=== PATIENT | female | born 1945 | race African-American/Black ===

== ENCOUNTER → 2017-10-22 12:11 | Outpatient (CLI) | payer MEDICARE, SELFPAY | PROVIDERS: Family Provider Family Medicine; PCP Family Medicine; Visit Provider Family Medicine | DX: L03.011 Cellulitis of right finger (principal) | CPT/HCPCS: 87070; 87077; 87186; 87205 ==

== ENCOUNTER → 2018-01-11 17:48 | Outpatient (CLI) | payer MEDICARE, SELFPAY ==
[2018-01-11 18:39] LABS: Absolute Lymphocyte Count 1.89 X10^3/ul (0.83-4.51); Absolute Neutrophil Count 4.6 X10^3/uL (2.0-7.7); Basophil# 0.03 X10^3/uL; Basophil% 0.4 % (0-1); Eosinophil# 0.17 X10^3/uL; Eosinophils% 2.4 % (0-5); Hematocrit 25.7 % (37-47); Hemoglobin 7.4 g/dl (12.0-15.0); Lymphocyte # 1.89 X10^3/ul (4.0); Lymphocyte % 26.3 % (19-41); Mean Corp Hgb Conc 28.8 g/gl (32-36); Mean Corpuscular Hgb 18.7 pg (27.0-32.0); Mean Corpuscular Volume 64.9 fL (81-99); Mean Platelet Vol. 9.4 fl (6.2-12.0); Monocyte# 0.52 X10^3/uL; Monocyte% 7.2 % (0-10); Neutrophil # 4.59 X10^3/uL (2.7-7.7); Neutrophil % 63.7 % (47-70); Platelet Count 313 K/mm3 (150-450); RBC Distribution Width CV 20.5 % (11.6-14.6); RBC Distribution Width SD 48.3 fl (35.1-43.9); Red Blood Count 3.96 M/mm3 (4.2-5.4); White Blood Count 7.2 K/mm3 (4.4-11.0)
--- NOTE | 2018-01-11 18:40 | RAD_ITS ---
STUDY: X-RAY - RIGHT HAND, ATTENTION FIFTH FINGER REASON FOR EXAM: Female, 73 years old. 3 weeks ago right pinky started to get infected at the nail. Fingernail consecutively removed, continued to get infected, now lots of swelling and pus. Patient is diabetic. TECHNIQUE: 3 view(s) of the finger were obtained. COMPARISON: None. FINDINGS: Normal metacarpal head. Normal metacarpophalangeal joint. Normal proximal phalanx. Normal middle phalanx. Normal distal phalanx. Normal proximal interphalangeal joint. Normal distal interphalangeal joint. Soft tissue swelling and soft tissue irregularity. There may be air under the nailbed. RAD/Finger(s) Min 2 Views IMPRESSION: Signs of osteomyelitis detected. Soft tissues findings as above. Electronically Signed: Glenna Stein MD at 7:46 EDT , Service support ,
[2018-01-11 18:41] LABS: Differential Indicated SCAN CRITERIA MET; POSITIVE COUNT NO; POSITIVE DIFFERENTIAL NO; POSITIVE MORPHOLOGY YES
[2018-01-11 19:13] LABS: ALB/GLOB Ratio 0.6 RATIO (0.9-2.4); AST(SGOT) 14 U/L (15-37); Alanine Aminotransfer ALT/SGPT 19 U/L (13-56); Albumin, Serum 2.9 g/dL (3.2-5.0); Alkaline Phosphatase 120 U/L (45-117); Anion Gap 8 (5-15); BUN 15 mg/dL (7-18); Calcium,Total 10.5 mg/dL (8.5-10.1); Chloride 97 mmol/L (98-107); EST Glomerular Filtration Rate 58 mL/min (>60); Est Glom Filt Rate - Afr Amer 70 mL/min (>60); Globulin 5.2 g/dL (2.2-4.2); Glucose 407 mg/dL (74-106); Potassium 3.8 mmol/L (3.5-5.1); Protein, Total 8.1 g/dL (6.4-8.2); Sodium Level 132 mmol/L (136-145); Uric Acid 5.1 mg/dL (2.6-6.0)
[2018-01-11 19:21] LABS: Erythrocyte Sedimentation Rate > 130 mm/hr (0-30)
[2018-01-11 19:28] LABS: Anisocytosis 1+; Hypochromasia 1+; Microcytosis 1+; Platelet Estimate ADEQUATE (ADEQ); Polychromasia 1+
== END ==
PROVIDERS: Family Provider Family Medicine; PCP Family Medicine; Visit Provider Family Medicine
DX: L03.011 Cellulitis of right finger (principal)
CPT/HCPCS: 36415; 73140; 80053; 84550; 85025; 85652

== ENCOUNTER → 2018-02-24 12:55 | Outpatient (CLI) | payer MEDICARE, SELFPAY ==
--- NOTE | 2018-03-10 11:27 | LEAS ---
Arterial Study - Arterial Study Arterial Study: Date of scan 02/24/[address] Mullen History: Patient with claudication and atherosclerosis. History of diabetes hypertension hyperlipidemia. Interpretation: Right lower extremity appears normal pulsatile waveform from the thigh down to the calf ankle out to the digits duplex appears to be biphasic to almost triphasic waveform of the DP. RADHA of the PT is 0.52 of the DP is 0.92. Digit brachial index 0.39. With exercise he is patient was ambulated in the hallway slow-paced less than a minute had to stop secondary to weakness and shortness of breath post RADHA was 0.88. Left lower extremity normal pulsatile waveform down from the thigh down to the calf ankle out through the digits duplex appears to be near triphasic waveform the DP. RADHA 0.68 of the PT and 0.88 at the DP. After exercise after minute this was at 0.85. Impression: 1. No evidence of significant arterial occlusive disease of the right lower extremity with an RADHA 0.92 and no significant change with walking although was a limited walking study. 2. Left lower extremity with mild arterial occlusive disease at rest with an RADHA 0.88. Again a substandard ambulation but no change in the RADHA with this. 3. Bilateral small vessel disease with the digit brachial index 0.39 on the right 0.44 on the left
== END ==
PROVIDERS: Family Provider Family Medicine; PCP Family Medicine; Visit Provider Surgery Vascular Surgery
DX: I70.213 Atherosclerosis of native arteries of extremities with intermittent claudication, bilateral legs (principal)
CPT/HCPCS: 93924

== ENCOUNTER → 2018-05-07 12:25 | Outpatient (CLI) | payer MEDICARE, SELFPAY ==
[2018-05-07 15:03] LABS: Absolute Lymphocyte Count 2.76 X10^3/ul (0.83-4.51); Absolute Neutrophil Count 4.4 X10^3/uL (2.0-7.7); Basophil# 0.03 X10^3/uL; Basophil% 0.4 % (0-1); Eosinophil# 0.29 X10^3/uL; Eosinophils% 3.7 % (0-5); Hemoglobin 7.3 g/dl (12.0-15.0); Lymphocyte # 2.76 X10^3/ul (4.0); Lymphocyte % 34.8 % (19-41); Mean Corp Hgb Conc 28.1 g/gl (32-36); Mean Corpuscular Hgb 18.3 pg (27.0-32.0); Mean Corpuscular Volume 65.2 fL (81-99); Monocyte# 0.48 X10^3/uL; Monocyte% 6.1 % (0-10); Neutrophil # 4.36 X10^3/uL (2.7-7.7); Platelet Count 345 K/mm3 (150-450); RBC Distribution Width CV 20.8 % (11.6-14.6); RBC Distribution Width SD 48.8 fl (35.1-43.9); Red Blood Count 3.99 M/mm3 (4.2-5.4); White Blood Count 7.9 K/mm3 (4.4-11.0)
[2018-05-07 15:18] LABS: ALB/GLOB Ratio 0.6 RATIO (0.9-2.4); AST(SGOT) 29 U/L (15-37); Alanine Aminotransfer ALT/SGPT 28 U/L (13-56); Albumin, Serum 2.9 g/dL (3.2-5.0); Alkaline Phosphatase 114 U/L (45-117); Anion Gap 9 (5-15); BUN 15 mg/dL (7-18); BUN/Creat Ratio 17.4 RATIO (10-20); Calcium,Total 10.1 mg/dL (8.5-10.1); Chloride 96 mmol/L (98-107); Creatinine, Serum 0.86 mg/dL (0.55-1.02); EST Glomerular Filtration Rate 68 mL/min (>60); Est Glom Filt Rate - Afr Amer 83 mL/min (>60); Globulin 5.2 g/dL (2.2-4.2); Glucose 214 mg/dL (74-106); Protein, Total 8.1 g/dL (6.4-8.2); Sodium Level 134 mmol/L (136-145); Thyroid Stim Hormone (TSH) 0.64 uIU/mL (0.358-3.74)
[2018-05-07 15:23] LABS: POSITIVE COUNT NO; POSITIVE DIFFERENTIAL NO; POSITIVE MORPHOLOGY YES
[2018-05-07 15:24] LABS: Differential Indicated SCAN CRITERIA MET
[2018-05-07 15:25] LABS: Platelet Estimate ADEQUATE (ADEQ)
[2018-05-07 15:26] LABS: Anisocytosis 2+; Hypochromasia 2+; Target Cells RARE
[2018-05-07 15:35] LABS: Erythrocyte Sedimentation Rate 84 mm/hr (0-30)
== END ==
PROVIDERS: Family Provider Family Medicine; PCP Family Medicine; Visit Provider Family Medicine
DX: R70.0 Elevated erythrocyte sedimentation rate (principal)
CPT/HCPCS: 36415; 80053; 84443; 85025; 85652; 86140

== ENCOUNTER → 2018-05-07 12:36 | Outpatient (CLI) | payer MEDICARE, SELFPAY | PROVIDERS: Family Provider Family Medicine; PCP Family Medicine; Visit Provider Family Medicine | DX: R11.10 Vomiting, unspecified (principal); R70.0 Elevated erythrocyte sedimentation rate | CPT/HCPCS: 36415; 74019; 80053; 84443; 85025; 85652; 86140 ==

== ENCOUNTER → 2018-06-14 12:36 | Outpatient (CLI) | payer MEDICARE, SELFPAY ==
[2018-06-14 14:06] LABS: Erythrocyte Sedimentation Rate 124 mm/hr (0-30)
[2018-06-14 14:13] LABS: Absolute Lymphocyte Count 2.26 X10^3/ul (0.83-4.51); Absolute Neutrophil Count 6.5 X10^3/uL (2.0-7.7); Basophil# 0.02 X10^3/uL; Basophil% 0.2 % (0-1); Eosinophil# 0.16 X10^3/uL; Eosinophils% 1.7 % (0-5); Hematocrit 25.5 % (37-47); Hemoglobin 7.1 g/dl (12.0-15.0); Lymphocyte # 2.26 X10^3/ul (4.0); Lymphocyte % 23.9 % (19-41); Mean Corp Hgb Conc 27.8 g/gl (32-36); Mean Corpuscular Volume 64.7 fL (81-99); Monocyte# 0.54 X10^3/uL; Monocyte% 5.7 % (0-10); Neutrophil # 6.47 X10^3/uL (2.7-7.7); Neutrophil % 68.4 % (47-70); Platelet Count 327 K/mm3 (150-450); RBC Distribution Width CV 20.9 % (11.6-14.6); RBC Distribution Width SD 49.1 fl (35.1-43.9); Red Blood Count 3.94 M/mm3 (4.2-5.4); White Blood Count 9.5 K/mm3 (4.4-11.0)
[2018-06-14 14:14] LABS: Differential Indicated SCAN CRITERIA MET; POSITIVE COUNT NO; POSITIVE DIFFERENTIAL NO; POSITIVE MORPHOLOGY YES
[2018-06-14 14:33] LABS: Anisocytosis 2+; Platelet Estimate ADEQUATE (ADEQ); Polychromasia RARE
[2018-06-14 14:34] LABS: Hypochromasia 3+; Microcytosis 2+
[2018-06-14 14:35] LABS: ALB/GLOB Ratio 0.6 RATIO (0.9-2.4); AST(SGOT) 19 U/L (15-37); Alanine Aminotransfer ALT/SGPT 30 U/L (13-56); Alkaline Phosphatase 110 U/L (45-117); Anion Gap 12 (5-15); BUN 14 mg/dL (7-18); BUN/Creat Ratio 14.1 RATIO (10-20); Calcium,Total 10.3 mg/dL (8.5-10.1); Chloride 95 mmol/L (98-107); Creatinine, Serum 0.99 mg/dL (0.55-1.02); EST Glomerular Filtration Rate 58 mL/min (>60); Est Glom Filt Rate - Afr Amer 70 mL/min (>60); Globulin 5.1 g/dL (2.2-4.2); Glucose 352 mg/dL (74-106); Potassium 3.2 mmol/L (3.5-5.1); Protein, Total 8.1 g/dL (6.4-8.2); Sodium Level 135 mmol/L (136-145); Thyroid Stim Hormone (TSH) 0.46 uIU/mL (0.358-3.74)
[2018-06-15 13:09] LABS: PTHIN 137.3 pg/mL (18.4-80.1)
== END ==
PROVIDERS: Family Provider Family Medicine; PCP Family Medicine; Referring Provider Family Medicine; Visit Provider Family Medicine
DX: E11.49 Type 2 diabetes mellitus with other diabetic neurological complication (principal); R70.0 Elevated erythrocyte sedimentation rate; E04.2 Nontoxic multinodular goiter
CPT/HCPCS: 80053; 83970; 84443; 85025; 85652; 86140

== ENCOUNTER → 2018-06-25 13:13 | Outpatient (CLI) | payer MEDICARE, SELFPAY ==
--- NOTE | 2018-06-25 13:19 | CT_ITS ---
STUDY: CT ABDOMEN AND PELVIS WITH CONTRAST REASON FOR EXAM: Female, 73 years old. Abdominal distention and bloating. RADIATION DOSAGE (If Supplied By Facility): CTDIvol = ( 15.05 ) mGy, DLP = ( 963.59 ) mGycm TECHNIQUE: Transaxial images were obtained from the dome of the diaphragm to the symphysis pubis with oral contrast. 100ml ml of Isovue 300 contrast was administered. Sagittal and coronal images were reconstructed. Individualized dose optimization techniques were used for this CT. COMPARISON: Comparison is made with prior examination dated December 07, 2014. FINDINGS: The visualized lung bases are unremarkable. Coronary artery calcification. Normal liver. There are tiny gallstones. There is a 2.2 cm x 2.1 cm rounded hypodensity in the midportion of the spleen. This was not well seen on the prior study. Normal pancreas. Normal bilateral adrenal glands. Normal right kidney. Normal left kidney. Normal visualized stomach. Normal small intestine. Large amount of fecal material is seen in the rectosigmoid colon. The appendix is visualized and appears normal. There is diffuse atherosclerotic calcification of the abdominal aorta and its major visceral branches., without a demonstrated aneurysm. Normal inferior vena cava. There is borderline retroperitoneal lymphadenopathy with enlarged nodes no greater than 10mm in the short axis diameter. Markedly distended urinary bladder. Calcified fibroid uterus. Normal abdominal wall. There are diffuse degenerative changes of the visualized lumbar spine. CT/Abdomen/Pelvis WITH Contrast IMPRESSION: Distended urinary bladder. Tiny gallstones. Electronically Signed: Robert Randall MD at 14:37 EDT Tel [phone], Service support ,
== END ==
PROVIDERS: Family Provider Family Medicine; PCP Family Medicine; Referring Provider Family Medicine; Visit Provider Family Medicine
DX: R14.0 Abdominal distension (gaseous) (principal)
CPT/HCPCS: 74177; Q9967

== ENCOUNTER 2018-06-25 14:16 | Emergency (ER) | payer MEDICARE, SELFPAY ==
[2018-06-25 14:17] VITALS: BP 141/94; PULSE 79; RESP 18; TEMP 36.8; O2SAT 100; BMI 29.4
[2018-06-25 16:35] LABS: Bacteria 0 SEEN /hpf (None Seen); Mucous, Urine 0 SEEN /hpf (<or=2+); Red Blood Cells-Urine 0 SEEN /hpf (0-5); Squamous Epithelial Cells - UA 0 SEEN /hpf (5-10); White Blood Cells 0 SEEN /hpf (0-5)
[2018-06-25 16:41] LABS: Color, Urine Yellow (Yellow); Glucose, Dipstick 1000 mg/dl (Normal); Ketone-Dipstick Negative (Negative); Leukocyte Esterase-Dipstick Negative /ul (Negative); Nitrite-Dipstick Negative (Negative); Occult Blood-Urine Negative /ul (Negative); Protein-Dipstick 15 mg/dl (Negative); Urine Bilirubin Dipstick Negative (Negative); Urine Clarity Clear (Clear); Urine Urobilinogen Normal (Normal); Urine pH 6.5 (5.0 - 8.0)
[2018-06-25 17:11] LABS: Anion Gap 8 (5-15); BUN 7 mg/dL (7-18); BUN/Creat Ratio 8.9 RATIO (10-20); Calcium,Total 9.4 mg/dL (8.5-10.1); Chloride 97 mmol/L (98-107); Creatinine, Serum 0.78 mg/dL (0.55-1.02); EST Glomerular Filtration Rate 76 mL/min (>60); Est Glom Filt Rate - Afr Amer 92 mL/min (>60); Estimated Creatinine Clearance 40.83 ml/min; Glucose 236 mg/dL (74-106); Potassium 3.5 mmol/L (3.5-5.1); Sodium Level 133 mmol/L (136-145)
--- NOTE | 2018-06-25 18:48 | ED.VISSUMM ---
- ER Visit Summary Date of Service: 06/25/18 Chief Complaint: Presents from radiology suite because of abdominal fullness, distention and problem with bladder History of Present Illness: The patient is a 73 F who states she has been having difficulty urinating for a while. She states she only urinates a small amount. She does denies fever or chills. She does complain of night sweats. Past history is remarkable for breast cancer with lumpectomy. She states she has hard stool that her marble size. She denies any blood or mucus. She denies black or maroon stool. She denies visual, ocular auditory symptoms. She denies any ENT symptoms. She denies cardiac or respiratory symptoms. She denies myalgias, arthralgias, neck or back pain. She denies rash or any skin lesions. She denies itching. She denies headache, general is weakness, anesthesia, paresthesia or motor weakness. She denies problems with bleeding or allergies. Physical Examination: Vitals noted and remarkable for elevated blood pressure 141/94. Head is atraumatic normocephalic. Pupils are equal round reactive. Extraocular muscles are intact. TMs are pearly white with landmarks noted. Nares patent with no drainage. Posterior pharynx without erythema or exudate. Uvula is midline. There is no dysphonia or dysphasia. Trachea is midline. There is no stridor with auscultation of the neck. Heart is regular without murmur, gallop or rub. S1 and S2 are normal. Lungs are clear to auscultation with good movement of air bilaterally. Abdomen is distended tympanitic with diminished bowel sounds. Abdomen is nontender. There is no palpable or pulsatile mass. There is no abdominal bruit. There is no CVA tenderness. There is no asymmetry, swelling, discoloration, leg vein distention, palpable cords or tenderness along the distribution of the deep venous system. There is no edema. Skin without rash or lesions. Neuro exam is nonfocal. Test Results: Bladder scan indicated greater than thousand cc of urine in her bladder. Serna was placed and 2.6 L drained. UA is remarkable for glucose. Basic metabolic panel is remarkable glucose of 236. Creatinine 0.78. This is compared to creatinine obtained June 14. Emergency Department Course and Treatment: Since bladder scan indicated greater liter of urine concern for obstructive nephropathy and reason for basic metabolic panel. Serna was placed. CAT scan of the abdomen revealed a distended bladder and fecal stasis in the sigmoid rectal region. Patient reported 2 bowel movements and states her abdomen is not as distended or bloated. Treatment Plan: MiraLAX 3 times a day and referral to Dr. Andres Edmondson for urinary retention. Disposition: Discharge to home Impression: 1. Urinary retention, acute 2. Constipation 3. Hyperglycemia type II diabetic This note was generated with [employer] dictation software. It may contain incorrect words, spelling, and punctuation that were not noted in review of the chart prior to signing ED Disposition - Plan for ED Patient: Disposition: Home or Assisted Living Chief Complaint: Abd Pain Instructions: ED Constipation, ED Retention Urinary Female, ED Catheter Care Serna Referrals: Ramone Smiley MD [Primary Care Provider] - Presley Edmondson MD [STAFF PHYSICIAN] - 5-7 Days Additional Instructions: Take Metamucil 2-3 times a day for the next [address] Edmondson's office tomorrow morning for appointment this coming week.
[2018-06-25 19:42] VITALS: BP 145/67; PULSE 85; RESP 17; RESP 18
== END 2018-06-25 19:48 | disposition home or self-care (01) ==
PROVIDERS: Emergency Provider Emergency Medicine; Family Provider Family Medicine; PCP Family Medicine
DX: R33.9 Retention of urine, unspecified (principal); K59.00 Constipation, unspecified; E11.65 Type 2 diabetes mellitus with hyperglycemia; R14.0 Abdominal distension (gaseous); E66.9 Obesity, unspecified; Z85.3 Personal history of malignant neoplasm of breast; Z86.718 Personal history of other venous thrombosis and embolism; Z86.711 Personal history of pulmonary embolism; Z87.891 Personal history of nicotine dependence
CPT/HCPCS: 51702; 74177; 80048; 81001; 99285; Q9967; A4216

== ENCOUNTER 2018-07-04 01:20 | Emergency (ER) | payer MEDICARE, SELFPAY ==
[2018-07-04 01:20] VITALS: BP 159/59; PULSE 91; RESP 16; TEMP 36.7; O2SAT 98; BMI 30.1
--- NOTE | 2018-07-04 01:25 | ED.DCSUM_ITS ---
- ER Visit Summary Date of Service: 07/04/18 Chief Complaint: Urinary retention History of Present Illness: The patient is a 73 F presents to the emergency department with urinary retention. The patient was actually seen here just about 10 days ago for the same. At that time, she had urinary retention and had a Serna catheter placed. She had over 2 L of urine that was drained. She had a CT scan of her abdomen which showed some calcifications of her aorta, but no aneurysm. She also had mild constipation. The patient did follow-up with Dr. Edmondson. She had the catheter removed earlier this week, but since then, has had return of her difficulty urinating. She states she is only had dribbling. She denies any fevers or chills. She denies any nausea or vomiting. She denies any recent change in medications. She states she has been moving her bowels without issue. Physical Examination: Vital signs reviewed General: Well-nourished, well-developed Head: Normocephalic, atraumatic Eyes: Pupils equal and reactive, extraocular muscles intact Neck, supple, no lymphadenopathy Heart: Regular rate and rhythm Respiratory: No distress, clear bilaterally Abdomen: Soft, nontender, nondistended, no peritoneal signs Back: Nontender Extremities: Nontender, no edema, no cords Skin: Normal color no rash Neuro: Alert and oriented, no focal or lateralizing deficits Test Results: [] Emergency Department Course and Treatment: The patient presents with acute urinary retention. Serna was placed. She had 2 L of urine out almost immediately and marked improvement of her symptoms. She was complaining of some mild pain, but that was improved after the Serna was placed. The patient was able to fully drain. There was some scant blood within the urine, but no clots. There is no evidence of further obstruction. Her urine does show evidence of infection. Culture was added. Based on the patient's allergies, she will be started on Cipro. I did drug and alcohol counsellor her that she needs to follow-up with Dr. Carrillo as this is recurrent retention. I am going to treat her constipation with magnesium citrate. The patient is comfortable with this plan of care. She will be discharged home. Treatment Plan: [] Disposition: [] Impression: Acute urinary retention 2. Acute cystitis This note was generated with [employer] software. It may contain incorrect words, spelling, and punctuation that were not noted in review of the chart prior to signing ED Disposition - Plan for ED Patient: Disposition: Home or Assisted Living Chief Complaint: Complaint Instructions: ED Retention Urinary Female, ED UTI Cystitis Female Prescriptions: Ciprofloxacin [Cipro] 500 mg PO BID #14 tab Referrals: Presley Edmondson MD [STAFF PHYSICIAN] -
[2018-07-04 01:46] LABS: Color, Urine Yellow (Yellow); Glucose, Dipstick 1000 mg/dl (Normal); Ketone-Dipstick Negative (Negative); Leukocyte Esterase-Dipstick 500 /ul (Negative); Nitrite-Dipstick Negative (Negative); Occult Blood-Urine 250 /ul (Negative); Protein-Dipstick 30 mg/dl (Negative); Urine Bilirubin Dipstick Negative (Negative); Urine Clarity Cloudy (Clear); Urine Urobilinogen Normal (Normal)
[2018-07-04 01:51] LABS: Mucous, Urine 0 SEEN /hpf (<or=2+); Squamous Epithelial Cells - UA 0 SEEN /hpf (5-10)
[2018-07-04 01:52] LABS: Yeast-Urine 3+ /hpf (None Seen)
[2018-07-04 01:53] LABS: Bacteria RARE /hpf (None Seen); Red Blood Cells-Urine 10-25 SEEN /hpf (0-5); White Blood Cells 25-50 SEEN /hpf (0-5)
[2018-07-04 02:36] VITALS: BP 148/70; PULSE 85; RESP 14; O2SAT 98
[2018-07-04] MEDS: Ciprofloxacin 500 MG Tablet PO (02:39)
[2018-07-04] MEDS: Magnesium Citrate 300 ML PO (02:39)
== END 2018-07-04 02:48 | disposition home or self-care (01) ==
LOC: ED 01:51
PROVIDERS: Emergency Provider Emergency Medicine; Family Provider Family Medicine; PCP Family Medicine
DX: R33.9 Retention of urine, unspecified (principal); N30.00 Acute cystitis without hematuria; Z85.3 Personal history of malignant neoplasm of breast; Z87.891 Personal history of nicotine dependence
CPT/HCPCS: 51702; 81001; 87086; 87088; 99284

== ENCOUNTER → 2018-08-12 18:47 | Outpatient (CLI) | payer MEDICARE, SELFPAY ==
--- OUTSIDE RECORDS SUMMARY | 2018-09-28 14:59 | XMS RPT_ITS ---
:1945 Author Organization OHIP Support Name Relationship Address Phone EMMA DONALDSON Unavailable [address] + [place] [address] JANEEN, MERADETH Unavailable [address] + [place] [address] R Unavailable Unavailable Unavailable ANH DONALDSONON Unavailable [address] + [place] [address] JANEEN, MERADETH Unavailable [address] + [place] [address] R Unavailable Unavailable Unavailable ANH DONALDSONON Unavailable [address] + [place] [address] JANEEN, MERADETH Unavailable [address] + [place] [address] R Unavailable Unavailable Unavailable ANIKAANHON Unavailable [address] + [place] [address] JANEEN, MERADETH Unavailable [address] + [place] [address] R Unavailable Unavailable Unavailable ANIKAANHON Unavailable [address] + [place] [address] JANEEN, MERADETH Unavailable [address] + [place] [address] R Unavailable Unavailable Unavailable ANIKA EMMA Unavailable [address] + [place] [address] JANEEN, MERADETH Unavailable [address] + [place] [address] R Unavailable Unavailable Unavailable ANIKA, EMMA Unavailable [address] + [place] [address] JANEEN, MERADETH Unavailable [address] + [place] [address] R Unavailable Unavailable Unavailable ANIKA EMMA Unavailable [address] + [place] [address] JANEEN, MERADETH Unavailable [address] + [place] [address] R Unavailable Unavailable Unavailable ANIKA EMMA Unavailable [address] + [place] [address] JANEEN, MERADETH Unavailable [address] + [place] [address] R Unavailable Unavailable Unavailable ANIKA EMMA Unavailable [address] + [place] [address] JANEEN, MERADETH Unavailable [address] + [place] [address] R Unavailable Unavailable Unavailable ANIKA, EMMA Unavailable [address] + [place] [address] JANEEN, MERADETH Unavailable [address] + [place] [address] R Unavailable Unavailable Unavailable ANIKA EMMA Unavailable [address] + [place] [address] JANEEN, MERADETH Unavailable [address] + [place] [address] R Unavailable Unavailable Unavailable ANIKA EMMA Unavailable [address] + [place] [address] JANEEN, MERADETH Unavailable [address] + [place] [address] R Unavailable Unavailable Unavailable ANIKA EMMA Unavailable [address] + [place] [address] JANEEN, MERADETH Unavailable [address] + [place] [address] R Unavailable Unavailable Unavailable ANIKA EMMA Unavailable [address] + [place] [address] JANEEN, MERADETH Unavailable [address] + [place] [address] R Unavailable Unavailable Unavailable ANIKA EMMA Unavailable [address] + [place] [address] JANEEN, MERADETH Unavailable [address] + [place] [address] R Unavailable Unavailable Unavailable ANIKA, EMMA Unavailable [address] + [place] [address] JANEEN, MERADETH Unavailable [address] + [place] [address] R Unavailable Unavailable Unavailable ANIKA, EMMA Unavailable [address] + [place] [address] JANEEN, MERADETH Unavailable [address] + [place] [address] R Unavailable Unavailable Unavailable ANIKA, EMMA Unavailable [address] + [place] [address] JANEEN, MERADETH Unavailable [address] + [place] [address] R Unavailable Unavailable Unavailable ANIKA, EMMA Unavailable [address] + [place] [address] JANEEN, MERADETH Unavailable [address] + [place] [address] R Unavailable Unavailable Unavailable ANIKA, EMMA Unavailable [address] + [place] [address] JANEEN, MERADETH Unavailable [address] + [place] [address] R Unavailable Unavailable Unavailable ANIKA, EMMA Unavailable [address] + [place] [address] JANEEN, MERADETH Unavailable [address] + [place] [address] R Unavailable Unavailable Unavailable ANIKA, EMMA Unavailable [address] + [place] [address] JANEEN, MERADETH Unavailable [address] + [place] [address] R Unavailable Unavailable Unavailable ANIKA, EMMA Unavailable [address] + [place] [address] JANEEN, MERADETH Unavailable [address] + [place] [address] R Unavailable Unavailable Unavailable ANIKA, EMMA Unavailable [address] + [place] [address] JANEEN, MERADETH Unavailable [address] [phone] [place] [address] R Unavailable Unavailable Unavailable EMMA DONALDSON Unavailable [address] + [place] [address] MAREI VERNONADETH Unavailable [address] [facility] + [place] [address] R Unavailable Unavailable Unavailable Care Team Providers Name Role Phone LEE ALAMO Attending Unavailable PROVIDER, UNKNOWN Referring Unavailable Olga Donis Attending Unavailable [facility] Unavailable JewelsOlga العلي Referring Unavailable [facility] Unavailable Sementi, Shakira Admitting Unavailable Sementi, Shakira Attending Unavailable Sementi, Shakira Referring Unavailable CalabrettaAnnieTomasz Consulting Unavailable Sementi, Shakira Admitting Unavailable Sementi, Shakira Attending Unavailable Sementi, Shakira Referring Unavailable [facility] Unavailable Sementi, Shakira Consulting Unavailable Sementi, Shakira Admitting Unavailable CalabrTomasz boston Attending Unavailable Sementi, Shakira Referring Unavailable [facility] Unavailable Calabretta, Tomasz Consulting Unavailable Sementi, Shakira Consulting Unavailable Sementi, Shakira Admitting Unavailable Sementi, Shakira Attending Unavailable Sementi, Shakira Referring Unavailable [facility] Unavailable Calabretta, Tomasz Consulting Unavailable Sementi, Shakira Consulting Unavailable Sementi, Shakira Admitting Unavailable CalabrettaAnnieTomasz Attending Unavailable Sementi, Shakira Referring Unavailable [facility] Unavailable Calabretta, Tomasz Consulting Unavailable Sementi, Shakira Consulting Unavailable Sementi, Shakira Admitting Unavailable Sementi, Shakira Attending Unavailable Sementi, Shakira Referring Unavailable [facility] Unavailable Calabretta, Tomasz Consulting Unavailable Sementi, Shakira Consulting Unavailable Sementi, Shakira Admitting Unavailable Calabretta, Tomasz Attending Unavailable Sementi, Shakira Referring Unavailable [facility] Unavailable Calabretta, Tomasz Consulting Unavailable Sementi, Shakira Consulting Unavailable Sementi, Shakira Admitting Unavailable Sementi, Shakira Attending Unavailable Sementi, Shakira Referring Unavailable [facility] Unavailable Calabretta, Tomasz Consulting Unavailable Sementi, Shakira Consulting Unavailable Sementi, Shakira Admitting Unavailable Calabretta, Tomasz Attending Unavailable Sementi, Shakira Referring Unavailable Smiley, Ramone Primary Care Unavailable Calabretta, Tomasz Consulting Unavailable Sementi, Shakira Consulting Unavailable Sementi, Shakira Admitting Unavailable Sementi, Shakira Attending Unavailable Sementi, Shakira Referring Unavailable Smiley, Ramone Primary Care Unavailable Calabretta, Tomasz Consulting Unavailable Sementi, Shakira Consulting Unavailable Sementi, Shakira Admitting Unavailable Calabretta, Tomasz Attending Unavailable Sementi, Shakira Referring Unavailable Smiley, Ramone Primary Care Unavailable Calabretta, Tomasz Consulting Unavailable Sementi, Shakira Consulting Unavailable Sementi, Shakira Admitting Unavailable Sementi, Shakira Attending Unavailable Sementi, Shakira Referring Unavailable Smiley, Armone Primary Care Unavailable Calabretta, Tomasz Consulting Unavailable Sementi, Shakira Consulting Unavailable Sementi, Shakira Admitting Unavailable Sementi, Shakira Attending Unavailable Sementi, Shakira Referring Unavailable Smiley, Ramone Primary Care Unavailable Calabretta, Tomasz Consulting Unavailable Sementi, Shakira Consulting Unavailable Smiley, Ramone Attending Unavailable Smiley, Ramone Primary Care Unavailable Smiley, Ramone Referring Unavailable Smiley, Ramone Attending Unavailable Smiley, Ramone Referring Unavailable Smiley, Ramone Primary Care Unavailable Jeyson Almonte Attending Unavailable Smiley, Ramone Referring Unavailable Wellington Mullen Attending Unavailable Smiley, Ramone Primary Care Unavailable MullenWellington buckley Referring Unavailable Smiley, Ramone Attending Unavailable Smiley, Ramone Primary Care Unavailable Smiley, Ramone Attending Unavailable Smiley, Ramone Referring Unavailable Smiley, Ramone Primary Care Unavailable Smiley, Ramone Attending Unavailable Smiley, Ramone Referring Unavailable Smiley, Ramone Primary Care Unavailable Smiley, Ramone Attending Unavailable Smiley, Ramone Primary Care Unavailable Smiley, Ramone Referring Unavailable Smiley, Ramone Primary Care Unavailable Marcial, Kwaku Attending Unavailable Smiley, Ramone Primary Care Unavailable Carlos Hunt Attending Unavailable Se Good Attending Unavailable Sementi, Shakira Referring Unavailable Smiley, Ramone Primary Care Unavailable Demetrius Arroyo Attending Unavailable PROBLEMS PROBLEMS DATE TYPE CONDITION / CODE ATTENDING STATUS SOURCE 09/02/2018 Unknown N17.9 - Acute kidney Sementi, Active [place] failure, unspecified [facility] / N17.9(ICD-10) Hospital Repository 08/13/2018 Unknown R30.0 - Dysuria / Jewels, Active [place] R30.0(ICD-10) Olga [facility] Repository 06/14/2018 Unknown R70.0 - Elevated Ramone Smiley Active [place] erythrocyte Community sedimentation rate / Hospital R70.0(ICD-10) Repository 06/14/2018 Unknown E11.49 - Type 2 Ramone Smiley Active [place] diabetes mellitus [facility] with other diabetic Hospital neurological Repository complication / E11.49(ICD-10) 06/14/2018 Unknown 790.1 - Elevated Ramone Smiley Active [place] sedimentation rate / Community 790.1(ICD-9) Hospital Repository 06/14/2018 Unknown 250.60 - Diabetes Ramone Smiley Active [place] with neurological Community manifestations, type Hospital II or unspecified Repository type, not stated as uncontrolled / 250.60(ICD-9) 05/07/2018 Unknown R11.10 - Vomiting, Ramone Smiley Active [place] unspecified / Community R11.10(ICD-10) Hospital Repository 02/24/2018 Unknown I70.213 - Wellington Mullen Active [place] 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 Medical Records Department [address] [place] [address] Emergency Department Summary 09/19/18 0957 MR#: [id number] Acct: [id number] Name: OLGA DONALDSON Rep #: [id number] : 1945 73 From: Jose Arroyo MD PCP: Ramone Smiley MD Status: REG ER - ER Visit Summary Date of Service: 09/19/18 Chief Complaint: Painful Mccall catheter site History of Present Illness: The patient is a 73 F with a Mccall catheter in place for urinary retention since July 2018. She reports 24 hours of dysuria and pain at the Mccall catheter site. She also noticed sediment material in the Mccall catheter and is concerned that she could have an infection that it could be obstructed. She denies fever, weakness, or confusion. No nausea or vomiting. Physical Examination: Vital signs are within normal limits. She is not in distress. Abdomen is soft and nontender. No suprapubic tenderness. No erythema or evidence of infection in the perineal/vaginal area on a female chaperoned examination. Test Results: Urinalysis revealed only leuk esterase. No other markers of infection. It was sent for a culture. Emergency Department Course and Treatment: The Mccall catheter appeared to be obstructed. It was switched out for a new one. Then flowed easily and nearly 1.5 L of urine drained. It is clear and colorless. It does not appear obviously infected on urinalysis but I did send it for a culture. Treatment Plan: She feels well on reexamination. Her symptoms have resolved. Her Mccall catheter appeared to be obstructed with sediment. I sent a urine culture but I do not feel she needs antimicrobials. She is comfortable going home. She will follow-up with her urologist and return here if worse. Disposition: Home stable Impression: Initial encounter Mccall catheter obstruction This note was generated with VenueAgent dictation software. It may contain incorrect words, spelling, and punctuation that were not noted in review of the chart prior to signing ED Disposition - Plan for ED Patient: Chief Complaint: Complaint Instructions: ED Catheter Care Mccall Referrals: Presley Edmondson MD [STAFF PHYSICIAN] - What to do if you have Problems For any increased pain, shortness of breath, bleeding, nausea or vomiting, chest pain, or any unexpected problems, contact your Primary Care Provider. Call [facility] ([phone]) or report to the closest Emergency Room. Call 911 if necessary. 09/19/18 1058 <Electronically signed by Jose Arroyo MD> Date Jose Arroyo MD Cosigner Signature (If Indicated): Date CC: Ramone Smiley MD URINALYSIS, COMPLETE Collected: 09/19/2018 Status: F Source: [place] 9:55 AM [facility] REPOSITORY Order Comment: How was Urine Obtained? SPECIAL EDUCATION ADMINISTRATOR TO SPECIFY TYPE CODE TESTS RESULT OUT OF RANGE REFERENCE UNITS LAB L400.3000 Yellow COLOR Normal Yellow LAB L400.3050 Clear Normal CLARITY Clear LAB L400.3200 Normal mg/dl High GLUCOSE, UR 100 LAB L400.3300 Negative mg/dL Normal BILIRUBIN URINE Negative LAB L400.3400 Negative mg/dl Normal KETONE UR Negative LAB L400.3465 1.002-1.030 Normal SP.GR. DIPSTX 1.010 LAB L400.3550 5.0 - 8.0 pH UR Normal 6.5 LAB L400.3600 Negative mg/dl High PROT 30 DIPSTX LAB L400.3700 Normal mg/dl Normal UROBILI Normal LAB L400.3750 Negative Normal NITRITE UR Negative LAB L400.3780 Negative /ul High OCCULT BLOOD-UR 250 LAB L400.3800 Negative /ul High LEUK ESTERASE 100 LAB L400.4050 0-5 /hpf WBC Normal 0-5 SEEN LAB L400.4100 0-5 /hpf 0 Normal RBC-UA SEEN LAB L400.4150 5-10 /hpf SQUAM 0 Normal EPI SEEN LAB L400.4300 None Seen /hpf 0 Normal BACTERIA SEEN LAB L400.4350 <or=2+ /hpf 0 Normal MUCUS, URINE SEEN LAB L400.5200 None Seen /hpf 2+ Normal YEAST-URINE Performed By: #### L400.0001 #### [facility] [address] [place], [place], [id number] Observed: 09/19/2018 Status: F Source: [place] CULTURE, URINE 9:55 AM [facility] REPOSITORY Urine Culture ORGANISM 1: Staphylococcus epidermidis Empire Count 25,000-50,000 ORGANISM 2: Enterococcus faecalis Empire Count 25,000-50,000 Staphylococcus epidermidis: REACTION Cefoxitin *NF POS Doxycline 1 S Daptomycin $$ 0.5 S Inducable Clindamycin Res[place] NEG Gentamicin $ <=0.5 S Levofloxacin $ >=8 R Linezolid $$$$ 2 S Moxifloxicin *NF >=8 R Nitrofurantoin $ <=16 S Oxacillin NF >=4 R Rifampin $$ <=0.5 S Tetracycline NF 2 S Trimethoprim/Sulfametho $ 80 R Vancomycin $ <=0.5 S (NF) indicates non-formulary drug at [facility]. Approval by Infectious Disease Specialist required before non-formulary drugs may be ordered and/or dispensed. * CLSI guidelines does not recommend testing of cephalosporins. This interpretation is deduced from Beta-lactam/penicillin results. Enterococcus faecalis: REACTION Ampicillin $ <=2 S Daptomycin $$ 4 S Ciprofloxacin $ <=0.5 S Gentamicin SYN-S S Levofloxacin $ 1 S Linezolid $$$$ 2 S Nitrofurantoin $ <=16 S Streptomycin $ SYN-S S Tetracycline NF <=1 S Vancomycin $ 1 S (NF) indicates non-formulary drug at [facility]. Approval by Infectious Disease Specialist required before non-formulary drugs may be ordered and/or dispensed. * CLSI guidelines does not recommend testing of cephalosporins. This interpretation is deduced from Beta-lactam/penicillin results. Performed By: #### M100.0650 #### [facility] [address] [facility] [place], [address] DISCHARGE SUMMARY Observed: 08/26/2018 Status: F Source: [place] 12:46 PM [facility] REPOSITORY [facility] Medical Records Department [address] [place] [address] Discharge Summary 08/20/18 1308 MR#: [id number] Acct: [id number] Name: OLGA DONALDSON Rep #: [id number] : 1945 73 From: Connor Skaggs DO PCP: Ramone Smiley MD Status: DIS IN Y Location: [place] CO570-1 Discharge Date and Diagnosis Date of Admission: 08/14/18 Date of Discharge: 08/20/18 - Primary Discharge Diagnosis Active and Suspected Problems (Last Reviewed 08/14/18 @ 17:39 by Connor Skaggs DO) Dehydration (Acute)-resolved Acute renal failure (Acute) on chronic renal failure stage III hemoccult + stools Hyponatremia (Acute)-resolved Hypophosphatemia-resolved Urinary tract infection - resolved Hypercalcemia - resolved with hydration - Secondary Discharge Diagnosis Chronic Problems (Last Reviewed 08/14/18 @ 17:39 by Connor Skaggs DO) Former smoker (Chronic) Iron deficiency anemia (Chronic) Chronic renal failure, stage 3 (moderate) (Chronic) Urine retention (Chronic) Aortic stenosis (Chronic)-mild valve area in 2015 was 1.7cm2 COPD (chronic obstructive pulmonary disease) (Chronic) History of constipation (Chronic) Hx of venous thrombosis and embolism (Chronic) History of malignant neoplasm of breast (Chronic) Hypertension (Chronic) Type 2 diabetes mellitus (Chronic)-uncontrolled Asthma (Chronic) Hospital Course and Treatment Imaging Results: Clinical Impression(s) from Imaging Studies Abdomen/Pelvis CT 08/14/18 15:52 IMPRESSION: 1. No hydronephrosis. 2. Decompressed urinary bladder by Mccall catheter as compared to the prior study. Urinary bladder wall thickening cannot be excluded on this exam. 3. 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 Stercoral proctitis is possible. No pneumoperitoneum or ulceration. Increased since prior study. 4. Additional stable chronic changes, as above. Electronically Signed: Zechariah Redmond MD at 17:26 EST , Service support , KUB X-Ray 08/16/18 08:38 IMPRESSION: Large amount of fecal material is seen in the colon. Electronically Signed: Robert Randall MD at 14:17 EST Tel [phone], Service support , KUB X-Ray 08/17/18 07:46 IMPRESSION: Moderate amount of residual fecal material in the colon although this has improved. Electronically Signed: Robert Randall MD at 14:46 EST Tel [phone], Service support , KUB X-Ray 08/18/18 05:55 IMPRESSION: Nonspecific bowel gas pattern without evidence of obstruction. Decreased stool in the colon as compared to August 16, 2018. Electronically Signed: Kareem Ornelas MD at 5:46 EST , Service support , Laboratory Results - last 24 hr POC Glucose 192 H 245 H 171 H POC Glucose [address] Tomasz [facility] Operations: None Procedures: Colonoscopy - 1 polyp in the cecum-biopsy results pending, EGD - mild gastritis Summary of Care Provided: The patient is a 73 year old F with a past medical history of hypertension, COPD, breast cancer, CRF stage III, microcytic anemia, VTE, tobacco dependence and DM II who presented to the ED at [facility] on 08/14/2018 complaining of nausea, vomiting and decreased OP from a mccall catheter placed in Dr. Edmondson's office on . UA done at that time grew only yeast. Vital signs at presentation to the emergency room were temperature 97.8, pulse rate 73, blood pressure 103/35, respiratory rate 16 and she was 95-98% saturated on room air. White blood cell count was 10.4 with an unremarkable differential. Hemoglobin was 7.6 with an MCV of 62.7 and this had been declining over the past 2 years. Platelets were 424,000. Sodium was low at 126 and the chloride was low at 91. Potassium was 4.8 and the BUN was 25 with a creatinine of 1.63, up from 0.78 in May 2018. Random blood sugar was 371 and the calcium was increased to 10.5, likely secondary to dehydration. There was a very small amount of urine from the mccall at that time and it was brownish in color. She denied any fevers/chills. A noncontrasted CT of the abdomen and pelvis showed no hydronephrosis with a decompressed urinary bladder by a Mccall catheter. There was thickening of the urinary bladder wall and severe rectosigmoid fecal retention. She was admitted to the hospital with a dx of acute kidney injury on CRF stage 3 and fecal retention with N/V. IV fluids were ordered as well as iron studies, TSH. An ECHO was ordered to evaluate what sounded like an aortic MM....previously diagnosed as Mild but at the time of initial presentation the MM was a 3/6...possibly related to anemia and dehydration with flow MM. Serum iron was low at 14 and the iron saturation was 4.6 with a ferritin of 22. Sh was low at 0.01 however the T4 and free T3 were within normal limits. Cortisol was within normal limits in the a.m. at 11. The creatinine improved with hydration and on 08/16/2018 was down to 0.8. With hydration the hemoglobin dropped to 6.6 on 08/15/2018 and she received 2 units of packed red blood cells. The hemoglobin remained stable following transfusion and at discharge her hemoglobin was 8.9. A Hemoccult stool was positive and Dr. Tomasz Umaña was consulted for endoscopy. The patient received GoLYTELY, enemas, Dulcolax tablets and Gatorade with MiraLAX for 3 days until the stool was clear and on 08/19/2018 she underwent EGD and colonoscopy by Dr. Umaña. The EGD showed localized moderately congested mucosa in the gastric antrum and a biopsy was taken. The biopsy showed extensive congestion and fibrosis. Colonoscopy was performed and Dr. Umaña was able to reach the cecum. A polyp in the cecum was removed and the pathology showed a tubular adenoma. The exam was otherwise unremarkable. UA at admission had 50-100 WBCs and patient was started on an antibiotic however there was no growth from the urine and the antibiotic was discontinued. Hemoglobin A1c was 13. 7 and the patient admitted to not checking her blood sugars or taking her insulin. She also eventually admitted to eating uncooked rice daily for many years......on the third day of prep for colonoscopy she had a BM with rice present in the stool. She was treated with Lantus and SSI during her admission and the blood sugars were in the low 200's and high 100's. On the date of discharge she was afebrile with a blood pressure of 161/63, heart rate of 70 and she was 96% saturated on room air. Hemoglobin was 8.9. Electrolytes were within normal limits and the BUN was 3 with a creatinine of 0.73. She stated that she felt better than she had in years and she denied bloating, nausea, early satiety. She was discharged home on Levemir BID and Januvia. I suspect she will be more compliant with BID insulin as opposed to multiple daily doses. She was also given prescriptions for Protonix and Carafate and will follow up with Dr. Umaña in the office in 7-10 days. She was kept on a regimen of MiraLAX 17 g twice daily daily and senna ascites/docusate 1 twice daily. She was told she should be having a BM at least every other day and if she went 3 days without a BM she should take a laxative and call Dr. Smiley to increase the stool softeners. GENERAL: alert, oriented X 3, Cooperative, NAD ORAL: moist mucosa, no mucosal lesions NECK: No JVD, supple, trachea midline LUNGS: CTA, symmetric chest expansion HEART: RRR, Normal S1 and S2, no rub, no gallop ABDOMEN: soft, NT, ND, BS present, no guarding with palpation EXTREMITIES: no edema, no cyanosis, no calf tenderness SKIN: No rashes, no breakdown NEUROLOGIC: no focal neurologic deficits PSYCH: appropriate, normal affect, pleasant This note was generated with VenueAgent dictation software. It may contain incorrect words, spelling, and punctuation that were not noted in checking the note before signing. - Physical Exam Vital Signs Temp Pulse Resp BP Pulse Ox 98.6 F 69 18 118/54 L 99 08/20/18 08:01 08/20/18 08:09 08/20/18 08:01 08/20/18 08:09 08/20/18 08:01 Oxygen Delivery Method Room Air Weight: 160 lb 12.8 oz Body Mass Index (BMI) 28.5 Intake and Output for Last 24 Hours Microbiology Past 72 Hours 08/15/18 19:00 Urine Culture - Final Urine Catheter - Mccall Culture exhibits no growth. POC Glucose POC Glucose 210 H 171 H 245 H POC Glucose 192 H Discharge Activity: Return to Normal Activity Call your doctor if you observe: Fever of 101 or Higher, Inability to have a bowel movement, Shortness of breath, Dizziness, Fainting spells, Swelling in the ankles, Chest pain, Uncontrolled pain Home Medications: Medications to take at Discharge Lisinopril [Zestril] 40 mg PO BID 12/25/14 Aspirin [Aspirin, Baby] 81 mg PO DAILY@0800 01/21/16 Astepro 1 - 2 sprays NASAL BID 01/21/16 Sitagliptin Phosphate [Januvia] 50 mg PO DAILY 01/21/16 budesonide-formoterol HFA 160 mcg-4.5 mcg/actuation aerosol inhaler 2 puff INHALATION DAILY g 01/12/18 sodium chloride 0.65 % nasal spray aerosol 1 spray INTRANASAL Q2H PRN PRN 01/12/18 Albuterol Inhaler [Ventolin Hfa] 2 puff INHALATION Q4H PRN PRN 08/16/18 Bisacodyl [Dulcolax] 5 mg PO DAILY PRN 08/16/18 Calcium Carbonate 600 mg PO DAILY 08/16/18 Cod Liver Oil PO BREAKFAST 08/16/18 Diltiazem HCl [Cardizem LA] 180 mg PO DAILY 08/16/18 Ferrous Gluconate 325 mg PO BID 08/16/18 Lubiprostone [Amitiza] 24 mcg PO BIDCM 08/16/18 Magnesium Oxide [Mag-Ox 400] 400 mg PO BIDCM 08/16/18 Metoprolol Tartrate [Lopressor (beta jefe)] 25 mg PO BID 08/16/18 Multivitamins,Therapeutic [Multivitamin] 1 tablet PO DAILY 08/16/18 Potassium Citrate [Potassium Citrate ER] 5 meq PO BID 08/16/18 Pravastatin Sodium 20 mg PO QHS 08/16/18 Psyllium [Metamucil] 1 packet PO TID 08/16/18 proMETHazine tablet [Phenergan tablet] 12.5 mg PO Q8H PRN PRN 08/16/18 Ascorbic Acid [Vitamin C] 500 mg PO BID #60 capsule 08/20/18 Insulin Detemir [Levemir FlexPen] 25 units SC BID #0 08/20/18 Pantoprazole Sodium [Protonix] 40 mg PO DAILY #30 tablet 08/20/18 Polyethylene Glycol 3350 [Miralax] 17 gm PO BID #60 packet 08/20/18 Sennosides/Docusate Sodium [Senna-Docusate Sodium Tablet] 1 each PO BID #60 tablet 08/20/18 Sitagliptin Phosphate [Januvia] 50 mg PO DAILY #30 tablet 08/20/18 Sucralfate [Carafate] 1 gm PO 1HR_ACHS #120 tablet 08/20/18 Following Prescrptions Were Given to Patient: Pantoprazole Sodium [Protonix] 40 mg PO DAILY #30 tablet Sitagliptin Phosphate [Januvia] 50 mg PO DAILY #30 tablet Sucralfate [Carafate] 1 gm PO 1HR_ACHS #120 tablet Ascorbic Acid [Vitamin C] 500 mg PO BID #60 capsule Polyethylene Glycol 3350 [Miralax] 17 gm PO BID #60 packet Sennosides/Docusate Sodium [Senna-Docusate Sodium Tablet] 1 each PO BID #60 tablet Primary Care Physician: Ramone Smiley MD [Primary Care Provider] - Please follow up with your Primary Care Physician in: 2-3 weeks Please Follow Up With: Tomasz Umaña MD When: 7-10 days Patient Instructions: Treating Constipation Disposition: Home Minutes spent on discharge:: 35 Medical Necessity - Tobacco Use Smoking Status: Former smoker Tobacco Use: Non-smoker Meaningful Use Info Meaningful Use Diagnoses (Choose all that apply): None applicable Code Visit Inpatient E AND M: 40011 Disch Hosp 08/26/18 1246 <Electronically signed by Connor Skaggs DO> Date Connor Skaggs DO Cosigner Signature (if applicable): Date CC: Tomasz Umaña MD; Shakira Skaggs; Ramone Smiley MD Signed DISCHARGE INSTRUCTION Observed: 08/20/2018 Status: F Source: PERU 1:08 PM [facility] REPOSITORY [facility] Medical Records Department [address] [place] [address] Instructions for Home/Discharge Instructions 08/20/18 1256 MR#: [id number] Acct: [id number] Name: OLGA DONALDSON Rep #: [id number] : 1945 73 From: Connor Skaggs DO PCP: Ramone Smiley MD Status: ADM IN - Discharge Diagnoses Current Active Problems: Current Active and Chronic Problems (Last Reviewed 08/14/18 @ 17:39 by Connor Skaggs DO) Acute renal failure (Acute) Chronic renal failure, stage 3 (moderate) (Chronic) Microcytic anemia (Chronic) Urine retention (Chronic) Hyponatremia (Acute) Aortic stenosis (Chronic) valve area in 2015 was 1.7cm2 Anemia (Acute) You will use the following diet at home:: Calorie/Carbohydrate Controlled (specify 1200, 1400, etc) Your food should be the consistency of: Regular Your liquids should be the consistency of: Regular/Thin Discharge Activity: Return to Normal Activity Call your doctor if you observe: Fever of 101 or Higher, Inability to have a bowel movement, Shortness of breath, Dizziness, Fainting spells, Swelling in the ankles, Chest pain, Uncontrolled pain Instructions: Treating Constipation Additional Instructions: You had a polyp when Dr. Umaña did your colonoscopy and the pathology report is still pending. You should see Dr. Umaña in the office in 7-10 days to go over the path report. NO MORE RAW RICE. You can eat cooked rice.....1/2 cup at a time. Rice will make your blood sugar go up so no more than 1/2 giovani at a time. I am placing you on Miralax and senna twice a day to help keep your bowel movements regular. I gave you a lot of iron intravenously in the hospital and I want you to stop the oral iron tablets you were taking because they cause severe constipation. Make sure to drink at least 5 8 oz glasses of water a day. Home Health will follow up with you at home for care of the mccall catheter and also to help with your medications and the diabetic diet. The cyber defense forensics analyst's here at the hospital have a program for managing diet in diabetics. It is an excellent program and they can help you with your food choices. Allergies/Adverse Reactions: Allergies amoxicillin Allergy (Verified 08/14/18 13:44) YEAST INFECTION cephalexin monohydrate [From Keflex] Allergy (Verified 08/14/18 13:44) Rash clopidogrel bisulfate [From Plavix] Allergy (Verified 08/14/18 13:44) Other cloth tap Allergy (Uncoded 08/14/18 13:44) Other Medications to take at Discharge Lisinopril [Zestril] 40 mg PO BID 12/25/14 Aspirin [Aspirin, Baby] 81 mg PO DAILY@0800 01/21/16 Astepro 1 - 2 sprays NASAL BID 01/21/16 Sitagliptin Phosphate [Januvia] 50 mg PO DAILY 01/21/16 budesonide-formoterol HFA 160 mcg-4.5 mcg/actuation aerosol inhaler 2 puff INHALATION DAILY g 01/12/18 sodium chloride 0.65 % nasal spray aerosol 1 spray INTRANASAL Q2H PRN PRN 01/12/18 Albuterol Inhaler [Ventolin Hfa] 2 puff INHALATION Q4H PRN PRN 08/16/18 Bisacodyl [Dulcolax] 5 mg PO DAILY PRN 08/16/18 Calcium Carbonate 600 mg PO DAILY 08/16/18 Cod Liver Oil PO BREAKFAST 08/16/18 Diltiazem HCl [Cardizem LA] 180 mg PO DAILY 08/16/18 Ferrous Gluconate 325 mg PO BID 08/16/18 Lubiprostone [Amitiza] 24 mcg PO BIDCM 08/16/18 Magnesium Oxide [Mag-Ox 400] 400 mg PO BIDCM 08/16/18 Metoprolol Tartrate [Lopressor (beta jefe)] 25 mg PO BID 08/16/18 Multivitamins,Therapeutic [Multivitamin] 1 tablet PO DAILY 08/16/18 Potassium Citrate [Potassium Citrate ER] 5 meq PO BID 08/16/18 Pravastatin Sodium 20 mg PO QHS 08/16/18 Psyllium [Metamucil] 1 packet PO TID 08/16/18 proMETHazine tablet [Phenergan tablet] 12.5 mg PO Q8H PRN PRN 08/16/18 Ascorbic Acid [Vitamin C] 500 mg PO BID #60 capsule 08/20/18 Insulin Detemir [Levemir FlexPen] 25 units SC BID #0 08/20/18 Pantoprazole Sodium [Protonix] 40 mg PO DAILY #30 tablet 08/20/18 Polyethylene Glycol 3350 [Miralax] 17 gm PO BID #60 packet 08/20/18 Sennosides/Docusate Sodium [Senna-Docusate Sodium Tablet] 1 each PO BID #60 tablet 08/20/18 Sitagliptin Phosphate [Januvia] 50 mg PO DAILY #30 tablet 08/20/18 Sucralfate [Carafate] 1 gm PO 1HR_ACHS #120 tablet 08/20/18 The following prescriptions were given: Pantoprazole Sodium [Protonix] 40 mg PO DAILY #30 tablet Sitagliptin Phosphate [Januvia] 50 mg PO DAILY #30 tablet Sucralfate [Carafate] 1 gm PO 1HR_ACHS #120 tablet Ascorbic Acid [Vitamin C] 500 mg PO BID #60 capsule Polyethylene Glycol 3350 [Miralax] 17 gm PO BID #60 packet Sennosides/Docusate Sodium [Senna-Docusate Sodium Tablet] 1 each PO BID #60 tablet Primary Care Physician: Ramone Smiley MD [Primary Care Provider] - Please follow up with your Primary Care Physician in: 2-3 weeks Test Results: Test results from this visit will be discussed in further detail at your follow-up appointment, if applicable. Please Follow Up With: Tomasz Umaña MD When: 7-10 days Proposed Discharge Date: 08/20/18 08/20/18 1308 <Electronically signed by Connor Skaggs DO> Date Connor Skaggs DO CC: Tomasz Umaña MD; Ramone Smiley MD Signed BEDSIDE GLUCOSE Collected: 08/20/2018 Status: F Source: [facility] 11:24 AM [facility] REPOSITORY TYPE CODE TESTS RESULT OUT OF REFERENCE UNITS RANGE LAB L501.080 70-110 mg/dL High BEDSIDE GLU 210 Result Comment: MANAGEMENT OF PATIENT CARE PER NURSING PROTOCOL Performed By: #### L501.080 #### [facility] Point [facility] [address] [place], [place] [id number] BEDSIDE GLUCOSE Collected: 08/20/2018 Status: F Source: [place] 7:57 AM [facility] REPOSITORY TYPE CODE TESTS RESULT OUT OF REFERENCE UNITS RANGE LAB L501.080 70-110 mg/dL High BEDSIDE GLU 171 Result Comment: MANAGEMENT OF PATIENT CARE PER NURSING PROTOCOL Performed By: #### L501.080 #### [facility] Point of Care [address] [place] [address] BEDSIDE GLUCOSE Collected: 08/19/2018 Status: F Source: [place] 8:58 PM [facility] REPOSITORY TYPE CODE TESTS RESULT OUT OF REFERENCE UNITS RANGE LAB L501.080 70-110 mg/dL High BEDSIDE GLU 245 Result Comment: MANAGEMENT OF PATIENT CARE PER NURSING PROTOCOL Performed By: #### L501.080 #### [facility] Point of Care [address] [place] [address] BEDSIDE GLUCOSE Collected: 08/19/2018 Status: F Source: PERU 4:00 PM [facility] REPOSITORY TYPE CODE TESTS RESULT OUT OF REFERENCE UNITS RANGE LAB L501.080 70-110 mg/dL High BEDSIDE GLU 192 Result Comment: MANAGEMENT OF PATIENT CARE PER NURSING PROTOCOL Performed By: #### L501.080 #### [facility] Point of Care [address] [place] [place] [address] BEDSIDE GLUCOSE Collected: 08/19/2018 Status: F Source: PERU 12:11 PM [facility] REPOSITORY TYPE CODE TESTS RESULT OUT OF RANGE REFERENCE UNITS LAB L501.080 70-110 mg/dL Normal BEDSIDE GLU 95 Result Comment: MANAGEMENT OF PATIENT CARE PER NURSING PROTOCOL Performed By: #### L501.080 #### [facility] Point of Care [address] [place] [address] OPERATIVE REPORT - Observed: 08/19/2018 Status: F Source: [facility]U ENDOSCOPY 11:12 AM [facility] Medical Records Department [address] [place] [address] Operative Report - Endoscopy MR#: [id number] Acct: [id number] Name: OLGA DONALDSON Rep #: [id number] : 1945 73 From: Tomasz Umaña MD PCP: Ramone Smiley MD Status: ADM IN Patient Name: Olga Donaldson Procedure Date: 08/19/2018 9:58 AM Date of : 1945 Age: 73 Procedure: Colonoscopy Indications: Iron deficiency anemia Providers: Tomasz Umaña MD Referring MD: Connor Skaggs Medicines: Monitored Anesthesia Care Patient Profile: This is a 73 year old female. Refer to note in patient chart for documentation of history and physical. Last Colonoscopy: within the past 3 years. Complications: No immediate complications. Estimated blood loss: Minimal. Procedure: Pre-Anesthesia Assessment: - Prior to the procedure, a History and Physical was performed, and patient medications and allergies were reviewed. The patient's tolerance of previous anesthesia was also reviewed. The risks and benefits of the procedure and the sedation options and risks were discussed with the patient. All questions were answered, and informed consent was obtained. Prior Anticoagulants: The patient has taken no previous anticoagulant or antiplatelet agents. After reviewing the risks and benefits, the patient was deemed in satisfactory condition to undergo the procedure. After I obtained informed consent, the scope was passed under direct vision. Throughout the procedure, the patient's blood pressure, pulse, and oxygen saturations were monitored continuously. The colonoscope was introduced through the anus and advanced to the cecum, identified by appendiceal orifice and ileocecal valve. The colonoscopy was extremely difficult due to a redundant colon and significant looping. Successful completion of the procedure was aided by applying abdominal pressure. The patient tolerated the procedure well. The quality of the bowel preparation was good. Scope In: 10:00:05 AM Scope Withdrawal Time 0 hours 11 minutes 10 seconds Scope Out: 11:04:13 AM Total Procedure Duration Time 1 hour 4 minutes 8 seconds Findings: A polyp was found in the cecum. The polyp was semi-pedunculated. The polyp was removed with a hot snare. Resection and retrieval were complete. The exam was otherwise without abnormality on direct and retroflexion views. Impression: - One polyp in the cecum, removed with a hot snare. Resected and retrieved. - The examination was otherwise normal on direct and retroflexion views. Recommendation: - Patient has a contact number available for emergencies. The signs and symptoms of potential delayed complications were discussed with the patient. Return to normal activities tomorrow. Written discharge instructions were provided to the patient. - Resume regular diet. - Continue present medications. - Await pathology results. - Repeat colonoscopy for surveillance based on pathology results. Procedure Code(s): --- Professional --- 39244, Colonoscopy, flexible; with removal of tumor(s), polyp(s), or other lesion(s) by snare technique Diagnosis Code(s): --- Professional --- D12.0, Benign neoplasm of cecum D50.9, Iron deficiency anemia, unspecified CPT copyright 2017 [employer]. All rights reserved. The codes documented in this report are preliminary and upon spanish lecturer review may be revised to meet current compliance requirements. Tomasz Umaña MD 08/19/2018 11:11:47 AM This report has been signed electronically. Number of Addenda: 0 Note Initiated On: 08/19/2018 9:58 AM 08/19/18 1111 Date Tomasz Umaña MD Cosigner Signature: Date (if indicated) CC: Tomasz Umaña MD; Shakira Skaggs; Ramone Smiley MD Date Dictated: 08/19/18 0958 Date Transcribed: Steam Trap Man: WNEDY Signed OPERATIVE REPORT - Observed: 08/19/2018 Status: F Source: PERU ENDOSCOPY 11:10 AM [facility] Medical Records Department [address] [place] [address] Operative Report - Endoscopy MR#: [id number] Acct: [id number] Name: OLGA DONALDSON Rep #: [id number] : 1945 73 From: Tomasz Umaña MD PCP: Ramone Smiley MD Status: ADM IN Patient Name: Olga Donaldson Procedure Date: 08/19/2018 8:34 AM Date of : 1945 Age: 73 Procedure: Upper GI endoscopy Indications: Iron deficiency anemia Providers: Tomasz Umaña MD Referring MD: Connor Skaggs Medicines: Monitored Anesthesia Care Patient Profile: This is a 73 year old female. Refer to note in patient chart for documentation of history and physical. Complications: No immediate complications. Estimated blood loss: Minimal. Procedure: Pre-Anesthesia Assessment: - Prior to the procedure, a History and Physical was performed, and patient medications and allergies were reviewed. The patient's tolerance of previous anesthesia was also reviewed. The risks and benefits of the procedure and the sedation options and risks were discussed with the patient. All questions were answered, and informed consent was obtained. Prior Anticoagulants: The patient has taken no previous anticoagulant or antiplatelet agents. After reviewing the risks and benefits, the patient was deemed in satisfactory condition to undergo the procedure. After obtaining informed consent, the endoscope was passed under direct vision. Throughout the procedure, the patient's blood pressure, pulse, and oxygen saturations were monitored continuously. The gastroscope was introduced through the mouth, and advanced to the second part of duodenum. The upper GI endoscopy was accomplished without difficulty. The patient tolerated the procedure well. Scope In: 9:52:00 AM Scope Out: 9:56:43 AM Total Procedure Duration Time 0 hours 4 minutes 43 seconds Findings: Localized moderately congested mucosa was found in the gastric antrum. Biopsy with a hot snare on the lesser curvature of the gastric antrum was performed for histology. The exam was otherwise without abnormality. Impression: - Congestive gastropathy. - The examination was otherwise normal. - Biopsy was performed on the lesser curvature of the gastric antrum. Recommendation: - Await pathology results. - Resume previous diet. - Continue present medications. Procedure Code(s): --- Professional --- 85368, Esophagogastroduodenoscopy, flexible, transoral; with removal of tumor(s), polyp(s), or other lesion(s) by snare technique Diagnosis Code(s): --- Professional --- K31.89, Other diseases of stomach and duodenum D50.9, Iron deficiency anemia, unspecified CPT copyright 2017 [employer]. All rights reserved. The codes documented in this report are preliminary and upon spanish lecturer review may be revised to meet current compliance requirements. Tomasz Umaña MD 08/19/2018 11:09:38 AM This report has been signed electronically. Number of Addenda: 0 Note Initiated On: 08/19/2018 8:34 AM 08/19/18 1109 Date Tomasz Umaña MD Cosigner Signature: Date (if indicated) CC: Tomasz Umaña MD; Shakira Skaggs; Ramone Smiley MD Date Dictated: 08/19/18 0834 Date Transcribed: Steam Trap Man: WENDY Signed GASTRIC BIOPSY Observed: 08/19/2018 Status: F Source: [facility] 9:50 AM [facility] REPOSITORY Patient: OLGA DONALDSON : 1945 (73/F) Acct Num: [id number] Phys: GilesShakira Unit Num: [id number] Loc: MS3 [id number] Specimen: [id number] Received: 08/19/18 - 1403 Spec Type: Gastric Bx TISSUES 1 TISSUES: A. Gastric mucous membrane Cecum, NOS COMMENT Immunohistochemistry for Helicobacter pylori can be performed if clinically indicated. Please notify the Laboratory if it is needed. GROSS DESCRIPTION A - Received in fixative is one container labeled with the patient's name and designated antral lesion. The specimen consists of multiple irregular fragments of light garcía soft tissue that in aggregate measure 0.6 x 0.5 x 0.1 cm. The specimen is totally submitted in one cassette. B - Received in fixative is one container labeled with the patient's name and designated cecal polyp. The specimen consists of a garcía- pink polyp measuring 1 x 0.7 x 0.3 cm. Also present in the container are multiple fragments of garcía soft tissue mixed with fecal material measuring in aggregate 1.5 x 0.1 x 0.1 cm. The specimen is totally submitted in one cassette. / SJ:raimundo 08/19/18 TC:1 CPT: 85542 x2 HEADER OPERATION: Colonoscopy, EGD ([facility] [place]) PRE-OP DIAGNOSIS: Iron deficiency anemia TISSUE SUBMITTED: A - Antral lesion, B - Cecal polyp MICROSCOPIC DESCRIPTION Slides are reviewed. MICROSCOPIC DIAGNOSIS A. Antral lesion, biopsy: A fragment of gastric mucosa with extensive congestion and reactive fibrosis. See comment. B. Cecal polyp, biopsy: Tubular adenoma. TANYA:raimundo 08/20/18 Signed Roberto Robins MD 08/20/18 <signature on file> Performed By: #### PGASB #### [facility] [address], [address] BEDSIDE GLUCOSE Collected: 08/19/2018 Status: F Source: JAQUELIN 8:15 AM [facility] REPOSITORY TYPE CODE TESTS RESULT OUT OF RANGE REFERENCE UNITS LAB L501.080 70-110 mg/dL Normal BEDSIDE GLU 99 Result Comment: MANAGEMENT OF PATIENT CARE PER NURSING PROTOCOL Performed By: #### L501.080 #### [facility] Point of Care [address] [address] BASIC METABOLIC Collected: 08/19/2018 Status: F Source: [facility] PROFILE (BMP) 6:46 AM [facility] REPOSITORY TYPE CODE TESTS RESULT OUT OF RANGE REFERENCE UNITS LAB L501.0100 74-106 mg/dL Normal GLU 103 Result Comment: Fasting Glucose result from 100 to 125 mg/dL suggests IMPAIRED HOMEOSTASIS per A.D.A. criteria. Please note revised GLUCOSE reference range effective 2017. LAB L501.1000 7-18 mg/dL Low BUN 3 LAB L501.1100 0.55-1.02 mg/dL Normal CREAT,SERUM 0.73 Result Comment: The validity of the calculated GFR AND GFRAA in patients over 70 years has not been determined. Clinical correlation is essential. LAB L501.1110 >60 mL/min Normal EST GFR 83 Result Comment: Non- GFR Calc LAB L501.1115 >60 mL/min Normal EST GFR - AA 100 Result Comment: GFR Calc LAB L501.1255 ml/min Normal Estimated CRCL 40.83 LAB L501.1300 10-20 RATIO Low BUN/CRE 4.1 LAB L501.2200 8.5-10 mg/dL Normal .1 CA 8.9 LAB L501.5300 136-14 mmol/L Normal 5 NA 142 LAB L501.5600 3.5-5. mmol/L Normal 1 K 3.7 LAB L501.5900 98-107 mmol/L High CL 109 LAB L501.6100 21.0-3 mmol/L Normal 2.0 CO2 24.0 LAB L501.6200 5-15 Normal GAP 9 Performed By: #### L500.2500, L501.2300, L501.5200 #### [facility] [address] [place], [address] PHOSPHORUS Collected: 08/19/2018 Status: F Source: PERU 6:46 AM [facility] REPOSITORY TYPE CODE TESTS RESULT OUT OF RANGE REFERENCE UNITS LAB L501.2300 2.5-4.9 mg/dL Normal PHOS 2.5 Performed By: #### L500.2500, L501.2300, L501.5200 #### [facility] [address] [place], [address] MAGNESIUM Collected: 08/19/2018 Status: F Source: PERU 6:46 AM [facility] REPOSITORY TYPE CODE TESTS RESULT OUT OF RANGE REFERENCE UNITS LAB L501.5200 1.6-2.6 mg/dL Normal MG 1.9 Performed By: #### L500.2500, L501.2300, L501.5200 #### [facility] [address] [place], [address] CBC W/DIFF, AUTOMATED Collected: 08/19/2018 Status: F Source: PERU 6:46 AM [facility] REPOSITORY TYPE CODE TESTS RESULT OUT OF RANGE REFERENCE UNITS LAB L100.1000 4.4-11.0 K/mm3 Normal WBC 7.9 LAB L100.1200 4.2-5.4 M/mm3 Normal RBC 4.32 LAB L100.1300 12.0-15.0 g/dl Low HGB 8.9 LAB L100.1400 37-47 % Low HCT 29.8 LAB L100.1500 81-99 fL Low MCV 69.0 LAB L100.1600 27.0-32.0 pg Low MCH 20.6 LAB L100.1700 32-36 g/gl Low MCHC 29.9 LAB L100.1810 11.6-14.6 % High RDW CV 25.4 LAB L100.1820 35.1-43.9 fl High RDW SD 62.8 LAB L100.1900 150-450 K/mm3 Normal PLT 305 LAB L100.2000 6.2-12.0 fl Normal MPV 9.1 LAB L100.2100 47-70 % Normal NEUT% 62.4 LAB L100.2200 19-41 % Normal LY% 26.1 LAB L100.2300 0-10 % Normal MONO% 6.6 LAB L100.2400 0-5 % Normal EO% 4.3 LAB L100.2500 0-1 % Normal BASO% 0.6 LAB L100.2550 0.0-0.9 % Normal IM GRAN % 0.000 Result Comment: IG% - Immature Granulocytes (promyelocytes, myelocytes and metamyelocytes) > 1% indicates that a LEFT SHIFT is Present. LAB L100.2620 2.0-7.7 X10 3/uL Absolute Neut Normal 4.9 LAB L100.2720 0.83-4.51 X10 3/ul Absolute Lymph Normal 2.07 LAB L100.7300 ANISO Normal 2+ LAB L100.7500 POLYCHROMASIA Normal RARE LAB L100.7600 HYPOCHROMASIA Normal 1+ LAB L100.7700 MICROCYTES Normal 3+ Performed By: #### L100.0100 #### [facility] [address] [facility] [place], [address] BEDSIDE GLUCOSE Collected: 08/19/2018 Status: F Source: [place] 5:51 AM [facility] REPOSITORY TYPE CODE TESTS RESULT OUT OF REFERENCE UNITS RANGE LAB L501.080 70-110 mg/dL High BEDSIDE GLU 133 Result Comment: MANAGEMENT OF PATIENT CARE PER NURSING PROTOCOL Performed By: #### L501.080 #### [facility] Point of Care [address] [facility] [place] [address] BEDSIDE GLUCOSE Collected: 08/19/2018 Status: F Source: [place] 5:16 AM [facility] REPOSITORY TYPE CODE TESTS RESULT OUT OF REFERENCE UNITS RANGE LAB L501.080 70-110 mg/dL Low BEDSIDE GLU 60 Result Comment: MANAGEMENT OF PATIENT CARE PER NURSING PROTOCOL Performed By: #### L501.080 #### [facility] Point of Care [address] [facility] [place] [address] BEDSIDE GLUCOSE Collected: 08/18/2018 Status: F Source: JAQUELIN 9:09 PM [facility] REPOSITORY TYPE CODE TESTS RESULT OUT OF RANGE REFERENCE UNITS LAB L501.080 70-110 mg/dL Normal BEDSIDE GLU 108 Result Comment: MANAGEMENT OF PATIENT CARE PER NURSING PROTOCOL Performed By: #### L501.080 #### [facility] Point of Care [address] [place] [address] BEDSIDE GLUCOSE Collected: 08/18/2018 Status: F Source: JAQUELIN 4:42 PM [facility] REPOSITORY TYPE CODE TESTS RESULT OUT OF REFERENCE UNITS RANGE LAB L501.080 70-110 mg/dL High BEDSIDE GLU 130 Result Comment: MANAGEMENT OF PATIENT CARE PER NURSING PROTOCOL Performed By: #### L501.080 #### [facility] Point of Care [address] [place] [address] BEDSIDE GLUCOSE Collected: 08/18/2018 Status: F Source: JAQUELIN 11:06 AM [facility] REPOSITORY TYPE CODE TESTS RESULT OUT OF REFERENCE UNITS RANGE LAB L501.080 70-110 mg/dL High BEDSIDE GLU 133 Result Comment: MANAGEMENT OF PATIENT CARE PER NURSING PROTOCOL Performed By: #### L501.080 #### [facility] Point of Care [address] [place] [address] BEDSIDE GLUCOSE Collected: 08/18/2018 Status: F Source: JAQUELIN 7:17 AM [facility] REPOSITORY TYPE CODE TESTS RESULT OUT OF REFERENCE UNITS RANGE LAB L501.080 70-110 mg/dL High BEDSIDE GLU 162 Result Comment: MANAGEMENT OF PATIENT CARE PER NURSING PROTOCOL Performed By: #### L501.080 #### [facility] Point of Care [address] [place] [address] BEDSIDE GLUCOSE Collected: 08/18/2018 Status: F Source: JAQUELIN 6:16 AM [facility] REPOSITORY TYPE CODE TESTS RESULT OUT OF REFERENCE UNITS RANGE LAB L501.080 70-110 mg/dL Low BEDSIDE GLU 68 Result Comment: MANAGEMENT OF PATIENT CARE PER NURSING PROTOCOL Performed By: #### L501.080 #### [facility] Point of Care [address] [place] [address] ABDOMEN SINGLE VIEW Observed: 08/18/2018 Status: F Source: JAQUELIN (PORTABLE) 12:00 AM [facility] REPOSITORY [facility] Imaging Services [address] [place] [place] [address] Abdomen Single View (Portable) MR#: [id number] Acct: [id number] Name: OLGA DONALDSON Rep #: [id number] : 1945 F 73 From: Kareem Ornelas PCP: Ramone Smiley MD Status: ADM IN Study: Abdomen Single View (Portable) Date of Exam: 08/18/18 Exam# [id number] Ordering Dr: Tomasz Umaña MD STUDY: X-RAY - ABDOMEN/PELVIS REASON FOR EXAM: Female, 73 years old. Constipation. TECHNIQUE: AP supine abdomen. COMPARISON: August 17, 2018. August 16, 2018. FINDINGS: Normal visualized lung bases. There is an unremarkable bowel gas pattern. Decrease stool in the colon particularly as compared to August 16, 2018. There is no demonstrated free abdominal air. The visualized liver, spleen and kidneys are grossly normal in size and morphology. Normal soft tissue structures. Multilevel degenerative changes of the lumbar spine. RAD/Abdomen Single View (Portable) IMPRESSION: Nonspecific bowel gas pattern without evidence of obstruction. Decreased stool in the colon as compared to August 16, 2018. Electronically Signed: Kareem Ornelas MD at 5:46 EST , Service support , CC: Tomasz Umaña MD; Ramone Smiley MD Steam Trap Man: Signed BEDSIDE GLUCOSE Collected: 08/17/2018 Status: F Source: JAQUELIN 9:01 PM [facility] REPOSITORY TYPE CODE TESTS RESULT OUT OF RANGE REFERENCE UNITS LAB L501.080 70-110 mg/dL Normal BEDSIDE GLU 81 Result Comment: MANAGEMENT OF PATIENT CARE PER NURSING PROTOCOL Performed By: #### L501.080 #### [facility] Point of Care [address] [place] [address] BEDSIDE GLUCOSE Collected: 08/17/2018 Status: F Source: JAQUELIN 4:42 PM [facility] REPOSITORY TYPE CODE TESTS RESULT OUT OF RANGE REFERENCE UNITS LAB L501.080 70-110 mg/dL Normal BEDSIDE GLU 79 Result Comment: MANAGEMENT OF PATIENT CARE PER NURSING PROTOCOL Performed By: #### L501.080 #### [facility] Point of Care [address] [place] [address] BEDSIDE GLUCOSE Collected: 08/17/2018 Status: F Source: JAQUELIN 11:34 AM [facility] REPOSITORY TYPE CODE TESTS RESULT OUT OF RANGE REFERENCE UNITS LAB L501.080 70-110 mg/dL Normal BEDSIDE GLU 101 Result Comment: MANAGEMENT OF PATIENT CARE PER NURSING PROTOCOL Performed By: #### L501.080 #### [facility] Point of Care [address] [place] [address] ABDOMEN SINGLE VIEW Observed: 08/17/2018 Status: F Source: JAQUELIN 7:47 AM [facility] REPOSITORY [facility] Imaging Services [address] [place] [address] Abdomen Single View MR#: [id number] Acct: [id number] Name: OLGA DONALDSON Rep #: [id number] : 1945 F 73 From: Robert Randall MD PCP: Ramone Smiley MD Status: ADM IN Study: Abdomen Single View Date of Exam: 08/17/18 Exam# [id number] Ordering Dr: Connor Skaggs DO STUDY: X-RAY - ABDOMEN/PELVIS REASON FOR EXAM: Female, 73 years old. Constipation. TECHNIQUE: Two AP supine views of the abdomen and pelvis. COMPARISON: Comparison is made with prior examination dated August 16, 2008. FINDINGS: Normal visualized lung bases. There is a moderate amount of colonic fecal material. This has improved as compared to prior study. The visualized liver, spleen and kidneys are grossly normal in size and morphology. There are calcified phleboliths in the pelvis. There are diffuse degenerative changes of the visualized lumbar spine. Degenerative changes of both hip joints. RAD/Abdomen Single View IMPRESSION: Moderate amount of residual fecal material in the colon although this has improved. Electronically Signed: Robert Randall MD at 14:46 EST Tel [phone], Service support , CC: Shakira Skaggs; Ramone Smiley MD Steam Trap Man: Signed CBC-COMPLETE BLOOD CNT Collected: 08/17/2018 Status: F Source: JAQUELIN NO DIFF 6:57 AM [facility] REPOSITORY TYPE CODE TESTS RESULT OUT OF RANGE REFERENCE UNITS LAB L100.1000 4.4-11.0 K/mm3 Normal WBC 9.3 LAB L100.1200 4.2-5.4 M/mm3 Normal RBC 4.82 LAB L100.1300 12.0-15.0 g/dl Low HGB 10.0 LAB L100.1400 37-47 % Low HCT 32.9 LAB L100.1500 81-99 fL Low MCV 68.3 LAB L100.1600 27.0-32.0 pg Low MCH 20.7 LAB L100.1700 32-36 g/gl Low MCHC 30.4 LAB L100.1810 11.6-14.6 % High RDW CV 25.1 LAB L100.1820 35.1-43.9 fl High RDW SD 61.1 LAB L100.1900 150-450 K/mm3 Normal PLT 333 LAB L100.2000 6.2-12.0 fl Normal MPV 9.2 Performed By: #### L100.0500, L100.4500 #### [facility] [address] [place], [place], [address] DIFFERENTIAL COMMENT Collected: 08/17/2018 Status: F Source: JAQUELIN 6:57 AM [facility] REPOSITORY TYPE CODE TESTS RESULT OUT OF RANGE REFERENCE UNITS LAB L100.4500 Normal SMEAR COMMENT COMMENT Result Comment: SLIDE SCANNED - 1+ ANISO, 1+ HYPOCHROMIA. Performed By: #### L100.0500, L100.4500 #### [facility] [address] [place], [place], [address] BASIC METABOLIC Collected: 08/17/2018 Status: F Source: JAQUELIN PROFILE (BMP) 6:57 AM [facility] REPOSITORY TYPE CODE TESTS RESULT OUT OF RANGE REFERENCE UNITS LAB L501.0100 74-106 mg/dL Normal GLU 95 Result Comment: Please note revised GLUCOSE reference range effective 2017. LAB L501.1000 7-18 mg/dL Normal BUN 7 LAB L501.1100 0.55-1.02 mg/dL Normal CREAT,SERUM 0.69 Result Comment: The validity of the calculated GFR AND GFRAA in patients over 70 years has not been determined. Clinical correlation is essential. LAB L501.1110 >60 mL/min Normal EST GFR 89 Result Comment: Non- GFR Calc LAB L501.1115 >60 mL/min Normal EST GFR - AA 107 Result Comment: GFR Calc LAB L501.1255 ml/min Normal Estimated CRCL 40.83 LAB L501.1300 10-20 RATIO Normal BUN/CRE 10.2 LAB L501.2200 8.5-10 mg/dL Normal .1 CA 9.3 LAB L501.5300 136-14 mmol/L Normal 5 NA 138 LAB L501.5600 3.5-5. mmol/L Normal 1 K 4.0 LAB L501.5900 98-107 mmol/L Normal CL 102 LAB L501.6100 21.0-3 mmol/L Normal 2.0 CO2 28.0 LAB L501.6200 5-15 Normal GAP 8 Performed By: #### L500.2500 #### [facility] [address] [place], [place], [address] BEDSIDE GLUCOSE Collected: 08/17/2018 Status: F Source: JAQUELIN 6:23 AM [facility] REPOSITORY TYPE CODE TESTS RESULT OUT OF RANGE REFERENCE UNITS LAB L501.080 70-110 mg/dL Normal BEDSIDE GLU 83 Result Comment: MANAGEMENT OF PATIENT CARE PER NURSING PROTOCOL Performed By: #### L501.080 #### [facility] Point of Care [address] [place], [place] [address] BEDSIDE GLUCOSE Collected: 08/16/2018 Status: F Source: JAQUELIN 10:54 PM [facility] REPOSITORY TYPE CODE TESTS RESULT OUT OF REFERENCE UNITS RANGE LAB L501.080 70-110 mg/dL High BEDSIDE GLU 144 Result Comment: MANAGEMENT OF PATIENT CARE PER NURSING PROTOCOL Performed By: #### L501.080 #### [facility] Point of Care [address] [place] [address] BEDSIDE GLUCOSE Collected: 08/16/2018 Status: F Source: PERU 5:11 PM [facility] REPOSITORY TYPE CODE TESTS RESULT OUT OF REFERENCE UNITS RANGE LAB L501.080 70-110 mg/dL High BEDSIDE GLU 204 Result Comment: MANAGEMENT OF PATIENT CARE PER NURSING PROTOCOL Performed By: #### L501.080 #### [facility] Point of Care [address] [place] [address] ECHOCARDIOGRAM COMPLETE Observed: 08/16/2018 Status: F Source: PERU 1:55 PM [facility] REPOSITORY [facility] Cardiovascular Services [address] [place] [address] Echo Complete 08/16/18 1123 MR#: [id number] Acct: [id number] Name: OLGA DONALDSON Rep #: [id number] : 1945 73 From: Se Good MD Attending Dr: Shakira Skaggs Status: ADM IN Ordering Dr: Connor Skaggs DO Date: 08/14/18 [facility] [facility] Sex: F AA Admitted: 08/14/18 Reason For Study: murmur Procedure This was a 2D Doppler, Color Flow transthoracic echocardiogram. The study was technically difficult. Exam performed portable in patient room. Left Ventricle Normal LV size. Left ventricular systolic function is normal. The estimated ejection fraction is 60 %. Stage 1 diastolic dysfunction. No regional wall motion abnormalities noted. Right Ventricle Normal RV size. Normal systolic function. Atria The left atrium is mildly enlarged. Normal right atrium. Mitral Valve Normal mitral valve. Tricuspid Valve Normal tricuspid valve. Mild (1+) tricuspid valve insufficiency. Right ventricular systolic pressure estimated to be 19 mmHg. Aortic Valve Trisinus/trileaflet aortic valve. Mild focal aortic valve calcification. Peak aortic valve gradient 29 mmHg. Mean aortic valve gradient 16 mmHg. Mild aortic stenosis. Calculated aortic valve area (continuity equation) is 1.3 cm2. Mild (1+) eccentric aortic valve insufficiency. Pulmonic Valve Normal pulmonic valve. Great Vessels Normal aortic root. The pulmonary artery is normal size. Normal inferior vena cava. Pericardium/Pleural No pericardial effusion. MMode/2D Measurements AND Calculations LVIDd: 3.8 cm IVSd: 1.0 cm LVOT diam: 2.0 cm LVIDs: 2.5 cm LVPWd: 1.1 cm LVOT area: 3.3 cm2 RVDd: 3.1 cm FS: 33.8 % Ao root diam: 3.0 cm LAV(MOD-bp): 73.5 ml LA A4 area: 22.0 cm2 LAV(MOD-bp) Indexed: 40.5 ml/m2 LAV(MOD-sp2): 70.2 ml LAV(MOD-sp4): 74.5 ml LA dimension(2D): 4.2 cm RA A4 area: 12.1 cm2 Time Measurements MV dec time: 0.28 sec Doppler Measurements AND Calculations MV E max pino: 81.0 cm/sec Lat Peak E' Pino: 7.2 cm/sec Med Peak E' Pino: 5.9 cm/sec MV A max pino: 120.4 cm/sec E/E' lat: 11.2 E/E' med: 13.6 MV E/A: 0.67 Ao V2 max: 270.2 cm/sec AI max pino: 403.8 cm/sec LV V1 max: 109.6 cm/sec Ao max P.2 mmHg AI max P.3 mmHg LV V1 max P.8 mmHg Ao V2 mean: 191.3 cm/sec AI dec slope: 298.0 cm/sec2 LV V1 mean P.4 mmHg Ao mean P.0 mmHg AI P1/2t: 396.8 msec LV V1 mean: 72.8 cm/sec Ao V2 VTI: 63.4 cm LV V1 VTI: 24.9 cm LORNA(I,D): 1.3 cm2 LORNA(V,D): 1.3 cm2 SV(LVOT): 81.5 ml PA V2 max: 109.4 cm/sec TR max pino: 221.1 cm/sec TR max P.6 mmHg Interpretation Summary Normal LV size. Left ventricular systolic function is normal. The estimated ejection fraction is 60 %. Stage 1 diastolic dysfunction. Mild aortic stenosis. Calculated aortic valve area (continuity equation) is 1.3 cm2. Mild (1+) eccentric aortic valve insufficiency. Ordering Physician: Shakira Skaggs Referring Physician: Ramone Smiley Performed By: Margot Cleary, DALIA, RVT 08/16/18 4125 Date Se Good MD CC: Shakira Skaggs; Ramone Smiley MD Date Dictated: 08/16/18 1123 Date Transcribed: 08/16/18 1355 Steam Trap Man: Signed BEDSIDE GLUCOSE Collected: 08/16/2018 Status: F Source: PERU 11:43 AM [facility] REPOSITORY TYPE CODE TESTS RESULT OUT OF REFERENCE UNITS RANGE LAB L501.080 70-110 mg/dL High BEDSIDE GLU 398 Result Comment: MANAGEMENT OF PATIENT CARE PER NURSING PROTOCOL Performed By: #### L501.080 #### [facility] Point of Care [address] [place] [address] ABDOMEN SINGLE VIEW Observed: 08/16/2018 Status: F Source: PERU 8:12 AM [facility] REPOSITORY [facility] Imaging Services [address] [place] [address] Abdomen Single View MR#: [id number] Acct: [id number] Name: OLGA DONALDSON Rep #: [id number] : 1945 F 73 From: Robert Randall MD PCP: Ramone Smiley MD Status: ADM IN Study: Abdomen Single View Date of Exam: 08/16/18 Exam# [id number] Ordering Dr: Tomasz Umaña MD STUDY: X-RAY - ABDOMEN/PELVIS REASON FOR EXAM: Female, 73 years old. Constipation. TECHNIQUE: Two AP supine views of the abdomen and pelvis. COMPARISON: Comparison is made with prior study dated May 07, 2018. FINDINGS: Normal visualized lung bases. There is an abundance of fecal material throughout the colon. The visualized liver, spleen and kidneys are grossly normal in size and morphology. Normal soft tissue structures. Normal visualized osseous structures. RAD/Abdomen Single View IMPRESSION: Large amount of fecal material is seen in the colon. Electronically Signed: Robert Randall MD at 14:17 EST Tel [phone], Service support , CC: Tomasz Umaña MD; Ramone Smiley MD Steam Trap Man: Signed CBC W/DIFF, AUTOMATED Collected: 08/16/2018 Status: F Source: JAQUELIN 6:46 AM [facility] REPOSITORY TYPE CODE TESTS RESULT OUT OF RANGE REFERENCE UNITS LAB L100.1000 4.4-11.0 K/mm3 Normal WBC 9.0 LAB L100.1200 4.2-5.4 M/mm3 Normal RBC 4.43 LAB L100.1300 12.0-15.0 g/dl Low HGB 9.2 LAB L100.1400 37-47 % Low HCT 29.9 LAB L100.1500 81-99 fL Low MCV 67.5 LAB L100.1600 27.0-32.0 pg Low MCH 20.8 LAB L100.1700 32-36 g/gl Low MCHC 30.8 LAB L100.1810 11.6-14.6 % High RDW CV 24.1 LAB L100.1820 35.1-43.9 fl High RDW SD 58.2 LAB L100.1900 150-450 K/mm3 Normal PLT 311 LAB L100.2000 6.2-12.0 fl Normal MPV 9.5 LAB L100.2100 47-70 % Normal NEUT% 57.5 LAB L100.2200 19-41 % Normal LY% 30.6 LAB L100.2300 0-10 % Normal MONO% 8.1 LAB L100.2400 0-5 % Normal EO% 3.2 LAB L100.2500 0-1 % Normal BASO% 0.3 LAB L100.2550 0.0-0.9 % Normal IM GRAN % 0.300 Result Comment: IG% - Immature Granulocytes (promyelocytes, myelocytes and metamyelocytes) > 1% indicates that a LEFT SHIFT is Present. LAB L100.2620 2.0-7.7 X10 3/uL Absolute Neut Normal 5.2 LAB L100.2720 0.83-4.51 X10 3/ul Absolute Lymph Normal 2.75 LAB L100.5500 ADEQ PLT EST Normal ADEQUATE LAB L100.7300 ANISO Normal 2+ LAB L100.7500 POLYCHROMASIA Normal 1+ LAB L100.7600 HYPOCHROMASIA Normal 2+ LAB L100.7700 MICROCYTES Normal 2+ LAB L100.7800 MACROCYTE Normal RARE Performed By: #### L100.0100 #### [facility] [address] [place], [place], [address] BASIC METABOLIC Collected: 08/16/2018 Status: F Source: PERU PROFILE (BMP) 6:46 AM [facility] REPOSITORY TYPE CODE TESTS RESULT OUT OF RANGE REFERENCE UNITS LAB L501.0100 74-106 mg/dL High GLU 209 Result Comment: Glucose result greater than or equal to 200 mg/dL suggests DIABETES MELLITUS per A.D.A. criteria. Please note revised GLUCOSE reference range effective 2017. LAB L501.1000 7-18 mg/dL Normal BUN 13 LAB L501.1100 0.55-1.02 mg/dL Normal CREAT,SERUM 0.80 Result Comment: The validity of the calculated GFR AND GFRAA in patients over 70 years has not been determined. Clinical correlation is essential. LAB L501.1110 >60 mL/min Normal EST GFR 74 Result Comment: Non- GFR Calc LAB L501.1115 >60 mL/min Normal EST GFR - AA 90 Result Comment: GFR Calc LAB L501.1255 ml/min Normal Estimated CRCL 51.04 LAB L501.1300 10-20 RATIO Normal BUN/CRE 16.2 LAB L501.2200 8.5-10 mg/dL Normal .1 CA 8.8 LAB L501.5300 136-14 mmol/L Normal 5 NA 136 LAB L501.5600 3.5-5. mmol/L Normal 1 K 4.7 LAB L501.5900 98-107 mmol/L Normal CL 103 LAB L501.6100 21.0-3 mmol/L Normal 2.0 CO2 26.0 LAB L501.6200 5-15 Normal GAP 7 Performed By: #### L500.2500, L501.2300 #### [facility] [address] [place], [address] PHOSPHORUS Collected: 08/16/2018 Status: F Source: JAQUELIN 6:46 AM [facility] REPOSITORY TYPE CODE TESTS RESULT OUT OF RANGE REFERENCE UNITS LAB L501.2300 2.5-4.9 mg/dL Normal PHOS 2.6 Performed By: #### L500.2500, L501.2300 #### [facility] [address] [place], [address] CORTISOL SERUM Collected: 08/16/2018 Status: F Source: JAQUELIN 6:46 AM [facility] REPOSITORY TYPE CODE TESTS RESULT OUT OF RANGE REFERENCE UNITS LAB L509.6000 3.09-22.40 ug/dL Normal CORTISOL 11.00 Result Comment: Adult (AM) 4.30 - 22.40 ug/dL Adult (PM) 3.09 - 16.66 ug/dL Performed By: #### L509.6000 #### [facility] [address] [place], [address] THYROID ANTIBODIES Collected: 08/16/2018 Status: F Source: JAQUELIN 6:46 AM [facility] REPOSITORY TYPE CODE TESTS RESULT OUT OF RANGE REFERENCE UNITS LAB L3300.6900 0-34 IU/mL Normal TPO AB 12 6676 LAB L3300.7027 0.0-0.9 IU/mL Normal TG AB < 1.0 Result Comment: Thyroglobulin Antibody measured by Cierra Sharyn Methodology Performed at: - [facility] [address] [id number] Network Applications Specialist: Chavo Schafer PhD, Phone: [phone] Performed By: #### L3300.6750 #### [facility] (refer to report for specific site) refer to report for address and phone number BEDSIDE GLUCOSE Collected: 08/16/2018 Status: F Source: JAQUELIN 5:54 AM [facility] REPOSITORY TYPE CODE TESTS RESULT OUT OF REFERENCE UNITS RANGE LAB L501.080 70-110 mg/dL High BEDSIDE GLU 229 Result Comment: MANAGEMENT OF PATIENT CARE PER NURSING PROTOCOL Performed By: #### L501.080 #### [facility] Point of Care [address] [place] [address] HH, HEMOGLOBIN AND Collected: 08/16/2018 Status: F Source: JAQUELIN HEMATOCRIT 1:00 AM [facility] REPOSITORY TYPE CODE TESTS RESULT OUT OF RANGE REFERENCE UNITS LAB L100.1300 12.0-15.0 g/dl Low HGB 9.0 LAB L100.1400 37-47 % Low HCT 29.5 Performed By: #### L100.0600 #### [facility] [address] [place], [address] BEDSIDE GLUCOSE Collected: 08/15/2018 Status: F Source: JAQUELIN 11:54 PM [facility] REPOSITORY TYPE CODE TESTS RESULT OUT OF REFERENCE UNITS RANGE LAB L501.080 70-110 mg/dL High BEDSIDE GLU 168 Result Comment: MANAGEMENT OF PATIENT CARE PER NURSING PROTOCOL Performed By: #### L501.080 #### [facility] Point of Care [address] [place] [address] Observed: 08/15/2018 Status: F Source: JAQUELIN CULTURE, URINE 7:00 PM [facility] REPOSITORY Urine Culture Culture exhibits no growth. Performed By: #### M100.0650 #### [facility] [address] [place], [address] BEDSIDE GLUCOSE Collected: 08/15/2018 Status: F Source: JAQUELIN 4:50 PM [facility] REPOSITORY TYPE CODE TESTS RESULT OUT OF REFERENCE UNITS RANGE LAB L501.080 70-110 mg/dL High BEDSIDE GLU 153 Result Comment: MANAGEMENT OF PATIENT CARE PER NURSING PROTOCOL Performed By: #### L501.080 #### [facility] Point of Care [address] [place] [address] BEDSIDE GLUCOSE Collected: 08/15/2018 Status: F Source: JAQUELIN 12:48 PM [facility] REPOSITORY TYPE CODE TESTS RESULT OUT OF REFERENCE UNITS RANGE LAB L501.080 70-110 mg/dL High BEDSIDE GLU 274 Result Comment: MANAGEMENT OF PATIENT CARE PER NURSING PROTOCOL Performed By: #### L501.080 #### [facility] Point of Care [address] [place] [address] CONSULTATION Observed: 08/15/2018 Status: F Source: JAQUELIN 9:57 AM [facility] REPOSITORY [facility] Medical Records Department [address] [place] [address] Consultation 08/15/18 0954 MR#: [id number] Acct: [id number] Name: OLGA DONALDSON Rep #: [id number] : 1945 73 From: Tomasz Umaña MD PCP: Rmaone Smiley MD Status: ADM IN [id number] Problem List (1) Anemia Status: Acute Qualifiers: Anemia type: iron deficiency Iron deficiency anemia type: chronic blood loss Qualified Code(s): D50.0 - Iron deficiency anemia secondary to blood loss (chronic) (2) History of constipation Status: Chronic Reason for Consult Date of Consultation: 08/15/18 Reason for Consultation: Iron deficiency anemia History of Present Illness: The patient is a 73 year old F who was admitted for anemia. The patient had a hemoglobin of 6.6 and is currently getting transfused. The patient notes she had a colonoscopy 2 years ago and a polyp was fine. She does not note that an EGD was done at that time but she cannot remember. She says she is not having any gross blood in her stools but she has chronic constipation and this has been lifelong. She is not having any abdominal pain this morning. She is not having any nausea or vomiting. Past Medical History Past Medical History (Chronic Problems): Chronic Problems (Last Reviewed 08/14/18 @ 17:39 by Connor Skaggs DO) Chronic renal failure, stage 3 (moderate) (Chronic) Microcytic anemia (Chronic) Urine retention (Chronic) Aortic stenosis (Chronic) valve area in 2015 was 1.7cm2 COPD (chronic obstructive pulmonary disease) (Chronic) History of constipation (Chronic) Hx of venous thrombosis and embolism (Chronic) History of malignant neoplasm of breast (Chronic) Tobacco use (Chronic) Hypertension (Chronic) Type 2 diabetes mellitus (Chronic) Asthma (Chronic) Medical History: Medical History (Last Reviewed 08/14/18 @ 17:39 by Connor Skaggs DO) Anemia D64.9 Asthma J45.909 COPD (chronic obstructive pulmonary disease) J44.9 Carpal tunnel syndrome of right wrist G56.01 Cellulitis and abscess of finger, unspecified L03.019, L02.519 Chronic idiopathic constipation K59.04 Diabetes E11.9 GERD (gastroesophageal reflux disease) K21.9 Goiter, nontoxic, 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 Hypercholesteremia E78.00 Leg weakness, bilateral R29.898 Peripheral artery disease I73.9 Polypharmacy Z79.899 Pruritus L29.9 Retinopathy H35.00 Rhinitis J31.0 Strain of right rotator cuff capsule S46.011A Urinary retention with incomplete bladder emptying R33.9 Vitamin D deficiency E55.9 Hypertension I10 Allergies amoxicillin Allergy (Verified 08/14/18 13:44) YEAST INFECTION cephalexin monohydrate [From Keflex] Allergy (Verified 08/14/18 13:44) Rash clopidogrel bisulfate [From Plavix] Allergy (Verified 08/14/18 13:44) Other cloth tap Allergy (Uncoded 08/14/18 13:44) Other Home Medications: Ambulatory Orders Medication Instructions Recorded Coconut Oil/Beeswax/Safflower [Lip 90 gm TP DAILY 12/25/14 [employer]] Cod Liver Oil 1 ea PO DAILY 12/25/14 Lisinopril [Zestril] 40 mg PO DAILY 12/25/14 Surgical History: Surgical History (Last Reviewed 08/14/18 @ 17:39 by Connor Skaggs DO) History of Achilles tendon repair Z98.890 History of lumpectomy of left breast Z98.890 2004 Retinopathy H35.00 LASER SURGERY LEFT EYE 2005 Surgical History: mastectomy, - - colonoscopies in the past she does not think found anything significant. Psychiatric History: No pertinent psych hx TELLER VAULT History: No pertinent TELLER VAULT history Lives: Spouse/ Significant Other Smoking Status: Former smoker Tobacco Use: Non-smoker Alcohol: Rare Drugs: None - *Family History Maternal Family History: Family History (Last Reviewed 08/14/18 @ 17:39 by Connor Skaggs DO) Daughter Breast cancer Father Hypertension Sister Cancer Kidney disease Mother Pancreatic cancer History Items: Diabetes, Hypertension Paternal Family History: Family History (Last Reviewed 08/14/18 @ 17:39 by Connor Skaggs DO) Daughter Breast cancer Father Hypertension Sister Cancer Kidney disease Mother Pancreatic cancer History Items: Diabetes, Hypertension Review of Systems Constitutional: Denies: Anorexia, Chills HEENT: Denies: Difficulty Swallowing Cardiovascular: Denies: Chest Pain Respiratory: Denies: Cough Gastrointestinal: Reports: Constipation. Denies: Abdominal Pain, Hematemesis, Hematochezia, Nausea, Melena, Vomiting Genitourinary: Reports: Retention Skin: Denies: Jaundice Neurological: Denies: Balance problems Psychiatric: Denies: Anxiety Hematologic/ Lymphatic: Reports: Anemia Patient Problems: Active and Suspected Problems (Last Reviewed 08/14/18 @ 17:39 by Connor Skaggs DO) Acute renal failure (Acute) Hyponatremia (Acute) Anemia (Acute) - Physical Exam General: Alert, Oriented x3, Cooperative HEENT: Atraumatic Oral: Moist Mucosa Neck: No JVD Lungs: Normal air movement Cardiovascular: Regular rate, Regular Rhythm Abdomen: Soft, Non Tender, Non-Distended Extremities: No clubbing Skin: No rashes Musculoskeletal: No Muscle Wasting Neurological: Cranial nerves II-XII grossly intact Psych/Mental Status: Normal Affect Vital Signs Temp Pulse Resp BP Pulse Ox 98.5 F 90 16 106/35 L 99 08/15/18 07:51 08/15/18 07:51 08/15/18 07:51 08/15/18 07:51 08/15/18 07:51 Oxygen Delivery Method Room Air Weight: 151 lb 7.321 oz Body Mass Index (BMI) 26.8 Intake and Output for Last 24 Hours Intake Total 1536 / 1536 Balance 1536 / 1536 Microbiology Past 72 Hours 08/15/18 05:10 Stool Occult Blood (MAHESH) - Final Stool Occult Blood Positive Laboratory Tests Past 24 Hrs WBC RBC Hgb Hct MCV MCH MCHC WBC RBC Hgb 7.3 L 7.0 L Hct 26.2 L 24.6 L MCV MCH MCHC POC Glucose POC Glucose 109 283 H Clinical Impression(s) from Imaging Studies Abdomen/Pelvis CT 08/14/18 15:52 IMPRESSION: 1. No hydronephrosis. 2. Decompressed urinary bladder by Mccall catheter as compared to the prior study. Urinary bladder wall thickening cannot be excluded on this exam. 3. 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 Stercoral proctitis is possible. No pneumoperitoneum or ulceration. Increased since prior study. 4. Additional stable chronic changes, as above. Electronically Signed: Zechariah Redmond MD at 17:26 EST , Service support , Assessment/Plan All Active Problems (Last Reviewed 08/14/18 @ 17:39 by Connor Skaggs DO) Acute renal failure (Acute) Hyponatremia (Acute) Anemia (Acute) 73-year-old female with constipation and iron deficiency anemia 1. The patient has a very full colon on CAT scan. I will order a double dose of MiraLAX this morning and this evening and try to do a full bowel prep tomorrow with hopes of scoping Thursday or Thursday. I explained this to the patient and she is in agreement. Clear liquid diet while we are trying to clear her colon out. Transfuse as needed. 2. I explained endoscopy in detail to the patient. I explained the risks including but not limited to stroke or heart attack with anesthesia, perforation of the GI tract, bleeding, infection. I explained that any of these could necessitate further emergency surgery. The patient understands and all questions were answered sufficiently. The patient wishes to proceed with procedure. Tomasz Umaña MD Pager: [facility] [address] [place] [address], [address] [place] [address] Office: 08/15/18 0957 <Electronically signed by Tomasz Umaña MD> Date Tomasz Umaña MD Cosigner Signature (if applicable): Date CC: Tomasz Umaña MD; Shakira Skaggs; Ramone Smiley MD Signed CBC-COMPLETE BLOOD CNT Collected: 08/15/2018 Status: F Source: [facility] NO DIFF 6:03 AM [facility] REPOSITORY TYPE CODE TESTS RESULT OUT OF RANGE REFERENCE UNITS LAB L100.1000 4.4-11.0 K/mm3 Normal WBC 9.2 LAB L100.1200 4.2-5.4 M/mm3 Low RBC 3.77 LAB L100.1300 12.0-15.0 g/dl Low HGB 6.6 LAB L100.1400 37-47 % Low HCT 23.7 LAB L100.1500 81-99 fL Low MCV 62.9 LAB L100.1600 27.0-32.0 pg Low MCH 17.5 LAB L100.1700 32-36 g/gl Low MCHC 27.8 LAB L100.1810 11.6-14.6 % High RDW CV 21.3 LAB L100.1820 35.1-43.9 fl High RDW SD 46.5 LAB L100.1900 150-450 K/mm3 Normal PLT 392 LAB L100.2000 6.2-12.0 fl Normal MPV 10.1 Performed By: #### L100.0500, L100.4500 #### [facility] [address] [place], [place], [address] DIFFERENTIAL COMMENT Collected: 08/15/2018 Status: F Source: PERU 6:03 AM [facility] REPOSITORY TYPE CODE TESTS RESULT OUT OF RANGE REFERENCE UNITS LAB L100.4500 Normal SMEAR COMMENT SCAN Result Comment: ANISOCYTOSIS 1+ MICROCYTOSIS 1+ HYPOCHROMIA 2+ POLYCHROMASIA 1+ Performed By: #### L100.0500, L100.4500 #### [facility] [address] [place], [place], [address] COMPREHENSIVE METABOLIC Collected: 08/15/2018 Status: F Source: [facility] 6:03 AM [facility] REPOSITORY TYPE CODE TESTS RESULT OUT OF RANGE REFERENCE UNITS LAB L501.0100 74-106 mg/dL Normal GLU 99 Result Comment: Please note revised GLUCOSE reference range effective 2017. LAB L501.1000 7-18 mg/dL High BUN 23 LAB L501.1100 0.55-1.02 mg/dL Normal CREAT,SERUM 1.01 Result Comment: The validity of the calculated GFR AND GFRAA in patients over 70 years has not been determined. Clinical correlation is essential. LAB L501.1110 >60 mL/min Low EST GFR 57 Result Comment: Non- GFR Calc LAB L501.1115 >60 mL/min Normal EST GFR - AA 69 Result Comment: GFR Calc LAB L501.1255 ml/min Normal Estimated CRCL 40.42 LAB L501.1300 10-20 RATIO High BUN/CRE 22.8 LAB L501.1500 6.4-8. g/dL Normal 2 T PROT 6.8 LAB L501.1800 3.2-5. g/dL Low 0 ALB 2.4 LAB L501.1950 2.2-4. g/dL High 2 GLOB 4.4 LAB L501.2000 0.9-2. RATIO Low 4 A/G 0.5 LAB L501.2200 8.5-10 mg/dL Normal .1 CA 9.2 LAB L501.4100 15-37 U/L Normal AST 23 LAB L501.4305 45-117 U/L Normal ALK P 79 LAB L501.4405 13-56 U/L Normal ALT 33 LAB L501.4600 0.20-1 mg/dL Normal .00 T BILI 0.20 LAB L501.5300 136-14 mmol/L Low 5 NA 134 LAB L501.5600 3.5-5. mmol/L Normal 1 K 4.8 LAB L501.5900 98-107 mmol/L Normal CL 101 LAB L501.6100 21.0-3 mmol/L Normal 2.0 CO2 27.0 LAB L501.6200 5-15 Normal GAP 6 Performed By: #### L500.4050, L501.2300, L501.5200 #### [facility] [address] [facility] [place], [place], [id number] PHOSPHORUS Collected: 08/15/2018 Status: F Source: [facility] 6:03 AM [facility] REPOSITORY TYPE CODE TESTS RESULT OUT OF RANGE REFERENCE UNITS LAB L501.2300 2.5-4.9 mg/dL Low PHOS 2.3 Performed By: #### L500.4050, L501.2300, L501.5200 #### [facility] [address] [place], [place], [address] MAGNESIUM Collected: 08/15/2018 Status: F Source: [place] 6:03 AM [facility] REPOSITORY TYPE CODE TESTS RESULT OUT OF RANGE REFERENCE UNITS LAB L501.5200 1.6-2.6 mg/dL Normal MG 2.3 Performed By: #### L500.4050, L501.2300, L501.5200 #### [facility] [address] [place], [address] FREE T3 Collected: 08/15/2018 Status: F Source: PERU 6:03 AM [facility] REPOSITORY TYPE CODE TESTS RESULT OUT OF RANGE REFERENCE UNITS LAB L501.10747 2.18-3.98 pg/mL Normal FREE T3 3.1 Performed By: #### L501.06910, L501.9310 #### [facility] [address] [place], [address] T4 TOTAL, THYROXIN Collected: 08/15/2018 Status: F Source: PERU 6:03 AM [facility] REPOSITORY TYPE CODE TESTS RESULT OUT OF RANGE REFERENCE UNITS LAB L501.9310 4.8-13.9 ug/dL T4 Normal THYROXIN 8.4 Performed By: #### L501.15062, L501.9310 #### [facility] [address] [place], [address] BEDSIDE GLUCOSE Collected: 08/15/2018 Status: F Source: [facility] 5:33 AM [facility] REPOSITORY TYPE CODE TESTS RESULT OUT OF RANGE REFERENCE UNITS LAB L501.080 70-110 mg/dL Normal BEDSIDE GLU 109 Result Comment: MANAGEMENT OF PATIENT CARE PER NURSING PROTOCOL Performed By: #### L501.080 #### [facility] Point of Care [address] [address] Observed: 08/15/2018 Status: F Source: [place] STOOL OCCULT BLOOD 5:10 AM [facility] IFOB REPOSITORY STOB iFOB Normal Reference Range = Negative. CRITICAL VALUE VERIFIED. CALLED TO HAILEY URIAS 08/15/18 0618 [facility]. RESULTS READ BACK BY SAME . Occult Blood Positive ORGANISM 1: OCCULT BLOOD POSITIVE Performed By: #### M100.7900 #### [facility] [address] [place], [address] HH, HEMOGLOBIN AND Collected: 08/15/2018 Status: F Source: [place] HEMATOCRIT 1:45 AM [facility] REPOSITORY TYPE CODE TESTS RESULT OUT OF RANGE REFERENCE UNITS LAB L100.1300 12.0-15.0 g/dl Low HGB 7.0 LAB L100.1400 37-47 % Low HCT 24.6 Performed By: #### L100.0600 #### [facility] [address] [place], [address] BEDSIDE GLUCOSE Collected: 08/14/2018 Status: F Source: [place] 10:19 PM [facility] REPOSITORY TYPE CODE TESTS RESULT OUT OF REFERENCE UNITS RANGE LAB L501.080 70-110 mg/dL High BEDSIDE GLU 283 Result Comment: MANAGEMENT OF PATIENT CARE PER NURSING PROTOCOL Performed By: #### L501.080 #### [facility] Point of Care [address] [place] [address] HH, HEMOGLOBIN AND Collected: 08/14/2018 Status: F Source: [place] HEMATOCRIT 8:10 PM [facility] REPOSITORY Order Comment: RAC TYPE CODE TESTS RESULT OUT OF RANGE REFERENCE UNITS LAB L100.1300 12.0-15.0 g/dl Low HGB 7.3 LAB L100.1400 37-47 % Low HCT 26.2 Performed By: #### L100.0600, L100.9950 #### [facility] [address] [place], [address] RETIC PANEL Collected: 08/14/2018 Status: F Source: [place] 8:10 PM [facility] REPOSITORY Order Comment: RAC TYPE CODE TESTS RESULT OUT OF RANGE REFERENCE UNITS LAB L101.0000 0.5-1.5 % High RETIC 2.39 LAB L101.0060 3.00-15.90 % High IM RET FRACTION 26.80 LAB L101.0090 30-35 pg Low RET-HE 14.7 LAB L101.0110 1.0-7.9 % Normal IPF 4.0 Result Comment: Low PLT + Low IPF suggest a bone marrow production disorder Low PLT + high IPF suggests peripheral destruction (e.g.ITP, TTP, HIT, DIC, autoimmune) or bone marrow recovery Trending of serial IPF measurements is recommended when evaluating for bone marrow respones Value above normal range indicates an increase in RBC cellular response from bone marrow. Performed By: #### L100.0600, L100.9950 #### [facility] [address] [place], [address] THYROID STIM HORMONE Collected: 08/14/2018 Status: F Source: PERU (TSH) 8:10 PM [facility] REPOSITORY Order Comment: RAC TYPE CODE TESTS RESULT OUT OF RANGE REFERENCE UNITS LAB L501.9520 0.358-3.74 uIU/mL Low TSH 0.01 Performed By: #### L501.9520, L503.6030, L503.6550 #### [facility] [address] [place], [address] IRON+IRON BINDING Collected: 08/14/2018 Status: F Source: [place] CAPACITY 8:10 PM [facility] REPOSITORY Order Comment: RAC TYPE CODE TESTS RESULT OUT OF RANGE REFERENCE UNITS LAB L503.6075 250-450 ug/dL TIBC Normal 303 LAB L503.6150 50-170 ug/dL Low IRON 14 LAB L503.6250 15.0-55.0 % Low IRON SATURATION 4.6 Performed By: #### L501.9520, L503.6030, L503.6550 #### [facility] [address] [place], [place], [id number] FERRITIN Collected: 08/14/2018 Status: F Source: PERU 8:10 PM [facility] REPOSITORY Order Comment: RAC TYPE CODE TESTS RESULT OUT OF RANGE REFERENCE UNITS LAB L503.6550 8-252 ng/mL Normal FERRITIN 22 Performed By: #### L501.9520, L503.6030, L503.6550 #### [facility] [address] [place], [address] HEMOGLOBIN A1C Collected: 08/14/2018 Status: F Source: PERU 8:10 PM [facility] REPOSITORY Order Comment: RAC TYPE CODE TESTS RESULT OUT OF RANGE REFERENCE UNITS LAB L501.9985 4.2-6.3 % High HGB A1C 13.7 Performed By: #### L501.9985 #### [facility] [address] [place], [address] TYPE AND SCREEN Collected: 08/14/2018 Status: F Source: PERU 8:10 PM [facility] REPOSITORY Order Comment: 08/14/18 2203 Martín Fowler. CMV NEG? N Is there an orthostatic change in BP (SBP drop > 10mmHg)? Y Reason for Ordering Blood: Chronic Is there symptomatic anemia? Y Are the blood/blood products to be transfused? N Is the patient having/had surgery? N RAC Give When? Type AND Hold Irradiated? N Leukodepleted? Y TYPE CODE TESTS RESULT OUT OF RANGE REFERENCE UNITS LAB B10.0800 B Normal BLOOD TYPE GEL POSITIVE LAB B100.4000 Normal Antibody NEGATIVE Screen Performed By: #### B101.7450 #### [facility] [address] [facility] [place], [address] RC Collected: 08/14/2018 Status: F Source: PERU 8:10 PM [facility] REPOSITORY TYPE CODE TESTS RESULT OUT OF REFERENCE UNITS RANGE LAB U100.0000 [id number] TRANSFUSED PRODUCT: T AND S with Crossmatch, Red Cells COUNT: 2 Performed By: #### U100.0000 #### [facility] - refer to report for specific site HISTORY AND PHYSICAL Observed: 08/14/2018 Status: F Source: PERU EXAM 5:53 PM [facility] REPOSITORY [facility] Medical Records Department [address] [place] [id number] History and Physical 08/14/18 1726 MR#: [id number] Acct: [id number] Name: OLGA DONALDSON Rep #: [id number] : 1945 73 From: Connor Skaggs DO PCP: Ramone Smiley MD Status: ADM IN Y [facility] Problem List (1) Acute renal failure Status: Acute (2) Chronic renal failure, stage 3 (moderate) Status: Chronic (3) COPD (chronic obstructive pulmonary disease) Status: Chronic (4) History of constipation Status: Chronic (5) Hx of venous thrombosis and embolism Status: Chronic (6) History of malignant neoplasm of breast Status: Chronic (7) Tobacco use Status: Chronic (8) Hypertension Status: Chronic (9) Type 2 diabetes mellitus Status: Chronic (10) Asthma Status: Chronic (11) Microcytic anemia Status: Chronic (12) Urine retention Status: Chronic (13) Hyponatremia Status: Acute (14) Aortic stenosis Status: Chronic Comment: valve area in 2014 was 1.7cm2 History of Present Illness Date of Admission: 08/14/18 Chief Complaint: lightheadedness, suprapubic pain The patient is a 73 year old F with a past medical history of hypertension, COPD, breast cancer, CRF stage III, microcytic anemia, VTE, tobacco dependence and DM II who presented to the ED at [facility] on 08/14/2018 complaining of nausea, vomiting and decreased OP from a mccall catheter placed in Dr. Edmondson's office on . UA done at that time grew only yeast. Vital signs at presentation to the emergency room were temperature 97.8, pulse rate 73, blood pressure 103/35, respiratory rate 16 and she is 95-98% saturated on room air. White blood cell count is 10.4 with an unremarkable differential. Hemoglobin is 7.6 with an MCV of 62.7 and this has been declining over the past 2 years. Platelets are 424,000. Sodium was low at 126 and the chloride is low at 91. Potassium is 4.8 and the BUN is 25 with a creatinine of 1.63, up from 0.78 in May 2018. Random blood sugar is 371 and the calcium is increased to 10.5, likely secondary to dehydration. There is a very small amount of urine from the mccall at this time and it is brownish in color. She denies any fevers/chills. A noncontrasted CT of the abdomen and pelvis showed no hydronephrosis with a decompressed urinary bladder by a Mccall catheter. There is thickening of the urinary bladder wall and severe rectosigmoid fecal retention. She is being admitted to the hospital with a dx of acute kidney injury on CRF stage 3 and fecal retention with N/V. Past Medical History Past Medical History (Chronic Problems): Chronic Problems (Last Reviewed 08/14/18 @ 17:39 by Connor Skaggs DO) Chronic renal failure, stage 3 (moderate) (Chronic) Microcytic anemia (Chronic) Urine retention (Chronic) Aortic stenosis (Chronic) valve area in 2015 was 1.7cm2 COPD (chronic obstructive pulmonary disease) (Chronic) History of constipation (Chronic) Hx of venous thrombosis and embolism (Chronic) History of malignant neoplasm of breast (Chronic) Tobacco use (Chronic) Hypertension (Chronic) Type 2 diabetes mellitus (Chronic) Asthma (Chronic) Medical History: Medical History (Last Reviewed 08/14/18 @ 17:39 by Connor Skaggs DO) Anemia D64.9 Asthma J45.909 COPD (chronic obstructive pulmonary disease) J44.9 Carpal tunnel syndrome of right wrist G56.01 Cellulitis and abscess of finger, unspecified L03.019, L02.519 Chronic idiopathic constipation K59.04 Diabetes E11.9 GERD (gastroesophageal reflux disease) K21.9 Goiter, nontoxic, 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 Hypercholesteremia E78.00 Leg weakness, bilateral R29.898 Peripheral artery disease I73.9 Polypharmacy Z79.899 Pruritus L29.9 Retinopathy H35.00 Rhinitis J31.0 Strain of right rotator cuff capsule S46.011A Urinary retention with incomplete bladder emptying R33.9 Vitamin D deficiency E55.9 Hypertension I10 Allergies amoxicillin Allergy (Verified 08/14/18 13:44) YEAST INFECTION cephalexin monohydrate [From Keflex] Allergy (Verified 08/14/18 13:44) Rash clopidogrel bisulfate [From Plavix] Allergy (Verified 08/14/18 13:44) Other cloth tap Allergy (Uncoded 08/14/18 13:44) Other Home Medications: Ambulatory Orders Medication Instructions Recorded Coconut Oil/Beeswax/Safflower [Lip 90 gm TP DAILY 12/25/14 [employer] Natural] Cod Liver Oil 1 ea PO DAILY 12/25/14 Lisinopril [Zestril] 40 mg PO DAILY 12/25/14 Surgical History: Surgical History (Last Reviewed 08/14/18 @ 17:39 by Connor Skaggs DO) History of Achilles tendon repair Z98.890 History of lumpectomy of left breast Z98.890 2003 Retinopathy H35.00 LASER SURGERY LEFT EYE 2005 Surgical History: mastectomy, - - colonoscopies in the past she does not think found anything significant. Psychiatric History: No pertinent psych hx TELLER VAULT History: No pertinent TELLER VAULT history Lives: Spouse/ Significant Other Smoking Status: Former smoker Tobacco Use: Non-smoker Alcohol: Rare Drugs: None - *Family History Maternal Family History: Family History (Last Reviewed 08/14/18 @ 17:39 by Connor Skaggs DO) Daughter Breast cancer Father Hypertension Sister Cancer Kidney disease Mother Pancreatic cancer History Items: Diabetes, Hypertension Paternal Family History: Family History (Last Reviewed 08/14/18 @ 17:39 by Connor Skaggs DO) Daughter Breast cancer Father Hypertension Sister Cancer Kidney disease Mother Pancreatic cancer History Items: Diabetes, Hypertension Review of Systems Constitutional: Reports: Chills, Weakness. Denies: Fever, Weight Change Eyes: Denies: Blurred vision, Pain HEENT: Denies: Difficulty Swallowing, Head Aches, Sinus Congestion, Sinus Drainage Cardiovascular: Reports: Light Headedness. Denies: Chest Pain, Palpitations Respiratory: Reports: Cough - with clear sputum occasionally. Denies: Shortness of Breath, Shortness of breath at rest, Sputum production Gastrointestinal: Reports: Constipation, Nausea, Vomiting. Denies: Abdominal Pain, Hematemesis, Hematochezia Genitourinary: Reports: - - she has had suprapubic pain since tyhe mccall was inserted on . Denies: Dysuria Gynecological: Denies: Breast symptoms, Vaginal discharge Musculoskeletal: Denies: Joint Pain, Joint Tenderness Skin: Denies: Jaundice, Rash, Wounds Neurological: Reports: Balance problems - due to lightheadedness when standing. Denies: Slurred speech, Confusion, Focal weakness, Numbness, Tingling Psychiatric: Denies: Anxiety, Depression, Homicidal Ideations, Suicidal Ideations Hematologic/ Lymphatic: Reports: Hx of blood clot. Denies: Easy Bruising, Easy Bleeding VTE Information - Inpt Only VTE Present on Admission: No VTE Mechan Device Prophylaxis: SCD's, Knee High MARIAJOSE Hose VTE Pharm Prophylaxis ordered?: Yes Patient Problems: Active and Suspected Problems (Last Reviewed 08/14/18 @ 17:39 by Connor Skaggs DO) Acute renal failure (Acute) Hyponatremia (Acute) - Physical Exam General: Alert, Oriented x3, Cooperative, No apparent distress, Well developed, Well nourished HEENT: Atraumatic, PERRLA, EOMI, Normocephalic Oral: Dry Mucosa Neck: Supple, No JVD, - - She either has BL carotid bruits OR radiation of an aortic MM Lungs: Clear to auscultation - after a few deep breaths.....initially had coarse crackles in the R base, Normal air movement Cardiovascular: Regular rate, Murmur - 3/6 systolic MM at the second RICS with radiation to the LVOT, LLSB and the apex Abdomen: Bowel Sounds Present, Soft, Non Tender Extremities: No clubbing, No cyanosis, No edema, Capillary Refill Less than 3 Seconds, No Calf Tenderness, Peripheral Pulses Normal Skin: No rashes, No breakdown Musculoskeletal: No Tenderness to Palpation of Joints or Extremities, Arthritic Changes Neurological: Cranial nerves II-XII grossly intact, Neuro grossly intact Psych/Mental Status: Normal Affect, Appropriate Vital Signs Temp Pulse Resp BP Pulse Ox 98 F 82 18 109/51 L 98 08/14/18 15:00 08/14/18 16:13 08/14/18 15:57 08/14/18 16:13 08/14/18 15:57 Oxygen Delivery Method Room Air Weight: 173 lb Body Mass Index (BMI) 30.6 Laboratory Tests Past 24 Hrs WBC 10.4 RBC 4.37 Hgb 7.6 L Hct 27.4 L Assessment/Plan All Active Problems (Last Reviewed 08/14/18 @ 17:39 by Connor Skaggs DO) Acute renal failure (Acute) Hyponatremia (Acute) Impressions 1. acute kidney injury on CRF stage 3 - suspect due to dehydration due to uncontrolled DM 2. urine retention - had a mccall placed at Dr. Edmondson's office on - pt is unable to do the self cath herself and there is no one at home to do this for her - she may need a suprapubic 3. DM II 4. HTN 5. hyponatremia 6. dehydration 7. MM - due to 8. COPD 9. former smoker 10. hypercalcemia - likely due to dehydration 11. microcytic anemia Admit to the hospital and hydrate Check urine sodium and creat Check a TSH iron studies and a retic panel Mag Citrate tonight and start Miralax BID Dulcolax suppository now Recheck the lab in the AM ECHO to evaluate for progression of the aortic MM Check a HGBA1C order home meds when we are able to get a accurate med list Code Visit Inpatient Yoni AND M: [id number] Init Hosp L3 08/14/18 4935 <Electronically signed by Connor Skaggs DO> Date Connor Skaggs DO Cosigner Signature: Date (if applicable) CC: Shakira Skaggs; Ramone Smiley MD Signed URINALYSIS, COMPLETE Collected: 08/14/2018 Status: F Source: [facility] 4:20 PM [facility] REPOSITORY Order Comment: Order Date: 08/14/18 Has pt arrived? Y Microscopic field is filled. Other elements may be obscured. How was Urine Obtained? CLEAN CATCH TYPE CODE TESTS RESULT OUT OF REFERENCE UNITS RANGE LAB L400.3000 Yellow COLOR Normal Yellow LAB L400.3050 Clear CLARITY Normal Cloudy LAB L400.3200 Normal mg/dl GLUCOSE, UR High 100 LAB L400.3300 Negative mg/dL BILIRUBIN Normal URINE Negative LAB L400.3400 Negative mg/dl KETONE UR Normal Negative LAB L400.3465 1.002-1.030 SP.GR. Normal DIPSTX 1.015 LAB L400.3550 5.0 - 8.0 pH UR Normal 6.5 LAB L400.3600 Negative mg/dl PROT DIPSTX High 500 LAB L400.3700 Normal mg/dl UROBILI Normal Normal LAB L400.3750 Negative NITRITE UR Normal Negative LAB L400.3780 Negative /ul OCCULT High BLOOD-UR 150 LAB L400.3800 Negative /ul LEUK High ESTERASE 500 LAB L400.4050 0-5 /hpf WBC Normal 50-100 SEEN LAB L400.4100 0-5 /hpf RBC-UA Normal 50-100 SEEN LAB L400.4150 5-10 /hpf SQUAM EPI Normal 0-5 SEEN LAB L400.4300 None Seen /hpf BACTERIA Normal 2+ LAB L400.4350 <or=2+ /hpf MUCUS, Normal URINE 0 SEEN LAB L400.4200 0-5 /hpf Normal TRANSITIONAL EP 5-10 SEEN LAB L400.4900 AMORPHOUS Normal 2+ LAB L400.5200 None Seen /hpf YEAST-URINE Normal RARE Performed By: #### L400.0001 #### [facility] [address] [place], [address] CREATININE, URINE Collected: 08/14/2018 Status: F Source: PERU (RANDOM) 4:20 PM [facility] REPOSITORY TYPE CODE TESTS RESULT OUT OF RANGE REFERENCE UNITS LAB L501.1200 NO RANGE EST. mg/dL Normal UR CREAT 116.00 Performed By: #### L501.1200, L501.5500 #### [facility] [address] [place], [address] URINE SODIUM Collected: 08/14/2018 Status: F Source: PERU 4:20 PM [facility] REPOSITORY TYPE CODE TESTS RESULT OUT OF RANGE REFERENCE UNITS LAB L501.5500 Not Establ. mmol/L Normal UR NA 64 Performed By: #### L501.1200, L501.5500 #### [facility] [address] [place], [address] EMERGENCY DEPARTMENT Observed: 08/14/2018 Status: F Source: PERU SUMMARY 4:15 PM [facility] REPOSITORY [facility] Medical Records Department [address] [place] [address] Emergency Department Summary 08/14/18 1612 MR#: [id number] Acct: [id number] Name: OLGA DONALDSON Rep #: [id number] : 1945 73 From: Robert Allison DO PCP: Baljit LEARY,Ramone Status: REG ER - ER Visit Summary Date of Service: 08/14/18 Chief Complaint: [Decreased urine output and dizziness] History of Present Illness: The patient is a 73 F [presents the emergency department complaint of decreased urine output since last evening. Patient states that she had a Mccall catheter placed 2 days ago for urinary retention. Patient was started on antibiotics. Patient has been feeling dizzy for the last several days. She describes some abdominal pressure but no fever. She has had no vomiting. She said no diarrhea. Last bowel movement was 2 days ago. Patient has a history of asthma, COPD, diabetes, hypertension, constipation, and DVT history] Physical Examination: [HEENT-PERRLA, EOMI. Cranial nerves II through XII grossly intact. TMs clear. Mucous membranes moist. No adenopathy. Cardiovascular-regular rate and rhythm without murmur or ectopy Lungs-clear to auscultation, chest wall stable without crepitus or subcu emphysema Abdomen-normoactive bowel sounds, soft, nontender, no rebound or rigidity, no peritoneal signs. Extremities-intact 4, normal range of motion, normal pulses, atraumatic] Test Results: [CBC with differential obtained showed a white count of 10.4, hemoglobin 7.6, hematocrit 27, platelets 421. Chemistries showed a sodium of 126, potassium 4.8, chloride 91, CO2 25, BUN 25, creatinine 1.63. Urinalysis ordered and pending. CT scan of the abdomen pelvis ordered after discussion with hospitalist and is pending.] Emergency Department Course and Treatment: [Patient was given IV normal saline a liter bolus. Patient did have some emesis in the department and was given Zofran 4 mg IV. Patient's blood pressure continues to be in the 90s.] On arrival patient had a bladder scan performed and only showed 100 cc of urine. Patient had a new Mccall catheter placed. Treatment Plan: [Admit for further workup and evaluation] Disposition: [Admit] Impression: [Acute kidney injury Hyponatremia Anemia-chronic Dizziness] This note was generated with VenueAgent dictation software. It may contain incorrect words, spelling, and punctuation that were not noted in review of the chart prior to signing ED Disposition - Plan for ED Patient: Chief Complaint: Complaint Referrals: Ramone Smiley MD [Primary Care Provider] - What to do if you have Problems For any increased pain, shortness of breath, bleeding, nausea or vomiting, chest pain, or any unexpected problems, contact your Primary Care Provider. Call [facility] ([phone]) or report to the closest Emergency Room. Call 911 if necessary. 08/14/18 9354 <Electronically signed by Robert Allison DO> Date Robert Allison DO Cosigner Signature (If Indicated): Date CC: Ramone Smiley MD ABDOMEN/PELVIS WITHOUT Observed: 08/14/2018 Status: F Source: JAQUELIN CONT 3:53 PM [facility] REPOSITORY [facility] Imaging Services [address] [place] [address] Abdomen/Pelvis without Cont MR#: [id number] Acct: [id number] Name: OLGA DONALDSON Rep #: [id number] : 1945 F 73 From: Zechariah Redmond MD PCP: Ramone Smiley MD Status: ADM IN Study: Abdomen/Pelvis without Cont Date of Exam: 08/14/18 Exam# [id number] Ordering Dr: Robert Allison DO STUDY: CT ABDOMEN AND PELVIS WITHOUT CONTRAST REASON FOR EXAM: Female, 73 years old. Vomiting with diminished urinary output RADIATION DOSAGE (If Supplied By Facility): CTDIvol = ( 8.03 ) mGy, DLP = ( 411.32 ) mGycm TECHNIQUE: Transaxial images were obtained from the dome of the diaphragm to the symphysis pubis without oral contrast, and without intravenous contrast. Sagittal and coronal images were reconstructed. Individualized dose optimization techniques were used for this CT. COMPARISON: None. FINDINGS: The visualized lung bases are unremarkable. The visualized portions of the heart are within normal limits. Normal liver. Normal gallbladder and extrahepatic biliary system. Normal spleen. Normal pancreas. Normal bilateral adrenal glands. Normal right kidney. Normal left kidney. Normal visualized stomach. Normal small intestine. Persistent severe fecal retention involving the rectosigmoid colon, particularly in the rectal vault. Mild amount of perirectal stranding identified but no stacie rectal wall disruption or pneumoperitoneum. Less severe fecal retention noted throughout the colon in all colonic segments. There is non-visualization of the appendix. There is diffuse atherosclerotic calcification of the abdominal aorta, without a demonstrated aneurysm. Small caliber infrarenal abdominal aorta suggestive of lower aortic stenosis, stable. Normal inferior vena cava. Normal retroperitoneum. The urinary bladder is decompressed by a Mccall catheter. Evaluation of the urinary bladder wall is limited given lack of distention. Urinary bladder wall thickening possible. Uterine calcifications may represent uterine fibroids. Normal abdominal wall. There are diffuse degenerative changes of the visualized lumbar spine. Canal stenosis identified at L3- L4 and L4-L5. CT/Abdomen/Pelvis without Cont IMPRESSION: 1. No hydronephrosis. 2. Decompressed urinary bladder by Mccall catheter as compared to the prior study. Urinary bladder wall thickening cannot be excluded on this exam. 3. 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 Stercoral proctitis is possible. No pneumoperitoneum or ulceration. Increased since prior study. 4. Additional stable chronic changes, as above. Electronically Signed: Zechariah Redmond MD at 17:26 EST , Service support , CC: Ramone Smiley MD; Robert Allison DO Steam Trap Man: Signed CBC W/DIFF, AUTOMATED Collected: 08/14/2018 Status: F Source: PERU 2:30 PM [facility] REPOSITORY TYPE CODE TESTS RESULT OUT OF RANGE REFERENCE UNITS LAB L100.1000 4.4-11.0 K/mm3 Normal WBC 10.4 LAB L100.1200 4.2-5.4 M/mm3 Normal RBC 4.37 LAB L100.1300 12.0-15.0 g/dl Low HGB 7.6 LAB L100.1400 37-47 % Low HCT 27.4 LAB L100.1500 81-99 fL Low MCV 62.7 LAB L100.1600 27.0-32.0 pg Low MCH 17.4 LAB L100.1700 32-36 g/gl Low MCHC 27.7 LAB L100.1810 11.6-14.6 % High RDW CV 20.8 LAB L100.1820 35.1-43.9 fl High RDW SD 47.5 LAB L100.1900 150-450 K/mm3 Normal PLT 424 LAB L100.2000 6.2-12.0 fl Normal MPV 9.0 LAB L100.2100 47-70 % Normal NEUT% 57.7 LAB L100.2200 19-41 % Normal LY% 30.7 LAB L100.2300 0-10 % Normal MONO% 6.6 LAB L100.2400 0-5 % Normal EO% 4.3 LAB L100.2500 0-1 % Normal BASO% 0.4 LAB L100.2550 0.0-0.9 % Normal IM GRAN % 0.300 Result Comment: IG% - Immature Granulocytes (promyelocytes, myelocytes and metamyelocytes) > 1% indicates that a LEFT SHIFT is Present. LAB L100.2620 2.0-7.7 X10 3/uL Absolute Neut Normal 6.0 LAB L100.2720 0.83-4.51 X10 3/ul Absolute Lymph Normal 3.18 LAB L100.5500 ADEQ PLT EST Normal ADEQUATE LAB L100.5650 PLT MORPH Normal LARGE LAB L100.7300 ANISO Normal 2+ LAB L100.7500 POLYCHROMASIA Normal 1+ LAB L100.7600 HYPOCHROMASIA Normal 2+ LAB L100.7700 MICROCYTES Normal 2+ Performed By: #### L100.0100 #### [facility] [address], [address] BASIC METABOLIC Collected: 08/14/2018 Status: F Source: [place]U PROFILE ([facility]) 2:30 PM [facility] REPOSITORY TYPE CODE TESTS RESULT OUT OF RANGE REFERENCE UNITS LAB L501.0100 74-106 mg/dL High GLU 371 Result Comment: Glucose result greater than or equal to 200 mg/dL suggests DIABETES MELLITUS per A.D.A. criteria. Please note revised GLUCOSE reference range effective 2017. LAB L501.1000 7-18 mg/dL High BUN 25 LAB L501.1100 0.55-1.02 mg/dL High CREAT,SERUM 1.63 Result Comment: The validity of the calculated GFR AND GFRAA in patients over 70 years has not been determined. Clinical correlation is essential. LAB L501.1110 >60 mL/min Low EST GFR 33 Result Comment: Non- GFR Calc LAB L501.1115 >60 mL/min Low EST GFR - AA 40 Result Comment: GFR Calc LAB L501.1255 ml/min Normal Estimated CRCL 25.05 LAB L501.1300 10-20 RATIO Normal BUN/CRE 15.3 LAB L501.2200 8.5-10 mg/dL High .1 CA 10.5 LAB L501.5300 136-14 mmol/L Low 5 NA 126 LAB L501.5600 3.5-5. mmol/L Normal 1 K 4.8 LAB L501.5900 98-107 mmol/L Low CL 91 LAB L501.6100 21.0-3 mmol/L Normal 2.0 CO2 25.0 LAB L501.6200 5-15 Normal GAP 10 Performed By: #### L500.2500 #### [facility] [address] [place], [address] Observed: 08/12/2018 Status: F Source: PERU CULTURE, URINE 2:45 PM [facility] REPOSITORY Urine Culture ORGANISM 1: Yeast Empire Count 25,000-50,000 Performed By: #### M100.0650 #### [facility] [address] [place], [address] EMERGENCY DEPARTMENT Observed: 07/04/2018 Status: F Source: JAQUELIN SUMMARY 2:59 AM [facility] REPOSITORY [facility] Medical Records Department [address] [place] [address] Emergency Department Summary 07/04/18 0124 MR#: [id number] Acct: [id number] Name: OLGA DONALDSON Rep #: [id number] : 1945 73 From: Carlos Hunt MD PCP: Baljit LEARY,Ramone Status: DEP ER - ER Visit Summary Date of Service: 07/04/18 Chief Complaint: Urinary retention History of Present Illness: The patient is a 73 F presents to the emergency department with urinary retention. The patient was actually seen here just about 10 days ago for the same. At that time, she had urinary retention and had a Mccall catheter placed. She had over 2 L of urine that was drained. She had a CT scan of her abdomen which showed some calcifications of her aorta, but no aneurysm. She also had mild constipation. The patient did follow-up with Dr. Edmondson. She had the catheter removed earlier this week, but since then, has had return of her difficulty urinating. She states she is only had dribbling. She denies any fevers or chills. She denies any nausea or vomiting. She denies any recent change in medications. She states she has been moving her bowels without issue. Physical Examination: Vital signs reviewed General: Well-nourished, well-developed Head: Normocephalic, atraumatic Eyes: Pupils equal and reactive, extraocular muscles intact Neck, supple, no lymphadenopathy Heart: Regular rate and rhythm Respiratory: No distress, clear bilaterally Abdomen: Soft, nontender, nondistended, no peritoneal signs Back: Nontender Extremities: Nontender, no edema, no cords Skin: Normal color no rash Neuro: Alert and oriented, no focal or lateralizing deficits Test Results: [] Emergency Department Course and Treatment: The patient presents with acute urinary retention. Mccall was placed. She had 2 L of urine out almost immediately and marked improvement of her symptoms. She was complaining of some mild pain, but that was improved after the Mccall was placed. The patient was able to fully drain. There was some scant blood within the urine, but no clots. There is no evidence of further obstruction. Her urine does show evidence of infection. Culture was added. Based on the patient's allergies, she will be started on Cipro. I did executive assistant to general counsel her that she needs to follow-up with Dr. Carrillo as this is recurrent retention. I am going to treat her constipation with magnesium citrate. The patient is comfortable with this plan of care. She will be discharged home. Treatment Plan: [] Disposition: [] Impression: Acute urinary retention 2. Acute cystitis This note was generated with VenueAgent dictation software. It may contain incorrect words, spelling, and punctuation that were not noted in review of the chart prior to signing ED Disposition - Plan for ED Patient: Disposition: Home or Assisted Living Chief Complaint: Complaint Instructions: ED Retention Urinary Female, ED UTI Cystitis Female Prescriptions: Ciprofloxacin [Cipro] 500 mg PO BID #14 tab Referrals: Presley Edmondson MD [STAFF PHYSICIAN] - What to do if you have Problems For any increased pain, shortness of breath, bleeding, nausea or vomiting, chest pain, or any unexpected problems, contact your Primary Care Provider. Call [facility] ([phone]) or report to the closest Emergency Room. Call 911 if necessary. 07/04/18 0259 <Electronically signed by Carlos Hunt MD> Date Carlos Hunt MD Cosigner Signature (If Indicated): Date CC: Ramone Smiley MD URINALYSIS, COMPLETE Collected: 07/04/2018 Status: F Source: JAQUELIN 1:35 AM [facility] REPOSITORY Order Comment: Order Date: 07/04/18 Has pt arrived? Y How was Urine Obtained? CATHETER SPECIMEN TYPE CODE TESTS RESULT OUT OF RANGE REFERENCE UNITS LAB L400.3000 Yellow COLOR Normal Yellow LAB L400.3050 Clear Normal CLARITY Cloudy LAB L400.3200 Normal mg/dl High GLUCOSE, UR 1000 LAB L400.3300 Negative mg/dL Normal BILIRUBIN URINE Negative LAB L400.3400 Negative mg/dl Normal KETONE UR Negative LAB L400.3465 1.002-1.030 Normal SP.GR. DIPSTX 1.010 LAB L400.3550 5.0 - 8.0 pH UR Normal 6.0 LAB L400.3600 Negative mg/dl High PROT 30 DIPSTX LAB L400.3700 Normal mg/dl Normal UROBILI Normal LAB L400.3750 Negative Normal NITRITE UR Negative LAB L400.3780 Negative /ul High OCCULT BLOOD-UR 250 LAB L400.3800 Negative /ul High LEUK ESTERASE 500 LAB L400.4050 0-5 /hpf WBC Normal 25-50 SEEN LAB L400.4100 0-5 /hpf Normal RBC-UA 10-25 SEEN LAB L400.4150 5-10 /hpf SQUAM 0 Normal EPI SEEN LAB L400.4300 None Seen /hpf Normal BACTERIA RARE LAB L400.4350 <or=2+ /hpf 0 Normal MUCUS, URINE SEEN LAB L400.5200 None Seen /hpf 3+ Normal YEAST-URINE Performed By: #### L400.0001 #### [facility] [address] [place], [address] Observed: 07/04/2018 Status: F Source: JAQUELIN CULTURE, URINE 1:35 AM [facility] REPOSITORY Urine Culture ORGANISM 1: Nithya albicans Empire Count >100,000 Performed By: #### M100.0650 #### [facility] [address] [place], [address] EMERGENCY DEPARTMENT Observed: 06/25/2018 Status: F Source: [place]U SUMMARY 6:54 PM [facility] REPOSITORY [facility] Medical Records Department [address] [place] [address] Emergency Department Summary 06/25/18 1848 MR#: [id number] Acct: [id number] Name: OLGA DONALDSON Rep #: [id number] : 1945 73 From: Kwaku Marcial MD PCP: Ramone Smiley MD Status: REG ER - ER Visit Summary Date of Service: 06/25/18 Chief Complaint: Presents from radiology suite because of abdominal fullness, distention and problem with bladder History of Present Illness: The patient is a 73 F who states she has been having difficulty urinating for a while. She states she only urinates a small amount. She does denies fever or chills. She does complain of night sweats. Past history is remarkable for breast cancer with lumpectomy. She states she has hard stool that her marble size. She denies any blood or mucus. She denies black or maroon stool. She denies visual, ocular auditory symptoms. She denies any ENT symptoms. She denies cardiac or respiratory symptoms. She denies myalgias, arthralgias, neck or back pain. She denies rash or any skin lesions. She denies itching. She denies headache, general is weakness, anesthesia, paresthesia or motor weakness. She denies problems with bleeding or allergies. Physical Examination: Vitals noted and remarkable for elevated blood pressure 141/94. Head is atraumatic normocephalic. Pupils are equal round reactive. Extraocular muscles are intact. TMs are pearly white with landmarks noted. Nares patent with no drainage. Posterior pharynx without erythema or exudate. Uvula is midline. There is no dysphonia or dysphasia. Trachea is midline. There is no stridor with auscultation of the neck. Heart is regular without murmur, gallop or rub. S1 and S2 are normal. Lungs are clear to auscultation with good movement of air bilaterally. Abdomen is distended tympanitic with diminished bowel sounds. Abdomen is nontender. There is no palpable or pulsatile mass. There is no abdominal bruit. There is no CVA tenderness. There is no asymmetry, swelling, discoloration, leg vein distention, palpable cords or tenderness along the distribution of the deep venous system. There is no edema. Skin without rash or lesions. Neuro exam is nonfocal. Test Results: Bladder scan indicated greater than thousand cc of urine in her bladder. Mccall was placed and 2.6 L drained. UA is remarkable for glucose. Basic metabolic panel is remarkable glucose of 236. Creatinine 0.78. This is compared to creatinine obtained June 14. Emergency Department Course and Treatment: Since bladder scan indicated greater liter of urine concern for obstructive nephropathy and reason for basic metabolic panel. Mccall was placed. CAT scan of the abdomen revealed a distended bladder and fecal stasis in the sigmoid rectal region. Patient reported 2 bowel movements and states her abdomen is not as distended or bloated. Treatment Plan: MiraLAX 3 times a day and referral to Dr. Andres Edmondson for urinary retention. Disposition: Discharge to home Impression: 1. Urinary retention, acute 2. Constipation 3. Hyperglycemia type II diabetic This note was generated with VenueAgent dictation software. It may contain incorrect words, spelling, and punctuation that were not noted in review of the chart prior to signing ED Disposition - Plan for ED Patient: Disposition: Home or Assisted Living Chief Complaint: Abd Pain Instructions: ED Constipation, ED Retention Urinary Female, ED Catheter Care Mccall Referrals: Ramone Smiley MD [Primary Care Provider] - Presley Edmondson MD [STAFF PHYSICIAN] - 5-7 Days Additional Instructions: Take Metamucil 2-3 times a day for the next [address] Edmondson's office tomorrow morning for appointment this coming week. What to do if you have Problems For any increased pain, shortness of breath, bleeding, nausea or vomiting, chest pain, or any unexpected problems, contact your Primary Care Provider. Call [facility] ([phone]) or report to the closest Emergency Room. Call 911 if necessary. 06/25/18 1744 <Electronically signed by Kwaku Marcial MD> Date Kwaku Marcial MD Cosigner Signature (If Indicated): Date CC: Ramone Smiley MD; Presley Edmondson MD BASIC METABOLIC Collected: 06/25/2018 Status: F Source: JAQUELIN PROFILE ([facility]) 4:44 PM [facility] REPOSITORY TYPE CODE TESTS RESULT OUT OF RANGE REFERENCE UNITS LAB L501.0100 74-106 mg/dL High GLU 236 Result Comment: Glucose result greater than or equal to 200 mg/dL suggests DIABETES MELLITUS per A.D.A. criteria. Please note revised GLUCOSE reference range effective 2017. LAB L501.1000 7-18 mg/dL Normal BUN 7 LAB L501.1100 0.55-1.02 mg/dL Normal CREAT,SERUM 0.78 Result Comment: The validity of the calculated GFR AND GFRAA in patients over 70 years has not been determined. Clinical correlation is essential. LAB L501.1110 >60 mL/min Normal EST GFR 76 Result Comment: Non- GFR Calc LAB L501.1115 >60 mL/min Normal EST GFR - AA 92 Result Comment: GFR Calc LAB L501.1255 ml/min Normal Estimated CRCL 40.83 LAB L501.1300 10-20 RATIO Low BUN/CRE 8.9 LAB L501.2200 8.5-10 mg/dL Normal .1 CA 9.4 LAB L501.5300 136-14 mmol/L Low 5 NA 133 LAB L501.5600 3.5-5. mmol/L Normal 1 K 3.5 LAB L501.5900 98-107 mmol/L Low CL 97 LAB L501.6100 21.0-3 mmol/L Normal 2.0 CO2 28.0 LAB L501.6200 5-15 Normal GAP 8 Performed By: #### L500.2500 #### [facility] [address] [place], [address] URINALYSIS, COMPLETE Collected: 06/25/2018 Status: F Source: JAQUELIN 4:25 PM [facility] REPOSITORY Order Comment: Order Date: 06/25/18 How was Urine Obtained? CLEAN CATCH TYPE CODE TESTS RESULT OUT OF RANGE REFERENCE UNITS LAB L400.3000 Yellow COLOR Normal Yellow LAB L400.3050 Clear Normal CLARITY Clear LAB L400.3200 Normal mg/dl High GLUCOSE, UR 1000 LAB L400.3300 Negative mg/dL Normal BILIRUBIN URINE Negative LAB L400.3400 Negative mg/dl Normal KETONE UR Negative LAB L400.3465 1.002-1.030 Normal SP.GR. DIPSTX 1.010 LAB L400.3550 5.0 - 8.0 pH UR Normal 6.5 LAB L400.3600 Negative mg/dl High PROT 15 DIPSTX LAB L400.3700 Normal mg/dl Normal UROBILI Normal LAB L400.3750 Negative Normal NITRITE UR Negative LAB L400.3780 Negative /ul Normal OCCULT BLOOD-UR Negative LAB L400.3800 Negative /ul LEUK Normal ESTERASE Negative LAB L400.4050 0-5 /hpf WBC 0 Normal SEEN LAB L400.4100 0-5 /hpf 0 Normal RBC-UA SEEN LAB L400.4150 5-10 /hpf SQUAM 0 Normal EPI SEEN LAB L400.4300 None Seen /hpf 0 Normal BACTERIA SEEN LAB L400.4350 <or=2+ /hpf 0 Normal MUCUS, URINE SEEN Performed By: #### L400.0001 #### [facility] [address] [place], [address] ABDOMEN/PELVIS WITH Observed: 06/25/2018 Status: F Source: JAQUELIN CONTRAST 1:19 PM [facility] REPOSITORY [facility] Imaging Services [address] [address] Abdomen/Pelvis WITH Contrast MR#: [id number] Acct: [id number] Name: OLGA DONALDSON Rep #: [id number] : 1945 F 73 From: Robert Randall MD PCP: Ramone Smiley MD Status: REG CLI Study: Abdomen/Pelvis WITH Contrast Date of Exam: 06/25/18 Exam# [id number] Ordering Dr: Ramone Smiley MD STUDY: CT ABDOMEN AND PELVIS WITH CONTRAST REASON FOR EXAM: Female, 73 years old. Abdominal distention and bloating. RADIATION DOSAGE (If Supplied By Facility): CTDIvol = ( 15.05 ) mGy, DLP = ( 963.59 ) mGycm TECHNIQUE: Transaxial images were obtained from the dome of the diaphragm to the symphysis pubis with oral contrast. 100ml ml of Isovue 300 contrast was administered. Sagittal and coronal images were reconstructed. Individualized dose optimization techniques were used for this CT. COMPARISON: Comparison is made with prior examination dated December 07, 2014. FINDINGS: The visualized lung bases are unremarkable. Coronary artery calcification. Normal liver. There are tiny gallstones. There is a 2.2 cm x 2.1 cm rounded hypodensity in the midportion of the spleen. This was not well seen on the prior study. Normal pancreas. Normal bilateral adrenal glands. Normal right kidney. Normal left kidney. Normal visualized stomach. Normal small intestine. Large amount of fecal material is seen in the rectosigmoid colon. The appendix is visualized and appears normal. There is diffuse atherosclerotic calcification of the abdominal aorta and its major visceral branches., without a demonstrated aneurysm. Normal inferior vena cava. There is borderline retroperitoneal lymphadenopathy with enlarged nodes no greater than 10mm in the short axis diameter. Markedly distended urinary bladder. Calcified fibroid uterus. Normal abdominal wall. There are diffuse degenerative changes of the visualized lumbar spine. CT/Abdomen/Pelvis WITH Contrast IMPRESSION: Distended urinary bladder. Tiny gallstones. Electronically Signed: Robert Randall MD at 14:37 EDT Tel [phone], Service support , CC: Ramone Smiley MD Steam Trap Man: Signed PTHIN Collected: 06/15/2018 Status: F Source: [place] 12:38 PM [facility] REPOSITORY Order Comment: PLEASE ADD PTHIN TO BLOOD DONE 06/14/18 PER TYPE CODE TESTS RESULT OUT OF RANGE REFERENCE UNITS LAB L509.1000 18.4-80.1 pg/mL High PTHIN 137.3 Performed By: #### L509.1000 #### [facility] [address] [place], [address] ERYTHROCYTE SED RATE Collected: 06/14/2018 Status: F Source: [place] 12:38 PM [facility] REPOSITORY TYPE CODE TESTS RESULT OUT OF RANGE REFERENCE UNITS LAB L102.0000 0-30 mm/hr High SED RATE 124 Performed By: #### L101.9900, L100.0100, L500.4050, L501.9520 #### [facility] [address] [place], [address] CBC W/DIFF, AUTOMATED Collected: 06/14/2018 Status: F Source: PERU 12:38 PM [facility] REPOSITORY TYPE CODE TESTS RESULT OUT OF RANGE REFERENCE UNITS LAB L100.1000 4.4-11.0 K/mm3 9.5 Normal WBC LAB L100.1200 4.2-5.4 M/mm3 Low 3.94 RBC LAB L100.1300 12.0-15.0 g/dl Low 7.1 HGB LAB L100.1400 37-47 % Low 25.5 HCT LAB L100.1500 81-99 fL Low 64.7 MCV LAB L100.1600 27.0-32.0 pg Low 18.0 MCH LAB L100.1700 32-36 g/gl Low 27.8 MCHC LAB L100.1810 11.6-14.6 % High 20.9 RDW CV LAB L100.1820 35.1-43.9 fl High 49.1 RDW SD LAB L100.1900 150-450 K/mm3 327 Normal PLT LAB L100.2000 6.2-12.0 fl Test Normal MPV not performed LAB L100.2100 47-70 % 68.4 Normal NEUT% LAB L100.2200 19-41 % 23.9 Normal LY% LAB L100.2300 0-10 % 5.7 Normal MONO% LAB L100.2400 0-5 % 1.7 Normal EO% LAB L100.2500 0-1 % 0.2 Normal BASO% LAB L100.2550 0.0-0.9 % 0.100 Normal IM GRAN % Result Comment: IG% - Immature Granulocytes (promyelocytes, myelocytes and metamyelocytes) > 1% indicates that a LEFT SHIFT is Present. LAB L100.2620 2.0-7.7 X10 3/uL Absolute Neut Normal 6.5 LAB L100.2720 0.83-4.51 X10 3/ul Absolute Lymph Normal 2.26 LAB L100.5500 ADEQ PLT EST Normal ADEQUATE LAB L100.7300 ANISO Normal 2+ LAB L100.7500 POLYCHROMASIA Normal RARE LAB L100.7600 HYPOCHROMASIA Normal 3+ LAB L100.7700 MICROCYTES Normal 2+ Performed By: #### L101.9900, L100.0100, L500.4050, L501.9520 #### [facility] [address] [place], [place], [address] COMPREHENSIVE METABOLIC Collected: 06/14/2018 Status: F Source: [facility] 12:38 PM [facility] REPOSITORY TYPE CODE TESTS RESULT OUT OF RANGE REFERENCE UNITS LAB L501.0100 74-106 mg/dL High GLU 352 Result Comment: Glucose result greater than or equal to 200 mg/dL suggests DIABETES MELLITUS per A.D.A. criteria. Please note revised GLUCOSE reference range effective 2017. LAB L501.1000 7-18 mg/dL Normal BUN 14 LAB L501.1100 0.55-1.02 mg/dL Normal CREAT,SERUM 0.99 Result Comment: The validity of the calculated GFR AND GFRAA in patients over 70 years has not been determined. Clinical correlation is essential. LAB L501.1110 >60 mL/min Low EST GFR 58 Result Comment: Non- GFR Calc LAB L501.1115 >60 mL/min Normal EST GFR - AA 70 Result Comment: GFR Calc LAB L501.1300 10-20 RATIO Normal BUN/CRE 14.1 LAB L501.1500 6.4-8.2 g/dL T Normal PROT 8.1 LAB L501.1800 3.2-5.0 g/dL Low ALB 3.0 LAB L501.1950 2.2-4.2 g/dL High GLOB 5.1 LAB L501.2000 0.9-2.4 RATIO Low A/G 0.6 LAB L501.2200 8.5-10.1 mg/dL High CA 10.3 LAB L501.4100 15-37 U/L Normal AST 19 LAB L501.4305 45-117 U/L Normal ALK P 110 LAB L501.4405 13-56 U/L Normal ALT 30 LAB L501.4600 0.20-1.00 mg/dL T Normal BILI 0.30 LAB L501.5300 136-145 mmol/L Low NA 135 LAB L501.5600 3.5-5.1 mmol/L Low K 3.2 LAB L501.5900 98-107 mmol/L Low CL 95 LAB L501.6100 21.0-32.0 mmol/L Normal CO2 28.0 LAB L501.6200 5-15 Normal GAP 12 Performed By: #### L101.9900, L100.0100, L500.4050, L501.9520 #### [facility] [address] [place], [place], [id number] THYROID STIM HORMONE Collected: 06/14/2018 Status: F Source: PERU (TSH) 12:38 PM [facility] REPOSITORY TYPE CODE TESTS RESULT OUT OF RANGE REFERENCE UNITS LAB L501.9520 0.358-3.74 uIU/mL Normal TSH 0.46 Performed By: #### L101.9900, L100.0100, L500.4050, L501.9520 #### [facility] [address] [place], [place], [id number] CRP Collected: 06/14/2018 Status: F Source: [place] 12:38 PM [facility] REPOSITORY TYPE CODE TESTS RESULT OUT OF RANGE REFERENCE UNITS LAB L501.6710 0.0-3.0 mg/L High 20.80 C-REACTIVE PROT Result Comment: C-Reactive Protein (CRP) provides useful information for the diagnosis, therapy and monitoring of inflammatory processes and associated diseases. For the evaluation of Relative Risk for Cardiovascular Disease, a High Sensitivity CRP (HSCRP) should be ordered. Performed By: #### L501.6710 #### [facility] [address] [place], [address] ABD INC DECUB Observed: 05/07/2018 Status: F Source: JAQUELIN AND/OR ERECT 12:56 PM [facility] REPOSITORY [facility] Imaging Services [address] [place] [address] Abd Inc Decub and/or Erect MR#: [id number] Acct: [id number] Name: OLGA DONALDSON Rep #: [id number] : 1945 F 73 From: Raji Gonzalez MD PCP: Ramone Smiley MD Status: REG CLI Study: Abd Inc Decub and/or Erect Date of Exam: 05/07/18 Exam# [id number] Ordering Dr: Ramone Smiley MD STUDY: X-RAY - ABDOMEN/PELVIS REASON FOR EXAM: Female, 73 years old. Abdominal pain, nausea, diarrhea and vomiting. TECHNIQUE: AP supine and upright views of the abdomen and pelvis. COMPARISON: None. FINDINGS: Normal visualized lung bases. There is an abundance of fecal material throughout the colon. There are nonspecific gaseous bowel loops and colon. There is no demonstrated free abdominal air. Normal soft tissue structures. There are diffuse degenerative changes of the visualized lumbar spine. RAD/Abd Inc Decub and/or Erect IMPRESSION: Fecal retention. Nonspecific gas pattern. Electronically Signed: Raji Gonzalez MD at 13:07 EDT Tel , Service support , CC: Ramone Smiley MD Steam Trap Man: Signed COMPREHENSIVE METABOLIC Collected: 05/07/2018 Status: F Source: JAQUELIN GRAVES 12:26 PM [facility] REPOSITORY TYPE CODE TESTS RESULT OUT OF RANGE REFERENCE UNITS LAB L501.0100 74-106 mg/dL High GLU 214 Result Comment: Glucose result greater than or equal to 200 mg/dL suggests DIABETES MELLITUS per A.D.A. criteria. Please note revised GLUCOSE reference range effective 2017. LAB L501.1000 7-18 mg/dL Normal BUN 15 LAB L501.1100 0.55-1.02 mg/dL Normal CREAT,SERUM 0.86 Result Comment: The validity of the calculated GFR AND GFRAA in patients over 70 years has not been determined. Clinical correlation is essential. LAB L501.1110 >60 mL/min Normal EST GFR 68 Result Comment: Non- GFR Calc LAB L501.1115 >60 mL/min Normal EST GFR - AA 83 Result Comment: GFR Calc LAB L501.1300 10-20 RATIO Normal BUN/CRE 17.4 LAB L501.1500 6.4-8.2 g/dL T Normal PROT 8.1 LAB L501.1800 3.2-5.0 g/dL Low ALB 2.9 LAB L501.1950 2.2-4.2 g/dL High GLOB 5.2 LAB L501.2000 0.9-2.4 RATIO Low A/G 0.6 LAB L501.2200 8.5-10.1 mg/dL CA Normal 10.1 LAB L501.4100 15-37 U/L Normal AST 29 LAB L501.4305 45-117 U/L Normal ALK P 114 LAB L501.4405 13-56 U/L Normal ALT 28 LAB L501.4600 0.20-1.00 mg/dL T Normal BILI 0.20 LAB L501.5300 136-145 mmol/L Low NA 134 LAB L501.5600 3.5-5.1 mmol/L K Normal 4.0 LAB L501.5900 98-107 mmol/L Low CL 96 LAB L501.6100 21.0-32.0 mmol/L Normal CO2 29.0 LAB L501.6200 5-15 Normal GAP 9 Performed By: #### L500.4050, L501.6710, L501.9520 #### [facility] [address] [facility] [place], [address] CRP Collected: 05/07/2018 Status: F Source: PERU 12:26 PM [facility] REPOSITORY TYPE CODE TESTS RESULT OUT OF RANGE REFERENCE UNITS LAB L501.6710 0.0-3.0 mg/L High 15.80 C-REACTIVE PROT Result Comment: C-Reactive Protein (CRP) provides useful information for the diagnosis, therapy and monitoring of inflammatory processes and associated diseases. For the evaluation of Relative Risk for Cardiovascular Disease, a High Sensitivity CRP (HSCRP) should be ordered. Performed By: #### L500.4050, L501.6710, L501.9520 #### [facility] [address] [facility] [place], [address] THYROID STIM HORMONE Collected: 05/07/2018 Status: F Source: PERU (TSH) 12:26 PM [facility] REPOSITORY TYPE CODE TESTS RESULT OUT OF RANGE REFERENCE UNITS LAB L501.9520 0.358-3.74 uIU/mL Normal TSH 0.64 Performed By: #### L500.4050, L501.6710, L501.9520 #### [facility] [address] [facility] [place], [address] CBC W/DIFF, AUTOMATED Collected: 05/07/2018 Status: F Source: PERU 12:26 PM [facility] REPOSITORY TYPE CODE TESTS RESULT OUT OF RANGE REFERENCE UNITS LAB L100.1000 4.4-11.0 K/mm3 Normal WBC 7.9 LAB L100.1200 4.2-5.4 M/mm3 Low RBC 3.99 LAB L100.1300 12.0-15.0 g/dl Low HGB 7.3 LAB L100.1400 37-47 % Low HCT 26.0 LAB L100.1500 81-99 fL Low MCV 65.2 LAB L100.1600 27.0-32.0 pg Low MCH 18.3 LAB L100.1700 32-36 g/gl Low MCHC 28.1 LAB L100.1810 11.6-14.6 % High RDW CV 20.8 LAB L100.1820 35.1-43.9 fl High RDW SD 48.8 LAB L100.1900 150-450 K/mm3 Normal PLT 345 LAB L100.2000 6.2-12.0 fl Normal MPV 10.0 LAB L100.2100 47-70 % Normal NEUT% 55.0 LAB L100.2200 19-41 % Normal LY% 34.8 LAB L100.2300 0-10 % Normal MONO% 6.1 LAB L100.2400 0-5 % Normal EO% 3.7 LAB L100.2500 0-1 % Normal BASO% 0.4 LAB L100.2550 0.0-0.9 % Normal IM GRAN % 0.000 Result Comment: IG% - Immature Granulocytes (promyelocytes, myelocytes and metamyelocytes) > 1% indicates that a LEFT SHIFT is Present. LAB L100.2620 2.0-7.7 X10 3/uL Absolute Neut Normal 4.4 LAB L100.2720 0.83-4.51 X10 3/ul Absolute Lymph Normal 2.76 LAB L100.5500 ADEQ PLT EST Normal ADEQUATE LAB L100.7300 ANISO Normal 2+ LAB L100.7600 HYPOCHROMASIA Normal 2+ LAB L100.8600 TARGET CELLS Normal RARE Performed By: #### L100.0100, L101.9900 #### [facility] [address] [place], [address] ERYTHROCYTE SED RATE Collected: 05/07/2018 Status: F Source: PERU 12:26 PM [facility] REPOSITORY TYPE CODE TESTS RESULT OUT OF RANGE REFERENCE UNITS LAB L102.0000 0-30 mm/hr High SED RATE 84 Performed By: #### L100.0100, L101.9900 #### [facility] [address] [place], [address] LOWER EXT ARTERIAL Observed: 03/10/2018 Status: F Source: [facility] 11:30 AM [facility] REPOSITORY [facility] Cardiovascular Services [address] [place] [address] 03/10/18 1127 MR#: [id number] Acct: [id number] Name: OLGA DONALDSON Rep #: [id number] : 1945 73 From: Wellington Mullen MD Attending Dr: Wellington Mullen MD Status: REG CLI Ordering Dr: Date: 03/10/18 Location: CVS Sex: F AA Admitted: Arterial Study - Arterial Study Arterial Study: Date of scan 02/24/[address] Mullen History: Patient with claudication and atherosclerosis. History of diabetes hypertension hyperlipidemia. Interpretation: Right lower extremity appears normal pulsatile waveform from the thigh down to the calf ankle out to the digits duplex appears to be biphasic to almost triphasic waveform of the DP. RADHA of the PT is 0.52 of the DP is 0.92. Digit brachial index 0.39. With exercise he is patient was ambulated in the hallway slow-paced less than a minute had to stop secondary to weakness and shortness of breath post RADHA was 0.88. Left lower extremity normal pulsatile waveform down from the thigh down to the calf ankle out through the digits duplex appears to be near triphasic waveform the DP. RADHA 0.68 of the PT and 0.88 at the DP. After exercise after minute this was at 0.85. Impression: 1. No evidence of significant arterial occlusive disease of the right lower extremity with an RADHA 0.92 and no significant change with walking although was a limited walking study. 2. Left lower extremity with mild arterial occlusive disease at rest with an RADHA 0.88. Again a substandard ambulation but no change in the RADHA with this. 3. Bilateral small vessel disease with the digit brachial index 0.39 on the right 0.44 on the left 03/10/18 1130 <Electronically signed by Wellington Mullen MD> Date Wellington Mullen MD CC: Wellington Mullen MD; Ramone Smiley MD Date Dictated: 03/10/181126 Date Transcribed: 03/10/181126 Steam Trap Man: RENU Signed Observed: 01/18/2018 Status: F Source: [facility] CULTURE FUNGUS 3:30 PM SYSTEM REPOSITORY 1 Organism Nithya albicans Many Performed By: #### C/FUN, S/FUN #### [facility] [address] [place] [id number] Observed: 01/18/2018 Status: F Source: [facility] STAIN FUNGUS 3:30 PM SYSTEM REPOSITORY STAIN FUNGUS --> Status: F 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 Direct exam by Calcofluor stain. Direct exam by Calcofluor stain. Performed By: #### C/FUN, S/FUN #### [facility] [address] [place] [address] FINGER(S) MIN 2 VIEWS Observed: 01/11/2018 Status: F Source: [place] 6:40 PM [facility] REPOSITORY [facility] Imaging Services [address] [place] [address] Finger(s) Min 2 Views MR#: [id number] Acct: [id number] Name: OLGA DONALDSON Rep #: [id number] : 1945 F 73 From: Glenna Stein MD PCP: Ramone Smiley MD Status: REG CLI Study: Finger(s) Min 2 Views Date of Exam: 01/11/18 Exam# [id number] Ordering Dr: Ramone Smiley MD STUDY: X-RAY - RIGHT HAND, ATTENTION FIFTH FINGER REASON FOR EXAM: Female, 73 years old. 3 weeks ago right pinky started to get infected at the nail. Fingernail consecutively removed, continued to get infected, now lots of swelling and pus. Patient is diabetic. TECHNIQUE: 3 view(s) of the finger were obtained. COMPARISON: None. FINDINGS: Normal metacarpal head. Normal metacarpophalangeal joint. Normal proximal phalanx. Normal middle phalanx. Normal distal phalanx. Normal proximal interphalangeal joint. Normal distal interphalangeal joint. Soft tissue swelling and soft tissue irregularity. There may be air under the nailbed. RAD/Finger(s) Min 2 Views IMPRESSION: Signs of osteomyelitis detected. Soft tissues findings as above. Electronically Signed: Glenna Stein MD at 7:46 EDT , Service support , CC: Ramone Smiley MD Steam Trap Man: Signed CBC W/DIFF, AUTOMATED Collected: 01/11/2018 Status: F Source: [place] 6:29 PM [facility] REPOSITORY Order Comment: Order Date: 01/11/18 Order Info: [id number] - CBCD Order Info: 57338-2 - SED TYPE CODE TESTS RESULT OUT OF RANGE REFERENCE UNITS LAB L100.1000 4.4-11.0 K/mm3 Normal WBC 7.2 LAB L100.1200 4.2-5.4 M/mm3 Low RBC 3.96 LAB L100.1300 12.0-15.0 g/dl Low HGB 7.4 LAB L100.1400 37-47 % Low HCT 25.7 LAB L100.1500 81-99 fL Low MCV 64.9 LAB L100.1600 27.0-32.0 pg Low MCH 18.7 LAB L100.1700 32-36 g/gl Low MCHC 28.8 LAB L100.1810 11.6-14.6 % High RDW CV 20.5 LAB L100.1820 35.1-43.9 fl High RDW SD 48.3 LAB L100.1900 150-450 K/mm3 Normal PLT 313 LAB L100.2000 6.2-12.0 fl Normal MPV 9.4 LAB L100.2100 47-70 % Normal NEUT% 63.7 LAB L100.2200 19-41 % Normal LY% 26.3 LAB L100.2300 0-10 % Normal MONO% 7.2 LAB L100.2400 0-5 % Normal EO% 2.4 LAB L100.2500 0-1 % Normal BASO% 0.4 LAB L100.2550 0.0-0.9 % Normal IM GRAN % 0.000 Result Comment: IG% - Immature Granulocytes (promyelocytes, myelocytes and metamyelocytes) > 1% indicates that a LEFT SHIFT is Present. LAB L100.2620 2.0-7.7 X10 3/uL Absolute Neut Normal 4.6 LAB L100.2720 0.83-4.51 X10 3/ul Absolute Lymph Normal 1.89 LAB L100.5500 ADEQ PLT EST Normal ADEQUATE LAB L100.7300 ANISO Normal 1+ LAB L100.7500 POLYCHROMASIA Normal 1+ LAB L100.7600 HYPOCHROMASIA Normal 1+ LAB L100.7700 MICROCYTES Normal 1+ Performed By: #### L100.0100, L500.4050, L501.1400, L101.9900 #### [facility] [address] [place], [address] COMPREHENSIVE METABOLIC Collected: 01/11/2018 Status: F Source: [place] GRAVES 6:29 PM [facility] REPOSITORY Order Comment: Order Date: 01/11/18 Order Info: [id number] - CMP Order Info: 3084-1 - URIC TYPE CODE TESTS RESULT OUT OF RANGE REFERENCE UNITS LAB L501.0100 74-106 mg/dL High GLU 407 Result Comment: Glucose result greater than or equal to 200 mg/dL suggests DIABETES MELLITUS per A.D.A. criteria. Please note revised GLUCOSE reference range effective 2017. LAB L501.1000 7-18 mg/dL Normal BUN 15 LAB L501.1100 0.55-1.02 mg/dL Normal CREAT,SERUM 1.00 Result Comment: The validity of the calculated GFR AND GFRAA in patients over 70 years has not been determined. Clinical correlation is essential. LAB L501.1110 >60 mL/min Low EST GFR 58 Result Comment: Non- GFR Calc LAB L501.1115 >60 mL/min Normal EST GFR - AA 70 Result Comment: GFR Calc LAB L501.1300 10-20 RATIO Normal BUN/CRE 15.0 LAB L501.1500 6.4-8.2 g/dL T Normal PROT 8.1 LAB L501.1800 3.2-5.0 g/dL Low ALB 2.9 LAB L501.1950 2.2-4.2 g/dL High GLOB 5.2 LAB L501.2000 0.9-2.4 RATIO Low A/G 0.6 LAB L501.2200 8.5-10.1 mg/dL High CA 10.5 LAB L501.4100 15-37 U/L Low AST 14 LAB L501.4305 45-117 U/L High ALK P 120 LAB L501.4405 13-56 U/L Normal ALT 19 LAB L501.4600 0.20-1.00 mg/dL Low T BILI 0.10 LAB L501.5300 136-145 mmol/L Low NA 132 LAB L501.5600 3.5-5.1 mmol/L K Normal 3.8 LAB L501.5900 98-107 mmol/L Low CL 97 LAB L501.6100 21.0-32.0 mmol/L Normal CO2 27.0 LAB L501.6200 5-15 Normal GAP 8 Performed By: #### L100.0100, L500.4050, L501.1400, L101.9900 #### [facility] [address] [place], [address] URIC ACID Collected: 01/11/2018 Status: F Source: PERU 6:29 PM [facility] REPOSITORY Order Comment: Order Date: 01/11/18 Order Info: [id number] - CMP Order Info: 3084-1 - URIC TYPE CODE TESTS RESULT OUT OF RANGE REFERENCE UNITS LAB L501.1400 2.6-6.0 mg/dL Normal URIC 5.1 Result Comment: The drugs N-Acetylcysteine and Metamizole may falsely depress this assay. Performed By: #### L100.0100, L500.4050, L501.1400, L101.9900 #### [facility] [address] [place], [address] ERYTHROCYTE SED RATE Collected: 01/11/2018 Status: F Source: PERU 6:29 PM [facility] REPOSITORY Order Comment: Order Date: 01/11/18 Order Info: [id number] - CBCD Order Info: 43263-5 - SED TYPE CODE TESTS RESULT OUT OF RANGE REFERENCE UNITS LAB L102.0000 0-30 mm/hr High SED RATE > 130 Performed By: #### L100.0100, L500.4050, L501.1400, L101.9900 #### [facility] [address] [place], [address] Observed: 10/21/2017 Status: F Source: JAQUELIN CULTURE, WOUND 11:45 AM [facility] REPOSITORY Comments: R 4TH PARONYCHIA Gram Stain Gram Stain 1+ Red Blood Cells Rare Epithelial cells 4+ Gram positive cocci in chains Rare Yeast Like Organisms Rare Gram negative rods Wound Culture ORGANISM 1: Streptococcus agalactiae (B) Amount Growth 3+ ORGANISM 2: Klebsiella pneumoniae sp pneum Amount Growth 2+ Streptococcus agalactiae (B): REACTION Ampicillin $ <=0.25 S Benzylpenicillin NF <=0.06 S Ceftriaxone $ <=0.12 S Clindamycin $$ <=0.25 R Inducable Clindamycin Resistan + Linezolid $$$$ <=2 S Vancomycin $ 0.5 S (NF) indicates non-formulary drug at [facility]. Approval by Infectious Disease Specialist required before non-formulary drugs may be ordered and/or dispensed. * CLSI guidelines does not recommend testing of cephalosporins. This interpretation is deduced from Beta-lactam/penicillin results. Klebsiella pneumoniae sp pneum: REACTION Amoxacillin/Clavulanic Acid $ <=2 S Ampicillin $ 16 R Ampicillin/Sulbactam $ 4 S Cefazolin $ <=4 S Cefepime $ <=1 S Ceftriaxone $ <=1 S Ciprofloxacin $ <=0.25 S ESBL - Ertapenim $$$ <=0.5 S Gentamicin $ <=1 S Imipenem *NF <=0.25 S Levofloxacin $ <=0.12 S Piperacillin/Tazobactam $$ <=4 S Tobramycin $ <=1 S Trimethoprim/Sulfametho $ <=20 S (NF) indicates non-formulary drug at [facility]. Approval by Infectious Disease Specialist required before non-formulary drugs may be ordered and/or dispensed. Performed By: #### M100.1400 #### [facility] [address] [place], [place] [address], [address] ALLERGIES ALLERGIES DATE TYPE / CODE NAME / CODE REACTION SEVERITY SOURCE Drug cephalexin Rash Unknown [place] Allergy/710130675( monohydrate/F000 [facility]) 862079(RXNORM) Hospital Repository Drug clopidogrel Other Unknown [place] Allergy/848085402( bisulfate/Y83102 [facility]) 7364(RXNORM) Hospital Repository Drug amoxicillin/F006 YEAST Unknown [place] Allergy/515888999( 777643(RXNORM) INFECTION [facility] SNOMED CT) Hospital Repository Miscellaneous cloth tap Other Unknown [place] 9 Allergy/125441740( [facility] SNOMED CT) Hospital Repository ENCOUNTERS ENCOUNTERS ADMIT/DISCHARGE ACCOUNT NUMBER ADMITTING ENCOUNTER LOCATION SOURCE CLASS 09/19/2018/09/19/19 [id number] Emergency Ja[facility]elin Jaquelin 19 [facility] ding:ED Repository 08/14/2018/08/20/20 [id number] [place], Inpatient [place] Jaquelin 18 Shakira Encounter [facility] ding:SA4Mqah Repository : QR462Ods: 1 08/14/2018 [id number] [place], Ambulatory BMSBuilding: Jaquelin Shakira BMS.[facility] Repository 08/14/2018 [id number] [place], Ambulatory BMSBuilding: Jaquelin Shakira BMS.[facility] Repository 08/14/2018 [id number] [place], Ambulatory BMSBuilding: [place] BMS.[facility] Repository 08/14/2018 [id number] [place], Ambulatory BMSBuilding: Jaquelin [place]akira BMS.[facility] Repository 08/14/2018 [id number] [place], Ambulatory BMSBuilding: [place] BMS.[facility] Repository 08/14/2018 [id number] [place], Ambulatory BMSBuilding: Jaquelin Shakira BMS.[facility] Repository 08/14/2018 [id number] [place], Ambulatory BMSBuilding: [place] BMS.[facility] Repository 08/14/2018 [id number] [place], Ambulatory BMSBuilding: Jaquelin Shakira BMS.[facility] Repository 08/14/2018 [id number] [place], Ambulatory BMSBuilding: [place] BMS.[facility] Repository 08/14/2018 [id number] [place]i, Ambulatory BMSBuilding: Jaquelin Shakira BMS..[facility] Repository 08/14/2018 [id number] [place], Ambulatory BMSBuilding: Jaquelin [place] BMS.[facility] Repository 08/14/2018 [id number] [place]i, Ambulatory BMSBuilding: [place] BMS.[facility] Repository 08/14/2018/08/20/20 [id number] Ambulatory BMSBuilding: Jaquelin 18 [facility] Hospital Repository 08/12/2018 [id number] Ambulatory [facility] ding:LABSPEC Repository 07/04/2018/07/04/20 [id number] Emergency [place] ding:ED Repository 06/25/2018/06/25/20 [id number] Emergency [place] [address] ding:ED Repository 06/25/2018 [id number] Ambulatory [facility] ding:CT Repository 06/14/2018 [id number] Ambulatory [facility] ding:MTLAB Repository 05/07/2018 [id number] Ambulatory [facility] ding:MTRAD Repository 05/07/2018 [id number] Ambulatory [facility] ding:MTRAD Repository 02/24/2018 [id number] Ambulatory [facility] ding:CVS Repository 01/27/2018 [id number] Ambulatory BMSBuilding: [place] BMS.[facility] Repository 01/18/2018 [id number] Ambulatory [facility] Repository 01/11/2018 [id number] Ambulatory [facility] ding:LAB Repository 10/22/2017 [id number] Ambulatory [facility] ding:LABSPEC Repository PAYERS PAYERS ENCOUNTER GUARANTOR PAYER SUBSCRIBER SOURCE 09/19/2018 OLGA Primary OLGA [place] [id number] NOLD Insurance:[place] PPOPolicy [id number] [id number]: (330) Number: Repository [phone] HP [id number] Date:[id number] [address] [place] [id number]: 09/19/2018 Secondary NOT GIVENUNK Jaquelin Insurance:SELF PAY [facility] Number: Effective Repository Date:2018-09-19 08/14/2018 OLGA Primary [place]GA [place] [id number] NOLD Insurance:HUMANA [place]: [place] PPOP[place]icy [id number] [address]Dxd: (330) Number: Repository [phone] () [id number] Date:8930-43-91BH [address]46[address]WP: 08/14/2018 Secondary NOT GIVENUNK [place] Insurance:SELF PAY [facility] Number: Effective Repository Date:2018-08-14 08/14/2018 OLGA Primary OLGA [place] [id number] NOLD Insurance:HUMANA G[place]OB[place] PP[place]icy [id number] [address]Ady: (330) Number: Repository [phone] () [id number] Date:2091-48-39RR [address]4601WP: 08/14/2018 Secondary NOT GIVENUNK [place] Insurance:SELF PAY [facility] Number: Effective Repository Date:2018-08-14 08/14/2018 OLGA Primary OLGA [place] [id number] NOLD Insurance:HUMANA [place]OB[place] PP[place] [id number] [place] [address]Aqr: (330) Number: Repository [phone] () [id number] Date:2732-66-62JI[address] [address]IE: 08/14/2018 Secondary NOT GIVENUNK [place] Insurance:SELF PAY [facility] Number: Effective Repository Date:2018-08-14 08/14/2018 OLGA Primary [place] [id number] NOLD Insurance:HUMANA [place]OB[place] [id number] [place] [address]Wfx: (330) Number: Repository [phone] () [id number] Date:1623-58-74ME [address] [address]LY: 08/14/2018 Secondary NOT GIVENUNK [place] Insurance:SELF PAY [facility] Number: Effective Repository Date:2018-08-14 08/14/2018 OLGA Primary [place] [id number] NOLD Insurance:HUMANA [place]OB[place] [id number] [address]Kyh: (330) Number: Repository [phone] () [id number] Date:8999-28-18WO [address] [address]PK: 08/14/2018 Secondary NOT GIVENUNK [place] Insurance:SELF PAY [facility] Number: Effective Repository Date:2018-08-14 08/14/2018 OLGA Primary OL[place] [id number] NOLD Insurance:HUMANA [place]OB[place] [id number] [address]Tap: (330) Number: Repository [phone] () [id number] Date:2020-81-14NF [address] [address]UN: 08/14/2018 Secondary NOT GIVENUNK [place] Insurance:SELF PAY [facility] Number: Effective Repository Date:2018-08-14 08/14/2018 OLGA Primary OLGA [place] [id number] NOLD Insurance:HUMANA [place]OB[place] [id number] [address]Hos: (330) Number: Repository [phone] () [id number] Date:1811-68-68EP [address] [address]ZW: 08/14/2018 Secondary NOT GIVENUNK [place] Insurance:SELF PAY [facility] Number: Effective Repository Date:2018-08-14 08/14/2018 OLGA Primary OLGA [place] [id number] NOLD Insurance:HUMANA [place]OB[place] [id number] [address]Joj: (330) Number: Repository [phone] () [id number] Date:3989-82-53WC [address] [address]XF: 08/14/2018 Secondary NOT GIVENUNK [place] Insurance:SELF PAY [facility] Number: Effective Repository Date:2018-08-14 08/14/2018 OLGA Primary OLGA [place] [id number] NOLD Insurance:HUMANA GAD[place]OB[place] [id number] [address]Tel: (330) Number: Repository [phone] () [id number] Date:4216-99-77VY [place] [address]WP: 08/14/2018 Secondary NOT GIVENUNK [place] Insurance:SELF PAY [facility] Number: Effective Repository Date:2018-08-14 08/14/2018 OLGA Primary OLGA [place] [id number] N[place] Insurance:HUMANA GADSDENDOB[place] [id number] [place] [id number]: (330) Number: Repository [phone] () [id number] Date:7927-26-05TN [place] [address]WP: 08/14/2018 Secondary NOT GIVENUNK [place] Insurance:SELF PAY [facility] Number: Effective Repository Date:2018-08-14 08/14/2018 OLGA Primary OL[place] [id number] NOLD Insurance:HUMANA GAD[place]ENDOB[place] [id number] [address]Bnw: (330) Number: Repository [phone] () [id number] Date:4889-62-41[place] [address]WP: 08/14/2018 Secondary NOT GIVENUNK [place] Insurance:SELF PAY [facility] Number: Effective Repository Date:2018-08-14 08/14/2018 OLGA Primary OL[place] [id number] NOLD Insurance:HUMANA GADSDENDOB[place] [id number] [address]Gnd: (330) Number: Repository [phone] () [id number] Date:2003-66-18OI [address] [address]NG: 08/14/2018 Secondary NOT GIVENUNK [place] Insurance:SELF PAY [facility] Number: Effective Repository Date:2018-08-14 08/14/2018 OLGA Primary OLGA [place] [id number] NOLD Insurance:HUMANA GADSDENDOB[place] [id number] [address]Toz: (330) Number: Repository [phone] () [id number] Date:6851-16-18BL[address] [address]IV: 08/14/2018 Secondary NOT GIVENUNK [place] Insurance:SELF PAY [facility] Number: Effective Repository Date:2018-08-14 08/14/2018 OLGA Primary OLGA [place] [id number] NOLD Insurance:HUMANA GADSDENDOB[place] [id number] [address]Xob: (330) Number: Repository [phone] () [id number] Date:1341-41-25QQ [address] [address]HR: 08/14/2018 Secondary NOT GIVENUNK [place] Insurance:SELF PAY [facility] Number: Effective Repository Date:2018-08-14 08/12/2018 OLGA Primary [place] [id number] NOLD Insurance:HUMANA GADSDENDOB[place] [id number] [address]Cpb: (330) Number: Repository [phone] () [id number] Date:5240-90-76OI [place] [address]WP: 08/12/2018 Secondary NOT GIVENUNK [place] Insurance:SELF PAY [facility] Number: Effective Repository Date:2018-08-12 07/04/2018 OLGA Primary OLGA [place] [id number] NOLD Insurance:HUMANA [place]AD[place]OB[place] [id number] Hospital [address]Gzn: (330) Number: Repository [phone] () [id number] Date:0986-54-41VO [address]4601WP: 07/04/2018 Secondary NOT GIVENUNK [place] Insurance:SELF PAY [facility] Number: Effective Repository Date:2018-07-04 06/25/2018 OLGA Primary OLGA [place] [id number] NOLD Insurance:HUMANA GADSDENDOB[place] [id number] [place] [address]Xjl: (330) Number: Repository [phone] () [id number] Date:4592-44-16RQ [address] [address]CX: 06/25/2018 Secondary NOT GIVENUNK [place] Insurance:SELF PAY [facility] Number: Effective Repository Date:2018-06-25 06/25/2018 OLGA Primary OLGA [place] [id number] NOLD Insurance:HUMANA GADSDENDOB: [facility] [place]OP[place] [id number] [place] [address]Vxn: (330) Number: Repository [phone] () [id number] Date:1462-90-64IT [address] [address]KE: 06/25/2018 Secondary NOT GIVENUNK [place] Insurance:SELF PAY [facility] Number: Effective Repository Date:2018-06-17 06/14/2018 Olga Primary Olga [place] [id number] Nold Insurance:HUMANA GadsdenDOB: [place] [id number] [address]Qok: (330) Number: Repository [phone] () [id number] Date:2866-95-11SN[address]46[address]WP: 06/14/2018 Secondary NOT GIVENUNK [place] Insurance:SELF PAY [facility] Number: Effective Repository Date:2018-06-14 05/07/2018 Olga Primary Olga [place] [id number] [place] Insurance:HUMANA GadsdenDOB: [place] [id number] [place] [id number]: (330) Number: Repository [phone] () [id number] Date:6371-25-71[place] [address]WP: 05/07/2018 Secondary NOT GIVENUNK [place] Insurance:SELF PAY [facility] Number: Effective Repository Date:2018-05-07 05/07/2018 Olga Primary [place] [id number] [place] Insurance:HUMANA GadsdenDOB: [place] [id number] [place] [id number]: (330) Number: Repository [phone] () [id number] Date:0892-61-68KV [address]4601WP: 05/07/2018 Secondary NOT GIVENUNK [place] Insurance:SELF PAY [facility] Number: Effective Repository Date:2018-05-07 02/24/2018 Olga Primary Olga [place] [id number] [place] Insurance:HUMANA G[place]denDOB: [place] [id number] [address]Uzg: (330) Number: Repository [phone] () [id number] Date:2559-59-38[place] [address]WP: 02/24/2018 Secondary NOT GIVENUNK [place] Insurance:SELF PAY [facility] Number: Effective Repository Date:2018-01-26 01/27/2018 Olga Primary Olga [place] [id number] [place] Insurance:HUMANA G[place]denDOB: [place] [id number] Hospital [address]Bpc: (330) Number: Repository [phone] () [id number] Date:9221-38-13DA [address] [address]ZC: 01/27/2018 Secondary NOT GIVENUNK [place] Insurance:SELF PAY [facility] Number: Effective Repository Date:2018-01-12 01/18/2018 olga [facility] gadsdenD[facility] Insurance:HumanaPolic gadsdenDOB: System y Number: Effective [id number] Repository [facility], Date: [facility]Ewz: () 01/11/2018 Olga Primary [place] [id number] [place] Insurance:HUMANA [place]DOB: [place] [id number] Hospital [address]Egu: (330) Number: Repository [phone] () [id number] Date:8307-82-24CN [address]46[address]WP: 01/11/2018 Secondary NOT GIVENUNK [place] Insurance:SELF PAY [facility] Number: Effective Repository Date:2018-01-11 10/22/2017 Olga Primary Olga [place] [id number] [place] Insurance:HUMANA GadsdenDOB: [place] [id number] Hospital [address]Xrx: (330) Number: Repository [phone] () [id number] Date:1351-24-96JBMELISSA [place] [address]WP: 10/22/2017 Secondary NOT GIVENUNK [place] Insurance:SELF PAY [facility]: Effective Repository Date:2017-10-22
== END ==
PROVIDERS: Family Provider Family Medicine; PCP Family Medicine; Referring Provider Nurse Practitioner Adult Health; Visit Provider Nurse Practitioner Adult Health
DX: R30.0 Dysuria (principal)
CPT/HCPCS: 87086; 87088

== ENCOUNTER 2018-08-14 13:41 | Inpatient (IN) | payer MEDICARE, SELFPAY ==
[2018-08-14] VITALS (10 sets, daily range): BP systolic 82–126; BP diastolic 35–80; PULSE 69–83; RESP 14–18; TEMP 36.5–37; O2SAT 95–100; BMI 30.6
[2018-08-14 14:41] LABS: Absolute Lymphocyte Count 3.18 X10^3/ul (0.83-4.51); Basophil# 0.04 X10^3/uL; Basophil% 0.4 % (0-1); Eosinophil# 0.45 X10^3/uL; Eosinophils% 4.3 % (0-5); Hematocrit 27.4 % (37-47); Hemoglobin 7.6 g/dl (12.0-15.0); Lymphocyte # 3.18 X10^3/ul (4.0); Lymphocyte % 30.7 % (19-41); Mean Corp Hgb Conc 27.7 g/gl (32-36); Mean Corpuscular Hgb 17.4 pg (27.0-32.0); Mean Corpuscular Volume 62.7 fL (81-99); Monocyte# 0.68 X10^3/uL; Monocyte% 6.6 % (0-10); Neutrophil # 5.98 X10^3/uL (2.7-7.7); Neutrophil % 57.7 % (47-70); Platelet Count 424 K/mm3 (150-450); RBC Distribution Width CV 20.8 % (11.6-14.6); RBC Distribution Width SD 47.5 fl (35.1-43.9); Red Blood Count 4.37 M/mm3 (4.2-5.4); White Blood Count 10.4 K/mm3 (4.4-11.0)
[2018-08-14 14:46] LABS: Differential Indicated SCAN CRITERIA MET; POSITIVE COUNT NO; POSITIVE DIFFERENTIAL NO; POSITIVE MORPHOLOGY YES
[2018-08-14 14:51] LABS: Anion Gap 10 (5-15); BUN 25 mg/dL (7-18); BUN/Creat Ratio 15.3 RATIO (10-20); Calcium,Total 10.5 mg/dL (8.5-10.1); Chloride 91 mmol/L (98-107); Creatinine, Serum 1.63 mg/dL (0.55-1.02); EST Glomerular Filtration Rate 33 mL/min (>60); Est Glom Filt Rate - Afr Amer 40 mL/min (>60); Estimated Creatinine Clearance 25.05 ml/min; Glucose 371 mg/dL (74-106); Potassium 4.8 mmol/L (3.5-5.1); Sodium Level 126 mmol/L (136-145)
[2018-08-14 15:04] LABS: Anisocytosis 2+; Hypochromasia 2+; Microcytosis 2+; Platelet Estimate ADEQUATE (ADEQ); Platelet Morphology LARGE; Polychromasia 1+
[2018-08-14] MEDS: 0.9% Normal Saline 1,000 ML 150 ML IV ×2 (15:34→20:21)
--- NOTE | 2018-08-14 15:52 | CT_ITS ---
STUDY: CT ABDOMEN AND PELVIS WITHOUT CONTRAST REASON FOR EXAM: Female, 73 years old. Vomiting with diminished urinary output RADIATION DOSAGE (If Supplied By Facility): CTDIvol = ( 8.03 ) mGy, DLP = ( 411.32 ) mGycm TECHNIQUE: Transaxial images were obtained from the dome of the diaphragm to the symphysis pubis without oral contrast, and without intravenous contrast. Sagittal and coronal images were reconstructed. Individualized dose optimization techniques were used for this CT. COMPARISON: None. FINDINGS: The visualized lung bases are unremarkable. The visualized portions of the heart are within normal limits. Normal liver. Normal gallbladder and extrahepatic biliary system. Normal spleen. Normal pancreas. Normal bilateral adrenal glands. Normal right kidney. Normal left kidney. Normal visualized stomach. Normal small intestine. Persistent severe fecal retention involving the rectosigmoid colon, particularly in the rectal vault. Mild amount of perirectal stranding identified but no stacie rectal wall disruption or pneumoperitoneum. Less severe fecal retention noted throughout the colon in all colonic segments. There is non-visualization of the appendix. There is diffuse atherosclerotic calcification of the abdominal aorta, without a demonstrated aneurysm. Small caliber infrarenal abdominal aorta suggestive of lower aortic stenosis, stable. Normal inferior vena cava. Normal retroperitoneum. The urinary bladder is decompressed by a Serna catheter. Evaluation of the urinary bladder wall is limited given lack of distention. Urinary bladder wall thickening possible. Uterine calcifications may represent uterine fibroids. Normal abdominal wall. There are diffuse degenerative changes of the visualized lumbar spine. Canal stenosis identified at L3-L4 and L4-L5. CT/Abdomen/Pelvis without Cont IMPRESSION: 1. No hydronephrosis. 2. Decompressed urinary bladder by Serna catheter as compared to the prior study. Urinary bladder wall thickening cannot be excluded on this exam. 3. 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 Stercoral proctitis is possible. No pneumoperitoneum or ulceration. Increased since prior study. 4. Additional stable chronic changes, as above. Electronically Signed: Zechariah Redmond MD at 17:26 EST , Service support ,
[2018-08-14] MEDS: Ondansetron 4 MG/2 ML Vial IV (15:57)
--- NOTE | 2018-08-14 16:15 | ED.DCSUM_ITS ---
- ER Visit Summary Date of Service: 08/14/18 Chief Complaint: [Decreased urine output and dizziness] History of Present Illness: The patient is a 73 F [presents the emergency department complaint of decreased urine output since last evening. Patient states that she had a Serna catheter placed 2 days ago for urinary retention. Patient was started on antibiotics. Patient has been feeling dizzy for the last several days. She describes some abdominal pressure but no fever. She has had no vomiting. She said no diarrhea. Last bowel movement was 2 days ago. Patient has a history of asthma, COPD, diabetes, hypertension, constipation, and DVT history] Physical Examination: [HEENT-PERRLA, EOMI. Cranial nerves II through XII grossly intact. TMs clear. Mucous membranes moist. No adenopathy. Cardiovascular-regular rate and rhythm without murmur or ectopy Lungs-clear to auscultation, chest wall stable without crepitus or subcu emphysema Abdomen-normoactive bowel sounds, soft, nontender, no rebound or rigidity, no peritoneal signs. Extremities-intact ?4, normal range of motion, normal pulses, atraumatic] Test Results: [CBC with differential obtained showed a white count of 10.4, hemoglobin 7.6, hematocrit 27, platelets 421. Chemistries showed a sodium of 126, potassium 4.8, chloride 91, CO2 25, BUN 25, creatinine 1.63. Urinalysis ordered and pending. CT scan of the abdomen pelvis ordered after discussion with hospitalist and is pending.] Emergency Department Course and Treatment: [Patient was given IV normal saline a liter bolus. Patient did have some emesis in the department and was given Zofran 4 mg IV. Patient's blood pressure continues to be in the 90s.] On arrival patient had a bladder scan performed and only showed 100 cc of urine. Patient had a new Serna catheter placed. Treatment Plan: [Admit for further workup and evaluation] Disposition: [Admit] Impression: [Acute kidney injury Hyponatremia Anemia-chronic Dizziness] This note was generated with [employer] dictation software. It may contain incorrect words, spelling, and punctuation that were not noted in review of the chart prior to signing ED Disposition - Plan for ED Patient: Chief Complaint: Complaint Referrals: Ramone Smiley MD [Primary Care Provider] -
--- NOTE | 2018-08-14 16:21 | NURSING ---
124 LIA, ANEMIA, HYPONATREMIA, DEHYDRATION KOTSOINIS
[2018-08-14 16:30] LABS: Mucous, Urine 0 SEEN /hpf (<or=2+)
[2018-08-14 16:45] LABS: Color, Urine Yellow (Yellow); Glucose, Dipstick 100 mg/dl (Normal); Ketone-Dipstick Negative (Negative); Leukocyte Esterase-Dipstick 500 /ul (Negative); Nitrite-Dipstick Negative (Negative); Occult Blood-Urine 150 /ul (Negative); Protein-Dipstick 500 mg/dl (Negative); Specific Gravity, Urine 1.015 (1.002-1.030); Urine Bilirubin Dipstick Negative (Negative); Urine Clarity Cloudy (Clear); Urine Urobilinogen Normal (Normal); Urine pH 6.5 (5.0 - 8.0)
--- NOTE | 2018-08-14 16:52 | NURSING ---
DR GARY IN ER
[2018-08-14 17:14] LABS: White Blood Cells 50-100 SEEN /hpf (0-5)
[2018-08-14 17:15] LABS: Squamous Epithelial Cells - UA 0-5 SEEN /hpf (5-10)
[2018-08-14 17:16] LABS: Yeast-Urine RARE /hpf (None Seen)
[2018-08-14 17:17] LABS: Transitional Epithelial - Ur 5-10 SEEN /hpf (0-5)
[2018-08-14 17:21] LABS: Amorphous Sediment 2+; Bacteria 2+ /hpf (None Seen); Red Blood Cells-Urine 50-100 SEEN /hpf (0-5)
--- NOTE | 2018-08-14 17:28 | HP.PCM_ITS ---
Problem List (1) Acute renal failure Status: Acute (2) Chronic renal failure, stage 3 (moderate) Status: Chronic (3) COPD (chronic obstructive pulmonary disease) Status: Chronic (4) History of constipation Status: Chronic (5) Hx of venous thrombosis and embolism Status: Chronic (6) History of malignant neoplasm of breast Status: Chronic (7) Tobacco use Status: Chronic (8) Hypertension Status: Chronic (9) Type 2 diabetes mellitus Status: Chronic (10) Asthma Status: Chronic (11) Microcytic anemia Status: Chronic (12) Urine retention Status: Chronic (13) Hyponatremia Status: Acute (14) Aortic stenosis Status: Chronic Comment: valve area in 2015 was 1.7cm2 History of Present Illness Date of Admission: 08/14/18 Chief Complaint: lightheadedness, suprapubic pain The patient is a 73 year old F with a past medical history of hypertension, COPD, breast cancer, CRF stage III, microcytic anemia, VTE, tobacco dependence and DM II who presented to the ED at [facility] on 08/14/2018 complaining of nausea, vomiting and decreased OP from a mccall catheter placed in Dr. Edmondson's office on . UA done at that time grew only yeast. Vital signs at presentation to the emergency room were temperature 97.8, pulse rate 73, blood pressure 103/35, respiratory rate 16 and she is 95-98% saturated on room air. White blood cell count is 10.4 with an unremarkable differential. Hemoglobin is 7.6 with an MCV of 62.7 and this has been declining over the past 2 years. Platelets are 424,000. Sodium was low at 126 and the chloride is low at 91. Potassium is 4.8 and the BUN is 25 with a creatinine of 1.63, up from 0.78 in May 2018. Random blood sugar is 371 and the calcium is increased to 10.5, likely secondary to dehydration. There is a very small amount of urine from the mccall at this time and it is brownish in color. She denies any fevers/chills. A noncontrasted CT of the abdomen and pelvis showed no hydronephrosis with a decompressed urinary bladder by a Mccall catheter. There is thickening of the urinary bladder wall and severe rectosigmoid fecal retention. She is being admitted to the hospital with a dx of acute kidney injury on CRF stage 3 and fecal retention with N/V. Past Medical History Past Medical History (Chronic Problems): Chronic Problems (Last Reviewed 08/14/18 @ 17:39 by Connor Skaggs DO) Chronic renal failure, stage 3 (moderate) (Chronic) Microcytic anemia (Chronic) Urine retention (Chronic) Aortic stenosis (Chronic) valve area in 2015 was 1.7cm2 COPD (chronic obstructive pulmonary disease) (Chronic) History of constipation (Chronic) Hx of venous thrombosis and embolism (Chronic) History of malignant neoplasm of breast (Chronic) Tobacco use (Chronic) Hypertension (Chronic) Type 2 diabetes mellitus (Chronic) Asthma (Chronic) Medical History: Medical History (Last Reviewed 08/14/18 @ 17:39 by Connor Skaggs DO) Anemia D64.9 Asthma J45.909 COPD (chronic obstructive pulmonary disease) J44.9 Carpal tunnel syndrome of right wrist G56.01 Cellulitis and abscess of finger, unspecified L03.019, L02.519 Chronic idiopathic constipation K59.04 Diabetes E11.9 GERD (gastroesophageal reflux disease) K21.9 Goiter, nontoxic, 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 Hypercholesteremia E78.00 Leg weakness, bilateral R29.898 Peripheral artery disease I73.9 Polypharmacy Z79.899 Pruritus L29.9 Retinopathy H35.00 Rhinitis J31.0 Strain of right rotator cuff capsule S46.011A Urinary retention with incomplete bladder emptying R33.9 Vitamin D deficiency E55.9 Hypertension I10 Allergies amoxicillin Allergy (Verified 08/14/18 13:44) YEAST INFECTION cephalexin monohydrate [From Keflex] Allergy (Verified 08/14/18 13:44) Rash clopidogrel bisulfate [From Plavix] Allergy (Verified 08/14/18 13:44) Other cloth tap Allergy (Uncoded 08/14/18 13:44) Other Home Medications: Ambulatory Orders Medication Instructions Recorded Coconut Oil/Beeswax/Safflower [Lip 90 gm TP DAILY 12/25/14 [employer]] Cod Liver Oil 1 ea PO DAILY 12/25/14 Lisinopril [Zestril] 40 mg PO DAILY 12/25/14 Aspirin [Aspirin, Baby] 81 mg PO DAILY@0800 01/21/16 Astepro 01/21/16 Bisacodyl [Dulcolax] 5 mg PO DAILY PRN 01/21/16 Calcium Carbonate [Calcium] 600 mg PO DAILY 01/21/16 Diltiazem HCl [Diltiazem 24Hr Cd] 180 mg PO QHS 01/21/16 Multivitamin [Daily Multiple 1 ea PO DAILY 01/21/16 Vitamin] Pravastatin Sodium [Pravachol] 20 mg PO QHS 01/21/16 Psyllium [Metamucil] 1 packet PO TID 01/21/16 Ranitidine HCl [Zantac 75] 300 mg PO DINNER 01/21/16 Sitagliptin Phosphate [Januvia] 50 mg PO DAILY 01/21/16 Ferrous Sulfate 325 mg PO BIDCM #60 tab 01/22/16 Insulin Detemir [Levemir FlexPen] 15 units SC QHS #1 insuln.pen 01/22/16 Metoprolol Tartrate [Lopressor 25 mg PO BID #60 tab 01/22/16 (beta jefe)] albuterol sulfate HFA 90 2 puff INHALATION Q4H PRN 01/12/18 mcg/actuation aerosol inhaler budesonide-formoterol HFA 160 2 puff INHALATION .QID g 01/12/18 mcg-4.5 mcg/actuation aerosol inhaler calcium carbonate 675 mg-magnesium tab PO 01/12/18 hydroxide 135 mg chewable tablet chlorpheniramine 4 mg tablet 4 mg PO .PRN tab 01/12/18 insulin aspart U- 100 100 unit/mL 10 unit SC TID ml 01/12/18 subcutaneous solution lactulose 10 gram/15 mL oral 10 g PO QHS 01/12/18 solution lactulose 10 gram/15 mL oral 10 g PO QHS 01/12/18 solution lubiprostone 24 mcg capsule 24 mcg PO BID 01/12/18 magnesium 200 mg tablet 400 mg PO DAILY tab 01/12/18 metronidazole 0.75 % vaginal gel 1 appful VAGINAL QHS 01/12/18 promethazine 12.5 mg tablet 12.5 mg PO Q8H PRN tab 01/12/18 roflumilast 500 mcg tablet 500 mcg PO QDAY 01/12/18 sodium chloride 0.65 % nasal spray 1 spray INTRANASAL Q1-4H PRN 01/12/18 aerosol terbinafine HCl 250 mg tablet 250 mg PO QDAY 01/12/18 Ciprofloxacin [Cipro] 500 mg PO BID #14 tab 07/04/18 Surgical History: Surgical History (Last Reviewed 08/14/18 @ 17:39 by Connor Skaggs DO) History of Achilles tendon repair Z98.890 History of lumpectomy of left breast Z98.890 2004 Retinopathy H35.00 LASER SURGERY LEFT EYE 2006 Surgical History: mastectomy, - - colonoscopies in the past she does not think found anything significant. Psychiatric History: No pertinent psych hx [employer] History: No pertinent [employer] history Lives: Spouse/ Significant Other Smoking Status: Former smoker Tobacco Use: Non-smoker Alcohol: Rare Drugs: None - *Family History Maternal Family History: Family History (Last Reviewed 08/14/18 @ 17:39 by Connor Skaggs DO) Daughter Breast cancer Father Hypertension Sister Cancer Kidney disease Mother Pancreatic cancer History Items: Diabetes, Hypertension Paternal Family History: Family History (Last Reviewed 08/14/18 @ 17:39 by Connor Skaggs DO) Daughter Breast cancer Father Hypertension Sister Cancer Kidney disease Mother Pancreatic cancer History Items: Diabetes, Hypertension Review of Systems Constitutional: Reports: Chills, Weakness. Denies: Fever, Weight Change Eyes: Denies: Blurred vision, Pain HEENT: Denies: Difficulty Swallowing, Head Aches, Sinus Congestion, Sinus Drainage Cardiovascular: Reports: Light Headedness. Denies: Chest Pain, Palpitations Respiratory: Reports: Cough - with clear sputum occasionally. Denies: Shortness of Breath, Shortness of breath at rest, Sputum production Gastrointestinal: Reports: Constipation, Nausea, Vomiting. Denies: Abdominal Pain, Hematemesis, Hematochezia Genitourinary: Reports: - - she has had suprapubic pain since tyhe mccall was inserted on . Denies: Dysuria Gynecological: Denies: Breast symptoms, Vaginal discharge Musculoskeletal: Denies: Joint Pain, Joint Tenderness Skin: Denies: Jaundice, Rash, Wounds Neurological: Reports: Balance problems - due to lightheadedness when standing. Denies: Slurred speech, Confusion, Focal weakness, Numbness, Tingling Psychiatric: Denies: Anxiety, Depression, Homicidal Ideations, Suicidal Ideations Hematologic/ Lymphatic: Reports: Hx of blood clot. Denies: Easy Bruising, Easy Bleeding VTE Information - Inpt Only VTE Present on Admission: No VTE Mechan Device Prophylaxis: SCD's, Knee High MARIAJOSE Hose VTE Pharm Prophylaxis ordered?: Yes Patient Problems: Active and Suspected Problems (Last Reviewed 08/14/18 @ 17:39 by Connor Skaggs DO) Acute renal failure (Acute) Hyponatremia (Acute) - Physical Exam General: Alert, Oriented x3, Cooperative, No apparent distress, Well developed, Well nourished HEENT: Atraumatic, PERRLA, EOMI, Normocephalic Oral: Dry Mucosa Neck: Supple, No JVD, - - She either has BL carotid bruits OR radiation of an aortic MM Lungs: Clear to auscultation - after a few deep breaths.....initially had coarse crackles in the R base, Normal air movement Cardiovascular: Regular rate, Murmur - 3/6 systolic MM at the second RICS with radiation to the LVOT, LLSB and the apex Abdomen: Bowel Sounds Present, Soft, Non Tender Extremities: No clubbing, No cyanosis, No edema, Capillary Refill Less than 3 Seconds, No Calf Tenderness, Peripheral Pulses Normal Skin: No rashes, No breakdown Musculoskeletal: No Tenderness to Palpation of Joints or Extremities, Arthritic Changes Neurological: Cranial nerves II-XII grossly intact, Neuro grossly intact Psych/Mental Status: Normal Affect, Appropriate Vital Signs Temp Pulse Resp BP Pulse Ox 98 F 82 18 109/51 L 98 08/14/18 15:00 08/14/18 16:13 08/14/18 15:57 08/14/18 16:13 08/14/18 15:57 Oxygen Delivery Method Room Air Weight: 173 lb Body Mass Index (BMI) 30.6 Laboratory Tests Past 24 Hrs 08/14/18 08/14/18 08/14/18 14:30 14:30 16:20 WBC 10.4 RBC 4.37 Hgb 7.6 L Hct 27.4 L MCV 62.7 L MCH 17.4 L MCHC 27.7 L RDW 20.8 H RDW Differential 47.5 H Plt Count 424 MPV 9.0 Immature Gran % (Auto) 0.300 Neut % (Auto) 57.7 Lymph % (Auto) 30.7 Bowman % (Auto) 6.6 Eos % (Auto) 4.3 Baso % (Auto) 0.4 Absolute Neuts (auto) 6.0 Absolute Lymphs (auto) 3.18 Total Counted Not Reportable Platelet Estimate ADEQUATE Plt Morphology Comment LARGE Polychromasia 1+ Hypochromasia 2+ Anisocytosis 2+ Microcytosis 2+ Sodium 126 L Potassium 4.8 Chloride 91 L Carbon Dioxide 25.0 Anion Gap 10 BUN 25 H Creatinine 1.63 H Estim Creat Clear Calc 25.05 Est GFR (MDRD) Af Amer 40 L Est GFR (MDRD) Non-Af 33 L BUN/Creatinine Ratio 15.3 Glucose 371 H Calcium 10.5 H Urine Color Yellow Urine Clarity Cloudy Urine pH 6.5 Ur Specific [place] 1.015 Urine Protein 500 H Urine Glucose (UA) 100 H Urine Ketones Negative Urine Occult Blood 150 H Urine Nitrite Negative Urine Bilirubin Negative Urine Urobilinogen Normal Ur Leukocyte Esterase 500 H Urine RBC 50-100 SEEN Urine WBC 50-100 SEEN Ur Squamous Epith Cells 0-5 SEEN Ur Transition Epith Cell 5-10 SEEN Amorphous Sediment 2+ Urine Bacteria 2+ Urine Mucus 0 SEEN Urine Yeast RARE Assessment/Plan All Active Problems (Last Reviewed 08/14/18 @ 17:39 by Connor Skaggs DO) Acute renal failure (Acute) Hyponatremia (Acute) Impressions 1. acute kidney injury on CRF stage 3 - suspect due to dehydration due to uncontrolled DM 2. urine retention - had a mccall placed at Dr. Edmondson's office on - pt is unable to do the self cath herself and there is no one at home to do this for her - she may need a suprapubic 3. DM II 4. HTN 5. hyponatremia 6. dehydration 7. MM - due to 8. COPD 9. former smoker 10. hypercalcemia - likely due to dehydration 11. microcytic anemia Admit to the hospital and hydrate Check urine sodium and creat Check a TSH iron studies and a retic panel Mag Citrate tonight and start Miralax BID Dulcolax suppository now Recheck the lab in the AM ECHO to evaluate for progression of the aortic MM Check a HGBA1C order home meds when we are able to get a accurate med list Code Visit Inpatient E&M: 09944 Init Hosp L3
--- NOTE | 2018-08-14 19:35 | ECHOD_ITS ---
Reason For Study: murmur Procedure This was a 2D Doppler, Color Flow transthoracic echocardiogram. The study was technically difficult. Exam performed portable in patient room. Left Ventricle Normal LV size. Left ventricular systolic function is normal. The estimated ejection fraction is 60 %. Stage 1 diastolic dysfunction. No regional wall motion abnormalities noted. Right Ventricle Normal RV size. Normal systolic function. Atria The left atrium is mildly enlarged. Normal right atrium. Mitral Valve Normal mitral valve. Tricuspid Valve Normal tricuspid valve. Mild (1+) tricuspid valve insufficiency. Right ventricular systolic pressure estimated to be 19 mmHg. Aortic Valve Trisinus/trileaflet aortic valve. Mild focal aortic valve calcification. Peak aortic valve gradient 29 mmHg. Mean aortic valve gradient 16 mmHg. Mild aortic stenosis. Calculated aortic valve area (continuity equation) is 1.3 cm2. Mild (1+) eccentric aortic valve insufficiency. Pulmonic Valve Normal pulmonic valve. Great Vessels Normal aortic root. The pulmonary artery is normal size. Normal inferior vena cava. Pericardium/Pleural No pericardial effusion. MMode/2D Measurements & Calculations LVIDd: 3.8 cm IVSd: 1.0 cm LVOT diam: 2.0 cm LVIDs: 2.5 cm LVPWd: 1.1 cm LVOT area: 3.3 cm2 RVDd: 3.1 cm FS: 33.8 % Ao root diam: 3.0 cm LAV(MOD-bp): 73.5 ml LA A4 area: 22.0 cm2 LAV(MOD-bp) Indexed: 40.5 ml/m2 LAV(MOD-sp2): 70.2 ml LAV(MOD-sp4): 74.5 ml LA dimension(2D): 4.2 cm RA A4 area: 12.1 cm2 Time Measurements MV dec time: 0.28 sec Doppler Measurements & Calculations MV E max pino: 81.0 cm/sec Lat Peak E' Pino: 7.2 cm/sec Med Peak E' Pino: 5.9 cm/sec MV A max pino: 120.4 cm/sec E/E' lat: 11.2 E/E' med: 13.6 MV E/A: 0.67 Ao V2 max: 270.2 cm/sec AI max pino: 403.8 cm/sec LV V1 max: 109.6 cm/sec Ao max P.2 mmHg AI max P.3 mmHg LV V1 max P.8 mmHg Ao V2 mean: 191.3 cm/sec AI dec slope: 298.0 cm/sec2 LV V1 mean P.4 mmHg Ao mean P.0 mmHg AI P1/2t: 396.8 msec LV V1 mean: 72.8 cm/sec Ao V2 VTI: 63.4 cm LV V1 VTI: 24.9 cm LORNA(I,D): 1.3 cm2 LORNA(V,D): 1.3 cm2 SV(LVOT): 81.5 ml PA V2 max: 109.4 cm/sec TR max pino: 221.1 cm/sec TR max P.6 mmHg Interpretation Summary Normal LV size. Left ventricular systolic function is normal. The estimated ejection fraction is 60 %. Stage 1 diastolic dysfunction. Mild aortic stenosis. Calculated aortic valve area (continuity equation) is 1.3 cm2. Mild (1+) eccentric aortic valve insufficiency. Ordering Physician: Shakira Skaggs Referring Physician: Ramone Smiley Performed By: Margot Cleary, DALIA, RVT
[2018-08-14] MEDS: Magnesium Citrate 300 ML 150 ML PO (20:51)
[2018-08-14 20:58] LABS: Hematocrit 26.2 % (37-47); Hemoglobin 7.3 g/dl (12.0-15.0); RET-HE 14.7 pg (30-35); Reticulocyte Count 2.39 % (0.5-1.5)
[2018-08-14] MEDS: Bisacodyl 10 MG Suppository RECTAL (21:03)
[2018-08-14 21:19] LABS: Ferritin 22 ng/mL (8-252); Iron 14 ug/dL (50-170); Iron Binding Capacity,Total 303 ug/dL (250-450); PERCENT IRON SATURATION 4.6 % (15.0-55.0); Thyroid Stim Hormone (TSH) 0.01 uIU/mL (0.358-3.74)
[2018-08-14 21:20] LABS: Hemoglobin A1c 13.7 % (4.2-6.3)
[2018-08-14] MEDS: Heparin Injection (Vial) 5,000 UNIT/ML VIAL 5000 UNIT SC (22:15)
[2018-08-14] MEDS: Insulin Lispro 100 UNIT/ML INSULN.PEN SC (22:19)
[2018-08-14 22:41] LABS: Bedside Glucose 283 mg/dL (70-110)
[2018-08-15] VITALS (13 sets, daily range): BP systolic 106–141; BP diastolic 34–89; PULSE 89–100; RESP 14–16; TEMP 36.9–38.2; O2SAT 92–99; BMI 26.8; BMI 30.6
[2018-08-15 01:31] LABS: Urine Sodium 64 mmol/L (Not Establ.)
[2018-08-15 02:01] LABS: Hematocrit 24.6 % (37-47)
[2018-08-15] MEDS: Heparin Injection (Vial) 5,000 UNIT/ML VIAL 5000 UNIT SC ×3 (05:34→23:59)
[2018-08-15] MEDS: 0.9% Normal Saline 1,000 ML 150 ML IV (05:34)
[2018-08-15 05:46] LABS: Bedside Glucose 109 mg/dL (70-110)
[2018-08-15 06:55] LABS: Hematocrit 23.7 % (37-47); Hemoglobin 6.6 g/dl (12.0-15.0); Mean Corp Hgb Conc 27.8 g/gl (32-36); Mean Corpuscular Hgb 17.5 pg (27.0-32.0); Mean Corpuscular Volume 62.9 fL (81-99); Mean Platelet Vol. 10.1 fl (6.2-12.0); Platelet Count 392 K/mm3 (150-450); RBC Distribution Width CV 21.3 % (11.6-14.6); RBC Distribution Width SD 46.5 fl (35.1-43.9); Red Blood Count 3.77 M/mm3 (4.2-5.4); White Blood Count 9.2 K/mm3 (4.4-11.0)
[2018-08-15 06:58] LABS: Scan Indicated on CBC? Y/N YES- FLAGS NOTED
[2018-08-15 07:01] LABS: ALB/GLOB Ratio 0.5 RATIO (0.9-2.4); AST(SGOT) 23 U/L (15-37); Alanine Aminotransfer ALT/SGPT 33 U/L (13-56); Albumin, Serum 2.4 g/dL (3.2-5.0); Alkaline Phosphatase 79 U/L (45-117); Anion Gap 6 (5-15); BUN 23 mg/dL (7-18); BUN/Creat Ratio 22.8 RATIO (10-20); Calcium,Total 9.2 mg/dL (8.5-10.1); Chloride 101 mmol/L (98-107); Creatinine, Serum 1.01 mg/dL (0.55-1.02); EST Glomerular Filtration Rate 57 mL/min (>60); Est Glom Filt Rate - Afr Amer 69 mL/min (>60); Estimated Creatinine Clearance 40.42 ml/min; Globulin 4.4 g/dL (2.2-4.2); Glucose 99 mg/dL (74-106); Magnesium 2.3 mg/dL (1.6-2.6); Phosphorus 2.3 mg/dL (2.5-4.9); Potassium 4.8 mmol/L (3.5-5.1); Protein, Total 6.8 g/dL (6.4-8.2); Sodium Level 134 mmol/L (136-145)
[2018-08-15 07:20] LABS: Differential Comment SCAN
--- NOTE | 2018-08-15 07:24 | PCM.PROGNOTE ---
Patient Problems: Active and Suspected Problems (Last Reviewed 08/14/18 @ 17:39 by Connor Skaggs DO) Acute renal failure (Acute) Hyponatremia (Acute) Anemia (Acute) Subjective: All events of the past 24 Hours have been reviewed VS: Vital signs stable TMAX -98.6 Blood sugars -reviewed Lab: Hemoglobin today is 6.6, white blood cell count and platelets are within normal limits. Reticulocyte count is increased to 2.39. Sodium is 134 today after hydration and the creatinine has decreased from 1.63 to 1.01. Phosphorus is low at 2.3 and magnesium is normal at 2.3. LFTs are within normal limits. TSH is very low at 0.01. The UA had 50-100 WBCs with no squamous epithelial cells. There was 2+ bacteria and this is a catheterized specimen. Fractional excretion of sodium is 0.71% which is consistent with prerenal azotemia. Stool is Hemoccult positive Micro: urine culture pending Subjective: She tells me that she had a few bowel movements last night. She was unable to take the MiraLAX because the magnesium citrate made her nauseated. She denies any chest pain and also denies any shortness of breath at rest. She denies nausea or vomiting today. She tells me that she does get full fast and her appetite and intake has been decreased because of this. Has had a colonoscopy at [facility] by Dr. Carmen but, he could not complete the test and she was sent to [facility] where she tells me she had a polypectomy. She has never had an EGD or to her knowledge a gastric emptying study. She has had constipation for many many years. Objective: PHYSICAL EXAM: GENERAL: alert, oriented X 3, Cooperative, NAD ORAL: moist mucosa, no mucosal lesions NECK: No JVD, supple, trachea midline LUNGS: CTA, symmetric chest expansion, diminished BS's. No wheezing HEART: RRR, Normal S1 and S2, no rub, no gallop, no change in the MM....likely louder than usual because of the anemia ABDOMEN: soft, NT, mild distended and tympanic in the upper quadrants, BS present, no guarding with palpation EXTREMITIES: no edema, no cyanosis, no calf tenderness SKIN: No rashes, no breakdown NEUROLOGIC: no focal neurologic deficits PSYCH: appropriate, normal affect, pleasant Urine in the mccall is pale yellow today with what appears to be a white particulate matter that I suspect is yeast - Physical Exam Vital Signs Temp Pulse Resp BP Pulse Ox 98.5 F 96 16 113/89 H 97 08/15/18 02:40 08/15/18 02:40 08/15/18 02:40 08/15/18 02:40 08/15/18 02:40 Oxygen Delivery Method Room Air Weight: 151 lb 7.321 oz Body Mass Index (BMI) 26.8 Intake and Output for Last 24 Hours 08/13/18 08/14/18 08/15/18 23:59 23:59 23:59 Intake Total 1536 / 1536 Balance 1536 / 1536 Microbiology Past 72 Hours 08/15/18 05:10 Stool Occult Blood (MAHESH) - Final Stool Occult Blood Positive Laboratory Tests Past 24 Hrs 08/14/18 08/14/18 08/14/18 14:30 14:30 16:20 WBC 10.4 RBC 4.37 Hgb 7.6 L Hct 27.4 L MCV 62.7 L MCH 17.4 L MCHC 27.7 L RDW 20.8 H RDW Differential 47.5 H Plt Count 424 MPV 9.0 Immature Gran % (Auto) 0.300 Neut % (Auto) 57.7 Lymph % (Auto) 30.7 [place] % (Auto) 6.6 Eos % (Auto) 4.3 Baso % (Auto) 0.4 Absolute Neuts (auto) 6.0 Absolute Lymphs (auto) 3.18 Total Counted Not Reportable Differential Comment Platelet Estimate ADEQUATE Immature Plt Fraction Plt Morphology Comment LARGE Polychromasia 1+ Hypochromasia 2+ Anisocytosis 2+ Microcytosis 2+ Retic Count Immature Retic Fraction Retic Hgb Equivalent Sodium 126 L Potassium 4.8 Chloride 91 L Carbon Dioxide 25.0 Anion Gap 10 BUN 25 H Creatinine 1.63 H Estim Creat Clear Calc 25.05 Est GFR (MDRD) Af Amer 40 L Est GFR (MDRD) Non-Af 33 L BUN/Creatinine Ratio 15.3 Glucose 371 H Hemoglobin A1c Calcium 10.5 H Phosphorus Magnesium Iron TIBC Iron Saturation Ferritin Total Bilirubin AST ALT Alkaline Phosphatase Total Protein Albumin Globulin Albumin/Globulin Ratio TSH Urine Color Yellow Urine Clarity Cloudy Urine pH 6.5 Ur Specific [place] 1.015 Urine Protein 500 H Urine Glucose (UA) 100 H Urine Ketones Negative Urine Occult Blood 150 H Urine Nitrite Negative Urine Bilirubin Negative Urine Urobilinogen Normal Ur Leukocyte Esterase 500 H Urine RBC 50-100 SEEN Urine WBC 50-100 SEEN Ur Squamous Epith Cells 0-5 SEEN Ur Transition Epith Cell 5-10 SEEN Amorphous Sediment 2+ Urine Bacteria 2+ Urine Mucus 0 SEEN Urine Yeast RARE Ur Random Sodium Urine Creatinine Blood Type Antibody Screen Crossmatch 08/14/18 08/14/18 08/14/18 16:20 20:10 20:10 WBC RBC Hgb Hct MCV MCH MCHC RDW RDW Differential Plt Count MPV Immature Gran % (Auto) Neut % (Auto) Lymph % (Auto) [place] % (Auto) Eos % (Auto) Baso % (Auto) Absolute Neuts (auto) Absolute Lymphs (auto) Total Counted Differential Comment Platelet Estimate Immature Plt Fraction Plt Morphology Comment Polychromasia Hypochromasia Anisocytosis Microcytosis Retic Count Immature Retic Fraction Retic Hgb Equivalent Sodium Potassium Chloride Carbon Dioxide Anion Gap BUN Creatinine Estim Creat Clear Calc Est GFR (MDRD) Af Amer Est GFR (MDRD) Non-Af BUN/Creatinine Ratio Glucose Hemoglobin A1c 13.7 H Calcium Phosphorus Magnesium Iron TIBC Iron Saturation Ferritin Total Bilirubin AST ALT Alkaline Phosphatase Total Protein Albumin Globulin Albumin/Globulin Ratio TSH Urine Color Urine Clarity Urine pH Ur Specific [place] Urine Protein Urine Glucose (UA) Urine Ketones Urine Occult Blood Urine Nitrite Urine Bilirubin Urine Urobilinogen Ur Leukocyte Esterase Urine RBC Urine WBC Ur Squamous Epith Cells Ur Transition Epith Cell Amorphous Sediment Urine Bacteria Urine Mucus Urine Yeast Ur Random Sodium 64 Urine Creatinine 116.00 Blood Type B POSITIVE Antibody Screen NEGATIVE Crossmatch See Detail 08/14/18 08/14/18 08/15/18 20:10 20:10 01:45 WBC RBC Hgb 7.3 L 7.0 L Hct 26.2 L 24.6 L MCV MCH MCHC RDW RDW Differential Plt Count MPV Immature Gran % (Auto) Neut % (Auto) Lymph % (Auto) [place] % (Auto) Eos % (Auto) Baso % (Auto) Absolute Neuts (auto) Absolute Lymphs (auto) Total Counted Differential Comment Platelet Estimate Immature Plt Fraction 4.0 Plt Morphology Comment Polychromasia Hypochromasia Anisocytosis Microcytosis Retic Count 2.39 H Immature Retic Fraction 26.80 H Retic Hgb Equivalent 14.7 L Sodium Potassium Chloride Carbon Dioxide Anion Gap BUN Creatinine Estim Creat Clear Calc Est GFR (MDRD) Af Amer Est GFR (MDRD) Non-Af BUN/Creatinine Ratio Glucose Hemoglobin A1c Calcium Phosphorus Magnesium Iron 14 L TIBC 303 Iron Saturation 4.6 L Ferritin 22 Total Bilirubin AST ALT Alkaline Phosphatase Total Protein Albumin Globulin Albumin/Globulin Ratio TSH 0.01 L Urine Color Urine Clarity Urine pH Ur Specific [place] Urine Protein Urine Glucose (UA) Urine Ketones Urine Occult Blood Urine Nitrite Urine Bilirubin Urine Urobilinogen Ur Leukocyte Esterase Urine RBC Urine WBC Ur Squamous Epith Cells Ur Transition Epith Cell Amorphous Sediment Urine Bacteria Urine Mucus Urine Yeast Ur Random Sodium Urine Creatinine Blood Type Antibody Screen Crossmatch 08/15/18 08/15/18 06:03 06:03 WBC 9.2 RBC 3.77 L Hgb 6.6 L Hct 23.7 L MCV 62.9 L MCH 17.5 L MCHC 27.8 L RDW 21.3 H RDW Differential 46.5 H Plt Count 392 MPV 10.1 Immature Gran % (Auto) Neut % (Auto) Lymph % (Auto) [place] % (Auto) Eos % (Auto) Baso % (Auto) Absolute Neuts (auto) Absolute Lymphs (auto) Total Counted Differential Comment SCAN Platelet Estimate Immature Plt Fraction Plt Morphology Comment Polychromasia Hypochromasia Anisocytosis Microcytosis Retic Count Immature Retic Fraction Retic Hgb Equivalent Sodium 134 L Potassium 4.8 Chloride 101 Carbon Dioxide 27.0 Anion Gap 6 BUN 23 H Creatinine 1.01 Estim Creat Clear Calc 40.42 Est GFR (MDRD) Af Amer 69 Est GFR (MDRD) Non-Af 57 L BUN/Creatinine Ratio 22.8 H Glucose 99 Hemoglobin A1c Calcium 9.2 Phosphorus 2.3 L Magnesium 2.3 Iron TIBC Iron Saturation Ferritin Total Bilirubin 0.20 AST 23 ALT 33 Alkaline Phosphatase 79 Total Protein 6.8 Albumin 2.4 L Globulin 4.4 H Albumin/Globulin Ratio 0.5 L TSH Urine Color Urine Clarity Urine pH Ur Specific [place] Urine Protein Urine Glucose (UA) Urine Ketones Urine Occult Blood Urine Nitrite Urine Bilirubin Urine Urobilinogen Ur Leukocyte Esterase Urine RBC Urine WBC Ur Squamous Epith Cells Ur Transition Epith Cell Amorphous Sediment Urine Bacteria Urine Mucus Urine Yeast Ur Random Sodium Urine Creatinine Blood Type Antibody Screen Crossmatch POC Glucose 08/15/18 08/14/18 05:33 22:19 POC Glucose 109 283 H Medical Necessity - Tobacco Use Smoking Status: Former smoker Tobacco Use: Non-smoker Assessment/Plan All Active Problems (Last Reviewed 08/14/18 @ 17:39 by Connor Skaggs DO) Acute renal failure (Acute) Hyponatremia (Acute) Anemia (Acute) Impressions 1. acute kidney injury on CRF stage 3 - suspect due to dehydration due to uncontrolled DM 2. urine retention - had a mccall placed at Dr. Edmondson's office on - pt is unable to do the self cath herself and there is no one at home to do this for her - she may need a suprapubic 3. DM II 4. HTN 5. hyponatremia 6. dehydration 7. MM - due to 8. COPD 9. former smoker 10. hypercalcemia - likely due to dehydration 11. microcytic anemia - with iron deficiency 12. Heme + stools 13. UTI vs pyelonephritis - she has N/V but no evidence of stranding on the CT of the abdomen and pelvis 14. Hypophosphatemia 15. very low TSH - I suspect she may have a secondary or tertiary hypothyroidism. Transfuse 2 units of PRBC's Check a T4, T3, thyroid antibodies recheck HH at 1800 and repeat lab in the AM decrease the IV rate to 100 will need EGD/colonoscopy if not done recently to determine source of the heme + stool urine culture ordered - will start Cipro......recent urine culture, cath specimen, grew only yeast. HGBA1C is 13.7 - either she is not taking her medications or she is very non-compliant with diet.....education today about the importance of blood sugar control in preventing infection, CAD etc. Supplement the phosphorous Consult Dr. Umaña for endoscopy Increase MiraLAX to 34 g twice daily and hopefully start bowel prep tomorrow for endoscopy Thursday or Thursday Need to address the issue of self cath vs suprapubic catheter.......will discuss with Dr. Edmondson Code Visit Inpatient E&M: [id number] [facility] L[facility]
[2018-08-15 08:10] LABS: Free T3 3.1 pg/mL (2.18-3.98); T4 Total, Thyroxin 8.4 ug/dL (4.8-13.9)
--- NOTE | 2018-08-15 09:54 | PCM.CONS.GEN ---
Problem List (1) Anemia Status: Acute Qualifiers: Anemia type: iron deficiency Iron deficiency anemia type: chronic blood loss Qualified Code(s): D50.0 - Iron deficiency anemia secondary to blood loss (chronic) (2) History of constipation Status: Chronic Reason for Consult Date of Consultation: 08/15/18 Reason for Consultation: Iron deficiency anemia History of Present Illness: The patient is a 73 year old F who was admitted for anemia. The patient had a hemoglobin of 6.6 and is currently getting transfused. The patient notes she had a colonoscopy 2 years ago and a polyp was fine. She does not note that an EGD was done at that time but she cannot remember. She says she is not having any gross blood in her stools but she has chronic constipation and this has been lifelong. She is not having any abdominal pain this morning. She is not having any nausea or vomiting. Past Medical History Past Medical History (Chronic Problems): Chronic Problems (Last Reviewed 08/14/18 @ 17:39 by Connor Skaggs DO) Chronic renal failure, stage 3 (moderate) (Chronic) Microcytic anemia (Chronic) Urine retention (Chronic) Aortic stenosis (Chronic) valve area in 2015 was 1.7cm2 COPD (chronic obstructive pulmonary disease) (Chronic) History of constipation (Chronic) Hx of venous thrombosis and embolism (Chronic) History of malignant neoplasm of breast (Chronic) Tobacco use (Chronic) Hypertension (Chronic) Type 2 diabetes mellitus (Chronic) Asthma (Chronic) Medical History: Medical History (Last Reviewed 08/14/18 @ 17:39 by Connor Skaggs DO) Anemia D64.9 Asthma J45.909 COPD (chronic obstructive pulmonary disease) J44.9 Carpal tunnel syndrome of right wrist G56.01 Cellulitis and abscess of finger, unspecified L03.019, L02.519 Chronic idiopathic constipation K59.04 Diabetes E11.9 GERD (gastroesophageal reflux disease) K21.9 Goiter, nontoxic, 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 Hypercholesteremia E78.00 Leg weakness, bilateral R29.898 Peripheral artery disease I73.9 Polypharmacy Z79.899 Pruritus L29.9 Retinopathy H35.00 Rhinitis J31.0 Strain of right rotator cuff capsule S46.011A Urinary retention with incomplete bladder emptying R33.9 Vitamin D deficiency E55.9 Hypertension I10 Allergies amoxicillin Allergy (Verified 08/14/18 13:44) YEAST INFECTION cephalexin monohydrate [From Keflex] Allergy (Verified 08/14/18 13:44) Rash clopidogrel bisulfate [From Plavix] Allergy (Verified 08/14/18 13:44) Other cloth tap Allergy (Uncoded 08/14/18 13:44) Other Home Medications: Ambulatory Orders Medication Instructions Recorded Coconut Oil/Beeswax/Safflower [Lip 90 gm TP DAILY 12/25/14 [employer] Natural] Cod Liver Oil 1 ea PO DAILY 12/25/14 Lisinopril [Zestril] 40 mg PO DAILY 12/25/14 Aspirin [Aspirin, Baby] 81 mg PO DAILY@0800 01/21/16 Astepro 01/21/16 Bisacodyl [Dulcolax] 5 mg PO DAILY PRN 01/21/16 Calcium Carbonate [Calcium] 600 mg PO DAILY 01/21/16 Diltiazem HCl [Diltiazem 24Hr Cd] 180 mg PO QHS 01/21/16 Multivitamin [Daily Multiple 1 ea PO DAILY 01/21/16 Vitamin] Pravastatin Sodium [Pravachol] 20 mg PO QHS 01/21/16 Psyllium [Metamucil] 1 packet PO TID 01/21/16 Ranitidine HCl [Zantac 75] 300 mg PO DINNER 01/21/16 Sitagliptin Phosphate [Januvia] 50 mg PO DAILY 01/21/16 Ferrous Sulfate 325 mg PO BIDCM #60 tab 01/22/16 Insulin Detemir [Levemir FlexPen] 15 units SC QHS #1 insuln.pen 01/22/16 Metoprolol Tartrate [Lopressor 25 mg PO BID #60 tab 01/22/16 (beta jefe)] albuterol sulfate HFA 90 2 puff INHALATION Q4H PRN 01/12/18 mcg/actuation aerosol inhaler budesonide-formoterol HFA 160 2 puff INHALATION .QID g 01/12/18 mcg-4.5 mcg/actuation aerosol inhaler calcium carbonate 675 mg-magnesium tab PO 01/12/18 hydroxide 135 mg chewable tablet chlorpheniramine 4 mg tablet 4 mg PO .PRN tab 01/12/18 insulin aspart U- 100 100 unit/mL 10 unit SC TID ml 01/12/18 subcutaneous solution lactulose 10 gram/15 mL oral 10 g PO QHS 01/12/18 solution lactulose 10 gram/15 mL oral 10 g PO QHS 01/12/18 solution lubiprostone 24 mcg capsule 24 mcg PO BID 01/12/18 magnesium 200 mg tablet 400 mg PO DAILY tab 01/12/18 metronidazole 0.75 % vaginal gel 1 appful VAGINAL QHS 01/12/18 promethazine 12.5 mg tablet 12.5 mg PO Q8H PRN tab 01/12/18 roflumilast 500 mcg tablet 500 mcg PO QDAY 01/12/18 sodium chloride 0.65 % nasal spray 1 spray INTRANASAL Q1-4H PRN 01/12/18 aerosol terbinafine HCl 250 mg tablet 250 mg PO QDAY 01/12/18 Ciprofloxacin [Cipro] 500 mg PO BID #14 tab 07/04/18 Surgical History: Surgical History (Last Reviewed 08/14/18 @ 17:39 by Connor Skaggs DO) History of Achilles tendon repair Z98.890 History of lumpectomy of left breast Z98.890 2004 Retinopathy H35.00 LASER SURGERY LEFT EYE 2006 Surgical History: mastectomy, - - colonoscopies in the past she does not think found anything significant. Psychiatric History: No pertinent psych hx CURER ACID DRUM History: No pertinent CURER ACID DRUM history Lives: Spouse/ Significant Other Smoking Status: Former smoker Tobacco Use: Non-smoker Alcohol: Rare Drugs: None - *Family History Maternal Family History: Family History (Last Reviewed 08/14/18 @ 17:39 by Connor Skaggs DO) Daughter Breast cancer Father Hypertension Sister Cancer Kidney disease Mother Pancreatic cancer History Items: Diabetes, Hypertension Paternal Family History: Family History (Last Reviewed 08/14/18 @ 17:39 by Connor Skaggs DO) Daughter Breast cancer Father Hypertension Sister Cancer Kidney disease Mother Pancreatic cancer History Items: Diabetes, Hypertension Review of Systems Constitutional: Denies: Anorexia, Chills HEENT: Denies: Difficulty Swallowing Cardiovascular: Denies: Chest Pain Respiratory: Denies: Cough Gastrointestinal: Reports: Constipation. Denies: Abdominal Pain, Hematemesis, Hematochezia, Nausea, Melena, Vomiting Genitourinary: Reports: Retention Skin: Denies: Jaundice Neurological: Denies: Balance problems Psychiatric: Denies: Anxiety Hematologic/ Lymphatic: Reports: Anemia Patient Problems: Active and Suspected Problems (Last Reviewed 08/14/18 @ 17:39 by Connor Skaggs DO) Acute renal failure (Acute) Hyponatremia (Acute) Anemia (Acute) - Physical Exam General: Alert, Oriented x3, Cooperative HEENT: Atraumatic Oral: Moist Mucosa Neck: No JVD Lungs: Normal air movement Cardiovascular: Regular rate, Regular Rhythm Abdomen: Soft, Non Tender, Non-Distended Extremities: No clubbing Skin: No rashes Musculoskeletal: No Muscle Wasting Neurological: Cranial nerves II-XII grossly intact Psych/Mental Status: Normal Affect Vital Signs Temp Pulse Resp BP Pulse Ox 98.5 F 90 16 106/35 L 99 08/15/18 07:51 08/15/18 07:51 08/15/18 07:51 08/15/18 07:51 08/15/18 07:51 Oxygen Delivery Method Room Air Weight: 151 lb 7.321 oz Body Mass Index (BMI) 26.8 Intake and Output for Last 24 Hours 08/13/18 08/14/18 08/15/18 23:59 23:59 23:59 Intake Total 1536 / 1536 Balance 1536 / 1536 Microbiology Past 72 Hours 08/15/18 05:10 Stool Occult Blood (MAHSEH) - Final Stool Occult Blood Positive Laboratory Tests Past 24 Hrs 08/14/18 08/14/18 08/14/18 14:30 14:30 16:20 WBC 10.4 RBC 4.37 Hgb 7.6 L Hct 27.4 L MCV 62.7 L MCH 17.4 L MCHC 27.7 L RDW 20.8 H RDW Differential 47.5 H Plt Count 424 MPV 9.0 Immature Gran % (Auto) 0.300 Neut % (Auto) 57.7 Lymph % (Auto) 30.7 [place] % (Auto) 6.6 Eos % (Auto) 4.3 Baso % (Auto) 0.4 Absolute Neuts (auto) 6.0 Absolute Lymphs (auto) 3.18 Total Counted Not Reportable Differential Comment Platelet Estimate ADEQUATE Immature Plt Fraction Plt Morphology Comment LARGE Polychromasia 1+ Hypochromasia 2+ Anisocytosis 2+ Microcytosis 2+ Retic Count Immature Retic Fraction Retic Hgb Equivalent Sodium 126 L Potassium 4.8 Chloride 91 L Carbon Dioxide 25.0 Anion Gap 10 BUN 25 H Creatinine 1.63 H Estim Creat Clear Calc 25.05 Est GFR (MDRD) Af Amer 40 L Est GFR (MDRD) Non-Af 33 L BUN/Creatinine Ratio 15.3 Glucose 371 H Hemoglobin A1c Calcium 10.5 H Phosphorus Magnesium Iron TIBC Iron Saturation Ferritin Total Bilirubin AST ALT Alkaline Phosphatase Total Protein Albumin Globulin Albumin/Globulin Ratio TSH Thyroxine (T4) Free T3 pg/dL Urine Color Yellow Urine Clarity Cloudy Urine pH 6.5 Ur Specific [place] 1.015 Urine Protein 500 H Urine Glucose (UA) 100 H Urine Ketones Negative Urine Occult Blood 150 H Urine Nitrite Negative Urine Bilirubin Negative Urine Urobilinogen Normal Ur Leukocyte Esterase 500 H Urine RBC 50-100 SEEN Urine WBC 50-100 SEEN Ur Squamous Epith Cells 0-5 SEEN Ur Transition Epith Cell 5-10 SEEN Amorphous Sediment 2+ Urine Bacteria 2+ Urine Mucus 0 SEEN Urine Yeast RARE Ur Random Sodium Urine Creatinine Blood Type Antibody Screen Crossmatch 08/14/18 08/14/18 08/14/18 16:20 20:10 20:10 WBC RBC Hgb Hct MCV MCH MCHC RDW RDW Differential Plt Count MPV Immature Gran % (Auto) Neut % (Auto) Lymph % (Auto) [place] % (Auto) Eos % (Auto) Baso % (Auto) Absolute Neuts (auto) Absolute Lymphs (auto) Total Counted Differential Comment Platelet Estimate Immature Plt Fraction Plt Morphology Comment Polychromasia Hypochromasia Anisocytosis Microcytosis Retic Count Immature Retic Fraction Retic Hgb Equivalent Sodium Potassium Chloride Carbon Dioxide Anion Gap BUN Creatinine Estim Creat Clear Calc Est GFR (MDRD) Af Amer Est GFR (MDRD) Non-Af BUN/Creatinine Ratio Glucose Hemoglobin A1c 13.7 H Calcium Phosphorus Magnesium Iron TIBC Iron Saturation Ferritin Total Bilirubin AST ALT Alkaline Phosphatase Total Protein Albumin Globulin Albumin/Globulin Ratio TSH Thyroxine (T4) Free T3 pg/dL Urine Color Urine Clarity Urine pH Ur Specific [place] Urine Protein Urine Glucose (UA) Urine Ketones Urine Occult Blood Urine Nitrite Urine Bilirubin Urine Urobilinogen Ur Leukocyte Esterase Urine RBC Urine WBC Ur Squamous Epith Cells Ur Transition Epith Cell Amorphous Sediment Urine Bacteria Urine Mucus Urine Yeast Ur Random Sodium 64 Urine Creatinine 116.00 Blood Type B POSITIVE Antibody Screen NEGATIVE Crossmatch See Detail 08/14/18 08/14/18 08/15/18 20:10 20:10 01:45 WBC RBC Hgb 7.3 L 7.0 L Hct 26.2 L 24.6 L MCV MCH MCHC RDW RDW Differential Plt Count MPV Immature Gran % (Auto) Neut % (Auto) Lymph % (Auto) [place] % (Auto) Eos % (Auto) Baso % (Auto) Absolute Neuts (auto) Absolute Lymphs (auto) Total Counted Differential Comment Platelet Estimate Immature Plt Fraction 4.0 Plt Morphology Comment Polychromasia Hypochromasia Anisocytosis Microcytosis Retic Count 2.39 H Immature Retic Fraction 26.80 H Retic Hgb Equivalent 14.7 L Sodium Potassium Chloride Carbon Dioxide Anion Gap BUN Creatinine Estim Creat Clear Calc Est GFR (MDRD) Af Amer Est GFR (MDRD) Non-Af BUN/Creatinine Ratio Glucose Hemoglobin A1c Calcium Phosphorus Magnesium Iron 14 L TIBC 303 Iron Saturation 4.6 L Ferritin 22 Total Bilirubin AST ALT Alkaline Phosphatase Total Protein Albumin Globulin Albumin/Globulin Ratio TSH 0.01 L Thyroxine (T4) Free T3 pg/dL Urine Color Urine Clarity Urine pH Ur Specific [place] Urine Protein Urine Glucose (UA) Urine Ketones Urine Occult Blood Urine Nitrite Urine Bilirubin Urine Urobilinogen Ur Leukocyte Esterase Urine RBC Urine WBC Ur Squamous Epith Cells Ur Transition Epith Cell Amorphous Sediment Urine Bacteria Urine Mucus Urine Yeast Ur Random Sodium Urine Creatinine Blood Type Antibody Screen Crossmatch 08/15/18 08/15/18 08/15/18 06:03 06:03 06:03 WBC 9.2 RBC 3.77 L Hgb 6.6 L Hct 23.7 L MCV 62.9 L MCH 17.5 L MCHC 27.8 L RDW 21.3 H RDW Differential 46.5 H Plt Count 392 MPV 10.1 Immature Gran % (Auto) Neut % (Auto) Lymph % (Auto) [place] % (Auto) Eos % (Auto) Baso % (Auto) Absolute Neuts (auto) Absolute Lymphs (auto) Total Counted Differential Comment SCAN Platelet Estimate Immature Plt Fraction Plt Morphology Comment Polychromasia Hypochromasia Anisocytosis Microcytosis Retic Count Immature Retic Fraction Retic Hgb Equivalent Sodium 134 L Potassium 4.8 Chloride 101 Carbon Dioxide 27.0 Anion Gap 6 BUN 23 H Creatinine 1.01 Estim Creat Clear Calc 40.42 Est GFR (MDRD) Af Amer 69 Est GFR (MDRD) Non-Af 57 L BUN/Creatinine Ratio 22.8 H Glucose 99 Hemoglobin A1c Calcium 9.2 Phosphorus 2.3 L Magnesium 2.3 Iron TIBC Iron Saturation Ferritin Total Bilirubin 0.20 AST 23 ALT 33 Alkaline Phosphatase 79 Total Protein 6.8 Albumin 2.4 L Globulin 4.4 H Albumin/Globulin Ratio 0.5 L TSH Thyroxine (T4) 8.4 Free T3 pg/dL 3.1 Urine Color Urine Clarity Urine pH Ur Specific [place] Urine Protein Urine Glucose (UA) Urine Ketones Urine Occult Blood Urine Nitrite Urine Bilirubin Urine Urobilinogen Ur Leukocyte Esterase Urine RBC Urine WBC Ur Squamous Epith Cells Ur Transition Epith Cell Amorphous Sediment Urine Bacteria Urine Mucus Urine Yeast Ur Random Sodium Urine Creatinine Blood Type Antibody Screen Crossmatch POC Glucose 08/15/18 08/14/18 05:33 22:19 POC Glucose 109 283 H Clinical Impression(s) from Imaging Studies Abdomen/Pelvis CT 08/14/18 15:52 IMPRESSION: 1. No hydronephrosis. 2. Decompressed urinary bladder by Serna catheter as compared to the prior study. Urinary bladder wall thickening cannot be excluded on this exam. 3. 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 Stercoral proctitis is possible. No pneumoperitoneum or ulceration. Increased since prior study. 4. Additional stable chronic changes, as above. Electronically Signed: Zechariah Redmond MD at 17:26 EST , Service support , Assessment/Plan All Active Problems (Last Reviewed 08/14/18 @ 17:39 by Connor Skaggs DO) Acute renal failure (Acute) Hyponatremia (Acute) Anemia (Acute) 73-year-old female with constipation and iron deficiency anemia 1. The patient has a very full colon on CAT scan. I will order a double dose of MiraLAX this morning and this evening and try to do a full bowel prep tomorrow with hopes of scoping Thursday or Thursday. I explained this to the patient and she is in agreement. Clear liquid diet while we are trying to clear her colon out. Transfuse as needed. 2. I explained endoscopy in detail to the patient. I explained the risks including but not limited to stroke or heart attack with anesthesia, perforation of the GI tract, bleeding, infection. I explained that any of these could necessitate further emergency surgery. The patient understands and all questions were answered sufficiently. The patient wishes to proceed with procedure. Tomasz Umaña MD Pager: [facility] [address] [place] [address] Office:
[2018-08-15] MEDS: Polyethylene Glycol 3350 17 GM PACKET PO (10:14)
[2018-08-15] MEDS: Ciprofloxacin 400 MG/200 ML BAG 200 MG IV (11:00)
[2018-08-15] MEDS: 0.9% Normal Saline 1,000 ML 100 ML IV (11:05)
[2018-08-15] MEDS: Insulin Lispro 100 UNIT/ML INSULN.PEN SC ×3 (12:55→23:59)
[2018-08-15 13:01] LABS: Bedside Glucose 274 mg/dL (70-110)
--- NOTE | 2018-08-15 21:07 | NURSING ---
Pt spiked low grade fever at 100.7. Gave 650 mg of Tylenol. Will continue to monitor.
[2018-08-15] MEDS: Acetaminophen 325 MG Tablet 650 MG PO (21:58)
[2018-08-16] VITALS (9 sets, daily range): BP systolic 117–159; BP diastolic 51–67; PULSE 72–88; RESP 16–18; TEMP 36.6–37.2; O2SAT 93–100
[2018-08-16 00:36] LABS: Bedside Glucose 153 mg/dL (70-110)
[2018-08-16] MEDS: Ciprofloxacin 400 MG/200 ML BAG 200 MG IV ×2 (00:40→10:30)
[2018-08-16] MEDS: 0.9% Normal Saline 1,000 ML 100 ML IV ×2 (00:40→14:50)
[2018-08-16 00:41] LABS: Bedside Glucose 168 mg/dL (70-110)
[2018-08-16] MEDS: Polyethylene Glycol 3350 17 GM PACKET PO ×3 (00:50→22:51)
[2018-08-16 01:13] LABS: Hematocrit 29.5 % (37-47)
[2018-08-16] MEDS: Heparin Injection (Vial) 5,000 UNIT/ML VIAL 5000 UNIT SC ×3 (05:55→22:51)
[2018-08-16] MEDS: Insulin Lispro 100 UNIT/ML INSULN.PEN SC ×3 (06:00→17:12)
[2018-08-16 06:59] LABS: Absolute Lymphocyte Count 2.75 X10^3/ul (0.83-4.51); Absolute Neutrophil Count 5.2 X10^3/uL (2.0-7.7); Basophil# 0.03 X10^3/uL; Basophil% 0.3 % (0-1); Eosinophil# 0.29 X10^3/uL; Eosinophils% 3.2 % (0-5); Hematocrit 29.9 % (37-47); Hemoglobin 9.2 g/dl (12.0-15.0); Lymphocyte # 2.75 X10^3/ul (4.0); Lymphocyte % 30.6 % (19-41); Mean Corp Hgb Conc 30.8 g/gl (32-36); Mean Corpuscular Hgb 20.8 pg (27.0-32.0); Mean Corpuscular Volume 67.5 fL (81-99); Mean Platelet Vol. 9.5 fl (6.2-12.0); Monocyte# 0.73 X10^3/uL; Monocyte% 8.1 % (0-10); Neutrophil # 5.17 X10^3/uL (2.7-7.7); Neutrophil % 57.5 % (47-70); Platelet Count 311 K/mm3 (150-450); RBC Distribution Width CV 24.1 % (11.6-14.6); RBC Distribution Width SD 58.2 fl (35.1-43.9); Red Blood Count 4.43 M/mm3 (4.2-5.4)
[2018-08-16 07:00] LABS: Differential Indicated SCAN CRITERIA MET; POSITIVE COUNT NO; POSITIVE DIFFERENTIAL NO; POSITIVE MORPHOLOGY YES
[2018-08-16 07:05] LABS: Bedside Glucose 229 mg/dL (70-110)
[2018-08-16 07:17] LABS: Anisocytosis 2+; Hypochromasia 2+; Macrocytosis RARE; Microcytosis 2+; Platelet Estimate ADEQUATE (ADEQ); Polychromasia 1+
[2018-08-16 07:57] LABS: Anion Gap 7 (5-15); BUN 13 mg/dL (7-18); BUN/Creat Ratio 16.2 RATIO (10-20); Calcium,Total 8.8 mg/dL (8.5-10.1); Chloride 103 mmol/L (98-107); EST Glomerular Filtration Rate 74 mL/min (>60); Est Glom Filt Rate - Afr Amer 90 mL/min (>60); Estimated Creatinine Clearance 51.04 ml/min; Glucose 209 mg/dL (74-106); Phosphorus 2.6 mg/dL (2.5-4.9); Potassium 4.7 mmol/L (3.5-5.1); Sodium Level 136 mmol/L (136-145)
--- NOTE | 2018-08-16 08:18 | PCM.PN.SRG ---
Patient Problems: Active and Suspected Problems (Last Reviewed 08/14/18 @ 17:39 by Connor Skaggs DO) Acute renal failure (Acute) Hyponatremia (Acute) Anemia (Acute) Subjective: Patient had a few large bowel movements with MiraLAX. - Physical Exam General: Alert, Oriented x3, Cooperative Neck: No JVD Cardiovascular: Regular rate, Regular Rhythm Abdomen: Soft, Non Tender, Non-Distended Vital Signs Temp Pulse Resp BP Pulse Ox 98.4 F 84 16 117/53 L 96 08/16/18 03:25 08/16/18 03:25 08/16/18 03:25 08/16/18 03:25 08/16/18 07:50 Oxygen Delivery Method Room Air Weight: 151 lb 7.321 oz Body Mass Index (BMI) 26.8 Intake and Output for Last 24 Hours 08/14/18 08/15/18 08/16/18 23:59 23:59 23:59 Intake Total 2668 / 2668 1806 / 1806 Output Total 325 / 325 1900 / 1900 Balance 2343 / 2343 -94 / -94 Microbiology Past 72 Hours 08/15/18 05:10 Stool Occult Blood (MAHESH) - Final Stool Occult Blood Positive Laboratory Tests Past 24 Hrs 08/14/18 08/16/18 08/16/18 20:10 01:00 06:46 WBC RBC Hgb 9.0 L Hct 29.5 L MCV MCH MCHC RDW RDW Differential Plt Count MPV Immature Gran % (Auto) Neut % (Auto) Lymph % (Auto) [place] % (Auto) Eos % (Auto) Baso % (Auto) Absolute Neuts (auto) Absolute Lymphs (auto) Total Counted Platelet Estimate Polychromasia Hypochromasia Anisocytosis Microcytosis Macrocytosis Sodium Potassium Chloride Carbon Dioxide Anion Gap BUN Creatinine Estim Creat Clear Calc Est GFR (MDRD) Af Amer Est GFR (MDRD) Non-Af BUN/Creatinine Ratio Glucose Calcium Phosphorus Cortisol Thyroglobulin Antibody Pending Thyroid Peroxidase Ab Pending Blood Type B POSITIVE Antibody Screen NEGATIVE Crossmatch See Detail 08/16/18 08/16/18 08/16/18 06:46 06:46 06:46 WBC 9.0 RBC 4.43 Hgb 9.2 L Hct 29.9 L MCV 67.5 L MCH 20.8 L MCHC 30.8 L RDW 24.1 H RDW Differential 58.2 H Plt Count 311 MPV 9.5 Immature Gran % (Auto) 0.300 Neut % (Auto) 57.5 Lymph % (Auto) 30.6 [place] % (Auto) 8.1 Eos % (Auto) 3.2 Baso % (Auto) 0.3 Absolute Neuts (auto) 5.2 Absolute Lymphs (auto) 2.75 Total Counted Not Reportable Platelet Estimate ADEQUATE Polychromasia 1+ Hypochromasia 2+ Anisocytosis 2+ Microcytosis 2+ Macrocytosis RARE Sodium 136 Potassium 4.7 Chloride 103 Carbon Dioxide 26.0 Anion Gap 7 BUN 13 Creatinine 0.80 Estim Creat Clear Calc 51.04 Est GFR (MDRD) Af Amer 90 Est GFR (MDRD) Non-Af 74 BUN/Creatinine Ratio 16.2 Glucose 209 H Calcium 8.8 Phosphorus 2.6 Cortisol Pending Thyroglobulin Antibody Thyroid Peroxidase Ab Blood Type Antibody Screen Crossmatch POC Glucose 08/16/18 08/15/18 08/15/18 05:54 23:54 16:50 POC Glucose 229 H 168 H 153 H 08/15/18 12:48 POC Glucose 274 H Medical Necessity - Tobacco Use Smoking Status: Former smoker Tobacco Use: Non-smoker Assessment/Plan All Active Problems (Last Reviewed 08/14/18 @ 17:39 by Connor Skaggs DO) Acute renal failure (Acute) Hyponatremia (Acute) Anemia (Acute) 73-year-old female with anemia 1. I reviewed the patient's operative report from [facility]. They were unable to reach her right colon during that procedure due to poor prep. Thus the right colon has never been examined. 2. I gave 2 double doses of MiraLAX yesterday as well as a soapsuds enema. I will do a full 4 L GoLYTELY prep today. If needed I will do another full 4 L of GoLYTELY tomorrow. Once she is having clear stools I will schedule her for colonoscopy and EGD. Tomasz Umaña MD Pager: [facility] [address] [place] [address], [address] [place] [phone] Office:
--- NOTE | 2018-08-16 08:38 | RAD_ITS ---
STUDY: X-RAY - ABDOMEN/PELVIS REASON FOR EXAM: Female, 73 years old. Constipation. TECHNIQUE: Two AP supine views of the abdomen and pelvis. COMPARISON: Comparison is made with prior study dated May 07, 2018. FINDINGS: Normal visualized lung bases. There is an abundance of fecal material throughout the colon. The visualized liver, spleen and kidneys are grossly normal in size and morphology. Normal soft tissue structures. Normal visualized osseous structures. RAD/Abdomen Single View IMPRESSION: Large amount of fecal material is seen in the colon. Electronically Signed: Robert Randall MD at 14:17 EST Tel [phone], Service support ,
[2018-08-16] MEDS: 0.9% NaCl Peripheral Flush Adult/Peds IV ×2 (09:28→14:49)
[2018-08-16] MEDS: Electrolyte Solution/Peg's 4000 ML PO (11:46)
--- NOTE | 2018-08-16 11:55 | CASEMGMT ---
RN MANJEET Face to Face with patient for initial transition planning/care coordination assessment. RN MANJEET introduced self and role at [facility]. Patient lying in bed, alert and oriented, daughter at bedside. Patient willing to participate in assessment and is able to answer all questions appropriately. Care providers, pharmacy, and demographics verified. Patient wishes to discharge home and would like setup with [facility] for HHC. Patient states she has no further needs or concerns at this time. Referral sent to [facility] for penitentiary and PT/OT. Patient also requesting rollator for at home. CM to obtain script for rollator and setup with in-network DME. CM to follow for discharge planning needs that may arise. PCP: Ramone Smiley Specialists:Debo Suresh Pharmacy: [facility] Insurance: [employer] PPO Prescription Benefit: [employer] [facility] PPO Living Will/HPOA: Yes, Sarita Pollard HPOA LNOK: and daughter Living Arrangements: Patient lives with in [place], patient independent at home. Transportation: /Family DME/HHC: Patient states she has raised toilet seat, cane, and grab bars at home. Patient requesting rollator for at home. Patient would like HHC with [facility], referral sent Disposition Plan: Patient to discharge home with HHC, family support, and follow-up plans in place. Marley LAYTON, RN, CM
[2018-08-16 12:15] LABS: Bedside Glucose 398 mg/dL (70-110)
[2018-08-16 17:41] LABS: Bedside Glucose 204 mg/dL (70-110)
--- NOTE | 2018-08-16 18:30 | PN_ITS ---
Patient Problems: Active and Suspected Problems (Last Reviewed 08/14/18 @ 17:39 by Connor Skaggs DO) Acute renal failure (Acute) Hyponatremia (Acute) Anemia (Acute) Subjective: All events of the past 24 hours of been reviewed. She is afebrile today and vital signs are stable. She is 96-100% saturated on room air. All lab was personally reviewed. Acute renal failure has resolved and her creatinine today is 0.8. Electrolytes are within normal limits. A.m. cortisol is normal at 11 TSH was low at 0.01 but T4 and free T3 are within normal limits. Antithyroid antibodies are pending. Hemoglobin is stable at 9.2. White blood cell count is within normal limits and the differential is unremarkable. KUB today still showed a very large accumulation of stool and she was given a soapsuds enema with excellent results. She is going to start GoLYTELY today. She denies shortness of breath and also denies abdominal pain. She states that she feels better than she has in quite a while. She denies nausea and has had no emesis. I reviewed Dr. Umaña's note and he was able to obtain the operative report from the [facility] and they were unable to reach the right colon due to a poor prep. The right colon has never been examined. Objective: PHYSICAL EXAM: GENERAL: alert, oriented X 3, Cooperative, NAD ORAL: moist mucosa, no mucosal lesions NECK: No JVD, supple, trachea midline LUNGS: CTA, symmetric chest expansion, lying flat in bed without any shortness of breath HEART: RRR, Normal S1 and S2, no rub, no gallop ABDOMEN: soft, NT, mildly distended, BS present, no guarding with palpation EXTREMITIES: no edema, no cyanosis, no calf tenderness SKIN: No rashes, no breakdown NEUROLOGIC: no focal neurologic deficits PSYCH: appropriate, normal affect, pleasant - Physical Exam Vital Signs Temp Pulse Resp BP Pulse Ox 97.8 F 72 18 159/51 H 100 08/16/18 14:50 08/16/18 14:50 08/16/18 14:50 08/16/18 14:50 08/16/18 14:50 Oxygen Delivery Method Room Air Weight: 151 lb 7.321 oz Body Mass Index (BMI) 26.8 Intake and Output for Last 24 Hours 1208/15/18 08/16/18 23:59 23:59 23:59 Intake Total 2668 / 2668 2744 / 2744 Output Total 325 / 325 4000 / 4000 Balance 2343 / 2343 -1256 / -1256 Microbiology Past 72 Hours 08/15/18 19:00 Urine Culture - Preliminary Urine Catheter - Mccall Culture exhibits no growth. 08/15/18 05:10 Stool Occult Blood (MAHESH) - Final Stool Occult Blood Positive Laboratory Tests Past 24 Hrs 08/14/18 08/16/18 08/16/18 20:10 01:00 06:46 WBC RBC Hgb 9.0 L Hct 29.5 L MCV MCH MCHC RDW RDW Differential Plt Count MPV Immature Gran % (Auto) Neut % (Auto) Lymph % (Auto) Petroleum % (Auto) Eos % (Auto) Baso % (Auto) Absolute Neuts (auto) Absolute Lymphs (auto) Total Counted Platelet Estimate Polychromasia Hypochromasia Anisocytosis Microcytosis Macrocytosis Sodium Potassium Chloride Carbon Dioxide Anion Gap BUN Creatinine Estim Creat Clear Calc Est GFR (MDRD) Af Amer Est GFR (MDRD) Non-Af BUN/Creatinine Ratio Glucose Calcium Phosphorus Cortisol Thyroglobulin Antibody Pending Thyroid Peroxidase Ab Pending Blood Type B POSITIVE Antibody Screen NEGATIVE Crossmatch See Detail 08/16/18 08/16/18 08/16/18 06:46 06:46 06:46 WBC 9.0 RBC 4.43 Hgb 9.2 L Hct 29.9 L MCV 67.5 L MCH 20.8 L MCHC 30.8 L RDW 24.1 H RDW Differential 58.2 H Plt Count 311 MPV 9.5 Immature Gran % (Auto) 0.300 Neut % (Auto) 57.5 Lymph % (Auto) 30.6 Petroleum % (Auto) 8.1 Eos % (Auto) 3.2 Baso % (Auto) 0.3 Absolute Neuts (auto) 5.2 Absolute Lymphs (auto) 2.75 Total Counted Not Reportable Platelet Estimate ADEQUATE Polychromasia 1+ Hypochromasia 2+ Anisocytosis 2+ Microcytosis 2+ Macrocytosis RARE Sodium 136 Potassium 4.7 Chloride 103 Carbon Dioxide 26.0 Anion Gap 7 BUN 13 Creatinine 0.80 Estim Creat Clear Calc 51.04 Est GFR (MDRD) Af Amer 90 Est GFR (MDRD) Non-Af 74 BUN/Creatinine Ratio 16.2 Glucose 209 H Calcium 8.8 Phosphorus 2.6 Cortisol 11.00 Thyroglobulin Antibody Thyroid Peroxidase Ab Blood Type Antibody Screen Crossmatch POC Glucose 08/16/18 08/16/18 08/16/18 17:11 11:43 05:54 POC Glucose 204 H 398 H 229 H 08/15/18 08/15/18 23:54 16:50 POC Glucose 168 H 153 H Medical Necessity - Tobacco Use Smoking Status: Former smoker Tobacco Use: Non-smoker Assessment/Plan All Active Problems (Last Reviewed 08/14/18 @ 17:39 by Connor Skaggs DO) Acute renal failure (Acute) Hyponatremia (Acute) Anemia (Acute) Impressions 1. acute kidney injury on CRF due to dehydration likely related to uncontrolled DM II 2. urine retention - had a mccall placed at Dr. Edmondson's office on - pt is unable to do the self cath herself and there is no one at home to do this for her - she may need a suprapubic. She has a massive amount of stool accumulation and this be contributing to the difficulty emptying her bladder 3. DM II-uncontrolled 4. HTN 5. hyponatremia-resolved 6. dehydration-resolved 7. MM - due to .... Echocardiogram was repeated due to the increase in the murmur to a grade 3/6 but the echo report continues to show only mild aortic stenosis with a calculated valve area of 1.3 cm?. The murmur is likely louder secondary to the severe anemia and increased flow 8. COPD-stable 9. former smoker 10. hypercalcemia - likely due to dehydration. Resolved 11. microcytic anemia - with iron deficiency 12. Heme + stools 13. UTI vs pyelonephritis - she has N/V but no evidence of stranding on the CT of the abdomen and pelvis. Preliminary on the urine culture is no growth but she tells me that she was given an antibiotic at Dr. Edmondson's office on because the urine was foul smelling 14. Hypophosphatemia-resolved with supplementation 15. very low TSH -T3 and T4 are within normal limits and we are awaiting antithyroid antibodies. 4 L of GoLYTELY today and 4 L of GoLYTELY on Thursday and proceed with colonoscopy and EGD when the stool is clear Continue IV fluids to keep her hydrated Recheck a CBC and a BMP in the a.m. 100 mg of iron sucrose today Convert to p.o. Protonix Convert ciprofloxacin to p.o. since the fevers have resolved Code Visit Inpatient E&M: 90457 Subs Hosp L2
[2018-08-16] MEDS: Albuterol 2.5 MG/3 ML VIAL.NEB. INHALATION (20:23)
[2018-08-16] MEDS: Budesonide Respules 0.5 MG/2 ML AMPUL.NEB. INHALATION (20:23)
[2018-08-16] MEDS: Pravastatin 20 MG Tablet PO (22:51)
[2018-08-16] MEDS: Metoprolol Tartrate 25 MG Tablet PO (22:51)
[2018-08-16] MEDS: Ciprofloxacin 250 MG Tablet PO (22:52)
[2018-08-16] MEDS: MELATONIN 3 MG TABLET PO (22:52)
[2018-08-16 23:11] LABS: Bedside Glucose 144 mg/dL (70-110)
[2018-08-17] VITALS (9 sets, daily range): BP systolic 133–143; BP diastolic 50–86; PULSE 65–85; RESP 16–18; TEMP 36.6–37.1; O2SAT 94–98
[2018-08-17] MEDS: 0.9% Normal Saline 1,000 ML 100 ML IV ×2 (01:02→15:15)
[2018-08-17] MEDS: CLARIFY ORDER 1 EACH NOTE (06:39)
[2018-08-17] MEDS: Budesonide Respules 0.5 MG/2 ML AMPUL.NEB. INHALATION ×2 (06:55→19:16)
[2018-08-17] MEDS: Albuterol 2.5 MG/3 ML VIAL.NEB. INHALATION ×3 (06:55→19:16)
[2018-08-17 07:05] LABS: Bedside Glucose 83 mg/dL (70-110)
[2018-08-17 07:30] LABS: Hematocrit 32.9 % (37-47); Mean Corp Hgb Conc 30.4 g/gl (32-36); Mean Corpuscular Hgb 20.7 pg (27.0-32.0); Mean Corpuscular Volume 68.3 fL (81-99); Mean Platelet Vol. 9.2 fl (6.2-12.0); Platelet Count 333 K/mm3 (150-450); RBC Distribution Width CV 25.1 % (11.6-14.6); RBC Distribution Width SD 61.1 fl (35.1-43.9); Red Blood Count 4.82 M/mm3 (4.2-5.4); White Blood Count 9.3 K/mm3 (4.4-11.0)
[2018-08-17 07:31] LABS: Scan Indicated on CBC? Y/N YES- FLAGS NOTED
--- NOTE | 2018-08-17 07:44 | PCM.PROGNOTE ---
Patient Problems: Active and Suspected Problems (Last Reviewed 08/14/18 @ 17:39 by Connor Skaggs DO) Acute renal failure (Acute) Hyponatremia (Acute) Anemia (Acute) Subjective: #4 Cipro All events of the past 24 hours of been reviewed. Afebrile since midnight on 1216. Vital signs are stable. She is 96-98% saturated on room air with a respiratory rate of 18. She had copious stools yesterday with soapsuds enema but no stools with GoLYTELY. The prep today was changed to Gatorade and MiraLAX. She was also given Dulcolax tabs. Hemoglobin is stable and is 10.0 today. BMP is pending No adverse reaction to iron sucrose. KUB shows improvement in the amount of retained fecal material but there is still moderate fecal retention present. Denies chest pain, shortness of breath, abdominal pain, nausea, vomiting. She tells me she feels good today. - Physical Exam General: Alert, Oriented x3, Cooperative, No apparent distress HEENT: Atraumatic, PERRLA, EOMI Oral: Moist Mucosa Lungs: Clear to auscultation, Normal air movement, No rhonchi, No wheeze, No rales Cardiovascular: Regular rate, Regular Rhythm, Normal S1, Normal S2, No rub noted, No Gallop Abdomen: Soft, Non Tender, Hypoactive Bowel Sounds, Distended - Less distended than yesterday but still tympanic Extremities: No clubbing, No cyanosis, No edema Skin: No rashes, No breakdown Neurological: Cranial nerves II-XII grossly intact, Neuro grossly intact Psych/Mental Status: Normal Affect, Appropriate Vital Signs Temp Pulse Resp BP Pulse Ox 97.8 F 65 18 143/50 H 96 08/17/18 06:26 08/17/18 06:26 08/17/18 06:26 08/17/18 06:26 08/17/18 06:26 Oxygen Delivery Method Room Air Weight: 151 lb 7.321 oz Body Mass Index (BMI) 26.8 Intake and Output for Last 24 Hours 08/15/18 08/16/18 08/17/18 23:59 23:59 23:59 Intake Total 2668 / 2668 3790 / 3790 2284 / 2284 Output Total 325 / 325 4775 / 4775 3150 / 3150 Balance 2343 / 2343 -985 / -985 -866 / -866 Microbiology Past 72 Hours 08/15/18 19:00 Urine Culture - Preliminary Urine Catheter - Mccall Culture exhibits no growth. 08/15/18 05:10 Stool Occult Blood (MAHESH) - Final Stool Occult Blood Positive Laboratory Tests Past 24 Hrs 08/16/18 08/16/18 08/17/18 06:46 06:46 06:57 WBC 9.3 RBC 4.82 Hgb 10.0 L Hct 32.9 L MCV 68.3 L MCH 20.7 L MCHC 30.4 L RDW 25.1 H RDW Differential 61.1 H Plt Count 333 MPV 9.2 Sodium 136 Potassium 4.7 Chloride 103 Carbon Dioxide 26.0 Anion Gap 7 BUN 13 Creatinine 0.80 Estim Creat Clear Calc 51.04 Est GFR (MDRD) Af Amer 90 Est GFR (MDRD) Non-Af 74 BUN/Creatinine Ratio 16.2 Glucose 209 H Calcium 8.8 Phosphorus 2.6 Cortisol 11.00 08/17/18 06:57 WBC RBC Hgb Hct MCV MCH MCHC RDW RDW Differential Plt Count MPV Sodium Pending Potassium Pending Chloride Pending Carbon Dioxide Pending Anion Gap Pending BUN Pending Creatinine Pending Estim Creat Clear Calc Est GFR (MDRD) Af Amer Pending Est GFR (MDRD) Non-Af Pending BUN/Creatinine Ratio Pending Glucose Pending Calcium Pending Phosphorus Cortisol POC Glucose 08/17/18 08/16/18 08/16/18 06:23 22:54 17:11 POC Glucose 83 144 H 204 H 08/16/18 11:43 POC Glucose 398 H Medical Necessity - Tobacco Use Smoking Status: Former smoker Tobacco Use: Non-smoker Assessment/Plan All Active Problems (Last Reviewed 08/14/18 @ 17:39 by Connor Skaggs DO) Acute renal failure (Acute) Hyponatremia (Acute) Anemia (Acute) Impressions 1. acute kidney injury on CRF due to dehydration likely related to uncontrolled DM II-resolved 2. urine retention - had a mccall placed at Dr. Edmondson's office on - pt is unable to do the self cath herself and there is no one at home to do this for her - she may need a suprapubic. She has a massive amount of stool accumulation and this be contributing to the difficulty emptying her bladder. Will do a voiding trial prior to discharge 3. DM II-uncontrolled 4. HTN 5. hyponatremia-resolved 6. dehydration-resolved 7. MM - due to .... Echocardiogram was repeated due to the increase in the murmur to a grade 3/6 but the echo report continues to show only mild aortic stenosis with a calculated valve area of 1.3 cm?. The murmur is likely louder secondary to the severe anemia and increased flow 8. COPD-stable 9. former smoker 10. hypercalcemia - likely due to dehydration. Resolved 11. microcytic anemia - with iron deficiency 12. Heme + stools 13. UTI vs pyelonephritis - she has N/V but no evidence of stranding on the CT of the abdomen and pelvis. Preliminary on the urine culture is no growth but she tells me that she was given an antibiotic at Dr. Edmondson's office on because the urine was foul smelling 14. Hypophosphatemia-resolved with supplementation 15. very low TSH -T3 and T4 are within normal limits and we are awaiting antithyroid antibodies. Continue bowel prep -Dr. Umaña will perform endoscopy when stools are clear Blood sugars have ranged from 79-101 today-we will decrease Lantus to 10 units twice daily and continue with sliding scale insulin protocol. Iron sucrose 200 mg IV today Finish 5-7 days of Cipro for UTI diagnosed by Dr. Edmondson prior to admission Code Visit Inpatient E&M: 09693 Subs Hosp L2
--- NOTE | 2018-08-17 07:46 | RAD_ITS ---
STUDY: X-RAY - ABDOMEN/PELVIS REASON FOR EXAM: Female, 73 years old. Constipation. TECHNIQUE: Two AP supine views of the abdomen and pelvis. COMPARISON: Comparison is made with prior examination dated August 16, 2008. FINDINGS: Normal visualized lung bases. There is a moderate amount of colonic fecal material. This has improved as compared to prior study. The visualized liver, spleen and kidneys are grossly normal in size and morphology. There are calcified phleboliths in the pelvis. There are diffuse degenerative changes of the visualized lumbar spine. Degenerative changes of both hip joints. RAD/Abdomen Single View IMPRESSION: Moderate amount of residual fecal material in the colon although this has improved. Electronically Signed: Robert Randall MD at 14:46 EST Tel [phone], Service support ,
[2018-08-17 07:56] LABS: Anion Gap 8 (5-15); BUN 7 mg/dL (7-18); BUN/Creat Ratio 10.2 RATIO (10-20); Calcium,Total 9.3 mg/dL (8.5-10.1); Chloride 102 mmol/L (98-107); Creatinine, Serum 0.69 mg/dL (0.55-1.02); EST Glomerular Filtration Rate 89 mL/min (>60); Est Glom Filt Rate - Afr Amer 107 mL/min (>60); Estimated Creatinine Clearance 40.83 ml/min; Glucose 95 mg/dL (74-106); Sodium Level 138 mmol/L (136-145)
--- NOTE | 2018-08-17 08:22 | PCM.PN.SRG ---
Patient Problems: Active and Suspected Problems (Last Reviewed 08/14/18 @ 17:39 by Connor Skaggs DO) Acute renal failure (Acute) Hyponatremia (Acute) Anemia (Acute) Subjective: The patient is not describing any abdominal pain today. She had 4 L of GoLYTELY yesterday with no bowel movements. - Physical Exam General: Alert, Cooperative Neck: No JVD Abdomen: Soft, Non Tender, Non-Distended Vital Signs Temp Pulse Resp BP Pulse Ox 97.9 F 77 18 135/86 H 94 08/17/18 08:10 08/17/18 08:10 08/17/18 08:10 08/17/18 08:10 08/17/18 08:10 Oxygen Delivery Method Room Air Weight: 151 lb 7.321 oz Body Mass Index (BMI) 26.8 Intake and Output for Last 24 Hours 08/15/18 08/16/18 08/17/18 23:59 23:59 23:59 Intake Total 2668 / 2668 3790 / 3790 2284 / 2284 Output Total 325 / 325 4775 / 4775 3150 / 3150 Balance 2343 / 2343 -985 / -985 -866 / -866 Microbiology Past 72 Hours 08/15/18 19:00 Urine Culture - Preliminary Urine Catheter - Serna Culture exhibits no growth. 08/15/18 05:10 Stool Occult Blood (MAHESH) - Final Stool Occult Blood Positive Laboratory Tests Past 24 Hrs 08/16/18 08/17/18 08/17/18 06:46 06:57 06:57 WBC 9.3 RBC 4.82 Hgb 10.0 L Hct 32.9 L MCV 68.3 L MCH 20.7 L MCHC 30.4 L RDW 25.1 H RDW Differential 61.1 H Plt Count 333 MPV 9.2 Differential Comment COMMENT Sodium 138 Potassium 4.0 Chloride 102 Carbon Dioxide 28.0 Anion Gap 8 BUN 7 Creatinine 0.69 Estim Creat Clear Calc 40.83 Est GFR (MDRD) Af Amer 107 Est GFR (MDRD) Non-Af 89 BUN/Creatinine Ratio 10.2 Glucose 95 Calcium 9.3 Cortisol 11.00 POC Glucose 08/17/18 08/16/18 08/16/18 06:23 22:54 17:11 POC Glucose 83 144 H 204 H 08/16/18 11:43 POC Glucose 398 H Medical Necessity - Tobacco Use Smoking Status: Former smoker Tobacco Use: Non-smoker Assessment/Plan All Active Problems (Last Reviewed 08/14/18 @ 17:39 by Connor Skaggs DO) Acute renal failure (Acute) Hyponatremia (Acute) Anemia (Acute) 73-year-old female with iron deficiency anemia 1. Patient is undergoing a bowel prep for possible EGD and colonoscopy once she is having clear stools. I gave her 2 L of GoLYTELY yesterday with no bowel movements. I will give her an entire bottle of MiraLAX mixed into 2 bottles of Gatorade which is my outpatient bowel prep today. I will also give her p.o. Dulcolax. 2. I performed a rectal exam today there is no impacted stool in the rectum. Tomasz Umaña MD Pager: [facility] [address] [place] [address], [address] [place] [address] Office:
[2018-08-17] MEDS: Pantoprazole Sodium 40 MG Tablet PO (09:00)
[2018-08-17] MEDS: Magnesium Oxide 400 MG Tablet PO ×2 (09:00→17:33)
[2018-08-17] MEDS: Multivitamins,Therapeutic Tablet 1 TABLET PO (09:00)
[2018-08-17] MEDS: dilTIAZem CD 180 MG Capsule PO (09:00)
[2018-08-17] MEDS: Lisinopril 20 MG Tablet PO (09:00)
[2018-08-17] MEDS: Calcium Carbonate 500 MG Tablet PO (09:00)
[2018-08-17] MEDS: Metoprolol Tartrate 25 MG Tablet PO ×2 (09:00→21:03)
[2018-08-17] MEDS: Ciprofloxacin 250 MG Tablet PO ×2 (09:00→21:03)
[2018-08-17] MEDS: Bisacodyl 5 MG Tablet 20 MG PO (09:01)
[2018-08-17] MEDS: Insulin Lispro 100 UNIT/ML INSULN.PEN SC ×2 (09:01→13:41)
[2018-08-17] MEDS: Aspirin 81 MG TAB.CHEW PO (09:01)
[2018-08-17] MEDS: Lubiprostone 24 MCG Capsule PO ×2 (09:01→17:33)
[2018-08-17] MEDS: Polyethylene Glycol 3350 17 GM PACKET 238 GM PO (09:05)
[2018-08-17] MEDS: Polyethylene Glycol 3350 17 GM PACKET PO (10:53)
[2018-08-17 11:56] LABS: Bedside Glucose 101 mg/dL (70-110)
[2018-08-17] MEDS: Heparin Injection (Vial) 5,000 UNIT/ML VIAL 5000 UNIT SC ×2 (13:41→21:03)
[2018-08-17 16:45] LABS: Bedside Glucose 79 mg/dL (70-110)
[2018-08-17 17:14] LABS: Thyroid Peroxidase AB 12 IU/mL (0-34)
[2018-08-17] MEDS: Pravastatin 20 MG Tablet PO (21:03)
[2018-08-17] MEDS: MELATONIN 3 MG TABLET PO (21:03)
[2018-08-18] VITALS (10 sets, daily range): BP systolic 114–161; BP diastolic 60–70; PULSE 63–76; RESP 16–18; TEMP 36.8–37.2; O2SAT 94–99
[2018-08-18 00:15] LABS: Bedside Glucose 81 mg/dL (70-110)
[2018-08-18] MEDS: 0.9% Normal Saline 1,000 ML 100 ML IV ×2 (01:43→21:17)
--- NOTE | 2018-08-18 05:55 | RAD_ITS ---
STUDY: X-RAY - ABDOMEN/PELVIS REASON FOR EXAM: Female, 73 years old. Constipation. TECHNIQUE: AP supine abdomen. COMPARISON: August 17, 2018. August 16, 2018. FINDINGS: Normal visualized lung bases. There is an unremarkable bowel gas pattern. Decrease stool in the colon particularly as compared to August 16, 2018. There is no demonstrated free abdominal air. The visualized liver, spleen and kidneys are grossly normal in size and morphology. Normal soft tissue structures. Multilevel degenerative changes of the lumbar spine. RAD/Abdomen Single View (Portable) IMPRESSION: Nonspecific bowel gas pattern without evidence of obstruction. Decreased stool in the colon as compared to August 16, 2018. Electronically Signed: Kareem Ornelas MD at 5:46 EST , Service support ,
[2018-08-18] MEDS: Heparin Injection (Vial) 5,000 UNIT/ML VIAL 5000 UNIT SC ×3 (06:12→21:29)
[2018-08-18 06:20] LABS: Bedside Glucose 68 mg/dL (70-110)
[2018-08-18] MEDS: Albuterol 2.5 MG/3 ML VIAL.NEB. INHALATION ×3 (06:36→19:40)
[2018-08-18] MEDS: Budesonide Respules 0.5 MG/2 ML AMPUL.NEB. INHALATION ×2 (06:36→19:40)
[2018-08-18 07:20] LABS: Bedside Glucose 162 mg/dL (70-110)
--- NOTE | 2018-08-18 08:06 | PCM.PN.SRG ---
Patient Problems: Active and Suspected Problems (Last Reviewed 08/14/18 @ 17:39 by Connor Skaggs DO) Acute renal failure (Acute) Hyponatremia (Acute) Anemia (Acute) Subjective: Patient had several bowel movements yesterday. She was having liquid bowel movement this morning. She tolerated the MiraLAX prep very well. - Physical Exam General: Alert, Oriented x3 Neck: No JVD Abdomen: Soft, Non Tender, Non-Distended Vital Signs Temp Pulse Resp BP Pulse Ox 98.6 F 64 18 161/62 H 96 08/18/18 02:58 08/18/18 06:37 08/18/18 06:37 08/18/18 02:58 08/18/18 06:37 Oxygen Delivery Method Room Air Weight: 151 lb 7.321 oz Body Mass Index (BMI) 26.8 Intake and Output for Last 24 Hours 08/16/18 08/17/18 08/18/18 23:59 23:59 23:59 Intake Total 3790 / 3790 6480 / 6480 3342 / 3342 Output Total 4775 / 4775 4275 / 4275 2600 / 2600 Balance -985 / -985 2205 / 2205 742 / 742 Microbiology Past 72 Hours 08/15/18 19:00 Urine Culture - Final Urine Catheter - Serna Culture exhibits no growth. 08/15/18 05:10 Stool Occult Blood (MAHESH) - Final Stool Occult Blood Positive Laboratory Tests Past 24 Hrs 08/17/18 06:57 Differential Comment COMMENT POC Glucose 08/18/18 08/18/18 08/17/18 07:17 06:16 21:01 POC Glucose 162 H 68 L 81 08/17/18 08/17/18 16:42 11:34 POC Glucose 79 101 Medical Necessity - Tobacco Use Smoking Status: Former smoker Tobacco Use: Non-smoker Assessment/Plan All Active Problems (Last Reviewed 08/14/18 @ 17:39 by Connor Skaggs DO) Acute renal failure (Acute) Hyponatremia (Acute) Anemia (Acute) 73-year-old female with constipation and anemia 1. The patient had a KUB this morning which shows much of the stool load being improved. The patient had a liquid bowel movement this morning. It was still not see-through but it was very liquid with no solids. 2. I will repeat the MiraLAX bowel prep this morning. Once she is having clear see through stools she can stop the bowel prep. I have added around for an upper and lower scope tomorrow. N.p.o. after midnight. 3. I explained endoscopy in detail to the patient. I explained the risks including but not limited to stroke or heart attack with anesthesia, perforation of the GI tract, bleeding, infection. I explained that any of these could necessitate further emergency surgery. The patient understands and all questions were answered sufficiently. The patient wishes to proceed with procedure. Tomasz Umaña MD Pager: [facility] [address] [place] [address], [address] [place] [address] Office:
[2018-08-18] MEDS: Lubiprostone 24 MCG Capsule PO ×2 (08:35→17:51)
[2018-08-18] MEDS: Aspirin 81 MG TAB.CHEW PO (08:35)
[2018-08-18] MEDS: Magnesium Oxide 400 MG Tablet PO ×2 (08:35→17:51)
[2018-08-18] MEDS: Ciprofloxacin 250 MG Tablet PO ×2 (10:35→21:29)
[2018-08-18] MEDS: dilTIAZem CD 180 MG Capsule PO (10:35)
[2018-08-18] MEDS: Metoprolol Tartrate 25 MG Tablet PO ×2 (10:38→21:30)
[2018-08-18] MEDS: 0.9% NaCl Peripheral Flush Adult/Peds IV (10:39)
[2018-08-18] MEDS: Pantoprazole Sodium 40 MG Tablet PO (10:39)
[2018-08-18] MEDS: Calcium Carbonate 500 MG Tablet PO (10:39)
[2018-08-18] MEDS: Lisinopril 20 MG Tablet PO (10:39)
[2018-08-18] MEDS: Multivitamins,Therapeutic Tablet 1 TABLET PO (10:39)
[2018-08-18] MEDS: Polyethylene Glycol 3350 17 GM PACKET 238 GM PO (10:40)
[2018-08-18] MEDS: Bisacodyl 5 MG Tablet 20 MG PO (10:44)
[2018-08-18] MEDS: Bisacodyl 5 MG Tablet PO (10:44)
[2018-08-18 11:21] LABS: Thyroglobulin Antibody < 1.0 IU/mL (0.0-0.9)
[2018-08-18 12:25] LABS: Bedside Glucose 133 mg/dL (70-110)
[2018-08-18] MEDS: Acetaminophen 325 MG Tablet 650 MG PO ×2 (13:30→21:17)
--- NOTE | 2018-08-18 16:28 | PCM.PROGNOTE ---
Patient Problems: Active and Suspected Problems (Last Reviewed 08/14/18 @ 17:39 by Connor Skaggs DO) Acute renal failure (Acute) Hyponatremia (Acute) Anemia (Acute) Subjective: All events of the past 24 Hours have been reviewed Antibiotic day #5 VS: Stable TMAX -afebrile Blood sugars -well controlled Subjective: No complaints today. She denies shortness of breath, abdominal pain, nausea. She continues to have bowel movements with the MiraLAX prep and Gatorade. She states she feels very well. Objective: PHYSICAL EXAM: GENERAL: alert, oriented X 3, Cooperative, NAD ORAL: moist mucosa, no mucosal lesions NECK: No JVD, supple, trachea midline LUNGS: CTA, symmetric chest expansion HEART: RRR, Normal S1 and S2, no rub, no gallop ABDOMEN: soft, NT, ND, BS present, no guarding with palpation EXTREMITIES: no edema, no cyanosis, no calf tenderness SKIN: No rashes, no breakdown NEUROLOGIC: no focal neurologic deficits PSYCH: appropriate, normal affect, pleasant - Physical Exam Vital Signs Temp Pulse Resp BP Pulse Ox 98.2 F 69 18 137/66 H 99 08/18/18 15:46 08/18/18 15:46 08/18/18 15:46 08/18/18 15:46 08/18/18 15:46 Oxygen Delivery Method Room Air Weight: 151 lb 7.321 oz Body Mass Index (BMI) 26.8 Intake and Output for Last 24 Hours 08/16/18 08/17/18 08/18/18 23:59 23:59 23:59 Intake Total 3790 / 3790 6480 / 6480 4517 / 4517 Output Total 4775 / 4775 4275 / 4275 3800 / 3800 Balance -985 / -985 2205 / 2205 717 / 717 Microbiology Past 72 Hours 08/15/18 19:00 Urine Culture - Final Urine Catheter - Mccall Culture exhibits no growth. Laboratory Tests Past 24 Hrs 08/16/18 06:46 Thyroglobulin Antibody < 1.0 Thyroid Peroxidase Ab 12 POC Glucose 08/18/18 08/18/18 08/18/18 11:06 07:17 06:16 POC Glucose 133 H 162 H 68 L 08/17/18 08/17/18 21:01 16:42 POC Glucose 81 79 Medical Necessity - Tobacco Use Smoking Status: Former smoker Tobacco Use: Non-smoker Assessment/Plan All Active Problems (Last Reviewed 08/14/18 @ 17:39 by Connor Skaggs DO) Acute renal failure (Acute) Hyponatremia (Acute) Anemia (Acute) Impressions 1. acute kidney injury on CRF due to dehydration likely related to uncontrolled DM II-resolved 2. urine retention - had a mccall placed at Dr. Edmondson's office on - pt is unable to do the self cath herself and there is no one at home to do this for her - she may need a suprapubic. She has a massive amount of stool accumulation and this be contributing to the difficulty emptying her bladder. Will do a voiding trial prior to discharge 3. DM II-uncontrolled 4. HTN 5. hyponatremia-resolved 6. dehydration-resolved 7. MM - due to .... Echocardiogram was repeated due to the increase in the murmur to a grade 3/6 but the echo report continues to show only mild aortic stenosis with a calculated valve area of 1.3 cm?. The murmur is likely louder secondary to the severe anemia and increased flow 8. COPD-stable 9. former smoker 10. hypercalcemia - likely due to dehydration. Resolved 11. microcytic anemia - with iron deficiency 12. Heme + stools 13. UTI vs pyelonephritis - she has N/V but no evidence of stranding on the CT of the abdomen and pelvis. Preliminary on the urine culture is no growth but she tells me that she was given an antibiotic at Dr. Edmondson's office on because the urine was foul smelling 14. Hypophosphatemia-resolved with supplementation 15. very low TSH -T3 and T4 are within normal limits and we are awaiting antithyroid antibodies. Recheck BMP, CBC with differential, magnesium and phosphorus in the a.m. Scheduled for EGD and colonoscopy with Dr. Umaña in the a.m. Following endoscopy we will DC the Mccall catheter for a voiding trial. If she is unable to urinate the patient and family have requested a consult with Dr. Robledo regarding urinary retention. Iron sucrose 200 mg IV today Discharged home on an iron supplement plus vitamin C Will need a good bowel regimen at discharge and the goal will be a bowel movement at least every other day. Code Visit Inpatient E&M: 20768 Subs Hosp L2
[2018-08-18 16:55] LABS: Bedside Glucose 130 mg/dL (70-110)
[2018-08-18] MEDS: Pravastatin 20 MG Tablet PO (21:29)
[2018-08-18] MEDS: MELATONIN 3 MG TABLET PO (21:29)
[2018-08-18 22:50] LABS: Bedside Glucose 108 mg/dL (70-110)
[2018-08-19] VITALS (13 sets, daily range): BP systolic 89–163; BP diastolic 36–60; PULSE 59–72; RESP 16–18; TEMP 36.1–37.2; O2SAT 93–100; BMI 28.5
[2018-08-19] MEDS: Heparin Injection (Vial) 5,000 UNIT/ML VIAL 5000 UNIT SC ×3 (05:25→21:02)
--- NOTE | 2018-08-19 05:55 | NURSING ---
0520 PT's blood glucose 60. 8oz orange juice given. 0540 blood glucose 133
[2018-08-19 06:00] LABS: Bedside Glucose 60 mg/dL (70-110)
[2018-08-19 06:01] LABS: Bedside Glucose 133 mg/dL (70-110)
[2018-08-19 07:23] LABS: Anion Gap 9 (5-15); BUN 3 mg/dL (7-18); BUN/Creat Ratio 4.1 RATIO (10-20); Calcium,Total 8.9 mg/dL (8.5-10.1); Chloride 109 mmol/L (98-107); Creatinine, Serum 0.73 mg/dL (0.55-1.02); EST Glomerular Filtration Rate 83 mL/min (>60); Est Glom Filt Rate - Afr Amer 100 mL/min (>60); Estimated Creatinine Clearance 40.83 ml/min; Glucose 103 mg/dL (74-106); Magnesium 1.9 mg/dL (1.6-2.6); Phosphorus 2.5 mg/dL (2.5-4.9); Potassium 3.7 mmol/L (3.5-5.1); Sodium Level 142 mmol/L (136-145)
[2018-08-19 07:24] LABS: Absolute Lymphocyte Count 2.07 X10^3/ul (0.83-4.51); Absolute Neutrophil Count 4.9 X10^3/uL (2.0-7.7); Basophil# 0.05 X10^3/uL; Basophil% 0.6 % (0-1); Differential Indicated SCAN CRITERIA MET; Eosinophil# 0.34 X10^3/uL; Eosinophils% 4.3 % (0-5); Hematocrit 29.8 % (37-47); Hemoglobin 8.9 g/dl (12.0-15.0); Lymphocyte # 2.07 X10^3/ul (4.0); Lymphocyte % 26.1 % (19-41); Mean Corp Hgb Conc 29.9 g/gl (32-36); Mean Corpuscular Hgb 20.6 pg (27.0-32.0); Mean Platelet Vol. 9.1 fl (6.2-12.0); Monocyte# 0.52 X10^3/uL; Monocyte% 6.6 % (0-10); Neutrophil # 4.94 X10^3/uL (2.7-7.7); Neutrophil % 62.4 % (47-70); POSITIVE COUNT NO; POSITIVE DIFFERENTIAL NO; POSITIVE MORPHOLOGY YES; Platelet Count 305 K/mm3 (150-450); RBC Distribution Width CV 25.4 % (11.6-14.6); RBC Distribution Width SD 62.8 fl (35.1-43.9); Red Blood Count 4.32 M/mm3 (4.2-5.4); White Blood Count 7.9 K/mm3 (4.4-11.0)
[2018-08-19 07:39] LABS: Hypochromasia 1+; Microcytosis 3+
[2018-08-19 07:40] LABS: Anisocytosis 2+; Polychromasia RARE
[2018-08-19] MEDS: Albuterol 2.5 MG/3 ML VIAL.NEB. INHALATION ×2 (07:40→19:48)
[2018-08-19] MEDS: Budesonide Respules 0.5 MG/2 ML AMPUL.NEB. INHALATION ×2 (07:40→19:48)
[2018-08-19] MEDS: 0.9% Normal Saline 1,000 ML 100 ML IV (07:41)
[2018-08-19 08:30] LABS: Bedside Glucose 99 mg/dL (70-110)
[2018-08-19] MEDS: dilTIAZem CD 180 MG Capsule PO (08:34)
[2018-08-19] MEDS: Metoprolol Tartrate 25 MG Tablet PO ×2 (08:34→21:02)
--- NOTE | 2018-08-19 08:45 | PN_ITS ---
Patient Problems: Active and Suspected Problems (Last Reviewed 08/14/18 @ 17:39 by Connor Skaggs DO) Acute renal failure (Acute) Hyponatremia (Acute) Anemia (Acute) Subjective: All events of the past 24 hours of been reviewed. Vital signs are stable. Hemoglobin today is 8.9, down from 10 on 08/17/2018. BMP today shows normal electrolytes with a BUN of 3 and a creatinine of 0.73. Phosphorus is 2.5 and the magnesium is 1.9. Blood sugars are well controlled but patient is mildly hypoglycemic in the a.m. Dr. Umaña after 1 hour was able to reach the cecum and there was a polyp in the cecum which was removed with a hot snare. The exam was otherwise unremarkable EGD showed localized moderately congested mucosa found in the gastric antrum, biopsy was taken. The exam was otherwise unremarkable. Objective: GENERAL: alert, oriented X 3, Cooperative, NAD ORAL: moist mucosa, no mucosal lesions NECK: No JVD, supple, trachea midline LUNGS: CTA, symmetric chest expansion HEART: RRR, Normal S1 and S2, no rub, no gallop ABDOMEN: soft, NT, ND, BS present, no guarding with palpation EXTREMITIES: no edema, no cyanosis, no calf tenderness SKIN: No rashes, no breakdown NEUROLOGIC: no focal neurologic deficits PSYCH: appropriate, normal affect, pleasant - Physical Exam Vital Signs Temp Pulse Resp BP Pulse Ox 98.9 F 72 18 161/49 H 95 08/19/18 08:05 08/19/18 08:34 08/19/18 08:05 08/19/18 08:34 08/19/18 08:05 Oxygen Delivery Method Room Air Weight: 160 lb 12.8 oz Body Mass Index (BMI) 28.5 Intake and Output for Last 24 Hours 08/17/18 08/18/18 08/19/18 23:59 23:59 23:59 Intake Total 6480 / 6480 8002 / 8002 1482 / 1482 Output Total 4275 / 4275 4800 / 4800 2900 / 2900 Balance 2205 / 2205 3202 / 3202 -1418 / -1418 Microbiology Past 72 Hours 08/15/18 19:00 Urine Culture - Final Urine Catheter - Mccall Culture exhibits no growth. Laboratory Tests Past 24 Hrs 08/16/18 08/19/18 08/19/18 06:46 06:46 06:46 WBC 7.9 RBC 4.32 Hgb 8.9 L Hct 29.8 L MCV 69.0 L MCH 20.6 L MCHC 29.9 L RDW 25.4 H RDW Differential 62.8 H Plt Count 305 MPV 9.1 Immature Gran % (Auto) 0.000 Neut % (Auto) 62.4 Lymph % (Auto) 26.1 [place] % (Auto) 6.6 Eos % (Auto) 4.3 Baso % (Auto) 0.6 Absolute Neuts (auto) 4.9 Absolute Lymphs (auto) 2.07 Total Counted Not Reportable Polychromasia RARE Hypochromasia 1+ Anisocytosis 2+ Microcytosis 3+ Sodium 142 Potassium 3.7 Chloride 109 H Carbon Dioxide 24.0 Anion Gap 9 BUN 3 L Creatinine 0.73 Estim Creat Clear Calc 40.83 Est GFR (MDRD) Af Amer 100 Est GFR (MDRD) Non-Af 83 BUN/Creatinine Ratio 4.1 L Glucose 103 Calcium 8.9 Phosphorus 2.5 Magnesium 1.9 Thyroglobulin Antibody < 1.0 Thyroid Peroxidase Ab 12 POC Glucose 08/19/18 08/19/18 08/19/18 08:15 05:51 05:16 POC Glucose 99 133 H 60 L 08/18/18 08/18/18 08/18/18 21:09 16:42 11:06 POC Glucose 108 130 H 133 H Medical Necessity - Tobacco Use Smoking Status: Former smoker Tobacco Use: Non-smoker Assessment/Plan All Active Problems (Last Reviewed 08/14/18 @ 17:39 by Connor Skaggs DO) Acute renal failure (Acute) Hyponatremia (Acute) Anemia (Acute) Impressions 1. acute kidney injury on CRF due to dehydration likely related to uncontrolled DM II-resolved 2. urine retention - had a mccall placed at Dr. Edmondson's office on - pt is unable to do the self cath herself and there is no one at home to do this for her - she may need a suprapubic. She has a massive amount of stool accumulation and this be contributing to the difficulty emptying her bladder. Will do a voiding trial prior to discharge 3. DM II-uncontrolled 4. HTN 5. hyponatremia-resolved 6. dehydration-resolved 7. MM - due to .... Echocardiogram was repeated due to the increase in the murmur to a grade 3/6 but the echo report continues to show only mild aortic stenosis with a calculated valve area of 1.3 cm?. The murmur is likely louder secondary to the severe anemia and increased flow 8. COPD-stable 9. former smoker 10. hypercalcemia - likely due to dehydration. Resolved 11. microcytic anemia - with iron deficiency 12. Heme + stools 13. UTI vs pyelonephritis - she has N/V but no evidence of stranding on the CT of the abdomen and pelvis. Preliminary on the urine culture is no growth but she tells me that she was given an antibiotic at Dr. Edmondson's office on because the urine was foul smelling 14. Hypophosphatemia-resolved with supplementation 15. very low TSH -T3 and T4 are within normal limits and we are awaiting antithyroid antibodies. Diet advanced to calorie controlled DC Mccall catheter for voiding trial Will need to be on a good bowel regimen to produce a bowel movement at least every other day going forward. Will need an iron supplement at discharge Diet education - if she can limit her carbohydrate intake I suspect she can be managed with oral hypoglycemic agents. Change the Lantus to 10 units in the morning and 6 units at bedtime Possible discharge in the a.m. Code Visit Inpatient E&M: 57579 [facility] Hosp L2
--- NOTE | 2018-08-19 09:01 | PCM.PN.SRG ---
Patient Problems: Active and Suspected Problems (Last Reviewed 08/14/18 @ 17:39 by Connor Skaggs DO) Acute renal failure (Acute) Hyponatremia (Acute) Anemia (Acute) Subjective: Patient is doing well this morning. She is having clear stool. - Physical Exam General: Alert, Cooperative Lungs: Clear to auscultation, Normal air movement Cardiovascular: Regular rate, Regular Rhythm Abdomen: Soft, Non Tender, Non-Distended Vital Signs Temp Pulse Resp BP Pulse Ox 98.9 F 72 18 161/49 H 95 08/19/18 08:05 08/19/18 08:34 08/19/18 08:05 08/19/18 08:34 08/19/18 08:05 Oxygen Delivery Method Room Air Weight: 160 lb 12.8 oz Body Mass Index (BMI) 28.5 Intake and Output for Last 24 Hours 08/17/18 08/18/18 08/19/18 23:59 23:59 23:59 Intake Total 6480 / 6480 8002 / 8002 1482 / 1482 Output Total 4275 / 4275 4800 / 4800 2900 / 2900 Balance 2205 / 2205 3202 / 3202 -1418 / -1418 Microbiology Past 72 Hours 08/15/18 19:00 Urine Culture - Final Urine Catheter - Serna Culture exhibits no growth. Laboratory Tests Past 24 Hrs 08/16/18 08/19/18 08/19/18 06:46 06:46 06:46 WBC 7.9 RBC 4.32 Hgb 8.9 L Hct 29.8 L MCV 69.0 L MCH 20.6 L MCHC 29.9 L RDW 25.4 H RDW Differential 62.8 H Plt Count 305 MPV 9.1 Immature Gran % (Auto) 0.000 Neut % (Auto) 62.4 Lymph % (Auto) 26.1 [place] % (Auto) 6.6 Eos % (Auto) 4.3 Baso % (Auto) 0.6 Absolute Neuts (auto) 4.9 Absolute Lymphs (auto) 2.07 Total Counted Not Reportable Polychromasia RARE Hypochromasia 1+ Anisocytosis 2+ Microcytosis 3+ Sodium 142 Potassium 3.7 Chloride 109 H Carbon Dioxide 24.0 Anion Gap 9 BUN 3 L Creatinine 0.73 Estim Creat Clear Calc 40.83 Est GFR (MDRD) Af Amer 100 Est GFR (MDRD) Non-Af 83 BUN/Creatinine Ratio 4.1 L Glucose 103 Calcium 8.9 Phosphorus 2.5 Magnesium 1.9 Thyroglobulin Antibody < 1.0 Thyroid Peroxidase Ab 12 POC Glucose 08/19/18 08/19/18 08/19/18 08:15 05:51 05:16 POC Glucose 99 133 H 60 L 08/18/18 08/18/18 08/18/18 21:09 16:42 11:06 POC Glucose 108 130 H 133 H Medical Necessity - Tobacco Use Smoking Status: Former smoker Tobacco Use: Non-smoker Assessment/Plan All Active Problems (Last Reviewed 08/14/18 @ 17:39 by Connor Skaggs DO) Acute renal failure (Acute) Hyponatremia (Acute) Anemia (Acute) 73-year-old female with anemia 1. Patient's hemoglobin did drop a gram from her last check. She did complete 4 days of bowel prep and is having clear stools at this point. I will take her for EGD and colonoscopy this morning. 2. I explained endoscopy in detail to the patient. I explained the risks including but not limited to stroke or heart attack with anesthesia, perforation of the GI tract, bleeding, infection. I explained that any of these could necessitate further emergency surgery. The patient understands and all questions were answered sufficiently. The patient wishes to proceed with procedure. Tomasz Umaña MD Pager: [facility] [address] [place] [address], [address] [place] [address] Office:
--- NOTE | 2018-08-19 09:50 | GASB_PTH ---
PATIENT: OLGA DONALDSON LOC: MS3 U#:[id number] AGE/SX: 73/F ROOM: [facility] [place] RE08/14/[address]: Dr. Kadie Skaggs DO : 1945 BED: 1 DIS: 08/20/2018 SPEC #: [id number] RECD: 08/19/18 14:03 STATUS: AHRIS KEVINEmily #: [id number] HUSSEIN: 08/19/18 09:[address]: Tomasz Umaña DEPT: SURGICAL PATHOLOGY RECD BY: Weston Farris ENTERED: 08/19/18 14:26 SP TYPE: Gastric Bx OTHR DR: MD Dr. Kadie Sheriff DO Dr. Eric Smith, MD Tissues: A - Gastric mucous membrane Cecum, NOS Procedures: Surgery Specimen Level IV Comments: @ Ordering doctor for SUIV edited from to @ by ISAI at 08/20/18 0936 @ Submitting doctor edited from to @ by DUINAOD at 08/20/18 0936 HEADER OPERATION: Colonoscopy, EGD ([facility] [place]) PRE-OP DIAGNOSIS: Iron deficiency anemia TISSUE SUBMITTED: A - Antral lesion, B - Cecal polyp MICROSCOPIC DIAGNOSIS A. Antral lesion, biopsy: A fragment of gastric mucosa with extensive congestion and reactive fibrosis. See comment. B. Cecal polyp, biopsy: Tubular adenoma. TANYA:raimundo 08/20/18 COMMENT Immunohistochemistry for Helicobacter pylori can be performed if clinically indicated. Please notify the Laboratory if it is needed. MICROSCOPIC DESCRIPTION Slides are reviewed. GROSS DESCRIPTION A - Received in fixative is one container labeled with the patient's name and designated antral lesion. The specimen consists of multiple irregular fragments of light garcía soft tissue that in aggregate measure 0.6 x 0.5 x 0.1 cm. The specimen is totally submitted in one cassette. B - Received in fixative is one container labeled with the patient's name and designated cecal polyp. The specimen consists of a gacría-pink polyp measuring 1 x 0.7 x 0.3 cm. Also present in the container are multiple fragments of garcía soft tissue mixed with fecal material measuring in aggregate 1.5 x 0.1 x 0.1 cm. The specimen is totally submitted in one cassette. / TANYA:raimundo 08/19/18 TC:1 CPT: 15936 x2
--- NOTE | 2018-08-19 11:10 | OP.ENDO_ITS ---
Patient Name: Juana Pollard Procedure Date: 08/19/2018 8:34 AM Date of : 1945 Age: 73 Procedure: Upper GI endoscopy Indications: Iron deficiency anemia Providers: Tomasz Umaña MD Referring MD: Connor Skaggs Medicines: Monitored Anesthesia Care Patient Profile: This is a 73 year old female. Refer to note in patient chart for documentation of history and physical. Complications: No immediate complications. Estimated blood loss: Minimal. Procedure: Pre-Anesthesia Assessment: - Prior to the procedure, a History and Physical was performed, and patient medications and allergies were reviewed. The patient's tolerance of previous anesthesia was also reviewed. The risks and benefits of the procedure and the sedation options and risks were discussed with the patient. All questions were answered, and informed consent was obtained. Prior Anticoagulants: The patient has taken no previous anticoagulant or antiplatelet agents. After reviewing the risks and benefits, the patient was deemed in satisfactory condition to undergo the procedure. After obtaining informed consent, the endoscope was passed under direct vision. Throughout the procedure, the patient's blood pressure, pulse, and oxygen saturations were monitored continuously. The gastroscope was introduced through the mouth, and advanced to the second part of duodenum. The upper GI endoscopy was accomplished without difficulty. The patient tolerated the procedure well. Scope In: 9:52:00 AM Scope Out: 9:56:43 AM Total Procedure Duration Time 0 hours 4 minutes 43 seconds Findings: Localized moderately congested mucosa was found in the gastric antrum. Biopsy with a hot snare on the lesser curvature of the gastric antrum was performed for histology. The exam was otherwise without abnormality. Impression: - Congestive gastropathy. - The examination was otherwise normal. - Biopsy was performed on the lesser curvature of the gastric antrum. Recommendation: - Await pathology results. - Resume previous diet. - Continue present medications. Procedure Code(s): --- Professional --- 29927, Esophagogastroduodenoscopy, flexible, transoral; with removal of tumor(s), polyp(s), or other lesion(s) by snare technique Diagnosis Code(s): --- Professional --- K31.89, Other diseases of stomach and duodenum D50.9, Iron deficiency anemia, unspecified CPT copyright 2017 [employer]. All rights reserved. The codes documented in this report are preliminary and upon bar machine operator production review may be revised to meet current compliance requirements. Tomasz Umaña MD 08/19/2018 11:09:38 AM This report has been signed electronically. Number of Addenda: 0 Note Initiated On: 08/19/2018 8:34 AM
--- NOTE | 2018-08-19 11:12 | OP.ENDO_ITS ---
Patient Name: Juana Pollard Procedure Date: 08/19/2018 9:58 AM Date of : 1945 Age: 73 Procedure: Colonoscopy Indications: Iron deficiency anemia Providers: Tomasz Umaña MD Referring MD: Connor Skaggs Medicines: Monitored Anesthesia Care Patient Profile: This is a 73 year old female. Refer to note in patient chart for documentation of history and physical. Last Colonoscopy: within the past 3 years. Complications: No immediate complications. Estimated blood loss: Minimal. Procedure: Pre-Anesthesia Assessment: - Prior to the procedure, a History and Physical was performed, and patient medications and allergies were reviewed. The patient's tolerance of previous anesthesia was also reviewed. The risks and benefits of the procedure and the sedation options and risks were discussed with the patient. All questions were answered, and informed consent was obtained. Prior Anticoagulants: The patient has taken no previous anticoagulant or antiplatelet agents. After reviewing the risks and benefits, the patient was deemed in satisfactory condition to undergo the procedure. After I obtained informed consent, the scope was passed under direct vision. Throughout the procedure, the patient's blood pressure, pulse, and oxygen saturations were monitored continuously. The colonoscope was introduced through the anus and advanced to the cecum, identified by appendiceal orifice and ileocecal valve. The colonoscopy was extremely difficult due to a redundant colon and significant looping. Successful completion of the procedure was aided by applying abdominal pressure. The patient tolerated the procedure well. The quality of the bowel preparation was good. Scope In: 10:00:05 AM Scope Withdrawal Time 0 hours 11 minutes 10 seconds Scope Out: 11:04:13 AM Total Procedure Duration Time 1 hour 4 minutes 8 seconds Findings: A polyp was found in the cecum. The polyp was semi-pedunculated. The polyp was removed with a hot snare. Resection and retrieval were complete. The exam was otherwise without abnormality on direct and retroflexion views. Impression: - One polyp in the cecum, removed with a hot snare. Resected and retrieved. - The examination was otherwise normal on direct and retroflexion views. Recommendation: - Patient has a contact number available for emergencies. The signs and symptoms of potential delayed complications were discussed with the patient. Return to normal activities tomorrow. Written discharge instructions were provided to the patient. - Resume regular diet. - Continue present medications. - Await pathology results. - Repeat colonoscopy for surveillance based on pathology results. Procedure Code(s): --- Professional --- 27763, Colonoscopy, flexible; with removal of tumor(s), polyp(s), or other lesion(s) by snare technique Diagnosis Code(s): --- Professional --- D12.0, Benign neoplasm of cecum D50.9, Iron deficiency anemia, unspecified CPT copyright 2017 [employer]. All rights reserved. The codes documented in this report are preliminary and upon medical billing coder review may be revised to meet current compliance requirements. Tomasz Umaña MD 08/19/2018 11:11:47 AM This report has been signed electronically. Number of Addenda: 0 Note Initiated On: 08/19/2018 9:58 AM
[2018-08-19 12:25] LABS: Bedside Glucose 95 mg/dL (70-110)
[2018-08-19] MEDS: Acetaminophen 325 MG Tablet 650 MG PO (13:38)
[2018-08-19] MEDS: Ciprofloxacin 250 MG Tablet PO ×2 (13:39→21:02)
[2018-08-19] MEDS: Multivitamins,Therapeutic Tablet 1 TABLET PO (13:40)
[2018-08-19] MEDS: Calcium Carbonate 500 MG Tablet PO (13:41)
[2018-08-19] MEDS: Pantoprazole Sodium 40 MG Tablet PO (13:41)
[2018-08-19] MEDS: Lisinopril 20 MG Tablet PO (13:43)
[2018-08-19 16:06] LABS: Bedside Glucose 192 mg/dL (70-110)
[2018-08-19] MEDS: Sucralfate 1 GM Tablet PO ×2 (16:25→21:02)
[2018-08-19] MEDS: Insulin Lispro 100 UNIT/ML INSULN.PEN SC ×2 (17:27→21:03)
[2018-08-19] MEDS: Lubiprostone 24 MCG Capsule PO (17:27)
[2018-08-19] MEDS: BENZOCAINE/MENTHOL 1 LOZENGE MUCOUS MEM ×2 (17:28→23:07)
[2018-08-19] MEDS: Magnesium Oxide 400 MG Tablet PO (17:28)
[2018-08-19] MEDS: Pravastatin 20 MG Tablet PO (21:02)
[2018-08-19] MEDS: MELATONIN 3 MG TABLET PO (21:02)
[2018-08-19] MEDS: 0.9% NaCl Peripheral Flush Adult/Peds IV (21:06)
[2018-08-19 21:36] LABS: Bedside Glucose 245 mg/dL (70-110)
[2018-08-20] VITALS (7 sets, daily range): BP systolic 95–161; BP diastolic 54–64; PULSE 68–77; RESP 16–19; TEMP 36.6–37.2; O2SAT 96–99
[2018-08-20] MEDS: Sucralfate 1 GM Tablet PO ×2 (06:11→11:26)
[2018-08-20] MEDS: Heparin Injection (Vial) 5,000 UNIT/ML VIAL 5000 UNIT SC ×2 (06:12→14:23)
[2018-08-20] MEDS: Budesonide Respules 0.5 MG/2 ML AMPUL.NEB. INHALATION (06:48)
[2018-08-20] MEDS: Albuterol 2.5 MG/3 ML VIAL.NEB. INHALATION (06:48)
[2018-08-20 08:06] LABS: Bedside Glucose 171 mg/dL (70-110)
[2018-08-20] MEDS: Insulin Lispro 100 UNIT/ML INSULN.PEN SC ×2 (08:07→11:26)
[2018-08-20] MEDS: Lubiprostone 24 MCG Capsule PO (08:07)
[2018-08-20] MEDS: Magnesium Oxide 400 MG Tablet PO (08:08)
[2018-08-20] MEDS: Aspirin 81 MG TAB.CHEW PO (08:08)
[2018-08-20] MEDS: dilTIAZem CD 180 MG Capsule PO (08:09)
[2018-08-20] MEDS: Ciprofloxacin 250 MG Tablet PO (08:09)
[2018-08-20] MEDS: Metoprolol Tartrate 25 MG Tablet PO (08:09)
[2018-08-20] MEDS: Multivitamins,Therapeutic Tablet 1 TABLET PO (08:10)
[2018-08-20] MEDS: Lisinopril 20 MG Tablet PO (08:10)
[2018-08-20] MEDS: Calcium Carbonate 500 MG Tablet PO (08:10)
[2018-08-20] MEDS: Pantoprazole Sodium 40 MG Tablet PO (08:10)
[2018-08-20 11:35] LABS: Bedside Glucose 210 mg/dL (70-110)
--- NOTE | 2018-08-20 12:56 | PCM.DC ---
- Discharge Diagnoses Current Active Problems: Current Active and Chronic Problems (Last Reviewed 08/14/18 @ 17:39 by Connor Skaggs DO) Acute renal failure (Acute) Chronic renal failure, stage 3 (moderate) (Chronic) Microcytic anemia (Chronic) Urine retention (Chronic) Hyponatremia (Acute) Aortic stenosis (Chronic) valve area in 2015 was 1.7cm2 Anemia (Acute) You will use the following diet at home:: Calorie/Carbohydrate Controlled (specify 1200, 1400, etc) Your food should be the consistency of: Regular Your liquids should be the consistency of: Regular/Thin Discharge Activity: Return to Normal Activity Call your doctor if you observe: Fever of 101 or Higher, Inability to have a bowel movement, Shortness of breath, Dizziness, Fainting spells, Swelling in the ankles, Chest pain, Uncontrolled pain Instructions: Treating Constipation Additional Instructions: You had a polyp when Dr. Umaña did your colonoscopy and the pathology report is still pending. You should see Dr. Umaña in the office in 7-10 days to go over the path report. NO MORE RAW RICE. You can eat cooked rice.....1/2 cup at a time. Rice will make your blood sugar go up so no more than 1/2 giovani at a time. I am placing you on Miralax and senna twice a day to help keep your bowel movements regular. I gave you a lot of iron intravenously in the hospital and I want you to stop the oral iron tablets you were taking because they cause severe constipation. Make sure to drink at least 5 8 oz glasses of water a day. Home Health will follow up with you at home for care of the mccall catheter and also to help with your medications and the diabetic diet. The aboriginal community council member's here at the hospital have a program for managing diet in diabetics. It is an excellent program and they can help you with your food choices. Allergies/Adverse Reactions: Allergies amoxicillin Allergy (Verified 08/14/18 13:44) YEAST INFECTION cephalexin monohydrate [From Keflex] Allergy (Verified 08/14/18 13:44) Rash clopidogrel bisulfate [From Plavix] Allergy (Verified 08/14/18 13:44) Other cloth tap Allergy (Uncoded 08/14/18 13:44) Other Medications to take at Discharge Lisinopril [Zestril] 40 mg PO BID 12/25/14 Aspirin [Aspirin, Baby] 81 mg PO DAILY@0800 01/21/16 Astepro 1 - 2 sprays NASAL BID 01/21/16 Sitagliptin Phosphate [Januvia] 50 mg PO DAILY 01/21/16 budesonide-formoterol HFA 160 mcg-4.5 mcg/actuation aerosol inhaler 2 puff INHALATION DAILY g 01/12/18 sodium chloride 0.65 % nasal spray aerosol 1 spray INTRANASAL Q2H PRN PRN 01/12/18 Albuterol Inhaler [Ventolin Hfa] 2 puff INHALATION Q4H PRN PRN 08/16/18 Bisacodyl [Dulcolax] 5 mg PO DAILY PRN 08/16/18 Calcium Carbonate 600 mg PO DAILY 08/16/18 Cod Liver Oil PO BREAKFAST 08/16/18 Diltiazem HCl [Cardizem LA] 180 mg PO DAILY 08/16/18 Ferrous Gluconate 325 mg PO BID 08/16/18 Lubiprostone [Amitiza] 24 mcg PO BIDCM 08/16/18 Magnesium Oxide [Mag-Ox 400] 400 mg PO BIDCM 08/16/18 Metoprolol Tartrate [Lopressor (beta jefe)] 25 mg PO BID 08/16/18 Multivitamins,Therapeutic [Multivitamin] 1 tablet PO DAILY 08/16/18 Potassium Citrate [Potassium Citrate ER] 5 meq PO BID 08/16/18 Pravastatin Sodium 20 mg PO QHS 08/16/18 Psyllium [Metamucil] 1 packet PO TID 08/16/18 proMETHazine tablet [Phenergan tablet] 12.5 mg PO Q8H PRN PRN 08/16/18 Ascorbic Acid [Vitamin C] 500 mg PO BID #60 capsule 08/20/18 Insulin Detemir [Levemir FlexPen] 25 units SC BID #0 08/20/18 Pantoprazole Sodium [Protonix] 40 mg PO DAILY #30 tablet 08/20/18 Polyethylene Glycol 3350 [Miralax] 17 gm PO BID #60 packet 08/20/18 Sennosides/Docusate Sodium [Senna-Docusate Sodium Tablet] 1 each PO BID #60 tablet 08/20/18 Sitagliptin Phosphate [Januvia] 50 mg PO DAILY #30 tablet 08/20/18 Sucralfate [Carafate] 1 gm PO 1HR_ACHS #120 tablet 08/20/18 The following prescriptions were given: Pantoprazole Sodium [Protonix] 40 mg PO DAILY #30 tablet Sitagliptin Phosphate [Januvia] 50 mg PO DAILY #30 tablet Sucralfate [Carafate] 1 gm PO 1HR_ACHS #120 tablet Ascorbic Acid [Vitamin C] 500 mg PO BID #60 capsule Polyethylene Glycol 3350 [Miralax] 17 gm PO BID #60 packet Sennosides/Docusate Sodium [Senna-Docusate Sodium Tablet] 1 each PO BID #60 tablet Primary Care Physician: Ramone Smiley MD [Primary Care Provider] - Please follow up with your Primary Care Physician in: 2-3 weeks Test Results: Test results from this visit will be discussed in further detail at your follow-up appointment, if applicable. Please Follow Up With: Tomasz Umaña MD When: 7-10 days Proposed Discharge Date: 08/20/18
--- NOTE | 2018-08-20 13:08 | PCM.DC.SUM ---
Discharge Date and Diagnosis Date of Admission: 08/14/18 Date of Discharge: 08/20/18 - Primary Discharge Diagnosis Active and Suspected Problems (Last Reviewed 08/14/18 @ 17:39 by Connor Skaggs DO) Dehydration (Acute)-resolved Acute renal failure (Acute) on chronic renal failure stage III hemoccult + stools Hyponatremia (Acute)-resolved Hypophosphatemia-resolved Urinary tract infection - resolved Hypercalcemia - resolved with hydration - Secondary Discharge Diagnosis Chronic Problems (Last Reviewed 08/14/18 @ 17:39 by Connor Skaggs DO) Former smoker (Chronic) Iron deficiency anemia (Chronic) Chronic renal failure, stage 3 (moderate) (Chronic) Urine retention (Chronic) Aortic stenosis (Chronic)-mild valve area in 2015 was 1.7cm2 COPD (chronic obstructive pulmonary disease) (Chronic) History of constipation (Chronic) Hx of venous thrombosis and embolism (Chronic) History of malignant neoplasm of breast (Chronic) Hypertension (Chronic) Type 2 diabetes mellitus (Chronic)-uncontrolled Asthma (Chronic) Hospital Course and Treatment Imaging Results: Clinical Impression(s) from Imaging Studies Abdomen/Pelvis CT 08/14/18 15:52 IMPRESSION: 1. No hydronephrosis. 2. Decompressed urinary bladder by Mccall catheter as compared to the prior study. Urinary bladder wall thickening cannot be excluded on this exam. 3. 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 Stercoral proctitis is possible. No pneumoperitoneum or ulceration. Increased since prior study. 4. Additional stable chronic changes, as above. Electronically Signed: Zechariah Redmond MD at 17:26 EST , Service support , KUB X-Ray 08/16/18 08:38 IMPRESSION: Large amount of fecal material is seen in the colon. Electronically Signed: Robert Randall MD at 14:17 EST Tel [phone], Service support , KUB X-Ray 08/17/18 07:46 IMPRESSION: Moderate amount of residual fecal material in the colon although this has improved. Electronically Signed: Robert Randall MD at 14:46 EST Tel [phone], Service support , KUB X-Ray 08/18/18 05:55 IMPRESSION: Nonspecific bowel gas pattern without evidence of obstruction. Decreased stool in the colon as compared to August 16, 2018. Electronically Signed: Kareem Ornelas MD at 5:46 EST , Service support , Laboratory Results - last 24 hr 08/19/18 08/19/18 08/20/18 16:00 20:58 07:57 POC Glucose 192 H 245 H 171 H 08/20/18 11:24 POC Glucose [address] Tomasz Umaña[facility] [facility] Operations: None Procedures: Colonoscopy - 1 polyp in the cecum-biopsy results pending, EGD - mild gastritis Summary of Care Provided: The patient is a 73 year old F with a past medical history of hypertension, COPD, breast cancer, CRF stage III, microcytic anemia, VTE, tobacco dependence and DM II who presented to the ED at [facility] on 08/14/2018 complaining of nausea, vomiting and decreased OP from a mccall catheter placed in Dr. Edmondson's office on . UA done at that time grew only yeast. Vital signs at presentation to the emergency room were temperature 97.8, pulse rate 73, blood pressure 103/35, respiratory rate 16 and she was 95-98% saturated on room air. White blood cell count was 10.4 with an unremarkable differential. Hemoglobin was 7.6 with an MCV of 62.7 and this had been declining over the past 2 years. Platelets were 424,000. Sodium was low at 126 and the chloride was low at 91. Potassium was 4.8 and the BUN was 25 with a creatinine of 1.63, up from 0.78 in May 2018. Random blood sugar was 371 and the calcium was increased to 10.5, likely secondary to dehydration. There was a very small amount of urine from the mccall at that time and it was brownish in color. She denied any fevers/chills. A noncontrasted CT of the abdomen and pelvis showed no hydronephrosis with a decompressed urinary bladder by a Mccall catheter. There was thickening of the urinary bladder wall and severe rectosigmoid fecal retention. She was admitted to the hospital with a dx of acute kidney injury on CRF stage 3 and fecal retention with N/V. IV fluids were ordered as well as iron studies, TSH. An ECHO was ordered to evaluate what sounded like an aortic MM....previously diagnosed as Mild but at the time of initial presentation the MM was a 3/6...possibly related to anemia and dehydration with flow MM. Serum iron was low at 14 and the iron saturation was 4.6 with a ferritin of 22. Sh was low at 0.01 however the T4 and free T3 were within normal limits. Cortisol was within normal limits in the a.m. at 11. The creatinine improved with hydration and on 08/16/2018 was down to 0.8. With hydration the hemoglobin dropped to 6.6 on 08/15/2018 and she received 2 units of packed red blood cells. The hemoglobin remained stable following transfusion and at discharge her hemoglobin was 8.9. A Hemoccult stool was positive and Dr. Tomasz Umaña was consulted for endoscopy. The patient received GoLYTELY, enemas, Dulcolax tablets and Gatorade with MiraLAX for 3 days until the stool was clear and on 08/19/2018 she underwent EGD and colonoscopy by Dr. Umaña. The EGD showed localized moderately congested mucosa in the gastric antrum and a biopsy was taken. The biopsy showed extensive congestion and fibrosis. Colonoscopy was performed and Dr. Umaña was able to reach the cecum. A polyp in the cecum was removed and the pathology showed a tubular adenoma. The exam was otherwise unremarkable. UA at admission had 50-100 WBCs and patient was started on an antibiotic however there was no growth from the urine and the antibiotic was discontinued. Hemoglobin A1c was 13. 7 and the patient admitted to not checking her blood sugars or taking her insulin. She also eventually admitted to eating uncooked rice daily for many years......on the third day of prep for colonoscopy she had a BM with rice present in the stool. She was treated with Lantus and SSI during her admission and the blood sugars were in the low 200's and high 100's. On the date of discharge she was afebrile with a blood pressure of 161/63, heart rate of 70 and she was 96% saturated on room air. Hemoglobin was 8.9. Electrolytes were within normal limits and the BUN was 3 with a creatinine of 0.73. She stated that she felt better than she had in years and she denied bloating, nausea, early satiety. She was discharged home on Levemir BID and Januvia. I suspect she will be more compliant with BID insulin as opposed to multiple daily doses. She was also given prescriptions for Protonix and Carafate and will follow up with Dr. Umaña in the office in 7-10 days. She was kept on a regimen of MiraLAX 17 g twice daily daily and senna ascites/docusate 1 twice daily. She was told she should be having a BM at least every other day and if she went 3 days without a BM she should take a laxative and call Dr. Smiley to increase the stool softeners. GENERAL: alert, oriented X 3, Cooperative, NAD ORAL: moist mucosa, no mucosal lesions NECK: No JVD, supple, trachea midline LUNGS: CTA, symmetric chest expansion HEART: RRR, Normal S1 and S2, no rub, no gallop ABDOMEN: soft, NT, ND, BS present, no guarding with palpation EXTREMITIES: no edema, no cyanosis, no calf tenderness SKIN: No rashes, no breakdown NEUROLOGIC: no focal neurologic deficits PSYCH: appropriate, normal affect, pleasant This note was generated with [employer] dictation software. It may contain incorrect words, spelling, and punctuation that were not noted in checking the note before signing. - Physical Exam Vital Signs Temp Pulse Resp BP Pulse Ox 98.6 F 69 18 118/54 L 99 08/20/18 08:01 08/20/18 08:09 08/20/18 08:01 08/20/18 08:09 08/20/18 08:01 Oxygen Delivery Method Room Air Weight: 160 lb 12.8 oz Body Mass Index (BMI) 28.5 Intake and Output for Last 24 Hours 08/18/18 08/19/18 08/20/18 23:59 23:59 23:59 Intake Total 8002 / 8002 3282 / 3282 1420 / 1420 Output Total 4800 / 4800 4420 / 4420 2600 / 2600 Balance 3202 / 3202 -1138 / -1138 -1180 / -1180 Microbiology Past 72 Hours 08/15/18 19:00 Urine Culture - Final Urine Catheter - Mccall Culture exhibits no growth. POC Glucose 08/20/18 08/20/18 08/19/18 11:24 07:57 20:58 POC Glucose 210 H 171 H 245 H 08/19/18 16:00 POC Glucose 192 H Discharge Activity: Return to Normal Activity Call your doctor if you observe: Fever of 101 or Higher, Inability to have a bowel movement, Shortness of breath, Dizziness, Fainting spells, Swelling in the ankles, Chest pain, Uncontrolled pain Home Medications: Medications to take at Discharge Lisinopril [Zestril] 40 mg PO BID 12/25/14 Aspirin [Aspirin, Baby] 81 mg PO DAILY@0800 01/21/16 Astepro 1 - 2 sprays NASAL BID 01/21/16 Sitagliptin Phosphate [Januvia] 50 mg PO DAILY 01/21/16 budesonide-formoterol HFA 160 mcg-4.5 mcg/actuation aerosol inhaler 2 puff INHALATION DAILY g 01/12/18 sodium chloride 0.65 % nasal spray aerosol 1 spray INTRANASAL Q2H PRN PRN 01/12/18 Albuterol Inhaler [Ventolin Hfa] 2 puff INHALATION Q4H PRN PRN 08/16/18 Bisacodyl [Dulcolax] 5 mg PO DAILY PRN 08/16/18 Calcium Carbonate 600 mg PO DAILY 08/16/18 Cod Liver Oil PO BREAKFAST 08/16/18 Diltiazem HCl [Cardizem LA] 180 mg PO DAILY 08/16/18 Ferrous Gluconate 325 mg PO BID 08/16/18 Lubiprostone [Amitiza] 24 mcg PO BIDCM 08/16/18 Magnesium Oxide [Mag-Ox 400] 400 mg PO BIDCM 08/16/18 Metoprolol Tartrate [Lopressor (beta jefe)] 25 mg PO BID 08/16/18 Multivitamins,Therapeutic [Multivitamin] 1 tablet PO DAILY 08/16/18 Potassium Citrate [Potassium Citrate ER] 5 meq PO BID 08/16/18 Pravastatin Sodium 20 mg PO QHS 08/16/18 Psyllium [Metamucil] 1 packet PO TID 08/16/18 proMETHazine tablet [Phenergan tablet] 12.5 mg PO Q8H PRN PRN 08/16/18 Ascorbic Acid [Vitamin C] 500 mg PO BID #60 capsule 08/20/18 Insulin Detemir [Levemir FlexPen] 25 units SC BID #0 08/20/18 Pantoprazole Sodium [Protonix] 40 mg PO DAILY #30 tablet 08/20/18 Polyethylene Glycol 3350 [Miralax] 17 gm PO BID #60 packet 08/20/18 Sennosides/Docusate Sodium [Senna-Docusate Sodium Tablet] 1 each PO BID #60 tablet 08/20/18 Sitagliptin Phosphate [Januvia] 50 mg PO DAILY #30 tablet 08/20/18 Sucralfate [Carafate] 1 gm PO 1HR_ACHS #120 tablet 08/20/18 Following Prescrptions Were Given to Patient: Pantoprazole Sodium [Protonix] 40 mg PO DAILY #30 tablet Sitagliptin Phosphate [Januvia] 50 mg PO DAILY #30 tablet Sucralfate [Carafate] 1 gm PO 1HR_ACHS #120 tablet Ascorbic Acid [Vitamin C] 500 mg PO BID #60 capsule Polyethylene Glycol 3350 [Miralax] 17 gm PO BID #60 packet Sennosides/Docusate Sodium [Senna-Docusate Sodium Tablet] 1 each PO BID #60 tablet Primary Care Physician: Ramone Smiley MD [Primary Care Provider] - Please follow up with your Primary Care Physician in: 2-3 weeks Please Follow Up With: Tomasz Umaña MD When: 7-10 days Patient Instructions: Treating Constipation Disposition: Home Minutes spent on discharge:: 35 Medical Necessity - Tobacco Use Smoking Status: Former smoker Tobacco Use: Non-smoker Meaningful Use Info Meaningful Use Diagnoses (Choose all that apply): None applicable Code Visit Inpatient E&M: 01063 Disch Hosp
--- NOTE | 2018-08-20 13:11 | DS.PCM_ITS ---
Discharge Date and Diagnosis Date of Admission: 08/14/18 Date of Discharge: 08/20/18 - Primary Discharge Diagnosis Active and Suspected Problems (Last Reviewed 08/14/18 @ 17:39 by Connor Skaggs DO) Dehydration (Acute)-resolved Acute renal failure (Acute) on chronic renal failure stage III hemoccult + stools Hyponatremia (Acute)-resolved Hypophosphatemia-resolved Urinary tract infection - resolved Hypercalcemia - resolved with hydration - Secondary Discharge Diagnosis Chronic Problems (Last Reviewed 08/14/18 @ 17:39 by Connor Skaggs DO) Former smoker (Chronic) Iron deficiency anemia (Chronic) Chronic renal failure, stage 3 (moderate) (Chronic) Urine retention (Chronic) Aortic stenosis (Chronic)-mild valve area in 2015 was 1.7cm2 COPD (chronic obstructive pulmonary disease) (Chronic) History of constipation (Chronic) Hx of venous thrombosis and embolism (Chronic) History of malignant neoplasm of breast (Chronic) Hypertension (Chronic) Type 2 diabetes mellitus (Chronic)-uncontrolled Asthma (Chronic) Hospital Course and Treatment Imaging Results: Clinical Impression(s) from Imaging Studies Abdomen/Pelvis CT 08/14/18 15:52 IMPRESSION: 1. No hydronephrosis. 2. Decompressed urinary bladder by Mccall catheter as compared to the prior study. Urinary bladder wall thickening cannot be excluded on this exam. 3. 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 Stercoral proctitis is possible. No pneumoperitoneum or ulceration. Increased since prior study. 4. Additional stable chronic changes, as above. Electronically Signed: Zechariah Redmond MD at 17:26 EST , Service support , KUB X-Ray 08/16/18 08:38 IMPRESSION: Large amount of fecal material is seen in the colon. Electronically Signed: Robert Randall MD at 14:17 EST Tel [phone], Service support , KUB X-Ray 08/17/18 07:46 IMPRESSION: Moderate amount of residual fecal material in the colon although this has improved. Electronically Signed: Robert Randall MD at 14:46 EST Tel [phone], Service support , KUB X-Ray 08/18/18 05:55 IMPRESSION: Nonspecific bowel gas pattern without evidence of obstruction. Decreased stool in the colon as compared to August 16, 2018. Electronically Signed: Kareem Ornelas MD at 5:46 EST , Service support , Laboratory Results - last 24 hr 08/19/18 08/19/18 08/20/18 16:00 20:58 07:57 POC Glucose 192 H 245 H 171 H 08/20/18 11:24 POC Glucose [address] Tomasz Umaña[facility] [facility] Operations: None Procedures: Colonoscopy - 1 polyp in the cecum-biopsy results pending, EGD - mild gastritis Summary of Care Provided: The patient is a 73 year old F with a past medical history of hypertension, COPD, breast cancer, CRF stage III, microcytic anemia, VTE, tobacco dependence and DM II who presented to the ED at [facility] on 08/14/2018 complaining of nausea, vomiting and decreased OP from a mccall catheter placed in Dr. Edmondson's office on . UA done at that time grew only yeast. Vital signs at presentation to the emergency room were temperature 97.8, pulse rate 73, blood pressure 103/35, respiratory rate 16 and she was 95-98% saturated on room air. White blood cell count was 10.4 with an unremarkable differential. Hemoglobin was 7.6 with an MCV of 62.7 and this had been declining over the past 2 years. Platelets were 424,000. Sodium was low at 126 and the chloride was low at 91. Potassium was 4.8 and the BUN was 25 with a creatinine of 1.63, up from 0.78 in May 2018. Random blood sugar was 371 and the calcium was increased to 10.5, likely secondary to dehydration. There was a very small amount of urine from the mccall at that time and it was brownish in color. She denied any fevers/chills. A noncontrasted CT of the abdomen and pelvis showed no hydronephrosis with a decompressed urinary bladder by a Mccall catheter. There was thickening of the urinary bladder wall and severe rectosigmoid fecal retention. She was admitted to the hospital with a dx of acute kidney injury on CRF stage 3 and fecal retention with N/V. IV fluids were ordered as well as iron studies, TSH. An ECHO was ordered to evaluate what sounded like an aortic MM....previously diagnosed as Mild but at the time of initial presentation the MM was a 3/6...possibly related to anemia and dehydration with flow MM. Serum iron was low at 14 and the iron saturation was 4.6 with a ferritin of 22. Sh was low at 0.01 however the T4 and free T3 were within normal limits. Cortisol was within normal limits in the a.m. at 11. The creatinine improved with hydration and on 08/16/2018 was down to 0.8. With hydration the hemoglobin dropped to 6.6 on 08/15/2018 and she received 2 units of packed red blood cells. The hemoglobin remained stable following transfusion and at discharge her hemoglobin was 8.9. A Hemoccult stool was positive and Dr. Tomasz Umaña was consulted for endoscopy. The patient received GoLYTELY, enemas, Dulcolax tablets and Gatorade with MiraLAX for 3 days until the stool was clear and on 08/19/2018 she underwent EGD and colonoscopy by Dr. Umaña. The EGD showed localized moderately congested mucosa in the gastric antrum and a biopsy was taken. The biopsy showed extensive congestion and fibrosis. Colonoscopy was performed and Dr. Umaña was able to reach the cecum. A polyp in the cecum was removed and the pathology showed a tubular adenoma. The exam was otherwise unremarkable. UA at admission had 50-100 WBCs and patient was started on an antibiotic however there was no growth from the urine and the antibiotic was discontinued. Hemoglobin A1c was 13. 7 and the patient admitted to not checking her blood sugars or taking her insulin. She also eventually admitted to eating uncooked rice daily for many years......on the third day of prep for colonoscopy she had a BM with rice present in the stool. She was treated with Lantus and SSI during her admission and the blood sugars were in the low 200's and high 100's. On the date of discharge she was afebrile with a blood pressure of 161/63, heart rate of 70 and she was 96% saturated on room air. Hemoglobin was 8.9. Electrolytes were within normal limits and the BUN was 3 with a creatinine of 0.73. She stated that she felt better than she had in years and she denied bloating, nausea, early satiety. She was discharged home on Levemir BID and Januvia. I suspect she will be more compliant with BID insulin as opposed to multiple daily doses. She was also given prescriptions for Protonix and Ca rafate and will follow up with Dr. Umaña in the office in 7-10 days. She was kept on a regimen of MiraLAX 17 g twice daily daily and senna ascites/docusate 1 twice daily. She was told she should be having a BM at least every other day and if she went 3 days without a BM she should take a laxative and call Dr. Smiley to increase the stool softeners. GENERAL: alert, oriented X 3, Cooperative, NAD ORAL: moist mucosa, no mucosal lesions NECK: No JVD, supple, trachea midline LUNGS: CTA, symmetric chest expansion HEART: RRR, Normal S1 and S2, no rub, no gallop ABDOMEN: soft, NT, ND, BS present, no guarding with palpation EXTREMITIES: no edema, no cyanosis, no calf tenderness SKIN: No rashes, no breakdown NEUROLOGIC: no focal neurologic deficits PSYCH: appropriate, normal affect, pleasant This note was generated with [employer] dictation software. It may contain incorrect words, spelling, and punctuation that were not noted in checking the note before signing. - Physical Exam Vital Signs Temp Pulse Resp BP Pulse Ox 98.6 F 69 18 118/54 L 99 08/20/18 08:01 08/20/18 08:09 08/20/18 08:01 08/20/18 08:09 08/20/18 08:01 Oxygen Delivery Method Room Air Weight: 160 lb 12.8 oz Body Mass Index (BMI) 28.5 Intake and Output for Last 24 Hours 08/18/18 08/19/18 08/20/18 23:59 23:59 23:59 Intake Total 8002 / 8002 3282 / 3282 1420 / 1420 Output Total 4800 / 4800 4420 / 4420 2600 / 2600 Balance 3202 / 3202 -1138 / -1138 -1180 / -1180 Microbiology Past 72 Hours 08/15/18 19:00 Urine Culture - Final Urine Catheter - Mccall Culture exhibits no growth. POC Glucose 08/20/18 08/20/18 08/19/18 11:24 07:57 20:58 POC Glucose 210 H 171 H 245 H 08/19/18 16:00 POC Glucose 192 H Discharge Activity: Return to Normal Activity Call your doctor if you observe: Fever of 101 or Higher, Inability to have a bowel movement, Shortness of breath, Dizziness, Fainting spells, Swelling in the ankles, Chest pain, Uncontrolled pain Home Medications: Medications to take at Discharge Lisinopril [Zestril] 40 mg PO BID 12/25/14 Aspirin [Aspirin, Baby] 81 mg PO DAILY@0800 01/21/16 Astepro 1 - 2 sprays NASAL BID 01/21/16 Sitagliptin Phosphate [Januvia] 50 mg PO DAILY 01/21/16 budesonide-formoterol HFA 160 mcg-4.5 mcg/actuation aerosol inhaler 2 puff INHALATION DAILY g 01/12/18 sodium chloride 0.65 % nasal spray aerosol 1 spray INTRANASAL Q2H PRN PRN 01/12/18 Albuterol Inhaler [Ventolin Hfa] 2 puff INHALATION Q4H PRN PRN 08/16/18 Bisacodyl [Dulcolax] 5 mg PO DAILY PRN 08/16/18 Calcium Carbonate 600 mg PO DAILY 08/16/18 Cod Liver Oil PO BREAKFAST 08/16/18 Diltiazem HCl [Cardizem LA] 180 mg PO DAILY 08/16/18 Ferrous Gluconate 325 mg PO BID 08/16/18 Lubiprostone [Amitiza] 24 mcg PO BIDCM 08/16/18 Magnesium Oxide [Mag-Ox 400] 400 mg PO BIDCM 08/16/18 Metoprolol Tartrate [Lopressor (beta jefe)] 25 mg PO BID 08/16/18 Multivitamins,Therapeutic [Multivitamin] 1 tablet PO DAILY 08/16/18 Potassium Citrate [Potassium Citrate ER] 5 meq PO BID 08/16/18 Pravastatin Sodium 20 mg PO QHS 08/16/18 Psyllium [Metamucil] 1 packet PO TID 08/16/18 proMETHazine tablet [Phenergan tablet] 12.5 mg PO Q8H PRN PRN 08/16/18 Ascorbic Acid [Vitamin C] 500 mg PO BID #60 capsule 08/20/18 Insulin Detemir [Levemir FlexPen] 25 units SC BID #0 08/20/18 Pantoprazole Sodium [Protonix] 40 mg PO DAILY #30 tablet 08/20/18 Polyethylene Glycol 3350 [Miralax] 17 gm PO BID #60 packet 08/20/18 Sennosides/Docusate Sodium [Senna-Docusate Sodium Tablet] 1 each PO BID #60 tablet 08/20/18 Sitagliptin Phosphate [Januvia] 50 mg PO DAILY #30 tablet 08/20/18 Sucralfate [Carafate] 1 gm PO 1HR_ACHS #120 tablet 08/20/18 Following Prescrptions Were Given to Patient: Pantoprazole Sodium [Protonix] 40 mg PO DAILY #30 tablet Sitagliptin Phosphate [Januvia] 50 mg PO DAILY #30 tablet Sucralfate [Carafate] 1 gm PO 1HR_ACHS #120 tablet Ascorbic Acid [Vitamin C] 500 mg PO BID #60 capsule Polyethylene Glycol 3350 [Miralax] 17 gm PO BID #60 packet Sennosides/Docusate Sodium [Senna-Docusate Sodium Tablet] 1 each PO BID #60 tablet Primary Care Physician: Ramone Smiley MD [Primary Care Provider] - Please follow up with your Primary Care Physician in: 2-3 weeks Please Follow Up With: Tomasz Umaña MD When: 7-10 days Patient Instructions: Treating Constipation Disposition: Home Minutes spent on discharge:: 35 Medical Necessity - Tobacco Use Smoking Status: Former smoker Tobacco Use: Non-smoker Meaningful Use Info Meaningful Use Diagnoses (Choose all that apply): None applicable Code Visit Inpatient E&M: 03926 Disch Hosp
--- NOTE | 2018-08-23 12:51 | CASEMGMT ---
RN CM Discharge Follow-up Phone Call: PRANEETH: Viviana Strata: 4 Call Date: 08/23/18 Discharge Date: 08/20/18 Time of Call: 1251 Duration: 1 min Admitting Diagnosis: LIA, anemia, hyponatremia, dehydration RN CM attempted to complete follow-up phone call after recent hospitalization. No answer, voice message left with return contact information.
--- OUTSIDE RECORDS SUMMARY | 2018-11-17 11:44 | XMS RPT_ITS ---
:1945 Author Organization OHIP Support Name Relationship Address Phone EMMA DONALDSON Unavailable [address] + [place] [address] JANEEN, MERADETH Unavailable [address] + [place] [address] R Unavailable Unavailable Unavailable ANH DONALDSONON Unavailable [address] + [place] [address] JANEEN, MERADETH Unavailable [address] + [place] [address] R Unavailable Unavailable Unavailable ANH DONALDSONON Unavailable [address] + [place] [address] JANEEN, MERADETH Unavailable [address] + [place] [address] R Unavailable Unavailable Unavailable ANIKAANHON Unavailable [address] + [place] [address] JANEEN, MERADETH Unavailable [address] + [place] [address] R Unavailable Unavailable Unavailable ANIKAANHON Unavailable [address] + [place] [address] JANEEN, MERADETH Unavailable [address] + [place] [address] R Unavailable Unavailable Unavailable ANIKA EMMA Unavailable [address] + [place] [address] JANEEN, MERADETH Unavailable [address] + [place] [address] R Unavailable Unavailable Unavailable ANIKA, EMMA Unavailable [address] + [place] [address] JANEEN, MERADETH Unavailable [address] + [place] [address] R Unavailable Unavailable Unavailable ANIKA EMMA Unavailable [address] + [place] [address] JANEEN, MERADETH Unavailable [address] + [place] [address] R Unavailable Unavailable Unavailable ANIKA EMMA Unavailable [address] + [place] [address] JANEEN, MERADETH Unavailable [address] + [place] [address] R Unavailable Unavailable Unavailable ANIKA EMMA Unavailable [address] + [place] [address] JANEEN, MERADETH Unavailable [address] + [place] [address] R Unavailable Unavailable Unavailable ANIKA, EMMA Unavailable [address] + [place] [address] JANEEN, MERADETH Unavailable [address] + [place] [address] R Unavailable Unavailable Unavailable ANIKA EMMA Unavailable [address] + [place] [address] JANEEN, MERADETH Unavailable [address] + [place] [address] R Unavailable Unavailable Unavailable ANIKA EMMA Unavailable [address] + [place] [address] JANEEN, MERADETH Unavailable [address] + [place] [address] R Unavailable Unavailable Unavailable ANIKA EMMA Unavailable [address] + [place] [address] JANEEN, MERADETH Unavailable [address] + [place] [address] R Unavailable Unavailable Unavailable ANIKA EMMA Unavailable [address] + [place] [address] JANEEN, MERADETH Unavailable [address] + [place] [address] R Unavailable Unavailable Unavailable ANIKA EMMA Unavailable [address] + [place] [address] JANEEN, MERADETH Unavailable [address] + [place] [address] R Unavailable Unavailable Unavailable ANIKA, EMMA Unavailable [address] + [place] [address] JANEEN, MERADETH Unavailable [address] + [place] [address] R Unavailable Unavailable Unavailable ANIKA, EMMA Unavailable [address] + [place] [address] JANEEN, MERADETH Unavailable [address] + [place] [address] R Unavailable Unavailable Unavailable ANIKA, EMMA Unavailable [address] + [place] [address] JANEEN, MERADETH Unavailable [address] + [place] [address] R Unavailable Unavailable Unavailable ANIKA, EMMA Unavailable [address] + [place] [address] JANEEN, MERADETH Unavailable [address] + [place] [address] R Unavailable Unavailable Unavailable ANIKA, EMMA Unavailable [address] + [place] [address] JANEEN, MERADETH Unavailable [address] + [place] [address] R Unavailable Unavailable Unavailable ANIKA, EMMA Unavailable [address] + [place] [address] JANEEN, MERADETH Unavailable [address] + [place] [address] R Unavailable Unavailable Unavailable ANIKA, EMMA Unavailable [address] + [place] [address] JANEEN, MERADETH Unavailable [address] + [place] [address] R Unavailable Unavailable Unavailable ANIKA, EMMA Unavailable [address] + [place] [address] JANEEN, MERADETH Unavailable [address] + [place] [address] R Unavailable Unavailable Unavailable ANIKA, EMMA Unavailable [address] + [place] [address] JANEEN, MERADETH Unavailable [address] [phone] [place] [address] R Unavailable Unavailable Unavailable EMMA DONALDSON Unavailable [address] + [place] [address] MARIE VERNONADEIGGY Unavailable [address] [facility] + [place] [address] R Unavailable Unavailable Unavailable Care Team Providers Name Role Phone LEE ALAMO Attending Unavailable PROVIDER, UNKNOWN Referring Unavailable Kendall, Ramone Primary Care Unavailable Sementi, Shakira Admitting Unavailable Sementi, Shakira Attending Unavailable Sementi, Shakira Referring Unavailable CalabrettaAnnieTomasz Consulting Unavailable Sementi, Shakira Admitting Unavailable Sementi, Shakira Attending Unavailable Sementi, Shakira Referring Unavailable Smiley, Ramone Primary Care Unavailable Sementi, Shakira Consulting Unavailable [...] CalabrettaAnnieTomasz Attending Unavailable Sementi, Shakira Referring Unavailable Smiley, Ramone Primary Care Unavailable Calabretta Tomasz Consulting Unavailable Sementi, Shakira Consulting Unavailable Sementi, Shakira Admitting Unavailable Sementi, Shakira Attending Unavailable Sementi, Shakira Referring Unavailable Smiley, Ramone Primary Care Unavailable Calabretta, Tomasz Consulting Unavailable Sementi, Shakira Consulting Unavailable Sementi, Shakira Admitting Unavailable CalabrettaAnnieTomasz Attending Unavailable Sementi, Shakira Referring Unavailable Smiley, Ramone Primary Care Unavailable Calabretta, Tomasz Consulting Unavailable Sementi, Shakira Consulting Unavailable Sementi, Shakira Admitting Unavailable Calabretta, Tomasz Attending Unavailable Sementi, Shakira Referring Unavailable Smiley, Ramone Primary Care Unavailable Calabretta Tomasz Consulting Unavailable Sementi, Shakira Consulting Unavailable Smiley, Ramone Attending Unavailable Smiley, Ramone Referring Unavailable Smiley, Ramone Primary Care Unavailable Smiley, Ramone Attending Unavailable Smiley, Ramone Primary Care Unavailable Smiley, Ramone Referring Unavailable JewelsOlga Attending Unavailable Smiley, Ramone Primary Care Unavailable JewelsOlga M Referring Unavailable Sementi, Shakira Admitting Unavailable Sementi, Shakira Attending Unavailable Sementi, Shakira Referring Unavailable Smiley, Ramone Primary Care Unavailable Calabretta, Tomasz Consulting Unavailable Sementi, Shakira Consulting Unavailable Smiley, Ramone Primary Care Unavailable Demetrius Arroyo Attending Unavailable Se Good Attending Unavailable Sementi, Shakira Referring Unavailable Smiley, Ramone Primary Care Unavailable Kwaku Marcial Attending Unavailable Smiley, Ramone Attending Unavailable Smiley, Ramone Referring Unavailable Smiley, Ramone Primary Care Unavailable Smiley, Ramone Attending Unavailable Smiley, Ramone Primary Care Unavailable Wellington Mullen Attending Unavailable Smiley, Ramone Primary Care Unavailable Wellington Mullen Referring Unavailable Jeyson Almonte Attending Unavailable Smiley, Ramone Referring Unavailable Smiley, Ramone Attending Unavailable Smiley, Ramone Referring Unavailable Smiley, Ramone Primary Care Unavailable Smiley, Ramone Attending Unavailable Smiley, Ramone Primary Care Unavailable Smiley, Ramone Referring Unavailable Sementi, Shakira Admitting Unavailable Sementi, Shakira [...] Unavailable Sementi, Shakira Consulting Unavailable Smiley, Ramone Primary Care Unavailable Carlos Hunt Attending Unavailable PROBLEMS PROBLEMS DATE TYPE CONDITION / CODE ATTENDING STATUS SOURCE 09/02/2018 Unknown N17.9 - Acute kidney Sementi, Active [place] failure, unspecified Shakira [facility] / N17.9(ICD-10) Hospital Repository 08/13/2018 Unknown R30.0 - Dysuria / Jewels, Active [place] R30.0(ICD-10) Olga Ryan [facility] [place] 06/14/2018 Unknown R70.0 - Elevated Ramone Smiley Active [place] erythrocyte Community sedimentation rate / Hospital R70.0(ICD-10) Repository 06/14/2018 Unknown E11.49 - Type 2 Ramone Smiley Active [place] diabetes mellitus [facility] with other diabetic Hospital neurological Repository complication / E11.49(ICD-10) 06/14/2018 Unknown 790.1 - Elevated Ramone Smiley Active [place] sedimentation rate / Community 790.1(ICD-9) Hospital Repository 06/14/2018 Unknown 250.60 - Diabetes Ramone Smiley Active [place] with neurological Community manifestations, type Hospital II or unspecified Repository type, not stated as uncontrolled / 250.60(ICD-9) 05/07/2018 Unknown R11.10 - Vomiting, Ramone Smiley Active [place] unspecified / Community R11.10(ICD-10) Hospital Repository 02/24/2018 Unknown I70.213 - Wellington Mullen Active [place] 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, bilateral legs / I70.213(ICD-10) 01/18/2018 Admitting Cutaneous abscess of [facility], [facility] hand / LEE Z System L02.511(ICD-10) Repository 01/11/2018 Unknown L03.011 - Cellulitis Ramone Smiley Active [place] of right finger / Community L03.011(ICD-10) Hospital Repository PROCEDURES PROCEDURES No Procedure Records FoundRESULTS RESULTS EMERGENCY DEPARTMENT Observed: 09/19/2018 Status: F Source: [place] SUMMARY 10:58 AM [facility] REPOSITORY [facility] Medical Records Department [address] [place] [address] Emergency Department Summary 09/19/18 0957 MR#: [id number] Acct: [id number] Name: OLGA DONALDSON Rep #: [id number] : 1945 73 From: Jose Arroyo MD [...] catheter obstruction This note was generated with Evermind dictation software. It may contain incorrect words, [...] your Primary Care Provider. Call [facility] ([phone]) or report to the closest Emergency Room. Call 911 if necessary. 09/19/18 1058 <Electronically signed by Jose Arroyo MD> Date Jose Arroyo MD Cosigner Signature (If Indicated): Date CC: Ramone Smiley MD URINALYSIS, COMPLETE Collected: 09/19/2018 Status: F Source: [place] 9:55 AM [facility] REPOSITORY Order Comment: How was Urine Obtained? 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 [place], [place], [id number] Observed: 09/19/2018 Status: F Source: [place] CULTURE, URINE 9:55 AM [facility] REPOSITORY Urine Culture ORGANISM 1: Staphylococcus epidermidis [place] Count 25,000-50,000 ORGANISM 2: Enterococcus faecalis [place] Count 25,000-50,000 Staphylococcus epidermidis: REACTION Cefoxitin *NF [...] <=0.5 S (NF) indicates non-formulary drug at [facility]. Approval by Infectious Disease Specialist required [...] 1 S (NF) indicates non-formulary drug at [facility]. Approval by Infectious Disease Specialist required before non-formulary drugs may be ordered and/or dispensed. * CLSI guidelines does not recommend testing of cephalosporins. This interpretation is deduced from Beta-lactam/penicillin results. Performed By: #### M100.0650 #### [facility] [address] [facility] [place], [address] DISCHARGE SUMMARY Observed: 08/26/2018 Status: F Source: [place] 12:46 PM [facility] REPOSITORY [facility] Medical Records Department [address] [place] [address] Discharge Summary 08/20/18 1308 MR#: [id number] Acct: [id number] Name: OLGA DONALDSON Rep #: [id number] : 1945 73 From: Connor Skaggs DO PCP: Ramone Smiley MD Status: DIS IN Y Location: NE3 [id number] Discharge Date and Diagnosis Date of Admission: [...] Robert Randall MD at 14:17 EST Tel [phone], Service support , KUB X-Ray 08/17/18 07:46 IMPRESSION: Moderate amount of residual fecal material in the colon although this has improved. Electronically Signed: Robert Randall MD at 14:46 EST Tel [phone], Service support , KUB X-Ray 08/18/18 05:55 IMPRESSION: Nonspecific bowel gas pattern without evidence of obstruction. Decreased stool in the colon as compared to August 16, 2018. Electronically Signed: Kareem Ornelas MD at 5:46 EST , Service support , Laboratory Results - last 24 hr POC Glucose 192 H 245 H 171 H POC Glucose [address] Tomasz [facility] Operations: None Procedures: Colonoscopy - 1 polyp in the cecum-biopsy results pending, EGD - mild gastritis Summary of Care Provided: The patient is a 73 year old F with a past medical history of hypertension, COPD, breast cancer, CRF stage III, microcytic anemia, VTE, tobacco dependence and DM II who presented to the ED at [facility] on 08/14/2018 complaining of nausea, vomiting and [...] affect, pleasant This note was generated with Evermind dictation software. It may contain incorrect words, [...] applicable Code Visit Inpatient E AND M: 74686 Disch Hosp 08/26/18 1246 <Electronically signed by Connor Skaggs DO> Date Connor Skaggs DO Cosigner Signature (if applicable): Date CC: Tomasz Umaña MD; Shakira Skaggs; Ramone Smiley MD Signed DISCHARGE INSTRUCTION Observed: 08/20/2018 Status: F Source: [place] 1:08 PM [facility] REPOSITORY [facility] Medical Records Department [address] [place] [address] Instructions for Home/Discharge Instructions 08/20/18 1256 MR#: [id number] Acct: [id number] Name: OLGA DONALDSON Rep #: [id number] : 1945 73 From: Connor Skaggs DO [...] your medications and the diabetic diet. 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 [place], [place] [id number] BEDSIDE GLUCOSE Collected: 08/20/2018 Status: F Source: [place] 7:57 AM [facility] REPOSITORY TYPE CODE TESTS RESULT OUT OF REFERENCE UNITS RANGE LAB L501.080 70-110 mg/dL High BEDSIDE GLU 171 Result Comment: MANAGEMENT OF PATIENT CARE PER NURSING PROTOCOL Performed By: #### L501.080 #### [facility] Point of Care [address] [place] [address] BEDSIDE GLUCOSE Collected: 08/19/2018 Status: F Source: [place] 8:58 PM [facility] REPOSITORY TYPE CODE TESTS RESULT OUT OF REFERENCE UNITS RANGE LAB L501.080 70-110 mg/dL High BEDSIDE GLU 245 Result Comment: MANAGEMENT OF PATIENT CARE PER NURSING PROTOCOL Performed By: #### L501.080 #### [facility] Point of Care [address] [place] [address] BEDSIDE GLUCOSE Collected: 08/19/2018 Status: F Source: [place] 4:00 PM [facility] REPOSITORY TYPE CODE TESTS RESULT OUT OF REFERENCE UNITS RANGE LAB L501.080 70-110 mg/dL High BEDSIDE GLU 192 Result Comment: MANAGEMENT OF PATIENT CARE PER NURSING PROTOCOL Performed By: #### L501.080 #### [facility] Point of Care [address] [place] [address] BEDSIDE GLUCOSE Collected: 08/19/2018 Status: F Source: [place] 12:11 PM [facility] REPOSITORY TYPE CODE TESTS RESULT OUT OF RANGE REFERENCE UNITS LAB L501.080 70-110 mg/dL Normal BEDSIDE GLU 95 Result Comment: MANAGEMENT OF PATIENT CARE PER NURSING PROTOCOL Performed By: #### L501.080 #### [facility] Point of Care [address] [place] [address] OPERATIVE REPORT - Observed: 08/19/2018 Status: F Source: [place] ENDOSCOPY 11:12 AM [facility] Medical Records Department [address] [place] [address] Operative Report - Endoscopy MR#: [id number] Acct: [id number] Name: OLGA DONALDSON Rep #: [id number] : 1945 73 From: Tomasz Umaña MD [...] pathology results. Procedure Code(s): --- Professional --- 90990, Colonoscopy, flexible; with removal of tumor(s), polyp(s), or other lesion(s) by snare technique Diagnosis Code(s): --- Professional --- D12.0, Benign neoplasm of cecum D50.9, Iron deficiency anemia, unspecified CPT copyright 2017 [employer]. All rights reserved. The codes documented in this report are preliminary and upon invoice coder review may be revised to meet current compliance requirements. Tomasz Umaña MD 08/19/2018 11:11:47 AM This report has been signed electronically. Number of Addenda: 0 Note Initiated On: 08/19/2018 9:58 AM 08/19/18 1111 Date Tomasz Umaña MD Cosigner Signature: Date (if indicated) CC: Tomasz Umaña MD; Shakira Skaggs; Ramone Smiley MD Date Dictated: 08/19/18 0958 Date Transcribed: Matrix Bath Attendant: WENDY Signed OPERATIVE REPORT - Observed: 08/19/2018 Status: F Source: [place] ENDOSCOPY 11:10 AM [facility] Medical Records Department [address] [place] [address] Operative Report - Endoscopy MR#: [id number] Acct: [id number] Name: OLGA DONALDSON Rep #: [id number] : 1945 73 From: Tomasz Umaña MD [...] present medications. Procedure Code(s): --- Professional --- 86912, Esophagogastroduodenoscopy, flexible, transoral; with removal of tumor(s), polyp(s), or other lesion(s) by snare technique Diagnosis Code(s): --- Professional --- K31.89, Other diseases of stomach and duodenum D50.9, Iron deficiency anemia, unspecified CPT copyright 2017 [employer]. All rights reserved. The codes documented in this report are preliminary and upon invoice coder review may be revised to meet current compliance requirements. Tomasz Umaña MD 08/19/2018 11:09:38 AM This report has been signed electronically. Number of Addenda: 0 Note Initiated On: 08/19/2018 8:34 AM 08/19/18 1109 Date Tomasz Umaña MD Cosigner Signature: Date (if indicated) CC: Tomasz Umaña MD; Shakira Skaggs; Ramone Smiley MD Date Dictated: 08/19/18 0834 Date Transcribed: Matrix Bath Attendant: WENDY Signed GASTRIC BIOPSY Observed: 08/19/2018 Status: F Source: [place] 9:50 AM [facility] REPOSITORY Patient: OLGA DONALDSON : 1945 (73/F) Acct Num: [id number] Phys: GilesShakira Unit Num: [id number] Loc: MS3 ED310-2 Specimen: [id number] Received: 08/19/18 - 1403 Spec Type: Gastric [...] one cassette. / SJ:raimundo 08/19/18 TC:1 CPT: 25296 x2 HEADER OPERATION: Colonoscopy, EGD ([place]) PRE-OP DIAGNOSIS: Iron deficiency anemia TISSUE SUBMITTED: A - Antral lesion, B - Cecal polyp MICROSCOPIC DESCRIPTION Slides are reviewed. MICROSCOPIC DIAGNOSIS A. Antral lesion, biopsy: A fragment of gastric mucosa with extensive congestion and reactive fibrosis. See comment. B. Cecal polyp, biopsy: Tubular adenoma. TANYA:raimundo 08/20/18 Signed Roberto Robins MD 08/20/18 <signature on file> Performed By: #### PGASB #### [place] [facility] [address], [address] BEDSIDE GLUCOSE Collected: 08/19/2018 Status: F Source: [place] 8:15 AM [facility] REPOSITORY TYPE CODE TESTS RESULT OUT OF RANGE REFERENCE UNITS LAB L501.080 70-110 mg/dL Normal BEDSIDE GLU 99 Result Comment: MANAGEMENT OF PATIENT CARE PER NURSING PROTOCOL Performed By: #### L501.080 #### [facility] Point of Care [address] [place] [address] BASIC METABOLIC Collected: 08/19/2018 Status: F Source: [place] PROFILE (BMP) 6:46 AM [facility] REPOSITORY TYPE CODE TESTS RESULT OUT OF [...] Performed By: #### L500.2500, L501.2300, L501.5200 #### [facility] [address] [place], [address] PHOSPHORUS Collected: 08/19/2018 Status: F Source: [place] 6:46 AM [facility] REPOSITORY TYPE CODE TESTS RESULT OUT OF RANGE REFERENCE UNITS LAB L501.2300 2.5-4.9 mg/dL Normal PHOS 2.5 Performed By: #### L500.2500, L501.2300, L501.5200 #### [facility] [address] [place], [address] MAGNESIUM Collected: 08/19/2018 Status: F Source: [place] 6:46 AM [facility] REPOSITORY TYPE CODE TESTS RESULT OUT OF RANGE REFERENCE UNITS LAB L501.5200 1.6-2.6 mg/dL Normal MG 1.9 Performed By: #### L500.2500, L501.2300, L501.5200 #### [facility] [address] [place], [address] CBC W/DIFF, AUTOMATED Collected: 08/19/2018 Status: F Source: [place] 6:46 AM [facility] REPOSITORY TYPE CODE TESTS RESULT OUT OF [...] Normal 3+ Performed By: #### L100.0100 #### [facility] [address] [facility] [place], [address] BEDSIDE GLUCOSE Collected: 08/19/2018 Status: F Source: [place] 5:51 AM [facility] REPOSITORY TYPE CODE TESTS RESULT OUT OF REFERENCE UNITS RANGE LAB L501.080 70-110 mg/dL High BEDSIDE GLU 133 Result Comment: MANAGEMENT OF PATIENT CARE PER NURSING PROTOCOL Performed By: #### L501.080 #### [facility] Point of Care [address] [facility] [place] [address] BEDSIDE GLUCOSE Collected: 08/19/2018 Status: F Source: [place] 5:16 AM [facility] REPOSITORY TYPE CODE TESTS RESULT OUT OF REFERENCE UNITS RANGE LAB L501.080 70-110 mg/dL Low BEDSIDE GLU 60 Result Comment: MANAGEMENT OF PATIENT CARE PER NURSING PROTOCOL Performed By: #### L501.080 #### [facility] Point of Care [address] [facility] [place] [address] BEDSIDE GLUCOSE Collected: 08/18/2018 Status: F Source: [place] 9:09 PM [facility] REPOSITORY TYPE CODE TESTS RESULT OUT OF RANGE REFERENCE UNITS LAB L501.080 70-110 mg/dL Normal BEDSIDE GLU 108 Result Comment: MANAGEMENT OF PATIENT CARE PER NURSING PROTOCOL Performed By: #### L501.080 #### [facility] Point of Care [address] [place] [address] BEDSIDE GLUCOSE Collected: 08/18/2018 Status: F Source: [place] 4:42 PM [facility] REPOSITORY TYPE CODE TESTS RESULT OUT OF REFERENCE UNITS RANGE LAB L501.080 70-110 mg/dL High BEDSIDE GLU 130 Result Comment: MANAGEMENT OF PATIENT CARE PER NURSING PROTOCOL Performed By: #### L501.080 #### [facility] Point of Care [address] [place] [address] BEDSIDE GLUCOSE Collected: 08/18/2018 Status: F Source: [place] 11:06 AM [facility] REPOSITORY TYPE CODE TESTS RESULT OUT OF REFERENCE UNITS RANGE LAB L501.080 70-110 mg/dL High BEDSIDE GLU 133 Result Comment: MANAGEMENT OF PATIENT CARE PER NURSING PROTOCOL Performed By: #### L501.080 #### [facility] Point of Care [address] [place] [address] BEDSIDE GLUCOSE Collected: 08/18/2018 Status: F Source: [place] 7:17 AM [facility] REPOSITORY TYPE CODE TESTS RESULT OUT OF REFERENCE UNITS RANGE LAB L501.080 70-110 mg/dL High BEDSIDE GLU 162 Result Comment: MANAGEMENT OF PATIENT CARE PER NURSING PROTOCOL Performed By: #### L501.080 #### [facility] Point of Care [address] [place] [address] BEDSIDE GLUCOSE Collected: 08/18/2018 Status: F Source: [place] 6:16 AM [facility] REPOSITORY TYPE CODE TESTS RESULT OUT OF REFERENCE UNITS RANGE LAB L501.080 70-110 mg/dL Low BEDSIDE GLU 68 Result Comment: MANAGEMENT OF PATIENT CARE PER NURSING PROTOCOL Performed By: #### L501.080 #### [facility] Point of Care [address] [place] [address] ABDOMEN SINGLE VIEW Observed: 08/18/2018 Status: F Source: [place] (PORTABLE) 12:00 AM [facility] REPOSITORY [facility] Imaging Services [address] [place] [address] Abdomen Single View (Portable) MR#: [id number] Acct: [id number] Name: OLGA DONALDSON Rep #: [id number] : 1945 F 73 From: Kareem Ornelas PCP: Ramone Smiley MD Status: ADM IN Study: Abdomen Single View (Portable) Date of Exam: 08/18/18 Exam# [id number] Ordering Dr: Tomasz Umaña MD STUDY: X-RAY [...] CC: Tomasz Umaña MD; Ramone Smiley MD Matrix Bath Attendant: Signed BEDSIDE GLUCOSE Collected: 08/17/2018 Status: F Source: [place] 9:01 PM [facility] REPOSITORY TYPE CODE TESTS RESULT OUT OF RANGE REFERENCE UNITS LAB L501.080 70-110 mg/dL Normal BEDSIDE GLU 81 Result Comment: MANAGEMENT OF PATIENT CARE PER NURSING PROTOCOL Performed By: #### L501.080 #### [facility] Point of Care [address] [place] [address] BEDSIDE GLUCOSE Collected: 08/17/2018 Status: F Source: [place] 4:42 PM [facility] REPOSITORY TYPE CODE TESTS RESULT OUT OF RANGE REFERENCE UNITS LAB L501.080 70-110 mg/dL Normal BEDSIDE GLU 79 Result Comment: MANAGEMENT OF PATIENT CARE PER NURSING PROTOCOL Performed By: #### L501.080 #### [facility] Point of Care [address] [place] [address] BEDSIDE GLUCOSE Collected: 08/17/2018 Status: F Source: [place] 11:34 AM [facility] REPOSITORY TYPE CODE TESTS RESULT OUT OF RANGE REFERENCE UNITS LAB L501.080 70-110 mg/dL Normal BEDSIDE GLU 101 Result Comment: MANAGEMENT OF PATIENT CARE PER NURSING PROTOCOL Performed By: #### L501.080 #### [facility] Point of Care [address] [place] [address] ABDOMEN SINGLE VIEW Observed: 08/17/2018 Status: F Source: JAQU[place] 7:47 AM [facility] REPOSITORY [facility] Imaging Services [address] [place] [address] Abdomen Single View MR#: [id number] Acct: [id number] Name: OLGA DONALDSON Rep #: [id number] : 1945 F 73 From: Robert Randall MD PCP: Ramone Smiley MD Status: ADM IN Study: Abdomen Single View Date of Exam: 08/17/18 Exam# [id number] Ordering Dr: Connor Skaggs DO STUDY: X-RAY [...] Robert Randall MD at 14:46 EST Tel [phone], Service support , CC: Shakira Skaggs; Ramone Smiley MD Matrix Bath Attendant: Signed CBC-COMPLETE BLOOD CNT Collected: 08/17/2018 Status: F Source: JAQU[place] NO DIFF 6:57 AM [facility] REPOSITORY TYPE CODE TESTS RESULT OUT OF [...] 9.2 Performed By: #### L100.0500, L100.4500 #### [facility] [address] [place], [place], [address] DIFFERENTIAL COMMENT Collected: 08/17/2018 Status: F Source: [place] 6:57 AM [facility] REPOSITORY TYPE CODE TESTS RESULT OUT OF RANGE REFERENCE UNITS LAB L100.4500 Normal SMEAR COMMENT COMMENT Result Comment: SLIDE SCANNED - 1+ ANISO, 1+ HYPOCHROMIA. Performed By: #### L100.0500, L100.4500 #### [facility] [address] [place], [place], [address] BASIC METABOLIC Collected: 08/17/2018 Status: F Source: [place]QU[place] PROFILE (BMP) 6:57 AM [facility] REPOSITORY TYPE CODE TESTS RESULT OUT OF [...] GAP 8 Performed By: #### L500.2500 #### [facility] [address] [place], [place], [address] BEDSIDE GLUCOSE Collected: 08/17/2018 Status: F Source: [place] 6:23 AM [facility] REPOSITORY TYPE CODE TESTS RESULT OUT OF RANGE REFERENCE UNITS LAB L501.080 70-110 mg/dL Normal BEDSIDE GLU 83 Result Comment: MANAGEMENT OF PATIENT CARE PER NURSING PROTOCOL Performed By: #### L501.080 #### [facility] Point of Care [address] [place], [place] [address] BEDSIDE GLUCOSE Collected: 08/16/2018 Status: F Source: [place] 10:54 PM [facility] REPOSITORY TYPE CODE TESTS RESULT OUT OF REFERENCE UNITS RANGE LAB L501.080 70-110 mg/dL High BEDSIDE GLU 144 Result Comment: MANAGEMENT OF PATIENT CARE PER NURSING PROTOCOL Performed By: #### L501.080 #### [facility] Point of Care [address] [place] [address] BEDSIDE GLUCOSE Collected: 08/16/2018 Status: F Source: [place] 5:11 PM [facility] REPOSITORY TYPE CODE TESTS RESULT OUT OF REFERENCE UNITS RANGE LAB L501.080 70-110 mg/dL High BEDSIDE GLU 204 Result Comment: MANAGEMENT OF PATIENT CARE PER NURSING PROTOCOL Performed By: #### L501.080 #### [facility] Point of Care [address] [place] [address] ECHOCARDIOGRAM COMPLETE Observed: 08/16/2018 Status: F Source: [place] 1:55 PM [facility] REPOSITORY [facility] Cardiovascular Services [address] [place] [address] Echo Complete 08/16/18 1123 MR#: [id number] Acct: [id number] Name: OLGA DONALDSON Rep #: [id number] : 1945 73 From: Se Good MD Attending Dr: Shakira Skaggs Status: ADM IN Ordering Dr: Connor Skaggs DO Date: 08/14/18 Location: [facility] Sex: F AA Admitted: 08/14/18 Reason For [...] Performed By: Margot Cleary, DALIA, RVT 08/16/18 6515 Date Se Good MD CC: Shakira Skaggs; Ramone Smiley MD Date Dictated: 08/16/18 1123 Date Transcribed: 08/16/18 1355 Matrix Bath Attendant: Signed BEDSIDE GLUCOSE Collected: 08/16/2018 Status: F Source: [place] 11:43 AM [facility] REPOSITORY TYPE CODE TESTS RESULT OUT OF REFERENCE UNITS RANGE LAB L501.080 70-110 mg/dL High BEDSIDE GLU 398 Result Comment: MANAGEMENT OF PATIENT CARE PER NURSING PROTOCOL Performed By: #### L501.080 #### [facility] Point of Care [address] [place] [address] ABDOMEN SINGLE VIEW Observed: 08/16/2018 Status: F Source: [place] 8:12 AM [facility] REPOSITORY [facility] Imaging Services [address] [place] [address] Abdomen Single View MR#: [id number] Acct: [id number] Name: OLGA DONALDSON Rep #: [id number] : 1945 F 73 From: Robert Randall MD PCP: Ramone Smiley MD Status: ADM IN Study: Abdomen Single View Date of Exam: 08/16/18 Exam# [id number] Ordering Dr: Tomasz Umaña MD STUDY: X-RAY [...] Robert Randall MD at 14:17 EST Tel [phone], Service support , CC: Tomasz Umaña MD; Ramone Smiley MD Matrix Bath Attendant: Signed CBC W/DIFF, AUTOMATED Collected: 08/16/2018 Status: F Source: [place] 6:46 AM [facility] REPOSITORY TYPE CODE TESTS RESULT OUT OF [...] Normal RARE Performed By: #### L100.0100 #### [facility] [address] [facility] [place], [place], [address] BASIC METABOLIC Collected: 08/16/2018 Status: F Source: [place] PROFILE (BMP) 6:46 AM [facility] REPOSITORY TYPE CODE TESTS RESULT OUT OF [...] 7 Performed By: #### L500.2500, L501.2300 #### [facility] [address] [place], [address] PHOSPHORUS Collected: 08/16/2018 Status: F Source: [place] 6:46 AM [facility] REPOSITORY TYPE CODE TESTS RESULT OUT OF RANGE REFERENCE UNITS LAB L501.2300 2.5-4.9 mg/dL Normal PHOS 2.6 Performed By: #### L500.2500, L501.2300 #### [facility] [address] [place], [address] CORTISOL SERUM Collected: 08/16/2018 Status: F Source: [place] 6:46 AM [facility] REPOSITORY TYPE CODE TESTS RESULT OUT OF RANGE REFERENCE UNITS LAB L509.6000 3.09-22.40 ug/dL Normal CORTISOL 11.00 Result Comment: Adult (AM) 4.30 - 22.40 ug/dL Adult (PM) 3.09 - 16.66 ug/dL Performed By: #### L509.6000 #### [facility] [address] [place], [address] THYROID ANTIBODIES Collected: 08/16/2018 Status: F Source: [place] 6:46 AM [facility] REPOSITORY TYPE CODE TESTS RESULT OUT OF RANGE REFERENCE UNITS LAB L3300.6900 0-34 IU/mL Normal TPO AB 12 6676 LAB L3300.7027 0.0-0.9 IU/mL Normal TG AB < 1.0 Result Comment: Thyroglobulin Antibody measured by Cierra Sharyn Methodology Performed at: - [facility] [address] [id number] Mail Delivery Supervisor: Chavo Schafer PhD, Phone: [phone] Performed By: #### L3300.6750 #### [facility] (refer to report for specific site) refer to report for address and phone number BEDSIDE GLUCOSE Collected: 08/16/2018 Status: F Source: [place] 5:54 AM [facility] REPOSITORY TYPE CODE TESTS RESULT OUT OF REFERENCE UNITS RANGE LAB L501.080 70-110 mg/dL High BEDSIDE GLU 229 Result Comment: MANAGEMENT OF PATIENT CARE PER NURSING PROTOCOL Performed By: #### L501.080 #### [facility] Point of Care [address] [place] [address] HH, HEMOGLOBIN AND Collected: 08/16/2018 Status: F Source: [place] HEMATOCRIT 1:00 AM [facility] REPOSITORY TYPE CODE TESTS RESULT OUT OF RANGE REFERENCE UNITS LAB L100.1300 12.0-15.0 g/dl Low HGB 9.0 LAB L100.1400 37-47 % Low HCT 29.5 Performed By: #### L100.0600 #### [facility] [address] [place], [address] BEDSIDE GLUCOSE Collected: 08/15/2018 Status: F Source: [place] 11:54 PM [facility] REPOSITORY TYPE CODE TESTS RESULT OUT OF REFERENCE UNITS RANGE LAB L501.080 70-110 mg/dL High BEDSIDE GLU 168 Result Comment: MANAGEMENT OF PATIENT CARE PER NURSING PROTOCOL Performed By: #### L501.080 #### [facility] Point of Care [address] [place] [address] Observed: 08/15/2018 Status: F Source: [place] CULTURE, URINE 7:00 PM [facility] REPOSITORY Urine Culture Culture exhibits no growth. Performed By: #### M100.0650 #### [facility] [address] [place], [address] BEDSIDE GLUCOSE Collected: 08/15/2018 Status: F Source: [place] 4:50 PM [facility] REPOSITORY TYPE CODE TESTS RESULT OUT OF REFERENCE UNITS RANGE LAB L501.080 70-110 mg/dL High BEDSIDE GLU 153 Result Comment: MANAGEMENT OF PATIENT CARE PER NURSING PROTOCOL Performed By: #### L501.080 #### [facility] Point of Care [address] [place] [address] BEDSIDE GLUCOSE Collected: 08/15/2018 Status: F Source: [place] 12:48 PM [facility] REPOSITORY TYPE CODE TESTS RESULT OUT OF REFERENCE UNITS RANGE LAB L501.080 70-110 mg/dL High BEDSIDE GLU 274 Result Comment: MANAGEMENT OF PATIENT CARE PER NURSING PROTOCOL Performed By: #### L501.080 #### [facility] Point of Care [address] [place] [address] CONSULTATION Observed: 08/15/2018 Status: F Source: [place] 9:57 AM [facility] REPOSITORY [facility] Medical Records Department [address] [place] [address] Consultation 08/15/18 0954 MR#: [id number] Acct: [id number] Name: OLGA DONALDSON Rep #: [id number] : 1945 73 From: Tomasz Umaña MD PCP: Ramone Smiley MD Status: ADM IN [id number] Problem List (1) Anemia Status: Acute Qualifiers: [...] Oil/Beeswax/Safflower [Lip 90 gm TP DAILY 12/25/14 [employer]] Cod Liver Oil 1 ea [...] significant. 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 Tomasz Umaña MD Pager: [facility] [address] [place] [address], [address] [place] [address] Office: 08/15/18 0957 <Electronically signed by Tomasz Umaña MD> Date Tomasz Umaña MD Cosigner Signature (if applicable): Date CC: Tomasz Umaña MD; Shakira Skaggs; Ramone Smiley MD Signed CBC-COMPLETE BLOOD CNT Collected: 08/15/2018 Status: F Source: [place] NO DIFF 6:03 AM [facility] REPOSITORY TYPE CODE TESTS RESULT OUT OF [...] 10.1 Performed By: #### L100.0500, L100.4500 #### [facility] [address] [place], [place], [address] DIFFERENTIAL COMMENT Collected: 08/15/2018 Status: F Source: [place] 6:03 AM [facility] REPOSITORY TYPE CODE TESTS RESULT OUT OF RANGE REFERENCE UNITS LAB L100.4500 Normal SMEAR COMMENT SCAN Result Comment: ANISOCYTOSIS 1+ MICROCYTOSIS 1+ HYPOCHROMIA 2+ POLYCHROMASIA 1+ Performed By: #### L100.0500, L100.4500 #### [facility] [address] [place], [place], [address] COMPREHENSIVE METABOLIC Collected: 08/15/2018 Status: F Source: [facility] 6:03 AM [facility] REPOSITORY TYPE CODE TESTS RESULT OUT OF [...] Performed By: #### L500.4050, L501.2300, L501.5200 #### [facility] [address] [facility] [place], [place], [address] PHOSPHORUS Collected: 08/15/2018 Status: F Source: [place] 6:03 AM [facility] REPOSITORY TYPE CODE TESTS RESULT OUT OF RANGE REFERENCE UNITS LAB L501.2300 2.5-4.9 mg/dL Low PHOS 2.3 Performed By: #### L500.4050, L501.2300, L501.5200 #### [facility] [address] [place], [place], [address] MAGNESIUM Collected: 08/15/2018 Status: F Source: [place] 6:03 AM [facility] REPOSITORY TYPE CODE TESTS RESULT OUT OF RANGE REFERENCE UNITS LAB L501.5200 1.6-2.6 mg/dL Normal MG 2.3 Performed By: #### L500.4050, L501.2300, L501.5200 #### [facility] [address] [place], [address] FREE T3 Collected: 08/15/2018 Status: F Source: [place] 6:03 AM [facility] REPOSITORY TYPE CODE TESTS RESULT OUT OF RANGE REFERENCE UNITS LAB L501.95951 2.18-3.98 pg/mL Normal FREE T3 3.1 Performed By: #### L501.45861, L501.9310 #### [facility] [address] [place], [address] T4 TOTAL, THYROXIN Collected: 08/15/2018 Status: F Source: [place] 6:03 AM [facility] REPOSITORY TYPE CODE TESTS RESULT OUT OF RANGE REFERENCE UNITS LAB L501.9310 4.8-13.9 ug/dL T4 Normal THYROXIN 8.4 Performed By: #### L501.00400, L501.9310 #### [facility] [address] [place], [address] BEDSIDE GLUCOSE Collected: 08/15/2018 Status: F Source: [place] 5:33 AM [facility] REPOSITORY TYPE CODE TESTS RESULT OUT OF RANGE REFERENCE UNITS LAB L501.080 70-110 mg/dL Normal BEDSIDE GLU 109 Result Comment: MANAGEMENT OF PATIENT CARE PER NURSING PROTOCOL Performed By: #### L501.080 #### [facility] Point of Care [address] [facility] [place] [address] Observed: 08/15/2018 Status: F Source: [place] STOOL OCCULT BLOOD 5:10 AM [facility] IFOB REPOSITORY STOB iFOB Normal Reference Range = Negative. CRITICAL VALUE VERIFIED. CALLED TO HAILEY URIAS 08/15/18 0618 Janette [facility]. RESULTS READ BACK BY SAME . Occult Blood Positive ORGANISM 1: OCCULT BLOOD POSITIVE Performed By: #### M100.7900 #### [facility] [address] [place], [address] HH, HEMOGLOBIN AND Collected: 08/15/2018 Status: F Source: [place] HEMATOCRIT 1:45 AM [facility] REPOSITORY TYPE CODE TESTS RESULT OUT OF RANGE REFERENCE UNITS LAB L100.1300 12.0-15.0 g/dl Low HGB 7.0 LAB L100.1400 37-47 % Low HCT 24.6 Performed By: #### L100.0600 #### [facility] [address] [place], [address] BEDSIDE GLUCOSE Collected: 08/14/2018 Status: F Source: [place] 10:19 PM [facility] REPOSITORY TYPE CODE TESTS RESULT OUT OF REFERENCE UNITS RANGE LAB L501.080 70-110 mg/dL High BEDSIDE GLU 283 Result Comment: MANAGEMENT OF PATIENT CARE PER NURSING PROTOCOL Performed By: #### L501.080 #### [facility] Point of Care [address] [place] [address] HH, HEMOGLOBIN AND Collected: 08/14/2018 Status: F Source: [place] HEMATOCRIT 8:10 PM [facility] REPOSITORY Order Comment: RAC TYPE CODE TESTS RESULT OUT OF RANGE REFERENCE UNITS LAB L100.1300 12.0-15.0 g/dl Low HGB 7.3 LAB L100.1400 37-47 % Low HCT 26.2 Performed By: #### L100.0600, L100.9950 #### [facility] [address] [place], [address] RETIC PANEL Collected: 08/14/2018 Status: F Source: [place] 8:10 PM [facility] REPOSITORY Order Comment: RAC TYPE CODE TESTS [...] marrow. Performed By: #### L100.0600, L100.9950 #### [facility] [address] [facility], [address] THYROID STIM HORMONE Collected: 08/14/2018 Status: F Source: [place] (TSH) 8:10 PM [facility] REPOSITORY Order Comment: RAC TYPE CODE TESTS RESULT OUT OF RANGE REFERENCE UNITS LAB L501.9520 0.358-3.74 uIU/mL Low TSH 0.01 Performed By: #### L501.9520, L503.6030, L503.6550 #### [facility] [address] [place], [address] IRON+IRON BINDING Collected: 08/14/2018 Status: F Source: [place] CAPACITY 8:10 PM [facility] REPOSITORY Order Comment: RAC TYPE CODE TESTS RESULT OUT OF RANGE REFERENCE UNITS LAB L503.6075 250-450 ug/dL TIBC Normal 303 LAB L503.6150 50-170 ug/dL Low IRON 14 LAB L503.6250 15.0-55.0 % Low IRON SATURATION 4.6 Performed By: #### L501.9520, L503.6030, L503.6550 #### [facility] [address] [place], [place], [address] FERRITIN Collected: 08/14/2018 Status: F Source: [place] 8:10 PM [facility] REPOSITORY Order Comment: RAC TYPE CODE TESTS RESULT OUT OF RANGE REFERENCE UNITS LAB L503.6550 8-252 ng/mL Normal FERRITIN 22 Performed By: #### L501.9520, L503.6030, L503.6550 #### [facility] [address] [facility] [address] [place], [address] HEMOGLOBIN A1C Collected: 08/14/2018 Status: F Source: [place] 8:10 PM [facility] REPOSITORY Order Comment: RAC TYPE CODE TESTS RESULT OUT OF RANGE REFERENCE UNITS LAB L501.9985 4.2-6.3 % High HGB A1C 13.7 Performed By: #### L501.9985 #### [facility] [address] [place], [address] TYPE AND SCREEN Collected: 08/14/2018 Status: F Source: [place] 8:10 PM [facility] REPOSITORY Order Comment: 08/14/18 2203 Martín Fowler. [...] NEGATIVE Screen Performed By: #### B101.7450 #### [facility] [address] [facility] [place], [address] RC Collected: 08/14/2018 Status: F Source: [place] 8:10 PM [facility] REPOSITORY TYPE CODE TESTS RESULT OUT OF REFERENCE UNITS RANGE LAB U100.0000 [id number] TRANSFUSED PRODUCT: T AND S with Crossmatch, Red Cells COUNT: 2 Performed By: #### U100.0000 #### [facility] - refer to report for specific site HISTORY AND PHYSICAL Observed: 08/14/2018 Status: F Source: [place] EXAM 5:53 PM [facility] REPOSITORY [facility] Medical Records Department [address] [place] [address] History and Physical 08/14/18 1726 MR#: [id number] Acct: [id number] Name: OLGA DONALDSON Rep #: [id number] : 1945 73 From: Connor Skaggs DO PCP: Ramone Smiley MD Status: ADM IN Y [id number] Problem List (1) Acute renal failure Status: [...] II who presented to the ED at [facility] on 08/14/2018 complaining of nausea, vomiting and [...] Oil/Beeswax/Safflower [Lip 90 gm TP DAILY 12/25/14 [employer]] Cod Liver Oil 1 ea [...] significant. 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: Spouse/ Significant Other Smoking Status: [...] a accurate med list Code Visit Inpatient Kevan AND M: 91166 Init Hosp L3 08/14/18 1639 <Electronically signed by Connor Skaggs DO> Date Connor Skaggs DO Cosigner Signature: Date (if applicable) CC: Shakira Skaggs; Ramone Smiley MD Signed URINALYSIS, COMPLETE Collected: 08/14/2018 Status: F Source: [place] 4:20 PM [facility] REPOSITORY Order Comment: Order Date: 08/14/18 Has [...] Normal RARE Performed By: #### L400.0001 #### [facility] [address] [place], [address] CREATININE, URINE Collected: 08/14/2018 Status: F Source: [place] (RANDOM) 4:20 PM [facility] REPOSITORY TYPE CODE TESTS RESULT OUT OF RANGE REFERENCE UNITS LAB L501.1200 NO RANGE EST. mg/dL Normal UR CREAT 116.00 Performed By: #### L501.1200, L501.5500 #### [facility] [address] [place], [address] URINE SODIUM Collected: 08/14/2018 Status: F Source: [place] 4:20 PM [facility] REPOSITORY TYPE CODE TESTS RESULT OUT OF RANGE REFERENCE UNITS LAB L501.5500 Not Establ. mmol/L Normal UR NA 64 Performed By: #### L501.1200, L501.5500 #### [facility] [address] [place], [address] EMERGENCY DEPARTMENT Observed: 08/14/2018 Status: F Source: [place] SUMMARY 4:15 PM [facility] REPOSITORY [facility] Medical Records Department [address] [place] [address] Emergency Department Summary 08/14/18 1612 MR#: [id number] Acct: [id number] Name: OLGA DONALDSON Rep #: [id number] : 1945 73 From: Robert Allison DO [...] Anemia-chronic Dizziness] This note was generated with Evermind dictation software. It may contain incorrect words, [...] problems, contact your Primary Care Provider. Call [facility] ([phone]) or report to the closest Emergency Room. Call 911 if necessary. 08/14/18 3643 <Electronically signed by Robert Allison DO> Date Robert Allison DO Cosigner Signature (If Indicated): Date CC: Ramone Smiley MD ABDOMEN/PELVIS WITHOUT Observed: 08/14/2018 Status: F Source: [place] CONT 3:53 PM [facility] REPOSITORY [facility] Imaging Services [address] [place] [address] Abdomen/Pelvis without Cont MR#: [id number] Acct: [id number] Name: OLGA DONALDSON Rep #: [id number] : 1945 F 73 From: Zechariah Redmond MD PCP: Ramone Smiley MD Status: ADM IN Study: Abdomen/Pelvis without Cont Date of Exam: 08/14/18 Exam# [id number] Ordering Dr: Robert Allison DO STUDY: CT [...] CC: Ramone Smiley MD; Robert Allison DO Matrix Bath Attendant: Signed CBC W/DIFF, AUTOMATED Collected: 08/14/2018 Status: F Source: [place] 2:30 PM [facility] REPOSITORY TYPE CODE TESTS RESULT OUT OF [...] Normal 2+ Performed By: #### L100.0100 #### [facility] [address] [place], [address] BASIC METABOLIC Collected: 08/14/2018 Status: F Source: [place] PROFILE ([facility]) 2:30 PM [facility] REPOSITORY TYPE CODE TESTS RESULT OUT OF [...] GAP 10 Performed By: #### L500.2500 #### [facility] [address] [place], [address] Observed: 08/12/2018 Status: F Source: [place] CULTURE, URINE 2:45 PM [facility] REPOSITORY Urine Culture ORGANISM 1: Yeast Tutwiler Count 25,000-50,000 Performed By: #### M100.0650 #### [facility] [address] [place], [address] EMERGENCY DEPARTMENT Observed: 07/04/2018 Status: F Source: [place] SUMMARY 2:59 AM [facility] REPOSITORY [facility] Medical Records Department [address] [place] [address] Emergency Department Summary 07/04/18 0124 MR#: [id number] Acct: [id number] Name: OLGA DONALDSON Rep #: [id number] : 1945 73 From: Carlos Hunt MD [...] will be started on Cipro. I did pediatric genetic counselor her that she needs to follow-up with Dr. Carrillo as this is recurrent retention. I am going to treat her constipation with magnesium citrate. The patient is comfortable with this plan of care. She will be discharged home. Treatment Plan: [] Disposition: [] Impression: Acute urinary retention 2. Acute cystitis This note was generated with Evermind dictation software. It may contain incorrect words, [...] your Primary Care Provider. Call [facility] ([phone]) or report to the closest Emergency Room. Call 911 if necessary. 07/04/18 0259 <Electronically signed by Carlos Hunt MD> Date Carlos Hunt MD Cosigner Signature (If Indicated): Date CC: Ramone Smiley MD URINALYSIS, COMPLETE Collected: 07/04/2018 Status: F Source: [place] 1:35 AM [facility] REPOSITORY Order Comment: Order Date: 07/04/18 Has [...] Normal YEAST-URINE Performed By: #### L400.0001 #### [facility] [address] [place], [address] Observed: 07/04/2018 Status: F Source: [place] CULTURE, URINE 1:35 AM [facility] REPOSITORY Urine Culture ORGANISM 1: Nithya albicans Tutwiler Count >100,000 Performed By: #### M100.0650 #### [facility] [address] [place], [address] EMERGENCY DEPARTMENT Observed: 06/25/2018 Status: F Source: [place] SUMMARY 6:54 PM [facility] REPOSITORY [facility] Medical Records Department [address] [address] Emergency Department Summary 06/25/18 1848 MR#: [id number] Acct: [id number] Name: OLGA DONALDSON Rep #: [id number] : 1945 73 From: Kwaku Marcial MD [...] II diabetic This note was generated with Evermind dictation software. It may contain incorrect words, [...] your Primary Care Provider. Call [facility] ([phone]) or report to the closest Emergency Room. Call 911 if necessary. 06/25/18 2374 <Electronically signed by Kwaku Marcial MD> Date Kwaku Marcial MD Cosigner Signature (If Indicated): Date CC: Ramone Smiley MD; Presley Edmondson MD BASIC METABOLIC Collected: 06/25/2018 Status: F Source: [place] PROFILE ([facility]) 4:44 PM [facility] REPOSITORY TYPE CODE TESTS RESULT OUT OF [...] GAP 8 Performed By: #### L500.2500 #### [facility] [address] [place], [address] URINALYSIS, COMPLETE Collected: 06/25/2018 Status: F Source: [place] 4:25 PM [facility] REPOSITORY Order Comment: Order Date: 06/25/18 How [...] URINE SEEN Performed By: #### L400.0001 #### [facility] [address] [place], [address] ABDOMEN/PELVIS WITH Observed: 06/25/2018 Status: F Source: JAQUELIN CONTRAST 1:19 PM [facility] REPOSITORY [facility] Imaging Services [address] [place] [address] Abdomen/Pelvis WITH Contrast MR#: [id number] Acct: [id number] Name: OLGA DONALDSON Rep #: [id number] : 1945 F 73 From: Robert Randall MD PCP: Ramone Smiley MD Status: REG CLI Study: Abdomen/Pelvis WITH Contrast Date of Exam: 06/25/18 Exam# [id number] Ordering Dr: Ramone Smiley MD STUDY: CT [...] Robert Randall MD at 14:37 EDT Tel [phone], Service support , CC: Ramone Smiley MD Matrix Bath Attendant: Signed PTHIN Collected: 06/15/2018 Status: F Source: [place] 12:38 PM [facility] REPOSITORY Order Comment: PLEASE ADD PTHIN TO BLOOD DONE 06/14/18 PER TYPE CODE TESTS RESULT OUT OF RANGE REFERENCE UNITS LAB L509.1000 18.4-80.1 pg/mL High PTHIN 137.3 Performed By: #### L509.1000 #### [facility] [address] [place], [address] ERYTHROCYTE SED RATE Collected: 06/14/2018 Status: F Source: JAQU[place] 12:38 PM [facility] REPOSITORY TYPE CODE TESTS RESULT OUT OF RANGE REFERENCE UNITS LAB L102.0000 0-30 mm/hr High SED RATE 124 Performed By: #### L101.9900, L100.0100, L500.4050, L501.9520 #### [facility] [address] [place], [address] CBC W/DIFF, AUTOMATED Collected: 06/14/2018 Status: F Source: [place] 12:38 PM [facility] REPOSITORY TYPE CODE TESTS RESULT OUT OF [...] By: #### L101.9900, L100.0100, L500.4050, L501.9520 #### [facility] [address] [place], [place], [address] COMPREHENSIVE METABOLIC Collected: 06/14/2018 Status: F Source: [facility] 12:38 PM [facility] REPOSITORY TYPE CODE TESTS RESULT OUT OF [...] By: #### L101.9900, L100.0100, L500.4050, L501.9520 #### [facility] [address] [place], [place], [address] THYROID STIM HORMONE Collected: 06/14/2018 Status: F Source: [place] ([facility]) 12:38 PM [facility] REPOSITORY TYPE CODE TESTS RESULT OUT OF RANGE REFERENCE UNITS LAB L501.9520 0.358-3.74 uIU/mL Normal TSH 0.46 Performed By: #### L101.9900, L100.0100, L500.4050, L501.9520 #### [facility] [address] [place], [place], [id number] CRP Collected: 06/14/2018 Status: F Source: [place] 12:38 PM [facility] REPOSITORY TYPE CODE TESTS RESULT OUT OF RANGE REFERENCE UNITS LAB L501.6710 0.0-3.0 mg/L High 20.80 C-REACTIVE PROT Result Comment: C-Reactive Protein (CRP) provides useful information for the diagnosis, therapy and monitoring of inflammatory processes and associated diseases. For the evaluation of Relative Risk for Cardiovascular Disease, a High Sensitivity CRP (HSCRP) should be ordered. Performed By: #### L501.6710 #### [facility] [address] [place], [address] ABD INC DECUB Observed: 05/07/2018 Status: F Source: JAQUEL[place] AND/OR ERECT 12:56 PM [facility] REPOSITORY [facility] Imaging Services [address] [place] [address] Abd Inc Decub and/or Erect MR#: [id number] Acct: [id number] Name: OLGA DONALDSON Rep #: [id number] : 1945 F 73 From: Raji Gonzalez MD PCP: Ramone Smiley MD Status: REG CLI Study: Abd Inc Decub and/or Erect Date of Exam: 05/07/18 Exam# [id number] Ordering Dr: Ramone Smiley MD STUDY: X-RAY [...] Service support , CC: Ramone Smiley MD Matrix Bath Attendant: Signed COMPREHENSIVE METABOLIC Collected: 05/07/2018 Status: F Source: JAQUELIN GRAVES 12:26 PM [facility] REPOSITORY TYPE CODE TESTS RESULT OUT OF [...] Performed By: #### L500.4050, L501.6710, L501.9520 #### [facility] [address] [facility] [place], [address] CRP Collected: 05/07/2018 Status: F Source: [place] 12:26 PM [facility] REPOSITORY TYPE CODE TESTS RESULT OUT OF RANGE REFERENCE UNITS LAB L501.6710 0.0-3.0 mg/L High 15.80 C-REACTIVE PROT Result Comment: C-Reactive Protein (CRP) provides useful information for the diagnosis, therapy and monitoring of inflammatory processes and associated diseases. For the evaluation of Relative Risk for Cardiovascular Disease, a High Sensitivity CRP (HSCRP) should be ordered. Performed By: #### L500.4050, L501.6710, L501.9520 #### [facility] [address] [facility] [place], [address] THYROID STIM HORMONE Collected: 05/07/2018 Status: F Source: [place] (TSH) 12:26 PM [facility] REPOSITORY TYPE CODE TESTS RESULT OUT OF RANGE REFERENCE UNITS LAB L501.9520 0.358-3.74 uIU/mL Normal TSH 0.64 Performed By: #### L500.4050, L501.6710, L501.9520 #### [facility] [address] [facility] [place], [address] CBC W/DIFF, AUTOMATED Collected: 05/07/2018 Status: F Source: [place] 12:26 PM [facility] REPOSITORY TYPE CODE TESTS RESULT OUT OF [...] RARE Performed By: #### L100.0100, L101.9900 #### [facility] [address] [place], [address] ERYTHROCYTE SED RATE Collected: 05/07/2018 Status: F Source: [place] 12:26 PM [facility] REPOSITORY TYPE CODE TESTS RESULT OUT OF RANGE REFERENCE UNITS LAB L102.0000 0-30 mm/hr High SED RATE 84 Performed By: #### L100.0100, L101.9900 #### [facility] [address] [place], [address] LOWER EXT ARTERIAL Observed: 03/10/2018 Status: F Source: [facility] 11:30 AM [facility] REPOSITORY [facility] Cardiovascular Services [address] [place] [address] 03/10/18 1127 MR#: [id number] Acct: [id number] Name: OLGA DONALDSON Rep #: [id number] : 1945 73 From: Wellington Mullen MD [...] MD Date Dictated: 03/10/181126 Date Transcribed: 03/10/181126 Matrix Bath Attendant: RENU Signed Observed: 01/18/2018 Status: F Source: [employer] CULTURE FUNGUS 3:30 PM SYSTEM REPOSITORY 1 Organism Nithya albicans Many Performed By: #### C/FUN, S/FUN #### [facility] [address] [place] [phone] Observed: 01/18/2018 Status: F Source: [employer] STAIN FUNGUS 3:30 PM SYSTEM REPOSITORY STAIN FUNGUS --> Status: F 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 Direct exam by Calcofluor stain. Direct exam by Calcofluor stain. Performed By: #### C/FUN, S/FUN #### [facility] [address] [place] [address] FINGER(S) MIN 2 VIEWS Observed: 01/11/2018 Status: F Source: [place] 6:40 PM [facility] REPOSITORY [facility] Imaging Services [address] [place] [address] Finger(s) Min 2 Views MR#: [id number] Acct: [id number] Name: OLGA DONALDSON Rep #: [id number] : 1945 F 73 From: Glenna Stein MD PCP: Ramone Smiley MD Status: REG CLI Study: Finger(s) Min 2 Views Date of Exam: 01/11/18 Exam# [id number] Ordering Dr: Ramone Smiley MD STUDY: X-RAY [...] Service support , CC: Ramone Smiley MD Matrix Bath Attendant: Signed CBC W/DIFF, AUTOMATED Collected: 01/11/2018 Status: F Source: [place] 6:29 PM [facility] REPOSITORY Order Comment: Order Date: 01/11/18 Order Info: 0184-1 - CBCD Order Info: 40315-2 - SED TYPE CODE TESTS RESULT OUT [...] By: #### L100.0100, L500.4050, L501.1400, L101.9900 #### [facility] [address] [place], [address] COMPREHENSIVE METABOLIC Collected: 01/11/2018 Status: F Source: JAQUELIN GRAVES 6:29 PM [facility] REPOSITORY Order Comment: Order Date: 01/11/18 Order [...] By: #### L100.0100, L500.4050, L501.1400, L101.9900 #### [facility] [address] [place], [address] URIC ACID Collected: 01/11/2018 Status: F Source: [place] 6:29 PM [facility] REPOSITORY Order Comment: Order Date: 01/11/18 Order Info: 0786-1 - CMP Order Info: 3084-1 - URIC TYPE CODE TESTS RESULT OUT OF RANGE REFERENCE UNITS LAB L501.1400 2.6-6.0 mg/dL Normal URIC 5.1 Result Comment: The drugs N-Acetylcysteine and Metamizole may falsely depress this assay. Performed By: #### L100.0100, L500.4050, L501.1400, L101.9900 #### [facility] [address] [place], [address] ERYTHROCYTE SED RATE Collected: 01/11/2018 Status: F Source: [place] 6:29 PM [facility] REPOSITORY Order Comment: Order Date: 01/11/18 Order Info: 0184-1 - CBCD Order Info: 51053-8 - SED TYPE CODE TESTS RESULT OUT OF RANGE REFERENCE UNITS LAB L102.0000 0-30 mm/hr High SED RATE > 130 Performed By: #### L100.0100, L500.4050, L501.1400, L101.9900 #### [facility] [address] [place], [address] Observed: 10/21/2017 Status: F Source: [place] CULTURE, WOUND 11:45 AM [facility] REPOSITORY Comments: R 4TH PARONYCHIA Gram Stain [...] 0.5 S (NF) indicates non-formulary drug at [facility]. Approval by Infectious Disease Specialist required [...] <=20 S (NF) indicates non-formulary drug at [facility]. Approval by Infectious Disease Specialist required before non-formulary drugs may be ordered and/or dispensed. Performed By: #### M100.1400 #### [facility] [address] [place], [place] [address], [address] ALLERGIES ALLERGIES DATE TYPE / CODE NAME / CODE REACTION SEVERITY SOURCE Drug cephalexin Rash Unknown [place] Allergy/630737818( monohydrate/F000 [facility]) 450111(RXNORM) Hospital Repository Drug clopidogrel Other Unknown [place] Allergy/833869413( bisulfate/L22074 [facility]) 7364(RXNORM) Hospital Repository Drug amoxicillin/F006 YEAST Unknown [place] Allergy/975680725( 272135(RXNORM) INFECTION [facility]) Hospital Repository Miscellaneous cloth tap Other Unknown [place] 9 Allergy/983835718( [facility]OM[facility]) Hospital Repository ENCOUNTERS ENCOUNTERS ADMIT/DISCHARGE ACCOUNT NUMBER ADMITTING ENCOUNTER LOCATION SOURCE CLASS 09/19/2018/09/19/19 [id number] Emergency [facility] ding:ED Repository 08/14/2018/08/20/20 [id number] Sementi, Inpatient [place] 18 [place]ira Encounter [facility] ding:FD3Otmy Repository : VU507Irq: 1 08/14/2018 [id number] Sementi, Ambulatory BMSBuilding: [place] Shakira BMS.[facility] Repository 08/14/2018 [id number] Sementi, Ambulatory BMSBuilding: [place] BMS.[facility] Repository 08/14/2018 [id number] [place]ementi, Ambulatory BMSBuilding: [place] Shakira BMS.[facility] Repository 08/14/2018 [id number] Sementi, Ambulatory BMSBuilding: [place] BMS.[facility] Repository 08/14/2018 [id number] Sementi, Ambulatory BMSBuilding: [place]ira BMS.[facility] Repository 08/14/2018 [id number] Sementi, Ambulatory BMSBuilding: [place]ira BMS.[facility] Repository 08/14/2018 [id number] Sementi, Ambulatory BMSBuilding: [place]ira BMS.[facility] Repository 08/14/2018 [id number] Sementi, Ambulatory BMSBuilding: [place]ira BMS.[facility] Repository 08/14/2018/08/20/20 [id number] Ambulatory BMSBuilding: [place] 18 [facility] Repository 08/14/2018 [id number] Sementi, Ambulatory BMSBuilding: [place] Shakira BMS.[facility] Repository 08/14/2018 [id number] Sementi, Ambulatory BMSBuilding: [place]ira BMS.[facility] Repository 08/14/2018 [id number] Sementi, Ambulatory BMSBuilding: [place] BMS.[facility] Repository 08/14/2018 [id number] Sementi, Ambulatory BMSBuilding: [place] Shakira BMS.[facility] Repository 08/12/2018 [id number] Ambulatory [facility] ding:LABSPEC Repository 07/04/2018/07/04/20 [id number] Emergency [address] ding:ED Repository 06/25/2018/06/25/20 [id number] Emergency [address] ding:ED Repository 06/25/2018 [id number] Ambulatory [facility] ding:CT Repository 06/14/2018 [id number] Ambulatory [facility] ding:MTLAB Repository 05/07/2018 [id number] Ambulatory [facility] ding:MTRAD Repository 05/07/2018 [id number] Ambulatory [facility] ding:MTRAD Repository 02/24/2018 [id number] Ambulatory [facility] ding:CVS Repository 01/27/2018 [id number] Ambulatory BMSBuilding: [place] BMS.[facility] Repository 01/18/2018 [id number] Ambulatory [facility] Repository 01/11/2018 [id number] Ambulatory [facility] ding:LAB Repository 10/22/2017 [id number] Ambulatory [facility] ding:LABSPEC Repository PAYERS PAYERS ENCOUNTER GUARANTOR PAYER SUBSCRIBER SOURCE 09/19/2018 OLGA Primary OLGA [place] [id number] NOLD Insurance:HUMANA [place] PPOP[place]icy [id number] [address]Dai: (330) Number: Repository [phone] HP [id number] Date:4100-53-13SY [address] [place] [address]ZI: 09/19/2018 Secondary NOT GIVENUNK [place] Insurance:SELF PAY [facility] Number: Effective Repository Date:2018-09-19 08/14/2018 OLGA Primary OLGA [place] [id number] NOLD Insurance:HUMANA G[place]OB: [place] PPOPolicy [id number] [address]Nst: (330) Number: Repository [phone] () [id number] Date:9989-89-21UM [address]46[address]WP: 08/14/2018 Secondary NOT GIVENUNK [place] Insurance:SELF PAY [facility] Number: Effective Repository Date:2018-08-14 08/14/2018 OLGA Primary OLGA [place] [id number] N[place] Insurance:HUMANA [place]OB: [place] PPOPolicy [id number] [address]Lbu: (330) Number: Repository [phone] () [id number] Date:6869-59-36OC [address]46[address]WP: 08/14/2018 Secondary NOT GIVENUNK [place] Insurance:SELF PAY [facility] Number: Effective Repository Date:2018-08-14 08/14/2018 OLGA Primary OLGA [place] [id number] N[place] Insurance:HUMANA [place]OB: [place] PPOPolicy [id number] [place] [address]Pim: (330) Number: Repository [phone] () [id number] Date:5058-99-76QA[address] [address]RM: 08/14/2018 Secondary NOT GIVENUNK [place] Insurance:SELF PAY [facility] Number: Effective Repository Date:2018-08-14 08/14/2018 OLGA Primary OLGA [place] [id number] N[place] Insurance:HUMANA G[place]OB: [place] PPOPolicy [id number] [place] [address]Rdt: (330) Number: Repository [phone] () [id number] Date:3189-26-77EL [address] [address]UO: 08/14/2018 Secondary NOT GIVENUNK [place] Insurance:SELF PAY [facility] Number: Effective Repository Date:2018-08-14 08/14/2018 OLGA Primary OLGA [place] [id number] NOLD Insurance:HUMANA [place]OB: [place] PPOPolicy [id number] [address]Vwp: (330) Number: Repository [phone] () [id number] Date:6506-77-59ZD [address] [address]EK: 08/14/2018 Secondary NOT GIVENUNK [place] Insurance:SELF PAY [facility] Number: Effective Repository Date:2018-08-14 08/14/2018 OLGA Primary OLGA [place] [id number] N[place] Insurance:HUMANA G[place]OB: [place] PPOPolicy [id number] [address]Qpk: (330) Number: Repository [phone] () [id number] Date:7153-58-17BA [address] [address]IG: 08/14/2018 Secondary NOT GIVENUNK [place] Insurance:SELF PAY [facility] Number: Effective Repository Date:2018-08-14 08/14/2018 OLGA Primary OLGA [place] [id number] N[place] Insurance:HUMANA G[place]OB: [place] PPOPolicy [id number] [address]Kez: (330) Number: Repository [phone] () [id number] Date:9214-17-47HW [address] [address]LS: 08/14/2018 Secondary NOT GIVENUNK [place] Insurance:SELF PAY [facility] Number: Effective Repository Date:2018-08-14 08/14/2018 OLGA Primary OLGA [place] [id number] N[place] Insurance:HUMANA GAD[place]ENDOB: [place] PPOPolicy [id number] [address]Wwr: (330) Number: Repository [phone] () [id number] Date:4640-49-82QX [address] [address]LU: 08/14/2018 Secondary NOT GIVENUNK [place] Insurance:SELF PAY [facility] Number: Effective Repository Date:2018-08-14 08/14/2018 OLGA Primary OLGA [place] [id number] N[place] Insurance:HUMANA G[place]OB: [place] PPOPolicy [id number] [address]Tel: (330) Number: Repository [phone] () [id number] Date:5827-19-15TW [place] [address]WP: 08/14/2018 Secondary NOT GIVENUNK [place] Insurance:SELF PAY [facility] Number: Effective Repository Date:2018-08-14 08/14/2018 OLGA Primary OLGA [place] [id number] N[place] Insurance:HUMANA GAD[place]OB: [place] PP[place]olicy [id number] [place] [id number]: (330) Number: Repository [phone] () [id number] Date:2704-76-81SX [place] [address]WP: 08/14/2018 Secondary NOT GIVENUNK [place] Insurance:SELF PAY [facility] Number: Effective Repository Date:2018-08-14 08/14/2018 OLGA Primary OLGA [place] [id number] N[place] Insurance:HUMANA GAD[place]OB: [place] PPOPolicy [id number] [address]Fhm: (330) Number: Repository [phone] () [id number] Date:2402-46-80[place] [address]WP: 08/14/2018 Secondary NOT GIVENUNK [place] Insurance:SELF PAY [facility] Number: Effective Repository Date:2018-08-14 08/14/2018 OLGA Primary OLGA [place] [id number] N[place] Insurance:HUMANA GAD[place]ENDOB: [place] PP[place]icy [id number] [address]Bwa: (330) Number: Repository [phone] () [id number] Date:0527-32-63EM [address] [address]UJ: 08/14/2018 Secondary NOT GIVENUNK [place] Insurance:SELF PAY [facility] Number: Effective Repository Date:2018-08-14 08/14/2018 OLGA Primary OLGA [place] [id number] N[place] Insurance:HUMANA GAD[place]ENDOB: [place] PPOPol[place] [id number] [address]Exm: (330) Number: Repository [phone] () [id number] Date:7728-23-31LJ[address] [address]BS: 08/14/2018 Secondary NOT GIVENUNK [place] Insurance:SELF PAY [facility] Number: Effective Repository Date:2018-08-14 08/14/2018 OLGA Primary OLGA [place] [id number] [place] Insurance:HUMANA GAD[place]ENDOB: [place] PP[place]ol[place] [id number] [address]Ejp: (330) Number: Repository [phone] () [id number] Date:1506-92-37CX [address] [address]UN: 08/14/2018 Secondary NOT GIVENUNK [place] Insurance:SELF PAY [facility] Number: Effective Repository Date:2018-08-14 08/12/2018 OLGA Primary OLGA [place] [id number] N[place] Insurance:HUMANA GADSDENDOB: [place] PPOP[place] [id number] [address]Bie: (330) Number: Repository [phone] () [id number] Date:2549-65-19BE [place] [address]WP: 08/12/2018 Secondary NOT GIVENUNK [place] Insurance:SELF PAY [facility] Number: Effective Repository Date:2018-08-12 07/04/2018 OLGA Primary OGLA [place] [id number] N[place] Insurance:HUMANA GAD[place]ENDOB: [place] [id number] [address]Hmc: (330) Number: Repository [phone] () [id number] Date:2535-33-01MS [address]4601WP: 07/04/2018 Secondary NOT GIVENUNK [place] Insurance:SELF PAY [facility] Number: Effective Repository Date:2018-07-04 06/25/2018 OLGA Primary OLGA [place] [id number] N[place] Insurance:HUMANA GADSDENDOB: [place] PP[place] [id number] [place] [address]Iob: (330) Number: Repository [phone] () [id number] Date:8171-18-16YQ [address] [address]DS: 06/25/2018 Secondary NOT GIVENUNK [place] Insurance:SELF PAY [facility] Number: Effective Repository Date:2018-06-25 06/25/2018 OLGA Primary OLGA [place] [id number] N[place] Insurance:HUMANA GADSDENDOB: [facility] [place] PPOPolicy [id number] [place] [address]Jei: (330) Number: Repository [phone] () [id number] Date:7477-44-96WO [address] [address]TF: 06/25/2018 Secondary NOT GIVENUNK [place] Insurance:SELF PAY [facility] Number: Effective Repository Date:2018-06-17 06/14/2018 Olga Primary Olga [place] [id number] [place] Insurance:HUMANA [place]adsdenDOB: [place] PPOPolicy [id number] [address]Nlh: (330) Number: Repository [phone] () [id number] Date:8184-61-33ZB[address]4601WP: 06/14/2018 Secondary NOT GIVENUNK [place] Insurance:SELF PAY [facility] Number: Effective Repository Date:2018-06-14 05/07/2018 Olga Primary Olga [place] [id number] [place] Insurance:HUMANA Gads[place]DOB: [place] PPOPolicy [id number] [place] [id number]: (330) Number: Repository [phone] () [id number] Date:0073-19-68[place] [address]WP: 05/07/2018 Secondary NOT GIVENUNK [place] Insurance:SELF PAY [facility] Number: Effective Repository Date:2018-05-07 05/07/2018 Olga Primary Olga [place] [id number] [place] Insurance:HUMANA GadsdenDOB: [place] PPOPolicy [id number] [place] [id number]: (330) Number: Repository [phone] () [id number] Date:8681-81-69QF [address]46[address]WP: 05/07/2018 Secondary NOT GIVENUNK [place] Insurance:SELF PAY [facility] Number: Effective Repository Date:2018-05-07 02/24/2018 Olga Primary Olga [place] [id number] [place] Insurance:HUMANA G[place]denDOB: [place] PP[place]ol[place] [id number] [address]Vfm: (330) Number: Repository [phone] () [id number] Date:0535-42-31[place] [address]WP: 02/24/2018 Secondary NOT GIVENUNK [place] Insurance:SELF PAY [facility] Number: Effective Repository Date:2018-01-26 01/27/2018 Olga Primary Olga [place] [id number] [place] Insurance:HUMANA GadsdenDOB: [place] PPOP[place] [id number] [address]Pnx: (330) Number: Repository [phone] () [id number] Date:0282-76-96WX [address] [address]HH: 01/27/2018 Secondary NOT GIVENUNK [place] Insurance:SELF PAY [facility] Number: Effective Repository Date:2018-01-12 01/18/2018 olga [facility] gadsdenD[facility]: Insurance:Humana[employer]olic gadsdenDOB: System y Number: Effective [id number] Repository [facility], Date: [id number]: () 01/11/2018 Olga Primary Olga [place] [id number] [place] Insurance:HUMANA [place] PPOPolicy [id number] [id number]: [phone]) Number: Repository [phone] () [id number] Date:[id number] [address]WP: 01/11/2018 Secondary NOT GIVENUNK Jaquelin Insurance:SELF PAY [facility] Number: Effective Repository Date:2018-01-11 10/22/2017 Olga Primary Olga [place] [id number] [place] Insurance:HUMANA [place]: [place] PPOPolicy [id number] [id number]: [phone] Number: Repository [phone] () [id number] Date:[id number] [id number]: 10/22/2017 Secondary NOT GIVENUNK [place] Insurance:SELF [facility] Effective Repository Date:2017-10-22
== END 2018-08-20 15:09 | disposition home health service (06) | DRG 683 ==
LOC: ED 15:31 → PCU 17:03 → MS3 18:48 → PCU 08-16 10:25
PROVIDERS: Surgery; Admitting Provider Internal Medicine; Emergency Provider Emergency Medicine; Family Provider Family Medicine; PCP Family Medicine; Referring Provider Internal Medicine; Visit Provider Internal Medicine
PROC: 0DJD8ZZ Inspection of Lower Intestinal Tract, Via Natural or Artificial Opening Endoscopic (ICD-10-PCS; CPT 45378; principal; 2018-08-19 09:45)
DX: N17.9 Acute kidney failure, unspecified (principal); N39.0 Urinary tract infection, site not specified; E87.1 Hypo-osmolality and hyponatremia; E86.0 Dehydration; I12.9 Hypertensive chronic kidney disease with stage 1 through stage 4 chronic kidney disease, or unspecified chronic kidney disease; E11.22 Type 2 diabetes mellitus with diabetic chronic kidney disease; I35.0 Nonrheumatic aortic (valve) stenosis; D50.9 Iron deficiency anemia, unspecified; J44.9 Chronic obstructive pulmonary disease, unspecified; E11.65 Type 2 diabetes mellitus with hyperglycemia; D12.0 Benign neoplasm of cecum; N18.3 Chronic kidney disease, stage 3 (moderate); E83.52 Hypercalcemia; E83.39 Other disorders of phosphorus metabolism; K29.70 Gastritis, unspecified, without bleeding; R33.9 Retention of urine, unspecified; R19.5 Other fecal abnormalities; Z79.4 Long term (current) use of insulin; Z86.718 Personal history of other venous thrombosis and embolism; Z87.891 Personal history of nicotine dependence; Z79.899 Other long term (current) drug therapy; Z85.3 Personal history of malignant neoplasm of breast
CPT/HCPCS: 36415; 51702; 74018; 74176; 80048; 80053; 81001; 82274; 82533; 82570; 82728; 82962; 83036; 83540; 83550; 83735; 84100; 84300; 84436; 84443; 84481; 85014; 85018; 85025; 85027; 85045; 86376; 86644; 86800; 86850; 86900; 86920; 86922; 87086; 87088; 88305; 93306; 94640; 97110; 97161; 97166; 97530; 99284; J1756; J7030; J7040; J7050; P9016; A4216; J0744; J2405

== ENCOUNTER 2018-09-19 09:46 | Emergency (ER) | payer MEDICARE, SELFPAY ==
[2018-09-19 09:46] VITALS: BMI 26.8
[2018-09-19 09:48] VITALS: BP 167/104; PULSE 89; RESP 16; TEMP 36.6; O2SAT 97; BMI 29.4
[2018-09-19 09:52] VITALS: BP 167/104; PULSE 89; RESP 16; TEMP 36.6; O2SAT 97
--- NOTE | 2018-09-19 09:57 | ED.VISSUMM ---
- ER Visit Summary Date of Service: 09/19/18 Chief Complaint: Painful Serna catheter site History of Present Illness: The patient is a 73 F with a Serna catheter in place for urinary retention since July 2018. She reports 24 hours of dysuria and pain at the Serna catheter site. She also noticed sediment material in the Serna catheter and is concerned that she could have an infection that it could be obstructed. She denies fever, weakness, or confusion. No nausea or vomiting. Physical Examination: Vital signs are within normal limits. She is not in distress. Abdomen is soft and nontender. No suprapubic tenderness. No erythema or evidence of infection in the perineal/vaginal area on a female chaperoned examination. Test Results: Urinalysis revealed only leuk esterase. No other markers of infection. It was sent for a culture. Emergency Department Course and Treatment: The Serna catheter appeared to be obstructed. It was switched out for a new one. Then flowed easily and nearly 1.5 L of urine drained. It is clear and colorless. It does not appear obviously infected on urinalysis but I did send it for a culture. Treatment Plan: She feels well on reexamination. Her symptoms have resolved. Her Serna catheter appeared to be obstructed with sediment. I sent a urine culture but I do not feel she needs antimicrobials. She is comfortable going home. She will follow-up with her urologist and return here if worse. Disposition: Home stable Impression: Initial encounter Serna catheter obstruction This note was generated with [employer] dictation software. It may contain incorrect words, spelling, and punctuation that were not noted in review of the chart prior to signing ED Disposition - Plan for ED Patient: Chief Complaint: Complaint Instructions: ED Catheter Care Serna Referrals: Presley Edmondson MD [STAFF PHYSICIAN] -
--- NOTE | 2018-09-19 10:00 | ED.RN ---
URINE IN PT'S [place] BAG THAT SHE ARRIVED WITH WAS PURULENT. THE URINE FROM THE NEW [place] IS CLEAR YELLOW AND DRAINING.
[2018-09-19 10:07] LABS: Bacteria 0 SEEN /hpf (None Seen); Mucous, Urine 0 SEEN /hpf (<or=2+); Red Blood Cells-Urine 0 SEEN /hpf (0-5); Squamous Epithelial Cells - UA 0 SEEN /hpf (5-10)
[2018-09-19 10:18] LABS: Color, Urine Yellow (Yellow); Glucose, Dipstick 100 mg/dl (Normal); Ketone-Dipstick Negative (Negative); Leukocyte Esterase-Dipstick 100 /ul (Negative); Nitrite-Dipstick Negative (Negative); Occult Blood-Urine 250 /ul (Negative); Protein-Dipstick 30 mg/dl (Negative); Urine Bilirubin Dipstick Negative (Negative); Urine Clarity Clear (Clear); Urine Urobilinogen Normal (Normal); Urine pH 6.5 (5.0 - 8.0)
[2018-09-19 10:52] LABS: White Blood Cells 0-5 SEEN /hpf (0-5); Yeast-Urine 2+ /hpf (None Seen)
[2018-09-19 11:07] VITALS: BP 166/86; PULSE 82; O2SAT 95
--- OUTSIDE RECORDS SUMMARY | 2018-11-22 11:07 | XMS RPT_ITS ---
:1945 Author Organization OHIP Support Name Relationship Address Phone EMMA DONALDSON Unavailable [address] + [place] [address] JANEEN, MERADETH Unavailable [address] + [place] [address] R Unavailable Unavailable Unavailable ANH DONALDSONON Unavailable [address] + [place] [address] JANEEN, MERADETH Unavailable [address] + [place] [address] R Unavailable Unavailable Unavailable ANH DONALDSONON Unavailable [address] + [place] [address] JANEEN, MERADETH Unavailable [address] + [place] [address] R Unavailable Unavailable Unavailable ANIKAANHON Unavailable [address] + [place] [address] JANEEN, MERADETH Unavailable [address] + [place] [address] R Unavailable Unavailable Unavailable ANIKAANHON Unavailable [address] + [place] [address] JANEEN, MERADETH Unavailable [address] + [place] [address] R Unavailable Unavailable Unavailable ANIKA EMMA Unavailable [address] + [place] [address] JANEEN, MERADETH Unavailable [address] + [place] [address] R Unavailable Unavailable Unavailable ANIKA, EMMA Unavailable [address] + [place] [address] JANEEN, MERADETH Unavailable [address] + [place] [address] R Unavailable Unavailable Unavailable ANIKA EMMA Unavailable [address] + [place] [address] JANEEN, MERADETH Unavailable [address] + [place] [address] R Unavailable Unavailable Unavailable ANIKA EMMA Unavailable [address] + [place] [address] JANEEN, MERADETH Unavailable [address] + [place] [address] R Unavailable Unavailable Unavailable ANIKA EMMA Unavailable [address] + [place] [address] JANEEN, MERADETH Unavailable [address] + [place] [address] R Unavailable Unavailable Unavailable ANIKA, EMMA Unavailable [address] + [place] [address] JANEEN, MERADETH Unavailable [address] + [place] [address] R Unavailable Unavailable Unavailable ANIKA EMMA Unavailable [address] + [place] [address] JANEEN, MERADETH Unavailable [address] + [place] [address] R Unavailable Unavailable Unavailable ANIKA EMMA Unavailable [address] + [place] [address] JANEEN, MERADETH Unavailable [address] + [place] [address] R Unavailable Unavailable Unavailable ANIKA EMMA Unavailable [address] + [place] [address] JANEEN, MERADETH Unavailable [address] + [place] [address] R Unavailable Unavailable Unavailable ANIKA EMMA Unavailable [address] + [place] [address] JANEEN, MERADETH Unavailable [address] + [place] [address] R Unavailable Unavailable Unavailable ANIKA EMMA Unavailable [address] + [place] [address] JANEEN, MERADETH Unavailable [address] + [place] [address] R Unavailable Unavailable Unavailable ANIKA, EMMA Unavailable [address] + [place] [address] JANEEN, MERADETH Unavailable [address] + [place] [address] R Unavailable Unavailable Unavailable ANIKA, EMMA Unavailable [address] + [place] [address] JANEEN, MERADETH Unavailable [address] + [place] [address] R Unavailable Unavailable Unavailable ANIKA, EMMA Unavailable [address] + [place] [address] JANEEN, MERADETH Unavailable [address] + [place] [address] R Unavailable Unavailable Unavailable ANIKA, EMMA Unavailable [address] + [place] [address] JANEEN, MERADETH Unavailable [address] + [place] [address] R Unavailable Unavailable Unavailable ANIKA, EMMA Unavailable [address] + [place] [address] JANEEN, MERADETH Unavailable [address] + [place] [address] R Unavailable Unavailable Unavailable ANIKA, EMMA Unavailable [address] + [place] [address] JANEEN, MERADETH Unavailable [address] + [place] [address] R Unavailable Unavailable Unavailable ANIKA, EMMA Unavailable [address] + [place] [address] JANEEN, MERADETH Unavailable [address] + [place] [address] R Unavailable Unavailable Unavailable ANIKA, EMMA Unavailable [address] + [place] [address] JANEEN, MERADETH Unavailable [address] + [place] [address] R Unavailable Unavailable Unavailable ANIKA, EMMA Unavailable [address] + [place] [address] JANEEN, MERADETH Unavailable [address] [phone] [place] [address] R Unavailable Unavailable Unavailable EMMA DONALDSON Unavailable [address] + [place] [address] MARIE VERNONADETH Unavailable [address] [facility] + [place] [address] R Unavailable Unavailable Unavailable Care Team Providers Name Role Phone LEE ALAMO Attending Unavailable PROVIDER, UNKNOWN Referring Unavailable Olga Donis Attending Unavailable [facility] Unavailable JewelsOlga العلي Referring Unavailable [facility] Unavailable Sementi, Shakira Admitting Unavailable Sementi, Shakira Attending Unavailable Sementi, Shakira Referring Unavailable CalabrettaAnnieTomasz Consulting Unavailable Sementi, Shakira Admitting Unavailable Sementi, Shakira Attending Unavailable Sementi, Shakira Referring Unavailable [facility] Primary Care Unavailable Sementi, Shakira Consulting Unavailable Sementi, Shakira Admitting Unavailable CalabrTomasz boston Attending Unavailable Sementi, Shakira Referring Unavailable [facility] Unavailable Calabretta, Tomasz Consulting Unavailable Sementi, Shakira Consulting Unavailable Sementi, Shakira Admitting Unavailable Sementi, Shakira Attending Unavailable Sementi, Shakira Referring Unavailable [facility] Primary Care Unavailable Calabretta, Tomasz Consulting Unavailable Sementi, Shakira Consulting Unavailable Sementi, Shakira Admitting Unavailable CalabrettaAnnieTomasz Attending Unavailable Sementi, Shakira Referring Unavailable [facility] Primary Care Unavailable Calabretta, Tomasz Consulting Unavailable Sementi, Shakira Consulting Unavailable Sementi, Shakira Admitting Unavailable Sementi, Shakira Attending Unavailable Sementi, Shakira Referring Unavailable [facility] Primary Care Unavailable Calabretta, Tomasz Consulting Unavailable Sementi, Shakira Consulting Unavailable Sementi, Shakira Admitting Unavailable Calabretta, Tomasz Attending Unavailable Sementi, Shakira Referring Unavailable [facility] Primary Care Unavailable Calabretta, Tomasz Consulting Unavailable Sementi, Shakira Consulting Unavailable Sementi, Shakira Admitting Unavailable Sementi, Shakira Attending Unavailable Sementi, Shakira Referring Unavailable [facility] Primary Care Unavailable Calabretta, Tomasz Consulting [...] Consulting Unavailable Sementi, Shakira Admitting Unavailable Sementi, Shakiar Attending Unavailable Sementi, Shakira Referring Unavailable Smiley, Ramone Primary Care Unavailable Calabretta, Tomasz Consulting Unavailable Sementi, Shakira Consulting Unavailable Florentino, [place] Attending Unavailable Sementi, Shakira Referring Unavailable Smiley, Ramone Primary Care Unavailable Demetrius Arroyo Attending Unavailable Smiley, Ramone Attending Unavailable Smiley, Ramone Primary Care Unavailable Smiley, Ramone Referring Unavailable Smiley, Ramone Attending Unavailable Smiley, Ramone Referring Unavailable Smiley, Ramone Primary Care Unavailable Jeyson Almonte Attending Unavailable Smiley, Ramone Referring Unavailable Wellington Mullen Attending Unavailable Smiley, Ramone Primary Care Unavailable Wellington Mullen Referring Unavailable Smiley, Ramone Attending Unavailable Smiley, Ramone Primary Care Unavailable Smiley, Ramone Attending Unavailable Smiley, Ramone Referring Unavailable Smiley, Ramone Primary Care Unavailable Smiley, Ramone Attending Unavailable Smiley, Ramone Referring Unavailable Smiley, Ramone Primary Care Unavailable Smiley, Ramone Attending Unavailable Smiley, Ramone Primary Care Unavailable Smiley, Ramone Referring Unavailable Smiley, Ramone Primary Care Unavailable Kwaku Marcial Attending Unavailable Smiley, Ramone Primary Care Unavailable Carlos Hunt Attending Unavailable PROBLEMS PROBLEMS DATE TYPE CONDITION / CODE ATTENDING STATUS SOURCE 09/02/2018 Unknown N17.9 - Acute kidney Sementi, Active [place] failure, unspecified [facility] / N17.9(ICD-10) Hospital Repository 08/13/2018 Unknown R30.0 - Dysuria / Jewels, Active [place] R30.0(ICD-10) Olga Ryan [facility] Repository 06/14/2018 Unknown R70.0 - Elevated Ramone Smiley Active [place] erythrocyte Community sedimentation rate / Hospital R70.0(ICD-10) Repository 06/14/2018 Unknown E11.49 - Type 2 Ramone Smiley Active [place] diabetes mellitus [facility] with other diabetic Hospital neurological Repository complication / E11.49(ICD-10) 06/14/2018 Unknown 790.1 - Elevated Ramone Smiley Active [place] sedimentation rate / Community 790.1(ICD-9) Hospital Repository 06/14/2018 Unknown 250.60 - Diabetes Ramone Smiley Active [place] with neurological Community manifestations, type Hospital II or unspecified Repository type, not stated as uncontrolled / 250.60(ICD-9) 05/07/2018 Unknown R11.10 - Vomiting, Ramone Smiley Active [place] unspecified / Community R11.10(ICD-10) Hospital Repository 02/24/2018 Unknown I70.213 - Wellington Mullen Active [place] 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, bilateral legs / I70.213(ICD-10) 01/18/2018 Admitting Cutaneous abscess of [facility] hand / [facility] L02.511(ICD-10) Repository 01/11/2018 Unknown L03.011 - Cellulitis Ramone Smiley Active [place] of right finger / Community L03.011(ICD-10) Hospital Repository PROCEDURES PROCEDURES No Procedure Records FoundRESULTS RESULTS EMERGENCY DEPARTMENT Observed: 09/19/2018 Status: F Source: [place] SUMMARY 10:58 AM [facility] REPOSITORY [facility] Medical Records Department [address] [place] [address] Emergency Department Summary 09/19/18 0957 MR#: [id number] Acct: [id number] Name: OLGA DONALDSON Rep #: [id number] : 1945 73 From: Jose Arroyo MD [...] catheter obstruction This note was generated with Ide[employer] dictation software. It may contain incorrect words, [...] your Primary Care Provider. Call [facility] ([phone]) or report to the closest Emergency Room. Call 911 if necessary. 09/19/18 1058 <Electronically signed by Jose Arroyo MD> Date Jose Arroyo MD Cosigner Signature (If Indicated): Date CC: Ramone Smiley MD URINALYSIS, COMPLETE Collected: 09/19/2018 Status: F Source: [place] 9:55 AM [facility] REPOSITORY Order Comment: How was Urine Obtained? CLINICAL RADIOLOGIST TO SPECIFY TYPE CODE TESTS RESULT OUT [...] Normal YEAST-URINE Performed By: #### L400.0001 #### [facility] [address] [place], [place], [id number] Observed: 09/19/2018 Status: F Source: [place] CULTURE, URINE 9:55 AM [facility] REPOSITORY Urine Culture ORGANISM 1: Staphylococcus epidermidis [place] Count 25,000-50,000 ORGANISM 2: Enterococcus faecalis [place] Count 25,000-50,000 Staphylococcus epidermidis: REACTION Cefoxitin *NF [...] <=0.5 S (NF) indicates non-formulary drug at [facility]. Approval by Infectious Disease Specialist [...] 1 S (NF) indicates non-formulary drug at [facility]. Approval by Infectious Disease Specialist required before non-formulary drugs may be ordered and/or dispensed. * CLSI guidelines does not recommend testing of cephalosporins. This interpretation is deduced from Beta-lactam/penicillin results. Performed By: #### M100.0650 #### [facility] [address] [facility] [place], [address] DISCHARGE SUMMARY Observed: 08/26/2018 Status: F Source: [place] 12:46 PM [facility] REPOSITORY [facility] Medical Records Department [address] [place] [address] Discharge Summary 08/20/18 1308 MR#: [id number] Acct: [id number] Name: OLGA DONALDSON Rep #: [id number] : 1945 73 From: Connor Skaggs DO PCP: Ramone Smiley MD Status: DIS IN Y Location: [place]3 [id number] Discharge Date and Diagnosis Date of Admission: [...] Robert Randall MD at 14:17 EST Tel [phone], Service support , KUB X-Ray 08/17/18 07:46 IMPRESSION: Moderate amount of residual fecal material in the colon although this has improved. Electronically Signed: Robert Randall MD at 14:46 EST Tel [phone], Service support , KUB X-Ray 08/18/18 05:55 IMPRESSION: Nonspecific bowel gas pattern without evidence of obstruction. Decreased stool in the colon as compared to August 16, 2018. Electronically Signed: Kareem Ornelas MD at 5:46 EST , Service support , Laboratory Results - last 24 hr POC Glucose 192 H 245 H 171 H POC Glucose [address] Tomasz Umaña-[employer] [facility] Operations: None Procedures: Colonoscopy - 1 polyp in the cecum-biopsy results pending, EGD - mild gastritis Summary of Care Provided: The patient is a 73 year old F with a past medical history of hypertension, COPD, breast cancer, CRF stage III, microcytic anemia, VTE, tobacco dependence and DM II who presented to the ED at [facility] on 08/14/2018 complaining of nausea, vomiting [...] affect, pleasant This note was generated with Ideal Binary dictation software. It may contain incorrect words, [...] applicable Code Visit Inpatient E AND M: 35589 Disch Hosp 08/26/18 1246 <Electronically signed by Connor Skaggs DO> Date Connor Skaggs DO Cosigner Signature (if applicable): Date CC: Tomasz Umaña MD; Shakira Skaggs; Ramoen Smiley MD Signed DISCHARGE INSTRUCTION Observed: 08/20/2018 Status: F Source: [place] 1:08 PM [facility] REPOSITORY [facility] Medical Records Department [address] [place] [address] Instructions for Home/Discharge Instructions 08/20/18 1256 MR#: [id number] Acct: [id number] Name: OLGA DONALDSON Rep #: [id number] : 1945 73 From: Connor Skaggs DO [...] your medications and the diabetic diet. The aquarium specialist's here at the hospital have a program [...] NURSING PROTOCOL Performed By: #### L501.080 #### [facility] [address] [place], [place] [id number] BEDSIDE GLUCOSE Collected: 08/20/2018 Status: F Source: [place] 7:57 AM [facility] REPOSITORY TYPE CODE TESTS RESULT OUT OF REFERENCE UNITS RANGE LAB L501.080 70-110 mg/dL High BEDSIDE GLU 171 Result Comment: MANAGEMENT OF PATIENT CARE PER NURSING PROTOCOL Performed By: #### L501.080 #### [facility] Point of Care [address] [place] [address] BEDSIDE GLUCOSE Collected: 08/19/2018 Status: F Source: [place] 8:58 PM [facility] REPOSITORY TYPE CODE TESTS RESULT OUT OF REFERENCE UNITS RANGE LAB L501.080 70-110 mg/dL High BEDSIDE GLU 245 Result Comment: MANAGEMENT OF PATIENT CARE PER NURSING PROTOCOL Performed By: #### L501.080 #### [facility] Point of Care [address] [place] [address] BEDSIDE GLUCOSE Collected: 08/19/2018 Status: F Source: [place] 4:00 PM [facility] REPOSITORY TYPE CODE TESTS RESULT OUT OF REFERENCE UNITS RANGE LAB L501.080 70-110 mg/dL High BEDSIDE GLU 192 Result Comment: MANAGEMENT OF PATIENT CARE PER NURSING PROTOCOL Performed By: #### L501.080 #### [facility] Point of Care [address] [place] [address] BEDSIDE GLUCOSE Collected: 08/19/2018 Status: F Source: [place] 12:11 PM [facility] REPOSITORY TYPE CODE TESTS RESULT OUT OF RANGE REFERENCE UNITS LAB L501.080 70-110 mg/dL Normal BEDSIDE GLU 95 Result Comment: MANAGEMENT OF PATIENT CARE PER NURSING PROTOCOL Performed By: #### L501.080 #### [facility] Point of Care [address] [place] [address] OPERATIVE REPORT - Observed: 08/19/2018 Status: F Source: [place] ENDOSCOPY 11:12 AM [facility] Medical Records Department [address] [place] [address] Operative Report - Endoscopy MR#: [id number] Acct: [id number] Name: OLGA DONALDSON Rep #: [id number] : 1945 73 From: Tomasz Umaña MD [...] pathology results. Procedure Code(s): --- Professional --- 62285, Colonoscopy, flexible; with removal of tumor(s), polyp(s), or other lesion(s) by snare technique Diagnosis Code(s): --- Professional --- D12.0, Benign neoplasm of cecum D50.9, Iron deficiency anemia, unspecified CPT copyright 2017 [employer]. All rights reserved. The codes documented in this report are preliminary and upon teaching dietitian review may be revised to meet current compliance requirements. Tomasz Umaña MD 08/19/2018 11:11:47 AM This report has been signed electronically. Number of Addenda: 0 Note Initiated On: 08/19/2018 9:58 AM 08/19/18 1111 Date Tomasz Umaña MD Cosigner Signature: Date (if indicated) CC: Tomasz Umaña MD; Shakira Skaggs; Ramone Smiley MD Date Dictated: 08/19/18 0958 Date Transcribed: Manufacturing Maintenance Technician: WENDY Signed OPERATIVE REPORT - Observed: 08/19/2018 Status: F Source: [place] ENDOSCOPY 11:10 AM [facility] Medical Records Department [address] [place] [address] Operative Report - Endoscopy MR#: [id number] Acct: [id number] Name: OLGA DONALDSON Rep #: [id number] : 1945 73 From: Tomasz Umaña MD [...] present medications. Procedure Code(s): --- Professional --- 14216, Esophagogastroduodenoscopy, flexible, transoral; with removal of tumor(s), polyp(s), or other lesion(s) by snare technique Diagnosis Code(s): --- Professional --- K31.89, Other diseases of stomach and duodenum D50.9, Iron deficiency anemia, unspecified CPT copyright 2017 [employer]. All rights reserved. The codes documented in this report are preliminary and upon teaching dietitian review may be revised to meet current compliance requirements. Tomasz Umaña MD 08/19/2018 11:09:38 AM This report has been signed electronically. Number of Addenda: 0 Note Initiated On: 08/19/2018 8:34 AM 08/19/18 1109 Date Tomasz Umaña MD Cosigner Signature: Date (if indicated) CC: Tomasz Umaña MD; Shakira Skaggs; Ramone Smiley MD Date Dictated: 08/19/18 0834 Date Transcribed: Manufacturing Maintenance Technician: WENDY Signed GASTRIC BIOPSY Observed: 08/19/2018 Status: F Source: [place] 9:50 AM [facility] REPOSITORY Patient: OLGA DONALDSON : 1945 (73/F) Acct Num: [id number] Phys: GilesShakira Unit Num: [id number] Loc: [place]3 [id number] Specimen: [id number] Received: 08/19/18 - 1403 Spec Type: Gastric [...] one cassette. / SJ:raimundo 08/19/18 TC:1 CPT: 49409 x2 HEADER OPERATION: Colonoscopy, EGD ([facility]) PRE-OP DIAGNOSIS: Iron [...] file> Performed By: #### PGASB #### [place] [facility] [address] [place], [address] BEDSIDE GLUCOSE Collected: 08/19/2018 Status: F Source: [place] 8:15 AM [facility] REPOSITORY TYPE CODE TESTS RESULT OUT OF RANGE REFERENCE UNITS LAB L501.080 70-110 mg/dL Normal BEDSIDE GLU 99 Result Comment: MANAGEMENT OF PATIENT CARE PER NURSING PROTOCOL Performed By: #### L501.080 #### [facility] Point of Care [address] [place] [address] BASIC METABOLIC Collected: 08/19/2018 Status: F Source: [...] Performed By: #### L500.2500, L501.2300, L501.5200 #### [facility] [address] [place], [address] PHOSPHORUS Collected: 08/19/2018 Status: F Source: [place] 6:46 AM [facility] REPOSITORY TYPE CODE TESTS RESULT OUT OF RANGE REFERENCE UNITS LAB L501.2300 2.5-4.9 mg/dL Normal PHOS 2.5 Performed By: #### L500.2500, L501.2300, L501.5200 #### [facility] [address] [place], [address] MAGNESIUM Collected: 08/19/2018 Status: F Source: [place] 6:46 AM [facility] REPOSITORY TYPE CODE TESTS RESULT OUT OF RANGE REFERENCE UNITS LAB L501.5200 1.6-2.6 mg/dL Normal MG 1.9 Performed By: #### L500.2500, L501.2300, L501.5200 #### [facility] [address], [address] CBC W/DIFF, AUTOMATED Collected: 08/19/2018 Status: F Source: [place] 6:46 AM [facility] REPOSITORY TYPE [...] Normal 3+ Performed By: #### L100.0100 #### [facility] [address] [facility] [place], [address] BEDSIDE GLUCOSE Collected: 08/19/2018 Status: F Source: [place] 5:51 AM [facility] REPOSITORY TYPE CODE TESTS RESULT OUT OF REFERENCE UNITS RANGE LAB L501.080 70-110 mg/dL High BEDSIDE GLU 133 Result Comment: MANAGEMENT OF PATIENT CARE PER NURSING PROTOCOL Performed By: #### L501.080 #### [facility] Point of Care [address] [facility] [place] [address] BEDSIDE GLUCOSE Collected: 08/19/2018 Status: F Source: [place] 5:16 AM [facility] REPOSITORY TYPE CODE TESTS RESULT OUT OF REFERENCE UNITS RANGE LAB L501.080 70-110 mg/dL Low BEDSIDE GLU 60 Result Comment: MANAGEMENT OF PATIENT CARE PER NURSING PROTOCOL Performed By: #### L501.080 #### [facility] Point of Care [address] [facility] [place] [address] BEDSIDE GLUCOSE Collected: 08/18/2018 Status: F Source: [place] 9:09 PM [facility] REPOSITORY TYPE CODE TESTS RESULT OUT OF RANGE REFERENCE UNITS LAB L501.080 70-110 mg/dL Normal BEDSIDE GLU 108 Result Comment: MANAGEMENT OF PATIENT CARE PER NURSING PROTOCOL Performed By: #### L501.080 #### [facility] Point of Care [address] [place] [address] BEDSIDE GLUCOSE Collected: 08/18/2018 Status: F Source: [place] 4:42 PM [facility] REPOSITORY TYPE CODE TESTS RESULT OUT OF REFERENCE UNITS RANGE LAB L501.080 70-110 mg/dL High BEDSIDE GLU 130 Result Comment: MANAGEMENT OF PATIENT CARE PER NURSING PROTOCOL Performed By: #### L501.080 #### [facility] Point of Care [address] [place] [address] BEDSIDE GLUCOSE Collected: 08/18/2018 Status: F Source: [place] 11:06 AM [facility] REPOSITORY TYPE CODE TESTS RESULT OUT OF REFERENCE UNITS RANGE LAB L501.080 70-110 mg/dL High BEDSIDE GLU 133 Result Comment: MANAGEMENT OF PATIENT CARE PER NURSING PROTOCOL Performed By: #### L501.080 #### [facility] Point of Care [address] [place] [address] BEDSIDE GLUCOSE Collected: 08/18/2018 Status: F Source: [place] 7:17 AM [facility] REPOSITORY TYPE CODE TESTS RESULT OUT OF REFERENCE UNITS RANGE LAB L501.080 70-110 mg/dL High BEDSIDE GLU 162 Result Comment: MANAGEMENT OF PATIENT CARE PER NURSING PROTOCOL Performed By: #### L501.080 #### [facility] Point of Care [address] [place] [address] BEDSIDE GLUCOSE Collected: 08/18/2018 Status: F Source: [place] 6:16 AM [facility] REPOSITORY TYPE CODE TESTS RESULT OUT OF REFERENCE UNITS RANGE LAB L501.080 70-110 mg/dL Low BEDSIDE GLU 68 Result Comment: MANAGEMENT OF PATIENT CARE PER NURSING PROTOCOL Performed By: #### L501.080 #### [facility] Point of Care [address] [place] [address] ABDOMEN SINGLE VIEW Observed: 08/18/2018 Status: F Source: [place] (PORTABLE) 12:00 AM [facility] REPOSITORY [facility] Imaging Services [address] [place] [address] Abdomen Single View (Portable) MR#: [id number] Acct: [id number] Name: OLGA DONALDSON Rep #: [id number] : 1945 F 73 From: Kareem [place] PCP: Ramone Smiley MD Status: ADM IN Study: Abdomen Single View (Portable) Date of Exam: 08/18/18 Exam# [id number] Ordering Dr: Tomasz Umaña MD STUDY: X-RAY [...] CC: Tomasz Umaña MD; Ramone Smiley MD Manufacturing Maintenance Technician: Signed BEDSIDE GLUCOSE Collected: 08/17/2018 Status: F Source: [place] 9:01 PM [facility] REPOSITORY TYPE CODE TESTS RESULT OUT OF RANGE REFERENCE UNITS LAB L501.080 70-110 mg/dL Normal BEDSIDE GLU 81 Result Comment: MANAGEMENT OF PATIENT CARE PER NURSING PROTOCOL Performed By: #### L501.080 #### [facility] Point of Care [address] [place] [address] BEDSIDE GLUCOSE Collected: 08/17/2018 Status: F Source: [place] 4:42 PM [facility] REPOSITORY TYPE CODE TESTS RESULT OUT OF RANGE REFERENCE UNITS LAB L501.080 70-110 mg/dL Normal BEDSIDE GLU 79 Result Comment: MANAGEMENT OF PATIENT CARE PER NURSING PROTOCOL Performed By: #### L501.080 #### [facility] Point of Care [address] [place] [address] BEDSIDE GLUCOSE Collected: 08/17/2018 Status: F Source: [place] 11:34 AM [facility] REPOSITORY TYPE CODE TESTS RESULT OUT OF RANGE REFERENCE UNITS LAB L501.080 70-110 mg/dL Normal BEDSIDE GLU 101 Result Comment: MANAGEMENT OF PATIENT CARE PER NURSING PROTOCOL Performed By: #### L501.080 #### [facility] Point of Care [address] [place] [address] ABDOMEN SINGLE VIEW Observed: 08/17/2018 Status: F Source: [place] 7:47 AM [facility] REPOSITORY [facility] Imaging Services [address] [place], [place] [address] Abdomen Single View MR#: [id number] Acct: [id number] Name: OLGA DONALDSON Rep #: [id number] : 1945 F 73 From: Robert Randall MD PCP: Ramone Smiley MD Status: ADM IN Study: Abdomen Single View Date of Exam: 08/17/18 Exam# [id number] Ordering Dr: Connor Skaggs DO STUDY: X-RAY [...] Robert Randall MD at 14:46 EST Tel [phone], Service support , CC: Shakira Skaggs; Ramone Smiley MD Manufacturing Maintenance Technician: Signed CBC-COMPLETE BLOOD CNT Collected: 08/17/2018 Status: [...] 9.2 Performed By: #### L100.0500, L100.4500 #### [facility] [address] [place], [place], [address] DIFFERENTIAL COMMENT Collected: 08/17/2018 Status: F Source: [place] 6:57 AM [facility] REPOSITORY TYPE CODE TESTS RESULT OUT OF RANGE REFERENCE UNITS LAB L100.4500 Normal SMEAR COMMENT COMMENT Result Comment: SLIDE SCANNED - 1+ ANISO, 1+ HYPOCHROMIA. Performed By: #### L100.0500, L100.4500 #### [facility] [address] [place], [place], [address] BASIC METABOLIC Collected: 08/17/2018 Status: F Source: [...] GAP 8 Performed By: #### L500.2500 #### [facility] [address] [place], [place], [address] BEDSIDE GLUCOSE Collected: 08/17/2018 Status: F Source: [place] 6:23 AM [facility] REPOSITORY TYPE CODE TESTS RESULT OUT OF RANGE REFERENCE UNITS LAB L501.080 70-110 mg/dL Normal BEDSIDE GLU 83 Result Comment: MANAGEMENT OF PATIENT CARE PER NURSING PROTOCOL Performed By: #### L501.080 #### [facility] Point of Care [address] [place], [place] [address] BEDSIDE GLUCOSE Collected: 08/16/2018 Status: F Source: [place] 10:54 PM [facility] REPOSITORY TYPE CODE TESTS RESULT OUT OF REFERENCE UNITS RANGE LAB L501.080 70-110 mg/dL High BEDSIDE GLU 144 Result Comment: MANAGEMENT OF PATIENT CARE PER NURSING PROTOCOL Performed By: #### L501.080 #### [facility] Point of Care [address] [place] [address] BEDSIDE GLUCOSE Collected: 08/16/2018 Status: F Source: [place] 5:11 PM [facility] REPOSITORY TYPE CODE TESTS RESULT OUT OF REFERENCE UNITS RANGE LAB L501.080 70-110 mg/dL High BEDSIDE GLU 204 Result Comment: MANAGEMENT OF PATIENT CARE PER NURSING PROTOCOL Performed By: #### L501.080 #### [facility] Point of Care [address] [place] [address] ECHOCARDIOGRAM COMPLETE Observed: 08/16/2018 Status: F Source: [place] 1:55 PM [facility] REPOSITORY [facility] Cardiovascular Services [address] [place] [address] Echo Complete 08/16/18 1123 MR#: [id number] Acct: [id number] Name: OLGA DONALDSON Rep #: [id number] : 1945 73 From: Se Good MD Attending Dr: Shakira Skaggs Status: ADM IN Ordering Dr: Connor Skaggs DO Date: 08/14/18 Location: [facility] Sex: F AA Admitted: 08/14/18 Reason For [...] Performed By: Margot Cleary, DALIA, RVT 08/16/18 9405 Date Se Good MD CC: Shakira Skaggs; Ramone Smiley MD Date Dictated: 08/16/18 1123 Date Transcribed: 08/16/18 1355 Manufacturing Maintenance Technician: Signed BEDSIDE GLUCOSE Collected: 08/16/2018 Status: F Source: [place] 11:43 AM [facility] REPOSITORY TYPE CODE TESTS RESULT OUT OF REFERENCE UNITS RANGE LAB L501.080 70-110 mg/dL High BEDSIDE GLU 398 Result Comment: MANAGEMENT OF PATIENT CARE PER NURSING PROTOCOL Performed By: #### L501.080 #### [facility] Point of Care [address] [place] [address] ABDOMEN SINGLE VIEW Observed: 08/16/2018 Status: F Source: [place] 8:12 AM [facility] REPOSITORY [facility] Imaging Services [address] [place] [address] Abdomen Single View MR#: [id number] Acct: [id number] Name: OLGA DONALDSON Rep #: [id number] : 1945 F 73 From: Robert Randall MD PCP: Ramone Smiley MD Status: ADM IN Study: Abdomen Single View Date of Exam: 08/16/18 Exam# [id number] Ordering Dr: Tomasz Umaña MD STUDY: X-RAY [...] Robert Randall MD at 14:17 EST Tel [phone], Service support , CC: Tomasz Umaña MD; Ramone Smiley MD Manufacturing Maintenance Technician: Signed CBC W/DIFF, AUTOMATED Collected: 08/16/2018 Status: [...] Normal RARE Performed By: #### L100.0100 #### [facility] [address] [facility] [place], [place], [address] BASIC METABOLIC Collected: 08/16/2018 Status: F Source: [place] PROFILE (BMP) 6:46 AM [facility] [...] 7 Performed By: #### L500.2500, L501.2300 #### [facility] [address], [address] PHOSPHORUS Collected: 08/16/2018 Status: F Source: [place] 6:46 AM [facility] REPOSITORY TYPE CODE TESTS RESULT OUT OF RANGE REFERENCE UNITS LAB L501.2300 2.5-4.9 mg/dL Normal PHOS 2.6 Performed By: #### L500.2500, L501.2300 #### [facility] [address] [place], [address] CORTISOL SERUM Collected: 08/16/2018 Status: F Source: [place] 6:46 AM [facility] REPOSITORY TYPE CODE TESTS RESULT OUT OF RANGE REFERENCE UNITS LAB L509.6000 3.09-22.40 ug/dL Normal CORTISOL 11.00 Result Comment: Adult (AM) 4.30 - 22.40 ug/dL Adult (PM) 3.09 - 16.66 ug/dL Performed By: #### L509.6000 #### [facility] [address] [place], [address] THYROID ANTIBODIES Collected: 08/16/2018 Status: F Source: [place] 6:46 AM [facility] REPOSITORY TYPE CODE TESTS RESULT OUT OF RANGE REFERENCE UNITS LAB L3300.6900 0-34 IU/mL Normal TPO AB 12 6676 LAB L3300.7027 0.0-0.9 IU/mL Normal TG AB < 1.0 Result Comment: Thyroglobulin Antibody measured by Cierra Sharyn Methodology Performed at: - [facility] [address] [id number] Student Affairs Dean: Chavo Schafer PhD, Phone: [phone] Performed By: #### L3300.6750 #### [facility] (refer [...] NURSING PROTOCOL Performed By: #### L501.080 #### [facility] Point of Care [address] [place] [address] HH, HEMOGLOBIN AND Collected: 08/16/2018 Status: F Source: [place] HEMATOCRIT 1:00 AM [facility] REPOSITORY TYPE CODE TESTS RESULT OUT OF RANGE REFERENCE UNITS LAB L100.1300 12.0-15.0 g/dl Low HGB 9.0 LAB L100.1400 37-47 % Low HCT 29.5 Performed By: #### L100.0600 #### [facility] [address] [place], [address] BEDSIDE GLUCOSE Collected: 08/15/2018 Status: F Source: [place] 11:54 PM [facility] REPOSITORY TYPE CODE TESTS RESULT OUT OF REFERENCE UNITS RANGE LAB L501.080 70-110 mg/dL High BEDSIDE GLU 168 Result Comment: MANAGEMENT OF PATIENT CARE PER NURSING PROTOCOL Performed By: #### L501.080 #### [facility] Point of Care [address] [place] [address] Observed: 08/15/2018 Status: F Source: [place] CULTURE, URINE 7:00 PM [facility] REPOSITORY Urine Culture Culture exhibits no growth. Performed By: #### M100.0650 #### [facility] [address] [place], [address] BEDSIDE GLUCOSE Collected: 08/15/2018 Status: F Source: [place] 4:50 PM [facility] REPOSITORY TYPE CODE TESTS RESULT OUT OF REFERENCE UNITS RANGE LAB L501.080 70-110 mg/dL High BEDSIDE GLU 153 Result Comment: MANAGEMENT OF PATIENT CARE PER NURSING PROTOCOL Performed By: #### L501.080 #### [facility] Point of Care [address] [place] [address] BEDSIDE GLUCOSE Collected: 08/15/2018 Status: F Source: [place] 12:48 PM [facility] REPOSITORY TYPE CODE TESTS RESULT OUT OF REFERENCE UNITS RANGE LAB L501.080 70-110 mg/dL High BEDSIDE GLU 274 Result Comment: MANAGEMENT OF PATIENT CARE PER NURSING PROTOCOL Performed By: #### L501.080 #### [facility] Point of Care [address] [place] [address] CONSULTATION Observed: 08/15/2018 Status: F Source: [place] 9:57 AM [facility] REPOSITORY [facility] Medical Records Department [address] [place] [address] Consultation 08/15/18 0954 MR#: [id number] Acct: [id number] Name: OLGA DONALDSON Rep #: [id number] : 1945 73 From: Tomasz Umaña MD PCP: Ramone Smiley MD Status: ADM IN [facility] Problem List (1) Anemia Status: Acute Qualifiers: [...] Oil/Beeswax/Safflower [Lip 90 gm TP DAILY 12/25/14 [employer]] Cod Liver Oil 1 ea [...] significant. Psychiatric History: No pertinent psych hx WIRE CHIEF History: No pertinent WIRE CHIEF history Lives: Spouse/ Significant Other Smoking Status: [...] proceed with procedure. Tomasz Umaña MD Pager: [facility] [address] [place] [address], [address] [place] [address] Office: 08/15/18 0957 <Electronically signed by Tomasz [...] 10.1 Performed By: #### L100.0500, L100.4500 #### [facility] [address] [place], [place], [address] DIFFERENTIAL COMMENT Collected: 08/15/2018 Status: F Source: [place] 6:03 AM [facility] REPOSITORY TYPE CODE TESTS RESULT OUT OF RANGE REFERENCE UNITS LAB L100.4500 Normal SMEAR COMMENT SCAN Result Comment: ANISOCYTOSIS 1+ MICROCYTOSIS 1+ HYPOCHROMIA 2+ POLYCHROMASIA 1+ Performed By: #### L100.0500, L100.4500 #### [facility] [address] [place], [place], [address] COMPREHENSIVE METABOLIC Collected: 08/15/2018 Status: F Source: [facility] 6:03 AM [facility] REPOSITORY TYPE [...] Performed By: #### L500.4050, L501.2300, L501.5200 #### [facility] [address] [facility] [place], [place], [address] PHOSPHORUS Collected: 08/15/2018 Status: F Source: [place] 6:03 AM [facility] REPOSITORY TYPE CODE TESTS RESULT OUT OF RANGE REFERENCE UNITS LAB L501.2300 2.5-4.9 mg/dL Low PHOS 2.3 Performed By: #### L500.4050, L501.2300, L501.5200 #### [facility] [address] [place], [place], [address] MAGNESIUM Collected: 08/15/2018 Status: F Source: [place] 6:03 AM [facility] REPOSITORY TYPE CODE TESTS RESULT OUT OF RANGE REFERENCE UNITS LAB L501.5200 1.6-2.6 mg/dL Normal MG 2.3 Performed By: #### L500.4050, L501.2300, L501.5200 #### [facility] [address] [place], [address] FREE T3 Collected: 08/15/2018 Status: F Source: [place] 6:03 AM [facility] REPOSITORY TYPE CODE TESTS RESULT OUT OF RANGE REFERENCE UNITS LAB L501.81967 2.18-3.98 pg/mL Normal FREE T3 3.1 Performed By: #### L501.93946, L501.9310 #### [facility] [address] [place], [address] T4 TOTAL, THYROXIN Collected: 08/15/2018 Status: F Source: [place] 6:03 AM [facility] REPOSITORY TYPE CODE TESTS RESULT OUT OF RANGE REFERENCE UNITS LAB L501.9310 4.8-13.9 ug/dL T4 Normal THYROXIN 8.4 Performed By: #### L501.15549, L501.9310 #### [facility] [address] [place], [address] BEDSIDE GLUCOSE Collected: 08/15/2018 Status: F Source: [place] 5:33 AM [facility] REPOSITORY TYPE CODE TESTS RESULT OUT OF RANGE REFERENCE UNITS LAB L501.080 70-110 mg/dL Normal BEDSIDE GLU 109 Result Comment: MANAGEMENT OF PATIENT CARE PER NURSING PROTOCOL Performed By: #### L501.080 #### [facility] Point of Care [address] [place] [address] Observed: 08/15/2018 Status: F Source: [place] STOOL OCCULT BLOOD 5:10 AM [facility] IFOB REPOSITORY STOB iFOB Normal Reference Range = Negative. CRITICAL VALUE VERIFIED. CALLED TO HAILEY URIAS 08/15/18 0618 [facility]. RESULTS READ BACK BY SAME . Occult Blood Positive ORGANISM 1: OCCULT BLOOD POSITIVE Performed By: #### M100.7900 #### [facility] [address] [place], [address] HH, HEMOGLOBIN AND Collected: 08/15/2018 Status: F Source: [place] HEMATOCRIT 1:45 AM [facility] REPOSITORY TYPE CODE TESTS RESULT OUT OF RANGE REFERENCE UNITS LAB L100.1300 12.0-15.0 g/dl Low HGB 7.0 LAB L100.1400 37-47 % Low HCT 24.6 Performed By: #### L100.0600 #### [facility] [address] [place], [address] BEDSIDE GLUCOSE Collected: 08/14/2018 Status: F Source: [place] 10:19 PM [facility] REPOSITORY TYPE CODE TESTS RESULT OUT OF REFERENCE UNITS RANGE LAB L501.080 70-110 mg/dL High BEDSIDE GLU 283 Result Comment: MANAGEMENT OF PATIENT CARE PER NURSING PROTOCOL Performed By: #### L501.080 #### [facility] Point of Care [address] [place] [address] HH, HEMOGLOBIN AND Collected: 08/14/2018 Status: F Source: [place] HEMATOCRIT 8:10 PM [facility] REPOSITORY Order Comment: RAC TYPE CODE TESTS RESULT OUT OF RANGE REFERENCE UNITS LAB L100.1300 12.0-15.0 g/dl Low HGB 7.3 LAB L100.1400 37-47 % Low HCT 26.2 Performed By: #### L100.0600, L100.9950 #### [facility] [address] [place], [address] RETIC PANEL Collected: 08/14/2018 Status: F Source: [...] marrow. Performed By: #### L100.0600, L100.9950 #### [facility] [address] [place], [address] THYROID STIM HORMONE Collected: 08/14/2018 Status: F Source: [place] (TSH) 8:10 PM [facility] REPOSITORY Order Comment: RAC TYPE CODE TESTS RESULT OUT OF RANGE REFERENCE UNITS LAB L501.9520 0.358-3.74 uIU/mL Low TSH 0.01 Performed By: #### L501.9520, L503.6030, L503.6550 #### [facility] [address] [place], [address] IRON+IRON BINDING Collected: 08/14/2018 Status: F Source: [place] CAPACITY 8:10 PM [facility] REPOSITORY Order Comment: RAC TYPE CODE TESTS RESULT OUT OF RANGE REFERENCE UNITS LAB L503.6075 250-450 ug/dL TIBC Normal 303 LAB L503.6150 50-170 ug/dL Low IRON 14 LAB L503.6250 15.0-55.0 % Low IRON SATURATION 4.6 Performed By: #### L501.9520, L503.6030, L503.6550 #### [facility] [address] [place], [place], [address] FERRITIN Collected: 08/14/2018 Status: F Source: [place] 8:10 PM [facility] REPOSITORY Order Comment: RAC TYPE CODE TESTS RESULT OUT OF RANGE REFERENCE UNITS LAB L503.6550 8-252 ng/mL Normal FERRITIN 22 Performed By: #### L501.9520, L503.6030, L503.6550 #### [facility] [address] [place], [address] HEMOGLOBIN A1C Collected: 08/14/2018 Status: F Source: [place] 8:10 PM [facility] REPOSITORY Order Comment: RAC TYPE CODE TESTS RESULT OUT OF RANGE REFERENCE UNITS LAB L501.9985 4.2-6.3 % High HGB A1C 13.7 Performed By: #### L501.9985 #### [facility] [address] [place], [address] TYPE AND SCREEN Collected: 08/14/2018 Status: F Source: [place] 8:10 PM [facility] REPOSITORY Order [...] NEGATIVE Screen Performed By: #### B101.7450 #### [facility] [address] [place], [address] RC Collected: 08/14/2018 Status: F Source: [place] 8:10 PM [facility] REPOSITORY TYPE CODE TESTS RESULT OUT OF REFERENCE UNITS RANGE LAB U100.0000 [id number] TRANSFUSED PRODUCT: T AND S with Crossmatch, Red Cells COUNT: 2 Performed By: #### U100.0000 #### [facility] - refer to report for specific site HISTORY AND PHYSICAL Observed: 08/14/2018 Status: F Source: [place] EXAM 5:53 PM [facility] REPOSITORY [facility] Medical Records Department [address] [place] [address] History and Physical 08/14/18 1726 MR#: [id number] Acct: [id number] Name: OLGA DONALDSON Rep #: [id number] : 1945 73 From: Connor Skaggs DO PCP: Ramone Smiley MD Status: ADM IN Y [facility] Problem List (1) Acute renal failure Status: [...] II who presented to the ED at [facility] on 08/14/2018 complaining of nausea, vomiting [...] Oil/Beeswax/Safflower [Lip 90 gm TP DAILY 12/25/14 [employer]] Cod Liver Oil 1 ea [...] significant. Psychiatric History: No pertinent psych hx WIRE CHIEF History: No pertinent WIRE CHIEF history Lives: Spouse/ Significant Other Smoking Status: [...] list Code Visit Inpatient Yoni AND M: [id number] Init Hosp L3 08/14/18 4193 <Electronically signed by Connor Skaggs DO> Date [...] Normal RARE Performed By: #### L400.0001 #### [facility] [address] [place], [address] CREATININE, URINE Collected: 08/14/2018 Status: F Source: [place] (RANDOM) 4:20 PM [facility] REPOSITORY TYPE CODE TESTS RESULT OUT OF RANGE REFERENCE UNITS LAB L501.1200 NO RANGE EST. mg/dL Normal UR CREAT 116.00 Performed By: #### L501.1200, L501.5500 #### [facility] [address] [place], [address] URINE SODIUM Collected: 08/14/2018 Status: F Source: [place] 4:20 PM [facility] REPOSITORY TYPE CODE TESTS RESULT OUT OF RANGE REFERENCE UNITS LAB L501.5500 Not Establ. mmol/L Normal UR NA 64 Performed By: #### L501.1200, L501.5500 #### [facility] [address] [place], [address] EMERGENCY DEPARTMENT Observed: 08/14/2018 Status: F Source: [place] SUMMARY 4:15 PM [facility] REPOSITORY [facility] Medical Records Department [address] [place] [address] Emergency Department Summary 08/14/18 1612 MR#: [id number] Acct: [id number] Name: OLGA DONALDSON Rep #: [id number] : 1945 73 From: Robert Allison DO [...] Anemia-chronic Dizziness] This note was generated with [employer] dictation software. It may contain incorrect words, [...] problems, contact your Primary Care Provider. Call [facility] ([phone]) or report to the closest Emergency Room. Call 911 if necessary. 08/14/18 1624 <Electronically signed by Robert Allison DO> Date Robert Allison DO Cosigner Signature (If Indicated): Date CC: Ramone Smiley MD ABDOMEN/PELVIS WITHOUT Observed: 08/14/2018 Status: F Source: [place] CONT 3:53 PM [facility] REPOSITORY [facility] Imaging Services [address] [place] [address] Abdomen/Pelvis without Cont MR#: [id number] Acct: [id number] Name: OLGA DONALDSON Rep #: [id number] : 1945 F 73 From: Zechariah Redmond MD PCP: Ramone Smiley MD Status: ADM IN Study: Abdomen/Pelvis without Cont Date of Exam: 08/14/18 Exam# [id number] Ordering Dr: Robert Allison DO STUDY: CT [...] CC: Ramone Smiley MD; Robert Allison DO Manufacturing Maintenance Technician: Signed CBC W/DIFF, AUTOMATED Collected: 08/14/2018 Status: F Source: [place] 2:30 PM [facility] REPOSITORY TYPE [...] Normal 2+ Performed By: #### L100.0100 #### [facility] [address] [place], [address] BASIC METABOLIC Collected: 08/14/2018 Status: F Source: [place] PROFILE ([facility]) 2:30 PM [facility] REPOSITORY TYPE [...] GAP 10 Performed By: #### L500.2500 #### [facility] [address] [place], [address] Observed: 08/12/2018 Status: F Source: [place] CULTURE, URINE 2:45 PM [facility] REPOSITORY Urine Culture ORGANISM 1: Yeast [place] Count 25,000-50,000 Performed By: #### M100.0650 #### [facility] [address] [place], [address] EMERGENCY DEPARTMENT Observed: 07/04/2018 Status: F Source: [place] SUMMARY 2:59 AM [facility] REPOSITORY [facility] Medical Records Department [address] [place] [address] Emergency Department Summary 07/04/18 0124 MR#: [id number] Acct: [id number] Name: OLGA DONALDSON Rep #: [id number] : 1945 73 From: Carlos Hunt MD [...] will be started on Cipro. I did behavioral health counselor her that she needs to follow-up with Dr. Carrillo as this is recurrent retention. I am going to treat her constipation with magnesium citrate. The patient is comfortable with this plan of care. She will be discharged home. Treatment Plan: [] Disposition: [] Impression: Acute urinary retention 2. Acute cystitis This note was generated with Ideal [employer] dictation software. It may contain incorrect words, [...] your Primary Care Provider. Call [facility] ([phone]) or report to the closest Emergency Room. [...] Normal YEAST-URINE Performed By: #### L400.0001 #### [facility] [address] [place], [address] Observed: 07/04/2018 Status: F Source: [place] CULTURE, URINE 1:35 AM [facility] REPOSITORY Urine Culture ORGANISM 1: Nithya albicans [place] Count >100,000 Performed By: #### M100.0650 #### [facility] [address] [place], [address] EMERGENCY DEPARTMENT Observed: 06/25/2018 Status: F Source: [place] SUMMARY 6:54 PM [facility] REPOSITORY [facility] Medical Records Department [address] [place] [address] Emergency Department Summary 06/25/18 1848 MR#: [id number] Acct: [id number] Name: OLGA DONALDSON Rep #: [id number] : 1945 73 From: Kwaku Marcial MD [...] II diabetic This note was generated with Ide[employer] dictation software. It may contain incorrect words, [...] your Primary Care Provider. Call [facility] ([phone]) or report to the closest Emergency Room. Call 911 if necessary. 06/25/18 9124 <Electronically signed by Kwaku Marcial MD> Date Kwaku Marcial MD Cosigner Signature (If Indicated): Date CC: Ramone Smiley MD; Presley Edmondson MD BASIC METABOLIC Collected: 06/25/2018 Status: F Source: [place] PROFILE ([facility]) 4:44 PM [facility] REPOSITORY TYPE [...] GAP 8 Performed By: #### L500.2500 #### [facility] [address] [place], [address] URINALYSIS, COMPLETE Collected: 06/25/2018 Status: F Source: [...] URINE SEEN Performed By: #### L400.0001 #### [facility] [address] [place], [address] ABDOMEN/PELVIS WITH Observed: 06/25/2018 Status: F Source: [place] CONTRAST 1:19 PM [facility] REPOSITORY [facility] Imaging Services [address] [place] [address] Abdomen/Pelvis WITH Contrast MR#: [id number] Acct: [id number] Name: OLGA DONALDSON Rep #: [id number] : 1945 F 73 From: Robert Randall MD PCP: Ramone Smiley MD Status: REG CLI Study: Abdomen/Pelvis WITH Contrast Date of Exam: 06/25/18 Exam# [id number] Ordering Dr: Ramone Smiley MD STUDY: CT [...] Robert Randall MD at 14:37 EDT Tel [phone], Service support , CC: Ramone Smiley MD Manufacturing Maintenance Technician: Signed PTHIN Collected: 06/15/2018 Status: F Source: [place] 12:38 PM [facility] REPOSITORY Order Comment: PLEASE ADD PTHIN TO BLOOD DONE 06/14/18 PER TYPE CODE TESTS RESULT OUT OF RANGE REFERENCE UNITS LAB L509.1000 18.4-80.1 pg/mL High PTHIN 137.3 Performed By: #### L509.1000 #### [facility] [address] [place], [address] ERYTHROCYTE SED RATE Collected: 06/14/2018 Status: F Source: [place] 12:38 PM [facility] REPOSITORY TYPE CODE TESTS RESULT OUT OF RANGE REFERENCE UNITS LAB L102.0000 0-30 mm/hr High SED RATE 124 Performed By: #### L101.9900, L100.0100, L500.4050, L501.9520 #### [facility] [address] [place], [address] CBC W/DIFF, AUTOMATED Collected: 06/14/2018 Status: F Source: [place] 12:38 PM [facility] REPOSITORY TYPE [...] By: #### L101.9900, L100.0100, L500.4050, L501.9520 #### [facility] [address] [place], [place], [address] COMPREHENSIVE METABOLIC Collected: 06/14/2018 Status: F Source: [facility] 12:38 PM [facility] REPOSITORY TYPE [...] By: #### L101.9900, L100.0100, L500.4050, L501.9520 #### [facility] [address] [place], [place], [address] THYROID STIM HORMONE Collected: 06/14/2018 Status: F Source: [place] (TSH) 12:38 PM [facility] REPOSITORY TYPE CODE TESTS RESULT OUT OF RANGE REFERENCE UNITS LAB L501.9520 0.358-3.74 uIU/mL Normal TSH 0.46 Performed By: #### L101.9900, L100.0100, L500.4050, L501.9520 #### [facility] [address] [place], [place], [address] CRP Collected: 06/14/2018 Status: F Source: [place] [...] be ordered. Performed By: #### L501.6710 #### [facility] [address] [place], [address] ABD INC DECUB Observed: 05/07/2018 Status: F Source: [place] AND/OR ERECT 12:56 PM [facility] REPOSITORY [facility] Imaging Services [address] [place] [address] Abd Inc Decub and/or Erect MR#: [id number] Acct: [id number] Name: OLGA DONALDSON Rep #: [id number] : 1945 F 73 From: Raji Gonzalez MD PCP: Ramone Smiley MD Status: REG CLI Study: Abd Inc Decub and/or Erect Date of Exam: 05/07/18 Exam# [id number] Ordering Dr: Ramone Smiley MD STUDY: X-RAY [...] Service support , CC: Ramone Smiley MD Manufacturing Maintenance Technician: Signed COMPREHENSIVE METABOLIC Collected: 05/07/2018 Status: F [...] Performed By: #### L500.4050, L501.6710, L501.9520 #### [facility] [address] [place], [address] CRP Collected: 05/07/2018 Status: F Source: [place] 12:26 PM [facility] REPOSITORY TYPE [...] Performed By: #### L500.4050, L501.6710, L501.9520 #### [facility] [address] [place], [address] THYROID STIM HORMONE Collected: 05/07/2018 Status: F Source: [place] (TSH) 12:26 PM [facility] REPOSITORY TYPE CODE TESTS RESULT OUT OF RANGE REFERENCE UNITS LAB L501.9520 0.358-3.74 uIU/mL Normal TSH 0.64 Performed By: #### L500.4050, L501.6710, L501.9520 #### [facility] [address] [facility] [place], [address] CBC W/DIFF, AUTOMATED Collected: 05/07/2018 Status: F Source: [place] 12:26 PM [facility] REPOSITORY TYPE [...] RARE Performed By: #### L100.0100, L101.9900 #### [facility] [address] [place], [address] ERYTHROCYTE SED RATE Collected: 05/07/2018 Status: F Source: [place] 12:26 PM [facility] REPOSITORY TYPE CODE TESTS RESULT OUT OF RANGE REFERENCE UNITS LAB L102.0000 0-30 mm/hr High SED RATE 84 Performed By: #### L100.0100, L101.9900 #### [facility] [address] [place], [address] LOWER EXT ARTERIAL Observed: 03/10/2018 Status: F Source: [facility] 11:30 AM [facility] REPOSITORY [facility] Cardiovascular Services [address] [place] [address] 03/10/18 1127 MR#: [id number] Acct: [id number] Name: OLGA DONALDSON Rep #: [id number] : 1945 73 From: Wellington Mullen MD [...] MD Date Dictated: 03/10/181126 Date Transcribed: 03/10/181126 Manufacturing Maintenance Technician: RENU Signed Observed: 01/18/2018 Status: F Source: [employer] CULTURE FUNGUS 3:30 PM SYSTEM REPOSITORY 1 Organism Nithya albicans Many Performed By: #### C/FUN, S/FUN #### [facility] [address] [place] [phone] Observed: 01/18/2018 Status: F Source: [employer] STAIN FUNGUS 3:30 PM SYSTEM REPOSITORY STAIN FUNGUS --> Status: F 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 Direct exam by Calcofluor stain. Direct exam by Calcofluor stain. Performed By: #### C/FUN, S/FUN #### [facility] [address] [place] [address] FINGER(S) MIN 2 VIEWS Observed: 01/11/2018 Status: F Source: [place] 6:40 PM [facility] REPOSITORY [facility] Imaging Services [address] [place] [address] Finger(s) Min 2 Views MR#: [id number] Acct: [id number] Name: OLGA DONALDSON Rep #: [id number] : 1945 F 73 From: Glenna Stein MD PCP: Ramone Smiley MD Status: REG CLI Study: Finger(s) Min 2 Views Date of Exam: 01/11/18 Exam# [id number] Ordering Dr: Ramone Smiley MD STUDY: X-RAY [...] Service support , CC: Ramone Smiley MD Manufacturing Maintenance Technician: Signed CBC W/DIFF, AUTOMATED Collected: 01/11/2018 Status: F Source: [place] 6:29 PM [facility] REPOSITORY Order Comment: Order Date: 01/11/18 Order Info: 0184-1 - CBCD Order Info: 39233-0 - SED TYPE CODE TESTS RESULT OUT [...] By: #### L100.0100, L500.4050, L501.1400, L101.9900 #### [facility] [address] [place], [address] COMPREHENSIVE METABOLIC Collected: 01/11/2018 Status: F Source: [...] By: #### L100.0100, L500.4050, L501.1400, L101.9900 #### [facility] [address] [place], [address] URIC ACID Collected: 01/11/2018 Status: F Source: [place] 6:29 PM [facility] REPOSITORY Order Comment: Order Date: 01/11/18 Order Info: 0786-1 - CMP Order Info: 3084-1 - URIC TYPE CODE TESTS RESULT OUT OF RANGE REFERENCE UNITS LAB L501.1400 2.6-6.0 mg/dL Normal URIC 5.1 Result Comment: The drugs N-Acetylcysteine and Metamizole may falsely depress this assay. Performed By: #### L100.0100, L500.4050, L501.1400, L101.9900 #### [facility] [address] [place], [address] ERYTHROCYTE SED RATE Collected: 01/11/2018 Status: F Source: [place] 6:29 PM [facility] REPOSITORY Order Comment: Order Date: 01/11/18 Order Info: 0184-1 - CBCD Order Info: 42004-5 - SED TYPE CODE TESTS RESULT OUT OF RANGE REFERENCE UNITS LAB L102.0000 0-30 mm/hr High SED RATE > 130 Performed By: #### L100.0100, L500.4050, L501.1400, L101.9900 #### [facility] [address] [place], [address] Observed: 10/21/2017 Status: F Source: [place] CULTURE, [...] 0.5 S (NF) indicates non-formulary drug at [facility]. Approval by Infectious Disease Specialist [...] <=20 S (NF) indicates non-formulary drug at [facility]. Approval by Infectious Disease Specialist required before non-formulary drugs may be ordered and/or dispensed. Performed By: #### M100.1400 #### [facility] [address] [place], [place] [address]yoni. [place], [address] ALLERGIES ALLERGIES DATE TYPE / CODE NAME / CODE REACTION SEVERITY SOURCE Drug cephalexin Rash Unknown [place] Allergy/794487201( monohydrate/F000 [facility] 309002(RXNORM) Hospital Repository Drug clopidogrel Other Unknown [place] Allergy/260524053( bisulfate/P62316 [facility]) 7364(RXNORM) Hospital Repository Drug amoxicillin/F006 YEAST Unknown [place] Allergy/417732147( 364249(RXNORM) INFECTION [facility] SNOMED CT) Hospital Repository Miscellaneous cloth tap Other Unknown [place] 9 Allergy/382956432( [facility] SNOMED CT) Hospital Repository ENCOUNTERS ENCOUNTERS ADMIT/DISCHARGE ACCOUNT NUMBER ADMITTING ENCOUNTER LOCATION SOURCE CLASS 09/19/2018/09/19/19 [id number] Emergency [place] Ja[place] [address] [facility] ding:ED Repository 08/14/2018/08/20/20 [id number] [place]ement[place], Inpatient [place] Ja[place]elin 18 Shakira Encounter [facility] ding:OW8Gwla Repository : AF672Tlc: 1 08/14/2018 [id number] [place], Ambulatory [facility]: [place]elin Shakira BMS.[facility] Repository 08/14/2018 [id number] [place], Ambulatory [facility]: [place]elin Shakira BMS.[facility] Repository 08/14/2018 [id number] [place], Ambulatory [facility]: [place]ira BMS.[facility] Repository 08/14/2018 [id number] [place]i, Ambulatory [facility]Building: [place]quelin [place]ira BMS.[facility] Repository 08/14/2018 [id number] [place], Ambulatory [facility]: [place]ira BMS.[facility] Repository 08/14/2018 [id number] Sementi, Ambulatory [facility]Building: [place]elin [place]akira BMS.[facility] Repository 08/14/2018 [id number] [place], Ambulatory [facility]: [place] BMS.[facility] Repository 08/14/2018 [id number] [place]ementi, Ambulatory [facility]MSBuilding: [place]elin Shakira BMS.[facility] Repository 08/14/2018 [id number] [place], Ambulatory [facility]: [place] BMS.[facility] Repository 08/14/2018 [id number] Sementi, Ambulatory [facility]MSBuilding: Jaquelin Shakira BMS..[facility] Repository 08/14/2018 [id number] Sementi, Ambulatory [facility]Building: Jaquelin Shakira BMS.[facility] Repository 08/14/2018 [id number] [place]i, Ambulatory [facility]: [place]ira BMS.[facility] Hospital Repository 08/14/2018/08/20/20 [id number] Ambulatory BMSBuilding: Jaquelin 18 [facility] Hospital Repository 08/12/2018 [id number] Ambulatory [facility] ding:LABSPEC Repository 07/04/2018/07/04/20 [id number] Emergency [place] ding:ED Repository 06/25/2018/06/25/20 [id number] Emergency [place] ding:ED Repository 06/25/2018 [id number] Ambulatory [facility] ding:CT Repository 06/14/2018 [id number] Ambulatory [facility] ding:MTLAB Repository 05/07/2018 [id number] Ambulatory [facility] ding:MTRAD Repository 05/07/2018 [id number] Ambulatory [facility] ding:MTRAD Repository 02/24/2018 [id number] Ambulatory [facility] ding:CVS Repository 01/27/2018 [id number] Ambulatory [facility]: [place] [facility]MS.[facility] Repository 01/18/2018 [id number] Ambulatory [facility] Repository 01/11/2018 [id number] Ambulatory [facility] ding:LAB Repository 10/22/2017 [id number] Ambulatory [facility] ding:LABSPEC Repository PAYERS PAYERS ENCOUNTER GUARANTOR PAYER SUBSCRIBER SOURCE 09/19/2018 OLGA Primary OLGA [place] [id number] NOLD Insurance:HUMANA [place] [id number] Hospital [address]Vns: (330) Number: Repository [phone] HP [id number] Date:8490-21-55SP [address] [place] [address]QN: 09/19/2018 Secondary NOT GIVENUNK [place] Insurance:SELF PAY [facility] Number: Effective Repository Date:2018-09-19 08/14/2018 OLGA Primary OLGA [place] [id number] NOLD Insurance:HUMANA G[place]OB: [place] PPOPolicy [id number] [address]Yls: (330) Number: Repository [phone] () [id number] Date:8203-46-65LZ [address]46[address]WP: 08/14/2018 Secondary NOT GIVENUNK [place] Insurance:SELF PAY [facility] Number: Effective Repository Date:2018-08-14 08/14/2018 OLGA Primary OLGA [place] [id number] N[place] Insurance:HUMANA [place]OB: [place] PPOPolicy [id number] [address]Lsa: (330) Number: Repository [phone] () [id number] Date:3159-18-69VM [address]46[address]WP: 08/14/2018 Secondary NOT GIVENUNK [place] Insurance:SELF PAY [facility] Number: Effective Repository Date:2018-08-14 08/14/2018 OLGA Primary OLGA [place] [id number] N[place] Insurance:HUMANA [place]OB: [place] PPOPolicy [id number] [place] [address]Hhp: (330) Number: Repository [phone] () [id number] Date:1524-38-90ZQ[address] [address]LT: 08/14/2018 Secondary NOT GIVENUNK Ja[place] Insurance:SELF PAY [facility] Number: Effective Repository Date:2018-08-14 08/14/2018 OLGA Primary OLGA [place] [id number] NOLD Insurance:HUMANA [place]OB: [place] PPOPolicy [id number] [place] [address]Ojf: (330) Number: Repository [phone] () [id number] Date:6603-31-74YS [address] [address]SS: 08/14/2018 Secondary NOT GIVENUNK [place] Insurance:SELF PAY [facility] Number: Effective Repository Date:2018-08-14 08/14/2018 OLGA Primary OLGA [place] [id number] NOLD Insurance:HUMANA [place]OB: [place] PPOPolicy [id number] [address]Ngc: (330) Number: Repository [phone] () [id number] Date:5333-17-50UY [address] [address]CK: 08/14/2018 Secondary NOT GIVENUNK [place] Insurance:SELF PAY [facility] Number: Effective Repository Date:2018-08-14 08/14/2018 OLGA Primary OLGA [place] [id number] NOLD Insurance:HUMANA [place]OB: [place] PPOPolicy [id number] [address]Pfn: (330) Number: Repository [phone] () [id number] Date:0138-91-85ZX [address] [address]JZ: 08/14/2018 Secondary NOT GIVENUNK [place] Insurance:SELF PAY [facility] Number: Effective Repository Date:2018-08-14 08/14/2018 OLGA Primary OLGA [place] [id number] NOLD Insurance:HUMANA [place]OB: [place] PPOPolicy [id number] [address]Wxw: (330) Number: Repository [phone] () [id number] Date:1378-83-15OM [address] [address]AU: 08/14/2018 Secondary NOT GIVENUNK [place] Insurance:SELF PAY [facility] Number: Effective Repository Date:2018-08-14 08/14/2018 OLGA Primary OLGA [place] [id number] NOLD Insurance:HUMANA [place]OB: [place] PPOPolicy [id number] [address]Wpi: (330) Number: Repository [phone] () [id number] Date:0195-27-85ZW [address] [address]NH: 08/14/2018 Secondary NOT GIVENUNK [place] Insurance:SELF PAY [facility] Number: Effective Repository Date:2018-08-14 08/14/2018 OLGA Primary OLGA [place] [id number] NOLD Insurance:HUMANA G[place]OB: [place]icy [id number] [address]Tel: (330) Number: Repository [phone] () [id number] Date:7380-76-26BX [place] [address]WP: 08/14/2018 Secondary NOT GIVENUNK [place] Insurance:SELF PAY [facility] Number: Effective Repository Date:2018-08-14 08/14/2018 OLGA Primary OLGA Ja[place] [id number] N[place] Insurance:HUMANA [place]OB: [place] [id number] [id number]: (330) Number: Repository [phone] () [id number] Date:6472-41-33OW [place] [address]WP: 08/14/2018 Secondary NOT GIVENUNK [place] Insurance:SELF PAY [facility] Number: Effective Repository Date:2018-08-14 08/14/2018 OLGA Primary OLGA [place] [id number] NOLD Insurance:HUMANA GAD[place]ENDOB: [place] PPOP[place] [id number] [address]Chj: (330) Number: Repository [phone] () [id number] Date:0970-45-89[place] [address]WP: 08/14/2018 Secondary NOT GIVENUNK [place] Insurance:SELF PAY [facility] Number: Effective Repository Date:2018-08-14 08/14/2018 OLGA Primary OLGA [place] [id number] N[place] Insurance:HUMANA GAD[place]ENDOB: [place] PPOP[place]icy [id number] [address]Vhc: (330) Number: Repository [phone] () [id number] Date:9885-07-54WC [address] [address]XK: 08/14/2018 Secondary NOT GIVENUNK [place] Insurance:SELF PAY [facility] Number: Effective Repository Date:2018-08-14 08/14/2018 OLGA Primary OLGA Ja[place] [id number] N[place] Insurance:HUMANA [place]AD[place]OB: [place] PPOP[place] [id number] [address]Bco: (330) Number: Repository [phone] () [id number] Date:6883-64-09QI[address] [address]FX: 08/14/2018 Secondary NOT GIVENUNK [place] Insurance:SELF PAY [facility] Number: Effective Repository Date:2018-08-14 08/14/2018 OLGA Primary OLGA [place] [id number] N[place] Insurance:HUMANA [place]AD[place]OB: [place] [id number] [address]Qqz: (330) Number: Repository [phone] () [id number] Date:8184-32-86WP [address] [address]FD: 08/14/2018 Secondary NOT GIVENUNK Ja[place] Insurance:SELF PAY [facility] Number: Effective Repository Date:2018-08-14 08/12/2018 OLGA Primary OLGA [place] [id number] NOLD Insurance:HUMANA GAD[place]ENDOB: [place] PP[place] [id number] [address]Nou: (330) Number: Repository [phone] () [id number] Date:2994-82-32OT [place] [address]WP: 08/12/2018 Secondary NOT GIVENUNK [place] Insurance:SELF PAY [facility] Number: Effective Repository Date:2018-08-12 07/04/2018 OLGA Primary OLGA [place] [id number] NOLD Insurance:HUMANA GADSDENDOB: [place] [id number] [facility] [address]Oya: (330) Number: Repository [phone] () [id number] Date:7859-61-59GU [address]46[address]WP: 07/04/2018 Secondary NOT GIVENUNK [place] Insurance:SELF PAY [facility] Number: Effective Repository Date:2018-07-04 06/25/2018 OLGA Primary OLGA [place] [id number] NOLD Insurance:HUMANA GAD[place]ENDOB: [place] [id number] [place] [address]Cwr: (330) Number: Repository [phone] () [id number] Date:3779-76-28CJ [address] [address]DC: 06/25/2018 Secondary NOT GIVENUNK [place] Insurance:SELF PAY [facility] Number: Effective Repository Date:2018-06-25 06/25/2018 OLGA Primary OLGA [place] [id number] NOLD Insurance:HUMANA GADSDENDOB: [facility] [place] PPOP[place] [id number] [place] [address]Zxz: (330) Number: Repository [phone] () [id number] Date:6566-48-87ES [address] [address]ES: 06/25/2018 Secondary NOT GIVENUNK [place] Insurance:SELF PAY [facility] Number: Effective Repository Date:2018-06-17 06/14/2018 Olga Primary Olga [place] [id number] Nold Insurance:HUMANA GadsdenDOB: [place] PPOPolicy [id number] [address]Pve: (330) Number: Repository [phone] () [id number] Date:1556-38-71XJ[address]46[address]WP: 06/14/2018 Secondary NOT GIVENUNK [place] Insurance:SELF PAY [facility] Number: Effective Repository Date:2018-06-14 05/07/2018 Olga Primary Olga Ja[place] [id number] [place] Insurance:HUMANA GadsdenDOB: [place] PPOP[place] [id number] [place] [id number]: (330) Number: Repository [phone] () [id number] Date:7857-95-82ZCTIFFANY VILLE [address]WP: 05/07/2018 Secondary NOT GIVENUNK [place] Insurance:SELF PAY [facility] Number: Effective Repository Date:2018-05-07 05/07/2018 Olga Primary Olga [place] [id number] [place] Insurance:HUMANA GadsdenDOB: [place] [id number] [place] [id number]: (330) Number: Repository [phone] () [id number] Date:6608-59-75BP [address]4601WP: 05/07/2018 Secondary NOT GIVENUNK [place] Insurance:SELF PAY [facility] Number: Effective Repository Date:2018-05-07 02/24/2018 Olga Primary Olga Jaqu[place] [id number] [place] Insurance:HUMANA GadsdenDOB: [place] PPOP[place] [id number] [address]Upm: (330) Number: Repository [phone] () [id number] Date:4218-73-85[place] [address]WP: 02/24/2018 Secondary NOT GIVENUNK [place] Insurance:SELF PAY [facility] Number: Effective Repository Date:2018-01-26 01/27/2018 Olga Primary Olga Jaquelin [id number] [place] Insurance:HUMANA GadsdenDOB: [place] [id number] Hospital [address]Mmy: (330) Number: Repository [phone] () [id number] Date:3481-45-13IO [address] [address]AR: 01/27/2018 Secondary NOT GIVENUNK [place] Insurance:SELF PAY [facility] Number: Effective Repository Date:2018-01-12 01/18/2018 olga [facility] gadsdenDOB: Insurance:HumanaPolic gadsdenDOB: System y Number: Effective [id number] Repository Nold [facility], Date: [facility]Xoo: () 01/11/2018 Olga Primary Olga [place] [id number] Nold Insurance:HUMANA GadsdenDOB: [place]OP[place] [id number] Hospital [address]Lbx: (330) Number: Repository [phone] () [id number] Date:5895-68-27PT [address]4601WP: 01/11/2018 Secondary NOT GIVENUNK [place] Insurance:SELF PAY [facility] Number: Effective Repository Date:2018-01-11 10/22/2017 Olga Primary Olga [place] [id number] [place] Insurance:HUMANA GadsdenDOB: [place]OP[place] [id number] Hospital [address]Fva: (330) Number: Repository [phone] () [id number] Date:4332-44-83AXBRITTANY [place] [address]WP: 10/22/2017 Secondary NOT GIVENUNK [place] Insurance:SELF PAY [facility] Number: Effective Repository Date:2017-10-22
== END 2018-09-19 11:29 | disposition home or self-care (01) ==
PROVIDERS: Emergency Provider Emergency Medicine; Family Provider Family Medicine; PCP Family Medicine
DX: T83.098A Other mechanical complication of other urinary catheter, initial encounter (principal); R30.0 Dysuria
CPT/HCPCS: 51702; 81001; 87077; 87086; 87088; 87186; 99285

== ENCOUNTER 2018-10-06 06:33 | Emergency (ER) | payer MEDICARE, SELFPAY ==
[2018-10-06 06:34] VITALS: BP 204/94; PULSE 105; RESP 16; TEMP 36.6; O2SAT 97; BMI 28.3
--- NOTE | 2018-10-06 08:20 | ED.VISSUMM ---
- ER Visit Summary Date of Service: 10/06/18 Chief Complaint: [Serna catheter not draining] History of Present Illness: The patient is a 73 F [presents to the emergency department complaint of Serna catheter not draining. Patient states that it was draining fine yesterday however this morning she is having a sensation like needing to void and no urine is coming from the catheter. Patient denies any fever or recent illness. Last catheter change was a few weeks ago. Patient's not had any vomiting or diarrhea.] Physical Examination: [HEENT-PERRLA, EOMI. Cranial nerves II through XII grossly intact. TMs clear. Mucous membranes moist. No adenopathy. Cardiovascular-regular rate and rhythm without murmur or ectopy Lungs-clear to auscultation, chest wall stable without crepitus or subcu emphysema Abdomen-normoactive bowel sounds, soft. Patient has tenderness palpation over the suprapubic region with some fullness noted. No rebound, rigidity, or perineal signs. Extremities-intact ?4, normal range of motion, normal pulses, atraumatic] Test Results: [None indicated] Emergency Department Course and Treatment: [Bladder scan obtained showed greater than 900 cc. Patient had a new catheter inserted after the old catheter was removed and immediately obtained over 1800 cc of urine. The urine appeared clear. Patient immediately felt improved.] Treatment Plan: [Follow-up with urologist as needed] Disposition: [Discharged home in stable condition] Impression: [Serna catheter replacement secondary to clogged Serna catheter] This note was generated with [employer] dictation software. It may contain incorrect words, spelling, and punctuation that were not noted in review of the chart prior to signing ED Disposition - Plan for ED Patient: Referrals: Ramone Smiley MD [Primary Care Provider] -
--- NOTE | 2018-10-06 08:22 | ED.DEP ---
ED Disposition - Plan for ED Patient: Instructions: Discharge Instructions: Caring for Your Indwelling Urinary Catheter Referrals: Ramone Smiley MD [Primary Care Provider] - Asha Anguiano MD [STAFF PHYSICIAN] - As Needed
[2018-10-06 08:56] VITALS: BP 150/48; PULSE 72; RESP 15; O2SAT 98
== END 2018-10-06 09:06 | disposition home or self-care (01) ==
PROVIDERS: Emergency Provider Emergency Medicine; Family Provider Family Medicine; PCP Family Medicine
DX: T83.091A Other mechanical complication of indwelling urethral catheter, initial encounter (principal); Z86.718 Personal history of other venous thrombosis and embolism
CPT/HCPCS: 51702; 99283

== ENCOUNTER 2018-10-19 08:02 | Day surgery (SDC) | payer MEDICARE, SELFPAY ==
[2018-10-19] VITALS (7 sets, daily range): BP systolic 95–172; BP diastolic 47–60; PULSE 85–88; RESP 16–18; TEMP 36.4–36.7; O2SAT 92–96; BMI 28.3
[2018-10-19 08:57] LABS: Bedside Glucose 118 mg/dL (70-110)
[2018-10-19] MEDS: Vancomycin IV 1,000 MG/200 ML BAG 200 MG IV (09:57)
--- NOTE | 2018-10-19 10:00 | RAD_ITS ---
STUDY: X-RAY - PELVIS REASON FOR EXAM: Female, 73 years old. InterStim therapy/neurostimulator for bladder control. TECHNIQUE: Fluoroscopic assistance was provided to Dr. Anguiano. One fluoroscopic spot view of the pelvis was obtained. FLUOROSCOPY TIME: 38 seconds. COMPARISON: 2 AP portable views of the abdomen and pelvis August 18, 2018. FINDINGS: There is a non-specific bowel gas pattern. A stimulator lead extends inferiorly from a point outside the field of view due to the mid left pelvic soft tissues. There are stable degenerative changes of the visualized lumbar spine. RAD/Pelvis 1 or 2 Views IMPRESSION: Stimulator lead extending to the mid left pelvic region. Correlation with procedure notes advised. Electronically Signed: Dean Eugene MD at 15:51 EST , Service support ,
--- NOTE | 2018-10-19 10:09 | DCINST_ITS ---
Discharge Diet: No Restrictions Discharge Activity: May Not Shower Call your doctor if your incision/area has: Sudden Increased Bleeding, Increased Pain/ Swelling, Increased Redness, Foul Smelling Discharge, Swelling at the incision site Call your doctor if you observe: Fever of 101 or Higher, Shortness of breath, Chest pain, Calf discomfort, Uncontrolled pain Allergies/Adverse Reactions: Allergies amoxicillin Allergy (Verified 10/12/18 12:27) YEAST INFECTION cephalexin monohydrate [From Keflex] Allergy (Verified 10/12/18 12:27) Rash clopidogrel bisulfate [From Plavix] Allergy (Verified 09/19/18 09:48) Other cloth tap Allergy (Uncoded 10/12/18 12:27) Other Medications to take at Discharge Lisinopril [Zestril] 40 mg PO BID 12/25/14 Aspirin [Aspirin, Baby] 81 mg PO DAILY@0800 01/21/16 Astepro 1 - 2 sprays NASAL BID 01/21/16 Sitagliptin Phosphate [Januvia] 50 mg PO DAILY 01/21/16 budesonide-formoterol HFA 160 mcg-4.5 mcg/actuation aerosol inhaler 2 puff INHALATION BID g 01/12/18 sodium chloride 0.65 % nasal spray aerosol 1 spray INTRANASAL Q2H PRN PRN 01/12/18 Albuterol Inhaler [Ventolin Hfa] 2 puff INHALATION Q4H PRN PRN 08/16/18 Bisacodyl [Dulcolax] 5 mg PO DAILY PRN 08/16/18 Calcium Carbonate 600 mg PO DAILY 08/16/18 Cod Liver Oil 1 tab PO BREAKFAST 08/16/18 Diltiazem HCl [Cardizem LA] 180 mg PO DAILY 08/16/18 Ferrous Gluconate 325 mg PO BID 08/16/18 Lubiprostone [Amitiza] 24 mcg PO BIDCM 08/16/18 Magnesium Oxide [Mag-Ox 400] 400 mg PO BIDCM 08/16/18 Metoprolol Tartrate [Lopressor (beta jefe)] 25 mg PO BID 08/16/18 Multivitamins,Therapeutic [Multivitamin] 1 tablet PO DAILY 08/16/18 Potassium Citrate [Potassium Citrate ER] 5 meq PO BID 08/16/18 Pravastatin Sodium 20 mg PO QHS 08/16/18 Psyllium [Metamucil] 1 packet PO BID 08/16/18 proMETHazine tablet [Phenergan tablet] 12.5 mg PO Q8H PRN PRN 08/16/18 Insulin Detemir [Levemir FlexPen] 25 units SC BID #0 08/20/18 Pantoprazole Sodium [Protonix] 40 mg PO DAILY #30 tablet 08/20/18 Polyethylene Glycol 3350 [Miralax] 17 gm PO BID #60 packet 08/20/18 Sennosides/Docusate Sodium [Senna-Docusate Sodium Tablet] 1 each PO BID #60 tablet 08/20/18 Sucralfate [Carafate] 1 gm PO 1HR_ACHS #120 tablet 08/20/18 Primary Care Physician: Ramone Smiley MD [Primary Care Provider] - Test Results: Test results from this visit will be discussed in further detail at your follow- up appointment, if applicable. Please Follow Up With: Asha Anguiano MD When: this week, call for appt Proposed Discharge Date: 10/19/18
--- NOTE | 2018-10-19 10:11 | OP.PCM_ITS ---
Report of Operation Date of Procedure: 10/19/18 Pre-Operative Diagnosis: urinary retention Post-Operative Diagnosis: same Surgery/Procedure Performed:: Interstim Stage 1 and mccall catheter change. Description of Surgical Findings:: Right sided lead in S3. She has an abnormality to the sacrum, it appears to end at the level where the S4 foramen would normally be. Good response with manuel at leads 1 and 2. Minimal at lead 0, nothing detected at lead 4. Needle replaced several times. Type of Anesthesia:: MAC Special Medications: Vancomycin Estimated Blood Loss (mL): 2-3cc Description of Procedure: She is a 73-year-old female with urinary retention and presented the office for evaluation and treatment. After undergoing urodynamics and cystoscopy, informed consent was obtained and she agreed to proceed with InterStim stage I. Patient was taken to the operating room and placed onto the operating room table in a prone position. It was then determined that her Mccall catheter was logged and not draining. The Mccall catheter was then replaced using sterile technique with a 18 [place] Mccall catheter and approximately 200 cc drained immediately. At this time she was appropriately padded in dependent areas and secured to the table. Anesthesia monitored the head, neck, airway, IV access, vital signs throughout the case. Once anesthesia was appropriately administered, she was prepped and draped in usual sterile fashion. Using fluoroscopic visualization it was then determined that her sacrum was abnormal in appearance and seemed to and at the S4 foramen position. Her sacrum was mapped out using a skin pen. She was infiltrated with lidocaine 1% with epinephrine and a 1: 100,000 ratio. The needle was then used to intubate her S3 foramen receiving good manuel and some toe flexion on the right side. This was tested in multiple different angles. The best angle was chosen and the guidewire was passed. At this time the skin was incised to allow room for the dilator which was then passed without difficulty. The lead was then inserted through the dilator into the S3 foramen. Following multiple different angulations of the lead, the best response was a good manuel on leads I and II with nothing on lead III and very minimal toe on leads 0. The patient's left side was altered so tested and no manuel or toe was able to be achieved. At this time the pocket site was decided upon and was infiltrated with local. An incision was made and the lead was tunneled into position. It was dried and attached into the lead extension using the boot. The lead extension was then brought out into a more cephalad and medial position. The boot was buried into the pocket site which was then closed with 3-0 interrupted followed by 4-0 subcuticular closure. The midline incision was closed using a buried 4-0 subcuticular suture. Dermabond was then used over the skin. At this time the battery etc. was attached and secured to the patient using an OpSite and cloth tape. At this time the patient was moved over onto the other table and it was noticed that her Mccall bag was full. It was then emptied and the patient continued to drain urine for a total of approximately 900 cc. She was then taken to the recovery room in good condition. Grafts/Implants Used: Stage 1 Interstim - Complications None - Admit VTE Documentation VTE Present on Admission: No VTE Mechan Device Prophylaxis: None VTE Pharm Prophylaxis ordered?: No Reason prophylaxis not ordered:: Treatment Not Indicated
== END 2018-10-19 12:46 | disposition home or self-care (01) ==
LOC: SDC 08:04 → AC 08:04
PROVIDERS: Family Provider Family Medicine; PCP Family Medicine; Referring Provider Urology; Visit Provider Urology
PROC: (CPT 51702; principal; 2018-10-19 09:50)
DX: R33.9 Retention of urine, unspecified (principal); N31.9 Neuromuscular dysfunction of bladder, unspecified; N39.3 Stress incontinence (female) (male); K59.04 Chronic idiopathic constipation; E55.9 Vitamin D deficiency, unspecified; E78.00 Pure hypercholesterolemia, unspecified; E04.2 Nontoxic multinodular goiter; K21.9 Gastro-esophageal reflux disease without esophagitis; D64.9 Anemia, unspecified; I12.9 Hypertensive chronic kidney disease with stage 1 through stage 4 chronic kidney disease, or unspecified chronic kidney disease; E11.22 Type 2 diabetes mellitus with diabetic chronic kidney disease; N18.3 Chronic kidney disease, stage 3 (moderate); Z85.3 Personal history of malignant neoplasm of breast; J44.9 Chronic obstructive pulmonary disease, unspecified; J45.909 Unspecified asthma, uncomplicated; Z79.82 Long term (current) use of aspirin; Z79.4 Long term (current) use of insulin; Z79.51 Long term (current) use of inhaled steroids; Z79.899 Other long term (current) drug therapy; Z87.891 Personal history of nicotine dependence
CPT/HCPCS: 00630; 51702; 64581; 72170; 76000; 82962; J7120; C1778; J2405

== ENCOUNTER → 2018-10-22 09:45 | Outpatient (CLI) | payer MEDICARE, SELFPAY ==
[2018-10-19 08:24] VITALS: BMI 28.3
[2018-10-22 12:16] LABS: Absolute Lymphocyte Count 2.91 X10^3/ul (0.83-4.51); Absolute Neutrophil Count 3.2 X10^3/uL (2.0-7.7); Basophil# 0.02 X10^3/uL; Basophil% 0.3 % (0-1); Eosinophil# 0.35 X10^3/uL; Hematocrit 38.1 % (37-47); Hemoglobin 11.7 g/dl (12.0-15.0); Lymphocyte # 2.91 X10^3/ul (4.0); Lymphocyte % 41.4 % (19-41); Mean Corp Hgb Conc 30.7 g/gl (32-36); Mean Corpuscular Hgb 25.2 pg (27.0-32.0); Mean Corpuscular Volume 82.1 fL (81-99); Mean Platelet Vol. 9.8 fl (6.2-12.0); Monocyte# 0.52 X10^3/uL; Monocyte% 7.4 % (0-10); Neutrophil # 3.22 X10^3/uL (2.7-7.7); Neutrophil % 45.8 % (47-70); Platelet Count 245 K/mm3 (150-450); RBC Distribution Width SD 61.2 fl (35.1-43.9); Red Blood Count 4.64 M/mm3 (4.2-5.4)
[2018-10-22 12:17] LABS: Differential Indicated SCAN CRITERIA MET; POSITIVE COUNT NO; POSITIVE DIFFERENTIAL NO; POSITIVE MORPHOLOGY YES
[2018-10-22 12:33] LABS: ALB/GLOB Ratio 0.7 RATIO (0.9-2.4); AST(SGOT) 25 U/L (15-37); Alanine Aminotransfer ALT/SGPT 32 U/L (13-56); Albumin, Serum 3.4 g/dL (3.2-5.0); Alkaline Phosphatase 96 U/L (45-117); Anion Gap 7 (5-15); BUN 15 mg/dL (7-18); BUN/Creat Ratio 15.7 RATIO (10-20); Calcium,Total 10.4 mg/dL (8.5-10.1); Chloride 102 mmol/L (98-107); Creatinine, Serum 0.96 mg/dL (0.55-1.02); EST Glomerular Filtration Rate 61 mL/min (>60); Est Glom Filt Rate - Afr Amer 73 mL/min (>60); Ferritin 160 ng/mL (8-252); Globulin 4.8 g/dL (2.2-4.2); Glucose 145 mg/dL (74-106); Potassium 4.2 mmol/L (3.5-5.1); Protein, Total 8.2 g/dL (6.4-8.2); Sodium Level 134 mmol/L (136-145)
[2018-10-22 12:37] LABS: Anisocytosis 1+; Platelet Estimate ADEQUATE (ADEQ); Red Cell Morphology N CHROM NORMAL (NORM C&C)
== END ==
PROVIDERS: Family Provider Family Medicine; PCP Family Medicine; Referring Provider Family Medicine; Visit Provider Family Medicine
DX: Z01.818 Encounter for other preprocedural examination (principal); D64.9 Anemia, unspecified
CPT/HCPCS: 36415; 80053; 82728; 85025

== ENCOUNTER 2018-11-19 08:40 | Emergency (ER) | payer MEDICARE, SELFPAY ==
[2018-10-19 08:24] VITALS: BMI 28.3
[2018-11-19 08:42] VITALS: BP 163/65; PULSE 79; RESP 16; TEMP 36.3; O2SAT 97; BMI 30.2
--- NOTE | 2018-11-19 08:57 | ED.DCSUM_ITS ---
- ER Visit Summary Date of Service: 11/19/18 Chief Complaint: Serna dysfunction History of Present Illness: The patient is a 73 F decreased urine output from Serna since 8 PM, states decreased flow and feels some bloating suprapubic. This is placed in July with intermittent changes. She has urine retention issue, states followed by Dr. Anguiano. She does have a bladder stimulator has plans of being changed. States she started on antibiotics approximately week ago however does not recall the name. No fevers or back pain. No nausea or vomiting. Dr. Anguiano did call in prior to patient's arrival and requested Serna exchange and for outpatient follow-up. Physical Examination: General: Alert and oriented ?3, no acute distress HEENT: Normocephalic, atraumatic. Moist mucosa membranes Neck: supple, nontender. Cardiovascular: Regular rate and rhythm, no murmurs Respiratory: Normal breath sounds, symmetric, no distress Abdomen: Soft, nontender, nondistended : Serna catheter yellow urine with approximately 100 cc urine. Extremities: Nontender, no edema, pulses intact ?4 Neuro: no focal neurological deficits. Test Results: Urine culture sent Emergency Department Course and Treatment: Serna exchanged by nursing, urine culture sent. Urine output was 1600 cc. Symptoms improved. Reevaluation patient reports she may be on Bactrim currently. Discussed culture is pending, call patient if any changes or infections are found. Signs and symptoms discussed return. Outpatient follow-up. Treatment Plan: [] Disposition: Discharge Impression: Serna catheter dysfunction This note was generated with PENRITH dictation software. It may contain incorrect words, spelling, and punctuation that were not noted in review of the chart prior to signing ED Disposition - Plan for ED Patient: Disposition: Home or Assisted Living Diagnosis: Serna catheter problem Instructions: ED Catheter Care Serna Referrals: Ramone Smiley MD [Primary Care Provider] - Ahsa Anguiano MD [STAFF PHYSICIAN] - 3-5 Days Additional Instructions: Urine culture sent
== END 2018-11-19 09:45 | disposition home or self-care (01) ==
LOC: ED 09:18
PROVIDERS: Emergency Provider Emergency Medicine; Family Provider Family Medicine; PCP Family Medicine
DX: T83.018A Breakdown (mechanical) of other urinary catheter, initial encounter (principal); R33.9 Retention of urine, unspecified
CPT/HCPCS: 51702; 87077; 87086; 87088; 87186; 99283

== ENCOUNTER 2018-11-22 11:10 | Day surgery (SDC) | payer MEDICARE, SELFPAY ==
[2018-11-22] VITALS (7 sets, daily range): BP systolic 88–132; BP diastolic 46–57; PULSE 79–85; RESP 16–18; TEMP 36.9–37.2; O2SAT 94–99; BMI 29.2
[2018-11-22 11:40] LABS: Bedside Glucose 86 mg/dL (70-110)
--- NOTE | 2018-11-22 14:53 | PCM.OPRPT ---
Problem List (1) Neurogenic bladder Status: Acute (2) Urine retention Status: Chronic Report of Operation Date of Procedure: 11/22/18 Pre-Operative Diagnosis: urinary retention, neurogenic bladder Post-Operative Diagnosis: same Surgery/Procedure Performed:: Interstim Stage 2 Description of Surgical Findings:: no sign of infection, IPG placed without an issue. Type of Anesthesia:: MAC Special Medications: Vancomycin Estimated Blood Loss (mL): 3cc Description of Procedure: The patient is a 73-year-old -[place] female who passed a stage I InterStim and now presents for implantation of her IPG. Informed consent was obtained. Patient was taken to the operating room and placed in a prone position on the operating room table. All dependent portions of her body were appropriately padded and she was secured to the table. The previous dressing was removed carefully. The wire was cut and a hemostat was attached. Anesthesia monitored the head, neck, airway, IV access and vital signs throughout the case. Once anesthesia was appropriately administered the patient was prepped and draped in usual sterile fashion. Approximately 10 cc of lidocaine was injected carefully surrounding the incision site. This was then opened using hemostats and Metzenbaums. The lead was identified and the boot was brought into the operative field. There was no evidence of infection. The sutures were removed and the torque wrench was used to remove the lead from the lead extension. The pocket was enlarged and the Bovie was used for hemostatic control. At this time the lead was dried and inserted all the way into the IPG and screwed into position using the torque wrench. The IPG was placed into the pocket and there were no impedances identified on testing. The incision was closed in 2 layers with 3-0 interrupted Vicryl followed by 4-0 subcuticular closure. Dermabond was placed. The patient was awakened and taken to the recovery room in good condition. There were no complications. Grafts/Implants Used: Interstim IPG - Complications None - Admit VTE Documentation VTE Present on Admission: Yes VTE Mechan Device Prophylaxis: SCD's VTE Pharm Prophylaxis ordered?: No Reason prophylaxis not ordered:: Treatment Not Indicated
--- NOTE | 2018-11-22 14:59 | DCINST_ITS ---
Discharge Diet: No Restrictions Discharge Activity: May not drive while taking narcotic pain medications., May Shower Call your doctor if your incision/area has: Increased Pain/ Swelling, Increased Redness, Foul Smelling Discharge, Swelling at the incision site Call your doctor if you observe: Fever of 101 or Higher, Inability to have a bowel movement Allergies/Adverse Reactions: Allergies amoxicillin Allergy (Verified 11/22/18 11:40) YEAST INFECTION cephalexin monohydrate [From Keflex] Allergy (Verified 11/22/18 11:40) Rash clopidogrel bisulfate [From Plavix] Allergy (Verified 11/22/18 11:40) Other cloth tap Allergy (Uncoded 11/22/18 11:40) Other Medications to take at Discharge Lisinopril [Zestril] 40 mg PO BID 12/25/14 Aspirin [Aspirin, Baby] 81 mg PO DAILY@0800 01/21/16 Astepro 1 - 2 sprays NASAL BID 01/21/16 Sitagliptin Phosphate [Januvia] 50 mg PO DAILY 01/21/16 budesonide-formoterol HFA 160 mcg-4.5 mcg/actuation aerosol inhaler 2 puff INHALATION BID g 01/12/18 sodium chloride 0.65 % nasal spray aerosol 1 spray INTRANASAL Q2H PRN PRN 01/12/18 Albuterol Inhaler [Ventolin Hfa] 2 puff INHALATION Q4H PRN PRN 08/16/18 Bisacodyl [Dulcolax] 5 mg PO DAILY PRN 08/16/18 Calcium Carbonate 600 mg PO DAILY 08/16/18 Cod Liver Oil 1 tab PO BREAKFAST 08/16/18 Diltiazem HCl [Cardizem LA] 180 mg PO DAILY 08/16/18 Ferrous Gluconate 325 mg PO BID 08/16/18 Lubiprostone [Amitiza] 24 mcg PO BIDCM 08/16/18 Magnesium Oxide [Mag-Ox 400] 400 mg PO BIDCM 08/16/18 Metoprolol Tartrate [Lopressor (beta jefe)] 25 mg PO BID 08/16/18 Multivitamins,Therapeutic [Multivitamin] 1 tablet PO DAILY 08/16/18 Potassium Citrate [Potassium Citrate ER] 5 meq PO BID 08/16/18 Pravastatin Sodium 20 mg PO QHS 08/16/18 Psyllium [Metamucil] 1 packet PO BID 08/16/18 proMETHazine tablet [Phenergan tablet] 12.5 mg PO Q8H PRN PRN 08/16/18 Insulin Detemir [Levemir FlexPen] 25 units SC BID #0 08/20/18 Pantoprazole Sodium [Protonix] 40 mg PO DAILY #30 tablet 08/20/18 Polyethylene Glycol 3350 [Miralax] 17 gm PO BID #60 packet 08/20/18 Sennosides/Docusate Sodium [Senna-Docusate Sodium Tablet] 1 each PO BID #60 tablet 08/20/18 Sucralfate [Carafate] 1 gm PO 1HR_ACHS #120 tablet 08/20/18 Hydrocodone Bitart/Apap 5-325 [[place] 5MG-325MG] 1 tab PO Q4H PRN PRN 7 Days #10 tab 11/22/18 Smz/Tmp Ds [Bactrim Ds] 1 tab PO BID 3 Days #6 tab 11/22/18 The following prescriptions were given: Hydrocodone Bitart/Apap 5-325 [[place] 5MG-325MG] 1 tab PO Q4H PRN PRN 7 Days #10 tab PRN Reason: Pain Smz/Tmp Ds [Bactrim Ds] 1 tab PO BID 3 Days #6 tab Primary Care Physician: Ramone Smiley MD [Primary Care Provider] - Test Results: Test results from this visit will be discussed in further detail at your follow- up appointment, if applicable. Please Follow Up With: Asha Anguiano MD When: 1 week, call for appt Proposed Discharge Date: 11/22/18
== END 2018-11-22 16:06 | disposition home or self-care (01) ==
LOC: SDC 11:14 → AC 11:14
PROVIDERS: Family Provider Family Medicine; PCP Family Medicine; Referring Provider Urology; Visit Provider Urology
PROC: (CPT 64590; principal; 2018-11-22 13:10)
DX: N31.9 Neuromuscular dysfunction of bladder, unspecified (principal); N39.3 Stress incontinence (female) (male); R33.9 Retention of urine, unspecified; E55.9 Vitamin D deficiency, unspecified; I73.9 Peripheral vascular disease, unspecified; E78.00 Pure hypercholesterolemia, unspecified; E04.2 Nontoxic multinodular goiter; K21.9 Gastro-esophageal reflux disease without esophagitis; D64.9 Anemia, unspecified; I12.9 Hypertensive chronic kidney disease with stage 1 through stage 4 chronic kidney disease, or unspecified chronic kidney disease; E11.22 Type 2 diabetes mellitus with diabetic chronic kidney disease; N18.3 Chronic kidney disease, stage 3 (moderate); J44.9 Chronic obstructive pulmonary disease, unspecified; Z85.3 Personal history of malignant neoplasm of breast; Z86.718 Personal history of other venous thrombosis and embolism; Z98.2 Presence of cerebrospinal fluid drainage device; Z87.891 Personal history of nicotine dependence; Z79.02 Long term (current) use of antithrombotics/antiplatelets; Z79.4 Long term (current) use of insulin; Z79.51 Long term (current) use of inhaled steroids; Z79.899 Other long term (current) drug therapy
CPT/HCPCS: 00300; 64590; 82962; J7120; C1767; J2405

== ENCOUNTER → 2019-04-19 | Outpatient (CLI) | payer MEDICARE, SELFPAY ==
[2018-11-22 11:43] VITALS: BMI 29.2
[2019-04-19 12:11] LABS: Absolute Lymphocyte Count 2.73 X10^3/uL (0.83-4.51); Absolute Neutrophil Count 5.1 X10^3/uL (2.0-7.7); Basophil# 0.04 X10^3/uL; Basophil% 0.5 % (0-1); Eosinophil# 0.25 X10^3/uL; Eosinophils% 2.9 % (0-5); Hematocrit 37.3 % (37-47); Hemoglobin 11.9 g/dL (12.0-15.0); Lymphocyte # 2.73 X10^3/ul (4.0); Lymphocyte % 31.7 % (19-41); Mean Corp Hgb Conc 31.9 g/dL (32-36); Mean Corpuscular Hgb 27.2 pg (27.0-32.0); Mean Corpuscular Volume 85.2 fL (81-99); Mean Platelet Vol. 10.4 fl (6.2-12.0); Monocyte# 0.47 X10^3/uL; Monocyte% 5.5 % (0-10); NRBC Flagged by Analyzer 0 % (0-5); Neutrophil # 5.09 X10^3/uL (2.7-7.7); Neutrophil % 59.1 % (47-70); Platelet Count 240 K/mm3 (150-450); RBC Distribution Width CV 13.4 % (11.6-14.6); RBC Distribution Width SD 41.5 fl (35.1-43.9); RET-HE 32.5 pg (30-35); Red Blood Count 4.38 M/mm3 (4.2-5.4); Reticulocyte Count 1.64 % (0.5-1.5); White Blood Count 8.6 K/mm3 (4.4-11.0)
[2019-04-19 12:51] LABS: ALB/GLOB Ratio 0.6 RATIO (0.9-2.4); AST(SGOT) 28 U/L (15-37); Alanine Aminotransfer ALT/SGPT 34 U/L (13-56); Albumin, Serum 3.2 g/dL (3.2-5.0); Alkaline Phosphatase 121 U/L (45-117); Anion Gap 6 (5-15); BUN 10 mg/dL (7-18); Calcium,Total 10.8 mg/dL (8.5-10.1); Chloride 100 mmol/L (98-107); EST Glomerular Filtration Rate 57 mL/min (>60); Est Glom Filt Rate - Afr Amer 70 mL/min (>60); Ferritin 107 ng/mL (8-252); Globulin 5.1 g/dL (2.2-4.2); Glucose 195 mg/dL (74-106); Iron 44 ug/dL (50-170); Iron Binding Capacity,Total 296 ug/dL (250-450); Potassium 4.9 mmol/L (3.5-5.1); Protein, Total 8.3 g/dL (6.4-8.2); Sodium Level 136 mmol/L (136-145)
== END | disposition home or self-care (01) ==
LOC: MTLAB 11:16
PROVIDERS: Family Provider Family Medicine; PCP Family Medicine; Referring Provider Family Medicine; Visit Provider Family Medicine
DX: D64.9 Anemia, unspecified (principal); E11.49 Type 2 diabetes mellitus with other diabetic neurological complication
CPT/HCPCS: 36415; 80053; 82728; 83540; 83550; 85025; 85045

== ENCOUNTER → 2019-04-19 | Outpatient (CLI) | payer MEDICARE, SELFPAY ==
[2018-11-22 11:43] VITALS: BMI 29.2
--- NOTE | 2019-04-19 10:34 | BI_ITS ---
MAMMOGRAPHY - BILATERAL SCREENING 3-D TOMOSYNTHESIS REASON FOR EXAM: Female, 74 years old. Bilateral Screening 3-D tomosynthesis PERTINENT HISTORY: Personal history of breast cancer, and also with patient's daughter and sister, and 2 nieces with breast cancer.. TECHNIQUE: 2-D mammograms and 3-D Tomosynthesis of the breast (s) were performed. CAD was performed. COMPARISON: 01/08/2017, 03/30/2015 FINDINGS: The breast composition is heterogeneously dense that can obscure small breast masses. Prior left lumpectomy. A new focus of probable intramammary lymph node is visualized on the right side along the upper inner quadrant measuring 9 mm with a central nidus of lucency. Further assessment with spot compression mammogram and also with sonogram is recommended as follow-up. Scattered benign calcifications are seen. No other focus of dense spiculated masses or suspicious microcalcifications are identified. Stable left architectural distortion is identified to the prior lumpectomy. There is no skin thickening or retraction. There has been no other focus of significant change since the prior study. BI/SCREEN MAMM (CAD) W/CEASAR BILAT IMPRESSION: A new focus of probable intramammary lymph node is visualized on the right side along the upper inner quadrant measuring 9 mm with a central nidus of lucency. Further assessment with spot compression mammogram and also with sonogram is recommended as follow-up. ASSESSMENT CATEGORY: BIRADS Category 0: Incomplete. Need additional imaging evaluation as above. A letter regarding these results will be sent to the patient by the facility within 30 days. FOLLOW UP RECOMMENDATION: Additional imaging recommended as above. (E) Approximately 10% of breast cancers are not detected by mammography. A normal mammogram should not delay biopsy of a clinically suspicious abnormality. Electronically Signed: Fei Mccoy MD at 16:29 EDT Tel [phone], Service support ,
== END | disposition home or self-care (01) ==
LOC: OPBI 10:32
PROVIDERS: Family Provider Family Medicine; PCP Family Medicine; Referring Provider Family Medicine; Visit Provider Family Medicine
DX: Z12.31 Encounter for screening mammogram for malignant neoplasm of breast (principal)
CPT/HCPCS: 77063; 77067

== ENCOUNTER → 2019-04-21 | Outpatient (CLI) | payer MEDICARE, SELFPAY ==
[2018-11-22 11:43] VITALS: BMI 29.2
--- NOTE | 2019-04-21 14:05 | BI_ITS ---
MAMMOGRAPHY - UNILATERAL DIAGNOSTIC: RIGHT BREAST REASON FOR EXAM: Female, 74 years old. Mammographic density on the right TECHNIQUE: Digital examination. Spot compression views were performed. CAD: CAD was performed on this study. Mediolateral oblique (MLO) and craniocaudad (CC) views of right breast were obtained. COMPARISON: 04/19/2019 mammogram FINDINGS: Focal prominence visualized on the mammogram persists upon spot compression, with features suggestive of an intramammary lymph node. This is not well visualized on the correlative sonogram. BI/DIAG MAMM W/CAD, UNILAT IMPRESSION: Mammographic density persists upon spot compression, suggestive of an intra-mammary lymph node, which is sonographically occult. ASSESSMENT CATEGORY: BIRADS Category 3: Probably Benign - Short-Interval Follow-up Suggested. A letter regarding these results will be sent to the patient by the facility within 30 days. Short-term follow-up in 6 months with repeated mammogram on the right is recommended. FOLLOW UP RECOMMENDATION: Short-term follow-up in 6 months with repeated mammogram on the right is recommended. Approximately 10% of breast cancers are not detected by mammography. A normal mammogram should not delay biopsy of a clinically suspicious abnormality. Electronically Signed: Fei Mccoy MD at 15:13 EDT Tel [phone], Service support ,
--- NOTE | 2019-04-21 14:06 | US_ITS ---
STUDY: ULTRASOUND BREAST - RIGHT REASON FOR EXAM: Female, 74 years old. Mammographic prominence TECHNIQUE: Axial and longitudinal images of the RIGHT breast were performed with a high resolution ultrasound transducer. COMPARISON: 04/19/2019. FINDINGS: RIGHT Breast: Focal prominence visualized on the mammogram persists upon spot compression, with features suggestive of an intramammary lymph node. This is not well visualized on the correlative sonogram. US/Breast Limited Unilateral IMPRESSION: Mammographic density persists upon spot compression, suggestive of an intra-mammary lymph node, which is sonographically occult. ASSESSMENT CATEGORY: BIRADS Category 3: Probably Benign - Short-Interval Follow-up Suggested. A letter regarding these results will be sent to the patient by the facility within 30 days. Follow up: Short-term follow-up in 6 months with repeated mammogram on the right is recommended. Electronically Signed: Fei Mccoy MD at 15:12 EDT Tel [phone], Service support ,
== END | disposition home or self-care (01) ==
LOC: OPBI 14:03
PROVIDERS: Family Provider Family Medicine; PCP Family Medicine; Referring Provider Family Medicine; Visit Provider Family Medicine
DX: R92.8 Other abnormal and inconclusive findings on diagnostic imaging of breast (principal)
CPT/HCPCS: 76642; 77065

== ENCOUNTER 2019-06-29 08:30 | Outpatient (RCR) | payer MEDICARE, SELFPAY ==
[2018-11-22 11:43] VITALS: BMI 29.2
== END 2019-06-30 23:59 ==
LOC: DC 08:30
PROVIDERS: Family Provider Family Medicine; PCP Family Medicine; Visit Provider Family Medicine
DX: Z71.3 Dietary counseling and surveillance (principal); E11.49 Type 2 diabetes mellitus with other diabetic neurological complication
CPT/HCPCS: 97802; G0108

== ENCOUNTER → 2019-07-01 | Outpatient (CLI) | payer MEDICARE, SELFPAY ==
[2018-11-22 11:43] VITALS: BMI 29.2
[2019-07-01 12:42] LABS: Absolute Lymphocyte Count 2.24 X10^3/uL (0.83-4.51); Basophil# 0.03 X10^3/uL; Basophil% 0.4 % (0-1); Eosinophil# 0.15 X10^3/uL; Eosinophils% 1.9 % (0-5); Hematocrit 34.7 % (37-47); Hemoglobin 10.4 g/dL (12.0-15.0); Lymphocyte # 2.24 X10^3/ul (4.0); Lymphocyte % 28.4 % (19-41); Mean Corpuscular Hgb 24.9 pg (27.0-32.0); Mean Corpuscular Volume 83.2 fL (81-99); Mean Platelet Vol. 10.6 fl (6.2-12.0); Monocyte# 0.47 X10^3/uL; Monocyte% 5.9 % (0-10); NRBC Flagged by Analyzer 0 % (0-5); Neutrophil # 4.98 X10^3/uL (2.7-7.7); Platelet Count 331 K/mm3 (150-450); RBC Distribution Width CV 13.7 % (11.6-14.6); RBC Distribution Width SD 41.4 fl (35.1-43.9); Red Blood Count 4.17 M/mm3 (4.2-5.4); White Blood Count 7.9 K/mm3 (4.4-11.0)
[2019-07-01 14:50] LABS: ALB/GLOB Ratio 0.6 RATIO (0.9-2.4); AST(SGOT) 18 U/L (15-37); Alanine Aminotransfer ALT/SGPT 26 U/L (13-56); Albumin, Serum 2.9 g/dL (3.2-5.0); Alkaline Phosphatase 97 U/L (45-117); Anion Gap 9 (5-15); BUN 7 mg/dL (7-18); BUN/Creat Ratio 8.1 RATIO (10-20); Calcium,Total 9.9 mg/dL (8.5-10.1); Chloride 96 mmol/L (98-107); Creatinine, Serum 0.87 mg/dL (0.55-1.02); EST Glomerular Filtration Rate 68 mL/min (>60); Est Glom Filt Rate - Afr Amer 82 mL/min (>60); Globulin 5.2 g/dL (2.2-4.2); Glucose 141 mg/dL (74-106); Potassium 2.4 mmol/L (3.5-5.1); Protein, Total 8.1 g/dL (6.4-8.2); Sodium Level 135 mmol/L (136-145); Thyroid Stim Hormone (TSH) 0.04 uIU/mL (0.358-3.74)
[2019-07-01 18:15] LABS: Hemoglobin A1c 9.2 % (4.2-6.3)
== END | disposition home or self-care (01) ==
LOC: MFPLAB 10:32
PROVIDERS: Family Provider Family Medicine; PCP Family Medicine; Visit Provider Family Medicine
DX: D64.9 Anemia, unspecified (principal); E11.49 Type 2 diabetes mellitus with other diabetic neurological complication
CPT/HCPCS: 36415; 80053; 83036; 84443; 85025

== ENCOUNTER → 2019-07-04 | Outpatient (CLI) | payer MEDICARE, SELFPAY ==
[2018-11-22 11:43] VITALS: BMI 29.2
[2019-07-04 11:00] LABS: Anion Gap 6 (5-15); BUN 11 mg/dL (7-18); BUN/Creat Ratio 13.9 RATIO (10-20); Calcium,Total 10.1 mg/dL (8.5-10.1); Chloride 100 mmol/L (98-107); Creatinine, Serum 0.79 mg/dL (0.55-1.02); EST Glomerular Filtration Rate 75 mL/min (>60); Est Glom Filt Rate - Afr Amer 91 mL/min (>60); Glucose 171 mg/dL (74-106); Magnesium 2.1 mg/dL (1.6-2.6); Sodium Level 135 mmol/L (136-145)
== END | disposition home or self-care (01) ==
LOC: MFPLAB 08:34
PROVIDERS: Family Provider Family Medicine; PCP Family Medicine; Visit Provider Family Medicine
DX: E87.6 Hypokalemia (principal)
CPT/HCPCS: 36415; 80048; 83735

== ENCOUNTER → 2019-07-20 09:17 | Outpatient (CLI) | payer MEDICARE, SELFPAY ==
[2018-11-22 11:43] VITALS: BMI 29.2
[2019-07-20 10:25] LABS: Anion Gap 7 (5-15); BUN 13 mg/dL (7-18); BUN/Creat Ratio 12.6 RATIO (10-20); Calcium,Total 10.6 mg/dL (8.5-10.1); Chloride 100 mmol/L (98-107); Creatinine, Serum 1.03 mg/dL (0.55-1.02); EST Glomerular Filtration Rate 55 mL/min (>60); Est Glom Filt Rate - Afr Amer 67 mL/min (>60); Glucose 210 mg/dL (74-106); Potassium 4.7 mmol/L (3.5-5.1); Sodium Level 134 mmol/L (136-145)
== END ==
PROVIDERS: Family Provider Family Medicine; PCP Family Medicine; Referring Provider Family Medicine; Visit Provider Family Medicine
DX: I10 Essential (primary) hypertension (principal)
CPT/HCPCS: 36415; 80048

== ENCOUNTER → 2019-08-17 10:02 | Outpatient (CLI) | payer MEDICARE, SELFPAY ==
[2018-11-22 11:43] VITALS: BMI 29.2
[2019-08-17 12:57] LABS: Anion Gap 6 (5-15); BUN 12 mg/dL (7-18); BUN/Creat Ratio 12.3 RATIO (10-20); Calcium,Total 10.7 mg/dL (8.5-10.1); Chloride 99 mmol/L (98-107); Creatinine, Serum 0.98 mg/dL (0.55-1.02); EST Glomerular Filtration Rate 59 mL/min (>60); Est Glom Filt Rate - Afr Amer 72 mL/min (>60); Glucose 127 mg/dL (74-106); Potassium 4.4 mmol/L (3.5-5.1); Sodium Level 133 mmol/L (136-145)
== END ==
PROVIDERS: Family Provider Family Medicine; PCP Family Medicine; Referring Provider Family Medicine; Visit Provider Family Medicine
DX: E87.6 Hypokalemia (principal)
CPT/HCPCS: 36415; 80048

== ENCOUNTER → 2019-09-28 14:59 | Outpatient (CLI) | payer MEDICARE, SELFPAY ==
[2018-11-22 11:43] VITALS: BMI 29.2
--- NOTE | 2019-09-28 15:03 | RAD_ITS ---
STUDY: X-RAY - LUMBAR SPINE REASON FOR EXAM: Female, 74 years old. CHRONIC PAIN, NKI TECHNIQUE: 5 view(s) of the lumbar spine were obtained. COMPARISON: Prior study of 10/21/2016 FINDINGS: A stimulator device is seen overlying the right iliac crest with stimulator electrode located in the presacral region. Normal lumbar lordosis. There is no substantial scoliosis. There is a normal alignment of the vertebrae. There is diffuse endplate spondylosis. There is severe narrowing of the L3-4 and L4-5 disc spaces with vacuum phenomenon. There is sclerosis of the inferior aspect of L3 and superior aspect of L4 consistent with discogenic vertebral sclerosis. There is a large colonic stool burden. There are calcified plaques of the abdominal aorta and common iliac arteries. RAD/L/S Spine Min 4 Views IMPRESSION: Lumbar degenerative changes as detailed above increased in severity from the prior study. There is no evidence of fracture or spondylolisthesis. Large colonic stool burden. Electronically Signed: Christofer Paredes MD at 19:47 EST , Service support ,
[2019-09-28 18:02] LABS: Absolute Lymphocyte Count 2.48 X10^3/uL (0.83-4.51); Absolute Neutrophil Count 4.7 X10^3/uL (2.0-7.7); Basophil# 0.04 X10^3/uL; Basophil% 0.5 % (0-1); Eosinophil# 0.24 X10^3/uL; Hematocrit 29.7 % (37-47); Hemoglobin 8.8 g/dL (12.0-15.0); Lymphocyte # 2.48 X10^3/ul (4.0); Lymphocyte % 30.9 % (19-41); Mean Corp Hgb Conc 29.6 g/dL (32-36); Mean Corpuscular Hgb 23.4 pg (27.0-32.0); Mean Platelet Vol. 10.7 fl (6.2-12.0); Monocyte# 0.51 X10^3/uL; Monocyte% 6.4 % (0-10); NRBC Flagged by Analyzer 0 % (0-5); Neutrophil # 4.73 X10^3/uL (2.7-7.7); Platelet Count 328 K/mm3 (150-450); RBC Distribution Width CV 15.8 % (11.6-14.6); RBC Distribution Width SD 45.1 fl (35.1-43.9); Red Blood Count 3.76 M/mm3 (4.2-5.4)
[2019-09-28 18:29] LABS: Osmolality, Serum 288 mOsm/KG (280-301); Vitamin D,25 Hydroxy 13.6 ng/mL (29.95-100.01)
[2019-09-28 18:34] LABS: Magnesium 2.2 mg/dL (1.6-2.6); Thyroid Stim Hormone (TSH) 0.82 uIU/mL (0.358-3.74)
[2019-09-29 11:29] LABS: PTHIN 135.4 pg/mL (18.4-80.1)
== END ==
LOC: MTLAB 15:01
PROVIDERS: PCP Family Medicine; Referring Provider Family Medicine; Visit Provider Family Medicine
DX: R29.898 Other symptoms and signs involving the musculoskeletal system (principal); E83.52 Hypercalcemia; E87.1 Hypo-osmolality and hyponatremia
CPT/HCPCS: 36415; 72110; 82306; 83735; 83930; 83970; 84443; 85025

== ENCOUNTER 2019-10-03 10:40 | Outpatient (RCR) | payer MEDICARE, SELFPAY ==
[2018-11-22 11:43] VITALS: BMI 29.2
--- NOTE | 2019-10-04 08:01 | HP.OTFCE.D ---
FCE D/C Summary - Discharge OLGA DONALDSON was seen for a one time visit for an FCE on 10/03/19 and is discharged.
--- NOTE | 2019-10-04 11:27 | HP.OTFCE_ITS ---
HP OT Functional Capacity Eval Date of Evaluation: 10/03/19 - Task Lift Floor (Occasional 1-33% of Day): negligble Floor (Frequent 34-66% of Day): negligble Floor (Constant 67-100% of Day): negligble Floor PDL: Sedentary Knee (Occasional 1-33% of Day): negligble Knee (Frequent 34-66% of Day): negligble Knee (Constant 67-100% of Day): negligble Knee PDL: Sedentary Waist (Occasional 1-33% of Day): negligble Waist (Frequent 34-66% of Day): negligble Waist (Constant 67-100% of Day): negligble Waist PDL: Sedentary Shoulder (Occasional 1-33% of Day): negligble Shoulder (Frequent 34-66% of Day): negligble Shoulder (Constant 67-100% of Day): negligble Shoulder PDL: Sedentary Overhead (Occasional 1-33% of Day): negligble Overhead (Frequent 34-66% of Day): negligble Overhead (Constant 67-100% of Day): negligble Overhead PDL: Sedentary - Work Activity/Posture Bending: Occasional Ability (1-33% of day) Comments: less 10% Squatting: Occasional Ability (1-33% of day) Comments: less 10%; increased need of external supports to complete tasks. Kneeling: No Ablility (0% of day) Reaching out: Occasional Ability (1-33% of day) Reaching up: Occasional Ability (1-33% of day) Sitting: Frequent Ability (34-66% of day) Walking: Occasional Ability (1-33% of day) Comments: she cannot walk long distance; she consistently needs breaks; less 10% Standing: Occasional Ability (1-33% of day) Comments: less 10%; needs frequent seated breaks. - Reference Duration Sedentary Sedentary Light Light Light Medium Medium Medium Heavy Very Heavy Heavy Occasional (0-33% of day) Frequent (34-66% of day) Constant (67-100% of day) 10 # Negligible Negligible 15 # 8 # Negligible 20 # 10# Negli. 35 # 18 # 7 # 50 # 25 # 10 # 75 # 100 # >100 # 38 # 50 # >50 # 15 # 20 # >20 # - Patient Information Hand Dominance: R BP (Medication Use/Usual Values per pt report): Yes - Medical History Medical History Including Restrictions: No restrictions provided by doctor. OT called to ensure that functional capacity evaluation was what Dr. Smiley wanted as she is not returning to work- based tasks. Nurse at Dr. Smiley's office ensured that was correct. - Diagnoses Diagnoses: Past medical history: lumbar spinal stenosis, COPD, asthma, breast cancer (remission). Current: Juana Romano was referred for functional capacity evaluation due to need for lift chair. Medication: - Pantoprazole. - Januvia. - Miralax. - Symbicort. - Pravastatin. - Ventolin. - Novolog. - Levemir. - Metoprolol tartrate. - Lisinopril. - Diltiazem HCI. - Daliresp. - Magnesium. - Calcium. - Aspirin. - Multivitamin - Symptoms Symptoms: Symptoms include pain in bilateral lags. She noted increased symptoms of neuropathy in bilateral legs which increase numbness and burning. She noted that she gets a burning pain intermittently throughout the day but leg weakness is constant and occurs consistently throughout the day making self-care tasks very difficult. - Pain Pain: Pain is constant. She noted pain is constant but fluctuates. She noted pain will on occasional wake her up at night and she cannot longer walk long distances due to legs becoming very weak and giving out on her. Molly Pain Questionnaire is a self-report pain assessment to determine a patient?s accurate psychodynamics for accurate pain rating. A score of 30 or high indicates poor psychodynamics and the greater probability of decreased accuracy with accurate pain reporting. Pre- Molly: 39. Post Molly: 39. Fear Avoidance Questionnaire (FAQ) is a client self-report assessment for 18-64+ that has shown to be reliable and valid for determining increased fear with movements. A score of 96 or higher indicates increased fear avoidance behaviors. FAQ total:74. - Fear avoidance belief about work (items 6,7,9,10,11,12,15): 30. -Fear avoidance belief about physical activity (items 2,3,4,5):21. . The Lower Extremity Functional Scale was used to determine he perception of her ability to complete daily tasks involving the lower extremity. A lower score indicates an increase in difficulty. Score: 26/80. 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 She had to go on long- term disability around 2001 for about seven years (until turned 64 y/o) due to back pain. She noted after she was 64 years old she went onto social security. - Behavioral Behavioral: Rosalina was very pleasant. She was extremely short of breath with mild physical exertion and increased symptoms of lumbar spine pain noted as tasks progressed. Her effort appeared consistent but increased compensations and increased reliance of upper body noted for transfer from sit to stand and vice versa. She was unable to stand for more than 6 minutes on one occasion throughout the session and typically she was able to stand for no more than 3 minutes prior to needing seated break. - ADLS ADLS: Rosalina lives in house with with no steps to enter. He son lives in upstairs and home is duplex. She noted she has small threshold step to enter home through front doorway. Once inside home, she has first floor set up. She noted she completes all self-care tasks with increased time to complete daily routine. She has grab bars around tub to help with transfers but due to safety concern indicated by [facility] she has been doing sponge baths only due to increase difficulty with tub transfers. She is unable to transfer to the tub independently. She noted she is no longer driving. Rosalina explained she uses an electric cart to complete grocery shopping with . She noted she does not cook much at this time due to difficulty standing to complete tasks. and son help with all cooking and cleaning. Rosalina was not using assistive device upon arriving but noted at times when back pain increased she does use cane. - Physical Examination Physical Examination: The purpose of this functional capacity evaluation (FCE) was to determine Juana?s physical ability. This FCE was performed in order to highway painter helper in the determination of her need for a lift chair. Aerobic limiting factor: 85% of max adjust HR= (220-age) *.85= 123. Beginning Diagnostics: - Blood pressure: 147/63 mmHg. -Heart rate: 65 bpm. -Oxygen saturation at room air: 97% ROM: Lumbar: - Flexion 0-34 - need to use external support of desk to promote balance. - Extension: 0-23- need to use external support of desk to promote balance. - Lateral flexion: R 0-20, L 0-15- need to use external support of desk to promote balance. Juana exhibits increased guarding behaviors with tasks. She needs to use external support to complete positions for balance and pain. Strength: Strength measurements completed with use of manual muscle testing and short arm access of dynamometer. Results are as follows: Upper Body: Shoulder flexion: -Dynamometer: R 7.1 , L 7.2 lbs. Shoulder extension: -Dynamometer: R 7.7 , L 6.9 lbs. Shoulder abduction: -Dynamometer: R 5.7 , L 5.7 lbs. Shoulder Internal Rotation: -Dynamometer: R 12.5 , L 10.0 lbs. Shoulder External Rotation: -Dynamometer: R 7.4 , L 5.8 lbs. Elbow flexion: - Dynamometer: R 12.4 , L 9.5 lbs. Elbow extension: -Dynamometer: R 8.1 , L 7.5 lbs. Lower Body: . Hip flexion: -Dynamometer: R , L. Hip adduction: -Dynamometer: R 8.8 , L 8.7 lbs. Hip abduction: -Dynamometer: R 9.4 , L 7.9 lbs. Knee Flexion: -Dynamometer: R 14.0 , L 15.5. Knee extension: - Dynamometer: R 15.6 , L 12.7 lbs. Dorsiflexion: -Dynamometer: R 15.6 , L 12.5 lbs Right Service Aide Strength Average: 32.33 Left Service Aide Strength Average: 30.00 Right Lateral Pinch Average: 8.66 Right Lateral Pinch Percentile: approx. 10th Left Lateral Pinch Average: 8.66 Left Lateral Pinch Percentile: approx. 25th Right Tripod Pinch Average: 5.33 Right Tripod Pinch Percentile: 10th Left Tripod Pinch Average: 6.33 Left Tripod Pinch Percentile: 25th Sensation: Sensation testing completed on bilateral feet with monofilament touch test. A score of normal on touch test is 2.83 and within normal range with just some discrepancies for light touch is between 3.22-3.61. The higher the number in more complications related to patient?s ability to perceive touch related sensory stimuli. R foot. The great toe 6.65 ,2nd 6.65, 3rd 6.65, 4th 6.65, 5th 6.65. L foot. The great toe 4.08 ,2nd 6.10, 3rd 5.88, 4th 6.65, 5th 6.65. Increased difficulty getting shoes and socks on and off. She continues with need to use pant leg to complete task and increased shortness of breath noted. Increased discoloration of feet with increased dry and flaky skin patches. Fine Motor: Completed the Purdue Pegboard test to further determine the pat ient?s ability to complete 2-3 step tasks, assess fine motor control and general dexterity needed to complete assembly like work. The results are as follows: Standing: Right Hand: 9. -Percentile: below 1st. Left Hand: 8- needed to lean on table; started holding breath due to pain; had to have seated break. - Percentile: below 1st. Seated: Completed the following tasks on the Purdue Pegboard from a seated position due to pain in standing. Both Hands:4. - Percentile: below 1st. R+ L+ Both: 21. -percentile: below 1st. Assembly: 0. -percentile: below 1st. Some increased difficulty sequencing 4 step tasks as would complete 3/4 steps but not the first sequential steps currently. Rosalina exhibits increased leaning on table after sitting due to back pain. Some shortness of breath noted due to holding breath from what appeared to be pain. Balance: Functional reach test is used to determine static balance in patients. A score of 15 is normal and less than 10 increases risk of falling. A score of 6 or less significantly increases a patient?s risk of falling. [place] 1: 8. [place] 2: 7. [place] 3: 5. Average: 6.67 inches. Increased holding breath due to pain. Functional Gait Assessment (FGA) is a dynamic balance test to determine vestibular functioning and general dynamic balance ability of patient 18-65+. This assessment can be used with clients of various backgrounds to determine functional dynamic balance needed to complete every day work related tasks. 1.Gait Level Surface: 1. 2.Change in Gait Speed: 1. 3.Gait with horizontal head turns: 1. 4.Gait with vertical head turns: 1. 5.Gait and pivot turn: 1. 6.Step over obstacle:0. 7.Gait with narrow base of support: 0. 8.Gait with eyes closed: 2. 9.Ambulating Backwards: 1. 10.Steps: 1. Total Score: 9 /maximum score 30. No assistive device used for evaluation today. - Non Material Handling Activities Bending: Heart rate prior to beginning with use of pulse oximeter: 75 bpm. 3x only with ability to complete about 50% of full bend. Unable to continue standing past three repetitions as increased need for seated break. Increased pain behaviors observed with guarding behaviors and increased holding breath. Completed with decreased speed and increased fatigue with exertion. She cannot complete tasks frequently. She can completed about 10% of day. Heart rate posttest with use of pulse oximeter: 71 bpm. Perceived pain: 6/10 Squatting: Heart rate prior to beginning with use of pulse oximeter: 64 bpm. 3x squats. Rosalina completed with poor body mechanics. She completed ability to complete 25% of full squat. Increased guarding behaviors observed with movements as mechanical compensation due to what appeared to be pain. She exhibited for immediate seated break post exertion task of 2 minutes task. She does not exhibit ability to complete this task frequently. Increase in heart rate appears to be consistent with exertion and pain. Does not exhibit ability to complete safely consistently. Heart rate posttest with use of pulse oximeter: 82 bpm. Perceived pain: 6/10 Kneeling: Heart rate prior to beginning with use of pulse oximeter: 71 bpm. 3x kneel. Completed with poor body mechanics and need for external support to maintain balance. She completed about 20% of full kneel with right leg lead to complete task. She exhibits increased mechanical deficits and compensations to complete tasks. Safety concerns with ability to complete tasks. Heart rate posttest with use of pulse oximeter: 68 bpm. Perceived pain: 6/10 Reaching out/up: Heart rate prior to beginning with use of pulse oximeter: 68 bpm. Reaching out: 3x, 10x in 15 seconds, and 10x faster in 18 seconds. Heart rate posttest with use of pulse oximeter: 72 bpm. Perceived pain:6/10. From seated position: Reaching up: Heart rate prior to beginning with use of pulse oximeter: 70 bpm. 3x, 10x in 19.91 seconds, and 10x faster in 20.55 seconds. For second set of 10 faster she start to fatigue at end with need for two short two second breaks to promote completion of tasks. Heart rate posttest with use of pulse oximeter: 82 bpms. Perceived pain: 6/10 Walking: Heart rate prior to beginning with use of pulse oximeter: 62 bpm. Completed ability to complete six minutes of walking during balance testing. She exhibits antalgic and guarded gait pattern with decreased speed for completion of tasks. She exhibits increased mechanical compensations and deficits from increased forward trunk flexion and anterior pelvic tilt to promote upright position and try to manage pain. She has increase in heart rate observed. Heart rate posttest with use of pulse oximeter: 73 bpm. Perceived pain: 6/10 Standing: Able to tolerate static standing for about three minutes prior to needing seated break. For dynamic standing tasks she is about to complete standing for 6 mins and 30 seconds prior to needing for seated break. Increased mechanical changes and compensations observed. She consistently needed break after about 3 minutes with all tasks. She exhibits need for further use of assistive device. She noted she does not currently use consistently but does have cane she will use on occasion. Sitting: Rosalina is able to complete 30 mins of seated tasks with weight shifts as needed to manage pain. She noted sitting is one of her more comfortable positions and utilizes position to help complete daily tasks. She often sits throughout the day as she is unable to complete consistently mobility tasks. Climbing Stairs: Heart rate prior to beginning with use of pulse oximeter: 64 bpm. Completed 10 stairs with increased mechanical deficits and compensations. Relies on bilateral upper extremities to use handrail to complete stairs. Increased safety concerns. She does not exhibit ability to complete stairs without assisted from therapist at this time. Heart rate posttest with use of pulse oximeter: 78 bpm. Perceived pain:6/10 - Dynamic Occasional Lifting Capacity Floor Lift: Heart rate prior to beginning with use of pulse oximeter: 68 bpm. Maximum weight: 1x 10 lbs. Occasional Liftinx 7.5 lbs. Frequent liftin lbs. Completed task with fair to poor body mechanics. Increased mechanical compensations and decreased spinal alignment observed. Safety concerns with completion of tasks for balance. Need for immediate seated break after two minutes of standing for task. Increase in heart rate observed likely from pain and exertion. Heart rate posttest with use of pulse oximeter: 83 bpm. Perceived pain:6/10 Knee Lift: Heart rate prior to beginning with use of pulse oximeter: 68 bpm. Occasional Liftinx 7.5 lbs. Frequent liftin lbs. Increased mechanical deficits and changes observed. She exhibits increase in heart rate likely due to exertion and pain. Pain behaviors noted with holding breath and decreased spinal alignment. Would not recommend completing regularly. Need for immediate seated break after two minutes of standing for task. Increase in heart rate observed likely from pain and exertion. Heart rate posttest with use of pulse oximeter: 71 bpm. Perceived pain:6/10 Waist Lift: Heart rate prior to beginning with use of pulse oximeter: 68 bpm. Occasional Liftinx 7.5 lbs. Frequent liftin lbs. Completed with fair to poor body mechanics and increased compensations noted throughout bilateral upper extremities. Increased pain behaviors observed of holding breath and decreased pace to complete tasks. Need for immediate seated break after two minutes of standing for task. Increase in heart rate observed likely from pain and exertion. Heart rate posttest with use of pulse oximeter: 74 bpm. Perceived pain: 6/10 Shoulder Lift: Heart rate prior to beginning with use of pulse oximeter: 91 bpm. Occasional Liftinx 7.5 lbs. Frequent liftin lbs. Increased mechanical changes and compensations. Need for decreased spinal alignment to place box. Rosalina exhibits fair to poor body mechanics. Increased pain behaviors observed of holding breath and decreased pace to complete tasks. Need for immediate seated break after two minutes of standing for task. Increase in heart rate observed likely from pain and exertion. Perceived pain: 6/10 Overhead Lift: Heart rate prior to beginning with use of pulse oximeter: 81 bpm. Occasional Liftinx 7.5 lbs. Frequent liftin lbs. Increased mechanical changes and compensations. Need for decreased spinal alignment to place box. Rosalina exhibits fair to poor body mechanics. Increased pain behaviors observed of holding breath and decreased pace to complete tasks. Need for immediate seated break after two minutes of standing for task. Increase in heart rate observed likely from pain and exertion. Heart rate posttest with use of pulse oximeter: 91 bpm. Perceived pain: 6/10 Carrying: Attempted but not appropriate at this time due to safety concerns. Comments: Rosalina completed tasks asked of her and was pleasant and cooperative throughout evaluation. As tasks progressed increased mechanical changes and compensations were observed. She exhibits need to have lift chair as she exhibits decreased ability to complete standing and walking tasks as well as decreased ability to use bilateral lower extremities for functional transfers. She has increased difficulty completing functional based movements and transfers and was observed to rely on external supports and upper extremities to complete transfers for her. A lift chair would highway painter helper in maintaining her mobility and safety while in her home. Diagnostics: -Blood pressure: 148/73 mmHg. -Heart rate: 74 bpm. -Oxygen saturation at room air: 97%
== END 2019-10-03 19:00 | disposition home or self-care (01) ==
LOC: OT 10:40
PROVIDERS: PCP Family Medicine; Referring Provider Family Medicine; Visit Provider Family Medicine
DX: E11.40 Type 2 diabetes mellitus with diabetic neuropathy, unspecified (principal); R29.898 Other symptoms and signs involving the musculoskeletal system
CPT/HCPCS: 97750

== ENCOUNTER → 2019-10-11 | Outpatient (CLI) | payer MEDICARE, SELFPAY ==
[2018-11-22 11:43] VITALS: BMI 29.2
--- NOTE | 2019-10-11 14:53 | CT_ITS ---
STUDY: CT LUMBAR SPINE WITHOUT CONTRAST REASON FOR EXAM: Female, 74 years old. LEG WEAKNESS AND BACK PAIN X YEARS RADIATION DOSAGE (If Supplied By Facility): CTDIvol = ( 30.00 ) mGy, DLP = ( 944.41 ) mGycm TECHNIQUE: The patient was scanned in a multi detector CT scanner. High resolution transaxial imaging was performed. Images were obtained from T12 to S4. Sagittal and coronal images were reconstructed. Individualized dose optimization techniques were used for this CT. COMPARISON: None FINDINGS: Normal lumbar lordosis. There is no substantial scoliosis. Normal alignment of the lumbar vertebral bodies. There is diffuse osteopenia/osteoporosis. There is severe degenerative disease at L3-L4 with vacuum phenomenon and increased sclerosis. There is no demonstrated compression deformity or fracture of the visualized lumbar vertebrae. L1-2: Normal endplates. Normal disc height and morphology. Normal facet hypertrophy. Normal central canal and bilateral lateral recesses. Normal bilateral intervertebral neural foramina. L2-3: Mild diffuse posterior disc bulge. Mild facet hypertrophy. Normal central canal and bilateral lateral recesses. Normal bilateral intervertebral neural foramina. L3-4: Vacuum phenomenon with significant osteophytosis and disc bulge with marked hypertrophy of ligamentum flavum and facet complex. There is significant narrowing of thecal sac to 4 mm consistent with severe spinal stenosis. Narrowing of the bilateral intervertebral foramen. L4-5: Broad-based central disc bulge with osteophytosis and calcification of disc. Hypertrophy of ligamentum flavum and facet complex contributing to minimal AP diameter of thecal sac of 0.7 cm. There is bilateral lateral recess impingement. L5-S1: Diffuse posterior disc bulge and hypertrophy of ligamentum flavum and facets. No spinal stenosis or neuroforaminal encroachment. Calcified atherosclerotic disease of aorta seen. Atrophy of the posterior paraspinal musculature. CT/Spine Lumbar without Contrast IMPRESSION: Multilevel spondylosis/degenerative disease as described. No acute fracture or subluxation. Spinal stenosis at L3-L4 and less severe L4-L5. Electronically Signed: Ryanne Hernandez MD at 4:13 EST , Service support ,
== END | disposition home or self-care (01) ==
LOC: CT 14:45
PROVIDERS: PCP Family Medicine; Referring Provider Family Medicine; Visit Provider Family Medicine
DX: M51.36 Other intervertebral disc degeneration, lumbar region (principal)
CPT/HCPCS: 72131

== ENCOUNTER 2019-12-02 08:27 | Inpatient (IN) | payer MEDICARE, SELFPAY ==
[2018-11-22 11:43] VITALS: BMI 29.2
[2019-12-02] VITALS (21 sets, daily range): BP systolic 124–161; BP diastolic 40–71; PULSE 66–91; RESP 16–20; TEMP 36.7–37.3; O2SAT 93–100; BMI 31.5; BMI 30.2; BMI 30.3
--- NOTE | 2019-12-02 08:31 | RAD_ITS ---
STUDY: X-RAY CHEST REASON FOR EXAM: Female, 74 years old. Sternal cp no pattern. Dizziness and sob. Gait unsteady and pain worse with minimal exertion, copd TECHNIQUE: Single AP portable view of the chest. COMPARISON: Comparison is made with prior study dated August 10, 2015. FINDINGS: EKG electrodes are seen. The lungs are clear and expanded. Blunting of the left costophrenic angle. There is borderline cardiomegaly. Normal mediastinum and eliana. Normal visualized pulmonary arteries. There is atherosclerotic calcification of the aortic arch with tortuosity. Normal visualized thoracic spine. There is degenerative osteoarthritis of the bilateral shoulders. There is no demonstrated abnormality of the visualized soft tissue structures of the upper abdomen. RAD/Chest 1 View (Portable) IMPRESSION: Borderline cardiomegaly. Blunting of the left costophrenic angle Electronically Signed: Robert Randall, at 9:17 EDT , Service support ,
[2019-12-02 08:49] LABS: Absolute Lymphocyte Count 2.17 X10^3/uL (0.83-4.51); Absolute Neutrophil Count 7.3 X10^3/uL (2.0-7.7); Basophil# 0.03 X10^3/uL; Basophil% 0.3 % (0-1); Eosinophil# 0.13 X10^3/uL; Eosinophils% 1.2 % (0-5); Hematocrit 20.4 % (37-47); Lymphocyte # 2.17 X10^3/ul (4.0); Lymphocyte % 20.8 % (19-41); Mean Corp Hgb Conc 27.9 g/dL (32-36); Mean Corpuscular Hgb 20.1 pg (27.0-32.0); Mean Corpuscular Volume 71.8 fL (81-99); Mean Platelet Vol. 11.2 fl (6.2-12.0); Monocyte# 0.74 X10^3/uL; Monocyte% 7.1 % (0-10); NRBC Flagged by Analyzer 0 % (0-5); Neutrophil # 7.32 X10^3/uL (2.7-7.7); Neutrophil % 70.2 % (47-70); POSITIVE COUNT YES; Platelet Count 305 K/mm3 (150-450); RBC Distribution Width CV 19.2 % (11.6-14.6); RBC Distribution Width SD 50.1 fl (35.1-43.9); Red Blood Count 2.84 M/mm3 (4.2-5.4); White Blood Count 10.4 K/mm3 (4.4-11.0)
[2019-12-02 09:01] LABS: Anion Gap 7 (5-15); BUN 11 mg/dL (7-18); BUN/Creat Ratio 12.2 RATIO (10-20); Calcium,Total 9.6 mg/dL (8.5-10.1); Chloride 97 mmol/L (98-107); EST Glomerular Filtration Rate 64 mL/min (>60); Est Glom Filt Rate - Afr Amer 78 mL/min (>60); Estimated Creatinine Clearance 44.68 ml/min; Glucose 248 mg/dL (74-106); Potassium 3.2 mmol/L (3.5-5.1); Sodium Level 133 mmol/L (136-145)
[2019-12-02 09:04] LABS: Hemoglobin 5.7 g/dL (12.0-15.0)
--- NOTE | 2019-12-02 09:24 | ED.DCSUM_ITS ---
- ER Visit Summary Date of Service: 12/02/19 Chief Complaint: Chest pain History of Present Illness: The patient is a [address] Ramone Smiley. She reports that she has chest pain that began yesterday. It is an intermittent pain that lasts minutes at a time. Is brought on by exertion and resolves with rest. She describes it as a fullness that is substernal. There is no radiation to her jaw, neck, or shoulders. She reports it is 7 out of 10 at worst and she is pain-free currently. She does report that she feels lightheaded and short of breath when this comes on. She denies any nausea, vomiting, or diaphoresis. Physical Examination: Vitals: Stable. Afebrile. General: Well-nourished and well-developed. Head: Normocephalic atraumatic. Neck: Supple, no lymphadenopathy. No JVD. Nontender. Cardiovascular: Regular rate and rhythm. No murmurs. Respiratory: No respiratory distress. Clear to auscultation bilaterally. Abdominal: Soft, nontender, nondistended, normal bowel sounds. No guarding, rebound, or peritoneal signs. Back: Nontender. Extremities: Nontender, no edema. Skin: Normal color, no rash. Neurologic: Alert and oriented ?3. Cranial nerves II through XII are intact. Normal strength and sensation. Psych: Normal affect. Test Results: EKG is sinus at [address] changes. Her QTC is 533. This is the only change from December 2015. Troponin is 0.018. Chem-7 shows a sodium 133, potassium 3.2, chloride of 97, glucose of 248. CBC shows a hemoglobin of 5.7 with hematocrit of 20.4. Chest x-ray shows chronic changes. Emergency Department Course and Treatment: Patient received aspirin by squad. She was typed and crossed for 2 units of packed red blood cells. She is resting comfortably and is pain-free while here. When her hemoglobin returned I did discuss with her the possibility of blood loss. She denies any blood in her stools or black tarry stools. She reports that she had a minor nosebleed last week. She denies any other trauma. Treatment Plan: Patient was discussed with Dr. Skaggs. She will be admitted to the hospital for further evaluation and treatment. Disposition: Admitted in stable condition. Impression: 1. Anemia. 2. Chest pain. This note was generated with [employer] dictation software. It may contain incorrect words, spelling, and punctuation that were not noted in review of the chart prior to signing ED Disposition - Plan for ED Patient: Referrals: Ramone Smiley MD [Primary Care Provider] -
--- NOTE | 2019-12-02 09:33 | NURSING ---
PCU OBS SEMENTI ANEMIA, CP
[2019-12-02 09:58] LABS: Immature Platelet Fraction 9.2 % (1.0-7.9); RET-HE 18.2 pg (30-35); Reticulocyte Count 2.38 % (0.5-1.5)
[2019-12-02 10:04] LABS: Ferritin 11 ng/mL (8-252); Iron 13 ug/dL (50-170); Iron Binding Capacity,Total 348 ug/dL (250-450); PERCENT IRON SATURATION 3.7 % (15.0-55.0)
--- NOTE | 2019-12-02 10:19 | HP.PCM_ITS ---
Problem List (1) Microcytic anemia Status: Acute (2) Hypokalemia Status: Acute (3) Neurogenic bladder Status: Chronic (4) Former smoker Status: Chronic (5) Dehydration Status: Resolved (6) Iron deficiency anemia Status: Chronic (7) Acute renal failure Status: Resolved (8) Chronic renal failure, stage 3 (moderate) Status: Chronic (9) Urine retention Status: Chronic (10) Hyponatremia Status: Acute (11) Aortic stenosis Status: Chronic Qualifiers: Cardiac valve disease etiology: nonrheumatic Qualified Code(s): I35.0 - Nonrheumatic aortic (valve) stenosis Comment: valve area in 2014 was 1.7cm2 (12) COPD (chronic obstructive pulmonary disease) Status: Chronic (13) History of constipation Status: Chronic (14) Hx of venous thrombosis and embolism Status: Chronic (15) History of malignant neoplasm of breast Status: Chronic Comment: lumpectomy in 2003 (16) Hypertension Status: Chronic (17) Type 2 diabetes mellitus Status: Chronic (18) Asthma Status: Chronic (19) Hyperlipidemia Status: Chronic (20) Thyroid goiter Status: Chronic (21) GERD (gastroesophageal reflux disease) Status: Chronic (22) Colon polyp Status: Chronic Comment: removed with a hot snare in Jul 2018....tubular adenoma (23) Diabetic retinopathy Status: Chronic (24) Lumbar spinal stenosis Status: Chronic Qualifiers: Neurogenic claudication status: with neurogenic claudication Qualified Code(s): M48.062 - Spinal stenosis, lumbar region with neurogenic claudication Comment: Severe stenosis at L3-4 and L4-[address] scan of the lumbar spine in October 2019 (25) Foraminal stenosis of lumbar region Status: Acute History of Present Illness Date of Admission: 12/02/19 Chief Complaint: Chest pain associated with dyspnea on exertion and lightheadedness. The patient is a 74 year old F with a past medical history of hypertension, diabetes mellitus type 2, COPD, chronic renal failure stage III, chronic constipation, history of DVT and pulmonary embolism, history of breast cancer, former tobacco dependence, chronic urine retention (self caths), GERD, thyroid goiter, hyperlipidemia, peripheral arterial disease, vitamin D deficiency and mild aortic stenosis on an echocardiogram done in 2017 who presented to the emergency room complaining of substernal chest pain/heaviness with ambulation. She denied any chest pain at rest. The chest pain is associated with shortness of breath and lightheadedness. She has noticed she has been more fatigued recently. She denied diaphoresis or nausea. She had a cardiac catheterization in the remote past done by Dr. Higgins. She does not see a junior network administrator. Vital signs presentation to the emergency department were temperature 98.8, pulse rate 74, blood pressure 135/58, respiratory rate 17 and she was 95% saturated on room air. CBC showed a white blood count of 10.4, hemoglobin of 5.7, MCV of 71.8 and platelets of 305,000. Reticulocyte count is mildly increased but not increased appropriately for this degree of anemia. Sodium is low at 133, potassium is low at 3.2 and the chloride is 97. The BUN is 11 and the creatinine is 0.9. Random blood sugar was 248. Serum iron is very low at 13 and the TIBC is high normal at 348. Ferritin level is only 11. The troponin was 0.018. EKG showed no evidence of ST segment elevation or significant ST segment depression. Chest x-ray showed no infiltrates, pleural effusions or pulmonary vascular congestion. She is being admitted to the hospital with severe anemia, unstable angina. She had a colonoscopy done by Dr. Umaña in July of 2018 that showed 1 polyp in the cecum which was removed with a hot snare. Pathology revealed a tubular adenoma. She also had an EGD and there was a biopsy of a gastric lesion that revealed fibrosis and congestion. Past Medical History Past Medical History (Chronic Problems): Chronic Problems (Last Reviewed 12/02/19 @ 10:[address] Kadie Skaggs, DO) Neurogenic bladder (Chronic) Hyperlipidemia (Chronic) Thyroid goiter (Chronic) GERD (gastroesophageal reflux disease) (Chronic) Colon polyp (Chronic) removed with a hot snare in Jul 2018....tubular adenoma Diabetic retinopathy (Chronic) Lumbar spinal stenosis (Chronic) Severe stenosis at L3-4 and L4-[address] scan of the lumbar spine in October 2019 Former smoker (Chronic) Iron deficiency anemia (Chronic) Chronic renal failure, stage 3 (moderate) (Chronic) Urine retention (Chronic) Aortic stenosis (Chronic) valve area in 2014 was 1.7cm2 COPD (chronic obstructive pulmonary disease) (Chronic) History of constipation (Chronic) Hx of venous thrombosis and embolism (Chronic) History of malignant neoplasm of breast (Chronic) lumpectomy in 2003 Hypertension (Chronic) Type 2 diabetes mellitus (Chronic) Asthma (Chronic) Medical History: Medical History (Last Reviewed 12/02/19 @ 10:[address] 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 Hypercholesteremia E78.00 Leg weakness, bilateral R29.898 Peripheral artery disease I73.9 Polypharmacy Z79.899 Pruritus L29.9 Retinopathy H35.00 Rhinitis J31.0 Strain of right rotator cuff capsule S46.011A Urinary retention with incomplete bladder emptying R33.9 Vitamin D deficiency E55.9 Hypertension I10 Allergies amoxicillin Allergy (Verified 12/02/19 08:28) YEAST INFECTION cephalexin monohydrate [From Keflex] Allergy (Verified 12/02/19 08:28) Rash clopidogrel bisulfate [From Plavix] Allergy (Verified 12/02/19 08:28) Other cloth tap Allergy (Uncoded 12/02/19 08:28) Other Home Medications: Ambulatory Orders Medication Instructions Recorded Lisinopril [Zestril] 40 mg PO BID 12/25/14 Aspirin [Aspirin, Baby] 81 mg PO DAILY@0800 01/21/16 Astepro 1 - 2 sprays NASAL BID 01/21/16 Sitagliptin Phosphate [Januvia] 50 mg PO DAILY 01/21/16 budesonide-formoterol HFA 160 2 puff INHALATION BID g 01/12/18 mcg-4.5 mcg/actuation aerosol inhaler sodium chloride 0.65 % nasal spray 1 spray INTRANASAL Q2H PRN PRN 01/12/18 aerosol Albuterol Inhaler [Ventolin Hfa] 2 puff INHALATION Q4H PRN PRN 08/16/18 Bisacodyl [Dulcolax] 5 mg PO DAILY PRN 08/16/18 Calcium Carbonate 600 mg PO DAILY 08/16/18 Cod Liver Oil 1 tab PO BREAKFAST 08/16/18 Diltiazem HCl [Cardizem LA] 180 mg PO DAILY 08/16/18 Ferrous Gluconate 325 mg PO BID 08/16/18 Lubiprostone [Amitiza] 24 mcg PO BIDCM 08/16/18 Magnesium Oxide [Mag-Ox 400] 400 mg PO BIDCM 08/16/18 Metoprolol Tartrate [Lopressor 25 mg PO BID 08/16/18 (beta jefe)] Multivitamins,Therapeutic 1 tablet PO DAILY 08/16/18 [Multivitamin] Potassium Citrate [Potassium 5 meq PO BID 08/16/18 Citrate ER] Pravastatin Sodium 20 mg PO QHS 08/16/18 Psyllium [Metamucil] 1 packet PO BID 08/16/18 proMETHazine tablet [Phenergan 12.5 mg PO Q8H PRN PRN 08/16/18 tablet] Insulin Detemir [Levemir FlexPen] 25 units SC BID #0 08/20/18 Pantoprazole Sodium [Protonix] 40 mg PO DAILY #30 tablet 08/20/18 Polyethylene Glycol 3350 [Miralax] 17 gm PO BID #60 packet 08/20/18 Sennosides/Docusate Sodium 1 each PO BID #60 tablet 08/20/18 [Senna-Docusate Sodium Tablet] Sucralfate [Carafate] 1 gm PO 1HR_ACHS #120 tablet 08/20/18 Surgical History: Surgical History (Last Reviewed 12/02/19 @ 10:[address] Kadie Skaggs DO) History of Achilles tendon repair Z98.890 History of lumpectomy of left breast Z98.890 2004 Retinopathy H35.00 LASER SURGERY LEFT EYE 2005 Surgical History: mastectomy, - - colonoscopies in the past she does not think found anything significant. Psychiatric History: No pertinent psych hx [employer] History: No pertinent [employer] history Lives: Spouse/ Significant Other Smoking Status: Former smoker Tobacco Use: Non-smoker Alcohol: None Drugs: None - *Family History Maternal Family History: Family History (Last Reviewed 12/02/19 @ 10:[address] Kadie Skaggs DO) Daughter Breast cancer Father Hypertension Sister Cancer Kidney disease Mother Pancreatic cancer History Items: Diabetes, Hypertension Paternal Family History: Family History (Last Reviewed 12/02/19 @ 10:[address] Nanda Sementi, DO) Daughter Breast cancer Father Hypertension Sister Cancer Kidney disease Mother Pancreatic cancer History Items: Diabetes, Hypertension Review of Systems Constitutional: Reports: Weakness - Easily fatigues. Denies: Anorexia, Chills, Fever, Weight Change Eyes: Denies: Blurred vision HEENT: Denies: Difficulty Swallowing, Head Aches, Nasal Congestion, Sinus Congestion, Sinus Drainage, Sore Throat Cardiovascular: Reports: Chest Pain, Chest Pressure, Light Headedness. Denies: Edema, Orthopnea, Palpitations, Syncope Respiratory: Reports: Cough - Chronic with no recent changes, Shortness of breath upon exertion. Denies: Hemoptysis, Pleuritic Pain, Shortness of breath at rest, Sputum production Gastrointestinal: Reports: Constipation. Denies: Abdominal Pain, Hematemesis, Hematochezia, Nausea, Vomiting Genitourinary: Denies: Dysuria Gynecological: Denies: Breast symptoms Musculoskeletal: Reports: Back Pain - Chronic. Denies: Joint Pain, Joint Tenderness Skin: Reports: Dryness. Denies: Jaundice, Rash, Wounds Neurological: Reports: - - She reports of burning in her thighs when she ambulates that is relieved with rest. Denies: Focal weakness, Numbness, Tingling, Seizures Psychiatric: Denies: Anxiety, Depression, Homicidal Ideations, Suicidal Ideations Endocrine: Reports: - - She has a thyroid goiter Hematologic/ Lymphatic: Reports: Hx of blood clot. Denies: Easy Bruising, Easy Bleeding VTE Information - Inpt Only VTE Present on Admission: No VTE Mechan Device Prophylaxis: SCD's VTE Pharm Prophylaxis ordered?: No Reason prophylaxis not ordered:: Medical Contraindication - she has severe anemia and we have not identified the source of the blood loss Patient Problems: Active and Suspected Problems (Last Reviewed 12/02/19 @ 10:[address] Kadie Skaggs, DO) Microcytic anemia (Acute) Hypokalemia (Acute) Foraminal stenosis of lumbar region (Acute) - Physical Exam Vitals/I&O's: Vital Signs Temp Pulse Resp BP Pulse Ox 98.7 F 78 20 H 138/60 H 99 12/02/19 09:35 12/02/19 09:35 12/02/19 09:35 12/02/19 09:35 12/02/19 09:35 Oxygen Flow Rate (L/min) 2 Oxygen Delivery Method Nasal Cannula Weight: 177 lb 14.609 oz Body Mass Index (BMI) 31.5 General: Alert, Oriented x3, Cooperative, No apparent distress, Well developed, Well nourished HEENT: Atraumatic, PERRLA, EOMI, Normocephalic Oral: Moist Mucosa Neck: Supple, No JVD, Carotid Bruits, Bilateral - vs radiation of aortic stenosis MM Lungs: Clear to auscultation - with rare wheeze. Not tachypneic, no conversational dyspnea, no accessory muscle use. Cardiovascular: Regular rate, Regular Rhythm, Normal S1, Normal S2, Murmur - Holosystolic murmur heard at the second right intercostal space, 3/6. Murmur radiates to the left ventricular outflow tract, lower left sternal border, apex. She also has a systolic murmur heard in the left axillary listening post., No rub noted, No Gallop Abdomen: Bowel Sounds Present, Soft, Non Tender Extremities: No clubbing, No cyanosis, No edema, No Calf Tenderness, Peripheral Pulses Normal Skin: No rashes, No breakdown Musculoskeletal: No Tenderness to Palpation of Joints or Extremities, Arthritic Changes Neurological: Cranial nerves II-XII grossly intact Psych/Mental Status: Normal Affect, Appropriate Laboratory Results 12/02/19 08:30: WBC 10.4, RBC 2.84 L, Hgb 5.7 L*, Hct 20.4 L, MCV 71.8 L, MCH 20.1 L, MCHC 27.9 L, RDW Std Deviation 50.1 H, RDW Coeff of Vijay 19.2 H, Plt Count 305, MPV 11.2, Immature Gran % (Auto) 0.400, Neut % (Auto) 70.2 H, Lymph % (Auto) 20.8, [place] % (Auto) 7.1, Eos % (Auto) 1.2, Baso % (Auto) 0.3, Absolute Neuts (auto) 7.3, Absolute Lymphs (auto) 2.17, Nucleated RBC % 0, Diff Path Review December12/02/19 08:30: Sodium 133 L, Potassium 3.2 L, Chloride 97 L, Carbon Dioxide 29.0, Anion Gap 7, BUN 11, Creatinine 0.90, Estim Creat Clear Calc 44.68, Est GFR (MDRD) Af Amer 78, Est GFR (MDRD) Non-Af 64, BUN/Creatinine Ratio 12.2, Glucose 248 H, Calcium 9.6, Troponin I 0.018 12/02/19 08:30: Immature Plt Fraction 9.2 H, Retic Count 2.38 H, Immature Retic Fraction 33.10 H, Retic Hgb Equivalent 18.2 L 12/02/19 08:30: Iron 13 L, TIBC 348, Iron Saturation 3.7 L, Ferritin 11 12/02/19 09:15: Blood Type Pending, Antibody Screen Pending, Crossmatch See Detail Assessment/Plan All Active Problems (Last Reviewed 12/02/19 @ 10:[address] Kadie sinclair, DO) Microcytic anemia (Acute) Hypokalemia (Acute) Foraminal stenosis of lumbar region (Acute) Hypophosphatemia (Resolved) Hypercalcemia (Resolved) UTI (urinary tract infection) (Resolved) Hyponatremia (Acute) Acute renal failure (Resolved) Dehydration (Resolved) Impressions 1. Unstable angina-suspect that the chest pain has been brought on by severe anemia. That being said she has multiple risk factors for coronary artery disease including diabetes mellitus type 2, hypertension, hyperlipidemia, former smoking history, age greater than 55. Serial cardiac enzymes have been ordered . EKG shows no ST elevation and no significant ST segment depression or T wave changes. Patient was not having chest pain when the 2 EKGs I reviewed were done. I discussed with Dr. Juarez who recommends we is fused and continue to evaluate. He would not do an echocardiogram at this time since she had an echo in July 2018 that showed only mild aortic stenosis. The murmur is likely louder because of the severe anemia. He also does not recommend a stress test at this time due to the Adame virus. He will follow up with her as an OP. she was admitted to PCU. 2. Severe microcytic anemia with iron deficiency-no source of bleeding has been identified yet. Patient does take aspirin daily and she takes 600 mg of Motrin a few times a week. She is on Protonix as an outpatient and this is been continued. We will add Carafate to her drug regimen. Monitor H&H every 6 hours over the next 24 hours. 2 units of packed red blood cells have been ordered and follow-up lab in the a.m. Because of the coronavirus only emergent endoscopy is being done at this time. If her hemoglobin stabilizes she will be discharged home. She was on an iron supplement home however it apparently is n ot working. She is a candidate for intravenous iron infusions. Will give 100 mg of iron sucrose intravenously today. 3. Hyponatremia-IV fluids were ordered in the emergency department 4. Hypokalemia-supplementation ordered. Chronic underlying medical conditions include: Hypertension/hyperlipidemia/GERD/chronic renal failure stage III/thyroid goiter/peripheral arterial disease/severe spinal canal stenosis at L3-L4 and L4- L5 with neurogenic claudication/diabetic retinopathy/mild aortic stenosis/history of DVT and PE/history of breast cancer with lumpectomy in 2003/COPD -we will continue her home medications. These conditions complicate management, recovery and prognosis. Inpatient E&M: [id number] Init Hosp L3
--- NOTE | 2019-12-02 10:20 | EKG12_ITS ---
Test Reason : CP Blood Pressure : / mmHG Vent. Rate : 067 BPM Atrial Rate : 067 BPM P-R Int : 176 ms QRS Dur : 078 ms QT Int : 440 ms P-R-T Axes : 054 027 007 degrees QTc Int : 464 ms Normal sinus rhythm Nonspecific ST and T wave abnormality Abnormal ECG Confirmed by DEBORAH LEARY, KHRIS ([id number]), design editor MARION BARRIOS ([id number] on 12/06/2019 2:19:24 PM Referred By: Ramone Veras Confirmed By:LIZZ CABRERA MD
[2019-12-02 10:52] LABS: Hematocrit 17.9 % (37-47); POSITIVE COUNT YES
[2019-12-02 10:59] LABS: Hemoglobin 5.1 g/dL (12.0-15.0)
[2019-12-02 11:04] LABS: International Normalized Ratio 1.2; Partial Thromboplast Time 25.4 Seconds (24.1-36.2); Prothrombin Time (Protime)PT. 15.5 SECONDS (11.7-14.9)
[2019-12-02 11:09] LABS: AST(SGOT) 30 U/L (15-37); Alanine Aminotransfer ALT/SGPT 33 U/L (13-56); Albumin, Serum 2.6 g/dL (3.2-5.0); Alkaline Phosphatase 98 U/L (45-117); Globulin 4.5 g/dL (2.2-4.2); Magnesium 2.2 mg/dL (1.6-2.6); Protein, Total 7.1 g/dL (6.4-8.2)
[2019-12-02] MEDS: dilTIAZem CD 180 MG Capsule PO (12:58)
[2019-12-02] MEDS: Lisinopril 40 MG Tablet PO (12:59)
[2019-12-02] MEDS: LINAGLIPTIN 5 MG TABLET PO (12:59)
[2019-12-02] MEDS: Empagliflozin 10 MG Tablet PO (12:59)
[2019-12-02] MEDS: Pantoprazole Sodium 40 MG Tablet PO (12:59)
[2019-12-02] MEDS: Azelastine HCl NASAL.SRY 1 SPRAY NASAL ×2 (13:02→22:29)
[2019-12-02] MEDS: Albuterol 2.5 MG/3 ML VIAL.NEB. INHALATION ×2 (13:12→19:34)
[2019-12-02 13:16] LABS: Bedside Glucose 217 mg/dL (70-110)
[2019-12-02] MEDS: Acetaminophen 325 MG Tablet 650 MG PO (16:31)
[2019-12-02] MEDS: Magnesium Oxide 400 MG Tablet PO (16:33)
[2019-12-02] MEDS: Polyethylene Glycol 3350 17 GM PACKET PO (16:33)
[2019-12-02] MEDS: Sucralfate 1 GM Tablet PO ×2 (16:34→22:29)
[2019-12-02 17:05] LABS: Bedside Glucose 252 mg/dL (70-110)
[2019-12-02] MEDS: Insulin Lispro 100 UNIT/ML INSULN.PEN 10 UNIT SC (17:49)
[2019-12-02 19:07] LABS: Mucous, Urine 0 SEEN /hpf (<or=2+); Red Blood Cells-Urine 0 SEEN /hpf (0-5)
[2019-12-02 19:32] LABS: Color, Urine Yellow (Yellow); Glucose, Dipstick 1000 mg/dl (Normal); Ketone-Dipstick Negative (Negative); Leukocyte Esterase-Dipstick Negative /ul (Negative); Nitrite-Dipstick Negative (Negative); Occult Blood-Urine Negative /ul (Negative); Protein-Dipstick 30 mg/dl (Negative); Urine Bilirubin Dipstick Negative (Negative); Urine Clarity Clear (Clear); Urine Urobilinogen Normal (Normal)
[2019-12-02] MEDS: Budesonide Respules 0.5 MG/2 ML AMPUL.NEB. INHALATION (19:34)
[2019-12-02 19:43] LABS: Squamous Epithelial Cells - UA 0-5 SEEN /hpf (5-10); White Blood Cells 0-5 SEEN /hpf (0-5)
[2019-12-02 19:44] LABS: Bacteria 4+ /hpf (None Seen); Yeast-Urine 1+ /hpf (None Seen)
[2019-12-02] MEDS: Lubiprostone 24 MCG Capsule PO (22:29)
[2019-12-02] MEDS: Atorvastatin Calcium 40 MG Tablet PO (22:29)
[2019-12-02] MEDS: Metoprolol Tartrate 25 MG Tablet PO (22:29)
[2019-12-02] MEDS: Senna/Docusate Sodium 1 Tablet PO (22:29)
[2019-12-02 23:26] LABS: Bedside Glucose 171 mg/dL (70-110)
[2019-12-03] VITALS (14 sets, daily range): BP systolic 129–152; BP diastolic 56–68; PULSE 71–91; RESP 14–32; TEMP 36.9–37.4; O2SAT 94–100
[2019-12-03 00:03] LABS: Hemoglobin 7.1 g/dL (12.0-15.0)
[2019-12-03 07:16] LABS: Absolute Lymphocyte Count 1.58 X10^3/uL (0.83-4.51); Absolute Neutrophil Count 8.3 X10^3/uL (2.0-7.7); Basophil# 0.05 X10^3/uL; Basophil% 0.5 % (0-1); Eosinophil# 0.14 X10^3/uL; Eosinophils% 1.3 % (0-5); Hematocrit 25.4 % (37-47); Hemoglobin 7.7 g/dL (12.0-15.0); Lymphocyte # 1.58 X10^3/ul (4.0); Lymphocyte % 14.4 % (19-41); Mean Corp Hgb Conc 30.3 g/dL (32-36); Mean Corpuscular Hgb 22.7 pg (27.0-32.0); Mean Corpuscular Volume 74.9 fL (81-99); Mean Platelet Vol. 11.2 fl (6.2-12.0); Monocyte# 0.87 X10^3/uL; Monocyte% 7.9 % (0-10); NRBC Flagged by Analyzer 0.4 % (0-5); Neutrophil # 8.32 X10^3/uL (2.7-7.7); Neutrophil % 75.4 % (47-70); Platelet Count 274 K/mm3 (150-450); RBC Distribution Width CV 19.5 % (11.6-14.6); RBC Distribution Width SD 52.9 fl (35.1-43.9); Red Blood Count 3.39 M/mm3 (4.2-5.4); Scan Indicated on CBC? Y/N NO
[2019-12-03] MEDS: Albuterol 2.5 MG/3 ML VIAL.NEB. INHALATION ×2 (07:38→13:39)
[2019-12-03] MEDS: Budesonide Respules 0.5 MG/2 ML AMPUL.NEB. INHALATION (07:38)
[2019-12-03 08:06] LABS: Bedside Glucose 84 mg/dL (70-110)
[2019-12-03 08:13] LABS: Anion Gap 3 (5-15); BUN 11 mg/dL (7-18); BUN/Creat Ratio 13.5 RATIO (10-20); Chloride 104 mmol/L (98-107); Cholesterol 92 mg/dL (200); Creatinine, Serum 0.81 mg/dL (0.55-1.02); EST Glomerular Filtration Rate 73 mL/min (>60); Est Glom Filt Rate - Afr Amer 88 mL/min (>60); Estimated Creatinine Clearance 47.46 ml/min; Glucose 96 mg/dL (74-106); High Density Lipoprotein 33 mg/dL; Magnesium 2.2 mg/dL (1.6-2.6); Phosphorus 2.1 mg/dL (2.5-4.9); Potassium 4.3 mmol/L (3.5-5.1); Sodium Level 137 mmol/L (136-145); Thyroid Stim Hormone (TSH) 0.11 uIU/mL (0.358-3.74); Triglycerides 55 mg/dL; Very Low Density Lipoprotein 11 mg/dL (5-40)
[2019-12-03] MEDS: Sucralfate 1 GM Tablet PO ×2 (09:06→11:57)
[2019-12-03] MEDS: Metoprolol Tartrate 25 MG Tablet PO (09:39)
[2019-12-03] MEDS: Calcium Carbonate 500 MG Tablet PO (09:39)
[2019-12-03] MEDS: Empagliflozin 10 MG Tablet PO (09:40)
[2019-12-03] MEDS: Azelastine HCl NASAL.SRY 1 SPRAY NASAL (09:40)
[2019-12-03] MEDS: LINAGLIPTIN 5 MG TABLET PO (09:41)
[2019-12-03] MEDS: Magnesium Oxide 400 MG Tablet PO (09:41)
[2019-12-03] MEDS: Pantoprazole Sodium 40 MG Tablet PO (09:41)
[2019-12-03] MEDS: Lubiprostone 24 MCG Capsule PO (09:41)
[2019-12-03] MEDS: dilTIAZem CD 180 MG Capsule PO (09:42)
[2019-12-03] MEDS: Lisinopril 40 MG Tablet PO (09:43)
[2019-12-03] MEDS: Insulin Lispro 100 UNIT/ML INSULN.PEN 10 UNIT SC (09:46)
--- NOTE | 2019-12-03 10:11 | PCM.DC ---
- Discharge Diagnoses Current Active Problems: Current Active and Chronic Problems (Last Reviewed 12/02/19 @ 10:[address] Kadie Skaggs, DO) Microcytic anemia (Acute) Hypokalemia (Acute) Hyperlipidemia (Chronic) Thyroid goiter (Chronic) GERD (gastroesophageal reflux disease) (Chronic) Colon polyp (Chronic) removed with a hot snare in Jul 2018....tubular adenoma Diabetic retinopathy (Chronic) Lumbar spinal stenosis (Chronic) Severe stenosis at L3-4 and L4-[address] scan of the lumbar spine in October 2019 Foraminal stenosis of lumbar region (Acute) You will use the following diet at home:: Calorie/Carbohydrate Controlled (specify 1200, 1400, etc) - 1800, Cardiac Your food should be the consistency of: Regular Call your doctor if you observe: Shortness of breath, Chest pain Allergies/Adverse Reactions: Allergies amoxicillin Allergy (Verified 12/02/19 08:28) YEAST INFECTION cephalexin monohydrate [From Keflex] Allergy (Verified 12/02/19 08:28) Rash clopidogrel bisulfate [From Plavix] Allergy (Verified 12/02/19 08:28) Other cloth tap Allergy (Uncoded 12/02/19 08:28) Other Medications to take at Discharge Lisinopril [Zestril] 40 mg PO BID 12/25/14 Aspirin [Aspirin, Baby] 81 mg PO DAILY@0800 01/21/16 Astepro 1 - 2 sprays NASAL BID 01/21/16 Sitagliptin Phosphate [Januvia] 50 mg PO DAILY 01/21/16 budesonide-formoterol HFA 160 mcg-4.5 mcg/actuation aerosol inhaler 2 puff INHALATION BID g 01/12/18 sodium chloride 0.65 % nasal spray aerosol 1 spray INTRANASAL Q2H PRN PRN 01/12/18 Albuterol Inhaler [Ventolin Hfa] 2 puff INHALATION Q4H PRN PRN 08/16/18 Calcium Carbonate 600 mg PO DAILY 08/16/18 Cod Liver Oil 1 tab PO BREAKFAST 08/16/18 Diltiazem HCl [Cardizem LA] 180 mg PO DAILY 08/16/18 Ferrous Gluconate 325 mg PO DAILY 08/16/18 Lubiprostone [Amitiza] 24 mcg PO BIDCM 08/16/18 Magnesium Oxide [Mag-Ox 400] 400 mg PO BID 08/16/18 Metoprolol Tartrate [Lopressor (beta jefe)] 25 mg PO BID 08/16/18 Pravastatin Sodium 20 mg PO QHS 08/16/18 Psyllium [Metamucil] 1 ea PO Q4H 08/16/18 Cholecalciferol (VIT D3) [Vitamin D3] 50 mcg PO DAILY 12/02/19 Empagliflozin [Jardiance] 10 mg PO DAILY 12/02/19 Insulin Aspart [Novolog Vial] 16 unit SQ BIDCM 12/02/19 Insulin Detemir [Levemir FlexPen] 46 units SUBCUT BIDCM 12/02/19 Pantoprazole Sodium [Protonix] 40 mg PO DAILY 12/02/19 Polyethylene Glycol 3350 [Miralax] 0.5 ea PO TIDCM 12/02/19 Potassium Chloride 40 meq PO BID 12/02/19 Ranitidine [Zantac] 300 mg PO DAILY 12/02/19 Sennosides/Docusate Sodium [Senna-Docusate Sodium Tablet] 1 ea PO BID 12/02/19 Vit C/Ascorb Sod/Multivit-Min [Emergen-C 500 mg Chewable Tab] 250 mg PO DAILY 12/02/19 Orders to be completed after discharge: CBC W/Diff, Automated Time Frame: 1 Week, Facility: [facility], Location: Laboratory Primary Care Physician: Ramone Smiley MD [Primary Care Provider] - Within 1 Week Test Results: Test results from this visit will be discussed in further detail at your follow-up appointment, if applicable.
--- NOTE | 2019-12-03 10:13 | DS.PCM_ITS ---
Discharge Date and Diagnosis - Problem List Patient Problems: Active and Suspected Problems (Last Reviewed 12/02/19 @ 10:[address] Kadie Skaggs DO) Microcytic anemia (Acute) Hypokalemia (Acute) Foraminal stenosis of lumbar region (Acute) Date of Admission: 12/02/19 Date of Discharge: 12/03/19 - Primary Discharge Diagnosis Active and Suspected Problems (Last Reviewed 12/02/19 @ 10:[address] Kadie Skaggs DO) Microcytic anemia (Acute) Hypokalemia (Acute) Foraminal stenosis of lumbar region (Acute) - Secondary Discharge Diagnosis Chronic Problems (Last Reviewed 12/02/19 @ 10:[address] Kadie Skaggs DO) Neurogenic bladder (Chronic) Hyperlipidemia (Chronic) Thyroid goiter (Chronic) GERD (gastroesophageal reflux disease) (Chronic) Colon polyp (Chronic) removed with a hot snare in Jul 2018....tubular adenoma Diabetic retinopathy (Chronic) Lumbar spinal stenosis (Chronic) Severe stenosis at L3-4 and L4-[address] scan of the lumbar spine in October 2019 Former smoker (Chronic) Iron deficiency anemia (Chronic) Chronic renal failure, stage 3 (moderate) (Chronic) Urine retention (Chronic) Aortic stenosis (Chronic) valve area in 2014 was 1.7cm2 COPD (chronic obstructive pulmonary disease) (Chronic) History of constipation (Chronic) Hx of venous thrombosis and embolism (Chronic) History of malignant neoplasm of breast (Chronic) lumpectomy in 2003 Hypertension (Chronic) Type 2 diabetes mellitus (Chronic) Asthma (Chronic) Hospital Course and Treatment Imaging Results: Clinical Impression(s) from Imaging Studies Chest X-Ray 12/02/19 08:31 IMPRESSION: Borderline cardiomegaly. Blunting of the left costophrenic angle Electronically Signed: Robert Randall, at 9:17 EDT , Service support , Operations: None Procedures: None Summary of Care Provided: The patient is a 74 year old F presents with a myriad of symptoms, including: Dizziness, weakness, chest pain, shortness of breath. Presented to the emergency room and was found to have a hemoglobin of 5.1. This is a 74-year-old -[place] female who has a history of microcytic anemia and has had endoscopies before that has shown no positive findings. Patient was brought in and transfused 2 units of packed red blood cells. After receiving the 2 units of packed red blood cells, patient symptoms have abated. Patient has been able to go up to the bathroom without any other symptoms and the weakness has since resolved. Patient does have known coronary disease and patient be transfused another unit as her hemoglobin is currently in 7.7 and the goal for patient with underlying coronary artery disease is to have a hemoglobin of 8 or greater. Given the chest pain is felt that this was due to her anemia and her troponins were unremarkable and initially was plan for the patient have a stress test but that was canceled given the acute issues patient had. Patient is otherwise feeling fine having no further chest pain. Patient will need to have her hemoglobin checked in the coming week to see if she would require transfusions. I suspect that the patient will require intermittent transfusions and if we could catch shows before the patient may require being hospitalized would be more preferable. [] Patient Problems: Active and Suspected Problems (Last Reviewed 12/02/19 @ 10:[address] Kadie Skaggs, ) Microcytic anemia (Acute) Hypokalemia (Acute) Foraminal stenosis of lumbar region (Acute) - Physical Exam Vitals/I&O's: Vital Signs Temp Pulse Resp BP Pulse Ox 37.3 C 88 16 134/67 H 98 12/03/19 09:33 12/03/19 09:39 12/03/19 09:33 12/03/19 09:33 12/03/19 09:33 Oxygen Flow Rate (L/min) 2 Oxygen Delivery Method Nasal Cannula Weight: 77.5 kg Body Mass Index (BMI) 30.2 Intake and Output for Last 24 Hours 12/01/19 12/02/19 12/03/19 23:59 23:59 23:59 Intake Total 1145 / 1445 300 / 300 Output Total 800 / 800 850 / 850 Balance 345 / 645 -550 / -550 General: Alert, No apparent distress HEENT: Atraumatic, Normocephalic Oral: Moist Mucosa, No Gingival or Mucosal Lesions/ Ulcerations Neck: No Nodes, Trachea Midline Lungs: Clear to auscultation, Normal air movement, No rhonchi, No wheeze Cardiovascular: Regular rate, Regular Rhythm, Normal S1, Normal S2, No murmurs Abdomen: Bowel Sounds Present, Soft, Non Tender, Non-Distended, No Hepato- splenomegaly Extremities: No edema, No Calf Tenderness Microbiology Past 72 Hours 12/03/19 05:00 Stool Stool Occult Blood (MAHESH) - Final Laboratory Results 12/02/19 08:30: Immature Plt Fraction 9.2 H, Retic Count 2.38 H, Immature Retic Fraction 33.10 H, Retic Hgb Equivalent 18.2 L 12/02/19 09:15: Blood Type B POSITIVE, Antibody Screen NEGATIVE, Crossmatch See Detail 12/02/19 09:15: Crossmatch See Detail 12/02/19 10:40: Magnesium 2.2, Total Bilirubin 0.20, Direct Bilirubin 0.10, AST 30, ALT 33, Alkaline Phosphatase 98, Total Protein 7.1, Albumin 2.6 L, Globulin 4.5 H 12/02/19 10:40: PT 15.5 H, INR 1.2, APTT 25.4 12/02/19 10:40: Hemoglobin A1c 11.0 H 12/02/19 10:40: Hgb 5.1 L*, Hct 17.9 L, Diff Path Review December12/02/19 10:48: Troponin I < 0.015 12/02/19 12:57: POC Glucose 217 H 12/02/19 14:15: Troponin I 0.034 12/02/19 16:33: POC Glucose 252 H 12/02/19 19:00: Urine Color Yellow, Urine Clarity Clear, Urine pH 5.0, Ur Specific [place] 1.020, Urine Protein 30 H, Urine Glucose (UA) 1000 H, Urine Ketones Negative, Urine Occult Blood Negative, Urine Nitrite Negative, Urine Bilirubin Negative, Urine Urobilinogen Normal, Ur Leukocyte Esterase Negative, Urine RBC 0 SEEN, Urine WBC 0-5 SEEN, Ur Squamous Epith Cells 0-5 SEEN, Urine Bacteria 4+, Urine Mucus 0 SEEN, Urine Yeast 1+ 12/02/19 22:28: POC Glucose 171 H 12/02/19 23:36: Hgb 7.1 L, Hct 24.0 L 12/03/19 06:23: WBC 11.0, RBC 3.39 L, Hgb 7.7 L, Hct 25.4 L, MCV 74.9 L, MCH 22.7 L, MCHC 30.3 L D, RDW Std Deviation 52.9 H, RDW Coeff of Vijay 19.5 H, Plt Count 274, MPV 11.2, Immature Gran % (Auto) 0.500, Neut % (Auto) 75.4 H, Lymph % (Auto) 14.4 L, Schleicher % (Auto) 7.9, Eos % (Auto) 1.3, Baso % (Auto) 0.5, Absolute Neuts (auto) 8.3 H, Absolute Lymphs (auto) 1.58, Nucleated RBC % 0.4 12/03/19 06:23: Sodium 137, Potassium 4.3, Chloride 104, Carbon Dioxide 30.0, Anion Gap 3 L, BUN 11, Creatinine 0.81, Estim Creat Clear Calc 47.46, Est GFR (MDRD) Af Amer 88, Est GFR (MDRD) Non-Af 73, BUN/Creatinine Ratio 13.5, Glucose 96, Calcium 10.0, Phosphorus 2.1 L, Magnesium 2.2, Triglycerides 55, Cholesterol 92, LDL Cholesterol 48, VLDL Cholesterol 11, HDL Cholesterol 33 L, TSH 0.11 L 12/03/19 08:01: POC Glucose 84 Current Medications Acetaminophen (Tylenol) 650 mg PO Q6H PRN PRN PRN Reason: Pain Score 1-10/Temp > 100.7 F Last Admin: 12/02/19 16:31 Dose: 650 mg Documented by: Albuterol Sulfate (Ventolin Aerosols) 2.5 mg INHALATION Q4H PRN PRN Reason: Wheezing Albuterol Sulfate (Ventolin Aerosols) 2.5 mg INHALATION Q6HWA.RT [facility] Last Admin: 12/03/19 07:38 Dose: 2.5 mg Documented by: Atorvastatin Calcium (Lipitor) 40 mg PO QHS [facility] Last Admin: 12/02/19 22:29 Dose: 40 mg Documented by: Azelastine HCl (Astelin) 1 spray NASAL BID [facility] Last Admin: 12/03/19 09:40 Dose: 1 spray Documented by: Bisacodyl (Dulcolax) 5 mg PO DAILY PRN PRN PRN Reason: Constipation Budesonide (Pulmicort Aerosol) 0.5 mg INHALATION Q12H.RT [facility] Last Admin: 12/03/19 07:38 Dose: 0.5 mg Documented by: Calcium Carbonate (Tums) 500 mg PO DAILY@0800 [facility] Last Admin: 12/03/19 09:39 Dose: 500 mg Documented by: Diltiazem HCl (Cardizem Cd) 180 mg PO DAILY [facility] Last Admin: 12/03/19 09:42 Dose: 180 mg Documented by: Empagliflozin (Jardiance) 10 mg PO DAILY [facility] Last Admin: 12/03/19 09:40 Dose: 10 mg Documented by: Ergocalciferol (Vitamin D) 50,000 unit PO Q7D [facility] Last Admin: 12/02/19 12:59 Dose: 50,000 unit Documented by: Glucagon () 1 mg IM .X1 PRN PRN Reason: Hypoglycemia Dextrose (Dextrose 10%-Water) 250 mls @ 999 mls/hr IV .Q16M PRN; Protocol PRN Reason: HYPOGLYCEMIA Insulin Glargine (Lantus ([facility])) 20 units SC BID [facility] Last Admin: 12/03/19 09:46 Dose: 20 u Documented by: Insulin Human Lispro (Humalog Kwikpen ([facility] Last Admin: 12/03/19 09:46 Dose: 10 u Documented by: Linagliptin (Tradjenta) 5 mg PO DAILY [facility] Last Admin: 12/03/19 09:41 Dose: 5 mg Documented by: Lisinopril (Zestril) 40 mg PO DAILY [facility] Last Admin: 12/03/19 09:43 Dose: 40 mg Documented by: Lubiprostone (Amitiza) 24 mcg PO BID [facility] Last Admin: 12/03/19 09:41 Dose: 24 mcg Documented by: Magnesium Oxide (Mag-Ox 400) [facility] Last Admin: 12/03/19 09:41 Dose: 400 mg Documented by: Melatonin (Melatonin) 3 mg PO QHS PRN PRN PRN Reason: INSOMNIA Metoprolol Tartrate (Lopressor (Beta Sunshine)) 25 mg PO BID [facility] Last Admin: 12/03/19 09:39 Dose: 25 mg Documented by: Nitroglycerin (Nitrostat) 0.4 mg SUBLINGUAL Q5M PRN PRN Reason: CHEST PAIN Ondansetron HCl (Zofran) 4 mg IV Q8H PRN PRN PRN Reason: NAUSEA/VOMITING Pantoprazole Sodium (Protonix) 40 mg PO DAILY [facility] Last Admin: 12/03/19 09:41 Dose: 40 mg Documented by: Polyethylene Glycol (Miralax) 17 gm PO DAILY@1700 [facility] Last Admin: 12/02/19 16:33 Dose: 17 gm Documented by: Potassium Chloride (K-Dur) 40 meq PO BIDCM [facility] Last Admin: 12/03/19 09:40 Dose: 40 meq Documented by: Psyllium Hydrophilic Mucilloid (Metamucil) 1 packet PO DAILY [facility] Last Admin: 12/03/19 09:38 Dose: Not Given Documented by: Senna/Docusate Sodium (Senokot-S, Sydnie-Colace) 1 tablet PO BID [facility] Last Admin: 12/03/19 09:38 Dose: Not Given Documented by: Sodium Chloride () 10 - 40 ml IV UD PRN PRN Reason: SALINE FLUSH Sucralfate (Carafate) 1 gm PO 1HR_ACHS [facility] Last Admin: 12/03/19 09:06 Dose: 1 gm Documented by: Discharge Diet: 1600 Calorie Control Diet Call your doctor if you observe: Shortness of breath, Chest pain Home Medications: Medications to take at Discharge Lisinopril [Zestril] 40 mg PO BID 12/25/14 Aspirin [Aspirin, Baby] 81 mg PO DAILY@0800 01/21/16 Astepro 1 - 2 sprays NASAL BID 01/21/16 Sitagliptin Phosphate [Januvia] 50 mg PO DAILY 01/21/16 budesonide-formoterol HFA 160 mcg-4.5 mcg/actuation aerosol inhaler 2 puff INHALATION BID g 01/12/18 sodium chloride 0.65 % nasal spray aerosol 1 spray INTRANASAL Q2H PRN PRN 01/12/18 Albuterol Inhaler [Ventolin Hfa] 2 puff INHALATION Q4H PRN PRN 08/16/18 Calcium Carbonate 600 mg PO DAILY 08/16/18 Cod Liver Oil 1 tab PO BREAKFAST 08/16/18 Diltiazem HCl [Cardizem LA] 180 mg PO DAILY 08/16/18 Ferrous Gluconate 325 mg PO DAILY 08/16/18 Lubiprostone [Amitiza] 24 mcg PO BIDCM 08/16/18 Magnesium Oxide [Mag-Ox 400] 400 mg PO BID 08/16/18 Metoprolol Tartrate [Lopressor (beta sunshine)] 25 mg PO BID 08/16/18 Pravastatin Sodium 20 mg PO QHS 08/16/18 Psyllium [Metamucil] 1 ea PO Q4H 08/16/18 Cholecalciferol (VIT D3) [Vitamin D3] 50 mcg PO DAILY 12/02/19 Empagliflozin [Jardiance] 10 mg PO DAILY 12/02/19 Insulin Aspart [Novolog Vial] 16 unit SQ BIDCM 12/02/19 Insulin Detemir [Levemir FlexPen] 46 units SUBCUT BIDCM 12/02/19 Pantoprazole Sodium [Protonix] 40 mg PO DAILY 12/02/19 Polyethylene Glycol 3350 [Miralax] 0.5 ea PO TIDCM 12/02/19 Potassium Chloride 40 meq PO BID 12/02/19 Ranitidine [Zantac] 300 mg PO DAILY 12/02/19 Sennosides/Docusate Sodium [Senna-Docusate Sodium Tablet] 1 ea PO BID 12/02/19 Vit C/Ascorb Sod/Multivit-Min [Emergen-C 500 mg Chewable Tab] 250 mg PO DAILY 12/02/19 Other Amb Orders: CBC W/Diff, Automated Time Frame: 1 Week, Facility: [facility], Location: Laboratory Primary Care Physician: Ramone Smiley MD [Primary Care Provider] - Within 1 Week Disposition: Home Minutes spent on discharge:: 35 Patient Condition:: Fair Medical Necessity - Tobacco Use Smoking Status: Former smoker Tobacco Use: Non-smoker Meaningful Use Info Meaningful Use Diagnoses (Choose all that apply): None applicable OBSV E&M: 17563 Observation care discharge
[2019-12-03 11:37] LABS: Free T3 2.1 pg/mL (2.18-3.98); T4 Free Direct 1.01 ng/dL (0.76-1.46)
[2019-12-03 12:06] LABS: Bedside Glucose 124 mg/dL (70-110)
[2019-12-05 11:15] LABS: Pathologist Review Reviewed
[2019-12-05 11:15] LABS: Pathologist Review Reviewed
== END 2019-12-03 17:21 | disposition home or self-care (01) | DRG 812 ==
LOC: ED 09:23 → PCU 09:51
PROVIDERS: Admitting Provider Internal Medicine; Emergency Provider Emergency Medicine; PCP Family Medicine
DX: D50.9 Iron deficiency anemia, unspecified (principal); E87.1 Hypo-osmolality and hyponatremia; E87.6 Hypokalemia; E78.5 Hyperlipidemia, unspecified; K21.9 Gastro-esophageal reflux disease without esophagitis; E11.319 Type 2 diabetes mellitus with unspecified diabetic retinopathy without macular edema; N18.3 Chronic kidney disease, stage 3 (moderate); E11.22 Type 2 diabetes mellitus with diabetic chronic kidney disease; I12.9 Hypertensive chronic kidney disease with stage 1 through stage 4 chronic kidney disease, or unspecified chronic kidney disease; D63.1 Anemia in chronic kidney disease; J44.9 Chronic obstructive pulmonary disease, unspecified; Z86.718 Personal history of other venous thrombosis and embolism; Z85.3 Personal history of malignant neoplasm of breast; Z87.891 Personal history of nicotine dependence; Z79.82 Long term (current) use of aspirin; Z79.899 Other long term (current) drug therapy; Z79.51 Long term (current) use of inhaled steroids; Z79.4 Long term (current) use of insulin; Z86.711 Personal history of pulmonary embolism; M48.062 Spinal stenosis, lumbar region with neurogenic claudication; E11.51 Type 2 diabetes mellitus with diabetic peripheral angiopathy without gangrene; E04.9 Nontoxic goiter, unspecified; I25.10 Atherosclerotic heart disease of native coronary artery without angina pectoris
CPT/HCPCS: 36415; 71045; 80048; 80061; 80076; 81001; 82274; 82728; 82962; 83036; 83540; 83550; 83735; 84100; 84439; 84443; 84481; 84484; 85014; 85018; 85025; 85027; 85045; 85610; 85730; 86850; 86900; 86901; 86920; 86922; 87086; 87088; 93005; 94640; 97162; 97166; 97530; 97802; 99251; 99285; J1756; J7030; J7040; P9016; A4216; G0463; J2785

== ENCOUNTER → 2019-12-05 | Outpatient (CLI) | payer MEDICARE, SELFPAY ==
[2019-12-02 10:40] VITALS: BMI 30.2
[2019-12-05 14:52] LABS: Basophil# 0.04 X10^3/uL; Basophil% 0.4 % (0-1); Eosinophil# 0.24 X10^3/uL; Eosinophils% 2.3 % (0-5); Hematocrit 32.9 % (37-47); Hemoglobin 9.9 g/dL (12.0-15.0); Lymphocyte % 21.3 % (19-41); Mean Corp Hgb Conc 30.1 g/dL (32-36); Mean Corpuscular Hgb 23.7 pg (27.0-32.0); Mean Corpuscular Volume 78.9 fL (81-99); Mean Platelet Vol. 10.8 fl (6.2-12.0); Monocyte# 0.82 X10^3/uL; Monocyte% 7.9 % (0-10); NRBC Flagged by Analyzer 0 % (0-5); Neutrophil # 6.96 X10^3/uL (2.7-7.7); Neutrophil % 67.5 % (47-70); POSITIVE MORPHOLOGY YES; Platelet Count 296 K/mm3 (150-450); RBC Distribution Width CV 22.3 % (11.6-14.6); RBC Distribution Width SD 61.1 fl (35.1-43.9); Red Blood Count 4.17 M/mm3 (4.2-5.4); White Blood Count 10.3 K/mm3 (4.4-11.0)
[2019-12-05 14:54] LABS: Differential Indicated SCAN CRITERIA MET
[2019-12-05 15:13] LABS: Anisocytosis 2+; Differential Comment SCANNED; Macrocytosis 1+; Microcytosis 1+; Polychromasia 1+; Target Cells 1+
== END | disposition home or self-care (01) ==
LOC: MTLAB 13:54
PROVIDERS: PCP Family Medicine
DX: D50.0 Iron deficiency anemia secondary to blood loss (chronic) (principal)
CPT/HCPCS: 36415; 85025

== ENCOUNTER → 2020-01-03 | Outpatient (CLI) | payer MEDICARE, SELFPAY ==
[2019-12-02 10:40] VITALS: BMI 30.2
[2020-01-03 14:47] LABS: Hematocrit 33.4 % (37-47); Hemoglobin 9.7 g/dL (12.0-15.0)
[2020-01-03 15:10] LABS: ALB/GLOB Ratio 0.7 RATIO (0.9-2.4); AST(SGOT) 26 U/L (15-37); Alanine Aminotransfer ALT/SGPT 35 U/L (13-56); Albumin, Serum 3.2 g/dL (3.2-5.0); Alkaline Phosphatase 112 U/L (45-117); Anion Gap 5 (5-15); BUN 11 mg/dL (7-18); Calcium,Total 10.7 mg/dL (8.5-10.1); Chloride 104 mmol/L (98-107); Creatinine, Serum 0.79 mg/dL (0.55-1.02); EST Glomerular Filtration Rate 76 mL/min (>60); Est Glom Filt Rate - Afr Amer 91 mL/min (>60); Ferritin 31 ng/mL (8-252); Globulin 4.4 g/dL (2.2-4.2); Glucose 99 mg/dL (74-106); Potassium 4.7 mmol/L (3.5-5.1); Protein, Total 7.6 g/dL (6.4-8.2); Sodium Level 138 mmol/L (136-145)
[2020-01-03 15:11] LABS: Hemoglobin A1c 8.7 % (4.2-6.3)
== END | disposition home or self-care (01) ==
LOC: MFPLAB 11:17
PROVIDERS: PCP Family Medicine; Visit Provider Family Medicine
DX: E11.49 Type 2 diabetes mellitus with other diabetic neurological complication (principal); D64.9 Anemia, unspecified
CPT/HCPCS: 36415; 80053; 82728; 83036; 84443; 85014; 85018

== ENCOUNTER 2020-02-03 06:52 | Day surgery (SDC) | payer MEDICARE, SELFPAY ==
[2020-01-24 13:04] VITALS: BMI 30.1
--- NOTE | 2020-01-25 08:10 | HP_ITS ---
Intake Vital Signs 01/24/20 Height 5 ft 3 in 01/24/20 Weight: 170 lb 01/24/20 BP 146/74 H 01/24/20 Blood Pressure Location Rt brachial 01/24/20 Position Sitting 01/24/20 Respiration 16 01/24/20 Pulse 78 01/24/20 Pulse Source Monitor 01/24/20 Temp 97.4 F L 01/24/20 Temp Source Temporal 01/24/20 Pulse Oximetry (%) 97 01/24/20 Oxygen Delivery Method room air 01/24/20 BMI 30.2 Intake Visit Reasons: EGD/Colonoscopy Chief Complaint: Chest pain, SOB Ophthalmologist Required: No Is patient in pain?: No Allergies amoxicillin Allergy (Verified 01/24/20 12:56) YEAST INFECTION cephalexin monohydrate [From Keflex] Allergy (Verified 01/24/20 12:56) Rash clopidogrel bisulfate [From Plavix] Allergy (Verified 01/24/20 12:56) Other cloth tap Allergy (Uncoded 01/24/20 12:56) Other Medications Lisinopril [Zestril] 40 mg PO BID 12/25/14 [History Confirmed 01/24/20] Aspirin [Aspirin, Baby] 81 mg PO DAILY@0800 01/21/16 [History Confirmed 01/24/20] Astepro 1 - 2 sprays NASAL BID 01/21/16 [History Confirmed 01/24/20] Sitagliptin Phosphate [Januvia] 50 mg PO DAILY 01/21/16 [History Confirmed 01/24/20] budesonide-formoterol HFA 160 mcg-4.5 mcg/actuation aerosol inhaler 2 puff INHALATION BID g 01/12/18 [History Confirmed 01/24/20] sodium chloride 0.65 % nasal spray aerosol 1 spray INTRANASAL Q2H PRN PRN 01/12/18 [History Confirmed 01/24/20] Albuterol Inhaler [Ventolin Hfa] 2 puff INHALATION Q4H PRN PRN 08/16/18 [History Confirmed 01/24/20] Calcium Carbonate 600 mg PO DAILY 08/16/18 [History Confirmed 01/24/20] Cod Liver Oil 1 tab PO BREAKFAST 08/16/18 [History Confirmed 01/24/20] Diltiazem HCl [Cardizem LA] 180 mg PO DAILY 08/16/18 [History Confirmed 01/24/20] Ferrous Gluconate 325 mg PO DAILY 08/16/18 [History Confirmed 01/24/20] Lubiprostone [Amitiza] 24 mcg PO BIDCM 08/16/18 [History Confirmed 01/24/20] Magnesium Oxide [Mag-Ox 400] 400 mg PO BID 08/16/18 [History Confirmed 01/24/20] Metoprolol Tartrate [Lopressor (beta jefe)] 25 mg PO BID 08/16/18 [History Confirmed 01/24/20] Pravastatin Sodium 20 mg PO QHS 08/16/18 [History Confirmed 01/24/20] Psyllium [Metamucil] 1 ea PO Q4H 08/16/18 [History Confirmed 01/24/20] Cholecalciferol (VIT D3) [Vitamin D3] 50 mcg PO DAILY 12/02/19 [History Confirmed 01/24/20] Empagliflozin [Jardiance] 10 mg PO DAILY 12/02/19 [History Confirmed 01/24/20] Insulin Aspart [Novolog Vial] 16 unit SQ BIDCM 12/02/19 [History Confirmed 01/24/20] Insulin Detemir [Levemir FlexPen] 46 units SUBCUT BIDCM 12/02/19 [History Confirmed 01/24/20] Pantoprazole Sodium [Protonix] 40 mg PO DAILY 12/02/19 [History Confirmed 01/24/20] Polyethylene Glycol 3350 [Miralax] 0.5 ea PO TIDCM 12/02/19 [History Confirmed 01/24/20] Potassium Chloride 40 meq PO BID 12/02/19 [History Confirmed 01/24/20] Ranitidine [Zantac] 300 mg PO DAILY 12/02/19 [History Confirmed 01/24/20] Sennosides/Docusate Sodium [Senna-Docusate Sodium Tablet] 1 ea PO BID 12/02/19 [History Confirmed 01/24/20] Vit C/Ascorb Sod/Multivit-Min [Emergen-C 500 mg Chewable Tab] 250 mg PO DAILY 12/02/19 [History Confirmed 01/24/20] furosemide 20 mg tablet 20 mg PO DAILY 01/24/20 [History Confirmed 01/24/20] gabapentin 300 mg capsule 300 mg PO QHS 01/24/20 [History Confirmed 01/24/20] glimepiride 2 mg tablet 2 mg PO DAILY 01/24/20 [History Confirmed 01/24/20] promethazine 12.5 mg tablet 12.5 mg PO Q6H PRN 01/24/20 [History Confirmed 01/24/20] roflumilast 500 mcg tablet 500 mcg PO DAILY 01/24/20 [History Confirmed 01/24/20] sertraline 50 mg tablet 50 mg PO DAILY 01/24/20 [History Confirmed 01/24/20] tiotropium bromide 18 mcg capsule with inhalation device 1 cap INHALATION DAILY 01/24/20 [History Confirmed 01/24/20] tramadol 50 mg tablet 50 mg PO Q8H PRN 01/24/20 [History Confirmed 01/24/20] [facility] Medical History Neurogenic bladder (Chronic) Microcytic anemia (Acute) Hypokalemia (Acute) Hyperlipidemia (Chronic) Thyroid goiter (Chronic) GERD (gastroesophageal reflux disease) (Chronic) Colon polyp (Chronic) Diabetic retinopathy (Chronic) Lumbar spinal stenosis (Chronic) Foraminal stenosis of lumbar region (Acute) Hypophosphatemia (Resolved) Hypercalcemia (Resolved) Former smoker (Chronic) UTI (urinary tract infection) (Resolved) Iron deficiency anemia (Chronic) Chronic renal failure, stage 3 (moderate) (Chronic) Urine retention (Chronic) Hyponatremia (Acute) Aortic stenosis (Chronic) COPD (chronic obstructive pulmonary disease) (Chronic) History of constipation (Chronic) Hx of venous thrombosis and embolism (Chronic) History of malignant neoplasm of breast (Chronic) Hypertension (Chronic) Type 2 diabetes mellitus (Chronic) Asthma (Chronic) Anemia (Acute) Asthma (Acute) COPD (chronic obstructive pulmonary disease) (Acute) Carpal tunnel syndrome of right wrist (Acute) Cellulitis and abscess of finger, unspecified (Acute) Chronic idiopathic constipation (Acute) Diabetes (Acute) GERD (gastroesophageal reflux disease) (Acute) Goiter, nontoxic, multinodular (Acute) Hypercholesteremia (Acute) Leg weakness, bilateral (Acute) Peripheral artery disease (Acute) Polypharmacy (Acute) Pruritus (Acute) Retinopathy (Acute) Rhinitis (Acute) Strain of right rotator cuff capsule (Acute) Urinary retention with incomplete bladder emptying (Acute) Vitamin D deficiency (Acute) Hypertension (Chronic) Surgical History History of Achilles tendon repair (Acute) History of lumpectomy of left breast (Acute) Retinopathy (Acute) Family History Daughter Breast cancer Father Hypertension Sister Cancer Kidney disease Mother Pancreatic cancer Social History (Updated 01/25/20 @ 08:[address] Tomasz Umaña MD) household members: spouse Smoking Status: Former smoker alcohol intake: never substance use type: does not use caffeine: Yes seatbelt use: always HPI HPI HPI: OLGA DONALDSON, is a 75 F who presents to the office today for HPI HPI Surgical H&P: Yes HPI: OLGA DONALDSON, is a 75 F who presents to the office today for Anemia. The patient has not noted any gross blood in her stool or abdominal pain. She has been on iron supplementation. She was anemic in August and then presented to the hospital in November with severe anemia. She was transfused at that time and her hemoglobin came back up to 9 and it was rechecked in early December and it was still 9. Patient is not having any nausea or vomiting or hematemesis. Patient has begun parenteral iron. ROS General General: No weight change, appetite, fatigue, colon cancer, breast cancer or weakness Endo Endocrine: Yes diabetes mellitus; no thyroid disease, thyroid cancer, Hair loss, heat intolerance or cold intolerance Skin Skin: No rash or changing moles Musc Musculoskeletal: Yes back problems; no arthritis, rheumatoid arthritis, gout or joint pain Cardio Cardiovascular: Yes murmur and high blood pressure; no pacemaker, heart disease, atrial fibrillation, heart attack, heart stent, palpitations, shortness of breat with exertion or chest pain Psych Psychiatric: No depression, anxiety or hearing voices Resp Respiratory: Yes shortness of breath, No sleep apnea, No cough, Yes COPD, Yes asthma, No emphysema, No wheezing Gastro Gastrointestinal: No abdominal pain, No nausea or vomiting, No diarrhea, Yes constipation, No blood in stool, No acid reflux, No hemorrhoids, No ulcers, No gallbladder problem, No black,tarry stools Jason Hematologic: Yes blood thinners, No blood disorders, No bleeding, Yes anemia, No blood clots Neuro Neurologic: No system reviewed and no additional complaints, except as docu, No as per HPI, No abnormal walking, No abnormal hearing, No abnormal movements, No abnormal speech, No behavioral changes, No burning sensations, No confusion, No seizure-like activity, No unsteadiness, No dizziness, No localized weakness, No frequent falls, No headache(s), No lack of coordination, No loss of vision, No memory loss, No numbness, No other visual disturbances, No radiating pain, No restless legs, No sensory deficit, No fainting, No tingling, No tremor(s), No weakness, No other Exam Const General: cooperative Orientation: alert, oriented x3 Resp Effort & Inspection: normal respiratory effort Auscultation: clear to auscultation bilaterally Cardio Rate: regular rate Rhythm: regular rhythm Heart Sounds: murmur GI Inspection: non-distended Palpation: soft, nontender Assessment & Plan Problems 1. Microcytic anemia D50.9 Plan The patient had a very low hemoglobin in November which improved with transfusion. Her hemoglobin was stable between November and December. She is reporting no gross blood in her stool or abdominal pain. She had a colonoscopy 1.5 years ago. The colonoscopy revealed a polyp that was small. At this time I believe would be more risk than benefit to perform a colonoscopy due to her tortuous colon and need for extensive bowel prep. I discussed this with Dr. Rolle and he agrees. I will perform an EGD to rule out stomach pathology. I believe her problem may be malabsorption and that is what is causing her iron deficiency anemia. The odds of having an malignancy in the colon after a normal colonoscopy 1.5 years ago are very slim. I discussed this with her and she would like to only perform the EGD. I explained endoscopy in detail to the patient. I explained the risks including but not limited to stroke or heart attack with anesthesia, perforation of the GI tract, bleeding, infection. I explained that any of these could necessitate further emergency surgery. The patient understands and all questions were answered sufficiently. The patient wishes to proceed with procedure. We discussed the current risks associated with COVID-19. While it is understood that there is a community spread of COVID-19, the risk of wero COVID-19 while at [facility] ([facility]) is very low; however, the risk cannot be completely mitigated because of the community spread of the disease. We discussed in detail the risk of exposure to and/or potential harm posed by the COVID-19 virus with having a surgery/procedure at this time versus the risk of delaying the surgery/procedure. It is not possible to know either the risk of delaying the surgery or procedure or chance of getting an infection with perfect accuracy, but a joint decision was made to proceed at this time with the scheduled surgery/procedure as indicated on the consent form. Patient was notified that we will need to comply with any screening or testing [facility] wishes to perform or that surgery may be delayed for any positive results. Tomasz Umaña MD Pager: [facility] [address] [place] [address], [address] [place] [address] Office: Orders Orders: EGD Today D50.9 Coding Level of Care Code Off vis,est,level 3 Diagnoses Microcytic anemia D50.9 01/25/20 0810 <Electronically signed by Tomasz heredia MD> Date _ Tomasz Umaña MD I have re-examined the patient. There are no clinical changes since date of exam.
[2020-02-02 11:59] LABS: Probe Check PASS; Specimen Processing Control PASS
[2020-02-03] VITALS (7 sets, daily range): BP systolic 111–145; BP diastolic 41–53; PULSE 62–66; RESP 16; TEMP 36.3–36.6; O2SAT 96–100; BMI 29.7
--- NOTE | 2020-02-03 | IMM_PTH ---
PATIENT: OLGA DONALDSON LOC: [facility] U#:[id number] AGE/SX: 75/F ROOM: RE02/03/[address]: Dr. Tomasz Umaña MD : 1945 BED: DIS: 02/03/2020 SPEC #: [id number] RECD: 02/06/20 09:51 STATUS: HARIS KILO #: [id number] HUSSEIN: 02/03/20 00:[address]: Tomasz Umaña DEPT: IMMUNOHISTOCHEMISTRY RECD BY: Chasidy Yoo ENTERED: 02/06/20 09:51 SP TYPE: IMMUNO OTHR DR: Dr. Ramone Smiley MD Tissues: Stomach, NOS Procedures: H Pylori (initial) P53 (add) PHYSICIAN & INSTITUTION [place] [address] SPECIMEN INFORMATION: Tissue Source: Gastric ulcer biopsy Clinical Info: Anemia Specimen Number: [id number] CPT code: 23892, 04781 METHODOLOGY: Deparaffinized sections of prefer/formalin-fixed tissue or PAP/DQ stained slides are incubated with monoclonal/polyclonal antibodies/oligonucleotide probes. Localization is made via biotin free immunoperoxidase method. Appropriate controls are performed and reacted as expected. Results on target cell population are indicated in the following table: RESULTS: ANTIBODY / CLONE RESULT H Pylori (polyclonal) negative P53 (DO-7) negative These tests were developed and their performance characteristics determined by [facility]. They may not have been cleared or approved by the U.S. Food and Drug Administration. The FDA has determined that such clearance or approval is not necessary. The above immunohistochemical/dualISH markers are ordered and reviewed by the pathologist. INTERPRETATION: Gastric ulcer, biopsy: Negative for Helicobacter pylori organisms. Negative for dysplasia. SJ:raimundo 02/07/20
[2020-02-03 07:50] LABS: Bedside Glucose 193 mg/dL (70-110)
[2020-02-03] MEDS: Lactated Ringers 1,000 ML 100 ML IV (07:59)
--- NOTE | 2020-02-03 08:00 | EGD_PTH ---
PATIENT: OLGA DONALDSON LOC: EN U#:[id number] AGE/SX: 75/F ROOM: RE02/03/[address]: Dr. Tomasz Umaña MD : 1945 BED: DIS: 02/03/2020 SPEC #: [id number] RECD: 02/03/20 13:13 STATUS: HARIS KILO #: [id number] HUSSEIN: 02/03/20 08:[address]: Tomasz Umaña DEPT: SURGICAL PATHOLOGY RECD BY: Gilma Fragoso ENTERED: 02/06/20 08:47 SP TYPE: EGD BIOPSY OTHR DR: Dr. Ramone Smiley MD Tissues: Gastric mucous membrane Procedures: Special Stain Group II Surgery Specimen Level IV Alcian Blue/PAS (control) HEADER OPERATION: EGD ([facility] [place] PRE-OP DIAGNOSIS: Anemia TISSUE SUBMITTED: Gastric ulcer biopsy for histo and H. pylori MICROSCOPIC DIAGNOSIS Gastric ulcer, biopsy: Fragments of gastric mucosa with acute and chronic inflammation and granulation tissue reaction. Extensive goblet cell metaplasia (intestinal metaplasia). Reactive epithelial changes. See comment. TANYA:raimundo 02/07/20 COMMENT Correlation with clinical, endoscopic findings and appropriate follow up are necessary. The results of immunohistochemistry for Helicobacter pylori will be reported separately ([id number]). Alcian blue/PAS stain with matched control is used in the evaluation of the specimen. Case has been reviewed in consultation with Dr. Brown who concurs with the above diagnosis. IDC:AM MICROSCOPIC DESCRIPTION Slides are reviewed. GROSS DESCRIPTION Received in fixative is one container labeled with the patient's name and designated gastric ulcer biopsy. The specimen consists of multiple irregular fragments of light garcía soft tissue that in aggregate measure 0.6 x 0.3 x 0.1 cm. The specimen is totally submitted in one cassette. / AM:raimundo 02/06/20 TC:2 CPT: 14018, 21034
--- NOTE | 2020-02-03 08:21 | OP.EGD_ITS ---
Patient Name: Juana Pollard Procedure Date: 02/03/2020 7:55 AM Date of : 1945 Age: 75 Procedure: Upper GI endoscopy Indications: Iron deficiency anemia Providers: Tomasz Umaña MD Medicines: Monitored Anesthesia Care Patient Profile: This is a 75 year old female. Refer to note in patient chart for documentation of history and physical. Complications: No immediate complications. Estimated blood loss: Minimal. Procedure: Pre-Anesthesia Assessment: - Prior to the procedure, a History and Physical was performed, and patient medications and allergies were reviewed. The patient's tolerance of previous anesthesia was also reviewed. The risks and benefits of the procedure and the sedation options and risks were discussed with the patient. All questions were answered, and informed consent was obtained. Prior Anticoagulants: The patient has taken no previous anticoagulant or antiplatelet agents. After reviewing the risks and benefits, the patient was deemed in satisfactory condition to undergo the procedure. After obtaining informed consent, the endoscope was passed under direct vision. Throughout the procedure, the patient's blood pressure, pulse, and oxygen saturations were monitored continuously. The gastroscope was introduced through the mouth, and advanced to the second part of duodenum. The upper GI endoscopy was accomplished without difficulty. The patient tolerated the procedure well. Scope In: 8:08:21 AM Scope Out: 8:12:15 AM Total Procedure Duration Time 0 hours 3 minutes 54 seconds Findings: One non-bleeding cratered gastric ulcer with no stigmata of bleeding was found in the prepyloric region of the stomach. Biopsies were taken with a cold forceps for histology. Biopsies were taken with a cold forceps for Helicobacter pylori testing. The [Site] was normal. The examined duodenum was normal. Impression: - Non-bleeding gastric ulcer with no stigmata of bleeding. Biopsied. - Normal [Location]. - Normal examined duodenum. Recommendation: - Resume regular diet. - Continue present medications. Procedure Code(s): --- Professional --- 73108, Esophagogastroduodenoscopy, flexible, transoral; with biopsy, single or multiple Diagnosis Code(s): --- Professional --- K25.9, Gastric ulcer, unspecified as acute or chronic, without hemorrhage or perforation D50.9, Iron deficiency anemia, unspecified CPT copyright 2017 [employer]. All rights reserved. The codes documented in this report are preliminary and upon upholstery technician review may be revised to meet current compliance requirements. Tomasz Umaña MD 02/03/2020 8:21:01 AM This report has been signed electronically. Number of Addenda: 0 Note Initiated On: 02/03/2020 7:55 AM
--- NOTE | 2020-02-03 08:21 | OP.CCLET_ITS ---
02/03/2020 Ramone Smiley [address] [place] [address] Re : Upper GI endoscopy procedure for Juana Pollard Dear Dr. Smiley This procedure was performed on Monday, February 03, 2020. My impressions and recommendations are as follows: Impressions : - Non-bleeding gastric ulcer with no stigmata of bleeding. Biopsied. - Normal [Location]. - Normal examined duodenum. Recommendations : - Resume regular diet. - Continue present medications. My findings are described in the full procedure note, which is enclosed. If I can be of further assistance, please feel free to contact me at Doctor phone number(s): , Work: . Sincerely, Tomasz Umaña MD 02/03/2020 8:21:01 AM This report has been signed electronically.
== END 2020-02-03 09:14 | disposition home or self-care (01) ==
LOC: EN 06:54 → AC 06:55
PROVIDERS: Physician Assistant; PCP Family Medicine; Referring Provider Family Medicine; Visit Provider Surgery
PROC: 0DJ08ZZ Inspection of Upper Intestinal Tract, Via Natural or Artificial Opening Endoscopic (ICD-10-PCS; CPT 43235; principal; 2020-02-03 07:55)
DX: K25.9 Gastric ulcer, unspecified as acute or chronic, without hemorrhage or perforation (principal); K29.00 Acute gastritis without bleeding; K29.50 Unspecified chronic gastritis without bleeding; D50.9 Iron deficiency anemia, unspecified; E78.5 Hyperlipidemia, unspecified; K21.9 Gastro-esophageal reflux disease without esophagitis; E11.319 Type 2 diabetes mellitus with unspecified diabetic retinopathy without macular edema; J44.9 Chronic obstructive pulmonary disease, unspecified; I12.9 Hypertensive chronic kidney disease with stage 1 through stage 4 chronic kidney disease, or unspecified chronic kidney disease; E11.22 Type 2 diabetes mellitus with diabetic chronic kidney disease; N18.3 Chronic kidney disease, stage 3 (moderate); J45.909 Unspecified asthma, uncomplicated; E11.51 Type 2 diabetes mellitus with diabetic peripheral angiopathy without gangrene; Z87.891 Personal history of nicotine dependence; Z86.718 Personal history of other venous thrombosis and embolism; Z85.3 Personal history of malignant neoplasm of breast; Z79.4 Long term (current) use of insulin; Z79.51 Long term (current) use of inhaled steroids; Z79.82 Long term (current) use of aspirin; Z79.899 Other long term (current) drug therapy; Z11.59 Encounter for screening for other viral diseases
CPT/HCPCS: 43239; 82962; 87635; 88305; 88313; 88341; 88342; G2023; J7120; J2405; U0003

== ENCOUNTER → 2020-06-19 | Outpatient (CLI) | payer MEDICARE, SELFPAY ==
[2020-02-03 07:18] VITALS: BMI 29.7
--- NOTE | 2020-06-19 13:50 | US_ITS ---
HISTORY: Postmenopausal bleeding. Most recent CT scan of the abdomen and pelvis is from August 14, 2018. Previous CT scan is from June 25, 2018. Study before that is December 07, 2014. 28 images. Findings: Endovaginal imaging: Some debris appears to be present within the urinary bladder. The cervix is closed. Nabothian cysts present. The uterus measures 7.4 x 3.9 x 3.4 cm. There is a structure measures the endometrial stripe is 7 mm, however, I believe it is difficult discern if this is truly the endometrial stripe versus some artifact. The ovaries are not demonstrated. On image 25 of 28 by believe the endometrial stripe is better demonstrated without artifact. On that image I measured 8 mm. US/Transvaginal Non- IMPRESSION: 8 mm endometrial stripe in a postmenopausal woman is suspicious for endometrial hyperplasia or neoplasia. Biopsy may be beneficial. at 0607 Reported and signed by: Steve Bello MD Electronically Signed: Steve Bello MD at 6:06 EDT Tel , Service support ,
--- NOTE | 2020-06-19 13:50 | US_ITS ---
HISTORY: Postmenopausal bleeding. Most recent CT scan of the abdomen and pelvis is from August 14, 2018. Previous CT scan is from June 25, 2018. Study before that is December 07, 2014. 28 images. Findings: Endovaginal imaging: Some debris appears to be present within the urinary bladder. The cervix is closed. Nabothian cysts present. The uterus measures 7.4 x 3.9 x 3.4 cm. There is a structure measures the endometrial stripe is 7 mm, however, I believe it is difficult discern if this is truly the endometrial stripe versus some artifact. The ovaries are not demonstrated. On image 25 of 28 by believe the endometrial stripe is better demonstrated without artifact. On that image I measured 8 mm. US/Pelvic (Non ) IMPRESSION: 8 mm endometrial stripe in a postmenopausal woman is suspicious for endometrial hyperplasia or neoplasia. Biopsy may be beneficial. at 0607 Reported and signed by: Steve Bello MD Electronically Signed: tSeve Bello MD at 6:06 EDT Tel , Service support ,
== END | disposition home or self-care (01) ==
LOC: US 13:49
PROVIDERS: PCP Family Medicine; Referring Provider Urology; Visit Provider Urology
DX: N95.0 Postmenopausal bleeding (principal)
CPT/HCPCS: 76830; 76856

== ENCOUNTER → 2020-06-25 | Outpatient (CLI) | payer MEDICARE, SELFPAY ==
[2020-06-21 09:33] VITALS: BMI 30.1
[2020-06-25 18:08] LABS: Absolute Lymphocyte Count 2.48 X10^3/uL (0.83-4.51); Absolute Neutrophil Count 3.8 X10^3/uL (2.0-7.7); Basophil# 0.04 X10^3/uL; Basophil% 0.6 % (0-1); Eosinophil# 0.22 X10^3/uL; Eosinophils% 3.1 % (0-5); Hematocrit 34.4 % (37-47); Hemoglobin 10.7 g/dL (12.0-15.0); Lymphocyte # 2.48 X10^3/ul (4.0); Lymphocyte % 35.1 % (19-41); Mean Corp Hgb Conc 31.1 g/dL (32-36); Mean Corpuscular Hgb 27.8 pg (27.0-32.0); Mean Corpuscular Volume 89.4 fL (81-99); Mean Platelet Vol. 11.7 fl (6.2-12.0); Monocyte# 0.52 X10^3/uL; Monocyte% 7.4 % (0-10); NRBC Flagged by Analyzer 0 % (0-5); Neutrophil # 3.78 X10^3/uL (2.7-7.7); Neutrophil % 53.5 % (47-70); Platelet Count 266 K/mm3 (150-450); RBC Distribution Width CV 14.5 % (11.6-14.6); RBC Distribution Width SD 46.7 fl (35.1-43.9); Red Blood Count 3.85 M/mm3 (4.2-5.4); White Blood Count 7.1 K/mm3 (4.4-11.0)
[2020-06-25 18:44] LABS: ALB/GLOB Ratio 0.6 RATIO (0.9-2.4); AST(SGOT) 25 U/L (15-37); Alanine Aminotransfer ALT/SGPT 38 U/L (13-56); Albumin, Serum 3.1 g/dL (3.2-5.0); Alkaline Phosphatase 117 U/L (45-117); Anion Gap 6 (5-15); BUN 15 mg/dL (7-18); Calcium,Total 11.7 mg/dL (8.5-10.1); Chloride 102 mmol/L (98-107); Creatinine, Serum 1.07 mg/dL (0.55-1.02); EST Glomerular Filtration Rate 53 mL/min (>60); Est Glom Filt Rate - Afr Amer 64 mL/min (>60); Globulin 5.4 g/dL (2.2-4.2); Glucose 196 mg/dL (74-106); Potassium 4.3 mmol/L (3.5-5.1); Protein, Total 8.5 g/dL (6.4-8.2); Sodium Level 136 mmol/L (136-145); Thyroid Stim Hormone (TSH) 0.04 uIU/mL (0.358-3.74)
[2020-06-25 18:59] LABS: Hemoglobin A1c 9.5 % (3.8-5.6)
[2020-06-26 10:13] LABS: T4 Free Direct 1.05 ng/dL (0.76-1.46)
[2020-06-26 11:05] LABS: PTHIN 94.4 pg/mL (18.4-80.1)
== END | disposition home or self-care (01) ==
LOC: MFPLAB 14:28
PROVIDERS: PCP Family Medicine; Visit Provider Family Medicine
DX: E11.49 Type 2 diabetes mellitus with other diabetic neurological complication (principal); E83.52 Hypercalcemia
CPT/HCPCS: 36415; 80053; 83036; 83970; 84439; 84443; 84481; 85025

== ENCOUNTER 2020-07-10 05:58 | Day surgery (SDC) | payer MEDICARE, SELFPAY ==
[2020-06-21 09:33] VITALS: BMI 30.1
[2020-07-10] VITALS (7 sets, daily range): BP systolic 125–184; BP diastolic 42–76; PULSE 60–70; RESP 16–24; TEMP 36.3–36.9; O2SAT 94–100; BMI 29.7
--- NOTE | 2020-07-10 | EMB_PTH ---
PATIENT: OLGA DONALDSON LOC: [facility] U#:[id number] AGE/SX: 75/F ROOM: RE07/10/[address]: Dr. Angela Moncada MD : 1945 BED: DIS: 07/10/2020 SPEC #: [id number] RECD: 07/10/20 10:58 STATUS: HARIS KILO #: [id number] HUSSEIN: 07/10/20 00:[address]: Angela Moncada DEPT: SURGICAL PATHOLOGY RECD BY: Jason Lau ENTERED: 07/10/20 10:58 SP TYPE: ENDOM BX/C OTHR DR: Dr. Ramone Smiley MD Tissues: Endometrium, NOS Procedures: Surgery Specimen Level IV HEADER OPERATION: Hysteroscopy, D & C, polyp resection PRE-OP DIAGNOSIS: Postmenopausal bleeding N95.0 TISSUE SUBMITTED: Endometrial curettings and polyp MICROSCOPIC DIAGNOSIS Endometrial curettings and polyp: Inactive endometrium with cystic changes. Fragments of myometrium consistent with submucosal leiomyoma. TANYA:raimundo 07/11/20 MICROSCOPIC DESCRIPTION Slides are reviewed. GROSS DESCRIPTION Received in fixative is one container labeled with the patient's name and designated endometrial curettings and polyp. The specimen consists of multiple irregular fragments of garcía soft tissue that in aggregate measure 2.5 x 2 x 0.3 cm. The specimen is totally submitted in one cassette. / TANYA:raimundo 07/10/20 TC:5 CPT: 34447
[2020-07-10] MEDS: Lactated Ringers 1,000 ML 100 ML IV (06:45)
[2020-07-10 07:15] LABS: Bedside Glucose 151 mg/dL (70-110)
--- NOTE | 2020-07-10 07:17 | HP.PCM_ITS ---
- Problem List (1) Foraminal stenosis of lumbar region Status: Acute (2) Hypokalemia Status: Acute (3) Hyponatremia Status: Acute (4) Microcytic anemia Status: Acute (5) Postmenopausal bleeding Status: Acute Comment: TVUS showed 7 mm lining. EMB done and if normal, no further intervention unless persistent then would recommend d and c hysteroscopy (6) Aortic stenosis Status: Chronic Qualifiers: Comment: valve area in 2014 was 1.7cm2 (7) Asthma Status: Chronic (8) COPD (chronic obstructive pulmonary disease) Status: Chronic (9) Chronic renal failure, stage 3 (moderate) Status: Chronic (10) Colon polyp Status: Chronic Comment: removed with a hot snare in Jul 2018....tubular adenoma (11) Diabetic retinopathy Status: Chronic (12) Former smoker Status: Chronic (13) GERD (gastroesophageal reflux disease) Status: Chronic (14) History of constipation Status: Chronic (15) History of malignant neoplasm of breast Status: Chronic Comment: lumpectomy in 2003 (16) Hx of venous thrombosis and embolism Status: Chronic (17) Hyperlipidemia Status: Chronic (18) Hypertension Status: Chronic (19) Iron deficiency anemia Status: Chronic (20) Lumbar spinal stenosis Status: Chronic Qualifiers: Comment: Severe stenosis at L3-4 and L4-[address] scan of the lumbar spine in October 2019 (21) Neurogenic bladder Status: Chronic (22) Thyroid goiter Status: Chronic (23) Type 2 diabetes mellitus Status: Chronic (24) Urine retention Status: Chronic (25) Hypercalcemia Status: Resolved (26) Hypophosphatemia Status: Resolved (27) UTI (urinary tract infection) Status: Resolved History and Physical Date of Admission: 07/10/20 Intake Vital Signs 06/21/20 Height 5 ft 3 in 06/21/20 Weight: 170 lb 06/21/20 BMI 30.1 06/21/20 BP 148/73 H Intake Visit Reasons: CINDI mace referral Chief Complaint: nakita PUENTE referral Primary Special Education Teacher Required: No Is patient in pain?: No Allergies amoxicillin Allergy (Verified 06/21/20 09:34) YEAST INFECTION cephalexin monohydrate [From Keflex] Allergy (Verified 06/21/20 09:34) Rash clopidogrel bisulfate [From Plavix] Allergy (Verified 06/21/20 09:34) Other cloth tap Allergy (Uncoded 06/21/20 09:34) Other Medications Lisinopril [Zestril] 40 mg PO BID 12/25/14 [History Confirmed 02/01/20] Aspirin [Aspirin, Baby] 81 mg PO DAILY@0800 01/21/16 [History Confirmed 06/21/20] Astepro 1 - 2 sprays NASAL BID 01/21/16 [History Confirmed 06/21/20] Sitagliptin Phosphate [Januvia] 50 mg PO DAILY 01/21/16 [History Confirmed 02/01/20] budesonide-formoterol HFA 160 mcg-4.5 mcg/actuation aerosol inhaler 2 puff INHALATION BID g 01/12/18 [History Confirmed 06/21/20] sodium chloride 0.65 % nasal spray aerosol 1 spray INTRANASAL Q2H PRN PRN 01/12/18 [History Confirmed 02/01/20] Albuterol Inhaler [Ventolin Hfa] 2 puff INHALATION Q4H PRN PRN 08/16/18 [History Confirmed 06/21/20] Calcium Carbonate 600 mg PO DAILY 08/16/18 [History Confirmed 06/21/20] Cod Liver Oil 1 tab PO BREAKFAST 08/16/18 [History Confirmed 06/21/20] Diltiazem HCl [Cardizem LA] 180 mg PO DAILY 08/16/18 [History Confirmed 06/21/20] Lubiprostone [Amitiza] 24 mcg PO BIDCM 08/16/18 [History Confirmed 02/01/20] Magnesium Oxide [Mag-Ox 400] 400 mg PO BID 08/16/18 [History Confirmed 02/01/20] Metoprolol Tartrate [Lopressor (beta jefe)] 25 mg PO BID 08/16/18 [History Confirmed 02/01/20] Pravastatin Sodium 20 mg PO QHS 08/16/18 [History Confirmed 02/01/20] Psyllium [Metamucil] 1 ea PO Q4H PRN 08/16/18 [History Confirmed 02/01/20] Cholecalciferol (VIT D3) [Vitamin D3] 50 mcg PO DAILY 12/02/19 [History Confirmed 06/21/20] Insulin Aspart [Novolog Vial] 16 unit SQ BIDCM 12/02/19 [History Confirmed 02/01/20] Insulin Detemir [Levemir FlexPen] 46 units SUBCUT BIDCM 12/02/19 [History Confirmed 02/01/20] Pantoprazole Sodium [Protonix] 40 mg PO DAILY 12/02/19 [History Confirmed 02/01/20] Polyethylene Glycol 3350 [Miralax] 0.5 ea PO BID 12/02/19 [History Confirmed 02/01/20] Potassium Chloride 40 meq PO BID 12/02/19 [History Confirmed 02/01/20] Ranitidine [Zantac] 300 mg PO QHS 12/02/19 [History Confirmed 02/01/20] Sennosides/Docusate Sodium [Senna-Docusate Sodium Tablet] 1 ea PO BID 12/02/19 [History Confirmed 02/01/20] Vit C/Ascorb Sod/Multivit-Min [Emergen-C 500 mg Chewable Tab] 250 mg PO DAILY 12/02/19 [History Confirmed 02/01/20] gabapentin 300 mg capsule 300 mg PO QHS 01/24/20 [History Confirmed 02/01/20] glimepiride 2 mg tablet 2 mg PO DAILY 01/24/20 [History Confirmed 02/01/20] promethazine 12.5 mg tablet 12.5 mg PO Q6H PRN 01/24/20 [History Confirmed 02/01/20] tiotropium bromide 18 mcg capsule with inhalation device 1 puff INHALATION PRN PRN 01/24/20 [History Confirmed 02/01/20] Is last menstrual period known: No Patient : No : No PFSH PFSH Medical History Neurogenic bladder (Chronic) Microcytic anemia (Acute) Hypokalemia (Acute) Hyperlipidemia (Chronic) Thyroid goiter (Chronic) GERD (gastroesophageal reflux disease) (Chronic) Colon polyp (Chronic) Diabetic retinopathy (Chronic) Lumbar spinal stenosis (Chronic) Foraminal stenosis of lumbar region (Acute) Hypophosphatemia (Resolved) Hypercalcemia (Resolved) Former smoker (Chronic) UTI (urinary tract infection) (Resolved) Iron deficiency anemia (Chronic) Chronic renal failure, stage 3 (moderate) (Chronic) Urine retention (Chronic) Hyponatremia (Acute) Aortic stenosis (Chronic) COPD (chronic obstructive pulmonary disease) (Chronic) History of constipation (Chronic) Hx of venous thrombosis and embolism (Chronic) History of malignant neoplasm of breast (Chronic) Hypertension (Chronic) Type 2 diabetes mellitus (Chronic) Asthma (Chronic) Anemia (Acute) Asthma (Acute) COPD (chronic obstructive pulmonary disease) (Acute) Carpal tunnel syndrome of right wrist (Acute) Cellulitis and abscess of finger, unspecified (Acute) Chronic idiopathic constipation (Acute) Diabetes (Acute) GERD (gastroesophageal reflux disease) (Acute) Goiter, nontoxic, multinodular (Acute) Hypercholesteremia (Acute) Leg weakness, bilateral (Acute) Peripheral artery disease (Acute) Polypharmacy (Acute) Pruritus (Acute) Retinopathy (Acute) Rhinitis (Acute) Strain of right rotator cuff capsule (Acute) Urinary retention with incomplete bladder emptying (Acute) Vitamin D deficiency (Acute) Hypertension (Chronic) Surgical History History of Achilles tendon repair (Acute) History of lumpectomy of left breast (Acute) Retinopathy (Acute) Family History Daughter Breast cancer Father Hypertension Sister Cancer Kidney disease Mother Pancreatic cancer Social History (Updated 06/21/20 @ 10:[address] Angela Moncada MD) household members: spouse Smoking Status: Former smoker alcohol intake: never substance use type: does not use caffeine: Yes what type of physical activity do you participate in: none seatbelt use: always do you feel safe at home: Yes additional social history: [employer]- retired Pregancy History 2 Elective abortions Hx Para 2 Spontaneous abortions Hx # Term Pregnancies Ectopic pregnancies Hx # Pregnancies Multiple births # of living children Past Pregnancies Del. Date Name GA/Weeks Outcome Route Bth Weight Gen Labor Lgth Anesthe cheo Del Locatn Provider FOB Unknown Jennifer Unknown [facility] EMB nakita referral: Details: OLGA DONALDSON is a 75 year old who presents for vaginal bleeding. she has had brown discharge for several months and denies any cramping or pelvic pain. she does struggle with chronic anemia but states she doesn't know where it comes from. she is not sexually active. she was origninally evaluated by dr mace who referred her here. ROS Const Constitutional: Reports system reviewed and no additional complaints, except as docu; denies chills, fever(s), weight gain or weight loss Eyes Eyes: Reports system reviewed and no additional complaints, except as docu ENT ENT: Reports system reviewed and no additional complaints, except as docu Cardio Card: Reports system reviewed and no additional complaints, except as docu Resp Resp: Reports system reviewed and no additional complaints, except as docu and shortness of breath with activity GI GI: Reports as per HPI; denies abdominal pain, bloating, constipation, cramping, nausea or vomiting : Reports as per HPI, urinary incontinence, urinary hesitancy and vaginal discharge (brown); denies difficulty urinating, painful urination, blood in urine, pelvic pain, urinary frequency, urinary urgency, vaginal dryness, vaginal odor, vaginal itching or other Details: neurogenic bladder self caths [facility] Musc: Reports system reviewed and no additional complaints, except as docu Skin Skin/Breast: Reports system reviewed and no additional complaints, except as docu, dry skin and other (chronic skin lesions) Neuro Neuro: Reports system reviewed and no additional complaints, except as docu Psych Psych: Reports system reviewed and no additional complaints, except as docu Exam Const General: cooperative, healthy appearing, comfortable, well developed Orientation: alert [facility] Head: normal to inspection Eyes General: appearance normal, both eyes and all related structures Neck Neck: normal visual inspection, no lymphadenopathy Neck mass: No Thyroid: thyroid normal Chest Chest palpation & inspection: normal inspection of the chest Resp Effort & Inspection: normal respiratory effort Auscultation: clear to auscultation bilaterally Cardio Rate: regular rate Rhythm: regular rhythm Heart Sounds: S1 normal, S2 normal, no murmurs GI Inspection: normal to inspection, non-distended Palpation: soft, no hepatosplenomegaly, no guarding External Female Exam: normal external appearance, normal appearance of the urethra Urethra: normal appearance of the urethra Speculum Exam - Vagina: normal appearance of the vagina (atrophic and narrow), normal vaginal discharge, atrophic vaginal mucosa, no lesions Speculum Exam - Cervix: normal appearance of the cervix (stenotic), nontender Bimanual Exam- Vagina & Uterus: No cervical tenderness Bimanual Exam- Adnexa, other: normal adnexae, no adnexal masses [facility] Thoracic/Lumbar Spine: thoracic and lumbar spine normal to inspection Skin General: no rashes or lesions noted Neuro General: alert, awake Speech: speech normal Extrem General: normal to inspection Psych Appearance: grossly normal Office Procedures Endometrial Biopsy Endometrial Biopsy Details: Cervix prepped with betadine and pipelle inserted into uterus without complication. Specimen obtained and sent to lab for analysis. All instruments removed from vagina without complications. Excellent hemostasis noted. Assessment & Plan Problems 1. Postmenopausal bleeding N95.0 TVUS showed 7 mm lining. EMB done and if normal, no further intervention unless persistent then would recommend d and c hysteroscopy Plan cervical stenosis present and difficult to perform exam due to patient comfort and being postmenopausal. discussed and recommend evaluation of the lining of the uterus vis d and c hysteroscopy in the OR. After discussing the patient's diagnosis and treatment plan options, patient wishes to proceed with surgical management. I have discussed with the patient the risks, benefits, and alternatives of the procedure which include but are not limited to risks of anesthesia, bleeding, infection, possible damage to bowel, bladder, or surrounding vasculature which could lead to additional surgery to evaluate any complications. Patient agrees to procedure and wishes to proceed. ACOG/uptodate references given for additional information regarding procedure. Problem list updated and treatment plans were reviewed with the patient and relevant educational handouts given. See problem list details for specific plan information. Orders Orders: Endometrial Biopsy Today Coding Level of Care Code Off vis,new,level 4 Diagnoses Postmenopausal bleeding N95.0 UPDATE- I have seen the patient and performed any clinically relevant updates to the history and physical exam. Angela Moncada MD
--- NOTE | 2020-07-10 07:31 | PCM.OPRPT ---
Problem List (1) Foraminal stenosis of lumbar region Status: Acute (2) Hypokalemia Status: Acute (3) Hyponatremia Status: Acute (4) Microcytic anemia Status: Acute (5) Postmenopausal bleeding Status: Acute Comment: TVUS showed 7 mm lining. EMB done and if normal, no further intervention unless persistent then would recommend d and c hysteroscopy (6) Aortic stenosis Status: Chronic Qualifiers: Comment: valve area in 2014 was 1.7cm2 (7) Asthma Status: Chronic (8) COPD (chronic obstructive pulmonary disease) Status: Chronic (9) Chronic renal failure, stage 3 (moderate) Status: Chronic (10) Colon polyp Status: Chronic Comment: removed with a hot snare in Jul 2018....tubular adenoma (11) Diabetic retinopathy Status: Chronic (12) Former smoker Status: Chronic (13) GERD (gastroesophageal reflux disease) Status: Chronic (14) History of constipation Status: Chronic (15) History of malignant neoplasm of breast Status: Chronic Comment: lumpectomy in 2003 (16) Hx of venous thrombosis and embolism Status: Chronic (17) Hyperlipidemia Status: Chronic (18) Hypertension Status: Chronic (19) Iron deficiency anemia Status: Chronic (20) Lumbar spinal stenosis Status: Chronic Qualifiers: Comment: Severe stenosis at L3-4 and L4-[address] scan of the lumbar spine in October 2019 (21) Neurogenic bladder Status: Chronic (22) Thyroid goiter Status: Chronic (23) Type 2 diabetes mellitus Status: Chronic (24) Urine retention Status: Chronic (25) Hypercalcemia Status: Resolved (26) Hypophosphatemia Status: Resolved (27) UTI (urinary tract infection) Status: Resolved Report of Operation Date of Procedure: 07/10/20 Pre-Operative Diagnosis: PMB thickened endometrium Post-Operative Diagnosis: endometrial polyp Surgery/Procedure Performed:: d and c hysteroscopy Description of Surgical Findings:: endometrial polyp Type of Anesthesia:: Local MAC Special Medications: none Specimen's removed: emc polyp Drains: none Estimated Blood Loss (mL): 25 Fluids Replaced: crystalloid Description of Procedure: Patient was prepped and draped in a normal sterile fashion under MAC anesthesia. A weighted speculum was placed in the vagina and the anterior lip of the cervix was grasped with a single-tooth tenaculum. A paracervical block was placed with 1% lidocaine. Cervix was progressively dilated to allow passage of a 5 mm hysteroscope. The lining was fully visualized and noted to have an anterior endometrial polyp filling the majority of the cavity. Uterine sounded to 10 cm. Using the symphion device, the polyp was progressively removed without complications. Direct visual curettage was performed using the device , and all specimens were sent to pathology. All instruments were removed from the vagina and excellent hemostasis was noted. Patient was awoken and taken to recovery in stable condition. Grafts/Implants Used: no - Complications none Multi Select Codes - Urinary/Genital Urinary/Genital CPT Codes: 42721 Hysteroscopy,EMC, Polypectomy - operative with symphion
--- NOTE | 2020-07-10 07:32 | PCM.DC.D&C ---
Discharge Diet: No Restrictions Discharge Activity: Return to Normal Activity, May Shower, May Take a Tub Bath Allergies/Adverse Reactions: Allergies amoxicillin Allergy (Verified 07/06/20 10:56) YEAST INFECTION cephalexin monohydrate [From Keflex] Allergy (Verified 07/06/20 10:56) Rash clopidogrel bisulfate [From Plavix] Allergy (Verified 07/06/20 10:56) Other cloth tap Allergy (Uncoded 07/06/20 10:56) Other Medications to take at Discharge Lisinopril [Zestril] 40 mg PO BID 12/25/14 Aspirin [Aspirin, Baby] 81 mg PO DAILY@0800 01/21/16 Astepro 1 - 2 sprays NASAL BID 01/21/16 Sitagliptin Phosphate [Januvia] 50 mg PO DAILY 01/21/16 budesonide-formoterol HFA 160 mcg-4.5 mcg/actuation aerosol inhaler 2 puff INHALATION BID g 01/12/18 sodium chloride 0.65 % nasal spray aerosol 1 spray INTRANASAL Q2H PRN PRN 01/12/18 Albuterol Inhaler [Ventolin Hfa] 2 puff INHALATION Q4H PRN PRN 08/16/18 Calcium Carbonate 600 mg PO DAILY 08/16/18 Cod Liver Oil 1 tab PO BREAKFAST 08/16/18 Diltiazem HCl [Cardizem LA] 180 mg PO DAILY 08/16/18 Lubiprostone [Amitiza] 24 mcg PO BIDCM 08/16/18 Magnesium Oxide [Mag-Ox 400] 400 mg PO BID 08/16/18 Metoprolol Tartrate [Lopressor (beta jefe)] 25 mg PO BID 08/16/18 Pravastatin Sodium 20 mg PO QHS 08/16/18 Psyllium [Metamucil] 1 ea PO Q4H PRN 08/16/18 Cholecalciferol (VIT D3) [Vitamin D3] 50 mcg PO DAILY 12/02/19 Insulin Aspart [Novolog Vial] 16 unit SQ BIDCM 12/02/19 Insulin Detemir [Levemir FlexPen] 52 units SUBCUT BIDCM 12/02/19 Pantoprazole Sodium [Protonix] 40 mg PO QHS 12/02/19 Polyethylene Glycol 3350 [Miralax] 0.5 ea PO BID 12/02/19 Potassium Chloride 40 meq PO BID 12/02/19 Sennosides/Docusate Sodium [Senna-Docusate Sodium Tablet] 1 ea PO BID 12/02/19 Vit C/Ascorb Sod/Multivit-Min [Emergen-C 500 mg Chewable Tab] 250 mg PO DAILY 12/02/19 gabapentin 300 mg capsule 300 mg PO QHS 01/24/20 glimepiride 2 mg tablet 2 mg PO DAILY 01/24/20 promethazine 12.5 mg tablet 12.5 mg PO Q6H PRN 01/24/20 tiotropium bromide 18 mcg capsule with inhalation device 1 puff INHALATION PRN PRN 01/24/20 misoprostol 200 mcg tablet 200 mcg PO .QHS and QAM #2 tab 07/06/20 Orders to be completed after discharge: Type & Screen - PAT ONLY Time Frame: 07/10/20, Facility: [facility], Location: Laboratory Primary Care Physician: Ramone Smiley MD [Primary Care Provider] - Test Results: Test results from this visit will be discussed in further detail at your follow-up appointment, if applicable. Please Follow Up With: Angela Moncada MD - [phone]
[2020-07-10 08:21] LABS: Bedside Glucose 155 mg/dL (70-110)
[2020-07-10] MEDS: Ipratropium/Albuterol Sulfate 3 ML AMPUL.NEB INHALATION (08:31)
== END 2020-07-10 09:35 | disposition home or self-care (01) ==
LOC: SDC 05:59 → AC 06:04
PROVIDERS: PCP Family Medicine; Referring Provider Obstetrics & Gynecology; Visit Provider Obstetrics & Gynecology
PROC: 0UB98ZZ Excision of Uterus, Via Natural or Artificial Opening Endoscopic (ICD-10-PCS; CPT 58558; principal; 2020-07-10 07:15)
DX: N84.0 Polyp of corpus uteri (principal); N95.0 Postmenopausal bleeding; J44.9 Chronic obstructive pulmonary disease, unspecified; I12.9 Hypertensive chronic kidney disease with stage 1 through stage 4 chronic kidney disease, or unspecified chronic kidney disease; E11.22 Type 2 diabetes mellitus with diabetic chronic kidney disease; N18.30 Chronic kidney disease, stage 3 unspecified; E11.319 Type 2 diabetes mellitus with unspecified diabetic retinopathy without macular edema; K21.9 Gastro-esophageal reflux disease without esophagitis; E78.5 Hyperlipidemia, unspecified; D50.9 Iron deficiency anemia, unspecified; D63.1 Anemia in chronic kidney disease; Z79.51 Long term (current) use of inhaled steroids; Z79.4 Long term (current) use of insulin; Z79.899 Other long term (current) drug therapy; Z87.891 Personal history of nicotine dependence
CPT/HCPCS: 00952; 58558; 36415; 82962; 86850; 86900; 86901; 87426; 88305; 94640; C9803; J7120; J2405

== ENCOUNTER → 2020-07-30 | Outpatient (CLI) | payer MEDICARE, SELFPAY ==
[2020-07-30 13:42] VITALS: BMI 27.3
== END | disposition home or self-care (01) ==
LOC: LABSPEC 15:59
PROVIDERS: PCP Family Medicine; Referring Provider Obstetrics & Gynecology; Visit Provider Obstetrics & Gynecology
DX: L73.9 Follicular disorder, unspecified (principal)
CPT/HCPCS: 87070; 87205

== ENCOUNTER → 2020-09-25 14:06 | Outpatient (CLI) | payer MEDICARE, SELFPAY ==
[2020-07-30 13:42] VITALS: BMI 27.3
[2020-09-25 15:42] LABS: Absolute Lymphocyte Count 1.84 X10^3/uL (0.83-4.51); Basophil# 0.04 X10^3/uL; Basophil% 0.4 % (0-1); Eosinophil# 0.14 X10^3/uL; Eosinophils% 1.4 % (0-5); Hematocrit 32.6 % (37-47); Hemoglobin 9.6 g/dL (12.0-15.0); Lymphocyte # 1.84 X10^3/ul (4.0); Lymphocyte % 18.7 % (19-41); Mean Corp Hgb Conc 29.4 g/dL (32-36); Mean Corpuscular Hgb 23.7 pg (27.0-32.0); Mean Corpuscular Volume 80.5 fL (81-99); Monocyte# 0.82 X10^3/uL; Monocyte% 8.3 % (0-10); NRBC Flagged by Analyzer 0 % (0-5); Platelet Count 321 K/mm3 (150-450); RBC Distribution Width CV 15.2 % (11.6-14.6); RBC Distribution Width SD 44.7 fl (35.1-43.9); Red Blood Count 4.05 M/mm3 (4.2-5.4); White Blood Count 9.9 K/mm3 (4.4-11.0)
[2020-09-25 16:12] LABS: Hemoglobin A1c 9.7 % (3.8-5.6)
[2020-09-25 17:09] LABS: ALB/GLOB Ratio 0.6 RATIO (0.9-2.4); AST(SGOT) 21 U/L (15-37); Alanine Aminotransfer ALT/SGPT 26 U/L (13-56); Alkaline Phosphatase 124 U/L (45-117); Anion Gap 7 (5-15); BUN 13 mg/dL (7-18); BUN/Creat Ratio 13.4 RATIO (10-20); Calcium,Total 10.7 mg/dL (8.5-10.1); Chloride 100 mmol/L (98-107); Cholesterol 151 mg/dL (200); Creatinine, Serum 0.97 mg/dL (0.55-1.02); EST Glomerular Filtration Rate 59 mL/min (>60); Est Glom Filt Rate - Afr Amer 72 mL/min (>60); Globulin 5.3 g/dL (2.2-4.2); Glucose 150 mg/dL (74-106); Protein, Total 8.3 g/dL (6.4-8.2); Sodium Level 134 mmol/L (136-145)
[2020-09-26 12:16] LABS: PTHIN 147.2 pg/mL (18.4-80.1)
[2020-09-26 12:16] LABS: Magnesium 2.5 mg/dL (1.6-2.6)
[2020-09-26 13:17] LABS: Vitamin D,25 Hydroxy 16.9 ng/mL
[2020-09-27 14:18] LABS: LDL, Direct 120295 69 mg/dL (0-99)
== END ==
LOC: MFPLAB 14:08
PROVIDERS: PCP Family Medicine; Visit Provider Family Medicine
DX: E11.49 Type 2 diabetes mellitus with other diabetic neurological complication (principal); I73.9 Peripheral vascular disease, unspecified
CPT/HCPCS: 36415; 80053; 82306; 82465; 83036; 83721; 83735; 83970; 85025

== ENCOUNTER → 2020-10-04 11:16 | Outpatient (CLI) | payer MEDICARE, SELFPAY ==
[2020-07-30 13:42] VITALS: BMI 27.3
--- NOTE | 2020-10-04 11:19 | US_ITS ---
STUDY: THYROID ULTRASOUND REASON FOR EXAM: Female, 75 years old. MULTINODULAR GOITER TECHNIQUE: Ultrasound evaluation of the thyroid was performed with real-time and static richards-scale imaging. COMPARISON: None. FINDINGS: RIGHT LOBE: The right lobe of the thyroid gland is enlarged and measures 6.1 cm x 3.1 cm x 2.2 cm. There is a homogeneous echotexture. 3 dominant solid and cystic nodules are seen. The largest measures 2.1 cm x 1.7 cm x 1.3 cm. This lies within the mid pole of the right lobe. Intranodular and perinodular vascularity is seen. LEFT LOBE: The left lobe of the thyroid gland is enlarged and measures 6.3 cm x 2.5 sign by 2.2 cm. There is a homogeneous echotexture. There are 3 dominant complex nodules within the left lobe. The largest is in the upper pole and measures 2.4 cm x 1.8 cm x 1.5 cm. Intranodular and perinodular vascularity is seen. ISTHMUS: The isthmus measures 7.1 mm. The regional lymph nodes are normal. US/Thyroid IMPRESSION: Diffuse enlargement of the thyroid with multiple solid and cystic nodules in both lobes as described. Biopsy recommended. Electronically Signed: Robert Randall MD at 14:31 EST , Service support ,
== END ==
LOC: US 11:19
PROVIDERS: PCP Family Medicine; Referring Provider Family Medicine; Visit Provider Family Medicine
DX: E04.2 Nontoxic multinodular goiter (principal)
CPT/HCPCS: 76536

== ENCOUNTER → 2020-10-24 | Outpatient (CLI) | payer MEDICARE, SELFPAY ==
--- NOTE | 2020-10-24 | FLU_PTH ---
PATIENT: OLGA DONALDSON [id number] AGE/SX: 75/F ROOM: RE10/24/[address]: Dr. Michael Carmen MD : 1945 BED: DIS: 10/24/2020 SPEC #: [id number] RECD: 10/24/20 14:50 STATUS: HARIS REEmily #: [id number] HUSSEIN: 10/24/20 00:[address]: Michael Carmen DEPT: CYTOLOGY RECD BY: Jason Lau ENTERED: 10/25/20 07:27 SP TYPE: Fluid OTHR DR: Dr. Ramone Smiley MD Tissues: A - Thyroid gland, NOS B - Thyroid gland, NOS C - Thyroid gland, NOS D - Thyroid gland, NOS Procedures: Special Stain Group II Surgery Specimen Level IV Cytospin Fluid HEADER OPERATION: Bilateral thyroid fine needle aspiration PRE-OP DIAGNOSIS: Multiple thyroid nodules TISSUE SUBMITTED: A - Right superior thyroid fluid, B - Right thyroid slides x4, C - Left thyroid fluid, D - Left thyroid slides x6 DIAGNOSIS CYTOLOGY A. Right superior thyroid nodule fluid, FNA (cytospin and cell block): Consistent with benign follicular nodule. B. Right thyroid nodule, FNA (smears): Consistent with benign follicular nodule. Adequate for evaluation. C. Left thyroid nodule fluid, FNA (cytospin and cell block): Consistent with benign follicular nodule with cystic changes. D. Left thyroid nodule, FNA (smears): Consistent with benign follicular nodule with cystic changes. Adequate for evaluation. SJ:raimundo 10/26/2020 COMMENT Correlation with clinical, radiologic findings and appropriate follow up are necessary. CYTOLOGY STUDY Slides are reviewed. CYTOLOGY GROSS A - Received is 1 ml of red cloudy fluid labeled with the patient's name and and designated per the requisition as right superior thyroid. Submitted for cytology preparation including cell block. B - Received are four smears labeled with the patient's name and designated per the requisition as right thyroid. Submitted for staining. C - Received is 1 ml of red cloudy fluid labeled with the patient's name and and designated per the requisition as left thyroid. Submitted for cytology preparation including cell block. D - Received are six smears labeled with the patient's name and designated per the requisition as left thyroid. Submitted for staining. / raimundo 10/25/2020 TC:5 CPT: 91081 x2, 32049 x2, 44140 x2
== END | disposition home or self-care (01) ==
PROVIDERS: PCP Family Medicine; Referring Provider Surgery; Visit Provider Surgery
DX: E04.2 Nontoxic multinodular goiter (principal)
CPT/HCPCS: 88108; 88305; 88313

== ENCOUNTER → 2021-01-10 | Outpatient (CLI) | payer MEDICARE, SELFPAY | END | disposition home or self-care (01) | PROVIDERS: PCP Family Medicine; Referring Provider Family Medicine; Visit Provider Family Medicine | DX: Z20.822 Contact with and (suspected) exposure to COVID-19 (principal) | CPT/HCPCS: 87635; U0002 ==

== ENCOUNTER → 2021-02-08 12:46 | Outpatient (CLI) | payer MEDICARE, SELFPAY ==
--- NOTE | 2021-02-08 12:56 | RAD_ITS ---
STUDY: X-RAY CHEST REASON FOR EXAM: Female, 76 years old. COPD with exacerbation TECHNIQUE: PA and lateral views of the chest. COMPARISON: 12/02/2019 FINDINGS: The lungs are clear and expanded. There is no demonstrated pleural abnormality. Normal size heart. Normal mediastinum and eliana. Normal visualized pulmonary arteries. Normal visualized aortic arch and descending thoracic aorta. Normal visualized thoracic spine. Normal visualized ribs, clavicles, and shoulders. There is no demonstrated abnormality of the visualized soft tissue structures of the upper abdomen. RAD/Chest PA and Lateral IMPRESSION: Normal x-ray examination of the chest. Electronically Signed: Weston Patel MD at 11:12 EDT Tel , Service support ,
== END ==
LOC: MTRAD 12:48
PROVIDERS: PCP Family Medicine; Referring Provider Family Medicine; Visit Provider Family Medicine
DX: J44.1 Chronic obstructive pulmonary disease with (acute) exacerbation (principal)
CPT/HCPCS: 71046

== ENCOUNTER 2021-03-09 10:39 | Emergency (ER) | payer MEDICARE, SELFPAY ==
[2021-03-09 10:40] VITALS: BP 149/77; PULSE 79; RESP 16; TEMP 35.1; O2SAT 98; BMI 28.3
[2021-03-09 10:42] VITALS: BP 149/77; PULSE 79; RESP 16; TEMP 35.1; O2SAT 98
--- NOTE | 2021-03-09 10:55 | ED.VIS.FEGU ---
HPI HPI - Female History of Present Illness Chief Complaint: Complaint Narrative Narrative: 76-year-old female presents with what she believes is urinary tract infection symptoms. She states that she self caths and she notes that it hurts before and after she self caths. She was treated for UTI last week by Dr. Haney. She states she was on 2 antibiotics and does not recall what she is on. She states the symptoms resolved and then came back. Denies any systemic signs or symptoms. PFSH PFSH Medical History Anemia Aortic stenosis Asthma Asthma Carpal tunnel syndrome of right wrist Cellulitis and abscess of finger, unspecified Chronic idiopathic constipation Chronic renal failure, stage 3 (moderate) Colon polyp COPD (chronic obstructive pulmonary disease) COPD (chronic obstructive pulmonary disease) Diabetes Diabetic retinopathy Foraminal stenosis of lumbar region Former smoker GERD (gastroesophageal reflux disease) GERD (gastroesophageal reflux disease) Goiter, nontoxic, multinodular History of constipation History of malignant neoplasm of breast Hx of venous thrombosis and embolism Hypercalcemia Hypercholesteremia Hyperlipidemia Hypertension Hypertension Hypokalemia Hyponatremia Hypophosphatemia Iron deficiency anemia Leg weakness, bilateral Lumbar spinal stenosis Microcytic anemia Multiple thyroid nodules Neurogenic bladder Peripheral artery disease Polypharmacy Pruritus Retinopathy Rhinitis Strain of right rotator cuff capsule Thyroid goiter Type 2 diabetes mellitus Urinary retention with incomplete bladder emptying Urine retention UTI (urinary tract infection) Vitamin D deficiency Home Medications lisinopril 40 mg PO BID 12/25/14 [History Last Taken 07/10/20 06:30] Astepro 1 - 2 sprays NASAL BID 01/21/16 [History Last Taken Unknown] aspirin 81 mg PO DAILY@0800 01/21/16 [History Last Taken 01/20/16] Cod Liver Oil 1 tab PO BREAKFAST 08/16/18 [History Last Taken Unknown] Pravastatin Sodium 20 mg PO QHS 08/16/18 [History Last Taken Unknown] albuterol sulfate 2 puff INHALATION Q4H PRN PRN 08/16/18 [History Last Taken 07/10/20 06:30] calcium carbonate 600 mg PO DAILY 08/16/18 [History Last Taken Unknown] diltiazem HCl 180 mg PO DAILY 08/16/18 [History Last Taken 07/10/20 06:30] magnesium oxide 400 mg PO BID 08/16/18 [History Last Taken Unknown] metoprolol tartrate 25 mg PO BID 08/16/18 [History Last Taken 07/10/20 06:30] Potassium Chloride 2 tab PO BID 12/02/19 [History Last Taken Unknown] insulin aspart U-100 20 unit SQ BIDCM 12/02/19 [History Last Taken Unknown] insulin detemir U-100 52 units SC BIDCM 12/02/19 [History Last Taken Unknown] pantoprazole 40 mg PO QHS 12/02/19 [History Last Taken 07/10/20 06:30] polyethylene glycol 3350 0.5 ea PO BID 12/02/19 [History Last Taken Unknown] vitamin B-yovhgcrsymea-pbfxuag 250 mg PO DAILY 12/02/19 [History Last Taken Unknown] gabapentin 300 mg capsule 100 mg PO QHS 01/24/20 [History Last Taken Unknown] triamcinolone acetonide 0.1 % topical ointment 1 applic TOPICAL BID #30 g 07/30/20 [Rx Last Taken Unknown] empagliflozin 10 mg tablet 10 mg PO DAILY 10/18/20 [History Last Taken Unknown] sitagliptin 50 mg tablet 50 mg PO DAILY 10/18/20 [History Last Taken Unknown] Daliresp 500 mg PO DAILY 10/31/20 [History Last Taken Unknown] Fiber 1 cap PO DAILY 10/31/20 [History Last Taken Unknown] Multivitamin 1 tab PO DAILY 10/31/20 [History Last Taken Unknown] Symbicort 160-4.5 Mcg Inhaler 2 puff INHALATION DAILY 10/31/20 [History Last Taken Unknown] Vitamin D2 1 cap PO QWEEK 10/31/20 [History Last Taken Unknown] amoxicillin-pot clavulanate [Augmentin] 1 tab PO Q12H #7 tab 03/09/21 [Rx Last Taken Unknown] fluconazole [Diflucan] 150 mg PO DAILY #1 tab 03/09/21 [Rx Last Taken Unknown] levofloxacin 500 mg PO DAILY #7 tab 03/09/21 [Rx Last Taken Unknown] Allergy/AdvReac Type Severity Reaction Status Date / Time amoxicillin Allergy YEAST Verified 03/09/21 10:40 INFECTION cephalexin monohydrate Allergy Rash Verified 03/09/21 10:40 [From Keflex] clopidogrel bisulfate Allergy Other Verified 03/09/21 10:40 [From Plavix] cloth tap Allergy Other Uncoded 03/09/21 10:40 Family History Daughter Breast cancer Father Hypertension Sister Cancer Kidney disease Mother Pancreatic cancer Surgical History H/O dilation and curettage (~07/10/20) History of Achilles tendon repair History of lumpectomy of left breast Retinopathy S/P fine needle aspiration (~10/2020) Social History household members: spouse Smoking Status: Former smoker alcohol intake: never substance use type: does not use caffeine: Yes what type of physical activity do you participate in: none seatbelt use: always do you feel safe at home: Yes additional social history: [employer]- retired ROS ROS ED Constitutional Constitutional ED: Denies chills or fever(s) Eyes Eyes: Denies blurry vision or diplopia ENT ENT ED: Denies rhinorrhea or sore throat Cardiovascular Cardiovascular: Denies chest pain or palpitations Respiratory/Chest Respiratory/Chest: Denies cough or dyspnea Gastrointestinal Gastrointestinal: Denies abdominal pain, nausea or vomiting Genitourinary Genitourinary ED: Reports dysuria and other Details: Pain with self-catheterization Musculoskeletal Musculoskeletal: Denies arthralgias or myalgias Integumentary Denies abscess or rash Neurologic Neurologic: Denies headache(s) or paresthesias Psychiatric Psychiatric: Denies anxiety or depression EXAM Physical Exam Const Vital Signs: 03/09/21 10:40 03/09/21 10:42 03/09/21 13:11 Temperature 95.2 F L 95.2 F L Temperature Source Temporal Temporal Pulse Rate 79 79 96 Respiratory Rate 16 16 17 Blood Pressure 149/77 H 149/77 H Blood Pressure Mean 101 101 Pulse Ox 98 98 98 Oxygen Delivery Method Room Air Room Air Room Air Positive well nourished General Appearance ED: NAD HEENT Reports moist mucous membranes Negative for trauma Eyes PERRL and EOMs intact bilaterally Resp normal respiratory effort and clear to auscultation bilaterally Cardio regular rate and regular rhythm GI normal to inspection, nondistended, normoactive bowel sounds no CVA tenderness Skin no rashes or lesions noted and no wounds MDM MDM MDM Narrative Medical decision making narrative: Patient presenting for UTI symptoms. She states she was placed on [address] Anguiano however it sounds more like she is on one antibiotic and Pyridium because he is describing orange urine. I did look at the most recent urine cultures that are present in the system and I cannot see the urine culture performed by Dr. Ochoa it appears that she has history of pseudomonal UTI as well as group B strep. It appears that. This would be covered by Levaquin and Augmentin. Patient is given first dose of these in the ED. She will follow-up with her urologist on Thursday. Urine culture was sent and is pending. Patient stable for discharge. Impression: 1. UTI Lab Data Attestation: I reviewed the patient's lab results. Labs: Laboratory Results - last 24 hr 03/09/21 03/09/21 11:15 13:09 Urine Color Yellow Urine Clarity Sl. Cloudy Urine pH 6.0 Ur Specific [place] 1.010 Urine Protein 30 H Urine Glucose (UA) 1000 H Urine Ketones Negative Urine Occult Blood 250 H Urine Nitrite Positive H Urine Bilirubin 1 H Urine Urobilinogen 1 H Ur Leukocyte Esterase 500 H Urine RBC 25-50 SEEN Urine WBC 50-100 SEEN Ur Squamous Epith Cells 0 SEEN Urine Bacteria 3+ Urine Mucus 0 SEEN POC Glucose 201 H Discharge Plan Triage Chief Complaint: Complaint ED Provider: Alex Galdamez Dx/Rx/DC Orders Instructions: ED CYSTITIS Female Adult Prescriptions: New levofloxacin 500 mg tablet 500 mg PO DAILY Qty: 7 RF: 0 amoxicillin-pot clavulanate [Augmentin] 875-125 mg tablet 1 tab PO Q12H Qty: 7 RF: 0 fluconazole [Diflucan] 150 mg tablet 150 mg PO DAILY Qty: 1 RF: 0 No Action gabapentin 300 mg capsule 100 mg PO QHS RF: 0 triamcinolone acetonide 0.1 % ointment 1 applic TOPICAL BID Qty: 30 RF: 2 Januvia 50 mg tablet 50 mg PO DAILY RF: 0 Jardiance 10 mg tablet 10 mg PO DAILY RF: 0 lisinopril 40 MG tablet 40 mg PO BID RF: 0 aspirin 81 MG tablet,chewable 81 mg PO DAILY@0800 RF: 0 Astepro 1 - 2 sprays NASAL BID RF: 0 metoprolol tartrate 25 MG tablet 25 mg PO BID RF: 0 calcium carbonate 600 MG tablet 600 mg PO DAILY RF: 0 magnesium oxide 400 MG tablet 400 mg PO BID RF: 0 diltiazem HCl 180 MG tablet extended release 24 hr 180 mg PO DAILY RF: 0 Pravastatin Sodium 20 MG tablet 20 mg PO QHS RF: 0 Cod Liver Oil 1 tab PO BREAKFAST RF: 0 albuterol sulfate 1 INHALER inhaler 2 puff INHALATION Q4H PRN PRN (Reason: Sob &/Or Wheezing) RF: 0 Daliresp 500 mg PO DAILY RF: 0 Multivitamin 1 tab PO DAILY RF: 0 Fiber 1 cap PO DAILY RF: 0 Vitamin D2 1 cap PO QWEEK RF: 0 Symbicort 160-4.5 Mcg Inhaler 2 puff inhalation DAILY RF: 0 polyethylene glycol 3350 17 GM packet 0.5 ea PO BID RF: 0 pantoprazole 40 MG tablet 40 mg PO QHS RF: 0 insulin detemir U-100 100 UNITS/ML insulin pen 52 units SC BIDCM RF: 0 insulin aspart U-100 100 UNIT/ML solution 20 unit SQ BIDCM RF: 0 vitamin E-woqrjyblnjyv-gmrhlrn 500 MG tablet,chewable 250 mg PO DAILY RF: 0 Potassium Chloride 20 MEQ Tab.Er.Prt 2 tab PO BID RF: 0 Primary Care Provider: Ramone Smiley Referrals: Ramone Smiley MD [Primary Care Provider] - Asha Anguiano MD [STAFF PHYSICIAN] - As soon as possible Disposition Disposition: Home, Self Care
[2021-03-09 11:24] LABS: Mucous, Urine 0 SEEN /hpf (<or=2+); Squamous Epithelial Cells - UA 0 SEEN /hpf (5-10)
[2021-03-09 11:52] LABS: Color, Urine Yellow (Yellow); Glucose, Dipstick 1000 mg/dl (Normal); Ketone-Dipstick Negative (Negative); Leukocyte Esterase-Dipstick 500 /ul (Negative); Nitrite-Dipstick Positive (Negative); Occult Blood-Urine 250 /ul (Negative); Protein-Dipstick 30 mg/dl (Negative); Urine Clarity Sl. Cloudy (Clear); Urine Urobilinogen 1 mg/dl (Normal)
[2021-03-09 11:54] LABS: Urine Bilirubin Dipstick 1 mg/dL (Negative)
[2021-03-09 11:58] LABS: White Blood Cells 50-100 SEEN /hpf (0-5)
[2021-03-09 11:59] LABS: Bacteria 3+ /hpf (None Seen); Red Blood Cells-Urine 25-50 SEEN /hpf (0-5)
[2021-03-09 13:11] VITALS: PULSE 96; RESP 17; O2SAT 98
[2021-03-09 13:16] LABS: Bedside Glucose 201 mg/dL (70-110)
[2021-03-09 13:32] VITALS: BP 113/55; PULSE 102; RESP 16; O2SAT 100
[2021-03-09] MEDS: Amox/Clavulanate 875 MG Tablet PO (13:37)
[2021-03-09] MEDS: levoFLOXacin 500 MG Tablet PO (13:37)
[2021-03-09] MEDS: Naproxen 500 MG Tablet PO (13:53)
== END 2021-03-09 13:53 | disposition home or self-care (01) ==
PROVIDERS: Emergency Provider Student in an Organized Health Care Education/Training Program; PCP Family Medicine
DX: N39.0 Urinary tract infection, site not specified (principal); J44.9 Chronic obstructive pulmonary disease, unspecified; E11.22 Type 2 diabetes mellitus with diabetic chronic kidney disease; N18.30 Chronic kidney disease, stage 3 unspecified; K21.9 Gastro-esophageal reflux disease without esophagitis; E78.5 Hyperlipidemia, unspecified; I12.9 Hypertensive chronic kidney disease with stage 1 through stage 4 chronic kidney disease, or unspecified chronic kidney disease; Z79.4 Long term (current) use of insulin; Z79.899 Other long term (current) drug therapy; Z87.891 Personal history of nicotine dependence
CPT/HCPCS: 81001; 82962; 87077; 87086; 87088; 87186; 99283

== ENCOUNTER 2021-03-18 05:19 | Day surgery (SDC) | payer MEDICARE, SELFPAY ==
[2021-03-15 15:07] VITALS: BMI 29.5
[2021-03-18] VITALS (7 sets, daily range): BP systolic 80–149; BP diastolic 48–60; PULSE 58–68; RESP 16–18; TEMP 36–36.2; O2SAT 98–99; BMI 28.4
--- NOTE | 2021-03-18 05:46 | PCM.HP.BLA ---
History and Physical Date of Admission: 03/18/21 Intake Visit Reasons: CSCOPE, GI BLEED Chief Complaint: anemia/upper and lower scope consult Measurement And Sensing Technician Required: No Accompanied by: Unknown Is patient in pain?: No Allergies amoxicillin Allergy (Verified 03/15/21 15:03) YEAST INFECTION cephalexin monohydrate [From Keflex] Allergy (Verified 03/15/21 15:03) Rash clopidogrel bisulfate [From Plavix] Allergy (Verified 03/15/21 15:03) Other cloth tap Allergy (Uncoded 03/09/21 10:40) Other Medications lisinopril 40 mg PO BID 12/25/14 [History Confirmed 03/15/21] Astepro 1 - 2 sprays NASAL BID 01/21/16 [History Confirmed 03/15/21] aspirin 81 mg PO DAILY@0800 01/21/16 [History Confirmed 03/15/21] Cod Liver Oil 1 tab PO BREAKFAST 08/16/18 [History Confirmed 03/15/21] Pravastatin Sodium 20 mg PO QHS 08/16/18 [History Confirmed 03/15/21] albuterol sulfate 2 puff INHALATION Q4H PRN PRN 08/16/18 [History Confirmed 03/15/21] calcium carbonate 600 mg PO DAILY 08/16/18 [History Confirmed 03/15/21] diltiazem HCl 180 mg PO DAILY 08/16/18 [History Confirmed 03/15/21] magnesium oxide 400 mg PO BID 08/16/18 [History Confirmed 03/15/21] metoprolol tartrate 25 mg PO BID 08/16/18 [History Confirmed 03/15/21] Potassium Chloride 2 tab PO BID 12/02/19 [History Confirmed 03/15/21] insulin aspart U-100 20 unit SQ BIDCM 12/02/19 [History Confirmed 03/15/21] insulin detemir U-100 52 units SC BIDCM 12/02/19 [History Confirmed 03/15/21] pantoprazole 40 mg PO QHS 12/02/19 [History Confirmed 03/15/21] polyethylene glycol 3350 0.5 ea PO BID 12/02/19 [History Confirmed 03/15/21] vitamin Y-fmznodouyzsb-txefdcs 250 mg PO DAILY 12/02/19 [History Confirmed 03/15/21] gabapentin 300 mg capsule 100 mg PO QHS 01/24/20 [History Confirmed 03/15/21] triamcinolone acetonide 0.1 % topical ointment 1 applic TOPICAL BID #30 g 07/30/20 [Rx Confirmed 03/15/21] empagliflozin 10 mg tablet 10 mg PO DAILY 10/18/20 [History Confirmed 03/15/21] sitagliptin 50 mg tablet 50 mg PO DAILY 10/18/20 [History Confirmed 03/15/21] Daliresp 500 mg PO DAILY 10/31/20 [History Confirmed 03/15/21] Fiber 1 cap PO DAILY 10/31/20 [History Confirmed 03/15/21] Multivitamin 1 tab PO DAILY 10/31/20 [History Confirmed 03/15/21] Symbicort 160-4.5 Mcg Inhaler 2 puff INHALATION DAILY 10/31/20 [History Confirmed 03/15/21] Vitamin D2 1 cap PO QWEEK 10/31/20 [History Confirmed 03/15/21] amoxicillin-pot clavulanate [Augmentin] 1 tab PO Q12H #7 tab 03/09/21 [Rx Confirmed 03/15/21] fluconazole [Diflucan] 150 mg PO DAILY #1 tab 03/09/21 [Rx Confirmed 03/15/21] levofloxacin 500 mg PO DAILY #7 tab 03/09/21 [Rx Confirmed 03/15/21] naproxen [Naprosyn] 500 mg PO BID #10 tab 03/09/21 [Rx Confirmed 03/15/21] PFSH Medical History Anemia Aortic stenosis Asthma Asthma Carpal tunnel syndrome of right wrist Cellulitis and abscess of finger, unspecified Chronic idiopathic constipation Chronic renal failure, stage 3 (moderate) Colon polyp COPD (chronic obstructive pulmonary disease) COPD (chronic obstructive pulmonary disease) Diabetes Diabetic retinopathy Foraminal stenosis of lumbar region Former smoker GERD (gastroesophageal reflux disease) GERD (gastroesophageal reflux disease) Goiter, nontoxic, multinodular History of constipation History of malignant neoplasm of breast Hx of venous thrombosis and embolism Hypercalcemia Hypercholesteremia Hyperlipidemia Hypertension Hypertension Hypokalemia Hyponatremia Hypophosphatemia Iron deficiency anemia Leg weakness, bilateral Lumbar spinal stenosis Microcytic anemia Multiple thyroid nodules Neurogenic bladder Peripheral artery disease Polypharmacy Pruritus Retinopathy Rhinitis Strain of right rotator cuff capsule Thyroid goiter Type 2 diabetes mellitus Urinary retention with incomplete bladder emptying Urine retention UTI (urinary tract infection) Vitamin D deficiency Surgical History H/O dilation and curettage (~07/10/20) History of Achilles tendon repair History of lumpectomy of left breast Retinopathy S/P fine needle aspiration (~10/2020) Family History Daughter Breast cancer Father Hypertension Sister Cancer Kidney disease Mother Pancreatic cancer Social History household members: spouse Smoking Status: Former smoker alcohol intake: never substance use type: does not use caffeine: Yes what type of physical activity do you participate in: none seatbelt use: always do you feel safe at home: Yes additional social history: [employer]- retired HPI HPI HPI: OLGA DONALDSON, is a 76 F who presents to the office today for surgical consultation regarding persistent anemia. The patient is referred by Dr. Joseph Rolle and a written copy of my surgical consult and recommendations will return to him. The patient most recently had a successful upper and lower endoscopy. This actually was performed during a prolonged hospitalization for anemia and blood transfusion. She required 3 to 4 days of bowel prepping in order to achieve a adequate prep. Previous outpatient attempts to do bowel prepping have all failed. She even attempted to have a colonoscopy performed up at [facility] and that failed due to inadequate bowel prep. As of July 2018 an upper and lower endoscopy suggested moderately congested mucosa of the gastric antrum with a biopsy showing congestion and reactive fibrosis of the antrum. Otherwise the exam was normal. Colonoscopy demonstrated a polyp in the cecum semipedunculated removed with a hot snare and was a tubular adenoma. The patient denies any abdominal pain. She denies any bright red blood per rectum or melena. Her most recent laboratory demonstrates a white blood cell count of 7.22 with a hemoglobin 9.7 hematocrit 32.8 platelet count 3 and 28,000. Her reticulocyte percentage was 2.9. She is suggest to me that she also had submitted a recent stool card and by her discussion that card was negative. She cannot remember however how many blood transfusions she is received. Apparently she also is receiving IV iron. There is a concern about potential for ongoing loss. She is on a low-dose 81 mg aspirin. She cannot precisely recall the etiology for this but her history is 1 of having aortic stenosis as well of as history of DVT and pulmonary embolism. She has had a previous history of breast cancer in addition to her other chronic morbidities. She states that she has to straight cath 3 times a day. She has a CT scan scheduled 03/22/2021 for urologic concerns. She does intermittently have heartburn reflux. She does take pantoprazole 40 mg nightly ROS General General: Yes fatigue and breast cancer; No weight change, appetite, colon cancer or weakness HEENT HEENT: No difficulty swallowing, eye injury, eye surgery, swollen glands or hoarseness Endo Endocrine: Yes diabetes mellitus; No thyroid disease, thyroid cancer, Hair loss, heat intolerance or cold intolerance Skin Skin: No rash or changing moles Breast Breast: No left breast lump, right breast lump, nipple discharge, breast pain, abnormal mammogram, abnormal US or breast enlargement Musc Musculoskeletal: Yes back problems; No arthritis, rheumatoid arthritis, gout or joint pain Cardio Cardiovascular: Yes murmur and high blood pressure; No pacemaker, heart disease, atrial fibrillation, heart attack, heart stent, palpitations, shortness of breat with exertion or chest pain Psych Psychiatric: Yes anxiety; No depression or hearing voices Resp Respiratory: Yes shortness of breath, No sleep apnea, No cough, Yes COPD, Yes asthma, No emphysema and No wheezing Gastro Gastrointestinal: No abdominal pain, No nausea or vomiting, No diarrhea, Yes constipation, No blood in stool, Yes acid reflux, No hemorrhoids, No ulcers, No gallbladder problem and No black,tarry stools Jason Hematologic: Yes blood thinners, No blood disorders, No bleeding, Yes anemia and No blood clots Neuro Neurologic: No system reviewed and no additional complaints, except as documented, No as per HPI, No abnormal gait, No abnormal hearing, No abnormal movements, No abnormal speech, No behavioral changes, No burning sensations, No confusion, No convulsions, No disequilibrium, No dizziness, No localized weakness, No frequent falls, No headache(s), No lack of coordination, No loss of vision, No memory loss, No numbness, No other visual disturbances, No radicular pain, No restless legs, No sensory deficit, No syncope, No tingling, No tremor(s), No weakness and No other Exam Const General: cooperative, comfortable and no acute distress Nutritional Appearance: overweight Orientation: alert and awake HENMT Head: normal to inspection Eyes General: appearance normal, both eyes and all related structures Resp Effort & Inspection: normal respiratory effort Auscultation: clear to auscultation bilaterally Cardio Rate: regular rate Rhythm: regular rhythm GI Palpation: soft Neuro General: patient alert and patient awake Extrem General: no calf tenderness Psych Appearance: grossly normal COVID (Procedure Consent) Procedure Criteria Procedure Criteria: Yes Elective The surgeon/proceduralist and patient have discussed in detail the risk of exposure to and/or potential harm posed by the COVID-19 virus with having a surgery/procedure at this time versus the risk of delaying the surgery/procedure. It is not possible to know either the risk of delaying the surgery or procedure or chance of getting an infection with perfect accuracy, but a joint decision was made between the patient and the surgeon/proceduralist to proceed at this time with the scheduled surgery/procedure as indicated on the consent form. Assessment and Plan Assessment and Plan (1) Microcytic anemia: Status: Acute Plan Details Additional Comments: 76-year-old -Citizen Of [place] female. She has ongoing microcytic anemia. She had her most recent colonoscopy July 2018. A tubular adenoma was removed from the cecum at that time. By her report an attempt was made to reschedule her for colonoscopy within the recent past and that insurance declined at based upon her age of 76. She does have ongoing reflux disease and takes medication. Her previous upper endoscopy July 2018 did demonstrate congestion of the antral area. It is of additional note that the patient unfortunately has an excruciating difficult time at performing a bowel prep which literally has to extend 3 to 4 days. This has not been able to be accomplished previously as an outpatient and she has only had one successful prep as an inpatient which actually had a failed colonoscopy component to it requiring 1 more day of prep. I do not believe that we will be able to achieve an outpatient colonoscopy and as the patient notes she has had previous insurance decline. Propose for her a esophagogastroduodenoscopy with possible biopsy or polypectomy as indicated. She has had an opportunity to ask and have questions answered. We will schedule procedure at her discretion. I appreciate the opportunity of assisting with her surgical care. Copy: Dr. Joseph Rolle and Dr. Ramone Carmen M.D., F.A.C.S. Coding Level of Care Code 38993 Diagnoses Microcytic anemia D50.9 I have re-examined the patient. There are no clinical changes since date of exam.
[2021-03-18] MEDS: Lactated Ringers 1,000 ML 100 ML IV (06:00)
--- NOTE | 2021-03-18 06:30 | IMM_PTH ---
PATIENT: OLGA DONALDSON LOC: EN U#:[id number] AGE/SX: 76/F ROOM: RE03/18/[address]: Dr. Michael Carmen MD : 1945 BED: DIS: 03/18/2021 SPEC #: [id number] RECD: 03/18/21 14:37 STATUS: HARIS REQ #: [id number] HUSSEIN: 03/18/21 06:[address]: Michael Carmen DEPT: IMMUNOHISTOCHEMISTRY RECD BY: Chasidy Yoo ENTERED: 03/18/21 14:37 SP TYPE: IMMUNO OTHR DR: Dr. Ramone Smiley MD Tissues: B - Stomach, NOS Procedures: H Pylori (initial) PHYSICIAN & INSTITUTION [place] [id number] SPECIMEN INFORMATION: Tissue Source: B ? Antrum biopsy Clinical Info: Microcytic anemia Specimen Number: [id number] CPT code: 14646 METHODOLOGY: Deparaffinized sections of prefer/formalin-fixed tissue or PAP/DQ stained slides are incubated with monoclonal/polyclonal antibodies/oligonucleotide probes. Localization is made via biotin free immunoperoxidase method. Appropriate controls are performed and reacted as expected. Results on target cell population are indicated in the following table: RESULTS: ANTIBODY / CLONE RESULT Block B H Pylori (polyclonal) negative These tests were developed and their performance characteristics determined by [facility]. They may not have been cleared or approved by the U.S. Food and Drug Administration. The FDA has determined that such clearance or approval is not necessary. INTERPRETATION: B. Antrum biopsy: Negative for Helicobacter pylori organisms. SJ:raimundo 03/19/2021
--- NOTE | 2021-03-18 06:30 | EGD_PTH ---
PATIENT: OLGA DONALDSON LOC: EN U#:[id number] AGE/SX: 76/F ROOM: RE03/18/[address]: Dr. Michael Carmen MD : 1945 BED: DIS: 03/18/2021 SPEC #: [id number] RECD: 03/18/21 10:09 STATUS: HARIS KILO #: [id number] HUSSEIN: 03/18/21 06:[address]: Michael Carmen DEPT: SURGICAL PATHOLOGY RECD BY: Jana Dee ENTERED: 03/18/21 13:30 SP TYPE: EGD BIOPSY OT DR: Dr. Ramone Smiley MD Tissues: A - Duodenum, NOS B - Gastric mucous membrane C - Esophagus, NOS Procedures: Special Stain Group II Surgery Specimen Level IV Alcian Blue/PAS (control) HEADER OPER[place] [place] DIAGNOSIS: Microcytic anemia TISSUE SUBMITTED: A - Duodenum biopsy, B - Antrum biopsy for H. pylori and path, C - Distal esophagus biopsy MICROSCOPIC DIAGNOSIS A. Duodenum biopsy: A fragment of duodenal mucosa with mild to moderate nonspecific chronic inflammation. B. Antrum biopsy: Acute and chronic gastritis. Focal intestinal metaplasia. See comment. C. Distal esophagus, biopsy: Fragments of gastroesophageal mucosa with moderate chronic inflammation. Intestinal metaplasia (goblet cell metaplasia) is not identified. See comment. SJ:rg 03/19/2021 COMMENT B. The results of immunohistochemistry for Helicobacter pylori will be reported separately ([id number]). Alcian blue/PAS stain with matched control is used in the evaluation of the specimen. C. Alcian blue/PAS stain with matched control is used in the evaluation of the specimen. This case has been reviewed in consultation with Dr. Brown who concurs with the above diagnosis. MICROSCOPIC DESCRIPTION Slides are reviewed. GROSS DESCRIPTION A - Received in fixative is one container labeled with the patient's name and designated duodenum biopsy. The specimen consists of one irregular fragment of light garcía soft tissue that measures 0.5 x 0.3 x 0.1 cm. The specimen is totally submitted in one cassette. B - Received in fixative is one container labeled with the patient's name and designated gastric antrum biopsy. The specimen consists of multiple irregular fragments of light garcía soft tissue that in aggregate measure 1 x 0.2 x 0.1 cm. The specimen is totally submitted in one cassette. C - Received in fixative is one container labeled with the patient's name and designated distal esophagus biopsy. The specimen consists of two irregular fragments of light garcía soft tissue that in aggregate measure 0.7 x 0.7 x 0.1 cm. The specimen is totally submitted in one cassette. / AM:raimundo 03/18/21 TC:2 CPT: 16245 x3, 31098 x2
[2021-03-18 07:40] LABS: Bedside Glucose 207 mg/dL (70-110)
--- NOTE | 2021-03-18 13:20 | OP.EGD_ITS ---
Patient Name: Junaa Pollard Procedure Date: 03/18/2021 6:15 AM Date of : 1945 Age: 76 Procedure: Upper GI endoscopy Indications: Iron deficiency anemia Providers: Michael Carmen MD Medicines: See the Anesthesia note for documentation of the administered medications Complications: No immediate complications. Procedure: Pre-Anesthesia Assessment: - Prior to the procedure, a History and Physical was performed, and patient medications and allergies were reviewed. The patient's tolerance of previous anesthesia was also reviewed. The risks and benefits of the procedure and the sedation options and risks were discussed with the patient. All questions were answered, and informed consent was obtained. Prior Anticoagulants: The patient has taken no previous anticoagulant or antiplatelet agents. ASA Grade Assessment: II - A patient with mild systemic disease. After reviewing the risks and benefits, the patient was deemed in satisfactory condition to undergo the procedure. After obtaining informed consent, the endoscope was passed under direct vision. Throughout the procedure, the patient's blood pressure, pulse, and oxygen saturations were monitored continuously. The gastroscope was introduced through the mouth, and advanced to the second part of duodenum. The upper GI endoscopy was accomplished without difficulty. The patient tolerated the procedure well. Scope In: 6:49:13 AM Scope Out: 6:58:34 AM Total Procedure Duration Time 0 hours 9 minutes 21 seconds Findings: The Z-line was irregular and was found 38 cm from the incisors. Biopsies were taken with a cold forceps for histology. A small hiatal hernia was present. Circumferential salmon-colored mucosa was present at 38 cm. Diffuse moderately erythematous mucosa without bleeding was found in the gastric antrum. Biopsies were taken with a cold forceps for histology. The examined duodenum was normal. Biopsies were taken with a cold forceps for histology. Impression: - Z-line irregular, 38 cm from the incisors. Biopsied. - Small hiatal hernia. - [place]-colored mucosa. - Erythematous mucosa in the antrum. Fiable on biopsy and potential source of blood loss. Biopsied. - Normal examined duodenum. Biopsied. Recommendation: - Discharge patient to home. - Resume previous diet. - Continue present medications. - Use sucralfate tablets 1 gram PO QID. - Telephone my office for pathology results in 1 week. Procedure Code(s): --- Professional --- 95525, Esophagogastroduodenoscopy, flexible, transoral; with biopsy, single or multiple Diagnosis Code(s): --- Professional --- K22.8, Other specified diseases of esophagus K44.9, Diaphragmatic hernia without obstruction or gangrene K31.89, Other diseases of stomach and duodenum D50.9, Iron deficiency anemia, unspecified CPT copyright 2017 [employer] [employer]. All rights reserved. The codes documented in this report are preliminary and upon poultry processing supervisor review may be revised to meet current compliance requirements. Michael Carmen MD 03/18/2021 7:06:13 AM This report has been signed electronically. Number of Addenda: 0 Note Initiated On: 03/18/2021 6:15 AM
--- NOTE | 2021-03-18 13:20 | OP.CCLET_ITS ---
03/18/2021 Joseph Rolle [address] [place] [address] Re : Upper GI endoscopy procedure for Juana Pollard Dear Dr. Rolle This procedure was performed on Thursday, March 18, 2021. My impressions and recommendations are as follows: Impressions : - Z-line irregular, 38 cm from the incisors. Biopsied. - Small hiatal hernia. - [place]-colored mucosa. - Erythematous mucosa in the antrum. Fiable on biopsy and potential source of blood loss. Biopsied. - Normal examined duodenum. Biopsied. Recommendations : - Discharge patient to home. - Resume previous diet. - Continue present medications. - Use sucralfate tablets 1 gram PO QID. - Telephone my office for pathology results in 1 week. My findings are described in the full procedure note, which is enclosed. If I can be of further assistance, please feel free to contact me at Doctor phone number(s): Work: . Sincerely, Michael Carmen MD 03/18/2021 7:06:13 AM This report has been signed electronically.
== END 2021-03-18 07:57 | disposition home or self-care (01) ==
LOC: EN 05:20 → AC 05:26
PROVIDERS: PCP Family Medicine; Referring Provider Family Medicine; Visit Provider Surgery
PROC: 0DJ08ZZ Inspection of Upper Intestinal Tract, Via Natural or Artificial Opening Endoscopic (ICD-10-PCS; CPT 43235; principal; 2021-03-18 06:25)
DX: K29.80 Duodenitis without bleeding (principal); K29.50 Unspecified chronic gastritis without bleeding; K29.00 Acute gastritis without bleeding; K21.00 Gastro-esophageal reflux disease with esophagitis, without bleeding; K44.9 Diaphragmatic hernia without obstruction or gangrene; D50.9 Iron deficiency anemia, unspecified; J45.909 Unspecified asthma, uncomplicated; I12.9 Hypertensive chronic kidney disease with stage 1 through stage 4 chronic kidney disease, or unspecified chronic kidney disease; E11.22 Type 2 diabetes mellitus with diabetic chronic kidney disease; N18.30 Chronic kidney disease, stage 3 unspecified; E78.5 Hyperlipidemia, unspecified; Z87.891 Personal history of nicotine dependence; Z86.718 Personal history of other venous thrombosis and embolism; Z86.711 Personal history of pulmonary embolism; Z79.899 Other long term (current) drug therapy; Z79.51 Long term (current) use of inhaled steroids; Z79.4 Long term (current) use of insulin
CPT/HCPCS: 43239; 82962; 88305; 88313; 88342; J7120; J2405

== ENCOUNTER → 2021-03-22 15:44 | Outpatient (CLI) | payer MEDICARE, SELFPAY ==
[2021-03-09 10:40] VITALS: BMI 28.3
[2021-03-18 06:03] VITALS: BMI 28.4
--- NOTE | 2021-03-22 15:47 | CT_ITS ---
STUDY: CT ABDOMEN AND PELVIS WITH AND WITHOUT CONTRAST-CT UROGRAM REASON FOR EXAM: Female, 76 years old. SELF CATHERAZATION BLADDER 3 TIMES DAILY. PNEUMATURIA, UTI AND PAIN RADIATION DOSAGE (If Supplied By Facility): CTDIvol = ( 21.67 ) mGy, DLP = ( 3043.30 ) mGycm TECHNIQUE: Transaxial images were obtained from the dome of the diaphragm to the symphysis pubis without oral contrast. ml of and amp; 100mL Isovue-370 contrast was administered. Sagittal and coronal images were reconstructed. CT urogram protocol with imaging in the noncontrasted, corticomedullary and delayed phases. Individualized dose optimization techniques were used for this CT. COMPARISON: 08/14/2018 FINDINGS: The visualized lung bases are unremarkable. The visualized portions of the heart are within normal limits. Normal liver. There are multiple gallstones. Nonenhancing well-defined low-density lesion in the central spleen measures 2.2 cm, not substantially changed since prior study although better seen on the current exam given presence of IV contrast. ACR White Paper guidelines (Heller, et al. JACR 2013; 10(11):833-9) suggest no follow-up is necessary. Normal pancreas. Normal bilateral adrenal glands. Noncontrasted imaging shows symmetric kidneys without solid or cystic mass. There are bilateral central renal calcifications that are more likely vascular than renal nephrolithiasis. Slight right hydronephrosis and proximal right hydroureter extending to the level of the right hemipelvis (posterior to the uterus, deviated to the right). Although the distal right ureter does not opacify well, a right ureteral jet is confirmed mitigating against complete ureteral obstruction. Following IV contrast, there is equal and normal enhancement of the kidneys without solid or cystic mass. CT urographic images demonstrate excellent opacification of the left ureter. No filling defects or ureteral masses. The urinary bladder is moderately distended with the top of the bladder extending to the level of the umbilicus. No bladder wall thickening or urinary bladder luminal air. Normal visualized stomach. Normal small intestine. Persistent colonic fecal retention although less pronounced as compared to the prior study. There is non-visualization of the appendix. There is diffuse atherosclerotic calcification of the abdominal aorta, without a demonstrated aneurysm. Normal inferior vena cava. Normal retroperitoneum. The uterus is positioned in the right hemipelvis with lobulated borders and calcifications compatible with uterine fibroids, not substantially changed since the prior study. Normal abdominal wall. Degenerative changes of the bilateral hips and lumbar spine. A presacral neurostimulator device is noted. CT/CT Abd/Pelvis W/WO Contrast IMPRESSION: 1. Moderately distended urinary bladder, extending to the level of the umbilicus. No bladder wall thickening or urinary bladder luminal air to suggest fistula. 2. Narrowing of the right mid ureter at the level of the pelvic inlet as it passes posteriorly to the right deviated uterus. Mild right hydronephrosis and right hydroureter. However, a right ureteral jet is confirmed. 3. Suspect fibroid uterus. 4. Persistent decreased colonic fecal retention. 5. Cholelithiasis. 6. Central renal calcifications are likely vascular rather than nephrolithiasis. Electronically Signed: Zechariah Redmond MD (Brooks) at 16:22 EDT , Service support ,
[2021-03-22 16:01] LABS: EGFR FINGERSTICK > 60.0000 mL/min (>60)
== END ==
LOC: CT 15:45
PROVIDERS: PCP Family Medicine; Referring Provider Urology; Visit Provider Urology
DX: N39.0 Urinary tract infection, site not specified (principal); R10.2 Pelvic and perineal pain; R39.89 Other symptoms and signs involving the genitourinary system
CPT/HCPCS: 74178; Q9967; A4216

== ENCOUNTER → 2021-06-06 15:45 | Outpatient (CLI) | payer MEDICARE, SELFPAY ==
[2021-06-06 18:01] LABS: Absolute Neutrophil Count 5.8 X10^3/uL (2.0-7.7); Basophil# 0.06 X10^3/uL; Basophil% 0.7 % (0-1); Eosinophil# 0.19 X10^3/uL; Eosinophils% 2.1 % (0-5); Hematocrit 41.6 % (37-47); Mean Corp Hgb Conc 31.3 g/dL (32-36); Mean Corpuscular Volume 86.3 fL (81-99); Mean Platelet Vol. 10.4 fl (6.2-12.0); Monocyte# 0.86 X10^3/uL; Monocyte% 9.4 % (0-10); NRBC Flagged by Analyzer 0 % (0-5); Neutrophil # 5.84 X10^3/uL (2.7-7.7); Neutrophil % 63.5 % (47-70); Platelet Count 313 K/mm3 (150-450); RBC Distribution Width CV 13.3 % (11.6-14.6); RBC Distribution Width SD 41.5 fl (35.1-43.9); Red Blood Count 4.82 M/mm3 (4.2-5.4); White Blood Count 9.2 K/mm3 (4.4-11.0)
[2021-06-06 18:16] LABS: Erythrocyte Sedimentation Rate 77 mm/hr (0-30)
[2021-06-06 18:17] LABS: Vitamin B12 301 pg/mL (211-911)
[2021-06-06 18:34] LABS: ALB/GLOB Ratio 0.5 RATIO (0.9-2.4); AST(SGOT) 26 U/L (15-37); Alanine Aminotransfer ALT/SGPT 38 U/L (13-56); Albumin, Serum 2.8 g/dL (3.2-5.0); Alkaline Phosphatase 111 U/L (45-117); Anion Gap 9 (5-15); BUN 19 mg/dL (7-18); BUN/Creat Ratio 15.7 RATIO (10-20); CPK Total, Creatine Kinase 26 U/L (26-192); Calcium,Total 11.7 mg/dL (8.5-10.1); Chloride 96 mmol/L (98-107); Creatinine, Serum 1.21 mg/dL (0.55-1.02); EST Glomerular Filtration Rate 46 mL/min (>60); Est Glom Filt Rate - Afr Amer 55 mL/min (>60); Ferritin 5030 ng/mL (8-252); Globulin 5.8 g/dL (2.2-4.2); Glucose 133 mg/dL (74-106); Potassium 4.2 mmol/L (3.5-5.1); Protein, Total 8.6 g/dL (6.4-8.2); Sodium Level 131 mmol/L (136-145); Thyroid Stim Hormone (TSH) < 0.01 uIU/mL (0.358-3.74)
== END ==
LOC: MFPLAB 15:54
PROVIDERS: PCP Family Medicine; Referring Provider Family Medicine; Visit Provider Family Medicine
DX: D64.9 Anemia, unspecified (principal); E11.49 Type 2 diabetes mellitus with other diabetic neurological complication; R63.4 Abnormal weight loss
CPT/HCPCS: 36415; 80053; 82043; 82550; 82570; 82607; 82728; 83970; 84443; 85025; 85652; 86140

== ENCOUNTER → 2021-06-12 10:29 | Outpatient (CLI) | payer MEDICARE, SELFPAY ==
[2021-06-12 12:46] LABS: Vitamin D,25 Hydroxy 90.7 ng/mL
[2021-06-14 12:08] LABS: Free Kappa Light Chains 84.1 mg/L (3.3-19.4); Free Lambda Light Chains 40.1 mg/L (5.7-26.3); PROEL- A/G Ratio 0.6 (0.7-1.7); PROEL- Albumin 2.8 g/dL (2.9-4.4); PROEL- Alpha-1 Globulin 0.4 g/dL (0.0-0.4); PROEL- Alpha-2 Globulin 1.5 g/dL (0.4-1.0); PROEL- Beta Globulin 1.1 g/dL (0.7-1.3); PROEL- Gamma Globulin 1.6 g/dL (0.4-1.8); PROEL- Globulin, Total 4.6 g/dL (2.2-3.9); PROEL- TOTAL PROTEIN 7.4 g/dL (6.0-8.5)
== END ==
LOC: MFPLAB 10:34
PROVIDERS: PCP Family Medicine; Referring Provider Family Medicine; Visit Provider Family Medicine
DX: E34.9 Endocrine disorder, unspecified (principal); E55.9 Vitamin D deficiency, unspecified
CPT/HCPCS: 36415; 82306; 83883; 84165

== ENCOUNTER → 2021-06-20 12:30 | Outpatient (CLI) | payer MEDICARE, SELFPAY | LOC: CVS 12:31 | PROVIDERS: PCP Family Medicine; Referring Provider Family Medicine; Visit Provider Family Medicine | DX: I35.1 Nonrheumatic aortic (valve) insufficiency (principal) | CPT/HCPCS: 93306 ==

== ENCOUNTER → 2021-07-05 10:59 | Outpatient (CLI) | payer MEDICARE, SELFPAY ==
[2021-07-05 12:26] LABS: Erythrocyte Sedimentation Rate 67 mm/hr (0-30)
[2021-07-05 12:27] LABS: Absolute Lymphocyte Count 2.45 X10^3/uL (0.83-4.51); Absolute Neutrophil Count 4.4 X10^3/uL (2.0-7.7); Basophil# 0.04 X10^3/uL; Basophil% 0.5 % (0-1); Eosinophil# 0.32 X10^3/uL; Eosinophils% 4.1 % (0-5); Hematocrit 38.8 % (37-47); Hemoglobin 12.2 g/dL (12.0-15.0); Lymphocyte # 2.45 X10^3/ul (0.83-4.51); Lymphocyte % 31.4 % (19-41); Mean Corp Hgb Conc 31.4 g/dL (32-36); Mean Corpuscular Hgb 27.2 pg (27.0-32.0); Mean Corpuscular Volume 86.4 fL (81-99); Mean Platelet Vol. 10.5 fl (6.2-12.0); Monocyte# 0.62 X10^3/uL; Monocyte% 7.9 % (0-10); NRBC Flagged by Analyzer 0 % (0-5); Neutrophil # 4.36 X10^3/uL (2.7-7.7); Neutrophil % 55.8 % (47-70); Platelet Count 259 K/mm3 (150-450); Red Blood Count 4.49 M/mm3 (4.2-5.4); White Blood Count 7.8 K/mm3 (4.4-11.0)
[2021-07-05 13:37] LABS: PTHIN 147.2 pg/mL (18.4-80.1)
[2021-07-05 13:38] LABS: ALB/GLOB Ratio 0.5 RATIO (0.9-2.4); AST(SGOT) 24 U/L (15-37); Alanine Aminotransfer ALT/SGPT 35 U/L (13-56); Albumin, Serum 2.8 g/dL (3.2-5.0); Alkaline Phosphatase 117 U/L (45-117); Anion Gap 5 (5-15); BUN 11 mg/dL (7-18); BUN/Creat Ratio 14.1 RATIO (10-20); CPK Total, Creatine Kinase 29 U/L (26-192); Calcium,Total 11.1 mg/dL (8.5-10.1); Chloride 100 mmol/L (98-107); Creatinine, Serum 0.78 mg/dL (0.55-1.02); EST Glomerular Filtration Rate 76 mL/min (>60); Est Glom Filt Rate - Afr Amer 92 mL/min (>60); Globulin 5.1 g/dL (2.2-4.2); Glucose 122 mg/dL (74-106); Potassium 3.6 mmol/L (3.5-5.1); Protein, Total 7.9 g/dL (6.4-8.2); Sodium Level 134 mmol/L (136-145)
== END ==
LOC: MFPLAB 11:05
PROVIDERS: PCP Family Medicine; Referring Provider Family Medicine; Visit Provider Family Medicine
DX: R70.0 Elevated erythrocyte sedimentation rate (principal); R53.83 Other fatigue
CPT/HCPCS: 36415; 80053; 82550; 83970; 85025; 85652; 86140

== ENCOUNTER → 2021-07-31 14:13 | Outpatient (CLI) | payer MEDICARE, SELFPAY ==
--- NOTE | 2021-07-31 14:17 | US_ITS ---
STUDY: THYROID ULTRASOUND REASON FOR EXAM: Female, 76 years old. elevated PTH TECHNIQUE: Ultrasound evaluation of the thyroid was performed with real-time and static richards-scale imaging. COMPARISON: 10/04/2020 FINDINGS: RIGHT LOBE: The right lobe of the thyroid gland measures 5.9 x 2.7 cm. There is a homogeneous echotexture. There are nodules. 3 largest nodules were measured. Heterogeneous superior nodule measures 15 x 16 x 11 mm. The lesion is solid with regular margins and intra-nodular doppler flow. Heterogeneous mid nodule measures 23 x 19 x 18 mm. The lesion is solid with regular margins and intra-nodular doppler flow. Inferior nodule measures 15 x 16 x 17 mm. The lesion is solid with regular margins and jeanne nodular doppler flow. LEFT LOBE: The left lobe of the thyroid gland measures 5.6 x 2.4 cm. There is a homogeneous echotexture. There are nodules. 3 largest were measured. Heterogeneous superior nodule measures 29 x 24 x 17 mm. The lesion is solid with regular margins and jeanne nodular doppler flow. Heterogeneous mid nodule measures 13 x 14 x 9 mm. The lesion is solid with regular margins and jeanne nodular doppler flow. Calcified inferior nodule measures 21 x 21 x 16 mm. The lesion is solid with regular margins and intra-nodular doppler flow. ISTHMUS: The isthmus measures 5 mm. The regional lymph nodes are normal. US/Thyroid IMPRESSION: There are RIGHT superior nodule has decreased in size but it is suspicious. This nodule is mixed cystic and solid, hyperechoic or isoechoic, [id number], smoothly marginated, is peripherally calcified and contains punctate echogenic foci. TI-RADS points: 7. TI-RADS category: TR5. This nodule is highly suspicious. Recommend FNA evaluation. There are left nodules. This nodule is mixed cystic and solid, hyperechoic or isoechoic, [id number], smoothly marginated and contains no echogenic foci. TI-RADS points: 2. TI-RADS category: TR2. This nodule is not suspicious and no FNA or follow-up is necessary. Electronically Signed: Eliezer Gilliam MD at 16:37 EST , Service support ,
--- NOTE | 2021-07-31 14:17 | CT_ITS ---
EXAM: CT CHEST WITH INTRAVENOUS CONTRAST CLINICAL INDICATION: elevated PTH/ESR/CRP Technologist Notes HX LEFT BREAST CANCER, LUMPECTOMY, CHEMO/RADIATION TECHNIQUE: Helically acquired images were obtained of the chest with intravenous contrast. This CT exam was performed using one or more of the following dose reduction techniques: automated exposure control, adjustment of the mA and/or kV according to patient size, and/or use of iterative reconstruction technique. This report was created using [employer] report generation technology. CONTRAST: IV 100mL [id number]-370 COMPARISON: Mar 22 2021 4:05pm CTAP FINDINGS: LUNGS AND PLEURAL SPACES: There is no pneumothorax. There is no demonstrated pleural abnormality. There are scattered blebs and bullae. This can be seen in pulmonary emphysema. The thyroid is heterogenous. It contains nodules. This should be further evaluated with ultrasound. This can be performed as an outpatient. HEART: There are calcifications of the coronary arteries. Heart size is normal. No pericardial effusion. MEDIASTINUM: Unremarkable. No mediastinal or hilar adenopathy. Esophagus is unremarkable. No hiatal hernia. THYROID: The thyroid is heterogenous. It contains nodules. This should be further evaluated with ultrasound. This can be performed as an outpatient. BONES/JOINTS: There are degenerative changes of the shoulders. There are multi-level degenerative changes of the thoracic spine. No suspicious lytic or blastic abnormality. SOFT TISSUES: There are multiple metallic clips in the left axilla. This is consistent for a prior axillary dissection. There are mastectomy changes noted. VASCULATURE: 27 mm focal aneurysmal dilation of the distal thoracic aorta. There is atherosclerotic calcification of the aortic arch with tortuosity and elongation of the aortic arch and descending thoracic aorta. No thoracic aortic dissection. No obvious central pulmonary embolism although this study was not performed with the pulmonary embolism protocol. GALLBLADDER AND BILE DUCTS: Cholelithiasis. Gallstones in the gallbladder. SPLEEN: 25 mm hypodensity in the spleen. This is 58HOUNSFIELD units. It is enlarged in appearance since the prior study. ACR White Paper guidelines (Nieves, et al. JACR 2013; 10(11):833-9) suggest further evaluation with PET, abdominal MRI or biopsy. CT/Chest WITH Contrast IMPRESSION: 1. 25 mm hypodensity in the spleen. This is 58HOUNSFIELD units. It is enlarged in appearance since the prior study. ACR White Paper guidelines (Helmarcio, et al. JACR 2013; 10(11):833-9) suggest further evaluation with PET, abdominal MRI or biopsy. 2. The thyroid is heterogenous. It contains nodules. This should be further evaluated with ultrasound. This can be performed as an outpatient. 3. Cholelithiasis. 4. 27 mm focal aneurysmal dilation of the distal thoracic aorta. Electronically Signed: Eliezer Gilliam MD at 15:23 EST , Service support ,
== END ==
LOC: CT 14:16
PROVIDERS: PCP Family Medicine; Referring Provider Family Medicine; Visit Provider Family Medicine
DX: E34.9 Endocrine disorder, unspecified (principal); Z85.3 Personal history of malignant neoplasm of breast
CPT/HCPCS: 71260; 76536; Q9967

== ENCOUNTER → 2021-08-21 13:46 | Outpatient (CLI) | payer MEDICARE, SELFPAY ==
--- NOTE | 2021-08-21 13:48 | BI_ITS ---
MAMMOGRAPHY - BILATERAL SCREENING REASON FOR EXAM: Female, 76 years old. Routine annual screening examination. PERTINENT HISTORY: Personal history of breast cancer. Prior left lumpectomy and radiation. Daughter with breast cancer. Sister with breast cancer. TECHNIQUE: Digital bilateral breast ceasar (3D mammographic acquisition) in the CC and MLO projections. 2-D mediolateral oblique (MLO) and craniocaudad (CC) views of both breasts were obtained. CAD: Full Field Digital Mammography with Computer Added Detection was performed. COMPARISON: Comparison is made with prior study dated 04/19/2019 and 01/08/2017. FINDINGS: Breast Composition: The breasts are heterogeneously dense, which may obscure small masses. There are no dominant masses or suspicious calcifications. The patient is status post lumpectomy in the inferior slightly medial aspect of the left breast with resultant deformity and overlying skin thickening. Stable bilateral calcifications. Stable benign-appearing bilateral axillary lymph nodes. No other significant abnormalities are identified. There has been no significant change since the prior study. BI/SCRN MAMM (CAD)W/CEASAR BILAT IMPRESSION: Stable bilateral screening mammogram. Yearly follow-up mammogram recommended. (A) ASSESSMENT CATEGORY: BIRADS Category 2: Benign. A letter regarding these results will be sent to the patient by the facility within 30 days. Approximately 10% of breast cancers are not detected by mammography. A normal mammogram should not delay biopsy of a clinically suspicious abnormality. [id number] Electronically Signed: Robert Randall MD at 14:22 EST , Service support ,
== END ==
PROVIDERS: PCP Family Medicine; Referring Provider Surgery; Visit Provider Surgery
DX: Z12.31 Encounter for screening mammogram for malignant neoplasm of breast (principal)
CPT/HCPCS: 77063; 77067

== ENCOUNTER 2021-09-13 09:41 | Outpatient (CLI) | payer MEDICARE, SELFPAY ==
--- NOTE | 2021-09-13 09:45 | NM_ITS ---
CLINICAL: 76-year-old female with reported history of clinical hyperparathyroidism. 99m Tc SESTAMIBI DUAL PHASE PLANAR and SPECT-CT PARATHYROID SCINTIGRAPHY COMPARISON: Thyroid ultrasound report 07/31/2021 FINDINGS: Following the intravenous administration of 25.2 mCi of 99m Tc sestamibi, planar image acquisitions of the anterior neck at 15 minutes and approximately 3.0 hours post radiopharmaceutical provision and SPECT reconstructions obtained at 3 hours following tracer injection reveal: 1. Immediate static blood pool acquisitions demonstrate relatively uniform distribution of the radiopharmaceutical in the right-left lobes of a visualized U-shaped prominent sized thyroid gland subtle decreased tracer uptake is defined in the midpole of the right lobe laterally. 2. Delayed planar images depict relatively symmetric incomplete washout of the radiotracer from the previously defined right-left lobes without focal retention of the radiotracer readily identified. Emission computed tomographic reconstructions of the anterior neck reveal confirmation of the planar projection findings. NM/Parathyroid SPECT w/ CONCUR CT IMPRESSION: 1. NEGATIVE 99m Tc SESTAMIBI PLANAR-SPECT PARATHYROID IMAGING DUAL PHASE EXAMINATION. 2. There is no definitive typical scintigraphic evidence of parathyroid adenoma on the current evaluation. Electronically Signed: Weston Watkins DO at 13:30 EST Tel , Service support ,
== END 2021-09-13 23:59 | disposition short-term general hospital (02) ==
LOC: NM 09:45
PROVIDERS: PCP Family Medicine; Referring Provider Surgery; Visit Provider Surgery
DX: E21.3 Hyperparathyroidism, unspecified (principal); E83.52 Hypercalcemia
CPT/HCPCS: 78072; A9500

== ENCOUNTER 2021-12-02 15:24 | Outpatient (CLI) | payer MEDICARE, SELFPAY | END 2021-12-02 23:59 | disposition home or self-care (01) | LOC: LABSPEC 15:25 | PROVIDERS: PCP Family Medicine; Visit Provider Nurse Practitioner Women's Health | DX: N89.8 Other specified noninflammatory disorders of vagina (principal) | CPT/HCPCS: 87070; 87075; 87077; 87186; 87205 ==

== ENCOUNTER → 2022-02-27 | Outpatient (CLI) | payer MEDICARE, SELFPAY ==
--- NOTE | 2022-02-27 15:32 | US_ITS ---
STUDY: RENAL ULTRASOUND - COMPLETE REASON FOR EXAM: Female, 77 years old. NEUROGENIC BLADDER/BLADDER RETENTION TECHNIQUE: Ultrasound evaluation of the kidneys was performed with real-time and static mosqueda-scale imaging. COMPARISON: CT chest 07/31/2021, CT abdomen pelvis 03/22/2021. FINDINGS: RIGHT KIDNEY: Length: 9.7 cm Parenchyma: Unremarkable. Hydronephrosis: None. LEFT KIDNEY: Length: 11.4 cm Parenchyma: Unremarkable. Hydronephrosis: None. BLADDER: Mildly distended. Bladder volume 146 mL. Contour deformity along the posterior margin with adjacent structure probably bowel but not completely assessed. No definite bladder wall thickening. No debris. Right ureteral jet was visualized, the left jet was not visualized. SPLEEN: Focal hypoechoic lesion centrally 2.8 x 2.4 x 2.6 cm. US/Kidney and Bladder IMPRESSION: No hydronephrosis. Contour abnormality of the posterior bladder wall likely adjacent bowel or potentially uterus but cannot exclude other process or mass. Splenic mass 2.8 cm, previously measured 2.[address] chest from 07/31/2021. Electronically Signed: Selam Hebert MD at 7:07 EDT ,
== END | disposition home or self-care (01) ==
LOC: US 15:31
PROVIDERS: PCP Family Medicine; Visit Provider Urology
DX: N31.9 Neuromuscular dysfunction of bladder, unspecified (principal); R33.9 Retention of urine, unspecified; R16.1 Splenomegaly, not elsewhere classified
CPT/HCPCS: 76770

== ENCOUNTER 2022-03-25 14:41 | Emergency (ER) | payer MEDICARE, SELFPAY ==
[2022-03-25 14:42] VITALS: BP 127/62; PULSE 113; RESP 16; TEMP 36.3; O2SAT 99; BMI 30.9
--- NOTE | 2022-03-25 15:17 | EDS_ITS ---
HPI History of Present Illness Chief Complaint: Nausea/Vomiting Informant: patient Narrative Narrative: 77-year-old female presenting to the emergency room chief complaint of vomiting. Patient states that on Thursday evening she began to have emesis. She vomited t wice on Thursday and twice on Thursday. She vomited 1 time yesterday and has not vomited yet today. She notes that yesterday she was sweaty with body aches. She notes rhinorrhea and a cough. She notes constipation. She denies any known fever. She has neurogenic bladder and self caths and noticed that the urine seems more cloudy than normal. She states that she has felt some lower back pain near her kidneys. She notes that she has been able to drink fluids but today has not had anything to eat. She states that she is hungry and would like some saltines. [facility] Medical History Anemia Anxiety Aortic stenosis Asthma Asthma Carpal tunnel syndrome of right wrist Cellulitis and abscess of finger, unspecified Chronic idiopathic constipation Chronic renal failure, stage 3 (moderate) Colon polyp COPD (chronic obstructive pulmonary disease) COPD (chronic obstructive pulmonary disease) Depression Diabetes Diabetic retinopathy Foraminal stenosis of lumbar region Former smoker GERD (gastroesophageal reflux disease) GERD (gastroesophageal reflux disease) Goiter, nontoxic, multinodular History of constipation History of malignant neoplasm of breast Hx of venous thrombosis and embolism Hypercalcemia Hypercholesteremia Hyperlipidemia Hypertension Hypertension Hypokalemia Hyponatremia Hypophosphatemia Iron deficiency anemia Irregular heart beat Leg weakness, bilateral Lumbar spinal stenosis Microcytic anemia Multiple thyroid nodules Neurogenic bladder Paronychia of left index finger Peripheral artery disease Polypharmacy Pruritus Retinopathy Rhinitis Strain of right rotator cuff capsule Thyroid goiter Type 2 diabetes mellitus Urinary retention with incomplete bladder emptying Urine retention UTI (urinary tract infection) Vaginal cyst Vitamin D deficiency Home Medications lisinopril 40 mg tablet 40 mg PO BID BP 12/25/14 [History Last Taken 07/10/20 06:30] aspirin 81 mg chewable tablet 81 mg PO DAILY@0800 cardiac health 01/21/16 [History Last Taken 01/20/16] albuterol sulfate 90 mcg/actuation aerosol inhaler 2 puff inhalation Q4H PRN PRN Sob &/Or Wheezing 08/16/18 [History Last Taken 07/10/20 06:30] diltiazem HCl 180 mg tablet,extended release 24 hr 180 mg PO DAILY BLOOD PRESSURE 08/16/18 [History Last Taken 07/10/20 06:30] magnesium oxide 400 mg (241.3 mg magnesium) tablet 400 mg PO BID SUPPLEMENT 08/16/18 [History Last Taken Unknown] metoprolol tartrate 25 mg tablet 25 mg PO BID BLOOD PRESSURE 08/16/18 [History Last Taken 07/10/20 06:30] insulin aspart U-100 100 unit/mL subcutaneous solution 20 unit SQ BIDCM diabetes 12/02/19 [History Last Taken Unknown] insulin detemir U-100 100 unit/mL (3 mL) subcutaneous pen 52 units subcut BIDCM DIABETES 12/02/19 [History Last Taken Unknown] pantoprazole 40 mg tablet,delayed release 40 mg PO QHS reflux 12/02/19 [History Last Taken 07/10/20 06:30] polyethylene glycol 3350 17 gram oral powder packet 0.5 ea PO BID constipation 12/02/19 [History Last Taken Unknown] vitamin C 500 mg-multivitamin with minerals chewable tablet 250 mg PO DAILY vitamin 12/02/19 [History Last Taken Unknown] gabapentin 300 mg capsule 100 mg PO QHS 01/24/20 [History Last Taken Unknown] empagliflozin 10 mg tablet (Jardiance) 10 mg PO DAILY 10/18/20 [History Last Taken Unknown] sitagliptin 50 mg tablet (Januvia) 50 mg PO DAILY 10/18/20 [History Last Taken Unknown] azelastine 137 mcg (0.1 %) nasal spray aerosol 1 spray intranasal BID 12/06/21 [History Last Taken Unknown] budesonide-formoterol HFA 160 mcg-4.5 mcg/actuation aerosol inhaler (Symbicort) 2 puff inhalation BID 12/06/21 [History Last Taken Unknown] cholecalciferol (vitamin D3) 1,250 mcg (50,000 unit) capsule 1,250 mcg PO QWEEK 12/06/21 [History Last Taken Unknown] cod liver oil 1 cap PO DAILY 12/06/21 [History Last Taken Unknown] multivitamin 1 tab PO DAILY 12/06/21 [History Last Taken Unknown] potassium chloride 20 mEq tablet,extended release(part/cryst) (Klor-Con M) 40 meq PO BID 12/06/21 [History Last Taken Unknown] pravastatin 20 mg tablet 20 mg PO DAILY 12/06/21 [History Last Taken Unknown] psyllium husk 0.4 gram capsule (Daily Fiber) 0.4 g PO DAILY 12/06/21 [History Last Taken Unknown] roflumilast 250 mcg tablet (Daliresp) 500 mcg PO DAILY 12/06/21 [History Last Taken Unknown] azithromycin 250 mg tablet See Rx Instructions PO .COMPLEX #6 tabs 02/26/22 [Rx Last Taken Unknown] ciprofloxacin HCl 500 mg tablet 500 mg PO BID #14 TABLETS 03/25/22 [Rx Last Taken Unknown] ondansetron 4 mg disintegrating tablet 4 mg PO Q6H PRN PRN Nausea #15 tabs 03/25/22 [Rx Last Taken Unknown] Allergy/AdvReac Type Severity Reaction Status Date / Time amoxicillin Allergy YEAST Verified 03/25/22 14:45 INFECTION cephalexin monohydrate Allergy Rash Verified 03/25/22 14:45 [From Keflex] clopidogrel bisulfate Allergy Other Verified 03/25/22 14:45 [From Plavix] cloth tap Allergy Other Uncoded 03/25/22 14:45 Family History Daughter Breast cancer Father Hypertension Sister Cancer Kidney disease Mother Pancreatic cancer Surgical History H/O dilation and curettage (~07/10/20) History of Achilles tendon repair History of lumpectomy of left breast Retinopathy S/P fine needle aspiration (~10/2020) Social History household members: spouse Smoking Status: Former smoker alcohol intake: never substance use type: does not use caffeine: Yes what type of physical activity do you participate in: none seatbelt use: always do you feel safe at home: Yes additional social history: [employer]- retired ROS ROS ED Constitutional Constitutional ED: Reports sweats; Denies chills or weight loss Eyes Eyes: Denies change in vision or diplopia ENT ENT ED: Reports rhinorrhea; Denies ear pain or sore throat Cardiovascular Cardiovascular: Denies chest pain, orthopnea, palpitations or racing heartbeat Respiratory/Chest Respiratory/Chest: Reports cough; Denies dyspnea or orthopnea Gastrointestinal Gastrointestinal: Reports constipation, nausea and vomiting; Denies abdominal pain or diarrhea Genitourinary Genitourinary ED: Denies dysuria, hematuria or urinary frequency Musculoskeletal Musculoskeletal: Reports back pain and myalgias; Denies arthralgias Integumentary Denies abscess or rash Neurologic Neurologic: Denies headache(s) or weakness Psychiatric Psychiatric: Denies anxiety, depression, suicidal ideation or suicidal thoughts Endocrine Endocrinology: Denies polydipsia, polyphagia or polyuria Allergic/Immunologic Allergic/Immunologic ED: Denies mouth swelling, tongue swelling or urticaria EXAM Physical Exam Const Vital Signs: 03/25/22 14:42 Temperature 97.4 F L Temperature Source Temporal Pulse Rate 113 H Respiratory Rate 16 Blood Pressure 127/62 H Blood Pressure Mean 83 Pulse Ox 99 Oxygen Delivery Method Room Air Positive well nourished and well developed General Appearance ED: well developed HEENT Reports normocephalic, head/scalp atraumatic and moist mucous membranes Eyes PERRL and EOMs intact bilaterally Neck no lymphadenopathy, supple and no JVD Resp normal respiratory effort and clear to auscultation bilaterally Cardio regular rhythm and no murmurs Rate: tachycardic GI normal to inspection, nondistended, normoactive bowel sounds and non-tender Palpation: soft Back/Spine no CVA tenderness and normal ROM Extremity normal to inspection General Extremety ED: Negative for edema General Extremity: Negative for edema Neuro oriented x3 and CN's II-XII intact bilaterally Sensorium / Orientation: alert Motor Exam: strength 5/5 throughout Psych mental status grossly normal Mood & Affect: Negative for depressed or tearful Skin no rashes or lesions noted and no wounds MDM MDM MDM Narrative Medical decision making narrative: Rapid COVID is negative. Blood work showed a white count of 9.7 sodium of 134 potassium 4.1. BUN of 24 with a creatinine 1.04. Urinalysis demonstrates greater than 100 white cells 10-25 red cells leukocyte Estrace positive and 4+ bacteria. There was some squamous cells but I think given that the patient is noticing a change in her urine and with the above findings that we can culture and treat. I wrote for her to have some Zofran at home as well. Lab Data Attestation: I reviewed the patient's lab results. Labs: Laboratory Results - last 24 hr 07/03/25/22 03/25/22 15:29 15:29 15:55 WBC 9.7 RBC 4.64 Hgb 13.2 Hct 41.7 MCV 89.9 MCH 28.4 MCHC 31.7 L RDW Std Deviation 45.1 H RDW Coeff of Vijay 13.9 Plt Count 268 MPV 9.9 Immature Gran % (Auto) 0.300 Neut % (Auto) 62.6 Lymph % (Auto) 26.7 Divide % (Auto) 8.8 Eos % (Auto) 1.2 Baso % (Auto) 0.4 Absolute Neuts (auto) 6.0 Absolute Lymphs (auto) 2.58 Nucleated RBC % 0 Sodium 134 L Potassium 4.1 Chloride 100 Carbon Dioxide 25.0 Anion Gap 9 BUN 24 H Creatinine 1.04 H Estim Creat Clear Calc 36.88 Est GFR (MDRD) Af Amer 66 Est GFR (MDRD) Non-Af 54 L BUN/Creatinine Ratio 23.1 H Glucose 91 Calcium 12.1 H Total Bilirubin 0.40 AST 24 ALT 23 Alkaline Phosphatase 114 Total Protein 8.6 H Albumin 3.3 Globulin 5.3 H Albumin/Globulin Ratio 0.6 L Lipase 71 L Urine Color Yellow Urine Clarity Cloudy Urine pH 5.0 Ur Specific [place] 1.025 Urine Protein 100 H Urine Glucose (UA) 1000 H Urine Ketones 50 H Urine Occult Blood 250 H Urine Nitrite Negative Urine Bilirubin 1 H Urine Urobilinogen 1 H Ur Leukocyte Esterase 500 H Urine RBC 10-25 SEEN Urine WBC >100 SEEN Ur Squamous Epith Cells 5-10 SEEN Urine Bacteria 4+ Fine Granular Casts 5-10 SEEN Urine Mucus 0 SEEN Discharge Plan Triage Chief Complaint: Nausea/Vomiting ED Provider: Handy Contreras Dx/Rx/DC Orders Clinical Impression: Vomiting, Neurogenic bladder, Acute cystitis Instructions: ED Vomiting (Adult) Prescriptions: New ciprofloxacin HCl [ciprofloxacin HCl] 500 mg tablet 500 mg PO BID Qty: 14 0RF ondansetron [ondansetron] 4 mg tablet,disintegrating 4 mg PO Q6H PRN PRN (Reason: Nausea) Qty: 15 0RF No Action gabapentin 300 mg capsule 100 mg PO QHS Januvia 50 mg tablet 50 mg PO DAILY Jardiance 10 mg tablet 10 mg PO DAILY azelastine 137 mcg (0.1 %) aerosol,spray 1 spray intranasal BID Rx Instructions: administer into each nostril cod liver oil Capsule 1 cap PO DAILY Daliresp 250 mcg tablet 500 mcg PO DAILY psyllium husk [Daily Fiber] 0.4 gram capsule 0.4 g PO DAILY multivitamin Tablet 1 tab PO DAILY pravastatin 20 mg tablet 20 mg PO DAILY potassium chloride [Klor-Con M20] 20 mEq tablet,ER particles/crystals 40 meq PO BID budesonide-formoterol [Symbicort] 160-4.5 mcg/actuation HFA aerosol inhaler 2 puff inhalation BID cholecalciferol (vitamin D3) 1,250 mcg (50,000 unit) capsule 1,250 mcg PO QWEEK azithromycin 250 mg tablet See Rx Instructions PO .COMPLEX Qty: 6 0RF Rx Instructions: For 250 mg dose pack: take 500 mg today (day 1), then 250 mg for 4 days (days 2-5) PO lisinopril 40 MG tablet 40 mg PO BID Label Comments: bp aspirin 81 MG tablet,chewable 81 mg PO DAILY@0800 Label Comments: heart health metoprolol tartrate 25 MG tablet 25 mg PO BID magnesium oxide 400 MG tablet 400 mg PO BID diltiazem HCl 180 MG tablet extended release 24 hr 180 mg PO DAILY albuterol sulfate 1 INHALER inhaler 2 puff INHALATION Q4H PRN PRN (Reason: Sob &/Or Wheezing) polyethylene glycol 3350 17 GM packet 0.5 ea PO BID Rx Instructions: 1/4-1/2 capful before each meal pantoprazole 40 MG tablet 40 mg PO QHS insulin detemir U-100 100 UNITS/ML insulin pen 52 units SC BIDCM Label Comments: diabetic medication Rx Instructions: . insulin aspart U-100 100 UNIT/ML solution 20 unit SQ BIDCM vitamin J-nyebaynjsbjf-djuohxy 500 MG tablet,chewable 250 mg PO DAILY Primary Care Provider: Ramone Smiley Referrals: Ramone Smiley MD [Primary Care Provider] - As Needed Disposition Disposition: Home, Self Care
[2022-03-25] MEDS: 0.9% Normal Saline 1,000 ML 1000 ML IV (15:31)
[2022-03-25 15:41] LABS: Absolute Lymphocyte Count 2.58 X10^3/uL (0.83-4.51); Basophil# 0.04 X10^3/uL; Basophil% 0.4 % (0-1); Eosinophil# 0.12 X10^3/uL; Eosinophils% 1.2 % (0-5); Hematocrit 41.7 % (37-47); Hemoglobin 13.2 g/dL (12.0-15.0); Lymphocyte # 2.58 X10^3/ul (0.83-4.51); Lymphocyte % 26.7 % (19-41); Mean Corp Hgb Conc 31.7 g/dL (32-36); Mean Corpuscular Hgb 28.4 pg (27.0-32.0); Mean Corpuscular Volume 89.9 fL (81-99); Mean Platelet Vol. 9.9 fl (6.2-12.0); Monocyte# 0.85 X10^3/uL; Monocyte% 8.8 % (0-10); NRBC Flagged by Analyzer 0 % (0-5); Neutrophil # 6.04 X10^3/uL (2.7-7.7); Neutrophil % 62.6 % (47-70); Platelet Count 268 K/mm3 (150-450); RBC Distribution Width CV 13.9 % (11.6-14.6); RBC Distribution Width SD 45.1 fl (35.1-43.9); Red Blood Count 4.64 M/mm3 (4.2-5.4); White Blood Count 9.7 K/mm3 (4.4-11.0)
[2022-03-25 15:54] LABS: ALB/GLOB Ratio 0.6 RATIO (0.9-2.4); AST(SGOT) 24 U/L (15-37); Alanine Aminotransfer ALT/SGPT 23 U/L (13-56); Albumin, Serum 3.3 g/dL (3.2-5.0); Alkaline Phosphatase 114 U/L (45-117); Anion Gap 9 (5-15); BUN 24 mg/dL (7-18); BUN/Creat Ratio 23.1 RATIO (10-20); Calcium,Total 12.1 mg/dL (8.5-10.1); Chloride 100 mmol/L (98-107); Creatinine, Serum 1.04 mg/dL (0.55-1.02); EST Glomerular Filtration Rate 54 mL/min (>60); Est Glom Filt Rate - Afr Amer 66 mL/min (>60); Estimated Creatinine Clearance 36.88 ml/min; Globulin 5.3 g/dL (2.2-4.2); Glucose 91 mg/dL (74-106); Lipase 71 U/L (73-393); Potassium 4.1 mmol/L (3.5-5.1); Protein, Total 8.6 g/dL (6.4-8.2); Sodium Level 134 mmol/L (136-145)
[2022-03-25 16:06] LABS: Mucous, Urine 0 SEEN /hpf (<or=2+)
[2022-03-25 16:15] LABS: Color, Urine Yellow (Yellow); Glucose, Dipstick 1000 mg/dl (Normal); Ketone-Dipstick 50 mg/dl (Negative); Leukocyte Esterase-Dipstick 500 /ul (Negative); Nitrite-Dipstick Negative (Negative); Occult Blood-Urine 250 /ul (Negative); Protein-Dipstick 100 mg/dl (Negative); Specific Gravity, Urine 1.025 (1.002-1.030); Urine Clarity Cloudy (Clear); Urine Urobilinogen 1 mg/dl (Normal)
[2022-03-25 16:36] LABS: Urine Bilirubin Dipstick 1 mg/dL (Negative)
[2022-03-25 16:39] LABS: Bacteria 4+ /hpf (None Seen); Red Blood Cells-Urine 10-25 SEEN /hpf (0-5); Squamous Epithelial Cells - UA 5-10 SEEN /hpf (5-10); White Blood Cells >100 SEEN /hpf (0-5)
[2022-03-25 16:40] LABS: Fine Granular Cast- Urine 5-10 SEEN /lpf (0-5)
== END 2022-03-25 17:22 | disposition home or self-care (01) ==
PROVIDERS: Emergency Provider Emergency Medicine; PCP Family Medicine; Visit Provider Emergency Medicine
DX: N30.00 Acute cystitis without hematuria (principal); J44.9 Chronic obstructive pulmonary disease, unspecified; E11.22 Type 2 diabetes mellitus with diabetic chronic kidney disease; N18.30 Chronic kidney disease, stage 3 unspecified; I12.9 Hypertensive chronic kidney disease with stage 1 through stage 4 chronic kidney disease, or unspecified chronic kidney disease; N31.9 Neuromuscular dysfunction of bladder, unspecified; E78.5 Hyperlipidemia, unspecified; Z20.822 Contact with and (suspected) exposure to COVID-19; Z87.891 Personal history of nicotine dependence; Z79.82 Long term (current) use of aspirin; Z79.899 Other long term (current) drug therapy
CPT/HCPCS: 80053; 81001; 83690; 85025; 87077; 87086; 87088; 87186; 87811; 96360; 99284; J7030; P9612; A4216

== ENCOUNTER 2022-07-14 11:51 | Emergency (ER) | payer MEDICARE, SELFPAY ==
[2022-07-14 11:59] VITALS: BP 123/68; PULSE 74; RESP 14; TEMP 36.2; O2SAT 100; BMI 31.1
--- NOTE | 2022-07-14 14:19 | EX.ED.DYSGE1 ---
HPI History of Present Illness Chief Complaint: Back Narrative Narrative: Patient presents with back pain, and has been ongoing for 4 to 5 days, it is worse when she tries to get up out of her chair or bend over however she also has relief after she self caths. She self caths daily due to bladder dysfunction. She is denying any fever or chills she has no abdominal pain. Her pain is in the right flank however it is also midline spinal region. No radicular symptoms no weakness. [facility] Medical History Anemia Anxiety Aortic stenosis Asthma Asthma Carpal tunnel syndrome of right wrist Cellulitis and abscess of finger, unspecified Chronic idiopathic constipation Chronic renal failure, stage 3 (moderate) Colon polyp COPD (chronic obstructive pulmonary disease) COPD (chronic obstructive pulmonary disease) Depression Diabetes Diabetic retinopathy Foraminal stenosis of lumbar region Former smoker GERD (gastroesophageal reflux disease) GERD (gastroesophageal reflux disease) Goiter, nontoxic, multinodular History of constipation History of malignant neoplasm of breast Hx of venous thrombosis and embolism Hypercalcemia Hypercholesteremia Hyperlipidemia Hypertension Hypertension Hypokalemia Hyponatremia Hypophosphatemia Iron deficiency anemia Irregular heart beat Leg weakness, bilateral Lumbar spinal stenosis Microcytic anemia Multiple thyroid nodules Neurogenic bladder Paronychia of left index finger Peripheral artery disease Polypharmacy Pruritus Retinopathy Rhinitis Strain of right rotator cuff capsule Thyroid goiter Type 2 diabetes mellitus Urinary retention with incomplete bladder emptying Urine retention UTI (urinary tract infection) Vaginal cyst Vitamin D deficiency Home Medications lisinopril 40 mg tablet 40 mg PO BID BP 12/25/14 [History Last Taken 07/10/20 06:30] aspirin 81 mg chewable tablet 81 mg PO DAILY@0800 cardiac health 01/21/16 [History Last Taken 01/20/16] albuterol sulfate 90 mcg/actuation aerosol inhaler 2 puff inhalation Q4H PRN PRN Sob &/Or Wheezing 08/16/18 [History Last Taken 07/10/20 06:30] diltiazem HCl 180 mg tablet,extended release 24 hr 180 mg PO DAILY BLOOD PRESSURE 08/16/18 [History Last Taken 07/10/20 06:30] magnesium oxide 400 mg (241.3 mg magnesium) tablet 400 mg PO BID SUPPLEMENT 08/16/18 [History Last Taken Unknown] metoprolol tartrate 25 mg tablet 25 mg PO BID BLOOD PRESSURE 08/16/18 [History Last Taken 07/10/20 06:30] insulin aspart U-100 100 unit/mL subcutaneous solution 20 unit SQ BIDCM diabetes 12/02/19 [History Last Taken Unknown] insulin detemir U-100 100 unit/mL (3 mL) subcutaneous pen 52 units subcut BIDCM DIABETES 12/02/19 [History Last Taken Unknown] pantoprazole 40 mg tablet,delayed release 40 mg PO QHS reflux 12/02/19 [History Last Taken 07/10/20 06:30] polyethylene glycol 3350 17 gram oral powder packet 0.5 ea PO BID constipation 12/02/19 [History Last Taken Unknown] vitamin C 500 mg-multivitamin with minerals chewable tablet 250 mg PO DAILY vitamin 12/02/19 [History Last Taken Unknown] gabapentin 300 mg capsule 100 mg PO QHS 01/24/20 [History Last Taken Unknown] empagliflozin 10 mg tablet (Jardiance) 10 mg PO DAILY 10/18/20 [History Last Taken Unknown] sitagliptin phosphate 50 mg tablet (Januvia) 50 mg PO DAILY 10/18/20 [History Last Taken Unknown] azelastine 137 mcg (0.1 %) nasal spray aerosol 1 spray intranasal BID 12/06/21 [History Last Taken Unknown] budesonide-formoterol HFA 160 mcg-4.5 mcg/actuation aerosol inhaler (Symbicort) 2 puff inhalation BID 12/06/21 [History Last Taken Unknown] cholecalciferol (vitamin D3) 1,250 mcg (50,000 unit) capsule 1,250 mcg PO QWEEK 12/06/21 [History Last Taken Unknown] cod liver oil 1 cap PO DAILY 12/06/21 [History Last Taken Unknown] multivitamin 1 tab PO DAILY 12/06/21 [History Last Taken Unknown] potassium chloride 20 mEq tablet,extended release(part/cryst) (Klor-Con M) 40 meq PO BID 12/06/21 [History Last Taken Unknown] pravastatin 20 mg tablet 20 mg PO DAILY 12/06/21 [History Last Taken Unknown] psyllium husk 0.4 gram capsule (Daily Fiber) 0.4 g PO DAILY 12/06/21 [History Last Taken Unknown] roflumilast 250 mcg tablet (Daliresp) 500 mcg PO DAILY 12/06/21 [History Last Taken Unknown] dulaglutide 0.75 mg/0.5 mL subcutaneous pen injector (Trulicity) 0.75 mg subcut QWEEK 07/07/22 [History Last Taken Unknown] hydrocodone-acetaminophen 5-325mg 5mg-325mg 1 tab PO Q6H PRN pain 3 days #10 tabs 07/14/22 [Rx Last Taken Unknown] sulfamethoxazole 800 mg-trimethoprim 160 mg tablet (Bactrim DS) 1 tab PO BID #14 tabs 07/14/22 [Rx Last Taken Unknown] Allergy/AdvReac Type Severity Reaction Status Date / Time amoxicillin Allergy YEAST Verified 07/14/22 12:01 INFECTION cephalexin monohydrate Allergy Rash Verified 07/14/22 12:01 [From Keflex] clopidogrel bisulfate Allergy Other Verified 07/14/22 12:01 [From Plavix] cloth tap Allergy Other Uncoded 07/14/22 12:01 Family History Daughter Breast cancer Father Hypertension Sister Cancer Kidney disease Mother Pancreatic cancer Surgical History H/O dilation and curettage (~07/10/20) History of Achilles tendon repair History of lumpectomy of left breast Retinopathy S/P fine needle aspiration (~10/2020) Social History household members: spouse Smoking Status: Former smoker alcohol intake: never substance use type: does not use caffeine: Yes what type of physical activity do you participate in: none seatbelt use: always do you feel safe at home: Yes additional social history: [employer]- retired ROS ROS ED ROS Narrative Past medical history: Reviewed it is quite extensive. Medications: Reviewed Social history: Lives at home Review of systems: All systems negative except as indicated General: No fever Eyes: No visual changes ENT: No upper airway congestion, normal voice Neck: No neck pain Cardiovascular: No chest pain Respiratory: No shortness of breath or cough Gastrointestinal: No abdominal pain, nausea vomiting or diarrhea Genitourinary: Chronic urinary retention. No new symptoms Musculoskeletal: Back pain as in HPI Skin: No rash Neurological: No memory loss, confusion or any focal weakness Psych: No recent behavioral changes Hematologic: No easy bleeding or easy bruising EXAM Physical Exam Narrative Exam Narrative: Physical exam General: Patient seems relatively comfortable sitting in a chair as I walk into the room. Head: Normocephalic, Atraumatic Eyes: Conjunctiva not pale ENT: Moist mucous membranes Neck: Supple, Nontender, No lymphadenopathy Cardiovascular: Regular rate, Regular rhythm Respiratory: No distress, CTA bilaterally Abdomen: Soft, Nontender, Nondistended Back: Tenderness over the right CVA region however she also has lumbar tenderness both of which are reproducible. Extremities: Nontender, No edema Skin: Normal color, No rash Neurological: Alert, Normal Strength, Normal Sensation. Negative straight leg test. Normal patellar and Achilles reflexes. Psychological: Normal affect Const Vital Signs: 07/14/22 11:59 07/14/22 16:48 Temperature 97.2 F L Temperature Source Temporal Pulse Rate 74 68 Respiratory Rate 14 18 Blood Pressure 123/68 H 166/69 H Blood Pressure Mean 86 101 Pulse Ox 100 99 Oxygen Delivery Method Room Air Room Air MDM MDM MDM Narrative Medical decision making narrative: Patient's work-up is unremarkable, she has mechanical pain but she also has a slight UTI which I will treat. I will send culture. She otherwise has no evidence of pyelonephritis or sepsis. She appears well 8 in the ED and I will discharge in stable condition Lab Data Labs: Laboratory Results - last 24 hr 07/14/22 07/14/22 07/14/22 14:30 14:30 15:30 WBC 8.1 RBC 4.15 L Hgb 12.0 Hct 37.7 MCV 90.8 MCH 28.9 MCHC 31.8 L RDW Std Deviation 49.9 H RDW Coeff of Vijay 15.1 H Plt Count 267 MPV 10.2 Immature Gran % (Auto) 0.400 Neut % (Auto) 54.7 Lymph % (Auto) 34.4 [place] % (Auto) 6.8 Eos % (Auto) 3.2 Baso % (Auto) 0.5 Absolute Neuts (auto) 4.5 Absolute Lymphs (auto) 2.79 Nucleated RBC % 0 Sodium 136 Potassium 4.9 Chloride 102 Carbon Dioxide 31.0 Anion Gap 3 L BUN 14 Creatinine 0.95 Estim Creat Clear Calc 40.37 Est GFR (MDRD) Af Amer 73 Est GFR (MDRD) Non-Af 60 BUN/Creatinine Ratio 14.7 Glucose 143 H Calcium 11.4 H Total Bilirubin 0.30 AST 44 H ALT 33 Alkaline Phosphatase 131 H Total Protein 8.3 H Albumin 3.3 Globulin 5.0 H Albumin/Globulin Ratio 0.7 L Urine Color Yellow Urine Clarity Sl. Cloudy Urine pH 6.0 Ur Specific Bentley 1.015 Urine Protein 30 H Urine Glucose (UA) 1000 H Urine Ketones Negative Urine Occult Blood 25 H Urine Nitrite Negative Urine Bilirubin Negative Urine Urobilinogen Normal Ur Leukocyte Esterase 500 H Urine RBC 0 SEEN Urine WBC 25-50 SEEN Ur Squamous Epith Cells 0-5 SEEN Urine Bacteria 3+ Urine Mucus 0 SEEN Radiography Diagnostic Testing: Clinical Impression(s) from Imaging Studies Lumbar Spine X-Ray 07/14/22 15:03 IMPRESSION: Degenerative changes of the spine, as detailed above. Straightening of the normal lumbar lordosis. Electronically Signed: Robert Randall MD at 15:27 EST Reading Location ID and State: [address] [place] [address] , Service support , Discharge Plan Triage Chief Complaint: Back ED Provider: Joseph Lockwood Dx/Rx/DC Orders Clinical Impression: Acute UTI, Back pain Instructions: Back Safety: Standing, Back Safety: Turning, ED Cystitis Female Adult Prescriptions: New sulfamethoxazole-trimethoprim [Bactrim DS] 800-160 mg tablet 1 tab PO BID Qty: 14 0RF hydrocodone-acetaminophen 5-325 mg tablet 1 tab PO Q6H PRN (Reason: pain) 3 Days Qty: 10 0RF No Action gabapentin 300 mg capsule 100 mg PO QHS Januvia 50 mg tablet 50 mg PO DAILY Jardiance 10 mg tablet 10 mg PO DAILY azelastine 137 mcg (0.1 %) aerosol,spray 1 spray intranasal BID Rx Instructions: administer into each nostril cod liver oil Capsule 1 cap PO DAILY Daliresp 250 mcg tablet 500 mcg PO DAILY psyllium husk [Daily Fiber] 0.4 gram capsule 0.4 g PO DAILY multivitamin Tablet 1 tab PO DAILY pravastatin 20 mg tablet 20 mg PO DAILY potassium chloride [Klor-Con M20] 20 mEq tablet,ER particles/crystals 40 meq PO BID budesonide-formoterol [Symbicort] 160-4.5 mcg/actuation HFA aerosol inhaler 2 puff inhalation BID cholecalciferol (vitamin D3) 1,250 mcg (50,000 unit) capsule 1,250 mcg PO QWEEK lisinopril 40 MG tablet 40 mg PO BID Label Comments: bp aspirin 81 MG tablet,chewable 81 mg PO DAILY@0800 Label Comments: heart health metoprolol tartrate 25 MG tablet 25 mg PO BID magnesium oxide 400 MG tablet 400 mg PO BID diltiazem HCl 180 MG tablet extended release 24 hr 180 mg PO DAILY albuterol sulfate 1 INHALER inhaler 2 puff INHALATION Q4H PRN PRN (Reason: Sob &/Or Wheezing) Trulicity 0.75 mg/0.5 mL Pen Injector 0.75 mg SUBCUT QWEEK polyethylene glycol 3350 17 GM packet 0.5 ea PO BID Rx Instructions: 1/4-1/2 capful before each meal pantoprazole 40 MG tablet 40 mg PO QHS insulin detemir U-100 100 UNITS/ML insulin pen 52 units SC BIDCM Label Comments: diabetic medication Rx Instructions: . insulin aspart U-100 100 UNIT/ML solution 20 unit SQ BIDCM vitamin [id number] 500 MG tablet,chewable 250 mg PO DAILY Primary Care Provider: Ramone Smiley Referrals: Ramone Smiley MD [Primary Care Provider] - 3-5 Days Disposition Disposition: Home, Self Care
[2022-07-14 14:43] LABS: Absolute Lymphocyte Count 2.79 X10^3/uL (0.83-4.51); Absolute Neutrophil Count 4.5 X10^3/uL (2.0-7.7); Basophil# 0.04 X10^3/uL; Basophil% 0.5 % (0-1); Eosinophil# 0.26 X10^3/uL; Eosinophils% 3.2 % (0-5); Hematocrit 37.7 % (37-47); Lymphocyte # 2.79 X10^3/ul (0.83-4.51); Lymphocyte % 34.4 % (19-41); Mean Corp Hgb Conc 31.8 g/dL (32-36); Mean Corpuscular Hgb 28.9 pg (27.0-32.0); Mean Corpuscular Volume 90.8 fL (81-99); Mean Platelet Vol. 10.2 fl (6.2-12.0); Monocyte# 0.55 X10^3/uL; Monocyte% 6.8 % (0-10); NRBC Flagged by Analyzer 0 % (0-5); Neutrophil # 4.45 X10^3/uL (2.7-7.7); Neutrophil % 54.7 % (47-70); Platelet Count 267 K/mm3 (150-450); RBC Distribution Width CV 15.1 % (11.6-14.6); RBC Distribution Width SD 49.9 fl (35.1-43.9); Red Blood Count 4.15 M/mm3 (4.2-5.4); White Blood Count 8.1 K/mm3 (4.4-11.0)
[2022-07-14] MEDS: HYDROcodone Bitartrate/Apap 5/325 Tablet PO (14:56)
--- NOTE | 2022-07-14 15:03 | RAD_ITS ---
STUDY: X-RAY - LUMBAR SPINE REASON FOR EXAM: Female, 77 years old. Pain TECHNIQUE: 3 view(s) of the lumbar spine were obtained. COMPARISON: Comparison is made with prior study dated 2019. FINDINGS: There is straightening of the normal lumbar lordosis. There is no substantial scoliosis. There is a normal alignment of the vertebrae. There is multilevel endplate spondylosis of the lumbar vertebrae. There is multi-level degenerative disc disease with multi-level disc space narrowing. Facet joint osteoarthritis. There is atherosclerotic calcification of the abdominal aorta without a demonstrated aneurysm. A right-sided InterStim catheter is seen. Large amount of fecal material is seen in the colon. RAD/Lumbar Spine 2 or 3 Views IMPRESSION: Degenerative changes of the spine, as detailed above. Straightening of the normal lumbar lordosis. Electronically Signed: Robert Randall MD at 15:27 EST ,
[2022-07-14 15:04] LABS: ALB/GLOB Ratio 0.7 RATIO (0.9-2.4); AST(SGOT) 44 U/L (15-37); Alanine Aminotransfer ALT/SGPT 33 U/L (13-56); Albumin, Serum 3.3 g/dL (3.2-5.0); Alkaline Phosphatase 131 U/L (45-117); Anion Gap 3 (5-15); BUN 14 mg/dL (7-18); BUN/Creat Ratio 14.7 RATIO (10-20); Calcium,Total 11.4 mg/dL (8.5-10.1); Chloride 102 mmol/L (98-107); Creatinine, Serum 0.95 mg/dL (0.55-1.02); EST Glomerular Filtration Rate 60 mL/min (>60); Est Glom Filt Rate - Afr Amer 73 mL/min (>60); Estimated Creatinine Clearance 40.37 ml/min; Glucose 143 mg/dL (74-106); Potassium 4.9 mmol/L (3.5-5.1); Protein, Total 8.3 g/dL (6.4-8.2); Sodium Level 136 mmol/L (136-145)
[2022-07-14 15:43] LABS: Mucous, Urine 0 SEEN /hpf (<or=2+); Red Blood Cells-Urine 0 SEEN /hpf (0-5)
[2022-07-14 15:47] LABS: Color, Urine Yellow (Yellow); Glucose, Dipstick 1000 mg/dl (Normal); Ketone-Dipstick Negative (Negative); Leukocyte Esterase-Dipstick 500 /ul (Negative); Nitrite-Dipstick Negative (Negative); Occult Blood-Urine 25 /ul (Negative); Protein-Dipstick 30 mg/dl (Negative); Specific Gravity, Urine 1.015 (1.002-1.030); Urine Bilirubin Dipstick Negative (Negative); Urine Clarity Sl. Cloudy (Clear); Urine Urobilinogen Normal (Normal)
[2022-07-14 15:53] LABS: White Blood Cells 25-50 SEEN /hpf (0-5)
[2022-07-14 15:54] LABS: Bacteria 3+ /hpf (None Seen); Squamous Epithelial Cells - UA 0-5 SEEN /hpf (5-10)
[2022-07-14 16:48] VITALS: BP 166/69; PULSE 68; RESP 18; O2SAT 99
[2022-07-14] MEDS: Smz/Tmp Ds Tablet 1 TABLET PO (18:10)
[2022-07-14 18:11] VITALS: BP 174/64; PULSE 73; RESP 18; O2SAT 98
== END 2022-07-14 18:20 | disposition home or self-care (01) ==
PROVIDERS: Emergency Provider Emergency Medicine; PCP Family Medicine; Visit Provider Emergency Medicine
DX: N39.0 Urinary tract infection, site not specified (principal); J44.9 Chronic obstructive pulmonary disease, unspecified; E11.22 Type 2 diabetes mellitus with diabetic chronic kidney disease; N18.30 Chronic kidney disease, stage 3 unspecified; I12.9 Hypertensive chronic kidney disease with stage 1 through stage 4 chronic kidney disease, or unspecified chronic kidney disease; E78.5 Hyperlipidemia, unspecified; Z87.891 Personal history of nicotine dependence
CPT/HCPCS: 72100; 80053; 81001; 85025; 87077; 87086; 87088; 87186; 99285; A4216

== ENCOUNTER → 2022-08-13 | Outpatient (CLI) | payer MEDICARE, SELFPAY ==
--- NOTE | 2022-08-13 09:26 | BI_ITS ---
MAMMOGRAPHY - BILATERAL DIAGNOSTIC REASON FOR EXAM: Female, 77 years old. Prior left lumpectomy. PERTINENT HISTORY: Personal history of breast cancer. Daughter with breast cancer. Sister with breast cancer. Prior bilateral stereotactic breast biopsies. TECHNIQUE: Digital bilateral breast doyle (3D mammographic acquisition) in the CC and MLO projections. 2-D mediolateral oblique (MLO) and craniocaudad (CC) views of both breasts were obtained. CAD: Full Field Digital Mammography with Computer Added Detection was performed. COMPARISON: Comparison is made with prior examination dated 08/21/2021 and 04/19/2019. FINDINGS: Breast Composition: The breasts are heterogeneously dense, which may obscure small masses. There are no dominant masses or suspicious calcifications. Once again, the patient is status post lumpectomy in the inferior slightly medial aspect of the left breast with resultant postoperative scarring and breast deformity and skin thickening. Stable calcifications in both breasts. No other significant abnormalities are identified. There has been no significant change since the prior study. BI/DIAG MAMM W/CAD, BILMARISEL IMPRESSION: Stable bilateral diagnostic mammogram. One year follow-up recommended. (A) ASSESSMENT CATEGORY: BIRADS Category 2: Benign. A letter regarding these results will be sent to the patient by the facility within 30 days. Approximately 10% of breast cancers are not detected by mammography. A normal mammogram should not delay biopsy of a clinically suspicious abnormality. Electronically Signed: Robert Randall MD at 10:57 EST ,
== END | disposition home or self-care (01) ==
PROVIDERS: PCP Family Medicine; Visit Provider Family Medicine
DX: R92.2 Inconclusive mammogram (principal); Z85.3 Personal history of malignant neoplasm of breast; Z80.3 Family history of malignant neoplasm of breast
CPT/HCPCS: 77062; 77066; G0279

== ENCOUNTER 2022-12-09 12:51 | Outpatient (CLI) | payer MEDICARE, SELFPAY ==
[2022-12-09 15:51] LABS: ALB/GLOB Ratio 0.6 RATIO (0.9-2.4); AST(SGOT) 20 U/L (15-37); Alanine Aminotransfer ALT/SGPT 27 U/L (13-56); Albumin, Serum 3.3 g/dL (3.2-5.0); Alkaline Phosphatase 164 U/L (45-117); Anion Gap 7 (5-15); BUN 11 mg/dL (7-18); BUN/Creat Ratio 10.7 RATIO (10-20); Calcium,Total 11.4 mg/dL (8.5-10.1); Chloride 101 mmol/L (98-107); Creatinine, Serum 1.03 mg/dL (0.55-1.02); EST Glomerular Filtration Rate 55 mL/min (>60); Est Glom Filt Rate - Afr Amer 67 mL/min (>60); Globulin 5.4 g/dL (2.2-4.2); Glucose 168 mg/dL (74-106); Potassium 3.7 mmol/L (3.5-5.1); Protein, Total 8.7 g/dL (6.4-8.2); Sodium Level 133 mmol/L (136-145)
[2022-12-09 16:34] LABS: Hemoglobin A1c 7.4 % (3.8-5.6)
[2022-12-11 14:45] LABS: Vitamin D,25 Hydroxy 92.6 ng/mL
== END 2022-12-09 23:59 | disposition home or self-care (01) ==
LOC: MTLAB 12:52
PROVIDERS: PCP Family Medicine; Referring Provider Family Medicine; Visit Provider Family Medicine
DX: I10 Essential (primary) hypertension (principal); E11.49 Type 2 diabetes mellitus with other diabetic neurological complication; E55.9 Vitamin D deficiency, unspecified
CPT/HCPCS: 36415; 80053; 82306; 83036; 83970

== ENCOUNTER 2023-01-28 14:54 | Emergency (ER) | payer MEDICARE, SELFPAY ==
[2023-01-28 14:54] VITALS: BP 168/104; BP 186/69; PULSE 84; PULSE 92; RESP 16; RESP 25; TEMP 36.6; O2SAT 97; O2SAT 99; BMI 26.9
--- NOTE | 2023-01-28 15:13 | EDS_ITS ---
HPI History of Present Illness Chief Complaint: Hypertension Narrative Narrative: Patient has no symptoms. She was seen by podiatry who noticed high blood pressure and sent her to her PCP, he was busy and was sent to the ED. She has no chest pain. She has no shortness of breath. She does not have a headache she does not have any vision changes no neurological symptoms and she feels at her baseline. The only thing she is complaining about is her chronic back pain which she has every single day. [facility] Medical History Anemia Anxiety Aortic stenosis Asthma Asthma Carpal tunnel syndrome of right wrist Cellulitis and abscess of finger, unspecified Chronic idiopathic constipation Chronic renal failure, stage 3 (moderate) Colon polyp COPD (chronic obstructive pulmonary disease) COPD (chronic obstructive pulmonary disease) Depression Diabetes Diabetic retinopathy Foraminal stenosis of lumbar region Former smoker GERD (gastroesophageal reflux disease) GERD (gastroesophageal reflux disease) Goiter, nontoxic, multinodular History of constipation History of malignant neoplasm of breast Hx of venous thrombosis and embolism Hypercalcemia Hypercholesteremia Hyperlipidemia Hypertension Hypertension Hypokalemia Hyponatremia Hypophosphatemia Iron deficiency anemia Irregular heart beat Leg weakness, bilateral Lumbar spinal stenosis Microcytic anemia Multiple thyroid nodules Neurogenic bladder Paronychia of left index finger Peripheral artery disease Polypharmacy Pruritus Retinopathy Rhinitis Strain of right rotator cuff capsule Thyroid goiter Type 2 diabetes mellitus Urinary retention with incomplete bladder emptying Urine retention UTI (urinary tract infection) Vaginal cyst Vitamin D deficiency Home Medications lisinopril 40 mg tablet 40 mg PO BID BP 12/25/14 [History Last Taken 07/10/20 06:30] aspirin 81 mg chewable tablet 81 mg PO DAILY@0800 cardiac health 01/21/16 [History Last Taken 01/20/16] albuterol sulfate 90 mcg/actuation aerosol inhaler 2 puff inhalation Q4H PRN PRN Sob &/Or Wheezing 08/16/18 [History Last Taken 07/10/20 06:30] diltiazem HCl 180 mg tablet,extended release 24 hr 180 mg PO DAILY BLOOD PRESSURE 08/16/18 [History Last Taken 07/10/20 06:30] magnesium oxide 400 mg (241.3 mg magnesium) tablet 400 mg PO BID SUPPLEMENT 08/16/18 [History Last Taken Unknown] metoprolol tartrate 25 mg tablet 25 mg PO BID BLOOD PRESSURE 08/16/18 [History Last Taken 07/10/20 06:30] insulin aspart U-100 100 unit/mL subcutaneous solution 22 unit SQ BIDCM diabetes 12/02/19 [History Last Taken Unknown] insulin detemir U-100 100 unit/mL (3 mL) subcutaneous pen 56 units subcut BIDCM DIABETES 12/02/19 [History Last Taken Unknown] pantoprazole 40 mg tablet,delayed release 40 mg PO QHS reflux 12/02/19 [History Last Taken 07/10/20 06:30] polyethylene glycol 3350 17 gram oral powder packet 0.5 ea PO BID constipation 12/02/19 [History Last Taken Unknown] vitamin C 500 mg-multivitamin with minerals chewable tablet 250 mg PO DAILY vitamin 12/02/19 [History Last Taken Unknown] gabapentin 300 mg capsule 100 mg PO QHS 01/24/20 [History Last Taken Unknown] empagliflozin 10 mg tablet (Jardiance) 10 mg PO DAILY 10/18/20 [History Last Taken Unknown] sitagliptin phosphate 50 mg tablet (Januvia) 50 mg PO DAILY 10/18/20 [History Last Taken Unknown] azelastine 137 mcg (0.1 %) nasal spray aerosol 1 spray intranasal BID 12/06/21 [History Last Taken Unknown] budesonide-formoterol HFA 160 mcg-4.5 mcg/actuation aerosol inhaler (Symbicort) 2 puff inhalation BID 12/06/21 [History Last Taken Unknown] cholecalciferol (vitamin D3) 1,250 mcg (50,000 unit) capsule 1,250 mcg PO QWEEK 12/06/21 [History Last Taken Unknown] cod liver oil 1 cap PO DAILY 12/06/21 [History Last Taken Unknown] multivitamin 1 tab PO DAILY 12/06/21 [History Last Taken Unknown] potassium chloride 20 mEq tablet,extended release(part/cryst) (Klor-Con M) 40 meq PO BID 12/06/21 [History Last Taken Unknown] pravastatin 20 mg tablet 20 mg PO DAILY 12/06/21 [History Last Taken Unknown] psyllium husk 0.4 gram capsule (Daily Fiber) 0.4 g PO DAILY 12/06/21 [History Last Taken Unknown] roflumilast 250 mcg tablet (Daliresp) 500 mcg PO DAILY 12/06/21 [History Last Taken Unknown] dulaglutide 0.75 mg/0.5 mL subcutaneous pen injector (Trulicity) 0.75 mg subcut QWEEK 07/07/22 [History Last Taken Unknown] cholecalciferol (vitamin D3) 25 mcg (1,000 unit) capsule (Vitamin D3) 25 mcg PO DAILY 01/08/23 [History Last Taken Unknown] Allergy/AdvReac Type Severity Reaction Status Date / Time adhesive tape [tape] Allergy NEEDS Verified 01/28/23 14:56 FOLLOW-UP amoxicillin Allergy YEAST Verified 01/28/23 14:56 INFECTION cephalexin monohydrate Allergy Rash Verified 01/28/23 14:56 [From Keflex] clopidogrel bisulfate Allergy Other Verified 01/28/23 14:56 [From Plavix] Family History Daughter Breast cancer Father Hypertension Sister Cancer Kidney disease Mother Pancreatic cancer Surgical History H/O dilation and curettage (~07/10/20) History of Achilles tendon repair History of lumpectomy of left breast Retinopathy S/P fine needle aspiration (~10/2020) Social History household members: spouse Smoking Status: Former smoker alcohol intake: never substance use type: does not use caffeine: Yes what type of physical activity do you participate in: none seatbelt use: always do you feel safe at home: Yes additional social history: [employer]- retired ROS ROS ED ROS Narrative Past medical history: Reviewed Medications: Reviewed Social history: Noncontributory Review of systems: All systems negative except as indicated General: No fever Eyes: No visual changes ENT: No upper airway congestion, normal voice Neck: No neck pain Cardiovascular: No chest pain Respiratory: No shortness of breath or cough Gastrointestinal: No abdominal pain, nausea vomiting or diarrhea Genitourinary: No dysuria Musculoskeletal: Back pain as in HPI Skin: No rash Neurological: No memory loss, confusion or any focal weakness EXAM Physical Exam Narrative Exam Narrative: Physical exam General: Well nourished, Well developed, No Acute Distress Head: Normocephalic, Atraumatic Eyes: Conjunctiva not pale ENT: Moist mucous membranes Neck: Supple, Nontender, No lymphadenopathy Cardiovascular: Regular rate, Regular rhythm Respiratory: No distress, CTA bilaterally Abdomen: Soft, Nontender, Nondistended Back: Slight lumbar tenderness. Extremities: Nontender, No edema Skin: Normal color, No rash Neurological: Alert, Normal Strength, Normal Sensation Const Vital Signs: 01/28/23 14:54 01/28/23 14:54 01/28/23 15:13 Temperature 97.8 F Temperature Source Temporal Pulse Rate 92 84 Respiratory Rate 16 25 H Respiratory Effort Normal Blood Pressure 186/69 H 168/104 H Blood Pressure Mean 108 125 Pulse Ox 99 97 Oxygen Delivery Method Room Air Room Air MDM MDM MDM Narrative Medical decision making narrative: Patient has a history of hypertension. She appears slightly dehydrated I gave h er fluids and her blood pressure significantly improved it is now 177/66 as I walked into the room. I did not give her any medications for her high blood pressure. CBC and CMP interpreted by me were normal. I do not believe the patient needs troponins she does not have any chest pain or shortness of breath or any cardiac symptoms. Patient does not have a headache, I do not believe she needs CT of the head she has no headache or vision changes. She does not meet criteria for admission. She appears well. I will discharge her in stable condition. In talking to her she did say she was eating a lot of popcorn recently and ate salted and buttered. This could also affect her blood pressure and I warned her against this and told her to eat plain popcorn instead. Otherwise she can follow-up with her PCP. Lab Data Labs: Laboratory Results - last 24 hr 01/28/23 01/28/23 13:40 13:40 WBC 6.6 RBC 3.83 L Hgb 11.1 L Hct 33.6 L MCV 87.7 MCH 29.0 MCHC 33.0 D RDW Std Deviation 47.3 H RDW Coeff of Vijay 14.8 H Plt Count 285 MPV 9.3 Immature Gran % (Auto) 0.200 Neut % (Auto) 56.6 Lymph % (Auto) 34.2 [place] % (Auto) 5.6 Eos % (Auto) 2.6 Baso % (Auto) 0.8 Absolute Neuts (auto) 3.8 Absolute Lymphs (auto) 2.27 Nucleated RBC % 0 Sodium 136 Potassium 3.8 Chloride 102 Carbon Dioxide 27.0 Anion Gap 7 BUN 9 Creatinine 0.78 Estim Creat Clear Calc 37.74 Est GFR (MDRD) Af Amer 91 Est GFR (MDRD) Non-Af 75 BUN/Creatinine Ratio 11.5 Glucose 137 H Calcium 11.4 H Total Bilirubin 0.30 AST 18 ALT 20 Alkaline Phosphatase 140 H Total Protein 7.4 Albumin 2.9 L Globulin 4.5 H Albumin/Globulin Ratio 0.6 L EKG Initial EKG: Comments: Sinus rhythm with a rate of 86. Normal MO and QTc intervals. No ischemic changes. Interpreted by emergency doctor Discharge Plan Triage Chief Complaint: Hypertension ED Provider: Joseph Lockwood Dx/Rx/DC Orders Clinical Impression: Hypertension, Hx of hyperlipidemia Instructions: Blood Pressure Check Steps Prescriptions: No Action gabapentin 300 mg capsule 100 mg PO QHS Januvia 50 mg tablet 50 mg PO DAILY Jardiance 10 mg tablet 10 mg PO DAILY azelastine 137 mcg (0.1 %) aerosol,spray 1 spray intranasal BID Rx Instructions: administer into each nostril cod liver oil Capsule 1 cap PO DAILY Daliresp 250 mcg tablet 500 mcg PO DAILY psyllium husk [Daily Fiber] 0.4 gram capsule 0.4 g PO DAILY multivitamin Tablet 1 tab PO DAILY pravastatin 20 mg tablet 20 mg PO DAILY potassium chloride [Klor-Con M20] 20 mEq tablet,ER particles/crystals 40 meq PO BID budesonide-formoterol [Symbicort] 160-4.5 mcg/actuation HFA aerosol inhaler 2 puff inhalation BID cholecalciferol (vitamin D3) 1,250 mcg (50,000 unit) capsule 1,250 mcg PO QWEEK lisinopril 40 MG tablet 40 mg PO BID Label Comments: bp aspirin 81 MG tablet,chewable 81 mg PO DAILY@0800 Label Comments: heart health metoprolol tartrate 25 MG tablet 25 mg PO BID magnesium oxide 400 MG tablet 400 mg PO BID diltiazem HCl 180 MG tablet extended release 24 hr 180 mg PO DAILY albuterol sulfate 1 INHALER inhaler 2 puff INHALATION Q4H PRN PRN (Reason: Sob &/Or Wheezing) Trulicity 0.75 mg/0.5 mL Pen Injector 0.75 mg SUBCUT QWEEK cholecalciferol (vitamin D3) [Vitamin D3] 25 mcg (1,000 unit) Capsule 25 mcg PO DAILY polyethylene glycol 3350 17 GM packet 0.5 ea PO BID Rx Instructions: 1/4-1/2 capful before each meal pantoprazole 40 MG tablet 40 mg PO QHS insulin detemir U-100 100 UNITS/ML insulin pen 56 units SC BIDCM Label Comments: diabetic medication Rx Instructions: . insulin aspart U-100 100 UNIT/ML solution 22 unit SQ BIDCM vitamin S-nufbtvhgoutt-ppfvhzy 500 MG tablet,chewable 250 mg PO DAILY Primary Care Provider: Ramone Smiley Referrals: Ramone Smiley MD [Primary Care Provider] - 3-5 Days Disposition Disposition: Home, Self Care
[2023-01-28 15:45] LABS: Absolute Lymphocyte Count 2.27 X10^3/uL (0.83-4.51); Absolute Neutrophil Count 3.8 X10^3/uL (2.0-7.7); Basophil# 0.05 X10^3/uL; Basophil% 0.8 % (0-1); Eosinophil# 0.17 X10^3/uL; Eosinophils% 2.6 % (0-5); Hematocrit 33.6 % (37-47); Hemoglobin 11.1 g/dL (12.0-15.0); Lymphocyte # 2.27 X10^3/ul (0.83-4.51); Lymphocyte % 34.2 % (19-41); Mean Corpuscular Volume 87.7 fL (81-99); Mean Platelet Vol. 9.3 fl (6.2-12.0); Monocyte# 0.37 X10^3/uL; Monocyte% 5.6 % (0-10); NRBC Flagged by Analyzer 0 % (0-5); Neutrophil # 3.77 X10^3/uL (2.7-7.7); Neutrophil % 56.6 % (47-70); Platelet Count 285 K/mm3 (150-450); RBC Distribution Width CV 14.8 % (11.6-14.6); RBC Distribution Width SD 47.3 fl (35.1-43.9); Red Blood Count 3.83 M/mm3 (4.2-5.4); White Blood Count 6.6 K/mm3 (4.4-11.0)
[2023-01-28 16:00] LABS: ALB/GLOB Ratio 0.6 RATIO (0.9-2.4); AST(SGOT) 18 U/L (15-37); Alanine Aminotransfer ALT/SGPT 20 U/L (13-56); Albumin, Serum 2.9 g/dL (3.2-5.0); Alkaline Phosphatase 140 U/L (45-117); Anion Gap 7 (5-15); BUN 9 mg/dL (7-18); BUN/Creat Ratio 11.5 RATIO (10-20); Calcium,Total 11.4 mg/dL (8.5-10.1); Chloride 102 mmol/L (98-107); Creatinine, Serum 0.78 mg/dL (0.55-1.02); EST Glomerular Filtration Rate 75 mL/min (>60); Est Glom Filt Rate - Afr Amer 91 mL/min (>60); Estimated Creatinine Clearance 37.74 ml/min; Globulin 4.5 g/dL (2.2-4.2); Glucose 137 mg/dL (74-106); Potassium 3.8 mmol/L (3.5-5.1); Protein, Total 7.4 g/dL (6.4-8.2); Sodium Level 136 mmol/L (136-145)
[2023-01-28 16:36] VITALS: BP 170/63; PULSE 75
[2023-01-29 11:21] LABS: Free T3 2.9 pg/mL (2.18-3.98); T4 Free Direct 1.11 ng/dL (0.76-1.46); Thyroid Stim Hormone (TSH) 0.02 uIU/mL (0.358-3.74)
== END 2023-01-28 16:52 | disposition home or self-care (01) ==
LOC: ED 15:43
PROVIDERS: Emergency Provider Emergency Medicine; PCP Family Medicine; Visit Provider Emergency Medicine
DX: I12.9 Hypertensive chronic kidney disease with stage 1 through stage 4 chronic kidney disease, or unspecified chronic kidney disease (principal); J44.9 Chronic obstructive pulmonary disease, unspecified; E11.22 Type 2 diabetes mellitus with diabetic chronic kidney disease; E11.49 Type 2 diabetes mellitus with other diabetic neurological complication; E11.40 Type 2 diabetes mellitus with diabetic neuropathy, unspecified; N18.30 Chronic kidney disease, stage 3 unspecified; Z87.891 Personal history of nicotine dependence; G89.29 Other chronic pain; M54.9 Dorsalgia, unspecified; E78.00 Pure hypercholesterolemia, unspecified; E86.0 Dehydration; E55.9 Vitamin D deficiency, unspecified
CPT/HCPCS: 36415; 80053; 80061; 82306; 83036; 83970; 84439; 84443; 84481; 85025; 93005; 96360; 99282; J7040; A4216

== ENCOUNTER → 2023-01-28 | Outpatient (CLI) | payer MEDICARE, SELFPAY ==
[2023-01-28 15:33] LABS: Absolute Lymphocyte Count 3.27 X10^3/uL (0.83-4.51); Absolute Neutrophil Count 3.9 X10^3/uL (2.0-7.7); Basophil# 0.04 X10^3/uL; Basophil% 0.5 % (0-1); Eosinophil# 0.18 X10^3/uL; Eosinophils% 2.3 % (0-5); Hematocrit 37.2 % (37-47); Hemoglobin 11.5 g/dL (12.0-15.0); Lymphocyte # 3.27 X10^3/ul (0.83-4.51); Lymphocyte % 42.3 % (19-41); Mean Corp Hgb Conc 30.9 g/dL (32-36); Mean Corpuscular Volume 90.7 fL (81-99); Mean Platelet Vol. 9.8 fl (6.2-12.0); Monocyte# 0.37 X10^3/uL; Monocyte% 4.8 % (0-10); NRBC Flagged by Analyzer 0 % (0-5); Neutrophil # 3.86 X10^3/uL (2.7-7.7); Platelet Count 349 K/mm3 (150-450); RBC Distribution Width CV 14.9 % (11.6-14.6); RBC Distribution Width SD 49.7 fl (35.1-43.9); White Blood Count 7.7 K/mm3 (4.4-11.0)
[2023-01-28 16:14] LABS: Vitamin D,25 Hydroxy 66.1 ng/mL
[2023-01-28 16:20] LABS: Hemoglobin A1c 7.5 % (3.8-5.6)
[2023-01-28 16:34] LABS: ALB/GLOB Ratio 0.6 RATIO (0.9-2.4); AST(SGOT) 22 U/L (15-37); Alanine Aminotransfer ALT/SGPT 20 U/L (13-56); Alkaline Phosphatase 153 U/L (45-117); Anion Gap 10 (5-15); BUN 9 mg/dL (7-18); BUN/Creat Ratio 10.7 RATIO (10-20); Calcium,Total 11.5 mg/dL (8.5-10.1); Chloride 99 mmol/L (98-107); Cholesterol 145 mg/dL (200); Creatinine, Serum 0.84 mg/dL (0.55-1.02); EST Glomerular Filtration Rate 70 mL/min (>60); Est Glom Filt Rate - Afr Amer 84 mL/min (>60); Globulin 4.9 g/dL (2.2-4.2); Glucose 182 mg/dL (74-106); High Density Lipoprotein 46 mg/dL; Potassium 3.6 mmol/L (3.5-5.1); Protein, Total 7.9 g/dL (6.4-8.2); Sodium Level 134 mmol/L (136-145); Thyroid Stim Hormone (TSH) 0.02 uIU/mL (0.358-3.74); Triglycerides 119 mg/dL; Very Low Density Lipoprotein 24 mg/dL (5-40)
[2023-01-29 08:58] LABS: PTHIN 112.9 pg/mL (18.4-80.1)
== END | disposition home or self-care (01) ==
LOC: MTLAB 13:39
PROVIDERS: PCP Family Medicine; Referring Provider Family Medicine; Visit Provider Family Medicine
DX: E11.49 Type 2 diabetes mellitus with other diabetic neurological complication (principal); E34.9 Endocrine disorder, unspecified; E55.9 Vitamin D deficiency, unspecified
CPT/HCPCS: 36415; 80053; 80061; 82306; 83036; 83970; 84443; 85025

== ENCOUNTER → 2023-02-05 | Outpatient (CLI) | payer MEDICARE, SELFPAY ==
--- NOTE | 2023-02-05 13:17 | US_ITS ---
STUDY: THYROID ULTRASOUND REASON FOR EXAM: Female, 78 years old. Nodules - wants TIRADS TECHNIQUE: Ultrasound evaluation of the thyroid was performed with real-time and static richards-scale imaging. COMPARISON: Comparison is made with prior study dated July 31, 2021. FINDINGS: RIGHT LOBE: The right lobe of the thyroid gland is enlarged and measures 6.4 cm x 3.5 cm x 2.7 cm. There is a heterogeneous echotexture. Once again, multiple solid and cystic nodules are seen. The largest nodule measures 2.5 cm x 2 cm x 1.4 cm. This is in the mid pole of the right lobe. Stable examination. TR 5 LEFT LOBE: The left lobe of the thyroid gland is enlarged and measures 5.9 cm x 2.4 cm x 1.9 cm. There is a heterogeneous echotexture. Once again, multiple nodules are seen. The largest is a complex solid and cystic nodule in the upper pole of the left lobe measuring 2 cm x 2.1 signed by 1.4 cm. This is essentially unchanged. TR to ISTHMUS: The isthmus measures 6 mm. The regional lymph nodes are normal. US/Thyroid IMPRESSION: Stable examination. Electronically Signed: Robert Randall MD at 8:59 EDT ,
== END | disposition home or self-care (01) ==
LOC: US 13:15
PROVIDERS: PCP Family Medicine; Referring Provider Family Medicine; Visit Provider Family Medicine
DX: E04.9 Nontoxic goiter, unspecified (principal)
CPT/HCPCS: 76536

== ENCOUNTER → 2023-03-24 | Outpatient (CLI) | payer MEDICARE, SELFPAY ==
--- NOTE | 2023-03-24 15:21 | US_ITS ---
EXAM: US RETROPERITONEAL LIMITED, RENAL CLINICAL INDICATION: URINARY RETENTION TECHNIQUE: Limited grayscale and color Doppler sonographic evaluation of the kidneys and urinary bladder was performed. COMPARISON: Previous ultrasound of 02/27/2022. FINDINGS: RIGHT KIDNEY: Right kidney measures 9.7 x 6.1 x 3.8 cm in diameter. Normal renal cortical thickness and echogenicity. No hydronephrosis. No shadowing calculus. 1.2 cm simple cyst incidentally noted at the upper pole, and requires no follow-up. No perinephric collection is demonstrated. LEFT KIDNEY: Left kidney measures 11.4 x 4.7 x 4.2 cm in diameter. Normal renal cortical thickness and echogenicity. No hydronephrosis. No shadowing calculus. No focal lesion. No perinephric collection is demonstrated. URINARY BLADDER: Bladder wall measures 3.7 mm in thickness. Slight trabeculation of the urinary bladder wall, consistent with history of neurogenic bladder. No bladder calculi or cellular debris. Bilateral ureteral jets are present. Distended bladder volume measures 205 cc. Postvoiding urinary bladder volume measures 189 cc; patient reportedly self catheterizes to drain the urinary bladder. Uterine fundus indents the posterior wall of the bladder. US/Kidney and Bladder IMPRESSION: No hydronephrosis. Post voiding residual within the urinary bladder measures 189 cc. Electronically Signed: Tyler Hankins MD at 23:32 EDT ,
== END | disposition home or self-care (01) ==
PROVIDERS: PCP Family Medicine; Referring Provider Urology; Visit Provider Urology
DX: R33.9 Retention of urine, unspecified (principal)
CPT/HCPCS: 76770; 87077; 87086; 87088; 87186

== ENCOUNTER → 2023-05-15 | Outpatient (CLI) | payer MEDICARE, SELFPAY ==
--- NOTE | 2023-05-15 08:56 | RAD_ITS ---
HISTORY: L radial palmar wrist with swelling, tender, s/p fall/trauma? TECHNIQUE: XR Wrist Min 3 Views. COMPARISON: None. FINDINGS: BONES : Small linear lucency in the hamate on 1 view only. Mild osteopenia. JOINTS: No dislocation. Mild degenerative change. SOFT TISSUES: Moderate soft tissue swelling. Peripheral vascular disease noted. RAD/Wrist min 3 Views IMPRESSION: Moderate soft tissue swelling of the left wrist with a possible small nondisplaced fracture of the hamate. Electronically Signed: Shakira Solano MD at 8:31 EDT ,
== END | disposition home or self-care (01) ==
LOC: MTRAD 08:55
PROVIDERS: PCP Family Medicine; Referring Provider Family Medicine; Visit Provider Family Medicine
DX: M25.432 Effusion, left wrist (principal)
CPT/HCPCS: 73110

== ENCOUNTER → 2023-05-27 | Outpatient (CLI) | payer MEDICARE, SELFPAY ==
[2023-05-27 18:15] LABS: Vitamin D,25 Hydroxy 45.4 ng/mL
[2023-05-27 18:16] LABS: Albumin, Serum 2.9 g/dL (3.2-5.0); BUN 8 mg/dL (7-18); Calcium,Total 10.7 mg/dL (8.5-10.1); Chloride 102 mmol/L (98-107); EST Glomerular Filtration Rate 73 mL/min (>60); Est Glom Filt Rate - Afr Amer 89 mL/min (>60); Glucose 220 mg/dL (74-106); Phosphorus 2.7 mg/dL (2.5-4.9); Potassium 3.9 mmol/L (3.5-5.1); Sodium Level 137 mmol/L (136-145)
[2023-05-28 08:15] LABS: PTHIN 164.3 pg/mL (18.4-80.1)
== END | disposition home or self-care (01) ==
LOC: MTLAB 14:31
PROVIDERS: PCP Family Medicine; Referring Provider Internal Medicine Nephrology; Visit Provider Internal Medicine Nephrology
DX: N18.2 Chronic kidney disease, stage 2 (mild) (principal); Z79.4 Long term (current) use of insulin; E83.52 Hypercalcemia
CPT/HCPCS: 36415; 80069; 82306; 83970

== ENCOUNTER → 2023-06-01 | Outpatient (CLI) | payer MEDICARE, SELFPAY ==
[2023-06-01 15:20] LABS: Mucous, Urine 0 SEEN /hpf (<or=2+)
[2023-06-01 17:37] LABS: Color, Urine Yellow (Yellow); Glucose, Dipstick 1000 mg/dl (Normal); Ketone-Dipstick Negative (Negative); Leukocyte Esterase-Dipstick 100 /ul (Negative); Nitrite-Dipstick Negative (Negative); Occult Blood-Urine 25 /ul (Negative); Protein-Dipstick 15 mg/dl (Negative); Specific Gravity, Urine 1.015 (1.002-1.030); Urine Bilirubin Dipstick Negative (Negative); Urine Clarity Cloudy (Clear); Urine Urobilinogen Normal (Normal)
[2023-06-01 18:00] LABS: Microalbumin,Random Urine 98.3 mg/L (NO RANGE EST.); Microalbumin:Creatinine Ratio 173.1 mg/g CRE (<30 mg/g CRE)
[2023-06-01 18:08] LABS: Bacteria 3+ /hpf (None Seen); Red Blood Cells-Urine 0-5 SEEN /hpf (0-5); Squamous Epithelial Cells - UA 0-5 SEEN /hpf (5-10); White Blood Cells 5-10 SEEN /hpf (0-5)
[2023-06-01 18:09] LABS: Amorphous Sediment 1+ URATE
== END | disposition home or self-care (01) ==
PROVIDERS: PCP Family Medicine; Referring Provider Internal Medicine Nephrology; Visit Provider Internal Medicine Nephrology
DX: N18.2 Chronic kidney disease, stage 2 (mild) (principal); Z79.4 Long term (current) use of insulin; E83.52 Hypercalcemia
CPT/HCPCS: 81001; 82043; 82570

== ENCOUNTER 2023-07-18 22:42 | Emergency (ER) | payer MEDICARE, SELFPAY ==
[2023-07-18 22:44] VITALS: BP 126/59; PULSE 125; RESP 18; TEMP 36.4; O2SAT 96
[2023-07-18 22:47] VITALS: BP 126/59; PULSE 125; RESP 18; TEMP 36.4; O2SAT 96
--- NOTE | 2023-07-18 23:11 | EKG12_ITS ---
Test Reason : DYSRHYTHMIA Blood Pressure : / mmHG Vent. Rate : 116 BPM Atrial Rate : 116 BPM P-R Int : 140 ms QRS Dur : 078 ms QT Int : 330 ms P-R-T Axes : 069 044 064 degrees QTc Int : 458 ms Sinus tachycardia Otherwise normal ECG Confirmed by KELSEA LEARY, ANN ([id number]), editor trade journal ATTILA ESPINO ([id number]) on 07/22/2023 12:39:44 PM Referred By: Confirmed By:ANN ENAMORADO MD
--- NOTE | 2023-07-18 23:13 | EX.ED.DYSGE1 ---
HPI History of Present Illness Chief Complaint: Shortness of Breath Informant: patient Narrative Narrative: Presents with just a sense of not feeling well. She states about 10 days ago she had some nausea and vomiting. She was seen at urgent care and given Zofran. Those symptoms seem to have passed. Her appetite is still not the best but she is eating and drinking well. She is moving her bowels. When specifically asked she denies any black or bloody bowels now or in the past. She does state that the urine was more yellow than normal may be a little darker. But no odor. Of note, she has been self cathing herself for about 2 years. She is not sure why she can urinate without this. She had not been taking her medicines 10 days ago for couple days due to the vomiting but she is back on all of her medicines. She does states that she feels like her energy is lower than normal. She gets a little short of breath if she walks around but she denies any chest pain. She denies coughing at this time. She denies fevers. I note that she looks pale to me. I then find out that she was anemic. She used to be on iron infusions. But she stopped going because they were just a lot of effort to go. She states that they look for sources of bleeding and never could find it. She again denies black or bloody bowel movements. Dr. Mendez had told her there was some blood in the urine but she is never seen that. [facility] Medical History (Updated 07/19/23 @ 00:[address] Winston Gill MD) Anemia Anxiety Aortic stenosis Asthma Carpal tunnel syndrome of right wrist Cellulitis and abscess of finger, unspecified Chronic idiopathic constipation Chronic renal failure, stage 3 (moderate) Colon polyp COPD (chronic obstructive pulmonary disease) Depression Diabetes Diabetic retinopathy Foraminal stenosis of lumbar region Former smoker GERD (gastroesophageal reflux disease) Goiter, nontoxic, multinodular History of malignant neoplasm of breast Hx of venous thrombosis and embolism Hypercalcemia Hyperlipidemia Hypertension Hypokalemia Hyponatremia Hypophosphatemia Iron deficiency anemia Irregular heart beat Leg weakness, bilateral Lumbar spinal stenosis Microcytic anemia Multiple thyroid nodules Neurogenic bladder Paronychia of left index finger Peripheral artery disease Polypharmacy Pruritus Retinopathy Rhinitis Strain of right rotator cuff capsule Thyroid goiter Type 2 diabetes mellitus Urinary retention with incomplete bladder emptying Urine retention UTI (urinary tract infection) Vaginal cyst Vitamin D deficiency Home Medications lisinopril 40 mg tablet 40 mg PO BID BP 12/25/14 [History Last Taken 07/10/20 06:30] aspirin 81 mg chewable tablet 81 mg PO DAILY@0800 cardiac health 01/21/16 [History Last Taken 01/20/16] albuterol sulfate 90 mcg/actuation aerosol inhaler 2 puff inhalation Q4H PRN PRN Sob &/Or Wheezing 08/16/18 [History Last Taken 07/10/20 06:30] diltiazem HCl 180 mg tablet,extended release 24 hr 180 mg PO DAILY BLOOD PRESSURE 08/16/18 [History Last Taken 07/10/20 06:30] magnesium oxide 400 mg (241.3 mg magnesium) tablet 400 mg PO BID SUPPLEMENT 08/16/18 [History Last Taken Unknown] metoprolol tartrate 25 mg tablet 25 mg PO BID BLOOD PRESSURE 08/16/18 [History Last Taken 07/10/20 06:30] insulin aspart U-100 100 unit/mL subcutaneous solution 22 unit SQ BIDCM diabetes 12/02/19 [History Last Taken Unknown] insulin detemir U-100 100 unit/mL (3 mL) subcutaneous pen 56 units subcut BIDCM DIABETES 12/02/19 [History Last Taken Unknown] pantoprazole 40 mg tablet,delayed release 40 mg PO QHS reflux 12/02/19 [History Last Taken 07/10/20 06:30] polyethylene glycol 3350 17 gram oral powder packet 0.5 ea PO BID constipation 12/02/19 [History Last Taken Unknown] gabapentin 300 mg capsule 100 mg PO QHS 01/24/20 [History Last Taken Unknown] empagliflozin 10 mg tablet (Jardiance) 10 mg PO DAILY 10/18/20 [History Last Taken Unknown] sitagliptin phosphate 50 mg tablet (Januvia) 50 mg PO DAILY 10/18/20 [History Last Taken Unknown] budesonide-formoterol HFA 160 mcg-4.5 mcg/actuation aerosol inhaler (Symbicort) 2 puff inhalation BID 12/06/21 [History Last Taken Unknown] multivitamin 1 tab PO DAILY 12/06/21 [History Last Taken Unknown] potassium chloride 20 mEq tablet,extended release(part/cryst) (Klor-Con M) 40 meq PO BID 12/06/21 [History Last Taken Unknown] pravastatin 20 mg tablet 20 mg PO DAILY 12/06/21 [History Last Taken Unknown] roflumilast 250 mcg tablet (Daliresp) 500 mcg PO DAILY 12/06/21 [History Last Taken Unknown] ondansetron HCl 8 mg tablet 8 mg PO Q8H PRN nausea and vomiting #14 tabs 07/15/23 [Rx Last Taken Unknown] nitrofurantoin monohydrate/macrocrystals 100 mg capsule (Macrobid) 100 mg PO Q12H 7 days #14 caps 07/19/23 [Rx Last Taken Unknown] Allergy/AdvReac Type Severity Reaction Status Date / Time adhesive tape [tape] Allergy NEEDS Verified 07/18/23 22:44 FOLLOW-UP amoxicillin Allergy YEAST Verified 07/18/23 22:44 INFECTION cephalexin monohydrate Allergy Rash Verified 07/18/23 22:44 [From Keflex] clopidogrel bisulfate Allergy Other Verified 07/18/23 22:44 [From Plavix] Family History Daughter Breast cancer Father Hypertension Sister Cancer Kidney disease Mother Pancreatic cancer Surgical History H/O dilation and curettage (~07/10/20) History of Achilles tendon repair History of lumpectomy of left breast Retinopathy S/P fine needle aspiration (~10/2020) Social History household members: spouse Smoking Status: Former smoker alcohol intake: never substance use type: does not use caffeine: Yes what type of physical activity do you participate in: none seatbelt use: always do you feel safe at home: Yes additional social history: [employer]- retired ROS ROS ED ROS Narrative A complete review of systems was performed and is negative except as documented in the history of present illness. Some specific details below. Constitutional: No recent fevers or chills. Her nausea resolved over a week ago. She does have a sense of malaise but has had a negative COVID test as an outpatient already. EYE: No discharge, visual complaints, or pain. ENT: No difficulty swallowing. No swelling. No pain. No reflux symptoms. CV: Denies chest pain or palpitations even though her heart rate is somewhat quick. Respiratory: Coughing. She does get some mild dyspnea with activity but not sitting still. GI: No abdominal pain. No nausea vomiting diarrhea. No blood in stool. 1. No darkening of the stool overall : Darkening and more yellow urine recently. She does admit to a little bit of suprapubic discomfort on occasion but not now. Musculoskeletal: No recent trauma. No pains. No swelling. Skin: No rash. Nondiaphoretic. Neuro: No cool weakness or numbness. Is feeling generally weak though. Endocrine: No polyuria or polydipsia. EXAM Physical Exam Narrative Exam Narrative: CONSTITUTIONAL: Patient is nontoxic in appearance. The patient looks comfortable. Work of breathing looks normal. Patient does overall look pale. HEENT: No notable trauma. Mucous membranes moist. No sinus tenderness. No indication of pain with swallowing. EYES: No conjunctival injection. Have mildly pale conjunctive a. NECK:No JVD. No stridor. CARDIOVASCULAR: Cardiac rate. Regular rhythm. No notable murmur. No JVD. RESPIRATORY: No respiratory distress. Breathing is unlabored. No wheezes. No rhonchi. No rales. No pain with a deep breath. No chest wall tenderness. Durations are normal at 96% on room air showing no hypoxia. GASTROINTESTINAL: Not distended. Bowel sounds are normal. No tenderness. No guarding. No rebound. No palpable mass. No bruit is heard. GENITOURINARY: No tenderness over the bladder. No CVA tenderness. MUSCULOSKELETAL: Atraumatic. No peripheral edema. No cord. No tenderness along the deep venous system. No asymmetry. No distended veins. NEUROLOGICAL: Patient is alert and appropriate. No focal deficit noted. SKIN: No noted rashes. No diaphoresis. Palms do look a bit pale. PSYCHIATRIC: Patient is calm. Mood is appropriate. Const Vital Signs: 07/18/23 22:44 07/18/23 22:47 07/18/23 23:37 Temperature 97.6 F L 97.6 F L Temperature Source Temporal Temporal Pulse Rate 125 H 125 H Respiratory Rate 18 18 Respiratory Effort Normal Non-Labored Respiratory Depth Normal Respiratory Pattern Normal Blood Pressure 126/59 H 126/59 H Blood Pressure Mean 81 81 Pulse Ox 96 96 Oxygen Delivery Method Room Air Room Air Room Air MDM MDM MDM Narrative Medical decision making narrative: Independent interpretation of the patient's single view but to admit chest x-ray shows no acute process. Final reading is similar. Patient CBC shows mild anemia at 10.8 but this is not markedly different than her last. Platelets are normal. White count is normal. Patient's electrolytes do show some mildly low sodium. She has had this before. But at this level I do not think we need to acutely treat this. Glucose is just minimally up at 139 showing overall good control. Calcium is slightly high but she has been much higher in the past. I do not think this is the acute cause of any of her generalized symptoms. She does have slightly low albumin but this is also not new. Liver function tests are overall normal but albumin is a bit low. Urine is cloudy with high leukocyte Estrace grade white cells and 3+ bacteria. Although she does that arise herself, this is an abnormal urine. Last time she had a urinalysis that look like this was in February 2022. At that time her culture did show positive for pansensitive E. coli. With her generalized weakness occasional pressure over the bladder and change in color of the urine with that urinalysis I will treat this as an acute UTI pending cultures. Due to her allergy profile we will try Macrobid. I will give her a dose here. Lab Data Labs: Laboratory Results - last 24 hr 07/18/23 07/18/23 23:23 23:50 WBC 7.0 RBC 3.85 L Hgb 10.8 L Hct 33.5 L MCV 87.0 MCH 28.1 MCHC 32.2 RDW Std Deviation 52.4 H RDW Coeff of Vijay 16.4 H Plt Count 370 MPV 10.0 Immature Gran % (Auto) 1.300 H Neut % (Auto) 76.5 H Lymph % (Auto) 13.1 L Clay % (Auto) 8.0 Eos % (Auto) 0.7 Baso % (Auto) 0.4 Absolute Neuts (auto) 5.4 Absolute Lymphs (auto) 0.92 Nucleated RBC % 0 Sodium 131 L Potassium 3.7 Chloride 95 L Carbon Dioxide 27.0 Anion Gap 9 BUN 13 Creatinine 0.83 Estim Creat Clear Calc 45.46 Est GFR (MDRD) Af Amer 85 Est GFR (MDRD) Non-Af 70 BUN/Creatinine Ratio 15.6 Glucose 139 H Calcium 10.3 H Total Bilirubin 0.40 AST 26 ALT 13 Alkaline Phosphatase 93 Total Protein 7.4 Albumin 2.6 L Globulin 4.8 H Albumin/Globulin Ratio 0.5 L Urine Color Yellow Urine Clarity Cloudy Urine pH 5.0 Ur Specific [place] 1.020 Urine Protein 100 H Urine Glucose (UA) 1000 H Urine Ketones 50 H Urine Occult Blood 50 H Urine Nitrite Negative Urine Bilirubin Negative Urine Urobilinogen 1 H Ur Leukocyte Esterase 500 H Urine RBC 0-5 SEEN Urine WBC >100 SEEN Ur Squamous Epith Cells 5-10 SEEN Urine Bacteria 3+ WBC Casts 0-5 SEEN Urine Mucus 0 SEEN Radiography Diagnostic Testing: Clinical Impression(s) from Imaging Studies Chest X-Ray 07/18/23 23:38 IMPRESSION: No evidence of acute cardiopulmonary disease. Electronically Signed: Abdelrahman Lopez DO at 23:57 EST , EKG Initial EKG: Comments: Been interpretation the patient's EKG shows sinus rhythm with tachycardic rate at 116. No ventricular ectopy. No acute ST elevation or depression. FL interval, QRS duration and QTc are all within normal limits. The complexes are similar shape to 01/28/2023 but the rate is increased as the rate then was 86. Discharge Plan Triage Chief Complaint: Shortness of Breath ED Provider: Winston Gill Dx/Rx/DC Orders Clinical Impression: Generalized weakness, History of urinary self-catheterization, Acute UTI Instructions: Urinary Tract Infections in Women Prescriptions: New nitrofurantoin monohyd/m-cryst [Macrobid] 100 mg capsule 100 mg PO Q12H 7 Days Qty: 14 0RF Rx Instructions: must administer with a meal/food No Action gabapentin 300 mg capsule 100 mg PO QHS Januvia 50 mg tablet 50 mg PO DAILY Jardiance 10 mg tablet 10 mg PO DAILY Daliresp 250 mcg tablet 500 mcg PO DAILY multivitamin Tablet 1 tab PO DAILY pravastatin 20 mg tablet 20 mg PO DAILY potassium chloride [Klor-Con M20] 20 mEq tablet,ER particles/crystals 40 meq PO BID budesonide-formoterol [Symbicort] 160-4.5 mcg/actuation HFA aerosol inhaler 2 puff inhalation BID ondansetron HCl 8 mg tablet 8 mg PO Q8H PRN (Reason: nausea and vomiting) Qty: 14 0RF lisinopril 40 MG tablet 40 mg PO BID Patient Comments: bp aspirin 81 MG tablet,chewable 81 mg PO DAILY@0800 Patient Comments: heart health metoprolol tartrate 25 MG tablet 25 mg PO BID magnesium oxide 400 MG tablet 400 mg PO BID diltiazem HCl 180 MG tablet extended release 24 hr 180 mg PO DAILY albuterol sulfate 1 INHALER inhaler 2 puff INHALATION Q4H PRN PRN (Reason: Sob &/Or Wheezing) polyethylene glycol 3350 17 GM packet 0.5 ea PO BID Rx Instructions: /4-1/2 capful before each meal pantoprazole 40 MG tablet 40 mg PO QHS insulin detemir U-100 100 UNITS/ML insulin pen 56 units SC BIDCM Patient Comments: diabetic medication Rx Instructions: . insulin aspart U-100 100 UNIT/ML solution 22 unit SQ BIDCM Primary Care Provider: Ramone Smiley Referrals: Ramone Smiley MD [Primary Care Provider] - 3-5 Days if not improving Disposition Disposition: Home, Self Care
[2023-07-18 23:28] VITALS: BMI 25.7
--- NOTE | 2023-07-18 23:38 | RAD_ITS ---
INDICATION: cough EXAMINATION/TECHNIQUE: X-RAY - XR Chest 1 View COMPARISON: 02/08/2021. FINDINGS: LINES/DEVICES: None. LUNGS: No consolidation or evidence of an effusion. No evidence of edema or a pneumothorax. MEDIASTINUM AND CARDIOVASCULAR STRUCTURES: Cardiac silhouette is normal in size and contour. Mediastinum is unremarkable. BONES AND SOFT TISSUES: No acute abnormality. RAD/Chest 1 View (Portable) IMPRESSION: No evidence of acute cardiopulmonary disease. Electronically Signed: Abdelrahman Lopez DO at 23:57 EST ,
[2023-07-18 23:52] LABS: Mucous, Urine 0 SEEN /hpf (<or=2+)
[2023-07-18 23:56] LABS: Color, Urine Yellow (Yellow); Glucose, Dipstick 1000 mg/dl (Normal); Ketone-Dipstick 50 mg/dl (Negative); Leukocyte Esterase-Dipstick 500 /ul (Negative); Nitrite-Dipstick Negative (Negative); Occult Blood-Urine 50 /ul (Negative); Protein-Dipstick 100 mg/dl (Negative); Urine Bilirubin Dipstick Negative (Negative); Urine Clarity Cloudy (Clear); Urine Urobilinogen 1 mg/dl (Normal)
[2023-07-19 00:02] LABS: Bacteria 3+ /hpf (None Seen); Red Blood Cells-Urine 0-5 SEEN /hpf (0-5); Squamous Epithelial Cells - UA 5-10 SEEN /hpf (5-10); White Blood Cells >100 SEEN /hpf (0-5); White Cell Cast 0-5 SEEN /lpf (None Seen)
[2023-07-19 00:08] LABS: Absolute Lymphocyte Count 0.92 X10^3/uL (0.83-4.51); Absolute Neutrophil Count 5.4 X10^3/uL (2.0-7.7); Basophil# 0.03 X10^3/uL; Basophil% 0.4 % (0-1); Eosinophil# 0.05 X10^3/uL; Eosinophils% 0.7 % (0-5); Hematocrit 33.5 % (37-47); Hemoglobin 10.8 g/dL (12.0-15.0); Lymphocyte # 0.92 X10^3/ul (0.83-4.51); Lymphocyte % 13.1 % (19-41); Mean Corp Hgb Conc 32.2 g/dL (32-36); Mean Corpuscular Hgb 28.1 pg (27.0-32.0); Monocyte# 0.56 X10^3/uL; NRBC Flagged by Analyzer 0 % (0-5); Neutrophil # 5.36 X10^3/uL (2.7-7.7); Neutrophil % 76.5 % (47-70); Platelet Count 370 K/mm3 (150-450); RBC Distribution Width CV 16.4 % (11.6-14.6); RBC Distribution Width SD 52.4 fl (35.1-43.9); Red Blood Count 3.85 M/mm3 (4.2-5.4)
[2023-07-19 00:09] LABS: ALB/GLOB Ratio 0.5 RATIO (0.9-2.4); AST(SGOT) 26 U/L (15-37); Alanine Aminotransfer ALT/SGPT 13 U/L (13-56); Albumin, Serum 2.6 g/dL (3.2-5.0); Alkaline Phosphatase 93 U/L (45-117); Anion Gap 9 (5-15); BUN 13 mg/dL (7-18); BUN/Creat Ratio 15.6 RATIO (10-20); Calcium,Total 10.3 mg/dL (8.5-10.1); Chloride 95 mmol/L (98-107); Creatinine, Serum 0.83 mg/dL (0.55-1.02); EST Glomerular Filtration Rate 70 mL/min (>60); Est Glom Filt Rate - Afr Amer 85 mL/min (>60); Estimated Creatinine Clearance 45.46 ml/min; Globulin 4.8 g/dL (2.2-4.2); Glucose 139 mg/dL (74-106); Potassium 3.7 mmol/L (3.5-5.1); Protein, Total 7.4 g/dL (6.4-8.2); Sodium Level 131 mmol/L (136-145)
[2023-07-19] MEDS: Nitrofurantoin Macrocrystals 100 MG Capsule PO (00:58)
[2023-07-19 01:01] VITALS: BP 145/61; PULSE 101; RESP 20
== END 2023-07-19 01:31 | disposition home or self-care (01) ==
PROVIDERS: Emergency Provider Emergency Medicine; PCP Family Medicine; Visit Provider Emergency Medicine
DX: N39.0 Urinary tract infection, site not specified (principal); J44.9 Chronic obstructive pulmonary disease, unspecified; E11.22 Type 2 diabetes mellitus with diabetic chronic kidney disease; N18.30 Chronic kidney disease, stage 3 unspecified; I12.9 Hypertensive chronic kidney disease with stage 1 through stage 4 chronic kidney disease, or unspecified chronic kidney disease; R53.1 Weakness; E78.5 Hyperlipidemia, unspecified; Z87.891 Personal history of nicotine dependence; D50.9 Iron deficiency anemia, unspecified
CPT/HCPCS: 71045; 80053; 81001; 85025; 86850; 86900; 86901; 87077; 87086; 87088; 87186; 93005; 99283; A4216

== ENCOUNTER 2023-08-07 20:21 | Emergency (ER) | payer MEDICARE, SELFPAY ==
[2023-08-07 20:23] VITALS: BP 115/51; PULSE 87; RESP 18; TEMP 36.4; O2SAT 98
--- NOTE | 2023-08-07 20:30 | RAD_ITS ---
EXAM: XR RIGHT HIP WITH PELVIS WHEN PERFORMED, 2 OR 3 VIEWS CLINICAL INDICATION: FALL TECHNIQUE: Two or three views of the right hip with pelvis when performed. COMPARISON: No relevant prior studies available. FINDINGS: BONES/JOINTS: Unremarkable. No displaced fracture. No destructive or sclerotic lesions. Note that overlapping bowel shadows may however obscure fine detail. Sacroiliac joint is unremarkable. No widening of the pubic symphysis. The articular structures are unremarkable. SOFT TISSUES: Unremarkable. No soft tissue swelling or gas. TUBES, LINES AND DEVICES: There is a battery pack over the right iliac crest with a lead extending over the right sacrum. RAD/HIP, UNI W/ Pelvis 2-3 Views IMPRESSION: No acute findings in the pelvis or right hip. Electronically Signed: Alfredo Cartwright MD at 20:47 EST ,
--- NOTE | 2023-08-07 22:21 | ED.VIS.FALL ---
HPI HPI - Fall History of Present Illness Chief Complaint: Fall Narrative Narrative: 78-year-old female multiple medical problems, usually ambulates with a cane presents with right hip pain status post fall this evening. She states she was walking out of the kitchen with a glass of ice in her hand and her cane and the other. There were boxes behind the recliner that her foot struck. She fell onto her right hip. She denies hitting her head or loss of consciousness but has mild pain of her right hip that is worse with movement. She presents via EMS with the right hip pain. She denies other injuries. [facility] Medical History Anemia Anxiety Aortic stenosis Asthma Carpal tunnel syndrome of right wrist Cellulitis and abscess of finger, unspecified Chronic idiopathic constipation Chronic renal failure, stage 3 (moderate) Colon polyp COPD (chronic obstructive pulmonary disease) Depression Diabetes Diabetic retinopathy Foraminal stenosis of lumbar region Former smoker GERD (gastroesophageal reflux disease) Goiter, nontoxic, multinodular History of malignant neoplasm of breast Hx of venous thrombosis and embolism Hypercalcemia Hyperlipidemia Hypertension Hypokalemia Hyponatremia Hypophosphatemia Iron deficiency anemia Irregular heart beat Leg weakness, bilateral Lumbar spinal stenosis Microcytic anemia Multiple thyroid nodules Neurogenic bladder Paronychia of left index finger Peripheral artery disease Polypharmacy Pruritus Retinopathy Rhinitis Strain of right rotator cuff capsule Thyroid goiter Type 2 diabetes mellitus Urinary retention with incomplete bladder emptying Urine retention UTI (urinary tract infection) Vaginal cyst Vitamin D deficiency Home Medications lisinopril 40 mg tablet 40 mg PO BID BP 12/25/14 [History Last Taken 07/10/20 06:30] aspirin 81 mg chewable tablet 81 mg PO DAILY@0800 cardiac health 01/21/16 [History Last Taken 01/20/16] albuterol sulfate 90 mcg/actuation aerosol inhaler 2 puff inhalation Q4H PRN PRN Sob &/Or Wheezing 08/16/18 [History Last Taken 07/10/20 06:30] diltiazem HCl 180 mg tablet,extended release 24 hr 180 mg PO DAILY BLOOD PRESSURE 08/16/18 [History Last Taken 07/10/20 06:30] magnesium oxide 400 mg (241.3 mg magnesium) tablet 400 mg PO BID SUPPLEMENT 08/16/18 [History Last Taken Unknown] metoprolol tartrate 25 mg tablet 25 mg PO BID BLOOD PRESSURE 08/16/18 [History Last Taken 07/10/20 06:30] insulin aspart U-100 100 unit/mL subcutaneous solution 22 unit SQ BIDCM diabetes 12/02/19 [History Last Taken Unknown] insulin detemir U-100 100 unit/mL (3 mL) subcutaneous pen 56 units subcut BIDCM DIABETES 12/02/19 [History Last Taken Unknown] pantoprazole 40 mg tablet,delayed release 40 mg PO QHS reflux 12/02/19 [History Last Taken 07/10/20 06:30] polyethylene glycol 3350 17 gram oral powder packet 0.5 ea PO BID constipation 12/02/19 [History Last Taken Unknown] gabapentin 300 mg capsule 100 mg PO QHS 01/24/20 [History Last Taken Unknown] empagliflozin 10 mg tablet (Jardiance) 10 mg PO DAILY 10/18/20 [History Last Taken Unknown] sitagliptin phosphate 50 mg tablet (Januvia) 50 mg PO DAILY 10/18/20 [History Last Taken Unknown] budesonide-formoterol HFA 160 mcg-4.5 mcg/actuation aerosol inhaler (Symbicort) 2 puff inhalation BID 12/06/21 [History Last Taken Unknown] multivitamin 1 tab PO DAILY 12/06/21 [History Last Taken Unknown] potassium chloride 20 mEq tablet,extended release(part/cryst) (Klor-Con M) 40 meq PO BID 12/06/21 [History Last Taken Unknown] pravastatin 20 mg tablet 20 mg PO DAILY 12/06/21 [History Last Taken Unknown] roflumilast 250 mcg tablet (Daliresp) 500 mcg PO DAILY 12/06/21 [History Last Taken Unknown] ascorbic acid (vitamin C) 1,000 mg tablet (C-1000) 1 g PO DAILY 07/30/23 [History Last Taken Unknown] cod liver oil 10 ml PO DAILY 07/30/23 [History Last Taken Unknown] Allergy/AdvReac Type Severity Reaction Status Date / Time adhesive tape [tape] Allergy NEEDS Verified 08/07/23 20:25 FOLLOW-UP amoxicillin Allergy YEAST Verified 08/07/23 20:25 INFECTION cephalexin monohydrate Allergy Rash Verified 08/07/23 20:25 [From Keflex] clopidogrel bisulfate Allergy Other Verified 08/07/23 20:25 [From Plavix] Family History Daughter Breast cancer Father Hypertension Sister Cancer Kidney disease Mother Pancreatic cancer Surgical History H/O dilation and curettage (~07/10/20) History of Achilles tendon repair History of lumpectomy of left breast Retinopathy S/P fine needle aspiration (~10/2020) Social History household members: spouse Smoking Status: Former smoker alcohol intake: never substance use type: does not use caffeine: Yes what type of physical activity do you participate in: none seatbelt use: always do you feel safe at home: Yes additional social history: [employer]- retired ROS ROS ED ROS Narrative Constitutional: No fever, no chills. HEENT: No sore throat. No neck pain. No loss of vision. No rhinorrhea. Cardiovascular: No chest pain. No palpitations. No pedal edema. Respiratory: No cough, no shortness of breath. Abdominal: No abdominal pain. No nausea. No vomiting. Genitourinary: No dysuria. No hematuria. Musculoskeletal: No myalgias. Positive right hip pain worse with movement and weightbearing. Neurologic: No headaches. No dizziness. No lightheadedness. Skin: No rash. No change in color. Psychiatric: No depression. No anxiety. EXAM Physical Exam Narrative Exam Narrative: Afebrile. Vital signs noted. HEENT: Normocephalic. Atraumatic. PERRL, EOMI. Neck soft and supple. No point tenderness or step off. Cardiovascular: Regular rate and rhythm. Respiratory: No tachypnea. Lungs clear to auscultation bilaterally. Gastrointestinal: Abdomen soft, nontender, with normoactive bowel sounds. No rebound or guarding. Neurological: Awake. Alert. Nonfocal, nonlateralizing. Skin: No rash. Normal color. No pallor. Musculoskeletal: No pedal edema. Full range of motion extremities. Pelvis stable. Mild tenderness to palpation diffuse right hip. No evidence of clinical dislocation. Positive flexion extension of right hip and right knee. Palpable dorsalis pedis pulse. Const Vital Signs: 08/07/23 20:23 08/07/23 21:47 Temperature 97.6 F L Temperature Source Temporal Pulse Rate 87 Respiratory Rate 18 Respiratory Effort Normal Non-Labored Respiratory Depth Normal Respiratory Pattern Normal Blood Pressure 115/51 L Blood Pressure Mean 72 Pulse Ox 98 Oxygen Delivery Method Room Air Room Air MDM MDM MDM Narrative Medical decision making narrative: In the differential diagnosis is hip contusion versus hip fracture/dislocation. There is no clinical evidence of this. Nursing protocol x-rays were obtained and interpreted by myself independently in 3 views of the right hip. There is no evidence of fracture on my independent interpretation. I reviewed the radiology report which confirms my independent interpretation. I discussed patient's living situation with her. She lives at home with her , but her son lives upstairs, and cares for them. I discussed the possibility of requiring observation for placement in rehab, but she declines. She was given Tylenol 650 mg orally and she will be ambulated. Patient was able to ambulate with her cane. At this point in time, I do not feel further imaging is indicated as she is able to bear weight, and use her cane. She will follow-up with her primary care provider and take [id number] analgesics as needed. Return instructions to the emergency department were reviewed. Disposition is discharged home in stable condition. History & Record Review Discussion w/independent historian: Patient Additional record(s) reviewed:: Prior ED visit Radiography Diagnostic Testing: Clinical Impression(s) from Imaging Studies Hip/Pelvis X-Ray 08/07/23 20:30 IMPRESSION: No acute findings in the pelvis or right hip. Electronically Signed: Alfredo Cartwright MD at 20:47 EST , Discharge Plan Triage Chief Complaint: Fall ED Provider: Billy Kothari Dx/Rx/DC Orders Clinical Impression: Fall, Contusion of hip, right Instructions: ED Mechanical Fall, ED Hip Contusion Prescriptions: No Action gabapentin 300 mg capsule 100 mg PO QHS Januvia 50 mg tablet 50 mg PO DAILY Jardiance 10 mg tablet 10 mg PO DAILY Daliresp 250 mcg tablet 500 mcg PO DAILY multivitamin Tablet 1 tab PO DAILY pravastatin 20 mg tablet 20 mg PO DAILY potassium chloride [Klor-Con M20] 20 mEq tablet,ER particles/crystals 40 meq PO BID budesonide-formoterol [Symbicort] 160-4.5 mcg/actuation HFA aerosol inhaler 2 puff inhalation BID lisinopril 40 MG tablet 40 mg PO BID Patient Comments: bp aspirin 81 MG tablet,chewable 81 mg PO DAILY@0800 Patient Comments: heart health metoprolol tartrate 25 MG tablet 25 mg PO BID magnesium oxide 400 MG tablet 400 mg PO BID diltiazem HCl 180 MG tablet extended release 24 hr 180 mg PO DAILY albuterol sulfate 1 INHALER inhaler 2 puff INHALATION Q4H PRN PRN (Reason: Sob &/Or Wheezing) cod liver oil Oil 10 ml PO DAILY ascorbic acid (vitamin C) [C-1000] 1,000 mg tablet 1 g PO DAILY polyethylene glycol 3350 17 GM packet 0.5 ea PO BID Rx Instructions: 1/4-1/2 capful before each meal pantoprazole 40 MG tablet 40 mg PO QHS insulin detemir U-100 100 UNITS/ML insulin pen 56 units SC BIDCM Patient Comments: diabetic medication Rx Instructions: . insulin aspart U-100 100 UNIT/ML solution 22 unit SQ BIDCM Primary Care Provider: Ramone Smiley Referrals: Ramone Smiley MD [Primary Care Provider] - 3-5 Days if not improving Activity Restrictions/Additional Instructions: Take Tylenol as directed for pain. You may apply ice to the affected area for approximately 10 minutes a few times a day. Follow-up with your primary care provider. Return with increased pain, new or worsening symptoms. Disposition Disposition: Home, Self Care
[2023-08-07] MEDS: Acetaminophen 325 MG Tablet 650 MG PO (22:27)
== END 2023-08-07 22:57 | disposition home or self-care (01) ==
PROVIDERS: Emergency Provider Emergency Medicine; PCP Family Medicine; Visit Provider Emergency Medicine
DX: S70.01XA Contusion of right hip, initial encounter (principal); J44.9 Chronic obstructive pulmonary disease, unspecified; E11.22 Type 2 diabetes mellitus with diabetic chronic kidney disease; N18.30 Chronic kidney disease, stage 3 unspecified; I12.9 Hypertensive chronic kidney disease with stage 1 through stage 4 chronic kidney disease, or unspecified chronic kidney disease; Z87.891 Personal history of nicotine dependence; E78.5 Hyperlipidemia, unspecified; W01.0XXA Fall on same level from slipping, tripping and stumbling without subsequent striking against object, initial encounter
CPT/HCPCS: 73502; 99284

== ENCOUNTER 2023-08-13 10:00 | Inpatient (IN) | payer MEDICARE, SELFPAY ==
[2023-08-13] VITALS (8 sets, daily range): BP systolic 123–154; BP diastolic 50–59; PULSE 102–116; RESP 16–24; TEMP 36.6–37.2; O2SAT 93–99; BMI 24.5; BMI 23.4
--- NOTE | 2023-08-13 10:37 | EKG12_ITS ---
Test Reason : DYSRHYTHMIA Blood Pressure : / mmHG Vent. Rate : 107 BPM Atrial Rate : 107 BPM P-R Int : 146 ms QRS Dur : 084 ms QT Int : 330 ms P-R-T Axes : 061 029 058 degrees QTc Int : 440 ms Sinus tachycardia Otherwise normal ECG Confirmed by DEBORAH LEARY, KHRIS ([id number]), order editor ATTILA ESPINO ([id number]) on 08/17/2023 1:59:59 P M Referred By: ALANA Confirmed By:LIZZ CABRERA MD
--- NOTE | 2023-08-13 10:38 | EDS_ITS ---
HPI History of Present Illness Chief Complaint: Weakness Detail of Chief Complaint: Generalized weakness Informant: patient Narrative Narrative: Patient presents to the emergency department via EMS from home. Patient complaining of generalized weakness that she has had for weeks now. Patient falls at times and needs help getting back up. Today she had an appointment with her primary care physician but could not get up off the couch so her son called EMS. She lives with her son and her in a duplex. Patient has had subjective fever off and on. She denies cough out of the ordinary. She had vomiting 2 weeks ago but that is now resolved. She denies any diarrhea. She denies abdominal pain. She denies chest pain. She self caths. [facility] Medical History Anemia Anxiety Aortic stenosis Asthma Carpal tunnel syndrome of right wrist Cellulitis and abscess of finger, unspecified Chronic idiopathic constipation Chronic renal failure, stage 3 (moderate) Colon polyp COPD (chronic obstructive pulmonary disease) Depression Diabetes Diabetic retinopathy Foraminal stenosis of lumbar region Former smoker GERD (gastroesophageal reflux disease) Goiter, nontoxic, multinodular History of malignant neoplasm of breast Hx of venous thrombosis and embolism Hypercalcemia Hyperlipidemia Hypertension Hypokalemia Hyponatremia Hypophosphatemia Iron deficiency anemia Irregular heart beat Leg weakness, bilateral Lumbar spinal stenosis Microcytic anemia Multiple thyroid nodules Neurogenic bladder Paronychia of left index finger Peripheral artery disease Polypharmacy Pruritus Retinopathy Rhinitis Strain of right rotator cuff capsule Thyroid goiter Type 2 diabetes mellitus Urinary retention with incomplete bladder emptying Urine retention UTI (urinary tract infection) Vaginal cyst Vitamin D deficiency Home Medications lisinopril 40 mg tablet 40 mg PO BID BP 12/25/14 [History Last Taken 07/10/20 06:30] aspirin 81 mg chewable tablet 81 mg PO DAILY@0800 cardiac health 01/21/16 [History Last Taken 01/20/16] albuterol sulfate 90 mcg/actuation aerosol inhaler 2 puff inhalation Q4H PRN PRN Sob &/Or Wheezing 08/16/18 [History Last Taken 07/10/20 06:30] diltiazem HCl 180 mg tablet,extended release 24 hr 180 mg PO DAILY BLOOD PRESSURE 08/16/18 [History Last Taken 07/10/20 06:30] magnesium oxide 400 mg (241.3 mg magnesium) tablet 400 mg PO BID SUPPLEMENT 08/16/18 [History Last Taken Unknown] metoprolol tartrate 25 mg tablet 25 mg PO BID BLOOD PRESSURE 08/16/18 [History Last Taken 07/10/20 06:30] insulin aspart U-100 100 unit/mL subcutaneous solution 22 unit SQ BIDCM diabetes 12/02/19 [History Last Taken Unknown] insulin detemir U-100 100 unit/mL (3 mL) subcutaneous pen 56 units subcut BIDCM DIABETES 12/02/19 [History Last Taken Unknown] pantoprazole 40 mg tablet,delayed release 40 mg PO QHS reflux 12/02/19 [History Last Taken 07/10/20 06:30] polyethylene glycol 3350 17 gram oral powder packet 0.5 ea PO BID constipation 12/02/19 [History Last Taken Unknown] gabapentin 300 mg capsule 100 mg PO QHS 01/24/20 [History Last Taken Unknown] empagliflozin 10 mg tablet (Jardiance) 10 mg PO DAILY 10/18/20 [History Last Taken Unknown] sitagliptin phosphate 50 mg tablet (Januvia) 50 mg PO DAILY 10/18/20 [History Last Taken Unknown] budesonide-formoterol HFA 160 mcg-4.5 mcg/actuation aerosol inhaler (Symbicort) 2 puff inhalation BID 12/06/21 [History Last Taken Unknown] multivitamin 1 tab PO DAILY 12/06/21 [History Last Taken Unknown] potassium chloride 20 mEq tablet,extended release(part/cryst) (Klor-Con M) 40 meq PO BID 12/06/21 [History Last Taken Unknown] pravastatin 20 mg tablet 20 mg PO DAILY 12/06/21 [History Last Taken Unknown] roflumilast 250 mcg tablet (Daliresp) 500 mcg PO DAILY 12/06/21 [History Last Taken Unknown] ascorbic acid (vitamin C) 1,000 mg tablet (C-1000) 1 g PO DAILY 07/30/23 [History Last Taken Unknown] cod liver oil 10 ml PO DAILY 07/30/23 [History Last Taken Unknown] Allergy/AdvReac Type Severity Reaction Status Date / Time adhesive tape [tape] Allergy NEEDS Verified 08/13/23 10:00 FOLLOW-UP amoxicillin Allergy YEAST Verified 08/13/23 10:00 INFECTION cephalexin monohydrate Allergy Rash Verified 08/13/23 10:00 [From Keflex] clopidogrel bisulfate Allergy Other Verified 08/13/23 10:00 [From Plavix] Family History Daughter Breast cancer Father Hypertension Sister Cancer Kidney disease Mother Pancreatic cancer Surgical History H/O dilation and curettage (~07/10/20) History of Achilles tendon repair History of lumpectomy of left breast Retinopathy S/P fine needle aspiration (~10/2020) Social History household members: spouse Smoking Status: Former smoker alcohol intake: never substance use type: does not use caffeine: Yes what type of physical activity do you participate in: none seatbelt use: always do you feel safe at home: Yes additional social history: [employer]- retired ROS ROS ED Review of Systems ROS Unobtainable: other Constitutional Constitutional ED: Reports lethargy; Denies chills, fever(s), sweats or weight loss Eyes Eyes: Denies blurry vision, change in vision or diplopia ENT ENT ED: Denies rhinorrhea or sore throat Cardiovascular Cardiovascular: Denies chest pain, orthopnea or racing heartbeat Respiratory/Chest Respiratory/Chest: Reports cough; Denies dyspnea, dyspnea on exertion, orthopnea or sputum Gastrointestinal Gastrointestinal: Denies abdominal pain, diarrhea, nausea or vomiting Genitourinary Genitourinary ED: Denies dysuria, hematuria or urinary frequency Musculoskeletal Musculoskeletal: Denies arthralgias, back pain, myalgias or neck pain Integumentary Denies abscess, Abrasions or rash Neurologic Neurologic: Reports weakness; Denies headache(s) Psychiatric Psychiatric: Denies anxiety, depression or suicidal thoughts Endocrine Endocrinology: Denies polydipsia, polyphagia or polyuria Hematologic/Lymphatic Hematologic/Lymphatic: Denies easy bleeding, easy bruising or lymphadenopathy Allergic/Immunologic Allergic/Immunologic ED: Denies mouth swelling, tongue swelling or urticaria EXAM Physical Exam Const Vital Signs: 08/13/23 10:03 08/13/23 10:12 Temperature 97.9 F Temperature Source Temporal Pulse Rate 116 H Respiratory Rate 18 Respiratory Effort Normal Non-Labored Respiratory Pattern Normal Blood Pressure 126/58 H Blood Pressure Mean 80 Pulse Ox 99 Oxygen Delivery Method Room Air Positive well nourished and well developed General Appearance ED: well developed and NAD HEENT Reports TM's clear and moist mucous membranes normocephalic and atraumatic; Negative for trauma or tenderness Tympanic Membrane ED: Yes TM's clear Eyes PERRL and EOMs intact bilaterally General Eye ED: Negative for pale conjunctiva or scleral icterus Neck no lymphadenopathy, supple and no JVD General: Negative for tenderness Chest Wall inspection of chest normal and palpation of chest normal Chest: Negative for tenderness Resp normal respiratory effort and clear to auscultation bilaterally Effort and Inspection: Negative for respiratory distress or pain with movement Auscultation: Negative for rhonchi, wheezes or diminished lung sounds Cardio regular rhythm, S1 normal heart sound, S2 normal heart sound and no murmurs Rate: tachycardic Peripheral Pulses: pulses 2+ throughout GI normal to inspection, nondistended, normoactive bowel sounds, soft to palpation, non-tender, non-distended and no masses Back/Spine no CVA tenderness and no thoracic nor lumbar tenderness Extremity normal to inspection General Extremety ED: Negative for edema General Extremity: Negative for edema Neuro oriented x3, CN's II-XII intact bilaterally, no sensory deficits noted and gait normal Sensorium / Orientation: awake, alert, oriented to person, oriented to place and oriented to time Motor Exam: strength 5/5 throughout and strength abnormal Psych mental status grossly normal Skin no rashes or lesions noted and no wounds MDM MDM MDM Narrative Medical decision making narrative: Patient presents to the emergency department with generalized weakness and frequent falls. IV line established. CBC with differential count of 14.7 with hemoglobin 10 and hematocrit 32.6. Platelet count 412. Chemistries unremarkable other than a sodium of 127. Patient's BUN 31 and creatinine 1.18. Lactate was 1.2. LFTs unremarkable. Urinalysis positive for 500 excite esterase and 10-25 whites +3 bacteria. Urine culture was sent. COVID and flu testing were negative. Patient started on ciprofloxacin IV as she has multiple drug allergies. Case discussed with hospitalist will evaluate patient for admission. Lab Data Attestation: I reviewed the patient's lab results. Labs: Laboratory Results - last 24 hr 08/13/23 08/13/23 08/13/23 10:15 11:10 12:40 WBC 14.7 H RBC 3.83 L Hgb 10.0 L Hct 32.6 L MCV 85.1 MCH 26.1 L MCHC 30.7 L RDW Std Deviation 53.7 H RDW Coeff of Vijay 17.2 H Plt Count 412 MPV 10.8 Immature Gran % (Auto) 1.400 H Neut % (Auto) 82.7 H Lymph % (Auto) 9.4 L Rolette % (Auto) 6.1 Eos % (Auto) 0.1 Baso % (Auto) 0.3 Absolute Neuts (auto) 12.1 H Absolute Lymphs (auto) 1.37 Nucleated RBC % 0 Sodium 127 L Potassium 3.8 Chloride 92 L Carbon Dioxide 23.0 Anion Gap 12 BUN 31 H Creatinine 1.18 H Estim Creat Clear Calc 31.98 Est GFR (MDRD) Af Amer 57 L Est GFR (MDRD) Non-Af 47 L BUN/Creatinine Ratio 26.3 H Glucose 212 H Lactic Acid 1.2 Calcium 10.5 H Total Bilirubin 0.60 AST 36 ALT 29 Alkaline Phosphatase 105 Troponin I High Sens 39 Total Protein 7.8 Albumin 2.2 L Globulin 5.6 H Albumin/Globulin Ratio 0.4 L Urine Color Yellow Urine Clarity Sl. Cloudy Urine pH 5.0 Ur Specific Gabriels 1.015 Urine Protein 30 H Urine Glucose (UA) 1000 H Urine Ketones 50 H Urine Occult Blood 50 H Urine Nitrite Negative Urine Bilirubin Negative Urine Urobilinogen Normal Ur Leukocyte Esterase 500 H Urine RBC 0-5 SEEN Urine WBC 10-25 SEEN Ur Squamous Epith Cells 0 SEEN Urine Bacteria 3+ Urine Mucus 0 SEEN Radiography Diagnostic Testing: Clinical Impression(s) from Imaging Studies Chest X-Ray 08/13/23 10:45 IMPRESSION: Hyperinflation. The lungs are clear. Electronically Signed: Robert Randall MD at 11:04 EST , 1 view chest x-ray obtained interpreted by myself as no evidence of infiltrate or pneumothorax or acute disease process. Radiology in agreement. EKG Initial EKG: Attestation: I personally reviewed and interpreted this EKG as follows: Comments: Sinus tachycardia with a rate of 107 bpm with no acute ST segment changes. Discharge Plan Triage Chief Complaint: Weakness ED Provider: Robert Allison Dx/Rx/DC Orders Clinical Impression: LIA (acute kidney injury), Weakness, Acute UTI, Falls, Acute hyponatremia Prescriptions: No Action gabapentin 300 mg capsule 100 mg PO QHS Januvia 50 mg tablet 50 mg PO DAILY Jardiance 10 mg tablet 10 mg PO DAILY Daliresp 250 mcg tablet 500 mcg PO DAILY multivitamin Tablet 1 tab PO DAILY pravastatin 20 mg tablet 20 mg PO DAILY potassium chloride [Klor-Con M20] 20 mEq tablet,ER particles/crystals 40 meq PO BID budesonide-formoterol [Symbicort] 160-4.5 mcg/actuation HFA aerosol inhaler 2 puff inhalation BID lisinopril 40 MG tablet 40 mg PO BID Patient Comments: bp aspirin 81 MG tablet,chewable 81 mg PO DAILY@0800 Patient Comments: heart health metoprolol tartrate 25 MG tablet 25 mg PO BID magnesium oxide 400 MG tablet 400 mg PO BID diltiazem HCl 180 MG tablet extended release 24 hr 180 mg PO DAILY albuterol sulfate 1 INHALER inhaler 2 puff INHALATION Q4H PRN PRN (Reason: Sob &/Or Wheezing) cod liver oil Oil 10 ml PO DAILY ascorbic acid (vitamin C) [C-1000] 1,000 mg tablet 1 g PO DAILY polyethylene glycol 3350 17 GM packet 0.5 ea PO BID Rx Instructions: 1/4-1/2 capful before each meal pantoprazole 40 MG tablet 40 mg PO QHS insulin detemir U-100 100 UNITS/ML insulin pen 56 units SC BIDCM Patient Comments: diabetic medication Rx Instructions: . insulin aspart U-100 100 UNIT/ML solution 22 unit SQ BIDCM Primary Care Provider: Ramone Smiley Referrals: Ramone Smiley MD [Primary Care Provider] - Disposition Disposition: Acute Care Hospital [facility]
--- NOTE | 2023-08-13 10:45 | RAD_ITS ---
STUDY: X-RAY CHEST REASON FOR EXAM: Female, 78 years old. Cough TECHNIQUE: Single AP portable view of the chest. COMPARISON: Comparison is made with prior study dated July 18, 2023. FINDINGS: EKG electrodes are seen. Hyperinflation. The lungs are clear. There is no demonstrated pleural abnormality. Normal size heart. Normal mediastinum and eliana. Normal visualized pulmonary arteries. There is atherosclerotic calcification of the aortic arch with tortuosity. Normal visualized thoracic spine. Normal visualized ribs, clavicles, and shoulders. There is no demonstrated abnormality of the visualized soft tissue structures of the upper abdomen. RAD/Chest 1 View (Portable) IMPRESSION: Hyperinflation. The lungs are clear. Electronically Signed: Robert Randall MD at 11:04 EST ,
[2023-08-13 10:57] LABS: Absolute Lymphocyte Count 1.37 X10^3/uL (0.83-4.51); Absolute Neutrophil Count 12.1 X10^3/uL (2.0-7.7); Basophil# 0.05 X10^3/uL; Basophil% 0.3 % (0-1); Eosinophil# 0.02 X10^3/uL; Eosinophils% 0.1 % (0-5); Hematocrit 32.6 % (37-47); Lymphocyte # 1.37 X10^3/ul (0.83-4.51); Lymphocyte % 9.4 % (19-41); Mean Corp Hgb Conc 30.7 g/dL (32-36); Mean Corpuscular Hgb 26.1 pg (27.0-32.0); Mean Corpuscular Volume 85.1 fL (81-99); Mean Platelet Vol. 10.8 fl (6.2-12.0); Monocyte# 0.89 X10^3/uL; Monocyte% 6.1 % (0-10); NRBC Flagged by Analyzer 0 % (0-5); Neutrophil # 12.11 X10^3/uL (2.7-7.7); Neutrophil % 82.7 % (47-70); Platelet Count 412 K/mm3 (150-450); RBC Distribution Width CV 17.2 % (11.6-14.6); RBC Distribution Width SD 53.7 fl (35.1-43.9); Red Blood Count 3.83 M/mm3 (4.2-5.4); White Blood Count 14.7 K/mm3 (4.4-11.0)
[2023-08-13] MEDS: 0.9% Normal Saline (500mL Bag) 500 ML 1000 ML IV (11:16)
[2023-08-13 11:22] LABS: ALB/GLOB Ratio 0.4 RATIO (0.9-2.4); AST(SGOT) 36 U/L (15-37); Alanine Aminotransfer ALT/SGPT 29 U/L (13-56); Albumin, Serum 2.2 g/dL (3.2-5.0); Alkaline Phosphatase 105 U/L (45-117); Anion Gap 12 (5-15); BUN 31 mg/dL (7-18); BUN/Creat Ratio 26.3 RATIO (10-20); Calcium,Total 10.5 mg/dL (8.5-10.1); Chloride 92 mmol/L (98-107); Creatinine, Serum 1.18 mg/dL (0.55-1.02); EST Glomerular Filtration Rate 47 mL/min (>60); Est Glom Filt Rate - Afr Amer 57 mL/min (>60); Estimated Creatinine Clearance 31.98 ml/min; Globulin 5.6 g/dL (2.2-4.2); Glucose 212 mg/dL (74-106); Potassium 3.8 mmol/L (3.5-5.1); Protein, Total 7.8 g/dL (6.4-8.2); Sodium Level 127 mmol/L (136-145); Troponin-I HS 39 pg/mL (3.0-54.0)
[2023-08-13 11:50] LABS: Lactic Acid 1.2 mmol/L (0.4-1.9)
[2023-08-13 12:44] LABS: Mucous, Urine 0 SEEN /hpf (<or=2+); Squamous Epithelial Cells - UA 0 SEEN /hpf (5-10)
[2023-08-13 12:46] LABS: Color, Urine Yellow (Yellow); Glucose, Dipstick 1000 mg/dl (Normal); Ketone-Dipstick 50 mg/dl (Negative); Leukocyte Esterase-Dipstick 500 /ul (Negative); Nitrite-Dipstick Negative (Negative); Occult Blood-Urine 50 /ul (Negative); Protein-Dipstick 30 mg/dl (Negative); Specific Gravity, Urine 1.015 (1.002-1.030); Urine Bilirubin Dipstick Negative (Negative); Urine Clarity Sl. Cloudy (Clear); Urine Urobilinogen Normal (Normal)
[2023-08-13] MEDS: 0.9% Normal Saline (1000mL) 1,000 ML 150 ML IV ×2 (13:00→17:32)
[2023-08-13 13:05] LABS: Bacteria 3+ /hpf (None Seen); White Blood Cells 10-25 SEEN /hpf (0-5)
[2023-08-13 13:06] LABS: Red Blood Cells-Urine 0-5 SEEN /hpf (0-5)
[2023-08-13] MEDS: Ciprofloxacin 400 MG/200 ML BAG 200 MG IV ×2 (14:14→22:07)
--- NOTE | 2023-08-13 14:31 | HP.PCM.HOS_ITS ---
HPI - General General Date of Admission: 08/13/23 Date of Service: 08/13/23 Chief Complaint: Increasing weakness HPI Narrative OLGA DONALDSON, is [id number] female history of GERD, COPD, hypertension, diabetes, chronic urinary retention with self cathing presented to [facility] 08/13/2023 with increasing generalized weakness and falls. Weakness has been increasing over the past several weeks and has fallen multiple times requiring help to physically get back up. Today had appointment with PCP but cannot get up off the couch due to weakness to son called EMS. Has had subjective fever off and on but denied any other focal complaints. In the ED patient found to have white blood cell count of 14.7 with left shift, worsened hyponatremia from baseline with a sodium of 127, LIA with creatinine of 1.18 with most recent creatinine 0.83 less than a month ago, calcium of 10.5 and evidence of UTI. Given the above as well as her worsening generalized weakness hospitalist contacted for admission. Patient evaluated at bedside with a family member present. She reports increasing weakness and falls for the past several weeks with last fall being about last Thursday, reports throughout her fall she had a bruised hip and her back was somewhat sore but no other physical complaints from falling. Has been so weak she has had a hard time getting off the couch. A week or 2 ago she had a period where she was vomiting up clear mucus for a while but this is completely resolved. No abdominal pain, has been self catheterizing for [address] follows [address] Dr[address] Anguiano and she reports this is because of incomplete emptying has not been having any problems with this recently. Denies any chest pain or shortness of breath, has had some subjective chills but no measured fevers. No other acute complaints at this Count includes the [facility] Medical History Anemia Anxiety Aortic stenosis Asthma Carpal tunnel syndrome of right wrist Cellulitis and abscess of finger, unspecified Chronic idiopathic constipation Chronic renal failure, stage 3 (moderate) Colon polyp COPD (chronic obstructive pulmonary disease) Depression Diabetes Diabetic retinopathy Foraminal stenosis of lumbar region Former smoker GERD (gastroesophageal reflux disease) Goiter, nontoxic, multinodular History of malignant neoplasm of breast Hx of venous thrombosis and embolism Hypercalcemia Hyperlipidemia Hypertension Hypokalemia Hyponatremia Hypophosphatemia Iron deficiency anemia Irregular heart beat Leg weakness, bilateral Lumbar spinal stenosis Microcytic anemia Multiple thyroid nodules Neurogenic bladder Paronychia of left index finger Peripheral artery disease Polypharmacy Pruritus Retinopathy Rhinitis Strain of right rotator cuff capsule Thyroid goiter Type 2 diabetes mellitus Urinary retention with incomplete bladder emptying Urine retention UTI (urinary tract infection) Vaginal cyst Vitamin D deficiency Home Medications lisinopril 40 mg tablet 40 mg PO BID BLOOD PRESSURE 12/25/14 [History Last Taken 08/12/23] aspirin 81 mg chewable tablet 81 mg PO DAILY HERT HEALTH 01/21/16 [History Last Taken 08/12/23] albuterol sulfate 90 mcg/actuation aerosol inhaler 2 puff inhalation Q4H PRN Sob &/Or Wheezing 08/16/18 [History Last Taken 07/10/20 06:30] diltiazem HCl 180 mg tablet,extended release 24 hr 180 mg PO DAILY BLOOD PRESSURE 08/16/18 [History Last Taken 08/12/23] magnesium oxide 400 mg (241.3 mg magnesium) tablet 400 mg PO BID SUPPLEMENT 08/16/18 [History Last Taken 08/12/23] metoprolol tartrate 25 mg tablet 25 mg PO BID BLOOD PRESSURE 08/16/18 [History Last Taken 08/12/23] insulin aspart U-100 100 unit/mL subcutaneous solution 22 unit subcut BIDCM DIABETES 12/02/19 [History Last Taken 08/12/23] insulin detemir U-100 100 unit/mL (3 mL) subcutaneous pen 56 units subcut BIDCM DIABETES 12/02/19 [History Last Taken 08/12/23] pantoprazole 40 mg tablet,delayed release 40 mg PO QHS ACID REFLUX 12/02/19 [History Last Taken 08/12/23] empagliflozin 10 mg tablet (Jardiance) 10 mg PO DAILY DIABETES 10/18/20 [History Last Taken 08/12/23] sitagliptin phosphate 50 mg tablet (Januvia) 50 mg PO DAILY DIABETES 10/18/20 [History Last Taken 08/12/23] budesonide-formoterol HFA 160 mcg-4.5 mcg/actuation aerosol inhaler (Symbicort) 2 puff inhalation BID 12/06/21 [History Last Taken 08/12/23] multivitamin 1 tab PO DAILY 12/06/21 [History Last Taken 08/12/23] potassium chloride 20 mEq tablet,extended release(part/cryst) (Klor-Con M) 40 meq PO BID SUPPLEMENT 12/06/21 [History Last Taken 08/12/23] pravastatin 20 mg tablet 20 mg PO DAILY CHOLESTEROL 12/06/21 [History Last Taken 08/12/23] ascorbic acid (vitamin C) 250 mg tablet (Vitamin C) 250 mg PO DAILY SUPPLEMENT 08/13/23 [History Last Taken 08/12/23] azelastine 137 mcg (0.1 %) nasal spray aerosol 137 mcg intranasal BID RUNNY NOSE 08/13/23 [History Last Taken 08/12/23] cod liver oil 1 cap PO DAILY SUPPLEMENT 08/13/23 [History Last Taken 08/12/23] dulaglutide 0.75 mg/0.5 mL subcutaneous pen injector (Trulicity) 0.75 mg subcut MO DIABETES 08/13/23 [History Last Taken 08/10/23] fiber 1 cap PO DAILY CONSTIPATION 08/13/23 [History Last Taken 08/12/23] gabapentin 100 mg capsule 100 mg PO QHS NERVE PAIN 08/13/23 [History Last Taken 08/12/23] roflumilast 500 mcg tablet 500 mcg PO DAILY COPD 08/13/23 [History Last Taken 08/12/23] Allergy/AdvReac Type Severity Reaction Status Date / Time adhesive tape [tape] Allergy NEEDS Verified 08/13/23 10:00 FOLLOW-UP amoxicillin Allergy YEAST Verified 08/13/23 10:00 INFECTION cephalexin monohydrate Allergy Rash Verified 08/13/23 10:00 [From Keflex] clopidogrel bisulfate Allergy Other Verified 08/13/23 10:00 [From Plavix] Family History Daughter Breast cancer Father Hypertension Sister Cancer Kidney disease Mother Pancreatic cancer Surgical History H/O dilation and curettage (~07/10/20) History of Achilles tendon repair History of lumpectomy of left breast Retinopathy S/P fine needle aspiration (~10/2020) Social History household members: spouse Smoking Status: Former smoker alcohol intake: never substance use type: does not use caffeine: Yes what type of physical activity do you participate in: none seatbelt use: always do you feel safe at home: Yes additional social history: [employer]- retired ROS ROS Narrative General: Has had some subjective chills HENT: Denies headache, denies stuffy nose, denies sore throat EYES: Denies changes in vision Resp: Denies cough, denies shortness of breath Cardiac: Denies chest pain GI: Denies abdominal pain, denies changes in bowel, denies nausea/vomiting : Denies changes in urination, chronically self catheterizes Extremity: Denies swelling MSK: Generalized weakness Neuro: Denies any numbness/tingling Heme: Denies any bleeding or bruising Skin: Denies rashes Psychiatric: No complaints voiced Vital Signs Vital Signs Vital Signs: 08/13/23 10:03 08/13/23 10:12 08/13/23 14:15 Temperature 97.9 F 98.6 F Temperature Source Temporal Oral Pulse Rate 116 H 102 H Respiratory Rate 18 20 H Respiratory Effort Normal Non-Labored Respiratory Pattern Normal Blood Pressure 126/58 H 152/59 H Blood Pressure Mean 80 90 Pulse Ox 99 97 Oxygen Delivery Method Room Air Room Air 08/13/23 14:17 08/13/23 14:18 Temperature 98.6 F 98.6 F Temperature Source Oral Pulse Rate 107 H 107 H Respiratory Rate 20 H 20 H Respiratory Effort Respiratory Pattern Blood Pressure 152/59 H 152/59 H Blood Pressure Mean 90 90 Pulse Ox 97 97 Oxygen Delivery Method Room Air Weight Weight: 63 kg Body Mass Index (BMI) 24.5 Physical Exam Narrative General: Alert, no apparent distress HEENT: normocephalic Eyes: Anicteric, normal conjunctiva, extraocular movements grossly intact, multiple skin tags Neck: Supple Respiratory: Clear to auscultation bilaterally, normal respiratory effort Cardiovascular: Regular rate and rhythm GI: Soft, nontender, nondistended Extremities: No edema Musculoskeletal: Moving all extremities Neuro: No overt focal neurological deficits Skin: No rashes appreciated Psych: Cooperative Results Lab / Micro Data 08/13/23 10:15 08/13/23 10:15 Labs: Laboratory Results - last 24 hr 08/13/23 10:15: WBC 14.7 H, RBC 3.83 L, Hgb 10.0 L, Hct 32.6 L, MCV 85.1, MCH 26.1 L, MCHC 30.7 L, RDW Std Deviation 53.7 H, RDW Coeff of Vijay 17.2 H, Plt Count 412, MPV 10.8, Immature Gran % (Auto) 1.400 H, Neut % (Auto) 82.7 H, Lymph % (Auto) 9.4 L, [place] % (Auto) 6.1, Eos % (Auto) 0.1, Baso % (Auto) 0.3, Absolute Neuts (auto) 12.1 H, Absolute Lymphs (auto) 1.37, Nucleated RBC % 0, Sodium 127 L, Potassium 3.8, Chloride 92 L, Carbon Dioxide 23.0, Anion Gap 12, BUN 31 H, Creatinine 1.18 H, Estim Creat Clear Calc 31.98, Est GFR (MDRD) Af Amer 57 L, Est GFR (MDRD) Non-Af 47 L, BUN/Creatinine Ratio 26.3 H, Glucose 212 H, Calcium 10.5 H, Total Bilirubin 0.60, AST 36, ALT 29, Alkaline Phosphatase 105, Troponin I High Sens 39, Total Protein 7.8, Albumin 2.2 L, Globulin 5.6 H, Albumin/Globulin Ratio 0.4 L 08/13/23 11:10: Lactic Acid 1.2 08/13/23 12:40: Urine Color Yellow, Urine Clarity Sl. Cloudy, Urine pH 5.0, Ur Specific [place] 1.015, Urine Protein 30 H, Urine Glucose (UA) 1000 H, Urine Ketones 50 H, Urine Occult Blood 50 H, Urine Nitrite Negative, Urine Bilirubin Negative, Urine Urobilinogen Normal, Ur Leukocyte Esterase 500 H, Urine RBC 0-5 SEEN, Urine WBC 10-25 SEEN, Ur Squamous Epith Cells 0 SEEN, Urine Bacteria 3+, Urine Mucus 0 SEEN Micro: Microbiology 08/13/23 11:00 Nasal Secretion SARS-CoV-2 & FLU Antigen (Rapid) - Final Imagaing Radiology Impression Chest X-Ray 08/13/23 10:45 IMPRESSION: Hyperinflation. The lungs are clear. Electronically Signed: Robert Randall MD at 11:04 EST , Assessment & Plan Assessment/Plan (1) LIA (acute kidney injury): (2) Acute hyponatremia: (3) Acute UTI: (4) Asthma: (5) COPD (chronic obstructive pulmonary disease): (6) GERD (gastroesophageal reflux disease): (7) History of malignant neoplasm of breast: (8) Hypertension: (9) Neurogenic bladder: (10) Type 2 diabetes mellitus: PLAN: Plan # Generalized weakness -Likely multifactorial contributed to by dehydration with LIA, hypercalcemia, UTI as well as hyponatremia -Workup and management as below -Consult PT/OT -CM and SW c/s # UTI in setting of chronic urinary retention with self-catheterization -UA suggestive of UTI -Also has elevated white blood cell count -Blood cultures and urine culture -Due to allergies patient started on Cipro, continue Cipro -IV fluids -Given her urinary retention and UTI will place temporary Serna # LIA -May be due to poor p.o. intake versus underlying infection versus hypercalcemia causing dehydration -IV fluids -Antibiotics -If does not improve with conservative measures will need further workup -Hold home lisinopril # Hyponatremia -Baseline quite variable, most recently 131 and is down to 127 -Will obtain urine and serum studies to better evaluate # Hypercalcemia -Will hydrate and obtain further workup -Vitamin D, mag, Phos, PTH # COPD -Continue home medications # Hypertension -Continue home medications but will hold lisinopril due to LIA #GERD -Continue PPI #Type 2 diabetes mellitus -Glucose checks and sliding scale insulin -Long-acting and Premeal insulin -Hold oral hypoglycemics #DVT ppx: Heparin subcu Heydi Amaya MD Charges/Coding Visit Charges Inpatient E&M: 71575 Init Hosp L2
[2023-08-13] MEDS: Insulin Lispro 100 UNIT/ML INSULN.PEN SC ×2 (16:09→21:58)
[2023-08-13] MEDS: Insulin Lispro 100 UNIT/ML INSULN.PEN 15 UNIT SC (16:09)
[2023-08-13 16:28] LABS: Osmolality, Urine 269 mOsm/KG
[2023-08-13 16:39] LABS: Urea Nitrogen, Urine 334 mg/dL (NO RANGE EST.); Urine Chloride 20 mmol/L (Not Establ.); Urine Sodium 24 mmol/L (Not Establ.)
[2023-08-13] MEDS: Budesonide Respules 0.5 MG/2 ML AMPUL.NEB. INHALATION (19:37)
[2023-08-13] MEDS: Albuterol 2.5 MG/3 ML VIAL.NEB. INHALATION (19:37)
[2023-08-13] MEDS: Gabapentin 100 MG Capsule PO (21:54)
[2023-08-13] MEDS: Metoprolol Tartrate 25 MG Tablet PO (22:01)
[2023-08-13] MEDS: Pantoprazole Sodium 40 MG Tablet PO (22:01)
[2023-08-13] MEDS: Pravastatin 20 MG Tablet PO (22:02)
[2023-08-13] MEDS: Insulin Glargine-YFGN 100 UNIT/ML Pen 50 UNIT SC (22:04)
[2023-08-13] MEDS: Heparin Injection (Vial) 5,000 UNIT/ML VIAL 5000 UNIT SC (22:05)
[2023-08-13 22:16] LABS: Bedside Glucose 216 mg/dL (74-106)
[2023-08-14 00:58] LABS: Bedside Glucose 201 mg/dL (74-106)
[2023-08-14] MEDS: 0.9% Normal Saline (1000mL) 1,000 ML 150 ML IV (02:01)
[2023-08-14 03:34] VITALS: BP 125/49; PULSE 89; RESP 16; TEMP 37.1; O2SAT 92
[2023-08-14 07:44] LABS: Absolute Lymphocyte Count 1.25 X10^3/uL (0.83-4.51); Basophil# 0.03 X10^3/uL; Basophil% 0.3 % (0-1); Eosinophil# 0.07 X10^3/uL; Eosinophils% 0.6 % (0-5); Hematocrit 26.8 % (37-47); Hemoglobin 8.4 g/dL (12.0-15.0); Lymphocyte # 1.25 X10^3/ul (0.83-4.51); Lymphocyte % 11.1 % (19-41); Mean Corp Hgb Conc 31.3 g/dL (32-36); Mean Corpuscular Hgb 26.3 pg (27.0-32.0); Mean Platelet Vol. 10.3 fl (6.2-12.0); Monocyte# 0.69 X10^3/uL; Monocyte% 6.1 % (0-10); NRBC Flagged by Analyzer 0 % (0-5); Neutrophil # 8.95 X10^3/uL (2.7-7.7); Neutrophil % 79.7 % (47-70); Platelet Count 382 K/mm3 (150-450); RBC Distribution Width CV 17.3 % (11.6-14.6); RBC Distribution Width SD 53.1 fl (35.1-43.9); Red Blood Count 3.19 M/mm3 (4.2-5.4); White Blood Count 11.2 K/mm3 (4.4-11.0)
[2023-08-14 08:10] LABS: Bedside Glucose 138 mg/dL (74-106)
[2023-08-14 08:10] LABS: Osmolality, Serum 285 mOsm/KG (280-301)
[2023-08-14 08:13] LABS: Anion Gap 7 (5-15); BUN 21 mg/dL (7-18); BUN/Creat Ratio 24.4 RATIO (10-20); Calcium,Total 9.9 mg/dL (8.5-10.1); Chloride 103 mmol/L (98-107); Creatinine, Serum 0.86 mg/dL (0.55-1.02); EST Glomerular Filtration Rate 68 mL/min (>60); Est Glom Filt Rate - Afr Amer 82 mL/min (>60); Estimated Creatinine Clearance 43.88 ml/min; Free T3 1.9 pg/mL (2.18-3.98); Glucose 138 mg/dL (74-106); Magnesium 2.1 mg/dL (1.6-2.6); Phosphorus 1.7 mg/dL (2.5-4.9); Potassium 3.2 mmol/L (3.5-5.1); Sodium Level 136 mmol/L (136-145); T4 Free Direct 1.51 ng/dL (0.76-1.46); Thyroid Stim Hormone (TSH) 0.01 uIU/mL (0.358-3.74)
[2023-08-14 08:29] LABS: PTHIN 153.7 pg/mL (18.4-80.1)
[2023-08-14 08:33] LABS: Vitamin D,25 Hydroxy 39.9 ng/mL
[2023-08-14] MEDS: Insulin Glargine-YFGN 100 UNIT/ML Pen 50 UNIT SC ×2 (09:00→20:58)
[2023-08-14] MEDS: Insulin Lispro 100 UNIT/ML INSULN.PEN 15 UNIT SC (09:00)
[2023-08-14 09:15] VITALS: BP 130/55; PULSE 89; RESP 16; TEMP 36.9; O2SAT 95
[2023-08-14 09:58] VITALS: BP 130/55; PULSE 89
[2023-08-14] MEDS: Aspirin 81 MG TAB.CHEW PO (09:58)
[2023-08-14] MEDS: Metoprolol Tartrate 25 MG Tablet PO ×2 (09:58→20:58)
[2023-08-14] MEDS: dilTIAZem CD 180 MG Capsule PO (09:59)
[2023-08-14] MEDS: Heparin Injection (Vial) 5,000 UNIT/ML VIAL 5000 UNIT SC ×2 (09:59→20:57)
--- NOTE | 2023-08-14 10:10 | CASEMGMT ---
RN MANJEET Face to Face with patient for initial transition planning/care coordination assessment. RN CM introduced self and role at [facility]. Patient lying in bed, alert and oriented. Patient willing to participate in assessment and is able to answer all questions appropriately. Care providers, pharmacy, and demographics verified. Patient wishes to discharge home, will monitor for HHC vs SNF pending progress with therapy. Patient states she has no further needs or concerns at this time. CM to follow for discharge planning needs that may arise. PCP: Baljit Specialists: Silvio urologist; Kermit, surgeon Preferred Pharmacy: [facility] Insurance: [facility] Prescription Benefit: yes Living Will/HPOA: yes, son Sarita Pollard LNOK: , son Living Arrangements: Patient lives with and son in a 2 story duplex with bed and bath on first floor. Patient states she is independent for self care at home. Transportation: son DME/HHC: Patient has shower chair, raised toilet, cane, grab bars, and rollator at home. Patient is active with [facility]. No previous SNF. Patient has had [facility] HHC in the past. Disposition Plan: TBD, anticipate HHC vs SNF pending therapy. Marley LAYTON, RN, CM
[2023-08-14] MEDS: Potassium Chloride Oral Tablet 20 MEQ 40 MEQ PO (11:45)
[2023-08-14] MEDS: Ciprofloxacin 400 MG/200 ML BAG 200 MG IV ×2 (12:21→20:57)
[2023-08-14 12:35] LABS: Bedside Glucose 61 mg/dL (74-106)
--- NOTE | 2023-08-14 14:54 | PCM.PN.HOSP ---
Reason for Visit Reason for Visit: Diagnoses Type 2 diabetes mellitus without complications (08/13/23) Hypo-osmolality and hyponatremia (08/13/23) Essential (primary) hypertension (08/13/23) Chronic obstructive pulmonary disease, unspecified (08/13/23) Unspecified asthma, uncomplicated (08/13/23) Gastro-esophageal reflux disease without esophagitis (08/13/23) Acute kidney failure, unspecified (08/13/23) Neuromuscular dysfunction of bladder, unspecified (08/13/23) Urinary tract infection, site not specified (08/13/23) Personal history of malignant neoplasm of breast (08/13/23) Subjective Subjective Patient seen at bedside. Sitting comfortably in bed, conversing normally, no acute distress. Patient states he feels comfortable at rest but notes that she has had falls about every day at home for the past several weeks. Lives at home with her and son. States she generally has had worsening weakness over the past several weeks for unclear reason. She otherwise denies any fevers or chills today. Denies any other acute pain or discomfort. No other acute concerns. Objective Data Objective Data Vital Signs: Vital Signs Temp Pulse Resp BP Pulse Ox O2 Del Method 98.5 F 89 16 130/55 H 95 Room Air 08/14/23 09:15 08/14/23 09:58 08/14/23 09:15 08/14/23 09:58 08/14/23 09:15 08/14/23 13:46 Oxygen Delivery Method Room Air Weight: 60.1 kg Body Mass Index (BMI) 23.4 Intake & Output: Intake and Output for Last 24 Hours 08/12/23 08/13/23 08/14/23 23:59 23:59 23:59 Intake Total 1810.0 / 1810.0 2950 / 2950 Output Total 550 / 550 1280 / 1280 Balance 1260.0 / 1260.0 1670 / 1670 Medical Nutrition Assessment Dietitian: Malnutrition Criteria Met Start: 08/14/23 13:49 Freq: Status: Active Protocol: Document 08/14/23 13:49 AG (Rec: 08/14/23 13:49 AG [id number]) Nutrition Malnutrition Evidence of Malnutrition Exists Yes Malnutrition (severe): Chronic Evidenced By Suboptimal Energy Intake ( Severe),Weight Loss (Severe) Clinical Problem Chronic Disease or Condition Related Malnutrition Etiology severe, chronic malnutrition related to inadequate energy intake d/t debility Signs/Symptoms as evidenced by unintentional 9% wt loss x 1 month, estimated PO intake meeting < 75% of estimated energy needs >1 month Status Active Problem Recommendation Dietitian Recommendations/Changes will adjust diet to 1800 calorie controlled/consistent CHO, will add glucerna 120mL 4x/day w/ medpass given signs/ symptoms of malnutrition Lab / Micro Data 08/14/23 07:10 08/14/23 07:10 Labs: Laboratory Results - last 24 hr 08/13/23 15:55: Urine Osmolality 269, Ur Random Sodium 24, Urine Creatinine 37.60, Urine Potassium 8.0, Urine Chloride 20, Urine Urea Nitrogen 334 08/13/23 15:57: POC Glucose 201 H 08/13/23 21:57: POC Glucose 216 H 08/14/23 07:10: WBC 11.2 H, RBC 3.19 L, Hgb 8.4 L, Hct 26.8 L, MCV 84.0, MCH 26.3 L, MCHC 31.3 L, RDW Std Deviation 53.1 H, RDW Coeff of Vijay 17.3 H, Plt Count 382, MPV 10.3, Immature Gran % (Auto) 2.200 H, Neut % (Auto) 79.7 H, Lymph % (Auto) 11.1 L, [place] % (Auto) 6.1, Eos % (Auto) 0.6, Baso % (Auto) 0.3, Absolute Neuts (auto) 9.0 H, Absolute Lymphs (auto) 1.25, Nucleated RBC % 0, Sodium 136, Potassium 3.2 L, Chloride 103, Carbon Dioxide 26.0, Anion Gap 7, BUN 21 H, Creatinine 0.86, Estim Creat Clear Calc 43.88, Est GFR (MDRD) Af Amer 82, Est GFR (MDRD) Non-Af 68, BUN/Creatinine Ratio 24.4 H, Glucose 138 H, Serum Osmolality 285, Calcium 9.9, Phosphorus 1.7 L, Magnesium 2.1, Vitamin D 25-Hydroxy 39.9, TSH 0.01 L, Free T4 1.51 H, Free T3 pg/dL 1.9 L, PTH Intact 153.7 H 08/14/23 07:45: POC Glucose 138 H 08/14/23 12:14: POC Glucose 61 L Micro: Microbiology 08/13/23 12:40 Urine, Catheterized Urine Culture - Preliminary GNR lactose online program coordinator 08/13/23 12:05 Blood Culture (Wb) - Anticubital Right Blood Culture - Preliminary GNR lactose online program coordinator 08/13/23 11:10 Blood Culture (Wb) - Anticubital Right Blood Culture - Preliminary GNR lactose online program coordinator 08/13/23 11:00 Nasal Secretion SARS-CoV-2 & FLU Antigen (Rapid) - Final Physical Exam Const alert, no apparent distress and average body habitus Constitutional Narrative: Pleasant elderly female, chronically ill-appearing, sitting comfortably in bed, conversing normally, no acute distress. General Appearance: cooperative and comfortable HEENT normocephalic, head/scalp atraumatic, hearing grossly normal bilaterally, nasal mucous membranes and turbinates normal and moist oral mucous membranes Eyes PERRL, EOMs intact bilaterally and conjunctivae normal Neck full ROM, no lymphadenopathy and supple Lymph Lymphatic: no lymphadenopathy noted Chest inspection of chest normal Resp normal respiratory effort, normal air movement, no use of accessory muscles and clear to auscultation bilaterally Cardio regular rate, regular rhythm, no murmurs and peripheral pulses 2+ throughout GI normal to inspection, nondistended, normoactive bowel sounds, soft to palpation, non-tender and non-distended Back/Spine normal ROM Extremity normal to inspection and no pedal edema Skin no rashes or lesions noted Neuro moves all extremities and no focal motor deficits Psych mental status grossly normal Assessment & Plan Assessment/Plan (1) Falls: (2) Weakness: (3) Acute UTI: PLAN: Plan Patient is a 78-year-old female who presented to [facility] ED on 08/13/2023 with increasing generalized weakness and falls. 1. Generalized weakness Likely multifactorial due to dehydration with LIA, hypercalcemia and UTI. ? PT/OT/case management following. Treating UTI and LIA as noted below. Fall precautions in place. 2. UTI in setting of chronic urinary retention with self-catheterization UA on admit suggestive of UTI. WBC count elevated on admit as well. Initiated on ciprofloxacin due to allergies to other medications. IV fluids given in the ED. Serna catheter placed in the ED as well. ? Continue ciprofloxacin for now. Maintain Serna catheter. Trend CBC. Urine culture and blood cultures preliminarily positive for gram-negative wes lactose online program coordinator, follow-up speciation and sensitivities. 3. LIA, resolved ? Creatinine 1.18 on admit, baseline around 0.7-0.8. Likely due to poor p.o. intake plus or minus underlying infection. Improved to baseline on hospital day 2 after IV hydration. Continue to monitor BMP daily. Continue holding home lisinopril for now, restart as able. 4. Hyponatremia, resolved ? Sodium 127 on admit, improved to 136 after IV fluid resuscitation. Very likely hypovolemic hyponatremia initially. Monitor BMP daily. 5. Hypercalcemia, improving ? Calcium 10.5 on admit, improved to 9.9 after IV fluid resuscitation. PTH elevated at 153. Mild hypercalcemia could be secondary to primary hyperparathyroidism. Monitor daily calcium. Plan for outpatient follow-up with PCP to address further as needed. 6. Acute on chronic normocytic anemia Hemoglobin 10.0 on admit, baseline hemoglobin appears to be around 10-11. Hemoglobin decreased to 8.4 on hospital day 2. No active bleeding, may be due to hemodilution after IV fluids. Chronic anemia with unclear etiology. ? Monitor daily CBC. Iron studies, B12, folate ordered. Chronic medical conditions: ? Hypertension: ? GERD: Continue home PPI. ? Type 2 diabetes mellitus: DVT prophylaxis: Heparin subcu CODE STATUS: Full code, verified Expected disposition: SNF, D Total clinical time spent by myself addressing the patient's medical issues, reviewing all the data, and collaborating with patient's care team: 35 minutes. Charges/Coding Visit Charges Inpatient E&M: 72613 Subs Hosp L2
[2023-08-14] MEDS: Glucerna Shake 120 ML LIQUID PO ×3 (15:00→20:57)
--- NOTE | 2023-08-14 15:44 | CASEMGMT ---
Per nursing admission questions patient does not have Healthcare Power of [id number] Armor Crewman or Healthcare Living Will and is not interested in documents. Missy Cobos ENGINE BUILDUP [employer]CH[employer]IC HAND RIVETER
[2023-08-14 16:00] VITALS: BP 128/56; PULSE 82; RESP 16; TEMP 36.8; O2SAT 97
[2023-08-14 16:25] LABS: Vitamin B12 250 pg/mL (211-911)
[2023-08-14 16:35] LABS: Ferritin 1578 ng/mL (8-252); Iron 14 ug/dL (50-170); Iron Binding Capacity,Total 197 ug/dL (250-450); PERCENT IRON SATURATION 7.1 % (15.0-55.0)
[2023-08-14 16:47] LABS: Bedside Glucose 89 mg/dL (74-106)
[2023-08-14 20:56] VITALS: BP 151/57; PULSE 90; RESP 16; TEMP 36.9; O2SAT 99
[2023-08-14] MEDS: Gabapentin 100 MG Capsule PO (20:56)
[2023-08-14 20:58] VITALS: PULSE 90
[2023-08-14] MEDS: Pantoprazole Sodium 40 MG Tablet PO (20:58)
[2023-08-14] MEDS: Pravastatin 20 MG Tablet PO (20:59)
[2023-08-14 21:21] LABS: Bedside Glucose 132 mg/dL (74-106)
[2023-08-15] VITALS (7 sets, daily range): BP systolic 122–140; BP diastolic 52–90; PULSE 71–89; RESP 16–20; TEMP 36.1–36.7; O2SAT 96–100
[2023-08-15 03:46] LABS: Bedside Glucose 62 mg/dL (74-106)
[2023-08-15] MEDS: Acetaminophen 325 MG Tablet 650 MG PO (04:03)
--- NOTE | 2023-08-15 04:10 | NURSING ---
Pt noted to be sweaty while getting vitals. Blood sugar 61. Gave pt orange juice and ya doones; blood sugar rechecked and it was 105.
[2023-08-15 04:27] LABS: Bedside Glucose 105 mg/dL (74-106)
[2023-08-15 07:22] LABS: Bedside Glucose 135 mg/dL (74-106)
[2023-08-15 07:24] LABS: Anion Gap 3 (5-15); BUN 18 mg/dL (7-18); BUN/Creat Ratio 18.4 RATIO (10-20); Calcium,Total 10.3 mg/dL (8.5-10.1); Chloride 106 mmol/L (98-107); Creatinine, Serum 0.98 mg/dL (0.55-1.02); EST Glomerular Filtration Rate 58 mL/min (>60); Est Glom Filt Rate - Afr Amer 71 mL/min (>60); Estimated Creatinine Clearance 38.51 ml/min; Glucose 105 mg/dL (74-106); Potassium 4.7 mmol/L (3.5-5.1); Sodium Level 137 mmol/L (136-145)
[2023-08-15 08:36] LABS: Hematocrit 28.8 % (37-47); Hemoglobin 9.1 g/dL (12.0-15.0); Mean Corp Hgb Conc 31.6 g/dL (32-36); Mean Corpuscular Hgb 26.7 pg (27.0-32.0); Mean Corpuscular Volume 84.5 fL (81-99); Mean Platelet Vol. 10.7 fl (6.2-12.0); Platelet Count 452 K/mm3 (150-450); RBC Distribution Width CV 17.6 % (11.6-14.6); RBC Distribution Width SD 54.8 fl (35.1-43.9); Red Blood Count 3.41 M/mm3 (4.2-5.4); White Blood Count 9.6 K/mm3 (4.4-11.0)
[2023-08-15] MEDS: Glucerna Shake 120 ML LIQUID PO ×4 (08:43→20:31)
[2023-08-15] MEDS: Heparin Injection (Vial) 5,000 UNIT/ML VIAL 5000 UNIT SC ×2 (08:43→20:32)
[2023-08-15] MEDS: dilTIAZem CD 180 MG Capsule PO (08:43)
[2023-08-15] MEDS: Metoprolol Tartrate 25 MG Tablet PO ×2 (08:43→20:32)
[2023-08-15] MEDS: Aspirin 81 MG TAB.CHEW PO (08:43)
[2023-08-15] MEDS: Ciprofloxacin 400 MG/200 ML BAG 200 MG IV ×2 (08:51→20:32)
[2023-08-15 09:24] LABS: Bedside Glucose 91 mg/dL (74-106)
[2023-08-15] MEDS: Insulin Lispro 100 UNIT/ML INSULN.PEN SC ×3 (11:41→16:15)
[2023-08-15 12:38] LABS: Bedside Glucose 191 mg/dL (74-106)
--- NOTE | 2023-08-15 13:17 | PN.HOSP_ITS ---
Reason for Visit Reason for Visit: Diagnoses Type 2 diabetes mellitus without complications (08/13/23) Hypo-osmolality and hyponatremia (08/13/23) Essential (primary) hypertension (08/13/23) Chronic obstructive pulmonary disease, unspecified (08/13/23) Unspecified asthma, uncomplicated (08/13/23) Gastro-esophageal reflux disease without esophagitis (08/13/23) Acute kidney failure, unspecified (08/13/23) Neuromuscular dysfunction of bladder, unspecified (08/13/23) Urinary tract infection, site not specified (08/13/23) Weakness (08/13/23) Unspecified fall, initial encounter (08/13/23) Personal history of malignant neoplasm of breast (08/13/23) Subjective Subjective Patient seen at bedside this morning. Sitting comfortably in bedside chair, conversing normally, no acute distress. Patient states that she feels fairly well this morning, improved from previous days. States that with her low blood sugar this morning she did feel somewhat fatigued, improved with eating. Denies any other acute pain or discomfort today. No other acute concerns. Objective Data Objective Data Vital Signs: Vital Signs Temp Pulse Resp BP Pulse Ox O2 Del Method 97.7 F L 80 16 140/58 H 100 Room Air 08/15/23 08:38 08/15/23 08:43 08/15/23 08:38 08/15/23 08:43 08/15/23 08:38 08/15/23 08:38 Oxygen Delivery Method Room Air Weight: 60.1 kg Body Mass Index (BMI) 23.4 Intake & Output: Intake and Output for Last 24 Hours 08/13/23 08/14/23 08/15/23 23:59 23:59 23:59 Intake Total 1810.0 / 1810.0 3650 / 3650 1520 / 1520 Output Total 550 / 550 1630 / 2330 1350 / 1350 Balance 1260.0 / 1260.0 2020 / 1320 170 / 170 Medical Nutrition Assessment Dietitian: Malnutrition Criteria Met Start: 08/14/23 13:49 Freq: Status: Active Protocol: Document 08/14/23 13:49 AG (Rec: 08/14/23 13:49 AG [id number]) Nutrition Malnutrition Evidence of Malnutrition Exists Yes Malnutrition (severe): Chronic Evidenced By Suboptimal Energy Intake ( Severe),Weight Loss (Severe) Clinical Problem Chronic Disease or Condition Related Malnutrition Etiology severe, chronic malnutrition related to inadequate energy intake d/t debility Signs/Symptoms as evidenced by unintentional 9% wt loss x 1 month, estimated PO intake meeting < 75% of estimated energy needs >1 month Status Active Problem Recommendation Dietitian Recommendations/Changes will adjust diet to 1800 calorie controlled/consistent CHO, will add glucerna 120mL 4x/day w/ medpass given signs/ symptoms of malnutrition Lab / Micro Data 08/15/23 07:36 08/15/23 06:47 Labs: Laboratory Results - last 24 hr 08/14/23 07:10: Iron 14 L, TIBC 197 L, Iron Saturation 7.1 L, Ferritin 1578 H, Folate 2.90 L 08/14/23 16:20: POC Glucose 89 08/14/23 17:10: Vitamin B12 250 08/14/23 20:55: POC Glucose 132 H 08/15/23 03:25: POC Glucose 62 L 08/15/23 03:50: POC Glucose 105 08/15/23 06:47: WBC Cancelled, Corrected WBC Cancelled, RBC Cancelled, Hgb Cancelled, Hct Cancelled, MCV Cancelled, MCH Cancelled, MCHC Cancelled, RDW Std Deviation Cancelled, RDW Coeff of Vijay Cancelled, Plt Count Cancelled, MPV Cancelled, Diff Path Review Cancelled, Sodium 137, Potassium 4.7, Chloride 106, Carbon Dioxide 28.0, Anion Gap 3 L, BUN 18, Creatinine 0.98, Estim Creat Clear Calc 38.51, Est GFR (MDRD) Af Amer 71, Est GFR (MDRD) Non-Af 58 L, BUN/Creatinine Ratio 18.4, Glucose 105, Calcium 10.3 H 08/15/23 07:02: POC Glucose 135 H 08/15/23 07:36: WBC 9.6, RBC 3.41 L, Hgb 9.1 L, Hct 28.8 L, MCV 84.5, MCH 26.7 L , MCHC 31.6 L, RDW Std Deviation 54.8 H, RDW Coeff of Vijay 17.6 H, Plt Count 452 H, MPV 10.7 08/15/23 08:37: POC Glucose 91 08/15/23 11:37: POC Glucose 191 H Micro: Microbiology 08/13/23 11:10 Blood Culture (Wb) - Anticubital Right Blood Culture - Preliminary Klebsiella pneumoniae sp pneum 08/13/23 12:40 Urine, Catheterized Urine Culture - Final Klebsiella pneumoniae sp pneum 08/13/23 12:05 Blood Culture (Wb) - Anticubital Right Blood Culture - Preliminary GNR lactose bow maker custom 08/13/23 11:00 Nasal Secretion SARS-CoV-2 & FLU Antigen (Rapid) - Final Physical Exam Const alert, no apparent distress and average body habitus Constitutional Narrative: Pleasant elderly female, chronically ill-appearing, sitting comfortably in bedside chair, conversing normally, no acute distress. General Appearance: cooperative and comfortable HEENT normocephalic, head/scalp atraumatic, hearing grossly normal bilaterally, nasal mucous membranes and turbinates normal and moist oral mucous membranes Eyes PERRL, EOMs intact bilaterally and conjunctivae normal Neck full ROM, no lymphadenopathy and supple Lymph Lymphatic: no lymphadenopathy noted Chest inspection of chest normal Resp normal respiratory effort, normal air movement, no use of accessory muscles and clear to auscultation bilaterally Cardio regular rate, regular rhythm, no murmurs and peripheral pulses 2+ throughout GI normal to inspection, nondistended, normoactive bowel sounds, soft to palpation, non-tender and non-distended Back/Spine normal ROM Extremity normal to inspection and no pedal edema Skin no rashes or lesions noted Neuro moves all extremities and no focal motor deficits Psych mental status grossly normal Assessment & Plan Assessment/Plan (1) Falls: (2) Weakness: (3) Acute UTI: PLAN: Plan Patient is a 78-year-old female who presented to [facility] ED on 08/13/2023 with increasing generalized weakness and falls. 1. Generalized weakness Likely multifactorial due to dehydration with LIA, hypercalcemia and UTI. ? PT/OT/case management following. Treating UTI and LIA as noted below. Fall precautions in place. 2. UTI in setting of chronic urinary retention with self-catheterization UA on admit suggestive of UTI. WBC count elevated on admit as well. Initiated on ciprofloxacin due to allergies to other medications. IV fluids given in the ED. Serna catheter placed in the ED as well. ? Continue ciprofloxacin for now. Maintain Serna catheter. Trend CBC. Urine culture and blood cultures preliminarily positive for gram-negative wes lactose bow maker custom, follow-up speciation and sensitivities. 3. LIA, resolved ? Creatinine 1.18 on admit, baseline around 0.7-0.8. Likely due to poor p.o. intake plus or minus underlying infection. Improved to baseline on hospital day 2 after IV hydration. Continue to monitor BMP daily. Continue holding home lisinopril for now, restart as able. 4. Type 2 diabetes mellitus History of poorly controlled diabetes with very high insulin requirements. Home regimen prior to admission of detemir 56 units twice daily, aspart 22 units twice daily with meals. ? Blood sugars have been low on multiple checks during this admission. Have suspicion patient may have significant reduced insulin requirements at this point, and have concern that low blood sugars may have been a factor in her recent weakness and falls. Will reduce to Lantus 20 units at night, Humalog 5 units twice daily with meals plus sliding scale. Monitor sugars closely. 5. Hyponatremia, resolved ? Sodium 127 on admit, improved to 136 after IV fluid resuscitation. Very likely hypovolemic hyponatremia initially. Monitor BMP daily. 6. Hypercalcemia, stable Calcium 10.5 on admit. PTH elevated at 153. Mild hypercalcemia could be secondary to primary hyperparathyroidism. ? Calcium initially improved with IV fluids, now stable. Monitor daily calcium. Plan for outpatient follow-up with PCP to address further as needed. 6. Acute on chronic normocytic anemia, stable Hemoglobin 10.0 on admit, baseline hemoglobin appears to be around 10-11. Hemoglobin decreased to 8.4 on hospital day 2. No active bleeding, may be due to hemodilution after IV fluids. Iron studies consistent with anemia of chronic disease. ? Hemoglobin stable. Monitor daily CBC. Chronic medical conditions: ? Hypertension: Continue home diltiazem, Lopressor. Holding home lisinopril for now, restart as needed. ? GERD: Continue home PPI. DVT prophylaxis: Heparin subcu CODE STATUS: Full code, verified Expected disposition: SNF, 2 to 3 days Total clinical time spent by myself addressing the patient's medical issues, reviewing all the data, and collaborating with patient's care team: 35 minutes. Charges/Coding Visit Charges Inpatient E&M: 62824 Subs Hosp L2
[2023-08-15] MEDS: Senna/Docusate Sodium 1 Tablet 2 TABLET PO ×2 (13:44→20:32)
[2023-08-15 16:36] LABS: Bedside Glucose 183 mg/dL (74-106)
--- NOTE | 2023-08-15 17:20 | CASEMGMT ---
Social Work SW spoke w/pt as PT/OT recommending SNF at discharge. Pt informed SW she will be able to manage at home, does not thinks he needs to go anywhere for rehab. She states her son is there as well as her , states her son can help her. She is open to home health for both therapy and aide services. Additionally pt needs a walker. SW will let CM know to follow up on Thursday. JERSEY Wells
[2023-08-15] MEDS: Pravastatin 20 MG Tablet PO (20:31)
[2023-08-15] MEDS: Pantoprazole Sodium 40 MG Tablet PO (20:31)
[2023-08-15] MEDS: 0.9% Saline Lock 10 ML Syringe IV (20:32)
[2023-08-15] MEDS: Gabapentin 100 MG Capsule PO (20:32)
[2023-08-15 22:33] LABS: Bedside Glucose 123 mg/dL (74-106)
[2023-08-16] VITALS (8 sets, daily range): BP systolic 118–150; BP diastolic 47–60; PULSE 87–90; RESP 18–20; TEMP 36.3–36.7; O2SAT 93–98
[2023-08-16 07:58] LABS: Hematocrit 29.5 % (37-47); Hemoglobin 9.2 g/dL (12.0-15.0); Mean Corp Hgb Conc 31.2 g/dL (32-36); Mean Corpuscular Hgb 26.2 pg (27.0-32.0); Mean Platelet Vol. 10.2 fl (6.2-12.0); Platelet Count 451 K/mm3 (150-450); RBC Distribution Width CV 17.9 % (11.6-14.6); RBC Distribution Width SD 54.9 fl (35.1-43.9); Red Blood Count 3.51 M/mm3 (4.2-5.4)
[2023-08-16 08:02] LABS: Bedside Glucose 130 mg/dL (74-106)
[2023-08-16 08:07] LABS: Anion Gap 2 (5-15); BUN 18 mg/dL (7-18); BUN/Creat Ratio 20.5 RATIO (10-20); Calcium,Total 11.3 mg/dL (8.5-10.1); Chloride 104 mmol/L (98-107); Creatinine, Serum 0.88 mg/dL (0.55-1.02); EST Glomerular Filtration Rate 66 mL/min (>60); Est Glom Filt Rate - Afr Amer 80 mL/min (>60); Estimated Creatinine Clearance 42.88 ml/min; Glucose 132 mg/dL (74-106); Potassium 4.4 mmol/L (3.5-5.1); Sodium Level 135 mmol/L (136-145)
[2023-08-16] MEDS: Aspirin 81 MG TAB.CHEW PO (08:45)
[2023-08-16] MEDS: Metoprolol Tartrate 25 MG Tablet PO ×2 (08:45→20:54)
[2023-08-16] MEDS: dilTIAZem CD 180 MG Capsule PO (08:45)
[2023-08-16] MEDS: Insulin Lispro 100 UNIT/ML INSULN.PEN SC ×4 (08:45→16:50)
[2023-08-16] MEDS: Heparin Injection (Vial) 5,000 UNIT/ML VIAL 5000 UNIT SC (08:45)
[2023-08-16] MEDS: Glucerna Shake 120 ML LIQUID PO ×3 (10:01→20:54)
[2023-08-16] MEDS: 0.9% Saline Lock 10 ML Syringe IV (10:01)
[2023-08-16] MEDS: Ciprofloxacin 400 MG/200 ML BAG 200 MG IV (10:03)
[2023-08-16 12:05] LABS: Bedside Glucose 170 mg/dL (74-106)
--- NOTE | 2023-08-16 13:00 | PCM.PN.HOSP ---
Reason for Visit Reason for Visit: Diagnoses Type 2 diabetes mellitus without complications (08/13/23) Hypo-osmolality and hyponatremia (08/13/23) Essential (primary) hypertension (08/13/23) Chronic obstructive pulmonary disease, unspecified (08/13/23) Unspecified asthma, uncomplicated (08/13/23) Gastro-esophageal reflux disease without esophagitis (08/13/23) Acute kidney failure, unspecified (08/13/23) Neuromuscular dysfunction of bladder, unspecified (08/13/23) Urinary tract infection, site not specified (08/13/23) Weakness (08/13/23) Unspecified fall, initial encounter (08/13/23) Personal history of malignant neoplasm of breast (08/13/23) Subjective Subjective Patient seen at bedside this morning. Sitting comfortably in bedside chair, conversing normally, no acute distress. Patient states she has felt well since yesterday, denies any acute pain or discomfort. Continues to feel somewhat weak with ambulation but slightly improved from previous. No other acute concerns this morning. Objective Data Objective Data Vital Signs: Vital Signs Temp Pulse Resp BP Pulse Ox O2 Del Method 98.0 F 88 18 118/47 L 98 Room Air 08/16/23 10:00 08/16/23 10:00 08/16/23 10:00 08/16/23 10:00 08/16/23 10:00 08/16/23 10:00 Oxygen Delivery Method Room Air Weight: 60.1 kg Body Mass Index (BMI) 23.4 Intake & Output: Intake and Output for Last 24 Hours 08/14/23 08/15/23 08/16/23 23:59 23:59 23:59 Intake Total 3650 / 3650 2470 / 2620 556.67 / 556.67 Output Total 1630 / 2330 2200 / 2500 2075 / 2075 Balance 2020 / 1320 270 / 120 -1518.33 / -1518.33 Medical Nutrition Assessment Dietitian: Malnutrition Criteria Met Start: 08/14/23 13:49 Freq: Status: Active Protocol: Document 08/14/23 13:49 AG (Rec: 08/14/23 13:49 AG [id number]) Nutrition Malnutrition Evidence of Malnutrition Exists Yes Malnutrition (severe): Chronic Evidenced By Suboptimal Energy Intake ( Severe),Weight Loss (Severe) Clinical Problem Chronic Disease or Condition Related Malnutrition Etiology severe, chronic malnutrition related to inadequate energy intake d/t debility Signs/Symptoms as evidenced by unintentional 9% wt loss x 1 month, estimated PO intake meeting < 75% of estimated energy needs >1 month Status Active Problem Recommendation Dietitian Recommendations/Changes will adjust diet to 1800 calorie controlled/consistent CHO, will add glucerna 120mL 4x/day w/ medpass given signs/ symptoms of malnutrition Lab / Micro Data 08/16/23 07:30 08/16/23 07:30 Labs: Laboratory Results - last 24 hr 08/15/23 16:05: POC Glucose 183 H 08/15/23 20:26: POC Glucose 123 H 08/16/23 07:30: WBC 8.0, RBC 3.51 L, Hgb 9.2 L, Hct 29.5 L, MCV 84.0, MCH 26.2 L, MCHC 31.2 L, RDW Std Deviation 54.9 H, RDW Coeff of Vijay 17.9 H, Plt Count 451 H, MPV 10.2, Sodium 135 L, Potassium 4.4, Chloride 104, Carbon Dioxide 29.0, Anion Gap 2 L, BUN 18, Creatinine 0.88, Estim Creat Clear Calc 42.88, Est GFR (MDRD) Af Amer 80, Est GFR (MDRD) Non-Af 66, BUN/Creatinine Ratio 20.5 H, Glucose 132 H, Calcium 11.3 H 08/16/23 07:41: POC Glucose 130 H 08/16/23 11:42: POC Glucose 170 H Micro: Microbiology 08/13/23 12:05 Blood Culture (Wb) - Anticubital Right Blood Culture - Final GNR lactose outer diameter technician 08/13/23 11:10 Blood Culture (Wb) - Anticubital Right Blood Culture - Final Klebsiella pneumoniae sp pneum 08/13/23 12:40 Urine, Catheterized Urine Culture - Final Klebsiella pneumoniae sp pneum 08/13/23 11:00 Nasal Secretion SARS-CoV-2 & FLU Antigen (Rapid) - Final Physical Exam Const alert, no apparent distress and average body habitus Constitutional Narrative: Pleasant elderly female, chronically ill-appearing, sitting comfortably in bedside chair, conversing normally, no acute distress. General Appearance: cooperative and comfortable HEENT normocephalic, head/scalp atraumatic, hearing grossly normal bilaterally, nasal mucous membranes and turbinates normal and moist oral mucous membranes Eyes PERRL, EOMs intact bilaterally and conjunctivae normal Neck full ROM, no lymphadenopathy and supple Lymph Lymphatic: no lymphadenopathy noted Chest inspection of chest normal Resp normal respiratory effort, normal air movement, no use of accessory muscles and clear to auscultation bilaterally Cardio regular rate, regular rhythm, no murmurs and peripheral pulses 2+ throughout GI normal to inspection, nondistended, normoactive bowel sounds, soft to palpation, non-tender and non-distended Back/Spine normal ROM Extremity normal to inspection and no pedal edema Skin no rashes or lesions noted Neuro moves all extremities and no focal motor deficits Speech: speech normal Psych mental status grossly normal Assessment & Plan Assessment/Plan (1) Falls: (2) Weakness: (3) Acute UTI: PLAN: Plan Patient is a 78-year-old female who presented to [facility] ED on 08/13/2023 with increasing generalized weakness and falls. 1. Generalized weakness Likely multifactorial due to UTI with bacteremia, dehydration with LIA, hypercalcemia. Suspect low blood sugars at home from unnecessarily high insulin doses may have also been contributing to her weakness and falls. ? PT/OT/case management following. Patient likely wanted to go home with home health care on discharge. Treating UTI and LIA as noted below. Fall precautions in place. 2. UTI in setting of chronic urinary retention with self-catheterization UA on admit suggestive of UTI. WBC count elevated on admit as well. Initiated on ciprofloxacin due to allergies to other medications. IV fluids given in the ED. Serna catheter placed in the ED as well. Blood cultures +2/2, urine culture positive for Klebsiella. ? Continue ciprofloxacin, planning for 7 day course. Maintain Serna catheter; likely discharge home with Serna, can follow-up outpatient with urology as needed. 3. LIA, resolved ? Creatinine 1.18 on admit, baseline around 0.7-0.8. Likely due to poor p.o. intake plus or minus underlying infection. Improved to baseline on hospital day 2 after IV hydration. Continue to monitor BMP daily. Continue holding home lisinopril for now, like okay to restart on discharge. 4. Type 2 diabetes mellitus History of poorly controlled diabetes with very high insulin requirements. Home regimen prior to admission of detemir 56 units twice daily, aspart 22 units twice daily with meals. ? Blood sugars have been low on multiple checks during this admission. Patient reduced to Lantus 20 units at night, Humalog 5 units twice daily with meals plus sliding scale and sugars have remained stable in the low to mid 100s. Recommend discharging on a regimen similar to this. 5. Hyponatremia, resolved ? Sodium 127 on admit, improved to 136 after IV fluid resuscitation. Very likely hypovolemic hyponatremia initially. Monitor BMP daily. 6. Hypercalcemia, stable Calcium 10.5 on admit. PTH elevated at 153. Mild hypercalcemia could be secondary to primary hyperparathyroidism. ? Calcium initially improved with IV fluids, now stable. Monitor daily calcium. Plan for outpatient follow-up with PCP to address further as needed. 6. Acute on chronic normocytic anemia, stable Hemoglobin 10.0 on admit, baseline hemoglobin appears to be around 10-11. Hemoglobin decreased to 8.4 on hospital day 2. No active bleeding, may be due to hemodilution after IV fluids. Iron studies consistent with anemia of chronic disease. ? Hemoglobin stable. Monitor daily CBC. Chronic medical conditions: ? Hypertension: Continue home diltiazem, Lopressor. Holding home lisinopril for now, restart as needed. ? GERD: Continue home PPI. DVT prophylaxis: Lovenox CODE STATUS: Full code, verified Expected disposition: Home with home health care, 1 to 2 days Total clinical time spent by myself addressing the patient's medical issues, reviewing all the data, and collaborating with patient's care team: 35 minutes. Charges/Coding Visit Charges Inpatient E&M: 68708 Subs Hosp L2
[2023-08-16 16:40] LABS: Bedside Glucose 175 mg/dL (74-106)
[2023-08-16] MEDS: Gabapentin 100 MG Capsule PO (20:54)
[2023-08-16] MEDS: Ciprofloxacin 250 MG Tablet PO (20:55)
[2023-08-16] MEDS: Pravastatin 20 MG Tablet PO (20:55)
[2023-08-16] MEDS: Polyethylene Glycol 3350 17 GM PACKET PO (20:55)
[2023-08-16] MEDS: Pantoprazole Sodium 40 MG Tablet PO (20:55)
[2023-08-16 22:41] LABS: Bedside Glucose 142 mg/dL (74-106)
[2023-08-17] VITALS (8 sets, daily range): BP systolic 130–140; BP diastolic 49–65; PULSE 70–84; RESP 18; TEMP 36.2–37.1; O2SAT 91–98
[2023-08-17 06:35] LABS: Hematocrit 28.8 % (37-47); Hemoglobin 8.9 g/dL (12.0-15.0); Mean Corp Hgb Conc 30.9 g/dL (32-36); Mean Corpuscular Hgb 26.1 pg (27.0-32.0); Mean Corpuscular Volume 84.5 fL (81-99); Mean Platelet Vol. 10.4 fl (6.2-12.0); Platelet Count 480 K/mm3 (150-450); RBC Distribution Width CV 17.9 % (11.6-14.6); RBC Distribution Width SD 55.6 fl (35.1-43.9); Red Blood Count 3.41 M/mm3 (4.2-5.4); White Blood Count 8.4 K/mm3 (4.4-11.0)
[2023-08-17 06:47] LABS: Anion Gap 4 (5-15); BUN 18 mg/dL (7-18); BUN/Creat Ratio 19.9 RATIO (10-20); Calcium,Total 10.6 mg/dL (8.5-10.1); Chloride 105 mmol/L (98-107); Creatinine, Serum 0.91 mg/dL (0.55-1.02); EST Glomerular Filtration Rate 64 mL/min (>60); Est Glom Filt Rate - Afr Amer 77 mL/min (>60); Estimated Creatinine Clearance 41.47 ml/min; Glucose 167 mg/dL (74-106); Potassium 4.9 mmol/L (3.5-5.1); Sodium Level 139 mmol/L (136-145)
[2023-08-17] MEDS: Aspirin 81 MG TAB.CHEW PO (07:39)
[2023-08-17] MEDS: Insulin Lispro 100 UNIT/ML INSULN.PEN SC ×3 (07:40→11:39)
[2023-08-17] MEDS: Albuterol 2.5 MG/3 ML VIAL.NEB. INHALATION (08:01)
[2023-08-17 08:08] LABS: Bedside Glucose 165 mg/dL (74-106)
--- NOTE | 2023-08-17 08:36 | PN.HOSP_ITS ---
Reason for Visit Reason for Visit: Diagnoses Type 2 diabetes mellitus without complications (08/13/23) Hypo-osmolality and hyponatremia (08/13/23) Essential (primary) hypertension (08/13/23) Chronic obstructive pulmonary disease, unspecified (08/13/23) Unspecified asthma, uncomplicated (08/13/23) Gastro-esophageal reflux disease without esophagitis (08/13/23) Acute kidney failure, unspecified (08/13/23) Neuromuscular dysfunction of bladder, unspecified (08/13/23) Urinary tract infection, site not specified (08/13/23) Weakness (08/13/23) Unspecified fall, initial encounter (08/13/23) Personal history of malignant neoplasm of breast (08/13/23) Objective Data Objective Data Vital Signs: Vital Signs Temp Pulse Resp BP Pulse Ox O2 Del Method 97.6 F L 70 18 134/52 H 91 Room Air 08/17/23 07:35 08/17/23 08:02 08/17/23 08:02 08/17/23 07:35 08/17/23 08:03 08/17/23 08:03 Oxygen Delivery Method Room Air Weight: 60.1 kg Body Mass Index (BMI) 23.4 Intake & Output: Intake and Output for Last 24 Hours 08/15/23 08/16/23 08/17/23 23:59 23:59 23:59 Intake Total 2470 / 2620 896.67 / 896.67 Output Total 2200 / 2500 2700 / 3600 900 / 900 Balance 270 / 120 -1803.33 / -2703.33 -900 / -900 Medical Nutrition Assessment Dietitian: Malnutrition Criteria Met Start: 08/14/23 13:49 Freq: Status: Active Protocol: Document 08/14/23 13:49 AG (Rec: 08/14/23 13:49 AG [id number]) Nutrition Malnutrition Evidence of Malnutrition Exists Yes Malnutrition (severe): Chronic Evidenced By Suboptimal Energy Intake ( Severe),Weight Loss (Severe) Clinical Problem Chronic Disease or Condition Related Malnutrition Etiology severe, chronic malnutrition related to inadequate energy intake d/t debility Signs/Symptoms as evidenced by unintentional 9% wt loss x 1 month, estimated PO intake meeting < 75% of estimated energy needs >1 month Status Active Problem Recommendation Dietitian Recommendations/Changes will adjust diet to 1800 calorie controlled/consistent CHO, will add glucerna 120mL 4x/day w/ medpass given signs/ symptoms of malnutrition Lab / Micro Data 08/17/23 04:50 08/17/23 04:50 Labs: Laboratory Results - last 24 hr 08/16/23 11:42: POC Glucose 170 H 08/16/23 16:10: POC Glucose 175 H 08/16/23 20:51: POC Glucose 142 H 08/17/23 04:50: WBC 8.4, RBC 3.41 L, Hgb 8.9 L, Hct 28.8 L, MCV 84.5, MCH 26.1 L , MCHC 30.9 L, RDW Std Deviation 55.6 H, RDW Coeff of Vijay 17.9 H, Plt Count 480 H, MPV 10.4, Sodium 139, Potassium 4.9, Chloride 105, Carbon Dioxide 30.0, Anion Gap 4 L, BUN 18, Creatinine 0.91, Estim Creat Clear Calc 41.47, Est GFR (MDRD) Af Amer 77, Est GFR (MDRD) Non-Af 64, BUN/Creatinine Ratio 19.9, Glucose 167 H, Calcium 10.6 H 08/17/23 07:34: POC Glucose 165 H Micro: Microbiology 08/13/23 12:05 Blood Culture (Wb) - Anticubital Right Blood Culture - Final GNR lactose tube turner 08/13/23 11:10 Blood Culture (Wb) - Anticubital Right Blood Culture - Final Klebsiella pneumoniae sp pneum 08/13/23 12:40 Urine, Catheterized Urine Culture - Final Klebsiella pneumoniae sp pneum 08/13/23 11:00 Nasal Secretion SARS-CoV-2 & FLU Antigen (Rapid) - Final Physical Exam Narrative General: Alert, no apparent distress HEENT: normocephalic Eyes: Anicteric, normal conjunctiva, extraocular movements grossly intact, multiple skin tags Neck: Supple Respiratory: Clear to auscultation bilaterally, normal respiratory effort Cardiovascular: Regular rate and rhythm GI: Soft, nontender, nondistended Extremities: No edema Musculoskeletal: Moving all extremities Neuro: No overt focal neurological deficits Skin: No rashes appreciated Psych: Cooperative Assessment & Plan Assessment/Plan (1) Falls: (2) Weakness: (3) Acute UTI: PLAN: Plan Patient is a 78-year-old female who presented to [facility] ED on 08/13/2023 with increasing generalized weakness and falls. 1. Generalized weakness Likely multifactorial due to UTI with bacteremia, dehydration with LIA, hypercalcemia. Suspect low blood sugars at home from unnecessarily high insulin doses may have also been contributing to her weakness and falls. ? PT/OT/case management following. Patient likely wanted to go home with home health care on discharge. Treating UTI and LIA as noted below. Fall precautions in place. 2. UTI in setting of chronic urinary retention with self-catheterization UA on admit suggestive of UTI. WBC count elevated on admit as well. Initiated on ciprofloxacin due to allergies to other medications. IV fluids given in the ED. Serna catheter placed in the ED as well. Blood cultures +2/, urine cultu re positive for Klebsiella. ? Continue ciprofloxacin, planning for 7 day course. Maintain Serna catheter; likely discharge home with Serna, can follow-up outpatient with urology as needed. 3. LIA, resolved ? Creatinine 1.18 on admit, baseline around 0.7-0.8. Likely due to poor p.o. intake plus or minus underlying infection. Improved to baseline on hospital day 2 after IV hydration. Continue to monitor BMP daily. Continue holding home lisinopril for now, like okay to restart on discharge. 4. Type 2 diabetes mellitus History of poorly controlled diabetes with very high insulin requirements. Home regimen prior to admission of detemir 56 units twice daily, aspart 22 units twice daily with meals. ? Blood sugars have been low on multiple checks during this admission. Patient reduced to Lantus 20 units at night, Humalog 5 units twice daily with meals plus sliding scale and sugars have remained stable in the low to mid 100s. Recommend discharging on a regimen similar to this. 5. Hyponatremia, resolved ? Sodium 127 on admit, improved to 136 after IV fluid resuscitation. Very likely hypovolemic hyponatremia initially. Monitor BMP daily. 6. Hypercalcemia, stable Calcium 10.5 on admit. PTH elevated at 153. Mild hypercalcemia could be secondary to primary hyperparathyroidism. ? Calcium initially improved with IV fluids, now stable. Monitor daily calcium. Plan for outpatient follow-up with PCP to address further as needed. 6. Acute on chronic normocytic anemia, stable Hemoglobin 10.0 on admit, baseline hemoglobin appears to be around 10-11. Hemoglobin decreased to 8.4 on hospital day 2. No active bleeding, may be due to hemodilution after IV fluids. Iron studies consistent with anemia of chronic disease. ? Hemoglobin stable. Monitor daily CBC. Chronic medical conditions: ? Hypertension: Continue home diltiazem, Lopressor. Holding home lisinopril for now, restart as needed. ? GERD: Continue home PPI. DVT prophylaxis: Lovenox CODE STATUS: Full code, verified Expected disposition: Home with home health care, 1 to 2 days Total clinical time spent by myself addressing the patient's medical issues, reviewing all the data, and collaborating with patient's care team: 35 minutes.
[2023-08-17] MEDS: Ciprofloxacin 250 MG Tablet PO (10:08)
[2023-08-17] MEDS: Polyethylene Glycol 3350 17 GM PACKET PO (10:08)
[2023-08-17] MEDS: Metoprolol Tartrate 25 MG Tablet PO (10:08)
[2023-08-17] MEDS: Senna/Docusate Sodium 1 Tablet 2 TABLET PO (10:08)
[2023-08-17] MEDS: Enoxaparin 40 MG/0.4 ML Syringe SC (10:08)
[2023-08-17] MEDS: dilTIAZem CD 180 MG Capsule PO (10:09)
[2023-08-17] MEDS: Glucerna Shake 120 ML LIQUID PO (10:13)
--- NOTE | 2023-08-17 11:11 | PCM.DC.SUM ---
Providers Date of Admission: 08/13/23 Date of Discharge: 08/17/23 Primary Care Physician: Dr. Ramone Smiley MD Reason For Visit: WEAKNESS, LIA, UTI, FREQUENT FALLS Diagnosis Discharge Diagnosis (1) Falls: Status: Acute Code(s): W19.XXXA - Unspecified fall, initial encounter (2) Weakness: Status: Acute Code(s): R53.1 - Weakness (3) Acute UTI: Status: Acute Code(s): N39.0 - Urinary tract infection, site not specified Medications at Discharge Home Medications aspirin 81 mg chewable tablet 81 mg PO DAILY [facility] 01/21/16 albuterol sulfate 90 mcg/actuation aerosol inhaler 2 puff inhalation Q4H PRN Sob &/Or Wheezing 08/16/18 diltiazem HCl 180 mg tablet,extended release 24 hr 180 mg PO DAILY BLOOD PRESSURE 08/16/18 magnesium oxide 400 mg (241.3 mg magnesium) tablet 400 mg PO BID SUPPLEMENT 08/16/18 metoprolol tartrate 25 mg tablet 25 mg PO BID BLOOD PRESSURE 08/16/18 pantoprazole 40 mg tablet,delayed release 40 mg PO QHS ACID REFLUX 12/02/19 empagliflozin 10 mg tablet (Jardiance) 10 mg PO DAILY DIABETES 10/18/20 sitagliptin phosphate 50 mg tablet (Januvia) 50 mg PO DAILY DIABETES 10/18/20 budesonide-formoterol HFA 160 mcg-4.5 mcg/actuation aerosol inhaler (Symbicort) 2 puff inhalation BID 12/06/21 multivitamin 1 tab PO DAILY 12/06/21 pravastatin 20 mg tablet 20 mg PO DAILY CHOLESTEROL 12/06/21 ascorbic acid (vitamin C) 250 mg tablet (Vitamin C) 250 mg PO DAILY SUPPLEMENT 08/13/23 azelastine 137 mcg (0.1 %) nasal spray aerosol 137 mcg intranasal BID RUNNY NOSE 08/13/23 cod liver oil 1 cap PO DAILY SUPPLEMENT 08/13/23 dulaglutide 0.75 mg/0.5 mL subcutaneous pen injector (Trulicity) 0.75 mg subcut MO DIABETES 08/13/23 fiber 1 cap PO DAILY CONSTIPATION 08/13/23 gabapentin 100 mg capsule 100 mg PO QHS NERVE PAIN 08/13/23 roflumilast 500 mcg tablet 500 mcg PO DAILY COPD 08/13/23 ciprofloxacin HCl 250 mg tablet 250 mg PO BID #10 tabs 08/17/23 insulin aspart U-100 100 unit/mL subcutaneous solution 5 unit (0.05 mL) subcut BIDCM DIABETES #10 mL 08/17/23 insulin detemir U-100 100 unit/mL (3 mL) subcutaneous pen 20 unit (0.2 mL) subcut BIDCM DIABETES #15 mL 08/17/23 Hospital Course Summary of Care Provided Minutes Spent on Discharge: 35 Hospital Course: Patient is a 78-year-old lady admitted with progressive generalized weakness diagnosed with acute cystitis 1. Acute cystitis secondary to intermittent self-catheterization with Klebsiella ? Admitted to regular nursing floor patient started on antibiotics per protocol urine cultures came back positive for Klebsiella discharged on ciprofloxacin 2. Acute kidney injury ? Resolved with rehydration. Patient was on lisinopril discontinued 3. Physical deconditioning - Requested for PT OT eval and social work case manager to assist with discharge planning 4. Diabetes mellitus type II -Patient apparently did experience episodes of hypoglycemia she was on high doses of long-acting insulin doses adjusted on discharge 5. Anemia - Secondary to chronic disorder monitoring H&H and transfuse if patient becomes symptomatic or hemoglobin falls below 7 6. Hypercalcemia, stable Calcium 10.5 on admit. PTH elevated at 153. Mild hypercalcemia could be secondary to primary hyperparathyroidism. ? Calcium initially improved with IV fluids, now stable. Monitor daily calcium. Plan for outpatient follow-up with PCP to address further as needed. 7. Essential hypertension ? Patient home medications adjusted 8. GERD ? On PPI 9. DVT prophylaxis ? SC Lovenox Physical Exam Narrative GENERAL: cooperative HEENT: Atraumatic; normocephalic EYES; Anicteric, Normal Conjunctiva NECK; supple, normal thyroid, RESPIRATORY: Diminished to auscultation CARDIOVASCULAR: Regular S1 S2, GI: soft, normoactive bowel sounds, : No Renal angle tenderness; EXTREMITIES: No edema, no clubbing, MUSCULOSKELETAL: no muscle wasting NEURO: Awake; no lateralizing signs. 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/t debility Signs/Symptoms as evidenced by unintentional 9% wt loss x 1 month, estimated PO intake meeting < 75% of estimated energy needs >1 month Status Active Problem Recommendation Dietitian Recommendations/Changes will adjust diet to 1800 calorie controlled/consistent CHO, will add glucerna 120mL 4x/day w/ medpass given signs/ symptoms of malnutrition Weight / BMI Weight Weight: 60.1 kg Body Mass Index (BMI) 23.4 ABG / Lab / Microbiology Data 08/17/23 04:50 08/17/23 04:50 Laboratory: Laboratory Results - last 24 hr 08/16/23 11:42: POC Glucose 170 H 08/16/23 16:10: POC Glucose 175 H 08/16/23 20:51: POC Glucose 142 H 08/17/23 04:50: WBC 8.4, RBC 3.41 L, Hgb 8.9 L, Hct 28.8 L, MCV 84.5, MCH 26.1 L, MCHC 30.9 L, RDW Std Deviation 55.6 H, RDW Coeff of Vijay 17.9 H, Plt Count 480 H, MPV 10.4, Sodium 139, Potassium 4.9, Chloride 105, Carbon Dioxide 30.0, Anion Gap 4 L, BUN 18, Creatinine 0.91, Estim Creat Clear Calc 41.47, Est GFR (MDRD) Af Amer 77, Est GFR (MDRD) Non-Af 64, BUN/Creatinine Ratio 19.9, Glucose 167 H, Calcium 10.6 H 08/17/23 07:34: POC Glucose 165 H Microbiology: Microbiology 08/13/23 12:05 Blood Culture (Wb) - Anticubital Right Blood Culture - Final GNR lactose 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 lead developer 08/13/23 11:10 Blood Culture (Wb) - Anticubital Right Blood Culture - Final Klebsiella pneumoniae sp pneum 08/13/23 12:40 Urine, Catheterized Urine Culture - Final Klebsiella pneumoniae sp pneum 08/13/23 11:00 Nasal Secretion SARS-CoV-2 & FLU Antigen (Rapid) - Final D/C Instructions Discharge Diet: No restrictions Discharge Activity: Return to Normal Activity Call your doctor if you observe: Fever of 101 or Higher, Shortness of breath, Fainting spells and Chest pain Meaningful Use Info Meaningful Use Diagnoses (Choose all that apply): None applicable Discharge Plan Admission Admit Date/Time: 08/13/23 14:31 Attending Provider: Sandeep Denson Primary Care Provider: Ramone Smiley Consulting Providers: Ramone Veras; Nestor Bartlett Discharge Orders/Prescriptions Prescriptions: New ciprofloxacin HCl 250 mg Tablet 250 mg PO BID Qty: 10 0RF Continued Januvia 50 mg tablet 50 mg PO DAILY Jardiance 10 mg tablet 10 mg PO DAILY multivitamin Tablet 1 tab PO DAILY pravastatin 20 mg tablet 20 mg PO DAILY budesonide-formoterol [Symbicort] 160-4.5 mcg/actuation HFA aerosol inhaler 2 puff inhalation BID aspirin 81 MG tablet,chewable 81 mg PO DAILY metoprolol tartrate 25 MG tablet 25 mg PO BID magnesium oxide 400 MG tablet 400 mg PO BID diltiazem HCl 180 MG tablet extended release 24 hr 180 mg PO DAILY albuterol sulfate 1 INHALER inhaler 2 puff INHALATION Q4H PRN (Reason: Sob &/Or Wheezing) pantoprazole 40 MG tablet 40 mg PO QHS gabapentin 100 mg capsule 100 mg PO QHS roflumilast 500 mcg tablet 500 mcg PO DAILY Trulicity 0.75 mg/0.5 mL pen injector 0.75 mg subcut MO cod liver oil Capsule 1 cap PO DAILY fiber Capsule 1 cap PO DAILY ascorbic acid (vitamin C) [Vitamin C] 250 mg tablet 250 mg PO DAILY azelastine 137 mcg (0.1 %) aerosol,spray 137 mcg intranasal BID Changed insulin aspart U-100 100 UNIT/ML solution 5 unit subcut BIDCM Qty: 10 0RF insulin detemir U-100 100 UNITS/ML insulin pen 20 unit SC BIDCM Qty: 15 0RF Rx Instructions: . Discontinued potassium chloride [Klor-Con M20] 20 mEq tablet,ER particles/crystals 40 meq PO BID lisinopril 40 MG tablet 40 mg PO BID Referrals / Follow Up: Anne Marie Marshall MD [Med Staff - [employer]] - 08/25/23 10:30 am Disposition Disposition (needs filled in before D/C Order can be placed): Home, Self Care Charges/Coding Visit Charges Inpatient E&M: 55754 Disch Hosp >30min
--- NOTE | 2023-08-17 11:37 | PHA.DC.MC.R ---
Pharmacy [facility] Pharmacy Service has performed discharge medication reconciliation and counseling for this patient. The patient's discharge medication list was reviewed for discrepancies and discrepancies were resolved. The patient was counseled on the following discharge medications and changes in medications for homegoing were reviewed. The Reason for Use, instructions for use, and potential side effects were reviewed for all new medications. The patient's questions regarding all of their medications were answered. 1. Ciprofloxacin 250 mg PO BID x 5 days The patient was able to verbally demonstrate an understanding of their discharge medications. Medications at Discharge Home Medications aspirin 81 mg chewable tablet 81 mg PO DAILY [facility] 01/21/16 albuterol sulfate 90 mcg/actuation aerosol inhaler 2 puff inhalation Q4H PRN Sob &/Or Wheezing 08/16/18 diltiazem HCl 180 mg tablet,extended release 24 hr 180 mg PO DAILY BLOOD PRESSURE 08/16/18 magnesium oxide 400 mg (241.3 mg magnesium) tablet 400 mg PO BID SUPPLEMENT 08/16/18 metoprolol tartrate 25 mg tablet 25 mg PO BID BLOOD PRESSURE 08/16/18 pantoprazole 40 mg tablet,delayed release 40 mg PO QHS ACID REFLUX 12/02/19 empagliflozin 10 mg tablet (Jardiance) 10 mg PO DAILY DIABETES 10/18/20 sitagliptin phosphate 50 mg tablet (Januvia) 50 mg PO DAILY DIABETES 10/18/20 budesonide-formoterol HFA 160 mcg-4.5 mcg/actuation aerosol inhaler (Symbicort) 2 puff inhalation BID 12/06/21 multivitamin 1 tab PO DAILY 12/06/21 pravastatin 20 mg tablet 20 mg PO DAILY CHOLESTEROL 12/06/21 ascorbic acid (vitamin C) 250 mg tablet (Vitamin C) 250 mg PO DAILY SUPPLEMENT 08/13/23 azelastine 137 mcg (0.1 %) nasal spray aerosol 137 mcg intranasal BID RUNNY NOSE 08/13/23 cod liver oil 1 cap PO DAILY SUPPLEMENT 08/13/23 dulaglutide 0.75 mg/0.5 mL subcutaneous pen injector (Trulicity) 0.75 mg subcut MO DIABETES 08/13/23 fiber 1 cap PO DAILY CONSTIPATION 08/13/23 gabapentin 100 mg capsule 100 mg PO QHS NERVE PAIN 08/13/23 roflumilast 500 mcg tablet 500 mcg PO DAILY COPD 08/13/23 ciprofloxacin HCl 250 mg tablet 250 mg PO BID #10 tabs 08/17/23 insulin aspart U-100 100 unit/mL subcutaneous solution 5 unit (0.05 mL) subcut BIDCM DIABETES #10 mL 08/17/23 insulin detemir U-100 100 unit/mL (3 mL) subcutaneous pen 20 unit (0.2 mL) subcut BIDCM DIABETES #15 mL 08/17/23
--- NOTE | 2023-08-17 11:43 | CASEMGMT ---
Addendum entered by Marley Pastor 08/17/23 12:30: SHAWANDA BURROUGHS updated patient, requested son be updated. RN CM called son and updated regarding discharge plans. 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 Son had no further questions or concerns. Addendum entered by Marley Pastor 08/17/23 12:22: RN CM received call back from [facility] and they are able to accept patient with planned start of care for tomorrow. Discharge plan updated. Original Note: Patient has order for discharge. RN CM in to discuss needs at discharge. Patient would like HHC and walker at discharge. A list of C providers including quality and resource use data and consistent with the patient?s preferred geographical region, medical needs, and insurance network were provided from the [employer] Guide. Patient prefers [facility] for HHC. Patient would like [facility] for walker. Patient denied further needs at discharge. Patient had no further questions or concerns. SHAWANDA CM called and made referral to [facility], awaiting acceptance. Script received for walker and referral sent to [employer] via [employer].
[2023-08-17 12:10] LABS: Bedside Glucose 267 mg/dL (74-106)
== END 2023-08-17 14:19 | disposition home health service (06) | DRG 689 ==
LOC: ED 13:40 → PCU 14:23
PROVIDERS: Hospitalist; Admitting Provider Internal Medicine; Emergency Provider Emergency Medicine; PCP Family Medicine; Visit Provider Internal Medicine
DX: N30.00 Acute cystitis without hematuria (principal); E43 Unspecified severe protein-calorie malnutrition; N17.9 Acute kidney failure, unspecified; E87.1 Hypo-osmolality and hyponatremia; T83.518A Infection and inflammatory reaction due to other urinary catheter, initial encounter; E11.649 Type 2 diabetes mellitus with hypoglycemia without coma; D63.8 Anemia in other chronic diseases classified elsewhere; J44.9 Chronic obstructive pulmonary disease, unspecified; N18.30 Chronic kidney disease, stage 3 unspecified; E11.22 Type 2 diabetes mellitus with diabetic chronic kidney disease; E11.51 Type 2 diabetes mellitus with diabetic peripheral angiopathy without gangrene; Z79.4 Long term (current) use of insulin; I12.9 Hypertensive chronic kidney disease with stage 1 through stage 4 chronic kidney disease, or unspecified chronic kidney disease; E78.5 Hyperlipidemia, unspecified; K21.9 Gastro-esophageal reflux disease without esophagitis; E83.52 Hypercalcemia; N31.9 Neuromuscular dysfunction of bladder, unspecified; Z79.82 Long term (current) use of aspirin; Z87.891 Personal history of nicotine dependence; Z79.51 Long term (current) use of inhaled steroids; B96.1 Klebsiella pneumoniae [K. pneumoniae] as the cause of diseases classified elsewhere; Y73.8 Miscellaneous gastroenterology and urology devices associated with adverse incidents, not elsewhere classified; Z79.899 Other long term (current) drug therapy; R33.9 Retention of urine, unspecified; Z68.24 Body mass index [BMI] 24.0-24.9, adult
CPT/HCPCS: 36415; 71045; 80048; 80053; 81001; 82306; 82436; 82570; 82607; 82728; 82746; 82962; 83540; 83550; 83605; 83735; 83930; 83935; 83970; 84100; 84133; 84300; 84439; 84443; 84481; 84484; 84540; 85025; 85027; 87040; 87077; 87086; 87088; 87186; 87428; 90471; 93005; 94640; 97110; 97116; 97162; 97166; 97530; 97535; 97802; 99285; J7030; J7040; A4216; J0744

== ENCOUNTER → 2023-10-26 | Outpatient (CLI) | payer MEDICARE, SELFPAY ==
[2023-10-26 17:44] LABS: Absolute Lymphocyte Count 2.86 X10^3/uL (0.83-4.51); Absolute Neutrophil Count 5.1 X10^3/uL (2.0-7.7); Basophil# 0.05 X10^3/uL; Basophil% 0.6 % (0-1); Eosinophil# 0.23 X10^3/uL; Eosinophils% 2.6 % (0-5); Hematocrit 36.2 % (37-47); Hemoglobin 10.9 g/dL (12.0-15.0); Lymphocyte # 2.86 X10^3/ul (0.83-4.51); Lymphocyte % 31.9 % (19-41); Mean Corp Hgb Conc 30.1 g/dL (32-36); Mean Corpuscular Hgb 25.8 pg (27.0-32.0); Mean Corpuscular Volume 85.8 fL (81-99); Mean Platelet Vol. 11.6 fl (6.2-12.0); Monocyte# 0.72 X10^3/uL; NRBC Flagged by Analyzer 0 % (0-5); Neutrophil # 5.08 X10^3/uL (2.7-7.7); Neutrophil % 56.6 % (47-70); Platelet Count 268 K/mm3 (150-450); RBC Distribution Width CV 17.5 % (11.6-14.6); RBC Distribution Width SD 55.2 fl (35.1-43.9); Red Blood Count 4.22 M/mm3 (4.2-5.4)
[2023-10-26 18:03] LABS: Vitamin B12 654 pg/mL (211-911); Vitamin D,25 Hydroxy 34.5 ng/mL
[2023-10-26 18:19] LABS: Hemoglobin A1c 8.2 % (3.8-5.6)
[2023-10-26 18:41] LABS: ALB/GLOB Ratio 0.6 RATIO (0.9-2.4); AST(SGOT) 18 U/L (15-37); Alanine Aminotransfer ALT/SGPT 17 U/L (13-56); Albumin, Serum 3.2 g/dL (3.2-5.0); Alkaline Phosphatase 109 U/L (45-117); Anion Gap 6 (5-15); BUN 18 mg/dL (7-18); BUN/Creat Ratio 17.6 RATIO (10-20); Calcium,Total 11.2 mg/dL (8.5-10.1); Chloride 101 mmol/L (98-107); Creatinine, Serum 1.02 mg/dL (0.55-1.02); EST Glomerular Filtration Rate 55 mL/min (>60); Est Glom Filt Rate - Afr Amer 67 mL/min (>60); Ferritin 99 ng/mL (8-252); Globulin 5.4 g/dL (2.2-4.2); Glucose 135 mg/dL (74-106); Potassium 4.5 mmol/L (3.5-5.1); Protein, Total 8.6 g/dL (6.4-8.2); Sodium Level 134 mmol/L (136-145); Thyroid Stim Hormone (TSH) 0.66 uIU/mL (0.358-3.74)
--- OUTSIDE RECORDS SUMMARY | 2023-10-26 23:10 | XMS RPT_ITS | CCD ---
Author Name Unknown Address [address] [place] [address] Organization [facility] Care Team Providers Care Sales Facilitator Name Role Phone Zuleika Heaton Unavailable Unavailable LEE ALAMO Unavailable Unavailable PROVIDER, UNKNOWN Unavailable Unavailable Zuleika Heaton Unavailable Unavailable Baljit LEARY, Ramone Noe Primary Care Provider [phone] Ramone Smiley MD Primary Care Provider Allergies Allergy Classification Reported Allergen(s) Allergy Type Date of Onset Reaction(s) Facility (2 sources) Adhesive Tape; Translations: [ADHESIVE TAPE] allergy to substance [facility] Work Phone: (2 sources) amoxicillin drug allergy 5 yeast infection [facility] Work Phone: (2 sources) cephalexin drug allergy 5 [facility] Work Phone: (2 sources) clopidogrel drug allergy 5 [facility] Work Phone: (5 sources) Cephalexin Drug Allergy 5 Rash [facility] Work Phone: (5 sources) clopidogrel Drug Allergy 1 Hives [facility] Work Phone: (5 sources) tape [Other] Propensity to adverse reactions 5 [facility] Medications Completed/Discontinued Medications Medication Drug Class(es) Dates Sig (Normalized) Sig (Original) 200 actuat albuterol 0.09 mg/actuat metered dose inhaler (7 sources) beta2-Adrenergic Agonist Start: 08-29-2015 VENTOLIN HFA 108 (90 Base) MCG/ACT AERS As needed - 90mcg/inh ALBUTEROL SULFATE [id number] Se Good MD Problems Active Problems Problem Classification Problem Date Documented Da te Episodic/Chronic Abdominal pain (5 sources) Abdominal pain; Translations: [Unspecified abdominal pain] 11-13-2006 Episodic Asthma (5 sources) Unspecified asthma, uncomplicated; Translations: [Asthma, unspecified type, unspecified] Onset: 03-04-2006 10-10-2013 Chronic Cancer of breast (10 sources) Malignant neoplasm of female breast; Translations: [Malignant neoplasm of unspecified site of unspecified female breast] Onset: 06-11-2005 06-11-2005 Chronic Deficiency and other anemia (8 sources) Iron deficiency anemia due to blood loss; Translations: [Iron deficiency anemia secondary to blood loss (chronic)] Onset: 02-06-2021 Chronic Deficiency and other anemia (3 sources) Anemia; Translations: [Anemia, unspecified] Onset: 04-11-2016 04-11-2016 Episodic Diabetes mellitus with complications (10 sources) Type 2 diabetes mellitus with other diabetic neurological complication; Translations: [Diabetes with neurological manifestations, type II or unspecified type, uncontrolled] Onset: 01-27-2006 10-10-2013 Chronic Diabetes mellitus without complication (7 sources) Diabetes mellitus; Translations: [Type 2 diabetes mellitus without complications] Onset: 07-18-2011 08-23-2015 Chronic Disorders of lipid metabolism (5 sources) Hyperlipidemia; Translations: [Hyperlipidemia, unspecified] Onset: 05-04-2008 05-04-2008 Chronic Essential hypertension (7 sources) Hypertensive disorder; Translations: [Benign essential hypertension] Onset: 06-09-2005 10-09-2015 Chronic Heart valve disorders (4 sources) Nonrheumatic aortic (valve) stenosis; Translations: [Aortic valve stenosis] Onset: 08-23-2015 04-11-2016 Chronic Other congenital anomalies (5 sources) Congenital anomaly of skin; Translations: [Other specified congenital malformations of skin] Onset: 11-21-2009 11-21-2009 Chronic Other gastrointestinal disorders (5 sources) Malabsorption - iron; Translations: [Intestinal malabsorption, unspecified] Onset: 02-06-2021 02-06-2021 Chronic Other nervous system disorders (5 sources) Carpal tunnel syndrome; Translations: [Carpal tunnel syndrome, unspecified upper limb] Onset: 07-13-2006 07-13-2006 Chronic Other nutritional; endocrine; and metabolic disorders (3 sources) Overweight; Translations: [Body mass index (BMI) 34.0-34.9, adult] Onset: 08-29-2015 01-26-2017 Chronic Other nutritional; endocrine; and metabolic disorders (1 source) Body mass index (BMI) 34.0-34.9, adult; Translations: [Body mass index (BMI) 34.0-34.9, adult] Onset: 08-29-2015 08-29-2015 Chronic Other upper respiratory disease (5 sources) Allergic rhinitis; Translations: [Allergic rhinitis, unspecified] Onset: 06-09-2005 06-09-2005 Chronic Peripheral and visceral atherosclerosis (10 sources) Peripheral vascular disease, unspecified; Translations: [Peripheral vascular disease, unspecified] Onset: 05-28-2011 05-28-2011 Chronic Skin and subcutaneous tissue infections (2 sources) Cutaneous abscess of right hand; Translations: [Cutaneous abscess of right hand] Onset: 01-18-2018 Episodic Substance-related disorders (5 sources) Tobacco user; Translations: [Nicotine dependence, unspecified, uncomplicated] Onset: 12-27-2008 12-27-2008 Chronic Thyroid disorders (5 sources) Toxic multinodular goiter; Translations: [Thyrotoxicosis with toxic multinodular goiter without thyrotoxic crisis or storm] Onset: 04-20-2007 04-20-2007 Chronic Past or Other Problems Problem Classification Problem Date Documented Da te Episodic/Chronic Acquired foot deformities (5 sources) Talipes planus; Translations: [Flat foot [pes planus] (acquired), unspecified foot] Onset: 11-10-2012 11-10-2012 Episodic Acute posthemorrhagic anemia (5 sources) Acute posthemorrhagic anemia; Translations: [Acute posthemorrhagic anemia] Onset: 01-10-2020 01-10-2020 Episodic Allergic reactions (5 sources) Contact dermatitis; Translations: [Unspecified contact dermatitis, unspecified cause] Onset: 03-09-2007 03-09-2007 Episodic Fluid and electrolyte disorders (5 sources) Hypo-osmolality and or hyponatremia; Translations: [Hypo-osmolality and hyponatremia] Onset: 04-20-2007 04-20-2007 Episodic Mycoses (5 sources) Onychomycosis due to dermatophyte ; Translations: [Tinea unguium] Onset: 07-18-2011 07-18-2011 Episodic Nonspecific chest pain (2 sources) Tight chest; Translations: [Other chest pain] Onset: 08-23-2015 08-23-2015 Episodic Other diseases of veins and lymphatics (5 sources) Peripheral venous insufficiency; Translations: [Venous insufficiency (chronic) (peripheral)] Onset: 03-09-2007 03-09-2007 Episodic Other gastrointestinal disorders (5 sources) Constipation; Translations: [Constipation, unspecified] Onset: 07-31-2005 07-31-2005 Episodic Other lower respiratory disease (2 sources) Dyspnea; Translations: [Shortness of breath] Onset: 08-23-2015 08-23-2015 Episodic Other screening for suspected conditions (not mental disorders or infectious disease) (10 sources) Mammography abnormal; Translations: [Other abnormal and inconclusive findings on diagnostic imaging of breast] Onset: 02-23-2008 02-23-2008 Episodic Other skin disorders (5 sources) Sebaceous cyst of skin; Translations: [Sebaceous cyst] Onset: 03-31-2006 03-31-2006 Episodic Other skin disorders (5 sources) Disorder of sebaceous gland; Translations: [Other specified follicular disorders] Onset: 03-09-2007 03-09-2007 Episodic Spondylosis; intervertebral disc disorders; other back problems (5 sources) Spinal stenosis of lumbar region; Translations: [Spinal stenosis, lumbar region without neurogenic claudication] Onset: 01-11-2002 12-25-2003 Episodic Unclassified (2 sources) FH: Hypertension; Translations: [Family history of ischemic heart disease and other diseases of the circulatory system] 08-23-2015 Episodic Varicose veins of lower extremity (5 sources) Varicose vein of leg with phlebitis; Translations: [Varicose veins of unspecified lower extremity with inflammation] Onset: 03-09-2007 03-09-2007 Episodic Results Test Name Value Interpretation Reference Range Facil ity Vital Signs Date Time Vital Sign Value Performing Clinician Luis rocha 05-07-2022 13:26-0400 Body height 158.1 cm 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 APRN.CNP Work Phone: [facility] 05-07-2022 13:26-0400 Body temperature 97.2 [degF] 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 APRN.CNP Work Phone: [facility] 05-07-2022 13:26-0400 Body weight 73.71 kg 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 IP LITIGATION ASSOCIATE.BENZENE OPERATOR Work Phone: [facility] 05-07-2022 13:26-0400 Diastolic blood pressure 68 mm[Hg] Lashonda Javedenter IP LITIGATION ASSOCIATE.BENZENE OPERATOR Work Phone: [facility] 05-07-2022 13:26-0400 Heart rate 66 /min 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 IP LITIGATION ASSOCIATE.BENZENE OPERATOR Work Phone: [facility] 05-07-2022 13:26-0400 Systolic blood pressure 160 mm[Hg] 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 IP LITIGATION ASSOCIATE.BENZENE OPERATOR Work Phone: [facility] 01-13-2017 14:21-0400 BMI (Body Mass Index) 30.93 kg/m2 [facility] Work Phone: 01-13-2017 14:21-0400 Body Temperature 98.2 [degF] [facility] Work Phone: 01-13-2017 14:21-0400 Body weight 79.2 kg Zuleika Heaton [facility] Work Phone: 01-13-2017 14:21-0400 BP Diastolic 76 mm[Hg] Zuleika Heaton [facility] Work Phone: 01-13-2017 14:21-0400 BP Systolic 128 mm[Hg] [facility] Work Phone: 01-13-2017 14:21-0400 Height 160.02 cm [facility] Work Phone: 01-13-2017 14:21-0400 Pulse (Heart Rate) 70 /min [facility] Work Phone: 01-13-2017 14:21-0400 Pulse Oximetry 96 % Zuleika Heaton [facility] Work Phone: 01-13-2017 14:21-0400 Respiratory Rate 16 /min [facility] Work Phone: 01-13-2017 14:21-0400 Weight 79.2 kg [facility] Work Phone: 10-09-2015 11:00-0500 BSA (Body Surface Area) 1.91 m2 [facility] Work Phone: 08-29-2015 11:19-0500 Heart rate 109 /min [facility] Work Phone: Encounters Encounter Date Encounter Type Care Provider Facility Start: 05-07-2022 End: 05-07-2022 ambulatory 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 IP LITIGATION ASSOCIATE.BENZENE OPERATOR Work Phone: Hematology/Oncology Procedures Date Procedure Procedure Detail Performing Clinician Start: 01-13-2017 End: 01-13-2017 Documentation of current medications Zuleika Heaton Start: 10-09-2015 End: 04-02-2016 Follow Up Appt 6 months Connor Rausch Start: 10-09-2015 End: 04-02-2016 MMM Se Good MD Start: 08-29-2015 End: 08-29-2015 [employer] Se Good MD Start: 08-29-2015 End: 08-29-2015 Electrocardiogram, complete Se Lara i, MD Start: 08-29-2015 End: 08-29-2015 Follow Up Appt 6 weeks Se Good MD Plan of Treatment Date Care Activity Detail Author Start: 05-07-2022 BP CONTROLLED (<130/80) BP CONTROLLE D (<130/80) [facility] Start: 05-01-2022 Influenza vaccination [facility] Start: 03-28-2022 COVID-19 VACCINE (4 - Booster for Moderna series) COVID-19 VACCINE (4 - Booster for Moderna series) [facility] Start: 09-29-2021 End: 09-29-2022 MONOCLONAL PROTEIN, SERUM (BLOOD) MONOCLONAL PROTEIN, SERUM (BLOOD) Lab Routine Anemia, unspecified type Expected: 09/29/2021, Expires: 09/29/2022 [facility] Work Phone: Immunizations Immunization Date Immunization Notes Care Provider Larissa cuadra 07-12-2012 influenza virus vacc ine, unspecified formulation Joseph Rolle DO Work Phone: [facility] 02-13-2012 pneumococcal polysaccharide vaccine, 23 valent Joseph Rolle DO Work Phone: [facility] 12-24-2011 zoster vaccine, live Joseph chatterjee DO Work Phone: [facility] 06-02-2011 influenza virus vacc ine, unspecified formulation Joseph Rolle DO Work Phone: [facility] 08-09-2010 influenza virus vacc ine, unspecified formulation Joseph Rolle DO Work Phone: [facility] 05-30-2009 influenza virus vacc ine, unspecified formulation Joseph Rolle DO Work Phone: [facility] 09-07-2008 influenza virus vacc ine, unspecified formulation Joseph Rolle DO Work Phone: [facility] Work Phone: 05-04-2008 tetanus toxoid, redu octavio diphtheria toxoid, and acellular pertussis vaccine, adsorbed Joseph Rolle DO Work Phone: [facility] Work Phone: 06-28-2007 influenza virus vacc ine, unspecified formulation Joseph Rolle DO Work Phone: [facility] Work Phone: 08-31-2005 pneumococcal polysaccharide vaccine, 23 valent Joseph Rolle DO Work Phone: [facility] Work Phone: Payers Date Payer Category Payer Medicare HU[employer]NA MEDICARE HU[employer]NA MEDICARE PPO [id number] 2017-Present [phone] [place] [address] PPO [id number] 2017 Medicare HUMANA MEDICARE HU[employer]NA MEDICARE PPO [id number] 2017-Present [phone] [address] [address] [place] [address] PPO [id number] Private Health Insurance Social History Date Type Detail Facility Start: 02-03-2012 End: 03-22-2012 Tobacco smoking status NHIS Ex-smoker [facility] End: 01-30-2012 History of tobacco use Current smoker [facility] End: 01-30-2012 History of tobacco use Cigarette Smoker [facility] Start: 02-03-2012 End: 03-22-2012 Cigarettes smoked current (pack per day) - Reported 0.5 [facility] Start: 02-03-2012 End: 03-22-2012 Tobacco use and exposure Smokeless tobacco non-user [facility] Start: 05-07-2021 End: 05-07-2022 Alcohol intake Current non-drinker of alcohol (finding) [facility] Start: 1945 Sex Assigned At Not on file [facility] Start: 10-05-2021 End: 11-04-2021 Exposure to SARS-CoV-2 (event) Not sure [facility] Progress note 05-07-2022 Note Date & Type Note Facility 05-07-2022 Note HNO ID: [id number] Author: 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 APRN.BENZENE OPERATOR Service: ? Author Type: Nurse Practitioner Type: Progress Notes Filed: 05/07/2022 2:25 PM Note Text: Chief Complaint Patient presents with: Established Patient HPI: Olga Donaldson is a 77 year old female who presents here today for follow up CHIKA. Per Dr. Rolle's pevious note: H/o microcytic anemia, chronic kidney disease stage III, aortic stenosis, COPD, venous thromboembolism, hypertension, type 2 diabetes, asthma, hyperlipidemia, goiter, GERD, diabetic retinopathy, lumbar spinal stenosis, colon polyp (removed July 2018; tubular adenoma), intermittent hypercalcemia. and breast cancer. She received adjuvant chemotherapy for a T2 N0 MX, hormone-receptor negative, HER-2 overexpressed breast cancer. She completed paclitaxel 175 mg/m2 given on an every 2-week basis for 4 cycles ([id number]). Completed a year of trastuzumab 06/16/06. Referred back or anemia. Admitted to [facility] 12/02/2019 for chest pain with ambulation. Initial hemoglobin was 5.7 g/dL. On repeat 2 hours later is 5.1 g/dL. She received a 2 unit red blood cell transfusion with increasing hemoglobin 7.1 g/dL. She received another blood transfusion prior to discharge On 2020. At that time hemoglobin was 9.7 g/dL. Other labs of note include white count of 11,000. Differential mild neutrophilia at 8300. Hematocrit 25.4%, MCV 74.9, MCH 22.7. Platelet count 274. Serum creatinine was 0.81 mg/dL. Estimated GFR was 88 cc/m. Calcium 10.7 the day of discharge. TSH was suppressed at 0.11 and the free T3 was low at 2.1. Free T4 1 0.01. Ferritin was 11 ng per mL on admission and 31 ng per mL the day of discharge on 01/02. Most recent EGD was July 2018 during an admission for microcytic anemia (she received a 2 unit red blood cell transfusion then as well). Patient was observed to have moderately congested mucosa in the gastric antrum. Biopsy was taken from the lesser curvature of the gastric antrum. Otherwise exam was without abnormality. On colonoscopy done the same time, patient was observed to have a polyp in the cecum. It was semi-pedunculated. It was removed with a hot snare. The retrieval and resection were complete. Pathology: MICROSCOPIC DIAGNOSIS A. Antral lesion, biopsy: A fragment of gastric mucosa with extensive congestion and reactive fibrosis. See comment. B. Cecal polyp, biopsy: Tubular adenoma. COMMENT Immunohistochemistry for Helicobacter pylori can be performed if clinically indicated. Please notify the Laboratory if it is needed. Pt. received iron sucrose March 2021. No new concerns today. Appetite: Too good. Energy level: Good. Denies fevers or recent illness. 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 Past medical history, appointments, medications, allergies reviewed. No changes. EXAM: BP 160/68 Pulse 66 Temp 36.2 ?C (97.2 ?F) (Temporal) Ht 158.1 cm (5' 2.25 ) Wt 73.7 kg (162 lb 8 oz) BMI 29.48 kg/m? APPEARANCE Well appearing, alert, in no acute distress, well-hydrated, well nourished. HEART RRR with normal S1 and S2, no murmurs LUNG clear to auscultation LYMPH NODES No cervical lymphadenopathy, No supraclavicular lymphadenopathy, and No axillary lymphadenopathy. ABDOMEN bowel sounds normoactive, soft, non-tender, non-distended, without organomegaly or palpable masses, no tenderness to palpation EXTREMITIES No edema NEURO Awake, alert and oriented x 3, uses a cane, and No involuntary motions. SKIN Skin color, texture, turgor normal, no suspicious rashes or lesions LABS: Component Latest Ref Rng AND Units 11/04/2021 02/03/2022 05/07/2022 WBC 3.70 - 11.00 k/uL 6.99 7.17 6.84 RBC 3.90 - 5.20 m/uL 4.47 4.44 4.21 Hemoglobin 11.5 - 15.5 g/dL 12.9 12.8 12.0 Hematocrit 36.0 - 46.0 % 40.4 39.7 37.2 MCV 80.0 - 100.0 fL 90.4 89.4 88.4 MCH 26.0 - 34.0 pg 28.9 28.8 28.5 MCHC 30.5 - 36.0 g/dL 31.9 32.2 32.3 RDW-CV 11.5 - 15.0 % 13.3 14.3 14.6 Platelet Count 150 - 400 k/uL 246 265 246 MPV 9.0 - 12.7 fL 10.1 10.3 10.0 Neut% % 48.7 57.2 57.9 Abs Neut (ANC) 1.45 - 7.50 k/uL 3.40 4.11 3.96 Lymph% % 38.6 32.1 29.7 Abs Lymph 1.00 - 4.00 k/uL 2.70 2.30 2.03 Stone% % 7.0 6.6 6.9 Abs Stone <0.87 k/uL 0.49 0.47 0.47 Eosin% % 4.9 3.2 4.7 Abs Eosin <0.46 k/uL 0.34 0.23 0.32 Baso% % 0.7 0.6 0.7 Abs Baso <0.11 k/uL 0.05 0.04 0.05 Immature Gran % % 0.1 0.3 0.1 IMMATURE GRANS (ABS) <0.10 k/uL <0.03 <0.03 <0.03 NRBC /100 WBC 0.0 0.0 0.0 Absolute nRBC <0.01 k/uL <0.01 <0.01 <0.01 DTYPE Auto Auto Auto Iron studies: Pending ASSESSMENT/PLAN: 1. Iron deficiency anemia due to chronic blood loss - ICD9: 280.0, (more content not included)... [facility] History of Present illness Narrative 05-07-2022 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 APRN.[facility] - 05/07/2022 1:33 PM EDT Note Date & Type Note Facility 05-07-2022 History of Presen t illness Narrative Chief Complaint Patient presents with: Established Patient HPI: Olga Donaldson is a 77 year old female who presents here today for follow up CHIKA. Per Dr. Rolle's pevious note: H/o microcytic anemia, chronic kidney disease stage III, aortic stenosis, COPD, venous thromboembolism, hypertension, type 2 diabetes, asthma, hyperlipidemia, goiter, GERD, diabetic retinopathy, lumbar spinal stenosis, colon polyp (removed July 2018; tubular adenoma), intermittent hypercalcemia. and breast cancer. She received adjuvant chemotherapy for a T2 N0 MX, hormone-receptor negative, HER-2 overexpressed breast cancer. She completed paclitaxel 175 mg/m2 given on an every 2-week basis for 4 cycles ([id number]). Completed a year of trastuzumab 06/16/06. Referred back or anemia. Admitted to [facility] 12/02/2019 for chest pain with ambulation. Initial hemoglobin was 5.7 g/dL. On repeat 2 hours later is 5.1 g/dL. She received a 2 unit red blood cell transfusion with increasing hemoglobin 7.1 g/dL. She received another blood transfusion prior to discharge On 2020. At that time hemoglobin was 9.7 g/dL. Other labs of note include white count of 11,000. Differential mild neutrophilia at 8300. Hematocrit 25.4%, MCV 74.9, MCH 22.7. Platelet count 274. Serum creatinine was 0.81 mg/dL. Estimated GFR was 88 cc/m. Calcium 10.7 the day of discharge. TSH was suppressed at 0.11 and the free T3 was low at 2.1. Free T4 1 0.01. Ferritin was 11 ng per mL on admission and 31 ng per mL the day of discharge on 01/02. Most recent EGD was July 2018 during an admission for microcytic anemia (she received a 2 unit red blood cell transfusion then as well). Patient was observed to have moderately congested mucosa in the gastric antrum. Biopsy was taken from the lesser curvature of the gastric antrum. Otherwise exam was without abnormality. On colonoscopy done the same time, patient was observed to have a polyp in the cecum. It was semi-pedunculated. It was removed with a hot snare. The retrieval and resection were complete. Pathology: MICROSCOPIC DIAGNOSIS A. Antral lesion, biopsy: A fragment of gastric mucosa with extensive congestion and reactive fibrosis. See comment. B. Cecal polyp, biopsy: Tubular adenoma. COMMENT Immunohistochemistry for Helicobacter pylori can be performed if clinically indicated. Please notify the Laboratory if it is needed. Pt. received iron sucrose March 2021. No new concerns today. Appetite: Too good. Energy level: Good. Denies fevers or recent illness. 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 Past medical history, appointments, medications, allergies reviewed. No changes. EXAM: BP 160/68 Pulse 66 Temp 36.2 C (97.2 F) (Temporal) Ht 158.1 cm (5' 2.25 ) Wt 73.7 kg (162 lb 8 oz) BMI 29.48 kg/m APPEARANCE Well appearing, alert, in no acute distress, well-hydrated, well nourished. HEART RRR with normal S1 and S2, no murmurs LUNG clear to auscultation LYMPH NODES No cervical lymphadenopathy, No supraclavicular lymphadenopathy, and No axillary lymphadenopathy. ABDOMEN bowel sounds normoactive, soft, non-tender, non-distended, without organomegaly or palpable masses, no tenderness to palpation EXTREMITIES No edema NEURO Awake, alert and oriented x 3, uses a cane, and No involuntary motions. SKIN Skin color, texture, turgor normal, no suspicious rashes or lesions LABS: Component Latest Ref Rng & Units 11/04/2021 02/03/2022 05/07/2022 WBC 3.70 - 11.00 k/uL 6.99 7.17 6.84 RBC 3.90 - 5.20 m/uL 4.47 4.44 4.21 Hemoglobin 11.5 - 15.5 g/dL 12.9 12.8 12.0 Hematocrit 36.0 - 46.0 % 40.4 39.7 37.2 MCV 80.0 - 100.0 fL 90.4 89.4 88.4 MCH 26.0 - 34.0 pg 28.9 28.8 28.5 MCHC 30.5 - 36.0 g/dL 31.9 32.2 32.3 RDW-CV 11.5 - 15.0 % 13.3 14.3 14.6 Platelet Count 150 - 400 k/uL 246 265 246 MPV 9.0 - 12.7 fL 10.1 10.3 10.0 Neut% % 48.7 57.2 57.9 Abs Neut (ANC) 1.45 - 7.50 k/uL 3.40 4.11 3.96 Lymph% % 38.6 32.1 29.7 Abs Lymph 1.00 - 4.00 k/uL 2.70 2.30 2.03 Stone% % 7.0 6.6 6.9 Abs Stone <0.87 k/uL 0.49 0.47 0.47 Eosin% % 4.9 3.2 4.7 Abs Eosin <0.46 k/uL 0.34 0.23 0.32 Baso% % 0.7 0.6 0.7 Abs Baso <0.11 k/uL 0.05 0.04 0.05 Immature Gran % % 0.1 0.3 0.1 IMMATURE GRANS (ABS) <0.10 k/uL <0.03 <0.03 <0.03 NRBC /100 WBC 0.0 0.0 0.0 Absolute nRBC <0.01 k/uL <0.01 <0.01 <0.01 DTYPE Auto Auto Auto Iron studies: Pending ASSESSMENT/PLAN: 1. Iron deficiency anemia due to chronic blood loss - ICD9: 280.0, ICD10: D50.0 - No concerning findings on exam. - Reviewed CBC with pt. - Iron studies pending. - CBC/iron studies every 3 months. - Follow up in one year with CBC/iron studies. - Pt. aware to call office with any questions/concerns. The patient indicates understanding of these issues and agrees with the plan. All documentation from previous visit of 05/07/21-Dr. Rolle was copied and pasted, documentation has been reviewed and edited as necessary for today's visit. 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 APRN.BENZENE OPERATOR documented in this encounter [facility] Note 02-10-2022 Telephone Encounter - Stacie Varner LPN - 02/10/2022 8:33 AM EDTTelephone Encounter - Joseph Rolle DO - 02/10/2022 6:20 AM EDT Note Date & Type Note Facility 02-10-2022 Miscellaneous Notes Pt called and notified, pt voices understanding. Stacie Varner LPN Can let her know CBC and iron levels doing well. Follow up as scheduled. Joseph Rolle DO documented in this encounter [facility] Note 09-30-2021 Telephone Encounter - Joseph Rolle DO - 09/30/2021 12:13 PM ESTTelephone Encounter - Jocelyn Abernathy - 09/30/2021 9:20 AM ESTTelephone Encounter - Joseph Rolle DO - 09/29/2021 8:45 AM EST Note Date & Type Note Facility 09-30-2021 Miscellaneous Notes Formattin g of this note might be different from the original. Okay to wait until October. Joseph Rolle DO PT ALREADY SCHEDULED FOR LABS IN EARLY OCTOBER DOES THIS NEED PUSHED BACK A MONTH OR OKAY TO LEAVE IT? Jocelyn Abernathy Can let her know I received lab results from Dr. Smiley's office from last fall. I'd like her to get 3 month follow labs here to reassess her history of anemia and need for parenteral iron. Orders filed. Joseph Rolle DO documented in this encounter [facility] Note 03-14-2021 Telephone Encounter - Marina Mathis - 03/14/2021 1:12 PM EDTTelephone Encounter - Joseph Rolle DO - 03/14/2021 12:31 PM EDTTelephone Encounter - Marina Mathis - 03/14/2021 10:07 AM EDT Note Date & Type Note Facility 03-14-2021 Miscellaneous Notes Faxed referral over. Marina Mathis She seems to have focal GI bleeding. Therefore I would recommend repeat colonoscopy. I do not think insurance would deny at this time based on her clinical course and ongoing iron deficiency. She is on aspirin as well. Please make a referral to Dr. Micheal Carmen for the colonoscopy. Joseph Rolle DO Scheduled. Marina Mathis Patient has not had another colonoscopy since 2016, insurance would not approve. Patient is aware of all information. PSR's- please schedule a lab appointment for 03/21/2021 @ 2:30, no need to notify pt. Patient does not drive and will complete lab work and sisal picker stool cards 03/21/2021, same day as iron infusion. She will also schedule 5 more doses of iron then. Christi Hopkins LPN Can let her know her iron levels and Hgb have improved albeit not as much as I would have expected from the doses of iron she's had so far. Advise stool testing for occult bleeding and get ferritin level (wasn't done as part of iron studies). She had EGD in 2019. Please find out when last colonoscopy was (had one 05/2016, but may have had one more recently at [facility]). Add on for 5 more doses of iron sucrose and repeat CBC/Iron studies about a month after completing. Joseph Rolle DO documented in this encounter [facility] Evaluation note Note Date & Type Note Facility documented in this encounter [facility] Evaluation note Note Date & Type Note Facility documented in this encounter [facility] Evaluation note Note Date & Type Note Facility documented in this encounter [facility] Evaluation note Note Date & Type Note Facility documented in this encounter [facility] Summary Purpose Family History No Family History Records FoundNo Family History Records Found Advance Directives No Advanced Directives Records FoundDocuments on File Type Date Recorded Patient Chief Port Director Expl anation Advance Directive(s) 05/12/2016 10:06 AM Advance Directive(s) 04/30/2016 11:10 AM Advance Directive(s) 02/19/2016 5:55 AM Advance Directive(s) 02/14/2016 3:07 PM Additional Source Comments INFORMATION SOURCE (unrecogn ized section and content) DATE CREATED AUTHOR AUTHOR'S ORGANIZ ATION 05/08/2022 [facility] Source Comments (unrecognize d section and content) In the event this informatio n is protected by the Federal Confidentiality of Alcohol and Drug Abuse Patient Records regulations: The Federal rules restrict any use of the information to criminally investigate or prosecute any alcohol or drug abuse patient.[facility] the event this information is protected by the Federal Confidentiality of Alcohol and Drug Abuse Patient Records regulations: The Federal rules restrict any use of the information to criminally investigate or prosecute any alcohol or drug abuse patient.[facility] FoundationIn the event this information is protected by the Federal Confidentiality of Alcohol and Drug Abuse Patient Records regulations: The Federal rules restrict any use of the information to criminally investigate or prosecute any alcohol or drug abuse patient.[facility] FoundationIn the event this information is protected by the Federal Confidentiality of Alcohol and Drug Abuse Patient Records regulations: The Federal rules restrict any use of the information to criminally investigate or prosecute any alcohol or drug abuse patient.[facility] FoundationIn the event this information is protected by the Federal Confidentiality of Alcohol and Drug Abuse Patient Records regulations: The Federal rules restrict any use of the information to criminally investigate or prosecute any alcohol or drug abuse patient.[facility] Care Teams (unrecognized sec tion and content) Sales Facilitator Relationship Specialty Start Date End Date Ramone Smiley MD PCP - General Family Practice 08/16/15 Sales Facilitator Relationship Specialty Start Date End Date Ramone Smiley MD PCP - General Family Practice 08/16/15 Sales Facilitator Relationship Specialty Start Date End Date Ramone Smiley MD PCP - General Family Practice 08/16/15 Sales Facilitator Relationship Specialty Start Date End Date Ramone Smiley MD PCP - General Family Practice 08/16/15 Reason for Visit (unrecogniz ed section and content) Reason Comments Results Reason Comments Results Follow Up Reason Comments Established Patient FOR RECORDS PERTAINING TO PATIENTS WHO ARE OR HAVE BEEN ENROLLED IN A CHEMICAL DEPENDENCY/SUBSTANCEABUSE PROGRAM, SOME INFORMATION MAY BE OMITTED. This clinical summary was aggregated from multiple sources. Caution should be exercised in using it in the provision of clinical care. This summary normalizes information from multiple sources, and as a consequence, information in this document may materially change the coding, format and clinical context of patient data. In addition, data may be omitted in some cases. CLINICAL DECISIONS SHOULD BE BASED ON THE PRIMARY CLINICAL RECORDS. [facility] [employer] [facility]. provides no warranty or guarantee of the accuracy or completeness of information in this document.
== END | disposition home or self-care (01) ==
LOC: MFPLAB 14:41
PROVIDERS: PCP Family Medicine; Visit Provider Family Medicine
DX: E11.49 Type 2 diabetes mellitus with other diabetic neurological complication (principal); J44.9 Chronic obstructive pulmonary disease, unspecified; E11.40 Type 2 diabetes mellitus with diabetic neuropathy, unspecified; I73.9 Peripheral vascular disease, unspecified; R68.89 Other general symptoms and signs
CPT/HCPCS: 36415; 80053; 82306; 82607; 82728; 82746; 83036; 84443; 85025

== ENCOUNTER 2023-12-27 22:05 | Inpatient (IN) | payer MEDICARE, SELFPAY ==
[2023-12-27 22:06] VITALS: BP 173/72; PULSE 82; RESP 16; TEMP 36.7; O2SAT 98; BMI 29.5
--- NOTE | 2023-12-27 22:19 | EKG12_ITS ---
Test Reason : PRE-OP Blood Pressure : / mmHG Vent. Rate : 079 BPM Atrial Rate : 079 BPM P-R Int : 170 ms QRS Dur : 072 ms QT Int : 372 ms P-R-T Axes : 054 028 052 degrees QTc Int : 426 ms Normal sinus rhythm Normal ECG Confirmed by KELSEA LEARY, ANN ([id number]), commercial production editor MIKE MATTHEW ([id number]) on 12/28/2023 9:48:16 AM Referred By: Confirmed By:ANN ENAMORADO MD
--- NOTE | 2023-12-27 22:20 | ED.VIS.FALL ---
HPI HPI - Fall History of Present Illness Chief Complaint: Fall Informant: patient Occured/Mechanism Occurred: Today Narrative Narrative: Patient presents via EMS after a fall with left hip pain. She states she was getting up off the couch to go cath herself. She got her walker turned but lost her balance and fell landing on her left hip. She complains of left hip pain with shortening and external rotation noted. She denies striking her head. She is on aspirin but no other form of anticoagulant. PFSH PFSH Medical History Anemia Anxiety Aortic stenosis Asthma Carpal tunnel syndrome of right wrist Cellulitis and abscess of finger, unspecified Chronic idiopathic constipation Chronic renal failure, stage 3 (moderate) Colon polyp COPD (chronic obstructive pulmonary disease) Coronary artery disease Depression Diabetes Diabetic retinopathy Foraminal stenosis of lumbar region Former smoker GERD (gastroesophageal reflux disease) Goiter, nontoxic, multinodular History of malignant neoplasm of breast Hx of venous thrombosis and embolism Hypercalcemia Hyperlipidemia Hypertension Hypokalemia Hyponatremia Hypophosphatemia Iron deficiency anemia Irregular heart beat Leg weakness, bilateral Lumbar spinal stenosis Microcytic anemia Multiple thyroid nodules Neurogenic bladder Paronychia of left index finger Peripheral artery disease Polypharmacy Pruritus Retinopathy Rhinitis Strain of right rotator cuff capsule Thyroid goiter Type 2 diabetes mellitus Urinary retention with incomplete bladder emptying Urine retention UTI (urinary tract infection) Vaginal cyst Vitamin D deficiency Home Medications aspirin 81 mg chewable tablet 81 mg PO DAILY [facility] 01/21/16 [History Last Taken 08/12/23] albuterol sulfate 90 mcg/actuation aerosol inhaler 2 puff inhalation Q4H PRN Sob &/Or Wheezing 08/16/18 [History Last Taken 07/10/20 06:30] diltiazem HCl 180 mg tablet,extended release 24 hr 180 mg PO DAILY BLOOD PRESSURE 08/16/18 [History Last Taken 08/12/23] magnesium oxide 400 mg (241.3 mg magnesium) tablet 400 mg PO BID SUPPLEMENT 08/16/18 [History Last Taken 08/12/23] metoprolol tartrate 25 mg tablet 25 mg PO BID BLOOD PRESSURE 08/16/18 [History Last Taken 08/12/23] pantoprazole 40 mg tablet,delayed release 40 mg PO QHS ACID REFLUX 12/02/19 [History Last Taken 08/12/23] empagliflozin 10 mg tablet (Jardiance) 10 mg PO DAILY DIABETES 10/18/20 [History Last Taken 08/12/23] sitagliptin phosphate 50 mg tablet (Januvia) 50 mg PO DAILY DIABETES 10/18/20 [History Last Taken 08/12/23] budesonide-formoterol HFA 160 mcg-4.5 mcg/actuation aerosol inhaler (Symbicort) 2 puff inhalation BID 12/06/21 [History Last Taken 08/12/23] multivitamin 1 tab PO DAILY 12/06/21 [History Last Taken 08/12/23] pravastatin 20 mg tablet 20 mg PO DAILY CHOLESTEROL 12/06/21 [History Last Taken 08/12/23] ascorbic acid (vitamin C) 250 mg tablet (Vitamin C) 250 mg PO DAILY SUPPLEMENT 08/13/23 [History Last Taken 08/12/23] azelastine 137 mcg (0.1 %) nasal spray aerosol 137 mcg intranasal BID RUNNY NOSE 08/13/23 [History Last Taken 08/12/23] cod liver oil 1 cap PO DAILY SUPPLEMENT 08/13/23 [History Last Taken 08/12/23] dulaglutide 0.75 mg/0.5 mL subcutaneous pen injector (Trulicity) 0.75 mg subcut MO DIABETES 08/13/23 [History Last Taken 08/10/23] fiber 1 cap PO DAILY CONSTIPATION 08/13/23 [History Last Taken 08/12/23] gabapentin 100 mg capsule 100 mg PO QHS NERVE PAIN 08/13/23 [History Last Taken 08/12/23] roflumilast 500 mcg tablet 500 mcg PO DAILY COPD 08/13/23 [History Last Taken 08/12/23] insulin aspart U-100 100 unit/mL subcutaneous solution 5 unit (0.05 mL) subcut BIDCM DIABETES #10 mL 08/17/23 [Rx Last Taken 08/12/23] insulin detemir U-100 100 unit/mL (3 mL) subcutaneous pen 20 unit (0.2 mL) subcut BIDCM DIABETES #15 mL 08/17/23 [Rx Last Taken 08/12/23] Allergy/AdvReac Type Severity Reaction Status Date / Time adhesive tape [tape] Allergy NEEDS Verified 12/27/23 22:08 FOLLOW-UP amoxicillin Allergy YEAST Verified 12/27/23 22:08 INFECTION cephalexin monohydrate Allergy Rash Verified 12/27/23 22:08 [From Keflex] clopidogrel bisulfate Allergy Other Verified 12/27/23 22:08 [From Plavix] Family History Daughter Breast cancer Father Hypertension Sister Cancer Kidney disease Mother Pancreatic cancer Surgical History H/O dilation and curettage (~07/10/20) History of Achilles tendon repair History of lumpectomy of left breast Retinopathy S/P fine needle aspiration (~10/2020) Social History household members: spouse Smoking Status: Former smoker alcohol intake: never substance use type: does not use caffeine: Yes what type of physical activity do you participate in: none seatbelt use: always do you feel safe at home: Yes additional social history: [employer]- retired ROS ROS ED Constitutional Constitutional ED: Denies chills or fever(s) Eyes Eyes: Denies discharge from eye(s) ENT ENT ED: Denies discharge from eye(s), rhinorrhea or sore throat Cardiovascular Cardiovascular: Denies chest pain or palpitations Respiratory/Chest Respiratory/Chest: Denies cough or dyspnea Gastrointestinal Gastrointestinal: Denies abdominal pain, nausea or vomiting Genitourinary Genitourinary ED: Reports other Details: Patient self caths at baseline. Musculoskeletal Musculoskeletal: Reports extremity pain; Denies back pain Integumentary Denies Abrasions or rash Neurologic Neurologic: Denies headache(s) or weakness Allergic/Immunologic Allergic/Immunologic ED: Denies lip swelling or urticaria EXAM Physical Exam Const Vital Signs: 12/27/23 22:06 12/27/23 22:24 Temperature 98.1 F Temperature Source Temporal Pulse Rate 82 Respiratory Rate 16 Respiratory Effort Normal Non-Labored Respiratory Depth Normal Respiratory Pattern Normal Blood Pressure 173/72 H Blood Pressure Mean 105 Pulse Ox 98 Oxygen Delivery Method Room Air Room Air Positive well nourished and well developed General Appearance ED: well developed HEENT Reports normocephalic Eyes EOMs intact bilaterally Neck full ROM Chest Wall inspection of chest normal and palpation of chest normal Resp normal respiratory effort and clear to auscultation bilaterally Cardio regular rate and regular rhythm GI non-tender Palpation: soft Extremity Extremity Narrative: Left lower extremity held in slight external rotation and is shortened. Tenderness of the left hip. Good sensation distally with strong pulses. Patient can wiggle toes. Neuro oriented x3 and moves all extremities Psych mental status grossly normal MDM MDM MDM Narrative Medical decision making narrative: Patient placed on desk monitor. Patient given morphine and Zofran for pain and nausea. Labwork obtained to evaluate for leukocytosis, anemia, and electrolyte derangement. X-rays of the chest as well as pelvis and left hip obtained given suspicion for left hip fracture. EKG will be obtained for preop clearance. History & Record Review Discussion w/independent historian: Patient Lab Data Attestation: I reviewed the patient's lab results. Labs: Laboratory Results - last 24 hr 12/27/23 22:35 WBC 8.2 RBC 4.67 Hgb 12.4 Hct 39.8 MCV 85.2 MCH 26.6 L MCHC 31.2 L RDW Std Deviation 47.0 H RDW Coeff of Vijay 15.5 H Plt Count 237 MPV 11.5 Immature Gran % (Auto) 1.000 H Neut % (Auto) 51.7 Lymph % (Auto) 37.1 Rains % (Auto) 6.6 Eos % (Auto) 3.1 Baso % (Auto) 0.5 Absolute Neuts (auto) 4.2 Absolute Lymphs (auto) 3.04 Nucleated RBC % 0 Sodium 136 Potassium 4.2 Chloride 103 Carbon Dioxide 29.0 Anion Gap 4 L BUN 22 H Creatinine 1.19 H Estim Creat Clear Calc 37.33 Est GFR (MDRD) Af Amer 56 L Est GFR (MDRD) Non-Af 46 L BUN/Creatinine Ratio 18.5 Glucose 254 H Calcium 11.2 H EKG Initial EKG: Attestation: I personally reviewed and interpreted this EKG as follows: Interpretation: Sinus Rhythm (Sinus rhythm at 79 bpm. No acute ischemia.) Treatment and Re-Evaluation Narrative: CBC and chemistry studies per my interpretation significant only for creatinine of 1.19 with a BUN of 22. This is only slightly elevated above her baseline, although she does have reported history of stage III chronic renal failure. Glucose is 254. Portable chest x-ray per my interpretation was chronic changes with no focal infiltrate. Pelvis and left hip x-rays per my interpretation reveal a left femoral neck fracture. Test results are discussed with the patient. She has seen Dr. Ravi previously prior to his group home. Dr. Byrd is on-call for [facility] and I will speak with him regarding admission to hospitalist service and need for surgical repair. Discharge Plan Dx/Rx/DC Orders Clinical Impression: Fracture of hip, left, closed Disposition Disposition: Acute Care Hospital [facility]
[2023-12-27 22:47] LABS: Absolute Lymphocyte Count 3.04 X10^3/uL (0.83-4.51); Absolute Neutrophil Count 4.2 X10^3/uL (2.0-7.7); Basophil# 0.04 X10^3/uL; Basophil% 0.5 % (0-1); Eosinophil# 0.25 X10^3/uL; Eosinophils% 3.1 % (0-5); Hematocrit 39.8 % (37-47); Hemoglobin 12.4 g/dL (12.0-15.0); Lymphocyte # 3.04 X10^3/ul (0.83-4.51); Lymphocyte % 37.1 % (19-41); Mean Corp Hgb Conc 31.2 g/dL (32-36); Mean Corpuscular Hgb 26.6 pg (27.0-32.0); Mean Corpuscular Volume 85.2 fL (81-99); Mean Platelet Vol. 11.5 fl (6.2-12.0); Monocyte# 0.54 X10^3/uL; Monocyte% 6.6 % (0-10); NRBC Flagged by Analyzer 0 % (0-5); Neutrophil # 4.24 X10^3/uL (2.7-7.7); Neutrophil % 51.7 % (47-70); Platelet Count 237 K/mm3 (150-450); RBC Distribution Width CV 15.5 % (11.6-14.6); Red Blood Count 4.67 M/mm3 (4.2-5.4); White Blood Count 8.2 K/mm3 (4.4-11.0)
[2023-12-27] MEDS: Ondansetron 4 MG/2 ML Vial IV (22:56)
[2023-12-27] MEDS: Morphine 4 MG/ML Syringe IV (22:56)
[2023-12-27 22:58] LABS: Anion Gap 4 (5-15); BUN 22 mg/dL (7-18); BUN/Creat Ratio 18.5 RATIO (10-20); Calcium,Total 11.2 mg/dL (8.5-10.1); Chloride 103 mmol/L (98-107); Creatinine, Serum 1.19 mg/dL (0.55-1.02); EST Glomerular Filtration Rate 46 mL/min (>60); Est Glom Filt Rate - Afr Amer 56 mL/min (>60); Estimated Creatinine Clearance 37.33 ml/min; Glucose 254 mg/dL (74-106); Potassium 4.2 mmol/L (3.5-5.1); Sodium Level 136 mmol/L (136-145)
--- NOTE | 2023-12-27 23:05 | RAD_ITS ---
STUDY: X-RAY CHEST REASON FOR EXAM: Female, 78 years old. sob TECHNIQUE: Single AP portable view of the chest. COMPARISON: None. FINDINGS: The lungs are clear and expanded. There is no demonstrated pleural abnormality. Normal size heart. Normal mediastinum and eliana. Normal visualized pulmonary arteries. There is atherosclerotic calcification of the aortic arch with tortuosity. Normal visualized thoracic spine. Normal visualized ribs, clavicles, and shoulders. There is no demonstrated abnormality of the visualized soft tissue structures of the upper abdomen. RAD/Chest 1 View IMPRESSION: Normal x-ray examination of the chest. Electronically Signed: Weston Patel MD at 23:29 EDT ,
--- NOTE | 2023-12-27 23:05 | RAD_ITS ---
STUDY: X-RAY - PELVIS AND LEFT HIP REASON FOR EXAM: Female, 78 years old. injury TECHNIQUE: 3 views of the pelvis and hip. COMPARISON: 08/07/2023 FINDINGS: There is a non-specific bowel gas pattern. Normal visualized soft tissue structures. Normal bilateral iliac wings, sacroiliac joints and visualized sacrum. Normal bilateral superior and inferior pubic rami. Normal pubic symphysis. Normal bilateral ischial tuberosities. Acute impacted fracture of the transcervical femoral neck. Normal acetabulum. Normal hip joint. RAD/HIP, UNI W/ Pelvis 2-3 Views IMPRESSION: Acute impacted fracture of the transcervical femoral neck. Electronically Signed: Weston Patel MD at 23:30 EDT ,
--- NOTE | 2023-12-27 23:30 | HP.PCM.HOS_ITS ---
HPI - General General Date of Admission: 12/27/23 Date of Service: 12/27/23 Chief Complaint: Left hip fracture HPI Narrative OLGA DONALDSON, is a 78 F who presented to [facility] ED on 12/27/2023 with left hip pain after a fall at home. Patient lives at home with her , does use a walker for ambulation but otherwise has decent functional status. Patient stated she was getting up off the couch to go cath herself when she turned and lost her balance and fell on her left hip. She was found on exam in the ED to have left leg shortening with external rotation. X- ray confirmed an acute impacted fracture of the transcervical femoral neck. ED physician spoke with Dr. Byrd and tentative plan is for OR tomorrow for surgery. Hospitalist was then contacted for admission. I saw the patient at bedside in the ED. She received pain medication on arrival to the ED which was helpful for her. She was sitting up fairly comfortably in bed, conversing normally, in no acute distress. She denied any hip or leg pain currently when still but does have significant pain with any movement. States that her last surgery that she remembers was approximate 30 years ago when she apparently had something done on either her right hip or knee. She is not aware of any prior reactions to anesthesia. She does have history of COPD, is not on home O2. She is breathing comfortably on room air with no wheezing noted today. Has been taking her home inhalers as prescribed. Also has a history of type 2 diabetes mellitus. Last A1c was 8.2% on 10/26/2023, previous A1c values in 2022 were in the 7-8 range. Home diabetes regimen includes insulin detemir 20 units twice daily, insulin aspart 5 units with meals, Januvia, Jardiance and Trulicity. She reports compliance with her home regimen. Has been taking all other home medications as prescribed. Labs here notable for hemoglobin 12.4 (previous baseline 9-11), normal WBC count, platelets 237, INR 1.1, creatinine 1.19 (slightly up from baseline 0.8-1.0), BMP otherwise normal, glucose 254, calcium 11.2. Patient will be admitted for further management. [facility] Medical History Anemia Anxiety Aortic stenosis Asthma Carpal tunnel syndrome of right wrist Cellulitis and abscess of finger, unspecified Chronic idiopathic constipation Chronic renal failure, stage 3 (moderate) Colon polyp COPD (chronic obstructive pulmonary disease) Coronary artery disease Depression Diabetes Diabetic retinopathy Foraminal stenosis of lumbar region Former smoker GERD (gastroesophageal reflux disease) Goiter, nontoxic, multinodular History of malignant neoplasm of breast Hx of venous thrombosis and embolism Hypercalcemia Hyperlipidemia Hypertension Hypokalemia Hyponatremia Hypophosphatemia Iron deficiency anemia Irregular heart beat Leg weakness, bilateral Lumbar spinal stenosis Microcytic anemia Multiple thyroid nodules Neurogenic bladder Paronychia of left index finger Peripheral artery disease Polypharmacy Pruritus Retinopathy Rhinitis Strain of right rotator cuff capsule Thyroid goiter Type 2 diabetes mellitus Urinary retention with incomplete bladder emptying Urine retention UTI (urinary tract infection) Vaginal cyst Vitamin D deficiency Home Medications aspirin 81 mg chewable tablet 81 mg PO DAILY HERT HEALTH 01/21/16 [History Last Taken 08/12/23] albuterol sulfate 90 mcg/actuation aerosol inhaler 2 puff inhalation Q4H PRN Sob &/Or Wheezing 08/16/18 [History Last Taken 07/10/20 06:30] diltiazem HCl 180 mg tablet,extended release 24 hr 180 mg PO DAILY BLOOD PRESSURE 08/16/18 [History Last Taken 08/12/23] magnesium oxide 400 mg (241.3 mg magnesium) tablet 400 mg PO BID SUPPLEMENT 08/16/18 [History Last Taken 08/12/23] metoprolol tartrate 25 mg tablet 25 mg PO BID BLOOD PRESSURE 08/16/18 [History Last Taken 08/12/23] pantoprazole 40 mg tablet,delayed release 40 mg PO QHS ACID REFLUX 12/02/19 [History Last Taken 08/12/23] empagliflozin 10 mg tablet (Jardiance) 10 mg PO DAILY DIABETES 10/18/20 [History Last Taken 08/12/23] sitagliptin phosphate 50 mg tablet (Januvia) 50 mg PO DAILY DIABETES 10/18/20 [History Last Taken 08/12/23] budesonide-formoterol HFA 160 mcg-4.5 mcg/actuation aerosol inhaler (Symbicort) 2 puff inhalation BID 12/06/21 [History Last Taken 08/12/23] multivitamin 1 tab PO DAILY 12/06/21 [History Last Taken 08/12/23] pravastatin 20 mg tablet 20 mg PO DAILY CHOLESTEROL 12/06/21 [History Last Taken 08/12/23] ascorbic acid (vitamin C) 250 mg tablet (Vitamin C) 250 mg PO DAILY SUPPLEMENT 08/13/23 [History Last Taken 08/12/23] azelastine 137 mcg (0.1 %) nasal spray aerosol 137 mcg intranasal BID RUNNY NOSE 08/13/23 [History Last Taken 08/12/23] cod liver oil 1 cap PO DAILY SUPPLEMENT 08/13/23 [History Last Taken 08/12/23] dulaglutide 0.75 mg/0.5 mL subcutaneous pen injector (Trulicity) 0.75 mg subcut MO DIABETES 08/13/23 [History Last Taken 08/10/23] fiber 1 cap PO DAILY CONSTIPATION 08/13/23 [History Last Taken 08/12/23] gabapentin 100 mg capsule 100 mg PO QHS NERVE PAIN 08/13/23 [History Last Taken 08/12/23] roflumilast 500 mcg tablet 500 mcg PO DAILY COPD 08/13/23 [History Last Taken 08/12/23] insulin aspart U-100 100 unit/mL subcutaneous solution 5 unit (0.05 mL) subcut BIDCM DIABETES #10 mL 08/17/23 [Rx Last Taken 08/12/23] insulin detemir U-100 100 unit/mL (3 mL) subcutaneous pen 20 unit (0.2 mL) subcut BIDCM DIABETES #15 mL 08/17/23 [Rx Last Taken 08/12/23] Allergy/AdvReac Type Severity Reaction Status Date / Time adhesive tape [tape] Allergy NEEDS Verified 12/27/23 22:08 FOLLOW-UP amoxicillin Allergy YEAST Verified 12/27/23 22:08 INFECTION cephalexin monohydrate Allergy Rash Verified 12/27/23 22:08 [From Keflex] clopidogrel bisulfate Allergy Other Verified 12/27/23 22:08 [From Plavix] Family History Daughter Breast cancer Father Hypertension Sister Cancer Kidney disease Mother Pancreatic cancer Surgical History H/O dilation and curettage (~07/10/20) History of Achilles tendon repair History of lumpectomy of left breast Retinopathy S/P fine needle aspiration (~10/2020) Social History household members: spouse Smoking Status: Former smoker alcohol intake: never substance use type: does not use caffeine: Yes what type of physical activity do you participate in: none seatbelt use: always do you feel safe at home: Yes additional social history: [employer]- retired ROS Constitutional Constitutional: Denies chills, fatigue, fever(s) or weakness Eyes Eyes: Denies change in vision Cardiovascular Cardiovascular: Denies chest pain Respiratory/Chest Respiratory/Chest: Denies shortness of breath at rest Gastrointestinal Gastrointestinal: Denies abdominal pain Musculoskeletal Musculoskeletal: Reports joint pain; Denies back pain Vital Signs Vital Signs Vital Signs: 12/27/23 22:06 12/27/23 22:24 Temperature 98.1 F Temperature Source Temporal Pulse Rate 82 Respiratory Rate 16 Respiratory Effort Normal Non-Labored Respiratory Depth Normal Respiratory Pattern Normal Blood Pressure 173/72 H Blood Pressure Mean 105 Pulse Ox 98 Oxygen Delivery Method Room Air Room Air Weight Weight: 75.6 kg Body Mass Index (BMI) 29.5 Physical Exam Const alert, oriented x3 and no apparent distress Constitutional Narrative: Pleasant elderly female, sitting up comfortably in bed, conversing normally, in no acute distress. General Appearance: cooperative and comfortable HEENT normocephalic, head/scalp atraumatic, hearing grossly normal bilaterally and na deepali mucous membranes and turbinates normal Eyes PERRL, EOMs intact bilaterally and conjunctivae normal Neck full ROM Chest inspection of chest normal Resp normal respiratory effort, normal air movement, no use of accessory muscles and clear to auscultation bilaterally Auscultation: Negative for crackles or wheezes Cardio regular rate, regular rhythm, no murmurs and peripheral pulses 2+ throughout GI normal to inspection, nondistended, normoactive bowel sounds, soft to palpation, non-tender and non-distended Back/Spine normal ROM Extremity Extremity Narrative: Left lower extremity appears shortened and externally rotated on visual exam. Skin no rashes or lesions noted Neuro Speech: speech normal Psych mental status grossly normal Results Lab / Micro Data 12/27/23 22:35 12/27/23 22:35 Labs: Laboratory Results - last 24 hr 12/27/23 22:35: WBC 8.2, RBC 4.67, Hgb 12.4, Hct 39.8, MCV 85.2, MCH 26.6 L, MCHC 31.2 L, RDW Std Deviation 47.0 H, RDW Coeff of Vijay 15.5 H, Plt Count 237, MPV 11.5, Immature Gran % (Auto) 1.000 H, Neut % (Auto) 51.7, Lymph % (Auto) 37.1, [place] % (Auto) 6.6, Eos % (Auto) 3.1, Baso % (Auto) 0.5, Absolute Neuts (auto) 4.2, Absolute Lymphs (auto) 3.04, Nucleated RBC % 0, PT Cancelled, INR Cancelled, APTT Cancelled, Sodium 136, Potassium 4.2, Chloride 103, Carbon Dioxide 29.0, Anion Gap 4 L, BUN 22 H, Creatinine 1.19 H, Estim Creat Clear Calc 37.33, Est GFR (MDRD) Af Amer 56 L, Est GFR (MDRD) Non-Af 46 L, BUN/Creatinine Ratio 18.5, Glucose 254 H, Calcium 11.2 H Assessment & Plan Assessment/Plan (1) Fracture of hip, left, closed: (2) Weakness: (3) Hypercalcemia: PLAN: Plan Patient is a 78-year-old female who presented [facility] ED on 12/27/2023 with left hip pain after a fall at home. 1. Left femoral neck fracture ? Admit under inpatient status to [facility]. Orthopedics consulted. N.p.o. at midnight. Preop evaluation as noted below. PT/OT/case management consulted. Pain control with scheduled Tylenol, p.o. oxycodone as needed and IV Dilaudid as needed. 2. Preoperative evaluation ? NSQIP score: Patient has average risk of serious complication, below average risk of any complication given her with factors of age, partially dependent functional status, mild systemic disease, insulin-dependent diabetes and hypert ension. ? Labs/imaging: Chest x-ray on admit nonacute. No further imaging or lab workup needed prior to procedure. Follow-up postop CBC and BMP. ? EKG/echo: EKG in ED showed normal sinus rhythm, no ST changes. Appeared similar to last EKG from July. Last echo in 2020 showed normal EF with mo derate aortic stenosis. Patient is hemodynamically stable here at rest, denies any chest pain or shortness of breath with exertion recently. No need for repeat echo prior to procedure. ? Medications: Okay to continue home beta-jefe and aspirin on day of procedure. Holding home diltiazem as noted below. Giving reduced dose of long- acting insulin on day of procedure given n.p.o. status. ? Previous procedural complications: None. ? Recommendation: Patient is medically optimized for procedure. 3. Mild creatinine elevation ? Creatinine 1.19 on admit, baseline creatinine around 0.8-1.0. Suspect due to mild dehydration as other labs appear somewhat hemoconcentrated. Will give 750 cc of IV fluids over 5 hours prior to procedure. Follow-up a.m. BMP and urine output. 4. Type 2 diabetes mellitus with hyperglycemia ? Current home regimen of insulin detemir 20 units twice daily, Humalog 5 units with meals, Januvia 50 mg daily, Jardiance 10 mg daily, Trulicity weekly. Most recent A1c 8.2% on 10/24. On chart review, patient was hospitalized in July 2023. Was noted then that she had history of poorly controlled diabetes with very high insulin requirements. However, her blood sugars during the hospitalization were low and her insulin regimen was significantly reduced with better insulin control. Blood glucose 254 on admit, suspect this is in part due to acute stress from hip fracture. Will start Lantus 15 units twice daily and Humalog sliding scale insulin with meals while inpatient, adjust as needed. Repeat A1c ordered. 5. Hypercalcemia ? Calcium 11.2 on admit. Known history of mild hypercalcemia, was 10-11 during previous hospitalization in July. PTH was 153 at that time concerning for primary hyperparathyroidism. Plan was for outpatient follow-up for further workup but does not appear this was done. Will repeat PTH now. If remains high, would continue to have concern for primary hyperparathyroidism and this could be contributing to calcium withdrawal from bones leading to possible osteopenia versus osteoporosis. Given IV fluids in the ED as noted above, follow-up a.m. calcium level. Would recommend close outpatient follow-up with endocrinology. 6. COPD ? Not on home O2. Breathing comfortably on room air on arrival here with good saturations, no wheezing noted, no concern for acute exacerbation. Continue rafa e inhalers and roflumilast. 7. Chronic urinary retention with self-catheterization ? UA on admit noninfectious appearing. Given current immobility and plan for procedure, Serna catheter placed in the ED. Recommend voiding trial prior to discharge. 8. Chronic anemia ? Hemoglobin 12.4 on admit, recent baseline around 9-11. Suspect somewhat hemoconcentrated as noted above. Follow-up a.m. CBC. 9. Hypertension ? Home regimen listed as Lopressor 25 mg twice daily and diltiazem 180 mg daily. Heart rate in the 80s in the ED, normal sinus rhythm. Unclear why patient is on both a beta-jefe and nondihydropyridine calcium channel jefe. BP elevated to the 150s to 170s on admit but suspect this is in part due to pain. Will continue Lopressor and hold diltiazem for now. 10. GERD ? Stable. Continue home PPI. DVT prophylaxis: Lovenox CODE STATUS: Full code, verified Expected disposition: TBD Total clinical time spent by myself addressing the patient's medical issues, reviewing all the data, and collaborating with patient's care team: 75 minutes. Charges/Coding Visit Charges Inpatient E&M: 36075 Init Hosp L3
[2023-12-27 23:39] LABS: International Normalized Ratio 1.1; Prothrombin Time (Protime)PT. 13.7 SECONDS (11.7-14.9)
[2023-12-27 23:40] LABS: Partial Thromboplast Time 27.3 Seconds (24.1-36.2)
[2023-12-27 23:42] VITALS: BP 159/59; PULSE 77; RESP 20; TEMP 36.4; O2SAT 97
[2023-12-28] VITALS (20 sets, daily range): BP systolic 105–170; BP diastolic 41–89; PULSE 76–95; RESP 16–19; TEMP 36.1–37.1; O2SAT 88–99; BMI 27.8
[2023-12-28] MEDS: Lactated Ringers 1,000 ML 150 ML IV (00:43)
[2023-12-28] MEDS: MELATONIN 3 MG TABLET PO ×2 (01:02→22:42)
[2023-12-28] MEDS: oxyCODONE 5 MG Tablet PO ×2 (01:03→06:38)
[2023-12-28] MEDS: Acetaminophen 500 MG Tablet 1000 MG PO ×4 (01:03→22:38)
[2023-12-28] MEDS: Insulin Glargine-YFGN 100 UNIT/ML Pen 15 UNIT SC ×2 (01:04→22:36)
[2023-12-28 02:04] LABS: Bedside Glucose 212 mg/dL (74-106)
[2023-12-28 05:04] LABS: Hematocrit 36.5 % (37-47); Hemoglobin 11.4 g/dL (12.0-15.0); Mean Corp Hgb Conc 31.2 g/dL (32-36); Mean Corpuscular Hgb 26.5 pg (27.0-32.0); Mean Corpuscular Volume 84.9 fL (81-99); Mean Platelet Vol. 11.1 fl (6.2-12.0); Platelet Count 215 K/mm3 (150-450); RBC Distribution Width CV 15.3 % (11.6-14.6); RBC Distribution Width SD 46.1 fl (35.1-43.9); White Blood Count 11.3 K/mm3 (4.4-11.0)
[2023-12-28 05:22] LABS: Anion Gap 6 (5-15); BUN 23 mg/dL (7-18); BUN/Creat Ratio 20.2 RATIO (10-20); Calcium,Total 11.2 mg/dL (8.5-10.1); Chloride 106 mmol/L (98-107); Creatinine, Serum 1.14 mg/dL (0.55-1.02); EST Glomerular Filtration Rate 49 mL/min (>60); Est Glom Filt Rate - Afr Amer 59 mL/min (>60); Glucose 270 mg/dL (74-106); Potassium 4.5 mmol/L (3.5-5.1); Sodium Level 139 mmol/L (136-145)
[2023-12-28] MEDS: Insulin Lispro 100 UNIT/ML INSULN.PEN SC ×3 (06:45→22:37)
[2023-12-28] MEDS: Ondansetron 4 MG/2 ML Vial IV (07:02)
[2023-12-28 07:10] LABS: Bedside Glucose 217 mg/dL (74-106)
[2023-12-28] MEDS: HYDROmorphone 0.5 MG/0.5 ML SYRINGE IV (07:47)
[2023-12-28] MEDS: 0.9% Saline Lock 10 ML Syringe IV (07:47)
[2023-12-28] MEDS: Metoprolol Tartrate 25 MG Tablet PO ×2 (07:49→22:39)
[2023-12-28] MEDS: Magnesium Chloride 64 MG Delay Rel.Tablet 128 MG PO ×2 (07:49→22:38)
[2023-12-28] MEDS: Multivitamins,Therapeutic Tablet 1 TABLET PO (07:50)
[2023-12-28] MEDS: Azelastine HCl NASAL.SRY 1 SPRAY NASAL (07:50)
[2023-12-28] MEDS: Ascorbic Acid 500 MG Tablet 250 MG PO (07:50)
[2023-12-28 08:14] LABS: PTHIN 177.6 pg/mL (18.4-80.1)
[2023-12-28 09:06] LABS: Hemoglobin A1c 9.4 % (3.8-5.6)
--- NOTE | 2023-12-28 09:45 | CASEMGMT ---
SHAWANDA BURROUGHS Assessment: Face to Face with pt for initial transition planning/care coordination assessment. SHAWANDA BURROUGHS introduced self and role at [facility], pt voices understanding and consents to assessment. Pt laying in bed in no distress. Pt is A&O x4 and answers all questions appropriately at this time. Care providers, pharmacy, and demographics verified/updated. Admitting Dx: L Hip fracture PCP: Baljit Specialists: Chasidy Suazo Pharmacy: [facility] [place] [facility] [place] Insurance: [facility] Prescription Benefit: yes [facility]: [facility] [place] [facility] [place] Living Arrangements: Pt lives in 2 story home with and son. Pt stated son lives upstairs, she lives on the main level with her . Pt states son assists with getting groceries and they use Meals on Wheels. Pt able to self-cath. Pt stated her not in great health and needs assistance. Transportation: Pt sated son drives and is able to assist with doctors appointments and taking her where she needs to go. DME: Walker, cane, shower chair, glucometer, sufficient supply of strips and lancets, sufficient supply of insulin and needles. Pt stated she uses [facility] for cathing supplies. HHC/SNF: Hx of [facility] HHC. Denies Hx of SNF. Reports active with CCN program. Pt states no further concerns/needs. Discussed with pt we will see how she does with therapy after surgery for DC plan. CM to follow. Advised pt to ask CM if any further question/concerns/needs arise, voices understanding. Pt Goal: Home Plan: TBD pending surgery and therapy evals. Jesus MAYBERRY CM
--- NOTE | 2023-12-28 09:49 | PN.HOSP_ITS ---
Reason for Visit Reason for Visit: Diagnoses Hypercalcemia (12/27/23) Weakness (12/27/23) Fracture of unspecified part of neck of left femur, initial encounter for closed fracture (12/27/23) Objective Data Objective Data Vital Signs: Vital Signs Temp Pulse Resp BP Pulse Ox O2 Del Method 97.9 F 81 18 130/52 H 96 Room Air 12/28/23 07:43 12/28/23 07:49 12/28/23 07:43 12/28/23 07:43 12/28/23 07:43 12/28/23 07:43 Oxygen Delivery Method Room Air Weight: 157 lb 6.561 oz Body Mass Index (BMI) 27.8 Intake & Output: Intake and Output for Last 24 Hours 12/26/23 12/27/23 12/28/23 23:59 23:59 23:59 Intake Total 1000 / 1000 Output Total 1300 / 1300 Balance -300 / -300 Lab / Micro Data 12/28/23 04:35 12/28/23 04:35 Labs: Laboratory Results - last 24 hr 12/27/23 22:35: WBC 8.2, RBC 4.67, Hgb 12.4, Hct 39.8, MCV 85.2, MCH 26.6 L, MCHC 31.2 L, RDW Std Deviation 47.0 H, RDW Coeff of Vijay 15.5 H, Plt Count 237, MPV 11.5, Immature Gran % (Auto) 1.000 H, Neut % (Auto) 51.7, Lymph % (Auto) 37.1, [place] % (Auto) 6.6, Eos % (Auto) 3.1, Baso % (Auto) 0.5, Absolute Neuts (auto) 4.2, Absolute Lymphs (auto) 3.04, Nucleated RBC % 0, PT Cancelled, INR Cancelled, APTT Cancelled, Sodium 136, Potassium 4.2, Chloride 103, Carbon Dioxide 29.0, Anion Gap 4 L, BUN 22 H, Creatinine 1.19 H, Estim Creat Clear Calc 37.33, Est GFR (MDRD) Af Amer 56 L, Est GFR (MDRD) Non-Af 46 L, BUN/Creatinine Ratio 18.5, Glucose 254 H, Hemoglobin A1c 9.4 H, Calcium 11.2 H 12/27/23 23:24: PT 13.7, INR 1.1, APTT 27.3 12/28/23 00:56: POC Glucose 212 H 12/28/23 04:35: WBC 11.3 H, RBC 4.30, Hgb 11.4 L, Hct 36.5 L, MCV 84.9, MCH 26.5 L, MCHC 31.2 L, RDW Std Deviation 46.1 H, RDW Coeff of Vijay 15.3 H, Plt Count 215, MPV 11.1, Sodium 139, Potassium 4.5, Chloride 106, Carbon Dioxide 27.0, A nion Gap 6, BUN 23 H, Creatinine 1.14 H, Estim Creat Clear Calc 37.90, Est GFR (MDRD) Af Amer 59 L, Est GFR (MDRD) Non-Af 49 L, BUN/Creatinine Ratio 20.2 H, Glucose 270 H, Calcium 11.2 H, PTH Intact 177.6 H, Blood Type B POSITIVE, Antibody Screen NEGATIVE 12/28/23 06:41: POC Glucose 217 H Radiography Diagnostic Testing: Radiology Impression Chest X-Ray 12/27/23 23:05 IMPRESSION: Normal x-ray examination of the chest. Electronically Signed: Weston Patel MD at 23:29 EDT , Hip/Pelvis X-Ray 12/27/23 23:05 IMPRESSION: Acute impacted fracture of the transcervical femoral neck. Electronically Signed: Weston Patel MD at 23:30 EDT , Physical Exam Narrative Seen and examined. She lost the balance and fall on the left hip. She denies history of osteoporosis. She does self-catheterization for history of urine retention but denies history of burning micturition. Physical exam General: Alert, Oriented x3, Cooperative HEENT: Atraumatic, PERRLA, EOMI, Normocephalic Oral: Oral mucosa moist. No Gingival or Mucosal Lesions/ Ulcerations Neck: Supple, No JVD, Negative Carotid Bruits Chest wall/Lungs: Air entry diminished in bilateral lung bases. No crepitation/rhonchi Cardiovascular: Regular rate, Regular Rhythm, Normal S1, Normal S2, systolic murmur present. Abdomen: Bowel Sounds Present, Soft, Non Tender, Non-Distended : No dysuria. No renal angle tenderness. No suprapubic tenderness. Extremities: No edema, Capillary Refill Less than 3 Seconds Skin: No rashes, No breakdown Musculoskeletal: Left lower extremity flexed, short and externally rotated. Tenderness present over left hip greater trochanter. No Tenderness to Palpation of other joints or Extremities. Neurological: Cranial nerves II-XII grossly intact, DTR 2+/4. No acute focal neurological deficit. Psych/Mental Status: Normal Affect, Appropriate. Assessment & Plan Assessment/Plan (1) Fracture of hip, left, closed: (2) Weakness: (3) Hypercalcemia: PLAN: Plan Patient is a 78-year-old female who presented [facility] ED on 12/27/2023 with left hip pain after a fall at home. She got up from the couch to self catheter, got her walker turned and then lost balance and fell on her left hip. 1. Acute debility due to left impacted transcervical femoral neck fracture. ? Admit under inpatient status to [facility]. Orthopedics consulted. N.p.o. at midnight. PT/OT/case management consulted. Pain control with scheduled Tylenol, p.o. oxycodone as needed and IV Dilaudid as needed. 2. Preoperative evaluation ? NSQIP score: Patient has average risk of serious complication, below average risk of any complication given her with factors of age, partially dependent functional status, mild systemic disease, insulin-dependent diabetes and hypertension. ? Labs/imaging: Chest x-ray on admit nonacute. No further imaging or lab workup needed prior to procedure. ? EKG/echo: EKG in ED showed normal sinus rhythm, no ST changes. Appeared similar to last EKG from July. Last echo in 2020 showed normal EF with moderate aortic stenosis. Patient is hemodynamically stable here at rest, denies any chest pain or shortness of breath with exertion recently. No need for repeat echo prior to procedure. ? Medications: Okay to continue home beta-jefe and aspirin on day of procedure. Holding home diltiazem as noted below. Giving reduced dose of long- acting insulin on day of procedure given n.p.o. status. ? Recommendation: Patient is medically optimized for procedure. 12/27: Monitor postop CBC and BMP. Patient denies history of previous joint replacement. Continue incentive spirometry. 3. Mild creatinine elevation ? Creatinine 1.19 on admit, baseline creatinine around 0.8-1.0. Suspect due to mild dehydration as other labs appear somewhat hemoconcentrated. Will give 750 cc of IV fluids over 5 hours prior to procedure. Follow-up a.m. BMP and urine output. 12/27: Repeat creatinine 1.14. Improvement in creatinine. Continue IV fluid while NPO. 4. Type 2 diabetes mellitus with hyperglycemia ? Current home regimen of insulin detemir 20 units twice daily, Humalog 5 units with meals, Januvia 50 mg daily, Jardiance 10 mg daily, Trulicity weekly. Most recent A1c 8.2% on 10/24. On chart review, patient was hospitalized in July 2023. Was noted then that she had history of poorly controlled diabetes with very high insulin requirements. 12/27: Lantus 15 units twice daily and Humalog sliding scale insulin with meals while inpatient, adjust as needed. Repeat A1c 9.4%. 5. Hypercalcemia ? Calcium 11.2 on admit. Known history of mild hypercalcemia, was 10-11 during previous hospitalization in July. PTH was 153 at that time concerning for primary hyperparathyroidism. Plan was for outpatient follow-up for further workup but does not appear this was done. If remains high, would continue to have concern for primary hyperparathyroidism and this could be contributing to calcium withdrawal from bones leading to possible osteopenia versus osteoporosis. recommend close outpatient follow-up with endocrinology. 12/27: PTH 217. Calcium 11.2. Continue IV fluid. 6. COPD ? Not on home O2. Breathing comfortably on room air on arrival here with good s aturations, no wheezing noted, no concern for acute exacerbation. Continue home inhalers and roflumilast. 12/27 denies any recent admission for COPD exacerbation 7. Chronic urinary retention with self-catheterization ? UA on admit noninfectious appearing. Given current immobility and plan for procedure, Serna catheter placed in the ED. Recommend voiding trial prior to discharge. 8. Chronic anemia ? Hemoglobin 12.4 on admit, recent baseline around 9-11. Suspect somewhat hemoconcentrated as noted above. 12/27: H&H 11.4/36.5%. 9. Hypertension ? Home regimen listed as Lopressor 25 mg twice daily and diltiazem 180 mg daily. Heart rate in the 80s in the ED, normal sinus rhythm. Unclear why patient is on both a beta-jefe and nondihydropyridine calcium channel jefe. BP elevated to the 150s to 170s on admit but suspect this is in part due to pain. Will continue Lopressor and hold diltiazem for now. 10. GERD ? Stable. Continue home PPI. DVT prophylaxis: Lovenox CODE STATUS: Full code, verified Expected disposition: TBD Charges/Coding Visit Charges Inpatient E&M: 03976 Subs Hosp L2
--- NOTE | 2023-12-28 11:43 | NURSING ---
1230 pre op antibiotic sent down with pt
[2023-12-28 11:55] LABS: Bedside Glucose 138 mg/dL (74-106)
[2023-12-28] MEDS: Lactated Ringers 1,000 ML 15 ML IV ×2 (12:20→14:15)
--- NOTE | 2023-12-28 12:30 | FEM_PTH ---
PATIENT: OLGA DONALDSON LOC: MS3 U#:[id number] AGE/SX: 78/F ROOM: [facility] [place]12/27/[address]: Dr. Sunny Bell MD : 1945 BED: 1 DIS: 12/30/2023 SPEC #: [id number] RECD: 12/28/23 15:51 STATUS: HARIS REQ #: [id number] HUSSEIN: 12/28/23 12:[address]: Gabriel Byrd DEPT: SURGICAL PATHOLOGY RECD BY: Jana Dee ENTERED: 12/29/23 07:45 SP TYPE: FEM HEAD OTHR DR: DO Dr. Ramone Shirley MD Dr. Prakash Chand, MD Dr. Steven Widmer, MD Tissues: Femoral region, NOS Procedures: Decalcification bone/plaque Surgery Specimen Level V Comments: @ Ordering doctor for DEC edited from to @ by BEATRIZ at 12/29/23825 @ Ordering doctor for SUV edited from to @ by BEATRIZ at 12/29/23825 @ Submitting doctor edited from to @ by BEATRIZ at 12/29/23825 HEADER OPERATION: Hemiarthroplasty, hip PRE-OP DIAGNOSIS: Fracture of hip, left closed TISSUE SUBMITTED: Bone - left hip MICROSCOPIC DIAGNOSIS Bone and tissue of left hip, total hip resection: Consistent with organizing fracture callus. AM:mr 01/01/24 MICROSCOPIC DESCRIPTION Slides are reviewed. GROSS DESCRIPTION Received is one container labeled with the patient's name and designated femoral head and tissue. The specimen consists of a garcía femoral head measuring 4.5 x 4.5 x 4.3 cm. The articular surface is grossly unremarkable. The non-articular surface is hemorrhagic and irregular consistent with fracture site appeared. Resection margin is irregular and hemorrhagic. Also present in the specimen container are multiple detached pieces of bone measuring in aggregate 5.0 x 4.0 x 1.0 cm. Also present in the container is a piece of soft tissue measuring 7.0 x 3.0 x 1.2 cm. Care Partner sections are submitted in three cassettes as follows: 1 - soft tissue, 2&3 - bone after decalcification AM/mr 12/29/23 TC:5 CPT: 34954, 35861
--- NOTE | 2023-12-28 12:45 | RAD_ITS ---
EXAM: XR LEFT HIP, 1 VIEW CLINICAL INDICATION: HEMIARTHROPLASTY TECHNIQUE: Frontal view of the left hip when performed. COMPARISON: 12/27/2023. FINDINGS: BONES/JOINTS: Femoral component and acetabular component of the left metallic hip arthroplasty are in good anatomic alignment. No displaced fracture. No destructive or sclerotic lesions. Note that overlapping bowel shadows may however obscure fine detail. Sacroiliac joint is unremarkable. No widening of the pubic symphysis. SOFT TISSUES: Postoperative soft tissue swelling around the left hip following left metallic hip arthroplasty. RAD/Hip 1 view with Pelvis IMPRESSION: Normal postoperative left hip metallic hip arthroplasty when compared to previous pelvis radiograph of 12/19/2023. Electronically Signed: Billy Shirley MD at 14:25 EDT ,
--- NOTE | 2023-12-28 12:52 | CONS.ORTHO ---
HPI Consult Data Date of Consult: 12/28/23 HPI Narrative Reason for Consultation: left hip pain HPI Narrative: OLGA DONALDSON, is a 78 F with extensive medical history who presents today with left hip pain. Patient notes that she has had multiple falls recently and uses a walker at home. Yesterday while she was getting up out of a chair she lost her balance and fell when she was unable to catch herself. Currently she reports 6 out of 10 pain worse with motion better with immobilization in the left hip and thigh. She denies any associated new numbness and tingling distally. She reports her chronic paresthesias associated with previous ankle surgery. She was seen and evaluated in the emergency department found to have a femoral neck fracture. She was optimized by medicine overnight. She lives at home with her . She reports increased dependence on the walker over the last several months in relation to falls. She denies any previous DVTs or PEs. [facility] Medical History Anemia Anxiety Aortic stenosis Asthma Carpal tunnel syndrome of right wrist Cellulitis and abscess of finger, unspecified Chronic idiopathic constipation Chronic renal failure, stage 3 (moderate) Colon polyp COPD (chronic obstructive pulmonary disease) Coronary artery disease Depression Diabetes Diabetic retinopathy Foraminal stenosis of lumbar region Former smoker GERD (gastroesophageal reflux disease) Goiter, nontoxic, multinodular History of malignant neoplasm of breast Hx of venous thrombosis and embolism Hypercalcemia Hyperlipidemia Hypertension Hypokalemia Hyponatremia Hypophosphatemia Iron deficiency anemia Irregular heart beat Leg weakness, bilateral Lumbar spinal stenosis Microcytic anemia Multiple thyroid nodules Neurogenic bladder Paronychia of left index finger Peripheral artery disease Polypharmacy Pruritus Retinopathy Rhinitis Strain of right rotator cuff capsule Thyroid goiter Type 2 diabetes mellitus Urinary retention with incomplete bladder emptying Urine retention UTI (urinary tract infection) Vaginal cyst Vitamin D deficiency Home Medications aspirin 81 mg chewable tablet 81 mg PO DAILY [facility] 01/21/16 [History Last Taken 08/12/23] albuterol sulfate 90 mcg/actuation aerosol inhaler 2 puff inhalation Q4H PRN Sob &/Or Wheezing 08/16/18 [History Last Taken 07/10/20 06:30] diltiazem HCl 180 mg tablet,extended release 24 hr 180 mg PO DAILY BLOOD PRESSURE 08/16/18 [History Last Taken 08/12/23] magnesium oxide 400 mg (241.3 mg magnesium) tablet 400 mg PO BID SUPPLEMENT 08/16/18 [History Last Taken 08/12/23] metoprolol tartrate 25 mg tablet 25 mg PO BID BLOOD PRESSURE 08/16/18 [History Last Taken 08/12/23] pantoprazole 40 mg tablet,delayed release 40 mg PO QHS ACID REFLUX 12/02/19 [History Last Taken 08/12/23] empagliflozin 10 mg tablet (Jardiance) 10 mg PO DAILY DIABETES 10/18/20 [History Last Taken 08/12/23] sitagliptin phosphate 50 mg tablet (Januvia) 50 mg PO DAILY DIABETES 10/18/20 [History Last Taken 08/12/23] budesonide-formoterol HFA 160 mcg-4.5 mcg/actuation aerosol inhaler (Symbicort) 2 puff inhalation BID 12/06/21 [History Last Taken 08/12/23] multivitamin 1 tab PO DAILY 12/06/21 [History Last Taken 08/12/23] pravastatin 20 mg tablet 20 mg PO DAILY CHOLESTEROL 12/06/21 [History Last Taken 08/12/23] ascorbic acid (vitamin C) 250 mg tablet (Vitamin C) 250 mg PO DAILY SUPPLEMENT 08/13/23 [History Last Taken 08/12/23] azelastine 137 mcg (0.1 %) nasal spray aerosol 137 mcg intranasal BID RUNNY NOSE 08/13/23 [History Last Taken 08/12/23] cod liver oil 1 cap PO DAILY SUPPLEMENT 08/13/23 [History Last Taken 08/12/23] dulaglutide 0.75 mg/0.5 mL subcutaneous pen injector (Trulicity) 0.75 mg subcut MO DIABETES 08/13/23 [History Last Taken 08/10/23] fiber 1 cap PO DAILY CONSTIPATION 08/13/23 [History Last Taken 08/12/23] gabapentin 100 mg capsule 100 mg PO QHS NERVE PAIN 08/13/23 [History Last Taken 08/12/23] roflumilast 500 mcg tablet 500 mcg PO DAILY COPD 08/13/23 [History Last Taken 08/12/23] insulin aspart U-100 100 unit/mL subcutaneous solution 5 unit (0.05 mL) subcut BIDCM DIABETES #10 mL 08/17/23 [Rx Last Taken 08/12/23] insulin detemir U-100 100 unit/mL (3 mL) subcutaneous pen 20 unit (0.2 mL) subcut BIDCM DIABETES #15 mL 08/17/23 [Rx Last Taken 08/12/23] Allergy/AdvReac Type Severity Reaction Status Date / Time adhesive tape [tape] Allergy NEEDS Verified 12/27/23 22:08 FOLLOW-UP amoxicillin Allergy YEAST Verified 12/27/23 22:08 INFECTION cephalexin monohydrate Allergy Rash Verified 12/27/23 22:08 [From Keflex] clopidogrel bisulfate Allergy Other Verified 12/27/23 22:08 [From Plavix] Family History Daughter Breast cancer Father Hypertension Sister Cancer Kidney disease Mother Pancreatic cancer Surgical History H/O dilation and curettage (~07/10/20) History of Achilles tendon repair History of lumpectomy of left breast Retinopathy S/P fine needle aspiration (~10/2020) Social History household members: spouse Smoking Status: Former smoker alcohol intake: never substance use type: does not use caffeine: Yes what type of physical activity do you participate in: none seatbelt use: always do you feel safe at home: Yes additional social history: [employer]- retired ROS ROS Narrative 14 point review of systems not mentioned in the HPI is negative. Vital Signs Vital Signs Vital Signs: 12/27/23 22:06 12/27/23 22:24 12/27/23 23:42 Temperature 98.1 F 97.5 F L Temperature Source Temporal Pulse Rate 82 77 Respiratory Rate 16 20 H Respiratory Effort Normal Non-Labored Respiratory Depth Normal Respiratory Pattern Normal Blood Pressure 173/72 H 159/59 H Blood Pressure Mean 105 92 Blood Pressure Source Blood Pressure Position Blood Pressure Location Pulse Ox 98 97 Oxygen Delivery Method Room Air Room Air 12/28/23 00:39 12/28/23 00:57 12/28/23 01:25 Temperature 98.1 F Temperature Source Oral Pulse Rate 76 Respiratory Rate 16 Respiratory Effort Normal Non-Labored Respiratory Depth Normal Respiratory Pattern Normal Blood Pressure 153/59 H Blood Pressure Mean 90 Blood Pressure Source Monitor Blood Pressure Position Semi-Fowlers Blood Pressure Location Right Arm Pulse Ox 95 93 Oxygen Delivery Method Room Air Room Air Room Air 12/28/23 06:34 12/28/23 06:59 12/28/23 07:43 Temperature 98.2 F 97.9 F Temperature Source Oral Oral Pulse Rate 77 81 Respiratory Rate 18 18 Respiratory Effort Respiratory Depth Respiratory Pattern Blood Pressure 139/51 H 130/52 H Blood Pressure Mean 80 78 Blood Pressure Source Monitor Monitor Blood Pressure Position Semi-Fowlers Semi-Fowlers Blood Pressure Location Right Arm Right Arm Pulse Ox 95 92 96 Oxygen Delivery Method Room Air Room Air Room Air 12/28/23 07:49 12/28/23 11:27 Temperature 98.2 F Temperature Source Oral Pulse Rate 81 80 Respiratory Rate 18 Respiratory Effort Respiratory Depth Respiratory Pattern Blood Pressure 147/60 H Blood Pressure Mean 89 Blood Pressure Source Monitor Blood Pressure Position Semi-Fowlers Blood Pressure Location Right Arm Pulse Ox 93 Oxygen Delivery Method Room Air Weight Weight: 157 lb 6.561 oz Body Mass Index (BMI) 27.8 Physical Exam Const alert and oriented x3 General Appearance: cooperative HEENT normocephalic Eyes PERRL Neck no JVD Resp normal respiratory effort Cardio Cardio Narrative: Regular pulse rate GI non-distended Extremity Extremity Narrative: Left lower extremity: Skin clean, dry, and intact. Limb is shortened and externally rotated Motor is intact dorsiflexion, EHL and plantar flexion. Sensation is intact to light touch saphenous, shalonda,l superficial peroneal, deep peroneal and tibial distributions. Calves are soft and supple. Skin no rashes or lesions noted and no wounds Neuro CN's II-XII intact bilaterally Psych affect normal Medical Records Data Attestation: I reviewed the patient's medical records Lab / Micro Data Attestation: I reviewed the patient's lab results. 12/28/23 04:35 12/28/23 04:35 Labs: Laboratory Results - last 24 hr 12/27/23 22:35: WBC 8.2, RBC 4.67, Hgb 12.4, Hct 39.8, MCV 85.2, MCH 26.6 L, MCHC 31.2 L, RDW Std Deviation 47.0 H, RDW Coeff of Vijay 15.5 H, Plt Count 237, MPV 11.5, Immature Gran % (Auto) 1.000 H, Neut % (Auto) 51.7, Lymph % (Auto) 37.1, [place] % (Auto) 6.6, Eos % (Auto) 3.1, Baso % (Auto) 0.5, Absolute Neuts (auto) 4.2, Absolute Lymphs (auto) 3.04, Nucleated RBC % 0, PT Cancelled, INR Cancelled, APTT Cancelled, Sodium 136, Potassium 4.2, Chloride 103, Carbon Dioxide 29.0, Anion Gap 4 L, BUN 22 H, Creatinine 1.19 H, Estim Creat Clear Calc 37.33, Est GFR (MDRD) Af Amer 56 L, Est GFR (MDRD) Non-Af 46 L, BUN/Creatinine Ratio 18.5, Glucose 254 H, Hemoglobin A1c 9.4 H, Calcium 11.2 H 12/27/23 23:24: PT 13.7, INR 1.1, APTT 27.3 12/28/23 00:56: POC Glucose 212 H 12/28/23 04:35: WBC 11.3 H, RBC 4.30, Hgb 11.4 L, Hct 36.5 L, MCV 84.9, MCH 26.5 L, MCHC 31.2 L, RDW Std Deviation 46.1 H, RDW Coeff of Vijay 15.3 H, Plt Count 215, MPV 11.1, Sodium 139, Potassium 4.5, Chloride 106, Carbon Dioxide 27.0, Anion Gap 6, BUN 23 H, Creatinine 1.14 H, Estim Creat Clear Calc 37.90, Est GFR (MDRD) Af Amer 59 L, Est GFR (MDRD) Non-Af 49 L, BUN/Creatinine Ratio 20.2 H, Glucose 270 H, Calcium 11.2 H, Phosphorus 3.0, PTH Intact 177.6 H, Blood Type B POSITIVE, Antibody Screen NEGATIVE 12/28/23 06:41: POC Glucose 217 H 12/28/23 11:24: POC Glucose 138 H Imaging Radiology Impression Chest X-Ray 12/27/23 23:05 IMPRESSION: Normal x-ray examination of the chest. Electronically Signed: Weston Patel MD at 23:29 EDT , Hip/Pelvis X-Ray 12/27/23 23:05 IMPRESSION: Acute impacted fracture of the transcervical femoral neck. Electronically Signed: Weston Patel MD at 23:30 EDT , Assessment & Plan Assessment/Plan (1) Fracture of hip, left, closed: PLAN: Natural history of the disease process and treatment options were discussed with the patient as well as her . We discussed open reduction internal fixation/percutaneous pinning, partial hip replacement and total replacement. Based on patient's age and residual joint space on radiographs I did recommend partial replacement as well as appropriate treatment option. Patient demonstrates an understanding of risk including but limited to blood loss, DVTs, PEs, nervous damage, fashion, the risk of anesthesia include loss of life. Fractures intraoperatively as well as postoperatively as well as dislocations and instability are possibility. Patient understands risk of surgery as well as alternatives and does wish to proceed with the recommended partial replacement today. Antibiotics on-call to the operating room. Patient has been optimized for surgery. Additionally, we discussed the patient's falls and she will need to have these addressed postoperatively likely with her rehab. Patient's projected recovery will likely require usp or intensive inpatient rehabilitation prior to discharge back home. (2) Falls: (3) Weakness: (4) Microcytic anemia: (5) Chronic renal failure, stage 3 (moderate): QUALIFIERS: Chronic kidney disease stage 3 subtype: unspecified whether 3a or 3b Qualified Code(s): N18.30 - Chronic kidney disease, stage 3 unspecified
[2023-12-28] MEDS: Cefazolin 2 GM in 0.9% Normal Saline (100mL Bag) 100 ML IV (12:57)
[2023-12-28] MEDS: TRANEXAMIC ACID 2,000 MG, 0.9% Normal Saline (100mL Bag) 100 ML OPERA.SITE (14:07)
[2023-12-28] MEDS: JPS (Morphine 10mg/ml) OPERA.SITE (14:08)
--- NOTE | 2023-12-28 14:21 | PCM.OPRPT ---
Report of Operation Date of Procedure: 12/28/23 Pre-Operative Diagnosis: Left hip displaced femoral neck fracture Post-Operative Diagnosis: Left hip displaced femoral neck fracture Surgery/Procedure Performed:: Left hip hemiarthroplasty, direct anterior Description of Surgical Findings:: Stable hip with equal leg lengths Surgeon: Gabriel Byrd rubber stamp assembler: Vivienne Chester Type of Anesthesia: General Anesthesiologist: Davion Alexander Special Medications: 2 g Ancef, 2 g TXA lavage and wound, 10 mg Decadron, joint cocktail (5 mg Duramorph, 30 mL of 0.5% Ropivicaine, 1000 units of epinephrine, 30 mg of Toradol) Specimen's removed: Bony cuts Estimated Blood Loss (mL): 300 Fluids Replaced: 1000 mL crystalloid Description of Procedure: Components used: 1. Insignia Krypton femoral stem size 3 high offset 2. Krypton cobalt-chromium Unitrax 44mm, 0mm femoral head Brief history operative indications: 78 yo F who presented to the emergency department with displaced femoral neck fracture. Left partial hip replacement was discussed with the patient with risks and benefits including but not limited to blood loss, DVTs, PEs, neurovascular damage, dislocation, general risks of anesthesia including loss of life. Patient demonstrated an understanding medical clearance is obtained the patient was consented for surgery. Procedure: On the date of procedure the patient's L hip was marked in the preoperative area. Patient was then taken back to the operating room where anesthesia assumed control of the C-spine and airway and administered anesthetic. Patient was transferred to the operating table and placed in the supine position. The hips were placed at the break of the bed and a sacral bump was placed. L The lower extremity was then prepped out in a sterile fashion using chlorhexidine while the surgeon scrubbed. The PA was vital in the positioning of the patient. Upon reentering the room the left lower extremity was draped in the standard orthopedic fashion and the incision was marked. A timeout was called and everyone agreed upon the side, the site, the procedure be performed, antibody given, and patient's identity. At this time incision was made through skin, subcutaneous tissue, and fat down to fascia. The fascia was then incised and the TFL was retracted laterally. A retractor was placed on the lateral border of the femoral neck. Attention was directed to the inferior portion of the approach and all crossing vessels were identified and appropriately coagulated. A retractor was then placed on the medial portion of the femoral neck. The anterior capsule was then cleared of all soft tissue and then H shaped capsulotomy was made. The retractors were then placed inside the capsule. The femoral neck was identified and a cleanup cut was made. At this time a power corkscrew was used to remove the femoral head. Attention was then turned toward the acetabulum where the soft tissues were appropriately retracted and the acetabulum was cleared of any residual soft tissue from the ligamentum flavum and bony debris. Attention was then turned to the femur. Soft tissue releases on the medial and lateral femoral neck were appropriately done, the leg was externally rotated and lateralized. A Kong retractor was placed medially and proximally to the greater trochanter this allowed appropriate visualization and exposure of the femoral canal. Rongeour was then used to remove excess lateral bone. A canal finder and entry broach were used to open the proximal canal. Once we verified we were down the femoral canal we subsequently broached up to a size 3 femur. The appropriate neck was placed in the previously selected head was trialed with a 44 mm Unitrax head with 0 mm neck. Traction was pulled and the hip was reduced with internal rotation. Once it was appropriately reduced and stability was checked. There was minimal shuck, equal leg lengths and appropriate stability with hyperextension and external rotation as well as with 90? flexion and internal rotation. Fluoroscopy was then also used to verify the position of the components and leg lengths using the contralateral side for comparison. The trial components were then dislocated the proximal femur was again exposed and the components were removed from the wound. The final components were verified and opened. The wound was copiously irrigated out with normal saline. The acetabulum was checked for any residual debris. The final components were placed and impacted. Traction and internal rotation were again used to reduce the hip. After adequate reduction the hip remained stable with appropriate leg lengths. The final components were once again checked with live fluoroscopy and were found to be satisfactory. The wound was then copiously irrigated with a 3-minute dilute Betadine lavage followed by chlorhexidine lavage followed by TXA lavage followed by normal saline once more, and hemostasis was obtained. Closure was then done using #1 Vicryl runner to close the fascia. A 2-0 vicryl interuppted sutures were used to close the subcutaneous skin. 2-0 nylon interrupted sutures were used for final skin closure. A Silverlon dressing was placed. Patient was awakened by anesthesia and transferred to the [facility]. Patient was then transferred to the PACU for recovery. Postoperative plan: Patient will get 24 hours postop antibiotics. Patient will get in-house physical therapy and will be weight-bear as tolerated. Patient will follow up in office in 2 weeks for a wound check and x-rays. Aspirin 81 mg twice daily. Patient has no history of previous DVT. She is a fall risk based on her history. Complications No intraoperative complications Admit VTE Documentation VTE Present on Admission: No VTE Mechan Device Prophylaxis: SCD's and Thigh High MARIAJOSE Hose VTE Pharm Prophylaxis ordered?: Yes
--- NOTE | 2023-12-28 14:55 | RAD_ITS ---
EXAM: XR LEFT HIP WITH PELVIS WHEN PERFORMED, 2 OR 3 VIEWS CLINICAL INDICATION: Post Op --AP and crosstable lateral of left hip. TECHNIQUE: Two views of the left hip with pelvis. COMPARISON: 12/27/2023. FINDINGS: BONES/JOINTS: Unremarkable. No displaced fracture. No destructive or sclerotic lesions. Note that overlapping bowel shadows may however obscure fine detail. Sacroiliac joint is unremarkable. No widening of the pubic symphysis. Normal alignment of the acetabular component and femoral component of the left metallic hip arthroplasty. SOFT TISSUES: Postoperative soft tissue swelling around the left hip following left metallic hip arthroplasty. RAD/Hip Min 2 Views (Portable) IMPRESSION: Normal postop left hip arthroplasty radiographs following ORIF when compared to 12/27/2023. Electronically Signed: Billy Shirley MD at 15:13 EDT ,
[2023-12-28 15:22] LABS: Bedside Glucose 176 mg/dL (74-106)
--- NOTE | 2023-12-28 15:39 | CHAPLAIN ---
Type of Pastoral Visit ___ Initial Visit ___ Follow-up Visit ___ On-call Visit ___ General Patient Visit ___ Spiritual Assessment ___ Family Conference ___ Bereavement ___ Rapid Response ___ Code Blue ___ Other (describe below) Pastoral Care Referral From ___ Patient ___ Family ___ Nurse ___ Physician ___ Banking Management Consulting Manager ___ Foreign Exchange Student Coordinator ___ Other (describe below) Sacrament/Intervention ___ Active listening ___ Anointing ___ Yazidism ___ Bereavement ___ Communion ___ Kristal exploration ___ ___ Life review ___ Prayer ___ Reconciliation ___ Sacrament of Sick ___ Supportive presence ___ Wedding ___ Other (describe below) Pastoral Comments patient is out of the room; calling card is left
[2023-12-28] MEDS: 0.9% Normal Saline (1000mL) 1,000 ML 75 ML IV (16:18)
[2023-12-28] MEDS: Aspirin 81 MG TAB.CHEW PO (16:18)
[2023-12-28 16:43] LABS: Bedside Glucose 209 mg/dL (74-106)
[2023-12-28] MEDS: Budesonide Respules 0.5 MG/2 ML AMPUL.NEB. INHALATION (19:46)
[2023-12-28] MEDS: Albuterol 2.5 MG/3 ML VIAL.NEB. INHALATION (19:46)
[2023-12-28] MEDS: Cefazolin 1 GM/50 ML BAG IV (20:32)
[2023-12-28] MEDS: Menthol/Lanolin/Calamine/Znox 113 GM Tube 1 APPLIC TOPICAL (22:38)
[2023-12-28] MEDS: Senna/Docusate Sodium 1 Tablet 2 TABLET PO (22:39)
[2023-12-28] MEDS: Pantoprazole Sodium 40 MG Tablet PO (22:39)
[2023-12-28] MEDS: Gabapentin 100 MG Capsule PO (22:39)
[2023-12-28] MEDS: Pravastatin 20 MG Tablet PO (22:39)
[2023-12-29] VITALS (10 sets, daily range): BP systolic 132–185; BP diastolic 55–91; PULSE 76–94; RESP 16–24; TEMP 36.6–37.1; O2SAT 94–99
[2023-12-29 02:33] LABS: Bedside Glucose 438 mg/dL (74-106)
[2023-12-29] MEDS: 0.9% Normal Saline (1000mL) 1,000 ML 75 ML IV (05:01)
[2023-12-29] MEDS: Cefazolin 1 GM/50 ML BAG IV (05:01)
[2023-12-29 06:26] LABS: Absolute Lymphocyte Count 1.18 X10^3/uL (0.83-4.51); Absolute Neutrophil Count 10.1 X10^3/uL (2.0-7.7); Basophil# 0.02 X10^3/uL; Basophil% 0.2 % (0-1); Eosinophil# 0.01 X10^3/uL; Eosinophils% 0.1 % (0-5); Hematocrit 32.5 % (37-47); Hemoglobin 10.1 g/dL (12.0-15.0); Lymphocyte # 1.18 X10^3/ul (0.83-4.51); Lymphocyte % 9.5 % (19-41); Mean Corp Hgb Conc 31.1 g/dL (32-36); Mean Corpuscular Hgb 26.7 pg (27.0-32.0); Mean Platelet Vol. 11.6 fl (6.2-12.0); Monocyte# 1.06 X10^3/uL; Monocyte% 8.5 % (0-10); NRBC Flagged by Analyzer 0 % (0-5); Neutrophil # 10.08 X10^3/uL (2.7-7.7); Neutrophil % 81.1 % (47-70); Platelet Count 184 K/mm3 (150-450); RBC Distribution Width CV 15.7 % (11.6-14.6); RBC Distribution Width SD 48.9 fl (35.1-43.9); Red Blood Count 3.78 M/mm3 (4.2-5.4); White Blood Count 12.4 K/mm3 (4.4-11.0)
[2023-12-29] MEDS: Metoprolol Tartrate 25 MG Tablet PO ×2 (06:37→21:07)
[2023-12-29] MEDS: Acetaminophen 500 MG Tablet 1000 MG PO ×3 (06:37→21:05)
[2023-12-29] MEDS: Insulin Lispro 100 UNIT/ML INSULN.PEN SC ×4 (06:38→21:08)
[2023-12-29 06:45] LABS: Anion Gap 5 (5-15); BUN 25 mg/dL (7-18); BUN/Creat Ratio 20.8 RATIO (10-20); Calcium,Total 10.4 mg/dL (8.5-10.1); Chloride 105 mmol/L (98-107); EST Glomerular Filtration Rate 46 mL/min (>60); Est Glom Filt Rate - Afr Amer 56 mL/min (>60); Estimated Creatinine Clearance 36.01 ml/min; Glucose 263 mg/dL (74-106); Potassium 4.8 mmol/L (3.5-5.1); Sodium Level 135 mmol/L (136-145)
[2023-12-29] MEDS: Budesonide Respules 0.5 MG/2 ML AMPUL.NEB. INHALATION ×2 (07:08→19:17)
[2023-12-29] MEDS: Albuterol 2.5 MG/3 ML VIAL.NEB. INHALATION ×3 (07:08→19:17)
[2023-12-29] MEDS: Magnesium Chloride 64 MG Delay Rel.Tablet 128 MG PO ×2 (09:12→21:05)
[2023-12-29] MEDS: Multivitamins,Therapeutic Tablet 1 TABLET PO (09:14)
[2023-12-29] MEDS: Azelastine HCl NASAL.SRY 1 SPRAY NASAL (09:15)
[2023-12-29] MEDS: Aspirin 81 MG TAB.CHEW PO ×2 (09:16→16:06)
[2023-12-29] MEDS: Famotidine 20 MG Tablet PO (09:16)
[2023-12-29] MEDS: Menthol/Lanolin/Calamine/Znox 113 GM Tube 1 APPLIC TOPICAL ×2 (09:16→21:04)
[2023-12-29] MEDS: Insulin Glargine-YFGN 100 UNIT/ML Pen 15 UNIT SC (09:17)
[2023-12-29] MEDS: Enoxaparin 40 MG/0.4 ML Syringe SC (09:17)
[2023-12-29] MEDS: Senna/Docusate Sodium 1 Tablet 2 TABLET PO ×2 (09:18→21:07)
[2023-12-29] MEDS: Ascorbic Acid 500 MG Tablet 250 MG PO (09:23)
--- NOTE | 2023-12-29 09:29 | PCM.PN.HOSP ---
Reason for Visit Reason for Visit: Diagnoses Iron deficiency anemia, unspecified (12/27/23) Hypercalcemia (12/27/23) Chronic kidney disease, stage 3 unspecified (12/27/23) Weakness (12/27/23) Fracture of unspecified part of neck of left femur, initial encounter for closed fracture (12/27/23) Unspecified fall, initial encounter (12/27/23) Objective Data Objective Data Vital Signs: Vital Signs Temp Pulse Resp BP Pulse Ox O2 Del Method O2 Flow Rate 97.8 F 79 18 185/72 H 99 Nasal Cannula 2 12/29/23 06:25 12/29/23 07:09 12/29/23 07:09 12/29/23 06:37 12/29/23 07:09 12/29/23 07:09 12/29/23 07:09 Oxygen Flow Rate (L/min) 2 Oxygen Delivery Method Nasal Cannula Weight: 157 lb 6.561 oz Body Mass Index (BMI) 27.8 Intake & Output: Intake and Output for Last 24 Hours 12/27/23 12/28/23 12/29/23 23:59 23:59 23:59 Intake Total 1732.50 / 1732.50 1003.75 / 1003.75 Output Total 1850 / 2850 1600 / 1600 Balance -117.50 / -1117.50 -596.25 / -596.25 Lab / Micro Data 12/29/23 05:31 12/29/23 05:31 Labs: Laboratory Results - last 24 hr 12/28/23 04:35: Phosphorus 3.0 12/28/23 11:24: POC Glucose 138 H 12/28/23 15:04: POC Glucose 176 H 12/28/23 16:17: POC Glucose 209 H 12/28/23 22:36: POC Glucose 438 H 12/29/23 05:31: WBC 12.4 H, RBC 3.78 L, Hgb 10.1 L, Hct 32.5 L, MCV 86.0, MCH 26.7 L, MCHC 31.1 L, RDW Std Deviation 48.9 H, RDW Coeff of Vijay 15.7 H, Plt Count 184, MPV 11.6, Immature Gran % (Auto) 0.600, Neut % (Auto) 81.1 H, Lymph % (Auto) 9.5 L, [place] % (Auto) 8.5, Eos % (Auto) 0.1, Baso % (Auto) 0.2, Absolute Neuts (auto) 10.1 H, Absolute Lymphs (auto) 1.18, Nucleated RBC % 0, Sodium 135 L, Potassium 4.8, Chloride 105, Carbon Dioxide 25.0, Anion Gap 5, BUN 25 H, Creatinine 1.20 H, Estim Creat Clear Calc 36.01, Est GFR (MDRD) Af Amer 56 L, Est GFR (MDRD) Non-Af 46 L, BUN/Creatinine Ratio 20.8 H, Glucose 263 H, Calcium 10.4 H Radiography Diagnostic Testing: Radiology Impression Hip/Pelvis X-Ray 12/28/23 12:45 IMPRESSION: Normal postoperative left hip metallic hip arthroplasty when compared to previous pelvis radiograph of 12/19/2023. Electronically Signed: Billy Shirley MD at 14:25 EDT , Hip X-Ray 12/28/23 14:55 IMPRESSION: Normal postop left hip arthroplasty radiographs following ORIF when compared to 12/27/2023. Electronically Signed: Billy Shirley MD at 15:13 EDT , Physical Exam Narrative Seen and examined. She lost the balance and fall on the left hip. She denies history of osteoporosis. She does self-catheterization for history of urine retention but denies history of burning micturition. Patient is small bowel movement, but not adequate. Dulcolax 10 mg oral given Physical exam General: Alert, Oriented x3, Cooperative HEENT: Atraumatic, PERRLA, EOMI, Normocephalic Oral: Oral mucosa moist. No Gingival or Mucosal Lesions/ Ulcerations Neck: Supple, No JVD, Negative Carotid Bruits Chest wall/Lungs: Air entry diminished in bilateral lung bases. No crepitation/rhonchi Cardiovascular: Regular rate, Regular Rhythm, Normal S1, Normal S2, systolic murmur present. Abdomen: Bowel Sounds Present, Soft, Non Tender, Non-Distended : Serna catheter. no dysuria. No renal angle tenderness. No suprapubic tenderness. Extremities: No edema, Capillary Refill Less than 3 Seconds Skin: No rashes, No breakdown Musculoskeletal: Status post left anterior hemiarthroplasty. Surgical dressing is dry. Neurological: Cranial nerves II-XII grossly intact, DTR 2+/4. No acute focal neurological deficit. Psych/Mental Status: Normal Affect, Appropriate. Assessment & Plan Assessment/Plan (1) Fracture of hip, left, closed: (2) Weakness: (3) Hypercalcemia: PLAN: Plan Patient is a 78-year-old female who presented [facility] ED on 12/27/2023 with left hip pain after a fall at home. She got up from the couch to self catheter, got her walker turned and then lost balance and fell on her left hip. 1. Acute debility due to left impacted transcervical femoral neck fracture. ? Admit under inpatient status to [facility]. Orthopedics consulted. N.p.o. at midnight. PT/OT/case management consulted. Pain control with scheduled Tylenol, p.o. oxycodone as needed and IV Dilaudid as needed. 2. Preoperative evaluation ? NSQIP score: Patient has average risk of serious complication, below average risk of any complication given her with factors of age, partially dependent functional status, mild systemic disease, insulin-dependent diabetes and hypertension. ? Labs/imaging: Chest x-ray on admit nonacute. No further imaging or lab workup needed prior to procedure. ? EKG/echo: EKG in ED showed normal sinus rhythm, no ST changes. Appeared similar to last EKG from July. Last echo in 2020 showed normal EF with moderate aortic stenosis. Patient is hemodynamically stable here at rest, denies any chest pain or shortness of breath with exertion recently. No need for repeat echo prior to procedure. ? Medications: Okay to continue home beta-jefe and aspirin on day of procedure. Holding home diltiazem as noted below. Giving reduced dose of long-acting insulin on day of procedure given n.p.o. status. ? Recommendation: Patient is medically optimized for procedure. 12/27: Monitor postop CBC and BMP. Patient denies history of previous joint replacement. Continue incentive spirometry. 12/28: Patient had left anterior hemiarthroplasty. I talked to the patient's cousin over the phone who lives in [facility]. Patient is clinically doing well. Currently has Serna catheter 3. Mild creatinine elevation ? Creatinine 1.19 on admit, baseline creatinine around 0.8-1.0. Suspect due to mild dehydration as other labs appear somewhat hemoconcentrated. Will give 750 cc of IV fluids over 5 hours prior to procedure. Follow-up a.m. BMP and urine output. 12/27: Repeat creatinine 1.14. Improvement in creatinine. Continue IV fluid while NPO. 4. Type 2 diabetes mellitus with hyperglycemia ? Current home regimen of insulin detemir 20 units twice daily, Humalog 5 units with meals, Januvia 50 mg daily, Jardiance 10 mg daily, Trulicity weekly. Most recent A1c 8.2% on 10/24. On chart review, patient was hospitalized in July 2023. Was noted then that she had history of poorly controlled diabetes with very high insulin requirements. 12/27: Lantus 15 units twice daily and Humalog sliding scale insulin with meals while inpatient, adjust as needed. Repeat A1c 9.4%. 12/28: Glucose are high. Lantus insulin increased to 20 twice daily and Humalog scheduled 12 units 3 times daily with meals with holding parameters. 5. Hypercalcemia ? Calcium 11.2 on admit. Known history of mild hypercalcemia, was 10-11 during previous hospitalization in July. PTH was 153 at that time concerning for primary hyperparathyroidism. Plan was for outpatient follow-up for further workup but does not appear this was done. If remains high, would continue to have concern for primary hyperparathyroidism and this could be contributing to calcium withdrawal from bones leading to possible osteopenia versus osteoporosis. recommend close outpatient follow-up with endocrinology. 12/27: PTH 217. Calcium 11.2. Continue IV fluid. 6. COPD ? Not on home O2. Breathing comfortably on room air on arrival here with good saturations, no wheezing noted, no concern for acute exacerbation. Continue home inhalers and roflumilast. 12/27 denies any recent admission for COPD exacerbation 7. Chronic urinary retention with self-catheterization ? UA on admit noninfectious appearing. Given current immobility and plan for procedure, Serna catheter placed in the ED. Recommend voiding trial prior to discharge. 8. Chronic anemia ? Hemoglobin 12.4 on admit, recent baseline around 9-11. Suspect somewhat hemoconcentrated as noted above. 12/27: H&H 11.4/36.5%. 9. Hypertension ? Home regimen listed as Lopressor 25 mg twice daily and diltiazem 180 mg daily. Heart rate in the 80s in the ED, normal sinus rhythm. Unclear why patient is on both a beta-jefe and nondihydropyridine calcium channel jefe. BP elevated to the 150s to 170s on admit but suspect this is in part due to pain. Will continue Lopressor and hold diltiazem for now. 12/28: Blood pressure high systolic 172. Diltiazem resumed.On metoprolol 25 mg twice daily. Hydralazine 10 mg every 4 hourly as needed for SBP more than 180 mmHg 10. GERD ? Stable. Continue home PPI. DVT prophylaxis: Lovenox CODE STATUS: Full code, verified Expected disposition: TBD Charges/Coding Visit Charges Inpatient E&M: 58759 Subs Hosp L2
[2023-12-29 10:11] LABS: Bedside Glucose 222 mg/dL (74-106)
[2023-12-29 11:29] LABS: Bedside Glucose 281 mg/dL (74-106)
--- NOTE | 2023-12-29 11:52 | PCM.PN.ORT ---
Subjective Subjective Patient sitting at bedside watching TV. Patient states she has no pain. She has been up walking around this morning. She denies chest pain, shortness of breath, calf pain, nausea vomiting. No other complaints at this time. Patient is hoping to go to a rehab for postop rehab. Objective Data Objective Data Vital Signs: Vital Signs Temp Pulse Resp BP Pulse Ox O2 Del Method O2 Flow Rate 98.7 F 84 18 172/91 H 96 Room Air 2 12/29/23 10:23 12/29/23 10:23 12/29/23 10:23 12/29/23 10:23 12/29/23 10:23 12/29/23 10:23 12/29/23 07:09 Oxygen Flow Rate (L/min) 2 Oxygen Delivery Method Room Air Weight: 71.4 kg Body Mass Index (BMI) 27.8 Intake & Output: Intake and Output for Last 24 Hours 12/27/23 12/28/23 12/29/23 23:59 23:59 23:59 Intake Total 1732.50 / 1732.50 1003.75 / 1003.75 Output Total 1850 / 2850 2300 / 2300 Balance -117.50 / -1117.50 -1296.25 / -1296.25 Lab / Micro Data 12/29/23 05:31 12/29/23 05:31 Labs: Laboratory Results - last 24 hr 12/28/23 11:24: POC Glucose 138 H 12/28/23 15:04: POC Glucose 176 H 12/28/23 16:17: POC Glucose 209 H 12/28/23 22:36: POC Glucose 438 H 12/29/23 05:31: WBC 12.4 H, RBC 3.78 L, Hgb 10.1 L, Hct 32.5 L, MCV 86.0, MCH 26.7 L, MCHC 31.1 L, RDW Std Deviation 48.9 H, RDW Coeff of Vijay 15.7 H, Plt Count 184, MPV 11.6, Immature Gran % (Auto) 0.600, Neut % (Auto) 81.1 H, Lymph % (Auto) 9.5 L, [place] % (Auto) 8.5, Eos % (Auto) 0.1, Baso % (Auto) 0.2, Absolute Neuts (auto) 10.1 H, Absolute Lymphs (auto) 1.18, Nucleated RBC % 0, Sodium 135 L, Potassium 4.8, Chloride 105, Carbon Dioxide 25.0, Anion Gap 5, BUN 25 H, Creatinine 1.20 H, Estim Creat Clear Calc 36.01, Est GFR (MDRD) Af Amer 56 L, Est GFR (MDRD) Non-Af 46 L, BUN/Creatinine Ratio 20.8 H, Glucose 263 H, Calcium 10.4 H 12/29/23 06:35: POC Glucose 222 H 12/29/23 11:09: POC Glucose 281 H Radiography Diagnostic Testing: Radiology Impression Hip/Pelvis X-Ray 12/28/23 12:45 IMPRESSION: Normal postoperative left hip metallic hip arthroplasty when compared to previous pelvis radiograph of 12/19/2023. Electronically Signed: Billy Shirley MD at 14:25 EDT , Hip X-Ray 12/28/23 14:55 IMPRESSION: Normal postop left hip arthroplasty radiographs following ORIF when compared to 12/27/2023. Electronically Signed: Billy Shirley MD at 15:13 EDT , Physical Exam Narrative Exam, I found patient sitting at bedside alert oriented. Patient watching TV. Patient has no respiratory distress speaking in full sentences. Full range of motion the upper extremities. The dressing of the left hip is clean dry intact. Patient has good flexion-extension of bilateral knees. No calf tenderness. Neurovascular is otherwise intact to lower extremities. Const alert and oriented x3 General Appearance: cooperative HEENT normocephalic Eyes PERRL Resp normal respiratory effort Effort and Inspection: able to speak in complete sentences Extremity normal capillary refill Neuro CN's II-XII intact bilaterally Psych mental status grossly normal Assessment & Plan Assessment/Plan (1) Fracture of hip, left, closed: PLAN: 1. Continue all pain medications as prescribed 2. Aspirin 81 mg 1 p.o. every 12 hours x 30 days for postop DVT prophylaxis 3. Encourage incentive spirometry 4. Continue ice to the left hip, SCDs and MARIAJOSE hose 5. Ambulate as tolerated full weightbearing with walker 6. Patient to follow-up with Dr. Byrd in 2 weeks 7. Suture removal in 12 days 8. Patient can shower 12/31/2023 9. Discharge admit to ECF when cleared by medicine and approved by insurance
[2023-12-29] MEDS: Insulin Glargine-YFGN 100 UNIT/ML Pen SC (12:54)
[2023-12-29] MEDS: Insulin Lispro 100 UNIT/ML INSULN.PEN 12 UNIT SC ×2 (12:55→16:23)
--- NOTE | 2023-12-29 14:30 | CASEMGMT ---
Social Work- A list of SNF providers including quality and resource use data and consistent with the patient?s preferred geographic region, medical needs, and insurance network were provided from the [employer] Guide. SW also provided pt with a list of financial resources for [employer], [employer], and the [employer] card to assist with medical and medication expenses per conversation with pt where pt expressed concern. Pt was also given [facility] patient financial assistance information. Pt was concerned about the cost of rehab, but was agreeable to looking over the list. Pt initially expressed interest in [facility], but will discuss list with son and spouse and update MILE. TANIA Elizabeth
--- NOTE | 2023-12-29 16:03 | CHAPLAIN ---
Type of Pastoral Visit _x__ Initial Visit ___ Follow-up Visit ___ On-call Visit ___ General Patient Visit ___ Spiritual Assessment ___ Family Conference ___ Bereavement ___ Rapid Response ___ Code Blue ___ Other (describe below) Pastoral Care Referral From _x__ Patient ___ Family ___ Nurse ___ Physician ___ Chainstitch Tunnel Elastic Operator ___ Energy Administrator ___ Other (describe below) Sacrament/Intervention _x__ Active listening ___ Anointing ___ Islam ___ Bereavement ___ Communion _x__ Kristal exploration ___ _x__ Life review _x__ Prayer ___ Reconciliation ___ Sacrament of Sick _x__ Supportive presence ___ Wedding ___ Other (describe below) Pastoral Comments patient is happy to talk with the sewage plant operator and changes her plans about going back to bed at this time; pt is talkative and speaks of her situation, her family, the decline of health for her spouse, and wondering what she will need to do next in recovery; pt identifies as a person of kristal and has support; pt welcomes prayer and presence
[2023-12-29] MEDS: LINAGLIPTIN 5 MG TABLET PO (16:04)
[2023-12-29] MEDS: Empagliflozin 10 MG Tablet PO (16:05)
[2023-12-29] MEDS: dilTIAZem CD 180 MG Capsule PO (16:05)
[2023-12-29 16:41] LABS: Bedside Glucose 198 mg/dL (74-106)
[2023-12-29] MEDS: oxyCODONE 5 MG Tablet PO (18:37)
[2023-12-29] MEDS: Insulin Glargine-YFGN 100 UNIT/ML Pen 20 UNIT SC (21:05)
[2023-12-29] MEDS: Gabapentin 100 MG Capsule PO (21:05)
[2023-12-29] MEDS: Pantoprazole Sodium 40 MG Tablet PO (21:06)
[2023-12-29] MEDS: Pravastatin 20 MG Tablet PO (21:07)
[2023-12-29 22:24] LABS: Bedside Glucose 170 mg/dL (74-106)
[2023-12-30] VITALS (8 sets, daily range): BP systolic 124–197; BP diastolic 50–66; PULSE 71–110; RESP 16–18; TEMP 37.1–37.3; O2SAT 92–97
[2023-12-30] MEDS: hydrALAZINE 20 MG/ML Vial 10 MG IV (05:24)
[2023-12-30] MEDS: Acetaminophen 500 MG Tablet 1000 MG PO ×2 (05:24→13:53)
[2023-12-30 06:38] LABS: Absolute Lymphocyte Count 2.48 X10^3/uL (0.83-4.51); Absolute Neutrophil Count 6.3 X10^3/uL (2.0-7.7); Basophil# 0.03 X10^3/uL; Basophil% 0.3 % (0-1); Eosinophil# 0.14 X10^3/uL; Eosinophils% 1.4 % (0-5); Hematocrit 33.8 % (37-47); Hemoglobin 10.7 g/dL (12.0-15.0); Lymphocyte # 2.48 X10^3/ul (0.83-4.51); Lymphocyte % 25.3 % (19-41); Mean Corp Hgb Conc 31.7 g/dL (32-36); Mean Corpuscular Hgb 26.9 pg (27.0-32.0); Mean Corpuscular Volume 84.9 fL (81-99); Mean Platelet Vol. 11.3 fl (6.2-12.0); Monocyte# 0.85 X10^3/uL; Monocyte% 8.7 % (0-10); NRBC Flagged by Analyzer 0 % (0-5); Neutrophil # 6.27 X10^3/uL (2.7-7.7); Neutrophil % 63.9 % (47-70); Platelet Count 191 K/mm3 (150-450); RBC Distribution Width CV 15.5 % (11.6-14.6); RBC Distribution Width SD 47.9 fl (35.1-43.9); Red Blood Count 3.98 M/mm3 (4.2-5.4); White Blood Count 9.8 K/mm3 (4.4-11.0)
[2023-12-30 07:09] LABS: Anion Gap 4 (5-15); BUN 23 mg/dL (7-18); BUN/Creat Ratio 21.3 RATIO (10-20); Calcium,Total 11.3 mg/dL (8.5-10.1); Chloride 104 mmol/L (98-107); Creatinine, Serum 1.08 mg/dL (0.55-1.02); EST Glomerular Filtration Rate 52 mL/min (>60); Est Glom Filt Rate - Afr Amer 63 mL/min (>60); Estimated Creatinine Clearance 40.01 ml/min; Glucose 127 mg/dL (74-106); Potassium 4.4 mmol/L (3.5-5.1); Sodium Level 135 mmol/L (136-145)
[2023-12-30] MEDS: Albuterol 2.5 MG/3 ML VIAL.NEB. INHALATION ×2 (07:12→12:46)
[2023-12-30] MEDS: Budesonide Respules 0.5 MG/2 ML AMPUL.NEB. INHALATION (07:12)
[2023-12-30 08:22] LABS: Bedside Glucose 129 mg/dL (74-106)
[2023-12-30] MEDS: Insulin Lispro 100 UNIT/ML INSULN.PEN 12 UNIT SC (09:13)
[2023-12-30] MEDS: Aspirin 81 MG TAB.CHEW PO (09:14)
[2023-12-30] MEDS: Azelastine HCl NASAL.SRY 1 SPRAY NASAL (09:14)
[2023-12-30] MEDS: Multivitamins,Therapeutic Tablet 1 TABLET PO (09:14)
[2023-12-30] MEDS: dilTIAZem CD 180 MG Capsule PO (09:15)
[2023-12-30] MEDS: Menthol/Lanolin/Calamine/Znox 113 GM Tube 1 APPLIC TOPICAL (09:15)
[2023-12-30] MEDS: Insulin Glargine-YFGN 100 UNIT/ML Pen 20 UNIT SC (09:15)
[2023-12-30] MEDS: Magnesium Chloride 64 MG Delay Rel.Tablet 128 MG PO (09:16)
[2023-12-30] MEDS: Enoxaparin 40 MG/0.4 ML Syringe SC (09:16)
[2023-12-30] MEDS: Metoprolol Tartrate 25 MG Tablet PO (09:16)
[2023-12-30] MEDS: Empagliflozin 10 MG Tablet PO (09:16)
[2023-12-30] MEDS: Polyethylene Glycol 3350 17 GM PACKET PO (09:16)
[2023-12-30] MEDS: Senna/Docusate Sodium 1 Tablet 2 TABLET PO (09:17)
[2023-12-30] MEDS: Ascorbic Acid 500 MG Tablet 250 MG PO (09:17)
[2023-12-30] MEDS: Famotidine 20 MG Tablet PO (09:17)
[2023-12-30] MEDS: LINAGLIPTIN 5 MG TABLET PO (09:17)
[2023-12-30] MEDS: Ondansetron 4 MG/2 ML Vial IV (09:31)
[2023-12-30] MEDS: oxyCODONE 5 MG Tablet PO (09:31)
--- NOTE | 2023-12-30 10:34 | CASEMGMT ---
Social Work- SW met with pt to review the list of facilities provided yesterday. Preferences are: [facility], [facility], [facility] (in order). SW sent referral to TCU. Plan: TCU; pending acceptance TANIA Elizabeth
--- NOTE | 2023-12-30 12:15 | CASEMGMT ---
Social Work- TCU accepted and will start precert. Pt notifed and aware that family will need to bring [employer] and [employer] and is agreeable. Plan: TCU; pending precert TANIA Munoz
[2023-12-30 12:23] LABS: Bedside Glucose 78 mg/dL (74-106)
--- NOTE | 2023-12-30 12:28 | PCM.PN.HOSP ---
Reason for Visit Reason for Visit: Diagnoses Iron deficiency anemia, unspecified (12/27/23) Hypercalcemia (12/27/23) Chronic kidney disease, stage 3 unspecified (12/27/23) Weakness (12/27/23) Fracture of unspecified part of neck of left femur, initial encounter for closed fracture (12/27/23) Unspecified fall, initial encounter (12/27/23) Objective Data Objective Data Vital Signs: Vital Signs Temp Pulse Resp BP Pulse Ox O2 Del Method O2 Flow Rate 99.2 F H 91 16 124/50 H 97 Room Air 2 12/30/23 10:02 12/30/23 10:02 12/30/23 10:02 12/30/23 10:02 12/30/23 10:02 12/30/23 10:02 12/29/23 07:09 Oxygen Flow Rate (L/min) 2 Oxygen Delivery Method Room Air Weight: 157 lb 6.561 oz Body Mass Index (BMI) 27.8 Intake & Output: Intake and Output for Last 24 Hours 12/28/23 12/29/23 12/30/23 23:59 23:59 23:59 Intake Total 1732.50 / 1732.50 2003.75 / 2002.75 700 / 700 Output Total 1850 / 2850 2300 / 2300 1450 / 1450 Balance -117.50 / -1117.50 -296.25 / -296.25 -750 / -750 Lab / Micro Data 12/30/23 06:02 12/30/23 06:02 Labs: Laboratory Results - last 24 hr 12/29/23 16:21: POC Glucose 198 H 12/29/23 21:03: POC Glucose 170 H 12/30/23 06:02: WBC 9.8, RBC 3.98 L, Hgb 10.7 L, Hct 33.8 L, MCV 84.9, MCH 26.9 L, MCHC 31.7 L, RDW Std Deviation 47.9 H, RDW Coeff of Vijay 15.5 H, Plt Count 191, MPV 11.3, Immature Gran % (Auto) 0.400, Neut % (Auto) 63.9, Lymph % (Auto) 25.3, [place] % (Auto) 8.7, Eos % (Auto) 1.4, Baso % (Auto) 0.3, Absolute Neuts (auto) 6.3, Absolute Lymphs (auto) 2.48, Nucleated RBC % 0, Sodium 135 L, Potassium 4.4, Chloride 104, Carbon Dioxide 27.0, Anion Gap 4 L, BUN 23 H, Creatinine 1.08 H, Estim Creat Clear Calc 40.01, Est GFR (MDRD) Af Amer 63, Est GFR (MDRD) Non-Af 52 L, BUN/Creatinine Ratio 21.3 H, Glucose 127 H, Calcium 11.3 H 12/30/23 08:06: POC Glucose 129 H 12/30/23 12:04: POC Glucose 78 Physical Exam Narrative Seen and examined. Patient had soft, small volume bowel movement yesterday. Dulcolax suppository ordered She lost the balance and fall on the left hip. She denies history of osteoporosis. She does self-catheterization for history of urine retention but denies history of burning micturition. Patient is small bowel movement, but not adequate. Physical exam General: Alert, Oriented x3, Cooperative HEENT: Atraumatic, PERRLA, EOMI, Normocephalic Oral: Oral mucosa moist. No Gingival or Mucosal Lesions/ Ulcerations Neck: Supple, No JVD, Negative Carotid Bruits Chest wall/Lungs: Air entry diminished in bilateral lung bases. No crepitation/rhonchi Cardiovascular: Regular rate, Regular Rhythm, Normal S1, Normal S2, systolic murmur present. Abdomen: Bowel Sounds Present, Soft, Non Tender, Non-Distended : Serna catheter. no dysuria. No renal angle tenderness. No suprapubic tenderness. Extremities: No edema, Capillary Refill Less than 3 Seconds Skin: No rashes, No breakdown Musculoskeletal: Status post left anterior hemiarthroplasty. Surgical dressing is dry. Neurological: Cranial nerves II-XII grossly intact, DTR 2+/4. No acute focal neurological deficit. Psych/Mental Status: Normal Affect, Appropriate. Assessment & Plan Assessment/Plan (1) Fracture of hip, left, closed: (2) Weakness: (3) Hypercalcemia: PLAN: Plan Patient is a 78-year-old female who presented [facility] ED on 12/27/2023 with left hip pain after a fall at home. She got up from the couch to self catheter, got her walker turned and then lost balance and fell on her left hip. 1. Acute debility due to left impacted transcervical femoral neck fracture. ? Admit under inpatient status to [facility]. Orthopedics consulted. N.p.o. at midnight. PT/OT/case management consulted. Pain control with scheduled Tylenol, p.o. oxycodone as needed and IV Dilaudid as needed. 12/29: Waiting for pre-CERT. 2. Preoperative evaluation ? NSQIP score: Patient has average risk of serious complication, below average risk of any complication given her with factors of age, partially dependent functional status, mild systemic disease, insulin-dependent diabetes and hypertension. ? Labs/imaging: Chest x-ray on admit nonacute. No further imaging or lab workup needed prior to procedure. ? EKG/echo: EKG in ED showed normal sinus rhythm, no ST changes. Appeared similar to last EKG from July. Last echo in 2020 showed normal EF with moderate aortic stenosis. Patient is hemodynamically stable here at rest, denies any chest pain or shortness of breath with exertion recently. No need for repeat echo prior to procedure. ? Medications: Okay to continue home beta-jefe and aspirin on day of procedure. Holding home diltiazem as noted below. Giving reduced dose of long-acting insulin on day of procedure given n.p.o. status. ? Recommendation: Patient is medically optimized for procedure. 12/27: Monitor postop CBC and BMP. Patient denies history of previous joint replacement. Continue incentive spirometry. 12/28: Patient had left anterior hemiarthroplasty. I talked to the patient's cousin over the phone who lives in [facility]. Patient is clinically doing well. Currently has Serna catheter 12/29: Dulcolax suppository ordered. Patient with small bowel movement. On senna S and MiraLAX. 3. Mild creatinine elevation ? Creatinine 1.19 on admit, baseline creatinine around 0.8-1.0. Suspect due to mild dehydration as other labs appear somewhat hemoconcentrated. Will give 750 cc of IV fluids over 5 hours prior to procedure. Follow-up a.m. BMP and urine output. 12/27: Repeat creatinine 1.14. Improvement in creatinine. Continue IV fluid while NPO. 12/29: Last creatinine 1.08. LIA ruled out. 4. Type 2 diabetes mellitus with hyperglycemia ? Current home regimen of insulin detemir 20 units twice daily, Humalog 5 units with meals, Januvia 50 mg daily, Jardiance 10 mg daily, Trulicity weekly. Most recent A1c 8.2% on 10/24. On chart review, patient was hospitalized in July 2023. Was noted then that she had history of poorly controlled diabetes with very high insulin requirements. 12/27: Lantus 15 units twice daily and Humalog sliding scale insulin with meals while inpatient, adjust as needed. Repeat A1c 9.4%. 12/28: Glucose are high. Lantus insulin increased to 20 twice daily and Humalog scheduled 12 units 3 times daily with meals with holding parameters. 01/09: Glucose is better. 127 in BMP. 87 in noontime therefore Lantus insulin and Humalog insulin decreased. No hypoglycemia. 5. Hypercalcemia ? Calcium 11.2 on admit. Known history of mild hypercalcemia, was 10-11 during previous hospitalization in July. PTH was 153 at that time concerning for primary hyperparathyroidism. Plan was for outpatient follow-up for further workup but does not appear this was done. If remains high, would continue to have concern for primary hyperparathyroidism and this could be contributing to calcium withdrawal from bones leading to possible osteopenia versus osteoporosis. recommend close outpatient follow-up with endocrinology. 12/27: PTH 217. Calcium 11.2. Continue IV fluid. 6. COPD ? Not on home O2. Breathing comfortably on room air on arrival here with good saturations, no wheezing noted, no concern for acute exacerbation. Continue home inhalers and roflumilast. 12/27 denies any recent admission for COPD exacerbation 7. Chronic urinary retention with self-catheterization ? UA on admit noninfectious appearing. Given current immobility and plan for procedure, Serna catheter placed in the ED. Recommend voiding trial prior to discharge. 8. Chronic anemia ? Hemoglobin 12.4 on admit, recent baseline around 9-11. Suspect somewhat hemoconcentrated as noted above. 12/27: H&H 11.4/36.5%. 9. Hypertension ? Home regimen listed as Lopressor 25 mg twice daily and diltiazem 180 mg daily. Heart rate in the 80s in the ED, normal sinus rhythm. Unclear why patient is on both a beta-jefe and nondihydropyridine calcium channel jefe. BP elevated to the 150s to 170s on admit but suspect this is in part due to pain. Will continue Lopressor and hold diltiazem for now. 12/28: Blood pressure high systolic 172. Diltiazem resumed.On metoprolol 25 mg twice daily. Hydralazine 10 mg every 4 hourly as needed for SBP more than 180 mmHg 10. GERD ? Stable. Continue home PPI. DVT prophylaxis: Lovenox CODE STATUS: Full code, verified Expected disposition: TBD Charges/Coding Visit Charges Inpatient E&M: 21805 Subs Hosp L2
--- NOTE | 2023-12-30 14:05 | TREXTCAR_ITS ---
Diet Diet Order/Speech Therapy: 12/28/23 17:34 Carb [Diet: Carbohydrate Controlled] Type of Dietary Supplement:: Ensure Surgery Is pt able to select menu?: Yes Routine Orders/Code Status Suppository Type: Dulcolax 10mg Suppository Frequency: Daily PRN Code Status: Full Code Wound(s) R buttock: Wound Type: Pressure Injury left hip: Wound Type: Surgical Incision Therapies Weight Bearing: Weight bearing as tolerated Extremity Affected:: Bilateral Lower Physical Therapy: Eval and Treat Occupational Therapy: Eval and Treat Speech Therapy: Eval and Treat Problem/Diagnosis (1) Fracture of hip, left, closed: Status: Acute Code(s): S72.002A - Fracture of unspecified part of neck of left femur, initial encounter for closed fracture (2) Weakness: Status: Acute Code(s): R53.1 - Weakness (3) Hypercalcemia: Status: Chronic Code(s): E83.52 - Hypercalcemia Plan Patient is a 78-year-old female who presented [facility] ED on 12/27/2023 with left hip pain after a fall at home. She got up from the couch to self catheter, got her walker turned and then lost balance and fell on her left hip. 1. Acute debility due to left impacted transcervical femoral neck fracture. ? Admit under inpatient status to [facility]. Orthopedics consulted. N.p.o. at midnight. PT/OT/case management consulted. Pain control with scheduled Tylenol, p.o. oxycodone as needed and IV Dilaudid as needed. 12/29: Waiting for pre-CERT. 2. Preoperative evaluation ? NSQIP score: Patient has average risk of serious complication, below average risk of any complication given her with factors of age, partially dependent functional status, mild systemic disease, insulin-dependent diabetes and hypertension. ? Labs/imaging: Chest x-ray on admit nonacute. No further imaging or lab workup needed prior to procedure. ? EKG/echo: EKG in ED showed normal sinus rhythm, no ST changes. Appeared similar to last EKG from July. Last echo in 2020 showed normal EF with moderate aortic stenosis. Patient is hemodynamically stable here at rest, de nies any chest pain or shortness of breath with exertion recently. No need for repeat echo prior to procedure. ? Medications: Okay to continue home beta-jefe and aspirin on day of procedure. Holding home diltiazem as noted below. Giving reduced dose of long- acting insulin on day of procedure given n.p.o. status. ? Recommendation: Patient is medically optimized for procedure. 12/27: Monitor postop CBC and BMP. Patient denies history of previous joint replacement. Continue incentive spirometry. 12/28: Patient had left anterior hemiarthroplasty. I talked to the patient's cousin over the phone who lives in [facility]. Patient is clinically doing well. Currently has Serna catheter 12/29: Dulcolax suppository ordered. Patient with small bowel movement. On senna S and MiraLAX. 3. Mild creatinine elevation ? Creatinine 1.19 on admit, baseline creatinine around 0.8-1.0. Suspect due to mild dehydration as other labs appear somewhat hemoconcentrated. Will give 750 cc of IV fluids over 5 hours prior to procedure. Follow-up a.m. BMP and urine output. 12/27: Repeat creatinine 1.14. Improvement in creatinine. Continue IV fluid while NPO. 12/29: Last creatinine 1.08. LIA ruled out. 4. Type 2 diabetes mellitus with hyperglycemia ? Current home regimen of insulin detemir 20 units twice daily, Humalog 5 units with meals, Januvia 50 mg daily, Jardiance 10 mg daily, Trulicity weekly. Most recent A1c 8.2% on 10/24. On chart review, patient was hospitalized in July 2023. Was noted then that she had history of poorly controlled diabetes with very high insulin requirements. 12/27: Lantus 15 units twice daily and Humalog sliding scale insulin with meals while inpatient, adjust as needed. Repeat A1c 9.4%. 12/28: Glucose are high. Lantus insulin increased to 20 twice daily and Humalog scheduled 12 units 3 times daily with meals with holding parameters. 01/09: Glucose is better. 127 in BMP. 87 in noontime therefore Lantus insulin and Humalog insulin decreased. No hypoglycemia. 5. Hypercalcemia ? Calcium 11.2 on admit. Known history of mild hypercalcemia, was 10-11 during previous hospitalization in July. PTH was 153 at that time concerning for primary hyperparathyroidism. Plan was for outpatient follow-up for further workup but does not appear this was done. If remains high, would continue to have concern for primary hyperparathyroidism and this could be contributing to calcium withdrawal from bones leading to possible osteopenia versus osteoporosis. recommend close outpatient follow-up with endocrinology. 12/27: PTH 217. Calcium 11.2. Continue IV fluid. 6. COPD ? Not on home O2. Breathing comfortably on room air on arrival here with good saturations, no wheezing noted, no concern for acute exacerbation. Continue home inhalers and roflumilast. 12/27 denies any recent admission for COPD exacerbation 7. Chronic urinary retention with self-catheterization ? UA on admit noninfectious appearing. Given current immobility and plan for procedure, Serna catheter placed in the ED. Recommend voiding trial prior to discharge. 8. Chronic anemia ? Hemoglobin 12.4 on admit, recent baseline around 9-11. Suspect somewhat hemoconcentrated as noted above. 12/27: H&H 11.4/36.5%. 9. Hypertension ? Home regimen listed as Lopressor 25 mg twice daily and diltiazem 180 mg daily. Heart rate in the 80s in the ED, normal sinus rhythm. Unclear why patient is on both a beta-jefe and nondihydropyridine calcium channel jefe. BP elevated to the 150s to 170s on admit but suspect this is in part due to pain. Will continue Lopressor and hold diltiazem for now. 12/28: Blood pressure high systolic 172. Diltiazem resumed.On metoprolol 25 mg twice daily. Hydralazine 10 mg every 4 hourly as needed for SBP more than 180 mmHg 10. GERD ? Stable. Continue home PPI. DVT prophylaxis: Lovenox CODE STATUS: Full code, verified Expected disposition: TBD Allergies/Procedures Done in Hospital Allergies adhesive tape [tape] Allergy (Verified 12/27/23 22:08) NEEDS FOLLOW-UP CLOTH TAPE amoxicillin Allergy (Verified 12/27/23 22:08) YEAST INFECTION cephalexin monohydrate [From Keflex] Allergy (Verified 12/27/23 22:08) Rash clopidogrel bisulfate [From Plavix] Allergy (Verified 12/27/23 22:08) Other Type of Care/Length of Stay Estimated LOS: Convalescent Care Less Than 30 days Type of Care Needed: Skilled Rehab Potential: Good Prognosis: Good Additional Orders/Day of Discharge Day of Discharge: 12/30/23 Discharge Plan Admission Admit Date/Time: 12/27/23 23:32 Primary Reason for Your Visit: Left hip transcervical fracture Attending Provider: Sunny Bell Primary Care Provider: Ramone Smiley Consulting Providers: Gabriel Byrd; Nestor Bartlett Discharge Orders/Prescriptions Prescriptions: New sennosides-docusate sodium [Stool Softener-Stimulant Laxat] 8.6-50 mg Tablet 2 tab PO BID Qty: 0 0RF Rx Instructions: Hold if more than 1 bowel movement per day oxycodone 5 mg Tablet 2.5 mg PO Q4H PRN PRN (Reason: Pain Score 4-10) 3 Days Qty: 0 0RF Rx Instructions: Oxycodone 2.5 mg for moderate pain and 5 mg for severe pain respectively. insulin lispro [Humalog KwikPen Insulin] 100 unit/mL Insulin Pen See Protocol subcut ACHS Qty: 0 0RF Protocol: 4. Sliding Scale Insulin High-Med Dosing Condition: 150-199 mg/dl = 2 units Condition: 200-259 mg/dl = 4 units Condition: 260-324 mg/dl = 6 units Condition: 325-374 mg/dl = 8 units Condition: 375-409 mg/dl = 10 units Condition: 410-449 mg/dl = 11 units Condition: Greater than 449 call physician Protocol Text: - Use for Total Daily Dose of Insulin 56-80 units - Patient who are insulin resistant or septic HIGH MEDIUM DOSING ALGORITHM insulin lispro [Humalog KwikPen Insulin] 100 unit/mL Insulin Pen 8 unit subcut TIDAC Qty: 0 0RF Rx Instructions: Hold if glucose less than 130 mg/dl acetaminophen 500 mg Tablet 1,000 mg PO Q8 Qty: 0 0RF bisacodyl 10 mg Suppository 10 mg [place] DAILY Qty: 0 0RF insulin glargine-yfgn 100 unit/mL (3 mL) Insulin Pen 15 unit subcut BID Qty: 0 0RF Rx Instructions: Hold if glucose less than 130 mg/dl Eliquis 2.5 mg tablet 2.5 mg PO BID 30 Days Qty: 60 0RF Rx Instructions: Post hip replacement DVT prophylaxis polyethylene glycol 3350 [Miralax] 17 gram/dose powder 17 g PO DAILY Qty: 238 0RF Continued Januvia 50 mg tablet 50 mg PO DAILY Jardiance 10 mg tablet 10 mg PO DAILY multivitamin Tablet 1 tab PO DAILY pravastatin 20 mg tablet 20 mg PO DAILY budesonide-formoterol [Symbicort] 160-4.5 mcg/actuation HFA aerosol inhaler 2 puff inhalation BID metoprolol tartrate 25 MG tablet 25 mg PO BID magnesium oxide 400 MG tablet 400 mg PO BID diltiazem HCl 180 MG tablet extended release 24 hr 180 mg PO DAILY albuterol sulfate 1 INHALER inhaler 2 puff INHALATION Q4H PRN (Reason: Sob &/Or Wheezing) pantoprazole 40 MG tablet 40 mg PO QHS gabapentin 100 mg capsule 100 mg PO QHS roflumilast 500 mcg tablet 500 mcg PO DAILY Trulicity 0.75 mg/0.5 mL pen injector 0.75 mg subcut MO Hold Instructions: MD Ordered cod liver oil Capsule 1 cap PO DAILY ascorbic acid (vitamin C) [Vitamin C] 250 mg tablet 250 mg PO DAILY azelastine 137 mcg (0.1 %) aerosol,spray 137 mcg intranasal BID Held aspirin 81 MG tablet,chewable 81 mg PO DAILY Hold Instructions: Hold while patient is on Eliquis. Discontinued fiber Capsule 1 cap PO DAILY insulin aspart U-100 100 UNIT/ML solution 5 unit subcut BIDCM Qty: 10 0RF insulin detemir U-100 100 UNITS/ML insulin pen 20 unit SC BIDCM Qty: 15 0RF Rx Instructions: . Referrals / Follow Up: Ramone Smiley MD [Primary Care Provider] - Gabriel Byrd MD [Med Staff - Active Staff] - Within 2 Weeks Disposition Disposition (needs filled in before D/C Order can be placed): [facility]
--- NOTE | 2023-12-30 14:14 | DS.PCM_ITS ---
Providers Date of Admission: 12/27/23 Date of Discharge: 12/30/23 Primary Care Physician: Dr. Ramone Smiley MD Consultations 12/28/23 00:19 Consult: Orthopedics Routine Consulting Provider: Gabriel Byrd Reason for Consult: left hip fracture EMERGENT Consult: No MD Notified: Yes Date Notified: 12/27/23 Time Notified: 23:36 Method of Notification: ED Physician Initiated Reason For Visit: LEFT HIP FRACTURE Diagnosis Discharge Diagnosis (1) Fracture of hip, left, closed: Status: Acute Code(s): S72.002A - Fracture of unspecified part of neck of left femur, initial encounter for closed fracture (2) Weakness: Status: Acute Code(s): R53.1 - Weakness (3) Hypercalcemia: Status: Chronic Code(s): E83.52 - Hypercalcemia Plan Patient is a 78-year-old female who presented [facility] ED on 12/27/2023 with left hip pain after a fall at home. She got up from the couch to self catheter, got her walker turned and then lost balance and fell on her left hip. 1. Acute debility due to left impacted transcervical femoral neck fracture. ? Admit under inpatient status to [facility]. Orthopedics consulted. N.p.o. at midnight. PT/OT/case management consulted. Pain control with scheduled Tylenol, p.o. oxycodone as needed and IV Dilaudid as needed. 12/29: Waiting for pre-CERT. 2. Preoperative evaluation ? NSQIP score: Patient has average risk of serious complication, below average risk of any complication given her with factors of age, partially dependent functional status, mild systemic disease, insulin-dependent diabetes and hypertension. ? Labs/imaging: Chest x-ray on admit nonacute. No further imaging or lab workup needed prior to procedure. ? EKG/echo: EKG in ED showed normal sinus rhythm, no ST changes. Appeared similar to last EKG from July. Last echo in 2020 showed normal EF with moderate aortic stenosis. Patient is hemodynamically stable here at rest, denies any chest pain or shortness of breath with exertion recently. No need for repeat echo prior to procedure. ? Medications: Okay to continue home beta-jefe and aspirin on day of proc edure. Holding home diltiazem as noted below. Giving reduced dose of long- acting insulin on day of procedure given n.p.o. status. ? Recommendation: Patient is medically optimized for procedure. 12/27: Monitor postop CBC and BMP. Patient denies history of previous joint replacement. Continue incentive spirometry. 12/28: Patient had left anterior hemiarthroplasty. I talked to the patient's cousin over the phone who lives [facility]. Patient is clinically doing well. Currently has Serna catheter 12/29: Patient got in afternoon. Patient is being discharged to TCU. Dulcolax s uppository ordered. Patient with small bowel movement. On senna S and MiraLAX. Discharged on Eliquis 2.5 mg twice daily for 1 month for DVT prophylaxis. Hold baby aspirin while patient is on Eliquis. 3. Mild creatinine elevation ? Creatinine 1.19 on admit, baseline creatinine around 0.8-1.0. Suspect due to mild dehydration as other labs appear somewhat hemoconcentrated. Will give 750 cc of IV fluids over 5 hours prior to procedure. Follow-up a.m. BMP and urine output. 12/27: Repeat creatinine 1.14. Improvement in creatinine. Continue IV fluid while NPO. 12/29: Last creatinine 1.08. LIA ruled out. 4. Type 2 diabetes mellitus with hyperglycemia ? Current home regimen of insulin detemir 20 units twice daily, Humalog 5 units with meals, Januvia 50 mg daily, Jardiance 10 mg daily, Trulicity weekly. Most recent A1c 8.2% on 10/24. On chart review, patient was hospitalized in July 2023. Was noted then that she had history of poorly controlled diabetes with very high insulin requirements. 12/27: Lantus 15 units twice daily and Humalog sliding scale insulin with meals while inpatient, adjust as needed. Repeat A1c 9.4%. 12/28: Glucose are high. Lantus insulin increased to 20 twice daily and Humalog scheduled 12 units 3 times daily with meals with holding parameters. 01/09: Glucose is better. 127 in BMP. 87 in noontime therefore Lantus insulin and Humalog insulin decreased. No hypoglycemia. Discharged on Humalog insulin and Lantus insulin with holding parameters. Continue Accu-Chek before meals and at bedtime insulin coverage Humalog sliding scale. 5. Hypercalcemia ? Calcium 11.2 on admit. Known history of mild hypercalcemia, was 10-11 during previous hospitalization in July. PTH was 153 at that time concerning for primary hyperparathyroidism. Plan was for outpatient follow-up for further workup but does not appear this was done. If remains high, would continue to have concern for primary hyperparathyroidism and this could be contributing to c alcium withdrawal from bones leading to possible osteopenia versus osteoporosis. recommend close outpatient follow-up with endocrinology. 12/27: PTH 217. Calcium 11.2. Continue IV fluid. 6. COPD ? Not on home O2. Breathing comfortably on room air on arrival here with good saturations, no wheezing noted, no concern for acute exacerbation. Continue home inhalers and roflumilast. 12/27 denies any recent admission for COPD exacerbation 7. Chronic urinary retention with self-catheterization ? UA on admit noninfectious appearing. Given current immobility and plan for procedure, Serna catheter placed in the ED. Recommend voiding trial prior to discharge. 8. Chronic anemia ? Hemoglobin 12.4 on admit, recent baseline around 9-11. Suspect somewhat hemoconcentrated as noted above. 12/27: H&H 11.4/36.5%. 9. Hypertension ? Home regimen listed as Lopressor 25 mg twice daily and diltiazem 180 mg daily. Heart rate in the 80s in the ED, normal sinus rhythm. Unclear why patient is on both a beta-jefe and nondihydropyridine calcium channel jefe. BP elevated to the 150s to 170s on admit but suspect this is in part due to pain. Will continue Lopressor and hold diltiazem for now. 12/28: Blood pressure high systolic 172. Diltiazem resumed.On metoprolol 25 mg twice daily. Hydralazine 10 mg every 4 hourly as needed for SBP more than 180 mmHg 12/29: Blood pressure is controlled 120/50. It fluctuates. 10. GERD ? Stable. Continue home PPI. DVT prophylaxis: Lovenox CODE STATUS: Full code, verified Discharge medication reconciliation done. Discharge follow-up instructions completed. Discharge process discussed with the patient and all questions were answered to patient's satisfaction. Follow with PCP in 1 to 2 weeks Total time spent, exact 35 minutes on discharge meds reconciliation, examination, coordination of care with nurses and ancillary staff, review of imaging and blood test and discussion with the patient on follow-up instructions. Medications at Discharge Home Medications aspirin 81 mg chewable tablet 81 mg PO DAILY [facility] 01/21/16 albuterol sulfate 90 mcg/actuation aerosol inhaler 2 puff inhalation Q4H PRN Sob &/Or Wheezing 08/16/18 diltiazem HCl 180 mg tablet,extended release 24 hr 180 mg PO DAILY BLOOD PRESSURE 08/16/18 magnesium oxide 400 mg (241.3 mg magnesium) tablet 400 mg PO BID SUPPLEMENT 08/16/18 metoprolol tartrate 25 mg tablet 25 mg PO BID BLOOD PRESSURE 08/16/18 pantoprazole 40 mg tablet,delayed release 40 mg PO QHS ACID REFLUX 12/02/19 empagliflozin 10 mg tablet (Jardiance) 10 mg PO DAILY DIABETES 10/18/20 sitagliptin phosphate 50 mg tablet (Januvia) 50 mg PO DAILY DIABETES 10/18/20 budesonide-formoterol HFA 160 mcg-4.5 mcg/actuation aerosol inhaler (Symbicort) 2 puff inhalation BID 12/06/21 multivitamin 1 tab PO DAILY 12/06/21 pravastatin 20 mg tablet 20 mg PO DAILY CHOLESTEROL 12/06/21 ascorbic acid (vitamin C) 250 mg tablet (Vitamin C) 250 mg PO DAILY SUPPLEMENT 08/13/23 azelastine 137 mcg (0.1 %) nasal spray aerosol 137 mcg intranasal BID RUNNY NOSE 08/13/23 cod liver oil 1 cap PO DAILY SUPPLEMENT 08/13/23 dulaglutide 0.75 mg/0.5 mL subcutaneous pen injector (Trulicity) 0.75 mg subcut MO DIABETES 08/13/23 gabapentin 100 mg capsule 100 mg PO QHS NERVE PAIN 08/13/23 roflumilast 500 mcg tablet 500 mcg PO DAILY COPD 08/13/23 acetaminophen 500 mg tablet 1,000 mg (2 x 500 mg) PO Q8 #0 tabs 12/30/23 apixaban 2.5 mg tablet (Eliquis) 2.5 mg PO BID 30 days #60 tabs 12/30/23 bisacodyl 10 mg rectal suppository 10 mg AL DAILY #0 ea 12/30/23 insulin glargine-yfgn 100 unit/mL (3 mL) subcutaneous pen 15 unit (0.15 mL) subcut BID #0 mL 12/30/23 insulin lispro 100 unit/mL subcutaneous pen (Humalog KwikPen (U-100) Insulin) 8 unit (0.08 mL) subcut TIDAC #0 mL 12/30/23 insulin lispro 100 unit/mL subcutaneous pen (Humalog KwikPen (U-100) Insulin) See Protocol subcut ACHS #0 mL 12/30/23 oxycodone 5 mg tablet 2.5 mg (1/2 x 5 mg) PO Q4H PRN PRN Pain Score 4-10 3 days #0 tabs 12/30/23 polyethylene glycol 3350 17 gram/dose oral powder (Miralax) 17 g PO DAILY #238 grams 12/30/23 sennosides 8.6 mg-docusate sodium 50 mg tablet (Stool Softener-Stimulant Laxative) 2 tab PO BID #0 tabs 12/30/23 Weight / BMI Weight Weight: 157 lb 6.561 oz Body Mass Index (BMI) 27.8 ABG / Lab / Microbiology Data 12/30/23 06:02 12/30/23 06:02 Laboratory: Laboratory Results - last 24 hr 12/29/23 16:21: POC Glucose 198 H 12/29/23 21:03: POC Glucose 170 H 12/30/23 06:02: WBC 9.8, RBC 3.98 L, Hgb 10.7 L, Hct 33.8 L, MCV 84.9, MCH 26.9 L, MCHC 31.7 L, RDW Std Deviation 47.9 H, RDW Coeff of Vijay 15.5 H, Plt Count 191, MPV 11.3, Immature Gran % (Auto) 0.400, Neut % (Auto) 63.9, Lymph % (Auto) 25.3, Rich % (Auto) 8.7, Eos % (Auto) 1.4, Baso % (Auto) 0.3, Absolute Neuts (auto) 6.3, Absolute Lymphs (auto) 2.48, Nucleated RBC % 0, Sodium 135 L, Potassium 4.4, Chloride 104, Carbon Dioxide 27.0, Anion Gap 4 L, BUN 23 H, Creatinine 1.08 H, Estim Creat Clear Calc 40.01, Est GFR (MDRD) Af Amer 63, Est GFR (MDRD) Non-Af 52 L, BUN/Creatinine Ratio 21.3 H, Glucose 127 H, Calcium 11.3 H 12/30/23 08:06: POC Glucose 129 H 12/30/23 12:04: POC Glucose 78 Meaningful Use Info Meaningful Use Meaningful Use Diagnoses (Choose all that apply): None applicable Ischemic Stroke Statin Dosing Therapy Reference: STATIN DOSE THERAPY REFERENCE: * Patients > 75 years receive moderate or high dose statin therapy. * Patients 75 years or YOUNGER should receive HIGH intensity statin dose unless contraindicated. You will be required to document reason for non-treatment if statin daily dose does not meet guidelines. HIGH DOSE STATIN THERAPY DAILY Atorvastatin > than or = to 40 mg Rosuvastatin > than or = to 20 mg Amlodipine + Atorvastatin > than or = to 2.5/40 mg Ezetimibe + Simvastatin 10/80 mg Simvastatin 80mg Discharge Plan Admission Admit Date/Time: 12/27/23 23:32 Primary Reason for Your Visit: Left hip transcervical fracture Attending Provider: Sunny Bell Primary Care Provider: Ramone Smiley Consulting Providers: Gabriel Byrd; Nestor Bartlett Discharge Orders/Prescriptions Prescriptions: New sennosides-docusate sodium [Stool Softener-Stimulant Laxat] 8.6-50 mg Tablet 2 tab PO BID Qty: 0 0RF Rx Instructions: Hold if more than 1 bowel movement per day oxycodone 5 mg Tablet 2.5 mg PO Q4H PRN PRN (Reason: Pain Score 4-10) 3 Days Qty: 0 0RF Rx Instructions: Oxycodone 2.5 mg for moderate pain and 5 mg for severe pain respectively. insulin lispro [Humalog KwikPen Insulin] 100 unit/mL Insulin Pen See Protocol subcut ACHS Qty: 0 0RF Protocol: 4. Sliding Scale Insulin High-Med Dosing Condition: 150-199 mg/dl = 2 units Condition: 200-259 mg/dl = 4 units Condition: 260-324 mg/dl = 6 units Condition: 325-374 mg/dl = 8 units Condition: 375-409 mg/dl = 10 units Condition: 410-449 mg/dl = 11 units Condition: Greater than 449 call physician Protocol Text: - Use for Total Daily Dose of Insulin 56-80 units - Patient who are insulin resistant or septic HIGH MEDIUM DOSING ALGORITHM insulin lispro [Humalog KwikPen Insulin] 100 unit/mL Insulin Pen 8 unit subcut TIDAC Qty: 0 0RF Rx Instructions: Hold if glucose less than 130 mg/dl acetaminophen 500 mg Tablet 1,000 mg PO Q8 Qty: 0 0RF bisacodyl 10 mg Suppository 10 mg AL DAILY Qty: 0 0RF insulin glargine-yfgn 100 unit/mL (3 mL) Insulin Pen 15 unit subcut BID Qty: 0 0RF Rx Instructions: Hold if glucose less than 130 mg/dl Eliquis 2.5 mg tablet 2.5 mg PO BID 30 Days Qty: 60 0RF Rx Instructions: Post hip replacement DVT prophylaxis polyethylene glycol 3350 [Miralax] 17 gram/dose powder 17 g PO DAILY Qty: 238 0RF Continued Januvia 50 mg tablet 50 mg PO DAILY Jardiance 10 mg tablet 10 mg PO DAILY multivitamin Tablet 1 tab PO DAILY pravastatin 20 mg tablet 20 mg PO DAILY budesonide-formoterol [Symbicort] 160-4.5 mcg/actuation HFA aerosol inhaler 2 puff inhalation BID metoprolol tartrate 25 MG tablet 25 mg PO BID magnesium oxide 400 MG tablet 400 mg PO BID diltiazem HCl 180 MG tablet extended release 24 hr 180 mg PO DAILY albuterol sulfate 1 INHALER inhaler 2 puff INHALATION Q4H PRN (Reason: Sob &/Or Wheezing) pantoprazole 40 MG tablet 40 mg PO QHS gabapentin 100 mg capsule 100 mg PO QHS roflumilast 500 mcg tablet 500 mcg PO DAILY Trulicity 0.75 mg/0.5 mL pen injector 0.75 mg subcut MO Hold Instructions: MD Ordered cod liver oil Capsule 1 cap PO DAILY ascorbic acid (vitamin C) [Vitamin C] 250 mg tablet 250 mg PO DAILY azelastine 137 mcg (0.1 %) aerosol,spray 137 mcg intranasal BID Held aspirin 81 MG tablet,chewable 81 mg PO DAILY Hold Instructions: Hold while patient is on Eliquis. Discontinued fiber Capsule 1 cap PO DAILY insulin aspart U-100 100 UNIT/ML solution 5 unit subcut BIDCM Qty: 10 0RF insulin detemir U-100 100 UNITS/ML insulin pen 20 unit SC BIDCM Qty: 15 0RF Rx Instructions: . Referrals / Follow Up: Ramone Smiley MD [Primary Care Provider] - Gabriel Byrd MD [Med Staff - Active Staff] - Within 2 Weeks Disposition Disposition (needs filled in before D/C Order can be placed): Senior [facility] Facility Charges/Coding Visit Charges Inpatient E&M: 60703 Disch Hosp >30min
--- NOTE | 2023-12-30 14:23 | PHA.DC_ITS ---
Pharmacy [place] Med Reconciliation Pharmacy Service has performed discharge medication reconciliation for this patient. The patient's discharge medication list was reviewed for discrepancies and discrepancies were resolved. Medications at Discharge Home Medications aspirin 81 mg chewable tablet 81 mg PO DAILY [facility] 01/21/16 albuterol sulfate 90 mcg/actuation aerosol inhaler 2 puff inhalation Q4H PRN Sob &/Or Wheezing 08/16/18 diltiazem HCl 180 mg tablet,extended release 24 hr 180 mg PO DAILY BLOOD PRESSURE 08/16/18 magnesium oxide 400 mg (241.3 mg magnesium) tablet 400 mg PO BID SUPPLEMENT 08/16/18 metoprolol tartrate 25 mg tablet 25 mg PO BID BLOOD PRESSURE 08/16/18 pantoprazole 40 mg tablet,delayed release 40 mg PO QHS ACID REFLUX 12/02/19 empagliflozin 10 mg tablet (Jardiance) 10 mg PO DAILY DIABETES 10/18/20 sitagliptin phosphate 50 mg tablet (Januvia) 50 mg PO DAILY DIABETES 10/18/20 budesonide-formoterol HFA 160 mcg-4.5 mcg/actuation aerosol inhaler (Symbicort) 2 puff inhalation BID 12/06/21 multivitamin 1 tab PO DAILY 12/06/21 pravastatin 20 mg tablet 20 mg PO DAILY CHOLESTEROL 12/06/21 ascorbic acid (vitamin C) 250 mg tablet (Vitamin C) 250 mg PO DAILY SUPPLEMENT 08/13/23 azelastine 137 mcg (0.1 %) nasal spray aerosol 137 mcg intranasal BID RUNNY NOSE 08/13/23 cod liver oil 1 cap PO DAILY SUPPLEMENT 08/13/23 dulaglutide 0.75 mg/0.5 mL subcutaneous pen injector (Trulicity) 0.75 mg subcut MO DIABETES 08/13/23 gabapentin 100 mg capsule 100 mg PO QHS NERVE PAIN 08/13/23 roflumilast 500 mcg tablet 500 mcg PO DAILY COPD 08/13/23 acetaminophen 500 mg tablet 1,000 mg (2 x 500 mg) PO Q8 #0 tabs 12/30/23 apixaban 2.5 mg tablet (Eliquis) 2.5 mg PO BID 30 days #60 tabs 12/30/23 bisacodyl 10 mg rectal suppository 10 mg IA DAILY #0 ea 12/30/23 insulin glargine-yfgn 100 unit/mL (3 mL) subcutaneous pen 15 unit (0.15 mL) subcut BID #0 mL 12/30/23 insulin lispro 100 unit/mL subcutaneous pen (Humalog KwikPen (U-100) Insulin) 8 unit (0.08 mL) subcut TIDAC #0 mL 12/30/23 insulin lispro 100 unit/mL subcutaneous pen (Humalog KwikPen (U-100) Insulin) See Protocol subcut ACHS #0 mL 12/30/23 oxycodone 5 mg tablet 2.5 mg (1/2 x 5 mg) PO Q4H PRN PRN Pain Score 4-10 3 days #0 tabs 12/30/23 polyethylene glycol 3350 17 gram/dose oral powder (Miralax) 17 g PO DAILY #238 grams 12/30/23 sennosides 8.6 mg-docusate sodium 50 mg tablet (Stool Softener-Stimulant Laxative) 2 tab PO BID #0 tabs 12/30/23
--- NOTE | 2023-12-30 14:31 | CASEMGMT ---
Social Work- Pt received acceptance and precert for TCU. Pt advised and was ecstatic to have the opportunity to go to TCU. Pt reports family will bring in needed eye drops. SW sent transfer summary and med list to TCU. Plan: TCU [facility]
== END 2023-12-30 14:53 | disposition skilled nursing facility (03) | DRG 522 ==
LOC: ED 23:22 → MS3 23:42
PROVIDERS: Specialist; Admitting Provider Hospitalist; Emergency Provider Emergency Medicine; PCP Family Medicine; Visit Provider Internal Medicine
PROC: 0SRS01Z Replacement of Left Hip Joint, Femoral Surface with Metal Synthetic Substitute, Open Approach (ICD-10-PCS; CPT 27125; principal; 2023-12-28 12:10)
DX: S72.032A Displaced midcervical fracture of left femur, initial encounter for closed fracture (principal); E11.22 Type 2 diabetes mellitus with diabetic chronic kidney disease; E11.65 Type 2 diabetes mellitus with hyperglycemia; D50.9 Iron deficiency anemia, unspecified; E21.0 Primary hyperparathyroidism; N18.30 Chronic kidney disease, stage 3 unspecified; J44.9 Chronic obstructive pulmonary disease, unspecified; Z79.4 Long term (current) use of insulin; I12.9 Hypertensive chronic kidney disease with stage 1 through stage 4 chronic kidney disease, or unspecified chronic kidney disease; E78.5 Hyperlipidemia, unspecified; I25.10 Atherosclerotic heart disease of native coronary artery without angina pectoris; K21.9 Gastro-esophageal reflux disease without esophagitis; W18.30XA Fall on same level, unspecified, initial encounter; E86.0 Dehydration; E83.52 Hypercalcemia; R29.6 Repeated falls; R33.9 Retention of urine, unspecified; Y92.009 Unspecified place in unspecified non-institutional (private) residence as the place of occurrence of the external cause; R53.1 Weakness; R53.81 Other malaise; Z79.82 Long term (current) use of aspirin; Z79.84 Long term (current) use of oral hypoglycemic drugs; Z79.85 Long-term (current) use of injectable non-insulin antidiabetic drugs; Z79.51 Long term (current) use of inhaled steroids; Z87.891 Personal history of nicotine dependence
CPT/HCPCS: 36415; 51702; 71045; 73501; 73502; 76000; 80048; 82962; 83036; 83970; 84100; 85025; 85027; 85610; 85730; 86850; 86900; 86901; 88307; 88311; 93005; 94640; 94668; 97162; 97166; 97530; 97535; 99252; 99285; C1776; J7030; J7120; A4216; G0463; J2405

== ENCOUNTER 2023-12-30 15:03 | Inpatient (IN) | payer MEDICARE, SELFPAY ==
[2023-12-30 15:21] VITALS: BP 127/50; PULSE 96; RESP 18; TEMP 37.8; O2SAT 96; BMI 29.0
--- NOTE | 2023-12-30 15:28 | HP.PCM_ITS ---
HPI - General General Date of Admission: 12/30/23 Date of Service: 12/30/23 Chief Complaint: Here for rehabilitation. HPI Narrative 12/27/2023 OLGA DONALDSON, is a 78 Female who presents to [facility] ED with fall. Fall, left hip pain, getting off couch to go to straight cath herself, fell. Walks with walker at baseline, left hip pain, no head injury. Morphine, Zofran given. BUN 22, Creatinine 1.19, CXR okay. X-ray showed left hip fracture. 12/27/2023 Admit [facility]. Pain control, prepare for surgery, gentle IV fluids, for left hip fracture. 12/28/2023 Dr. Byrd performed left hip hemiarthroplasty, direct anterior approach. 12/29/2023 Serna catheter. Dulcolax 10mg po x 1 dose for constipation. IV fluids for hypercalcemia. 12/29/2023 Sitting bedside, watching TV, no pain. Aspirin 81mg twice daily x 30 days for DVT prophylaxis thru 01/27/2024. FWB with walker. 12/30/2023 Pre-CERT for SNF. PT/OT debility. Senna S, Miralax for constipation. Insulin adjusted for hyperglycemia. Voiding trial before discharge. 12/30/2023 Admit to TCU with debility, here for rehabilitation, strengthening, prior to discharge home with . Fever 100.1, order cbcd, bmp, ua, c+s, CXR, KUB, blood cultures x 2, covid/flu/rsv swab. [facility] Medical History (Updated 12/30/23 @ 15:[address] Mundo Villegas MD) Anemia Anxiety Aortic stenosis Asthma Carpal tunnel syndrome of right wrist Cellulitis and abscess of finger, unspecified Chronic idiopathic constipation Chronic renal failure, stage 3 (moderate) Colon polyp COPD (chronic obstructive pulmonary disease) Coronary artery disease Depression Diabetes Diabetic retinopathy Foraminal stenosis of lumbar region Former smoker GERD (gastroesophageal reflux disease) Goiter, nontoxic, multinodular History of malignant neoplasm of breast Hx of venous thrombosis and embolism Hypercalcemia Hyperlipidemia Hypertension Hypokalemia Hyponatremia Hypophosphatemia Iron deficiency anemia Irregular heart beat Leg weakness, bilateral Lumbar spinal stenosis Microcytic anemia Multiple thyroid nodules Neurogenic bladder Paronychia of left index finger Peripheral artery disease Polypharmacy Pruritus Retinopathy Rhinitis Strain of right rotator cuff capsule Thyroid goiter Type 2 diabetes mellitus Urinary retention with incomplete bladder emptying Urine retention UTI (urinary tract infection) Vaginal cyst Vitamin D deficiency Home Medications aspirin 81 mg chewable tablet 81 mg PO DAILY [facility] 01/21/16 [History Last Taken 08/12/23] albuterol sulfate 90 mcg/actuation aerosol inhaler 2 puff inhalation Q4H PRN Sob &/Or Wheezing 08/16/18 [History Last Taken 07/10/20 06:30] diltiazem HCl 180 mg tablet,extended release 24 hr 180 mg PO DAILY BLOOD PRESSURE 08/16/18 [History Last Taken 08/12/23] magnesium oxide 400 mg (241.3 mg magnesium) tablet 400 mg PO BID SUPPLEMENT 08/16/18 [History Last Taken 08/12/23] metoprolol tartrate 25 mg tablet 25 mg PO BID BLOOD PRESSURE 08/16/18 [History Last Taken 08/12/23] pantoprazole 40 mg tablet,delayed release 40 mg PO QHS ACID REFLUX 12/02/19 [History Last Taken 08/12/23] empagliflozin 10 mg tablet (Jardiance) 10 mg PO DAILY DIABETES 10/18/20 [History Last Taken 08/12/23] sitagliptin phosphate 50 mg tablet (Januvia) 50 mg PO DAILY DIABETES 10/18/20 [History Last Taken 08/12/23] budesonide-formoterol HFA 160 mcg-4.5 mcg/actuation aerosol inhaler (Symbicort) 2 puff inhalation BID lungs 12/06/21 [History Last Taken 08/12/23] multivitamin 1 tab PO DAILY VITAMIN 12/06/21 [History Last Taken 08/12/23] pravastatin 20 mg tablet 20 mg PO DAILY CHOLESTEROL 12/06/21 [History Last Taken 08/12/23] ascorbic acid (vitamin C) 250 mg tablet (Vitamin C) 250 mg PO DAILY SUPPLEMENT 08/13/23 [History Last Taken 08/12/23] azelastine 137 mcg (0.1 %) nasal spray aerosol 137 mcg intranasal BID RUNNY NOSE 08/13/23 [History Last Taken 08/12/23] cod liver oil 1 cap PO DAILY SUPPLEMENT 08/13/23 [History Last Taken 08/12/23] dulaglutide 0.75 mg/0.5 mL subcutaneous pen injector (Trulicity) 0.75 mg subcut MO DIABETES 08/13/23 [History Last Taken 08/10/23] gabapentin 100 mg capsule 100 mg PO QHS NERVE PAIN 08/13/23 [History Last Taken 08/12/23] roflumilast 500 mcg tablet 500 mcg PO DAILY COPD 08/13/23 [History Last Taken 08/12/23] acetaminophen 500 mg tablet 1,000 mg (2 x 500 mg) PO Q8 inflammation #0 tabs 12/30/23 [Rx Last Taken Unknown] apixaban 2.5 mg tablet (Eliquis) 2.5 mg PO BID blood thinner 30 days #60 tabs 12/30/23 [Rx Last Taken Unknown] bisacodyl 10 mg rectal suppository 10 mg OH DAILY PRN constipation 12/30/23 [History Last Taken Unknown] insulin glargine-yfgn 100 unit/mL (3 mL) subcutaneous pen 15 unit (0.15 mL) subcut BID diabetes-long acting insulin #0 mL 12/30/23 [Rx Last Taken Unknown] insulin lispro 100 unit/mL subcutaneous pen (Humalog KwikPen (U-100) Insulin) 8 unit subcut TIDAC short acting insulin 12/30/23 [History Last Taken Unknown] insulin lispro 100 unit/mL subcutaneous pen (Humalog KwikPen (U-100) Insulin) See Protocol subcut ACHS short acting in #0 mL 12/30/23 [Rx Last Taken Unknown] oxycodone 5 mg tablet 2.5 mg (1/2 x 5 mg) PO Q4H PRN PRN Pain Score 4-10 3 days #0 tabs 12/30/23 [Rx Last Taken Unknown] polyethylene glycol 3350 17 gram/dose oral powder (Miralax) 17 g PO DAILY STOOL SOFTENERS #238 grams 12/30/23 [Rx Last Taken Unknown] sennosides 8.6 mg-docusate sodium 50 mg tablet (Stool Softener-Stimulant Lax ative) 2 tab PO BID STOOL SOFTENER #0 tabs 12/30/23 [Rx Last Taken Unknown] Allergy/AdvReac Type Severity Reaction Status Date / Time adhesive tape [tape] Allergy NEEDS Verified 12/27/23 22:08 FOLLOW-UP amoxicillin Allergy YEAST Verified 12/27/23 22:08 INFECTION cephalexin monohydrate Allergy Rash Verified 12/27/23 22:08 [From Keflex] clopidogrel bisulfate Allergy Other Verified 12/27/23 22:08 [From Plavix] Family History Daughter Breast cancer Father Hypertension Sister Cancer Kidney disease Mother Pancreatic cancer Surgical History (Updated 12/30/23 @ 15:[address] Mundo Villegas MD) H/O dilation and curettage (~07/10/20) History of Achilles tendon repair History of left hip hemiarthroplasty History of lumpectomy of left breast Retinopathy S/P fine needle aspiration (~10/2020) Social History household members: spouse Smoking Status: Former smoker alcohol intake: never substance use type: does not use caffeine: Yes what type of physical activity do you participate in: none seatbelt use: always do you feel safe at home: Yes additional social history: [employer]- retired ROS Constitutional Constitutional: Reports weakness; Denies chills, fever(s) or weight gain ENT HEENT: Denies headache(s), nasal congestion or nasal discharge Cardiovascular Cardiovascular: Denies chest pain or palpitations Respiratory/Chest Respiratory/Chest: Denies cough, excessive phlegm production or shortness of breath with exertion Gastrointestinal Gastrointestinal: Denies abdominal pain, nausea or vomiting Genitourinary Genitourinary: Denies dysuria Musculoskeletal Musculoskeletal: Denies joint pain or joint swelling Integumentary Integumentary: Denies rash or wounds Neurologic Neurologic: Denies focal weakness, numbness or tingling Psychiatric Psychiatric: Denies anxiety, auditory hallucinations, depression, homicidal ideation or suicidal ideation Vital Signs Vital Signs Vital Signs: 12/30/23 15:21 Temperature 100.1 F H Temperature Source Temporal Pulse Rate 96 Respiratory Rate 18 Blood Pressure 127/50 H Blood Pressure Mean 75 Blood Pressure Source Monitor Blood Pressure Position Supine Blood Pressure Location Right Arm Pulse Ox 96 Oxygen Delivery Method Room Air Weight Weight: 74.435 kg Body Mass Index (BMI) 29.0 Physical Exam Const alert General Appearance: cooperative HEENT normocephalic Eyes PERRL and EOMs intact bilaterally Neck supple, no JVD and no carotid bruits Resp normal respiratory effort, normal air movement and clear to auscultation bilaterally Cardio regular rate and regular rhythm GI normal to inspection, nondistended, normoactive bowel sounds, non-tender and non-distended Extremity normal capillary refill Extremity Narrative: Left anterior proximal thigh dressing intact. No obvious signs of infection. General Extremity: Negative for edema Skin no rashes or lesions noted General Skin Exam: no breakdown Psych affect normal Appearance: appropriate Assessment & Plan Assessment/Plan (1) Debility: (2) Falls: (3) Fracture of hip, left, closed: (4) Hypercalcemia: (5) Urine retention: (6) Coronary artery disease: (7) Asthma: (8) COPD (chronic obstructive pulmonary disease): (9) GERD (gastroesophageal reflux disease): (10) Hypomagnesemia: (11) Diabetes: (12) Hyperlipidemia: (13) Diabetic polyneuropathy: PLAN: Plan 78 year old female with below past medical history hospitalized for left hip fracture, underwent left hip hemiarthroplasty 12/28/[address] Byrd, admitted to TCU with debility, here for rehabilitation, strengthening, prior to discharge home with . * Debility - PT/OT. * Pain - Tylenol 1000mg q8, Oxycodone 2.5mg q4 prn pain (4-10). * Bowel - Miralax 17gm daily, senna/colace 2 tablets bid, Dulcolax 10mg pr daily prn. * Adult immunization - Administer pneumonia vaccine, covid vaccine, flu vaccine as appropriate. * DVT - Eliquis 2.5mg bid thru 01/29/2024. * COPD - Advair 232-14 2 puffs bid, Albuterol 2 puffs q4h prn. * Vitamin C deficiency - Vitamin C 250mg daily. * Allergic rhinitis - Astelin 1 spray nasal bid. * Hypertension - Metoprolol 25mg bid, Diltiazem 180mg daily. * Coronary artery disease - Metoprolol 25mg bid, restart Aspirin 81mg daily 01/30/2024 after Eliquis. * Diabetes Mellitus II - Trulicity 0.75mg qweek, Jardiance 10mg daily, Tradjenta 5mg daily, Glargine 15 units bid, Lispro 8 units tidac. * Diabetic polyneuropathy - Gabapentin 100mg qhs. * Hypomagnesemia - Magnesium chloride 128mg bid. * Nutrition - MVI 1 tablet daily. * GERD - Pantoprazole 40mg qhs. * Hyperlipidemia - Pravastatin 20mg qhs. * Fever - order cbcd, bmp, ua, c+s, CXR, KUB, blood cultures x 2, covid/flu/rsv swab.
--- NOTE | 2023-12-30 15:53 | RAD_ITS ---
STUDY: X-RAY - ABDOMEN/PELVIS REASON FOR EXAM: Female, 78 years old. constipation, fever TECHNIQUE: KUB COMPARISON: None. FINDINGS: Normal visualized lung bases. Nonspecific diffuse fecal retention within the colon.. There is no demonstrated free abdominal air. The visualized liver, spleen and kidneys are grossly normal in size and morphology. There is a generator noted projecting over the right iliac wing with electrode in the pelvis to the right of midline Normal soft tissue structures. Lumbar spine demonstrates degenerative change. Left hip prosthesis is noted and degenerative changes on the right RAD/Abdomen Single View IMPRESSION: Nonspecific diffuse fecal retention within the colon. Electronically Signed: Abdelrahman Chaudhry MD at 17:27 EDT ,
--- NOTE | 2023-12-30 16:13 | NURSING ---
Patient running temp of 100.1, Dr. Villegas to room to see patient. Verbal orders received for labs and blood cultures, KUB, chest xray, UA C&S, swabs for flu/covid/RSV.
--- NOTE | 2023-12-30 16:15 | RAD_ITS ---
STUDY: X-RAY CHEST REASON FOR EXAM: Female, 78 years old. Temp, cough TECHNIQUE: PA and lateral COMPARISON: December 27, 2023 FINDINGS: There is slightly increasing interstitial prominence in both lower lobes since prior study possibly representing viral pneumonia.. There is no demonstrated pleural abnormality. Normal size heart. Normal mediastinum and eliana. Normal visualized pulmonary arteries. Mildly calcified aortic arch and descending thoracic aorta. Dorsal spine demonstrates degenerative changes. Normal visualized ribs, clavicles, and shoulders. There is no demonstrated abnormality of the visualized soft tissue structures of the upper abdomen. RAD/Chest PA and Lateral IMPRESSION: Mild increasing interstitial prominence in both lower lobes possibly representing viral pneumonia Electronically Signed: Abdelrahman Chaudhry MD at 17:29 EDT ,
[2023-12-30 16:59] LABS: Absolute Lymphocyte Count 2.15 X10^3/uL (0.83-4.51); Absolute Neutrophil Count 7.2 X10^3/uL (2.0-7.7); Basophil# 0.03 X10^3/uL; Basophil% 0.3 % (0-1); Eosinophil# 0.14 X10^3/uL; Eosinophils% 1.3 % (0-5); Hematocrit 30.3 % (37-47); Hemoglobin 9.4 g/dL (12.0-15.0); Lymphocyte # 2.15 X10^3/ul (0.83-4.51); Lymphocyte % 20.6 % (19-41); Mean Corpuscular Hgb 26.5 pg (27.0-32.0); Mean Corpuscular Volume 85.4 fL (81-99); Mean Platelet Vol. 11.8 fl (6.2-12.0); Monocyte# 0.85 X10^3/uL; Monocyte% 8.1 % (0-10); NRBC Flagged by Analyzer 0 % (0-5); Neutrophil # 7.22 X10^3/uL (2.7-7.7); Neutrophil % 69.3 % (47-70); Platelet Count 210 K/mm3 (150-450); RBC Distribution Width CV 15.8 % (11.6-14.6); RBC Distribution Width SD 48.8 fl (35.1-43.9); Red Blood Count 3.55 M/mm3 (4.2-5.4); White Blood Count 10.4 K/mm3 (4.4-11.0)
[2023-12-30 17:20] LABS: Anion Gap 5 (5-15); BUN 27 mg/dL (7-18); BUN/Creat Ratio 23.1 RATIO (10-20); Calcium,Total 10.8 mg/dL (8.5-10.1); Chloride 105 mmol/L (98-107); Creatinine, Serum 1.17 mg/dL (0.55-1.02); EST Glomerular Filtration Rate 47 mL/min (>60); Est Glom Filt Rate - Afr Amer 57 mL/min (>60); Estimated Creatinine Clearance 37.68 ml/min; Glucose 130 mg/dL (74-106); Potassium 4.3 mmol/L (3.5-5.1); Sodium Level 135 mmol/L (136-145)
[2023-12-30 17:23] LABS: Bedside Glucose 122 mg/dL (74-106)
[2023-12-30 18:54] LABS: Mucous, Urine 0 SEEN /hpf (<or=2+)
[2023-12-30 19:05] LABS: Color, Urine Yellow (Yellow); Glucose, Dipstick 1000 mg/dl (Normal); Ketone-Dipstick 5 mg/dl (Negative); Leukocyte Esterase-Dipstick 500 /ul (Negative); Nitrite-Dipstick Negative (Negative); Occult Blood-Urine 250 /ul (Negative); Protein-Dipstick 100 mg/dl (Negative); Specific Gravity, Urine 1.015 (1.002-1.030); Urine Bilirubin Dipstick Negative (Negative); Urine Clarity Clear (Clear); Urine Urobilinogen Normal (Normal)
[2023-12-30 19:27] LABS: Bacteria 3+ /hpf (None Seen); Red Blood Cells-Urine 5-10 SEEN /hpf (0-5); Squamous Epithelial Cells - UA 0-5 SEEN /hpf (5-10); White Blood Cells >100 SEEN /hpf (0-5)
--- NOTE | 2023-12-30 20:02 | NURSING ---
Arrives to unit with low grade fever, moist cough, and constipation. NO for Covid test, RSV and resp panel, UA C&S, KUB, CXR, Blood cultures, labs. CXR back positive for viral PN and KUB back for defuse fecal retention. NO for Levaquin PO x 7 days and soap suds enema.
--- NOTE | 2023-12-30 20:04 | NURSING ---
Addendum entered by Joelle Laird 12/31/23 05:05: SSE ineffective, patient rep/spouse (Sarita) reports patient has hx of chronic constipation and treated for a twisted bowel in the past. Written communication left for Dr. Villegas. No GI distress observed or reported at this time Addendum entered by Joelle Laird 12/30/23 22:35: Per Sarita (spouse) cell phone can be contacted also at phone number [phone] Addendum entered by Joelle Laird 12/30/23 22:14: Spouse/rep(Sarita) calls for update, updated on patient status/recent tests/imaging/SSE, and new order for ATB IV. Spouse expresses thanks for update and voices patient constipation has been an ongoing issue saw a doctor in [place] for it. Patient rep states patient is forgetful at times. Original Note: Dr. Villegas contacted regarding urinalysis results, culture pending. Initial dose of oral levaquin not yet administered, New order received from to discontinue oral Levaquin and change to Levaquin 750mg @48H IV x7days. Orders repeated back to Dr. Villegas
[2023-12-30] MEDS: 0.9% Saline Lock 10 ML Syringe IV (21:08)
[2023-12-30] MEDS: 0.9% Normal Saline (250mL Bag) 250 ML 15 ML IV (21:09)
[2023-12-30] MEDS: levoFLOXacin IV 750 MG/150 ML BAG 100 MG IV (21:13)
[2023-12-30] MEDS: Petrolatum 33% Tube 1 APPLIC TOPICAL (21:21)
[2023-12-30] MEDS: Menthol/Lanolin/Calamine/Znox 113 GM Tube 1 APPLIC TOPICAL (21:21)
[2023-12-30] MEDS: Azelastine HCl NASAL.SRY 1 SPRAY NASAL (21:21)
[2023-12-30] MEDS: APIXABAN 2.5 MG TABLET (WCH) PO (21:22)
[2023-12-30] MEDS: Fluticasone/Salmeterol 232-14 Inhaler 1 PUFF INHALATION (21:22)
[2023-12-30 21:23] VITALS: BP 132/58; PULSE 97
[2023-12-30] MEDS: Metoprolol Tartrate 25 MG Tablet PO (21:23)
[2023-12-30] MEDS: Pravastatin 20 MG Tablet PO (21:23)
[2023-12-30] MEDS: Pantoprazole Sodium 40 MG Tablet PO (21:24)
[2023-12-30] MEDS: Magnesium Chloride 64 MG Delay Rel.Tablet 128 MG PO (21:24)
[2023-12-30] MEDS: Acetaminophen 500 MG Tablet 1000 MG PO (21:24)
[2023-12-30] MEDS: Gabapentin 100 MG Capsule PO (21:24)
[2023-12-30] MEDS: Senna/Docusate Sodium 1 Tablet 2 TABLET PO (21:24)
[2023-12-30 21:54] LABS: Bedside Glucose 88 mg/dL (74-106)
[2023-12-30] MEDS: oxyCODONE 5 MG Tablet PO (23:47)
[2023-12-31 03:00] VITALS: TEMP 36.8
[2023-12-31] MEDS: Acetaminophen 500 MG Tablet 1000 MG PO ×3 (05:42→22:06)
[2023-12-31 05:57] LABS: Basophil# 0.03 X10^3/uL; Basophil% 0.4 % (0-1); Eosinophil# 0.19 X10^3/uL; Eosinophils% 2.5 % (0-5); Hematocrit 30.7 % (37-47); Hemoglobin 9.3 g/dL (12.0-15.0); Mean Corp Hgb Conc 30.3 g/dL (32-36); Mean Corpuscular Hgb 26.3 pg (27.0-32.0); Mean Platelet Vol. 10.9 fl (6.2-12.0); Monocyte# 0.79 X10^3/uL; Monocyte% 10.2 % (0-10); NRBC Flagged by Analyzer 0 % (0-5); Neutrophil # 4.96 X10^3/uL (2.7-7.7); Neutrophil % 64.3 % (47-70); Platelet Count 177 K/mm3 (150-450); RBC Distribution Width CV 15.8 % (11.6-14.6); Red Blood Count 3.53 M/mm3 (4.2-5.4); White Blood Count 7.7 K/mm3 (4.4-11.0)
[2023-12-31 06:24] LABS: Anion Gap 4 (5-15); BUN 27 mg/dL (7-18); BUN/Creat Ratio 23.9 RATIO (10-20); Calcium,Total 10.6 mg/dL (8.5-10.1); Chloride 106 mmol/L (98-107); Creatinine, Serum 1.13 mg/dL (0.55-1.02); EST Glomerular Filtration Rate 49 mL/min (>60); Est Glom Filt Rate - Afr Amer 60 mL/min (>60); Estimated Creatinine Clearance 39.01 ml/min; Glucose 92 mg/dL (74-106); Potassium 4.6 mmol/L (3.5-5.1); Sodium Level 135 mmol/L (136-145)
[2023-12-31 06:32] LABS: Bedside Glucose 97 mg/dL (74-106)
[2023-12-31 06:47] VITALS: PULSE 84; RESP 16; O2SAT 96
[2023-12-31] MEDS: Multivitamins,Therapeutic Tablet 1 TABLET PO (08:24)
[2023-12-31] MEDS: APIXABAN 2.5 MG TABLET (WCH) PO ×2 (08:25→22:27)
[2023-12-31] MEDS: dilTIAZem CD 180 MG Capsule PO (08:25)
[2023-12-31] MEDS: Azelastine HCl NASAL.SRY 1 SPRAY NASAL ×2 (08:26→22:06)
[2023-12-31] MEDS: Fluticasone/Salmeterol 232-14 Inhaler 1 PUFF INHALATION ×2 (08:26→22:06)
[2023-12-31] MEDS: Magnesium Chloride 64 MG Delay Rel.Tablet 128 MG PO ×2 (08:31→22:06)
[2023-12-31] MEDS: Senna/Docusate Sodium 1 Tablet 2 TABLET PO ×2 (08:32→22:05)
[2023-12-31] MEDS: LINAGLIPTIN 5 MG TABLET PO (08:32)
[2023-12-31 08:33] VITALS: BP 116/65; PULSE 91
[2023-12-31] MEDS: Empagliflozin 10 MG Tablet PO (08:33)
[2023-12-31] MEDS: Metoprolol Tartrate 25 MG Tablet PO ×2 (08:33→22:11)
[2023-12-31] MEDS: Ascorbic Acid 500 MG Tablet 250 MG PO (08:34)
[2023-12-31] MEDS: Polyethylene Glycol 3350 17 GM PACKET PO (08:34)
[2023-12-31] MEDS: Menthol/Lanolin/Calamine/Znox 113 GM Tube 1 APPLIC TOPICAL ×2 (08:35→22:28)
[2023-12-31] MEDS: Petrolatum 33% Tube 1 APPLIC TOPICAL ×2 (08:35→22:04)
[2023-12-31] MEDS: Electrolyte Solution/Peg's 4000 ML 1000 ML PO (09:11)
[2023-12-31] MEDS: Tuberculin,Purif.prot.deriv. 50 TU/ML Vial 0.1 ML ID (09:12)
[2023-12-31 12:14] LABS: Bedside Glucose 115 mg/dL (74-106)
--- NOTE | 2023-12-31 13:30 | PHA.CONS_ITS ---
TCU RX Drug Regimen Review Subjective/Objective Subjective/Objective: Subjective: 78 YOF admitted to TCU 12/30/23 s/p hospitalization at [facility] for a fall resulting in a left hip fracture. Patient had a left hemiarthroplasty while in the hospital. Patient admitted to TCU for strengthening and rehabilitation prior to discharge home where she resides with her . Objective: Allergies adhesive tape [tape] Allergy (Verified 12/27/23 22:08) NEEDS FOLLOW-UP CLOTH TAPE amoxicillin Allergy (Verified 12/27/23 22:08) YEAST INFECTION cephalexin monohydrate [From Keflex] Allergy (Verified 12/27/23 22:08) Rash clopidogrel bisulfate [From Plavix] Allergy (Verified 12/27/23 22:08) Other Current Medications Generic Name Dose Route Start Last Admin Trade Name Freq PRN Reason Stop Dose Admin Acetaminophen 1,000 mg 12/30/23 22:00 12/31/23 05:42 Acetaminophen 500 Mg Tablet PO 1,000 mg Q8 MINESH Administration Albuterol Sulfate 2 puff 12/30/23 16:27 Albuterol Ih (6.7 Gm) 1 Puff Inhaler INHALATION Q4H PRN Sob &/Or Wheezing Apixaban 2.5 mg 12/30/23 22:00 12/31/23 08:25 Apixaban 2.5 Mg Tablet ([facility]) PO 01/29/24 22:01 2.5 mg BID MINESH Administration Ascorbic Acid 250 mg 12/31/23 10:00 12/31/23 08:34 Ascorbic Acid 500 Mg Tablet PO 250 mg DAILY MINESH Administration Aspirin 81 mg 01/30/24 08:00 Aspirin 81 Mg Tab.Chew PO DAILYCM MINESH Azelastine HCl 1 spray 12/30/23 22:00 12/31/23 08:26 Azelastine Hcl Nasal.Sry NASAL 1 spray BID MINESH Administration Bisacodyl 10 mg 12/30/23 15:41 Bisacodyl 10 Mg Suppository RC DAILY PRN constipation Calamine/Phenol 1 applic 12/30/23 22:00 12/31/23 08:35 Menthol/Lanolin/Calamine/Znox 113 Gm Tube TOPICAL 1 applic BID MINESH Administration Protocol Diltiazem HCl 180 mg 12/31/23 10:00 12/31/23 08:25 Diltiazem Cd 180 Mg Capsule PO 180 mg DAILY MINESH Administration Empagliflozin 10 mg 12/31/23 10:00 12/31/23 08:33 Empagliflozin 10 Mg Tablet PO 10 mg DAILY [facility] Administration Gabapentin 100 mg 12/30/23 22:00 12/30/23 21:24 Gabapentin 100 Mg Capsule PO 100 mg QHS MINESH Administration Levofloxacin 750 mg in 150 mls @ 100 mls/hr 12/30/23 20:30 12/30/23 22:45 Levaquin Iv IV 01/06/24 20:31 Infused Q48 MINESH Infusion Sodium Chloride 250 mls @ 15 mls/hr 12/30/23 20:58 12/30/23 23:30 IV 0 mls/hr .[id number] PRN Infusion Additional IVPB Infusion Sodium Chloride 250 mls @ 15 mls/hr 12/30/23 20:58 IV .[id number] PRN Saline Flush Insulin Glargine 15 unit 12/30/23 22:00 12/31/23 08:28 Insulin Glargine-Yfgn 100 Unit/Ml Pen SC Not Given BID [facility] Insulin Human Lispro 8 unit 12/30/23 16:45 12/31/23 12:24 Insulin Lispro 100 Unit/Ml Insuln.Pen SC Not Given TIDAC [facility] Linagliptin 5 mg 12/31/23 10:00 12/31/23 08:32 Linagliptin 5 Mg Tablet PO 5 mg DAILY [facility] Administration Magnesium Chloride 128 mg 12/30/23 22:00 12/31/23 08:31 Magnesium Chloride 64 Mg Delay Rel.Tablet PO 128 mg BID [facility] Administration Metoprolol Tartrate 25 mg 12/30/23 22:00 12/31/23 08:33 Metoprolol Tartrate 25 Mg Tablet PO 25 mg BID [facility] Administration Protocol Multi-Ingredient Cream 1 applic 12/30/23 22:00 12/31/23 08:35 Petrolatum 33% Tube TOPICAL 1 applic BID [facility] Administration Protocol Multivitamins 1 tablet 12/31/23 08:00 12/31/23 08:24 Multivitamins,Therapeutic Tablet PO 1 tablet DAILYCM [facility] Administration Non-Formulary Medication 0.75 mg 01/04/24 15:41 Dulaglutide [Trulicity] SC MO [facility] Oxycodone HCl 2.5 - 5 mg 12/30/23 15:41 12/30/23 23:47 Oxycodone 5 Mg Tablet PO 5 mg Q4H PRN PRN Administration Pain Score 4-10 Pantoprazole Sodium 40 mg 12/30/23 22:00 12/30/23 21:24 Pantoprazole Sodium 40 Mg Tablet PO 40 mg QHS MINESH Administration Polyethylene Glycol 17 gm 12/31/23 10:00 12/31/23 08:34 Polyethylene Glycol 3350 17 Gm Packet PO 17 gm DAILY MINESH Administration Pravastatin Sodium 20 mg 12/30/23 22:00 12/30/23 21:23 Pravastatin 20 Mg Tablet PO 20 mg QHS MINESH Administration Fluticasone/Salmeterol 1 puff 12/30/23 22:00 12/31/23 08:26 Fluticasone/Salmeterol 232-14 Inhaler INHALATION 1 puff Q12 MINESH Administration Senna/Docusate Sodium 2 tablet 12/30/23 22:00 12/31/23 08:32 Senna/Docusate Sodium 1 Tablet PO 2 tablet BID MINESH Administration Sodium Chloride 10 - 40 ml 12/30/23 15:25 12/30/23 21:08 0.9% Saline Lock 10 Ml Syringe IV 10 ml UD PRN Administration SALINE FLUSH Tuberculin PPD 0.1 ml 01/07/24 10:00 Tuberculin,Purif.Prot.Deriv. 50 Tu/Ml Vial ID 01/07/24 10:01 X1 ONE Problem List (Updated 12/30/23 @ 15:[address] Mundo Villegas MD) Diabetic polyneuropathy (Acute) Diabetes (Acute) Hypomagnesemia (Acute) Coronary artery disease (Acute) Debility (Acute) Fracture of hip, left, closed (Acute) Falls (Acute) GERD (gastroesophageal reflux disease) (Chronic) COPD (chronic obstructive pulmonary disease) (Chronic) Asthma (Chronic) Hyperlipidemia (Chronic) Hypercalcemia (Chronic) Urine retention (Chronic) Vital Signs Temp Pulse Resp BP Pulse Ox O2 Del Method 98.3 F 91 16 116/65 96 Room Air 12/31/23 03:00 12/31/23 08:33 12/31/23 06:47 12/31/23 08:33 12/31/23 06:47 12/31/23 06:47 Oxygen Delivery Method Room Air Weight: 74.435 kg Body Mass Index (BMI) 29.0 Sodium 135 mmol/L (136-145) L 12/31/23 05:29 Potassium 4.6 mmol/L (3.5-5.1) 12/31/23 05:29 Chloride 106 mmol/L (98-107) 12/31/23 05:29 Carbon Dioxide 25.0 mmol/L (21.0-32.0) 12/31/23 05:29 Anion Gap 4 (5-15) L 12/31/23 05:29 BUN 27 mg/dL (7-18) H 12/31/23 05:29 Creatinine 1.13 mg/dL (0.55-1.02) H 12/31/23 05:29 Est GFR (MDRD) Af Amer 60 mL/min (>60) 12/31/23 05:29 Est GFR (MDRD) Non-Af 49 mL/min (>60) L 12/31/23 05:29 BUN/Creatinine Ratio 23.9 RATIO (10-20) H 12/31/23 05:29 Glucose 92 mg/dL (74-106) 12/31/23 05:29 Assessment/Plan: 1. Tylenol 1000mg PO Q8h, Oxycodone 2.5-5mg PO q4h PRN Pain 4-10. Please continue to monitor for increased/decreased S/S pain, PRN medication usage, oversedation/ constipation with continued narcotic usage. - to date, the pt has used 1 dose of oxycodone for pre-med pain rated 7/10. Post-admin pain rated 0/10. pain appears managed at this time. 2. Pneumonia: Levofloxacin 750mg IV Q48hr thru 01/06/24. Please continue to monitor for resolution of infection, renal function (CrCl 39mL/min on 12/30), culture data as clinically indicated, fever (Tmax =100.1 over past 24hrs). 3. Post-OP DVT Prophylaxis: Eliquis 2.5mg PO BID thru 01/29/24. Please continue to monitor for S/s bleeding/bruising, S/S blood clot formation, H/H (hgb 9.3, Hct 30.7 on 12/30). 4. HTN/CAD/HLD: Aspirin 81mg PO Daily (staring 01/29), Cardizem 180mg PO Daily, Lopressor 25mg PO BID, Pravastatin 20mg PO QHS. Please continue to monitor for S/S bleeding/bruising, BP (last 116/65), pulse (last 91 BPM), lipid panel annually (last done 12/2022). 5. Type II Diabetes: Insulin Glargine 15unit SC BID, Humalog 8 unit SC TID, Jardiance 10mg PO daily, Tradjenta 5mg PO Daily. Please continue to monitor for hyper/hypoglycemia (last BG levels: 115,97,88,122), stomach upset, nausea, A1c 9.4% on 12/27/23). 6. COPD: Airduo inhalation 1 puff Q12h, Albuterol inhaler 2 puff Q4h PRN. Please continue to monitor for S/S COPD exacerbation, heart rate (last 83 BPM), S/S candidiasis of the mouth. Please instruct patient to rinse out mouth well in between Airduo uses to help prevent this. 7. Diabetic Neuropathy: Gabapentin 100mg PO QHS. This medication is a [employer] Criteria medication and can increase the risk of falls in patients >65 years of age. Patient with a history of falls at home. Please evaluate use to see if benefit still outweighs risk of use, thank you. 8. GERD: Protonix 40mg PO QHS. Please continue to monitor for upset stomach, he adache, S/S GERD flare-up. Please also encourage non-pharmacologic treatments to help minimize exacerbations, as well. 9. Allergic Rhinitis: Astelin 1 spray nasally BID. Please continue to monitor f or symptom improvement, nasal irritation, headache, rhinitis. 10. General Wellness: MVI 1 tab PO Daily, Magnesium chloride 128mg PO BID, Vitamin C 250mg PO daily. 11. Skin Integrity: Calmoseptine Cream topically BID, Eucerin Cream topically BID. Please continue to monitor for skin dryness, irritation/redness, ulcer formation. 12. Bowel: Senna/Docusate 2 tab PO BID, Miralax 17g PO Daily, Dulcolax 10mg IA Daily PRN. Please continue to monitor for increased/decreased S/S constipation and/or diarrhea. - To date, the pt hasn't had a documented BM. If pt doesn't have BM in the next 48-72hrs, please consider administering a PRN medication to help facilitate BM, thank you. Assessment/Plan for indications treated with psychotropic medications: -No psychotropic medications identified at time of TCU medication list review. Medical chart and medication regimen reviewed. The following medication irregularities or issues were identified: 1. Hyperlipidemia: Pravastatin. Patient's last lipid panel takes 12/2022. Please consider obtaining a lipid panel if clinically indicated, thank you. 2. Diabetic Neuropathy: Gabapentin 100mg PO QHS. This medication is a Beer's Criteria medication and can increase the risk of falls in patients >65 years of age. Patient with a history of falls at home. Please evaluate use to see if benefit still outweighs risk of use, thank you. Date Date of Note:: 12/31/23
[2023-12-31 13:59] VITALS: BP 151/65; PULSE 83; RESP 18; TEMP 37; O2SAT 96
--- NOTE | 2023-12-31 16:49 | NURSING ---
Radiology called and message left for Elizabeth JEAN to place PICC line, no followup has been heard from radiology when this nurse called back to inquire on when procedure would take place staff stated ENGINE TEST CELL TECHNICIAN has left for the day but will leave message for her upon her return tomorrow
[2023-12-31 16:58] LABS: Bedside Glucose 133 mg/dL (74-106)
[2023-12-31] MEDS: 0.9% Saline Lock 10 ML Syringe IV (17:43)
[2023-12-31 21:00] VITALS: PULSE 87; O2SAT 97
[2023-12-31 21:54] LABS: Bedside Glucose 125 mg/dL (74-106)
[2023-12-31] MEDS: Pravastatin 20 MG Tablet PO (22:05)
[2023-12-31] MEDS: Pantoprazole Sodium 40 MG Tablet PO (22:06)
[2023-12-31] MEDS: Gabapentin 100 MG Capsule PO (22:10)
[2023-12-31 22:11] VITALS: BP 128/58; PULSE 88
[2024-01-01] MEDS: Acetaminophen 500 MG Tablet 1000 MG PO ×3 (05:45→21:58)
[2024-01-01] MEDS: 0.9% Saline Lock 10 ML Syringe IV (05:50)
[2024-01-01] MEDS: oxyCODONE 5 MG Tablet PO ×4 (05:56→21:52)
[2024-01-01 06:00] VITALS: RESP 16; TEMP 36.8
[2024-01-01 06:29] LABS: Bedside Glucose 107 mg/dL (74-106)
--- NOTE | 2024-01-01 08:17 | NS ---
MST score = 1
[2024-01-01] MEDS: Multivitamins,Therapeutic Tablet 1 TABLET PO (08:20)
[2024-01-01] MEDS: dilTIAZem CD 180 MG Capsule PO (08:21)
[2024-01-01] MEDS: APIXABAN 2.5 MG TABLET (WCH) PO ×2 (08:21→21:59)
[2024-01-01 08:22] VITALS: BP 149/53; PULSE 80
[2024-01-01] MEDS: Metoprolol Tartrate 25 MG Tablet PO ×2 (08:22→21:58)
[2024-01-01] MEDS: Polyethylene Glycol 3350 17 GM PACKET PO (08:22)
[2024-01-01] MEDS: Magnesium Chloride 64 MG Delay Rel.Tablet 128 MG PO ×2 (08:22→21:57)
[2024-01-01] MEDS: Empagliflozin 10 MG Tablet PO (08:22)
[2024-01-01] MEDS: LINAGLIPTIN 5 MG TABLET PO (08:23)
[2024-01-01] MEDS: Senna/Docusate Sodium 1 Tablet 2 TABLET PO ×2 (08:23→21:57)
[2024-01-01] MEDS: Ascorbic Acid 500 MG Tablet 250 MG PO (08:23)
[2024-01-01] MEDS: Petrolatum 33% Tube 1 APPLIC TOPICAL ×2 (08:28→21:54)
[2024-01-01] MEDS: Azelastine HCl NASAL.SRY 1 SPRAY NASAL ×2 (08:28→21:56)
[2024-01-01] MEDS: Fluticasone/Salmeterol 232-14 Inhaler 1 PUFF INHALATION ×2 (08:28→21:56)
[2024-01-01] MEDS: Menthol/Lanolin/Calamine/Znox 113 GM Tube 1 APPLIC TOPICAL ×2 (08:29→21:54)
--- NOTE | 2024-01-01 09:32 | PRO.PCM_ITS ---
Procedure Report Date of Procedure: 01/01/24 Assessment & Plan Assessment/Plan (1) Poor venous access: PLAN: Midline insertion in right upper extremity: Patient identity was verified with two patient identifiers. Hands were sanitized. The patient was positioned supine with right arm at 90 degrees. The patient's upper arm vasculature was assessed using ultrasound, and the right basilic vein was externally marked. An external measurement was obtained of 12 cm. Cap, mask, and prep gloves were donned. The underdrape was placed under the patient's arm. The site was prepped with chlorhexidine, and tourniquet was loosely applied. Prep gloves were discarded, and hands were sanitized. The sterile kit was opened with additional supplies dropped in. Sterile gown and gloves were donned, and the patient was draped. The sterile kit was assembled with all needle, introducer, connector, and catheter flushed with sterile normal saline. The marked site of insertion was anesthetized with 1% lidocaine. Patient tolerated well. The right basilic vein was then accessed using ultraso und guidance and guidewire was inserted to safety delvis. The tourniquet was released. The access needle was removed while securing the guidewire in place. The site was again anesthetized with 1% lidocaine, prior to insertion of introducer sheath and dilator. Patient tolerated well. The catheter was trimmed to a length of 12 cm, and again flushed with sterile normal saline. The catheter was then inserted through the introducer sheath, slowly. There was no resistance on insertion. The introducer sheath was retracted and peeled away, incrementally, while keeping the catheter secured. The catheter was fully inserted leaving 0 cm external. Blood return was verified and flushed needless connector was attached. The midline was flushed with sterile normal saline in a pulsatile fashion and clamped. Total sterile flushes used for the insertion was to 10 ml syringes, one from the kit. Finally, the insertion site was cleaned with chlorhexidine, and the catheter was secured using a StatLock. The site was covered with a Tegaderm CHG Dressing. Baseline arm circumference was obtained at the insertion site and measured 29 cm. The primary nurse is aware that the midline is ready for use. REF: [id number] LOT: [id number] Procedures Radiology Radiology Access Procedures: MIDL
[2024-01-01] MEDS: levoFLOXacin IV 750 MG/150 ML BAG 100 MG IV (10:09)
[2024-01-01] MEDS: 0.9% Normal Saline (250mL Bag) 250 ML 100 ML IV (10:09)
[2024-01-01 11:23] LABS: Bedside Glucose 212 mg/dL (74-106)
[2024-01-01] MEDS: Insulin Lispro 100 UNIT/ML INSULN.PEN 8 UNIT SC (12:18)
--- NOTE | 2024-01-01 12:36 | NURSING ---
Fixed Interest Dealer Note; Activity Asset: Bar Arias is independent in her choice of daily activities. Her family will visit her and bring her items she may need or want. She was offered word puzzles and books however declined them, stated she never really liked puzzles. She will watch tv and welcomes visits from the bakery supervisor but not pets please. Staff will encourage social activities and respect her right to say no.
[2024-01-01 16:00] VITALS: BP 145/58; PULSE 81; RESP 18; TEMP 36.3; O2SAT 97
[2024-01-01 16:51] LABS: Bedside Glucose 96 mg/dL (74-106)
[2024-01-01 21:40] LABS: Bedside Glucose 139 mg/dL (74-106)
[2024-01-01] MEDS: Gabapentin 100 MG Capsule PO (21:52)
[2024-01-01] MEDS: Pravastatin 20 MG Tablet PO (21:57)
[2024-01-01 21:58] VITALS: BP 144/73; PULSE 92
[2024-01-01] MEDS: Pantoprazole Sodium 40 MG Tablet PO (21:59)
[2024-01-01] MEDS: Insulin Glargine-YFGN 100 UNIT/ML Pen 15 UNIT SC (22:00)
[2024-01-02] MEDS: oxyCODONE 5 MG Tablet PO ×3 (03:03→12:46)
[2024-01-02 06:30] VITALS: RESP 16; TEMP 36.8
[2024-01-02] MEDS: 0.9% Saline Lock 10 ML Syringe IV ×3 (06:40→21:58)
[2024-01-02] MEDS: Acetaminophen 500 MG Tablet 1000 MG PO ×3 (06:40→22:00)
[2024-01-02 07:06] LABS: Bedside Glucose 129 mg/dL (74-106)
[2024-01-02] MEDS: Fluticasone/Salmeterol 232-14 Inhaler 1 PUFF INHALATION ×2 (08:31→22:03)
[2024-01-02] MEDS: Azelastine HCl NASAL.SRY 1 SPRAY NASAL ×2 (08:31→22:02)
[2024-01-02] MEDS: Polyethylene Glycol 3350 17 GM PACKET PO (08:33)
[2024-01-02] MEDS: Multivitamins,Therapeutic Tablet 1 TABLET PO (08:33)
[2024-01-02] MEDS: dilTIAZem CD 180 MG Capsule PO (08:33)
[2024-01-02 08:34] VITALS: BP 116/86; PULSE 79
[2024-01-02] MEDS: Petrolatum 33% Tube 1 APPLIC TOPICAL ×2 (08:34→22:02)
[2024-01-02] MEDS: Metoprolol Tartrate 25 MG Tablet PO ×2 (08:34→22:00)
[2024-01-02] MEDS: APIXABAN 2.5 MG TABLET (WCH) PO ×2 (08:34→22:00)
[2024-01-02] MEDS: Magnesium Chloride 64 MG Delay Rel.Tablet 128 MG PO ×2 (08:34→22:01)
[2024-01-02] MEDS: Menthol/Lanolin/Calamine/Znox 113 GM Tube 1 APPLIC TOPICAL ×2 (08:35→21:59)
[2024-01-02] MEDS: LINAGLIPTIN 5 MG TABLET PO (08:35)
[2024-01-02] MEDS: Senna/Docusate Sodium 1 Tablet 2 TABLET PO ×2 (08:36→22:01)
[2024-01-02] MEDS: Ascorbic Acid 500 MG Tablet 250 MG PO (08:36)
[2024-01-02] MEDS: Empagliflozin 10 MG Tablet PO (08:36)
[2024-01-02] MEDS: Insulin Lispro 100 UNIT/ML INSULN.PEN 8 UNIT SC (12:44)
[2024-01-02 12:55] LABS: Bedside Glucose 229 mg/dL (74-106)
[2024-01-02 16:00] VITALS: BP 138/63; PULSE 90; RESP 17; TEMP 37.7; O2SAT 98
[2024-01-02 17:12] LABS: Bedside Glucose 92 mg/dL (74-106)
[2024-01-02 21:51] LABS: Bedside Glucose 222 mg/dL (74-106)
[2024-01-02] MEDS: Gabapentin 100 MG Capsule PO (21:58)
[2024-01-02 22:00] VITALS: BP 132/57; PULSE 92; RESP 16
[2024-01-02] MEDS: Pravastatin 20 MG Tablet PO (22:02)
[2024-01-02] MEDS: Pantoprazole Sodium 40 MG Tablet PO (22:02)
[2024-01-02] MEDS: Insulin Glargine-YFGN 100 UNIT/ML Pen 15 UNIT SC (22:05)
[2024-01-02 22:18] VITALS: BP 132/57; PULSE 92
--- NOTE | 2024-01-03 00:26 | NURSING ---
Patient's BS at HS 222. Rechecked patient's BS per patient request, decreased to 213. Pt is asymptomatic. Pt educated on s/s of hyperglycemia and understands to alert nurse if symptoms arise. Continue Accuchecks. Call light in reach, no further assistance needed at this time.
[2024-01-03] MEDS: Acetaminophen 500 MG Tablet 1000 MG PO ×3 (05:51→21:37)
[2024-01-03 05:55] VITALS: RESP 16
[2024-01-03 06:19] LABS: Bedside Glucose 166 mg/dL (74-106)
[2024-01-03] MEDS: Insulin Lispro 100 UNIT/ML INSULN.PEN 8 UNIT SC ×3 (08:34→18:00)
[2024-01-03] MEDS: Insulin Glargine-YFGN 100 UNIT/ML Pen 15 UNIT SC (08:36)
[2024-01-03] MEDS: Multivitamins,Therapeutic Tablet 1 TABLET PO (08:36)
[2024-01-03] MEDS: Ascorbic Acid 500 MG Tablet 250 MG PO (08:39)
[2024-01-03] MEDS: Magnesium Chloride 64 MG Delay Rel.Tablet 128 MG PO ×2 (08:39→21:37)
[2024-01-03] MEDS: Empagliflozin 10 MG Tablet PO (08:40)
[2024-01-03] MEDS: APIXABAN 2.5 MG TABLET (WCH) PO ×2 (08:41→21:34)
[2024-01-03] MEDS: Polyethylene Glycol 3350 17 GM PACKET PO (08:41)
[2024-01-03] MEDS: dilTIAZem CD 180 MG Capsule PO (08:42)
[2024-01-03] MEDS: Azelastine HCl NASAL.SRY 1 SPRAY NASAL ×2 (08:42→21:32)
[2024-01-03] MEDS: Petrolatum 33% Tube 1 APPLIC TOPICAL ×2 (08:42→21:38)
[2024-01-03] MEDS: Menthol/Lanolin/Calamine/Znox 113 GM Tube 1 APPLIC TOPICAL ×2 (08:44→21:31)
[2024-01-03] MEDS: Fluticasone/Salmeterol 232-14 Inhaler 1 PUFF INHALATION ×2 (08:45→21:33)
[2024-01-03 08:46] VITALS: PULSE 80
[2024-01-03] MEDS: Metoprolol Tartrate 25 MG Tablet PO ×2 (08:46→21:37)
[2024-01-03] MEDS: NETARSUDIL MESYLAT/LATANOPROST 2.5 ML DROPS EACH EYE (08:55)
[2024-01-03] MEDS: Senna/Docusate Sodium 1 Tablet 2 TABLET PO ×2 (08:56→21:36)
[2024-01-03] MEDS: LINAGLIPTIN 5 MG TABLET PO (08:58)
[2024-01-03] MEDS: levoFLOXacin IV 750 MG/150 ML BAG 100 MG IV (10:54)
[2024-01-03] MEDS: 0.9% Saline Lock 10 ML Syringe IV ×2 (10:54→21:30)
[2024-01-03 11:20] LABS: Bedside Glucose 230 mg/dL (74-106)
--- NOTE | 2024-01-03 11:58 | NURSING ---
mica paster reported that pt c/o oxyir causing her to be groggy. would like something different. new order for ultram and decrease oxyir to 5mg po.
[2024-01-03 15:44] VITALS: BP 153/77; PULSE 86; RESP 18; TEMP 36.1; O2SAT 99
[2024-01-03 16:53] LABS: Bedside Glucose 153 mg/dL (74-106)
--- NOTE | 2024-01-03 20:36 | NURSING ---
LB 12/31/23, patient refuses rectal suppository, Dr. Villegas contacted via telephone to update, new order for Golytley 1L PO x1. Order repeated back.
[2024-01-03 21:28] LABS: Bedside Glucose 96 mg/dL (74-106)
[2024-01-03] MEDS: Electrolyte Solution/Peg's 4000 ML 1000 ML PO (21:30)
[2024-01-03] MEDS: Gabapentin 100 MG Capsule PO (21:30)
[2024-01-03] MEDS: Pantoprazole Sodium 40 MG Tablet PO (21:36)
[2024-01-03] MEDS: Pravastatin 20 MG Tablet PO (21:36)
[2024-01-03 21:37] VITALS: BP 100/50; PULSE 94
[2024-01-03 21:46] VITALS: BP 100/50; PULSE 94
[2024-01-04] MEDS: Acetaminophen 500 MG Tablet 1000 MG PO ×3 (05:29→16:20)
[2024-01-04 06:15] LABS: Bedside Glucose 141 mg/dL (74-106)
[2024-01-04] MEDS: Multivitamins,Therapeutic Tablet 1 TABLET PO (08:30)
[2024-01-04] MEDS: Azelastine HCl NASAL.SRY 1 SPRAY NASAL ×2 (08:30→21:33)
[2024-01-04] MEDS: Insulin Lispro 100 UNIT/ML INSULN.PEN 8 UNIT SC ×3 (08:30→18:00)
[2024-01-04] MEDS: Fluticasone/Salmeterol 232-14 Inhaler 1 PUFF INHALATION ×2 (08:31→21:48)
[2024-01-04] MEDS: Insulin Glargine-YFGN 100 UNIT/ML Pen 15 UNIT SC ×2 (08:31→21:36)
[2024-01-04] MEDS: dilTIAZem CD 180 MG Capsule PO (08:31)
[2024-01-04] MEDS: APIXABAN 2.5 MG TABLET (WCH) PO ×2 (08:31→21:35)
[2024-01-04] MEDS: Empagliflozin 10 MG Tablet PO (08:32)
[2024-01-04] MEDS: Magnesium Chloride 64 MG Delay Rel.Tablet 128 MG PO ×2 (08:33→21:36)
[2024-01-04] MEDS: Polyethylene Glycol 3350 17 GM PACKET PO (08:33)
[2024-01-04] MEDS: Senna/Docusate Sodium 1 Tablet 2 TABLET PO ×2 (08:33→21:34)
[2024-01-04] MEDS: Ascorbic Acid 500 MG Tablet 250 MG PO (08:34)
[2024-01-04] MEDS: LINAGLIPTIN 5 MG TABLET PO (08:34)
[2024-01-04 08:35] VITALS: BP 99/61; PULSE 82
[2024-01-04] MEDS: Metoprolol Tartrate 25 MG Tablet PO ×2 (08:35→21:35)
[2024-01-04] MEDS: NETARSUDIL MESYLAT/LATANOPROST 2.5 ML DROPS EACH EYE (08:42)
[2024-01-04] MEDS: Menthol/Lanolin/Calamine/Znox 113 GM Tube 1 APPLIC TOPICAL ×2 (08:45→21:44)
[2024-01-04] MEDS: Petrolatum 33% Tube 1 APPLIC TOPICAL ×2 (08:45→21:45)
[2024-01-04 11:32] LABS: Bedside Glucose 140 mg/dL (74-106)
--- NOTE | 2024-01-04 13:57 | NURSING ---
Contacted Dr. Byrd's office regarding dressing orders and spoke with Tana. Orders to remove surgical Mepilex on POD 5 and leave NELSON. Cleanse incision daily with soap and water and may place ABD daily if drainage. Mepilex removed at this time and scant amount of bloody drainage noted. Area cleansed and ABD placed. Patient tolerated well.
--- NOTE | 2024-01-04 15:25 | CASEMGMT ---
TCU admit note: Sw met with patient at bedside to complete initial assessment. Introduced self and explained sw role. Verified patient's contacts ( and son). Patient confirmed code status, she is currently a Full code, but wishes to be DNRCC-A. Sw to inform nursing staff and make necessary changes in patient's chart. Educated to MCR benefits. Patient states that she and her completed advanced directives, but she wants to change what is indicated on them. Patient states that her wants everything done, including all life saving measures, but she does not want that. Patient states that she is also fearful that if her is identified as her POA he will not follow her wishes, so she wants to list her son to be POA. Sw offered to do this with patient now, however patient states that she wants to do them at another time. Patient's goal is to be discharged to home when medically ready. Sw will continue to follow to provide support and assistance with discharge planning needs. Deepali Garcia, CHRONIC CARE NURSE, QC CHEMIST
[2024-01-04 16:00] VITALS: BP 99/61; PULSE 82; RESP 20; TEMP 36.4; O2SAT 95
[2024-01-04 17:16] LABS: Bedside Glucose 167 mg/dL (74-106)
[2024-01-04 20:31] VITALS: PULSE 85; RESP 16; O2SAT 98
[2024-01-04] MEDS: Pantoprazole Sodium 40 MG Tablet PO (21:34)
[2024-01-04] MEDS: Gabapentin 100 MG Capsule PO (21:34)
[2024-01-04 21:35] VITALS: BP 133/65; PULSE 85
[2024-01-04] MEDS: Pravastatin 20 MG Tablet PO (21:37)
[2024-01-04] MEDS: 0.9% Saline Lock 10 ML Syringe IV (21:43)
[2024-01-04 21:51] LABS: Bedside Glucose 192 mg/dL (74-106)
[2024-01-05 07:16] LABS: Bedside Glucose 138 mg/dL (74-106)
[2024-01-05 09:03] VITALS: BP 113/56; PULSE 73; RESP 16; TEMP 36.7; O2SAT 97
[2024-01-05] MEDS: LINAGLIPTIN 5 MG TABLET PO (09:05)
[2024-01-05] MEDS: Ascorbic Acid 500 MG Tablet 250 MG PO (09:05)
[2024-01-05] MEDS: Magnesium Chloride 64 MG Delay Rel.Tablet 128 MG PO ×2 (09:05→20:34)
[2024-01-05] MEDS: Senna/Docusate Sodium 1 Tablet 2 TABLET PO ×2 (09:05→20:34)
[2024-01-05 09:06] VITALS: PULSE 73
[2024-01-05] MEDS: APIXABAN 2.5 MG TABLET (WCH) PO ×2 (09:06→20:34)
[2024-01-05] MEDS: Empagliflozin 10 MG Tablet PO (09:06)
[2024-01-05] MEDS: dilTIAZem CD 180 MG Capsule PO (09:06)
[2024-01-05] MEDS: Multivitamins,Therapeutic Tablet 1 TABLET PO (09:06)
[2024-01-05] MEDS: Metoprolol Tartrate 25 MG Tablet PO ×2 (09:06→20:34)
[2024-01-05] MEDS: Fluticasone/Salmeterol 232-14 Inhaler 1 PUFF INHALATION ×2 (09:07→20:41)
[2024-01-05] MEDS: Azelastine HCl NASAL.SRY 1 SPRAY NASAL ×2 (09:07→20:40)
[2024-01-05] MEDS: Insulin Lispro 100 UNIT/ML INSULN.PEN 8 UNIT SC ×2 (09:09→12:02)
[2024-01-05] MEDS: Insulin Glargine-YFGN 100 UNIT/ML Pen 15 UNIT SC ×2 (09:10→22:04)
[2024-01-05] MEDS: Petrolatum 33% Tube 1 APPLIC TOPICAL ×2 (09:10→22:07)
[2024-01-05] MEDS: Menthol/Lanolin/Calamine/Znox 113 GM Tube 1 APPLIC TOPICAL ×2 (09:11→22:06)
[2024-01-05] MEDS: NETARSUDIL MESYLAT/LATANOPROST 2.5 ML DROPS EACH EYE (09:18)
[2024-01-05] MEDS: 0.9% Normal Saline (250mL Bag) 250 ML 15 ML IV (10:17)
[2024-01-05] MEDS: levoFLOXacin IV 750 MG/150 ML BAG 100 MG IV (10:18)
[2024-01-05] MEDS: 0.9% Saline Lock 10 ML Syringe IV (10:18)
[2024-01-05 10:28] VITALS: BMI 28.8
[2024-01-05 11:29] LABS: Bedside Glucose 105 mg/dL (74-106)
--- NOTE | 2024-01-05 16:36 | CHAPLAIN ---
Type of Pastoral Visit ___ Initial Visit _x__ Follow-up Visit ___ On-call Visit ___ General Patient Visit ___ Spiritual Assessment ___ Family Conference ___ Bereavement ___ Rapid Response ___ Code Blue ___ Other (describe below) Pastoral Care Referral From _x__ Patient ___ Family ___ Nurse ___ Physician ___ Singe Winder ___ Community Service Manager ___ Other (describe below) Sacrament/Intervention _x__ Active listening ___ Anointing ___ Judaism ___ Bereavement ___ Communion ___ Kristal exploration ___ ___ Life review _x__ Prayer ___ Reconciliation ___ Sacrament of Sick ___ Supportive presence ___ Wedding ___ Other (describe below) Pastoral Comments patient had been seen in [facility] recently and this is a follow up visit as requested; pt had a birthday on Thursday and has had good wishes and parham; pt expresses that recovery is coming along well and that she has no other concerns; pt welcomes visit and the prayers ongoing
[2024-01-05 16:55] LABS: Bedside Glucose 116 mg/dL (74-106)
[2024-01-05] MEDS: Acetaminophen 500 MG Tablet 1000 MG PO (20:33)
[2024-01-05 20:34] VITALS: BP 102/76; PULSE 92
[2024-01-05] MEDS: Pravastatin 20 MG Tablet PO (20:34)
[2024-01-05] MEDS: Pantoprazole Sodium 40 MG Tablet PO (20:34)
[2024-01-05] MEDS: Gabapentin 100 MG Capsule PO (20:35)
[2024-01-05 22:00] LABS: Bedside Glucose 140 mg/dL (74-106)
--- NOTE | 2024-01-06 06:11 | NURSING ---
Blood sugar this AM was 85. Patient asymptomatic. Given [place] juice and crackers. Will continue to monitor.
[2024-01-06 06:24] LABS: Bedside Glucose 85 mg/dL (74-106)
[2024-01-06] MEDS: Azelastine HCl NASAL.SRY 1 SPRAY NASAL ×2 (08:23→22:00)
[2024-01-06] MEDS: Multivitamins,Therapeutic Tablet 1 TABLET PO (08:23)
[2024-01-06] MEDS: Fluticasone/Salmeterol 232-14 Inhaler 1 PUFF INHALATION ×2 (08:24→22:00)
[2024-01-06] MEDS: dilTIAZem CD 180 MG Capsule PO (08:24)
[2024-01-06] MEDS: APIXABAN 2.5 MG TABLET (WCH) PO ×2 (08:24→22:05)
[2024-01-06] MEDS: Empagliflozin 10 MG Tablet PO (08:25)
[2024-01-06] MEDS: Magnesium Chloride 64 MG Delay Rel.Tablet 128 MG PO ×2 (08:26→22:04)
[2024-01-06 08:27] VITALS: BP 146/59; PULSE 79
[2024-01-06] MEDS: Senna/Docusate Sodium 1 Tablet 2 TABLET PO ×2 (08:27→22:03)
[2024-01-06] MEDS: NETARSUDIL MESYLAT/LATANOPROST 2.5 ML DROPS EACH EYE (08:27)
[2024-01-06] MEDS: Metoprolol Tartrate 25 MG Tablet PO ×2 (08:27→22:04)
[2024-01-06] MEDS: LINAGLIPTIN 5 MG TABLET PO (08:28)
[2024-01-06] MEDS: Ascorbic Acid 500 MG Tablet 250 MG PO (08:28)
[2024-01-06] MEDS: Menthol/Lanolin/Calamine/Znox 113 GM Tube 1 APPLIC TOPICAL ×2 (08:33→21:59)
[2024-01-06] MEDS: Petrolatum 33% Tube 1 APPLIC TOPICAL ×2 (08:36→21:59)
--- NOTE | 2024-01-06 09:10 | NURSING ---
Venereal Disease Investigator Note; MDS For 01/06/2024 Complete
[2024-01-06 11:53] LABS: Bedside Glucose 248 mg/dL (74-106)
[2024-01-06] MEDS: Insulin Lispro 100 UNIT/ML INSULN.PEN SC ×2 (12:09→18:37)
--- NOTE | 2024-01-06 12:34 | NURSING ---
Offered covid vaccine, VIS provided. Patient refuses at this time.
--- NOTE | 2024-01-06 13:05 | CASEMGMT ---
Social Work IDT met with patient and sonSarita at bedside to complete care plan meeting. Discussed patient progress with therapy (PT/OT/ST), dietary, nursing, and activites. Patient consulted for speech therapy for swallowing and cognitive evaluation. Patient completed B-cat and scored 26/50. Patient's son informed IDT that the patient has been diagnosed with mild cognitive degenerative impairments. Patient's son confirmed that the patient is currently active with [facility] for medication support and son assist with financial support. Patient remains max A for bed mobility and 30ft with SBA/ contact guard; goal is 80ft for household distance. Per therapy, patient requires additional support from therapy. SW educated patient and son of [employer] Medicare insurance coverage and benefits; next review date 01/10. Patient informed SW that she has fallen multiple times in home. Patient informed SW that she fell while in hospital bed due to slippery mattress pad. SW inquired about a medical alert device due to lack of supervision in home. Patient's son informed team that the patient has medical alert, but does not comply with wearing device. SW encouraged patient to utilize medical alert. SW discussed home health care support. Patient is agreeable to PT/OT/ST/SERVICE SUPERVISOR/SN support. SW reviewed home health care coverage and support. Patient's son, Sarita informed SW that female staffing for home health care is preferred. Patient confirmed that female staffing is preferred. SW to provide home health care provider list for family. SW provided patient's son with resources private duty care and information for areas of agining agency. SW will continue to follow to assist with discharge planning. APOLLO Lowe
[2024-01-06 16:00] VITALS: BP 121/60; PULSE 80; RESP 16; TEMP 37.2; O2SAT 99
[2024-01-06 17:12] LABS: Bedside Glucose 178 mg/dL (74-106)
--- NOTE | 2024-01-06 18:34 | CASEMGMT ---
Social Work 1600- SW received email from [facility], Solis Villalobos that the patient has been discharge from [facility]. [facility] will not resume services post discharge. [facility] recommends long chain quiller tender care in [place] due to patient noncompliance with care. SW met with patient at bedside to complete MDS. Patient BIM () and PhQ-2 (2) Patient informed SW that she feels down at times due to being away from home. Patient informed SW that she does not want to go to a alf. Patient informed SW that she would like to return home with [facility] program for medication management. SW informed patient that she has been discharged from the [facility] program. Patient states well i guess when you are down they push you out. Patient informed SW that she will need support for medication management. Patient informed SW that she will never go to a alf. Patient informed SW that she was compliant with care. SW informed pateint that continued care discussions are required for home safety and care in home. SW will continue to follow to assist patient with care. APOLLO Lowe
--- NOTE | 2024-01-06 19:49 | NURSING ---
BS [address] Villegas aware and Glargine and Humalog decreased. Patient reports she is unable to afford transport to F/U appt with Dr. Byrd on 01/11/24 and requesting that appt be moved to when she is more mobile or that we remove enriqueta here. Dr. Byrd office contacted and spoke with clinical staff and they report they will call tomorrow on 01/07/24 with orders.
[2024-01-06] MEDS: Insulin Glargine-YFGN 100 UNIT/ML Pen 10 UNIT SC (22:00)
[2024-01-06] MEDS: Gabapentin 100 MG Capsule PO (22:03)
[2024-01-06 22:04] VITALS: BP 110/69; PULSE 89
[2024-01-06] MEDS: Pantoprazole Sodium 40 MG Tablet PO (22:04)
[2024-01-06] MEDS: Pravastatin 20 MG Tablet PO (22:04)
[2024-01-06 22:19] LABS: Bedside Glucose 144 mg/dL (74-106)
[2024-01-06] MEDS: traMADol 50 MG Tablet PO (23:17)
[2024-01-07] MEDS: Acetaminophen 500 MG Tablet 1000 MG PO ×2 (04:01→19:51)
[2024-01-07] MEDS: 0.9% Saline Lock 10 ML Syringe IV ×2 (04:01→19:52)
--- NOTE | 2024-01-07 05:59 | NURSING ---
No blood return from midline x2 nurse attempts. Written communication left for Dr. Villegas. Confidential voicemail left for radiology nurse to assess. Lab notified unable to draw labs from midline at this time.
[2024-01-07 06:41] LABS: Bedside Glucose 142 mg/dL (74-106)
[2024-01-07 08:22] LABS: Absolute Lymphocyte Count 2.39 X10^3/uL (0.83-4.51); Absolute Neutrophil Count 5.1 X10^3/uL (2.0-7.7); Basophil# 0.06 X10^3/uL; Basophil% 0.7 % (0-1); Eosinophil# 0.35 X10^3/uL; Hematocrit 29.2 % (37-47); Hemoglobin 8.8 g/dL (12.0-15.0); Lymphocyte # 2.39 X10^3/ul (0.83-4.51); Lymphocyte % 27.6 % (19-41); Mean Corp Hgb Conc 30.1 g/dL (32-36); Mean Corpuscular Hgb 26.3 pg (27.0-32.0); Mean Corpuscular Volume 87.2 fL (81-99); Mean Platelet Vol. 9.6 fl (6.2-12.0); Monocyte# 0.74 X10^3/uL; Monocyte% 8.5 % (0-10); NRBC Flagged by Analyzer 0 % (0-5); Neutrophil # 5.08 X10^3/uL (2.7-7.7); Neutrophil % 58.6 % (47-70); Platelet Count 383 K/mm3 (150-450); RBC Distribution Width CV 15.4 % (11.6-14.6); RBC Distribution Width SD 48.9 fl (35.1-43.9); Red Blood Count 3.35 M/mm3 (4.2-5.4); White Blood Count 8.7 K/mm3 (4.4-11.0)
[2024-01-07 08:39] LABS: Anion Gap 3 (5-15); BUN 18 mg/dL (7-18); BUN/Creat Ratio 16.4 RATIO (10-20); Calcium,Total 10.6 mg/dL (8.5-10.1); Chloride 105 mmol/L (98-107); EST Glomerular Filtration Rate 51 mL/min (>60); Est Glom Filt Rate - Afr Amer 62 mL/min (>60); Estimated Creatinine Clearance 39.23 ml/min; Glucose 140 mg/dL (74-106); Potassium 4.6 mmol/L (3.5-5.1); Sodium Level 135 mmol/L (136-145)
--- NOTE | 2024-01-07 09:35 | PCM.OP.PRO ---
Procedure Report Date of Procedure: 01/07/24 Assessment & Plan Assessment/Plan (1) Poor venous access: PLAN: This nurse practitioner was called to evaluate midline in right upper extremity that was not giving blood return. Despite multiple flushes, changing the needleless connector, verifying no external kink, and withdrawing the catheter 2 cm, free-flowing blood return was not obtained. Midline was discontinued. Gauze and tape was applied. Patient tolerated well. PROCEDURE: IV Placement under Ultrasound Guidance PERFORMED BY: JAKOB Pond INDICATION: IV access required. Poor venous access. Left upper extremity restriction. TECHNIQUE: Patient identity was verified with two patient identifiers. Hands were sanitized. The patient was positioned supine with right arm at 90 degrees. The patient's upper arm vasculature was assessed using ultrasound, and the left forearm vein was externally marked. The vein was suitable for insertion of a 20 gauge 2-1/2 inch extended dwell catheter. The sterile kit was opened with additional supplies dropped in. Mask and prep gloves were donned. The underdrape was placed under the patient's arm. The site was prepped with chlorhexidine, and tourniquet was loosely applied. Prep gloves were discarded, and hands were sanitized. Sterile gloves were donned, and the patient's arm was draped. The sterile kit was assembled with needless connector and loop flushed with sterile normal saline. The vein was then accessed using dynamic ultrasound guidance, and the catheter advanced easily. 1 attempt was required. The tourniquet was released. The flushed loop and needless connector were attached. Blood return was easily aspirated. 10 ml sterile normal saline was delivered via pulsatile flush, and the loop was clamped prior to removal of the syringe to prevent back flow. Skin was prepped and followed by application of a stat-lock and a clear dressing was applied to secure the IV. The patient tolerated the procedure well. Nursing staff is aware that this line is ready for use and may be utilized for blood draws. Please assure that following blood draws or any IV medication administration, the catheter is flushed with at least 10 mL of normal saline with push-pause technique-- flush by pushing 1 ml boluses with short pauses in between x10, to flush with the entire 10 ml syringe. This technique increases turbulence allowing for more effective catheter clearance of residual infusates or blood. Then immediately clamp the catheter prior to the removal of the syringe, to make every attempt to prevent occlusion. Please call the imaging nurse practitioner at [phone] with any questions.
[2024-01-07] MEDS: Insulin Lispro 100 UNIT/ML INSULN.PEN SC ×2 (09:41→12:53)
--- NOTE | 2024-01-07 10:08 | NURSING ---
Call back from Dr. Byrd's office, order for nursing to remove enriqueta on 01/11/24 if no concerns with incision site. Ok to move appt back a week. Re-scheduled to 01/18/24 at 10am.
--- NOTE | 2024-01-07 10:35 | NURSING ---
Updated patient that appt with Dr. Byrd moved, and that nursing will remove enriqueta on Thursday. She will update her son.
[2024-01-07 10:37] VITALS: BP 147/71; PULSE 75; RESP 18; TEMP 36.2; O2SAT 99
[2024-01-07] MEDS: Senna/Docusate Sodium 1 Tablet 2 TABLET PO ×2 (10:39→22:22)
[2024-01-07 10:40] VITALS: PULSE 75
[2024-01-07] MEDS: LINAGLIPTIN 5 MG TABLET PO (10:40)
[2024-01-07] MEDS: Metoprolol Tartrate 25 MG Tablet PO ×2 (10:40→22:19)
[2024-01-07] MEDS: Magnesium Chloride 64 MG Delay Rel.Tablet 128 MG PO ×2 (10:40→22:22)
[2024-01-07] MEDS: APIXABAN 2.5 MG TABLET (WCH) PO ×2 (10:40→22:20)
[2024-01-07] MEDS: Ascorbic Acid 500 MG Tablet 250 MG PO (10:40)
[2024-01-07] MEDS: dilTIAZem CD 180 MG Capsule PO (10:41)
[2024-01-07] MEDS: Multivitamins,Therapeutic Tablet 1 TABLET PO (10:41)
[2024-01-07] MEDS: Empagliflozin 10 MG Tablet PO (10:41)
[2024-01-07] MEDS: Insulin Glargine-YFGN 100 UNIT/ML Pen 10 UNIT SC ×2 (10:42→22:21)
[2024-01-07] MEDS: Polyethylene Glycol 3350 17 GM PACKET PO (10:43)
[2024-01-07] MEDS: Azelastine HCl NASAL.SRY 1 SPRAY NASAL ×2 (10:46→22:23)
[2024-01-07] MEDS: Petrolatum 33% Tube 1 APPLIC TOPICAL ×2 (10:47→22:20)
[2024-01-07] MEDS: Menthol/Lanolin/Calamine/Znox 113 GM Tube 1 APPLIC TOPICAL ×2 (10:47→22:20)
[2024-01-07] MEDS: NETARSUDIL MESYLAT/LATANOPROST 2.5 ML DROPS EACH EYE (10:47)
[2024-01-07] MEDS: Fluticasone/Salmeterol 232-14 Inhaler 1 PUFF INHALATION ×2 (10:47→22:23)
[2024-01-07] MEDS: Tuberculin,Purif.prot.deriv. 50 TU/ML Vial 0.1 ML ID (10:51)
[2024-01-07 11:21] LABS: Bedside Glucose 157 mg/dL (74-106)
--- NOTE | 2024-01-07 12:48 | NURSING ---
Received Fax from [facility] Dr. Byrd for Order of Left Hip Xray WB Pelvis W/Hip AP &Crossfire
[2024-01-07 16:00] VITALS: RESP 16
[2024-01-07 16:24] LABS: Bedside Glucose 128 mg/dL (74-106)
[2024-01-07 21:33] LABS: Bedside Glucose 221 mg/dL (74-106)
[2024-01-07] MEDS: Gabapentin 100 MG Capsule PO (22:18)
[2024-01-07 22:19] VITALS: BP 144/49; PULSE 72
[2024-01-07] MEDS: Pantoprazole Sodium 40 MG Tablet PO (22:22)
[2024-01-07] MEDS: Pravastatin 20 MG Tablet PO (22:22)
[2024-01-07 22:33] VITALS: BP 144/49; PULSE 72
[2024-01-08 06:37] LABS: Bedside Glucose 124 mg/dL (74-106)
[2024-01-08 08:50] VITALS: BP 145/74; PULSE 78; RESP 18; TEMP 37.1; O2SAT 97
[2024-01-08] MEDS: Fluticasone/Salmeterol 232-14 Inhaler 1 PUFF INHALATION ×2 (08:52→23:35)
[2024-01-08] MEDS: Insulin Lispro 100 UNIT/ML INSULN.PEN SC ×3 (08:52→17:31)
[2024-01-08] MEDS: Azelastine HCl NASAL.SRY 1 SPRAY NASAL ×2 (08:53→23:35)
[2024-01-08] MEDS: Insulin Glargine-YFGN 100 UNIT/ML Pen 10 UNIT SC ×2 (08:53→23:27)
[2024-01-08 08:54] VITALS: PULSE 78
[2024-01-08] MEDS: Multivitamins,Therapeutic Tablet 1 TABLET PO (08:54)
[2024-01-08] MEDS: Metoprolol Tartrate 25 MG Tablet PO ×2 (08:54→23:36)
[2024-01-08] MEDS: Magnesium Chloride 64 MG Delay Rel.Tablet 128 MG PO ×2 (08:55→23:34)
[2024-01-08] MEDS: NETARSUDIL MESYLAT/LATANOPROST 2.5 ML DROPS EACH EYE (08:55)
[2024-01-08] MEDS: Ascorbic Acid 500 MG Tablet 250 MG PO (08:55)
[2024-01-08] MEDS: Empagliflozin 10 MG Tablet PO (08:55)
[2024-01-08] MEDS: Senna/Docusate Sodium 1 Tablet 2 TABLET PO ×2 (08:55→23:33)
[2024-01-08] MEDS: LINAGLIPTIN 5 MG TABLET PO (08:55)
[2024-01-08] MEDS: dilTIAZem CD 180 MG Capsule PO (08:56)
[2024-01-08] MEDS: APIXABAN 2.5 MG TABLET (WCH) PO ×2 (08:56→23:27)
[2024-01-08] MEDS: Petrolatum 33% Tube 1 APPLIC TOPICAL ×2 (09:00→23:36)
[2024-01-08] MEDS: Menthol/Lanolin/Calamine/Znox 113 GM Tube 1 APPLIC TOPICAL ×2 (09:00→23:36)
[2024-01-08] MEDS: 0.9% Saline Lock 10 ML Syringe IV ×2 (09:40→23:26)
[2024-01-08 10:58] VITALS: PULSE 74; RESP 18; O2SAT 97
[2024-01-08 11:07] LABS: Bedside Glucose 169 mg/dL (74-106)
[2024-01-08] MEDS: Acetaminophen 500 MG Tablet 1000 MG PO (15:09)
[2024-01-08 16:24] LABS: Bedside Glucose 243 mg/dL (74-106)
--- NOTE | 2024-01-08 20:03 | NURSING ---
Diet madhavi marline and beto crackers given per pt request.
[2024-01-08 21:24] LABS: Bedside Glucose 237 mg/dL (74-106)
[2024-01-08] MEDS: Gabapentin 100 MG Capsule PO (23:26)
[2024-01-08] MEDS: Pantoprazole Sodium 40 MG Tablet PO (23:34)
[2024-01-08] MEDS: Pravastatin 20 MG Tablet PO (23:35)
[2024-01-08 23:36] VITALS: BP 135/44; PULSE 77
[2024-01-08 23:48] VITALS: BP 135/44; PULSE 77
[2024-01-09 06:50] LABS: Bedside Glucose 149 mg/dL (74-106)
[2024-01-09] MEDS: Insulin Lispro 100 UNIT/ML INSULN.PEN SC ×3 (08:12→17:51)
[2024-01-09] MEDS: Azelastine HCl NASAL.SRY 1 SPRAY NASAL ×2 (08:13→20:47)
[2024-01-09] MEDS: Multivitamins,Therapeutic Tablet 1 TABLET PO (08:13)
[2024-01-09] MEDS: APIXABAN 2.5 MG TABLET (WCH) PO ×2 (08:14→20:48)
[2024-01-09] MEDS: Fluticasone/Salmeterol 232-14 Inhaler 1 PUFF INHALATION ×2 (08:14→20:48)
[2024-01-09] MEDS: dilTIAZem CD 180 MG Capsule PO (08:14)
[2024-01-09] MEDS: Insulin Glargine-YFGN 100 UNIT/ML Pen 10 UNIT SC ×2 (08:15→22:14)
[2024-01-09] MEDS: Empagliflozin 10 MG Tablet PO (08:16)
[2024-01-09] MEDS: Magnesium Chloride 64 MG Delay Rel.Tablet 128 MG PO ×2 (08:16→20:49)
[2024-01-09] MEDS: NETARSUDIL MESYLAT/LATANOPROST 2.5 ML DROPS EACH EYE (08:16)
[2024-01-09] MEDS: LINAGLIPTIN 5 MG TABLET PO (08:17)
[2024-01-09] MEDS: Senna/Docusate Sodium 1 Tablet 2 TABLET PO (08:17)
[2024-01-09] MEDS: Ascorbic Acid 500 MG Tablet 250 MG PO (08:21)
[2024-01-09 08:23] VITALS: BP 120/68; PULSE 75
[2024-01-09] MEDS: Metoprolol Tartrate 25 MG Tablet PO ×2 (08:23→20:50)
[2024-01-09] MEDS: Petrolatum 33% Tube 1 APPLIC TOPICAL ×2 (08:31→20:48)
[2024-01-09] MEDS: Menthol/Lanolin/Calamine/Znox 113 GM Tube 1 APPLIC TOPICAL ×2 (08:33→20:54)
[2024-01-09 11:26] LABS: Bedside Glucose 191 mg/dL (74-106)
[2024-01-09] MEDS: 0.9% Saline Lock 10 ML Syringe IV ×2 (12:17→20:56)
[2024-01-09 15:36] VITALS: BP 139/43; PULSE 77; RESP 20; TEMP 37.3; O2SAT 94
[2024-01-09] MEDS: Acetaminophen 500 MG Tablet 1000 MG PO (16:05)
[2024-01-09 16:54] LABS: Bedside Glucose 162 mg/dL (74-106)
[2024-01-09] MEDS: Gabapentin 100 MG Capsule PO (20:48)
[2024-01-09] MEDS: Pravastatin 20 MG Tablet PO (20:49)
[2024-01-09] MEDS: Pantoprazole Sodium 40 MG Tablet PO (20:49)
[2024-01-09 20:50] VITALS: BP 160/89; PULSE 80
[2024-01-09] MEDS: traMADol 50 MG Tablet PO (21:05)
[2024-01-09 21:41] LABS: Bedside Glucose 202 mg/dL (74-106)
[2024-01-10] MEDS: oxyCODONE 5 MG Tablet 2.5 MG PO (01:58)
[2024-01-10 06:47] LABS: Bedside Glucose 141 mg/dL (74-106)
[2024-01-10 08:05] VITALS: BP 140/81; PULSE 75; RESP 18; TEMP 36.6; O2SAT 97
[2024-01-10] MEDS: 0.9% Saline Lock 10 ML Syringe IV (08:10)
[2024-01-10] MEDS: Polyethylene Glycol 3350 17 GM PACKET PO (08:14)
[2024-01-10] MEDS: NETARSUDIL MESYLAT/LATANOPROST 2.5 ML DROPS EACH EYE (08:14)
[2024-01-10 08:16] VITALS: PULSE 75
[2024-01-10] MEDS: Fluticasone/Salmeterol 232-14 Inhaler 1 PUFF INHALATION ×2 (08:16→21:28)
[2024-01-10] MEDS: Metoprolol Tartrate 25 MG Tablet PO ×2 (08:16→21:24)
[2024-01-10] MEDS: Magnesium Chloride 64 MG Delay Rel.Tablet 128 MG PO ×2 (08:16→21:26)
[2024-01-10] MEDS: Senna/Docusate Sodium 1 Tablet 2 TABLET PO (08:16)
[2024-01-10] MEDS: APIXABAN 2.5 MG TABLET (WCH) PO ×2 (08:16→21:26)
[2024-01-10] MEDS: Azelastine HCl NASAL.SRY 1 SPRAY NASAL ×2 (08:16→21:27)
[2024-01-10] MEDS: LINAGLIPTIN 5 MG TABLET PO (08:17)
[2024-01-10] MEDS: Multivitamins,Therapeutic Tablet 1 TABLET PO (08:17)
[2024-01-10] MEDS: Menthol/Lanolin/Calamine/Znox 113 GM Tube 1 APPLIC TOPICAL ×2 (08:17→21:26)
[2024-01-10] MEDS: Empagliflozin 10 MG Tablet PO (08:17)
[2024-01-10] MEDS: dilTIAZem CD 180 MG Capsule PO (08:17)
[2024-01-10] MEDS: Petrolatum 33% Tube 1 APPLIC TOPICAL ×2 (08:18→21:29)
[2024-01-10] MEDS: Insulin Lispro 100 UNIT/ML INSULN.PEN SC ×3 (08:18→17:45)
[2024-01-10] MEDS: Insulin Glargine-YFGN 100 UNIT/ML Pen 10 UNIT SC ×2 (08:19→21:32)
[2024-01-10] MEDS: Ascorbic Acid 500 MG Tablet 250 MG PO (08:19)
[2024-01-10 11:26] LABS: Bedside Glucose 199 mg/dL (74-106)
[2024-01-10 16:40] LABS: Bedside Glucose 175 mg/dL (74-106)
[2024-01-10] MEDS: traMADol 50 MG Tablet PO (20:05)
[2024-01-10 20:25] VITALS: PULSE 88; RESP 16; O2SAT 98
[2024-01-10] MEDS: Gabapentin 100 MG Capsule PO (21:22)
[2024-01-10 21:24] VITALS: BP 131/67; PULSE 88
[2024-01-10] MEDS: Pravastatin 20 MG Tablet PO (21:26)
[2024-01-10] MEDS: Pantoprazole Sodium 40 MG Tablet PO (21:26)
[2024-01-10 21:31] LABS: Bedside Glucose 247 mg/dL (74-106)
[2024-01-11] MEDS: Acetaminophen 500 MG Tablet 1000 MG PO ×2 (00:29→19:41)
[2024-01-11] MEDS: traMADol 50 MG Tablet PO ×3 (05:30→21:46)
[2024-01-11 06:38] LABS: Bedside Glucose 155 mg/dL (74-106)
[2024-01-11] MEDS: Insulin Lispro 100 UNIT/ML INSULN.PEN SC ×3 (07:00→18:23)
[2024-01-11 08:09] VITALS: BP 150/60; PULSE 74; RESP 16; TEMP 36.2; O2SAT 96
[2024-01-11] MEDS: Ascorbic Acid 500 MG Tablet 250 MG PO (08:13)
[2024-01-11 08:14] VITALS: PULSE 74
[2024-01-11] MEDS: Magnesium Chloride 64 MG Delay Rel.Tablet 128 MG PO ×2 (08:14→20:11)
[2024-01-11] MEDS: Multivitamins,Therapeutic Tablet 1 TABLET PO (08:14)
[2024-01-11] MEDS: Metoprolol Tartrate 25 MG Tablet PO ×2 (08:14→20:11)
[2024-01-11] MEDS: APIXABAN 2.5 MG TABLET (WCH) PO ×2 (08:14→20:11)
[2024-01-11] MEDS: Senna/Docusate Sodium 1 Tablet 2 TABLET PO ×2 (08:14→20:15)
[2024-01-11] MEDS: LINAGLIPTIN 5 MG TABLET PO (08:14)
[2024-01-11] MEDS: dilTIAZem CD 180 MG Capsule PO (08:15)
[2024-01-11] MEDS: Insulin Glargine-YFGN 100 UNIT/ML Pen 10 UNIT SC ×2 (08:15→21:40)
[2024-01-11] MEDS: Empagliflozin 10 MG Tablet PO (08:15)
[2024-01-11] MEDS: Petrolatum 33% Tube 1 APPLIC TOPICAL ×2 (08:15→20:12)
[2024-01-11] MEDS: Azelastine HCl NASAL.SRY 1 SPRAY NASAL ×2 (08:16→20:14)
[2024-01-11] MEDS: Menthol/Lanolin/Calamine/Znox 113 GM Tube 1 APPLIC TOPICAL ×2 (08:16→20:15)
[2024-01-11] MEDS: NETARSUDIL MESYLAT/LATANOPROST 2.5 ML DROPS EACH EYE (08:17)
[2024-01-11] MEDS: Fluticasone/Salmeterol 232-14 Inhaler 1 PUFF INHALATION ×2 (08:17→20:10)
[2024-01-11] MEDS: 0.9% Saline Lock 10 ML Syringe IV ×2 (08:22→20:16)
--- NOTE | 2024-01-11 10:33 | RAD_ITS ---
STUDY: X-RAY - PELVIS AND LEFT HIP REASON FOR EXAM: Female, 79 years old. F/U of Left Hip Fracture - HIP LT WB Pelvis W/Hip AP Crossfire TECHNIQUE: 3 views of the pelvis and left hip. COMPARISON: None. FINDINGS: There is a non-specific bowel gas pattern. There is stimulator battery pack overlying the right pelvis. There are atherosclerotic vascular calcifications of the femoral arteries. Normal bilateral iliac wings, sacroiliac joints and visualized sacrum. Normal bilateral superior and inferior pubic rami. Normal pubic symphysis. Normal bilateral ischial tuberosities. There is a left hip arthroplasty in place. There is no periprosthetic fracture. RAD/HIP, UNI W/ Pelvis 2-3 Views IMPRESSION: Left hip arthroplasty, with no periprosthetic fracture. Electronically Signed: Eric Mendez MD at 10:48 EDT ,
[2024-01-11 11:31] LABS: Bedside Glucose 155 mg/dL (74-106)
[2024-01-11 18:39] LABS: Bedside Glucose 221 mg/dL (74-106)
[2024-01-11 20:08] VITALS: BP 119/43; PULSE 80
[2024-01-11 20:11] VITALS: BP 119/43; PULSE 80
[2024-01-11] MEDS: Pantoprazole Sodium 40 MG Tablet PO (20:14)
[2024-01-11] MEDS: Pravastatin 20 MG Tablet PO (20:14)
[2024-01-11 21:31] LABS: Bedside Glucose 162 mg/dL (74-106)
[2024-01-11] MEDS: Gabapentin 100 MG Capsule PO (21:46)
[2024-01-12 06:24] LABS: Bedside Glucose 115 mg/dL (74-106)
[2024-01-12] MEDS: Azelastine HCl NASAL.SRY 1 SPRAY NASAL ×2 (08:40→20:27)
[2024-01-12] MEDS: Fluticasone/Salmeterol 232-14 Inhaler 1 PUFF INHALATION ×2 (08:40→20:26)
[2024-01-12] MEDS: Petrolatum 33% Tube 1 APPLIC TOPICAL ×2 (08:41→20:25)
[2024-01-12] MEDS: NETARSUDIL MESYLAT/LATANOPROST 2.5 ML DROPS EACH EYE (08:42)
[2024-01-12] MEDS: Ascorbic Acid 500 MG Tablet 250 MG PO (08:45)
[2024-01-12] MEDS: Insulin Glargine-YFGN 100 UNIT/ML Pen 10 UNIT SC ×2 (08:45→21:46)
[2024-01-12] MEDS: Insulin Lispro 100 UNIT/ML INSULN.PEN SC ×3 (08:45→17:53)
[2024-01-12] MEDS: Empagliflozin 10 MG Tablet PO (08:46)
[2024-01-12] MEDS: LINAGLIPTIN 5 MG TABLET PO (08:46)
[2024-01-12] MEDS: dilTIAZem CD 180 MG Capsule PO (08:46)
[2024-01-12 08:47] VITALS: BP 134/64; PULSE 69
[2024-01-12] MEDS: Senna/Docusate Sodium 1 Tablet 2 TABLET PO ×2 (08:47→20:25)
[2024-01-12] MEDS: Metoprolol Tartrate 25 MG Tablet PO ×2 (08:47→20:27)
[2024-01-12] MEDS: Multivitamins,Therapeutic Tablet 1 TABLET PO (08:47)
[2024-01-12] MEDS: Magnesium Chloride 64 MG Delay Rel.Tablet 128 MG PO ×2 (08:47→20:25)
[2024-01-12] MEDS: APIXABAN 2.5 MG TABLET (WCH) PO ×2 (08:51→20:24)
[2024-01-12] MEDS: Menthol/Lanolin/Calamine/Znox 113 GM Tube 1 APPLIC TOPICAL ×2 (08:58→20:23)
--- NOTE | 2024-01-12 09:23 | MDS.RN ---
Information for the MDS was obtained from review of the clinical record, interview of resident, staff, and direct observation of resident?s care.
[2024-01-12 09:49] VITALS: BMI 30.9
[2024-01-12 11:29] LABS: Bedside Glucose 127 mg/dL (74-106)
[2024-01-12] MEDS: 0.9% Saline Lock 10 ML Syringe IV ×2 (12:10→20:23)
[2024-01-12 14:04] VITALS: BP 128/64; PULSE 74; RESP 16; TEMP 36.8; O2SAT 98
[2024-01-12 16:59] LABS: Bedside Glucose 186 mg/dL (74-106)
--- NOTE | 2024-01-12 17:00 | CASEMGMT ---
Social Work SW met with patient at bedside to discuss care plans. Patient has upcoming [facility] insurance review 01/14 to determine continued coverage for care. Patient informed SW that she would like to return home with assistance. Patient informed SW that she will need to consider intermodal dispatcher care placement or 24/hr care in home. Patient adamantly declined placement at snf. Patient informed SW that she will not go to snf. SW informed patient that [facility] is unable to accept patient back to program. SW expressed concerns for recurrent falls in home and patient non-compliance with use of medical alert device. Patient acknowledged that she is non-compliant with medical alert device. Patient informed SW that the device is located by the phone. SW informed patient that it would be useful to have on person. The patient inquired about additional resources for in home care. Patient informed SW that she would like to have assistance with medication management, transportation, and therapy. SW discuss Area agency on Aging. Patient is agreeable for SW to submit referral for halfway care services. SW discussed LONG-TERM. Patient informed SW that she does not have finances to support moving to an [place]. Patient wants to return home. SW inquired about Medicaid for patient. Patient informed SW that she attempted to obtain Medicaid in the past, but they required husbands income information. Patient did not want to provide husbands financial information. SW informed patient of risk of returning home without support. SW to submit referral to [facility] on [facility]ging for additional halfway care support. APOLLO Lowe
[2024-01-12 20:15] VITALS: PULSE 82; RESP 16
[2024-01-12] MEDS: traMADol 50 MG Tablet PO (20:23)
[2024-01-12] MEDS: Pravastatin 20 MG Tablet PO (20:24)
[2024-01-12] MEDS: Pantoprazole Sodium 40 MG Tablet PO (20:24)
[2024-01-12 20:27] VITALS: BP 126/61; PULSE 81
[2024-01-12 20:33] VITALS: BP 126/61; PULSE 82
[2024-01-12] MEDS: Gabapentin 100 MG Capsule PO (21:46)
[2024-01-12 21:49] LABS: Bedside Glucose 206 mg/dL (74-106)
[2024-01-13 06:24] LABS: Bedside Glucose 128 mg/dL (74-106)
[2024-01-13] MEDS: Azelastine HCl NASAL.SRY 1 SPRAY NASAL ×2 (08:47→21:54)
[2024-01-13] MEDS: Fluticasone/Salmeterol 232-14 Inhaler 1 PUFF INHALATION ×2 (08:47→21:55)
[2024-01-13] MEDS: Petrolatum 33% Tube 1 APPLIC TOPICAL ×2 (08:48→21:57)
[2024-01-13] MEDS: NETARSUDIL MESYLAT/LATANOPROST 2.5 ML DROPS EACH EYE (08:48)
[2024-01-13] MEDS: Insulin Lispro 100 UNIT/ML INSULN.PEN SC ×3 (08:52→17:50)
[2024-01-13 08:53] VITALS: BP 142/85; PULSE 77
[2024-01-13] MEDS: Metoprolol Tartrate 25 MG Tablet PO ×2 (08:53→21:56)
[2024-01-13] MEDS: Multivitamins,Therapeutic Tablet 1 TABLET PO (08:53)
[2024-01-13] MEDS: Empagliflozin 10 MG Tablet PO (08:54)
[2024-01-13] MEDS: dilTIAZem CD 180 MG Capsule PO (08:54)
[2024-01-13] MEDS: APIXABAN 2.5 MG TABLET (WCH) PO ×2 (08:54→21:55)
[2024-01-13] MEDS: Magnesium Chloride 64 MG Delay Rel.Tablet 128 MG PO ×2 (08:55→21:55)
[2024-01-13] MEDS: Ascorbic Acid 500 MG Tablet 250 MG PO (08:55)
[2024-01-13] MEDS: LINAGLIPTIN 5 MG TABLET PO (08:55)
[2024-01-13] MEDS: Senna/Docusate Sodium 1 Tablet 2 TABLET PO ×2 (08:55→21:55)
--- NOTE | 2024-01-13 11:24 | NURSING ---
Midline removed per order. Tip Intact pt tolerated well dressing applied to remain in place for 24hrs.
[2024-01-13 11:26] LABS: Bedside Glucose 185 mg/dL (74-106)
[2024-01-13] MEDS: Acetaminophen 500 MG Tablet 1000 MG PO (12:41)
[2024-01-13] MEDS: Menthol/Lanolin/Calamine/Znox 113 GM Tube 1 APPLIC TOPICAL ×2 (12:44→21:57)
[2024-01-13 16:00] VITALS: BP 130/49; PULSE 72; RESP 16; TEMP 36.2; O2SAT 97
[2024-01-13 17:16] LABS: Bedside Glucose 213 mg/dL (74-106)
[2024-01-13 21:47] LABS: Bedside Glucose 244 mg/dL (74-106)
[2024-01-13] MEDS: Pantoprazole Sodium 40 MG Tablet PO (21:55)
[2024-01-13] MEDS: Gabapentin 100 MG Capsule PO (21:55)
[2024-01-13 21:56] VITALS: BP 148/73; PULSE 75
[2024-01-13] MEDS: Insulin Glargine-YFGN 100 UNIT/ML Pen 10 UNIT SC (21:56)
[2024-01-13] MEDS: Pravastatin 20 MG Tablet PO (21:57)
[2024-01-14 06:26] LABS: Absolute Lymphocyte Count 2.07 X10^3/uL (0.83-4.51); Absolute Neutrophil Count 4.5 X10^3/uL (2.0-7.7); Basophil# 0.06 X10^3/uL; Basophil% 0.8 % (0-1); Eosinophil# 0.37 X10^3/uL; Eosinophils% 4.8 % (0-5); Hematocrit 29.3 % (37-47); Hemoglobin 8.7 g/dL (12.0-15.0); Lymphocyte # 2.07 X10^3/ul (0.83-4.51); Lymphocyte % 27.1 % (19-41); Mean Corp Hgb Conc 29.7 g/dL (32-36); Mean Corpuscular Hgb 26.2 pg (27.0-32.0); Mean Corpuscular Volume 88.3 fL (81-99); Mean Platelet Vol. 9.4 fl (6.2-12.0); Monocyte# 0.65 X10^3/uL; Monocyte% 8.5 % (0-10); NRBC Flagged by Analyzer 0 % (0-5); Neutrophil # 4.46 X10^3/uL (2.7-7.7); Neutrophil % 58.3 % (47-70); Platelet Count 492 K/mm3 (150-450); RBC Distribution Width CV 15.4 % (11.6-14.6); RBC Distribution Width SD 49.7 fl (35.1-43.9); Red Blood Count 3.32 M/mm3 (4.2-5.4); White Blood Count 7.7 K/mm3 (4.4-11.0)
[2024-01-14 06:39] LABS: Bedside Glucose 159 mg/dL (74-106)
[2024-01-14 07:01] LABS: Anion Gap 4 (5-15); BUN 22 mg/dL (7-18); Calcium,Total 10.2 mg/dL (8.5-10.1); Chloride 106 mmol/L (98-107); EST Glomerular Filtration Rate 51 mL/min (>60); Est Glom Filt Rate - Afr Amer 62 mL/min (>60); Estimated Creatinine Clearance 40.68 ml/min; Glucose 182 mg/dL (74-106); Potassium 4.8 mmol/L (3.5-5.1); Sodium Level 138 mmol/L (136-145)
[2024-01-14] MEDS: Insulin Lispro 100 UNIT/ML INSULN.PEN SC ×3 (09:02→17:07)
[2024-01-14] MEDS: Ascorbic Acid 500 MG Tablet 250 MG PO (09:03)
[2024-01-14] MEDS: APIXABAN 2.5 MG TABLET (WCH) PO ×2 (09:04→20:01)
[2024-01-14] MEDS: Magnesium Chloride 64 MG Delay Rel.Tablet 128 MG PO ×2 (09:04→20:01)
[2024-01-14] MEDS: traMADol 50 MG Tablet PO ×2 (09:04→23:00)
[2024-01-14] MEDS: Senna/Docusate Sodium 1 Tablet 2 TABLET PO ×2 (09:04→20:02)
[2024-01-14 09:05] VITALS: PULSE 81
[2024-01-14] MEDS: dilTIAZem CD 180 MG Capsule PO (09:05)
[2024-01-14] MEDS: Empagliflozin 10 MG Tablet PO (09:05)
[2024-01-14] MEDS: Metoprolol Tartrate 25 MG Tablet PO ×2 (09:05→20:02)
[2024-01-14] MEDS: LINAGLIPTIN 5 MG TABLET PO (09:05)
[2024-01-14] MEDS: Insulin Glargine-YFGN 100 UNIT/ML Pen 10 UNIT SC ×2 (09:09→22:58)
[2024-01-14] MEDS: Multivitamins,Therapeutic Tablet 1 TABLET PO (09:10)
[2024-01-14] MEDS: Menthol/Lanolin/Calamine/Znox 113 GM Tube 1 APPLIC TOPICAL ×2 (09:10→20:05)
[2024-01-14 09:12] VITALS: BP 173/60; PULSE 81; RESP 18; TEMP 36.6; O2SAT 99
[2024-01-14] MEDS: NETARSUDIL MESYLAT/LATANOPROST 2.5 ML DROPS EACH EYE (09:12)
[2024-01-14] MEDS: Azelastine HCl NASAL.SRY 1 SPRAY NASAL ×2 (09:12→20:00)
[2024-01-14] MEDS: Polyethylene Glycol 3350 17 GM PACKET PO (09:12)
[2024-01-14] MEDS: Fluticasone/Salmeterol 232-14 Inhaler 1 PUFF INHALATION ×2 (09:13→20:00)
[2024-01-14] MEDS: Petrolatum 33% Tube 1 APPLIC TOPICAL ×2 (09:13→20:00)
[2024-01-14 11:40] LABS: Bedside Glucose 159 mg/dL (74-106)
[2024-01-14 16:55] LABS: Bedside Glucose 210 mg/dL (74-106)
[2024-01-14] MEDS: Acetaminophen 500 MG Tablet 1000 MG PO (19:59)
[2024-01-14 20:02] VITALS: BP 148/50; PULSE 76
[2024-01-14] MEDS: Pravastatin 20 MG Tablet PO (20:02)
[2024-01-14] MEDS: Pantoprazole Sodium 40 MG Tablet PO (20:02)
[2024-01-14 20:08] VITALS: BP 148/50; PULSE 76
[2024-01-14 22:01] LABS: Bedside Glucose 179 mg/dL (74-106)
[2024-01-14] MEDS: Gabapentin 100 MG Capsule PO (22:57)
[2024-01-15 05:45] VITALS: RESP 16
[2024-01-15] MEDS: traMADol 50 MG Tablet PO ×2 (05:51→21:44)
[2024-01-15 06:57] LABS: Bedside Glucose 128 mg/dL (74-106)
[2024-01-15 08:55] VITALS: BP 150/51; PULSE 72; RESP 16; TEMP 36.6; O2SAT 98
[2024-01-15] MEDS: APIXABAN 2.5 MG TABLET (WCH) PO ×2 (09:02→21:47)
[2024-01-15] MEDS: Azelastine HCl NASAL.SRY 1 SPRAY NASAL ×2 (09:02→21:45)
[2024-01-15 09:03] VITALS: PULSE 72
[2024-01-15] MEDS: LINAGLIPTIN 5 MG TABLET PO (09:03)
[2024-01-15] MEDS: Magnesium Chloride 64 MG Delay Rel.Tablet 128 MG PO ×2 (09:03→21:49)
[2024-01-15] MEDS: Ascorbic Acid 500 MG Tablet 250 MG PO (09:03)
[2024-01-15] MEDS: Multivitamins,Therapeutic Tablet 1 TABLET PO (09:03)
[2024-01-15] MEDS: Metoprolol Tartrate 25 MG Tablet PO ×2 (09:03→21:48)
[2024-01-15] MEDS: Senna/Docusate Sodium 1 Tablet 2 TABLET PO ×2 (09:03→21:48)
[2024-01-15] MEDS: NETARSUDIL MESYLAT/LATANOPROST 2.5 ML DROPS EACH EYE (09:04)
[2024-01-15] MEDS: Menthol/Lanolin/Calamine/Znox 113 GM Tube 1 APPLIC TOPICAL ×2 (09:04→21:46)
[2024-01-15] MEDS: Petrolatum 33% Tube 1 APPLIC TOPICAL ×2 (09:04→21:46)
[2024-01-15] MEDS: dilTIAZem CD 180 MG Capsule PO (09:04)
[2024-01-15] MEDS: Fluticasone/Salmeterol 232-14 Inhaler 1 PUFF INHALATION ×2 (09:04→21:46)
[2024-01-15] MEDS: Empagliflozin 10 MG Tablet PO (09:39)
[2024-01-15 11:30] LABS: Bedside Glucose 210 mg/dL (74-106)
[2024-01-15] MEDS: Insulin Lispro 100 UNIT/ML INSULN.PEN SC ×2 (12:21→17:35)
--- NOTE | 2024-01-15 13:53 | DS.PCM_ITS ---
Providers Date of Admission: 12/30/23 Primary Care Physician: Dr. Ramone Smiley MD Reason For Visit: LEFT HIP FRACTURE Diagnosis Discharge Diagnosis (1) Poor venous access: Status: Acute Code(s): I87.8 - Other specified disorders of veins Plan 78 year old female with below past medical history hospitalized for left hip fracture, underwent left hip hemiarthroplasty 12/28/[address] Byrd, admitted to TCU with debility, here for rehabilitation, strengthening, prior to discharge home with . * Debility - PT/OT. * Pain - Tylenol 1000mg q8, Oxycodone 2.5mg q4 prn pain (4-10). * Bowel - Miralax 17gm daily, senna/colace 2 tablets bid, Dulcolax 10mg pr daily prn. * Adult immunization - Administer pneumonia vaccine, covid vaccine, flu vaccine as appropriate. * DVT - Eliquis 2.5mg bid thru 01/29/2024. * COPD - Advair 232-14 2 puffs bid, Albuterol 2 puffs q4h prn. * Vitamin C deficiency - Vitamin C 250mg daily. * Allergic rhinitis - Astelin 1 spray nasal bid. * Hypertension - Metoprolol 25mg bid, Diltiazem 180mg daily. * Coronary artery disease - Metoprolol 25mg bid, restart Aspirin 81mg daily 01/30/2024 after Eliquis. * Diabetes Mellitus II - Trulicity 0.75mg qweek, Jardiance 10mg daily, Tradjenta 5mg daily, Glargine 15 units bid, Lispro 8 units tidac. * Diabetic polyneuropathy - Gabapentin 100mg qhs. * Hypomagnesemia - Magnesium chloride 128mg bid. * Nutrition - MVI 1 tablet daily. * GERD - Pantoprazole 40mg qhs. * Hyperlipidemia - Pravastatin 20mg qhs. * Fever - order cbcd, bmp, ua, c+s, CXR, KUB, blood cultures x 2, covid/flu/rsv swab. Medications at Discharge Home Medications aspirin 81 mg chewable tablet 81 mg PO DAILY HERT HEALTH 01/21/16 albuterol sulfate 90 mcg/actuation aerosol inhaler 2 puff inhalation Q4H PRN Sob &/Or Wheezing 08/16/18 diltiazem HCl 180 mg tablet,extended release 24 hr 180 mg PO DAILY BLOOD PRESSURE 08/16/18 magnesium oxide 400 mg (241.3 mg magnesium) tablet 400 mg PO BID SUPPLEMENT 08/16/18 metoprolol tartrate 25 mg tablet 25 mg PO BID BLOOD PRESSURE 08/16/18 pantoprazole 40 mg tablet,delayed release 40 mg PO QHS ACID REFLUX 12/02/19 empagliflozin 10 mg tablet (Jardiance) 10 mg PO DAILY DIABETES 10/18/20 sitagliptin phosphate 50 mg tablet (Januvia) 50 mg PO DAILY DIABETES 10/18/20 budesonide-formoterol HFA 160 mcg-4.5 mcg/actuation aerosol inhaler (Symbicort) 2 puff inhalation BID lungs 12/06/21 multivitamin 1 tab PO DAILY VITAMIN 12/06/21 pravastatin 20 mg tablet 20 mg PO DAILY CHOLESTEROL 12/06/21 ascorbic acid (vitamin C) 250 mg tablet (Vitamin C) 250 mg PO DAILY SUPPLEMENT 08/13/23 azelastine 137 mcg (0.1 %) nasal spray aerosol 137 mcg intranasal BID RUNNY NOSE 08/13/23 dulaglutide 0.75 mg/0.5 mL subcutaneous pen injector (Trulicity) 0.75 mg subcut MO DIABETES 08/13/23 gabapentin 100 mg capsule 100 mg PO QHS NERVE PAIN 08/13/23 roflumilast 500 mcg tablet 500 mcg PO DAILY COPD 08/13/23 insulin glargine-yfgn 100 unit/mL (3 mL) subcutaneous pen 15 unit (0.15 mL) subcut BID diabetes-long acting insulin #0 mL 12/30/23 insulin lispro 100 unit/mL subcutaneous pen (Humalog KwikPen (U-100) Insulin) 8 unit subcut TIDAC short acting insulin 12/30/23 acetaminophen 500 mg tablet 1,000 mg (2 x 500 mg) PO Q6H PRN PRN Pain Score 1-3 #0 tabs 01/15/24 apixaban 5 mg tablet (Eliquis) 2.5 mg (1/2 x 5 mg) PO BID 11 days #11 tabs 01/15/24 netarsudil 0.02 %-latanoprost 0.005 % eye drops (Rocklatan) 0 drp EACH EYE DAILY #0 mL 01/15/24 tramadol 50 mg tablet 50 mg PO Q6H PRN PRN Pain Score 4-5 Or Pre Pt/Ot 7 days #28 tabs 01/15/24 Hospital Course Operations - (Left hip hemiarthroplasty.) Procedures None Summary of Care Provided Minutes Spent on Discharge: 35 Hospital Course: 78 year old female with below past medical history hospitalized for left hip fracture, underwent left hip hemiarthroplasty 12/28/[address] Byrd, admitted to TCU with debility, here for rehabilitation, strengthening, prior to discharge home with . Discharge home with 01/18/2024, [facility] PT/OT/SN/DARKLIGHT INSPECTOR/SURFACE GRINDER TENDER. Physical Exam Const alert General Appearance: cooperative HEENT normocephalic Eyes PERRL and EOMs intact bilaterally Neck supple, no JVD and no carotid bruits Resp normal respiratory effort, normal air movement and clear to auscultation bilaterally Cardio regular rate and regular rhythm GI normal to inspection, nondistended, normoactive bowel sounds, non-tender and non-distended Extremity normal capillary refill General Extremity: Negative for edema Skin no rashes or lesions noted General Skin Exam: no breakdown Psych affect normal Appearance: appropriate Weight / BMI Weight Weight: 79.333 kg Body Mass Index (BMI) 30.9 ABG / Lab / Microbiology Data 01/14/24 05:45 01/14/24 05:45 Laboratory: Laboratory Results - last 24 hr 01/14/24 16:37: POC Glucose 210 H 01/14/24 21:42: POC Glucose 179 H 01/15/24 06:27: POC Glucose 128 H 01/15/24 11:09: POC Glucose 210 H Microbiology: Microbiology 12/30/23 16:45 Blood Culture (Wb) - Right Hand Blood Culture - Final No growth in 5 days. 12/30/23 16:37 Blood Culture (Wb) - Anticubital Right Blood Culture - Final No growth in 5 days. 12/30/23 18:15 Urine Catheter - Catheter Urine Culture - Final Klebsiella pneumoniae sp pneum 12/30/23 16:37 Mucosa - Nasopharyngeal Influenza & RSV (PCR) - Final 12/30/23 16:50 Nasal Secretion SARS-CoV-2 Antigen (Rapid) - Final D/C Instructions Discharge Diet: No restrictions Discharge Activity: Return to Normal Activity, May Shower and Use Walker Weight Bearing Status: Weight bearing as tolerated Call your doctor if you observe: Fever of 101 or Higher, Inability to urinate, Inability to have a bowel movement, Shortness of breath, Dizziness, Fainting spells, Swelling in the ankles, Chest pain and Uncontrolled pain Additional Instructions: Discharge home with 01/18/2024, [facility] PT/OT/SN/DARKLIGHT INSPECTOR/SURFACE GRINDER TENDER Please Follow Up With: Gabriel Byrd MD When: As scheduled. Meaningful Use Info Meaningful Use Meaningful Use Diagnoses (Choose all that apply): None applicable Ischemic Stroke Statin Dosing Therapy Reference: STATIN DOSE THERAPY REFERENCE: * Patients > 75 years receive moderate or high dose statin therapy. * Patients 75 years or YOUNGER should receive HIGH intensity statin dose unless contraindicated. You will be required to document reason for non-treatment if statin daily dose does not meet guidelines. HIGH DOSE STATIN THERAPY DAILY Atorvastatin > than or = to 40 mg Rosuvastatin > than or = to 20 mg Amlodipine + Atorvastatin > than or = to 2.5/40 mg Ezetimibe + Simvastatin 10/80 mg Simvastatin 80mg Discharge Plan Admission Admit Date/Time: 12/30/23 15:03 Primary Reason for Your Visit: Debility. Attending Provider: Mundo Villegas Chi Primary Care Provider: Ramone Smiley Instructions Additional Instructions / Restrictions: Discharge home with 01/18/2024, [facility] PT/OT/SN/DARKLIGHT INSPECTOR/SURFACE GRINDER TENDER Discharge Orders/Prescriptions Prescriptions: New acetaminophen 500 mg Tablet 1,000 mg PO Q6H PRN PRN (Reason: Pain Score 1-3) Qty: 0 0RF tramadol 50 mg Tablet 50 mg PO Q6H PRN PRN (Reason: Pain Score 4-5 Or Pre Pt/Ot) 7 Days Qty: 28 0RF Eliquis 5 mg Tablet 2.5 mg PO BID 11 Days Qty: 11 0RF Rocklatan 0.02-0.005 % Drops 0 drp EACH EYE DAILY Qty: 0 0RF Continued Januvia 50 mg tablet 50 mg PO DAILY Jardiance 10 mg tablet 10 mg PO DAILY multivitamin Tablet 1 tab PO DAILY pravastatin 20 mg tablet 20 mg PO DAILY budesonide-formoterol [Symbicort] 160-4.5 mcg/actuation HFA aerosol inhaler 2 puff inhalation BID aspirin 81 MG tablet,chewable 81 mg PO DAILY metoprolol tartrate 25 MG tablet 25 mg PO BID magnesium oxide 400 MG tablet 400 mg PO BID diltiazem HCl 180 MG tablet extended release 24 hr 180 mg PO DAILY albuterol sulfate 1 INHALER inhaler 2 puff INHALATION Q4H PRN (Reason: Sob &/Or Wheezing) pantoprazole 40 MG tablet 40 mg PO QHS gabapentin 100 mg capsule 100 mg PO QHS roflumilast 500 mcg tablet 500 mcg PO DAILY Trulicity 0.75 mg/0.5 mL pen injector 0.75 mg subcut MO ascorbic acid (vitamin C) [Vitamin C] 250 mg tablet 250 mg PO DAILY azelastine 137 mcg (0.1 %) aerosol,spray 137 mcg intranasal BID insulin glargine-yfgn 100 unit/mL (3 mL) Insulin Pen 15 unit subcut BID Qty: 0 0RF Rx Instructions: Hold if glucose less than 130 mg/dl insulin lispro [Humalog KwikPen Insulin] 100 unit/mL Insulin Pen 8 unit subcut TIDAC Rx Instructions: Hold if glucose less than 130 mg/dl Discontinued cod liver oil Capsule 1 cap PO DAILY sennosides-docusate sodium [Stool Softener-Stimulant Laxat] 8.6-50 mg Tablet 2 tab PO BID Qty: 0 0RF Rx Instructions: Hold if more than 1 bowel movement per day oxycodone 5 mg Tablet 2.5 mg PO Q4H PRN PRN (Reason: Pain Score 4-10) 3 Days Qty: 0 0RF Rx Instructions: Oxycodone 2.5 mg for moderate pain and 5 mg for severe pain respectively. insulin lispro [Humalog KwikPen Insulin] 100 unit/mL Insulin Pen See Protocol subcut ACHS Qty: 0 0RF Protocol: 4. Sliding Scale Insulin High-Med Dosing Condition: 150-199 mg/dl = 2 units Condition: 200-259 mg/dl = 4 units Condition: 260-324 mg/dl = 6 units Condition: 325-374 mg/dl = 8 units Condition: 375-409 mg/dl = 10 units Condition: 410-449 mg/dl = 11 units Condition: Greater than 449 call physician Protocol Text: - Use for Total Daily Dose of Insulin 56-80 units - Patient who are insulin resistant or septic HIGH MEDIUM DOSING ALGORITHM acetaminophen 500 mg Tablet 1,000 mg PO Q8 Qty: 0 0RF Eliquis 2.5 mg tablet 2.5 mg PO BID 30 Days Qty: 60 0RF Rx Instructions: Post hip replacement DVT prophylaxis polyethylene glycol 3350 [Miralax] 17 gram/dose powder 17 g PO DAILY Qty: 238 0RF bisacodyl 10 mg Suppository 10 mg MT DAILY PRN (Reason: constipation) Referrals / Follow Up: Ramone Smiley MD [Primary Care Provider] - Disposition Disposition (needs filled in before D/C Order can be placed): Home Health Service
--- NOTE | 2024-01-15 13:56 | CASEMGMT ---
Addendum entered by Dave Velasco 01/15/24 16:06: MILE received notification from [facility] Orquidea Ortiz that the patient has been accepted for home health care services. Start of care 01/19/2024 Patient plans to transition from mccall to start straight cathing with nursing support per bedside RN. Patient will train of car transferring with therapy on 01/16/2024 at 1PM SW provided update to patient. Addendum entered by Dave Velasco 01/15/24 16:00: MILE provided update regarding discharge to patient's Sarita. Patient referral is currently being reviewed by [facility] for home health care arrangements. Addendum entered by Dave Velasco 01/15/24 14:27: MILE completed MDS with patient. BIM () and PhQ-2 (). Original Note: Social Work MILE received [employer] Notice of Medicare Non-Coverage for current [facility] services effective date: 01/17/2024; anticipate discharge 01/18/2024. MILE contacted patient's son, Sarita Piper to notify of NOMNC. SW discussed therapy concerns for patient returning home due to confusion and recurrent falls. Sarita informed SW that patient is not agreeable to placement. Sarita inquired about additional resources. SW informed Sarita of referral to [facility] and referral for Home health care services. Patient will require PT/OT/ST/SN/ SOUNDSCRIBER MECHANIC/REVISING CLERK. Sarita informed MILE that he can provide transportation on 01/18/2024 at 1PM. MILE met with patient at bedside to notify of NOMNC. Patient was notified by son prior to SW entering room. SW informed patient of her Medicare Right to appeal discharge, should she disagree with determination. Patient informed SW that she is agreeable to discharge at this time. Patient informed SW that she previously had home health care via [facility]. Patient requested for home health care services to be provided by [facility]. MILE contacted [facility] to notify of home health request. MILE reviewed disciplines with the patient. The patient informed MILE that she is agreeable to PT/OT/ST/REVISING CLERK/SOUNDSCRIBER MECHANIC/SN services in the home. SW discussed referral for [facility] with patient and discussed transportation resources via [employer]. Patient informed SW that she has been in contact with [employer] to arrange transportation to PCP follow up appointment. SW encouraged patient to practice car transfers with therapy prior to discharge. SW submitted referral to [facility] SW informed front tender to provide PCP appointment information to patient, to assist with arranging transportation ahead of time. Discharge: Home with Home Health PT/OT/ST/SN/REVISING CLERK/SOUNDSCRIBER MECHANIC Physician Dr. Villegas has been notified. APOLLO Lowe
--- NOTE | 2024-01-15 15:03 | NURSING ---
called requesting to speak with nurse, this nurse returned call and Sarita, asking if she is able to return home. Reviewed the social workers note and explained to son that SCHOOL PRINCIPAL spoke with his son Sarita regarding discharge on Thursday and that she is ready. pt verbalized understanding and thanked this nurse.
[2024-01-15 17:03] LABS: Bedside Glucose 172 mg/dL (74-106)
[2024-01-15 21:38] LABS: Bedside Glucose 140 mg/dL (74-106)
[2024-01-15] MEDS: Insulin Glargine-YFGN 100 UNIT/ML Pen 10 UNIT SC (21:47)
[2024-01-15 21:48] VITALS: BP 148/54; PULSE 73
[2024-01-15] MEDS: Pravastatin 20 MG Tablet PO (21:48)
[2024-01-15] MEDS: Pantoprazole Sodium 40 MG Tablet PO (21:48)
[2024-01-15] MEDS: Gabapentin 100 MG Capsule PO (21:53)
--- NOTE | 2024-01-16 06:03 | NURSING ---
mccall removed per order, tolerated well. Denies requests. Call light in reach
[2024-01-16 06:34] LABS: Bedside Glucose 81 mg/dL (74-106)
[2024-01-16 07:53] VITALS: BP 134/101; PULSE 75; RESP 17; TEMP 36.4; O2SAT 98
[2024-01-16] MEDS: APIXABAN 2.5 MG TABLET (WCH) PO ×2 (08:01→22:15)
[2024-01-16] MEDS: Multivitamins,Therapeutic Tablet 1 TABLET PO (08:01)
[2024-01-16] MEDS: Menthol/Lanolin/Calamine/Znox 113 GM Tube 1 APPLIC TOPICAL ×2 (08:01→22:13)
[2024-01-16] MEDS: Azelastine HCl NASAL.SRY 1 SPRAY NASAL ×2 (08:01→22:14)
[2024-01-16] MEDS: dilTIAZem CD 180 MG Capsule PO (08:01)
[2024-01-16 08:02] VITALS: PULSE 75
[2024-01-16] MEDS: Magnesium Chloride 64 MG Delay Rel.Tablet 128 MG PO ×2 (08:02→22:18)
[2024-01-16] MEDS: Metoprolol Tartrate 25 MG Tablet PO ×2 (08:02→22:20)
[2024-01-16] MEDS: Empagliflozin 10 MG Tablet PO (08:02)
[2024-01-16] MEDS: Fluticasone/Salmeterol 232-14 Inhaler 1 PUFF INHALATION ×2 (08:02→22:15)
[2024-01-16] MEDS: Petrolatum 33% Tube 1 APPLIC TOPICAL ×2 (08:02→22:15)
[2024-01-16] MEDS: Ascorbic Acid 500 MG Tablet 250 MG PO (08:03)
[2024-01-16] MEDS: Senna/Docusate Sodium 1 Tablet 2 TABLET PO ×2 (08:03→22:19)
[2024-01-16] MEDS: NETARSUDIL MESYLAT/LATANOPROST 2.5 ML DROPS EACH EYE (08:03)
[2024-01-16] MEDS: LINAGLIPTIN 5 MG TABLET PO (08:03)
[2024-01-16 11:24] LABS: Bedside Glucose 205 mg/dL (74-106)
[2024-01-16] MEDS: Insulin Lispro 100 UNIT/ML INSULN.PEN SC ×2 (12:06→17:51)
[2024-01-16] MEDS: Acetaminophen 500 MG Tablet 1000 MG PO ×2 (14:04→20:37)
[2024-01-16] MEDS: Albuterol IH (6.7 GM) 1 PUFF INHALER 2 PUFF INHALATION (15:05)
[2024-01-16 16:26] LABS: Bedside Glucose 235 mg/dL (74-106)
[2024-01-16 20:44] VITALS: RESP 16
[2024-01-16 21:43] LABS: Bedside Glucose 210 mg/dL (74-106)
[2024-01-16] MEDS: Insulin Glargine-YFGN 100 UNIT/ML Pen 10 UNIT SC (22:15)
[2024-01-16] MEDS: Pravastatin 20 MG Tablet PO (22:19)
[2024-01-16] MEDS: Pantoprazole Sodium 40 MG Tablet PO (22:19)
[2024-01-16 22:20] VITALS: BP 165/56; PULSE 78
[2024-01-16] MEDS: Gabapentin 100 MG Capsule PO (22:22)
[2024-01-17 06:33] LABS: Bedside Glucose 172 mg/dL (74-106)
[2024-01-17] MEDS: Fluticasone/Salmeterol 232-14 Inhaler 1 PUFF INHALATION ×2 (09:40→22:04)
[2024-01-17] MEDS: Insulin Glargine-YFGN 100 UNIT/ML Pen 10 UNIT SC ×2 (09:41→22:07)
[2024-01-17] MEDS: Azelastine HCl NASAL.SRY 1 SPRAY NASAL ×2 (09:41→22:03)
[2024-01-17] MEDS: Albuterol IH (6.7 GM) 1 PUFF INHALER 2 PUFF INHALATION (09:41)
[2024-01-17] MEDS: LINAGLIPTIN 5 MG TABLET PO (09:47)
[2024-01-17] MEDS: Petrolatum 33% Tube 1 APPLIC TOPICAL ×2 (09:49→22:04)
[2024-01-17] MEDS: Multivitamins,Therapeutic Tablet 1 TABLET PO (09:49)
[2024-01-17] MEDS: Menthol/Lanolin/Calamine/Znox 113 GM Tube 1 APPLIC TOPICAL ×2 (09:49→22:05)
[2024-01-17] MEDS: APIXABAN 2.5 MG TABLET (WCH) PO ×2 (09:49→22:05)
[2024-01-17] MEDS: Ascorbic Acid 500 MG Tablet 250 MG PO (09:50)
[2024-01-17] MEDS: Senna/Docusate Sodium 1 Tablet 2 TABLET PO (09:51)
[2024-01-17] MEDS: NETARSUDIL MESYLAT/LATANOPROST 2.5 ML DROPS EACH EYE (09:52)
[2024-01-17 09:53] VITALS: PULSE 76
[2024-01-17] MEDS: Metoprolol Tartrate 25 MG Tablet PO ×2 (09:53→22:07)
[2024-01-17] MEDS: Magnesium Chloride 64 MG Delay Rel.Tablet 128 MG PO ×2 (09:53→22:04)
[2024-01-17] MEDS: Empagliflozin 10 MG Tablet PO (09:53)
[2024-01-17] MEDS: dilTIAZem CD 180 MG Capsule PO (09:54)
[2024-01-17] MEDS: Insulin Lispro 100 UNIT/ML INSULN.PEN SC ×3 (09:55→17:55)
[2024-01-17 11:15] LABS: Bedside Glucose 167 mg/dL (74-106)
[2024-01-17 14:50] VITALS: BP 157/54; PULSE 78; RESP 18; TEMP 36.6; O2SAT 100
[2024-01-17 16:34] LABS: Bedside Glucose 194 mg/dL (74-106)
[2024-01-17 22:01] LABS: Bedside Glucose 239 mg/dL (74-106)
[2024-01-17] MEDS: Gabapentin 100 MG Capsule PO (22:03)
[2024-01-17 22:07] VITALS: BP 163/62; PULSE 78
[2024-01-17] MEDS: Pantoprazole Sodium 40 MG Tablet PO (22:08)
[2024-01-17] MEDS: Pravastatin 20 MG Tablet PO (22:09)
[2024-01-17] MEDS: Acetaminophen 500 MG Tablet 1000 MG PO (23:00)
[2024-01-18 06:46] LABS: Bedside Glucose 136 mg/dL (74-106)
[2024-01-18] MEDS: Insulin Lispro 100 UNIT/ML INSULN.PEN SC ×2 (08:38→12:01)
[2024-01-18] MEDS: Azelastine HCl NASAL.SRY 1 SPRAY NASAL (08:38)
[2024-01-18] MEDS: Fluticasone/Salmeterol 232-14 Inhaler 1 PUFF INHALATION (08:38)
[2024-01-18] MEDS: NETARSUDIL MESYLAT/LATANOPROST 2.5 ML DROPS EACH EYE (08:38)
[2024-01-18 08:39] VITALS: BP 157/55; PULSE 77
[2024-01-18] MEDS: Metoprolol Tartrate 25 MG Tablet PO (08:39)
[2024-01-18] MEDS: Magnesium Chloride 64 MG Delay Rel.Tablet 128 MG PO (08:39)
[2024-01-18] MEDS: LINAGLIPTIN 5 MG TABLET PO (08:39)
[2024-01-18] MEDS: Multivitamins,Therapeutic Tablet 1 TABLET PO (08:39)
[2024-01-18] MEDS: Insulin Glargine-YFGN 100 UNIT/ML Pen 10 UNIT SC (08:39)
[2024-01-18] MEDS: Menthol/Lanolin/Calamine/Znox 113 GM Tube 1 APPLIC TOPICAL (08:40)
[2024-01-18] MEDS: APIXABAN 2.5 MG TABLET (WCH) PO (08:40)
[2024-01-18] MEDS: dilTIAZem CD 180 MG Capsule PO (08:40)
[2024-01-18] MEDS: Ascorbic Acid 500 MG Tablet 250 MG PO (08:40)
[2024-01-18] MEDS: Senna/Docusate Sodium 1 Tablet 2 TABLET PO (08:40)
[2024-01-18] MEDS: Empagliflozin 10 MG Tablet PO (08:40)
[2024-01-18] MEDS: Petrolatum 33% Tube 1 APPLIC TOPICAL (08:41)
[2024-01-18] MEDS: Acetaminophen 500 MG Tablet 1000 MG PO (10:09)
--- NOTE | 2024-01-18 10:38 | CASEMGMT ---
Addendum entered by Dave Velasco 01/18/24 15:01: 1220 -Patient discharged home with family. Son to supervisor picking crew wheelchair from [facility] branch office. MILE notified patient. Addendum entered by Dave Velasco 01/18/24 12:21: MILE received a return call from [facility] informing SW that the patient may be able to obtain approval for wheelchair with new diagnosis. MILE submitted referral to [facility] via [facility]. Physician, Dr. Villegas notified. MILE notified patient that referral for wheelchair has been submitted. Original Note: Social Work MILE received call from [facility] Admission, Diana informing SW that Start of care will take place on 01/20/2024. SW notified patient at bedside. Patient is requesting for a wheelchair to assist with patient transfer from car into home. SW inquired about the last time the patient ordered walker or wheelchair in the past. Patient informed SW that she ordered a walker within the last 6 months via [employer]. MILE contacted [facility] and spoke with Evaristo who informed MILE that she will review with team to determine, if patient would qualify for a wheelchair. APOLLO Lowe
[2024-01-18 11:39] LABS: Bedside Glucose 153 mg/dL (74-106)
[2024-01-18 13:32] VITALS: BP 140/72; PULSE 80; RESP 20; TEMP 36.8; O2SAT 98
--- NOTE | 2024-01-20 13:21 | CASEMGMT ---
Social Work 01/20/2024- received call from [facility] to complete screening regarding referral for [facility]. [facility] to arrange appointment with patient and to complete assessment for services. APOLLO Lowe
--- NOTE | 2024-01-22 16:21 | CASEMGMT ---
Social Work MILE received notification from [facility] that the patient's SOC has been delayed due to delay in patient's follow up with PCP. Patient has not received any home health care services since discharge 01/17. SW contacted patient to inquire about issues related to PCP follow up. Patient informed SW that she went to PCP office on 01/21/2024 around 3PM and met with Angela JEAN with transportation provided by Sarita santos Jr. to complete visit. Patient informed SW that she had labs drawn at PCP office. Patient informed SW that she has a follow up appointment with Ortho on January 28. Patient informed SW that she is unsure why the PCP did not provide orders for home health care. Patient informed SW that she requires home health care. SW reviewed patient chart and confirmed that visit was completed on 01/20. MILE spoke with [facility] Diana, who confirmed information. Patient start of care will be Thursday 01/25. APOLLO Lowe
== END 2024-01-18 13:30 | disposition home health service (06) | DRG 559 ==
PROVIDERS: Admitting Provider Family Medicine Geriatric Medicine; PCP Family Medicine; Visit Provider Family Medicine Geriatric Medicine
DX: S72.002D Fracture of unspecified part of neck of left femur, subsequent encounter for closed fracture with routine healing (principal); J18.9 Pneumonia, unspecified organism; J44.0 Chronic obstructive pulmonary disease with (acute) lower respiratory infection; E11.22 Type 2 diabetes mellitus with diabetic chronic kidney disease; N18.30 Chronic kidney disease, stage 3 unspecified; E11.42 Type 2 diabetes mellitus with diabetic polyneuropathy; E11.51 Type 2 diabetes mellitus with diabetic peripheral angiopathy without gangrene; Z79.4 Long term (current) use of insulin; I12.9 Hypertensive chronic kidney disease with stage 1 through stage 4 chronic kidney disease, or unspecified chronic kidney disease; E83.42 Hypomagnesemia; I25.10 Atherosclerotic heart disease of native coronary artery without angina pectoris; J30.9 Allergic rhinitis, unspecified; K21.9 Gastro-esophageal reflux disease without esophagitis; E83.52 Hypercalcemia; E78.5 Hyperlipidemia, unspecified; W19.XXXD Unspecified fall, subsequent encounter; F41.9 Anxiety disorder, unspecified; Z79.51 Long term (current) use of inhaled steroids; Z79.82 Long term (current) use of aspirin; Z87.891 Personal history of nicotine dependence; Z79.01 Long term (current) use of anticoagulants; Z96.642 Presence of left artificial hip joint; Z79.899 Other long term (current) drug therapy
CPT/HCPCS: 36415; 71046; 73502; 74018; 80048; 81001; 82962; 85025; 87040; 87077; 87086; 87088; 87186; 87631; 87811; 92507; 92523; 92526; 92610; 97110; 97116; 97162; 97166; 97530; 97535; 97802; J7050; A4216

== ENCOUNTER → 2024-01-21 | Outpatient (CLI) | payer MEDICARE, SELFPAY ==
[2024-01-21 17:45] LABS: Absolute Lymphocyte Count 1.82 X10^3/uL (0.83-4.51); Absolute Neutrophil Count 4.2 X10^3/uL (2.0-7.7); Basophil# 0.03 X10^3/uL; Basophil% 0.4 % (0-1); Eosinophil# 0.27 X10^3/uL; Eosinophils% 3.9 % (0-5); Hematocrit 34.6 % (37-47); Hemoglobin 10.2 g/dL (12.0-15.0); Lymphocyte # 1.82 X10^3/ul (0.83-4.51); Lymphocyte % 26.3 % (19-41); Mean Corp Hgb Conc 29.5 g/dL (32-36); Mean Corpuscular Hgb 25.6 pg (27.0-32.0); Mean Corpuscular Volume 86.7 fL (81-99); Mean Platelet Vol. 10.4 fl (6.2-12.0); Monocyte# 0.56 X10^3/uL; Monocyte% 8.1 % (0-10); NRBC Flagged by Analyzer 0 % (0-5); Neutrophil # 4.23 X10^3/uL (2.7-7.7); Neutrophil % 61.2 % (47-70); Platelet Count 385 K/mm3 (150-450); RBC Distribution Width CV 15.6 % (11.6-14.6); RBC Distribution Width SD 49.5 fl (35.1-43.9); Red Blood Count 3.99 M/mm3 (4.2-5.4); White Blood Count 6.9 K/mm3 (4.4-11.0)
[2024-01-21 18:06] LABS: Vitamin D,25 Hydroxy 39.4 ng/mL
[2024-01-21 18:23] LABS: ALB/GLOB Ratio 0.6 RATIO (0.9-2.4); AST(SGOT) 19 U/L (15-37); Alanine Aminotransfer ALT/SGPT 16 U/L (13-56); Alkaline Phosphatase 137 U/L (45-117); Anion Gap 9 (5-15); BUN 21 mg/dL (7-18); BUN/Creat Ratio 22.3 RATIO (10-20); Calcium,Total 10.4 mg/dL (8.5-10.1); Chloride 102 mmol/L (98-107); Creatinine, Serum 0.94 mg/dL (0.55-1.02); EST Glomerular Filtration Rate 61 mL/min (>60); Est Glom Filt Rate - Afr Amer 74 mL/min (>60); Globulin 5.3 g/dL (2.2-4.2); Glucose 202 mg/dL (74-106); Potassium 4.3 mmol/L (3.5-5.1); Protein, Total 8.3 g/dL (6.4-8.2); Sodium Level 135 mmol/L (136-145)
[2024-01-21 18:56] LABS: Hemoglobin A1c 8.3 % (3.8-5.6)
== END | disposition home or self-care (01) ==
LOC: MFPLAB 15:44
PROVIDERS: Family Medicine; PCP Family Medicine; Visit Provider Family Medicine
DX: E55.9 Vitamin D deficiency, unspecified (principal); E11.49 Type 2 diabetes mellitus with other diabetic neurological complication; D64.9 Anemia, unspecified
CPT/HCPCS: 36415; 80053; 82306; 83036; 84443; 85025

== ENCOUNTER → 2024-02-23 | Outpatient (CLI) | payer MEDICARE, SELFPAY ==
--- NOTE | 2024-02-23 15:48 | BD_ITS ---
STUDY: DUAL ENERGY X-RAY ABSORPTIOMETRY / DXA REASON FOR EXAM: Female, 79 years old. [id number] TECHNIQUE: Bone Mineral Density (BMD) measurements of both forearms were obtained. COMPARISON: None. FINDINGS: Right Forearm: g/cm2 (0.424) / T-score (-2.9) / Z-score (0.1) Left Forearm: g/cm2 (0.390) / T-score (-3.5) / Z-score (-0.5) BD/Dexa Bone Density/Append Skel IMPRESSION: The patient is considered osteoporotic as outlined below according to World David Organization (WHO) criteria with a high fracture risk. Reference Information: The T-score is the number of standard deviations above or below the standard which is normal for young adults at their peak bone mineral density. The World Health Organization (WHO) interprets the T-scores as follows: Above -1 Normal bone density Between -1 and -2.5 Osteopenia Equal to / or below -2.5 Osteoporosis As a practical clinical guideline, osteopenia may be graded as follows: Mild -1 through -1.5 Moderate -1.6 through -2.0 Severe -2.1 through -2.4 The Z-score is the number of standard deviations above or below age-matched controls. A Z-score of less than -1.5 would be considered abnormal. References: 1. NIH Osteoporosis and Related Bone Diseases www osteo.org 2. International Society for Clinical Densitometry www iscd.org 3. National Osteoporosis Foundation www nof.org Electronically Signed: Robert Randall MD at 8:03 EDT ,
== END | disposition home or self-care (01) ==
LOC: OPBD 15:43
PROVIDERS: PCP Family Medicine; Referring Provider Family Medicine; Visit Provider Family Medicine
DX: N95.9 Unspecified menopausal and perimenopausal disorder (principal)
CPT/HCPCS: 77081

== ENCOUNTER → 2024-03-01 | Outpatient (CLI) | payer MEDICARE, SELFPAY ==
--- NOTE | 2024-03-01 14:57 | BI_ITS ---
MAMMOGRAPHY - BILATERAL SCREENING 3-D TOMOSYNTHESIS REASON FOR EXAM: Female, 79 years old. screening/history of diagnostic PERTINENT HISTORY: No significant family history. TECHNIQUE: 2-D mammograms and 3-D Tomosynthesis of the breast (s) were performed. CAD was performed. COMPARISON: 08/21/2021 FINDINGS: The breast composition is heterogeneously dense that can obscure small breast masses. Scattered benign calcifications are seen. No dense spiculated masses or suspicious microcalcifications are identified. No architectural distortion is identified. There is no skin thickening or retraction. There has been no significant change since the prior study. No change in the lumpectomy changes and scarring in the lower inner quadrant left breast. BI/SCRN MAMM (CAD)W/CEASAR BILAT IMPRESSION: No mammographic signs of malignancy. Routine yearly mammograms recommended. ASSESSMENT CATEGORY: BIRADS Category 2: Benign. A letter regarding these results will be sent to the patient by the facility within 30 days. FOLLOW UP RECOMMENDATION: Yearly follow up mammogram recommended. (A) Approximately 10% of breast cancers are not detected by mammography. A normal mammogram should not delay biopsy of a clinically suspicious abnormality. Electronically Signed: Weston Patel MD at 19:19 EDT ,
== END | disposition home or self-care (01) ==
LOC: OPBI 14:57
PROVIDERS: PCP Family Medicine; Referring Provider Family Medicine; Visit Provider Family Medicine
DX: Z12.31 Encounter for screening mammogram for malignant neoplasm of breast (principal)
CPT/HCPCS: 77063; 77067

== ENCOUNTER 2024-03-25 15:30 | Outpatient (RCR) | payer MEDICARE, SELFPAY ==
--- NOTE | 2024-03-10 13:11 | HP.PTEVAL_ITS ---
Patient's Visit Information Visit Information Visit Information: OLGA DONALDSON is a 79 year old F referred to Physical Therapy by Dr. Gabriel Byrd MD with a diagnosis of Fx unspecified part of neck of femur, S72.002D; Weakness, R53.1. Date of Evaluation: 03/10/24 Physical Therapist: Alberto Dean Visit Plan Frequency: 2x /Week Duration: 6 Weeks Plan: Continue with improving LE ROM, strength, and balance. Subjective Subjective: Pt. is a 79 y.o. female who had a fall in the end of November when she was in her house and went to turn and fell to the ground. Pt. went to the hospital and had imaging which showed displaced fracture of left femoral neck. Pt. had left hip hemiplasty surgery with anterior approach at the end of November. She is currently ambulating with a rolling walker. She was previously ambulating with a cane prior to the fall. She denies any numbness or tingling in her legs. Pt. has difficulty with walking, walking on uneven ground, ascending/descending stairs, squatting, LE dressing/bathing, and housework. Pt. is retired. She had physical therapy for three weeks at [facility] after surgery. Her goal with physical therapy is to be able to walk better. Pt. rates left hip pain at 3/10 currently, at worst 5/10, at best 0/10 and describes the pain as stiffness and achy. Pt. is taking Tylenol for pain. Her PMH includes type II diabetes, left breast cancer with lumpectomy, former smoker quit four years ago, and right leg surgery. Pt. lives with and her son lives above her in a duplex and they have one step to enter. Her hobbies include watching tv. Objective Objective: Palpation- Mild tenderness over left hip Left knee AROM flexion 95 degrees and extension 0 degrees Right knee AROM flexion 126 degrees and extension 0 degrees Left LE strength hip flexion 2/5, abduction 2/5, adduction 4-/5, extension 2/5, knee flexion 4/5, knee extension 4/5, ankle DF 4+/5, ankle PF 4+/5 Right LE strength hip flexion 4+/5, abduction 4+/5, adduction 5/5, extension 4+/5, knee flexion 5/5, knee extension 5/5, ankle DF 5/5, ankle PF 5/5 Sensation- WNL bilateral lower extremities 30 secs sit to stand- x 3 in 30 secs with arm assist Tandem stance right [unable], left [unable] SLS right [unable], left [unable] Gait- Pt. ambulates with rolling walker and antalgic gait pattern of left lower extremity. Balance/Special Test Scores Lower Extremity Functional Score: 13 Goals Goal 1:: Pt. will improve left LE strength to 4/5 for all motions in order to improve stability and balance. Goal Time Frame: 4-6 Weeks Goal 2:: Pt. will be able to walk at least 10 minutes with rolling walker and no rest break in order to improve endurance. Goal Time Frame: 4-6 Weeks Goal 3:: Pt. will improve tandem stance > 15 secs in order to improve stability and balance. Goal Time Frame: 4-6 Weeks Goal 4:: Pt. will be able to complete at least 8 sit to stands in 30 secs with arm assist in order to improve ADL's. Goal Time Frame: 4-6 Weeks Goal 5:: Pt. will be able to complete LE dressing with no pain or difficulty. Goal Time Frame: 4-6 Weeks Goal 6:: Pt. will improve LEFS score < 65% disability in order to improve mobility and ADL's. Goal Time Frame: 4-6 Weeks Rehabilitation Potential Physical Therapy Diagnosis: Decreased left LE strength, difficulty walking, balance impairment, and pain Rehabilitation Potential: Good Anticipated Interventions Patient/Client Instruction: Educate patient on: Condition, Plan of Care and Benefits of Fitness Program For the Purpose of:: To decrease pain, To increase ROM, To improve ability to perform ADL's, To improve performance and independence with ADL's, To improve gait and locomotor functions, To increase flexibility/ROM, To improve endurance, To improve balance, To assume or resume ADL's, To improve safety and To improve tolerance to ADL's Therapeutic Exercise to Include: Strength training, Balance training and Gait and locomotor training Comment: Continue to work on improving LE ROM, strength, and balance. For the Purpose of:: To decrease pain, To increase ROM, To improve ability to perform ADL's, To improve performance and independence with ADL's, To increase flexibility/ROM, To improve endurance, To improve balance, To improve safety with gait, To assume or resume ADL's, To improve safety and To improve tolerance to ADL's Functional Training to Include: ADL Training and Gait training For the Purpose of:: To improve ability to perform ADL's, To improve performance and independence with ADL's, To improve gait and locomotor functions, To improve endurance, To improve balance, To improve safety with gait, To assume or resume ADL's, To improve safety and To improve tolerance to ADL's Assistive Devices: Cane and Wheeled walker For the Purpose of:: To improve ability to perform ADL's, To improve performance and independence with ADL's, To improve gait and locomotor functions, To improve endurance, To improve balance, To improve safety with gait, To assume or resume ADL's, To improve safety and To improve tolerance to ADL's Text: Thank you for the opportunity to evaluate your patient. For Medicare and Medicare HMO plans, please review the plan of care and approve it. It will need to be FAXED BACK to us at [phone] for Medicare purposes. For Medicare only, by signing this I certify the plan of care. Please let me know if there are questions or concerns regarding this plan of care. Physician Signature: Date:
== END 2024-03-25 19:00 | disposition home or self-care (01) ==
LOC: PT 15:30
PROVIDERS: PCP Family Medicine; Referring Provider Specialist; Visit Provider Specialist
DX: S72.002D Fracture of unspecified part of neck of left femur, subsequent encounter for closed fracture with routine healing (principal); R53.1 Weakness
CPT/HCPCS: 97110; 97162

== ENCOUNTER → 2024-04-18 | Outpatient (CLI) | payer MEDICARE, SELFPAY ==
[2024-04-18 17:42] LABS: Absolute Lymphocyte Count 1.93 X10^3/uL (0.83-4.51); Absolute Neutrophil Count 5.1 X10^3/uL (2.0-7.7); Basophil# 0.05 X10^3/uL; Basophil% 0.6 % (0-1); Eosinophil# 0.29 X10^3/uL; Eosinophils% 3.7 % (0-5); Hematocrit 34.9 % (37-47); Hemoglobin 10.4 g/dL (12.0-15.0); Lymphocyte # 1.93 X10^3/ul (0.83-4.51); Lymphocyte % 24.5 % (19-41); Mean Corp Hgb Conc 29.8 g/dL (32-36); Mean Corpuscular Hgb 24.4 pg (27.0-32.0); Mean Corpuscular Volume 81.9 fL (81-99); Mean Platelet Vol. 10.7 fl (6.2-12.0); Monocyte# 0.54 X10^3/uL; Monocyte% 6.8 % (0-10); NRBC Flagged by Analyzer 0 % (0-5); Neutrophil # 5.06 X10^3/uL (2.7-7.7); Neutrophil % 64.1 % (47-70); Platelet Count 294 K/mm3 (150-450); Red Blood Count 4.26 M/mm3 (4.2-5.4); White Blood Count 7.9 K/mm3 (4.4-11.0)
[2024-04-18 18:21] LABS: ALB/GLOB Ratio 0.6 RATIO (0.9-2.4); AST(SGOT) 22 U/L (15-37); Alanine Aminotransfer ALT/SGPT 14 U/L (13-56); Alkaline Phosphatase 130 U/L (45-117); Anion Gap 6 (5-15); BUN 12 mg/dL (7-18); BUN/Creat Ratio 12.5 RATIO (10-20); Chloride 101 mmol/L (98-107); Creatinine, Serum 0.96 mg/dL (0.55-1.02); EST Glomerular Filtration Rate 59 mL/min (>60); Est Glom Filt Rate - Afr Amer 72 mL/min (>60); Globulin 5.4 g/dL (2.2-4.2); Glucose 142 mg/dL (74-106); Potassium 3.5 mmol/L (3.5-5.1); Protein, Total 8.4 g/dL (6.4-8.2); Sodium Level 133 mmol/L (136-145)
[2024-04-18 18:23] LABS: Hemoglobin A1c 8.2 % (3.8-5.6)
== END | disposition home or self-care (01) ==
LOC: MTLAB 15:37
PROVIDERS: PCP Family Medicine; Referring Provider Family Medicine; Visit Provider Family Medicine
DX: E11.49 Type 2 diabetes mellitus with other diabetic neurological complication (principal); J44.9 Chronic obstructive pulmonary disease, unspecified
CPT/HCPCS: 36415; 80053; 83036; 85025

== ENCOUNTER 2024-05-18 14:00 | Outpatient (RCR) | payer MEDICARE, SELFPAY ==
--- NOTE | 2024-04-26 14:48 | HP.PTEVAL_ITS ---
Patient's Visit Information Visit Information Visit Information: OLGA DONALDSON is a 79 year old F referred to Physical Therapy by Jaskaran Orta PA-C with a diagnosis of ANTERIOR L HEMIARTHROPLASTY FOLLOWING FRACTURE 12/28/23. Date of Evaluation: 04/26/24 Physical Therapist: Veronica Pimentel, PT, Cert MDT Visit Plan Frequency: 2x /Week Duration: 4-6 Weeks Plan: 1. Improve hip and knee range of motion 2. Improve strength of core, quads, hamstrings and hips in both open and closed chain. 3. Progress gait with FWW as tolerated (do not progress to cane). Re-integrate functional mobility with step (not stairs) and transfers. Subjective Subjective: Present symptoms: L HIP AND GROIN PAIN Pain Scale: WORST 6/10, LEAST 3/10 Currently: 5/10 Is it getting better, worse or staying the same: GETTING BETTER Commenced as a result of: FALL - AT HOME - TRIPPED OVER THE RECLINER Worse: BENDING TO PICK THINGS UP, EARLY MORNINGS, RISING FROM SITTING Better: [place], SITTING Treatment this episode: RE[facility] FOR ABOUT 3 WKS and THEN OP PT HERE AT BUT PATIENT REPORTS SHE DIDN'T FOLLOW THROUGHT BECAUSE IT WAS TOO HOT. SHE REPORTS WHEN SHE FOLLOWED UP WITH THE DOCTOR AFTER SURGERY HE ENCOURAGED HER TO COME BACK TO PT. SHE REPORTS SHE HAS BEEN DOING HER HEP. Gait: HAS BEEN GETTING AROUND ON HER FWW. ONE STEP INTO/OUT OF HOUSE - USES WALKER AND SON IS THERE WITH HER. REPORTS SHE ISN'T HAVING ANY PROBLEMS GETTING IN/OUT OF HOUSE. Objective Objective: GAIT: THIS PATIENT AMBULATES INDEP'LY INTO PT TODAY WITH A FWW, DECREASED CADANCE AND A MILD LIMP ON THE LLE. NO LOB. SHE DEMO'S GAIT SHORT DISTANCE BUT WAS BROUGHT BACK TO PT THE MAJORITY OF THE WAY IN A W/C. TU MIN 07.25 SEC WITH FWW AND SUPERVISION. L knee flexion AROM: 101 degress L knee ext AROM: FULL Left LE strength hip flexion 3-/5, abduction 2+/5, adduction 4-/5, extension 2/5, knee flexion 4/5, knee extension 4/5, ankle DF 4+/5, ankle PF 4+/5 Right LE strength hip flexion 4/5, abduction 4/5, adduction 5/5, extension 4/5, knee flexion 5/5, knee extension 5/5, ankle DF 5/5, ankle PF 5/5 30 secs sit to stand- x 3 in 30 secs with B UE assist SLS right [unable], left [unable] Sensory deficit: JOSE DANIEL LE LIGHT TOUCH SENSATION GROSSLY INTACT AND SYMMETRICAL Palpation: L HIP INCISION IS FULLY HEALED. MILD TENDERNESS L ANTEROLATERAL HIP REGION. Balance/Special Test Scores Lower Extremity Functional Score: 15 Goals Goal 1:: Pt. will improve left LE strength to 4/5 for all motions in order to improve stability and balance Goal Time Frame: 4-6 Weeks Goal 2:: Pt. will be able to walk at least 10 minutes with rolling walker and no rest break in order to improve endurance. Goal Time Frame: 4-6 Weeks Goal 3:: Pt. will improve single leg stance > 5 secs in order to improve stability and balance. Goal Time Frame: 4-6 Weeks Goal 4:: Pt. will be able to complete at least 6 sit to stands in 30 secs with arm assist in order to improve ADL's. Goal Time Frame: 4-6 Weeks Goal 5:: Pt. will score at least 5 points better on the LEFS questionnaire to show improved mobility. Goal Time Frame: 4-6 Weeks Rehabilitation Potential Physical Therapy Diagnosis: Decreased left LE strength, difficulty walking, balance impairment, and pain Rehabilitation Potential: Good Anticipated Interventions Patient/Client Instruction: Educate patient on: Condition, Plan of Care and Risk Factors For the Purpose of:: To improve self management Therapeutic Exercise to Include: Strength training, Body mechanics, Postural training, Flexibilty training, Gait and locomotor training, Neuromotor development, Passive ROM and Active ROM For the Purpose of:: To decrease pain, To increase ROM, To improve muscle performance and motor function, To improve ability to perform ADL's, To increase tolerance to activity/condition/position, To improve ability of physical actions for home/community/work/leisure, To improve gait and locomotor functions, To increase flexibility/ROM, To improve balance, To improve safety with gait, To assume or resume ADL's and To improve self management Cryotherapy (ice pack, ice massage): Yes For the Purpose of:: To decrease pain and To decrease swelling/inflammation Text: Thank you for the opportunity to evaluate your patient. For Medicare and Medicare HMO plans, please review the plan of care and approve it. It will need to be FAXED BACK to us at [phone] for Medicare purposes. For Medicare only, by signing this I certify the plan of care. Please let me know if there are questions or concerns regarding this plan of care. Physician Signature: Date:
--- NOTE | 2024-09-06 10:43 | HP.PTDCNRP_ITS ---
Patient Information Patient Information: OLGA DONALDSON was seen in my office for initial evaluation on 04/26/24. The following Plan of Care was established for this patient: POC Established Initial Frequency: 2x /Week Initial Duration: 4-6 Weeks Anticipated Interventions Patient/Client Instruction: Educate patient on: Condition, Plan of Care and Risk Factors For the Purpose of:: To improve self management Therapeutic Exercise to Include: Strength training, Body mechanics, Postural training, Flexibilty training, Gait and locomotor training, Neuromotor development, Passive ROM and Active ROM For the Purpose of:: To decrease pain, To increase ROM, To improve muscle performance and motor function, To improve ability to perform ADL's, To increase tolerance to activity/condition/position, To improve ability of physical actions for home/community/work/leisure, To improve gait and locomotor functions, To increase flexibility/ROM, To improve balance, To improve safety with gait, To assume or resume ADL's and To improve self management Cryotherapy (ice pack, ice massage): Yes For the Purpose of:: To decrease pain and To decrease swelling/inflammation Last Seen Last Seen: This patient was last seen in our office 05/18/24. Pertinent comments regarding their Physical therapy will appear below: It has been my pleasure to see this patient for a total of 4 visits. This patient has not returned to Physical Therapy for more visits and is appropriate to return to MD for further follow-up as needed. At this point I will be discontinuing this patient from physical therapy. I w ould be happy to see this patient again in the future if found appropriate by the physician. Thank you! Veronica Pimentel, PT, Cert MDT Balance/Gait/Functional tests Balance/Special Test Scores Lower Extremity Functional Score: 15
== END 2024-05-18 19:00 | disposition home or self-care (01) ==
LOC: PT 14:00
PROVIDERS: PCP Family Medicine; Referring Provider Physician Assistant Surgical; Visit Provider Physician Assistant Surgical
DX: Z47.1 Aftercare following joint replacement surgery (principal); S72.002D Fracture of unspecified part of neck of left femur, subsequent encounter for closed fracture with routine healing; Z96.642 Presence of left artificial hip joint
CPT/HCPCS: 97110; 97162

== ENCOUNTER 2024-05-30 07:00 | Emergency (ER) | payer MEDICARE, SELFPAY ==
[2024-05-30] VITALS (7 sets, daily range): BP systolic 134–168; BP diastolic 52–82; PULSE 94–110; RESP 21–24; TEMP 36.2–36.6; O2SAT 95–97; BMI 28.0
--- NOTE | 2024-05-30 07:14 | EKG12_ITS ---
Test Reason : Blood Pressure : / mmHG Vent. Rate : 092 BPM Atrial Rate : 092 BPM P-R Int : 158 ms QRS Dur : 082 ms QT Int : 370 ms P-R-T Axes : 060 026 049 degrees QTc Int : 457 ms Normal sinus rhythm Nonspecific ST and T wave abnormality Abnormal ECG Confirmed by KELSEA LEARY, ANN ([id number]), photograph editor MIKE MATTHEW ([id number]) on 05/31/2024 8:54:49 AM Referred By: THOMAS Confirmed By:ANN ENAMORADO MD
--- NOTE | 2024-05-30 07:31 | ED.VIS.DYS ---
HPI History of Present Illness Chief Complaint: Shortness of Breath Detail of Chief Complaint: Acute onset shortness of breath several hours prior to arrival Informant: patient Onset/Context/Timing Onset: Today and Hours Context: sudden and rest Timing: Continuous Quality: Positive for Dyspnea on exertion, Orthopnea and Wheezing; Negative for PND Current Severity: Mild Maximum Severity: Moderate Worsened by: Exertion and Lying flat Relieved by: Nothing Associated Symptoms cough, rhinorrhea and post nasal drip; Negative for ear pain, fever, sore throat, subjective, chills or sweats Chest Pain: Positive for None Narrative Narrative: Patient is and 79-year-old woman with history of coronary artery disease, diabetes, GERD, COPD with wheezing, hypertension who presents because of abrupt onset of shortness of breath. Patient states she has not had a stress test in many years. She denies chest discomfort of any type. She denies history of congestive heart failure. She denies swelling of her legs or feet. Patient does endorse wheezing and coughing. She endorses the fact that she cough is productive. She swallows it and does not know the color. She also has rhinorrhea and postnasal drainage. That has been present for the past several weeks. She is using a nasal spray. This was attributed to allergies. She denies fever, chills or night sweats. She denies earache. She denies sore throat. Patient states she has not been on prednisone in the last 3 to 6 months. She denies history of PE or DVT. She denies leg pain, swelling or discoloration. She denies recent surgery, immobilization or trauma. Patient denies symptoms of claudication. Patient states she sleeps with a hospital bed. PE Risk Factors: Negative for Cancer, OCP + Smoking + > 35, Prior DVT or PE, Recent immobilization, Recent surgery or Recent travel Prior similar symptoms: Yes (COPD) Recent Illness/Hospitalization: No [facility] Medical History Fracture of hip, left, closed Coronary artery disease Paronychia of left index finger Vaginal cyst Anxiety Depression Irregular heart beat Multiple thyroid nodules Foraminal stenosis of lumbar region Lumbar spinal stenosis Diabetic retinopathy Colon polyp Thyroid goiter Hyperlipidemia Hypokalemia Microcytic anemia Neurogenic bladder Hypophosphatemia Hypercalcemia Former smoker UTI (urinary tract infection) Iron deficiency anemia Aortic stenosis Hyponatremia Urine retention Chronic renal failure, stage 3 (moderate) Cellulitis and abscess of finger, unspecified Retinopathy Peripheral artery disease Leg weakness, bilateral GERD (gastroesophageal reflux disease) Chronic idiopathic constipation COPD (chronic obstructive pulmonary disease) Polypharmacy Hypertension Carpal tunnel syndrome of right wrist Strain of right rotator cuff capsule Rhinitis Urinary retention with incomplete bladder emptying Vitamin D deficiency Asthma Pruritus Goiter, nontoxic, multinodular Anemia Diabetes Hx of venous thrombosis and embolism History of malignant neoplasm of breast Type 2 diabetes mellitus Home Medications ?Medication ?Instructions ?Recorded ?Last Taken ?Type aspirin 81 mg chewable tablet 81 mg PO DAILY [facility] 01/21/16 08/12/23 History albuterol sulfate 90 mcg/actuation 2 puff inhalation Q4H PRN Sob &/Or 08/16/18 07/10/20 06:30 History aerosol inhaler Wheezing diltiazem HCl 180 mg 180 mg PO DAILY BLOOD PRESSURE 08/16/18 08/12/23 History tablet,extended release 24 hr magnesium oxide 400 mg (241.3 mg 400 mg PO BID SUPPLEMENT 08/16/18 08/12/23 History magnesium) tablet metoprolol tartrate 25 mg tablet 25 mg PO BID BLOOD PRESSURE 08/16/18 08/12/23 History pantoprazole 40 mg tablet,delayed 40 mg PO QHS ACID REFLUX 12/02/19 08/12/23 History release empagliflozin 10 mg tablet 10 mg PO DAILY DIABETES 10/18/20 08/12/23 History (Jardiance) sitagliptin phosphate 50 mg tablet 50 mg PO DAILY DIABETES 10/18/20 08/12/23 History (Januvia) budesonide-formoterol HFA 160 2 puff inhalation BID lungs 12/06/21 08/12/23 History mcg-4.5 mcg/actuation aerosol inhaler (Symbicort) multivitamin 1 tab PO DAILY VITAMIN 12/06/21 08/12/23 History pravastatin 20 mg tablet 20 mg PO DAILY CHOLESTEROL 12/06/21 08/12/23 History ascorbic acid (vitamin C) 250 mg 250 mg PO DAILY SUPPLEMENT 08/13/23 08/12/23 History tablet (Vitamin C) azelastine 137 mcg (0.1 %) nasal 137 mcg intranasal BID RUNNY NOSE 08/13/23 08/12/23 History spray dulaglutide 0.75 mg/0.5 mL 0.75 mg subcut MO DIABETES 08/13/23 08/10/23 History subcutaneous pen injector ([facility]) gabapentin 100 mg capsule 100 mg PO QHS NERVE PAIN 08/13/23 08/12/23 History roflumilast 500 mcg tablet 500 mcg PO DAILY COPD 08/13/23 08/12/23 History insulin glargine-yfgn 100 unit/mL 15 unit (0.15 mL) subcut BID 12/30/23 Unknown Rx (3 mL) subcutaneous pen diabetes-long acting insulin #0 mL insulin lispro 100 unit/mL 8 unit subcut TIDAC short acting 12/30/23 Unknown History subcutaneous pen (Humalog KwikPen insulin (U-100) Insulin) acetaminophen 500 mg tablet 1,000 mg (2 x 500 mg) PO Q6H PRN 01/15/24 Unknown Rx PRN Pain Score 1-3 #0 tabs apixaban 5 mg tablet (Eliquis) 2.5 mg (1/2 x 5 mg) PO BID 11 days 01/15/24 Unknown Rx #11 tabs netarsudil 0.02 %-latanoprost 0 drp EACH EYE DAILY #0 mL 01/15/24 Unknown Rx 0.005 % eye drops (Rocklatan) tramadol 50 mg tablet 50 mg PO Q6H PRN PRN Pain Score 01/15/24 Unknown Rx 4-5 Or Pre Pt/Ot 7 days #28 tabs doxycycline monohydrate 100 mg 100 mg PO BID #10 CAPSULES 05/30/24 Unknown Rx capsule prednisone 20 mg tablet 60 mg (3 x 20 mg) PO DAILY #15 05/30/24 Unknown Rx TABLETS Allergy/AdvReac Type Severity Reaction Status Date / Time adhesive tape (tape) Allergy NEEDS Verified 12/27/23 22:08 FOLLOW-UP amoxicillin Allergy YEAST Verified 12/27/23 22:08 INFECTION cephalexin monohydrate (From Allergy Rash Verified 12/27/23 22:08 Keflex) clopidogrel bisulfate (From Allergy Other Verified 12/27/23 22:08 Plavix) Family History Daughter Breast cancer Father Hypertension Sister Cancer Kidney disease Mother Pancreatic cancer Surgical History History of left hip hemiarthroplasty S/P fine needle aspiration (~10/2020) H/O dilation and curettage (~07/10/20) History of Achilles tendon repair Retinopathy History of lumpectomy of left breast Social History household members: spouse Smoking Status: Former smoker alcohol intake: never substance use type: does not use caffeine: Yes what type of physical activity do you participate in: none seatbelt use: always do you feel safe at home: Yes additional social history: [employer]- retired ROS ROS ED Constitutional Constitutional ED: Denies chills, fever(s), sweats or weight loss Eyes Eyes: Denies blurry vision, change in vision or diplopia ENT ENT ED: Denies ear pain, rhinorrhea or sore throat Cardiovascular Cardiovascular: Reports orthopnea; Denies chest pain, palpitations, paroxysmal nocturnal dyspnea or racing heartbeat Respiratory/Chest Respiratory/Chest: Reports cough, dyspnea, dyspnea on exertion and orthopnea; Denies paroxysmal nocturnal dyspnea Gastrointestinal Gastrointestinal: Denies abdominal pain, constipation, diarrhea, melena, nausea or vomiting Genitourinary Genitourinary ED: Denies dysuria, hematuria or urinary frequency Musculoskeletal Musculoskeletal: Denies arthralgias, back pain, myalgias or neck pain Integumentary Denies abscess, Abrasions or rash Neurologic Neurologic: Denies headache(s), paresthesias or weakness Psychiatric Psychiatric: Denies anxiety or depression Hematologic/Lymphatic Hematologic/Lymphatic: Denies easy bleeding or easy bruising EXAM Physical Exam Const Vital Signs: 05/30/24 07:01 05/30/24 07:10 05/30/24 07:41 Temperature 97.7 F L Temperature Source Temporal Pulse Rate 94 96 Respiratory Rate 21 H 24 H Respiratory Effort Normal Respiratory Depth Normal Respiratory Pattern Normal Tachypnea Blood Pressure 168/68 H Blood Pressure Mean 101 Pulse Ox 95 Oxygen Delivery Method Room Air Room Air 05/30/24 08:08 05/30/24 08:11 05/30/24 09:00 Temperature 97.8 F 97.5 F L Temperature Source Oral Oral Pulse Rate 110 H 103 H Respiratory Rate 24 H 24 H Respiratory Effort Respiratory Depth Respiratory Pattern Blood Pressure 154/82 H 134/52 H Blood Pressure Mean 106 79 Pulse Ox 96 95 96 Oxygen Delivery Method Room Air Room Air Room Air 05/30/24 09:24 Temperature 97.2 F L Temperature Source Pulse Rate 104 H Respiratory Rate 22 H Respiratory Effort Respiratory Depth Respiratory Pattern Blood Pressure 134/52 H Blood Pressure Mean 79 Pulse Ox 96 Oxygen Delivery Method Positive well nourished and well developed Constitutional Narrative: Patient is slightly tachypneic. There is no use of accessory muscles. General Appearance ED: well developed; Negative for NAD HEENT Reports moist mucous membranes HEENT Narrative: Head is atraumatic normocephalic. Nares patent with slight discharge. Mucosa is slightly grayish in color. Posterior pharynx is normal. Uvula is midline. There is no deviation tongue with protrusion. Eyes PERRL and EOMs intact bilaterally General Eye ED: Negative for pale conjunctiva or scleral icterus Neck no lymphadenopathy, supple, no meningeal signs and no JVD Resp normal respiratory effort and clear to auscultation bilaterally Cardio regular rate, regular rhythm, S1 normal heart sound, S2 normal heart sound and no murmurs GI non-tender, non-distended and no masses Auscultation: normoactive bowel sounds Palpation: soft Back/Spine no CVA tenderness Extremity normal to inspection Extremity Narrative: There is no asymmetry, swelling, discoloration, leg vein distention, palpable cords or tenderness along the distribution of the deep venous system. General Extremety ED: Negative for edema or tenderness General Extremity: Negative for edema Neuro oriented x3, CN's II-XII intact bilaterally and no sensory deficits noted [place] Coma Scale: document GCS findings Spontaneous Obeys Commands Oriented 15 Sensorium / Orientation: alert Skin no wounds and skin turgor normal MDM MDM MDM Narrative Medical decision making narrative: Patient with history of abrupt onset of shortness of breath. Need to evaluate for hisCOPD, pneumothorax, pulm embolus, ischemia causing CHF. Clinically there is concern for right lower lobe pneumonia since she has egophony in the right lower lobe posteriorly. Because she is wheezing throughout and tachypneic she was treated with albuterol and Solu-Medrol. Workup included EKG, chest x-ray and appropriate blood work. D-dimer was not obtained. If troponin, BNP and x-ray did not reveal anything of significance and she is still having difficulty will obtain CTA to assess for pulmonary embolus. History & Record Review Additional record(s) reviewed:: Prior inpatient record (Admitted to TCU for rehab status post left hip hemiarthroplasty via anterior approach.) and Prior labs (Most recent blood work reveals anemia 01/21/2024. [place] panel was unremarkable other than elevated glucose.) Lab Data Attestation: I reviewed the patient's lab results. Lab results narrative: Basic metabolic panel is remarkable for a glucose of 167 with normal CO2 anion gap. Troponin is normal at 12. CBC reveals anemia. This is chronic anemia unchanged from prior. White count and differential are unremarkable. BNP is slightly elevated at 108.0. Labs: Laboratory Results - last 24 hr 05/30/24 07:40 WBC 8.3 RBC 4.38 Hgb 10.7 L Hct 36.0 L MCV 82.2 MCH 24.4 L MCHC 29.7 L RDW Std Deviation 49.3 H RDW Coeff of Vijay 16.6 H Plt Count TNP MPV 10.2 Immature Gran % (Auto) 0.200 Neut % (Auto) 50.1 Lymph % (Auto) 34.5 [place] % (Auto) 7.5 Eos % (Auto) 7.0 H Baso % (Auto) 0.7 Absolute Neuts (auto) 4.2 Absolute Lymphs (auto) 2.86 Nucleated RBC % 0 Platelet Estimate ADEQUATE Sodium 138 Potassium 4.0 Chloride 104 Carbon Dioxide 28.0 Anion Gap 7 BUN 12 Creatinine 0.93 Estim Creat Clear Calc 45.88 Est GFR (MDRD) Af Amer 74 Est GFR (MDRD) Non-Af 61 BUN/Creatinine Ratio 12.8 Glucose 167 H Calcium 11.4 H Troponin I High Sens 12 B-Natriuretic Peptide 108.0 H Radiography Chest X-Ray - ED: 2 View, Read by ED Physician, Unchanged, Heart, Lungs, Mediastinum, Bony Structures, No Acute Disease, Chronic Changes and - (There is calcification of the aorta. The aorta is not dilated.) Diagnostic Testing: Clinical Impression(s) from Imaging Studies Chest X-Ray 05/30/24 09:20 IMPRESSION: Normal x-ray examination of the chest. Electronically Signed: Weston Patel MD at 9:15 EDT , EKG Initial EKG: Attestation: I personally reviewed and interpreted this EKG as follows: Interpretation: Sinus Rhythm (Rate is 92. VT interval is 158 ms. QRS duration 82 ms. QT duration there is 70 ms. [place] is normal. In my opinion the EKG is remarkable for slight ST-T wave abnormality in the lateral leads.) Treatment and Re-Evaluation :: Patient was reexamined at 0856. There is slight end expiratory wheezing noted. Patient is resting comfortably. She was informed the results. She believes she needs an enema. Will order an enema. Nurse informed her how to perform an enema. Patient states she would like to do this at home. Therefore will discharge to home with prescription for doxycycline and prednisone. Discharge Plan Triage Chief Complaint: Shortness of Breath ED Provider: Kwaku Marcial Dx/Rx/DC Orders Clinical Impression: Acute exacerbation of chronic obstructive pulmonary disease, Diabetes, Acute bronchospasm, Acute exacerbation of chronic bronchitis, Acute constipation, History of CAD (coronary artery disease) Instructions: ED COPD Flare Prescriptions: New prednisone 20 mg tablet 60 mg PO DAILY Qty: 15 0RF doxycycline monohydrate 100 mg capsule 100 mg PO BID Qty: 10 0RF No Action Januvia 50 mg tablet 50 mg PO DAILY Jardiance 10 mg tablet 10 mg PO DAILY multivitamin Tablet 1 tab PO DAILY pravastatin 20 mg tablet 20 mg PO DAILY budesonide-formoterol [Symbicort] 160-4.5 mcg/actuation HFA aerosol inhaler 2 puff inhalation BID aspirin 81 MG tablet,chewable 81 mg PO DAILY metoprolol tartrate 25 MG tablet 25 mg PO BID magnesium oxide 400 MG tablet 400 mg PO BID diltiazem HCl 180 MG tablet extended release 24 hr 180 mg PO DAILY albuterol sulfate 1 INHALER inhaler 2 puff INHALATION Q4H PRN (Reason: Sob &/Or Wheezing) pantoprazole 40 MG tablet 40 mg PO QHS gabapentin 100 mg capsule 100 mg PO QHS roflumilast 500 mcg tablet 500 mcg PO DAILY Trulicity 0.75 mg/0.5 mL pen injector 0.75 mg subcut MO ascorbic acid (vitamin C) [Vitamin C] 250 mg tablet 250 mg PO DAILY azelastine 137 mcg (0.1 %) aerosol,spray 137 mcg intranasal BID insulin glargine-yfgn 100 unit/mL (3 mL) Insulin Pen 15 unit subcut BID Qty: 0 0RF Rx Instructions: Hold if glucose less than 130 mg/dl insulin lispro [Humalog KwikPen Insulin] 100 unit/mL Insulin Pen 8 unit subcut TIDAC Rx Instructions: Hold if glucose less than 130 mg/dl acetaminophen 500 mg Tablet 1,000 mg PO Q6H PRN PRN (Reason: Pain Score 1-3) Qty: 0 0RF tramadol 50 mg Tablet 50 mg PO Q6H PRN PRN (Reason: Pain Score 4-5 Or Pre Pt/Ot) 7 Days Qty: 28 0RF Eliquis 5 mg Tablet 2.5 mg PO BID 11 Days Qty: 11 0RF Rocklatan 0.02-0.005 % Drops 0 drp EACH EYE DAILY Qty: 0 0RF Primary Care Provider: Ramone Smiley Referrals: Ramone Smiley MD [Primary Care Provider] - 3-5 Days if not improving Print Language: Italian Disposition Disposition: Home, Self Care Discharge Date/Time: 05/30/24 09:25
[2024-05-30] MEDS: Albuterol 2.5 MG/3 ML VIAL.NEB. INHALATION ×3 (07:41)
[2024-05-30 07:48] LABS: Absolute Lymphocyte Count 2.86 X10^3/uL (0.83-4.51); Absolute Neutrophil Count 4.2 X10^3/uL (2.0-7.7); Basophil# 0.06 X10^3/uL; Basophil% 0.7 % (0-1); Eosinophil# 0.58 X10^3/uL; Hemoglobin 10.7 g/dL (12.0-15.0); Lymphocyte # 2.86 X10^3/ul (0.83-4.51); Lymphocyte % 34.5 % (19-41); Mean Corp Hgb Conc 29.7 g/dL (32-36); Mean Corpuscular Hgb 24.4 pg (27.0-32.0); Mean Corpuscular Volume 82.2 fL (81-99); Mean Platelet Vol. 10.2 fl (6.2-12.0); Monocyte# 0.62 X10^3/uL; Monocyte% 7.5 % (0-10); NRBC Flagged by Analyzer 0 % (0-5); Neutrophil # 4.15 X10^3/uL (2.7-7.7); Neutrophil % 50.1 % (47-70); POSITIVE COUNT YES; RBC Distribution Width CV 16.6 % (11.6-14.6); RBC Distribution Width SD 49.3 fl (35.1-43.9); Red Blood Count 4.38 M/mm3 (4.2-5.4); White Blood Count 8.3 K/mm3 (4.4-11.0)
[2024-05-30] MEDS: MethylPREDNISolone 125 MG/2 ML Vial IV (07:48)
[2024-05-30 08:06] LABS: Anion Gap 7 (5-15); BUN 12 mg/dL (7-18); BUN/Creat Ratio 12.8 RATIO (10-20); Calcium,Total 11.4 mg/dL (8.5-10.1); Chloride 104 mmol/L (98-107); Creatinine, Serum 0.93 mg/dL (0.55-1.02); EST Glomerular Filtration Rate 61 mL/min (>60); Est Glom Filt Rate - Afr Amer 74 mL/min (>60); Estimated Creatinine Clearance 45.88 ml/min; Glucose 167 mg/dL (74-106); Sodium Level 138 mmol/L (136-145); Troponin-I HS 12 pg/mL (3.0-54.0)
[2024-05-30 08:51] LABS: Differential Indicated SCAN CRITERIA MET; Platelet Estimate ADEQUATE (ADEQ)
[2024-05-30] MEDS: Fleet Enema 133 ML RC (09:18)
--- NOTE | 2024-05-30 09:20 | RAD_ITS ---
STUDY: X-RAY CHEST REASON FOR EXAM: Female, 79 years old. Cough, wheezing, egophony RLL TECHNIQUE: PA and lateral views of the chest. COMPARISON: 12/30/2023 FINDINGS: The lungs are clear and expanded. There is no demonstrated pleural abnormality. Normal size heart. Normal mediastinum and eliana. Normal visualized pulmonary arteries. Normal visualized aortic arch and descending thoracic aorta. Normal visualized thoracic spine. Normal visualized ribs, clavicles, and shoulders. There is no demonstrated abnormality of the visualized soft tissue structures of the upper abdomen. RAD/Chest PA and Lateral IMPRESSION: Normal x-ray examination of the chest. Electronically Signed: Weston Patel MD at 9:15 EDT ,
== END 2024-05-30 09:25 | disposition home or self-care (01) ==
LOC: ED 08:03
PROVIDERS: Emergency Provider Emergency Medicine; PCP Family Medicine; Visit Provider Emergency Medicine
DX: J44.1 Chronic obstructive pulmonary disease with (acute) exacerbation (principal); E11.51 Type 2 diabetes mellitus with diabetic peripheral angiopathy without gangrene; E11.22 Type 2 diabetes mellitus with diabetic chronic kidney disease; N18.30 Chronic kidney disease, stage 3 unspecified; I12.9 Hypertensive chronic kidney disease with stage 1 through stage 4 chronic kidney disease, or unspecified chronic kidney disease; Z87.891 Personal history of nicotine dependence; K59.00 Constipation, unspecified; J98.01 Acute bronchospasm; I25.10 Atherosclerotic heart disease of native coronary artery without angina pectoris; E78.5 Hyperlipidemia, unspecified; K21.9 Gastro-esophageal reflux disease without esophagitis; Z79.52 Long term (current) use of systemic steroids
CPT/HCPCS: 71046; 80048; 83880; 84484; 85025; 93005; 94640; 96374; 99284; A4216

== ENCOUNTER 2024-06-19 19:13 | Emergency (ER) | payer MEDICARE, SELFPAY ==
[2024-06-19] VITALS (8 sets, daily range): BP systolic 121–146; BP diastolic 59–96; PULSE 78–94; RESP 18–26; TEMP 36.2–36.8; O2SAT 94–97
--- NOTE | 2024-06-19 21:23 | RAD_ITS ---
INDICATION: Shortness of breath EXAMINATION/TECHNIQUE: X-RAY - XR Chest 1 View AP portable. 10:03 PM COMPARISON: Prior study dated: 05/30/2024 FINDINGS: LINES/DEVICES: None. LUNGS: No consolidation. No pneumothorax. MEDIASTINUM: Aorta is atherosclerotic. CARDIAC SILHOUETTE: Not enlarged. BONES AND SOFT TISSUES: No acute abnormalities. RAD/Chest 1 View (Portable) IMPRESSION: No evidence of active intrathoracic disease. Electronically Signed: Selam Hebert MD at 22:41 EDT ,
--- NOTE | 2024-06-19 21:23 | EDS_ITS ---
HPI History of Present Illness Chief Complaint: Shortness of Breath Narrative Narrative: 79-year-old female past medical history of diabetes, COPD, asthma, presents with increasing shortness of breath that she has had since yesterday. She states she saw her primary care provider the other week, and he updated her inhaler because it was out of date. She has not been on steroids in years for her COPD. 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 She states that she has had increasing shortness of breath, but denies any fever. She has an occasional cough with yellowish tinge to it. No chest pain. No leg swelling, no nausea or vomiting, no other symptoms. It might be a little worse when she tries to walk. She presents because of the increasing shortness of breath. [facility] Medical History Fracture of hip, left, closed Coronary artery disease Paronychia of left index finger Vaginal cyst Anxiety Depression Irregular heart beat Multiple thyroid nodules Foraminal stenosis of lumbar region Lumbar spinal stenosis Diabetic retinopathy Colon polyp Thyroid goiter Hyperlipidemia Hypokalemia Microcytic anemia Neurogenic bladder Hypophosphatemia Hypercalcemia Former smoker UTI (urinary tract infection) Iron deficiency anemia Aortic stenosis Hyponatremia Urine retention Chronic renal failure, stage 3 (moderate) Cellulitis and abscess of finger, unspecified Retinopathy Peripheral artery disease Leg weakness, bilateral GERD (gastroesophageal reflux disease) Chronic idiopathic constipation COPD (chronic obstructive pulmonary disease) Polypharmacy Hypertension Carpal tunnel syndrome of right wrist Strain of right rotator cuff capsule Rhinitis Urinary retention with incomplete bladder emptying Vitamin D deficiency Asthma Pruritus Goiter, nontoxic, multinodular Anemia Diabetes Hx of venous thrombosis and embolism History of malignant neoplasm of breast Type 2 diabetes mellitus Home Medications ?Medication ?Instructions ?Recorded ?Last Taken ?Type aspirin 81 mg chewable tablet 81 mg PO DAILY [facility] 01/21/16 08/12/23 History albuterol sulfate 90 mcg/actuation 2 puff inhalation Q4H PRN Sob &/Or 08/16/18 07/10/20 06:30 History aerosol inhaler Wheezing diltiazem HCl 180 mg 180 mg PO DAILY BLOOD PRESSURE 08/16/18 08/12/23 History tablet,extended release 24 hr magnesium oxide 400 mg (241.3 mg 400 mg PO BID SUPPLEMENT 08/16/18 08/12/23 History magnesium) tablet metoprolol tartrate 25 mg tablet 25 mg PO BID BLOOD PRESSURE 08/16/18 08/12/23 History pantoprazole 40 mg tablet,delayed 40 mg PO QHS ACID REFLUX 12/02/19 08/12/23 History release empagliflozin 10 mg tablet 10 mg PO DAILY DIABETES 10/18/20 08/12/23 History (Jardiance) sitagliptin phosphate 50 mg tablet 50 mg PO DAILY DIABETES 10/18/20 08/12/23 History (Januvia) budesonide-formoterol HFA 160 2 puff inhalation BID lungs 12/06/21 08/12/23 History mcg-4.5 mcg/actuation aerosol inhaler (Symbicort) multivitamin 1 tab PO DAILY VITAMIN 12/06/21 08/12/23 History pravastatin 20 mg tablet 20 mg PO DAILY CHOLESTEROL 12/06/21 08/12/23 History ascorbic acid (vitamin C) 250 mg 250 mg PO DAILY SUPPLEMENT 08/13/23 08/12/23 History tablet (Vitamin C) azelastine 137 mcg (0.1 %) nasal 137 mcg intranasal BID RUNNY NOSE 08/13/23 08/12/23 History spray dulaglutide 0.75 mg/0.5 mL 0.75 mg subcut MO DIABETES 08/13/23 08/10/23 History subcutaneous pen injector (Trulicity) gabapentin 100 mg capsule 100 mg PO QHS NERVE PAIN 08/13/23 08/12/23 History roflumilast 500 mcg tablet 500 mcg PO DAILY COPD 08/13/23 08/12/23 History insulin glargine-yfgn 100 unit/mL 15 unit (0.15 mL) subcut BID 12/30/23 Unknown Rx (3 mL) subcutaneous pen diabetes-long acting insulin #0 mL insulin lispro 100 unit/mL 8 unit subcut TIDAC short acting 12/30/23 Unknown History subcutaneous pen (Humalog KwikPen insulin (U-100) Insulin) acetaminophen 500 mg tablet 1,000 mg (2 x 500 mg) PO Q6H PRN 01/15/24 Unknown Rx PRN Pain Score 1-3 #0 tabs apixaban 5 mg tablet (Eliquis) 2.5 mg (1/2 x 5 mg) PO BID 11 days 01/15/24 Unknown Rx #11 tabs netarsudil 0.02 %-latanoprost 0 drp EACH EYE DAILY #0 mL 01/15/24 Unknown Rx 0.005 % eye drops (Rocklatan) tramadol 50 mg tablet 50 mg PO Q6H PRN PRN Pain Score 01/15/24 Unknown Rx 4-5 Or Pre Pt/Ot 7 days #28 tabs doxycycline monohydrate 100 mg 100 mg PO BID #10 CAPSULES 05/30/24 Unknown Rx capsule prednisone 20 mg tablet 60 mg (3 x 20 mg) PO DAILY #15 05/30/24 Unknown Rx TABLETS prednisone 20 mg tablet 40 mg (2 x 20 mg) PO DAILY #10 tabs 06/20/24 Unknown Rx Allergy/AdvReac Type Severity Reaction Status Date / Time adhesive tape (tape) Allergy NEEDS Verified 06/19/24 19:18 FOLLOW-UP amoxicillin Allergy YEAST Verified 06/19/24 19:18 INFECTION cephalexin monohydrate (From Allergy Rash Verified 06/19/24 19:18 Keflex) clopidogrel bisulfate (From Allergy Other Verified 06/19/24 19:18 Plavix) Family History Daughter Breast cancer Father Hypertension Sister Cancer Kidney disease Mother Pancreatic cancer Surgical History History of left hip hemiarthroplasty S/P fine needle aspiration (~10/2020) H/O dilation and curettage (~07/10/20) History of Achilles tendon repair Retinopathy History of lumpectomy of left breast Social History household members: spouse Smoking Status: Former smoker alcohol intake: never substance use type: does not use caffeine: Yes what type of physical activity do you participate in: none seatbelt use: always do you feel safe at home: Yes additional social history: [employer]- retired ROS ROS ED ROS Narrative Constitutional: No fever, no chills. HEENT: No sore throat. No neck pain. No loss of vision. No rhinorrhea. Cardiovascular: No chest pain. No palpitations. No pedal edema. Respiratory: Positive occasionally productive cough, increasing shortness of breath. Abdominal: No abdominal pain. No nausea. No vomiting. Genitourinary: No dysuria. No hematuria. Musculoskeletal: No myalgias. No arthralgias. Neurologic: No headaches. No dizziness. No lightheadedness. Skin: No rash. No change in color. Psychiatric: No depression. No anxiety. EXAM Physical Exam Narrative Exam Narrative: Afebrile. Vital signs noted. Nontoxic-appearing. Regular rate and rhythm. No respiratory distress. No tachypnea. Occasional expiratory wheezing moving a good amount of air bilateral bases. Abdomen is soft and nontender with normoactive bowel sounds. No pedal edema. Const Vital Signs: 06/19/24 19:14 06/19/24 20:38 06/19/24 20:39 Temperature 97.1 F L 98.0 F Temperature Source Temporal Oral Pulse Rate 94 85 Respiratory Rate 18 18 Respiratory Effort Normal Non-Labored Respiratory Depth Normal Respiratory Pattern Normal Blood Pressure 144/59 H 146/74 H Blood Pressure Mean 87 98 Pulse Ox 94 96 Oxygen Delivery Method Room Air Room Air Room Air 06/19/24 21:00 06/19/24 21:38 06/19/24 21:53 Temperature Temperature Source Pulse Rate 93 90 Respiratory Rate 20 H 26 H Respiratory Effort Respiratory Depth Respiratory Pattern Tachypnea Blood Pressure 121/96 H Blood Pressure Mean 104 Pulse Ox 94 94 Oxygen Delivery Method Room Air Room Air 06/19/24 22:00 06/19/24 23:18 06/20/24 00:00 Temperature 97.9 F 98.3 F 98.0 F Temperature Source Oral Oral Oral Pulse Rate 89 78 78 Respiratory Rate 24 H 26 H 26 H Respiratory Effort Respiratory Depth Respiratory Pattern Blood Pressure 144/61 H 144/61 H 130/89 H Blood Pressure Mean 88 88 102 Pulse Ox 94 97 93 Oxygen Delivery Method Room Air Room Air Room Air MDM MDM MDM Narrative Medical decision making narrative: Differential diagnosis includes but not limited to COPD exacerbation versus asthma exacerbation versus a combination of both. I have a low suspicion for CHF because the history and physical does not support this and she does not have a history of CHF. I also have low suspicion for pulmonary embolism because she is PERC negative. Also the differential would be pneumonia versus pneumothorax but history and physical does not necessarily support pneumothorax. Comprehensive workup was pursued. Pulse ox is 96% on room air without evidence of hypoxia. EKG was obtained and interpreted by myself independently as normal sinus rhythm at 89 bpm without ectopy or acute ST changes. No STEMI. She has borderline criteria for LVH by voltage. With the suspicion of COPD exacerbation, as she has not been on steroids in a while, I am hesitant to start her on another burst because she was told that she should not take them with her diabetes. She was given a DuoNeb aerosolized treatment. I reviewed her laboratory work and she has normal white count of 8.4, hemoglobin stable at 11.2, hematocrit 36.6, platelet count normal at 234. Electrolyte panel shows normal sodium of 134 with potassium 4.4, BUN of 10 and creatinine 1. 08, while glucose is elevated 263, she has normal anion gap of 6 so I doubt diabetic ketoacidosis. BNP is normal at 81.6. She is not having chest pain so I do not feel troponin was indicated. Chest x-ray in 1 view interpreted by myself independently shows no pneumothorax or pneumonia. I reviewed the radiology report which confirms my independent interpretation. I do not feel antibiotics are indicated currently. Repeat examination at approximately 12:15 AM shows her resting comfortably sitting in a chair. She is moving a good amount of air. Pulse ox on the monitor is 95% on room air without evidence of hypoxia. I discussed with her the use of prednisone and how it can increase her blood sugars, but she is agreeable to take them. She was given a loading dose of 60 mg here in the em ergency department and a prescription for a burst of 40 mg for the next 5 days. She will follow-up with her primary care provider. She will return with increased difficulty breathing, new or worsening symptoms. Disposition is discharged home in stable condition. History & Record Review Discussion w/independent historian: Patient Lab Data Attestation: I reviewed the patient's lab results. Labs: Laboratory Results - last 24 hr 06/19/24 22:14 WBC 8.4 RBC 4.37 Hgb 11.2 L Hct 36.6 L MCV 83.8 MCH 25.6 L MCHC 30.6 L RDW Std Deviation 50.9 H RDW Coeff of Vijay 16.6 H Plt Count 234 MPV 10.4 Immature Gran % (Auto) 0.200 Neut % (Auto) 56.2 Lymph % (Auto) 27.7 [place] % (Auto) 6.7 Eos % (Auto) 8.7 H Baso % (Auto) 0.5 Absolute Neuts (auto) 4.7 Absolute Lymphs (auto) 2.32 Nucleated RBC % 0 Sodium 137 Potassium 4.4 Chloride 104 Carbon Dioxide 26.0 Anion Gap 6 BUN 10 Creatinine 1.08 H Est GFR (MDRD) Af Amer 63 Est GFR (MDRD) Non-Af 52 L BUN/Creatinine Ratio 9.3 L Glucose 263 H Calcium 11.0 H B-Natriuretic Peptide 81.6 Radiography Diagnostic Testing: Clinical Impression(s) from Imaging Studies Chest X-Ray 06/19/24 21:23 IMPRESSION: No evidence of active intrathoracic disease. Electronically Signed: Selam Hebert MD at 22:41 EDT , Discharge Plan Triage Chief Complaint: Shortness of Breath ED Provider: Billy Kothari Dx/Rx/DC Orders Clinical Impression: COPD exacerbation, SOB (shortness of breath) Instructions: ED COPD Flare, ED Dyspnea Prescriptions: New prednisone 20 mg tablet 40 mg PO DAILY Qty: 10 0RF No Action Januvia 50 mg tablet 50 mg PO DAILY Jardiance 10 mg tablet 10 mg PO DAILY multivitamin Tablet 1 tab PO DAILY pravastatin 20 mg tablet 20 mg PO DAILY budesonide-formoterol [Symbicort] 160-4.5 mcg/actuation HFA aerosol inhaler 2 puff inhalation BID aspirin 81 MG tablet,chewable 81 mg PO DAILY metoprolol tartrate 25 MG tablet 25 mg PO BID magnesium oxide 400 MG tablet 400 mg PO BID diltiazem HCl 180 MG tablet extended release 24 hr 180 mg PO DAILY albuterol sulfate 1 INHALER inhaler 2 puff INHALATION Q4H PRN (Reason: Sob &/Or Wheezing) pantoprazole 40 MG tablet 40 mg PO QHS gabapentin 100 mg capsule 100 mg PO QHS roflumilast 500 mcg tablet 500 mcg PO DAILY Trulicity 0.75 mg/0.5 mL pen injector 0.75 mg subcut MO ascorbic acid (vitamin C) [Vitamin C] 250 mg tablet 250 mg PO DAILY azelastine 137 mcg (0.1 %) aerosol,spray 137 mcg intranasal BID insulin glargine-yfgn 100 unit/mL (3 mL) Insulin Pen 15 unit subcut BID Qty: 0 0RF Rx Instructions: Hold if glucose less than 130 mg/dl insulin lispro [Humalog KwikPen Insulin] 100 unit/mL Insulin Pen 8 unit subcut TIDAC Rx Instructions: Hold if glucose less than 130 mg/dl acetaminophen 500 mg Tablet 1,000 mg PO Q6H PRN PRN (Reason: Pain Score 1-3) Qty: 0 0RF tramadol 50 mg Tablet 50 mg PO Q6H PRN PRN (Reason: Pain Score 4-5 Or Pre Pt/Ot) 7 Days Qty: 28 0RF Eliquis 5 mg Tablet 2.5 mg PO BID 11 Days Qty: 11 0RF Rocklatan 0.02-0.005 % Drops 0 drp EACH EYE DAILY Qty: 0 0RF prednisone 20 mg tablet 60 mg PO DAILY Qty: 15 0RF doxycycline monohydrate 100 mg capsule 100 mg PO BID Qty: 10 0RF Primary Care Provider: Ramone Smiley Referrals: Ramone Smiley MD [Primary Care Provider] - 3-5 Days if not improving Activity Restrictions/Additional Instructions: Take the prednisone as directed, and continue use of your inhaler every 4-6 hours as needed for shortness of breath. Check your blood sugar as the steroids may increase them. Return with increased difficulty breathing, new or worsening symptoms. Print Language: Filipino Disposition Disposition: Home, Self Care
[2024-06-19] MEDS: Ipratropium/Albuterol Sulfate 3 ML AMPUL.NEB INHALATION (21:38)
[2024-06-19 22:22] LABS: Absolute Lymphocyte Count 2.32 X10^3/uL (0.83-4.51); Absolute Neutrophil Count 4.7 X10^3/uL (2.0-7.7); Basophil# 0.04 X10^3/uL; Basophil% 0.5 % (0-1); Eosinophil# 0.73 X10^3/uL; Eosinophils% 8.7 % (0-5); Hematocrit 36.6 % (37-47); Hemoglobin 11.2 g/dL (12.0-15.0); Lymphocyte # 2.32 X10^3/ul (0.83-4.51); Lymphocyte % 27.7 % (19-41); Mean Corp Hgb Conc 30.6 g/dL (32-36); Mean Corpuscular Hgb 25.6 pg (27.0-32.0); Mean Corpuscular Volume 83.8 fL (81-99); Mean Platelet Vol. 10.4 fl (6.2-12.0); Monocyte# 0.56 X10^3/uL; Monocyte% 6.7 % (0-10); NRBC Flagged by Analyzer 0 % (0-5); Neutrophil # 4.71 X10^3/uL (2.7-7.7); Neutrophil % 56.2 % (47-70); Platelet Count 234 K/mm3 (150-450); RBC Distribution Width CV 16.6 % (11.6-14.6); RBC Distribution Width SD 50.9 fl (35.1-43.9); Red Blood Count 4.37 M/mm3 (4.2-5.4); White Blood Count 8.4 K/mm3 (4.4-11.0)
--- OUTSIDE RECORDS SUMMARY | 2024-06-19 22:23 | XMS RPT_ITS | CCD ---
Author Organization [facility] Inform ion Partnership [facility] Care Team Providers Care Filter Tip Inspector Name Role Phone Zuleika Heaton Unavailable Unavailable LEE ALAMO Unavailable Unavailable PROVIDER, UNKNOWN Unavailable Unavailable Zuleika Heaton Unavailable Unavailable Baljit LEARY, Ramone Noe Primary Care Provider [phone] Ramone Smiley MD Primary Care Provider Allergies Allergy Classification Reported Allergen(s) Allergy Type Date of Onset Reaction(s) Facility (2 sources) Adhesive Tape; Translations: [ADHESIVE TAPE] allergy to substance 5 [facility] Work Phone: (2 sources) amoxicillin drug allergy 5 yeast infection [facility] Work Phone: (2 sources) cephalexin drug allergy 5 [facility] Work Phone: (2 sources) clopidogrel drug allergy 5 [facility] Work Phone: (5 sources) Cephalexin Drug Allergy 5 Rash [facility] Work Phone: (5 sources) clopidogrel Drug Allergy 1 Hives [facility] Work Phone: (5 sources) tape [Other] Propensity to adverse reactions 5 [facility] Medications Completed/Discontinued Medications Medication Drug Class(es) Dates Sig (Normalized) Sig (Original) 200 actuat albuterol 0.09 mg/actuat metered dose inhaler (7 sources) beta2-Adrenergic Agonist Start: 08-29-2015 VENTOLIN HFA 108 (90 Base) MCG/ACT AERS As needed - 90mcg/inh ALBUTEROL SULFATE 12252431225 Se Good MD Start: 08-29-2015 VENTOLIN HFA 1 08 (90 Base) MCG/ACT AERS As needed - 90mcg/inh ALBUTEROL SULFATE 32672758202 Se Good MD Start: 12-11-2011 take 3 mL by inhalat ion three times daily as needed for wheezing albuterol 2.5 mg /3 mL (0.083 %) INHALATION nebulizer solution Indications: Unspecified asthma(493.90) Use 3 mL via nebulizer three times daily as needed. OVER 5-15 MINUTES. FOR WHEEZING AND SHORTNESS OF BREATH. 100 Vial 3 12/11/2011 Active Comment on above: Use 3 mL via nebuliz er three times daily as needed. OVER 5-15 MINUTES. FOR WHEEZING AND SHORTNESS OF BREATH. amLODIPine 5 mg oral tablet (4 sources) Dihydropyridine Calcium Channel Sunshine Start: 5 End: 5 take 1 tablet by mouth once daily AMLODIPINE BESYLATE 5 MG TABS One tablet by mouth daily AMLODIPINE BESYLATE 25525178425 Se Good MD ascorbic acid 250 mg oral tablet (5 sources) Vitamin C take 1 tablet by mouth every week ascorbic acid, vitamin C, (VITAMIN C) 250 mg tablet Take 250 mg by mouth one time a week. 0 Active take 1 tablet by mouth once trino y ascorbic acid, vitamin C, (VITAMIN C) 250 mg tablet Take 250 mg by mouth once daily. 0 Active Comment on above: Take 250 mg by mouth once daily. Take 250 mg by mouth one time a week. aspirin 81 mg oral tablet (7 sources) Nonsteroidal Anti-inflammatory Drug Start: 08-23-2015 take 1 tablet by mouth once daily ASPIRIN 81 MG TABS One tablet by mouth daily ASPIRIN 05446619042 Kadie Álvarez RN Start: 08-23-2015 take 1 tablet by martin th once daily ASPIRIN 81 MG TABS One tablet by mouth daily ASPIRIN 27769413175 Kadie Álvarez RN take 1 tablet by martin th once daily aspirin, enteric coated (ASPIRIN, ENTERIC COATED) 81 mg EC tablet Take 81 mg by mouth once daily. 0 Active Comment on above: Take 81 mg by mouth once daily. azelastine hydrochloride 0.206 mg/actuat metered dose nasal spray (7 sources) Histamine-1 Receptor Antagonist Start: 5 take 1-2 spray(s) nasal route twice daily ASTEPRO 0.15 % SOLN 1-2 sprays in each nostril twice daily AZELASTINE HCL 34701908160 Kadie Álvarez RN Start: 08-23-2015 take 1-2 spray(s) na deepali route twice daily ASTEPRO 0.15 % SOLN 1-2 sprays in each nostril twice daily AZELASTINE HCL 42463886930 Kadie Álvarez RN take 1-2 spray(s) na deepali route twice daily Azelastine 0.15 % (205.5 mcg) spry Indications: Other iron deficiency anemia Use 1-2 Sprays in each nostril twice daily. 0 Active Comment on above: Use 1-2 Sprays in ea ch nostril twice daily. betamethasone 0.5 mg/ml topical lotion (2 sources) Corticosteroid Start: 08-23-2015 BETAMETHASONE DIPROPIONATE 0.05 % LOTN apply to lower legs 1-2 times daily BETAMETHASONE DIPROPIONATE 99673666213 Kadie Álvarez RN Start: 08-23-2015 BETAMETHASONE DIPROPIONATE 0.05 % LOTN apply to lower legs 1- 2 times daily BETAMETHASONE DIPROPIONATE 09621333863 Kadie Álvarez RN bisacodyl 5 mg delayed release oral tablet (2 sources) Stimulant Laxative Start: 08-23-2015 take 1 tablet by mouth once daily as needed BISACODYL EC 5 MG TBEC One tablet by mouth daily as needed BISACODYL 06155149343 Kadie Álvarez RN 120 actuat budesonide 0.16 mg/actuat / formoterol fumarate 0.0045 mg/actuat metered dose inhaler (7 sources) Corticosteroid, beta2-Adrenergic Agonist Start: 08-23-2015 SYMBICORT 160-4.5 MCG/ACT AERO 2 puffs daily BUDESONIDE-FORMOTE ROL FUMARATE 38987510974 Kadie Álvarez RN Start: 08-23-2015 SYMBICORT 160- 4.5 MCG/ACT AERO 2 puffs daily BUDESONIDE-FORMOTEROL FUMARATE 71436726124 Kadie Álvarez RN take 1 puff(s) by in halation twice daily budesonide-formoterol (SYMBICORT) 160-4.5 mcg/actuation inhaler Indications: Other iron deficiency anemia Inhale 1 Puff as instructed twice daily. 0 Active Comment on above: Inhale 1 Puff as ins tructed twice daily. calcium carbonate (2 sources) Start: take 1 tablet by mouth once daily CALCIUM 600 600 MG TABS One tablet by mouth daily CALCIUM CARBONATE 10732187288 Kadie Álvarez RN Calcium Carbonate / vitamin D3 (5 sources) take 1 tablet by mouth once daily CALCIUM CARBONATE/VITAMIN D3 (CALCIUM 600 + D,3, ORAL) Indications: Other iron deficiency anemia Take 1 tablet by mouth once daily. 0 Active Comment on above: [facility] chlorpheniramine maleate 4 mg oral tablet (2 sources) Histamine-1 Receptor Antagonist Start: CHLORPHENIRAMINE MALEATE 4 MG TABS As needed CHLORPHENIRAMINE MALEATE [id number] Se Good MD cholecalciferol, vitamin D3, (VITAMIN D3 ORAL) (5 sources) take 2000 [IU] by mouth once daily cholecalciferol, vitamin D3, (VITAMIN D3 ORAL) Take 2,000 Units by mouth once daily. 0 Active Comment on above: Take 2,000 Units by mouth once daily. COD LIVER OIL CAPS (7 sources) Start: take 1 tablet by mouth once daily COD LIVER OIL CAPS One tablet by mouth daily COD LIVER OIL CAPS 65728092022 Kadie Álvarez RN take 1 capsule by mouth once neftaly ly Cod Liver Oil cap Indications: Other iron deficiency anemia Take 1 capsule by mouth once daily. 0 Active Comment on above: Take 1 capsule by mo [facility] once daily. 24 hr dilTIAZem hydrochloride 180 mg extended release oral capsule (7 sources) Calcium Channel Sunshine Start: 08-29-2015 take 1 tablet by mouth once daily DILT-XR 180 MG [id number] One tablet by mouth daily DILTIAZEM HCL 60258087578 Se Good MD Start: 08-29-2015 take 1 tablet by martin th once daily DILT-XR 180 MG [id number] One tablet by mouth daily DILTIAZEM HCL 41893424613 Se Good MD Comment on above: Take 180 mg by mouth once daily. ferrous sulfate 325 mg oral tablet (2 sources) Start: 6 take 1 tablet by mouth twice daily FERROUS SULFATE 325 (65 Fe) MG TABS One tablet by mouth twice daily FERROUS SULFATE 87596163354 Mariana Finley RN insulin aspart, human 100 unt/ml injectable solution (5 sources) Insulin Analog Start: 4 insulin aspart (NOVOLOG) 100 unit/mL soln Indications: Type II or unspecified type diabetes mellitus with neurological manifestations, uncontrolled(250.62) HOLD 10/10/13. Take 6 units with breakfast, 4 units with lunch, and 7 units with supper. 2 Vial 11 10/10/2013 Active Comment on above: HOLD 10/10/13. Take 6 units with breakfast, 4 units with lunch, and 7 units with supper. insulin detemir 100 unt/ml injectable solution (9 sources) Insulin Analogue Start: 5 inject 15 [IU] by subcutaneous injection once daily at bedtime LEVEMIR 100 UNIT/ML SOLN 15 units SQ daily at bedtime INSULIN DETEMIR 52486861306 Mariana Finley RN Start: 08-23-2015 inject 28 [IU] by avila bcutaneous injection once daily LEVEMIR 100 UNIT/ML SOLN 28 units SQ daily INSULIN DETEMIR 60818739844 Kadie Álvarez RN Start: 08-23-2015 take 15 [IU] by subc utaneous injection once daily at bedtime LEVEMIR 100 UNIT/ML SOLN 15 units SQ daily at bedtime INSULIN DETEMIR 65026756136 Mariana Finley RN Start: 08-23-2015 take 28 [IU] by subc utaneous injection once daily LEVEMIR 100 UNIT/ML SOLN 28 units SQ daily INSULIN DETEMIR 21861905650 Kadie Álvarez RN inject 52 [IU] by avila bcutaneous injection twice daily insulin detemir (LEVEMIR) 100 unit/mL injection Indications: Other iron deficiency anemia Inject 52 Units subcutaneously twice daily. 0 Active inject 46 [IU] by avila bcutaneous injection twice daily insulin detemir (LEVEMIR) 100 unit/mL injection Indications: Other iron deficiency anemia Inject 46 Units subcutaneously twice daily. 0 Active Comment on above: Inject 46 Units subc utaneously twice daily. Inject 52 Units subc utaneously twice daily. linaclotide 0.29 mg oral capsule (2 sources) Guanylate Cyclase-C Agonist Start: 5 take 1 tablet by mouth once daily LINZESS 290 MCG CAPS One tablet by mouth daily LINACLOTIDE 44033508192 Kadie Álvarez RN Start: 08-23-2015 take 1 tablet by martin th once daily LINZESS 290 MCG CAPS One tablet by mouth daily LINACLOTIDE 48675646074 Kadie Álvarez RN lisinopril 40 mg oral tablet (9 sources) Angiotensin Converting Enzyme Inhibitor Start: 08-23-2015 take 1 tablet by mouth once daily LISINOPRIL 40 MG TABS One tablet by mouth daily LISINOPRIL 44056599014 Se Good MD Start: 09-09-2007 LISINOPRIL 40 MG TAB 1 pill twice daily 180 0 09/09/2007 Active Comment on above: 1 pill twice daily lubiprostone 0.024 mg oral capsule (5 sources) Chloride Channel Activator take 1 capsule by mouth twice daily at mealtime lubiprostone (AMITIZA) 24 mcg capsule Take 24 mcg by mouth twice daily with meals. 0 Active Comment on above: Take 24 mcg by mouth twice daily with meals. magnesium (2 sources) Start: 08-23-20 15 take 1 tablet by mouth once daily MAGNESIUM CAPS One tablet by mouth daily MAGNESIUM CAPS 27718792571 Kadie Álvarez RN magnesium oxide 400 mg oral tablet (5 sources) take 1 tablet by mouth twice daily magnesium oxide (MAG-OX) 400 mg (241.3 mg magnesium) tablet Take 400 mg by mouth twice daily. 0 Active Comment on above: Take 400 mg by mouth twice daily. metFORMIN hydrochloride 1000 mg oral tablet (2 sources) Biguanide take 1 tablet by mouth twice daily GLUCOPHAGE 1000 MG TABS One tablet by mouth twice daily METFORMIN HCL 83873624058 Julita Chau MACADAM RAKER metFORMIN hydrochloride 1000 mg / SITagliptin 50 mg oral tablet (4 sources) Biguanide, Dipeptidyl Peptidase 4 Inhibitor Start: 08-23-20 End: 08-29-20 15 take 1 tablet by mouth twice daily JANUMET 50-1000 MG TABS One tablet by mouth twice daily SITAGLIPTIN-METFORMI N HCL 78842921590 Se Good MD Start: 08-23-2015 End: 08-29-2015 take 1 tablet by mouth twice daily JANUMET 50-1000 MG TABS One tablet by mouth twice daily SITAGLIPTIN-METFORMIN HCL 05898199860 Se Good MD Start: 08-23-2015 take 1 tablet by martin th twice daily JANUMET 50-1000 MG TABS One tablet by mouth twice daily SITAGLIPTIN-METFORMIN HCL 34183433249 Kadie Álvarez RN metoprolol tartrate 25 mg oral tablet (7 sources) beta-Adrenergic Sunshine Start: 04-09-2016 take 1 tablet by mouth twice daily METOPROLOL TARTRATE 25 MG TABS One tablet by mouth twice daily METOPROLOL TARTRATE 62427013632 Se Good MD take 1 tablet by mouth twice neftaly ly metoprolol succinate ER (TOPROL XL) 25 mg 24 hr tablet Indications: Other iron deficiency anemia Take 25 mg by mouth twice daily. 0 Active Comment on above: Take 25 mg by mouth twice daily. MULTIPLE VITAMIN (2 sources) Start: 08-23-20 15 take 1 tablet by mouth once daily MULTIVITAMINS TABS One tablet by mouth daily MULTIPLE VITAMIN Kadie Álvarez RN pantoprazole 40 mg delayed release oral tablet (5 sources) Proton Pump Inhibitor take 1 tablet by mouth once daily pantoprazole DR (PROTONIX) 40 mg tablet Take 40 mg by mouth once daily. 0 Active Comment on above: Take 40 mg by mouth once daily. polyethylene glycol 3350 16427 mg powder for oral solution (5 sources) Osmotic Laxative polyethylene gl ycol 3350 (MIRALAX) 17 gram packet Take 17 g by mouth once daily as needed. 0 Active Comment on above: Take 17 g by mouth o nce daily as needed. potassium chloride 20 meq extended release oral tablet (5 sources) Start: 12-12-19 20 take 2 tablets by mouth twice daily potassium chloride 20 mEq TbER Take 2 tablets by mouth twice daily. 0 12/12/2019 Active Comment on above: Take 2 tablets by mo [facility] twice daily. pravastatin sodium 20 mg oral tablet (7 sources) HMG-CoA Reductase Inhibitor Start: 08-23-20 15 take 1 tablet by mouth once daily PRAVASTATIN SODIUM 20 MG TABS One tablet by mouth daily PRAVASTATIN SODIUM 37304687836 Kadie Álvarez RN Comment on above: Take 20 mg by mouth once daily. promethazine hydrochloride 12.5 mg oral tablet (2 sources) Phenothiazine Start: 08-23-20 15 take 1 tablet by mouth three times daily as needed PROMETHAZINE HCL 12.5 MG TABS One tablet by mouth three times daily as needed PROMETHAZINE HCL 61948243492 Kadie Álvarez RN psyllium 6000 mg powder for oral suspension (2 sources) Start: 08-23-20 15 PSYLLIUM HUSK 100 % POWD 3 times daily with water PSYLLIUM [id number] Kadie Álvarez RN PSYLLIUM HUSK, BULK, MISC (5 sources) PSYLLIUM HUSK, B ULK, MISC Indications: Other iron deficiency anemia One powder packet in 3-4 ounces of water every four hours as needed. 0 Active Comment on above: One powder packet in 3-4 ounces of water every four hours as needed. raNITIdine 300 mg oral capsule (7 sources) Histamine-2 Receptor Antagonist Start: 08-23-20 15 take 1 tablet by mouth once daily RANITIDINE HCL 300 MG CAPS One tablet by mouth daily RANITIDINE HCL 99411431439 Kadie Álvarez RN take 1 tablet by mouth once trino y Ranitidine HCl 300 mg tablet Indications: Other iron deficiency anemia Take 300 mg by mouth once daily. 0 Active Comment on above: Take 300 mg by mouth once daily. roflumilast 0.5 mg oral tablet (5 sources) Phosphodiesterase 4 Inhibitor take 1 tablet by mouth once daily roflumilast (DALIRESP) 500 mcg tab Take 500 mcg by mouth once daily. 0 Active Comment on above: Take 500 mcg by mout h once daily. sennosides, senior care 8.6 mg oral tablet (5 sources) take 1 tablet by mouth twice daily senna (SENNA LAXATIVE) 8.6 mg tab Take 8.6 mg by mouth twice daily. 0 Active Comment on above: Take 8.6 mg by mouth twice daily. SITagliptin 50 mg oral tablet (5 sources) Dipeptidyl Peptidase 4 Inhibitor take 1 tablet by mouth once daily sitaGLIPtin (JANUVIA) 50 mg tablet Indications: Other iron deficiency anemia Take 50 mg by mouth once daily. 0 Active Comment on above: Take 50 mg by mouth once daily. sodium chloride 0.111 meq/ml nasal spray (5 sources) sodium chloride (SALINE MIST) 0.65 % nasal spray Use 1 [place] in the nose as needed. 0 Active Comment on above: Use 1 [place] in the n ose as needed. tiotropium 0.018 mg inhalant powder (2 sources) Anticholinergic Start: 08-23-20 SPIRIVA HANDIHALER 18 MCG CAPS as needed TIOTROPIUM BROMIDE MONOHYDRATE 78525711014 Kadie Álvarez RN Start: 08-23-2015 SPIRIVA HANDIH ALER 18 MCG CAPS as needed TIOTROPIUM BROMIDE MONOHYDRATE 32820436854 Kadie Álvarez RN Problems Active Problems Problem Classification Problem Date [...] Results Test Name Value Interpretation Reference Range Facility CBC W Auto Differential pane l (Bld)on 05-07-2022 Basophils (Bld) [#/Vol] 0.05 10*3/uL Normal <0.11 [facility] Comment on above: Order Comment: Flip headley Type: BLOOD SPECIMEN Ordering Facility: [facility] Address: [address] [place] [address] Performed By: #### 5 7021-8 #### [facility] CLIA [id number] [address] [place] [address] [place] Basophils/100 WBC (Bld) 0.7 % Normal [facility] Comment on above: Order Comment: Flip headley Type: BLOOD SPECIMEN Ordering Facility: [facility] Address: [address] [place] [address] Performed By: #### 5 7021-8 #### [facility] CLIA [id number] [address] [place] [address] [place] Differential cell count method Nom (Bld) Auto Normal [facility] Comment on above: Order Comment: Christiei men Type: BLOOD SPECIMEN Ordering Facility: [facility] Address: [address] [place] [address] Performed By: #### 5 7021-8 #### [facility] CLIA [id number] [address] [place] [address] [place] Eosinophils (Bld) [#/Vol] 0.32 10*3/uL Normal <0.46 [facility] Comment on above: Order Comment: Speci men Type: BLOOD SPECIMEN Ordering Facility: [facility] Address: [address] [place], [place] [id number] Performed By: #### 5 7021-8 #### [facility] CLIA [id number] [address] [place] [address] [place] Eosinophils/100 WBC (Bld) 4.7 % Normal [facility] Comment on above: Order Comment: Speci men Type: BLOOD SPECIMEN Ordering Facility: [facility] Address: [address] [place], [place] [id number] Performed By: #### 5 7021-8 #### [facility] CLIA [id number] [address] [place] [address] [place] Erythrocyte distribution width (RBC) [Ratio] 14.6 % Normal 11.5-15.0 [facility] Comment on above: Order Comment: Speci men Type: BLOOD SPECIMEN Ordering Facility: [facility] Address: [address] [place], [place] [address] Performed By: #### 5 7021-8 #### [facility] CLIA [id number] [address] [place] [address] [place] Hematocrit (Bld) [Volume fraction] 37.2 % Normal 36.0-46.0 [facility] Comment on above: Order Comment: Speci men Type: BLOOD SPECIMEN Ordering Facility: [facility] Address: [address] [place], [place] [address] Performed By: #### 5 7021-8 #### [facility] CLIA [id number] [address] [place] [address] [place] Hemoglobin (Bld) [Mass/Vol] 12.0 g/dL Normal 11.5-15.5 [facility] Comment on above: Order Comment: Speci men Type: BLOOD SPECIMEN Ordering Facility: [facility] Address: [address] [place], [place] [id number] Performed By: #### 5 7021-8 #### [facility] CLIA [id number] [address] [place] [address] [place] IMMATURE GRAN % 0.1 % Normal [facility] Comment on above: Order Comment: Speci men Type: BLOOD SPECIMEN Ordering Facility: [facility] Address: [address] [place], [place] [id number] Performed By: #### 5 7021-8 #### [facility] CLIA [id number] [address] [place] [address] [place] IMMATURE GRAN ABS <0.03 Normal <0.10 [facility] Comment on above: Order Comment: Speci men Type: BLOOD SPECIMEN Ordering Facility: [facility] Address: [address] [place] [address] Performed By: #### 5 7021-8 #### [facility] CLIA [id number] [address] [place] [address] [place] Lymphocytes (Bld) [#/Vol] 2.03 10*3/uL Normal 1.00-4.00 [facility] Comment on above: Order Comment: Speci men Type: BLOOD SPECIMEN Ordering Facility: [facility] Address: [address] [place], [place] [address] Performed By: #### 5 7021-8 #### [facility] CLIA [id number] [address] [place] [address] [place] Lymphocytes/100 WBC (Bld) 29.7 % Normal [facility] Comment on above: Order Comment: Speci men Type: BLOOD SPECIMEN Ordering Facility: [facility] Address: [address] [place], [place] [address] Performed By: #### 5 7021-8 #### [facility] CLIA [id number] [address] [place] [address] [place] MCH (RBC) [Entitic mass] 28.5 pg Normal 26.0-34.0 [facility] Comment on above: Order Comment: Speci men Type: BLOOD SPECIMEN Ordering Facility: [facility] Address: [address] [place] [address] Performed By: #### 5 7021-8 #### [facility] CLIA [id number] [address] [place] [address] [place] MCHC (RBC) [Mass/Vol] 32.3 g/dL Normal 30.5-36.0 [facility] Comment on above: Order Comment: Speci men Type: BLOOD SPECIMEN Ordering Facility: [facility] Address: [address] [place] [address] Performed By: #### 5 7021-8 #### [facility] CLIA [id number] [address] [place] [address] [place] MCV (RBC) [Entitic vol] 88.4 fL Normal 80.0-100.0 [facility] Comment on above: Order Comment: Speci men Type: BLOOD SPECIMEN Ordering Facility: [facility] Address: [address] [place] [address] Performed By: #### 5 7021-8 #### [facility] CLIA [id number] [address] [place] [address] [place] Monocytes (Bld) [#/Vol] 0.47 10*3/uL Normal <0.87 [facility] Comment on above: Order Comment: Speci men Type: BLOOD SPECIMEN Ordering Facility: [facility] Address: [address] [place] [address] Performed By: #### 5 7021-8 #### [facility] CLIA [id number] [address] [place] [address] [place] Monocytes/100 WBC (Bld) 6.9 % Normal [facility] Comment on above: Order Comment: Speci men Type: BLOOD SPECIMEN Ordering Facility: [facility] Address: [address] Performed By: #### 5 7021-8 #### [facility] CLIA [id number] [address] [place] [address] [place] Neutrophils (Bld) [#/Vol] 3.96 10*3/uL Normal 1.45-7.50 [facility] Comment on above: Order Comment: Speci men Type: BLOOD SPECIMEN Ordering Facility: [facility] Address: [address] [place], [place] [address] Performed By: #### 5 7021-8 #### [facility] CLIA [id number] [address] [place] [address] [place] Neutrophils/100 WBC (Bld) 57.9 % Normal [facility] Comment on above: Order Comment: Speci men Type: BLOOD SPECIMEN Ordering Facility: [facility] Address: [address] [place], [place] [address] Performed By: #### 5 7021-8 #### [facility] CLIA [id number] [address] [place] [address] [place] Nucleated RBC (Bld) [#/Vol] 10*3/uL Normal <0.01 [facility] Comment on above: Order Comment: Speci men Type: BLOOD SPECIMEN Ordering Facility: [facility] Address: [address] [place], [place] [address] Performed By: #### 5 7021-8 #### [facility] CLIA [id number] [address] [place] [address] [place] Nucleated RBC/100 WBC (Bld) [Ratio] 0.0 /100 WBC Normal [facility] Comment on above: Order Comment: Speci men Type: BLOOD SPECIMEN Ordering Facility: [facility] Address: [address] [place], [place] [address] Performed By: #### 5 7021-8 #### [facility] CLIA [id number] [address] [place] [address] [place] Platelet mean volume (Bld) [Entitic vol] 10.0 fL Normal 9.0-12.7 [facility] Comment on above: Order Comment: Speci men Type: BLOOD SPECIMEN Ordering Facility: [facility] Address: [address] [place], [place] [address] Performed By: #### 5 7021-8 #### [facility] CLIA [id number] [address] [place] [address] [place] Platelets (Bld) [#/Vol] 246 10*3/uL Normal 150-400 [facility] Comment on above: Order Comment: Speci men Type: BLOOD SPECIMEN Ordering Facility: [facility] Address: [address] [place] [address] Performed By: #### 5 7021-8 #### [facility] CLIA [id number] [address] [place] [address] [place] RBC (Bld) [#/Vol] 4.21 10*6/uL Normal 3.90-5.20 [facility] Comment on above: Order Comment: Speci men Type: BLOOD SPECIMEN Ordering Facility: [facility] Address: [address] [place], [place] [address] Performed By: #### 5 7021-8 #### [facility] CLIA [id number] [address] [place] [address] [place] WBC (Bld) [#/Vol] 6.84 10*3/uL Normal 3.70-11.00 [facility] Comment on above: Order Comment: Speci men Type: BLOOD SPECIMEN Ordering Facility: [facility] Address: [address] [place], [place] [address] Performed By: #### 5 7021-8 #### [facility] CLIA [id number] [address] [id number] [place] CNOVSPon 05-07-2022 CNOVSP Visit (SP) Office (EVELYN) ---- OLGA DONALDSON ([id number]) 1945 F Date Time Provider Department 05/07/22 1:30 PM LILY IRAHETA During your visit today, we recorded the following information about you: Temperature Pulse Blood pressure Weight 97.2 degrees 66/minute 160/68 73.7 kg Height 1.581 m Lily Iraheta APRN.PLUMBER MAINTENANCE 05/07/2022 2:25 PM Signed Chief Complaint Patient presents with: Established Patient [...] an every 2-week basis for 4 cycles ([id number]). Completed a year of trastuzumab 06/16/06. Referred back or anemia. Admitted to [facility] 12/02/2019 for chest pain with ambulation. [...] B. Cecal polyp, biopsy: Tubular adenoma. COMMENT Immunohistochemistr y for Helicobacter pylori can be performed if clinically indicated. Please notify the Laboratory if it is needed. Pt. received iron sucrose March 2021. No new concerns today. Appetite: Too good. Energy level: Good. Denies fevers or recent illness. Resp:denies cough or sob, h/o asthma Cardiac:denies chest pain/palpitations GI:denies abd pain, n/v, moving bowels regularly :denies dysuria/hematuria-s elf caths 4x/day for past year Extrem:denies pain [...] 1.00 - 4.00 k/uL 2.70 2.30 2.03 Bergen% % 7.0 6.6 6.9 Abs Bergen <0.87 k/uL 0.49 0.47 0.47 Eosin% % 4.9 3.2 4.7 Abs Eosin <0.46 k/uL 0.34 0.23 0.32 Baso% % 0.7 0.6 0.7 Abs Baso <0.11 k/uL 0.05 0.04 0.05 Immature (more content not included)... Normal [facility] Ferritin SerPl-ncon 2021 Ferritin [Mass/Vol] 808.0 ng/mL High 14.7-205.1 [facility] Comment on above: Order Comment: Speci men Type: BLOOD SPECIMEN Ordering Facility: [facility] Address: [address] [place] [address] Performed By: #### 5 0190-8, 6-4 #### [facility] CLIA [id number] [address] [place] [address] [place] Iron and Iron binding capaci ty panelon 05-07-2022 Iron [Mass/Vol] 38 ug/dL Low 41-186 [facility] Comment on above: Order Comment: Speci men Type: BLOOD SPECIMEN Ordering Facility: [facility] Address: [address] [place] [address] Performed By: #### 5 0190-8, 2275-4 #### [facility] CLIA [id number] [address] [place] [address] [place] [facility] Iron binding capacity [Mass/Vol] 240 ug/dL Normal 232-386 [facility] Comment on above: Order Comment: Speci men Type: BLOOD SPECIMEN Ordering Facility: [facility] Address: [address] [place] [address] Performed By: #### 5 0190-8, 2275-4 #### [facility] CLIA [id number] [address] [place] [address] [place] Iron/TIBC [Molar ratio] 15.8 % Normal 15.0-57.0 [facility] Comment on above: Order Comment: Speci men Type: BLOOD SPECIMEN Ordering Facility: [facility] Address: [address] [place] [address] Performed By: #### 5 0190-8, 2275-4 #### [facility] CLIA [id number] [address] [place] [address] [place] CNPCamryn 02-10-2022 CNPN Telephone (HEMAWS) ---- OLGA DONALDSON ([id number]) 1945 F Date Time Provider Department 02/10/22 JOSEPH ROLLE During your visit today, we recorded the following information about you: Joseph Rolle DO 02/10/2022 6:21 AM Signed Can let her know CBC and iron levels doing well. Follow up as scheduled. DO Stacie Suarez LPN 02/10/2022 8:34 AM Signed Pt called and notified, pt voices understanding. Stacie Varner LPN Allergies As of Date: 02/10/2022 Noted Allergy Reaction KEFLEX (CEPHALEXIN) 07/02/2005 2 - Rash tape [Other] 07/30/2005 2 - Rash Comments: Nylon tape caused rash. Use paper tape. Also no dark brown bandaids. Spot bandaid ok. PLAVIX (CLOPIDOGREL BISULFATE) 08/04/2011 4 - Hives Date Reviewed: 05/07/2021 Reviewed by: Lily Iraheta APRN.PLUMBER MAINTENANCE - Fully Assessed Reason for Visit: Results [95] Cmt: CBC and iron levels Prescriptions as of 02/10/2022 - ascorbic acid, vitamin C, (VITAMIN C) 250 mg tablet Take 250 mg by mouth once daily. - cholecalciferol, vitamin D3, (VITAMIN D3 ORAL) Take 2,000 Units by mouth once daily. - potassium chloride 20 mEq TbER Take 2 tablets by mouth twice daily. - magnesium oxide (MAG-OX) 400 mg (241.3 mg magnesium) tablet Take 400 mg by mouth twice daily. - pantoprazole DR (PROTONIX) 40 mg tablet Take 40 mg by mouth once daily. - polyethylene glycol 3350 (MIRALAX) 17 gram packet Take 17 g by mouth once daily as needed. - senna (SENNA LAXATIVE) 8.6 mg tab Take 8.6 mg by mouth twice daily. - sodium chloride (SALINE MIST) 0.65 % nasal spray Use 1 [place] in the nose as needed. - diltiazem CR (TIAZAC, TAZTIA XT) 180 mg 24 hr capsule Take 180 mg by mouth once daily. - lubiprostone (AMITIZA) 24 mcg capsule Take 24 mcg by mouth twice daily with meals. - roflumilast (DALIRESP) 500 mcg tab Take 500 mcg by mouth once daily. - aspirin, enteric coated (ASPIRIN, ENTERIC COATED) 81 mg EC tablet Take 81 mg by mouth once daily. - metoprolol succinate ER (TOPROL XL) 25 mg 24 hr tablet Take 25 mg by mouth twice daily. - sitaGLIPtin (JANUVIA) 50 mg tablet Take 50 mg by mouth once daily. - pravastatin (PRAVACHOL) 20 mg tablet Take 20 mg by mouth once daily. - budesonide-formoter ol (SYMBICORT) 160-4.5 mcg/actuation inhaler Inhale 1 Puff as instructed twice daily. - PSYLLIUM HUSK, BULK, MISC One powder packet in 3-4 ounces of water every four hours as needed. - CALCIUM CARBONATE/VITAMIN D3 (CALCIUM 600 + D,3, ORAL) Take 1 tablet by mouth once daily. - Azelastine 0.15 % (205.5 mcg) spry Use 1-2 Sprays in each nostril twice daily. - Ranitidine HCl 300 mg tablet Take 300 mg by mouth once daily. - insulin detemir (LEVEMIR) 100 unit/mL injection Inject 46 Units subcutaneously twice daily. - Cod Liver Oil cap Take 1 capsule by mouth once daily. - insulin aspart (NOVOLOG) 100 unit/mL soln HOLD 10/10/13. Take 6 units with breakfast, 4 units with lunch, and 7 units with supper. - albuterol 2.5 mg /3 mL (0.083 %) INHALATION nebulizer solution Use 3 mL via nebulizer three times daily as needed. OVER 5-15 MINUTES. FOR WHEEZING AND SHORTNESS OF BREATH. - LISINOPRIL 40 MG TAB 1 pill twice daily Meds Comments as of 08/09/2014: 07/2014 - Patient unsure of medications Problem List As Of Date 02/10/2022 Noted Resolved SPINAL STENOSIS-LUMBAR [M48.061] 01/11/2002 BENIGN HYPERTENSION [I10] 06/09/2005 ALLERGIC RHINITIS NOS [J30.9] 06/09/2005 MALIGN NEOPL BREAST NOS, left [C50.919] 06/11/2005 CONSTIPATION NOS [K59.00] 07/31/2005 MALIG NEOPLASM BREAST LOW-INNER [C50.319] 09/11/2005 Type II or unspecified type diabetes mellitus w*01/27/2006 DIABETES TYPE II W EYE MANIF-UNCONTRLLD [E11.39*01/27/2006 Unspecified asthma(493.90) [J45.909] 03/04/2006 SEBACEOUS CYST [L72.3] 03/31/2006 CARPAL TUNNEL SYNDROME [G56.00] 07/13/2006 ABDOMINAL PAIN UNSPEC SITE [R10.9] STASIS DERMATITIS///VENOUS INSUFFICIENCY NOS [I*03/09/2007 LEG VARICOSITY W INFLAM [I83.10] 03/09/2007 DERMATITIS NOS [L25.9] 03/09/2007 XEROSIS///SEBACEOUS GLAND DIS NEC [L73.8] 03/09/2007 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] 04/20/2007 HYPOSMOLALITY [E87.1] 04/20/2007 UNSP ABNORMAL MAMMOGRAM [R92.8] 02/23/2008 HYPERLIPIDEMIA [E78.5] 05/04/2008 TOBACCO USE DISORDER [F17.200] 12/27/2008 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 PAD (peripheral artery disease) [I73.9] 05/28/2011 DM w/o complication type II [E11.9] 07/18/2011 PVD (peripheral vascular disease) [I73.9] 07/18/2011 Dermatophytosis of nail [B35.1] 07/18/2011 Pes planus [M21.40] 11/10/2012 Abnormal mammogram [R92.8] 01/22/2017 Anemia due to acute blood loss [D62] 01/10/2020 Iron deficiency anemia due to chronic blood los*02/06/2021 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] 02/06/2021 Encounter Status:Closed by STACIE VARNER LPN on 02/10/22 Normal [facility] CBC W Auto Differential pane l (Bld)on 02-03-2022 Basophils (Bld) [#/Vol] 0.04 10*3/uL Normal <0.11 [facility] Comment on above: Order Comment: Speci men Type: BLOOD SPECIMEN Ordering Facility: [facility] Address: [address] [place], [place] [address] Performed By: #### 5 7021-8 #### [facility] CLIA [id number] [address] [place] [address] [place] Basophils/100 WBC (Bld) 0.6 % Normal [facility] Comment on above: Order Comment: Speci men Type: BLOOD SPECIMEN Ordering Facility: [facility] Address: [address] [place] [address] Performed By: #### 5 7021-8 #### [facility] CLIA [id number] [address] [place] [address] [place] Differential cell count method Nom (Bld) Auto Normal [facility] Comment on above: Order Comment: Speci men Type: BLOOD SPECIMEN Ordering Facility: [facility] Address: [address] [place], [place] [address] Performed By: #### 5 7021-8 #### [facility] CLIA [id number] [address] [place] [address] [place] Eosinophils (Bld) [#/Vol] 0.23 10*3/uL Normal <0.46 [facility] Comment on above: Order Comment: Speci men Type: BLOOD SPECIMEN Ordering Facility: [facility] Address: [address] [place], [place] [address] Performed By: #### 5 7021-8 #### [facility] CLIA [id number] [address] [place] [address] [place] Eosinophils/100 WBC (Bld) 3.2 % Normal [facility] Comment on above: Order Comment: Speci men Type: BLOOD SPECIMEN Ordering Facility: [facility] Address: [address] [place], [place] [address] Performed By: #### 5 7021-8 #### [facility] CLIA [id number] [address] [place] [address] [place] Erythrocyte distribution width (RBC) [Ratio] 14.3 % Normal 11.5-15.0 [facility] Comment on above: Order Comment: Speci men Type: BLOOD SPECIMEN Ordering Facility: [facility] Address: [address] [place] [address] Performed By: #### 5 7021-8 #### [facility] CLIA [id number] [address] [place] [address] [place] Hematocrit (Bld) [Volume fraction] 39.7 % Normal 36.0-46.0 [facility] Comment on above: Order Comment: Speci men Type: BLOOD SPECIMEN Ordering Facility: [facility] Address: [address] [place] [address] Performed By: #### 5 7021-8 #### [id number] [address] [place] [address] [place] Hemoglobin (Bld) [Mass/Vol] 12.8 g/dL Normal 11.5-15.5 [facility] Comment on above: Order Comment: Speci men Type: BLOOD SPECIMEN Ordering Facility: [facility] Address: [address] [place] [address] Performed By: #### 5 7021-8 #### [facility] [id number] [address] [place] [address] [place] IMMATURE GRAN % 0.3 % Normal [facility] Comment on above: Order Comment: Speci men Type: BLOOD SPECIMEN Ordering Facility: [facility] Address: [address] [place] [address] Performed By: #### 5 7021-8 #### [facility] [id number] [address] [place] [address] [place] IMMATURE GRAN ABS <0.03 Normal <0.10 [facility] Comment on above: Order Comment: Speci men Type: BLOOD SPECIMEN Ordering Facility: [facility] Address: [address] [place] [address] Performed By: #### 5 7021-8 #### [facility] CLIA [id number] [address] [place] [address] [place] Lymphocytes (Bld) [#/Vol] 2.30 10*3/uL Normal 1.00-4.00 [facility] Comment on above: Order Comment: Speci men Type: BLOOD SPECIMEN Ordering Facility: [facility] Address: [address] [place] [address] Performed By: #### 5 7021-8 #### [facility] CLIA [id number] [address] [place] [address] [place] Lymphocytes/100 WBC (Bld) 32.1 % Normal [facility] Comment on above: Order Comment: Speci men Type: BLOOD SPECIMEN Ordering Facility: [facility] Address: [address] [place] [address] Performed By: #### 5 7021-8 #### [facility] CLIA [id number] [address] [place] [address] [place] MCH (RBC) [Entitic mass] 28.8 pg Normal 26.0-34.0 [facility] Comment on above: Order Comment: Speci men Type: BLOOD SPECIMEN Ordering Facility: [facility] Address: [address] [place] [address] Performed By: #### 5 7021-8 #### [facility] [id number] [address] [place] [address] [place] MCHC (RBC) [Mass/Vol] 32.2 g/dL Normal 30.5-36.0 [facility] Comment on above: Order Comment: Speci men Type: BLOOD SPECIMEN Ordering Facility: [facility] Address: [address] [place], [place] [address] Performed By: #### 5 7021-8 #### [facility] CLIA [id number] [address] [place] [address] [place] MCV (RBC) [Entitic vol] 89.4 fL Normal 80.0-100.0 [facility] Comment on above: Order Comment: Speci men Type: BLOOD SPECIMEN Ordering Facility: [facility] Address: [address] [place] [address] Performed By: #### 5 7021-8 #### [facility] CLIA [id number] [address] [place] [address] [place] Monocytes (Bld) [#/Vol] 0.47 10*3/uL Normal <0.87 [facility] Comment on above: Order Comment: Speci men Type: BLOOD SPECIMEN Ordering Facility: [facility] Address: [address] [place] [address] Performed By: #### 5 7021-8 #### [facility] CLIA [id number] [address] [place] [address] [place] Monocytes/100 WBC (Bld) 6.6 % Normal [facility] Comment on above: Order Comment: Speci men Type: BLOOD SPECIMEN Ordering Facility: [facility] Address: [address] [place], [place] [address] Performed By: #### 5 7021-8 #### [facility] CLIA [id number] [address] [place] [address] [place] Neutrophils (Bld) [#/Vol] 4.11 10*3/uL Normal 1.45-7.50 [facility] Comment on above: Order Comment: Speci men Type: BLOOD SPECIMEN Ordering Facility: [facility] Address: [address] [place] [address] Performed By: #### 5 7021-8 #### [facility] CLIA [id number] [address] [place] [address] [place] Neutrophils/100 WBC (Bld) 57.2 % Normal [facility] Comment on above: Order Comment: Speci men Type: BLOOD SPECIMEN Ordering Facility: [facility] Address: [address] [place] [address] Performed By: #### 5 7021-8 #### [facility] CLIA [id number] [address] [place] [address] [place] Nucleated RBC (Bld) [#/Vol] 10*3/uL Normal <0.01 [facility] Comment on above: Order Comment: Speci men Type: BLOOD SPECIMEN Ordering Facility: [facility] Address: [address] [place] [address] Performed By: #### 5 7021-8 #### [facility] [id number] [address] [place] [address] [place] Nucleated RBC/100 WBC (Bld) [Ratio] 0.0 /100 WBC Normal [facility] Comment on above: Order Comment: Speci men Type: BLOOD SPECIMEN Ordering Facility: [facility] Address: [address] [place] [address] Performed By: #### 5 7021-8 #### [facility] [id number] [address] [place] [address] [place] Platelet mean volume (Bld) [Entitic vol] 10.3 fL Normal 9.0-12.7 [facility] Comment on above: Order Comment: Speci men Type: BLOOD SPECIMEN Ordering Facility: [facility] Address: [address] [place] [address] Performed By: #### 5 7021-8 #### [facility] CLIA [id number] [address] [place] [address] [place] Platelets (Bld) [#/Vol] 265 10*3/uL Normal 150-400 [facility] Comment on above: Order Comment: Speci men Type: BLOOD SPECIMEN Ordering Facility: [facility] Address: [address] [place] [address] Performed By: #### 5 7021-8 #### [facility] CLIA [id number] [address] [place] [address] [place] RBC (Bld) [#/Vol] 4.44 10*6/uL Normal 3.90-5.20 [facility] Comment on above: Order Comment: Speci men Type: BLOOD SPECIMEN Ordering Facility: [facility] Address: [address] [place] [address] Performed By: #### 5 7021-8 #### [facility] CLIA [id number] [address] [place] [address] [place] WBC (Bld) [#/Vol] 7.17 10*3/uL Normal 3.70-11.00 [facility] Comment on above: Order Comment: Speci men Type: BLOOD SPECIMEN Ordering Facility: [facility] Address: [address] [place] [address] Performed By: #### 5 7021-8 #### [facility] CLIA [id number] [address] [place] [address] [place] FERRITIN BLDon 02-03-2022 Ferritin [Mass/Vol] 1132.0 ng/mL High 14.7-205.1 [facility] Comment on above: Order Comment: Speci men Type: BLOOD SPECIMEN Ordering Facility: [facility] Address: [address] [place] [address] Performed By: #### F ERR, IRON #### [facility] CLIA [id number] [address] [facility] [address] [id number] [address] [place] IRON + TIBCon 02-03-2022 Iron [Mass/Vol] 66 ug/dL Normal 41-186 [facility] Comment on above: Order Comment: Speci men Type: BLOOD SPECIMEN Ordering Facility: [facility] Address: [address] [place], [place] [address] Performed By: #### F ERR, IRON #### [facility] CLIA [id number] [address] [place] [address] [place] Iron binding capacity [Mass/Vol] 286 ug/dL Normal 232-386 [facility] Comment on above: Order Comment: Speci men Type: BLOOD SPECIMEN Ordering Facility: [facility] Address: [address] [place], [place] [address] Performed By: #### F ERR, IRON #### [facility] CLIA [id number] [address] [place] [address] [place] Iron/TIBC [Molar ratio] 23 % Normal 15-57 [facility] Comment on above: Order Comment: Speci men Type: BLOOD SPECIMEN Ordering Facility: [facility] Address: [address] [place], [place] [address] Performed By: #### F ERR, IRON #### [facility] CLIA [id number] [address] [place] [address] [place] CBC W Auto Differential pane l (Bld)on 11-04-2021 Basophils (Bld) [#/Vol] 0.05 10*3/uL Normal <0.11 [facility] Comment on above: Order Comment: Speci men Type: BLOOD SPECIMEN Ordering Facility: [facility] Address: [address] [place], [place] [address] Performed By: #### 5 7021-8 #### [facility] [id number] [address] [place] [address] [place] Basophils/100 WBC (Bld) 0.7 % Normal [facility] Comment on above: Order Comment: Speci men Type: BLOOD SPECIMEN Ordering Facility: [facility] Address: [address] [place], [place] [address] Performed By: #### 5 7021-8 #### [facility] CLIA [id number] [address] [place] [address] [place] Differential cell count method Nom (Bld) Auto Normal [facility] Comment on above: Order Comment: Speci men Type: BLOOD SPECIMEN Ordering Facility: [facility] Address: [address] [place] [address] Performed By: #### 5 7021-8 #### [facility] CLIA [id number] [address] [place] [address] [place] Eosinophils (Bld) [#/Vol] 0.34 10*3/uL Normal <0.46 [facility] Comment on above: Order Comment: Speci men Type: BLOOD SPECIMEN Ordering Facility: [facility] Address: [address] [place] [address] Performed By: #### 5 7021-8 #### [facility] CLIA [id number] [address] [place] [address] [place] Eosinophils/100 WBC (Bld) 4.9 % Normal [facility] Comment on above: Order Comment: Speci men Type: BLOOD SPECIMEN Ordering Facility: [facility] Address: [address] [place] [address] Performed By: #### 5 7021-8 #### [facility] CLIA [id number] [address] [place] [address] [place] Erythrocyte distribution width (RBC) [Ratio] 13.3 % Normal 11.5-15.0 [facility] Comment on above: Order Comment: Speci men Type: BLOOD SPECIMEN Ordering Facility: [facility] Address: [address] [place], [place] [address] Performed By: #### 5 7021-8 #### [facility] CLIA [id number] [address] [place] [address] [place] Hematocrit (Bld) [Volume fraction] 40.4 % Normal 36.0-46.0 [facility] Comment on above: Order Comment: Speci men Type: BLOOD SPECIMEN Ordering Facility: [facility] Address: [address] [place] [address] Performed By: #### 5 7021-8 #### [facility] CLIA [id number] [address] [place] [address] [place] Hemoglobin (Bld) [Mass/Vol] 12.9 g/dL Normal 11.5-15.5 [facility] Comment on above: Order Comment: Speci men Type: BLOOD SPECIMEN Ordering Facility: [facility] Address: [address] [place] [address] Performed By: #### 5 7021-8 #### [facility] [id number] [address] [place] [address] [place] IMMATURE GRAN % 0.1 % Normal [facility] Comment on above: Order Comment: Speci men Type: BLOOD SPECIMEN Ordering Facility: [facility] Address: [address] [place] [address] Performed By: #### 5 7021-8 #### [facility] [id number] [address] [place] [address] [place] IMMATURE GRAN ABS <0.03 Normal <0.10 [facility] Comment on above: Order Comment: Speci men Type: BLOOD SPECIMEN Ordering Facility: [facility] Address: [address] [place] [address] Performed By: #### 5 7021-8 #### [facility] [id number] [address] [place] [address] [place] Lymphocytes (Bld) [#/Vol] 2.70 10*3/uL Normal 1.00-4.00 [facility] Comment on above: Order Comment: Speci men Type: BLOOD SPECIMEN Ordering Facility: [facility] Address: [address] Performed By: #### 5 7021-8 #### [facility] CLIA [id number] [address] [place] [address] [place] [facility] Lymphocytes/100 WBC (Bld) 38.6 % Normal [facility] [facility] Comment on above: Order Comment: Speci men Type: BLOOD SPECIMEN Ordering Facility: [facility] Address: [address] [place], [place] [id number] Performed By: #### 5 7021-8 #### [facility] CLIA [id number] [address] [place] [address] [place] MCH (RBC) [Entitic mass] 28.9 pg Normal 26.0-34.0 [facility] Comment on above: Order Comment: Speci men Type: BLOOD SPECIMEN Ordering Facility: [facility] Address: [address] [place], [place] [id number] Performed By: #### 5 7021-8 #### [facility] CLIA [id number] [address] [place] [address] [place] MCHC (RBC) [Mass/Vol] 31.9 g/dL Normal 30.5-36.0 [facility] Comment on above: Order Comment: Speci men Type: BLOOD SPECIMEN Ordering Facility: [facility] Address: [address] [place], [place] [id number] Performed By: #### 5 7021-8 #### [facility] CLIA [id number] [address] [place] [address] [place] MCV (RBC) [Entitic vol] 90.4 fL Normal 80.0-100.0 [facility] Comment on above: Order Comment: Speci men Type: BLOOD SPECIMEN Ordering Facility: [facility] Address: [address] [place], [place] [id number] Performed By: #### 5 7021-8 #### [facility] CLIA [id number] [address] [place] [address] [place] Monocytes (Bld) [#/Vol] 0.49 10*3/uL Normal <0.87 [facility] Comment on above: Order Comment: Speci men Type: BLOOD SPECIMEN Ordering Facility: [facility] Address: [address] [place] [address] Performed By: #### 5 7021-8 #### [facility] CLIA [id number] [address] [place] [address] [place] Monocytes/100 WBC (Bld) 7.0 % Normal [facility] Comment on above: Order Comment: Speci men Type: BLOOD SPECIMEN Ordering Facility: [facility] Address: [address] [place] [address] Performed By: #### 5 7021-8 #### [facility] CLIA [id number] [address] [place] [address] [place] Neutrophils (Bld) [#/Vol] 3.40 10*3/uL Normal 1.45-7.50 [facility] Comment on above: Order Comment: Speci men Type: BLOOD SPECIMEN Ordering Facility: [facility] Address: [address] [place] [address] Performed By: #### 5 7021-8 #### [facility] CLIA [id number] [address] [place] [address] [place] Neutrophils/100 WBC (Bld) 48.7 % Normal [facility] Comment on above: Order Comment: Speci men Type: BLOOD SPECIMEN Ordering Facility: [facility] Address: [address] [place] [address] Performed By: #### 5 7021-8 #### [facility] CLIA [id number] [address] [place] [address] [place] Nucleated RBC (Bld) [#/Vol] 10*3/uL Normal <0.01 [facility] Comment on above: Order Comment: Speci men Type: BLOOD SPECIMEN Ordering Facility: [facility] Address: [address] [place], [place] [id number] Performed By: #### 5 7021-8 #### [facility] CLIA [id number] [address] [place] [address] [place] Nucleated RBC/100 WBC (Bld) [Ratio] 0.0 /100 WBC Normal [facility] Comment on above: Order Comment: Speci men Type: BLOOD SPECIMEN Ordering Facility: [facility] Address: [address] [place], [place] [id number] Performed By: #### 5 7021-8 #### [facility] CLIA [id number] [address] [place] [address] [place] Platelet mean volume (Bld) [Entitic vol] 10.1 fL Normal 9.0-12.7 [facility] Comment on above: Order Comment: Speci men Type: BLOOD SPECIMEN Ordering Facility: [facility] Address: [address] [place], [place] [id number] Performed By: #### 5 7021-8 #### [facility] CLIA [id number] [address] [place] [address] [place] Platelets (Bld) [#/Vol] 246 10*3/uL Normal 150-400 [facility] Comment on above: Order Comment: Speci men Type: BLOOD SPECIMEN Ordering Facility: [facility] Address: [address] [place], [place] [address] Performed By: #### 5 7021-8 #### [facility] CLIA [id number] [address] [place] [address] [place] RBC (Bld) [#/Vol] 4.47 10*6/uL Normal 3.90-5.20 [facility] Comment on above: Order Comment: Speci men Type: BLOOD SPECIMEN Ordering Facility: [facility] Address: [address] [place], [place] [address] Performed By: #### 5 7021-8 #### [facility] CLIA [id number] [address] [place] [address] [place] WBC (Bld) [#/Vol] 6.99 10*3/uL Normal 3.70-11.00 [facility] Comment on above: Order Comment: Speci men Type: BLOOD SPECIMEN Ordering Facility: [facility] Address: [address] [place], [place] [address] Performed By: #### 5 7021-8 #### [id number] [address] [place] [address] [place] FERRITIN BLDon 11-04-2021 Ferritin [Mass/Vol] 1428.0 ng/mL High 14.7-205.1 [facility] Comment on above: Order Comment: Speci men Type: BLOOD SPECIMEN Ordering Facility: [facility] Address: [address] [place], [place] [id number] Performed By: #### I VICTOR MANUEL, FERR #### [facility] CLIA [id number] [address] [place] [address] [place] IRON + TIBCon 11-04-2021 Iron [Mass/Vol] 60 ug/dL Normal 41-186 [facility] Comment on above: Order Comment: Speci men Type: BLOOD SPECIMEN Ordering Facility: [facility] Address: [address] [place], [place] [id number] Performed By: #### I VICTOR MANUEL, FERR #### [facility] CLIA [id number] [address] [place] [address] [place] Iron binding capacity [Mass/Vol] 242 ug/dL Normal 232-386 [facility] Comment on above: Order Comment: Speci men Type: BLOOD SPECIMEN Ordering Facility: [facility] Address: [address] [place], [place] [id number] Performed By: #### I VICTOR MANUEL, FERR #### [facility] CLIA [id number] [address] [place] [address] [place] Iron/TIBC [Molar ratio] 25 % Normal 15-57 [facility] Comment on above: Order Comment: Flip headley Type: BLOOD SPECIMEN Ordering Facility: [facility] Address: [address] [place] [address] Performed By: #### I EVELIA RUSH #### [facility] CLIA [id number] [address] [place] [address] [place] CNPNon 09-29-2021 CNPN Telephone (HEMRPEETHI) ---- OLGA DONALDSON ([id number]) 1945 F Date Time Provider Department 09/29/21 JOSEPH ROLLE During your visit today, we recorded the following information about you: Joseph Rolle DO 09/29/2021 8:54 AM Signed Can let her know I received lab results from Dr. Smiley's office from last fall. I'd like her to get 3 month follow labs here to reassess her history of anemia and need for parenteral iron. Orders filed. DO Jocelyn Suarez 09/30/2021 9:21 AM Signed PT ALREADY SCHEDULED FOR LABS IN EARLY OCTOBER DOES THIS NEED PUSHED BACK A MONTH OR OKAY TO LEAVE IT? Jocelyn Rolle DO 09/30/2021 12:13 PM Signed Okay to wait until October. Joseph Rolle DO Allergies As of Date: 09/29/2021 Noted Allergy Reaction KEFLEX (CEPHALEXIN) 07/02/2005 2 - Rash tape [Other] 07/30/2005 2 - Rash Comments: Nylon tape caused rash. Use paper tape. Also no dark brown bandaids. Spot bandaid ok. PLAVIX (CLOPIDOGREL BISULFATE) 08/04/2011 4 - Hives Date Reviewed: 05/07/2021 Reviewed by: Lily Iraheta APRN.PLUMBER MAINTENANCE - Fully Assessed Reason for Visit: Results [95] Follow Up [171] Primary Visit Diagnosis:Anemia, unspecified type [D64.9] Order(s):CBC + DIFF [SQCBCDIF] Order #: [id number] FUTURE COMP METABOLIC PANEL [SQCMP] Order #: [id number] FUTURE PROTEIN ELECTROPHORESIS SERUM W/INTERP [SQSEPG] Order #: [id number] FUTURE MONOCLONAL PROTEIN, SERUM (BLOOD) [SQSERMPA] Order #: [id number] FUTURE Prescriptions as of 04/12/2022 - ascorbic acid, vitamin C, (VITAMIN C) 250 mg tablet Take 250 mg by mouth once daily. - cholecalciferol, vitamin D3, (VITAMIN D3 ORAL) Take 2,000 Units by mouth once daily. - potassium chloride 20 mEq TbER Take 2 tablets by mouth twice daily. - magnesium oxide (MAG-OX) 400 mg (241.3 mg magnesium) tablet Take 400 mg by mouth twice daily. - pantoprazole DR (PROTONIX) 40 mg tablet Take 40 mg by mouth once daily. - polyethylene glycol 3350 (MIRALAX) 17 gram packet Take 17 g by mouth once daily as needed. - senna (SENNA LAXATIVE) 8.6 mg tab Take 8.6 mg by mouth twice daily. - sodium chloride (SALINE MIST) 0.65 % nasal spray Use 1 Minden in the nose as needed. - diltiazem CR (TIAZAC, TAZTIA XT) 180 mg 24 hr capsule Take 180 mg by mouth once daily. - lubiprostone (AMITIZA) 24 mcg capsule Take 24 mcg by mouth twice daily with meals. - roflumilast (DALIRESP) 500 mcg tab Take 500 mcg by mouth once daily. - aspirin, enteric coated (ASPIRIN, ENTERIC COATED) 81 mg EC tablet Take 81 mg by mouth once daily. - metoprolol succinate ER (TOPROL XL) 25 mg 24 hr tablet Take 25 mg by mouth twice daily. - sitaGLIPtin (JANUVIA) 50 mg tablet Take 50 mg by mouth once daily. - pravastatin (PRAVACHOL) 20 mg tablet Take 20 mg by mouth once daily. - budesonide-formoter ol (SYMBICORT) 160-4.5 mcg/actuation inhaler Inhale 1 Puff as instructed twice daily. - PSYLLIUM HUSK, BULK, MISC One powder packet in 3-4 ounces of water every four hours as needed. - CALCIUM CARBONATE/VITAMIN D3 (CALCIUM 600 + D,3, ORAL) Take 1 tablet by mouth once daily. - Azelastine 0.15 % (205.5 mcg) spry Use 1-2 Sprays in each nostril twice daily. - Ranitidine HCl 300 mg tablet Take 300 mg by mouth once daily. - insulin detemir (LEVEMIR) 100 unit/mL injection Inject 46 Units subcutaneously twice daily. - Cod Liver Oil cap Take 1 capsule by mouth once daily. - insulin aspart (NOVOLOG) 100 unit/mL soln HOLD 10/10/13. Take 6 units with breakfast, 4 units with lunch, and 7 units with supper. - albuterol 2.5 mg /3 mL (0.083 %) INHALATION nebulizer solution Use 3 mL via nebulizer three times daily as needed. OVER 5-15 MINUTES. FOR WHEEZING AND SHORTNESS OF BREATH. 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*01/27/2006 Unspecified asthma(493.90) [J45.909] 03/04/2006 SEBACEOUS CYST [L72.3] 03/31/2006 CARPAL TUNNEL SYNDROME [G56.00] 07/13/2006 ABDOMINAL PAIN UNSPEC SITE [R10.9] STASIS DERMATITIS///VENOUS INSUFFICIENCY NOS [I*03/09/2007 LEG VARICOSITY W INFLAM [I83.10] 03/09/2007 DERMATITIS NOS [L25.9] 03/09/2007 XEROSIS///SEBACEOUS GLAND DIS NEC [L73.8] 03/09/2007 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 Normal [facility] Justine 05-09-2021 MAR[place] Telephone (EVELYN) ---- OLGA DONALDSON ([id number]) 1945 F Date Time Provider Department 05/09/21 LILY IRAHETA During your visit today, we recorded the following information about you: Lily Iraheta APRN.CNP 05/09/2021 9:20 AM Signed Please inform pt. that her labs look good. Follow up as scheduled. Thank you. Lily Iraheta APRN.MARLI Abernathy 05/09/2021 9:22 AM Signed Pt aware of results. Jocelyn Abernathy Allergies As of Date: 05/09/2021 Noted Allergy Reaction KEFLEX (CEPHALEXIN) 07/02/2005 2 - Rash tape [Other] 07/30/2005 2 - Rash Comments: Nylon tape caused rash. Use paper tape. Also no dark brown bandaids. Spot bandaid ok. PLAVIX (CLOPIDOGREL BISULFATE) 08/04/2011 4 - Hives Date Reviewed: 05/07/2021 Reviewed by: Lily Iraheta APRN.CNP - Fully Assessed Reason for Visit: Results [95] Prescriptions as of 05/09/2021 - ascorbic acid, vitamin C, (VITAMIN C) 250 mg tablet Take 250 mg by mouth once daily. - cholecalciferol, vitamin D3, (VITAMIN D3 ORAL) Take 2,000 Units by mouth once daily. - potassium chloride 20 mEq TbER Take 2 tablets by mouth twice daily. - magnesium oxide (MAG-OX) 400 mg (241.3 mg magnesium) tablet Take 400 mg by mouth twice daily. - pantoprazole DR (PROTONIX) 40 mg tablet Take 40 mg by mouth once daily. - polyethylene glycol 3350 (MIRALAX) 17 gram packet Take 17 g by mouth once daily as needed. - senna (SENNA LAXATIVE) 8.6 mg tab Take 8.6 mg by mouth twice daily. - sodium chloride (SALINE MIST) 0.65 % nasal spray Use 1 Mind[place] in the nose as needed. - diltiazem CR (TIAZAC, TAZTIA XT) 180 mg 24 hr capsule Take 180 mg by mouth once daily. - lubiprostone (AMITIZA) 24 mcg capsule Take 24 mcg by mouth twice daily with meals. - roflumilast (DALIRESP) 500 mcg tab Take 500 mcg by mouth once daily. - aspirin, enteric coated (ASPIRIN, ENTERIC COATED) 81 mg EC tablet Take 81 mg by mouth once daily. - metoprolol succinate ER (TOPROL XL) 25 mg 24 hr tablet Take 25 mg by mouth twice daily. - sitaGLIPtin (JANUVIA) 50 mg tablet Take 50 mg by mouth once daily. - pravastatin (PRAVACHOL) 20 mg tablet Take 20 mg by mouth once daily. - budesonide-formoter ol (SYMBICORT) 160-4.5 mcg/actuation inhaler Inhale 1 Puff as instructed twice daily. - PSYLLIUM HUSK, BULK, MISC One powder packet in 3-4 ounces of water every four hours as needed. - CALCIUM CARBONATE/VITAMIN D3 (CALCIUM 600 + D,3, ORAL) Take 1 tablet by mouth once daily. - Azelastine 0.15 % (205.5 mcg) spry Use 1-2 Sprays in each nostril twice daily. - Ranitidine HCl 300 mg tablet Take 300 mg by mouth once daily. - insulin detemir (LEVEMIR) 100 unit/mL injection Inject 46 Units subcutaneously twice daily. - Cod Liver Oil cap Take 1 capsule by mouth once daily. - insulin aspart (NOVOLOG) 100 unit/mL soln HOLD 10/10/13. Take 6 units with breakfast, 4 units with lunch, and 7 units with supper. - albuterol 2.5 mg /3 mL (0.083 %) INHALATION nebulizer solution Use 3 mL via nebulizer three times daily as needed. OVER 5-15 MINUTES. FOR WHEEZING AND SHORTNESS OF BREATH. - LISINOPRIL 40 MG TAB 1 pill twice daily Meds Comments as of 08/09/2014: 07/2014 - Patient unsure of medications Problem List As Of Date 05/09/2021 Noted Resolved SPINAL STENOSIS-LUMBAR [M48.061] 01/11/2002 BENIGN HYPERTENSION [I10] 06/09/2005 ALLERGIC RHINITIS NOS [J30.9] 06/09/2005 MALIGN NEOPL BREAST NOS, left [C50.919] 06/11/2005 CONSTIPATION NOS [K59.00] 07/31/2005 MALIG NEOPLASM BREAST LOW-INNER [C50.319] 09/11/2005 Type II or unspecified type diabetes mellitus w*01/27/2006 DIABETES TYPE II W EYE MANIF-UNCONTRLLD [E11.39*01/27/2006 Unspecified asthma(493.90) [J45.909] 03/04/2006 SEBACEOUS CYST [L72.3] 03/31/2006 CARPAL TUNNEL SYNDROME [G56.00] 07/13/2006 ABDOMINAL PAIN UNSPEC SITE [R10.9] STASIS DERMATITIS///VENOUS INSUFFICIENCY NOS [I*03/09/2007 LEG VARICOSITY W INFLAM [I83.10] 03/09/2007 DERMATITIS NOS [L25.9] 03/09/2007 XEROSIS///SEBACEOUS GLAND DIS NEC [L73.8] 03/09/2007 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] 04/20/2007 HYPOSMOLALITY [E87.1] 04/20/2007 UNSP ABNORMAL MAMMOGRAM [R92.8] 02/23/2008 HYPERLIPIDEMIA [E78.5] 05/04/2008 TOBACCO USE DISORDER [F17.200] 12/27/2008 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 PAD (peripheral artery disease) [I73.9] 05/28/2011 DM w/o complication type II [E11.9] 07/18/2011 PVD (peripheral vascular disease) [I73.9] 07/18/2011 Dermatophytosis of nail [B35.1] 07/18/2011 Pes planus [M21.40] 11/10/2012 Abnormal mammogram [R92.8] 01/22/2017 Anemia due to acute blood loss [D62] 01/10/2020 Iron deficiency anemia due to chronic blood los*02/06/2021 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] 02/06/2021 Encounter Status:Closed by STACIE VARNER LPN on 05/09/21 Normal [facility] - Specimen inform ationon 03-27-2021 Specimen source Nom (Unsp spec) Stool [facility] No Panel Informationon 03-27 Occult Blood Diagnostic Positive Abnormal [facility] FERRITIN BLDon 03-22-2021 Ferritin [Mass/Vol] 1064.0 ng/mL High 14.7 - 2 05.1 ng/mL [facility] CULTURE FUNGUSon 02-08-2018 CULTURE FUNGUS 1 Organism Nithya albicans Many Normal [facility] Comment on above: Performed By: #### C /FUN, S/FUN ####[facility] [employer] [id number] [place] [address] STAIN FUNGUSon 01-19-2018 STAIN FUNGUS STAIN FUNGUS --> Status: F 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 Direct exam by Calcofluor stain. Direct exam by Calcofluor stain. Normal [facility] Comment on above: Performed By: #### C /FUN, S/FUN ####[facility] [employer] [id number] [place] [address] Office Visit: Consult- Romero mina 01-13-2017 Adolescent depression screening assessment Adolescent depression screening assessment Invalid Interpretation Code [facility] Work Phone: [phone] Adult depression screening assessment Adolescent depression screening assessment [facility] Work Phone: [phone] Documentation of current medications (procedure) Done Invalid Interpretation Code [facility] Work Phone: [phone] Fall risk assessment Fall risk assessment [facility] Work Phone: [phone] Tobacco smoking status NHIS Never [facility] Work Phone: [phone] Tobacco smoking status NHIS Former smoker [facility] Work Phone: [phone] Tobacco use HS Former smoker Invalid Interpretation Code [facility] Work Phone: [phone] Clinical Lists Update: 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 04-11-2016 Left ventricular Ejection fraction 70 % [facility] Work Phone: [phone] Office Visiton 08-29-2015 cardiac risk group [facility] Work Phone: [phone] General cardiovascular disease 10Y risk [#] Georgina.Mirza'Frances Not enough information [facility] Work Phone: [phone] Replaced Document: Midmark E CG Observationson 08-29-2015 EKG QRS axis 29 deg [facility] Work Phone: [phone] electrocardiogram interpretation Sinus Tachycardia -With rate variation cv = 10.WITHIN NORMAL LIMITS Invalid Interpretation Code [facility] Work Phone: [phone] GE use only - for Link[employer]ic import when terms are not otherwise specified 411 ms Invalid Interpretation Code [facility] Work Phone: [phone] Interpretation Sinus Tachycardia -With rate variation cv = 10.WITHIN NORMAL LIMITS [facility] Work Phone: [phone] P Assumption 41 deg [facility] Work Phone: [phone] P wave axis, electrocardiogram 41 deg Invalid Interpretation Code [facility] Work Phone: [phone] FL Interval 134 ms [facility] Work Phone: [phone] FL interval, electrocardiogram 134 ms Invalid Interpretation Code [facility] Work Phone: [phone] Pulse (Heart Rate) 109 /min Invalid Interpretation Code [facility] Work Phone: [phone] QRS axis, electrocardiogram 29 deg Invalid Interpretation Code [facility] Work Phone: [phone] QRS Duration 80 ms [facility] Work Phone: [phone] QRS duration, electrocardiogram 80 ms Invalid Interpretation Code [facility] Work Phone: [phone] QT Interval new path ms [facility] Work Phone: [phone] QT interval, electrocardiogram new path ms Invalid Interpretation Code [facility] Work Phone: [phone] QTc Carney 411 ms [facility] Work Phone: [phone] T Assumption 37 deg [facility] Work Phone: [phone] T wave axis, electrocardiogram 37 deg Invalid Interpretation Code [facility] Work Phone: [phone] Vital Signs Date Time Vital Sign Value Performing Clinician Luis rocha 05-07-2022 13:26-0400 Body height 158.1 cm Hubbard Iraheta LOG INSPECTOR.PLUMBER MAINTENANCE Work Phone: [facility] 05-07-2022 13:26-0400 Body temperature 97.2 [degF] Lily Iraheta LOG INSPECTOR.PLUMBER MAINTENANCE Work Phone: [facility] 05-07-2022 13:26-0400 Body weight 73.71 kg Hubbard Iraheta LOG INSPECTOR.PLUMBER MAINTENANCE Work Phone: [facility] 05-07-2022 13:26-0400 Diastolic blood pressure 68 mm[Hg] Hubbard Iraheta LOG INSPECTOR.PLUMBER MAINTENANCE Work Phone: [facility] 05-07-2022 13:26-0400 Heart rate 66 /min Hubbard Iraheta LOG INSPECTOR.PLUMBER MAINTENANCE Work Phone: [facility] 05-07-2022 13:26-0400 Systolic blood pressure 160 mm[Hg] Hubbard Iraheta LOG INSPECTOR.PLUMBER MAINTENANCE Work Phone: [facility] 01-13-2017 14:21-0400 BMI (Body Mass Index) 30.93 kg/m2 [facility] Work Phone: 01-13-2017 14:21-0400 Body Temperature 98.2 [degF] [facility] Work Phone: 01-13-2017 14:21-0400 Body weight 79.2 kg [facility] Work Phone: 01-13-2017 14:21-0400 BP Diastolic 76 mm[Hg] [facility] Work Phone: 01-13-2017 14:21-0400 BP Systolic 128 mm[Hg] [facility] Work Phone: 01-13-2017 14:21-0400 Height 160.02 cm Zuleika Heaton [facility] Work Phone: 01-13-2017 14:21-0400 Pulse (Heart Rate) 70 /min [facility] Work Phone: 01-13-2017 14:21-0400 Pulse Oximetry 96 % Zuleika Heaton [facility] Work Phone: 01-13-2017 14:21-0400 Respiratory [...] Provider Facility Start: 05-07-2022 End: 05-07-2022 ambulatory Lily Iraheta APRN.PLUMBER MAINTENANCE Work Phone: Hematology/Oncology Comment on above: Iron deficiency anem ia due to chronic blood loss (Primary Dx) Start: 05-07-2022 End: 05-07-2022 Patient encounter procedure Lily Iraheta LOG INSPECTOR.PLUMBER MAINTENANCE Work Phone: [facility] Start: 02-10-2022 Telephone encounter Joseph sanders DO Work Phone: Hematology/Oncology Comment on above: Results (CBC and iro n levels) Start: 01-31-2022 Orders Only Joseph Lim Work Phone: Hematology/Oncology Comment on above: Iron deficiency anem ia due to chronic blood loss (Primary Dx) Start: 09-29-2021 Telephone encounter Joseph sanders DO Work Phone: Hematology/Oncology Comment on above: Results; Follow Up Start: 03-14-2021 Telephone encounter Joseph sanders DO Work Phone: Hematology/Oncology Comment on above: Results Start: 01-18-2018 Ambulatory [facility] Procedures Date Procedure Procedure Detail Performing Clinician Start: 01-13-2017 End: 01-13-2017 Documentation of current medications Zuleika Ellisvaishali Start: 10-09-2015 End: 04-02-2016 Follow Up Appt 6 months Connor Rausch Start: 10-09-2015 End: 04-02-2016 BRODIE Good MD Start: 08-29-2015 End: 08-29-2015 DEHAIRER Se Good MD Start: 08-29-2015 End: 08-29-2015 Electrocardiogram, complete Se Lara i, MD Start: 08-29-2015 End: 08-29-2015 Follow Up Appt 6 weeks Se Good MD Plan of Treatment Date Care Activity Detail Author Start: 05-07-2022 BP CONTROLLED (<130/80) BP CONTROLLE D (<130/80) [facility] Start: 05-01-2022 Influenza vaccination C [facility] Start: 03-28-2022 COVID-19 VACCINE (4 - Booster for Moderna series) COVID-19 VACCINE (4 - Booster for Moderna series) [facility] Start: 09-29-2021 End: 09-29-2022 MONOCLONAL PROTEIN, SERUM (BLOOD) MONOCLONAL PROTEIN, SERUM (BLOOD) Lab Routine Anemia, unspecified type Expected: 09/29/2021, Expires: 09/29/2022 [facility] Work Phone: Comment on above: Expected: 09/29/2021 , Expires: 09/29/2022 Start: 09-29-2021 End: 09-29-2022 PROTEIN ELECTROPHORESIS SERUM W/INTERP PROTEIN ELECTROPHORESIS SERUM W/INTERP Lab Routine Anemia, unspecified type Expected: 09/29/2021, Expires: 09/29/2022 [facility] Work Phone: Comment on above: Expected: 09/29/2021 , Expires: 09/29/2022 Start: 08-31-2021 ADVANCE DIRECTIVE DISCUSSION ADVANCE DIRECTIVE DISCUSSION [facility] Start: 05-16-2021 COVID-19 VACCINE (3 - Booster for Moderna series) COVID-19 VACCINE (3 - Booster for Moderna series) [facility] Start: 05-04-2018 Urine microalbumin profile DTAP,TDAP,TD (2 - Td or Tdap) [facility] Start: 08-16-2016 3 comp foot exam completed DIABETIC FOOT EXAM [facility] Start: 10-09-2015 End: 04-02-2016 Follow Up Appt 6 months Follow Up Appt 6 months [facility] Work Phone: Start: 10-09-2015 End: 04-02-2016 MMM MMM [facility] Work Phone: Start: 08-29-2015 End: 08-29-2015 DEHAIRER DEHAIRER [facility] Work Phone: Start: 08-29-2015 End: 08-29-2015 Electrocardiogram, complete EKG (In office) [facility] Work Phone: Start: 08-29-2015 End: 08-29-2015 Follow Up Appt 6 weeks Follow Up Appt 6 weeks [facility] Work Phone: Start: 07-01-2014 Hemoglobin A1c/Hemoglobin.total in Blood HBA1C [facility] Start: 06-25-2014 Hepatitis B surface antibody level LDL CHOLESTEROL [facility] Start: 06-17-2014 Hepatitis C antibody , confirmatory test DILATED RETINAL EXAM [facility] Start: 02-12-2013 PNEUMOCOCCAL: 65+ (2 - PCV) PNEUMOCOCCAL: 65+ (2 - PCV) [facility] Start: 02-12-2013 PNEUMOCOCCAL: 65+ (3 - PCV) PNEUMOCOCCAL: 65+ (3 - PCV) [facility] Start: 02-18-2012 SHINGRIX VACCINE (1 of 2) MORENO GRIX VACCINE (1 of 2) [facility] Start: 02-18-2012 SHINGRIX VACCINE (2 of 3) MORENO GRIX VACCINE (2 of 3) [facility] Start: 01-02-1962 ANNUAL PCP TEAM STAFF TRAINING AND DEVELOPMENT MANAGER ERIS DISEASE VISIT ANNUAL PCP TEAM CHRONIC DISEASE VISIT [facility] Start: 01-02-1962 BP CONTROLLED (<130/80) BP CONTROLLE D (<130/80) [facility] Start: 01-02-1962 HEPATITIS C SCREENING HEPATITIS C SC REENING [facility] Start: 1957 Adult depression screening assessment DEPRESSION SCREENING [facility] End: 01-31-2023 CBC W Auto Differential panel - Blood CBC + DIFF Lab STAT Iron deficiency anemia due to chronic blood loss Every 3 months for 4 Occurrences starting 01/31/2022 until 01/31/2023 [facility] Work Phone: Comment on above: Every 3 months for 4 Occurrences starting 01/31/2022 until 01/31/2023 End: 09-29-2022 CBC W Auto Differential panel - Blood CBC + DIFF Lab Routine Anemia, unspecified type 1 Occurrences starting 09/29/2021 until 09/29/2022 [facility] Work Phone: Comment on above: 1 Occurrences starti ng 09/29/2021 until 09/29/2022 End: 09-29-2022 Comprehensive metabolic 2000 panel - Serum or Plasma COMP METABOLIC PANEL Lab Routine Anemia, unspecified type 1 Occurrences starting 09/29/2021 until 09/29/2022 [facility] Work Phone: Comment on above: 1 Occurrences starti ng 09/29/2021 until 09/29/2022 End: 01-31-2023 FERRITIN BLD FERRITIN BLD Lab Routine Iron deficiency anemia due to chronic blood loss Every 3 months for 4 Occurrences starting 01/31/2022 until 01/31/2023 [facility] Work Phone: Comment on above: Every 3 months for 4 Occurrences starting 01/31/2022 until 01/31/2023 End: 01-31-2023 IRON + TIBC IRON + TIBC Lab Routine Iron deficiency anemia due to chronic blood loss Every 3 months for 4 Occurrences starting 01/31/2022 until 01/31/2023 [facility] Work Phone: Comment on above: Every 3 months for 4 Occurrences starting 01/31/2022 until 01/31/2023 [facility] Immunizations Immunization Date Immunization Notes Care Provider Larissa cuadra 07-12-2012 influenza virus vacc ine, unspecified formulation Joseph Rolle DO Work Phone: [facility] 02-13-2012 pneumococcal polysaccharide vaccine, 23 valent Joseph Rolle DO Work Phone: [facility] 12-24-2011 zoster vaccine, live Joseph chatterjee DO Work Phone: [facility] 06-02-2011 influenza virus vacc ine, unspecified formulation Joseph Rolle DO Work Phone: [facility] 08-09-2010 influenza virus vacc ine, unspecified formulation Joseph Rolle DO Work Phone: [facility] 05-30-2009 influenza virus vacc ine, unspecified formulation Joseph Rolle DO Work Phone: [facility] 09-07-2008 influenza virus vacc ine, unspecified formulation Joseph Rolle DO Work Phone: [facility] Work Phone: 05-04-2008 tetanus toxoid, redu octavio diphtheria toxoid, and acellular pertussis vaccine, adsorbed Joseph Rolle DO Work Phone: [facility] Work Phone: 06-28-2007 influenza virus vacc ine, unspecified formulation Joseph Rolle DO Work Phone: [facility] Work Phone: 08-31-2005 pneumococcal polysaccharide vaccine, 23 valent Joseph Rolle DO Work Phone: [facility] Work Phone: Payers Date Payer Category Payer Medicare HU[employer] MEDICARE HU[employer]NA MEDICARE PPO [id number] 2017-Present [phone] [address] [address] [place] [address] PPO [id number] 2017 Medicare HUMANA MEDICARE HU[employer]NA MEDICARE PPO [id number] 2017-Present [phone] [address] [address] [place] [id number] PPO [id number] Private Health Insurance Social History Date Type Detail Facility Start: 02-03-2012 End: 03-22-2012 Tobacco smoking status NHIS Ex-smoker [facility] End: 01-30-2012 History of tobacco use Current smoker [facility] End: 01-30-2012 History of tobacco use Cigarette Smoker [facility] Start: 02-03-2012 End: 03-22-2012 Cigarettes smoked current (pack per day) - Reported 0.5 [facility] Start: 02-03-2012 End: 03-22-2012 Tobacco use and exposure Smokeless tobacco non-user [facility] Start: 05-07-2021 End: 05-07-2022 Alcohol intake Current non-drinker of alcohol (finding) [facility] Start: 1945 Sex Assigned At Not on file [facility] Start: 10-05-2021 End: 11-04-2021 Exposure to SARS-CoV-2 (event) Not sure [facility] Progress note 05-07-2022 Note Date & Type Note Facility 05-07-2022 Note HNO ID: [id number] Author: Lily Iraheta APRN.[employer] Service: ? Author Type: Nurse Practitioner Type: [...] an every 2-week basis for 4 cycles ([id number]). Completed a year of trastuzumab 06/16/06. Referred back or anemia. Admitted to [facility] 12/02/2019 for chest pain with ambulation. [...] 1.00 - 4.00 k/uL 2.70 2.30 2.03 Bergen% % 7.0 6.6 6.9 Abs Bergen <0.87 k/uL 0.49 0.47 0.47 Eosin% % [...] 280.0, (more content not included)... [facility] History of Present illness Narrative 05-07-2022 Lily Iraheta APRN.[facility] - 05/07/2022 1:33 PM EDT Note Date [...] an every 2-week basis for 4 cycles ([id number]). Completed a year of trastuzumab 06/16/06. Referred back or anemia. Admitted to [facility] 12/02/2019 for chest pain with ambulation. [...] 1.00 - 4.00 k/uL 2.70 2.30 2.03 Bergen% % 7.0 6.6 6.9 Abs Bergen <0.87 k/uL 0.49 0.47 0.47 Eosin% % [...] and edited as necessary for today's visit. Lily Iraheta APRN.[employer] documented in this encounter [facility] Note 02-10-2022 Telephone Encounter - Stacie Varner LPN - 02/10/2022 8:33 AM EDTTelephone Encounter - Joseph Rolle DO - 02/10/2022 6:20 AM EDT Note Date & Type Note Facility 02-10-2022 Miscellaneous Notes Pt called and notified, pt voices understanding. Stacie Varner LPN Can let her know CBC and iron levels doing well. Follow up as scheduled. Joseph Rolle DO documented in this encounter [facility] Note 09-30-2021 Telephone Encounter - Joseph Rolle [...] Joseph Rolle DO documented in this encounter [facility] Note 03-14-2021 Telephone Encounter - Marina Mathis [...] well. Please make a referral to Dr. Michael Carmen for the colonoscopy. Joseph Rolle DO Scheduled. Marina Mathis Patient has not had another colonoscopy since 2016, insurance would not approve. Patient is aware of all information. PSR's- please schedule a lab appointment for 03/21/2021 @ 2:30, no need to notify pt. Patient does not drive and will complete lab work and picking tech stool cards 03/21/2021, same day as iron [...] may have had one more recently at [facility]). Add on for 5 more doses of iron sucrose and repeat CBC/Iron studies about a month after completing. Joseph Rolle DO documented in this encounter [facility] Evaluation note Note Date & Type Note Facility Evaluation note Diagnosis Iron deficiency anemia due to chronic blood loss- Primary Iron deficiency anemia secondary to blood loss (chronic) documented in this encounter [facility] Evaluation note Note Date & Type Note Facility Evaluation note Diagnosis Iron deficiency anemia due to chronic blood loss- Primary Iron deficiency anemia secondary to blood loss (chronic) documented in this encounter [facility] Evaluation note Note Date & Type Note Facility Evaluation note Diagnosis Anemia, unspecified type- Primary documented in this encounter [facility] Evaluation note Note Date & Type Note Facility Evaluation note Diagnosis Iron deficiency anemia due to chronic blood loss- Primary Iron deficiency anemia secondary to blood loss (chronic) documented in this encounter [facility] Summary Purpose Family History No Family History Records FoundNo Family History Records Found Advance Directives No Advanced Directives Records FoundDocuments on File Type Date Recorded Patient 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 Advance Directive(s) 05/12/2016 10:06 AM Advance Directive(s) 04/30/2016 11:10 AM Advance Directive(s) 02/19/2016 5:55 AM Advance Directive(s) 02/14/2016 3:07 PM Additional Source Comments INFORMATION SOURCE (unrecogn ized section and content) DATE CREATED AUTHOR 02/25/2018 [facility] DATE CREATED AUTHOR AUTHOR'S GILLES ATION 05/08/2022 [facility] Source Comments (unrecognize d section and content) In the event this informatio n is protected by the Federal Confidentiality of Alcohol and Drug Abuse Patient Records regulations: The Federal rules restrict any use of the information to criminally investigate or prosecute any alcohol or drug abuse patient.[facility] the event this information is protected by the Federal Confidentiality of Alcohol and Drug Abuse Patient Records regulations: The Federal rules restrict any use of the information to criminally investigate or prosecute any alcohol or drug abuse patient.[facility] the event this information is protected by the Federal Confidentiality of Alcohol and Drug Abuse Patient Records regulations: The Federal rules restrict any use of the information to criminally investigate or prosecute any alcohol or drug abuse patient.[facility] the event this information is protected by the Federal Confidentiality of Alcohol and Drug Abuse Patient Records regulations: The Federal rules restrict any use of the information to criminally investigate or prosecute any alcohol or drug abuse patient.[facility] the event this information is protected by the Federal Confidentiality of Alcohol and Drug Abuse Patient Records regulations: The Federal rules restrict any use of the information to criminally investigate or prosecute any alcohol or drug abuse patient.[facility] Care Teams (unrecognized sec tion and content) Filter Tip Inspector Relationship Specialty Start Date End Date Ramone Smiley MD PCP - General Family Practice 08/16/15 Filter Tip Inspector Relationship Specialty Start Date End Date Ramone Smiley MD PCP - General Family Practice 08/16/15 Filter Tip Inspector Relationship Specialty Start Date End Date Ramone Smiley MD PCP - General Family Practice 08/16/15 Filter Tip Inspector Relationship Specialty Start Date End Date Ramone Smiley MD PCP - General Family Practice 08/16/15 Filter Tip Inspector Relationship Specialty Start Date End Date Ramone Smiley MD PCP - General Family Practice 08/16/15 Reason for Visit (unrecogniz ed section and content) Reason Comments Results CBC and iron levels Reason Comments Results Reason Comments Results Follow [...] BE BASED ON THE PRIMARY CLINICAL RECORDS. [facility] [employer] [facility]. provides no warranty or guarantee of the accuracy or completeness of information in this document.
[2024-06-19 22:36] LABS: Anion Gap 6 (5-15); BUN 10 mg/dL (7-18); BUN/Creat Ratio 9.3 RATIO (10-20); Chloride 104 mmol/L (98-107); Creatinine, Serum 1.08 mg/dL (0.55-1.02); EST Glomerular Filtration Rate 52 mL/min (>60); Est Glom Filt Rate - Afr Amer 63 mL/min (>60); Glucose 263 mg/dL (74-106); Potassium 4.4 mmol/L (3.5-5.1); Sodium Level 137 mmol/L (136-145)
[2024-06-19 22:45] LABS: BNP,B-Type NATRIURETIC PEPTIDE 81.6 pg/mL (0-100)
[2024-06-20] VITALS: BP 130/89; PULSE 78; RESP 26; TEMP 36.7; O2SAT 93
[2024-06-20] MEDS: predniSONE 20 MG Tablet 60 MG PO (00:28)
[2024-06-20 00:37] VITALS: BP 124/72; PULSE 76; RESP 24; TEMP 36.7; O2SAT 93
== END 2024-06-20 00:38 | disposition home or self-care (01) ==
PROVIDERS: Emergency Provider Emergency Medicine; PCP Family Medicine; Referring Provider Emergency Medicine; Visit Provider Emergency Medicine
DX: J44.1 Chronic obstructive pulmonary disease with (acute) exacerbation (principal); E11.22 Type 2 diabetes mellitus with diabetic chronic kidney disease; N18.30 Chronic kidney disease, stage 3 unspecified; Z87.891 Personal history of nicotine dependence; I12.9 Hypertensive chronic kidney disease with stage 1 through stage 4 chronic kidney disease, or unspecified chronic kidney disease; E78.5 Hyperlipidemia, unspecified; I25.10 Atherosclerotic heart disease of native coronary artery without angina pectoris; R06.02 Shortness of breath; K21.9 Gastro-esophageal reflux disease without esophagitis
CPT/HCPCS: 36415; 71045; 80048; 83880; 85025; 93005; 94640; 99285

== ENCOUNTER → 2024-07-19 | Outpatient (CLI) | payer MEDICARE, SELFPAY ==
--- NOTE | 2024-07-19 13:44 | US_ITS ---
STUDY: RENAL ULTRASOUND - COMPLETE REASON FOR EXAM: Female, 79 years old. UTI TECHNIQUE: Ultrasound evaluation of the kidneys was performed with real-time and static mosqueda-scale imaging. COMPARISON: Comparison is made with prior study March 24, 2023. FINDINGS: RIGHT KIDNEY: Normal location of the right kidney, which is normal in size. The right kidney measures 10.1 cm x 5.8 cm x 3.8 cm. There is a normal cortex of the right kidney. The renal cortex measures 1.3 cm. There is a 1.2 cm x 1.1 cm x 0.8 cm cyst in the lateral mid pole. There are no right renal calculi. There is no right hydronephrosis. DISTAL RIGHT URETER: There is non-visualization of the distal right ureter. There is no demonstrated right ureterovesical junction calculus. There is a visualized right ureteral jet. LEFT KIDNEY: Normal location of the left kidney, which is normal in size. The left kidney measures 11.2 cm x 5.3 cm x 4.6 cm. There is a normal cortex of the left kidney. The renal cortex measures 1.5 cm. There is no left renal mass or cyst. There are no left renal calculi. There is no left hydronephrosis. DISTAL LEFT URETER: There is non-visualization of the distal left ureter. There is no demonstrated left ureterovesical junction calculus. There is a visualized left ureteral jet. BLADDER: The distended urinary bladder has a volume of 85 ml. There is a normal wall thickness of the distended urinary bladder. There is no demonstrated mass within the urinary bladder. There are no demonstrated bladder calculi. US/Kidney and Bladder IMPRESSION: Normal ultrasound of the kidneys and urinary bladder. 1.2 cm x 1.1 cm x 0.8 cm right lateral midpole cyst. Electronically Signed: Robert Randall MD at 15:10 EST ,
== END | disposition home or self-care (01) ==
PROVIDERS: PCP Family Medicine; Referring Provider Urology; Visit Provider Urology
DX: N39.0 Urinary tract infection, site not specified (principal)
CPT/HCPCS: 76770

== ENCOUNTER → 2024-09-27 | Outpatient (CLI) | payer MEDICARE, SELFPAY ==
[2024-09-27 17:56] LABS: Hematocrit 35.7 % (37-47); Mean Corp Hgb Conc 30.8 g/dL (32-36); Mean Corpuscular Hgb 25.8 pg (27.0-32.0); Mean Corpuscular Volume 83.6 fL (81-99); Mean Platelet Vol. 11.3 fl (6.2-12.0); Platelet Count 287 K/mm3 (150-450); RBC Distribution Width CV 15.9 % (11.6-14.6); RBC Distribution Width SD 47.4 fl (35.1-43.9); Red Blood Count 4.27 M/mm3 (4.2-5.4); White Blood Count 8.6 K/mm3 (4.4-11.0)
[2024-09-27 19:39] LABS: ALB/GLOB Ratio 0.6 RATIO (0.9-2.4); AST(SGOT) 16 U/L (15-37); Alanine Aminotransfer ALT/SGPT 16 U/L (13-56); Alkaline Phosphatase 145 U/L (45-117); Anion Gap 8 (5-15); BUN 11 mg/dL (7-18); BUN/Creat Ratio 12.7 RATIO (10-20); Chloride 101 mmol/L (98-107); Creatinine, Serum 0.86 mg/dL (0.55-1.02); EST Glomerular Filtration Rate 67 mL/min (>60); Est Glom Filt Rate - Afr Amer 81 mL/min (>60); Glucose 144 mg/dL (74-106); Potassium 3.5 mmol/L (3.5-5.1); Sodium Level 138 mmol/L (136-145)
== END | disposition home or self-care (01) ==
PROVIDERS: PCP Family Medicine; Referring Provider Family Medicine; Visit Provider Family Medicine
DX: E11.49 Type 2 diabetes mellitus with other diabetic neurological complication (principal)
CPT/HCPCS: 36415; 80053; 85027

== ENCOUNTER 2024-11-21 14:00 | Outpatient (RCR) | payer MEDICARE, SELFPAY ==
--- NOTE | 2024-10-13 23:11 | HP.PTEVAL_ITS ---
Patient's Visit Information Visit Information Visit Information: OLGA DONALDSON is a 79 year old F referred to Physical Therapy by Dr. Ramone Smiley MD with a diagnosis of LEG WEAKNESS; LUMBAR DDD, HIP ARTHRITIS. Date of Evaluation: 10/07/24 Physical Therapist: Veronica Pimentel, PT, Cert MDT Visit Plan Frequency: 2x /Week Duration: 4-6 Weeks Plan: Frequency: 2x /Week Duration: 4-6 Weeks 1. Improve hip and knee range of motion 2. Improve strength of core, quads, hamstrings and hips in both open and closed chain. 3. Progress gait with FWW as tolerated (do not progress to cane). Re-integrate functional mobility with step (not stairs) and transfers. Subjective Subjective: Work/Leisure: LIVES IN A DUPLEX WITH AND SON LIVES UPSTAIR S. SON IS DOING THE LAUNDRY AND CLEANING. GETTING MEALS ON WHEELS. DRESSING AND SHOWERING INDEP'LY - USING BENCH IN TUB. Present symptoms: LEFT HIP AND GROIN PAIN. LEG LEG WEAKNESS. PATIENT C/O NEEDING TO USE HER ARMS TO HELP HER L LEG IN AND OUT OF BED. Present since: NOVEMBER 2023 Pain Scale: WORST 8/10, LEAST 3/10 Currently: 3/10 Is it getting better, worse or staying the same: STAYING THE SAME Commenced as a result of: FALL IN LIVING ROOM - HIT RECLINER CHAIR - FELL IN THE DARK. Worse: GETTING IN/OUT OF BED, RISING FROM SITTING AFTER PROLONGED SITTING, L SDLY Better: [place], LYING DOWN SOMTIMES Disturbed sleep: YES Previous history/Previous treatment: ANTERIOR L HEMIARTHROPLASTY FOLLOWING FRACTURE 12/28/23. REHAB [facility] FOR ABOUT 3 WKS and THEN OP PT HERE AT BUT PATIENT REPORTS SHE DIDN'T FOLLOW THROUGHT BECAUSE IT WAS TOO HOT. SHE REPORTS WHEN SHE FOLLOWED UP WITH THE DOCTOR AFTER SURGERY HE ENCOURAGED HER TO COME BACK TO PT. SHE CAME BACK IN Mar BUT WAS ONLY ABLE TO ATTEND A FEW VISITS. PATIENT IS ALSO REPORTING HAVING SOME PT AT [facility] UNTIL MID JUL [address] SMILEY WANTS HER TO COME BACK AND TRY PT HERE AGAIN. Gait: PATIENT DENIES ANY RECENT FALLS. STATES SHE HAD TWO FALLS RIGHT AFTER SHE CAME HOME FROM THE HOSPITAL THAT SHE RELATES TO THE HOSPITAL BED BUT NONE SINCE (NO FALLS FOR ABOUT 8 MONTHS). USING THE WALKER AT ALL TIMES - FWW. NO STEPS IN/OUT OF HOUSE. SHE REPORTS THAT THE SURGEON AT [facility] SAID SHE WILL NEED THE WALKER THE REST OF HER LIFE. Imaging: PATIENT REPORTS LAST X-RAYS AT [facility] SHOWED HIP WAS HEALED IN JUL 2024. FOLLOW UP PENDING AGAIN IN 6 MONTHS (JANUARY 2025). PMH/Recent major surgery: Fracture of hip, left, closed - November 2023 Coronary artery disease Paronychia of left index finger Vaginal cyst Anxiety Depression Irregular heart beat Multiple thyroid nodules Foraminal stenosis of lumbar region Lumbar spinal stenosis Diabetic retinopathy Colon polyp Thyroid goiter Hyperlipidemia Hypokalemia Microcytic anemia Neurogenic bladder Hypophosphatemia Hypercalcemia Former smoker UTI (urinary tract infection) Iron deficiency anemia Aortic stenosis Hyponatremia Urine retention Chronic renal failure, stage 3 (moderate) Cellulitis and abscess of finger, unspecified Retinopathy Peripheral artery disease Leg weakness, bilateral GERD (gastroesophageal reflux disease) Chronic idiopathic constipation COPD (chronic obstructive pulmonary disease) Polypharmacy Hypertension Carpal tunnel syndrome of right wrist Strain of right rotator cuff capsule Rhinitis Urinary retention with incomplete bladder emptying Vitamin D deficiency Asthma Pruritus Goiter, nontoxic, multinodular Anemia Diabetes Hx of venous thrombosis and embolism History of malignant neoplasm of breast Type 2 diabetes mellitus History of left hip hemiarthroplasty S/P fine needle aspiration ~10/2020 H/O dilation and curettage ~07/10/20 History of Achilles tendon repair Retinopathy History of lumpectomy of left breast Objective Objective: Objective: GAIT: THIS PATIENT AMBULATES INDEP'LY INTO PT TODAY WITH A FWW, DECREASED CADANCE AND A MILD LIMP ON THE LLE. NO LOB. TU.5 SEC WITH FWW INDEP'LY 30 STS TEST: 2 WITH JOSE DANIEL UE ASSIST. ROM: Patient with Jose Daniel LE ROM/tightness all planes L>R Left LE strength hip flexion 3-/5, abduction 2+/5, adduction 4/5, extension 2/5, knee flexion 4/5, knee extension 4/5, ankle DF 4/5, ankle PF 4/5 Right LE strength hip flexion 4/5, abduction 4/5, adduction 5/5, extension 4/5, knee flexion 5/5, knee extension 5/5, ankle DF 5/5, ankle PF 5/5 SLS right [unable], left [unable] Sensory deficit: JOSE DANIEL LE LIGHT TOUCH SENSATION GROSSLY INTACT AND SYMMETRICAL Palpation: L HIP INCISION IS FULLY HEALED. MILD TENDERNESS L ANTEROLATERAL HIP REGION. Core Strength: Poor. Balance/Special Test Scores Lower Extremity Functional Score: 17 Goals Goal 1:: Pt. will improve left LE strength to 4/5 for all motions in order to improve ADL Ability. Goal Time Frame: 4-6 Weeks Goal 2:: Pt. will be able to walk at least 10 minutes with rolling walker and no rest break to demonstrate increased endurance. Goal Time Frame: 4-6 Weeks Goal 3:: Pt. will improve single leg stance > 5 secs in order to improve stability and balance. Goal Time Frame: 4-6 Weeks Goal 4:: Pt. will be able to complete at least 6 sit to stands in 30 secs with arm assist to demonstrate improved LE functional strength Goal Time Frame: 4-6 Weeks Goal 5:: Pt. will score at least 5 points better on the LEFS questionnaire to show improved ADL function. Goal Time Frame: 4-6 Weeks Goal 6:: Patient will complete Tug Test in < 25 secs with FWW to demonstrate improve gait stability. Goal Time Frame: 4-6 Weeks Rehabilitation Potential Physical Therapy Diagnosis: TRUNK AND LE WEAKNESS AND STIFFNESS WITH DIFFICULTY WITH GAIT. Rehabilitation Potential: Good Anticipated Interventions Patient/Client Instruction: Educate patient on: Condition, Plan of Care and Risk Factors For the Purpose of:: To improve self management Therapeutic Exercise to Include: Strength training, Balance training, Flexibilty training and Gait and locomotor training For the Purpose of:: To improve muscle performance and motor function, To increase tolerance to activity/condition/position, To improve performance and independence with ADL's, To improve ability of physical actions for home/community/work/leisure, To improve gait and locomotor functions, To increase flexibility/ROM, To improve balance, To improve safety with gait, To improve safety, To improve self management and To improve ability to perform tasks related to life management Text: Thank you for the opportunity to evaluate your patient. For Medicare and Medicare HMO plans, please review the plan of care and approve it. It will need to be FAXED BACK to us at [phone] for Medicare purposes. For Medicare only, by signing this I certify the plan of care. Please let me know if there are questions or concerns regarding this plan of care. Physician Signature: Date:
== END 2024-11-21 19:00 | disposition home or self-care (01) ==
LOC: PT 14:00
PROVIDERS: PCP Family Medicine; Referring Provider Family Medicine; Visit Provider Family Medicine
DX: R29.898 Other symptoms and signs involving the musculoskeletal system (principal); M16.10 Unilateral primary osteoarthritis, unspecified hip; M51.369 Other intervertebral disc degeneration, lumbar region without mention of lumbar back pain or lower extremity pain
CPT/HCPCS: 97110; 97116; 97162

== ENCOUNTER 2025-01-07 14:55 | Emergency (ER) | payer MEDICARE, SELFPAY ==
[2025-01-07 14:56] VITALS: BP 184/70; PULSE 92; RESP 34; TEMP 36.6; O2SAT 99; BMI 31.5
[2025-01-07 14:59] VITALS: O2SAT 98
--- NOTE | 2025-01-07 15:08 | EKG12_ITS ---
Test Reason : SOB Blood Pressure : */* mmHG Vent. Rate : 91 BPM Atrial Rate : 91 BPM P-R Int : 148 ms QRS Dur : 92 ms QT Int : 380 ms P-R-T Axes : 62 33 91 degrees QTcB Int : 467 ms Normal sinus rhythm Possible Left atrial enlargement Left ventricular hypertrophy ( Sokolow-Leon , [place] product ) Nonspecific ST and T wave abnormality Abnormal ECG Confirmed by Carlos Moore ([id number]), film editor supervisor ATTILA ESPINO ([id number]) on 01/09/2025 9:13:43 AM Referred By: Confirmed By: Carlos Moore
--- NOTE | 2025-01-07 15:11 | EDS_ITS ---
HPI History of Present Illness Chief Complaint: Shortness of Breath Informant: patient Narrative Narrative: Presents by EMS from home 5-day history of worsening dyspnea wheeze with productive sputum. History of asthma COPD remote tobacco. No home oxygen. Wheezing with mild sputum. Status post 2 DuoNeb's by EMS states clinically feeling better. She has inhaler at home. No chest or abdominal pain. No vomiting or diarrhea. No urinary symptoms. No fever or chills. Similar symptoms with flares in the past. She is a diabetic. Prior similar symptoms: Yes PFSH [facility] Medical History Fracture of hip, left, closed Coronary artery disease Paronychia of left index finger Vaginal cyst Anxiety Depression Irregular heart beat Multiple thyroid nodules Foraminal stenosis of lumbar region Lumbar spinal stenosis Diabetic retinopathy Colon polyp Thyroid goiter Hyperlipidemia Hypokalemia Microcytic anemia Neurogenic bladder Hypophosphatemia Hypercalcemia Former smoker UTI (urinary tract infection) Iron deficiency anemia Aortic stenosis Hyponatremia Urine retention Chronic renal failure, stage 3 (moderate) Cellulitis and abscess of finger, unspecified Retinopathy Peripheral artery disease Leg weakness, bilateral GERD (gastroesophageal reflux disease) Chronic idiopathic constipation COPD (chronic obstructive pulmonary disease) Polypharmacy Hypertension Carpal tunnel syndrome of right wrist Strain of right rotator cuff capsule Rhinitis Urinary retention with incomplete bladder emptying Vitamin D deficiency Asthma Pruritus Goiter, nontoxic, multinodular Anemia Diabetes Hx of venous thrombosis and embolism History of malignant neoplasm of breast Type 2 diabetes mellitus Home Medications ?Medication ?Instructions ?Recorded ?Last Taken ?Type aspirin 81 mg chewable tablet 81 mg PO DAILY HERT HEAL TH 01/21/16 08/12/23 History magnesium oxide 400 mg (241.3 mg 400 mg PO BID SUPPLEM ENT 08/16/18 08/12/23 History magnesium) tablet metoprolol tartrate 25 mg tablet 25 mg PO BID BLOOD MA ESSURE 08/16/18 08/12/23 History pantoprazole 40 mg tablet,delayed 40 mg PO QHS ACID RE FLUX 12/02/19 08/12/23 History release empagliflozin 10 mg tablet 10 mg PO DAILY DIABETES 08/12/23 History (Jardiance) sitagliptin phosphate 50 mg tablet 50 mg PO DAILY DIAB ETES 10/18/20 08/12/23 History (Januvia) multivitamin 1 tab PO DAILY VITAMIN 12/0608/12/23 History pravastatin 20 mg tablet 20 mg PO DAILY CHOLESTEROL 0 12/06/21 08/12/23 History ascorbic acid (vitamin C) 250 mg 250 mg PO DAILY SUPPL EMENT 08/13/23 08/12/23 History tablet (Vitamin C) dulaglutide 0.75 mg/0.5 mL 0.75 mg subcut MO DIABETES 08/13/23 08/10/23 History subcutaneous pen injector (Trulicity) gabapentin 100 mg capsule 100 mg PO QHS NERVE PAIN 08/12/23 History roflumilast 500 mcg tablet 500 mcg PO DAILY COPD 08/1308/12/23 History insulin glargine-yfgn 100 unit/mL 15 unit (0.15 mL) avila bcut BID 12/30/23 Unknown Rx (3 mL) subcutaneous pen diabetes-long acting insulin #0 mL insulin lispro 100 unit/mL 8 unit subcut TIDAC short a cting 12/30/23 Unknown History subcutaneous pen (Humalog KwikPen insulin (U-100) Insulin) acetaminophen 500 mg tablet 1,000 mg (2 x 500 mg) PO Q 6H PRN 01/15/24 Unknown Rx PRN Pain Score 1-3 #0 tabs netarsudil 0.02 %-latanoprost 0 drp EACH EYE DAILY #0 mL 01/15/24 Unknown Rx 0.005 % eye drops (Rocklatan) azithromycin 250 mg tablet 250 mg PO DAILY #4 TABLETS 01/07/25 Unknown Rx budesonide 160 mcg-glycopyr 9 inh inhalation 01/07/25 Unknown History mcg-formot 4.8 mcg/actuation HFA inhaler (Breztri Aerosphere) diltiazem HCl 180 mg mg PO 01/07/25 Unknown Histo ry capsule,extended release 24 hr, controlled insulin glargine 100 unit/mL (3 unit subcut 01/07/25 U nknown History mL) subcutaneous pen (Lantus Solostar U-100 Insulin) ipratropium bromide 21 mcg (0.03 intranasal 01/07/25 U nknown History %) nasal spray lancets 28 gauge (TRUEplus Lancets) 01/07/25 Unknown History prednisone 20 mg tablet 40 mg (2 x 20 mg) PO DAILY # 8 01/07/25 Unknown Rx TABLETS triamcinolone acetonide 0.1 % 1 applic topical TID 06/24 Unknown History topical ointment Allergy/AdvReac Type Severity Reaction Status Date / Time adhesive tape (tape) Allergy NEEDS Verified 01/07/25 14:59 FOLLOW-UP amoxicillin Allergy YEAST Verified 01/07/25 14:59 INFECTION cephalexin monohydrate (From Allergy Rash Verified 01/07/25 14:59 Keflex) clopidogrel bisulfate (From Allergy Other Verified 01/07/25 14:59 Plavix) Family History Daughter Breast cancer Father Hypertension Sister Cancer Kidney disease Mother Pancreatic cancer Surgical History History of left hip hemiarthroplasty S/P fine needle aspiration (~10/2020) H/O dilation and curettage (~07/10/20) History of Achilles tendon repair Retinopathy History of lumpectomy of left breast Social History household members: spouse Smoking Status: Former smoker alcohol intake: never substance use type: does not use caffeine: Yes what type of physical activity do you participate in: none seatbelt use: always do you feel safe at home: Yes additional social history: [employer]- retired ROS ROS ED Constitutional Constitutional ED: Denies chills, fever(s) or sweats ENT ENT ED: Denies sore throat Cardiovascular Cardiovascular: Denies chest pain, leg edema, palpitations or racing heartbeat Respiratory/Chest Respiratory/Chest: Reports cough and dyspnea; Denies dyspnea on exertion Gastrointestinal Gastrointestinal: Denies abdominal pain, diarrhea, nausea or vomiting Genitourinary Genitourinary ED: Denies dysuria, hematuria or urinary frequency Musculoskeletal Musculoskeletal: Denies back pain, extremity pain or neck pain Integumentary Denies rash or wounds Neurologic Neurologic: Denies headache(s), paresthesias or weakness EXAM Physical Exam Const Vital Signs: 01/07/25 14:56 01/07/25 14:59 Temperature 98 F Temperature Source Oral Pulse Rate 92 Respiratory Rate 34 H Respiratory Effort Normal Non-Labored Respiratory Depth Normal Respiratory Pattern Tachypnea Blood Pressure 184/70 H Blood Pressure Mean 108 Pulse Ox 99 Oxygen Delivery Method Room Air Room Air Positive well nourished and well developed General Appearance ED: well developed and NAD HEENT Reports moist mucous membranes normocephalic and atraumatic Eyes General Eye ED: Yes normal appearance of both eyes Neck full ROM Chest Wall Chest: Negative for tenderness Resp normal respiratory effort Resp Narrative: Faint expiratory wheeze right lower lobe. No distress. Effort and Inspection: symmetric chest movement; Negative for respiratory distress Cardio regular rate, regular rhythm and no murmurs Peripheral Pulses: pulses 2+ throughout GI normal to inspection, nondistended, normoactive bowel sounds and non-tender Palpation: Negative for guarding or rebound tenderness present Extremity normal to inspection General Extremety ED: Negative for edema or tenderness General Extremity: Negative for edema Neuro oriented x3 and no sensory deficits noted Sensorium / Orientation: awake and alert Skin no rashes or lesions noted and no wounds MDM MDM MDM Narrative Medical decision making narrative: Interventions / MDM: Differential diagnosis: COPD exacerbation, asthma exacerbation diabetic hyperglycemia Diagnosis considered but do not suspect: Pneumonia however x-ray negative, marco a betic ketoacidosis every anion gap normal. My EKG interpretation: Sinus rhythm 91, no ST or T wave changes. QTc 467. Imaging independently reviewed and interpreted by myself: 2 view chest x-ray: No infiltrate or effusion. Also read by radiology. External documents reviewed: Hospitalization in November 2023 for hip fracture was on Eliquis for DVT prophylaxis postsurgery. Test considered but not ordered:N/A ED course: Vital signs stable initial triage had respiratory rate of 34 in the room she is 16. She is in no respiratory distress. Afebrile 99% on room air. Faint wheeze asthma COPD history she is a diabetic. Will start steroids 40 mg for diabetes history. Will check basic labs EKG chest x-ray. Check nasal swab. will reevaluate. 1615: Chest x-ray negative. White count 9.1 hemoglobin 10.5. Creatinine 0.9. Glucose was 321 with normal gap at 11. Discussed with patient she is on long- acting and short acting sliding scale along with Januvia. With her get steroids I will give her 10 units of Humalog short acting. Clinically remaining stable. Awaiting viral swab. Will ambulate with a pulse ox for disposition plan. 1655: Viral swabs negative. Patient ambulated 94% on room air. Patient will check her glucose before dinner if she has her sliding scale written at home for insulin. She understands sugars will be up with the steroids. She will be placed on 4 days of antibiotics and steroids. She will follow-up with her PCP. Strict return precaution discussed. All questions were answered. Re-evaluation: stable Disposition discussed with patient/family/significant other: Patient Case discussed with consulting clinician: N/A This note was generated with [employer] dictation software. It may contain incorrect words, spelling, and punctuation that were not noted in checking the note before signing. Lab Data Attestation: I reviewed the patient's lab results. Labs: Laboratory Results - last 24 hr 01/07/25 01/07/25 15:21 16:32 WBC 9.1 RBC 3.91 L Hgb 10.5 L Hct 34.0 L MCV 87.0 MCH 26.9 L MCHC 30.9 L RDW Std Deviation 49.4 H RDW Coeff of Vijay 15.7 H Plt Count 237 MPV 11.1 Immature Gran % (Auto) 0.200 Neut % (Auto) 58.0 Lymph % (Auto) 31.8 [place] % (Auto) 7.6 Eos % (Auto) 1.9 Baso % (Auto) 0.5 Absolute Neuts (auto) 5.3 Absolute Lymphs (auto) 2.89 Nucleated RBC % 0 Sodium 133 Potassium 3.8 Chloride 99 Carbon Dioxide 22.5 Anion Gap 11 BUN 14 Creatinine 0.90 Estim Creat Clear Calc 49.31 L Est GFR (MDRD) Non-Af 64 BUN/Creatinine Ratio 15.5 Glucose 321 H Calcium 10.3 POC Glucose 316 H Radiography Diagnostic Testing: Clinical Impression(s) from Imaging Studies Chest X-Ray 01/07/25 15:33 IMPRESSION: Cardiomegaly without overt failure. Reading Location: [facility] Discharge Plan Triage Chief Complaint: Shortness of Breath ED Provider: Ethan Darnell Dx/Rx/DC Orders Clinical Impression: Acute exacerbation of COPD with asthma, Diabetes, Cough Instructions: ED COPD Flare Prescriptions: New azithromycin 250 mg tablet 250 mg PO DAILY Qty: 4 0RF prednisone 20 mg tablet 40 mg PO DAILY Qty: 8 0RF No Action Januvia 50 mg tablet 50 mg PO DAILY Jardiance 10 mg tablet 10 mg PO DAILY multivitamin Tablet 1 tab PO DAILY pravastatin 20 mg tablet 20 mg PO DAILY aspirin 81 MG tablet,chewable 81 mg PO DAILY metoprolol tartrate 25 MG tablet 25 mg PO BID magnesium oxide 400 MG tablet 400 mg PO BID pantoprazole 40 MG tablet 40 mg PO QHS gabapentin 100 mg capsule 100 mg PO QHS roflumilast 500 mcg tablet 500 mcg PO DAILY Trulicity 0.75 mg/0.5 mL pen injector 0.75 mg subcut MO ascorbic acid (vitamin C) [Vitamin C] 250 mg tablet 250 mg PO DAILY insulin glargine-yfgn 100 unit/mL (3 mL) Insulin Pen 15 unit subcut BID Qty: 0 0RF Rx Instructions: Hold if glucose less than 130 mg/dl insulin lispro [Humalog KwikPen Insulin] 100 unit/mL Insulin Pen 8 unit subcut TIDAC Rx Instructions: Hold if glucose less than 130 mg/dl acetaminophen 500 mg Tablet 1,000 mg PO Q6H PRN PRN (Reason: Pain Score 1-3) Qty: 0 0RF Rocklatan 0.02-0.005 % Drops 0 drp EACH EYE DAILY Qty: 0 0RF triamcinolone acetonide 0.1 % ointment 1 applic topical TID diltiazem HCl 180 mg capsule,ext.rel 24h degradable PO Patient Comments: [NO ORIGINAL SIG] ipratropium bromide 21 mcg (0.03 %) spray,non-aerosol INTRANASAL Patient Comments: [NO ORIGINAL SIG] insulin glargine [Lantus Solostar U-100 Insulin] 100 unit/mL (3 mL) insulin pe n subcut (DME) lancets [TRUEplus Lancets] 28 gauge misc MISCELLANEOUS Breztri Aerosphere 160-9-4.8 mcg/actuation HFA aerosol inhaler inhalation Primary Care Provider: Ramone Smiley Referrals: Ramone Smiley MD [Primary Care Provider] - Activity Restrictions/Additional Instructions: Chest x-ray negative. COVID, flu, RSV negative. Your glucose 321 the lab normal gap. You are given 10 units of short acting insulin. You were started on antibiotics and steroids. Your glucose will be elevated with the steroids. Continue insulin including your sliding scale. Next dose of antibiotics steroids is tomorrow. This was sent to [facility]. Print Language: Swedish Disposition Disposition: Home, Self Care
[2025-01-07] MEDS: predniSONE 20 MG Tablet 40 MG PO (15:26)
[2025-01-07 15:29] LABS: Absolute Lymphocyte Count 2.89 X10^3/uL (0.83-4.51); Absolute Neutrophil Count 5.3 X10^3/uL (2.0-7.7); Basophil# 0.05 X10^3/uL; Basophil% 0.5 % (0-1); Eosinophil# 0.17 X10^3/uL; Eosinophils% 1.9 % (0-5); Hemoglobin 10.5 g/dL (12.0-15.0); Lymphocyte # 2.89 X10^3/ul (0.83-4.51); Lymphocyte % 31.8 % (19-41); Mean Corp Hgb Conc 30.9 g/dL (32-36); Mean Corpuscular Hgb 26.9 pg (27.0-32.0); Mean Platelet Vol. 11.1 fl (6.2-12.0); Monocyte# 0.69 X10^3/uL; Monocyte% 7.6 % (0-10); NRBC Flagged by Analyzer 0 % (0-5); Neutrophil # 5.28 X10^3/uL (2.7-7.7); Platelet Count 237 K/mm3 (150-450); RBC Distribution Width CV 15.7 % (11.6-14.6); RBC Distribution Width SD 49.4 fl (35.1-43.9); Red Blood Count 3.91 M/mm3 (4.2-5.4); White Blood Count 9.1 K/mm3 (4.4-11.0)
--- NOTE | 2025-01-07 15:33 | RAD_ITS ---
EXAM: XR Chest, 2 Views CLINICAL INDICATION: COUGH TECHNIQUE: Frontal and lateral views of the chest. COMPARISON: No relevant prior studies available. FINDINGS: LUNGS AND PLEURAL SPACES: Unremarkable. No consolidation. No pneumothorax. HEART: Cardiomegaly without overt failure. MEDIASTINUM: Unremarkable. Normal mediastinal contour. BONES/JOINTS: Unremarkable. No acute fracture. RAD/Chest PA and Lateral IMPRESSION: Cardiomegaly without overt failure. Reading Location: [id number]
[2025-01-07 16:10] LABS: Anion Gap 11 (5-15); BUN 14 mg/dL (4-19); BUN/Creat Ratio 15.5 RATIO (10-20); Calcium,Total 10.3 mg/dL (7.6-11.0); Carbon Dioxide 22.5 mmol/L (21.0-32.0); Chloride 99 mmol/L (98-108); EST Glomerular Filtration Rate 64 (>60); Estimated Creatinine Clearance 49.31 ml/min (50-250); Glucose 321 mg/dL (70-99); Potassium 3.8 mmol/L (3.3-5.1); Sodium Level 133 mmol/L (133-145)
[2025-01-07] MEDS: Azithromycin 250 MG Tablet 500 MG PO (16:33)
[2025-01-07] MEDS: Insulin Lispro 100 UNIT/ML INSULN.PEN 10 UNIT SC (16:34)
[2025-01-07 16:46] VITALS: O2SAT 98
[2025-01-07 16:54] LABS: Bedside Glucose 316 mg/dL (74-106)
[2025-01-07 16:55] VITALS: BP 152/61; PULSE 78; RESP 22; O2SAT 97
[2025-01-07 17:34] VITALS: BP 147/78; PULSE 82; RESP 19; TEMP 36.4; O2SAT 97
== END 2025-01-07 17:35 | disposition home or self-care (01) ==
PROVIDERS: Emergency Provider Emergency Medicine; PCP Family Medicine; Visit Provider Emergency Medicine
DX: J44.1 Chronic obstructive pulmonary disease with (acute) exacerbation (principal); E11.51 Type 2 diabetes mellitus with diabetic peripheral angiopathy without gangrene; E11.22 Type 2 diabetes mellitus with diabetic chronic kidney disease; Z79.4 Long term (current) use of insulin; N18.30 Chronic kidney disease, stage 3 unspecified; I12.9 Hypertensive chronic kidney disease with stage 1 through stage 4 chronic kidney disease, or unspecified chronic kidney disease; E78.5 Hyperlipidemia, unspecified; I25.10 Atherosclerotic heart disease of native coronary artery without angina pectoris; Z87.891 Personal history of nicotine dependence
CPT/HCPCS: 71046; 80048; 82962; 85025; 87631; 93005; 99285; A4216

== ENCOUNTER 2025-01-15 14:14 | Emergency (ER) | payer MEDICARE, SELFPAY ==
[2025-01-15] VITALS (9 sets, daily range): BP systolic 128–147; BP diastolic 59–81; PULSE 66–71; RESP 19–23; TEMP 36.6–36.7; O2SAT 95–98; BMI 32.3
--- NOTE | 2025-01-15 14:45 | EKG12_ITS ---
Test Reason : SOB Blood Pressure : */* mmHG Vent. Rate : 67 BPM Atrial Rate : 67 BPM P-R Int : 164 ms QRS Dur : 82 ms QT Int : 418 ms P-R-T Axes : * 39 241 degrees QTcB Int : 441 ms Normal sinus rhythm ST & T wave abnormality, consider anterolateral ischemia Abnormal ECG Confirmed by KELSEA ELARY, ANN ([id number]), publication editor MIKE MATTHEW ([id number]) on 01/16/2025 9:27:10 AM Referred By: Confirmed By: ANN ENAMORADO MD
--- NOTE | 2025-01-15 15:04 | EX.ED.DYSGE1 ---
HPI History of Present Illness Chief Complaint: Shortness of Breath Narrative Narrative: Patient is a 80-year-old female with past medical history of CAD, anxiety, depression, microcytic anemia, neurogenic bladder, chronic kidney disease stage III, COPD not normally on oxygen, diabetes who presented to the emergency department with a chief complaint of shortness of breath. Patient states that for the past 2 days she has noted that she had more shortness of breath than normal. States that she recently completed a course of steroids and antibiotics but does not recall the name of the antibiotic that was placed on. [facility] Medical History Fracture of hip, left, closed Coronary artery disease Paronychia of left index finger Vaginal cyst Anxiety Depression Irregular heart beat Multiple thyroid nodules Foraminal stenosis of lumbar region Lumbar spinal stenosis Diabetic retinopathy Colon polyp Thyroid goiter Hyperlipidemia Hypokalemia Microcytic anemia Neurogenic bladder Hypophosphatemia Hypercalcemia Former smoker UTI (urinary tract infection) Iron deficiency anemia Aortic stenosis Hyponatremia Urine retention Chronic renal failure, stage 3 (moderate) Cellulitis and abscess of finger, unspecified Retinopathy Peripheral artery disease Leg weakness, bilateral GERD (gastroesophageal reflux disease) Chronic idiopathic constipation COPD (chronic obstructive pulmonary disease) Polypharmacy Hypertension Carpal tunnel syndrome of right wrist Strain of right rotator cuff capsule Rhinitis Urinary retention with incomplete bladder emptying Vitamin D deficiency Asthma Pruritus Goiter, nontoxic, multinodular Anemia Diabetes Hx of venous thrombosis and embolism History of malignant neoplasm of breast Type 2 diabetes mellitus Home Medications ?Medication ?Instructions ?Recorded ?Last Taken ?Type aspirin 81 mg chewable tablet 81 mg PO DAILY [facility] 01/21/16 01/15/25 History magnesium oxide 400 mg (241.3 mg 400 mg PO BID SUPPLEMENT 08/16/18 01/15/25 History magnesium) tablet metoprolol tartrate 25 mg tablet 25 mg PO BID BLOOD PRESSURE 08/16/18 01/15/25 History pantoprazole 40 mg tablet,delayed 40 mg PO DAILY ACID REFLUX 12/02/19 01/15/25 History release empagliflozin 10 mg tablet 10 mg PO DAILY DIABETES 10/18/20 01/15/25 History (Jardiance) sitagliptin phosphate 50 mg tablet 50 mg PO DAILY DIABETES 10/18/20 01/15/25 History (Januvia) multivitamin 1 tab PO DAILY VITAMIN 12/06/21 01/15/25 History pravastatin 20 mg tablet 20 mg PO DAILY CHOLESTEROL 12/06/21 01/15/25 History ascorbic acid (vitamin C) 250 mg 250 mg PO DAILY SUPPLEMENT 08/13/23 01/15/25 History tablet (Vitamin C) gabapentin 100 mg capsule 100 mg PO QHS NERVE PAIN 08/13/23 01/14/25 History roflumilast 500 mcg tablet 500 mcg PO DAILY COPD 08/13/23 01/15/25 History insulin lispro 100 unit/mL 10 unit subcut TIDAC short acting 12/30/23 01/15/25 History subcutaneous pen (Humalog KwikPen insulin (U-100) Insulin) budesonide 160 mcg-glycopyr 9 2 inh inhalation BID 01/07/25 01/15/25 History mcg-formot 4.8 mcg/actuation HFA inhaler (Breztri Aerosphere) diltiazem HCl 180 mg 180 mg PO DAILY 01/07/25 01/15/25 History capsule,extended release 24 hr, controlled insulin glargine 100 unit/mL (3 20 unit subcut BID 01/07/25 01/15/25 History mL) subcutaneous pen (Lantus Solostar U-100 Insulin) ipratropium bromide 21 mcg (0.03 1 - 2 spray intranasal Q6H PRN 01/07/25 Unknown History %) nasal spray allergy symptoms lancets 28 gauge (TRUEplus Lancets) 01/07/25 Unknown History acetaminophen 500 mg tablet 1,000 mg PO Q6H PRN Pain Score 1-3 01/15/25 Unknown History azelastine 137 mcg (0.1 %) nasal 1 - 2 spray intranasal BID 01/15/25 01/15/25 History spray furosemide 40 mg tablet (Lasix) 40 mg PO DAILY #5 tabs 01/15/25 Unknown Rx mecobalamin (vitamin B12) 1,000 1,000 mcg PO DAILY 01/15/25 01/15/25 History mcg chewable tablet (B12 Active) menthol 0.44 %-zinc oxide 20.6 % 1 applic topical 4X/DAY PRN skin 01/15/25 Unknown History topical ointment (CalaSoothe) irritation netarsudil 0.02 %-latanoprost 1 drp EACH EYE DAILY 01/15/25 01/15/25 History 0.005 % eye drops (Rocklatan) potassium chloride 20 mEq oral 20 meq PO BID #30 ea 01/15/25 Unknown Rx packet psyllium husk 0.4 gram capsule 0.4 g PO DAILY 01/15/25 01/15/25 History (Daily Fiber) tirzepatide 5 mg/0.5 mL 5 mg subcut QWEEK 01/15/25 Unknown History subcutaneous pen injector (Baoro) Allergy/AdvReac Type Severity Reaction Status Date / Time adhesive tape (tape) Allergy NEEDS Verified 01/15/25 14:25 FOLLOW-UP amoxicillin Allergy YEAST Verified 01/15/25 14:25 INFECTION cephalexin monohydrate (From Allergy Rash Verified 01/15/25 14:25 Keflex) clopidogrel bisulfate (From Allergy Other Verified 01/15/25 14:25 Plavix) Family History Daughter Breast cancer Father Hypertension Sister Cancer Kidney disease Mother Pancreatic cancer Surgical History History of left hip hemiarthroplasty S/P fine needle aspiration (~10/2020) H/O dilation and curettage (~07/10/20) History of Achilles tendon repair Retinopathy History of lumpectomy of left breast Social History household members: spouse Smoking Status: Former smoker alcohol intake: never substance use type: does not use caffeine: Yes what type of physical activity do you participate in: none seatbelt use: always do you feel safe at home: Yes additional social history: [employer]- retired ROS ROS ED ROS Narrative Constitutional: Denies fevers, chills, headaches, lightness, dizziness Eyes: Denies all vision blurry vision changes vision Cardiovascular: Denies chest pain palpitations Respiratory: Complains of shortness of breath with exertion Abdomen: Denies abdominal pain nausea vomit diarrhea : Denies urinary symptoms Neurological: Denies any numbness, wheeze, tingling Musculoskeletal: Denies back pain Skin: Denies any rashes or lesions EXAM Physical Exam Narrative Exam Narrative: General: Patient lying in bed rest comfortably did not appear to be acute distress Head: Atraumatic, normocephalic Eyes: PERRL bilaterally, EOMI bilateral, no conjunctival injection noted Neck: Soft, supple, trachea midline Cardiovascular: Regular rate and rhythm patient does have a murmur noted on exam no rubs noted Respiratory: Clear to auscultation bilaterally no rales rhonchi or wheeze noted Abdomen: Soft, nondistended, no tenderness palpation Extremities: +4/5 strength noted in the bilateral upper and lower extremity, radial pulses +2/4 in the bilateral extremities, 1+ pitting edema in the bilateral lower extremities Neurological: Patient follow commands and that she was at [facility] the year is 2024 Skin: Warm, dry, intact no rashes or lesions noted, Const Vital Signs: 01/15/25 14:14 01/15/25 15:17 01/15/25 15:22 Temperature 98.1 F Temperature Source Oral Pulse Rate 71 Respiratory Rate 19 H Respiratory Effort Normal Non-Labored Respiratory Pattern Normal Blood Pressure 139/60 H Blood Pressure Mean 86 Pulse Ox 98 98 Oxygen Delivery Method Room Air Room Air Room Air 01/15/25 15:30 01/15/25 16:12 01/15/25 17:00 Temperature Temperature Source Pulse Rate 69 66 69 Respiratory Rate 23 H 21 H 20 H Respiratory Effort Respiratory Pattern Blood Pressure 129/70 H 128/59 H 147/81 H Blood Pressure Mean 89 81 103 Pulse Ox 98 Oxygen Delivery Method Room Air 01/15/25 17:45 Temperature Temperature Source Pulse Rate 69 Respiratory Rate 22 H Respiratory Effort Respiratory Pattern Blood Pressure Blood Pressure Mean Pulse Ox 98 Oxygen Delivery Method MDM MDM MDM Narrative Medical decision making narrative: Patient is a 80-year-old female who presented to the emergency department for complaint of shortness of breath on exertion. On the differential diagnosis includes but not limited to CHF, pneumonia, pneumothorax, posterior infection, viral etiology, COPD exacerbation. Once workup is obtained reviewed she will be reevaluated. Patient's CBC was reviewed and showed no evidence leukocytosis white blood count normal at 10.6, hemoglobin is 11, platelet count was noted be 256. Patient's sodium was 138, potassium 3.7, creatinine was normal at 0.92. Patient's troponin was 46 with a delta troponin obtained at 46, EKG reviewed and showed sinus rhythm with a rate of 67 beats per minutes. When compared to previous EKG from January 07, 2025 this was largely unchanged. Patient's proBNP elevated 4224. Patient chest x-ray was reviewed by myself and by radiology which showed cardiomegaly with mild congestion. Patient ambulated well here in the emergency department no tachycardia no hypoxia. Patient's echocardiogram from 06/20/2021 reviewed showed ejection fraction 70%. Patient was given 40 mg of IV Lasix. At this point in time patient would like to go home while ambulating she felt well and had no shortness of breath she states that its much improved since earlier today. Advised her that we will place her on oral Lasix for the next 5 days as well as some potassium supplementation and she needs to follow-up with her primary care physician outpatient setting. She needs to return for worsening symptoms and concerns. She is agreeable this plan all question concerns answered she was discharged home in stable condition. Lab Data Labs: Laboratory Results - last 24 hr 01/15/25 01/15/25 15:15 17:19 WBC 10.6 RBC 3.96 L Hgb 11.0 L Hct 34.3 L MCV 86.6 MCH 27.8 MCHC 32.1 RDW Std Deviation 50.8 H RDW Coeff of Vijay 16.3 H Plt Count 256 MPV 10.5 Immature Gran % (Auto) 0.400 Neut % (Auto) 72.7 H Lymph % (Auto) 18.1 L Moore % (Auto) 6.9 Eos % (Auto) 1.6 Baso % (Auto) 0.3 Absolute Neuts (auto) 7.7 Absolute Lymphs (auto) 1.92 Nucleated RBC % 0 Sodium 138 Potassium 3.7 Chloride 102 Carbon Dioxide 25.0 Anion Gap 11 BUN 15 Creatinine 0.92 Estim Creat Clear Calc 48.84 L Est GFR (MDRD) Non-Af 63 BUN/Creatinine Ratio 16.6 Glucose 144 H Calcium 9.6 Troponin T High Sens 46 H Troponin T Hi Sens 2 Hr 46 H NT pro BNP II 4224 H Radiography Diagnostic Testing: Clinical Impression(s) from Imaging Studies Chest X-Ray 01/15/25 15:21 IMPRESSION: Cardiomegaly with mild congestion. Reading Location: [facility] Discharge Plan Triage Chief Complaint: Shortness of Breath ED Provider: Jeevan Yoder Dx/Rx/DC Orders Clinical Impression: Shortness of breath Prescriptions: New potassium chloride 20 mEq packet 20 meq PO BID Qty: 30 0RF furosemide [Lasix] 40 mg tablet 40 mg PO DAILY Qty: 5 0RF No Action Januvia 50 mg tablet 50 mg PO DAILY Jardiance 10 mg tablet 10 mg PO DAILY multivitamin Tablet 1 tab PO DAILY pravastatin 20 mg tablet 20 mg PO DAILY aspirin 81 MG tablet,chewable 81 mg PO DAILY metoprolol tartrate 25 MG tablet 25 mg PO BID magnesium oxide 400 MG tablet 400 mg PO BID pantoprazole 40 MG tablet 40 mg PO DAILY gabapentin 100 mg capsule 100 mg PO QHS roflumilast 500 mcg tablet 500 mcg PO DAILY ascorbic acid (vitamin C) [Vitamin C] 250 mg tablet 250 mg PO DAILY insulin lispro [Humalog KwikPen Insulin] 100 unit/mL Insulin Pen 10 unit subcut TIDAC Rx Instructions: Hold if glucose less than 120 mg/dl Mounjaro 5 mg/0.5 mL pen injector 5 mg subcut QWEEK Patient Comments: PT STATES SHE SOMETIMES TAKES IT ON THURSDAY, SOMETIMES ON FRIDAYS. menthol-zinc oxide [CalaSoothe] 0.44-20.6 % ointment 1 applic topical 4X/DAY PRN (Reason: skin irritation) psyllium husk [Daily Fiber] 0.4 gram capsule 0.4 g PO DAILY mecobalamin (vitamin B12) [B12 Active] 1,000 mcg tablet,chewable 1,000 mcg PO DAILY azelastine 137 mcg (0.1 %) spray,non-aerosol 1 - 2 spray INTRANASAL BID acetaminophen 500 mg Tablet 1,000 mg PO Q6H PRN (Reason: Pain Score 1-3) Rocklatan 0.02-0.005 % Drops 1 drp EACH EYE DAILY diltiazem HCl 180 mg capsule,ext.rel 24h degradable 180 mg PO DAILY ipratropium bromide 21 mcg (0.03 %) spray,non-aerosol 1 - 2 spray INTRANASAL Q6H PRN (Reason: allergy symptoms) insulin glargine [Lantus Solostar U-100 Insulin] 100 unit/mL (3 mL) insulin pen 20 unit subcut BID (DME) lancets [TRUEplus Lancets] 28 gauge misc MISCELLANEOUS Breztri Aerosphere 160-9-4.8 mcg/actuation HFA aerosol inhaler 2 inh inhalation BID Primary Care Provider: Ramone Smiley Referrals: Ramone Smiley MD [Primary Care Provider] - Activity Restrictions/Additional Instructions: Take medications as prescribed. Follow-up your doctor in outpatient setting. Return with worsening symptoms or concerns. Print Language: Prydeinig Disposition Disposition: Home, Self Care
--- NOTE | 2025-01-15 15:21 | RAD_ITS ---
EXAM: XR Chest, 2 Views CLINICAL INDICATION: CHEST PAIN TECHNIQUE: Frontal and lateral views of the chest. COMPARISON: No relevant prior studies available. FINDINGS: LUNGS AND PLEURAL SPACES: See below. HEART: Cardiomegaly with mild congestion. MEDIASTINUM: Unremarkable. Normal mediastinal contour. BONES/JOINTS: Unremarkable. No acute fracture. RAD/Chest PA and Lateral IMPRESSION: Cardiomegaly with mild congestion. Reading Location: [id number]
[2025-01-15 15:23] LABS: Absolute Lymphocyte Count 1.92 X10^3/uL (0.83-4.51); Absolute Neutrophil Count 7.7 X10^3/uL (2.0-7.7); Basophil# 0.03 X10^3/uL; Basophil% 0.3 % (0-1); Eosinophil# 0.17 X10^3/uL; Eosinophils% 1.6 % (0-5); Hematocrit 34.3 % (37-47); Lymphocyte # 1.92 X10^3/ul (0.83-4.51); Lymphocyte % 18.1 % (19-41); Mean Corp Hgb Conc 32.1 g/dL (32-36); Mean Corpuscular Hgb 27.8 pg (27.0-32.0); Mean Corpuscular Volume 86.6 fL (81-99); Mean Platelet Vol. 10.5 fl (6.2-12.0); Monocyte# 0.73 X10^3/uL; Monocyte% 6.9 % (0-10); NRBC Flagged by Analyzer 0 % (0-5); Neutrophil # 7.71 X10^3/uL (2.7-7.7); Neutrophil % 72.7 % (47-70); Platelet Count 256 K/mm3 (150-450); RBC Distribution Width CV 16.3 % (11.6-14.6); RBC Distribution Width SD 50.8 fl (35.1-43.9); Red Blood Count 3.96 M/mm3 (4.2-5.4); White Blood Count 10.6 K/mm3 (4.4-11.0)
[2025-01-15 16:17] LABS: Pro- Brain NATRIURETIC PEPTIDE 4224 pg/mL (<=1800)
[2025-01-15 16:22] LABS: Troponin T High Sensitivity 46 ng/L (<=14)
[2025-01-15 16:37] LABS: Anion Gap 11 (5-15); BUN 15 mg/dL (4-19); BUN/Creat Ratio 16.6 RATIO (10-20); Calcium,Total 9.6 mg/dL (7.6-11.0); Chloride 102 mmol/L (98-108); Creatinine, Serum 0.92 mg/dL (0.70-1.20); EST Glomerular Filtration Rate 63 (>60); Estimated Creatinine Clearance 48.84 ml/min (50-250); Glucose 144 mg/dL (70-99); Potassium 3.7 mmol/L (3.3-5.1); Sodium Level 138 mmol/L (133-145)
[2025-01-15] MEDS: Furosemide 40 MG/4 ML Vial IV (17:33)
[2025-01-15 17:45] LABS: Troponin T High Sens 2 HR 46 ng/L (<=14)
== END 2025-01-15 18:59 | disposition home or self-care (01) ==
PROVIDERS: Emergency Provider Emergency Medicine; PCP Family Medicine; Visit Provider Emergency Medicine
DX: R06.02 Shortness of breath (principal); J44.9 Chronic obstructive pulmonary disease, unspecified; E11.22 Type 2 diabetes mellitus with diabetic chronic kidney disease; Z79.4 Long term (current) use of insulin; N18.30 Chronic kidney disease, stage 3 unspecified; I25.10 Atherosclerotic heart disease of native coronary artery without angina pectoris; Z87.891 Personal history of nicotine dependence; I12.9 Hypertensive chronic kidney disease with stage 1 through stage 4 chronic kidney disease, or unspecified chronic kidney disease; E78.5 Hyperlipidemia, unspecified; N31.9 Neuromuscular dysfunction of bladder, unspecified; Z79.82 Long term (current) use of aspirin; Z79.899 Other long term (current) drug therapy
CPT/HCPCS: 71046; 80048; 83880; 84484; 85025; 93005; 99285; A4216; J1940

== ENCOUNTER 2025-01-19 23:58 | Inpatient (IN) | payer MEDICARE, SELFPAY ==
[2025-01-19 23:58] VITALS: O2SAT 70
[2025-01-19 23:59] VITALS: BP 138/96; PULSE 68; RESP 30; TEMP 36.2; O2SAT 100; BMI 32.2
[2025-01-20] VITALS (41 sets, daily range): BP systolic 105–145; BP diastolic 57–88; PULSE 77–151; RESP 14–38; TEMP 36.1–37.1; O2SAT 91–100; BMI 30.1
--- NOTE | 2025-01-20 00:09 | EKG12_ITS ---
Test Reason : SOB Blood Pressure : */* mmHG Vent. Rate : 111 BPM Atrial Rate : 111 BPM P-R Int : 144 ms QRS Dur : 88 ms QT Int : 358 ms P-R-T Axes : 52 49 -22 degrees QTcB Int : 486 ms Sinus tachycardia with Premature supraventricular complexes Nonspecific ST and T wave abnormality QTcB >= 480 msec Abnormal ECG Confirmed by DEBORAH LEARY, KHRIS ([id number]), associate editor ATTILA ESPINO ([id number]) on 01/24/2025 6:55:05 AM Referred By: PETER Confirmed By: KHRIS CABRERA MD
--- NOTE | 2025-01-20 00:09 | CT_ITS ---
PROCEDURE: CTA CHEST W/WO CONTRAST 01/20/2025 REASON FOR EXAM: SOB TECHNIQUE: CTA imaging of the chest with intravenous contrast. Multiplanar and multisequence images were obtained. Coronal and sagittal MIP images CONTRAST: 95 cc Isovue 370 IV One or more dose reduction techniques were used (e.g., Automated exposure control, adjustment of the mA and/or kV according to patient size, use of iterative reconstruction technique). RADIATION DOSE SUMMARY: CTDlvol: 35.62 mGy DLP: 468.67 mGycm COMPARISON: Chest radiograph 01/15/2025 FINDINGS: No evidence of filling defect to suggest pulmonary embolism. Atherosclerotic changes at the thoracic aortic arch and descending thoracic aorta with some areas of soft plaque formation. Heterogeneous appearance of a prominent partially imaged thyroid may represent goiter, nonspecific. Three-vessel coronary calcification noted. Cardiomegaly. No pericardial effusion. Very small bilateral pleural effusions and motion at the bases. Small area of consolidation change at the right posterior recess may represent atelectasis with developing pneumonia not excluded. Mild areas of septal thickening in the lower lobes may represent mild interstitial edema. The central airways are patent. Moderate emphysematous change and hyperinflation. Platelike area of scar atelectasis at the lingula and adjacent left lower lobe. Limited images of the upper abdomen with 2.8 cm low-density focus within the central spleen possible cyst. Visualized osseous structures appear within limits. CT/CTA Chest W/WO Contrast IMPRESSION: No evidence of filling defect to suggest pulmonary embolism. Very small bilateral pleural effusions and motion at the bases. Small area of consolidation change at the right posterior recess may represent atelectasis with developing pneumonia not excluded. Mild areas of septal thickening in the lower lobes may represent mild interstit ial edema. The central airways are patent. Moderate emphysematous change and hyperinflatio n. Atherosclerotic changes at the thoracic aortic arch and descending thoracic aor ta with some areas of soft plaque formation. Three-vessel coronary calcification noted. Cardiomegaly. No pericardial effusio n. Reading Location: [facility]
[2025-01-20] MEDS: MethylPREDNISolone 125 MG/2 ML Vial IV (00:17)
[2025-01-20 00:22] LABS: Allen Test Positive; Base Excess 5 mmol/L (-2 to +2); Bicarbonate 31.6 mmol/L (22-26); Blood Gas Specimen Type ART; Mode Not entered; O2 Delivery Device BiPAP; PO2 83 mmHG (75-100); SITE R Radial; SO2 95 % (95-99); Total Carbon Dioxide 34 mmol/L; pH 7.31 (7.35-7.45)
[2025-01-20] MEDS: Ipratropium/Albuterol Sulfate 3 ML AMPUL.NEB INHALATION ×4 (00:26→19:27)
[2025-01-20 00:58] LABS: Absolute Lymphocyte Count 4.62 X10^3/uL (0.83-4.51); Absolute Neutrophil Count 8.4 X10^3/uL (2.0-7.7); Basophil# 0.08 X10^3/uL; Basophil% 0.6 % (0-1); Eosinophil# 0.12 X10^3/uL; Eosinophils% 0.8 % (0-5); Hematocrit 39.6 % (37-47); Hemoglobin 12.1 g/dL (12.0-15.0); Lymphocyte # 4.62 X10^3/ul (0.83-4.51); Mean Corp Hgb Conc 30.6 g/dL (32-36); Mean Corpuscular Hgb 27.4 pg (27.0-32.0); Mean Corpuscular Volume 89.8 fL (81-99); Monocyte# 1.11 X10^3/uL; Monocyte% 7.7 % (0-10); NRBC Flagged by Analyzer 0 % (0-5); Neutrophil # 8.43 X10^3/uL (2.7-7.7); Neutrophil % 58.4 % (47-70); Platelet Count 287 K/mm3 (150-450); RBC Distribution Width SD 52.7 fl (35.1-43.9); Red Blood Count 4.41 M/mm3 (4.2-5.4); White Blood Count 14.4 K/mm3 (4.4-11.0)
[2025-01-20 00:59] LABS: ALB/GLOB Ratio 0.9 RATIO (0.9-2.4); AST(SGOT) 81 U/L (<=31); Alanine Aminotransfer ALT/SGPT 36 U/L (<=34); Albumin, Serum 3.6 g/dL (3.4-4.8); Alkaline Phosphatase 143 U/L (35-104); Anion Gap 15 (5-15); BUN 10 mg/dL (4-19); BUN/Creat Ratio 8.1 RATIO (10-20); Calcium,Total 10.2 mg/dL (7.6-11.0); Carbon Dioxide 25.7 mmol/L (21.0-32.0); Chloride 97 mmol/L (98-108); Creatinine, Serum 1.24 mg/dL (0.70-1.20); EST Glomerular Filtration Rate 44 (>60); Estimated Creatinine Clearance 34.84 ml/min (50-250); Globulin 4.1 g/dL (2.2-4.2); Glucose 347 mg/dL (70-99); Protein, Total 7.6 g/dL (5.9-8.4); Sodium Level 137 mmol/L (133-145); Total Bilirubin 0.26 mg/dL (0.00-1.30); Troponin T High Sensitivity 52 ng/L (<=14)
[2025-01-20 01:04] LABS: International Normalized Ratio 1.1; Prothrombin Time (Protime)PT. 14.6 SECONDS (11.7-14.9)
[2025-01-20 01:05] LABS: Partial Thromboplast Time 26.9 Seconds (24.1-36.2)
[2025-01-20 01:19] LABS: Lactic Acid 3.4 mmol/L (0.0-2.0)
[2025-01-20 02:16] LABS: Bacteria 0 SEEN /hpf (None Seen); Mucous, Urine 0 SEEN /hpf (<or=2+)
[2025-01-20 02:23] LABS: Glucose, Dipstick 1000 mg/dl (Normal); Ketone-Dipstick Negative (Negative); Leukocyte Esterase-Dipstick Negative /ul (Negative); Nitrite-Dipstick Negative (Negative); Occult Blood-Urine 50 /ul (Negative); Protein-Dipstick 100 mg/dl (Negative); Urine Bilirubin Dipstick Negative (Negative); Urine Urobilinogen Normal (Normal)
[2025-01-20 02:24] LABS: Color, Urine Straw (Yellow); Urine Clarity Clear (Clear)
--- NOTE | 2025-01-20 02:25 | CPS ---
x2 Duoneb total given to pt. in ER
--- NOTE | 2025-01-20 02:25 | EX.ED.DYSGE1 ---
HPI History of Present Illness Chief Complaint: Shortness of Breath Narrative Narrative: Patient is a 80-year-old female past medical history of COPD, CAD, diet, depression, microcytic anemia, chronic kidney disease stage III who presented to the emergency department via EMS with a chief complaint of shortness of breath. Per EMS the patient was noted hypoxic and quite a shortness of breath therefore she was given a DuoNeb and route. When patient arrived she was diaphoretic and hypoxic to 69% on room air with tachypnea therefore she was placed on BiPAP. Patient states that she did take the oral Lasix that I gave her when she was just here recently. States that she has had progressive worsening shortness of breath. [facility] Medical History Fracture of hip, left, closed Coronary artery disease Paronychia of left index finger Vaginal cyst Anxiety Depression Irregular heart beat Multiple thyroid nodules Foraminal stenosis of lumbar region Lumbar spinal stenosis Diabetic retinopathy Colon polyp Thyroid goiter Hyperlipidemia Hypokalemia Microcytic anemia Neurogenic bladder Hypophosphatemia Hypercalcemia Former smoker UTI (urinary tract infection) Iron deficiency anemia Aortic stenosis Hyponatremia Urine retention Chronic renal failure, stage 3 (moderate) Cellulitis and abscess of finger, unspecified Retinopathy Peripheral artery disease Leg weakness, bilateral GERD (gastroesophageal reflux disease) Chronic idiopathic constipation COPD (chronic obstructive pulmonary disease) Polypharmacy Hypertension Carpal tunnel syndrome of right wrist Strain of right rotator cuff capsule Rhinitis Urinary retention with incomplete bladder emptying Vitamin D deficiency Asthma Pruritus Goiter, nontoxic, multinodular Anemia Diabetes Hx of venous thrombosis and embolism History of malignant neoplasm of breast Type 2 diabetes mellitus Home Medications ?Medication ?Instructions ?Recorded ?Last Taken ?Type aspirin 81 mg chewable tablet 81 mg PO DAILY [facility] 01/21/16 01/15/25 History magnesium oxide 400 mg (241.3 mg 400 mg PO BID SUPPLEMENT 08/16/18 01/15/25 History magnesium) tablet metoprolol tartrate 25 mg tablet 25 mg PO BID BLOOD PRESSURE 08/16/18 01/15/25 History pantoprazole 40 mg tablet,delayed 40 mg PO DAILY ACID REFLUX 12/02/19 01/15/25 History release empagliflozin 10 mg tablet 10 mg PO DAILY DIABETES 10/18/20 01/15/25 History (Jardiance) sitagliptin phosphate 50 mg tablet 50 mg PO DAILY DIABETES 10/18/20 01/15/25 History (Januvia) multivitamin 1 tab PO DAILY VITAMIN 12/06/21 01/15/25 History pravastatin 20 mg tablet 20 mg PO DAILY CHOLESTEROL 12/06/21 01/15/25 History ascorbic acid (vitamin C) 250 mg 250 mg PO DAILY SUPPLEMENT 08/13/23 01/15/25 History tablet (Vitamin C) gabapentin 100 mg capsule 100 mg PO QHS NERVE PAIN 08/13/23 01/14/25 History roflumilast 500 mcg tablet 500 mcg PO DAILY COPD 08/13/23 01/15/25 History insulin lispro 100 unit/mL 10 unit subcut TIDAC short acting 12/30/23 01/15/25 History subcutaneous pen (Humalog KwikPen insulin (U-100) Insulin) budesonide 160 mcg-glycopyr 9 2 inh inhalation BID 01/07/25 01/15/25 History mcg-formot 4.8 mcg/actuation HFA inhaler (Breztri Aerosphere) diltiazem HCl 180 mg 180 mg PO DAILY 01/07/25 01/15/25 History capsule,extended release 24 hr, controlled insulin glargine 100 unit/mL (3 20 unit subcut BID 01/07/25 01/15/25 History mL) subcutaneous pen (Lantus Solostar U-100 Insulin) ipratropium bromide 21 mcg (0.03 1 - 2 spray intranasal Q6H PRN 01/07/25 Unknown History %) nasal spray allergy symptoms lancets 28 gauge (TRUEplus Lancets) 01/07/25 Unknown History acetaminophen 500 mg tablet 1,000 mg PO Q6H PRN Pain Score 1-3 01/15/25 Unknown History azelastine 137 mcg (0.1 %) nasal 1 - 2 spray intranasal BID 01/15/25 01/15/25 History spray furosemide 40 mg tablet (Lasix) 40 mg PO DAILY #5 tabs 01/15/25 Unknown Rx mecobalamin (vitamin B12) 1,000 1,000 mcg PO DAILY 01/15/25 01/15/25 History mcg chewable tablet (B12 Active) menthol 0.44 %-zinc oxide 20.6 % 1 applic topical 4X/DAY PRN skin 01/15/25 Unknown History topical ointment (CalaSoothe) irritation netarsudil 0.02 %-latanoprost 1 drp EACH EYE DAILY 01/15/25 01/15/25 History 0.005 % eye drops (Rocklatan) potassium chloride 20 mEq oral 20 meq PO BID #30 ea 01/15/25 Unknown Rx packet psyllium husk 0.4 gram capsule 0.4 g PO DAILY 01/15/25 01/15/25 History (Daily Fiber) tirzepatide 5 mg/0.5 mL 5 mg subcut QWEEK 01/15/25 Unknown History subcutaneous pen injector (Mounjaro) Allergy/AdvReac Type Severity Reaction Status Date / Time adhesive tape (tape) Allergy NEEDS Verified 01/20/25 00:04 FOLLOW-UP amoxicillin Allergy YEAST Verified 01/20/25 00:04 INFECTION cephalexin monohydrate (From Allergy Rash Verified 01/20/25 00:04 Keflex) clopidogrel bisulfate (From Allergy Other Verified 01/20/25 00:04 Plavix) Family History Daughter Breast cancer Father Hypertension Sister Cancer Kidney disease Mother Pancreatic cancer Surgical History History of left hip hemiarthroplasty S/P fine needle aspiration (~10/2020) H/O dilation and curettage (~07/10/20) History of Achilles tendon repair Retinopathy History of lumpectomy of left breast Social History household members: spouse Smoking Status: Former smoker alcohol intake: never substance use type: does not use caffeine: Yes what type of physical activity do you participate in: none seatbelt use: always do you feel safe at home: Yes additional social history: [employer]- retired ROS ROS ED ROS Narrative Review of systems unobtainable from the patient secondary to her tachypnea shortness of breath and answered and 1 word sentences therefore acute care caveat applies EXAM Physical Exam Narrative Exam Narrative: General: Patient lying in bed did appear to be short of breath Head: Atraumatic, normocephalic Eyes: PERRL bilaterally, EOMI bilaterally, no conjunctival injection noted Neck: Soft, supple, trachea midline Cardiovascular: Patient tachycardic with a regular rhythm Respiratory: Diminished breath sounds bilaterally Abdomen: Soft, nondistended, nontender to palpation Extremities: +4/5 strength noted in the bilateral upper and lower extremities, radial pulses +2/4 in the bilateral extremities Neurological: Patient following commands knew that she was in the hospital Skin: Warm, dry, intact no rashes or lesions noted Const Vital Signs: 01/19/25 23:58 01/19/25 23:59 01/20/25 00:05 Temperature 97.1 F L Temperature Source Axillary Pulse Rate 68 Respiratory Rate 30 H Respiratory Effort Labored Accessory Muscle Use Respiratory Pattern Blood Pressure 138/96 H Blood Pressure Mean 110 Pulse Ox 70 100 Oxygen Delivery Method Bi-pap Room Air Oxygen Flow Rate (L/min) Fraction of Inspired Oxygen (FIO2) 01/20/25 00:07 01/20/25 00:12 01/20/25 00:12 Temperature Temperature Source Pulse Rate 148 H 151 H Respiratory Rate 38 H 36 H Respiratory Effort Respiratory Pattern Tachypnea Blood Pressure Blood Pressure Mean Pulse Ox 100 100 100 Oxygen Delivery Method Bi-pap Oxygen Flow Rate (L/min) 60 Fraction of Inspired Oxygen (FIO2) 100 01/20/25 00:14 01/20/25 00:15 01/20/25 00:26 Temperature Temperature Source Pulse Rate 128 H 111 H Respiratory Rate 26 H 22 H Respiratory Effort Respiratory Pattern Tachypnea Blood Pressure Blood Pressure Mean Pulse Ox 100 Oxygen Delivery Method Bi-pap Oxygen Flow Rate (L/min) 60 Fraction of Inspired Oxygen (FIO2) 01/20/25 00:30 01/20/25 00:45 01/20/25 01:00 Temperature Temperature Source Pulse Rate 123 H 107 H 110 H Respiratory Rate 34 H 23 H 19 H Respiratory Effort Respiratory Pattern Blood Pressure 120/60 Blood Pressure Mean 80 Pulse Ox 99 97 100 Oxygen Delivery Method Nasal Cannula Oxygen Flow Rate (L/min) 3 Fraction of Inspired Oxygen (FIO2) 01/20/25 01:00 01/20/25 01:03 01/20/25 01:15 Temperature 97.9 F Temperature Source Temporal Pulse Rate 107 H 106 H 104 H Respiratory Rate 17 22 H 24 H Respiratory Effort Respiratory Pattern Blood Pressure 120/60 Blood Pressure Mean 80 Pulse Ox 98 97 98 Oxygen Delivery Method Nasal Cannula Oxygen Flow Rate (L/min) 3 Fraction of Inspired Oxygen (FIO2) 01/20/25 01:18 01/20/25 01:25 01/20/25 01:31 Temperature Temperature Source Pulse Rate 102 H 115 H Respiratory Rate 18 26 H Respiratory Effort Respiratory Pattern Blood Pressure 120/60 Blood Pressure Mean 78 Pulse Ox 98 98 100 Oxygen Delivery Method Nasal Cannula Oxygen Flow Rate (L/min) 3 Fraction of Inspired Oxygen (FIO2) 01/20/25 01:45 01/20/25 02:00 01/20/25 02:00 Temperature 98.0 F Temperature Source Temporal Pulse Rate 112 H 111 H 112 H Respiratory Rate 24 H 28 H 24 H Respiratory Effort Respiratory Pattern Blood Pressure 139/80 H Blood Pressure Mean 99 Pulse Ox 99 98 100 Oxygen Delivery Method Nasal Cannula Oxygen Flow Rate (L/min) 3 Fraction of Inspired Oxygen (FIO2) MDM MDM MDM Narrative Medical decision making narrative: Patient is a 80-year-old female who came into the emergency department with respiratory distress. On the differential diagnose includes Melamin to COPD exacerbation, pneumonia, pneumothorax, ACS, PE. Once workup is obtained and reviewed she will be reevaluated. Patient will be given 2 more DuoNebs and Solu-Medrol. Patient will not be given 30 cc/kg bolus of IV fluids as there is concern for hypervolemic state. Patient CBC was significant for leukocytosis of 14,000, hemoglobin was 12.1, platelet count was noted to be 287. Patient's arterial blood gas reviewed showed pH 7.31 with a CO2 of 63. Patient sodium was 137, potassium of 4, creatinine was 1.24. Patient's lactic acid elevated 3.4, AST and ALT were 81 and 36 respectively. Patient's troponin was noted to be 52, EKG reviewed and showed sinus tachycardia with a rate of 111 beats per minutes. Delta troponin pending. Patient urinalysis reviewed showed negative nitrites negative leukocyte esterase micro pending. Patient's chest x-ray was reviewed by myself and by radiology showed no acute patient CTA of her chest reviewed and showed no evidence of filling defect to suggest PE very small bilateral pleural effusions and motion at the bases. Small area of consolidation change at the right posterior recess may represent atelectasis with developing pneumonia not excluded. Mild areas of septal thickening in the lower lobes may represent mild incisional edema Central airways are patent moderate emphysematous change and hyperinflated noted. At this point in time will discuss case with hospitalist for admission for acute hypoxic respiratory failure COPD exacerbation. Patient is not on BiPAP at this point time she is on nasal cannula 3 L. Not normally on oxygen. Critical care time 37 minutes Lab Data Labs: Laboratory Results - last 24 hr 01/20/25 01/20/25 00:05 01:58 WBC 14.4 H RBC 4.41 Hgb 12.1 Hct 39.6 MCV 89.8 MCH 27.4 MCHC 30.6 L RDW Std Deviation 52.7 H RDW Coeff of Vijay 16.0 H Plt Count 287 MPV 12.0 Immature Gran % (Auto) 0.500 Neut % (Auto) 58.4 Lymph % (Auto) 32.0 [place] % (Auto) 7.7 Eos % (Auto) 0.8 Baso % (Auto) 0.6 Absolute Neuts (auto) 8.4 H Absolute Lymphs (auto) 4.62 H Nucleated RBC % 0 PT 14.6 INR 1.1 APTT 26.9 Sodium 137 Potassium 4.0 Chloride 97 L Carbon Dioxide 25.7 Anion Gap 15 BUN 10 Creatinine 1.24 H Estim Creat Clear Calc 34.84 L Est GFR (MDRD) Non-Af 44 L BUN/Creatinine Ratio 8.1 L Glucose 347 H Lactic Acid 3.4 H* Calcium 10.2 Total Bilirubin 0.26 AST 81 H ALT 36 H Alkaline Phosphatase 143 H Troponin T High Sens 52 H D Total Protein 7.6 Albumin 3.6 Globulin 4.1 Albumin/Globulin Ratio 0.9 Urine Color Straw Urine Clarity Clear Urine pH 6.0 Ur Specific [place] 1.010 Urine Protein 100 H Urine Glucose (UA) 1000 H Urine Ketones Negative Urine Occult Blood 50 H Urine Nitrite Negative Urine Bilirubin Negative Urine Urobilinogen Normal Ur Leukocyte Esterase Negative ABG Data ABG results: ABG 01/20/25 00:19 Specimen Type ART Sample Site R Radial pH 7.31 L Bicarbonate Actual 31.6 H Total CO2 34 Base Excess 5 H O2 Saturation 95 O2 % 100.0 ABG pCO2 63.0 H ABG pO2 83 Joe Test Positive O2 Delivery Device BiPAP Vent Mode Not entered Clinical Comments Radiography Diagnostic Testing: Clinical Impression(s) from Imaging Studies Chest CTA 01/20/25 00:09 IMPRESSION: No evidence of filling defect to suggest pulmonary embolism. Very small bilateral pleural effusions and motion at the bases. Small area of consolidation change at the right posterior recess may represent atelectasis with developing pneumonia not excluded. Mild areas of septal thickening in the lower lobes may represent mild interstitial edema. The central airways are patent. Moderate emphysematous change and hyperinflation. Atherosclerotic changes at the thoracic aortic arch and descending thoracic aorta with some areas of soft plaque formation. Three-vessel coronary calcification noted. Cardiomegaly. No pericardial effusion. Reading Location: [id number] Discharge Plan Triage Chief Complaint: Shortness of Breath ED Provider: Jeevan Yoder Dx/Rx/DC Orders Prescriptions: No Action Januvia 50 mg tablet 50 mg PO DAILY Jardiance 10 mg tablet 10 mg PO DAILY multivitamin Tablet 1 tab PO DAILY pravastatin 20 mg tablet 20 mg PO DAILY aspirin 81 MG tablet,chewable 81 mg PO DAILY metoprolol tartrate 25 MG tablet 25 mg PO BID magnesium oxide 400 MG tablet 400 mg PO BID pantoprazole 40 MG tablet 40 mg PO DAILY gabapentin 100 mg capsule 100 mg PO QHS roflumilast 500 mcg tablet 500 mcg PO DAILY ascorbic acid (vitamin C) [Vitamin C] 250 mg tablet 250 mg PO DAILY insulin lispro [Humalog KwikPen Insulin] 100 unit/mL Insulin Pen 10 unit subcut TIDAC Rx Instructions: Hold if glucose less than 120 mg/dl Mounjaro 5 mg/0.5 mL pen injector 5 mg subcut QWEEK Patient Comments: PT STATES SHE SOMETIMES TAKES IT ON THURSDAY, SOMETIMES ON FRIDAYS. menthol-zinc oxide [CalaSoothe] 0.44-20.6 % ointment 1 applic topical 4X/DAY PRN (Reason: skin irritation) psyllium husk [Daily Fiber] 0.4 gram capsule 0.4 g PO DAILY mecobalamin (vitamin B12) [B12 Active] 1,000 mcg tablet,chewable 1,000 mcg PO DAILY azelastine 137 mcg (0.1 %) spray,non-aerosol 1 - 2 spray INTRANASAL BID acetaminophen 500 mg Tablet 1,000 mg PO Q6H PRN (Reason: Pain Score 1-3) Rocklatan 0.02-0.005 % Drops 1 drp EACH EYE DAILY potassium chloride 20 mEq packet 20 meq PO BID Qty: 30 0RF furosemide [Lasix] 40 mg tablet 40 mg PO DAILY Qty: 5 0RF diltiazem HCl 180 mg capsule,ext.rel 24h degradable 180 mg PO DAILY ipratropium bromide 21 mcg (0.03 %) spray,non-aerosol 1 - 2 spray INTRANASAL Q6H PRN (Reason: allergy symptoms) insulin glargine [Lantus Solostar U-100 Insulin] 100 unit/mL (3 mL) insulin pen 20 unit subcut BID (DME) lancets [TRUEplus Lancets] 28 gauge misc MISCELLANEOUS Breztri Aerosphere 160-9-4.8 mcg/actuation HFA aerosol inhaler 2 inh inhalation BID Primary Care Provider: Ramone Smiley Referrals: Ramone Smiley MD [Primary Care Provider] - Print Language: Uzbek
[2025-01-20 02:38] LABS: Troponin T High Sens 2 HR 71 ng/L (<=14)
--- NOTE | 2025-01-20 02:41 | PCM.HP.STD ---
[facility] - General General Date of Admission: 01/20/25 Date of Service: 01/20/25 Chief Complaint: SOB. [facility] Narrative OLGA POLLARD, is a 80 F with a past medical history of essential hypertension; on metoprolol twice daily, diltiazem and furosemide, hyperlipidemia; on pravastatin, obesity; with a BMI of 32.2 this admission, DM-2; of unknown control on sitagliptin, empagliflozin, tirzepatide, insulin glargine 20 units SQ twice daily and insulin lispro 10 units AC, diabetic neuropathy; on gabapentin nightly, history of diabetic retinopathy; s/p laser surgery on the Left eye (2005), history of tobacco abuse; with subsequent asthma/COPD on roflumilast, budesonide BID and ipratropium bromide, CAD; on baby aspirin daily, history of aortic stenosis, history of DVT/PE; currently not on anticoagulation, PAD, CKD; stage IIIa, chronic microcytic anemia, history of Left-sided breast cancer; s/p lumpectomy (2003), history of multinodular nontoxic goiter, glaucoma; on netarsudil-latanoprost OU daily, history of neurogenic bladder, history of UTI, history of colon polyp found to be tubular adenoma; s/p snare (2017), history of depression with anxiety; currently not on treatment, chronic constipation; on psyllium husk, GERD; on pantoprazole and OA; s/p Left THR along with foraminal stenosis of lumbar region who presents to [facility] ER complaining of shortness of breath. Ms. Pollard reports her symptoms began approximately 5 days prior to admission with dyspnea on exertion worse than her baseline in spite of recently completing a course of steroids and antibiotics with patient evaluated in the ER here with ER physicians exam at that time revealing lungs clear to auscultation with no rales, wheezes or rhonchi and patient saturating at 98% on room air but with an elevated NT pro-BNP II of 4,224 pg/mL present on admission consistent with AE CHF along with a mildly elevated troponin T of 46 ng/L x 2 with CXR that revealed cardiomegaly with mild congestion and she was subsequently treated with furosemide in house and then discharged on furosemide 40 mg PO daily who now returns complaining of worsening shortness of breath. She states her dyspnea on exertion progressed to shortness of breath at rest on the evening of January 19, 2025 causing her to activate EMS. Squad noted patient was diaphoretic, hypoxic at ~69% on RA with tachypnea and only being able to speak in one-word sentences causing her to be placed on BiPAP. Patient affirms to the ER physician that she took her furosemide as prescribed. In the ER she was noted to have a CTA of the chest with IV contrast that revealed no evidence of filling defect to suggest pulmonary embolism with very small bilateral pleural effusions and motion at the bases with a small area of consolidation of the right posterior recess which may represent atelectasis with developing pneumonia not excluded in addition to mild areas of septal thickening in the lower lobes that may represent interstitial edema with moderate emphysematous change and hyperinflation along with atherosclerotic changes at the thoracic aortic arch and descending thoracic aorta with some areas of soft plaque formation in addition to three-vessel coronary calcification with cardiomegaly and no pericardial effusion with patient subsequently diagnosed with clinical evidence of AE COPD with suspected early RLL Pneumonia and Leukocytosis of 14.4K with Lactic Acidosis of 3.4 mmol/L present on admission all combining to cause Acute Hypoxic and Hypercapnic Respiratory Failure evidenced by ABG pH 7.31/ pCO2 63 mmHg/ PaO2 83 mmHg/ HCO3 31.6 mmol/L at 95% on BiPAP at a rate of 14 with 100% FiO2 in addition to elevated initial troponin T of 52 ng/L increasing to 71 ng/L on second check due to suspected Acute Cardiac Strain and she was then admitted to the PCU for ongoing care for a stay that is expected to extend beyond 2 midnights. [facility] Medical History Fracture of hip, left, closed Coronary artery disease Paronychia of left index finger Vaginal cyst Anxiety Depression Irregular heart beat Multiple thyroid nodules Foraminal stenosis of lumbar region Lumbar spinal stenosis Diabetic retinopathy Colon polyp Thyroid goiter Hyperlipidemia Hypokalemia Microcytic anemia Neurogenic bladder Hypophosphatemia Hypercalcemia Former smoker UTI (urinary tract infection) Iron deficiency anemia Aortic stenosis Hyponatremia Urine retention Chronic renal failure, stage 3 (moderate) Cellulitis and abscess of finger, unspecified Retinopathy Peripheral artery disease Leg weakness, bilateral GERD (gastroesophageal reflux disease) Chronic idiopathic constipation COPD (chronic obstructive pulmonary disease) Polypharmacy Hypertension Carpal tunnel syndrome of right wrist Strain of right rotator cuff capsule Rhinitis Urinary retention with incomplete bladder emptying Vitamin D deficiency Asthma Pruritus Goiter, nontoxic, multinodular Anemia Diabetes Hx of venous thrombosis and embolism History of malignant neoplasm of breast Type 2 diabetes mellitus Home Medications ?Medication ?Instructions ?Recorded ?Last Taken ?Type aspirin 81 mg chewable tablet 81 mg PO DAILY [facility] 01/21/16 01/15/25 History magnesium oxide 400 mg (241.3 mg 400 mg PO BID SUPPLEMENT 08/16/18 01/15/25 History magnesium) tablet metoprolol tartrate 25 mg tablet 25 mg PO BID BLOOD PRESSURE 08/16/18 01/15/25 History pantoprazole 40 mg tablet,delayed 40 mg PO DAILY ACID REFLUX 12/02/19 01/15/25 History release empagliflozin 10 mg tablet 10 mg PO DAILY DIABETES 10/18/20 01/15/25 History (Jardiance) sitagliptin phosphate 50 mg tablet 50 mg PO DAILY DIABETES 10/18/20 01/15/25 History (Januvia) multivitamin 1 tab PO DAILY VITAMIN 12/06/21 01/15/25 History pravastatin 20 mg tablet 20 mg PO DAILY CHOLESTEROL 12/06/21 01/15/25 History ascorbic acid (vitamin C) 250 mg 250 mg PO DAILY SUPPLEMENT 08/13/23 01/15/25 History tablet (Vitamin C) gabapentin 100 mg capsule 100 mg PO QHS NERVE PAIN 08/13/23 01/14/25 History roflumilast 500 mcg tablet 500 mcg PO DAILY COPD 08/13/23 01/15/25 History insulin lispro 100 unit/mL 10 unit subcut TIDAC short acting 12/30/23 01/15/25 History subcutaneous pen (Humalog KwikPen insulin (U-100) Insulin) budesonide 160 mcg-glycopyr 9 2 inh inhalation BID 01/07/25 01/15/25 History mcg-formot 4.8 mcg/actuation HFA inhaler (Breztri Aerosphere) diltiazem HCl 180 mg 180 mg PO DAILY 01/07/25 01/15/25 History capsule,extended release 24 hr, controlled insulin glargine 100 unit/mL (3 20 unit subcut BID 01/07/25 01/15/25 History mL) subcutaneous pen (Lantus Solostar U-100 Insulin) ipratropium bromide 21 mcg (0.03 1 - 2 spray intranasal Q6H PRN 01/07/25 Unknown History %) nasal spray allergy symptoms lancets 28 gauge (TRUEplus Lancets) 01/07/25 Unknown History acetaminophen 500 mg tablet 1,000 mg PO Q6H PRN Pain Score 1-3 01/15/25 Unknown History azelastine 137 mcg (0.1 %) nasal 1 - 2 spray intranasal BID 01/15/25 01/15/25 History spray furosemide 40 mg tablet (Lasix) 40 mg PO DAILY #5 tabs 01/15/25 Unknown Rx mecobalamin (vitamin B12) 1,000 1,000 mcg PO DAILY 01/15/25 01/15/25 History mcg chewable tablet (B12 Active) menthol 0.44 %-zinc oxide 20.6 % 1 applic topical 4X/DAY PRN skin 01/15/25 Unknown History topical ointment (CalaSoothe) irritation netarsudil 0.02 %-latanoprost 1 drp EACH EYE DAILY 01/15/25 01/15/25 History 0.005 % eye drops (Rocklatan) potassium chloride 20 mEq oral 20 meq PO BID #30 ea 01/15/25 Unknown Rx packet psyllium husk 0.4 gram capsule 0.4 g PO DAILY 01/15/25 01/15/25 History (Daily Fiber) tirzepatide 5 mg/0.5 mL 5 mg subcut QWEEK 01/15/25 Unknown History subcutaneous pen injector (Fitzuntrisharo) Allergy/AdvReac Type Severity Reaction Status Date / Time adhesive tape (tape) Allergy NEEDS Verified 01/20/25 00:04 FOLLOW-UP amoxicillin Allergy YEAST Verified 01/20/25 00:04 INFECTION cephalexin monohydrate (From Allergy Rash Verified 01/20/25 00:04 Keflex) clopidogrel bisulfate (From Allergy Other Verified 01/20/25 00:04 Plavix) Family History Daughter Breast cancer Father Hypertension Sister Cancer Kidney disease Mother Pancreatic cancer Surgical History History of left hip hemiarthroplasty S/P fine needle aspiration (~10/2020) H/O dilation and curettage (~07/10/20) History of Achilles tendon repair Retinopathy History of lumpectomy of left breast Social History household members: spouse Smoking Status: Former smoker alcohol intake: never substance use type: does not use caffeine: Yes what type of physical activity do you participate in: none seatbelt use: always do you feel safe at home: Yes additional social history: [employer]- retired ROS ROS Narrative Full review of systems was not possible at this time due to patient's respiratory distress on BiPAP. Vital Signs Vital Signs Vital Signs: 01/19/25 23:58 01/19/25 23:59 01/20/25 00:05 Temperature 97.1 F L Temperature Source Axillary Pulse Rate 68 Respiratory Rate 30 H Respiratory Effort Labored Accessory Muscle Use Respiratory Pattern Blood Pressure 138/96 H Blood Pressure Mean 110 Pulse Ox 70 100 Oxygen Delivery Method Bi-pap Room Air Oxygen Flow Rate (L/min) Fraction of Inspired Oxygen (FIO2) 01/20/25 00:07 01/20/25 00:12 01/20/25 00:12 Temperature Temperature Source Pulse Rate 148 H 151 H Respiratory Rate 38 H 36 H Respiratory Effort Respiratory Pattern Tachypnea Blood Pressure Blood Pressure Mean Pulse Ox 100 100 100 Oxygen Delivery Method Bi-pap Oxygen Flow Rate (L/min) 60 Fraction of Inspired Oxygen (FIO2) 100 01/20/25 00:14 01/20/25 00:15 01/20/25 00:26 Temperature Temperature Source Pulse Rate 128 H 111 H Respiratory Rate 26 H 22 H Respiratory Effort Respiratory Pattern Tachypnea Blood Pressure Blood Pressure Mean Pulse Ox 100 Oxygen Delivery Method Bi-pap Oxygen Flow Rate (L/min) 60 Fraction of Inspired Oxygen (FIO2) 01/20/25 00:30 01/20/25 00:45 01/20/25 01:00 Temperature Temperature Source Pulse Rate 123 H 107 H 110 H Respiratory Rate 34 H 23 H 19 H Respiratory Effort Respiratory Pattern Blood Pressure 120/60 Blood Pressure Mean 80 Pulse Ox 99 97 100 Oxygen Delivery Method Nasal Cannula Oxygen Flow Rate (L/min) 3 Fraction of Inspired Oxygen (FIO2) 01/20/25 01:00 01/20/25 01:03 01/20/25 01:15 Temperature 97.9 F Temperature Source Temporal Pulse Rate 107 H 106 H 104 H Respiratory Rate 17 22 H 24 H Respiratory Effort Respiratory Pattern Blood Pressure 120/60 Blood Pressure Mean 80 Pulse Ox 98 97 98 Oxygen Delivery Method Nasal Cannula Oxygen Flow Rate (L/min) 3 Fraction of Inspired Oxygen (FIO2) 01/20/25 01:18 01/20/25 01:25 01/20/25 01:31 Temperature Temperature Source Pulse Rate 102 H 115 H Respiratory Rate 18 26 H Respiratory Effort Respiratory Pattern Blood Pressure 120/60 Blood Pressure Mean 78 Pulse Ox 98 98 100 Oxygen Delivery Method Nasal Cannula Oxygen Flow Rate (L/min) 3 Fraction of Inspired Oxygen (FIO2) 01/20/25 01:45 01/20/25 02:00 01/20/25 02:00 Temperature 98.0 F Temperature Source Temporal Pulse Rate 112 H 111 H 112 H Respiratory Rate 24 H 28 H 24 H Respiratory Effort Respiratory Pattern Blood Pressure 139/80 H Blood Pressure Mean 99 Pulse Ox 99 98 100 Oxygen Delivery Method Nasal Cannula Oxygen Flow Rate (L/min) 3 Fraction of Inspired Oxygen (FIO2) Weight Weight: 176 lb 2.389 oz Body Mass Index (BMI) 32.2 Physical Exam Const alert and oriented x3 Constitutional Narrative: Mild distress noted. General Appearance: cooperative HEENT normocephalic, head/scalp atraumatic, hearing grossly normal bilaterally and moist oral mucous membranes Eyes PERRL and EOMs intact bilaterally Neck no lymphadenopathy and supple Resp Resp Narrative: Diminished breath sounds throughout. Cardio regular rate and regular rhythm Cardio Narrative: Tachycardia at ~112 bpm noted. GI normal to inspection, nondistended, normoactive bowel sounds, soft to palpation, non-tender and non-distended GI Narrative: Obese. Extremity normal to inspection, full ROM and no clubbing, cyanosis or edema Skin Skin Narrative: Patient has evidence of rash, abscess, wounds or jaundice. Neuro oriented x3, CN's II-XII intact bilaterally, moves all extremities and no focal motor deficits Sensorium / Orientation: awake, alert, oriented to person, oriented to place and oriented to time Speech: speech normal Psych affect normal Results Medical Records Data Attestation: I reviewed the patient's medical records Lab / Micro Data Attestation: I reviewed the patient's lab results. 01/20/25 00:05 01/20/25 00:05 Labs: Laboratory Results - last 24 hr 01/20/25 00:05: WBC 14.4 H, RBC 4.41, Hgb 12.1, Hct 39.6, MCV 89.8, MCH 27.4, MCHC 30.6 L, RDW Std Deviation 52.7 H, RDW Coeff of Vijay 16.0 H, Plt Count 287, MPV 12.0, Immature Gran % (Auto) 0.500, Neut % (Auto) 58.4, Lymph % (Auto) 32.0, [place] % (Auto) 7.7, Eos % (Auto) 0.8, Baso % (Auto) 0.6, Absolute Neuts (auto) 8.4 H, Absolute Lymphs (auto) 4.62 H, Nucleated RBC % 0, PT 14.6, INR 1.1, APTT 26.9, Sodium 137, Potassium 4.0, Chloride 97 L, Carbon Dioxide 25.7, Anion Gap 15, BUN 10, Creatinine 1.24 H, Estim Creat Clear Calc 34.84 L, Est GFR (MDRD) Non-Af 44 L, BUN/Creatinine Ratio 8.1 L, Glucose 347 H, Lactic Acid 3.4 H*, Calcium 10.2, Total Bilirubin 0.26, AST 81 H, ALT 36 H, Alkaline Phosphatase 143 H, Troponin T High Sens 52 H D, Total Protein 7.6, Albumin 3.6, Globulin 4.1, Albumin/Globulin Ratio 0.9 01/20/25 01:58: Urine Color Straw, Urine Clarity Clear, Urine pH 6.0, Ur Specific [place] 1.010, Urine Protein 100 H, Urine Glucose (UA) 1000 H, Urine Ketones Negative, Urine Occult Blood 50 H, Urine Nitrite Negative, Urine Bilirubin Negative, Urine Urobilinogen Normal, Ur Leukocyte Esterase Negative 01/20/25 02:10: Troponin T Hi Sens 2 Hr 71 H* ABG Data ABG results: ABG 01/20/25 00:19 Specimen Type ART Sample Site R Radial pH 7.31 L Bicarbonate Actual 31.6 H Total CO2 34 Base Excess 5 H O2 Saturation 95 O2 % 100.0 ABG pCO2 63.0 H ABG pO2 83 Joe Test Positive O2 Delivery Device BiPAP Vent Mode Not entered Clinical Comments Imaging Radiology Impression Chest CTA 01/20/25 00:09 IMPRESSION: No evidence of filling defect to suggest pulmonary embolism. Very small bilateral pleural effusions and motion at the bases. Small area of consolidation change at the right posterior recess may represent atelectasis with developing pneumonia not excluded. Mild areas of septal thickening in the lower lobes may represent mild interstitial edema. The central airways are patent. Moderate emphysematous change and hyperinflation. Atherosclerotic changes at the thoracic aortic arch and descending thoracic aorta with some areas of soft plaque formation. Three-vessel coronary calcification noted. Cardiomegaly. No pericardial effusion. Reading Location: [id number] Assessment & Plan Assessment/Plan (1) Pneumonia: QUALIFIERS: Laterality: right Lung location: lower lobe of lung Pneumonia type: due to unspecified organism Qualified Code(s): J18.9 - Pneumonia, unspecified organism (2) COPD exacerbation: (3) Leukocytosis: QUALIFIERS: Leukocytosis type: unspecified Qualified Code(s): D72.829 - Elevated white blood cell count, unspecified (4) Lactic acidosis: (5) CHF exacerbation: QUALIFIERS: Heart failure type: unspecified Qualified Code(s): I50.9 - Heart failure, unspecified (6) Acute hypoxic on chronic hypercapnic respiratory failure: (7) Elevated troponin: (8) Obesity (BMI 30.0-34.9): PLAN: Plan 1. Suspected RLL Pneumonia on CTA of chest with IV contrast this admission with Leukocytosis of 14.4K with Lactic Acidosis of 3.4 mmol/L present on admission concerning for possible early Sepsis - Admit to PCU. Continue IV levofloxacin begun in the ER and await culture and sensitivity data. Avoid fluid bolus with sepsis protocol due to #3. Check urinary antigens to Streptococcus pneumonia and Legionella. Give scheduled guaifenesin twice daily. Give acetaminophen as needed for [id number] (level 1-5/10) pain or fever. Give morphine IV prn for severe (level 6-10/10) pain. 2. AE asthma/COPD attributable to #1 - Maintain methylprednisolone 60 mg IV twice daily. Give scheduled and as needed nebulizers. 3. AE CHF; of uncertain type with elevated NT pro-BNP II of 9,499 pg/mL complicating #1 & #2 - Give furosemide IV daily and check NT pro-BNP II daily to follow trend. 4. Acute Hypoxic and Hypercapnic Respiratory Failure evidenced by ABG pH 7.31/ pCO2 63 mmHg/ PaO2 83 mmHg/ HCO3 31.6 mmol/L at 95% on BiPAP at a rate of 14 with 100% FiO2 due to #1 - #3 - Wean BiPAP as tolerated. 4. Elevated initial troponin T of 52 ng/L increasing to 71 ng/L on second check due to suspected Acute Cardiac Strain arising from #1 - #3 in the setting of known CAD - Continue BASA. Check echocardiogram to evaluate LVEF. 5. Recent evaluation here in the ER on January 15, 2025 with dyspnea on exertion worse than her baseline in spite of recently completing a course of steroids and antibiotics with patient evaluated in the ER here with ER physicians exam at that time revealing lungs clear to auscultation with no rales, wheezes or rhonchi and patient saturating at 98% on room air but with an elevated NT pro-BNP II of 4,224 pg/mL present on admission consistent with AE CHF along with a mildly elevated troponin T of 46 ng/L x 2 with CXR that revealed cardiomegaly with mild congestion and she was subsequently treated with furosemide in house and then discharged on furosemide 40 mg PO daily - Noted with repeat NT pro-BNP II pending at this time. 6. Obesity; with a BMI of 32.2 this admission adding to the burden of disease outlined from #1 - #5 - Weight loss will be recommended. Check TSH. This complicates her case and may hamper recovery. 7. Essential hypertension; on metoprolol twice daily, diltiazem and furosemide - Hold scheduled antihypertensives in light of blood pressure of 105/88 mmHg noted shortly after admission with possible sepsis outlined in #1. 8. Hyperlipidemia; on pravastatin - Resume statin and check lipid profile. 9. DM-2; of unknown control on sitagliptin, empagliflozin, tirzepatide, insulin glargine 20 units SQ twice daily and insulin lispro 10 units AC - Keep NPO for now. Check FSBS q. 6 hours plus SSI. Check HgbA1c to objectively evaluate quality of diabetic control. 10. Diabetic neuropathy; on gabapentin nightly - Continue gabapentin as previous. 11. History of diabetic retinopathy; s/p laser surgery on the Left eye (2005) - Noted. 12. History of aortic stenosis - Echocardiogram pending this admission for #4. 13. History of DVT/PE; currently not on anticoagulation - Noted with no evidence of recurrence at this time. 14. PAD - Stable. 15. CKD; stage IIIa - Renal function slightly worse than normal with serum creatinine of 1.24 mg/dL and BUN of 10 mg/dL with eGFR of 44 mL/min this admission. 16. Chronic microcytic anemia - Stable with hemoglobin of 12.1 g/dL and MCV of 89.8 fL present on admission. 17. History of Left-sided breast cancer; s/p lumpectomy (2003) - Noted with no signs of recurrence. 18. History of multinodular nontoxic goiter - Noted. Check TSH. 19. Glaucoma; on netarsudil-latanoprost OU daily - Current therapy to continue as before. 20. History of neurogenic bladder - Stable. 21. History of UTI - Noted UA negative for infection this admission. 22. History of colon polyp found to be tubular adenoma; s/p snare (2017) - Noted. 23. History of depression with anxiety; currently not on treatment - Stable. 24. Chronic constipation; on psyllium husk - Maintain current regimen. 25. GERD; on pantoprazole - Resume PPI. 26. OA; s/p Left THR along with foraminal stenosis of lumbar region - Stable. Give acetaminophen as outlined #1. 27. DVT prophylaxis - Heparin 5,000U sq BID plus SCD's. Total time: Approximately (but not less than) 75 minutes. Sepsis Attestation Sepsis Attestation: Sepsis Ruled Out Date exam was performed: 01/20/25 Time exam was performed: 03:35 Possible Source of Sepsis: Pulmonary Sepsis Organ Dysfunction Criteria Present: Acute Respiratory Failure (New need for BiPAP/CPAP or MV) and Lactic Acid > 2 mmol/L Fluid Resuscitation Fluid resuscitation indicated?: Yes Fluid Resuscitation ordered: Lesser volume fluid bolus ordered Amount of fluid ordered: 1 Reason for lesser fluid bolus:: Concern for fluid overload and Heart failure Sepsis Note Date exam was performed: 01/20/25 Time exam was performed: 07:00 Sepsis Attestation: Sepsis re-evaluation was performed Response to fluids: Fluid responsive hypotension Charges/Coding Visit Charges Inpatient E&M: 94458 Init Hosp L3
[2025-01-20 03:00] LABS: Red Blood Cells-Urine 5-10 SEEN /hpf (0-5); White Blood Cells 0-5 SEEN /hpf (0-5)
[2025-01-20 03:01] LABS: Squamous Epithelial Cells - UA 5-10 SEEN /hpf (5-10)
[2025-01-20] MEDS: levoFLOXacin IV 750 MG/150 ML BAG 100 MG IV (03:22)
[2025-01-20] MEDS: Albuterol 2.5 MG/3 ML VIAL.NEB. INHALATION ×2 (03:25→14:57)
--- NOTE | 2025-01-20 04:12 | ECHOD_ITS ---
Reason For Study Reason For Study: OTHER (NOTED ELEV. TROPONINS & LORNA 1.7CM2) Procedure This was a 2D Doppler, Color Flow transthoracic echocardiogram. The study was technically limited. The study was technically difficult. PT on CPAP/BIPAP due to SOB/dyspnea. Exam performed portable in patient room. Left Ventricle Mildly dilated left ventricle. The estimated ejection fraction is 35-40 %. There is evidence of diastolic dysfunction. There is moderate global hypokinesis of the left ventricle. Right Ventricle Normal RV size. Normal systolic function. Atria The left and right atria are normal. Mitral Valve There is no mitral valve stenosis. Trivial mitral valve insufficiency. Tricuspid Valve There is no tricuspid stenosis. Unable to estimate RV systolic pressure due to insufficient tricuspid regurgitant envelope. Trivial tricuspid valve insufficiency. Aortic Valve Trisinus/trileaflet aortic valve. Mild aortic stenosis. Trivial aortic valve insufficiency. Pulmonic Valve There is no pulmonic valvular stenosis. No pulmonic valve insufficiency. Great Vessels Normal aortic root. Pericardium/Pleural No pericardial effusion. MMode/2D Measurements & Calculations LVIDd: 4.9 cm IVSd: 1.0 cm LVOT diam: 2.0 cm LVIDs: 4.2 cm LVPWd: 1.2 cm LVOT area: 3.2 cm2 RVDd: 3.7 cm FS: 14.1 % Ao root diam: 3.7 cm LVAd ap4: 26.2 cm2 LVAd ap2: 25.1 cm2 LVLd ap4: 7.3 cm LVLd ap2: 8.2 cm EDV(MOD-sp4): 79.6 ml EDV(MOD-sp2): 67.5 ml EDV(sp4-el): 80.0 ml EDV(sp2-el): 65.3 ml LVAs ap4: 21.5 cm2 LVAs ap2: 20.5 cm2 LVLs ap4: 7.0 cm LVLs ap2: 7.5 cm ESV(MOD-sp4): 56.5 ml ESV(MOD-sp2): 48.5 ml ESV(sp4-el): 56.4 ml ESV(sp2-el): 47.5 ml EF(MOD-sp4): 29.0 % EF(MOD-sp2): 28.1 % EF(sp4-el): 29.5 % SV(MOD-sp4): 23.1 ml SV(MOD-sp2): 19.0 ml SV(sp4-el): 23.6 ml SI(MOD-sp4): 12.8 ml/m2 SI(MOD-sp2): 10.5 ml/m2 LA dimension(2D): 4.8 cm TAPSE: 2.1 cm Time Measurements MV dec time: 0.10 sec Doppler Measurements & Calculations MV E max pino: 114.0 cm/sec Lat Peak E' Pino: 3.0 cm/sec Med Peak E' Pino: 2.2 cm/sec MV A max pino: 135.9 cm/sec E/E' lat: 37.6 E/E' med: 52.0 MV E/A: 0.84 Ao V2 max: 229.7 cm/sec LV V1 max: 80.9 cm/sec MR max pino: 500.4 cm/sec Ao max P.1 mmHg LV V1 max P.6 mmHg MR max P.2 mmHg Ao V2 mean: 171.2 cm/sec LV V1 mean P.5 mmHg MR mean pino: 407.5 cm/sec Ao mean P.8 mmHg LV V1 mean: 59.0 cm/sec MR mean P.1 mmHg Ao V2 VTI: 51.1 cm LV V1 VTI: 17.8 cm MR VTI: 168.4 cm AV (velocity ratio): 0.35 LORNA(I,D): 1.1 cm2 LORNA(V,D): 1.1 cm2 SV(LVOT): 57.2 ml PA V2 max: 94.4 cm/sec PA V2 mean: 60.2 cm/sec ECHO/Echo Complete Interpretation Summary Mildly dilated left ventricle. The estimated ejection fraction is 35-40 %. There is evidence of diastolic dysfunction. There is moderate global hypokinesis of the left ventricle. Trivial mitral valve insufficiency. Mild aortic stenosis. Trivial aortic valve insufficiency. Ordering Physician: Sandeep Carlton Referring Physician: Ramone Smiley Performed By: Margot Cleary RDCS, RVT
[2025-01-20 04:25] LABS: Allen Test Positive; Base Excess 5 mmol/L (-2 to +2); Bicarbonate 30.8 mmol/L (22-26); Blood Gas Specimen Type ART; Mode Not entered; O2 Delivery Device BiPAP; PEEP 8; PO2 37 mmHG (75-100); RR 14; SITE R Radial; SO2 66 % (95-99); Total Carbon Dioxide 33 mmol/L; pCO2 56.2 mmHg (35-45); pH 7.35 (7.35-7.45)
[2025-01-20 04:31] LABS: Reflex Lactate? Y
[2025-01-20] MEDS: 0.9% Normal Saline (1000mL) 1,000 ML 999 ML IV (05:26)
[2025-01-20 05:48] LABS: Troponin T High Sens 4 HR 94 ng/L (<=14)
[2025-01-20 05:56] LABS: Cholesterol 140 mg/dL (<=200); High Density Lipoprotein 49 mg/dL; Low Density Lipoprotein Calc. 79 mg/dL; Pro- Brain NATRIURETIC PEPTIDE 9449 pg/mL (<=1800); Thyroid Stim Hormone (TSH) 0.492 uIU/mL (0.300-4.200); Triglycerides 62 mg/dL; Very Low Density Lipoprotein 12 mg/dL (5-40); cholesterol:hdl ratio screen 2.89
[2025-01-20 06:24] LABS: Hemoglobin A1c 10.6 % (<=5.6)
[2025-01-20] MEDS: 0.9% Saline Lock 10 ML Syringe IV ×3 (06:56→16:47)
[2025-01-20] MEDS: Furosemide 40 MG/4 ML Vial IV ×2 (06:56→11:41)
[2025-01-20] MEDS: Potassium Chloride Oral Tablet 20 MEQ PO (08:37)
[2025-01-20] MEDS: Furosemide 20 MG Tablet PO (08:37)
[2025-01-20] MEDS: Aspirin 81 MG TAB.CHEW PO (08:37)
[2025-01-20] MEDS: ROFLUMILAST 500 MCG TABLET PO (08:38)
[2025-01-20] MEDS: Multivitamins,Therapeutic Tablet 1 TABLET PO (08:38)
[2025-01-20] MEDS: Cyanocobalamin 500 MCG Tablet 1000 MCG PO (08:39)
[2025-01-20] MEDS: Ascorbic Acid 500 MG Tablet 250 MG PO (08:39)
[2025-01-20] MEDS: Magnesium Chloride 64 MG Delay Rel.Tablet 128 MG PO ×2 (08:39→21:04)
[2025-01-20] MEDS: Pantoprazole Sodium 40 MG Tablet PO (08:39)
[2025-01-20] MEDS: guaiFENesin 600 MG Tablet PO ×2 (08:39→21:08)
[2025-01-20] MEDS: Heparin Injection (Vial) 5,000 UNIT/ML VIAL 5000 UNIT SC ×2 (08:40→21:03)
[2025-01-20] MEDS: Azelastine HCl NASAL.SRY 2 SPRAY NASAL ×2 (08:41→21:02)
[2025-01-20] MEDS: MethylPREDNISolone 125 MG/2 ML Vial 60 MG IV ×2 (08:45→21:06)
[2025-01-20 09:52] LABS: Reflex Lactate? Y
--- NOTE | 2025-01-20 11:19 | PCM.HOSP.N ---
Hospitalist Note Patient was seen and examined today, made the decision to change the patient to Airvo, patient was admitted for suspected right lower lobe pneumonia and exacerbation of COPD, she remained on aerosol treatments, IV Solu-Medrol, and IV levofloxacin.
[2025-01-20] MEDS: Insulin Glargine-YFGN 100 UNIT/ML Pen 12 UNIT SC ×2 (11:39→21:11)
[2025-01-20 11:53] LABS: Lactic Acid 1.7 mmol/L (0.0-2.0)
--- NOTE | 2025-01-20 12:00 | CASEMGMT ---
SHAWANDA BURROUGHS Face to Face with patient for initial transition planning/care coordination assessment. SHAWANDA BURROUGHS introduced self and role at [facility]. Patient lying in bed, alert and oriented, son at beside. Patient willing to participate in assessment and is able to answer all questions appropriately. Care providers, pharmacy, and demographics verified. Strata: 3 PCP: Baljit Specialists:CHIARA Preferred Pharmacy:[facility] Insurance: [employer] Prescription Benefit: yes Living Will/HPOA: yes, Sarita Pollard LNOK: , son Living Arrangements: Patient lives with and son in a 2 story duplex, bed and bath are on the first floor, no steps to enter. Patient states she was independent at home. Transportation: son DME/HHC: Patient has tub bench, grab bars, raised toilet, walker, and glucometer with supplies at home. No previous SNF. Has had [facility]HC in the past. Will monitor for home oxygen at discharge, prefers [employer]. Patient wishes to discharge home with C and prefers [facility], declined list, therapy eval still pending. Patient states she has no further needs or concerns at this time. SHAWANDA BURROUGHS called and made referral to [facility], awaiting acceptance. CM to follow for discharge planning needs that may arise. Disposition Plan: Patient to discharge home with HHC, family support, and follow-up plans in place. Marley LAYTON, RN, CM
[2025-01-20 12:25] LABS: Bedside Glucose 338 mg/dL (74-106)
[2025-01-20] MEDS: Insulin Lispro 100 UNIT/ML INSULN.PEN SC ×3 (14:14→21:11)
[2025-01-20] MEDS: NETARSUDIL MESYLAT/LATANOPROST 2.5 ML DROPS 1 DRP EACH EYE (14:16)
[2025-01-20] MEDS: hydrOXYzine PAM 25 MG Capsule 50 MG PO (15:08)
--- NOTE | 2025-01-20 15:21 | CHAPLAIN ---
Type of Pastoral Visit _x__ Initial Visit ___ Follow-up Visit ___ On-call Visit ___ General Patient Visit ___ Spiritual Assessment ___ Family Conference ___ Bereavement ___ Rapid Response ___ Code Blue ___ Other (describe below) Pastoral Care Referral From _x__ Patient ___ Family _x__ Nurse ___ Physician ___ Instructional Materials Director ___ Representative Personal Service ___ Other (describe below) Sacrament/Intervention ___ Active listening ___ Anointing ___ Anabaptist ___ Bereavement ___ Communion _x__ Kristal exploration ___ ___ Life review _x__ Prayer ___ Reconciliation ___ Sacrament of Sick _x__ Supportive presence ___ Wedding ___ Other (describe below) Pastoral Comments at first attempt the patient was experiencing shortness of breath and the nurse asked for mems device scientist to return in a few minutes; later this mems device scientist returned, patient was doing better, nurse was still present but then left the room for this visit; pt immediately starts an audible prayer and this mems device scientist joins in for her support; prayer continued for some time and patient repeated several times that she was thankful for the intervention, care, ongoing presence of Wood with her, and asked for God's healing and help; stayed with the patient and offered calm affirmation and support; asked patient about her family and friend support which she has although somewhat limited; as patient was calm and stating that she was feeling better, then this mems device scientist left the room
--- NOTE | 2025-01-20 15:39 | CASEMGMT ---
Addendum entered by Marley Pastor 01/20/25 15:46: Received call back from [facility] and they are willing to accept with anticipated start of care for Thursday. RN CM updated patient of acceptance. Discharge plan updated and green sheet placed on chart. Original Note: RN MANJEET received call back from [facility] they are anticipating accepting but would like re eval on Thursday. CM will continue to follow this patient and plan for a safe discharge.
[2025-01-20] MEDS: Ipratropium Bromide 0.06% NASAL SPRAY 1 SPRAY NASAL (16:05)
[2025-01-20] MEDS: Furosemide 100 MG/10 ML Vial 60 MG IV (16:47)
--- NOTE | 2025-01-20 16:57 | PCM.HOSP.N ---
Hospitalist Note Patient continues to have respiratory distress on PCU, she is intolerant of BiPAP-she acts very anxious. I have ordered an arterial blood gas on the patient and for closer monitoring I have decided to move her to the ICU at this time. Patient is a full code and would want intubated if necessary.
[2025-01-20 16:58] LABS: Allen Test Positive; Base Excess 10 mmol/L (-2 to +2); Bicarbonate 35.5 mmol/L (22-26); Blood Gas Specimen Type ART; Mode ST; O2 Delivery Device BiPAP; PEEP 8; PO2 21 mmHG (75-100); RR 14; SITE R Radial; SO2 32 % (95-99); Time Given 16:55:40; Total Carbon Dioxide 37 mmol/L; pCO2 59.4 mmHg (35-45); pH 7.38 (7.35-7.45)
[2025-01-20 19:40] LABS: Bedside Glucose 361 mg/dL (74-106)
[2025-01-20 19:40] LABS: Bedside Glucose 389 mg/dL (74-106)
[2025-01-20] MEDS: Pravastatin 20 MG Tablet PO (21:05)
[2025-01-20] MEDS: Gabapentin 100 MG Capsule PO (21:17)
[2025-01-20 21:54] LABS: Bedside Glucose 265 mg/dL (74-106)
[2025-01-21] VITALS (30 sets, daily range): BP systolic 101–142; BP diastolic 52–94; PULSE 76–106; RESP 12–28; TEMP 35.9–36.6; O2SAT 95–100; BMI 29.7
--- NOTE | 2025-01-21 02:27 | CPS ---
RN notified CLIENT PARTNER that patient was placed on BIPAP due to becoming increasingly SOB
[2025-01-21] MEDS: 0.9% Saline Lock 10 ML Syringe IV ×3 (04:40→21:02)
[2025-01-21 04:50] LABS: Absolute Lymphocyte Count 0.79 X10^3/uL (0.83-4.51); Absolute Neutrophil Count 9.1 X10^3/uL (2.0-7.7); Hemoglobin 10.8 g/dL (12.0-15.0); Lymphocyte # 0.79 X10^3/ul (0.83-4.51); Lymphocyte % 7.7 % (19-41); Mean Corp Hgb Conc 30.9 g/dL (32-36); Mean Corpuscular Hgb 27.4 pg (27.0-32.0); Mean Corpuscular Volume 88.8 fL (81-99); Monocyte# 0.36 X10^3/uL; Monocyte% 3.5 % (0-10); NRBC Flagged by Analyzer 0 % (0-5); Neutrophil % 88.4 % (47-70); Platelet Count 245 K/mm3 (150-450); RBC Distribution Width SD 51.8 fl (35.1-43.9); Red Blood Count 3.94 M/mm3 (4.2-5.4); White Blood Count 10.3 K/mm3 (4.4-11.0)
[2025-01-21 05:13] LABS: Pro- Brain NATRIURETIC PEPTIDE 21546 pg/mL (<=1800)
[2025-01-21 05:15] LABS: Anion Gap 14 (5-15); BUN 23 mg/dL (4-19); BUN/Creat Ratio 19.6 RATIO (10-20); Calcium,Total 9.8 mg/dL (7.6-11.0); Carbon Dioxide 24.3 mmol/L (21.0-32.0); Chloride 99 mmol/L (98-108); Creatinine, Serum 1.19 mg/dL (0.70-1.20); EST Glomerular Filtration Rate 46 (>60); Estimated Creatinine Clearance 36.45 ml/min (50-250); Glucose 208 mg/dL (70-99); Sodium Level 138 mmol/L (133-145)
--- NOTE | 2025-01-21 05:55 | RAD_ITS ---
PROCEDURE: CHEST 1 VIEW (PORTABLE) 01/21/2025 REASON FOR EXAM: RLL PNEUMONIA AND AECOPD TECHNIQUE: Frontal view of the chest. COMPARISON: 01/15/2025 FINDINGS: New appearing [id number] ill-defined perihilar opacity at the left upper lobe may represent developing infiltrate or less likely an asymmetric edema pattern. Bilateral medial retrocardiac lower lobe streaky opacities not significantly changed. No pleural effusions identified. Cardiac silhouette is at the upper limits for technique. Atherosclerotic change again noted at the aortic arch. RAD/Chest 1 View (Portable) IMPRESSION: New appearing [id number] ill-defined perihilar opacity at the left upper lobe may represent developing infiltrate or less likely an asymmetric edema pattern. Bilateral medial retrocardiac lower lobe st reaky opacities not significantly changed. No pleural effusions identified. Reading Location: [id number]
[2025-01-21] MEDS: Ipratropium/Albuterol Sulfate 3 ML AMPUL.NEB INHALATION ×3 (07:16→19:24)
[2025-01-21] MEDS: Magnesium Chloride 64 MG Delay Rel.Tablet 128 MG PO ×2 (08:24→21:07)
[2025-01-21] MEDS: guaiFENesin 600 MG Tablet PO ×2 (08:25→21:06)
[2025-01-21] MEDS: Aspirin 81 MG TAB.CHEW PO (08:25)
[2025-01-21] MEDS: Ascorbic Acid 500 MG Tablet 250 MG PO (08:26)
[2025-01-21] MEDS: Multivitamins,Therapeutic Tablet 1 TABLET PO (08:26)
[2025-01-21] MEDS: Potassium Chloride Oral Tablet 20 MEQ PO ×2 (08:27→16:51)
[2025-01-21] MEDS: ROFLUMILAST 500 MCG TABLET PO (08:27)
[2025-01-21] MEDS: Pantoprazole Sodium 40 MG Tablet PO (08:27)
[2025-01-21 08:28] LABS: Bedside Glucose 202 mg/dL (74-106)
[2025-01-21] MEDS: Psyllium 1 PACKET PO (08:28)
[2025-01-21] MEDS: Cyanocobalamin 500 MCG Tablet 1000 MCG PO (08:28)
[2025-01-21] MEDS: Insulin Lispro 100 UNIT/ML INSULN.PEN SC ×4 (08:29→20:59)
[2025-01-21] MEDS: Azelastine HCl NASAL.SRY 2 SPRAY NASAL ×2 (08:29→21:00)
[2025-01-21] MEDS: Insulin Glargine-YFGN 100 UNIT/ML Pen 12 UNIT SC ×2 (08:31→20:59)
[2025-01-21] MEDS: Furosemide 40 MG/4 ML Vial IV ×2 (09:31→17:44)
[2025-01-21] MEDS: Heparin Injection (Vial) 5,000 UNIT/ML VIAL 5000 UNIT SC ×2 (09:31→21:00)
[2025-01-21] MEDS: MethylPREDNISolone 125 MG/2 ML Vial 60 MG IV ×2 (09:31→21:00)
[2025-01-21] MEDS: NETARSUDIL MESYLAT/LATANOPROST 2.5 ML DROPS 1 DRP EACH EYE (09:32)
--- NOTE | 2025-01-21 10:39 | PCM.PROGNOTE ---
Subjective Subjective Patient seen and examined. She is on 2 L of oxygen. She said she felt much better and felt her breathing had improved. She denied any chest pain, palpitations, dizziness, nausea or vomiting. Review of systems otherwise negative. Objective Data Objective Data Vital Signs: Vital Signs Temp Pulse Resp BP Pulse Ox O2 Del Method O2 Flow Rate 97.8 F 102 H 15 101/78 100 Nasal Cannula 2 01/21/25 08:00 01/21/25 10:00 01/21/25 10:00 01/21/25 10:00 01/21/25 10:00 01/21/25 10:00 01/21/25 10:00 FiO2 25 01/21/25 05:00 Oxygen Flow Rate (L/min) 2 Oxygen Delivery Method Nasal Cannula Weight: 167 lb 12.8 oz Body Mass Index (BMI) 29.7 Intake & Output: Intake and Output for Last 24 Hours 01/19/25 01/20/25 01/21/25 23:59 23:59 23:59 Intake Total 1419.25 / 1419.25 Output Total 2350 / 3250 1225 / 1225 Balance -930.75 / -1830.75 -1225 / -1225 Lab / Micro Data 01/21/25 04:38 01/21/25 04:38 Labs: Laboratory Results - last 24 hr 01/20/25 10:58: Lactic Acid 1.7 01/20/25 11:38: POC Glucose 338 H 01/20/25 14:13: POC Glucose 389 H 01/20/25 16:50: POC Glucose 361 H 01/20/25 21:10: POC Glucose 265 H 01/21/25 04:38: WBC 10.3, RBC 3.94 L, Hgb 10.8 L, Hct 35.0 L, MCV 88.8, MCH 27.4, MCHC 30.9 L, RDW Std Deviation 51.8 H, RDW Coeff of Vijay 16.0 H, Plt Count 245, MPV 11.0, Immature Gran % (Auto) 0.400, Neut % (Auto) 88.4 H, Lymph % (Auto) 7.7 L, Concho % (Auto) 3.5, Eos % (Auto) 0.0, Baso % (Auto) 0.0, Absolute Neuts (auto) 9.1 H, Absolute Lymphs (auto) 0.79 L, Nucleated RBC % 0, Sodium 138, Potassium 4.0, Chloride 99, Carbon Dioxide 24.3, Anion Gap 14, BUN 23 H, Creatinine 1.19, Estim Creat Clear Calc 36.45 L, Est GFR (MDRD) Non-Af 46 L, BUN/Creatinine Ratio 19.6, Glucose 208 H, Calcium 9.8, [place] [address] H 01/21/25 08:06: POC Glucose 202 H Micro: Microbiology 01/20/25 01:58 Urine, Catheterized Urine Culture - Preliminary Gram negative wes 01/20/25 04:35 Mucosa - Nasopharyngeal Respiratory Panel (PCR) - Final 01/20/25 01:58 Urine Catheter - Serna Legionella Antigen - Final 01/20/25 01:58 Urine Catheter - Serna Streptococcus pneumoniae Antigen (M - Final ABG Data ABG results: ABG 01/20/25 16:54 Specimen Type ART Sample Site R Radial pH 7.38 Bicarbonate Actual 35.5 H Total CO2 37 Base Excess 10 H O2 Saturation 32 L O2 % 30.0 ABG pCO2 59.4 H ABG pO2 21 L* Joe Test Positive Respiration Rate 14 O2 Delivery Device BiPAP Vent Mode ST Tidal Volume 500.0 POC PEEP 8 Crit Call To/Read Back Yes Blood Gas Notified Whom tereletsky Blood Gas Notified Time 16:55:40 Radiography Diagnostic Testing: Radiology Impression Chest CTA 01/20/25 00:09 IMPRESSION: No evidence of filling defect to suggest pulmonary embolism. Very small bilateral pleural effusions and motion at the bases. Small area of consolidation change at the right posterior recess may represent atelectasis with developing pneumonia not excluded. Mild areas of septal thickening in the lower lobes may represent mild interstitial edema. The central airways are patent. Moderate emphysematous change and hyperinflation. Atherosclerotic changes at the thoracic aortic arch and descending thoracic aorta with some areas of soft plaque formation. Three-vessel coronary calcification noted. Cardiomegaly. No pericardial effusion. Reading Location: [id number] Echocardiogram 01/20/25 04:12 Interpretation Summary Mildly dilated left ventricle. The estimated ejection fraction is 35-40 %. There is evidence of diastolic dysfunction. There is moderate global hypokinesis of the left ventricle. Trivial mitral valve insufficiency. Mild aortic stenosis. Trivial aortic valve insufficiency. Ordering Physician: Sandeep Carlton Referring Physician: Ramone Smiley Performed By: Margot Cleary, DALIA, RVT Chest X-Ray 01/21/25 05:55 IMPRESSION: New appearing [id number] ill-defined perihilar opacity at the left upper lobe may represent developing infiltrate or less likely an asymmetric edema pattern. Bilateral medial retrocardiac lower lobe streaky opacities not significantly changed. No pleural effusions identified. Reading Location: [facility] Physical Exam Const alert, oriented x3, no apparent distress and well nourished General Appearance: cooperative and well developed HEENT normocephalic, head/scalp atraumatic, moist oral mucous membranes, oropharynx normal and gingiva normal Eyes PERRL and EOMs intact bilaterally Neck no lymphadenopathy, supple and no JVD Lymph Lymphatic: no lymphadenopathy noted and no lymphedema noted Resp Resp Narrative: mildly diminished breath sounds bibasally, no wheezes or crackles. On room air Cardio regular rate, regular rhythm, S1 normal heart sound, S2 normal heart sound and no murmurs GI normal to inspection, nondistended, normoactive bowel sounds, soft to palpation, non-tender and non-distended Extremity Extremity Narrative: lower extremities have no edema, hyperpigmented lower extremities, distal pulses palpable. Neuro CN's II-XII intact bilaterally, no focal motor deficits and no sensory deficits noted Motor Exam: strength 5/5 throughout Psych thought process normal, cooperative and affect normal Appearance: appropriate Assessment & Plan Assessment/Plan (1) CHF exacerbation: QUALIFIERS: Heart failure type: unspecified Qualified Code(s): I50.9 - Heart failure, unspecified PLAN: Plan #Hypoxia due to right lower lobe pneumonia and acute COPD exacerbation Was admitted with shortness of breath. CTA of the chest showed no PE but showed evidence of right lower lobe pneumonia Currently on IV levofloxacin was transfered to ICU yesterday due to concerns about worsening shortness of breath. She was on airvo but has been weaned down to 2L of oxygen this morning 2D echo showed EF of 35-40% with moderate hypokinesia of hte left ventricle breathing treatment with bronchodilators. Titrate oxygen to maintain sats >90% IV solumedrol. Breathing treatment with bronchodilators. #Acute exacerbation of HFrEF Patient's proBNP was 9000 on admission and is now over 21,000. She was started on diuresis with IV Lasix 40 twice daily yesterday. 2D echo as above which shows EF of 35 to 40% with moderate hypokinesis of the left ventricle. Continue diuresis with IV Lasix 40 mg twice daily. Cardiology consulted in light of the reduced EF. Last EF per records was from an echo done in 2020 which showed EF of 70% and no evidence of hypokinesia. fluid restriction to 1500cc daily. Titrate oxygen to maintain sats >90% #UTI urine cultures growing gram negative rods. on IV levofloxacin. Will continue, pending speciation # Benign essential hypertension: On metoprolol, Cardizem and Lasix. Blood pressure was running low so blood pressure meds were held. #Type 2 diabetes mellitus with neuropathy On Lantus. Also on sitagliptin and empagliflozin as well as tirzepatide At home.Thes wre held on ISS. Accuchecks ACHS. on gabapentin #History of left sided breast cancer: s/p lumpectomy in 2003. #History of multinodular goiter. stable #Glaucoma: on netarsudil-latanoprost eye drops. #History of neurogenic bladder: stable #GERD: On PPI #DVT prophylaxis: Heparin Charges/Coding Visit Charges Inpatient E&M: 06581 Subs Hosp L2
[2025-01-21 11:28] LABS: Bedside Glucose 323 mg/dL (74-106)
[2025-01-21] MEDS: dilTIAZem CD 180 MG Capsule PO (12:38)
--- NOTE | 2025-01-21 13:02 | PCM.CONS.C ---
HPI Consult Data Date of Consult: 01/21/25 HPI Narrative HPI Narrative: OLGA DONALDSON, is a 80 F who presents with SOB found to be in CHF and questionable pneumonia. There is a new drop in EF. [facility] Medical History Fracture of hip, left, closed Coronary artery disease Paronychia of left index finger Vaginal cyst Anxiety Depression Irregular heart beat Multiple thyroid nodules Foraminal stenosis of lumbar region Lumbar spinal stenosis Diabetic retinopathy Colon polyp Thyroid goiter Hyperlipidemia Hypokalemia Microcytic anemia Neurogenic bladder Hypophosphatemia Hypercalcemia Former smoker UTI (urinary tract infection) Iron deficiency anemia Aortic stenosis Hyponatremia Urine retention Chronic renal failure, stage 3 (moderate) Cellulitis and abscess of finger, unspecified Retinopathy Peripheral artery disease Leg weakness, bilateral GERD (gastroesophageal reflux disease) Chronic idiopathic constipation COPD (chronic obstructive pulmonary disease) Polypharmacy Hypertension Carpal tunnel syndrome of right wrist Strain of right rotator cuff capsule Rhinitis Urinary retention with incomplete bladder emptying Vitamin D deficiency Asthma Pruritus Goiter, nontoxic, multinodular Anemia Diabetes Hx of venous thrombosis and embolism History of malignant neoplasm of breast Type 2 diabetes mellitus Home Medications ?Medication ?Instructions ?Recorded ?Last Taken ?Type aspirin 81 mg chewable tablet [address] [facility] 01/21/16 01/15/25 History magnesium oxide 400 mg (241.3 mg 400 mg PO BID SUPPLEMENT 08/16/18 01/15/25 History magnesium) tablet metoprolol tartrate 25 mg tablet 25 mg PO BID BLOOD PRESSURE 08/16/18 01/15/25 History pantoprazole 40 mg tablet,delayed 40 mg PO DAILY ACID REFLUX 12/02/19 01/15/25 History release empagliflozin 10 mg tablet 10 mg PO DAILY DIABETES 10/18/20 01/15/25 History (Jardiance) sitagliptin phosphate 50 mg tablet 50 mg PO DAILY DIABETES 10/18/20 01/15/25 History (Januvia) multivitamin 1 tab PO DAILY VITAMIN 12/06/21 01/15/25 History pravastatin 20 mg tablet 20 mg PO DAILY CHOLESTEROL 12/06/21 01/15/25 History ascorbic acid (vitamin C) 250 mg 250 mg PO DAILY SUPPLEMENT 08/13/23 01/15/25 History tablet (Vitamin C) gabapentin 100 mg capsule 100 mg PO QHS NERVE PAIN 08/13/23 01/14/25 History roflumilast 500 mcg tablet 500 mcg PO DAILY COPD 08/13/23 01/15/25 History insulin lispro 100 unit/mL 10 unit subcut TIDAC short acting 12/30/23 01/15/25 History subcutaneous pen (Humalog KwikPen insulin (U-100) Insulin) budesonide 160 mcg-glycopyr 9 2 inh inhalation BID 01/07/25 01/15/25 History mcg-formot 4.8 mcg/actuation HFA inhaler (Breztri Aerosphere) diltiazem HCl 180 mg 180 mg PO DAILY 01/07/25 01/15/25 History capsule,extended release 24 hr, controlled insulin glargine 100 unit/mL (3 20 unit subcut BID 01/07/25 01/15/25 History mL) subcutaneous pen (Lantus Solostar U-100 Insulin) ipratropium bromide 21 mcg (0.03 1 - 2 spray intranasal Q6H PRN 01/07/25 Unknown History %) nasal spray allergy symptoms lancets 28 gauge (TRUEplus Lancets) 01/07/25 Unknown History acetaminophen 500 mg tablet 1,000 mg PO Q6H PRN Pain Score 1-3 01/15/25 Unknown History azelastine 137 mcg (0.1 %) nasal 1 - 2 spray intranasal BID 01/15/25 01/15/25 History spray furosemide 40 mg tablet (Lasix) 40 mg PO DAILY #5 tabs 01/15/25 Unknown Rx mecobalamin (vitamin B12) 1,000 1,000 mcg PO DAILY 01/15/25 01/15/25 History mcg chewable tablet (B12 Active) menthol 0.44 %-zinc oxide 20.6 % 1 applic topical 4X/DAY PRN skin 01/15/25 Unknown History topical ointment (CalaSoothe) irritation netarsudil 0.02 %-latanoprost 1 drp EACH EYE DAILY 01/15/25 01/15/25 History 0.005 % eye drops (Rocklatan) potassium chloride 20 mEq oral 20 meq PO BID #30 ea 01/15/25 Unknown Rx packet psyllium husk 0.4 gram capsule 0.4 g PO DAILY 01/15/25 01/15/25 History (Daily Fiber) tirzepatide 5 mg/0.5 mL 5 mg subcut QWEEK 01/15/25 Unknown History subcutaneous pen injector (Mounjaro) Allergy/AdvReac Type Severity Reaction Status Date / Time adhesive tape (tape) Allergy NEEDS Verified 01/20/25 00:04 FOLLOW-UP amoxicillin Allergy YEAST Verified 01/20/25 00:04 INFECTION cephalexin monohydrate (From Allergy Rash Verified 01/20/25 00:04 Keflex) clopidogrel bisulfate (From Allergy Other Verified 01/20/25 00:04 Plavix) Family History Daughter Breast cancer Father Hypertension Sister Cancer Kidney disease Mother Pancreatic cancer Surgical History History of left hip hemiarthroplasty S/P fine needle aspiration (~10/2020) H/O dilation and curettage (~07/10/20) History of Achilles tendon repair Retinopathy History of lumpectomy of left breast Social History household members: spouse Smoking Status: Former smoker alcohol intake: never substance use type: does not use caffeine: Yes what type of physical activity do you participate in: none seatbelt use: always do you feel safe at home: Yes additional social history: [employer]- retired Objective Data Vital Signs: Vital Signs Temp Pulse Resp BP Pulse Ox O2 Del Method O2 Flow Rate 97.8 F 103 H 18 142/69 H 100 Venturi Mask 2 01/21/25 08:00 01/21/25 11:00 01/21/25 11:00 01/21/25 11:00 01/21/25 11:00 01/21/25 11:00 01/21/25 11:00 FiO2 25 01/21/25 05:00 Oxygen Flow Rate (L/min) 2 Oxygen Delivery Method Venturi Mask Weight: 167 lb 12.8 oz Body Mass Index (BMI) 29.7 Intake & Output: Intake and Output for Last 24 Hours 01/19/25 01/20/25 01/21/25 23:59 23:59 23:59 Intake Total 1419.25 / 1419.25 520 / 520 Output Total 2350 / 3250 1500 / 1500 Balance -930.75 / -1830.75 -980 / -980 Lab / Micro Data 01/21/25 04:38 01/21/25 04:38 Labs: Laboratory Results - last 24 hr 01/20/25 14:13: POC Glucose 389 H 01/20/25 16:50: POC Glucose 361 H 01/20/25 21:10: POC Glucose 265 H 01/21/25 04:38: WBC 10.3, RBC 3.94 L, Hgb 10.8 L, Hct 35.0 L, MCV 88.8, MCH 27.4, MCHC 30.9 L, RDW Std Deviation 51.8 H, RDW Coeff of Vijay 16.0 H, Plt Count 245, MPV 11.0, Immature Gran % (Auto) 0.400, Neut % (Auto) 88.4 H, Lymph % (Auto) 7.7 L, Hawkins % (Auto) 3.5, Eos % (Auto) 0.0, Baso % (Auto) 0.0, Absolute Neuts (auto) 9.1 H, Absolute Lymphs (auto) 0.79 L, Nucleated RBC % 0, Sodium 138, Potassium 4.0, Chloride 99, Carbon Dioxide 24.3, Anion Gap 14, BUN 23 H, Creatinine 1.19, Estim Creat Clear Calc 36.45 L, Est GFR (MDRD) Non-Af 46 L, BUN/Creatinine Ratio 19.6, Glucose 208 H, Calcium 9.8, [place] [address] H 01/21/25 08:06: POC Glucose 202 H 01/21/25 11:10: POC Glucose 323 H Micro: Microbiology 01/20/25 01:58 Urine, Catheterized Urine Culture - Preliminary Gram negative wes 01/20/25 04:35 Mucosa - Nasopharyngeal Respiratory Panel (PCR) - Final ABG Data ABG results: ABG 01/20/25 16:54 Specimen Type ART Sample Site R Radial pH 7.38 Bicarbonate Actual 35.5 H Total CO2 37 Base Excess 10 H O2 Saturation 32 L O2 % 30.0 ABG pCO2 59.4 H ABG pO2 21 L* Joe Test Positive Respiration Rate 14 O2 Delivery Device BiPAP Vent Mode ST Tidal Volume 500.0 POC PEEP 8 Crit Call To/Read Back Yes Blood Gas Notified Whom tereletsky Blood Gas Notified Time 16:55:40 Cardiology Labs/Tests 01/20/25 16:54: pH 7.38, Bicarbonate Actual 35.5 H, Base Excess 10 H, O2 Saturation 32 L, ABG pCO2 59.4 H, ABG pO2 21 L*, Joe Test Positive 01/21/25 04:38: WBC 10.3, RBC 3.94 L, Hgb 10.8 L, Hct 35.0 L, MCV 88.8, MCH 27.4, MCHC 30.9 L, Plt Count 245, MPV 11.0, Immature Gran % (Auto) 0.400, Neut % (Auto) 88.4 H, Lymph % (Auto) 7.7 L, Hawkins % (Auto) 3.5, Eos % (Auto) 0.0, Baso % (Auto) 0.0, Absolute Neuts (auto) 9.1 H, Nucleated RBC % 0, Sodium 138, Potassium 4.0, Chloride 99, Carbon Dioxide 24.3, Anion Gap 14, BUN 23 H, Creatinine 1.19, Est GFR (MDRD) Non-Af 46 L, BUN/Creatinine Ratio 19.6, Glucose 208 H, Calcium 9.8 Rhythm: EKG: ECHO: Stress Test: Cardiac Cath: PCI: CT Surgery: Holter monitor: EPS: PPM: CXR: Chest CT Scan: Radiography Diagnostic Testing: Radiology Impression Chest CTA 01/20/25 00:09 IMPRESSION: No evidence of filling defect to suggest pulmonary embolism. Very small bilateral pleural effusions and motion at the bases. Small area of consolidation change at the right posterior recess may represent atelectasis with developing pneumonia not excluded. Mild areas of septal thickening in the lower lobes may represent mild interstitial edema. The central airways are patent. Moderate emphysematous change and hyperinflation. Atherosclerotic changes at the thoracic aortic arch and descending thoracic aorta with some areas of soft plaque formation. Three-vessel coronary calcification noted. Cardiomegaly. No pericardial effusion. Reading Location: [id number] Echocardiogram 01/20/25 04:12 Interpretation Summary Mildly dilated left ventricle. The estimated ejection fraction is 35-40 %. There is evidence of diastolic dysfunction. There is moderate global hypokinesis of the left ventricle. Trivial mitral valve insufficiency. Mild aortic stenosis. Trivial aortic valve insufficiency. Ordering Physician: Sandeep Carlton Referring Physician: Ramone Smiley Performed By: Margot Cleary, DALIA, RVT Chest X-Ray 01/21/25 05:55 IMPRESSION: New appearing [id number] ill-defined perihilar opacity at the left upper lobe may represent developing infiltrate or less likely an asymmetric edema pattern. Bilateral medial retrocardiac lower lobe streaky opacities not significantly changed. No pleural effusions identified. Reading Location: [id number]
[2025-01-21] MEDS: Carvedilol 6.25 MG Tablet PO ×2 (14:40→21:06)
[2025-01-21] MEDS: Empagliflozin 10 MG Tablet PO (14:41)
[2025-01-21 17:10] LABS: Bedside Glucose 254 mg/dL (74-106)
--- NOTE | 2025-01-21 17:27 | PCM.CONS.C ---
Assessment & Plan Assessment/Plan (1) Acute hypoxic on chronic hypercapnic respiratory failure: (2) CHF exacerbation: QUALIFIERS: Heart failure type: systolic Qualified Code(s): I50.23 - Acute on chronic systolic (congestive) heart failure (3) Aortic stenosis: QUALIFIERS: Cardiac valve disease etiology: nonrheumatic Qualified Code(s): I35.0 - Nonrheumatic aortic (valve) stenosis (4) Coronary artery disease: QUALIFIERS: Coronary Disease-Associated Artery/Lesion type: [place] artery [place] vs. transplanted heart: [place] heart Associated angina: without angina Qualified Code(s): I25.10 - Atherosclerotic heart disease of [place] coronary artery without angina pectoris (5) Elevated troponin: (6) Hypertension: QUALIFIERS: Hypertension type: primary hypertension Qualified Code(s): I10 - Essential (primary) hypertension PLAN: Plan Patient with hypoxic respiratory failure likely multifactorial secondary to newly diagnosed CHF with reduced ejection fraction with EF estimated to be 35% with global hypokinesis on top of underlying COPD. Patient with history of coronary disease, mild troponin elevation likely demand ischemia secondary to hypoxic respiratory failure. Patient with mild aortic stenosis which could be contributory could be contributing to CHF exacerbation. ?Will DC Cardizem to avoid negative inotropic effect, will start Coreg for guideline directed medical therapy and to control heart rate will start with 6.25 twice daily and will uptitrate as tolerated by blood pressure, will start Entresto, will continue diuresis with IV Lasix 40 IV twice daily, will add Jardiance 10 mg p.o. daily given diabetes to aid with diuresis and blood sugar control, will monitor urine output, electrolytes, kidney function will keep potassium above 4 and mag above 2. ? Continue management of COPD exacerbation. ? Continue aspirin and statins. ? Trend as troponins, monitor EKG. ? Once the patient is euvolemic we will arrange for ischemic evaluation. HPI Consult Data Date of Consult: 01/21/25 HPI Narrative Reason for Consultation: CM, CHF HPI Narrative: OLGA DONALDSON, is a 80 F who presents SOB Patient has past medical history significant for COPD, hypertension, mild aortic stenosis, hyperlipidemia, diabetes, history of VTE, history of breast cancer, presenting with shortness of breath, echo showed EF of 35% which is a drop from baseline normal EF, chest x-ray followed by CT showed findings suggestive of questionable pneumonia on top of underlying pulmonary venous congestion. Patient was started on diuresis, on BiPAP, on IV antibiotic therapy. She has been having occasional episodes of sinus tachycardia with brief episodes of nonsustained VT, she was on Cardizem, which we will DC to avoid any negative inotropic effect. Patient started to feel better with less oxygen requirements after diuresis was initiated. [facility] Medical History (Updated 01/21/25 @ 17:[address] Kristian Darden MD) Fracture of hip, left, closed Coronary artery disease Paronychia of left index finger Vaginal cyst Anxiety Depression Irregular heart beat Multiple thyroid nodules Foraminal stenosis of lumbar region Lumbar spinal stenosis Diabetic retinopathy Colon polyp Thyroid goiter Hyperlipidemia Hypokalemia Microcytic anemia Neurogenic bladder Hypophosphatemia Hypercalcemia Former smoker UTI (urinary tract infection) Iron deficiency anemia Aortic stenosis Hyponatremia Urine retention Chronic renal failure, stage 3 (moderate) Cellulitis and abscess of finger, unspecified Retinopathy Peripheral artery disease Leg weakness, bilateral GERD (gastroesophageal reflux disease) Chronic idiopathic constipation COPD (chronic obstructive pulmonary disease) Polypharmacy Hypertension Carpal tunnel syndrome of right wrist Strain of right rotator cuff capsule Rhinitis Urinary retention with incomplete bladder emptying Vitamin D deficiency Asthma Pruritus Goiter, nontoxic, multinodular Anemia Diabetes Hx of venous thrombosis and embolism History of malignant neoplasm of breast Type 2 diabetes mellitus Home Medications ?Medication ?Instructions ?Recorded ?Last Taken ?Type aspirin 81 mg chewable tablet 81 mg PO DAILY [facility] 01/21/16 01/15/25 History magnesium oxide 400 mg (241.3 mg 400 mg PO BID SUPPLEMENT 08/16/18 01/15/25 History magnesium) tablet metoprolol tartrate 25 mg tablet 25 mg PO BID BLOOD PRESSURE 08/16/18 01/15/25 History pantoprazole 40 mg tablet,delayed 40 mg PO DAILY ACID REFLUX 12/02/19 01/15/25 History release empagliflozin 10 mg tablet 10 mg PO DAILY DIABETES 10/18/20 01/15/25 History (Jardiance) sitagliptin phosphate 50 mg tablet 50 mg PO DAILY DIABETES 10/18/20 01/15/25 History (Januvia) multivitamin 1 tab PO DAILY VITAMIN 12/06/21 01/15/25 History pravastatin 20 mg tablet 20 mg PO DAILY CHOLESTEROL 12/06/21 01/15/25 History ascorbic acid (vitamin C) 250 mg 250 mg PO DAILY SUPPLEMENT 08/13/23 01/15/25 History tablet (Vitamin C) gabapentin 100 mg capsule 100 mg PO QHS NERVE PAIN 08/13/23 01/14/25 History roflumilast 500 mcg tablet 500 mcg PO DAILY COPD 08/13/23 01/15/25 History insulin lispro 100 unit/mL 10 unit subcut TIDAC short acting 12/30/23 01/15/25 History subcutaneous pen (Humalog KwikPen insulin (U-100) Insulin) budesonide 160 mcg-glycopyr 9 2 inh inhalation BID 01/07/25 01/15/25 History mcg-formot 4.8 mcg/actuation HFA inhaler (Breztri Aerosphere) diltiazem HCl 180 mg 180 mg PO DAILY 01/07/25 01/15/25 History capsule,extended release 24 hr, controlled insulin glargine 100 unit/mL (3 20 unit subcut BID 01/07/25 01/15/25 History mL) subcutaneous pen (Lantus Solostar U-100 Insulin) ipratropium bromide 21 mcg (0.03 1 - 2 spray intranasal Q6H PRN 01/07/25 Unknown History %) nasal spray allergy symptoms lancets 28 gauge (TRUEplus Lancets) 01/07/25 Unknown History acetaminophen 500 mg tablet 1,000 mg PO Q6H PRN Pain Score 1-3 01/15/25 Unknown History azelastine 137 mcg (0.1 %) nasal 1 - 2 spray intranasal BID 01/15/25 01/15/25 History spray furosemide 40 mg tablet (Lasix) 40 mg PO DAILY #5 tabs 01/15/25 Unknown Rx mecobalamin (vitamin B12) 1,000 1,000 mcg PO DAILY 01/15/25 01/15/25 History mcg chewable tablet (B12 Active) menthol 0.44 %-zinc oxide 20.6 % 1 applic topical 4X/DAY PRN skin 01/15/25 Unknown History topical ointment (CalaSoothe) irritation netarsudil 0.02 %-latanoprost 1 drp EACH EYE DAILY 01/15/25 01/15/25 History 0.005 % eye drops (Rocklatan) potassium chloride 20 mEq oral 20 meq PO BID #30 ea 01/15/25 Unknown Rx packet psyllium husk 0.4 gram capsule 0.4 g PO DAILY 01/15/25 01/15/25 History (Daily Fiber) tirzepatide 5 mg/0.5 mL 5 mg subcut QWEEK 01/15/25 Unknown History subcutaneous pen injector (Mounjaro) Allergy/AdvReac Type Severity Reaction Status Date / Time adhesive tape (tape) Allergy NEEDS Verified 01/20/25 00:04 FOLLOW-UP amoxicillin Allergy YEAST Verified 01/20/25 00:04 INFECTION cephalexin monohydrate (From Allergy Rash Verified 01/20/25 00:04 Keflex) clopidogrel bisulfate (From Allergy Other Verified 01/20/25 00:04 Plavix) Family History Daughter Breast cancer Father Hypertension Sister Cancer Kidney disease Mother Pancreatic cancer Surgical History History of left hip hemiarthroplasty S/P fine needle aspiration (~10/2020) H/O dilation and curettage (~07/10/20) History of Achilles tendon repair Retinopathy History of lumpectomy of left breast Social History household members: spouse Smoking Status: Former smoker alcohol intake: never substance use type: does not use caffeine: Yes what type of physical activity do you participate in: none seatbelt use: always do you feel safe at home: Yes additional social history: [employer]- retired ROS ROS Narrative 14 system review of systems was performed, all negative except what was listed in HPI. Physical Exam Narrative General: Alert, oriented x3, elderly, frail. HEENT: Normocephalic, normal vision, normal EOM. Neck: Normal JVD, no carotid Bruit, no thyromegaly , no lymphadenopathy. Chest wall: Normal shape, non tender. Cardiac: Normal rate and rhythm, no rubs, gallops , there is 2/6 ejection systolic murmur maximum noted in the aortic area Respiratory: Diminished air entry bilaterally Abdomen: Nondistended, nontender, no ascites or masses or organomegaly noted,? normal bowel sounds. Extremities: Normal pulsations, no edema, normal strength and muscle mass. Neurological: Gross CN examination is normal, Normal power in all extremities. Objective Data Vital Signs: Vital Signs Temp Pulse Resp BP Pulse Ox O2 Del Method O2 Flow Rate 98 F 98 20 H 118/60 100 Nasal Cannula 2 01/21/25 12:00 01/21/25 15:00 01/21/25 15:00 01/21/25 15:00 01/21/25 15:00 01/21/25 15:00 01/21/25 15:00 FiO2 25 01/21/25 13:27 Oxygen Flow Rate (L/min) 2 Oxygen Delivery Method Nasal Cannula Weight: 167 lb 12.8 oz Body Mass Index (BMI) 29.7 Intake & Output: Intake and Output for Last 24 Hours 01/19/25 01/20/25 01/21/25 23:59 23:59 23:59 Intake Total 1419.25 / 1419.25 520 / 520 Output Total 2350 / 3250 1500 / 1500 Balance -930.75 / -1830.75 -980 / -980 Lab / Micro Data 01/21/25 04:38 01/21/25 04:38 Labs: Laboratory Results - last 24 hr 01/20/25 14:13: POC Glucose 389 H 01/20/25 16:50: POC Glucose 361 H 01/20/25 21:10: POC Glucose 265 H 01/21/25 04:38: WBC 10.3, RBC 3.94 L, Hgb 10.8 L, Hct 35.0 L, MCV 88.8, MCH 27.4, MCHC 30.9 L, RDW Std Deviation 51.8 H, RDW Coeff of [place]ij[place] 16.0 H, Plt Count 245, MPV 11.0, Immature Gran % (Auto) 0.400, Neut % (Auto) 88.4 H, Lymph % (Auto) 7.7 L, [place] % (Auto) 3.5, Eos % (Auto) 0.0, Baso % (Auto) 0.0, Absolute Neuts (auto) 9.1 H, Absolute Lymphs (auto) 0.79 L, Nucleated RBC % 0, Sodium 138, Potassium 4.0, Chloride 99, Carbon Dioxide 24.3, Anion Gap 14, BUN 23 H, Creatinine 1.19, Estim Creat Clear Calc 36.45 L, Est GFR (MDRD) Non-Af 46 L, BUN/Creatinine Ratio 19.6, Glucose 208 H, Calcium 9.8, [place] [address] H 01/21/25 08:06: POC Glucose 202 H 01/21/25 11:10: POC Glucose 323 H 01/21/25 16:48: POC Glucose 254 H Micro: Microbiology 01/20/25 01:58 Urine, Catheterized Urine Culture - Preliminary Gram negative wes Cardiology Labs/Tests 01/21/25 04:38: WBC 10.3, RBC 3.94 L, Hgb 10.8 L, Hct 35.0 L, MCV 88.8, MCH 27.4, MCHC 30.9 L, Plt Count 245, MPV 11.0, Immature Gran % (Auto) 0.400, Neut % (Auto) 88.4 H, Lymph % (Auto) 7.7 L, [place] % (Auto) 3.5, Eos % (Auto) 0.0, Baso % (Auto) 0.0, Absolute Neuts (auto) 9.1 H, Nucleated RBC % 0, Sodium 138, Potassium 4.0, Chloride 99, Carbon Dioxide 24.3, Anion Gap 14, BUN 23 H, Creatinine 1.19, Est GFR (MDRD) Non-Af 46 L, BUN/Creatinine Ratio 19.6, Glucose 208 H, Calcium 9.8 Rhythm: EKG: ECHO: Stress Test: Cardiac Cath: PCI: CT Surgery: Holter monitor: EPS: PPM: CXR: Chest CT Scan: Radiography Diagnostic Testing: Radiology Impression Chest X-Ray 01/21/25 05:55 IMPRESSION: New appearing [id number] ill-defined perihilar opacity at the left upper lobe may represent developing infiltrate or less likely an asymmetric edema pattern. Bilateral medial retrocardiac lower lobe streaky opacities not significantly changed. No pleural effusions identified. Reading Location: [id number]
[2025-01-21] MEDS: SACUBITRIL/VALSARTAN 24/26 MG TABLET 1 EACH PO (21:06)
[2025-01-21] MEDS: Gabapentin 100 MG Capsule PO (21:06)
[2025-01-21] MEDS: levoFLOXacin 750 MG Tablet PO (21:06)
[2025-01-21] MEDS: Pravastatin 20 MG Tablet PO (21:06)
[2025-01-21 21:26] LABS: Bedside Glucose 271 mg/dL (74-106)
[2025-01-22] VITALS (18 sets, daily range): BP systolic 102–137; BP diastolic 54–98; PULSE 76–97; RESP 16–28; TEMP 35.9–37.1; O2SAT 96–100; BMI 30.1
--- NOTE | 2025-01-22 01:59 | CPS ---
Patient refused PAP therapy for night time use.
--- NOTE | 2025-01-22 06:00 | CPS ---
Critical ABG values on blood gas done on 01/20/25 at 04:22. Dr. castle.
[2025-01-22 06:39] LABS: Absolute Lymphocyte Count 0.73 X10^3/uL (0.83-4.51); Absolute Neutrophil Count 11.7 X10^3/uL (2.0-7.7); Hematocrit 35.6 % (37-47); Hemoglobin 11.1 g/dL (12.0-15.0); Lymphocyte # 0.73 X10^3/ul (0.83-4.51); Lymphocyte % 5.7 % (19-41); Mean Corp Hgb Conc 31.2 g/dL (32-36); Mean Corpuscular Hgb 27.3 pg (27.0-32.0); Mean Corpuscular Volume 87.7 fL (81-99); Mean Platelet Vol. 11.1 fl (6.2-12.0); Monocyte# 0.31 X10^3/uL; Monocyte% 2.4 % (0-10); NRBC Flagged by Analyzer 0 % (0-5); Neutrophil # 11.72 X10^3/uL (2.7-7.7); Neutrophil % 91.4 % (47-70); Platelet Count 281 K/mm3 (150-450); RBC Distribution Width CV 15.9 % (11.6-14.6); RBC Distribution Width SD 51.3 fl (35.1-43.9); Red Blood Count 4.06 M/mm3 (4.2-5.4); White Blood Count 12.8 K/mm3 (4.4-11.0)
[2025-01-22 07:06] LABS: Anion Gap 10 (5-15); BUN 31 mg/dL (4-19); BUN/Creat Ratio 29.2 RATIO (10-20); Calcium,Total 10.2 mg/dL (7.6-11.0); Chloride 99 mmol/L (98-108); Creatinine, Serum 1.07 mg/dL (0.70-1.20); EST Glomerular Filtration Rate 52 (>60); Estimated Creatinine Clearance 40.54 ml/min (50-250); Glucose 160 mg/dL (70-99); Potassium 4.8 mmol/L (3.3-5.1); Sodium Level 136 mmol/L (133-145)
[2025-01-22] MEDS: Ipratropium/Albuterol Sulfate 3 ML AMPUL.NEB INHALATION ×3 (07:21→20:14)
[2025-01-22] MEDS: Aspirin 81 MG TAB.CHEW PO (08:37)
[2025-01-22] MEDS: Insulin Lispro 100 UNIT/ML INSULN.PEN SC ×4 (08:37→21:09)
[2025-01-22] MEDS: Carvedilol 6.25 MG Tablet PO ×2 (08:38→16:46)
[2025-01-22] MEDS: Potassium Chloride Oral Tablet 20 MEQ PO ×2 (08:38→16:46)
[2025-01-22] MEDS: Multivitamins,Therapeutic Tablet 1 TABLET PO (08:40)
[2025-01-22 09:04] LABS: Bedside Glucose 183 mg/dL (74-106)
[2025-01-22] MEDS: SACUBITRIL/VALSARTAN 24/26 MG TABLET 1 EACH PO ×2 (09:43→21:09)
[2025-01-22] MEDS: Azelastine HCl NASAL.SRY 2 SPRAY NASAL ×2 (09:43→21:08)
[2025-01-22] MEDS: ROFLUMILAST 500 MCG TABLET PO (09:43)
[2025-01-22] MEDS: Insulin Glargine-YFGN 100 UNIT/ML Pen 12 UNIT SC ×2 (09:44→21:09)
[2025-01-22] MEDS: Heparin Injection (Vial) 5,000 UNIT/ML VIAL 5000 UNIT SC ×2 (09:44→21:09)
[2025-01-22] MEDS: Empagliflozin 10 MG Tablet PO (09:45)
[2025-01-22] MEDS: NETARSUDIL MESYLAT/LATANOPROST 2.5 ML DROPS 1 DRP EACH EYE (09:46)
[2025-01-22] MEDS: Furosemide 40 MG/4 ML Vial IV ×2 (09:46→16:47)
[2025-01-22] MEDS: Magnesium Chloride 64 MG Delay Rel.Tablet 128 MG PO ×2 (09:46→21:09)
[2025-01-22] MEDS: guaiFENesin 600 MG Tablet PO ×2 (09:46→21:09)
[2025-01-22] MEDS: Psyllium 1 PACKET PO (09:46)
[2025-01-22] MEDS: Pantoprazole Sodium 40 MG Tablet PO (09:46)
[2025-01-22] MEDS: Cyanocobalamin 500 MCG Tablet 1000 MCG PO (09:47)
[2025-01-22] MEDS: MethylPREDNISolone 125 MG/2 ML Vial 60 MG IV ×2 (09:47→21:09)
[2025-01-22] MEDS: Ascorbic Acid 500 MG Tablet 250 MG PO (09:48)
--- NOTE | 2025-01-22 09:49 | PN_ITS ---
Subjective Subjective Patient seen and examined this morning. She says she felt much better. She did require the BiPAP again last night. She is now on 2 L of oxygen. Review of systems otherwise negative. She is requesting that I give her son a call to update him about her medical condition. Objective Data Objective Data Vital Signs: Vital Signs Temp Pulse Resp BP Pulse Ox O2 Del Method O2 Flow Rate 97.0 F L 86 16 115/71 100 Nasal Cannula 2 01/22/25 04:00 01/22/25 08:00 01/22/25 08:00 01/22/25 08:00 01/22/25 08:00 01/22/25 08:00 01/22/25 08:00 FiO2 24 01/22/25 02:00 Oxygen Flow Rate (L/min) 2 Oxygen Delivery Method Nasal Cannula Weight: 170 lb Body Mass Index (BMI) 30.1 Intake & Output: Intake and Output for Last 24 Hours 01/20/25 01/21/25 01/22/25 23:59 23:59 23:59 Intake Total 1419.25 / 1419.25 940 / 1190 400 / 400 Output Total 2350 / 3250 2200 / 3075 1125 / 1125 Balance -930.75 / -1830.75 -1260 / -1885 -725 / -725 Lab / Micro Data 01/22/25 06:30 01/22/25 06:30 Labs: Laboratory Results - last 24 hr 01/21/25 11:10: POC Glucose 323 H 01/21/25 16:48: POC Glucose 254 H 01/21/25 20:58: POC Glucose 271 H 01/22/25 06:30: WBC 12.8 H, RBC 4.06 L, Hgb 11.1 L, Hct 35.6 L, MCV 87.7, MCH 27.3, MCHC 31.2 L, RDW Std Deviation 51.3 H, RDW Coeff of [place] 15.9 H, Plt Count 281, MPV 11.1, Immature Gran % (Auto) 0.500, Neut % (Auto) 91.4 H, Lymph % (Auto) 5.7 L, [place] % (Auto) 2.4, Eos % (Auto) 0.0, Baso % (Auto) 0.0, Absolute Neuts (auto) 11.7 H, Absolute Lymphs (auto) 0.73 L, Nucleated RBC % 0, Sodium 136, Potassium 4.8, Chloride 99, Carbon Dioxide 27.0, Anion Gap 10, BUN 31 H, Creatinine 1.07, Estim Creat Clear Calc 40.54 L, Est GFR (MDRD) Non-Af 52 L, B UN/Creatinine Ratio 29.2 H, Glucose 160 H, Calcium 10.2 01/22/25 08:36: POC Glucose 183 H Micro: Microbiology 01/20/25 01:58 Urine, Catheterized Urine Culture - Final Proteus mirabilis 01/20/25 04:35 Mucosa - Nasopharyngeal Respiratory Panel (PCR) - Final 01/20/25 01:58 Urine Catheter - Serna Legionella Antigen - Final 01/20/25 01:58 Urine Catheter - Serna Streptococcus pneumoniae Antigen (M - Final Physical Exam Const alert, oriented x3, no apparent distress and well nourished Constitutional Narrative: Mild distress noted. General Appearance: cooperative and well developed HEENT normocephalic, head/scalp atraumatic, hearing grossly normal bilaterally, moist oral mucous membranes, oropharynx normal and gingiva normal Eyes PERRL and EOMs intact bilaterally Neck no lymphadenopathy, supple and no JVD Lymph Lymphatic: no lymphadenopathy noted and no lymphedema noted Resp Resp Narrative: mildly diminished breath sounds bibasally, no wheezes or crackles. On room air Cardio regular rate, regular rhythm, S1 normal heart sound, S2 normal heart sound and no murmurs GI normal to inspection, nondistended, normoactive bowel sounds, soft to palpation, non-tender and non-distended GI Narrative: Obese. Extremity normal to inspection, full ROM and no clubbing, cyanosis or edema Extremity Narrative: lower extremities have no edema, hyperpigmented lower extremities, distal pulses palpable. General Extremity: no tenderness to palpation of joints or extremities Skin General Skin Exam: no breakdown Neuro oriented x3, CN's II-XII intact bilaterally, moves all extremities, no focal motor deficits and no sensory deficits noted Sensorium / Orientation: awake, alert, oriented to person, oriented to place and oriented to time Speech: speech normal Motor Exam: strength 5/5 throughout and general weakness Psych thought process normal, cooperative and affect normal Appearance: appropriate Assessment & Plan Assessment/Plan (1) CHF exacerbation: QUALIFIERS: Heart failure type: systolic Qualified Code(s): I 50.23 - Acute on chronic systolic (congestive) heart failure PLAN: Plan #Hypoxia due to right lower lobe pneumonia and acute COPD exacerbation * Was admitted with shortness of breath. CTA of the chest showed no PE but showed evidence of right lower lobe pneumonia * Currently on PO levofloxacin * was transfered to ICU yesterday due to concerns about worsening shortness of breath. She was on airvo but has been weaned down to 2L of oxygen this morning * 2D echo showed EF of 35-40% with moderate hypokinesia of hte left ventricle * breathing treatment with bronchodilators. Titrate oxygen to maintain sats >90% * IV solumedrol. Breathing treatment with bronchodilators. * #Acute exacerbation of HFrEF * Patient's proBNP was 9000 on admission and is now over 21,000. She was started on diuresis with IV Lasix 40 twice daily yesterday. * 2D echo as above which shows EF of 35 to 40% with moderate hypokinesis of the left ventricle. * Continue diuresis with IV Lasix 40 mg twice daily. Last EF per records was from an echo done in 2020 which showed EF of 70% and no evidence of hypokinesia. * fluid restriction to 1500cc daily. * Titrate oxygen to maintain sats >90% * Cardiology on board. Patient started on Entresto and carvedilol as well as jardiance. Cardiology following cardiac catheter when she improves with respiratory standpoint. * #UTI * urine cultures growing Proteus which is sensitive to levofloxacin. * on PO levofloxacin. Will continue, pending speciation * # Benign essential hypertension: * metoprolol and cardizem dc'd. Patient now on PO carvedilol. * IV hydralazine prn #Type 2 diabetes mellitus with neuropathy * On Lantus. Also on sitagliptin and empagliflozin as well as tirzepatide At home. These were held * on ISS. Accuchecks ACHS. * on gabapentin * #History of left sided breast cancer: s/p lumpectomy in 2003. #History of multinodular goiter. stable #Glaucoma: on netarsudil-latanoprost eye drops. #History of neurogenic bladder: stable #GERD: On PPI #DVT prophylaxis: Heparin Disposition: transfer to PCU Charges/Coding Visit Charges Inpatient E&M: 92567 Subs Hosp L2
[2025-01-22] MEDS: 0.9% Saline Lock 10 ML Syringe IV ×2 (11:27→21:11)
[2025-01-22 12:47] LABS: Bedside Glucose 232 mg/dL (74-106)
--- NOTE | 2025-01-22 14:16 | PCM.PN.CARD ---
Subjective Subjective Feels much better , transferred out of ICU, on 2 L o2 Objective Data Vital Signs: Vital Signs Temp Pulse Resp BP Pulse Ox O2 Del Method O2 Flow Rate 98.8 F 80 20 H 116/58 L 96 Room Air 2 01/22/25 12:23 01/22/25 13:15 01/22/25 13:15 01/22/25 12:23 01/22/25 12:23 01/22/25 12:23 01/22/25 11:00 FiO2 24 01/22/25 02:00 Oxygen Flow Rate (L/min) 2 Oxygen Delivery Method Room Air Weight: 170 lb Body Mass Index (BMI) 30.1 Intake & Output: Intake and Output for Last 24 Hours 01/20/25 01/21/25 01/22/25 23:59 23:59 23:59 Intake Total 1419.25 / 1419.25 940 / 1190 400 / 400 Output Total 2350 / 3250 2200 / 3075 1125 / 1125 Balance -930.75 / -1830.75 -1260 / -1885 -725 / -725 Lab / Micro Data 01/22/25 06:30 01/22/25 06:30 Labs: Laboratory Results - last 24 hr 01/21/25 16:48: POC Glucose 254 H 01/21/25 20:58: POC Glucose 271 H 01/22/25 06:30: WBC 12.8 H, RBC 4.06 L, Hgb 11.1 L, Hct 35.6 L, MCV 87.7, MCH 27.3, MCHC 31.2 L, RDW Std Deviation 51.3 H, RDW Coeff of [place]ij[place] 15.9 H, Plt Count 281, MPV 11.1, Immature Gran % (Auto) 0.500, Neut % (Auto) 91.4 H, Lymph % (Auto) 5.7 L, [place] % (Auto) 2.4, Eos % (Auto) 0.0, Baso % (Auto) 0.0, Absolute Neuts (auto) 11.7 H, Absolute Lymphs (auto) 0.73 L, Nucleated RBC % 0, Sodium 136, Potassium 4.8, Chloride 99, Carbon Dioxide 27.0, Anion Gap 10, BUN 31 H, Creatinine 1.07, Estim Creat Clear Calc 40.54 L, Est GFR (MDRD) Non-Af 52 L, BUN/Creatinine Ratio 29.2 H, Glucose 160 H, Calcium 10.2 01/22/25 08:36: POC Glucose 183 H 01/22/25 11:25: POC Glucose 232 H Micro: Microbiology 01/20/25 04:58 Blood Culture (Wb) - Anticubital Right Blood Culture - Preliminary No growth in 48 hours. 01/20/25 00:30 Blood Culture (Wb) - Right Hand Blood Culture - Preliminary No growth in 48 hours. 01/20/25 00:05 Blood Culture (Wb) - Right Hand Blood Culture - Preliminary No growth in 48 hours. 01/20/25 01:58 Urine, Catheterized Urine Culture - Final Proteus mirabilis Rhythm Strip Rhythm Strip: Sinus Rhythm Cardiology Labs/Tests 01/22/25 06:30: WBC 12.8 H, RBC 4.06 L, Hgb 11.1 L, Hct 35.6 L, MCV 87.7, MCH 27.3, MCHC 31.2 L, Plt Count 281, MPV 11.1, Immature Gran % (Auto) 0.500, Neut % (Auto) 91.4 H, Lymph % (Auto) 5.7 L, [place] % (Auto) 2.4, Eos % (Auto) 0.0, Baso % (Auto) 0.0, Absolute Neuts (auto) 11.7 H, Nucleated RBC % 0, Sodium 136, Potassium 4.8, Chloride 99, Carbon Dioxide 27.0, Anion Gap 10, BUN 31 H, Creatinine 1.07, Est GFR (MDRD) Non-Af 52 L, BUN/Creatinine Ratio 29.2 H, Glucose 160 H, Calcium 10.2 Rhythm: EKG: ECHO: Stress Test: Cardiac Cath: PCI: CT Surgery: Holter monitor: EPS: PPM: CXR: Chest CT Scan: Physical Exam Const alert and oriented x3 HEENT normocephalic Eyes PERRL and EOMs intact bilaterally Neck full ROM, no lymphadenopathy and supple Lymph Lymphatic: no lymphadenopathy noted Chest inspection of chest normal Resp normal respiratory effort and clear to auscultation bilaterally Cardio regular rate, regular rhythm, S1 normal heart sound and S2 normal heart sound Cardio Narrative: ESM max. noted on the aortic area GI normal to inspection, nondistended, normoactive bowel sounds Palpation: no hepatosplenomegaly Extremity normal to inspection and full ROM Psych mental status grossly normal Assessment & Plan Assessment/Plan PLAN: Plan Assessment: Patient with hypoxic respiratory failure likely multifactorial secondary to newly diagnosed CHF with reduced ejection fraction with EF estimated to be 35% with global hypokinesis on top of underlying pneumonia with COPD exacerbation. Patient with history of coronary disease, mild troponin elevation likely demand ischemia secondary to hypoxic respiratory failure. Patient with mild aortic stenosis which could be contributory could be contributing to CHF exacerbation. PLan: ?We DCed Cardizem to avoid negative inotropic effect, we started Coreg for guideline directed medical therapy and to control heart rate ; currently on 6.25 twice daily and will uptitrate as tolerated by blood pressure, we started Entresto will continue, will continue diuresis with IV Lasix 40 IV twice daily, will switch to oral tomorrow, we added Jardiance 10 mg p.o. daily given diabetes to aid with diuresis and blood sugar control, will monitor urine output, electrolytes, kidney function will keep potassium above 4 and mag above 2. ? Continue management of COPD exacerbation. ? Continue aspirin and statins. ? Trend as troponins, monitor EKG. ? Once the patient is euvolemic we will arrange for ischemic evaluation.
[2025-01-22 19:38] LABS: Bedside Glucose 269 mg/dL (74-106)
[2025-01-22] MEDS: Pravastatin 20 MG Tablet PO (21:08)
[2025-01-22] MEDS: Acetaminophen 325 MG Tablet 650 MG PO (21:08)
[2025-01-22] MEDS: Gabapentin 100 MG Capsule PO (21:08)
[2025-01-22 21:35] LABS: Bedside Glucose 310 mg/dL (74-106)
[2025-01-23] VITALS (9 sets, daily range): BP systolic 107–135; BP diastolic 56–81; PULSE 84–97; RESP 16–24; TEMP 36.1–37.1; O2SAT 93–99
[2025-01-23 06:12] LABS: Absolute Lymphocyte Count 0.74 X10^3/uL (0.83-4.51); Absolute Neutrophil Count 10.9 X10^3/uL (2.0-7.7); Basophil# 0.01 X10^3/uL; Basophil% 0.1 % (0-1); Hematocrit 41.8 % (37-47); Hemoglobin 13.1 g/dL (12.0-15.0); Lymphocyte # 0.74 X10^3/ul (0.83-4.51); Lymphocyte % 6.2 % (19-41); Mean Corp Hgb Conc 31.3 g/dL (32-36); Mean Corpuscular Hgb 27.3 pg (27.0-32.0); Mean Corpuscular Volume 87.1 fL (81-99); Mean Platelet Vol. 11.6 fl (6.2-12.0); Monocyte# 0.32 X10^3/uL; Monocyte% 2.7 % (0-10); NRBC Flagged by Analyzer 0 % (0-5); Neutrophil # 10.93 X10^3/uL (2.7-7.7); Neutrophil % 90.8 % (47-70); Platelet Count 322 K/mm3 (150-450); RBC Distribution Width CV 15.8 % (11.6-14.6); RBC Distribution Width SD 50.2 fl (35.1-43.9)
[2025-01-23 06:38] LABS: Anion Gap 12 (5-15); BUN 44 mg/dL (4-19); Calcium,Total 10.8 mg/dL (7.6-11.0); Carbon Dioxide 25.4 mmol/L (21.0-32.0); Chloride 98 mmol/L (98-108); Creatinine, Serum 1.32 mg/dL (0.70-1.20); EST Glomerular Filtration Rate 41 (>60); Estimated Creatinine Clearance 32.84 ml/min (50-250); Glucose 200 mg/dL (70-99); Potassium 5.2 mmol/L (3.3-5.1); Sodium Level 135 mmol/L (133-145)
[2025-01-23] MEDS: Insulin Lispro 100 UNIT/ML INSULN.PEN SC ×4 (06:38→21:47)
[2025-01-23 06:57] LABS: Bedside Glucose 214 mg/dL (74-106)
[2025-01-23] MEDS: Ipratropium/Albuterol Sulfate 3 ML AMPUL.NEB INHALATION ×3 (07:09→20:05)
[2025-01-23] MEDS: Azelastine HCl NASAL.SRY 2 SPRAY NASAL ×2 (09:00→21:48)
[2025-01-23] MEDS: Heparin Injection (Vial) 5,000 UNIT/ML VIAL 5000 UNIT SC ×2 (09:01→21:47)
[2025-01-23] MEDS: MethylPREDNISolone 125 MG/2 ML Vial 60 MG IV (09:04)
[2025-01-23] MEDS: Multivitamins,Therapeutic Tablet 1 TABLET PO (09:05)
[2025-01-23] MEDS: ROFLUMILAST 500 MCG TABLET PO (09:06)
[2025-01-23] MEDS: Aspirin 81 MG TAB.CHEW PO (09:06)
[2025-01-23] MEDS: Carvedilol 6.25 MG Tablet PO ×2 (09:06→17:47)
[2025-01-23] MEDS: SACUBITRIL/VALSARTAN 24/26 MG TABLET 1 EACH PO ×2 (09:08→21:46)
[2025-01-23] MEDS: Empagliflozin 10 MG Tablet PO (09:10)
[2025-01-23] MEDS: Cyanocobalamin 500 MCG Tablet 1000 MCG PO (09:10)
[2025-01-23] MEDS: Pantoprazole Sodium 40 MG Tablet PO (09:10)
[2025-01-23] MEDS: guaiFENesin 600 MG Tablet PO ×2 (09:10→21:47)
[2025-01-23] MEDS: Magnesium Chloride 64 MG Delay Rel.Tablet 128 MG PO ×2 (09:10→21:47)
[2025-01-23] MEDS: Ascorbic Acid 500 MG Tablet 250 MG PO (09:11)
[2025-01-23] MEDS: Sodium Polystyrene Sulfonate 15 GM/60 ML UDC 30 GM PO (09:16)
[2025-01-23] MEDS: Furosemide 40 MG/4 ML Vial IV ×2 (09:20→17:49)
--- NOTE | 2025-01-23 10:37 | PN_ITS ---
Subjective Subjective Patient seen and examined. She says she is feeling much better today. She is on room air now. Objective Data Objective Data Vital Signs: Vital Signs Temp Pulse Resp BP Pulse Ox O2 Del Method O2 Flow Rate 98.7 F 84 18 107/67 95 Room Air 2 01/23/25 08:57 01/23/25 08:57 01/23/25 08:57 01/23/25 08:57 01/23/25 08:57 01/23/25 08:57 01/22/25 11:00 FiO2 24 01/22/25 02:00 Oxygen Flow Rate (L/min) 2 Oxygen Delivery Method Room Air Weight: 169 lb 12.095 oz Body Mass Index (BMI) 30.0 Intake & Output: Intake and Output for Last 24 Hours 01/21/25 01/22/25 01/23/25 23:59 23:59 23:59 Intake Total 940 / 1190 790 / 1040 400 / 400 Output Total 2200 / 3075 1925 / 1925 1000 / 1000 Balance -1260 / -1885 -1135 / -885 -600 / -600 Lab / Micro Data 01/23/25 05:29 01/23/25 05:29 Labs: Laboratory Results - last 24 hr 01/22/25 11:25: POC Glucose 232 H 01/22/25 16:41: POC Glucose 269 H 01/22/25 21:11: POC Glucose 310 H 01/23/25 05:29: WBC 12.0 H, RBC 4.80, Hgb 13.1, Hct 41.8, MCV 87.1, MCH 27.3, M CHC 31.3 L, RDW Std Deviation 50.2 H, RDW Coeff of Vijay 15.8 H, Plt Count 322, MPV 11.6, Immature Gran % (Auto) 0.200, Neut % (Auto) 90.8 H, Lymph % (Auto) 6.2 L, [place] % (Auto) 2.7, Eos % (Auto) 0.0, Baso % (Auto) 0.1, Absolute Neuts (auto) 10.9 H, Absolute Lymphs (auto) 0.74 L, Nucleated RBC % 0, Sodium 135, Potassium 5.2 H, Chloride 98, Carbon Dioxide 25.4, Anion Gap 12, BUN 44 H, Creatinine 1.32 H, Estim Creat Clear Calc 32.84 L, Est GFR (MDRD) Non-Af 41 L, BUN/Creatinine Ratio 33.0 H, Glucose 200 H, Calcium 10.8 01/23/25 06:36: POC Glucose 214 H Micro: Microbiology 01/20/25 04:58 Blood Culture (Wb) - Anticubital Right Blood Culture - Preliminary No growth in 48 hours. 01/20/25 00:30 Blood Culture (Wb) - Right Hand Blood Culture - Preliminary No growth in 48 hours. 01/20/25 00:05 Blood Culture (Wb) - Right Hand Blood Culture - Preliminary No growth in 48 hours. 01/20/25 01:58 Urine, Catheterized Urine Culture - Final Proteus mirabilis 01/20/25 04:35 Mucosa - Nasopharyngeal Respiratory Panel (PCR) - Final 01/20/25 01:58 Urine Catheter - Serna Legionella Antigen - Final 01/20/25 01:58 Urine Catheter - Serna Streptococcus pneumoniae Antigen (M - Final Rhythm Strip Rhythm Strip: Sinus Rhythm Physical Exam Const alert, oriented x3, no apparent distress and well nourished Constitutional Narrative: Mild distress noted. General Appearance: cooperative and well developed HEENT normocephalic, head/scalp atraumatic, hearing grossly normal bilaterally, moist oral mucous membranes, oropharynx normal and gingiva normal Eyes PERRL and EOMs intact bilaterally Neck no lymphadenopathy, supple and no JVD Lymph Lymphatic: no lymphadenopathy noted and no lymphedema noted Resp Resp Narrative: mildly diminished breath sounds bibasally, no wheezes or crackles. On room air Cardio regular rate, regular rhythm, S1 normal heart sound, S2 normal heart sound and no murmurs GI normal to inspection, nondistended, normoactive bowel sounds, soft to palpation, non-tender and non-distended GI Narrative: Obese. Extremity normal to inspection, full ROM and no clubbing, cyanosis or edema Extremity Narrative: lower extremities have no edema, hyperpigmented lower extremities, distal pulses palpable. General Extremity: no tenderness to palpation of joints or extremities Skin Skin Narrative: Patient has evidence of rash, abscess, wounds or jaundice. General Skin Exam: no breakdown Neuro oriented x3, CN's II-XII intact bilaterally, moves all extremities, no focal motor deficits and no sensory deficits noted Sensorium / Orientation: awake, alert, oriented to person, oriented to place and oriented to time Speech: speech normal Motor Exam: strength 5/5 throughout and general weakness Psych thought process normal, cooperative and affect normal Appearance: appropriate Assessment & Plan Assessment/Plan (1) CHF exacerbation: QUALIFIERS: Heart failure type: systolic Qualified Code(s): I 50.23 - Acute on chronic systolic (congestive) heart failure PLAN: Plan #Hypoxia due to right lower lobe pneumonia and acute COPD exacerbation * Was admitted with shortness of breath. CTA of the chest showed no PE but showed evidence of right lower lobe pneumonia * Currently on PO levofloxacin * wbc is down to 12 today, from 12.8 yesterday. * was transfered to ICU yesterday due to concerns about worsening shortness of breath. She was on airvo but has been weaned down to 2L of oxygen this morning * 2D echo showed EF of 35-40% with moderate hypokinesia of hte left ventricle * breathing treatment with bronchodilators. Titrate oxygen to maintain sats >90% * IV solumedrol. Breathing treatment with bronchodilators. * #Acute exacerbation of HFrEF * Patient's proBNP was 9000 on admission and is now over 21,000. She was started on diuresis with IV Lasix 40 twice daily * 2D echo as above which shows EF of 35 to 40% with moderate hypokinesis of the left ventricle. * Continue diuresis with IV Lasix 40 mg twice daily. Last EF per records was from an echo done in 2020 which showed EF of 70% and no evidence of hypokinesia. * fluid restriction to 1500cc daily. * Titrate oxygen to maintain sats >90% * Cardiology on board. Patient started on Entresto and carvedilol as well as jardiance. Per cardiology, to have cardiac cath once her respiratory status has improved. * #Hyperkalemia: * Potassium is 5.3 today. * Will DC potassium supplements and give p.o. Kayexalate 30 mg x 1 and trend potassium. * #UTI * urine cultures growing Proteus which is sensitive to levofloxacin. * will continue PO levofloxacin * # Benign essential hypertension: * metoprolol and cardizem dc'd. Patient now on PO carvedilol. * IV hydralazine prn #Type 2 diabetes mellitus with neuropathy * On Lantus. Also on sitagliptin and empagliflozin as well as tirzepatide At home. These were held * on ISS. Accuchecks ACHS. * on gabapentin * #History of left sided breast cancer: s/p lumpectomy in 2003. #History of multinodular goiter. stable #Glaucoma: on netarsudil-latanoprost eye drops. #History of neurogenic bladder: stable #GERD: On PPI #DVT prophylaxis: Heparin Charges/Coding Visit Charges Inpatient E&M: 87346 Subs Hosp L2
[2025-01-23] MEDS: Insulin Glargine-YFGN 100 UNIT/ML Pen 12 UNIT SC ×2 (11:47→21:48)
[2025-01-23 12:07] LABS: Bedside Glucose 291 mg/dL (74-106)
--- NOTE | 2025-01-23 15:28 | PN.CARD_ITS ---
Subjective Subjective Seen and evaluated at bedside today and she is feeling better Objective Data Vital Signs: Vital Signs Temp Pulse Resp BP Pulse Ox O2 Del Method O2 Flow Rate 98.6 F 87 18 114/56 L 94 Room Air 2 01/23/25 14:00 01/23/25 14:00 01/23/25 14:00 01/23/25 14:00 01/23/25 14:00 01/23/25 14:00 01/22/25 11:00 FiO2 24 01/22/25 02:00 Oxygen Flow Rate (L/min) 2 Oxygen Delivery Method Room Air Weight: 169 lb 12.095 oz Body Mass Index (BMI) 30.0 Intake & Output: Intake and Output for Last 24 Hours 01/21/25 01/22/25 01/23/25 23:59 23:59 23:59 Intake Total 940 / 1190 790 / 1040 1000 / 1000 Output Total 2200 / 3075 1925 / 1925 1700 / 1700 Balance -1260 / -1885 -1135 / -885 -700 / -700 Lab / Micro Data 01/23/25 05:29 01/23/25 05:29 Labs: Laboratory Results - last 24 hr 01/22/25 16:41: POC Glucose 269 H 01/22/25 21:11: POC Glucose 310 H 01/23/25 05:29: WBC 12.0 H, RBC 4.80, Hgb 13.1, Hct 41.8, MCV 87.1, MCH 27.3, M CHC 31.3 L, RDW Std Deviation 50.2 H, RDW Coeff of Vijay 15.8 H, Plt Count 322, MPV 11.6, Immature Gran % (Auto) 0.200, Neut % (Auto) 90.8 H, Lymph % (Auto) 6.2 L, [place] % (Auto) 2.7, Eos % (Auto) 0.0, Baso % (Auto) 0.1, Absolute Neuts (auto) 10.9 H, Absolute Lymphs (auto) 0.74 L, Nucleated RBC % 0, Sodium 135, Potassium 5.2 H, Chloride 98, Carbon Dioxide 25.4, Anion Gap 12, BUN 44 H, Creatinine 1.32 H, Estim Creat Clear Calc 32.84 L, Est GFR (MDRD) Non-Af 41 L, BUN/Creatinine Ratio 33.0 H, Glucose 200 H, Calcium 10.8 01/23/25 06:36: POC Glucose 214 H 01/23/25 11:45: POC Glucose 291 H Micro: Microbiology 01/20/25 04:58 Blood Culture (Wb) - Anticubital Right Blood Culture - Preliminary No growth in 48 hours. 01/20/25 00:30 Blood Culture (Wb) - Right Hand Blood Culture - Preliminary No growth in 48 hours. 01/20/25 00:05 Blood Culture (Wb) - Right Hand Blood Culture - Preliminary No growth in 48 hours. Rhythm Strip Rhythm Strip: Sinus Rhythm Cardiology Labs/Tests 01/23/25 05:29: WBC 12.0 H, RBC 4.80, Hgb 13.1, Hct 41.8, MCV 87.1, MCH 27.3, M CHC 31.3 L, Plt Count 322, MPV 11.6, Immature Gran % (Auto) 0.200, Neut % (Auto) 90.8 H, Lymph % (Auto) 6.2 L, [place] % (Auto) 2.7, Eos % (Auto) 0.0, Baso % (Auto) 0.1, Absolute Neuts (auto) 10.9 H, Nucleated RBC % 0, Sodium 135, Potassium 5.2 H, Chloride 98, Carbon Dioxide 25.4, Anion Gap 12, BUN 44 H, Creatinine 1.32 H, Est GFR (MDRD) Non-Af 41 L, BUN/Creatinine Ratio 33.0 H, Glucose 200 H, Calcium 10.8 Rhythm: EKG: ECHO: Stress Test: Cardiac Cath: PCI: CT Surgery: Holter monitor: EPS: PPM: CXR: Chest CT Scan: Physical Exam Cardio Cardio Narrative: Cardiac rhythm is sinus rhythm Cardiovascular exam S1-S2 is regular Chest exam showed diminished air entry bilateral. No lower extremity edema Assessment & Plan Assessment/Plan (1) Acute hypoxic on chronic hypercapnic respiratory failure: (2) Pneumonia: QUALIFIERS: Pneumonia type: due to unspecified organism L aterality: right Lung location: lower lobe of lung Qualified Code(s): J18.9 - Pneumonia, unspecified organism (3) CHF exacerbation: QUALIFIERS: Heart failure type: systolic Qualified Code(s): I 50.23 - Acute on chronic systolic (congestive) heart failure PLAN: Plan Cardiac care plan; 80-year-old patient seen and evaluated today. Patient has acute exacerbation of heart failure reduced EF/HFrEF Echocardiographic evaluation showed ejection fraction in the range of 35-40% Moderate global LV hypokinesia. Currently she has been on guideline directed medical therapy Remarkable change in the echocardiogram from previous echocardiogram which was in 2020 her EF at that time was 70%. Patient currently on CHF protocol with fluid restriction in addition patient has been on guideline directed medical therapy including Entresto, beta-jefe metoprolol, diuretic with Lasix monitoring of the lites and renal function patient also had a history of pneumonia And has been on antibiotic with levofloxacin Continue medical treatment and once stable clinically she can be set up for further cardiac evaluation possible cardiac catheterization which can be set up as an outpatient. Patient has elevated creatinine at 1.32 and estimated moderate GFR Mild elevation of high sensitive troponin likely demand myocardial ischemia in the setting of pneumonia and renal insufficiency. From cardiac standpoint to continue guideline directed medical therapy and once stable to set up an appointment to be seen by supervisor shed workers as an outpatient and discussed further plan possible Lexiscan sestamibi and based on results of Lexiscan sestamibi to consider further evaluation. To minimize risk of contrast-induced nephropathy. Becca Silverman MD,FACC,[facility]
[2025-01-23 17:28] LABS: Bedside Glucose 314 mg/dL (74-106)
[2025-01-23] MEDS: 0.9% Saline Lock 10 ML Syringe IV (17:45)
[2025-01-23] MEDS: Pravastatin 20 MG Tablet PO (21:47)
[2025-01-23] MEDS: levoFLOXacin 750 MG Tablet PO (21:47)
[2025-01-23] MEDS: Gabapentin 100 MG Capsule PO (21:47)
[2025-01-23 22:00] LABS: Bedside Glucose 294 mg/dL (74-106)
[2025-01-24 03:00] VITALS: BP 97/61; PULSE 80; RESP 16; TEMP 36.6; O2SAT 97
[2025-01-24 05:23] VITALS: BMI 30.7
[2025-01-24 06:32] VITALS: PULSE 96; RESP 14; O2SAT 97
[2025-01-24] MEDS: Ipratropium/Albuterol Sulfate 3 ML AMPUL.NEB INHALATION ×2 (06:32→12:54)
[2025-01-24 06:34] LABS: Bedside Glucose 143 mg/dL (74-106)
[2025-01-24 06:51] LABS: Absolute Lymphocyte Count 2.19 X10^3/uL (0.83-4.51); Absolute Neutrophil Count 8.2 X10^3/uL (2.0-7.7); Basophil# 0.02 X10^3/uL; Basophil% 0.2 % (0-1); Eosinophil# 0.02 X10^3/uL; Eosinophils% 0.2 % (0-5); Hematocrit 40.7 % (37-47); Hemoglobin 12.7 g/dL (12.0-15.0); Lymphocyte # 2.19 X10^3/ul (0.83-4.51); Lymphocyte % 19.3 % (19-41); Mean Corp Hgb Conc 31.2 g/dL (32-36); Mean Corpuscular Hgb 27.4 pg (27.0-32.0); Mean Corpuscular Volume 87.7 fL (81-99); Mean Platelet Vol. 10.9 fl (6.2-12.0); Monocyte# 0.84 X10^3/uL; Monocyte% 7.4 % (0-10); NRBC Flagged by Analyzer 0 % (0-5); Neutrophil # 8.22 X10^3/uL (2.7-7.7); Neutrophil % 72.5 % (47-70); Platelet Count 297 K/mm3 (150-450); RBC Distribution Width CV 15.8 % (11.6-14.6); RBC Distribution Width SD 50.9 fl (35.1-43.9); Red Blood Count 4.64 M/mm3 (4.2-5.4); White Blood Count 11.3 K/mm3 (4.4-11.0)
[2025-01-24 07:13] LABS: Anion Gap 12 (5-15); BUN 46 mg/dL (4-19); BUN/Creat Ratio 35.2 RATIO (10-20); Calcium,Total 10.1 mg/dL (7.6-11.0); Carbon Dioxide 23.7 mmol/L (21.0-32.0); Chloride 102 mmol/L (98-108); Creatinine, Serum 1.31 mg/dL (0.70-1.20); EST Glomerular Filtration Rate 41 (>60); Estimated Creatinine Clearance 33.41 ml/min (50-250); Glucose 133 mg/dL (70-99); Potassium 3.5 mmol/L (3.3-5.1); Sodium Level 138 mmol/L (133-145)
[2025-01-24 09:41] VITALS: BP 102/65; PULSE 91; RESP 16; TEMP 36.3; O2SAT 96
[2025-01-24] MEDS: Azelastine HCl NASAL.SRY 2 SPRAY NASAL (09:45)
[2025-01-24] MEDS: Multivitamins,Therapeutic Tablet 1 TABLET PO (09:46)
[2025-01-24] MEDS: Aspirin 81 MG TAB.CHEW PO (09:46)
[2025-01-24] MEDS: SACUBITRIL/VALSARTAN 24/26 MG TABLET 1 EACH PO (09:47)
[2025-01-24] MEDS: predniSONE 20 MG Tablet 40 MG PO (09:47)
[2025-01-24] MEDS: ROFLUMILAST 500 MCG TABLET PO (09:47)
[2025-01-24] MEDS: Carvedilol 6.25 MG Tablet PO (09:47)
[2025-01-24] MEDS: Pantoprazole Sodium 40 MG Tablet PO (09:48)
[2025-01-24] MEDS: guaiFENesin 600 MG Tablet PO (09:48)
[2025-01-24] MEDS: Magnesium Chloride 64 MG Delay Rel.Tablet 128 MG PO (09:48)
[2025-01-24] MEDS: Psyllium 1 PACKET PO (09:48)
[2025-01-24] MEDS: Furosemide 40 MG Tablet PO (09:48)
[2025-01-24] MEDS: Empagliflozin 10 MG Tablet PO (09:48)
[2025-01-24] MEDS: Ascorbic Acid 500 MG Tablet 250 MG PO (09:49)
[2025-01-24] MEDS: Cyanocobalamin 500 MCG Tablet 1000 MCG PO (09:49)
[2025-01-24] MEDS: Heparin Injection (Vial) 5,000 UNIT/ML VIAL 5000 UNIT SC (09:51)
[2025-01-24 11:15] VITALS: O2SAT 96; O2SAT 97
[2025-01-24] MEDS: Insulin Lispro 100 UNIT/ML INSULN.PEN SC (11:26)
[2025-01-24] MEDS: Insulin Glargine-YFGN 100 UNIT/ML Pen 12 UNIT SC (11:26)
[2025-01-24 12:21] LABS: Bedside Glucose 167 mg/dL (74-106)
[2025-01-24 12:54] VITALS: PULSE 86; RESP 16
--- NOTE | 2025-01-24 13:26 | DCINST_ITS ---
Discharge Instructions Diet Discharge Diet: Low fat / Low cholesterol DC O2, CPAP, BIPAP needs Home O2 Discharge instructions: No Dressing / Incision Discharge Activity: Return to Normal Activity Weight Bearing Status: Weight bearing as tolerated Dressing / Incision Call your doctor if you observe: Fever of 101 or Higher, Shortness of breath, Dizziness, Swelling in the ankles, Chest pain and Increased palpitations (irregular heartbeat) Follow Up Care Test Results: Test results from this visit will be discussed in further detail at your follow- up appointment, if applicable. Discharge Plan Admission Admit Date/Time: 01/20/25 03:32 Primary Reason for Your Visit: heart failure, Acute HFrEF Attending Provider: Melba Hartmann Primary Care Provider: Ramone Smiley Consulting Providers: Sandeep Carlton; Lucio Borden; Marcelina Soto Instructions Patient Instructions: Coping with Heart Failure, ED Pneumonia (Adult) Discharge Orders/Prescriptions Prescriptions: New furosemide 40 mg Tablet 40 mg PO BIDLX Qty: 60 2RF prednisone 20 mg Tablet 40 mg PO BREAKFAST 5 Days Qty: 10 0RF levofloxacin 750 mg Tablet 750 mg PO QODAY@2200 Qty: 2 0RF Entresto 24-26 mg Tablet 1 tab PO BID Qty: 60 2RF potassium chloride [K-Tab] 20 mEq tablet extended release 20 meq PO DAILY Qty: 30 2RF Continued Januvia 50 mg tablet 50 mg PO DAILY Jardiance 10 mg tablet 10 mg PO DAILY multivitamin Tablet 1 tab PO DAILY pravastatin 20 mg tablet 20 mg PO DAILY aspirin 81 MG tablet,chewable 81 mg PO DAILY metoprolol tartrate 25 MG tablet 25 mg PO BID magnesium oxide 400 MG tablet 400 mg PO BID pantoprazole 40 MG tablet 40 mg PO DAILY gabapentin 100 mg capsule 100 mg PO QHS roflumilast 500 mcg tablet 500 mcg PO DAILY ascorbic acid (vitamin C) [Vitamin C] 250 mg tablet 250 mg PO DAILY insulin lispro [Humalog KwikPen Insulin] 100 unit/mL Insulin Pen 10 unit subcut TIDAC Rx Instructions: Hold if glucose less than 120 mg/dl Mounjaro 5 mg/0.5 mL pen injector 5 mg subcut QWEEK Patient Comments: PT STATES SHE SOMETIMES TAKES IT ON THURSDAY, SOMETIMES ON FRIDAYS. menthol-zinc oxide [CalaSoothe] 0.44-20.6 % ointment 1 applic topical 4X/DAY PRN (Reason: skin irritation) psyllium husk [Daily Fiber] 0.4 gram capsule 0.4 g PO DAILY mecobalamin (vitamin B12) [B12 Active] 1,000 mcg tablet,chewable 1,000 mcg PO DAILY azelastine 137 mcg (0.1 %) spray,non-aerosol 1 - 2 spray INTRANASAL BID acetaminophen 500 mg Tablet 1,000 mg PO Q6H PRN (Reason: Pain Score 1-3) Rocklatan 0.02-0.005 % Drops 1 drp EACH EYE DAILY diltiazem HCl 180 mg capsule,ext.rel 24h degradable 180 mg PO DAILY ipratropium bromide 21 mcg (0.03 %) spray,non-aerosol 1 - 2 spray INTRANASAL Q6H PRN (Reason: allergy symptoms) insulin glargine [Lantus Solostar U-100 Insulin] 100 unit/mL (3 mL) insulin pen 20 unit subcut BID (DME) lancets [TRUEplus Lancets] 28 gauge misc MISCELLANEOUS Breztri Aerosphere 160-9-4.8 mcg/actuation HFA aerosol inhaler 2 inh inhalation BID Discontinued potassium chloride 20 mEq packet 20 meq PO BID Qty: 30 0RF furosemide [Lasix] 40 mg tablet 40 mg PO DAILY Qty: 5 0RF Referrals / Follow Up: Se Good MD [Med Staff - Active Staff] - Within 2 Weeks Ramone Smiley MD [Primary Care Provider] - Within 1 Week Disposition Disposition (needs filled in before D/C Order can be placed): Home, Self Care
--- NOTE | 2025-01-24 13:30 | PCM.DC.SUM ---
Providers Date of Admission: 01/20/25 Date of Discharge: 01/24/25 Primary Care Physician: Dr. Ramone Smiley MD Consultations 01/21/25 11:22 Consult: Cardiology Routine Consulting Provider: Marcelina Soto Reason for Consult: acute HFpEF EMERGENT Consult: No MD Notified: Yes Date Notified: 01/21/25 Time Notified: 11:22 Method of Notification: Text Comments:: dr. valdes states she notified him Dr Kristian Frances Reason For Visit: RLL PNA, AE ASTHMA/COPD, ACUTE HYPOXIC/HYPERCAPNIC Diagnosis Discharge Diagnosis (1) Acute hypoxic on chronic hypercapnic respiratory failure: Status: Acute Code(s): J96.01 - Acute respiratory failure with hypoxia; J96.12 - Chronic respiratory failure with hypercapnia (2) Pneumonia: Status: Acute Code(s): J18.9 - Pneumonia, unspecified organism Qualifiers: Laterality: right Lung location: lower lobe of lung Pneumonia type: due to unspecified organism Qualified Code(s): J18.9 - Pneumonia, unspecified organism (3) CHF exacerbation: Status: Chronic Code(s): I50.9 - Heart failure, unspecified Qualifiers: Heart failure type: systolic Qualified Code(s): I50.23 - Acute on chronic systolic (congestive) heart failure Plan #Hypoxia due to right lower lobe pneumonia and acute COPD exacerbation Was admitted with shortness of breath. CTA of the chest showed no PE but showed evidence of right lower lobe pneumonia Currently on PO levofloxacin wbc is down to 12 today, from 12.8 yesterday. was transfered to ICU yesterday due to concerns about worsening shortness of breath. She was on airvo but has been weaned down to 2L of oxygen this morning 2D echo showed EF of 35-40% with moderate hypokinesia of hte left ventricle breathing treatment with bronchodilators. Titrate oxygen to maintain sats >90% IV solumedrol. Breathing treatment with bronchodilators. #Acute exacerbation of HFrEF Patient's proBNP was 9000 on admission and is now over 21,000. She was started on diuresis with IV Lasix 40 twice daily 2D echo as above which shows EF of 35 to 40% with moderate hypokinesis of the left ventricle. Continue diuresis with IV Lasix 40 mg twice daily. Last EF per records was from an echo done in 2020 which showed EF of 70% and no evidence of hypokinesia. fluid restriction to 1500cc daily. Titrate oxygen to maintain sats >90% Cardiology on board. Patient started on Entresto and carvedilol as well as jardiance. Per cardiology, to have cardiac cath once her respiratory status has improved. #Hyperkalemia: Potassium is 5.3 today. Will DC potassium supplements and give p.o. Kayexalate 30 mg x 1 and trend potassium. #UTI urine cultures growing Proteus which is sensitive to levofloxacin. will continue PO levofloxacin # Benign essential hypertension: metoprolol and cardizem dc'd. Patient now on PO carvedilol. IV hydralazine prn #Type 2 diabetes mellitus with neuropathy On Lantus. Also on sitagliptin and empagliflozin as well as tirzepatide At home. [facility] #History of left sided breast cancer: s/p lumpectomy in 2003. #History of multinodular goiter. stable #Glaucoma: on netarsudil-latanoprost eye drops. #History of neurogenic bladder: stable #GERD: On PPI #DVT prophylaxis: Heparin Medications at Discharge Home Medications aspirin 81 mg chewable tablet 81 mg PO DAILY [facility] 01/21/16 magnesium oxide 400 mg (241.3 mg magnesium) tablet 400 mg PO BID SUPPLEMENT 08/16/18 metoprolol tartrate 25 mg tablet 25 mg PO BID BLOOD PRESSURE 08/16/18 pantoprazole 40 mg tablet,delayed release 40 mg PO DAILY ACID REFLUX 12/02/19 empagliflozin 10 mg tablet (Jardiance) 10 mg PO DAILY DIABETES 10/18/20 sitagliptin phosphate 50 mg tablet (Januvia) 50 mg PO DAILY DIABETES 10/18/20 multivitamin 1 tab PO DAILY VITAMIN 12/06/21 pravastatin 20 mg tablet 20 mg PO DAILY CHOLESTEROL 12/06/21 ascorbic acid (vitamin C) 250 mg tablet (Vitamin C) 250 mg PO DAILY SUPPLEMENT 08/13/23 gabapentin 100 mg capsule 100 mg PO QHS NERVE PAIN 08/13/23 roflumilast 500 mcg tablet 500 mcg PO DAILY COPD 08/13/23 insulin lispro 100 unit/mL subcutaneous pen (Humalog KwikPen (U-100) Insulin) 10 unit subcut TIDAC short acting insulin 12/30/23 budesonide 160 mcg-glycopyr 9 mcg-formot 4.8 mcg/actuation HFA inhaler (Breztri Aerosphere) 2 inh inhalation BID 01/07/25 diltiazem HCl 180 mg capsule,extended release 24 hr, controlled 180 mg PO DAILY 01/07/25 insulin glargine 100 unit/mL (3 mL) subcutaneous pen (Lantus Solostar U-100 Insulin) 20 unit subcut BID 01/07/25 ipratropium bromide 21 mcg (0.03 %) nasal spray 1 - 2 spray intranasal Q6H PRN allergy symptoms 01/07/25 lancets 28 gauge (TRUEplus Lancets) 01/07/25 acetaminophen 500 mg tablet 1,000 mg PO Q6H PRN Pain Score 1-3 01/15/25 azelastine 137 mcg (0.1 %) nasal spray 1 - 2 spray intranasal BID 01/15/25 mecobalamin (vitamin B12) 1,000 mcg chewable tablet (B12 Active) 1,000 mcg PO DAILY 01/15/25 menthol 0.44 %-zinc oxide 20.6 % topical ointment (CalaSoothe) 1 applic topical 4X/DAY PRN skin irritation 01/15/25 netarsudil 0.02 %-latanoprost 0.005 % eye drops (Augustalatan) 1 drp EACH EYE DAILY 01/15/25 psyllium husk 0.4 gram capsule (Daily Fiber) 0.4 g PO DAILY 01/15/25 tirzepatide 5 mg/0.5 mL subcutaneous pen injector (Prabhu) 5 mg subcut QWEEK 01/15/25 furosemide 40 mg tablet 40 mg PO BIDLX #60 tabs 01/24/25 levofloxacin 750 mg tablet 750 mg PO QODAY@2200 #2 tabs 01/24/25 potassium chloride 20 mEq tablet,extended release (K-Tab) 20 meq PO DAILY #30 tabs 01/24/25 prednisone 20 mg tablet 40 mg (2 x 20 mg) PO BREAKFAST 5 days #10 tabs 01/24/25 sacubitril 24 mg-valsartan 26 mg tablet (Entresto) 1 tab PO BID #60 tabs 01/24/25 Hospital Course Operations None Procedures None Summary of Care Provided Minutes Spent on Discharge: 45 Hospital Course: Patient is an 80-year-old female with past medical history as outlined who was admitted through the ED on 01/20/2025 with complaint of shortness of breath for 5 days prior to admission. Shortness of breath worsened with exertion. She had recently completed a course of steroids and antibiotics after presenting to the ED with similar complaints. She had previously been seen in the ED as stated and found to have elevated proBNP of 4224 and chest x-ray showed cardiomegaly with mild congestion so she was diuresed and discharged home on p.o. Lasix. However shortness of breath recurred so she came back into the ED. She was found to be hypoxic by the EMS, saturating at 69% on room air and being able to only speak 1 word sentences so she was placed on BiPAP. She says she had been taking her Lasix as prescribed. CTA of the chest showed no evidence of PE and showed very small bilateral pleural effusions and motion at the bases with a small area of consolidation of the right posterior lung which may represent atelectasis with developing pneumonia not excluded. She was admitted to be managed for acute exacerbation of COPD as well as acute on chronic hypoxic and hypercapnic respiratory failure as well as right lower lobe pneumonia. ABG showed pH of 7.31 with PCO2 of 63. She was placed on BiPAP. Her initial troponin was 52 and increased to 71. She was started on IV Solu-Medrol and IV Lasix. She was also started on p.o. levofloxacin. She had 2D echo which showed mildly dilated left ventricle and EF of 35 to 40% with no evidence of diastolic dysfunction and moderate global hypokinesis of the left ventricle as well as mild aortic stenosis and trivial mitral and aortic valve insufficiency. Patient was transferred to the ICU on account of worsening shortness of breath requiring BiPAP. However his shortness of breath improved and she was weaned off of oxygen on room air. She was therefore transferred back to the PCU. Cardiology was consulted. She was started on Entresto and carvedilol as well as Jardiance. Cardiology was considering cardiac cath once her respiratory status improved. She was switched to p.o. prednisone also. Cardiology however decided that in light of her mildly elevated creatinine of 1.3, they would prefer that her kidney function be optimized on outpatient basis and she was to follow-up with cardiology on outpatient basis for the cardiac cath to be scheduled. Patient was therefore discharged home on 01/24/2025. She was discharged on p.o. Lasix 40 mg twice daily with potassium supplementation. She was also discharged on Entresto and metoprolol as well as Jardiance. She was discharged with a prescription for p.o. levofloxacin 750 mg daily x 2 tablets to complete the course of antibiotics. She was also discharged on PO prednisone 40mg daily x 5 days. She is to follow up with her PCP within 1-2 weeks. SHe is also to follow up with cardiology within 1-2 weeks to be evaluated to schedule the cardiac cath on outpatient basis. Patient seen and examined prior to discharge. She had no active complaints and had an uneventful night. Review of systems is otherwise negative. Labs and vitals reviewed. Home meds reviewed and reconciled. Physical Exam Const alert, oriented x3, no apparent distress and well nourished General Appearance: cooperative, comfortable, well kempt and well developed Orientation / Consciousness: awake HEENT normocephalic, head/scalp atraumatic, hearing grossly normal bilaterally, moist oral mucous membranes, oropharynx normal and gingiva normal Mouth: oral and palatal mucosa normal Eyes PERRL, EOMs intact bilaterally and conjunctivae normal Neck no lymphadenopathy, supple and no JVD Lymph Lymphatic: no lymphadenopathy noted and no lymphedema noted Resp Resp Narrative: mildly diminished breath sounds bibasally, no wheezes or crackles. On room air Cardio regular rate, regular rhythm, S1 normal heart sound, S2 normal heart sound and no murmurs GI normal to inspection, nondistended, normoactive bowel sounds, soft to palpation, non-tender and non-distended GI Narrative: Obese. Extremity normal to inspection, full ROM and no clubbing, cyanosis or edema Extremity Narrative: lower extremities have no edema, hyperpigmented lower extremities, distal pulses palpable. General Extremity: no tenderness to palpation of joints or extremities Skin no rashes or lesions noted General Skin Exam: no breakdown Neuro oriented x3, CN's II-XII intact bilaterally, moves all extremities, no focal motor deficits and no sensory deficits noted Sensorium / Orientation: awake, alert, oriented to person, oriented to place and oriented to time Speech: speech normal Motor Exam: strength 5/5 throughout and general weakness Psych thought process normal, cooperative and affect normal Appearance: appropriate Weight / BMI Weight Weight: 173 lb 1.006 oz Body Mass Index (BMI) 30.7 ABG / Lab / Microbiology Data 01/24/25 06:20 01/24/25 06:20 Laboratory: Laboratory Results - last 24 hr 01/23/25 16:31: POC Glucose 314 H 01/23/25 21:40: POC Glucose 294 H 01/24/25 06:14: POC Glucose 143 H 01/24/25 06:20: WBC 11.3 H, RBC 4.64, Hgb 12.7, Hct 40.7, MCV 87.7, MCH 27.4, MCHC 31.2 L, RDW Std Deviation 50.9 H, RDW Coeff of Vijay 15.8 H, Plt Count 297, MPV 10.9, Immature Gran % (Auto) 0.400, Neut % (Auto) 72.5 H, Lymph % (Auto) 19.3, Blaine % (Auto) 7.4, Eos % (Auto) 0.2, Baso % (Auto) 0.2, Absolute Neuts (auto) 8.2 H, Absolute Lymphs (auto) 2.19, Nucleated RBC % 0, Sodium 138, Potassium 3.5, Chloride 102, Carbon Dioxide 23.7, Anion Gap 12, BUN 46 H, Creatinine 1.31 H, Estim Creat Clear Calc 33.41 L, Est GFR (MDRD) Non-Af 41 L, BUN/Creatinine Ratio 35.2 H, Glucose 133 H, Calcium 10.1 01/24/25 11:24: POC Glucose 167 H Microbiology: Microbiology 01/20/25 04:58 Blood Culture (Wb) - Anticubital Right Blood Culture - Preliminary No growth in 48 hours. 01/20/25 00:30 Blood Culture (Wb) - Right Hand Blood Culture - Preliminary No growth in 48 hours. 01/20/25 00:05 Blood Culture (Wb) - Right Hand Blood Culture - Preliminary No growth in 48 hours. 01/20/25 01:58 Urine, Catheterized Urine Culture - Final Proteus mirabilis 01/20/25 04:35 Mucosa - Nasopharyngeal Respiratory Panel (PCR) - Final 01/20/25 01:58 Urine Catheter - Serna Legionella Antigen - Final 01/20/25 01:58 Urine Catheter - Serna Streptococcus pneumoniae Antigen (M - Final D/C Instructions Discharge Diet: Low fat / Low cholesterol Discharge Activity: Return to Normal Activity Weight Bearing Status: Weight bearing as tolerated Call your doctor if you observe: Fever of 101 or Higher, Shortness of breath, Dizziness, Swelling in the ankles, Chest pain and Increased palpitations (irregular heartbeat) DC O2, CPAP, BIPAP Needs Home O2 Discharge instructions: No DC home with Oxygen: No Meaningful Use Info Meaningful Use Meaningful Use Diagnoses (Choose all that apply): CHF CHF ALBA/ARB ordered at discharge?: Yes Documented LVEF (%): 35 Ischemic Stroke Statin Dosing Therapy Reference: STATIN DOSE THERAPY REFERENCE: * Patients > 75 years receive moderate or high dose statin therapy. * Patients 75 years or YOUNGER should receive HIGH intensity statin dose unless contraindicated. You will be required to document reason for non-treatment if statin daily dose does not meet guidelines. HIGH DOSE STATIN THERAPY DAILY Atorvastatin > than or = to 40 mg Rosuvastatin > than or = to 20 mg Amlodipine + Atorvastatin > than or = to 2.5/40 mg Ezetimibe + Simvastatin 10/80 mg Simvastatin 80mg Discharge Plan Admission Admit Date/Time: 01/20/25 03:32 Primary Reason for Your Visit: heart failure, Acute HFrEF Attending Provider: Melba Hartmann Primary Care Provider: Ramone Smiley Consulting Providers: Sandeep Carlton; Lucio Borden; Marcelina Soto Instructions Patient Instructions: Coping with Heart Failure, ED Pneumonia (Adult) Discharge Orders/Prescriptions Prescriptions: New furosemide 40 mg Tablet 40 mg PO BIDLX Qty: 60 2RF prednisone 20 mg Tablet 40 mg PO BREAKFAST 5 Days Qty: 10 0RF levofloxacin 750 mg Tablet 750 mg PO QODAY@2200 Qty: 2 0RF Entresto 24-26 mg Tablet 1 tab PO BID Qty: 60 2RF potassium chloride [K-Tab] 20 mEq tablet extended release 20 meq PO DAILY Qty: 30 2RF Continued Januvia 50 mg tablet 50 mg PO DAILY Jardiance 10 mg tablet 10 mg PO DAILY multivitamin Tablet 1 tab PO DAILY pravastatin 20 mg tablet 20 mg PO DAILY aspirin 81 MG tablet,chewable 81 mg PO DAILY metoprolol tartrate 25 MG tablet 25 mg PO BID magnesium oxide 400 MG tablet 400 mg PO BID pantoprazole 40 MG tablet 40 mg PO DAILY gabapentin 100 mg capsule 100 mg PO QHS roflumilast 500 mcg tablet 500 mcg PO DAILY ascorbic acid (vitamin C) [Vitamin C] 250 mg tablet 250 mg PO DAILY insulin lispro [Humalog KwikPen Insulin] 100 unit/mL Insulin Pen 10 unit subcut TIDAC Rx Instructions: Hold if glucose less than 120 mg/dl Mounjaro 5 mg/0.5 mL pen injector 5 mg subcut QWEEK Patient Comments: PT STATES SHE SOMETIMES TAKES IT ON THURSDAY, SOMETIMES ON FRIDAYS. menthol-zinc oxide [CalaSoothe] 0.44-20.6 % ointment 1 applic topical 4X/DAY PRN (Reason: skin irritation) psyllium husk [Daily Fiber] 0.4 gram capsule 0.4 g PO DAILY mecobalamin (vitamin B12) [B12 Active] 1,000 mcg tablet,chewable 1,000 mcg PO DAILY azelastine 137 mcg (0.1 %) spray,non-aerosol 1 - 2 spray INTRANASAL BID acetaminophen 500 mg Tablet 1,000 mg PO Q6H PRN (Reason: Pain Score 1-3) Rocklatan 0.02-0.005 % Drops 1 drp EACH EYE DAILY diltiazem HCl 180 mg capsule,ext.rel 24h degradable 180 mg PO DAILY ipratropium bromide 21 mcg (0.03 %) spray,non-aerosol 1 - 2 spray INTRANASAL Q6H PRN (Reason: allergy symptoms) insulin glargine [Lantus Solostar U-100 Insulin] 100 unit/mL (3 mL) insulin pen 20 unit subcut BID (DME) lancets [TRUEplus Lancets] 28 gauge misc MISCELLANEOUS Breztri Aerosphere 160-9-4.8 mcg/actuation HFA aerosol inhaler 2 inh inhalation BID Discontinued potassium chloride 20 mEq packet 20 meq PO BID Qty: 30 0RF furosemide [Lasix] 40 mg tablet 40 mg PO DAILY Qty: 5 0RF Referrals / Follow Up: Se Good MD [Med Staff - Active Staff] - 01/31/25 2:00 pm (appointment with Whitney Cao N.P. ) Ramone Smiley MD [Primary Care Provider] - 01/31/25 4:20 pm Disposition Disposition (needs filled in before D/C Order can be placed): Home, Self Care Charges/Coding Visit Charges Inpatient E&M: 21287 Disch Hosp >30min
--- NOTE | 2025-01-24 13:32 | CASEMGMT ---
Pt has an order for DC placed. Per the bilingual instructor, pt does not qualify for home oxygen. TC to Diana at [facility]. Diana reports that the SOC date needs to be pushed back to . RN CM to pt room at this time. Pt states that she is OK with this. Pt states that her family plans to drive her home. Pt states that she still feels safe returning home with her with the skilled HHC and denies further questions, concerns, or needs at this time. PLAN: Home with skilled HHC (SN, PT, and OT) through [facility] with SOC on .
[2025-01-24 13:57] VITALS: BP 111/68; PULSE 87; RESP 16; TEMP 36.3; O2SAT 97
--- NOTE | 2025-01-24 14:51 | PHA.DC.MC.R ---
Pharmacy [facility] Counseling Pharmacy Service has performed discharge medication reconciliation and counseling for this patient. 1. ENTRESTO 24/26MG PO BID 2. LEVOFLOXACIN 750MG PO QODAY (01/25 AND 01/27) X 2 DOSES 3. PREDNISONE 40MG PO BREAKFAST X 5 DAYS 4. LASIX CHANGED TO BID AND POTASSIUM CHANGED TO DAILY The patient's discharge medication list was reviewed for discrepancies and discrepancies were resolved. The patient was counseled on the following discharge medications and changes in medications for homegoing were reviewed. The Reason for Use, instructions for use, and potential side effects were reviewed for all new medications. The patient's questions regarding all of their medications were answered. The patient was able to verbally demonstrate an understanding of their discharge medications. Medications at Discharge Home Medications aspirin 81 mg chewable tablet 81 mg PO DAILY [facility] 01/21/16 magnesium oxide 400 mg (241.3 mg magnesium) tablet 400 mg PO BID SUPPLEMENT 08/16/18 metoprolol tartrate 25 mg tablet 25 mg PO BID BLOOD PRESSURE 08/16/18 pantoprazole 40 mg tablet,delayed release 40 mg PO DAILY ACID REFLUX 12/02/19 empagliflozin 10 mg tablet (Jardiance) 10 mg PO DAILY DIABETES 10/18/20 sitagliptin phosphate 50 mg tablet (Januvia) 50 mg PO DAILY DIABETES 10/18/20 multivitamin 1 tab PO DAILY VITAMIN 12/06/21 pravastatin 20 mg tablet 20 mg PO DAILY CHOLESTEROL 12/06/21 ascorbic acid (vitamin C) 250 mg tablet (Vitamin C) 250 mg PO DAILY SUPPLEMENT 08/13/23 gabapentin 100 mg capsule 100 mg PO QHS NERVE PAIN 08/13/23 roflumilast 500 mcg tablet 500 mcg PO DAILY COPD 08/13/23 insulin lispro 100 unit/mL subcutaneous pen (Humalog KwikPen (U-100) Insulin) 10 unit subcut TIDAC short acting insulin 12/30/23 budesonide 160 mcg-glycopyr 9 mcg-formot 4.8 mcg/actuation HFA inhaler (Breztri Aerosphere) 2 inh inhalation BID 01/07/25 diltiazem HCl 180 mg capsule,extended release 24 hr, controlled 180 mg PO DAILY 01/07/25 insulin glargine 100 unit/mL (3 mL) subcutaneous pen (Lantus Solostar U-100 Insulin) 20 unit subcut BID 01/07/25 ipratropium bromide 21 mcg (0.03 %) nasal spray 1 - 2 spray intranasal Q6H PRN allergy symptoms 01/07/25 lancets 28 gauge (TRUEplus Lancets) 01/07/25 acetaminophen 500 mg tablet 1,000 mg PO Q6H PRN Pain Score 1-3 01/15/25 azelastine 137 mcg (0.1 %) nasal spray 1 - 2 spray intranasal BID 01/15/25 mecobalamin (vitamin B12) 1,000 mcg chewable tablet (B12 Active) 1,000 mcg PO DAILY 01/15/25 menthol 0.44 %-zinc oxide 20.6 % topical ointment (CalaSoothe) 1 applic topical 4X/DAY PRN skin irritation 01/15/25 netarsudil 0.02 %-latanoprost 0.005 % eye drops (Rocklatan) 1 drp EACH EYE DAILY 01/15/25 psyllium husk 0.4 gram capsule (Daily Fiber) 0.4 g PO DAILY 01/15/25 tirzepatide 5 mg/0.5 mL subcutaneous pen injector (Baoro) 5 mg subcut QWEEK 01/15/25 furosemide 40 mg tablet 40 mg PO BIDLX #60 tabs 01/24/25 levofloxacin 750 mg tablet 750 mg PO QODAY@2200 #2 tabs 01/24/25 potassium chloride 20 mEq tablet,extended release (K-Tab) 20 meq PO DAILY #30 tabs 01/24/25 prednisone 20 mg tablet 40 mg (2 x 20 mg) PO BREAKFAST 5 days #10 tabs 01/24/25 sacubitril 24 mg-valsartan 26 mg tablet (Entresto) 1 tab PO BID #60 tabs 01/24/25
== END 2025-01-24 15:02 | disposition home health service (06) | DRG 189 ==
LOC: ED 01-20 02:53 → PCU 01-20 02:59 → ICU 01-20 17:35 → PCU 01-22 11:58
PROVIDERS: Internal Medicine; Admitting Provider Internal Medicine; Emergency Provider Emergency Medicine; PCP Family Medicine; Visit Provider Student in an Organized Health Care Education/Training Program
DX: J96.01 Acute respiratory failure with hypoxia (principal); I50.21 Acute systolic (congestive) heart failure; J18.9 Pneumonia, unspecified organism; I24.89 Other forms of acute ischemic heart disease; E87.20 Acidosis, unspecified; J44.1 Chronic obstructive pulmonary disease with (acute) exacerbation; I13.0 Hypertensive heart and chronic kidney disease with heart failure and stage 1 through stage 4 chronic kidney disease, or unspecified chronic kidney disease; J44.0 Chronic obstructive pulmonary disease with (acute) lower respiratory infection; N39.0 Urinary tract infection, site not specified; E11.22 Type 2 diabetes mellitus with diabetic chronic kidney disease; N18.31 Chronic kidney disease, stage 3a; D50.9 Iron deficiency anemia, unspecified; I35.0 Nonrheumatic aortic (valve) stenosis; Z68.32 Body mass index [BMI] 32.0-32.9, adult; J96.12 Chronic respiratory failure with hypercapnia; D12.6 Benign neoplasm of colon, unspecified; E11.51 Type 2 diabetes mellitus with diabetic peripheral angiopathy without gangrene; Z79.4 Long term (current) use of insulin; E11.40 Type 2 diabetes mellitus with diabetic neuropathy, unspecified; E11.39 Type 2 diabetes mellitus with other diabetic ophthalmic complication; M48.061 Spinal stenosis, lumbar region without neurogenic claudication; K21.9 Gastro-esophageal reflux disease without esophagitis; E78.5 Hyperlipidemia, unspecified; I25.10 Atherosclerotic heart disease of native coronary artery without angina pectoris; E87.5 Hyperkalemia; I35.2 Nonrheumatic aortic (valve) stenosis with insufficiency; N18.30 Chronic kidney disease, stage 3 unspecified; E11.65 Type 2 diabetes mellitus with hyperglycemia; B96.4 Proteus (mirabilis) (morganii) as the cause of diseases classified elsewhere; Z86.718 Personal history of other venous thrombosis and embolism; Z87.891 Personal history of nicotine dependence; R79.89 Other specified abnormal findings of blood chemistry; Z79.84 Long term (current) use of oral hypoglycemic drugs; H40.9 Unspecified glaucoma; E66.9 Obesity, unspecified; Z79.82 Long term (current) use of aspirin
CPT/HCPCS: 36415; 36600; 71045; 71275; 80048; 80053; 80061; 81001; 82803; 82962; 83036; 83605; 83735; 83880; 84443; 84484; 85025; 85027; 85610; 85730; 87040; 87077; 87086; 87088; 87186; 87449; 87633; 93005; 93306; 94002; 94003; 94640; 94660; 94762; 97802; 99285; Q9967; A4216; J1938

== ENCOUNTER → 2025-01-19 | Outpatient (CLI) | payer MEDICARE, SELFPAY ==
[2025-01-19 18:29] LABS: ALB/GLOB Ratio 0.9 RATIO (0.9-2.4); AST(SGOT) 25 U/L (<=31); Alanine Aminotransfer ALT/SGPT 18 U/L (<=34); Albumin, Serum 3.4 g/dL (3.4-4.8); Alkaline Phosphatase 123 U/L (35-104); Anion Gap 14 (5-15); BUN 8 mg/dL (4-19); BUN/Creat Ratio 7.7 RATIO (10-20); Calcium,Total 10.4 mg/dL (7.6-11.0); Carbon Dioxide 27.2 mmol/L (21.0-32.0); Chloride 96 mmol/L (98-108); Creatinine, Serum 1.06 mg/dL (0.70-1.20); EST Glomerular Filtration Rate 53 (>60); Globulin 3.9 g/dL (2.2-4.2); Glucose 288 mg/dL (70-99); Magnesium 2.3 mg/dL (1.5-2.2); Potassium 3.3 mmol/L (3.3-5.1); Pro- Brain NATRIURETIC PEPTIDE 3173 pg/mL (<=1800); Protein, Total 7.3 g/dL (5.9-8.4); Sodium Level 137 mmol/L (133-145); Total Bilirubin 0.25 mg/dL (0.00-1.30)
[2025-01-19 18:48] LABS: Hematocrit 35.3 % (37-47); Hemoglobin 10.9 g/dL (12.0-15.0); Mean Corp Hgb Conc 30.9 g/dL (32-36); Mean Corpuscular Hgb 27.7 pg (27.0-32.0); Mean Corpuscular Volume 89.6 fL (81-99); Mean Platelet Vol. 11.6 fl (6.2-12.0); Platelet Count 253 K/mm3 (150-450); RBC Distribution Width SD 52.7 fl (35.1-43.9); Red Blood Count 3.94 M/mm3 (4.2-5.4); White Blood Count 8.3 K/mm3 (4.4-11.0)
== END | disposition home or self-care (01) ==
LOC: MFPLAB 15:29
PROVIDERS: PCP Family Medicine; Referring Provider Family Medicine; Visit Provider Family Medicine
DX: I50.9 Heart failure, unspecified (principal)
CPT/HCPCS: 36415; 80053; 83735; 83880; 85027

== ENCOUNTER 2025-01-26 03:00 | Emergency (ER) | payer MEDICARE, SELFPAY ==
[2025-01-26] VITALS (14 sets, daily range): BP systolic 85–120; BP diastolic 38–72; PULSE 78–87; RESP 15–27; TEMP 36.8; O2SAT 95–99; BMI 31.4
[2025-01-26 03:32] LABS: Absolute Lymphocyte Count 2.24 X10^3/uL (0.83-4.51); Absolute Neutrophil Count 5.8 X10^3/uL (2.0-7.7); Basophil# 0.01 X10^3/uL; Basophil% 0.1 % (0-1); Eosinophil# 0.25 X10^3/uL; Eosinophils% 2.8 % (0-5); Hematocrit 37.9 % (37-47); Hemoglobin 11.8 g/dL (12.0-15.0); Lymphocyte # 2.24 X10^3/ul (0.83-4.51); Lymphocyte % 25.1 % (19-41); Mean Corp Hgb Conc 31.1 g/dL (32-36); Mean Corpuscular Hgb 27.3 pg (27.0-32.0); Mean Corpuscular Volume 87.5 fL (81-99); Mean Platelet Vol. 10.8 fl (6.2-12.0); Monocyte% 6.7 % (0-10); NRBC Flagged by Analyzer 0 % (0-5); Platelet Count 247 K/mm3 (150-450); RBC Distribution Width CV 15.9 % (11.6-14.6); Red Blood Count 4.33 M/mm3 (4.2-5.4); White Blood Count 8.9 K/mm3 (4.4-11.0)
--- NOTE | 2025-01-26 03:35 | RAD_ITS ---
PROCEDURE: CHEST PA AND LATERAL 01/26/2025 REASON FOR EXAM: DYSPNEA TECHNIQUE: Frontal and lateral views of the chest. COMPARISON: 01/21/2025 FINDINGS: Appearance of mild vascular congestion without focal consolidation or pleural effusion identified. Cardiac silhouette is at the upper limits for size. Atherosclerotic change again seen at the aortic arch. RAD/Chest PA and Lateral IMPRESSION: Appearance of mild vascular congestion without focal consolidation or pleural e ffusion identified. Cardiac silhouette is at the upper limits for size. Reading Location: [id number]
[2025-01-26] MEDS: Ipratropium/Albuterol Sulfate 3 ML AMPUL.NEB INHALATION (03:54)
[2025-01-26 04:06] LABS: Anion Gap 10 (5-15); BUN 35 mg/dL (4-19); BUN/Creat Ratio 30.2 RATIO (10-20); Calcium,Total 10.2 mg/dL (7.6-11.0); Carbon Dioxide 27.1 mmol/L (21.0-32.0); Chloride 104 mmol/L (98-108); Creatinine, Serum 1.16 mg/dL (0.70-1.20); EST Glomerular Filtration Rate 47 (>60); Estimated Creatinine Clearance 38.24 ml/min (50-250); Glucose 211 mg/dL (70-99); Magnesium 2.7 mg/dL (1.5-2.2); Potassium 4.1 mmol/L (3.3-5.1); Pro- Brain NATRIURETIC PEPTIDE 3334 pg/mL (<=1800); Sodium Level 141 mmol/L (133-145)
--- NOTE | 2025-01-26 04:39 | EX.ED.DYSGE1 ---
HPI History of Present Illness Chief Complaint: Shortness of Breath Informant: patient Narrative Narrative: Patient is an 80-year-old female with past medical history of diabetes hypertension congestive heart failure and COPD. She was recently mated to the hospital secondary to CHF and pneumonia. She was discharged home and states that she does not require supplemental oxygen at baseline. She states this evening she was lying on her couch watching TV when she began to feel short of breath. She denies any chest pain associated with this. She states that she also struggles with anxiety and was unsure if she was having a anxiety attack. Based on her recent need for admission she felt was better to be reevaluated to ensure there was no worsening of her symptoms and therefore comes in for evaluation [facility] Medical History Fracture of hip, left, closed Coronary artery disease Paronychia of left index finger Vaginal cyst Anxiety Depression Irregular heart beat Multiple thyroid nodules Foraminal stenosis of lumbar region Lumbar spinal stenosis Diabetic retinopathy Colon polyp Thyroid goiter Hyperlipidemia Hypokalemia Microcytic anemia Neurogenic bladder Hypophosphatemia Hypercalcemia Former smoker UTI (urinary tract infection) Iron deficiency anemia Aortic stenosis Hyponatremia Urine retention Chronic renal failure, stage 3 (moderate) Cellulitis and abscess of finger, unspecified Retinopathy Peripheral artery disease Leg weakness, bilateral GERD (gastroesophageal reflux disease) Chronic idiopathic constipation COPD (chronic obstructive pulmonary disease) Polypharmacy Hypertension Carpal tunnel syndrome of right wrist Strain of right rotator cuff capsule Rhinitis Urinary retention with incomplete bladder emptying Vitamin D deficiency Asthma Pruritus Goiter, nontoxic, multinodular Anemia Diabetes Hx of venous thrombosis and embolism History of malignant neoplasm of breast Type 2 diabetes mellitus Home Medications ?Medication ?Instructions ?Recorded ?Last Taken ?Type aspirin 81 mg chewable tablet 81 mg PO DAILY [facility] 01/21/16 01/15/25 History magnesium oxide 400 mg (241.3 mg 400 mg PO BID SUPPLEMENT 08/16/18 01/15/25 History magnesium) tablet metoprolol tartrate 25 mg tablet 25 mg PO BID BLOOD PRESSURE 08/16/18 01/15/25 History pantoprazole 40 mg tablet,delayed 40 mg PO DAILY ACID REFLUX 12/02/19 01/15/25 History release empagliflozin 10 mg tablet 10 mg PO DAILY DIABETES 10/18/20 01/15/25 History (Jardiance) sitagliptin phosphate 50 mg tablet 50 mg PO DAILY DIABETES 10/18/20 01/15/25 History (Januvia) multivitamin 1 tab PO DAILY VITAMIN 12/06/21 01/15/25 History pravastatin 20 mg tablet 20 mg PO DAILY CHOLESTEROL 12/06/21 01/15/25 History ascorbic acid (vitamin C) 250 mg 250 mg PO DAILY SUPPLEMENT 08/13/23 01/15/25 History tablet (Vitamin C) gabapentin 100 mg capsule 100 mg PO QHS NERVE PAIN 08/13/23 01/14/25 History roflumilast 500 mcg tablet 500 mcg PO DAILY COPD 08/13/23 01/15/25 History insulin lispro 100 unit/mL 10 unit subcut TIDAC short acting 12/30/23 01/15/25 History subcutaneous pen (Humalog KwikPen insulin (U-100) Insulin) budesonide 160 mcg-glycopyr 9 2 inh inhalation BID 01/07/25 01/15/25 History mcg-formot 4.8 mcg/actuation HFA inhaler (Breztri Aerosphere) diltiazem HCl 180 mg 180 mg PO DAILY 01/07/25 01/15/25 History capsule,extended release 24 hr, controlled insulin glargine 100 unit/mL (3 20 unit subcut BID 01/07/25 01/15/25 History mL) subcutaneous pen (Lantus Solostar U-100 Insulin) ipratropium bromide 21 mcg (0.03 1 - 2 spray intranasal Q6H PRN 01/07/25 Unknown History %) nasal spray allergy symptoms lancets 28 gauge (TRUEplus Lancets) 01/07/25 Unknown History acetaminophen 500 mg tablet 1,000 mg PO Q6H PRN Pain Score 1-3 01/15/25 Unknown History azelastine 137 mcg (0.1 %) nasal 1 - 2 spray intranasal BID 01/15/25 01/15/25 History spray mecobalamin (vitamin B12) 1,000 1,000 mcg PO DAILY 01/15/25 01/15/25 History mcg chewable tablet (B12 Active) menthol 0.44 %-zinc oxide 20.6 % 1 applic topical 4X/DAY PRN skin 01/15/25 Unknown History topical ointment (CalaSoothe) irritation netarsudil 0.02 %-latanoprost 1 drp EACH EYE DAILY 01/15/25 01/15/25 History 0.005 % eye drops (Rocklatan) psyllium husk 0.4 gram capsule 0.4 g PO DAILY 01/15/25 01/15/25 History (Daily Fiber) tirzepatide 5 mg/0.5 mL 5 mg subcut QWEEK 01/15/25 Unknown History subcutaneous pen injector (Mounjaro) furosemide 40 mg tablet 40 mg PO BIDLX #60 tabs 01/24/25 Unknown Rx levofloxacin 750 mg tablet 750 mg PO QODAY@2200 #2 tabs 01/24/25 Unknown Rx potassium chloride 20 mEq 20 meq PO DAILY #30 tabs 01/24/25 Unknown Rx tablet,extended release (K-Tab) prednisone 20 mg tablet 40 mg (2 x 20 mg) PO BREAKFAST 5 01/24/25 Unknown Rx days #10 tabs sacubitril 24 mg-valsartan 26 mg 1 tab PO BID #60 tabs 01/24/25 Unknown Rx tablet (Entresto) Allergy/AdvReac Type Severity Reaction Status Date / Time adhesive tape (tape) Allergy NEEDS Verified 01/26/25 03:06 FOLLOW-UP amoxicillin Allergy YEAST Verified 01/26/25 03:06 INFECTION cephalexin monohydrate (From Allergy Rash Verified 01/26/25 03:06 Keflex) clopidogrel bisulfate (From Allergy Other Verified 01/26/25 03:06 Plavix) Family History Daughter Breast cancer Father Hypertension Sister Cancer Kidney disease Mother Pancreatic cancer Surgical History History of left hip hemiarthroplasty S/P fine needle aspiration (~10/2020) H/O dilation and curettage (~07/10/20) History of Achilles tendon repair Retinopathy History of lumpectomy of left breast Social History household members: spouse Smoking Status: Former smoker alcohol intake: never substance use type: does not use caffeine: Yes what type of physical activity do you participate in: none seatbelt use: always do you feel safe at home: Yes additional social history: [employer]- retired ROS ROS ED Constitutional Constitutional ED: Denies chills or fever(s) Eyes Eyes: Denies change in vision ENT ENT ED: Denies rhinorrhea or sore throat Cardiovascular Cardiovascular: Denies chest pain Respiratory/Chest Respiratory/Chest: Reports dyspnea; Denies cough Gastrointestinal Gastrointestinal: Denies abdominal pain, diarrhea, nausea or vomiting Genitourinary Genitourinary ED: Denies dysuria Musculoskeletal Musculoskeletal: Denies back pain Integumentary Denies rash Neurologic Neurologic: Denies headache(s) Psychiatric Psychiatric: Reports anxiety Hematologic/Lymphatic Hematologic/Lymphatic: Denies easy bleeding or easy bruising Allergic/Immunologic Allergic/Immunologic ED: Denies mouth swelling or tongue swelling EXAM Physical Exam Const Vital Signs: 01/26/25 03:02 01/26/25 03:06 01/26/25 03:14 Temperature 98.3 F Temperature Source Oral Pulse Rate 87 83 Respiratory Rate 15 22 H Respiratory Effort Normal Respiratory Pattern Blood Pressure 120/71 Blood Pressure Mean 87 Pulse Ox 98 97 Oxygen Delivery Method Room Air 01/26/25 03:15 01/26/25 03:30 01/26/25 03:41 Temperature Temperature Source Pulse Rate 83 85 Respiratory Rate 16 Respiratory Effort Respiratory Pattern Blood Pressure 111/49 L 111/64 Blood Pressure Mean 67 79 Pulse Ox 99 98 Oxygen Delivery Method 01/26/25 03:45 01/26/25 03:54 01/26/25 04:00 Temperature Temperature Source Pulse Rate 80 79 Respiratory Rate 20 H Respiratory Effort Respiratory Pattern Normal Blood Pressure 92/49 L 98/51 L Blood Pressure Mean 64 67 Pulse Ox 97 96 Oxygen Delivery Method 01/26/25 04:15 01/26/25 04:30 01/26/25 04:45 Temperature Temperature Source Pulse Rate 80 78 82 Respiratory Rate 27 H Respiratory Effort Respiratory Pattern Blood Pressure 100/43 L 90/38 L 85/41 L Blood Pressure Mean 60 53 55 Pulse Ox 95 96 Oxygen Delivery Method 01/26/25 05:03 Temperature Temperature Source Pulse Rate 87 Respiratory Rate 24 H Respiratory Effort Respiratory Pattern Blood Pressure 116/72 Blood Pressure Mean 87 Pulse Ox 98 Oxygen Delivery Method Positive well nourished and well developed General Appearance ED: well developed; Negative for pallor HEENT HEENT Narrative: No tongue or lip swelling no oral lesions no airway edema or compromise Eyes PERRL and EOMs intact bilaterally General Eye ED: Negative for scleral icterus Neck supple and no JVD Resp normal respiratory effort Resp Narrative: Breath sounds are slightly diminished throughout with faint crackles noted in the bilateral lower lobes However no nasal flaring retractions tachypnea or accessory muscle use Cardio regular rate and regular rhythm Rate: other Other Details: Radial and carotid pulses are equal and symmetric GI normal to inspection, nondistended, normoactive bowel sounds, non-tender, non-distended and no masses GI Narrative: No voluntary guarding or rigidity or pulsatile mass No fluid wave noted Auscultation: normoactive bowel sounds Palpation: soft Extremity normal to inspection Extremity Narrative: No asymmetric edema no pitting edema negative Homans' sign bilaterally Neuro oriented x3, CN's II-XII intact bilaterally and no sensory deficits noted Sensorium / Orientation: alert Motor Exam: strength 5/5 throughout Psych mental status grossly normal Skin no rashes or lesions noted General Skin Exam: Negative for jaundice or pallor MDM MDM MDM Narrative Medical decision making narrative: Patient arrived to the ER with stable vitals. Her pulse ox was 97 to 100% on room air. She did not have any increased work of breathing. Her previous inpatient chart was reviewed. There is concern patient could be having worsening of her recent diagnosed pneumonia or worsening congestive heart failure potentially acute blood loss anemia or a COPD exacerbation or cardiac dysrhythmia. Patient was kept on the case monitor and there was no dysrhythmia noted. Blood work showed a elevated proBNP however this is much improved from her recent hospitalization where it was approximately 21,000 and now it is approximately 3000. The patient's chest x-ray also showed improvement compared to recent inpatient evaluation. The patient was walked and her pulse ox remained in the mid 90s on room air. Therefore at this time the patient is not hypoxic at rest or with ambulation she does not have a cardiac dysrhythmia there is no acute blood loss anemia acute kidney injury or clinically significant electrolyte abnormality. Her congestive heart failure is improving and her pneumonia resolving. Therefore at this time I do not feel there is need for readmission and patient is otherwise safe for discharge History & Record Review Discussion w/independent historian: Patient Additional record(s) reviewed:: Prior inpatient record Lab Data Attestation: I reviewed the patient's lab results. Labs: Laboratory Results - last 24 hr 01/26/25 03:22 WBC 8.9 RBC 4.33 Hgb 11.8 L Hct 37.9 MCV 87.5 MCH 27.3 MCHC 31.1 L RDW Std Deviation 51.0 H RDW Coeff of Vijay 15.9 H Plt Count 247 MPV 10.8 Immature Gran % (Auto) 0.300 Neut % (Auto) 65.0 Lymph % (Auto) 25.1 Converse % (Auto) 6.7 Eos % (Auto) 2.8 Baso % (Auto) 0.1 Absolute Neuts (auto) 5.8 Absolute Lymphs (auto) 2.24 Nucleated RBC % 0 Sodium 141 Potassium 4.1 Chloride 104 Carbon Dioxide 27.1 Anion Gap 10 BUN 35 H Creatinine 1.16 Estim Creat Clear Calc 38.24 L Est GFR (MDRD) Non-Af 47 L BUN/Creatinine Ratio 30.2 H Glucose 211 H Calcium 10.2 Magnesium 2.7 H NT pro BNP II 3334 H Radiography Diagnostic Testing: Clinical Impression(s) from Imaging Studies Chest X-Ray 01/26/25 03:35 IMPRESSION: Appearance of mild vascular congestion without focal consolidation or pleural effusion identified. Cardiac silhouette is at the upper limits for size. Reading Location: [facility] Chest x-ray as interpreted by the emergency medicine physician reveals vascular congestion consistent with history of CHF without infiltrate or pleural effusion Discharge Plan Triage Chief Complaint: Shortness of Breath ED Provider: Jg Bryan Dx/Rx/DC Orders Clinical Impression: Dyspnea, CHF (congestive heart failure), Hypertension, Hyperlipidemia, COPD (chronic obstructive pulmonary disease), Diabetes mellitus type 2, insulin dependent Instructions: ED Heart Failure, Congestive (CHF), ED Dyspnea Prescriptions: No Action Januvia 50 mg tablet 50 mg PO DAILY Jardiance 10 mg tablet 10 mg PO DAILY multivitamin Tablet 1 tab PO DAILY pravastatin 20 mg tablet 20 mg PO DAILY aspirin 81 MG tablet,chewable 81 mg PO DAILY metoprolol tartrate 25 MG tablet 25 mg PO BID magnesium oxide 400 MG tablet 400 mg PO BID pantoprazole 40 MG tablet 40 mg PO DAILY gabapentin 100 mg capsule 100 mg PO QHS roflumilast 500 mcg tablet 500 mcg PO DAILY ascorbic acid (vitamin C) [Vitamin C] 250 mg tablet 250 mg PO DAILY insulin lispro [Humalog KwikPen Insulin] 100 unit/mL Insulin Pen 10 unit subcut TIDAC Rx Instructions: Hold if glucose less than 120 mg/dl Mounjaro 5 mg/0.5 mL pen injector 5 mg subcut QWEEK Patient Comments: PT STATES SHE SOMETIMES TAKES IT ON THURSDAY, SOMETIMES ON FRIDAYS. menthol-zinc oxide [CalaSoothe] 0.44-20.6 % ointment 1 applic topical 4X/DAY PRN (Reason: skin irritation) psyllium husk [Daily Fiber] 0.4 gram capsule 0.4 g PO DAILY mecobalamin (vitamin B12) [B12 Active] 1,000 mcg tablet,chewable 1,000 mcg PO DAILY azelastine 137 mcg (0.1 %) spray,non-aerosol 1 - 2 spray INTRANASAL BID acetaminophen 500 mg Tablet 1,000 mg PO Q6H PRN (Reason: Pain Score 1-3) Rocklatan 0.02-0.005 % Drops 1 drp EACH EYE DAILY furosemide 40 mg Tablet 40 mg PO BIDLX Qty: 60 2RF prednisone 20 mg Tablet 40 mg PO BREAKFAST 5 Days Qty: 10 0RF levofloxacin 750 mg Tablet 750 mg PO QODAY@2200 Qty: 2 0RF Entresto 24-26 mg Tablet 1 tab PO BID Qty: 60 2RF potassium chloride [K-Tab] 20 mEq tablet extended release 20 meq PO DAILY Qty: 30 2RF diltiazem HCl 180 mg capsule,ext.rel 24h degradable 180 mg PO DAILY ipratropium bromide 21 mcg (0.03 %) spray,non-aerosol 1 - 2 spray INTRANASAL Q6H PRN (Reason: allergy symptoms) insulin glargine [Lantus Solostar U-100 Insulin] 100 unit/mL (3 mL) insulin pen 20 unit subcut BID (DME) lancets [TRUEplus Lancets] 28 gauge misc MISCELLANEOUS Breztri Aerosphere 160-9-4.8 mcg/actuation HFA aerosol inhaler 2 inh inhalation BID Primary Care Provider: Ramone Smiley Referrals: Ramone Smiley MD [Primary Care Provider] - Activity Restrictions/Additional Instructions: Please try to sleep at more of a inclined position as this will help prevent increasing shortness of breath from your congestive heart failure. Your labs and images show that everything is improving from your recent hospitalization and therefore continue all of your home medications as directed. Return to the ER should you have any further concerns Print Language: Trinidadian Disposition Disposition: Home, Self Care
== END 2025-01-26 05:23 | disposition home or self-care (01) ==
PROVIDERS: Emergency Provider Emergency Medicine; PCP Family Medicine; Visit Provider Emergency Medicine
DX: R06.00 Dyspnea, unspecified (principal); I50.9 Heart failure, unspecified; I13.0 Hypertensive heart and chronic kidney disease with heart failure and stage 1 through stage 4 chronic kidney disease, or unspecified chronic kidney disease; J44.9 Chronic obstructive pulmonary disease, unspecified; E11.22 Type 2 diabetes mellitus with diabetic chronic kidney disease; N18.30 Chronic kidney disease, stage 3 unspecified; J18.9 Pneumonia, unspecified organism; Z87.891 Personal history of nicotine dependence; E78.5 Hyperlipidemia, unspecified; I25.10 Atherosclerotic heart disease of native coronary artery without angina pectoris
CPT/HCPCS: 71046; 80048; 83735; 83880; 85025; 94640; 99283; A4216

== ENCOUNTER 2025-02-04 06:20 | Inpatient (IN) | payer MEDICARE, SELFPAY ==
[2025-02-04] VITALS (15 sets, daily range): BP systolic 104–148; BP diastolic 39–70; PULSE 87–97; RESP 18–30; TEMP 36.3–37.1; O2SAT 81–99; BMI 29.9; BMI 27.8
--- NOTE | 2025-02-04 06:37 | EKG12_ITS ---
Test Reason : SOB Blood Pressure : */* mmHG Vent. Rate : 90 BPM Atrial Rate : 90 BPM P-R Int : 134 ms QRS Dur : 88 ms QT Int : 390 ms P-R-T Axes : 66 55 -23 degrees QTcB Int : 477 ms Normal sinus rhythm Nonspecific ST and T wave abnormality Abnormal ECG Confirmed by DEBORAH LEARY, KHRIS ([id number]), web content editor ATTILA ESPINO ([id number]) on 02/06/2025 6:12:02 AM Referred By: Confirmed By: KHRIS CABRERA MD
--- NOTE | 2025-02-04 06:40 | ED.VIS.DYS ---
HPI History of Present Illness Chief Complaint: Shortness of Breath Informant: patient and EMS Narrative Narrative: 80-year-old female states that she has been short of breath this morning and since she fell off the couch that she was sleeping on. Feels like her COPD. She has a history of congestive heart failure and COPD on no home oxygen, she was very short of breath, she had an albuterol inhaler that she tried and only had a little bit of relief from so she called 911 and they gave her duo nebulizer which really helped a lot. Prior to that they detected her on room air at 81%. She denies any chest discomfort, cough, or changes in leg edema this morning. She denies injuring her chest or ribs or anything else when she fell off of the couch, and has no pain. [facility] Medical History Elevated troponin Coronary artery disease Aortic stenosis Hypertension Obesity (BMI 30.0-34.9) Lactic acidosis Fracture of hip, left, closed Paronychia of left index finger Vaginal cyst Anxiety Depression Irregular heart beat Multiple thyroid nodules Foraminal stenosis of lumbar region Lumbar spinal stenosis Diabetic retinopathy Colon polyp Thyroid goiter Hyperlipidemia Hypokalemia Microcytic anemia Neurogenic bladder Hypophosphatemia Hypercalcemia Former smoker UTI (urinary tract infection) Iron deficiency anemia Hyponatremia Urine retention Chronic renal failure, stage 3 (moderate) Cellulitis and abscess of finger, unspecified Retinopathy Peripheral artery disease Leg weakness, bilateral GERD (gastroesophageal reflux disease) Chronic idiopathic constipation COPD (chronic obstructive pulmonary disease) Polypharmacy Hypertension Carpal tunnel syndrome of right wrist Strain of right rotator cuff capsule Rhinitis Urinary retention with incomplete bladder emptying Vitamin D deficiency Asthma Pruritus Goiter, nontoxic, multinodular Anemia Diabetes Hx of venous thrombosis and embolism History of malignant neoplasm of breast Type 2 diabetes mellitus Home Medications ?Medication ?Instructions ?Recorded ?Last Taken ?Type aspirin 81 mg chewable tablet 81 mg PO DAILY HERT HEALTH 01/21/16 01/15/25 History magnesium oxide 400 mg (241.3 mg 400 mg PO BID SUPPLEMENT 08/16/18 01/15/25 History magnesium) tablet metoprolol tartrate 25 mg tablet 25 mg PO BID BLOOD PRESSURE 08/16/18 01/15/25 History pantoprazole 40 mg tablet,delayed 40 mg PO DAILY ACID REFLUX 12/02/19 01/15/25 History release empagliflozin 10 mg tablet 10 mg PO DAILY DIABETES 10/18/20 01/15/25 History (Jardiance) sitagliptin phosphate 50 mg tablet 50 mg PO DAILY DIABETES 10/18/20 01/15/25 History (Januvia) multivitamin 1 tab PO DAILY VITAMIN 12/06/21 01/15/25 History pravastatin 20 mg tablet 20 mg PO DAILY CHOLESTEROL 12/06/21 01/15/25 History ascorbic acid (vitamin C) 250 mg 250 mg PO DAILY SUPPLEMENT 08/13/23 01/15/25 History tablet (Vitamin C) gabapentin 100 mg capsule 100 mg PO QHS NERVE PAIN 08/13/23 01/14/25 History roflumilast 500 mcg tablet 500 mcg PO DAILY COPD 08/13/23 01/15/25 History insulin lispro 100 unit/mL 10 unit subcut TIDAC short acting 12/30/23 01/15/25 History subcutaneous pen (Humalog KwikPen insulin (U-100) Insulin) budesonide 160 mcg-glycopyr 9 2 inh inhalation BID 01/07/25 01/15/25 History mcg-formot 4.8 mcg/actuation HFA inhaler (Breztri Aerosphere) diltiazem HCl 180 mg 180 mg PO DAILY 01/07/25 01/15/25 History capsule,extended release 24 hr, controlled insulin glargine 100 unit/mL (3 20 unit subcut BID 01/07/25 01/15/25 History mL) subcutaneous pen (Lantus Solostar U-100 Insulin) ipratropium bromide 21 mcg (0.03 1 - 2 spray intranasal Q6H PRN 01/07/25 Unknown History %) nasal spray allergy symptoms lancets 28 gauge (TRUEplus Lancets) 01/07/25 Unknown History acetaminophen 500 mg tablet 1,000 mg PO Q6H PRN Pain Score 1-3 01/15/25 Unknown History azelastine 137 mcg (0.1 %) nasal 1 - 2 spray intranasal BID 01/15/25 01/15/25 History spray mecobalamin (vitamin B12) 1,000 1,000 mcg PO DAILY 01/15/25 01/15/25 History mcg chewable tablet (B12 Active) menthol 0.44 %-zinc oxide 20.6 % 1 applic topical 4X/DAY PRN skin 01/15/25 Unknown History topical ointment (CalaSoothe) irritation netarsudil 0.02 %-latanoprost 1 drp EACH EYE DAILY 01/15/25 01/15/25 History 0.005 % eye drops (Rocklatan) psyllium husk 0.4 gram capsule 0.4 g PO DAILY 01/15/25 01/15/25 History (Daily Fiber) tirzepatide 5 mg/0.5 mL 5 mg subcut QWEEK 01/15/25 Unknown History subcutaneous pen injector (Mounjaro) furosemide 40 mg tablet 40 mg PO BIDLX #60 tabs 01/24/25 Unknown Rx potassium chloride 20 mEq 20 meq PO DAILY #30 tabs 01/24/25 Unknown Rx tablet,extended release (K-Tab) prednisone 20 mg tablet 40 mg (2 x 20 mg) PO BREAKFAST 5 01/24/25 Unknown Rx days #10 tabs sacubitril 24 mg-valsartan 26 mg 1 tab PO BID #60 tabs 01/24/25 Unknown Rx tablet (Entresto) Allergy/AdvReac Type Severity Reaction Status Date / Time adhesive tape (tape) Allergy NEEDS Verified 02/04/25 06:21 FOLLOW-UP amoxicillin Allergy YEAST Verified 02/04/25 06:21 INFECTION cephalexin monohydrate (From Allergy Rash Verified 02/04/25 06:21 Keflex) clopidogrel bisulfate (From Allergy Other Verified 02/04/25 06:21 Plavix) Family History Daughter Breast cancer Father Hypertension Sister Cancer Kidney disease Mother Pancreatic cancer Surgical History History of left hip hemiarthroplasty S/P fine needle aspiration (~10/2020) H/O dilation and curettage (~07/10/20) History of Achilles tendon repair Retinopathy History of lumpectomy of left breast Social History household members: spouse Smoking Status: Former smoker alcohol intake: never substance use type: does not use caffeine: Yes what type of physical activity do you participate in: none seatbelt use: always do you feel safe at home: Yes additional social history: [employer]- retired ROS ROS ED Constitutional Constitutional ED: Denies chills or fever(s) Eyes Eyes: Denies change in vision or diplopia ENT ENT ED: Denies rhinorrhea or sore throat Cardiovascular Cardiovascular: Denies chest pain, orthopnea, palpitations or paroxysmal nocturnal dyspnea Respiratory/Chest Respiratory/Chest: Reports dyspnea; Denies cough, orthopnea or paroxysmal nocturnal dyspnea Gastrointestinal Gastrointestinal: Denies abdominal pain, diarrhea, nausea or vomiting Genitourinary Genitourinary ED: Denies dysuria or hematuria Musculoskeletal Musculoskeletal: Denies back pain or neck pain Integumentary Denies abscess or rash Neurologic Neurologic: Denies headache(s), paresthesias or weakness Psychiatric Psychiatric: Denies suicidal thoughts EXAM Physical Exam Const Vital Signs: 02/04/25 06:20 02/04/25 06:20 02/04/25 06:57 Temperature 98.8 F Temperature Source Oral Pulse Rate 97 Respiratory Rate 22 H Respiratory Effort Respiratory Pattern Blood Pressure 148/70 H Blood Pressure Mean 96 Pulse Ox 81 98 94 Oxygen Delivery Method Room Air Nasal Cannula Nasal Cannula Oxygen Flow Rate (L/min) 4 4 02/04/25 06:57 02/04/25 07:06 Temperature Temperature Source Pulse Rate 94 Respiratory Rate 28 H Respiratory Effort Short of Breath Respiratory Pattern Tachypnea Blood Pressure Blood Pressure Mean Pulse Ox Oxygen Delivery Method Oxygen Flow Rate (L/min) Positive well nourished and well developed Constitutional Narrative: Conversive in full sentences General Appearance ED: well developed and NAD HEENT Reports moist mucous membranes normocephalic and atraumatic Eyes PERRL and EOMs intact bilaterally Neck full ROM, supple and no JVD Resp normal respiratory effort Resp Narrative: Slight end expiratory wheezes otherwise diminished throughout but symmetric Cardio regular rate and regular rhythm Cardio Narrative: Faint heart sounds GI non-tender and non-distended Auscultation: normoactive bowel sounds Palpation: soft Back/Spine no CVA tenderness General Back: other FROM Extremity normal to inspection General Extremety ED: Yes edema; Negative for pulses abnormal or tenderness General Extremity: edema bilateral lower extremity Details: trace; Negative for pulses abnormal Neuro oriented x3, CN's II-XII intact bilaterally and no sensory deficits noted Sensorium / Orientation: awake and alert Motor Exam: strength 5/5 throughout Psych mental status grossly normal Skin no rashes or lesions noted and no wounds MDM MDM MDM Narrative Medical decision making narrative: Patient seems to be in no distress and breathing much better now after the DuoNeb that EMS gave her. Because she was hypoxic and was just here inpatient 1 week ago for a mixture of what seems to be COPD and CHF, I obtained more of a workup rather than just a chest x-ray. Her EKG shows some nonspecific lateral and inferior ST-T wave abnormalities but these are unchanged and similar compared with her prior. She was seen just prior cystic change, she currently is over an x-ray getting her chest x-ray. She had a nebulizer treatment. Upon return, nursing is to take her off of her oxygen, see if her hypoxemia is resolved. If she does not have a continuing oxygen requirement, has no pneumothorax or pneumonia in the rest of her labs other than the CBC which I have reviewed look okay, I would support discharge home and outpatient follow-up; reevaluation of the patient and evaluation of these other test has been checked out to the a.m. ED physician. History & Record Review Additional record(s) reviewed:: Prior ED visit Lab Data Attestation: I reviewed the patient's lab results. Labs: Laboratory Results - last 24 hr 02/04/25 06:50 WBC 11.2 H RBC 3.84 L Hgb 10.7 L Hct 34.1 L MCV 88.8 MCH 27.9 MCHC 31.4 L RDW Std Deviation 51.4 H RDW Coeff of Vijay 15.9 H Plt Count 185 MPV 11.3 Immature Gran % (Auto) 0.400 Neut % (Auto) 75.4 H Lymph % (Auto) 15.7 L [place] % (Auto) 6.6 Eos % (Auto) 1.7 Baso % (Auto) 0.2 Absolute Neuts (auto) 8.4 H Absolute Lymphs (auto) 1.75 Nucleated RBC % 0 Rhythm Strip Rhythm Strip: Sinus Rhythm Rate: 90 Ectopy: None EKG Initial EKG: Attestation: I personally reviewed and interpreted this EKG as follows: Interpretation: Sinus Rhythm, No Acute Injury Pattern and Non-Specific ST Changes (Lateral precordial and inferior leads) Prior EKG tracings: available for review Prior: Unchanged Discharge Plan Triage Chief Complaint: Shortness of Breath ED Provider: Aj Holley Dx/Rx/DC Orders Prescriptions: No Action Januvia 50 mg tablet 50 mg PO DAILY Jardiance 10 mg tablet 10 mg PO DAILY multivitamin Tablet 1 tab PO DAILY pravastatin 20 mg tablet 20 mg PO DAILY aspirin 81 MG tablet,chewable 81 mg PO DAILY metoprolol tartrate 25 MG tablet 25 mg PO BID magnesium oxide 400 MG tablet 400 mg PO BID pantoprazole 40 MG tablet 40 mg PO DAILY gabapentin 100 mg capsule 100 mg PO QHS roflumilast 500 mcg tablet 500 mcg PO DAILY ascorbic acid (vitamin C) [Vitamin C] 250 mg tablet 250 mg PO DAILY insulin lispro [Humalog KwikPen Insulin] 100 unit/mL Insulin Pen 10 unit subcut TIDAC Rx Instructions: Hold if glucose less than 120 mg/dl Mounjaro 5 mg/0.5 mL pen injector 5 mg subcut QWEEK Patient Comments: PT STATES SHE SOMETIMES TAKES IT ON THURSDAY, SOMETIMES ON FRIDAYS. menthol-zinc oxide [CalaSoothe] 0.44-20.6 % ointment 1 applic topical 4X/DAY PRN (Reason: skin irritation) psyllium husk [Daily Fiber] 0.4 gram capsule 0.4 g PO DAILY mecobalamin (vitamin B12) [B12 Active] 1,000 mcg tablet,chewable 1,000 mcg PO DAILY azelastine 137 mcg (0.1 %) spray,non-aerosol 1 - 2 spray INTRANASAL BID acetaminophen 500 mg Tablet 1,000 mg PO Q6H PRN (Reason: Pain Score 1-3) Rocklatan 0.02-0.005 % Drops 1 drp EACH EYE DAILY furosemide 40 mg Tablet 40 mg PO BIDLX Qty: 60 2RF prednisone 20 mg Tablet 40 mg PO BREAKFAST 5 Days Qty: 10 0RF Entresto 24-26 mg Tablet 1 tab PO BID Qty: 60 2RF potassium chloride [K-Tab] 20 mEq tablet extended release 20 meq PO DAILY Qty: 30 2RF diltiazem HCl 180 mg capsule,ext.rel 24h degradable 180 mg PO DAILY ipratropium bromide 21 mcg (0.03 %) spray,non-aerosol 1 - 2 spray INTRANASAL Q6H PRN (Reason: allergy symptoms) insulin glargine [Lantus Solostar U-100 Insulin] 100 unit/mL (3 mL) insulin pen 20 unit subcut BID (DME) lancets [TRUEplus Lancets] 28 gauge misc MISCELLANEOUS Breztri Aerosphere 160-9-4.8 mcg/actuation HFA aerosol inhaler 2 inh inhalation BID Primary Care Provider: Ramone Smiley Referrals: Ramone Smiley MD [Primary Care Provider] - Print Language: Greenlandic
[2025-02-04] MEDS: Albuterol 2.5 MG/3 ML VIAL.NEB. INHALATION (06:57)
[2025-02-04 06:58] LABS: Absolute Lymphocyte Count 1.75 X10^3/uL (0.83-4.51); Absolute Neutrophil Count 8.4 X10^3/uL (2.0-7.7); Basophil# 0.02 X10^3/uL; Basophil% 0.2 % (0-1); Eosinophil# 0.19 X10^3/uL; Eosinophils% 1.7 % (0-5); Hematocrit 34.1 % (37-47); Hemoglobin 10.7 g/dL (12.0-15.0); Lymphocyte # 1.75 X10^3/ul (0.83-4.51); Lymphocyte % 15.7 % (19-41); Mean Corp Hgb Conc 31.4 g/dL (32-36); Mean Corpuscular Hgb 27.9 pg (27.0-32.0); Mean Corpuscular Volume 88.8 fL (81-99); Mean Platelet Vol. 11.3 fl (6.2-12.0); Monocyte# 0.74 X10^3/uL; Monocyte% 6.6 % (0-10); NRBC Flagged by Analyzer 0 % (0-5); Neutrophil # 8.43 X10^3/uL (2.7-7.7); Neutrophil % 75.4 % (47-70); Platelet Count 185 K/mm3 (150-450); RBC Distribution Width CV 15.9 % (11.6-14.6); RBC Distribution Width SD 51.4 fl (35.1-43.9); Red Blood Count 3.84 M/mm3 (4.2-5.4); White Blood Count 11.2 K/mm3 (4.4-11.0)
--- NOTE | 2025-02-04 07:10 | RAD_ITS ---
PROCEDURE: CHEST PA AND LATERAL 02/04/2025 REASON FOR EXAM: SOB TECHNIQUE: Frontal and lateral views of the chest. COMPARISON: Chest radiograph 01/26/2025 FINDINGS: Hardware: None Heart: The heart size is normal. Mediastinum: The mediastinal contour is unremarkable. Lungs: Emphysema. Mid-lower lobe interstitial thickening, likely secondary to atelectasis. No focal consolidation.. No pneumothorax. No pleural effusion. Bones: Degenerative changes are identified within the thoracic spine. RAD/Chest PA and Lateral IMPRESSION: See above Reading Location: [facility]
[2025-02-04 07:27] LABS: Anion Gap 16 (5-15); BUN 15 mg/dL (4-19); BUN/Creat Ratio 13.2 RATIO (10-20); Calcium,Total 8.9 mg/dL (7.6-11.0); Carbon Dioxide 25.9 mmol/L (21.0-32.0); Chloride 95 mmol/L (98-108); Creatinine, Serum 1.14 mg/dL (0.70-1.20); EST Glomerular Filtration Rate 48 (>60); Estimated Creatinine Clearance 37.95 ml/min (50-250); Glucose 132 mg/dL (70-99); Potassium 3.9 mmol/L (3.3-5.1); Sodium Level 137 mmol/L (133-145)
--- OUTSIDE RECORDS SUMMARY | 2025-02-04 07:28 | XMS RPT_ITS | CCD ---
Author Organization [facility] Care Team Providers Care It Data Architect Name Role Phone Zuleika Heaton Unavailable Unavailable LEE ALAMO Unavailable Unavailable PROVIDER, UNKNOWN Unavailable Unavailable Zuleika Heaton Unavailable Unavailable Dr. Ramone Smiley Primary Care Provider Dr. Ramone Smiley Referring Provider Dr. Michael Carmen Attending Provider [phone] Juan Carlos JEAN, MIRANDA-Marianna Bullock Attending Provider Dr. Angela Moncada Attending Provider Baljit LEARY, Ramone Noe Primary Care Provider [phone] Dr. Ramone Smiley Primary Care Provider [phone] Ramone Smiley Referring Provider [phone] DAVY Blackmon Attending Provider Ramone Smiley MD Primary Care Provider Dr. Ramone Smiley Primary Care Provider [phone] Dr. Ramone Smiley Referring Provider DAVY Peck Attending Provider Dr. Robert Allison Emergency Provider Dr. Heydi Amaya Admit Provider Dr. Heydi Amaya Other Provider Dr. Nestor Bartlett Attending Provider Dr. Nestor Bartlett Other Provider Dr. Ramone Veras Other Provider Dr. Sandeep Denson Attending Provider Unavailable Dr. Sandeep Denson Other Provider Unavailable Dr. Ramone Smiley Primary Care Provider [phone] Queta Cortez Emergency Provider Dhruv, Dr. Baez Admit Provider Dr. Netsor Bartlett Other Provider Dr. Gabriel Byrd Other Provider Ray, Dr. Correa Attending Provider Ray, Dr. Correa Other Provider Baljit LEARY, Dr. Pack Primary Care Provider Baljit LEARY, Dr. Pack Attending Provider Baljit LEARY, Dr. Pack Referring Provider Carie RAYMUNDO, Dr. Long Emergency Provider Carie RAYMUNDO, Dr. Long Attending Provider Dr. Jeevan Yoder DO Emergency Provider Baljit LEARY, Dr. Pack Primary Care Provider Baljit LEARY, Dr. Pack Attending Provider [phone] Baljit LEARY, Dr. Pack Referring Provider Carie RAYMUNDO, Dr. Long Attending Provider Dr. Ethan Darnell DO Emergency Provider Dr. Jeevan Yoder DO Attending Provider Dr. Jeevan Yoder DO Emergency Provider de Frank RAYMUNDO, Dr. Hopkins Admit Provider Unavail able Carlton DO, Dr. Hopkins Other Provider Unavail able Mary Kate LEARY, Dr. Melba Gayle Attending Provider Dr. Lucio Borden DO Other Provider Charles LEARY, Dr. Hewitt Other Provider [phone] Charles LEARY, Dr. Hewitt Attending Provider Mary Kate LEARY, Dr. Melba Gayle Other Provider [phone] Herrera LEARY, Dr. Hudson Attending Provider [phone] Baljit LEARY, Dr. Pack Primary Care Provider Baljit LEARY, Dr. Pack Attending Provider [phone] Baljit LEARY, Dr. Pack Referring Provider Dr. Jg Bryan DO Emergency Provider Smiley, Ramone Referring Unavailable Smiley, Ramone Primary Care Unavailable Nash JEAN, Whitney Attending Unavailable Sandeep Carlton Admitting Unavailable Smiley, Ramone Primary Care Unavailable de Sandeep Marie Consulting Unavailable Sandeep Carlton Attending Unavailable Melba Hartmann Attending Unavailable Tereletsky, Lucio Consulting Unavailable Charles, Mihaiadeyoni Consulting Unavailabl e Mikhailam, Melba Nalini Consulting Unavailable Smiley, Ramone Referring Unavailable Smiley, Ramone Primary Care Unavailable Smiley, Ramone Attending Unavailable Smiley, Ramone Primary Care Unavailable Gabriel Byrd Attending Unavailable Gabriel Byrd Referring Unavailable Jason Kurtz Attending Unavailable Jason Kurtz Referring Unavailable Smiley, Ramone Primary Care Unavailable Smiley, Ramone Referring Unavailable Smiley, Ramone Primary Care Unavailable Smiley, Ramone Attending Unavailable Becca Silverman Attending Unavailable Asha Anguiano Attending Unavailable Asha Anguiano Referring Unavailable Smiley, Ramone Primary Care Unavailable Smiley, Ramone Referring Unavailable Smiley, Ramone Attending Unavailable Smiley, Ramone Primary Care Unavailable Smiley, Ramone Referring Unavailable Smiley, Ramone Attending Unavailable Smiley, Ramone Primary Care Unavailable Kwaku Marcial Attending Unavailable Smiley, Ramone Primary Care Unavailable Sandeep Carlton Admitting Unavailable Melba Hartmann Attending Unavailable Smiley, Ramone Primary Care Unavailable Sandeep Carlton Consulting Unavailable Michi Lucio Consulting Unavailable Nagaannikathi, Nagapradee Consulting Unavailabl e Esterodicakhil Billy Attending Unavailable Reodicakhil Billy Referring Unavailable Smiley, Ramone Primary Care Unavailable Ethan Darnell Attending Unavailable Smiley, Ramone Primary Care Unavailable Jeevan Yoder Attending Unavailable Smiley, Ramone Primary Care Unavailable Smiley, Ramone Primary Care Unavailable Jg Brayn Attending Unavailable Smiley, Ramone Referring Unavailable Smiley, Ramone Primary Care Unavailable Smiley, Ramone Attending Unavailable Smiley, Ramone Referring Unavailable Smiley, Ramone Attending Unavailable Smiley, Ramone Primary Care Unavailable Nagajothi, Nagapradee Attending Ramone Edge Primary Care Unavailable Allergies Allergy Classification Reported Allergen(s) Allergy Type Date of Onset Reaction(s) Facility (20 sources) Adhesive Tape; Translations: [ADHESIVE TAPE] allergy to substance 5 NEEDS FOLLOW-UP [facility] Work Phone: [phone] Comment on above: CLOTH TAPE (20 sources) amoxicillin; Translations: [amoxicillin] drug allergy 5 yeast infection [facility] Work Phone: (2 sources) cephalexin drug allergy 5 [facility] Work Phone: (2 sources) clopidogrel drug allergy 5 [facility] Work Phone: (20 sources) Cephalexin; Translations: [cephalexin monohydrate] Drug Allergy 2 [facility] (20 sources) clopidogrel; Translations: [clopidogrel bisulfate] Drug Allergy 1 Hives [facility] Work Phone: (2 sources) cloth tap Allergy to substance 2 Other [facility] Work Phone: (5 sources) Cephalexin Drug Allergy 5 [place] Work Phone: (5 sources) tape [Other] Propensity to adverse reactions 5 [place] Medications Current Medications Medication Drug Class(es) Dates Sig (Normalized) Sig (Original) acetaminophen 325 mg / HYDROcodone bitartrate 5 mg oral tablet (20 sources) Opioid Agonist Start: 07-14-2022 take 1 tablet by mouth every six hours Hydrocodone-Aceta minophen Active 1 TABLET PO EVERY 6 HOURS 10 July 14, 2022 Start: 11-22-2018 End: 11-29-2018 Start: 11-22-2018 End: 11-29-2018 Hydrocodone-Acetaminophen 1 TABLET tablet Discontinued 1 {tbl} PO EVERY 4 HOURS NEEDED as needed for Pain 10 November 22, 2018 12:00am November 28, 2018 12:00am November 29, 2018 12:08am Start: 11-22-2018 End: 11-29-2018 take 1 tablet by mouth every four hours as needed Hydrocodone-Acetaminophen Discontinued 1 TABLET PO EVERY 4 HOURS NEEDED 10 November 22, 2018 12:00am November 29, 2018 12:08am Start: 10-19-2018 End: 10-26-2018 Start: 10-19-2018 End: 10-26-2018 Hydrocodone-Acetaminophen 1 TABLET tablet Discontinued 1 {tbl} PO EVERY 4 HOURS NEEDED as needed for Pain 19 03October 19, 2018 1:00am October 25, 2018 1:00am October 26, 2018 1:09am Start: 10-19-2018 End: 10-26-2018 take 1 tablet by mouth every four hours as needed Hydrocodone-Acetaminophen Discontinued 1 TABLET PO EVERY 4 HOURS NEEDED 19 03October 19, 2018 1:00am October 26, 2018 1:09am Albuterol Sulfate (20 sources) beta2-Adrenergic Agonist Start: 08-16-2018 take 1 puff(s) by inhalation every four hours as needed Albuterol Sulfate Active 2 PUFF INHALATION EVERY 4 HOURS NEEDED August 16, 2018 5:56pm Start: 08-16-2018 End: 01-07-2025 Albuterol Sulfate 1 INHALER inhaler Discontinued 2 NMA INHALATION Q4H as needed for Sob &/Or Wheezing August 16, 2018 1:00am January 07, 2025 4:19pm Start: 08-16-2018 take 1 puff(s) by in halation every four hours Albuterol Sulfate Active 2 PUFF INHALATION Q4H August 16, 2018 1:00am Start: 08-16-2018 take 1 puff(s) by in halation every four hours Albuterol Sulfate Active 2 PUFF INHALATION Q4H August 16, 2018 12:00am Start: 08-16-2018 take 1 puff(s) by in halation every four hours as needed Albuterol Sulfate Active 2 PUFF INHALATION EVERY 4 HOURS NEEDED August 16, 2018 12:00am Start: 08-16-2018 take 1 puff(s) by in halation every four hours as needed Albuterol Sulfate Active 2 PUFF INHALATION EVERY 4 HOURS NEEDED August 16, 2018 1:00am Start: 08-29-2015 VENTOLIN HFA 1 08 (90 Base) MCG/ACT AERS As needed - 90mcg/inh ALBUTEROL SULFATE [id number] Se Good MD Start: 08-29-2015 VENTOLIN HFA 1 08 (90 Base) MCG/ACT AERS As needed - 90mcg/inh ALBUTEROL SULFATE [id number] Se Good MD Start: 12-25-2014 End: 01-12-2018 take 1 puff(s) by inhalation every four hours as needed Albuterol Sulfate Discontinued 1 - 2 PUFF INHALATION EVERY 4 HOURS NEEDED December 25, 2014 10:20am January 12, 2018 10:09am Start: 12-25-2014 End: 01-12-2018 Start: 12-25-2014 End: 01-12-2018 Albuterol Sulfate 1 INHALER inhaler Discontinued 1 - 2 NMA INHALATION EVERY 4 HOURS NEEDED as needed for Shortness Of Breath December 25, 2014 12:00am January 12, 2018 10:09am Start: 12-25-2014 End: 01-12-2018 take 1 puff(s) by inhalation every four hours as needed Albuterol Sulfate Discontinued 1 - 2 PUFF INHALATION EVERY 4 HOURS NEEDED December 25, 2014 12:00am January 12, 2018 10:09am Start: 12-11-2011 take 3 mL by inhalat [...] MINUTES. FOR WHEEZING AND SHORTNESS OF BREATH. ascorbic acid 250 mg oral tablet (20 sources) Vitamin C Start: 08-13-2023 Start: 07-30-2023 End: 08-13-2023 take 1 tablet by mouth once daily Ascorbic Acid (Vitamin C) (C-1000) 1,000 mg tablet Discontinued 1 g PO DAILY July 30, 2023 1:00am August 13, 2023 3:12pm Start: 07-30-2023 End: 08-13-2023 take 1 tablet by mouth once daily Ascorbic Acid (Vitamin C) (C-1000) 1,000 mg tablet Discontinued 1 GM PO DAILY July 30, 2023 1:00am August 13, 2023 3:12pm Start: 07-30-2023 End: 08-13-2023 take 1 tablet by mouth once daily Ascorbic Acid (Vitamin C) (C-1000) 1,000 mg tablet Discontinued 1 GM PO DAILY July 30, 2023 12:00am August 13, 2023 2:12pm take 1 tablet by martin every week ascorbic acid, vitamin C, (VITAMIN C) 250 mg tablet Take 250 mg by mouth one time a week. 0 Active take 1 tablet by martin once daily ascorbic acid, vitamin C, (VITAMIN C) 250 mg tablet Take 250 mg by mouth once daily. 0 Active Comment on above: Take 250 mg by mouth once daily. Take 250 mg by mouth one time a week. aspirin 81 mg chewable table t (20 sources) Nonsteroidal Anti-inflammatory Drug Start: 01-21-2016 Start: 08-23-2015 take 1 tablet by martin once daily ASPIRIN 81 MG TABS One tablet by mouth daily ASPIRIN [id number] Kadie Álvarez RN Start: 08-23-2015 take 1 tablet by martin once daily ASPIRIN 81 MG TABS One tablet by mouth daily ASPIRIN [id number] Kadie Álvarez RN take 1 tablet by [facility] once daily aspirin, enteric coated (ASPIRIN, ENTERIC COATED) 81 mg EC tablet Take 81 mg by mouth once daily. 0 Active Comment on above: Take 81 mg by mouth once daily. azelastine hydrochloride 0.1 37 mg/actuat metered dose nasal spray (20 sources) Histamine-1 Receptor Antagonist Start: 01-15-2025 Start: 01-15-2025 Azelastine 137 mcg (0.1 %) spray,non-aerosol Active 1 - 2 NMA INTRANASAL TWICE A DAY January 15, 2025 12:00am Start: 08-13-2023 End: 01-07-2025 Start: 08-13-2023 End: 01-07-2025 Azelastine 137 mcg (0.1 %) aerosol,spray Discontinued 137 ug INTRANASAL TWICE A DAY August 13, 2023 1:00am January 07, 2025 4:19pm Start: 12-06-2021 End: 07-18-2023 Start: 12-06-2021 End: 07-18-2023 Azelastine 137 mcg (0.1 %) aerosol,spray Discontinued 1 NMA INTRANASAL TWICE A DAY December 06, 2021 12:00am July 19, 2023 12:35am administer into each nostril Start: 12-06-2021 End: 07-18-2023 take 1 spray(s) nasal route twice daily Azelastine Discontinued 1 SPRAY INTRANASAL TWICE A DAY December 06, 2021 12:00am July 19, 2023 12:35am administer into each nostril Start: 01-21-2016 End: 12-06-2021 Astepro Discontinued 1 - 2 S PRAYS NASAL TWICE A DAY January 21, 2016 6:22pm December 06, 2021 3:27pm Start: 01-21-2016 End: 12-06-2021 Astepro Discontinued 1 - 2 S PRAYS NASAL TWICE A DAY January 20, 2016 11:00pm December 06, 2021 2:27pm Start: 01-21-2016 End: 12-06-2021 Astepro Discontinued 1 - 2 S PRAYS NASAL TWICE A DAY January 21, 2016 12:00am December 06, 2021 3:27pm Start: 08-23-2015 take 1-2 spray(s) na deepali route twice daily ASTEPRO 0.15 % SOLN 1-2 sprays in each nostril twice daily AZELASTINE HCL [id number] Kadie Álvarez RN Start: 08-23-2015 take 1-2 spray(s) na deepali route twice daily ASTEPRO 0.15 % SOLN 1-2 sprays in each nostril twice daily AZELASTINE HCL [id number] Kadie Álvarez RN take 1-2 spray(s) na deepali route twice daily Azelastine 0.15 % (205.5 mcg) spry Indications: Other iron deficiency anemia Use 1-2 Sprays in each nostril twice daily. 0 Active Comment on above: Use 1-2 Sprays in ea ch nostril twice daily. Budesonide-Formote rol (20 sources) Corticosteroid, beta2-Adrenergic Agonist Start: 12-06-2021 take 1 puff(s) by inhalation twice daily Budesonide-Formotero l (Symbicort) 160-4.5 mcg/actuation HFA aerosol inhaler Active 2 PUFF INHALATION TWICE A DAY December 06, 2021 3:29pm Start: 12-06-2021 End: 01-07-2025 Start: 12-06-2021 End: 01-07-2025 Budesonide-Formoterol (Symbi katherin) 160-4.5 mcg/actuation HFA aerosol inhaler Discontinued 2 NMA INHALATION TWICE A DAY December 06, 2021 12:00am January 07, 2025 3:29pm Start: 12-06-2021 take 1 puff(s) by in halation twice daily Budesonide-Formoterol (Symbicort) 160-4.5 mcg/actuation HFA aerosol inhaler Active 2 PUFF INHALATION TWICE A DAY December 05, 2021 11:00pm Start: 12-06-2021 take 1 puff(s) by in halation twice daily Budesonide-Formoterol (Symbicort) 160-4.5 mcg/actuation HFA aerosol inhaler Active 2 PUFF INHALATION TWICE A DAY December 06, 2021 12:00am Start: 10-31-2020 End: 12-06-2021 take 1 puff(s) by inhalation once daily Symbicort 160-4.5 Mcg Inhaler Discontinued 2 PUFF INHALATION DAILY October 31, 2020 11:26am December 06, 2021 3:30pm Start: 10-31-2020 End: 12-06-2021 Symbicort 160-4.5 Mcg Inhale r Discontinued 2 NMA INHALATION DAILY October 31, 2020 1:00am December 06, 2021 3:30pm Start: 10-31-2020 End: 12-06-2021 take 1 puff(s) by inhalation once daily Symbicort 160-4.5 Mcg Inhaler Discontinued 2 PUFF INHALATION DAILY October 31, 2020 12:00am December 06, 2021 2:30pm Start: 10-31-2020 End: 12-06-2021 take 1 puff(s) by inhalation once daily Symbicort 160-4.5 Mcg Inhaler Discontinued 2 PUFF INHALATION DAILY October 31, 2020 1:00am December 06, 2021 3:30pm Start: 01-21-2016 End: 10-18-2020 Start: 01-21-2016 End: 10-18-2020 Budesonide-Formoterol (Symbi katherin) 160-4.5 mcg/actuation HFA aerosol inhaler Discontinued 2 NMA INHALATION TWICE A DAY January 12, 2018 12:00am October 18, 2020 9:22am Start: 01-21-2016 End: 10-18-2020 take 1 puff(s) by inhalation twice daily Budesonide-Formoterol (Symbicort) 160-4.5 mcg/actuation HFA aerosol inhaler Discontinued 2 PUFF INHALATION TWICE A DAY January 11, 2018 11:00pm October 18, 2020 8:22am Start: 08-23-2015 SYMBICORT 160- 4.5 MCG/ACT AERO 2 puffs daily BUDESONIDE-FORMOTEROL FUMARATE [id number] Kadie Álvarez RN Start: 08-23-2015 SYMBICORT 160- 4.5 MCG/ACT AERO 2 puffs daily BUDESONIDE-FORMOTEROL FUMARATE [id number] Kadie Álvarez RN take 1 puff(s) by in halation twice daily budesonide-formoterol (SYMBICORT) 160-4.5 mcg/actuation inhaler Indications: Other iron deficiency anemia Inhale 1 Puff as instructed twice daily. 0 Active Comment on above: Inhale 1 Puff as ins tructed twice daily. Kfxbevobss-Kiwufgfv-Crejkgyl ol (5 sources) Corticosteroid, beta2-Adrenergic Agonist Start: 01-07-2025 Start: 01-07-2025 Budesonide-Gly copyr-Formoterol (Breztri Aerosphere) 160-9-4.8 mcg/actuation HFA aerosol inhaler Active 2 NMA INHALATION TWICE A DAY January 07, 2025 12:00am Start: 01-07-2025 Budesonide-Gly copyr-Formoterol [Budesonide 160 Mcg-Glycopyr 9 Mcg-Formot 4.8 Mcg/Actuation Hfa Inhaler] (Budesonide 160 Mcg-Glycopyr 9 Mcg-Formot 4.8 ) 160-9-4.8 mcg/actuation HFA aerosol inhaler Active NMA INHALATION January 07, 2025 12:00am clindamycin 300 mg oral capsule (20 sources) Lincosamide Antibacterial Start: 12-02-2021 take 300 mg by mouth three times daily Clindamycin Hcl Active 300 MG PO THREE TIMES A DAY December 02, 2021 2:57pm Start: 07-30-2020 End: 10-18-2020 Cod Liver Oil (20 sources) Start: 08-13-2023 take 1 capsule by mo uth once daily Cod Liver Oil Active 1 CAP PO DAILY August 13, 2023 1:00am Start: 08-13-2023 take 1 capsule by mo uth once daily Cod Liver Oil Active 1 CAP PO DAILY August 13, 2023 12:00am Start: 07-30-2023 End: 08-13-2023 take 1 mL by mouth once daily Cod Liver Oil Discontinu ed 10 ML PO DAILY July 30, 2023 1:00am August 13, 2023 2:52pm Start: 07-30-2023 End: 08-13-2023 take 1 mL by mouth once daily Cod Liver Oil Discontinu ed 10 ML PO DAILY July 30, 2023 12:00am August 13, 2023 1:52pm Start: 12-06-2021 take 1 capsule by mo uth once daily Cod Liver Oil Active 1 CAP PO DAILY December 06, 2021 3:27pm Start: 12-06-2021 End: 07-18-2023 take 1 capsule by mouth once daily Cod Liver Oil Discontinued 1 CAP PO DAILY December 06, 2021 12:00am July 19, 2023 12:32am Start: 12-06-2021 End: 07-18-2023 take 1 capsule by mouth once daily Cod Liver Oil Discontinued 1 CAP PO DAILY December 05, 2021 11:00pm July 18, 2023 11:32pm Start: 12-06-2021 take 1 capsule by mo uth once daily Cod Liver Oil Active 1 CAP PO DAILY December 05, 2021 11:00pm Start: 12-06-2021 take 1 capsule by mo uth once daily Cod Liver Oil Active 1 CAP PO DAILY December 06, 2021 12:00am Start: 08-16-2018 End: 12-06-2021 take 1 tablet by mouth at breakfast Cod Liver Oil Discontinued 1 TABLET PO WITH BREAKFAST August 16, 2018 5:45pm December 06, 2021 3:27pm Start: 08-16-2018 End: 12-06-2021 Cod Liver Oil Discontinued 1 {tbl} PO WITH BREAKFAST August 16, 2018 1:00am December 06, 2021 3:27pm Start: 08-16-2018 End: 12-06-2021 take 1 tablet by mouth at breakfast Cod Liver Oil Discontinued 1 TABLET PO WITH BREAKFAST August 16, 2018 12:00am December 06, 2021 2:27pm Start: 08-16-2018 End: 12-06-2021 take 1 tablet by mouth at breakfast Cod Liver Oil Discontinued 1 TABLET PO WITH BREAKFAST August 16, 2018 1:00am December 06, 2021 3:27pm 24 hr dilTIAZem hydrochlorid e 180 mg extended release oral capsule (20 sources) Calcium Channel Jefe Start: 01-07-2025 Start: 01-07-2025 take 1 capsule by mo uth every twenty-four hours Diltiazem Hcl 180 mg capsule,ext.rel 24h degradable Active mg PO January 07, 2025 12:00am Start: 08-16-2018 End: 01-07-2025 Start: 08-29-2015 take 1 tablet by martin th once daily DILT-XR 180 MG [id number] One tablet by mouth daily DILTIAZEM HCL [id number] Se Good MD Start: 08-29-2015 take 1 tablet by martin th once daily DILT-XR 180 MG [id number] One tablet by mouth daily DILTIAZEM HCL [id number] Se Good MD Comment on above: Take 180 mg by mouth once daily. empagliflozin 10 mg oral tab let (20 sources) Sodium-Glucose Cotransporter 2 Inhibitor Start: 10-18-2020 furosemide 40 mg oral tablet (20 sources) Loop Diuretic Start: 01-15-2025 End: 01-24-2025 Start: 01-24-2020 End: 06-21-2020 gabapentin 100 mg oral capsu le (20 sources) Anti-epileptic Agent Start: 08-13-2023 Start: 08-13-2023 take 1 capsule by mo uth at bedtime Gabapentin 100 mg capsule Active 100 mg PO AT BEDTIME August 13, 2023 1:00am Start: 01-24-2020 End: 08-13-2023 Start: 01-24-2020 End: 08-13-2023 Gabapentin 300 mg capsule Discontinued 100 mg PO AT BEDTIME January 24, 2020 12:00am August 13, 2023 2:57pm Start: 01-24-2020 End: 08-13-2023 take 100 mg by mouth at bedtime Gabapentin Discontinue d 100 MG PO AT BEDTIME January 24, 2020 12:00am August 13, 2023 2:57pm 3 ml insulin glargine 100 un t/ml pen injector (5 sources) Insulin Analog Start: 01-07-2025 Start: 01-07-2025 Insulin Glargi ne (Lantus Solostar U-100 Insulin) 100 unit/mL (3 mL) insulin pen Active 20 U SC TWICE A DAY January 07, 2025 12:00am Insulin Glargine-Yfgn (1 source) Start: 12-30-2023 Insulin Glargi ne-Yfgn Active 15 UNIT SC TWICE A DAY 0 December 30, 2023 12:00am Hold if glucose less than 130 mg/dl 3 ml insulin lispro 100 unt/ml pen injector (20 sources) Insulin Analog Start: 12-30-2023 End: 01-15-2024 Start: 12-30-2023 Insulin Lispro (Humalog Kwikpen Insulin) 100 unit/mL Insulin Pen Active 10 U SC THREE TIMES DAILY BEFORE MEALS December 30, 2023 12:00am Hold if glucose less than 120 mg/dl Start: 12-30-2023 End: 12-30-2023 Insulin Lispro (Humalog Kwik pen Insulin) 100 unit/mL Insulin Pen Discontinued 8 U SC THREE TIMES DAILY BEFORE MEALS December 30, 2023 12:00am December 30, 2023 3:40pm Hold if glucose less than 130 mg/dl Start: 12-30-2023 Insulin Lispro (Humalog Kwikpen Insulin) 100 unit/mL Insulin Pen Active 0 UNIT SC BEFORE MEALS AND AT BEDTIME December 30, 2023 12:00am Start: 01-21-2016 End: 01-12-2018 Start: 01-21-2016 End: 01-12-2018 Insulin Lispro 100 UNIT/ML c artridge Discontinued 2 U SC THREE TIMES A DAY January 21, 2016 12:00am January 12, 2018 10:14am ipratropium bromide 0.021 mg /actuat metered dose nasal spray (5 sources) Anticholinergic Start: 01-07-2025 Start: 01-07-2025 Ipratropium Br omide 21 mcg (0.03 %) spray,non-aerosol Active 1 - 2 NMA INTRANASAL EVERY 6 HOURS as needed for allergy symptoms January 07, 2025 12:00am latanoprost 0.05 mg/ml / netarsudil 0.2 mg/ml ophthalmic solution (9 sources) Prostaglandin Analog, Rho Kinase Inhibitor Start: 01-15-2024 End: 01-15-2025 Start: 01-15-2024 End: 01-15-2025 Netarsudil-Latanoprost (Rock latan) 0.02-0.005 % Drops Active 1 NMA EACH EYE DAILY January 15, 2025 12:00am levoFLOXacin 750 mg oral tablet (3 sources) Quinolone Antimicrobial Start: 01-24-2025 magnesium oxide 400 mg oral tablet (20 sources) Start: 08-16-2018 Comment on above: Take 400 mg by mouth twice daily. mecobalamin 1 mg chewable tablet (4 sources) Start: 01-15-2025 Menthol / Zinc Oxide (1 source) Start: 01-15-2025 Menthol-Zinc O xide ([place]oot[place]) 0.44-20.6 % ointment Active 1 NMA TOPICAL 4 TIMES DAILY as needed for skin irritation January 15, 2025 12:00am metoprolol tartrate 25 mg oral tablet (20 sources) beta-Adrenergic Jefe Start: 01-22-2016 End: 08-16-2018 take 1 tablet by mouth twice neftaly ly metoprolol succinate ER (TOPROL XL) 25 mg 24 hr tablet Indications: Other iron deficiency anemia Take 25 mg by mouth twice daily. 0 Active Comment on above: Take 25 mg by mouth twice daily. Multivitamin preparation (20 sources) Start: 12-06-2021 take 1 tablet by mouth once daily Multivitamin Active 1 TABLET PO DAILY December 06, 2021 3:29pm Start: 12-06-2021 take 1 tablet by martin th once daily Multivitamin Active 1 TABLET PO DAILY December 05, 2021 11:00pm Start: 12-06-2021 take 1 tablet by martin th once daily Multivitamin Active 1 TABLET PO DAILY December 06, 2021 12:00am Start: 10-31-2020 End: 12-06-2021 take 1 tablet by mouth once daily Multivitamin Discontinued 1 TABLET PO DAILY October 31, 2020 11:22am December 06, 2021 3:30pm Start: 10-31-2020 End: 12-06-2021 Multivitamin Discontinued 1 {tbl} PO DAILY October 31, 2020 1:00am December 06, 2021 3:30pm Start: 10-31-2020 End: 12-06-2021 take 1 tablet by mouth once daily Multivitamin Discontinued 1 TABLET PO DAILY October 31, 2020 12:00am December 06, 2021 2:30pm Start: 10-31-2020 End: 12-06-2021 take 1 tablet by mouth once daily Multivitamin Discontinued 1 TABLET PO DAILY October 31, 2020 1:00am December 06, 2021 3:30pm Multivitamin tablet (2 sources) Start: 12-06-2021 Multivitamin t ablet Active 1 {tbl} PO DAILY December 06, 2021 12:00am pantoprazole 40 mg delayed release oral tablet (20 sources) Proton Pump Inhibitor Start: 08-20-2018 End: 12-02-2019 Comment on above: Take 40 mg by mouth once daily. potassium chloride 20 meq extended release oral tablet (20 sources) Start: 01-24-2025 Start: 01-15-2025 End: 01-24-2025 Start: 12-06-2021 End: 08-17-2023 Start: 12-06-2021 End: 08-17-2023 Potassium Chloride (Klor-Con M20) 20 mEq tablet,ER particles/crystals Discontinued 40 meq PO TWICE A DAY December 06, 2021 12:00am August 17, 2023 12:18pm Start: 12-12-2019 take 2 tablets by mo uth twice daily potassium chloride 20 mEq TbER Take 2 tablets by mouth twice daily. 0 12/12/2019 Active Start: 12-02-2019 End: 12-06-2021 take 2 tablets by mouth twice daily Potassium Chloride Discontinued 2 TABLET PO TWICE A DAY December 02, 2019 11:46am December 06, 2021 3:29pm Start: 12-02-2019 End: 12-06-2021 take 2 tablets by mouth twice daily Potassium Chloride Discontinued 2 TABLET PO TWICE A DAY December 01, 2019 11:00pm December 06, 2021 2:29pm Start: 12-02-2019 End: 12-06-2021 take 2 tablets by mouth twice daily Potassium Chloride Discontinued 2 TABLET PO TWICE A DAY December 02, 2019 12:00am December 06, 2021 3:29pm Comment on above: Take 2 tablets by mo [facility] twice daily. pravastatin sodium 20 mg ora l tablet (20 sources) HMG-CoA Reductase Inhibitor Start: 08-23-2015 End: 12-06-2021 Comment on above: Take 20 mg by mouth once daily. predniSONE 20 mg oral tablet (20 sources) Start: 01-24-2025 Start: 05-30-2024 End: 01-15-2025 Start: 05-30-2024 End: 01-15-2025 take 2 tablets by mouth once daily Prednisone 20 mg tablet Discontinued 40 mg PO DAILY January 07, 2025 12:00am January 15, 2025 2:43pm Start: 05-30-2024 End: 01-07-2025 take 3 tablets by mouth once daily Prednisone 20 mg tablet Discontinued 60 mg PO DAILY May 30, 2024 12:00am January 07, 2025 4:20pm Start: 06-16-2014 End: 12-25-2014 Start: 06-16-2014 End: 12-25-2014 take 3 tablets by mouth once daily Prednisone 20 MG tablet Discontinued 60 mg PO DAILY June 16, 2014 12:00am December 25, 2014 10:21am Start: 06-16-2014 End: 12-25-2014 take 60 mg by mouth once daily Prednisone Discontinued 60 MG PO DAILY June 16, 2014 12:00am December 25, 2014 10:21am psyllium 400 mg oral capsule (20 sources) Start: 01-15-2025 Start: 12-06-2021 End: 07-18-2023 Start: 08-23-2015 PSYLLIUM HUSK 100 % POWD 3 times daily with water PSYLLIUM [id number] Kadie Álvarez RN Roflumilast (20 sources) Phosphodiesterase 4 Inhibitor Start: 08-13-2023 take 1 tablet by mouth once daily Roflumilast 500 mcg tablet Active 500 ug PO DAILY August 13, 2023 1:00am Start: 08-13-2023 take 500 ug by mouth once trino y Roflumilast Active 500 MCG PO DAILY August 13, 2023 1:00am Start: 08-13-2023 take 500 ug by mouth once trino y Roflumilast Active 500 MCG PO DAILY August 13, 2023 12:00am Start: 12-06-2021 End: 08-13-2023 take 1 tablet by mouth once daily Roflumilast (Daliresp) 250 mcg tablet Discontinued 500 ug PO DAILY December 06, 2021 12:00am August 13, 2023 2:54pm Start: 12-06-2021 End: 08-13-2023 take 1 tablet by mouth once daily Roflumilast (Daliresp) 250 mcg tablet Discontinued 500 MCG PO DAILY December 06, 2021 12:00am August 13, 2023 2:54pm Start: 12-06-2021 End: 08-13-2023 take 1 tablet by mouth once daily Roflumilast (Daliresp) 250 mcg tablet Discontinued 500 MCG PO DAILY December 05, 2021 11:00pm August 13, 2023 1:54pm Start: 12-06-2021 take 1 tablet by martin th once daily Roflumilast (Daliresp) 250 mcg tablet Active 500 MCG PO DAILY December 05, 2021 11:00pm Start: 10-31-2020 End: 12-06-2021 take 500 mg by mouth once daily Daliresp Discontinued 500 MG PO DAILY October 31, 2020 11:21am December 06, 2021 3:28pm Start: 10-31-2020 End: 12-06-2021 take 500 mg by mouth once daily Daliresp Discontinued 500 mg PO DAILY October 31, 2020 1:00am December 06, 2021 3:28pm Start: 10-31-2020 End: 12-06-2021 take 500 mg by mouth once daily Daliresp Discontinued 500 MG PO DAILY October 31, 2020 12:00am December 06, 2021 2:28pm Start: 10-31-2020 End: 12-06-2021 take 500 mg by mouth once daily Daliresp Discontinued 500 MG PO DAILY October 31, 2020 1:00am December 06, 2021 3:28pm Start: 08-16-2018 End: 08-20-2018 Comment on above: Take 500 mcg by mout h once daily. sacubitril 24 mg / valsartan 26 mg oral tablet (3 sources) Angiotensin 2 Receptor Jefe Start: 5 SITagliptin 50 mg oral tablet (20 sources) Dipeptidyl Peptidase 4 Inhibitor Start: 6 End: 1 Comment on above: Take 50 mg by mouth once daily. Tirzepatide (Mounjaro) 5 mg/0.5 mL pen injector (1 source) Start: 5 Tirzepatide (Mounjaro) 5 mg/0.5 mL pen injector Active 5 mg SC EVERY WEEK January 15, 2025 12:00am Vitamin T-Cqlewyavxpgp-Jypfrq l (15 sources) Start: 0 take 250 mg by mouth once daily Vitamin P-Unsqxxsybcpr-Bilgn al Active 250 MG PO DAILY December 02, 2019 11:46am Start: 12-02-2019 End: 07-18-2023 take 250 mg by mouth once daily Vitamin Z-Fainxptsjmlt-Vwxpbyg Discontinued 250 MG PO DAILY December 02, 2019 12:00am July 19, 2023 12:34am Start: 12-02-2019 End: 07-18-2023 take 250 mg by mouth once daily Vitamin R-Jtpsivygmivn-Jxjigpj Discontinued 250 MG PO DAILY December 01, 2019 11:00pm July 18, 2023 11:34pm Start: 12-02-2019 take 250 mg by mouth once daily Vitamin M-Vlxskqfaahpz-Yxdlzfs Active 25 0 MG PO DAILY December 01, 2019 11:00pm Start: 12-02-2019 take 250 mg by mouth once daily Vitamin C-Zjfnvxzlfxre-Cqatwpf Active 25 0 MG PO DAILY December 02, 2019 12:00am (20 sources) Start: 01-15-2025 Start: 01-07-2025 Start: 12-30-2023 End: 01-15-2025 Start: 08-17-2023 End: 12-30-2023 Start: 08-13-2023 Start: 08-13-2023 End: 01-15-2024 Start: 08-13-2023 End: 12-30-2023 Start: 07-30-2023 End: 08-13-2023 Start: 07-30-2023 End: 08-13-2023 Start: 12-06-2021 Start: 12-06-2021 End: 07-18-2023 Start: 12-06-2021 End: 08-13-2023 Start: 10-31-2020 End: 12-06-2021 Start: 10-31-2020 End: 12-06-2021 Start: 10-31-2020 End: 12-06-2021 Start: 10-31-2020 End: 12-06-2021 Start: 10-31-2020 End: 12-06-2021 Start: 12-02-2019 End: 08-17-2023 Start: 12-02-2019 End: 07-18-2023 Start: 12-02-2019 End: 12-06-2021 Start: 08-16-2018 End: 12-06-2021 Start: 08-16-2018 End: 08-20-2018 Start: 08-16-2018 End: 12-06-2021 Start: 08-16-2018 End: 01-07-2025 Start: 01-21-2016 End: 01-12-2018 Start: 01-21-2016 End: 12-06-2021 Start: 12-25-2014 End: 01-12-2018 Completed/Discontinued Medications Medication Drug Class(es) Dates Sig (Normalized) Sig (Original) acetaminophen 500 mg oral tablet (15 sources) Start: 12-30-2023 End: 01-15-2025 Start: 12-30-2023 End: 01-15-2024 take 2 tablets by mouth every eight hours Acetaminophen 500 mg Tablet Discontinued 1000 mg PO EVERY 8 HOURS December 30, 2023 12:00am January 15, 2024 1:56pm Start: 12-30-2023 take 1000 mg by mout h every eight hours Acetaminophen Active 1000 MG PO EVERY 8 HOURS December 30, 2023 12:00am acetaminophen 325 mg / oxyCO DONE hydrochloride 5 mg oral tablet (20 sources) Opioid Agonist Start: 12-10-2021 End: 12-13-2021 Start: 12-10-2021 End: 12-13-2021 Oxycodone-Acetaminophen (Per cocet) 5-325 mg tablet Discontinued 1 {tbl} PO EVERY 6 HOURS as needed for pain 06 02December 10, 2021 December 12, 2021 12:00am December 13, 2021 12:03am Start: 12-03-2021 End: 12-07-2021 Start: 12-03-2021 End: 12-07-2021 Oxycodone-Acetaminophen (Per cocet) 5-325 mg tablet Discontinued 1 {tbl} PO EVERY 6 HOURS as needed for pain 10 December 03, 2021 December 06, 2021 12:00am December 07, 2021 12:06am amLODIPine 5 mg oral tablet (4 sources) Dihydropyridine Calcium Channel Jefe Start: 08-23-2015 End: 08-29-2015 take 1 tablet by mouth once daily AMLODIPINE BESYLATE 5 MG TABS One tablet by mouth daily AMLODIPINE BESYLATE [id number] Se Good MD apixaban 5 mg oral tablet (11 sources) Factor Xa Inhibitor Start: 01-15-2024 End: 01-07-2025 Start: 12-30-2023 End: 01-15-2024 azithromycin 250 mg oral tab let (6 sources) Macrolide Antimicrobial Start: 01-07-2025 End: 01-15-2025 Start: 02-26-2022 Azithromycin A ctive 0 PO .COMPLEX February 26, 2022 12:00am For 250 mg dose pack: take 500 mg today (day 1), then 250 mg for 4 days (days 2-5) PO augmented betamethasone 0.00 05 mg/mg topical ointment (20 sources) Corticosteroid Start: 01-21-2016 End: 01-12-2018 Start: 01-21-2016 End: 01-12-2018 apply 15 g topically twice daily Betamethasone, Augmented Discontinued 15 GM TOPICAL TWICE A DAY January 21, 2016 12:00am January 12, 2018 10:07am Start: 08-23-2015 BETAMETHASONE DIPROPIONATE 0.05 % LOTN apply to lower legs 1-2 times daily BETAMETHASONE DIPROPIONATE [id number] Kadie Álvarez RN Start: 08-23-2015 BETAMETHASONE DIPROPIONATE 0.05 % LOTN apply to lower legs 1-2 times daily BETAMETHASONE DIPROPIONATE [id number] Kadie Álvarez RN bisacodyl 10 mg rectal suppo sitory (13 sources) Stimulant Laxative Start: 12-30-2023 End: 01-15-2024 Start: 08-23-2015 take 1 tablet by martin once daily as needed BISACODYL EC 5 MG TBEC One tablet by mouth daily as needed BISACODYL [id number] Kadie Álvarez RN calcium carbonate (2 sources) Start: 08-23-2015 take 1 tablet by mouth once daily CALCIUM 600 600 MG TABS One tablet by mouth daily CALCIUM CARBONATE [id number] Kadie Álvarez RN Calcium Carbonate / vitamin D3 (5 sources) take 1 tablet by mouth once daily CALCIUM CARBONATE/VITAMIN D3 (CALCIUM 600 + D,3, ORAL) Indications: Other iron deficiency anemia Take 1 tablet by mouth once daily. 0 Active Comment on above: Take 1 tablet by martin once daily. chlorpheniramine maleate 4 mg oral tablet (2 sources) Histamine-1 Receptor Antagonist Start: 08-29-2015 CHLORPHENIRAMINE MALEATE 4 MG TABS As needed CHLORPHENIRAMINE MALEATE [id number] Se Good MD cholecalciferol 0.025 mg oral capsule (20 sources) Vitamin D Start: 01-08-2023 End: 07-18-2023 Start: 12-06-2021 End: 07-18-2023 cholecalciferol, vitamin D3, (VITAMIN D3 ORAL) (5 sources) take 2000 [IU] by mouth once daily cholecalciferol, vitamin D3, (VITAMIN D3 ORAL) Take 2,000 Units by mouth once daily. 0 Active Comment on above: Take 2,000 Units by mouth once daily. ciprofloxacin 250 mg oral tablet (10 sources) Quinolone Antimicrobial Start: 023 End: 024 COD LIVER OIL CAPS (7 sources) Start: 015 take 1 tablet by mouth once daily COD LIVER OIL CAPS One tablet by mouth daily COD LIVER OIL CAPS [id number] Kadie Álvarez RN take 1 capsule by mouth once neftaly ly Cod Liver Oil cap Indications: Other iron deficiency anemia Take 1 capsule by mouth once daily. 0 Active Comment on above: Take 1 capsule by mo [facility] once daily. Cod Liver Oil capsule (4 sources) Start: 08-13-2023 End: 01-15-2024 Cod Liver Oil capsule Discontinued 1 NMA PO DAILY August 13, 2023 1:00am January 15, 2024 1:57pm Start: 12-06-2021 End: 07-18-2023 Cod Liver Oil capsule Discon tinued 1 NMA PO DAILY December 06, 2021 12:00am July 19, 2023 12:32am Cod Liver Oil oil (2 sources) Start: 07-30-2023 End: 08-13-2023 take 1 mL by mouth once daily Cod Liver Oil oil Discontinued 10 mL PO DAILY July 30, 2023 1:00am August 13, 2023 2:52pm docusate sodium 50 mg / sennosides, group home 8.6 mg oral tablet (20 sources) Start: 12-30-2023 End: 01-15-2024 Start: 12-30-2023 End: 01-15-2024 take 1 tablet by mouth twice daily Sennosides-Docusate Sodium (Stool Softener-Stimulant Laxat) 8.6-50 mg Tablet Discontinued 2 {tbl} PO TWICE A DAY 0 December 30, 2023 12:00am January 15, 2024 1:58pm Hold if more than 1 bowel movement per day Start: 12-02-2019 End: 10-18-2020 Sennosides-Docusate Sodium D iscontinued 1 EACH PO TWICE A DAY December 02, 2019 11:45am October 18, 2020 9:27am Start: 08-20-2018 End: 10-18-2020 Start: 08-20-2018 End: 10-18-2020 Sennosides-Docusate Sodium 1 EACH tablet Discontinued 1 NMA PO TWICE A DAY December 02, 2019 11:45am October 18, 2020 9:27am doxycycline monohydrate 100 mg oral capsule (6 sources) Tetracycline-class Drug Start: 05-30-2024 End: 01-07-2025 Start: 12-06-2021 take 100 mg by mouth twice daily Doxycycline Monohydrate Active 100 MG PO TWICE A DAY December 06, 2021 3:22pm 0.5 ml dulaglutide 1.5 mg/ml auto-injector (20 sources) GLP-1 Receptor Agonist Start: 08-13-2023 End: 01-15-2025 Start: 08-13-2023 End: 01-15-2025 Dulaglutide (Trulicity) 0.75 mg/0.5 mL pen injector Discontinued 0.75 mg SC MO August 13, 2023 1:00am January 15, 2025 2:47pm Start: 07-07-2022 End: 07-18-2023 Start: 07-07-2022 End: 07-18-2023 Dulaglutide (Trulicity) 0.75 mg/0.5 mL Pen Injector Discontinued 0.75 mg SC EVERY WEEK July 07, 2022 1:00am July 19, 2023 12:35am Ergocalciferol (17 sources) Provitamin D2 Compound Start: 10-31-2020 End: 12-06-2021 take 1 capsule by mouth every week Vitamin D2 Discontinued 1 CAP PO EVERY WEEK October 31, 2020 11:24am December 06, 2021 3:31pm SATURDAYS Start: 10-31-2020 End: 12-06-2021 Vitamin D2 Discontinued 1 NM A PO EVERY WEEK October 31, 2020 1:00am December 06, 2021 3:31pm SATURDAYS Start: 10-31-2020 End: 12-06-2021 take 1 capsule by mouth every week Vitamin D2 Discontinued 1 CAP PO EVERY WEEK October 31, 2020 12:00am December 06, 2021 2:31pm SATURDAYS Start: 10-31-2020 End: 12-06-2021 take 1 capsule by mouth every week Vitamin D2 Discontinued 1 CAP PO EVERY WEEK October 31, 2020 1:00am December 06, 2021 3:31pm SATURDAYS ferrous sulfate 325 mg oral tablet (20 sources) Start: 01-22-2016 End: 08-16-2018 Fiber (20 sources) Start: 08-13-2023 End: 12-30-2023 take 1 capsule by mouth once daily Fiber capsule Discontinued 1 NMA PO DAILY August 13, 2023 1:00am December 30, 2023 2:06pm Start: 08-13-2023 End: 12-30-2023 take 1 capsule by mouth once daily Fiber Discontinued 1 CAP PO DAILY August 13, 2023 1:00am December 30, 2023 2:06pm Start: 08-13-2023 take 1 capsule by mo [facility] once daily Fiber Active 1 CAP PO DAILY August 13, 2023 1:00am Start: 08-13-2023 take 1 capsule by mo [facility] once daily Fiber Active 1 CAP PO DAILY August 13, 2023 12:00am Start: 10-31-2020 End: 12-06-2021 take 1 capsule by mouth once daily Fiber Discontinued 1 CAP PO DAILY October 31, 2020 11:23am December 06, 2021 3:28pm Start: 10-31-2020 End: 12-06-2021 Fiber Discontinued 1 NMA PO DAILY October 31, 2020 1:00am December 06, 2021 3:28pm Start: 10-31-2020 End: 12-06-2021 take 1 capsule by mouth once daily Fiber Discontinued 1 CAP PO DAILY October 31, 2020 12:00am December 06, 2021 2:28pm Start: 10-31-2020 End: 12-06-2021 take 1 capsule by mouth once daily Fiber Discontinued 1 CAP PO DAILY October 31, 2020 1:00am December 06, 2021 3:28pm fluconazole 150 mg oral tablet (20 sources) Azole Antifungal Start: 03-09-2021 End: 08-14-2021 glimepiride 2 mg oral tablet (20 sources) Sulfonylurea Start: 01-24-2020 End: 10-18-2020 insulin aspart, human 100 unt/ml injectable solution (20 sources) Insulin Analog Start: 08-17-2023 End: 12-30-2023 Insulin Aspart U-100 100 UNIT/ML solution Discontinued 5 U SC TWICE DAILY WITH MEALS August 17, 2023 12:18pm December 30, 2023 2:11pm Start: 12-02-2019 End: 12-30-2023 Start: 12-02-2019 End: 08-17-2023 Insulin Aspart U-100 100 UNI T/ML solution Discontinued 22 U SC TWICE DAILY WITH MEALS December 02, 2019 12:00am August 17, 2023 12:19pm Start: 12-02-2019 inject 20 [IU] by avila bcutaneous injection twice daily at mealtime Insulin Aspart U-100 Active 20 UNIT SQ TWICE DAILY WITH MEALS December 02, 2019 11:46am Start: 08-16-2018 End: 08-20-2018 Start: 08-16-2018 End: 08-20-2018 Insulin Aspart U-100 (Novolo g Flexpen (Bkc)) 100 UNITS/ML Flexpen Discontinued 4 U SC 3 TIMES DAILY WITH MEALS August 16, 2018 1:00am August 20, 2018 1:38pm Start: 10-10-2013 insulin aspart (NOVOLOG) 100 unit/mL soln Indications: Type II or unspecified type diabetes mellitus with neurological manifestations, uncontrolled(250.62) HOLD 10/10/13. Take 6 units with breakfast, 4 units with lunch, and 7 units with supper. 2 Vial 11 10/10/2013 Active Comment on above: HOLD 10/10/13. Take 6 units with breakfast, 4 units with lunch, and 7 units with supper. insulin detemir (20 sources) Insulin Analogue Start: 08-17-2023 End: 12-30-2023 Insulin Detemir U-100 Discontinued 20 UNIT SC TWICE DAILY WITH MEALS August 17, 2023 12:18pm December 30, 2023 2:11pm . Start: 08-17-2023 Insulin Detemi r U-100 Active 20 UNIT SC TWICE DAILY WITH MEALS August 17, 2023 12:18pm . Start: 08-17-2023 Insulin Detemi r U-100 Active 20 UNIT SC TWICE DAILY WITH MEALS August 17, 2023 11:18am . Start: 12-02-2019 End: 08-17-2023 Insulin Detemir U-100 Discon tinued 56 UNITS SC TWICE DAILY WITH MEALS December 02, 2019 11:45am August 17, 2023 12:19pm . Start: 12-02-2019 End: 08-17-2023 Insulin Detemir U-100 Discon tinued 56 UNITS SC TWICE DAILY WITH MEALS December 02, 2019 10:45am August 17, 2023 11:19am . Start: 12-02-2019 Insulin Detemi r U-100 Active 56 UNITS SC TWICE DAILY WITH MEALS December 02, 2019 10:45am . Start: 12-02-2019 Insulin Detemi r U-100 Active 56 UNITS SC TWICE DAILY WITH MEALS December 02, 2019 11:45am . Start: 12-02-2019 Insulin Detemi r U-100 Active 56 UNITS SC TWICE DAILY WITH MEALS December 02, 2019 10:45am . Start: 12-02-2019 Insulin Detemi r U-100 Active 52 UNITS SC TWICE DAILY WITH MEALS December 02, 2019 11:45am . Start: 08-20-2018 End: 12-02-2019 Insulin Detemir U-100 (Levem ir Flextouch U100 Insulin) 100 UNITS/ML Insuln.Pen Discontinued 25 U SC TWICE A DAY 0 August 20, 2018 1:47pm December 02, 2019 11:46am . Start: 08-20-2018 End: 12-02-2019 Insulin Detemir U-100 (Levem ir Flextouch U-100 Insuln) 100 UNITS/ML Insuln.Pen Discontinued 25 UNITS SC TWICE A DAY 0 August 20, 2018 1:47pm December 02, 2019 11:46am . Start: 08-16-2018 End: 08-20-2018 Insulin Detemir U-100 (Levem ir Flextouch U100 Insulin) 100 UNITS/ML Insuln.Pen Discontinued 40 U SC TWICE A DAY August 16, 2018 5:58am August 20, 2018 1:47pm Give before breakfast & before supper Start: 08-16-2018 End: 08-20-2018 Insulin Detemir U-100 (Levem ir Flextouch U-100 Insuln) 100 UNITS/ML Insuln.Pen Discontinued 40 UNITS SC TWICE A DAY August 16, 2018 5:58am August 20, 2018 1:47pm Give before breakfast & before supper Start: 01-22-2016 End: 08-16-2018 Insulin Detemir U-100 100 UN ITS/ML insulin pen Discontinued 15 U SC AT BEDTIME January 22, 2016 12:00am August 16, 2018 5:59am Start: 01-22-2016 End: 08-16-2018 Insulin Detemir U-100 Discon tinued 15 UNITS SC AT BEDTIME January 22, 2016 12:00am August 16, 2018 5:59am Start: 01-21-2016 End: 12-02-2019 Start: 01-21-2016 End: 01-22-2016 Insulin Detemir U-100 (Levem ir (Bkc)) 100 UNITS/ML Insuln.Pen Discontinued 34 U SC DAILY January 21, 2016 12:00am January 22, 2016 11:13am Start: 08-23-2015 inject 15 [IU] by avila bcutaneous injection once daily at bedtime LEVEMIR 100 UNIT/ML SOLN 15 units SQ daily at bedtime INSULIN DETEMIR [id number] Mariana Finley RN Start: 08-23-2015 inject 28 [IU] by avila bcutaneous injection once daily LEVEMIR 100 UNIT/ML SOLN 28 units SQ daily INSULIN DETEMIR [id number] Kadie Álvarez RN Start: 08-23-2015 take 15 [IU] by subc utaneous injection once daily at bedtime LEVEMIR 100 UNIT/ML SOLN 15 units SQ daily at bedtime INSULIN DETEMIR [id number] Mariana Finley RN Start: 08-23-2015 take 28 [IU] by subc utaneous injection once daily LEVEMIR 100 UNIT/ML SOLN 28 units SQ daily INSULIN DETEMIR [id number] Kadie Álvarez RN inject 52 [IU] by [...] Inject 52 Units subc utaneously twice daily. Insulin Detemir U-100 100 UNITS/ML insulin pen (4 sources) Start: 08-17-2023 End: 12-30-2023 Insulin Detemir U-100 100 UNITS/ML insulin pen Discontinued 20 U SC TWICE DAILY WITH MEALS August 17, 2023 12:18pm December 30, 2023 2:11pm . Start: 12-02-2019 End: 08-17-2023 Insulin Detemir U-100 100 UN ITS/ML insulin pen Discontinued 56 U SC TWICE DAILY WITH MEALS December 02, 2019 11:45am August 17, 2023 12:19pm . Insulin Glargine-Yfgn 100 unit/mL (3 mL) Insulin Pen (2 sources) Start: 12-30-2023 End: 01-15-2025 Insulin Glargine-Yfgn 100 unit/mL (3 mL) Insulin Pen Discontinued 15 U SC TWICE A DAY 0 December 30, 2023 12:00am January 15, 2025 2:35pm Hold if glucose less than 130 mg/dl Start: 12-30-2023 Insulin Glargi ne-Yfgn 100 unit/mL (3 mL) Insulin Pen Active 15 U SC TWICE A DAY 0 December 30, 2023 12:00am Hold if glucose less than 130 mg/dl linaclotide 0.29 mg oral capsule (2 sources) Guanylate Cyclase-C Agonist Start: 08-23-2015 take 1 tablet by mouth once daily LINZESS 290 MCG CAPS One tablet by mouth daily LINACLOTIDE [id number] Kadie Álvarez RN Start: 08-23-2015 take 1 tablet by martin th once daily LINZESS 290 MCG CAPS One tablet by mouth daily LINACLOTIDE [id number] Kadie Álvarez RN lisinopril 40 mg oral tablet (20 sources) Angiotensin Converting Enzyme Inhibitor Start: 12-25-2014 End: 08-17-2023 Start: 09-09-2007 End: 08-17-2023 take 1 tablet by mouth twice daily Lisinopril 40 MG tablet Discontinued 40 mg PO TWICE A DAY December 25, 2014 12:00am August 17, 2023 12:17pm Comment on above: 1 pill twice daily lubiprostone 0.024 mg oral capsule (20 sources) Chloride Channel Activator Start: 8 End: Comment on above: Take 24 mcg by mouth twice daily with meals. magnesium (19 sources) Start: 6 End: 8 take 200 mg by mouth once daily Magnesium Discontinued 200 MG PO DAILY January 21, 2016 4:18am January 12, 2018 10:46am Start: 01-21-2016 End: 01-12-2018 take 1 tablet by mouth once daily Magnesium 200 MG tablet Discontinued 200 mg PO DAILY January 21, 2016 12:00am January 12, 2018 10:46am Start: 01-21-2016 End: 01-12-2018 take 200 mg by mouth once daily Magnesium Discontinued 200 MG PO DAILY January 20, 2016 11:00pm January 12, 2018 9:46am Start: 01-21-2016 End: 01-12-2018 take 200 mg by mouth once daily Magnesium Discontinued 200 MG PO DAILY January 21, 2016 12:00am January 12, 2018 10:46am Start: 08-23-2015 take 1 tablet by martin th once daily MAGNESIUM CAPS One tablet by mouth daily MAGNESIUM CAPS [id number] Kadie Álvarez RN metFORMIN hydrochloride 1000 mg oral tablet (2 sources) Biguanide take 1 tablet by mouth twice daily GLUCOPHAGE 1000 MG TABS One tablet by mouth twice daily METFORMIN HCL [id number] Julita Chau [employer] metFORMIN hydrochloride 1000 mg / SITagliptin 50 mg oral tablet (4 sources) Biguanide, Dipeptidyl Peptidase 4 Inhibitor Start: 5 End: 5 take 1 tablet by mouth twice daily JANUMET 50-1000 MG TABS One tablet by mouth twice daily SITAGLIPTIN-METFORMI N HCL [id number] Se Good MD Start: 08-23-2015 End: 08-29-2015 take 1 tablet by mouth twice daily JANUMET 50-1000 MG TABS One tablet by mouth twice daily SITAGLIPTIN-METFORMIN HCL [id number] Se Good MD Start: 08-23-2015 take 1 tablet by martin th twice daily JANUMET 50-1000 MG TABS One tablet by mouth twice daily SITAGLIPTIN-METFORMIN HCL [id number] Kadie Álvarez RN miSOPROStol 0.2 mg oral tablet (20 sources) Prostaglandin E1 Analog Start: 06-28-2020 End: 10-18-2020 MULTIPLE VITAMIN (2 sources) Start: 08-23-2015 take 1 tablet by mouth once daily MULTIVITAMINS TABS One tablet by mouth daily MULTIPLE VITAMIN Kadie Álvarez RN naproxen 500 mg oral tablet (20 sources) Nonsteroidal Anti-inflammatory Drug Start: 03-09-2021 End: 08-14-2021 nitrofurantoin, macrocrystals 25 mg / nitrofurantoin, monohydrate 75 mg oral capsule (12 sources) Nitrofuran Antibacterial Start: 07-19-2023 End: 07-30-2023 nystatin 100 unt/mg topical ointment (20 sources) Polyene Antifungal Start: 07-30-2020 End: 10-18-2020 Start: 07-30-2020 End: 10-18-2020 Nystatin 100,000 unit/gram o intment Discontinued 1 NMA TOPICAL TWICE A DAY July 30, 2020 1:00am October 18, 2020 9:26am Start: 07-30-2020 End: 10-18-2020 Nystatin Discontinued 1 APPL IC TOPICAL TWICE A DAY July 30, 2020 1:00am October 18, 2020 9:26am ondansetron 8 mg oral tablet (12 sources) Serotonin-3 Receptor Antagonist Start: 07-15-2023 End: 07-30-2023 oxyCODONE hydrochloride 5 mg oral tablet (6 sources) Opioid Agonist Start: 12-30-2023 End: 01-15-2024 Start: 12-30-2023 Oxycodone Acti ve 2.5 MG PO EVERY 4 HOURS NEEDED 0 December 30, 2023 Oxycodone 2.5 mg for moderate pain and 5 mg for severe pain respectively. polyethylene glycol 3350 170 00 mg powder for oral solution (20 sources) Osmotic Laxative Start: 12-30-2023 End: 01-15-2024 Start: 08-20-2018 End: 08-13-2023 Start: 08-20-2018 End: 08-13-2023 Polyethylene Glycol 3350 17 GM packet Discontinued 0.5 NMA PO TWICE A DAY December 02, 2019 11:45am August 13, 2023 2:59pm 09/03-09/01 capful before each meal Comment on above: Take 17 g by mouth o nce daily as needed. Potassium Chloride 20 MEQ Tab.Er.Prt (2 sources) Start: 12-02-2019 End: 12-06-2021 Potassium Chloride 20 MEQ Tab.Er.Prt Discontinued 2 {tbl} PO TWICE A DAY December 02, 2019 12:00am December 06, 2021 3:29pm promethazine hydrochloride 12.5 mg oral tablet (20 sources) Phenothiazine Start: 01-24-2020 End: 10-18-2020 Start: 08-23-2015 take 1 tablet by martin three times daily as needed PROMETHAZINE HCL 12.5 MG TABS One tablet by mouth three times daily as needed PROMETHAZINE HCL [id number] Kadie Álvarez RN PSYLLIUM RICO WIGGINS MISC (5 sources) PSYLLIUM HUSK, B VALENTINE MISC Indications: Other iron deficiency anemia One powder packet in 3-4 ounces of water every four hours as needed. 0 Active Comment on above: One powder packet in 3-4 ounces of water every four hours as needed. raNITIdine 150 mg oral tablet (20 sources) Histamine-2 Receptor Antagonist Start: 8 End: 8 take 2 tablets by mouth at dinner Ranitidine Hcl 150 MG tablet Discontinued 300 mg PO WITH DINNER August 16, 2018 1:00am August 20, 2018 1:39pm Start: 08-16-2018 End: 08-20-2018 take 300 mg by mouth at dinner Ranitidine Hcl Disconti nued 300 MG PO WITH DINNER August 16, 2018 1:00am August 20, 2018 1:39pm Start: 08-16-2018 End: 08-20-2018 take 300 mg by mouth at dinner Ranitidine Hcl Disconti nued 300 MG PO WITH DINNER August 16, 2018 1:00am August 20, 2018 1:39pm Start: 08-23-2015 take 1 tablet by martin once daily RANITIDINE HCL 300 MG CAPS One tablet by mouth daily RANITIDINE HCL [id number] Kadie Álvarez RN Comment on above: Take 300 mg by mouth once daily. sennosides, group home 8.6 mg oral tablet (5 sources) take 1 tablet by mouth twice daily senna (SENNA LAXATIVE) 8.6 mg tab Take 8.6 mg by mouth twice daily. 0 Active Comment on above: Take 8.6 mg by mouth twice daily. sodium chloride 0.111 meq/ml nasal spray (5 sources) sodium chloride (SALINE MIST) 0.65 % nasal spray Use 1 [place] in the nose as needed. 0 Active Comment on above: Use 1 [place] in the n ose as needed. sucralfate 1000 mg oral tablet (20 sources) Aluminum Complex Start: 03-18-20 End: 08-14-20 sulfamethoxazole 800 mg / trimethoprim 160 mg oral tablet (20 sources) Dihydrofolate Reductase Inhibitor Antibacterial, Sulfonamide Antimicrobial Start: 11-23-19 End: 11-26-19 Start: 11-22-2018 End: 11-25-2018 Sulfamethoxazole-Trimethopri m 1 TABLET tablet Discontinued 1 {tbl} PO TWICE A DAY 6 November 22, 2018 12:00am November 24, 2018 12:00am November 25, 2018 12:08am Start: 11-22-2018 End: 11-25-2018 take 1 tablet by mouth twice daily Sulfamethoxazole-Trimethoprim Discontinu ed 1 TABLET PO TWICE A DAY 6 3 November 22, 2018 12:00am November 25, 2018 12:08am Start: 10-19-2018 End: 10-22-2018 Start: 10-19-2018 End: 10-22-2018 Sulfamethoxazole-Trimethopri m 1 TABLET tablet Discontinued 1 {tbl} PO TWICE A DAY 6 3 October 19, 2018 1:00am October 21, 2018 1:00am October 22, 2018 1:10am Start: 10-19-2018 End: 10-22-2018 take 1 tablet by mouth twice daily Sulfamethoxazole-Trimethoprim Discontinu ed 1 TABLET PO TWICE A DAY 6 3 October 19, 2018 1:00am October 22, 2018 1:10am tiotropium 0.018 mg inhalati on powder (20 sources) Anticholinergic Start: 01-24-2020 End: 10-18-2020 Start: 01-24-2020 End: 10-18-2020 Tiotropium [place] (Spiriva With Handihaler) 18 mcg capsule, w/inhalation device Discontinued 1 NMA INHALATION NEEDED as needed for Sob &/Or Wheezing January 24, 2020 12:00am October 18, 2020 9:28am puncture 1 cap using device; one dose = 2 inhalations Start: 01-24-2020 End: 10-18-2020 Tiotropium [place] (Spiriva With Handihaler) 18 mcg capsule, w/inhalation device Discontinued 1 PUFF INHALATION NEEDED January 24, 2020 12:00am October 18, 2020 9:28am puncture 1 cap using device; one dose = 2 inhalations Start: 08-23-2015 SPIRIVA HANDIH ALER 18 MCG CAPS as needed TIOTROPIUM BROMIDE MONOHYDRATE [id number] Kadie Álvarez RN Start: 08-23-2015 SPIRIVA HANDIH ALER 18 MCG CAPS as needed TIOTROPIUM BROMIDE MONOHYDRATE [id number] Kadie Álvarez RN Start: 12-25-2014 End: 01-12-2018 take 18 ug by inhalation twice daily Spiriva 18 MCG Discontinued 18 MCG INHALATION TWICE A DAY December 25, 2014 10:20am January 12, 2018 10:26am Start: 12-25-2014 End: 01-12-2018 take 18 ug by inhalation twice daily Spiriva 18 MCG Discontinued 18 ug INHALATION TWICE A DAY December 25, 2014 12:00am January 12, 2018 10:26am Start: 12-25-2014 End: 01-12-2018 take 18 ug by inhalation twice daily Spiriva 18 MCG Discontinued 18 MCG INHALATION TWICE A DAY December 24, 2014 11:00pm January 12, 2018 9:26am Start: 12-25-2014 End: 01-12-2018 take 18 ug by inhalation twice daily Spiriva 18 MCG Discontinued 18 MCG INHALATION TWICE A DAY December 25, 2014 12:00am January 12, 2018 10:26am traMADol hydrochloride 50 mg oral tablet (20 sources) Opioid Agonist Start: 01-15-2024 End: 01-07-2025 Start: 01-21-2016 End: 01-12-2018 Start: 01-21-2016 End: 01-12-2018 take 1 tablet by mouth every eight hours as needed for pain Tramadol 50 MG tablet Discontinued 50 mg PO EVERY 8 HOURS NEEDED as needed for pain hip/buttock January 21, 2016 12:00am January 12, 2018 10:27am triamcinolone acetonide 0.001 mg/mg topical ointment (5 sources) Corticosteroid Start: 01-07-2025 End: 01-15-2025 Vitamin B-Lhtmjbkpophw-Dflseof 500 MG tablet,chewable (2 sources) Start: 12-02-2019 End: 07-18-2023 Vitamin G-Yyslrptejrga-Kvyrjgu 500 MG tablet,chewable Discontinued 250 mg PO DAILY December 02, 2019 12:00am July 19, 2023 12:34am Problems Active Problems Problem Classification Problem Date Documented Da te Episodic/Chronic Abdominal pain (5 sources) Abdominal pain; Translations: [Unspecified abdominal pain] 11-13-2006 Episodic Acute and unspecified renal failure (20 sources) Acute renal failure syndrome; Translations: [Acute kidney failure, unspecified] 12-02-2019 Episodic Acute bronchitis (5 sources) Acute exacerbation of chronic bronchitis; Translations: [Acute bronchitis, unspecified] 06-07-2024 Episodic Asthma (20 sources) Asthma; Translations: [Unspecified asthma, uncomplicated] Onset: 6 10-10-2013 Chronic Cancer of breast (10 sources) Malignant neoplasm of female breast; Translations: [Malignant neoplasm of unspecified site of unspecified female breast] Onset: 5 06-11-2005 Chronic Cancer of breast (20 sources) History of malignant neoplasm of breast; Translations: [Personal history of malignant neoplasm of breast] 01-24-2020 Episodic Comment on above: lumpectomy in 2003 Cardiac dysrhythmias (3 sources) Irregular heart beat; Translations: [Cardiac arrhythmia, unspecified] 01-21-2025 Chronic Chronic kidney disease (20 sources) Chronic renal failure; Translations: [Chronic renal failure, stage 3 (moderate)] Chronic Chronic obstructive pulmonary disease and bronchiectasis (20 sources) Chronic obstructive lung disease; Translations: [Chronic obstructive pulmonary disease, unspecified] Onset: 5 01-24-2020 Chronic Complication of device; implant or graft (20 sources) Complication of urinary catheter; Translations: [Unspecified complication of genitourinary prosthetic device, implant and graft, initial encounter] 11-20-2018 Episodic Congestive heart failure; nonhypertensive (10 sources) Acute exacerbation of chronic congestive heart failure; Translations: [Heart failure, unspecified] Onset: 5 01-21-2025 Chronic Coronary atherosclerosis and other heart disease (9 sources) Coronary arteriosclerosis; Translations: [Atherosclerotic heart disease of [place] coronary artery without angina pectoris] Onset: 5 12-30-2023 Chronic Deficiency and other anemia (8 sources) Iron deficiency anemia due to blood loss; Translations: [Iron deficiency anemia secondary to blood loss (chronic)] Onset: 1 Chronic Deficiency and other anemia (3 sources) Anemia; Translations: [Anemia, unspecified] Onset: 6 04-11-2016 Episodic Deficiency and other anemia (20 sources) Microcytic anemia; Translations: [Iron deficiency anemia, unspecified] 01-24-2020 Episodic Deficiency and other anemia (20 sources) Iron deficiency anemia; Translations: [Iron deficiency anemia, unspecified] 07-10-2020 Episodic Deficiency and other anemia (1 source) Iron deficiency anemia, unspecified; Translations: [Iron deficiency anemia, unspecified] 12-30-2023 Episodic Diabetes mellitus with complications (20 sources) Retinopathy due to diabetes mellitus; Translations: [Type 2 diabetes mellitus with unspecified diabetic retinopathy without macular edema] Onset: 6 10-10-2013 Chronic Diabetes mellitus without complication (20 sources) Diabetes mellitus; Translations: [Type 2 diabetes mellitus] Onset: 1 08-23-2015 Chronic Diseases of white blood cells (7 sources) Leukocytosis; Translations: [Elevated white blood cell count, unspecified] Onset: 5 01-20-2025 Chronic Disorders of lipid metabolism (20 sources) Hyperlipidemia; Translations: [Hyperlipidemia, unspecified] Onset: 8 05-04-2008 Chronic E Codes: Fall (20 sources) Fall; Translations: [Unspecified fall, initial encounter] 08-25-2023 Episodic Esophageal disorders (20 sources) Gastroesophageal reflux disease; Translations: [Gastro-esophageal reflux disease without esophagitis] 07-10-2020 Chronic Essential hypertension (20 sources) Hypertensive disorder; Translations: [Essential (primary) hypertension] Onset: 5 10-09-2015 Chronic Fluid and electrolyte disorders (20 sources) Hyponatremia; Translations: [Hypo-osmolality and hyponatremia] Onset: 7 04-20-2007 Episodic Genitourinary symptoms and ill-defined conditions (20 sources) Retention of urine; Translations: [Retention of urine, unspecified] 01-24-2020 Episodic Heart valve disorders (20 sources) Nonrheumatic aortic (valve) stenosis; Translations: [Aortic valve stenosis] Onset: 5 04-11-2016 Chronic Comment on above: valve area in 2015 w as 1.7cm2 Menopausal disorders (20 sources) Postmenopausal bleeding; Translations: [Postmenopausal bleeding] Onset: 4 06-21-2020 Chronic Comment on above: TVUS showed 7 mm domo ing. EMB done and if normal, no further intervention unless persistent then would recommend d and c hysteroscopy Nausea and vomiting (18 sources) Vomiting; Translations: [Vomiting, unspecified] 04-02-2022 Episodic Noninfectious gastroenteritis (16 sources) Gastroenteritis; Translations: [Noninfective gastroenteritis and colitis, unspecified] 07-15-2023 Episodic Other aftercare (1 source) Aftercare following joint replacement surgery; Translations: [Aftercare following joint replacement surgery] Onset: 5 Chronic Other and unspecified benign neoplasm (20 sources) Polyp of colon; Translations: [Polyp of colon] 07-10-2020 Episodic Comment on above: removed with a hot s nare in Jul 2018....tubular adenoma Other circulatory disease (5 sources) H/O: heart disorder; Translations: [Personal history of other diseases of the circulatory system] 06-07-2024 Episodic Other congenital anomalies (5 sources) Congenital anomaly of skin; Translations: [Other specified congenital malformations of skin] Onset: 0 11-21-2009 Chronic Other connective tissue disease (1 source) Presence of left artificial hip joint; Translations: [Presence of left artificial hip joint] Onset: 5 Chronic Other diseases of bladder and urethra (20 sources) Neurogenic bladder; Translations: [Neuromuscular dysfunction of bladder, unspecified] 03-25-2022 Chronic Other diseases of bladder and urethra (3 sources) Neuromuscular dysfunction of bladder, unspecified; Translations: [Neurogenic bladder NOS] 08-17-2023 Chronic Other diseases of veins and lymphatics (5 sources) Difficult venous access; Translations: [Other specified disorders of veins] 01-01-2024 Episodic Other gastrointestinal disorders (5 sources) Malabsorption - iron; Translations: [Intestinal malabsorption, unspecified] Onset: 1 02-06-2021 Chronic Other gastrointestinal disorders (20 sources) H/O: gastrointestinal disease; Translations: [Personal history of other diseases of the digestive system] 01-24-2020 Episodic Other gastrointestinal disorders (5 sources) Acute constipation; Translations: [Constipation, unspecified] 06-07-2024 Episodic Other lower respiratory disease (12 sources) Dyspnea; Translations: [Shortness of breath] Onset: 5 08-23-2015 Episodic Other lower respiratory disease (5 sources) Cough; Translations: [Cough] 01-07-2025 Episodic Other lower respiratory disease (1 source) Dyspnea, unspecified; Translations: [Dyspnea, unspecified] Onset: 5 Episodic Other lower respiratory disease (1 source) Shortness of breath; Translations: [Shortness of breath] Onset: 5 Episodic Other nervous system disorders (5 sources) Carpal tunnel syndrome; Translations: [Carpal tunnel syndrome, unspecified upper limb] Onset: 6 07-13-2006 Chronic Other nutritional; endocrine; and metabolic disorders (3 sources) Overweight; Translations: [Body mass index (BMI) 34.0-34.9, adult] Onset: 5 01-26-2017 Chronic Other nutritional; endocrine; and metabolic disorders (1 source) Body mass index (BMI) 34.0-34.9, adult; Translations: [Body mass index (BMI) 34.0-34.9, adult] Onset: 5 08-29-2015 Chronic Other nutritional; endocrine; and metabolic disorders (20 sources) Hypophosphatemia; Translations: [Other disorders of phosphorus metabolism] 01-24-2020 Chronic Other nutritional; endocrine; and metabolic disorders (20 sources) Hypercalcemia; Translations: [Hypercalcemia] 08-12-2021 Chronic Other nutritional; endocrine; and metabolic disorders (2 sources) Hypercalcemia; Translations: [Hypercalcemia] Chronic Other nutritional; endocrine; and metabolic disorders (5 sources) Hypomagnesemia; Translations: [Hypomagnesemia] 12-30-2023 Chronic Other nutritional; endocrine; and metabolic disorders (6 sources) Obese class I; Translations: [Class 1 obesity] 01-20-2025 Chronic Other nutritional; endocrine; and metabolic disorders (16 sources) H/O: raised blood lipids; Translations: [Personal history of other endocrine, nutritional and metabolic disease] 01-28-2023 Episodic Other screening for suspected conditions (not mental disorders or infectious disease) (19 sources) Mammography abnormal; Translations: [Other abnormal and inconclusive findings on diagnostic imaging of breast] Onset: 8 02-23-2008 Episodic Other upper respiratory disease (5 sources) Allergic rhinitis; Translations: [Allergic rhinitis, unspecified] Onset: 5 06-09-2005 Chronic Other upper respiratory disease (5 sources) Acute bronchospasm; Translations: [Acute bronchospasm] 06-07-2024 Episodic Peripheral and visceral atherosclerosis (10 sources) Peripheral vascular disease, unspecified; Translations: [Peripheral vascular disease, unspecified] Onset: 1 05-28-2011 Chronic Phlebitis; thrombophlebitis and thromboembolism (20 sources) History of thromboembolism of vein; Translations: [Personal history of other venous thrombosis and embolism] 01-24-2020 Episodic Pneumonia (except that caused by tuberculosis or sexually transmitted disease) (7 sources) Pneumonia; Translations: [Pneumonia, unspecified organism] Onset: 5 01-20-2025 Episodic Residual codes; unclassified (20 sources) Tobacco use and exposure - finding; Translations: [Tobacco use] 11-22-2018 Episodic Residual codes; unclassified (12 sources) Past history of procedure; Translations: [Other specified health status] 07-19-2023 Episodic Respiratory failure; insufficiency; arrest (adult) (1 source) Chronic respiratory failure with hypercapnia; Translations: [Chronic respiratory failure with hypercapnia] Onset: 5 Chronic Respiratory failure; insufficiency; arrest (adult) (13 sources) Mtsti-zn-cgkkydh respiratory failure; Translations: [Acute respiratory failure with hypoxia] Onset: 5 01-20-2025 Episodic Screening and history of mental health and substance abuse codes (20 sources) Ex-smoker; Translations: [Personal history of nicotine dependence] 01-24-2020 Episodic Skin and subcutaneous tissue infections (20 sources) Cutaneous abscess of right hand; Translations: [Abscess] Onset: 8 Episodic Comment on above: resolved. Spondylosis; intervertebral disc disorders; other back problems (20 sources) Stenosis of lumbar vertebral foramen; Translations: [Spinal stenosis, lumbar region without neurogenic claudication] Onset: 2 12-25-2003 Episodic Comment on above: Severe stenosis at L 3-4 and L4-[address] scan of the lumbar spine in October 2019 Substance-related disorders (5 sources) Tobacco user; Translations: [Nicotine dependence, unspecified, uncomplicated] Onset: 9 12-27-2008 Chronic Superficial injury; contusion (11 sources) Contusion of hip; Translations: [Contusion of right hip, initial encounter] 08-15-2023 Episodic Thyroid disorders (20 sources) Goiter; Translations: [Nontoxic goiter, unspecified] Onset: 7 Chronic Unclassified (1 source) Acidosis, unspecified; Translations: [Acidosis, unspecified] Onset: 5 Unclassified (1 source) Obesity, class 1; Translations: [Obesity, class 1] Onset: Past or Other Problems Problem Classification Problem Date Documented Da te Episodic/Chronic Acquired foot deformities (5 sources) Talipes planus; Translations: [Flat foot [pes planus] (acquired), unspecified foot] Onset: 11-10-2012 11-10-2012 Episodic Acute posthemorrhagic anemia (5 sources) Acute posthemorrhagic anemia; Translations: [Acute posthemorrhagic anemia] Onset: 01-10-2020 01-10-2020 Episodic Allergic reactions (5 sources) Contact dermatitis; Translations: [Unspecified contact dermatitis, unspecified cause] Onset: 03-09-2007 03-09-2007 Episodic Fracture of neck of femur (hip) (10 sources) Closed fracture of hip; Translations: [Fracture of unspecified part of neck of left femur, initial encounter for closed fracture] Onset: 09-07-2024 12-27-2023 Episodic Malaise and fatigue (20 sources) Asthenia; Translations: [Weakness] Onset: 05-30-2024 07-19-2023 Episodic Mycoses (5 sources) Onychomycosis due to [...] [Constipation, unspecified] Onset: 07-31-2005 07-31-2005 Episodic Other skin disorders (5 sources) Sebaceous cyst of skin; Translations: [Sebaceous cyst] Onset: 03-31-2006 03-31-2006 Episodic Other skin disorders (5 sources) Disorder of sebaceous gland; Translations: [Other specified follicular disorders] Onset: 03-09-2007 03-09-2007 Episodic Unclassified (2 sources) FH: Hypertension; Translations: [Family history of ischemic heart disease and other diseases of the circulatory system] 08-23-2015 Episodic Urinary tract infections (20 sources) Urinary tract infectious disease; Translations: [Urinary tract infection, site not specified] Onset: 08-15-2024 07-10-2020 Episodic Varicose veins of lower extremity (5 sources) Varicose vein of leg with phlebitis; Translations: [Varicose veins of unspecified lower extremity with inflammation] Onset: 03-09-2007 03-09-2007 Episodic Results Test Name Value Interpretation Reference Range Facility Cardiology Visit Reporton Cardiology Visit Report Normal [facility] Basic Metabolic Profile (BMP )on 01-30-2025 BUN Normal 4-19 [facility] Comment on above: Result Comment: Canc elled via OM: Order cancelled - Patient discharged Performed By: #### L 500.2500, L100.0100 ####[facility] [address] [place], [address] BUN/CRE Normal 10-20 [facility] Comment on above: Result Comment: Canc elled via OM: Order cancelled - Patient discharged Performed By: #### L 500.2500, L100.0100 ####[facility] [address] [place], [address] Calcium Normal 7.6-11.0 [facility] Comment on above: Result Comment: Canc elled via OM: Order cancelled - Patient discharged Performed By: #### L 500.2500, L100.0100 ####[facility] [address] [place], [address] CL Normal 98-108 [facility] Comment on above: Result Comment: Canc elled via OM: Order cancelled - Patient discharged Performed By: #### L 500.2500, L100.0100 ####[facility] [address] [place], [address] CO2 Normal 21.0-32.0 [facility] Comment on above: Result Comment: Canc elled via OM: Order cancelled - Patient discharged Performed By: #### L 500.2500, L100.0100 ####[facility] [address] [place], [address] CREAT,SERUM Normal 0.70-1.20 [facility] Comment on above: Result Comment: Canc elled via OM: Order cancelled - Patient discharged Performed By: #### L 500.2500, L100.0100 ####[facility] [address] [place], [address] eGFR Normal >60 [facility] Comment on above: Result Comment: Canc elled via OM: Order cancelled - Patient discharged Performed By: #### L 500.2500, L100.0100 ####[facility] [address] [place], [address] GAP Normal 5-15 [facility] Comment on above: Result Comment: Canc elled via OM: Order cancelled - Patient discharged Performed By: #### L 500.2500, L100.0100 ####[facility] [address] [place], [address] GLU Normal 70-99 [facility] Comment on above: Result Comment: Canc elled via OM: Order cancelled - Patient discharged Performed By: #### L 500.2500, L100.0100 ####[facility] [address] [place], [address] Potassium Normal 3.3-5.1 [facility] Comment on above: Result Comment: Canc elled via OM: Order cancelled - Patient discharged Performed By: #### L 500.2500, L100.0100 ####[facility] [address] [place], [address] Basic Metabolic Profile (BMP) Normal 133-145 [facility] Comment on above: Result Comment: Canc elled via OM: Order cancelled - Patient discharged Performed By: #### L 500.2500, L100.0100 ####[facility] [address] [place], [address] CBC W/Diff, Automatedon 06-0 2-2024 Absolute Neut Normal 2.0-7.7 [facility] Comment on above: Result Comment: Canc elled via OM: Order cancelled - Patient discharged Performed By: #### L 500.2500, L100.0100 ####[facility] [address] [place], [address] HCT Normal 37-47 [facility] Comment on above: Result Comment: Canc elled via OM: Order cancelled - Patient discharged Performed By: #### L 500.2500, L100.0100 ####[facility] [address] [place], [address] HGB Normal 12.0-15.0 [facility] Comment on above: Result Comment: Canc elled via OM: Order cancelled - Patient discharged Performed By: #### L 500.2500, L100.0100 ####[facility] [address] [place], [address] MCH Normal 27.0-32.0 [facility] Comment on above: Result Comment: Canc elled via OM: Order cancelled - Patient discharged Performed By: #### L 500.2500, L100.0100 ####[facility] [address] [place], [address] MCHC Normal 32-36 [facility] Comment on above: Result Comment: Canc elled via OM: Order cancelled - Patient discharged Performed By: #### L 500.2500, L100.0100 ####[facility] [address] [place], [address] MCV Normal 81-99 [facility] Comment on above: Result Comment: Canc elled via OM: Order cancelled - Patient discharged Performed By: #### L 500.2500, L100.0100 ####[facility] [address] [place], [address] NEUT% Normal 47-70 [facility] Comment on above: Result Comment: Canc elled via OM: Order cancelled - Patient discharged Performed By: #### L 500.2500, L100.0100 ####[facility] [address] [place], [address] PLT Normal 150-450 [facility] Comment on above: Result Comment: Canc elled via OM: Order cancelled - Patient discharged Performed By: #### L 500.2500, L100.0100 ####[facility] [address] [place], [address] RBC Normal 4.2-5.4 [facility] Comment on above: Result Comment: Canc elled via OM: Order cancelled - Patient discharged Performed By: #### L 500.2500, L100.0100 ####[facility] [address] [place], [address] RDW CV Normal 11.6-14.6 [facility] Comment on above: Result Comment: Canc elled via OM: Order cancelled - Patient discharged Performed By: #### L 500.2500, L100.0100 ####[facility] [address] [place], [address] RDW SD Normal 35.1-43.9 [facility] Comment on above: Result Comment: Canc elled via OM: Order cancelled - Patient discharged Performed By: #### L 500.2500, L100.0100 ####[facility] [address] [place], [address] WBC Normal 4.4-11.0 [facility] Comment on above: Result Comment: Canc elled via OM: Order cancelled - Patient discharged Performed By: #### L 500.2500, L100.0100 ####[facility] [address] [place], [address] Basic Metabolic Profile (BMP )on 01-29-2025 BUN Normal 4-19 [facility] Comment on above: Result Comment: Canc elled via OM: Order cancelled - Patient discharged Performed By: #### L 100.0100, L500.2500 ####[facility] [address] [place], [address] BUN/CRE Normal 10-20 [facility] Comment on above: Result Comment: Canc elled via OM: Order cancelled - Patient discharged Performed By: #### L 100.0100, L500.2500 ####[facility] [address] [place], [address] Calcium Normal 7.6-11.0 [facility] Comment on above: Result Comment: Canc elled via OM: Order cancelled - Patient discharged Performed By: #### L 100.0100, L500.2500 ####[facility] [address] [place], [address] CL Normal 98-108 [facility] Comment on above: Result Comment: Canc elled via OM: Order cancelled - Patient discharged Performed By: #### L 100.0100, L500.2500 ####[facility] [address] [place], [address] CO2 Normal 21.0-32.0 [facility] Comment on above: Result Comment: Canc elled via OM: Order cancelled - Patient discharged Performed By: #### L 100.0100, L500.2500 ####[facility] [address] [place], [address] CREAT,SERUM Normal 0.70-1.20 [facility] Comment on above: Result Comment: Canc elled via OM: Order cancelled - Patient discharged Performed By: #### L 100.0100, L500.2500 ####[facility] [address] [place], [address] eGFR Normal >60 [facility] Comment on above: Result Comment: Canc elled via OM: Order cancelled - Patient discharged Performed By: #### L 100.0100, L500.2500 ####[facility] [address] [place], [address] GAP Normal 5-15 [facility] Comment on above: Result Comment: Canc elled via OM: Order cancelled - Patient discharged Performed By: #### L 100.0100, L500.2500 ####[facility] [address] [place], [address] GLU Normal 70-99 [facility] Comment on above: Result Comment: Canc elled via OM: Order cancelled - Patient discharged Performed By: #### L 100.0100, L500.2500 ####[facility] [address] [place], [address] Potassium Normal 3.3-5.1 [facility] Comment on above: Result Comment: Canc elled via OM: Order cancelled - Patient discharged Performed By: #### L 100.0100, L500.2500 ####[facility] [address] [place], [address] Basic Metabolic Profile (BMP) Normal 133-145 [facility] Comment on above: Result Comment: Canc elled via OM: Order cancelled - Patient discharged Performed By: #### L 100.0100, L500.2500 ####[facility] [address] [place], [address] CBC W/Diff, Automatedon 06-0 -2024 Absolute Neut Normal 2.0-7.7 [facility] Comment on above: Result Comment: Canc elled via OM: Order cancelled - Patient discharged Performed By: #### L 100.0100, L500.2500 ####[facility] [address] [place], [address] HCT Normal 37-47 [facility] Comment on above: Result Comment: Canc elled via OM: Order cancelled - Patient discharged Performed By: #### L 100.0100, L500.2500 ####[facility] [address] [place], [address] HGB Normal 12.0-15.0 [facility] Comment on above: Result Comment: Canc elled via OM: Order cancelled - Patient discharged Performed By: #### L 100.0100, L500.2500 ####[facility] [address] [place], [address] MCH Normal 27.0-32.0 [facility] Comment on above: Result Comment: Canc elled via OM: Order cancelled - Patient discharged Performed By: #### L 100.0100, L500.2500 ####[facility] [address] [place], [address] MCHC Normal 32-36 [facility] Comment on above: Result Comment: Canc elled via OM: Order cancelled - Patient discharged Performed By: #### L 100.0100, L500.2500 ####[facility] [address] [place], [address] MCV Normal 81-99 [facility] Comment on above: Result Comment: Canc elled via OM: Order cancelled - Patient discharged Performed By: #### L 100.0100, L500.2500 ####[facility] [address] [place], [address] NEUT% Normal 47-70 [facility] Comment on above: Result Comment: Canc elled via OM: Order cancelled - Patient discharged Performed By: #### L 100.0100, L500.2500 ####[facility] [address] [place], [address] PLT Normal 150-450 [facility] Comment on above: Result Comment: Canc elled via OM: Order cancelled - Patient discharged Performed By: #### L 100.0100, L500.2500 ####[facility] [address] [place], [address] RBC Normal 4.2-5.4 [facility] Comment on above: Result Comment: Canc elled via OM: Order cancelled - Patient discharged Performed By: #### L 100.0100, L500.2500 ####[facility] [address] [place], [address] RDW CV Normal 11.6-14.6 [facility] Comment on above: Result Comment: Canc elled via OM: Order cancelled - Patient discharged Performed By: #### L 100.0100, L500.2500 ####[facility] [address] [place], [address] RDW SD Normal 35.1-43.9 [facility] Comment on above: Result Comment: Canc elled via OM: Order cancelled - Patient discharged Performed By: #### L 100.0100, L500.2500 ####[facility] [address] [place], [address] WBC Normal 4.4-11.0 [facility] Comment on above: Result Comment: Canc elled via OM: Order cancelled - Patient discharged Performed By: #### L 100.0100, L500.2500 ####[facility] [address] [place], [address] Basic Metabolic Profile (BMP )on 01-28-2025 BUN Normal 4-19 [facility] Comment on above: Result Comment: Canc elled via OM: Order cancelled - Patient discharged Performed By: #### L 500.2500, L100.0100 ####[facility] [address] [place], [address] BUN/CRE Normal 10-20 [facility] Comment on above: Result Comment: Canc elled via OM: Order cancelled - Patient discharged Performed By: #### L 500.2500, L100.0100 ####[facility] [address] [place], [address] Calcium Normal 7.6-11.0 [facility] Comment on above: Result Comment: Canc elled via OM: Order cancelled - Patient discharged Performed By: #### L 500.2500, L100.0100 ####[facility] [address] [place], [address] CL Normal 98-108 [facility] Comment on above: Result Comment: Canc elled via OM: Order cancelled - Patient discharged Performed By: #### L 500.2500, L100.0100 ####[facility] [address] [place], [address] CO2 Normal 21.0-32.0 [facility] Comment on above: Result Comment: Canc elled via OM: Order cancelled - Patient discharged Performed By: #### L 500.2500, L100.0100 ####[facility] [address] [place], [address] CREAT,SERUM Normal 0.70-1.20 [facility] Comment on above: Result Comment: Canc elled via OM: Order cancelled - Patient discharged Performed By: #### L 500.2500, L100.0100 ####[facility] [address] [place], [address] eGFR Normal >60 [facility] Comment on above: Result Comment: Canc elled via OM: Order cancelled - Patient discharged Performed By: #### L 500.2500, L100.0100 ####[facility] [address] [place], [address] GAP Normal 5-15 [facility] Comment on above: Result Comment: Canc elled via OM: Order cancelled - Patient discharged Performed By: #### L 500.2500, L100.0100 ####[facility] [address] [place], [address] GLU Normal 70-99 [facility] Comment on above: Result Comment: Canc elled via OM: Order cancelled - Patient discharged Performed By: #### L 500.2500, L100.0100 ####[facility] [address] [place], [address] Potassium Normal 3.3-5.1 [facility] Comment on above: Result Comment: Canc elled via OM: Order cancelled - Patient discharged Performed By: #### L 500.2500, L100.0100 ####[facility] [address] [place], [address] Basic Metabolic Profile (BMP) Normal 133-145 [facility] Comment on above: Result Comment: Canc elled via OM: Order cancelled - Patient discharged Performed By: #### L 500.2500, L100.0100 ####[facility] [address] [place], [address] CBC W/Diff, Automatedon 05-3 Absolute Neut Normal 2.0-7.7 [facility] Comment on above: Result Comment: Canc elled via OM: Order cancelled - Patient discharged Performed By: #### L 500.2500, L100.0100 ####[facility] [address] [place], [address] HCT Normal 37-47 [facility] Comment on above: Result Comment: Canc elled via OM: Order cancelled - Patient discharged Performed By: #### L 500.2500, L100.0100 ####[facility] [address] [place], [address] HGB Normal 12.0-15.0 [facility] Comment on above: Result Comment: Canc elled via OM: Order cancelled - Patient discharged Performed By: #### L 500.2500, L100.0100 ####[facility] [address] [place], [address] MCH Normal 27.0-32.0 [facility] Comment on above: Result Comment: Canc elled via OM: Order cancelled - Patient discharged Performed By: #### L 500.2500, L100.0100 ####[facility] [address] [place], [address] MCHC Normal 32-36 [facility] Comment on above: Result Comment: Canc elled via OM: Order cancelled - Patient discharged Performed By: #### L 500.2500, L100.0100 ####[facility] [address] [place], [address] MCV Normal 81-99 [facility] Comment on above: Result Comment: Canc elled via OM: Order cancelled - Patient discharged Performed By: #### L 500.2500, L100.0100 ####[facility] [address] [place], [address] NEUT% Normal 47-70 [facility] Comment on above: Result Comment: Canc elled via OM: Order cancelled - Patient discharged Performed By: #### L 500.2500, L100.0100 ####[facility] [address] [place], [address] PLT Normal 150-450 [facility] Comment on above: Result Comment: Canc elled via OM: Order cancelled - Patient discharged Performed By: #### L 500.2500, L100.0100 ####[facility] [address] [place], [address] RBC Normal 4.2-5.4 [facility] Comment on above: Result Comment: Canc elled via OM: Order cancelled - Patient discharged Performed By: #### L 500.2500, L100.0100 ####[facility] [address] [place], [address] RDW CV Normal 11.6-14.6 [facility] Comment on above: Result Comment: Canc elled via OM: Order cancelled - Patient discharged Performed By: #### L 500.2500, L100.0100 ####[facility] [address] [place], [address] RDW SD Normal 35.1-43.9 [facility] Comment on above: Result Comment: Canc elled via OM: Order cancelled - Patient discharged Performed By: #### L 500.2500, L100.0100 ####[facility] [address] [place], [address] WBC Normal 4.4-11.0 [facility] Comment on above: Result Comment: Canc elled via OM: Order cancelled - Patient discharged Performed By: #### L 500.2500, L100.0100 ####[facility] [address] [place], [address] Basic Metabolic Profile (BMP )on 01-27-2025 BUN Normal 4-19 [facility] Comment on above: Result Comment: Canc elled via OM: Order cancelled - Patient discharged Performed By: #### L 500.2500, L100.0100 ####[facility] [address] [place], [address] BUN/CRE Normal 10-20 [facility] Comment on above: Result Comment: Canc elled via OM: Order cancelled - Patient discharged Performed By: #### L 500.2500, L100.0100 ####[facility] [address] [place], [address] Calcium Normal 7.6-11.0 [facility] Comment on above: Result Comment: Canc elled via OM: Order cancelled - Patient discharged Performed By: #### L 500.2500, L100.0100 ####[facility] [address] [place], [address] CL Normal 98-108 [facility] Comment on above: Result Comment: Canc elled via OM: Order cancelled - Patient discharged Performed By: #### L 500.2500, L100.0100 ####[facility] [address] [place], [address] CO2 Normal 21.0-32.0 [facility] Comment on above: Result Comment: Canc elled via OM: Order cancelled - Patient discharged Performed By: #### L 500.2500, L100.0100 ####[facility] [address] [place], [address] CREAT,SERUM Normal 0.70-1.20 [facility] Comment on above: Result Comment: Canc elled via OM: Order cancelled - Patient discharged Performed By: #### L 500.2500, L100.0100 ####[facility] [address] [place], [address] eGFR Normal >60 [facility] Comment on above: Result Comment: Canc elled via OM: Order cancelled - Patient discharged Performed By: #### L 500.2500, L100.0100 ####[facility] [address] [place], [address] GAP Normal 5-15 [facility] Comment on above: Result Comment: Canc elled via OM: Order cancelled - Patient discharged Performed By: #### L 500.2500, L100.0100 ####[facility] [address] [place], [address] GLU Normal 70-99 [facility] Comment on above: Result Comment: Canc elled via OM: Order cancelled - Patient discharged Performed By: #### L 500.2500, L100.0100 ####[facility] [address] [place], [address] Potassium Normal 3.3-5.1 [facility] Comment on above: Result Comment: Canc elled via OM: Order cancelled - Patient discharged Performed By: #### L 500.2500, L100.0100 ####[facility] [address] [place], [address] Basic Metabolic Profile (BMP) Normal 133-145 [facility] Comment on above: Result Comment: Canc elled via OM: Order cancelled - Patient discharged Performed By: #### L 500.2500, L100.0100 ####[facility] [address] [place], [address] CBC W/Diff, Automatedon 05-3 0-2024 Absolute Neut Normal 2.0-7.7 [facility] Comment on above: Result Comment: Canc elled via OM: Order cancelled - Patient discharged Performed By: #### L 500.2500, L100.0100 ####[facility] [address] [place], [address] HCT Normal 37-47 [facility] Comment on above: Result Comment: Canc elled via OM: Order cancelled - Patient discharged Performed By: #### L 500.2500, L100.0100 ####[facility] [address] [place], [address] HGB Normal 12.0-15.0 [facility] Comment on above: Result Comment: Canc elled via OM: Order cancelled - Patient discharged Performed By: #### L 500.2500, L100.0100 ####[facility] [address] [place], [address] MCH Normal 27.0-32.0 [facility] Comment on above: Result Comment: Canc elled via OM: Order cancelled - Patient discharged Performed By: #### L 500.2500, L100.0100 ####[facility] [address] [place], [address] MCHC Normal 32-36 [facility] Comment on above: Result Comment: Canc elled via OM: Order cancelled - Patient discharged Performed By: #### L 500.2500, L100.0100 ####[facility] [address] [place], [address] MCV Normal 81-99 [facility] Comment on above: Result Comment: Canc elled via OM: Order cancelled - Patient discharged Performed By: #### L 500.2500, L100.0100 ####[facility] [address] [place], [address] NEUT% Normal 47-70 [facility] Comment on above: Result Comment: Canc elled via OM: Order cancelled - Patient discharged Performed By: #### L 500.2500, L100.0100 ####[facility] [address] [place], [address] PLT Normal 150-450 [facility] Comment on above: Result Comment: Canc elled via OM: Order cancelled - Patient discharged Performed By: #### L 500.2500, L100.0100 ####[facility] [address] [place], [address] RBC Normal 4.2-5.4 [facility] Comment on above: Result Comment: Canc elled via OM: Order cancelled - Patient discharged Performed By: #### L 500.2500, L100.0100 ####[facility] [address] [place], [address] RDW CV Normal 11.6-14.6 [facility] Comment on above: Result Comment: Canc elled via OM: Order cancelled - Patient discharged Performed By: #### L 500.2500, L100.0100 ####[facility] [address] [place], [address] RDW SD Normal 35.1-43.9 [facility] Comment on above: Result Comment: Canc elled via OM: Order cancelled - Patient discharged Performed By: #### L 500.2500, L100.0100 ####[facility] [address] [place], [address] WBC Normal 4.4-11.0 [facility] Comment on above: Result Comment: Canc elled via OM: Order cancelled - Patient discharged Performed By: #### L 500.2500, L100.0100 ####[facility] [address] [place], [address] Absolute lymphocyte countOrd ered By: Jg Bryan on 01-26-2025 Lymphocytes Auto (Unsp spec) [#/Vol] 2.24 10*3/uL 0.83-4.51 [facility] Anion gap in Serum or Plasma Ordered By: Jg Bryan on 01-26-2025 Anion gap [Moles/Vol] 10 mmol/L 5- [facility] Automated lymphocyte count a s percentage of total leukocytesOrdered By: Jg Bryan on 01-26-2025 Lymphocytes/100 WBC Auto (Unsp spec) 25.1 % - [facility] BUN/creatinine ratioOrdered By: Jg Bryan on 01-26-2025 Urea nitrogen/Creatinine [Mass ratio] 30.2 mg/mg High 10- [facility] Basic Metabolic Profile (BMP )on 01-26-2025 BUN Normal 4-19 [facility] Comment on above: Result Comment: Canc elled via OM: Order cancelled - Patient discharged Performed By: #### L 500.2500, L100.0100 ####[facility] [address] [place], [address] BUN/CRE Normal 10- [facility] Comment on above: Result Comment: Canc elled via OM: Order cancelled - Patient discharged Performed By: #### L 500.2500, L100.0100 ####[facility] [address] [place], [address] Calcium Normal 7.6-11.0 [facility] Comment on above: Result Comment: Canc elled via OM: Order cancelled - Patient discharged Performed By: #### L 500.2500, L100.0100 ####[facility] [address] [place], [address] CL Normal 98-108 [facility] Comment on above: Result Comment: Canc elled via OM: Order cancelled - Patient discharged Performed By: #### L 500.2500, L100.0100 ####[facility] [address] [place], [address] CO2 Normal 21.0-32.0 [facility] Comment on above: Result Comment: Canc elled via OM: Order cancelled - Patient discharged Performed By: #### L 500.2500, L100.0100 ####[facility] [address] [place], [address] CREAT,SERUM Normal 0.70-1.20 [facility] Comment on above: Result Comment: Canc elled via OM: Order cancelled - Patient discharged Performed By: #### L 500.2500, L100.0100 ####[facility] [address] [place], [address] eGFR Normal >60 [facility] Comment on above: Result Comment: Canc elled via OM: Order cancelled - Patient discharged Performed By: #### L 500.2500, L100.0100 ####[facility] [address] [place], [address] GAP Normal 5-15 [facility] Comment on above: Result Comment: Canc elled via OM: Order cancelled - Patient discharged Performed By: #### L 500.2500, L100.0100 ####[facility] [address] [place], [address] GLU Normal 70-99 [facility] Comment on above: Result Comment: Canc elled via OM: Order cancelled - Patient discharged Performed By: #### L 500.2500, L100.0100 ####[facility] [address] [place], [address] Potassium Normal 3.3-5.1 [facility] Comment on above: Result Comment: Canc elled via OM: Order cancelled - Patient discharged Performed By: #### L 500.2500, L100.0100 ####[facility] [address] [place], [address] Basic Metabolic Profile (BMP) Normal 133-145 [facility] Comment on above: Result Comment: Canc elled via OM: Order cancelled - Patient discharged Performed By: #### L 500.2500, L100.0100 ####[facility] [address] [place], [address] BUN/CRE 30.2 RATIO High 10-20 [facility] Comment on above: Performed By: #### L 501.5200, L503.7505, L500.2500, L100.0100 ####[facility] [address] [place], [address] Calcium [Mass/Vol] 10.2 mg/dL Normal 7.6-11.0 [facility] Comment on above: Performed By: #### L 501.5200, L503.7505, L500.2500, L100.0100 ####[facility] [address] [place], [address] Chloride [Moles/Vol] 104 mmol/L Normal 98-108 [facility] Comment on above: Performed By: #### L 501.5200, L503.7505, L500.2500, L100.0100 ####[facility] [address] [place], [address] CO2 [Moles/Vol] 27.1 mmol/L Normal 21.0-32.0 [facility] Comment on above: Performed By: #### L 501.5200, L503.7505, L500.2500, L100.0100 ####[facility] [address] [place], [address] Creatinine [Mass/Vol] 1.16 mg/dL Normal 0.70-1.20 [facility] Comment on above: Performed By: #### L 501.5200, L503.7505, L500.2500, L100.0100 ####[facility] [address] [place], [address] ECRCL 38.24 ml/min Low 50-250 [facility] Comment on above: Performed By: #### L 501.5200, L503.7505, L500.2500, L100.0100 ####[facility] [address] [place], [address] GAP 10 Normal 5-15 [facility] Comment on above: Performed By: #### L 501.5200, L503.7505, L500.2500, L100.0100 ####[facility] [address] [place], [address] GFR/1.73 sq M.predicted among non-blacks MDRD (S/P/Bld) [Vol rate/Area] 47 mL/min/{1.73_m2} Low >60 [facility] Comment on above: Result Comment: mL/m in/1.73m2 CKD-EPI Creatinine Equation (2020) Performed By: #### L 501.5200, L503.7505, L500.2500, L100.0100 ####[facility] [address] [place], [address] Glucose [Mass/Vol] 211 mg/dL High 70-99 [facility] Comment on above: Performed By: #### L 501.5200, L503.7505, L500.2500, L100.0100 ####[facility] [address] [place], [address] Potassium [Moles/Vol] 4.1 mmol/L Normal 3.3-5.1 [facility] Comment on above: Performed By: #### L 501.5200, L503.7505, L500.2500, L100.0100 ####[facility] [address] [place], [address] Sodium [Moles/Vol] 141 mmol/L Normal 133-145 [facility] Comment on above: Performed By: #### L 501.5200, L503.7505, L500.2500, L100.0100 ####[facility] [address] [place], [address] Urea nitrogen [Mass/Vol] 35 mg/dL High 4-19 [facility] Comment on above: Performed By: #### L 501.5200, L503.7505, L500.2500, L100.0100 ####[facility] [address] [place], [address] Basophil percentageOrdered B y: Jg Bryan on 01-26-2025 Basophils/100 WBC (Bld) 0.1 % 0-1 [facility] CBC W/Diff, Automatedon 12-30 Absolute Neut Normal 2.0-7.7 [facility] Comment on above: Result Comment: Canc elled via OM: Order cancelled - Patient discharged Performed By: #### L 500.2500, L100.0100 ####[facility] [address] [place], [address] HCT Normal 37-47 [facility] Comment on above: Result Comment: Canc elled via OM: Order cancelled - Patient discharged Performed By: #### L 500.2500, L100.0100 ####[facility] [address] [place], [address] HGB Normal 12.0-15.0 [facility] Comment on above: Result Comment: Canc elled via OM: Order cancelled - Patient discharged Performed By: #### L 500.2500, L100.0100 ####[facility] [address] [place], [address] MCH Normal 27.0-32.0 [facility] Comment on above: Result Comment: Canc elled via OM: Order cancelled - Patient discharged Performed By: #### L 500.2500, L100.0100 ####[facility] [address] [place], [address] MCHC Normal 32-36 [facility] Comment on above: Result Comment: Canc elled via OM: Order cancelled - Patient discharged Performed By: #### L 500.2500, L100.0100 ####[facility] [address] [place], [address] MCV Normal 81-99 [facility] Comment on above: Result Comment: Canc elled via OM: Order cancelled - Patient discharged Performed By: #### L 500.2500, L100.0100 ####[facility] [address] [place], [address] NEUT% Normal 47-70 [facility] Comment on above: Result Comment: Canc elled via OM: Order cancelled - Patient discharged Performed By: #### L 500.2500, L100.0100 ####[facility] [address] [place], [address] PLT Normal 150-450 [facility] Comment on above: Result Comment: Canc elled via OM: Order cancelled - Patient discharged Performed By: #### L 500.2500, L100.0100 ####[facility] [address] [place], [address] RBC Normal 4.2-5.4 [facility] Comment on above: Result Comment: Canc elled via OM: Order cancelled - Patient discharged Performed By: #### L 500.2500, L100.0100 ####[facility] [address] [place], [address] RDW CV Normal 11.6-14.6 [facility] Comment on above: Result Comment: Canc elled via OM: Order cancelled - Patient discharged Performed By: #### L 500.2500, L100.0100 ####[facility] [address] [place], [address] RDW SD Normal 35.1-43.9 [facility] Comment on above: Result Comment: Canc elled via OM: Order cancelled - Patient discharged Performed By: #### L 500.2500, L100.0100 ####[facility] [address] [place], [address] WBC Normal 4.4-11.0 [facility] Comment on above: Result Comment: Canc elled via OM: Order cancelled - Patient discharged Performed By: #### L 500.2500, L100.0100 ####[facility] [address] [place], [address] Absolute Lymph 2.24 X10 3/uL Normal 0.83-4.51 [facility] Comment on above: Performed By: #### L 501.5200, L503.7505, L500.2500, L100.0100 ####[facility] [address] [place], [address] Absolute Neut 5.8 X10 3/uL Normal 2.0-7.7 [facility] Comment on above: Performed By: #### L 501.5200, L503.7505, L500.2500, L100.0100 ####[facility] [address] [place], [address] Basophils/100 WBC (Bld) 0.1 % Normal 0-1 [facility] Comment on above: Performed By: #### L 501.5200, L503.7505, L500.2500, L100.0100 ####[facility] [address] [place], [address] Eosinophils/100 WBC (Bld) 2.8 % Normal 0-5 [facility] Comment on above: Performed By: #### L 501.5200, L503.7505, L500.2500, L100.0100 ####[facility] [address] [place], [address] Erythrocyte distribution width (RBC) [Ratio] 15.9 % High 11.6-14.6 [facility] Comment on above: Performed By: #### L 501.5200, L503.7505, L500.2500, L100.0100 ####[facility] [address] [place], [address] Hematocrit (Bld) [Volume fraction] 37.9 % Normal 37-47 [facility] Comment on above: Performed By: #### L 501.5200, L503.7505, L500.2500, L100.0100 ####[facility] [address] [place], [address] Hemoglobin (Bld) [Mass/Vol] 11.8 g/dL Low 12.0-15.0 [facility] Comment on above: Performed By: #### L 501.5200, L503.7505, L500.2500, L100.0100 ####[facility] [address] [place], [address] IG% 0.300 Normal 0.0-0.9 [facility] Comment on above: Result Comment: IG% - Immature Granulocytes (promyelocytes, myelocytes andmetamyelocytes) > 1% indicates that a LEFT SHIFT is Present. Performed By: #### L 501.5200, L503.7505, L500.2500, L100.0100 ####[facility] [address] [place], [address] Lymphocytes/100 WBC (Bld) 25.1 % Normal 19-41 [facility] Comment on above: Performed By: #### L 501.5200, L503.7505, L500.2500, L100.0100 ####[facility] [address] [place], [address] MCH (RBC) [Entitic mass] 27.3 pg Normal 27.0-32.0 [facility] Comment on above: Performed By: #### L 501.5200, L503.7505, L500.2500, L100.0100 ####[facility] [address] [place], [address] MCHC (RBC) [Mass/Vol] 31.1 g/dL Low 32-36 [facility] Comment on above: Performed By: #### L 501.5200, L503.7505, L500.2500, L100.0100 ####[facility] [address] [place], [address] MCV (RBC) [Entitic vol] 87.5 fL Normal 81-99 [facility] Comment on above: Performed By: #### L 501.5200, L503.7505, L500.2500, L100.0100 ####[facility] [address] [place], [address] Monocytes/100 WBC (Bld) 6.7 % Normal 0-10 [facility] Comment on above: Performed By: #### L 501.5200, L503.7505, L500.2500, L100.0100 ####[facility] [address] [place], [address] Neutrophils/100 WBC (Bld) 65.0 % Normal 47-70 [facility] Comment on above: Performed By: #### L 501.5200, L503.7505, L500.2500, L100.0100 ####[facility] [address] [place], [address] Nucleated RBC (Bld) [#/Vol] 0 10*3/uL Normal 0-5 [facility] Comment on above: Performed By: #### L 501.5200, L503.7505, L500.2500, L100.0100 ####[facility] [address] [place], [address] Platelet mean volume (Bld) [Entitic vol] 10.8 fL Normal 6.2-12.0 [facility] Comment on above: Performed By: #### L 501.5200, L503.7505, L500.2500, L100.0100 ####[facility] [address] [place], [address] Platelets (Bld) [#/Vol] 247 10*3/uL Normal 150-450 [facility] Comment on above: Performed By: #### L 501.5200, L503.7505, L500.2500, L100.0100 ####[facility] [address] [place], [address] RBC (Bld) [#/Vol] 4.33 10*6/uL Normal 4.2-5.4 [facility] Comment on above: Performed By: #### L 501.5200, L503.7505, L500.2500, L100.0100 ####[facility] [address] [place], [address] RDW SD 51.0 fl High 35.1-43.9 [facility] Comment on above: Performed By: #### L 501.5200, L503.7505, L500.2500, L100.0100 ####[facility] [address] [place], [address] WBC (Bld) [#/Vol] 8.9 10*3/uL Normal 4.4-11.0 [facility] Comment on above: Performed By: #### L 501.5200, L503.7505, L500.2500, L100.0100 ####[facility] [address] [place], [address] Carbon dioxide, total [Moles /volume] in Central venous bloodOrdered By: Jg Bryan on 01-26-2025 CO2 [Moles/Vol] 27.1 mmol/L 21.0-32.0 [facility] Chest PA and Lateralon 01-26 Chest PA and Lateral Normal [facility] Chloride assayOrdered By: Matilde Bryan on 01-26-2025 Chloride [Moles/Vol] 104 mmol/L 98-108 [facility] Emergency Department Summary on 01-26-2025 Emergency Department Summary Normal [facility] Eosinophil percentageOrdered By: Jg Bryan on 01-26-2025 Eosinophils/100 WBC (Bld) 2.8 % 0-5 [facility] Erythrocyte distribution wid th ratioOrdered By: Jg Bryan on 01-26-2025 Erythrocyte distribution width (RBC) [Ratio] 15.9 % High 11.6-14.6 [facility] Erythrocyte distribution wid th standard deviationOrdered By: Jg Bryan on 01-26-2025 Erythrocyte distribution width (RBC) [Ratio] 51.0 fl High 35.1-43.9 [facility] Glomerular filtration rate ( GFR) estimation/1.73 sq m using serum, plasma, or whole bOrdered By: Jg Bryan on 01-26-2025 GFR/1.73 sq M.predicted among non-blacks MDRD (S/P/Bld) [Vol rate/Area] 47 mL/min/{1.73_m2} Low >60 [facility] Hematocrit Auto (Bld) [Volum e fraction]Ordered By: Jg Bryan on 01-26-2025 Hematocrit (Bld) [Volume fraction] 37.9 % 37-47 [facility] Hemoglobin measurementOrdere d By: Jg Bryan on 01-26-2025 Hemoglobin (Bld) [Mass/Vol] 11.8 g/dL Low 12.0-15.0 [facility] Immature granulocytes/100 WB C Auto (Bld)Ordered By: Jg Bryan on 01-26-2025 Immature granulocytes/100 WBC (Bld) 0.300 % 0.0-0.9 [facility] L503.7505on 01-26-2025 Natriuretic peptide B (Bld) [Mass/Vol] 3334 pg/mL High <=1800 [facility] Comment on above: Result Comment: Hear t Failure Unlikely: < 300 pg/mLHeart Failure Likely< 50 Years: > 450 pg/mL50-75 Years: > 900 pg/mL>75 Years: > 1800 pg/mL Performed By: #### L 501.5200, L503.7505, L500.2500, L100.0100 ####[facility] [address] [place], [address] MCV (mean corpuscular volume ) determinationOrdered By: Jg Bryan on 01-26-2025 MCV (RBC) [Entitic vol] 87.5 fL 81-99 [facility] Magnesiumon 01-26-2025 Magnesium [Mass/Vol] 2.7 mg/dL High 1.5-2.2 [facility] Comment on above: Performed By: #### L 501.5200, L503.7505, L500.2500, L100.0100 ####[facility] [address] [place], [address] Magnesium measurement (mass/ volume)Ordered By: Jg Bryan on 01-26-2025 Magnesium (Unsp spec) [Mass/Vol] 2.7 mg/dL High 1.5-2.2 [facility] Mean corpuscular hemoglobin (MCH) determinationOrdered By: Jg Bryan on 01-26-2025 MCH (RBC) [Entitic mass] 27.3 pg 27.0-32.0 [facility] Monocyte percentageOrdered B y: Jg Bryan on 01-26-2025 Monocytes/100 WBC (Bld) 6.7 % 0-10 [facility] Natriuretic peptide.B prohor hayley N-Terminal [Mass/volume] in Serum or PlasmaOrdered By: Jg Bryan on 01-26-2025 Natriuretic peptide.B prohormone N-Terminal [Mass/Vol] 3334 pg/mL High <1800 [facility] Neutrophil percentageOrdered By: Jg Bryan on 01-26-2025 Neutrophils/100 WBC (Bld) 65.0 % 47-70 [facility] Platelet countOrdered By: Matilde Bryan on 01-26-2025 Platelets (Bld) [#/Vol] 247 10*3/uL 150-450 [facility] Potassium measurement (mass/ volume)Ordered By: Jg Bryan on 01-26-2025 Potassium (Unsp spec) [Mass/Vol] 4.1 mmol/L 3.3-5.1 [facility] RBC Auto (Bld) [#/Vol]Ordere d By: Jg Bryan on 01-26-2025 RBC (Bld) [#/Vol] 4.33 10*6/uL 4.2-5.4 [facility] Serum creatinine measurement (mass/volume)Ordered By: Jg Bryan on 01-26-2025 Creatinine [Mass/Vol] 1.16 mg/dL 0.70-1.20 [facility] Serum glucose measurement (m ass/volume)Ordered By: Jg Bryan on 01-26-2025 Glucose [Mass/Vol] 211 mg/dL High 70-99 [facility] Serum or plasma calcium melanie urement (mass/volume)Ordered By: Jg Bryan on 01-26-2025 Calcium [Mass/Vol] 10.2 mg/dL 7.6-11.0 [facility] Serum or plasma urea nitroge n measurement (mass/volume)Ordered By: Jg Bryan on 01-26-2025 Urea nitrogen [Mass/Vol] 35 mg/dL High 4-19 [facility] Sodium levelOrdered By: Comse Bryan on 01-26-2025 Sodium [Moles/Vol] 141 mmol/L 133-145 [facility] White blood cell (WBC) count Ordered By: Jg Bryan on 01-26-2025 WBC (Bld) [#/Vol] 8.9 10*3/uL 4.4-11.0 [facility] Basic Metabolic Profile (BMP )on 01-25-2025 BUN Normal - [facility] Comment on above: Result Comment: Canc elled via OM: Order cancelled - Patient discharged Performed By: #### L 100.0100, L500.2500 ####[facility] [address] [place], [place], [address] BUN/CRE Normal 10- [facility] Comment on above: Result Comment: Canc elled via OM: Order cancelled - Patient discharged Performed By: #### L 100.0100, L500.2500 ####[facility] [address] [place], [address] Calcium Normal 7.6-11.0 [facility] Comment on above: Result Comment: Canc elled via OM: Order cancelled - Patient discharged Performed By: #### L 100.0100, L500.2500 ####[facility] [address] [place], [address] CL Normal 98-108 [facility] Comment on above: Result Comment: Canc elled via OM: Order cancelled - Patient discharged Performed By: #### L 100.0100, L500.2500 ####[facility] [address] [place], [address] CO2 Normal 21.0-32.0 [facility] Comment on above: Result Comment: Canc elled via OM: Order cancelled - Patient discharged Performed By: #### L 100.0100, L500.2500 ####[facility] [address] [place], [address] CREAT,SERUM Normal 0.70-1.20 [facility] Comment on above: Result Comment: Canc elled via OM: Order cancelled - Patient discharged Performed By: #### L 100.0100, L500.2500 ####[facility] [address] [place], [address] eGFR Normal >60 [facility] Comment on above: Result Comment: Canc elled via OM: Order cancelled - Patient discharged Performed By: #### L 100.0100, L500.2500 ####[facility] [address] [place], [address] GAP Normal 5-15 [facility] Comment on above: Result Comment: Canc elled via OM: Order cancelled - Patient discharged Performed By: #### L 100.0100, L500.2500 ####[facility] [address] [place], [address] GLU Normal 70-99 [facility] Comment on above: Result Comment: Canc elled via OM: Order cancelled - Patient discharged Performed By: #### L 100.0100, L500.2500 ####[facility] [address] [place], [address] Potassium Normal 3.3-5.1 [facility] Comment on above: Result Comment: Canc elled via OM: Order cancelled - Patient discharged Performed By: #### L 100.0100, L500.2500 ####[facility] [address] [place], [address] Basic Metabolic Profile (BMP) Normal 133-145 [facility] Comment on above: Result Comment: Canc elled via OM: Order cancelled - Patient discharged Performed By: #### L 100.0100, L500.2500 ####[facility] [address] [place], [address] CBC W/Diff, Automatedon 05-2 Absolute Neut Normal 2.0-7.7 [facility] Comment on above: Result Comment: Canc elled via OM: Order cancelled - Patient discharged Performed By: #### L 100.0100, L500.2500 ####[facility] [address] [place], [address] HCT Normal 37-47 [facility] Comment on above: Result Comment: Canc elled via OM: Order cancelled - Patient discharged Performed By: #### L 100.0100, L500.2500 ####[facility] [address] [place], [address] HGB Normal 12.0-15.0 [facility] Comment on above: Result Comment: Canc elled via OM: Order cancelled - Patient discharged Performed By: #### L 100.0100, L500.2500 ####[facility] [address] [place], [address] MCH Normal 27.0-32.0 [facility] Comment on above: Result Comment: Canc elled via OM: Order cancelled - Patient discharged Performed By: #### L 100.0100, L500.2500 ####[facility] [address] [place], [address] MCHC Normal 32-36 [facility] Comment on above: Result Comment: Canc elled via OM: Order cancelled - Patient discharged Performed By: #### L 100.0100, L500.2500 ####[facility] [address] [place], [address] MCV Normal 81-99 [facility] Comment on above: Result Comment: Canc elled via OM: Order cancelled - Patient discharged Performed By: #### L 100.0100, L500.2500 ####[facility] [address] [place], [address] NEUT% Normal 47-70 [facility] Comment on above: Result Comment: Canc elled via OM: Order cancelled - Patient discharged Performed By: #### L 100.0100, L500.2500 ####[facility] [address] [place], [address] PLT Normal 150-450 [facility] Comment on above: Result Comment: Canc elled via OM: Order cancelled - Patient discharged Performed By: #### L 100.0100, L500.2500 ####[facility] [address] [place], [address] RBC Normal 4.2-5.4 [facility] Comment on above: Result Comment: Canc elled via OM: Order cancelled - Patient discharged Performed By: #### L 100.0100, L500.2500 ####[facility] [address] [place], [address] RDW CV Normal 11.6-14.6 [facility] Comment on above: Result Comment: Canc elled via OM: Order cancelled - Patient discharged Performed By: #### L 100.0100, L500.2500 ####[facility] [address] [place], [address] RDW SD Normal 35.1-43.9 [facility] Comment on above: Result Comment: Canc elled via OM: Order cancelled - Patient discharged Performed By: #### L 100.0100, L500.2500 ####[facility] [address] [place], [address] WBC Normal 4.4-11.0 [facility] Comment on above: Result Comment: Canc elled via OM: Order cancelled - Patient discharged Performed By: #### L 100.0100, L500.2500 ####[facility] [address] [place], [address] Culture, Blood (WB)on 2024 CUB Blood cultures x2, from two different sites No growth in 5 days. Normal [facility] Comment on above: Performed By: #### M 200.1000 ####[facility] [address] [place], [address] Performed By: #### L 300.4310, L100.0100, L300.3900, L501.4021, L503.6005, L500.4050, M200.1000 ####[facility] [address] [place], [address] Performed By: #### M 200.1000, L503.6005 ####[facility] [address] [place], [address] Absolute lymphocyte countOrd ered By: Melba Hartmann on 01-24-2025 Lymphocytes Auto (Unsp spec) [#/Vol] 2.19 10*3/uL 0.83-4.51 [facility] Anion gap in Serum or Plasma Ordered By: Melba Hartmann on 01-24-2025 Anion gap [Moles/Vol] 12 mmol/L 5-15 [facility] Automated lymphocyte count a s percentage of total leukocytesOrdered By: Melba Hartmann on 01-24-2025 Lymphocytes/100 WBC Auto (Unsp spec) 19.3 % - [facility] BUN/creatinine ratioOrdered By: Melba Mary Kate on 01-24-2025 Urea nitrogen/Creatinine [Mass ratio] 35.2 mg/mg High 06-19 [facility] Basic Metabolic Profile (BMP )on 01-24-2025 BUN/CRE 35.2 RATIO High 06-19 [facility] Comment on above: Performed By: #### L 500.2500, L100.0100 ####[facility] [address] [place], [address] Calcium [Mass/Vol] 10.1 mg/dL Normal 7.6-11.0 [facility] Comment on above: Performed By: #### L 500.2500, L100.0100 ####[facility] [address] [place], [address] Chloride [Moles/Vol] 102 mmol/L Normal 98-108 [facility] Comment on above: Performed By: #### L 500.2500, L100.0100 ####[facility] [address] [place], [address] CO2 [Moles/Vol] 23.7 mmol/L Normal 21.0-32.0 [facility] Comment on above: Performed By: #### L 500.2500, L100.0100 ####[facility] [address] [place], [address] Creatinine [Mass/Vol] 1.31 mg/dL High 0.70-1.20 [facility] Comment on above: Performed By: #### L 500.2500, L100.0100 ####[facility] [address] [place], [address] ECRCL 33.41 ml/min Low 50-250 [facility] Comment on above: Performed By: #### L 500.2500, L100.0100 ####[facility] [address] [place], [address] GAP 12 Normal 5-15 [facility] Comment on above: Performed By: #### L 500.2500, L100.0100 ####[facility] [address] [place], [address] GFR/1.73 sq M.predicted among non-blacks MDRD (S/P/Bld) [Vol rate/Area] 41 mL/min/{1.73_m2} Low >60 [facility] Comment on above: Result Comment: mL/m in/1.73m2 CKD-EPI Creatinine Equation (2020) Performed By: #### L 500.2500, L100.0100 ####[facility] [address] [place], [address] Glucose [Mass/Vol] 133 mg/dL High 70-99 [facility] Comment on above: Performed By: #### L 500.2500, L100.0100 ####[facility] [address] [place], [address] Potassium [Moles/Vol] 3.5 mmol/L Normal 3.3-5.1 [facility] Comment on above: Performed By: #### L 500.2500, L100.0100 ####[facility] [address] [place], [address] Sodium [Moles/Vol] 138 mmol/L Normal 133-145 [facility] Comment on above: Performed By: #### L 500.2500, L100.0100 ####[facility] [address] [place], [address] Urea nitrogen [Mass/Vol] 46 mg/dL High 4-19 [facility] Comment on above: Performed By: #### L 500.2500, L100.0100 ####[facility] [address] [place], [address] Basophil percentageOrdered B y: Melba Hartmann on 01-24-2025 Basophils/100 WBC (Bld) 0.2 % 0-1 [facility] Bedside Glucoseon 01-24-2025 FINGERSTICK GLU 167 mg/dL High 74-106 [facility] Comment on above: Result Comment: KATARINA GEMENT OF PATIENT CARE PER NURSING PROTOCOL Performed By: #### L 501.080 ####[facility] [address] [place], [address] FINGERSTICK GLU 143 mg/dL High 74-106 [facility] Comment on above: Result Comment: KATARINA GEMENT OF PATIENT CARE PER NURSING PROTOCOL Performed By: #### L 501.080 ####[facility] [address] [place], [address] CBC W/Diff, Automatedon 12-30 Absolute Lymph 2.19 X10 3/uL Normal 0.83-4.51 [facility] Comment on above: Performed By: #### L 500.2500, L100.0100 ####[facility] [address] [place], [address] Absolute Neut 8.2 X10 3/uL High 2.0-7.7 [facility] Comment on above: Performed By: #### L 500.2500, L100.0100 ####[facility] [address] [place], [address] Basophils/100 WBC (Bld) 0.2 % Normal 0-1 [facility] Comment on above: Performed By: #### L 500.2500, L100.0100 ####[facility] [address] [place], [address] Eosinophils/100 WBC (Bld) 0.2 % Normal 0-5 [facility] Comment on above: Performed By: #### L 500.2500, L100.0100 ####[facility] [address] [place], [address] Erythrocyte distribution width (RBC) [Ratio] 15.8 % High 11.6-14.6 [facility] Comment on above: Performed By: #### L 500.2500, L100.0100 ####[facility] [address] [place], [address] Hematocrit (Bld) [Volume fraction] 40.7 % Normal 37-47 [facility] Comment on above: Performed By: #### L 500.2500, L100.0100 ####[facility] [address] [place], [address] Hemoglobin (Bld) [Mass/Vol] 12.7 g/dL Normal 12.0-15.0 [facility] Comment on above: Performed By: #### L 500.2500, L100.0100 ####[facility] [address] [place], [address] IG% 0.400 Normal 0.0-0.9 [facility] Comment on above: Result Comment: IG% - Immature Granulocytes (promyelocytes, myelocytes andmetamyelocytes) > 1% indicates that a LEFT SHIFT is Present. Performed By: #### L 500.2500, L100.0100 ####[facility] [address] [place], [address] Lymphocytes/100 WBC (Bld) 19.3 % Normal 19-41 [facility] Comment on above: Performed By: #### L 500.2500, L100.0100 ####[facility] [address] [place], [address] MCH (RBC) [Entitic mass] 27.4 pg Normal 27.0-32.0 [facility] Comment on above: Performed By: #### L 500.2500, L100.0100 ####[facility] [address] [place], [address] MCHC (RBC) [Mass/Vol] 31.2 g/dL Low 32-36 [facility] Comment on above: Performed By: #### L 500.2500, L100.0100 ####[facility] [address] [place], [address] MCV (RBC) [Entitic vol] 87.7 fL Normal 81-99 [facility] Comment on above: Performed By: #### L 500.2500, L100.0100 ####[facility] [address] [place], [address] Monocytes/100 WBC (Bld) 7.4 % Normal 0-10 [facility] Comment on above: Performed By: #### L 500.2500, L100.0100 ####[facility] [address] [place], [address] Neutrophils/100 WBC (Bld) 72.5 % High 47-70 [facility] Comment on above: Performed By: #### L 500.2500, L100.0100 ####[facility] [address] [place], [address] Nucleated RBC (Bld) [#/Vol] 0 10*3/uL Normal 0-5 [facility] Comment on above: Performed By: #### L 500.2500, L100.0100 ####[facility] [address] [place], [address] Platelet mean volume (Bld) [Entitic vol] 10.9 fL Normal 6.2-12.0 [facility] Comment on above: Performed By: #### L 500.2500, L100.0100 ####[facility] [address] [place], [address] Platelets (Bld) [#/Vol] 297 10*3/uL Normal 150-450 [facility] Comment on above: Performed By: #### L 500.2500, L100.0100 ####[facility] [address] [place], [address] RBC (Bld) [#/Vol] 4.64 10*6/uL Normal 4.2-5.4 [facility] Comment on above: Performed By: #### L 500.2500, L100.0100 ####[facility] [address] [place], [address] RDW SD 50.9 fl High 35.1-43.9 [facility] Comment on above: Performed By: #### L 500.2500, L100.0100 ####[facility] [address] [place], [address] WBC (Bld) [#/Vol] 11.3 10*3/uL High 4.4-11.0 [facility] Comment on above: Performed By: #### L 500.2500, L100.0100 ####[facility] [address] [place], [address] Carbon dioxide, total [Moles /volume] in Central venous bloodOrdered By: Melba Hartmann on 01-24-2025 CO2 [Moles/Vol] 23.7 mmol/L 21.0-32.0 [facility] Chloride assayOrdered By: Marifer Hartmann on 01-24-2025 Chloride [Moles/Vol] 102 mmol/L 98-108 [facility] Discharge Instructionon 12-[address] [facility] Electrocardiogram reportOrde red By: Marcelina Soto on 01-24-2025 EKG study [facility] Work Phone: [phone] Eosinophil percentageOrdered By: Melba Hartmann on 01-24-2025 Eosinophils/100 WBC (Bld) 0.2 % 0-5 [facility] Erythrocyte distribution wid th ratioOrdered By: Melba Hartmann on 01-24-2025 Erythrocyte distribution width (RBC) [Ratio] 15.8 % High 11.6-14.6 [facility] Erythrocyte distribution wid th standard deviationOrdered By: Melba Hartmann on 01-24-2025 Erythrocyte distribution width (RBC) [Ratio] 50.9 fl High 35.1-43.9 [facility] Glomerular filtration rate ( GFR) estimation/1.73 sq m using serum, plasma, or whole bOrdered By: Melba Hartmann on 01-24-2025 GFR/1.73 sq M.predicted among non-blacks MDRD (S/P/Bld) [Vol rate/Area] 41 mL/min/{1.73_m2} Low >60 [facility] Glucose measurement at [facility] deOrdered By: Melba Hartmann on 01-24-2025 Glucose [Mass/Vol] 167 mg/dL High 74-106 [facility] Hematocrit Auto (Bld) [Volum e fraction]Ordered By: Melba Hartmann on 01-24-2025 Hematocrit (Bld) [Volume fraction] 40.7 % 37-47 [facility] Hemoglobin measurementOrdere d By: Melba Hartmann on 01-24-2025 Hemoglobin (Bld) [Mass/Vol] 12.7 g/dL 12.0-15.0 [facility] Immature granulocytes/100 WB C Auto (Bld)Ordered By: Melba Hartmann 01-24-2025 Immature granulocytes/100 WBC (Bld) 0.400 % 0.0-0.9 [facility] MCV (mean corpuscular volume ) determinationOrdered By: Melba Hartmann 01-24-2025 MCV (RBC) [Entitic vol] 87.7 fL 81-99 [facility] Mean corpuscular hemoglobin (MCH) determinationOrdered By: Melba Hartmann on 01-24-2025 MCH (RBC) [Entitic mass] 27.4 pg 27.0-32.0 [facility] Monocyte percentageOrdered B y: Melba Hartmann on 01-24-2025 Monocytes/100 WBC (Bld) 7.4 % 0-10 [facility] Neutrophil percentageOrdered By: Melba Hartmann on 01-24-2025 Neutrophils/100 WBC (Bld) 72.5 % High 47-70 [facility] Platelet countOrdered By: Marifer Hartmann on 01-24-2025 Platelets (Bld) [#/Vol] 297 10*3/uL 150-450 [facility] Potassium measurement (mass/ volume)Ordered By: Melba Hartmann on 01-24-2025 Potassium (Unsp spec) [Mass/Vol] 3.5 mmol/L 3.3-5.1 [facility] RBC Auto (Bld) [#/Vol]Ordere d By: Melba Hartmann on 01-24-2025 RBC (Bld) [#/Vol] 4.64 10*6/uL 4.2-5.4 [facility] Serum creatinine measurement (mass/volume)Ordered By: Melba Hartmann on 01-24-2025 Creatinine [Mass/Vol] 1.31 mg/dL High 0.70-1.20 [facility] Serum glucose measurement (m ass/volume)Ordered By: Melba Hartmann on 01-24-2025 Glucose [Mass/Vol] 133 mg/dL High 70-99 [facility] Serum or plasma calcium melanie urement (mass/volume)Ordered By: Melba Hartmann on 01-24-2025 Calcium [Mass/Vol] 10.1 mg/dL 7.6-11.0 [facility] Serum or plasma urea nitroge n measurement (mass/volume)Ordered By: Melba Hartmann on 01-24-2025 Urea nitrogen [Mass/Vol] 46 mg/dL High 4-19 [facility] Sodium levelOrdered By: Melba Hartmann on 01-24-2025 Sodium [Moles/Vol] 138 mmol/L 133-145 [facility] White blood cell (WBC) count Ordered By: Melba Hartmann on 01-24-2025 WBC (Bld) [#/Vol] 11.3 10*3/uL High 4.4-11.0 [facility] Basic Metabolic Profile (BMP )on 01-23-2025 BUN/CRE 33.0 RATIO High 10-20 [facility] Comment on above: Performed By: #### L 100.0100, L500.2500 ####[facility] [address] [place], [address] Calcium [Mass/Vol] 10.8 mg/dL Normal 7.6-11.0 [facility] Comment on above: Performed By: #### L 100.0100, L500.2500 ####[facility] [address] [place], [address] Chloride [Moles/Vol] 98 mmol/L Normal 98-108 [facility] Comment on above: Performed By: #### L 100.0100, L500.2500 ####[facility] [address] [place], [address] CO2 [Moles/Vol] 25.4 mmol/L Normal 21.0-32.0 [facility] Comment on above: Performed By: #### L 100.0100, L500.2500 ####[facility] [address] [place], [address] Creatinine [Mass/Vol] 1.32 mg/dL High 0.70-1.20 [facility] Comment on above: Performed By: #### L 100.0100, L500.2500 ####[facility] [address] [place], [address] ECRCL 32.84 ml/min Low 50-250 [facility] Comment on above: Performed By: #### L 100.0100, L500.2500 ####[facility] [address] [place], [address] GAP 12 Normal 5-15 [facility] Comment on above: Performed By: #### L 100.0100, L500.2500 ####[facility] [address] [place], [address] GFR/1.73 sq M.predicted among non-blacks MDRD (S/P/Bld) [Vol rate/Area] 41 mL/min/{1.73_m2} Low >60 [facility] Comment on above: Result Comment: mL/m in/1.73m2 CKD-EPI Creatinine Equation (2020) Performed By: #### L 100.0100, L500.2500 ####[facility] [address] [place], [address] Glucose [Mass/Vol] 200 mg/dL High 70-99 [facility] Comment on above: Performed By: #### L 100.0100, L500.2500 ####[facility] [address] [place], [address] Potassium [Moles/Vol] 5.2 mmol/L High 3.3-5.1 [facility] Comment on above: Result Comment: Hemo lysis present, Results??could be affected.?? Performed By: #### L 100.0100, L500.2500 ####[facility] [address] [place], [address] Sodium [Moles/Vol] 135 mmol/L Normal 133-145 [facility] Comment on above: Performed By: #### L 100.0100, L500.2500 ####[facility] [address] [place], [address] Urea nitrogen [Mass/Vol] 44 mg/dL High 4-19 [facility] Comment on above: Performed By: #### L 100.0100, L500.2500 ####[facility] [address] [place], [address] Bedside Glucoseon 01-23-2025 FINGERSTICK GLU 294 mg/dL High 74-106 [facility] Comment on above: Result Comment: KATARINA GEMENT OF PATIENT CARE PER NURSING PROTOCOL Performed By: #### L 501.080 ####[facility] [address] [place], [address] FINGERSTICK GLU 314 mg/dL High 74-106 [facility] Comment on above: Result Comment: KATARINA GEMENT OF PATIENT CARE PER NURSING PROTOCOL Performed By: #### L 501.080 ####[facility] [address] [place], [address] FINGERSTICK GLU 291 mg/dL High 74-106 [facility] Comment on above: Result Comment: KATARINA GEMENT OF PATIENT CARE PER NURSING PROTOCOL Performed By: #### L 501.080 ####[facility] [address] [place], [address] FINGERSTICK GLU 214 mg/dL High 74-106 [facility] Comment on above: Result Comment: KATARINA GEMENT OF PATIENT CARE PER NURSING PROTOCOL Performed By: #### L 501.080 ####[facility] [address] [place], [address] CBC W/Diff, Automatedon 05-2 Absolute Lymph 0.74 X10 3/uL Low 0.83-4.51 [facility] Comment on above: Performed By: #### L 100.0100, L500.2500 ####[facility] [address] [place], [address] Absolute Neut 10.9 X10 3/uL High 2.0-7.7 [facility] Comment on above: Performed By: #### L 100.0100, L500.2500 ####[facility] [address] [place], [address] Basophils/100 WBC (Bld) 0.1 % Normal 0-1 [facility] Comment on above: Performed By: #### L 100.0100, L500.2500 ####[facility] [address] [place], [address] Eosinophils/100 WBC (Bld) 0.0 % Normal 0-5 [facility] Comment on above: Performed By: #### L 100.0100, L500.2500 ####[facility] [address] [place], [address] Erythrocyte distribution width (RBC) [Ratio] 15.8 % High 11.6-14.6 [facility] Comment on above: Performed By: #### L 100.0100, L500.2500 ####[facility] [address] [place], [address] Hematocrit (Bld) [Volume fraction] 41.8 % Normal 37-47 [facility] Comment on above: Performed By: #### L 100.0100, L500.2500 ####[facility] [address] [place], [address] Hemoglobin (Bld) [Mass/Vol] 13.1 g/dL Normal 12.0-15.0 [facility] Comment on above: Performed By: #### L 100.0100, L500.2500 ####[facility] [address] [place], [address] IG% 0.200 Normal 0.0-0.9 [facility] Comment on above: Result Comment: IG% - Immature Granulocytes (promyelocytes, myelocytes andmetamyelocytes) > 1% indicates that a LEFT SHIFT is Present. Performed By: #### L 100.0100, L500.2500 ####[facility] [address] [place], [address] Lymphocytes/100 WBC (Bld) 6.2 % Low 19-41 [facility] Comment on above: Performed By: #### L 100.0100, L500.2500 ####[facility] [address] [place], [address] MCH (RBC) [Entitic mass] 27.3 pg Normal 27.0-32.0 [facility] Comment on above: Performed By: #### L 100.0100, L500.2500 ####[facility] [address] [place], [address] MCHC (RBC) [Mass/Vol] 31.3 g/dL Low 32-36 [facility] Comment on above: Performed By: #### L 100.0100, L500.2500 ####[facility] [address] [place], [address] MCV (RBC) [Entitic vol] 87.1 fL Normal 81-99 [facility] Comment on above: Performed By: #### L 100.0100, L500.2500 ####[facility] [address] [place], [address] Monocytes/100 WBC (Bld) 2.7 % Normal 0-10 [facility] Comment on above: Performed By: #### L 100.0100, L500.2500 ####[facility] [address] [place], [address] Neutrophils/100 WBC (Bld) 90.8 % High 47-70 [facility] Comment on above: Performed By: #### L 100.0100, L500.2500 ####[facility] [address] [place], [address] Nucleated RBC (Bld) [#/Vol] 0 10*3/uL Normal 0-5 [facility] Comment on above: Performed By: #### L 100.0100, L500.2500 ####[facility] [address] [place], [address] Platelet mean volume (Bld) [Entitic vol] 11.6 fL Normal 6.2-12.0 [facility] Comment on above: Performed By: #### L 100.0100, L500.2500 ####[facility] [address] [place], [address] Platelets (Bld) [#/Vol] 322 10*3/uL Normal 150-450 [facility] Comment on above: Performed By: #### L 100.0100, L500.2500 ####[facility] [address] [place], [address] RBC (Bld) [#/Vol] 4.80 10*6/uL Normal 4.2-5.4 [facility] Comment on above: Performed By: #### L 100.0100, L500.2500 ####[facility] [address] [place], [address] RDW SD 50.2 fl High 35.1-43.9 [facility] Comment on above: Performed By: #### L 100.0100, L500.2500 ####[facility] [address] [place], [address] WBC (Bld) [#/Vol] 12.0 10*3/uL High 4.4-11.0 [facility] Comment on above: Performed By: #### L 100.0100, L500.2500 ####[facility] [address] [place], [address] Basic Metabolic Profile (BMP )on 01-22-2025 BUN/CRE 29.2 RATIO High 10-20 [facility] Comment on above: Performed By: #### L 500.2500, L100.0100 ####[facility] [address] [place], [address] Calcium [Mass/Vol] 10.2 mg/dL Normal 7.6-11.0 [facility] Comment on above: Performed By: #### L 500.2500, L100.0100 ####[facility] [address] [place], [address] Chloride [Moles/Vol] 99 mmol/L Normal 98-108 [facility] Comment on above: Performed By: #### L 500.2500, L100.0100 ####[facility] [address] [place], [address] CO2 [Moles/Vol] 27.0 mmol/L Normal 21.0-32.0 [facility] Comment on above: Performed By: #### L 500.2500, L100.0100 ####[facility] [address] [place], [address] Creatinine [Mass/Vol] 1.07 mg/dL Normal 0.70-1.20 [facility] Comment on above: Performed By: #### L 500.2500, L100.0100 ####[facility] [address] [place], [address] ECRCL 40.54 ml/min Low 50-250 [facility] Comment on above: Performed By: #### L 500.2500, L100.0100 ####[facility] [address] [place], [address] GAP 10 Normal 5-15 [facility] Comment on above: Performed By: #### L 500.2500, L100.0100 ####[facility] [address] [place], [address] GFR/1.73 sq M.predicted among non-blacks MDRD (S/P/Bld) [Vol rate/Area] 52 mL/min/{1.73_m2} Low >60 [facility] Comment on above: Result Comment: mL/m in/1.73m2 CKD-EPI Creatinine Equation (2020) Performed By: #### L 500.2500, L100.0100 ####[facility] [address] [place], [address] Glucose [Mass/Vol] 160 mg/dL High 70-99 [facility] Comment on above: Performed By: #### L 500.2500, L100.0100 ####[facility] [address] [place], [address] Potassium [Moles/Vol] 4.8 mmol/L Normal 3.3-5.1 [facility] Comment on above: Performed By: #### L 500.2500, L100.0100 ####[facility] [address] [place], [address] Sodium [Moles/Vol] 136 mmol/L Normal 133-145 [facility] Comment on above: Performed By: #### L 500.2500, L100.0100 ####[facility] [address] [place], [address] Urea nitrogen [Mass/Vol] 31 mg/dL High 4-19 [facility] Comment on above: Performed By: #### L 500.2500, L100.0100 ####[facility] [address] [place], [address] Bedside Glucoseon 01-22-2024 FINGERSTICK GLU 310 mg/dL High 74-106 [facility] Comment on above: Result Comment: KATARINA GEMENT OF PATIENT CARE PER NURSING PROTOCOL Performed By: #### L 501.080 ####[facility] [address] [place], [address] FINGERSTICK GLU 269 mg/dL High 74-106 [facility] Comment on above: Result Comment: KATARINA GEMENT OF PATIENT CARE PER NURSING PROTOCOL Performed By: #### L 501.080 ####[facility] [address] [place], [address] FINGERSTICK GLU 232 mg/dL High 74-106 [facility] Comment on above: Result Comment: KATARINA GEMENT OF PATIENT CARE PER NURSING PROTOCOL Performed By: #### L 501.080 ####[facility] [address] [place], [address] FINGERSTICK GLU 183 mg/dL High 74-106 [facility] Comment on above: Result Comment: KATARINA GEMENT OF PATIENT CARE PER NURSING PROTOCOL Performed By: #### L 501.080 ####[facility] [address] [place], [address] CBC W/Diff, Automatedon 05-2 Absolute Lymph 0.73 X10 3/uL Low 0.83-4.51 [facility] Comment on above: Performed By: #### L 500.2500, L100.0100 ####[facility] [address] [place], [address] Absolute Neut 11.7 X10 3/uL High 2.0-7.7 [facility] Comment on above: Performed By: #### L 500.2500, L100.0100 ####[facility] [address] [place], [address] Basophils/100 WBC (Bld) 0.0 % Normal 0-1 [facility] Comment on above: Performed By: #### L 500.2500, L100.0100 ####[facility] [address] [place], [address] Eosinophils/100 WBC (Bld) 0.0 % Normal 0-5 [facility] Comment on above: Performed By: #### L 500.2500, L100.0100 ####[facility] [address] [place], [address] Erythrocyte distribution width (RBC) [Ratio] 15.9 % High 11.6-14.6 [facility] Comment on above: Performed By: #### L 500.2500, L100.0100 ####[facility] [address] [place], [address] Hematocrit (Bld) [Volume fraction] 35.6 % Low 37-47 [facility] Comment on above: Performed By: #### L 500.2500, L100.0100 ####[facility] [address] [place], [address] Hemoglobin (Bld) [Mass/Vol] 11.1 g/dL Low 12.0-15.0 [facility] Comment on above: Performed By: #### L 500.2500, L100.0100 ####[facility] [address] [place], [address] IG% 0.500 Normal 0.0-0.9 [facility] Comment on above: Result Comment: IG% - Immature Granulocytes (promyelocytes, myelocytes andmetamyelocytes) > 1% indicates that a LEFT SHIFT is Present. Performed By: #### L 500.2500, L100.0100 ####[facility] [address] [place], [address] Lymphocytes/100 WBC (Bld) 5.7 % Low 19-41 [facility] Comment on above: Performed By: #### L 500.2500, L100.0100 ####[facility] [address] [place], [address] MCH (RBC) [Entitic mass] 27.3 pg Normal 27.0-32.0 [facility] Comment on above: Performed By: #### L 500.2500, L100.0100 ####[facility] [address] [place], [address] MCHC (RBC) [Mass/Vol] 31.2 g/dL Low 32-36 [facility] Comment on above: Performed By: #### L 500.2500, L100.0100 ####[facility] [address] [place], [address] MCV (RBC) [Entitic vol] 87.7 fL Normal 81-99 [facility] Comment on above: Performed By: #### L 500.2500, L100.0100 ####[facility] [address] [place], [address] Monocytes/100 WBC (Bld) 2.4 % Normal 0-10 [facility] Comment on above: Performed By: #### L 500.2500, L100.0100 ####[facility] [address] [place], [address] Neutrophils/100 WBC (Bld) 91.4 % High 47-70 [facility] Comment on above: Performed By: #### L 500.2500, L100.0100 ####[facility] [address] [place], [address] Nucleated RBC (Bld) [#/Vol] 0 10*3/uL Normal 0-5 [facility] Comment on above: Performed By: #### L 500.2500, L100.0100 ####[facility] [address] [place], [address] Platelet mean volume (Bld) [Entitic vol] 11.1 fL Normal 6.2-12.0 [facility] Comment on above: Performed By: #### L 500.2500, L100.0100 ####[facility] [address] [place], [address] Platelets (Bld) [#/Vol] 281 10*3/uL Normal 150-450 [facility] Comment on above: Performed By: #### L 500.2500, L100.0100 ####[facility] [address] [place], [address] RBC (Bld) [#/Vol] 4.06 10*6/uL Low 4.2-5.4 [facility] Comment on above: Performed By: #### L 500.2500, L100.0100 ####[facility] [address] [place], [address] RDW SD 51.3 fl High 35.1-43.9 [facility] Comment on above: Performed By: #### L 500.2500, L100.0100 ####[facility] [address] [place], [address] WBC (Bld) [#/Vol] 12.8 10*3/uL High 4.4-11.0 [facility] Comment on above: Performed By: #### L 500.2500, L100.0100 ####[facility] [address] [place], [address] Urine Cultureon 01-22-2025 URC Normal [facility] Comment on above: Performed By: #### M 100.2200 ####[facility] [address] [place], [address] Basic Metabolic Profile (BMP )on 01-21-2025 BUN/CRE 19.6 RATIO Normal 10-20 [facility] Comment on above: Performed By: #### L 503.7505, L500.2500 ####[facility] [address] [place], [address] Calcium [Mass/Vol] 9.8 mg/dL Normal 7.6-11.0 [facility] Comment on above: Performed By: #### L 503.7505, L500.2500 ####[facility] [address] [place], [address] Chloride [Moles/Vol] 99 mmol/L Normal 98-108 [facility] Comment on above: Performed By: #### L 503.7505, L500.2500 ####[facility] [address] [place], [address] CO2 [Moles/Vol] 24.3 mmol/L Normal 21.0-32.0 [facility] Comment on above: Performed By: #### L 503.7505, L500.2500 ####[facility] [address] [place], [address] Creatinine [Mass/Vol] 1.19 mg/dL Normal 0.70-1.20 [facility] Comment on above: Performed By: #### L 503.7505, L500.2500 ####[facility] [address] [place], [address] ECRCL 36.45 ml/min Low 50-250 [facility] Comment on above: Performed By: #### L 503.7505, L500.2500 ####[facility] [address] [place], [address] GAP 14 Normal 5-15 [facility] Comment on above: Performed By: #### L 503.7505, L500.2500 ####[facility] [address] [place], [address] GFR/1.73 sq M.predicted among non-blacks MDRD (S/P/Bld) [Vol rate/Area] 46 mL/min/{1.73_m2} Low >60 [facility] Comment on above: Result Comment: mL/m in/1.73m2 CKD-EPI Creatinine Equation (2020) Performed By: #### L 503.7505, L500.2500 ####[facility] [address] [place], [address] Glucose [Mass/Vol] 208 mg/dL High 70-99 [facility] Comment on above: Performed By: #### L 503.7505, L500.2500 ####[facility] [address] [place], [address] Potassium [Moles/Vol] 4.0 mmol/L Normal 3.3-5.1 [facility] Comment on above: Performed By: #### L 503.7505, L500.2500 ####[facility] [address] [place], [address] Sodium [Moles/Vol] 138 mmol/L Normal 133-145 [facility] Comment on above: Performed By: #### L 503.7505, L500.2500 ####[facility] [address] [place], [address] Urea nitrogen [Mass/Vol] 23 mg/dL High 4-19 [facility] Comment on above: Performed By: #### L 503.7505, L500.2500 ####[facility] [address] [place], [address] Bedside Glucoseon 01-21-2025 FINGERSTICK GLU 271 mg/dL High 74-106 [facility] Comment on above: Result Comment: KATARINA GEMENT OF PATIENT CARE PER NURSING PROTOCOL Performed By: #### L 501.080 ####[facility] [address] [place], [address] FINGERSTICK GLU 254 mg/dL High 74-106 [facility] Comment on above: Result Comment: KATARINA GEMENT OF PATIENT CARE PER NURSING PROTOCOL Performed By: #### L 501.080 ####[facility] [address] [place], [address] FINGERSTICK GLU 323 mg/dL High -106 [facility] Comment on above: Result Comment: KATARINA GEMENT OF PATIENT CARE PER NURSING PROTOCOL Performed By: #### L 501.080 ####[facility] [address] [place], [address] FINGERSTICK GLU 202 mg/dL High 74-106 [facility] Comment on above: Result Comment: KATARINA GEMENT OF PATIENT CARE PER NURSING PROTOCOL Performed By: #### L 501.080 ####[facility] [address] [place], [address] CBC W/Diff, Automatedon 12-30 Absolute Lymph 0.79 X10 3/uL Low 0.83-4.51 [facility] Comment on above: Performed By: #### L 100.0100 ####[facility] [address] [place], [address] Absolute Neut 9.1 X10 3/uL High 2.0-7.7 [facility] Comment on above: Performed By: #### L 100.0100 ####[facility] [address] [place], [address] Basophils/100 WBC (Bld) 0.0 % Normal 0-1 [facility] Comment on above: Performed By: #### L 100.0100 ####[facility] [address] [place], [address] Eosinophils/100 WBC (Bld) 0.0 % Normal 0-5 [facility] Comment on above: Performed By: #### L 100.0100 ####[facility] [address] [place], [address] Erythrocyte distribution width (RBC) [Ratio] 16.0 % High 11.6-14.6 [facility] Comment on above: Performed By: #### L 100.0100 ####[facility] [address] [place], [address] Hematocrit (Bld) [Volume fraction] 35.0 % Low 37-47 [facility] Comment on above: Performed By: #### L 100.0100 ####[facility] [address] [place], [address] Hemoglobin (Bld) [Mass/Vol] 10.8 g/dL Low 12.0-15.0 [facility] Comment on above: Performed By: #### L 100.0100 ####[facility] [address] [place], [address] IG% 0.400 Normal 0.0-0.9 [facility] Comment on above: Result Comment: IG% - Immature Granulocytes (promyelocytes, myelocytes andmetamyelocytes) > 1% indicates that a LEFT SHIFT is Present. Performed By: #### L 100.0100 ####[facility] [address] [place], [address] Lymphocytes/100 WBC (Bld) 7.7 % Low 19-41 [facility] Comment on above: Performed By: #### L 100.0100 ####[facility] [address] [place], [address] MCH (RBC) [Entitic mass] 27.4 pg Normal 27.0-32.0 [facility] Comment on above: Performed By: #### L 100.0100 ####[facility] [address] [place], [address] MCHC (RBC) [Mass/Vol] 30.9 g/dL Low 32-36 [facility] Comment on above: Performed By: #### L 100.0100 ####[facility] [address] [place], [address] MCV (RBC) [Entitic vol] 88.8 fL Normal 81-99 [facility] Comment on above: Performed By: #### L 100.0100 ####[facility] [address] [place], [address] Monocytes/100 WBC (Bld) 3.5 % Normal 0-10 [facility] Comment on above: Performed By: #### L 100.0100 ####[facility] [address] [place], [address] Neutrophils/100 WBC (Bld) 88.4 % High 47-70 [facility] Comment on above: Performed By: #### L 100.0100 ####[facility] [address] [place], [address] Nucleated RBC (Bld) [#/Vol] 0 10*3/uL Normal 0-5 [facility] Comment on above: Performed By: #### L 100.0100 ####[facility] [address] [place], [address] Platelet mean volume (Bld) [Entitic vol] 11.0 fL Normal 6.2-12.0 [facility] Comment on above: Performed By: #### L 100.0100 ####[facility] [address] [place], [address] Platelets (Bld) [#/Vol] 245 10*3/uL Normal 150-450 [facility] Comment on above: Performed By: #### L 100.0100 ####[facility] [address] [place], [address] RBC (Bld) [#/Vol] 3.94 10*6/uL Low 4.2-5.4 [facility] Comment on above: Performed By: #### L 100.0100 ####[facility] [address] [place], [address] RDW SD 51.8 fl High 35.1-43.9 [facility] Comment on above: Performed By: #### L 100.0100 ####[facility] [address] [place], [address] WBC (Bld) [#/Vol] 10.3 10*3/uL Normal 4.4-11.0 [facility] Comment on above: Performed By: #### L 100.0100 ####[facility] [address] [place], [address] Chest 1 View (Portable)on Chest 1 View (Portable) Normal [facility] L503.7505on 01-21-2025 Natriuretic peptide B (Bld) [Mass/Vol] 44352 pg/mL High <=1800 [facility] Comment on above: Result Comment: Hear t Failure Unlikely: < 300 pg/mLHeart Failure Likely< 50 Years: > 450 pg/mL50-75 Years: > 900 pg/mL>75 Years: > 1800 pg/mL Performed By: #### L 503.7505, L500.2500 ####[facility] [address] [place], [address] Natriuretic peptide.B prohor hayley N-Terminal [Mass/volume] in Serum or PlasmaOrdered By: Sandeep Marie on 01-21-2025 Natriuretic peptide.B prohormone N-Terminal [Mass/Vol] 34598 pg/mL High <1800 [facility] 12 Lead EKGon 01-20-2025 12 Lead EKG Normal [facility] Activated partial thrombopla stin time (aPTT) in platelet poor plasma by coagulation aOrdered By: Jeevan Yoder on 01-20-2025 aPTT Coag (PPP) [Time] 26.9 s 24.1-36.2 [facility] Assessment of wrist artery p atency prior to arterial punctureOrdered By: Lucio Borden on 01-20-2025 Arterial patency Wrist artery --pre arterial puncture Positive [facility] Bedside Glucoseon 01-20-2025 FINGERSTICK GLU 265 mg/dL High [facility]106 [facility] Comment on above: Result Comment: KATARINA GEMENT OF PATIENT CARE PER NURSING PROTOCOL Performed By: #### L 501.080 ####[facility] [address] [facility] [address] FINGERSTICK GLU 361 mg/dL [address] Comment on above: Result Comment: KATARINA GEMENT OF PATIENT CARE PER NURSING PROTOCOL Performed By: #### L 501.080 ####[facility] [address] [place], [address] FINGERSTICK GLU 389 mg/dL High [address] [place] [address] Comment on above: Result Comment: KATARINA GEMENT OF PATIENT CARE PER NURSING PROTOCOL Performed By: #### L 501.080 ####[facility] [address] [place], [address] FINGERSTICK GLU 338 mg/dL [address] Comment on above: Result Comment: KATARINA GEMENT OF PATIENT CARE PER NURSING PROTOCOL Performed By: #### L 501.080 ####[facility] [address] [place], [address] Bilirubin Test strip Ql (U)O rdered By: Jeevan Yoder on 01-20-2025 Bilirubin Ql (U) Negative Negative [facility] Bilirubin, totalOrdered By: Jeevan Yoder on 01-20-2025 Bilirubin [Mass/Vol] 0.26 mg/dL 0.00-1.30 [facility]ON [facility] Positive Normal [facility] Comment on above: Performed By: #### L 9000.0800 ####[facility] [address] [place], [address] Base excess Calc (Bld) [Moles/Vol] 10 mmol/L High -2 to +2 [facility] Comment on above: Performed By: #### L 9000.0800 ####[facility] [address] [place], [address] Blood Gas Type ART Normal [facility] Comment on above: Performed By: #### L 9000.0800 ####[facility] [address] [place], [address] CO2 [Moles/Vol] 37 mmol/L Normal [facility] Comment on above: Performed By: #### L 9000.0800 ####[facility] [address] [place], [address] FI02 30.0 [facility] Comment on above: Performed By: #### L 9000.0800 ####[facility] [address] [place], [address] HCO3 (Bld) [Moles/Vol] 35.5 mmol/L High 22-26 [facility] Comment on above: Performed By: #### L 9000.0800 ####[facility] [address] [place], [address] Normal [facility] Comment on above: Performed By: #### L 9000.0800 ####[facility] [address] [place], [address] O2 Delivery Dev BiPAP Normal [facility] Comment on above: Performed By: #### L 9000.0800 ####[facility] [address] [place], [address] pCO2 59.4 mmHg High 35-45 [facility] Comment on above: Performed By: #### L 9000.0800 ####[facility] [address] [place], [address] PEEP 8 Normal [facility] Comment on above: Performed By: #### L 9000.0800 ####[facility] [address] [place], [address] pH (Bld) 7.38 [pH] Normal 7.35-7.45 [facility] Comment on above: Performed By: #### L 9000.0800 ####[facility] [address] [place], [address] PO2 21 mmHG Invalid Interpretation Code 75-100 [facility] Comment on above: Performed By: #### L 9000.0800 ####[facility] [address] [place], [address] Read Back By Yes Normal [facility] Comment on above: Performed By: #### L 9000.0800 ####[facility] [address] [place], [address] Results To tereletsky Normal [facility] Comment on above: Performed By: #### L 9000.0800 ####[facility] [address] [place], [address] RR 14 Normal [facility] Comment on above: Performed By: #### L 9000.0800 ####[facility] [address] [place], [address] SITE R Radial Normal [facility] Comment on above: Performed By: #### L 9000.0800 ####[facility] [address] [place], [address] SO2 32 Low 95-99 [facility] Comment on above: Performed By: #### L 9000.0800 ####[facility] [address] [place], [address] Time Given 16:55:40 Normal [facility] Comment on above: Performed By: #### L 8999.0800 ####[facility] [address] [place], [address] Vt 500.0 mL Normal [facility] Comment on above: Performed By: #### L 8999.0800 ####[facility] [address] [place], [address] BARON TEST Positive Normal [facility] Comment on above: Performed By: #### L 8999.0800 ####[facility] [address] [place], [address] Base excess Calc (Bld) [Moles/Vol] 5 mmol/L High -2 to +2 [facility] Comment on above: Performed By: #### L 8999.08 ####[facility] [address] [place], [address] Blood Gas Type ART Normal [facility] Comment on above: Performed By: #### L 8999.0800 ####[facility] [address] [place], [address] CO2 [Moles/Vol] 33 mmol/L Normal [facility] Comment on above: Performed By: #### L 8999.0800 ####[facility] [address] [place], [address] FI02 30.0 Normal [facility] Comment on above: Performed By: #### L 8999.08 ####[facility] [address] [place], [address] HCO3 (Bld) [Moles/Vol] 30.8 mmol/L High 22-26 [facility] Comment on above: Performed By: #### L 8999.0800 ####[facility] [address] [place], [address] Mode Not entered Normal [facility] Comment on above: Performed By: #### L 9000.0800 ####[facility] [address] [place], [address] O2 Delivery Dev BiPAP Normal [facility] Comment on above: Performed By: #### L 9000.0800 ####[facility] [address] [place], [address] pCO2 56.2 mmHg High 35-45 [facility] Comment on above: Performed By: #### L 9000.0800 ####[facility] [address] [place], [address] PEEP 8 Normal [facility] Comment on above: Performed By: #### L 9000.0800 ####[facility] [address] [place], [address] pH (Bld) 7.35 [pH] Normal 7.35-7.45 [facility] Comment on above: Performed By: #### L 9000.0800 ####[facility] [address] [place], [address] PO2 37 mmHG Invalid Interpretation Code 75-100 [facility] Comment on above: Performed By: #### L 9000.0800 ####[facility] [address] [place], [address] Read Back By Yes Normal [facility] Comment on above: Performed By: #### L 9000.0800 ####[facility] [address] [place], [address] RR 14 Normal [facility] Comment on above: Performed By: #### L 9000.0800 ####[facility] [address] [place], [address] SITE R Radial Normal [facility] Comment on above: Performed By: #### L 9000.0800 ####[facility] [address] [place], [address] SO2 66 Low 95-99 [facility] Comment on above: Performed By: #### L 9000.0800 ####[facility] [address] [place], [address] Vt 500.0 mL Normal [facility] Comment on above: Performed By: #### L 9000.0800 ####[facility] [address] [place], [address] BARON TEST Positive Normal [facility] Comment on above: Performed By: #### L 9000.0800 ####[facility] [address] [place], [address] Base excess Calc (Bld) [Moles/Vol] 5 mmol/L High -2 to +2 [facility] Comment on above: Performed By: #### L 9000.0800 ####[facility] [address] [place], [address] Blood Gas Type ART Normal [facility] Comment on above: Performed By: #### L 9000.0800 ####[facility] [address] [place], [address] CO2 [Moles/Vol] 34 mmol/L Normal [facility] Comment on above: Performed By: #### L 9000.0800 ####[facility] [address] [place], [address] Comment Normal [facility] Comment on above: Result Comment: AVAP S 500vt 14rr 100% +8 maxP=26 minP=18 Performed By: #### L 9000.0800 ####[facility] [address] [place], [address] FI02 100.0 Normal [facility] Comment on above: Performed By: #### L 9000.0800 ####[facility] [address] [place], [address] HCO3 (Bld) [Moles/Vol] 31.6 mmol/L High 22-26 [facility] Comment on above: Performed By: #### L 9000.0800 ####[facility] [address] [place], [address] Mode Not entered Normal [facility] Comment on above: Performed By: #### L 9000.0800 ####[facility] [address] [place], [address] O2 Delivery Dev BiPAP Normal [facility] Comment on above: Performed By: #### L 9000.0800 ####[facility] [address] [place], [address] pCO2 63.0 mmHg High 35-45 [facility] Comment on above: Performed By: #### L 9000.0800 ####[facility] [address] [place], [address] pH (Bld) 7.31 [pH] Low 7.35-7.45 [facility] Comment on above: Performed By: #### L 9000.0800 ####[facility] [address] [place], [address] PO2 83 mmHG Normal 75-100 [facility] Comment on above: Performed By: #### L 9000.0800 ####[facility] [address] [place], [address] SITE R Radial Normal [facility] Comment on above: Performed By: #### L 9000.0800 ####[facility] [address] [place], [address] SO2 95 Normal 95-99 [facility] Comment on above: Performed By: #### L 9000.0800 ####[facility] [address] [place], [address] Blood base excess determinat ionOrdered By: Lucio Borden on 01-20-2025 Base excess Calc (BldV) [Moles/Vol] 10 mmol/L High -2-2 [facility] Blood bicarbonate measuremen tOrdered By: Lucio Borden on 01-20-2025 HCO3 (Bld) [Moles/Vol] 35.5 mmol/L High 22-26 [facility] Blood cultureOrdered By: Mikey Marie on 01-20-2025 Bacteria identified Cx Nom (Bld) No growth in 5 days. [facility] Blood cultureOrdered By: Maeve Yoder on 01-20-2025 Bacteria identified Cx Nom (Bld) No growth in 5 days. [facility] Bacteria identified Cx Nom (Bld) No growth in 5 days. [facility] CBC W/Diff, Automatedon 12-30 Absolute Lymph 4.62 X10 3/uL High 0.83-4.51 [facility] Comment on above: Performed By: #### L 300.4310, L100.0100, L300.3900, L501.4021, L503.6005, L500.4050, M200.1000 ####[facility] [address] [place], [address] Absolute Neut 8.4 X10 3/uL High 2.0-7.7 [facility] Comment on above: Performed By: #### L 300.4310, L100.0100, L300.3900, L501.4021, L503.6005, L500.4050, M200.1000 ####[facility] [address] [place], [address] Basophils/100 WBC (Bld) 0.6 % Normal 0-1 [facility] Comment on above: Performed By: #### L 300.4310, L100.0100, L300.3900, L501.4021, L503.6005, L500.4050, M200.1000 ####[facility] [address] [place], [address] Eosinophils/100 WBC (Bld) 0.8 % Normal 0-5 [facility] Comment on above: Performed By: #### L 300.4310, L100.0100, L300.3900, L501.4021, L503.6005, L500.4050, M200.1000 ####[facility] [address] [place], [address] Erythrocyte distribution width (RBC) [Ratio] 16.0 % High 11.6-14.6 [facility] Comment on above: Performed By: #### L 300.4310, L100.0100, L300.3900, L501.4021, L503.6005, L500.4050, M200.1000 ####[facility] [address] [place], [address] Hematocrit (Bld) [Volume fraction] 39.6 % Normal 37-47 [facility] Comment on above: Performed By: #### L 300.4310, L100.0100, L300.3900, L501.4021, L503.6005, L500.4050, M200.1000 ####[facility] [address] [place], [address] Hemoglobin (Bld) [Mass/Vol] 12.1 g/dL Normal 12.0-15.0 [facility] Comment on above: Performed By: #### L 300.4310, L100.0100, L300.3900, L501.4021, L503.6005, L500.4050, M200.1000 ####[facility] [address] [place], [address] IG% 0.500 Normal 0.0-0.9 [facility] Comment on above: Result Comment: IG% - Immature Granulocytes (promyelocytes, myelocytes andmetamyelocytes) > 1% indicates that a LEFT SHIFT is Present. Performed By: #### L 300.4310, L100.0100, L300.3900, L501.4021, L503.6005, L500.4050, M200.1000 ####[facility] [address] [place], [address] Lymphocytes/100 WBC (Bld) 32.0 % Normal 19-41 [facility] Comment on above: Performed By: #### L 300.4310, L100.0100, L300.3900, L501.4021, L503.6005, L500.4050, M200.1000 ####[facility] [address] [place], [address] MCH (RBC) [Entitic mass] 27.4 pg Normal 27.0-32.0 [facility] Comment on above: Performed By: #### L 300.4310, L100.0100, L300.3900, L501.4021, L503.6005, L500.4050, M200.1000 ####[facility] [address] [place], [address] MCHC (RBC) [Mass/Vol] 30.6 g/dL Low 32-36 [facility] Comment on above: Performed By: #### L 300.4310, L100.0100, L300.3900, L501.4021, L503.6005, L500.4050, M200.1000 ####[facility] [address] [place], [address] MCV (RBC) [Entitic vol] 89.8 fL Normal 81-99 [facility] Comment on above: Performed By: #### L 300.4310, L100.0100, L300.3900, L501.4021, L503.6005, L500.4050, M200.1000 ####[facility] [address] [place], [address] Monocytes/100 WBC (Bld) 7.7 % Normal 0-10 [facility] Comment on above: Performed By: #### L 300.4310, L100.0100, L300.3900, L501.4021, L503.6005, L500.4050, M200.1000 ####[facility] [address] [place], [address] Neutrophils/100 WBC (Bld) 58.4 % Normal 47-70 [facility] Comment on above: Performed By: #### L 300.4310, L100.0100, L300.3900, L501.4021, L503.6005, L500.4050, M200.1000 ####[facility] [address] [place], [address] Nucleated RBC (Bld) [#/Vol] 0 10*3/uL Normal 0-5 [facility] Comment on above: Performed By: #### L 300.4310, L100.0100, L300.3900, L501.4021, L503.6005, L500.4050, M200.1000 ####[facility] [address] [place], [address] Platelet mean volume (Bld) [Entitic vol] 12.0 fL Normal 6.2-12.0 [facility] Comment on above: Performed By: #### L 300.4310, L100.0100, L300.3900, L501.4021, L503.6005, L500.4050, M200.1000 ####[facility] [address] [place], [address] Platelets (Bld) [#/Vol] 287 10*3/uL Normal 150-450 [facility] Comment on above: Performed By: #### L 300.4310, L100.0100, L300.3900, L501.4021, L503.6005, L500.4050, M200.1000 ####[facility] [address] [place], [address] RBC (Bld) [#/Vol] 4.41 10*6/uL Normal 4.2-5.4 [facility] Comment on above: Performed By: #### L 300.4310, L100.0100, L300.3900, L501.4021, L503.6005, L500.4050, M200.1000 ####[facility] [address] [place], [address] RDW SD 52.7 fl High 35.1-43.9 [facility] Comment on above: Performed By: #### L 300.4310, L100.0100, L300.3900, L501.4021, L503.6005, L500.4050, M200.1000 ####[facility] [address] [place], [address] WBC (Bld) [#/Vol] 14.4 10*3/uL High 4.4-11.0 [facility] Comment on above: Performed By: #### L 300.4310, L100.0100, L300.3900, L501.4021, L503.6005, L500.4050, M200.1000 ####[facility] [address] [place], [address] CTA Chest W/WO Contraston CTA Chest W/WO Contrast Normal [facility] Calculated very low density lipoprotein (VLDL) cholesterol measurementOrdered By: Sandeep Marie on 01-20-2025 Calculated very low density lipoprotein (VLDL) cholesterol measurement 12 mg/dL 5-40 [facility] Comprehensive Metabolic Prof ilon 01-20-2025 Albumin [Mass/Vol] 3.6 g/dL Normal 3.4-4.8 [facility] Comment on above: Performed By: #### L 300.4310, L100.0100, L300.3900, L501.4021, L503.6005, L500.4050, M200.1000 ####[facility] [address] [place], [address] Albumin/Globulin [Mass ratio] 0.9 {ratio} Normal 0.9-2.4 [facility] Comment on above: Performed By: #### L 300.4310, L100.0100, L300.3900, L501.4021, L503.6005, L500.4050, M200.1000 ####[facility] [address] [place], [address] ALK PHOS 143 U/L High 35-104 [facility] Comment on above: Performed By: #### L 300.4310, L100.0100, L300.3900, L501.4021, L503.6005, L500.4050, M200.1000 ####[facility] [address] [place], [address] ALT [Catalytic activity/Vol] 36 U/L High <=34 [facility] Comment on above: Performed By: #### L 300.4310, L100.0100, L300.3900, L501.4021, L503.6005, L500.4050, M200.1000 ####[facility] [address] [place], [address] AST [Catalytic activity/Vol] 81 U/L High <=31 [facility] Comment on above: Result Comment: Hemo lysis present, Results??could be affected.?? Performed By: #### L 300.4310, L100.0100, L300.3900, L501.4021, L503.6005, L500.4050, M200.1000 ####[facility] [address] [place], [address] Bilirubin [Mass/Vol] 0.26 mg/dL Normal 0.00-1.30 [facility] Comment on above: Performed By: #### L 300.4310, L100.0100, L300.3900, L501.4021, L503.6005, L500.4050, M200.1000 ####[facility] [address] [place], [address] BUN/CRE 8.1 RATIO Low 10-20 [facility] Comment on above: Performed By: #### L 300.4310, L100.0100, L300.3900, L501.4021, L503.6005, L500.4050, M200.1000 ####[facility] [address] [place], [address] Calcium [Mass/Vol] 10.2 mg/dL Normal 7.6-11.0 [facility] Comment on above: Performed By: #### L 300.4310, L100.0100, L300.3900, L501.4021, L503.6005, L500.4050, M200.1000 ####[facility] [address] [place], [address] Chloride [Moles/Vol] 97 mmol/L Low 98-108 [facility] Comment on above: Performed By: #### L 300.4310, L100.0100, L300.3900, L501.4021, L503.6005, L500.4050, M200.1000 ####[facility] [address] [place], [address] CO2 [Moles/Vol] 25.7 mmol/L Normal 21.0-32.0 [facility] Comment on above: Performed By: #### L 300.4310, L100.0100, L300.3900, L501.4021, L503.6005, L500.4050, M200.1000 ####[facility] [address] [place], [address] Creatinine [Mass/Vol] 1.24 mg/dL High 0.70-1.20 [facility] Comment on above: Performed By: #### L 300.4310, L100.0100, L300.3900, L501.4021, L503.6005, L500.4050, M200.1000 ####[facility] [address] [place], [address] ECRCL 34.84 ml/min Low 50-250 [facility] Comment on above: Performed By: #### L 300.4310, L100.0100, L300.3900, L501.4021, L503.6005, L500.4050, M200.1000 ####[facility] [address] [place], [address] GAP 15 Normal 5-15 [facility] Comment on above: Performed By: #### L 300.4310, L100.0100, L300.3900, L501.4021, L503.6005, L500.4050, M200.1000 ####[facility] [address] [place], [address] GFR/1.73 sq M.predicted among non-blacks MDRD (S/P/Bld) [Vol rate/Area] 44 mL/min/{1.73_m2} Low >60 [facility] Comment on above: Result Comment: mL/m in/1.73m2 CKD-EPI Creatinine Equation (2020) Performed By: #### L 300.4310, L100.0100, L300.3900, L501.4021, L503.6005, L500.4050, M200.1000 ####[facility] [address] [place], [address] Globulin (S) [Mass/Vol] 4.1 g/dL Normal 2.2-4.2 [facility] Comment on above: Performed By: #### L 300.4310, L100.0100, L300.3900, L501.4021, L503.6005, L500.4050, M200.1000 ####[facility] [address] [place], [address] Glucose [Mass/Vol] 347 mg/dL High 70-99 [facility] Comment on above: Performed By: #### L 300.4310, L100.0100, L300.3900, L501.4021, L503.6005, L500.4050, M200.1000 ####[facility] [address] [place], [address] Potassium [Moles/Vol] 4.0 mmol/L Normal 3.3-5.1 [facility] Comment on above: Result Comment: Hemo lysis present, Results??could be affected.?? Performed By: #### L 300.4310, L100.0100, L300.3900, L501.4021, L503.6005, L500.4050, M200.1000 ####[facility] [address] [place], [address] Sodium [Moles/Vol] 137 mmol/L Normal 133-145 [facility] Comment on above: Performed By: #### L 300.4310, L100.0100, L300.3900, L501.4021, L503.6005, L500.4050, M200.1000 ####[facility] [address] [place], [address] T PROT 7.6 g/dL Normal 5.9-8.4 [facility] Comment on above: Performed By: #### L 300.4310, L100.0100, L300.3900, L501.4021, L503.6005, L500.4050, M200.1000 ####[facility] [address] [place], [place], [address] Urea nitrogen [Mass/Vol] 10 mg/dL Normal 4-19 [facility] Comment on above: Performed By: #### L 300.4310, L100.0100, L300.3900, L501.4021, L503.6005, L500.4050, M200.1000 ####[facility] [address] [place], [address] Echo Completeon 01-20-2025 Echo Complete Normal [facility] Echocardiogram study reportO rdered By: Marcelina Soto on 01-20-2025 Study report [facility] Work Phone: Emergency Department Summary on 01-20-2025 Emergency Department Summary Normal [facility] H AND P Exam - Hospitaliston 01-20-2025 H&P Exam - Hospitalist Normal [facility] Hemoglobin A1con 01-20-2025 HbA1c (Bld) [Mass fraction] 10.6 % High <=5.6 [facility] Comment on above: Result Comment: Norm al < 5.7 % Prediabetic 5.7 - 6.4 % Diabetic >or= 6.5 % Please note range changes. Performed By: #### L 501.9993 ####[facility] [address] [place], [address] Hemoglobin A1c percentageOrd ered By: Sandeep Marie on 01-20-2025 HbA1c (Bld) [Mass fraction] 10.6 % High <5.7 [facility] Ketones Test strip Ql (U)Ord ered By: Jeevan Yoder on 01-20-2025 Ketones Ql (U) Negative Negative [facility] L499.0042on 01-20-2025 Trop T High Sen 71 ng/L Invalid Interpretation Code <=14 [facility] Comment on above: Result Comment: Crit ical Result(s) Called at:0237 by: E[facility] BOWEN TO [facility].??Results read back by same. Performed By: #### L 499.0042 ####[facility] [address] [place], [address] L499.0043on 01-20-2025 Trop T High Sen 94 ng/L Invalid Interpretation Code <=14 [facility] Comment on above: Order Comment: PT SUAREZ S NOT MADE IT TO ROOM YET FROM ER OF 409 Result Comment: Crit ical Result(s) Called at 0548: by: SHARONA ALVAREZ. ??Results read back by same. Performed By: #### L 499.0043 ####[facility] [address] [place], [address] L501.4021on 01-20-2025 Trop T High Sen 52 ng/L High <=14 [facility] Comment on above: Performed By: #### L 300.4310, L100.0100, L300.3900, L501.4021, L503.6005, L500.4050, M200.1000 ####[facility] [address] [place], [address] L503.7505on 01-20-2025 Natriuretic peptide B (Bld) [Mass/Vol] 9449 pg/mL High <=1800 [facility] Comment on above: Result Comment: Hear t Failure Unlikely: < 300 pg/mLHeart Failure Likely< 50 Years: > 450 pg/mL50-75 Years: > 900 pg/mL>75 Years: > 1800 pg/mL Performed By: #### L 501.9520, L503.7505, L500.4100 ####[facility] [address] [place], [address] LDL calc ser/plasOrdered By: Sandeep Marie on 01-20-2025 Cholesterol in LDL [Mass/Vol] 79 mg/dL [facility] Lactic Acidon 01-20-2025 Lactate [Moles/Vol] 1.7 mmol/L Normal 0.0-2.0 [facility] Comment on above: Performed By: #### L 503.6005 ####[facility] [address] [place], [address] Lactate [Moles/Vol] 2.0 mmol/L Normal 0.0-2.0 [facility] Comment on above: Order Comment: Comme nts: if result >2, system reflex orders 2nd test @ 4hrsY Result Comment: Crit ical Result(s) Called at 0615: by: SHARONA ALVAREZ. ??Results read back by same. Performed By: #### M 200.1000, L503.6005 ####[facility] [address] [place], [address] Lactate [Moles/Vol] 3.4 mmol/L Invalid Interpretation Code 0.0-2.0 [facility] Comment on above: Order Comment: Y Result Comment: Crit ical Result(s) Called at: 0116 by: EMA BOWEN TO [facility].??Results read back by same. Performed By: #### L 300.4310, L100.0100, L300.3900, L501.4021, L503.6005, L500.4050, M200.1000 ####[facility] [address] [place], [address] Legionella Antigen Urineon 0 01-20-2025 LEGU Normal [facility] Comment on above: Performed By: #### M 300.4600, M300.4500 ####[facility] [address] [place], [address] Lipid Profileon 01-20-2025 CHOL:HDL 2.89 Normal [facility] Comment on above: Performed By: #### L 501.9520, L503.7505, L500.4100 ####[facility] [address] [place], [address] Cholesterol [Mass/Vol] 140 mg/dL Normal <=200 [facility] Comment on above: Result Comment: Chol esterol level, Desirable <200 mg/dLBorderline high cholesterol 200-239 mg/dLHigh cholesterol >=240 mg/dLRecommendations of the NCEP Adult Treatment Panel for thefollowing risk-cutoff thresholds for the [place] Americanpulation. Performed By: #### L 501.9520, L503.7505, L500.4100 ####[facility] [address] [place], [address] Cholesterol in HDL [Mass/Vol] 49 mg/dL Normal [facility] Comment on above: Result Comment: Camelia onal Cholesterol Education Program (NCEP) guidelines:<40 mg/dL: Low HDL-cholesterol (major risk factor for CHD)>= 60 mg/dL: High HDL-cholesterol (negative risk factor forCHD)HDL-cholesterol is affected by a number of factors, e.g.smoking, exercise, hormones, sex and age. Performed By: #### L 501.9520, L503.7505, L500.4100 ####[facility] [address] [place], [address] Cholesterol in LDL [Mass/Vol] 79 mg/dL Normal [facility] Comment on above: Result Comment: Bord jatret=704-058 mg/dL Higher Scww=943 mg/dL or greater Performed By: #### L 501.9520, L503.7505, L500.4100 ####[facility] [address] [place], [address] Cholesterol in VLDL [Mass/Vol] 12 mg/dL Normal 5-40 [facility] Comment on above: Performed By: #### L 501.9520, L503.7505, L500.4100 ####[facility] [address] [place], [address] Triglyceride [Mass/Vol] 62 mg/dL Normal [facility] Comment on above: Result Comment: The drugs N-Acetylcysteine and Metamizole may falselydepress this assay.Normal range: <150 mg/dLBorderline High: 150-199 mg/dLHigh: 200-499 mg/dLVery High: >500 mg/dL Performed By: #### L 501.9520, L503.7505, L500.4100 ####[facility] [address] [place], [address] Measurement, pHOrdered By: Connor Borden on 01-20-2025 pH (Unsp spec) 7.38 [pH] 7.35-7.45 [facility] Mucus LM Ql (Urine sed)Order ed By: Jeevan Yoder on 01-20-2025 Mucus Ql (Urine sed) 0 SEEN /hpf [facility] Nitrite Test strip Ql (U)Ord ered By: Jeevan Yoder on 01-20-2025 Nitrite Ql (U) Negative Negative [facility] No Panel InformationOrdered By: Lucio Borden on 01-20-2025 ART [facility] R Radial [facility] ST [facility] BiPAP [facility] 500.0 mL [facility] 14 [facility] 8 [facility] 16:55:40 [facility] Yes [facility] No Panel InformationOrdered By: Jeevan Yoder on 01-20-2025 See comment [facility] 81 U/L High <32 [facility] Partial Thromboplast Timeon 01-20-2025 aPTT Coag (Bld) [Time] 26.9 s Normal 24.1-36.2 [facility] Comment on above: Performed By: #### L 300.4310, L100.0100, L300.3900, L501.4021, L503.6005, L500.4050, M200.1000 ####[facility] [address] [place], [address] Protein Test strip Ql (U)Ord ered By: Jeevan Yoder on 01-20-2025 Protein Ql (U) 100 mg/dl High Negative [facility] Prothrombin Time w/INRon INR Coag (PPP) [Relative time] 1.1 {INR} Normal [facility] Comment on above: Performed By: #### L 300.4310, L100.0100, L300.3900, L501.4021, L503.6005, L500.4050, M200.1000 ####[facility] [address] [place], [address] PT Coag (PPP) [Time] 14.6 s Normal 11.7-14.9 [facility] Comment on above: Performed By: #### L 300.4310, L100.0100, L300.3900, L501.4021, L503.6005, L500.4050, M200.1000 ####[facility] [address] [place], [address] Prothrombin timeOrdered By: Jeevan Yoder on 01-20-2025 PT Coag (PPP) [Time] 14.6 s 11.7-14.9 [facility] RESPIRATORY PANEL MOLECULARo n 01-20-2025 RP PANEL Normal [facility] Comment on above: Performed By: #### M 100.638 ####[facility] [address] [place], [address] Respiratory pathogens detect ion panel by molecular detection methodOrdered By: Sandeep Marie on 01-20-2025 Respiratory pathogens DNA and RNA panel BEBETO+probe (Resp) [facility] Serum globulin measurementOr dered By: Jeevan Yoder on 01-20-2025 Globulin (S) [Mass/Vol] 4.1 g/dL 2.2-4.2 [facility] Serum or plasma alanine kelley otransferase (ALT) measurementOrdered By: Jeevan Yoder on 01-20-2025 ALT [Catalytic activity/Vol] 36 U/L High <35 [facility] Serum or plasma albumin melanie urement (mass/volume)Ordered By: Jeevan Yoder on 01-20-2025 Albumin [Mass/Vol] 3.6 g/dL 3.4-4.8 [facility] Serum or plasma albumin/glob ulin mass ratioOrdered By: Jeevan Yoder on 01-20-2025 Albumin/Globulin [Mass ratio] 0.9 {ratio} 0.9-2.4 [facility] Serum or plasma alkaline lissa sphatase measurementOrdered By: Jeevan Yoder on 01-20-2025 ALP [Catalytic activity/Vol] 143 U/L High 35-104 [facility] Serum or plasma cholesterol in HDL measurement (mass/volume)Ordered By: Sandeep Marie on 01-20-2025 Cholesterol in HDL [Mass/Vol] 49 mg/dL >40 [facility] Serum or plasma cholesterol measurement (mass/volume)Ordered By: Sandeep Marie on 01-20-2025 Cholesterol [Mass/Vol] 140 mg/dL <201 [facility] Squamous epithelial cells de tection in urine sediment by light microscopyOrdered By: Jeevan Yoder on 01-20-2025 Epithelial cells.squamous LM Ql (Urine sed) 5-10 SEEN /hpf 5-10 [facility] Strep pneumoniae Antig(UR,CS F)on 01-20-2025 STPAG Normal [facility] Comment on above: Performed By: #### M 300.4600, M300.4500 ####[facility] [address] [place], [place], [address] TSH DL <= 0.005 mIU/L QnOrde red By: Sandeep Marie on 01-20-2025 TSH Qn 0.492 uIU/mL 0.300-4.200 [facility] Thyroid Stim Hormone (TSH)on 01-20-2025 TSH 0.492 uIU/mL Normal 0.300-4.200 [facility] Comment on above: Performed By: #### L 501.3900, L503.0405, L500.9020 ####[facility] [address] [place], [place], [address] Total carbon dioxide measure mentOrdered By: Lucio Borden on 01-20-2025 CO2 [Moles/Vol] 37 mmol/L [facility] Total proteinOrdered By: Maeve oYder on 01-20-2025 Protein [Mass/Vol] 7.6 g/dL 5.9-8.4 [facility] Troponin T.cardiac [Mass/vol ume] in Serum or Plasma by High sensitivity methodOrdered By: Jeevan Yoder on 01-20-2025 Troponin T.cardiac High sensitivity method [Mass/Vol] 94 ng/L High <14 [facility] Troponin T.cardiac High sensitivity method [Mass/Vol] 71 ng/L High <14 [facility] Troponin T.cardiac High sensitivity method [Mass/Vol] 52 ng/L High <14 [facility] Urinalysis, Completeon 01-20 EPI,SQUAMOUS 5-10 SEEN Normal 5-10 [facility] Comment on above: Order Comment: MARSHALL CTOR TO SPECIFY Performed By: #### L 400.0001 ####[facility] [address] [facility] [address] RBC 5-10 SEEN Normal 0-5 [facility] Comment on above: Order Comment: MARSHALL CTOR TO SPECIFY Performed By: #### L 400.0001 ####[facility] [address] [place], [address] WBC 0-5 SEEN Normal 0-5 [facility] Comment on above: Order Comment: MARSHALL CTOR TO SPECIFY Performed By: #### L 400.0001 ####[facility] [address] [place], [address] BACTERIA 0 SEEN Normal None Seen [facility] Comment on above: Order Comment: MARSHALL CTOR TO SPECIFY Performed By: #### L 400.0001 ####[facility] [address] [place], [address] Mucus Ql (Urine sed) 0 SEEN Normal [facility] Comment on above: Order Comment: MARSHALL CTOR TO SPECIFY Performed By: #### L 400.0001 ####[facility] [address] [place], [address] Urine Legionella pneumophila antigen detectionOrdered By: Sandeep Marie on 01-20-2025 L. pneumophila Ag Ql (U) [facility] Urine clarityOrdered By: Maeve Yoder on 01-20-2025 Clarity (U) Clear Clear [facility] Urine color determinationOrd ered By: Jeevan Yoder on 01-20-2025 Color (U) Straw Yellow [facility] Urine cultureOrdered By: Maeve Yoder on 01-20-2025 Bacteria identified Cx Nom (U) Proteus mirabilis Abnormal [facility] Urine glucose detectionOrder ed By: Jeevan Yoder on 01-20-2025 Glucose Ql (U) 1000 mg/dl High Normal [facility] Urine leukocyte esterase det ection by dipstickOrdered By: Jeevan Yoder on 01-20-2025 Leukocyte esterase Test strip Ql (U) Negative Negative [facility] Urine pHOrdered By: Jeevan Frey ndeforest on 01-20-2025 pH (U) 6.0 [pH] 5.0 - 8.0 [facility] Urine sediment bacteria coun t by microscopy (number/high power field)Ordered By: Jeevan Yoder on 01-20-2025 Bacteria LM.HPF (Urine sed) [#/Area] 0 /[HPF] None Seen [facility] Urine specific gravity measu rementOrdered By: Jeevan Yoder on 01-20-2025 Specific gravity (U) [Rel density] 1.010 1.002-1.030 [facility] Urine urobilinogen measureme ntOrdered By: Jeevan Yoder on 01-20-2025 Urobilinogen Ql (U) Normal mg/dl Normal [facility] White blood cell countOrdere d By: Jeevan Yoder on 01-20-2025 White blood cell count 0-5 SEEN /hpf 0-5 [facility] Anion gap in Serum or Plasma Ordered By: Ramone Smiley on 01-19-2025 Anion gap [Moles/Vol] 14 mmol/L 5-15 [facility] BUN/creatinine ratioOrdered By: Ramone Smiley on 01-19-2025 Urea nitrogen/Creatinine [Mass ratio] 7.7 mg/mg Low 10-20 [facility] Bilirubin, totalOrdered By: Ramone Smiley on 01-19-2025 Bilirubin [Mass/Vol] 0.25 mg/dL 0.00-1.30 [facility] CBC-Complete Blood Cnt No Di ffon 01-19-2025 Erythrocyte distribution width (RBC) [Ratio] 16.0 % High 11.6-14.6 [facility] Comment on above: Order Comment: Order Date: 01/19/25Order Info: [id number] - CBC Performed By: #### L 500.4050, L501.5200, L100.0500 ####[facility] [address] [place], [address] Hematocrit (Bld) [Volume fraction] 35.3 % Low 37-47 [facility] Comment on above: Order Comment: Order Date: 01/19/25Order Info: [id number] - CBC Performed By: #### L 500.4050, L501.5200, L100.0500 ####[facility] [address] [place], [address] Hemoglobin (Bld) [Mass/Vol] 10.9 g/dL Low 12.0-15.0 [facility] Comment on above: Order Comment: Order Date: 01/19/25Order Info: [id number] - CBC Performed By: #### L 500.4050, L501.5200, L100.0500 ####[facility] [address] [place], [address] MCH (RBC) [Entitic mass] 27.7 pg Normal 27.0-32.0 [facility] Comment on above: Order Comment: Order Date: 01/19/25Order Info: [id number] - CBC Performed By: #### L 500.4050, L501.5200, L100.0500 ####[facility] [address] [place], [address] MCHC (RBC) [Mass/Vol] 30.9 g/dL Low 32-36 [facility] Comment on above: Order Comment: Order Date: 01/19/25Order Info: [id number] - CBC Performed By: #### L 500.4050, L501.5200, L100.0500 ####[facility] [address] [place], [address] MCV (RBC) [Entitic vol] 89.6 fL Normal 81-99 [facility] Comment on above: Order Comment: Order Date: 01/19/25Order Info: [id number] - CBC Performed By: #### L 500.4050, L501.5200, L100.0500 ####[facility] [address] [place], [address] Platelet mean volume (Bld) [Entitic vol] 11.6 fL Normal 6.2-12.0 [facility] Comment on above: Order Comment: Order Date: 01/19/25Order Info: [id number] - CBC Performed By: #### L 500.4050, L501.5200, L100.0500 ####[facility] [address] [place], [address] Platelets (Bld) [#/Vol] 253 10*3/uL Normal 150-450 [facility] Comment on above: Order Comment: Order Date: 01/19/25Order Info: [id number] - CBC Performed By: #### L 500.4050, L501.5200, L100.0500 ####[facility] [address] [place], [address] RBC (Bld) [#/Vol] 3.94 10*6/uL Low 4.2-5.4 [facility] Comment on above: Order Comment: Order Date: 01/19/25Order Info: [id number] - CBC Performed By: #### L 500.4050, L501.5200, L100.0500 ####[facility] [address] [place], [address] RDW SD 52.7 fl High 35.1-43.9 [facility] Comment on above: Order Comment: Order Date: 01/19/25Order Info: [id number] - CBC Performed By: #### L 500.4050, L501.5200, L100.0500 ####[facility] [address] [place], [address] WBC (Bld) [#/Vol] 8.3 10*3/uL Normal 4.4-11.0 [facility] Comment on above: Order Comment: Order Date: 01/19/25Order Info: [id number] - CBC Performed By: #### L 500.4050, L501.5200, L100.0500 ####[facility] [address] [place], [address] Carbon dioxide, total [Moles /volume] in Central venous bloodOrdered By: Ramone Smiley on 01-19-2025 CO2 [Moles/Vol] 27.2 mmol/L 21.0-32.0 [facility] Chloride assayOrdered By: Richar Smiley on 01-19-2025 Chloride [Moles/Vol] 96 mmol/L Low 98-108 [facility] Comprehensive Metabolic Prof ilon 01-19-2025 Albumin [Mass/Vol] 3.4 g/dL Normal 3.4-4.8 [facility] Comment on above: Order Comment: Order Date: 01/19/25Order Info: [id number] - CMPOrder Info: [id number] - MG Performed By: #### L 500.4050, L501.5200, L100.0500 ####[facility] [address] [place], [address] Albumin/Globulin [Mass ratio] 0.9 {ratio} Normal 0.9-2.4 [facility] Comment on above: Order Comment: Order Date: 01/19/25Order Info: [id number] - CMPOrder Info: [id number] - MG Performed By: #### L 500.4050, L501.5200, L100.0500 ####[facility] [address] [place], [address] ALK PHOS 123 U/L High 35-104 [facility] Comment on above: Order Comment: Order Date: 01/19/25Order Info: [id number] - CMPOrder Info: [id number] - MG Performed By: #### L 500.4050, L501.5200, L100.0500 ####[facility] [address] [place], [address] ALT [Catalytic activity/Vol] 18 U/L Normal <=34 [facility] Comment on above: Order Comment: Order Date: 01/19/25Order Info: [id number] - CMPOrder Info: [id number] - MG Performed By: #### L 500.4050, L501.5200, L100.0500 ####[facility] [address] [place], [address] AST [Catalytic activity/Vol] 25 U/L Normal <=31 [facility] Comment on above: Order Comment: Order Date: 01/19/25Order Info: [id number] - CMPOrder Info: [id number] - MG Performed By: #### L 500.4050, L501.5200, L100.0500 ####[facility] [address] [place], [address] Bilirubin [Mass/Vol] 0.25 mg/dL Normal 0.00-1.30 [facility] Comment on above: Order Comment: Order Date: 01/19/25Order Info: [id number] - CMPOrder Info: [id number] - MG Performed By: #### L 500.4050, L501.5200, L100.0500 ####[facility] [address] [place], [address] BUN/CRE 7.7 RATIO Low 10-20 [facility] Comment on above: Order Comment: Order Date: 01/19/25Order Info: [id number] - CMPOrder Info: [id number] - MG Performed By: #### L 500.4050, L501.5200, L100.0500 ####[facility] [address] [place], [address] Calcium [Mass/Vol] 10.4 mg/dL Normal 7.6-11.0 [facility] Comment on above: Order Comment: Order Date: 01/19/25Order Info: [id number] - CMPOrder Info: [id number] - MG Performed By: #### L 500.4050, L501.5200, L100.0500 ####[facility] [address] [place], [address] Chloride [Moles/Vol] 96 mmol/L Low 98-108 [facility] Comment on above: Order Comment: Order Date: 01/19/25Order Info: [id number] - CMPOrder Info: [id number] - MG Performed By: #### L 500.4050, L501.5200, L100.0500 ####[facility] [address] [place], [address] CO2 [Moles/Vol] 27.2 mmol/L Normal 21.0-32.0 [facility] Comment on above: Order Comment: Order Date: 01/19/25Order Info: [id number] - CMPOrder Info: [id number] - MG Performed By: #### L 500.4050, L501.5200, L100.0500 ####[facility] [address] [place], [address] Creatinine [Mass/Vol] 1.06 mg/dL Normal 0.70-1.20 [facility] Comment on above: Order Comment: Order Date: 01/19/25Order Info: [id number] - CMPOrder Info: [id number] - MG Performed By: #### L 500.4050, L501.5200, L100.0500 ####[facility] [address] [place], [address] GAP 14 Normal 5-15 [facility] Comment on above: Order Comment: Order Date: 01/19/25Order Info: [id number] - CMPOrder Info: [id number] - MG Performed By: #### L 500.4050, L501.5200, L100.0500 ####[facility] [address] [place], [address] GFR/1.73 sq M.predicted among non-blacks MDRD (S/P/Bld) [Vol rate/Area] 53 mL/min/{1.73_m2} Low >60 [facility] Comment on above: Order Comment: Order Date: 01/19/25Order Info: [id number] - CMPOrder Info: [id number] - MG Result Comment: mL/m in/1.73m2 CKD-EPI Creatinine Equation (2020) Performed By: #### L 500.4050, L501.5200, L100.0500 ####[facility] [address] [place], [address] Globulin (S) [Mass/Vol] 3.9 g/dL Normal 2.2-4.2 [facility] Comment on above: Order Comment: Order Date: 01/19/25Order Info: [id number] - CMPOrder Info: [id number] - MG Performed By: #### L 500.4050, L501.5200, L100.0500 ####[facility] [address] [place], [address] Glucose [Mass/Vol] 288 mg/dL High 70-99 [facility] Comment on above: Order Comment: Order Date: 01/19/25Order Info: [id number] - CMPOrder Info: [id number] - MG Performed By: #### L 500.4050, L501.5200, L100.0500 ####[facility] [address] [place], [address] Potassium [Moles/Vol] 3.3 mmol/L Normal 3.3-5.1 [facility] Comment on above: Order Comment: Order Date: 01/19/25Order Info: [id number] - CMPOrder Info: [id number] - MG Performed By: #### L 500.4050, L501.5200, L100.0500 ####[facility] [address] [place], [place], [address] Sodium [Moles/Vol] 137 mmol/L Normal 133-145 [facility] Comment on above: Order Comment: Order Date: 01/19/25Order Info: [id number] - CMPOrder Info: [id number] - MG Performed By: #### L 500.4050, L501.5200, L100.0500 ####[facility] [address] [place], [place], [address] T PROT 7.3 g/dL Normal 5.9-8.4 [facility] Comment on above: Order Comment: Order Date: 01/19/25Order Info: [id number] - CMPOrder Info: [id number] - MG Performed By: #### L 500.4050, L501.5200, L100.0500 ####[facility] [address] [place], [address] Urea nitrogen [Mass/Vol] 8 mg/dL Normal 4-19 [facility] Comment on above: Order Comment: Order Date: 01/19/25Order Info: [id number] - CMPOrder Info: [id number] - MG Performed By: #### L 500.4050, L501.5200, L100.0500 ####[facility] [address] [place], [address] Erythrocyte distribution wid th ratioOrdered By: Ramone Smiley on 01-19-2025 Erythrocyte distribution width (RBC) [Ratio] 16.0 % High 11.6-14.6 [facility] Erythrocyte distribution wid th standard deviationOrdered By: Ramone Smiley on 01-19-2025 Erythrocyte distribution width (RBC) [Ratio] 52.7 fl High 35.1-43.9 [facility] Glomerular filtration rate ( GFR) estimation/1.73 sq m using serum, plasma, or whole bOrdered By: Ramone Smiley on 01-19-2025 GFR/1.73 sq M.predicted among non-blacks MDRD (S/P/Bld) [Vol rate/Area] 53 mL/min/{1.73_m2} Low >60 [facility] Hematocrit Auto (Bld) [Volum e fraction]Ordered By: Ramone Smiley on 01-19-2025 Hematocrit (Bld) [Volume fraction] 35.3 % Low 37-47 [facility] Hemoglobin measurementOrdere d By: Ramone Smiley on 01-19-2025 Hemoglobin (Bld) [Mass/Vol] 10.9 g/dL Low 12.0-15.0 [facility] L503.7505on 01-19-2025 Natriuretic peptide B (Bld) [Mass/Vol] 3173 pg/mL High <=1800 [facility] Comment on above: Order Comment: Order Date: 01/19/25Order Info: [id number] - CMPOrder Info: - MG Result Comment: Hear t Failure Unlikely: < 300 pg/mLHeart Failure Likely< 50 Years: > 450 pg/mL50-75 Years: > 900 pg/mL>75 Years: > 1800 pg/mL Performed By: #### L 503.7505 ####[facility] [address] [place], [place], [address] MCV (mean corpuscular volume ) determinationOrdered By: Ramone Smiley on 01-19-2025 MCV (RBC) [Entitic vol] 89.6 fL 81-99 [address] [facility] Magnesiumon 01-19-2025 Magnesium [Mass/Vol] 2.3 mg/dL High 1.5-2.2 [facility] Comment on above: Order Comment: Order Date: 01/19/25Order Info: [id number] - CMPOrder Info: - MG Performed By: #### L 500.4050, L501.5200, L100.0500 ####[facility] [address] [place], [place], [id number] Magnesium measurement (mass/ volume)Ordered By: Ramone Smiley on 01-19-2025 Magnesium (Unsp spec) [Mass/Vol] 2.3 mg/dL High 1.5-2.2 [facility] Mean corpuscular hemoglobin (MCH) determinationOrdered By: Ramone Smiley on 01-19-2025 MCH (RBC) [Entitic mass] 27.7 pg 27.0-32.0 [facility] Natriuretic peptide.B prohor hayley N-Terminal [Mass/volume] in Serum or PlasmaOrdered By: Ramone Smiley on 01-19-2025 Natriuretic peptide.B prohormone N-Terminal [Mass/Vol] 3173 pg/mL High <1800 [facility] No Panel InformationOrdered By: Ramone Smiley on 01-19-2025 25 U/L <32 [facility] Platelet countOrdered By: Richar Smiley on 01-19-2025 Platelets (Bld) [#/Vol] 253 10*3/uL 150-450 [facility] Potassium measurement (mass/ volume)Ordered By: Ramone Smiley on 01-19-2025 Potassium (Unsp spec) [Mass/Vol] 3.3 mmol/L 3.3-5.1 [facility] RBC Auto (Bld) [#/Vol]Ordere d By: Ramone Smiley on 01-19-2025 RBC (Bld) [#/Vol] 3.94 10*6/uL Low 4.2-5.4 [facility] Serum creatinine measurement (mass/volume)Ordered By: Ramone Smiley on 01-19-2025 Creatinine [Mass/Vol] 1.06 mg/dL 0.70-1.20 [facility] Serum globulin measurementOr dered By: Ramone Smiley on 01-19-2025 Globulin (S) [Mass/Vol] 3.9 g/dL 2.2-4.2 [facility] Serum glucose measurement (m ass/volume)Ordered By: Ramone Smiley on 01-19-2025 Glucose [Mass/Vol] 288 mg/dL High 70-99 [facility] Serum or plasma alanine kelley otransferase (ALT) measurementOrdered By: Ramone Smiley on 01-19-2025 ALT [Catalytic activity/Vol] 18 U/L <35 [facility] Serum or plasma albumin mealnie urement (mass/volume)Ordered By: Ramone Smiley on 01-19-2025 Albumin [Mass/Vol] 3.4 g/dL 3.4-4.8 [facility] Serum or plasma albumin/glob ulin mass ratioOrdered By: Ramone Smiley on 01-19-2025 Albumin/Globulin [Mass ratio] 0.9 {ratio} 0.9-2.4 [facility] Serum or plasma alkaline lissa sphatase measurementOrdered By: Ramone Smiley on 01-19-2025 ALP [Catalytic activity/Vol] 123 U/L High 35-104 [facility] Serum or plasma calcium melanie urement (mass/volume)Ordered By: Ramone Smiley on 01-19-2025 Calcium [Mass/Vol] 10.4 mg/dL 7.6-11.0 [facility] Serum or plasma urea nitroge n measurement (mass/volume)Ordered By: Ramone Smiley on 01-19-2025 Urea nitrogen [Mass/Vol] 8 mg/dL 4-19 [facility] Sodium levelOrdered By: Ramone Smiley on 01-19-2025 Sodium [Moles/Vol] 137 mmol/L 133-145 [facility] Total proteinOrdered By: Lilliam Smiley on 01-19-2025 Protein [Mass/Vol] 7.3 g/dL 5.9-8.4 [facility] White blood cell (WBC) count Ordered By: Ramone Smiley on 01-19-2025 WBC (Bld) [#/Vol] 8.3 10*3/uL 4.4-11.0 [facility] 12 Lead EKGon 01-15-2025 12 Lead EKG Normal [facility] Absolute lymphocyte countOrd ered By: Jeevan Yoder on 01-15-2025 Lymphocytes Auto (Unsp spec) [#/Vol] 1.92 10*3/uL 0.83-4.51 [facility] Absolute neutrophil countOrd ered By: Jeevan Yoder on 01-15-2025 Neutrophils (Bld) [#/Vol] 7.7 10*3/uL 2.0-7.7 [facility] Anion gap in Serum or Plasma Ordered By: Jeevan Yoder on 01-15-2025 Anion gap [Moles/Vol] 11 mmol/L 5-15 [facility] Automated lymphocyte count a s percentage of total leukocytesOrdered By: Jeevan Yoder on 01-15-2025 Lymphocytes/100 WBC Auto (Unsp spec) 18.1 % Low 19-41 [facility] BUN/creatinine ratioOrdered By: Jeevan Yoder on 01-15-2025 Urea nitrogen/Creatinine [Mass ratio] 16.6 mg/mg - [facility] Basic Metabolic Profile (BMP )on 01-15-2025 BUN/CRE 16.6 RATIO Normal - [facility] Comment on above: Performed By: #### L 501.4021, L500.2500, L100.0100 ####[facility] [address] [place], [address] Calcium [Mass/Vol] 9.6 mg/dL Normal 7.6-11.0 [facility] Comment on above: Performed By: #### L 501.4021, L500.2500, L100.0100 ####[facility] [address] [place], [address] Chloride [Moles/Vol] 102 mmol/L Normal 98-108 [facility] Comment on above: Performed By: #### L 501.4021, L500.2500, L100.0100 ####[facility] [address] [place], [address] CO2 [Moles/Vol] 25.0 mmol/L Normal 21.0-32.0 [facility] Comment on above: Performed By: #### L 501.4021, L500.2500, L100.0100 ####[facility] [address] [place], [address] Creatinine [Mass/Vol] 0.92 mg/dL Normal 0.70-1.20 [facility] Comment on above: Performed By: #### L 501.4021, L500.2500, L100.0100 ####[facility] [address] [place], [address] ECRCL 48.84 ml/min Low 50-250 [facility] Comment on above: Performed By: #### L 501.4021, L500.2500, L100.0100 ####[facility] [address] [place], [address] GAP 11 Normal 5-15 [facility] Comment on above: Performed By: #### L 501.4021, L500.2500, L100.0100 ####[facility] [address] [place], [address] GFR/1.73 sq M.predicted among non-blacks MDRD (S/P/Bld) [Vol rate/Area] 63 mL/min/{1.73_m2} Normal >60 [facility] Comment on above: Result Comment: mL/m in/1.73m2 CKD-EPI Creatinine Equation (2020) Performed By: #### L 501.4021, L500.2500, L100.0100 ####[facility] [address] [place], [address] Glucose [Mass/Vol] 144 mg/dL High 70-99 [facility] Comment on above: Performed By: #### L 501.4021, L500.2500, L100.0100 ####[facility] [address] [place], [address] Potassium [Moles/Vol] 3.7 mmol/L Normal 3.3-5.1 [facility] Comment on above: Performed By: #### L 501.4021, L500.2500, L100.0100 ####[facility] [address] [place], [address] Sodium [Moles/Vol] 138 mmol/L Normal 133-145 [facility] Comment on above: Performed By: #### L 501.4021, L500.2500, L100.0100 ####[facility] [address] [place], [address] Urea nitrogen [Mass/Vol] 15 mg/dL Normal 4-19 [facility] Comment on above: Performed By: #### L 501.4021, L500.2500, L100.0100 ####[facility] [address] [place], [address] Basophil percentageOrdered B y: Jeevan Yoder on 01-15-2025 Basophils/100 WBC (Bld) 0.3 % 0-1 [facility] CBC W/Diff, Automatedon 12-29 Absolute Lymph 1.92 X10 3/uL Normal 0.83-4.51 [facility] Comment on above: Performed By: #### L 501.4021, L500.2500, L100.0100 ####[facility] [address] [place], [address] Absolute Neut 7.7 X10 3/uL Normal 2.0-7.7 [facility] Comment on above: Performed By: #### L 501.4021, L500.2500, L100.0100 ####[facility] [address] [place], [address] Basophils/100 WBC (Bld) 0.3 % Normal 0-1 [facility] Comment on above: Performed By: #### L 501.4021, L500.2500, L100.0100 ####[facility] [address] [place], [address] Eosinophils/100 WBC (Bld) 1.6 % Normal 0-5 [facility] Comment on above: Performed By: #### L 501.4021, L500.2500, L100.0100 ####[facility] [address] [place], [address] Erythrocyte distribution width (RBC) [Ratio] 16.3 % High 11.6-14.6 [facility] Comment on above: Performed By: #### L 501.4021, L500.2500, L100.0100 ####[facility] [address] [place], [address] Hematocrit (Bld) [Volume fraction] 34.3 % Low 37-47 [facility] Comment on above: Performed By: #### L 501.4021, L500.2500, L100.0100 ####[facility] [address] [place], [address] Hemoglobin (Bld) [Mass/Vol] 11.0 g/dL Low 12.0-15.0 [facility] Comment on above: Performed By: #### L 501.4021, L500.2500, L100.0100 ####[facility] [address] [place], [address] IG% 0.400 Normal 0.0-0.9 [facility] Comment on above: Result Comment: IG% - Immature Granulocytes (promyelocytes, myelocytes andmetamyelocytes) > 1% indicates that a LEFT SHIFT is Present. Performed By: #### L 501.4021, L500.2500, L100.0100 ####[facility] [address] [place], [address] Lymphocytes/100 WBC (Bld) 18.1 % Low 19-41 [facility] Comment on above: Performed By: #### L 501.4021, L500.2500, L100.0100 ####[facility] [address] [place], [address] MCH (RBC) [Entitic mass] 27.8 pg Normal 27.0-32.0 [facility] Comment on above: Performed By: #### L 501.4021, L500.2500, L100.0100 ####[facility] [address] [place], [address] MCHC (RBC) [Mass/Vol] 32.1 g/dL Normal 32-36 [facility] Comment on above: Performed By: #### L 501.4021, L500.2500, L100.0100 ####[facility] [address] [place], [address] MCV (RBC) [Entitic vol] 86.6 fL Normal 81-99 [facility] Comment on above: Performed By: #### L 501.4021, L500.2500, L100.0100 ####[facility] [address] [place], [address] Monocytes/100 WBC (Bld) 6.9 % Normal 0-10 [facility] Comment on above: Performed By: #### L 501.4021, L500.2500, L100.0100 ####[facility] [address] [place], [address] Neutrophils/100 WBC (Bld) 72.7 % High 47-70 [facility] Comment on above: Performed By: #### L 501.4021, L500.2500, L100.0100 ####[facility] [address] [place], [address] Nucleated RBC (Bld) [#/Vol] 0 10*3/uL Normal 0-5 [facility] Comment on above: Performed By: #### L 501.4021, L500.2500, L100.0100 ####[facility] [address] [place], [address] Platelet mean volume (Bld) [Entitic vol] 10.5 fL Normal 6.2-12.0 [facility] Comment on above: Performed By: #### L 501.4021, L500.2500, L100.0100 ####[facility] [address] [place], [address] Platelets (Bld) [#/Vol] 256 10*3/uL Normal 150-450 [facility] Comment on above: Performed By: #### L 501.4021, L500.2500, L100.0100 ####[facility] [address] [place], [address] RBC (Bld) [#/Vol] 3.96 10*6/uL Low 4.2-5.4 [facility] Comment on above: Performed By: #### L 501.4021, L500.2500, L100.0100 ####[facility] [address] [place], [address] RDW SD 50.8 fl High 35.1-43.9 [facility] Comment on above: Performed By: #### L 501.4021, L500.2500, L100.0100 ####[facility] [address] [place], [address] WBC (Bld) [#/Vol] 10.6 10*3/uL Normal 4.4-11.0 [facility] Comment on above: Performed By: #### L 501.4021, L500.2500, L100.0100 ####[facility] [address] [place], [address] Carbon dioxide, total [Moles /volume] in Central venous bloodOrdered By: Jeevan Yoder on 01-15-2025 CO2 [Moles/Vol] 25.0 mmol/L 21.0-32.0 [facility] Chest PA and Lateralon 01-15 Chest PA and Lateral Normal [facility] Chloride assayOrdered By: Kenny Yoder on 01-15-2025 Chloride [Moles/Vol] 102 mmol/L 98-108 [facility] Emergency Department Summary on 01-15-2025 Emergency Department Summary Normal [facility] Eosinophil percentageOrdered By: Jeevan Yoder on 01-15-2025 Eosinophils/100 WBC (Bld) 1.6 % 0-5 [facility] Erythrocyte distribution wid th ratioOrdered By: Jeevan Yoder on 01-15-2025 Erythrocyte distribution width (RBC) [Ratio] 16.3 % High 11.6-14.6 [facility] Erythrocyte distribution wid th standard deviationOrdered By: Jeevan Yoder on 01-15-2025 Erythrocyte distribution width (RBC) [Ratio] 50.8 fl High 35.1-43.9 [facility] Glomerular filtration rate ( GFR) estimation/1.73 sq m using serum, plasma, or whole bOrdered By: Jeevan Yoder on 01-15-2025 GFR/1.73 sq M.predicted among non-blacks MDRD (S/P/Bld) [Vol rate/Area] 63 mL/min/{1.73_m2} >60 [facility] Comment on above: mL/min/1.73m2 CKD-EP I Creatinine Equation (2020) Hematocrit Auto (Bld) [Volum e fraction]Ordered By: Jeevan Yoder on 01-15-2025 Hematocrit (Bld) [Volume fraction] 34.3 % Low 37-47 [facility] Hemoglobin measurementOrdere d By: Jeevan Yoder on 01-15-2025 Hemoglobin (Bld) [Mass/Vol] 11.0 g/dL Low 12.0-15.0 [facility] Immature granulocytes/100 WB C Auto (Bld)Ordered By: Jeevan Yoder on 01-15-2025 Immature granulocytes/100 WBC (Bld) 0.400 % 0.0-0.9 [facility] Comment on above: IG% - Immature Granu locytes (promyelocytes, myelocytes and metamyelocytes) > 1% indicates that a LEFT SHIFT is Present. L499.0042on 01-15-2025 Trop T High Sen 46 ng/L High <=14 [facility] Comment on above: Performed By: #### L 499.0042 ####[facility] [address] [place], [address] L499.0043on 01-15-2025 Trop T High Sen Normal <=14 [facility] Comment on above: Result Comment: DEP ED Performed By: #### L 499.0043 ####[facility] [address] [place], [address] L501.4021on 01-15-2025 Trop T High Sen 46 ng/L High <=14 [facility] Comment on above: Performed By: #### L 501.4021, L500.2500, L100.0100 ####[facility] [address] [place], [address] L503.7505on 01-15-2025 Natriuretic peptide B (Bld) [Mass/Vol] 4224 pg/mL High <=1800 [facility] Comment on above: Result Comment: Hear t Failure Unlikely: < 300 pg/mLHeart Failure Likely< 50 Years: > 450 pg/mL50-75 Years: > 900 pg/mL>75 Years: > 1800 pg/mL Performed By: #### L 503.7505 ####[facility] [address] [place], [address] MCV (mean corpuscular volume ) determinationOrdered By: Jeevan oYder on 01-15-2025 MCV (RBC) [Entitic vol] 86.6 fL 81-99 [facility] Mean corpuscular hemoglobin (MCH) determinationOrdered By: Jeevan Yoder on 01-15-2025 MCH (RBC) [Entitic mass] 27.8 pg 27.0-32.0 [facility] Mean corpuscular hemoglobin concentration (MCHC) determinationOrdered By: Jeevan Yoder on 01-15-2025 MCHC (RBC) [Mass/Vol] 32.1 g/dL 32-36 [facility] Mean platelet volume determi nationOrdered By: Jeevan Yoder on 01-15-2025 Platelet mean volume (Bld) [Entitic vol] 10.5 fL 6.2-12.0 [facility] Monocyte percentageOrdered B y: Jeevan Yoder on 01-15-2025 Monocytes/100 WBC (Bld) 6.9 % 0-10 [facility] Natriuretic peptide.B prohor hayley N-Terminal [Mass/volume] in Serum or PlasmaOrdered By: Jeevan Yoder on 01-15-2025 Natriuretic peptide.B prohormone N-Terminal [Mass/Vol] 4224 pg/mL High <1800 [facility] Comment on above: Heart Failure Unlike ly: < 300 pg/mLHeart Failure Likely< 50 Years: > 450 pg/mL50-75 Years: > 900 pg/mL>75 Years: > 1800 pg/mL Neutrophil percentageOrdered By: Jeevan Yoder on 01-15-2025 Neutrophils/100 WBC (Bld) 72.7 % High 47-70 [facility] Nucleated red blood cell per centageOrdered By: Jeevan Yoder on 01-15-2025 Nucleated RBC/100 WBC (Bld) [Ratio] 0 % 0-5 [facility] Platelet countOrdered By: Kenny Yoder on 01-15-2025 Platelets (Bld) [#/Vol] 256 10*3/uL 150-450 [facility] Potassium measurement (mass/ volume)Ordered By: Jeevan Yoder on 01-15-2025 Potassium (Unsp spec) [Mass/Vol] 3.7 mmol/L 3.3-5.1 [facility] RBC Auto (Bld) [#/Vol]Ordere d By: Jeevan Yoder on 01-15-2025 RBC (Bld) [#/Vol] 3.96 10*6/uL Low 4.2-5.4 [facility] Serum creatinine measurement (mass/volume)Ordered By: Jeevan Yoder on 01-15-2025 Creatinine [Mass/Vol] 0.92 mg/dL 0.70-1.20 [facility] Serum glucose measurement (m ass/volume)Ordered By: Jeevan Yoder on 01-15-2025 Glucose [Mass/Vol] 144 mg/dL High 70-99 [facility] Serum or plasma calcium melanie urement (mass/volume)Ordered By: Jeevan Yoder on 01-15-2025 Calcium [Mass/Vol] 9.6 mg/dL 7.6-11.0 [facility] Serum or plasma urea nitroge n measurement (mass/volume)Ordered By: Jeevan Yoder on 01-15-2025 Urea nitrogen [Mass/Vol] 15 mg/dL 4-19 [facility] Sodium levelOrdered By: Marcelino Yoder on 01-15-2025 Sodium [Moles/Vol] 138 mmol/L 133-145 [facility] Troponin T.cardiac [Mass/vol ume] in Serum or Plasma by High sensitivity methodOrdered By: Jeevan Yoder on 01-15-2025 Troponin T.cardiac High sensitivity method [Mass/Vol] 46 ng/L High <14 [facility] Troponin T.cardiac High sensitivity method [Mass/Vol] 46 ng/L High <14 [facility] White blood cell (WBC) count Ordered By: Jeevan Yoder on 01-15-2025 WBC (Bld) [#/Vol] 10.6 10*3/uL 4.4-11.0 [facility] 12 Lead EKGon 01-07-2025 12 Lead EKG Normal [facility] Absolute lymphocyte countOrd ered By: Ethan Darnell on 01-07-2025 Lymphocytes Auto (Unsp spec) [#/Vol] 2.89 10*3/uL 0.83-4.51 [facility] Absolute neutrophil countOrd ered By: Ethan Darnell on 01-07-2025 Neutrophils (Bld) [#/Vol] 5.3 10*3/uL 2.0-7.7 [facility] Anion gap in Serum or Plasma Ordered By: Ethan Darnell on 01-07-2025 Anion gap [Moles/Vol] 11 mmol/L 01-12 [facility] Automated lymphocyte count a s percentage of total leukocytesOrdered By: Ethan Darnell on 01-07-2025 Lymphocytes/100 WBC Auto (Unsp spec) 31.8 % - [facility] BUN/creatinine ratioOrdered By: Ethan Darnell on 01-07-2025 Urea nitrogen/Creatinine [Mass ratio] 15.5 mg/mg - [facility] Basic Metabolic Profile (BMP )on 01-07-2025 BUN/CRE 15.5 RATIO Normal - [facility] Comment on above: Performed By: #### L 500.2500, L100.0100 ####[facility] [address] [place], [address] Calcium [Mass/Vol] 10.3 mg/dL Normal 7.6-11.0 [facility] Comment on above: Performed By: #### L 500.2500, L100.0100 ####[facility] [address] [place], [address] Chloride [Moles/Vol] 99 mmol/L Normal 98-108 [facility] Comment on above: Performed By: #### L 500.2500, L100.0100 ####[facility] [address] [place], [address] CO2 [Moles/Vol] 22.5 mmol/L Normal 21.0-32.0 [facility] Comment on above: Performed By: #### L 500.2500, L100.0100 ####[facility] [address] [place], [address] Creatinine [Mass/Vol] 0.90 mg/dL Normal 0.70-1.20 [facility] Comment on above: Performed By: #### L 500.2500, L100.0100 ####[facility] [address] [place], [address] ECRCL 49.31 ml/min Low 50-250 [facility] Comment on above: Performed By: #### L 500.2500, L100.0100 ####[facility] [address] [place], [address] GAP 11 Normal 5-15 [facility] Comment on above: Performed By: #### L 500.2500, L100.0100 ####[facility] [address] [place], [address] GFR/1.73 sq M.predicted among non-blacks MDRD (S/P/Bld) [Vol rate/Area] 64 mL/min/{1.73_m2} Normal >60 [facility] Comment on above: Result Comment: mL/m in/1.73m2 CKD-EPI Creatinine Equation (2020) Performed By: #### L 500.2500, L100.0100 ####[facility] [address] [place], [address] Glucose [Mass/Vol] 321 mg/dL High 70-99 [facility] Comment on above: Performed By: #### L 500.2500, L100.0100 ####[facility] [address] [place], [address] Potassium [Moles/Vol] 3.8 mmol/L Normal 3.3-5.1 [facility] Comment on above: Result Comment: Hemo lysis present, Results??could be affected.?? Performed By: #### L 500.2500, L100.0100 ####[facility] [address] [place], [address] Sodium [Moles/Vol] 133 mmol/L Normal 133-145 [facility] Comment on above: Performed By: #### L 500.2500, L100.0100 ####[facility] [address] [place], [address] Urea nitrogen [Mass/Vol] 14 mg/dL Normal 4-19 [facility] Comment on above: Performed By: #### L 500.2500, L100.0100 ####[facility] [address] [place], [address] Basophil percentageOrdered B y: Ethan Darnell on 01-07-2025 Basophils/100 WBC (Bld) 0.5 % 0-1 [facility] Bedside Glucoseon 01-07-2025 FINGERSTICK GLU 316 mg/dL High 74-106 [facility] Comment on above: Result Comment: KATARINA GARY OF PATIENT CARE PER NURSING PROTOCOL Performed By: #### L 501.080 ####[facility] [address] [place], [address] CBC W/Diff, Automatedon 12-29 Absolute Lymph 2.89 X10 3/uL Normal 0.83-4.51 [facility] Comment on above: Performed By: #### L 500.2500, L100.0100 ####[facility] [address] [place], [address] Absolute Neut 5.3 X10 3/uL Normal 2.0-7.7 [facility] Comment on above: Performed By: #### L 500.2500, L100.0100 ####[facility] [address] [place], [address] Basophils/100 WBC (Bld) 0.5 % Normal 0-1 [facility] Comment on above: Performed By: #### L 500.2500, L100.0100 ####[facility] [address] [place], [address] Eosinophils/100 WBC (Bld) 1.9 % Normal 0-5 [facility] Comment on above: Performed By: #### L 500.2500, L100.0100 ####[facility] [address] [place], [address] Erythrocyte distribution width (RBC) [Ratio] 15.7 % High 11.6-14.6 [facility] Comment on above: Performed By: #### L 500.2500, L100.0100 ####[facility] [address] [place], [address] Hematocrit (Bld) [Volume fraction] 34.0 % Low 37-47 [facility] Comment on above: Performed By: #### L 500.2500, L100.0100 ####[facility] [address] [place], [address] Hemoglobin (Bld) [Mass/Vol] 10.5 g/dL Low 12.0-15.0 [facility] Comment on above: Performed By: #### L 500.2500, L100.0100 ####[facility] [address] [place], [address] IG% 0.200 Normal 0.0-0.9 [facility] Comment on above: Result Comment: IG% - Immature Granulocytes (promyelocytes, myelocytes andmetamyelocytes) > 1% indicates that a LEFT SHIFT is Present. Performed By: #### L 500.2500, L100.0100 ####[facility] [address] [place], [address] Lymphocytes/100 WBC (Bld) 31.8 % Normal 19-41 [facility] Comment on above: Performed By: #### L 500.2500, L100.0100 ####[facility] [address] [place], [address] MCH (RBC) [Entitic mass] 26.9 pg Low 27.0-32.0 [facility] Comment on above: Performed By: #### L 500.2500, L100.0100 ####[facility] [address] [place], [address] MCHC (RBC) [Mass/Vol] 30.9 g/dL Low 32-36 [facility] Comment on above: Performed By: #### L 500.2500, L100.0100 ####[facility] [address] [place], [address] MCV (RBC) [Entitic vol] 87.0 fL Normal 81-99 [facility] Comment on above: Performed By: #### L 500.2500, L100.0100 ####[facility] [address] [place], [address] Monocytes/100 WBC (Bld) 7.6 % Normal 0-10 [facility] Comment on above: Performed By: #### L 500.2500, L100.0100 ####[facility] [address] [place], [address] Neutrophils/100 WBC (Bld) 58.0 % Normal 47-70 [facility] Comment on above: Performed By: #### L 500.2500, L100.0100 ####[facility] [address] [place], [address] Nucleated RBC (Bld) [#/Vol] 0 10*3/uL Normal 0-5 [facility] Comment on above: Performed By: #### L 500.2500, L100.0100 ####[facility] [address] [place], [address] Platelet mean volume (Bld) [Entitic vol] 11.1 fL Normal 6.2-12.0 [facility] Comment on above: Performed By: #### L 500.2500, L100.0100 ####[facility] [address] [place], [address] Platelets (Bld) [#/Vol] 237 10*3/uL Normal 150-450 [facility] Comment on above: Performed By: #### L 500.2500, L100.0100 ####[facility] [address] [place], [address] RBC (Bld) [#/Vol] 3.91 10*6/uL Low 4.2-5.4 [facility] Comment on above: Performed By: #### L 500.2500, L100.0100 ####[facility] [address] [place], [address] RDW SD 49.4 fl High 35.1-43.9 [facility] Comment on above: Performed By: #### L 500.2500, L100.0100 ####[facility] [address] [place], [address] WBC (Bld) [#/Vol] 9.1 10*3/uL Normal 4.4-11.0 [facility] Comment on above: Performed By: #### L 500.2500, L100.0100 ####[facility] [address] [place], [address] Carbon dioxide, total [Moles /volume] in Central venous bloodOrdered By: Ethan Darnell on 01-07-2025 CO2 [Moles/Vol] 22.5 mmol/L 21.0-32.0 [facility] Chest PA and Lateralon 01-07 Chest PA and Lateral Normal [facility] Chloride assayOrdered By: Albaro Darnell on 01-07-2025 Chloride [Moles/Vol] 99 mmol/L 98-108 [facility] Emergency Department Summary on 01-07-2025 Emergency Department Summary Normal [facility] Eosinophil percentageOrdered By: Ethan Darnell on 01-07-2025 Eosinophils/100 WBC (Bld) 1.9 % 0-5 [facility] Erythrocyte distribution wid th ratioOrdered By: Ethan Darnell on 01-07-2025 Erythrocyte distribution width (RBC) [Ratio] 15.7 % High 11.6-14.6 [facility] Erythrocyte distribution wid th standard deviationOrdered By: Ethan Darnell on 01-07-2025 Erythrocyte distribution width (RBC) [Ratio] 49.4 fl High 35.1-43.9 [facility] Glomerular filtration rate ( GFR) estimation/1.73 sq m using serum, plasma, or whole bOrdered By: Ethan Darnell on 01-07-2025 GFR/1.73 sq M.predicted among non-blacks MDRD (S/P/Bld) [Vol rate/Area] 64 mL/min/{1.73_m2} >60 [facility] Comment on above: mL/min/1.73m2 CKD-EP I Creatinine Equation (2020) Glucose measurement at bedsi deOrdered By: Ethan Darnell on 01-07-2025 Glucose [Mass/Vol] 316 mg/dL High 74-106 [facility] Comment on above: MANAGEMENT OF PATIEN T CARE PER NURSING PROTOCOL Hematocrit Auto (Bld) [Volum e fraction]Ordered By: Ethan Darnell on 01-07-2025 Hematocrit (Bld) [Volume fraction] 34.0 % Low 37-47 [facility] Hemoglobin measurementOrdere d By: Ethan Darnell on 01-07-2025 Hemoglobin (Bld) [Mass/Vol] 10.5 g/dL Low 12.0-15.0 [facility] Immature granulocytes/100 WB C Auto (Bld)Ordered By: Ethan Darnell on 01-07-2025 Immature granulocytes/100 WBC (Bld) 0.200 % 0.0-0.9 [facility] Comment on above: IG% - Immature Granu locytes (promyelocytes, myelocytes and metamyelocytes) > 1% indicates that a LEFT SHIFT is Present. Influenza virus A and B and SARS-CoV-2 (COVID-19) and Respiratory syncytial virus RNAOrdered By: Ethan Darnell on 01-07-2025 SARS-CoV-2 (COVID-19) RNA BEBETO+probe Ql (Unsp spec) [facility] M100.678on 01-07-2025 M100.678 SARS-CoV-2 (COVID 19) Negative INFLUENZA A Negative INFLUENZA B Negative RSV PCR Negative Normal [facility] Comment on above: Performed By: #### M 100.678 ####[facility] [address] [place], [address] MCV (mean corpuscular volume ) determinationOrdered By: Ethan Darnell on 01-07-2025 MCV (RBC) [Entitic vol] 87.0 fL 81-99 [facility] Mean corpuscular hemoglobin (MCH) determinationOrdered By: Ethan Darnell on 01-07-2025 MCH (RBC) [Entitic mass] 26.9 pg Low 27.0-32.0 [facility] Mean corpuscular hemoglobin concentration (MCHC) determinationOrdered By: Ethan Darnell on 01-07-2025 MCHC (RBC) [Mass/Vol] 30.9 g/dL Low 32-36 [facility] Mean platelet volume determi nationOrdered By: Ethan Darnell on 01-07-2025 Platelet mean volume (Bld) [Entitic vol] 11.1 fL 6.2-12.0 [facility] Monocyte percentageOrdered B y: Ethan Darnell on 01-07-2025 Monocytes/100 WBC (Bld) 7.6 % 0-10 [facility] Neutrophil percentageOrdered By: Ethan Darnell on 01-07-2025 Neutrophils/100 WBC (Bld) 58.0 % 47-70 [facility] Nucleated red blood cell per centageOrdered By: Ethan Darnell on 01-07-2025 Nucleated RBC/100 WBC (Bld) [Ratio] 0 % 0-5 [facility] Platelet countOrdered By: Albaro Darnell on 01-07-2025 Platelets (Bld) [#/Vol] 237 10*3/uL 150-450 [facility] Potassium measurement (mass/ volume)Ordered By: Ethan Darnell on 01-07-2025 Potassium (Unsp spec) [Mass/Vol] 3.8 mmol/L 3.3-5.1 [facility] Comment on above: Hemolysis present, R esults could be affected. RBC Auto (Bld) [#/Vol]Ordere d By: Ethan Darnell on 01-07-2025 RBC (Bld) [#/Vol] 3.91 10*6/uL Low 4.2-5.4 [facility] Serum creatinine measurement (mass/volume)Ordered By: Ethan Darnell on 01-07-2025 Creatinine [Mass/Vol] 0.90 mg/dL 0.70-1.20 [facility] Serum glucose measurement (m ass/volume)Ordered By: Ethan Darnell on 01-07-2025 Glucose [Mass/Vol] 321 mg/dL High 70-99 [facility] Serum or plasma calcium melanie urement (mass/volume)Ordered By: Ethan Darnell on 01-07-2025 Calcium [Mass/Vol] 10.3 mg/dL 7.6-11.0 [facility] Serum or plasma urea nitroge n measurement (mass/volume)Ordered By: Ethan Darnell on 01-07-2025 Urea nitrogen [Mass/Vol] 14 mg/dL 4-19 [facility] Sodium levelOrdered By: Ethan Darnell on 01-07-2025 Sodium [Moles/Vol] 133 mmol/L 133-145 [facility] White blood cell (WBC) count Ordered By: Ethan Darnell on 01-07-2025 WBC (Bld) [#/Vol] 9.1 10*3/uL 4.4-11.0 [facility] Inital Evaluation (1) - PTon 10-13-2024 Inital Evaluation (1) - PT Normal [facility] Albumin to globulin ratioOrd ered By: Ramone Smiley on 09-27-2024 Albumin/Globulin [Mass ratio] 0.6 {ratio} Low 0.9-2.4 [facility] Bilirubin, totalOrdered By: Ramone Smiley on 09-27-2024 Bilirubin [Mass/Vol] 0.20 mg/dL 0.20-1.00 [facility] Comment on above: For patients on eltr ombopag therapy, use of Dimension [place] TBIL is not recommended. Blood urea nitrogen (BUN)/cr eatinine ratioOrdered By: Ramone Smiley on 09-27-2024 Urea nitrogen/Creatinine [Mass ratio] 12.7 mg/mg 10- [facility] CBC-Complete Blood Cnt No Di ffon 09-27-2024 Erythrocyte distribution width (RBC) [Ratio] 15.9 % High 11.6-14.6 [facility] Comment on above: Order Comment: Order Date: 09/27/24Order Info: [id number] - CBC Performed By: #### L 500.4050, L100.0500 ####[facility] [address] [place], [address] Hematocrit (Bld) [Volume fraction] 35.7 % Low 37-47 [facility] Comment on above: Order Comment: Order Date: 09/27/24Order Info: [id number] - CBC Performed By: #### L 500.4050, L100.0500 ####[facility] [address] [place], [address] Hemoglobin (Bld) [Mass/Vol] 11.0 g/dL Low 12.0-15.0 [facility] Comment on above: Order Comment: Order Date: 09/27/24Order Info: [id number] - CBC Performed By: #### L 500.4050, L100.0500 ####[facility] [address] [place], [address] MCH (RBC) [Entitic mass] 25.8 pg Low 27.0-32.0 [facility] Comment on above: Order Comment: Order Date: 09/27/24Order Info: [id number] - CBC Performed By: #### L 500.4050, L100.0500 ####[facility] [address] [place], [address] MCHC (RBC) [Mass/Vol] 30.8 g/dL Low 32-36 [facility] Comment on above: Order Comment: Order Date: 09/27/24Order Info: [id number] - CBC Performed By: #### L 500.4050, L100.0500 ####[facility] [address] [place], [address] MCV (RBC) [Entitic vol] 83.6 fL Normal 81-99 [facility] Comment on above: Order Comment: Order Date: 09/27/24Order Info: [id number] - CBC Performed By: #### L 500.4050, L100.0500 ####[facility] [address] [place], [address] Platelet mean volume (Bld) [Entitic vol] 11.3 fL Normal 6.2-12.0 [facility] Comment on above: Order Comment: Order Date: 09/27/24Order Info: [id number] - CBC Performed By: #### L 500.4050, L100.0500 ####[facility] [address] [place], [address] Platelets (Bld) [#/Vol] 287 10*3/uL Normal 150-450 [facility] Comment on above: Order Comment: Order Date: 09/27/24Order Info: [id number] - CBC Performed By: #### L 500.4050, L100.0500 ####[facility] [address] [place], [address] RBC (Bld) [#/Vol] 4.27 10*6/uL Normal 4.2-5.4 [facility] Comment on above: Order Comment: Order Date: 09/27/24Order Info: [id number] - CBC Performed By: #### L 500.4050, L100.0500 ####[facility] [address] [place], [address] RDW SD 47.4 fl High 35.1-43.9 [facility] Comment on above: Order Comment: Order Date: 09/27/24Order Info: [id number] - CBC Performed By: #### L 500.4050, L100.0500 ####[facility] [address] [place], [address] WBC (Bld) [#/Vol] 8.6 10*3/uL Normal 4.4-11.0 [facility] Comment on above: Order Comment: Order Date: 09/27/24Order Info: [id number] - CBC Performed By: #### L 500.4050, L100.0500 ####[facility] [address] [place], [address] Carbon dioxide measurementOr dered By: Ramone Smiley on 09-27-2024 CO2 [Moles/Vol] 28.0 mmol/L 21.0-32.0 [facility] Chloride measurementOrdered By: Ramone Smiley on 09-27-2024 Chloride [Moles/Vol] 101 mmol/L 98-107 [facility] Comprehensive Metabolic Prof ilon 09-27-2024 Albumin [Mass/Vol] 3.0 g/dL Low 3.2-5.0 [facility] Comment on above: Order Comment: Order Date: 09/27/24Order Info: [id number] - CMPOrder Info: [id number] - CRE Performed By: #### L 500.4050, L100.0500 ####[facility] [address] [place], [address] Albumin/Globulin [Mass ratio] 0.6 {ratio} Low 0.9-2.4 [facility] Comment on above: Order Comment: Order Date: 09/27/24Order Info: [id number] - CMPOrder Info: [id number] - CRE Performed By: #### L 500.4050, L100.0500 ####[facility] [address] [place], [address] ALK P 145 U/L High 45-117 [facility] Comment on above: Order Comment: Order Date: 09/27/24Order Info: [id number] - CMPOrder Info: [id number] - CRE Performed By: #### L 500.4050, L100.0500 ####[facility] [address] [place], [address] ALT [Catalytic activity/Vol] 16 U/L Normal 13-56 [facility] Comment on above: Order Comment: Order Date: 09/27/24Order Info: [id number] - CMPOrder Info: [id number] - CRE Performed By: #### L 500.4050, L100.0500 ####[facility] [address] [place], [address] AST [Catalytic activity/Vol] 16 U/L Normal 15-37 [facility] Comment on above: Order Comment: Order Date: 09/27/24Order Info: [id number] - CMPOrder Info: [id number]- - CRE Performed By: #### L 500.4050, L100.0500 ####[facility] [address] [place], [address] Bilirubin [Mass/Vol] 0.20 mg/dL Normal 0.20-1.00 [facility] Comment on above: Order Comment: Order Date: 09/27/24Order Info: [id number] - CMPOrder Info: [id number] - CRE Result Comment: For patients on eltrombopag therapy, use of Dimension [place] TBIL is not recommended. Performed By: #### L 500.4050, L100.0500 ####[facility] [address] [place], [address] BUN/CRE 12.7 RATIO Normal 10-20 [facility] Comment on above: Order Comment: Order Date: 09/27/24Order Info: [id number] - CMPOrder Info: [id number] - CRE Performed By: #### L 500.4050, L100.0500 ####[facility] [address] [place], [address] CA,Total 11.0 mg/dL High 8.5-10.1 [facility] Comment on above: Order Comment: Order Date: 09/27/24Order Info: [id number] - CMPOrder Info: [id number]- - CRE Performed By: #### L 500.4050, L100.0500 ####[facility] [address] [place], [address] Chloride [Moles/Vol] 101 mmol/L Normal 98-107 [facility] Comment on above: Order Comment: Order Date: 09/27/24Order Info: [id number] - CMPOrder Info: [id number] - CRE Performed By: #### L 500.4050, L100.0500 ####[facility] [address] [place], [address] CO2 [Moles/Vol] 28.0 mmol/L Normal 21.0-32.0 [facility] Comment on above: Order Comment: Order Date: 09/27/24Order Info: [id number] - CMPOrder Info: [id number]- - CRE Performed By: #### L 500.4050, L100.0500 ####[facility] [address] [place], [address] Creatinine [Mass/Vol] 0.86 mg/dL Normal 0.55-1.02 [facility] Comment on above: Order Comment: Order Date: 09/27/24Order Info: 07- - CMPOrder Info: [id number] - CRE Result Comment: The validity of the calculated GFR GFRAA in patients over70 years has not been determined. Clinical correlation isessential. Performed By: #### L 500.4050, L100.0500 ####[facility] [address] [place], [address] EST GFR - AA 81 mL/min Normal >60 [facility] Comment on above: Order Comment: Order Date: 09/27/24Order Info: [id number] - CMPOrder Info: [id number] - CRE Result Comment: Afri can Niuean GFR Calc Performed By: #### L 500.4050, L100.0500 ####[facility] [address] [place], [address] GAP 8 Normal 5-15 [facility] Comment on above: Order Comment: Order Date: 09/27/24Order Info: [id number] - CMPOrder Info: [id number] - CRE Performed By: #### L 500.4050, L100.0500 ####[facility] [address] [place], [address] GFR/1.73 sq M.predicted among non-blacks MDRD (S/P/Bld) [Vol rate/Area] 67 mL/min/{1.73_m2} Normal >60 [facility] Comment on above: Order Comment: Order Date: 09/27/24Order Info: [id number] - CMPOrder Info: [id number] - CRE Result Comment: Non- GFR Calc Performed By: #### L 500.4050, L100.0500 ####[facility] [address] [place], [address] Globulin (S) [Mass/Vol] 5.0 g/dL High 2.2-4.2 [facility] Comment on above: Order Comment: Order Date: 09/27/24Order Info: [id number] - CMPOrder Info: [id number] - CRE Performed By: #### L 500.4050, L100.0500 ####[facility] [address] [place], [address] Glucose [Mass/Vol] 144 mg/dL High 74-106 [facility] Comment on above: Order Comment: Order Date: 09/27/24Order Info: [id number] - CMPOrder Info: [id number] - CRE Result Comment: Fast ing Glucose result greater than or equal to 126 mg/dLsuggests DIABETES MELLITUS per A.D.A. criteria. Performed By: #### L 500.4050, L100.0500 ####[facility] [address] [place], [address] Potassium [Moles/Vol] 3.5 mmol/L Normal 3.5-5.1 [facility] Comment on above: Order Comment: Order Date: 09/27/24Order Info: [id number] - CMPOrder Info: [id number] - CRE Performed By: #### L 500.4050, L100.0500 ####[facility] [address] [place], [address] Sodium [Moles/Vol] 138 mmol/L Normal 136-145 [facility] Comment on above: Order Comment: Order Date: 09/27/24Order Info: [id number] - CMPOrder Info: [id number] - CRE Performed By: #### L 500.4050, L100.0500 ####[facility] [address] [place], [address] T PROT 8.0 g/dL Normal 6.4-8.2 [facility] Comment on above: Order Comment: Order Date: 09/27/24Order Info: [id number] - CMPOrder Info: [id number] - CRE Performed By: #### L 500.4050, L100.0500 ####[facility] [address] [place], [address] Urea nitrogen [Mass/Vol] 11 mg/dL Normal 7-18 [facility] Comment on above: Order Comment: Order Date: 09/27/24Order Info: [id number] - CMPOrder Info: [id number] - CRE Performed By: #### L 500.4050, L100.0500 ####[facility] [address] [place], [address] Erythrocyte distribution wid th ratioOrdered By: Ramone Smiley on 09-27-2024 Erythrocyte distribution width (RBC) [Ratio] 15.9 % High 11.6-14.6 [facility] Erythrocyte distribution wid th standard deviationOrdered By: Ramone Smiley on 09-27-2024 Erythrocyte distribution width (RBC) [Ratio] 47.4 fl High 35.1-43.9 [facility] Glomerular filtration rate ( GFR) estimationOrdered By: Ramone Smiley on 09-27-2024 GFR/1.73 sq M.predicted among non-blacks MDRD (S/P/Bld) [Vol rate/Area] 67 mL/min/{1.73_m2} >60 [facility] Comment on above: Non- GFR Calc Glucose measurementOrdered B y: Ramone Smiley on 09-27-2024 Glucose [Mass/Vol] 144 mg/dL High 74-106 [facility] Comment on above: Fasting Glucose resu lt greater than or equal to 126 mg/dL suggests DIABETES MELLITUS per A.D.A. criteria. Hematocrit Auto (Bld) [Volum e fraction]Ordered By: Ramone Smiley on 09-27-2024 Hematocrit (Bld) [Volume fraction] 35.7 % Low 37-47 [facility] Hemoglobin measurementOrdere d By: Ramone Smiley on 09-27-2024 Hemoglobin (Bld) [Mass/Vol] 11.0 g/dL Low 12.0-15.0 [facility] Laboratory - Chemistry and C hemistry - challengeOrdered By: Ramone Smiley on 09-27-2024 AST [Catalytic activity/Vol] 16 U/L 15-37 [facility] MCV (mean corpuscular volume ) determinationOrdered By: Ramone Smiley on 09-27-2024 MCV (RBC) [Entitic vol] 83.6 fL 81-99 [facility] Mean corpuscular hemoglobin (MCH) determinationOrdered By: Ramone Smiley on 09-27-2024 MCH (RBC) [Entitic mass] 25.8 pg Low 27.0-32.0 [facility] Mean corpuscular hemoglobin concentration (MCHC) determinationOrdered By: Ramone Smiley on 09-27-2024 MCHC (RBC) [Mass/Vol] 30.8 g/dL Low 32-36 [facility] Mean platelet volume determi nationOrdered By: Ramone Smiley on 09-27-2024 Platelet mean volume (Bld) [Entitic vol] 11.3 fL 6.2-12.0 [facility] No Panel InformationOrdered By: Ramone Smiley on 09-27-2024 16 U/L 15-37 [facility] Platelet countOrdered By: Richar Smiley on 09-27-2024 Platelets (Bld) [#/Vol] 287 10*3/uL 150-450 [facility] Potassium measurementOrdered By: Ramone Smiley on 09-27-2024 Potassium [Moles/Vol] 3.5 mmol/L 3.5-5.1 [facility] RBC Auto (Bld) [#/Vol]Ordere d By: Ramone Smiley on 09-27-2024 RBC (Bld) [#/Vol] 4.27 10*6/uL 4.2-5.4 [facility] Serum anion gap measurementO rdered By: Ramone Smiley on 09-27-2024 Anion gap [Moles/Vol] 8 mmol/L 5-15 [facility] Serum globulin measurementOr dered By: Ramone Smiley on 09-27-2024 Globulin (S) [Mass/Vol] 5.0 g/dL High 2.2-4.2 [facility] Serum or plasma alanine kelley otransferase (ALT) measurementOrdered By: Ramone Smiley on 09-27-2024 ALT [Catalytic activity/Vol] 16 U/L 13-56 [facility] Serum or plasma albumin melanie urement (mass/volume)Ordered By: Ramone Smiley on 09-27-2024 Albumin [Mass/Vol] 3.0 g/dL Low 3.2-5.0 [facility] Serum or plasma alkaline lissa sphatase measurementOrdered By: Ramone Smiley on 09-27-2024 ALP [Catalytic activity/Vol] 145 U/L High 45-117 [facility] Serum or plasma calcium melanie urement (mass/volume)Ordered By: Ramone Smiley on 09-27-2024 Calcium [Mass/Vol] 11.0 mg/dL High 8.5-10.1 [facility] Serum or plasma creatinine m easurement (mass/volume)Ordered By: Ramone Smiley on 09-27-2024 Creatinine [Mass/Vol] 0.86 mg/dL 0.55-1.02 [facility] Comment on above: The validity of the calculated GFR & GFRAA in patients over 70 years has not been determined. Clinical correlation is essential. Serum or plasma urea nitroge n measurement (mass/volume)Ordered By: Ramone Smiley on 09-27-2024 Urea nitrogen [Mass/Vol] 11 mg/dL 7-18 [facility] Sodium levelOrdered By: Ramone Smiley on 09-27-2024 Sodium [Moles/Vol] 138 mmol/L 136-145 [facility] Total proteinOrdered By: Lilliam Smiley on 09-27-2024 Protein [Mass/Vol] 8.0 g/dL 6.4-8.2 [facility] White blood cell (WBC) count Ordered By: Ramone Smiley on 09-27-2024 WBC (Bld) [#/Vol] 8.6 10*3/uL 4.4-11.0 [facility] Kidney and Bladderon 024 Kidney and Bladder Normal [facility] BNP,B-Type NATRIURETIC PEPTI Ish[place] 06-19-2024 Natriuretic peptide B (Bld) [Mass/Vol] 81.6 pg/mL Normal 0-100 [facility] Comment on above: Performed By: #### L 500.2500, L503.6620, L100.0100 ####[facility] [address] [place], [address] Basic Metabolic Profile (BMP )on 06-19-2024 BUN/CRE 9.3 RATIO Low 06-19 [facility] Comment on above: Performed By: #### L 500.2500, L503.6620, L100.0100 ####[facility] [address] [place], [address] CA,Total 11.0 mg/dL High 8.5-10.1 [facility] Comment on above: Performed By: #### L 500.2500, L503.6620, L100.0100 ####[facility] [address] [place], [address] Chloride [Moles/Vol] 104 mmol/L Normal 98-107 [facility] Comment on above: Performed By: #### L 500.2500, L503.6620, L100.0100 ####[facility] [address] [place], [address] CO2 [Moles/Vol] 26.0 mmol/L Normal 21.0-32.0 [facility] Comment on above: Performed By: #### L 500.2500, L503.6620, L100.0100 ####[facility] [address] [place], [address] Creatinine [Mass/Vol] 1.08 mg/dL High 0.55-1.02 [facility] Comment on above: Result Comment: The validity of the calculated GFR GFRAA in patients over70 years has not been determined. Clinical correlation isessential. Performed By: #### L 500.2500, L503.6620, L100.0100 ####[facility] [address] [place], [address] EST GFR - AA 63 mL/min Normal >60 [facility] Comment on above: Result Comment: Afri can Niuean GFR Calc Performed By: #### L 500.2500, L503.6620, L100.0100 ####[facility] [address] [place], [address] GAP 6 Normal 5-15 [facility] Comment on above: Performed By: #### L 500.2500, L503.6620, L100.0100 ####[facility] [address] [place], [address] GFR/1.73 sq M.predicted among non-blacks MDRD (S/P/Bld) [Vol rate/Area] 52 mL/min/{1.73_m2} Low >60 [facility] Comment on above: Result Comment: Non- GFR Calc Performed By: #### L 500.2500, L503.6620, L100.0100 ####[facility] [address] [place], [address] Glucose [Mass/Vol] 263 mg/dL High 74-106 [facility] Comment on above: Result Comment: Gluc ose result greater than or equal to 200 mg/dLsuggests DIABETES MELLITUS per A.D.A. criteria. Performed By: #### L 500.2500, L503.6620, L100.0100 ####[facility] [address] [place], [address] Potassium [Moles/Vol] 4.4 mmol/L Normal 3.5-5.1 [facility] Comment on above: Performed By: #### L 500.2500, L503.6620, L100.0100 ####[facility] [address] [place], [address] Sodium [Moles/Vol] 137 mmol/L Normal 136-145 [facility] Comment on above: Performed By: #### L 500.2500, L503.6620, L100.0100 ####[facility] [address] [place], [address] Urea nitrogen [Mass/Vol] 10 mg/dL Normal 7-18 [facility] Comment on above: Performed By: #### L 500.2500, L503.6620, L100.0100 ####[facility] [address] [place], [address] CBC W/Diff, Automatedon 10-2 0-4 Absolute Lymph 2.32 X10 3/uL Normal 0.83-4.51 [facility] Comment on above: Performed By: #### L 500.2500, L503.6620, L100.0100 ####[facility] [address] [place], [address] Absolute Neut 4.7 X10 3/uL Normal 2.0-7.7 [facility] Comment on above: Performed By: #### L 500.2500, L503.6620, L100.0100 ####[facility] [address] [place], [address] Basophils/100 WBC (Bld) 0.5 % Normal 0-1 [facility] Comment on above: Performed By: #### L 500.2500, L503.6620, L100.0100 ####[facility] [address] [place], [address] Eosinophils/100 WBC (Bld) 8.7 % High 0-5 [facility] Comment on above: Performed By: #### L 500.2500, L503.6620, L100.0100 ####[facility] [address] [place], [address] Erythrocyte distribution width (RBC) [Ratio] 16.6 % High 11.6-14.6 [facility] Comment on above: Performed By: #### L 500.2500, L503.6620, L100.0100 ####[facility] [address] [place], [address] Hematocrit (Bld) [Volume fraction] 36.6 % Low 37-47 [facility] Comment on above: Performed By: #### L 500.2500, L503.6620, L100.0100 ####[facility] [address] [place], [address] Hemoglobin (Bld) [Mass/Vol] 11.2 g/dL Low 12.0-15.0 [facility] Comment on above: Performed By: #### L 500.2500, L503.6620, L100.0100 ####[facility] [address] [place], [address] IG% 0.200 Normal 0.0-0.9 [facility] Comment on above: Result Comment: IG% - Immature Granulocytes (promyelocytes, myelocytes andmetamyelocytes) > 1% indicates that a LEFT SHIFT is Present. Performed By: #### L 500.2500, L503.6620, L100.0100 ####[facility] [address] [place], [address] Lymphocytes/100 WBC (Bld) 27.7 % Normal 19-41 [facility] Comment on above: Performed By: #### L 500.2500, L503.6620, L100.0100 ####[facility] [address] [place], [address] MCH (RBC) [Entitic mass] 25.6 pg Low 27.0-32.0 [facility] Comment on above: Performed By: #### L 500.2500, L503.6620, L100.0100 ####[facility] [address] [place], [address] MCHC (RBC) [Mass/Vol] 30.6 g/dL Low 32-36 [facility] Comment on above: Performed By: #### L 500.2500, L503.6620, L100.0100 ####[facility] [address] [place], [address] MCV (RBC) [Entitic vol] 83.8 fL Normal 81-99 [facility] Comment on above: Performed By: #### L 500.2500, L503.6620, L100.0100 ####[facility] [address] [place], [address] Monocytes/100 WBC (Bld) 6.7 % Normal 0-10 [facility] Comment on above: Performed By: #### L 500.2500, L503.6620, L100.0100 ####[facility] [address] [place], [address] Neutrophils/100 WBC (Bld) 56.2 % Normal 47-70 [facility] Comment on above: Performed By: #### L 500.2500, L503.6620, L100.0100 ####[facility] [address] [place], [address] Nucleated RBC (Bld) [#/Vol] 0 10*3/uL Normal 0-5 [facility] Comment on above: Performed By: #### L 500.2500, L503.6620, L100.0100 ####[facility] [address] [place], [address] Platelet mean volume (Bld) [Entitic vol] 10.4 fL Normal 6.2-12.0 [facility] Comment on above: Performed By: #### L 500.2500, L503.6620, L100.0100 ####[facility] [address] [place], [address] Platelets (Bld) [#/Vol] 234 10*3/uL Normal 150-450 [facility] Comment on above: Performed By: #### L 500.2500, L503.6620, L100.0100 ####[facility] [address] [place], [address] RBC (Bld) [#/Vol] 4.37 10*6/uL Normal 4.2-5.4 [facility] Comment on above: Performed By: #### L 500.2500, L503.6620, L100.0100 ####[facility] [address] [place], [address] RDW SD 50.9 fl High 35.1-43.9 [facility] Comment on above: Performed By: #### L 500.2500, L503.6620, L100.0100 ####[facility] [address] [place], [address] WBC (Bld) [#/Vol] 8.4 10*3/uL Normal 4.4-11.0 [facility] Comment on above: Performed By: #### L 500.2500, L503.6620, L100.0100 ####[facility] [address] [place], [address] Chest 1 View (Portable)on Chest 1 View (Portable) Normal [facility] Emergency Department Summary on 06-19-2024 Emergency Department Summary Normal [facility] 12 Lead EKGon 05-30-2024 12 Lead EKG Normal [facility] BNP,B-Type NATRIURETIC PEPTI Ishaan 05-30-2024 Natriuretic peptide B (Bld) [Mass/Vol] 108.0 pg/mL High 0-100 [facility] Comment on above: Performed By: #### L 100.0100, L503.6620, L500.2500, L501.4020 ####[facility] [address] [place], [address] Basic Metabolic Profile (BMP )on 05-30-2024 BUN/CRE 12.8 RATIO Normal 06-19 [facility] Comment on above: Order Comment: 'TROP ' Serial specimen #1, #2 or #3: 1 Performed By: #### L 100.0100, L503.6620, L500.2500, L501.4020 ####[facility] [address] [place], [address] CA,Total 11.4 mg/dL High 8.5-10.1 [facility] Comment on above: Order Comment: 'TROP ' Serial specimen #1, #2 or #3: 1 Performed By: #### L 100.0100, L503.6620, L500.2500, L501.4020 ####[facility] [address] [place], [address] Chloride [Moles/Vol] 104 mmol/L Normal 98-107 [facility] Comment on above: Order Comment: 'TROP ' Serial specimen #1, #2 or #3: 1 Performed By: #### L 100.0100, L503.6620, L500.2500, L501.4020 ####[facility] [address] [place], [address] CO2 [Moles/Vol] 28.0 mmol/L Normal 21.0-32.0 [facility] Comment on above: Order Comment: 'TROP ' Serial specimen #1, #2 or #3: 1 Performed By: #### L 100.0100, L503.6620, L500.2500, L501.4020 ####[facility] [address] [place], [address] Creatinine [Mass/Vol] 0.93 mg/dL Normal 0.55-1.02 [facility] Comment on above: Order Comment: 'TROP ' Serial specimen #1, #2 or #3: 1 Result Comment: The validity of the calculated GFR GFRAA in patients over70 years has not been determined. Clinical correlation isessential. Performed By: #### L 100.0100, L503.6620, L500.2500, L501.4020 ####[facility] [address] [place], [address] ECRCL 45.88 ml/min Normal [facility] Comment on above: Order Comment: 'TROP ' Serial specimen #1, #2 or #3: 1 Performed By: #### L 100.0100, L503.6620, L500.2500, L501.4020 ####[facility] [address] [place], [address] EST GFR - AA 74 mL/min Normal >60 [facility] Comment on above: Order Comment: 'TROP ' Serial specimen #1, #2 or #3: 1 Result Comment: Afri can Niuean GFR Calc Performed By: #### L 100.0100, L503.6620, L500.2500, L501.4020 ####[facility] [address] [place], [address] GAP 7 Normal 5-15 [facility] Comment on above: Order Comment: 'TROP ' Serial specimen #1, #2 or #3: 1 Performed By: #### L 100.0100, L503.6620, L500.2500, L501.4020 ####[facility] [address] [place], [address] GFR/1.73 sq M.predicted among non-blacks MDRD (S/P/Bld) [Vol rate/Area] 61 mL/min/{1.73_m2} Normal >60 [facility] Comment on above: Order Comment: 'TROP ' Serial specimen #1, #2 or #3: 1 Result Comment: Non- GFR Calc Performed By: #### L 100.0100, L503.6620, L500.2500, L501.4020 ####[facility] [address] [place], [address] Glucose [Mass/Vol] 167 mg/dL High 74-106 [facility] Comment on above: Order Comment: 'TROP ' Serial specimen #1, #2 or #3: 1 Result Comment: Fast ing Glucose result greater than or equal to 126 mg/dLsuggests DIABETES MELLITUS per A.D.A. criteria. Performed By: #### L 100.0100, L503.6620, L500.2500, L501.4020 ####[facility] [address] [place], [address] Potassium [Moles/Vol] 4.0 mmol/L Normal 3.5-5.1 [facility] Comment on above: Order Comment: 'TROP ' Serial specimen #1, #2 or #3: 1 Performed By: #### L 100.0100, L503.6620, L500.2500, L501.4020 ####[facility] [address] [place], [address] Sodium [Moles/Vol] 138 mmol/L Normal 136-145 [facility] Comment on above: Order Comment: 'TROP ' Serial specimen #1, #2 or #3: 1 Performed By: #### L 100.0100, L503.6620, L500.2500, L501.4020 ####[facility] [address] [place], [address] Urea nitrogen [Mass/Vol] 12 mg/dL Normal 7-18 [facility] Comment on above: Order Comment: 'TROP ' Serial specimen #1, #2 or #3: 1 Performed By: #### L 100.0100, L503.6620, L500.2500, L501.4020 ####[facility] [address] [place], [address] CBC W/Diff, Automatedon 05-03 PLT EST ADEQUATE Normal ADEQ [facility] Comment on above: Performed By: #### L 100.0100, L503.6620, L500.2500, L501.4020 ####[facility] [address] [place], [address] Chest PA and Lateralon 05-30 Chest PA and Lateral Normal [facility] Emergency Department Summary on 05-30-2024 Emergency Department Summary Normal [facility] L501.4020on 05-30-2024 TROPONIN-I HS 12 pg/mL Normal 3.0-54.0 [facility] Comment on above: Order Comment: 'TROP ' Serial specimen #1, #2 or #3: 1 Result Comment: Sean reyes Note: New Test Units and Gender Specific Reference Ranges. For more information see Policy Stat Procedure [place] High Sensitivity Troponin (TNIH) and attachments. Performed By: #### L 100.0100, L503.6620, L500.2500, L501.4020 ####[facility] [address] [place], [address] Inital Evaluation (1) - PTon 04-26-2024 Inital Evaluation (1) - PT Normal [facility] CBC W/Diff, Automatedon 03-31 Absolute Lymph 1.93 X10 3/uL Normal 0.83-4.51 [facility] Comment on above: Performed By: #### L 100.0100, L500.4050, L501.9985 ####[facility] [address] [place], [address] Absolute Neut 5.1 X10 3/uL Normal 2.0-7.7 [facility] Comment on above: Performed By: #### L 100.0100, L500.4050, L501.9985 ####[facility] [address] [place], [address] Basophils/100 WBC (Bld) 0.6 % Normal 0-1 [facility] Comment on above: Performed By: #### L 100.0100, L500.4050, L501.9985 ####[facility] [address] [place], [address] Eosinophils/100 WBC (Bld) 3.7 % Normal 0-5 [facility] Comment on above: Performed By: #### L 100.0100, L500.4050, L501.9985 ####[facility] [address] [place], [address] Erythrocyte distribution width (RBC) [Ratio] 16.0 % High 11.6-14.6 [facility] Comment on above: Performed By: #### L 100.0100, L500.4050, L501.9985 ####[facility] [address] [place], [address] Hematocrit (Bld) [Volume fraction] 34.9 % Low 37-47 [facility] Comment on above: Performed By: #### L 100.0100, L500.4050, L501.9985 ####[facility] [address] [place], [address] Hemoglobin (Bld) [Mass/Vol] 10.4 g/dL Low 12.0-15.0 [facility] Comment on above: Performed By: #### L 100.0100, L500.4050, L501.9985 ####[facility] [address] [place], [address] IG% 0.300 Normal 0.0-0.9 [facility] Comment on above: Result Comment: IG% - Immature Granulocytes (promyelocytes, myelocytes andmetamyelocytes) > 1% indicates that a LEFT SHIFT is Present. Performed By: #### L 100.0100, L500.4050, L501.9985 ####[facility] [address] [place], [address] Lymphocytes/100 WBC (Bld) 24.5 % Normal 19-41 [facility] Comment on above: Performed By: #### L 100.0100, L500.4050, L501.9985 ####[facility] [address] [place], [address] MCH (RBC) [Entitic mass] 24.4 pg Low 27.0-32.0 [facility] Comment on above: Performed By: #### L 100.0100, L500.4050, L501.9985 ####[facility] [address] [place], [address] MCHC (RBC) [Mass/Vol] 29.8 g/dL Low 32-36 [facility] Comment on above: Performed By: #### L 100.0100, L500.4050, L501.9985 ####[facility] [address] [place], [address] MCV (RBC) [Entitic vol] 81.9 fL Normal 81-99 [facility] Comment on above: Performed By: #### L 100.0100, L500.4050, L501.9985 ####[facility] [address] [place], [address] Monocytes/100 WBC (Bld) 6.8 % Normal 0-10 [facility] Comment on above: Performed By: #### L 100.0100, L500.4050, L501.9985 ####[facility] [address] [place], [address] Neutrophils/100 WBC (Bld) 64.1 % Normal 47-70 [facility] Comment on above: Performed By: #### L 100.0100, L500.4050, L501.9985 ####[facility] [address] [place], [address] Nucleated RBC (Bld) [#/Vol] 0 10*3/uL Normal 0-5 [facility] Comment on above: Performed By: #### L 100.0100, L500.4050, L501.9985 ####[facility] [address] [place], [address] Platelet mean volume (Bld) [Entitic vol] 10.7 fL Normal 6.2-12.0 [facility] Comment on above: Performed By: #### L 100.0100, L500.4050, L501.9985 ####[facility] [address] [place], [address] Platelets (Bld) [#/Vol] 294 10*3/uL Normal 150-450 [facility] Comment on above: Performed By: #### L 100.0100, L500.4050, L501.9985 ####[facility] [address] [place], [address] RBC (Bld) [#/Vol] 4.26 10*6/uL Normal 4.2-5.4 [facility] Comment on above: Performed By: #### L 100.0100, L500.4050, L501.9985 ####[facility] [address] [place], [address] RDW SD 48.0 fl High 35.1-43.9 [facility] Comment on above: Performed By: #### L 100.0100, L500.4050, L501.9985 ####[facility] [address] [place], [address] WBC (Bld) [#/Vol] 7.9 10*3/uL Normal 4.4-11.0 [facility] Comment on above: Performed By: #### L 100.0100, L500.4050, L501.9985 ####[facility] [address] [place], [address] Comprehensive Metabolic Prof ilon 04-18-2024 Albumin [Mass/Vol] 3.0 g/dL Low 3.2-5.0 [facility] Comment on above: Performed By: #### L 100.0100, L500.4050, L501.9985 ####[facility] [address] [place], [address] Albumin/Globulin [Mass ratio] 0.6 {ratio} Low 0.9-2.4 [facility] Comment on above: Performed By: #### L 100.0100, L500.4050, L501.9985 ####[facility] [address] [place], [address] ALK P 130 U/L High 45-117 [facility] Comment on above: Performed By: #### L 100.0100, L500.4050, L501.9985 ####[facility] [address] [place], [address] ALT [Catalytic activity/Vol] 14 U/L Normal 13-56 [facility] Comment on above: Performed By: #### L 100.0100, L500.4050, L501.9985 ####[facility] [address] [place], [address] AST [Catalytic activity/Vol] 22 U/L Normal 15-37 [facility] Comment on above: Performed By: #### L 100.0100, L500.4050, L501.9985 ####[facility] [address] [place], [address] Bilirubin [Mass/Vol] 0.30 mg/dL Normal 0.20-1.00 [facility] Comment on above: Result Comment: For patients on eltrombopag therapy, use of Dimension [place] TBIL is not recommended. Performed By: #### L 100.0100, L500.4050, L501.9985 ####[facility] [address] [place], [address] BUN/CRE 12.5 RATIO Normal 10-20 [facility] Comment on above: Performed By: #### L 100.0100, L500.4050, L501.9985 ####[facility] [address] [place], [address] CA,Total 11.0 mg/dL High 8.5-10.1 [facility] Comment on above: Performed By: #### L 100.0100, L500.4050, L501.9985 ####[facility] [address] [place], [address] Chloride [Moles/Vol] 101 mmol/L Normal 98-107 [facility] Comment on above: Performed By: #### L 100.0100, L500.4050, L501.9985 ####[facility] [address] [place], [address] CO2 [Moles/Vol] 26.0 mmol/L Normal 21.0-32.0 [facility] Comment on above: Performed By: #### L 100.0100, L500.4050, L501.9985 ####[facility] [address] [place], [address] Creatinine [Mass/Vol] 0.96 mg/dL Normal 0.55-1.02 [facility] Comment on above: Result Comment: The validity of the calculated GFR GFRAA in patients over70 years has not been determined. Clinical correlation isessential. Performed By: #### L 100.0100, L500.4050, L501.9985 ####[facility] [address] [place], [address] EST GFR - AA 72 mL/min Normal >60 [facility] Comment on above: Result Comment: Afri can Niuean GFR Calc Performed By: #### L 100.0100, L500.4050, L501.9985 ####[facility] [address] [place], [address] GAP 6 Normal 5-15 [facility] Comment on above: Performed By: #### L 100.0100, L500.4050, L501.9985 ####[facility] [address] [place], [address] GFR/1.73 sq M.predicted among non-blacks MDRD (S/P/Bld) [Vol rate/Area] 59 mL/min/{1.73_m2} Low >60 [facility] Comment on above: Result Comment: Non- GFR Calc Performed By: #### L 100.0100, L500.4050, L501.9985 ####[facility] [address] [place], [address] Globulin (S) [Mass/Vol] 5.4 g/dL High 2.2-4.2 [facility] Comment on above: Performed By: #### L 100.0100, L500.4050, L501.9985 ####[facility] [address] [place], [address] Glucose [Mass/Vol] 142 mg/dL High 74-106 [facility] Comment on above: Result Comment: Fast ing Glucose result greater than or equal to 126 mg/dLsuggests DIABETES MELLITUS per A.D.A. criteria. Performed By: #### L 100.0100, L500.4050, L501.9985 ####[facility] [address] [place], [address] Potassium [Moles/Vol] 3.5 mmol/L Normal 3.5-5.1 [facility] Comment on above: Performed By: #### L 100.0100, L500.4050, L501.9985 ####[facility] [address] [place], [address] Sodium [Moles/Vol] 133 mmol/L Low 136-145 [facility] Comment on above: Performed By: #### L 100.0100, L500.4050, L501.9985 ####[facility] [address] [place], [address] T PROT 8.4 g/dL High 6.4-8.2 [facility] Comment on above: Performed By: #### L 100.0100, L500.4050, L501.9985 ####[facility] [address] [place], [address] Urea nitrogen [Mass/Vol] 12 mg/dL Normal 7-18 [facility] Comment on above: Performed By: #### L 100.0100, L500.4050, L501.9985 ####[facility] [address] [place], [address] Hemoglobin A1con 04-18-2024 HbA1c (Bld) [Mass fraction] 8.2 % High 3.8-5.6 [facility] Comment on above: Result Comment: Norm al < 5.7 % Prediabetic 5.7 - 6.4 % Diabetic >or= 6.5 % Please note range changes. Performed By: #### L 100.0100, L500.4050, L501.9985 ####[facility] [address] [place], [address] Inital Evaluation (1) - PTon 03-10-2024 Inital Evaluation (1) - PT Normal [facility] SCRN MAMM (CAD)W/CEASAR BILATo n 03-01-2024 SCRN MAMM (CAD)W/CEASAR BILAT Normal [facility] Dexa Bone Density/Append Ske guillermo 02-23-2024 Dexa Bone Density/Append Skel Normal [facility] Absolute lymphocyte countOrd ered By: Sunny Bell on 12-30-2023 Lymphocytes Auto (Unsp spec) [#/Vol] 2.48 10*3/uL 0.83-4.51 [facility] Automated lymphocyte count a s percentage of total leukocytesOrdered By: Sunny Bell on 12-30-2023 Lymphocytes/100 WBC Auto (Unsp spec) 25.3 % 19-41 [facility] Basophil percentageOrdered B y: Sunny Bell on 12-30-2023 Basophils/100 WBC (Bld) 0.3 % 0-1 [facility] Chloride [Moles/Vol] 104 mmol/L 98-107 [facility] Eosinophils/100 WBC (Bld) 1.4 % 0-5 [facility] Glucose [Mass/Vol] 127 mg/dL 74-106 [facility] Comment on above: Fasting Glucose resu lt greater than or equal to 126 mg/dL suggests DIABETES MELLITUS per A.D.A. criteria. Hemoglobin (Bld) [Mass/Vol] 10.7 g/dL 12.0-15.0 [facility] Monocytes/100 WBC (Bld) 8.7 % 0-10 [facility] Neutrophils (Bld) [#/Vol] 6.3 10*3/uL 2.0-7.7 [facility] Neutrophils/100 WBC (Bld) 63.9 % 47-70 [facility] Potassium [Moles/Vol] 4.4 mmol/L 3.5-5.1 [facility] Sodium [Moles/Vol] 135 mmol/L 136-145 [facility] WBC (Bld) [#/Vol] 9.8 10*3/uL 4.4-11.0 [facility] Determination of erythrocyte mean corpuscular volume (MCV)Ordered By: Sunny Bell on 12-30-2023 MCV (RBC) [Entitic vol] 84.9 fL 81-99 [facility] Erythrocyte distribution wid th ratioOrdered By: Sunny Bell on 12-30-2023 Erythrocyte distribution width (RBC) [Ratio] 15.5 % 11.6-14.6 [facility] Erythrocyte distribution wid th standard deviationOrdered By: Sunny Bell on 12-30-2023 Erythrocyte distribution width (RBC) [Entitic vol] 47.9 fL 35.1-43.9 [facility] Hematocrit Auto (Bld) [Volum e fraction]Ordered By: Sunny Bell on 12-30-2023 Hematocrit (Bld) [Volume fraction] 33.8 % 37-47 [facility] Immature granulocytes/100 WB C Auto (Bld)Ordered By: Sunny Bell on 12-30-2023 Immature granulocytes/100 WBC (Bld) 0.400 % 0.0-0.9 [facility] Comment on above: IG% - Immature Granu locytes (promyelocytes, myelocytes and metamyelocytes) > 1% indicates that a LEFT SHIFT is Present. Laboratory - Chemistry and C hemistry - challengeOrdered By: Sunny Bell on 12-30-2023 CO2 [Moles/Vol] 27.0 mmol/L 21.0-32.0 [facility] Urea nitrogen/Creatinine [Mass ratio] 21.3 mg/mg 10-20 [facility] Laboratory - Hematology and Cell countsOrdered By: Sunny Bell on 12-30-2023 MCH (RBC) [Entitic mass] 26.9 pg 27.0-32.0 [facility] MCHC (RBC) [Mass/Vol] 31.7 g/dL 32-36 [facility] Nucleated RBC/100 WBC (Bld) [Ratio] 0 % 0-5 [facility] Platelet mean volume (Bld) [Entitic vol] 11.3 fL 6.2-12.0 [facility] Platelets (Bld) [#/Vol] 191 10*3/uL 150-450 [facility] No Panel InformationOrdered By: Sunny Bell on 12-30-2023 Estimated Creatinine Clearance Calc 40.01 ml/min [facility] Estimated GFR (MDRD) Amer 63 mL/min >60 [facility] Comment on above: GFR Calc Estimated GFR (MDRD) Non-Af Amer 52 mL/min >60 [facility] Comment on above: Non- GFR Calc RBC Auto (Bld) [#/Vol]Ordere d By: Sunny Bell on 12-30-2023 RBC (Bld) [#/Vol] 3.98 10*6/uL 4.2-5.4 [facility] Serum or plasma calcium melanie urement (mass/volume)Ordered By: Sunny Bell on 12-30-2023 Calcium [Mass/Vol] 11.3 mg/dL 8.5-10.1 [facility] Serum or plasma creatinine m easurement (mass/volume)Ordered By: Sunny Bell on 12-30-2023 Creatinine [Mass/Vol] 1.08 mg/dL 0.55-1.02 [facility] Comment on above: The validity of the calculated GFR & GFRAA in patients over 70 years has not been determined. Clinical correlation is essential. Serum or plasma urea nitroge n measurement (mass/volume)Ordered By: Sunny Bell on 12-30-2023 Urea nitrogen [Mass/Vol] 23 mg/dL 7-18 [facility] Thin prep Papanicolaou smear with manual screeningOrdered By: Sunny Bell on 12-30-2023 Thin prep Papanicolaou smear with manual screening 78 mg/dL 74-106 [facility] Comment on above: MANAGEMENT OF PATIEN T CARE PER NURSING PROTOCOL Thin prep Papanicolaou smear with manual screening 4 5-15 [facility] Basophil percentageOrdered B y: Sunny Bell on 12-28-2023 Basophil percentage 3.0 mg/dL 2.5-4.9 [facility] No Panel InformationOrdered By: Nestor Bartlett on 12-28-2023 Parathyroid Hormone (Intact) 177.6 pg/mL 18.4-80.1 [facility] Absolute lymphocyte countOrd ered By: Queta Cortez on 12-27-2023 Lymphocytes Auto (Unsp spec) [#/Vol] 3.04 10*3/uL 0.83-4.51 [facility] Activated partial thrombopla stin time (aPTT) in platelet poor plasma by coagulation aOrdered By: Queta Cortez on 12-27-2023 aPTT Coag (PPP) [Time] 27.3 s 24.1-36.2 [facility] Automated lymphocyte count a s percentage of total leukocytesOrdered By: Queta Cortez on 12-27-2023 Lymphocytes/100 WBC Auto (Unsp spec) 37.1 % 19-41 [facility] Basophil percentageOrdered B y: uQeta Cortez on 12-27-2023 Basophils/100 WBC (Bld) 0.5 % 0-1 [facility] Chloride [Moles/Vol] 103 mmol/L 98-107 [facility] Eosinophils/100 WBC (Bld) 3.1 % 0-5 [facility] Glucose [Mass/Vol] 254 mg/dL 74-106 [facility] Comment on above: Glucose result great er than or equal to 200 mg/dLsuggests DIABETES MELLITUS per A.D.A. criteria. Hemoglobin (Bld) [Mass/Vol] 12.4 g/dL 12.0-15.0 [facility] Monocytes/100 WBC (Bld) 6.6 % 0-10 [facility] Neutrophils (Bld) [#/Vol] 4.2 10*3/uL 2.0-7.7 [facility] Neutrophils/100 WBC (Bld) 51.7 % 47-70 [facility] Potassium [Moles/Vol] 4.2 mmol/L 3.5-5.1 [facility] Sodium [Moles/Vol] 136 mmol/L 136-145 [facility] WBC (Bld) [#/Vol] 8.2 10*3/uL 4.4-11.0 [facility] Determination of erythrocyte mean corpuscular volume (MCV)Ordered By: Queta Cortez on 12-27-2023 MCV (RBC) [Entitic vol] 85.2 fL 81-99 [facility] Erythrocyte distribution wid th ratioOrdered By: Queta Cortez on 12-27-2023 Erythrocyte distribution width (RBC) [Ratio] 15.5 % 11.6-14.6 [facility] Erythrocyte distribution wid th standard deviationOrdered By: Queta Cortez on 12-27-2023 Erythrocyte distribution width (RBC) [Entitic vol] 47.0 fL 35.1-43.9 [facility] Hematocrit Auto (Bld) [Volum e fraction]Ordered By: Queta Cortez on 12-27-2023 Hematocrit (Bld) [Volume fraction] 39.8 % 37-47 [facility] Immature granulocytes/100 WB C Auto (Bld)Ordered By: Queta Cortez on 12-27-2023 Immature granulocytes/100 WBC (Bld) 1.000 % 0.0-0.9 [facility] Comment on above: IG% - Immature Granu locytes (promyelocytes, myelocytes and metamyelocytes) > 1% indicates that a LEFT SHIFT is Present. Laboratory - Chemistry and C hemistry - challengeOrdered By: Queta Cortez on 12-27-2023 CO2 [Moles/Vol] 29.0 mmol/L 21.0-32.0 [facility] Urea nitrogen/Creatinine [Mass ratio] 18.5 mg/mg 10-20 [facility] Laboratory - CoagulationOrde red By: Queta Cortez on 12-27-2023 INR Coag (Bld) [Relative time] 1.1 {INR} [facility] PT Coag (PPP) [Time] 13.7 s 11.7-14.9 [facility] Laboratory - Hematology and Cell countsOrdered By: Queta Cortez on 12-27-2023 MCH (RBC) [Entitic mass] 26.6 pg 27.0-32.0 [facility] MCHC (RBC) [Mass/Vol] 31.2 g/dL 32-36 [facility] Nucleated RBC/100 WBC (Bld) [Ratio] 0 % 0-5 [facility] Platelet mean volume (Bld) [Entitic vol] 11.5 fL 6.2-12.0 [facility] Platelets (Bld) [#/Vol] 237 10*3/uL 150-450 [facility] No Panel InformationOrdered By: Queta Cortez on 12-27-2023 Estimated Creatinine Clearance Calc 37.33 ml/min [facility] Estimated GFR (MDRD) Amer 56 mL/min >60 [facility] Comment on above: GFR Calc Estimated GFR (MDRD) Non-Af Amer 46 mL/min >60 [facility] Comment on above: Non- GFR Calc RBC Auto (Bld) [#/Vol]Ordere d By: Queta Cortez on 12-27-2023 RBC (Bld) [#/Vol] 4.67 10*6/uL 4.2-5.4 [facility] Serum or plasma calcium melanie urement (mass/volume)Ordered By: Queta Cortez on 12-27-2023 Calcium [Mass/Vol] 11.2 mg/dL 8.5-10.1 [facility] Serum or plasma creatinine m easurement (mass/volume)Ordered By: Queta Cortez on 12-27-2023 Creatinine [Mass/Vol] 1.19 mg/dL 0.55-1.02 [facility] Comment on above: The validity of the calculated GFR & GFRAA in patients over 70 years has not been determined. Clinical correlation is essential. Serum or plasma urea nitroge n measurement (mass/volume)Ordered By: Queta Cortez on 12-27-2023 Urea nitrogen [Mass/Vol] 22 mg/dL 7-18 [facility] Thin prep Papanicolaou smear with manual screeningOrdered By: Queta Cortez on 12-27-2023 Thin prep Papanicolaou smear with manual screening 4 5-15 [facility] Whole blood hemoglobin A1c/t otal hemoglobin ratio (mass fraction)Ordered By: Nestor Bartlett on 12-27-2023 HbA1c (Bld) [Mass fraction] 9.4 % 3.8-5.6 [facility] Comment on above: Normal < 5.7 % Predi abetic 5.7 - 6.4 % Diabetic >or= 6.5 % Please note range changes. Absolute lymphocyte countOrd ered By: Ramone Smiley on 10-26-2023 Lymphocytes Auto (Unsp spec) [#/Vol] 2.86 10*3/uL 0.83-4.51 [facility] Automated lymphocyte count a s percentage of total leukocytesOrdered By: Ramone Smiley on 10-26-2023 Lymphocytes/100 WBC Auto (Unsp spec) 31.9 % 19-41 [facility] Basophil percentageOrdered B y: Ramone Smiley on 10-26-2023 Basophils/100 WBC (Bld) 0.6 % 0-1 [facility] Bilirubin [Mass/Vol] 0.30 mg/dL 0.20-1.00 [facility] Comment on above: For patients on eltr ombopag therapy, use of Dimension [place] TBIL is not recommended. Chloride [Moles/Vol] 101 mmol/L 98-107 [facility] Eosinophils/100 WBC (Bld) 2.6 % 0-5 [facility] Glucose [Mass/Vol] 135 mg/dL 74-106 [facility] Comment on above: Fasting Glucose resu lt greater than or equal to 126 mg/dL suggests DIABETES MELLITUS per A.D.A. criteria. Hemoglobin (Bld) [Mass/Vol] 10.9 g/dL 12.0-15.0 [facility] Monocytes/100 WBC (Bld) 8.0 % 0-10 [facility] Neutrophils (Bld) [#/Vol] 5.1 10*3/uL 2.0-7.7 [facility] Neutrophils/100 WBC (Bld) 56.6 % 47-70 [facility] Potassium [Moles/Vol] 4.5 mmol/L 3.5-5.1 [facility] Protein [Mass/Vol] 8.6 g/dL 6.4-8.2 [facility] Sodium [Moles/Vol] 134 mmol/L 136-145 [facility] WBC (Bld) [#/Vol] 9.0 10*3/uL 4.4-11.0 [facility] Determination of erythrocyte mean corpuscular volume (MCV)Ordered By: Ramone Smiley on 10-26-2023 MCV (RBC) [Entitic vol] 85.8 fL 81-99 [facility] Erythrocyte distribution wid th ratioOrdered By: Ramone Smiley on 10-26-2023 Erythrocyte distribution width (RBC) [Ratio] 17.5 % 11.6-14.6 [facility] Erythrocyte distribution wid th standard deviationOrdered By: Ramone Smiley on 10-26-2023 Erythrocyte distribution width (RBC) [Entitic vol] 55.2 fL 35.1-43.9 [facility] Hematocrit Auto (Bld) [Volum e fraction]Ordered By: Ramone mSiley on 10-26-2023 Hematocrit (Bld) [Volume fraction] 36.2 % 37-47 [facility] Immature granulocytes/100 WB C Auto (Bld)Ordered By: Ramone Smiley on 10-26-2023 Immature granulocytes/100 WBC (Bld) 0.300 % 0.0-0.9 [facility] Comment on above: IG% - Immature Granu locytes (promyelocytes, myelocytes and metamyelocytes) > 1% indicates that a LEFT SHIFT is Present. Laboratory - Chemistry and C hemistry - challengeOrdered By: Ramone Smiley on 10-26-2023 Albumin/Globulin [Mass ratio] 0.6 {ratio} 0.9-2.4 [facility] ALP [Catalytic activity/Vol] 109 U/L 45-117 [facility] ALT [Catalytic activity/Vol] 17 U/L 13-56 [facility] CO2 [Moles/Vol] 27.0 mmol/L 21.0-32.0 [facility] Cobalamin (Vitamin B12) [Mass/Vol] 654 pg/mL 211-911 [facility] Ferritin [Mass/Vol] 99 ng/mL 8-252 [facility] Globulin (S) [Mass/Vol] 5.4 g/dL 2.2-4.2 [facility] Urea nitrogen/Creatinine [Mass ratio] 17.6 mg/mg 10-20 [facility] Laboratory - Hematology and Cell countsOrdered By: Ramone mSiley on 10-26-2023 MCH (RBC) [Entitic mass] 25.8 pg 27.0-32.0 [facility] MCHC (RBC) [Mass/Vol] 30.1 g/dL 32-36 [facility] Nucleated RBC/100 WBC (Bld) [Ratio] 0 % 0-5 [facility] Platelet mean volume (Bld) [Entitic vol] 11.6 fL 6.2-12.0 [facility] Platelets (Bld) [#/Vol] 268 10*3/uL 150-450 [facility] No Panel InformationOrdered By: Ramone Smiley on 10-26-2023 Estimated GFR (MDRD) Amer 67 mL/min >60 [facility] Comment on above: GFR Calc Estimated GFR (MDRD) Non-Af Amer 55 mL/min >60 [facility] Comment on above: Non- GFR Calc Folate 23.70 ng/mL 3.1-55.4 [facility] Vitamin D 25-Hydroxy 34.5 ng/mL [facility] Comment on above: Vitamin D 25(OH) Sta tus Range Deficiency <20 ng/mL (50nmol/L) Insufficiency 20 - 30 ng/mL (50 - 75 nmol/L) Sufficiency 30 - 100 ng/mL (75 - 250 nmol/L) Toxicity >100 ng/mL (>250 nmol/L) RBC Auto (Bld) [#/Vol]Ordere d By: Ramone Smiley on 10-26-2023 RBC (Bld) [#/Vol] 4.22 10*6/uL 4.2-5.4 [facility] Serum or plasma calcium melanie urement (mass/volume)Ordered By: Ramone Smiley on 10-26-2023 Calcium [Mass/Vol] 11.2 mg/dL 8.5-10.1 [facility] Serum or plasma creatinine m easurement (mass/volume)Ordered By: Ramone Smiley on 10-26-2023 Creatinine [Mass/Vol] 1.02 mg/dL 0.55-1.02 [facility] Comment on above: The validity of the calculated GFR & GFRAA in patients over 70 years has not been determined. Clinical correlation is essential. Serum or plasma thyroid stim ulating hormone (TSH) measurement (units/volume)Ordered By: Ramone Smiley on 10-26-2023 TSH Qn 0.66 uIU/mL 0.358-3.74 [facility] Serum or plasma urea nitroge n measurement (mass/volume)Ordered By: Ramone Smiley on 10-26-2023 Urea nitrogen [Mass/Vol] 18 mg/dL 7-18 [facility] Thin prep Papanicolaou smear with manual screeningOrdered By: Ramone Smiley on 10-26-2023 Thin prep Papanicolaou smear with manual screening 3.2 g/dL 3.2-5.0 [facility] Thin prep Papanicolaou smear with manual screening 18 U/L 15-37 [facility] Thin prep Papanicolaou smear with manual screening 6 5-15 [facility] Whole blood hemoglobin A1c/t otal hemoglobin ratio (mass fraction)Ordered By: Ramone Smiley on 10-26-2023 HbA1c (Bld) [Mass fraction] 8.2 % 3.8-5.6 [facility] Comment on above: Normal < 5.7 % Predi abetic 5.7 - 6.4 % Diabetic >or= 6.5 % Please note range changes. Basophil percentageOrdered B y: Nestor Bartlett on 08-17-2023 Chloride [Moles/Vol] 105 mmol/L 98-107 [facility] Glucose [Mass/Vol] 167 mg/dL 74-106 [facility] Comment on above: Fasting Glucose resu lt greater than or equal to 126 mg/dL suggests DIABETES MELLITUS per A.D.A. criteria. Potassium [Moles/Vol] 4.9 mmol/L 3.5-5.1 [facility] Sodium [Moles/Vol] 139 mmol/L 136-145 [facility] WBC (Bld) [#/Vol] 8.4 10*3/uL 4.4-11.0 [facility] Blood erythrocytes count (nu mber/volume)Ordered By: Nestor Bartlett on 08-17-2023 RBC (Bld) [#/Vol] 3.41 10*6/uL 4.2-5.4 [facility] Blood hemoglobin measurement (mass/volume)Ordered By: Nestor Bartlett on 08-17-2023 Hemoglobin (Bld) [Mass/Vol] 8.9 g/dL 12.0-15.0 [facility] Blood platelet mean volumeOr dered By: Nestor Bartlett on 08-17-2023 Platelet mean volume (Bld) [Entitic vol] 10.4 fL 6.2-12.0 [facility] Determination of erythrocyte mean corpuscular volume (MCV)Ordered By: Nestor Bartlett on 08-17-2023 MCV (RBC) [Entitic vol] 84.5 fL 81-99 [facility] Glucose Glucometer (BldC) [M ass/Vol]Ordered By: Sandeep Denson on 08-17-2023 Glucose [Mass/Vol] 267 mg/dL 74-106 [facility] Comment on above: MANAGEMENT OF PATIEN T CARE PER NURSING PROTOCOL Hematocrit Auto (Bld) [Volum e fraction]Ordered By: Nestor Bartlett on 08-17-2023 Hematocrit (Bld) [Volume fraction] 28.8 % 37-47 [facility] Laboratory - Chemistry and C hemistry - challengeOrdered By: Nestor Bartlett on 08-17-2023 CO2 [Moles/Vol] 30.0 mmol/L 21.0-32.0 [facility] Urea nitrogen/Creatinine [Mass ratio] 19.9 mg/mg 10-20 [facility] Laboratory - Hematology and Cell countsOrdered By: Nestor Bartlett on 08-17-2023 Erythrocyte distribution width (RBC) [Entitic vol] 55.6 fL 35.1-43.9 [facility] Erythrocyte distribution width (RBC) [Ratio] 17.9 % 11.6-14.6 [facility] MCH (RBC) [Entitic mass] 26.1 pg 27.0-32.0 [facility] MCHC Auto (RBC) [Mass/Vol]Or dered By: Nestor Bartlett on 08-17-2023 MCHC (RBC) [Mass/Vol] 30.9 g/dL 32-36 [facility] No Panel InformationOrdered By: Nestor Bartlett on 08-17-2023 Estimated Creatinine Clearance Calc 41.47 ml/min [facility] Estimated GFR (MDRD) Amer 77 mL/min >60 [facility] Comment on above: GFR Calc Estimated GFR (MDRD) Non-Af Amer 64 mL/min >60 [facility] Comment on above: Non- GFR Calc Platelets bldOrdered By: Neida Bartlett on 08-17-2023 Platelets (Bld) [#/Vol] 480 10*3/uL 150-450 [facility] Serum or plasma calcium melanie urement (mass/volume)Ordered By: Nestor Bartlett on 08-17-2023 Calcium [Mass/Vol] 10.6 mg/dL 8.5-10.1 [facility] Serum or plasma creatinine m easurement (mass/volume)Ordered By: Nestor Bartlett on 08-17-2023 Creatinine [Mass/Vol] 0.91 mg/dL 0.55-1.02 [facility] Comment on above: The validity of the calculated GFR & GFRAA in patients over 70 years has not been determined. Clinical correlation is essential. Serum or plasma urea nitroge n measurement (mass/volume)Ordered By: Nestor Bartlett on 08-17-2023 Urea nitrogen [Mass/Vol] 18 mg/dL - [facility] Thin prep Papanicolaou smear with manual screeningOrdered By: Nestor Bartlett on 08-17-2023 Thin prep Papanicolaou smear with manual screening 4 5-15 [facility] Absolute lymphocyte countOrd ered By: Heydi Amaya on 08-14-2023 Lymphocytes Auto (Unsp spec) [#/Vol] 1.25 10*3/uL 0.83-4.51 [facility] Basophil percentageOrdered B y: Heydi Amaya on 08-14-2023 Basophil percentage 1.7 mg/dL 2.5-4.9 [facility] Basophils/100 WBC (Bld) 0.3 % 0-1 [facility] Eosinophils/100 WBC (Bld) 0.6 % 0-5 [facility] Neutrophils (Bld) [#/Vol] 9.0 10*3/uL 2.0-7.7 [facility] Neutrophils/100 WBC (Bld) 79.7 % 47-70 [facility] Blood lymphocytes/100 leukoc ytesOrdered By: Heydi Amaya on 08-14-2023 Lymphocytes/100 WBC (Bld) 11.1 % 19-41 [facility] Blood monocytes/100 leukocyt esOrdered By: Heydi Amaya on 08-14-2023 Monocytes/100 WBC (Bld) 6.1 % 0-10 [facility] Iron measurement (mass/mass) Ordered By: Nestor Bartlett on 08-14-2023 Iron (Unsp spec) [Mass/Mass] 14 ug/dL 50-170 [facility] Laboratory - Chemistry and C hemistry - challengeOrdered By: Nestor Bartlett on 08-14-2023 Cobalamin (Vitamin B12) [Mass/Vol] 250 pg/mL 211-911 [facility] Laboratory - Chemistry and C hemistry - challengeOrdered By: Heydi Amaya on 08-14-2023 Free T4 [Mass/Vol] 1.51 ng/dL 0.76-1.46 [facility] Magnesium [Mass/Vol] 2.1 mg/dL 1.6-2.6 [facility] Laboratory - Hematology and Cell countsOrdered By: Heydi Amaya on 08-14-2023 Immature granulocytes/100 WBC (Bld) 2.200 % 0.0-0.9 [facility] Comment on above: IG% - Immature Granu locytes (promyelocytes, myelocytes and metamyelocytes) > 1% indicates that a LEFT SHIFT is Present. Nucleated RBC/100 WBC (Bld) [Ratio] 0 % 0-5 [facility] No Panel InformationOrdered By: Heydi Amaya on 08-14-2023 Free Triiodothyronine (T3) pg/dL 1.9 pg/mL 2.18-3.98 [facility] Parathyroid Hormone (Intact) 153.7 pg/mL 18.4-80.1 [facility] Thyroid Stimulating Hormone (TSH) 0.01 uIU/mL 0.358-3.74 [facility] Vitamin D 25-Hydroxy 39.9 ng/mL [facility] Comment on above: Vitamin D 25(OH) Sta tus Range Deficiency <20 ng/mL (50nmol/L) Insufficiency 20 - 30 ng/mL (50 - 75 nmol/L) Sufficiency 30 - 100 ng/mL (75 - 250 nmol/L) Toxicity >100 ng/mL (>250 nmol/L) No Panel InformationOrdered By: Nestor Bartlett on 08-14-2023 Total Iron Binding Capacity 197 ug/dL 250-450 [facility] Serum or plasma ferritin rubina surement (mass/volume)Ordered By: Nestor Bartlett on 08-14-2023 Ferritin [Mass/Vol] 1578 ng/mL 8-252 [facility] Serum or plasma folate measu rement (mass/volume)Ordered By: Nestor Bartlett on 08-14-2023 Folate [Mass/Vol] 2.90 ng/mL 3.1-55.4 [facility] Serum or plasma iron saturat ion measurement (mass fraction)Ordered By: Nestor Bartlett on 08-14-2023 Iron saturation [Mass fraction] 7.1 % 15.0-55.0 [facility] Thin prep Papanicolaou smear with manual screeningOrdered By: Heydi Amaya on 08-14-2023 Thin prep Papanicolaou smear with manual screening 285 mOsm/KG 280-301 [facility] Absolute lymphocyte countOrd ered By: Robert Allison on 08-13-2023 Lymphocytes Auto (Unsp spec) [#/Vol] 1.37 10*3/uL 0.83-4.51 [facility] Basophil percentageOrdered B y: Harriet Keegan on 08-13-2023 Basophil percentage 10-25 SEEN /hpf 0-5 [facility] Lactate [Moles/Vol] 1.2 mmol/L 0.4-2.0 [facility] Basophils/100 WBC (Bld) 0.3 % 0-1 [facility] Bilirubin [Mass/Vol] 0.60 mg/dL 0.20-1.00 [facility] Comment on above: For patients on eltr ombopag therapy, use of Dimension [place] TBIL is not recommended. Chloride [Moles/Vol] 92 mmol/L 98-107 [facility] Eosinophils/100 WBC (Bld) 0.1 % 0-5 [facility] Glucose [Mass/Vol] 212 mg/dL 74-106 [facility] Comment on above: Glucose result great er than or equal to 200 mg/dLsuggests DIABETES MELLITUS per A.D.A. criteria. Neutrophils (Bld) [#/Vol] 12.1 10*3/uL 2.0-7.7 [facility] Neutrophils/100 WBC (Bld) 82.7 % 47-70 [facility] Potassium [Moles/Vol] 3.8 mmol/L 3.5-5.1 [facility] Comment on above: Moderate Hemolysis, Result may be falsely increased. Protein [Mass/Vol] 7.8 g/dL 6.4-8.2 [facility] Sodium [Moles/Vol] 127 mmol/L 136-145 [facility] WBC (Bld) [#/Vol] 14.7 10*3/uL 4.4-11.0 [facility] Bilirubin Test strip Ql (U)O rdered By: Robert Allison on 08-13-2023 Bilirubin Ql (U) Negative Negative [facility] Blood erythrocytes count (nu mber/volume)Ordered By: Robert Allison on 08-13-2023 RBC (Bld) [#/Vol] 3.83 10*6/uL 4.2-5.4 [facility] Blood hemoglobin measurement (mass/volume)Ordered By: Robert Allison on 08-13-2023 Hemoglobin (Bld) [Mass/Vol] 10.0 g/dL 12.0-15.0 [facility] Blood lymphocytes/100 leukoc ytesOrdered By: Robert Allison on 08-13-2023 Lymphocytes/100 WBC (Bld) 9.4 % 19-41 [facility] Blood monocytes/100 leukocyt esOrdered By: Robert Allison on 08-13-2023 Monocytes/100 WBC (Bld) 6.1 % 0-10 [facility] Blood platelet mean volumeOr dered By: Robert Allison on 08-13-2023 Platelet mean volume (Bld) [Entitic vol] 10.8 fL 6.2-12.0 [facility] Culture, urineOrdered By: Ester Allison on 08-13-2023 Bacteria identified Cx Nom (U) Klebsiella pneumoniae sp pneum [facility] Determination of erythrocyte mean corpuscular volume (MCV)Ordered By: Robert Allison on 08-13-2023 MCV (RBC) [Entitic vol] 85.1 fL 81-99 [facility] Hematocrit Auto (Bld) [Volum e fraction]Ordered By: Robert Allison on 08-13-2023 Hematocrit (Bld) [Volume fraction] 32.6 % 37-47 [facility] Influenza virus A and B and SARS-CoV-2 (COVID-19) Ag panel - Upper respiratory specimOrdered By: Robert Allison on 08-13-2023 SARS-CoV-2 (COVID-19) RNA BEBETO+probe Ql (Resp) [facility] Ketones Test strip Ql (U)Ord ered By: Robert Allison on 08-13-2023 Ketones Ql (U) 50 mg/dl Negative [facility] Laboratory - Chemistry and C hemistry - challengeOrdered By: Heydi Amaya on 08-13-2023 Sodium (U) [Moles/Vol] 24 mmol/L Not Establ. [facility] Laboratory - Chemistry and C hemistry - challengeOrdered By: Robert Allison on 08-13-2023 ALP [Catalytic activity/Vol] 105 U/L 45-117 [facility] ALT [Catalytic activity/Vol] 29 U/L 13-56 [facility] CO2 [Moles/Vol] 23.0 mmol/L 21.0-32.0 [facility] Globulin (S) [Mass/Vol] 5.6 g/dL 2.2-4.2 [facility] Urea nitrogen/Creatinine [Mass ratio] 26.3 mg/mg 10-20 [facility] - Hematology and Cell countsOrdered By: Robert Allison on 08-13-2023 Erythrocyte distribution width (RBC) [Entitic vol] 53.7 fL 35.1-43.9 [facility] Erythrocyte distribution width (RBC) [Ratio] 17.2 % 11.6-14.6 [facility] Immature granulocytes/100 WBC (Bld) 1.400 % 0.0-0.9 [facility] Comment on above: IG% - Immature Granu locytes (promyelocytes, myelocytes and metamyelocytes) > 1% indicates that a LEFT SHIFT is Present. 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 Mucus LM Ql (Urine sed)Order ed By: Robert Allison on 08-13-2023 Mucus Ql (Urine sed) 0 SEEN /hpf [facility] Nitrite Test strip Ql (U)Ord ered By: Robert Allison on 08-13-2023 Nitrite Ql (U) Negative Negative [facility] No Panel InformationOrdered By: Heydi Amaya on 08-13-2023 Urine Potassium 8.0 mmol/L Not Establ. [facility] Urine Urea Nitrogen 334 mg/dL NO RANGE EST. [facility] No Panel InformationOrdered By: Robert Allison on 08-13-2023 Estimated Creatinine Clearance Calc 31.98 ml/min [facility] Estimated GFR (MDRD) Amer 57 mL/min >60 [facility] Comment on above: GFR Calc Estimated GFR (MDRD) Non-Af Amer 47 mL/min >60 [facility] Comment on above: Non- GFR Calc Troponin I High Sensitivity 39 pg/mL 3.0-54.0 [facility] Comment on above: Please Note: New Rosi t Units and Gender Specific Reference Ranges. For more information see Policy Stat Procedure [place] High Sensitivity Troponin (TNIH) and attachments. Platelets bldOrdered By: Rem us Keegan on 08-13-2023 Platelets (Bld) [#/Vol] 412 10*3/uL 150-450 [facility] Protein Test strip Ql (U)Ord ered By: Rem Ungmasood on 08-13-2023 Protein Ql (U) 30 mg/dl Negative [facility] Serum or plasma albumin melanie urement (mass/volume)[facility] Espin[facility] on 08-13-2023 Albumin [Mass/Vol] 2.2 g/dL 3.2-5.0 [facility] Serum or plasma albumin/glob ulin mass ratioOrdered By: [facility] Ungmasood on 08-13-2023 Albumin/Globulin [Mass ratio] 0.4 {ratio} 0.9-2.4 [facility] Serum or plasma calcium melanie urement (mass/volume)Ordered By[facility] Espin[facility] on 08-13-2023 Calcium [Mass/Vol] 10.5 mg/dL 8.5-10.1 [facility] Serum or plasma creatinine m easurement (mass/volume)Ordered By: [facility] on 08-13-2023 Creatinine [Mass/Vol] 1.18 mg/dL 0.55-1.02 [facility] Comment on above: The validity of the calculated GFR & GFRAA in patients over 70 years has not been determined. Clinical correlation is essential. Serum or plasma urea nitroge n measurement (mass/volume)Ordered By: [facility] Keegan on 08-13-2023 Urea nitrogen [Mass/Vol] 31 mg/dL 7-18 [facility] Squamous epithelial cells de tection in urine sediment by light microscopyOrdered By: Harrietus Allison on 08-13-2023 Epithelial cells.squamous LM Ql (Urine sed) 0 SEEN /hpf 5-10 [facility] Thin prep Papanicolaou smear with manual screeningOrdered By: Heydi Amaya on 08-13-2023 Thin prep Papanicolaou smear with manual screening 20 mmol/L Not Establ. [facility] Thin prep Papanicolaou smear with manual screeningOrdered By: Robert Allison on 08-13-2023 Thin prep Papanicolaou smear with manual screening 36 U/L [facility] Comment on above: Moderate Hemolysis, Result may be falsely increased. Thin prep Papanicolaou smear with manual screening 01-12 [facility] Upper respiratory specimen i nfluenza A virus, influenza B virus, and severe acute resOrdered By: Robert Allison on 08-13-2023 Upper respiratory specimen influenza A virus, influenza B virus, and severe acute res [facility] Urine blood detectionOrdered By: Robert Allison on 08-13-2023 RBC Ql (U) 50 /ul Negative [facility] RBC Ql (U) 0-5 SEEN /hpf 0-5 [facility] Urine clarityOrdered By: Harriet Allison on 08-13-2023 Clarity (U) Sl. Cloudy Clear [facility] Urine color determinationOrd ered By: Roebrt Allison on 08-13-2023 Color (U) Yellow Yellow [facility] Urine creatinine measurement (mass/volume)Ordered By: Heydi Amaya on 08-13-2023 Creatinine (U) [Mass/Vol] 37.60 mg/dL NO RANGE EST. [facility] Urine glucose detectionOrder ed By: Robert Allison on 08-13-2023 Glucose Ql (U) 1000 mg/dl Normal [facility] Urine leukocyte esterase det ection by dipstickOrdered By: Robert Allison on 08-13-2023 Leukocyte esterase Test strip Ql (U) 500 /ul Negative [facility] Urine osmolality measurement Ordered By: Heydi Amaya on 08-13-2023 Osmolality (U) [Osmolality] 269 mOsm/KG >50 [facility] Comment on above: Normal Urine Referen ce Ranges Random: 50 - 1200 mOsm/kg H20 depending on fluid intake Random: >850 mOsm/kg after 12 hour fluid restriction 24 hour: ~300 - 900 mOsm/kg H2O Urine pHOrdered By: Robert sibley on 08-13-2023 pH (U) 5.0 [pH] 5.0 - 8.0 [facility] Urine sediment bacteria coun t by microscopy (number/high power field)Ordered By: Robert Keegan on 08-13-2023 Bacteria LM.HPF (Urine sed) [#/Area] 3 /[HPF] None Seen [facility] Urine specific gravity measu rementOrdered By: Harriet Keegan on 08-13-2023 Specific gravity (U) [Rel density] 1.015 1.002-1.030 [facility] Urobilinogen Auto test strip Ql (U)Ordered By: Robert Allison on 08-13-2023 Urobilinogen Ql (U) Normal mg/dl Normal [facility] Absolute lymphocyte countOrd ered By: Winston Jairo on 07-18-2023 Lymphocytes Auto (Unsp spec) [#/Vol] 0.92 10*3/uL 0.83-4.51 [facility] Basophil percentageOrdered B y: Winston Gill on 07-18-2023 Basophil percentage >100 SEEN /hpf 0-5 [facility] Basophils/100 WBC (Bld) 0.4 % 0-1 [facility] Bilirubin [Mass/Vol] 0.40 mg/dL 0.20-1.00 [facility] Comment on above: For patients on eltr ombopag therapy, use of Dimension [place] TBIL is not recommended. Chloride [Moles/Vol] 95 mmol/L 98-107 [facility] Eosinophils/100 WBC (Bld) 0.7 % 0-5 [facility] Glucose [Mass/Vol] 139 mg/dL 74-106 [facility] Comment on above: Fasting Glucose resu lt greater than or equal to 126 mg/dL suggests DIABETES MELLITUS per A.D.A. criteria. Neutrophils (Bld) [#/Vol] 5.4 10*3/uL 2.0-7.7 [facility] Neutrophils/100 WBC (Bld) 76.5 % 47-70 [facility] Potassium [Moles/Vol] 3.7 mmol/L 3.5-5.1 [facility] Protein [Mass/Vol] 7.4 g/dL 6.4-8.2 [facility] Sodium [Moles/Vol] 131 mmol/L 136-145 [facility] WBC (Bld) [#/Vol] 7.0 10*3/uL 4.4-11.0 [facility] Bilirubin Test strip Ql (U)O rdered By: Winston Gill on 07-18-2023 Bilirubin Ql (U) Negative Negative [facility] Blood erythrocytes count (nu mber/volume)Ordered By: Winston Gill on 07-18-2023 RBC (Bld) [#/Vol] 3.85 10*6/uL 4.2-5.4 [facility] Blood hemoglobin measurement (mass/volume)Ordered By: Winston Gill on 07-18-2023 Hemoglobin (Bld) [Mass/Vol] 10.8 g/dL 12.0-15.0 [facility] Blood lymphocytes/100 leukoc ytesOrdered By: Winston Gill on 07-18-2023 Lymphocytes/100 WBC (Bld) 13.1 % 19-41 [facility] Blood monocytes/100 leukocyt esOrdered By: Winston Gill on 07-18-2023 Monocytes/100 WBC (Bld) 8.0 % 0-10 [facility] Blood platelet mean volumeOr dered By: Winston Gill on 07-18-2023 Platelet mean volume (Bld) [Entitic vol] 10.0 fL 6.2-12.0 [facility] Culture, urineOrdered By: Devyn Rea on 07-18-2023 Bacteria identified Cx Nom (U) Escherichia coli [facility] Bacteria identified Cx Nom (U) Klebsiella pneumoniae sp pneum [facility] Determination of erythrocyte mean corpuscular volume (MCV)Ordered By: Winston Gill on 07-18-2023 MCV (RBC) [Entitic vol] 87.0 fL 81-99 [facility] Hematocrit Auto (Bld) [Volum e fraction]Ordered By: Winston Gill on 07-18-2023 Hematocrit (Bld) [Volume fraction] 33.5 % 37-47 [facility] Ketones Test strip Ql (U)Ord ered By: Winston Gill on 07-18-2023 Ketones Ql (U) 50 mg/dl Negative [facility] Laboratory - Chemistry and C hemistry - challengeOrdered By: Winston Gill on 07-18-2023 ALP [Catalytic activity/Vol] 93 U/L 45-117 [facility] ALT [Catalytic activity/Vol] 13 U/L 13-56 [facility] CO2 [Moles/Vol] 27.0 mmol/L 21.0-32.0 [facility] Globulin (S) [Mass/Vol] 4.8 g/dL 2.2-4.2 [facility] Urea nitrogen/Creatinine [Mass ratio] 15.6 mg/mg 10-20 [facility] - Hematology and Cell countsOrdered By: Winston Gill on 07-18-2023 Erythrocyte distribution width (RBC) [Entitic vol] 52.4 fL 35.1-43.9 [facility] Erythrocyte distribution width (RBC) [Ratio] 16.4 % 11.6-14.6 [facility] Immature granulocytes/100 WBC (Bld) 1.300 % 0.0-0.9 [facility] Comment on above: IG% - Immature Granu locytes (promyelocytes, myelocytes and metamyelocytes) > 1% indicates that a LEFT SHIFT is Present. MCH (RBC) [Entitic mass] 28.1 pg 27.0-32.0 [facility] Nucleated RBC/100 WBC (Bld) [Ratio] 0 % 0-5 [facility] MCHC Auto (RBC) [Mass/Vol]Or dered By: Winston iGll on 07-18-2023 MCHC (RBC) [Mass/Vol] 32.2 g/dL 32-36 [facility] Mucus LM Ql (Urine sed)Order ed By: Winston Gill on 07-18-2023 Mucus Ql (Urine sed) 0 SEEN /hpf [facility] Nitrite Test strip Ql (U)Ord ered By: Winston Gill on 07-18-2023 Nitrite Ql (U) Negative Negative [facility] No Panel InformationOrdered By: Winston Gill on 07-18-2023 Estimated Creatinine Clearance Calc 45.46 ml/min [facility] Estimated GFR (MDRD) Amer 85 mL/min >60 [facility] Comment on above: GFR Calc Estimated GFR (MDRD) Non-Af Amer 70 mL/min >60 [facility] Comment on above: Non- GFR Calc Platelets bldOrdered By: Tre Gill on 11-18-2023 Platelets (Bld) [#/Vol] 370 10*3/uL 150-450 [facility] Protein Test strip Ql (U)Ord ered By: Winston Gill on 07-18-2023 Protein Ql (U) 100 mg/dl Negative [facility] Serum or plasma albumin melanie urement (mass/volume)Ordered By: Winston Gill on 07-18-2023 Albumin [Mass/Vol] 2.6 g/dL 3.2-5.0 [facility] Serum or plasma albumin/glob ulin mass ratioOrdered By: Winston Gill on 07-18-2023 Albumin/Globulin [Mass ratio] 0.5 {ratio} 0.9-2.4 [facility] Serum or plasma calcium melanie urement (mass/volume)Ordered By: Winston Gill on 07-18-2023 Calcium [Mass/Vol] 10.3 mg/dL 8.5-10.1 [facility] Serum or plasma creatinine m easurement (mass/volume)Ordered By: Winston Gill on 07-18-2023 Creatinine [Mass/Vol] 0.83 mg/dL 0.55-1.02 [facility] Comment on above: The validity of the calculated GFR & GFRAA in patients over 70 years has not been determined. Clinical correlation is essential. Serum or plasma urea nitroge n measurement (mass/volume)Ordered By: Winston Gill on 07-18-2023 Urea nitrogen [Mass/Vol] 13 mg/dL 7- [facility] Squamous epithelial cells de tection in urine sediment by light microscopyOrdered By: Winston Gill on 07-18-2023 Epithelial cells.squamous LM Ql (Urine sed) 5-10 SEEN /hpf 5-10 [facility] Thin prep Papanicolaou smear with manual screeningOrdered By: Winston Gill on 07-18-2023 Thin prep Papanicolaou smear with manual screening 26 U/L 15-37 [facility] Thin prep Papanicolaou smear with manual screening 9 5-15 [facility] Urine blood detectionOrdered By: Winston Gill on 07-18-2023 RBC Ql (U) 50 /ul Negative [facility] RBC Ql (U) 0-5 SEEN /hpf 0-5 [facility] Urine clarityOrdered By: Tre Gill on 07-18-2023 Clarity (U) Cloudy Clear [facility] Urine color determinationOrd ered By: Winston Gill on 07-18-2023 Color (U) Yellow Yellow [facility] Urine glucose detectionOrder ed By: Winston Gill on 07-18-2023 Glucose Ql (U) 1000 mg/dl Normal [facility] Urine leukocyte esterase det ection by dipstickOrdered By: Winston Gill on 07-18-2023 Leukocyte esterase Test strip Ql (U) 500 /ul Negative [facility] Urine pHOrdered By: Winston castillo on 07-18-2023 pH (U) 5.0 [pH] 5.0 - 8.0 [facility] Urine sediment bacteria coun t by microscopy (number/high power field)Ordered By: Winston Gill on 07-18-2023 Bacteria LM.HPF (Urine sed) [#/Area] 3 /[HPF] None Seen [facility] Urine sediment leukocyte lisandro t count by microscopy (number/low power field)Ordered By: Winston Gill on 07-18-2023 WBC casts LM.LPF (Urine sed) [#/Area] 0-5 SEEN /lpf None Seen [facility] Urine specific gravity measu rementOrdered By: Winston Gill on 07-18-2023 Specific gravity (U) [Rel density] 1.020 1.002-1.030 [facility] Urobilinogen Auto test strip Ql (U)Ordered By: Winston Gill on 07-18-2023 Urobilinogen Ql (U) 1 mg/dl Normal [facility] No Panel Informationon 07-15 POC SARS CoV-2 Antigen Negative [facility] Amorphous sediment detection in urine sediment by light microscopyOrdered By: Cheryl Mendez on 06-01-2023 Amorphous sediment LM Ql (Urine sed) 1+ URATE [facility] Basophil percentageOrdered B y: Cheryl Mendez on 06-01-2023 Basophil percentage 5-10 SEEN /hpf 0-5 [facility] Bilirubin Test strip Ql (U)O rdered By: Cheryl Mendez on 06-01-2023 Bilirubin Ql (U) Negative Negative [facility] Ketones Test strip Ql (U)Ord ered By: Cheryl Mendez on 06-01-2023 Ketones Ql (U) Negative Negative [facility] Mucus LM Ql (Urine sed)Order ed By: Cheryl Mendez on 06-01-2023 Mucus Ql (Urine sed) 0 SEEN /hpf [facility] Nitrite Test strip Ql (U)Ord ered By: Cheryl Mendez on 06-01-2023 Nitrite Ql (U) Negative Negative [facility] No Panel InformationOrdered By: Cheryl Mendez on 06-01-2023 Urine Microalbumin/Creatinine Ratio 173.1 mg/g CRE <30 [facility] Protein Test strip Ql (U)Ord ered By: Cheryl Mendez on 06-01-2023 Protein Ql (U) 15 mg/dl Negative [facility] Squamous epithelial cells de tection in urine sediment by light microscopyOrdered By: Cheryl Mendez on 06-01-2023 Epithelial cells.squamous LM Ql (Urine sed) 0-5 SEEN /hpf 5-10 [facility] Thin prep Papanicolaou smear with manual screeningOrdered By: Cheryl Mendez on 06-01-2023 Thin prep Papanicolaou smear with manual screening 98.3 mg/L NO RANGE EST. [facility] Urine blood detectionOrdered By: Cheryl Mendez on 06-01-2023 RBC Ql (U) 25 /ul Negative [facility] RBC Ql (U) 0-5 SEEN /hpf 0-5 [facility] Urine clarityOrdered By: Dyana Mendez on 06-01-2023 Clarity (U) Cloudy Clear [facility] Urine color determinationOrd ered By: Cheryl Mendez on 06-01-2023 Color (U) Yellow Yellow [facility] Urine creatinine measurement (mass/volume)Ordered By: Cheryl Mendez on 06-01-2023 Creatinine (U) [Mass/Vol] 56.80 mg/dL NO RANGE EST. [facility] Urine glucose detectionOrder ed By: Cheryl Mendez on 06-01-2023 Glucose Ql (U) 1000 mg/dl Normal [facility] Urine leukocyte esterase det ection by dipstickOrdered By: Cheryl Mendez on 06-01-2023 Leukocyte esterase Test strip Ql (U) 100 /ul Negative [facility] Urine pHOrdered By: Nikki Mendez on 06-01-2023 pH (U) 5.0 [pH] 5.0 - 8.0 [facility] Urine sediment bacteria coun t by microscopy (number/high power field)Ordered By: Cheryl Mendez on 06-01-2023 Bacteria LM.HPF (Urine sed) [#/Area] 3 /[HPF] None Seen [facility] Urine specific gravity measu rementOrdered By: Cheryl Mendez on 06-01-2023 Specific gravity (U) [Rel density] 1.015 1.002-1.030 [facility] Urobilinogen Auto test strip Ql (U)Ordered By: Cheryl Mendez on 06-01-2023 Urobilinogen Ql (U) Normal mg/dl Normal [facility] Basophil percentageOrdered B y: Cheryl Mendez on 05-27-2023 Basophil percentage 2.7 mg/dL 2.5-4.9 [facility] Chloride [Moles/Vol] 102 mmol/L 98-107 [facility] Glucose [Mass/Vol] 220 mg/dL 74-106 [facility] Comment on above: Glucose result great er than or equal to 200 mg/dLsuggests DIABETES MELLITUS per A.D.A. criteria. Potassium [Moles/Vol] 3.9 mmol/L 3.5-5.1 [facility] Sodium [Moles/Vol] 137 mmol/L 136-145 [facility] Laboratory - Chemistry and C hemistry - challengeOrdered By: Cheryl Mendez on 05-27-2023 CO2 [Moles/Vol] 28.0 mmol/L 21.0-32.0 [facility] Urea nitrogen/Creatinine [Mass ratio] 10.0 mg/mg 10-20 [facility] No Panel InformationOrdered By: Cheryl Mendez on 05-27-2023 Estimated GFR (MDRD) Amer 89 mL/min >60 [facility] Comment on above: GFR Calc Estimated GFR (MDRD) Non-Af Amer 73 mL/min >60 [facility] Comment on above: Non- GFR Calc Parathyroid Hormone (Intact) 164.3 pg/mL 18.4-80.1 [facility] Vitamin D 25-Hydroxy 45.4 ng/mL [facility] Comment on above: Vitamin D 25(OH) Sta tus Range Deficiency <20 ng/mL (50nmol/L) Insufficiency 20 - 30 ng/mL (50 - 75 nmol/L) Sufficiency 30 - 100 ng/mL (75 - 250 nmol/L) Toxicity >100 ng/mL (>250 nmol/L) Serum or plasma albumin melanie urement (mass/volume)Ordered By: Cheryl Mendez on 05-27-2023 Albumin [Mass/Vol] 2.9 g/dL 3.2-5.0 [facility] Serum or plasma calcium melanie urement (mass/volume)Ordered By: Cheryl Mendez on 05-27-2023 Calcium [Mass/Vol] 10.7 mg/dL 8.5-10.1 [facility] Serum or plasma creatinine m easurement (mass/volume)Ordered By: Cheryl Mendez on 05-27-2023 Creatinine [Mass/Vol] 0.80 mg/dL 0.55-1.02 [facility] Comment on above: The validity of the calculated GFR & GFRAA in patients over 70 years has not been determined. Clinical correlation is essential. Serum or plasma urea nitroge n measurement (mass/volume)Ordered By: Cheryl Mendez on 05-27-2023 Urea nitrogen [Mass/Vol] 8 mg/dL 7-18 [facility] Culture, urineOrdered By: Allan Anguiano on 03-24-2023 Bacteria identified Cx Nom (U) Klebsiella pneumoniae sp pneum [facility] Bacteria identified Cx Nom (U) Klebsiella pneumoniae sp pneum [facility] Absolute lymphocyte countOrd ered By: Dr. Smiley on 01-28-2023 Lymphocytes Auto (Unsp spec) [#/Vol] 3.27 10*3/uL 0.83-4.51 [facility] Absolute lymphocyte countOrd ered By: Dr. Lockwood on 01-28-2023 Lymphocytes Auto (Unsp spec) [#/Vol] 2.27 10*3/uL 0.83-4.51 [facility] Basophil percentageOrdered B y: Dr. Smiley on 01-28-2023 Basophils/100 WBC (Bld) 0.5 % 0-1 [facility] Bilirubin [Mass/Vol] 0.30 mg/dL 0.20-1.00 [facility] Comment on above: For patients on eltr ombopag therapy, use of Dimension [place] TBIL is not recommended. Chloride [Moles/Vol] 99 mmol/L 98-107 [facility] Cholesterol [Mass/Vol] 145 mg/dL <200 [facility] Comment on above: <200 mg/dL Desirable 200-240 mg/dL Borderline >240 mg/dL High Risk Eosinophils/100 WBC (Bld) 2.3 % 0-5 [facility] Glucose [Mass/Vol] 182 mg/dL 74-106 [facility] Comment on above: Fasting Glucose resu lt greater than or equal to 126 mg/dL suggests DIABETES MELLITUS per A.D.A. criteria. Neutrophils (Bld) [#/Vol] 3.9 10*3/uL 2.0-7.7 [facility] Neutrophils/100 WBC (Bld) 50.0 % 47-70 [facility] Potassium [Moles/Vol] 3.6 mmol/L 3.5-5.1 [facility] Protein [Mass/Vol] 7.9 g/dL 6.4-8.2 [facility] Sodium [Moles/Vol] 134 mmol/L 136-145 [facility] Triglyceride [Mass/Vol] 119 mg/dL <199 [facility] Comment on above: The drugs N-Acetylcy steine and Metamizole may falsely depress this assay.Serum Triglycerides Reference Interval Normal <150 mg/dL Borderline high 150 - 199 mg/dL High 200 - 499 mg/dL Very High > or = 500 mg/dL WBC (Bld) [#/Vol] 7.7 10*3/uL 4.4-11.0 [facility] Basophil percentageOrdered B y: Dr. Lockwood on 01-28-2023 Basophils/100 WBC (Bld) 0.8 % 0-1 [facility] Chloride [Moles/Vol] 102 mmol/L 98-107 [facility] Eosinophils/100 WBC (Bld) 2.6 % 0-5 [facility] Glucose [Mass/Vol] 137 mg/dL 74-106 [facility] Comment on above: Fasting Glucose resu lt greater than or equal to 126 mg/dL suggests DIABETES MELLITUS per A.D.A. criteria. Neutrophils (Bld) [#/Vol] 3.8 10*3/uL 2.0-7.7 [facility] Neutrophils/100 WBC (Bld) 56.6 % 47-70 [facility] Potassium [Moles/Vol] 3.8 mmol/L 3.5-5.1 [facility] Protein [Mass/Vol] 7.4 g/dL 6.4-8.2 [facility] Sodium [Moles/Vol] 136 mmol/L 136-145 [facility] WBC (Bld) [#/Vol] 6.6 10*3/uL 4.4-11.0 [facility] Blood erythrocytes count (nu mber/volume)Ordered By: Dr. Smiley on 01-28-2023 RBC (Bld) [#/Vol] 4.10 10*6/uL 4.2-5.4 [facility] Blood erythrocytes count (nu mber/volume)Ordered By: Dr. Lockwood on 01-28-2023 RBC (Bld) [#/Vol] 3.83 10*6/uL 4.2-5.4 [facility] Blood hemoglobin measurement (mass/volume)Ordered By: Dr. Smiley on 01-28-2023 Hemoglobin (Bld) [Mass/Vol] 11.5 g/dL 12.0-15.0 [facility] Blood hemoglobin measurement (mass/volume)Ordered By: Dr. Lockwood on 01-28-2023 Hemoglobin (Bld) [Mass/Vol] 11.1 g/dL 12.0-15.0 [facility] Blood lymphocytes/100 leukoc ytesOrdered By: Dr. Smiley on 01-28-2023 Lymphocytes/100 WBC (Bld) 42.3 % - [facility] Blood lymphocytes/100 leukoc ytesOrdered By: Dr. Lockwood on 01-28-2023 Lymphocytes/100 WBC (Bld) 34.2 % - [facility] Blood monocytes/100 leukocyt esOrdered By: Dr. Smiley on 01-28-2023 Monocytes/100 WBC (Bld) 4.8 % 0-10 [facility] Blood monocytes/100 leukocyt esOrdered By: Dr. Lockwood on 01-28-2023 Monocytes/100 WBC (Bld) 5.6 % 0-10 [facility] Blood platelet mean volumeOr dered By: Dr. Smiley on 01-28-2023 Platelet mean volume (Bld) [Entitic vol] 9.8 fL 6.2-12.0 [facility] Blood platelet mean volumeOr dered By: Dr. Lockwood on 01-28-2023 Platelet mean volume (Bld) [Entitic vol] 9.3 fL 6.2-12.0 [facility] Determination of erythrocyte mean corpuscular volume (MCV)Ordered By: Dr. Smiley on 01-28-2023 MCV (RBC) [Entitic vol] 90.7 fL 81-99 [facility] Determination of erythrocyte mean corpuscular volume (MCV)Ordered By: Dr. Lockwood on 01-28-2023 MCV (RBC) [Entitic vol] 87.7 fL 81-99 [facility] Hematocrit Auto (Bld) [Volum e fraction]Ordered By: Dr. Smiley on 01-28-2023 Hematocrit (Bld) [Volume fraction] 37.2 % 37-47 [facility] Hematocrit Auto (Bld) [Volum e fraction]Ordered By: Dr. Lockwood on 01-28-2023 Hematocrit (Bld) [Volume fraction] 33.6 % 37-47 [facility] - Chemistry and C hemistry - challengeOrdered By: Dr. Smiley on 01-28-2023 ALP [Catalytic activity/Vol] 153 U/L 45-117 [facility] ALT [Catalytic activity/Vol] 20 U/L 13-56 [facility] CO2 [Moles/Vol] 25.0 mmol/L 21.0-32.0 [facility] Globulin (S) [Mass/Vol] 4.9 g/dL 2.2-4.2 [facility] Urea nitrogen/Creatinine [Mass ratio] 10.7 mg/mg 10-20 [facility] - Chemistry and C hemistry - challengeOrdered By: Dr. Lockwood on 01-28-2023 ALP [Catalytic activity/Vol] 140 U/L 45-117 [facility] CO2 [Moles/Vol] 27.0 mmol/L 21.0-32.0 [facility] Free T4 [Mass/Vol] 1.11 ng/dL 0.76-1.46 [facility] Globulin (S) [Mass/Vol] 4.5 g/dL 2.2-4.2 [facility] Urea nitrogen/Creatinine [Mass ratio] 11.5 mg/mg 10-20 [facility] - Hematology and Cell countsOrdered By: Dr. Smiley on 01-28-2023 Erythrocyte distribution width (RBC) [Entitic vol] 49.7 fL 35.1-43.9 [facility] Erythrocyte distribution width (RBC) [Ratio] 14.9 % 11.6-14.6 [facility] Immature granulocytes/100 WBC (Bld) 0.100 % 0.0-0.9 [facility] Comment on above: IG% - Immature Granu locytes (promyelocytes, myelocytes and metamyelocytes) > 1% indicates that a LEFT SHIFT is Present. MCH (RBC) [Entitic mass] 28.0 pg 27.0-32.0 [facility] Nucleated RBC/100 WBC (Bld) [Ratio] 0 % 0-5 [facility] - Hematology and Cell countsOrdered By: Dr. Lockwood on 01-28-2023 Erythrocyte distribution width (RBC) [Entitic vol] 47.3 fL 35.1-43.9 [facility] Erythrocyte distribution width (RBC) [Ratio] 14.8 % 11.6-14.6 [facility] Immature granulocytes/100 WBC (Bld) 0.200 % 0.0-0.9 [facility] Comment on above: IG% - Immature Granu locytes (promyelocytes, myelocytes and metamyelocytes) > 1% indicates that a LEFT SHIFT is Present. MCH (RBC) [Entitic mass] 29.0 pg 27.0-32.0 [facility] MCHC Auto (RBC) [Mass/Vol]Or dered By: Dr. Smiley on 01-28-2023 MCHC (RBC) [Mass/Vol] 30.9 g/dL -36 [facility] MCHC Auto (RBC) [Mass/Vol]Or dered By: Dr. Lockwood on 01-28-2023 MCHC (RBC) [Mass/Vol] 33.0 g/dL - [facility] Comment on above: Delta: 30.9 on 01/28-0 No Panel InformationOrdered By: Dr. Lockwood on 01-28-2023 Estimated Creatinine Clearance Calc 37.74 ml/min [facility] Estimated GFR (MDRD) Amer 91 mL/min >60 [facility] Comment on above: GFR Calc Estimated GFR (MDRD) Non-Af Amer 75 mL/min >60 [facility] Comment on above: Non- GFR Calc Free Triiodothyronine (T3) pg/dL 2.9 pg/mL 2.18-3.98 [facility] No Panel InformationOrdered By: Dr. Smiley on 01-28-2023 Estimated GFR (MDRD) Amer 84 mL/min >60 [facility] Comment on above: GFR Calc Estimated GFR (MDRD) Non-Af Amer 70 mL/min >60 [facility] Comment on above: Non- GFR Calc Parathyroid Hormone (Intact) 112.9 pg/mL 18.4-80.1 [facility] Thyroid Stimulating Hormone (TSH) 0.02 uIU/mL 0.358-3.74 [facility] Vitamin D 25-Hydroxy 66.1 ng/mL [facility] Comment on above: Vitamin D 25(OH) Sta tus Range Deficiency <20 ng/mL (50nmol/L) Insufficiency 20 - 30 ng/mL (50 - 75 nmol/L) Sufficiency 30 - 100 ng/mL (75 - 250 nmol/L) Toxicity >100 ng/mL (>250 nmol/L) Platelets bldOrdered By: Dr. Smiley on 01-28-2023 Platelets (Bld) [#/Vol] 349 10*3/uL 150-450 [facility] Platelets bldOrdered By: Dr. Lockwood on 01-28-2023 Platelets (Bld) [#/Vol] 285 10*3/uL 150-450 [facility] Serum or plasma albumin melanie urement (mass/volume)Ordered By: Dr. Smiley on 01-28-2023 Albumin [Mass/Vol] 3.0 g/dL 3.2-5.0 [facility] Serum or plasma albumin melanie urement (mass/volume)Ordered By: Dr. Lockwood on 01-28-2023 Albumin [Mass/Vol] 2.9 g/dL 3.2-5.0 [facility] Serum or plasma albumin/glob ulin mass ratioOrdered By: Dr. Smiley on 01-28-2023 Albumin/Globulin [Mass ratio] 0.6 {ratio} 0.9-2.4 [facility] Serum or plasma calcium melanie urement (mass/volume)Ordered By: Dr. Smiley on 01-28-2023 Calcium [Mass/Vol] 11.5 mg/dL 8.5-10.1 [facility] Serum or plasma calcium melanie urement (mass/volume)Ordered By: Dr. Lockwood on 01-28-2023 Calcium [Mass/Vol] 11.4 mg/dL 8.5-10.1 [facility] Serum or plasma cholesterol in HDL measurement (mass/volume)Ordered By: Dr. Smiley on 01-28-2023 Cholesterol in HDL [Mass/Vol] 46 mg/dL >40 [facility] Comment on above: The drugs N-Acetylcy steine and Metamizole may falsely depress this assay. Reference Range HDL <40 mg/dL Low HDL Cholesterol HDL >or= 60 mg/dL High HDL Cholesterol Serum or plasma cholesterol in VLDL measurement (mass/volume)Ordered By: Dr. Smiley on 01-28-2023 Cholesterol in VLDL [Mass/Vol] 24 mg/dL 5-40 [facility] Serum or plasma creatinine m easurement (mass/volume)Ordered By: Dr. Smiley on 01-28-2023 Creatinine [Mass/Vol] 0.84 mg/dL 0.55-1.02 [facility] Comment on above: The validity of the calculated GFR & GFRAA in patients over 70 years has not been determined. Clinical correlation is essential. Serum or plasma creatinine m easurement (mass/volume)Ordered By: Dr. Lockwood on 01-28-2023 Creatinine [Mass/Vol] 0.78 mg/dL 0.55-1.02 [facility] Comment on above: The validity of the calculated GFR & GFRAA in patients over 70 years has not been determined. Clinical correlation is essential. Serum or plasma low density lipoprotein (LDL) cholesterol measurement (mass/volume)Ordered By: Dr. Smiley on 01-28-2023 Cholesterol in LDL [Mass/Vol] 75 mg/dL 0-130 [facility] Serum or plasma urea nitroge n measurement (mass/volume)Ordered By: Dr. Smiley on 01-28-2023 Urea nitrogen [Mass/Vol] 9 mg/dL 7-18 [facility] Thin prep Papanicolaou smear with manual screeningOrdered By: Dr. Smiley on 01-28-2023 Thin prep Papanicolaou smear with manual screening 22 U/L - [facility] Thin prep Papanicolaou smear with manual screening 10 - [facility] Thin prep Papanicolaou smear with manual screeningOrdered By: Dr. Lockwood on 01-28-2023 Thin prep Papanicolaou smear with manual screening 18 U/L - [facility] Thin prep Papanicolaou smear with manual screening 7 - [facility] Whole blood hemoglobin A1c/t otal hemoglobin ratio (mass fraction)Ordered By: Dr. Smiley on 01-28-2023 HbA1c (Bld) [Mass fraction] 7.5 % 3.8-5.6 [facility] Comment on above: Normal < 5.7 % Predi abetic 5.7 - 6.4 % Diabetic >or= 6.5 % Please note range changes. Basophil percentageOrdered B y: Dr. Smiley on 12-09-2022 Bilirubin [Mass/Vol] 0.20 mg/dL 0.20-1.00 [facility] Comment on above: For patients on eltr ombopag therapy, use of Dimension [place] TBIL is not recommended. Chloride [Moles/Vol] 101 mmol/L 98-107 [facility] Glucose [Mass/Vol] 168 mg/dL 74-106 [facility] Comment on above: Fasting Glucose resu lt greater than or equal to 126 mg/dL suggests DIABETES MELLITUS per A.D.A. criteria. Potassium [Moles/Vol] 3.7 mmol/L 3.5-5.1 [facility] Protein [Mass/Vol] 8.7 g/dL 6.4-8.2 [facility] Sodium [Moles/Vol] 133 mmol/L 136-145 [facility] Laboratory - Chemistry and C hemistry - challengeOrdered By: Dr. Smiley on 12-09-2022 ALP [Catalytic activity/Vol] 164 U/L 45-117 [facility] ALT [Catalytic activity/Vol] 27 U/L 13-56 [facility] CO2 [Moles/Vol] 25.0 mmol/L 21.0-32.0 [facility] Globulin (S) [Mass/Vol] 5.4 g/dL 2.2-4.2 [facility] Urea nitrogen/Creatinine [Mass ratio] 10.7 mg/mg 10-20 [facility] No Panel InformationOrdered By: Dr. Smiley on 12-09-2022 Estimated GFR (MDRD) Amer 67 mL/min >60 [facility] Comment on above: GFR Calc Estimated GFR (MDRD) Non-Af Amer 55 mL/min >60 [facility] Comment on above: Non- GFR Calc Parathyroid Hormone (Intact) 175.0 pg/mL 18.4-80.1 [facility] Vitamin D 25-Hydroxy 92.6 ng/mL [facility] Comment on above: Vitamin D 25(OH) Sta tus Range Deficiency <20 ng/mL (50nmol/L) Insufficiency 20 - 30 ng/mL (50 - 75 nmol/L) Sufficiency 30 - 100 ng/mL (75 - 250 nmol/L) Toxicity >100 ng/mL (>250 nmol/L) Serum or plasma albumin melanie urement (mass/volume)Ordered By: Dr. Smiley on 12-09-2022 Albumin [Mass/Vol] 3.3 g/dL 3.2-5.0 [facility] Serum or plasma albumin/glob ulin mass ratioOrdered By: Dr. Smiley on 12-09-2022 Albumin/Globulin [Mass ratio] 0.6 {ratio} 0.9-2.4 [facility] Serum or plasma calcium melanie urement (mass/volume)Ordered By: Dr. Smiley on 12-09-2022 Calcium [Mass/Vol] 11.4 mg/dL 8.5-10.1 [facility] Serum or plasma creatinine m easurement (mass/volume)Ordered By: Dr. Smiley on 12-09-2022 Creatinine [Mass/Vol] 1.03 mg/dL 0.55-1.02 [facility] Comment on above: The validity of the calculated GFR & GFRAA in patients over 70 years has not been determined. Clinical correlation is essential. Serum or plasma urea nitroge n measurement (mass/volume)Ordered By: Dr. Smiley on 12-09-2022 Urea nitrogen [Mass/Vol] 11 mg/dL 7-18 [facility] Thin prep Papanicolaou smear with manual screeningOrdered By: Dr. Smiley on 12-09-2022 Thin prep Papanicolaou smear with manual screening 20 U/L 15-37 [facility] Thin prep Papanicolaou smear with manual screening 7 5-15 [facility] Whole blood hemoglobin A1c/t otal hemoglobin ratio (mass fraction)Ordered By: Dr. Smiley on 12-09-2022 HbA1c (Bld) [Mass fraction] 7.4 % 3.8-5.6 [facility] Comment on above: Normal < 5.7 % Predi abetic 5.7 - 6.4 % Diabetic >or= 6.5 % Please note range changes. Absolute lymphocyte counton 07-14-2022 Lymphocytes Auto (Unsp spec) [#/Vol] 2.79 10*3/uL 0.83-4.51 [facility] Work Phone: Basophil percentageon 2021 Basophil percentage 25-50 SEEN /hpf 0-5 [facility] Work Phone: Basophils/100 WBC (Bld) 0.5 % 0-1 [facility] Work Phone: Bilirubin [Mass/Vol] 0.30 mg/dL 0.20-1.00 [facility] Work Phone: Comment on above: For patients on eltr ombopag therapy, use of Dimension [place] TBIL is not recommended. Chloride [Moles/Vol] 102 mmol/L 98-107 [facility] Work Phone: Eosinophils/100 WBC (Bld) 3.2 % 0-5 [facility] Work Phone: Glucose [Mass/Vol] 143 mg/dL 74-106 [facility] Work Phone: Comment on above: Fasting Glucose resu lt greater than or equal to 126 mg/dL suggests DIABETES MELLITUS per A.D.A. criteria. Neutrophils (Bld) [#/Vol] 4.5 10*3/uL 2.0-7.7 [facility] Work Phone: Neutrophils/100 WBC (Bld) 54.7 % 47-70 [facility] Work Phone: Potassium [Moles/Vol] 4.9 mmol/L 3.5-5.1 [facility] Work Phone: Comment on above: Moderate Hemolysis, Result may be falsely increased. Protein [Mass/Vol] 8.3 g/dL 6.4-8.2 [facility] Work Phone: Sodium [Moles/Vol] 136 mmol/L 136-145 [facility] Work Phone: WBC (Bld) [#/Vol] 8.1 10*3/uL 4.4-11.0 [facility] Work Phone: Bilirubin Test strip Ql (U)o n 07-14-2022 Bilirubin Ql (U) Negative Negative [facility] Work Phone: [phone] Blood erythrocytes count (nu mber/volume)on 07-14-2022 RBC (Bld) [#/Vol] 4.15 10*6/uL 4.2-5.4 [facility] Work Phone: Blood hemoglobin measurement (mass/volume)on 07-14-2022 Hemoglobin (Bld) [Mass/Vol] 12.0 g/dL 12.0-15.0 [facility] Work Phone: Blood lymphocytes/100 leukoc yteson 07-14-2022 Lymphocytes/100 WBC (Bld) 34.4 % 19-41 [facility] Work Phone: Blood monocytes/100 leukocyt eson 07-14-2022 Monocytes/100 WBC (Bld) 6.8 % 0-10 [facility] Work Phone: Blood platelet mean volumeon 07-14-2022 Platelet mean volume (Bld) [Entitic vol] 10.2 fL 6.2-12.0 [facility] Work Phone: Determination of erythrocyte mean corpuscular volume (MCV)on 07-14-2022 MCV (RBC) [Entitic vol] 90.8 fL 81-99 [facility] Work Phone: [phone] Hematocrit Auto (Bld) [Volum e fraction]on 07-14-2022 Hematocrit (Bld) [Volume fraction] 37.7 % 37-47 [facility] Work Phone: [phone] Ketones Test strip Ql (U)on 07-14-2022 Ketones Ql (U) Negative Negative [facility] Work Phone: [phone] Laboratory - Chemistry and C hemistry - challengeon 07-14-2022 ALP [Catalytic activity/Vol] 131 U/L 45-117 [facility] Work Phone: [phone] ALT [Catalytic activity/Vol] 33 U/L 13-56 [facility] Work Phone: [phone] CO2 [Moles/Vol] 31.0 mmol/L 21.0-32.0 [facility] Work Phone: [phone] Globulin (S) [Mass/Vol] 5.0 g/dL 2.2-4.2 [facility] Work Phone: [phone] Urea nitrogen/Creatinine [Mass ratio] 14.7 mg/mg 10-20 [facility] Work Phone: [phone] Laboratory - Hematology and Cell countson 07-14-2022 Erythrocyte distribution width (RBC) [Entitic vol] 49.9 fL 35.1-43.9 [facility] Work Phone: [phone] Erythrocyte distribution width (RBC) [Ratio] 15.1 % 11.6-14.6 [facility] Work Phone: [phone] Immature granulocytes/100 WBC (Bld) 0.400 % 0.0-0.9 [facility] Work Phone: [phone] Comment on above: IG% - Immature Granu locytes (promyelocytes, myelocytes and metamyelocytes) > 1% indicates that a LEFT SHIFT is Present. MCH (RBC) [Entitic mass] 28.9 pg 27.0-32.0 [facility] Work Phone: Nucleated RBC/100 WBC (Bld) [Ratio] 0 % 0-5 [facility] Work Phone: MCHC Auto (RBC) [Mass/Vol]on 07-14-2022 MCHC (RBC) [Mass/Vol] 31.8 g/dL 32-36 [facility] Work Phone: Mucus LM Ql (Urine sed)on Mucus Ql (Urine sed) 0 SEEN /hpf [facility] Work Phone: [phone] Nitrite Test strip Ql (U)on 07-14-2022 Nitrite Ql (U) Negative Negative [facility] Work Phone: No Panel Informationon 07-14 Estimated Creatinine Clearance Calc 40.37 ml/min [facility] Work Phone: Estimated GFR (MDRD) Amer 73 mL/min >60 [facility] Work Phone: Comment on above: GFR Calc Estimated GFR (MDRD) Non-Af Amer 60 mL/min >60 [facility] Work Phone: Comment on above: Non- GFR Calc Platelets bldon 07-14-2022 Platelets (Bld) [#/Vol] 267 10*3/uL 150-450 [facility] Work Phone: Protein Test strip Ql (U)on 07-14-2022 Protein Ql (U) 30 mg/dl Negative [facility] Work Phone: [phone] Serum or plasma albumin melanie urement (mass/volume)on 07-14-2022 Albumin [Mass/Vol] 3.3 g/dL 3.2-5.0 [facility] Work Phone: [phone] Serum or plasma albumin/glob ulin mass ratioon 07-14-2022 Albumin/Globulin [Mass ratio] 0.7 {ratio} 0.9-2.4 [facility] Work Phone: [phone] Serum or plasma calcium melanie urement (mass/volume)on 07-14-2022 Calcium [Mass/Vol] 11.4 mg/dL 8.5-10.1 [facility] Work Phone: [phone] Serum or plasma creatinine m easurement (mass/volume)on 07-14-2022 Creatinine [Mass/Vol] 0.95 mg/dL 0.55-1.02 [facility] Work Phone: Comment on above: The validity of the calculated GFR & GFRAA in patients over 70 years has not been determined. Clinical correlation is essential. Serum or plasma urea nitroge n measurement (mass/volume)on 07-14-2022 Urea nitrogen [Mass/Vol] 14 mg/dL 7-18 [facility] Work Phone: Squamous epithelial cells de tection in urine sediment by light microscopyon 07-14-2022 Epithelial cells.squamous LM Ql (Urine sed) 0-5 SEEN /hpf 5-10 [facility] Work Phone: Thin prep Papanicolaou smear with manual screeningon 07-14-2022 Thin prep Papanicolaou smear with manual screening 44 U/L 15-37 [facility] Work Phone: Comment on above: Moderate Hemolysis, Result may be falsely increased. Thin prep Papanicolaou smear with manual screening 3 5-15 [facility] Work Phone: Urine blood detectionon 07-01 RBC Ql (U) 25 /ul Negative [facility] Work Phone: RBC Ql (U) 0 SEEN /hpf 0-5 [facility] Work Phone: Urine clarityon 07-14-2022 Clarity (U) Sl. Cloudy Clear [facility] Work Phone: Urine color determinationon 07-14-2022 Color (U) Yellow Yellow [facility] Work Phone: Urine glucose detectionon Glucose Ql (U) 1000 mg/dl Normal [facility] Work Phone: Urine leukocyte esterase det ection by dipstickon 07-14-2022 Leukocyte esterase Test strip Ql (U) 500 /ul Negative [facility] Work Phone: [phone] Urine pHon 07-14-2022 pH (U) 6.0 [pH] 5.0 - 8.0 [facility] Work Phone: Urine sediment bacteria coun t by microscopy (number/high power field)on 07-14-2022 Bacteria LM.HPF (Urine sed) [#/Area] 3 /[HPF] None Seen [facility] Work Phone: Urine specific gravity measu rementon 07-14-2022 Specific gravity (U) [Rel density] 1.015 1.002-1.030 [facility] Work Phone: Urobilinogen Auto test strip Ql (U)on 07-14-2022 Urobilinogen Ql (U) Normal mg/dl Normal [facility] Work Phone: CBC W Auto Differential pane l (Bld)on 05-07-2022 Basophils (Bld) [#/Vol] 0.05 10*3/uL Normal <0.11 [facility] Comment on above: Order Comment: Speci men Type: BLOOD SPECIMEN Ordering Facility: [facility] Address: [address] [place] [address] Performed By: #### 5 7021-8 #### [facility] CLIA [id number] [address] [place] [address] [place] Basophils/100 WBC (Bld) 0.7 % Normal [facility] Comment on above: Order Comment: Speci men Type: BLOOD SPECIMEN Ordering Facility: [facility] Address: [address] [place] [address] Performed By: #### 5 7021-8 #### [facility] CLIA [id number] [address] [place] [address] [place] Differential cell count method Nom (Bld) Auto Normal [facility] Comment on above: Order Comment: Speci men Type: BLOOD SPECIMEN Ordering Facility: [facility] Address: [address] [address] Performed By: #### 5 7021-8 #### [facility] CLIA [id number] [address] [place] [address] [place] Eosinophils (Bld) [#/Vol] 0.32 10*3/uL Normal <0.46 [facility] Comment on above: Order Comment: Speci men Type: BLOOD SPECIMEN Ordering Facility: [facility] Address: [address] [place] [address] Performed By: #### 5 7021-8 #### [facility] CLIA [id number] [address] [place] [address] [place] Eosinophils/100 WBC (Bld) 4.7 % Normal [facility] Comment on above: Order Comment: Speci men Type: BLOOD SPECIMEN Ordering Facility: [facility] Address: [address] [place] [address] Performed By: #### 5 7021-8 #### [facility] CLIA [id number] [address] [place] [address] [place] Erythrocyte distribution width (RBC) [Ratio] 14.6 % Normal 11.5-15.0 [facility] Comment on above: Order Comment: Speci men Type: BLOOD SPECIMEN Ordering Facility: [facility] Address: [address] [place] [address] Performed By: #### 5 7021-8 #### [facility] CLIA [id number] [address] [place] [address] [place] Hematocrit (Bld) [Volume fraction] 37.2 % Normal 36.0-46.0 [facility] Comment on above: Order Comment: Speci men Type: BLOOD SPECIMEN Ordering Facility: [facility] Address: [address] [place], [place] [address] Performed By: #### 5 7021-8 #### [facility] CLIA [id number] [address] [place] [address] [place] Hemoglobin (Bld) [Mass/Vol] 12.0 g/dL Normal 11.5-15.5 [facility] Comment on above: Order Comment: Speci men Type: BLOOD SPECIMEN Ordering Facility: [facility] Address: [address] [place] [address] Performed By: #### 5 7021-8 #### [facility] CLIA [id number] [address] [place] [address] [place] IMMATURE GRAN % 0.1 % Normal [facility] Comment on above: Order Comment: Speci men Type: BLOOD SPECIMEN Ordering Facility: [facility] Address: [address] [place] [address] Performed By: #### 5 7021-8 #### [facility] CLIA [id number] [address] [place] [address] [place] IMMATURE GRAN ABS <0.03 Normal <0.10 [facility] Comment on above: Order Comment: Speci men Type: BLOOD SPECIMEN Ordering Facility: [facility] Address: [address] [place] [address] Performed By: #### 5 7021-8 #### [facility] CLIA [id number] [address] [place] [address] [place] Lymphocytes (Bld) [#/Vol] 2.03 10*3/uL Normal 1.00-4.0 0 [facility] Comment on above: Order Comment: Speci men Type: BLOOD SPECIMEN Ordering Facility: [facility] Address: [address] [place], [place] [address] Performed By: #### 5 7021-8 #### [facility] CLIA [id number] [address] [place] [address] [place] Lymphocytes/100 WBC (Bld) 29.7 % Normal [facility] Comment on above: Order Comment: Speci men Type: BLOOD SPECIMEN Ordering Facility: [facility] Address: [address] [place] [address] Performed By: #### 5 7021-8 #### [facility] CLIA [id number] [address] [place] [address] [place] MCH (RBC) [Entitic mass] 28.5 pg Normal 26.0-34.0 [facility] Comment on above: Order Comment: Speci men Type: BLOOD SPECIMEN Ordering Facility: [facility] Address: [address] [place] [address] Performed By: #### 5 7021-8 #### [facility] CLIA [id number] [address] [place] [address] [place] MCHC (RBC) [Mass/Vol] 32.3 g/dL Normal 30.5-36.0 [facility] Comment on above: Order Comment: Speci men Type: BLOOD SPECIMEN Ordering Facility: [facility] Address: [address] [place] [address] Performed By: #### 5 7021-8 #### [facility] CLIA [id number] [address] [place] [address] [place] MCV (RBC) [Entitic vol] 88.4 fL Normal 80.0-100.0 [facility] Comment on above: Order Comment: Speci men Type: BLOOD SPECIMEN Ordering Facility: [facility] Address: [address] [place] [address] Performed By: #### 5 7021-8 #### [facility] CLIA [id number] [address] [place] [address] [place] Monocytes (Bld) [#/Vol] 0.47 10*3/uL Normal <0.87 [facility] Comment on above: Order Comment: Speci men Type: BLOOD SPECIMEN Ordering Facility: [facility] Address: [address] [place] [address] Performed By: #### 5 7021-8 #### [facility] CLIA [id number] [address] [place] [address] [place] Monocytes/100 WBC (Bld) 6.9 % Normal [facility] Comment on above: Order Comment: Speci men Type: BLOOD SPECIMEN Ordering Facility: [facility] Address: [address] [place] [address] Performed By: #### 5 7021-8 #### [facility] CLIA [id number] [address] [place] [address] [place] Neutrophils (Bld) [#/Vol] 3.96 10*3/uL Normal 1.45-7.5 0 [facility] Comment on above: Order Comment: Speci men Type: BLOOD SPECIMEN Ordering Facility: [facility] Address: [address] [place] [address] Performed By: #### 5 7021-8 #### [facility] CLIA [id number] [address] [place] [address] [place] Neutrophils/100 WBC (Bld) 57.9 % Normal [facility] Comment on above: Order Comment: Speci men Type: BLOOD SPECIMEN Ordering Facility: [facility] Address: [address] [place], [place] [address] Performed By: #### 5 7021-8 #### [facility] CLIA [id number] [address] [place] [address] [place] Nucleated RBC (Bld) [#/Vol] 10*3/uL Normal <0.01 [facility] Comment on above: Order Comment: Speci men Type: BLOOD SPECIMEN Ordering Facility: [facility] Address: [address] [place], [place] [address] Performed By: #### 5 7021-8 #### [facility] CLIA [id number] [address] [place] [address] [place] Nucleated RBC/100 WBC (Bld) [Ratio] 0.0 /100 WBC Normal [facility] Comment on above: Order Comment: Speci men Type: BLOOD SPECIMEN Ordering Facility: [facility] Address: [address] [place], [place] [address] Performed By: #### 5 7021-8 #### [facility] CLIA [id number] [address] [place] [address] [place] Platelet mean volume (Bld) [Entitic vol] 10.0 fL Normal 9.0-12.7 [facility] Comment on above: Order Comment: Speci men Type: BLOOD SPECIMEN Ordering Facility: [facility] Address: [address] [place], [place] [address] Performed By: #### 5 7021-8 #### [facility] CLIA [id number] [address] [place] [address] [place] Platelets (Bld) [#/Vol] 246 10*3/uL Normal 150-400 [facility] Comment on above: Order Comment: Speci men Type: BLOOD SPECIMEN Ordering Facility: [facility] Address: [address] [place], [place] [address] Performed By: #### 5 7021-8 #### [facility] CLIA [id number] [address] [place] [address] [place] RBC (Bld) [#/Vol] 4.21 10*6/uL Normal 3.90-5.20 [facility] Comment on above: Order Comment: Speci men Type: BLOOD SPECIMEN Ordering Facility: [facility] Address: [address] [place], [place] [address] Performed By: #### 5 7021-8 #### [facility] CLIA [id number] [address] [place] [address] [place] WBC (Bld) [#/Vol] 6.84 10*3/uL Normal 3.70-11.00 [facility] Comment on above: Order Comment: Speci men Type: BLOOD SPECIMEN Ordering Facility: [facility] Address: [address] [place], [place] [address] Performed By: #### 5 7021-8 #### [id number] [address] [place] [address] [facility] CNOVSPon 05-07-2022 CNOVSP Visit (SP) Office (HEMAWS) ---- OLGA DONALDSON ([id number]) 1945 F Date Time Provider Department 05/07/22 1:30 PM LASHONDA IRAHETA During your visit today, we recorded the following information about you: Temperature Pulse Blood pressure Weight 97.2 degrees 66/minute 160/68 73.7 kg Height 1.581 m 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 APRN.VOLTMETER OPERATOR 05/07/2022 2:25 PM Signed Chief Complaint Patient [...] an every 2-week basis for 4 cycles ([id number]). Completed a year of trastuzumab 06/16/06. Referred back or anemia. Admitted to [facility] 12/02/2019 for chest pain with ambulation. [...] sucrose March 2021. No new concerns today. Appetite:Too good. Energy level:Good. Denies fevers or recent illness. Resp:denies cough [...] (97.2 ?F) (Temporal) Ht 158.1 cm (5' 2.25) Wt 73.7 kg (162 lb 8 oz) [...] 1.00 - 4.00 k/uL 2.70 2.30 2.03 Bacon% % 7.0 6.6 6.9 Abs Bacon <0.87 k/uL 0.49 0.47 0.47 Eosin% % 4.9 3.2 4.7 Abs Eosin <0.46 k/uL 0.34 0.23 0.32 Baso% % 0.7 0.6 0.7 Abs Baso <0.11 k/uL 0.05 0.04 0.05 Immature (more content not included)... Normal [facility] Ferritin SerPl-mCncon 2021 Ferritin [Mass/Vol] 808.0 ng/mL High 14.7-205.1 [facility] Comment on above: Order Comment: Speci men Type: BLOOD SPECIMEN Ordering Facility: [facility] Address: [address] [place] [address] Performed By: #### 5 0190-8, 6-4 #### [facility] CLIA [id number] [address] [place] [address] [facility] Iron and Iron binding capaci panel 05-07-2022 Iron [Mass/Vol] 38 ug/dL Low 41-186 [facility] Comment on above: Order Comment: Speci men Type: BLOOD SPECIMEN Ordering Facility: [facility] Address: [address] [place] [address] Performed By: #### 5 0190-8, 6-4 #### [facility] CLIA [id number] [address] [place] [address] OF [facility] Iron binding capacity [Mass/Vol] 240 ug/dL Normal 232-386 [facility] Comment on above: Order Comment: Speci men Type: BLOOD SPECIMEN Ordering Facility: [facility] Address: [address] [place] [address] Performed By: #### 5 0190-8, 6-4 #### [facility] CLIA [id number] [address] [place] [address] [place] OF [facility] Iron/TIBC [Molar ratio] 15.8 % Normal 15.0-57.0 [facility] Comment on above: Order Comment: Speci men Type: BLOOD SPECIMEN Ordering Facility: [facility] Address: [address] [place] [address] Performed By: #### 5 0190-8, 6-4 #### [facility] CLIA [id number] [address] [place] [address] [place] CNPNon 02-10-2022 CNPN Telephone (HEMAWS) ---- OLGA DONALDSON ([id number]) 1945 F Date Time Provider Department 02/10/22 [...] - Hives Date Reviewed: 05/07/2021 Reviewed by: 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 APRN.VOLTMETER OPERATOR - Fully Assessed Reason for Visit: Results [...] MIST) 0.65 % nasal spray Use 1 [place] in the nose as needed. - diltiazem [...] VARNER LPN on 02/10/22 Normal [facility] CBC W Auto Differential pane l (Bld)on 02-03-2022 Basophils (Bld) [#/Vol] 0.04 10*3/uL Normal <0.11 [facility] Comment on above: Order Comment: Speci men Type: BLOOD SPECIMEN Ordering Facility: [facility] Address: [address] [place] [address] Performed By: #### 5 7021-8 #### [facility] CLIA [id number] [address] [place] [address] [place] Basophils/100 WBC (Bld) 0.6 % Normal [facility] Comment on above: Order Comment: Speci men Type: BLOOD SPECIMEN Ordering Facility: [facility] Address: [address] [place] [address] Performed By: #### 5 7021-8 #### [facility] CLIA [id number] [address] [place] [address] [place] Differential cell count method Nom (Bld) Auto Normal [facility] Comment on above: Order Comment: Speci men Type: BLOOD SPECIMEN Ordering Facility: [facility] Address: [address] [place] [address] Performed By: #### 5 7021-8 #### [facility] CLIA [id number] [address] [place] [address] [place] Eosinophils (Bld) [#/Vol] 0.23 10*3/uL Normal <0.46 [facility] Comment on above: Order Comment: Speci men Type: BLOOD SPECIMEN Ordering Facility: [facility] Address: [address] [place] [address] Performed By: #### 5 7021-8 #### [facility] CLIA [id number] [address] [place] [address] [place] Eosinophils/100 WBC (Bld) 3.2 % Normal [facility] Comment on above: Order Comment: Speci men Type: BLOOD SPECIMEN Ordering Facility: [facility] Address: [address] [place] [address] Performed By: #### 5 7021-8 #### [facility] CLIA [id number] [address] [place] [address] Erythrocyte distribution width (RBC) [Ratio] 14.3 % Normal 11.5-15.0 [facility] Comment on above: Order Comment: Speci men Type: BLOOD SPECIMEN Ordering Facility: [facility] Address: [address] [place] [address] Performed By: #### 5 7021-8 #### [facility] CLIA [id number] [address] [place] [address] STATES OF [facility] Hematocrit (Bld) [Volume fraction] 39.7 % Normal 36.0-46.0 [facility] Comment on above: Order Comment: Speci men Type: BLOOD SPECIMEN Ordering Facility: [facility] Address: [address] [place] [address] Performed By: #### 5 7021-8 #### [id number] [address] [place] [address] [place] Hemoglobin (Bld) [Mass/Vol] 12.8 g/dL Normal 11.5-15.5 [facility] Comment on above: Order Comment: Speci men Type: BLOOD SPECIMEN Ordering Facility: [facility] Address: [address] [place], [place] [address] Performed By: #### 5 7021-8 #### [facility] CLIA [id number] [address] [place] [address] [place] IMMATURE GRAN % 0.3 % Normal [facility] Comment on above: Order Comment: Speci men Type: BLOOD SPECIMEN Ordering Facility: [facility] Address: [address] [place] [address] Performed By: #### 5 7021-8 #### [facility] CLIA [id number] [address] [place] [address] [place] IMMATURE GRAN ABS <0.03 Normal <0.10 [facility] Comment on above: Order Comment: Speci men Type: BLOOD SPECIMEN Ordering Facility: [facility] Address: [address] [place] [address] Performed By: #### 5 7021-8 #### [facility] CLIA [id number] [address] [place] [address] [place] Lymphocytes (Bld) [#/Vol] 2.30 10*3/uL Normal 1.00-4.0 0 [facility] Comment on above: Order Comment: Speci men Type: BLOOD SPECIMEN Ordering Facility: [facility] Address: [address] [place] [address] Performed By: #### 5 7021-8 #### [id number] [address] [place] [address] [place] Lymphocytes/100 WBC (Bld) 32.1 % Normal [facility] Comment on above: Order Comment: Speci men Type: BLOOD SPECIMEN Ordering Facility: [facility] Address: [address] [place] [address] Performed By: #### 5 7021-8 #### [id number] [address] [place] [address] [place] MCH (RBC) [Entitic mass] 28.8 pg Normal 26.0-34.0 [facility] Comment on above: Order Comment: Speci men Type: BLOOD SPECIMEN Ordering Facility: [facility] Address: [address] [place] [address] Performed By: #### 5 7021-8 #### [facility] CLIA [id number] [address] [place] [address] [place] MCHC (RBC) [Mass/Vol] 32.2 g/dL Normal 30.5-36.0 [facility] Comment on above: Order Comment: Speci men Type: BLOOD SPECIMEN Ordering Facility: [facility] Address: [address] [place], [place] [address] Performed By: #### 5 7021-8 #### [facility] CLIA [id number] [address] [place] [address] [place] MCV (RBC) [Entitic vol] 89.4 fL Normal 80.0-100.0 [facility] Comment on above: Order Comment: Speci men Type: BLOOD SPECIMEN Ordering Facility: [facility] Address: [address] [place], [place] [address] Performed By: #### 5 7021-8 #### [facility] CLIA [id number] [address] [place] [address] [place] Monocytes (Bld) [#/Vol] 0.47 10*3/uL Normal <0.87 [facility] Comment on above: Order Comment: Speci men Type: BLOOD SPECIMEN Ordering Facility: [facility] Address: [address] [place] [address] Performed By: #### 5 7021-8 #### [facility] CLIA [id number] [address] [place] [address] [place] Monocytes/100 WBC (Bld) 6.6 % Normal [facility] Comment on above: Order Comment: Speci men Type: BLOOD SPECIMEN Ordering Facility: [facility] Address: [address] [place], [place] [address] Performed By: #### 5 7021-8 #### [facility] CLIA [id number] [address] [place] [address] [place] Neutrophils (Bld) [#/Vol] 4.11 10*3/uL Normal 1.45-7.5 0 [facility] Comment on above: Order Comment: Speci men Type: BLOOD SPECIMEN Ordering Facility: [facility] Address: [address] [place], [place] [address] Performed By: #### 5 7021-8 #### [facility] CLIA [id number] [address] [place] [address] [place] Neutrophils/100 WBC (Bld) 57.2 % Normal [facility] Comment on above: Order Comment: Speci men Type: BLOOD SPECIMEN Ordering Facility: [facility] Address: [address] [place] [address] Performed By: #### 5 7021-8 #### [facility] CLIA [id number] [address] [place] [address] [place] Nucleated RBC (Bld) [#/Vol] 10*3/uL Normal <0.01 [facility] Comment on above: Order Comment: Speci men Type: BLOOD SPECIMEN Ordering Facility: [facility] Address: [address] [place], [place] [address] Performed By: #### 5 7021-8 #### [facility] CLIA [id number] [address] [place] [address] [place] Nucleated RBC/100 WBC (Bld) [Ratio] 0.0 /100 WBC Normal [facility] Comment on above: Order Comment: Speci men Type: BLOOD SPECIMEN Ordering Facility: [facility] Address: [address] [place], [place] [address] Performed By: #### 5 7021-8 #### [facility] CLIA [id number] [address] [place] [address] [place] Platelet mean volume (Bld) [Entitic vol] 10.3 fL Normal 9.0-12.7 [facility] Comment on above: Order Comment: Speci men Type: BLOOD SPECIMEN Ordering Facility: [facility] Address: [address] [place], [place] [address] Performed By: #### 5 7021-8 #### [facility] CLIA [id number] [address] [place] [address] [place] Platelets (Bld) [#/Vol] 265 10*3/uL Normal 150-400 [facility] Comment on above: Order Comment: Speci men Type: BLOOD SPECIMEN Ordering Facility: [facility] Address: [address] [place] [address] Performed By: #### 5 7021-8 #### [facility] CLIA [id number] [address] [place] [address] [place] RBC (Bld) [#/Vol] 4.44 10*6/uL Normal 3.90-5.20 [facility] Comment on above: Order Comment: Speci men Type: BLOOD SPECIMEN Ordering Facility: [facility] Address: [address] [place] [address] Performed By: #### 5 7021-8 #### [facility] CLIA [id number] [address] [place] [address] [place] WBC (Bld) [#/Vol] 7.17 10*3/uL Normal 3.70-11.00 [facility] Comment on above: Order Comment: Speci men Type: BLOOD SPECIMEN Ordering Facility: [facility] Address: [address] [place] [address] Performed By: #### 5 7021-8 #### [facility] CLIA [id number] [address] [place] [address] [place] FERRITIN BLDon 02-03-2022 Ferritin [Mass/Vol] 1132.0 ng/mL High 14.7-205.1 [facility] Comment on above: Order Comment: Speci men Type: BLOOD SPECIMEN Ordering Facility: [facility] Address: [address] [place] [address] Performed By: #### F ERR, IRON #### [facility] CLIA [id number] [address] [place] [address] [place] IRON + TIBCon 02-03-2022 Iron [Mass/Vol] 66 ug/dL Normal 41-186 [facility] Comment on above: Order Comment: Speci men Type: BLOOD SPECIMEN Ordering Facility: [facility] Address: [address] [place] [address] Performed By: #### F ERR, IRON #### [facility] CLIA [id number] [address] [place] [address] [place] Iron binding capacity [Mass/Vol] 286 ug/dL Normal 232-386 [facility] Comment on above: Order Comment: Speci men Type: BLOOD SPECIMEN Ordering Facility: [facility] Address: [address] [place] [address] Performed By: #### F ERR, IRON #### [facility] CLIA [id number] [address] [place] [address] OF [facility] Iron/TIBC [Molar ratio] 23 % Normal 15-57 C [facility] Comment on above: Order Comment: Speci men Type: BLOOD SPECIMEN Ordering Facility: [facility] Address: [address] [place] [address] Performed By: #### F ERR, IRON #### [facility] CLIA [id number] [address] [place] [address] [place] Bacteria identified Anaer cx Nom (Unsp spec)on 12-02-2021 Anaerobic microbial culture No anaerobic bacteria isolated. [facility] Work Phone: [phone] Bacteria identified Cx Nom ( Wound)on 12-02-2021 Wound Culture Negative [facility] Work Phone: [phone] Wound Culture Staphylococcus epidermidis [facility] Work Phone: [phone] Wound Culture Corynebacterium striatum [facility] Work Phone: [phone] Gram stain for investigation of transfusion reactionon 12-02-2021 Microscopic observation Gram stain Nom (Unsp spec) [facility] Work Phone: [phone] CBC W Auto Differential pane l (Bld)on 11-04-2021 Basophils (Bld) [#/Vol] 0.05 10*3/uL Normal <0.11 [facility] Comment on above: Order Comment: Speci men Type: BLOOD SPECIMEN Ordering Facility: [facility] Address: [address] [place] [address] Performed By: #### 5 7021-8 #### [facility] CLIA [id number] [address] [place] [address] [place] Basophils/100 WBC (Bld) 0.7 % Normal [facility] Comment on above: Order Comment: Speci men Type: BLOOD SPECIMEN Ordering Facility: [facility] Address: [address] [place] [address] Performed By: #### 5 7021-8 #### [facility] CLIA [id number] [address] [place] [address] [place] Differential cell count method Nom (Bld) Auto Normal [facility] Comment on above: Order Comment: Speci men Type: BLOOD SPECIMEN Ordering Facility: [facility] Address: [address] [place] [address] Performed By: #### 5 7021-8 #### [facility] CLIA [id number] [address] [place] [address] [place] Eosinophils (Bld) [#/Vol] 0.34 10*3/uL Normal <0.46 [facility] Comment on above: Order Comment: Speci men Type: BLOOD SPECIMEN Ordering Facility: [facility] Address: [address] [place] [address] Performed By: #### 5 7021-8 #### [facility] CLIA [id number] [address] [place] [address] [place] Eosinophils/100 WBC (Bld) 4.9 % Normal [facility] Comment on above: Order Comment: Speci men Type: BLOOD SPECIMEN Ordering Facility: [facility] Address: [address] [place] [address] Performed By: #### 5 7021-8 #### [facility] CLIA [id number] [address] [place] [address] Erythrocyte distribution width (RBC) [Ratio] 13.3 % Normal 11.5-15.0 [facility] Comment on above: Order Comment: Speci men Type: BLOOD SPECIMEN Ordering Facility: [facility] Address: [address] [place] [address] Performed By: #### 5 7021-8 #### [facility] CLIA [id number] [address] [place] [address] STATES OF [facility] Hematocrit (Bld) [Volume fraction] 40.4 % Normal 36.0-46.0 [facility] Comment on above: Order Comment: Speci men Type: BLOOD SPECIMEN Ordering Facility: [facility] Address: [address] [place] [address] Performed By: #### 5 7021-8 #### [id number] [address] [place] [address] [place] Hemoglobin (Bld) [Mass/Vol] 12.9 g/dL Normal 11.5-15.5 [facility] Comment on above: Order Comment: Speci men Type: BLOOD SPECIMEN Ordering Facility: [facility] Address: [address] [place], [place] [address] Performed By: #### 5 7021-8 #### [facility] CLIA [id number] [address] [place] [address] [place] IMMATURE GRAN % 0.1 % Normal [facility] Comment on above: Order Comment: Speci men Type: BLOOD SPECIMEN Ordering Facility: [facility] Address: [address] [place] [address] Performed By: #### 5 7021-8 #### [facility] CLIA [id number] [address] [place] [address] [place] IMMATURE GRAN ABS <0.03 Normal <0.10 [facility] Comment on above: Order Comment: Speci men Type: BLOOD SPECIMEN Ordering Facility: [facility] Address: [address] [place] [address] Performed By: #### 5 7021-8 #### [facility] CLIA [id number] [address] [place] [address] [place] Lymphocytes (Bld) [#/Vol] 2.70 10*3/uL Normal 1.00-4.0 0 [facility] Comment on above: Order Comment: Speci men Type: BLOOD SPECIMEN Ordering Facility: [facility] Address: [address] [place] [address] Performed By: #### 5 7021-8 #### [facility] CLIA [id number] [address] [place] [address] [place] Lymphocytes/100 WBC (Bld) 38.6 % Normal [facility] Comment on above: Order Comment: Speci men Type: BLOOD SPECIMEN Ordering Facility: [facility] Address: [address] [place] [address] Performed By: #### 5 7021-8 #### [facility] [id number] [address] [place] [address] [place] MCH (RBC) [Entitic mass] 28.9 pg Normal 26.0-34.0 [facility] Comment on above: Order Comment: Speci men Type: BLOOD SPECIMEN Ordering Facility: [facility] Address: [address] [place] [address] Performed By: #### 5 7021-8 #### [facility] CLIA [id number] [address] [place] [address] [place] MCHC (RBC) [Mass/Vol] 31.9 g/dL Normal 30.5-36.0 [facility] Comment on above: Order Comment: Speci men Type: BLOOD SPECIMEN Ordering Facility: [facility] Address: [address] [place], [place] [address] Performed By: #### 5 7021-8 #### [facility] CLIA [id number] [address] [place] [address] [place] MCV (RBC) [Entitic vol] 90.4 fL Normal 80.0-100.0 [facility] Comment on above: Order Comment: Speci men Type: BLOOD SPECIMEN Ordering Facility: [facility] Address: [address] [place] [address] Performed By: #### 5 7021-8 #### [facility] CLIA [id number] [address] [place] [address] [place] Monocytes (Bld) [#/Vol] 0.49 10*3/uL Normal <0.87 [facility] Comment on above: Order Comment: Speci men Type: BLOOD SPECIMEN Ordering Facility: [facility] Address: [address] [place] [address] Performed By: #### 5 7021-8 #### [facility] CLIA [id number] [address] [place] [address] [place] Monocytes/100 WBC (Bld) 7.0 % Normal [facility] Comment on above: Order Comment: Speci men Type: BLOOD SPECIMEN Ordering Facility: [facility] Address: [address] [place], [place] [address] Performed By: #### 5 7021-8 #### [facility] CLIA [id number] [address] [place] [address] [place] Neutrophils (Bld) [#/Vol] 3.40 10*3/uL Normal 1.45-7.5 0 [facility] Comment on above: Order Comment: Speci men Type: BLOOD SPECIMEN Ordering Facility: [facility] Address: [address] [place], [place] [address] Performed By: #### 5 7021-8 #### [facility] CLIA [id number] [address] [place] [address] [place] Neutrophils/100 WBC (Bld) 48.7 % Normal [facility] Comment on above: Order Comment: Speci men Type: BLOOD SPECIMEN Ordering Facility: [facility] Address: [address] [place], [place] [address] Performed By: #### 5 7021-8 #### [facility] CLIA [id number] [address] [place] [address] [place] Nucleated RBC (Bld) [#/Vol] 10*3/uL Normal <0.01 [facility] Comment on above: Order Comment: Speci men Type: BLOOD SPECIMEN Ordering Facility: [facility] Address: [address] [place], [place] [address] Performed By: #### 5 7021-8 #### [facility] CLIA [id number] [address] [place] [address] [place] Nucleated RBC/100 WBC (Bld) [Ratio] 0.0 /100 WBC Normal [facility] Comment on above: Order Comment: Speci men Type: BLOOD SPECIMEN Ordering Facility: [facility] Address: [address] [place], [place] [address] Performed By: #### 5 7021-8 #### [facility] CLIA [id number] [address] [place] [address] [place] Platelet mean volume (Bld) [Entitic vol] 10.1 fL Normal 9.0-12.7 [facility] Comment on above: Order Comment: Speci men Type: BLOOD SPECIMEN Ordering Facility: [facility] Address: [address] [place], [place] [address] Performed By: #### 5 7021-8 #### [facility] CLIA [id number] [address] [place] [address] [place] Platelets (Bld) [#/Vol] 246 10*3/uL Normal 150-400 [facility] Comment on above: Order Comment: Speci men Type: BLOOD SPECIMEN Ordering Facility: [facility] Address: [address] [place] [address] Performed By: #### 5 7021-8 #### [facility] CLIA [id number] [address] [place] [address] [place] RBC (Bld) [#/Vol] 4.47 10*6/uL Normal 3.90-5.20 [facility] Comment on above: Order Comment: Speci men Type: BLOOD SPECIMEN Ordering Facility: [facility] Address: [address] [place] [address] Performed By: #### 5 7021-8 #### [facility] CLIA [id number] [address] [place] [address] [place] WBC (Bld) [#/Vol] 6.99 10*3/uL Normal 3.70-11.00 [facility] Comment on above: Order Comment: Speci men Type: BLOOD SPECIMEN Ordering Facility: [facility] Address: [address] [place] [address] Performed By: #### 5 7021-8 #### [facility] CLIA [id number] [address] [place] [address] [place] FERRITIN BLDon 11-04-2021 Ferritin [Mass/Vol] 1428.0 ng/mL High 14.7-205.1 [facility] Comment on above: Order Comment: Speci men Type: BLOOD SPECIMEN Ordering Facility: [facility] Address: [address] [place] [address] Performed By: #### I EVELIA RUSH #### [facility] CLIA [id number] [address] [place] [address] [place] IRON + TIBCon 11-04-2021 Iron [Mass/Vol] 60 ug/dL Normal 41-186 [facility] Comment on above: Order Comment: Speci men Type: BLOOD SPECIMEN Ordering Facility: [facility] Address: [address] [place] [address] Performed By: #### I VICTOR MANUEL, FERR #### [facility] CLIA [id number] [address] [place] [address] Iron binding capacity [Mass/Vol] 242 ug/dL Normal 232-386 [facility] Comment on above: Order Comment: Speci men Type: BLOOD SPECIMEN Ordering Facility: [facility] Address: [address] [place] [address] Performed By: #### I VICTOR MANUEL, FERR #### [facility] CLIA [id number] [address] [place] [address] Iron/TIBC [Molar ratio] 25 % Normal 15-57 [facility] Comment on above: Order Comment: Speci men Type: BLOOD SPECIMEN Ordering Facility: [facility] Address: [address] [place] [address] Performed By: #### I VICTOR MANUEL, FERR #### [facility] CLIA [id number] [address] [place] [address] OF [place] Justine 09-29-2021 JOCELYNE Telephone (EVELYN) ---- OLGA DONALDSON ([id number]) 1945 F Date Time Provider Department 09/29/21 JOSEPH ROLLE During your visit today, we recorded the following information about you: Joseph Rolle, 09/29/2021 8:54 AM Signed Can let her [...] - Hives Date Reviewed: 05/07/2021 Reviewed by: 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 APRN.VOLTMETER OPERATOR - Fully Assessed Reason for Visit: Results [95] Follow Up [171] Primary Visit Diagnosis:Anemia, unspecified type [D64.9] Order(s):CBC + DIFF [SQCBCDIF] Order #: [id number] FUTURE COMP METABOLIC PANEL [SQCMP] Order #: [id number] FUTURE PROTEIN ELECTROPHORESIS SERUM W/INTERP [SQSEPG] Order #: [id number] FUTURE MONOCLONAL PROTEIN, SERUM (BLOOD) [SQSERMPA] Order #: [id number] FUTURE Prescriptions as of 04/12/2022 - ascorbic [...] MIST) 0.65 % nasal spray Use 1 [place] in the nose as needed. - diltiazem [...] Specified Conge (more content not included)... Normal [facility] 05-09-2021 JOCELYNE Telephone (EVELYN) ---- OLGA DONALDSON ([id number]) 1945 F Date Time Provider Department 05/09/21 LASHONDA IRAHETA During your visit today, we recorded the following information about you: 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 APRN.CNP 05/09/2021 9:20 AM Signed Please inform pt. that her labs look good. Follow up as scheduled. Thank you. 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 APRN.VOLTMETER OPERATOR Jocelyn Abernathy 05/09/2021 9:22 AM Signed Pt aware of results. Jocelyn Abernathy Allergies As of Date: 05/09/2021 Noted Allergy Reaction KEFLEX (CEPHALEXIN) 07/02/2005 2 - Rash tape [Other] 07/30/2005 2 - Rash Comments: Nylon tape caused rash. Use paper tape. Also no dark brown bandaids. Spot bandaid ok. PLAVIX (CLOPIDOGREL BISULFATE) 08/04/2011 4 - Hives Date Reviewed: 05/07/2021 Reviewed by: 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 APRN.VOLTMETER OPERATOR - Fully Assessed Reason for Visit: Results [...] MIST) 0.65 % nasal spray Use 1 [place] in the nose as needed. - diltiazem [...] VARNER LPN on 05/09/21 Normal [facility] - Specimen inform ationon 03-27-2021 Specimen source Nom (Unsp spec) Stool [facility] No Panel Informationon 03-27 Occult Blood Diagnostic Positive Ab[facility] FERRITIN BLDon 03-22-2021 Ferritin [Mass/Vol] 1064.0 ng/mL High 14.7 - 2 05.1 ng/mL [facility] CULTURE FUNGUSon 02-08-2018 CULTURE FUNGUS 1 Organism Nithya albicans Many Normal [facility] Comment on above: Performed By: #### C /FUN, S/FUN ####[address] [address] STAIN FUNGUSon 01-19-2018 STAIN FUNGUS STAIN FUNGUS --> Status: F 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 Direct exam by Calcofluor stain. Direct exam by Calcofluor stain. Normal [facility] Comment on above: Performed By: #### C /FUN, S/FUN ####[facility] [id number] [place] [address] Office Visit: Dede mina 01-13-2017 Adolescent depression screening assessment Adolescent depression screening assessment Invalid Interpretation Code [facility] Work Phone: [phone] Adult depression screening assessment Adolescent depression screening assessment [facility] Work Phone: [phone] Documentation of current medications (procedure) Done Invalid Interpretation Code [facility] Work Phone: [phone] Fall risk assessment Fall risk assessment [facility] Work Phone: [phone] Tobacco smoking status NHIS Never [facility] Work Phone: [phone] Tobacco smoking status NHIS Former smoker [facility] Work Phone: [phone] Tobacco use HS Former smoker Invalid Interpretation Code [facility] Work Phone: [phone] Clinical Lists 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: 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 Left ventricular Ejection fraction 70 % [facility] Work Phone: [phone] Office Visiton 08-29-2015 cardiac risk group [facility] Work Phone: [phone] General cardiovascular disease 10Y risk [#] Thomas.D'Agostted Not enough information [facility] Work Phone: [phone] Replaced Document: Midmark E CG Observationson 08-29-2015 EKG QRS axis 29 deg [facility] Work Phone: [phone] electrocardiogram interpretation Sinus Tachycardia -With rate variation cv = 10.WITHIN NORMAL LIMITS Invalid Interpretation Code [facility] Work Phone: [phone] GE use only - for [employer] import when terms are not otherwise specified 411 ms Invalid Interpretation Code [facility] Work Phone: [phone] Interpretation Sinus Tachycardia -With rate variation cv = 10.WITHIN NORMAL LIMITS [facility] Work Phone: [phone] P [place] 41 deg [facility] Work Phone: [phone] P wave axis, electrocardiogram 41 deg Invalid Interpretation Code [facility] Work Phone: [phone] [place] Interval 134 ms [facility] Work Phone: [phone] [place] interval, electrocardiogram 134 ms Invalid Interpretation Code [facility] Work Phone: [phone] Pulse (Heart Rate) 109 /min Invalid Interpretation Code [facility] Work Phone: [phone] QRS axis, electrocardiogram 29 deg Invalid Interpretation Code [facility] Work Phone: [phone] QRS Duration 80 ms [facility] Work Phone: [phone] QRS duration, electrocardiogram 80 ms Invalid Interpretation Code [facility] Work Phone: [phone] QT Interval new path ms [facility] Work Phone: [phone] QT interval, electrocardiogram new path ms Invalid Interpretation Code [facility] Work Phone: [phone] QTc Carney 411 ms [facility] Work Phone: [phone] T [place] 37 deg [facility] Work Phone: [phone] T wave axis, electrocardiogram 37 deg Invalid Interpretation Code [facility] Work Phone: [phone] Bacteria identified Anaer cx Nom (Unsp spec) Anaerobic microbial culture No anaerobic bacteria isolated. [facility] Work Phone: [phone] Bacteria identified Cx Nom ( Wound) Wound Culture Negative [facility] Work Phone: [phone] Wound Culture Staphylococcus epidermidis [facility] Work Phone: [phone] Wound Culture Corynebacterium striatum [facility] Work Phone: [phone] Culture, urine Bacteria identified Cx Nom (U) Klebsiella pneumoniae sp pneum [facility] Work Phone: Gram stain for investigation of transfusion reaction Microscopic observation Gram stain Nom (Unsp spec) [facility] Work Phone: [phone] Vital Signs Date Time Vital Sign Value Performing Clinician Facility 01-26-2025 05:13-0400 Body temperature 98.3 [degF] Dr. Ramone Smiley MD Work Phone: [facility] 01-26-2025 05:13-0400 Diastolic blood pressure 72 mm[Hg] Dr. Ramone Smiley MD Work Phone: 9(871)787-216658 [place] [address] 01-26-2025 05:13-0400 Heart rate 83 /min Dr. Ramone Smiley MD Work Phone: 0(251)554-070558 [place] [address] 01-26-2025 05:13-0400 Respiratory rate 18 /min Dr. Ramone Smiley MD Work Phone: 4(072)327-178258 [place] [address] 01-26-2025 05:13-0400 SaO2% (BldA) [Mass fraction] 97 % Dr. Ramone Smiley MD Work Phone: 7(236)864-175258 [place] [address] 01-26-2025 05:13-0400 Systolic blood pressure 116 mm[Hg] Dr. Ramone Smiley MD Work Phone: 8(349)589-419058 [place] [address] 01-26-2025 03:02-0400 Body height 160.[address] Ramone Smiley MD Work Phone: 0(464)228-523558 [place] [address] 01-26-2025 03:02-0400 Body mass index (BMI) [Ratio] 31.4 kg/m2 Dr. Ramone Smiley MD Work Phone: 8(973)595-313758 [place] [address] 01-26-2025 03:02-0400 Body weight 80.[address] Ramone Smiley MD Work Phone: 8(215)305-488658 [place] [address] 01-24-2025 13:57-0400 Body temperature 97.4 [degF] Dr. Ramone Smiley MD Work Phone: 6(839)443-921858 [place] [address] 01-24-2025 13:57-0400 Diastolic blood pressure 68 mm[Hg] Dr. Ramone Smiley MD Work Phone: 2(823)269-632658 [place] [address] 01-24-2025 13:57-0400 Heart rate 87 /min Dr. Ramone Smiley MD Work Phone: 8(646)680-206658 [place] [address] 01-24-2025 13:57-0400 Respiratory rate 16 /min Dr. Ramone Smiley MD Work Phone: 7(509)945-869858 [place] [address] 01-24-2025 13:57-0400 SaO2% (BldA) [Mass fraction] 97 % Dr. Ramone Smiley MD Work Phone: 1(355)040-391658 [place] [address] 01-24-2025 13:57-0400 Systolic blood pressure 111 mm[Hg] Dr. Ramone Smiley MD Work Phone: [facility] 01-24-2025 05:23-0400 Body mass index (BMI) [Ratio] 30.7 kg/m2 Dr. Ramone Smiley MD Work Phone: [facility] 01-24-2025 05:23-0400 Body weight 78.[address] Ramone Smiley MD Work Phone: 4(844)119-138399 [place] [address] 01-22-2025 14:00-0400 Inhaled oxygen concentration 24 % Dr. Ramone Smiley MD Work Phone: 6(949)417-339358 [place] [address] 01-22-2025 11:00-0400 Inhaled oxygen flow rate 2 L/min Dr. Ramone Smiley MD Work Phone: 9(510)272-661258 [place] [address] 01-20-2025 10:06-0400 Body height 160.[address] Ramone Smiley MD Work Phone: 8(977)453-985899 [place] [address] 01-15-2025 18:58-0400 Body temperature 97.9 [degF] Dr. Ramone Smiley MD Work Phone: 6(246)828-743199 [place] [address] 01-15-2025 18:58-0400 Diastolic blood pressure 70 mm[Hg] Dr. Ramone Smiley MD Work Phone: 7(134)418-786299 [place] [address] 01-15-2025 18:58-0400 Heart rate 69 /min Dr. Ramone Smiley MD Work Phone: [facility] 01-15-2025 18:58-0400 Respiratory rate 22 /min Dr. Ramone Smiley MD Work Phone: [facility] 01-15-2025 18:58-0400 SaO2% (BldA) [Mass fraction] 98 % Dr. Ramone Smiley MD Work Phone: [facility] 01-15-2025 18:58-0400 Systolic blood pressure 130 mm[Hg] Dr. Ramone Smiley MD Work Phone: [facility] 01-15-2025 14:14-0400 Body height 160.[address] Ramone Smiley MD Work Phone: 7(325)453-512912 [address] 01-15-2025 14:14-0400 Body mass index (BMI) [Ratio] 32.3 kg/m2 Dr. Ramone Smiley MD Work Phone: 8(000)244-254658 [place] [address] 01-15-2025 14:14-0400 Body weight 82.[address] Ramone Smiley MD Work Phone: 9(333)069-031758 [place] [address] 01-07-2025 17:34-0400 Body temperature 97.6 [degF] Dr. Ramone Smiley MD Work Phone: 9(634)011-474758 [place] [address] 01-07-2025 17:34-0400 Diastolic blood pressure 78 mm[Hg] Dr. Ramone Smiley MD Work Phone: 8(112)223-523858 [place] [address] 01-07-2025 17:34-0400 Heart rate 82 /min Dr. Ramone Smiley MD Work Phone: 3(483)728-470358 [place] [address] 01-07-2025 17:34-0400 Respiratory rate 19 /min Dr. Ramone Smiley MD Work Phone: 8(929)873-120558 [place] [address] 01-07-2025 17:34-0400 SaO2% (BldA) [Mass fraction] 97 % Dr. Ramone Smiley MD Work Phone: 3(269)517-542158 [place] [address] 01-07-2025 17:34-0400 Systolic blood pressure 147 mm[Hg] Dr. Ramone Smiley MD Work Phone: 0(517)602-688658 [place] [address] 01-07-2025 14:56-0400 Body height 160.[address] Ramone Smiley MD Work Phone: 0(358)565-787758 [place] [address] 01-07-2025 14:56-0400 Body mass index (BMI) [Ratio] 31.5 kg/m2 Dr. Ramone Smiley MD Work Phone: 2(363)317-988758 [place] [address] 01-07-2025 14:56-0400 Body weight 80.[address] Ramone Smiley MD Work Phone: 2(107)600-934958 [place] [address] 12-30-2023 14:14-0400 Body temperature 98.9 [degF] Dr. Ramone Smiley Work Phone: [facility] 12-30-2023 14:14-0400 Diastolic blood pressure 60 mm[Hg] Dr. Ramone Smiley Work Phone: [facility] 12-30-2023 14:14-0400 Heart rate 80 /min Dr. Ramone Smiley Work Phone: [facility] 12-30-2023 14:14-0400 Respiratory rate 18 /min Dr. Ramone Smiley Work Phone: [facility] 12-30-2023 14:14-0400 SaO2% (BldA) [Mass fraction] 95 % Dr. Ramone Smiley Work Phone: [facility] 12-30-2023 14:14-0400 Systolic blood pressure 131 mm[Hg] Dr. Ramone Smiley Work Phone: 1(484)119-383299 [place] [address] 12-29-2023 07:09-0400 Inhaled oxygen flow rate 2 L/min Dr. Ramone Smiley Work Phone: 8(752)333-741199 [place] [address] 12-28-2023 11:27-0400 Body height 160.[address] Ramone Smiley Work Phone: 9(128)847-478999 [place] [address] 12-28-2023 11:27-0400 Body mass index (BMI) [Ratio] 27.8 kg/m2 Dr. Ramone Smiley Work Phone: 0(942)567-867099 [place] [address] 12-28-2023 11:27-0400 Body weight 71.[address] Ramone Smiley Work Phone: [facility] 12-27-2023 23:42-0400 Body temperature 97.5 [degF] [facility] 12-27-2023 23:42-0400 Diastolic blood pressure 59 mm[Hg] [facility] 12-27-2023 23:42-0400 Heart rate 77 /min [facility] 12-27-2023 23:42-0400 Respiratory rate 20 /min [facility] 12-27-2023 23:42-0400 SaO2% (BldA) [Mass fraction] 97 % [facility] 12-27-2023 23:42-0400 Systolic blood pressure 159 mm[Hg] [facility] 12-27-2023 22:06-0400 Body height 160.[address] [facility] 12-27-2023 22:06-0400 Body mass index (BMI) [Ratio] 29.5 kg/m2 [facility] 12-27-2023 22:06-0400 Body weight 75.[address] [facility] 08-17-2023 13:26-0500 Body temperature 97.1 [degF] Dr. Ramone Smiley Work Phone: [facility] 08-17-2023 13:26-0500 Diastolic blood pressure 65 mm[Hg] Dr. Ramone Smiley Work Phone: [facility] 08-17-2023 13:26-0500 Heart rate 84 /min Dr. Ramone Smiley Work Phone: [facility] 08-17-2023 13:26-0500 Respiratory rate 18 /min Dr. Ramone Smiley Work Phone: [facility] 08-17-2023 13:26-0500 SaO2% (BldA) [Mass fraction] 98 % Dr. Ramone Smiley Work Phone: [facility] 08-17-2023 13:26-0500 Systolic blood pressure 140 mm[Hg] Dr. Ramone Smiley Work Phone: [facility] 08-14-2023 13:28-0500 Body height 160.[address] Ramone Smiley Work Phone: [facility] 08-14-2023 13:28-0500 Body weight 60.[address] Ramone Smiley Work Phone: [facility] 08-13-2023 15:22-0500 Body mass index (BMI) [Ratio] 23.4 kg/m2 Dr. Ramone Smiley Work Phone: [facility] 08-13-2023 14:18-0500 Body temperature 98.6 [degF] Dr. Ramone Smiley Work Phone: [facility] 08-13-2023 14:18-0500 Diastolic blood pressure 59 mm[Hg] Dr. Ramone Smiley Work Phone: [facility] 08-13-2023 14:18-0500 Heart rate 107 /min Dr. Ramone Smiley Work Phone: [facility] 08-13-2023 14:18-0500 Respiratory rate 20 /min Dr. Ramone Smiley Work Phone: [facility] 08-13-2023 14:18-0500 SaO2% (BldA) [Mass fraction] 97 % Dr. Ramone Smiley Work Phone: [facility] 08-13-2023 14:18-0500 Systolic blood pressure 152 mm[Hg] Dr. Ramone Smiley Work Phone: [facility] 08-13-2023 10:03-0500 Body height 160.[address] Ramone Smiley Work Phone: [facility] 08-13-2023 10:03-0500 Body mass index (BMI) [Ratio] 24.5 kg/m2 Dr. Ramone Smiley Work Phone: [facility] 08-13-2023 10:03-0500 Body weight [address] Ramone Smiley Work Phone: [facility] 08-07-2023 20:23-0500 Body temperature 97.6 [degF] Dr. Ramone Smiley Work Phone: [facility] 08-07-2023 20:23-0500 Diastolic blood pressure 51 mm[Hg] Dr. Ramone Smiley Work Phone: [facility] 08-07-2023 20:23-0500 Heart rate 87 /min Dr. Ramone Smiley Work Phone: [facility] 08-07-2023 20:23-0500 Respiratory rate 18 /min Dr. Ramone Smiley Work Phone: [facility] 08-07-2023 20:23-0500 SaO2% (BldA) [Mass fraction] 98 % Dr. Ramone Smiley Work Phone: [facility] 08-07-2023 20:23-0500 Systolic blood pressure 115 mm[Hg] Dr. Ramone Smiley Work Phone: [facility] 07-19-2023 01:01-0500 Diastolic blood pressure 61 mm[Hg] Dr. Ramone Smiley Work Phone: [facility] 07-19-2023 01:01-0500 Heart rate 101 /min Dr. Ramone Smiley Work Phone: [facility] 07-19-2023 01:01-0500 Respiratory rate 20 /min Dr. Ramone Smiley Work Phone: [facility] 07-19-2023 01:01-0500 Systolic blood pressure 145 mm[Hg] Dr. Ramone Smiley Work Phone: [facility] 07-18-2023 23:28-0500 Body mass index (BMI) [Ratio] 25.7 kg/m2 Dr. Ramone Smiley Work Phone: [facility] 07-18-2023 23:28-0500 Body weight 65.[address] Ramone Smiley Work Phone: [facility] 07-18-2023 22:47-0500 Body temperature 97.6 [degF] Dr. Ramone Smiley Work Phone: [facility] 07-18-2023 22:47-0500 SaO2% (BldA) [Mass fraction] 96 % Dr. Ramone Smiley Work Phone: [facility] 07-18-2023 22:44-0500 Body height 160.[address] Ramone Smiley Work Phone: [facility] 07-15-2023 13:24-0500 Body temperature 98.2 [degF] Dr. Ramone Smiley Work Phone: [facility] 07-15-2023 13:24-0500 Diastolic blood pressure 74 mm[Hg] Dr. Ramone Smiley Work Phone: [facility] 07-15-2023 13:24-0500 Heart rate 89 /min Dr. Ramone Smiley Work Phone: [facility] 07-15-2023 13:24-0500 SaO2% (BldA) [Mass fraction] 92 % Dr. Ramone Smiley Work Phone: [facility] 07-15-2023 13:24-0500 Systolic blood pressure 122 mm[Hg] Dr. Ramone Smiley Work Phone: [facility] 01-28-2023 16:36-0400 Diastolic blood pressure 63 mm[Hg] [facility] 01-28-2023 16:36-0400 Heart rate 75 /min [facility] 01-28-2023 16:36-0400 Systolic blood pressure 170 mm[Hg] [facility] 01-28-2023 14:54-0400 Body height 160.[address] [facility] 01-28-2023 14:54-0400 Body mass index (BMI) [Ratio] 26.9 kg/m2 [facility] 01-28-2023 14:54-0400 Body temperature 97.8 [degF] [facility] 01-28-2023 14:54-[address] [facility] 01-28-2023 14:54-0400 Respiratory rate 25 /min [facility] 01-28-2023 14:54-0400 SaO2% (BldA) [Mass fraction] 97 % [facility] 07-14-2022 18:11-0500 Diastolic blood pressure 64 mm[Hg] [facility] Work Phone: 07-14-2022 18:11-0500 Heart rate 73 /min [facility] Work Phone: 07-14-2022 18:11-0500 Respiratory rate 18 /min [facility] Work Phone: 07-14-2022 18:11-0500 SaO2% (BldA) [Mass fraction] 98 % [facility] Work Phone: 07-14-2022 18:11-0500 Systolic blood pressure 174 mm[Hg] [facility] Work Phone: 07-14-2022 11:59-0500 Body height 160.[address] [facility] Work Phone: 07-14-2022 11:59-0500 Body mass index (BMI) [Ratio] 31.1 kg/m2 [facility] Work Phone: 07-14-2022 11:59-0500 Body temperature 97.2 [degF] [facility] Work Phone: 07-14-2022 11:59-0500 Body weight 79.[address] [facility] Work Phone: 05-07-2022 13:26-0400 Body height 158.1 cm Lashonda Javedenter ADVERTISING REP.VOLTMETER OPERATOR Work Phone: [facility] 05-07-2022 13:26-0400 Body temperature 97.2 [degF] 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 ADVERTISING REP.VOLTMETER OPERATOR Work Phone: [facility] 05-07-2022 13:26-0400 Body weight 73.71 kg Dickinson Iraheta ADVERTISING REP.VOLTMETER OPERATOR Work Phone: [facility] 05-07-2022 13:26-0400 Diastolic blood pressure 68 mm[Hg] Dickinson Iraheta ADVERTISING REP.VOLTMETER OPERATOR Work Phone: [facility] 05-07-2022 13:26-0400 Heart rate 66 /min Dickinson Iraheta ADVERTISING REP.VOLTMETER OPERATOR Work Phone: [facility] 05-07-2022 13:26-0400 Systolic blood pressure 160 mm[Hg] 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 ADVERTISING REP.VOLTMETER OPERATOR Work Phone: [facility] 02-26-2022 09:43-0400 Body height 160.[address] Ramone Smiley Work Phone: [facility] Work Phone: 02-26-2022 09:43-0400 Body mass index (BMI) [Ratio] 28.1 kg/m2 Dr. Ramone Smiley Work Phone: [facility] Work Phone: 02-26-2022 09:43-0400 Body temperature 97.9 [degF] Dr. Ramone Smiley Work Phone: [facility] Work Phone: 02-26-2022 09:43-0400 Body weight 72.[address] Ramone Smiley Work Phone: [facility] Work Phone: 02-26-2022 09:43-0400 Diastolic blood pressure 80 mm[Hg] Dr. Ramone Smiley Work Phone: [facility] Work Phone: 02-26-2022 09:43-0400 Heart rate 70 /min Dr. Ramone Smiley Work Phone: [facility] Work Phone: 02-26-2022 09:43-0400 Respiratory rate 14 /min Dr. Ramone Smiley Work Phone: [facility] Work Phone: 02-26-2022 09:43-0400 SaO2% (BldA) [Mass fraction] 98 % Dr. Ramone Smiley Work Phone: [facility] Work Phone: 02-26-2022 09:43-0400 Systolic blood pressure 134 mm[Hg] Dr. Ramone Smiley Work Phone: [facility] Work Phone: 12-17-2021 13:23-0400 Diastolic blood pressure 60 mm[Hg] Dr. Ramone Smiley Work Phone: [facility] Work Phone: 12-17-2021 13:23-0400 Systolic blood pressure 154 mm[Hg] Dr. Ramone Smiley Work Phone: [facility] Work Phone: 12-10-2021 10:34-0400 Diastolic blood pressure 70 mm[Hg] Dr. Ramone Smiley Work Phone: [facility] Work Phone: 12-10-2021 10:34-0400 Systolic blood pressure 124 mm[Hg] Dr. Ramone Smiley Work Phone: [facility] Work Phone: 12-06-2021 15:22-0400 Body mass index (BMI) [Ratio] 30.2 kg/m2 Dr. Ramone Smiley Work Phone: [facility] Work Phone: 12-06-2021 15:22-0400 Body weight 77.[address] Ramone Smiley Work Phone: [facility] Work Phone: 12-06-2021 15:22-0400 Diastolic blood pressure 84 mm[Hg] Dr. Ramone Smiley Work Phone: [facility] Work Phone: 12-06-2021 15:22-0400 Systolic blood pressure 122 mm[Hg] Dr. Ramone Smiley Work Phone: [facility] Work Phone: 12-06-2021 15:22-0400 Body height 160.[address] Ramone Smiley Work Phone: [facility] Work Phone: 12-06-2021 15:22-0400 Body mass index (BMI) [Ratio] 30.2 kg/m2 Dr. Ramone Smiley Work Phone: [facility] Work Phone: 12-06-2021 15:22-0400 Body weight 77.[address] Ramone Smiley Work Phone: [facility] Work Phone: 12-06-2021 15:22-0400 Diastolic blood pressure 84 mm[Hg] Dr. Ramone Smiley Work Phone: [facility] Work Phone: 12-06-2021 15:22-0400 Systolic blood pressure 122 mm[Hg] Dr. Ramone Smiley Work Phone: [facility] Work Phone: 12-04-2021 11:22-0400 Diastolic blood pressure 70 mm[Hg] Dr. Ramone Smiley Work Phone: [facility] Work Phone: 12-04-2021 11:22-0400 Systolic blood pressure 124 mm[Hg] Dr. Ramone Smiley Work Phone: [facility] Work Phone: 12-04-2021 11:22-0400 Diastolic blood pressure 70 mm[Hg] Dr. Ramone Smiley Work Phone: [facility] Work Phone: 12-04-2021 11:22-0400 Systolic blood pressure 124 mm[Hg] Dr. Ramone Smiley Work Phone: [facility] Work Phone: 12-02-2021 14:03-0400 Diastolic blood pressure 60 mm[Hg] Dr. Ramone Smiley Work Phone: [facility] Work Phone: 12-02-2021 14:03-0400 Systolic blood pressure 138 mm[Hg] Dr. Ramone Smiley Work Phone: [facility] Work Phone: 12-02-2021 14:03-0400 Diastolic blood pressure 60 mm[Hg] Dr. Ramone Smiley Work Phone: [facility] Work Phone: 12-02-2021 14:03-0400 Systolic blood pressure 138 mm[Hg] Dr. Ramone Smiley Work Phone: [facility] Work Phone: 01-13-2017 14:21-0400 BMI (Body Mass Index) 30.93 kg/m2 [facility] Work Phone: 01-13-2017 14:21-0400 Body Temperature 98.2 [degF] [facility] Work Phone: 01-13-2017 14:21-0400 Body weight 79.2 kg [facility] Work Phone: 01-13-2017 14:21-0400 BP Diastolic 76 mm[Hg] Zuleika Heaton [facility] Work Phone: 01-13-2017 14:21-0400 BP Systolic 128 mm[Hg] [facility] Work Phone: 01-13-2017 14:210400 Height 160.02 cm [facility] Work Phone: 01-13-2017 14:21-0400 Pulse (Heart Rate) 70 /min Zuleika Heaton [facility] Work Phone: 01-13-2017 14:21-0400 Pulse Oximetry 96 % [facility] Work Phone: 01-13-2017 14:21-0400 Respiratory Rate 16 /min [facility] Work Phone: 01-13-2017 14:21-0400 Weight 79.2 kg [facility] Work Phone: 10-09-2015 11:00-0500 BSA (Body Surface Area) 1.91 m2 [facility] Work Phone: 08-29-2015 11:19-0500 Heart rate 109 /min Zuleika Heaton [facility] Work Phone: Encounters Encounter Date Encounter Type Care Provider Facility Start: 01-31-2025 End: 01-31-2025 ambulatory Ramone [place] Facility:[facility] Start: 01-26-2025 End: 01-26-2025 Dr. Ramone Smiley MD Work Phone: -Emergency Department Work Phone: Start: 01-26-2025 End: 01-26-2025 Emergency department patient visit Dr. Ramone Smiley MD Work Phone: [facility] Work Phone: Start: 01-24-2025 Dr. Melba Hartmann MD - [facility] Work Phone: Start: 01-23-2025 Dr. Becca Silverman MD [facility] Start: 01-23-2025 Dr. Melba Hartmann MD - [facility] Work Phone: Start: 01-22-2025 Dr. Melba Hartmann MD - [facility] Work Phone: Start: 01-21-2025 Dr. Melba Hartmann MD - [facility] Work Phone: Start: 01-20-2025 ambulatory Marcelina Soto Fa cility:[facility] Start: 01-20-2025 Dr. Marcelina Soto MD -[facility] Start: 01-20-2025 ambulatory Sandeep Babb ty:[facility] Start: 01-20-2025 End: 01-24-2025 Evaluation and management of inpatient Dr. Ramone Smiley MD Work Phone: [facility] Work Phone: Start: 01-20-2025 End: 01-24-2025 Dr. Melba Hartmann MD -Progressive Care Unit Work Phone: Start: 01-19-2025 End: 01-19-[address] Ramone Smiley MD Work Phone: [facility] Work Phone: Start: 01-19-2025 End: 01-19-2025 Dr. Ramone Smiley MD -[facility] Start: 01-19-2025 End: 01-19-2025 ambulatory Ramone Smiley Facility:[facility] Start: 01-15-2025 End: 01-15-2025 Dr. Jeevan Yoder DO -Emergency Departmen t Work Phone: Start: 01-15-2025 End: 01-15-2025 Emergency department patient visit Dr. Ramone Smiley MD Work Phone: -Emergency Department Work Phone: Start: 01-07-2025 End: 01-07-2025 Dr. Ethan Darnell DO -Emergency Departmen t Work Phone: Start: 01-07-2025 End: 01-07-2025 Emergency department patient visit Dr. Ramone Smiley MD Work Phone: -Emergency Department Work Phone: Start: 11-21-2024 ambulatory Ramone Smiley Facility:[facility] Start: 11-21-[address] Ramone Smiley MD -Physical Therapy Work Phone: Start: 11-21-2024 Dr. Ramone Smiley MD -Phys ical Therapy Work Phone: Start: 09-27-2024 End: 09-27-[address] Ramone Smiley MD -Laboratory, [facility] Start: 09-27-2024 End: 09-27-2024 Dr. Ramone Smiley MD -Laboratory [facility] Start: 09-27-2024 End: 09-27-2024 ambulatory Ramone Smiley Facility:[facility] Start: 07-19-2024 End: 07-19-2024 ambulatory Asha Anguiano Facility:[facility] Start: 06-19-2024 End: 06-20-2024 Emergency department patient visit Billy Kothari Facility:[facility] Start: 05-30-2024 End: 05-30-2024 Emergency department patient visit Kwaku Marcial Facility:[facility] Start: 05-18-2024 End: 05-18-2024 ambulatory Jason BHATTI Facility:[facility] Start: 04-18-2024 End: 04-18-2024 ambulatory Ramone Smiley Facility:[facility] Start: 03-25-2024 End: 03-25-2024 ambulatory Ramone Smiley Facility:[facility] Start: 03-01-2024 End: 03-01-2024 ambulatory Ramoneramila Smiley Facility:[facility] Start: 02-23-2024 End: 02-23-2024 ambulatory Ramone Smiley Facility:[facility] Start: 12-30-2023 Non-patient / Non-visit Dr. Ramone Smiley Work Phone: [facility] Work Phone: Start: 12-29-2023 Non-patient / Non-visit Dr. Ramone Smiley Work Phone: [facility] Work Phone: Start: 12-28-2023 Non-patient / Non-visit Dr. Ramone Smiley Work Phone: [facility] Work Phone: Start: 12-27-2023 End: 12-30-2023 Evaluation and management of inpatient [facility] 3 Work Phone: Start: 10-26-2023 End: 10-26-[address] Ramone Smiley Work Phone: [facility] Work Phone: Start: 10-26-2023 End: 10-26-[address] Ramone Smiley Work Phone: [facility] Start: 08-17-2023 Non-patient / Non-visit Dr. Ramone Smiley Work Phone: [facility] Work Phone: Start: 08-16-2023 Non-patient / Non-visit Dr. Ramone Smiley Work Phone: [facility] Work Phone: Start: 08-15-2023 Non-patient / Non-visit Dr. Ramone Smiley Work Phone: [facility] Work Phone: Start: 08-14-2023 Non-patient / Non-visit Dr. Ramone Smiley Work Phone: [facility] Work Phone: Start: 08-13-2023 End: 08-17-2023 Evaluation and management of inpatient Dr. Ramone Smiley Work Phone: [facility]-Progressive Care Unit Work Phone: Start: 08-07-2023 End: 08-07-2023 Emergency department patient visit Dr. Ramone Smiley Work Phone: [facility]-Emergency Department Work Phone: Start: 07-18-2023 End: 07-19-2023 Emergency department patient visit Dr. Ramone Smiley Work Phone: [facility]-Emergency Department Work Phone: Start: 07-15-2023 End: 07-15-[address] Ramone Smiley Work Phone: [facility] Work Phone: Start: 06-01-2023 End: 06-01-[address] Ram[facility] Smiley [facility] Work Phone: Start: 05-27-2023 End: 05-27-[address] Ramone Smiley Work Phone: [facility] [place] Work Phone: Start: 05-15-2023 End: 05-15-[address] Ramone Smiley Work Phone: [facility] [place] Work Phone: Start: 03-24-2023 End: 03-24-2023 ambulatory [facility] Work Phone: Start: 03-24-2023 End: 03-24-2023 Patient encounter procedure [facility] Work Phone: Start: 02-05-2023 End: 02-05-2023 ambulatory [facility] Work Phone: Start: 02-05-2023 End: 02-05-2023 Patient encounter procedure [facility], [facility] Start: 01-28-2023 End: 01-28-2023 Emergency department patient visit [facility] Start: 01-28-2023 End: 01-28-2023 ambulatory [facility] Work Phone: Start: 01-28-2023 End: 01-28-2023 Patient encounter procedure [facility] Start: 12-09-2022 End: 12-09-2022 ambulatory [facility] Work Phone: Start: 12-09-2022 End: 12-09-2022 Patient encounter procedure [facility] Start: 08-13-2022 End: 08-13-2022 ambulatory [facility] Work Phone: Start: 08-13-2022 End: 08-13-2022 Patient encounter procedure [facility] Start: 07-14-2022 End: 07-14-2022 Emergency department patient visit [facility] Start: 05-07-2022 End: 05-07-2022 ambulatory 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 APRN.VOLTMETER OPERATOR Work Phone: Hematology/Oncology Comment on above: 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 Ramone Smiley Work Phone: [facility], [facility] Start: 02-26-2022 End: 02-26-[address] Ramone Smiley Work Phone: [facility] Start: 02-10-2022 Telephone encounter Joseph sanders DO Work Phone: Hematology/Oncology Comment on above: Results (CBC and iro n levels) Start: 01-31-2022 Orders Only Joseph Lim Work Phone: Hematology/Oncology Comment on above: Iron deficiency anem ia due to chronic blood loss (Primary Dx) Start: 12-17-2021 End: 12-17-[address] Ramone Smiley Work Phone: [facility] Start: 12-10-2021 End: 12-10-[address] Ramone Smiley Work Phone: [facility] Start: 12-06-2021 End: 12-06-[address] Ramone Smiley Work Phone: [facility] Start: 12-04-2021 End: 12-04-[address] Ramone Smiely Work Phone: [facility] Start: 12-02-2021 End: 12-02-[address] Ramone Smiley Work Phone: [facility] Start: 12-02-2021 End: 12-02-[address] Ramone Smiley Work Phone: [facility] Start: 09-29-2021 Telephone encounter Joseph sanders DO Work Phone: Hematology/Oncology Comment on above: Results; Follow Up Start: 09-13-2021 End: 09-13-[address] Ramone Smiley Work Phone: [facility], [facility] Start: 08-21-[address] Ramone Smiley Work Phone: [facility] Start: 08-12-2021 End: 08-12-[address] Ramone Smiley Work Phone: [facility] Start: 03-14-2021 Telephone encounter Joseph Akhil Oren sanders DO Work Phone: Hematology/Oncology Comment on above: Results Start: 01-18-2018 Ambulatory [facility] Procedures Date Procedure Procedure Detail Performing Clinician Start: 01-26-2025 X-ray of chest, PA a nd lateral views Dr. Ramone Smiley MD Work Phone: Start: 01-26-2025 Blood count smear mc rscp w/mnl difrntl wbc count Dr. Ramone Smiley MD Work Phone: Start: 01-26-[address] Ramone Smiley MD Work Phone: Start: 01-26-2025 Mean corpuscular hem oglobin concentration determination Dr. Ramone Smiley MD Work Phone: Start: 01-26-2025 Nucleated red blood cell count procedure Dr. Ramone Smiley MD Work Phone: Start: 01-26-2025 Platelet mean volume determination Dr. Ramone Smiley MD Work Phone: Start: 01-24-2025 Blood count smear mc rscp w/mnl difrntl wbc count Dr. Ramone Smiley MD Work Phone: Start: 01-24-[address] Ramone Smiley MD Work Phone: Start: 01-24-2025 Mean corpuscular hem oglobin concentration determination Dr. Ramone Smiley MD Work Phone: Start: 01-24-2025 Nucleated red blood cell count procedure Dr. Ramone Smiley MD Work Phone: Start: 01-24-2025 Platelet mean volume determination Dr. Ramone Smiley MD Work Phone: Start: 01-21-2025 Plain chest X-ray Dr. Yoni Smiley MD Work Phone: Start: 01-20-2025 Carbon dioxide measu rement, partial pressure Dr. Ramone Smiley MD Work Phone: Start: 01-20-2025 Gases blood o2 satur ation only direct melanie Dr. Ramone Smiley MD Work Phone: Start: 01-20-2025 Measurement of parti al pressure of oxygen in blood Dr. Ramone Smiley MD Work Phone: Start: 01-20-[address] Ramone Smiley MD Work Phone: Start: 01-20-[address] Ramone Smiley MD Work Phone: Start: 01-20-2025 Legionella pneumophi la antigen assay Dr. Ramone Smiley MD Work Phone: Start: 01-20-[address] Ramone Smiley MD Work Phone: Start: 01-20-2025 Streptococcus pneumo niae antigen assay Dr. Ramone Smiley MD Work Phone: Start: 01-20-[address] Ramone Smiley MD Work Phone: Start: 01-20-[address] Richar Smiley MD Work Phone: Start: 01-20-[address] Ramone Smiley MD Work Phone: Start: 01-20-2025 Total cholesterol:HD L ratio measurement Dr. Ramone Smiley MD Work Phone: Start: 01-20-2025 Streptococcus pneumo niae antigen assay Dr. Ramone Smiley MD Work Phone: Start: 01-20-2025 Urine microscopy: red cells Dr. Ramone Smiley MD Work Phone: Start: 01-20-2025 Urnls dip stick/tabl et reagent auto microscopy Dr. Ramone Smiley MD Work Phone: Start: 01-20-2025 CT angiography of ch est with contrast Dr. Ramone Smiley MD Work Phone: Start: 01-20-2025 Calculation of international normalized ratio Dr. Ramone Smiley MD Work Phone: Start: 01-19-2025 Mean corpuscular hem oglobin concentration determination Dr. Ramone Smiley MD Work Phone: Start: 01-19-2025 Platelet mean volume determination Dr. Ramone Smiley MD Work Phone: Start: 01-15-2025 X-ray of chest, PA a nd lateral views Dr. Ramone Smiley MD Work Phone: Start: 01-15-2025 Blood count smear mc rscp w/mnl difrntl wbc count Dr. Ramone Smiley MD Work Phone: Start: 01-15-[address] Ramone Smiley MD Work Phone: Start: 01-15-2025 Mean corpuscular hem oglobin concentration determination Dr. Ramone Smiley MD Work Phone: Start: 01-15-2025 Nucleated red blood cell count procedure Dr. Ramone Smiley MD Work Phone: Start: 01-15-2025 Platelet mean volume determination Dr. Ramone Smiley MD Work Phone: Start: 01-07-2025 X-ray of chest, PA a nd lateral views Dr. Ramone Smiley MD Work Phone: Start: 01-07-2025 Blood count smear mc rscp w/mnl difrntl wbc count Dr. Ramone Smiley MD Work Phone: Start: 01-07-[address] Ramone Smiley MD Work Phone: Start: 01-07-2025 Mean corpuscular hem oglobin concentration determination Dr. Ramone Smiley MD Work Phone: Start: 01-07-2025 Nucleated red blood cell count procedure Dr. Ramone Smiley MD Work Phone: Start: 01-07-2025 Platelet mean volume determination Dr. Ramone Smiley MD Work Phone: Start: 01-07-2025 SARS-CoV-2, Influenz a & RSV (PCR) Dr. Ramone Smiley MD Work Phone: Start: 01-07-2025 Dr. Ramone butcher MD Work Phone: Start: 09-27-2024 Albumin/Globulin ratio Dr. Ramone Smiley MD Work Phone: Start: 09-27-2024 Anion gap measurement Mirza Smiley MD Work Phone: Start: 09-27-2024 BUN/Creatinine ratio Dr Jesus Smiley MD Work Phone: Start: 09-27-2024 Mean corpuscular hem oglobin concentration determination Dr. Ramone Smiley MD Work Phone: Start: 09-27-2024 Measurement of renal function Dr. Ramone Smiley MD Work Phone: Comment on above: GFR Calc Start: 09-27-2024 Platelet mean volume determination Dr. Ramone Smiley MD Work Phone: Start: 12-28-2023 Plain X-ray of hip Dr. Ramone Smiley Work Phone: Start: 12-28-2023 Fluoroscopic guidance Mirza Smiley Work Phone: Start: 12-28-2023 Plain x-ray of pelvi s and lower extremity Dr. Ramone Smiley Work Phone: Start: 12-28-2023 Prosthetic uncemente d hemiarthroplasty of hip Dr. Ramone Smiley Work Phone: Start: 12-27-2023 Plain chest X-ray Start: 12-27-2023 Plain x-ray of pelvi s and lower extremity Start: 08-13-2023 Bacteria identified in Blood by Culture Dr. Ramone Smiley Work Phone: Start: 08-13-2023 SARS-CoV-2 & FLU Ant igen (Rapid) Dr. Ramone Smiley Work Phone: Start: 08-13-[address] Ramone Smiley Work Phone: Start: 08-13-[address] Ramone Smiley Work Phone: Start: 08-13-2023 Plain chest X-ray Dr. Yoni Smiley Work Phone: Start: 08-07-2023 Plain x-ray of pelvi s and lower extremity Dr. Ramone Smiley Work Phone: Start: 07-18-2023 Plain chest X-ray Dr. Yoni Smiley Work Phone: Start: 07-18-[address] Ramone Smiley Work Phone: Start: 05-15-2023 Plain x-ray of wrist Dr Jesus Smiley Work Phone: Start: 03-24-2023 US urinary tract Start: 03-24-2023 Urine culture Start: 02-05-2023 US scan of thyroid Start: 08-13-2022 Bilateral mammography Start: 07-14-2022 X-ray of lumbar spin e, two or three views Start: 02-27-[address] Richar Smiley Work Phone: Start: 12-02-[address] Ramone Smiley Work Phone: Start: 12-02-2021 Investigation of transfusion reaction Dr. Ramone Smiley Work Phone: Start: 12-02-2021 Microbial culture, routine Dr. Ramone Smiley Work Phone: Start: 09-13-2021 Parathyroid SPECT w/ CONCUR CT Dr. Ramone Smiley Work Phone: Start: 08-21-2021 Screening mammography Mirza Smiley Work Phone: Start: 07-01-2020 H/O: surgery H/O dilation a nd curettage Dr. Ramone Smiley Work Phone: Comment on above: polyp removal Start: 01-13-2017 End: 01-13-2017 Documentation of current medications Zuleika Heaton Start: 10-09-2015 End: 04-02-2016 Follow Up Appt 6 months Connor Rausch Start: 10-09-2015 End: 04-02-2016 BRODIE Good MD Start: 08-29-2015 End: 08-29-2015 LABELING ASSOCIATE Se Good MD Start: 08-29-2015 End: 08-29-2015 Electrocardiogram, complete Se Lara i, MD Start: 08-29-2015 End: 08-29-2015 Follow Up Appt 6 weeks Se Good MD Anaerobic microbial culture Dr. Ramone Smiley Work Phone: Investigation of transfusion reaction Dr. Ramone Smiley Work Phone: Microbial culture, routine D niels Smiley Work Phone: Urine culture Plan of Treatment Date Care Activity Detail Author Start: 01-26-[address] [facility] Start: 01-24-[address] [facility] Start: 01-24-2025 Patient discharge [facility] Start: 01-21-[address] [facility] Start: 01-21-2025 Referral to head refrigerating engineer [facility] Start: 01-20-2025 Oxygen therapy [facility] Start: 01-20-2025 Blood culture [facility] Start: 01-20-2025 Notification of physician [facility] Start: 01-20-[address] [facility] Start: 01-20-2025 End: 01-20-2025 [facility] Start: 01-20-2025 Application of intermittent pneumatic compression device [facility] Start: 01-20-2025 Following clinical pathway protocol [facility] Start: 01-20-2025 Cardiac monitoring [facility] Start: 01-20-2025 Catheterization of vein [facility] Start: 01-20-2025 Notification of physician [facility] Start: 01-20-2025 Vital signs measurements [facility] Start: 01-20-[address] [facility] Start: 01-20-2025 End: 01-20-2025 [facility] Start: 01-20-2025 Care regimes management [facility] Start: 01-20-2025 Inhalation therapy procedure [facility] Start: 01-20-2025 Patient referral to dietitian [facility] Start: 01-15-[address] [facility] Start: 01-15-[address] [facility] Start: 01-07-[address] [facility] Start: 12-30-2023 Patient discharge [facility] Start: 12-30-2023 Inhalation therapy procedure [facility] Start: 12-28-2023 Application of intermittent pneumatic compression device [facility] Start: 12-28-2023 Provision of overbed trapeze [facility] Start: 12-28-2023 Recommendation to continue with treatment [facility] Start: 12-28-2023 Ambulation therapy management [facility] Start: 12-28-2023 Application of device W [facility] Start: 12-28-2023 Assessment of risk o f venous thromboembolism [facility] Start: 12-28-2023 Catheterization of vein [facility] Start: 12-28-[address] [facility] Start: 12-28-2023 Following clinical pathway protocol [facility] Start: 12-28-2023 Introduction of urin david catheter [facility] Start: 12-28-2023 Measuring intake and output [facility] Start: 12-28-2023 Neurovascular assessment [facility] Start: 12-28-2023 Patient education [facility] Start: 12-28-2023 Procedure discontinued [facility] Start: 12-28-2023 Provision of activit y privileges [facility] Start: 12-28-2023 Referral to occupati onal therapist [facility] Start: 12-28-[address] [facility] Start: 12-28-2023 Vital signs measurements [facility] Start: 12-28-[address] [facility] Start: 12-28-[address] [facility] Start: 12-28-2023 Blood chemistry [facility] Start: 12-28-2023 Complete blood count [facility] Start: 12-28-2023 Following clinical pathway protocol [facility] Start: 12-28-2023 Assessment of risk o f venous thromboembolism [facility] Start: 12-28-2023 Care regimes management [facility] Start: 12-28-[address] [facility] Start: 12-28-2023 Incentive spirometry [facility] Start: 12-28-2023 Insertion of cathete r into peripheral vein [facility] Start: 12-28-2023 Notification of physician [facility] Start: 12-28-2023 Oxygen therapy [facility] Start: 12-28-2023 Providing care accor ding to standard [facility] Start: 12-28-2023 Provision of activit y privileges [facility] Start: 12-28-2023 Referral to occupati onal therapist [facility] Start: 12-28-[address] [facility] Start: 12-28-[address] [facility] Start: 12-27-2023 Verification routine [facility] Start: 12-27-[address] [facility] Start: 08-17-[address] [facility] Start: 08-17-2023 Patient discharge [facility] Start: 08-16-[address] [facility] Start: 08-13-2023 Following clinical pathway protocol [facility] Start: 08-13-2023 Assessment of risk o f venous thromboembolism [facility] Start: 08-13-2023 Care regimes management [facility] Start: 08-13-2023 Insertion of cathete r into peripheral vein [facility] Start: 08-13-2023 Measuring intake and output [facility] Start: 08-13-2023 Notification of physician [facility] Start: 08-13-2023 Providing care accor ding to [facility] Start: 08-13-2023 Provision of activit y privileges [facility] Start: 08-13-2023 Referral to occupati onal therapist [facility] Start: 08-13-[address] [facility] Start: 08-13-[address] [facility] Start: 08-13-[address] [facility] Start: 08-13-2023 Verification routine [facility] Start: 08-13-2023 Bacteria identified in Blood by Culture Blood Culture [facility] Start: 08-13-2023 Bacteria identified in Urine by Culture Urine Culture [facility] Start: 08-13-2023 Hospital admission, emergency, from emergency room, medical nature [facility] Start: 08-13-[address] [facility] Start: 08-13-2023 End: 08-13-2023 Blood culture [facility] Start: 08-13-2023 Inhalation therapy procedure [facility] Start: 08-13-2023 Patient referral to dietitian [facility] Start: 08-07-[address] [facility] Start: 07-19-2023 End: 07-19-2023 [facility] Start: 07-18-2023 Measurement of occul t blood in stool specimen using immunoassay [facility] Start: 07-18-2023 Bacteria identified in Urine by Culture Urine Culture [facility] Start: 05-07-2022 BP CONTROLLED (<130/80) BP CONTROLLE D (<130/80) [facility] Start: 05-01-2022 Influenza vaccination C [facility] Start: 03-28-2022 COVID-19 VACCINE (4 - Booster for Moderna series) COVID-19 VACCINE (4 - Booster for Moderna series) [facility] Start: 09-29-2021 End: 09-29-2022 MONOCLONAL PROTEIN, SERUM (BLOOD) MONOCLONAL PROTEIN, SERUM (BLOOD) Lab Routine Anemia, unspecified type Expected: 09/29/2021, Expires: 09/29/2022 [facility] Work Phone: Comment on above: Expected: 09/29/2021 , Expires: 09/29/2022 Start: 09-29-2021 End: 09-29-2022 PROTEIN ELECTROPHORESIS SERUM W/INTERP PROTEIN ELECTROPHORESIS SERUM W/INTERP Lab Routine Anemia, unspecified type Expected: 09/29/2021, Expires: 09/29/2022 [facility] Work Phone: Comment on above: Expected: 09/29/2021 , Expires: 09/29/2022 Start: 08-31-2021 ADVANCE DIRECTIVE DISCUSSION ADVANCE DIRECTIVE DISCUSSION [facility] Start: 05-16-2021 COVID-19 VACCINE (3 - Booster for Moderna series) COVID-19 VACCINE (3 - Booster for Moderna series) [facility] Start: 05-04-2018 Urine microalbumin profile DTAP,TDAP,TD (2 - Td or Tdap) [facility] Start: 08-16-2016 3 comp foot exam completed DIABETIC FOOT EXAM [facility] Start: 10-09-2015 End: 04-02-2016 Follow Up Appt 6 months Follow Up Appt 6 months [facility] Work Phone: Start: 10-09-2015 End: 04-02-2016 MMM MMM [facility] Work Phone: Start: 08-29-2015 End: 08-29-2015 LABELING ASSOCIATE LABELING ASSOCIATE [facility] Work Phone: Start: 08-29-2015 End: 08-29-2015 Electrocardiogram, complete EKG (In office) [facility] Work Phone: Start: 08-29-2015 End: 08-29-2015 Follow Up Appt 6 weeks Follow Up Appt 6 weeks [facility] Work Phone: Start: 07-01-2014 Hemoglobin A1c/Hemoglobin.total in Blood HBA1C [facility] Start: 06-25-2014 Hepatitis B surface antibody level LDL CHOLESTEROL [facility] Start: 06-17-2014 Hepatitis C antibody , confirmatory test DILATED RETINAL EXAM [facility] Start: 02-12-2013 PNEUMOCOCCAL: 65+ (2 - PCV) PNEUMOCOCCAL: 65+ (2 - PCV) [facility] Start: 02-12-2013 PNEUMOCOCCAL: 65+ (3 - PCV) PNEUMOCOCCAL: 65+ (3 - PCV) [facility] Start: 02-18-2012 SHINGRIX VACCINE (1 of 2) MORENO GRIX VACCINE (1 of 2) [facility] Start: 02-18-2012 SHINGRIX VACCINE (2 of 3) MORENO GRIX VACCINE (2 of 3) [facility] Start: 01-02-1962 ANNUAL PCP TEAM SALE PROFESSIONAL DIGITAL MARKETING ERIS DISEASE VISIT ANNUAL PCP TEAM CHRONIC DISEASE VISIT [facility] Start: 01-02-1962 BP CONTROLLED (<130/80) BP CONTROLLE D (<130/80) [facility] Start: 01-02-1962 HEPATITIS C SCREENING HEPATITIS C [facility] Start: 1956 Adult depression screening assessment DEPRESSION SCREENING [facility] Anion gap measurement [facility] BUN/Creatinine ratio [facility] Calcium [Mass/volume ] in Serum or Plasma [facility] Carbon dioxide, tota l [Moles/volume] in Serum or Plasma [facility] End: 01-31-2023 CBC W Auto Differential panel - Blood CBC + DIFF Lab STAT Iron deficiency anemia due to chronic blood loss Every 3 months for 4 Occurrences starting 01/31/2022 until 01/31/2023 [facility] Work Phone: Comment on above: Every 3 months for 4 Occurrences starting 01/31/2022 until 01/31/2023 End: 09-29-2022 CBC W Auto Differential panel - Blood CBC + DIFF Lab Routine Anemia, unspecified type 1 Occurrences starting 09/29/2021 until 09/29/2022 [facility] Work Phone: Comment on above: 1 Occurrences starti ng 09/29/2021 until 09/29/2022 Chloride [Moles/volu me] in Serum or Plasma [facility] End: 09-29-2022 Comprehensive metabolic 2000 panel - Serum or Plasma COMP METABOLIC PANEL Lab Routine Anemia, unspecified type 1 Occurrences starting 09/29/2021 until 09/29/2022 [facility] Work Phone: Comment on above: 1 Occurrences starti ng 09/29/2021 until 09/29/2022 Creatinine [Moles/vo lume] in Serum or Plasma [facility] Erythrocyte mean corpuscular volume determination [facility] End: 01-31-2023 FERRITIN BLD FERRITIN BLD Lab Routine Iron deficiency anemia due to chronic blood loss Every 3 months for 4 Occurrences starting 01/31/2022 until 01/31/2023 [facility] Work Phone: Comment on above: Every 3 months for 4 Occurrences starting 01/31/2022 until 01/31/2023 Glucose [Mass/volume ] in Serum or Plasma [facility] Hematocrit [Volume Fraction] of Blood [facility] Hemoglobin [Mass/vol ume] in Blood [facility] Hemoglobin A1c/Hemoglobin.total in Blood [facility] End: 01-31-2023 IRON + TIBC IRON + TIBC Lab Routine Iron deficiency anemia due to chronic blood loss Every 3 months for 4 Occurrences starting 01/31/2022 until 01/31/2023 [facility] Work Phone: Comment on above: Every 3 months for 4 Occurrences starting 01/31/2022 until 01/31/2023 Leukocytes [#/volume ] in Blood [facility] Mean corpuscular hemoglobin concentration determination [facility] Mean corpuscular hemoglobin determination [facility] Measurement of renal function [facility] Patient Education [facility] Work Phone: Patient referral [facility] Work Phone: Platelets [#/volume] in Blood [facility] Potassium [Moles/vol ume] in Serum or Plasma [facility] Red blood cell count [facility] Red cell distributio n width determination [facility] Sodium [Moles/volume ] in Serum or Plasma [facility] Troponin T.cardiac [Mass/volume] in Serum or Plasma by High sensitivity method [facility] Urea nitrogen [Mass/volume] in Serum or Plasma [facility] Immunizations Immunization Date Immunization Notes Care Provider Larissa cuadra 07-03-2022 influenza, injectabl e, quadrivalent, preservative free Dr. Ramone Smiley MD Work Phone: [facility] 11-26-2021 Covid (Moderna) Dr. Ramone leon MD Work Phone: [facility] 08-22-2015 pneumococcal conjuga te vaccine, [address] Ramone Smiley MD Work Phone: [facility] 07-12-2012 influenza virus vacc ine, unspecified formulation Joseph Rolle DO Work Phone: [facility] 02-13-2012 pneumococcal polysaccharide vaccine, 23 valent Joseph Rolle DO Work Phone: [facility] 12-24-2011 zoster vaccine, live Joseph Chen chatterjee DO Work Phone: [facility] 06-02-2011 influenza virus vacc ine, unspecified formulation Joseph Rolle DO Work Phone: [facility] 08-09-2010 influenza virus vacc jcarlos, unspecified formulation Joseph Rolle DO Work Phone: [facility] 05-30-2009 influenza virus vacc ine, unspecified formulation Joseph Rolle DO Work Phone: [facility] 09-07-2008 influenza virus vacc ine, unspecified formulation Joseph Rolle DO Work Phone: [facility] Work Phone: 05-04-2008 tetanus toxoid, redu octavio diphtheria toxoid, and acellular pertussis vaccine, adsorbed Joseph Rolle DO Work Phone: [facility] Work Phone: 06-28-2007 influenza virus vacc jcarlos, unspecified formulation Joseph Rolle DO Work Phone: [facility] Work Phone: 08-31-2005 pneumococcal polysaccharide vaccine, 23 valent Joseph Rolle DO Work Phone: [facility] Work Phone: Payers Date Payer Category Payer Self-pay [id number] 2017 Medicare HUMANA MEDICARE HUMANA MEDICARE PPO [id number] 2017-Present [phone] [place] [address] PPO [id number] 2017 Medicare HUMANA MEDICARE HUMANA MEDICARE PPO [id number] 2017-Present [phone] [place], [place] [id number] PPO [id number] 2016 Medicare [id number] Private Health Insurance Unknown [id number] 2..840.1.539850.3.579. 2.462 Unknown [id number] 2.840.1.630849.3.579. 2.462 Unknown [id number] 2.840.1.139578.3.579. 2.462 Unknown [id number] 2.840.1.592006.3.579. 2.462 Unknown [id number] 2.840.1.148767.3.579. 2.462 Unknown [id number] 2.840.1.407813.3.579. 2.462 Unknown [id number] 2.840.1.005013.3.579. 2.462 Unknown [id number] 2.840.1.578335.3.579. 2.462 Unknown [id number] 2.840.1.125446.3.579. 2.462 Unknown [id number] 2.840.1.692569.3.579. 2.462 Unknown [id number] 2.840.1.121388.3.579. 2.462 Unknown [id number] 2.840.1.132451.3.579. 2.462 Unknown [id number] 2.840.1.721221.3.579. 2.462 Unknown [id number] 2.840.1.156747.3.579. 2.462 Unknown [id number] .840.1.842880.3.579. 2.462 Unknown [id number] 2.840.1.783284.3.579. 2.462 Unknown [id number] 2.840.1.148815.3.579. 2.462 Unknown [id number] 2.840.1.567856.3.579. 2.462 Unknown [id number] 2.840.1.546445.3.579. 2.462 Unknown [id number] 2.840.1.205163.3.579. 2.462 Unknown [id number] 2.840.1.382876.3.579. 2.462 Unknown [id number] 2.840.1.268418.3.579. 2.462 Unknown [id number] 2.0.1.230245.3.579. 2.462 Social History Date Type Detail Facility Start: 12-06-2021 End: 08-13-2023 Tobacco smoking status [facility] [[email or web address] Unknown if ever smoked [facility] Start: 12-02-[address] [facility] Start: 12-02-2019 Spouse/ Signif icant Other [facility] Start: 07-06-2020 Non-smoker [facility] Start: 1945 Sex Assigned At Female W [facility] Start: 02-03-2012 End: 01-26-2025 Tobacco smoking status [facility] Ex-smoker [facility] End: 01-30-2012 History of tobacco use Current smoker [facility] End: 01-30-2012 History of tobacco use Cigarette Smoker [facility] Start: 02-03-2012 End: 03-22-2012 Cigarettes smoked current (pack per day) - Reported 0.5 [facility] Start: 02-03-2012 End: 03-22-2012 Tobacco use and exposure Smokeless tobacco non-user [facility] Start: 05-07-2021 End: 05-07-2022 Alcohol intake Current non-drinker of alcohol (finding) [facility] Start: 1945 Sex Assigned At Not on file C [facility] Start: 10-05-2021 End: 11-04-2021 Exposure to SARS-CoV-2 (event) Not sure [facility] NEGATED: Highlighted row [facility] Medical Equipment Procedure Code Equipment Code Equipment Origin al Text Equipment Identifier Dates 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 Start: 12-28-2023 Primary uncemented hemiarthroplasty of hip unitrax neck adjustment sleeve FDA Start: 12-28-2023 Primary uncemented hemiarthroplasty of hip ([id number]) [id number] FDA Start: 12-28-2023 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 Start: 12-28-2023 Primary uncemented hemiarthroplasty of hip unitrax neck adjustment sleeve FDA Start: 12-28-2023 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 Start: 12-28-2023 Primary uncemented hemiarthroplasty of hip unitrax neck adjustment sleeve FDA Start: 12-28-2023 Primary uncemented hemiarthroplasty of hip FDA Start: 12-28-2023 Primary uncemented hemiarthroplasty of hip FDA Start: 12-28-2023 Primary uncemented hemiarthroplasty of hip FDA Start: 12-28-2023 Primary uncemented hemiarthroplasty of hip FDA Start: 12-28-2023 Primary uncemented hemiarthroplasty of hip FDA Start: 12-28-2023 Primary uncemented hemiarthroplasty of hip FDA Start: 12-28-2023 LEAD KIT 28CM BLADDER STIM FDA Start: 10-19-2018 GENERATOR,BLADDE R STIM FDA Start: 11-22-2018 LEAD KIT 28CM BLADDER STIM FDA Start: 10-19-2018 GENERATOR,BLADDE R STIM FDA Start: 11-22-2018 LEAD KIT 28CM BLADDER STIM FDA Start: 10-19-2018 GENERATOR,BLADDE R STIM FDA Start: 11-22-2018 LEAD KIT 28CM BLADDER STIM FDA Start: 10-19-2018 GENERATOR,BLADDE R STIM FDA Start: 11-22-2018 LEAD KIT 28CM BLADDER STIM FDA Start: 10-19-2018 GENERATOR,BLADDE R STIM FDA Start: 11-22-2018 LEAD KIT 28CM BLADDER STIM FDA Start: 10-19-2018 GENERATOR,BLADDE R STIM FDA Start: 11-22-2018 LEAD KIT 28CM BLADDER STIM FDA Start: 10-19-2018 GENERATOR,BLADDE R STIM FDA Start: 11-22-2018 LEAD KIT 28CM BLADDER STIM FDA Start: 10-19-2018 GENERATOR,BLADDE R STIM FDA Start: 11-22-2018 LEAD KIT 28CM BLADDER STIM FDA Start: 10-19-2018 GENERATOR,BLADDE R STIM FDA Start: 11-22-2018 LEAD KIT 28CM BLADDER STIM FDA Start: 10-19-2018 GENERATOR,BLADDE R STIM FDA Start: 11-22-2018 LEAD KIT 28CM BLADDER STIM FDA Start: 10-19-2018 GENERATOR,BLADDE R STIM FDA Start: 11-22-2018 LEAD KIT 28CM BLADDER STIM FDA Start: 10-19-2018 GENERATOR,BLADDE R STIM FDA Start: 11-22-2018 LEAD KIT 28CM BLADDER STIM FDA Start: 10-19-2018 GENERATOR,BLADDE R STIM FDA Start: 11-22-2018 LEAD KIT 28CM BLADDER STIM FDA Start: 10-19-2018 GENERATOR,BLADDE R STIM FDA Start: 11-22-2018 LEAD KIT 28CM BLADDER STIM FDA Start: 10-19-2018 GENERATOR,BLADDE R STIM FDA Start: 11-22-2018 LEAD KIT 28CM BLADDER STIM FDA Start: 10-19-2018 GENERATOR,BLADDE R STIM FDA Start: 11-22-2018 Lancets (Lancets 28 Gauge) 28 gauge misc Start: 01-07-2025 LEAD KIT 28CM BLADDER STIM FDA Start: 10-19-2018 GENERATOR,BLADDE R STIM FDA Start: 11-22-2018 Lancets (Lancets 28 Gauge) 28 gauge misc Start: 01-07-2025 FDA Start: 10-19-2018 FDA Start: 11-22-2018 FDA Start: 10-19-2018 FDA Start: 11-22-2018 FDA Start: 10-19-2018 FDA Start: 11-22-2018 Goals Date Patient Goal Desired Activity /State Functional Status Date Assessment Result Facility 01-24-2025 Functional status Ambulates [facility] Work Phone: 01-23-2025 Functional status Fair [facility] Work Phone: 12-30-2023 Functional status Bedrest [facility] Work Phone: 08-17-2023 Functional status Ambulates [facility] Work Phone: Mental Status Date Assessment Result Facility 01-24-2025 Cognitive function Voice/Name [facility] Work Phone: 12-30-2023 Cognitive function Voice/Name [facility] Work Phone: 08-17-2023 Cognitive function Voice/Name [facility] Work Phone: 08-13-2023 Cognitive function Level Of Cons ciousness Awake;Alert;Appropriate;Follow s Commands [facility] Work Phone: 01-28-2023 Cognitive function Level Of Cons ciousness Awake;Alert;Appropriate;Follow s Commands [facility] Work Phone: Clinical Notes 03-14-2021 to 01-26-2025 Note Date & Type Note Facility 01-26-2025 Radiology Diagnostic study note [facility] 01-24-[address] [facility] 01-23-2025 Progress note Note Date/Time January 23, 2025 3:40p m [facility] Medical Records Department [address] [place] [address] Progress Note - Cardiology 01/23/25 1528 MR#: [id number] Acct: [id number] Name: OLGA DONALDSON Rep #:[id number] : 1945 80 From: Becca Silverman MD PCP: Dr. Ramone Smiley MD Status:ADM IN Location: [place] [address] Subjective Subjective Seen and evaluated at bedside today and she is feeling better Objective Data Vital Signs: Vital Signs Temp Pulse Resp BP Pulse Ox O2 Del Method O2 Flow Rate 98.6 F 87 18 114/56 L 94 Room Air 2 01/23/25 14:00 01/23/25 14:00 01/23/25 14:00 01/23/25 14:00 01/23/25 14:00 01/23/25 14:00 01/22/25 11:00 FiO2 24 01/22/25 02:00 Oxygen Flow Rate (L/min) 2 Oxygen Delivery Method Room Air Weight: 169 lb 12.095 oz Body Mass Index (BMI) 30.0 Intake & Output: Intake and Output for Last 24 Hours 01/21/25 01/22/25 01/23/25 23:59 23:59 23:59 Intake Total 940 / 1190 790 / 1040 1000 / 1000 Output Total 2200 / 3075 1925 / 1925 1700 / 1700 Balance -1260 / -1885 -1135 / -885 -700 / -700 Lab / Micro Data 01/23/25 05:29 01/23/25 05:29 Labs: Laboratory Results - last 24 hr 01/22/25 16:41: POC Glucose 269 H 01/22/25 21:11: POC Glucose 310 H 01/23/25 05:29: WBC 12.0 H, RBC 4.80, Hgb 13.1, Hct 41.8, MCV 87.1, MCH 27.3, MCHC 31.3 L, RDW Std Deviation 50.2 H, RDW Coeff of Vijay 15.8 H, Plt Count 322, MPV 11.6, Immature Gran % (Auto) 0.200, Neut % (Auto) 90.8 H, Lymph % (Auto) 6.2L, Bacon % (Auto) 2.7, Eos % (Auto) 0.0, Baso % (Auto) 0.1, Absolute Neuts (auto)10.9 H, Absolute Lymphs (auto) 0.74 L, Nucleated RBC % 0, Sodium 135, Potassium 5.2 H, Chloride 98, Carbon Dioxide 25.4, Anion Gap 12, BUN 44 H, Creatinine 1.32H, Estim Creat Clear Calc 32.84 L, Est GFR (MDRD) Non-Af 41 L, BUN/Creatinine Ratio 33.0 H, Glucose 200 H, Calcium 10.8 01/23/25 06:36: POC Glucose 214 H 01/23/25 11:45: POC Glucose 291 H Micro: Microbiology 01/20/25 04:58 Blood Culture (Wb) - Anticubital Right Blood Culture - Preliminary No growth in 48 hours. 01/20/25 00:30 Blood Culture (Wb) - Right Hand Blood Culture - Preliminary No growth in 48 hours. 01/20/25 00:05 Blood Culture (Wb) - Right Hand Blood Culture - Preliminary No growth in 48 hours. Rhythm Strip Rhythm Strip: Sinus Rhythm Cardiology Labs/Tests 01/23/25 05:29: WBC 12.0 H, RBC 4.80, Hgb 13.1, Hct 41.8, MCV 87.1, MCH 27.3, MCHC 31.3 L, Plt Count 322, MPV 11.6, Immature Gran % (Auto) 0.200, Neut % (Auto)90.8 H, Lymph % (Auto) 6.2 L, Bacon % (Auto) 2.7, Eos % (Auto) 0.0, Baso % (Auto)0.1, Absolute Neuts (auto) 10.9 H, Nucleated RBC % 0, Sodium 135, Potassium 5.2 H, Chloride 98, Carbon Dioxide 25.4, Anion Gap 12, BUN 44 H, Creatinine 1.32 H, Est GFR (MDRD) Non-Af 41 L, BUN/Creatinine Ratio 33.0 H, Glucose 200 H, Calcium 10.8 Rhythm: EKG: ECHO: Stress Test: Cardiac Cath: PCI: CT Surgery: Holter monitor: EPS: PPM: CXR: Chest CT Scan: Physical Exam Cardio Cardio Narrative: Cardiac rhythm is sinus rhythm Cardiovascular exam S1-S2 is regular Chest exam showed diminished air entry bilateral. No lower extremity edema Assessment & Plan Assessment/Plan (1) Acute hypoxic on chronic hypercapnic respiratory failure: (2) Pneumonia: QUALIFIERS: Pneumonia type: due to unspecified organism Laterality: right Lung location: lower lobe of lung Qualified Code(s): J18.9 - Pneumonia, unspecified organism (3) CHF exacerbation: QUALIFIERS: Heart failure type: systolic Qualified Code(s): I50.23 - Acute on chronic systolic (congestive) heart failure PLAN: Plan Cardiac care plan; 80-year-old patient seen and evaluated today. Patient has acute exacerbation of heart failure reduced EF/HFrEF Echocardiographic evaluation showed ejection fraction in the range of 35-40% Moderate global LV hypokinesia. Currently she has been on guideline directed medical therapy Remarkable change in the echocardiogram from previous echocardiogram which was in 2020 her EF at that time was 70%. Patient currently on CHF protocol with fluid restriction in addition patient hasbeen on guideline directed medical therapy including Entresto, beta-jefe metoprolol, diuretic with Lasix monitoring of the lites and renal function patient also had a history of pneumonia And has been on antibiotic with levofloxacin Continue medical treatment and once stable clinically she can be set up for further cardiac evaluation possible cardiac catheterization which can be set up as an outpatient. Patient has elevated creatinine at 1.32 and estimated moderate GFR Mild elevation of high sensitive troponin likely demand myocardial ischemia in the setting of pneumonia and renal insufficiency. From cardiac standpoint to continue guideline directed medical therapy and once stable to set up an appointment to be seen by head refrigerating engineer as an outpatient and discussed further plan possible Lexiscan sestamibi and based on results of Lexiscan sestamibi to consider further evaluation. To minimize risk of contrast-induced nephropathy. Becca Silverman MD,[facility] 01/23/25 1540 <Electronically signed by Becca Silverman MD> Cosigner Signature (if applicable): CC: ~ Signed [facility] Work Phone: 1(146) 221-893005-26-2025 Progress [facility] Note Date/Time January 23, 2025 2:43p m [facility] Medical Records Department [address] [place] [address] Progress Note 01/23/25 1037 MR#: [id number] Acct: [id number] Name: OLGA DONALDSON Rep #:[id number] : 1945 80 From: Melba Hartmann MD PCP: Dr. Ramone Smiley MD Status:ADM IN Location: [place] [address] Subjective Subjective Patient seen and examined. She says she is feeling much better today. She is on room air now. Objective Data Objective Data Vital Signs: Vital Signs Temp Pulse Resp BP Pulse Ox O2 Del Method O2 Flow Rate 98.7 F 84 18 107/67 95 Room Air 2 01/23/25 08:57 01/23/25 08:57 01/23/25 08:57 01/23/25 08:57 01/23/25 08:57 01/23/25 08:57 01/22/25 11:00 FiO2 24 01/22/25 02:00 Oxygen Flow Rate (L/min) 2 Oxygen Delivery Method Room Air Weight: 169 lb 12.095 oz Body Mass Index (BMI) 30.0 Intake & Output: Intake and Output for Last 24 Hours 01/21/25 01/22/25 01/23/25 23:59 23:59 23:59 Intake Total 940 / 1190 790 / 1040 400 / 400 Output Total 2200 / 3075 1925 / 1925 1000 / 1000 Balance -1260 / -1885 -1135 / -885 -600 / -600 Lab / Micro Data 01/23/25 05:29 01/23/25 05:29 Labs: Laboratory Results - last 24 hr 01/22/25 11:25: POC Glucose 232 H 01/22/25 16:41: POC Glucose 269 H 01/22/25 21:11: POC Glucose 310 H 01/23/25 05:29: WBC 12.0 H, RBC 4.80, Hgb 13.1, Hct 41.8, MCV 87.1, MCH 27.3, MCHC 31.3 L, RDW Std Deviation 50.2 H, RDW Coeff of Vijay 15.8 H, Plt Count 322, MPV 11.6, Immature Gran % (Auto) 0.200, Neut % (Auto) 90.8 H, Lymph % (Auto) 6.2L, Bacon % (Auto) 2.7, Eos % (Auto) 0.0, Baso % (Auto) 0.1, Absolute Neuts (auto)10.9 H, Absolute Lymphs (auto) 0.74 L, Nucleated RBC % 0, Sodium 135, Potassium 5.2 H, Chloride 98, Carbon Dioxide 25.4, Anion Gap 12, BUN 44 H, Creatinine 1.32H, Estim Creat Clear Calc 32.84 L, Est GFR (MDRD) Non-Af 41 L, BUN/Creatinine Ratio 33.0 H, Glucose 200 H, Calcium 10.8 01/23/25 06:36: POC Glucose 214 H Micro: Microbiology 01/20/25 04:58 Blood Culture (Wb) - Anticubital Right Blood Culture - Preliminary No growth in 48 hours. 01/20/25 00:30 Blood Culture (Wb) - Right Hand Blood Culture - Preliminary No growth in 48 hours. 01/20/25 00:05 Blood Culture (Wb) - Right Hand Blood Culture - Preliminary No growth in 48 hours. 01/20/25 01:58 Urine, Catheterized Urine Culture - Final Proteus mirabilis 01/20/25 04:35 Mucosa - Nasopharyngeal Respiratory Panel (PCR) - Final 01/20/25 01:58 Urine Catheter - Serna Legionella Antigen - Final 01/20/25 01:58 Urine Catheter - Serna Streptococcus pneumoniae Antigen (M - Final Rhythm Strip Rhythm Strip: Sinus Rhythm Physical Exam Const alert, oriented x3, no apparent distress and well nourished Constitutional Narrative: Mild distress noted. General Appearance: cooperative and well developed HEENT normocephalic, head/scalp atraumatic, hearing grossly normal bilaterally, moist oral mucous membranes, oropharynx normal and gingiva normal Eyes PERRL and EOMs intact bilaterally Neck no lymphadenopathy, supple and no JVD Lymph Lymphatic: no lymphadenopathy noted and no lymphedema noted Resp Resp Narrative: mildly diminished breath sounds bibasally, no wheezes or crackles. On room air Cardio regular rate, regular rhythm, S1 normal heart sound, S2 normal heart sound and no murmurs GI normal to inspection, nondistended, normoactive bowel sounds, soft to palpation,non-tender and non-distended GI Narrative: Obese. Extremity normal to inspection, full ROM and no clubbing, cyanosis or edema Extremity Narrative: lower extremities have no edema, hyperpigmented lower extremities, distal pulsespalpable. General Extremity: no tenderness to palpation of joints or extremities Skin Skin Narrative: Patient has evidence of rash, abscess, wounds or jaundice. General Skin Exam: no breakdown Neuro oriented x3, CN's II-XII intact bilaterally, moves all extremities, no focal motor deficits and no sensory deficits noted Sensorium / Orientation: awake, alert, oriented to person, oriented to place andoriented to time Speech: speech normal Motor Exam: strength 5/5 throughout and general weakness Psych thought process normal, cooperative and affect normal Appearance: appropriate Assessment & Plan Assessment/Plan (1) CHF exacerbation: QUALIFIERS: Heart failure type: systolic Qualified Code(s): I50.23 - Acute on chronic systolic (congestive) heart failure PLAN: Plan #Hypoxia due to right lower lobe pneumonia and acute COPD exacerbation * Was admitted with shortness of breath. CTA of the chest showed no PE but showed evidence of right lower lobe pneumonia * Currently on PO levofloxacin * wbc is down to 12 today, from 12.8 yesterday. * was transfered to ICU yesterday due to concerns about worsening shortness of breath. She was on airvo but has been weaned down to 2L of oxygen this morning * 2D echo showed EF of 35-40% with moderate hypokinesia of hte left ventricle * breathing treatment with bronchodilators. Titrate oxygen to maintain sats >90% * IV solumedrol. Breathing treatment with bronchodilators. * #Acute exacerbation of HFrEF * Patient's proBNP was 9000 on admission and is now over 21,000. She was started on diuresis with IV Lasix 40 twice daily * 2D echo as above which shows EF of 35 to 40% with moderate hypokinesis of the left ventricle. * Continue diuresis with IV Lasix 40 mg twice daily. Last EF per records was from an echo done in 2020 which showed EF of 70% and no evidence of hypokinesia. * fluid restriction to 1500cc daily. * Titrate oxygen to maintain sats >90% * Cardiology on board. Patient started on Entresto and carvedilol as well as jardiance. Per cardiology, to have cardiac cath once her respiratory status has improved. * #Hyperkalemia: * Potassium is 5.3 today. * Will DC potassium supplements and give p.o. Kayexalate 30 mg x 1 and trend potassium. * #UTI * urine cultures growing Proteus which is sensitive to levofloxacin. * will continue PO levofloxacin * # Benign essential hypertension: * metoprolol and cardizem dc'd. Patient now on PO carvedilol. * IV hydralazine prn #Type 2 diabetes mellitus with neuropathy * On Lantus. Also on sitagliptin and empagliflozin as well as tirzepatide At home. These were held * on ISS. Accuchecks ACHS. * on gabapentin * #History of left sided breast cancer: s/p lumpectomy in 2003. #History of multinodular goiter. stable #Glaucoma: on netarsudil-latanoprost eye drops. #History of neurogenic bladder: stable #GERD: On PPI #DVT prophylaxis: Heparin Charges/Coding Visit Charges Inpatient E&M: 25469 Subs Hosp L2 01/23/25 1443 <Electronically signed by Melba Hartmann MD> Melba Hartmann MD Cosigner Signature (if applicable): CC: ~ Signed [facility] Work Phone: 1(257) 506-452605-25-2025 Progress [facility] Note Date/Time January 22, 2025 2:00p m [facility] Medical Records Department [address] [place] [address] Progress Note 01/22/25 0949 MR#: [id number] Acct: [id number] Name: OLGA DONALDSON Rep #:[id number] : 1945 80 From: Melba Hartmann MD PCP: Dr. Ramone Smiley MD Status:ADM IN Location: [place] [address] 1 Subjective Subjective Patient seen and examined this morning. She says she felt much better. She didrequire the BiPAP again last night. She is now on 2 L of oxygen. Review of systems otherwise negative. She is requesting that I give her son a call to update him about her medical condition. Objective Data Objective Data Vital Signs: Vital Signs Temp Pulse Resp BP Pulse Ox O2 Del Method O2 Flow Rate 97.0 F L 86 16 115/71 100 Nasal Cannula 2 01/22/25 04:00 01/22/25 08:00 01/22/25 08:00 01/22/25 08:00 01/22/25 08:00 01/22/25 08:00 01/22/25 08:00 FiO2 24 01/22/25 02:00 Oxygen Flow Rate (L/min) 2 Oxygen Delivery Method Nasal Cannula Weight: 170 lb Body Mass Index (BMI) 30.1 Intake & Output: Intake and Output for Last 24 Hours 01/20/25 01/21/25 01/22/25 23:59 23:59 23:59 Intake Total 1419.25 / 1419.25 940 / 1190 400 / 400 Output Total 2350 / 3250 2200 / 3075 1125 / 1125 Balance -930.75 / -1830.75 -1260 / -1885 -725 / -725 Lab / Micro Data 01/22/25 06:30 01/22/25 06:30 Labs: Laboratory Results - last 24 hr 01/21/25 11:10: POC Glucose 323 H 01/21/25 16:48: POC Glucose 254 H 01/21/25 20:58: POC Glucose 271 H 01/22/25 06:30: WBC 12.8 H, RBC 4.06 L, Hgb 11.1 L, Hct 35.6 L, MCV 87.7, MCH 27.3, MCHC 31.2 L, RDW Std Deviation 51.3 H, RDW Coeff of Vijay 15.9 H, Plt Count 281, MPV 11.1, Immature Gran % (Auto) 0.500, Neut % (Auto) 91.4 H, Lymph % (Auto) 5.7 L, Bacon % (Auto) 2.4, Eos % (Auto) 0.0, Baso % (Auto) 0.0, Absolute Neuts (auto) 11.7 H, Absolute Lymphs (auto) 0.73 L, Nucleated RBC % 0, Sodium 136, Potassium 4.8, Chloride 99, Carbon Dioxide 27.0, Anion Gap 10, BUN 31 H, Creatinine 1.07, Estim Creat Clear Calc 40.54 L, Est GFR (MDRD) Non-Af 52 L, BUN/Creatinine Ratio 29.2 H, Glucose 160 H, Calcium 10.2 01/22/25 08:36: POC Glucose 183 H Micro: Microbiology 01/20/25 01:58 Urine, Catheterized Urine Culture - Final Proteus mirabilis 01/20/25 04:35 Mucosa - Nasopharyngeal Respiratory Panel (PCR) - Final 01/20/25 01:58 Urine Catheter - Serna Legionella Antigen - Final 01/20/25 01:58 Urine Catheter - Serna Streptococcus pneumoniae Antigen (M - Final Physical Exam Const alert, oriented x3, no apparent distress and well nourished Constitutional Narrative: Mild distress noted. General Appearance: cooperative and well developed HEENT normocephalic, head/scalp atraumatic, hearing grossly normal bilaterally, moist oral mucous membranes, oropharynx normal and gingiva normal Eyes PERRL and EOMs intact bilaterally Neck no lymphadenopathy, supple and no JVD Lymph Lymphatic: no lymphadenopathy noted and no lymphedema noted Resp Resp Narrative: mildly diminished breath sounds bibasally, no wheezes or crackles. On room air Cardio regular rate, regular rhythm, S1 normal heart sound, S2 normal heart sound and no murmurs GI normal to inspection, nondistended, normoactive bowel sounds, soft to palpation,non-tender and non-distended GI Narrative: Obese. Extremity normal to inspection, full ROM and no clubbing, cyanosis or edema Extremity Narrative: lower extremities have no edema, hyperpigmented lower extremities, distal pulsespalpable. General Extremity: no tenderness to palpation of joints or extremities Skin General Skin Exam: no breakdown Neuro oriented x3, CN's II-XII intact bilaterally, moves all extremities, no focal motor deficits and no sensory deficits noted Sensorium / Orientation: awake, alert, oriented to person, oriented to place andoriented to time Speech: speech normal Motor Exam: strength 5/5 throughout and general weakness Psych thought process normal, cooperative and affect normal Appearance: appropriate Assessment & Plan Assessment/Plan (1) CHF exacerbation: QUALIFIERS: Heart failure type: systolic Qualified Code(s): I50.23 - Acute on chronic systolic (congestive) heart failure PLAN: Plan #Hypoxia due to right lower lobe pneumonia and acute COPD exacerbation * Was admitted with shortness of breath. CTA of the chest showed no PE but showed evidence of right lower lobe pneumonia * Currently on PO levofloxacin * was transfered to ICU yesterday due to concerns about worsening shortness of breath. She was on airvo but has been weaned down to 2L of oxygen this morning * 2D echo showed EF of 35-40% with moderate hypokinesia of hte left ventricle * breathing treatment with bronchodilators. Titrate oxygen to maintain sats >90% * IV solumedrol. Breathing treatment with bronchodilators. * #Acute exacerbation of HFrEF * Patient's proBNP was 9000 on admission and is now over 21,000. She was started on diuresis with IV Lasix 40 twice daily yesterday. * 2D echo as above which shows EF of 35 to 40% with moderate hypokinesis of the left ventricle. * Continue diuresis with IV Lasix 40 mg twice daily. Last EF per records was from an echo done in 2020 which showed EF of 70% and no evidence of hypokinesia. * fluid restriction to 1500cc daily. * Titrate oxygen to maintain sats >90% * Cardiology on board. Patient started on Entresto and carvedilol as well as jardiance. Cardiology following cardiac catheter when she improves with respiratory standpoint. * #UTI * urine cultures growing Proteus which is sensitive to levofloxacin. * on PO levofloxacin. Will continue, pending speciation * # Benign essential hypertension: * metoprolol and cardizem dc'd. Patient now on PO carvedilol. * IV hydralazine prn #Type 2 diabetes mellitus with neuropathy * On Lantus. Also on sitagliptin and empagliflozin as well as tirzepatide At home. These were held * on ISS. Accuchecks ACHS. * on gabapentin * #History of left sided breast cancer: s/p lumpectomy in 2003. #History of multinodular goiter. stable #Glaucoma: on netarsudil-latanoprost eye drops. #History of neurogenic bladder: stable #GERD: On PPI #DVT prophylaxis: Heparin Disposition: transfer to PCU Charges/Coding Visit Charges Inpatient E&M: 07634 Subs Hosp L2 01/22/25 1242 <Electronically signed by Melba Hartmann MD> Melba Hartmann MD Cosigner Signature (if applicable): CC: ~ Signed ADDENDUM by Dr. Melba Hartmann MD on 01/22/25 at 1400 Addendum 1:30pm Patient's son Sarita Lees Jr called on the phone ([phone]) and updated about his mother's condition. 01/22/25 1400 <Electronically signed by Melba vivas MD> Date _ Melba Hartmann MD Cosigner Signature (if applicable): Date cc: ~* Signed [facility] Work Phone: 1(973) 534-335005-24-2025 Progress note Author [facility]ba [facility] Note Date/Time January 21, 2025 2:07p [facility] Medical Records Department [address] [place] [address] Progress Note 01/21/25 1039 MR#: [id number] Acct: [id number] Name: OLGA DONALDSON Rep #:[id number] : 1945 80 From: Melba Hartmann MD PCP: Dr. Ramone Smiley MD Status:ADM IN Location: ICU ICU03-1 Subjective Subjective Patient seen and examined. She is on 2 L of oxygen. She said she felt much better and felt her breathing had improved. She denied any chest pain, palpitations, dizziness, nausea or vomiting. Review of systems otherwise negative. Objective Data Objective Data Vital Signs: Vital Signs Temp Pulse Resp BP Pulse Ox O2 Del Method O2 Flow Rate 97.8 F 102 H 15 101/78 100 Nasal Cannula 2 01/21/25 08:00 01/21/25 10:00 01/21/25 10:00 01/21/25 10:00 01/21/25 10:00 01/21/25 10:00 01/21/25 10:00 FiO2 25 01/21/25 05:00 Oxygen Flow Rate (L/min) 2 Oxygen Delivery Method Nasal Cannula Weight: 167 lb 12.8 oz Body Mass Index (BMI) 29.7 Intake & Output: Intake and Output for Last 24 Hours 01/19/25 01/20/25 01/21/25 23:59 23:59 23:59 Intake Total 1419.25 / 1419.25 Output Total 2350 / 3250 1225 / 1225 Balance -930.75 / -1830.75 -1225 / -1225 Lab / Micro Data 01/21/25 04:38 01/21/25 04:38 Labs: Laboratory Results - last 24 hr 01/20/25 10:58: Lactic Acid 1.7 01/20/25 11:38: POC Glucose 338 H 01/20/25 14:13: POC Glucose 389 H 01/20/25 16:50: POC Glucose 361 H 01/20/25 21:10: POC Glucose 265 H 01/21/25 04:38: WBC 10.3, RBC 3.94 L, Hgb 10.8 L, Hct 35.0 L, MCV 88.8, MCH 27.4, MCHC 30.9 L, RDW Std Deviation 51.8 H, RDW Coeff of Vijay 16.0 H, Plt Count 245, MPV 11.0, Immature Gran % (Auto) 0.400, Neut % (Auto) 88.4 H, Lymph % (Auto) 7.7 L, Bacon % (Auto) 3.5, Eos % (Auto) 0.0, Baso % (Auto) 0.0, Absolute Neuts (auto) 9.1 H, Absolute Lymphs (auto) 0.79 L, Nucleated RBC % 0, Sodium 138, Potassium 4.0, Chloride 99, Carbon Dioxide 24.3, Anion Gap 14, BUN 23 H, Creatinine 1.19, Estim Creat Clear Calc 36.45 L, Est GFR (MDRD) Non-Af 46 L, BUN/Creatinine Ratio 19.6, Glucose 208 H, Calcium 9.8, [place] [address] H 01/21/25 08:06: POC Glucose 202 H Micro: Microbiology 01/20/25 01:58 Urine, Catheterized Urine Culture - Preliminary Gram negative wes 01/20/25 04:35 Mucosa - Nasopharyngeal Respiratory Panel (PCR) - Final 01/20/25 01:58 Urine Catheter - Serna Legionella Antigen - Final 01/20/25 01:58 Urine Catheter - Serna Streptococcus pneumoniae Antigen (M - Final ABG Data ABG results: ABG 01/20/25 16:54 Specimen Type ART Sample Site R Radial pH 7.38 Bicarbonate Actual 35.5 H Total CO2 37 Base Excess 10 H O2 Saturation 32 L O2 % 30.0 ABG pCO2 59.4 H ABG pO2 21 L* Baron Test Positive Respiration Rate 14 O2 Delivery Device BiPAP Vent Mode ST Tidal Volume 500.0 POC PEEP 8 Crit Call To/Read Back Yes Blood Gas Notified Whom tereletsky Blood Gas Notified Time 16:55:40 Radiography Diagnostic Testing: Radiology Impression Chest CTA 01/20/25 00:09 IMPRESSION: No evidence of filling defect to suggest pulmonary embolism. Very small bilateral pleural effusions and motion at the bases. Small area of consolidation change at the right posterior recess may represent atelectasis with developing pneumonia not excluded. Mild areas of septal thickening in the lower lobes may represent mild interstitial edema. The central airways are patent. Moderate emphysematous change and hyperinflation. Atherosclerotic changes at the thoracic aortic arch and descending thoracic aorta with some areas of soft plaque formation. Three-vessel coronary calcification noted. Cardiomegaly. No pericardial effusion. Reading Location: [id number] Echocardiogram 01/20/25 04:12 Interpretation Summary Mildly dilated left ventricle. The estimated ejection fraction is 35-40 %. There is evidence of diastolic dysfunction. There is moderate global hypokinesis of the left ventricle. Trivial mitral valve insufficiency. Mild aortic stenosis. Trivial aortic valve insufficiency. Ordering Physician: Sandeep Carlton Referring Physician: Ramone Smiley Performed By: Margot Cleary, DALIA, RVT Chest X-Ray 01/21/25 05:55 IMPRESSION: New appearing [id number] ill-defined perihilar opacity at the left upper lobe may represent developing infiltrate or less likely an asymmetric edema pattern. Bilateral medial retrocardiac lower lobe streaky opacities not significantly changed. No pleural effusions identified. Reading Location: [facility] Physical Exam Const alert, oriented x3, no apparent distress and well nourished General Appearance: cooperative and well developed HEENT normocephalic, head/scalp atraumatic, moist oral mucous membranes, oropharynx normal and gingiva normal Eyes PERRL and EOMs intact bilaterally Neck no lymphadenopathy, supple and no JVD Lymph Lymphatic: no lymphadenopathy noted and no lymphedema noted Resp Resp Narrative: mildly diminished breath sounds bibasally, no wheezes or crackles. On room air Cardio regular rate, regular rhythm, S1 normal heart sound, S2 normal heart sound and no murmurs GI normal to inspection, nondistended, normoactive bowel sounds, soft to palpation,non-tender and non-distended Extremity Extremity Narrative: lower extremities have no edema, hyperpigmented lower extremities, distal pulsespalpable. Neuro CN's II-XII intact bilaterally, no focal motor deficits and no sensory deficits noted Motor Exam: strength 5/5 throughout Psych thought process normal, cooperative and affect normal Appearance: appropriate Assessment & Plan Assessment/Plan (1) CHF exacerbation: QUALIFIERS: Heart failure type: unspecified Qualified Code(s): I50.9 - Heart failure, unspecified PLAN: Plan #Hypoxia due to right lower lobe pneumonia and acute COPD exacerbation * Was admitted with shortness of breath. CTA of the chest showed no PE but showed evidence of right lower lobe pneumonia * Currently on IV levofloxacin * was transfered to ICU yesterday due to concerns about worsening shortness of breath. She was on airvo but has been weaned down to 2L of oxygen this morning * 2D echo showed EF of 35-40% with moderate hypokinesia of hte left ventricle * breathing treatment with bronchodilators. Titrate oxygen to maintain sats >90% * IV solumedrol. Breathing treatment with bronchodilators. * #Acute exacerbation of HFrEF * Patient's proBNP was 9000 on admission and is now over 21,000. She was started on diuresis with IV Lasix 40 twice daily yesterday. * 2D echo as above which shows EF of 35 to 40% with moderate hypokinesis of the left ventricle. * Continue diuresis with IV Lasix 40 mg twice daily. Cardiology consulted in light of the reduced EF. Last EF per records was from an echo done in 2020 which showed EF of 70% and no evidence of hypokinesia. * fluid restriction to 1500cc daily. * Titrate oxygen to maintain sats >90% * #UTI * urine cultures growing gram negative rods. * on IV levofloxacin. Will continue, pending speciation * # Benign essential hypertension: * On metoprolol, Cardizem and Lasix. * Blood pressure was running low so blood pressure meds were held. #Type 2 diabetes mellitus with neuropathy * On Lantus. Also on sitagliptin and empagliflozin as well as tirzepatide At home.Thes wre held * on ISS. Accuchecks ACHS. * on gabapentin * #History of left sided breast cancer: s/p lumpectomy in 2003. #History of multinodular goiter. stable #Glaucoma: on netarsudil-latanoprost eye drops. #History of neurogenic bladder: stable #GERD: On PPI #DVT prophylaxis: Heparin Charges/Coding Visit Charges Inpatient E&M: 75207 Subs Hosp L2 01/21/25 0648 <Electronically signed by Melba Hartmann MD> Melba Hartmann MD Cosign Signature (if applicable): CC: ~ Signed [facility] Work Phone: 1(807) 798-232605-24-2025 Radiology Diagnostic study [facility]05-23-2025 Progress note Author Lucio Borden [facility] Note Date/Time January 20, 2025 4:58p m [facility] Medical Records Department [address] [facility] [place] [address] Progress Note - Hospitalist 01/20/25 1657 MR#: [id number] Acct: [id number] Name: OLGA DONALDSON Rep #:[id number] : 1945 80 From: Lucio Borden DO PCP: Dr. Ramone Smiley MD Status:ADM IN Location: [place] [address] Hospitalist Note Patient continues to have respiratory distress on PCU, she is intolerant of BiPAP-she acts very anxious. I have ordered an arterial blood gas on the patient and for closer monitoring I have decided to move her to the ICU at this time. Patient is a full code and would want intubated if necessary. 01/20/25 165 <Electronically signed by Lucio Borden DO> Cosigner Signature (if applicable): CC: ~ Signed [facility] Work Phone: 1([phone]) 328-973305-23-2025 Progress note Author [facility]io [facility] Note Date/Time January 20, 2025 11:20 am [facility] Medical Records Department [address] [place] [address] Progress Note - Hospitalist 01/20/25 1119 MR#: [id number] Acct: [id number] Name: OLGA DONALDSON Rep #:[id number] : 1945 80 From: Lucio Borden DO PCP: Dr. Ramone Smiley MD Status:ADM IN Location: [place] [address] Hospitalist Note Patient was seen and examined today, made the decision to change the patient to Airvo, patient was admitted for suspected right lower lobe pneumonia and exacerbation of COPD, she remained on aerosol treatments, IV Solu-Medrol, and IVlevofloxacin. 01/20/25 1120 <Electronically signed by Lucio Borden DO> Cosigner Signature (if applicable): CC: ~ Signed [facility] Work Phone: 1(527) 705-713605-23-2025 History and physical note Author Sandeep Marie [facility] Note Date/Time January 20, 2025 6:06a m [facility] Medical Records Department [address] [place] [address] H&P Exam - Hospitalist 01/20/25 0241 MR#: [id number] Acct: [id number] Name: OLGA DONALDSON Rep #:[id number] : 1945 80 From: Sandeep Dukes DO PCP: Dr. Ramone Smiley MD Status:ADM IN Location: [id number] [facility] General Date of Admission: 01/20/25 Date of Service: 01/20/25 Chief Complaint: SOB. HPI Narrative OLGA DONALDSON, is a 80 F with a past medical history of essential hypertension; on metoprolol twice daily, diltiazem and furosemide, hyperlipidemia; on pravastatin, obesity; with a BMI of 32.2 this admission, DM-2; of unknown control on sitagliptin, empagliflozin, tirzepatide, insulin glargine 20 units SQ twice daily and insulin lispro 10 units AC, diabetic neuropathy; on gabapentin nightly, history of diabetic retinopathy; s/p laser surgery on the Left eye (2005), history of tobacco abuse; with subsequent asthma/COPD on roflumilast, budesonide BID and ipratropium bromide, CAD; on babyaspirin daily, history of aortic stenosis, history of DVT/PE; currently not on anticoagulation, PAD, CKD; stage IIIa, chronic microcytic anemia, history of Left-sided breast cancer; s/p lumpectomy (2003), history of multinodular nontoxic goiter, glaucoma; on netarsudil-latanoprost OU daily, history of neurogenic bladder, history of UTI, history of colon polyp found to be tubular adenoma; s/p snare (2017), history of depression with anxiety; currently not on treatment, chronic constipation; on psyllium husk, GERD; on pantoprazole and OA;s/p Left THR along with foraminal stenosis of lumbar region who presents to [facility] ER complaining of shortness of breath. Ms. Donaldson reports her symptoms began approximately 5 days prior to admission with dyspnea on exertion worse than her baseline in spite of recently completinga course of steroids and antibiotics with patient evaluated in the ER here with ER physicians exam at that time revealing lungs clear to auscultation with no rales, wheezes or rhonchi and patient saturating at 98% on room air but with an elevated NT pro- BNP II of 4,224 pg/mL present on admission consistent with AE CHF along with a mildly elevated troponin T of 46 ng/L x 2 with CXR that revealed cardiomegaly with mild congestion and she was subsequently treated withfurosemide in house and then discharged on furosemide 40 mg PO daily who now returns complaining of worsening shortness of breath. She states her dyspnea onexertion progressed to shortness of breath at rest on the evening of January 19, 2025 causing her to activate EMS. Squad noted patient was diaphoretic, hypoxic at ~69% on RA with tachypnea and only being able to speak in one-word sentences causing her to be placed on BiPAP. Patient affirms to the ER physician that shetook her furosemide as prescribed. In the ER she was noted to have a CTA of thechest with IV contrast that revealed no evidence of filling defect to suggest pulmonary embolism with very small bilateral pleural effusions and motion at thebases with a small area of consolidation of the right posterior recess which mayrepresent atelectasis with developing pneumonia not excluded in addition to mildareas of septal thickening in the lower lobes that may represent interstitial edema with moderate emphysematous change and hyperinflation along with atherosclerotic changes at the thoracic aortic arch and descending thoracic aorta with some areas of soft plaque formation in addition to three- vessel coronary calcification with cardiomegaly and no pericardial effusion with patient subsequently diagnosed with clinical evidence of AE COPD with suspected early RLL Pneumonia and Leukocytosis of 14.4K with Lactic Acidosis of 3.4 mmol/Lpresent on admission all combining to cause Acute Hypoxic and Hypercapnic Respiratory Failure evidenced by ABG pH 7.31/ pCO2 63 mmHg/ PaO2 83 mmHg/ HCO3 31.6 mmol/L at 95% on BiPAP at a rate of 14 with 100% FiO2 in addition to elevated initial troponin T of 52 ng/L increasing to 71 ng/L on second check dueto suspected Acute Cardiac Strain and she was then admitted to the PCU for ongoing care for a stay that is expected to extend beyond 2 midnights. [facility] Medical History Fracture of hip, left, closed Coronary artery disease Paronychia of left index finger Vaginal cyst Anxiety Depression Irregular heart beat Multiple thyroid nodules Foraminal stenosis of lumbar region Lumbar spinal stenosis Diabetic retinopathy Colon polyp Thyroid goiter Hyperlipidemia Hypokalemia Microcytic anemia Neurogenic bladder Hypophosphatemia Hypercalcemia Former smoker UTI (urinary tract infection) Iron deficiency anemia Aortic stenosis Hyponatremia Urine retention Chronic renal failure, stage 3 (moderate) Cellulitis and abscess of finger, unspecified Retinopathy Peripheral artery disease Leg weakness, bilateral GERD (gastroesophageal reflux disease) Chronic idiopathic constipation COPD (chronic obstructive pulmonary disease) Polypharmacy Hypertension Carpal tunnel syndrome of right wrist Strain of right rotator cuff capsule Rhinitis Urinary retention with incomplete bladder emptying Vitamin D deficiency Asthma Pruritus Goiter, nontoxic, multinodular Anemia Diabetes Hx of venous thrombosis and embolism History of malignant neoplasm of breast Type 2 diabetes mellitus Home Medications ?Medication ?Instructions ?Recorded ?Last Taken ?Type aspirin 81 mg chewable tablet 81 mg PO DAILY HERT HEAL TH 01/21/16 01/15/25 History magnesium oxide 400 mg (241.3 mg 400 mg PO BID SUPPLEM ENT 08/16/18 01/15/25 History magnesium) tablet metoprolol tartrate 25 mg tablet 25 mg PO BID BLOOD [place] ESSURE 08/16/18 01/15/25 History pantoprazole 40 mg tablet,delayed 40 mg PO DAILY ACID REFLUX 12/02/19 01/15/25 History release empagliflozin 10 mg tablet 10 mg PO DAILY DIABETES 01/15/25 History (Jardiance) sitagliptin phosphate 50 mg tablet 50 mg PO DAILY DIAB ETES 10/18/20 01/15/25 History (Januvia) multivitamin 1 tab PO DAILY VITAMIN 12/0601/15/25 History pravastatin 20 mg tablet 20 mg PO DAILY CHOLESTEROL 0 12/06/21 01/15/25 History ascorbic acid (vitamin C) 250 mg 250 mg PO DAILY SUPPL EMENT 08/13/23 01/15/25 History tablet (Vitamin C) gabapentin 100 mg capsule 100 mg PO QHS NERVE PAIN 01/14/25 History roflumilast 500 mcg tablet 500 mcg PO DAILY COPD 08/1301/15/25 History insulin lispro 100 unit/mL 10 unit subcut TIDAC short acting 12/30/23 01/15/25 History subcutaneous pen (Humalog KwikPen insulin (U-100) Insulin) budesonide 160 mcg-glycopyr 9 2 inh inhalation BID 06/2401/15/25 History mcg-formot 4.8 mcg/actuation HFA inhaler (Breztri Aerosphere) diltiazem HCl 180 mg 180 mg PO DAILY 01/07/25 History capsule,extended release 24 hr, controlled insulin glargine 100 unit/mL (3 20 unit subcut BID 06/2401/15/25 History mL) subcutaneous pen (Lantus Solostar U-100 Insulin) ipratropium bromide 21 mcg (0.03 1 - 2 spray intranasa l Q6H PRN 01/07/25 Unknown History %) nasal spray allergy symptoms lancets 28 gauge (TRUEplus Lancets) 01/07/25 Unknown History acetaminophen 500 mg tablet 1,000 mg PO Q6H PRN Pain S core 1-3 01/15/25 Unknown History azelastine 137 mcg (0.1 %) nasal 1 - 2 spray intranasa l BID 01/15/25 01/15/25 History spray furosemide 40 mg tablet (Lasix) 40 mg PO DAILY #5 tabs 01/15/25 Unknown Rx mecobalamin (vitamin B12) 1,000 1,000 mcg PO DAILY 01/15/25 History mcg chewable tablet (B12 Active) menthol 0.44 %-zinc oxide 20.6 % 1 applic topical 4X/D AY PRN skin 01/15/25 Unknown History topical ointment (CalaSoothe) irritation netarsudil 0.02 %-latanoprost 1 drp EACH EYE DAILY 01/15/25 History 0.005 % eye drops (Rocklatan) potassium chloride 20 mEq oral 20 meq PO BID #30 ea Unknown Rx packet psyllium husk 0.4 gram capsule 0.4 g PO DAILY 01/15/25 01/15/25 History (Daily Fiber) tirzepatide 5 mg/0.5 mL 5 mg subcut QWEEK 01/15/25 U nknown History subcutaneous pen injector (Fitzuntrisharo) Allergy/AdvReac Type Severity Reaction Status Date / Time adhesive tape (tape) Allergy NEEDS Verified 01/20/25 00:04 FOLLOW-UP amoxicillin Allergy YEAST Verified 01/20/25 00:04 INFECTION cephalexin monohydrate (From Allergy Rash Verified 01/20/25 00:04 Keflex) clopidogrel bisulfate (From Allergy Other Verified 01/20/25 00:04 Plavix) Family History Daughter Breast cancer Father Hypertension Sister Cancer Kidney disease Mother Pancreatic cancer Surgical History History of left hip hemiarthroplasty S/P fine needle aspiration (~10/2020) H/O dilation and curettage (~07/10/20) History of Achilles tendon repair Retinopathy History of lumpectomy of left breast Social History household members: spouse Smoking Status: Former smoker alcohol intake: never substance use type: does not use caffeine: Yes what type of physical activity do you participate in: none seatbelt use: always do you feel safe at home: Yes additional social history: [employer]- retired ROS ROS Narrative Full review of systems was not possible at this time due to patient's respiratory distress on BiPAP. Vital Signs Vital Signs Vital Signs: 01/19/25 23:58 01/19/25 23:59 01/20/25 00:05 Temperature 97.1 F L Temperature Source Axillary Pulse Rate 68 Respiratory Rate 30 H Respiratory Effort Labored Accessory Muscle Use Respiratory Pattern Blood Pressure 138/96 H Blood Pressure Mean 110 Pulse Ox 70 100 Oxygen Delivery Method Bi-pap Room Air Oxygen Flow Rate (L/min) Fraction of Inspired Oxygen (FIO2) 01/20/25 00:07 01/20/25 00:12 01/20/25 00:12 Temperature Temperature Source Pulse Rate 148 H 151 H Respiratory Rate 38 H 36 H Respiratory Effort Respiratory Pattern Tachypnea Blood Pressure Blood Pressure Mean Pulse Ox 100 100 100 Oxygen Delivery Method Bi-pap Oxygen Flow Rate (L/min) 60 Fraction of Inspired Oxygen (FIO2) 100 01/20/25 00:14 01/20/25 00:15 01/20/25 00:26 Temperature Temperature Source Pulse Rate 128 H 111 H Respiratory Rate 26 H 22 H Respiratory Effort Respiratory Pattern Tachypnea Blood Pressure Blood Pressure Mean Pulse Ox 100 Oxygen Delivery Method Bi-pap Oxygen Flow Rate (L/min) 60 Fraction of Inspired Oxygen (FIO2) 01/20/25 00:30 01/20/25 00:45 01/20/25 01:00 Temperature Temperature Source Pulse Rate 123 H 107 H 110 H Respiratory Rate 34 H 23 H 19 H Respiratory Effort Respiratory Pattern Blood Pressure 120/60 Blood Pressure Mean 80 Pulse Ox 99 97 100 Oxygen Delivery Method Nasal Cannula Oxygen Flow Rate (L/min) 3 Fraction of Inspired Oxygen (FIO2) 01/20/25 01:00 01/20/25 01:03 01/20/25 01:15 Temperature 97.9 F Temperature Source Temporal Pulse Rate 107 H 106 H 104 H Respiratory Rate 17 22 H 24 H Respiratory Effort Respiratory Pattern Blood Pressure 120/60 Blood Pressure Mean 80 Pulse Ox 98 97 98 Oxygen Delivery Method Nasal Cannula Oxygen Flow Rate (L/min) 3 Fraction of Inspired Oxygen (FIO2) 01/20/25 01:18 01/20/25 01:25 01/20/25 01:31 Temperature Temperature Source Pulse Rate 102 H 115 H Respiratory Rate 18 26 H Respiratory Effort Respiratory Pattern Blood Pressure 120/60 Blood Pressure Mean 78 Pulse Ox 98 98 100 Oxygen Delivery Method Nasal Cannula Oxygen Flow Rate (L/min) 3 Fraction of Inspired Oxygen (FIO2) 01/20/25 01:45 01/20/25 02:00 01/20/25 02:00 Temperature 98.0 F Temperature Source Temporal Pulse Rate 112 H 111 H 112 H Respiratory Rate 24 H 28 H 24 H Respiratory Effort Respiratory Pattern Blood Pressure 139/80 H Blood Pressure Mean 99 Pulse Ox 99 98 100 Oxygen Delivery Method Nasal Cannula Oxygen Flow Rate (L/min) 3 Fraction of Inspired Oxygen (FIO2) Weight Weight: 176 lb 2.389 oz Body Mass Index (BMI) 32.2 Physical Exam Const alert and oriented x3 Constitutional Narrative: Mild distress noted. General Appearance: cooperative HEENT normocephalic, head/scalp atraumatic, hearing grossly normal bilaterally and moist oral mucous membranes Eyes PERRL and EOMs intact bilaterally Neck no lymphadenopathy and supple Resp Resp Narrative: Diminished breath sounds throughout. Cardio regular rate and regular rhythm Cardio Narrative: Tachycardia at ~112 bpm noted. GI normal to inspection, nondistended, normoactive bowel sounds, soft to palpation,non-tender and non-distended GI Narrative: Obese. Extremity normal to inspection, full ROM and no clubbing, cyanosis or edema Skin Skin Narrative: Patient has evidence of rash, abscess, wounds or jaundice. Neuro oriented x3, CN's II-XII intact bilaterally, moves all extremities and no focal motor deficits Sensorium / Orientation: awake, alert, oriented to person, oriented to place andoriented to time Speech: speech normal Psych affect normal Results Medical Records Data Attestation: I reviewed the patient's medical records Lab / Micro Data Attestation: I reviewed the patient's lab results. 01/20/25 00:05 01/20/25 00:05 Labs: Laboratory Results - last 24 hr 01/20/25 00:05: WBC 14.4 H, RBC 4.41, Hgb 12.1, Hct 39.6, MCV 89.8, MCH 27.4, MCHC 30.6 L, RDW Std Deviation 52.7 H, RDW Coeff of Vijay 16.0 H, Plt Count 287, MPV 12.0, Immature Gran % (Auto) 0.500, Neut % (Auto) 58.4, Lymph % (Auto) 32.0,Bacon % (Auto) 7.7, Eos % (Auto) 0.8, Baso % (Auto) 0.6, Absolute Neuts (auto) 8.4 H, Absolute Lymphs (auto) 4.62 H, Nucleated RBC % 0, PT 14.6, INR 1.1, APTT 26.9, Sodium 137, Potassium 4.0, Chloride 97 L, Carbon Dioxide 25.7, Anion Gap 15, BUN 10, Creatinine 1.24 H, Estim Creat Clear Calc 34.84 L, Est GFR (MDRD) Non-Af 44 L, BUN/Creatinine Ratio 8.1 L, Glucose 347 H, Lactic Acid 3.4 H*, Calcium 10.2, Total Bilirubin 0.26, AST 81 H, ALT 36 H, Alkaline Phosphatase 143H, Troponin T High Sens 52 H D, Total Protein 7.6, Albumin 3.6, Globulin 4.1, Albumin/Globulin Ratio 0.9 01/20/25 01:58: Urine Color Straw, Urine Clarity Clear, Urine pH 6.0, Ur Specific Randolph 1.010, Urine Protein 100 H, Urine Glucose (UA) 1000 H, Urine Ketones Negative, Urine Occult Blood 50 H, Urine Nitrite Negative, Urine Bilirubin Negative, Urine Urobilinogen Normal, Ur Leukocyte Esterase Negative 01/20/25 02:10: Troponin T Hi Sens 2 Hr 71 H* ABG Data ABG results: ABG 01/20/25 00:19 Specimen Type ART Sample Site R Radial pH 7.31 L Bicarbonate Actual 31.6 H Total CO2 34 Base Excess 5 H O2 Saturation 95 O2 % 100.0 ABG pCO2 63.0 H ABG pO2 83 Baron Test Positive O2 Delivery Device BiPAP Vent Mode Not entered Clinical Comments Imaging Radiology Impression Chest CTA 01/20/25 00:09 IMPRESSION: No evidence of filling defect to suggest pulmonary embolism. Very small bilateral pleural effusions and motion at the bases. Small area of consolidation change at the right posterior recess may represent atelectasis with developing pneumonia not excluded. Mild areas of septal thickening in the lower lobes may represent mild interstitial edema. The central airways are patent. Moderate emphysematous change and hyperinflation. Atherosclerotic changes at the thoracic aortic arch and descending thoracic aorta with some areas of soft plaque formation. Three-vessel coronary calcification noted. Cardiomegaly. No pericardial effusion. Reading Location: [facility] Assessment & Plan Assessment/Plan (1) Pneumonia: QUALIFIERS: Laterality: right Lung location: lower lobe of lung Pneumonia type: due to unspecified organism Qualified Code(s): J18.9 - Pneumonia, unspecified organism (2) COPD exacerbation: (3) Leukocytosis: QUALIFIERS: Leukocytosis type: unspecified Qualified Code(s): D72.829 - Elevated white blood cell count, unspecified (4) Lactic acidosis: (5) CHF exacerbation: QUALIFIERS: Heart failure type: unspecified Qualified Code(s): I50.9 - Heart failure, unspecified (6) Acute hypoxic on chronic hypercapnic respiratory failure: (7) Elevated troponin: (8) Obesity (BMI 30.0-34.9): PLAN: Plan 1. Suspected RLL Pneumonia on CTA of chest with IV contrast this admission withLeukocytosis of 14.4K with Lactic Acidosis of 3.4 mmol/L present on admission concerning for possible early Sepsis - Admit to PCU. Continue IV levofloxacin begun in the ER and await culture and sensitivity data. Avoid fluid bolus with sepsis protocol due to #3. Check urinary antigens to Streptococcus pneumonia and Legionella. Give scheduled guaifenesin twice daily. Give acetaminophen as needed for [id number] (level 1-5/10) pain or fever. Give morphine IV prn for severe (level 6-10/10) pain. 2. AE asthma/COPD attributable to #1 - Maintain methylprednisolone 60 mg IV twice daily. Give scheduled and as needed nebulizers. 3. AE CHF; of uncertain type with elevated NT pro-BNP II of 9,499 pg/mL complicating #1 & #2 - Give furosemide IV daily and check NT pro-BNP II daily tofollow trend. 4. Acute Hypoxic and Hypercapnic Respiratory Failure evidenced by ABG pH 7.31/ pCO2 63 mmHg/ PaO2 83 mmHg/ HCO3 31.6 mmol/L at 95% on BiPAP at a rate of 14 with 100% FiO2 due to #1 - #3 - Wean BiPAP as tolerated. 4. Elevated initial troponin T of 52 ng/L increasing to 71 ng/L on second checkdue to suspected Acute Cardiac Strain arising from #1 - #3 in the setting of known CAD - Continue BASA. Check echocardiogram to evaluate LVEF. 5. Recent evaluation here in the ER on January 15, 2025 with dyspnea on exertion worse than her baseline in spite of recently completing a course of steroids andantibiotics with patient evaluated in the ER here with ER physicians exam at that time revealing lungs clear to auscultation with no rales, wheezes or rhonchi and patient saturating at 98% on room air but with an elevated NT pro-BNP II of 4,224 pg/mL present on admission consistent with AE CHF along with a mildly elevated troponin T of 46 ng/L x 2 with CXR that revealed cardiomegaly with mild congestion and she was subsequently treated with furosemide in house and then discharged on furosemide 40 mg PO daily - Noted with repeat NT pro-BNP II pending at this time. 6. Obesity; with a BMI of 32.2 this admission adding to the burden of disease outlined from #1 - #5 - Weight loss will be recommended. Check TSH. This complicates her case and may hamper recovery. 7. Essential hypertension; on metoprolol twice daily, diltiazem and furosemide - Hold scheduled antihypertensives in light of blood pressure of 105/88 mmHg noted shortly after admission with possible sepsis outlined in #1. 8. Hyperlipidemia; on pravastatin - Resume statin and check lipid profile. 9. DM-2; of unknown control on sitagliptin, empagliflozin, tirzepatide, insulinglargine 20 units SQ twice daily and insulin lispro 10 units AC - Keep NPO for now. Check FSBS q. 6 hours plus SSI. Check HgbA1c to objectively evaluate quality of diabetic control. 10. Diabetic neuropathy; on gabapentin nightly - Continue gabapentin as previous. 11. History of diabetic retinopathy; s/p laser surgery on the Left eye (2005) - Noted. 12. History of aortic stenosis - Echocardiogram pending this admission for #4. 13. History of DVT/PE; currently not on anticoagulation - Noted with no evidence of recurrence at this time. 14. PAD - Stable. 15. CKD; stage IIIa - Renal function slightly worse than normal with serum creatinine of 1.24 mg/dL and BUN of 10 mg/dL with eGFR of 44 mL/min this admission. 16. Chronic microcytic anemia - Stable with hemoglobin of 12.1 g/dL and MCV of 89.8 fL present on admission. 17. History of Left-sided breast cancer; s/p lumpectomy (2003) - Noted with no signs of recurrence. 18. History of multinodular nontoxic goiter - Noted. Check TSH. 19. Glaucoma; on netarsudil-latanoprost OU daily - Current therapy to continue as before. 20. History of neurogenic bladder - Stable. 21. History of UTI - Noted UA negative for infection this admission. 22. History of colon polyp found to be tubular adenoma; s/p snare (2017) - Noted. 23. History of depression with anxiety; currently not on treatment - Stable. 24. Chronic constipation; on psyllium husk - Maintain current regimen. 25. GERD; on pantoprazole - Resume PPI. 26. OA; s/p Left THR along with foraminal stenosis of lumbar region - Stable. Give acetaminophen as outlined #1. 27. DVT prophylaxis - Heparin 5,000U sq BID plus SCD's. Total time: Approximately (but not less than) 75 minutes. Sepsis Attestation Sepsis Attestation: Sepsis Ruled Out Date exam was performed: 01/20/25 Time exam was performed: 03:35 Possible Source of Sepsis: Pulmonary Sepsis Organ Dysfunction Criteria Present: Acute Respiratory Failure (New need for BiPAP/CPAP or MV) and Lactic Acid > 2 mmol/L Fluid Resuscitation Fluid resuscitation indicated?: Yes Fluid Resuscitation ordered: Lesser volume fluid bolus ordered Amount of fluid ordered: 1 Reason for lesser fluid bolus:: Concern for fluid overload and Heart failure Sepsis Note Date exam was performed: 01/20/25 Time exam was performed: 07:00 Sepsis Attestation: Sepsis re-evaluation was performed Response to fluids: Fluid responsive hypotension Charges/Coding Visit Charges Inpatient E&M: 64259 Init Hosp L3 01/20/25 0606 <Electronically signed by Sandeep Carlton DO> Cosigner Signature (if applicable): CC: Dr. Sandeep Carlton DO; Dr. Ramone Smiley MD~ Signed [facility] Work Phone: 1(313) 609-881205-23-2025 Evaluation note* Diagnosis Onset Date Resolution Status Admit Date Acute hypoxemic respiratory failure acute January 20, 2025 3 :32am Acute hypoxic on chronic hypercapnic respiratory failure acute January 20, 2025 3:32am Elevated troponin acute December 3:32am Lactic acidosis acute January 20, 2025 3:32am Leukocytosis acute January 20 3:32am Obesity (BMI 30.0-34.9) acute M 2024 3:32am Pneumonia acute January 20, 2025 3:32am Aortic stenosis chronic January 20, 2025 3:32am CHF exacerbation chronic December 3:32am COPD exacerbation chronic December 3:32am Coronary artery disease chronic 2024 3:32am Hypertension chronic January 20 3:32am [facility] Work Phone: 1(331) 892-364105-23-2025 Discharge summary Author Jeevan Yoder [facility] Note Date/Time January 20, 2025 2:43a [facility] Medical Records Department [address] [place] [address] Emergency Department Summary 01/20/25 MR#: [id number] Acct: [id number] Name: OLAG DONALDSON Rep #:[id number] : 1945 80 From: Jeevan Yoder DO PCP: Dr. Ramone Smiley MD Status:REG ER Location: ED ADDENDUM by Dr. Jeevan Yoder DO on 01/20/25 at 0243 Did discuss case with hospitalist Dr. Benito who accept patient for admission. Patient was notified is agreeable to plan all course concerns answered. 01/20/25 0243<Electronically signed by Jeevan Yoder DO> Cosigner Signature (if applicable): cc: Dr. Ramone Smiley MD ~* Signed HPI History of Present Illness Chief Complaint: Shortness of Breath Narrative Narrative: Patient is a 80-year-old female past medical history of COPD, CAD, diet, depression, microcytic anemia, chronic kidney disease stage III who presented tot emergency department via EMS with a chief complaint of shortness of breath. Per EMS the patient was noted hypoxic and quite a shortness of breath therefore she was given a DuoNeb and route. When patient arrived she was diaphoretic and hypoxic to 69% on room air with tachypnea therefore she was placed on BiPAP. Patient states that she did take the oral Lasix that I gave her when she was just here recently. States that she has had progressive worsening shortness of breath. [facility] Medical History Fracture of hip, left, closed Coronary artery disease Paronychia of left index finger Vaginal cyst Anxiety Depression Irregular heart beat Multiple thyroid nodules Foraminal stenosis of lumbar region Lumbar spinal stenosis Diabetic retinopathy Colon polyp Thyroid goiter Hyperlipidemia Hypokalemia Microcytic anemia Neurogenic bladder Hypophosphatemia Hypercalcemia Former smoker UTI (urinary tract infection) Iron deficiency anemia Aortic stenosis Hyponatremia Urine retention Chronic renal failure, stage 3 (moderate) Cellulitis and abscess of finger, unspecified Retinopathy Peripheral artery disease Leg weakness, bilateral GERD (gastroesophageal reflux disease) Chronic idiopathic constipation COPD (chronic obstructive pulmonary disease) Polypharmacy Hypertension Carpal tunnel syndrome of right wrist Strain of right rotator cuff capsule Rhinitis Urinary retention with incomplete bladder emptying Vitamin D deficiency Asthma Pruritus Goiter, nontoxic, multinodular Anemia Diabetes Hx of venous thrombosis and embolism History of malignant neoplasm of breast Type 2 diabetes mellitus Home Medications ?Medication ?Instructions ?Recorded ?Last Taken ?Type aspirin 81 mg chewable tablet 81 mg PO DAILY HERT HEAL TH 01/21/16 01/15/25 History magnesium oxide 400 mg (241.3 mg 400 mg PO BID SUPPLEM ENT 08/16/18 01/15/25 History magnesium) tablet metoprolol tartrate 25 mg tablet 25 mg PO BID BLOOD [place] ESSURE 08/16/18 01/15/25 History pantoprazole 40 mg tablet,delayed 40 mg PO DAILY ACID REFLUX 12/02/19 01/15/25 History release empagliflozin 10 mg tablet 10 mg PO DAILY DIABETES 01/15/25 History (Jardiance) sitagliptin phosphate 50 mg tablet 50 mg PO DAILY DIAB ETES 10/18/20 01/15/25 History (Januvia) multivitamin 1 tab PO DAILY VITAMIN 12/0601/15/25 History pravastatin 20 mg tablet 20 mg PO DAILY CHOLESTEROL 0 12/06/21 01/15/25 History ascorbic acid (vitamin C) 250 mg 250 mg PO DAILY SUPPL EMENT 08/13/23 01/15/25 History tablet (Vitamin C) gabapentin 100 mg capsule 100 mg PO QHS NERVE PAIN 01/14/25 History roflumilast 500 mcg tablet 500 mcg PO DAILY COPD 08/1301/15/25 History insulin lispro 100 unit/mL 10 unit subcut TIDAC short acting 12/30/23 01/15/25 History subcutaneous pen (Humalog KwikPen insulin (U-100) Insulin) budesonide 160 mcg-glycopyr 9 2 inh inhalation BID 06/2401/15/25 History mcg-formot 4.8 mcg/actuation HFA inhaler (Breztri Aerosphere) diltiazem HCl 180 mg 180 mg PO DAILY 01/07/25 History capsule,extended release 24 hr, controlled insulin glargine 100 unit/mL (3 20 unit subcut BID 06/2401/15/25 History mL) subcutaneous pen (Lantus Solostar U-100 Insulin) ipratropium bromide 21 mcg (0.03 1 - 2 spray intranasa l Q6H PRN 01/07/25 Unknown History %) nasal spray allergy symptoms lancets 28 gauge (TRUEplus Lancets) 01/07/25 Unknown History acetaminophen 500 mg tablet 1,000 mg PO Q6H PRN Pain S core 1-3 01/15/25 Unknown History azelastine 137 mcg (0.1 %) nasal 1 - 2 spray intranasa l BID 01/15/25 01/15/25 History spray furosemide 40 mg tablet (Lasix) 40 mg PO DAILY #5 tabs 01/15/25 Unknown Rx mecobalamin (vitamin B12) 1,000 1,000 mcg PO DAILY 01/15/25 History mcg chewable tablet (B12 Active) menthol 0.44 %-zinc oxide 20.6 % 1 applic topical 4X/D AY PRN skin 01/15/25 Unknown History topical ointment (CalaSoothe) irritation netarsudil 0.02 %-latanoprost 1 drp EACH EYE DAILY 01/15/25 History 0.005 % eye drops (Rocklatan) potassium chloride 20 mEq oral 20 meq PO BID #30 ea Unknown Rx packet psyllium husk 0.4 gram capsule 0.4 g PO DAILY 01/15/25 01/15/25 History (Daily Fiber) tirzepatide 5 mg/0.5 mL 5 mg subcut QWEEK 01/15/25 U nknown History subcutaneous pen injector (Mounjaro) Allergy/AdvReac Type Severity Reaction Status Date / Time adhesive tape (tape) Allergy NEEDS Verified 01/20/25 00:04 FOLLOW-UP amoxicillin Allergy YEAST Verified 01/20/25 00:04 INFECTION cephalexin monohydrate (From Allergy Rash Verified 01/20/25 00:04 Keflex) clopidogrel bisulfate (From Allergy Other Verified 01/20/25 00:04 Plavix) Family History Daughter Breast cancer Father Hypertension Sister Cancer Kidney disease Mother Pancreatic cancer Surgical History History of left hip hemiarthroplasty S/P fine needle aspiration (~10/2020) H/O dilation and curettage (~07/10/20) History of Achilles tendon repair Retinopathy History of lumpectomy of left breast Social History household members: spouse Smoking Status: Former smoker alcohol intake: never substance use type: does not use caffeine: Yes what type of physical activity do you participate in: none seatbelt use: always do you feel safe at home: Yes additional social history: [employer]- retired ROS ROS ED ROS Narrative Review of systems unobtainable from the patient secondary to her tachypnea shortness of breath and answered and 1 word sentences therefore acute care caveat applies EXAM Physical Exam Narrative Exam Narrative: General: Patient lying in bed did appear to be short of breath Head: Atraumatic, normocephalic Eyes: PERRL bilaterally, EOMI bilaterally, no conjunctival injection noted Neck: Soft, supple, trachea midline Cardiovascular: Patient tachycardic with a regular rhythm Respiratory: Diminished breath sounds bilaterally Abdomen: Soft, nondistended, nontender to palpation Extremities: +4/5 strength noted in the bilateral upper and lower extremities, radial pulses +2/4 in the bilateral extremities Neurological: Patient following commands knew that she was in the hospital Skin: Warm, dry, intact no rashes or lesions noted Const Vital Signs: 01/19/25 23:58 01/19/25 23:59 01/20/25 00:05 Temperature 97.1 F L Temperature Source Axillary Pulse Rate 68 Respiratory Rate 30 H Respiratory Effort Labored Accessory Muscle Use Respiratory Pattern Blood Pressure 138/96 H Blood Pressure Mean 110 Pulse Ox 70 100 Oxygen Delivery Method Bi-pap Room Air Oxygen Flow Rate (L/min) Fraction of Inspired Oxygen (FIO2) 01/20/25 00:07 01/20/25 00:12 01/20/25 00:12 Temperature Temperature Source Pulse Rate 148 H 151 H Respiratory Rate 38 H 36 H Respiratory Effort Respiratory Pattern Tachypnea Blood Pressure Blood Pressure Mean Pulse Ox 100 100 100 Oxygen Delivery Method Bi-pap Oxygen Flow Rate (L/min) 60 Fraction of Inspired Oxygen (FIO2) 100 01/20/25 00:14 01/20/25 00:15 01/20/25 00:26 Temperature Temperature Source Pulse Rate 128 H 111 H Respiratory Rate 26 H 22 H Respiratory Effort Respiratory Pattern Tachypnea Blood Pressure Blood Pressure Mean Pulse Ox 100 Oxygen Delivery Method Bi-pap Oxygen Flow Rate (L/min) 60 Fraction of Inspired Oxygen (FIO2) 01/20/25 00:30 01/20/25 00:45 01/20/25 01:00 Temperature Temperature Source Pulse Rate 123 H 107 H 110 H Respiratory Rate 34 H 23 H 19 H Respiratory Effort Respiratory Pattern Blood Pressure 120/60 Blood Pressure Mean 80 Pulse Ox 99 97 100 Oxygen Delivery Method Nasal Cannula Oxygen Flow Rate (L/min) 3 Fraction of Inspired Oxygen (FIO2) 01/20/25 01:00 01/20/25 01:03 01/20/25 01:15 Temperature 97.9 F Temperature Source Temporal Pulse Rate 107 H 106 H 104 H Respiratory Rate 17 22 H 24 H Respiratory Effort Respiratory Pattern Blood Pressure 120/60 Blood Pressure Mean 80 Pulse Ox 98 97 98 Oxygen Delivery Method Nasal Cannula Oxygen Flow Rate (L/min) 3 Fraction of Inspired Oxygen (FIO2) 01/20/25 01:18 01/20/25 01:25 01/20/25 01:31 Temperature Temperature Source Pulse Rate 102 H 115 H Respiratory Rate 18 26 H Respiratory Effort Respiratory Pattern Blood Pressure 120/60 Blood Pressure Mean 78 Pulse Ox 98 98 100 Oxygen Delivery Method Nasal Cannula Oxygen Flow Rate (L/min) 3 Fraction of Inspired Oxygen (FIO2) 01/20/25 01:45 01/20/25 02:00 01/20/25 02:00 Temperature 98.0 F Temperature Source Temporal Pulse Rate 112 H 111 H 112 H Respiratory Rate 24 H 28 H 24 H Respiratory Effort Respiratory Pattern Blood Pressure 139/80 H Blood Pressure Mean 99 Pulse Ox 99 98 100 Oxygen Delivery Method Nasal Cannula Oxygen Flow Rate (L/min) 3 Fraction of Inspired Oxygen (FIO2) MDM MDM MDM Narrative Medical decision making narrative: Patient is a 80-year-old female who came into the emergency department with respiratory distress. On the differential diagnose includes Melamin to COPD exacerbation, pneumonia, pneumothorax, ACS, PE. Once workup is obtained and reviewed she will be reevaluated. Patient will be given 2 more DuoNebs and Solu-Medrol. Patient will not be given30 cc/kg bolus of IV fluids as there is concern for hypervolemic state. Patient CBC was significant for leukocytosis of 14,000, hemoglobin was 12.1, platelet count was noted to be 287. Patient's arterial blood gas reviewed showed pH 7.31 with a CO2 of 63. Patient sodium was 137, potassium of 4, creatinine was 1.24. Patient's lactic acid elevated 3.4, AST and ALT were 81 and 36 respectively. Patient's troponin was noted to be 52, EKG reviewed and showed sinus tachycardia with a rate of 111 beats per minutes. Delta troponin pending. Patient urinalysis reviewed showed negative nitrites negative leukocyte esterase micro pending. Patient's chest x-ray was reviewed by myself and by radiology showed no acute patient CTA of her chest reviewed and showed no evidence of filling defect to suggest PE very small bilateral pleural effusions and motion at the bases. Small area of consolidation change at the right posterior recess may represent atelectasis with developing pneumonia not excluded. Mild areas of septal thickening in the lower lobes may represent mild incisional edema Central airways are patent moderate emphysematous change and hyperinflated noted. At this point in time will discuss case with hospitalist for admission for acutehypoxic respiratory failure COPD exacerbation. Patient is not on BiPAP at this point time she is on nasal cannula 3 L. Not normally on oxygen. Critical care time 37 minutes Lab Data Labs: Laboratory Results - last 24 hr 01/20/25 01/20/25 00:05 01:58 WBC 14.4 H RBC 4.41 Hgb 12.1 Hct 39.6 MCV 89.8 MCH 27.4 MCHC 30.6 L RDW Std Deviation 52.7 H RDW Coeff of Vijay 16.0 H Plt Count 287 MPV 12.0 Immature Gran % (Auto) 0.500 Neut % (Auto) 58.4 Lymph % (Auto) 32.0 Bacon % (Auto) 7.7 Eos % (Auto) 0.8 Baso % (Auto) 0.6 Absolute Neuts (auto) 8.4 H Absolute Lymphs (auto) 4.62 H Nucleated RBC % 0 PT 14.6 INR 1.1 APTT 26.9 Sodium 137 Potassium 4.0 Chloride 97 L Carbon Dioxide 25.7 Anion Gap 15 BUN 10 Creatinine 1.24 H Estim Creat Clear Calc 34.84 L Est GFR (MDRD) Non-Af 44 L BUN/Creatinine Ratio 8.1 L Glucose 347 H Lactic Acid 3.4 H* Calcium 10.2 Total Bilirubin 0.26 AST 81 H ALT 36 H Alkaline Phosphatase 143 H Troponin T High Sens 52 H D Total Protein 7.6 Albumin 3.6 Globulin 4.1 Albumin/Globulin Ratio 0.9 Urine Color Straw Urine Clarity Clear Urine pH 6.0 Ur Specific Randolph 1.010 Urine Protein 100 H Urine Glucose (UA) 1000 H Urine Ketones Negative Urine Occult Blood 50 H Urine Nitrite Negative Urine Bilirubin Negative Urine Urobilinogen Normal Ur Leukocyte Esterase Negative ABG Data ABG results: ABG 01/20/25 00:19 Specimen Type ART Sample Site R Radial pH 7.31 L Bicarbonate Actual 31.6 H Total CO2 34 Base Excess 5 H O2 Saturation 95 O2 % 100.0 ABG pCO2 63.0 H ABG pO2 83 Baron Test Positive O2 Delivery Device BiPAP Vent Mode Not entered Clinical Comments Radiography Diagnostic Testing: Clinical Impression(s) from Imaging Studies Chest CTA 01/20/25 00:09 IMPRESSION: No evidence of filling defect to suggest pulmonary embolism. Very small bilateral pleural effusions and motion at the bases. Small area of consolidation change at the right posterior recess may represent atelectasis with developing pneumonia not excluded. Mild areas of septal thickening in the lower lobes may represent mild interstitial edema. The central airways are patent. Moderate emphysematous change and hyperinflation. Atherosclerotic changes at the thoracic aortic arch and descending thoracic aorta with some areas of soft plaque formation. Three-vessel coronary calcification noted. Cardiomegaly. No pericardial effusion. Reading Location: [id number] Discharge Plan Triage Chief Complaint: Shortness of Breath ED Provider: Jeevan Yoder Dx/Rx/DC Orders Prescriptions: No Action Januvia 50 mg tablet 50 mg PO DAILY Jardiance 10 mg tablet 10 mg PO DAILY multivitamin Tablet 1 tab PO DAILY pravastatin 20 mg tablet 20 mg PO DAILY aspirin 81 MG tablet,chewable 81 mg PO DAILY metoprolol tartrate 25 MG tablet 25 mg PO BID magnesium oxide 400 MG tablet 400 mg PO BID pantoprazole 40 MG tablet 40 mg PO DAILY gabapentin 100 mg capsule 100 mg PO QHS roflumilast 500 mcg tablet 500 mcg PO DAILY ascorbic acid (vitamin C) [Vitamin C] 250 mg tablet 250 mg PO DAILY insulin lispro [Humalog KwikPen Insulin] 100 unit/mL Insulin Pen 10 unit subcut TIDAC Rx Instructions: Hold if glucose less than 120 mg/dl Mounjaro 5 mg/0.5 mL pen injector 5 mg subcut QWEEK Patient Comments: PT STATES SHE SOMETIMES TAKES IT ON THURSDAY, SOMETIMES ON FRIDAYS. menthol-zinc oxide [CalaSoothe] 0.44-20.6 % ointment 1 applic topical 4X/DAY PRN (Reason: skin irritation) psyllium husk [Daily Fiber] 0.4 gram capsule 0.4 g PO DAILY mecobalamin (vitamin B12) [B12 Active] 1,000 mcg tablet,chewable 1,000 mcg PO DAILY azelastine 137 mcg (0.1 %) spray,non-aerosol 1 - 2 spray INTRANASAL BID acetaminophen 500 mg Tablet 1,000 mg PO Q6H PRN (Reason: Pain Score 1-3) Rocklatan 0.02-0.005 % Drops 1 drp EACH EYE DAILY potassium chloride 20 mEq packet 20 meq PO BID Qty: 30 0RF furosemide [Lasix] 40 mg tablet 40 mg PO DAILY Qty: 5 0RF diltiazem HCl 180 mg capsule,ext.rel 24h degradable 180 mg PO DAILY ipratropium bromide 21 mcg (0.03 %) spray,non-aerosol 1 - 2 spray INTRANASAL Q6H PRN (Reason: allergy symptoms) insulin glargine [Lantus Solostar U-100 Insulin] 100 unit/mL (3 mL) insulin pen 20 unit subcut BID (DME) lancets [TRUEplus Lancets] 28 gauge misc MISCELLANEOUS Breztri Aerosphere 160-9-4.8 mcg/actuation HFA aerosol inhaler 2 inh inhalation BID Primary Care Provider: Ramone Smiley Referrals: Ramone Smiley MD [Primary Care Provider] - Print Language: Kazakh What to do if you have Problems For any increased pain, shortness of breath, bleeding, nausea or vomiting, chestpain, or any unexpected problems, contact your Primary Care Provider. Call [facility] ([phone]) or report to the closest Emergency Room. Call 911 if necessary. 01/20/25 0236 <Electronically signed by Jeevan Yoder DO> Cosigner Signature (if applicable): CC: Dr. Ramone Smiley MD ~ Signed [facility] Work Phone: [phone] 395-286205-23-2025 Radiology Diagnostic study [facility]05-18-2025 Discharge summary [facility] Medical Records Department [address] [place] [address] Emergency Department Summary 01/15/25 MR#: [id number] Acct: [id number] Name: OLGA DONALDSON Rep #:[id number] : 1945 80 From: Jeevan Yoder DO PCP: Dr. Ramone Smiley MD Status:REG ER Location: ED HPI History of Present Illness Chief Complaint: Shortness of Breath Narrative Narrative: Patient is a 80-year-old female with past medical history of CAD, anxiety, depression, microcytic anemia, neurogenic bladder, chronic kidney disease stage III, COPD not normally on oxygen, diabetes who presented to the emergency department with a chief complaint of shortness of breath. Patient states that for the past 2 days she has noted that she had more shortness of breath than normal. States that she recently completed a course of steroids and antibioticsbut does not recall the name of the antibiotic that was placed on. [facility] Medical History Fracture of hip, left, closed Coronary artery disease Paronychia of left index finger Vaginal cyst Anxiety Depression Irregular heart beat Multiple thyroid nodules Foraminal stenosis of lumbar region Lumbar spinal stenosis Diabetic retinopathy Colon polyp Thyroid goiter Hyperlipidemia Hypokalemia Microcytic anemia Neurogenic bladder Hypophosphatemia Hypercalcemia Former smoker UTI (urinary tract infection) Iron deficiency anemia Aortic stenosis Hyponatremia Urine retention Chronic renal failure, stage 3 (moderate) Cellulitis and abscess of finger, unspecified Retinopathy Peripheral artery disease Leg weakness, bilateral GERD (gastroesophageal reflux disease) Chronic idiopathic constipation COPD (chronic obstructive pulmonary disease) Polypharmacy Hypertension Carpal tunnel syndrome of right wrist Strain of right rotator cuff capsule Rhinitis Urinary retention with incomplete bladder emptying Vitamin D deficiency Asthma Pruritus Goiter, nontoxic, multinodular Anemia Diabetes Hx of venous thrombosis and embolism History of malignant neoplasm of breast Type 2 diabetes mellitus Home Medications ?Medication ?Instructions ?Recorded ?Last Taken ?Type aspirin 81 mg chewable tablet 81 mg PO DAILY HERT HEAL TH 01/21/16 01/15/25 History magnesium oxide 400 mg (241.3 mg 400 mg PO BID SUPPLEM ENT 08/16/18 01/15/25 History magnesium) tablet metoprolol tartrate 25 mg tablet 25 mg PO BID BLOOD [place] ESSURE 08/16/18 01/15/25 History pantoprazole 40 mg tablet,delayed 40 mg PO DAILY ACID REFLUX 12/02/19 01/15/25 History release empagliflozin 10 mg tablet 10 mg PO DAILY DIABETES 01/15/25 History (Jardiance) sitagliptin phosphate 50 mg tablet 50 mg PO DAILY DIAB ETES 10/18/20 01/15/25 History (Januvia) multivitamin 1 tab PO DAILY VITAMIN 12/0601/15/25 History pravastatin 20 mg tablet 20 mg PO DAILY CHOLESTEROL 0 12/06/21 01/15/25 History ascorbic acid (vitamin C) 250 mg 250 mg PO DAILY SUPPL EMENT 08/13/23 01/15/25 History tablet (Vitamin C) gabapentin 100 mg capsule 100 mg PO QHS NERVE PAIN 01/14/25 History roflumilast 500 mcg tablet 500 mcg PO DAILY COPD 08/1301/15/25 History insulin lispro 100 unit/mL 10 unit subcut TIDAC short acting 12/30/23 01/15/25 History subcutaneous pen (Humalog KwikPen insulin (U-100) Insulin) budesonide 160 mcg-glycopyr 9 2 inh inhalation BID 06/2401/15/25 History mcg-formot 4.8 mcg/actuation HFA inhaler (Breztri Aerosphere) diltiazem HCl 180 mg 180 mg PO DAILY 01/07/25 History capsule,extended release 24 hr, controlled insulin glargine 100 unit/mL (3 20 unit subcut BID 06/2401/15/25 History mL) subcutaneous pen (Lantus Solostar U-100 Insulin) ipratropium bromide 21 mcg (0.03 1 - 2 spray intranasa l Q6H PRN 01/07/25 Unknown History %) nasal spray allergy symptoms lancets 28 gauge (TRUEplus Lancets) 01/07/25 Unknown History acetaminophen 500 mg tablet 1,000 mg PO Q6H PRN Pain S core 1-3 01/15/25 Unknown History azelastine 137 mcg (0.1 %) nasal 1 - 2 spray intranasa l BID 01/15/25 01/15/25 History spray furosemide 40 mg tablet (Lasix) 40 mg PO DAILY #5 tabs 01/15/25 Unknown Rx mecobalamin (vitamin B12) 1,000 1,000 mcg PO DAILY 01/15/25 History mcg chewable tablet (B12 Active) menthol 0.44 %-zinc oxide 20.6 % 1 applic topical 4X/D AY PRN skin 01/15/25 Unknown History topical ointment (CalaSoothe) irritation netarsudil 0.02 %-latanoprost 1 drp EACH EYE DAILY 01/15/25 History 0.005 % eye drops (Rocklatan) potassium chloride 20 mEq oral 20 meq PO BID #30 ea Unknown Rx packet psyllium husk 0.4 gram capsule 0.4 g PO DAILY 01/15/25 01/15/25 History (Daily Fiber) tirzepatide 5 mg/0.5 mL 5 mg subcut QWEEK 01/15/25 U nknown History subcutaneous pen injector (Prabhu) Allergy/AdvReac Type Severity Reaction Status Date / Time adhesive tape (tape) Allergy NEEDS Verified 01/15/25 14:25 FOLLOW-UP amoxicillin Allergy YEAST Verified 01/15/25 14:25 INFECTION cephalexin monohydrate (From Allergy Rash Verified 01/15/25 14:25 Keflex) clopidogrel bisulfate (From Allergy Other Verified 01/15/25 14:25 Plavix) Family History Daughter Breast cancer Father Hypertension Sister Cancer Kidney disease Mother Pancreatic cancer Surgical History History of left hip hemiarthroplasty S/P fine needle aspiration (~10/2020) H/O dilation and curettage (~07/10/20) History of Achilles tendon repair Retinopathy History of lumpectomy of left breast Social History household members: spouse Smoking Status: Former smoker alcohol intake: never substance use type: does not use caffeine: Yes what type of physical activity do you participate in: none seatbelt use: always do you feel safe at home: Yes additional social history: [employer]- retired ROS ROS ED ROS Narrative Constitutional: Denies fevers, chills, headaches, lightness, dizziness Eyes: Denies all vision blurry vision changes vision Cardiovascular: Denies chest pain palpitations Respiratory: Complains of shortness of breath with exertion Abdomen: Denies abdominal pain nausea vomit diarrhea : Denies urinary symptoms Neurological: Denies any numbness, wheeze, tingling Musculoskeletal: Denies back pain Skin: Denies any rashes or lesions EXAM Physical Exam Narrative Exam Narrative: General: Patient lying in bed rest comfortably did not appear to be acute distress Head: Atraumatic, normocephalic Eyes: PERRL bilaterally, EOMI bilateral, no conjunctival injection noted Neck: Soft, supple, trachea midline Cardiovascular: Regular rate and rhythm patient does have a murmur noted on examno rubs noted Respiratory: Clear to auscultation bilaterally no rales rhonchi or wheeze noted Abdomen: Soft, nondistended, no tenderness palpation Extremities: +4/5 strength noted in the bilateral upper and lower extremity, radial pulses +2/4 in the bilateral extremities, 1+ pitting edema in the bilateral lower extremities Neurological: Patient follow commands and that she was at [facility] the year is 2024 Skin: Warm, dry, intact no rashes or lesions noted, Const Vital Signs: 01/15/25 14:14 01/15/25 15:17 01/15/25 15:22 Temperature 98.1 F Temperature Source Oral Pulse Rate 71 Respiratory Rate 19 H Respiratory Effort Normal Non-Labored Respiratory Pattern Normal Blood Pressure 139/60 H Blood Pressure Mean 86 Pulse Ox 98 98 Oxygen Delivery Method Room Air Room Air Room Air 01/15/25 15:30 01/15/25 16:12 01/15/25 17:00 Temperature Temperature Source Pulse Rate 69 66 69 Respiratory Rate 23 H 21 H 20 H Respiratory Effort Respiratory Pattern Blood Pressure 129/70 H 128/59 H 147/81 H Blood Pressure Mean 89 81 103 Pulse Ox 98 Oxygen Delivery Method Room Air 01/15/25 17:45 Temperature Temperature Source Pulse Rate 69 Respiratory Rate 22 H Respiratory Effort Respiratory Pattern Blood Pressure Blood Pressure Mean Pulse Ox 98 Oxygen Delivery Method MDM MDM MDM Narrative Medical decision making narrative: Patient is a 80-year-old female who presented to the emergency department for complaint of shortness of breath on exertion. On the differential diagnosis includes but not limited to CHF, pneumonia, pneumothorax, posterior infection, viral etiology, COPD exacerbation. Once workup is obtained reviewed she will bereevaluated. Patient's CBC was reviewed and showed no evidence leukocytosis white blood countnormal at 10.6, hemoglobin is 11, platelet count was noted be 256. Patient's sodium was 138, potassium 3.7, creatinine was normal at 0.92. Patient's troponin was 46 with a delta troponin obtained at 46, EKG reviewed and showed sinus rhythm with a rate of 67 beats per minutes. When compared to previous EKGfrom January 07, 2025 this was largely unchanged. Patient's proBNP elevated 4224. Patient chest x-ray was reviewed bymyself and by radiology which showed cardiomegaly with mild congestion. Patient ambulated well here in the emergency department no tachycardia no hypoxia. Patient's echocardiogram from 06/20/2021 reviewed showed ejection fraction 70%. Patient was given 40 mg of IV Lasix. At this point in time patient would like to go home while ambulating she felt well and had no shortness of breath she states that its much improved since earlier today. Advised her that we will placeher on oral Lasix for the next 5 days as well as some potassium supplementation and she needs to follow-up with her primary care physician outpatient setting. She needs to return for worsening symptoms and concerns. She is agreeable this plan all question concerns answered she was discharged home in stable condition. Lab Data Labs: Laboratory Results - last 24 hr 01/15/25 01/15/25 15:15 17:19 WBC 10.6 RBC 3.96 L Hgb 11.0 L Hct 34.3 L MCV 86.6 MCH 27.8 MCHC 32.1 RDW Std Deviation 50.8 H RDW Coeff of Vijay 16.3 H Plt Count 256 MPV 10.5 Immature Gran % (Auto) 0.400 Neut % (Auto) 72.7 H Lymph % (Auto) 18.1 L Bacon % (Auto) 6.9 Eos % (Auto) 1.6 Baso % (Auto) 0.3 Absolute Neuts (auto) 7.7 Absolute Lymphs (auto) 1.92 Nucleated RBC % 0 Sodium 138 Potassium 3.7 Chloride 102 Carbon Dioxide 25.0 Anion Gap 11 BUN 15 Creatinine 0.92 Estim Creat Clear Calc 48.84 L Est GFR (MDRD) Non-Af 63 BUN/Creatinine Ratio 16.6 Glucose 144 H Calcium 9.6 Troponin T High Sens 46 H Troponin T Hi Sens 2 Hr 46 H NT pro BNP II 4224 H Radiography Diagnostic Testing: Clinical Impression(s) from Imaging Studies Chest X-Ray 01/15/25 15:21 IMPRESSION: Cardiomegaly with mild congestion. Reading Location: [facility] Discharge Plan Triage Chief Complaint: Shortness of Breath ED Provider: Jeevan Yoder Dx/Rx/DC Orders Clinical Impression: Shortness of breath Prescriptions: New potassium chloride 20 mEq packet 20 meq PO BID Qty: 30 0RF furosemide [Lasix] 40 mg tablet 40 mg PO DAILY Qty: 5 0RF No Action Januvia 50 mg tablet 50 mg PO DAILY Jardiance 10 mg tablet 10 mg PO DAILY multivitamin Tablet 1 tab PO DAILY pravastatin 20 mg tablet 20 mg PO DAILY aspirin 81 MG tablet,chewable 81 mg PO DAILY metoprolol tartrate 25 MG tablet 25 mg PO BID magnesium oxide 400 MG tablet 400 mg PO BID pantoprazole 40 MG tablet 40 mg PO DAILY gabapentin 100 mg capsule 100 mg PO QHS roflumilast 500 mcg tablet 500 mcg PO DAILY ascorbic acid (vitamin C) [Vitamin C] 250 mg tablet 250 mg PO DAILY insulin lispro [Humalog KwikPen Insulin] 100 unit/mL Insulin Pen 10 unit subcut TIDAC Rx Instructions: Hold if glucose less than 120 mg/dl Mounjaro 5 mg/0.5 mL pen injector 5 mg subcut QWEEK Patient Comments: PT STATES SHE SOMETIMES TAKES IT ON THURSDAY, SOMETIMES ON FRIDAYS. menthol-zinc oxide [CalaSoothe] 0.44-20.6 % ointment 1 applic topical 4X/DAY PRN (Reason: skin irritation) psyllium husk [Daily Fiber] 0.4 gram capsule 0.4 g PO DAILY mecobalamin (vitamin B12) [B12 Active] 1,000 mcg tablet,chewable 1,000 mcg PO DAILY azelastine 137 mcg (0.1 %) spray,non-aerosol 1 - 2 spray INTRANASAL BID acetaminophen 500 mg Tablet 1,000 mg PO Q6H PRN (Reason: Pain Score 1-3) Rocklatan 0.02-0.005 % Drops 1 drp EACH EYE DAILY diltiazem HCl 180 mg capsule,ext.rel 24h degradable 180 mg PO DAILY ipratropium bromide 21 mcg (0.03 %) spray,non-aerosol 1 - 2 spray INTRANASAL Q6H PRN (Reason: allergy symptoms) insulin glargine [Lantus Solostar U-100 Insulin] 100 unit/mL (3 mL) insulin pen 20 unit subcut BID (DME) lancets [TRUEplus Lancets] 28 gauge misc MISCELLANEOUS Breztri Aerosphere 160-9-4.8 mcg/actuation HFA aerosol inhaler 2 inh inhalation BID Primary Care Provider: Ramone Smiley Referrals: Ramone Smiley MD [Primary Care Provider] - Activity Restrictions/Additional Instructions: Take medications as prescribed. Follow-up your doctor in outpatient setting. Return with worsening symptoms or concerns. Print Language: Kazakh Disposition Disposition: Home, Self Care What to do if you have Problems For any increased pain, shortness of breath, bleeding, nausea or vomiting, chestpain, or any unexpected problems, contact your Primary Care Provider. Call [facility] ([phone]) or report tothe closest Emergency Room. Call 911 if necessary. 01/15/25 184 Cosigner Signature (if applicable): CC: Dr. Ramone Smiley MD ~ Signed [facility]05-18-2025 Radiology Diagnostic study note [facility] Imaging Services [address] [place] [address] Chest PA and Lateral MR#: [id number] Acct: [id number] Name: OLGA DONALDSON Rep #: [id number] : 1945 F 80 From: Kary Darnell MD PCP: Dr. Ramone Smiley MD Status: REG ER Study:Chest PA and Lateral Date of Exam: 01/15/25 Exam# [id number] Ordering Dr: Yoly Yoder DO EXAM: XR Chest, 2 Views CLINICAL INDICATION: CHEST PAIN TECHNIQUE: Frontal and lateral views of the chest. COMPARISON: No relevant prior studies available. FINDINGS: LUNGS AND PLEURAL SPACES: See below. HEART: Cardiomegaly with mild congestion. MEDIASTINUM: Unremarkable. Normal mediastinal contour. BONES/JOINTS: Unremarkable. No acute fracture. RAD/Chest PA and Lateral IMPRESSION: Cardiomegaly with mild congestion. Reading Location: [id number] CC: Dr. Ramone Smiley MD; Dr. Jeevan Yoder DO ~ [employer] Consultant: Signed [facility]05-18-2025 Discharge summary Author Jeevan Yoder [facility] Note Date/Time January 15, 2025 6:45p m [facility] Medical Records Department [address] [place] [address] Emergency Department Summary 01/15/25 MR#: [id number] Acct: [id number] Name: OLGA DONALDSON Rep #:[id number] : 1945 80 From: Jeevan Yoder DO PCP: Dr. Ramone Smiley MD Status:REG ER Location: ED HPI History of Present Illness Chief Complaint: Shortness of Breath Narrative Narrative: Patient is a 80-year-old female with past medical history of CAD, anxiety, depression, microcytic anemia, neurogenic bladder, chronic kidney disease stage III, COPD not normally on oxygen, diabetes who presented to the emergency department with a chief complaint of shortness of breath. Patient states that for the past 2 days she has noted that she had more shortness of breath than normal. States that she recently completed a course of steroids and antibioticsbut does not recall the name of the antibiotic that was placed on. [facility] Medical History Fracture of hip, left, closed Coronary artery disease Paronychia of left index finger Vaginal cyst Anxiety Depression Irregular heart beat Multiple thyroid nodules Foraminal stenosis of lumbar region Lumbar spinal stenosis Diabetic retinopathy Colon polyp Thyroid goiter Hyperlipidemia Hypokalemia Microcytic anemia Neurogenic bladder Hypophosphatemia Hypercalcemia Former smoker UTI (urinary tract infection) Iron deficiency anemia Aortic stenosis Hyponatremia Urine retention Chronic renal failure, stage 3 (moderate) Cellulitis and abscess of finger, unspecified Retinopathy Peripheral artery disease Leg weakness, bilateral GERD (gastroesophageal reflux disease) Chronic idiopathic constipation COPD (chronic obstructive pulmonary disease) Polypharmacy Hypertension Carpal tunnel syndrome of right wrist Strain of right rotator cuff capsule Rhinitis Urinary retention with incomplete bladder emptying Vitamin D deficiency Asthma Pruritus Goiter, nontoxic, multinodular Anemia Diabetes Hx of venous thrombosis and embolism History of malignant neoplasm of breast Type 2 diabetes mellitus Home Medications ?Medication ?Instructions ?Recorded ?Last Taken ?Type aspirin 81 mg chewable tablet 81 mg PO DAILY HERT HEAL TH 01/21/16 01/15/25 History magnesium oxide 400 mg (241.3 mg 400 mg PO BID SUPPLEM ENT 08/16/18 01/15/25 History magnesium) tablet metoprolol tartrate 25 mg tablet 25 mg PO BID BLOOD [place] ESSURE 08/16/18 01/15/25 History pantoprazole 40 mg tablet,delayed 40 mg PO DAILY ACID REFLUX 12/02/19 01/15/25 History release empagliflozin 10 mg tablet 10 mg PO DAILY DIABETES 01/15/25 History (Jardiance) sitagliptin phosphate 50 mg tablet 50 mg PO DAILY DIAB ETES 10/18/20 01/15/25 History (Januvia) multivitamin 1 tab PO DAILY VITAMIN 12/0601/15/25 History pravastatin 20 mg tablet 20 mg PO DAILY CHOLESTEROL 0 12/06/21 01/15/25 History ascorbic acid (vitamin C) 250 mg 250 mg PO DAILY SUPPL EMENT 08/13/23 01/15/25 History tablet (Vitamin C) gabapentin 100 mg capsule 100 mg PO QHS NERVE PAIN 01/14/25 History roflumilast 500 mcg tablet 500 mcg PO DAILY COPD 08/1301/15/25 History insulin lispro 100 unit/mL 10 unit subcut TIDAC short acting 12/30/23 01/15/25 History subcutaneous pen (Humalog KwikPen insulin (U-100) Insulin) budesonide 160 mcg-glycopyr 9 2 inh inhalation BID 06/2401/15/25 History mcg-formot 4.8 mcg/actuation HFA inhaler (Breztri Aerosphere) diltiazem HCl 180 mg 180 mg PO DAILY 01/07/25 History capsule,extended release 24 hr, controlled insulin glargine 100 unit/mL (3 20 unit subcut BID 06/2401/15/25 History mL) subcutaneous pen (Lantus Solostar U-100 Insulin) ipratropium bromide 21 mcg (0.03 1 - 2 spray intranasa l Q6H PRN 01/07/25 Unknown History %) nasal spray allergy symptoms lancets 28 gauge (TRUEplus Lancets) 01/07/25 Unknown History acetaminophen 500 mg tablet 1,000 mg PO Q6H PRN Pain S core 1-3 01/15/25 Unknown History azelastine 137 mcg (0.1 %) nasal 1 - 2 spray intranasa l BID 01/15/25 01/15/25 History spray furosemide 40 mg tablet (Lasix) 40 mg PO DAILY #5 tabs 01/15/25 Unknown Rx mecobalamin (vitamin B12) 1,000 1,000 mcg PO DAILY 01/15/25 History mcg chewable tablet (B12 Active) menthol 0.44 %-zinc oxide 20.6 % 1 applic topical 4X/D AY PRN skin 01/15/25 Unknown History topical ointment (CalaSoothe) irritation netarsudil 0.02 %-latanoprost 1 drp EACH EYE DAILY 01/15/25 History 0.005 % eye drops (Rocklatan) potassium chloride 20 mEq oral 20 meq PO BID #30 ea Unknown Rx packet psyllium husk 0.4 gram capsule 0.4 g PO DAILY 01/15/25 01/15/25 History (Daily Fiber) tirzepatide 5 mg/0.5 mL 5 mg subcut QWEEK 01/15/25 U nknown History subcutaneous pen injector (Mounjaro) Allergy/AdvReac Type Severity Reaction Status Date / Time adhesive tape (tape) Allergy NEEDS Verified 01/15/25 14:25 FOLLOW-UP amoxicillin Allergy YEAST Verified 01/15/25 14:25 INFECTION cephalexin monohydrate (From Allergy Rash Verified 01/15/25 14:25 Keflex) clopidogrel bisulfate (From Allergy Other Verified 01/15/25 14:25 Plavix) Family History Daughter Breast cancer Father Hypertension Sister Cancer Kidney disease Mother Pancreatic cancer Surgical History History of left hip hemiarthroplasty S/P fine needle aspiration (~10/2020) H/O dilation and curettage (~07/10/20) History of Achilles tendon repair Retinopathy History of lumpectomy of left breast Social History household members: spouse Smoking Status: Former smoker alcohol intake: never substance use type: does not use caffeine: Yes what type of physical activity do you participate in: none seatbelt use: always do you feel safe at home: Yes additional social history: [employer]- retired ROS ROS ED ROS Narrative Constitutional: Denies fevers, chills, headaches, lightness, dizziness Eyes: Denies all vision blurry vision changes vision Cardiovascular: Denies chest pain palpitations Respiratory: Complains of shortness of breath with exertion Abdomen: Denies abdominal pain nausea vomit diarrhea : Denies urinary symptoms Neurological: Denies any numbness, wheeze, tingling Musculoskeletal: Denies back pain Skin: Denies any rashes or lesions EXAM Physical Exam Narrative Exam Narrative: General: Patient lying in bed rest comfortably did not appear to be acute distress Head: Atraumatic, normocephalic Eyes: PERRL bilaterally, EOMI bilateral, no conjunctival injection noted Neck: Soft, supple, trachea midline Cardiovascular: Regular rate and rhythm patient does have a murmur noted on examno rubs noted Respiratory: Clear to auscultation bilaterally no rales rhonchi or wheeze noted Abdomen: Soft, nondistended, no tenderness palpation Extremities: +4/5 strength noted in the bilateral upper and lower extremity, radial pulses +2/4 in the bilateral extremities, 1+ pitting edema in the bilateral lower extremities Neurological: Patient follow commands and that she was at [facility] the year is 2024 Skin: Warm, dry, intact no rashes or lesions noted, Const Vital Signs: 01/15/25 14:14 01/15/25 15:17 01/15/25 15:22 Temperature 98.1 F Temperature Source Oral Pulse Rate 71 Respiratory Rate 19 H Respiratory Effort Normal Non-Labored Respiratory Pattern Normal Blood Pressure 139/60 H Blood Pressure Mean 86 Pulse Ox 98 98 Oxygen Delivery Method Room Air Room Air Room Air 01/15/25 15:30 01/15/25 16:12 01/15/25 17:00 Temperature Temperature Source Pulse Rate 69 66 69 Respiratory Rate 23 H 21 H 20 H Respiratory Effort Respiratory Pattern Blood Pressure 129/70 H 128/59 H 147/81 H Blood Pressure Mean 89 81 103 Pulse Ox 98 Oxygen Delivery Method Room Air 01/15/25 17:45 Temperature Temperature Source Pulse Rate 69 Respiratory Rate 22 H Respiratory Effort Respiratory Pattern Blood Pressure Blood Pressure Mean Pulse Ox 98 Oxygen Delivery Method MDM MDM MDM Narrative Medical decision making narrative: Patient is a 80-year-old female who presented to the emergency department for complaint of shortness of breath on exertion. On the differential diagnosis includes but not limited to CHF, pneumonia, pneumothorax, posterior infection, viral etiology, COPD exacerbation. Once workup is obtained reviewed she will bereevaluated. Patient's CBC was reviewed and showed no evidence leukocytosis white blood countnormal at 10.6, hemoglobin is 11, platelet count was noted be 256. Patient's sodium was 138, potassium 3.7, creatinine was normal at 0.92. Patient's troponin was 46 with a delta troponin obtained at 46, EKG reviewed and showed sinus rhythm with a rate of 67 beats per minutes. When compared to previous EKGfrom January 07, 2025 this was largely unchanged. Patient's proBNP elevated 4224. Patient chest x-ray was reviewed by myself and by radiology which showed cardiomegaly with mild congestion. Patient ambulated well here in the emergency department no tachycardia no hypoxia. Patient's echocardiogram from 06/20/2021 reviewed showed ejection fraction 70%. Patient was given 40 mg of IV Lasix. At this point in time patient would like to go home while ambulating she felt well and had no shortness of breath she states that its much improved since earlier today. Advised her that we will place her on oral Lasix for the next 5 days as well as some potassium supplementation and she needs to follow-up with her primary care physician outpatient setting. She needs to return for worsening symptoms and concerns. She is agreeable this plan all question concerns answered she was discharged home in stable condition. Lab Data Labs: Laboratory Results - last 24 hr 01/15/25 01/15/25 15:15 17:19 WBC 10.6 RBC 3.96 L Hgb 11.0 L Hct 34.3 L MCV 86.6 MCH 27.8 MCHC 32.1 RDW Std Deviation 50.8 H RDW Coeff of Vijay 16.3 H Plt Count 256 MPV 10.5 Immature Gran % (Auto) 0.400 Neut % (Auto) 72.7 H Lymph % (Auto) 18.1 L Bacon % (Auto) 6.9 Eos % (Auto) 1.6 Baso % (Auto) 0.3 Absolute Neuts (auto) 7.7 Absolute Lymphs (auto) 1.92 Nucleated RBC % 0 Sodium 138 Potassium 3.7 Chloride 102 Carbon Dioxide 25.0 Anion Gap 11 BUN 15 Creatinine 0.92 Estim Creat Clear Calc 48.84 L Est GFR (MDRD) Non-Af 63 BUN/Creatinine Ratio 16.6 Glucose 144 H Calcium 9.6 Troponin T High Sens 46 H Troponin T Hi Sens 2 Hr 46 H NT pro BNP II 4224 H Radiography Diagnostic Testing: Clinical Impression(s) from Imaging Studies Chest X-Ray 01/15/25 15:21 IMPRESSION: Cardiomegaly with mild congestion. [facility] T[facility] Chief Complaint: Shortness of Breath ED Provider: Jeevan Yoder Dx/Rx/DC Orders Clinical Impression: Shortness of breath Prescriptions: New potassium chloride 20 mEq packet 20 meq PO BID Qty: 30 0RF furosemide [Lasix] 40 mg tablet 40 mg PO DAILY Qty: 5 0RF No Action Januvia 50 mg tablet 50 mg PO DAILY Jardiance 10 mg tablet 10 mg PO DAILY multivitamin Tablet 1 tab PO DAILY pravastatin 20 mg tablet 20 mg PO DAILY aspirin 81 MG tablet,chewable 81 mg PO DAILY metoprolol tartrate 25 MG tablet 25 mg PO BID magnesium oxide 400 MG tablet 400 mg PO BID pantoprazole 40 MG tablet 40 mg PO DAILY gabapentin 100 mg capsule 100 mg PO QHS roflumilast 500 mcg tablet 500 mcg PO DAILY ascorbic acid (vitamin C) [Vitamin C] 250 mg tablet 250 mg PO DAILY insulin lispro [Humalog KwikPen Insulin] 100 unit/mL Insulin Pen 10 unit subcut TIDAC Rx Instructions: Hold if glucose less than 120 mg/dl Mounjaro 5 mg/0.5 mL pen injector 5 mg subcut QWEEK Patient Comments: PT STATES SHE SOMETIMES TAKES IT ON THURSDAY, SOMETIMES ON FRIDAYS. menthol-zinc oxide [CalaSoothe] 0.44-20.6 % ointment 1 applic topical 4X/DAY PRN (Reason: skin irritation) psyllium husk [Daily Fiber] 0.4 gram capsule 0.4 g PO DAILY mecobalamin (vitamin B12) [B12 Active] 1,000 mcg tablet,chewable 1,000 mcg PO DAILY azelastine 137 mcg (0.1 %) spray,non-aerosol 1 - 2 spray INTRANASAL BID acetaminophen 500 mg Tablet 1,000 mg PO Q6H PRN (Reason: Pain Score 1-3) Rocklatan 0.02-0.005 % Drops 1 drp EACH EYE DAILY diltiazem HCl 180 mg capsule,ext.rel 24h degradable 180 mg PO DAILY ipratropium bromide 21 mcg (0.03 %) spray,non-aerosol 1 - 2 spray INTRANASAL Q6H PRN (Reason: allergy symptoms) insulin glargine [Lantus Solostar U-100 Insulin] 100 unit/mL (3 mL) insulin pen 20 unit subcut BID (DME) lancets [TRUEplus Lancets] [facility] MISCELLANEOUS Breztri Aerosphere 160-9-4.8 mcg/actuation HFA aerosol inhaler 2 inh inhalation BID Primary Care Provider: Ramone Smiley Referrals: Ramone Smiley MD [Primary Care Provider] - Activity Restrictions/Additional Instructions: Take medications as prescribed. Follow-up your doctor in outpatient setting. Return with worsening symptoms or concerns. Print Language: Kazakh Disposition Disposition: Home, Self Care What to do if you have Problems For any increased pain, shortness of breath, bleeding, nausea or vomiting, chestpain, or any unexpected problems, contact your Primary Care Provider. Call [facility] ([phone]) or report to the closest Emergency Room. Call 911 if necessary. 01/15/251844 <Electronically signed by Jeevan Yoder DO> Cosigner Signature (if applicable): CC: Dr. Ramone Smiley MD ~ Signed [facility] Work Phone: [phone] Discharge summary [facility] Medical Records Department [address] [place] [address] Emergency Department Summary 01/07/25 MR#: [id number] Acct: [id number] Name: OLGA DONALDSON Rep #:[id number] : 1945 80 From: Ethan Casanova PCP: Dr. Ramone Smiley MD Status:REG ER Location: ED HPI History of Present Illness Chief Complaint: Shortness of Breath Informant: patient Narrative Narrative: Presents by EMS from home 5-day history of worsening dyspnea wheeze with productive sputum. Historyof asthma COPD remote tobacco. No home oxygen. Wheezing with mild sputum. Status post 2 DuoNeb's byEMS states clinically feeling better. She has inhaler at home. No chest or abdominal pain. No vomiting or diarrhea. No urinary symptoms. No fever or chills. Similar symptoms with flares in the past. She is a diabetic. Prior similar symptoms: Yes PFSH PFSH Medical History Fracture of hip, left, closed Coronary artery disease Paronychia of left index finger Vaginal cyst Anxiety Depression Irregular heart beat Multiple thyroid nodules Foraminal stenosis of lumbar region Lumbar spinal stenosis Diabetic retinopathy Colon polyp Thyroid goiter Hyperlipidemia Hypokalemia Microcytic anemia Neurogenic bladder Hypophosphatemia Hypercalcemia Former smoker UTI (urinary tract infection) Iron deficiency anemia Aortic stenosis Hyponatremia Urine retention Chronic renal failure, stage 3 (moderate) Cellulitis and abscess of finger, unspecified Retinopathy Peripheral artery disease Leg weakness, bilateral GERD (gastroesophageal reflux disease) Chronic idiopathic constipation COPD (chronic obstructive pulmonary disease) Polypharmacy Hypertension Carpal tunnel syndrome of right wrist Strain of right rotator cuff capsule Rhinitis Urinary retention with incomplete bladder emptying Vitamin D deficiency Asthma Pruritus Goiter, nontoxic, multinodular Anemia Diabetes Hx of venous thrombosis and embolism History of malignant neoplasm of breast Type 2 diabetes mellitus Home Medications ?Medication ?Instructions ?Recorded ?Last Taken ?Type aspirin 81 mg chewable tablet 81 mg PO DAILY HERT HEAL TH 01/21/16 08/12/23 History magnesium oxide 400 mg (241.3 mg 400 mg PO BID SUPPLEM ENT 08/16/18 08/12/23 History magnesium) tablet metoprolol tartrate 25 mg tablet 25 mg PO BID BLOOD NY ESSURE 08/16/18 08/12/23 History pantoprazole 40 mg tablet,delayed 40 mg PO QHS ACID RE FLUX 12/02/19 08/12/23 History release empagliflozin 10 mg tablet 10 mg PO DAILY DIABETES 08/12/23 History (Jardiance) sitagliptin phosphate 50 mg tablet 50 mg PO DAILY DIAB ETES 10/18/20 08/12/23 History (Januvia) multivitamin 1 tab PO DAILY VITAMIN 12/0608/12/23 History pravastatin 20 mg tablet 20 mg PO DAILY CHOLESTEROL 0 12/06/21 08/12/23 History ascorbic acid (vitamin C) 250 mg 250 mg PO DAILY SUPPL EMENT 08/13/23 08/12/23 History tablet (Vitamin C) dulaglutide 0.75 mg/0.5 mL 0.75 mg subcut MO DIABETES 08/13/23 08/10/23 History subcutaneous pen injector (Trulicity) gabapentin 100 mg capsule 100 mg PO QHS NERVE PAIN 08/12/23 History roflumilast 500 mcg tablet 500 mcg PO DAILY COPD 08/1308/12/23 History insulin glargine-yfgn 100 unit/mL 15 unit (0.15 mL) avila bcut BID 12/30/23 Unknown Rx (3 mL) subcutaneous pen diabetes-long acting insulin #0 mL insulin lispro 100 unit/mL 8 unit subcut TIDAC short a cting 12/30/23 Unknown History subcutaneous pen (Humalog KwikPen insulin (U-100) Insulin) acetaminophen 500 mg tablet 1,000 mg (2 x 500 mg) PO Q 6H PRN 01/15/24 Unknown Rx PRN Pain Score 1-3 #0 tabs netarsudil 0.02 %-latanoprost 0 drp EACH EYE DAILY #0 mL 01/15/24 Unknown Rx 0.005 % eye drops (Rocklatan) azithromycin 250 mg tablet 250 mg PO DAILY #4 TABLETS 01/07/25 Unknown Rx budesonide 160 mcg-glycopyr 9 inh inhalation 01/07/25 Unknown History mcg-formot 4.8 mcg/actuation HFA inhaler (Breztri Aerosphere) diltiazem HCl 180 mg mg PO 01/07/25 Unknown Histo ry capsule,extended release 24 hr, controlled insulin glargine 100 unit/mL (3 unit subcut 01/07/25 U nknown History mL) subcutaneous pen (Lantus Solostar U-100 Insulin) ipratropium bromide 21 mcg (0.03 intranasal 01/07/25 U nknown History %) nasal spray lancets 28 gauge (TRUEplus Lancets) 01/07/25 Unknown History prednisone 20 mg tablet 40 mg (2 x 20 mg) PO DAILY # 8 01/07/25 Unknown Rx TABLETS triamcinolone acetonide 0.1 % 1 applic topical TID 06/24 Unknown History topical ointment Allergy/AdvReac Type Severity Reaction Status Date / Time adhesive tape (tape) Allergy NEEDS Verified 01/07/25 14:59 FOLLOW-UP amoxicillin Allergy YEAST Verified 01/07/25 14:59 INFECTION cephalexin monohydrate (From Allergy Rash Verified 01/07/25 14:59 Keflex) clopidogrel bisulfate (From Allergy Other Verified 01/07/25 14:59 Plavix) Family History Daughter Breast cancer Father Hypertension Sister Cancer Kidney disease Mother Pancreatic cancer Surgical History History of left hip hemiarthroplasty S/P fine needle aspiration (~10/2020) H/O dilation and curettage (~07/10/20) History of Achilles tendon repair Retinopathy History of lumpectomy of left breast Social History household members: spouse Smoking Status: Former smoker alcohol intake: never substance use type: does not use caffeine: Yes what type of physical activity do you participate in: none seatbelt use: always do you feel safe at home: Yes additional social history: [employer]- retired ROS ROS ED Constitutional Constitutional ED: Denies chills, fever(s) or sweats ENT ENT ED: Denies sore throat Cardiovascular Cardiovascular: Denies chest pain, leg edema, palpitations or racing heartbeat Respiratory/Chest Respiratory/Chest: Reports cough and dyspnea; Denies dyspnea on exertion Gastrointestinal Gastrointestinal: Denies abdominal pain, diarrhea, nausea or vomiting Genitourinary Genitourinary ED: Denies dysuria, hematuria or urinary frequency Musculoskeletal Musculoskeletal: Denies back pain, extremity pain or neck pain Integumentary Denies rash or wounds Neurologic Neurologic: Denies headache(s), paresthesias or weakness EXAM Physical Exam Const Vital Signs: 01/07/25 14:56 01/07/25 14:59 Temperature 98 F Temperature Source Oral Pulse Rate 92 Respiratory Rate 34 H Respiratory Effort Normal Non-Labored Respiratory Depth Normal Respiratory Pattern Tachypnea Blood Pressure 184/70 H Blood Pressure Mean 108 Pulse Ox 99 Oxygen Delivery Method Room Air Room Air Positive well nourished and well developed General Appearance ED: well developed and NAD HEENT Reports moist mucous membranes normocephalic and atraumatic Eyes General Eye ED: Yes normal appearance of both eyes Neck full ROM Chest Wall Chest: Negative for tenderness Resp normal respiratory effort Resp Narrative: Faint expiratory wheeze right lower lobe. No distress. Effort and Inspection: symmetric chest movement; Negative for respiratory distress Cardio regular rate, regular rhythm and no murmurs Peripheral Pulses: pulses 2+ throughout GI normal to inspection, nondistended, normoactive bowel sounds and non-tender Palpation: Negative for guarding or rebound tenderness present Extremity normal to inspection General Extremety ED: Negative for edema or tenderness General Extremity: Negative for edema Neuro oriented x3 and no sensory deficits noted Sensorium / Orientation: awake and alert Skin no rashes or lesions noted and no wounds MDM MDM MDM Narrative Medical decision making narrative: Interventions / MDM: Differential diagnosis: COPD exacerbation, asthma exacerbation diabetic hyperglycemia Diagnosis considered but do not suspect: Pneumonia however x-ray negative, diabetic ketoacidosis every anion gap normal. My EKG interpretation: Sinus rhythm 91, no ST or T wave changes. QTc 467. Imaging independently reviewed and interpreted by myself: 2 view chest x-ray: Noinfiltrate or effusion. Also read by radiology. External documents reviewed: Hospitalization in November 2023 for hip fracture was on Eliquis for DVT prophylaxis postsurgery. Test considered but not ordered:N/A ED course: Vital signs stable initial triage had respiratory rate of 34 in the room she is 16. She is in no respiratory distress. Afebrile 99% on room air. Faint wheeze asthma COPD history she is a diabetic. Will start steroids 40 mg for diabetes history. Will check basic labs EKG chest x-ray. Check nasal swab. will reevaluate. 1615: Chest x-ray negative. White count 9.1 hemoglobin 10.5. Creatinine 0.9. Glucose was 321 with normal gap at 11. Discussed with patient she is on long- acting and short acting sliding scale along with Januvia. With her get steroidsI will give her 10 units of Humalog short acting. Clinically remaining stable. Awaiting viral swab. Will ambulate with a pulse ox for disposition plan. 1655: Viral swabs negative. Patient ambulated 94% on room air. Patient will check her glucose before dinner if she has her sliding scale written at home forinsulin. She understands sugars will be up with the steroids. She will be placed on 4 days of antibiotics and steroids. She will follow-up withher PCP. Strict return precaution discussed. All questions were answered. Re-evaluation: stable Disposition discussed with patient/family/significant other: Patient Case discussed with consulting clinician: N/A This note was generated with Feeligoation software. It may contain incorrectwords, spelling, and punctuation that were not noted in checking the note beforesigning. Lab Data Attestation: I reviewed the patient's lab results. Labs: Laboratory Results - last 24 hr 01/07/25 01/07/25 15:21 16:32 WBC 9.1 RBC 3.91 L Hgb 10.5 L Hct 34.0 L MCV 87.0 MCH 26.9 L MCHC 30.9 L RDW Std Deviation 49.4 H RDW Coeff of Vijay 15.7 H Plt Count 237 MPV 11.1 Immature Gran % (Auto) 0.200 Neut % (Auto) 58.0 Lymph % (Auto) 31.8 Bacon % (Auto) 7.6 Eos % (Auto) 1.9 Baso % (Auto) 0.5 Absolute Neuts (auto) 5.3 Absolute Lymphs (auto) 2.89 Nucleated RBC % 0 Sodium 133 Potassium 3.8 Chloride 99 Carbon Dioxide 22.5 Anion Gap 11 BUN 14 Creatinine 0.90 Estim Creat Clear Calc 49.31 L Est GFR (MDRD) Non-Af 64 BUN/Creatinine Ratio 15.5 Glucose 321 H Calcium 10.3 POC Glucose 316 H Radiography Diagnostic Testing: Clinical Impression(s) from Imaging Studies Chest X-Ray 01/07/25 15:33 IMPRESSION: Cardiomegaly without overt failure. Reading Location: [facility] Discharge Plan Triage Chief Complaint: Shortness of Breath ED Provider: Ethan Darnell Dx/Rx/DC Orders Clinical Impression: Acute exacerbation of COPD with asthma, Diabetes, Cough Instructions: ED COPD Flare Prescriptions: New azithromycin 250 mg tablet 250 mg PO DAILY Qty: 4 0RF prednisone 20 mg tablet 40 mg PO DAILY Qty: 8 0RF No Action Januvia 50 mg tablet 50 mg PO DAILY Jardiance 10 mg tablet 10 mg PO DAILY multivitamin Tablet 1 tab PO DAILY pravastatin 20 mg tablet 20 mg PO DAILY aspirin 81 MG tablet,chewable 81 mg PO DAILY metoprolol tartrate 25 MG tablet 25 mg PO BID magnesium oxide 400 MG tablet 400 mg PO BID pantoprazole 40 MG tablet 40 mg PO QHS gabapentin 100 mg capsule 100 mg PO QHS roflumilast 500 mcg tablet 500 mcg PO DAILY Trulicity 0.75 mg/0.5 mL pen injector 0.75 mg subcut MO ascorbic acid (vitamin C) [Vitamin C] 250 mg tablet 250 mg PO DAILY insulin glargine-yfgn 100 unit/mL (3 mL) Insulin Pen 15 unit subcut BID Qty: 0 0RF Rx Instructions: Hold if glucose less than 130 mg/dl insulin lispro [Humalog KwikPen Insulin] 100 unit/mL Insulin Pen 8 unit subcut TIDAC Rx Instructions: Hold if glucose less than 130 mg/dl acetaminophen 500 mg Tablet 1,000 mg PO Q6H PRN PRN (Reason: Pain Score 1-3) Qty: 0 0RF Rocklatan 0.02-0.005 % Drops 0 drp EACH EYE DAILY Qty: 0 0RF triamcinolone acetonide 0.1 % ointment 1 applic topical TID diltiazem HCl 180 mg capsule,ext.rel 24h degradable PO Patient Comments: [NO ORIGINAL SIG] ipratropium bromide 21 mcg (0.03 %) spray,non-aerosol INTRANASAL Patient Comments: [NO ORIGINAL SIG] insulin glargine [Lantus Solostar U-100 Insulin] 100 unit/mL (3 mL) insulin pen subcut (DME) lancets [TRUEplus Lancets] 28 gauge misc MISCELLANEOUS Breztri Aerosphere 160-9-4.8 mcg/actuation HFA aerosol inhaler inhalation Primary Care Provider: Ramone Smiley Referrals: Ramone Smiley MD [Primary Care Provider] - Activity Restrictions/Additional Instructions: Chest x-ray negative. COVID, flu, RSV negative. Your glucose 321 the lab normal gap. You are given 10 units of short acting insulin. You were started on antibiotics and steroids. Your glucose will beelevated with the steroids. Continue insulin including your sliding scale. Next dose of antibiotics steroids is tomorrow. This was sent to [facility]. Print Language: Kazakh Disposition Disposition: Home, Self Care What to do if you have Problems For any increased pain, shortness of breath, bleeding, nausea or vomiting, chestpain, or any unexpected problems, contact your Primary Care Provider. Call [facility] ([phone]) or report tothe closest Emergency Room. Call 911 if necessary. 01/07/25 1700 Cosigner Signature (if applicable): CC: Dr. Ramone Smiley MD ~ Signed [facility]-10-2025 Radiology Diagnostic study note [facility] Imaging Services [address] [place] [address] Chest PA and Lateral MR#: [id number] Acct: [id number] Name: OLGA DONALDSON Rep #: [id number] : 1945 F 80 From: Kary Darnell MD PCP: Dr. Ramone Smiley MD Status: PRE ER Study:Chest PA and Lateral Date of Exam: 01/07/25 Exam# [id number] Ordering Dr: Ethan Darnell DO EXAM: XR Chest, 2 Views CLINICAL INDICATION: COUGH TECHNIQUE: Frontal and lateral views of the chest. COMPARISON: No relevant prior studies available. FINDINGS: LUNGS AND PLEURAL SPACES: Unremarkable. No consolidation. No pneumothorax. HEART: Cardiomegaly without overt failure. MEDIASTINUM: Unremarkable. Normal mediastinal contour. BONES/JOINTS: Unremarkable. No acute fracture. RAD/Chest PA and Lateral IMPRESSION: Cardiomegaly without overt failure. Reading Location: [facility] CC: Dr. Ramone Smiley MD; Dr. Ethan Darnell DO ~ [employer] Consultant: Signed [facility]05-10-2025 Discharge summary Author Ethan Darnell [facility] Note Date/Time January 07, 2025 5:00p m [facility] Medical Records Department [address] [place] [address] Emergency Department Summary 01/07/25 MR#: [id number] Acct: [id number] Name: OLGA DNOALDSON Rep #:[id number] : 1945 80 From: Ethan Casanova PCP: Dr. Ramone Smiley MD Status:REG ER Location: ED HPI History of Present Illness Chief Complaint: Shortness of Breath Informant: patient Narrative Narrative: Presents by EMS from home 5-day history of worsening dyspnea wheeze with productive sputum. History of asthma COPD remote tobacco. No home oxygen. Wheezing with mild sputum. Status post 2 DuoNeb's by EMS states clinically feeling better. She has inhaler at home. No chest or abdominal pain. No vomiting or diarrhea. No urinary symptoms. No fever or chills. Similar symptoms with flares in the past. She is a diabetic. Prior similar symptoms: Yes PFSH PFS Medical History Fracture of hip, left, closed Coronary artery disease Paronychia of left index finger Vaginal cyst Anxiety Depression Irregular heart beat Multiple thyroid nodules Foraminal stenosis of lumbar region Lumbar spinal stenosis Diabetic retinopathy Colon polyp Thyroid goiter Hyperlipidemia Hypokalemia Microcytic anemia Neurogenic bladder Hypophosphatemia Hypercalcemia Former smoker UTI (urinary tract infection) Iron deficiency anemia Aortic stenosis Hyponatremia Urine retention Chronic renal failure, stage 3 (moderate) Cellulitis and abscess of finger, unspecified Retinopathy Peripheral artery disease Leg weakness, bilateral GERD (gastroesophageal reflux disease) Chronic idiopathic constipation COPD (chronic obstructive pulmonary disease) Polypharmacy Hypertension Carpal tunnel syndrome of right wrist Strain of right rotator cuff capsule Rhinitis Urinary retention with incomplete bladder emptying Vitamin D deficiency Asthma Pruritus Goiter, nontoxic, multinodular Anemia Diabetes Hx of venous thrombosis and embolism History of malignant neoplasm of breast Type 2 diabetes mellitus Home Medications ?Medication ?Instructions ?Recorded ?Last Taken ?Type aspirin 81 mg chewable tablet 81 mg PO DAILY HERT HEAL TH 01/21/16 08/12/23 History magnesium oxide 400 mg (241.3 mg 400 mg PO BID SUPPLEM ENT 08/16/18 08/12/23 History magnesium) tablet metoprolol tartrate 25 mg tablet 25 mg PO BID BLOOD [place] ESSURE 08/16/18 08/12/23 History pantoprazole 40 mg tablet,delayed 40 mg PO QHS ACID RE FLUX 12/02/19 08/12/23 History release empagliflozin 10 mg tablet 10 mg PO DAILY DIABETES 08/12/23 History (Jardiance) sitagliptin phosphate 50 mg tablet 50 mg PO DAILY DIAB ETES 10/18/20 08/12/23 History (Januvia) multivitamin 1 tab PO DAILY VITAMIN 12/0608/12/23 History pravastatin 20 mg tablet 20 mg PO DAILY CHOLESTEROL 0 12/06/21 08/12/23 History ascorbic acid (vitamin C) 250 mg 250 mg PO DAILY SUPPL EMENT 08/13/23 08/12/23 History tablet (Vitamin C) dulaglutide 0.75 mg/0.5 mL 0.75 mg subcut MO DIABETES 08/13/23 08/10/23 History subcutaneous pen injector ([facility]) gabapentin 100 mg capsule 100 mg PO QHS NERVE PAIN 08/12/23 History roflumilast 500 mcg tablet 500 mcg PO DAILY COPD 08/1308/12/23 History insulin glargine-yfgn 100 unit/mL 15 unit (0.15 mL) avila bcut BID 12/30/23 Unknown Rx (3 mL) subcutaneous pen diabetes-long acting insulin #0 mL insulin lispro 100 unit/mL 8 unit subcut TIDAC short a cting 12/30/23 Unknown History subcutaneous pen (Humalog KwikPen insulin (U-100) Insulin) acetaminophen 500 mg tablet 1,000 mg (2 x 500 mg) PO Q 6H PRN 01/15/24 Unknown Rx PRN Pain Score 1-3 #0 tabs netarsudil 0.02 %-latanoprost 0 drp EACH EYE DAILY #0 mL 01/15/24 Unknown Rx 0.005 % eye drops ([facility]) azithromycin 250 mg tablet 250 mg PO DAILY #4 TABLETS 01/07/25 Unknown Rx budesonide 160 mcg-glycopyr 9 inh inhalation 01/07/25 Unknown History mcg-formot 4.8 mcg/actuation HFA inhaler (Breztri Aerosphere) diltiazem HCl 180 mg mg PO 01/07/25 Unknown Histo ry capsule,extended release 24 hr, controlled insulin glargine 100 unit/mL (3 unit subcut 01/07/25 U nknown History mL) subcutaneous pen (Lantus Solostar U-100 Insulin) ipratropium bromide 21 mcg (0.03 intranasal 01/07/25 U nknown History %) nasal spray lancets 28 gauge (TRUEplus Lancets) 01/07/25 Unknown History prednisone 20 mg tablet 40 mg (2 x 20 mg) PO DAILY # 8 01/07/25 Unknown Rx TABLETS triamcinolone acetonide 0.1 % 1 applic topical TID 06/24 Unknown History topical ointment Allergy/AdvReac Type Severity Reaction Status Date / Time adhesive tape (tape) Allergy NEEDS Verified 01/07/25 14:59 FOLLOW-UP amoxicillin Allergy YEAST Verified 01/07/25 14:59 INFECTION cephalexin monohydrate (From Allergy Rash Verified 01/07/25 14:59 Keflex) clopidogrel bisulfate (From Allergy Other Verified 01/07/25 14:59 Plavix) Family History Daughter Breast cancer Father Hypertension Sister Cancer Kidney disease Mother Pancreatic cancer Surgical History History of left hip hemiarthroplasty S/P fine needle aspiration (~10/2020) H/O dilation and curettage (~07/10/20) History of Achilles tendon repair Retinopathy History of lumpectomy of left breast Social History household members: spouse Smoking Status: Former smoker alcohol intake: never substance use type: does not use caffeine: Yes what type of physical activity do you participate in: none seatbelt use: always do you feel safe at home: Yes additional social history: [employer]- retired ROS ROS ED Constitutional Constitutional ED: Denies chills, fever(s) or sweats ENT ENT ED: Denies sore throat Cardiovascular Cardiovascular: Denies chest pain, leg edema, palpitations or racing heartbeat Respiratory/Chest Respiratory/Chest: Reports cough and dyspnea; Denies dyspnea on exertion Gastrointestinal Gastrointestinal: Denies abdominal pain, diarrhea, nausea or vomiting Genitourinary Genitourinary ED: Denies dysuria, hematuria or urinary frequency Musculoskeletal Musculoskeletal: Denies back pain, extremity pain or neck pain Integumentary Denies rash or wounds Neurologic Neurologic: Denies headache(s), paresthesias or weakness EXAM Physical Exam Const Vital Signs: 01/07/25 14:56 01/07/25 14:59 Temperature 98 F Temperature Source Oral Pulse Rate 92 Respiratory Rate 34 H Respiratory Effort Normal Non-Labored Respiratory Depth Normal Respiratory Pattern Tachypnea Blood Pressure 184/70 H Blood Pressure Mean 108 Pulse Ox 99 Oxygen Delivery Method Room Air Room Air Positive well nourished and well developed General Appearance ED: well developed and NAD HEENT Reports moist mucous membranes normocephalic and atraumatic Eyes General Eye ED: Yes normal appearance of both eyes Neck full ROM Chest Wall Chest: Negative for tenderness Resp normal respiratory effort Resp Narrative: Faint expiratory wheeze right lower lobe. No distress. Effort and Inspection: symmetric chest movement; Negative for respiratory distress Cardio regular rate, regular rhythm and no murmurs Peripheral Pulses: pulses 2+ throughout GI normal to inspection, nondistended, normoactive bowel sounds and non-tender Palpation: Negative for guarding or rebound tenderness present Extremity normal to inspection General Extremety ED: Negative for edema or tenderness General Extremity: Negative for edema Neuro oriented x3 and no sensory deficits noted Sensorium / Orientation: awake and alert Skin no rashes or lesions noted and no wounds MDM MDM MDM Narrative Medical decision making narrative: Interventions / MDM: Differential diagnosis: COPD exacerbation, asthma exacerbation diabetic hyperglycemia Diagnosis considered but do not suspect: Pneumonia however x-ray negative, diabetic ketoacidosis every anion gap normal. My EKG interpretation: Sinus rhythm 91, no ST or T wave changes. QTc 467. Imaging independently reviewed and interpreted by myself: 2 view chest x-ray: Noinfiltrate or effusion. Also read by radiology. External documents reviewed: Hospitalization in November 2023 for hip fracture was on Eliquis for DVT prophylaxis postsurgery. Test considered but not ordered:N/A ED course: Vital signs stable initial triage had respiratory rate of 34 in the room she is 16. She is in no respiratory distress. Afebrile 99% on room air. Faint wheeze asthma COPD history she is a diabetic. Will start steroids 40 mg for diabetes history. Will check basic labs EKG chest x-ray. Check nasal swab. will reevaluate. 1615: Chest x-ray negative. White count 9.1 hemoglobin 10.5. Creatinine 0.9. Glucose was 321 with normal gap at 11. Discussed with patient she is on long-acting and short acting sliding scale along with Januvia. With her get steroidsI will give her 10 units of Humalog short acting. Clinically remaining stable. Awaiting viral swab. Will ambulate with a pulse ox for disposition plan. 1655: Viral swabs negative. Patient ambulated 94% on room air. Patient will check her glucose before dinner if she has her sliding scale written at home forinsulin. She understands sugars will be up with the steroids. She will be placed on 4 days of antibiotics and steroids. She will follow-up with her PCP. Strict return precaution discussed. All questions were answered. Re-evaluation: stable Disposition discussed with patient/family/significant other: Patient Case discussed with consulting clinician: N/A This note was generated with Dragon dictation software. It may contain incorrectwords, spelling, and punctuation that were not noted in checking the note beforesigning. Lab Data Attestation: I reviewed the patient's lab results. Labs: Laboratory Results - last 24 hr 01/07/25 01/07/25 15:21 16:32 WBC 9.1 RBC 3.91 L Hgb 10.5 L Hct 34.0 L MCV 87.0 MCH 26.9 L MCHC 30.9 L RDW Std Deviation 49.4 H RDW Coeff of Vijay 15.7 H Plt Count 237 MPV 11.1 Immature Gran % (Auto) 0.200 Neut % (Auto) 58.0 Lymph % (Auto) 31.8 Bacon % (Auto) 7.6 Eos % (Auto) 1.9 Baso % (Auto) 0.5 Absolute Neuts (auto) 5.3 Absolute Lymphs (auto) 2.89 Nucleated RBC % 0 Sodium 133 Potassium 3.8 Chloride 99 Carbon Dioxide 22.5 Anion Gap 11 BUN 14 Creatinine 0.90 Estim Creat Clear Calc 49.31 L Est GFR (MDRD) Non-Af 64 BUN/Creatinine Ratio 15.5 Glucose 321 H Calcium 10.3 POC Glucose 316 H Radiography Diagnostic Testing: Clinical Impression(s) from Imaging Studies Chest X-Ray 01/07/25 15:33 IMPRESSION: Cardiomegaly without overt failure. [facility] Chief Complaint: Shortness of Breath ED Provider: Ethan Darnell Dx/Rx/DC Orders Clinical Impression: Acute exacerbation of COPD with asthma, Diabetes, Cough Instructions: ED COPD Flare Prescriptions: New azithromycin 250 mg tablet 250 mg PO DAILY Qty: 4 0RF prednisone 20 mg tablet 40 mg PO DAILY Qty: 8 0RF No Action Januvia 50 mg tablet 50 mg PO DAILY Jardiance 10 mg tablet 10 mg PO DAILY multivitamin Tablet 1 tab PO DAILY pravastatin 20 mg tablet 20 mg PO DAILY aspirin 81 MG tablet,chewable 81 mg PO DAILY metoprolol tartrate 25 MG tablet 25 mg PO BID magnesium oxide 400 MG tablet 400 mg PO BID pantoprazole 40 MG tablet 40 mg PO QHS gabapentin 100 mg capsule 100 mg PO QHS roflumilast 500 mcg tablet 500 mcg PO DAILY Trulicity 0.75 mg/0.5 mL pen injector 0.75 mg subcut MO ascorbic acid (vitamin C) [Vitamin C] 250 mg tablet 250 mg PO DAILY insulin glargine-yfgn 100 unit/mL (3 mL) Insulin Pen 15 unit subcut BID Qty: 0 0RF Rx Instructions: Hold if glucose less than 130 mg/dl insulin lispro [Humalog KwikPen Insulin] 100 unit/mL Insulin Pen 8 unit subcut TIDAC Rx Instructions: Hold if glucose less than 130 mg/dl acetaminophen 500 mg Tablet 1,000 mg PO Q6H PRN PRN (Reason: Pain Score 1-3) Qty: 0 0RF Rocklatan 0.02-0.005 % Drops 0 drp EACH EYE DAILY Qty: 0 0RF triamcinolone acetonide 0.1 % ointment 1 applic topical TID diltiazem HCl 180 mg capsule,ext.rel 24h degradable PO Patient Comments: [NO ORIGINAL SIG] ipratropium bromide 21 mcg (0.03 %) spray,non-aerosol INTRANASAL Patient Comments: [NO ORIGINAL SIG] insulin glargine [Lantus Solostar U-100 Insulin] 100 unit/mL (3 mL) insulin pen subcut (DME) lancets [TRUEplus Lancets] 28 gauge misc MISCELLANEOUS Breztri Aerosphere 160-9-4.8 mcg/actuation HFA aerosol inhaler inhalation Primary Care Provider: Ramone Smiley Referrals: Ramone Smiley MD [Primary Care Provider] - Activity Restrictions/Additional Instructions: Chest x-ray negative. COVID, flu, RSV negative. Your glucose 321 the lab normal gap. You are given 10 units of short acting insulin. You were started on antibiotics and steroids. Your glucose will be elevated with the steroids. Continue insulin including your sliding scale. Next dose of antibiotics steroids is tomorrow. This was sent to [facility]. Print Language: Kazakh Disposition Disposition: Home, Self Care What to do if you have Problems For any increased pain, shortness of breath, bleeding, nausea or vomiting, chestpain, or any unexpected problems, contact your Primary Care Provider. Call [facility] ([phone]) or report to the closest Emergency Room. Call 911 if necessary. 01/07/25 1700 <Electronically signed by Ethan Casanova> Cosigner Signature (if applicable): CC: Dr. Ramone Smiley MD ~ Signed [facility] Work Phone: [phone]) 345-955505-01-2024 Progress note Author Sunny Bell [facility] December 30, 2023 12:34pm Note Date/Time December 30, 2023 12:35p [facility] Medical Records Department [address] [place] [address] Progress Note - Hospitalist 12/30/23 1228 MR#: [id number] Acct: [id number] Name: OLGA DONALDSON Rep #:[id number] : 1945 78 From: Sunny Blue PCP: Dr. Ramone Smiley MD Status:ADM IN Location: [place] [id number] Reason for Visit Reason for Visit: Diagnoses Iron deficiency anemia, unspecified (12/27/23) Hypercalcemia (12/27/23) Chronic kidney disease, stage 3 unspecified (12/27/23) Weakness (12/27/23) Fracture of unspecified part of neck of left femur, initial encounter for closedfracture (12/27/23) Unspecified fall, initial encounter (12/27/23) Objective Data Objective Data Vital Signs: Vital Signs Temp Pulse Resp BP Pulse Ox O2 Del Method O2 Flow Rate 99.2 F H 91 16 124/50 H 97 Room Air 2 12/30/23 10:02 12/30/23 10:02 12/30/23 10:02 12/30/23 10:02 12/30/23 10:02 12/30/23 10:02 12/29/23 07:09 Oxygen Flow Rate (L/min) 2 Oxygen Delivery Method Room Air Weight: 157 lb 6.561 oz Body Mass Index (BMI) 27.8 Intake & Output: Intake and Output for Last 24 Hours 12/28/23 12/29/23 12/30/23 23:59 23:59 23:59 Intake Total 1732.50 / 1732.50 2003.75 / 2002.75 700 / 700 Output Total 1850 / 2850 2300 / 2300 1450 / 1450 Balance -117.50 / -1117.50 -296.25 / -296.25 -750 / -750 Lab / Micro Data 12/30/23 06:02 12/30/23 06:02 Labs: Laboratory Results - last 24 hr 12/29/23 16:21: POC Glucose 198 H 12/29/23 21:03: POC Glucose 170 H 12/30/23 06:02: WBC 9.8, RBC 3.98 L, Hgb 10.7 L, Hct 33.8 L, MCV 84.9, MCH 26.9 L, MCHC 31.7 L, RDW Std Deviation 47.9 H, RDW Coeff of Vijay 15.5 H, Plt Count 191, MPV 11.3, Immature Gran % (Auto) 0.400, Neut % (Auto) 63.9, Lymph % (Auto) 25.3, Bacon % (Auto) 8.7, Eos % (Auto) 1.4, Baso % (Auto) 0.3, Absolute Neuts (auto) 6.3, Absolute Lymphs (auto) 2.48, Nucleated RBC % 0, Sodium 135 L, Potassium 4.4, Chloride 104, Carbon Dioxide 27.0, Anion Gap 4 L, BUN 23 H, Creatinine 1.08 H, Estim Creat Clear Calc 40.01, Est GFR (MDRD) Af Amer 63, Est GFR(MDRD) Non-Af 52 L, BUN/Creatinine Ratio 21.3 H, Glucose 127 H, Calcium 11.3 H 12/30/23 08:06: POC Glucose 129 H 12/30/23 12:04: POC Glucose 78 Physical Exam Narrative Seen and examined. Patient had soft, small volume bowel movement yesterday. Dulcolax suppository ordered She lost the balance and fall on the left hip. She denies history of osteoporosis. She does self-catheterization for history of urine retention but denies history of burning micturition. Patient is small bowel movement, but notadequate. Physical exam General: Alert, Oriented x3, Cooperative HEENT: Atraumatic, PERRLA, EOMI, Normocephalic Oral: Oral mucosa moist. No Gingival or Mucosal Lesions/ Ulcerations Neck: Supple, No JVD, Negative Carotid Bruits Chest wall/Lungs: Air entry diminished in bilateral lung bases. No crepitation/rhonchi Cardiovascular: Regular rate, Regular Rhythm, Normal S1, Normal S2, systolic murmur present. Abdomen: Bowel Sounds Present, Soft, Non Tender, Non-Distended : Serna catheter. no dysuria. No renal angle tenderness. No suprapubic tenderness. Extremities: No edema, Capillary Refill Less than 3 Seconds Skin: No rashes, No breakdown Musculoskeletal: Status post left anterior hemiarthroplasty. Surgical dressing is dry. Neurological: Cranial nerves II-XII grossly intact, DTR 2+/4. No acute focal neurological deficit. Psych/Mental Status: Normal Affect, Appropriate. Assessment & Plan Assessment/Plan (1) Fracture of hip, left, closed: (2) Weakness: (3) Hypercalcemia: PLAN: Plan Patient is a 78-year-old female who presented [facility] ED on 12/27/2023 with left hip pain after a fall at home. She got up from the couch toself catheter, got her walker turned and then lost balance and fell on her left hip. 1. Acute debility due to left impacted transcervical femoral neck fracture. ? Admit under inpatient status to [facility]. Orthopedics consulted. N.p.o. at midnight. PT/OT/case management consulted. Pain control with scheduled Tylenol, p.o. oxycodone as needed and IV Dilaudid as needed. 12/29: Waiting for pre-CERT. 2. Preoperative evaluation ? NSQIP score: Patient has average risk of serious complication, below average risk of any complication given her with factors of age, partially dependent functional status, mild systemic disease, insulin-dependent diabetes and hypertension. ? Labs/imaging: Chest x-ray on admit nonacute. No further imaging or lab workupneeded prior to procedure. ? EKG/echo: EKG in ED showed normal sinus rhythm, no ST changes. Appeared similar to last EKG from July. Last echo in 2020 showed normal EF with moderate aortic stenosis. Patient is hemodynamically stable here at rest, denies any chest pain or shortness of breath with exertion recently. No need for repeat echo prior to procedure. ? Medications: Okay to continue home beta-jefe and aspirin on day of procedure. Holding home diltiazem as noted below. Giving reduced dose of long-acting insulin on day of procedure given n.p.o. status. ? Recommendation: Patient is medically optimized for procedure. 12/27: Monitor postop CBC and BMP. Patient denies history of previous joint replacement. Continue incentive spirometry. 12/28: Patient had left anterior hemiarthroplasty. I talked to the patient's cousin over the phone who lives in [facility]. Patient is clinically doing well. Currently has Serna catheter 12/29: Dulcolax suppository ordered. Patient with small bowel movement. On sennaS and MiraLAX. 3. Mild creatinine elevation ? Creatinine 1.19 on admit, baseline creatinine around 0.8-1.0. Suspect due to mild dehydration as other labs appear somewhat hemoconcentrated. Will give 750 cc of IV fluids over 5 hours prior to procedure. Follow-up a.m. BMP and urine output. 12/27: Repeat creatinine 1.14. Improvement in creatinine. Continue IV fluid while NPO. 12/29: Last creatinine 1.08. LIA ruled out. 4. Type 2 diabetes mellitus with hyperglycemia ? Current home regimen of insulin detemir 20 units twice daily, Humalog 5 units with meals, Januvia 50 mg daily, Jardiance 10 mg daily, Trulicity weekly. Most recent A1c 8.2% on 10/24. On chart review, patient was hospitalized in July 2023. Was noted then that she had history of poorly controlled diabetes with very high insulin requirements. 12/27: Lantus 15 units twice daily and Humalog sliding scale insulin with meals while inpatient, adjust as needed. Repeat A1c 9.4%. 12/28: Glucose are high. Lantus insulin increased to 20 twice daily and Humalog scheduled 12 units 3 times daily with meals with holding parameters. 01/09: Glucose is better. 127 in BMP. 87 in noontime therefore Lantus insulin and Humalog insulin decreased. No hypoglycemia. 5. Hypercalcemia ? Calcium 11.2 on admit. Known history of mild hypercalcemia, was 10-11 during previous hospitalization in July. PTH was 153 at that time concerning for primary hyperparathyroidism. Plan was for outpatient follow-up for further workup but does not appear this was done. If remains high, would continue to haveconcern for primary hyperparathyroidism and this could be contributing to calcium withdrawal from bones leading to possible osteopenia versus osteoporosis. recommend close outpatient follow-up with endocrinology. 12/27: PTH 217. Calcium 11.2. Continue IV fluid. 6. COPD ? Not on home O2. Breathing comfortably on room air on arrival here with good saturations, no wheezing noted, no concern for acute exacerbation. Continue home inhalers and roflumilast. 12/27 denies any recent admission for COPD exacerbation 7. Chronic urinary retention with self-catheterization ? UA on admit noninfectious appearing. Given current immobility and plan for procedure, Serna catheter placed in the ED. Recommend voiding trial prior to discharge. 8. Chronic anemia ? Hemoglobin 12.4 on admit, recent baseline around 9-11. Suspect somewhat hemoconcentrated as noted above. 12/27: H&H 11.4/36.5%. 9. Hypertension ? Home regimen listed as Lopressor 25 mg twice daily and diltiazem 180 mg daily. Heart rate in the 80s in the ED, normal sinus rhythm. Unclear why patient is on both a beta-jefe and nondihydropyridine calcium channel jefe. BP elevated to the 150s to 170s on admit but suspect this is in part due to pain. Will continue Lopressor and hold diltiazem for now. 12/28: Blood pressure high systolic 172. Diltiazem resumed.On metoprolol 25 mg twice daily. Hydralazine 10 mg every 4 hourly as needed for SBP more than 180 mmHg 10. GERD ? Stable. Continue home PPI. DVT prophylaxis: Lovenox CODE STATUS: Full code, verified Expected disposition: TBD Charges/Coding Visit Charges Inpatient E&M: 24212 Subs Hosp L2 12/30/23 1234 <Electronically signed by Sunny Bell MD> Cosigner Signature (if applicable): CC: ~ Signed [facility] Work Phone: [phone]) 339-886804-30-2024 Progress note Author Sunny Bell [facility] December 29, 2023 12:47pm Note Date/Time December 29, 2023 9:3 0am [facility] Medical Records Department [address] [place] [address] Progress Note - Hospitalist 12/29/23 0929 MR#: [id number] Acct: [id number] Name: OLGA DONALDSON Rep #:[id number] : 1945 78 From: Sunny Blue PCP: Dr. Ramone Smiley MD Status:ADM IN Location: [id number] Reason for Visit Reason for Visit: Diagnoses Iron deficiency anemia, unspecified (12/27/23) Hypercalcemia (12/27/23) Chronic kidney disease, stage 3 unspecified (12/27/23) Weakness (12/27/23) Fracture of unspecified part of neck of left femur, initial encounter for closedfracture (12/27/23) Unspecified fall, initial encounter (12/27/23) Objective Data Objective Data Vital Signs: Vital Signs Temp Pulse Resp BP Pulse Ox O2 Del Method O2 Flow Rate 97.8 F 79 18 185/72 H 99 Nasal Cannula 2 12/29/23 06:25 12/29/23 07:09 12/29/23 07:09 12/29/23 06:37 12/29/23 07:09 12/29/23 07:09 12/29/23 07:09 Oxygen Flow Rate (L/min) 2 Oxygen Delivery Method Nasal Cannula Weight: 157 lb 6.561 oz Body Mass Index (BMI) 27.8 Intake & Output: Intake and Output for Last 24 Hours 12/27/23 12/28/23 12/29/23 23:59 23:59 23:59 Intake Total 1732.50 / 1732.50 1003.75 / 1003.75 Output Total 1850 / 2850 1600 / 1600 Balance -117.50 / -1117.50 -596.25 / -596.25 Lab / Micro Data 12/29/23 05:31 12/29/23 05:31 Labs: Laboratory Results - last 24 hr 12/28/23 04:35: Phosphorus 3.0 12/28/23 11:24: POC Glucose 138 H 12/28/23 15:04: POC Glucose 176 H 12/28/23 16:17: POC Glucose 209 H 12/28/23 22:36: POC Glucose 438 H 12/29/23 05:31: WBC 12.4 H, RBC 3.78 L, Hgb 10.1 L, Hct 32.5 L, MCV 86.0, MCH 26.7 L, MCHC 31.1 L, RDW Std Deviation 48.9 H, RDW Coeff of Vijay 15.7 H, Plt Count 184, MPV 11.6, Immature Gran % (Auto) 0.600, Neut % (Auto) 81.1 H, Lymph %(Auto) 9.5 L, Bacon % (Auto) 8.5, Eos % (Auto) 0.1, Baso % (Auto) 0.2, Absolute Neuts (auto) 10.1 H, Absolute Lymphs (auto) 1.18, Nucleated RBC % 0, Sodium 135 L, Potassium 4.8, Chloride 105, Carbon Dioxide 25.0, Anion Gap 5, BUN 25 H, Creatinine 1.20 H, Estim Creat Clear Calc 36.01, Est GFR (MDRD) Af Amer 56 L, Est GFR (MDRD) Non-Af 46 L, BUN/Creatinine Ratio 20.8 H, Glucose 263 H, Calcium 10.4 H Radiography Diagnostic Testing: Radiology Impression Hip/Pelvis X-Ray 12/28/23 12:45 IMPRESSION: Normal postoperative left hip metallic hip arthroplasty when compared to previous pelvis radiograph of 12/19/2023. Electronically Signed: Billy Shirley MD at 14:25 EDT , Hip X-Ray 12/28/23 14:55 IMPRESSION: Normal postop left hip arthroplasty radiographs following ORIF when compared to 12/27/2023. Electronically Signed: Billy Shirley MD at 15:13 EDT , Physical Exam Narrative Seen and examined. She lost the balance and fall on the left hip. She denies history of osteoporosis. She does self-catheterization for history of urine retention but denies history of burning micturition. Patient is small bowel movement, but notadequate. Dulcolax 10 mg oral given Physical exam General: Alert, Oriented x3, Cooperative HEENT: Atraumatic, PERRLA, EOMI, Normocephalic Oral: Oral mucosa moist. No Gingival or Mucosal Lesions/ Ulcerations Neck: Supple, No JVD, Negative Carotid Bruits Chest wall/Lungs: Air entry diminished in bilateral lung bases. No crepitation/rhonchi Cardiovascular: Regular rate, Regular Rhythm, Normal S1, Normal S2, systolic murmur present. Abdomen: Bowel Sounds Present, Soft, Non Tender, Non-Distended : Serna catheter. no dysuria. No renal angle tenderness. No suprapubic tenderness. Extremities: No edema, Capillary Refill Less than 3 Seconds Skin: No rashes, No breakdown Musculoskeletal: Status post left anterior hemiarthroplasty. Surgical dressing is dry. Neurological: Cranial nerves II-XII grossly intact, DTR 2+/4. No acute focal neurological deficit. Psych/Mental Status: Normal Affect, Appropriate. Assessment & Plan Assessment/Plan (1) Fracture of hip, left, closed: (2) Weakness: (3) Hypercalcemia: PLAN: Plan Patient is a 78-year-old female who presented [facility] ED on 12/27/2023 with left hip pain after a fall at home. She got up from the couch toself catheter, got her walker turned and then lost balance and fell on her left hip. 1. Acute debility due to left impacted transcervical femoral neck fracture. ? Admit under inpatient status to [facility]. Orthopedics consulted. N.p.o. at midnight. PT/OT/case management consulted. Pain control with scheduled Tylenol, p.o. oxycodone as needed and IV Dilaudid as needed. 2. Preoperative evaluation ? NSQIP score: Patient has average risk of serious complication, below average risk of any complication given her with factors of age, partially dependent functional status, mild systemic disease, insulin-dependent diabetes and hypertension. ? Labs/imaging: Chest x-ray on admit nonacute. No further imaging or lab workupneeded prior to procedure. ? EKG/echo: EKG in ED showed normal sinus rhythm, no ST changes. Appeared similar to last EKG from July. Last echo in 2020 showed normal EF with moderate aortic stenosis. Patient is hemodynamically stable here at rest, denies any chest pain or shortness of breath with exertion recently. No need for repeat echo prior to procedure. ? Medications: Okay to continue home beta-jefe and aspirin on day of procedure. Holding home diltiazem as noted below. Giving reduced dose of long-acting insulin on day of procedure given n.p.o. status. ? Recommendation: Patient is medically optimized for procedure. 12/27: Monitor postop CBC and BMP. Patient denies history of previous joint replacement. Continue incentive spirometry. 12/28: Patient had left anterior hemiarthroplasty. I talked to the patient's cousin over the phone who lives in [facility]. Patient is clinically doing well. Currently has Serna catheter 3. Mild creatinine elevation ? Creatinine 1.19 on admit, baseline creatinine around 0.8-1.0. Suspect due to mild dehydration as other labs appear somewhat hemoconcentrated. Will give 750 cc of IV fluids over 5 hours prior to procedure. Follow-up a.m. BMP and urine output. 12/27: Repeat creatinine 1.14. Improvement in creatinine. Continue IV fluid while NPO. 4. Type 2 diabetes mellitus with hyperglycemia ? Current home regimen of insulin detemir 20 units twice daily, Humalog 5 units with meals, Januvia 50 mg daily, Jardiance 10 mg daily, Trulicity weekly. Most recent A1c 8.2% on 10/24. On chart review, patient was hospitalized in July 2023. Was noted then that she had history of poorly controlled diabetes with very high insulin requirements. 12/27: Lantus 15 units twice daily and Humalog sliding scale insulin with meals while inpatient, adjust as needed. Repeat A1c 9.4%. 12/28: Glucose are high. Lantus insulin increased to 20 twice daily and Humalog scheduled 12 units 3 times daily with meals with holding parameters. 5. Hypercalcemia ? Calcium 11.2 on admit. Known history of mild hypercalcemia, was 10-11 during previous hospitalization in July. PTH was 153 at that time concerning for primary hyperparathyroidism. Plan was for outpatient follow-up for further workup but does not appear this was done. If remains high, would continue to have concern for primary hyperparathyroidism and this could be contributing to calcium withdrawal from bones leading to possible osteopenia versus osteoporosis. recommend close outpatient follow-up with endocrinology. 12/27: PTH 217. Calcium 11.2. Continue IV fluid. 6. COPD ? Not on home O2. Breathing comfortably on room air on arrival here with good saturations, no wheezing noted, no concern for acute exacerbation. Continue home inhalers and roflumilast. 12/27 denies any recent admission for COPD exacerbation 7. Chronic urinary retention with self-catheterization ? UA on admit noninfectious appearing. Given current immobility and plan for procedure, Serna catheter placed in the ED. Recommend voiding trial prior to discharge. 8. Chronic anemia ? Hemoglobin 12.4 on admit, recent baseline around 9-11. Suspect somewhat hemoconcentrated as noted above. 12/27: H&H 11.4/36.5%. 9. Hypertension ? Home regimen listed as Lopressor 25 mg twice daily and diltiazem 180 mg daily. Heart rate in the 80s in the ED, normal sinus rhythm. Unclear why patient is on both a beta-jefe and nondihydropyridine calcium channel jefe. BP elevated to the 150s to 170s on admit but suspect this is in part due to pain. Will continue Lopressor and hold diltiazem for now. 12/28: Blood pressure high systolic 172. Diltiazem resumed.On metoprolol 25 mg twice daily. Hydralazine 10 mg every 4 hourly as needed for SBP more than 180 mmHg 10. GERD ? Stable. Continue home PPI. DVT prophylaxis: Lovenox CODE STATUS: Full code, verified Expected disposition: TBD Charges/Coding Visit Charges Inpatient E&M: 20788 Subs Hosp L2 12/29/23 1247 <Electronically signed by Sunny Bell MD> Cosigner Signature (if applicable): CC: ~ Signed [facility] Work Phone: 1([phone] 609-187904-30-2024 Progress note Author [facility] December 29, 2023 11:56am Note Date/Time December 29, 2023 11: 56am [facility] Medical Records Department [address] [place] [id number] Progress Note - Orthopedic 12/29/23 1152 MR#: [id number] Acct: [id number] Name: OLGA DONALDSON Rep #:[id number] : 1945 78 From: Sj BHATTI PA-C PCP: Dr. Ramone Smiley MD Status:ADM IN Location: [facility]3 [id number] Subjective Subjective Patient sitting at bedside watching TV. Patient states she has no pain. She has been up walking around this morning. She denies chest pain, shortness of breath, calf pain, nausea vomiting. No other complaints at this time. Patient is hoping to go to a rehab for postop rehab. Objective Data Objective Data Vital Signs: Vital Signs Temp Pulse Resp BP Pulse Ox O2 Del Method O2 Flow Rate 98.7 F 84 18 172/91 H 96 Room Air 2 12/29/23 10:23 12/29/23 10:23 12/29/23 10:23 12/29/23 10:23 12/29/23 10:23 12/29/23 10:23 12/29/23 07:09 Oxygen Flow Rate (L/min) 2 Oxygen Delivery Method Room Air Weight: 71.4 kg Body Mass Index (BMI) 27.8 Intake & Output: Intake and Output for Last 24 Hours 12/27/23 12/28/23 12/29/23 23:59 23:59 23:59 Intake Total 1732.50 / 1732.50 1003.75 / 1003.75 Output Total 1850 / 2850 2300 / 2300 Balance -117.50 / -1117.50 -1296.25 / -1296.25 Lab / Micro Data 12/29/23 05:31 12/29/23 05:31 Labs: Laboratory Results - last 24 hr 12/28/23 11:24: POC Glucose 138 H 12/28/23 15:04: POC Glucose 176 H 12/28/23 16:17: POC Glucose 209 H 12/28/23 22:36: POC Glucose 438 H 12/29/23 05:31: WBC 12.4 H, RBC 3.78 L, Hgb 10.1 L, Hct 32.5 L, MCV 86.0, MCH 26.7 L, MCHC 31.1 L, RDW Std Deviation 48.9 H, RDW Coeff of Vijay 15.7 H, Plt Count 184, MPV 11.6, Immature Gran % (Auto) 0.600, Neut % (Auto) 81.1 H, Lymph %(Auto) 9.5 L, Bacon % (Auto) 8.5, Eos % (Auto) 0.1, Baso % (Auto) 0.2, Absolute Neuts (auto) 10.1 H, Absolute Lymphs (auto) 1.18, Nucleated RBC % 0, Sodium 135 L, Potassium 4.8, Chloride 105, Carbon Dioxide 25.0, Anion Gap 5, BUN 25 H, Creatinine 1.20 H, Estim Creat Clear Calc 36.01, Est GFR (MDRD) Af Amer 56 L, Est GFR (MDRD) Non-Af 46 L, BUN/Creatinine Ratio 20.8 H, Glucose 263 H, Calcium 10.4 H 12/29/23 06:35: POC Glucose 222 H 12/29/23 11:09: POC Glucose 281 H Radiography Diagnostic Testing: Radiology Impression Hip/Pelvis X-Ray 12/28/23 12:45 IMPRESSION: Normal postoperative left hip metallic hip arthroplasty when compared to previous pelvis radiograph of 12/19/2023. Electronically Signed: Billy Shirley MD at 14:25 EDT , Hip X-Ray 12/28/23 14:55 IMPRESSION: Normal postop left hip arthroplasty radiographs following ORIF when compared to 12/27/2023. Electronically Signed: Billy Shirley MD at 15:13 EDT , Physical Exam Narrative Exam, I found patient sitting at bedside alert oriented. Patient watching TV. Patient has no respiratory distress speaking in full sentences. Full range of motion the upper extremities. The dressing of the left hip is clean dry intact. Patient has good flexion-extension of bilateral knees. No calf tenderness. Neurovascular is otherwise intact to lower extremities. Const alert and oriented x3 General Appearance: cooperative HEENT normocephalic Eyes PERRL Resp normal respiratory effort Effort and Inspection: able to speak in complete sentences Extremity normal capillary refill Neuro CN's II-XII intact bilaterally Psych mental status grossly normal Assessment & Plan Assessment/Plan (1) Fracture of hip, left, closed: PLAN: 1. Continue all pain medications as prescribed 2. Aspirin 81 mg 1 p.o. every 12 hours x 30 days for postop DVT prophylaxis 3. Encourage incentive spirometry 4. Continue ice to the left hip, SCDs and MARIAJOSE hose 5. Ambulate as tolerated full weightbearing with walker 6. Patient to follow-up with Dr. Byrd in 2 weeks 7. Suture removal in 12 days 8. Patient can shower 12/31/2023 9. Discharge admit to ECF when cleared by medicine and approved by insurance 12/29/23 1156 <Electronically signed by Sj BHATTI PA-C> Cosigner Signature (if applicable): CC: ~ Signed [facility] Work Phone: 1([phone] 131-348404-29-2024 Consult note Author Gabriel Byrd [facility] December 28, 2023 12:59pm Note Date/Time December 28, 2023 12: 59pm [facility] Medical Records Department [address] [place] [address] Consultation - Orthopedics 12/28/23 1252 MR#: [id number] Acct: [id number] Name: OLGA DONALDSON Rep #:[id number] : 1945 78 From: Gabriel Blue PCP: Dr. Ramone Smiley MD Status:ADM IN [id number] HPI Consult Data Date of Consult: 12/28/23 HPI Narrative Reason for Consultation: left hip pain HPI Narrative: OLGA DONALDSON, is a 78 F with extensive medical history who presents today with left hip pain. Patient notes that she has had multiple falls recently and uses a walker at home. Yesterday while she was getting up out of a chair she lost her balance and fell when she was unable to catch herself. Currently she reports 6 out of 10 pain worse with motion better with immobilization in the left hip and thigh. She denies any associated new numbness and tingling distally. She reports her chronic paresthesias associated with previous ankle surgery. She was seen and evaluated in the emergency department found to have afemoral neck fracture. She was optimized by medicine overnight. She lives at home with her . She reports increased dependence on the walker over the last several months in relation to falls. She denies any previous DVTs or PEs. [facility] Medical History Anemia Anxiety Aortic stenosis Asthma Carpal tunnel syndrome of right wrist Cellulitis and abscess of finger, unspecified Chronic idiopathic constipation Chronic renal failure, stage 3 (moderate) Colon polyp COPD (chronic obstructive pulmonary disease) Coronary artery disease Depression Diabetes Diabetic retinopathy Foraminal stenosis of lumbar region Former smoker GERD (gastroesophageal reflux disease) Goiter, nontoxic, multinodular History of malignant neoplasm of breast Hx of venous thrombosis and embolism Hypercalcemia Hyperlipidemia Hypertension Hypokalemia Hyponatremia Hypophosphatemia Iron deficiency anemia Irregular heart beat Leg weakness, bilateral Lumbar spinal stenosis Microcytic anemia Multiple thyroid nodules Neurogenic bladder Paronychia of left index finger Peripheral artery disease Polypharmacy Pruritus Retinopathy Rhinitis Strain of right rotator cuff capsule Thyroid goiter Type 2 diabetes mellitus Urinary retention with incomplete bladder emptying Urine retention UTI (urinary tract infection) Vaginal cyst Vitamin D deficiency Home Medications aspirin 81 mg chewable tablet 81 mg PO DAILY [facility] 01/21/16 [History Last Taken 08/12/23] albuterol sulfate 90 mcg/actuation aerosol inhaler 2 puff inhalation Q4H PRN Sob&/Or Wheezing 08/16/18 [History Last Taken 07/10/20 06:30] diltiazem HCl 180 mg tablet,extended release 24 hr 180 mg PO DAILY BLOOD PRESSURE 08/16/18 [History Last Taken 08/12/23] magnesium oxide 400 mg (241.3 mg magnesium) tablet 400 mg PO BID SUPPLEMENT 08/16/18 [History Last Taken 08/12/23] metoprolol tartrate 25 mg tablet 25 mg PO BID BLOOD PRESSURE 08/16/18 [History Last Taken 08/12/23] pantoprazole 40 mg tablet,delayed release 40 mg PO QHS ACID REFLUX 12/02/19 [History Last Taken 08/12/23] empagliflozin 10 mg tablet (Jardiance) 10 mg PO DAILY DIABETES 10/18/20 [History Last Taken 08/12/23] sitagliptin phosphate 50 mg tablet (Januvia) 50 mg PO DAILY DIABETES 10/18/20 [History Last Taken 08/12/23] budesonide-formoterol HFA 160 mcg-4.5 mcg/actuation aerosol inhaler (Symbicort) 2 puff inhalation BID 12/06/21 [History Last Taken 08/12/23] multivitamin 1 tab PO DAILY 12/06/21 [History Last Taken 08/12/23] pravastatin 20 mg tablet 20 mg PO DAILY CHOLESTEROL 12/06/21 [History Last Taken 08/12/23] ascorbic acid (vitamin C) 250 mg tablet (Vitamin C) 250 mg PO DAILY SUPPLEMENT 08/13/23 [History Last Taken 08/12/23] azelastine 137 mcg (0.1 %) nasal spray aerosol 137 mcg intranasal BID RUNNY NOSE08/13/23 [History Last Taken 08/12/23] cod liver oil 1 cap PO DAILY SUPPLEMENT 08/13/23 [History Last Taken 08/12/23] dulaglutide 0.75 mg/0.5 mL subcutaneous pen injector (Trulicity) 0.75 mg subcut MO DIABETES 08/13/23 [History Last Taken 08/10/23] fiber 1 cap PO DAILY CONSTIPATION 08/13/23 [History Last Taken 08/12/23] gabapentin 100 mg capsule 100 mg PO QHS NERVE PAIN 08/13/23 [History Last Taken 08/12/23] roflumilast 500 mcg tablet 500 mcg PO DAILY COPD 08/13/23 [History Last Taken 08/12/23] insulin aspart U-100 100 unit/mL subcutaneous solution 5 unit (0.05 mL) subcut BIDCM DIABETES #10 mL 08/17/23 [Rx Last Taken 08/12/23] insulin detemir U-100 100 unit/mL (3 mL) subcutaneous pen 20 unit (0.2 mL) subcut BIDCM DIABETES #15 mL 08/17/23 [Rx Last Taken 08/12/23] Allergy/AdvReac Type Severity Reaction Status Date / Time adhesive tape [tape] Allergy NEEDS Verified 12/27/23 22:08 FOLLOW-UP amoxicillin Allergy YEAST Verified 12/27/23 22:08 INFECTION cephalexin monohydrate Allergy Rash Verified 12/27/23 22:08 [From Keflex] clopidogrel bisulfate Allergy Other Verified 12/27/23 22:08 [From Plavix] Family History Daughter Breast cancer Father Hypertension Sister Cancer Kidney disease Mother Pancreatic cancer Surgical History H/O dilation and curettage (~07/10/20) History of Achilles tendon repair History of lumpectomy of left breast Retinopathy S/P fine needle aspiration (~10/2020) Social History household members: spouse Smoking Status: Former smoker alcohol intake: never substance use type: does not use caffeine: Yes what type of physical activity do you participate in: none seatbelt use: always do you feel safe at home: Yes additional social history: [employer]- retired ROS ROS Narrative 14 point review of systems not mentioned in the HPI is negative. Vital Signs Vital Signs Vital Signs: 12/27/23 22:06 12/27/23 22:24 12/27/23 23:42 Temperature 98.1 F 97.5 F L Temperature Source Temporal Pulse Rate 82 77 Respiratory Rate 16 20 H Respiratory Effort Normal Non-Labored Respiratory Depth Normal Respiratory Pattern Normal Blood Pressure 173/72 H 159/59 H Blood Pressure Mean 105 92 Blood Pressure Source Blood Pressure Position Blood Pressure Location Pulse Ox 98 97 Oxygen Delivery Method Room Air Room Air 12/28/23 00:39 12/28/23 00:57 12/28/23 01:25 Temperature 98.1 F Temperature Source Oral Pulse Rate 76 Respiratory Rate 16 Respiratory Effort Normal Non-Labored Respiratory Depth Normal Respiratory Pattern Normal Blood Pressure 153/59 H Blood Pressure Mean 90 Blood Pressure Source Monitor Blood Pressure Position Semi-Fowlers Blood Pressure Location Right Arm Pulse Ox 95 93 Oxygen Delivery Method Room Air Room Air Room Air 12/28/23 06:34 12/28/23 06:59 12/28/23 07:43 Temperature 98.2 F 97.9 F Temperature Source Oral Oral Pulse Rate 77 81 Respiratory Rate 18 18 Respiratory Effort Respiratory Depth Respiratory Pattern Blood Pressure 139/51 H 130/52 H Blood Pressure Mean 80 78 Blood Pressure Source Monitor Monitor Blood Pressure Position Semi-Fowlers Semi-Fowlers Blood Pressure Location Right Arm Right Arm Pulse Ox 95 92 96 Oxygen Delivery Method Room Air Room Air Room Air 12/28/23 07:49 12/28/23 11:27 Temperature 98.2 F Temperature Source Oral Pulse Rate 81 80 Respiratory Rate 18 Respiratory Effort Respiratory Depth Respiratory Pattern Blood Pressure 147/60 H Blood Pressure Mean 89 Blood Pressure Source Monitor Blood Pressure Position Semi-Fowlers Blood Pressure Location Right Arm Pulse Ox 93 Oxygen Delivery Method Room Air Weight Weight: 157 lb 6.561 oz Body Mass Index (BMI) 27.8 Physical Exam Const alert and oriented x3 General Appearance: cooperative HEENT normocephalic Eyes PERRL Neck no JVD Resp normal respiratory effort Cardio Cardio Narrative: Regular pulse rate GI non-distended Extremity Extremity Narrative: Left lower extremity: Skin clean, dry, and intact. Limb is shortened and externally rotated Motor is intact dorsiflexion, EHL and plantar flexion. Sensation is intact to light touch saphenous, shalonda,l superficial peroneal, deep peroneal and tibial distributions. Calves are soft and supple. Skin no rashes or lesions noted and no wounds Neuro CN's II-XII intact bilaterally Psych affect normal Medical Records Data Attestation: I reviewed the patient's medical records Lab / Micro Data Attestation: I reviewed the patient's lab results. 12/28/23 04:35 12/28/23 04:35 Labs: Laboratory Results - last 24 hr 12/27/23 22:35: WBC 8.2, RBC 4.67, Hgb 12.4, Hct 39.8, MCV 85.2, MCH 26.6 L, MCHC 31.2 L, RDW Std Deviation 47.0 H, RDW Coeff of Vijay 15.5 H, Plt Count 237, MPV 11.5, Immature Gran % (Auto) 1.000 H, Neut % (Auto) 51.7, Lymph % (Auto) 37.1, Bacon % (Auto) 6.6, Eos % (Auto) 3.1, Baso % (Auto) 0.5, Absolute Neuts (auto) 4.2, Absolute Lymphs (auto) 3.04, Nucleated RBC % 0, PT Cancelled, INR Cancelled, APTT Cancelled, Sodium 136, Potassium 4.2, Chloride 103, Carbon Dioxide 29.0, Anion Gap 4 L, BUN 22 H, Creatinine 1.19 H, Estim Creat Clear Calc37.33, Est GFR (MDRD) Af Amer 56 L, Est GFR (MDRD) Non-Af 46 L, BUN/Creatinine Ratio 18.5, Glucose 254 H, Hemoglobin A1c 9.4 H, Calcium 11.2 H 12/27/23 23:24: PT 13.7, INR 1.1, APTT 27.3 12/28/23 00:56: POC Glucose 212 H 12/28/23 04:35: WBC 11.3 H, RBC 4.30, Hgb 11.4 L, Hct 36.5 L, MCV 84.9, MCH 26.5L, MCHC 31.2 L, RDW Std Deviation 46.1 H, RDW Coeff of Vijay 15.3 H, Plt Count 215, MPV 11.1, Sodium 139, Potassium 4.5, Chloride 106, Carbon Dioxide 27.0, Anion Gap 6, BUN 23 H, Creatinine 1.14 H, Estim Creat Clear Calc 37.90, Est GFR (MDRD) Af Amer 59 L, Est GFR (MDRD) Non-Af 49 L, BUN/Creatinine Ratio 20.2 H, Glucose 270 H, Calcium 11.2 H, Phosphorus 3.0, PTH Intact 177.6 H, Blood Type B POSITIVE, Antibody Screen NEGATIVE 12/28/23 06:41: POC Glucose 217 H 12/28/23 11:24: POC Glucose 138 H Imaging Radiology Impression Chest X-Ray 12/27/23 23:05 IMPRESSION: Normal x-ray examination of the chest. Electronically Signed: Weston Patel MD at 23:29 EDT Reading Location ID and State: [email or web address] Tel , Service support , Hip/Pelvis X-Ray 12/27/23 23:05 IMPRESSION: Acute impacted fracture of the transcervical femoral neck. Electronically Signed: Weston Patel MD at 23:30 EDT Reading Location ID and State: [id number] [email or web address] Tel , Service support , Assessment & Plan Assessment/Plan (1) Fracture of hip, left, closed: PLAN: Natural history of the disease process and treatment options were discussed with the patient as well as her . We discussed open reduction internal fixation/percutaneous pinning, partial hip replacement and total replacement. Based on patient's age and residual joint space on radiographs I did recommend partial replacement as well as appropriate treatment option. Patient demonstrates an understanding of risk including but limited to blood loss, DVTs, PEs, nervous damage, fashion, the risk of anesthesia include loss oflife. Fractures intraoperatively as well as postoperatively as well as dislocations and instability are possibility. Patient understands risk of surgery as well as alternatives and does wish to proceed with the recommended partial replacement today. Antibiotics on-call to the operating room. Patient has been optimized for surgery. Additionally, we discussed the patient's falls and she will need to have these addressed postoperatively likely with her rehab. Patient's projected recovery will likely require penitentiary or intensive inpatient rehabilitation prior to discharge back home. (2) Falls: (3) Weakness: (4) Microcytic anemia: (5) Chronic renal failure, stage 3 (moderate): QUALIFIERS: Chronic kidney disease stage 3 subtype: unspecified whether 3a or 3b Qualified Code(s): N18.30 - Chronic kidney disease, stage 3 unspecified 12/28/23 1259 <Electronically signed by Gabriel Byrd MD> Cosigner Signature (if applicable): CC: Dr. Ramone Smiley MD~ Signed [facility] Work Phone: 1(426) 375-516804-29-2024 Procedure [facility] 12-28-2023 Progress note Author Sunny Bell [facility] December 28, 2023 11:23am Note Date/Time December 28, 2023 9:5 2am [facility] Medical Records Department [address] [place] [address] Progress Note - Hospitalist 12/28/23 0949 MR#: [id number] Acct: [id number] Name: OLGA DONALDSON Rep #:[id number] : 1945 78 From: Sunny Blue PCP: Dr. Ramone Smiley MD Status:ADM IN Location: [address] Reason for Visit Reason for Visit: Diagnoses Hypercalcemia (12/27/23) Weakness (12/27/23) Fracture of unspecified part of neck of left femur, initial encounter for closedfracture (12/27/23) Objective Data Objective Data Vital Signs: Vital Signs Temp Pulse Resp BP Pulse Ox O2 Del Method 97.9 F 81 18 130/52 H 96 Room Air 12/28/23 07:43 12/28/23 07:49 12/28/23 07:43 12/28/23 07:43 12/28/23 07:43 12/28/23 07:43 Oxygen Delivery Method Room Air Weight: 157 lb 6.561 oz Body Mass Index (BMI) 27.8 Intake & Output: Intake and Output for Last 24 Hours 12/26/23 12/27/23 12/28/23 23:59 23:59 23:59 Intake Total 1000 / 1000 Output Total 1300 / 1300 Balance -300 / -300 Lab / Micro Data 12/28/23 04:35 12/28/23 04:35 Labs: Laboratory Results - last 24 hr 12/27/23 22:35: WBC 8.2, RBC 4.67, Hgb 12.4, Hct 39.8, MCV 85.2, MCH 26.6 L, MCHC 31.2 L, RDW Std Deviation 47.0 H, RDW Coeff of Vijay 15.5 H, Plt Count 237, MPV 11.5, Immature Gran % (Auto) 1.000 H, Neut % (Auto) 51.7, Lymph % (Auto) 37.1, Bacon % (Auto) 6.6, Eos % (Auto) 3.1, Baso % (Auto) 0.5, Absolute Neuts (auto) 4.2, Absolute Lymphs (auto) 3.04, Nucleated RBC % 0, PT Cancelled, INR Cancelled, APTT Cancelled, Sodium 136, Potassium 4.2, Chloride 103, Carbon Dioxide 29.0, Anion Gap 4 L, BUN22 H, Creatinine 1.19 H, Estim Creat Clear Calc 37.33, Est GFR (MDRD) Af Amer 56L, Est GFR (MDRD) Non-Af 46 L, BUN/Creatinine Ratio 18.5, Glucose 254 H, Hemoglobin A1c 9.4 H, Calcium 11.2 H 12/27/23 23:24: PT 13.7, INR 1.1, APTT 27.3 12/28/23 00:56: POC Glucose 212 H 12/28/23 04:35: WBC 11.3 H, RBC 4.30, Hgb 11.4 L, Hct 36.5 L, MCV 84.9, MCH 26.5L, MCHC 31.2 L, RDW Std Deviation 46.1 H, RDW Coeff of Vijay 15.3 H, Plt Count 215, MPV 11.1, Sodium 139, Potassium 4.5, Chloride 106, Carbon Dioxide 27.0, Anion Gap 6, BUN 23 H, Creatinine 1.14 H, Estim Creat Clear Calc 37.90, Est GFR (MDRD) Af Amer 59 L, Est GFR (MDRD) Non-Af 49 L, BUN/Creatinine Ratio 20.2 H, Glucose 270 H, Calcium 11.2 H, PTH Intact 177.6 H, Blood Type B POSITIVE, Antibody Screen NEGATIVE 12/28/23 06:41: POC Glucose 217 H Radiography Diagnostic Testing: Radiology Impression Chest X-Ray 12/27/23 23:05 IMPRESSION: Normal x-ray examination of the chest. Electronically Signed: Weston Patel MD at 23:29 EDT Reading Location ID and State: [id number] [email or web address] Tel , Service support , Hip/Pelvis X-Ray 12/27/23 23:05 IMPRESSION: Acute impacted fracture of the transcervical femoral neck. Electronically Signed: Weston Patel MD at 23:30 EDT , Physical Exam Narrative Seen and examined. She lost the balance and fall on the left hip. She denies history of osteoporosis. She does self-catheterization for history of urine retention but denies history of burning micturition. Physical exam General: Alert, Oriented x3, Cooperative HEENT: Atraumatic, PERRLA, EOMI, Normocephalic Oral: Oral mucosa moist. No Gingival or Mucosal Lesions/ Ulcerations Neck: Supple, No JVD, Negative Carotid Bruits Chest wall/Lungs: Air entry diminished in bilateral lung bases. No crepitation/rhonchi Cardiovascular: Regular rate, Regular Rhythm, Normal S1, Normal S2, systolic murmur present. Abdomen: Bowel Sounds Present, Soft, Non Tender, Non-Distended : No dysuria. No renal angle tenderness. No suprapubic tenderness. Extremities: No edema, Capillary Refill Less than 3 Seconds Skin: No rashes, No breakdown Musculoskeletal: Left lower extremity flexed, short and externally rotated. Tenderness present over left hip greater trochanter. No Tenderness to Palpationof other joints or Extremities. Neurological: Cranial nerves II-XII grossly intact, DTR 2+/4. No acute focal neurological deficit. Psych/Mental Status: Normal Affect, Appropriate. Assessment & Plan Assessment/Plan (1) Fracture of hip, left, closed: (2) Weakness: (3) Hypercalcemia: PLAN: Plan Patient is a 78-year-old female who presented [facility] ED on 12/27/2023 with left hip pain after a fall at home. She got up from the couch toself catheter, got her walker turned and then lost balance and fell on her left hip. 1. Acute debility due to left impacted transcervical femoral neck fracture. ? Admit under inpatient status to [facility]. Orthopedics consulted. N.p.o. at midnight. PT/OT/case management consulted. Pain control with scheduled Tylenol, p.o. oxycodone as needed and IV Dilaudid as needed. 2. Preoperative evaluation ? NSQIP score: Patient has average risk of serious complication, below average risk of any complication given her with factors of age, partially dependent functional status, mild systemic disease, insulin-dependent diabetes and hypertension. ? Labs/imaging: Chest x-ray on admit nonacute. No further imaging or lab workupneeded prior to procedure. ? EKG/echo: EKG in ED showed normal sinus rhythm, no ST changes. Appeared similar to last EKG from July. Last echo in 2020 showed normal EF with moderate aortic stenosis. Patient is hemodynamically stable here at rest, denies any chest pain or shortness of breath with exertion recently. No need for repeat echo prior to procedure. ? Medications: Okay to continue home beta-jefe and aspirin on day of procedure. Holding home diltiazem as noted below. Giving reduced dose of long-acting insulin on day of procedure given n.p.o. status. ? Recommendation: Patient is medically optimized for procedure. 12/27: Monitor postop CBC and BMP. Patient denies history of previous joint replacement. Continue incentive spirometry. 3. Mild creatinine elevation ? Creatinine 1.19 on admit, baseline creatinine around 0.8-1.0. Suspect due to mild dehydration as other labs appear somewhat hemoconcentrated. Will give 750 cc of IV fluids over 5 hours prior to procedure. Follow-up a.m. BMP and urine output. 12/27: Repeat creatinine 1.14. Improvement in creatinine. Continue IV fluid while NPO. 4. Type 2 diabetes mellitus with hyperglycemia ? Current home regimen of insulin detemir 20 units twice daily, Humalog 5 units with meals, Januvia 50 mg daily, Jardiance 10 mg daily, Trulicity weekly. Most recent A1c 8.2% on 10/24. On chart review, patient was hospitalized in July 2023. Was noted then that she had history of poorly controlled diabetes with very high insulin requirements. 12/27: Lantus 15 units twice daily and Humalog sliding scale insulin with meals while inpatient, adjust as needed. Repeat A1c 9.4%. 5. Hypercalcemia ? Calcium 11.2 on admit. Known history of mild hypercalcemia, was 10-11 during previous hospitalization in July. PTH was 153 at that time concerning for primary hyperparathyroidism. Plan was for outpatient follow-up for further workup but does not appear this was done. If remains high, would continue to have concern for primary hyperparathyroidism and this could be contributing to calcium withdrawal from bones leading to possible osteopenia versus osteoporosis. recommend close outpatient follow-up with endocrinology. 12/27: PTH 217. Calcium 11.2. Continue IV fluid. 6. COPD ? Not on home O2. Breathing comfortably on room air on arrival here with good saturations, no wheezing noted, no concern for acute exacerbation. Continue home inhalers and roflumilast. 12/27 denies any recent admission for COPD exacerbation 7. Chronic urinary retention with self-catheterization ? UA on admit noninfectious appearing. Given current immobility and plan for procedure, Serna catheter placed in the ED. Recommend voiding trial prior to discharge. 8. Chronic anemia ? Hemoglobin 12.4 on admit, recent baseline around 9-11. Suspect somewhat hemoconcentrated as noted above. 12/27: H&H 11.4/36.5%. 9. Hypertension ? Home regimen listed as Lopressor 25 mg twice daily and diltiazem 180 mg daily. Heart rate in the 80s in the ED, normal sinus rhythm. Unclear why patient is on both a beta-jefe and nondihydropyridine calcium channel jefe. BP elevated to the 150s to 170s on admit but suspect this is in part due to pain. Will continue Lopressor and hold diltiazem for now. 10. GERD ? Stable. Continue home PPI. DVT prophylaxis: Lovenox CODE STATUS: Full code, verified Expected disposition: TBD Charges/Coding Visit Charges Inpatient E&M: 99318 Subs Hosp L2 12/28/23 1123 <Electronically signed by Sunny Bell MD> Cosigner Signature (if applicable): CC: ~ Signed [facility] Work Phone: [phone] History and physical note Author Nestor Bartlett [facility] December 28, 2023 4:47am Note Date/Time December 27, 2023 11: 30pm [facility] Medical Records Department [address] [place] [address] H&P Exam - Hospitalist 12/27/23 2330 MR#: [id number] Acct: [id number] Name: OLGA DONALDSON Rep #:[id number] : 1945 78 From: Nestor roman DO PCP: Dr. Ramone Smiley MD Status:ADM IN Location: KS3 RI284-1 HPI - General General Date of Admission: 12/27/23 Date of Service: 12/27/23 Chief Complaint: Left hip fracture HPI Narrative OLGA DONALDSON, is a 78 F who presented to [facility] ED on 12/27/2023 with left hip pain after a fall at home. Patient lives at home with her , does use a walker for ambulation but otherwise has decent functional status. Patient stated she was getting up off the couch to go cath herself when she turned and lost her balance and fell on her left hip. She was found on exam in the ED to have left leg shortening with external rotation. X-ray confirmed an acute impacted fracture of the transcervical femoral neck. ED physician spoke with Dr. Byrd and tentative plan is for OR tomorrow for surgery. Hospitalist was then contacted for admission. I saw the patient at bedside in the ED. She received pain medication on arrivalto the ED which was helpful for her. She was sitting up fairly comfortably in bed, conversing normally, in no acute distress. She denied any hip or leg pain currently when still but does have significant pain with any movement. States that her last surgery that she remembers was approximate 30 years ago when she apparently had something done on either her right hip or knee. She is not awareof any prior reactions to anesthesia. She does have history of COPD, is not on home O2. She is breathing comfortably on room air with no wheezing noted today. Has been taking her home inhalers as prescribed. Also has a history of type 2 diabetes mellitus. Last A1c was 8.2% on 10/26/2023, previous A1c values in 2022 were in the 7-8 range. Home diabetes regimen includes insulin detemir 20 units twice daily, insulin aspart 5 units with meals, Januvia, Jardiance and Trulicity. She reports compliance with her home regimen. Has been taking all other home medications as prescribed. Labs here notable for hemoglobin 12.4 (previous baseline 9-11), normal WBC count, platelets 237, INR 1.1, creatinine 1.19 (slightly up from baseline 0.8-1.0), BMP otherwise normal, glucose 254, calcium 11.2. Patient will be admitted for further management. [facility] Medical History Anemia Anxiety Aortic stenosis Asthma Carpal tunnel syndrome of right wrist Cellulitis and abscess of finger, unspecified Chronic idiopathic constipation Chronic renal failure, stage 3 (moderate) Colon polyp COPD (chronic obstructive pulmonary disease) Coronary artery disease Depression Diabetes Diabetic retinopathy Foraminal stenosis of lumbar region Former smoker GERD (gastroesophageal reflux disease) Goiter, nontoxic, multinodular History of malignant neoplasm of breast Hx of venous thrombosis and embolism Hypercalcemia Hyperlipidemia Hypertension Hypokalemia Hyponatremia Hypophosphatemia Iron deficiency anemia Irregular heart beat Leg weakness, bilateral Lumbar spinal stenosis Microcytic anemia Multiple thyroid nodules Neurogenic bladder Paronychia of left index finger Peripheral artery disease Polypharmacy Pruritus Retinopathy Rhinitis Strain of right rotator cuff capsule Thyroid goiter Type 2 diabetes mellitus Urinary retention with incomplete bladder emptying Urine retention UTI (urinary tract infection) Vaginal cyst Vitamin D deficiency Home Medications aspirin 81 mg chewable tablet 81 mg PO DAILY [facility] 01/21/16 [History Last Taken 08/12/23] albuterol sulfate 90 mcg/actuation aerosol inhaler 2 puff inhalation Q4H PRN Sob&/Or Wheezing 08/16/18 [History Last Taken 07/10/20 06:30] diltiazem HCl 180 mg tablet,extended release 24 hr 180 mg PO DAILY BLOOD PRESSURE 08/16/18 [History Last Taken 08/12/23] magnesium oxide 400 mg (241.3 mg magnesium) tablet 400 mg PO BID SUPPLEMENT 08/16/18 [History Last Taken 08/12/23] metoprolol tartrate 25 mg tablet 25 mg PO BID BLOOD PRESSURE 08/16/18 [History Last Taken 08/12/23] pantoprazole 40 mg tablet,delayed release 40 mg PO QHS ACID REFLUX 12/02/19 [History Last Taken 08/12/23] empagliflozin 10 mg tablet (Jardiance) 10 mg PO DAILY DIABETES 10/18/20 [History Last Taken 08/12/23] sitagliptin phosphate 50 mg tablet (Januvia) 50 mg PO DAILY DIABETES 10/18/20 [History Last Taken 08/12/23] budesonide-formoterol HFA 160 mcg-4.5 mcg/actuation aerosol inhaler (Symbicort) 2 puff inhalation BID 12/06/21 [History Last Taken 08/12/23] multivitamin 1 tab PO DAILY 12/06/21 [History Last Taken 08/12/23] pravastatin 20 mg tablet 20 mg PO DAILY CHOLESTEROL 12/06/21 [History Last Taken 08/12/23] ascorbic acid (vitamin C) 250 mg tablet (Vitamin C) 250 mg PO DAILY SUPPLEMENT 08/13/23 [History Last Taken 08/12/23] azelastine 137 mcg (0.1 %) nasal spray aerosol 137 mcg intranasal BID RUNNY NOSE08/13/23 [History Last Taken 08/12/23] cod liver oil 1 cap PO DAILY SUPPLEMENT 08/13/23 [History Last Taken 08/12/23] dulaglutide 0.75 mg/0.5 mL subcutaneous pen injector (Trulicity) 0.75 mg subcut MO DIABETES 08/13/23 [History Last Taken 08/10/23] fiber 1 cap PO DAILY CONSTIPATION 08/13/23 [History Last Taken 08/12/23] gabapentin 100 mg capsule 100 mg PO QHS NERVE PAIN 08/13/23 [History Last Taken 08/12/23] roflumilast 500 mcg tablet 500 mcg PO DAILY COPD 08/13/23 [History Last Taken 08/12/23] insulin aspart U-100 100 unit/mL subcutaneous solution 5 unit (0.05 mL) subcut BIDCM DIABETES #10 mL 08/17/23 [Rx Last Taken 08/12/23] insulin detemir U-100 100 unit/mL (3 mL) subcutaneous pen 20 unit (0.2 mL) subcut BIDCM DIABETES #15 mL 08/17/23 [Rx Last Taken 08/12/23] Allergy/AdvReac Type Severity Reaction Status Date / Time adhesive tape [tape] Allergy NEEDS Verified 12/27/23 22:08 FOLLOW-UP amoxicillin Allergy YEAST Verified 12/27/23 22:08 INFECTION cephalexin monohydrate Allergy Rash Verified 12/27/23 22:08 [From Keflex] clopidogrel bisulfate Allergy Other Verified 12/27/23 22:08 [From Plavix] Family History Daughter Breast cancer Father Hypertension Sister Cancer Kidney disease Mother Pancreatic cancer Surgical History H/O dilation and curettage (~07/10/20) History of Achilles tendon repair History of lumpectomy of left breast Retinopathy S/P fine needle aspiration (~10/2020) Social History household members: spouse Smoking Status: Former smoker alcohol intake: never substance use type: does not use caffeine: Yes what type of physical activity do you participate in: none seatbelt use: always do you feel safe at home: Yes additional social history: [employer]- retired ROS Constitutional Constitutional: Denies chills, fatigue, fever(s) or weakness Eyes Eyes: Denies change in vision Cardiovascular Cardiovascular: Denies chest pain Respiratory/Chest Respiratory/Chest: Denies shortness of breath at rest Gastrointestinal Gastrointestinal: Denies abdominal pain Musculoskeletal Musculoskeletal: Reports joint pain; Denies back pain Vital Signs Vital Signs Vital Signs: 12/27/23 22:06 12/27/23 22:24 Temperature 98.1 F Temperature Source Temporal Pulse Rate 82 Respiratory Rate 16 Respiratory Effort Normal Non-Labored Respiratory Depth Normal Respiratory Pattern Normal Blood Pressure 173/72 H Blood Pressure Mean 105 Pulse Ox 98 Oxygen Delivery Method Room Air Room Air Weight Weight: 75.6 kg Body Mass Index (BMI) 29.5 Physical Exam Const alert, oriented x3 and no apparent distress Constitutional Narrative: Pleasant elderly female, sitting up comfortably in bed, conversing normally, in no acute distress. General Appearance: cooperative and comfortable HEENT normocephalic, head/scalp atraumatic, hearing grossly normal bilaterally and nasal mucous membranes and turbinates normal Eyes PERRL, EOMs intact bilaterally and conjunctivae normal Neck full ROM Chest inspection of chest normal Resp normal respiratory effort, normal air movement, no use of accessory muscles and clear to auscultation bilaterally Auscultation: Negative for crackles or wheezes Cardio regular rate, regular rhythm, no murmurs and peripheral pulses 2+ throughout GI normal to inspection, nondistended, normoactive bowel sounds, soft to palpation,non-tender and non-distended Back/Spine normal ROM Extremity Extremity Narrative: Left lower extremity appears shortened and externally rotated on visual exam. Skin no rashes or lesions noted Neuro Speech: speech normal Psych mental status grossly normal Results Lab / Micro Data 12/27/23 22:35 12/27/23 22:35 Labs: Laboratory Results - last 24 hr 12/27/23 22:35: WBC 8.2, RBC 4.67, Hgb 12.4, Hct 39.8, MCV 85.2, MCH 26.6 L, MCHC 31.2 L, RDW Std Deviation 47.0 H, RDW Coeff of Vijay 15.5 H, Plt Count 237, MPV 11.5, Immature Gran % (Auto) 1.000 H, Neut % (Auto) 51.7, Lymph % (Auto) 37.1, Bacon % (Auto) 6.6, Eos % (Auto) 3.1, Baso % (Auto) 0.5, Absolute Neuts (auto) 4.2, Absolute Lymphs (auto) 3.04, Nucleated RBC % 0, PT Cancelled, INR Cancelled, APTT Cancelled, Sodium 136, Potassium 4.2, Chloride 103, Carbon Dioxide 29.0, Anion Gap 4 L, BUN 22 H, Creatinine 1.19 H, Estim Creat Clear Calc37.33, Est GFR (MDRD) Af Amer 56 L, Est GFR (MDRD) Non-Af 46 L, BUN/Creatinine Ratio 18.5, Glucose 254 H, Calcium 11.2 H Assessment & Plan Assessment/Plan (1) Fracture of hip, left, closed: (2) Weakness: (3) Hypercalcemia: PLAN: Plan Patient is a 78-year-old female who presented [facility] ED on 12/27/2023 with left hip pain after a fall at home. 1. Left femoral neck fracture ? Admit under inpatient status to [facility]. Orthopedics consulted. N.p.o. at midnight. Preop evaluation as noted below. PT/OT/case management consulted. Pain control with scheduled Tylenol, p.o. oxycodone as needed and IV Dilaudid asneeded. 2. Preoperative evaluation ? NSQIP score: Patient has average risk of serious complication, below average risk of any complication given her with factors of age, partially dependent functional status, mild systemic disease, insulin-dependent diabetes and hypertension. ? Labs/imaging: Chest x-ray on admit nonacute. No further imaging or lab workupneeded prior to procedure. Follow-up postop CBC and BMP. ? EKG/echo: EKG in ED showed normal sinus rhythm, no ST changes. Appeared similar to last EKG from July. Last echo in 2020 showed normal EF with moderate aortic stenosis. Patient is hemodynamically stable here at rest, denies any chest pain or shortness of breath with exertion recently. No need for repeat echo prior to procedure. ? Medications: Okay to continue home beta-jefe and aspirin on day of procedure. Holding home diltiazem as noted below. Giving reduced dose of long-acting insulin on day of procedure given n.p.o. status. ? Previous procedural complications: None. ? Recommendation: Patient is medically optimized for procedure. 3. Mild creatinine elevation ? Creatinine 1.19 on admit, baseline creatinine around 0.8-1.0. Suspect due to mild dehydration as other labs appear somewhat hemoconcentrated. Will give 750 cc of IV fluids over 5 hours prior to procedure. Follow-up a.m. BMP and urine output. 4. Type 2 diabetes mellitus with hyperglycemia ? Current home regimen of insulin detemir 20 units twice daily, Humalog 5 units with meals, Januvia 50 mg daily, Jardiance 10 mg daily, Trulicity weekly. Most recent A1c 8.2% on 10/24. On chart review, patient was hospitalized in July 2023. Was noted then that she had history of poorly controlled diabetes with very high insulin requirements. However, her blood sugars during the hospitalization were low and her insulin regimen was significantly reduced with better insulin control. Blood glucose 254 on admit, suspect this is in part dueto acute stress from hip fracture. Will start Lantus 15 units twice daily and Humalog sliding scale insulin with meals while inpatient, adjust as needed. Repeat A1c ordered. 5. Hypercalcemia ? Calcium 11.2 on admit. Known history of mild hypercalcemia, was 10-11 during previous hospitalization in July. PTH was 153 at that time concerning for primary hyperparathyroidism. Plan was for outpatient follow-up for further workup but does not appear this was done. Will repeat PTH now. If remains high, would continue to have concern for primary hyperparathyroidism and this could be contributing to calcium withdrawal from bones leading to possible osteopenia versus osteoporosis. Given IV fluids in the ED as noted above, follow-up a.m. calcium level. Would recommend close outpatient follow-up with endocrinology. 6. COPD ? Not on home O2. Breathing comfortably on room air on arrival here with good saturations, no wheezing noted, no concern for acute exacerbation. Continue home inhalers and roflumilast. 7. Chronic urinary retention with self-catheterization ? UA on admit noninfectious appearing. Given current immobility and plan for procedure, Serna catheter placed in the ED. Recommend voiding trial prior to discharge. 8. Chronic anemia ? Hemoglobin 12.4 on admit, recent baseline around 9-11. Suspect somewhat hemoconcentrated as noted above. Follow-up a.m. CBC. 9. Hypertension ? Home regimen listed as Lopressor 25 mg twice daily and diltiazem 180 mg daily. Heart rate in the 80s in the ED, normal sinus rhythm. Unclear why patient is on both a beta-jefe and nondihydropyridine calcium channel jefe. BP elevated to the 150s to 170s on admit but suspect this is in part due to pain. Will continue Lopressor and hold diltiazem for now. 10. GERD ? Stable. Continue home PPI. DVT prophylaxis: Lovenox CODE STATUS: Full code, verified Expected disposition: TBD Total clinical time spent by myself addressing the patient's medical issues, reviewing all the data, and collaborating with patient's care team: 75 minutes. Charges/Coding Visit Charges Inpatient E&M: 24115 Init Hosp L3 12/28/23 0447 <Electronically signed by Nestor Bartlett DO> Cosigner Signature (if applicable): CC: Dr. Nestor Bartlett DO; Dr. Ramone Smiley MD~ Signed [facility] Work Phone: 1([phone]) 214-214804-29-2024 Discharge summary Author Queta Cortez [facility] December 28, 2023 2:33am Note Date/Time December 27, 2023 10: 23pm [facility] Medical Records Department [address] [place] [address] Emergency Department Summary 12/27/23 MR#: [id number] Acct: [id number] Name: OLGA DONALDSON Rep #:[id number] : 1945 78 From: Queta Cortez MD PCP: Dr. Ramone Smiley MD Status:ADM IN Location: MS3 CP427-4 HPI HPI - Fall History of Present Illness Chief Complaint: Fall Informant: patient Occured/Mechanism Occurred: Today Narrative Narrative: Patient presents via EMS after a fall with left hip pain. She states she was getting up off the couch to go cath herself. She got her walker turned but losther balance and fell landing on her left hip. She complains of left hip pain with shortening and external rotation noted. She denies striking her head. Sheis on aspirin but no other form of anticoagulant. PFSH PFS Medical History Anemia Anxiety Aortic stenosis Asthma Carpal tunnel syndrome of right wrist Cellulitis and abscess of finger, unspecified Chronic idiopathic constipation Chronic renal failure, stage 3 (moderate) Colon polyp COPD (chronic obstructive pulmonary disease) Coronary artery disease Depression Diabetes Diabetic retinopathy Foraminal stenosis of lumbar region Former smoker GERD (gastroesophageal reflux disease) Goiter, nontoxic, multinodular History of malignant neoplasm of breast Hx of venous thrombosis and embolism Hypercalcemia Hyperlipidemia Hypertension Hypokalemia Hyponatremia Hypophosphatemia Iron deficiency anemia Irregular heart beat Leg weakness, bilateral Lumbar spinal stenosis Microcytic anemia Multiple thyroid nodules Neurogenic bladder Paronychia of left index finger Peripheral artery disease Polypharmacy Pruritus Retinopathy Rhinitis Strain of right rotator cuff capsule Thyroid goiter Type 2 diabetes mellitus Urinary retention with incomplete bladder emptying Urine retention UTI (urinary tract infection) Vaginal cyst Vitamin D deficiency Home Medications aspirin 81 mg chewable tablet 81 mg PO DAILY [facility] 01/21/16 [History Last Taken 08/12/23] albuterol sulfate 90 mcg/actuation aerosol inhaler 2 puff inhalation Q4H PRN Sob&/Or Wheezing 08/16/18 [History Last Taken 07/10/20 06:30] diltiazem HCl 180 mg tablet,extended release 24 hr 180 mg PO DAILY BLOOD PRESSURE 08/16/18 [History Last Taken 08/12/23] magnesium oxide 400 mg (241.3 mg magnesium) tablet 400 mg PO BID SUPPLEMENT 08/16/18 [History Last Taken 08/12/23] metoprolol tartrate 25 mg tablet 25 mg PO BID BLOOD PRESSURE 08/16/18 [History Last Taken 08/12/23] pantoprazole 40 mg tablet,delayed release 40 mg PO QHS ACID REFLUX 12/02/19 [History Last Taken 08/12/23] empagliflozin 10 mg tablet (Jardiance) 10 mg PO DAILY DIABETES 10/18/20 [History Last Taken 08/12/23] sitagliptin phosphate 50 mg tablet (Januvia) 50 mg PO DAILY DIABETES 10/18/20 [History Last Taken 08/12/23] budesonide-formoterol HFA 160 mcg-4.5 mcg/actuation aerosol inhaler (Symbicort) 2 puff inhalation BID 12/06/21 [History Last Taken 08/12/23] multivitamin 1 tab PO DAILY 12/06/21 [History Last Taken 08/12/23] pravastatin 20 mg tablet 20 mg PO DAILY CHOLESTEROL 12/06/21 [History Last Taken 08/12/23] ascorbic acid (vitamin C) 250 mg tablet (Vitamin C) 250 mg PO DAILY SUPPLEMENT 08/13/23 [History Last Taken 08/12/23] azelastine 137 mcg (0.1 %) nasal spray aerosol 137 mcg intranasal BID RUNNY NOSE08/13/23 [History Last Taken 08/12/23] cod liver oil 1 cap PO DAILY SUPPLEMENT 08/13/23 [History Last Taken 08/12/23] dulaglutide 0.75 mg/0.5 mL subcutaneous pen injector (Trulicity) 0.75 mg subcut MO DIABETES 08/13/23 [History Last Taken 08/10/23] fiber 1 cap PO DAILY CONSTIPATION 08/13/23 [History Last Taken 08/12/23] gabapentin 100 mg capsule 100 mg PO QHS NERVE PAIN 08/13/23 [History Last Taken 08/12/23] roflumilast 500 mcg tablet 500 mcg PO DAILY COPD 08/13/23 [History Last Taken 08/12/23] insulin aspart U-100 100 unit/mL subcutaneous solution 5 unit (0.05 mL) subcut BIDCM DIABETES #10 mL 12/18/23 [Rx Last Taken 08/12/23] insulin detemir U-100 100 unit/mL (3 mL) subcutaneous pen 20 unit (0.2 mL) subcut BIDCM DIABETES #15 mL 08/17/23 [Rx Last Taken 08/12/23] Allergy/AdvReac Type Severity Reaction Status Date / Time adhesive tape [tape] Allergy NEEDS Verified 12/27/23 22:08 FOLLOW-UP amoxicillin Allergy YEAST Verified 12/27/23 22:08 INFECTION cephalexin monohydrate Allergy Rash Verified 12/27/23 22:08 [From Keflex] clopidogrel bisulfate Allergy Other Verified 12/27/23 22:08 [From Plavix] Family History Daughter Breast cancer Father Hypertension Sister Cancer Kidney disease Mother Pancreatic cancer Surgical History H/O dilation and curettage (~07/10/20) History of Achilles tendon repair History of lumpectomy of left breast Retinopathy S/P fine needle aspiration (~10/2020) Social History household members: spouse Smoking Status: Former smoker alcohol intake: never substance use type: does not use caffeine: Yes what type of physical activity do you participate in: none seatbelt use: always do you feel safe at home: Yes additional social history: [employer]- retired ROS ROS ED Constitutional Constitutional ED: Denies chills or fever(s) Eyes Eyes: Denies discharge from eye(s) ENT ENT ED: Denies discharge from eye(s), rhinorrhea or sore throat Cardiovascular Cardiovascular: Denies chest pain or palpitations Respiratory/Chest Respiratory/Chest: Denies cough or dyspnea Gastrointestinal Gastrointestinal: Denies abdominal pain, nausea or vomiting Genitourinary Genitourinary ED: Reports other Details: Patient self caths at baseline. Musculoskeletal Musculoskeletal: Reports extremity pain; Denies back pain Integumentary Denies Abrasions or rash Neurologic Neurologic: Denies headache(s) or weakness Allergic/Immunologic Allergic/Immunologic ED: Denies lip swelling or urticaria EXAM Physical Exam Const Vital Signs: 12/27/23 22:06 12/27/23 22:24 Temperature 98.1 F Temperature Source Temporal Pulse Rate 82 Respiratory Rate 16 Respiratory Effort Normal Non-Labored Respiratory Depth Normal Respiratory Pattern Normal Blood Pressure 173/72 H Blood Pressure Mean 105 Pulse Ox 98 Oxygen Delivery Method Room Air Room Air Positive well nourished and well developed General Appearance ED: well developed HEENT Reports normocephalic Eyes EOMs intact bilaterally Neck full ROM Chest Wall inspection of chest normal and palpation of chest normal Resp normal respiratory effort and clear to auscultation bilaterally Cardio regular rate and regular rhythm GI non-tender Palpation: soft Extremity Extremity Narrative: Left lower extremity held in slight external rotation and is shortened. Tenderness of the left hip. Good sensation distally with strong pulses. Patient can wiggle toes. Neuro oriented x3 and moves all extremities Psych mental status grossly normal MDM MDM MDM Narrative Medical decision making narrative: Patient placed on desk monitor. Patient given morphine and Zofran for pain and nausea. Labwork obtained to evaluate for leukocytosis, anemia, and electrolyte derangement. X-rays of the chest as well as pelvis and left hip obtained given suspicion for left hip fracture. EKG will be obtained for preop clearance. History & Record Review Discussion w/independent historian: Patient Lab Data Attestation: I reviewed the patient's lab results. Labs: Laboratory Results - last 24 hr 12/27/23 22:35 WBC 8.2 RBC 4.67 Hgb 12.4 Hct 39.8 MCV 85.2 MCH 26.6 L MCHC 31.2 L RDW Std Deviation 47.0 H RDW Coeff of Vijay 15.5 H Plt Count 237 MPV 11.5 Immature Gran % (Auto) 1.000 H Neut % (Auto) 51.7 Lymph % (Auto) 37.1 Bacon % (Auto) 6.6 Eos % (Auto) 3.1 Baso % (Auto) 0.5 Absolute Neuts (auto) 4.2 Absolute Lymphs (auto) 3.04 Nucleated RBC % 0 Sodium 136 Potassium 4.2 Chloride 103 Carbon Dioxide 29.0 Anion Gap 4 L BUN 22 H Creatinine 1.19 H Estim Creat Clear Calc 37.33 Est GFR (MDRD) Af Amer 56 L Est GFR (MDRD) Non-Af 46 L BUN/Creatinine Ratio 18.5 Glucose 254 H Calcium 11.2 H EKG Initial EKG: Attestation: I personally reviewed and interpreted this EKG as follows: Interpretation: Sinus Rhythm (Sinus rhythm at 79 bpm. No acute ischemia.) Treatment and Re-Evaluation Narrative: CBC and chemistry studies per my interpretation significant only for creatinine of 1.19 with a BUN of 22. This is only slightly elevated above her baseline, although she does have reported history of stage III chronic renal failure. Glucose is 254. Portable chest x-ray per my interpretation was chronic changes with no focal infiltrate. Pelvis and left hip x-rays per my interpretation reveal a left femoral neck fracture. Test results are discussed with the patient. She has seen Dr. Ravi previously prior to his custodial. Dr. Byrd is on-call for [facility] and I will speak with him [facility] and need for surgical repair. Discharge Plan Dx/Rx/DC Orders Clinical Impression: Fracture of hip, left, closed Disposition Disposition: Acute Care Hospital [facility] What to do if you have Problems For any increased pain, shortness of breath, bleeding, nausea or vomiting, chestpain, or any unexpected problems, contact your Primary Care Provider. Call [facility] ([phone]) or report to the closest Emergency Room. Call 911 if necessary. 12/28/23 0233 <Electronically signed by Queta Cortez MD> Cosigner Signature (if applicable): CC: Dr. Ramone Smiley MD ~ Signed [facility] [facility] Work Phone: 1(534) 468-220212-18-2023 Consult note Author Derrick Hallman [facility] August 17, 2023 11:38am Note Date/Time August 17, 2023 11:38am [facility] Medical Records Department [address] [place] [address] Counseling Note - Pharmacy 08/17/23 1137 MR#: [id number] Acct: [id number] Name: OLGA DONALDSON Rep #:[id number] : 1945 78 From: Derrick Hallman PCP: Dr. Ramone Smiley MD Status:ADM IN Y Location: [place] [address] Pharmacy [facility] has performed discharge medication reconciliation and counseling for this patient. The patient's discharge medication list was reviewed for discrepancies and discrepancies were resolved. The patient was counseled on the following discharge medications and changes in medications for homegoing were reviewed. The Reason for Use, instructions for use, and potential side effects were reviewed for all new medications. The patient's questions regarding all of their medications were answered. 1. Ciprofloxacin 250 mg PO BID x 5 days The patient was able to verbally demonstrate an understanding of their dischargemedications. Medications at Discharge Home Medications aspirin 81 mg chewable tablet 81 mg PO DAILY [facility] 01/21/16 albuterol sulfate 90 mcg/actuation aerosol inhaler 2 puff inhalation Q4H PRN Sob&/Or Wheezing 08/16/18 diltiazem HCl 180 mg tablet,extended release 24 hr 180 mg PO DAILY BLOOD PRESSURE 08/16/18 magnesium oxide 400 mg (241.3 mg magnesium) tablet 400 mg PO BID SUPPLEMENT 08/16/18 metoprolol tartrate 25 mg tablet 25 mg PO BID BLOOD PRESSURE 08/16/18 pantoprazole 40 mg tablet,delayed release 40 mg PO QHS ACID REFLUX 12/02/19 empagliflozin 10 mg tablet (Jardiance) 10 mg PO DAILY DIABETES 10/18/20 sitagliptin phosphate 50 mg tablet (Januvia) 50 mg PO DAILY DIABETES 10/18/20 budesonide-formoterol HFA 160 mcg-4.5 mcg/actuation aerosol inhaler (Symbicort) 2 puff inhalation BID 12/06/21 multivitamin 1 tab PO DAILY 12/06/21 pravastatin 20 mg tablet 20 mg PO DAILY CHOLESTEROL 12/06/21 ascorbic acid (vitamin C) 250 mg tablet (Vitamin C) 250 mg PO DAILY SUPPLEMENT 08/13/23 azelastine 137 mcg (0.1 %) nasal spray aerosol 137 mcg intranasal BID RUNNY NOSE08/13/23 cod liver oil 1 cap PO DAILY SUPPLEMENT 08/13/23 dulaglutide 0.75 mg/0.5 mL subcutaneous pen injector (Trulicity) 0.75 mg subcut MO DIABETES 08/13/23 fiber 1 cap PO DAILY CONSTIPATION 08/13/23 gabapentin 100 mg capsule 100 mg PO QHS NERVE PAIN 08/13/23 roflumilast 500 mcg tablet 500 mcg PO DAILY COPD 08/13/23 ciprofloxacin HCl 250 mg tablet 250 mg PO BID #10 tabs 08/17/23 insulin aspart U-100 100 unit/mL subcutaneous solution 5 unit (0.05 mL) subcut BIDCM DIABETES #10 mL 08/17/23 insulin detemir U-100 100 unit/mL (3 mL) subcutaneous pen 20 unit (0.2 mL) subcut BIDCM DIABETES #15 mL 08/17/23 08/17/23 1138 <Electronically signed by Derrick garg> Date _ Derrick Hallman Cosigner Signature (if applicable): Date CC: ~ Signed [facility] Work Phone: [phone]) 441-622212-18-2023 Discharge summary [facility] August 17, 2023 11:20am Note Date/Time August 17, 2023 11:12am [facility] Medical Records Department [address] [place] [address] Discharge Summary 08/17/23 1111 MR#: [id number] Acct: [id number] Name: OLGA DONALDSON Rep #:[id number] : 1945 78 From: Sandeep Denson MD PCP: Dr. Ramone Smiley MD Status:ADM IN Location: [place] [address] Providers Date of Admission: 08/13/23 Date of Discharge: 08/17/23 Primary Care Physician: Dr. Ramone Smiley MD Reason For Visit: WEAKNESS, LIA, UTI, FREQUENT FALLS Diagnosis Discharge Diagnosis (1) Falls: Status: Acute Code(s): W19.XXXA - Unspecified fall, initial encounter (2) Weakness: Status: Acute Code(s): R53.1 - Weakness (3) Acute UTI: Status: Acute Code(s): N39.0 - Urinary tract infection, site not specified Medications at Discharge Home Medications aspirin 81 mg chewable tablet 81 mg PO DAILY [facility] 01/21/16 albuterol sulfate 90 mcg/actuation aerosol inhaler 2 puff inhalation Q4H PRN Sob&/Or Wheezing 08/16/18 diltiazem HCl 180 mg tablet,extended release 24 hr 180 mg PO DAILY BLOOD PRESSURE 08/16/18 magnesium oxide 400 mg (241.3 mg magnesium) tablet 400 mg PO BID SUPPLEMENT 08/16/18 metoprolol tartrate 25 mg tablet 25 mg PO BID BLOOD PRESSURE 08/16/18 pantoprazole 40 mg tablet,delayed release 40 mg PO QHS ACID REFLUX 12/02/19 empagliflozin 10 mg tablet (Jardiance) 10 mg PO DAILY DIABETES 10/18/20 sitagliptin phosphate 50 mg tablet (Januvia) 50 mg PO DAILY DIABETES 10/18/20 budesonide-formoterol HFA 160 mcg-4.5 mcg/actuation aerosol inhaler (Symbicort) 2 puff inhalation BID 12/06/21 multivitamin 1 tab PO DAILY 12/06/21 pravastatin 20 mg tablet 20 mg PO DAILY CHOLESTEROL 12/06/21 ascorbic acid (vitamin C) 250 mg tablet (Vitamin C) 250 mg PO DAILY SUPPLEMENT 08/13/23 azelastine 137 mcg (0.1 %) nasal spray aerosol 137 mcg intranasal BID RUNNY NOSE08/13/23 cod liver oil 1 cap PO DAILY SUPPLEMENT 08/13/23 dulaglutide 0.75 mg/0.5 mL subcutaneous pen injector (Trulicity) 0.75 mg subcut MO DIABETES 08/13/23 fiber 1 cap PO DAILY CONSTIPATION 08/13/23 gabapentin 100 mg capsule 100 mg PO QHS NERVE PAIN 08/13/23 roflumilast 500 mcg tablet 500 mcg PO DAILY COPD 08/13/23 ciprofloxacin HCl 250 mg tablet 250 mg PO BID #10 tabs 08/17/23 insulin aspart U-100 100 unit/mL subcutaneous solution 5 unit (0.05 mL) subcut BIDCM DIABETES #10 mL 08/17/23 insulin detemir U-100 100 unit/mL (3 mL) subcutaneous pen 20 unit (0.2 mL) subcut BIDCM DIABETES #15 mL 08/17/23 Hospital Course Summary of Care Provided Minutes Spent on Discharge: 35 Hospital Course: Patient is a 78-year-old lady admitted with progressive generalized weakness diagnosed with acute cystitis 1. Acute cystitis secondary to intermittent self-catheterization with Klebsiella ? Admitted to regular nursing floor patient started on antibiotics per protocol urine cultures came back positive for Klebsiella discharged on ciprofloxacin 2. Acute kidney injury ? Resolved with rehydration. Patient was on lisinopril discontinued 3. Physical deconditioning - Requested for PT OT eval and social media editor to assist with discharge planning 4. Diabetes mellitus type II -Patient apparently did experience episodes of hypoglycemia she was on high doses of long-acting insulin doses adjusted on discharge 5. Anemia - Secondary to chronic disorder monitoring H&H and transfuse if patient becomes symptomatic or hemoglobin falls below 7 6. Hypercalcemia, stable Calcium 10.5 on admit. PTH elevated at 153. Mild hypercalcemia could be secondary to primary hyperparathyroidism. ? Calcium initially improved with IV fluids, now stable. Monitor daily calcium. Plan for outpatient follow-up with PCP to address further as needed. 7. Essential hypertension ? Patient home medications adjusted 8. GERD ? On PPI 9. DVT prophylaxis ? SC Lovenox Physical Exam Narrative GENERAL: cooperative HEENT: Atraumatic; normocephalic EYES; Anicteric, Normal Conjunctiva NECK; supple, normal thyroid, RESPIRATORY: Diminished to auscultation CARDIOVASCULAR: Regular S1 S2, GI: soft, normoactive bowel sounds, : No Renal angle tenderness; EXTREMITIES: No edema, no clubbing, MUSCULOSKELETAL: no muscle wasting NEURO: Awake; no lateralizing signs. SKIN: No Rash PSYCH; Flat affect Medical Records Data Medical Nutrition Assessment Dietitian: Malnutrition Criteria Met Start: 08/14/23 13:49 Freq: Status: Active Protocol: Document 08/14/23 13:49 AG (Rec: 08/14/23 13:49 AG [id number]) Nutrition Malnutrition Evidence of Malnutrition Exists Yes Malnutrition (severe): Chronic Evidenced By Suboptimal Energy Intake ( Severe),Weight Loss (Severe) Clinical Problem Chronic Disease or Condition Related Malnutrition Etiology severe, chronic malnutrition related to inadequate energy intake d/t debility Signs/Symptoms as evidenced by unintentional 9% wt loss x 1 month, estimated PO intake meeting < 75% of estimated energy needs >1 month Status Active Problem Recommendation Dietitian Recommendations/Changes will adjust diet to 1800 calorie controlled/consistent CHO, will add glucerna 120mL 4x/day w/ medpass given signs/ symptoms of malnutrition Weight / BMI Weight Weight: 60.1 kg Body Mass Index (BMI) 23.4 ABG / Lab / Microbiology Data 08/17/23 04:50 08/17/23 04:50 Laboratory: Laboratory Results - last 24 hr 08/16/23 11:42: POC Glucose 170 H 08/16/23 16:10: POC Glucose 175 H 08/16/23 20:51: POC Glucose 142 H 08/17/23 04:50: WBC 8.4, RBC 3.41 L, Hgb 8.9 L, Hct 28.8 L, MCV 84.5, MCH 26.1 L, MCHC 30.9 L, RDW Std Deviation 55.6 H, RDW Coeff of Vijay 17.9 H, Plt Count 480 H, MPV 10.4, Sodium 139, Potassium 4.9, Chloride 105, Carbon Dioxide 30.0, AnionGap 4 L, BUN 18, Creatinine 0.91, Estim Creat Clear Calc 41.47, Est GFR (MDRD) Af Amer 77, Est GFR (MDRD) Non-Af 64, BUN/Creatinine Ratio 19.9, Glucose 167 H, Calcium 10.6 H 08/17/23 07:34: POC Glucose 165 H Microbiology: Microbiology 08/13/23 12:05 Blood Culture (Wb) - Anticubital Right Blood Culture - Final GNR lactose customer retention specialist 08/13/23 11:10 Blood Culture (Wb) - Anticubital Right Blood Culture - Final Klebsiella pneumoniae sp pneum 08/13/23 12:40 Urine, Catheterized Urine Culture - Final Klebsiella pneumoniae sp pneum 08/13/23 11:00 Nasal Secretion SARS-CoV-2 & FLU Antigen (Rapid) - Final D/C Instructions Discharge Diet: No restrictions Discharge Activity: Return to Normal Activity Call your doctor if you observe: Fever of 101 or Higher, Shortness of breath, Fainting spells and Chest pain Meaningful Use Info Meaningful Use Diagnoses (Choose all that apply): None applicable Discharge Plan Admission Admit Date/Time: 08/13/23 14:31 Attending Provider: Sandeep Denson Primary Care Provider: Ramone Smiley Consulting Providers: Ramone Veras; Nestor Bartlett Discharge Orders/Prescriptions Prescriptions: New ciprofloxacin HCl 250 mg Tablet 250 mg PO BID Qty: 10 0RF Continued Januvia 50 mg tablet 50 mg PO DAILY Jardiance 10 mg tablet 10 mg PO DAILY multivitamin Tablet 1 tab PO DAILY pravastatin 20 mg tablet 20 mg PO DAILY budesonide-formoterol [Symbicort] 160-4.5 mcg/actuation HFA aerosol inhaler 2 puff inhalation BID aspirin 81 MG tablet,chewable 81 mg PO DAILY metoprolol tartrate 25 MG tablet 25 mg PO BID magnesium oxide 400 MG tablet 400 mg PO BID diltiazem HCl 180 MG tablet extended release 24 hr 180 mg PO DAILY albuterol sulfate 1 INHALER inhaler 2 puff INHALATION Q4H PRN (Reason: Sob &/Or Wheezing) pantoprazole 40 MG tablet 40 mg PO QHS gabapentin 100 mg capsule 100 mg PO QHS roflumilast 500 mcg tablet 500 mcg PO DAILY Trulicity 0.75 mg/0.5 mL pen injector 0.75 mg subcut MO cod liver oil Capsule 1 cap PO DAILY fiber Capsule 1 cap PO DAILY ascorbic acid (vitamin C) [Vitamin C] 250 mg tablet 250 mg PO DAILY azelastine 137 mcg (0.1 %) aerosol,spray 137 mcg intranasal BID Changed insulin aspart U-100 100 UNIT/ML solution 5 unit subcut BIDCM Qty: 10 0RF insulin detemir U-100 100 UNITS/ML insulin pen 20 unit SC BIDCM Qty: 15 0RF Rx Instructions: . Discontinued potassium chloride [Klor-Con M20] 20 mEq tablet,ER particles/crystals 40 meq PO BID lisinopril 40 MG tablet 40 mg PO BID Referrals / Follow Up: Anne Marie Marshall MD [Med Staff - Wire Stripper] - 08/25/23 10:30 am Disposition Disposition (needs filled in before D/C Order can be placed): Home, Self Care Charges/Coding Visit Charges Inpatient E&M: 08411 Disch Hosp >30min 08/17/23 1120 <Electronically signed by Sanedep Denson MD> Cosigner Signature (if applicable): CC: Dr. Sandeep Denson MD; Dr. Ramone Smiley MD~ Signed [facility] Work Phone: [phone]) 243-437312-17-2023 Progress note Author Nestor Bartlett [facility] August 16, 2023 1:08pm Note Date/Time August 16, 2023 1:08pm [facility] Medical Records Department [address] [place] [address] Progress Note - Hospitalist 08/16/23 1300 MR#: [id number] Acct: [id number] Name: OLGA DONALDSON Rep #:[id number] : 1945 78 From: Nestor roman DO PCP: Dr. Ramone Smiley MD Status:ADM IN Location: [place] [address] Reason for Visit Reason for Visit: Diagnoses Type 2 diabetes mellitus without complications (08/13/23) Hypo-osmolality and hyponatremia (08/13/23) Essential (primary) hypertension (08/13/23) Chronic obstructive pulmonary disease, unspecified (08/13/23) Unspecified asthma, uncomplicated (08/13/23) Gastro-esophageal reflux disease without esophagitis (08/13/23) Acute kidney failure, unspecified (08/13/23) Neuromuscular dysfunction of bladder, unspecified (08/13/23) Urinary tract infection, site not specified (08/13/23) Weakness (08/13/23) Unspecified fall, initial encounter (08/13/23) Personal history of malignant neoplasm of breast (08/13/23) Subjective Subjective Patient seen at bedside this morning. Sitting comfortably in bedside chair, conversing normally, no acute distress. Patient states she has felt well since yesterday, denies any acute pain or discomfort. Continues to feel somewhat weakwith ambulation but slightly improved from previous. No other acute concerns this morning. Objective Data Objective Data Vital Signs: Vital Signs Temp Pulse Resp BP Pulse Ox O2 Del Method 98.0 F 88 18 118/47 L 98 Room Air 08/16/23 10:00 08/16/23 10:00 08/16/23 10:00 08/16/23 10:00 08/16/23 10:00 08/16/23 10:00 Oxygen Delivery Method Room Air Weight: 60.1 kg Body Mass Index (BMI) 23.4 Intake & Output: Intake and Output for Last 24 Hours 08/14/23 08/15/23 08/16/23 23:59 23:59 23:59 Intake Total 3650 / 3650 2470 / 2620 556.67 / 556.67 Output Total 1630 / 2330 2200 / 2500 2074 / 207 Balance 2020 / 1320 270 / 120 -1518.33 / -1518.33 Medical Nutrition Assessment Dietitian: Malnutrition Criteria Met Start: 08/14/23 13:49 Freq: Status: Active Protocol: Document 08/14/23 13:49 AG (Rec: 08/14/23 13:49 AG [id number]) Nutrition Malnutrition Evidence of Malnutrition Exists Yes Malnutrition (severe): Chronic Evidenced By Suboptimal Energy Intake ( Severe),Weight Loss (Severe) Clinical Problem Chronic Disease or Condition Related Malnutrition Etiology severe, chronic malnutrition related to inadequate energy intake d/t debility Signs/Symptoms as evidenced by unintentional 9% wt loss x 1 month, estimated PO intake meeting < 75% of estimated energy needs >1 month Status Active Problem Recommendation Dietitian Recommendations/Changes will adjust diet to 1800 calorie controlled/consistent CHO, will add glucerna 120mL 4x/day w/ medpass given signs/ symptoms of malnutrition Lab / Micro Data 08/16/23 07:30 08/16/23 07:30 Labs: Laboratory Results - last 24 hr 08/15/23 16:05: POC Glucose 183 H 08/15/23 20:26: POC Glucose 123 H 08/16/23 07:30: WBC 8.0, RBC 3.51 L, Hgb 9.2 L, Hct 29.5 L, MCV 84.0, MCH 26.2 L, MCHC 31.2 L, RDW Std Deviation 54.9 H, RDW Coeff of Vijay 17.9 H, Plt Count 451 H, MPV 10.2, Sodium 135 L, Potassium 4.4, Chloride 104, Carbon Dioxide 29.0, Anion Gap 2 L, BUN 18, Creatinine 0.88, Estim Creat Clear Calc 42.88, Est GFR (MDRD) Af Amer 80, Est GFR (MDRD) Non-Af 66, BUN/Creatinine Ratio 20.5 H, Glucose 132 H, Calcium 11.3 H 08/16/23 07:41: POC Glucose 130 H 08/16/23 11:42: POC Glucose 170 H Micro: Microbiology 08/13/23 12:05 Blood Culture (Wb) - Anticubital Right Blood Culture - Final GNR lactose customer retention specialist 08/13/23 11:10 Blood Culture (Wb) - Anticubital Right Blood Culture - Final Klebsiella pneumoniae sp pneum 08/13/23 12:40 Urine, Catheterized Urine Culture - Final Klebsiella pneumoniae sp pneum 08/13/23 11:00 Nasal Secretion SARS-CoV-2 & FLU Antigen (Rapid) - Final Physical Exam Const alert, no apparent distress and average body habitus Constitutional Narrative: Pleasant elderly female, chronically ill-appearing, sitting comfortably in bedside chair, conversing normally, no acute distress. General Appearance: cooperative and comfortable HEENT normocephalic, head/scalp atraumatic, hearing grossly normal bilaterally, nasal mucous membranes and turbinates normal and moist oral mucous membranes Eyes PERRL, EOMs intact bilaterally and conjunctivae normal Neck full ROM, no lymphadenopathy and supple Lymph Lymphatic: no lymphadenopathy noted Chest inspection of chest normal Resp normal respiratory effort, normal air movement, no use of accessory muscles and clear to auscultation bilaterally Cardio regular rate, regular rhythm, no murmurs and peripheral pulses 2+ throughout GI normal to inspection, nondistended, normoactive bowel sounds, soft to palpation,non-tender and non-distended Back/Spine normal ROM Extremity normal to inspection and no pedal edema Skin no rashes or lesions noted Neuro moves all extremities and no focal motor deficits Speech: speech normal Psych mental status grossly normal Assessment & Plan Assessment/Plan (1) Falls: (2) Weakness: (3) Acute UTI: PLAN: Plan Patient is a 78-year-old female who presented to [facility] ED on 08/13/2023 with increasing generalized weakness and falls. 1. Generalized weakness Likely multifactorial due to UTI with bacteremia, dehydration with LIA, hypercalcemia. Suspect low blood sugars at home from unnecessarily high insulindoses may have also been contributing to her weakness and falls. ? PT/OT/case management following. Patient likely wanted to go home with home health care on discharge. Treating UTI and LIA as noted below. Fall precautions in place. 2. UTI in setting of chronic urinary retention with self-catheterization UA on admit suggestive of UTI. WBC count elevated on admit as well. Initiated on ciprofloxacin due to allergies to other medications. IV fluids given in the ED. Serna catheter placed in the ED as well. Blood cultures +2/2, urine culture positive for Klebsiella. ? Continue ciprofloxacin, planning for 7 day course. Maintain Serna catheter; likely discharge home with Serna, can follow-up outpatient with urology as needed. 3. LIA, resolved ? Creatinine 1.18 on admit, baseline around 0.7-0.8. Likely due to poor p.o. intake plus or minus underlying infection. Improved to baseline on hospital day2 after IV hydration. Continue to monitor BMP daily. Continue holding home lisinopril for now, like okay to restart on discharge. 4. Type 2 diabetes mellitus History of poorly controlled diabetes with very high insulin requirements. Homeregimen prior to admission of detemir 56 units twice daily, aspart 22 units twice daily with meals. ? Blood sugars have been low on multiple checks during this admission. Patient reduced to Lantus 20 units at night, Humalog 5 units twice daily with meals plussliding scale and sugars have remained stable in the low to mid 100s. Recommenddischarging on a regimen similar to this. 5. Hyponatremia, resolved ? Sodium 127 on admit, improved to 136 after IV fluid resuscitation. Very likely hypovolemic hyponatremia initially. Monitor BMP daily. 6. Hypercalcemia, stable Calcium 10.5 on admit. PTH elevated at 153. Mild hypercalcemia could be secondary to primary hyperparathyroidism. ? Calcium initially improved with IV fluids, now stable. Monitor daily calcium. Plan for outpatient follow-up with PCP to address further as needed. 6. Acute on chronic normocytic anemia, stable Hemoglobin 10.0 on admit, baseline hemoglobin appears to be around 10-11. Hemoglobin decreased to 8.4 on hospital day 2. No active bleeding, may be due to hemodilution after IV fluids. Iron studies consistent with anemia of chronicdisease. ? Hemoglobin stable. Monitor daily CBC. Chronic medical conditions: ? Hypertension: Continue home diltiazem, Lopressor. Holding home lisinopril fornow, restart as needed. ? GERD: Continue home PPI. DVT prophylaxis: Lovenox CODE STATUS: Full code, verified Expected disposition: Home with home health care, 1 to 2 days Total clinical time spent by myself addressing the patient's medical issues, reviewing all the data, and collaborating with patient's care team: 35 minutes. Charges/Coding Visit Charges Inpatient E&M: 26880 Subs Hosp L2 08/16/23 1309 <Electronically signed by Nestor Bartlett DO> Cosigner Signature (if applicable): CC: ~ Signed [facility] Work Phone: 1(585) 938-552212-16-2023 Progress note Author Nestor Bartlett [facility] August 15, 2023 1:28pm Note Date/Time August 15, 2023 1:24pm [facility] Medical Records Department [address] [place] [address] [place] [address] Progress Note - Hospitalist 08/15/23 1317 MR#: [id number] Acct: [id number] Name: OLGA DONALDSON Rep #:[id number] : 1945 78 From: Nestor roman DO PCP: Dr. Ramone Smiley MD Status:ADM IN Location: [place] [address] Reason for Visit Reason for Visit: Diagnoses Type 2 diabetes mellitus without complications (08/13/23) Hypo-osmolality and hyponatremia (08/13/23) Essential (primary) hypertension (08/13/23) Chronic obstructive pulmonary disease, unspecified (08/13/23) Unspecified asthma, uncomplicated (08/13/23) Gastro-esophageal reflux disease without esophagitis (08/13/23) Acute kidney failure, unspecified (08/13/23) Neuromuscular dysfunction of bladder, unspecified (08/13/23) Urinary tract infection, site not specified (08/13/23) Weakness (08/13/23) Unspecified fall, initial encounter (08/13/23) Personal history of malignant neoplasm of breast (08/13/23) Subjective Subjective Patient seen at bedside this morning. Sitting comfortably in bedside chair, conversing normally, no acute distress. Patient states that she feels fairly well this morning, improved from previous days. States that with her low blood sugar this morning she did feel somewhat fatigued, improved with eating. Deniesany other acute pain or discomfort today. No other acute concerns. Objective Data Objective Data Vital Signs: Vital Signs Temp Pulse Resp BP Pulse Ox O2 Del Method 97.7 F L 80 16 140/58 H 100 Room Air 08/15/23 08:38 08/15/23 08:43 08/15/23 08:38 08/15/23 08:43 08/15/23 08:38 08/15/23 08:38 Oxygen Delivery Method Room Air Weight: 60.1 kg Body Mass Index (BMI) 23.4 Intake & Output: Intake and Output for Last 24 Hours 08/13/23 08/14/23 08/15/23 23:59 23:59 23:59 Intake Total 1810.0 / 1810.0 3650 / 3650 1520 / 1520 Output Total 550 / 550 1630 / 2330 1350 / 1350 Balance 1260.0 / 1260.0 2020 / 1320 170 / 170 Medical Nutrition Assessment Dietitian: Malnutrition Criteria Met Start: 08/14/23 13:49 Freq: Status: Active Protocol: Document 08/14/23 13:49 AG (Rec: 08/14/23 13:49 AG [id number]) Nutrition Malnutrition Evidence of Malnutrition Exists Yes Malnutrition (severe): Chronic Evidenced By Suboptimal Energy Intake ( Severe),Weight Loss (Severe) Clinical Problem Chronic Disease or Condition Related Malnutrition Etiology severe, chronic malnutrition related to inadequate energy intake d/t debility Signs/Symptoms as evidenced by unintentional 9% wt loss x 1 month, estimated PO intake meeting < 75% of estimated energy needs >1 month Status Active Problem Recommendation Dietitian Recommendations/Changes will adjust diet to 1800 calorie controlled/consistent CHO, will add glucerna 120mL 4x/day w/ medpass given signs/ symptoms of malnutrition Lab / Micro Data 08/15/23 07:36 08/15/23 06:47 Labs: Laboratory Results - last 24 hr 08/14/23 07:10: Iron 14 L, TIBC 197 L, Iron Saturation 7.1 L, Ferritin 1578 H, Folate 2.90 L 08/14/23 16:20: POC Glucose 89 08/14/23 17:10: Vitamin B12 250 08/14/23 20:55: POC Glucose 132 H 08/15/23 03:25: POC Glucose 62 L 08/15/23 03:50: POC Glucose 105 08/15/23 06:47: WBC Cancelled, Corrected WBC Cancelled, RBC Cancelled, Hgb Cancelled, Hct Cancelled, MCV Cancelled, MCH Cancelled, MCHC Cancelled, RDW Std Deviation Cancelled, RDW Coeff of Vijay Cancelled, Plt Count Cancelled, MPV Cancelled, Diff Path Review Cancelled, Sodium 137, Potassium 4.7, Chloride 106, Carbon Dioxide 28.0, Anion Gap 3 L, BUN 18, Creatinine 0.98, Estim Creat Clear Calc 38.51, Est GFR (MDRD) Af Amer 71, Est GFR (MDRD) Non-Af 58 L, BUN/Creatinine Ratio 18.4, Glucose 105, Calcium 10.3 H 08/15/23 07:02: POC Glucose 135 H 08/15/23 07:36: WBC 9.6, RBC 3.41 L, Hgb 9.1 L, Hct 28.8 L, MCV 84.5, MCH 26.7 L, MCHC 31.6 L, RDW Std Deviation 54.8 H, RDW Coeff of Vijay 17.6 H, Plt Count 452 H, MPV 10.7 08/15/23 08:37: POC Glucose 91 08/15/23 11:37: POC Glucose 191 H Micro: Microbiology 08/13/23 11:10 Blood Culture (Wb) - Anticubital Right Blood Culture - Preliminary Klebsiella pneumoniae sp pneum 08/13/23 12:40 Urine, Catheterized Urine Culture - Final Klebsiella pneumoniae sp pneum 08/13/23 12:05 Blood Culture (Wb) - Anticubital Right Blood Culture - Preliminary GNR lactose customer retention specialist 08/13/23 11:00 Nasal Secretion SARS-CoV-2 & FLU Antigen (Rapid) - Final Physical Exam Const alert, no apparent distress and average body habitus Constitutional Narrative: Pleasant elderly female, chronically ill-appearing, sitting comfortably in bedside chair, conversing normally, no acute distress. General Appearance: cooperative and comfortable HEENT normocephalic, head/scalp atraumatic, hearing grossly normal bilaterally, nasal mucous membranes and turbinates normal and moist oral mucous membranes Eyes PERRL, EOMs intact bilaterally and conjunctivae normal Neck full ROM, no lymphadenopathy and supple Lymph Lymphatic: no lymphadenopathy noted Chest inspection of chest normal Resp normal respiratory effort, normal air movement, no use of accessory muscles and clear to auscultation bilaterally Cardio regular rate, regular rhythm, no murmurs and peripheral pulses 2+ throughout GI normal to inspection, nondistended, normoactive bowel sounds, soft to palpation,non-tender and non-distended Back/Spine normal ROM Extremity normal to inspection and no pedal edema Skin no rashes or lesions noted Neuro moves all extremities and no focal motor deficits Psych mental status grossly normal Assessment & Plan Assessment/Plan (1) Falls: (2) Weakness: (3) Acute UTI: PLAN: Plan Patient is a 78-year-old female who presented to [facility] ED on 08/13/2023 with increasing generalized weakness and falls. 1. Generalized weakness Likely multifactorial due to dehydration with LIA, hypercalcemia and UTI. ? PT/OT/case management following. Treating UTI and LIA as noted below. Fall precautions in place. 2. UTI in setting of chronic urinary retention with self-catheterization UA on admit suggestive of UTI. WBC count elevated on admit as well. Initiated on ciprofloxacin due to allergies to other medications. IV fluids given in the ED. Serna catheter placed in the ED as well. ? Continue ciprofloxacin for now. Maintain Serna catheter. Trend CBC. Urine culture and blood cultures preliminarily positive for gram-negative wes lactose customer retention specialist, follow-up speciation and sensitivities. 3. LIA, resolved ? Creatinine 1.18 on admit, baseline around 0.7-0.8. Likely due to poor p.o. intake plus or minus underlying infection. Improved to baseline on hospital day2 after IV hydration. Continue to monitor BMP daily. Continue holding home lisinopril for now, restart as able. 4. Type 2 diabetes mellitus History of poorly controlled diabetes with very high insulin requirements. Homeregimen prior to admission of detemir 56 units twice daily, aspart 22 units twice daily with meals. ? Blood sugars have been low on multiple checks during this admission. Have suspicion patient may have significant reduced insulin requirements at this point, and have concern that low blood sugars may have been a factor in her recentweakness and falls. Will reduce to Lantus 20 units at night, Humalog 5 units twice daily with meals plus sliding scale. Monitor sugars closely. 5. Hyponatremia, resolved ? Sodium 127 on admit, improved to 136 after IV fluid resuscitation. Very likely hypovolemic hyponatremia initially. Monitor BMP daily. 6. Hypercalcemia, stable Calcium 10.5 on admit. PTH elevated at 153. Mild hypercalcemia could be secondary to primary hyperparathyroidism. ? Calcium initially improved with IV fluids, now stable. Monitor daily calcium. Plan for outpatient follow-up with PCP to address further as needed. 6. Acute on chronic normocytic anemia, stable Hemoglobin 10.0 on admit, baseline hemoglobin appears to be around 10-11. Hemoglobin decreased to 8.4 on hospital day 2. No active bleeding, may be due to hemodilution after IV fluids. Iron studies consistent with anemia of chronicdisease. ? Hemoglobin stable. Monitor daily CBC. Chronic medical conditions: ? Hypertension: Continue home diltiazem, Lopressor. Holding home lisinopril fornow, restart as needed. ? GERD: Continue home PPI. DVT prophylaxis: Heparin subcu CODE STATUS: Full code, verified Expected disposition: SNF, 2 to 3 days Total clinical time spent by myself addressing the patient's medical issues, reviewing all the data, and collaborating with patient's care team: 35 minutes. Charges/Coding Visit Charges Inpatient E&M: 38100 Subs Hosp L2 08/15/23 1328 <Electronically signed by Nestor Bartlett DO> Cosigner Signature (if applicable): CC: ~ Signed [facility] Work Phone: 1(537) 914-879112-15-2023 Progress note Author Nestor Bartlett [facility] August 14, 2023 3:08pm Note Date/Time August 14, 2023 2:58pm [facility] Medical Records Department [address] [place] [address] Progress Note - Hospitalist 08/14/23 1454 MR#: [id number] Acct: [id number] Name: OLGA DONALDSON Rep #:[id number] : 1945 78 From: Nestor roman DO PCP: Dr. Ramone Smiley MD Status:ADM IN Location: [place] [address] Reason for Visit Reason for Visit: Diagnoses Type 2 diabetes mellitus without complications (08/13/23) Hypo-osmolality and hyponatremia (08/13/23) Essential (primary) hypertension (08/13/23) Chronic obstructive pulmonary disease, unspecified (08/13/23) Unspecified asthma, uncomplicated (08/13/23) Gastro-esophageal reflux disease without esophagitis (08/13/23) Acute kidney failure, unspecified (08/13/23) Neuromuscular dysfunction of bladder, unspecified (08/13/23) Urinary tract infection, site not specified (08/13/23) Personal history of malignant neoplasm of breast (08/13/23) Subjective Subjective Patient seen at bedside. Sitting comfortably in bed, conversing normally, no acute distress. Patient states he feels comfortable at rest but notes that she has had falls about every day at home for the past several weeks. Lives at homewith her and son. States she generally has had worsening weakness over the past several weeks for unclear reason. She otherwise denies any fevers or chills today. Denies any other acute pain or discomfort. No other acute concerns. Objective Data Objective Data Vital Signs: Vital Signs Temp Pulse Resp BP Pulse Ox O2 Del Method 98.5 F 89 16 130/55 H 95 Room Air 08/14/23 09:15 08/14/23 09:58 08/14/23 09:15 08/14/23 09:58 08/14/23 09:15 08/14/23 13:46 Oxygen Delivery Method Room Air Weight: 60.1 kg Body Mass Index (BMI) 23.4 Intake & Output: Intake and Output for Last 24 Hours 08/12/23 08/13/23 08/14/23 23:59 23:59 23:59 Intake Total 1810.0 / 1810.0 2950 / 2950 Output Total 550 / 550 1280 / 1280 Balance 1260.0 / 1260.0 1670 / 1670 Medical Nutrition Assessment Dietitian: Malnutrition Criteria Met Start: 08/14/23 13:49 Freq: Status: Active Protocol: Document 08/14/23 13:49 AG (Rec: 08/14/23 13:49 AG [id number]) Nutrition Malnutrition Evidence of Malnutrition Exists Yes Malnutrition (severe): Chronic Evidenced By Suboptimal Energy Intake ( Severe),Weight Loss (Severe) Clinical Problem Chronic Disease or Condition Related Malnutrition Etiology severe, chronic malnutrition related to inadequate energy intake d/t debility Signs/Symptoms as evidenced by unintentional 9% wt loss x 1 month, estimated PO intake meeting < 75% of estimated energy needs >1 month Status Active Problem Recommendation Dietitian Recommendations/Changes will adjust diet to 1800 calorie controlled/consistent CHO, will add glucerna 120mL 4x/day w/ medpass given signs/ symptoms of malnutrition Lab / Micro Data 08/14/23 07:10 08/14/23 07:10 Labs: Laboratory Results - last 24 hr 08/13/23 15:55: Urine Osmolality 269, Ur Random Sodium 24, Urine Creatinine 37.60, Urine Potassium 8.0, Urine Chloride 20, Urine Urea Nitrogen 334 08/13/23 15:57: POC Glucose 201 H 08/13/23 21:57: POC Glucose 216 H 08/14/23 07:10: WBC 11.2 H, RBC 3.19 L, Hgb 8.4 L, Hct 26.8 L, MCV 84.0, MCH 26.3 L, MCHC 31.3 L, RDW Std Deviation 53.1 H, RDW Coeff of Vijay 17.3 H, Plt Count 382, MPV 10.3, Immature Gran % (Auto) 2.200 H, Neut % (Auto) 79.7 H, Lymph% (Auto) 11.1 L, Bacon % (Auto) 6.1, Eos % (Auto) 0.6, Baso % (Auto) 0.3, Absolute Neuts (auto) 9.0 H, Absolute Lymphs (auto) 1.25, Nucleated RBC % 0, Sodium 136, Potassium 3.2 L, Chloride 103, Carbon Dioxide 26.0, Anion Gap 7, BUN21 H, Creatinine 0.86, Estim Creat Clear Calc 43.88, Est GFR (MDRD) Af Amer 82, Est GFR (MDRD) Non-Af 68, BUN/Creatinine Ratio 24.4 H, Glucose 138 H, Serum Osmolality 285, Calcium 9.9, Phosphorus 1.7 L, Magnesium 2.1, Vitamin D 25-Hydroxy 39.9, TSH 0.01 L, Free T4 1.51 H, Free T3 pg/dL 1.9 L, PTH Intact 153.7 H 08/14/23 07:45: POC Glucose 138 H 08/14/23 12:14: POC Glucose 61 L Micro: Microbiology 08/13/23 12:40 Urine, Catheterized Urine Culture - Preliminary GNR lactose customer retention specialist 08/13/23 12:05 Blood Culture (Wb) - Anticubital Right Blood Culture - Preliminary GNR lactose customer retention specialist 08/13/23 11:10 Blood Culture (Wb) - Anticubital Right Blood Culture - Preliminary GNR lactose customer retention specialist 08/13/23 11:00 Nasal Secretion SARS-CoV-2 & FLU Antigen (Rapid) - Final Physical Exam Const alert, no apparent distress and average body habitus Constitutional Narrative: Pleasant elderly female, chronically ill-appearing, sitting comfortably in bed, conversing normally, no acute distress. General Appearance: cooperative and comfortable HEENT normocephalic, head/scalp atraumatic, hearing grossly normal bilaterally, nasal mucous membranes and turbinates normal and moist oral mucous membranes Eyes PERRL, EOMs intact bilaterally and conjunctivae normal Neck full ROM, no lymphadenopathy and supple Lymph Lymphatic: no lymphadenopathy noted Chest inspection of chest normal Resp normal respiratory effort, normal air movement, no use of accessory muscles and clear to auscultation bilaterally Cardio regular rate, regular rhythm, no murmurs and peripheral pulses 2+ throughout GI normal to inspection, nondistended, normoactive bowel sounds, soft to palpation,non-tender and non-distended Back/Spine normal ROM Extremity normal to inspection and no pedal edema Skin no rashes or lesions noted Neuro moves all extremities and no focal motor deficits Psych mental status grossly normal Assessment & Plan Assessment/Plan (1) Falls: (2) Weakness: (3) Acute UTI: PLAN: Plan Patient is a 78-year-old female who presented to [facility] ED on 08/13/2023 with increasing generalized weakness and falls. 1. Generalized weakness Likely multifactorial due to dehydration with LIA, hypercalcemia and UTI. ? PT/OT/case management following. Treating UTI and LIA as noted below. Fall precautions in place. 2. UTI in setting of chronic urinary retention with self-catheterization UA on admit suggestive of UTI. WBC count elevated on admit as well. Initiated on ciprofloxacin due to allergies to other medications. IV fluids given in the ED. Serna catheter placed in the ED as well. ? Continue ciprofloxacin for now. Maintain Serna catheter. Trend CBC. Urine culture and blood cultures preliminarily positive for gram-negative wes lactose customer retention specialist, follow-up speciation and sensitivities. 3. LIA, resolved ? Creatinine 1.18 on admit, baseline around 0.7-0.8. Likely due to poor p.o. intake plus or minus underlying infection. Improved to baseline on hospital day2 after IV hydration. Continue to monitor BMP daily. Continue holding home lisinopril for now, restart as able. 4. Hyponatremia, resolved ? Sodium 127 on admit, improved to 136 after IV fluid resuscitation. Very likely hypovolemic hyponatremia initially. Monitor BMP daily. 5. Hypercalcemia, improving ? Calcium 10.5 on admit, improved to 9.9 after IV fluid resuscitation. PTH elevated at 153. Mild hypercalcemia could be secondary to primary hyperparathyroidism. Monitor daily calcium. Plan for outpatient follow-up withP to address further as needed. 6. Acute on chronic normocytic anemia Hemoglobin 10.0 on admit, baseline hemoglobin appears to be around 10-11. Hemoglobin decreased to 8.4 on hospital day 2. No active bleeding, may be due to hemodilution after IV fluids. Chronic anemia with unclear etiology. ? Monitor daily CBC. Iron studies, B12, folate ordered. Chronic medical conditions: ? Hypertension: ? GERD: Continue home PPI. ? Type 2 diabetes mellitus: DVT prophylaxis: Heparin subcu CODE STATUS: Full code, verified Expected disposition: SNF, TBD Total clinical time spent by myself addressing the patient's medical issues, reviewing all the data, and collaborating with patient's care team: 35 minutes. Charges/Coding Visit Charges Inpatient E&M: 14480 Subs Hosp L2 08/14/23 1508 <Electronically signed by Nestor Bartlett DO> Cosigner Signature (if applicable): CC: ~ Signed [facility] Work Phone: 1(160) 359-243612-14-2023 Discharge summary Author [facility] August 13, 2023 3:29pm Note Date/Time August 13, 2023 10:40am [facility] Medical Records Department [address] [place] [address] Emergency Department Summary 08/13/23 MR#: [id number] Acct: [id number] Name: OLGA DONALDSON Rep #:[id number] : 1945 78 From: Robert Allison DO PCP: Dr. Ramone Smiley MD Status:ADM IN Location: [address] History of Present Illness Chief Complaint: Weakness Detail of Chief Complaint: Generalized weakness Informant: patient Narrative Narrative: Patient presents to the emergency department via EMS from home. Patient complaining of generalized weakness that she has had for weeks now. Patient falls at times and needs help getting back up. Today she had an appointment with her primary care physician but could not get up off the couch so her son called EMS. She lives with her son and her in a duplex. Patient has had subjective fever off and on. She denies cough out of the ordinary. She hadvomiting 2 weeks ago but that is now resolved. She denies any diarrhea. She denies abdominal pain. She denies chest pain. She self caths. [facility] Medical History Anemia Anxiety Aortic stenosis Asthma Carpal tunnel syndrome of right wrist Cellulitis and abscess of finger, unspecified Chronic idiopathic constipation Chronic renal failure, stage 3 (moderate) Colon polyp COPD (chronic obstructive pulmonary disease) Depression Diabetes Diabetic retinopathy Foraminal stenosis of lumbar region Former smoker GERD (gastroesophageal reflux disease) Goiter, nontoxic, multinodular History of malignant neoplasm of breast Hx of venous thrombosis and embolism Hypercalcemia Hyperlipidemia Hypertension Hypokalemia Hyponatremia Hypophosphatemia Iron deficiency anemia Irregular heart beat Leg weakness, bilateral Lumbar spinal stenosis Microcytic anemia Multiple thyroid nodules Neurogenic bladder Paronychia of left index finger Peripheral artery disease Polypharmacy Pruritus Retinopathy Rhinitis Strain of right rotator cuff capsule Thyroid goiter Type 2 diabetes mellitus Urinary retention with incomplete bladder emptying Urine retention UTI (urinary tract infection) Vaginal cyst Vitamin D deficiency Home Medications lisinopril 40 mg tablet 40 mg PO BID BLOOD PRESSURE 12/25/14 [History Last Taken 08/12/23] aspirin 81 mg chewable tablet 81 mg PO DAILY HERT HEALTH 01/21/16 [History Last Taken 08/12/23] albuterol sulfate 90 mcg/actuation aerosol inhaler 2 puff inhalation Q4H PRN Sob&/Or Wheezing 08/16/18 [History Last Taken 07/10/20 06:30] diltiazem HCl 180 mg tablet,extended release 24 hr 180 mg PO DAILY BLOOD PRESSURE 08/16/18 [History Last Taken 08/12/23] magnesium oxide 400 mg (241.3 mg magnesium) tablet 400 mg PO BID SUPPLEMENT 08/16/18 [History Last Taken 08/12/23] metoprolol tartrate 25 mg tablet 25 mg PO BID BLOOD PRESSURE 08/16/18 [History Last Taken 08/12/23] insulin aspart U-100 100 unit/mL subcutaneous solution 22 unit subcut BIDCM DIABETES 12/02/19 [History Last Taken 08/12/23] insulin detemir U-100 100 unit/mL (3 mL) subcutaneous pen 56 units subcut BIDCM DIABETES 12/02/19 [History Last Taken 08/12/23] pantoprazole 40 mg tablet,delayed release 40 mg PO QHS ACID REFLUX 12/02/19 [History Last Taken 08/12/23] empagliflozin 10 mg tablet (Jardiance) 10 mg PO DAILY DIABETES 10/18/20 [History Last Taken 08/12/23] sitagliptin phosphate 50 mg tablet (Januvia) 50 mg PO DAILY DIABETES 10/18/20 [History Last Taken 08/12/23] budesonide-formoterol HFA 160 mcg-4.5 mcg/actuation aerosol inhaler (Symbicort) 2 puff inhalation BID 12/06/21 [History Last Taken 08/12/23] multivitamin 1 tab PO DAILY 12/06/21 [History Last Taken 08/12/23] potassium chloride 20 mEq tablet,extended release(part/cryst) (Klor-Con M) 40 meq PO BID SUPPLEMENT 12/06/21 [History Last Taken 08/12/23] pravastatin 20 mg tablet 20 mg PO DAILY CHOLESTEROL 12/06/21 [History Last Taken 08/12/23] ascorbic acid (vitamin C) 250 mg tablet (Vitamin C) 250 mg PO DAILY SUPPLEMENT 08/13/23 [History Last Taken 08/12/23] azelastine 137 mcg (0.1 %) nasal spray aerosol 137 mcg intranasal BID RUNNY NOSE08/13/23 [History Last Taken 08/12/23] cod liver oil 1 cap PO DAILY SUPPLEMENT 08/13/23 [History Last Taken 08/12/23] dulaglutide 0.75 mg/0.5 mL subcutaneous pen injector (Trulicity) 0.75 mg subcut MO DIABETES 08/13/23 [History Last Taken 08/10/23] fiber 1 cap PO DAILY CONSTIPATION 08/13/23 [History Last Taken 08/12/23] gabapentin 100 mg capsule 100 mg PO QHS NERVE PAIN 08/13/23 [History Last Taken 08/12/23] roflumilast 500 mcg tablet 500 mcg PO DAILY COPD 08/13/23 [History Last Taken 08/12/23] Allergy/AdvReac Type Severity Reaction Status Date / Time adhesive tape [tape] Allergy NEEDS Verified 08/13/23 10:00 FOLLOW-UP amoxicillin Allergy YEAST Verified 08/13/23 10:00 INFECTION cephalexin monohydrate Allergy Rash Verified 08/13/23 10:00 [From Keflex] clopidogrel bisulfate Allergy Other Verified 08/13/23 10:00 [From Plavix] Family History Daughter Breast cancer Father Hypertension Sister Cancer Kidney disease Mother Pancreatic cancer Surgical History H/O dilation and curettage (~07/10/20) History of Achilles tendon repair History of lumpectomy of left breast Retinopathy S/P fine needle aspiration (~10/2020) Social History household members: spouse Smoking Status: Former smoker alcohol intake: never substance use type: does not use caffeine: Yes what type of physical activity do you participate in: none seatbelt use: always do you feel safe at home: Yes additional social history: [employer]- retired ROS ROS ED Review of Systems ROS Unobtainable: other Constitutional Constitutional ED: Reports lethargy; Denies chills, fever(s), sweats or weight loss Eyes Eyes: Denies blurry vision, change in vision or diplopia ENT ENT ED: Denies rhinorrhea or sore throat Cardiovascular Cardiovascular: Denies chest pain, orthopnea or racing heartbeat Respiratory/Chest Respiratory/Chest: Reports cough; Denies dyspnea, dyspnea on exertion, orthopneaor sputum Gastrointestinal Gastrointestinal: Denies abdominal pain, diarrhea, nausea or vomiting Genitourinary Genitourinary ED: Denies dysuria, hematuria or urinary frequency Musculoskeletal Musculoskeletal: Denies arthralgias, back pain, myalgias or neck pain Integumentary Denies abscess, Abrasions or rash Neurologic Neurologic: Reports weakness; Denies headache(s) Psychiatric Psychiatric: Denies anxiety, depression or suicidal thoughts Endocrine Endocrinology: Denies polydipsia, polyphagia or polyuria Hematologic/Lymphatic Hematologic/Lymphatic: Denies easy bleeding, easy bruising or lymphadenopathy Allergic/Immunologic Allergic/Immunologic ED: Denies mouth swelling, tongue swelling or urticaria EXAM Physical Exam Const Vital Signs: 08/13/23 10:03 08/13/23 10:12 08/13/23 14:15 Temperature 97.9 F 98.6 F Temperature Source Temporal Oral Pulse Rate 116 H 102 H Respiratory Rate 18 20 H Respiratory Effort Normal Non-Labored Respiratory Pattern Normal Blood Pressure 126/58 H 152/59 H Blood Pressure Mean 80 90 Pulse Ox 99 97 Oxygen Delivery Method Room Air Room Air 08/13/23 14:17 08/13/23 14:18 Temperature 98.6 F 98.6 F Temperature Source Oral Pulse Rate 107 H 107 H Respiratory Rate 20 H 20 H Respiratory Effort Respiratory Pattern Blood Pressure 152/59 H 152/59 H Blood Pressure Mean 90 90 Pulse Ox 97 97 Oxygen Delivery Method Room Air Positive well nourished and well developed General Appearance ED: well developed and NAD HEENT Reports TM's clear and moist mucous membranes normocephalic and atraumatic; Negative for trauma or tenderness Tympanic Membrane ED: Yes TM's clear Eyes PERRL and EOMs intact bilaterally General Eye ED: Negative for pale conjunctiva or scleral icterus Neck no lymphadenopathy, supple and no JVD General: Negative for tenderness Chest Wall inspection of chest normal and palpation of chest normal Chest: Negative for tenderness Resp normal respiratory effort and clear to auscultation bilaterally Effort and Inspection: Negative for respiratory distress or pain with movement Auscultation: Negative for rhonchi, wheezes or diminished lung sounds Cardio regular rhythm, S1 normal heart sound, S2 normal heart sound and no murmurs Rate: tachycardic Peripheral Pulses: pulses 2+ throughout GI normal to inspection, nondistended, normoactive bowel sounds, soft to palpation,non-tender, non-distended and no masses Back/Spine no CVA tenderness and no thoracic nor lumbar tenderness Extremity normal to inspection General Extremety ED: Negative for edema General Extremity: Negative for edema Neuro oriented x3, CN's II-XII intact bilaterally, no sensory deficits noted and gait normal Sensorium / Orientation: awake, alert, oriented to person, oriented to place andoriented to time Motor Exam: strength 5/5 throughout and strength abnormal Psych mental status grossly normal Skin no rashes or lesions noted and no wounds MDM MDM MDM Narrative Medical decision making narrative: Patient presents to the emergency department with generalized weakness and frequent falls. IV line established. CBC with differential count of 14.7 with hemoglobin 10 and hematocrit 32.6. Platelet count 412. Chemistries unremarkable other than a sodium of 127. Patient's BUN 31 and creatinine 1.18. Lactate was 1.2. LFTs unremarkable. Urinalysis positive for 500 excite esterase and 10-25 whites +3 bacteria. Urine culture was sent. COVID and flu testing were negative. Patient started on ciprofloxacin IV as she has multiple drug allergies. Case discussed with hospitalist will evaluate patient for admission. Lab Data Attestation: I reviewed the patient's lab results. Labs: Laboratory Results - last 24 hr 08/13/23 08/13/23 08/13/23 10:15 11:10 12:40 WBC 14.7 H RBC 3.83 L Hgb 10.0 L Hct 32.6 L MCV 85.1 MCH 26.1 L MCHC 30.7 L RDW Std Deviation 53.7 H RDW Coeff of Vijay 17.2 H Plt Count 412 MPV 10.8 Immature Gran % (Auto) 1.400 H Neut % (Auto) 82.7 H Lymph % (Auto) 9.4 L Bacon % (Auto) 6.1 Eos % (Auto) 0.1 Baso % (Auto) 0.3 Absolute Neuts (auto) 12.1 H Absolute Lymphs (auto) 1.37 Nucleated RBC % 0 Sodium 127 L Potassium 3.8 Chloride 92 L Carbon Dioxide 23.0 Anion Gap 12 BUN 31 H Creatinine 1.18 H Estim Creat Clear Calc 31.98 Est GFR (MDRD) Af Amer 57 L Est GFR (MDRD) Non-Af 47 L BUN/Creatinine Ratio 26.3 H Glucose 212 H Lactic Acid 1.2 Calcium 10.5 H Total Bilirubin 0.60 AST 36 ALT 29 Alkaline Phosphatase 105 Troponin I High Sens 39 Total Protein 7.8 Albumin 2.2 L Globulin 5.6 H Albumin/Globulin Ratio 0.4 L Urine Color Yellow Urine Clarity Sl. Cloudy Urine pH 5.0 Ur Specific Randolph 1.015 Urine Protein 30 H Urine Glucose (UA) 1000 H Urine Ketones 50 H Urine Occult Blood 50 H Urine Nitrite Negative Urine Bilirubin Negative Urine Urobilinogen Normal Ur Leukocyte Esterase 500 H Urine RBC 0-5 SEEN Urine WBC 10-25 SEEN Ur Squamous Epith Cells 0 SEEN Urine Bacteria 3+ Urine Mucus 0 SEEN Radiography Diagnostic Testing: Clinical Impression(s) from Imaging Studies Chest X-Ray 08/13/23 10:45 IMPRESSION: Hyperinflation. The lungs are clear. Electronically Signed: Robert Randall MD at 11:04 EST , 1 view chest x-ray obtained interpreted by myself as no evidence of infiltrate or pneumothorax or acute disease process. Radiology in agreement. EKG Initial EKG: Attestation: I personally reviewed and interpreted this EKG as follows: Comments: Sinus tachycardia with a rate of 107 bpm with no acute ST segment changes. Discharge Plan Dx/Rx/DC Orders Clinical Impression: LIA (acute kidney injury), Weakness, Acute UTI, Falls, Acute hyponatremia Disposition Disposition: Acute Care [facility] Discharge Date/Time: 08/13/23 14:54 What to do if you have Problems For any increased pain, shortness of breath, bleeding, nausea or vomiting, chestpain, or any unexpected problems, contact your Primary Care Provider. Call [facility] ([phone]) or report to the closest Emergency Room. Call 911 if necessary. 08/13/23 1529 <Electronically signed by Robert Allison DO> Cosigner Signature (if applicable): CC: Dr. Ramone Smiley MD ~ Signed [facility] Work Phone: 1(651) 384-547712-14-2023 History and physical note Author Heydi Amaya [facility] August 13, 2023 2:47pm Note Date/Time August 13, 2023 2:33pm [facility] Medical Records Department [address] [place] [id number] H&P Exam - Hospitalist 08/13/23 1431 MR#: [id number] Acct: [id number] Name: OLGA DONALDSON Rep #:[id number] : 1945 78 From: Heydi Amaya MD PCP: Dr. Ramone Smiley MD Status:ADM IN Location: U [id number] HPI - General General Date of Admission: 08/13/23 Date of Service: 08/13/23 Chief Complaint: Increasing weakness HPI Narrative OLGA DONALDSON, is [id number] female history of GERD, COPD, hypertension, diabetes, chronic urinary retention with self cathing presented to [facility] 08/13/2023 with increasing generalized weakness and falls. Weakness has been increasing over the past several weeks and has fallen multipletimes requiring help to physically get back up. Today had appointment with PCP but cannot get up off the couch due to weakness to son called EMS. Has had subjective fever off and on but denied any other focal complaints. In the ED patient found to have white blood cell count of 14.7 with left shift, worsened hyponatremia from baseline with a sodium of 127, LIA with creatinine of 1.18 with most recent creatinine 0.83 less than a month ago, calcium of 10.5 and evidence of UTI. Given the above as well as her worsening generalized weakness hospitalist contacted for admission. Patient evaluated at bedside with a familymember present. She reports increasing weakness and falls for the past several weeks with last fall being about last Thursday, reports throughout her fall she had a bruised hip and her back was somewhat sore but no other physical complaints from falling. Has been so weak she has had a hard time getting off the couch. A week or 2 ago she had a period where she was vomiting up clear mucus for a while but this is completely resolved. No abdominal pain, has been self catheterizing for [address] Dr[address] Anguiano and she reportsthis is because of incomplete emptying has not been having any problems with this recently. Denies any chest pain or shortness of breath, has had some subjective chills but no measured fevers. No other acute complaints at this time. [facility] Medical History Anemia Anxiety Aortic stenosis Asthma Carpal tunnel syndrome of right wrist Cellulitis and abscess of finger, unspecified Chronic idiopathic constipation Chronic renal failure, stage 3 (moderate) Colon polyp COPD (chronic obstructive pulmonary disease) Depression Diabetes Diabetic retinopathy Foraminal stenosis of lumbar region Former smoker GERD (gastroesophageal reflux disease) Goiter, nontoxic, multinodular History of malignant neoplasm of breast Hx of venous thrombosis and embolism Hypercalcemia Hyperlipidemia Hypertension Hypokalemia Hyponatremia Hypophosphatemia Iron deficiency anemia Irregular heart beat Leg weakness, bilateral Lumbar spinal stenosis Microcytic anemia Multiple thyroid nodules Neurogenic bladder Paronychia of left index finger Peripheral artery disease Polypharmacy Pruritus Retinopathy Rhinitis Strain of right rotator cuff capsule Thyroid goiter Type 2 diabetes mellitus Urinary retention with incomplete bladder emptying Urine retention UTI (urinary tract infection) Vaginal cyst Vitamin D deficiency Home Medications lisinopril 40 mg tablet 40 mg PO BID BLOOD PRESSURE 12/25/14 [History Last Taken 08/12/23] aspirin 81 mg chewable tablet 81 mg PO DAILY [facility] 01/21/16 [History Last Taken 08/12/23] albuterol sulfate 90 mcg/actuation aerosol inhaler 2 puff inhalation Q4H PRN Sob&/Or Wheezing 08/16/18 [History Last Taken 07/10/20 06:30] diltiazem HCl 180 mg tablet,extended release 24 hr 180 mg PO DAILY BLOOD PRESSURE 08/16/18 [History Last Taken 08/12/23] magnesium oxide 400 mg (241.3 mg magnesium) tablet 400 mg PO BID SUPPLEMENT 08/16/18 [History Last Taken 08/12/23] metoprolol tartrate 25 mg tablet 25 mg PO BID BLOOD PRESSURE 08/16/18 [History Last Taken 08/12/23] insulin aspart U-100 100 unit/mL subcutaneous solution 22 unit subcut BIDCM DIABETES 12/02/19 [History Last Taken 08/12/23] insulin detemir U-100 100 unit/mL (3 mL) subcutaneous pen 56 units subcut BIDCM DIABETES 12/02/19 [History Last Taken 08/12/23] pantoprazole 40 mg tablet,delayed release 40 mg PO QHS ACID REFLUX 12/02/19 [History Last Taken 08/12/23] empagliflozin 10 mg tablet (Jardiance) 10 mg PO DAILY DIABETES 10/18/20 [History Last Taken 08/12/23] sitagliptin phosphate 50 mg tablet (Januvia) 50 mg PO DAILY DIABETES 10/18/20 [History Last Taken 08/12/23] budesonide-formoterol HFA 160 mcg-4.5 mcg/actuation aerosol inhaler (Symbicort) 2 puff inhalation BID 12/06/21 [History Last Taken 08/12/23] multivitamin 1 tab PO DAILY 12/06/21 [History Last Taken 08/12/23] potassium chloride 20 mEq tablet,extended release(part/cryst) (Klor-Con M) 40 meq PO BID SUPPLEMENT 12/06/21 [History Last Taken 08/12/23] pravastatin 20 mg tablet 20 mg PO DAILY CHOLESTEROL 12/06/21 [History Last Taken 08/12/23] ascorbic acid (vitamin C) 250 mg tablet (Vitamin C) 250 mg PO DAILY SUPPLEMENT 08/13/23 [History Last Taken 08/12/23] azelastine 137 mcg (0.1 %) nasal spray aerosol 137 mcg intranasal BID RUNNY NOSE08/13/23 [History Last Taken 08/12/23] cod liver oil 1 cap PO DAILY SUPPLEMENT 08/13/23 [History Last Taken 08/12/23] dulaglutide 0.75 mg/0.5 mL subcutaneous pen injector (Trulicity) 0.75 mg subcut MO DIABETES 08/13/23 [History Last Taken 08/10/23] fiber 1 cap PO DAILY CONSTIPATION 08/13/23 [History Last Taken 08/12/23] gabapentin 100 mg capsule 100 mg PO QHS NERVE PAIN 08/13/23 [History Last Taken 08/12/23] roflumilast 500 mcg tablet 500 mcg PO DAILY COPD 08/13/23 [History Last Taken 08/12/23] Allergy/AdvReac Type Severity Reaction Status Date / Time adhesive tape [tape] Allergy NEEDS Verified 08/13/23 10:00 FOLLOW-UP amoxicillin Allergy YEAST Verified 08/13/23 10:00 INFECTION cephalexin monohydrate Allergy Rash Verified 08/13/23 10:00 [From Keflex] clopidogrel bisulfate Allergy Other Verified 08/13/23 10:00 [From Plavix] Family History Daughter Breast cancer Father Hypertension Sister Cancer Kidney disease Mother Pancreatic cancer Surgical History H/O dilation and curettage (~07/10/20) History of Achilles tendon repair History of lumpectomy of left breast Retinopathy S/P fine needle aspiration (~10/2020) Social History household members: spouse Smoking Status: Former smoker alcohol intake: never substance use type: does not use caffeine: Yes what type of physical activity do you participate in: none seatbelt use: always do you feel safe at home: Yes additional social history: [employer]- retired ROS ROS Narrative General: Has had some subjective chills HENT: Denies headache, denies stuffy nose, denies sore throat EYES: Denies changes in vision Resp: Denies cough, denies shortness of breath Cardiac: Denies chest pain GI: Denies abdominal pain, denies changes in bowel, denies nausea/vomiting : Denies changes in urination, chronically self catheterizes Extremity: Denies swelling MSK: Generalized weakness Neuro: Denies any numbness/tingling Heme: Denies any bleeding or bruising Skin: Denies rashes Psychiatric: No complaints voiced Vital Signs Vital Signs Vital Signs: 08/13/23 10:03 08/13/23 10:12 08/13/23 14:15 Temperature 97.9 F 98.6 F Temperature Source Temporal Oral Pulse Rate 116 H 102 H Respiratory Rate 18 20 H Respiratory Effort Normal Non-Labored Respiratory Pattern Normal Blood Pressure 126/58 H 152/59 H Blood Pressure Mean 80 90 Pulse Ox 99 97 Oxygen Delivery Method Room Air Room Air 08/13/23 14:17 08/13/23 14:18 Temperature 98.6 F 98.6 F Temperature Source Oral Pulse Rate 107 H 107 H Respiratory Rate 20 H 20 H Respiratory Effort Respiratory Pattern Blood Pressure 152/59 H 152/59 H Blood Pressure Mean 90 90 Pulse Ox 97 97 Oxygen Delivery Method Room Air Weight Weight: 63 kg Body Mass Index (BMI) 24.5 Physical Exam Narrative General: Alert, no apparent distress HEENT: normocephalic Eyes: Anicteric, normal conjunctiva, extraocular movements grossly intact, multiple skin tags Neck: Supple Respiratory: Clear to auscultation bilaterally, normal respiratory effort Cardiovascular: Regular rate and rhythm GI: Soft, nontender, nondistended Extremities: No edema Musculoskeletal: Moving all extremities Neuro: No overt focal neurological deficits Skin: No rashes appreciated Psych: Cooperative Results Lab / Micro Data 08/13/23 10:15 08/13/23 10:15 Labs: Laboratory Results - last 24 hr 08/13/23 10:15: WBC 14.7 H, RBC 3.83 L, Hgb 10.0 L, Hct 32.6 L, MCV 85.1, MCH 26.1 L, MCHC 30.7 L, RDW Std Deviation 53.7 H, RDW Coeff of Vijay 17.2 H, Plt Count 412, MPV 10.8, Immature Gran % (Auto) 1.400 H, Neut % (Auto) 82.7 H, Lymph% (Auto) 9.4 L, Bacon % (Auto) 6.1, Eos % (Auto) 0.1, Baso % (Auto) 0.3, AbsoluteNeuts (auto) 12.1 H, Absolute Lymphs (auto) 1.37, Nucleated RBC % 0, Sodium 127 L, Potassium 3.8, Chloride 92 L, Carbon Dioxide 23.0, Anion Gap 12, BUN 31 H, Creatinine 1.18 H, Estim Creat Clear Calc 31.98, Est GFR (MDRD) Af Amer 57 L, Est GFR (MDRD) Non-Af 47 L, BUN/Creatinine Ratio 26.3 H, Glucose 212 H, Calcium 10.5 H, Total Bilirubin 0.60, AST 36, ALT 29, Alkaline Phosphatase 105, TroponinI High Sens 39, Total Protein 7.8, Albumin 2.2 L, Globulin 5.6 H, Albumin/Globulin Ratio 0.4 L 08/13/23 11:10: Lactic Acid 1.2 08/13/23 12:40: Urine Color Yellow, Urine Clarity Sl. Cloudy, Urine pH 5.0, Ur Specific Randolph 1.015, Urine Protein 30 H, Urine Glucose (UA) 1000 H, Urine Ketones 50 H, Urine Occult Blood 50 H, Urine Nitrite Negative, Urine Bilirubin Negative, Urine Urobilinogen Normal, Ur Leukocyte Esterase 500 H, Urine RBC 0-5 SEEN, Urine WBC 10-25 SEEN, Ur Squamous Epith Cells 0 SEEN, Urine Bacteria 3+, Urine Mucus 0 SEEN Micro: Microbiology 08/13/23 11:00 Nasal Secretion SARS-CoV-2 & FLU Antigen (Rapid) - Final Imagaing Radiology Impression Chest X-Ray 08/13/23 10:45 IMPRESSION: Hyperinflation. The lungs are clear. Electronically Signed: Robert Randall MD at 11:04 EST Reading Location ID and State: 3 [facility] , Service support , Assessment & Plan Assessment/Plan (1) LIA (acute kidney injury): (2) Acute hyponatremia: (3) Acute UTI: (4) Asthma: (5) COPD (chronic obstructive pulmonary disease): (6) GERD (gastroesophageal reflux disease): (7) History of malignant neoplasm of breast: (8) Hypertension: (9) Neurogenic bladder: (10) Type 2 diabetes mellitus: PLAN: Plan # Generalized weakness -Likely multifactorial contributed to by dehydration with LIA, hypercalcemia, UTI as well as hyponatremia -Workup and management as below -Consult PT/OT -CM and SW c/s # UTI in setting of chronic urinary retention with self-catheterization -UA suggestive of UTI -Also has elevated white blood cell count -Blood cultures and urine culture -Due to allergies patient started on Cipro, continue Cipro -IV fluids -Given her urinary retention and UTI will place temporary Serna # LIA -May be due to poor p.o. intake versus underlying infection versus hypercalcemiacausing dehydration -IV fluids -Antibiotics -If does not improve with conservative measures will need further workup -Hold home lisinopril # Hyponatremia -Baseline quite variable, most recently 131 and is down to 127 -Will obtain urine and serum studies to better evaluate # Hypercalcemia -Will hydrate and obtain further workup -Vitamin D, mag, Phos, PTH # COPD -Continue home medications # Hypertension -Continue home medications but will hold lisinopril due to LIA #GERD -Continue PPI #Type 2 diabetes mellitus -Glucose checks and sliding scale insulin -Long-acting and Premeal insulin -Hold oral hypoglycemics #DVT ppx: Heparin subcu Heydi Amaya MD Charges/Coding Visit Charges Inpatient E&M: 28989 Init Hosp L2 08/13/23 1447 <Electronically signed by Heydi Amaya MD> Cosigner Signature (if applicable): CC: Dr. Ramone Smiley MD; Dr. Heydi Amaya MD~ Signed [facility] Work Phone: 1(877) 489-401705-31-[address] Lockwood [facility] January 28, 2023 4:30pm Note Date/Time January 28, 2023 3:17p m [facility] Medical Records Department [address] [place] [address] Emergency Department Summary 01/28/23 MR#: [id number] Acct: [id number] Name: OLGA DONALDSON Rep #:[id number] : 1945 78 From: Joseph Lockwood MD PCP: Dr. Ramone Smiley MD Status:REG ER Location: ED HPI History of Present Illness Chief Complaint: Hypertension Narrative Narrative: Patient has no symptoms. She was seen by podiatry who noticed high blood pressure and sent her to her PCP, he was busy and was sent to the ED. She has no chest pain. She has no shortness of breath. She does not have a headache she does not have any vision changes no neurological symptoms and she feels at her baseline. The only thing she is complaining about is her chronic back pain which she has every single day. [facility] Medical History Anemia Anxiety Aortic stenosis Asthma Asthma Carpal tunnel syndrome of right wrist Cellulitis and abscess of finger, unspecified Chronic idiopathic constipation Chronic renal failure, stage 3 (moderate) Colon polyp COPD (chronic obstructive pulmonary disease) COPD (chronic obstructive pulmonary disease) Depression Diabetes Diabetic retinopathy Foraminal stenosis of lumbar region Former smoker GERD (gastroesophageal reflux disease) GERD (gastroesophageal reflux disease) Goiter, nontoxic, multinodular History of constipation History of malignant neoplasm of breast Hx of venous thrombosis and embolism Hypercalcemia Hypercholesteremia Hyperlipidemia Hypertension Hypertension Hypokalemia Hyponatremia Hypophosphatemia Iron deficiency anemia Irregular heart beat Leg weakness, bilateral Lumbar spinal stenosis Microcytic anemia Multiple thyroid nodules Neurogenic bladder Paronychia of left index finger Peripheral artery disease Polypharmacy Pruritus Retinopathy Rhinitis Strain of right rotator cuff capsule Thyroid goiter Type 2 diabetes mellitus Urinary retention with incomplete bladder emptying Urine retention UTI (urinary tract infection) Vaginal cyst Vitamin D deficiency Home Medications lisinopril 40 mg tablet 40 mg PO BID BP 12/25/14 [History Last Taken 07/10/20 06:30] aspirin 81 mg chewable tablet 81 mg PO DAILY@0800 cardiac health 01/21/16 [History Last Taken 01/20/16] albuterol sulfate 90 mcg/actuation aerosol inhaler 2 puff inhalation Q4H PRN PRNSob &/Or Wheezing 08/16/18 [History Last Taken 07/10/20 06:30] diltiazem HCl 180 mg tablet,extended release 24 hr 180 mg PO DAILY BLOOD PRESSURE 08/16/18 [History Last Taken 07/10/20 06:30] magnesium oxide 400 mg (241.3 mg magnesium) tablet 400 mg PO BID SUPPLEMENT 08/16/18 [History Last Taken Unknown] metoprolol tartrate 25 mg tablet 25 mg PO BID BLOOD PRESSURE 08/16/18 [History Last Taken 07/10/20 06:30] insulin aspart U-100 100 unit/mL subcutaneous solution 22 unit SQ BIDCM /03/20 [History Last Taken Unknown] insulin detemir U-100 100 unit/mL (3 mL) subcutaneous pen 56 units subcut BIDCM DIABETES 12/02/19 [History Last Taken Unknown] pantoprazole 40 mg tablet,delayed release 40 mg PO QHS reflux 12/02/19 [History Last Taken 07/10/20 06:30] polyethylene glycol 3350 17 gram oral powder packet 0.5 ea PO BID constipation 12/02/19 [History Last Taken Unknown] vitamin C 500 mg-multivitamin with minerals chewable tablet 250 mg PO DAILY vitamin 12/02/19 [History Last Taken Unknown] gabapentin 300 mg capsule 100 mg PO QHS 01/24/20 [History Last Taken Unknown] empagliflozin 10 mg tablet (Jardiance) 10 mg PO DAILY 10/18/20 [History Last Taken Unknown] sitagliptin phosphate 50 mg tablet (Januvia) 50 mg PO DAILY 10/18/20 [History Last Taken Unknown] azelastine 137 mcg (0.1 %) nasal spray aerosol 1 spray intranasal BID 12/06/21 [History Last Taken Unknown] budesonide-formoterol HFA 160 mcg-4.5 mcg/actuation aerosol inhaler (Symbicort) 2 puff inhalation BID 12/06/21 [History Last Taken Unknown] cholecalciferol (vitamin D3) 1,250 mcg (50,000 unit) capsule 1,250 mcg PO QWEEK 12/06/21 [History Last Taken Unknown] cod liver oil 1 cap PO DAILY 12/06/21 [History Last Taken Unknown] multivitamin 1 tab PO DAILY 12/06/21 [History Last Taken Unknown] potassium chloride 20 mEq tablet,extended release(part/cryst) (Klor-Con M) 40 meq PO BID 12/06/21 [History Last Taken Unknown] pravastatin 20 mg tablet 20 mg PO DAILY 12/06/21 [History Last Taken Unknown] psyllium husk 0.4 gram capsule (Daily Fiber) 0.4 g PO DAILY 12/06/21 [History Last Taken Unknown] roflumilast 250 mcg tablet (Daliresp) 500 mcg PO DAILY 12/06/21 [History Last Taken Unknown] dulaglutide 0.75 mg/0.5 mL subcutaneous pen injector (Trulicity) 0.75 mg subcut QWEEK 07/07/22 [History Last Taken Unknown] cholecalciferol (vitamin D3) 25 mcg (1,000 unit) capsule (Vitamin D3) 25 mcg PO DAILY 01/08/23 [History Last Taken Unknown] Allergy/AdvReac Type Severity Reaction Status Date / Time adhesive tape [tape] Allergy NEEDS Verified 01/28/23 14:56 FOLLOW-UP amoxicillin Allergy YEAST Verified 01/28/23 14:56 INFECTION cephalexin monohydrate Allergy Rash Verified 01/28/23 14:56 [From Keflex] clopidogrel bisulfate Allergy Other Verified 01/28/23 14:56 [From Plavix] Family History Daughter Breast cancer Father Hypertension Sister Cancer Kidney disease Mother Pancreatic cancer Surgical History H/O dilation and curettage (~07/10/20) History of Achilles tendon repair History of lumpectomy of left breast Retinopathy S/P fine needle aspiration (~10/2020) Social History household members: spouse Smoking Status: Former smoker alcohol intake: never substance use type: does not use caffeine: Yes what type of physical activity do you participate in: none seatbelt use: always do you feel safe at home: Yes additional social history: [employer]- retired ROS ROS ED ROS Narrative Past medical history: Reviewed Medications: Reviewed Social history: Noncontributory Review of systems: All systems negative except as indicated General: No fever Eyes: No visual changes ENT: No upper airway congestion, normal voice Neck: No neck pain Cardiovascular: No chest pain Respiratory: No shortness of breath or cough Gastrointestinal: No abdominal pain, nausea vomiting or diarrhea Genitourinary: No dysuria Musculoskeletal: Back pain as in HPI Skin: No rash Neurological: No memory loss, confusion or any focal weakness EXAM Physical Exam Narrative Exam Narrative: Physical exam General: Well nourished, Well developed, No Acute Distress Head: Normocephalic, Atraumatic Eyes: Conjunctiva not pale ENT: Moist mucous membranes Neck: Supple, Nontender, No lymphadenopathy Cardiovascular: Regular rate, Regular rhythm Respiratory: No distress, CTA bilaterally Abdomen: Soft, Nontender, Nondistended Back: Slight lumbar tenderness. Extremities: Nontender, No edema Skin: Normal color, No rash Neurological: Alert, Normal Strength, Normal Sensation Const Vital Signs: 01/28/23 14:54 01/28/23 14:54 01/28/23 15:13 Temperature 97.8 F Temperature Source Temporal Pulse Rate 92 84 Respiratory Rate 16 25 H Respiratory Effort Normal Blood Pressure 186/69 H 168/104 H Blood Pressure Mean 108 125 Pulse Ox 99 97 Oxygen Delivery Method Room Air Room Air MDM MDM MDM Narrative Medical decision making narrative: Patient has a history of hypertension. She appears slightly dehydrated I gave her fluids and her blood pressure significantly improved it is now 177/66 as I walked into the room. I did not give her any medications for her high blood pressure. CBC and CMP interpreted by me were normal. I do not believe the patient needs troponins she does not have any chest pain or shortness of breath or any cardiac symptoms. Patient does not have a headache, I do not believe sheneeds CT of the head she has no headache or vision changes. She does not meet criteria for admission. She appears well. I will discharge her in stable condition. In talking to her she did say she was eating a lot of popcorn recently and ate salted and buttered. This could also affect her blood pressureand I warned her against this and told her to eat plain popcorn instead. Otherwise she can follow-up with her PCP. Lab Data Labs: Laboratory Results - last 24 hr 01/28/23 01/28/23 13:40 13:40 WBC 6.6 RBC 3.83 L Hgb 11.1 L Hct 33.6 L MCV 87.7 MCH 29.0 MCHC 33.0 D RDW Std Deviation 47.3 H RDW Coeff of Vijay 14.8 H Plt Count 285 MPV 9.3 Immature Gran % (Auto) 0.200 Neut % (Auto) 56.6 Lymph % (Auto) 34.2 Bacon % (Auto) 5.6 Eos % (Auto) 2.6 Baso % (Auto) 0.8 Absolute Neuts (auto) 3.8 Absolute Lymphs (auto) 2.27 Nucleated RBC % 0 Sodium 136 Potassium 3.8 Chloride 102 Carbon Dioxide 27.0 Anion Gap 7 BUN 9 Creatinine 0.78 Estim Creat Clear Calc 37.74 Est GFR (MDRD) Af Amer 91 Est GFR (MDRD) Non-Af 75 BUN/Creatinine Ratio 11.5 Glucose 137 H Calcium 11.4 H Total Bilirubin 0.30 AST 18 ALT 20 Alkaline Phosphatase 140 H Total Protein 7.4 Albumin 2.9 L Globulin 4.5 H Albumin/Globulin Ratio 0.6 L EKG Initial EKG: Comments: Sinus rhythm with a rate of 86. Normal [place] and QTc intervals. No ischemic changes. Interpreted by emergency doctor Discharge Plan Triage Chief Complaint: Hypertension ED Provider: Joseph Lockwood Dx/Rx/DC Orders Clinical Impression: Hypertension, Hx of hyperlipidemia Instructions: Blood Pressure Check Steps Prescriptions: No Action gabapentin 300 mg capsule 100 mg PO QHS Januvia 50 mg tablet 50 mg PO DAILY Jardiance 10 mg tablet 10 mg PO DAILY azelastine 137 mcg (0.1 %) aerosol,spray 1 spray intranasal BID Rx Instructions: administer into each nostril cod liver oil Capsule 1 cap PO DAILY Daliresp 250 mcg tablet 500 mcg PO DAILY psyllium husk [Daily Fiber] 0.4 gram capsule 0.4 g PO DAILY multivitamin Tablet 1 tab PO DAILY pravastatin 20 mg tablet 20 mg PO DAILY potassium chloride [Klor-Con M20] 20 mEq tablet,ER particles/crystals 40 meq PO BID budesonide-formoterol [Symbicort] 160-4.5 mcg/actuation HFA aerosol inhaler 2 puff inhalation BID cholecalciferol (vitamin D3) 1,250 mcg (50,000 unit) capsule 1,250 mcg PO QWEEK lisinopril 40 MG tablet 40 mg PO BID Label Comments: bp aspirin 81 MG tablet,chewable 81 mg PO DAILY@0800 Label Comments: heart health metoprolol tartrate 25 MG tablet 25 mg PO BID magnesium oxide 400 MG tablet 400 mg PO BID diltiazem HCl 180 MG tablet extended release 24 hr 180 mg PO DAILY albuterol sulfate 1 INHALER inhaler 2 puff INHALATION Q4H PRN PRN (Reason: Sob &/Or Wheezing) Trulicity 0.75 mg/0.5 mL Pen Injector 0.75 mg SUBCUT QWEEK cholecalciferol (vitamin D3) [Vitamin D3] 25 mcg (1,000 unit) Capsule 25 mcg PO DAILY polyethylene glycol 3350 17 GM packet 0.5 ea PO BID Rx Instructions: 1/4-1/2 capful before each meal pantoprazole 40 MG tablet 40 mg PO QHS insulin detemir U-100 100 UNITS/ML insulin pen 56 units SC BIDCM Label Comments: diabetic medication Rx Instructions: . insulin aspart U-100 100 UNIT/ML solution 22 unit SQ BIDCM vitamin B-ghnntithhblo-mihkebm 500 MG tablet,chewable 250 mg PO DAILY Primary Care Provider: Ramone Smiley Referrals: Ramone Smiley MD [Primary Care Provider] - 3-5 Days Disposition Disposition: Home, Self Care What to do if you have Problems For any increased pain, shortness of breath, bleeding, nausea or vomiting, chestpain, or any unexpected problems, contact your Primary Care Provider. Call [facility] ([phone]) or report to the closest Emergency Room. Call 911 if necessary. 01/28/23 1630 <Electronically signed by Joseph Lockwood MD> Cosigner Signature (if applicable): CC: Dr. Ramone Smiley MD ~ Signed [facility] Work Phone: [phone]) 393-636909-07-2022 NoteHNO ID: [id number] Author: 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 APRN.VOLTMETER OPERATOR Service: ? Author Type: Nurse Practitioner [...] an every 2-week basis for 4 cycles (CALGB-59574). Completed a year of trastuzumab 06/16/06. Referred back or anemia. Admitted to [facility] 12/02/2019 for chest pain with ambulation. [...] sucrose March 2021. No new concerns today. Appetite:Too good. Energy level:Good. Denies fevers or recent illness. Resp:denies cough [...] (97.2 ?F) (Temporal) Ht 158.1 cm (5' 2.25) Wt 73.7 kg (162 lb 8 oz) [...] 1.00 - 4.00 k/uL 2.70 2.30 2.03 Bacon% % 7.0 6.6 6.9 Abs Bacon <0.87 k/uL 0.49 0.47 0.47 Eosin% % [...] loss - ICD9: 280.0, (more content not included)...[facility]09-07-2022 History of Present illness Narrative* 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, ADVERTISING REP.VOLTMETER OPERATOR - 05/07/2022 1:33 PM EDT Chief Complaint Patient presents with: Established Patient [...] an every 2-week basis for 4 cycles ([id number]). Completed a year of trastuzumab 06/16/06. Referred back or anemia. Admitted to [facility] 12/02/2019 for chest pain with ambulation. [...] with a hot snare. The retrieval and resectionwere complete. Pathology: MICROSCOPIC DIAGNOSIS A. Antral lesion, biopsy: A fragment of gastric mucosa with extensive congestion and reactive fibrosis. See comment. B. Cecal polyp, biopsy: Tubular adenoma. COMMENT Immunohistochemistry for Helicobacter pylori can be performed if clinically indicated. Please notify the Laboratory if it is needed. Pt. received iron sucrose March 2021. No new concerns today. Appetite:Too good. Energy level:Good. Denies fevers or recent illness. Resp:denies cough [...] (97.2 F) (Temporal) Ht 158.1 cm (5' 2.25) Wt 73.7 kg (162 lb 8 oz) BMI 29.48 kg/m APPEARANCE Well appearing, alert, in no acute distress, well-hydrated, well nourished. HEART RRR with normal S1 and S2, no murmurs LUNG clear to auscultation LYMPH NODES No cervical lymphadenopathy, No supraclavicular lymphadenopathy, and No axillary lymphadenopathy. ABDOMEN bowel sounds normoactive, soft, non-tender, non-distended, without organomegaly or palpablemasses, no tenderness to palpation EXTREMITIES No edema [...] 1.00 - 4.00 k/uL 2.70 2.30 2.03 Bacon% % 7.0 6.6 6.9 Abs Bacon <0.87 k/uL 0.49 0.47 0.47 Eosin% % [...] as necessary for today's visit. 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 APRN.CNP documented in this [facility]Tr[facility]06-13-2022 Miscellaneous Notes* Telephone Encounter - Stacie Varner LPN - 02/10/2022 8:33 AM EDT Pt called and notified, pt voices understanding. Stacie Varner LPN * Telephone Encounter - Joseph Rolle DO - 02/10/2022 6:20 AM EDT Can let her know CBC and iron levels doing well. Follow up as scheduled. Joseph Rolle DO documented in this encounterTr[facility]01-31-2022 Miscellaneous Notes* Telephone Encounter - Jsoeph Rolle DO - 09/30/2021 12:13 PM EST Okay to wait until October. Joseph Rolle DO * Telephone Encounter - Jocelyn Abernathy - 09/30/2021 9:20 AM EST PT ALREADY SCHEDULED FOR LABS IN EARLY OCTOBER DOES THIS NEED PUSHED BACK A MONTH OR OKAY TO LEAVE IT? Jocelyn Abernathy * Telephone Encounter - Joseph Rolle DO - 09/29/2021 8:45 AM EST Can let her know I received lab results from Dr. Smiley's office from last fall. I'd like her to get3 month follow labs here to reassess her history of anemia and need for parenteral iron. Orders filed. Joseph Rolle DO documented in this encounterTr[facility]07-15-2021 Miscellaneous Notes* Telephone Encounter - Marina Mathis - 03/14/2021 1:12 PM EDT Faxed referral over. Marina Mathis * Telephone Encounter - Joseph Rolle DO - 03/14/2021 12:31 PM EDT She seems to have focal GI bleeding. Therefore I would recommend repeat colonoscopy. I do not thinkinsurance would deny at this time based on her clinical course and ongoing iron deficiency. She is on aspirin as well. Please make a referral to Dr. Michael Carmen for the colonoscopy. Joseph Rolle DO * Telephone Encounter - Marina Mathis - 03/14/2021 10:07 AM EDT Scheduled. Marina Mathis * Telephone Encounter - Christi Hopkins LPN - 03/14/2021 9:55 AM EDT Patient has not had another colonoscopy since 2015, insurance would not approve. Patient is aware of all information. PSR's- please schedule a lab appointment for 03/21/2021 @ 2:30, no need to notify pt. Patient does not drive and will complete lab work and filler picker stool cards 03/21/2021, same day as iron infusion. She will also schedule 5 more doses of iron then. Christi Hopkins LPN * Telephone Encounter - Joseph Rolle DO - 03/14/2021 6:07 AM EDT Can let her know her iron levels [...] have had one more recently at [facility]). Add on for 5 more doses of iron sucrose and repeat CBC/Iron studies about a month after completing. Joseph Rolle DO documented in this encounterClermont County Hospitallt note Author Eboni Chan [facility] December 30, 2023 2:23pm Note Date/Time December 30, 2023 2:24pm [facility] Medical Records Department [address] [place] [address] Counseling Note - Pharmacy 12/30/23 1423 MR#: [id number] Acct: [id number] Name: OLGA DONALDSON Rep #:[id number] : 1945 78 From: Eboni Chan PCP: Dr. Ramone Smiley MD Status:ADM IN Location: [place] [address] Pharmacy [place] Med Reconciliation Pharmacy Service has performed discharge medication reconciliation for this patient. The patient's discharge medication list was reviewed for discrepancies and discrepancies were resolved. Medications at Discharge Home Medications aspirin 81 mg chewable tablet 81 mg PO DAILY [facility] 01/21/16 albuterol sulfate 90 mcg/actuation aerosol inhaler 2 puff inhalation Q4H PRN Sob&/Or Wheezing 08/16/18 diltiazem HCl 180 mg tablet,extended release 24 hr 180 mg PO DAILY BLOOD PRESSURE 08/16/18 magnesium oxide 400 mg (241.3 mg magnesium) tablet 400 mg PO BID SUPPLEMENT 08/16/18 metoprolol tartrate 25 mg tablet 25 mg PO BID BLOOD PRESSURE 08/16/18 pantoprazole 40 mg tablet,delayed release 40 mg PO QHS ACID REFLUX 12/02/19 empagliflozin 10 mg tablet (Jardiance) 10 mg PO DAILY DIABETES 10/18/20 sitagliptin phosphate 50 mg tablet (Januvia) 50 mg PO DAILY DIABETES 10/18/20 budesonide-formoterol HFA 160 mcg-4.5 mcg/actuation aerosol inhaler (Symbicort) 2 puff inhalation BID 12/06/21 multivitamin 1 tab PO DAILY 12/06/21 pravastatin 20 mg tablet 20 mg PO DAILY CHOLESTEROL 12/06/21 ascorbic acid (vitamin C) 250 mg tablet (Vitamin C) 250 mg PO DAILY SUPPLEMENT 08/13/23 azelastine 137 mcg (0.1 %) nasal spray aerosol 137 mcg intranasal BID RUNNY NOSE08/13/23 cod liver oil 1 cap PO DAILY SUPPLEMENT 08/13/23 dulaglutide 0.75 mg/0.5 mL subcutaneous pen injector (Trulicity) 0.75 mg subcut MO DIABETES 08/13/23 gabapentin 100 mg capsule 100 mg PO QHS NERVE PAIN 08/13/23 roflumilast 500 mcg tablet 500 mcg PO DAILY COPD 08/13/23 acetaminophen 500 mg tablet 1,000 mg (2 x 500 mg) PO Q8 #0 tabs 12/30/23 apixaban 2.5 mg tablet (Eliquis) 2.5 mg PO BID 30 days #60 tabs 12/30/23 bisacodyl 10 mg rectal suppository 10 mg [place] DAILY #0 ea 12/30/23 insulin glargine-yfgn 100 unit/mL (3 mL) subcutaneous pen 15 unit (0.15 mL) subcut BID #0 mL 12/30/23 insulin lispro 100 unit/mL subcutaneous pen (Humalog KwikPen (U-100) Insulin) 8 unit (0.08 mL) subcut TIDAC #0 mL 12/30/23 insulin lispro 100 unit/mL subcutaneous pen (Humalog KwikPen (U-100) Insulin) See Protocol subcut ACHS #0 mL 12/30/23 oxycodone 5 mg tablet 2.5 mg (1/2 x 5 mg) PO Q4H PRN PRN Pain Score 4-10 3 days #0 tabs 12/30/23 polyethylene glycol 3350 17 gram/dose oral powder (Miralax) 17 g PO DAILY #238 grams 12/30/23 sennosides 8.6 mg-docusate sodium 50 mg tablet (Stool Softener-Stimulant Laxative) 2 tab PO BID #0 tabs 12/30/23 12/30/23 [id number] <Electronically signed by Eboni Chan> Date _ Eboni Chan Cosigner Signature (if applicable): Date CC: ~ Signed [facility] Work Phone: Consult note Author Eboni Chan [facility] Note Date/Time January 24, 2025 2:52p m [facility] Medical Records Department [address] [place] [address] Counseling Note - Pharmacy 01/24/25 1455 MR#: [id number] Acct: [id number] Name: OLGA DONALDSON Rep #:[id number] : 1945 80 From: Eboni Chan PCP: Dr. Ramone Smiley MD Status:[facility]M [facility] Counseling Pharmacy Service has performed discharge medication reconciliation and counseling for this patient. 1. ENTRESTO 24/26MG PO BID 2. LEVOFLOXACIN 750MG PO QODAY (01/25 AND 01/27) X 2 DOSES 3. PREDNISONE 40MG PO BREAKFAST X 5 DAYS 4. LASIX CHANGED TO BID AND POTASSIUM CHANGED TO DAILY The patient's discharge medication list was reviewed for discrepancies and discrepancies were resolved. The patient was counseled on the following discharge medications and changes in medications for homegoing were reviewed. The Reason for Use, instructions for use, and potential side effects were reviewed for all new medications. The patient's questions regarding all of their medications were answered. The patient was able to verbally demonstrate an understanding of their dischargemedications. Medications at Discharge Home Medications aspirin 81 mg chewable tablet 81 mg PO DAILY [facility] 01/21/16 magnesium oxide 400 mg (241.3 mg magnesium) tablet 400 mg PO BID SUPPLEMENT 08/16/18 metoprolol tartrate 25 mg tablet 25 mg PO BID BLOOD PRESSURE 08/16/18 pantoprazole 40 mg tablet,delayed release 40 mg PO DAILY ACID REFLUX 12/02/19 empagliflozin 10 mg tablet (Jardiance) 10 mg PO DAILY DIABETES 10/18/20 sitagliptin phosphate 50 mg tablet (Januvia) 50 mg PO DAILY DIABETES 10/18/20 multivitamin 1 tab PO DAILY VITAMIN 12/06/21 pravastatin 20 mg tablet 20 mg PO DAILY CHOLESTEROL 04/08/22 ascorbic acid (vitamin C) 250 mg tablet (Vitamin C) 250 mg PO DAILY SUPPLEMENT 08/13/23 gabapentin 100 mg capsule 100 mg PO QHS NERVE PAIN 08/13/23 roflumilast 500 mcg tablet 500 mcg PO DAILY COPD 08/13/23 insulin lispro 100 unit/mL subcutaneous pen (Humalog KwikPen (U-100) Insulin) 10unit subcut TIDAC short acting insulin 12/30/23 budesonide 160 mcg-glycopyr 9 mcg-formot 4.8 mcg/actuation HFA inhaler (Breztri Aerosphere) 2 inh inhalation BID 01/07/25 diltiazem HCl 180 mg capsule,extended release 24 hr, controlled 180 mg PO DAILY 01/07/25 insulin glargine 100 unit/mL (3 mL) subcutaneous pen (Lantus Solostar U-100 Insulin) 20 unit subcut BID 01/07/25 ipratropium bromide 21 mcg (0.03 %) nasal spray 1 - 2 spray intranasal Q6H PRN allergy symptoms 01/07/25 lancets 28 gauge (TRUEplus Lancets) 01/07/25 acetaminophen 500 mg tablet 1,000 mg PO Q6H PRN Pain Score 1-3 01/15/25 azelastine 137 mcg (0.1 %) nasal spray 1 - 2 spray intranasal BID 01/15/25 mecobalamin (vitamin B12) 1,000 mcg chewable tablet (B12 Active) 1,000 mcg PO DAILY 01/15/25 menthol 0.44 %-zinc oxide 20.6 % topical ointment (CalaSoothe) 1 applic topical 4X/DAY PRN skin irritation 01/15/25 netarsudil 0.02 %-latanoprost 0.005 % eye drops (Farinalatan) 1 drp EACH EYE DAILY01/15/25 psyllium husk 0.4 gram capsule (Daily Fiber) 0.4 g PO DAILY 01/15/25 tirzepatide 5 mg/0.5 mL subcutaneous pen injector (Mounjaro) 5 mg subcut QWEEK 01/15/25 furosemide 40 mg tablet 40 mg PO BIDLX #60 tabs 01/24/25 levofloxacin 750 mg tablet 750 mg PO QODAY@2200 #2 tabs 01/24/25 potassium chloride 20 mEq tablet,extended release (K-Tab) 20 meq PO DAILY #30 tabs 01/24/25 prednisone 20 mg tablet 40 mg (2 x 20 mg) PO BREAKFAST 5 days #10 tabs 01/24/25 sacubitril 24 mg-valsartan 26 mg tablet (Entresto) 1 tab PO BID #60 tabs 01/24/25 01/24/25 1452 <Electronically signed by Eboni Chan> Date _ Eboni Chan Cosigner Signature (if applicable): Date CC: ~ Signed [facility] Work Phone: Discharge summary Author Sunny Bell [facility] December 30, 2023 2:14pm Note Date/Time December 30, 2023 2:05pm [facility] Medical Records Department [address] [place], [place] [id number] Transfer to [facility] MR#: [id number] Acct: [id number] Name: OLGA DONALDSON Rep #:[id number] : 1945 78 From: Sunny Blue PCP: Dr. Ramone Smiley MD Status:ADM IN Certification of patient admission REQUIRED AT TIME OF ADMISSION. I CERTIFY THAT POST-HOSPITAL F SERVICES ARE REQUIRED TO BE GIVEN ON AN IN-PATIENT BASIS BECAUSE OF THE ABOVE NAMED PATIENT'S NEED FOR SHELTER CARE ON A CONTINUING BASIS FOR THE CONDITION(S) FOR WHICH HE/SHE WAS RECEIVING IN-PATIENT HOSPITAL SERVICES PRIOR TO HIS/HER TRANSFER TO THE [facility]. 12/30/23 1414<Electronically signed by Sunny Bell MD> Diet Diet Order/Speech Therapy: 12/28/23 17:34 Carb [Diet: Carbohydrate Controlled] Type of Dietary Supplement:: Ensure Surgery Is pt able to select menu?: Yes Routine Orders/Code Status Suppository Type: Dulcolax 10mg Suppository Frequency: Daily PRN Code Status: Full Code Wound(s) R buttock: Wound Type: Pressure Injury left hip: Wound Type: Surgical Incision Therapies Weight Bearing: Weight bearing as tolerated Extremity Affected:: Bilateral Lower Physical Therapy: Eval and Treat Occupational Therapy: Eval and Treat Speech Therapy: Eval and Treat Problem/Diagnosis (1) Fracture of hip, left, closed: Status: Acute Code(s): S72.002A - Fracture of unspecified part of neck of left femur, initial encounterfor closed fracture (2) Weakness: Status: Acute Code(s): R53.1 - Weakness (3) Hypercalcemia: Status: Chronic Code(s): E83.52 - Hypercalcemia Plan Patient is a 78-year-old female who presented [facility] ED on 12/27/2023 with left hip pain after a fall at home. She got up from the couch toself catheter, got her walker turned and then lost balance and fell on her left hip. 1. Acute debility due to left impacted transcervical femoral neck fracture. ? Admit under inpatient status to [facility]. Orthopedics consulted. N.p.o. at midnight. PT/OT/case management consulted. Pain control with scheduled Tylenol, p.o. oxycodone as needed and IV Dilaudid as needed. 12/29: Waiting for pre-CERT. 2. Preoperative evaluation ? NSQIP score: Patient has average risk of serious complication, below average risk of any complication given her with factors of age, partially dependent functional status, mild systemic disease, insulin-dependent diabetes and hypertension. ? Labs/imaging: Chest x-ray on admit nonacute. No further imaging or lab workupneeded prior to procedure. ? EKG/echo: EKG in ED showed normal sinus rhythm, no ST changes. Appeared similar to last EKG from July. Last echo in 2020 showed normal EF with moderate aortic stenosis. Patient is hemodynamically stable here at rest, denies any chest pain or shortness of breath with exertion recently. No need for repeat echo prior to procedure. ? Medications: Okay to continue home beta-jefe and aspirin on day of procedure. Holding home diltiazem as noted below. Giving reduced dose of long-acting insulin on day of procedure given n.p.o. status. ? Recommendation: Patient is medically optimized for procedure. 12/27: Monitor postop CBC and BMP. Patient denies history of previous joint replacement. Continue incentive spirometry. 12/28: Patient had left anterior hemiarthroplasty. I talked to the patient's cousin over the phone who lives in [facility]. Patient is clinically doing well. Currently has Serna catheter 12/29: Dulcolax suppository ordered. Patient with small bowel movement. On sennaS and MiraLAX. 3. Mild creatinine elevation ? Creatinine 1.19 on admit, baseline creatinine around 0.8-1.0. Suspect due to mild dehydration as other labs appear somewhat hemoconcentrated. Will give 750 cc of IV fluids over 5 hours prior to procedure. Follow-up a.m. BMP and urine output. 12/27: Repeat creatinine 1.14. Improvement in creatinine. Continue IV fluid while NPO. 12/29: Last creatinine 1.08. LIA ruled out. 4. Type 2 diabetes mellitus with hyperglycemia ? Current home regimen of insulin detemir 20 units twice daily, Humalog 5 units with meals, Januvia 50 mg daily, Jardiance 10 mg daily, Trulicity weekly. Most recent A1c 8.2% on 10/24. On chart review, patient was hospitalized in July 2023. Was noted then that she had history of poorly controlled diabetes with very high insulin requirements. 12/27: Lantus 15 units twice daily and Humalog sliding scale insulin with meals while inpatient, adjust as needed. Repeat A1c 9.4%. 12/28: Glucose are high. Lantus insulin increased to 20 twice daily and Humalog scheduled 12 units 3 times daily with meals with holding parameters. 01/09: Glucose is better. 127 in BMP. 87 in noontime therefore Lantus insulin and Humalog insulin decreased. No hypoglycemia. 5. Hypercalcemia ? Calcium 11.2 on admit. Known history of mild hypercalcemia, was 10-11 during previous hospitalization in July. PTH was 153 at that time concerning for primary hyperparathyroidism. Plan was for outpatient follow-up for further workup but does not appear this was done. If remains high, would continue to have concern for primary hyperparathyroidism and this could be contributing to calcium withdrawal from bones leading to possible osteopenia versus osteoporosis. recommend close outpatient follow-up with endocrinology. 12/27: PTH 217. Calcium 11.2. Continue IV fluid. 6. COPD ? Not on home O2. Breathing comfortably on room air on arrival here with good saturations, no wheezing noted, no concern for acute exacerbation. Continue home inhalers and roflumilast. 12/27 denies any recent admission for COPD exacerbation 7. Chronic urinary retention with self-catheterization ? UA on admit noninfectious appearing. Given current immobility and plan for procedure, Serna catheter placed in the ED. Recommend voiding trial prior to discharge. 8. Chronic anemia ? Hemoglobin 12.4 on admit, recent baseline around 9-. Suspect somewhat hemoconcentrated as noted above. 12/27: H&H 11.4/36.5%. 9. Hypertension ? Home regimen listed as Lopressor 25 mg twice daily and diltiazem 180 mg daily. Heart rate in the 80s in the ED, normal sinus rhythm. Unclear why patient is on both a beta-jefe and nondihydropyridine calcium channel jefe. BP elevated to the 150s to 170s on admit but suspect this is in part due to pain. Will continue Lopressor and hold diltiazem for now. 12/28: Blood pressure high systolic 172. Diltiazem resumed.On metoprolol 25 mg twice daily. Hydralazine 10 mg every 4 hourly as needed for SBP more than 180 mmHg 10. GERD ? Stable. Continue home PPI. DVT prophylaxis: Lovenox CODE STATUS: Full code, verified Expected disposition: TBD Allergies/Procedures Done in Hospital Allergies adhesive tape [tape] Allergy (Verified 12/27/23 22:08) NEEDS FOLLOW-UP CLOTH TAPE amoxicillin Allergy (Verified 12/27/23 22:08) YEAST INFECTION cephalexin monohydrate [From Keflex] Allergy (Verified 12/27/23 22:08) Rash clopidogrel bisulfate [From Plavix] Allergy (Verified 12/27/23 22:08) Other Type of Care/Length of Stay Estimated LOS: Convalescent Care Less Than 30 days Type of Care Needed: Skilled Rehab Potential: Good Prognosis: Good Additional Orders/Day of Discharge Day of Discharge: 12/30/23 Discharge Plan Admission Admit Date/Time: 12/27/23 23:32 Primary Reason for Your Visit: Left hip transcervical fracture Attending Provider: Sunny Bell Primary Care Provider: Ramone Smiley Consulting Providers: Gabriel Byrd; Nestor Bartlett Discharge Orders/Prescriptions Prescriptions: New sennosides-docusate sodium [Stool Softener-Stimulant Laxat] 8.6-50 mg Tablet 2 tab PO BID Qty: 0 0RF Rx Instructions: Hold if more than 1 bowel movement per day oxycodone 5 mg Tablet 2.5 mg PO Q4H PRN PRN (Reason: Pain Score 4-10) 3 Days Qty: 0 0RF Rx Instructions: Oxycodone 2.5 mg for moderate pain and 5 mg for severe pain respectively. insulin lispro [Humalog KwikPen Insulin] 100 unit/mL Insulin Pen See Protocol subcut ACHS Qty: 0 0RF Protocol: 4. Sliding Scale Insulin High-Med Dosing Condition: 150-199 mg/dl = 2 units Condition: 200-259 mg/dl = 4 units Condition: 260-324 mg/dl = 6 units Condition: 325-374 mg/dl = 8 units Condition: 375-409 mg/dl = 10 units Condition: 410-449 mg/dl = 11 units Condition: Greater than 449 call physician Protocol Text: - Use for Total Daily Dose of Insulin 56-80 units - Patient who are insulin resistant or septic HIGH MEDIUM DOSING ALGORITHM insulin lispro [Humalog KwikPen Insulin] 100 unit/mL Insulin Pen 8 unit subcut TIDAC Qty: 0 0RF Rx Instructions: Hold if glucose less than 130 mg/dl acetaminophen 500 mg Tablet 1,000 mg PO Q8 Qty: 0 0RF bisacodyl 10 mg Suppository 10 mg [place] DAILY Qty: 0 0RF insulin glargine-yfgn 100 unit/mL (3 mL) Insulin Pen 15 unit subcut BID Qty: 0 0RF Rx Instructions: Hold if glucose less than 130 mg/dl Eliquis 2.5 mg tablet 2.5 mg PO BID 30 Days Qty: 60 0RF Rx Instructions: Post hip replacement DVT prophylaxis polyethylene glycol 3350 [Miralax] 17 gram/dose powder 17 g PO DAILY Qty: 238 0RF Continued Januvia 50 mg tablet 50 mg PO DAILY Jardiance 10 mg tablet 10 mg PO DAILY multivitamin Tablet 1 tab PO DAILY pravastatin 20 mg tablet 20 mg PO DAILY budesonide-formoterol [Symbicort] 160-4.5 mcg/actuation HFA aerosol inhaler 2 puff inhalation BID metoprolol tartrate 25 MG tablet 25 mg PO BID magnesium oxide 400 MG tablet 400 mg PO BID diltiazem HCl 180 MG tablet extended release 24 hr 180 mg PO DAILY albuterol sulfate 1 INHALER inhaler 2 puff INHALATION Q4H PRN (Reason: Sob &/Or Wheezing) pantoprazole 40 MG tablet 40 mg PO QHS gabapentin 100 mg capsule 100 mg PO QHS roflumilast 500 mcg tablet 500 mcg PO DAILY Trulicity 0.75 mg/0.5 mL pen injector 0.75 mg subcut MO Hold Instructions: MD Ordered cod liver oil Capsule 1 cap PO DAILY ascorbic acid (vitamin C) [Vitamin C] 250 mg tablet 250 mg PO DAILY azelastine 137 mcg (0.1 %) aerosol,spray 137 mcg intranasal BID Held aspirin 81 MG tablet,chewable 81 mg PO DAILY Hold Instructions: Hold while patient is on Eliquis. Discontinued fiber Capsule 1 cap PO DAILY insulin aspart U-100 100 UNIT/ML solution 5 unit subcut BIDCM Qty: 10 0RF insulin detemir U-100 100 UNITS/ML insulin pen 20 unit SC BIDCM Qty: 15 0RF Rx Instructions: . Referrals / Follow Up: Ramone Smiley MD [Primary Care Provider] - Gabriel Byrd MD [Med Staff - Active Staff] - Within 2 Weeks Disposition Disposition (needs filled in before D/C Order can be placed): [facility] 12/30/231413 <Electronically signed by Sunny Bell MD> Cosigner Signature (if applicable): CC: Dr. Nestor Bartlett DO; Dr. Ramone Smiley MD; Dr. Gabriel Byrd MD ~ [facility] Work Phone: Discharge summary Author Sunny Bell [facility] December 30, 2023 2:26pm Note Date/Time December 30, 2023 2:21pm [facility] Medical Records Department [address] [place] [address] Discharge Summary 12/30/231413 MR#: [id number] Acct: [id number] Name: OLGA DONALDSON Rep #:[id number] : 1945 78 From: Sunny Blue PCP: Dr. Ramone Smiley MD Status:ADM IN [facility] Prov[facility] Date of Admission: 12/27/23 Date of Discharge: 12/30/23 Primary Care Physician: Dr. Ramone Smiley MD Consultations 12/28/23 00:19 Consult: Orthopedics Routine Consulting Provider: Gabriel Byrd Reason for Consult: left hip fracture EMERGENT Consult: No MD Notified: Yes Date Notified: 12/27/23 Time Notified: 23:36 Method of Notification: ED Physician Initiated Reason For Visit: LEFT HIP FRACTURE Diagnosis Discharge Diagnosis (1) Fracture of hip, left, closed: Status: Acute Code(s): S72.002A - Fracture of unspecified part of neck of left femur, initial encounterfor closed fracture (2) Weakness: Status: Acute Code(s): R53.1 - Weakness (3) Hypercalcemia: Status: Chronic Code(s): E83.52 - Hypercalcemia Plan Patient is a 78-year-old female who presented [facility] ED on 12/27/2023 with left hip pain after a fall at home. She got up from the couch toself catheter, got her walker turned and then lost balance and fell on her left hip. 1. Acute debility due to left impacted transcervical femoral neck fracture. ? Admit under inpatient status to [facility]. Orthopedics consulted. N.p.o. at midnight. PT/OT/case management consulted. Pain control with scheduled Tylenol, p.o. oxycodone as needed and IV Dilaudid as needed. 12/29: Waiting for pre-CERT. 2. Preoperative evaluation ? NSQIP score: Patient has average risk of serious complication, below average risk of any complication given her with factors of age, partially dependent functional status, mild systemic disease, insulin-dependent diabetes and hypertension. ? Labs/imaging: Chest x-ray on admit nonacute. No further imaging or lab workupneeded prior to procedure. ? EKG/echo: EKG in ED showed normal sinus rhythm, no ST changes. Appeared similar to last EKG from July. Last echo in 2020 showed normal EF with moderate aortic stenosis. Patient is hemodynamically stable here at rest, denies any chest pain or shortness of breath with exertion recently. No need for repeat echo prior to procedure. ? Medications: Okay to continue home beta-jefe and aspirin on day of procedure. Holding home diltiazem as noted below. Giving reduced dose of long-acting insulin on day of procedure given n.p.o. status. ? Recommendation: Patient is medically optimized for procedure. 12/27: Monitor postop CBC and BMP. Patient denies history of previous joint replacement. Continue incentive spirometry. 12/28: Patient had left anterior hemiarthroplasty. I talked to the patient's cousin over the phone who lives in [facility]. Patient is clinically doing well. Currently has Serna catheter 12/29: Patient got in afternoon. Patient is being discharged to TCU. Dulcolax suppository ordered. Patient with small bowel movement. On senna S and MiraLAX. Discharged on Eliquis 2.5 mg twice daily for 1 month for DVT prophylaxis. Hold baby aspirin while patient is on Eliquis. 3. Mild creatinine elevation ? Creatinine 1.19 on admit, baseline creatinine around 0.8-1.0. Suspect due to mild dehydration as other labs appear somewhat hemoconcentrated. Will give 750 cc of IV fluids over 5 hours prior to procedure. Follow-up a.m. BMP and urine output. 12/27: Repeat creatinine 1.14. Improvement in creatinine. Continue IV fluid while NPO. 12/29: Last creatinine 1.08. LIA ruled out. 4. Type 2 diabetes mellitus with hyperglycemia ? Current home regimen of insulin detemir 20 units twice daily, Humalog 5 units with meals, Januvia 50 mg daily, Jardiance 10 mg daily, Trulicity weekly. Most recent A1c 8.2% on 10/24. On chart review, patient was hospitalized in July 2023. Was noted then that she had history of poorly controlled diabetes with very high insulin requirements. 12/27: Lantus 15 units twice daily and Humalog sliding scale insulin with meals while inpatient, adjust as needed. Repeat A1c 9.4%. 12/28: Glucose are high. Lantus insulin increased to 20 twice daily and Humalog scheduled 12 units 3 times daily with meals with holding parameters. 01/09: Glucose is better. 127 in BMP. 87 in noontime therefore Lantus insulin and Humalog insulin decreased. No hypoglycemia. Discharged on Humalog insulin and Lantus insulin with holding parameters. Continue Accu-Chek before meals andat bedtime insulin coverage Humalog sliding scale. 5. Hypercalcemia ? Calcium 11.2 on admit. Known history of mild hypercalcemia, was 10-11 during previous hospitalization in July. PTH was 153 at that time concerning for primary hyperparathyroidism. Plan was for outpatient follow-up for further workup but does not appear this was done. If remains high, would continue to have concern for primary hyperparathyroidism and this could be contributing to calcium withdrawal from bones leading to possible osteopenia versus osteoporosis. recommend close outpatient follow-up with endocrinology. 12/27: PTH 217. Calcium 11.2. Continue IV fluid. 6. COPD ? Not on home O2. Breathing comfortably on room air on arrival here with good saturations, no wheezing noted, no concern for acute exacerbation. Continue home inhalers and roflumilast. 12/27 denies any recent admission for COPD exacerbation 7. Chronic urinary retention with self-catheterization ? UA on admit noninfectious appearing. Given current immobility and plan for procedure, Serna catheter placed in the ED. Recommend voiding trial prior to discharge. 8. Chronic anemia ? Hemoglobin 12.4 on admit, recent baseline around 9-11. Suspect somewhat hemoconcentrated as noted above. 12/27: H&H 11.4/36.5%. 9. Hypertension ? Home regimen listed as Lopressor 25 mg twice daily and diltiazem 180 mg daily. Heart rate in the 80s in the ED, normal sinus rhythm. Unclear why patient is on both a beta-jefe and nondihydropyridine calcium channel jefe. BP elevated to the 150s to 170s on admit but suspect this is in part due to pain. Will continue Lopressor and hold diltiazem for now. 12/28: Blood pressure high systolic 172. Diltiazem resumed.On metoprolol 25 mg twice daily. Hydralazine 10 mg every 4 hourly as needed for SBP more than 180 mmHg 12/29: Blood pressure is controlled 120/50. It fluctuates. 10. GERD ? Stable. Continue home PPI. DVT prophylaxis: Lovenox CODE STATUS: Full code, verified Discharge medication reconciliation done. Discharge follow-up instructions completed. Discharge process discussed with the patient and all questions wereanswered to patient's satisfaction. Follow with PCP in 1 to 2 weeks Total time spent, exact 35 minutes on discharge meds reconciliation, examination, coordination of care with nurses and ancillary staff, review of imaging and blood test and discussion with the patient on follow-up instructions. Medications at Discharge Home Medications aspirin 81 mg chewable tablet 81 mg PO DAILY [facility] 01/21/16 albuterol sulfate 90 mcg/actuation aerosol inhaler 2 puff inhalation Q4H PRN Sob&/Or Wheezing 08/16/18 diltiazem HCl 180 mg tablet,extended release 24 hr 180 mg PO DAILY BLOOD PRESSURE 08/16/18 magnesium oxide 400 mg (241.3 mg magnesium) tablet 400 mg PO BID SUPPLEMENT 08/16/18 metoprolol tartrate 25 mg tablet 25 mg PO BID BLOOD PRESSURE 08/16/18 pantoprazole 40 mg tablet,delayed release 40 mg PO QHS ACID REFLUX 12/02/19 empagliflozin 10 mg tablet (Jardiance) 10 mg PO DAILY DIABETES 10/18/20 sitagliptin phosphate 50 mg tablet (Januvia) 50 mg PO DAILY DIABETES 10/18/20 budesonide-formoterol HFA 160 mcg-4.5 mcg/actuation aerosol inhaler (Symbicort) 2 puff inhalation BID 12/06/21 multivitamin 1 tab PO DAILY 12/06/21 pravastatin 20 mg tablet 20 mg PO DAILY CHOLESTEROL 12/06/21 ascorbic acid (vitamin C) 250 mg tablet (Vitamin C) 250 mg PO DAILY SUPPLEMENT 08/13/23 azelastine 137 mcg (0.1 %) nasal spray aerosol 137 mcg intranasal BID RUNNY NOSE08/13/23 cod liver oil 1 cap PO DAILY SUPPLEMENT 08/13/23 dulaglutide 0.75 mg/0.5 mL subcutaneous pen injector (Trulicity) 0.75 mg subcut MO DIABETES 08/13/23 gabapentin 100 mg capsule 100 mg PO QHS NERVE PAIN 08/13/23 roflumilast 500 mcg tablet 500 mcg PO DAILY COPD 08/13/23 acetaminophen 500 mg tablet 1,000 mg (2 x 500 mg) PO Q8 #0 tabs 12/30/23 apixaban 2.5 mg tablet (Eliquis) 2.5 mg PO BID 30 days #60 tabs 12/30/23 bisacodyl 10 mg rectal suppository 10 mg [place] DAILY #0 ea 12/30/23 insulin glargine-yfgn 100 unit/mL (3 mL) subcutaneous pen 15 unit (0.15 mL) subcut BID #0 mL 12/30/23 insulin lispro 100 unit/mL subcutaneous pen (Humalog KwikPen (U-100) Insulin) 8 unit (0.08 mL) subcut TIDAC #0 mL 12/30/23 insulin lispro 100 unit/mL subcutaneous pen (Humalog KwikPen (U-100) Insulin) See Protocol subcut ACHS #0 mL 12/30/23 oxycodone 5 mg tablet 2.5 mg (1/2 x 5 mg) PO Q4H PRN PRN Pain Score 4-10 3 days #0 tabs 12/30/23 polyethylene glycol 3350 17 gram/dose oral powder (Miralax) 17 g PO DAILY #238 grams 12/30/23 sennosides 8.6 mg-docusate sodium 50 mg tablet (Stool Softener-Stimulant Laxative) 2 tab PO BID #0 tabs 12/30/23 Weight / BMI Weight Weight: 157 lb 6.561 oz Body Mass Index (BMI) 27.8 ABG / Lab / Microbiology Data 12/30/23 06:02 12/30/23 06:02 Laboratory: Laboratory Results - last 24 hr 12/29/23 16:21: POC Glucose 198 H 12/29/23 21:03: POC Glucose 170 H 12/30/23 06:02: WBC 9.8, RBC 3.98 L, Hgb 10.7 L, Hct 33.8 L, MCV 84.9, MCH 26.9 L, MCHC 31.7 L, RDW Std Deviation 47.9 H, RDW Coeff of Vijay 15.5 H, Plt Count 191, MPV 11.3, Immature Gran % (Auto) 0.400, Neut % (Auto) 63.9, Lymph % (Auto) 25.3, Bacon % (Auto) 8.7, Eos % (Auto) 1.4, Baso % (Auto) 0.3, Absolute Neuts (auto) 6.3, Absolute Lymphs (auto) 2.48, Nucleated RBC % 0, Sodium 135 L, Potassium 4.4, Chloride 104, Carbon Dioxide 27.0, Anion Gap 4 L, BUN 23 H, Creatinine 1.08 H, Estim Creat Clear Calc 40.01, Est GFR (MDRD) Af Amer 63, Est GFR (MDRD) Non-Af 52 L, BUN/Creatinine Ratio 21.3 H, Glucose 127 H, Calcium 11.3H 12/30/23 08:06: POC Glucose 129 H 12/30/23 12:04: POC Glucose 78 Meaningful Use Info Meaningful Use Meaningful Use Diagnoses (Choose all that apply): None applicable Ischemic Stroke Statin Dosing Therapy Reference: STATIN DOSE THERAPY REFERENCE: * Patients > 75 years receive moderate or high dose statin therapy. * Patients 75 years or YOUNGER should receive HIGH intensity statin dose unless contraindicated. You will be required to document reason for non-treatment if statin daily dose does not meet guidelines. HIGH DOSE STATIN THERAPY DAILY Atorvastatin > than or = to 40 mg Rosuvastatin > than or = to 20 mg Amlodipine + Atorvastatin > than or = to 2.5/40 mg Ezetimibe + Simvastatin 10/80 mg Simvastatin 80mg Discharge Plan Admission Admit Date/Time: 12/27/23 23:32 Primary Reason for Your Visit: Left hip transcervical fracture Attending Provider: Sunny Bell Primary Care Provider: Ramone Smiley Consulting Providers: Gabriel Byrd; Nestor Bartlett Discharge Orders/Prescriptions Prescriptions: New sennosides-docusate sodium [Stool Softener-Stimulant Laxat] 8.6-50 mg Tablet 2 tab PO BID Qty: 0 0RF Rx Instructions: Hold if more than 1 bowel movement per day oxycodone 5 mg Tablet 2.5 mg PO Q4H PRN PRN (Reason: Pain Score 4-10) 3 Days Qty: 0 0RF Rx Instructions: Oxycodone 2.5 mg for moderate pain and 5 mg for severe pain respectively. insulin lispro [Humalog KwikPen Insulin] 100 unit/mL Insulin Pen See Protocol subcut ACHS Qty: 0 0RF Protocol: 4. Sliding Scale Insulin High-Med Dosing Condition: 150-199 mg/dl = 2 units Condition: 200-259 mg/dl = 4 units Condition: 260-324 mg/dl = 6 units Condition: 325-374 mg/dl = 8 units Condition: 375-409 mg/dl = 10 units Condition: 410-449 mg/dl = 11 units Condition: Greater than 449 call physician Protocol Text: - Use for Total Daily Dose of Insulin 56-80 units - Patient who are insulin resistant or septic HIGH MEDIUM DOSING ALGORITHM insulin lispro [Humalog KwikPen Insulin] 100 unit/mL Insulin Pen 8 unit subcut TIDAC Qty: 0 0RF Rx Instructions: Hold if glucose less than 130 mg/dl acetaminophen 500 mg Tablet 1,000 mg PO Q8 Qty: 0 0RF bisacodyl 10 mg Suppository 10 mg [place] DAILY Qty: 0 0RF insulin glargine-yfgn 100 unit/mL (3 mL) Insulin Pen 15 unit subcut BID Qty: 0 0RF Rx Instructions: Hold if glucose less than 130 mg/dl Eliquis 2.5 mg tablet 2.5 mg PO BID 30 Days Qty: 60 0RF Rx Instructions: Post hip replacement DVT prophylaxis polyethylene glycol 3350 [Miralax] 17 gram/dose powder 17 g PO DAILY Qty: 238 0RF Continued Januvia 50 mg tablet 50 mg PO DAILY Jardiance 10 mg tablet 10 mg PO DAILY multivitamin Tablet 1 tab PO DAILY pravastatin 20 mg tablet 20 mg PO DAILY budesonide-formoterol [Symbicort] 160-4.5 mcg/actuation HFA aerosol inhaler 2 puff inhalation BID metoprolol tartrate 25 MG tablet 25 mg PO BID magnesium oxide 400 MG tablet 400 mg PO BID diltiazem HCl 180 MG tablet extended release 24 hr 180 mg PO DAILY albuterol sulfate 1 INHALER inhaler 2 puff INHALATION Q4H PRN (Reason: Sob &/Or Wheezing) pantoprazole 40 MG tablet 40 mg PO QHS gabapentin 100 mg capsule 100 mg PO QHS roflumilast 500 mcg tablet 500 mcg PO DAILY Trulicity 0.75 mg/0.5 mL pen injector 0.75 mg subcut MO Hold Instructions: MD Ordered cod liver oil Capsule 1 cap PO DAILY ascorbic acid (vitamin C) [Vitamin C] 250 mg tablet 250 mg PO DAILY azelastine 137 mcg (0.1 %) aerosol,spray 137 mcg intranasal BID Held aspirin 81 MG tablet,chewable 81 mg PO DAILY Hold Instructions: Hold while patient is on Eliquis. Discontinued fiber Capsule 1 cap PO DAILY insulin aspart U-100 100 UNIT/ML solution 5 unit subcut BIDCM Qty: 10 0RF insulin detemir U-100 100 UNITS/ML insulin pen 20 unit SC BIDCM Qty: 15 0RF Rx Instructions: . Referrals / Follow Up: Ramone Smiley MD [Primary Care Provider] - Gabriel Byrd MD [Med Staff - Active Staff] - Within 2 Weeks Disposition Disposition (needs filled in before D/C Order can be placed): [facility] Facility Charges/Coding Visit Charges Inpatient E&M: 59312 Disch Hosp >30min 12/30/23 1426 <Electronically signed by Sunny Bell MD> Cosigner Signature (if applicable): CC: Dr. Ramone Smiley MD; Dr. Sunny Bell MD; Dr. Gabriel Byrd MD~ Signed [facility] Work Phone: Discharge summary Author Melba Hartmann [facility] Note Date/Time January 24, 2025 1:27p m [facility] Medical Records Department [address] [place] [address] Instructions for Home/Discharge Instructions 01/24/25 1326 MR#: [id number] Acct: [id number] Name: OLGA DONALDSON Rep #:[id number] : 1945 80 From: Melba Hartmann MD PCP: Dr. Ramone Smiley MD Status:ADM IN Discharge Instructions Diet Discharge Diet: Low fat / Low cholesterol DC O2, CPAP, BIPAP needs Home O2 Discharge instructions: No Dressing / Incision Discharge Activity: Return to Normal Activity Weight Bearing Status: Weight bearing as tolerated Dressing / Incision Call your doctor if you observe: Fever of 101 or Higher, Shortness of breath, Dizziness, Swelling in the ankles, Chest pain and Increased palpitations (irregular heartbeat) Follow Up Care Test Results: Test results from this visit will be discussed in further detail at your follow- up appointment, if applicable. Discharge Plan Admission Admit Date/Time: 01/20/25 03:32 Primary Reason for Your Visit: heart failure, Acute HFrEF Attending Provider: Melba Hartmann Primary Care Provider: Ramone Smiley Consulting Providers: Sandeep Carlton; Lucio Borden; Marcelina Soto Instructions Patient Instructions: Coping with Heart Failure, ED Pneumonia (Adult) Discharge Orders/Prescriptions Prescriptions: New furosemide 40 mg Tablet 40 mg PO BIDLX Qty: 60 2RF prednisone 20 mg Tablet 40 mg PO BREAKFAST 5 Days Qty: 10 0RF levofloxacin 750 mg Tablet 750 mg PO QODAY@2200 Qty: 2 0RF Entresto 24-26 mg Tablet 1 tab PO BID Qty: 60 2RF potassium chloride [K-Tab] 20 mEq tablet extended release 20 meq PO DAILY Qty: 30 2RF Continued Januvia 50 mg tablet 50 mg PO DAILY Jardiance 10 mg tablet 10 mg PO DAILY multivitamin Tablet 1 tab PO DAILY pravastatin 20 mg tablet 20 mg PO DAILY aspirin 81 MG tablet,chewable 81 mg PO DAILY metoprolol tartrate 25 MG tablet 25 mg PO BID magnesium oxide 400 MG tablet 400 mg PO BID pantoprazole 40 MG tablet 40 mg PO DAILY gabapentin 100 mg capsule 100 mg PO QHS roflumilast 500 mcg tablet 500 mcg PO DAILY ascorbic acid (vitamin C) [Vitamin C] 250 mg tablet 250 mg PO DAILY insulin lispro [Humalog KwikPen Insulin] 100 unit/mL Insulin Pen 10 unit subcut TIDAC Rx Instructions: Hold if glucose less than 120 mg/dl Mounjaro 5 mg/0.5 mL pen injector 5 mg subcut QWEEK Patient Comments: PT STATES SHE SOMETIMES TAKES IT ON THURSDAY, SOMETIMES ON FRIDAYS. menthol-zinc oxide [CalaSoothe] 0.44-20.6 % ointment 1 applic topical 4X/DAY PRN (Reason: skin irritation) psyllium husk [Daily Fiber] 0.4 gram capsule 0.4 g PO DAILY mecobalamin (vitamin B12) [B12 Active] 1,000 mcg tablet,chewable 1,000 mcg PO DAILY azelastine 137 mcg (0.1 %) spray,non-aerosol 1 - 2 spray INTRANASAL BID acetaminophen 500 mg Tablet 1,000 mg PO Q6H PRN (Reason: Pain Score 1-3) Rocklatan 0.02-0.005 % Drops 1 drp EACH EYE DAILY diltiazem HCl 180 mg capsule,ext.rel 24h degradable 180 mg PO DAILY ipratropium bromide 21 mcg (0.03 %) spray,non-aerosol 1 - 2 spray INTRANASAL Q6H PRN (Reason: allergy symptoms) insulin glargine [Lantus Solostar U-100 Insulin] 100 unit/mL (3 mL) insulin pen 20 unit subcut BID (DME) lancets [TRUEplus Lancets] 28 gauge misc MISCELLANEOUS Breztri Aerosphere 160-9-4.8 mcg/actuation HFA aerosol inhaler 2 inh inhalation BID Discontinued potassium chloride 20 mEq packet 20 meq PO BID Qty: 30 0RF furosemide [Lasix] 40 mg tablet 40 mg PO DAILY Qty: 5 0RF Referrals / Follow Up: Se Good MD [Med Staff - Active Staff] - Within 2 Weeks Ramone Smiley MD [Primary Care Provider] - Within 1 Week Disposition Disposition (needs filled in before D/C Order can be placed): Home, Self Care 01/24/25 1327<Electronically signed by Melba Hartmann MD>Melba Hartmann MD CC: Dr. Sandeep Carlton DO; Dr. Ramone Smiley MD; Dr. Lucio Borden DO; Dr. Marcelina Soto MD ~ Signed [facility] Work Phone: Discharge summary Author [facility] Note Date/Time January 26, 2025 5:10a m [facility] Medical Records Department [address] [place] [address] Emergency Department Summary 01/26/25 MR#: [id number] Acct: [id number] Name: OLGA DONALDSON Rep #:[id number] : 1945 80 From: Jg Bryan DO PCP: Dr. Ramone Smiley MD Status:REG ER Location: ED HPI History of Present Illness Chief Complaint: Shortness of Breath Informant: patient Narrative Narrative: Patient is an 80-year-old female with past medical history of diabetes hypertension congestive heart failure and COPD. She was recently mated to the hospital secondary to CHF and pneumonia. She was discharged home and states that she does not require supplemental oxygen at baseline. She states this evening she was lying on her couch watching TV when she began to feel short of breath. She denies any chest pain associated with this. She states that she also struggles with anxiety and was unsure if she was having a anxiety attack. Based on her recent need for admission she felt was better to be reevaluated toensure there was no worsening of her symptoms and therefore comes in for evaluation [facility] Medical History Fracture of hip, left, closed Coronary artery disease Paronychia of left index finger Vaginal cyst Anxiety Depression Irregular heart beat Multiple thyroid nodules Foraminal stenosis of lumbar region Lumbar spinal stenosis Diabetic retinopathy Colon polyp Thyroid goiter Hyperlipidemia Hypokalemia Microcytic anemia Neurogenic bladder Hypophosphatemia Hypercalcemia Former smoker UTI (urinary tract infection) Iron deficiency anemia Aortic stenosis Hyponatremia Urine retention Chronic renal failure, stage 3 (moderate) Cellulitis and abscess of finger, unspecified Retinopathy Peripheral artery disease Leg weakness, bilateral GERD (gastroesophageal reflux disease) Chronic idiopathic constipation COPD (chronic obstructive pulmonary disease) Polypharmacy Hypertension Carpal tunnel syndrome of right wrist Strain of right rotator cuff capsule Rhinitis Urinary retention with incomplete bladder emptying Vitamin D deficiency Asthma Pruritus Goiter, nontoxic, multinodular Anemia Diabetes Hx of venous thrombosis and embolism History of malignant neoplasm of breast Type 2 diabetes mellitus Home Medications ?Medication ?Instructions ?Recorded ?Last Taken ?Type aspirin 81 mg chewable tablet 81 mg PO DAILY HERT HEAL TH 01/21/16 01/15/25 History magnesium oxide 400 mg (241.3 mg 400 mg PO BID SUPPLEM ENT 08/16/18 01/15/25 History magnesium) tablet metoprolol tartrate 25 mg tablet 25 mg PO BID BLOOD [place] ESSURE 08/16/18 01/15/25 History pantoprazole 40 mg tablet,delayed 40 mg PO DAILY ACID REFLUX 12/02/19 01/15/25 History release empagliflozin 10 mg tablet 10 mg PO DAILY DIABETES 01/15/25 History (Jardiance) sitagliptin phosphate 50 mg tablet 50 mg PO DAILY DIAB ETES 10/18/20 01/15/25 History (Januvia) multivitamin 1 tab PO DAILY VITAMIN 12/0601/15/25 History pravastatin 20 mg tablet 20 mg PO DAILY CHOLESTEROL 0 12/06/21 01/15/25 History ascorbic acid (vitamin C) 250 mg 250 mg PO DAILY SUPPL EMENT 08/13/23 01/15/25 History tablet (Vitamin C) gabapentin 100 mg capsule 100 mg PO QHS NERVE PAIN 01/14/25 History roflumilast 500 mcg tablet 500 mcg PO DAILY COPD 08/1301/15/25 History insulin lispro 100 unit/mL 10 unit subcut TIDAC short acting 12/30/23 01/15/25 History subcutaneous pen (Humalog KwikPen insulin (U-100) Insulin) budesonide 160 mcg-glycopyr 9 2 inh inhalation BID 06/2401/15/25 History mcg-formot 4.8 mcg/actuation HFA inhaler (Breztri Aerosphere) diltiazem HCl 180 mg 180 mg PO DAILY 01/07/25 History capsule,extended release 24 hr, controlled insulin glargine 100 unit/mL (3 20 unit subcut BID 06/2401/15/25 History mL) subcutaneous pen (Lantus Solostar U-100 Insulin) ipratropium bromide 21 mcg (0.03 1 - 2 spray intranasa l Q6H PRN 01/07/25 Unknown History %) nasal spray allergy symptoms lancets 28 gauge (TRUEplus Lancets) 01/07/25 Unknown History acetaminophen 500 mg tablet 1,000 mg PO Q6H PRN Pain S core 1-3 01/15/25 Unknown History azelastine 137 mcg (0.1 %) nasal 1 - 2 spray intranasa l BID 01/15/25 01/15/25 History spray mecobalamin (vitamin B12) 1,000 1,000 mcg PO DAILY 01/15/25 History mcg chewable tablet (B12 Active) menthol 0.44 %-zinc oxide 20.6 % 1 applic topical 4X/D AY PRN skin 01/15/25 Unknown History topical ointment (CalaSoothe) irritation netarsudil 0.02 %-latanoprost 1 drp EACH EYE DAILY 01/15/25 History 0.005 % eye drops (Rocklatan) psyllium husk 0.4 gram capsule 0.4 g PO DAILY 01/15/25 01/15/25 History (Daily Fiber) tirzepatide 5 mg/0.5 mL 5 mg subcut QWEEK 01/15/25 U nknown History subcutaneous pen injector (Mounjaro) furosemide 40 mg tablet 40 mg PO BIDLX #60 tabs 12/30 03/24 Unknown Rx levofloxacin 750 mg tablet 750 mg PO QODAY@2200 #2 tab s 01/24/25 Unknown Rx potassium chloride 20 mEq 20 meq PO DAILY #30 tabs Unknown Rx tablet,extended release (K-Tab) prednisone 20 mg tablet 40 mg (2 x 20 mg) PO BREAKFA ST 5 01/24/25 Unknown Rx days #10 tabs sacubitril 24 mg-valsartan 26 mg 1 tab PO BID #60 tabs 01/24/25 Unknown Rx tablet (Entresto) Allergy/AdvReac Type Severity Reaction Status Date / Time adhesive tape (tape) Allergy NEEDS Verified 01/26/25 03:06 FOLLOW-UP amoxicillin Allergy YEAST Verified 01/26/25 03:06 INFECTION cephalexin monohydrate (From Allergy Rash Verified 01/26/25 03:06 Keflex) clopidogrel bisulfate (From Allergy Other Verified 01/26/25 03:06 Plavix) Family History Daughter Breast cancer Father Hypertension Sister Cancer Kidney disease Mother Pancreatic cancer Surgical History History of left hip hemiarthroplasty S/P fine needle aspiration (~10/2020) H/O dilation and curettage (~07/10/20) History of Achilles tendon repair Retinopathy History of lumpectomy of left breast Social History household members: spouse Smoking Status: Former smoker alcohol intake: never substance use type: does not use caffeine: Yes what type of physical activity do you participate in: none seatbelt use: always do you feel safe at home: Yes additional social history: [employer]- retired ROS ROS ED Constitutional Constitutional ED: Denies chills or fever(s) Eyes Eyes: Denies change in vision ENT ENT ED: Denies rhinorrhea or sore throat Cardiovascular Cardiovascular: Denies chest pain Respiratory/Chest Respiratory/Chest: Reports dyspnea; Denies cough Gastrointestinal Gastrointestinal: Denies abdominal pain, diarrhea, nausea or vomiting Genitourinary Genitourinary ED: Denies dysuria Musculoskeletal Musculoskeletal: Denies back pain Integumentary Denies rash Neurologic Neurologic: Denies headache(s) Psychiatric Psychiatric: Reports anxiety Hematologic/Lymphatic Hematologic/Lymphatic: Denies easy bleeding or easy bruising Allergic/Immunologic Allergic/Immunologic ED: Denies mouth swelling or tongue swelling EXAM Physical Exam Const Vital Signs: 01/26/25 03:02 01/26/25 03:06 01/26/25 03:14 Temperature 98.3 F Temperature Source Oral Pulse Rate 87 83 Respiratory Rate 15 22 H Respiratory Effort Normal Respiratory Pattern Blood Pressure 120/71 Blood Pressure Mean 87 Pulse Ox 98 97 Oxygen Delivery Method Room Air 01/26/25 03:15 01/26/25 03:30 01/26/25 03:41 Temperature Temperature Source Pulse Rate 83 85 Respiratory Rate 16 Respiratory Effort Respiratory Pattern Blood Pressure 111/49 L 111/64 Blood Pressure Mean 67 79 Pulse Ox 99 98 Oxygen Delivery Method 01/26/25 03:45 01/26/25 03:54 01/26/25 04:00 Temperature Temperature Source Pulse Rate 80 79 Respiratory Rate 20 H Respiratory Effort Respiratory Pattern Normal Blood Pressure 92/49 L 98/51 L Blood Pressure Mean 64 67 Pulse Ox 97 96 Oxygen Delivery Method 01/26/25 04:15 01/26/25 04:30 01/26/25 04:45 Temperature Temperature Source Pulse Rate 80 78 82 Respiratory Rate 27 H Respiratory Effort Respiratory Pattern Blood Pressure 100/43 L 90/38 L 85/41 L Blood Pressure Mean 60 53 55 Pulse Ox 95 96 Oxygen Delivery Method 01/26/25 05:03 Temperature Temperature Source Pulse Rate 87 Respiratory Rate 24 H Respiratory Effort Respiratory Pattern Blood Pressure 116/72 Blood Pressure Mean 87 Pulse Ox 98 Oxygen Delivery Method Positive well nourished and well developed General Appearance ED: well developed; Negative for pallor HEENT HEENT Narrative: No tongue or lip swelling no oral lesions no airway edema or compromise Eyes PERRL and EOMs intact bilaterally General Eye ED: Negative for scleral icterus Neck supple and no JVD Resp normal respiratory effort Resp Narrative: Breath sounds are slightly diminished throughout with faint crackles noted in the bilateral lower lobes However no nasal flaring retractions tachypnea or accessory muscle use Cardio regular rate and regular rhythm Rate: other Other Details: Radial and carotid pulses are equal and symmetric GI normal to inspection, nondistended, normoactive bowel sounds, non-tender, non-distended and no masses GI Narrative: No voluntary guarding or rigidity or pulsatile mass No fluid wave noted Auscultation: normoactive bowel sounds Palpation: soft Extremity normal to inspection Extremity Narrative: No asymmetric edema no pitting edema negative Homans' sign bilaterally Neuro oriented x3, CN's II-XII intact bilaterally and no sensory deficits noted Sensorium / Orientation: alert Motor Exam: strength 5/5 throughout Psych mental status grossly normal Skin no rashes or lesions noted General Skin Exam: Negative for jaundice or pallor MDM MDM MDM Narrative Medical decision making narrative: Patient arrived to the ER with stable vitals. Her pulse ox was 97 to 100% on room air. She did not have any increased work of breathing. Her previous inpatient chart was reviewed. There is concern patient could be having worsening of her recent diagnosed pneumonia or worsening congestive heart failure potentially acute blood loss anemia or a COPD exacerbation or cardiac dysrhythmia. Patient was kept on the desk monitor and there was no dysrhythmia noted. Blood work showed a elevated proBNP however this is much improved from her recent hospitalization where it was approximately 21,000 and now it is approximately 3000. The patient's chest x-ray also showed improvementcompared to recent inpatient evaluation. The patient was walked and her pulse ox remained in the mid 90s on room air. Therefore at this time the patient is not hypoxic at rest or with ambulation she does not have a cardiac dysrhythmia there is no acute blood loss anemia acute kidney injury or clinically significant electrolyte abnormality. Her congestive heart failure is improving and her pneumonia resolving. Therefore at this time I do not feel there is needfor readmission and patient is otherwise safe for discharge History & Record Review Discussion w/independent historian: Patient Additional record(s) reviewed:: Prior inpatient record Lab Data Attestation: I reviewed the patient's lab results. Labs: Laboratory Results - last 24 hr 01/26/25 03:22 WBC 8.9 RBC 4.33 Hgb 11.8 L Hct 37.9 MCV 87.5 MCH 27.3 MCHC 31.1 L RDW Std Deviation 51.0 H RDW Coeff of Vijay 15.9 H Plt Count 247 MPV 10.8 Immature Gran % (Auto) 0.300 Neut % (Auto) 65.0 Lymph % (Auto) 25.1 Bacon % (Auto) 6.7 Eos % (Auto) 2.8 Baso % (Auto) 0.1 Absolute Neuts (auto) 5.8 Absolute Lymphs (auto) 2.24 Nucleated RBC % 0 Sodium 141 Potassium 4.1 Chloride 104 Carbon Dioxide 27.1 Anion Gap 10 BUN 35 H Creatinine 1.16 Estim Creat Clear Calc 38.24 L Est GFR (MDRD) Non-Af 47 L BUN/Creatinine Ratio 30.2 H Glucose 211 H Calcium 10.2 Magnesium 2.7 H NT pro BNP II 3334 H Radiography Diagnostic Testing: Clinical Impression(s) from Imaging Studies Chest X-Ray 01/26/25 03:35 IMPRESSION: Appearance of mild vascular congestion without focal consolidation or pleural effusion identified. Cardiac silhouette is at the upper limits for size. Reading Location: [facility] Chest x-ray as interpreted by the emergency medicine physician reveals vascular congestion consistent with history of CHF without infiltrate or pleural effusion Discharge Plan Triage Chief Complaint: Shortness of Breath ED Provider: Jg Bryan Dx/Rx/DC Orders Clinical Impression: Dyspnea, CHF (congestive heart failure), Hypertension, Hyperlipidemia, COPD (chronic obstructive pulmonary disease), Diabetes mellitus type 2, insulin dependent Instructions: ED Heart Failure, Congestive (CHF), ED Dyspnea Prescriptions: No Action Januvia 50 mg tablet 50 mg PO DAILY Jardiance 10 mg tablet 10 mg PO DAILY multivitamin Tablet 1 tab PO DAILY pravastatin 20 mg tablet 20 mg PO DAILY aspirin 81 MG tablet,chewable 81 mg PO DAILY metoprolol tartrate 25 MG tablet 25 mg PO BID magnesium oxide 400 MG tablet 400 mg PO BID pantoprazole 40 MG tablet 40 mg PO DAILY gabapentin 100 mg capsule 100 mg PO QHS roflumilast 500 mcg tablet 500 mcg PO DAILY ascorbic acid (vitamin C) [Vitamin C] 250 mg tablet 250 mg PO DAILY insulin lispro [Humalog KwikPen Insulin] 100 unit/mL Insulin Pen 10 unit subcut TIDAC Rx Instructions: Hold if glucose less than 120 mg/dl Mounjaro 5 mg/0.5 mL pen injector 5 mg subcut QWEEK Patient Comments: PT STATES SHE SOMETIMES TAKES IT ON THURSDAY, SOMETIMES ON FRIDAYS. menthol-zinc oxide [CalaSoothe] 0.44-20.6 % ointment 1 applic topical 4X/DAY PRN (Reason: skin irritation) psyllium husk [Daily Fiber] 0.4 gram capsule 0.4 g PO DAILY mecobalamin (vitamin B12) [B12 Active] 1,000 mcg tablet,chewable 1,000 mcg PO DAILY azelastine 137 mcg (0.1 %) spray,non-aerosol 1 - 2 spray INTRANASAL BID acetaminophen 500 mg Tablet 1,000 mg PO Q6H PRN (Reason: Pain Score 1-3) Rocklatan 0.02-0.005 % Drops 1 drp EACH EYE DAILY furosemide 40 mg Tablet 40 mg PO BIDLX Qty: 60 2RF prednisone 20 mg Tablet 40 mg PO BREAKFAST 5 Days Qty: 10 0RF levofloxacin 750 mg Tablet 750 mg PO QODAY@2200 Qty: 2 0RF Entresto 24-26 mg Tablet 1 tab PO BID Qty: 60 2RF potassium chloride [K-Tab] 20 mEq tablet extended release 20 meq PO DAILY Qty: 30 2RF diltiazem HCl 180 mg capsule,ext.rel 24h degradable 180 mg PO DAILY ipratropium bromide 21 mcg (0.03 %) spray,non-aerosol 1 - 2 spray INTRANASAL Q6H PRN (Reason: allergy symptoms) insulin glargine [Lantus Solostar U-100 Insulin] 100 unit/mL (3 mL) insulin pen 20 unit subcut BID (DME) lancets [TRUEplus Lancets] 28 gauge misc MISCELLANEOUS Breztri Aerosphere 160-9-4.8 mcg/actuation HFA aerosol inhaler 2 inh inhalation BID Primary Care Provider: Ramone Smiley Referrals: Ramone Smiley MD [Primary Care Provider] - Activity Restrictions/Additional Instructions: Please try to sleep at more of a inclined position as this will help prevent increasing shortness of breath from your congestive heart failure. Your labs and images show that everything is improving from your recent hospitalization and therefore continue all of your home medications as directed. Return to the ER should you have any further concerns Print Language: Kazakh Disposition Disposition: Home, Self Care What to do if you have Problems For any increased pain, shortness of breath, bleeding, nausea or vomiting, chestpain, or any unexpected problems, contact your Primary Care Provider. Call [facility] ([phone]) or report to the closest Emergency Room. Call 911 if necessary. 01/26/25 0510 <Electronically signed by Jg Bryan DO> Cosigner Signature (if applicable): CC: Dr. Ramone Smiley MD ~ Signed [facility] Work Phone: Evaluation note* Diagnosis Onset Date Resolution Status Multiple thyroid nodules acu te Chronic renal failure, stage 3 (moderate) chronic Hypercalcemia chronic Abscess acute Abscess acute Abscess acute [facility] Work Phone: Evaluation note* Diagnosis Iron deficiency anemia due to chronic blood loss- Primary Iron deficiency anemia secondary to blood loss (chronic) [facility]* Diagnosis Onset Date Resolution Status Abscess acute Abscess acute Abscess acute Abscess acute Abscess acute Paronychia of left index finger acute [facility] Work Phone: Evaluation note* Diagnosis Iron deficiency anemia due to chronic blood loss- Primary Iron deficiency anemia secondary to blood loss (chronic) documented in this encounter [facility] note* Diagnosis Anemia, unspecified type- Primary documented in this encounter [facility] note* Diagnosis Iron deficiency anemia due to chronic blood loss- Primary Iron deficiency anemia secondary to blood loss (chronic) documented in this encounter [facility] noteNo assessment information availableWPro[facility]ica [facility] Work Phone: Evaluation note* Diagnosis Onset Date Resolution Status Gastroenteritis acute [facility] Work Phone: Evaluation note* Diagnosis Onset Date Resolution Status Gastroenteritis acute [place] acute Weakness acute Asthma chronic COPD (chronic obstructive pulmonary disease) chronic GERD (gastroesophageal reflux disease) chronic History of malignant neoplasm of breast chronic Hypertension chronic Neurogenic bladder chronic Type 2 diabetes mellitus chr onic Acute hyponatremia resolved Acute UTI resolved LIA (acute kidney injury) re solved [facility] Work Phone: Evaluation note* Diagnosis Onset Date Resolution Status Fracture of hip, left, closed acute [facility] Work Phone: Evaluation note* Diagnosis Onset Date Resolution Status [place] acute Fracture of hip, left, closed acute Microcytic anemia acute Weakness acute Chronic renal failure, stage 3 (moderate) chronic Hypercalcemia chronic [facility] Work Phone: Evaluation note* Diagnosis Onset Date Resolution Status Gastroenteritis acute Acute hyponatremia acute Acute UTI acute LIA (acute kidney injury) ac [place] acute Weakness acute Asthma chronic COPD (chronic obstructive pulmonary disease) chronic GERD (gastroesophageal reflux disease) chronic History of malignant neoplasm of breast chronic Hypertension chronic Neurogenic bladder chronic Type 2 diabetes mellitus chr onic [facility] Work Phone: History and physical note Author Heydi Amaya [facility] August 13, 2023 2:47pm Note Date/Time August 13, 2023 2:33pm [facility] Medical Records Department [address] [place] [address] H&P Exam - Hospitalist 08/13/23 1431 MR#: [id number] Acct: [id number] Name: OLGA DONALDSON Rep #:[id number] : 1945 78 From: Heydi Amaya MD PCP: Dr. Ramone Smiley MD Status:ADM IN Location: [facility] [id number] HPI - General General Date of Admission: 08/13/23 Date of Service: 08/13/23 Chief Complaint: Increasing weakness HPI Narrative OLGA DONALDSON, is [id number] female history of GERD, COPD, hypertension, diabetes, chronic urinary retention with self cathing presented to [facility] 08/13/2023 with increasing generalized weakness and falls. Weakness has been increasing over the past several weeks and has fallen multipletimes requiring help to physically get back up. Today had appointment with PCP but cannot get up off the couch due to weakness to son called EMS. Has had subjective fever off and on but denied any other focal complaints. In the ED patient found to have white blood cell count of 14.7 with left shift, worsened hyponatremia from baseline with a sodium of 127, LIA with creatinine of 1.18 with most recent creatinine 0.83 less than a month ago, calcium of 10.5 and evidence of UTI. Given the above as well as her worsening generalized weakness hospitalist contacted for admission. Patient evaluated at bedside with a familymember present. She reports increasing weakness and falls for the past several weeks with last fall being about last Thursday, reports throughout her fall she had a bruised hip and her back was somewhat sore but no other physical complaints from falling. Has been so weak she has had a hard time getting off the couch. A week or 2 ago she had a period where she was vomiting up clear mucus for a while but this is completely resolved. No abdominal pain, has been self catheterizing for [address] Dr[address] Anguiano and she reportsthis is because of incomplete emptying has not been having any problems with this recently. Denies any chest pain or shortness of breath, has had some subjective chills but no measured fevers. No other acute complaints at this time. [facility] Medical History Anemia Anxiety Aortic stenosis Asthma Carpal tunnel syndrome of right wrist Cellulitis and abscess of finger, unspecified Chronic idiopathic constipation Chronic renal failure, stage 3 (moderate) Colon polyp COPD (chronic obstructive pulmonary disease) Depression Diabetes Diabetic retinopathy Foraminal stenosis of lumbar region Former smoker GERD (gastroesophageal reflux disease) Goiter, nontoxic, multinodular History of malignant neoplasm of breast Hx of venous thrombosis and embolism Hypercalcemia Hyperlipidemia Hypertension Hypokalemia Hyponatremia Hypophosphatemia Iron deficiency anemia Irregular heart beat Leg weakness, bilateral Lumbar spinal stenosis Microcytic anemia Multiple thyroid nodules Neurogenic bladder Paronychia of left index finger Peripheral artery disease Polypharmacy Pruritus Retinopathy Rhinitis Strain of right rotator cuff capsule Thyroid goiter Type 2 diabetes mellitus Urinary retention with incomplete bladder emptying Urine retention UTI (urinary tract infection) Vaginal cyst Vitamin D deficiency Home Medications lisinopril 40 mg tablet 40 mg PO BID BLOOD PRESSURE 12/25/14 [History Last Taken 08/12/23] aspirin 81 mg chewable tablet 81 mg PO DAILY [facility] 01/21/16 [History Last Taken 08/12/23] albuterol sulfate 90 mcg/actuation aerosol inhaler 2 puff inhalation Q4H PRN Sob&/Or Wheezing 08/16/18 [History Last Taken 07/10/20 06:30] diltiazem HCl 180 mg tablet,extended release 24 hr 180 mg PO DAILY BLOOD PRESSURE 08/16/18 [History Last Taken 08/12/23] magnesium oxide 400 mg (241.3 mg magnesium) tablet 400 mg PO BID SUPPLEMENT 08/16/18 [History Last Taken 08/12/23] metoprolol tartrate 25 mg tablet 25 mg PO BID BLOOD PRESSURE 08/16/18 [History Last Taken 08/12/23] insulin aspart U-100 100 unit/mL subcutaneous solution 22 unit subcut BIDCM DIABETES 12/02/19 [History Last Taken 08/12/23] insulin detemir U-100 100 unit/mL (3 mL) subcutaneous pen 56 units subcut BIDCM DIABETES 12/02/19 [History Last Taken 08/12/23] pantoprazole 40 mg tablet,delayed release 40 mg PO QHS ACID REFLUX 12/02/19 [History Last Taken 08/12/23] empagliflozin 10 mg tablet (Jardiance) 10 mg PO DAILY DIABETES 10/18/20 [History Last Taken 08/12/23] sitagliptin phosphate 50 mg tablet (Januvia) 50 mg PO DAILY DIABETES 10/18/20 [History Last Taken 08/12/23] budesonide-formoterol HFA 160 mcg-4.5 mcg/actuation aerosol inhaler (Symbicort) 2 puff inhalation BID 12/06/21 [History Last Taken 08/12/23] multivitamin 1 tab PO DAILY 12/06/21 [History Last Taken 08/12/23] potassium chloride 20 mEq tablet,extended release(part/cryst) (Klor-Con M) 40 meq PO BID SUPPLEMENT 12/06/21 [History Last Taken 08/12/23] pravastatin 20 mg tablet 20 mg PO DAILY CHOLESTEROL 12/06/21 [History Last Taken 08/12/23] ascorbic acid (vitamin C) 250 mg tablet (Vitamin C) 250 mg PO DAILY SUPPLEMENT 08/13/23 [History Last Taken 08/12/23] azelastine 137 mcg (0.1 %) nasal spray aerosol 137 mcg intranasal BID RUNNY NOSE08/13/23 [History Last Taken 08/12/23] cod liver oil 1 cap PO DAILY SUPPLEMENT 08/13/23 [History Last Taken 08/12/23] dulaglutide 0.75 mg/0.5 mL subcutaneous pen injector (Trulicity) 0.75 mg subcut MO DIABETES 08/13/23 [History Last Taken 08/10/23] fiber 1 cap PO DAILY CONSTIPATION 08/13/23 [History Last Taken 08/12/23] gabapentin 100 mg capsule 100 mg PO QHS NERVE PAIN 08/13/23 [History Last Taken 08/12/23] roflumilast 500 mcg tablet 500 mcg PO DAILY COPD 08/13/23 [History Last Taken 08/12/23] Allergy/AdvReac Type Severity Reaction Status Date / Time adhesive tape [tape] Allergy NEEDS Verified 08/13/23 10:00 FOLLOW-UP amoxicillin Allergy YEAST Verified 08/13/23 10:00 INFECTION cephalexin monohydrate Allergy Rash Verified 08/13/23 10:00 [From Keflex] clopidogrel bisulfate Allergy Other Verified 08/13/23 10:00 [From Plavix] Family History Daughter Breast cancer Father Hypertension Sister Cancer Kidney disease Mother Pancreatic cancer Surgical History H/O dilation and curettage (~07/10/20) History of Achilles tendon repair History of lumpectomy of left breast Retinopathy S/P fine needle aspiration (~10/2020) Social History household members: spouse Smoking Status: Former smoker alcohol intake: never substance use type: does not use caffeine: Yes what type of physical activity do you participate in: none seatbelt use: always do you feel safe at home: Yes additional social history: [employer]- retired ROS ROS Narrative General: Has had some subjective chills HENT: Denies headache, denies stuffy nose, denies sore throat EYES: Denies changes in vision Resp: Denies cough, denies shortness of breath Cardiac: Denies chest pain GI: Denies abdominal pain, denies changes in bowel, denies nausea/vomiting : Denies changes in urination, chronically self catheterizes Extremity: Denies swelling MSK: Generalized weakness Neuro: Denies any numbness/tingling Heme: Denies any bleeding or bruising Skin: Denies rashes Psychiatric: No complaints voiced Vital Signs Vital Signs Vital Signs: 08/13/23 10:03 08/13/23 10:12 08/13/23 14:15 Temperature 97.9 F 98.6 F Temperature Source Temporal Oral Pulse Rate 116 H 102 H Respiratory Rate 18 20 H Respiratory Effort Normal Non-Labored Respiratory Pattern Normal Blood Pressure 126/58 H 152/59 H Blood Pressure Mean 80 90 Pulse Ox 99 97 Oxygen Delivery Method Room Air Room Air 08/13/23 14:17 08/13/23 14:18 Temperature 98.6 F 98.6 F Temperature Source Oral Pulse Rate 107 H 107 H Respiratory Rate 20 H 20 H Respiratory Effort Respiratory Pattern Blood Pressure 152/59 H 152/59 H Blood Pressure Mean 90 90 Pulse Ox 97 97 Oxygen Delivery Method Room Air Weight Weight: 63 kg Body Mass Index (BMI) 24.5 Physical Exam Narrative General: Alert, no apparent distress HEENT: normocephalic Eyes: Anicteric, normal conjunctiva, extraocular movements grossly intact, multiple skin tags Neck: Supple Respiratory: Clear to auscultation bilaterally, normal respiratory effort Cardiovascular: Regular rate and rhythm GI: Soft, nontender, nondistended Extremities: No edema Musculoskeletal: Moving all extremities Neuro: No overt focal neurological deficits Skin: No rashes appreciated Psych: Cooperative Results Lab / Micro Data 08/13/23 10:15 08/13/23 10:15 Labs: Laboratory Results - last 24 hr 08/13/23 10:15: WBC 14.7 H, RBC 3.83 L, Hgb 10.0 L, Hct 32.6 L, MCV 85.1, MCH 26.1 L, MCHC 30.7 L, RDW Std Deviation 53.7 H, RDW Coeff of Vijay 17.2 H, Plt Count 412, MPV 10.8, Immature Gran % (Auto) 1.400 H, Neut % (Auto) 82.7 H, Lymph% (Auto) 9.4 L, Bacon % (Auto) 6.1, Eos % (Auto) 0.1, Baso % (Auto) 0.3, AbsoluteNeuts (auto) 12.1 H, Absolute Lymphs (auto) 1.37, Nucleated RBC % 0, Sodium 127 L, Potassium 3.8, Chloride 92 L, Carbon Dioxide 23.0, Anion Gap 12, BUN 31 H, Creatinine 1.18 H, Estim Creat Clear Calc 31.98, Est GFR (MDRD) Af Amer 57 L, Est GFR (MDRD) Non-Af 47 L, BUN/Creatinine Ratio 26.3 H, Glucose 212 H, Calcium 10.5 H, Total Bilirubin 0.60, AST 36, ALT 29, Alkaline Phosphatase 105, TroponinI High Sens 39, Total Protein 7.8, Albumin 2.2 L, Globulin 5.6 H, Albumin/Globulin Ratio 0.4 L 08/13/23 11:10: Lactic Acid 1.2 08/13/23 12:40: Urine Color Yellow, Urine Clarity Sl. Cloudy, Urine pH 5.0, Ur Specific Randolph 1.015, Urine Protein 30 H, Urine Glucose (UA) 1000 H, Urine Ketones 50 H, Urine Occult Blood 50 H, Urine Nitrite Negative, Urine Bilirubin Negative, Urine Urobilinogen Normal, Ur Leukocyte Esterase 500 H, Urine RBC 0-5 SEEN, Urine WBC 10-25 SEEN, Ur Squamous Epith Cells 0 SEEN, Urine Bacteria 3+, Urine Mucus 0 SEEN Micro: Microbiology 08/13/23 11:00 Nasal Secretion SARS-CoV-2 & FLU Antigen (Rapid) - Final Imagaing Radiology Impression Chest X-Ray 08/13/23 10:45 IMPRESSION: Hyperinflation. The lungs are clear. Electronically Signed: Robert Randall MD at 11:04 EST , Assessment & Plan Assessment/Plan (1) LIA (acute kidney injury): (2) Acute hyponatremia: (3) Acute UTI: (4) Asthma: (5) COPD (chronic obstructive pulmonary disease): (6) GERD (gastroesophageal reflux disease): (7) History of malignant neoplasm of breast: (8) Hypertension: (9) Neurogenic bladder: (10) Type 2 diabetes mellitus: PLAN: Plan # Generalized weakness -Likely multifactorial contributed to by dehydration with LIA, hypercalcemia, UTI as well as hyponatremia -Workup and management as below -Consult PT/OT -CM and SW c/s # UTI in setting of chronic urinary retention with self-catheterization -UA suggestive of UTI -Also has elevated white blood cell count -Blood cultures and urine culture -Due to allergies patient started on Cipro, continue Cipro -IV fluids -Given her urinary retention and UTI will place temporary Serna # LIA -May be due to poor p.o. intake versus underlying infection versus hypercalcemiacausing dehydration -IV fluids -Antibiotics -If does not improve with conservative measures will need further workup -Hold home lisinopril # Hyponatremia -Baseline quite variable, most recently 131 and is down to 127 -Will obtain urine and serum studies to better evaluate # Hypercalcemia -Will hydrate and obtain further workup -Vitamin D, mag, Phos, PTH # COPD -Continue home medications # Hypertension -Continue home medications but will hold lisinopril due to LIA #GERD -Continue PPI #Type 2 diabetes mellitus -Glucose checks and sliding scale insulin -Long-acting and Premeal insulin -Hold oral hypoglycemics #DVT ppx: Heparin subcu Heydi Amaya MD Charges/Coding Visit Charges Inpatient E&M: 01228 Init Hosp L2 08/13/23 1447 <Electronically signed by Heydi Amaya MD> Cosigner Signature (if applicable): CC: Dr. Ramone Smiley MD; Dr. Heydi Amaya MD~ Signed [facility] Work Phone: Hospital Discharge instructions Additional Instructions Chest x-ray negative. COVID, flu, RSV negative. Your glucose 321 the lab normal gap. You are given 10 units of short acting insulin. You were started on antibiotics and steroids. Your glucose will be elevated with the steroids. Continue insulin including your sliding scale. Next dose of antibiotics steroids is tomorrow. This was sent to [facility] Work Phone: Hospital Discharge instructions Additional Instructions Take medications as prescribed. Follow-up your doctor in outpatient setting. Return with worsening symptoms or concerns.[facility] Work Phone: Hospital Discharge instructions Additional Instructions Please try to sleep at more of a inclined position as this will help prevent increasing shortness of breath from your congestive heart failure. Your labs and images show that everything is improving from your recent hospitalization and therefore continue all of your home medications as directed. Return to the ER should you have any further concernsWPro[facility] Work Phone: Reason for referral (narrative)No reason for referral information availableWProMedica [facility] Work Phone: Summary Purpose Family History No Family History Records Found Relationship Condition Age at Onset Recorded Date/T davis daughter Malignant neoplasm of breast Unknown father Hypertension Unknown sister Malignant neoplasm Unknown Kidney disorder Unknown mother Malignant neoplasm of pancreas Unknown Advance Directives No Advanced Directives Records Found Advance Directive Response Recorded Date/ Time Advance Directives Yes December 02 8:47am Living Will Yes December 02, 2021 8:47am Power of Cylinder Checker Yes December 02 8:47am Documents on File Type Date Recorded 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 Advance Directive(s) 05/12/2016 10:06 AM Advance Directive(s) 04/30/2016 11:10 AM Advance Directive(s) 02/19/2016 5:55 AM Advance Directive(s) 02/14/2016 3:07 PM Advance Directive Response Recorded Date/ Time Advance Directives Yes December 02 7:47am Living Will Yes July 14, 2 022 2:52pm Power of Cylinder Checker Yes July 14, 2022 2:52pm Name of Medical Power of Cylinder Checker son July 14, 2022 2:52pm Advance Directive Response Recorded Date/ Time Advance Directives Yes December 02 8:47am Living Will Yes July 14, 2 022 3:52pm Power of Cylinder Checker Yes July 14, 2022 3:52pm Advance Directive Response Recorded Date/ Time Name of Medical Power of Cylinder Checker SHANTELLE January 28, 2023 3:11pm Advance Directives Yes December 02 8:47am Living Will Yes January 28, 2023 3 :11pm Power of Cylinder Checker Yes January 28, 2023 3:11pm Advance Directive Response Recorded Date/ Time Name of Medical Power of Cylinder Checker Sarita Donaldson July 18, 2023 11:35pm Advance Directives Yes December 02 7:47am Living Will Yes July 18, 2 023 11:35pm Power of Cylinder Checker Yes July 18, 2023 11:35pm Advance Directive Response Recorded Date/ Time Name of Medical Power of Cylinder Checker . August 07, 2023 9:45pm Advance Directives Yes December 02 7:47am Living Will No August 13, 2 023 3:22pm Power of Cylinder Checker No August 13, 2023 3:22pm Name of Medical Power of Cylinder Checker Sarita Donaldson July 18, 2023 11:35pm Advance Directive Response Recorded Date/ Time Advance Directives Yes December 02 8:47am Living Will No August 13, 2 023 4:22pm Power of Cylinder Checker No August 13, 2023 4:22pm Advance Directive Response Recorded Date/ Time Advance Directives Yes December 02 8:47am Living Will No December 27, 2023 11:02pm Power of Cylinder Checker No December 26 11:02pm Advance Directive Response Recorded Date/ Time Advance Directives Yes December 02 8:47am Living Will No December 28, 2023 12:27am Power of Cylinder Checker No December 27 12:27am Advance Directive Response Recorded Date/ Time Name of Medical Power of Cylinder Checker . August 07, 2023 9:45pm Advance Directives Yes December 02 7:47am Living Will No August 13, 023 11:05am Power of Cylinder Checker No August 13, 2023 11:05am Name of Medical Power of Cylinder Checker Sarita Donaldson July 18, 2023 11:35pm Advance Directive Response Recorded Date/ Time Do you have a Healthcare Power of Cylinder Checker? No January 07, 2025 3:00pm Advance Directives Yes December 02 8:47am Advance Directive Response Recorded Date/ Time Do you have a Healthcare Power of Cylinder Checker? No January 15, 2025 2:24pm Do you have a Healthcare Power of Cylinder Checker? No January 07, 2025 3:00pm Advance Directives Yes December 02 8:47am Advance Directive Response Recorded Date/ Time Do you have a Healthcare Power of Cylinder Checker? No January 15, 2025 2:24pm Do you have a Healthcare Power of Cylinder Checker? No January 20, 2025 4:39am Do you have a Healthcare Power of Cylinder Checker? No January 07, 2025 3:00pm Advance Directives Yes December 02 8:47am Advance Directive Response Recorded Date/ Time Do you have a Healthcare Power of Cylinder Checker? No January 15, 2025 2:24pm Do you have a Healthcare Power of Cylinder Checker? No January 20, 2025 4:39am Do you have a Healthcare Power of Cylinder Checker? No January 07, 2025 3:00pm Do you have a Healthcare Power of Cylinder Checker? No January 26, 2025 3:01am Advance Directives Yes December 02 8:47am Chief Complaint and Reason for Visit Chief Complaint THYROID SCREENING HYPERPARATHYROIDISM VAGINAL LUMP, PAINFUL VAGINAL LUMP F/U fu per MH Reason for Visit Multiple thyroid nod ules Chronic renal failure, stage 3 (moderate) Hypercalcemia Abscess Abscess Abscess Chief Complaint VAGINAL LUMP, PAINFU L VAGINAL LUMP F/U fu per F/U PER SM 1 WK FU LEFT FINGER COMPLAINT/CONCERNED FOR INFECTION NEUROGENIC BLADDER, URINARY RETENTION Reason for Visit Abscess Abscess Abscess Abscess Abscess Paronychia of left index finger Chief Complaint back HX BREAST CANCER Chief Complaint EORDER HTN Chief Complaint EORDER HTN GOITER Chief Complaint EORDER HTN GOITER urinary retention Chief Complaint urinary retention L radial palmar wrist with swelling, tender. s/p LABSPEC THROWING UP, CHILLS, ACHY SOB Reason for Visit Gastroenteritis Chief Complaint THROWING UP, CHILLS, ACHY SOB FALL WEAKNESS, LIA, UTI, FREQUENT FALLS WEAKNESS, LIA, UTI, FREQUENT FALLS WEAKNESS, LIA, UTI, FREQUENT FALLS WEAKNESS, LIA, UTI, FREQUENT FALLS WEAKNESS, LIA, UTI, FREQUENT FALLS Reason for Visit Gastroenteritis Falls Weakness Asthma COPD (chronic obstructive pulmonary disease) GERD (gastroesophageal reflux disease) History of malignant neoplasm of breast Hypertension Neurogenic bladder Type 2 diabetes mellitus Acute hyponatremia Acute UTI LIA (acute kidney injury) Chief Complaint LEFT HIP FRACTURE Reason for Visit Fracture of hip, lef t, closed Chief Complaint LEFT HIP FRACTURE LEFT HIP FRACTURE LEFT HIP FRACTURE LEFT HIP FRACTURE Reason for Visit Falls Fracture of hip, left, closed Microcytic anemia Weakness Chronic renal failure, stage 3 (moderate) Hypercalcemia Chief Complaint L radial palmar wris t with swelling, tender. s/p LABSPEC THROWING UP, CHILLS, ACHY SOB FALL WEAKNESS, LIA, UTI, FREQUENT FALLS Reason for Visit Gastroenteritis Acute hyponatremia Acute UTI LIA (acute kidney injury) Falls Weakness Asthma COPD (chronic obstructive pulmonary disease) GERD (gastroesophageal reflux disease) History of malignant neoplasm of breast Hypertension Neurogenic bladder Type 2 diabetes mellitus Chief Complaint L radial palmar wris t with swelling, tender. s/p LABSPEC THROWING UP, CHILLS, ACHY SOB FALL WEAKNESS, LIA, UTI, FREQUENT FALLS WEAKNESS, LIA, UTI, FREQUENT FALLS WEAKNESS, LIA, UTI, FREQUENT FALLS WEAKNESS, LIA, UTI, FREQUENT FALLS WEAKNESS, LIA, UTI, FREQUENT FALLS Reason for Visit Gastroenteritis Acute hyponatremia Acute UTI LIA (acute kidney injury) Falls Weakness Asthma COPD (chronic obstructive pulmonary disease) GERD (gastroesophageal reflux disease) History of malignant neoplasm of breast Hypertension Neurogenic bladder Type 2 diabetes mellitus Chief Complaint Admit Date LT HIP/PT HAS RX November 21, 2024 2:0 0pm sob January 07, 2025 2:55p m Chief Complaint Admit Date LT HIP/PT HAS RX November 21, 2024 2:0 0pm sob January 07, 2025 2:55p m copd January 15, 2025 2:14p m Chief Complaint Admit Date LT HIP/PT HAS RX November 21, 2024 2:0 0pm sob January 07, 2025 2:55p m copd January 15, 2025 2:14p m RLL PNA, AE ASTHMA/COPD, ACUTE HYPOXIC/H YPERCAPNIC January 20, 2025 3:32am RLL PNA, AE ASTHMA/COPD, ACUTE HYPOXIC/H YPERCAPNIC January 21, 2025 10:39am RLL PNA, AE ASTHMA/COPD, ACUTE HYPOXIC/H YPERCAPNIC January 22, 2025 9:49am RLL PNA, AE ASTHMA/COPD, ACUTE HYPOXIC/H YPERCAPNIC January 23, 2025 10:37am RLL PNA, AE ASTHMA/COPD, ACUTE HYPOXIC/H YPERCAPNIC January 23, 2025 3:28pm Reason for Visit Admit Date Acute hypoxemic respiratory failure January 20, 2025 3:32am Acute hypoxic on chronic hypercapnic res piratory failure January 20, 2025 3:32am Elevated troponin January 20, 2025 3:32a m Lactic acidosis January 20, 2025 3:32a m Leukocytosis January 20, 2025 3:32a m Obesity (BMI 30.0-34.9) January 20, 2025 3 :32am Pneumonia January 20, 2025 3:32a m Aortic stenosis January 20, 2025 3:32a m CHF exacerbation January 20, 2025 3:32a m COPD exacerbation January 20, 2025 3:32a m Coronary artery disease January 20, 2025 3 :32am Hypertension January 20, 2025 3:32a m Chief Complaint Admit Date LT HIP/PT HAS RX November 21, 2024 2:0 0pm sob January 07, 2025 2:55p m copd January 15, 2025 2:14p m RLL PNA, AE ASTHMA/COPD, ACUTE HYPOXIC/H YPERCAPNIC January 20, 2025 3:32am RLL PNA, AE ASTHMA/COPD, ACUTE HYPOXIC/H YPERCAPNIC January 21, 2025 10:39am RLL PNA, AE ASTHMA/COPD, ACUTE HYPOXIC/H YPERCAPNIC January 22, 2025 9:49am RLL PNA, AE ASTHMA/COPD, ACUTE HYPOXIC/H YPERCAPNIC January 23, 2025 10:37am RLL PNA, AE ASTHMA/COPD, ACUTE HYPOXIC/H YPERCAPNIC January 23, 2025 3:28pm RLL PNA, AE ASTHMA/COPD, ACUTE HYPOXIC/H YPERCAPNIC January 24, 2025 1:30pm Chief Complaint Admit Date LT HIP/PT HAS RX November 21, 2024 2:0 0pm sob January 07, 2025 2:55p m copd January 15, 2025 2:14p m RLL PNA, AE ASTHMA/COPD, ACUTE HYPOXIC/H YPERCAPNIC January 20, 2025 3:32am RLL PNA, AE ASTHMA/COPD, ACUTE HYPOXIC/H YPERCAPNIC January 21, 2025 10:39am RLL PNA, AE ASTHMA/COPD, ACUTE HYPOXIC/H YPERCAPNIC January 22, 2025 9:49am RLL PNA, AE ASTHMA/COPD, ACUTE HYPOXIC/H YPERCAPNIC January 23, 2025 10:37am RLL PNA, AE ASTHMA/COPD, ACUTE HYPOXIC/H YPERCAPNIC January 23, 2025 3:28pm RLL PNA, AE ASTHMA/COPD, ACUTE HYPOXIC/H YPERCAPNIC January 24, 2025 1:30pm sob January 26, 2025 3:00a m Additional Source Comments INFORMATION SOURCE (unrecogn ized section and content) DATE CREATED AUTHOR 02/25/2018 [facility] DATE CREATED AUTHOR AUTHOR'S ORGANIZ ATION 05/08/2022 [facility] DATE CREATED AUTHOR AUTHOR'S ORGANIZ ATION 02/01/2025 [facility] Goals (unrecognized section and content) Goals may be documented in a n alternate sectionGoals may be documented in an alternate sectionGoals may be documented in an alternate sectionGoals may be documented in an alternate sectionGoals may be documented in an alternate sectionGoals may be documented in an alternate sectionGoals may be documented in an alternate sectionGoals may be documented in an alternate sectionGoals may be documented in an alternate sectionGoals may be documented in an alternate sectionGoals may be documented in an alternate sectionGoals may be documented in an alternate sectionGoals may be documented in an alternate sectionGoals may be documented in an alternate section Source Comments (unrecognize d section and content) In the event this informatio n is protected by the Federal Confidentiality of Alcohol and Drug Abuse Patient Records regulations: The Federal rules restrict any use of the information to criminally investigate or prosecute any alcohol or drug abuse patient.[facility] the event this information is protected by the Federal Confidentiality of Alcohol and Drug Abuse Patient Records regulations: The Federal rules restrict any use of the information to criminally investigate or prosecute any alcohol or drug abuse patient.[facility] the event this information is protected by the Federal Confidentiality of Alcohol and Drug Abuse Patient Records regulations: The Federal rules restrict any use of the information to criminally investigate or prosecute any alcohol or drug abuse patient.[facility] the event this information is protected by the Federal Confidentiality of Alcohol and Drug Abuse Patient Records regulations: The Federal rules restrict any use of the information to criminally investigate or prosecute any alcohol or drug abuse patient.[facility] Campus[facility] the event this information is protected by the Federal Confidentiality of Alcohol and Drug Abuse Patient Records regulations: The Federal rules restrict any use of the information to criminally investigate or prosecute any alcohol or drug abuse patient.[facility] Care Teams (unrecognized sec tion and content) Team Status: Active Member Role Status Dates Dr. Ramone Smiley MD Primary Care Provider Active Team Status: Active Member Role Status Dates Dr. Ramone Smiley MD Primary Care Provider Active Start: November 21, 2024 Dr. Ramone Smiley MD Attending Provider Active St art: November 21, 2024 Dr. Ramone Smiley MD Referring Provider Active St art: November 21, 2024 Team Status: Inactive Member Role Status Dates Dr. Ramone Smiley MD Primary Care Provider Active Start: January 07, 2025 End: January 07, 2025 Dr. Ethan Darnell DO Attending Provider Active Start : January 07, 2025 End: January 07, 2025 Dr. Ethan Darnell DO Emergency Provider Active Start : January 07, 2025 End: January 07, 2025 Team Status: Inactive Member Role Status Dates Dr. Ramone Smiley MD Primary Care Provider Active Start: January 15, 2025 End: January 15, 2025 Dr. Jeevan Yoder DO Attending Provider Active Start: January 15, 2025 End: January 15, 2025 Dr. Jeevan Yoder DO Emergency Provider Active Start: January 15, 2025 End: January 15, 2025 Team Status: Inactive Member Role Status Dates Dr. Ramone Smiley MD Primary Care Provider Active Start: January 19, 2025 End: January 19, 2025 Dr. Ramone Smiley MD Attending Provider Active St art: January 19, 2025 End: January 19, 2025 Dr. Ramone Smiley MD Referring Provider Active St art: January 19, 2025 End: January 19, 2025 Team Status: Inactive Member Role Status Dates Dr. Ramone Smiley MD Primary Care Provider Active Start: January 20, 2025 End: January 24, 2025 Dr. Jeevan Yoder , DO Emergency Provider Active Start: January 20, 2025 End: January 24, 2025 Dr. Sandeep Carlton , DO Admit Provider Active Start: January 20, 2025 End: January 24, 2025 Dr. Sandeep Carlton , DO Other Provider Active Start: January 20, 2025 End: January 24, 2025 Dr. Melba Hartmann MD Attending Provider Active Start: January 20, 2025 End: January 24, 2025 Dr. Lucio Borden , DO Other Provider Active S tart: January 20, 2025 End: January 24, 2025 Dr. Marcelina Soto MD Other Provider Active Start: January 20, 2025 End: January 24, 2025 Team Status: Active Member Role Status Dates Dr. Ramone Smiley MD Primary Care Provider Active Start: January 20, 2025 Dr. Marcelina Soto MD Attending Provider Activ e Start: January 20, 2025 Team Status: Active Member Role Status Dates Dr. Ramone Smiley MD Primary Care Provider Active Start: January 21, 2025 Dr. Jeevan Yoder , DO Emergency Provider Active Start: January 21, 2025 Dr. Sandeep Carlton , DO Admit Provider Active Start: January 21, 2025 Dr. Sandeep Carlton , DO Other Provider Active Start: January 21, 2025 Dr. Melba Hartmann MD Attending Provider Active Start: January 21, 2025 Dr. Melba Hartmann MD Other Provider Active St art: January 21, 2025 Dr. Lucio Borden , DO Other Provider Active S tart: January 21, 2025 Dr. Marcelina Soto MD Other Provider Active Start: January 21, 2025 Team Status: Active Member Role Status Dates Dr. Ramone Smiley MD Primary Care Provider Active Start: January 22, 2025 Dr. Jeevan Yoder , Emergency Provider Active Start: January 22, 2025 Dr. Sandeep Carlton , DO Admit Provider Active Start: January 22, 2025 Dr. Sandeep Carlton , DO Other Provider Active Start: January 22, 2025 Dr. Melba Hartmann MD Attending Provider Active Start: January 22, 2025 Dr. Melba Hartmann MD Other Provider Active St art: January 22, 2025 Dr. Lucio Borden , DO Other Provider Active S tart: January 22, 2025 Dr. Marcelina Soto MD Other Provider Active Start: January 22, 2025 Team Status: Active Member Role Status Dates Dr. Ramone Smiley MD Primary Care Provider Active Start: January 23, 2025 Dr. Jeevan Yoder , DO Emergency Provider Active Start: January 23, 2025 Dr. Sandeep Carlton , DO Admit Provider Active Start: January 23, 2025 Dr. Sandeep Carlton , DO Other Provider Active Start: January 23, 2025 Dr. Melba Hartmann MD Attending Provider Active Start: January 23, 2025 Dr. Melba Hartmann MD Other Provider Active St art: January 23, 2025 Dr. Lucio Borden , DO Other Provider Active S tart: January 23, 2025 Dr. Marcelina Soto MD Other Provider Active Start: January 23, 2025 Team Status: Active Member Role Status Dates Dr. Ramone Smiley MD Primary Care Provider Active Start: January 23, 2025 Dr. Jeevan Yoder , DO Emergency Provider Active Start: January 23, 2025 Dr. Sandeep Carlton , DO Admit Provider Active Start: January 23, 2025 Dr. Sandeep Carlton , DO Other Provider Active Start: January 23, 2025 Dr. Melba Hartmann MD Other Provider Active St art: January 23, 2025 Dr. Lucio Borden , DO Other Provider Active S tart: January 23, 2025 Dr. Marcelina Soto MD Other Provider Active Start: January 23, 2025 Dr. Becca Silverman MD Attending Provider Active Start: January 23, 2025 Team Status: Active Member Role Status Dates Dr. Ramone Smiley MD Primary Care Provider Active Start: January 24, 2025 Dr. Jeevan Yoder , DO Emergency Provider Active Start: January 24, 2025 Dr. Sandeep Carlton , DO Admit Provider Active Start: January 24, 2025 Dr. Sandeep Carlton , DO Other Provider Active Start: January 24, 2025 Dr. Melba Hartmann MD Attending Provider Active Start: January 24, 2025 Dr. Melba Hartmann MD Other Provider Active St art: January 24, 2025 Dr. Lucio Borden DO Other Provider Active S tart: January 24, 2025 Dr. Marcelina Soto MD Other Provider Active Start: January 24, 2025 Team Status: Inactive Member Role Status Dates Dr. Ramone Smiley MD Primary Care Provider Active Start: January 26, 2025 End: January 26, 2025 Dr. Jg Bryan , Emergency Provider Active Start: January 26, 2025 End: January 26, 2025 It Data Architect Relationship Specialty Start Date End Date Ramone Smiley MD PCP - General Family Practice 08/16/15 It Data Architect Relationship Specialty Start Date End Date Ramone Smiley MD PCP - General Family Practice 08/16/15 It Data Architect Relationship Specialty Start Date End Date Ramone Smiley MD PCP - General Family Practice 08/16/15 It Data Architect Relationship Specialty Start Date End Date Ramone Smiley MD PCP - General Family Practice 08/16/15 It Data Architect Relationship Specialty Start Date End Date Ramone Smiley MD PCP - General Family Practice 08/16/15 Team Status: Active Member Role Status Dates Dr. Ramone Smiley MD Family Provider Active Dr. Ramone Smiley MD Primary Care Provider Active Team Status: Inactive Member Role Status Dates Dr. Ramone Smiley MD Primary Care Provide r, Attending Provider, Referring Provider Active Team Status: Active Member Role Status Dates Dr. Ramone Smiley MD Primary Care Provide r, Attending Provider, Referring Provider Active Team Status: Inactive Member Role Status Dates Dr. Ramone Smiley MD Primary Care Provider Active Dr. Joseph Lockwood MD Emergency Provider Active Team Status: Inactive Member Role Status Dates Dr. Ramone Smiley MD Primary Care Provider Active Dr. Joseph Lockwood MD Attending Provider, Emergency Pr ovider Active Team Status: Inactive Member Role Status Dates Dr. Ramone Smiley MD Primary Care Provider Active Dr. Asha Anguiano MD Attending Provider, Referring P rovider Active Team Status: Inactive Member Role Status Dates Dr. Ramone Smiley MD Primary Care Provider, Referring P rovider Active Junito BHATTI, PA Attending Provider Active Team Status: Inactive Member Role Status Dates Dr. Ramone Smiley MD Primary Care Provider Active Dr. Cheryl Mendez , Attending Provider, Referring P rovider Active Team Status: Inactive Member Role Status Dates Dr. Ramone Smiley MD Primary Care Provider Active Dr. Winston Gill MD Emergency Provider Active Team Status: Active Member Role Status Dates Dr. Ramone Smiley MD Primary Care Provider Active Dr. Robert Allison DO Emergency Provider Active Dr. Heydi Amaya MD Admit Provider, Other Provider A ctive Dr. Nestor Bartlett , Attending Provider, Other Provider Active Team Status: Active Member Role Status Dates Dr. Ramone Smiley MD Primary Care Provider Active Dr. Robert Allison DO Emergency Provider Active Dr. Heydi Amaya MD Admit Provider Active Dr. Ramone Veras DO Other Provider Active Dr. Nestor Bartlett , DO Other Provider Active Dr. Sandeep Denson MD Attending Provider, Other Provid er Active Team Status: Inactive Member Role Status Dates Dr. Ramone Smiley MD Primary Care Provider Active Billy Kothari MD Attending Provider, Emergency Provid er Active Team Status: Inactive Member Role Status Dates Dr. Ramone Smiley MD Primary Care Provider Active Dr. Robert Allison DO Emergency Provider Active Dr. Heydi Amaya MD Admit Provider Active Dr. Ramone Veras , Other Provider Active Dr. Nestor Bartlett , DO Other Provider Active Dr. Sandeep Denson MD Attending Provider Active Team Status: Inactive Member Role Status Dates Dr. Ramone Smiley MD Primary Care Provider Active Dr. Winston Gill MD Attending Provider, Emergency Provider Active Team Status: Inactive Member Role Status Dates Dr. Ramone Smiley MD Primary Care Provider, Attending P rovider Active Team Status: Active Member Role Status Dates Dr. Ramone Smiley MD Primary Care Provider Active Dr. Queta Cortez MD Emergency Provider Active Dr. Nestor Bartlett , Admit Provider, Attending Provider Active Team Status: Active Member Role Status Dates Dr. Ramone Smiley MD Primary Care Provider Active Dr. Queta Cortez MD Emergency Provider Active Dr. Nestor Bartlett DO Admit Provider, Other Pro vider Active Dr. Gabriel Byrd MD Other Provider Active Dr. Sunny Bell MD Attending Provider, Other Provi bradley Active Team Status: Inactive Member Role Status Dates Dr. Ramone Smiley MD Primary Care Provider Active Dr. Queta Cortez MD Emergency Provider Active Dr. Nestor Bartlett DO Admit Provider, Other Pro vider Active Dr. Gabriel Byrd MD Other Provider Active Dr. Sunny Bell MD Attending Provider Active Team Status: Active Member Role Status Dates Dr. Ramone Smiley MD Primary Care Provider Active Dr. Robert Allison DO Emergency Provider Active Dr. Heydi Amaya MD Admit Provider, Attending Provid er Active Team Status: Inactive Member Role Status Dates Dr. Ramone Smiley MD Primary Care Provider Active Start: September 27, 2024 End: September 27, 2024 Dr. Ramone Smiley MD Attending Provider Active St art: September 27, 2024 End: September 27, 2024 Dr. Ramone Smiley MD Referring Provider Active St art: September 27, 2024 End: September 27, 2024 Team Status: Inactive Member Role Status Dates Dr. Ramone Smiley MD Primary Care Provider Active Start: January 07, 2025 End: January 07, 2025 Dr. Ethan Darnell DO Emergency Provider Active Start : January 07, 2025 End: January 07, 2025 Team Status: Inactive Member Role Status Dates Dr. Ramone Smiley MD Primary Care Provider Active Start: January 15, 2025 End: January 15, 2025 Dr. Jeevan Yoder DO Emergency Provider Active Start: January 15, 2025 End: January 15, 2025 Team Status: Active Member Role Status Dates Dr. Ramone Smiley MD Primary Care Provider Active Start: January 19, 2025 Dr. Ramone Smiley MD Attending Provider Active St art: January 19, 2025 Dr. Ramone Smiley MD Referring Provider Active St art: January 19, 2025 Reason for Visit (unrecogniz ed section and [...] BE BASED ON THE PRIMARY CLINICAL RECORDS. [facility] [employer] [facility]. provides no warranty or guarantee of the accuracy or completeness of information in this document.
[2025-02-04 08:09] LABS: Pro- Brain NATRIURETIC PEPTIDE 6247 pg/mL (<=1800); Troponin T High Sensitivity 139 ng/L (<=14)
--- NOTE | 2025-02-04 08:20 | CT_ITS ---
PROCEDURE: CTA CHEST W/WO CONTRAST 02/04/2025 REASON FOR EXAM: RESPIRATORY FAILURE, [place] TECHNIQUE: CTA axial imaging of the chest with intravenous contrast. Multiplanar and multisequence images were obtained. PATIENT PREPARATION: Per protocol CONTRAST: Omnipaque 350 VOLUME: 100 mL One or more dose reduction techniques were used (e.g., Automated exposure control, adjustment of the mA and/or kV according to patient size, use of iterative reconstruction technique). COMPARISON: Chest radiograph 02/04/2025 FINDINGS: Examination is limited by motion. Hardware: None Lymph nodes: No suspicious mediastinal, axillary, supraclavicular or hilar adenopathy. Heart: Mild cardiomegaly. Moderate coronary artery calcifications. Thoracic Aorta: No thoracic aortic aneurysm or dissection. Mild-moderate atherosclerotic calcifications. Pulmonary Vessels: No large central pulmonary emboli are identified. Contrast timing is suboptimal for evaluation of more distal branches. Most Proximal Level of Embolus (if embolus present): None Lungs and Airways: Central airways are patent without endobronchial lesions. Patchy opacities in the lung base, compatible with atelectasis. No suspicious pulmonary nodules, within the limits of motion. Reticulonodular opacities in the anterior left upper lobe, likely secondary to prior radiation treatment changes. Mild emphysema. No pneumothorax. No pleural effusion. Mediastinum: Asymmetrically enlarged right thyroid lobe, with multiple low- attenuation nodules. The largest on the right measures 15 mm. Small hiatal hernia. The esophagus is mildly dilated. Upper Abdomen: Unremarkable. Bones: Degenerative changes of the thoracic spine. Soft tissue/chest wall: 23 x 11 mm fluid attenuation lesion left breast (series 2, image 147), with surrounding architectural distortion and surgical clips, likely postoperative seroma from prior biopsy/lumpectomy. Left breast wall thickening, likely treatment related. CT/CTA Chest W/WO Contrast IMPRESSION: 1. No evidence of pulmonary embolism or acute findings in the thorax. 2. Bibasilar atelectasis. 3. Other findings as detailed above. Reading Location: [facility]
[2025-02-04 09:16] LABS: Troponin T High Sens 2 HR 133 ng/L (<=14)
[2025-02-04 11:26] LABS: Troponin T High Sens 4 HR 139 ng/L (<=14)
--- OUTSIDE RECORDS SUMMARY | 2025-02-04 12:00 | XMS RPT_ITS | CCD ---
Author Organization [facility] Care Team Providers Care Cotton Washer Name Role Phone Zuleika Heaton Unavailable Unavailable LEE ALAMO Unavailable Unavailable PROVIDER, UNKNOWN Unavailable Unavailable Zuleika Heaton Unavailable Unavailable Dr. Ramone Smiley Primary Care Provider [phone] Dr. Ramone Smiley Referring Provider Dr. Michael Carmen Attending Provider Juan Carlos JEAN, MIRANDA-Marianna Bullock Attending Provider Dr. Angela Moncada Attending Provider Baljit LEARY, Rmaone Noe Primary Care Provider [phone] Dr. Ramone Smiley Primary Care Provider [phone] Ramone Smiley Referring Provider DAVY Blackmon Attending Provider Ramone Smiley MD Primary Care Provider Dr. Ramone Smiley Primary Care Provider Dr. Ramone Smiley Referring Provider [phone] DAVY Peck Attending Provider Dr. Robert Allison Emergency Provider Dr. Heydi Amaya Admit Provider Dr. Heydi Amaya Other Provider Dr. Nestor Bartlett Attending Provider Dr. Nestor Bartlett Other Provider [phone] Dr. Ramone Veras Other Provider Dr. Sandeep Denson Attending Provider Unavailable Dr. Sandeep Denson Other Provider Unavailable Dr. Ramone Smiley Primary Care Provider [phone] Queta Cortez Emergency Provider Dhruv, Dr. Baez Admit Provider Dr. Nestor Bartlett Other Provider Dr. Gabriel Byrd Other [...] LEARY, Dr. Melba Gayle Other Provider [phone] Herrera LEARY, Dr. Hudson Attending Provider Baljit LEARY, Dr. Pack Primary Care Provider Baljit LEARY, Dr. Pack Attending Provider Baljit LEARY, Dr. Pack Referring Provider Dr. [...] Unavailable Smiley, Ramone Primary Care Unavailable Jg Bryan Attending Unavailable Smiley, Ramone Referring Unavailable Smiley, Ramone Primary Care Unavailable Smiley, Ramone Attending Unavailable Smiley, Ramone Referring Unavailable Smiley, Ramone Attending Unavailable Smiley, Ramone Primary Care Unavailable Nagajothi, Nagapradee Attending Ramone Edge Primary [facility] Unavailable Allergies Allergy Classification Reported Allergen(s) Allergy Type Date of Onset Reaction(s) Facility (20 sources) Adhesive Tape; Translations: [ADHESIVE TAPE] allergy to substance 5 NEEDS FOLLOW-UP [facility] Work Phone: [phone] Comment on above: CLOTH TAPE (20 sources) amoxicillin; Translations: [amoxicillin] drug allergy 5 yeast infection [facility] Work Phone: (2 sources) cephalexin drug allergy 5 [facility] Work Phone: (2 sources) clopidogrel drug allergy 5 [facility] Work Phone: (20 sources) Cephalexin; Translations: [cephalexin monohydrate] Drug Allergy 2 [facility] (20 sources) clopidogrel; Translations: [clopidogrel bisulfate] Drug Allergy 1 Hives [facility] Work Phone: (2 sources) cloth tap Allergy to substance 2 Other [facility] Work Phone: (5 sources) Cephalexin Drug Allergy 5 [facility] Work Phone: (5 sources) tape [Other] Propensity to adverse reactions 5 [facility] Medications Current Medications Medication Drug Class(es) Dates [...] AERS As needed - 90mcg/inh ALBUTEROL SULFATE [id number] Se Good MD Start: 08-29-2015 VENTOLIN HFA 1 08 (90 Base) MCG/ACT AERS As needed - 90mcg/inh ALBUTEROL SULFATE [id number] Se Good MD Start: 12-25-2014 End: 01-12-2018 [...] TABS One tablet by mouth daily ASPIRIN 51559236021 Kadie Álvarez RN Start: 08-23-2015 take 1 tablet by martin once daily ASPIRIN 81 MG TABS One tablet by mouth daily ASPIRIN 57785234883 Kadie Álvarez RN take [address] [facility] once daily aspirin, enteric coated (ASPIRIN, ENTERIC [...] in each nostril twice daily AZELASTINE HCL 60414997005 Kadie Álvarez RN Start: 08-23-2015 take 1-2 spray(s) na deepali route twice daily ASTEPRO 0.15 % SOLN 1-2 sprays in each nostril twice daily AZELASTINE HCL 30331410734 Kadie Álvarez RN take 1-2 spray(s) na [...] MCG/ACT AERO 2 puffs daily BUDESONIDE-FORMOTEROL FUMARATE 46906936415 Kadie Álvarez RN Start: 08-23-2015 SYMBICORT 160- 4.5 MCG/ACT AERO 2 puffs daily BUDESONIDE-FORMOTEROL FUMARATE 21371676192 Kadie Álvarez RN take 1 puff(s) by in halation twice daily budesonide-formoterol (SYMBICORT) 160-4.5 mcg/actuation inhaler Indications: Other iron deficiency anemia Inhale 1 Puff as instructed twice daily. 0 Active Comment on above: Inhale 1 Puff as ins tructed twice daily. Ivjkvsoock-Zvxzalcu-Zwcbsleq ol (5 sources) Corticosteroid, beta2-Adrenergic Agonist Start: [...] martin th once daily DILT-XR 180 MG [id number] One tablet by mouth daily DILTIAZEM HCL 86803613694 Se Good MD Start: 08-29-2015 take 1 tablet by martin th once daily DILT-XR 180 MG [id number] One tablet by mouth daily DILTIAZEM HCL 48356568636 Se Good MD Comment on above: Take [...] on above: Take 2 tablets by mo [facility] twice daily. pravastatin sodium 20 mg ora [...] POWD 3 times daily with water PSYLLIUM [id number] Kadie Álvarez RN Roflumilast (20 sources) Phosphodiesterase [...] EVERY WEEK January 15, 2025 12:00am Vitamin E-Nqiuhtozxtde-Uvwteb l (15 sources) Start: 0 take 250 mg by mouth once daily Vitamin T-Duuyprjtdypu-Uuons al Active 250 MG PO DAILY December 02, 2019 11:46am Start: 12-02-2019 End: 07-18-2023 take 250 mg by mouth once daily Vitamin H-Tglgqqiqodfm-Nsbkmca Discontinued 250 MG PO DAILY December 02, 2019 12:00am July 19, 2023 12:34am Start: 12-02-2019 End: 07-18-2023 take 250 mg by mouth once daily Vitamin G-Rrsxkuaguxjp-Bdewosn Discontinued 250 MG PO DAILY December 01, 2019 11:00pm July 18, 2023 11:34pm Start: 12-02-2019 take 250 mg by mouth once daily Vitamin E-Ijhoqpknftik-Xhqqmlc Active 25 0 MG PO DAILY December 01, 2019 11:00pm Start: 12-02-2019 take 250 mg by mouth once daily Vitamin S-Ihllbfudmxlr-Fgfibpx Active 25 0 MG PO DAILY December [...] One tablet by mouth daily AMLODIPINE BESYLATE 02745150678 Se Good MD apixaban 5 mg oral [...] lower legs 1-2 times daily BETAMETHASONE DIPROPIONATE [id number] Kadie Álvarez RN Start: 08-23-2015 BETAMETHASONE DIPROPIONATE 0.05 % LOTN apply to lower legs 1-2 times daily BETAMETHASONE DIPROPIONATE 75516541691 Kadie Álvarez RN bisacodyl 10 mg rectal suppo sitory (13 sources) Stimulant Laxative Start: 12-30-2023 End: 01-15-2024 Start: 08-23-2015 take 1 tablet by martin once daily as needed BISACODYL EC 5 MG TBEC One tablet by mouth daily as needed BISACODYL 25457652275 Kadie Álvarez RN calcium carbonate (2 sources) Start: 08-23-2015 take 1 tablet by mouth once daily CALCIUM 600 600 MG TABS One tablet by mouth daily CALCIUM CARBONATE 41103040725 Kadie Álvarez RN Calcium Carbonate / vitamin [...] 4 MG TABS As needed CHLORPHENIRAMINE MALEATE 70315562714 Se Good MD cholecalciferol 0.025 mg oral [...] by mouth daily COD LIVER OIL CAPS 34165396027 Kaide Álvarez RN take 1 capsule by mouth once neftaly ly Cod Liver Oil cap Indications: Other iron deficiency anemia Take 1 capsule by mouth once daily. 0 Active Comment on above: Take 1 capsule by mo [facility] once daily. Cod Liver Oil capsule (4 [...] 2:52pm docusate sodium 50 mg / sennosides, alf 8.6 mg oral tablet (20 sources) Start: [...] Start: 08-13-2023 take 1 capsule by mo [facility] once daily Fiber Active 1 CAP PO DAILY August 13, 2023 1:00am Start: 08-13-2023 take 1 capsule by mo [facility] once daily Fiber Active 1 CAP PO [...] units SQ daily at bedtime INSULIN DETEMIR [id number] Mariana Finley RN Start: 08-23-2015 inject 28 [IU] by avila bcutaneous injection once daily LEVEMIR 100 UNIT/ML SOLN 28 units SQ daily INSULIN DETEMIR [id number] Kadie Álvarez RN Start: 08-23-2015 take 15 [IU] by subc utaneous injection once daily at bedtime LEVEMIR 100 UNIT/ML SOLN 15 units SQ daily at bedtime INSULIN DETEMIR 31287268689 Mariana Finley RN Start: 08-23-2015 take 28 [IU] by subc utaneous injection once daily LEVEMIR 100 UNIT/ML SOLN 28 units SQ daily INSULIN DETEMIR 51042831731 Kadie Álvarez RN inject 52 [IU] by [...] CAPS One tablet by mouth daily LINACLOTIDE 33561622180 Kadie Álvarez RN Start: 08-23-2015 take 1 tablet by martin th once daily LINZESS 290 MCG CAPS One tablet by mouth daily LINACLOTIDE 64492251286 Kadie Álvarez RN lisinopril 40 mg oral [...] One tablet by mouth daily MAGNESIUM CAPS 47235378517 Kadie Álvarez RN metFORMIN hydrochloride 1000 mg oral tablet (2 sources) Biguanide take 1 tablet by mouth twice daily GLUCOPHAGE 1000 MG TABS One tablet by mouth twice daily METFORMIN HCL 65886179933 Julita Chau EDUCATIONAL ADVISER metFORMIN hydrochloride 1000 mg / SITagliptin 50 mg oral tablet (4 sources) Biguanide, Dipeptidyl Peptidase 4 Inhibitor Start: 5 End: 5 take 1 tablet by mouth twice daily JANUMET 50-1000 MG TABS One tablet by mouth twice daily SITAGLIPTIN-METFORMI N HCL 06196752655 Se Good MD Start: 08-23-2015 End: 08-29-2015 take 1 tablet by mouth twice daily JANUMET 50-1000 MG TABS One tablet by mouth twice daily SITAGLIPTIN-METFORMIN HCL 46380986609 Se Good MD Start: 08-23-2015 take 1 tablet by martin th twice daily JANUMET 50-1000 MG TABS One tablet by mouth twice daily SITAGLIPTIN-METFORMIN HCL 08891962582 Kadie Álvarez RN miSOPROStol 0.2 mg oral [...] three times daily as needed PROMETHAZINE HCL 31691644944 Kadie Álvarez RN PSYLLIUM [place] MISC [...] One tablet by mouth daily RANITIDINE HCL 64633099686 Kadie Álvarez RN Comment on above: Take 300 mg by mouth once daily. sennosides, alf 8.6 mg oral tablet (5 sources) take 1 tablet by mouth twice daily senna (SENNA LAXATIVE) 8.6 mg tab Take 8.6 mg by mouth twice daily. 0 Active Comment on above: Take 8.6 mg by mouth twice daily. sodium chloride 0.111 meq/ml nasal spray (5 sources) sodium chloride (SALINE MIST) 0.65 % nasal spray Use 1 [place] in the nose as needed. 0 Active Comment on above: Use 1 [place] in the n ose as needed. sucralfate [...] End: 10-18-2020 Start: 01-24-2020 End: 10-18-2020 Tiotropium [place] (Spiriva With Handihaler) 18 mcg capsule, w/inhalation device Discontinued 1 NMA INHALATION NEEDED as needed for Sob &/Or Wheezing January 24, 2020 12:00am October 18, 2020 9:28am puncture 1 cap using device; one dose = 2 inhalations Start: 01-24-2020 End: 10-18-2020 Tiotropium [place] (Spiriva With Handihaler) 18 mcg capsule, w/inhalation device Discontinued 1 PUFF INHALATION NEEDED January 24, 2020 12:00am October 18, 2020 9:28am puncture 1 cap using device; one dose = 2 inhalations Start: 08-23-2015 SPIRIVA HANDIH ALER 18 MCG CAPS as needed TIOTROPIUM BROMIDE MONOHYDRATE 05573943767 Kadie Álvarez RN Start: 08-23-2015 SPIRIVA HANDIH ALER 18 MCG CAPS as needed TIOTROPIUM BROMIDE MONOHYDRATE 24824710459 Kadie Álvarez RN Start: 12-25-2014 End: 01-12-2018 [...] sources) Corticosteroid Start: 01-07-2025 End: 01-15-2025 Vitamin J-Leoozltpbtlh-Rtkhbel 500 MG tablet,chewable (2 sources) Start: 12-02-2019 End: 07-18-2023 Vitamin X-Ijoihuynhtex-Oyxkvsy 500 MG tablet,chewable Discontinued 250 mg PO [...] Coronary arteriosclerosis; Translations: [Atherosclerotic heart disease of [place] coronary artery without angina pectoris] Onset: 5 [...] Respiratory failure; insufficiency; arrest (adult) (13 sources) Qojja-yo-vfbjpur respiratory failure; Translations: [Acute respiratory failure with [...] Visit Reporton Cardiology Visit Report Normal [facility] Basic Metabolic Profile (BMP )on 01-30-2025 BUN Normal 4-19 [facility] Comment on above: Result Comment: Canc elled via OM: Order cancelled - Patient discharged Performed By: #### L 500.2500, L100.0100 ####[facility] [address] [place], [address] BUN/CRE Normal 10-20 [facility] Comment on above: Result Comment: Canc elled via OM: Order cancelled - Patient discharged Performed By: #### L 500.2500, L100.0100 ####[facility] [address] [place], [address] Calcium Normal 7.6-11.0 [facility] Comment on above: Result Comment: Canc elled via OM: Order cancelled - Patient discharged Performed By: #### L 500.2500, L100.0100 ####[facility] [address] [place], [address] CL Normal 98-108 [facility] Comment on above: Result Comment: Canc elled via OM: Order cancelled - Patient discharged Performed By: #### L 500.2500, L100.0100 ####[facility] [address] [place], [address] CO2 Normal 21.0-32.0 [facility] Comment on above: Result Comment: Canc elled via OM: Order cancelled - Patient discharged Performed By: #### L 500.2500, L100.0100 ####[facility] [address] [place], [address] CREAT,SERUM Normal 0.70-1.20 [facility] Comment on above: Result Comment: Canc elled via OM: Order cancelled - Patient discharged Performed By: #### L 500.2500, L100.0100 ####[facility] [address] [place], [address] eGFR Normal >60 [facility] Comment on above: Result Comment: Canc elled via OM: Order cancelled - Patient discharged Performed By: #### L 500.2500, L100.0100 ####[facility] [address] [place], [address] GAP Normal 5-15 [facility] Comment on above: Result Comment: Canc elled via OM: Order cancelled - Patient discharged Performed By: #### L 500.2500, L100.0100 ####[facility] [address] [place], [address] GLU Normal 70-99 [facility] Comment on above: Result Comment: Canc elled via OM: Order cancelled - Patient discharged Performed By: #### L 500.2500, L100.0100 ####[facility] [address] [place], [address] Potassium Normal 3.3-5.1 [facility] Comment on above: Result Comment: Canc elled via OM: Order cancelled - Patient discharged Performed By: #### L 500.2500, L100.0100 ####[facility] [address] [place], [address] Basic Metabolic Profile (BMP) Normal 133-145 [facility] Comment on above: Result Comment: Canc elled via OM: Order cancelled - Patient discharged Performed By: #### L 500.2500, L100.0100 ####[facility] [address] [place], [address] CBC W/Diff, Automatedon 06-0 2-2024 Absolute Neut Normal 2.0-7.7 [facility] Comment on above: Result Comment: Canc elled via OM: Order cancelled - Patient discharged Performed By: #### L 500.2500, L100.0100 ####[facility] [address] [place], [address] HCT Normal 37-47 [facility] Comment on above: Result Comment: Canc elled via OM: Order cancelled - Patient discharged Performed By: #### L 500.2500, L100.0100 ####[facility] [address] [place], [address] HGB Normal 12.0-15.0 [facility] Comment on above: Result Comment: Canc elled via OM: Order cancelled - Patient discharged Performed By: #### L 500.2500, L100.0100 ####[facility] [address] [place], [address] MCH Normal 27.0-32.0 [facility] Comment on above: Result Comment: Canc elled via OM: Order cancelled - Patient discharged Performed By: #### L 500.2500, L100.0100 ####[facility] [address] [place], [address] MCHC Normal 32-36 [facility] Comment on above: Result Comment: Canc elled via OM: Order cancelled - Patient discharged Performed By: #### L 500.2500, L100.0100 ####[facility] [address] [place], [address] MCV Normal 81-99 [facility] Comment on above: Result Comment: Canc elled via OM: Order cancelled - Patient discharged Performed By: #### L 500.2500, L100.0100 ####[facility] [address] [place], [address] NEUT% Normal 47-70 [facility] Comment on above: Result Comment: Canc elled via OM: Order cancelled - Patient discharged Performed By: #### L 500.2500, L100.0100 ####[facility] [address] [place], [address] PLT Normal 150-450 [facility] Comment on above: Result Comment: Canc elled via OM: Order cancelled - Patient discharged Performed By: #### L 500.2500, L100.0100 ####[facility] [address] [place], [address] RBC Normal 4.2-5.4 [facility] Comment on above: Result Comment: Canc elled via OM: Order cancelled - Patient discharged Performed By: #### L 500.2500, L100.0100 ####[facility] [address] [place], [address] RDW CV Normal 11.6-14.6 [facility] Comment on above: Result Comment: Canc elled via OM: Order cancelled - Patient discharged Performed By: #### L 500.2500, L100.0100 ####[facility] [address] [place], [address] RDW SD Normal 35.1-43.9 [facility] Comment on above: Result Comment: Canc elled via OM: Order cancelled - Patient discharged Performed By: #### L 500.2500, L100.0100 ####[facility] [address] [place], [address] WBC Normal 4.4-11.0 [facility] Comment on above: Result Comment: Canc elled via OM: Order cancelled - Patient discharged Performed By: #### L 500.2500, L100.0100 ####[facility] [address] [place], [address] Basic Metabolic Profile (BMP )on 01-29-2025 BUN Normal 4-19 [facility] Comment on above: Result Comment: Canc elled via OM: Order cancelled - Patient discharged Performed By: #### L 100.0100, L500.2500 ####[facility] [address] [place], [address] BUN/CRE Normal 10-20 [facility] Comment on above: Result Comment: Canc elled via OM: Order cancelled - Patient discharged Performed By: #### L 100.0100, L500.2500 ####[facility] [address] [place], [address] Calcium Normal 7.6-11.0 [facility] Comment on above: Result Comment: Canc elled via OM: Order cancelled - Patient discharged Performed By: #### L 100.0100, L500.2500 ####[facility] [address] [place], [address] CL Normal 98-108 [facility] Comment on above: Result Comment: Canc elled via OM: Order cancelled - Patient discharged Performed By: #### L 100.0100, L500.2500 ####[facility] [address] [place], [address] CO2 Normal 21.0-32.0 [facility] Comment on above: Result Comment: Canc elled via OM: Order cancelled - Patient discharged Performed By: #### L 100.0100, L500.2500 ####[facility] [address] [place], [address] CREAT,SERUM Normal 0.70-1.20 [facility] Comment on above: Result Comment: Canc elled via OM: Order cancelled - Patient discharged Performed By: #### L 100.0100, L500.2500 ####[facility] [address] [place], [address] eGFR Normal >60 [facility] Comment on above: Result Comment: Canc elled via OM: Order cancelled - Patient discharged Performed By: #### L 100.0100, L500.2500 ####[facility] [address] [place], [address] GAP Normal 5-15 [facility] Comment on above: Result Comment: Canc elled via OM: Order cancelled - Patient discharged Performed By: #### L 100.0100, L500.2500 ####[facility] [address] [place], [address] GLU Normal 70-99 [facility] Comment on above: Result Comment: Canc elled via OM: Order cancelled - Patient discharged Performed By: #### L 100.0100, L500.2500 ####[facility] [address] [place], [address] Potassium Normal 3.3-5.1 [facility] Comment on above: Result Comment: Canc elled via OM: Order cancelled - Patient discharged Performed By: #### L 100.0100, L500.2500 ####[facility] [address] [place], [address] Basic Metabolic Profile (BMP) Normal 133-145 [facility] Comment on above: Result Comment: Canc elled via OM: Order cancelled - Patient discharged Performed By: #### L 100.0100, L500.2500 ####[facility] [address] [place], [address] CBC W/Diff, Automatedon 06-0 -2024 Absolute Neut Normal 2.0-7.7 [facility] Comment on above: Result Comment: Canc elled via OM: Order cancelled - Patient discharged Performed By: #### L 100.0100, L500.2500 ####[facility] [address] [place], [address] HCT Normal 37-47 [facility] Comment on above: Result Comment: Canc elled via OM: Order cancelled - Patient discharged Performed By: #### L 100.0100, L500.2500 ####[facility] [address] [place], [address] HGB Normal 12.0-15.0 [facility] Comment on above: Result Comment: Canc elled via OM: Order cancelled - Patient discharged Performed By: #### L 100.0100, L500.2500 ####[facility] [address] [place], [address] MCH Normal 27.0-32.0 [facility] Comment on above: Result Comment: Canc elled via OM: Order cancelled - Patient discharged Performed By: #### L 100.0100, L500.2500 ####[facility] [address] [place], [address] MCHC Normal 32-36 [facility] Comment on above: Result Comment: Canc elled via OM: Order cancelled - Patient discharged Performed By: #### L 100.0100, L500.2500 ####[facility] [address] [place], [address] MCV Normal 81-99 [facility] Comment on above: Result Comment: Canc elled via OM: Order cancelled - Patient discharged Performed By: #### L 100.0100, L500.2500 ####[facility] [address] [place], [address] NEUT% Normal 47-70 [facility] Comment on above: Result Comment: Canc elled via OM: Order cancelled - Patient discharged Performed By: #### L 100.0100, L500.2500 ####[facility] [address] [place], [address] PLT Normal 150-450 [facility] Comment on above: Result Comment: Canc elled via OM: Order cancelled - Patient discharged Performed By: #### L 100.0100, L500.2500 ####[facility] [address] [place], [address] RBC Normal 4.2-5.4 [facility] Comment on above: Result Comment: Canc elled via OM: Order cancelled - Patient discharged Performed By: #### L 100.0100, L500.2500 ####[facility] [address] [place], [address] RDW CV Normal 11.6-14.6 [facility] Comment on above: Result Comment: Canc elled via OM: Order cancelled - Patient discharged Performed By: #### L 100.0100, L500.2500 ####[facility] [address] [place], [address] RDW SD Normal 35.1-43.9 [facility] Comment on above: Result Comment: Canc elled via OM: Order cancelled - Patient discharged Performed By: #### L 100.0100, L500.2500 ####[facility] [address] [place], [address] WBC Normal 4.4-11.0 [facility] Comment on above: Result Comment: Canc elled via OM: Order cancelled - Patient discharged Performed By: #### L 100.0100, L500.2500 ####[facility] [address] [place], [address] Basic Metabolic Profile (BMP )on 01-28-2025 BUN Normal 4-19 [facility] Comment on above: Result Comment: Canc elled via OM: Order cancelled - Patient discharged Performed By: #### L 500.2500, L100.0100 ####[facility] [address] [place], [address] BUN/CRE Normal 10-20 [facility] [facility] Comment on above: Result Comment: Canc elled via OM: Order cancelled - Patient discharged Performed By: #### L 500.2500, L100.0100 ####[facility] [address] [place], [address] Calcium Normal 7.6-11.0 [facility] Comment on above: Result Comment: Canc elled via OM: Order cancelled - Patient discharged Performed By: #### L 500.2500, L100.0100 ####[facility] [address] [place], [address] CL Normal 98-108 [facility] Comment on above: Result Comment: Canc elled via OM: Order cancelled - Patient discharged Performed By: #### L 500.2500, L100.0100 ####[facility] [address] [place], [address] CO2 Normal 21.0-32.0 [facility] Comment on above: Result Comment: Canc elled via OM: Order cancelled - Patient discharged Performed By: #### L 500.2500, L100.0100 ####[facility] [address] [place], [address] CREAT,SERUM Normal 0.70-1.20 [facility] Comment on above: Result Comment: Canc elled via OM: Order cancelled - Patient discharged Performed By: #### L 500.2500, L100.0100 ####[facility] [address] [place], [address] eGFR Normal >60 [facility] Comment on above: Result Comment: Canc elled via OM: Order cancelled - Patient discharged Performed By: #### L 500.2500, L100.0100 ####[facility] [address] [place], [address] GAP Normal 5-15 [facility] Comment on above: Result Comment: Canc elled via OM: Order cancelled - Patient discharged Performed By: #### L 500.2500, L100.0100 ####[facility] [address] [place], [address] GLU Normal 70-99 [facility] Comment on above: Result Comment: Canc elled via OM: Order cancelled - Patient discharged Performed By: #### L 500.2500, L100.0100 ####[facility] [address] [place], [address] Potassium Normal 3.3-5.1 [facility] Comment on above: Result Comment: Canc elled via OM: Order cancelled - Patient discharged Performed By: #### L 500.2500, L100.0100 ####[facility] [address] [place], [address] Basic Metabolic Profile (BMP) Normal 133-145 [facility] Comment on above: Result Comment: Canc elled via OM: Order cancelled - Patient discharged Performed By: #### L 500.2500, L100.0100 ####[facility] [address] [place], [address] CBC W/Diff, Automatedon 05-3 Absolute Neut Normal 2.0-7.7 [facility] Comment on above: Result Comment: Canc elled via OM: Order cancelled - Patient discharged Performed By: #### L 500.2500, L100.0100 ####[facility] [address] [place], [address] HCT Normal 37-47 [facility] Comment on above: Result Comment: Canc elled via OM: Order cancelled - Patient discharged Performed By: #### L 500.2500, L100.0100 ####[facility] [address] [place], [address] HGB Normal 12.0-15.0 [facility] Comment on above: Result Comment: Canc elled via OM: Order cancelled - Patient discharged Performed By: #### L 500.2500, L100.0100 ####[facility] [address] [place], [address] MCH Normal 27.0-32.0 [facility] Comment on above: Result Comment: Canc elled via OM: Order cancelled - Patient discharged Performed By: #### L 500.2500, L100.0100 ####[facility] [address] [place], [address] MCHC Normal 32-36 [facility] Comment on above: Result Comment: Canc elled via OM: Order cancelled - Patient discharged Performed By: #### L 500.2500, L100.0100 ####[facility] [address] [place], [address] MCV Normal 81-99 [facility] Comment on above: Result Comment: Canc elled via OM: Order cancelled - Patient discharged Performed By: #### L 500.2500, L100.0100 ####[facility] [address] [place], [address] NEUT% Normal 47-70 [facility] Comment on above: Result Comment: Canc elled via OM: Order cancelled - Patient discharged Performed By: #### L 500.2500, L100.0100 ####[facility] [address] [place], [address] PLT Normal 150-450 [facility] Comment on above: Result Comment: Canc elled via OM: Order cancelled - Patient discharged Performed By: #### L 500.2500, L100.0100 ####[facility] [address] [place], [address] RBC Normal 4.2-5.4 [facility] Comment on above: Result Comment: Canc elled via OM: Order cancelled - Patient discharged Performed By: #### L 500.2500, L100.0100 ####[facility] [address] [place], [address] RDW CV Normal 11.6-14.6 [facility] Comment on above: Result Comment: Canc elled via OM: Order cancelled - Patient discharged Performed By: #### L 500.2500, L100.0100 ####[facility] [address] [place], [address] RDW SD Normal 35.1-43.9 [facility] Comment on above: Result Comment: Canc elled via OM: Order cancelled - Patient discharged Performed By: #### L 500.2500, L100.0100 ####[facility] [address] [place], [address] WBC Normal 4.4-11.0 [facility] Comment on above: Result Comment: Canc elled via OM: Order cancelled - Patient discharged Performed By: #### L 500.2500, L100.0100 ####[facility] [address] [place], [address] Basic Metabolic Profile (BMP )on 01-27-2025 BUN Normal 4-19 [facility] Comment on above: Result Comment: Canc elled via OM: Order cancelled - Patient discharged Performed By: #### L 500.2500, L100.0100 ####[facility] [address] [place], [address] BUN/CRE Normal 10-20 [facility] Comment on above: Result Comment: Canc elled via OM: Order cancelled - Patient discharged Performed By: #### L 500.2500, L100.0100 ####[facility] [address] [place], [address] Calcium Normal 7.6-11.0 [facility] Comment on above: Result Comment: Canc elled via OM: Order cancelled - Patient discharged Performed By: #### L 500.2500, L100.0100 ####[facility] [address] [place], [address] CL Normal 98-108 [facility] Comment on above: Result Comment: Canc elled via OM: Order cancelled - Patient discharged Performed By: #### L 500.2500, L100.0100 ####[facility] [address] [place], [address] CO2 Normal 21.0-32.0 [facility] Comment on above: Result Comment: Canc elled via OM: Order cancelled - Patient discharged Performed By: #### L 500.2500, L100.0100 ####[facility] [address] [place], [address] CREAT,SERUM Normal 0.70-1.20 [facility] Comment on above: Result Comment: Canc elled via OM: Order cancelled - Patient discharged Performed By: #### L 500.2500, L100.0100 ####[facility] [address] [place], [address] eGFR Normal >60 [facility] Comment on above: Result Comment: Canc elled via OM: Order cancelled - Patient discharged Performed By: #### L 500.2500, L100.0100 ####[facility] [address] [place], [address] GAP Normal 5-15 [facility] Comment on above: Result Comment: Canc elled via OM: Order cancelled - Patient discharged Performed By: #### L 500.2500, L100.0100 ####[facility] [address] [place], [address] GLU Normal 70-99 [facility] Comment on above: Result Comment: Canc elled via OM: Order cancelled - Patient discharged Performed By: #### L 500.2500, L100.0100 ####[facility] [address] [place], [address] Potassium Normal 3.3-5.1 [facility] Comment on above: Result Comment: Canc elled via OM: Order cancelled - Patient discharged Performed By: #### L 500.2500, L100.0100 ####[facility] [address] [place], [address] Basic Metabolic Profile (BMP) Normal 133-145 [facility] Comment on above: Result Comment: Canc elled via OM: Order cancelled - Patient discharged Performed By: #### L 500.2500, L100.0100 ####[facility] [address] [place], [address] CBC W/Diff, Automatedon 05-3 0-2024 Absolute Neut Normal 2.0-7.7 [facility] Comment on above: Result Comment: Canc elled via OM: Order cancelled - Patient discharged Performed By: #### L 500.2500, L100.0100 ####[facility] [address] [place], [address] HCT Normal 37-47 [facility] Comment on above: Result Comment: Canc elled via OM: Order cancelled - Patient discharged Performed By: #### L 500.2500, L100.0100 ####[facility] [address] [place], [address] HGB Normal 12.0-15.0 [facility] Comment on above: Result Comment: Canc elled via OM: Order cancelled - Patient discharged Performed By: #### L 500.2500, L100.0100 ####[facility] [address] [place], [address] MCH Normal 27.0-32.0 [facility] Comment on above: Result Comment: Canc elled via OM: Order cancelled - Patient discharged Performed By: #### L 500.2500, L100.0100 ####[facility] [address] [place], [address] MCHC Normal 32-36 [facility] Comment on above: Result Comment: Canc elled via OM: Order cancelled - Patient discharged Performed By: #### L 500.2500, L100.0100 ####[facility] [address] [place], [address] MCV Normal 81-99 [facility] Comment on above: Result Comment: Canc elled via OM: Order cancelled - Patient discharged Performed By: #### L 500.2500, L100.0100 ####[facility] [address] [place], [address] NEUT% Normal 47-70 [facility] Comment on above: Result Comment: Canc elled via OM: Order cancelled - Patient discharged Performed By: #### L 500.2500, L100.0100 ####[facility] [address] [place], [address] PLT Normal 150-450 [facility] Comment on above: Result Comment: Canc elled via OM: Order cancelled - Patient discharged Performed By: #### L 500.2500, L100.0100 ####[facility] [address] [place], [address] RBC Normal 4.2-5.4 [facility] Comment on above: Result Comment: Canc elled via OM: Order cancelled - Patient discharged Performed By: #### L 500.2500, L100.0100 ####[facility] [address] [place], [address] RDW CV Normal 11.6-14.6 [facility] Comment on above: Result Comment: Canc elled via OM: Order cancelled - Patient discharged Performed By: #### L 500.2500, L100.0100 ####[facility] [address] [place], [address] RDW SD Normal 35.1-43.9 [facility] Comment on above: Result Comment: Canc elled via OM: Order cancelled - Patient discharged Performed By: #### L 500.2500, L100.0100 ####[facility] [address] [place], [address] WBC Normal 4.4-11.0 [facility] Comment on above: Result Comment: Canc elled via OM: Order cancelled - Patient discharged Performed By: #### L 500.2500, L100.0100 ####[facility] [address] [place], [address] Absolute lymphocyte countOrd ered By: Jg Bryan on 01-26-2025 Lymphocytes Auto (Unsp spec) [#/Vol] 2.24 10*3/uL 0.83-4.51 [facility] Anion gap in Serum or Plasma Ordered By: Jg Bryan on 01-26-2025 Anion gap [Moles/Vol] 10 mmol/L 5- [facility] Automated lymphocyte count a s percentage of total leukocytesOrdered By: Jg Bryan on 01-26-2025 Lymphocytes/100 WBC Auto (Unsp spec) 25.1 % - [facility] BUN/creatinine ratioOrdered By: Jg Bryan on 01-26-2025 Urea nitrogen/Creatinine [Mass ratio] 30.2 mg/mg High 10- [facility] Basic Metabolic Profile (BMP )on 01-26-2025 BUN Normal 4-19 [facility] Comment on above: Result Comment: Canc elled via OM: Order cancelled - Patient discharged Performed By: #### L 500.2500, L100.0100 ####[facility] [address] [place], [address] BUN/CRE Normal 10- [facility] Comment on above: Result Comment: Canc elled via OM: Order cancelled - Patient discharged Performed By: #### L 500.2500, L100.0100 ####[facility] [address] [place], [address] Calcium Normal 7.6-11.0 [facility] Comment on above: Result Comment: Canc elled via OM: Order cancelled - Patient discharged Performed By: #### L 500.2500, L100.0100 ####[facility] [address] [place], [address] CL Normal 98-108 [facility] Comment on above: Result Comment: Canc elled via OM: Order cancelled - Patient discharged Performed By: #### L 500.2500, L100.0100 ####[facility] [address] [place], [address] CO2 Normal 21.0-32.0 [facility] Comment on above: Result Comment: Canc elled via OM: Order cancelled - Patient discharged Performed By: #### L 500.2500, L100.0100 ####[facility] [address] [place], [address] CREAT,SERUM Normal 0.70-1.20 [facility] Comment on above: Result Comment: Canc elled via OM: Order cancelled - Patient discharged Performed By: #### L 500.2500, L100.0100 ####[facility] [address] [place], [address] eGFR Normal >60 [facility] Comment on above: Result Comment: Canc elled via OM: Order cancelled - Patient discharged Performed By: #### L 500.2500, L100.0100 ####[facility] [address] [place], [address] GAP Normal 5-15 [facility] Comment on above: Result Comment: Canc elled via OM: Order cancelled - Patient discharged Performed By: #### L 500.2500, L100.0100 ####[facility] [address] [place], [address] GLU Normal 70-99 [facility] Comment on above: Result Comment: Canc elled via OM: Order cancelled - Patient discharged Performed By: #### L 500.2500, L100.0100 ####[facility] [address] [place], [address] Potassium Normal 3.3-5.1 [facility] Comment on above: Result Comment: Canc elled via OM: Order cancelled - Patient discharged Performed By: #### L 500.2500, L100.0100 ####[facility] [address] [place], [address] Basic Metabolic Profile (BMP) Normal 133-145 [facility] Comment on above: Result Comment: Canc elled via OM: Order cancelled - Patient discharged Performed By: #### L 500.2500, L100.0100 ####[facility] [address] [place], [address] BUN/CRE 30.2 RATIO High 10-20 [facility] Comment on above: Performed By: #### L 501.5200, L503.7505, L500.2500, L100.0100 ####[facility] [address] [place], [address] Calcium [Mass/Vol] 10.2 mg/dL Normal 7.6-11.0 [facility] Comment on above: Performed By: #### L 501.5200, L503.7505, L500.2500, L100.0100 ####[facility] [address] [place], [address] Chloride [Moles/Vol] 104 mmol/L Normal 98-108 [facility] Comment on above: Performed By: #### L 501.5200, L503.7505, L500.2500, L100.0100 ####[facility] [address] [place], [address] CO2 [Moles/Vol] 27.1 mmol/L Normal 21.0-32.0 [facility] Comment on above: Performed By: #### L 501.5200, L503.7505, L500.2500, L100.0100 ####[facility] [address] [place], [address] Creatinine [Mass/Vol] 1.16 mg/dL Normal 0.70-1.20 [facility] Comment on above: Performed By: #### L 501.5200, L503.7505, L500.2500, L100.0100 ####[facility] [address] [place], [address] ECRCL 38.24 ml/min Low 50-250 [facility] Comment on above: Performed By: #### L 501.5200, L503.7505, L500.2500, L100.0100 ####[facility] [address] [place], [address] GAP 10 Normal 5-15 [facility] Comment on above: Performed By: #### L 501.5200, L503.7505, L500.2500, L100.0100 ####[facility] [address] [place], [address] GFR/1.73 sq M.predicted among non-blacks MDRD (S/P/Bld) [Vol rate/Area] 47 mL/min/{1.73_m2} Low >60 [facility] Comment on above: Result Comment: mL/m in/1.73m2 CKD-EPI Creatinine Equation (2020) Performed By: #### L 501.5200, L503.7505, L500.2500, L100.0100 ####[facility] [address] [place], [address] Glucose [Mass/Vol] 211 mg/dL High 70-99 [facility] Comment on above: Performed By: #### L 501.5200, L503.7505, L500.2500, L100.0100 ####[facility] [address] [place], [address] Potassium [Moles/Vol] 4.1 mmol/L Normal 3.3-5.1 [facility] Comment on above: Performed By: #### L 501.5200, L503.7505, L500.2500, L100.0100 ####[facility] [address] [place], [address] Sodium [Moles/Vol] 141 mmol/L Normal 133-145 [facility] Comment on above: Performed By: #### L 501.5200, L503.7505, L500.2500, L100.0100 ####[facility] [address] [place], [address] Urea nitrogen [Mass/Vol] 35 mg/dL High 4-19 [facility] Comment on above: Performed By: #### L 501.5200, L503.7505, L500.2500, L100.0100 ####[facility] [address] [place], [address] Basophil percentageOrdered B y: Jg Bryan on 01-26-2025 Basophils/100 WBC (Bld) 0.1 % 0-1 [facility] CBC W/Diff, Automatedon 12-30 Absolute Neut Normal 2.0-7.7 [facility] Comment on above: Result Comment: Canc elled via OM: Order cancelled - Patient discharged Performed By: #### L 500.2500, L100.0100 ####[facility] [address] [place], [address] HCT Normal 37-47 [facility] Comment on above: Result Comment: Canc elled via OM: Order cancelled - Patient discharged Performed By: #### L 500.2500, L100.0100 ####[facility] [address] [place], [address] HGB Normal 12.0-15.0 [facility] Comment on above: Result Comment: Canc elled via OM: Order cancelled - Patient discharged Performed By: #### L 500.2500, L100.0100 ####[facility] [address] [place], [address] MCH Normal 27.0-32.0 [facility] Comment on above: Result Comment: Canc elled via OM: Order cancelled - Patient discharged Performed By: #### L 500.2500, L100.0100 ####[facility] [address] [place], [address] MCHC Normal 32-36 [facility] Comment on above: Result Comment: Canc elled via OM: Order cancelled - Patient discharged Performed By: #### L 500.2500, L100.0100 ####[facility] [address] [place], [address] MCV Normal 81-99 [facility] Comment on above: Result Comment: Canc elled via OM: Order cancelled - Patient discharged Performed By: #### L 500.2500, L100.0100 ####[facility] [address] [place], [address] NEUT% Normal 47-70 [facility] Comment on above: Result Comment: Canc elled via OM: Order cancelled - Patient discharged Performed By: #### L 500.2500, L100.0100 ####[facility] [address] [place], [address] PLT Normal 150-450 [facility] Comment on above: Result Comment: Canc elled via OM: Order cancelled - Patient discharged Performed By: #### L 500.2500, L100.0100 ####[facility] [address] [place], [address] RBC Normal 4.2-5.4 [facility] Comment on above: Result Comment: Canc elled via OM: Order cancelled - Patient discharged Performed By: #### L 500.2500, L100.0100 ####[facility] [address] [place], [address] RDW CV Normal 11.6-14.6 [facility] Comment on above: Result Comment: Canc elled via OM: Order cancelled - Patient discharged Performed By: #### L 500.2500, L100.0100 ####[facility] [address] [place], [address] RDW SD Normal 35.1-43.9 [facility] Comment on above: Result Comment: Canc elled via OM: Order cancelled - Patient discharged Performed By: #### L 500.2500, L100.0100 ####[facility] [address] [place], [address] WBC Normal 4.4-11.0 [facility] Comment on above: Result Comment: Canc elled via OM: Order cancelled - Patient discharged Performed By: #### L 500.2500, L100.0100 ####[facility] [address] [place], [address] Absolute Lymph 2.24 X10 3/uL Normal 0.83-4.51 [facility] Comment on above: Performed By: #### L 501.5200, L503.7505, L500.2500, L100.0100 ####[facility] [address] [place], [address] Absolute Neut 5.8 X10 3/uL Normal 2.0-7.7 [facility] Comment on above: Performed By: #### L 501.5200, L503.7505, L500.2500, L100.0100 ####[facility] [address] [place], [address] Basophils/100 WBC (Bld) 0.1 % Normal 0-1 [facility] Comment on above: Performed By: #### L 501.5200, L503.7505, L500.2500, L100.0100 ####[facility] [address] [place], [address] Eosinophils/100 WBC (Bld) 2.8 % Normal 0-5 [facility] Comment on above: Performed By: #### L 501.5200, L503.7505, L500.2500, L100.0100 ####[facility] [address] [place], [address] Erythrocyte distribution width (RBC) [Ratio] 15.9 % High 11.6-14.6 [facility] Comment on above: Performed By: #### L 501.5200, L503.7505, L500.2500, L100.0100 ####[facility] [address] [place], [address] Hematocrit (Bld) [Volume fraction] 37.9 % Normal 37-47 [facility] Comment on above: Performed By: #### L 501.5200, L503.7505, L500.2500, L100.0100 ####[facility] [address] [place], [address] Hemoglobin (Bld) [Mass/Vol] 11.8 g/dL Low 12.0-15.0 [facility] Comment on above: Performed By: #### L 501.5200, L503.7505, L500.2500, L100.0100 ####[facility] [address] [place], [address] IG% 0.300 Normal 0.0-0.9 [facility] Comment on above: Result Comment: IG% - Immature Granulocytes (promyelocytes, myelocytes andmetamyelocytes) > 1% indicates that a LEFT SHIFT is Present. Performed By: #### L 501.5200, L503.7505, L500.2500, L100.0100 ####[facility] [address] [place], [address] Lymphocytes/100 WBC (Bld) 25.1 % Normal 19-41 [facility] [facility] Comment on above: Performed By: #### L 501.5200, L503.7505, L500.2500, L100.0100 ####[facility] [address] [place], [address] MCH (RBC) [Entitic mass] 27.3 pg Normal 27.0-32.0 [facility] Comment on above: Performed By: #### L 501.5200, L503.7505, L500.2500, L100.0100 ####[facility] [address] [place], [address] MCHC (RBC) [Mass/Vol] 31.1 g/dL Low 32-36 [facility] Comment on above: Performed By: #### L 501.5200, L503.7505, L500.2500, L100.0100 ####[facility] [address] [place], [address] MCV (RBC) [Entitic vol] 87.5 fL Normal 81-99 [facility] Comment on above: Performed By: #### L 501.5200, L503.7505, L500.2500, L100.0100 ####[facility] [address] [place], [address] Monocytes/100 WBC (Bld) 6.7 % Normal 0-10 [facility] Comment on above: Performed By: #### L 501.5200, L503.7505, L500.2500, L100.0100 ####[facility] [address] [place], [address] Neutrophils/100 WBC (Bld) 65.0 % Normal 47-70 [facility] Comment on above: Performed By: #### L 501.5200, L503.7505, L500.2500, L100.0100 ####[facility] [address] [place], [address] Nucleated RBC (Bld) [#/Vol] 0 10*3/uL Normal 0-5 [facility] Comment on above: Performed By: #### L 501.5200, L503.7505, L500.2500, L100.0100 ####[facility] [address] [place], [address] Platelet mean volume (Bld) [Entitic vol] 10.8 fL Normal 6.2-12.0 [facility] Comment on above: Performed By: #### L 501.5200, L503.7505, L500.2500, L100.0100 ####[facility] [address] [place], [address] Platelets (Bld) [#/Vol] 247 10*3/uL Normal 150-450 [facility] Comment on above: Performed By: #### L 501.5200, L503.7505, L500.2500, L100.0100 ####[facility] [address] [place], [address] RBC (Bld) [#/Vol] 4.33 10*6/uL Normal 4.2-5.4 [facility] Comment on above: Performed By: #### L 501.5200, L503.7505, L500.2500, L100.0100 ####[facility] [address] [place], [address] RDW SD 51.0 fl High 35.1-43.9 [facility] Comment on above: Performed By: #### L 501.5200, L503.7505, L500.2500, L100.0100 ####[facility] [address] [place], [address] WBC (Bld) [#/Vol] 8.9 10*3/uL Normal 4.4-11.0 [facility] Comment on above: Performed By: #### L 501.5200, L503.7505, L500.2500, L100.0100 ####[facility] [address] [place], [address] Carbon dioxide, total [Moles /volume] in Central venous bloodOrdered By: Jg Bryan on 01-26-2025 CO2 [Moles/Vol] 27.1 mmol/L 21.0-32.0 [facility] Chest PA and Lateralon 01-26 Chest PA and Lateral Normal [facility] Chloride assayOrdered By: Matilde Bryan on 01-26-2025 Chloride [Moles/Vol] 104 mmol/L 98-108 [facility] Emergency Department Summary on 01-26-2025 Emergency Department Summary Normal [facility] Eosinophil percentageOrdered By: Jg Bryan on 01-26-2025 Eosinophils/100 WBC (Bld) 2.8 % 0-5 [facility] Erythrocyte distribution wid th ratioOrdered By: Jg Bryan on 01-26-2025 Erythrocyte distribution width (RBC) [Ratio] 15.9 % High 11.6-14.6 [facility] Erythrocyte distribution wid th standard deviationOrdered By: Jg Bryan on 01-26-2025 Erythrocyte distribution width (RBC) [Ratio] 51.0 fl High 35.1-43.9 [facility] Glomerular filtration rate ( GFR) estimation/1.73 sq m using serum, plasma, or whole bOrdered By: Jg Bryan on 01-26-2025 GFR/1.73 sq M.predicted among non-blacks MDRD (S/P/Bld) [Vol rate/Area] 47 mL/min/{1.73_m2} Low >60 [facility] Hematocrit Auto (Bld) [Volum e fraction]Ordered By: Jg Bryan on 01-26-2025 Hematocrit (Bld) [Volume fraction] 37.9 % 37-47 [facility] Hemoglobin measurementOrdere d By: Jg Bryan on 01-26-2025 Hemoglobin (Bld) [Mass/Vol] 11.8 g/dL Low 12.0-15.0 [facility] Immature granulocytes/100 WB C Auto (Bld)Ordered By: Jg Bryan on 01-26-2025 Immature granulocytes/100 WBC (Bld) 0.300 % 0.0-0.9 [facility] L503.7505on 01-26-2025 Natriuretic peptide B (Bld) [Mass/Vol] 3334 pg/mL High <=1800 [facility] Comment on above: Result Comment: Hear t Failure Unlikely: < 300 pg/mLHeart Failure Likely< 50 Years: > 450 pg/mL50-75 Years: > 900 pg/mL>75 Years: > 1800 pg/mL Performed By: #### L 501.5200, L503.7505, L500.2500, L100.0100 ####[facility] [address] [place], [address] MCV (mean corpuscular volume ) determinationOrdered By: Jg Bryan on 01-26-2025 MCV (RBC) [Entitic vol] 87.5 fL 81-99 [facility] Magnesiumon 01-26-2025 Magnesium [Mass/Vol] 2.7 mg/dL High 1.5-2.2 [facility] Comment on above: Performed By: #### L 501.5200, L503.7505, L500.2500, L100.0100 ####[facility] [address] [place], [address] Magnesium measurement (mass/ volume)Ordered By: Jg Bryan on 01-26-2025 Magnesium (Unsp spec) [Mass/Vol] 2.7 mg/dL High 1.5-2.2 [facility] Mean corpuscular hemoglobin (MCH) determinationOrdered By: Jg Bryan on 01-26-2025 MCH (RBC) [Entitic mass] 27.3 pg 27.0-32.0 [facility] Monocyte percentageOrdered B y: Jg Bryan on 01-26-2025 Monocytes/100 WBC (Bld) 6.7 % 0-10 [facility] Natriuretic peptide.B prohor hayley N-Terminal [Mass/volume] in Serum or PlasmaOrdered By: Jg Bryan on 01-26-2025 Natriuretic peptide.B prohormone N-Terminal [Mass/Vol] 3334 pg/mL High <1800 [facility] Neutrophil percentageOrdered By: Jg Bryan on 01-26-2025 Neutrophils/100 WBC (Bld) 65.0 % 47-70 [facility] Platelet countOrdered By: Matilde Bryan on 01-26-2025 Platelets (Bld) [#/Vol] 247 10*3/uL 150-450 [facility] Potassium measurement (mass/ volume)Ordered By: Jg Bryan on 01-26-2025 Potassium (Unsp spec) [Mass/Vol] 4.1 mmol/L 3.3-5.1 [facility] RBC Auto (Bld) [#/Vol]Ordere d By: Jg Bryan on 01-26-2025 RBC (Bld) [#/Vol] 4.33 10*6/uL 4.2-5.4 [facility] Serum creatinine measurement (mass/volume)Ordered By: Jg Bryan on 01-26-2025 Creatinine [Mass/Vol] 1.16 mg/dL 0.70-1.20 [facility] Serum glucose measurement (m ass/volume)Ordered By: Jg Bryan on 01-26-2025 Glucose [Mass/Vol] 211 mg/dL High 70-99 [facility] Serum or plasma calcium melanie urement (mass/volume)Ordered By: Jg Bryan on 01-26-2025 Calcium [Mass/Vol] 10.2 mg/dL 7.6-11.0 [facility] Serum or plasma urea nitroge n measurement (mass/volume)Ordered By: Jg Bryan on 01-26-2025 Urea nitrogen [Mass/Vol] 35 mg/dL High 4-19 [facility] Sodium levelOrdered By: Cosme Bryan on 01-26-2025 Sodium [Moles/Vol] 141 mmol/L 133-145 [facility] White blood cell (WBC) count Ordered By: Jg Bryan on 01-26-2025 WBC (Bld) [#/Vol] 8.9 10*3/uL 4.4-11.0 [facility] Basic Metabolic Profile (BMP )on 01-25-2025 BUN Normal - [facility] Comment on above: Result Comment: Canc elled via OM: Order cancelled - Patient discharged Performed By: #### L 100.0100, L500.2500 ####[facility] [address] [place], [place], [id number] BUN/CRE Normal 10- [facility] Comment on above: Result Comment: Canc elled via OM: Order cancelled - Patient discharged Performed By: #### L 100.0100, L500.2500 ####[facility] [address] [place], [address] Calcium Normal 7.6-11.0 [facility] Comment on above: Result Comment: Canc elled via OM: Order cancelled - Patient discharged Performed By: #### L 100.0100, L500.2500 ####[facility] [address] [place], [address] CL Normal 98-108 [facility] Comment on above: Result Comment: Canc elled via OM: Order cancelled - Patient discharged Performed By: #### L 100.0100, L500.2500 ####[facility] [address] [place], [address] CO2 Normal 21.0-32.0 [facility] Comment on above: Result Comment: Canc elled via OM: Order cancelled - Patient discharged Performed By: #### L 100.0100, L500.2500 ####[facility] [address] [place], [address] CREAT,SERUM Normal 0.70-1.20 [facility] Comment on above: Result Comment: Canc elled via OM: Order cancelled - Patient discharged Performed By: #### L 100.0100, L500.2500 ####[facility] [address] [place], [address] eGFR Normal >60 [facility] Comment on above: Result Comment: Canc elled via OM: Order cancelled - Patient discharged Performed By: #### L 100.0100, L500.2500 ####[facility] [address] [place], [address] GAP Normal 5-15 [facility] Comment on above: Result Comment: Canc elled via OM: Order cancelled - Patient discharged Performed By: #### L 100.0100, L500.2500 ####[facility] [address] [place], [address] GLU Normal 70-99 [facility] Comment on above: Result Comment: Canc elled via OM: Order cancelled - Patient discharged Performed By: #### L 100.0100, L500.2500 ####[facility] [address] [place], [address] Potassium Normal 3.3-5.1 [facility] Comment on above: Result Comment: Canc elled via OM: Order cancelled - Patient discharged Performed By: #### L 100.0100, L500.2500 ####[facility] [address] [place], [address] Basic Metabolic Profile (BMP) Normal 133-145 [facility] Comment on above: Result Comment: Canc elled via OM: Order cancelled - Patient discharged Performed By: #### L 100.0100, L500.2500 ####[facility] [address] [place], [address] CBC W/Diff, Automatedon 05-2 Absolute Neut Normal 2.0-7.7 [facility] Comment on above: Result Comment: Canc elled via OM: Order cancelled - Patient discharged Performed By: #### L 100.0100, L500.2500 ####[facility] [address] [place], [address] HCT Normal 37-47 [facility] Comment on above: Result Comment: Canc elled via OM: Order cancelled - Patient discharged Performed By: #### L 100.0100, L500.2500 ####[facility] [address] [place], [address] HGB Normal 12.0-15.0 [facility] Comment on above: Result Comment: Canc elled via OM: Order cancelled - Patient discharged Performed By: #### L 100.0100, L500.2500 ####[facility] [address] [place], [address] MCH Normal 27.0-32.0 [facility] Comment on above: Result Comment: Canc elled via OM: Order cancelled - Patient discharged Performed By: #### L 100.0100, L500.2500 ####[facility] [address] [place], [address] MCHC Normal 32-36 [facility] Comment on above: Result Comment: Canc elled via OM: Order cancelled - Patient discharged Performed By: #### L 100.0100, L500.2500 ####[facility] [address] [place], [address] MCV Normal 81-99 [facility] Comment on above: Result Comment: Canc elled via OM: Order cancelled - Patient discharged Performed By: #### L 100.0100, L500.2500 ####[facility] [address] [place], [address] NEUT% Normal 47-70 [facility] Comment on above: Result Comment: Canc elled via OM: Order cancelled - Patient discharged Performed By: #### L 100.0100, L500.2500 ####[facility] [address] [place], [address] PLT Normal 150-450 [facility] Comment on above: Result Comment: Canc elled via OM: Order cancelled - Patient discharged Performed By: #### L 100.0100, L500.2500 ####[facility] [address] [place], [address] RBC Normal 4.2-5.4 [facility] Comment on above: Result Comment: Canc elled via OM: Order cancelled - Patient discharged Performed By: #### L 100.0100, L500.2500 ####[facility] [address] [place], [address] RDW CV Normal 11.6-14.6 [facility] Comment on above: Result Comment: Canc elled via OM: Order cancelled - Patient discharged Performed By: #### L 100.0100, L500.2500 ####[facility] [address] [place], [address] RDW SD Normal 35.1-43.9 [facility] Comment on above: Result Comment: Canc elled via OM: Order cancelled - Patient discharged Performed By: #### L 100.0100, L500.2500 ####[facility] [address] [place], [address] WBC Normal 4.4-11.0 [facility] Comment on above: Result Comment: Canc elled via OM: Order cancelled - Patient discharged Performed By: #### L 100.0100, L500.2500 ####[facility] [address] [place], [address] Culture, Blood (WB)on 2024 CUB Blood cultures x2, from two different sites No growth in 5 days. Normal [facility] Comment on above: Performed By: #### M 200.1000 ####[facility] [address] [place], [address] Performed By: #### L 300.4310, L100.0100, L300.3900, L501.4021, L503.6005, L500.4050, M200.1000 ####[facility] [address] [place], [address] Performed By: #### M 200.1000, L503.6005 ####[facility] [address] [place], [address] Absolute lymphocyte countOrd ered By: Melba Hartmann on 01-24-2025 Lymphocytes Auto (Unsp spec) [#/Vol] 2.19 10*3/uL 0.83-4.51 [facility] Anion gap in Serum or Plasma Ordered By: Melba Hartmann on 01-24-2025 Anion gap [Moles/Vol] 12 mmol/L 5-15 [facility] Automated lymphocyte count a s percentage of total leukocytesOrdered By: Melba Hartmann on 01-24-2025 Lymphocytes/100 WBC Auto (Unsp spec) 19.3 % - [facility] BUN/creatinine ratioOrdered By: Melba Mary Kate on 01-24-2025 Urea nitrogen/Creatinine [Mass ratio] 35.2 mg/mg High 06-19 [facility] Basic Metabolic Profile (BMP )on 01-24-2025 BUN/CRE 35.2 RATIO High 06-19 [facility] Comment on above: Performed By: #### L 500.2500, L100.0100 ####[facility] [address] [place], [address] Calcium [Mass/Vol] 10.1 mg/dL Normal 7.6-11.0 [facility] Comment on above: Performed By: #### L 500.2500, L100.0100 ####[facility] [address] [place], [address] Chloride [Moles/Vol] 102 mmol/L Normal 98-108 [facility] Comment on above: Performed By: #### L 500.2500, L100.0100 ####[facility] [address] [place], [address] CO2 [Moles/Vol] 23.7 mmol/L Normal 21.0-32.0 [facility] Comment on above: Performed By: #### L 500.2500, L100.0100 ####[facility] [address] [place], [address] Creatinine [Mass/Vol] 1.31 mg/dL High 0.70-1.20 [facility] Comment on above: Performed By: #### L 500.2500, L100.0100 ####[facility] [address] [place], [address] ECRCL 33.41 ml/min Low 50-250 [facility] Comment on above: Performed By: #### L 500.2500, L100.0100 ####[facility] [address] [place], [address] GAP 12 Normal 5-15 [facility] Comment on above: Performed By: #### L 500.2500, L100.0100 ####[facility] [address] [place], [address] GFR/1.73 sq M.predicted among non-blacks MDRD (S/P/Bld) [Vol rate/Area] 41 mL/min/{1.73_m2} Low >60 [facility] Comment on above: Result Comment: mL/m in/1.73m2 CKD-EPI Creatinine Equation (2020) Performed By: #### L 500.2500, L100.0100 ####[facility] [address] [place], [address] Glucose [Mass/Vol] 133 mg/dL High 70-99 [facility] Comment on above: Performed By: #### L 500.2500, L100.0100 ####[facility] [address] [place], [address] Potassium [Moles/Vol] 3.5 mmol/L Normal 3.3-5.1 [facility] Comment on above: Performed By: #### L 500.2500, L100.0100 ####[facility] [address] [place], [address] Sodium [Moles/Vol] 138 mmol/L Normal 133-145 [facility] Comment on above: Performed By: #### L 500.2500, L100.0100 ####[facility] [address] [place], [address] Urea nitrogen [Mass/Vol] 46 mg/dL High 4-19 [facility] Comment on above: Performed By: #### L 500.2500, L100.0100 ####[facility] [address] [place], [address] Basophil percentageOrdered B y: Melba Hartmann on 01-24-2025 Basophils/100 WBC (Bld) 0.2 % 0-1 [facility] Bedside Glucoseon 01-24-2025 FINGERSTICK GLU 167 mg/dL High 74-106 [facility] Comment on above: Result Comment: KATARINA GEMENT OF PATIENT CARE PER NURSING PROTOCOL Performed By: #### L 501.080 ####[facility] [address] [place], [address] FINGERSTICK GLU 143 mg/dL High 74-106 [facility] Comment on above: Result Comment: KATARINA GEMENT OF PATIENT CARE PER NURSING PROTOCOL Performed By: #### L 501.080 ####[facility] [address] [place], [address] CBC W/Diff, Automatedon 12-30 Absolute Lymph 2.19 X10 3/uL Normal 0.83-4.51 [facility] Comment on above: Performed By: #### L 500.2500, L100.0100 ####[facility] [address] [place], [address] Absolute Neut 8.2 X10 3/uL High 2.0-7.7 [facility] Comment on above: Performed By: #### L 500.2500, L100.0100 ####[facility] [address] [place], [address] Basophils/100 WBC (Bld) 0.2 % Normal 0-1 [facility] Comment on above: Performed By: #### L 500.2500, L100.0100 ####[facility] [address] [place], [address] Eosinophils/100 WBC (Bld) 0.2 % Normal 0-5 [facility] Comment on above: Performed By: #### L 500.2500, L100.0100 ####[facility] [address] [place], [address] Erythrocyte distribution width (RBC) [Ratio] 15.8 % High 11.6-14.6 [facility] Comment on above: Performed By: #### L 500.2500, L100.0100 ####[facility] [address] [place], [address] Hematocrit (Bld) [Volume fraction] 40.7 % Normal 37-47 [facility] Comment on above: Performed By: #### L 500.2500, L100.0100 ####[facility] [address] [place], [address] Hemoglobin (Bld) [Mass/Vol] 12.7 g/dL Normal 12.0-15.0 [facility] Comment on above: Performed By: #### L 500.2500, L100.0100 ####[facility] [address] [place], [address] IG% 0.400 Normal 0.0-0.9 [facility] Comment on above: Result Comment: IG% - Immature Granulocytes (promyelocytes, myelocytes andmetamyelocytes) > 1% indicates that a LEFT SHIFT is Present. Performed By: #### L 500.2500, L100.0100 ####[facility] [address] [place], [address] Lymphocytes/100 WBC (Bld) 19.3 % Normal 19-41 [facility] Comment on above: Performed By: #### L 500.2500, L100.0100 ####[facility] [address] [place], [address] MCH (RBC) [Entitic mass] 27.4 pg Normal 27.0-32.0 [facility] Comment on above: Performed By: #### L 500.2500, L100.0100 ####[facility] [address] [place], [address] MCHC (RBC) [Mass/Vol] 31.2 g/dL Low 32-36 [facility] Comment on above: Performed By: #### L 500.2500, L100.0100 ####[facility] [address] [place], [address] MCV (RBC) [Entitic vol] 87.7 fL Normal 81-99 [facility] Comment on above: Performed By: #### L 500.2500, L100.0100 ####[facility] [address] [place], [address] Monocytes/100 WBC (Bld) 7.4 % Normal 0-10 [facility] Comment on above: Performed By: #### L 500.2500, L100.0100 ####[facility] [address] [place], [address] Neutrophils/100 WBC (Bld) 72.5 % High 47-70 [facility] Comment on above: Performed By: #### L 500.2500, L100.0100 ####[facility] [address] [place], [address] Nucleated RBC (Bld) [#/Vol] 0 10*3/uL Normal 0-5 [facility] Comment on above: Performed By: #### L 500.2500, L100.0100 ####[facility] [address] [place], [address] Platelet mean volume (Bld) [Entitic vol] 10.9 fL Normal 6.2-12.0 [facility] Comment on above: Performed By: #### L 500.2500, L100.0100 ####[facility] [address] [place], [address] Platelets (Bld) [#/Vol] 297 10*3/uL Normal 150-450 [facility] Comment on above: Performed By: #### L 500.2500, L100.0100 ####[facility] [address] [place], [address] RBC (Bld) [#/Vol] 4.64 10*6/uL Normal 4.2-5.4 [facility] Comment on above: Performed By: #### L 500.2500, L100.0100 ####[facility] [address] [place], [address] RDW SD 50.9 fl High 35.1-43.9 [facility] Comment on above: Performed By: #### L 500.2500, L100.0100 ####[facility] [address] [place], [address] WBC (Bld) [#/Vol] 11.3 10*3/uL High 4.4-11.0 [facility] Comment on above: Performed By: #### L 500.2500, L100.0100 ####[facility] [address] [place], [address] Carbon dioxide, total [Moles /volume] in Central venous bloodOrdered By: Melba Hartmann on 01-24-2025 CO2 [Moles/Vol] 23.7 mmol/L 21.0-32.0 [facility] Chloride assayOrdered By: Marifer Hartmann on 01-24-2025 Chloride [Moles/Vol] 102 mmol/L 98-108 [facility] Discharge Instructionon 12-30 Discharge Instruction Normal [facility] Electrocardiogram reportOrde red By: Marcelina Soto on 01-24-2025 EKG study [facility] Work Phone: [phone] Eosinophil percentageOrdered By: Melba Hartmann on 01-24-2025 Eosinophils/100 WBC (Bld) 0.2 % 0-5 [facility] Erythrocyte distribution wid th ratioOrdered By: Melba Hartmann on 01-24-2025 Erythrocyte distribution width (RBC) [Ratio] 15.8 % High 11.6-14.6 [facility] Erythrocyte distribution wid th standard deviationOrdered By: Melba Hartmann on 01-24-2025 Erythrocyte distribution width (RBC) [Ratio] 50.9 fl High 35.1-43.9 [facility] Glomerular filtration rate ( GFR) estimation/1.73 sq m using serum, plasma, or whole bOrdered By: Melba Hartmann on 01-24-2025 GFR/1.73 sq M.predicted among non-blacks MDRD (S/P/Bld) [Vol rate/Area] 41 mL/min/{1.73_m2} Low >60 [facility] deOrdered By: Melba Hartmann on 01-24-2025 Glucose [Mass/Vol] 167 mg/dL High 74-106 [facility] Hematocrit Auto (Bld) [Volum e fraction]Ordered By: Melba Hartmann on 01-24-2025 Hematocrit (Bld) [Volume fraction] 40.7 % 37-47 [facility] Hemoglobin measurementOrdere d By: Melba Hartmann on 01-24-2025 Hemoglobin (Bld) [Mass/Vol] 12.7 g/dL 12.0-15.0 [facility] Immature granulocytes/100 WB C Auto (Bld)Ordered By: Melba Hartmann 01-24-2025 Immature granulocytes/100 WBC (Bld) 0.400 % 0.0-0.9 [facility] MCV (mean corpuscular volume ) determinationOrdered By: Melba Hartmann 01-24-2025 MCV (RBC) [Entitic vol] 87.7 fL 81-99 [facility] Mean corpuscular hemoglobin (MCH) determinationOrdered By: Melba Hartmann on 01-24-2025 MCH (RBC) [Entitic mass] 27.4 pg 27.0-32.0 [facility] Monocyte percentageOrdered B y: Melba Hartmann on 01-24-2025 Monocytes/100 WBC (Bld) 7.4 % 0-10 [facility] Neutrophil percentageOrdered By: Melba Hartmann on 01-24-2025 Neutrophils/100 WBC (Bld) 72.5 % High 47-70 [facility] Platelet countOrdered By: Marifer Hartmann on 01-24-2025 Platelets (Bld) [#/Vol] 297 10*3/uL 150-450 [facility] Potassium measurement (mass/ volume)Ordered By: Melba Hartmann on 01-24-2025 Potassium (Unsp spec) [Mass/Vol] 3.5 mmol/L 3.3-5.1 [facility] RBC Auto (Bld) [#/Vol]Ordere d By: Melba Hartmann on 01-24-2025 RBC (Bld) [#/Vol] 4.64 10*6/uL 4.2-5.4 [facility] Serum creatinine measurement (mass/volume)Ordered By: Melba Hartmann on 01-24-2025 Creatinine [Mass/Vol] 1.31 mg/dL High 0.70-1.20 [facility] Serum glucose measurement (m ass/volume)Ordered By: Melba Hartmann on 01-24-2025 Glucose [Mass/Vol] 133 mg/dL High 70-99 [facility] Serum or plasma calcium melanie urement (mass/volume)Ordered By: Melba Hartmann on 01-24-2025 Calcium [Mass/Vol] 10.1 mg/dL 7.6-11.0 [facility] Serum or plasma urea nitroge n measurement (mass/volume)Ordered By: Melba Hartmann on 01-24-2025 Urea nitrogen [Mass/Vol] 46 mg/dL High 4-19 [facility] Sodium levelOrdered By: Melba Hartmann on 01-24-2025 Sodium [Moles/Vol] 138 mmol/L 133-145 [facility] White blood cell (WBC) count Ordered By: Melba Hartmann on 01-24-2025 WBC (Bld) [#/Vol] 11.3 10*3/uL High 4.4-11.0 [facility] Basic Metabolic Profile (BMP )on 01-23-2025 BUN/CRE 33.0 RATIO High 10-20 [facility] Comment on above: Performed By: #### L 100.0100, L500.2500 ####[facility] [address], [address] Calcium [Mass/Vol] 10.8 mg/dL Normal 7.6-11.0 [facility] Comment on above: Performed By: #### L 100.0100, L500.2500 ####[facility] [address] [place], [address] Chloride [Moles/Vol] 98 mmol/L Normal 98-108 [facility] Comment on above: Performed By: #### L 100.0100, L500.2500 ####[facility] [address] [place], [address] CO2 [Moles/Vol] 25.4 mmol/L Normal 21.0-32.0 [facility] Comment on above: Performed By: #### L 100.0100, L500.2500 ####[facility] [address] [place], [address] Creatinine [Mass/Vol] 1.32 mg/dL High 0.70-1.20 [facility] Comment on above: Performed By: #### L 100.0100, L500.2500 ####[facility] [address] [place], [address] ECRCL 32.84 ml/min Low 50-250 [facility] Comment on above: Performed By: #### L 100.0100, L500.2500 ####[facility] [address] [place], [address] GAP 12 Normal 5-15 [facility] Comment on above: Performed By: #### L 100.0100, L500.2500 ####[facility] [address] [place], [address] GFR/1.73 sq M.predicted among non-blacks MDRD (S/P/Bld) [Vol rate/Area] 41 mL/min/{1.73_m2} Low >60 [facility] Comment on above: Result Comment: mL/m in/1.73m2 CKD-EPI Creatinine Equation (2020) Performed By: #### L 100.0100, L500.2500 ####[facility] [address] [place], [address] Glucose [Mass/Vol] 200 mg/dL High 70-99 [facility] Comment on above: Performed By: #### L 100.0100, L500.2500 ####[facility] [address] [place], [address] Potassium [Moles/Vol] 5.2 mmol/L High 3.3-5.1 [facility] Comment on above: Result Comment: Hemo lysis present, Results??could be affected.?? Performed By: #### L 100.0100, L500.2500 ####[facility] [address] [place], [address] Sodium [Moles/Vol] 135 mmol/L Normal 133-145 [facility] Comment on above: Performed By: #### L 100.0100, L500.2500 ####[facility] [address] [place], [address] Urea nitrogen [Mass/Vol] 44 mg/dL High 4-19 [facility] Comment on above: Performed By: #### L 100.0100, L500.2500 ####[facility] [address] [place], [address] Bedside Glucoseon 01-23-2025 FINGERSTICK GLU 294 mg/dL High 74-106 [facility] Comment on above: Result Comment: KATARINA GEMENT OF PATIENT CARE PER NURSING PROTOCOL Performed By: #### L 501.080 ####[facility] [address] [place], [address] FINGERSTICK GLU 314 mg/dL High 74-106 [facility] Comment on above: Result Comment: KATARINA GEMENT OF PATIENT CARE PER NURSING PROTOCOL Performed By: #### L 501.080 ####[facility] [address] [place], [address] FINGERSTICK GLU 291 mg/dL High 74-106 [facility] Comment on above: Result Comment: KATARINA GEMENT OF PATIENT CARE PER NURSING PROTOCOL Performed By: #### L 501.080 ####[facility] [address] [place], [address] FINGERSTICK GLU 214 mg/dL High 74-106 [facility] Comment on above: Result Comment: KATARINA GEMENT OF PATIENT CARE PER NURSING PROTOCOL Performed By: #### L 501.080 ####[facility] [address] [place], [address] CBC W/Diff, Automatedon 05-2 Absolute Lymph 0.74 X10 3/uL Low 0.83-4.51 [facility] Comment on above: Performed By: #### L 100.0100, L500.2500 ####[facility] [address] [place], [address] Absolute Neut 10.9 X10 3/uL High 2.0-7.7 [facility] Comment on above: Performed By: #### L 100.0100, L500.2500 ####[facility] [address] [place], [address] Basophils/100 WBC (Bld) 0.1 % Normal 0-1 [facility] Comment on above: Performed By: #### L 100.0100, L500.2500 ####[facility] [address] [place], [address] Eosinophils/100 WBC (Bld) 0.0 % Normal 0-5 [facility] Comment on above: Performed By: #### L 100.0100, L500.2500 ####[facility] [address] [place], [address] Erythrocyte distribution width (RBC) [Ratio] 15.8 % High 11.6-14.6 [facility] Comment on above: Performed By: #### L 100.0100, L500.2500 ####[facility] [address] [place], [address] Hematocrit (Bld) [Volume fraction] 41.8 % Normal 37-47 [facility] Comment on above: Performed By: #### L 100.0100, L500.2500 ####[facility] [address] [place], [address] Hemoglobin (Bld) [Mass/Vol] 13.1 g/dL Normal 12.0-15.0 [facility] Comment on above: Performed By: #### L 100.0100, L500.2500 ####[facility] [address] [place], [address] IG% 0.200 Normal 0.0-0.9 [facility] Comment on above: Result Comment: IG% - Immature Granulocytes (promyelocytes, myelocytes andmetamyelocytes) > 1% indicates that a LEFT SHIFT is Present. Performed By: #### L 100.0100, L500.2500 ####[facility] [address] [place], [address] Lymphocytes/100 WBC (Bld) 6.2 % Low 19-41 [facility] Comment on above: Performed By: #### L 100.0100, L500.2500 ####[facility] [address] [place], [address] MCH (RBC) [Entitic mass] 27.3 pg Normal 27.0-32.0 [facility] Comment on above: Performed By: #### L 100.0100, L500.2500 ####[facility] [address] [place], [address] MCHC (RBC) [Mass/Vol] 31.3 g/dL Low 32-36 [facility] Comment on above: Performed By: #### L 100.0100, L500.2500 ####[facility] [address] [place], [address] MCV (RBC) [Entitic vol] 87.1 fL Normal 81-99 [facility] Comment on above: Performed By: #### L 100.0100, L500.2500 ####[facility] [address] [place], [address] Monocytes/100 WBC (Bld) 2.7 % Normal 0-10 [facility] Comment on above: Performed By: #### L 100.0100, L500.2500 ####[facility] [address] [place], [address] Neutrophils/100 WBC (Bld) 90.8 % High 47-70 [facility] Comment on above: Performed By: #### L 100.0100, L500.2500 ####[facility] [address] [place], [address] Nucleated RBC (Bld) [#/Vol] 0 10*3/uL Normal 0-5 [facility] Comment on above: Performed By: #### L 100.0100, L500.2500 ####[facility] [address] [place], [address] Platelet mean volume (Bld) [Entitic vol] 11.6 fL Normal 6.2-12.0 [facility] Comment on above: Performed By: #### L 100.0100, L500.2500 ####[facility] [address] [place], [address] Platelets (Bld) [#/Vol] 322 10*3/uL Normal 150-450 [facility] Comment on above: Performed By: #### L 100.0100, L500.2500 ####[facility] [address] [place], [address] RBC (Bld) [#/Vol] 4.80 10*6/uL Normal 4.2-5.4 [facility] Comment on above: Performed By: #### L 100.0100, L500.2500 ####[facility] [address] [place], [address] RDW SD 50.2 fl High 35.1-43.9 [facility] Comment on above: Performed By: #### L 100.0100, L500.2500 ####[facility] [address] [place], [address] WBC (Bld) [#/Vol] 12.0 10*3/uL High 4.4-11.0 [facility] Comment on above: Performed By: #### L 100.0100, L500.2500 ####[facility] [address] [place], [address] Basic Metabolic Profile (BMP )on 01-22-2025 BUN/CRE 29.2 RATIO High 10-20 [facility] Comment on above: Performed By: #### L 500.2500, L100.0100 ####[facility] [address] [place], [address] Calcium [Mass/Vol] 10.2 mg/dL Normal 7.6-11.0 [facility] Comment on above: Performed By: #### L 500.2500, L100.0100 ####[facility] [address] [place], [address] Chloride [Moles/Vol] 99 mmol/L Normal 98-108 [facility] Comment on above: Performed By: #### L 500.2500, L100.0100 ####[facility] [address] [place], [address] CO2 [Moles/Vol] 27.0 mmol/L Normal 21.0-32.0 [facility] Comment on above: Performed By: #### L 500.2500, L100.0100 ####[facility] [address] [place], [address] Creatinine [Mass/Vol] 1.07 mg/dL Normal 0.70-1.20 [facility] Comment on above: Performed By: #### L 500.2500, L100.0100 ####[facility] [address] [place], [address] ECRCL 40.54 ml/min Low 50-250 [facility] Comment on above: Performed By: #### L 500.2500, L100.0100 ####[facility] [address] [place], [address] GAP 10 Normal 5-15 [facility] Comment on above: Performed By: #### L 500.2500, L100.0100 ####[facility] [address] [place], [address] GFR/1.73 sq M.predicted among non-blacks MDRD (S/P/Bld) [Vol rate/Area] 52 mL/min/{1.73_m2} Low >60 [facility] Comment on above: Result Comment: mL/m in/1.73m2 CKD-EPI Creatinine Equation (2020) Performed By: #### L 500.2500, L100.0100 ####[facility] [address] [place], [address] Glucose [Mass/Vol] 160 mg/dL High 70-99 [facility] Comment on above: Performed By: #### L 500.2500, L100.0100 ####[facility] [address] [place], [address] Potassium [Moles/Vol] 4.8 mmol/L Normal 3.3-5.1 [facility] Comment on above: Performed By: #### L 500.2500, L100.0100 ####[facility] [address] [place], [address] Sodium [Moles/Vol] 136 mmol/L Normal 133-145 [facility] Comment on above: Performed By: #### L 500.2500, L100.0100 ####[facility] [address] [place], [address] Urea nitrogen [Mass/Vol] 31 mg/dL High 4-19 [facility] Comment on above: Performed By: #### L 500.2500, L100.0100 ####[facility] [address] [place], [address] Bedside Glucoseon 01-22-2024 FINGERSTICK GLU 310 mg/dL High 74-106 [facility] Comment on above: Result Comment: KATARINA GEMENT OF PATIENT CARE PER NURSING PROTOCOL Performed By: #### L 501.080 ####[facility] [address] [place], [address] FINGERSTICK GLU 269 mg/dL High 74-106 [facility] Comment on above: Result Comment: KATARINA GEMENT OF PATIENT CARE PER NURSING PROTOCOL Performed By: #### L 501.080 ####[facility] [address] [place], [address] FINGERSTICK GLU 232 mg/dL High 74-106 [facility] Comment on above: Result Comment: KATARINA GEMENT OF PATIENT CARE PER NURSING PROTOCOL Performed By: #### L 501.080 ####[facility] [address] [place], [address] FINGERSTICK GLU 183 mg/dL High 74-106 [facility] Comment on above: Result Comment: KATARINA GEMENT OF PATIENT CARE PER NURSING PROTOCOL Performed By: #### L 501.080 ####[facility] [address] [place], [address] CBC W/Diff, Automatedon 05-2 Absolute Lymph 0.73 X10 3/uL Low 0.83-4.51 [facility] Comment on above: Performed By: #### L 500.2500, L100.0100 ####[facility] [address] [place], [address] Absolute Neut 11.7 X10 3/uL High 2.0-7.7 [facility] Comment on above: Performed By: #### L 500.2500, L100.0100 ####[facility] [address] [place], [address] Basophils/100 WBC (Bld) 0.0 % Normal 0-1 [facility] Comment on above: Performed By: #### L 500.2500, L100.0100 ####[facility] [address] [place], [address] Eosinophils/100 WBC (Bld) 0.0 % Normal 0-5 [facility] Comment on above: Performed By: #### L 500.2500, L100.0100 ####[facility] [address] [place], [address] Erythrocyte distribution width (RBC) [Ratio] 15.9 % High 11.6-14.6 [facility] Comment on above: Performed By: #### L 500.2500, L100.0100 ####[facility] [address] [place], [address] Hematocrit (Bld) [Volume fraction] 35.6 % Low 37-47 [facility] Comment on above: Performed By: #### L 500.2500, L100.0100 ####[facility] [address] [place], [address] Hemoglobin (Bld) [Mass/Vol] 11.1 g/dL Low 12.0-15.0 [facility] Comment on above: Performed By: #### L 500.2500, L100.0100 ####[facility] [address] [place], [address] IG% 0.500 Normal 0.0-0.9 [facility] Comment on above: Result Comment: IG% - Immature Granulocytes (promyelocytes, myelocytes andmetamyelocytes) > 1% indicates that a LEFT SHIFT is Present. Performed By: #### L 500.2500, L100.0100 ####[facility] [address] [place], [address] Lymphocytes/100 WBC (Bld) 5.7 % Low 19-41 [facility] Comment on above: Performed By: #### L 500.2500, L100.0100 ####[facility] [address] [place], [address] MCH (RBC) [Entitic mass] 27.3 pg Normal 27.0-32.0 [facility] Comment on above: Performed By: #### L 500.2500, L100.0100 ####[facility] [address] [place], [address] MCHC (RBC) [Mass/Vol] 31.2 g/dL Low 32-36 [facility] Comment on above: Performed By: #### L 500.2500, L100.0100 ####[facility] [address] [place], [address] MCV (RBC) [Entitic vol] 87.7 fL Normal 81-99 [facility] Comment on above: Performed By: #### L 500.2500, L100.0100 ####[facility] [address] [place], [address] Monocytes/100 WBC (Bld) 2.4 % Normal 0-10 [facility] Comment on above: Performed By: #### L 500.2500, L100.0100 ####[facility] [address] [place], [address] Neutrophils/100 WBC (Bld) 91.4 % High 47-70 [facility] Comment on above: Performed By: #### L 500.2500, L100.0100 ####[facility] [address] [place], [address] Nucleated RBC (Bld) [#/Vol] 0 10*3/uL Normal 0-5 [facility] Comment on above: Performed By: #### L 500.2500, L100.0100 ####[facility] [address] [place], [address] Platelet mean volume (Bld) [Entitic vol] 11.1 fL Normal 6.2-12.0 [facility] Comment on above: Performed By: #### L 500.2500, L100.0100 ####[facility] [address] [place], [address] Platelets (Bld) [#/Vol] 281 10*3/uL Normal 150-450 [facility] Comment on above: Performed By: #### L 500.2500, L100.0100 ####[facility] [address] [place], [address] RBC (Bld) [#/Vol] 4.06 10*6/uL Low 4.2-5.4 [facility] Comment on above: Performed By: #### L 500.2500, L100.0100 ####[facility] [address] [place], [address] RDW SD 51.3 fl High 35.1-43.9 [facility] Comment on above: Performed By: #### L 500.2500, L100.0100 ####[facility] [address] [place], [address] WBC (Bld) [#/Vol] 12.8 10*3/uL High 4.4-11.0 [facility] Comment on above: Performed By: #### L 500.2500, L100.0100 ####[facility] [address] [place], [address] Urine Cultureon 01-22-2025 URC Normal [facility] Comment on above: Performed By: #### M 100.2200 ####[facility] [address] [place], [address] Basic Metabolic Profile (BMP )on 01-21-2025 BUN/CRE 19.6 RATIO Normal 10-20 [facility] Comment on above: Performed By: #### L 503.7505, L500.2500 ####[facility] [address] [place], [address] Calcium [Mass/Vol] 9.8 mg/dL Normal 7.6-11.0 [facility] Comment on above: Performed By: #### L 503.7505, L500.2500 ####[facility] [address] [place], [address] Chloride [Moles/Vol] 99 mmol/L Normal 98-108 [facility] Comment on above: Performed By: #### L 503.7505, L500.2500 ####[facility] [address] [place], [address] CO2 [Moles/Vol] 24.3 mmol/L Normal 21.0-32.0 [facility] Comment on above: Performed By: #### L 503.7505, L500.2500 ####[facility] [address] [place], [address] Creatinine [Mass/Vol] 1.19 mg/dL Normal 0.70-1.20 [facility] Comment on above: Performed By: #### L 503.7505, L500.2500 ####[facility] [address] [place], [address] ECRCL 36.45 ml/min Low 50-250 [facility] Comment on above: Performed By: #### L 503.7505, L500.2500 ####[facility] [address] [place], [address] GAP 14 Normal 5-15 [facility] Comment on above: Performed By: #### L 503.7505, L500.2500 ####[facility] [address] [place], [address] GFR/1.73 sq M.predicted among non-blacks MDRD (S/P/Bld) [Vol rate/Area] 46 mL/min/{1.73_m2} Low >60 [facility] Comment on above: Result Comment: mL/m in/1.73m2 CKD-EPI Creatinine Equation (2020) Performed By: #### L 503.7505, L500.2500 ####[facility] [address] [place], [address] Glucose [Mass/Vol] 208 mg/dL High 70-99 [facility] Comment on above: Performed By: #### L 503.7505, L500.2500 ####[facility] [address] [place], [address] Potassium [Moles/Vol] 4.0 mmol/L Normal 3.3-5.1 [facility] Comment on above: Performed By: #### L 503.7505, L500.2500 ####[facility] [address] [place], [address] Sodium [Moles/Vol] 138 mmol/L Normal 133-145 [facility] Comment on above: Performed By: #### L 503.7505, L500.2500 ####[facility] [address] [place], [address] Urea nitrogen [Mass/Vol] 23 mg/dL High 4-19 [facility] Comment on above: Performed By: #### L 503.7505, L500.2500 ####[facility] [address] [place], [address] Bedside Glucoseon 01-21-2025 FINGERSTICK GLU 271 mg/dL High 74-106 [facility] Comment on above: Result Comment: KATARINA GEMENT OF PATIENT CARE PER NURSING PROTOCOL Performed By: #### L 501.080 ####[facility] [address] [place], [address] FINGERSTICK GLU 254 mg/dL High 74-106 [facility] Comment on above: Result Comment: KATARINA GEMENT OF PATIENT CARE PER NURSING PROTOCOL Performed By: #### L 501.080 ####[facility] [address] [place], [address] FINGERSTICK GLU 323 mg/dL High -106 [facility] Comment on above: Result Comment: KATARINA GEMENT OF PATIENT CARE PER NURSING PROTOCOL Performed By: #### L 501.080 ####[facility] [address] [place], [address] FINGERSTICK GLU 202 mg/dL High 74-106 [facility] Comment on above: Result Comment: KATARINA GEMENT OF PATIENT CARE PER NURSING PROTOCOL Performed By: #### L 501.080 ####[facility] [address] [place], [address] CBC W/Diff, Automatedon 12-30 Absolute Lymph 0.79 X10 3/uL Low 0.83-4.51 [facility] Comment on above: Performed By: #### L 100.0100 ####[facility] [address] [place], [address] Absolute Neut 9.1 X10 3/uL High 2.0-7.7 [facility] Comment on above: Performed By: #### L 100.0100 ####[facility] [address] [place], [address] Basophils/100 WBC (Bld) 0.0 % Normal 0-1 [facility] Comment on above: Performed By: #### L 100.0100 ####[facility] [address] [place], [address] Eosinophils/100 WBC (Bld) 0.0 % Normal 0-5 [facility] Comment on above: Performed By: #### L 100.0100 ####[facility] [address] [place], [address] Erythrocyte distribution width (RBC) [Ratio] 16.0 % High 11.6-14.6 [facility] Comment on above: Performed By: #### L 100.0100 ####[facility] [address] [place], [address] Hematocrit (Bld) [Volume fraction] 35.0 % Low 37-47 [facility] Comment on above: Performed By: #### L 100.0100 ####[facility] [address] [place], [address] Hemoglobin (Bld) [Mass/Vol] 10.8 g/dL Low 12.0-15.0 [facility] Comment on above: Performed By: #### L 100.0100 ####[facility] [address] [place], [address] IG% 0.400 Normal 0.0-0.9 [facility] Comment on above: Result Comment: IG% - Immature Granulocytes (promyelocytes, myelocytes andmetamyelocytes) > 1% indicates that a LEFT SHIFT is Present. Performed By: #### L 100.0100 ####[facility] [address] [place], [address] Lymphocytes/100 WBC (Bld) 7.7 % Low 19-41 [facility] Comment on above: Performed By: #### L 100.0100 ####[facility] [address] [place], [address] MCH (RBC) [Entitic mass] 27.4 pg Normal 27.0-32.0 [facility] Comment on above: Performed By: #### L 100.0100 ####[facility] [address] [place], [address] MCHC (RBC) [Mass/Vol] 30.9 g/dL Low 32-36 [facility] Comment on above: Performed By: #### L 100.0100 ####[facility] [address] [place], [address] MCV (RBC) [Entitic vol] 88.8 fL Normal 81-99 [facility] Comment on above: Performed By: #### L 100.0100 ####[facility] [address] [place], [address] Monocytes/100 WBC (Bld) 3.5 % Normal 0-10 [facility] Comment on above: Performed By: #### L 100.0100 ####[facility] [address] [place], [address] Neutrophils/100 WBC (Bld) 88.4 % High 47-70 [facility] Comment on above: Performed By: #### L 100.0100 ####[facility] [address] [place], [address] Nucleated RBC (Bld) [#/Vol] 0 10*3/uL Normal 0-5 [facility] Comment on above: Performed By: #### L 100.0100 ####[facility] [address] [place], [address] Platelet mean volume (Bld) [Entitic vol] 11.0 fL Normal 6.2-12.0 [facility] Comment on above: Performed By: #### L 100.0100 ####[facility] [address] [place], [address] Platelets (Bld) [#/Vol] 245 10*3/uL Normal 150-450 [facility] Comment on above: Performed By: #### L 100.0100 ####[facility] [address] [place], [address] RBC (Bld) [#/Vol] 3.94 10*6/uL Low 4.2-5.4 [facility] Comment on above: Performed By: #### L 100.0100 ####[facility] [address] [place], [address] RDW SD 51.8 fl High 35.1-43.9 [facility] Comment on above: Performed By: #### L 100.0100 ####[facility] [address] [place], [address] WBC (Bld) [#/Vol] 10.3 10*3/uL Normal 4.4-11.0 [facility] Comment on above: Performed By: #### L 100.0100 ####[facility] [address] [place], [address] Chest 1 View (Portable)on Chest 1 View (Portable) Normal [facility] L503.7505on 01-21-2025 Natriuretic peptide B (Bld) [Mass/Vol] 66453 pg/mL High <=1800 [facility] Comment on above: Result Comment: Hear t Failure Unlikely: < 300 pg/mLHeart Failure Likely< 50 Years: > 450 pg/mL50-75 Years: > 900 pg/mL>75 Years: > 1800 pg/mL Performed By: #### L 503.7505, L500.2500 ####[facility] [address] [place], [address] Natriuretic peptide.B prohor hayley N-Terminal [Mass/volume] in Serum or PlasmaOrdered By: Sandeep Marie on 01-21-2025 Natriuretic peptide.B prohormone N-Terminal [Mass/Vol] 18600 pg/mL High <1800 [facility] 12 Lead EKGon 01-20-2025 12 Lead EKG Normal [facility] Activated partial thrombopla stin time (aPTT) in platelet poor plasma by coagulation aOrdered By: Jeevan Yoder on 01-20-2025 aPTT Coag (PPP) [Time] 26.9 s 24.1-36.2 [facility] Assessment of wrist artery p atency prior to arterial punctureOrdered By: Lucio Borden on 01-20-2025 Arterial patency Wrist artery --pre arterial puncture Positive [facility] Bedside Glucoseon 01-20-2025 FINGERSTICK GLU 265 mg/dL High [facility]106 [facility] Comment on above: Result Comment: KATARINA GEMENT OF PATIENT CARE PER NURSING PROTOCOL Performed By: #### L 501.080 ####[facility] [address] [facility] [address] FINGERSTICK GLU 361 mg/dL [address] Comment on above: Result Comment: KATARINA GEMENT OF PATIENT CARE PER NURSING PROTOCOL Performed By: #### L 501.080 ####[facility] [address] [place], [address] FINGERSTICK GLU 389 mg/dL High [address] [place] [address] Comment on above: Result Comment: KATARINA GEMENT OF PATIENT CARE PER NURSING PROTOCOL Performed By: #### L 501.080 ####[facility] [address] [place], [address] FINGERSTICK GLU 338 mg/dL [address] Comment on above: Result Comment: KATARINA GEMENT OF PATIENT CARE PER NURSING PROTOCOL Performed By: #### L 501.080 ####[facility] [address] [place], [address] Bilirubin Test strip Ql (U)O rdered By: Jeevan Yoder on 01-20-2025 Bilirubin Ql (U) Negative Negative [facility] Bilirubin, totalOrdered By: Jeevan Yoder on 01-20-2025 Bilirubin [Mass/Vol] 0.26 mg/dL 0.00-1.30 [facility] BARON TEST Positive Normal [facility] Comment on above: Performed By: #### L 9000.0800 ####[facility] [address] [place], [address] Base excess Calc (Bld) [Moles/Vol] 10 mmol/L High -2 to +2 [facility] Comment on above: Performed By: #### L 9000.0800 ####[facility] [address] [place], [address] Blood Gas Type ART Normal [facility] Comment on above: Performed By: #### L 9000.0800 ####[facility] [address] [place], [address] CO2 [Moles/Vol] 37 mmol/L Normal [facility] Comment on above: Performed By: #### L 9000.0800 ####[facility] [address] [place], [address] FI02 30.0 [facility] Comment on above: Performed By: #### L 9000.0800 ####[facility] [address] [place], [address] HCO3 (Bld) [Moles/Vol] 35.5 mmol/L High 22-26 [facility] Comment on above: Performed By: #### L 9000.0800 ####[facility] [address] [place], [address] Normal [facility] Comment on above: Performed By: #### L 9000.0800 ####[facility] [address] [place], [address] O2 Delivery Dev BiPAP Normal [facility] Comment on above: Performed By: #### L 9000.0800 ####[facility] [address] [place], [address] pCO2 59.4 mmHg High 35-45 [facility] Comment on above: Performed By: #### L 9000.0800 ####[facility] [address] [place], [address] PEEP 8 Normal [facility] Comment on above: Performed By: #### L 9000.0800 ####[facility] [address] [place], [address] pH (Bld) 7.38 [pH] Normal 7.35-7.45 [facility] Comment on above: Performed By: #### L 9000.0800 ####[facility] [address] [place], [address] PO2 21 mmHG Invalid Interpretation Code 75-100 [facility] Comment on above: Performed By: #### L 9000.0800 ####[facility] [address] [place], [address] Read Back By Yes Normal [facility] Comment on above: Performed By: #### L 9000.0800 ####[facility] [address] [place], [address] Results To tereletsky Normal [facility] Comment on above: Performed By: #### L 9000.0800 ####[facility] [address] [place], [address] RR 14 Normal [facility] Comment on above: Performed By: #### L 9000.0800 ####[facility] [address] [place], [address] SITE R Radial Normal [facility] Comment on above: Performed By: #### L 9000.0800 ####[facility] [address] [place], [address] SO2 32 Low 95-99 [facility] Comment on above: Performed By: #### L 9000.0800 ####[facility] [facility] [address] [place], [address] Time Given 16:55:40 Normal [facility] Comment on above: Performed By: #### L 8999.0800 ####[facility] [address] [place], [address] Vt 500.0 mL Normal [facility] Comment on above: Performed By: #### L 8999.0800 ####[facility] [address] [place], [address] BARON TEST Positive Normal [facility] Comment on above: Performed By: #### L 8999.0800 ####[facility] [address] [place], [address] Base excess Calc (Bld) [Moles/Vol] 5 mmol/L High -2 to +2 [facility] Comment on above: Performed By: #### L 8999.08 ####[facility] [address] [place], [address] Blood Gas Type ART Normal [facility] Comment on above: Performed By: #### L 8999.0800 ####[facility] [address] [place], [address] CO2 [Moles/Vol] 33 mmol/L Normal [facility] Comment on above: Performed By: #### L 8999.0800 ####[facility] [address] [place], [address] FI02 30.0 Normal [facility] Comment on above: Performed By: #### L 8999.08 ####[facility] [address] [place], [address] HCO3 (Bld) [Moles/Vol] 30.8 mmol/L High 22-26 [facility] Comment on above: Performed By: #### L 8999.0800 ####[facility] [address] [place], [address] Mode Not entered Normal [facility] Comment on above: Performed By: #### L 9000.0800 ####[facility] [address] [place], [address] O2 Delivery Dev BiPAP Normal [facility] Comment on above: Performed By: #### L 9000.0800 ####[facility] [address] [place], [address] pCO2 56.2 mmHg High 35-45 [facility] Comment on above: Performed By: #### L 9000.0800 ####[facility] [address] [place], [address] PEEP 8 Normal [facility] Comment on above: Performed By: #### L 9000.0800 ####[facility] [address] [place], [address] pH (Bld) 7.35 [pH] Normal 7.35-7.45 [facility] Comment on above: Performed By: #### L 9000.0800 ####[facility] [address] [place], [address] PO2 37 mmHG Invalid Interpretation Code 75-100 [facility] Comment on above: Performed By: #### L 9000.0800 ####[facility] [address] [place], [address] Read Back By Yes Normal [facility] Comment on above: Performed By: #### L 9000.0800 ####[facility] [address] [place], [address] RR 14 Normal [facility] Comment on above: Performed By: #### L 9000.0800 ####[facility] [address] [place], [address] SITE R Radial Normal [facility] Comment on above: Performed By: #### L 9000.0800 ####[facility] [address] [place], [address] SO2 66 Low 95-99 [facility] Comment on above: Performed By: #### L 9000.0800 ####[facility] [address] [place], [address] Vt 500.0 mL Normal [facility] Comment on above: Performed By: #### L 9000.0800 ####[facility] [address] [place], [address] BARON TEST Positive Normal [facility] Comment on above: Performed By: #### L 9000.0800 ####[facility] [address] [place], [address] Base excess Calc (Bld) [Moles/Vol] 5 mmol/L High -2 to +2 [facility] Comment on above: Performed By: #### L 9000.0800 ####[facility] [address] [place], [address] Blood Gas Type ART Normal [facility] Comment on above: Performed By: #### L 9000.0800 ####[facility] [address] [place], [address] CO2 [Moles/Vol] 34 mmol/L Normal [facility] Comment on above: Performed By: #### L 9000.0800 ####[facility] [address] [place], [address] Comment Normal [facility] Comment on above: Result Comment: AVAP S 500vt 14rr 100% +8 maxP=26 minP=18 Performed By: #### L 9000.0800 ####[facility] [address] [place], [address] FI02 100.0 Normal [facility] Comment on above: Performed By: #### L 9000.0800 ####[facility] [address] [place], [address] HCO3 (Bld) [Moles/Vol] 31.6 mmol/L High 22-26 [facility] Comment on above: Performed By: #### L 9000.0800 ####[facility] [address] [place], [address] Mode Not entered Normal [facility] Comment on above: Performed By: #### L 9000.0800 ####[facility] [address] [place], [address] O2 Delivery Dev BiPAP Normal [facility] Comment on above: Performed By: #### L 9000.0800 ####[facility] [address] [place], [address] pCO2 63.0 mmHg High 35-45 [facility] Comment on above: Performed By: #### L 9000.0800 ####[facility] [address] [place], [address] pH (Bld) 7.31 [pH] Low 7.35-7.45 [facility] Comment on above: Performed By: #### L 9000.0800 ####[facility] [address] [place], [address] PO2 83 mmHG Normal 75-100 [facility] Comment on above: Performed By: #### L 9000.0800 ####[facility] [address] [place], [address] SITE R Radial Normal [facility] Comment on above: Performed By: #### L 9000.0800 ####[facility] [address] [place], [address] SO2 95 Normal 95-99 [facility] Comment on above: Performed By: #### L 9000.0800 ####[facility] [address] [place], [address] Blood base excess determinat ionOrdered By: Lucio Borden on 01-20-2025 Base excess Calc (BldV) [Moles/Vol] 10 mmol/L High -2-2 [facility] Blood bicarbonate measuremen tOrdered By: Lucio Borden on 01-20-2025 HCO3 (Bld) [Moles/Vol] 35.5 mmol/L High 22-26 [facility] Blood cultureOrdered By: Mikey Marie on 01-20-2025 Bacteria identified Cx Nom (Bld) No growth in 5 days. [facility] Blood cultureOrdered By: Maeve Yoder on 01-20-2025 Bacteria identified Cx Nom (Bld) No growth in 5 days. [facility] Bacteria identified Cx Nom (Bld) No growth in 5 days. [facility] CBC W/Diff, Automatedon 12-30 Absolute Lymph 4.62 X10 3/uL High 0.83-4.51 [facility] Comment on above: Performed By: #### L 300.4310, L100.0100, L300.3900, L501.4021, L503.6005, L500.4050, M200.1000 ####[facility] [address] [place], [address] Absolute Neut 8.4 X10 3/uL High 2.0-7.7 [facility] Comment on above: Performed By: #### L 300.4310, L100.0100, L300.3900, L501.4021, L503.6005, L500.4050, M200.1000 ####[facility] [address] [place], [address] Basophils/100 WBC (Bld) 0.6 % Normal 0-1 [facility] Comment on above: Performed By: #### L 300.4310, L100.0100, L300.3900, L501.4021, L503.6005, L500.4050, M200.1000 ####[facility] [address] [place], [address] Eosinophils/100 WBC (Bld) 0.8 % Normal 0-5 [facility] Comment on above: Performed By: #### L 300.4310, L100.0100, L300.3900, L501.4021, L503.6005, L500.4050, M200.1000 ####[facility] [address] [place], [address] Erythrocyte distribution width (RBC) [Ratio] 16.0 % High 11.6-14.6 [facility] Comment on above: Performed By: #### L 300.4310, L100.0100, L300.3900, L501.4021, L503.6005, L500.4050, M200.1000 ####[facility] [address] [place], [address] Hematocrit (Bld) [Volume fraction] 39.6 % Normal 37-47 [facility] Comment on above: Performed By: #### L 300.4310, L100.0100, L300.3900, L501.4021, L503.6005, L500.4050, M200.1000 ####[facility] [address] [place], [address] Hemoglobin (Bld) [Mass/Vol] 12.1 g/dL Normal 12.0-15.0 [facility] Comment on above: Performed By: #### L 300.4310, L100.0100, L300.3900, L501.4021, L503.6005, L500.4050, M200.1000 ####[facility] [address] [place], [address] IG% 0.500 Normal 0.0-0.9 [facility] Comment on above: Result Comment: IG% - Immature Granulocytes (promyelocytes, myelocytes andmetamyelocytes) > 1% indicates that a LEFT SHIFT is Present. Performed By: #### L 300.4310, L100.0100, L300.3900, L501.4021, L503.6005, L500.4050, M200.1000 ####[facility] [address] [place], [address] Lymphocytes/100 WBC (Bld) 32.0 % Normal 19-41 [facility] Comment on above: Performed By: #### L 300.4310, L100.0100, L300.3900, L501.4021, L503.6005, L500.4050, M200.1000 ####[facility] [address], [address] MCH (RBC) [Entitic mass] 27.4 pg Normal 27.0-32.0 [facility] Comment on above: Performed By: #### L 300.4310, L100.0100, L300.3900, L501.4021, L503.6005, L500.4050, M200.1000 ####[facility] [address] [place], [address] MCHC (RBC) [Mass/Vol] 30.6 g/dL Low 32-36 [facility] Comment on above: Performed By: #### L 300.4310, L100.0100, L300.3900, L501.4021, L503.6005, L500.4050, M200.1000 ####[facility] [address] [place], [address] MCV (RBC) [Entitic vol] 89.8 fL Normal 81-99 [facility] Comment on above: Performed By: #### L 300.4310, L100.0100, L300.3900, L501.4021, L503.6005, L500.4050, M200.1000 ####[facility] [address] [place], [address] Monocytes/100 WBC (Bld) 7.7 % Normal 0-10 [facility] Comment on above: Performed By: #### L 300.4310, L100.0100, L300.3900, L501.4021, L503.6005, L500.4050, M200.1000 ####[facility] [address] [place], [address] Neutrophils/100 WBC (Bld) 58.4 % Normal 47-70 [facility] Comment on above: Performed By: #### L 300.4310, L100.0100, L300.3900, L501.4021, L503.6005, L500.4050, M200.1000 ####[facility] [address] [place], [address] Nucleated RBC (Bld) [#/Vol] 0 10*3/uL Normal 0-5 [facility] Comment on above: Performed By: #### L 300.4310, L100.0100, L300.3900, L501.4021, L503.6005, L500.4050, M200.1000 ####[facility] [address] [place], [address] Platelet mean volume (Bld) [Entitic vol] 12.0 fL Normal 6.2-12.0 [facility] Comment on above: Performed By: #### L 300.4310, L100.0100, L300.3900, L501.4021, L503.6005, L500.4050, M200.1000 ####[facility] [address] [place], [address] Platelets (Bld) [#/Vol] 287 10*3/uL Normal 150-450 [facility] Comment on above: Performed By: #### L 300.4310, L100.0100, L300.3900, L501.4021, L503.6005, L500.4050, M200.1000 ####[facility] [address] [place], [address] RBC (Bld) [#/Vol] 4.41 10*6/uL Normal 4.2-5.4 [facility] Comment on above: Performed By: #### L 300.4310, L100.0100, L300.3900, L501.4021, L503.6005, L500.4050, M200.1000 ####[facility] [address] [place], [address] RDW SD 52.7 fl High 35.1-43.9 [facility] Comment on above: Performed By: #### L 300.4310, L100.0100, L300.3900, L501.4021, L503.6005, L500.4050, M200.1000 ####[facility] [address] [place], [address] WBC (Bld) [#/Vol] 14.4 10*3/uL High 4.4-11.0 [facility] Comment on above: Performed By: #### L 300.4310, L100.0100, L300.3900, L501.4021, L503.6005, L500.4050, M200.1000 ####[facility] [address] [place], [address] CTA Chest W/WO Contraston CTA Chest W/WO Contrast Normal [facility] Calculated very low density lipoprotein (VLDL) cholesterol measurementOrdered By: Sandeep Marie on 01-20-2025 Calculated very low density lipoprotein (VLDL) cholesterol measurement 12 mg/dL 5-40 [facility] Comprehensive Metabolic Prof ilon 01-20-2025 Albumin [Mass/Vol] 3.6 g/dL Normal 3.4-4.8 [facility] Comment on above: Performed By: #### L 300.4310, L100.0100, L300.3900, L501.4021, L503.6005, L500.4050, M200.1000 ####[facility] [address] [place], [address] Albumin/Globulin [Mass ratio] 0.9 {ratio} Normal 0.9-2.4 [facility] Comment on above: Performed By: #### L 300.4310, L100.0100, L300.3900, L501.4021, L503.6005, L500.4050, M200.1000 ####[facility] [address] [place], [address] ALK PHOS 143 U/L High 35-104 [facility] Comment on above: Performed By: #### L 300.4310, L100.0100, L300.3900, L501.4021, L503.6005, L500.4050, M200.1000 ####[facility] [address] [place], [address] ALT [Catalytic activity/Vol] 36 U/L High <=34 [facility] Comment on above: Performed By: #### L 300.4310, L100.0100, L300.3900, L501.4021, L503.6005, L500.4050, M200.1000 ####[facility] [address] [place], [address] AST [Catalytic activity/Vol] 81 U/L High <=31 [facility] Comment on above: Result Comment: Hemo lysis present, Results??could be affected.?? Performed By: #### L 300.4310, L100.0100, L300.3900, L501.4021, L503.6005, L500.4050, M200.1000 ####[facility] [address] [place], [address] Bilirubin [Mass/Vol] 0.26 mg/dL Normal 0.00-1.30 [facility] Comment on above: Performed By: #### L 300.4310, L100.0100, L300.3900, L501.4021, L503.6005, L500.4050, M200.1000 ####[facility] [address] [place], [address] BUN/CRE 8.1 RATIO Low 10-20 [facility] Comment on above: Performed By: #### L 300.4310, L100.0100, L300.3900, L501.4021, L503.6005, L500.4050, M200.1000 ####[facility] [address] [place], [address] Calcium [Mass/Vol] 10.2 mg/dL Normal 7.6-11.0 [facility] Comment on above: Performed By: #### L 300.4310, L100.0100, L300.3900, L501.4021, L503.6005, L500.4050, M200.1000 ####[facility] [address] [place], [address] Chloride [Moles/Vol] 97 mmol/L Low 98-108 [facility] Comment on above: Performed By: #### L 300.4310, L100.0100, L300.3900, L501.4021, L503.6005, L500.4050, M200.1000 ####[facility] [address] [place], [address] CO2 [Moles/Vol] 25.7 mmol/L Normal 21.0-32.0 [facility] Comment on above: Performed By: #### L 300.4310, L100.0100, L300.3900, L501.4021, L503.6005, L500.4050, M200.1000 ####[facility] [address] [place], [address] Creatinine [Mass/Vol] 1.24 mg/dL High 0.70-1.20 [facility] Comment on above: Performed By: #### L 300.4310, L100.0100, L300.3900, L501.4021, L503.6005, L500.4050, M200.1000 ####[facility] [address] [place], [address] ECRCL 34.84 ml/min Low 50-250 [facility] Comment on above: Performed By: #### L 300.4310, L100.0100, L300.3900, L501.4021, L503.6005, L500.4050, M200.1000 ####[facility] [address] [place], [address] GAP 15 Normal 5-15 [facility] Comment on above: Performed By: #### L 300.4310, L100.0100, L300.3900, L501.4021, L503.6005, L500.4050, M200.1000 ####[facility] [address] [place], [address] GFR/1.73 sq M.predicted among non-blacks MDRD (S/P/Bld) [Vol rate/Area] 44 mL/min/{1.73_m2} Low >60 [facility] Comment on above: Result Comment: mL/m in/1.73m2 CKD-EPI Creatinine Equation (2020) Performed By: #### L 300.4310, L100.0100, L300.3900, L501.4021, L503.6005, L500.4050, M200.1000 ####[facility] [address] [place], [address] Globulin (S) [Mass/Vol] 4.1 g/dL Normal 2.2-4.2 [facility] Comment on above: Performed By: #### L 300.4310, L100.0100, L300.3900, L501.4021, L503.6005, L500.4050, M200.1000 ####[facility] [address] [place], [address] Glucose [Mass/Vol] 347 mg/dL High 70-99 [facility] Comment on above: Performed By: #### L 300.4310, L100.0100, L300.3900, L501.4021, L503.6005, L500.4050, M200.1000 ####[facility] [address] [place], [address] Potassium [Moles/Vol] 4.0 mmol/L Normal 3.3-5.1 [facility] Comment on above: Result Comment: Hemo lysis present, Results??could be affected.?? Performed By: #### L 300.4310, L100.0100, L300.3900, L501.4021, L503.6005, L500.4050, M200.1000 ####[facility] [address] [place], [address] Sodium [Moles/Vol] 137 mmol/L Normal 133-145 [facility] Comment on above: Performed By: #### L 300.4310, L100.0100, L300.3900, L501.4021, L503.6005, L500.4050, M200.1000 ####[facility] [address] [place], [address] T PROT 7.6 g/dL Normal 5.9-8.4 [facility] Comment on above: Performed By: #### L 300.4310, L100.0100, L300.3900, L501.4021, L503.6005, L500.4050, M200.1000 ####[facility] [address] [place], [place], [address] Urea nitrogen [Mass/Vol] 10 mg/dL Normal 4-19 [facility] Comment on above: Performed By: #### L 300.4310, L100.0100, L300.3900, L501.4021, L503.6005, L500.4050, M200.1000 ####[facility] [address], [address] Echo Completeon 01-20-2025 Echo Complete Normal [facility] Echocardiogram study reportO rdered By: Marcelina Soto on 01-20-2025 Study report [facility] Work Phone: Emergency Department Summary on 01-20-2025 Emergency Department Summary Normal [facility] H AND P Exam - Hospitaliston 01-20-2025 H&P Exam - Hospitalist Normal [facility] Hemoglobin A1con 01-20-2025 HbA1c (Bld) [Mass fraction] 10.6 % High <=5.6 [facility] Comment on above: Result Comment: Norm al < 5.7 % Prediabetic 5.7 - 6.4 % Diabetic >or= 6.5 % Please note range changes. Performed By: #### L 501.9967 ####[facility] [address] [place], [address] Hemoglobin A1c percentageOrd ered By: Sandeep Marie on 01-20-2025 HbA1c (Bld) [Mass fraction] 10.6 % High <5.7 [facility] Ketones Test strip Ql (U)Ord ered By: Jeevan Yoder on 01-20-2025 Ketones Ql (U) Negative Negative [facility] L499.0042on 01-20-2025 Trop T High Sen 71 ng/L Invalid Interpretation Code <=14 [facility] Comment on above: Result Comment: Crit ical Result(s) Called at:0237 by: [facility].??Results read back by same. Performed By: #### L 499.0042 ####[facility] [address] [place], [address] L499.0043on 01-20-2025 Trop T High Sen 94 ng/L Invalid Interpretation Code <=14 [facility] Comment on above: Order Comment: PT SUAREZ S NOT MADE IT TO ROOM YET FROM ER OF 409 Result Comment: Crit ical Result(s) Called at 0548: by: SHARONA ALVAREZ. ??Results read back by same. Performed By: #### L 499.0043 ####[facility] [address] [place], [address] L501.4021on 01-20-2025 Trop T High Sen 52 ng/L High <=14 [facility] Comment on above: Performed By: #### L 300.4310, L100.0100, L300.3900, L501.4021, L503.6005, L500.4050, M200.1000 ####[facility] [address] [place], [address] L503.7505on 01-20-2025 Natriuretic peptide B (Bld) [Mass/Vol] 9449 pg/mL High <=1800 [facility] Comment on above: Result Comment: Hear t Failure Unlikely: < 300 pg/mLHeart Failure Likely< 50 Years: > 450 pg/mL50-75 Years: > 900 pg/mL>75 Years: > 1800 pg/mL Performed By: #### L 501.9520, L503.7505, L500.4100 ####[facility] [address] [place], [address] LDL calc ser/plasOrdered By: Sandeep Marie on 01-20-2025 Cholesterol in LDL [Mass/Vol] 79 mg/dL [facility] Lactic Acidon 01-20-2025 Lactate [Moles/Vol] 1.7 mmol/L Normal 0.0-2.0 [facility] Comment on above: Performed By: #### L 503.6005 ####[facility] [address] [place], [address] Lactate [Moles/Vol] 2.0 mmol/L Normal 0.0-2.0 [facility] Comment on above: Order Comment: Comme nts: if result >2, system reflex orders 2nd test @ 4hrsY Result Comment: Crit ical Result(s) Called at 0615: by: SHARONA ALVAREZ. ??Results read back by same. Performed By: #### M 200.1000, L503.6005 ####[facility] [address] [place], [address] Lactate [Moles/Vol] 3.4 mmol/L Invalid Interpretation Code 0.0-2.0 [facility] Comment on above: Order Comment: Y Result Comment: Crit ical Result(s) Called at: 0116 by: E[facility] BOWEN TO [facility].??Results read back by same. Performed By: #### L 300.4310, L100.0100, L300.3900, L501.4021, L503.6005, L500.4050, M200.1000 ####[facility] [address] [place], [address] Legionella Antigen Urineon 0 01-20-2025 LEGU Normal [facility] Comment on above: Performed By: #### M 300.4600, M300.4500 ####[facility] [address] [place], [address] Lipid Profileon 01-20-2025 CHOL:HDL 2.89 Normal [facility] Comment on above: Performed By: #### L 501.9520, L503.7505, L500.4100 ####[facility] [address] [place], [address] Cholesterol [Mass/Vol] 140 mg/dL Normal <=200 [facility] Comment on above: Result Comment: Chol esterol level, Desirable <200 mg/dLBorderline high cholesterol 200-239 mg/dLHigh cholesterol >=240 mg/dLRecommendations of the NCEP Adult Treatment Panel for thefollowing risk-cutoff thresholds for the [place] Americanpulation. Performed By: #### L 501.9520, L503.7505, L500.4100 ####[facility] [address] [place], [address] Cholesterol in HDL [Mass/Vol] 49 mg/dL Normal [facility] Comment on above: Result Comment: Camelia onal Cholesterol Education Program (NCEP) guidelines:<40 mg/dL: Low HDL-cholesterol (major risk factor for CHD)>= 60 mg/dL: High HDL-cholesterol (negative risk factor forCHD)HDL-cholesterol is affected by a number of factors, e.g.smoking, exercise, hormones, sex and age. Performed By: #### L 501.9520, L503.7505, L500.4100 ####[facility] [address] [place], [address] Cholesterol in LDL [Mass/Vol] 79 mg/dL Normal [facility] Comment on above: Result Comment: Bord yvvfgl=803-363 mg/dL Higher Afhu=844 mg/dL or greater Performed By: #### L 501.9520, L503.7505, L500.4100 ####[facility] [address] [place], [address] Cholesterol in VLDL [Mass/Vol] 12 mg/dL Normal 5-40 [facility] Comment on above: Performed By: #### L 501.9520, L503.7505, L500.4100 ####[facility] [address] [place], [address] Triglyceride [Mass/Vol] 62 mg/dL Normal [facility] Comment on above: Result Comment: The drugs N-Acetylcysteine and Metamizole may falselydepress this assay.Normal range: <150 mg/dLBorderline High: 150-199 mg/dLHigh: 200-499 mg/dLVery High: >500 mg/dL Performed By: #### L 501.9520, L503.7505, L500.4100 ####[facility] [address] [place], [address] Measurement, pHOrdered By: Connor Borden on 01-20-2025 pH (Unsp spec) 7.38 [pH] 7.35-7.45 [facility] Mucus LM Ql (Urine sed)Order ed By: Jeevan Yoder on 01-20-2025 Mucus Ql (Urine sed) 0 SEEN /hpf [facility] Nitrite Test strip Ql (U)Ord ered By: Jeevan Yoder on 01-20-2025 Nitrite Ql (U) Negative Negative [facility] No Panel InformationOrdered By: Lucio Borden on 01-20-2025 ART [facility] R Radial [facility] ST [facility] BiPAP [facility] 500.0 mL [facility] 14 [facility] 8 [facility] 16:55:40 [facility] Yes [facility] No Panel InformationOrdered By: Jeevan Yoder on 01-20-2025 See comment [facility] 81 U/L High <32 [facility] Partial Thromboplast Timeon 01-20-2025 aPTT Coag (Bld) [Time] 26.9 s Normal 24.1-36.2 [facility] Comment on above: Performed By: #### L 300.4310, L100.0100, L300.3900, L501.4021, L503.6005, L500.4050, M200.1000 ####[facility] [address] [place], [address] Protein Test strip Ql (U)Ord ered By: Jeevan Yoder on 01-20-2025 Protein Ql (U) 100 mg/dl High Negative [facility] Prothrombin Time w/INRon INR Coag (PPP) [Relative time] 1.1 {INR} Normal [facility] Comment on above: Performed By: #### L 300.4310, L100.0100, L300.3900, L501.4021, L503.6005, L500.4050, M200.1000 ####[facility] [address] [place], [address] PT Coag (PPP) [Time] 14.6 s Normal 11.7-14.9 [facility] Comment on above: Performed By: #### L 300.4310, L100.0100, L300.3900, L501.4021, L503.6005, L500.4050, M200.1000 ####[facility] [address] [place], [address] Prothrombin timeOrdered By: Jeevan Yoder on 01-20-2025 PT Coag (PPP) [Time] 14.6 s 11.7-14.9 [facility] RESPIRATORY PANEL MOLECULARo n 01-20-2025 RP PANEL Normal [facility] Comment on above: Performed By: #### M 100.638 ####[facility] [address] [place], [address] Respiratory pathogens detect ion panel by molecular detection methodOrdered By: Sandeep Marie on 01-20-2025 Respiratory pathogens DNA and RNA panel BEBETO+probe (Resp) [facility] Serum globulin measurementOr dered By: Jeevan Yoder on 01-20-2025 Globulin (S) [Mass/Vol] 4.1 g/dL 2.2-4.2 [facility] Serum or plasma alanine kelley otransferase (ALT) measurementOrdered By: Jeevan Yoder on 01-20-2025 ALT [Catalytic activity/Vol] 36 U/L High <35 [facility] Serum or plasma albumin melanie urement (mass/volume)Ordered By: Jeevan Yoder on 01-20-2025 Albumin [Mass/Vol] 3.6 g/dL 3.4-4.8 [facility] Serum or plasma albumin/glob ulin mass ratioOrdered By: Jeevan Yoder on 01-20-2025 Albumin/Globulin [Mass ratio] 0.9 {ratio} 0.9-2.4 [facility] Serum or plasma alkaline lissa sphatase measurementOrdered By: Jeevan Yoder on 01-20-2025 ALP [Catalytic activity/Vol] 143 U/L High 35-104 [facility] Serum or plasma cholesterol in HDL measurement (mass/volume)Ordered By: Sandeep Marie on 01-20-2025 Cholesterol in HDL [Mass/Vol] 49 mg/dL >40 [facility] Serum or plasma cholesterol measurement (mass/volume)Ordered By: Sandeep Marie on 01-20-2025 Cholesterol [Mass/Vol] 140 mg/dL <201 [facility] Squamous epithelial cells de tection in urine sediment by light microscopyOrdered By: Jeevan Yoder on 01-20-2025 Epithelial cells.squamous LM Ql (Urine sed) 5-10 SEEN /hpf 5-10 [facility] Strep pneumoniae Antig(UR,CS F)on 01-20-2025 STPAG Normal [facility] Comment on above: Performed By: #### M 300.4600, M300.4500 ####[facility] [address] [place], [place], [id number] TSH DL <= 0.005 mIU/L QnOrde red By: Sandeep Marie on 01-20-2025 TSH Qn 0.492 uIU/mL 0.300-4.200 [facility] Thyroid Stim Hormone (TSH)on 01-20-2025 TSH 0.492 uIU/mL Normal 0.300-4.200 [facility] Comment on above: Performed By: #### L 501.3394, L503.5485, L500.1130 ####[facility] [address] [place], [place], [id number] Total carbon dioxide measure mentOrdered By: Lucio Borden on 01-20-2025 CO2 [Moles/Vol] 37 mmol/L [facility] Total proteinOrdered By: Maeve Yoder on 01-20-2025 Protein [Mass/Vol] 7.6 g/dL 5.9-8.4 [facility] Troponin T.cardiac [Mass/vol ume] in Serum or Plasma by High sensitivity methodOrdered By: Jeevan Yoder on 01-20-2025 Troponin T.cardiac High sensitivity method [Mass/Vol] 94 ng/L High <14 [facility] Troponin T.cardiac High sensitivity method [Mass/Vol] 71 ng/L High <14 [facility] Troponin T.cardiac High sensitivity method [Mass/Vol] 52 ng/L High <14 [facility] Urinalysis, Completeon 01-20 EPI,SQUAMOUS 5-10 SEEN Normal 5-10 [facility] Comment on above: Order Comment: MARSHALL CTOR TO SPECIFY Performed By: #### L 400.0001 ####[facility] [address] [facility] [address] RBC 5-10 SEEN Normal 0-5 [facility] Comment on above: Order Comment: MARSHALL CTOR TO SPECIFY Performed By: #### L 400.0001 ####[facility] [address] [place], [address] WBC 0-5 SEEN Normal 0-5 [facility] Comment on above: Order Comment: MARSHALL CTOR TO SPECIFY Performed By: #### L 400.0001 ####[facility] [address] [place], [address] BACTERIA 0 SEEN Normal None Seen [facility] Comment on above: Order Comment: MARSHALL CTOR TO SPECIFY Performed By: #### L 400.0001 ####[facility] [address] [place], [address] Mucus Ql (Urine sed) 0 SEEN Normal [facility] Comment on above: Order Comment: MARSHALL CTOR TO SPECIFY Performed By: #### L 400.0001 ####[facility] [address] [place], [address] Urine Legionella pneumophila antigen detectionOrdered By: Sandeep Marie on 01-20-2025 L. pneumophila Ag Ql (U) [facility] Urine clarityOrdered By: Maeve Yoder on 01-20-2025 Clarity (U) Clear Clear [facility] Urine color determinationOrd ered By: Jeevan Yoder on 01-20-2025 Color (U) Straw Yellow [facility] Urine cultureOrdered By: Maeve Yoder on 01-20-2025 Bacteria identified Cx Nom (U) Proteus mirabilis Abnormal [facility] Urine glucose detectionOrder ed By: Jeevan Yoder on 01-20-2025 Glucose Ql (U) 1000 mg/dl High Normal [facility] Urine leukocyte esterase det ection by dipstickOrdered By: Jeevan Yoder on 01-20-2025 Leukocyte esterase Test strip Ql (U) Negative Negative [facility] Urine pHOrdered By: Jeevan Frey ndeforest on 01-20-2025 pH (U) 6.0 [pH] 5.0 - 8.0 [facility] Urine sediment bacteria coun t by microscopy (number/high power field)Ordered By: Jeevan Yoder on 01-20-2025 Bacteria LM.HPF (Urine sed) [#/Area] 0 /[HPF] None Seen [facility] Urine specific gravity measu rementOrdered By: Jeevan Yoder on 01-20-2025 Specific gravity (U) [Rel density] 1.010 1.002-1.030 [facility] Urine urobilinogen measureme ntOrdered By: Jeevan Yoder on 01-20-2025 Urobilinogen Ql (U) Normal mg/dl Normal [facility] White blood cell countOrdere d By: Jeevan Yoder on 01-20-2025 White blood cell count 0-5 SEEN /hpf 0-5 [facility] Anion gap in Serum or Plasma Ordered By: Ramone Smiley on 01-19-2025 Anion gap [Moles/Vol] 14 mmol/L 5-15 [facility] BUN/creatinine ratioOrdered By: Ramone Smiley on 01-19-2025 Urea nitrogen/Creatinine [Mass ratio] 7.7 mg/mg Low 10-20 [facility] Bilirubin, totalOrdered By: Ramone Smiley on 01-19-2025 Bilirubin [Mass/Vol] 0.25 mg/dL 0.00-1.30 [facility] CBC-Complete Blood Cnt No Di ffon 01-19-2025 Erythrocyte distribution width (RBC) [Ratio] 16.0 % High 11.6-14.6 [facility] Comment on above: Order Comment: Order Date: 01/19/25Order Info: [id number] - CBC Performed By: #### L 500.4050, L501.5200, L100.0500 ####[facility] [address] [place], [address] Hematocrit (Bld) [Volume fraction] 35.3 % Low 37-47 [facility] Comment on above: Order Comment: Order Date: 01/19/25Order Info: [id number] - CBC Performed By: #### L 500.4050, L501.5200, L100.0500 ####[facility] [address] [place], [address] Hemoglobin (Bld) [Mass/Vol] 10.9 g/dL Low 12.0-15.0 [facility] Comment on above: Order Comment: Order Date: 01/19/25Order Info: [id number] - CBC Performed By: #### L 500.4050, L501.5200, L100.0500 ####[facility] [address] [place], [address] MCH (RBC) [Entitic mass] 27.7 pg Normal 27.0-32.0 [facility] Comment on above: Order Comment: Order Date: 01/19/25Order Info: [id number] - CBC Performed By: #### L 500.4050, L501.5200, L100.0500 ####[facility] [address] [place], [address] MCHC (RBC) [Mass/Vol] 30.9 g/dL Low 32-36 [facility] Comment on above: Order Comment: Order Date: 01/19/25Order Info: [id number] - CBC Performed By: #### L 500.4050, L501.5200, L100.0500 ####[facility] [address] [place], [address] MCV (RBC) [Entitic vol] 89.6 fL Normal 81-99 [facility] Comment on above: Order Comment: Order Date: 01/19/25Order Info: [id number] - CBC Performed By: #### L 500.4050, L501.5200, L100.0500 ####[facility] [address] [place], [address] Platelet mean volume (Bld) [Entitic vol] 11.6 fL Normal 6.2-12.0 [facility] Comment on above: Order Comment: Order Date: 01/19/25Order Info: [id number] - CBC Performed By: #### L 500.4050, L501.5200, L100.0500 ####[facility] [address] [place], [address] Platelets (Bld) [#/Vol] 253 10*3/uL Normal 150-450 [facility] Comment on above: Order Comment: Order Date: 01/19/25Order Info: [id number] - CBC Performed By: #### L 500.4050, L501.5200, L100.0500 ####[facility] [address] [place], [address] RBC (Bld) [#/Vol] 3.94 10*6/uL Low 4.2-5.4 [facility] Comment on above: Order Comment: Order Date: 01/19/25Order Info: [id number] - CBC Performed By: #### L 500.4050, L501.5200, L100.0500 ####[facility] [address] [place], [address] RDW SD 52.7 fl High 35.1-43.9 [facility] Comment on above: Order Comment: Order Date: 01/19/25Order Info: [id number] - CBC Performed By: #### L 500.4050, L501.5200, L100.0500 ####[facility] [address] [place], [address] WBC (Bld) [#/Vol] 8.3 10*3/uL Normal 4.4-11.0 [facility] Comment on above: Order Comment: Order Date: 01/19/25Order Info: [id number] - CBC Performed By: #### L 500.4050, L501.5200, L100.0500 ####[facility] [address] [place], [address] Carbon dioxide, total [Moles /volume] in Central venous bloodOrdered By: Ramone Smiley on 01-19-2025 CO2 [Moles/Vol] 27.2 mmol/L 21.0-32.0 [facility] Chloride assayOrdered By: Richar Smiley on 01-19-2025 Chloride [Moles/Vol] 96 mmol/L Low 98-108 [facility] Comprehensive Metabolic Prof ilon 01-19-2025 Albumin [Mass/Vol] 3.4 g/dL Normal 3.4-4.8 [facility] Comment on above: Order Comment: Order Date: 01/19/25Order Info: [id number] - CMPOrder Info: [id number] - MG Performed By: #### L 500.4050, L501.5200, L100.0500 ####[facility] [address] [place], [address] Albumin/Globulin [Mass ratio] 0.9 {ratio} Normal 0.9-2.4 [facility] Comment on above: Order Comment: Order Date: 01/19/25Order Info: [id number] - CMPOrder Info: [id number] - MG Performed By: #### L 500.4050, L501.5200, L100.0500 ####[facility] [address] [place], [address] ALK PHOS 123 U/L High 35-104 [facility] Comment on above: Order Comment: Order Date: 01/19/25Order Info: [id number] - CMPOrder Info: [id number] - MG Performed By: #### L 500.4050, L501.5200, L100.0500 ####[facility] [address] [place], [address] ALT [Catalytic activity/Vol] 18 U/L Normal <=34 [facility] Comment on above: Order Comment: Order Date: 01/19/25Order Info: [id number] - CMPOrder Info: [id number] - MG Performed By: #### L 500.4050, L501.5200, L100.0500 ####[facility] [address] [place], [address] AST [Catalytic activity/Vol] 25 U/L Normal <=31 [facility] Comment on above: Order Comment: Order Date: 01/19/25Order Info: [id number] - CMPOrder Info: [id number] - MG Performed By: #### L 500.4050, L501.5200, L100.0500 ####[facility] [address] [place], [address] Bilirubin [Mass/Vol] 0.25 mg/dL Normal 0.00-1.30 [facility] Comment on above: Order Comment: Order Date: 01/19/25Order Info: [id number] - CMPOrder Info: [id number] - MG Performed By: #### L 500.4050, L501.5200, L100.0500 ####[facility] [address] [place], [address] BUN/CRE 7.7 RATIO Low 10-20 [facility] Comment on above: Order Comment: Order Date: 01/19/25Order Info: [id number] - CMPOrder Info: [id number] - MG Performed By: #### L 500.4050, L501.5200, L100.0500 ####[facility] [address] [place], [id number] Calcium [Mass/Vol] 10.4 mg/dL Normal 7.6-11.0 [facility] Comment on above: Order Comment: Order Date: 01/19/25Order Info: [id number] - CMPOrder Info: [id number] - MG Performed By: #### L 500.4050, L501.5200, L100.0500 ####[facility] [address] [place], [address] Chloride [Moles/Vol] 96 mmol/L Low 98-108 [facility] Comment on above: Order Comment: Order Date: 01/19/25Order Info: [id number] - CMPOrder Info: [id number] - MG Performed By: #### L 500.4050, L501.5200, L100.0500 ####[facility] [address] [place], [address] CO2 [Moles/Vol] 27.2 mmol/L Normal 21.0-32.0 [facility] Comment on above: Order Comment: Order Date: 01/19/25Order Info: [id number] - CMPOrder Info: [id number] - MG Performed By: #### L 500.4050, L501.5200, L100.0500 ####[facility] [address] [place], [address] Creatinine [Mass/Vol] 1.06 mg/dL Normal 0.70-1.20 [facility] Comment on above: Order Comment: Order Date: 01/19/25Order Info: [id number] - CMPOrder Info: [id number] - MG Performed By: #### L 500.4050, L501.5200, L100.0500 ####[facility] [address] [place], [address] GAP 14 Normal 5-15 [facility] Comment on above: Order Comment: Order Date: 01/19/25Order Info: [id number] - CMPOrder Info: [id number] - MG Performed By: #### L 500.4050, L501.5200, L100.0500 ####[facility] [address] [place], [address] GFR/1.73 sq M.predicted among non-blacks MDRD (S/P/Bld) [Vol rate/Area] 53 mL/min/{1.73_m2} Low >60 [facility] Comment on above: Order Comment: Order Date: 01/19/25Order Info: [id number] - CMPOrder Info: [id number] - MG Result Comment: mL/m in/1.73m2 CKD-EPI Creatinine Equation (2020) Performed By: #### L 500.4050, L501.5200, L100.0500 ####[facility] [address] [place], [address] Globulin (S) [Mass/Vol] 3.9 g/dL Normal 2.2-4.2 [facility] Comment on above: Order Comment: Order Date: 01/19/25Order Info: [id number] - CMPOrder Info: [id number] - MG Performed By: #### L 500.4050, L501.5200, L100.0500 ####[facility] [address] [place], [address] Glucose [Mass/Vol] 288 mg/dL High 70-99 [facility] Comment on above: Order Comment: Order Date: 01/19/25Order Info: [id number] - CMPOrder Info: [id number] - MG Performed By: #### L 500.4050, L501.5200, L100.0500 ####[facility] [address] [place], [address] Potassium [Moles/Vol] 3.3 mmol/L Normal 3.3-5.1 [facility] Comment on above: Order Comment: Order Date: 01/19/25Order Info: [id number] - CMPOrder Info: [id number] - MG Performed By: #### L 500.4050, L501.5200, L100.0500 ####[facility] [address] [place], [place], [address] Sodium [Moles/Vol] 137 mmol/L Normal 133-145 [facility] Comment on above: Order Comment: Order Date: 01/19/25Order Info: [id number] - CMPOrder Info: [id number] - MG Performed By: #### L 500.4050, L501.5200, L100.0500 ####[facility] [address] [place], [place], [id number] T PROT 7.3 g/dL Normal 5.9-8.4 [facility] Comment on above: Order Comment: Order Date: 01/19/25Order Info: [id number] - CMPOrder Info: [id number] - MG Performed By: #### L 500.4050, L501.5200, L100.0500 ####[facility] [address] [place], [address] Urea nitrogen [Mass/Vol] 8 mg/dL Normal 4-19 [facility] Comment on above: Order Comment: Order Date: 01/19/25Order Info: [id number] - CMPOrder Info: [id number] - MG Performed By: #### L 500.4050, L501.5200, L100.0500 ####[facility] [address] [place], [address] Erythrocyte distribution wid th ratioOrdered By: Ramone Smiley on 01-19-2025 Erythrocyte distribution width (RBC) [Ratio] 16.0 % High 11.6-14.6 [facility] Erythrocyte distribution wid th standard deviationOrdered By: Ramone Smiley on 01-19-2025 Erythrocyte distribution width (RBC) [Ratio] 52.7 fl High 35.1-43.9 [facility] Glomerular filtration rate ( GFR) estimation/1.73 sq m using serum, plasma, or whole bOrdered By: Ramone Smiley on 01-19-2025 GFR/1.73 sq M.predicted among non-blacks MDRD (S/P/Bld) [Vol rate/Area] 53 mL/min/{1.73_m2} Low >60 [facility] Hematocrit Auto (Bld) [Volum e fraction]Ordered By: Ramone Smiley on 01-19-2025 Hematocrit (Bld) [Volume fraction] 35.3 % Low 37-47 [facility] Hemoglobin measurementOrdere d By: Ramone Smiley on 01-19-2025 Hemoglobin (Bld) [Mass/Vol] 10.9 g/dL Low 12.0-15.0 [facility] L503.7505on 01-19-2025 Natriuretic peptide B (Bld) [Mass/Vol] 3173 pg/mL High <=1800 [facility] Comment on above: Order Comment: Order Date: 01/19/25Order Info: [id number] - CMPOrder Info: - MG Result Comment: Hear t Failure Unlikely: < 300 pg/mLHeart Failure Likely< 50 Years: > 450 pg/mL50-75 Years: > 900 pg/mL>75 Years: > 1800 pg/mL Performed By: #### L 503.7505 ####[facility] [address] [place], [place], [address] MCV (mean corpuscular volume ) determinationOrdered By: Ramone Smiley on 01-19-2025 MCV (RBC) [Entitic vol] 89.6 fL 81-99 [facility] Magnesiumon 01-19-2025 Magnesium [Mass/Vol] 2.3 mg/dL High 1.5-2.2 [facility] Comment on above: Order Comment: Order Date: 01/19/25Order Info: [id number] - CMPOrder Info: - MG Performed By: #### L 500.4050, L501.5200, L100.0500 ####[facility] [address] [place], [place], [id number] Magnesium measurement (mass/ volume)Ordered By: Ramone Smiley on 01-19-2025 Magnesium (Unsp spec) [Mass/Vol] 2.3 mg/dL High 1.5-2.2 [facility] Mean corpuscular hemoglobin (MCH) determinationOrdered By: Ramone Smiley on 01-19-2025 MCH (RBC) [Entitic mass] 27.7 pg 27.0-32.0 [facility] Natriuretic peptide.B prohor hayley N-Terminal [Mass/volume] in Serum or PlasmaOrdered By: Ramone Smiley on 01-19-2025 Natriuretic peptide.B prohormone N-Terminal [Mass/Vol] 3173 pg/mL High <1800 [facility] No Panel InformationOrdered By: Ramone Smiley on 01-19-2025 25 U/L <32 [facility] Platelet countOrdered By: Richar Smiley on 01-19-2025 Platelets (Bld) [#/Vol] 253 10*3/uL 150-450 [facility] Potassium measurement (mass/ volume)Ordered By: Ramone Smiley on 01-19-2025 Potassium (Unsp spec) [Mass/Vol] 3.3 mmol/L 3.3-5.1 [facility] RBC Auto (Bld) [#/Vol]Ordere d By: Ramone Smiley on 01-19-2025 RBC (Bld) [#/Vol] 3.94 10*6/uL Low 4.2-5.4 [facility] Serum creatinine measurement (mass/volume)Ordered By: Ramone Smiley on 01-19-2025 Creatinine [Mass/Vol] 1.06 mg/dL 0.70-1.20 [facility] Serum globulin measurementOr dered By: Ramone Smiley on 01-19-2025 Globulin (S) [Mass/Vol] 3.9 g/dL 2.2-4.2 [facility] Serum glucose measurement (m ass/volume)Ordered By: Ramone Smiley on 01-19-2025 Glucose [Mass/Vol] 288 mg/dL High 70-99 [facility] Serum or plasma alanine kelley otransferase (ALT) measurementOrdered By: Ramone Smiley on 01-19-2025 ALT [Catalytic activity/Vol] 18 U/L <35 [facility] Serum or plasma albumin melanie urement (mass/volume)Ordered By: Ramone Smiley on 01-19-2025 Albumin [Mass/Vol] 3.4 g/dL 3.4-4.8 [facility] Serum or plasma albumin/glob ulin mass ratioOrdered By: Ramone Smiley on 01-19-2025 Albumin/Globulin [Mass ratio] 0.9 {ratio} 0.9-2.4 [facility] Serum or plasma alkaline lissa sphatase measurementOrdered By: Ramone Smiley on 01-19-2025 ALP [Catalytic activity/Vol] 123 U/L High 35-104 [facility] Serum or plasma calcium melanie urement (mass/volume)Ordered By: Ramone Smiley on 01-19-2025 Calcium [Mass/Vol] 10.4 mg/dL 7.6-11.0 [facility] Serum or plasma urea nitroge n measurement (mass/volume)Ordered By: Ramone Smiley on 01-19-2025 Urea nitrogen [Mass/Vol] 8 mg/dL 4-19 [facility] Sodium levelOrdered By: Ramone Smiley on 01-19-2025 Sodium [Moles/Vol] 137 mmol/L 133-145 [facility] Total proteinOrdered By: Lilliam Smiley on 01-19-2025 Protein [Mass/Vol] 7.3 g/dL 5.9-8.4 [facility] White blood cell (WBC) count Ordered By: Ramone Smiley on 01-19-2025 WBC (Bld) [#/Vol] 8.3 10*3/uL 4.4-11.0 [facility] 12 Lead EKGon 01-15-2025 12 Lead EKG Normal [facility] Absolute lymphocyte countOrd ered By: Jeevan Yoder on 01-15-2025 Lymphocytes Auto (Unsp spec) [#/Vol] 1.92 10*3/uL 0.83-4.51 [facility] Absolute neutrophil countOrd ered By: Jeevan Yoder on 01-15-2025 Neutrophils (Bld) [#/Vol] 7.7 10*3/uL 2.0-7.7 [facility] Anion gap in Serum or Plasma Ordered By: Jeevan Yoder on 01-15-2025 Anion gap [Moles/Vol] 11 mmol/L 5-15 [facility] Automated lymphocyte count a s percentage of total leukocytesOrdered By: Jeevan Yoder on 01-15-2025 Lymphocytes/100 WBC Auto (Unsp spec) 18.1 % Low 19-41 [facility] BUN/creatinine ratioOrdered By: Jeevan Yoder on 01-15-2025 Urea nitrogen/Creatinine [Mass ratio] 16.6 mg/mg - [facility] Basic Metabolic Profile (BMP )on 01-15-2025 BUN/CRE 16.6 RATIO Normal - [facility] Comment on above: Performed By: #### L 501.4021, L500.2500, L100.0100 ####[facility] [address] [place], [address] Calcium [Mass/Vol] 9.6 mg/dL Normal 7.6-11.0 [facility] Comment on above: Performed By: #### L 501.4021, L500.2500, L100.0100 ####[facility] [address] [place], [address] Chloride [Moles/Vol] 102 mmol/L Normal 98-108 [facility] Comment on above: Performed By: #### L 501.4021, L500.2500, L100.0100 ####[facility] [address] [place], [address] CO2 [Moles/Vol] 25.0 mmol/L Normal 21.0-32.0 [facility] Comment on above: Performed By: #### L 501.4021, L500.2500, L100.0100 ####[facility] [address] [place], [address] Creatinine [Mass/Vol] 0.92 mg/dL Normal 0.70-1.20 [facility] Comment on above: Performed By: #### L 501.4021, L500.2500, L100.0100 ####[facility] [address] [place], [address] ECRCL 48.84 ml/min Low 50-250 [facility] Comment on above: Performed By: #### L 501.4021, L500.2500, L100.0100 ####[facility] [address] [place], [address] GAP 11 Normal 5-15 [facility] Comment on above: Performed By: #### L 501.4021, L500.2500, L100.0100 ####[facility] [address] [place], [address] GFR/1.73 sq M.predicted among non-blacks MDRD (S/P/Bld) [Vol rate/Area] 63 mL/min/{1.73_m2} Normal >60 [facility] Comment on above: Result Comment: mL/m in/1.73m2 CKD-EPI Creatinine Equation (2020) Performed By: #### L 501.4021, L500.2500, L100.0100 ####[facility] [address] [place], [address] Glucose [Mass/Vol] 144 mg/dL High 70-99 [facility] Comment on above: Performed By: #### L 501.4021, L500.2500, L100.0100 ####[facility] [address] [place], [address] Potassium [Moles/Vol] 3.7 mmol/L Normal 3.3-5.1 [facility] Comment on above: Performed By: #### L 501.4021, L500.2500, L100.0100 ####[facility] [address] [place], [address] Sodium [Moles/Vol] 138 mmol/L Normal 133-145 [facility] Comment on above: Performed By: #### L 501.4021, L500.2500, L100.0100 ####[facility] [address] [place], [address] Urea nitrogen [Mass/Vol] 15 mg/dL Normal 4-19 [facility] Comment on above: Performed By: #### L 501.4021, L500.2500, L100.0100 ####[facility] [address] [place], [address] Basophil percentageOrdered B y: Jeevan Yoder on 01-15-2025 Basophils/100 WBC (Bld) 0.3 % 0-1 [facility] CBC W/Diff, Automatedon 12-29 Absolute Lymph 1.92 X10 3/uL Normal 0.83-4.51 [facility] Comment on above: Performed By: #### L 501.4021, L500.2500, L100.0100 ####[facility] [address] [place], [address] Absolute Neut 7.7 X10 3/uL Normal 2.0-7.7 [facility] Comment on above: Performed By: #### L 501.4021, L500.2500, L100.0100 ####[facility] [address] [place], [address] Basophils/100 WBC (Bld) 0.3 % Normal 0-1 [facility] Comment on above: Performed By: #### L 501.4021, L500.2500, L100.0100 ####[facility] [address] [place], [address] Eosinophils/100 WBC (Bld) 1.6 % Normal 0-5 [facility] Comment on above: Performed By: #### L 501.4021, L500.2500, L100.0100 ####[facility] [address] [place], [address] Erythrocyte distribution width (RBC) [Ratio] 16.3 % High 11.6-14.6 [facility] Comment on above: Performed By: #### L 501.4021, L500.2500, L100.0100 ####[facility] [address] [place], [address] Hematocrit (Bld) [Volume fraction] 34.3 % Low 37-47 [facility] Comment on above: Performed By: #### L 501.4021, L500.2500, L100.0100 ####[facility] [address] [place], [address] Hemoglobin (Bld) [Mass/Vol] 11.0 g/dL Low 12.0-15.0 [facility] Comment on above: Performed By: #### L 501.4021, L500.2500, L100.0100 ####[facility] [address] [place], [address] IG% 0.400 Normal 0.0-0.9 [facility] Comment on above: Result Comment: IG% - Immature Granulocytes (promyelocytes, myelocytes andmetamyelocytes) > 1% indicates that a LEFT SHIFT is Present. Performed By: #### L 501.4021, L500.2500, L100.0100 ####[facility] [address] [place], [address] Lymphocytes/100 WBC (Bld) 18.1 % Low 19-41 [facility] Comment on above: Performed By: #### L 501.4021, L500.2500, L100.0100 ####[facility] [address] [place], [address] MCH (RBC) [Entitic mass] 27.8 pg Normal 27.0-32.0 [facility] Comment on above: Performed By: #### L 501.4021, L500.2500, L100.0100 ####[facility] [address] [place], [address] MCHC (RBC) [Mass/Vol] 32.1 g/dL Normal 32-36 [facility] Comment on above: Performed By: #### L 501.4021, L500.2500, L100.0100 ####[facility] [address] [place], [address] MCV (RBC) [Entitic vol] 86.6 fL Normal 81-99 [facility] Comment on above: Performed By: #### L 501.4021, L500.2500, L100.0100 ####[facility] [address] [place], [address] Monocytes/100 WBC (Bld) 6.9 % Normal 0-10 [facility] Comment on above: Performed By: #### L 501.4021, L500.2500, L100.0100 ####[facility] [address] [place], [address] Neutrophils/100 WBC (Bld) 72.7 % High 47-70 [facility] Comment on above: Performed By: #### L 501.4021, L500.2500, L100.0100 ####[facility] [address] [place], [address] Nucleated RBC (Bld) [#/Vol] 0 10*3/uL Normal 0-5 [facility] Comment on above: Performed By: #### L 501.4021, L500.2500, L100.0100 ####[facility] [address] [place], [address] Platelet mean volume (Bld) [Entitic vol] 10.5 fL Normal 6.2-12.0 [facility] Comment on above: Performed By: #### L 501.4021, L500.2500, L100.0100 ####[facility] [address] [place], [address] Platelets (Bld) [#/Vol] 256 10*3/uL Normal 150-450 [facility] Comment on above: Performed By: #### L 501.4021, L500.2500, L100.0100 ####[facility] [address] [place], [address] RBC (Bld) [#/Vol] 3.96 10*6/uL Low 4.2-5.4 [facility] Comment on above: Performed By: #### L 501.4021, L500.2500, L100.0100 ####[facility] [address] [place], [address] RDW SD 50.8 fl High 35.1-43.9 [facility] Comment on above: Performed By: #### L 501.4021, L500.2500, L100.0100 ####[facility] [address] [place], [address] WBC (Bld) [#/Vol] 10.6 10*3/uL Normal 4.4-11.0 [facility] Comment on above: Performed By: #### L 501.4021, L500.2500, L100.0100 ####[facility] [address] [place], [address] Carbon dioxide, total [Moles /volume] in Central venous bloodOrdered By: Jeevan Yoder on 01-15-2025 CO2 [Moles/Vol] 25.0 mmol/L 21.0-32.0 [facility] Chest PA and Lateralon 01-15 Chest PA and Lateral Normal [facility] Chloride assayOrdered By: Kenny Yoder on 01-15-2025 Chloride [Moles/Vol] 102 mmol/L 98-108 [facility] Emergency Department Summary on 01-15-2025 Emergency Department Summary Normal [facility] Eosinophil percentageOrdered By: Jeevan Yoder on 01-15-2025 Eosinophils/100 WBC (Bld) 1.6 % 0-5 [facility] Erythrocyte distribution wid th ratioOrdered By: Jeevan Yoder on 01-15-2025 Erythrocyte distribution width (RBC) [Ratio] 16.3 % High 11.6-14.6 [facility] Erythrocyte distribution wid th standard deviationOrdered By: Jeevan Yoder on 01-15-2025 Erythrocyte distribution width (RBC) [Ratio] 50.8 fl High 35.1-43.9 [facility] Glomerular filtration rate ( GFR) estimation/1.73 sq m using serum, plasma, or whole bOrdered By: Jeevan Yoder on 01-15-2025 GFR/1.73 sq M.predicted among non-blacks MDRD (S/P/Bld) [Vol rate/Area] 63 mL/min/{1.73_m2} >60 [facility] Comment on above: mL/min/1.73m2 CKD-EP I Creatinine Equation (2020) Hematocrit Auto (Bld) [Volum e fraction]Ordered By: Jeevan Yoder on 01-15-2025 Hematocrit (Bld) [Volume fraction] 34.3 % Low 37-47 [facility] Hemoglobin measurementOrdere d By: Jeevan Yoder on 01-15-2025 Hemoglobin (Bld) [Mass/Vol] 11.0 g/dL Low 12.0-15.0 [facility] Immature granulocytes/100 WB C Auto (Bld)Ordered By: Jeevan Yoder on 01-15-2025 Immature granulocytes/100 WBC (Bld) 0.400 % 0.0-0.9 [facility] Comment on above: IG% - Immature Granu locytes (promyelocytes, myelocytes and metamyelocytes) > 1% indicates that a LEFT SHIFT is Present. L499.0042on 01-15-2025 Trop T High Sen 46 ng/L High <=14 [facility] Comment on above: Performed By: #### L 499.0042 ####[facility] [address] [place], [address] L499.0043on 01-15-2025 Trop T High Sen Normal <=14 [facility] Comment on above: Result Comment: DEP ED Performed By: #### L 499.0043 ####[facility] [address] [place], [address] L501.4021on 01-15-2025 Trop T High Sen 46 ng/L High <=14 [facility] Comment on above: Performed By: #### L 501.4021, L500.2500, L100.0100 ####[facility] [address] [place], [address] L503.7505on 01-15-2025 Natriuretic peptide B (Bld) [Mass/Vol] 4224 pg/mL High <=1800 [facility] Comment on above: Result Comment: Hear t Failure Unlikely: < 300 pg/mLHeart Failure Likely< 50 Years: > 450 pg/mL50-75 Years: > 900 pg/mL>75 Years: > 1800 pg/mL Performed By: #### L 503.7505 ####[facility] [address] [place], [address] MCV (mean corpuscular volume ) determinationOrdered By: Jeevan Yoder on 01-15-2025 MCV (RBC) [Entitic vol] 86.6 fL 81-99 [facility] Mean corpuscular hemoglobin (MCH) determinationOrdered By: Jeevan Yoder on 01-15-2025 MCH (RBC) [Entitic mass] 27.8 pg 27.0-32.0 [facility] Mean corpuscular hemoglobin concentration (MCHC) determinationOrdered By: Jeevan Yoder on 01-15-2025 MCHC (RBC) [Mass/Vol] 32.1 g/dL 32-36 [facility] Mean platelet volume determi nationOrdered By: Jeevan Yoder on 01-15-2025 Platelet mean volume (Bld) [Entitic vol] 10.5 fL 6.2-12.0 [facility] Monocyte percentageOrdered B y: Jeevan Yoder on 01-15-2025 Monocytes/100 WBC (Bld) 6.9 % 0-10 [facility] Natriuretic peptide.B prohor hayley N-Terminal [Mass/volume] in Serum or PlasmaOrdered By: Jeevan Yoder on 01-15-2025 Natriuretic peptide.B prohormone N-Terminal [Mass/Vol] 4224 pg/mL High <1800 [facility] Comment on above: Heart Failure Unlike ly: < 300 pg/mLHeart Failure Likely< 50 Years: > 450 pg/mL50-75 Years: > 900 pg/mL>75 Years: > 1800 pg/mL Neutrophil percentageOrdered By: Jeevan Yoder on 01-15-2025 Neutrophils/100 WBC (Bld) 72.7 % High 47-70 [facility] Nucleated red blood cell per centageOrdered By: Jeevan Yoder on 01-15-2025 Nucleated RBC/100 WBC (Bld) [Ratio] 0 % 0-5 [facility] Platelet countOrdered By: Kenny Yoder on 01-15-2025 Platelets (Bld) [#/Vol] 256 10*3/uL 150-450 [facility] Potassium measurement (mass/ volume)Ordered By: Jeevan Yoder on 01-15-2025 Potassium (Unsp spec) [Mass/Vol] 3.7 mmol/L 3.3-5.1 [facility] RBC Auto (Bld) [#/Vol]Ordere d By: Jeevan Yoder on 01-15-2025 RBC (Bld) [#/Vol] 3.96 10*6/uL Low 4.2-5.4 [facility] Serum creatinine measurement (mass/volume)Ordered By: Jeevan Yoder on 01-15-2025 Creatinine [Mass/Vol] 0.92 mg/dL 0.70-1.20 [facility] Serum glucose measurement (m ass/volume)Ordered By: Jeevan Yoder on 01-15-2025 Glucose [Mass/Vol] 144 mg/dL High 70-99 [facility] Serum or plasma calcium melanie urement (mass/volume)Ordered By: Jeevan Yoder on 01-15-2025 Calcium [Mass/Vol] 9.6 mg/dL 7.6-11.0 [facility] Serum or plasma urea nitroge n measurement (mass/volume)Ordered By: Jeevan Yoder on 01-15-2025 Urea nitrogen [Mass/Vol] 15 mg/dL 4-19 [facility] Sodium levelOrdered By: Marcelino Yoder on 01-15-2025 Sodium [Moles/Vol] 138 mmol/L 133-145 [facility] Troponin T.cardiac [Mass/vol ume] in Serum or Plasma by High sensitivity methodOrdered By: Jeevan Yoder on 01-15-2025 Troponin T.cardiac High sensitivity method [Mass/Vol] 46 ng/L High <14 [facility] Troponin T.cardiac High sensitivity method [Mass/Vol] 46 ng/L High <14 [facility] White blood cell (WBC) count Ordered By: Jeevan Yoder on 01-15-2025 WBC (Bld) [#/Vol] 10.6 10*3/uL 4.4-11.0 [facility] 12 Lead EKGon 01-07-2025 12 Lead EKG Normal [facility] Absolute lymphocyte countOrd ered By: Ethan Darnell on 01-07-2025 Lymphocytes Auto (Unsp spec) [#/Vol] 2.89 10*3/uL 0.83-4.51 [facility] Absolute neutrophil countOrd ered By: Ethan Darnell on 01-07-2025 Neutrophils (Bld) [#/Vol] 5.3 10*3/uL 2.0-7.7 [facility] Anion gap in Serum or Plasma Ordered By: Ethan Darnell on 01-07-2025 Anion gap [Moles/Vol] 11 mmol/L 01-12 [facility] Automated lymphocyte count a s percentage of total leukocytesOrdered By: Ethan Darnell on 01-07-2025 Lymphocytes/100 WBC Auto (Unsp spec) 31.8 % - [facility] BUN/creatinine ratioOrdered By: Ethan Darnell on 01-07-2025 Urea nitrogen/Creatinine [Mass ratio] 15.5 mg/mg - [facility] Basic Metabolic Profile (BMP )on 01-07-2025 BUN/CRE 15.5 RATIO Normal - [facility] Comment on above: Performed By: #### L 500.2500, L100.0100 ####[facility] [address] [place], [address] Calcium [Mass/Vol] 10.3 mg/dL Normal 7.6-11.0 [facility] Comment on above: Performed By: #### L 500.2500, L100.0100 ####[facility] [address] [place], [address] Chloride [Moles/Vol] 99 mmol/L Normal 98-108 [facility] Comment on above: Performed By: #### L 500.2500, L100.0100 ####[facility] [address] [place], [address] CO2 [Moles/Vol] 22.5 mmol/L Normal 21.0-32.0 [facility] Comment on above: Performed By: #### L 500.2500, L100.0100 ####[facility] [address] [place], [address] Creatinine [Mass/Vol] 0.90 mg/dL Normal 0.70-1.20 [facility] Comment on above: Performed By: #### L 500.2500, L100.0100 ####[facility] [address] [place], [address] ECRCL 49.31 ml/min Low 50-250 [facility] Comment on above: Performed By: #### L 500.2500, L100.0100 ####[facility] [address] [place], [address] GAP 11 Normal 5-15 [facility] Comment on above: Performed By: #### L 500.2500, L100.0100 ####[facility] [address] [place], [address] GFR/1.73 sq M.predicted among non-blacks MDRD (S/P/Bld) [Vol rate/Area] 64 mL/min/{1.73_m2} Normal >60 [facility] Comment on above: Result Comment: mL/m in/1.73m2 CKD-EPI Creatinine Equation (2020) Performed By: #### L 500.2500, L100.0100 ####[facility] [address] [place], [address] Glucose [Mass/Vol] 321 mg/dL High 70-99 [facility] Comment on above: Performed By: #### L 500.2500, L100.0100 ####[facility] [address] [place], [address] Potassium [Moles/Vol] 3.8 mmol/L Normal 3.3-5.1 [facility] Comment on above: Result Comment: Hemo lysis present, Results??could be affected.?? Performed By: #### L 500.2500, L100.0100 ####[facility] [address] [place], [address] Sodium [Moles/Vol] 133 mmol/L Normal 133-145 [facility] Comment on above: Performed By: #### L 500.2500, L100.0100 ####[facility] [address] [place], [address] Urea nitrogen [Mass/Vol] 14 mg/dL Normal 4-19 [facility] Comment on above: Performed By: #### L 500.2500, L100.0100 ####[facility] [address] [place], [address] Basophil percentageOrdered B y: Ethan Darnell on 01-07-2025 Basophils/100 WBC (Bld) 0.5 % 0-1 [facility] Bedside Glucoseon 01-07-2025 FINGERSTICK GLU 316 mg/dL High 74-106 [facility] Comment on above: Result Comment: KATARINA GARY OF PATIENT CARE PER NURSING PROTOCOL Performed By: #### L 501.080 ####[facility] [address] [place], [address] CBC W/Diff, Automatedon 12-29 Absolute Lymph 2.89 X10 3/uL Normal 0.83-4.51 [facility] Comment on above: Performed By: #### L 500.2500, L100.0100 ####[facility] [address] [place], [address] Absolute Neut 5.3 X10 3/uL Normal 2.0-7.7 [facility] Comment on above: Performed By: #### L 500.2500, L100.0100 ####[facility] [address] [place], [address] Basophils/100 WBC (Bld) 0.5 % Normal 0-1 [facility] Comment on above: Performed By: #### L 500.2500, L100.0100 ####[facility] [address] [place], [address] Eosinophils/100 WBC (Bld) 1.9 % Normal 0-5 [facility] Comment on above: Performed By: #### L 500.2500, L100.0100 ####[facility] [address] [place], [address] Erythrocyte distribution width (RBC) [Ratio] 15.7 % High 11.6-14.6 [facility] Comment on above: Performed By: #### L 500.2500, L100.0100 ####[facility] [address] [place], [address] Hematocrit (Bld) [Volume fraction] 34.0 % Low 37-47 [facility] Comment on above: Performed By: #### L 500.2500, L100.0100 ####[facility] [address] [place], [address] Hemoglobin (Bld) [Mass/Vol] 10.5 g/dL Low 12.0-15.0 [facility] Comment on above: Performed By: #### L 500.2500, L100.0100 ####[facility] [address] [place], [address] IG% 0.200 Normal 0.0-0.9 [facility] Comment on above: Result Comment: IG% - Immature Granulocytes (promyelocytes, myelocytes andmetamyelocytes) > 1% indicates that a LEFT SHIFT is Present. Performed By: #### L 500.2500, L100.0100 ####[facility] [address] [place], [address] Lymphocytes/100 WBC (Bld) 31.8 % Normal 19-41 [facility] Comment on above: Performed By: #### L 500.2500, L100.0100 ####[facility] [address] [place], [address] MCH (RBC) [Entitic mass] 26.9 pg Low 27.0-32.0 [facility] Comment on above: Performed By: #### L 500.2500, L100.0100 ####[facility] [address] [place], [address] MCHC (RBC) [Mass/Vol] 30.9 g/dL Low 32-36 [facility] Comment on above: Performed By: #### L 500.2500, L100.0100 ####[facility] [address] [place], [address] MCV (RBC) [Entitic vol] 87.0 fL Normal 81-99 [facility] Comment on above: Performed By: #### L 500.2500, L100.0100 ####[facility] [address] [place], [address] Monocytes/100 WBC (Bld) 7.6 % Normal 0-10 [facility] Comment on above: Performed By: #### L 500.2500, L100.0100 ####[facility] [address] [place], [address] Neutrophils/100 WBC (Bld) 58.0 % Normal 47-70 [facility] Comment on above: Performed By: #### L 500.2500, L100.0100 ####[facility] [address] [place], [address] Nucleated RBC (Bld) [#/Vol] 0 10*3/uL Normal 0-5 [facility] Comment on above: Performed By: #### L 500.2500, L100.0100 ####[facility] [address] [place], [address] Platelet mean volume (Bld) [Entitic vol] 11.1 fL Normal 6.2-12.0 [facility] Comment on above: Performed By: #### L 500.2500, L100.0100 ####[facility] [address] [place], [address] Platelets (Bld) [#/Vol] 237 10*3/uL Normal 150-450 [facility] Comment on above: Performed By: #### L 500.2500, L100.0100 ####[facility] [address] [place], [address] RBC (Bld) [#/Vol] 3.91 10*6/uL Low 4.2-5.4 [facility] Comment on above: Performed By: #### L 500.2500, L100.0100 ####[facility] [address] [place], [address] RDW SD 49.4 fl High 35.1-43.9 [facility] Comment on above: Performed By: #### L 500.2500, L100.0100 ####[facility] [address] [place], [address] WBC (Bld) [#/Vol] 9.1 10*3/uL Normal 4.4-11.0 [facility] Comment on above: Performed By: #### L 500.2500, L100.0100 ####[facility] [address] [place], [address] Carbon dioxide, total [Moles /volume] in Central venous bloodOrdered By: Ethan Darnell on 01-07-2025 CO2 [Moles/Vol] 22.5 mmol/L 21.0-32.0 [facility] Chest PA and Lateralon 01-07 Chest PA and Lateral Normal [facility] Chloride assayOrdered By: Albaro Darnell on 01-07-2025 Chloride [Moles/Vol] 99 mmol/L 98-108 [facility] Emergency Department Summary on 01-07-2025 Emergency Department Summary Normal [facility] Eosinophil percentageOrdered By: Ethan Darnell on 01-07-2025 Eosinophils/100 WBC (Bld) 1.9 % 0-5 [facility] Erythrocyte distribution wid th ratioOrdered By: Ethan Darnell on 01-07-2025 Erythrocyte distribution width (RBC) [Ratio] 15.7 % High 11.6-14.6 [facility] Erythrocyte distribution wid th standard deviationOrdered By: Ethan Darnell on 01-07-2025 Erythrocyte distribution width (RBC) [Ratio] 49.4 fl High 35.1-43.9 [facility] Glomerular filtration rate ( GFR) estimation/1.73 sq m using serum, plasma, or whole bOrdered By: Ethan Darnell on 01-07-2025 GFR/1.73 sq M.predicted among non-blacks MDRD (S/P/Bld) [Vol rate/Area] 64 mL/min/{1.73_m2} >60 [facility] Comment on above: mL/min/1.73m2 CKD-EP I Creatinine Equation (2020) Glucose measurement at bedsi deOrdered By: Ethan Darnell on 01-07-2025 Glucose [Mass/Vol] 316 mg/dL High 74-106 [facility] Comment on above: MANAGEMENT OF PATIEN T CARE PER NURSING PROTOCOL Hematocrit Auto (Bld) [Volum e fraction]Ordered By: Ethan Darnell on 01-07-2025 Hematocrit (Bld) [Volume fraction] 34.0 % Low 37-47 [facility] Hemoglobin measurementOrdere d By: Ethan Darnell on 01-07-2025 Hemoglobin (Bld) [Mass/Vol] 10.5 g/dL Low 12.0-15.0 [facility] Immature granulocytes/100 WB C Auto (Bld)Ordered By: Ethan Darnell on 01-07-2025 Immature granulocytes/100 WBC (Bld) 0.200 % 0.0-0.9 [facility] Comment on above: IG% - Immature Granu locytes (promyelocytes, myelocytes and metamyelocytes) > 1% indicates that a LEFT SHIFT is Present. Influenza virus A and B and SARS-CoV-2 (COVID-19) and Respiratory syncytial virus RNAOrdered By: Ethan Darnell on 01-07-2025 SARS-CoV-2 (COVID-19) RNA BEBETO+probe Ql (Unsp spec) [facility] M100.678on 01-07-2025 M100.678 SARS-CoV-2 (COVID 19) Negative INFLUENZA A Negative INFLUENZA B Negative RSV PCR Negative Normal [facility] Comment on above: Performed By: #### M 100.678 ####[facility] [address] [place], [address] MCV (mean corpuscular volume ) determinationOrdered By: Ethan Darnell on 01-07-2025 MCV (RBC) [Entitic vol] 87.0 fL 81-99 [facility] Mean corpuscular hemoglobin (MCH) determinationOrdered By: Ethan Darnell on 01-07-2025 MCH (RBC) [Entitic mass] 26.9 pg Low 27.0-32.0 [facility] Mean corpuscular hemoglobin concentration (MCHC) determinationOrdered By: Ethan Darnell on 01-07-2025 MCHC (RBC) [Mass/Vol] 30.9 g/dL Low 32-36 [facility] Mean platelet volume determi nationOrdered By: Ethan aDrnell on 01-07-2025 Platelet mean volume (Bld) [Entitic vol] 11.1 fL 6.2-12.0 [facility] Monocyte percentageOrdered B y: Ethan Darnell on 01-07-2025 Monocytes/100 WBC (Bld) 7.6 % 0-10 [facility] Neutrophil percentageOrdered By: Ethan Darnell on 01-07-2025 Neutrophils/100 WBC (Bld) 58.0 % 47-70 [facility] Nucleated red blood cell per centageOrdered By: Ethan Darnell on 01-07-2025 Nucleated RBC/100 WBC (Bld) [Ratio] 0 % 0-5 [facility] Platelet countOrdered By: Albaro Darnell on 01-07-2025 Platelets (Bld) [#/Vol] 237 10*3/uL 150-450 [facility] Potassium measurement (mass/ volume)Ordered By: Ethan Darnell on 01-07-2025 Potassium (Unsp spec) [Mass/Vol] 3.8 mmol/L 3.3-5.1 [facility] Comment on above: Hemolysis present, R esults could be affected. RBC Auto (Bld) [#/Vol]Ordere d By: Ethan Darnell on 01-07-2025 RBC (Bld) [#/Vol] 3.91 10*6/uL Low 4.2-5.4 [facility] Serum creatinine measurement (mass/volume)Ordered By: Ethan Darnell on 01-07-2025 Creatinine [Mass/Vol] 0.90 mg/dL 0.70-1.20 [facility] Serum glucose measurement (m ass/volume)Ordered By: Ethan Darnell on 01-07-2025 Glucose [Mass/Vol] 321 mg/dL High 70-99 [facility] Serum or plasma calcium melanie urement (mass/volume)Ordered By: Ethan Darnell on 01-07-2025 Calcium [Mass/Vol] 10.3 mg/dL 7.6-11.0 [facility] Serum or plasma urea nitroge n measurement (mass/volume)Ordered By: Ethan Darnell on 01-07-2025 Urea nitrogen [Mass/Vol] 14 mg/dL 4-19 [facility] Sodium levelOrdered By: Ethan Darnell on 01-07-2025 Sodium [Moles/Vol] 133 mmol/L 133-145 [facility] White blood cell (WBC) count Ordered By: Ethan Darnell on 01-07-2025 WBC (Bld) [#/Vol] 9.1 10*3/uL 4.4-11.0 [facility] Inital Evaluation (1) - PTon 10-13-2024 Inital Evaluation (1) - PT Normal [facility] Albumin to globulin ratioOrd ered By: Ramone Smiley on 09-27-2024 Albumin/Globulin [Mass ratio] 0.6 {ratio} Low 0.9-2.4 [facility] Bilirubin, totalOrdered By: Ramone Smiley on 09-27-2024 Bilirubin [Mass/Vol] 0.20 mg/dL 0.20-1.00 [facility] Comment on above: For patients on eltr ombopag therapy, use of Dimension Hatch TBIL is not recommended. Blood urea nitrogen (BUN)/cr eatinine ratioOrdered By: Ramone Smiley on 09-27-2024 Urea nitrogen/Creatinine [Mass ratio] 12.7 mg/mg 10- [facility] CBC-Complete Blood Cnt No Di ffon 09-27-2024 Erythrocyte distribution width (RBC) [Ratio] 15.9 % High 11.6-14.6 [facility] Comment on above: Order Comment: Order Date: 09/27/24Order Info: [id number] - CBC Performed By: #### L 500.4050, L100.0500 ####[facility] [address] [place], [address] Hematocrit (Bld) [Volume fraction] 35.7 % Low 37-47 [facility] Comment on above: Order Comment: Order Date: 09/27/24Order Info: [id number] - CBC Performed By: #### L 500.4050, L100.0500 ####[facility] [address] [place], [address] Hemoglobin (Bld) [Mass/Vol] 11.0 g/dL Low 12.0-15.0 [facility] Comment on above: Order Comment: Order Date: 09/27/24Order Info: [id number] - CBC Performed By: #### L 500.4050, L100.0500 ####[facility] [address] [place], [address] MCH (RBC) [Entitic mass] 25.8 pg Low 27.0-32.0 [facility] Comment on above: Order Comment: Order Date: 09/27/24Order Info: [id number] - CBC Performed By: #### L 500.4050, L100.0500 ####[facility] [address] [place], [address] MCHC (RBC) [Mass/Vol] 30.8 g/dL Low 32-36 [facility] Comment on above: Order Comment: Order Date: 09/27/24Order Info: [id number] - CBC Performed By: #### L 500.4050, L100.0500 ####[facility] [address] [place], [address] MCV (RBC) [Entitic vol] 83.6 fL Normal 81-99 [facility] Comment on above: Order Comment: Order Date: 09/27/24Order Info: [id number] - CBC Performed By: #### L 500.4050, L100.0500 ####[facility] [address] [place], [address] Platelet mean volume (Bld) [Entitic vol] 11.3 fL Normal 6.2-12.0 [facility] Comment on above: Order Comment: Order Date: 09/27/24Order Info: [id number] - CBC Performed By: #### L 500.4050, L100.0500 ####[facility] [address] [place], [address] Platelets (Bld) [#/Vol] 287 10*3/uL Normal 150-450 [facility] Comment on above: Order Comment: Order Date: 09/27/24Order Info: [id number] - CBC Performed By: #### L 500.4050, L100.0500 ####[facility] [address] [place], [address] RBC (Bld) [#/Vol] 4.27 10*6/uL Normal 4.2-5.4 [facility] Comment on above: Order Comment: Order Date: 09/27/24Order Info: [id number] - CBC Performed By: #### L 500.4050, L100.0500 ####[facility] [address] [place], [address] RDW SD 47.4 fl High 35.1-43.9 [facility] Comment on above: Order Comment: Order Date: 09/27/24Order Info: [id number] - CBC Performed By: #### L 500.4050, L100.0500 ####[facility] [address] [place], [address] WBC (Bld) [#/Vol] 8.6 10*3/uL Normal 4.4-11.0 [facility] Comment on above: Order Comment: Order Date: 09/27/24Order Info: [id number] - CBC Performed By: #### L 500.4050, L100.0500 ####[facility] [address] [place], [address] Carbon dioxide measurementOr dered By: Ramone Smiley on 09-27-2024 CO2 [Moles/Vol] 28.0 mmol/L 21.0-32.0 [facility] Chloride measurementOrdered By: Ramone Smiley on 09-27-2024 Chloride [Moles/Vol] 101 mmol/L 98-107 [facility] Comprehensive Metabolic Prof ilon 09-27-2024 Albumin [Mass/Vol] 3.0 g/dL Low 3.2-5.0 [facility] Comment on above: Order Comment: Order Date: 09/27/24Order Info: [id number] - CMPOrder Info: [id number] - CRE Performed By: #### L 500.4050, L100.0500 ####[facility] [address] [place], [address] Albumin/Globulin [Mass ratio] 0.6 {ratio} Low 0.9-2.4 [facility] Comment on above: Order Comment: Order Date: 09/27/24Order Info: [id number] - CMPOrder Info: [id number] - CRE Performed By: #### L 500.4050, L100.0500 ####[facility] [address] [place], [address] ALK P 145 U/L High 45-117 [facility] Comment on above: Order Comment: Order Date: 09/27/24Order Info: [id number] - CMPOrder Info: [id number] - CRE Performed By: #### L 500.4050, L100.0500 ####[facility] [address] [place], [address] ALT [Catalytic activity/Vol] 16 U/L Normal 13-56 [facility] Comment on above: Order Comment: Order Date: 09/27/24Order Info: [id number] - CMPOrder Info: [id number] - CRE Performed By: #### L 500.4050, L100.0500 ####[facility] [address] [place], [address] AST [Catalytic activity/Vol] 16 U/L Normal 15-37 [facility] Comment on above: Order Comment: Order Date: 09/27/24Order Info: [id number] - CMPOrder Info: [id number]- - CRE Performed By: #### L 500.4050, L100.0500 ####[facility] [address] [place], [address] Bilirubin [Mass/Vol] 0.20 mg/dL Normal 0.20-1.00 [facility] Comment on above: Order Comment: Order Date: 09/27/24Order Info: [id number] - CMPOrder Info: [id number] - CRE Result Comment: For patients on eltrombopag therapy, use of Dimension Hatch TBIL is not recommended. Performed By: #### L 500.4050, L100.0500 ####[facility] [address] [place], [address] BUN/CRE 12.7 RATIO Normal 10-20 [facility] Comment on above: Order Comment: Order Date: 09/27/24Order Info: [id number] - CMPOrder Info: [id number] - CRE Performed By: #### L 500.4050, L100.0500 ####[facility] [address] [place], [address] CA,Total 11.0 mg/dL High 8.5-10.1 [facility] Comment on above: Order Comment: Order Date: 09/27/24Order Info: [id number] - CMPOrder Info: [id number]- - CRE Performed By: #### L 500.4050, L100.0500 ####[facility] [address] [place], [address] Chloride [Moles/Vol] 101 mmol/L Normal 98-107 [facility] Comment on above: Order Comment: Order Date: 09/27/24Order Info: [id number] - CMPOrder Info: [id number]- - CRE Performed By: #### L 500.4050, L100.0500 ####[facility] [address] [place], [address] CO2 [Moles/Vol] 28.0 mmol/L Normal 21.0-32.0 [facility] Comment on above: Order Comment: Order Date: 09/27/24Order Info: [id number] - CMPOrder Info: [id number]- - CRE Performed By: #### L 500.4050, L100.0500 ####[facility] [address] [place], [address] Creatinine [Mass/Vol] 0.86 mg/dL Normal 0.55-1.02 [facility] Comment on above: Order Comment: Order Date: 09/27/24Order Info: 07- - CMPOrder Info: [id number] - CRE Result Comment: The validity of the calculated GFR GFRAA in patients over70 years has not been determined. Clinical correlation isessential. Performed By: #### L 500.4050, L100.0500 ####[facility] [address] [place], [address] EST GFR - AA 81 mL/min Normal >60 [facility] Comment on above: Order Comment: Order Date: 09/27/24Order Info: [id number] - CMPOrder Info: [id number] - CRE Result Comment: Afri can [place] GFR Calc Performed By: #### L 500.4050, L100.0500 ####[facility] [address] [place], [address] GAP 8 Normal 5-15 [facility] Comment on above: Order Comment: Order Date: 09/27/24Order Info: [id number] - CMPOrder Info: [id number] - CRE Performed By: #### L 500.4050, L100.0500 ####[facility] [address] [place], [address] GFR/1.73 sq M.predicted among non-blacks MDRD (S/P/Bld) [Vol rate/Area] 67 mL/min/{1.73_m2} Normal >60 [facility] Comment on above: Order Comment: Order Date: 09/27/24Order Info: [id number] - CMPOrder Info: [id number] - CRE Result Comment: Non- GFR Calc Performed By: #### L 500.4050, L100.0500 ####[facility] [address] [place], [address] Globulin (S) [Mass/Vol] 5.0 g/dL High 2.2-4.2 [facility] Comment on above: Order Comment: Order Date: 09/27/24Order Info: [id number] - CMPOrder Info: [id number] - CRE Performed By: #### L 500.4050, L100.0500 ####[facility] [address] [place], [address] Glucose [Mass/Vol] 144 mg/dL High 74-106 [facility] Comment on above: Order Comment: Order Date: 09/27/24Order Info: [id number] - CMPOrder Info: [id number] - CRE Result Comment: Fast ing Glucose result greater than or equal to 126 mg/dLsuggests DIABETES MELLITUS per A.D.A. criteria. Performed By: #### L 500.4050, L100.0500 ####[facility] [address] [place], [address] Potassium [Moles/Vol] 3.5 mmol/L Normal 3.5-5.1 [facility] Comment on above: Order Comment: Order Date: 09/27/24Order Info: [id number] - CMPOrder Info: [id number] - CRE Performed By: #### L 500.4050, L100.0500 ####[facility] [address] [place], [address] Sodium [Moles/Vol] 138 mmol/L Normal 136-145 [facility] Comment on above: Order Comment: Order Date: 09/27/24Order Info: [id number] - CMPOrder Info: [id number] - CRE Performed By: #### L 500.4050, L100.0500 ####[facility] [address] [place], [address] T PROT 8.0 g/dL Normal 6.4-8.2 [facility] Comment on above: Order Comment: Order Date: 09/27/24Order Info: [id number] - CMPOrder Info: [id number] - CRE Performed By: #### L 500.4050, L100.0500 ####[facility] [address] [place], [address] Urea nitrogen [Mass/Vol] 11 mg/dL Normal 7-18 [facility] Comment on above: Order Comment: Order Date: 09/27/24Order Info: [id number] - CMPOrder Info: [id number] - CRE Performed By: #### L 500.4050, L100.0500 ####[facility] [address] [place], [address] Erythrocyte distribution wid th ratioOrdered By: Ramone Smiley on 09-27-2024 Erythrocyte distribution width (RBC) [Ratio] 15.9 % High 11.6-14.6 [facility] Erythrocyte distribution wid th standard deviationOrdered By: Ramone Smiley on 09-27-2024 Erythrocyte distribution width (RBC) [Ratio] 47.4 fl High 35.1-43.9 [facility] Glomerular filtration rate ( GFR) estimationOrdered By: Ramone Smiley on 09-27-2024 GFR/1.73 sq M.predicted among non-blacks MDRD (S/P/Bld) [Vol rate/Area] 67 mL/min/{1.73_m2} >60 [facility] Comment on above: Non- GFR Calc Glucose measurementOrdered B y: Ramone Smiley on 09-27-2024 Glucose [Mass/Vol] 144 mg/dL High 74-106 [facility] Comment on above: Fasting Glucose resu lt greater than or equal to 126 mg/dL suggests DIABETES MELLITUS per A.D.A. criteria. Hematocrit Auto (Bld) [Volum e fraction]Ordered By: Ramone Smiley on 09-27-2024 Hematocrit (Bld) [Volume fraction] 35.7 % Low 37-47 [facility] Hemoglobin measurementOrdere d By: Ramone Smiley on 09-27-2024 Hemoglobin (Bld) [Mass/Vol] 11.0 g/dL Low 12.0-15.0 [facility] Laboratory - Chemistry and C hemistry - challengeOrdered By: Ramone Smiley on 09-27-2024 AST [Catalytic activity/Vol] 16 U/L 15-37 [facility] MCV (mean corpuscular volume ) determinationOrdered By: Ramone Smiley on 09-27-2024 MCV (RBC) [Entitic vol] 83.6 fL 81-99 [facility] Mean corpuscular hemoglobin (MCH) determinationOrdered By: Ramone Smiley on 09-27-2024 MCH (RBC) [Entitic mass] 25.8 pg Low 27.0-32.0 [facility] Mean corpuscular hemoglobin concentration (MCHC) determinationOrdered By: Ramone Smiley on 09-27-2024 MCHC (RBC) [Mass/Vol] 30.8 g/dL Low 32-36 [facility] Mean platelet volume determi nationOrdered By: Ramone Smiley on 09-27-2024 Platelet mean volume (Bld) [Entitic vol] 11.3 fL 6.2-12.0 [facility] No Panel InformationOrdered By: Ramone Smiley on 09-27-2024 16 U/L 15-37 [facility] Platelet countOrdered By: Richar Smiley on 09-27-2024 Platelets (Bld) [#/Vol] 287 10*3/uL 150-450 [facility] Potassium measurementOrdered By: Ramone Smiley on 09-27-2024 Potassium [Moles/Vol] 3.5 mmol/L 3.5-5.1 [facility] RBC Auto (Bld) [#/Vol]Ordere d By: Ramone Smiley on 09-27-2024 RBC (Bld) [#/Vol] 4.27 10*6/uL 4.2-5.4 [facility] Serum anion gap measurementO rdered By: Ramone Smiley on 09-27-2024 Anion gap [Moles/Vol] 8 mmol/L 5-15 [facility] Serum globulin measurementOr dered By: Ramone mSiley on 09-27-2024 Globulin (S) [Mass/Vol] 5.0 g/dL High 2.2-4.2 [facility] Serum or plasma alanine kelley otransferase (ALT) measurementOrdered By: Ramone Smiley on 09-27-2024 ALT [Catalytic activity/Vol] 16 U/L 13-56 [facility] Serum or plasma albumin melanie urement (mass/volume)Ordered By: Ramone Smiley on 09-27-2024 Albumin [Mass/Vol] 3.0 g/dL Low 3.2-5.0 [facility] Serum or plasma alkaline lissa sphatase measurementOrdered By: Ramone Smiley on 09-27-2024 ALP [Catalytic activity/Vol] 145 U/L High 45-117 [facility] Serum or plasma calcium melanie urement (mass/volume)Ordered By: Ramone Smiley on 09-27-2024 Calcium [Mass/Vol] 11.0 mg/dL High 8.5-10.1 [facility] Serum or plasma creatinine m easurement (mass/volume)Ordered By: Ramone Smiley on 09-27-2024 Creatinine [Mass/Vol] 0.86 mg/dL 0.55-1.02 [facility] Comment on above: The validity of the calculated GFR & GFRAA in patients over 70 years has not been determined. Clinical correlation is essential. Serum or plasma urea nitroge n measurement (mass/volume)Ordered By: Ramone Smiley on 09-27-2024 Urea nitrogen [Mass/Vol] 11 mg/dL 7-18 [facility] Sodium levelOrdered By: Ramone Smiley on 09-27-2024 Sodium [Moles/Vol] 138 mmol/L 136-145 [facility] Total proteinOrdered By: Lilliam Smiley on 09-27-2024 Protein [Mass/Vol] 8.0 g/dL 6.4-8.2 [facility] White blood cell (WBC) count Ordered By: Ramone Smiley on 09-27-2024 WBC (Bld) [#/Vol] 8.6 10*3/uL 4.4-11.0 [facility] Kidney and Bladderon 024 Kidney and Bladder Normal [facility] BNP,B-Type NATRIURETIC PEPTI Ishaan 06-19-2024 Natriuretic peptide B (Bld) [Mass/Vol] 81.6 pg/mL Normal 0-100 [facility] Comment on above: Performed By: #### L 500.2500, L503.6620, L100.0100 ####[facility] [address] [place], [address] Basic Metabolic Profile (BMP )on 06-19-2024 BUN/CRE 9.3 RATIO Low 06-19 [facility] Comment on above: Performed By: #### L 500.2500, L503.6620, L100.0100 ####[facility] [address] [place], [address] CA,Total 11.0 mg/dL High 8.5-10.1 [facility] Comment on above: Performed By: #### L 500.2500, L503.6620, L100.0100 ####[facility] [address] [place], [address] Chloride [Moles/Vol] 104 mmol/L Normal 98-107 [facility] Comment on above: Performed By: #### L 500.2500, L503.6620, L100.0100 ####[facility] [address] [place], [address] CO2 [Moles/Vol] 26.0 mmol/L Normal 21.0-32.0 [facility] Comment on above: Performed By: #### L 500.2500, L503.6620, L100.0100 ####[facility] [address] [place], [address] Creatinine [Mass/Vol] 1.08 mg/dL High 0.55-1.02 [facility] Comment on above: Result Comment: The validity of the calculated GFR GFRAA in patients over70 years has not been determined. Clinical correlation isessential. Performed By: #### L 500.2500, L503.6620, L100.0100 ####[facility] [address] [place], [address] EST GFR - AA 63 mL/min Normal >60 [facility] Comment on above: Result Comment: Afri can [place] GFR Calc Performed By: #### L 500.2500, L503.6620, L100.0100 ####[facility] [address] [place], [address] GAP 6 Normal 5-15 [facility] Comment on above: Performed By: #### L 500.2500, L503.6620, L100.0100 ####[facility] [address] [place], [address] GFR/1.73 sq M.predicted among non-blacks MDRD (S/P/Bld) [Vol rate/Area] 52 mL/min/{1.73_m2} Low >60 [facility] Comment on above: Result Comment: Non- GFR Calc Performed By: #### L 500.2500, L503.6620, L100.0100 ####[facility] [address] [place], [address] Glucose [Mass/Vol] 263 mg/dL High 74-106 [facility] Comment on above: Result Comment: Gluc ose result greater than or equal to 200 mg/dLsuggests DIABETES MELLITUS per A.D.A. criteria. Performed By: #### L 500.2500, L503.6620, L100.0100 ####[facility] [address] [place], [address] Potassium [Moles/Vol] 4.4 mmol/L Normal 3.5-5.1 [facility] Comment on above: Performed By: #### L 500.2500, L503.6620, L100.0100 ####[facility] [address] [place], [address] Sodium [Moles/Vol] 137 mmol/L Normal 136-145 [facility] Comment on above: Performed By: #### L 500.2500, L503.6620, L100.0100 ####[facility] [address] [place], [address] Urea nitrogen [Mass/Vol] 10 mg/dL Normal 7-18 [facility] Comment on above: Performed By: #### L 500.2500, L503.6620, L100.0100 ####[facility] [address] [place], [address] CBC W/Diff, Automatedon 10-2 0-4 Absolute Lymph 2.32 X10 3/uL Normal 0.83-4.51 [facility] Comment on above: Performed By: #### L 500.2500, L503.6620, L100.0100 ####[facility] [address] [place], [address] Absolute Neut 4.7 X10 3/uL Normal 2.0-7.7 [facility] Comment on above: Performed By: #### L 500.2500, L503.6620, L100.0100 ####[facility] [address] [place], [address] Basophils/100 WBC (Bld) 0.5 % Normal 0-1 [facility] Comment on above: Performed By: #### L 500.2500, L503.6620, L100.0100 ####[facility] [address] [place], [address] Eosinophils/100 WBC (Bld) 8.7 % High 0-5 [facility] Comment on above: Performed By: #### L 500.2500, L503.6620, L100.0100 ####[facility] [address] [place], [address] Erythrocyte distribution width (RBC) [Ratio] 16.6 % High 11.6-14.6 [facility] Comment on above: Performed By: #### L 500.2500, L503.6620, L100.0100 ####[facility] [address] [place], [address] Hematocrit (Bld) [Volume fraction] 36.6 % Low 37-47 [facility] Comment on above: Performed By: #### L 500.2500, L503.6620, L100.0100 ####[facility] [address] [place], [address] Hemoglobin (Bld) [Mass/Vol] 11.2 g/dL Low 12.0-15.0 [facility] Comment on above: Performed By: #### L 500.2500, L503.6620, L100.0100 ####[facility] [address] [place], [address] IG% 0.200 Normal 0.0-0.9 [facility] Comment on above: Result Comment: IG% - Immature Granulocytes (promyelocytes, myelocytes andmetamyelocytes) > 1% indicates that a LEFT SHIFT is Present. Performed By: #### L 500.2500, L503.6620, L100.0100 ####[facility] [address] [place], [address] Lymphocytes/100 WBC (Bld) 27.7 % Normal 19-41 [facility] Comment on above: Performed By: #### L 500.2500, L503.6620, L100.0100 ####[facility] [address] [place], [address] MCH (RBC) [Entitic mass] 25.6 pg Low 27.0-32.0 [facility] Comment on above: Performed By: #### L 500.2500, L503.6620, L100.0100 ####[facility] [address] [place], [address] MCHC (RBC) [Mass/Vol] 30.6 g/dL Low 32-36 [facility] Comment on above: Performed By: #### L 500.2500, L503.6620, L100.0100 ####[facility] [address] [place], [address] MCV (RBC) [Entitic vol] 83.8 fL Normal 81-99 [facility] Comment on above: Performed By: #### L 500.2500, L503.6620, L100.0100 ####[facility] [address] [place], [address] Monocytes/100 WBC (Bld) 6.7 % Normal 0-10 [facility] Comment on above: Performed By: #### L 500.2500, L503.6620, L100.0100 ####[facility] [address] [place], [address] Neutrophils/100 WBC (Bld) 56.2 % Normal 47-70 [facility] Comment on above: Performed By: #### L 500.2500, L503.6620, L100.0100 ####[facility] [address] [place], [address] Nucleated RBC (Bld) [#/Vol] 0 10*3/uL Normal 0-5 [facility] Comment on above: Performed By: #### L 500.2500, L503.6620, L100.0100 ####[facility] [address] [place], [address] Platelet mean volume (Bld) [Entitic vol] 10.4 fL Normal 6.2-12.0 [facility] Comment on above: Performed By: #### L 500.2500, L503.6620, L100.0100 ####[facility] [address] [place], [address] Platelets (Bld) [#/Vol] 234 10*3/uL Normal 150-450 [facility] Comment on above: Performed By: #### L 500.2500, L503.6620, L100.0100 ####[facility] [address] [place], [address] RBC (Bld) [#/Vol] 4.37 10*6/uL Normal 4.2-5.4 [facility] Comment on above: Performed By: #### L 500.2500, L503.6620, L100.0100 ####[facility] [address] [place], [address] RDW SD 50.9 fl High 35.1-43.9 [facility] Comment on above: Performed By: #### L 500.2500, L503.6620, L100.0100 ####[facility] [address] [place], [address] WBC (Bld) [#/Vol] 8.4 10*3/uL Normal 4.4-11.0 [facility] Comment on above: Performed By: #### L 500.2500, L503.6620, L100.0100 ####[facility] [address] [place], [address] Chest 1 View (Portable)on Chest 1 View (Portable) Normal [facility] Emergency Department Summary on 06-19-2024 Emergency Department Summary Normal [facility] 12 Lead EKGon 05-30-2024 12 Lead EKG Normal [facility] BNP,B-Type NATRIURETIC PEPTI Ishaan 05-30-2024 Natriuretic peptide B (Bld) [Mass/Vol] 108.0 pg/mL High 0-100 [facility] Comment on above: Performed By: #### L 100.0100, L503.6620, L500.2500, L501.4020 ####[facility] [address] [place], [address] Basic Metabolic Profile (BMP )on 05-30-2024 BUN/CRE 12.8 RATIO Normal 06-19 [facility] Comment on above: Order Comment: 'TROP ' Serial specimen #1, #2 or #3: 1 Performed By: #### L 100.0100, L503.6620, L500.2500, L501.4020 ####[facility] [address] [place], [address] CA,Total 11.4 mg/dL High 8.5-10.1 [facility] Comment on above: Order Comment: 'TROP ' Serial specimen #1, #2 or #3: 1 Performed By: #### L 100.0100, L503.6620, L500.2500, L501.4020 ####[facility] [address] [place], [address] Chloride [Moles/Vol] 104 mmol/L Normal 98-107 [facility] Comment on above: Order Comment: 'TROP ' Serial specimen #1, #2 or #3: 1 Performed By: #### L 100.0100, L503.6620, L500.2500, L501.4020 ####[facility] [address] [place], [address] CO2 [Moles/Vol] 28.0 mmol/L Normal 21.0-32.0 [facility] Comment on above: Order Comment: 'TROP ' Serial specimen #1, #2 or #3: 1 Performed By: #### L 100.0100, L503.6620, L500.2500, L501.4020 ####[facility] [address] [place], [address] Creatinine [Mass/Vol] 0.93 mg/dL Normal 0.55-1.02 [facility] Comment on above: Order Comment: 'TROP ' Serial specimen #1, #2 or #3: 1 Result Comment: The validity of the calculated GFR GFRAA in patients over70 years has not been determined. Clinical correlation isessential. Performed By: #### L 100.0100, L503.6620, L500.2500, L501.4020 ####[facility] [address] [place], [address] ECRCL 45.88 ml/min Normal [facility] Comment on above: Order Comment: 'TROP ' Serial specimen #1, #2 or #3: 1 Performed By: #### L 100.0100, L503.6620, L500.2500, L501.4020 ####[facility] [address] [place], [address] EST GFR - AA 74 mL/min Normal >60 [facility] Comment on above: Order Comment: 'TROP ' Serial specimen #1, #2 or #3: 1 Result Comment: Afri can [place] GFR Calc Performed By: #### L 100.0100, L503.6620, L500.2500, L501.4020 ####[facility] [address] [place], [address] GAP 7 Normal 5-15 [facility] Comment on above: Order Comment: 'TROP ' Serial specimen #1, #2 or #3: 1 Performed By: #### L 100.0100, L503.6620, L500.2500, L501.4020 ####[facility] [address] [place], [address] GFR/1.73 sq M.predicted among non-blacks MDRD (S/P/Bld) [Vol rate/Area] 61 mL/min/{1.73_m2} Normal >60 [facility] Comment on above: Order Comment: 'TROP ' Serial specimen #1, #2 or #3: 1 Result Comment: Non- GFR Calc Performed By: #### L 100.0100, L503.6620, L500.2500, L501.4020 ####[facility] [address] [place], [address] Glucose [Mass/Vol] 167 mg/dL High 74-106 [facility] Comment on above: Order Comment: 'TROP ' Serial specimen #1, #2 or #3: 1 Result Comment: Fast ing Glucose result greater than or equal to 126 mg/dLsuggests DIABETES MELLITUS per A.D.A. criteria. Performed By: #### L 100.0100, L503.6620, L500.2500, L501.4020 ####[facility] [address] [place], [address] Potassium [Moles/Vol] 4.0 mmol/L Normal 3.5-5.1 [facility] Comment on above: Order Comment: 'TROP ' Serial specimen #1, #2 or #3: 1 Performed By: #### L 100.0100, L503.6620, L500.2500, L501.4020 ####[facility] [address] [place], [address] Sodium [Moles/Vol] 138 mmol/L Normal 136-145 [facility] Comment on above: Order Comment: 'TROP ' Serial specimen #1, #2 or #3: 1 Performed By: #### L 100.0100, L503.6620, L500.2500, L501.4020 ####[facility] [address] [place], [address] Urea nitrogen [Mass/Vol] 12 mg/dL Normal 7-18 [facility] Comment on above: Order Comment: 'TROP ' Serial specimen #1, #2 or #3: 1 Performed By: #### L 100.0100, L503.6620, L500.2500, L501.4020 ####[facility] [address] [place], [address] CBC W/Diff, Automatedon 05-03 PLT EST ADEQUATE Normal ADEQ [facility] Comment on above: Performed By: #### L 100.0100, L503.6620, L500.2500, L501.4020 ####[facility] [address] [place], [address] Chest PA and Lateralon 05-30 Chest PA and Lateral Normal [facility] Emergency Department Summary on 05-30-2024 Emergency Department Summary Normal [facility] L501.4020on 05-30-2024 TROPONIN-I HS 12 pg/mL Normal 3.0-54.0 [facility] Comment on above: Order Comment: 'TROP ' Serial specimen #1, #2 or #3: 1 Result Comment: Sean reyes Note: New Test Units and Gender Specific Reference Ranges. For more information see Policy Stat Procedure Hatch High Sensitivity Troponin (TNIH) and attachments. Performed By: #### L 100.0100, L503.6620, L500.2500, L501.4020 ####[facility] [address] [place], [address] Inital Evaluation (1) - PTon 04-26-2024 Inital Evaluation (1) - PT Normal [facility] CBC W/Diff, Automatedon 03-31 Absolute Lymph 1.93 X10 3/uL Normal 0.83-4.51 [facility] Comment on above: Performed By: #### L 100.0100, L500.4050, L501.9985 ####[facility] [address] [place], [address] Absolute Neut 5.1 X10 3/uL Normal 2.0-7.7 [facility] Comment on above: Performed By: #### L 100.0100, L500.4050, L501.9985 ####[facility] [address] [place], [address] Basophils/100 WBC (Bld) 0.6 % Normal 0-1 [facility] Comment on above: Performed By: #### L 100.0100, L500.4050, L501.9985 ####[facility] [address] [place], [address] Eosinophils/100 WBC (Bld) 3.7 % Normal 0-5 [facility] Comment on above: Performed By: #### L 100.0100, L500.4050, L501.9985 ####[facility] [address] [place], [address] Erythrocyte distribution width (RBC) [Ratio] 16.0 % High 11.6-14.6 [facility] Comment on above: Performed By: #### L 100.0100, L500.4050, L501.9985 ####[facility] [address] [place], [address] Hematocrit (Bld) [Volume fraction] 34.9 % Low 37-47 [facility] Comment on above: Performed By: #### L 100.0100, L500.4050, L501.9985 ####[facility] [address] [place], [address] Hemoglobin (Bld) [Mass/Vol] 10.4 g/dL Low 12.0-15.0 [facility] Comment on above: Performed By: #### L 100.0100, L500.4050, L501.9985 ####[facility] [address] [place], [address] IG% 0.300 Normal 0.0-0.9 [facility] Comment on above: Result Comment: IG% - Immature Granulocytes (promyelocytes, myelocytes andmetamyelocytes) > 1% indicates that a LEFT SHIFT is Present. Performed By: #### L 100.0100, L500.4050, L501.9985 ####[facility] [address] [place], [address] Lymphocytes/100 WBC (Bld) 24.5 % Normal 19-41 [facility] Comment on above: Performed By: #### L 100.0100, L500.4050, L501.9985 ####[facility] [address] [place], [address] MCH (RBC) [Entitic mass] 24.4 pg Low 27.0-32.0 [facility] Comment on above: Performed By: #### L 100.0100, L500.4050, L501.9985 ####[facility] [address] [place], [address] MCHC (RBC) [Mass/Vol] 29.8 g/dL Low 32-36 [facility] Comment on above: Performed By: #### L 100.0100, L500.4050, L501.9985 ####[facility] [address] [place], [address] MCV (RBC) [Entitic vol] 81.9 fL Normal 81-99 [facility] Comment on above: Performed By: #### L 100.0100, L500.4050, L501.9985 ####[facility] [address] [place], [address] Monocytes/100 WBC (Bld) 6.8 % Normal 0-10 [facility] Comment on above: Performed By: #### L 100.0100, L500.4050, L501.9985 ####[facility] [address] [place], [address] Neutrophils/100 WBC (Bld) 64.1 % Normal 47-70 [facility] Comment on above: Performed By: #### L 100.0100, L500.4050, L501.9985 ####[facility] [address] [place], [address] Nucleated RBC (Bld) [#/Vol] 0 10*3/uL Normal 0-5 [facility] Comment on above: Performed By: #### L 100.0100, L500.4050, L501.9985 ####[facility] [address] [place], [address] Platelet mean volume (Bld) [Entitic vol] 10.7 fL Normal 6.2-12.0 [facility] Comment on above: Performed By: #### L 100.0100, L500.4050, L501.9985 ####[facility] [address] [place], [address] Platelets (Bld) [#/Vol] 294 10*3/uL Normal 150-450 [facility] Comment on above: Performed By: #### L 100.0100, L500.4050, L501.9985 ####[facility] [address] [place], [address] RBC (Bld) [#/Vol] 4.26 10*6/uL Normal 4.2-5.4 [facility] Comment on above: Performed By: #### L 100.0100, L500.4050, L501.9985 ####[facility] [address] [place], [address] RDW SD 48.0 fl High 35.1-43.9 [facility] Comment on above: Performed By: #### L 100.0100, L500.4050, L501.9985 ####[facility] [address] [place], [address] WBC (Bld) [#/Vol] 7.9 10*3/uL Normal 4.4-11.0 [facility] Comment on above: Performed By: #### L 100.0100, L500.4050, L501.9985 ####[facility] [address] [place], [address] Comprehensive Metabolic Prof ilon 04-18-2024 Albumin [Mass/Vol] 3.0 g/dL Low 3.2-5.0 [facility] Comment on above: Performed By: #### L 100.0100, L500.4050, L501.9985 ####[facility] [address] [place], [address] Albumin/Globulin [Mass ratio] 0.6 {ratio} Low 0.9-2.4 [facility] Comment on above: Performed By: #### L 100.0100, L500.4050, L501.9985 ####[facility] [address] [place], [address] ALK P 130 U/L High 45-117 [facility] Comment on above: Performed By: #### L 100.0100, L500.4050, L501.9985 ####[facility] [address] [place], [address] ALT [Catalytic activity/Vol] 14 U/L Normal 13-56 [facility] Comment on above: Performed By: #### L 100.0100, L500.4050, L501.9985 ####[facility] [address] [place], [address] AST [Catalytic activity/Vol] 22 U/L Normal 15-37 [facility] Comment on above: Performed By: #### L 100.0100, L500.4050, L501.9985 ####[facility] [address] [place], [address] Bilirubin [Mass/Vol] 0.30 mg/dL Normal 0.20-1.00 [facility] Comment on above: Result Comment: For patients on eltrombopag therapy, use of Dimension Hatch TBIL is not recommended. Performed By: #### L 100.0100, L500.4050, L501.9985 ####[facility] [address] [place], [address] BUN/CRE 12.5 RATIO Normal 10-20 [facility] Comment on above: Performed By: #### L 100.0100, L500.4050, [id number] ####[facility] [address] [place], [address] CA,Total 11.0 mg/dL High 8.5-10.1 [facility] Comment on above: Performed By: #### L 100.0100, L500.4050, [id number] ####[facility] [address] [place], [address] Chloride [Moles/Vol] 101 mmol/L Normal 98-107 [facility] Comment on above: Performed By: #### L 100.0100, L500.4050, [id number] ####[facility] [address] [place], [address] CO2 [Moles/Vol] 26.0 mmol/L Normal 21.0-32.0 [facility] Comment on above: Performed By: #### L 100.0100, L500.4050, [id number] ####[facility] [address] [place], [address] Creatinine [Mass/Vol] 0.96 mg/dL Normal 0.55-1.02 [facility] Comment on above: Result Comment: The validity of the calculated GFR GFRAA in patients over70 years has not been determined. Clinical correlation isessential. Performed By: #### L 100.0100, L500.4050, [id number] ####[facility] [address] [place], [address] EST GFR - AA 72 mL/min Normal >60 [facility] Comment on above: Result Comment: Afri can [place] GFR Calc Performed By: #### L 100.0100, L500.4050, [id number] ####[facility] [address] [place], [address] GAP 6 Normal 5-15 [facility] Comment on above: Performed By: #### L 100.0100, L500.4050, [id number] ####[facility] [address] [place], [address] GFR/1.73 sq M.predicted among non-blacks MDRD (S/P/Bld) [Vol rate/Area] 59 mL/min/{1.73_m2} Low >60 [facility] Comment on above: Result Comment: Non- GFR Calc Performed By: #### L 100.0100, L500.4050, [id number] ####[facility] [address] [place], [address] Globulin (S) [Mass/Vol] 5.4 g/dL High 2.2-4.2 [facility] Comment on above: Performed By: #### L 100.0100, L500.4050, [id number] ####[facility] [address] [place], [address] Glucose [Mass/Vol] 142 mg/dL High 74-106 [facility] Comment on above: Result Comment: Fast ing Glucose result greater than or equal to 126 mg/dLsuggests DIABETES MELLITUS per A.D.A. criteria. Performed By: #### L 100.0100, L500.4050, [id number] ####[facility] [address] [place], [address] Potassium [Moles/Vol] 3.5 mmol/L Normal 3.5-5.1 [facility] Comment on above: Performed By: #### L 100.0100, L500.4050, [id number] ####[facility] [address] [place], [address] Sodium [Moles/Vol] 133 mmol/L Low 136-145 [facility] Comment on above: Performed By: #### L 100.0100, L500.4050, [id number] ####[facility] [address] [place], [address] T PROT 8.4 g/dL High 6.4-8.2 [facility] Comment on above: Performed By: #### L 100.0100, L500.4050, [id number] ####[facility] [address] [place], [address] Urea nitrogen [Mass/Vol] 12 mg/dL Normal 7-18 [facility] Comment on above: Performed By: #### L 100.0100, L500.4050, [id number] ####[facility] [address] [place], [address] Hemoglobin A1con 04-18-2024 HbA1c (Bld) [Mass fraction] 8.2 % High 3.8-5.6 [facility] Comment on above: Result Comment: Norm al < 5.7 % Prediabetic 5.7 - 6.4 % Diabetic >or= 6.5 % Please note range changes. Performed By: #### L 100.0100, L500.4050, [id number] ####[facility] [address] [place], [address] Inital Evaluation (1) - PTon 03-10-2024 Inital Evaluation (1) - PT Normal [facility] SCRN MAMM (CAD)W/CEASAR BILATo n 03-01-2024 SCRN MAMM (CAD)W/CEASAR BILAT Normal [facility] Dexa Bone Density/Append Ske guillermo 02-23-2024 Dexa Bone Density/Append Skel Normal [facility] Absolute lymphocyte countOrd ered By: Sunny Bell on 12-30-2023 Lymphocytes Auto (Unsp spec) [#/Vol] 2.48 10*3/uL 0.83-4.51 [facility] Automated lymphocyte count a s percentage of total leukocytesOrdered By: Sunny Bell on 12-30-2023 Lymphocytes/100 WBC Auto (Unsp spec) 25.3 % 19-41 [facility] Basophil percentageOrdered B y: Sunny Bell on 12-30-2023 Basophils/100 WBC (Bld) 0.3 % 0-1 [facility] Chloride [Moles/Vol] 104 mmol/L 98-107 [facility] Eosinophils/100 WBC (Bld) 1.4 % 0-5 [facility] Glucose [Mass/Vol] 127 mg/dL 74-106 [facility] Comment on above: Fasting Glucose resu lt greater than or equal to 126 mg/dL suggests DIABETES MELLITUS per A.D.A. criteria. Hemoglobin (Bld) [Mass/Vol] 10.7 g/dL 12.0-15.0 [facility] Monocytes/100 WBC (Bld) 8.7 % 0-10 [facility] Neutrophils (Bld) [#/Vol] 6.3 10*3/uL 2.0-7.7 [facility] Neutrophils/100 WBC (Bld) 63.9 % 47-70 [facility] Potassium [Moles/Vol] 4.4 mmol/L 3.5-5.1 [facility] Sodium [Moles/Vol] 135 mmol/L 136-145 [facility] WBC (Bld) [#/Vol] 9.8 10*3/uL 4.4-11.0 [facility] Determination of erythrocyte mean corpuscular volume (MCV)Ordered By: Sunny Bell on 12-30-2023 MCV (RBC) [Entitic vol] 84.9 fL 81-99 [facility] Erythrocyte distribution wid th ratioOrdered By: Sunny Bell on 12-30-2023 Erythrocyte distribution width (RBC) [Ratio] 15.5 % 11.6-14.6 [facility] Erythrocyte distribution wid th standard deviationOrdered By: Sunny Bell on 12-30-2023 Erythrocyte distribution width (RBC) [Entitic vol] 47.9 fL 35.1-43.9 [facility] Hematocrit Auto (Bld) [Volum e fraction]Ordered By: Sunny Bell on 12-30-2023 Hematocrit (Bld) [Volume fraction] 33.8 % 37-47 [facility] Immature granulocytes/100 WB C Auto (Bld)Ordered By: Sunny Bell on 12-30-2023 Immature granulocytes/100 WBC (Bld) 0.400 % 0.0-0.9 [facility] Comment on above: IG% - Immature Granu locytes (promyelocytes, myelocytes and metamyelocytes) > 1% indicates that a LEFT SHIFT is Present. Laboratory - Chemistry and C hemistry - challengeOrdered By: Sunny Bell on 12-30-2023 CO2 [Moles/Vol] 27.0 mmol/L 21.0-32.0 [facility] Urea nitrogen/Creatinine [Mass ratio] 21.3 mg/mg 10-20 [facility] Laboratory - Hematology and Cell countsOrdered By: Sunny Bell on 12-30-2023 MCH (RBC) [Entitic mass] 26.9 pg 27.0-32.0 [facility] MCHC (RBC) [Mass/Vol] 31.7 g/dL 32-36 [facility] Nucleated RBC/100 WBC (Bld) [Ratio] 0 % 0-5 [facility] Platelet mean volume (Bld) [Entitic vol] 11.3 fL 6.2-12.0 [facility] Platelets (Bld) [#/Vol] 191 10*3/uL 150-450 [facility] No Panel InformationOrdered By: Sunny Bell on 12-30-2023 Estimated Creatinine Clearance Calc 40.01 ml/min [facility] Estimated GFR (MDRD) Amer 63 mL/min >60 [facility] Comment on above: GFR Calc Estimated GFR (MDRD) Non-Af Amer 52 mL/min >60 [facility] Comment on above: Non- GFR Calc RBC Auto (Bld) [#/Vol]Ordere d By: Sunny Bell on 12-30-2023 RBC (Bld) [#/Vol] 3.98 10*6/uL 4.2-5.4 [facility] Serum or plasma calcium melanie urement (mass/volume)Ordered By: Sunny Bell on 12-30-2023 Calcium [Mass/Vol] 11.3 mg/dL 8.5-10.1 [facility] Serum or plasma creatinine m easurement (mass/volume)Ordered By: Sunny Bell on 12-30-2023 Creatinine [Mass/Vol] 1.08 mg/dL 0.55-1.02 [facility] Comment on above: The validity of the calculated GFR & GFRAA in patients over 70 years has not been determined. Clinical correlation is essential. Serum or plasma urea nitroge n measurement (mass/volume)Ordered By: Sunny Bell on 12-30-2023 Urea nitrogen [Mass/Vol] 23 mg/dL 7-18 [facility] Thin prep Papanicolaou smear with manual screeningOrdered By: Sunny Bell on 12-30-2023 Thin prep Papanicolaou smear with manual screening 78 mg/dL 74-106 [facility] Comment on above: MANAGEMENT OF PATIEN T CARE PER NURSING PROTOCOL Thin prep Papanicolaou smear with manual screening 4 5-15 [facility] Basophil percentageOrdered B y: Sunny Bell on 12-28-2023 Basophil percentage 3.0 mg/dL 2.5-4.9 [facility] No Panel InformationOrdered By: Nestor Bartlett on 12-28-2023 Parathyroid Hormone (Intact) 177.6 pg/mL 18.4-80.1 [facility] Absolute lymphocyte countOrd ered By: Queta Cortez on 12-27-2023 Lymphocytes Auto (Unsp spec) [#/Vol] 3.04 10*3/uL 0.83-4.51 [facility] Activated partial thrombopla stin time (aPTT) in platelet poor plasma by coagulation aOrdered By: Queta Cortez on 12-27-2023 aPTT Coag (PPP) [Time] 27.3 s 24.1-36.2 [facility] Automated lymphocyte count a s percentage of total leukocytesOrdered By: Queta Cortez on 12-27-2023 Lymphocytes/100 WBC Auto (Unsp spec) 37.1 % 19-41 [facility] Basophil percentageOrdered B y: Queta Cortez on 12-27-2023 Basophils/100 WBC (Bld) 0.5 % 0-1 [facility] Chloride [Moles/Vol] 103 mmol/L 98-107 [facility] Eosinophils/100 WBC (Bld) 3.1 % 0-5 [facility] Glucose [Mass/Vol] 254 mg/dL 74-106 [facility] Comment on above: Glucose result great er than or equal to 200 mg/dLsuggests DIABETES MELLITUS per A.D.A. criteria. Hemoglobin (Bld) [Mass/Vol] 12.4 g/dL 12.0-15.0 [facility] Monocytes/100 WBC (Bld) 6.6 % 0-10 [facility] Neutrophils (Bld) [#/Vol] 4.2 10*3/uL 2.0-7.7 [facility] Neutrophils/100 WBC (Bld) 51.7 % 47-70 [facility] Potassium [Moles/Vol] 4.2 mmol/L 3.5-5.1 [facility] Sodium [Moles/Vol] 136 mmol/L 136-145 [facility] WBC (Bld) [#/Vol] 8.2 10*3/uL 4.4-11.0 [facility] Determination of erythrocyte mean corpuscular volume (MCV)Ordered By: Queta Cortez on 12-27-2023 MCV (RBC) [Entitic vol] 85.2 fL 81-99 [facility] Erythrocyte distribution wid th ratioOrdered By: Queta Cortez on 12-27-2023 Erythrocyte distribution width (RBC) [Ratio] 15.5 % 11.6-14.6 [facility] Erythrocyte distribution wid th standard deviationOrdered By: Queta Cortez on 12-27-2023 Erythrocyte distribution width (RBC) [Entitic vol] 47.0 fL 35.1-43.9 [facility] Hematocrit Auto (Bld) [Volum e fraction]Ordered By: Queta Cortez on 12-27-2023 Hematocrit (Bld) [Volume fraction] 39.8 % 37-47 [facility] Immature granulocytes/100 WB C Auto (Bld)Ordered By: Queta Cortez on 12-27-2023 Immature granulocytes/100 WBC (Bld) 1.000 % 0.0-0.9 [facility] Comment on above: IG% - Immature Granu locytes (promyelocytes, myelocytes and metamyelocytes) > 1% indicates that a LEFT SHIFT is Present. Laboratory - Chemistry and C hemistry - challengeOrdered By: Queta Cortez on 12-27-2023 CO2 [Moles/Vol] 29.0 mmol/L 21.0-32.0 [facility] Urea nitrogen/Creatinine [Mass ratio] 18.5 mg/mg 10-20 [facility] Laboratory - CoagulationOrde red By: Queta Cortez on 12-27-2023 INR Coag (Bld) [Relative time] 1.1 {INR} [facility] PT Coag (PPP) [Time] 13.7 s 11.7-14.9 [facility] Laboratory - Hematology and Cell countsOrdered By: Queta Cortez on 12-27-2023 MCH (RBC) [Entitic mass] 26.6 pg 27.0-32.0 [facility] MCHC (RBC) [Mass/Vol] 31.2 g/dL 32-36 [facility] Nucleated RBC/100 WBC (Bld) [Ratio] 0 % 0-5 [facility] Platelet mean volume (Bld) [Entitic vol] 11.5 fL 6.2-12.0 [facility] Platelets (Bld) [#/Vol] 237 10*3/uL 150-450 [facility] No Panel InformationOrdered By: Queta Cortez on 12-27-2023 Estimated Creatinine Clearance Calc 37.33 ml/min [facility] Estimated GFR (MDRD) Amer 56 mL/min >60 [facility] Comment on above: GFR Calc Estimated GFR (MDRD) Non-Af Amer 46 mL/min >60 [facility] Comment on above: Non- GFR Calc RBC Auto (Bld) [#/Vol]Ordere d By: Queta Cortez on 12-27-2023 RBC (Bld) [#/Vol] 4.67 10*6/uL 4.2-5.4 [facility] Serum or plasma calcium melanie urement (mass/volume)Ordered By: Queta Cortez on 12-27-2023 Calcium [Mass/Vol] 11.2 mg/dL 8.5-10.1 [facility] Serum or plasma creatinine m easurement (mass/volume)Ordered By: Queta Cortez on 12-27-2023 Creatinine [Mass/Vol] 1.19 mg/dL 0.55-1.02 [facility] Comment on above: The validity of the calculated GFR & GFRAA in patients over 70 years has not been determined. Clinical correlation is essential. Serum or plasma urea nitroge n measurement (mass/volume)Ordered By: Queta Cortez on 12-27-2023 Urea nitrogen [Mass/Vol] 22 mg/dL 7-18 [facility] Thin prep Papanicolaou smear with manual screeningOrdered By: Queta Cortez on 12-27-2023 Thin prep Papanicolaou smear with manual screening 4 5-15 [facility] Whole blood hemoglobin A1c/t otal hemoglobin ratio (mass fraction)Ordered By: Nestor Bartlett on 12-27-2023 HbA1c (Bld) [Mass fraction] 9.4 % 3.8-5.6 [facility] Comment on above: Normal < 5.7 % Predi abetic 5.7 - 6.4 % Diabetic >or= 6.5 % Please note range changes. Absolute lymphocyte countOrd ered By: Ramone Smiley on 10-26-2023 Lymphocytes Auto (Unsp spec) [#/Vol] 2.86 10*3/uL 0.83-4.51 [facility] Automated lymphocyte count a s percentage of total leukocytesOrdered By: Ramone Smiley on 10-26-2023 Lymphocytes/100 WBC Auto (Unsp spec) 31.9 % 19-41 [facility] Basophil percentageOrdered B y: Ramone Smiley on 10-26-2023 Basophils/100 WBC (Bld) 0.6 % 0-1 [facility] Bilirubin [Mass/Vol] 0.30 mg/dL 0.20-1.00 [facility] Comment on above: For patients on eltr ombopag therapy, use of Dimension Hatch TBIL is not recommended. Chloride [Moles/Vol] 101 mmol/L 98-107 [facility] Eosinophils/100 WBC (Bld) 2.6 % 0-5 [facility] Glucose [Mass/Vol] 135 mg/dL 74-106 [facility] Comment on above: Fasting Glucose resu lt greater than or equal to 126 mg/dL suggests DIABETES MELLITUS per A.D.A. criteria. Hemoglobin (Bld) [Mass/Vol] 10.9 g/dL 12.0-15.0 [facility] Monocytes/100 WBC (Bld) 8.0 % 0-10 [facility] Neutrophils (Bld) [#/Vol] 5.1 10*3/uL 2.0-7.7 [facility] Neutrophils/100 WBC (Bld) 56.6 % 47-70 [facility] Potassium [Moles/Vol] 4.5 mmol/L 3.5-5.1 [facility] Protein [Mass/Vol] 8.6 g/dL 6.4-8.2 [facility] Sodium [Moles/Vol] 134 mmol/L 136-145 [facility] WBC (Bld) [#/Vol] 9.0 10*3/uL 4.4-11.0 [facility] Determination of erythrocyte mean corpuscular volume (MCV)Ordered By: Ramone Smiley on 10-26-2023 MCV (RBC) [Entitic vol] 85.8 fL 81-99 [facility] Erythrocyte distribution wid th ratioOrdered By: Ramone Smiley on 10-26-2023 Erythrocyte distribution width (RBC) [Ratio] 17.5 % 11.6-14.6 [facility] Erythrocyte distribution wid th standard deviationOrdered By: Ramone Smiley on 10-26-2023 Erythrocyte distribution width (RBC) [Entitic vol] 55.2 fL 35.1-43.9 [facility] Hematocrit Auto (Bld) [Volum e fraction]Ordered By: Ramone Smiley on 10-26-2023 Hematocrit (Bld) [Volume fraction] 36.2 % 37-47 [facility] Immature granulocytes/100 WB C Auto (Bld)Ordered By: Ramone Smiley on 10-26-2023 Immature granulocytes/100 WBC (Bld) 0.300 % 0.0-0.9 [facility] Comment on above: IG% - Immature Granu locytes (promyelocytes, myelocytes and metamyelocytes) > 1% indicates that a LEFT SHIFT is Present. Laboratory - Chemistry and C hemistry - challengeOrdered By: Ramone Smiley on 10-26-2023 Albumin/Globulin [Mass ratio] 0.6 {ratio} 0.9-2.4 [facility] ALP [Catalytic activity/Vol] 109 U/L 45-117 [facility] ALT [Catalytic activity/Vol] 17 U/L 13-56 [facility] CO2 [Moles/Vol] 27.0 mmol/L 21.0-32.0 [facility] Cobalamin (Vitamin B12) [Mass/Vol] 654 pg/mL 211-911 [facility] Ferritin [Mass/Vol] 99 ng/mL 8-252 [facility] Globulin (S) [Mass/Vol] 5.4 g/dL 2.2-4.2 [facility] Urea nitrogen/Creatinine [Mass ratio] 17.6 mg/mg 10-20 [facility] Laboratory - Hematology and Cell countsOrdered By: Ramone Smiley on 10-26-2023 MCH (RBC) [Entitic mass] 25.8 pg 27.0-32.0 [facility] MCHC (RBC) [Mass/Vol] 30.1 g/dL 32-36 [facility] Nucleated RBC/100 WBC (Bld) [Ratio] 0 % 0-5 [facility] Platelet mean volume (Bld) [Entitic vol] 11.6 fL 6.2-12.0 [facility] Platelets (Bld) [#/Vol] 268 10*3/uL 150-450 [facility] No Panel InformationOrdered By: Ramone Smiley on 10-26-2023 Estimated GFR (MDRD) Amer 67 mL/min >60 [facility] Comment on above: GFR Calc Estimated GFR (MDRD) Non-Af Amer 55 mL/min >60 [facility] Comment on above: Non- GFR Calc Folate 23.70 ng/mL 3.1-55.4 [facility] Vitamin D 25-Hydroxy 34.5 ng/mL [facility] Comment on above: Vitamin D 25(OH) Sta tus Range Deficiency <20 ng/mL (50nmol/L) Insufficiency 20 - 30 ng/mL (50 - 75 nmol/L) Sufficiency 30 - 100 ng/mL (75 - 250 nmol/L) Toxicity >100 ng/mL (>250 nmol/L) RBC Auto (Bld) [#/Vol]Ordere d By: Ramone Smiley on 10-26-2023 RBC (Bld) [#/Vol] 4.22 10*6/uL 4.2-5.4 [facility] Serum or plasma calcium melanie urement (mass/volume)Ordered By: Ramone Smiley on 10-26-2023 Calcium [Mass/Vol] 11.2 mg/dL 8.5-10.1 [facility] Serum or plasma creatinine m easurement (mass/volume)Ordered By: Ramone Smiley on 10-26-2023 Creatinine [Mass/Vol] 1.02 mg/dL 0.55-1.02 [facility] Comment on above: The validity of the calculated GFR & GFRAA in patients over 70 years has not been determined. Clinical correlation is essential. Serum or plasma thyroid stim ulating hormone (TSH) measurement (units/volume)Ordered By: Ramone Smiley on 10-26-2023 TSH Qn 0.66 uIU/mL 0.358-3.74 [facility] Serum or plasma urea nitroge n measurement (mass/volume)Ordered By: Ramone Smiley on 10-26-2023 Urea nitrogen [Mass/Vol] 18 mg/dL 7-18 [facility] Thin prep Papanicolaou smear with manual screeningOrdered By: Ramone Smiley on 10-26-2023 Thin prep Papanicolaou smear with manual screening 3.2 g/dL 3.2-5.0 [facility] Thin prep Papanicolaou smear with manual screening 18 U/L 15-37 [facility] Thin prep Papanicolaou smear with manual screening 6 5-15 [facility] Whole blood hemoglobin A1c/t otal hemoglobin ratio (mass fraction)Ordered By: Ramone Smiley on 10-26-2023 HbA1c (Bld) [Mass fraction] 8.2 % 3.8-5.6 [facility] Comment on above: Normal < 5.7 % Predi abetic 5.7 - 6.4 % Diabetic >or= 6.5 % Please note range changes. Basophil percentageOrdered B y: Nestor Bartlett on 08-17-2023 Chloride [Moles/Vol] 105 mmol/L 98-107 [facility] Glucose [Mass/Vol] 167 mg/dL 74-106 [facility] Comment on above: Fasting Glucose resu lt greater than or equal to 126 mg/dL suggests DIABETES MELLITUS per A.D.A. criteria. Potassium [Moles/Vol] 4.9 mmol/L 3.5-5.1 [facility] Sodium [Moles/Vol] 139 mmol/L 136-145 [facility] WBC (Bld) [#/Vol] 8.4 10*3/uL 4.4-11.0 [facility] Blood erythrocytes count (nu mber/volume)Ordered By: Nestor Bartlett on 08-17-2023 RBC (Bld) [#/Vol] 3.41 10*6/uL 4.2-5.4 [facility] Blood hemoglobin measurement (mass/volume)Ordered By: Nestor Bartlett on 08-17-2023 Hemoglobin (Bld) [Mass/Vol] 8.9 g/dL 12.0-15.0 [facility] Blood platelet mean volumeOr dered By: Nestor Bartlett on 08-17-2023 Platelet mean volume (Bld) [Entitic vol] 10.4 fL 6.2-12.0 [facility] Determination of erythrocyte mean corpuscular volume (MCV)Ordered By: Nestor Bartlett on 08-17-2023 MCV (RBC) [Entitic vol] 84.5 fL 81-99 [facility] Glucose Glucometer (BldC) [M ass/Vol]Ordered By: Sandeep Denson on 08-17-2023 Glucose [Mass/Vol] 267 mg/dL 74-106 [facility] Comment on above: MANAGEMENT OF PATIEN T CARE PER NURSING PROTOCOL Hematocrit Auto (Bld) [Volum e fraction]Ordered By: Nsetor Bartlett on 08-17-2023 Hematocrit (Bld) [Volume fraction] 28.8 % 37-47 [facility] Laboratory - Chemistry and C hemistry - challengeOrdered By: Nestor Bartlett on 08-17-2023 CO2 [Moles/Vol] 30.0 mmol/L 21.0-32.0 [facility] Urea nitrogen/Creatinine [Mass ratio] 19.9 mg/mg 10-20 [facility] Laboratory - Hematology and Cell countsOrdered By: Nestor Bartlett on 08-17-2023 Erythrocyte distribution width (RBC) [Entitic vol] 55.6 fL 35.1-43.9 [facility] Erythrocyte distribution width (RBC) [Ratio] 17.9 % 11.6-14.6 [facility] MCH (RBC) [Entitic mass] 26.1 pg 27.0-32.0 [facility] MCHC Auto (RBC) [Mass/Vol]Or dered By: Nestor Bartlett on 08-17-2023 MCHC (RBC) [Mass/Vol] 30.9 g/dL 32-36 [facility] No Panel InformationOrdered By: Nestor Bartlett on 08-17-2023 Estimated Creatinine Clearance Calc 41.47 ml/min [facility] Estimated GFR (MDRD) Amer 77 mL/min >60 [facility] Comment on above: GFR Calc Estimated GFR (MDRD) Non-Af Amer 64 mL/min >60 [facility] Comment on above: Non- GFR Calc Platelets bldOrdered By: Neida Bartlett on 08-17-2023 Platelets (Bld) [#/Vol] 480 10*3/uL 150-450 [facility] Serum or plasma calcium melanie urement (mass/volume)Ordered By: Nestor Bartlett on 08-17-2023 Calcium [Mass/Vol] 10.6 mg/dL 8.5-10.1 [facility] Serum or plasma creatinine m easurement (mass/volume)Ordered By: Nestor Bartlett on 08-17-2023 Creatinine [Mass/Vol] 0.91 mg/dL 0.55-1.02 [facility] Comment on above: The validity of the calculated GFR & GFRAA in patients over 70 years has not been determined. Clinical correlation is essential. Serum or plasma urea nitroge n measurement (mass/volume)Ordered By: Nestor Bartlett on 08-17-2023 Urea nitrogen [Mass/Vol] 18 mg/dL - [facility] Thin prep Papanicolaou smear with manual screeningOrdered By: Nestor Bartlett on 08-17-2023 Thin prep Papanicolaou smear with manual screening 4 5-15 [facility] Absolute lymphocyte countOrd ered By: Heydi Amaya on 08-14-2023 Lymphocytes Auto (Unsp spec) [#/Vol] 1.25 10*3/uL 0.83-4.51 [facility] Basophil percentageOrdered B y: Heydi Amaya on 08-14-2023 Basophil percentage 1.7 mg/dL 2.5-4.9 [facility] Basophils/100 WBC (Bld) 0.3 % 0-1 [facility] Eosinophils/100 WBC (Bld) 0.6 % 0-5 [facility] Neutrophils (Bld) [#/Vol] 9.0 10*3/uL 2.0-7.7 [facility] Neutrophils/100 WBC (Bld) 79.7 % 47-70 [facility] Blood lymphocytes/100 leukoc ytesOrdered By: Heydi Amaya on 08-14-2023 Lymphocytes/100 WBC (Bld) 11.1 % 19-41 [facility] Blood monocytes/100 leukocyt esOrdered By: Heydi Amaya on 08-14-2023 Monocytes/100 WBC (Bld) 6.1 % 0-10 [facility] Iron measurement (mass/mass) Ordered By: Nestor Bartlett on 08-14-2023 Iron (Unsp spec) [Mass/Mass] 14 ug/dL 50-170 [facility] Laboratory - Chemistry and C hemistry - challengeOrdered By: Nestor Bartlett on 08-14-2023 Cobalamin (Vitamin B12) [Mass/Vol] 250 pg/mL 211-911 [facility] Laboratory - Chemistry and C hemistry - challengeOrdered By: Heydi Amaya on 08-14-2023 Free T4 [Mass/Vol] 1.51 ng/dL 0.76-1.46 [facility] Magnesium [Mass/Vol] 2.1 mg/dL 1.6-2.6 [facility] Laboratory - Hematology and Cell countsOrdered By: Heydi Amaya on 08-14-2023 Immature granulocytes/100 WBC (Bld) 2.200 % 0.0-0.9 [facility] Comment on above: IG% - Immature Granu locytes (promyelocytes, myelocytes and metamyelocytes) > 1% indicates that a LEFT SHIFT is Present. Nucleated RBC/100 WBC (Bld) [Ratio] 0 % 0-5 [facility] No Panel InformationOrdered By: Heydi Amaya on 08-14-2023 Free Triiodothyronine (T3) pg/dL 1.9 pg/mL 2.18-3.98 [facility] Parathyroid Hormone (Intact) 153.7 pg/mL 18.4-80.1 [facility] Thyroid Stimulating Hormone (TSH) 0.01 uIU/mL 0.358-3.74 [facility] Vitamin D 25-Hydroxy 39.9 ng/mL [facility] Comment on above: Vitamin D 25(OH) Sta tus Range Deficiency <20 ng/mL (50nmol/L) Insufficiency 20 - 30 ng/mL (50 - 75 nmol/L) Sufficiency 30 - 100 ng/mL (75 - 250 nmol/L) Toxicity >100 ng/mL (>250 nmol/L) No Panel InformationOrdered By: Nestor Bartlett on 08-14-2023 Total Iron Binding Capacity 197 ug/dL 250-450 [facility] Serum or plasma ferritin rubina surement (mass/volume)Ordered By: Nestor Bartlett on 08-14-2023 Ferritin [Mass/Vol] 1578 ng/mL 8-252 [facility] Serum or plasma folate measu rement (mass/volume)Ordered By: Nestor Bartlett on 08-14-2023 Folate [Mass/Vol] 2.90 ng/mL 3.1-55.4 [facility] Serum or plasma iron saturat ion measurement (mass fraction)Ordered By: Nestor Bartlett on 08-14-2023 Iron saturation [Mass fraction] 7.1 % 15.0-55.0 [facility] Thin prep Papanicolaou smear with manual screeningOrdered By: Heydi Amaya on 08-14-2023 Thin prep Papanicolaou smear with manual screening 285 mOsm/KG 280-301 [facility] Absolute lymphocyte countOrd ered By: Robert Allison on 08-13-2023 Lymphocytes Auto (Unsp spec) [#/Vol] 1.37 10*3/uL 0.83-4.51 [facility] Basophil percentageOrdered B y: Harriet Keegan on 08-13-2023 Basophil percentage 10-25 SEEN /hpf 0-5 [facility] Lactate [Moles/Vol] 1.2 mmol/L 0.4-2.0 [facility] Basophils/100 WBC (Bld) 0.3 % 0-1 [facility] Bilirubin [Mass/Vol] 0.60 mg/dL 0.20-1.00 [facility] Comment on above: For patients on eltr ombopag therapy, use of Dimension Hatch TBIL is not recommended. Chloride [Moles/Vol] 92 mmol/L 98-107 [facility] Eosinophils/100 WBC (Bld) 0.1 % 0-5 [facility] Glucose [Mass/Vol] 212 mg/dL 74-106 [facility] Comment on above: Glucose result great er than or equal to 200 mg/dLsuggests DIABETES MELLITUS per A.D.A. criteria. Neutrophils (Bld) [#/Vol] 12.1 10*3/uL 2.0-7.7 [facility] Neutrophils/100 WBC (Bld) 82.7 % 47-70 [facility] Potassium [Moles/Vol] 3.8 mmol/L 3.5-5.1 [facility] Comment on above: Moderate Hemolysis, Result may be falsely increased. Protein [Mass/Vol] 7.8 g/dL 6.4-8.2 [facility] Sodium [Moles/Vol] 127 mmol/L 136-145 [facility] WBC (Bld) [#/Vol] 14.7 10*3/uL 4.4-11.0 [facility] Bilirubin Test strip Ql (U)O rdered By: Robert Allison on 08-13-2023 Bilirubin Ql (U) Negative Negative [facility] Blood erythrocytes count (nu mber/volume)Ordered By: Robert Allison on 08-13-2023 RBC (Bld) [#/Vol] 3.83 10*6/uL 4.2-5.4 [facility] Blood hemoglobin measurement (mass/volume)Ordered By: Robert Allison on 08-13-2023 Hemoglobin (Bld) [Mass/Vol] 10.0 g/dL 12.0-15.0 [facility] Blood lymphocytes/100 leukoc ytesOrdered By: Robert Allison on 08-13-2023 Lymphocytes/100 WBC (Bld) 9.4 % 19-41 [facility] Blood monocytes/100 leukocyt esOrdered By: Robert Allison on 08-13-2023 Monocytes/100 WBC (Bld) 6.1 % 0-10 [facility] Blood platelet mean volumeOr dered By: Robert Allison on 08-13-2023 Platelet mean volume (Bld) [Entitic vol] 10.8 fL 6.2-12.0 [facility] Culture, urineOrdered By: Ester Allison on 08-13-2023 Bacteria identified Cx Nom (U) Klebsiella pneumoniae sp pneum [facility] Determination of erythrocyte mean corpuscular volume (MCV)Ordered By: Robert Allison on 08-13-2023 MCV (RBC) [Entitic vol] 85.1 fL 81-99 [facility] Hematocrit Auto (Bld) [Volum e fraction]Ordered By: Robert Allison on 08-13-2023 Hematocrit (Bld) [Volume fraction] 32.6 % 37-47 [facility] Influenza virus A and B and SARS-CoV-2 (COVID-19) Ag panel - Upper respiratory specimOrdered By: Robert Allison on 08-13-2023 SARS-CoV-2 (COVID-19) RNA BEBETO+probe Ql (Resp) [facility] Ketones Test strip Ql (U)Ord ered By: Robert Allison on 08-13-2023 Ketones Ql (U) 50 mg/dl Negative [facility] Laboratory - Chemistry and C hemistry - challengeOrdered By: Heydi Amaya on 08-13-2023 Sodium (U) [Moles/Vol] 24 mmol/L Not Establ. [facility] - Chemistry and C hemistry - challengeOrdered By: Robert Allison on 08-13-2023 ALP [Catalytic activity/Vol] 105 U/L 45-117 [facility] ALT [Catalytic activity/Vol] 29 U/L 13-56 [facility] CO2 [Moles/Vol] 23.0 mmol/L 21.0-32.0 [facility] Globulin (S) [Mass/Vol] 5.6 g/dL 2.2-4.2 [facility] Urea nitrogen/Creatinine [Mass ratio] 26.3 mg/mg 10-20 [facility] Laboratory - Hematology and Cell countsOrdered By: Robert Allison on 08-13-2023 Erythrocyte distribution width (RBC) [Entitic vol] 53.7 fL 35.1-43.9 [facility] Erythrocyte distribution width (RBC) [Ratio] 17.2 % 11.6-14.6 [facility] Immature granulocytes/100 WBC (Bld) 1.400 % 0.0-0.9 [facility] Comment on above: IG% - Immature Granu locytes (promyelocytes, myelocytes and metamyelocytes) > 1% indicates that a LEFT SHIFT is Present. 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 [facility] Urine Urea Nitrogen 334 mg/dL NO RANGE EST. [facility] No Panel InformationOrdered By: Robert Allison on 08-13-2023 Estimated Creatinine Clearance Calc 31.98 ml/min [facility] Estimated GFR (MDRD) Amer 57 mL/min >60 [facility] Comment on above: GFR Calc Estimated GFR (MDRD) Non-Af Amer 47 mL/min >60 [facility] Comment on above: Non- GFR Calc Troponin I High Sensitivity 39 pg/mL 3.0-54.0 [facility] Comment on above: Please Note: New Rosi t Units and Gender Specific Reference Ranges. For more information see Policy Stat Procedure Hatch High Sensitivity Troponin (TNIH) and attachments. Platelets bldOrdered By: Rem us Keegan on 08-13-2023 Platelets (Bld) [#/Vol] 412 10*3/uL 150-450 [facility] Protein Test strip Ql (U)Ord ered By: Rem Ungmasood on 08-13-2023 Protein Ql (U) 30 mg/dl Negative [facility] Serum or plasma albumin melanie urement (mass/volume)[facility] Espin[facility] on 08-13-2023 Albumin [Mass/Vol] 2.2 g/dL 3.2-5.0 [facility] Serum or plasma albumin/glob ulin mass ratioOrdered By: [facility] Ungmasood on 08-13-2023 Albumin/Globulin [Mass ratio] 0.4 {ratio} 0.9-2.4 [facility] Serum or plasma calcium melanie urement (mass/volume)Ordered By: [facility] Espin[facility] on 08-13-2023 Calcium [Mass/Vol] 10.5 mg/dL 8.5-10.1 [facility] Serum or plasma creatinine m easurement (mass/volume)Ordered By: [facility] E[facility] on 08-13-2023 Creatinine [Mass/Vol] 1.18 mg/dL 0.55-1.02 [facility] Comment on above: The validity of the calculated GFR & GFRAA in patients over 70 years has not been determined. Clinical correlation is essential. Serum or plasma urea nitroge n measurement (mass/volume)Ordered By: [facility] Keegan on 08-13-2023 Urea nitrogen [Mass/Vol] 31 mg/dL 7-18 [facility] Squamous epithelial cells de tection in urine sediment by light microscopyOrdered By: Harrietus Allison on 08-13-2023 Epithelial cells.squamous LM Ql (Urine sed) 0 SEEN /hpf 5-10 [facility] Thin prep Papanicolaou smear with manual screeningOrdered By: Heydi Amaya on 08-13-2023 Thin prep Papanicolaou smear with manual screening 20 mmol/L Not Establ. [facility] Thin prep Papanicolaou smear with manual screeningOrdered By: Robert Allison on 08-13-2023 Thin prep Papanicolaou smear with manual screening 36 U/L [facility] Comment on above: Moderate Hemolysis, Result may be falsely increased. Thin prep Papanicolaou smear with manual screening 01-12 [facility] Upper respiratory specimen i nfluenza A virus, influenza B virus, and severe acute resOrdered By: Robert Allison on 08-13-2023 Upper respiratory specimen influenza A virus, influenza B virus, and severe acute res [facility] Urine blood detectionOrdered By: Robert Allison on 08-13-2023 RBC Ql (U) 50 /ul Negative [facility] RBC Ql (U) 0-5 SEEN /hpf 0-5 [facility] Urine clarityOrdered By: Harriet Allison on 08-13-2023 Clarity (U) Sl. Cloudy Clear [facility] Urine color determinationOrd ered By: Robetr Allison on 08-13-2023 Color (U) Yellow Yellow [facility] Urine creatinine measurement (mass/volume)Ordered By: Heydi Amaya on 08-13-2023 Creatinine (U) [Mass/Vol] 37.60 mg/dL NO RANGE EST. [facility] Urine glucose detectionOrder ed By: Robert Allison on 08-13-2023 Glucose Ql (U) 1000 mg/dl Normal [facility] Urine leukocyte esterase det ection by dipstickOrdered By: Robert Allison on 08-13-2023 Leukocyte esterase Test strip Ql (U) 500 /ul Negative [facility] Urine osmolality measurement Ordered By: Heydi Amaya on 08-13-2023 Osmolality (U) [Osmolality] 269 mOsm/KG >50 [facility] Comment on above: Normal Urine Referen ce Ranges Random: 50 - 1200 mOsm/kg H20 depending on fluid intake Random: >850 mOsm/kg after 12 hour fluid restriction 24 hour: ~300 - 900 mOsm/kg H2O Urine pHOrdered By: Robert sibley on 08-13-2023 pH (U) 5.0 [pH] 5.0 - 8.0 [facility] Urine sediment bacteria coun t by microscopy (number/high power field)Ordered By: Robert Keegan on 08-13-2023 Bacteria LM.HPF (Urine sed) [#/Area] 3 /[HPF] None Seen [facility] Urine specific gravity measu rementOrdered By: Harriet Keegan on 08-13-2023 Specific gravity (U) [Rel density] 1.015 1.002-1.030 [facility] Urobilinogen Auto test strip Ql (U)Ordered By: Robert Allison on 08-13-2023 Urobilinogen Ql (U) Normal mg/dl Normal [facility] Absolute lymphocyte countOrd ered By: Winston Jairo on 07-18-2023 Lymphocytes Auto (Unsp spec) [#/Vol] 0.92 10*3/uL 0.83-4.51 [facility] Basophil percentageOrdered B y: Winston Gill on 07-18-2023 Basophil percentage >100 SEEN /hpf 0-5 [facility] Basophils/100 WBC (Bld) 0.4 % 0-1 [facility] Bilirubin [Mass/Vol] 0.40 mg/dL 0.20-1.00 [facility] Comment on above: For patients on eltr ombopag therapy, use of Dimension Hatch TBIL is not recommended. Chloride [Moles/Vol] 95 mmol/L 98-107 [facility] Eosinophils/100 WBC (Bld) 0.7 % 0-5 [facility] Glucose [Mass/Vol] 139 mg/dL 74-106 [facility] Comment on above: Fasting Glucose resu lt greater than or equal to 126 mg/dL suggests DIABETES MELLITUS per A.D.A. criteria. Neutrophils (Bld) [#/Vol] 5.4 10*3/uL 2.0-7.7 [facility] Neutrophils/100 WBC (Bld) 76.5 % 47-70 [facility] Potassium [Moles/Vol] 3.7 mmol/L 3.5-5.1 [facility] Protein [Mass/Vol] 7.4 g/dL 6.4-8.2 [facility] Sodium [Moles/Vol] 131 mmol/L 136-145 [facility] WBC (Bld) [#/Vol] 7.0 10*3/uL 4.4-11.0 [facility] Bilirubin Test strip Ql (U)O rdered By: Winston Gill on 07-18-2023 Bilirubin Ql (U) Negative Negative [facility] Blood erythrocytes count (nu mber/volume)Ordered By: Winston Gill on 07-18-2023 RBC (Bld) [#/Vol] 3.85 10*6/uL 4.2-5.4 [facility] Blood hemoglobin measurement (mass/volume)Ordered By: Winston Gill on 07-18-2023 Hemoglobin (Bld) [Mass/Vol] 10.8 g/dL 12.0-15.0 [facility] Blood lymphocytes/100 leukoc ytesOrdered By: Winston Gill on 07-18-2023 Lymphocytes/100 WBC (Bld) 13.1 % 19-41 [facility] Blood monocytes/100 leukocyt esOrdered By: Winston Gill on 07-18-2023 Monocytes/100 WBC (Bld) 8.0 % 0-10 [facility] Blood platelet mean volumeOr dered By: Winston Gill on 07-18-2023 Platelet mean volume (Bld) [Entitic vol] 10.0 fL 6.2-12.0 [facility] Culture, urineOrdered By: Devyn Rea on 07-18-2023 Bacteria identified Cx Nom (U) Escherichia coli [facility] Bacteria identified Cx Nom (U) Klebsiella pneumoniae sp pneum [facility] Determination of erythrocyte mean corpuscular volume (MCV)Ordered By: Winston Gill on 07-18-2023 MCV (RBC) [Entitic vol] 87.0 fL 81-99 [facility] Hematocrit Auto (Bld) [Volum e fraction]Ordered By: Winston Gill on 07-18-2023 Hematocrit (Bld) [Volume fraction] 33.5 % 37-47 [facility] Ketones Test strip Ql (U)Ord ered By: Winston Gill on 07-18-2023 Ketones Ql (U) 50 mg/dl Negative [facility] Laboratory - Chemistry and C hemistry - challengeOrdered By: Winston Gill on 07-18-2023 ALP [Catalytic activity/Vol] 93 U/L 45-117 [facility] ALT [Catalytic activity/Vol] 13 U/L 13-56 [facility] CO2 [Moles/Vol] 27.0 mmol/L 21.0-32.0 [facility] Globulin (S) [Mass/Vol] 4.8 g/dL 2.2-4.2 [facility] Urea nitrogen/Creatinine [Mass ratio] 15.6 mg/mg 10-20 [facility] Laboratory - Hematology and Cell countsOrdered By: Winston Gill on 07-18-2023 Erythrocyte distribution width (RBC) [Entitic vol] 52.4 fL 35.1-43.9 [facility] Erythrocyte distribution width (RBC) [Ratio] 16.4 % 11.6-14.6 [facility] Immature granulocytes/100 WBC (Bld) 1.300 % 0.0-0.9 [facility] Comment on above: IG% - Immature Granu locytes (promyelocytes, myelocytes and metamyelocytes) > 1% indicates that a LEFT SHIFT is Present. MCH (RBC) [Entitic mass] 28.1 pg 27.0-32.0 [facility] Nucleated RBC/100 WBC (Bld) [Ratio] 0 % 0-5 [facility] MCHC Auto (RBC) [Mass/Vol]Or dered By: Winston Gill on 07-18-2023 MCHC (RBC) [Mass/Vol] 32.2 g/dL 32-36 [facility] Mucus LM Ql (Urine sed)Order ed By: Winston Gill on 07-18-2023 Mucus Ql (Urine sed) 0 SEEN /hpf [facility] Nitrite Test strip Ql (U)Ord ered By: Winston Gill on 07-18-2023 Nitrite Ql (U) Negative Negative [facility] No Panel InformationOrdered By: Winston Gill on 07-18-2023 Estimated Creatinine Clearance Calc 45.46 ml/min [facility] Estimated GFR (MDRD) Amer 85 mL/min >60 [facility] Comment on above: GFR Calc Estimated GFR (MDRD) Non-Af Amer 70 mL/min >60 [facility] Comment on above: Non- GFR Calc Platelets bldOrdered By: Tre Gill on 11-18-2023 Platelets (Bld) [#/Vol] 370 10*3/uL 150-450 [facility] Protein Test strip Ql (U)Ord ered By: Winston Gill on 07-18-2023 Protein Ql (U) 100 mg/dl Negative [facility] Serum or plasma albumin melanie urement (mass/volume)Ordered By: Winston Gill on 07-18-2023 Albumin [Mass/Vol] 2.6 g/dL 3.2-5.0 [facility] Serum or plasma albumin/glob ulin mass ratioOrdered By: Winston Gill on 07-18-2023 Albumin/Globulin [Mass ratio] 0.5 {ratio} 0.9-2.4 [facility] Serum or plasma calcium melanie urement (mass/volume)Ordered By: Winston Gill on 07-18-2023 Calcium [Mass/Vol] 10.3 mg/dL 8.5-10.1 [facility] Serum or plasma creatinine m easurement (mass/volume)Ordered By: Winston Gill on 07-18-2023 Creatinine [Mass/Vol] 0.83 mg/dL 0.55-1.02 [facility] Comment on above: The validity of the calculated GFR & GFRAA in patients over 70 years has not been determined. Clinical correlation is essential. Serum or plasma urea nitroge n measurement (mass/volume)Ordered By: Winston Gill on 07-18-2023 Urea nitrogen [Mass/Vol] 13 mg/dL 7- [facility] Squamous epithelial cells de tection in urine sediment by light microscopyOrdered By: Winston Gill on 07-18-2023 Epithelial cells.squamous LM Ql (Urine sed) 5-10 SEEN /hpf 5-10 [facility] Thin prep Papanicolaou smear with manual screeningOrdered By: Winston Gill on 07-18-2023 Thin prep Papanicolaou smear with manual screening 26 U/L 15-37 [facility] Thin prep Papanicolaou smear with manual screening 9 5-15 [facility] Urine blood detectionOrdered By: Winston Gill on 07-18-2023 RBC Ql (U) 50 /ul Negative [facility] RBC Ql (U) 0-5 SEEN /hpf 0-5 [facility] Urine clarityOrdered By: Tre Gill on 07-18-2023 Clarity (U) Cloudy Clear [facility] Urine color determinationOrd ered By: Winston Gill on 07-18-2023 Color (U) Yellow Yellow [facility] Urine glucose detectionOrder ed By: Winston Gill on 07-18-2023 Glucose Ql (U) 1000 mg/dl Normal [facility] Urine leukocyte esterase det ection by dipstickOrdered By: Winston Gill on 07-18-2023 Leukocyte esterase Test strip Ql (U) 500 /ul Negative [facility] Urine pHOrdered By: Winston castillo on 07-18-2023 pH (U) 5.0 [pH] 5.0 - 8.0 [facility] Urine sediment bacteria coun t by microscopy (number/high power field)Ordered By: Winston Gill on 07-18-2023 Bacteria LM.HPF (Urine sed) [#/Area] 3 /[HPF] None Seen [facility] Urine sediment leukocyte lisandro t count by microscopy (number/low power field)Ordered By: Winston Gill on 07-18-2023 WBC casts LM.LPF (Urine sed) [#/Area] 0-5 SEEN /lpf None Seen [facility] Urine specific gravity measu rementOrdered By: Winston Gill on 07-18-2023 Specific gravity (U) [Rel density] 1.020 1.002-1.030 [facility] Urobilinogen Auto test strip Ql (U)Ordered By: Winston Gill on 07-18-2023 Urobilinogen Ql (U) 1 mg/dl Normal [facility] No Panel Informationon 07-15 POC SARS CoV-2 Antigen Negative [facility] Amorphous sediment detection in urine sediment by light microscopyOrdered By: Cheryl Mendez on 06-01-2023 Amorphous sediment LM Ql (Urine sed) 1+ URATE [facility] Basophil percentageOrdered B y: Cheryl Mendze on 06-01-2023 Basophil percentage 5-10 SEEN /hpf 0-5 [facility] Bilirubin Test strip Ql (U)O rdered By: Cheryl Mendez on 06-01-2023 Bilirubin Ql (U) Negative Negative [facility] Ketones Test strip Ql (U)Ord ered By: Cheryl Mendez on 06-01-2023 Ketones Ql (U) Negative Negative [facility] Mucus LM Ql (Urine sed)Order ed By: Cheryl Mendez on 06-01-2023 Mucus Ql (Urine sed) 0 SEEN /hpf [facility] Nitrite Test strip Ql (U)Ord ered By: Cheryl Mendez on 06-01-2023 Nitrite Ql (U) Negative Negative [facility] No Panel InformationOrdered By: Cheryl Mendez on 06-01-2023 Urine Microalbumin/Creatinine Ratio 173.1 mg/g CRE <30 [facility] Protein Test strip Ql (U)Ord ered By: Cheryl Mendez on 06-01-2023 Protein Ql (U) 15 mg/dl Negative [facility] Squamous epithelial cells de tection in urine sediment by light microscopyOrdered By: Cheryl Mendez on 06-01-2023 Epithelial cells.squamous LM Ql (Urine sed) 0-5 SEEN /hpf 5-10 [facility] Thin prep Papanicolaou smear with manual screeningOrdered By: Cheryl Mendez on 06-01-2023 Thin prep Papanicolaou smear with manual screening 98.3 mg/L NO RANGE EST. [facility] Urine blood detectionOrdered By: Cheryl Mendez on 06-01-2023 RBC Ql (U) 25 /ul Negative [facility] RBC Ql (U) 0-5 SEEN /hpf 0-5 [facility] Urine clarityOrdered By: Dyana Mendez on 06-01-2023 Clarity (U) Cloudy Clear [facility] Urine color determinationOrd ered By: Cheryl Mendez on 06-01-2023 Color (U) Yellow Yellow [facility] Urine creatinine measurement (mass/volume)Ordered By: Cheryl Mendez on 06-01-2023 Creatinine (U) [Mass/Vol] 56.80 mg/dL NO RANGE EST. [facility] Urine glucose detectionOrder ed By: Cheryl Mendez on 06-01-2023 Glucose Ql (U) 1000 mg/dl Normal [facility] Urine leukocyte esterase det ection by dipstickOrdered By: Cheryl Mendez on 06-01-2023 Leukocyte esterase Test strip Ql (U) 100 /ul Negative [facility] Urine pHOrdered By: Nikki Mendez on 06-01-2023 pH (U) 5.0 [pH] 5.0 - 8.0 [facility] Urine sediment bacteria coun t by microscopy (number/high power field)Ordered By: Cheryl Mendez on 06-01-2023 Bacteria LM.HPF (Urine sed) [#/Area] 3 /[HPF] None Seen [facility] Urine specific gravity measu rementOrdered By: Cheryl Mendez on 06-01-2023 Specific gravity (U) [Rel density] 1.015 1.002-1.030 [facility] Urobilinogen Auto test strip Ql (U)Ordered By: Cheryl Mendez on 06-01-2023 Urobilinogen Ql (U) Normal mg/dl Normal [facility] Basophil percentageOrdered B y: Cheryl Mendez on 05-27-2023 Basophil percentage 2.7 mg/dL 2.5-4.9 [facility] Chloride [Moles/Vol] 102 mmol/L 98-107 [facility] Glucose [Mass/Vol] 220 mg/dL 74-106 [facility] Comment on above: Glucose result great er than or equal to 200 mg/dLsuggests DIABETES MELLITUS per A.D.A. criteria. Potassium [Moles/Vol] 3.9 mmol/L 3.5-5.1 [facility] Sodium [Moles/Vol] 137 mmol/L 136-145 [facility] Laboratory - Chemistry and C hemistry - challengeOrdered By: Cheryl Mendez on 05-27-2023 CO2 [Moles/Vol] 28.0 mmol/L 21.0-32.0 [facility] Urea nitrogen/Creatinine [Mass ratio] 10.0 mg/mg 10-20 [facility] No Panel InformationOrdered By: Cheryl Mendez on 05-27-2023 Estimated GFR (MDRD) Amer 89 mL/min >60 [facility] Comment on above: GFR Calc Estimated GFR (MDRD) Non-Af Amer 73 mL/min >60 [facility] Comment on above: Non- GFR Calc Parathyroid Hormone (Intact) 164.3 pg/mL 18.4-80.1 [facility] Vitamin D 25-Hydroxy 45.4 ng/mL [facility] Comment on above: Vitamin D 25(OH) Sta tus Range Deficiency <20 ng/mL (50nmol/L) Insufficiency 20 - 30 ng/mL (50 - 75 nmol/L) Sufficiency 30 - 100 ng/mL (75 - 250 nmol/L) Toxicity >100 ng/mL (>250 nmol/L) Serum or plasma albumin melanie urement (mass/volume)Ordered By: Cheryl Mendez on 05-27-2023 Albumin [Mass/Vol] 2.9 g/dL 3.2-5.0 [facility] Serum or plasma calcium melanie urement (mass/volume)Ordered By: Cheryl Mendez on 05-27-2023 Calcium [Mass/Vol] 10.7 mg/dL 8.5-10.1 [facility] Serum or plasma creatinine m easurement (mass/volume)Ordered By: Cheryl Mendez on 05-27-2023 Creatinine [Mass/Vol] 0.80 mg/dL 0.55-1.02 [facility] Comment on above: The validity of the calculated GFR & GFRAA in patients over 70 years has not been determined. Clinical correlation is essential. Serum or plasma urea nitroge n measurement (mass/volume)Ordered By: Cheryl Mendez on 05-27-2023 Urea nitrogen [Mass/Vol] 8 mg/dL 7-18 [facility] Culture, urineOrdered By: Allan Anguiano on 03-24-2023 Bacteria identified Cx Nom (U) Klebsiella pneumoniae sp pneum [facility] Bacteria identified Cx Nom (U) Klebsiella pneumoniae sp pneum [facility] Absolute lymphocyte countOrd ered By: Dr. Smiley on 01-28-2023 Lymphocytes Auto (Unsp spec) [#/Vol] 3.27 10*3/uL 0.83-4.51 [facility] Absolute lymphocyte countOrd ered By: Dr. Lockwood on 01-28-2023 Lymphocytes Auto (Unsp spec) [#/Vol] 2.27 10*3/uL 0.83-4.51 [facility] Basophil percentageOrdered B y: Dr. Smiley on 01-28-2023 Basophils/100 WBC (Bld) 0.5 % 0-1 [facility] Bilirubin [Mass/Vol] 0.30 mg/dL 0.20-1.00 [facility] Comment on above: For patients on eltr ombopag therapy, use of Dimension Hatch TBIL is not recommended. Chloride [Moles/Vol] 99 mmol/L 98-107 [facility] Cholesterol [Mass/Vol] 145 mg/dL <200 [facility] Comment on above: <200 mg/dL Desirable 200-240 mg/dL Borderline >240 mg/dL High Risk Eosinophils/100 WBC (Bld) 2.3 % 0-5 [facility] Glucose [Mass/Vol] 182 mg/dL 74-106 [facility] Comment on above: Fasting Glucose resu lt greater than or equal to 126 mg/dL suggests DIABETES MELLITUS per A.D.A. criteria. Neutrophils (Bld) [#/Vol] 3.9 10*3/uL 2.0-7.7 [facility] Neutrophils/100 WBC (Bld) 50.0 % 47-70 [facility] Potassium [Moles/Vol] 3.6 mmol/L 3.5-5.1 [facility] Protein [Mass/Vol] 7.9 g/dL 6.4-8.2 [facility] Sodium [Moles/Vol] 134 mmol/L 136-145 [facility] Triglyceride [Mass/Vol] 119 mg/dL <199 [facility] Comment on above: The drugs N-Acetylcy steine and Metamizole may falsely depress this assay.Serum Triglycerides Reference Interval Normal <150 mg/dL Borderline high 150 - 199 mg/dL High 200 - 499 mg/dL Very High > or = 500 mg/dL WBC (Bld) [#/Vol] 7.7 10*3/uL 4.4-11.0 [facility] Basophil percentageOrdered B y: Dr. Lockwood on 01-28-2023 Basophils/100 WBC (Bld) 0.8 % 0-1 [facility] Chloride [Moles/Vol] 102 mmol/L 98-107 [facility] Eosinophils/100 WBC (Bld) 2.6 % 0-5 [facility] Glucose [Mass/Vol] 137 mg/dL 74-106 [facility] Comment on above: Fasting Glucose resu lt greater than or equal to 126 mg/dL suggests DIABETES MELLITUS per A.D.A. criteria. Neutrophils (Bld) [#/Vol] 3.8 10*3/uL 2.0-7.7 [facility] Neutrophils/100 WBC (Bld) 56.6 % 47-70 [facility] Potassium [Moles/Vol] 3.8 mmol/L 3.5-5.1 [facility] Protein [Mass/Vol] 7.4 g/dL 6.4-8.2 [facility] Sodium [Moles/Vol] 136 mmol/L 136-145 [facility] WBC (Bld) [#/Vol] 6.6 10*3/uL 4.4-11.0 [facility] Blood erythrocytes count (nu mber/volume)Ordered By: Dr. Smiley on 01-28-2023 RBC (Bld) [#/Vol] 4.10 10*6/uL 4.2-5.4 [facility] Blood erythrocytes count (nu mber/volume)Ordered By: Dr. Lockwood on 01-28-2023 RBC (Bld) [#/Vol] 3.83 10*6/uL 4.2-5.4 [facility] Blood hemoglobin measurement (mass/volume)Ordered By: Dr. Smiley on 01-28-2023 Hemoglobin (Bld) [Mass/Vol] 11.5 g/dL 12.0-15.0 [facility] Blood hemoglobin measurement (mass/volume)Ordered By: Dr. Lockwood on 01-28-2023 Hemoglobin (Bld) [Mass/Vol] 11.1 g/dL 12.0-15.0 [facility] Blood lymphocytes/100 leukoc ytesOrdered By: Dr. Smiley on 01-28-2023 Lymphocytes/100 WBC (Bld) 42.3 % - [facility] Blood lymphocytes/100 leukoc ytesOrdered By: Dr. Lockwood on 01-28-2023 Lymphocytes/100 WBC (Bld) 34.2 % - [facility] Blood monocytes/100 leukocyt esOrdered By: Dr. Smiley on 01-28-2023 Monocytes/100 WBC (Bld) 4.8 % 0-10 [facility] Blood monocytes/100 leukocyt esOrdered By: Dr. Lockwood on 01-28-2023 Monocytes/100 WBC (Bld) 5.6 % 0-10 [facility] Blood platelet mean volumeOr dered By: Dr. Smiley on 01-28-2023 Platelet mean volume (Bld) [Entitic vol] 9.8 fL 6.2-12.0 [facility] Blood platelet mean volumeOr dered By: Dr. Lockwood on 01-28-2023 Platelet mean volume (Bld) [Entitic vol] 9.3 fL 6.2-12.0 [facility] Determination of erythrocyte mean corpuscular volume (MCV)Ordered By: Dr. Smiley on 01-28-2023 MCV (RBC) [Entitic vol] 90.7 fL 81-99 [facility] Determination of erythrocyte mean corpuscular volume (MCV)Ordered By: Dr. Lockwood on 01-28-2023 MCV (RBC) [Entitic vol] 87.7 fL 81-99 [facility] Hematocrit Auto (Bld) [Volum e fraction]Ordered By: Dr. Smiley on 01-28-2023 Hematocrit (Bld) [Volume fraction] 37.2 % 37-47 [facility] Hematocrit Auto (Bld) [Volum e fraction]Ordered By: Dr. Lockwood on 01-28-2023 Hematocrit (Bld) [Volume fraction] 33.6 % 37-47 [facility] Laboratory - Chemistry and C hemistry - challengeOrdered By: Dr. Smiley on 01-28-2023 ALP [Catalytic activity/Vol] 153 U/L 45-117 [facility] ALT [Catalytic activity/Vol] 20 U/L 13-56 [facility] CO2 [Moles/Vol] 25.0 mmol/L 21.0-32.0 [facility] Globulin (S) [Mass/Vol] 4.9 g/dL 2.2-4.2 [facility] Urea nitrogen/Creatinine [Mass ratio] 10.7 mg/mg 10-20 [facility] Laboratory - Chemistry and C hemistry - challengeOrdered By: Dr. Lockwood on 01-28-2023 ALP [Catalytic activity/Vol] 140 U/L 45-117 [facility] CO2 [Moles/Vol] 27.0 mmol/L 21.0-32.0 [facility] Free T4 [Mass/Vol] 1.11 ng/dL 0.76-1.46 [facility] Globulin (S) [Mass/Vol] 4.5 g/dL 2.2-4.2 [facility] Urea nitrogen/Creatinine [Mass ratio] 11.5 mg/mg 10-20 [facility] Laboratory - Hematology and Cell countsOrdered By: Dr. Smiley on 01-28-2023 Erythrocyte distribution width (RBC) [Entitic vol] 49.7 fL 35.1-43.9 [facility] Erythrocyte distribution width (RBC) [Ratio] 14.9 % 11.6-14.6 [facility] Immature granulocytes/100 WBC (Bld) 0.100 % 0.0-0.9 [facility] Comment on above: IG% - Immature Granu locytes (promyelocytes, myelocytes and metamyelocytes) > 1% indicates that a LEFT SHIFT is Present. MCH (RBC) [Entitic mass] 28.0 pg 27.0-32.0 [facility] Nucleated RBC/100 WBC (Bld) [Ratio] 0 % 0-5 [facility] Laboratory - Hematology and Cell countsOrdered By: Dr. Lockwood on 01-28-2023 Erythrocyte distribution width (RBC) [Entitic vol] 47.3 fL 35.1-43.9 [facility] Erythrocyte distribution width (RBC) [Ratio] 14.8 % 11.6-14.6 [facility] Immature granulocytes/100 WBC (Bld) 0.200 % 0.0-0.9 [facility] Comment on above: IG% - Immature Granu locytes (promyelocytes, myelocytes and metamyelocytes) > 1% indicates that a LEFT SHIFT is Present. MCH (RBC) [Entitic mass] 29.0 pg 27.0-32.0 [facility] MCHC Auto (RBC) [Mass/Vol]Or dered By: Dr. Smiley on 01-28-2023 MCHC (RBC) [Mass/Vol] 30.9 g/dL -36 [facility] MCHC Auto (RBC) [Mass/Vol]Or dered By: Dr. Lockwood on 01-28-2023 MCHC (RBC) [Mass/Vol] 33.0 g/dL - [facility] Comment on above: Delta: 30.9 on 01/28-0 No Panel InformationOrdered By: Dr. Lockwood on 01-28-2023 Estimated Creatinine Clearance Calc 37.74 ml/min [facility] Estimated GFR (MDRD) Amer 91 mL/min >60 [facility] Comment on above: GFR Calc Estimated GFR (MDRD) Non-Af Amer 75 mL/min >60 [facility] Comment on above: Non- GFR Calc Free Triiodothyronine (T3) pg/dL 2.9 pg/mL 2.18-3.98 [facility] No Panel InformationOrdered By: Dr. Smiley on 01-28-2023 Estimated GFR (MDRD) Amer 84 mL/min >60 [facility] Comment on above: GFR Calc Estimated GFR (MDRD) Non-Af Amer 70 mL/min >60 [facility] Comment on above: Non- GFR Calc Parathyroid Hormone (Intact) 112.9 pg/mL 18.4-80.1 [facility] Thyroid Stimulating Hormone (TSH) 0.02 uIU/mL 0.358-3.74 [facility] Vitamin D 25-Hydroxy 66.1 ng/mL [facility] Comment on above: Vitamin D 25(OH) Sta tus Range Deficiency <20 ng/mL (50nmol/L) Insufficiency 20 - 30 ng/mL (50 - 75 nmol/L) Sufficiency 30 - 100 ng/mL (75 - 250 nmol/L) Toxicity >100 ng/mL (>250 nmol/L) Platelets bldOrdered By: Dr. Smiley on 01-28-2023 Platelets (Bld) [#/Vol] 349 10*3/uL 150-450 [facility] Platelets bldOrdered By: Dr. Lockwood on 01-28-2023 Platelets (Bld) [#/Vol] 285 10*3/uL 150-450 [facility] Serum or plasma albumin melanie urement (mass/volume)Ordered By: Dr. Smiley on 01-28-2023 Albumin [Mass/Vol] 3.0 g/dL 3.2-5.0 [facility] Serum or plasma albumin melanie urement (mass/volume)Ordered By: Dr. Lockwood on 01-28-2023 Albumin [Mass/Vol] 2.9 g/dL 3.2-5.0 [facility] Serum or plasma albumin/glob ulin mass ratioOrdered By: Dr. Smiley on 01-28-2023 Albumin/Globulin [Mass ratio] 0.6 {ratio} 0.9-2.4 [facility] Serum or plasma calcium melanie urement (mass/volume)Ordered By: Dr. Smiley on 01-28-2023 Calcium [Mass/Vol] 11.5 mg/dL 8.5-10.1 [facility] Serum or plasma calcium melanie urement (mass/volume)Ordered By: Dr. Lockwood on 01-28-2023 Calcium [Mass/Vol] 11.4 mg/dL 8.5-10.1 [facility] Serum or plasma cholesterol in HDL measurement (mass/volume)Ordered By: Dr. Smiley on 01-28-2023 Cholesterol in HDL [Mass/Vol] 46 mg/dL >40 [facility] Comment on above: The drugs N-Acetylcy steine and Metamizole may falsely depress this assay. Reference Range HDL <40 mg/dL Low HDL Cholesterol HDL >or= 60 mg/dL High HDL Cholesterol Serum or plasma cholesterol in VLDL measurement (mass/volume)Ordered By: Dr. Smiley on 01-28-2023 Cholesterol in VLDL [Mass/Vol] 24 mg/dL 5-40 [facility] Serum or plasma creatinine m easurement (mass/volume)Ordered By: Dr. Smiley on 01-28-2023 Creatinine [Mass/Vol] 0.84 mg/dL 0.55-1.02 [facility] Comment on above: The validity of the calculated GFR & GFRAA in patients over 70 years has not been determined. Clinical correlation is essential. Serum or plasma creatinine m easurement (mass/volume)Ordered By: Dr. Lockwodo on 01-28-2023 Creatinine [Mass/Vol] 0.78 mg/dL 0.55-1.02 [facility] Comment on above: The validity of the calculated GFR & GFRAA in patients over 70 years has not been determined. Clinical correlation is essential. Serum or plasma low density lipoprotein (LDL) cholesterol measurement (mass/volume)Ordered By: Dr. Smiley on 01-28-2023 Cholesterol in LDL [Mass/Vol] 75 mg/dL 0-130 [facility] Serum or plasma urea nitroge n measurement (mass/volume)Ordered By: Dr. Smiley on 01-28-2023 Urea nitrogen [Mass/Vol] 9 mg/dL 7-18 [facility] Thin prep Papanicolaou smear with manual screeningOrdered By: Dr. Smiley on 01-28-2023 Thin prep Papanicolaou smear with manual screening 22 U/L - [facility] Thin prep Papanicolaou smear with manual screening 10 - [facility] Thin prep Papanicolaou smear with manual screeningOrdered By: Dr. Lockwood on 01-28-2023 Thin prep Papanicolaou smear with manual screening 18 U/L - [facility] Thin prep Papanicolaou smear with manual screening 7 - [facility] Whole blood hemoglobin A1c/t otal hemoglobin ratio (mass fraction)Ordered By: Dr. Smiley on 01-28-2023 HbA1c (Bld) [Mass fraction] 7.5 % 3.8-5.6 [facility] Comment on above: Normal < 5.7 % Predi abetic 5.7 - 6.4 % Diabetic >or= 6.5 % Please note range changes. Basophil percentageOrdered B y: Dr. Smiley on 12-09-2022 Bilirubin [Mass/Vol] 0.20 mg/dL 0.20-1.00 [facility] Comment on above: For patients on eltr ombopag therapy, use of Dimension Hatch TBIL is not recommended. Chloride [Moles/Vol] 101 mmol/L 98-107 [facility] Glucose [Mass/Vol] 168 mg/dL 74-106 [facility] Comment on above: Fasting Glucose resu lt greater than or equal to 126 mg/dL suggests DIABETES MELLITUS per A.D.A. criteria. Potassium [Moles/Vol] 3.7 mmol/L 3.5-5.1 [facility] Protein [Mass/Vol] 8.7 g/dL 6.4-8.2 [facility] Sodium [Moles/Vol] 133 mmol/L 136-145 [facility] Laboratory - Chemistry and C hemistry - challengeOrdered By: Dr. Smiley on 12-09-2022 ALP [Catalytic activity/Vol] 164 U/L 45-117 [facility] ALT [Catalytic activity/Vol] 27 U/L 13-56 [facility] CO2 [Moles/Vol] 25.0 mmol/L 21.0-32.0 [facility] Globulin (S) [Mass/Vol] 5.4 g/dL 2.2-4.2 [facility] Urea nitrogen/Creatinine [Mass ratio] 10.7 mg/mg 10-20 [facility] No Panel InformationOrdered By: Dr. Smiley on 12-09-2022 Estimated GFR (MDRD) Amer 67 mL/min >60 [facility] Comment on above: GFR Calc Estimated GFR (MDRD) Non-Af Amer 55 mL/min >60 [facility] Comment on above: Non- GFR Calc Parathyroid Hormone (Intact) 175.0 pg/mL 18.4-80.1 [facility] Vitamin D 25-Hydroxy 92.6 ng/mL [facility] Comment on above: Vitamin D 25(OH) Sta tus Range Deficiency <20 ng/mL (50nmol/L) Insufficiency 20 - 30 ng/mL (50 - 75 nmol/L) Sufficiency 30 - 100 ng/mL (75 - 250 nmol/L) Toxicity >100 ng/mL (>250 nmol/L) Serum or plasma albumin melanie urement (mass/volume)Ordered By: Dr. Smiley on 12-09-2022 Albumin [Mass/Vol] 3.3 g/dL 3.2-5.0 [facility] Serum or plasma albumin/glob ulin mass ratioOrdered By: Dr. Smiley on 12-09-2022 Albumin/Globulin [Mass ratio] 0.6 {ratio} 0.9-2.4 [facility] Serum or plasma calcium melanie urement (mass/volume)Ordered By: Dr. Smiley on 12-09-2022 Calcium [Mass/Vol] 11.4 mg/dL 8.5-10.1 [facility] Serum or plasma creatinine m easurement (mass/volume)Ordered By: Dr. Smiley on 12-09-2022 Creatinine [Mass/Vol] 1.03 mg/dL 0.55-1.02 [facility] Comment on above: The validity of the calculated GFR & GFRAA in patients over 70 years has not been determined. Clinical correlation is essential. Serum or plasma urea nitroge n measurement (mass/volume)Ordered By: Dr. Smiley on 12-09-2022 Urea nitrogen [Mass/Vol] 11 mg/dL 7-18 [facility] Thin prep Papanicolaou smear with manual screeningOrdered By: Dr. Smiley on 12-09-2022 Thin prep Papanicolaou smear with manual screening 20 U/L 15-37 [facility] Thin prep Papanicolaou smear with manual screening 7 5-15 [facility] Whole blood hemoglobin A1c/t otal hemoglobin ratio (mass fraction)Ordered By: Dr. Smiley on 12-09-2022 HbA1c (Bld) [Mass fraction] 7.4 % 3.8-5.6 [facility] Comment on above: Normal < 5.7 % Predi abetic 5.7 - 6.4 % Diabetic >or= 6.5 % Please note range changes. Absolute lymphocyte counton 07-14-2022 Lymphocytes Auto (Unsp spec) [#/Vol] 2.79 10*3/uL 0.83-4.51 [facility] Work Phone: Basophil percentageon 2021 Basophil percentage 25-50 SEEN /hpf 0-5 [facility] Work Phone: Basophils/100 WBC (Bld) 0.5 % 0-1 [facility] Work Phone: Bilirubin [Mass/Vol] 0.30 mg/dL 0.20-1.00 [facility] Work Phone: Comment on above: For patients on eltr ombopag therapy, use of Dimension Hatch TBIL is not recommended. Chloride [Moles/Vol] 102 mmol/L 98-107 [facility] Work Phone: Eosinophils/100 WBC (Bld) 3.2 % 0-5 [facility] Work Phone: Glucose [Mass/Vol] 143 mg/dL 74-106 [facility] Work Phone: Comment on above: Fasting Glucose resu lt greater than or equal to 126 mg/dL suggests DIABETES MELLITUS per A.D.A. criteria. Neutrophils (Bld) [#/Vol] 4.5 10*3/uL 2.0-7.7 [facility] Work Phone: Neutrophils/100 WBC (Bld) 54.7 % 47-70 [facility] Work Phone: Potassium [Moles/Vol] 4.9 mmol/L 3.5-5.1 [facility] Work Phone: Comment on above: Moderate Hemolysis, Result may be falsely increased. Protein [Mass/Vol] 8.3 g/dL 6.4-8.2 [facility] Work Phone: Sodium [Moles/Vol] 136 mmol/L 136-145 [facility] Work Phone: WBC (Bld) [#/Vol] 8.1 10*3/uL 4.4-11.0 [facility] Work Phone: Bilirubin Test strip Ql (U)o n 07-14-2022 Bilirubin Ql (U) Negative Negative [facility] Work Phone: [phone] Blood erythrocytes count (nu mber/volume)on 07-14-2022 RBC (Bld) [#/Vol] 4.15 10*6/uL 4.2-5.4 [facility] Work Phone: Blood hemoglobin measurement (mass/volume)on 07-14-2022 Hemoglobin (Bld) [Mass/Vol] 12.0 g/dL 12.0-15.0 [facility] Work Phone: Blood lymphocytes/100 leukoc yteson 07-14-2022 Lymphocytes/100 WBC (Bld) 34.4 % 19-41 [facility] Work Phone: Blood monocytes/100 leukocyt eson 07-14-2022 Monocytes/100 WBC (Bld) 6.8 % 0-10 [facility] Work Phone: Blood platelet mean volumeon 07-14-2022 Platelet mean volume (Bld) [Entitic vol] 10.2 fL 6.2-12.0 [facility] Work Phone: Determination of erythrocyte mean corpuscular volume (MCV)on 07-14-2022 MCV (RBC) [Entitic vol] 90.8 fL 81-99 [facility] Work Phone: [phone] Hematocrit Auto (Bld) [Volum e fraction]on 07-14-2022 Hematocrit (Bld) [Volume fraction] 37.7 % 37-47 [facility] Work Phone: [phone] Ketones Test strip Ql (U)on 07-14-2022 Ketones Ql (U) Negative Negative [facility] Work Phone: [phone] Laboratory - Chemistry and C hemistry - challengeon 07-14-2022 ALP [Catalytic activity/Vol] 131 U/L 45-117 [facility] Work Phone: [phone] ALT [Catalytic activity/Vol] 33 U/L 13-56 [facility] Work Phone: [phone] CO2 [Moles/Vol] 31.0 mmol/L 21.0-32.0 [facility] Work Phone: [phone] Globulin (S) [Mass/Vol] 5.0 g/dL 2.2-4.2 [facility] Work Phone: [phone] Urea nitrogen/Creatinine [Mass ratio] 14.7 mg/mg 10-20 [facility] Work Phone: [phone] Laboratory - Hematology and Cell countson 07-14-2022 Erythrocyte distribution width (RBC) [Entitic vol] 49.9 fL 35.1-43.9 [facility] Work Phone: [phone] Erythrocyte distribution width (RBC) [Ratio] 15.1 % 11.6-14.6 [facility] Work Phone: [phone] Immature granulocytes/100 WBC (Bld) 0.400 % 0.0-0.9 [facility] Work Phone: [phone] Comment on above: IG% - Immature Granu locytes (promyelocytes, myelocytes and metamyelocytes) > 1% indicates that a LEFT SHIFT is Present. MCH (RBC) [Entitic mass] 28.9 pg 27.0-32.0 [facility] Work Phone: Nucleated RBC/100 WBC (Bld) [Ratio] 0 % 0-5 [facility] Work Phone: MCHC Auto (RBC) [Mass/Vol]on 07-14-2022 MCHC (RBC) [Mass/Vol] 31.8 g/dL 32-36 [facility] Work Phone: Mucus LM Ql (Urine sed)on Mucus Ql (Urine sed) 0 SEEN /hpf [facility] Work Phone: [phone] Nitrite Test strip Ql (U)on 07-14-2022 Nitrite Ql (U) Negative Negative [facility] Work Phone: No Panel Informationon 07-14 Estimated Creatinine Clearance Calc 40.37 ml/min [facility] Work Phone: Estimated GFR (MDRD) Amer 73 mL/min >60 [facility] Work Phone: Comment on above: GFR Calc Estimated GFR (MDRD) Non-Af Amer 60 mL/min >60 [facility] Work Phone: Comment on above: Non- GFR Calc Platelets bldon 07-14-2022 Platelets (Bld) [#/Vol] 267 10*3/uL 150-450 [facility] Work Phone: Protein Test strip Ql (U)on 07-14-2022 Protein Ql (U) 30 mg/dl Negative [facility] Work Phone: [phone] Serum or plasma albumin melanie urement (mass/volume)on 07-14-2022 Albumin [Mass/Vol] 3.3 g/dL 3.2-5.0 [facility] Work Phone: [phone] Serum or plasma albumin/glob ulin mass ratioon 07-14-2022 Albumin/Globulin [Mass ratio] 0.7 {ratio} 0.9-2.4 [facility] Work Phone: [phone] Serum or plasma calcium melanie urement (mass/volume)on 07-14-2022 Calcium [Mass/Vol] 11.4 mg/dL 8.5-10.1 [facility] Work Phone: [phone] Serum or plasma creatinine m easurement (mass/volume)on 07-14-2022 Creatinine [Mass/Vol] 0.95 mg/dL 0.55-1.02 [facility] Work Phone: Comment on above: The validity of the calculated GFR & GFRAA in patients over 70 years has not been determined. Clinical correlation is essential. Serum or plasma urea nitroge n measurement (mass/volume)on 07-14-2022 Urea nitrogen [Mass/Vol] 14 mg/dL 7-18 [facility] Work Phone: Squamous epithelial cells de tection in urine sediment by light microscopyon 07-14-2022 Epithelial cells.squamous LM Ql (Urine sed) 0-5 SEEN /hpf 5-10 [facility] Work Phone: Thin prep Papanicolaou smear with manual screeningon 07-14-2022 Thin prep Papanicolaou smear with manual screening 44 U/L 15-37 [facility] Work Phone: Comment on above: Moderate Hemolysis, Result may be falsely increased. Thin prep Papanicolaou smear with manual screening 3 5-15 [facility] Work Phone: Urine blood detectionon 07-01 RBC Ql (U) 25 /ul Negative [facility] Work Phone: RBC Ql (U) 0 SEEN /hpf 0-5 [facility] Work Phone: Urine clarityon 07-14-2022 Clarity (U) Sl. Cloudy Clear [facility] Work Phone: Urine color determinationon 07-14-2022 Color (U) Yellow Yellow [facility] Work Phone: Urine glucose detectionon Glucose Ql (U) 1000 mg/dl Normal [facility] Work Phone: Urine leukocyte esterase det ection by dipstickon 07-14-2022 Leukocyte esterase Test strip Ql (U) 500 /ul Negative [facility] Work Phone: [phone] Urine pHon 07-14-2022 pH (U) 6.0 [pH] 5.0 - 8.0 [facility] Work Phone: Urine sediment bacteria coun t by microscopy (number/high power field)on 07-14-2022 Bacteria LM.HPF (Urine sed) [#/Area] 3 /[HPF] None Seen [facility] Work Phone: Urine specific gravity measu rementon 07-14-2022 Specific gravity (U) [Rel density] 1.015 1.002-1.030 [facility] Work Phone: Urobilinogen Auto test strip Ql (U)on 07-14-2022 Urobilinogen Ql (U) Normal mg/dl Normal [facility] Work Phone: CBC W Auto Differential pane l (Bld)on 05-07-2022 Basophils (Bld) [#/Vol] 0.05 10*3/uL Normal <0.11 [facility] Comment on above: Order Comment: Speci men Type: BLOOD SPECIMEN Ordering Facility: [facility] Address: [address] [place] [address] Performed By: #### 5 7021-8 #### [facility] CLIA [id number] [address] [place] [address] [place] Basophils/100 WBC (Bld) 0.7 % Normal [facility] Comment on above: Order Comment: Speci men Type: BLOOD SPECIMEN Ordering Facility: [facility] Address: [address] [place] [address] Performed By: #### 5 7021-8 #### [facility] CLIA [id number] [address] [place] [address] [place] Differential cell count method Nom (Bld) Auto Normal [facility] Comment on above: Order Comment: Speci men Type: BLOOD SPECIMEN Ordering Facility: [facility] Address: [address] [address] Performed By: #### 5 7021-8 #### [facility] CLIA [id number] [address] [place] [address] [place] Eosinophils (Bld) [#/Vol] 0.32 10*3/uL Normal <0.46 [facility] Comment on above: Order Comment: Speci men Type: BLOOD SPECIMEN Ordering Facility: [facility] Address: [address] [place] [address] Performed By: #### 5 7021-8 #### [facility] CLIA [id number] [address] [place] [address] [place] Eosinophils/100 WBC (Bld) 4.7 % Normal [facility] Comment on above: Order Comment: Speci men Type: BLOOD SPECIMEN Ordering Facility: [facility] Address: [address] [place] [address] Performed By: #### 5 7021-8 #### [facility] CLIA [id number] [address] [place] [address] [place] Erythrocyte distribution width (RBC) [Ratio] 14.6 % Normal 11.5-15.0 [facility] Comment on above: Order Comment: Speci men Type: BLOOD SPECIMEN Ordering Facility: [facility] Address: [address] [place] [address] Performed By: #### 5 7021-8 #### [facility] CLIA [id number] [address] [place] [address] [place] Hematocrit (Bld) [Volume fraction] 37.2 % Normal 36.0-46.0 [facility] Comment on above: Order Comment: Speci men Type: BLOOD SPECIMEN Ordering Facility: [facility] Address: [address] [place], [place] [address] Performed By: #### 5 7021-8 #### [facility] CLIA [id number] [address] [place] [address] [place] Hemoglobin (Bld) [Mass/Vol] 12.0 g/dL Normal 11.5-15.5 [facility] Comment on above: Order Comment: Speci men Type: BLOOD SPECIMEN Ordering Facility: [facility] Address: [address] [place] [address] Performed By: #### 5 7021-8 #### [facility] CLIA [id number] [address] [place] [address] [place] IMMATURE GRAN % 0.1 % Normal [facility] Comment on above: Order Comment: Speci men Type: BLOOD SPECIMEN Ordering Facility: [facility] Address: [address] [place] [address] Performed By: #### 5 7021-8 #### [facility] CLIA [id number] [address] [place] [address] [place] IMMATURE GRAN ABS <0.03 Normal <0.10 [facility] Comment on above: Order Comment: Speci men Type: BLOOD SPECIMEN Ordering Facility: [facility] Address: [address] [place] [address] Performed By: #### 5 7021-8 #### [facility] CLIA [id number] [address] [place] [address] [place] Lymphocytes (Bld) [#/Vol] 2.03 10*3/uL Normal 1.00-4.0 0 [facility] Comment on above: Order Comment: Speci men Type: BLOOD SPECIMEN Ordering Facility: [facility] Address: [address] [place], [place] [address] Performed By: #### 5 7021-8 #### [facility] CLIA [id number] [address] [place] [address] [place] Lymphocytes/100 WBC (Bld) 29.7 % Normal [facility] Comment on above: Order Comment: Speci men Type: BLOOD SPECIMEN Ordering Facility: [facility] Address: [address] [place] [address] Performed By: #### 5 7021-8 #### [facility] CLIA [id number] [address] [place] [address] [place] MCH (RBC) [Entitic mass] 28.5 pg Normal 26.0-34.0 [facility] Comment on above: Order Comment: Speci men Type: BLOOD SPECIMEN Ordering Facility: [facility] Address: [address] [place] [address] Performed By: #### 5 7021-8 #### [facility] CLIA [id number] [address] [place] [address] [place] MCHC (RBC) [Mass/Vol] 32.3 g/dL Normal 30.5-36.0 [facility] Comment on above: Order Comment: Speci men Type: BLOOD SPECIMEN Ordering Facility: [facility] Address: [address] [place] [address] Performed By: #### 5 7021-8 #### [facility] CLIA [id number] [address] [place] [address] [place] MCV (RBC) [Entitic vol] 88.4 fL Normal 80.0-100.0 [facility] Comment on above: Order Comment: Speci men Type: BLOOD SPECIMEN Ordering Facility: [facility] Address: [address] [place] [address] Performed By: #### 5 7021-8 #### [facility] CLIA [id number] [address] [place] [address] [place] Monocytes (Bld) [#/Vol] 0.47 10*3/uL Normal <0.87 [facility] Comment on above: Order Comment: Speci men Type: BLOOD SPECIMEN Ordering Facility: [facility] Address: [address] [place] [address] Performed By: #### 5 7021-8 #### [facility] CLIA [id number] [address] [place] [address] [place] Monocytes/100 WBC (Bld) 6.9 % Normal [facility] Comment on above: Order Comment: Speci men Type: BLOOD SPECIMEN Ordering Facility: [facility] Address: [address] [place] [address] Performed By: #### 5 7021-8 #### [facility] CLIA [id number] [address] [place] [address] [place] Neutrophils (Bld) [#/Vol] 3.96 10*3/uL Normal 1.45-7.5 0 [facility] Comment on above: Order Comment: Speci men Type: BLOOD SPECIMEN Ordering Facility: [facility] Address: [address] [place] [address] Performed By: #### 5 7021-8 #### [facility] CLIA [id number] [address] [place] [address] [place] Neutrophils/100 WBC (Bld) 57.9 % Normal [facility] Comment on above: Order Comment: Speci men Type: BLOOD SPECIMEN Ordering Facility: [facility] Address: [address] [place], [place] [address] Performed By: #### 5 7021-8 #### [facility] CLIA [id number] [address] [place] [address] [place] Nucleated RBC (Bld) [#/Vol] 10*3/uL Normal <0.01 [facility] Comment on above: Order Comment: Speci men Type: BLOOD SPECIMEN Ordering Facility: [facility] Address: [address] [place], [place] [address] Performed By: #### 5 7021-8 #### [facility] CLIA [id number] [address] [place] [address] [place] Nucleated RBC/100 WBC (Bld) [Ratio] 0.0 /100 WBC Normal [facility] Comment on above: Order Comment: Speci men Type: BLOOD SPECIMEN Ordering Facility: [facility] Address: [address] [place], [place] [address] Performed By: #### 5 7021-8 #### [facility] CLIA [id number] [address] [place] [address] [place] Platelet mean volume (Bld) [Entitic vol] 10.0 fL Normal 9.0-12.7 [facility] Comment on above: Order Comment: Speci men Type: BLOOD SPECIMEN Ordering Facility: [facility] Address: [address] [place], [place] [address] Performed By: #### 5 7021-8 #### [facility] CLIA [id number] [address] [place] [address] [place] Platelets (Bld) [#/Vol] 246 10*3/uL Normal 150-400 [facility] Comment on above: Order Comment: Speci men Type: BLOOD SPECIMEN Ordering Facility: [facility] Address: [address] [place], [place] [address] Performed By: #### 5 7021-8 #### [facility] CLIA [id number] [address] [place] [address] [place] RBC (Bld) [#/Vol] 4.21 10*6/uL Normal 3.90-5.20 [facility] Comment on above: Order Comment: Speci men Type: BLOOD SPECIMEN Ordering Facility: [facility] Address: [address] [place], [place] [address] Performed By: #### 5 7021-8 #### [facility] CLIA [id number] [address] [place] [address] [place] WBC (Bld) [#/Vol] 6.84 10*3/uL Normal 3.70-11.00 [facility] Comment on above: Order Comment: Speci men Type: BLOOD SPECIMEN Ordering Facility: [facility] Address: [address] [place], [place] [address] Performed By: #### 5 7021-8 #### [id number] [address] [place] [address] [facility] CNOVSPon 05-07-2022 CNOVSP Visit (SP) Office (HEMAWS) ---- OLGA DONALDSON ([id number]) 1945 F Date Time Provider Department 05/07/22 1:30 PM LASHONDA IRAHETA During your visit today, we recorded the following information about you: Temperature Pulse Blood pressure Weight 97.2 degrees 66/minute 160/68 73.7 kg Height 1.581 m 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 APRN.OVERHEAD WORKER 05/07/2022 2:25 PM Signed Chief Complaint Patient [...] an every 2-week basis for 4 cycles ([id number]). Completed a year of trastuzumab 06/16/06. Referred back or anemia. Admitted to [facility] 12/02/2019 for chest pain with ambulation. [...] 1.00 - 4.00 k/uL 2.70 2.30 2.03 [place]% % 7.0 6.6 6.9 Abs [place] <0.87 k/uL 0.49 0.47 0.47 Eosin% % 4.9 3.2 4.7 Abs Eosin <0.46 k/uL 0.34 0.23 0.32 Baso% % 0.7 0.6 0.7 Abs Baso <0.11 k/uL 0.05 0.04 0.05 Immature (more content not included)... Normal [facility] Ferritin SerPl-mCncon 2021 Ferritin [Mass/Vol] 808.0 ng/mL High 14.7-205.1 [facility] Comment on above: Order Comment: Speci men Type: BLOOD SPECIMEN Ordering Facility: [facility] Address: [address] [place] [address] Performed By: #### 5 0190-8, 6-4 #### [facility] CLIA [id number] [address] [place] [address] OF [facility] Iron and Iron binding capaci panel 05-07-2022 Iron [Mass/Vol] 38 ug/dL Low 41-186 [facility] Comment on above: Order Comment: Speci men Type: BLOOD SPECIMEN Ordering Facility: [facility] Address: [address] [place] [address] Performed By: #### 5 0190-8, 6-4 #### [facility] CLIA [id number] [address] [place] [address] [facility] Iron binding capacity [Mass/Vol] 240 ug/dL Normal 232-386 [facility] Comment on above: Order Comment: Speci men Type: BLOOD SPECIMEN Ordering Facility: [facility] Address: [address] [place] [address] Performed By: #### 5 0190-8, 6-4 #### [facility] CLIA [id number] [address] [place] [address] STATES OF [facility] Iron/TIBC [Molar ratio] 15.8 % Normal 15.0-57.0 [facility] Comment on above: Order Comment: Speci men Type: BLOOD SPECIMEN Ordering Facility: [facility] Address: [address] [place] [address] Performed By: #### 5 0190-8, 6-4 #### [facility] CLIA [id number] [address] [place] [address] [place] CNPNon 02-10-2022 CNPN Telephone (HEMAWS) ---- OLGA DONALDSON ([id number]) 1945 F Date Time Provider Department 02/10/22 [...] Date Reviewed: 05/07/2021 Reviewed by: 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 APRN.OVERHEAD WORKER - Fully Assessed Reason for Visit: Results [...] MIST) 0.65 % nasal spray Use 1 [place] in the nose as needed. - diltiazem [...] by STACIE VARNER LPN on 02/10/22 Normal [facility] CBC W Auto Differential pane l (Bld)on 02-03-2022 Basophils (Bld) [#/Vol] 0.04 10*3/uL Normal <0.11 [facility] Comment on above: Order Comment: Speci men Type: BLOOD SPECIMEN Ordering [facility]: [facility] Address: [address] [place] [address] Performed By: #### 5 7021-8 #### [facility] CLIA [id number] [address] [place] [address] [place] Basophils/100 WBC (Bld) 0.6 % Normal [facility] Comment on above: Order Comment: Speci men Type: BLOOD SPECIMEN Ordering Facility: [facility] Address: [address] [place] [address] Performed By: #### 5 7021-8 #### [facility] CLIA [id number] [address] [place] [address] [place] Differential cell count method Nom (Bld) Auto Normal [facility] Comment on above: Order Comment: Speci men Type: BLOOD SPECIMEN Ordering Facility: [facility] Address: [address] [place] [address] Performed By: #### 5 7021-8 #### [facility] CLIA [id number] [address] [place] [address] [place] Eosinophils (Bld) [#/Vol] 0.23 10*3/uL Normal <0.46 [facility] Comment on above: Order Comment: Speci men Type: BLOOD SPECIMEN Ordering Facility: [facility] Address: [address] [place] [address] Performed By: #### 5 7021-8 #### [facility] CLIA [id number] [address] [place] [address] [place] Eosinophils/100 WBC (Bld) 3.2 % Normal [facility] Comment on above: Order Comment: Speci men Type: BLOOD SPECIMEN Ordering Facility: [facility] Address: [address] [place] [address] Performed By: #### 5 7021-8 #### [facility] CLIA [id number] [address] [place] [address] Erythrocyte distribution width (RBC) [Ratio] 14.3 % Normal 11.5-15.0 [facility] Comment on above: Order Comment: Speci men Type: BLOOD SPECIMEN Ordering Facility: [facility] Address: [address] [place] [address] Performed By: #### 5 7021-8 #### [facility] CLIA [id number] [address] [place] [address] STATES OF [facility] Hematocrit (Bld) [Volume fraction] 39.7 % Normal 36.0-46.0 [facility] Comment on above: Order Comment: Speci men Type: BLOOD SPECIMEN Ordering Facility: [facility] Address: [address] [place] [address] Performed By: #### 5 7021-8 #### [id number] [address] [place] [address] [place] Hemoglobin (Bld) [Mass/Vol] 12.8 g/dL Normal 11.5-15.5 [facility] Comment on above: Order Comment: Speci men Type: BLOOD SPECIMEN Ordering Facility: [facility] Address: [address] [place], [place] [address] Performed By: #### 5 7021-8 #### [facility] CLIA [id number] [address] [place] [address] [place] IMMATURE GRAN % 0.3 % Normal [facility] Comment on above: Order Comment: Speci men Type: BLOOD SPECIMEN Ordering Facility: [facility] Address: [address] [place] [address] Performed By: #### 5 7021-8 #### [facility] CLIA [id number] [address] [place] [address] [place] IMMATURE GRAN ABS <0.03 Normal <0.10 [facility] Comment on above: Order Comment: Speci men Type: BLOOD SPECIMEN Ordering Facility: [facility] Address: [address] [place] [address] Performed By: #### 5 7021-8 #### [facility] CLIA [id number] [address] [place] [address] [place] Lymphocytes (Bld) [#/Vol] 2.30 10*3/uL Normal 1.00-4.0 0 [facility] Comment on above: Order Comment: Speci men Type: BLOOD SPECIMEN Ordering Facility: [facility] Address: [address] [place] [address] Performed By: #### 5 7021-8 #### [facility] [id number] [address] [place] [address] [place] Lymphocytes/100 WBC (Bld) 32.1 % Normal [facility] Comment on above: Order Comment: Speci men Type: BLOOD SPECIMEN Ordering Facility: [facility] Address: [address] [place] [address] Performed By: #### 5 7021-8 #### [facility] [id number] [address] [place] [address] [place] MCH (RBC) [Entitic mass] 28.8 pg Normal 26.0-34.0 [facility] Comment on above: Order Comment: Speci men Type: BLOOD SPECIMEN Ordering Facility: [facility] Address: [address] [place] [address] Performed By: #### 5 7021-8 #### [facility] CLIA [id number] [address] [place] [address] [place] MCHC (RBC) [Mass/Vol] 32.2 g/dL Normal 30.5-36.0 [facility] Comment on above: Order Comment: Speci men Type: BLOOD SPECIMEN Ordering Facility: [facility] Address: [address] [place], [place] [address] Performed By: #### 5 7021-8 #### [facility] CLIA [id number] [address] [place] [address] [place] MCV (RBC) [Entitic vol] 89.4 fL Normal 80.0-100.0 [facility] Comment on above: Order Comment: Speci men Type: BLOOD SPECIMEN Ordering Facility: [facility] Address: [address] [place], [place] [address] Performed By: #### 5 7021-8 #### [facility] CLIA [id number] [address] [place] [address] [place] Monocytes (Bld) [#/Vol] 0.47 10*3/uL Normal <0.87 [facility] Comment on above: Order Comment: Speci men Type: BLOOD SPECIMEN Ordering Facility: [facility] Address: [address] [place] [address] Performed By: #### 5 7021-8 #### [facility] CLIA [id number] [address] [place] [address] [place] Monocytes/100 WBC (Bld) 6.6 % Normal [facility] Comment on above: Order Comment: Speci men Type: BLOOD SPECIMEN Ordering Facility: [facility] Address: [address] [place], [place] [address] Performed By: #### 5 7021-8 #### [facility] CLIA [id number] [address] [place] [address] [place] Neutrophils (Bld) [#/Vol] 4.11 10*3/uL Normal 1.45-7.5 0 [facility] Comment on above: Order Comment: Speci men Type: BLOOD SPECIMEN Ordering Facility: [facility] Address: [address] [place], [place] [address] Performed By: #### 5 7021-8 #### [facility] CLIA [id number] [address] [place] [address] [place] Neutrophils/100 WBC (Bld) 57.2 % Normal [facility] Comment on above: Order Comment: Speci men Type: BLOOD SPECIMEN Ordering Facility: [facility] Address: [address] [place] [address] Performed By: #### 5 7021-8 #### [facility] CLIA [id number] [address] [place] [address] [place] Nucleated RBC (Bld) [#/Vol] 10*3/uL Normal <0.01 [facility] Comment on above: Order Comment: Speci men Type: BLOOD SPECIMEN Ordering Facility: [facility] Address: [address] [place], [place] [address] Performed By: #### 5 7021-8 #### [facility] CLIA [id number] [address] [place] [address] [place] Nucleated RBC/100 WBC (Bld) [Ratio] 0.0 /100 WBC Normal [facility] Comment on above: Order Comment: Speci men Type: BLOOD SPECIMEN Ordering Facility: [facility] Address: [address] [place], [place] [address] Performed By: #### 5 7021-8 #### [facility] CLIA [id number] [address] [place] [address] [place] Platelet mean volume (Bld) [Entitic vol] 10.3 fL Normal 9.0-12.7 [facility] Comment on above: Order Comment: Speci men Type: BLOOD SPECIMEN Ordering Facility: [facility] Address: [address] [place], [place] [address] Performed By: #### 5 7021-8 #### [facility] CLIA [id number] [address] [place] [address] [place] Platelets (Bld) [#/Vol] 265 10*3/uL Normal 150-400 [facility] Comment on above: Order Comment: Speci men Type: BLOOD SPECIMEN Ordering Facility: [facility] Address: [address] [place] [address] Performed By: #### 5 7021-8 #### [facility] CLIA [id number] [address] [place] [address] [place] RBC (Bld) [#/Vol] 4.44 10*6/uL Normal 3.90-5.20 [facility] Comment on above: Order Comment: Speci men Type: BLOOD SPECIMEN Ordering Facility: [facility] Address: [address] [place] [address] Performed By: #### 5 7021-8 #### [facility] CLIA [id number] [address] [place] [address] [place] WBC (Bld) [#/Vol] 7.17 10*3/uL Normal 3.70-11.00 [facility] Comment on above: Order Comment: Speci men Type: BLOOD SPECIMEN Ordering Facility: [facility] Address: [address] [place] [address] Performed By: #### 5 7021-8 #### [facility] CLIA [id number] [address] [place] [address] [place] FERRITIN BLDon 02-03-2022 Ferritin [Mass/Vol] 1132.0 ng/mL High 14.7-205.1 [facility] Comment on above: Order Comment: Speci men Type: BLOOD SPECIMEN Ordering Facility: [facility] Address: [address] [place] [address] Performed By: #### F ERR, IRON #### [facility] CLIA [id number] [address] [place] [address] [place] IRON + TIBCon 02-03-2022 Iron [Mass/Vol] 66 ug/dL Normal 41-186 [facility] Comment on above: Order Comment: Speci men Type: BLOOD SPECIMEN Ordering Facility: [facility] Address: [address] [place] [address] Performed By: #### F ERR, IRON #### [facility] CLIA [id number] [address] [place] [address] [place] Iron binding capacity [Mass/Vol] 286 ug/dL Normal 232-386 [facility] Comment on above: Order Comment: Speci men Type: BLOOD SPECIMEN Ordering Facility: [facility] Address: [address] [place] [address] Performed By: #### F ERR, IRON #### [facility] CLIA [id number] [address] [place] [address] OF [facility] Iron/TIBC [Molar ratio] 23 % Normal 15-57 [facility] Comment on above: Order Comment: Speci men Type: BLOOD SPECIMEN Ordering Facility: [facility] Address: [address] [place] [address] Performed By: #### F ERR, IRON #### [facility] CLIA [id number] [address] [place] [address] [place] Bacteria identified Anaer cx Nom (Unsp spec)on 12-02-2021 Anaerobic microbial culture No anaerobic bacteria isolated. [facility] Work Phone: [phone] Bacteria identified Cx Nom ( Wound)on 12-02-2021 Wound Culture Negative [facility] Work Phone: [phone] Wound Culture Staphylococcus epidermidis [facility] Work Phone: [phone] Wound Culture Corynebacterium striatum [facility] Work Phone: [phone] Gram stain for investigation of transfusion reactionon 12-02-2021 Microscopic observation Gram stain Nom (Unsp spec) [facility] Work Phone: [phone] CBC W Auto Differential pane l (Bld)on 11-04-2021 Basophils (Bld) [#/Vol] 0.05 10*3/uL Normal <0.11 [facility] Comment on above: Order Comment: Speci men Type: BLOOD SPECIMEN Ordering Facility: [facility] Address: [address] [place] [address] Performed By: #### 5 7021-8 #### [facility] CLIA [id number] [address] [place] [address] [place] Basophils/100 WBC (Bld) 0.7 % Normal [facility] Comment on above: Order Comment: Speci men Type: BLOOD SPECIMEN Ordering Facility: [facility] Address: [address] [place] [address] Performed By: #### 5 7021-8 #### [facility] CLIA [id number] [address] [place] [address] [place] Differential cell count method Nom (Bld) Auto Normal [facility] Comment on above: Order Comment: Speci men Type: BLOOD SPECIMEN Ordering Facility: [facility] Address: [address] [place] [address] Performed By: #### 5 7021-8 #### [facility] CLIA [id number] [address] [place] [address] [place] Eosinophils (Bld) [#/Vol] 0.34 10*3/uL Normal <0.46 [facility] Comment on above: Order Comment: Speci men Type: BLOOD SPECIMEN Ordering Facility: [facility] Address: [address] [place] [address] Performed By: #### 5 7021-8 #### [facility] CLIA [id number] [address] [place] [address] [place] Eosinophils/100 WBC (Bld) 4.9 % Normal [facility] Comment on above: Order Comment: Speci men Type: BLOOD SPECIMEN Ordering Facility: [facility] Address: [address] [place] [address] Performed By: #### 5 7021-8 #### [facility] CLIA [id number] [address] [place] [address] Erythrocyte distribution width (RBC) [Ratio] 13.3 % Normal 11.5-15.0 [facility] Comment on above: Order Comment: Speci men Type: BLOOD SPECIMEN Ordering Facility: [facility] Address: [address] [place] [address] Performed By: #### 5 7021-8 #### [facility] CLIA [id number] [address] [place] [address] STATES OF [facility] Hematocrit (Bld) [Volume fraction] 40.4 % Normal 36.0-46.0 [facility] Comment on above: Order Comment: Speci men Type: BLOOD SPECIMEN Ordering Facility: [facility] Address: [address] [place] [address] Performed By: #### 5 7021-8 #### [id number] [address] [place] [address] [place] Hemoglobin (Bld) [Mass/Vol] 12.9 g/dL Normal 11.5-15.5 [facility] Comment on above: Order Comment: Speci men Type: BLOOD SPECIMEN Ordering Facility: [facility] Address: [address] [place], [place] [id number] Performed By: #### 5 7021-8 #### [facility] CLIA [id number] [address] [place] [address] [place] IMMATURE GRAN % 0.1 % Normal [facility] Comment on above: Order Comment: Speci men Type: BLOOD SPECIMEN Ordering Facility: [facility] Address: [address] [place] [address] Performed By: #### 5 7021-8 #### [facility] CLIA [id number] [address] [place] [address] [place] IMMATURE GRAN ABS <0.03 Normal <0.10 [facility] Comment on above: Order Comment: Speci men Type: BLOOD SPECIMEN Ordering Facility: [facility] Address: [address] [place] [address] Performed By: #### 5 7021-8 #### [facility] CLIA [id number] [address] [place] [address] [place] Lymphocytes (Bld) [#/Vol] 2.70 10*3/uL Normal 1.00-4.0 0 [facility] Comment on above: Order Comment: Speci men Type: BLOOD SPECIMEN Ordering Facility: [facility] Address: [address] [place] [address] Performed By: #### 5 7021-8 #### [facility] CLIA [id number] [address] [place] [address] [place] Lymphocytes/100 WBC (Bld) 38.6 % Normal [facility] Comment on above: Order Comment: Speci men Type: BLOOD SPECIMEN Ordering Facility: [facility] Address: [address] [place] [address] Performed By: #### 5 7021-8 #### [id number] [address] [place] [address] [place] MCH (RBC) [Entitic mass] 28.9 pg Normal 26.0-34.0 [facility] Comment on above: Order Comment: Speci men Type: BLOOD SPECIMEN Ordering Facility: [facility] Address: [address] [place] [address] Performed By: #### 5 7021-8 #### [facility] CLIA [id number] [address] [place] [address] [place] MCHC (RBC) [Mass/Vol] 31.9 g/dL Normal 30.5-36.0 [facility] Comment on above: Order Comment: Speci men Type: BLOOD SPECIMEN Ordering Facility: [facility] Address: [address] [place], [place] [address] Performed By: #### 5 7021-8 #### [facility] CLIA [id number] [address] [place] [address] [place] MCV (RBC) [Entitic vol] 90.4 fL Normal 80.0-100.0 [facility] Comment on above: Order Comment: Speci men Type: BLOOD SPECIMEN Ordering Facility: [facility] Address: [address] [place] [address] Performed By: #### 5 7021-8 #### [facility] CLIA [id number] [address] [place] [address] [place] Monocytes (Bld) [#/Vol] 0.49 10*3/uL Normal <0.87 [facility] Comment on above: Order Comment: Speci men Type: BLOOD SPECIMEN Ordering Facility: [facility] Address: [address] [place] [address] Performed By: #### 5 7021-8 #### [facility] CLIA [id number] [address] [place] [address] [place] Monocytes/100 WBC (Bld) 7.0 % Normal [facility] Comment on above: Order Comment: Speci men Type: BLOOD SPECIMEN Ordering Facility: [facility] Address: [address] [place], [place] [address] Performed By: #### 5 7021-8 #### [facility] CLIA [id number] [address] [place] [address] [place] Neutrophils (Bld) [#/Vol] 3.40 10*3/uL Normal 1.45-7.5 0 [facility] Comment on above: Order Comment: Speci men Type: BLOOD SPECIMEN Ordering Facility: [facility] Address: [address] [place], [place] [address] Performed By: #### 5 7021-8 #### [facility] CLIA [id number] [address] [place] [address] [place] Neutrophils/100 WBC (Bld) 48.7 % Normal [facility] Comment on above: Order Comment: Speci men Type: BLOOD SPECIMEN Ordering Facility: [facility] Address: [address] [place], [place] [address] Performed By: #### 5 7021-8 #### [facility] CLIA [id number] [address] [place] [address] [place] Nucleated RBC (Bld) [#/Vol] 10*3/uL Normal <0.01 [facility] Comment on above: Order Comment: Speci men Type: BLOOD SPECIMEN Ordering Facility: [facility] Address: [address] [place], [place] [address] Performed By: #### 5 7021-8 #### [facility] CLIA [id number] [address] [place] [address] [place] Nucleated RBC/100 WBC (Bld) [Ratio] 0.0 /100 WBC Normal [facility] Comment on above: Order Comment: Speci men Type: BLOOD SPECIMEN Ordering Facility: [facility] Address: [address] [place], [place] [address] Performed By: #### 5 7021-8 #### [facility] CLIA [id number] [address] [place] [address] [place] Platelet mean volume (Bld) [Entitic vol] 10.1 fL Normal 9.0-12.7 [facility] Comment on above: Order Comment: Speci men Type: BLOOD SPECIMEN Ordering Facility: [facility] Address: [address] [place], [place] [address] Performed By: #### 5 7021-8 #### [facility] CLIA [id number] [address] [place] [address] [place] Platelets (Bld) [#/Vol] 246 10*3/uL Normal 150-400 [facility] Comment on above: Order Comment: Speci men Type: BLOOD SPECIMEN Ordering Facility: [facility] Address: [address] [place] [address] Performed By: #### 5 7021-8 #### [facility] CLIA [id number] [address] [place] [address] [place] RBC (Bld) [#/Vol] 4.47 10*6/uL Normal 3.90-5.20 [facility] Comment on above: Order Comment: Speci men Type: BLOOD SPECIMEN Ordering Facility: [facility] Address: [address] [place] [address] Performed By: #### 5 7021-8 #### [facility] CLIA [id number] [address] [place] [address] [place] WBC (Bld) [#/Vol] 6.99 10*3/uL Normal 3.70-11.00 [facility] Comment on above: Order Comment: Speci men Type: BLOOD SPECIMEN Ordering Facility: [facility] Address: [address] [place] [address] Performed By: #### 5 7021-8 #### [facility] CLIA [id number] [address] [place] [address] [place] FERRITIN BLDon 11-04-2021 Ferritin [Mass/Vol] 1428.0 ng/mL High 14.7-205.1 [facility] Comment on above: Order Comment: Speci men Type: BLOOD SPECIMEN Ordering Facility: [facility] Address: [address] [place] [address] Performed By: #### I EVELIA RUSH #### [facility] CLIA [id number] [address] [place] [address] [place] IRON + TIBCon 11-04-2021 Iron [Mass/Vol] 60 ug/dL Normal 41-186 [facility] Comment on above: Order Comment: Speci men Type: BLOOD SPECIMEN Ordering Facility: [facility] Address: [address] [place] [address] Performed By: #### I VICTOR MANUEL, FERR #### [facility] CLIA [id number] [address] [place] [address] Iron binding capacity [Mass/Vol] 242 ug/dL Normal 232-386 [facility] Comment on above: Order Comment: Speci men Type: BLOOD SPECIMEN Ordering Facility: [facility] Address: [address] [place] [address] Performed By: #### I VICTOR MANUEL, FERR #### [facility] CLIA [id number] [address] [place] [address] Iron/TIBC [Molar ratio] 25 % Normal 15-57 [facility] Comment on above: Order Comment: Speci men Type: BLOOD SPECIMEN Ordering Facility: [facility] Address: [address] [place] [address] Performed By: #### I VICTOR MANUEL, FERR #### [facility] CLIA [id number] [address] [place] [address] [place] Justine 09-29-2021 JOCELYNE Telephone (EVELYN) ---- OLGA DONALDSON ([id number]) 1945 F Date Time Provider Department 09/29/21 [...] Date Reviewed: 05/07/2021 Reviewed by: 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 APRN.OVERHEAD WORKER - Fully Assessed Reason for Visit: Results [95] Follow Up [171] Primary Visit Diagnosis:Anemia, unspecified type [D64.9] Order(s):CBC + DIFF [SQCBCDIF] Order #: [id number] FUTURE COMP METABOLIC PANEL [SQCMP] Order #: [id number] FUTURE PROTEIN ELECTROPHORESIS SERUM W/INTERP [SQSEPG] Order #: [id number] FUTURE MONOCLONAL PROTEIN, SERUM (BLOOD) [SQSERMPA] Order #: [id number] FUTURE Prescriptions as of 04/12/2022 - ascorbic [...] MIST) 0.65 % nasal spray Use 1 [place] in the nose as needed. - diltiazem [...] Specified Conge (more content not included)... Normal [facility] 05-09-2021 JOCELYNE Telephone (EVELYN) ---- OLGA DONALDSON ([id number]) 1945 F Date Time Provider Department 05/09/21 LASHONDA IRAHETA During your visit today, we recorded the following information about you: 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 APRN.CNP 05/09/2021 9:20 AM Signed Please inform pt. that her labs look good. Follow up as scheduled. Thank you. 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 APRN.OVERHEAD WORKER Jocelyn Abernathy 05/09/2021 9:22 AM Signed Pt aware of results. Jocelyn Abernathy Allergies As of Date: 05/09/2021 Noted Allergy Reaction KEFLEX (CEPHALEXIN) 07/02/2005 2 - Rash tape [Other] 07/30/2005 2 - Rash Comments: Nylon tape caused rash. Use paper tape. Also no dark brown bandaids. Spot bandaid ok. PLAVIX (CLOPIDOGREL BISULFATE) 08/04/2011 4 - Hives Date Reviewed: 05/07/2021 Reviewed by: 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 APRN.OVERHEAD WORKER - Fully Assessed Reason for Visit: Results [...] MIST) 0.65 % nasal spray Use 1 [place] in the nose as needed. - diltiazem [...] by STACIE VARNER LPN on 05/09/21 Normal [facility] Laboratory - Specimen inform ationon 03-27-2021 Specimen source Nom (Unsp spec) Stool [facility] No Panel Informationon 03-27 Occult Blood Diagnostic Positive [facility] FERRITIN BLDon 03-22-2021 Ferritin [Mass/Vol] 1064.0 ng/mL High 14.7 - 2 05.1 ng/mL [facility] CULTURE FUNGUSon 02-08-2018 CULTURE FUNGUS 1 Organism Nithya albicans Many Normal [facility] Comment on above: Performed By: #### C /FUN, S/FUN ####[address] [address] STAIN FUNGUSon 01-19-2018 STAIN FUNGUS STAIN FUNGUS --> Status: F 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 Direct exam by Calcofluor stain. Direct exam by Calcofluor stain. Normal [facility] Comment on above: Performed By: #### C /FUN, S/FUN ####[facility] [address] [place] [address] Office Visit: Dede mina 01-13-2017 Adolescent depression screening assessment Adolescent depression screening assessment Invalid Interpretation Code [facility] Work Phone: [phone] Adult depression screening assessment Adolescent depression screening assessment [facility] Work Phone: [phone] Documentation of current medications (procedure) Done Invalid Interpretation Code [facility] Work Phone: [phone] Fall risk assessment Fall risk assessment [facility] Work Phone: [phone] Tobacco smoking status NHIS Never [facility] Work Phone: [phone] Tobacco smoking status NHIS Former smoker [facility] Work Phone: [phone] Tobacco use HS Former smoker Invalid Interpretation Code [facility] Work Phone: [phone] 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 Left ventricular Ejection fraction 70 % [facility] Work Phone: [phone] Office Visiton 08-29-2015 cardiac risk group [facility] Work Phone: [phone] General cardiovascular disease 10Y risk [#] [place].D'Agostted Not enough information [facility] Work Phone: [phone] Replaced Document: Midmark E CG Observationson 08-29-2015 EKG QRS axis 29 deg [facility] Work Phone: [phone] electrocardiogram interpretation Sinus Tachycardia -With rate variation cv = 10.WITHIN NORMAL LIMITS Invalid Interpretation Code [facility] Work Phone: [phone] GE use only - for Link[employer] import when terms are not otherwise specified 411 ms Invalid Interpretation Code [facility] Work Phone: [phone] Interpretation Sinus Tachycardia -With rate variation cv = 10.WITHIN NORMAL LIMITS [facility] Work Phone: [phone] P Galloway 41 deg [facility] Work Phone: [phone] P wave axis, electrocardiogram 41 deg Invalid Interpretation Code [facility] Work Phone: [phone] IN Interval 134 ms [facility] Work Phone: [phone] IN interval, electrocardiogram 134 ms Invalid Interpretation Code [facility] Work Phone: [phone] Pulse (Heart Rate) 109 /min Invalid Interpretation Code [facility] Work Phone: [phone] QRS axis, electrocardiogram 29 deg Invalid Interpretation Code [facility] Work Phone: [phone] QRS Duration 80 ms [facility] Work Phone: [phone] QRS duration, electrocardiogram 80 ms Invalid Interpretation Code [facility] Work Phone: [phone] QT Interval new path ms [facility] Work Phone: [phone] QT interval, electrocardiogram new path ms Invalid Interpretation Code [facility] Work Phone: [phone] QTc Carney 411 ms [facility] Work Phone: [phone] T Galloway 37 deg [facility] Work Phone: [phone] T wave axis, electrocardiogram 37 deg Invalid Interpretation Code [facility] Work Phone: [phone] Bacteria identified Anaer cx Nom (Unsp spec) Anaerobic microbial culture No anaerobic bacteria isolated. [facility] Work Phone: [phone] Bacteria identified Cx Nom ( Wound) Wound Culture Negative [facility] Work Phone: [phone] Wound Culture Staphylococcus epidermidis [facility] Work Phone: [phone] Wound Culture Corynebacterium striatum [facility] Work Phone: [phone] Culture, urine Bacteria identified Cx Nom (U) Klebsiella pneumoniae sp pneum [facility] Work Phone: Gram stain for investigation of transfusion reaction Microscopic observation Gram stain Nom (Unsp spec) [facility] Work Phone: [phone] Vital Signs Date Time Vital Sign Value Performing Clinician Facility 01-26-2025 05:13-0400 Body temperature 98.3 [degF] Dr. Ramone Smiley MD Work Phone: [facility] 01-26-2025 05:13-0400 Diastolic blood pressure 72 mm[Hg] Dr. Ramone Smiley MD Work Phone: [phone])804-214[address] [place] [address] 01-26-2025 05:13-0400 Heart rate 83 /min Dr. Ramone Smiley MD Work Phone: [phone])212-519452 [place] [address] 01-26-2025 05:13-0400 Respiratory rate 18 /min Dr. Ramone Smiley MD Work Phone: [phone])871-739852 [place] [address] 01-26-2025 05:13-0400 SaO2% (BldA) [Mass fraction] 97 % Dr. Ramone Smiley MD Work Phone: 1(413)992-463252 [place] [address] 01-26-2025 05:13-0400 Systolic blood pressure 116 mm[Hg] Dr. Ramone Smiley MD Work Phone: [phone])031-359452 [place] [address] 01-26-2025 03:02-0400 Body height 160.[address] Ramone Smiley MD Work Phone: [phone] [place] [address] 01-26-2025 03:02-0400 Body mass index (BMI) [Ratio] 31.4 kg/m2 Dr. Ramone Smiley MD Work Phone: [phone])782-410352 [place] [address] 01-26-2025 03:02-0400 Body weight 80.[address] Ramone Smiley MD Work Phone: 8(434)318-563352 [place] [address] 01-24-2025 13:57-0400 Body temperature 97.4 [degF] Dr. Ramone Smiley MD Work Phone: 4(637)352-651152 [place] [address] 01-24-2025 13:57-0400 Diastolic blood pressure 68 mm[Hg] Dr. Ramone Smiley MD Work Phone: [phone])749-416852 [place] [address] 01-24-2025 13:57-0400 Heart rate 87 /min Dr. Ramone Smiley MD Work Phone: 1(766)860-542652 [place] [address] 01-24-2025 13:57-0400 Respiratory rate 16 /min Dr. Ramone Smiley MD Work Phone: [phone])177-912652 [place] [address] 01-24-2025 13:57-0400 SaO2% (BldA) [Mass fraction] 97 % Dr. Ramone Smiley MD Work Phone: [phone])[phone] [place] [address] 01-24-2025 13:57-0400 Systolic blood pressure 111 mm[Hg] Dr. Ramone Smiley MD Work Phone: [facility] 01-24-2025 05:23-0400 Body mass index (BMI) [Ratio] 30.7 kg/m2 Dr. Ramone Smiley MD Work Phone: [facility] 01-24-2025 05:23-0400 Body weight 78.[address] Ramone Smiley MD Work Phone: 2(216)431-298637 [place] [address] 01-22-2025 14:00-0400 Inhaled oxygen concentration 24 % Dr. Ramone Smiley MD Work Phone: [phone])[phone] [place] [address] 01-22-2025 11:00-0400 Inhaled oxygen flow rate 2 L/min Dr. Ramone Smiley MD Work Phone: 1(785)544-346152 [place] [address] 01-20-2025 10:06-0400 Body height 160.[address] Ramone Smiley MD Work Phone: 0(083)743-993137 [place] [address] 01-15-2025 18:58-0400 Body temperature 97.9 [degF] Dr. Ramone Smiley MD Work Phone: 7(242)127-943837 [place] [address] 01-15-2025 18:58-0400 Diastolic blood pressure 70 mm[Hg] Dr. Ramone Smiley MD Work Phone: 4(750)945-150737 [place] [address] 01-15-2025 18:58-0400 Heart rate 69 /min Dr. Ramone Smiley MD Work Phone: [facility] 01-15-2025 18:58-0400 Respiratory rate 22 /min Dr. Ramone Smiley MD Work Phone: [facility] 01-15-2025 18:58-0400 SaO2% (BldA) [Mass fraction] 98 % Dr. Ramone Smiley MD Work Phone: [facility] 01-15-2025 18:58-0400 Systolic blood pressure 130 mm[Hg] Dr. Ramone Smiley MD Work Phone: [facility] 01-15-2025 14:14-0400 Body height 160.[address] Ramone Smiley MD Work Phone: 6(071)771-831188 [address] 01-15-2025 14:14-0400 Body mass index (BMI) [Ratio] 32.3 kg/m2 Dr. Ramone Smiley MD Work Phone: 8(044)517-718852 [place] [address] 01-15-2025 14:14-0400 Body weight 82.[address] Ramone Smiley MD Work Phone: 9(579)727-502152 [place] [address] 01-07-2025 17:34-0400 Body temperature 97.6 [degF] Dr. Ramone Smiley MD Work Phone: 2(471)454-373952 [place] [address] 01-07-2025 17:34-0400 Diastolic blood pressure 78 mm[Hg] Dr. Ramone Smiley MD Work Phone: 0(674)892-924852 [place] [address] 01-07-2025 17:34-0400 Heart rate 82 /min Dr. Ramone Smiley MD Work Phone: 3(316)619-454252 [place] [address] 01-07-2025 17:34-0400 Respiratory rate 19 /min Dr. Ramone Smiley MD Work Phone: 7(423)124-715052 [place] [address] 01-07-2025 17:34-0400 SaO2% (BldA) [Mass fraction] 97 % Dr. Ramone Smiley MD Work Phone: 1(773)609-196352 [place] [address] 01-07-2025 17:34-0400 Systolic blood pressure 147 mm[Hg] Dr. Ramone Smiley MD Work Phone: 0(124)847-943152 [place] [address] 01-07-2025 14:56-0400 Body height 160.[address] Ramone Smiley MD Work Phone: 9(904)881-429952 [place] [address] 01-07-2025 14:56-0400 Body mass index (BMI) [Ratio] 31.5 kg/m2 Dr. Ramone Smiley MD Work Phone: 5(684)874-856952 [place] [address] 01-07-2025 14:56-0400 Body weight 80.[address] Ramone Smiley MD Work Phone: 7(021)327-332252 [place] [address] 12-30-2023 14:14-0400 Body temperature 98.9 [degF] Dr. Ramone Smiley Work Phone: [facility] 12-30-2023 14:14-0400 Diastolic blood pressure 60 mm[Hg] Dr. Ramone Smiley Work Phone: [facility] 12-30-2023 14:14-0400 Heart rate 80 /min Dr. Ramone Smiley Work Phone: [facility] 12-30-2023 14:14-0400 Respiratory rate 18 /min Dr. Ramone Smiley Work Phone: [facility] 12-30-2023 14:14-0400 SaO2% (BldA) [Mass fraction] 95 % Dr. Ramone Smiley Work Phone: [facility] 12-30-2023 14:14-0400 Systolic blood pressure 131 mm[Hg] Dr. Ramone Smiley Work Phone: 4(900)515-583437 [place] [address] 12-29-2023 07:09-0400 Inhaled oxygen flow rate 2 L/min Dr. Ramone Smiley Work Phone: [phone] [address] [place], [place] [address] 12-28-2023 11:27-0400 Body height 160.[address] Ramone Smiley Work Phone: [phone] [place] [address] 12-28-2023 11:27-0400 Body mass index (BMI) [Ratio] 27.8 kg/m2 Dr. Ramone Smiley Work Phone: [phone] [place] [address] 12-28-2023 11:27-0400 Body weight 71.[address] Ramone Smiley Work Phone: [facility] 12-27-2023 23:42-0400 Body temperature 97.5 [degF] [facility] 12-27-2023 23:42-0400 Diastolic blood pressure 59 mm[Hg] [facility] 12-27-2023 23:42-0400 Heart rate 77 /min [facility] 12-27-2023 23:42-0400 Respiratory rate 20 /min [facility] 12-27-2023 23:42-0400 SaO2% (BldA) [Mass fraction] 97 % [facility] 12-27-2023 23:42-0400 Systolic blood pressure 159 mm[Hg] [facility] 12-27-2023 22:06-0400 Body height 160.02 cm [facility] 12-27-2023 22:06-0400 Body mass index (BMI) [Ratio] 29.5 kg/m2 [facility] 12-27-2023 22:06-0400 Body weight 75.6 kg [facility] 08-17-2023 13:26-0500 Body temperature 97.1 [degF] Dr. Ramone Smiley Work Phone: [facility] 08-17-2023 13:26-0500 Diastolic blood pressure 65 mm[Hg] Dr. Ramone Smiley Work Phone: [facility] 08-17-2023 13:26-0500 Heart rate 84 /min Dr. Ramone Smiley Work Phone: [facility] 08-17-2023 13:26-0500 Respiratory rate 18 /min Dr. Ramone Smiley Work Phone: [facility] 08-17-2023 13:26-0500 SaO2% (BldA) [Mass fraction] 98 % Dr. Ramone Smiley Work Phone: [facility] 08-17-2023 13:26-0500 Systolic blood pressure 140 mm[Hg] Dr. Ramone Smiley Work Phone: [facility] 08-14-2023 13:28-0500 Body height 160.[address] Ramone Smiley Work Phone: [facility] 08-14-2023 13:28-0500 Body weight 60.[address] Ramone Smiley Work Phone: [facility] 08-13-2023 15:22-0500 Body mass index (BMI) [Ratio] 23.4 kg/m2 Dr. Ramone Smiley Work Phone: [facility] 08-13-2023 14:18-0500 Body temperature 98.6 [degF] Dr. Ramone Smiley Work Phone: [facility] 08-13-2023 14:18-0500 Diastolic blood pressure 59 mm[Hg] Dr. Ramone Smiley Work Phone: [facility] 08-13-2023 14:18-0500 Heart rate 107 /min Dr. Ramone Smiley Work Phone: [facility] 08-13-2023 14:18-0500 Respiratory rate 20 /min Dr. Ramone Smiley Work Phone: [facility] 08-13-2023 14:18-0500 SaO2% (BldA) [Mass fraction] 97 % Dr. Ramone Smiley Work Phone: [facility] 08-13-2023 14:18-0500 Systolic blood pressure 152 mm[Hg] Dr. Ramone Smiley Work Phone: [facility] 08-13-2023 10:03-0500 Body height 160.[address] Ramone Smiley Work Phone: [facility] 08-13-2023 10:03-0500 Body mass index (BMI) [Ratio] 24.5 kg/m2 Dr. Ramone Smiley Work Phone: [facility] 08-13-2023 10:03-0500 Body weight [address] Ramone Smiley Work Phone: [facility] 08-07-2023 20:23-0500 Body temperature 97.6 [degF] Dr. Ramone Smiley Work Phone: [facility] 08-07-2023 20:23-0500 Diastolic blood pressure 51 mm[Hg] Dr. Ramone Smiley Work Phone: [facility] 08-07-2023 20:23-0500 Heart rate 87 /min Dr. Ramone Smiley Work Phone: [facility] 08-07-2023 20:23-0500 Respiratory rate 18 /min Dr. Ramone Smiley Work Phone: [facility] 08-07-2023 20:23-0500 SaO2% (BldA) [Mass fraction] 98 % Dr. Ramone Smiley Work Phone: [facility] 08-07-2023 20:23-0500 Systolic blood pressure 115 mm[Hg] Dr. Ramone Smiley Work Phone: [facility] 07-19-2023 01:01-0500 Diastolic blood pressure 61 mm[Hg] Dr. Ramone Smiley Work Phone: [facility] 07-19-2023 01:01-0500 Heart rate 101 /min Dr. Ramone Smiley Work Phone: [facility] 07-19-2023 01:01-0500 Respiratory rate 20 /min Dr. Ramone Smiley Work Phone: [facility] 07-19-2023 01:01-0500 Systolic blood pressure 145 mm[Hg] Dr. Ramone Smiley Work Phone: [facility] 07-18-2023 23:28-0500 Body mass index (BMI) [Ratio] 25.7 kg/m2 Dr. Ramone Smiley Work Phone: [facility] 07-18-2023 23:28-0500 Body weight 65.[address] Ramone Smiley Work Phone: [facility] 07-18-2023 22:47-0500 Body temperature 97.6 [degF] Dr. Ramone Smiley Work Phone: [facility] 07-18-2023 22:47-0500 SaO2% (BldA) [Mass fraction] 96 % Dr. Ramone Smiley Work Phone: [facility] 07-18-2023 22:44-0500 Body height 160.[address] Ramone Smiley Work Phone: [facility] 07-15-2023 13:24-0500 Body temperature 98.2 [degF] Dr. Ramone Smiley Work Phone: [facility] 07-15-2023 13:24-0500 Diastolic blood pressure 74 mm[Hg] Dr. Ramone Smiley Work Phone: [facility] 07-15-2023 13:24-0500 Heart rate 89 /min Dr. Ramone Smiley Work Phone: [facility] 07-15-2023 13:24-0500 SaO2% (BldA) [Mass fraction] 92 % Dr. Ramone Smiley Work Phone: [facility] 07-15-2023 13:24-0500 Systolic blood pressure 122 mm[Hg] Dr. Ramone Smiley Work Phone: [facility] 01-28-2023 16:36-0400 Diastolic blood pressure 63 mm[Hg] [facility] 01-28-2023 16:36-0400 Heart rate 75 /min [facility] 01-28-2023 16:36-0400 Systolic blood pressure 170 mm[Hg] [facility] 01-28-2023 14:54-0400 Body height 160.02 cm [facility] 01-28-2023 14:54-0400 Body mass index (BMI) [Ratio] 26.9 kg/m2 [facility] 01-28-2023 14:54-0400 Body temperature 97.8 [degF] [facility] 01-28-2023 14:54-0400 Body weight 69 kg [facility] 01-28-2023 14:54-0400 Respiratory rate 25 /min [facility] 01-28-2023 14:54-0400 SaO2% (BldA) [Mass fraction] 97 % [facility] 07-14-2022 18:11-0500 Diastolic blood pressure 64 mm[Hg] [facility] Work Phone: 07-14-2022 18:11-0500 Heart rate 73 /min [facility] Work Phone: 07-14-2022 18:11-0500 Respiratory rate 18 /min [facility] Work Phone: 07-14-2022 18:11-0500 SaO2% (BldA) [Mass fraction] 98 % [facility] Work Phone: 07-14-2022 18:11-0500 Systolic blood pressure 174 mm[Hg] [facility] Work Phone: 07-14-2022 11:59-0500 Body height 160.02 cm [facility] Work Phone: 07-14-2022 11:59-0500 Body mass index (BMI) [Ratio] 31.1 kg/m2 [facility] Work Phone: 07-14-2022 11:59-0500 Body temperature 97.2 [degF] [facility] Work Phone: 07-14-2022 11:59-0500 Body weight 79.83 kg [facility] Work Phone: 05-07-2022 13:26-0400 Body height 158.1 cm Lashonda Javedenter UNDERGROUND CONDUIT INSTALLER.OVERHEAD WORKER Work Phone: [facility] 05-07-2022 13:26-0400 Body temperature 97.2 [degF] 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 UNDERGROUND CONDUIT INSTALLER.OVERHEAD WORKER Work Phone: [facility] 05-07-2022 13:26-0400 Body weight 73.71 kg [place] Iraheta UNDERGROUND CONDUIT INSTALLER.OVERHEAD WORKER Work Phone: [facility] 05-07-2022 13:26-0400 Diastolic blood pressure 68 mm[Hg] [place] Iraheta UNDERGROUND CONDUIT INSTALLER.OVERHEAD WORKER Work Phone: [facility] 05-07-2022 13:26-0400 Heart rate 66 /min [place] Iraheta UNDERGROUND CONDUIT INSTALLER.OVERHEAD WORKER Work Phone: [facility] 05-07-2022 13:26-0400 Systolic blood pressure 160 mm[Hg] 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 UNDERGROUND CONDUIT INSTALLER.OVERHEAD WORKER Work Phone: [facility] 02-26-2022 09:43-0400 Body height 160.[address] Ramone Smiley Work Phone: [facility] Work Phone: 02-26-2022 09:43-0400 Body mass index (BMI) [Ratio] 28.1 kg/m2 Dr. Ramone Smiley Work Phone: [facility] Work Phone: 02-26-2022 09:43-0400 Body temperature 97.9 [degF] Dr. Ramone Smiley Work Phone: [facility] Work Phone: 02-26-2022 09:43-0400 Body weight 72.[address] Ramone Smiley Work Phone: [facility] Work Phone: 02-26-2022 09:43-0400 Diastolic blood pressure 80 mm[Hg] Dr. Ramone Smiley Work Phone: [facility] Work Phone: 02-26-2022 09:43-0400 Heart rate 70 /min Dr. Ramone Smiley Work Phone: [facility] Work Phone: 02-26-2022 09:43-0400 Respiratory rate 14 /min Dr. Ramone Smiley Work Phone: [facility] Work Phone: 02-26-2022 09:43-0400 SaO2% (BldA) [Mass fraction] 98 % Dr. Ramone Smiley Work Phone: [facility] Work Phone: 02-26-2022 09:43-0400 Systolic blood pressure 134 mm[Hg] Dr. Ramone Smiley Work Phone: [facility] Work Phone: 12-17-2021 13:23-0400 Diastolic blood pressure 60 mm[Hg] Dr. Ramone Smiley Work Phone: [facility] Work Phone: 12-17-2021 13:23-0400 Systolic blood pressure 154 mm[Hg] Dr. Ramone Smiley Work Phone: [facility] Work Phone: 12-10-2021 10:34-0400 Diastolic blood pressure 70 mm[Hg] Dr. Ramone Smiley Work Phone: [facility] Work Phone: 12-10-2021 10:34-0400 Systolic blood pressure 124 mm[Hg] Dr. Ramone Smiley Work Phone: [facility] Work Phone: 12-06-2021 15:22-0400 Body mass index (BMI) [Ratio] 30.2 kg/m2 Dr. Ramone Smiley Work Phone: [facility] Work Phone: 12-06-2021 15:22-0400 Body weight 77.[address] Ramone Smiley Work Phone: [facility] Work Phone: 12-06-2021 15:22-0400 Diastolic blood pressure 84 mm[Hg] Dr. Ramone Smiley Work Phone: [facility] Work Phone: 12-06-2021 15:22-0400 Systolic blood pressure 122 mm[Hg] Dr. Ramone Smiley Work Phone: [facility] Work Phone: 12-06-2021 15:22-0400 Body height 160.[address] Ramone Smiley Work Phone: [facility] Work Phone: 12-06-2021 15:22-0400 Body mass index (BMI) [Ratio] 30.2 kg/m2 Dr. Ramone Smiley Work Phone: [facility] Work Phone: 12-06-2021 15:22-0400 Body weight 77.[address] Ramone Smiley Work Phone: [facility] Work Phone: 12-06-2021 15:22-0400 Diastolic blood pressure 84 mm[Hg] Dr. Ramone Smiley Work Phone: [facility] Work Phone: 12-06-2021 15:22-0400 Systolic blood pressure 122 mm[Hg] Dr. Ramone Smiley Work Phone: [facility] Work Phone: 12-04-2021 11:22-0400 Diastolic blood pressure 70 mm[Hg] Dr. Ramone Smiley Work Phone: [facility] Work Phone: 12-04-2021 11:22-0400 Systolic blood pressure 124 mm[Hg] Dr. Ramone Smiley Work Phone: [facility] Work Phone: 12-04-2021 11:22-0400 Diastolic blood pressure 70 mm[Hg] Dr. Ramone Smiley Work Phone: [facility] Work Phone: 12-04-2021 11:22-0400 Systolic blood pressure 124 mm[Hg] Dr. Ramone Smiley Work Phone: [facility] Work Phone: 12-02-2021 14:03-0400 Diastolic blood pressure 60 mm[Hg] Dr. Ramone Smiley Work Phone: [facility] Work Phone: 12-02-2021 14:03-0400 Systolic blood pressure 138 mm[Hg] Dr. Ramone Smiley Work Phone: [facility] Work Phone: 12-02-2021 14:03-0400 Diastolic blood pressure 60 mm[Hg] Dr. Ramone Smiley Work Phone: [facility] Work Phone: 12-02-2021 14:03-0400 Systolic blood pressure 138 mm[Hg] Dr. Ramone Smiley Work Phone: [facility] Work Phone: 01-13-2017 14:21-0400 BMI (Body Mass Index) 30.93 kg/m2 [facility] Work Phone: 01-13-2017 14:21-0400 Body Temperature 98.2 [degF] [facility] Work Phone: 01-13-2017 14:21-0400 Body weight 79.2 kg [facility] Work Phone: 01-13-2017 14:21-0400 BP Diastolic 76 mm[Hg] Zuleika [facility] Work Phone: 01-13-2017 14:21-0400 BP Systolic 128 mm[Hg] [facility] Work Phone: 01-13-2017 [id number] Height 160.02 cm Zuleika [facility] Work Phone: 01-13-2017 14:21-0400 Pulse (Heart Rate) 70 /min [facility]ika [facility] Work Phone: 01-13-2017 14:21-0400 [...] 11:19-0500 Heart rate 109 /min Zuleika [facility] Work Phone: Encounters Encounter Date Encounter Type Care Provider Facility Start: 01-31-2025 End: 01-31-2025 ambulatory Ramone [place] Facility:[facility] Start: 01-26-2025 End: 01-26-2025 Dr. Ramone mSiley MD Work Phone: -Emergency Department Work Phone: Start: 01-26-2025 End: 01-26-2025 Emergency department patient visit Dr. Ramone Smiley MD Work Phone: [facility] Work Phone: Start: 01-24-2025 Dr. Melba Hartmann MD - [facility] Work Phone: Start: 01-23-2025 Dr. Becca Silverman MD [facility] Start: 01-23-2025 Dr. Melba Hartmann MD - [facility] Work Phone: Start: 01-22-2025 Dr. Melba Hartmann MD - [facility] Work Phone: Start: 01-21-2025 Dr. Melba Hartmann MD - [facility] Work Phone: Start: 01-20-2025 ambulatory Marcelina Soto Fa cility:[facility] Start: 01-20-2025 Dr. Marcelina Soto MD -[facility] Start: 01-20-2025 ambulatory Sandeep Babb ty:[facility] Start: 01-20-2025 End: 01-24-2025 Evaluation and management of inpatient Dr. Ramone Smiley MD Work Phone: [facility] Work Phone: Start: 01-20-2025 End: 01-24-2025 Dr. Melba Hartmann MD -Progressive Care Unit Work Phone: Start: 01-19-2025 End: 01-19-[address] Ramone Smiley MD Work Phone: [facility] Work Phone: Start: 01-19-2025 End: 01-19-2025 Dr. Ramone Smiley MD -[facility] Start: 01-19-2025 End: 01-19-2025 ambulatory Ramone Smiley Facility:[facility] Start: 01-15-2025 End: 01-15-2025 Dr. Jeevan [...] Work Phone: Start: 11-21-2024 ambulatory Ramone Smiley Facility:[facility] Start: 11-21-[address] Ramone Smiley MD -Physical Therapy Work Phone: Start: 11-21-2024 Dr. Ramone Smiley MD -Phys ical Therapy Work Phone: Start: 09-27-2024 End: 09-27-[address] Ramone Smiley MD -Laboratory, [facility] Start: 09-27-2024 End: 09-27-2024 Dr. Ramone Smiley MD -Laboratory [facility] Start: 09-27-2024 End: 09-27-2024 ambulatory Ramone Smiley Facility:[facility] Start: 07-19-2024 End: 07-19-2024 ambulatory Asha Anguiano Facility:[facility] Start: 06-19-2024 End: 06-20-2024 Emergency department patient visit Billy Kothari Facility:[facility] Start: 05-30-2024 End: 05-30-2024 Emergency department patient visit Kwaku Marcial Facility:[facility] Start: 05-18-2024 End: 05-18-2024 ambulatory Jason BHATTI Facility:[facility] Start: 04-18-2024 End: 04-18-2024 ambulatory Ramone Smiley Facility:[facility] Start: 03-25-2024 End: 03-25-2024 ambulatory Ramone Smiley Facility:[facility] Start: 03-01-2024 End: 03-01-2024 ambulatory Ramoneramila Smiley Facility:[facility] Start: 02-23-2024 End: 02-23-2024 ambulatory Ramone Smiley Facility:[facility] Start: 12-30-2023 Non-patient / Non-visit Dr. Ramone Smiley Work Phone: [facility] Work Phone: Start: 12-29-2023 Non-patient / Non-visit Dr. Ramone Smiley Work Phone: [facility] Work Phone: Start: 12-28-2023 Non-patient / Non-visit Dr. Ramone Smiley Work Phone: [facility] Work Phone: Start: 12-27-2023 End: 12-30-2023 Evaluation and management of inpatient [facility]-Medical Surgical 3 Work Phone: Start: 10-26-2023 End: 10-26-[address] Ramone Smiley Work Phone: [facility] Work Phone: Start: 10-26-2023 End: 10-26-[address] Ramone Smiley Work Phone: [facility] Start: 08-17-2023 Non-patient / Non-visit Dr. Ramone Smiley Work Phone: [facility] Work Phone: Start: 08-16-2023 Non-patient / Non-visit Dr. Ramone Smiley Work Phone: [facility] Work Phone: Start: 08-15-2023 Non-patient / Non-visit Dr. Ramone Smiley Work Phone: [facility] Work Phone: Start: 08-14-2023 Non-patient / Non-visit Dr. Ramone Smiley Work Phone: [facility] Work Phone: Start: 08-13-2023 End: 08-17-2023 Evaluation and management of inpatient Dr. Ramone Smiley Work Phone: [facility]-Progressive Care Unit Work Phone: Start: 08-07-2023 End: 08-07-2023 Emergency department patient visit Dr. Ramone Smiley Work Phone: [facility]-Emergency Department Work Phone: Start: 07-18-2023 End: 07-19-2023 Emergency department patient visit Dr. Ramone Smiley Work Phone: [facility]-Emergency Department Work Phone: Start: 07-15-2023 End: 07-15-[address] Ramone Smiley Work Phone: [facility] Work Phone: Start: 06-01-2023 End: 06-01-[address] [facility] Work Phone: Start: 05-27-2023 End: 05-27-[address] Ramone Smiley Work Phone: [facility]-Laboratory, [place] Work Phone: Start: 05-15-2023 End: 05-15-[address] Ramone Smiley Work Phone: [facility]-Radiology, [place] Work Phone: Start: 03-24-2023 End: 03-24-2023 ambulatory [facility] Work Phone: Start: 03-24-2023 End: 03-24-2023 Patient encounter procedure [facility] Work Phone: Start: 02-05-2023 End: 02-05-2023 ambulatory [facility] Work Phone: Start: 02-05-2023 End: 02-05-2023 Patient encounter procedure [facility]-Ultrasound, [facility] Start: 01-28-2023 End: 01-28-2023 Emergency department patient visit [facility]-Emergency Department Start: 01-28-2023 End: 01-28-2023 ambulatory [facility] Work Phone: Start: 01-28-2023 End: 01-28-2023 Patient encounter procedure [facility] Start: 12-09-2022 End: 12-09-2022 ambulatory [facility] Work Phone: Start: 12-09-2022 End: 12-09-2022 Patient encounter procedure [facility] Start: 08-13-2022 End: 08-13-2022 ambulatory [facility] Work Phone: Start: 08-13-2022 End: 08-13-2022 Patient encounter procedure [facility]-Outpatient Breast Imaging Start: 07-14-2022 End: 07-14-2022 Emergency department patient visit [facility]-Emergency Department Start: 05-07-2022 End: 05-07-2022 ambulatory 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 APRN.OVERHEAD WORKER Work Phone: Hematology/Oncology Comment on above: Iron deficiency anem ia due to chronic blood loss (Primary Dx) Start: 05-07-2022 End: 05-07-2022 Patient encounter procedure 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 APRN.OVERHEAD WORKER Work Phone: [facility] Start: 02-27-2022 End: 02-27-[address] Ramone Smiley Work Phone: [facility]-Ultrasound, [facility] Start: 02-26-2022 End: 02-26-[address] Ramone Smiley Work Phone: [facility] Start: 02-10-2022 Telephone encounter Joseph sanders DO Work Phone: Hematology/Oncology Comment on above: Results (CBC and iro n levels) Start: 01-31-2022 Orders Only Joseph Lim Work Phone: Hematology/Oncology Comment on above: Iron deficiency anem ia due to chronic blood loss (Primary Dx) Start: 12-17-2021 End: 12-17-[address] Ramone Smiley Work Phone: [facility] Start: 12-10-2021 End: 12-10-[address] Ramone Smiley Work Phone: [facility] Start: 12-06-2021 End: 12-06-[address] Ramone Smiley Work Phone: [facility] Start: 12-04-2021 End: 12-04-[address] Ramone Smiley Work Phone: [facility] Start: 12-02-2021 End: 12-02-[address] Ramone Smiley Work Phone: [facility]-Laboratory, Specimen Start: 12-02-2021 End: 12-02-[address] Ramone Smiley Work Phone: [facility] Start: 09-29-2021 Telephone encounter Joseph sanders DO Work Phone: Hematology/Oncology Comment on above: Results; Follow Up Start: 09-13-2021 End: 09-13-[address] Ramone Smiley Work Phone: [facility]-Nuclear Medicine, [facility] Start: 08-21-[address] Ramone Smiley Work Phone: [facility]-Outpatient Breast Imaging Start: 08-12-2021 End: 08-12-[address] 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 Ramone Smiley Work Phone: Investigation of transfusion reaction Dr. Ramone Smiley Work Phone: Microbial culture, routine D niels Smiley Work Phone: Urine culture Plan of Treatment Date Care Activity Detail Author Start: 01-26-2025 [facility] Start: 01-24-2025 Referral to service [facility] Start: 01-24-2025 Patient discharge [facility] Start: 01-21-2025 [facility] Start: 01-21-2025 Referral to residential specialist [facility] Start: 01-20-2025 Oxygen therapy [facility] Start: 01-20-2025 Blood culture [facility] Start: 01-20-2025 Notification of physician [facility] Start: 01-20-2025 [facility] Start: 01-20-2025 End: 01-20-2025 [facility] Start: 01-20-2025 Application of intermittent pneumatic compression device [facility] Start: 01-20-2025 Following clinical pathway protocol [facility] Start: 01-20-2025 Cardiac monitoring [facility] Start: 01-20-2025 Catheterization of vein [facility] Start: 01-20-2025 Notification of physician [facility] Start: 01-20-2025 Vital signs measurements [facility] Start: 01-20-2025 Admission procedure [facility] Start: 01-20-2025 End: 01-20-2025 [facility] Start: 01-20-2025 Care regimes management [facility] Start: 01-20-2025 Inhalation therapy procedure [facility] Start: 01-20-2025 Patient referral to dietitian [facility] Start: 01-15-2025 [facility] Start: 01-15-2025 [facility] Start: 01-07-2025 [facility] Start: 12-30-2023 Patient discharge [facility] Start: 12-30-2023 Inhalation therapy procedure [facility] Start: 12-28-2023 Application of intermittent pneumatic compression device [facility] Start: 12-28-2023 Provision of overbed trapeze [facility] Start: 12-28-2023 Recommendation to continue with treatment [facility] Start: 12-28-2023 Ambulation therapy management [facility] Start: 12-28-2023 Application of device [facility] Start: 12-28-2023 Assessment of risk o f venous thromboembolism [facility] Start: 12-28-2023 Catheterization of vein [facility] Start: 12-28-2023 Exercises [facility] Start: 12-28-2023 Following clinical pathway protocol [facility] Start: 12-28-2023 Introduction of urin david catheter [facility] Start: 12-28-2023 Measuring intake and output [facility] Start: 12-28-2023 Neurovascular assessment [facility] Start: 12-28-2023 Patient education [facility] Start: 12-28-2023 Procedure discontinued [facility] Start: 12-28-2023 Provision of activit y privileges [facility] Start: 12-28-2023 Referral to occupati onal therapist [facility] Start: 12-28-2023 Referral to service [facility] Start: 12-28-2023 Vital signs measurements [facility] Start: 12-28-2023 Wound care [facility] Start: 12-28-2023 [facility] Start: 12-28-2023 Blood chemistry [facility] Start: 12-28-2023 Complete blood count [facility] Start: 12-28-2023 Following clinical pathway protocol [facility] Start: 12-28-2023 Assessment of risk o f venous thromboembolism [facility] Start: 12-28-2023 Care regimes management [facility] Start: 12-28-2023 Consultation [facility] Start: 12-28-2023 Incentive spirometry [facility] Start: 12-28-2023 Insertion of cathete r into peripheral vein [facility] Start: 12-28-2023 Notification of physician [facility] Start: 12-28-2023 Oxygen therapy [facility] Start: 12-28-2023 Providing care accor ding to standard [facility] Start: 12-28-2023 Provision of activit y privileges [facility] Start: 12-28-2023 Referral to occupati onal therapist [facility] Start: 12-28-2023 Referral to service [facility] Start: 12-28-2023 [facility] Start: 12-27-2023 Verification routine [facility] Start: 12-27-2023 Admission procedure [facility] Start: 08-17-2023 Referral to service [facility] Start: 08-17-2023 Patient discharge [facility] Start: 08-16-2023 [facility] Start: 08-13-2023 Following clinical pathway protocol [facility] Start: 08-13-2023 Assessment of risk o f venous thromboembolism [facility] Start: 08-13-2023 Care regimes management [facility] Start: 08-13-2023 Insertion of cathete r into peripheral vein [facility] Start: 08-13-2023 Measuring intake and output [facility] Start: 08-13-2023 Notification of physician [facility] Start: 08-13-2023 Providing care accor ding to [facility] Start: 08-13-2023 Provision of activit y privileges [facility] Start: 08-13-2023 Referral to occupati onal therapist [facility] Start: 08-13-2023 Referral to service [facility] Start: 08-13-2023 [facility] Start: 08-13-2023 Admission procedure [facility] Start: 08-13-2023 Verification routine [facility] Start: 08-13-2023 Bacteria identified in Blood by Culture Blood Culture [facility] Start: 08-13-2023 Bacteria identified in Urine by Culture Urine Culture [facility] Start: 08-13-2023 Hospital admission, emergency, from emergency room, medical nature [facility] Start: 08-13-2023 [facility] Start: 08-13-2023 End: 08-13-2023 Blood culture [facility] Start: 08-13-2023 Inhalation therapy procedure [facility] Start: 08-13-2023 Patient referral to dietitian [facility] Start: 08-07-2023 [facility] Start: 07-19-2023 End: 07-19-2023 [facility] Start: 07-18-2023 Measurement of occul t blood in stool specimen using immunoassay [facility] Start: 07-18-2023 Bacteria identified in Urine by Culture Urine Culture [facility] Start: 05-07-2022 BP CONTROLLED (<130/80) BP CONTROLLE D (<130/80) [facility] Start: 05-01-2022 Influenza vaccination C [facility] Start: 03-28-2022 COVID-19 VACCINE (4 - Booster for Moderna series) COVID-19 VACCINE (4 - Booster for Moderna series) [facility] Start: 09-29-2021 End: 09-29-2022 MONOCLONAL PROTEIN, SERUM (BLOOD) MONOCLONAL PROTEIN, SERUM (BLOOD) Lab Routine Anemia, unspecified type Expected: 09/29/2021, Expires: 09/29/2022 [facility] Work Phone: Comment on above: Expected: 09/29/2021 , Expires: 09/29/2022 Start: 09-29-2021 End: 09-29-2022 PROTEIN ELECTROPHORESIS SERUM W/INTERP PROTEIN ELECTROPHORESIS SERUM W/INTERP Lab Routine Anemia, unspecified type Expected: 09/29/2021, Expires: 09/29/2022 [facility] Work Phone: Comment on above: Expected: 09/29/2021 , Expires: 09/29/2022 Start: 08-31-2021 ADVANCE DIRECTIVE DISCUSSION ADVANCE DIRECTIVE DISCUSSION [facility] Start: 05-16-2021 COVID-19 VACCINE (3 - Booster for Moderna series) COVID-19 VACCINE (3 - Booster for Moderna series) [facility] Start: 05-04-2018 Urine microalbumin profile DTAP,TDAP,TD (2 - Td or Tdap) [facility] Start: 08-16-2016 3 comp foot exam completed DIABETIC FOOT EXAM [facility] Start: 10-09-2015 End: 04-02-2016 Follow Up Appt 6 months Follow Up Appt 6 months [facility] Work Phone: Start: 10-09-2015 End: 04-02-2016 MMM MMM [facility] Work Phone: Start: 08-29-2015 End: 08-29-2015 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 SERVICER HELPER PUMP SERVICER HELPER [facility] Work Phone: Start: 08-29-2015 End: 08-29-2015 Electrocardiogram, complete EKG (In office) [facility] Work Phone: Start: 08-29-2015 End: 08-29-2015 Follow Up Appt 6 weeks Follow Up Appt 6 weeks [facility] Work Phone: Start: 07-01-2014 Hemoglobin A1c/Hemoglobin.total in Blood HBA1C [facility] Start: 06-25-2014 Hepatitis B surface antibody level LDL CHOLESTEROL [facility] Start: 06-17-2014 Hepatitis C antibody , confirmatory test DILATED RETINAL EXAM [facility] Start: 02-12-2013 PNEUMOCOCCAL: 65+ (2 - PCV) PNEUMOCOCCAL: 65+ (2 - PCV) [facility] Start: 02-12-2013 PNEUMOCOCCAL: 65+ (3 - PCV) PNEUMOCOCCAL: 65+ (3 - PCV) [facility] Start: 02-18-2012 SHINGRIX VACCINE (1 of 2) MORENO GRIX VACCINE (1 of 2) [facility] Start: 02-18-2012 SHINGRIX VACCINE (2 of 3) MORENO GRIX VACCINE (2 of 3) [facility] Start: 01-02-1962 ANNUAL PCP TEAM AUTOMATION AND CONTROLS SUPERVISOR ERIS DISEASE VISIT ANNUAL PCP TEAM CHRONIC DISEASE VISIT [facility] Start: 01-02-1962 BP CONTROLLED (<130/80) BP CONTROLLE D (<130/80) [facility] Start: 01-02-1962 HEPATITIS C SCREENING HEPATITIS C [facility] Start: 1956 Adult depression screening assessment DEPRESSION SCREENING [facility] Anion gap measurement [facility] BUN/Creatinine ratio [facility] Calcium [Mass/volume ] in Serum or Plasma [facility] Carbon dioxide, tota l [Moles/volume] in Serum or Plasma [facility] End: 01-31-2023 CBC W Auto Differential panel - Blood CBC + DIFF Lab STAT Iron deficiency anemia due to chronic blood loss Every 3 months for 4 Occurrences starting 01/31/2022 until 01/31/2023 [facility] Work Phone: Comment on above: Every 3 months for 4 Occurrences starting 01/31/2022 until 01/31/2023 End: 09-29-2022 CBC W Auto Differential panel - Blood CBC + DIFF Lab Routine Anemia, unspecified type 1 Occurrences starting 09/29/2021 until 09/29/2022 [facility] Work Phone: Comment on above: 1 Occurrences starti ng 09/29/2021 until 09/29/2022 Chloride [Moles/volu me] in Serum or Plasma [facility] End: 09-29-2022 Comprehensive metabolic 2000 panel - Serum or Plasma COMP METABOLIC PANEL Lab Routine Anemia, unspecified type 1 Occurrences starting 09/29/2021 until 09/29/2022 [facility] Work Phone: Comment on above: 1 Occurrences starti ng 09/29/2021 until 09/29/2022 Creatinine [Moles/vo lume] in Serum or Plasma [facility] Erythrocyte mean corpuscular volume determination [facility] End: 01-31-2023 FERRITIN BLD FERRITIN BLD Lab Routine Iron deficiency anemia due to chronic blood loss Every 3 months for 4 Occurrences starting 01/31/2022 until 01/31/2023 [facility] Work Phone: Comment on above: Every 3 months for 4 Occurrences starting 01/31/2022 until 01/31/2023 Glucose [Mass/volume ] in Serum or Plasma [facility] Hematocrit [Volume Fraction] of Blood [facility] Hemoglobin [Mass/vol ume] in Blood [facility] Hemoglobin A1c/Hemoglobin.total in Blood [facility] End: 01-31-2023 IRON + TIBC IRON + TIBC Lab Routine Iron deficiency anemia due to chronic blood loss Every 3 months for 4 Occurrences starting 01/31/2022 until 01/31/2023 [facility] Work Phone: Comment on above: Every 3 months for 4 Occurrences starting 01/31/2022 until 01/31/2023 Leukocytes [#/volume ] in Blood [facility] Mean corpuscular hemoglobin concentration determination [facility] Mean corpuscular hemoglobin determination [facility] Measurement of renal function [facility] Patient Education [facility] Work Phone: Patient referral [facility] Work Phone: Platelets [#/volume] in Blood [facility] Potassium [Moles/vol ume] in Serum or Plasma [facility] Red blood cell count [facility] Red cell distributio n width determination [facility] Sodium [Moles/volume ] in Serum or Plasma [facility] Troponin T.cardiac [Mass/volume] in Serum or Plasma by High sensitivity method [facility] Urea nitrogen [Mass/volume] in Serum or Plasma [facility] Immunizations Immunization Date Immunization Notes Care Provider Larissa cuadra 07-03-2022 influenza, injectabl e, quadrivalent, preservative free Dr. Ramone Smiley MD Work Phone: [facility] 11-26-2021 Covid (Moderna) Dr. Ramone leon MD Work Phone: [facility] 08-22-2015 pneumococcal conjuga te vaccine, [address] Ramone Smiley MD Work Phone: [facility] 07-12-2012 influenza virus vacc ine, unspecified formulation Joseph Rolle DO Work Phone: [facility] 02-13-2012 pneumococcal polysaccharide vaccine, 23 valent Joseph Rolle DO Work Phone: [facility] 12-24-2011 zoster vaccine, live Joseph Chen chatterjee DO Work Phone: [facility] 06-02-2011 influenza virus vacc ine, unspecified formulation Joseph Rolle DO Work Phone: [facility] 08-09-2010 influenza virus vacc jcarlos, unspecified formulation Joseph Rolle DO Work Phone: [facility] 05-30-2009 influenza virus vacc ine, unspecified formulation Joseph Rolle DO Work Phone: [facility] 09-07-2008 influenza virus vacc ine, unspecified formulation Joseph Rolle DO Work Phone: [facility] Work Phone: 05-04-2008 tetanus toxoid, redu octavio diphtheria toxoid, and acellular pertussis vaccine, adsorbed Joseph Rolle DO Work Phone: [facility] Work Phone: 06-28-2007 influenza virus vacc jcarlos, unspecified formulation Joseph Rolle DO Work Phone: [facility] Work Phone: 08-31-2005 pneumococcal polysaccharide vaccine, 23 valent Joseph Rolle DO Work Phone: [facility] Work Phone: Payers Date Payer Category Payer Self-pay [id number] 2017 Medicare HUMANA MEDICARE HU[employer]NA MEDICARE PPO [id number] 2017-Present [phone] [place] [address] PPO [id number] 2017 Medicare HUMANA MEDICARE HUMANA MEDICARE PPO [id number] 2017-Present [phone] [place], [place] [id number] PPO [id number] 2016 Medicare [id number] Private Health Insurance Unknown [id number] 2..[id number]. 2.462 Unknown [id number] 2.840.1.238051.3.579. 2.462 Unknown [id number] 2.840.1.840088.3.579. 2.462 Unknown [id number] 2.840.1.828585.3.579. 2.462 Unknown [id number] 2.840.1.934549.3.579. 2.462 Unknown [id number] 2.840.1.407863.3.579. 2.462 Unknown [id number] 2.840.1.260517.3.579. 2.462 Unknown [id number] 2.840.1.994019.3.579. 2.462 Unknown [id number] 2.840.1.917887.3.579. 2.462 Unknown [id number] 2.840.1.582324.3.579. 2.462 Unknown [id number] 2.840.1.076467.3.579. 2.462 Unknown [id number] 2.840.1.846566.3.579. 2.462 Unknown [id number] 2.840.1.626310.3.579. 2.462 Unknown [id number] 2.840.1.522790.3.579. 2.462 Unknown [id number] .840.1.518699.3.579. 2.462 Unknown [id number] 2.840.1.601444.3.579. 2.462 Unknown [id number] 2.840.1.858148.3.579. 2.462 Unknown [id number] 2.840.1.545649.3.579. 2.462 Unknown [id number] 2.840.1.709348.3.579. 2.462 Unknown [id number] 2.840.1.254593.3.579. 2.462 Unknown [id number] 2.840.1.297403.3.579. 2.462 Unknown [id number] 2.840.1.365177.3.579. 2.462 Unknown [id number] 2.0.1.004317.3.579. 2.462 Social History Date Type Detail Facility Start: 12-06-2021 End: 08-13-2023 Tobacco smoking status [facility] Unknown if ever smoked [facility] Start: 12-02-2019 None [facility] Start: 12-02-2019 Spouse/ Signif icant Other [facility] Start: 07-06-2020 Non-smoker [facility] Start: 1945 Sex Assigned At Female [facility] Start: 02-03-2012 End: 01-26-2025 Tobacco smoking status NMIS Ex-smoker [facility] End: 01-30-2012 History of tobacco use Current smoker [facility] End: 01-30-2012 History of tobacco use Cigarette Smoker [facility] Start: 02-03-2012 End: 03-22-2012 Cigarettes smoked current (pack per day) - Reported 0.5 [facility] Start: 02-03-2012 End: 03-22-2012 Tobacco use and exposure Smokeless tobacco non-user [facility] Start: 05-07-2021 End: 05-07-2022 Alcohol intake Current non-drinker of alcohol (finding) [facility] Start: 1945 Sex Assigned At Not on file [facility] Start: 10-05-2021 End: 11-04-2021 Exposure to SARS-CoV-2 (event) Not sure [facility] NEGATED: Highlighted row [facility] Medical Equipment Procedure Code Equipment Code Equipment Origin al Text Equipment Identifier Dates 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 Start: 12-28-2023 Primary uncemented hemiarthroplasty of hip unitrax neck adjustment sleeve FDA Start: 12-28-2023 Primary uncemented hemiarthroplasty of hip ([id number]) [id number] FDA Start: 12-28-2023 Primary uncemented hemiarthroplasty of [...] Assessment Result Facility 01-24-2025 Functional status Ambulates [facility] Work Phone: 01-23-2025 Functional status Fair [facility] Work Phone: 12-30-2023 Functional status Bedrest [facility] Work Phone: 08-17-2023 Functional status Ambulates [facility] Work Phone: Mental Status Date Assessment Result Facility 01-24-2025 Cognitive function Voice/Name [facility] Work Phone: 12-30-2023 Cognitive function Voice/Name [facility] Work Phone: 08-17-2023 Cognitive function Voice/Name [facility] Work Phone: 08-13-2023 Cognitive function Level Of Cons ciousness Awake;Alert;Appropriate;Follow s Commands [facility] Work Phone: 01-28-2023 Cognitive function Level Of Cons ciousness Awake;Alert;Appropriate;Follow s Commands [facility] Work Phone: Clinical Notes 03-14-2021 to 01-26-2025 Note Date & Type Note Facility 01-26-2025 Radiology Diagnostic study note [facility] 01-24-2025 Note [facility] 01-23-2025 Progress note Note Date/Time January 23, 2025 3:40p m [facility] Medical Records Department [address] [place] [address] Progress Note - Cardiology 01/23/25 1528 MR#: [id number] Acct: [id number] Name: OLGA DONALDSON Rep #:[id number] : 1945 80 From: Becca Silverman MD PCP: Dr. Ramone Smiley MD Status:ADM IN Location: [place] [address] Subjective Subjective Seen and evaluated at bedside [...] (Auto) 90.8 H, Lymph % (Auto) 6.2L, [place] % (Auto) 2.7, Eos % (Auto) 0.0, [...] (Auto)90.8 H, Lymph % (Auto) 6.2 L, [place] % (Auto) 2.7, Eos % (Auto) 0.0, [...] up an appointment to be seen by residential specialist as an outpatient and discussed further plan possible Lexiscan sestamibi and based on results of Lexiscan sestamibi to consider further evaluation. To minimize risk of contrast-induced nephropathy. Becca Silverman MD,[facility] 01/23/25 1540 <Electronically signed by Becca Silverman MD> Cosigner Signature (if applicable): CC: ~ Signed [facility] Work Phone: 1(921) 802-860505-26-2025 Progress [facility] Note Date/Time January 23, 2025 2:43p m [facility] Medical Records Department [address] [place] [address] Progress Note 01/23/25 1037 MR#: [id number] Acct: [id number] Name: OLGA DONALDSON Rep #:[id number] : 1945 80 From: Melba Hartmann MD PCP: Dr. Ramone Smiley MD Status:ADM IN Location: [place] [address] Subjective Subjective Patient seen and examined. She [...] (Auto) 90.8 H, Lymph % (Auto) 6.2L, [place] % (Auto) 2.7, Eos % (Auto) 0.0, [...] prophylaxis: Heparin Charges/Coding Visit Charges Inpatient E&M: 33942 Subs Hosp L2 01/23/25 1443 <Electronically signed by Melba Hartmann MD> Melba Hartmann MD Cosigner Signature (if applicable): CC: ~ Signed [facility] Work Phone: 1(192) 534-739805-25-2025 Progress note Author [facility] Note Date/Time January 22, 2025 2:00p m [facility] Medical Records Department [address] [place] [address] Progress Note 01/22/25 0949 MR#: [id number] Acct: [id number] Name: OLGA DONALDSON Rep #:[id number] : 1945 80 From: Melba Hartmann MD PCP: Dr. Ramone Smiley MD Status:ADM IN Location: [place] [address]- 1 Subjective Subjective Patient seen and examined [...] 91.4 H, Lymph % (Auto) 5.7 L, [place] % (Auto) 2.4, Eos % (Auto) 0.0, [...] to PCU Charges/Coding Visit Charges Inpatient E&M: 84591 Subs Hosp L2 01/22/25 1242 <Electronically signed by Melba Hartmann MD> Melba Hartmann MD Cosigner Signature (if applicable): CC: ~ Signed ADDENDUM by Dr. Melba Hartmann MD on 01/22/25 at 1400 Addendum 1:30pm Patient's son Sarita Lees Jr called on the phone ([phone]) and updated about his mother's condition. 01/22/25 1400 <Electronically signed by Melba vivas MD> Date _ Melba Hartmann MD Cosigner Signature (if applicable): Date cc: ~* Signed [facility] Work Phone: 1(671) 432-587005-24-2025 Progress note Author [facility] Note Date/Time January 21, 2025 2:07p [facility] Medical Records Department [address] [place] [address] Progress Note 01/21/25 1039 MR#: [id number] Acct: [id number] Name: OLGA DONALDSON Rep #:[id number] : 1945 80 From: Melba Hartmann MD [...] 88.4 H, Lymph % (Auto) 7.7 L, [place] % (Auto) 3.5, Eos % (Auto) 0.0, [...] H, Calcium 9.8, [place] [address] H 01/21/25 08:06: POC Glucose 202 H [...] noted. Cardiomegaly. No pericardial effusion. Reading Location: [id number] Echocardiogram 01/20/25 04:12 Interpretation Summary Mildly dilated left ventricle. The estimated ejection fraction is 35-40 %. There is evidence of diastolic dysfunction. There is moderate global hypokinesis of the left ventricle. Trivial mitral valve insufficiency. Mild aortic stenosis. Trivial aortic valve insufficiency. Ordering Physician: Sandeep Carlton Referring Physician: Ramone Smiley Performed By: Margot Cleary, DALIA, RVT Chest X-Ray 01/21/25 05:55 IMPRESSION: New appearing [id number] ill-defined perihilar opacity at the left upper lobe may represent developing infiltrate or less likely an asymmetric edema pattern. Bilateral medial retrocardiac lower lobe streaky opacities not significantly changed. No pleural effusions identified. Reading Location: [facility] Physical Exam Const alert, oriented x3, no [...] prophylaxis: Heparin Charges/Coding Visit Charges Inpatient E&M: 32555 Subs Hosp L2 01/21/25 0436 <Electronically signed by Melba Hartmann MD> Melba Hartmann MD Cosign Signature (if applicable): CC: ~ Signed [facility] Work Phone: 1(335) 959-279505-24-2025 Radiology Diagnostic study [facility]05-23-2025 Progress note Author Lucio Borden [facility] Note Date/Time January 20, 2025 4:58p m [facility] Medical Records Department [address] [facility] [address] Progress Note - Hospitalist 01/20/25 1657 MR#: [id number] Acct: [id number] Name: OLGA DONALDSON Rep #:[id number] : 1945 80 From: Lucio Borden DO PCP: Dr. Ramone Smiley MD Status:ADM IN Location: [place] [address] Hospitalist Note Patient continues to have respiratory [...] Cosigner Signature (if applicable): CC: ~ Signed [facility] Work Phone: 1(706) 710-124905-23-2025 Progress note Author [facility]io [facility] Note Date/Time January 20, 2025 11:20 am [facility] Medical Records Department [address] [place] [address] Progress Note - Hospitalist 01/20/25 1119 MR#: [id number] Acct: [id number] Name: OLGA DONALDSON Rep #:[id number] : 1945 80 From: Lucio Borden DO PCP: Dr. Ramone Smiley MD Status:ADM IN Location: [place] [address] Hospitalist Note Patient was seen and examined today, made the decision to change the patient to Airvo, patient was admitted for suspected right lower lobe pneumonia and exacerbation of COPD, she remained on aerosol treatments, IV Solu-Medrol, and IVlevofloxacin. 01/20/25 1120 <Electronically signed by Lucio Borden DO> Cosigner Signature (if applicable): CC: ~ Signed [facility] Work Phone: 1(779) 604-330405-23-2025 History and physical note Author Sandeep Marie [facility] Note Date/Time January 20, 2025 6:06a m [facility] Medical Records Department [address] [place] [address] H&P Exam - Hospitalist 01/20/25 0241 MR#: [id number] Acct: [id number] Name: OLGA DONALDSON Rep #:[id number] : 1945 80 From: Sandeep Dukes DO PCP: Dr. Ramone Smiley MD Status:ADM IN Location: [facility] [id number] [facility] General Date of Admission: 01/20/25 Date of [...] stenosis of lumbar region who presents to [facility] ER complaining of shortness of breath. [...] is expected to extend beyond 2 midnights. [facility] Medical History Fracture of hip, left, [...] mg tablet 25 mg PO BID BLOOD IN ESSURE 08/16/18 01/15/25 History pantoprazole 40 mg [...] Neut % (Auto) 58.4, Lymph % (Auto) 32.0,Ringgold % (Auto) 7.7, Eos % (Auto) 0.8, [...] Clarity Clear, Urine pH 6.0, Ur Specific Tatamy 1.010, Urine Protein 100 H, Urine Glucose [...] noted. Cardiomegaly. No pericardial effusion. Reading Location: [facility] Assessment & Plan Assessment/Plan (1) Pneumonia: QUALIFIERS: [...] twice daily. Give acetaminophen as needed for [id number] (level 1-5/10) pain or fever. Give morphine [...] responsive hypotension Charges/Coding Visit Charges Inpatient E&M: 30771 Init Hosp L3 01/20/25 0606 <Electronically signed by Sandeep Carlton DO> Cosigner Signature (if applicable): CC: Dr. Sandeep Carlton DO; Dr. Ramone Smiley MD~ Signed [facility] Work Phone: 1(878) 722-424205-23-2025 Evaluation note* Diagnosis Onset Date Resolution Status [...] 2024 3:32am Hypertension chronic January 20 3:32am [facility] Work Phone: 1(659) 394-253705-23-2025 Discharge summary Author Jeevan Yoder [facility] Note Date/Time January 20, 2025 2:43a [facility] Medical Records Department [address] [place] [address] Emergency Department Summary 01/20/25 MR#: [id number] Acct: [id number] Name: OLGA DONALDSON Rep #:[id number] : 1945 80 From: Jeevan Yoder DO [...] has had progressive worsening shortness of breath. [facility] Medical History Fracture of hip, left, [...] mg tablet 25 mg PO BID BLOOD IN ESSURE 08/16/18 01/15/25 History pantoprazole 40 mg [...] % (Auto) 58.4 Lymph % (Auto) 32.0 Ringgold % (Auto) 7.7 Eos % (Auto) 0.8 [...] Clarity Clear Urine pH 6.0 Ur Specific Tatamy 1.010 Urine Protein 100 H Urine Glucose [...] noted. Cardiomegaly. No pericardial effusion. Reading Location: [id number] Discharge Plan Triage Chief Complaint: Shortness of [...] MD [Primary Care Provider] - Print Language: Guamanian What to do if you have Problems For any increased pain, shortness of breath, bleeding, nausea or vomiting, chestpain, or any unexpected problems, contact your Primary Care Provider. Call [facility] ([phone]) or report to the closest Emergency Room. Call 911 if necessary. 01/20/25 0236 <Electronically signed by Jeevan Yoder DO> Cosigner Signature (if applicable): CC: Dr. Ramone Smiley MD ~ Signed [facility] Work Phone: 1(751) 161-353805-23-2025 Radiology Diagnostic study [facility]05-18-2025 Discharge summary [facility] Medical Records Department [address] [place] [address] Emergency Department Summary 01/15/25 MR#: [id number] Acct: [id number] Name: OLGA DONALDSON Rep #:[id number] : 1945 80 From: Jeevan Yoder DO [...] of the antibiotic that was placed on. [facility] Medical History Fracture of hip, left, [...] mg tablet 25 mg PO BID BLOOD IN ESSURE 08/16/18 01/15/25 History pantoprazole 40 mg [...] follow commands and that she was at [facility] the year is 2024 Skin: Warm, dry, [...] 72.7 H Lymph % (Auto) 18.1 L Ringgold % (Auto) 6.9 Eos % (Auto) 1.6 [...] IMPRESSION: Cardiomegaly with mild congestion. Reading Location: [facility] BEDS AT [facility] Discharge Plan Triage Chief Complaint: Shortness of [...] with worsening symptoms or concerns. Print Language: Guamanian Disposition Disposition: Home, Self Care What to do if you have Problems For any increased pain, shortness of breath, bleeding, nausea or vomiting, chestpain, or any unexpected problems, contact your Primary Care Provider. Call [facility] ([phone]) or report tothe closest Emergency Room. Call 911 if necessary. 01/15/25 184 Cosigner Signature (if applicable): CC: Dr. Ramone Smiley MD ~ Signed [facility]05-18-2025 Radiology Diagnostic study note [facility] Imaging Services [address] [place] [address] Chest PA and Lateral MR#: [id number] Acct: [id number] Name: OLGA DONALDSON Rep #: [id number] : 1945 F 80 From: Kary Darnell MD PCP: Dr. Ramone Smiley MD Status: REG ER Study:Chest PA and Lateral Date of Exam: 01/15/25 Exam# [id number] Ordering Dr: Yoly Yoder DO EXAM: XR Chest, 2 Views CLINICAL INDICATION: CHEST PAIN TECHNIQUE: Frontal and lateral views of the chest. COMPARISON: No relevant prior studies available. FINDINGS: LUNGS AND PLEURAL SPACES: See below. HEART: Cardiomegaly with mild congestion. MEDIASTINUM: Unremarkable. Normal mediastinal contour. BONES/JOINTS: Unremarkable. No acute fracture. RAD/Chest PA and Lateral IMPRESSION: Cardiomegaly with mild congestion. Reading Location: [id number] CC: Dr. Ramone Smiley MD; Dr. Jeevan Yoder DO ~ Computed Tomography Technologist: Signed [facility]05-18-2025 Discharge summary Author Jeevan Yoder [facility] Note Date/Time January 15, 2025 6:45p m [facility] Medical Records Department [address] [place] [address] Emergency Department Summary 01/15/25 MR#: [id number] Acct: [id number] Name: OLGA DONALDSON Rep #:[id number] : 1945 80 From: Jeevan Yoder DO [...] of the antibiotic that was placed on. [facility] Medical History Fracture of hip, left, [...] mg tablet 25 mg PO BID BLOOD IN ESSURE 08/16/18 01/15/25 History pantoprazole 40 mg [...] follow commands and that she was at [facility] the year is 2024 Skin: Warm, dry, [...] 72.7 H Lymph % (Auto) 18.1 L Ringgold % (Auto) 6.9 Eos % (Auto) 1.6 [...] IMPRESSION: Cardiomegaly with mild congestion. Reading [facility] Triage Chief Complaint: [...] BID (DME) lancets [TRUEplus Lancets] [facility] MISCELLANEOUS Breztri Aerosphere 160-9-4.8 mcg/actuation HFA aerosol inhaler 2 inh inhalation BID Primary Care Provider: Ramone Smiley Referrals: Ramone Smiley MD [Primary Care Provider] - Activity Restrictions/Additional Instructions: Take medications as prescribed. Follow-up your doctor in outpatient setting. Return with worsening symptoms or concerns. Print Language: Guamanian Disposition Disposition: Home, Self Care What to do if you have Problems For any increased pain, shortness of breath, bleeding, nausea or vomiting, chestpain, or any unexpected problems, contact your Primary Care Provider. Call [facility] ([phone]) or report to the closest Emergency Room. Call 911 if necessary. 01/15/251844 <Electronically signed by Jeevan Yoder DO> Cosigner Signature (if applicable): CC: Dr. Ramone Smiley MD ~ Signed [facility] Work Phone: 1(776) 141-241105-10-2025 Discharge summary [facility] Medical Records Department [address] [place] [address] Emergency Department Summary 01/07/25 MR#: [id number] Acct: [id number] Name: OLGA DONALDSON Rep #:[id number] : 1945 80 From: Ethan Casanova PCP: [...] mg tablet 25 mg PO BID BLOOD IN ESSURE 08/16/18 08/12/23 History pantoprazole 40 mg [...] clinician: N/A This note was generated with [employer] software. It may contain incorrectwords, spelling, and [...] % (Auto) 58.0 Lymph % (Auto) 31.8 Ringgold % (Auto) 7.6 Eos % (Auto) 1.9 [...] IMPRESSION: Cardiomegaly without overt failure. Reading Location: [facility]S AT [facility] Discharge Plan Triage Chief Complaint: Shortness of [...] steroids is tomorrow. This was sent to [facility]. Print Language: Guamanian Disposition Disposition: Home, Self Care What to do if you have Problems For any increased pain, shortness of breath, bleeding, nausea or vomiting, chestpain, or any unexpected problems, contact your Primary Care Provider. Call [facility] ([phone]) or report tothe closest Emergency Room. Call 911 if necessary. 01/07/25 1700 Cosigner Signature (if applicable): CC: Dr. Ramone Smiley MD ~ Signed [facility]05-10-2025 Radiology Diagnostic study note [facility] Imaging Services [address] [place] [address] Chest PA and Lateral MR#: [id number] Acct: [id number] Name: OLGA DONALDSON Rep #: [id number] : 1945 F 80 From: Kary Darnell MD PCP: Dr. Ramone Smiley MD Status: PRE ER Study:Chest PA and Lateral Date of Exam: 01/07/25 Exam# [id number] Ordering Dr: Ehtan Darnell DO EXAM: XR Chest, 2 Views CLINICAL INDICATION: COUGH TECHNIQUE: Frontal and lateral views of the chest. COMPARISON: No relevant prior studies available. FINDINGS: LUNGS AND PLEURAL SPACES: Unremarkable. No consolidation. No pneumothorax. HEART: Cardiomegaly without overt failure. MEDIASTINUM: Unremarkable. Normal mediastinal contour. BONES/JOINTS: Unremarkable. No acute fracture. RAD/Chest PA and Lateral IMPRESSION: Cardiomegaly without overt failure. Reading Location: [facility] CC: Dr. Ramone Smiley MD; Dr. Ethan Darnell DO ~ Computed Tomography Technologist: Signed [facility]05-10-2025 Discharge summary Author Ethan Darnell [facility] Note Date/Time January 07, 2025 5:00p m [facility] Medical Records Department [address] [place] [address] Emergency Department Summary 01/07/25 MR#: [id number] Acct: [id number] Name: OLGA DONALDSON Rep #:[id number] : 1945 80 From: Ethan Casanova PCP: [...] mg tablet 25 mg PO BID BLOOD IN ESSURE 08/16/18 08/12/23 History pantoprazole 40 mg [...] DIABETES 08/13/23 08/10/23 History subcutaneous pen injector ([facility]) gabapentin 100 mg capsule 100 mg [...] 01/15/24 Unknown Rx 0.005 % eye drops ([facility]) azithromycin 250 mg tablet 250 mg PO [...] % (Auto) 58.0 Lymph % (Auto) 31.8 Ringgold % (Auto) 7.6 Eos % (Auto) 1.9 [...] IMPRESSION: Cardiomegaly without overt failure. Reading [facility] Dis[facility] Triage Chief Complaint: [...] steroids is tomorrow. This was sent to [facility]. Print Language: Guamanian Disposition Disposition: Home, Self Care What to do if you have Problems For any increased pain, shortness of breath, bleeding, nausea or vomiting, chestpain, or any unexpected problems, contact your Primary Care Provider. Call [facility] ([phone]) or report to the closest Emergency Room. Call 911 if necessary. 01/07/25 1700 <Electronically signed by Ethan Casanova> Cosigner Signature (if applicable): CC: Dr. Ramone Smiley MD ~ Signed [facility] Work Phone: 1(130) 678-314705-01-2024 Progress note Author Sunny Bell [facility] December 30, 2023 12:34pm Note Date/Time December 30, 2023 12:35p [facility] Medical Records Department [address] [place] [address] Progress Note - Hospitalist 12/30/23 1228 MR#: [id number] Acct: [id number] Name: OLGA DONALDSON Rep #:[id number] : 1945 78 From: Sunny Blue PCP: Dr. Ramone Simley MD Status:ADM IN Location: [place] [address]-1 Reason for Visit Reason for Visit: Diagnoses [...] % (Auto) 63.9, Lymph % (Auto) 25.3, Ringgold % (Auto) 8.7, Eos % (Auto) 1.4, [...] Patient is a 78-year-old female who presented [facility] ED on 12/27/2023 with left hip pain after a fall at home. She got up from the couch toself catheter, got her walker turned and then lost balance and fell on her left hip. 1. Acute debility due to left impacted transcervical femoral neck fracture. ? Admit under inpatient status to [facility]. Orthopedics consulted. N.p.o. at midnight. PT/OT/case [...] cousin over the phone who lives in [facility]. Patient is clinically doing well. Currently [...] disposition: TBD Charges/Coding Visit Charges Inpatient E&M: 69803 Subs Hosp L2 12/30/23 1234 <Electronically signed by Sunny Bell MD> Cosigner Signature (if applicable): CC: ~ Signed [facility] Work Phone: 1(612) 399-928304-30-2024 Progress note Author Sunny Bell [facility] December 29, 2023 12:47pm Note Date/Time December 29, 2023 9:3 0am [facility] Medical Records Department [address] [place] [address] Progress Note - Hospitalist 12/29/23 0929 MR#: [id number] Acct: [id number] Name: OLGA DONALDSON Rep #:[id number] : 1945 78 From: Sunny Blue PCP: Dr. Ramone Smiley MD Status:ADM IN Location: MD3 BC751-5 Reason for Visit Reason for Visit: Diagnoses [...] (Auto) 81.1 H, Lymph %(Auto) 9.5 L, Ringgold % (Auto) 8.5, Eos % (Auto) 0.1, [...] Patient is a 78-year-old female who presented [facility] ED on 12/27/2023 with left hip pain after a fall at home. She got up from the couch toself catheter, got her walker turned and then lost balance and fell on her left hip. 1. Acute debility due to left impacted transcervical femoral neck fracture. ? Admit under inpatient status to [facility]. Orthopedics consulted. N.p.o. at midnight. PT/OT/case [...] cousin over the phone who lives in [facility]. Patient is clinically doing well. Currently [...] disposition: TBD Charges/Coding Visit Charges Inpatient E&M: 40138 Subs Hosp L2 12/29/23 1247 <Electronically signed by Sunny Bell MD> Cosigner Signature (if applicable): CC: ~ Signed [facility] Work Phone: 1(601) 507-555304-30-2024 Progress note Author Sj [facility] December 29, 2023 11:56am Note Date/Time December 29, 2023 11: 56am [facility] Medical Records Department [address] [place] [address] Progress Note - Orthopedic 12/29/23 1152 MR#: [id number] Acct: [id number] Name: OLGA DONALDSON Rep #:[id number] : 1945 78 From: Sj BHATTI PA-C PCP: Dr. Ramone Smiley MD Status:ADM IN Location: MD3 DL862-8 Subjective Subjective Patient sitting at bedside watching [...] (Auto) 81.1 H, Lymph %(Auto) 9.5 L, Ringgold % (Auto) 8.5, Eos % (Auto) 0.1, [...] Cosigner Signature (if applicable): CC: ~ Signed [facility] Work Phone: 1(816) 815-394004-29-2024 Consult note Author Gabriel Byrd [facility] December 28, 2023 12:59pm Note Date/Time December 28, 2023 12: 59pm [facility] Medical Records Department [address] [place] [address] Consultation - Orthopedics 12/28/23 1252 MR#: [id number] Acct: [id number] Name: OLGA DONALDSON Rep #:[id number] : 1945 78 From: Gabriel Blue PCP: Dr. Ramone Smiley MD Status:[facility] H[facility] Consult Data Date of Consult: 12/28/23 [...] She denies any previous DVTs or PEs. [facility] Medical History Anemia Anxiety Aortic stenosis [...] Sensation is intact to light touch saphenous, shaolnda,l superficial peroneal, deep peroneal and tibial distributions. [...] % (Auto) 51.7, Lymph % (Auto) 37.1, Ringgold % (Auto) 6.6, Eos % (Auto) 3.1, [...] 23:29 EDT Reading Location ID and State: [employer] / [employer] , Service support , Hip/Pelvis X-Ray 12/27/23 23:05 IMPRESSION: Acute impacted fracture of the transcervical femoral neck. Electronically Signed: Weston Patel MD at 23:30 EDT Reading Location ID and State: 0377 / [employer] , Service support , Assessment & [...] rehab. Patient's projected recovery will likely require correction or intensive inpatient rehabilitation prior to discharge back home. (2) Falls: (3) Weakness: (4) Microcytic anemia: (5) Chronic renal failure, stage 3 (moderate): QUALIFIERS: Chronic kidney disease stage 3 subtype: unspecified whether 3a or 3b Qualified Code(s): N18.30 - Chronic kidney disease, stage 3 unspecified 12/28/23 1259 <Electronically signed by Gabriel Byrd MD> Cosigner Signature (if applicable): CC: Dr. Ramone Smiley MD~ Signed [facility] Work Phone: 1(817) 659-532204-29-2024 Procedure [facility] 12-28-2023 Progress note Author Sunny Bell [facility] December 28, 2023 11:23am Note Date/Time December 28, 2023 9:5 2am [facility] Medical Records Department [address] [place] [address] Progress Note - Hospitalist 12/28/23 0949 MR#: [id number] Acct: [id number] Name: OLGA DONALDSON Rep #:[id number] : 1945 78 From: Sunny Blue PCP: Dr. Ramone Smiley MD Status:ADM IN Location: [address] Reason for Visit Reason for Visit: [...] % (Auto) 51.7, Lymph % (Auto) 37.1, Ringgold % (Auto) 6.6, Eos % (Auto) 3.1, [...] Reading Location ID and State: 1407 / [employer] , Service support , Hip/Pelvis X-Ray [...] Patient is a 78-year-old female who presented [facility] ED on 12/27/2023 with left hip pain after a fall at home. She got up from the couch toself catheter, got her walker turned and then lost balance and fell on her left hip. 1. Acute debility due to left impacted transcervical femoral neck fracture. ? Admit under inpatient status to [facility]. Orthopedics consulted. N.p.o. at midnight. PT/OT/case [...] disposition: TBD Charges/Coding Visit Charges Inpatient E&M: 16733 Subs Hosp L2 12/28/23 1123 <Electronically signed by Sunny Bell MD> Cosigner Signature (if applicable): CC: ~ Signed [facility] Work Phone: 1(186) 511-545104-29-2024 History and physical note Author Nestor Bartlett [facility] December 28, 2023 4:47am Note Date/Time December 27, 2023 11: 30pm [facility] Medical Records Department [address] [place] [address] H&P Exam - Hospitalist 12/27/23 2330 MR#: [id number] Acct: [id number] Name: OLGA DONLADSON Rep #:[id number] : 1945 78 From: Nestor roman DO PCP: Dr. Ramone Smiley MD Status:ADM IN Location: MD3 IG233-1 HPI - General General Date of Admission: 12/27/23 Date of Service: 12/27/23 Chief Complaint: Left hip fracture HPI Narrative OLGA DONALDSON, is a 78 F who presented to [facility] ED on 12/27/2023 with left hip [...] Patient will be admitted for further management. [facility] Medical History Anemia Anxiety Aortic stenosis [...] mg chewable tablet 81 mg PO DAILY [facility] 01/21/16 [History Last Taken 08/12/23] albuterol [...] % (Auto) 51.7, Lymph % (Auto) 37.1, Ringgold % (Auto) 6.6, Eos % (Auto) 3.1, [...] Patient is a 78-year-old female who presented [facility] ED on 12/27/2023 with left hip pain after a fall at home. 1. Left femoral neck fracture ? Admit under inpatient status to [facility]. Orthopedics consulted. N.p.o. at midnight. Preop [...] 75 minutes. Charges/Coding Visit Charges Inpatient E&M: 15332 Init Hosp L3 12/28/23 0447 <Electronically signed by Nestor Bartlett DO> Cosigner Signature (if applicable): CC: Dr. Nestor Bartlett DO; Dr. Ramone Smiley MD~ Signed [facility] Work Phone: 1(723) 732-347704-29-2024 Discharge summary Author Queta Cortez [facility] December 28, 2023 2:33am Note Date/Time December 27, 2023 10: 23pm [facility] Medical Records Department [address] [place] [address] Emergency Department Summary 12/27/23 MR#: [id number] Acct: [id number] Name: OLGA DONALDSON Rep #:[id number] : 1945 78 From: Queta Cortez MD PCP: Dr. Ramone Smiley MD Status:ADM IN Location: MS3 WV018-9 HPI HPI - Fall History of Present [...] Medical decision making narrative: Patient placed on creative director. Patient given morphine and Zofran for pain [...] % (Auto) 51.7 Lymph % (Auto) 37.1 Ringgold % (Auto) 6.6 Eos % (Auto) 3.1 [...] seen Dr. Ravi previously prior to his alf. Dr. Byrd is on-call for [facility] and I will speak with him [facility] and need for surgical repair. Discharge Plan Dx/Rx/DC Orders Clinical Impression: Fracture of hip, left, closed Disposition Disposition: Acute Care Hospital [facility] What to do if you have Problems For any increased pain, shortness of breath, bleeding, nausea or vomiting, chestpain, or any unexpected problems, contact your Primary Care Provider. Call [facility] ([phone]) or report to the closest Emergency Room. Call 911 if necessary. 12/28/23 0233 <Electronically signed by Queta Cortez MD> Cosigner Signature (if applicable): CC: Dr. Ramone Smiley MD ~ Signed [facility] Work Phone: 1(782) 626-140712-18-2023 Consult note Author Derrick Hallman [facility] August 17, 2023 11:38am Note Date/Time August 17, 2023 11:38am [facility] Medical Records Department [address] [place] [address] Counseling Note - Pharmacy 08/17/23 1137 MR#: [id number] Acct: [id number] Name: OLGA DONALDSON Rep #:[id number] : 1945 78 From: Derrick Hallman PCP: Dr. Ramone Smiley MD Status:ADM IN Y Location: [place] [address] Pharmacy [facility] has performed discharge medication reconciliation [...] mg chewable tablet 81 mg PO DAILY [facility] 01/21/16 albuterol sulfate 90 mcg/actuation aerosol [...] Signature (if applicable): Date CC: ~ Signed [facility] Work Phone: 1(815) 954-450212-18-2023 [facility], [facility] 11:20am Note Date/Time August 17, 2023 11:12am [facility] Medical Records Department [address] [place] [address] Discharge Summary 08/17/23 1111 MR#: [id number] Acct: [id number] Name: OLGA DONALDSON Rep #:[id number] : 1945 78 From: Sandeep Denson MD PCP: Dr. Ramone Smiley MD Status:ADM IN Location: [place] [address] Providers Date of Admission: 08/13/23 Date of [...] mg chewable tablet 81 mg PO DAILY [facility] 01/21/16 albuterol sulfate 90 mcg/actuation aerosol [...] for PT OT eval and social media marketer to assist with discharge planning 4. Diabetes [...] 08/14/23 13:49 AG (Rec: 08/14/23 13:49 AG [id number]) Nutrition Malnutrition Evidence of Malnutrition Exists Yes [...] Right Blood Culture - Final GNR lactose afternoon babysitter 08/13/23 11:10 Blood Culture (Wb) - Anticubital [...] Anne Marie Marshall MD [Med Staff - Boat Finisher] - 08/25/23 10:30 am Disposition Disposition (needs filled in before D/C Order can be placed): Home, Self Care Charges/Coding Visit Charges Inpatient E&M: 32998 Disch Hosp >30min 08/17/23 1120 <Electronically signed by Sandeep Denson MD> Cosigner Signature (if applicable): CC: Dr. Sandeep Denson MD; Dr. Ramone Smiley MD~ Signed [facility] Work Phone: 1([phone]) 689-811512-17-2023 Progress note Author Nestor Bartlett [facility] August 16, 2023 1:08pm Note Date/Time August 16, 2023 1:08pm [facility] Medical Records Department [address] [place] [address] Progress Note - Hospitalist 08/16/23 1300 MR#: [id number] Acct: [id number] Name: OLGA DONALDSON Rep #:[id number] : 1945 78 From: Nestor roman DO PCP: Dr. 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 Charges/Coding Visit Charges Inpatient E&M: 26629 Subs Hosp L2 08/16/23 1306 <Electronically signed by Nestor Bartlett DO> Cosigner Signature (if applicable): CC: ~ Signed [facility] Work Phone: 1([phone]) 615-842112-16-2023 Progress note Author Nestor Bartlett [facility] August 15, 2023 1:28pm Note Date/Time August 15, 2023 1:24pm [facility] Medical Records Department [address] [place] [address] [place] [address] Progress Note - Hospitalist 08/15/23 1317 MR#: [id number] Acct: [id number] Name: OLGA DONALDSON Rep #:[id number] : 1945 78 From: Nestor roman DO PCP: Dr. 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 3. LIA, resolved [...] 35 minutes. Charges/Coding Visit Charges Inpatient E&M: 59818 Subs Hosp L2 08/15/23 1328 <Electronically signed by Nestor Bartlett DO> Cosigner Signature (if applicable): CC: ~ Signed [facility] Work Phone: 1(757) 707-610812-15-2023 Progress note Author Nestor Bartlett [facility] August 14, 2023 3:08pm Note Date/Time August 14, 2023 2:58pm [facility] Medical Records Department [address] [place] [address] Progress Note - Hospitalist 08/14/23 1454 MR#: [id number] Acct: [id number] Name: OLGA DONALDSON Rep #:[id number] : 1945 78 From: Nestor roman DO PCP: Dr. Ramone Smiley MD Status:ADM IN Location: [place] [address] Reason for Visit Reason for Visit: Diagnoses [...] 08/14/23 13:49 AG (Rec: 08/14/23 13:49 AG [id number]) Nutrition Malnutrition Evidence of Malnutrition Exists Yes [...] (Auto) 79.7 H, Lymph% (Auto) 11.1 L, Ringgold % (Auto) 6.1, Eos % (Auto) 0.6, [...] Catheterized Urine Culture - Preliminary GNR lactose afternoon babysitter 08/13/23 12:05 Blood Culture (Wb) - Anticubital Right Blood Culture - Preliminary GNR lactose afternoon babysitter 08/13/23 11:10 Blood Culture (Wb) - Anticubital Right Blood Culture - Preliminary GNR lactose afternoon babysitter 08/13/23 11:00 Nasal Secretion SARS-CoV-2 & FLU [...] is a 78-year-old female who presented to [facility] ED on 08/13/2023 with increasing generalized [...] cultures preliminarily positive for gram-negative wes lactose afternoon babysitter, follow-up speciation and sensitivities. 3. LIA, resolved [...] 35 minutes. Charges/Coding Visit Charges Inpatient E&M: 94059 Subs Hosp L2 08/14/23 1508 <Electronically signed by Nestor Bartlett DO> Cosigner Signature (if applicable): CC: ~ Signed [facility] Work Phone: 1(135) 901-284612-14-2023 Discharge summary Author [facility] [place] [place] [facility] August 13, 2023 3:29pm Note Date/Time August 13, 2023 10:40am [facility] Medical Records Department [address] [place] [address] Emergency Department Summary 08/13/23 MR#: [id number] Acct: [id number] Name: OLGA DONALDSON Rep #:[id number] : 1945 78 From: Robert Allison DO PCP: Dr. Ramone Smiley MD Status:ADM IN Location: [address] History of Present Illness Chief Complaint: [...] She denies chest pain. She self caths. [facility] Medical History Anemia Anxiety Aortic stenosis [...] 82.7 H Lymph % (Auto) 9.4 L Ringgold % (Auto) 6.1 Eos % (Auto) 0.1 [...] Sl. Cloudy Urine pH 5.0 Ur Specific Tatamy 1.015 Urine Protein 30 H Urine Glucose [...] your Primary Care Provider. Call [facility] ([phone]) or report to the closest Emergency Room. Call 911 if necessary. 08/13/23 1529 <Electronically signed by Robert Allison DO> Cosigner Signature (if applicable): CC: Dr. Ramone Smiley MD ~ Signed [facility] Work Phone: 1(615) 675-425112-14-2023 History and physical note Author Heydi Amaya [facility] August 13, 2023 2:47pm Note Date/Time August 13, 2023 2:33pm [facility] Medical Records Department [address] [place] [address] H&P Exam - Hospitalist 08/13/23 1431 MR#: [id number] Acct: [id number] Name: OLGA DONALDSON Rep #:[id number] : 1945 78 From: Heydi Amaya MD PCP: Dr. Ramone Smiley MD Status:ADM IN Location: U [id number] 1 HPI - General General Date of Admission: 08/13/23 Date of Service: 08/13/23 Chief Complaint: Increasing weakness HPI Narrative OLGA DONALDSON, is [id number] female history of GERD, COPD, hypertension, diabetes, chronic urinary retention with self cathing presented to [facility] 08/13/2023 with increasing generalized weakness and [...] No other acute complaints at this time. [facility] Medical History Anemia Anxiety Aortic stenosis [...] (Auto) 82.7 H, Lymph% (Auto) 9.4 L, Ringgold % (Auto) 6.1, Eos % (Auto) 0.1, [...] Sl. Cloudy, Urine pH 5.0, Ur Specific Tatamy 1.015, Urine Protein 30 H, Urine Glucose [...] EST Reading Location ID and State: [facility] , Service support , Assessment & Plan [...] and UTI will place temporary Serna # ILA -May be due to poor p.o. intake [...] Amaya MD Charges/Coding Visit Charges Inpatient E&M: 36077 Init Hosp L2 08/13/23 1447 <Electronically signed by Heydi Amaya MD> Cosigner Signature (if applicable): CC: Dr. Ramone Smiley MD; Dr. Heydi Amaya MD~ Signed [facility] Work Phone: 1(341) 977-598605-31-[address] Lockwood [facility] January 28, 2023 4:30pm Note Date/Time January 28, 2023 3:17p m [facility] Medical Records Department [address] [place] [address] Emergency Department Summary 01/28/23 MR#: [id number] Acct: [id number] Name: OLGA DONALDSON Rep #:[id number] : 1945 78 From: Joseph Lockwood MD [...] pain which she has every single day. [facility] Medical History Anemia Anxiety Aortic stenosis [...] unit/mL subcutaneous solution 22 unit SQ BIDCM owgivdfk22/03/20 [History Last Taken Unknown] insulin detemir U-100 [...] % (Auto) 56.6 Lymph % (Auto) 34.2 Ringgold % (Auto) 5.6 Eos % (Auto) 2.6 [...] rhythm with a rate of 86. Normal IN and QTc intervals. No ischemic changes. Interpreted [...] UNIT/ML solution 22 unit SQ BIDCM vitamin O-miipenztglpf-zmyqdwv 500 MG tablet,chewable 250 mg PO DAILY Primary Care Provider: Ramone Smiley Referrals: Ramone Smiley MD [Primary Care Provider] - 3-5 Days Disposition Disposition: Home, Self Care What to do if you have Problems For any increased pain, shortness of breath, bleeding, nausea or vomiting, chestpain, or any unexpected problems, contact your Primary Care Provider. Call [facility] ([phone]) or report to the closest Emergency Room. Call 911 if necessary. 01/28/23 1630 <Electronically signed by Joseph Lockwood MD> Cosigner Signature (if applicable): CC: Dr. Ramone Smiley MD ~ Signed [facility] Work Phone: 1(475) 668-280009-07-2022 NoteHNO ID: [id number] Author: 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 APRN.OVERHEAD WORKER Service: ? Author Type: Nurse Practitioner Type: [...] an every 2-week basis for 4 cycles (CALGB-88192). Completed a year of trastuzumab 06/16/06. Referred back or anemia. Admitted to [facility] 12/02/2019 for chest pain with ambulation. [...] 1.00 - 4.00 k/uL 2.70 2.30 2.03 Ringgold% % 7.0 6.6 6.9 Abs Ringgold <0.87 k/uL 0.49 0.47 0.47 Eosin% % [...] loss - ICD9: 280.0, (more content not included)...[facility]09-07-2022 History of Present illness Narrative* 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, UNDERGROUND CONDUIT INSTALLER.OVERHEAD WORKER - 05/07/2022 1:33 PM EDT Chief Complaint [...] an every 2-week basis for 4 cycles (CALGB-43011). Completed a year of trastuzumab 06/16/06. Referred back or anemia. Admitted to [facility] 12/02/2019 for chest pain with ambulation. [...] 1.00 - 4.00 k/uL 2.70 2.30 2.03 Ringgold% % 7.0 6.6 6.9 Abs Ringgold <0.87 k/uL 0.49 0.47 0.47 Eosin% % [...] visit. 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 APRN.CNP [facility] Miscellaneous Notes* Telephone Encounter - Stacie Varner LPN - 02/10/2022 8:33 AM EDT Pt called and notified, pt voices understanding. Stacie Varner LPN * Telephone Encounter - Joseph Rolle DO - 02/10/2022 6:20 AM EDT Can let her know CBC and iron levels doing well. Follow up as scheduled. Joseph Rolle DO [facility]-2022 Miscellaneous Notes* Telephone Encounter - Joseph Rolle DO - 09/30/2021 12:13 PM EST [...] filed. Joseph Rolle DO documented [facility]07-15-2021 Miscellaneous Notes* Telephone Encounter - Marina Mathis [...] drive and will complete lab work and tile picker stool cards 03/21/2021, same day as [...] may have had one more recently at [facility]). Add on for 5 more doses of iron sucrose and repeat CBC/Iron studies about a month after completing. Joseph Rolle DO documented [facility]Day[facility] Center[facility] Author Eboni Chan [facility] December 30, 2023 2:23pm Note Date/Time December 30, 2023 2:24pm [facility] Medical Records Department [address] [place] [address] Counseling Note - Pharmacy 12/30/23 1423 MR#: [id number] Acct: [id number] Name: OLGA DONALDSON Rep #:[id number] : 1945 78 From: Eboni Chan PCP: Dr. Ramone Smiley MD Status:ADM IN Location: [place] [address] Pharmacy [place] Med Reconciliation Pharmacy Service has performed discharge medication reconciliation for this patient. The patient's discharge medication list was reviewed for discrepancies and discrepancies were resolved. Medications at Discharge Home Medications aspirin 81 mg chewable tablet 81 mg PO DAILY [facility] 01/21/16 albuterol sulfate 90 mcg/actuation aerosol [...] bisacodyl 10 mg rectal suppository 10 mg IN DAILY #0 ea 12/30/23 insulin glargine-yfgn 100 [...] tab PO BID #0 tabs 12/30/23 12/30/23 2303 <Electronically signed by Eboni Chan> Date _ Eboni Chan Cosigner Signature (if applicable): Date CC: ~ Signed [facility] Work Phone: Consult note Author Eboni Chan [facility] Note Date/Time January 24, 2025 2:52p m [facility] Medical Records Department [address] [place] [address] Counseling Note - Pharmacy 01/24/25 1452 MR#: [id number] Acct: [id number] Name: OLGA DONALDSON Rep #:[id number] : 1945 80 From: Eboni Chan PCP: Dr. Ramone Smiley MD Status:ADM [facility] Counseling Pharmacy Service has performed discharge medication [...] mg chewable tablet 81 mg PO DAILY [facility] 01/21/16 magnesium oxide 400 mg (241.3 [...] netarsudil 0.02 %-latanoprost 0.005 % eye drops (Rupertlatan) 1 drp EACH EYE DAILY01/15/25 psyllium husk [...] Signature (if applicable): Date CC: ~ Signed [facility] Work Phone: Discharge summary Author Sunny Bell [facility] December 30, 2023 2:14pm Note Date/Time December 30, 2023 2:05pm [facility] Medical Records Department [address] [place], [place] [address] Transfer to [facility] MR#: [id number] Acct: [id number] Name: OLGA DONALDSON Rep #:[id number] : 1945 78 From: Snuny Blue PCP: Dr. Ramone Smiley MD Status:ADM IN Certification of patient admission REQUIRED AT TIME OF ADMISSION. I CERTIFY THAT POST-HOSPITAL F SERVICES ARE REQUIRED TO BE GIVEN ON AN IN-PATIENT BASIS BECAUSE OF THE ABOVE NAMED PATIENT'S NEED FOR SHELTER CARE ON A CONTINUING BASIS FOR THE CONDITION(S) FOR WHICH HE/SHE WAS RECEIVING IN-PATIENT HOSPITAL SERVICES PRIOR TO HIS/HER TRANSFER TO THE [facility]. 12/30/23 1414<Electronically signed by Sunny Bell MD> [...] Patient is a 78-year-old female who presented [facility] ED on 12/27/2023 with left hip pain after a fall at home. She got up from the couch toself catheter, got her walker turned and then lost balance and fell on her left hip. 1. Acute debility due to left impacted transcervical femoral neck fracture. ? Admit under inpatient status to [facility]. Orthopedics consulted. N.p.o. at midnight. PT/OT/case [...] cousin over the phone who lives in [facility]. Patient is clinically doing well. Currently [...] 0RF bisacodyl 10 mg Suppository 10 mg IN DAILY Qty: 0 0RF insulin glargine-yfgn 100 [...] in before D/C Order can be placed): Residential Facility 12/30/231413 <Electronically signed by Sunny Bell MD> Cosigner Signature (if applicable): CC: Dr. Nestor Bartlett DO; Dr. Ramone Smiley MD; Dr. Gabriel Byrd MD ~ [facility] Work Phone: Discharge summary Author Sunny Bell [facility] December 30, 2023 2:26pm Note Date/Time December 30, 2023 2:21pm [facility] Medical Records Department [address] [place] [address] Discharge Summary 12/30/231413 MR#: [id number] Acct: [id number] Name: OLGA DONALDSON Rep #:[id number] : 1945 78 From: Sunny Blue PCP: Dr. Ramone Smiley MD Status:[facility] Date of Admission: 12/27/23 Date of [...] Patient is a 78-year-old female who presented [facility] ED on 12/27/2023 with left hip pain after a fall at home. She got up from the couch toself catheter, got her walker turned and then lost balance and fell on her left hip. 1. Acute debility due to left impacted transcervical femoral neck fracture. ? Admit under inpatient status to [facility]. Orthopedics consulted. N.p.o. at midnight. PT/OT/case [...] cousin over the phone who lives in [facility]. Patient is clinically doing well. Currently [...] mg chewable tablet 81 mg PO DAILY [facility] 01/21/16 albuterol sulfate 90 mcg/actuation aerosol [...] bisacodyl 10 mg rectal suppository 10 mg IN DAILY #0 ea 12/30/23 insulin glargine-yfgn 100 [...] % (Auto) 63.9, Lymph % (Auto) 25.3, Ringgold % (Auto) 8.7, Eos % (Auto) 1.4, [...] 0RF bisacodyl 10 mg Suppository 10 mg IN DAILY Qty: 0 0RF insulin glargine-yfgn 100 [...] in before D/C Order can be placed): Residential Facility Charges/Coding Visit Charges Inpatient E&M: 85060 Disch Hosp >30min 12/30/23 1426 <Electronically signed by Sunny Bell MD> Cosigner Signature (if applicable): CC: Dr. Ramone Smiley MD; Dr. Sunny Bell MD; Dr. Gabriel Byrd MD~ Signed [facility] Work Phone: Discharge summary Author Melba Hartmann [facility] Note Date/Time January 24, 2025 1:27p m [facility] Medical Records Department [address] [place] [address] Instructions for Home/Discharge Instructions 01/24/25 1326 MR#: [id number] Acct: [id number] Name: OLGA DONALDSON Rep #:[id number] : 1945 80 From: Melba Hartmann MD [...] DO; Dr. Marcelina Soto MD ~ Signed [facility] Work Phone: Discharge summary [facility] Note Date/Time January 26, 2025 5:10a m [facility] Medical Records Department [address] [place] [address] Emergency Department Summary 01/26/25 MR#: [id number] Acct: [id number] Name: OLGA DONALDSON Rep #:[id number] : 1945 80 From: Jg Bryan DO [...] symptoms and therefore comes in for evaluation [facility] Medical History Fracture of hip, left, [...] mg tablet 25 mg PO BID BLOOD IN ESSURE 08/16/18 01/15/25 History pantoprazole 40 mg [...] cardiac dysrhythmia. Patient was kept on the creative director and there was no dysrhythmia noted. Blood [...] % (Auto) 65.0 Lymph % (Auto) 25.1 Ringgold % (Auto) 6.7 Eos % (Auto) 2.8 [...] the upper limits for size. Reading Location: [facility] Chest x-ray as interpreted by the emergency [...] you have any further concerns Print Language: Guamanian Disposition Disposition: Home, Self Care What to do if you have Problems For any increased pain, shortness of breath, bleeding, nausea or vomiting, chestpain, or any unexpected problems, contact your Primary Care Provider. Call [facility] ([phone]) or report to the closest Emergency Room. Call 911 if necessary. 01/26/25 0510 <Electronically signed by Jg Bryan DO> Cosigner Signature (if applicable): CC: Dr. Ramone Smiley MD ~ Signed [facility] Work Phone: Evaluation note* Diagnosis Onset Date Resolution Status Multiple thyroid nodules acu te Chronic renal failure, stage 3 (moderate) chronic Hypercalcemia chronic Abscess acute Abscess acute Abscess acute [facility] Work Phone: Evaluation note* Diagnosis Iron deficiency anemia due to chronic blood loss- Primary Iron deficiency anemia secondary to blood loss (chronic) [facility]* Diagnosis Onset Date Resolution Status Abscess acute Abscess acute Abscess acute Abscess acute Abscess acute Paronychia of left index finger acute [facility] Work Phone: Evaluation note* Diagnosis Iron deficiency anemia due to chronic blood loss- Primary Iron deficiency anemia secondary to blood loss (chronic) documented in this encounter [facility] note* Diagnosis Anemia, unspecified type- Primary documented in this encounter [facility] note* Diagnosis Iron deficiency anemia due to chronic blood loss- Primary Iron deficiency anemia secondary to blood loss (chronic) documented in this encounter [facility] noteNo assessment information availableWSamaritan Hospital Work Phone: Evaluation note* Diagnosis Onset Date Resolution Status Gastroenteritis acute [facility] Work Phone: Evaluation note* Diagnosis Onset Date Resolution Status Gastroenteritis acute Falls acute Weakness acute Asthma chronic COPD (chronic obstructive pulmonary disease) chronic GERD (gastroesophageal reflux disease) chronic History of malignant neoplasm of breast chronic Hypertension chronic Neurogenic bladder chronic Type 2 diabetes mellitus chr onic Acute hyponatremia resolved Acute UTI resolved LIA (acute kidney injury) re solved [facility] Work Phone: Evaluation note* Diagnosis Onset Date Resolution Status Fracture of hip, left, closed acute [facility] Work Phone: Evaluation note* Diagnosis Onset Date Resolution Status Falls acute Fracture of hip, left, closed acute Microcytic anemia acute Weakness acute Chronic renal failure, stage 3 (moderate) chronic Hypercalcemia chronic [facility] Work Phone: Evaluation note* Diagnosis Onset Date Resolution Status Gastroenteritis acute Acute hyponatremia acute Acute UTI acute LIA (acute kidney injury) ac [place] acute Weakness acute Asthma chronic COPD (chronic obstructive pulmonary disease) chronic GERD (gastroesophageal reflux disease) chronic History of malignant neoplasm of breast chronic Hypertension chronic Neurogenic bladder chronic Type 2 diabetes mellitus chr onic [facility] Work Phone: History and physical note Author Heydi Amaya [facility] August 13, 2023 2:47pm Note Date/Time August 13, 2023 2:33pm [facility] Medical Records Department [address] [place] [address] H&P Exam - Hospitalist 08/13/23 1431 MR#: [id number] Acct: [id number] Name: OLGA DONALDSON Rep #:[id number] : 1945 78 From: Heydi Amaya MD PCP: Dr. Ramone Smiley MD Status:ADM IN Location: [place] [id number]- 1 HPI - General General Date of Admission: 08/13/23 Date of Service: 08/13/23 Chief Complaint: Increasing weakness HPI Narrative OLGA DONALDSON, is [id number] female history of GERD, COPD, hypertension, diabetes, chronic urinary retention with self cathing presented to [facility] 08/13/2023 with increasing generalized weakness and [...] No other acute complaints at this time. [facility] Medical History Anemia Anxiety Aortic stenosis [...] mg chewable tablet 81 mg PO DAILY [facility] 01/21/16 [History Last Taken 08/12/23] albuterol [...] (Auto) 82.7 H, Lymph% (Auto) 9.4 L, Ringgold % (Auto) 6.1, Eos % (Auto) 0.1, [...] Sl. Cloudy, Urine pH 5.0, Ur Specific Tatamy 1.015, Urine Protein 30 H, Urine Glucose [...] Amaya MD Charges/Coding Visit Charges Inpatient E&M: 15026 Init Hosp L2 08/13/23 1447 <Electronically signed by Heydi Amaya MD> Cosigner Signature (if applicable): CC: Dr. Ramone Smiley MD; Dr. Heydi Amaya MD~ Signed [facility] Work Phone: Hospital Discharge instructions Additional Instructions Chest x-ray negative. COVID, flu, RSV negative. Your glucose 321 the lab normal gap. You are given 10 units of short acting insulin. You were started on antibiotics and steroids. Your glucose will be elevated with the steroids. Continue insulin including your sliding scale. Next dose of antibiotics steroids is tomorrow. This was sent to [facility] Work Phone: Hospital Discharge instructions Additional Instructions Take medications as prescribed. Follow-up your doctor in outpatient setting. 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 Expl anation Advance Directive(s) 05/12/2016 10:06 AM Advance Directive(s) 04/30/2016 11:10 AM Advance Directive(s) 02/19/2016 5:55 AM Advance Directive(s) 02/14/2016 3:07 PM Advance Directive Response Recorded Date/ Time Advance Directives Yes December 02 7:47am Living Will Yes July 14, 2 022 2:52pm Power of Bull Chain Operator Yes July 14, 2022 2:52pm Name of Medical Power of Bull Chain Operator son July 14, 2022 2:52pm Advance Directive Response Recorded Date/ Time Advance Directives Yes December 02 8:47am Living Will Yes July 14, 2 022 3:52pm Power of Bull Chain Operator Yes July 14, 2022 3:52pm Advance Directive Response Recorded Date/ Time Name of Medical Power of Bull Chain Operator SHANTELLE January 28, 2023 3:11pm Advance Directives Yes December 02 8:47am Living Will Yes January 28, 2023 3 :11pm Power of Bull Chain Operator Yes January 28, 2023 3:11pm Advance Directive Response Recorded Date/ Time Name of Medical Power of Bull Chain Operator Sarita Donaldson July 18, 2023 11:35pm Advance Directives Yes December 02 7:47am Living Will Yes July 18, 2 023 11:35pm Power of Bull Chain Operator Yes July 18, 2023 11:35pm Advance Directive Response Recorded Date/ Time Name of Medical Power of Bull Chain Operator . August 07, 2023 9:45pm Advance Directives Yes December 02 7:47am Living Will No August 13, 2 023 3:22pm Power of Bull Chain Operator No August 13, 2023 3:22pm Name of Medical Power of Bull Chain Operator Sarita Donaldson July 18, 2023 11:35pm Advance Directive Response Recorded Date/ Time Advance Directives Yes December 02 8:47am Living Will No August 13, 2 023 4:22pm Power of Bull Chain Operator No August 13, 2023 4:22pm Advance Directive Response Recorded Date/ Time Advance Directives Yes December 02 8:47am Living Will No December 27, 2023 11:02pm Power of Bull Chain Operator No December 26 11:02pm Advance Directive Response Recorded Date/ Time Advance Directives Yes December 02 8:47am Living Will No December 28, 2023 12:27am Power of Bull Chain Operator No December 27 12:27am Advance Directive Response Recorded Date/ Time Name of Medical Power of Bull Chain Operator . August 07, 2023 9:45pm Advance Directives Yes December 02 7:47am Living Will No August 13, 023 11:05am Power of Bull Chain Operator No August 13, 2023 11:05am Name of Medical Power of Bull Chain Operator Sarita Donaldson July 18, 2023 11:35pm Advance Directive Response Recorded Date/ Time Do you have a Healthcare Power of Bull Chain Operator? No January 07, 2025 3:00pm Advance Directives Yes December 02 8:47am Advance Directive Response Recorded Date/ Time Do you have a Healthcare Power of Bull Chain Operator? No January 15, 2025 2:24pm Do you have a Healthcare Power of Bull Chain Operator? No January 07, 2025 3:00pm Advance Directives Yes December 02 8:47am Advance Directive Response Recorded Date/ Time Do you have a Healthcare Power of Bull Chain Operator? No January 15, 2025 2:24pm Do you have a Healthcare Power of Bull Chain Operator? No January 20, 2025 4:39am Do you have a Healthcare Power of Bull Chain Operator? No January 07, 2025 3:00pm Advance Directives Yes December 02 8:47am Advance Directive Response Recorded Date/ Time Do you have a Healthcare Power of Bull Chain Operator? No January 15, 2025 2:24pm Do you have a Healthcare Power of Bull Chain Operator? No January 20, 2025 4:39am Do you have a Healthcare Power of Bull Chain Operator? No January 07, 2025 3:00pm Do you have a Healthcare Power of Bull Chain Operator? No January 26, 2025 3:01am Advance Directives [...] section and content) DATE CREATED AUTHOR 02/25/2018 [facility] DATE CREATED AUTHOR AUTHOR'S ORGANIZ ATION 05/08/2022 [facility] DATE CREATED AUTHOR AUTHOR'S ORGANIZ ATION 02/01/2025 [facility] Goals (unrecognized section and content) Goals [...] or prosecute any alcohol or drug abuse patient.[facility] the event this information is protected by the Federal Confidentiality of Alcohol and Drug Abuse Patient Records regulations: The Federal rules restrict any use of the information to criminally investigate or prosecute any alcohol or drug abuse patient.[facility] Hospital[facility] the event this information is protected by the Federal Confidentiality of Alcohol and Drug Abuse Patient Records regulations: The Federal rules restrict any use of the information to criminally investigate or prosecute any alcohol or drug abuse patient.[facility] the event this information is protected by the Federal Confidentiality of Alcohol and Drug Abuse Patient Records regulations: The Federal rules restrict any use of the information to criminally investigate or prosecute any alcohol or drug abuse patient.[facility] the event this information is protected by the Federal Confidentiality of Alcohol and Drug Abuse Patient Records regulations: The Federal rules restrict any use of the information to criminally investigate or prosecute any alcohol or drug abuse patient.[facility] Care Teams (unrecognized sec tion and content) [...] January 26, 2025 End: January 26, 2025 Cotton Washer Relationship Specialty Start Date End Date Ramone Smiley MD PCP - General Family Practice 08/16/15 Cotton Washer Relationship Specialty Start Date End Date Ramone Smiley MD PCP - General Family Practice 08/16/15 Cotton Washer Relationship Specialty Start Date End Date Ramone Smiley MD PCP - General Family Practice 08/16/15 Cotton Washer Relationship Specialty Start Date End Date Ramone Smiley MD PCP - General Family Practice 08/16/15 Cotton Washer Relationship Specialty Start Date End Date Ramone [...] BE BASED ON THE PRIMARY CLINICAL RECORDS. [facility]. provides no warranty or guarantee of the accuracy or completeness of information in this document.
[2025-02-04] MEDS: Ipratropium/Albuterol Sulfate 3 ML AMPUL.NEB INHALATION ×2 (13:29→20:29)
[2025-02-04] MEDS: Furosemide 20 MG/2 ML VIAL IV ×2 (14:47→21:30)
[2025-02-04] MEDS: CLARIFY ORDER 1 EACH NOTE (14:49)
[2025-02-04] MEDS: 0.9% Saline Lock 10 ML Syringe IV ×2 (14:52→21:31)
[2025-02-04] MEDS: Insulin Lispro 100 UNIT/ML INSULN.PEN 10 UNIT SC (17:36)
[2025-02-04 17:51] LABS: Bedside Glucose 240 mg/dL (74-106)
--- NOTE | 2025-02-04 18:54 | PCM.HP.STD ---
HPI - General General Date of Admission: 02/04/25 Date of Service: 02/04/25 Chief Complaint: Shortness of breath HPI Narrative OLGA DONALDSON, is a 80 F who presents to the emergency room at [facility] with complaints of increasing shortness of breath since last night. Patient has a history of congestive heart failure and chronic obstructive pulmonary disease, she is on no home oxygen. When squad came to transport the patient, they noted her room air pulse ox was 81%. Workup in the emergency room included a CBC which showed a slightly elevated white blood cell count, hemoglobin was 10.7, chest x-ray was obtained which showed chronic changes, heart size and silhouette were unremarkable, there was possibility of atelectasis in the lower lung white. There was no evidence of pneumothorax, effusion, or infiltrate. Troponin was elevated at 139, CT of the chest was performed and showed no evidence of pulmonary embolism, bibasilar atelectasis was noted, there were reticular nodular opacities in the anterior left upper lobe likely secondary to prior radiation treatment changes, there is noted to be mild emphysema noted. Follow-up troponin was 133, beta natruretic peptide was elevated at 6247. The patient's medical picture was not clear, this examiner felt that the patient did have an exacerbation of COPD with ongoing acute on chronic congestive heart failure. Patient will be admitted to PCU, she was placed on IV Lasix, IV Solu-Medrol, and she will be given aerosol treatments. I do not believe the patient has pneumonia. Patient's oxygen requirement in the emergency room was 2 L. [facility] Medical History Elevated troponin Coronary artery disease Aortic stenosis Hypertension Obesity (BMI 30.0-34.9) Lactic acidosis Fracture of hip, left, closed Paronychia of left index finger Vaginal cyst Anxiety Depression Irregular heart beat Multiple thyroid nodules Foraminal stenosis of lumbar region Lumbar spinal stenosis Diabetic retinopathy Colon polyp Thyroid goiter Hyperlipidemia Hypokalemia Microcytic anemia Neurogenic bladder Hypophosphatemia Hypercalcemia Former smoker UTI (urinary tract infection) Iron deficiency anemia Hyponatremia Urine retention Chronic renal failure, stage 3 (moderate) Cellulitis and abscess of finger, unspecified Retinopathy Peripheral artery disease Leg weakness, bilateral GERD (gastroesophageal reflux disease) Chronic idiopathic constipation COPD (chronic obstructive pulmonary disease) Polypharmacy Hypertension Carpal tunnel syndrome of right wrist Strain of right rotator cuff capsule Rhinitis Urinary retention with incomplete bladder emptying Vitamin D deficiency Asthma Pruritus Goiter, nontoxic, multinodular Anemia Diabetes Hx of venous thrombosis and embolism History of malignant neoplasm of breast Type 2 diabetes mellitus Home Medications ?Medication ?Instructions ?Recorded ?Last Taken ?Type aspirin 81 mg chewable tablet 81 mg PO DAILY HEART HEALTH 01/21/16 01/15/25 History magnesium oxide 400 mg (241.3 mg 400 mg PO BID SUPPLEMENT 08/16/18 01/15/25 History magnesium) tablet metoprolol tartrate 25 mg tablet 25 mg PO BID BLOOD PRESSURE 08/16/18 01/15/25 History pantoprazole 40 mg tablet,delayed 40 mg PO DAILY ACID REFLUX 12/02/19 01/15/25 History release empagliflozin 10 mg tablet 10 mg PO DAILY DIABETES 10/18/20 01/15/25 History (Jardiance) sitagliptin phosphate 50 mg tablet 50 mg PO DAILY DIABETES 10/18/20 01/15/25 History (Januvia) multivitamin 1 tab PO DAILY VITAMIN 12/06/21 01/15/25 History pravastatin 20 mg tablet 20 mg PO DAILY CHOLESTEROL 12/06/21 01/15/25 History ascorbic acid (vitamin C) 250 mg 250 mg PO DAILY SUPPLEMENT 08/13/23 01/15/25 History tablet (Vitamin C) gabapentin 100 mg capsule 100 mg PO QHS NERVE PAIN 08/13/23 01/14/25 History roflumilast 500 mcg tablet 500 mcg PO DAILY COPD 08/13/23 01/15/25 History insulin lispro 100 unit/mL 10 unit subcut TIDAC short acting 12/30/23 01/15/25 History subcutaneous pen (Humalog KwikPen insulin (U-100) Insulin) budesonide 160 mcg-glycopyr 9 2 inh inhalation BID breathing 01/07/25 01/15/25 History mcg-formot 4.8 mcg/actuation HFA inhaler (Breztri Aerosphere) diltiazem HCl 180 mg 180 mg PO DAILY heart 01/07/25 01/15/25 History capsule,extended release 24 hr, controlled insulin glargine 100 unit/mL (3 20 unit subcut BID diabetes 01/07/25 01/15/25 History mL) subcutaneous pen (Lantus Solostar U-100 Insulin) ipratropium bromide 21 mcg (0.03 1 - 2 spray intranasal Q6H PRN 01/07/25 Unknown History %) nasal spray allergy symptoms lancets 28 gauge (TRUEplus Lancets) 01/07/25 Unknown History acetaminophen 500 mg tablet 1,000 mg PO Q6H PRN Pain Score 1-3 01/15/25 Unknown History azelastine 137 mcg (0.1 %) nasal 1 - 2 spray intranasal BID nasal 01/15/25 01/15/25 History spray spray mecobalamin (vitamin B12) 1,000 1,000 mcg PO DAILY health 01/15/25 01/15/25 History mcg chewable tablet (B12 Active) maintenance menthol 0.44 %-zinc oxide 20.6 % 1 applic topical 4X/DAY PRN skin 01/15/25 Unknown History topical ointment (CalaSoothe) irritation netarsudil 0.02 %-latanoprost 1 drp EACH EYE DAILY eye drops 01/15/25 01/15/25 History 0.005 % eye drops (Gilmerlatan) psyllium husk 0.4 gram capsule 0.4 g PO DAILY constipation 01/15/25 01/15/25 History (Daily Fiber) tirzepatide 5 mg/0.5 mL 5 mg subcut QWEEK diabetes 01/15/25 Unknown History subcutaneous pen injector (Prabhu) potassium chloride 20 mEq 20 meq PO BID supplement 02/04/25 Unknown History tablet,extended release (K-Tab) furosemide 20 mg tablet (Lasix) 60 mg (3 x 20 mg) PO BID #180 tabs 02/06/25 Unknown Rx ipratropium 0.5 mg-albuterol 3 mg 3 ml inhalation Q6H.RT #120 amps 02/06/25 Unknown Rx (2.5 mg base)/3 mL nebulization soln prednisone 10 mg tablet 10 mg PO BID #20 tabs 02/06/25 Unknown Rx Allergy/AdvReac Type Severity Reaction Status Date / Time adhesive tape (tape) Allergy NEEDS Verified 02/04/25 06:21 FOLLOW-UP amoxicillin Allergy YEAST Verified 02/04/25 06:21 INFECTION cephalexin monohydrate (From Allergy Rash Verified 02/04/25 06:21 Keflex) clopidogrel bisulfate (From Allergy Other Verified 02/04/25 06:21 Plavix) Family History Daughter Breast cancer Father Hypertension Sister Cancer Kidney disease Mother Pancreatic cancer Surgical History History of left hip hemiarthroplasty S/P fine needle aspiration (~10/2020) H/O dilation and curettage (~07/10/20) History of Achilles tendon repair Retinopathy History of lumpectomy of left breast Social History household members: spouse Smoking Status: Former smoker alcohol intake: never substance use type: does not use caffeine: Yes what type of physical activity do you participate in: none seatbelt use: always do you feel safe at home: Yes additional social history: [employer]- retired ROS Constitutional Constitutional: Denies anorexia, change in weight, chills, fatigue, fever(s), night sweats or weakness Eyes Eyes: Denies blurry vision, change in vision, discharge from eye(s) or eye pain Cardiovascular Cardiovascular: Denies chest pain, claudication, edema or palpitations Respiratory/Chest Respiratory/Chest: Reports dyspnea, shortness of breath at rest and shortness of breath with exertion; Denies cough or hemoptysis Gastrointestinal Gastrointestinal: Denies abdominal pain, constipation, diarrhea, hematemesis, hematochezia, melena, nausea or vomiting Genitourinary Genitourinary: Denies dysuria, hematuria, urinary frequency, urinary hesitancy, urinary incontinence or urinary urgency Musculoskeletal Musculoskeletal: Denies back pain, joint pain, joint stiffness, joint swelling, myalgias or neck pain Neurologic Neurologic: Denies abnormal gait, abnormal speech, dizziness, focal weakness, headache(s), loss of vision, numbness, other visual disturbances, paresthesias, syncope or tingling Psychiatric Psychiatric: Denies anxiety, cognitive impairment, depression, irritability, mood swings or suicidal ideation Endocrine Endocrinology: Denies change in body appearance, cold intolerance, excessive sweating, heat intolerance, polydipsia or polyuria Hematologic/Lymphatic Hematologic/Lymphatic: Denies none, anemia, easy bleeding, easy bruising or lymphadenopathy Allergic/Immunologic Allergic/Immunologic: Denies rhinitis, urticaria, eczemia or asthma Vital Signs Vital Signs Vital Signs: 02/04/25 06:20 02/04/25 06:20 02/04/25 06:57 Temperature 98.8 F Temperature Source Oral Pulse Rate 97 Respiratory Rate 22 H Respiratory Effort Respiratory Depth Respiratory Pattern Blood Pressure 148/70 H Blood Pressure Mean 96 Blood Pressure Source Blood Pressure Position Blood Pressure Location Pulse Ox 81 98 94 Oxygen Delivery Method Room Air Nasal Cannula Nasal Cannula Oxygen Flow Rate (L/min) 4 4 02/04/25 06:57 02/04/25 07:06 02/04/25 07:23 Temperature 98.3 F Temperature Source Oral Pulse Rate 94 93 Respiratory Rate 28 H 28 H Respiratory Effort Short of Breath Respiratory Depth Respiratory Pattern Tachypnea Blood Pressure 104/52 L Blood Pressure Mean 69 Blood Pressure Source Blood Pressure Position Blood Pressure Location Pulse Ox 93 Oxygen Delivery Method Room Air Oxygen Flow Rate (L/min) 02/04/25 07:45 02/04/25 08:00 02/04/25 09:00 Temperature 98.3 F 98.3 F Temperature Source Oral Oral Pulse Rate 92 87 Respiratory Rate 23 H 25 H Respiratory Effort Respiratory Depth Respiratory Pattern Blood Pressure 118/49 L 119/42 L Blood Pressure Mean 72 67 Blood Pressure Source Blood Pressure Position Blood Pressure Location Pulse Ox 84 96 98 Oxygen Delivery Method Room Air Nasal Cannula Nasal Cannula Oxygen Flow Rate (L/min) 4 4 02/04/25 10:00 02/04/25 11:00 02/04/25 11:06 Temperature 98.6 F Temperature Source Pulse Rate 88 88 88 Respiratory Rate 18 30 H 30 H Respiratory Effort Respiratory Depth Respiratory Pattern Blood Pressure 111/44 L 111/46 L 111/46 L Blood Pressure Mean 66 67 67 Blood Pressure Source Blood Pressure Position Blood Pressure Location Pulse Ox 96 99 99 Oxygen Delivery Method Nasal Cannula Nasal Cannula Oxygen Flow Rate (L/min) 2 3 02/04/25 12:50 02/04/25 12:53 02/04/25 13:31 Temperature 97.4 F L Temperature Source Temporal Pulse Rate 89 87 Respiratory Rate 18 20 H Respiratory Effort Normal Non-Labored Respiratory Depth Normal Respiratory Pattern Normal Normal Blood Pressure 122/39 H Blood Pressure Mean 66 Blood Pressure Source Monitor Blood Pressure Position Semi-Fowlers Blood Pressure Location Right Forearm Pulse Ox 95 Oxygen Delivery Method Nasal Cannula Nasal Cannula Oxygen Flow Rate (L/min) 4 4 02/04/25 13:31 02/04/25 13:31 02/04/25 18:05 Temperature 97.7 F L Temperature Source Temporal Pulse Rate 96 Respiratory Rate 18 Respiratory Effort Normal Non-Labored Respiratory Depth Normal Respiratory Pattern Normal Blood Pressure 132/59 H Blood Pressure Mean 83 Blood Pressure Source Monitor Blood Pressure Position Sitting Blood Pressure Location Right Arm Pulse Ox 99 98 Oxygen Delivery Method Nasal Cannula Nasal Cannula Nasal Cannula Oxygen Flow Rate (L/min) 4 4 4 Weight Weight: 71.214 kg Body Mass Index (BMI) 27.8 Physical Exam Const alert, oriented x3 and no apparent distress General Appearance: cooperative, well kempt and well developed Orientation / Consciousness: awake, oriented to person, oriented to place and oriented to time HEENT normocephalic, head/scalp atraumatic and moist oral mucous membranes Eyes PERRL, EOMs intact bilaterally and conjunctivae normal Neck supple, no JVD and thyroid normal General: trachea midline Resp normal respiratory effort, no retractions and no use of accessory muscles Resp Narrative: Fine rales are noted at the bases bilaterally Auscultation: Negative for rales, rhonchi or wheezes Cardio regular rate, regular rhythm, S1 normal heart sound, S2 normal heart sound, no murmurs, no rub and no gallops GI normal to inspection, nondistended, normoactive bowel sounds, soft to palpation, non-tender and non-distended Extremity no clubbing, cyanosis or edema Skin no rashes or lesions noted General Skin Exam: no breakdown Neuro oriented x3, CN's II-XII intact bilaterally, moves all extremities, no focal motor deficits and no sensory deficits noted Sensorium / Orientation: awake and alert Speech: speech normal Psych affect normal Results Lab / Micro Data 02/04/25 06:50 02/05/25 04:37 Labs: Laboratory Results - last 24 hr 02/04/25 06:50: WBC 11.2 H, RBC 3.84 L, Hgb 10.7 L, Hct 34.1 L, MCV 88.8, MCH 27.9, MCHC 31.4 L, RDW Std Deviation 51.4 H, RDW Coeff of Vijay 15.9 H, Plt Count 185, MPV 11.3, Immature Gran % (Auto) 0.400, Neut % (Auto) 75.4 H, Lymph % (Auto) 15.7 L, Travis % (Auto) 6.6, Eos % (Auto) 1.7, Baso % (Auto) 0.2, Absolute Neuts (auto) 8.4 H, Absolute Lymphs (auto) 1.75, Nucleated RBC % 0, Sodium 137, Potassium 3.9, Chloride 95 L, Carbon Dioxide 25.9, Anion Gap 16 H, BUN 15, Creatinine 1.14, Estim Creat Clear Calc 37.95 L, Est GFR (MDRD) Non-Af 48 L, BUN/Creatinine Ratio 13.2, Glucose 132 H, Calcium 8.9, Troponin T High Sens 139 H* D, NT pro BNP II 6247 H 02/04/25 08:35: Troponin T Hi Sens 2 Hr 133 H* 02/04/25 10:49: Troponin T Hi Sens 4Hr 139 H* 02/04/25 17:32: POC Glucose 240 H Rhythm Strip Rhythm Strip: Sinus Rhythm Rate: 90 Ectopy: None Imaging Radiology Impression Chest X-Ray 02/04/25 07:10 IMPRESSION: See above Reading Location: [facility] Chest CTA 02/04/25 08:20 IMPRESSION: 1. No evidence of pulmonary embolism or acute findings in the thorax. 2. Bibasilar atelectasis. 3. Other findings as detailed above. Reading Location: [facility] Assessment & Plan Assessment/Plan (1) COPD with exacerbation: PLAN: Plan 1. Acute exacerbation of COPD-patient will be admitted to PCU and will receive aerosol treatments and IV Solu-Medrol, I do not believe the patient needs any antibiotics #2 acute on chronic congestive heart failure with reduced ejection fraction-patient will receive IV Lasix #3 hypoxia secondary to #1 and #2-will monitor patient on pulse oximetry, supplemental oxygen will be delivered as indicated #4 ischemic cardiomyopathy-complicates care, management, recovery, and prognosis #5 type 2 diabetes-blood sugars will be monitored, sliding scale insulin will be administered as needed #6 essential hypertension-patient will remain on her home medications Total clinical time spent by myself addressing the patient's medical issues, reviewing all her data, and collaborating with patient's care team: 75 minutes Charges/Coding Visit Charges Inpatient E&M: 71068 Init Hosp L3
[2025-02-04] MEDS: Insulin Glargine-YFGN 100 UNIT/ML Pen 20 UNIT SC (21:30)
[2025-02-04] MEDS: Heparin Injection (Vial) 5,000 UNIT/ML VIAL 5000 UNIT SC (21:31)
[2025-02-04] MEDS: Magnesium Chloride 64 MG Delay Rel.Tablet 128 MG PO (21:31)
[2025-02-04] MEDS: Insulin Lispro 100 UNIT/ML INSULN.PEN SC (21:31)
[2025-02-04] MEDS: Gabapentin 100 MG Capsule PO (21:31)
[2025-02-04] MEDS: Metoprolol Tartrate 25 MG Tablet PO (21:31)
[2025-02-04 21:57] LABS: Bedside Glucose 179 mg/dL (74-106)
[2025-02-05] VITALS (7 sets, daily range): BP systolic 110–147; BP diastolic 51–73; PULSE 75–88; RESP 14–20; TEMP 36.3–37; O2SAT 94–100
[2025-02-05 05:25] LABS: Anion Gap 15 (5-15); BUN 17 mg/dL (4-19); BUN/Creat Ratio 16.1 RATIO (10-20); Calcium,Total 9.1 mg/dL (7.6-11.0); Carbon Dioxide 26.4 mmol/L (21.0-32.0); Chloride 94 mmol/L (98-108); Creatinine, Serum 1.06 mg/dL (0.70-1.20); EST Glomerular Filtration Rate 53 (>60); Estimated Creatinine Clearance 39.38 ml/min (50-250); Glucose 272 mg/dL (70-99); Potassium 4.2 mmol/L (3.3-5.1); Sodium Level 135 mmol/L (133-145)
[2025-02-05] MEDS: 0.9% Saline Lock 10 ML Syringe IV ×3 (06:31→21:16)
[2025-02-05] MEDS: Furosemide 20 MG/2 ML VIAL IV ×3 (06:31→21:16)
[2025-02-05] MEDS: Ipratropium/Albuterol Sulfate 3 ML AMPUL.NEB INHALATION ×2 (07:32→21:14)
[2025-02-05] MEDS: Insulin Lispro 100 UNIT/ML INSULN.PEN 10 UNIT SC ×3 (07:51→16:51)
[2025-02-05] MEDS: Aspirin 81 MG TAB.CHEW PO (07:52)
[2025-02-05] MEDS: Insulin Lispro 100 UNIT/ML INSULN.PEN SC ×3 (07:52→21:17)
[2025-02-05 08:18] LABS: Bedside Glucose 238 mg/dL (74-106)
[2025-02-05] MEDS: SACUBITRIL/VALSARTAN 24/26 MG TABLET 1 EACH PO ×2 (10:14→21:17)
[2025-02-05] MEDS: dilTIAZem CD 180 MG Capsule PO (10:14)
[2025-02-05] MEDS: Empagliflozin 10 MG Tablet PO (10:15)
[2025-02-05] MEDS: Insulin Glargine-YFGN 100 UNIT/ML Pen 20 UNIT SC ×2 (10:15→21:17)
[2025-02-05] MEDS: Heparin Injection (Vial) 5,000 UNIT/ML VIAL 5000 UNIT SC ×2 (10:15→21:16)
[2025-02-05] MEDS: Magnesium Chloride 64 MG Delay Rel.Tablet 128 MG PO ×2 (10:16→21:17)
[2025-02-05] MEDS: Metoprolol Tartrate 25 MG Tablet PO ×2 (10:16→21:18)
[2025-02-05] MEDS: Pravastatin 20 MG Tablet PO (10:16)
[2025-02-05] MEDS: Cyanocobalamin 500 MCG Tablet 1000 MCG PO (10:17)
[2025-02-05] MEDS: Pantoprazole Sodium 40 MG Tablet PO (10:17)
[2025-02-05] MEDS: Latanoprost 0.005% 1 Bottle 1 DRP EACH EYE (11:56)
[2025-02-05 11:57] LABS: Bedside Glucose 296 mg/dL (74-106)
--- NOTE | 2025-02-05 14:42 | PN.HOSP_ITS ---
Subjective Subjective Patient was seen and examined today, she states she feels much better today. Patient is currently on room air. Objective Data Objective Data Vital Signs: Vital Signs Temp Pulse Resp BP Pulse Ox O2 Del Method O2 Flow Rate 97.3 F L 88 14 121/56 H 100 Room Air 3 02/05/25 10:09 02/05/25 10:16 02/05/25 10:09 02/05/25 10:09 02/05/25 10:09 02/05/25 10:09 02/05/25 07:33 Oxygen Flow Rate (L/min) 3 Oxygen Delivery Method Room Air Weight: 71.214 kg Body Mass Index (BMI) 27.8 Intake & Output: Intake and Output for Last 24 Hours 02/03/25 02/04/25 02/05/25 23:59 23:59 23:59 Intake Total 240 / 360 360 / 360 Balance 240 / 360 360 / 360 Lab / Micro Data 02/04/25 06:50 02/05/25 04:37 Labs: Laboratory Results - last 24 hr 02/04/25 17:32: POC Glucose 240 H 02/04/25 21:29: POC Glucose 179 H 02/05/25 04:37: Sodium 135, Potassium 4.2, Chloride 94 L, Carbon Dioxide 26.4, Anion Gap 15, BUN 17, Creatinine 1.06, Estim Creat Clear Calc 39.38 L, Est GFR (MDRD) Non-Af 53 L, BUN/Creatinine Ratio 16.1, Glucose 272 H, Calcium 9.1 02/05/25 07:50: POC Glucose 238 H 02/05/25 11:26: POC Glucose 296 H Rhythm Strip Rhythm Strip: Sinus Rhythm Rate: 90 Ectopy: None Physical Exam Const alert, oriented x3 and no apparent distress General Appearance: cooperative, well kempt and well developed Orientation / Consciousness: awake, oriented to person, oriented to place and oriented to time HEENT normocephalic, head/scalp atraumatic and moist oral mucous membranes Eyes PERRL, EOMs intact bilaterally and conjunctivae normal Neck supple, no JVD, thyroid normal and no carotid bruits General: trachea midline Resp normal respiratory effort, no retractions and no use of accessory muscles Resp Narrative: Mild inspiratory rales at the left base is noted Auscultation: rales left base; Negative for rhonchi or wheezes Cardio regular rate, regular rhythm, S1 normal heart sound, S2 normal heart sound, no murmurs, no rub and no gallops GI normal to inspection, nondistended, normoactive bowel sounds, soft to palpation, non-tender and non-distended Extremity normal to inspection and no clubbing, cyanosis or edema Skin no rashes or lesions noted General Skin Exam: no breakdown Neuro oriented x3, CN's II-XII intact bilaterally, moves all extremities, no focal motor deficits and no sensory deficits noted Sensorium / Orientation: awake and alert Speech: speech normal Psych affect normal Assessment & Plan Assessment/Plan (1) COPD with exacerbation: PLAN: Plan 1. Exacerbation of COPD-patient will remain on aerosol treatments and IV Solu- Medrol, pulse ox will be monitored #2 acute exacerbation of congestive heart failure with reduced ejection fraction-patient remains on IV Lasix #3 demand ischemia-I do not believe the patient has had an TN #4 type 2 diabetes-blood sugars will be monitored, sliding scale insulin will be administered as well as basal insulin and insulin with meals #5 hyperlipidemia-patient is on Pravachol #6 ischemic cardiomyopathy-patient will remain on her current medication Total clinical time spent by myself addressing the patient's medical issues, reviewing all of her data, and collaborating with patient's care team: 35 minutes Charges/Coding Visit Charges Inpatient E&M: 30342 Subs Hosp L2
[2025-02-05 17:11] LABS: Bedside Glucose 128 mg/dL (74-106)
[2025-02-05] MEDS: Acetaminophen 325 MG Tablet 650 MG PO (21:14)
[2025-02-05] MEDS: Gabapentin 100 MG Capsule PO (21:14)
[2025-02-05 21:46] LABS: Bedside Glucose 156 mg/dL (74-106)
[2025-02-06] VITALS (8 sets, daily range): BP systolic 106–117; BP diastolic 48–81; PULSE 72–85; RESP 16–18; TEMP 36.2–36.5; O2SAT 93–99
[2025-02-06] MEDS: Furosemide 20 MG/2 ML VIAL IV ×2 (05:54→14:03)
[2025-02-06] MEDS: Acetaminophen 325 MG Tablet 650 MG PO (05:54)
[2025-02-06] MEDS: 0.9% Saline Lock 10 ML Syringe IV (05:54)
[2025-02-06] MEDS: Ipratropium/Albuterol Sulfate 3 ML AMPUL.NEB INHALATION ×2 (07:33→13:04)
[2025-02-06 08:16] LABS: Bedside Glucose 237 mg/dL (74-106)
[2025-02-06] MEDS: Insulin Lispro 100 UNIT/ML INSULN.PEN 10 UNIT SC ×2 (08:31→12:40)
[2025-02-06] MEDS: Insulin Lispro 100 UNIT/ML INSULN.PEN SC ×2 (08:32→12:40)
[2025-02-06] MEDS: Cyanocobalamin 500 MCG Tablet 1000 MCG PO (08:33)
[2025-02-06] MEDS: Aspirin 81 MG TAB.CHEW PO (08:33)
[2025-02-06] MEDS: dilTIAZem CD 180 MG Capsule PO (10:23)
[2025-02-06] MEDS: Magnesium Chloride 64 MG Delay Rel.Tablet 128 MG PO (10:24)
[2025-02-06] MEDS: Insulin Glargine-YFGN 100 UNIT/ML Pen 20 UNIT SC (10:24)
[2025-02-06] MEDS: Empagliflozin 10 MG Tablet PO (10:24)
[2025-02-06] MEDS: SACUBITRIL/VALSARTAN 24/26 MG TABLET 1 EACH PO (10:24)
[2025-02-06] MEDS: Pantoprazole Sodium 40 MG Tablet PO (10:25)
[2025-02-06] MEDS: Metoprolol Tartrate 25 MG Tablet PO (10:25)
[2025-02-06] MEDS: Heparin Injection (Vial) 5,000 UNIT/ML VIAL 5000 UNIT SC (10:25)
[2025-02-06] MEDS: Pravastatin 20 MG Tablet PO (10:25)
--- NOTE | 2025-02-06 12:26 | CASEMGMT ---
SHAWANDA BURROUGHS Readmission Note: Pt was admitted through the ED on 01/20/2025 with complaint of shortness of breath for 5 days prior to admission. Shortness of breath worsened with exertion. She had recently completed a course of steroids and antibiotics after presenting to the ED with similar complaints. Patient was discharged home on 01/24/2025 on p.o. Lasix 40 mg twice daily with potassium supplementation. She was also discharged on Entresto and metoprolol as well as Jardiance. She was discharged with a prescription for p.o. levofloxacin 750 mg daily x 2 tablets to complete the course of antibiotics. She was also discharged on PO prednisone 40mg daily x 5 days. She is to follow up with her PCP within 1-2 weeks. She is also to follow up with cardiology within 1-2 weeks to be evaluated to schedule the cardiac cath on outpatient basis. Pt was set up with [facility] for SN, PT and OT. Pt came back to [facility] ED on 02/04/25 with complaint of Shortness of Breath. SHAWANDA BURROUGHS into pt room, Pt sitting up in chair in no distress. Pt states she has a follow up appointment with PCP scheduled for tomorrow, 02/07/25. Pt states she was taking new medications as ordered, she has DME at home and denies any DC needs. SHAWANDA BURROUGHS discussed continuation of HHC. Pt would like to continue SN, PT and OT with [facility], denies wanting a list of HHC agencies. Per RN, pt home O2 Test did not qualify for oxygen. Hospitalist would like Pt to get nebulizer. SHAWANDA BURROUGHS discussed local DME providers, Pt chose [facility] as provider of choice. Obtained script and sent to [facility]. Per Davion, will deliver to pt room. SHAWANDA BURROUGHS called [facility], able to continue with HH services. Resumption of care to start 02/07/25. Updated DC Plan.
[2025-02-06 13:08] LABS: Bedside Glucose 190 mg/dL (74-106)
--- NOTE | 2025-02-06 13:51 | DCINST_ITS ---
Discharge Instructions Diet Discharge Diet: 1800 Calorie Control Diet DC O2, CPAP, BIPAP needs Home O2 Discharge instructions: No Dressing / Incision Discharge Activity: Return to Normal Activity Weight Bearing Status: Full weight bearing Follow Up Care Test Results: Test results from this visit will be discussed in further detail at your follow- up appointment, if applicable. Discharge Plan Admission Admit Date/Time: 02/04/25 10:52 Primary Reason for Your Visit: Exacerbation of COPD Attending Provider: Lucio Borden Primary Care Provider: Ramone Smiley Discharge Orders/Prescriptions Prescriptions: New ipratropium-albuterol 0.5 mg-3 mg(2.5 mg base)/3 mL Solution For Nebulization 3 ml inhalation Q6H.RT Qty: 120 0RF prednisone 10 mg tablet 10 mg PO BID Qty: 20 0RF furosemide [Lasix] 20 mg tablet 60 mg PO BID Qty: 180 0RF Continued Januvia 50 mg tablet 50 mg PO DAILY Jardiance 10 mg tablet 10 mg PO DAILY multivitamin Tablet 1 tab PO DAILY pravastatin 20 mg tablet 20 mg PO DAILY aspirin 81 MG tablet,chewable 81 mg PO DAILY metoprolol tartrate 25 MG tablet 25 mg PO BID magnesium oxide 400 MG tablet 400 mg PO BID pantoprazole 40 MG tablet 40 mg PO DAILY gabapentin 100 mg capsule 100 mg PO QHS roflumilast 500 mcg tablet 500 mcg PO DAILY ascorbic acid (vitamin C) [Vitamin C] 250 mg tablet 250 mg PO DAILY insulin lispro [Humalog KwikPen Insulin] 100 unit/mL Insulin Pen 10 unit subcut TIDAC Rx Instructions: Hold if glucose less than 120 mg/dl Mounjaro 5 mg/0.5 mL pen injector 5 mg subcut QWEEK Patient Comments: PT STATES SHE SOMETIMES TAKES IT ON THURSDAY, SOMETIMES ON FRIDAYS. menthol-zinc oxide [CalaSoothe] 0.44-20.6 % ointment 1 applic topical 4X/DAY PRN (Reason: skin irritation) psyllium husk [Daily Fiber] 0.4 gram capsule 0.4 g PO DAILY mecobalamin (vitamin B12) [B12 Active] 1,000 mcg tablet,chewable 1,000 mcg PO DAILY azelastine 137 mcg (0.1 %) spray,non-aerosol 1 - 2 spray INTRANASAL BID acetaminophen 500 mg Tablet 1,000 mg PO Q6H PRN (Reason: Pain Score 1-3) Rocklatan 0.02-0.005 % Drops 1 drp EACH EYE DAILY potassium chloride [K-Tab] 20 mEq tablet extended release 20 meq PO BID diltiazem HCl 180 mg capsule,ext.rel 24h degradable 180 mg PO DAILY ipratropium bromide 21 mcg (0.03 %) spray,non-aerosol 1 - 2 spray INTRANASAL Q6H PRN (Reason: allergy symptoms) insulin glargine [Lantus Solostar U-100 Insulin] 100 unit/mL (3 mL) insulin pen 20 unit subcut BID (DME) lancets [TRUEplus Lancets] 28 gauge misc MISCELLANEOUS Breztri Aerosphere 160-9-4.8 mcg/actuation HFA aerosol inhaler 2 inh inhalation BID Discontinued furosemide 40 mg Tablet 40 mg PO BIDLX Qty: 60 2RF Referrals / Follow Up: Ramone Smiley MD [Primary Care Provider] - In 1 Week Disposition Disposition (needs filled in before D/C Order can be placed): Home, Self Care
--- NOTE | 2025-02-06 14:01 | PCM.DC.SUM ---
Providers Date of Admission: 02/04/25 Date of Discharge: 02/06/25 Primary Care Physician: Dr. Ramone Smiley MD Reason For Visit: HYPOXIA, EXACERBATION OF COPD Diagnosis Discharge Diagnosis (1) COPD with exacerbation: Status: Inactive Code(s): J44.1 - Chronic obstructive pulmonary disease with (acute) exacerbation Plan 1. Exacerbation of COPD-patient will remain on aerosol treatments and IV Solu-Medrol, pulse ox will be monitored #2 acute exacerbation of congestive heart failure with reduced ejection fraction-patient remains on IV Lasix #3 demand ischemia-I do not believe the patient has had an AL #4 type 2 diabetes-blood sugars will be monitored, sliding scale insulin will be administered as well as basal insulin and insulin with meals #5 hyperlipidemia-patient is on Pravachol #6 ischemic cardiomyopathy-patient will remain on her current medication Total clinical time spent by myself addressing the patient's medical issues, reviewing all of her data, and collaborating with patient's care team: 35 minutes Medications at Discharge Home Medications aspirin 81 mg chewable tablet 81 mg PO DAILY [facility] 01/21/16 magnesium oxide 400 mg (241.3 mg magnesium) tablet 400 mg PO BID SUPPLEMENT 08/16/18 metoprolol tartrate 25 mg tablet 25 mg PO BID BLOOD PRESSURE 08/16/18 pantoprazole 40 mg tablet,delayed release 40 mg PO DAILY ACID REFLUX 12/02/19 empagliflozin 10 mg tablet (Jardiance) 10 mg PO DAILY DIABETES 10/18/20 sitagliptin phosphate 50 mg tablet (Januvia) 50 mg PO DAILY DIABETES 10/18/20 multivitamin 1 tab PO DAILY VITAMIN 12/06/21 pravastatin 20 mg tablet 20 mg PO DAILY CHOLESTEROL 12/06/21 ascorbic acid (vitamin C) 250 mg tablet (Vitamin C) 250 mg PO DAILY SUPPLEMENT 08/13/23 gabapentin 100 mg capsule 100 mg PO QHS NERVE PAIN 08/13/23 roflumilast 500 mcg tablet 500 mcg PO DAILY COPD 08/13/23 insulin lispro 100 unit/mL subcutaneous pen (Humalog KwikPen (U-100) Insulin) 10 unit subcut TIDAC short acting insulin 12/30/23 budesonide 160 mcg-glycopyr 9 mcg-formot 4.8 mcg/actuation HFA inhaler (Breztri Aerosphere) 2 inh inhalation BID breathing 01/07/25 diltiazem HCl 180 mg capsule,extended release 24 hr, controlled 180 mg PO DAILY heart 01/07/25 insulin glargine 100 unit/mL (3 mL) subcutaneous pen (Lantus Solostar U-100 Insulin) 20 unit subcut BID diabetes 01/07/25 ipratropium bromide 21 mcg (0.03 %) nasal spray 1 - 2 spray intranasal Q6H PRN allergy symptoms 01/07/25 lancets 28 gauge (TRUEplus Lancets) 01/07/25 acetaminophen 500 mg tablet 1,000 mg PO Q6H PRN Pain Score 1-3 01/15/25 azelastine 137 mcg (0.1 %) nasal spray 1 - 2 spray intranasal BID nasal spray 01/15/25 mecobalamin (vitamin B12) 1,000 mcg chewable tablet (B12 Active) 1,000 mcg PO DAILY health maintenance 01/15/25 menthol 0.44 %-zinc oxide 20.6 % topical ointment (CalaSoothe) 1 applic topical 4X/DAY PRN skin irritation 01/15/25 netarsudil 0.02 %-latanoprost 0.005 % eye drops [facility] 1 drp EACH EYE DAILY eye drops 01/15/25 psyllium husk 0.4 gram capsule (Daily Fiber) 0.4 g PO DAILY constipation 01/15/25 tirzepatide 5 mg/0.5 mL subcutaneous pen injector (Mounjaro) 5 mg subcut QWEEK diabetes 01/15/25 potassium chloride 20 mEq tablet,extended release (K-Tab) 20 meq PO BID supplement 02/04/25 furosemide 20 mg tablet (Lasix) 60 mg (3 x 20 mg) PO BID #180 tabs 02/06/25 ipratropium 0.5 mg-albuterol 3 mg (2.5 mg base)/3 mL nebulization soln 3 ml inhalation Q6H.RT #120 amps 02/06/25 prednisone 10 mg tablet 10 mg PO BID #20 tabs 02/06/25 sacubitril 24 mg-valsartan 26 mg tablet (Entresto) 1 tab PO BID #60 tabs 02/07/25 Hospital Course Operations None Procedures None Summary of Care Provided Minutes Spent on Discharge: 32 Hospital Course: This 80-year-old black female seen in the emergency room at [facility] with complaints of shortness of breath. Workup in the emergency room included chest x-rays showed no evidence of pneumonia or congestive heart failure, on examination, patient had decreased breath sounds and required supplemental oxygen to maintain her pulse ox above 90%. Patient's beta nitric peptide was elevated. Patient was admitted to PCU for acute on chronic congestive heart failure with reduced ejection fraction and COPD exacerbation, she was treated with IV Solu-Medrol, aerosol treatments, and IV Lasix. Supplemental oxygen was weaned, eventually the patient's oxygen was weaned off entirely. On 02/06/2025, patient was seen and examined: On examination she appeared in good health and spirits, she does not appear to be in any distress. Vital signs as documented. Skin warm and dry and without overt rashes. Neck without JVD, thyroid appears normal, trachea is midline, neck is supple. Lungs clear, normal air movement was noted. Heart exam notable for regular rhythm, normal sounds and absence of murmurs, rubs or gallops. Abdomen unremarkable and without evidence of organomegaly, masses, or abdominal aortic enlargement, bowel sounds are present in all 4 quadrants, no abdominal tenderness was noted. Extremities nonedematous, no cyanosis was noted, no clubbing was noted. Neuro: Cranial nerves II through XII are grossly intact, no focal motor deficits were noted, sensation to light touch and pinprick is intact, motor exam 5/5 throughout. Psych: Patient is alert and oriented x3, she does not appear anxious or depressed, she does not appear agitated. Patient was discharged home in stable condition on 02/06/2025 Weight / BMI Weight Weight: 71.214 kg Body Mass Index (BMI) 27.8 ABG / Lab / Microbiology Data 02/04/25 06:50 02/05/25 04:37 Laboratory: Laboratory Results - last 24 hr 02/05/25 16:49: POC Glucose 128 H 02/05/25 21:15: POC Glucose 156 H 02/06/25 07:54: POC Glucose 237 H 02/06/25 12:36: POC Glucose 190 H D/C Instructions Discharge Diet: 1800 Calorie Control Diet Weight Bearing Status: Full weight bearing DC O2, CPAP, BIPAP Needs Home O2 Discharge instructions: No Meaningful Use Info Meaningful Use Meaningful Use Diagnoses (Choose all that apply): CHF CHF ALBA/ARB ordered at discharge?: No Reason ALBA/ARB not ordered?: Worsening renal disease Documented LVEF (%): 35 Ischemic Stroke Statin Dosing Therapy Reference: STATIN DOSE THERAPY REFERENCE: * Patients > 75 years receive moderate or high dose statin therapy. * Patients 75 years or YOUNGER should receive HIGH intensity statin dose unless contraindicated. You will be required to document reason for non-treatment if statin daily dose does not meet guidelines. HIGH DOSE STATIN THERAPY DAILY Atorvastatin > than or = to 40 mg Rosuvastatin > than or = to 20 mg Amlodipine + Atorvastatin > than or = to 2.5/40 mg Ezetimibe + Simvastatin 10/80 mg Simvastatin 80mg Discharge Plan Admission Admit Date/Time: 02/04/25 10:52 Primary Reason for Your Visit: Exacerbation of COPD Attending Provider: Lucio Borden Primary Care Provider: Ramone Smiley Discharge Orders/Prescriptions Prescriptions: New ipratropium-albuterol 0.5 mg-3 mg(2.5 mg base)/3 mL Solution For Nebulization 3 ml inhalation Q6H.RT Qty: 120 0RF prednisone 10 mg tablet 10 mg PO BID Qty: 20 0RF furosemide [Lasix] 20 mg tablet 60 mg PO BID Qty: 180 0RF Continued Januvia 50 mg tablet 50 mg PO DAILY Jardiance 10 mg tablet 10 mg PO DAILY multivitamin Tablet 1 tab PO DAILY pravastatin 20 mg tablet 20 mg PO DAILY aspirin 81 MG tablet,chewable 81 mg PO DAILY metoprolol tartrate 25 MG tablet 25 mg PO BID magnesium oxide 400 MG tablet 400 mg PO BID pantoprazole 40 MG tablet 40 mg PO DAILY gabapentin 100 mg capsule 100 mg PO QHS roflumilast 500 mcg tablet 500 mcg PO DAILY ascorbic acid (vitamin C) [Vitamin C] 250 mg tablet 250 mg PO DAILY insulin lispro [Humalog KwikPen Insulin] 100 unit/mL Insulin Pen 10 unit subcut TIDAC Rx Instructions: Hold if glucose less than 120 mg/dl Mounjaro 5 mg/0.5 mL pen injector 5 mg subcut QWEEK Patient Comments: PT STATES SHE SOMETIMES TAKES IT ON THURSDAY, SOMETIMES ON FRIDAYS. menthol-zinc oxide [CalaSoothe] 0.44-20.6 % ointment 1 applic topical 4X/DAY PRN (Reason: skin irritation) psyllium husk [Daily Fiber] 0.4 gram capsule 0.4 g PO DAILY mecobalamin (vitamin B12) [B12 Active] 1,000 mcg tablet,chewable 1,000 mcg PO DAILY azelastine 137 mcg (0.1 %) spray,non-aerosol 1 - 2 spray INTRANASAL BID acetaminophen 500 mg Tablet 1,000 mg PO Q6H PRN (Reason: Pain Score 1-3) Rocklatan 0.02-0.005 % Drops 1 drp EACH EYE DAILY potassium chloride [K-Tab] 20 mEq tablet extended release 20 meq PO BID diltiazem HCl 180 mg capsule,ext.rel 24h degradable 180 mg PO DAILY ipratropium bromide 21 mcg (0.03 %) spray,non-aerosol 1 - 2 spray INTRANASAL Q6H PRN (Reason: allergy symptoms) insulin glargine [Lantus Solostar U-100 Insulin] 100 unit/mL (3 mL) insulin pen 20 unit subcut BID (DME) lancets [TRUEplus Lancets] 28 gauge misc MISCELLANEOUS Breztri Aerosphere 160-9-4.8 mcg/actuation HFA aerosol inhaler 2 inh inhalation BID Discontinued furosemide 40 mg Tablet 40 mg PO BIDLX Qty: 60 2RF No Action Entresto 24-26 mg tablet 1 tab PO BID Qty: 60 11RF Referrals / Follow Up: Ramone Smiley MD [Primary Care Provider] - In 1 Week Disposition Disposition (needs filled in before D/C Order can be placed): Home Health Service Charges/Coding Visit Charges Inpatient E&M: 41972 Disch Hosp >30min
--- NOTE | 2025-02-06 16:02 | CHAPLAIN ---
Type of Pastoral Visit _x__ Initial Visit ___ Follow-up Visit ___ On-call Visit ___ General Patient Visit ___ Spiritual Assessment ___ Family Conference ___ Bereavement ___ Rapid Response ___ Code Blue ___ Other (describe below) Pastoral Care Referral From _x__ Patient ___ Family ___ Nurse ___ Physician ___ Sales Clerk ___ Interventional Technologist ___ Other (describe below) Sacrament/Intervention _x__ Active listening ___ Anointing ___ Jewish ___ Bereavement ___ Communion ___ Kristal exploration ___ ___ Life review _x__ Prayer ___ Reconciliation ___ Sacrament of Sick ___ Supportive presence ___ Wedding ___ Other (describe below) Pastoral Comments patient was seen just recently in a previous admission; pt is noticeably better and is breathing on her own without effort; pt acknowledges much better situation than before and gives much credit to God who was right there with me all the time and heard my cries for help; pt has been telling others in her extended family about her experience with God's help and plans to 'return to adventism as soon as I can'; pt does not have family locally but stays in touch with extended family around the [place]; pt welcomes presence and prayer
== END 2025-02-06 15:53 | disposition home health service (06) | DRG 291 ==
LOC: ED 11:12 → PCU 11:55
PROVIDERS: Admitting Provider Internal Medicine; Emergency Provider Emergency Medicine; PCP Family Medicine; Visit Provider Internal Medicine
DX: I13.0 Hypertensive heart and chronic kidney disease with heart failure and stage 1 through stage 4 chronic kidney disease, or unspecified chronic kidney disease (principal); I50.21 Acute systolic (congestive) heart failure; I24.89 Other forms of acute ischemic heart disease; J44.1 Chronic obstructive pulmonary disease with (acute) exacerbation; E11.22 Type 2 diabetes mellitus with diabetic chronic kidney disease; N18.30 Chronic kidney disease, stage 3 unspecified; Z79.4 Long term (current) use of insulin; I25.5 Ischemic cardiomyopathy; K21.9 Gastro-esophageal reflux disease without esophagitis; E78.5 Hyperlipidemia, unspecified; I25.10 Atherosclerotic heart disease of native coronary artery without angina pectoris; Z87.891 Personal history of nicotine dependence; Z79.84 Long term (current) use of oral hypoglycemic drugs; Z79.85 Long-term (current) use of injectable non-insulin antidiabetic drugs; Z79.02 Long term (current) use of antithrombotics/antiplatelets; Z91.040 Latex allergy status; Z88.8 Allergy status to other drugs, medicaments and biological substances; Z96.642 Presence of left artificial hip joint; Z79.82 Long term (current) use of aspirin; Z79.52 Long term (current) use of systemic steroids
CPT/HCPCS: 36415; 71046; 71275; 80048; 82962; 83880; 84484; 85025; 93005; 94640; 99252; 99285; Q9967; A4216; G0463; J1938

== ENCOUNTER → 2025-02-07 | Outpatient (CLI) | payer MEDICARE, SELFPAY ==
[2025-02-07 20:04] LABS: Absolute Lymphocyte Count 0.84 X10^3/uL (0.83-4.51); Basophil# 0.01 X10^3/uL; Basophil% 0.1 % (0-1); Hematocrit 36.8 % (37-47); Hemoglobin 11.4 g/dL (12.0-15.0); Lymphocyte # 0.84 X10^3/ul (0.83-4.51); Lymphocyte % 7.3 % (19-41); Mean Corpuscular Hgb 27.9 pg (27.0-32.0); Mean Corpuscular Volume 90.2 fL (81-99); Mean Platelet Vol. 11.5 fl (6.2-12.0); Monocyte% 5.2 % (0-10); NRBC Flagged by Analyzer 0 % (0-5); Neutrophil # 10.02 X10^3/uL (2.7-7.7); Platelet Count 247 K/mm3 (150-450); RBC Distribution Width CV 15.7 % (11.6-14.6); RBC Distribution Width SD 51.8 fl (35.1-43.9); Red Blood Count 4.08 M/mm3 (4.2-5.4); White Blood Count 11.5 K/mm3 (4.4-11.0)
[2025-02-07 20:29] LABS: AST(SGOT) 29 U/L (<=31); Alanine Aminotransfer ALT/SGPT 20 U/L (<=34); Albumin, Serum 3.3 g/dL (3.4-4.8); Alkaline Phosphatase 86 U/L (35-104); Anion Gap 12 (5-15); BUN 24 mg/dL (4-19); BUN/Creat Ratio 17.7 RATIO (10-20); Calcium,Total 10.2 mg/dL (7.6-11.0); Carbon Dioxide 27.9 mmol/L (21.0-32.0); Chloride 96 mmol/L (98-108); Creatinine, Serum 1.37 mg/dL (0.70-1.20); EST Glomerular Filtration Rate 39 (>60); Globulin 3.2 g/dL (2.2-4.2); Glucose 254 mg/dL (70-99); Potassium 5.1 mmol/L (3.3-5.1); Protein, Total 6.5 g/dL (5.9-8.4); Sodium Level 136 mmol/L (133-145); Total Bilirubin 0.25 mg/dL (0.00-1.30)
== END | disposition home or self-care (01) ==
LOC: MFPLAB 17:08
PROVIDERS: PCP Family Medicine; Referring Provider Family Medicine; Visit Provider Family Medicine
DX: I50.9 Heart failure, unspecified (principal); E11.49 Type 2 diabetes mellitus with other diabetic neurological complication
CPT/HCPCS: 36415; 80053; 85025

== ENCOUNTER 2025-02-09 11:50 | Inpatient (IN) | payer MEDICARE, SELFPAY ==
[2025-02-09] VITALS (18 sets, daily range): BP systolic 103–152; BP diastolic 46–78; PULSE 84–110; RESP 16–30; TEMP 36.4–37.2; O2SAT 87–100; BMI 30.1; BMI 29.9
--- NOTE | 2025-02-09 12:18 | RAD_ITS ---
PROCEDURE: CHEST PA AND LATERAL 02/09/2025 REASON FOR EXAM: CHEST PAIN TECHNIQUE: Frontal and lateral views of the chest. COMPARISON: Prior study dated February 04, 2025. FINDINGS: Hardware: EKG electrodes are seen. Heart: Moderate cardiomegaly. Mediastinum: The mediastinal contour is unremarkable. Lungs: Mild degree of bibasilar linear atelectasis. Bones: Degenerative changes are identified within the thoracic spine. RAD/Chest PA and Lateral IMPRESSION: Cardiomegaly. Mild degree of bibasilar linear atelectasis. Reading Location: [facility]
--- NOTE | 2025-02-09 12:19 | EDS_ITS ---
HPI History of Present Illness Chief Complaint: Shortness of Breath Informant: patient Onset/Context/Timing Onset: Days Context: gradual Timing: Continuous Quality: Positive for Wheezing Current Severity: Moderate Maximum Severity: Moderate Worsened by: Exertion Relieved by: Oxygen and Albuterol Associated Symptoms cough Chest Pain: Positive for None Narrative Narrative: 80-year-old female history of COPD, CAD, anemia, diabetes. She lives at home. Does not have home O2 but does have inhaler and nebulizer. Said humidity in the house today due to the current weather and not having air conditioning made her shortness of breath worse. Wheezing and does not feel like she can take a deep breath. Nonproductive cough. No fever. No chills. No chest pain. No hemoptysis. No leg pain or swelling. No history of heart attack or stents. No prior DVT or PE. Denies any melena. Was recently hospitalized for a COPD flare. PE Risk Factors: Negative for Cancer, OCP + Smoking + > 35, Prior DVT or PE, Recent surgery or Recent travel Prior similar symptoms: Yes Recent Illness/Hospitalization: Yes [facility] Medical History COPD with exacerbation Anemia History of COPD Elevated brain natriuretic peptide (BNP) level Elevated troponin Acute hypoxemic respiratory failure Elevated troponin Coronary artery disease Aortic stenosis Hypertension Obesity (BMI 30.0-34.9) Lactic acidosis Fracture of hip, left, closed Paronychia of left index finger Vaginal cyst Anxiety Depression Irregular heart beat Multiple thyroid nodules Foraminal stenosis of lumbar region Lumbar spinal stenosis Diabetic retinopathy Colon polyp Thyroid goiter Hyperlipidemia Hypokalemia Microcytic anemia Neurogenic bladder Hypophosphatemia Hypercalcemia Former smoker UTI (urinary tract infection) Iron deficiency anemia Hyponatremia Urine retention Chronic renal failure, stage 3 (moderate) Cellulitis and abscess of finger, unspecified Retinopathy Peripheral artery disease Leg weakness, bilateral GERD (gastroesophageal reflux disease) Chronic idiopathic constipation COPD (chronic obstructive pulmonary disease) Polypharmacy Hypertension Carpal tunnel syndrome of right wrist Strain of right rotator cuff capsule Rhinitis Urinary retention with incomplete bladder emptying Vitamin D deficiency Asthma Pruritus Goiter, nontoxic, multinodular Anemia Diabetes Hx of venous thrombosis and embolism History of malignant neoplasm of breast Type 2 diabetes mellitus Home Medications ?Medication ?Instructions ?Recorded ?Last Taken ?Type aspirin 81 mg chewable tablet 81 mg PO DAILY [facility] 01/21/16 01/15/25 History magnesium oxide 400 mg (241.3 mg 400 mg PO BID SUPPLEM ENT 08/16/18 01/15/25 History magnesium) tablet metoprolol tartrate 25 mg tablet 25 mg PO BID BLOOD AK ESSURE 08/16/18 01/15/25 History pantoprazole 40 mg tablet,delayed 40 mg PO DAILY ACID REFLUX 12/02/19 01/15/25 History release empagliflozin 10 mg tablet 10 mg PO DAILY DIABETES 01/15/25 History (Jardiance) sitagliptin phosphate 50 mg tablet 50 mg PO DAILY DIAB ETES 10/18/20 01/15/25 History (Januvia) multivitamin 1 tab PO DAILY VITAMIN 12/0601/15/25 History pravastatin 20 mg tablet 20 mg PO DAILY CHOLESTEROL 0 12/06/21 01/15/25 History ascorbic acid (vitamin C) 250 mg 250 mg PO DAILY SUPPL EMENT 08/13/23 01/15/25 Hi story tablet (Vitamin C) gabapentin 100 mg capsule 100 mg PO QHS NERVE PAIN 01/14/25 History roflumilast 500 mcg tablet 500 mcg PO DAILY COPD 08/1301/15/25 History insulin lispro 100 unit/mL 10 unit subcut TIDAC short acting 12/30/23 01/15/25 History subcutaneous pen (Humalog KwikPen insulin (U-100) Insulin) budesonide 160 mcg-glycopyr 9 2 inh inhalation BID franklyn athing 01/07/25 01/15/25 History mcg-formot 4.8 mcg/actuation HFA inhaler (Breztri Aerosphere) diltiazem HCl 180 mg 180 mg PO DAILY heart 01/15/25 History capsule,extended release 24 hr, controlled insulin glargine 100 unit/mL (3 20 unit subcut BID marco a betes 01/07/25 01/15/25 History mL) subcutaneous pen (Lantus Solostar U-100 Insulin) ipratropium bromide 21 mcg (0.03 1 - 2 spray intranasa l Q6H PRN 01/07/25 Unknown History %) nasal spray allergy symptoms lancets 28 gauge (TRUEplus Lancets) 01/07/25 Unknown History acetaminophen 500 mg tablet 1,000 mg PO Q6H PRN Pain S core 1-3 01/15/25 Unknown History azelastine 137 mcg (0.1 %) nasal 1 - 2 spray intranasa l BID nasal 01/15/25 01/15/25 History spray spray mecobalamin (vitamin B12) 1,000 1,000 mcg PO DAILY hea lth 01/15/25 01/15/25 History mcg chewable tablet (B12 Active) maintenance menthol 0.44 %-zinc oxide 20.6 % 1 applic topical 4X/D AY PRN skin 01/15/25 Unknown History topical ointment (CalaSoothe) irritation netarsudil 0.02 %-latanoprost 1 drp EACH EYE DAILY eye drops 01/15/25 01/15/25 History 0.005 % eye drops (Rocklatan) psyllium husk 0.4 gram capsule 0.4 g PO DAILY constipa tion 01/15/25 01/15/25 History (Daily Fiber) tirzepatide 5 mg/0.5 mL 5 mg subcut QWEEK diabetes 0 01/15/25 Unknown History subcutaneous pen injector (Mounjaro) potassium chloride 20 mEq 20 meq PO BID supplement 03/24 Unknown History tablet,extended release (K-Tab) furosemide 20 mg tablet (Lasix) 60 mg (3 x 20 mg) PO B ID #180 tabs 02/06/25 Unknown Rx ipratropium 0.5 mg-albuterol 3 mg 3 ml inhalation Q6H. RT #120 amps 02/06/25 Unknown Rx (2.5 mg base)/3 mL nebulization soln prednisone 10 mg tablet 10 mg PO BID #20 tabs Unknown Rx sacubitril 24 mg-valsartan 26 mg 1 tab PO BID #60 tabs 02/07/25 Unknown Rx tablet (Entresto) Allergy/AdvReac Type Severity Reaction Status Date / Time adhesive tape (tape) Allergy NEEDS Verified 02/09/25 11:59 FOLLOW-UP cephalexin monohydrate (From Allergy Rash Verified 02/09/25 11:59 Keflex) clopidogrel bisulfate (From Allergy Other Verified 02/09/25 11:59 Plavix) amoxicillin AdvReac YEAST Verified 02/09/25 11:59 INFECTION Family History Daughter Breast cancer Father Hypertension Sister Cancer Kidney disease Mother Pancreatic cancer Surgical History History of left hip hemiarthroplasty S/P fine needle aspiration (~10/2020) H/O dilation and curettage (~07/10/20) History of Achilles tendon repair Retinopathy History of lumpectomy of left breast Social History household members: spouse Smoking Status: Former smoker alcohol intake: never substance use type: does not use caffeine: Yes what type of physical activity do you participate in: none seatbelt use: always do you feel safe at home: Yes additional social history: [employer]- retired ROS ROS ED ROS Narrative Shortness of breath. Wheezing. Nonproductive cough. No chest pain. No leg swelling or pain. Constitutional Constitutional ED: Denies chills or fever(s) Eyes Eyes: Denies blurry vision Cardiovascular Cardiovascular: Denies chest pain Respiratory/Chest Respiratory/Chest: Reports cough and dyspnea; Denies sputum Gastrointestinal Gastrointestinal: Denies abdominal pain, diarrhea, melena, nausea or vomiting Genitourinary Genitourinary ED: Denies dysuria or hematuria Musculoskeletal Musculoskeletal: Denies arthralgias or back pain Integumentary Denies abscess Neurologic Neurologic: Denies headache(s) Psychiatric Psychiatric: Denies anxiety Endocrine Endocrinology: Denies cold intolerance or heat intolerance Hematologic/Lymphatic Hematologic/Lymphatic: Denies easy bleeding or easy bruising Allergic/Immunologic Allergic/Immunologic ED: Denies mouth swelling, tongue swelling or urticaria EXAM Physical Exam Narrative Exam Narrative: 80-year-old female sitting upright in bed. Vital signs initially her pulse ox was 91% on room air here. She is afebrile. She does not look septic or toxic. H EENT exam pupils round react light. Moist mucous membranes. Neck nontender no JVD. No lymphadenopathy. Lungs prolonged expiratory phase. Few scattered expiratory wheezes. No rales or rhonchi. Equal symmetrical. Heart regular rhythm rate about 90 no murmur. Chest wall ribs nontender. Abdomen soft nontender. Moving all 4 extremities. Nontender no edema no cords. Back nontender. Neurologically she is awake alert. Answering questions following commands. No focal motor deficits. Const Vital Signs: 02/09/25 11:52 02/09/25 12:05 02/09/25 12:05 Temperature 98.8 F Temperature Source Oral Pulse Rate 94 Respiratory Rate 18 Respiratory Effort Short of Breath Respiratory Depth Shallow Respiratory Pattern Tachypnea Blood Pressure 113/64 Blood Pressure Mean 80 Pulse Ox 91 87 Oxygen Delivery Method Room Air Room Air Room Air Oxygen Flow Rate (L/min) 02/09/25 12:09 02/09/25 12:27 02/09/25 12:30 Temperature 98.4 F Temperature Source Oral Pulse Rate 92 86 Respiratory Rate 22 H 30 H Respiratory Effort Respiratory Depth Respiratory Pattern Blood Pressure 112/76 118/52 L Blood Pressure Mean 88 74 Pulse Ox 94 93 92 Oxygen Delivery Method Nasal Cannula Nasal Cannula Nasal Cannula Oxygen Flow Rate (L/min) 2 2 2 02/09/25 12:39 02/09/25 12:39 02/09/25 13:30 Temperature 98.3 F Temperature Source Oral Pulse Rate 88 110 H Respiratory Rate 27 H 16 Respiratory Effort Respiratory Depth Respiratory Pattern Tachypnea Blood Pressure 132/75 H Blood Pressure Mean 94 Pulse Ox 92 91 Oxygen Delivery Method Nasal Cannula Nasal Cannula Oxygen Flow Rate (L/min) 2 2 02/09/25 14:00 02/09/25 14:15 02/09/25 14:45 Temperature 98.4 F Temperature Source Oral Pulse Rate 86 Respiratory Rate 25 H Respiratory Effort Respiratory Depth Respiratory Pattern Blood Pressure 103/68 Blood Pressure Mean 79 Pulse Ox 100 95 87 Oxygen Delivery Method Nasal Cannula Room Air Room Air Oxygen Flow Rate (L/min) 2 Positive well nourished and well developed; Negative for cachectic, contractures or unkempt General Appearance ED: well developed; Negative for unkempt, cachectic, contractures, NAD or pallor Nutritional Appearance: Negative for cachectic HEENT Reports moist mucous membranes atraumatic; Negative for trauma or tenderness Eyes PERRL and EOMs intact bilaterally Neck no lymphadenopathy, supple, no meningeal signs and no JVD Resp normal respiratory effort and No clear to auscultation bilaterally Resp Narrative: Prolonged expiratory phase. Wheezes. Auscultation: wheezes Cardio regular rate, regular rhythm, S1 normal heart sound, S2 normal heart sound and no murmurs GI non-tender, non-distended and no masses Auscultation: normoactive bowel sounds Palpation: soft; Negative for tender, guarding or rebound tenderness present Back/Spine no CVA tenderness and normal to inspection Extremity normal to inspection General Extremety ED: Negative for edema or tenderness General Extremity: Negative for edema Neuro CN's II-XII intact bilaterally Sensorium / Orientation: alert, oriented to person, oriented to place and oriented to time; Negative for confused or lethargic Speech: speech normal Motor Exam: strength 5/5 throughout Psych mental status grossly normal Appearance: Negative for unkempt Attitude: No agitated Mood & Affect: Negative for depressed, anxious or tearful Thought Process: normal thought process Skin no wounds and skin turgor normal General Skin Exam: Negative for jaundice or pallor Lesions: no lesions Rashes: no rashes Trauma: Negative for abrasion or laceration MDM MDM MDM Narrative Medical decision making narrative: 80-year-old female with shortness of breath suspect exacerbation of COPD rule out pneumonia or CHF or other causes. She will need cardiac workup with a chest x-ray. Treated with IV Solu-Medrol, DuoNeb and albuterol aerosols. Repeat exam at 2:25 PM patient is improved. She is resting comfortably. States she is feeling improved. We are going to take her off her oxygen. Have her ambulate and see if she gets hypoxic or not. I suspect this is secondary to those patient's COPD. They will get ready stand the patient a walker and her pulse ox dropped to 87%. She will be admitted for COPD exacerbation rule out CHF. Hospitalist is on page. Currently the patient is resting comfortably. History & Record Review Discussion w/independent historian: Patient Additional record(s) reviewed:: Prior inpatient record, Prior outpatient record, Prior ED visit and Prior labs Lab Data Attestation: I reviewed the patient's lab results. Lab results narrative: CBC shows a white count of 9. H&H 11.5 and 37.9. Platelets 2 numerous to count. Sodium 140. 12. BUN and creatinine of 23 and 1.1. Glucose 173. Initial troponin 122. BNP 9,616. I reviewed her prior labs. She has had previously higher troponins. Her BNP levels typically in the thousands and has been much higher than today. Most recent echocardiogram in December showed an EF of 35 to 40%. Labs: Laboratory Results - last 24 hr 02/09/25 12:23 WBC 9.4 RBC 4.22 Hgb 11.5 L Hct 37.9 MCV 89.8 MCH 27.3 MCHC 30.3 L RDW Std Deviation 51.3 H RDW Coeff of Vijay 15.8 H Plt Count TNP MPV 12.0 Immature Gran % (Auto) 0.800 Neut % (Auto) 86.9 H Lymph % (Auto) 7.3 L [place] % (Auto) 4.5 Eos % (Auto) 0.1 Baso % (Auto) 0.4 Absolute Neuts (auto) 8.2 H Absolute Lymphs (auto) 0.69 L Nucleated RBC % 0.6 Platelet Estimate ADEQUATE Sodium 140 Potassium 4.3 Chloride 98 Carbon Dioxide 29.9 Anion Gap 12 BUN 23 H Creatinine 1.16 Estim Creat Clear Calc 37.42 L Est GFR (MDRD) Non-Af 47 L BUN/Creatinine Ratio 20.2 H Glucose 173 H Calcium 10.2 Troponin T High Sens 122 H* D NT pro BNP II 9616 H Radiography Chest X-Ray - ED: 2 View, Read by ED Physician, Read by Radiologist, Normal, Lungs, Mediastinum, Bony Structures, No Acute Disease, Chronic Changes and Cardiomegaly Diagnostic Testing: Clinical Impression(s) from Imaging Studies Chest X-Ray 02/09/25 12:18 IMPRESSION: Cardiomegaly. Mild degree of bibasilar linear atelectasis. Reading Location: [facility] Chest x-ray, 2 views, interpreted by myself and radiologist. AP and lateral. She has cardiomegaly. Chronic changes. Atelectasis. No pneumonia. No effusions. Rhythm Strip Rhythm Strip: Sinus Rhythm Rate: 93 Ectopy: None EKG Initial EKG: Attestation: I personally reviewed and interpreted this EKG as follows: Interpretation: Sinus Rhythm and No Acute Injury Pattern Comments: Normal sinus rhythm rate of 93 no acute signs VT or ischemia. Patient does have inverted T waves in V4 5 and 6 slight change from prior EKG from February 04. Prior EKG tracings: available for review Prior: Changed Discharge Plan Triage Chief Complaint: Shortness of Breath ED Provider: Jeremiah Corrales Dx/Rx/DC Orders Clinical Impression: Acute dyspnea, Elevated troponin, Hypoxia, COPD exacerbation, History of acute heart failure, History of diabetes mellitus Prescriptions: No Action Januvia 50 mg tablet 50 mg PO DAILY Jardiance 10 mg tablet 10 mg PO DAILY multivitamin Tablet 1 tab PO DAILY pravastatin 20 mg tablet 20 mg PO DAILY aspirin 81 MG tablet,chewable 81 mg PO DAILY metoprolol tartrate 25 MG tablet 25 mg PO BID magnesium oxide 400 MG tablet 400 mg PO BID pantoprazole 40 MG tablet 40 mg PO DAILY gabapentin 100 mg capsule 100 mg PO QHS roflumilast 500 mcg tablet 500 mcg PO DAILY ascorbic acid (vitamin C) [Vitamin C] 250 mg tablet 250 mg PO DAILY insulin lispro [Humalog KwikPen Insulin] 100 unit/mL Insulin Pen 10 unit subcut TIDAC Rx Instructions: Hold if glucose less than 120 mg/dl Mounjaro 5 mg/0.5 mL pen injector 5 mg subcut QWEEK Patient Comments: PT STATES SHE SOMETIMES TAKES IT ON THURSDAY, SOMETIMES ON FRIDAYS. menthol-zinc oxide [CalaSoothe] 0.44-20.6 % ointment 1 applic topical 4X/DAY PRN (Reason: skin irritation) psyllium husk [Daily Fiber] 0.4 gram capsule 0.4 g PO DAILY mecobalamin (vitamin B12) [B12 Active] 1,000 mcg tablet,chewable 1,000 mcg PO DAILY azelastine 137 mcg (0.1 %) spray,non-aerosol 1 - 2 spray INTRANASAL BID acetaminophen 500 mg Tablet 1,000 mg PO Q6H PRN (Reason: Pain Score 1-3) Rocklatan 0.02-0.005 % Drops 1 drp EACH EYE DAILY potassium chloride [K-Tab] 20 mEq tablet extended release 20 meq PO BID ipratropium-albuterol 0.5 mg-3 mg(2.5 mg base)/3 mL Solution For Nebulization 3 ml inhalation Q6H.RT Qty: 120 0RF prednisone 10 mg tablet 10 mg PO BID Qty: 20 0RF furosemide [Lasix] 20 mg tablet 60 mg PO BID Qty: 180 0RF diltiazem HCl 180 mg capsule,ext.rel 24h degradable 180 mg PO DAILY ipratropium bromide 21 mcg (0.03 %) spray,non-aerosol 1 - 2 spray INTRANASAL Q6H PRN (Reason: allergy symptoms) insulin glargine [Lantus Solostar U-100 Insulin] 100 unit/mL (3 mL) insulin pen 20 unit subcut BID (DME) lancets [TRUEplus Lancets] 28 gauge misc MISCELLANEOUS Breztri Aerosphere 160-9-4.8 mcg/actuation HFA aerosol inhaler 2 inh inhalation BID Entresto 24-26 mg tablet 1 tab PO BID Qty: 60 11RF Primary Care Provider: Ramone Smiley Referrals: Ramone Smiley MD [Primary Care Provider] - Print Language: Ecuadorean Disposition Disposition: Acute Care Hospital [facility]
[2025-02-09] MEDS: Albuterol 2.5 MG/3 ML VIAL.NEB. INHALATION ×2 (12:37)
[2025-02-09] MEDS: Ipratropium/Albuterol Sulfate 3 ML AMPUL.NEB INHALATION ×2 (12:37→19:30)
[2025-02-09] MEDS: MethylPREDNISolone 125 MG/2 ML Vial IV (12:39)
[2025-02-09 12:46] LABS: Absolute Lymphocyte Count 0.69 X10^3/uL (0.83-4.51); Absolute Neutrophil Count 8.2 X10^3/uL (2.0-7.7); Basophil# 0.04 X10^3/uL; Basophil% 0.4 % (0-1); Eosinophil# 0.01 X10^3/uL; Eosinophils% 0.1 % (0-5); Hematocrit 37.9 % (37-47); Hemoglobin 11.5 g/dL (12.0-15.0); Lymphocyte # 0.69 X10^3/ul (0.83-4.51); Lymphocyte % 7.3 % (19-41); Mean Corp Hgb Conc 30.3 g/dL (32-36); Mean Corpuscular Hgb 27.3 pg (27.0-32.0); Mean Corpuscular Volume 89.8 fL (81-99); Monocyte# 0.42 X10^3/uL; Monocyte% 4.5 % (0-10); NRBC Flagged by Analyzer 0.6 % (0-5); Neutrophil # 8.19 X10^3/uL (2.7-7.7); Neutrophil % 86.9 % (47-70); POSITIVE COUNT YES; RBC Distribution Width CV 15.8 % (11.6-14.6); RBC Distribution Width SD 51.3 fl (35.1-43.9); Red Blood Count 4.22 M/mm3 (4.2-5.4); White Blood Count 9.4 K/mm3 (4.4-11.0)
[2025-02-09 13:21] LABS: Differential Indicated SCAN CRITERIA MET; Platelet Estimate ADEQUATE (ADEQ)
[2025-02-09 13:25] LABS: Anion Gap 12 (5-15); BUN 23 mg/dL (4-19); BUN/Creat Ratio 20.2 RATIO (10-20); Calcium,Total 10.2 mg/dL (7.6-11.0); Carbon Dioxide 29.9 mmol/L (21.0-32.0); Chloride 98 mmol/L (98-108); Creatinine, Serum 1.16 mg/dL (0.70-1.20); EST Glomerular Filtration Rate 47 (>60); Estimated Creatinine Clearance 37.42 ml/min (50-250); Glucose 173 mg/dL (70-99); Potassium 4.3 mmol/L (3.3-5.1); Sodium Level 140 mmol/L (133-145)
[2025-02-09 13:30] LABS: Troponin T High Sensitivity 122 ng/L (<=14)
[2025-02-09 13:48] LABS: Pro- Brain NATRIURETIC PEPTIDE 9616 pg/mL (<=1800)
[2025-02-09 15:21] LABS: Troponin T High Sens 2 HR 119 ng/L (<=14)
--- NOTE | 2025-02-09 15:25 | HP.PCM.HOS_ITS ---
[facility] - General General Date of Service: 02/09/25 Chief Complaint: sob HPI Narrative OLGA DONALDSON, is a 80 F with pmhx of COPD with recent exacerabation, systolic and diastolic CHF, ischemic cardiomyopathy, T2DM on insulin, who presents with sob. She was discharged from the hospital on 02/06/25 after being treated for COPD and CHF exacerbation. At that time she did not qualify for home o2. She was doing well initially when she was discharged from the hospital until today. Today she became worse with increased SOB and mild productive cough. She states this is worse because it got more hot and humid at home and she was unable to get the air conditioner to respond adequately. She was brought to the ER and in the ER her O2 levels were decreased at 87% on RA and she is 95% on 2lpm O2 via NC. She notes that her LE edema is improving overall. She has no chest pain or chest pressure or tightness, no dizziness or lightheadedness, no palpitations. [facility] Medical History COPD with exacerbation Anemia History of COPD Elevated brain natriuretic peptide (BNP) level Elevated troponin Acute hypoxemic respiratory failure Elevated troponin Coronary artery disease Aortic stenosis Hypertension Obesity (BMI 30.0-34.9) Lactic acidosis Fracture of hip, left, closed Paronychia of left index finger Vaginal cyst Anxiety Depression Irregular heart beat Multiple thyroid nodules Foraminal stenosis of lumbar region Lumbar spinal stenosis Diabetic retinopathy Colon polyp Thyroid goiter Hyperlipidemia Hypokalemia Microcytic anemia Neurogenic bladder Hypophosphatemia Hypercalcemia Former smoker UTI (urinary tract infection) Iron deficiency anemia Hyponatremia Urine retention Chronic renal failure, stage 3 (moderate) Cellulitis and abscess of finger, unspecified Retinopathy Peripheral artery disease Leg weakness, bilateral GERD (gastroesophageal reflux disease) Chronic idiopathic constipation COPD (chronic obstructive pulmonary disease) Polypharmacy Hypertension Carpal tunnel syndrome of right wrist Strain of right rotator cuff capsule Rhinitis Urinary retention with incomplete bladder emptying Vitamin D deficiency Asthma Pruritus Goiter, nontoxic, multinodular Anemia Diabetes Hx of venous thrombosis and embolism History of malignant neoplasm of breast Type 2 diabetes mellitus Home Medications ?Medication ?Instructions ?Recorded ?Last Taken ?Type aspirin 81 mg chewable tablet 81 mg PO DAILY HEART HEA LTH 01/21/16 01/15/25 History magnesium oxide 400 mg (241.3 mg 400 mg PO BID SUPPLEM ENT 08/16/18 01/15/25 History magnesium) tablet metoprolol tartrate 25 mg tablet 25 mg PO BID BLOOD OH ESSURE 08/16/18 01/15/25 History pantoprazole 40 mg tablet,delayed 40 mg PO DAILY ACID REFLUX 12/02/19 01/15/25 History release empagliflozin 10 mg tablet 10 mg PO DAILY DIABETES 01/15/25 History (Jardiance) sitagliptin phosphate 50 mg tablet 50 mg PO DAILY DIAB ETES 10/18/20 01/15/25 History (Januvia) multivitamin 1 tab PO DAILY VITAMIN 12/0601/15/25 History pravastatin 20 mg tablet 20 mg PO DAILY CHOLESTEROL 0 12/06/21 01/15/25 History ascorbic acid (vitamin C) 250 mg 250 mg PO DAILY SUPPL EMENT 08/13/23 01/15/25 History tablet (Vitamin C) gabapentin 100 mg capsule 100 mg PO QHS NERVE PAIN 01/14/25 History roflumilast 500 mcg tablet 500 mcg PO DAILY COPD 08/1301/15/25 History insulin lispro 100 unit/mL 10 unit subcut TIDAC short acting 12/30/23 01/15/25 History subcutaneous pen (Humalog KwikPen insulin (U-100) Insulin) budesonide 160 mcg-glycopyr 9 2 inh inhalation BID franklyn athing 01/07/25 01/15/25 History mcg-formot 4.8 mcg/actuation HFA inhaler (Breztri Aerosphere) diltiazem HCl 180 mg 180 mg PO DAILY heart 01/15/25 History capsule,extended release 24 hr, controlled insulin glargine 100 unit/mL (3 20 unit subcut BID marco a betes 01/07/25 01/15/25 History mL) subcutaneous pen (Lantus Solostar U-100 Insulin) ipratropium bromide 21 mcg (0.03 1 - 2 spray intranasa l Q6H PRN 01/07/25 Unknown History %) nasal spray allergy symptoms lancets 28 gauge (TRUEplus Lancets) 01/07/25 Unknown History acetaminophen 500 mg tablet 1,000 mg PO Q6H PRN Pain S core 1-3 01/15/25 Unknown History azelastine 137 mcg (0.1 %) nasal 1 - 2 spray intranasa l BID nasal 01/15/25 01/15/25 History spray spray mecobalamin (vitamin B12) 1,000 1,000 mcg PO DAILY hea lth 01/15/25 01/15/25 History mcg chewable tablet (B12 Active) maintenance menthol 0.44 %-zinc oxide 20.6 % 1 applic topical 4X/D AY PRN skin 01/15/25 Unknown History topical ointment (CalaSoothe) irritation netarsudil 0.02 %-latanoprost 1 drp EACH EYE DAILY eye drops 01/15/25 01/15/25 History 0.005 % eye drops (Rocklatan) psyllium husk 0.4 gram capsule 0.4 g PO DAILY constipa tion 01/15/25 01/15/25 History (Daily Fiber) tirzepatide 5 mg/0.5 mL 5 mg subcut QWEEK diabetes 0 01/15/25 Unknown History subcutaneous pen injector (Prabhu) potassium chloride 20 mEq 20 meq PO BID supplement 03/24 Unknown History tablet,extended release (K-Tab) furosemide 20 mg tablet (Lasix) 60 mg (3 x 20 mg) PO B ID #180 tabs 02/06/25 Unknown Rx ipratropium 0.5 mg-albuterol 3 mg 3 ml inhalation Q6H. RT #120 amps 02/06/25 Unknown Rx (2.5 mg base)/3 mL nebulization soln prednisone 10 mg tablet 10 mg PO BID #20 tabs Unknown Rx sacubitril 24 mg-valsartan 26 mg 1 tab PO BID #60 tabs 02/07/25 Unknown Rx tablet (Entresto) albuterol sulfate 90 mcg/actuation 2 puff inhalation Q 6H PRN 02/09/25 Unknown History aerosol inhaler shortness of breath or wheez ing cetirizine 10 mg tablet 10 mg PO DAILY 02/09/25 Unkn own History hydroxyzine HCl 25 mg tablet 12.5 mg PO QHS allergies 02/09/25 Unknown History spironolactone 25 0.5 tab PO DAILY 02/09/25 Un known History mg-hydrochlorothiazide 25 mg tablet Allergy/AdvReac Type Severity Reaction Status Date / Time adhesive tape (tape) Allergy NEEDS Verified 02/09/25 11:59 FOLLOW-UP cephalexin monohydrate (From Allergy Rash Verified 02/09/25 11:59 Keflex) clopidogrel bisulfate (From Allergy Other Verified 02/09/25 11:59 Plavix) amoxicillin AdvReac YEAST Verified 02/09/25 11:59 INFECTION Family History Daughter Breast cancer Father Hypertension Sister Cancer Kidney disease Mother Pancreatic cancer Surgical History History of left hip hemiarthroplasty S/P fine needle aspiration (~10/2020) H/O dilation and curettage (~07/10/20) History of Achilles tendon repair Retinopathy History of lumpectomy of left breast Social History household members: spouse Smoking Status: Former smoker alcohol intake: never substance use type: does not use caffeine: Yes what type of physical activity do you participate in: none seatbelt use: always do you feel safe at home: Yes additional social history: [employer]- retired ROS Constitutional Constitutional: Denies chills, fever(s) or weakness Eyes Eyes: Denies blurry vision ENT HEENT: Denies nasal congestion, sinus pressure or sore throat Cardiovascular Cardiovascular: Denies chest pain, edema, lightheadedness or palpitations Respiratory/Chest Respiratory/Chest: Reports cough, dyspnea and productive cough Gastrointestinal Gastrointestinal: Denies abdominal pain, diarrhea, nausea or vomiting Genitourinary Genitourinary: Denies burning urination Musculoskeletal Musculoskeletal: Denies arthralgias Neurologic Neurologic: Denies abnormal gait Psychiatric Psychiatric: Denies anxiety Endocrine Endocrinology: Denies change in body appearance Hematologic/Lymphatic Hematologic/Lymphatic: Reports anemia Allergic/Immunologic Allergic/Immunologic: Denies rhinitis Vital Signs Vital Signs Vital Signs: 02/09/25 11:52 02/09/25 12:05 02/09/25 12:05 Temperature 98.8 F Temperature Source Oral Pulse Rate 94 Respiratory Rate 18 Respiratory Effort Short of Breath Respiratory Depth Shallow Respiratory Pattern Tachypnea Blood Pressure 113/64 Blood Pressure Mean 80 Pulse Ox 91 87 Oxygen Delivery Method Room Air Room Air Room Air Oxygen Flow Rate (L/min) 02/09/25 12:09 02/09/25 12:27 02/09/25 12:30 Temperature 98.4 F Temperature Source Oral Pulse Rate 92 86 Respiratory Rate 22 H 30 H Respiratory Effort Respiratory Depth Respiratory Pattern Blood Pressure 112/76 118/52 L Blood Pressure Mean 88 74 Pulse Ox 94 93 92 Oxygen Delivery Method Nasal Cannula Nasal Cannula Nasal Cannula Oxygen Flow Rate (L/min) 2 2 2 02/09/25 12:39 02/09/25 12:39 02/09/25 13:30 Temperature 98.3 F Temperature Source Oral Pulse Rate 88 110 H Respiratory Rate 27 H 16 Respiratory Effort Respiratory Depth Respiratory Pattern Tachypnea Blood Pressure 132/75 H Blood Pressure Mean 94 Pulse Ox 92 91 Oxygen Delivery Method Nasal Cannula Nasal Cannula Oxygen Flow Rate (L/min) 2 2 02/09/25 14:00 02/09/25 14:15 02/09/25 14:45 Temperature 98.4 F Temperature Source Oral Pulse Rate 86 Respiratory Rate 25 H Respiratory Effort Respiratory Depth Respiratory Pattern Blood Pressure 103/68 Blood Pressure Mean 79 Pulse Ox 100 95 87 Oxygen Delivery Method Nasal Cannula Room Air Room Air Oxygen Flow Rate (L/min) 2 02/09/25 15:03 02/09/25 15:08 02/09/25 15:12 Temperature 99 F 99 F Temperature Source Oral Pulse Rate 91 94 Respiratory Rate 22 H 25 H Respiratory Effort Respiratory Depth Respiratory Pattern Blood Pressure 136/46 H 136/46 H Blood Pressure Mean 76 76 Pulse Ox 87 90 91 Oxygen Delivery Method Room Air Nasal Cannula Oxygen Flow Rate (L/min) 2 Weight Weight: 77.2 kg Body Mass Index (BMI) 30.1 Physical Exam Const alert, oriented x3 and no apparent distress General Appearance: cooperative HEENT normocephalic and head/scalp atraumatic Eyes PERRL Neck no lymphadenopathy Resp normal respiratory effort Auscultation: wheezes expiratory wheezes Cardio regular rate, regular rhythm and no murmurs Extremity Extremity Narrative: trace pitting edema BL LE Skin Skin Narrative: dry scaly LE skin Neuro oriented x3 Psych affect normal Results Lab / Micro Data 02/09/25 12:23 02/09/25 12:23 Labs: Laboratory Results - last 24 hr 02/09/25 12:23: WBC 9.4, RBC 4.22, Hgb 11.5 L, Hct 37.9, MCV 89.8, MCH 27.3, M CHC 30.3 L, RDW Std Deviation 51.3 H, RDW Coeff of Vijya 15.8 H, Plt Count TNP, MPV 12.0, Immature Gran % (Auto) 0.800, Neut % (Auto) 86.9 H, Lymph % (Auto) 7.3 L, [place] % (Auto) 4.5, Eos % (Auto) 0.1, Baso % (Auto) 0.4, Absolute Neuts (auto) 8.2 H, Absolute Lymphs (auto) 0.69 L, Nucleated RBC % 0.6, Platelet Estimate ADEQUATE, Sodium 140, Potassium 4.3, Chloride 98, Carbon Dioxide 29.9, Anion Gap 12, BUN 23 H, Creatinine 1.16, Estim Creat Clear Calc 37.42 L, Est GFR (MDRD) Non-Af 47 L, BUN/Creatinine Ratio 20.2 H, Glucose 173 H, Calcium 10.2, Troponin T High Sens 122 H* D, NT pro BNP II 9616 H 02/09/25 14:29: Troponin T Hi Sens 2 Hr 119 H* Rhythm Strip Rhythm Strip: Sinus Rhythm Rate: 93 Ectopy: None Imaging Radiology Impression Chest X-Ray 02/09/25 12:18 IMPRESSION: Cardiomegaly. Mild degree of bibasilar linear atelectasis. Reading Location: [facility] Assessment & Plan Assessment/Plan (1) COPD exacerbation: PLAN: 1. Acute COPD exacerbation with acute hypoxia - admit to meds surg. 87% RA in ER, 95% on 2lpm, no prior home o2 use. no evidence of acute infectious process. cxr with some atelectasis, EKG NSR. Very wheezy on exam throughout all white. pt placed on IV solumedrol and breathing treatments. 2. Indetermine troponin - troponin decreased since last visit. she has no CP, pressure, tightness, LH, or palp and a normal EKG. There is low suspicion for an acute cardiac process 3. Chronic systolic and diastolic CHF -BNP is chronically elevated. overall her LE edema is improved. She will be on 20 mg IV lasix q8h 4. Hx Ischemic CM - on entresto, lasix, aspirin, statin, metoprolol, cardizem 5. T2DM - continue home regimen plus sliding scale insulin DVT ppx: heparin Code status: discussed with Pt, she is Full Code. DC planning: is not interested in SNF, she wants to go home, and may need home o2 at discharge This patient was seen by Tono Gomez PA-C under the supervision of Doctor Michi. (2) Hypoxia:
[2025-02-09] MEDS: Insulin Lispro 100 UNIT/ML INSULN.PEN 10 UNIT SC (17:07)
[2025-02-09 17:22] LABS: Bedside Glucose 248 mg/dL (74-106)
[2025-02-09] MEDS: Insulin Lispro 100 UNIT/ML INSULN.PEN SC (21:41)
[2025-02-09] MEDS: Insulin Glargine-YFGN 100 UNIT/ML Pen 20 UNIT SC (21:42)
[2025-02-09] MEDS: Furosemide 20 MG/2 ML VIAL IV (21:42)
[2025-02-09] MEDS: Heparin Injection (Vial) 5,000 UNIT/ML VIAL 5000 UNIT SC (21:42)
[2025-02-09] MEDS: 0.9% Saline Lock 10 ML Syringe IV (21:48)
[2025-02-09] MEDS: SACUBITRIL/VALSARTAN 24/26 MG TABLET 1 EACH PO (21:50)
[2025-02-09] MEDS: hydrOXYzine 10 MG Tablet 12.5 MG PO (21:50)
[2025-02-09] MEDS: Magnesium Chloride 64 MG Delay Rel.Tablet 128 MG PO (21:52)
[2025-02-09] MEDS: Metoprolol Tartrate 25 MG Tablet PO (21:52)
[2025-02-09] MEDS: Potassium Chloride Oral Tablet 20 MEQ PO (21:52)
[2025-02-09] MEDS: Gabapentin 100 MG Capsule PO (21:55)
[2025-02-09 23:33] LABS: Bedside Glucose 401 mg/dL (74-106)
[2025-02-10] VITALS (9 sets, daily range): BP systolic 122–141; BP diastolic 51–60; PULSE 78–90; RESP 17–22; TEMP 36.2–37.1; O2SAT 95–98
[2025-02-10] MEDS: Ipratropium/Albuterol Sulfate 3 ML AMPUL.NEB INHALATION ×3 (01:15→20:05)
[2025-02-10] MEDS: Heparin Injection (Vial) 5,000 UNIT/ML VIAL 5000 UNIT SC ×3 (05:12→21:51)
[2025-02-10] MEDS: 0.9% Saline Lock 10 ML Syringe IV ×2 (05:12→13:46)
[2025-02-10] MEDS: Furosemide 20 MG/2 ML VIAL IV ×3 (05:13→21:52)
[2025-02-10 07:15] LABS: Anion Gap 14 (5-15); BUN 23 mg/dL (4-19); BUN/Creat Ratio 20.8 RATIO (10-20); Carbon Dioxide 26.8 mmol/L (21.0-32.0); Chloride 98 mmol/L (98-108); EST Glomerular Filtration Rate 50 (>60); Estimated Creatinine Clearance 39.32 ml/min (50-250); Glucose 361 mg/dL (70-99); Potassium 4.9 mmol/L (3.3-5.1); Sodium Level 139 mmol/L (133-145)
[2025-02-10] MEDS: Latanoprost 0.005% 1 Bottle 1 DRP EACH EYE (08:43)
[2025-02-10] MEDS: Pantoprazole Sodium 40 MG Tablet PO (08:43)
[2025-02-10] MEDS: Aspirin 81 MG TAB.CHEW PO (08:43)
[2025-02-10] MEDS: Loratadine 10 MG Tablet PO (08:43)
[2025-02-10] MEDS: ROFLUMILAST 500 MCG TABLET PO (08:43)
[2025-02-10] MEDS: Magnesium Chloride 64 MG Delay Rel.Tablet 128 MG PO ×2 (08:44→21:52)
[2025-02-10] MEDS: Cyanocobalamin 500 MCG Tablet 1000 MCG PO (08:44)
[2025-02-10] MEDS: Empagliflozin 10 MG Tablet PO (08:44)
[2025-02-10] MEDS: dilTIAZem CD 180 MG Capsule PO (08:44)
[2025-02-10] MEDS: Metoprolol Tartrate 25 MG Tablet PO ×2 (08:44→21:53)
[2025-02-10] MEDS: LINAGLIPTIN 5 MG TABLET PO (08:44)
[2025-02-10] MEDS: Pravastatin 20 MG Tablet PO (08:44)
[2025-02-10] MEDS: Potassium Chloride Oral Tablet 20 MEQ PO ×2 (08:44→21:54)
[2025-02-10] MEDS: SACUBITRIL/VALSARTAN 24/26 MG TABLET 1 EACH PO ×2 (08:46→21:52)
[2025-02-10] MEDS: Insulin Lispro 100 UNIT/ML INSULN.PEN 15 UNIT SC (08:57)
[2025-02-10] MEDS: Insulin Lispro 100 UNIT/ML INSULN.PEN 10 UNIT SC ×2 (08:57→11:46)
[2025-02-10] MEDS: Insulin Glargine-YFGN 100 UNIT/ML Pen 20 UNIT SC ×2 (08:58→21:56)
[2025-02-10] MEDS: Insulin Lispro 100 UNIT/ML INSULN.PEN SC ×2 (11:47→21:55)
[2025-02-10 12:06] LABS: Bedside Glucose 222 mg/dL (74-106)
[2025-02-10] MEDS: Magnesium Hydroxide 30 ML UDC PO (12:11)
--- NOTE | 2025-02-10 12:37 | CASEMGMT ---
SHAWANDA BURROUGHS Readmission Note Previous Admission: 02/04/25-02/06/25 Diagnosis: hypoxia, COPD exac DC Disposition: [facility]bulizer [facility] Current Admission: Admitted 02/09/25 Current Diagnosis: hypoxia, COPD exac Pt dc'd from previous admission and did not require home oxygen. Pt was dc'd with HHC to resume and a nebulizer provided by [employer]. Pt did well once home until it became humid in her home. Pt then represented to the hospital with SOB and was 87% on RA. Pt has been dx with parainfluenza virus. Pt has followed up with PCP on Thursday. Pt states she was taking her medications as ordered. Pt would like her HHC to resume with [facility], she denies need for a list of other options for HHC. Pt denies any need for any further DME at home. Discussed if pt qualifies for home oxygen, options for local in network DME companies. Pt states she would like [facility] which is where she got her nebulizer from. Pt denies any further homegoing needs. Green sheet on chart in case pt needs home oxygen. Pt has a pox. DC Plan: [facility], follow for oxygen. HUMAIRA Zamorano at [facility] [place], they are able to accept pt back for services.
--- NOTE | 2025-02-10 15:01 | CHAPLAIN ---
Type of Pastoral Visit ___ Initial Visit ___ Follow-up Visit ___ On-call Visit ___ General Patient Visit ___ Spiritual Assessment ___ Family Conference ___ Bereavement ___ Rapid Response ___ Code Blue ___ Other (describe below) Pastoral Care Referral From ___ Patient ___ Family ___ Nurse ___ Physician ___ Compressor Mechanic Bus ___ Multimedia Technician ___ Other (describe below) Sacrament/Intervention ___ Active listening ___ Anointing ___ Pentecostal ___ Bereavement ___ Communion ___ Kristal exploration ___ ___ Life review ___ Prayer ___ Reconciliation ___ Sacrament of Sick ___ Supportive presence ___ Wedding ___ Other (describe below) Pastoral Comments at time of attempted visit the patient was receiving patient care and was in an isolated room;
--- NOTE | 2025-02-10 17:20 | PN.HOSP_ITS ---
Reason for Visit Reason for Visit: Diagnoses Chronic obstructive pulmonary disease with (acute) exacerbation (02/09/25) Hypoxemia (02/09/25) Subjective Subjective Patient was seen and examined today, I talked with her son who was visiting, he had questions about why the patient returns to the hospital so much, I told him that this time she had a parainfluenza 3 infection. Objective Data Objective Data Vital Signs: Vital Signs Temp Pulse Resp BP Pulse Ox O2 Del Method O2 Flow Rate 97.2 F L 85 18 122/52 H 98 Nasal Cannula 2 02/10/25 14:00 02/10/25 14:00 02/10/25 14:00 02/10/25 14:00 02/10/25 14:00 02/10/25 14:06 02/10/25 14:06 Oxygen Flow Rate (L/min) 2 Oxygen Delivery Method Nasal Cannula Weight: 76.657 kg Body Mass Index (BMI) 29.9 Intake & Output: Intake and Output for Last 24 Hours 02/08/25 02/09/25 02/10/25 23:59 23:59 23:59 Intake Total 150 / 150 240 / 240 Output Total 500 / 500 750 / 750 Balance -350 / -350 -510 / -510 Lab / Micro Data 02/09/25 12:23 02/10/25 05:36 Labs: Laboratory Results - last 24 hr 02/09/25 17:04: POC Glucose 248 H 02/09/25 21:27: POC Glucose 401 H 02/10/25 05:36: Sodium 139, Potassium 4.9, Chloride 98, Carbon Dioxide 26.8, Anion Gap 14, BUN 23 H, Creatinine 1.10, Estim Creat Clear Calc 39.32 L, Est GFR (MDRD) Non-Af 50 L, BUN/Creatinine Ratio 20.8 H, Glucose 361 H, Calcium 10.0 02/10/25 11:44: POC Glucose 222 H Micro: Microbiology 02/09/25 19:54 Mucosa - Nasopharyngeal Respiratory Panel (PCR) - Final Parainfluenza 3 Rhythm Strip Rhythm Strip: Sinus Rhythm Rate: 93 Ectopy: None Physical Exam Const alert, oriented x3 and no apparent distress General Appearance: cooperative, well kempt and well developed Orientation / Consciousness: awake, oriented to person, oriented to place and oriented to time HEENT normocephalic, head/scalp atraumatic and moist oral mucous membranes Eyes PERRL, EOMs intact bilaterally and conjunctivae normal Neck supple, no JVD, thyroid normal and no carotid bruits General: trachea midline Resp normal respiratory effort, no retractions and no use of accessory muscles Auscultation: wheezes expiratory wheezes and throughout; Negative for rales or rhonchi Cardio regular rate, regular rhythm, S1 normal heart sound, S2 normal heart sound, no murmurs, no rub and no gallops GI normal to inspection, nondistended, normoactive bowel sounds, soft to palpation, non-tender and non-distended Extremity no clubbing, cyanosis or edema Skin no rashes or lesions noted General Skin Exam: no breakdown Neuro oriented x3, CN's II-XII intact bilaterally, moves all extremities, no focal motor deficits and no sensory deficits noted Sensorium / Orientation: awake and alert Speech: speech normal Psych affect normal Assessment & Plan Assessment/Plan (1) COPD exacerbation: PLAN: Plan 1. Exacerbation of COPD secondary to parainfluenza 3 infection-patient will remain on aerosol treatments and IV Solu-Medrol #2 hypoxia secondary to #1-pulse ox will be monitored, oxygen will be weaned if possible #3 chronic diastolic congestive heart failure-patient will remain on IV Lasix #4 type 2 diabetes-blood sugars will be monitored, extra insulin was given today due to elevated blood sugar #5 ischemic cardiomyopathy-complicates care, management, recovery, and prognosis Total clinical time spent by myself addressing the patient's medical issues, reviewing all of her data, and collaborating with patient's care team: 35- minutes Charges/Coding Visit Charges Inpatient E&M: 87136 Subs Hosp L2
[2025-02-10 18:30] LABS: Bedside Glucose 64 mg/dL (74-106)
[2025-02-10 18:30] LABS: Bedside Glucose 78 mg/dL (74-106)
[2025-02-10] MEDS: Gabapentin 100 MG Capsule PO (21:51)
[2025-02-10] MEDS: hydrOXYzine 10 MG Tablet 12.5 MG PO (21:53)
[2025-02-10] MEDS: Methylprednisolone Sod Succ 40 MG/ML VIAL 20 MG IV (21:55)
[2025-02-10 22:45] LABS: Bedside Glucose 167 mg/dL (74-106)
[2025-02-11] VITALS (10 sets, daily range): BP systolic 113–130; BP diastolic 40–74; PULSE 41–100; RESP 16–28; TEMP 36.4–37.1; O2SAT 93–97
[2025-02-11] MEDS: Ipratropium/Albuterol Sulfate 3 ML AMPUL.NEB INHALATION ×4 (01:10→19:50)
--- NOTE | 2025-02-11 03:31 | NURSING ---
Pt reported to this RN that she thought her Blood Sugar was running low. BS checked and was 206.
[2025-02-11 03:48] LABS: Bedside Glucose 206 mg/dL (74-106)
[2025-02-11] MEDS: Methylprednisolone Sod Succ 40 MG/ML VIAL 20 MG IV ×3 (06:39→21:32)
[2025-02-11] MEDS: Furosemide 20 MG/2 ML VIAL IV ×3 (06:43→21:32)
[2025-02-11] MEDS: Heparin Injection (Vial) 5,000 UNIT/ML VIAL 5000 UNIT SC ×3 (06:44→21:33)
[2025-02-11 07:13] LABS: Bedside Glucose 242 mg/dL (74-106)
[2025-02-11] MEDS: SACUBITRIL/VALSARTAN 24/26 MG TABLET 1 EACH PO ×2 (08:10→21:34)
[2025-02-11] MEDS: Loratadine 10 MG Tablet PO (08:10)
[2025-02-11] MEDS: dilTIAZem CD 180 MG Capsule PO (08:10)
[2025-02-11] MEDS: Aspirin 81 MG TAB.CHEW PO (08:10)
[2025-02-11] MEDS: ROFLUMILAST 500 MCG TABLET PO (08:10)
[2025-02-11] MEDS: Magnesium Chloride 64 MG Delay Rel.Tablet 128 MG PO ×2 (08:11→21:40)
[2025-02-11] MEDS: Pravastatin 20 MG Tablet PO (08:11)
[2025-02-11] MEDS: Metoprolol Tartrate 25 MG Tablet PO ×2 (08:11→21:40)
[2025-02-11] MEDS: Potassium Chloride Oral Tablet 20 MEQ PO ×2 (08:11→21:34)
[2025-02-11] MEDS: Empagliflozin 10 MG Tablet PO (08:11)
[2025-02-11] MEDS: Pantoprazole Sodium 40 MG Tablet PO (08:11)
[2025-02-11] MEDS: Cyanocobalamin 500 MCG Tablet 1000 MCG PO (08:12)
[2025-02-11] MEDS: LINAGLIPTIN 5 MG TABLET PO (08:12)
[2025-02-11] MEDS: Latanoprost 0.005% 1 Bottle 1 DRP EACH EYE (08:12)
[2025-02-11] MEDS: Insulin Lispro 100 UNIT/ML INSULN.PEN SC ×3 (08:13→21:39)
[2025-02-11] MEDS: Insulin Lispro 100 UNIT/ML INSULN.PEN 10 UNIT SC ×2 (08:13→11:59)
[2025-02-11] MEDS: Insulin Glargine-YFGN 100 UNIT/ML Pen 20 UNIT SC ×2 (08:19→21:56)
[2025-02-11 09:02] LABS: Bedside Glucose 305 mg/dL (74-106)
[2025-02-11 12:22] LABS: Bedside Glucose 257 mg/dL (74-106)
[2025-02-11] MEDS: Magnesium Citrate 300 ML 150 ML PO (13:58)
--- NOTE | 2025-02-11 16:21 | PN.HOSP_ITS ---
Reason for Visit Reason for Visit: Diagnoses Chronic obstructive pulmonary disease with (acute) exacerbation (02/09/25) Hypoxemia (02/09/25) Subjective Subjective Patient was seen and examined today, she requested medication for constipation, yesterday gave her milk of magnesia but according to nursing that was not enough. I had nursing give her 8 ounces of mag citrate. Objective Data Objective Data Vital Signs: Vital Signs Temp Pulse Resp BP Pulse Ox O2 Del Method O2 Flow Rate 98.8 F 41 L 18 127/62 H 96 Nasal Cannula 2 02/11/25 07:44 02/11/25 13:05 02/11/25 13:05 02/11/25 07:44 02/11/25 07:44 02/11/25 08:30 02/11/25 07:44 Oxygen Flow Rate (L/min) 2 Oxygen Delivery Method Nasal Cannula Weight: 76.657 kg Body Mass Index (BMI) 29.9 Intake & Output: Intake and Output for Last 24 Hours 02/09/25 02/10/25 02/11/25 23:59 23:59 23:59 Intake Total 150 / 150 752 / 752 300 / 300 Output Total 500 / 500 1450 / 1450 500 / 500 Balance -350 / -350 -698 / -698 -200 / -200 Lab / Micro Data 02/09/25 12:23 02/10/25 05:36 Labs: Laboratory Results - last 24 hr 02/10/25 16:52: POC Glucose 64 L 02/10/25 17:10: POC Glucose 78 02/10/25 21:45: POC Glucose 167 H 02/11/25 03:29: POC Glucose 206 H 02/11/25 06:38: POC Glucose 242 H 02/11/25 08:04: POC Glucose 305 H 02/11/25 11:58: POC Glucose 257 H Micro: Microbiology 02/09/25 19:54 Mucosa - Nasopharyngeal Respiratory Panel (PCR) - Final Parainfluenza 3 Rhythm Strip Rhythm Strip: Sinus Rhythm Rate: 93 Ectopy: None Physical Exam Narrative alert, oriented x3 and no apparent distress General Appearance: cooperative, well kempt and well developed Orientation / Consciousness: awake, oriented to person, oriented to place and oriented to time HEENT normocephalic, head/scalp atraumatic and moist oral mucous membranes Eyes PERRL, EOMs intact bilaterally and conjunctivae normal Neck supple, no JVD, thyroid normal and no carotid bruits General: trachea midline Resp normal respiratory effort, no retractions and no use of accessory muscles Auscultation: wheezes expiratory wheezes and throughout; Negative for rales or rhonchi Cardio regular rate, regular rhythm, S1 normal heart sound, S2 normal heart sound, no murmurs, no rub and no gallops GI normal to inspection, nondistended, normoactive bowel sounds, soft to palpation, non-tender and non-distended Extremity no clubbing, cyanosis or edema Skin no rashes or lesions noted General Skin Exam: no breakdown Neuro oriented x3, CN's II-XII intact bilaterally, moves all extremities, no focal motor deficits and no sensory deficits noted Sensorium / Orientation: awake and alert Speech: speech normal Psych affect normal Assessment & Plan Assessment/Plan (1) COPD exacerbation: PLAN: Plan 1. Exacerbation of COPD secondary to parainfluenza 3 infection-patient will remain on aerosol treatments and IV Solu-Medrol #2 hypoxia secondary to #1-pulse ox will be monitored, oxygen will be weaned if possible #3 chronic diastolic congestive heart failure-patient will remain on IV Lasix #4 type 2 diabetes-blood sugars will be monitored, extra insulin was given today due to elevated blood sugar #5 ischemic cardiomyopathy-complicates care, management, recovery, and prognosis #6 infection with parainfluenza 3 virus-complicates care, management, recovery, and prognosis Total clinical time spent by myself addressing the patient's medical issues, reviewing all of her data, and collaborating with patient's care team: 35- minutes Charges/Coding Visit Charges Inpatient E&M: 54693 Subs Hosp L2
[2025-02-11 17:21] LABS: Bedside Glucose 124 mg/dL (74-106)
[2025-02-11] MEDS: Gabapentin 100 MG Capsule PO (21:33)
[2025-02-11] MEDS: 0.9% Saline Lock 10 ML Syringe IV (21:33)
[2025-02-11] MEDS: hydrOXYzine 10 MG Tablet 12.5 MG PO (21:33)
[2025-02-11] MEDS: Acetaminophen 500 MG Tablet 1000 MG PO (21:41)
[2025-02-11] MEDS: Menthol/Lanolin/Calamine/Znox 113 GM Tube 1 APPLIC TOPICAL (21:56)
[2025-02-11 22:00] LABS: Bedside Glucose 276 mg/dL (74-106)
[2025-02-12] VITALS (9 sets, daily range): BP systolic 120–141; BP diastolic 50–57; PULSE 82–94; RESP 16–24; TEMP 36.4–36.8; O2SAT 91–97
[2025-02-12] MEDS: Furosemide 20 MG/2 ML VIAL IV ×3 (06:18→22:09)
[2025-02-12] MEDS: Heparin Injection (Vial) 5,000 UNIT/ML VIAL 5000 UNIT SC ×3 (06:19→22:09)
[2025-02-12] MEDS: Methylprednisolone Sod Succ 40 MG/ML VIAL 20 MG IV ×3 (06:20→22:17)
[2025-02-12] MEDS: 0.9% Saline Lock 10 ML Syringe IV (06:21)
[2025-02-12 06:43] LABS: Bedside Glucose 246 mg/dL (74-106)
[2025-02-12] MEDS: Ipratropium/Albuterol Sulfate 3 ML AMPUL.NEB INHALATION ×2 (07:14→19:55)
[2025-02-12] MEDS: Loratadine 10 MG Tablet PO (08:44)
[2025-02-12] MEDS: Aspirin 81 MG TAB.CHEW PO (08:44)
[2025-02-12] MEDS: ROFLUMILAST 500 MCG TABLET PO (08:44)
[2025-02-12] MEDS: dilTIAZem CD 180 MG Capsule PO (08:44)
[2025-02-12] MEDS: Menthol/Lanolin/Calamine/Znox 113 GM Tube 1 APPLIC TOPICAL ×4 (08:44→22:07)
[2025-02-12] MEDS: Potassium Chloride Oral Tablet 20 MEQ PO ×2 (08:45→22:09)
[2025-02-12] MEDS: Metoprolol Tartrate 25 MG Tablet PO ×2 (08:45→22:08)
[2025-02-12] MEDS: SACUBITRIL/VALSARTAN 24/26 MG TABLET 1 EACH PO ×2 (08:45→22:08)
[2025-02-12] MEDS: Empagliflozin 10 MG Tablet PO (08:45)
[2025-02-12] MEDS: Pravastatin 20 MG Tablet PO (08:46)
[2025-02-12] MEDS: Pantoprazole Sodium 40 MG Tablet PO (08:46)
[2025-02-12] MEDS: Magnesium Chloride 64 MG Delay Rel.Tablet 128 MG PO ×2 (08:46→22:09)
[2025-02-12] MEDS: Latanoprost 0.005% 1 Bottle 1 DRP EACH EYE (08:46)
[2025-02-12] MEDS: LINAGLIPTIN 5 MG TABLET PO (08:46)
[2025-02-12] MEDS: Cyanocobalamin 500 MCG Tablet 1000 MCG PO (08:46)
[2025-02-12] MEDS: Insulin Lispro 100 UNIT/ML INSULN.PEN 10 UNIT SC ×2 (08:47→12:35)
[2025-02-12] MEDS: Insulin Lispro 100 UNIT/ML INSULN.PEN SC ×3 (08:47→22:16)
[2025-02-12] MEDS: Insulin Glargine-YFGN 100 UNIT/ML Pen 20 UNIT SC ×2 (08:48→22:17)
[2025-02-12 09:19] LABS: Bedside Glucose 312 mg/dL (74-106)
--- NOTE | 2025-02-12 11:23 | PN.HOSP_ITS ---
Reason for Visit Reason for Visit: Diagnoses Chronic obstructive pulmonary disease with (acute) exacerbation (02/09/25) Hypoxemia (02/09/25) Subjective Subjective Patient was seen and examined today, she remains on 2 L of oxygen via nasal cannula. Patient still complains of constipation, she has had milk of magnesia and 5 ounces of mag citrate, I have elected to give her 10 ounces of mag citrate today. Objective Data Objective Data Vital Signs: Vital Signs Temp Pulse Resp BP Pulse Ox O2 Del Method O2 Flow Rate 97.6 F L 82 18 129/57 H 95 Nasal Cannula 1 02/12/25 08:32 02/12/25 08:45 02/12/25 08:32 02/12/25 08:32 02/12/25 08:32 02/12/25 08:35 02/12/25 08:35 Oxygen Flow Rate (L/min) 1 Oxygen Delivery Method Nasal Cannula Weight: 76.657 kg Body Mass Index (BMI) 29.9 Intake & Output: Intake and Output for Last 24 Hours 02/10/25 02/11/25 02/12/25 23:59 23:59 23:59 Intake Total 752 / 752 300 / 500 450 / 450 Output Total 1450 / 1450 1500 / 1650 400 / 400 Balance -698 / -698 -1200 / -1150 50 / 50 Lab / Micro Data 02/09/25 12:23 02/10/25 05:36 Labs: Laboratory Results - last 24 hr 02/11/25 11:58: POC Glucose 257 H 02/11/25 16:39: POC Glucose 124 H 02/11/25 21:27: POC Glucose 276 H 02/12/25 06:16: POC Glucose 246 H 02/12/25 08:37: POC Glucose 312 H Micro: Microbiology 02/09/25 19:54 Mucosa - Nasopharyngeal Respiratory Panel (PCR) - Final Parainfluenza 3 Rhythm Strip Rhythm Strip: Sinus Rhythm Rate: 93 Ectopy: None Physical Exam Narrative alert, oriented x3 and no apparent distress General Appearance: cooperative, well kempt and well developed Orientation / Consciousness: awake, oriented to person, oriented to place and oriented to time HEENT normocephalic, head/scalp atraumatic and moist oral mucous membranes Eyes PERRL, EOMs intact bilaterally and conjunctivae normal Neck supple, no JVD, thyroid normal and no carotid bruits General: trachea midline Resp normal respiratory effort, no retractions and no use of accessory muscles Auscultation: wheezes expiratory wheezes and throughout; Negative for rales or rhonchi Cardio regular rate, regular rhythm, S1 normal heart sound, S2 normal heart sound, no murmurs, no rub and no gallops GI normal to inspection, nondistended, normoactive bowel sounds, soft to palpation, non-tender and non-distended Extremity no clubbing, cyanosis or edema Skin no rashes or lesions noted General Skin Exam: no breakdown Neuro oriented x3, CN's II-XII intact bilaterally, moves all extremities, no focal motor deficits and no sensory deficits noted Sensorium / Orientation: awake and alert Speech: speech normal Psych affect normal Assessment & Plan Assessment/Plan (1) COPD exacerbation: PLAN: Plan 1. Exacerbation of COPD secondary to parainfluenza 3 infection-patient will remain on aerosol treatments and IV Solu-Medrol #2 hypoxia secondary to #1-pulse ox will be monitored, oxygen will be weaned if possible #3 chronic diastolic congestive heart failure-patient will remain on IV Lasix #4 type 2 diabetes-blood sugars will be monitored, extra insulin was given today due to elevated blood sugar #5 ischemic cardiomyopathy-complicates care, management, recovery, and prognosis #6 infection with parainfluenza 3 virus-complicates care, management, recovery, and prognosis #7 constipation-again patient will be given 10 ounces of mag citrate today Total clinical time spent by myself addressing the patient's medical issues, reviewing all of her data, and collaborating with patient's care team: 35- minutes Charges/Coding Visit Charges Inpatient E&M: 93429 Subs Hosp L2
[2025-02-12] MEDS: Magnesium Citrate 300 ML PO (12:31)
[2025-02-12 12:58] LABS: Bedside Glucose 243 mg/dL (74-106)
[2025-02-12 16:48] LABS: Bedside Glucose 471 mg/dL (74-106)
[2025-02-12 16:48] LABS: Bedside Glucose 492 mg/dL (74-106)
[2025-02-12 16:59] LABS: Bedside Glucose 112 mg/dL (74-106)
[2025-02-12] MEDS: hydrOXYzine 10 MG Tablet 12.5 MG PO (22:08)
[2025-02-12] MEDS: Gabapentin 100 MG Capsule PO (22:09)
[2025-02-12 22:13] LABS: Bedside Glucose 236 mg/dL (74-106)
--- NOTE | 2025-02-13 00:22 | NURSING ---
Soap suds enema given. Pt had large hard stool results. Pt reports she feels she feels much better.
[2025-02-13 05:00] VITALS: BP 149/65; PULSE 92; RESP 18; TEMP 36.6; O2SAT 94
[2025-02-13] MEDS: Methylprednisolone Sod Succ 40 MG/ML VIAL 20 MG IV ×2 (06:15→14:33)
[2025-02-13] MEDS: Heparin Injection (Vial) 5,000 UNIT/ML VIAL 5000 UNIT SC ×2 (06:15→14:32)
[2025-02-13] MEDS: Furosemide 20 MG/2 ML VIAL IV ×2 (06:15→14:33)
[2025-02-13] MEDS: 0.9% Saline Lock 10 ML Syringe IV ×2 (06:16→14:33)
[2025-02-13 06:47] LABS: Bedside Glucose 302 mg/dL (74-106)
[2025-02-13] MEDS: Ipratropium/Albuterol Sulfate 3 ML AMPUL.NEB INHALATION (07:19)
[2025-02-13 07:20] VITALS: PULSE 82; RESP 22; O2SAT 93
[2025-02-13 07:34] VITALS: O2SAT 84; O2SAT 90; O2SAT 93
[2025-02-13 08:41] VITALS: BP 132/51; PULSE 86; RESP 16; TEMP 36.4; O2SAT 92
[2025-02-13 08:46] VITALS: PULSE 86
[2025-02-13] MEDS: Metoprolol Tartrate 25 MG Tablet PO (08:46)
[2025-02-13] MEDS: Cyanocobalamin 500 MCG Tablet 1000 MCG PO (08:47)
[2025-02-13] MEDS: Pantoprazole Sodium 40 MG Tablet PO (08:47)
[2025-02-13] MEDS: Empagliflozin 10 MG Tablet PO (08:47)
[2025-02-13] MEDS: Aspirin 81 MG TAB.CHEW PO (08:47)
[2025-02-13] MEDS: LINAGLIPTIN 5 MG TABLET PO (08:47)
[2025-02-13] MEDS: Potassium Chloride Oral Tablet 20 MEQ PO (08:48)
[2025-02-13] MEDS: dilTIAZem CD 180 MG Capsule PO (08:48)
[2025-02-13] MEDS: Pravastatin 20 MG Tablet PO (08:48)
[2025-02-13] MEDS: Loratadine 10 MG Tablet PO (08:48)
[2025-02-13] MEDS: Magnesium Chloride 64 MG Delay Rel.Tablet 128 MG PO (08:48)
[2025-02-13] MEDS: SACUBITRIL/VALSARTAN 24/26 MG TABLET 1 EACH PO (08:48)
[2025-02-13] MEDS: Insulin Lispro 100 UNIT/ML INSULN.PEN 10 UNIT SC ×2 (08:49→11:18)
[2025-02-13] MEDS: Menthol/Lanolin/Calamine/Znox 113 GM Tube 1 APPLIC TOPICAL ×2 (08:49→14:06)
[2025-02-13] MEDS: Insulin Lispro 100 UNIT/ML INSULN.PEN SC ×2 (08:50→11:19)
[2025-02-13] MEDS: Insulin Glargine-YFGN 100 UNIT/ML Pen 20 UNIT SC (08:51)
[2025-02-13] MEDS: Latanoprost 0.005% 1 Bottle 1 DRP EACH EYE (08:53)
[2025-02-13] MEDS: ROFLUMILAST 500 MCG TABLET PO (08:59)
[2025-02-13 11:40] LABS: Bedside Glucose 337 mg/dL (74-106)
--- NOTE | 2025-02-13 13:50 | CASEMGMT ---
RN CM into pt room, pt wanting back to chair. Notified pt nurse. Pt aware she will require home oxygen. Referral sent to [facility] [place] via [facility] at this time. She is aware that her HH will be restarted. TC derrick Ortiz at [facility], she is aware pt will dc today and will plan to see pt tomorrow. No further needs at this time.
[2025-02-13 14:04] VITALS: PULSE 94; RESP 20; TEMP 36.9; O2SAT 94
--- NOTE | 2025-02-13 14:15 | DCINST_ITS ---
Discharge Instructions Diet Discharge Diet: 1800 Calorie Control Diet DC O2, CPAP, BIPAP needs Home O2 Discharge instructions: Yes Type of respiratory needs?: Oxygen Oxygen frequency: Continuous Continuous oxygen liters per minute: 2 L and With Ambulation Oxygen liters per minute during Ambulation: 3 L Dressing / Incision Discharge Activity: Return to Normal Activity Weight Bearing Status: Full weight bearing Follow Up Care Test Results: Test results from this visit will be discussed in further detail at your follow- up appointment, if applicable. Discharge Plan Admission Admit Date/Time: 02/09/25 15:00 Primary Reason for Your Visit: Parainfluenza 3 viral infection, exacerbation of COPD Attending Provider: Lucio Borden Primary Care Provider: Ramone Smiley Discharge Orders/Prescriptions Prescriptions: Continued Januvia 50 mg tablet 50 mg PO DAILY Jardiance 10 mg tablet 10 mg PO DAILY multivitamin Tablet 1 tab PO DAILY pravastatin 20 mg tablet 20 mg PO DAILY aspirin 81 MG tablet,chewable 81 mg PO DAILY metoprolol tartrate 25 MG tablet 25 mg PO BID magnesium oxide 400 MG tablet 400 mg PO BID pantoprazole 40 MG tablet 40 mg PO DAILY gabapentin 100 mg capsule 100 mg PO QHS roflumilast 500 mcg tablet 500 mcg PO DAILY ascorbic acid (vitamin C) [Vitamin C] 250 mg tablet 250 mg PO DAILY insulin lispro [Humalog KwikPen Insulin] 100 unit/mL Insulin Pen 10 unit subcut TIDAC Rx Instructions: Hold if glucose less than 120 mg/dl Mounjaro 5 mg/0.5 mL pen injector 5 mg subcut QWEEK Patient Comments: PT STATES SHE SOMETIMES TAKES IT ON THURSDAY, SOMETIMES ON FRIDAYS. menthol-zinc oxide [CalaSoothe] 0.44-20.6 % ointment 1 applic topical 4X/DAY PRN (Reason: skin irritation) psyllium husk [Daily Fiber] 0.4 gram capsule 0.4 g PO DAILY mecobalamin (vitamin B12) [B12 Active] 1,000 mcg tablet,chewable 1,000 mcg PO DAILY azelastine 137 mcg (0.1 %) spray,non-aerosol 1 - 2 spray INTRANASAL BID acetaminophen 500 mg Tablet 1,000 mg PO Q6H PRN (Reason: Pain Score 1-3) Rocklatan 0.02-0.005 % Drops 1 drp EACH EYE DAILY potassium chloride [K-Tab] 20 mEq tablet extended release 20 meq PO BID ipratropium-albuterol 0.5 mg-3 mg(2.5 mg base)/3 mL Solution For Nebulization 3 ml inhalation Q6H.RT Qty: 120 0RF prednisone 10 mg tablet 10 mg PO BID Qty: 20 0RF furosemide [Lasix] 20 mg tablet 60 mg PO BID Qty: 180 0RF albuterol sulfate 90 mcg/actuation HFA aerosol inhaler 2 puff inhalation Q6H PRN (Reason: shortness of breath or wheezing) cetirizine 10 mg tablet 10 mg PO DAILY hydroxyzine HCl 25 mg tablet 12.5 mg PO QHS diltiazem HCl 180 mg capsule,ext.rel 24h degradable 180 mg PO DAILY ipratropium bromide 21 mcg (0.03 %) spray,non-aerosol 1 - 2 spray INTRANASAL Q6H PRN (Reason: allergy symptoms) insulin glargine [Lantus Solostar U-100 Insulin] 100 unit/mL (3 mL) insulin pen 20 unit subcut BID (DME) lancets [TRUEplus Lancets] 28 gauge misc MISCELLANEOUS Breztri Aerosphere 160-9-4.8 mcg/actuation HFA aerosol inhaler 2 inh inhalation BID Entresto 24-26 mg tablet 1 tab PO BID Qty: 60 11RF Discontinued spironolacton-hydrochlorothiaz 25-25 mg tablet 0.5 tab PO DAILY Referrals / Follow Up: Ramone Smiley MD [Primary Care Provider] - In 1 Week Disposition Disposition (needs filled in before D/C Order can be placed): Home, Self Care
--- NOTE | 2025-02-13 14:23 | DS.PCM_ITS ---
Providers Date of Admission: 02/09/25 Date of Discharge: 02/13/25 Primary Care Physician: Dr. Ramone Smiley MD Reason For Visit: EXACERBATION OF COPD, HYPOXIA Diagnosis Discharge Diagnosis (1) COPD exacerbation: Status: Inactive Code(s): J44.1 - Chronic obstructive pulmonary disease with (acute) exacerbation Plan 1. Exacerbation of COPD secondary to parainfluenza 3 infection-patient will remain on aerosol treatments and IV Solu-Medrol #2 hypoxia secondary to #1-pulse ox will be monitored, oxygen will be weaned if possible #3 chronic diastolic congestive heart failure-patient will remain on IV Lasix #4 type 2 diabetes-blood sugars will be monitored, extra insulin was given today due to elevated blood sugar #5 ischemic cardiomyopathy-complicates care, management, recovery, and prognosis #6 infection with parainfluenza 3 virus-complicates care, management, recovery, and prognosis #7 constipation-again patient will be given 10 ounces of mag citrate today Total clinical time spent by myself addressing the patient's medical issues, reviewing all of her data, and collaborating with patient's care team: 35- minutes Medications at Discharge Home Medications aspirin 81 mg chewable tablet 81 mg PO DAILY HEART HEALTH 01/21/16 magnesium oxide 400 mg (241.3 mg magnesium) tablet 400 mg PO BID SUPPLEMENT 08/16/18 metoprolol tartrate 25 mg tablet 25 mg PO BID BLOOD PRESSURE 08/16/18 pantoprazole 40 mg tablet,delayed release 40 mg PO DAILY ACID REFLUX 12/02/19 empagliflozin 10 mg tablet (Jardiance) 10 mg PO DAILY DIABETES 10/18/20 sitagliptin phosphate 50 mg tablet (Januvia) 50 mg PO DAILY DIABETES 10/18/20 multivitamin 1 tab PO DAILY VITAMIN 12/06/21 pravastatin 20 mg tablet 20 mg PO DAILY CHOLESTEROL 12/06/21 ascorbic acid (vitamin C) 250 mg tablet (Vitamin C) 250 mg PO DAILY SUPPLEMENT 08/13/23 gabapentin 100 mg capsule 100 mg PO QHS NERVE PAIN 08/13/23 roflumilast 500 mcg tablet 500 mcg PO DAILY COPD 08/13/23 insulin lispro 100 unit/mL subcutaneous pen (Humalog KwikPen (U-100) Insulin) 10 unit subcut TIDAC short acting insulin 12/30/23 budesonide 160 mcg-glycopyr 9 mcg-formot 4.8 mcg/actuation HFA inhaler (Breztri Aerosphere) 2 inh inhalation BID breathing 01/07/25 diltiazem HCl 180 mg capsule,extended release 24 hr, controlled 180 mg PO DAILY heart 01/07/25 insulin glargine 100 unit/mL (3 mL) subcutaneous pen (Lantus Solostar U-100 Insulin) 20 unit subcut BID diabetes 01/07/25 ipratropium bromide 21 mcg (0.03 %) nasal spray 1 - 2 spray intranasal Q6H PRN allergy symptoms 01/07/25 lancets 28 gauge (TRUEplus Lancets) 01/07/25 acetaminophen 500 mg tablet 1,000 mg PO Q6H PRN Pain Score 1-3 01/15/25 azelastine 137 mcg (0.1 %) nasal spray 1 - 2 spray intranasal BID nasal spray 01/15/25 mecobalamin (vitamin B12) 1,000 mcg chewable tablet (B12 Active) 1,000 mcg PO DAILY health maintenance 01/15/25 menthol 0.44 %-zinc oxide 20.6 % topical ointment (CalaSoothe) 1 applic topical 4X/DAY PRN skin irritation 01/15/25 netarsudil 0.02 %-latanoprost 0.005 % eye drops (Rocklatan) 1 drp EACH EYE DAILY eye drops 01/15/25 psyllium husk 0.4 gram capsule (Daily Fiber) 0.4 g PO DAILY constipation 01/15/25 tirzepatide 5 mg/0.5 mL subcutaneous pen injector (Mounjaro) 5 mg subcut QWEEK diabetes 01/15/25 potassium chloride 20 mEq tablet,extended release (K-Tab) 20 meq PO BID supplement 02/04/25 furosemide 20 mg tablet (Lasix) 60 mg (3 x 20 mg) PO BID #180 tabs 02/06/25 ipratropium 0.5 mg-albuterol 3 mg (2.5 mg base)/3 mL nebulization soln 3 ml inhalation Q6H.RT #120 amps 02/06/25 prednisone 10 mg tablet 10 mg PO BID #20 tabs 02/06/25 sacubitril 24 mg-valsartan 26 mg tablet (Entresto) 1 tab PO BID #60 tabs 02/07/25 albuterol sulfate 90 mcg/actuation aerosol inhaler 2 puff inhalation Q6H PRN shortness of breath or wheezing 02/09/25 cetirizine 10 mg tablet 10 mg PO DAILY 02/09/25 hydroxyzine HCl 25 mg tablet 12.5 mg PO QHS allergies 02/09/25 Hospital Course Operations None Procedures None Summary of Care Provided Minutes Spent on Discharge: 32 Hospital Course: This 80-year-old black female was seen in the emergency room at [facility] with complaints of shortness of breath. Patient has a history of COPD and was recently discharged from the hospital here for treatment of COPD. Workup in the emergency room included a chest x-ray which showed no evidence of pneumonic infiltration, patient required supplemental oxygen via nasal cannula to maintain her pulse ox above 90%. Patient was admitted to [place] [address] for exacerbation of COPD and treated with IV corticosteroids and aerosol treatments, respiratory panel was obtained which was positive for parainfluenza 3 virus infection. This was felt to have caused the patient's COPD exacerbation. Patient improved during her hospital stay but required home oxygen at the time of discharge. On 02/13/2025, patient was seen and examined:alert, oriented x3 and no apparent distress General Appearance: cooperative, well kempt and well developed Orientation / Consciousness: awake, oriented to person, oriented to place and oriented to time HEENT normocephalic, head/scalp atraumatic and moist oral mucous membranes Eyes PERRL, EOMs intact bilaterally and conjunctivae normal Neck supple, no JVD, thyroid normal and no carotid bruits General: trachea midline Resp normal respiratory effort, no retractions and no use of accessory muscles Auscultation: wheezes expiratory wheezes and throughout; Negative for rales or rhonchi Cardio regular rate, regular rhythm, S1 normal heart sound, S2 normal heart sound, no murmurs, no rub and no gallops GI normal to inspection, nondistended, normoactive bowel sounds, soft to palpation, non-tender and non-distended Extremity no clubbing, cyanosis or edema Skin no rashes or lesions noted General Skin Exam: no breakdown Neuro oriented x3, CN's II-XII intact bilaterally, moves all extremities, no focal motor deficits and no sensory deficits noted Sensorium / Orientation: awake and alert Speech: speech normal Psych affect normal Patient was discharged home in stable condition on 02/13/2025, she required oxygen at 2 L at rest and at 3 L when ambulating at the time of discharge home. Weight / BMI Weight Weight: 76.657 kg Body Mass Index (BMI) 29.9 ABG / Lab / Microbiology Data 02/09/25 12:23 02/10/25 05:36 Laboratory: Laboratory Results - last 24 hr 02/10/25 08:31: POC Glucose 492 H* 02/10/25 08:33: POC Glucose 471 H* 02/12/25 16:37: POC Glucose 112 H 02/12/25 21:50: POC Glucose 236 H 02/13/25 06:27: POC Glucose 302 H 02/13/25 11:17: POC Glucose 337 H Microbiology: Microbiology 02/09/25 19:54 Mucosa - Nasopharyngeal Respiratory Panel (PCR) - Final Parainfluenza 3 D/C Instructions Discharge Diet: 1800 Calorie Control Diet Weight Bearing Status: Full weight bearing DC O2, CPAP, BIPAP Needs Home O2 Discharge instructions: Yes Type of respiratory needs?: Oxygen Oxygen frequency: Continuous Continuous oxygen liters per minute: 2 L and With Ambulation Oxygen liters per minute during Ambulation: 3 L DC home with Oxygen: Yes Home O2 MD Review: I have reviewed the oxygen testing, and the patient qualifies for home oxygen equipment and portability. The patient is mobile in the home and the community. Meaningful Use Info Meaningful Use Meaningful Use Diagnoses (Choose all that apply): None applicable Ischemic Stroke Statin Dosing Therapy Reference: STATIN DOSE THERAPY REFERENCE: * Patients > 75 years receive moderate or high dose statin therapy. * Patients 75 years or YOUNGER should receive HIGH intensity statin dose unless contraindicated. You will be required to document reason for non-treatment if statin daily dose does not meet guidelines. HIGH DOSE STATIN THERAPY DAILY Atorvastatin > than or = to 40 mg Rosuvastatin > than or = to 20 mg Amlodipine + Atorvastatin > than or = to 2.5/40 mg Ezetimibe + Simvastatin 10/80 mg Simvastatin 80mg Discharge Plan Admission Admit Date/Time: 02/09/25 15:00 Primary Reason for Your Visit: Parainfluenza 3 viral infection, exacerbation of COPD Attending Provider: Lucio Borden Primary Care Provider: Ramone Smiley Discharge Orders/Prescriptions Prescriptions: Continued Januvia 50 mg tablet 50 mg PO DAILY Jardiance 10 mg tablet 10 mg PO DAILY multivitamin Tablet 1 tab PO DAILY pravastatin 20 mg tablet 20 mg PO DAILY aspirin 81 MG tablet,chewable 81 mg PO DAILY metoprolol tartrate 25 MG tablet 25 mg PO BID magnesium oxide 400 MG tablet 400 mg PO BID pantoprazole 40 MG tablet 40 mg PO DAILY gabapentin 100 mg capsule 100 mg PO QHS roflumilast 500 mcg tablet 500 mcg PO DAILY ascorbic acid (vitamin C) [Vitamin C] 250 mg tablet 250 mg PO DAILY insulin lispro [Humalog KwikPen Insulin] 100 unit/mL Insulin Pen 10 unit subcut TIDAC Rx Instructions: Hold if glucose less than 120 mg/dl Mounjaro 5 mg/0.5 mL pen injector 5 mg subcut QWEEK Patient Comments: PT STATES SHE SOMETIMES TAKES IT ON THURSDAY, SOMETIMES ON FRIDAYS. menthol-zinc oxide [CalaSoothe] 0.44-20.6 % ointment 1 applic topical 4X/DAY PRN (Reason: skin irritation) psyllium husk [Daily Fiber] 0.4 gram capsule 0.4 g PO DAILY mecobalamin (vitamin B12) [B12 Active] 1,000 mcg tablet,chewable 1,000 mcg PO DAILY azelastine 137 mcg (0.1 %) spray,non-aerosol 1 - 2 spray INTRANASAL BID acetaminophen 500 mg Tablet 1,000 mg PO Q6H PRN (Reason: Pain Score 1-3) Rocklatan 0.02-0.005 % Drops 1 drp EACH EYE DAILY potassium chloride [K-Tab] 20 mEq tablet extended release 20 meq PO BID ipratropium-albuterol 0.5 mg-3 mg(2.5 mg base)/3 mL Solution For Nebulization 3 ml inhalation Q6H.RT Qty: 120 0RF prednisone 10 mg tablet 10 mg PO BID Qty: 20 0RF furosemide [Lasix] 20 mg tablet 60 mg PO BID Qty: 180 0RF albuterol sulfate 90 mcg/actuation HFA aerosol inhaler 2 puff inhalation Q6H PRN (Reason: shortness of breath or wheezing) cetirizine 10 mg tablet 10 mg PO DAILY hydroxyzine HCl 25 mg tablet 12.5 mg PO QHS diltiazem HCl 180 mg capsule,ext.rel 24h degradable 180 mg PO DAILY ipratropium bromide 21 mcg (0.03 %) spray,non-aerosol 1 - 2 spray INTRANASAL Q6H PRN (Reason: allergy symptoms) insulin glargine [Lantus Solostar U-100 Insulin] 100 unit/mL (3 mL) insulin pen 20 unit subcut BID (DME) lancets [TRUEplus Lancets] 28 gauge misc MISCELLANEOUS Breztri Aerosphere 160-9-4.8 mcg/actuation HFA aerosol inhaler 2 inh inhalation BID Entresto 24-26 mg tablet 1 tab PO BID Qty: 60 11RF Discontinued spironolacton-hydrochlorothiaz 25-25 mg tablet 0.5 tab PO DAILY Referrals / Follow Up: Ramone Smiley MD [Primary Care Provider] - 02/21/25 11:50 am Disposition Disposition (needs filled in before D/C Order can be placed): Home, Self Care Charges/Coding Visit Charges Inpatient E&M: 98227 Disch Hosp >30min
== END 2025-02-13 16:28 | disposition home or self-care (01) | DRG 191 ==
LOC: ED 15:01 → MS3 15:59
PROVIDERS: Admitting Provider Internal Medicine; Emergency Provider Emergency Medicine; PCP Family Medicine; Visit Provider Internal Medicine
DX: J44.1 Chronic obstructive pulmonary disease with (acute) exacerbation (principal); I13.0 Hypertensive heart and chronic kidney disease with heart failure and stage 1 through stage 4 chronic kidney disease, or unspecified chronic kidney disease; I50.32 Chronic diastolic (congestive) heart failure; E11.22 Type 2 diabetes mellitus with diabetic chronic kidney disease; I25.5 Ischemic cardiomyopathy; N18.30 Chronic kidney disease, stage 3 unspecified; J04.0 Acute laryngitis; Z79.4 Long term (current) use of insulin; K21.9 Gastro-esophageal reflux disease without esophagitis; E78.5 Hyperlipidemia, unspecified; I25.10 Atherosclerotic heart disease of native coronary artery without angina pectoris; E11.51 Type 2 diabetes mellitus with diabetic peripheral angiopathy without gangrene; E11.65 Type 2 diabetes mellitus with hyperglycemia; Z79.85 Long-term (current) use of injectable non-insulin antidiabetic drugs; Z87.891 Personal history of nicotine dependence; Z79.84 Long term (current) use of oral hypoglycemic drugs; R79.89 Other specified abnormal findings of blood chemistry; Z79.51 Long term (current) use of inhaled steroids; Z79.899 Other long term (current) drug therapy
CPT/HCPCS: 36415; 71046; 80048; 80053; 82962; 83880; 84484; 85025; 87633; 93005; 94640; 97162; 97530; 97802; 99285; A4216; J1938

== ENCOUNTER 2025-02-15 08:36 | Observation (INO) | payer MEDICARE, SELFPAY ==
[2025-02-15] VITALS (10 sets, daily range): BP systolic 110–151; BP diastolic 43–61; PULSE 98–112; RESP 16–30; TEMP 36.4–37.6; O2SAT 84–98; BMI 30.4; BMI 26.9
--- NOTE | 2025-02-15 09:19 | EKG12_ITS ---
Test Reason : sob Blood Pressure : */* mmHG Vent. Rate : 106 BPM Atrial Rate : 106 BPM P-R Int : 122 ms QRS Dur : 78 ms QT Int : 328 ms P-R-T Axes : 69 28 86 degrees QTcB Int : 435 ms Sinus tachycardia Nonspecific ST and T wave abnormality Abnormal ECG Confirmed by DEBORAH LEARY, KHRIS ([id number]), art editor MIKE MATTHEW ([id number]) on 02/17/2025 12:55:36 PM Referred By: Confirmed By: KHRIS CABRERA MD
--- NOTE | 2025-02-15 09:21 | ED.VIS.DYS ---
HPI History of Present Illness Chief Complaint: Shortness of Breath Detail of Chief Complaint: Shortness of breath Informant: patient Narrative Narrative: Patient presents with shortness of breath that started yesterday. She was just discharged from the hospital 2 days ago for dyspnea and hypoxemia. She was diagnosed with COPD exacerbation and parainfluenza infection at that time. Patient states that she wears 2 to 3 L of O2 at all times. This morning she dropped her oxygen and could not reach it and when she called her he was hard of hearing and had a hard time getting him to respond. EMS found patient to be 82% on room air. She does have a cough. Denies fever or chest pain. [facility] Medical History (Updated 02/15/25 @ 13:[address] Robetr Allison, ) History of diabetes mellitus COPD exacerbation Hypoxia Elevated troponin Acute dyspnea Poor venous access Diabetic polyneuropathy Hypomagnesemia Debility Weakness Gastroenteritis Abscess Postmenopausal bleeding GERD (gastroesophageal reflux disease) COPD (chronic obstructive pulmonary disease) History of constipation Asthma Osteoporosis COPD with exacerbation Anemia History of COPD Elevated brain natriuretic peptide (BNP) level Elevated troponin Acute hypoxemic respiratory failure Obesity (BMI 30.0-34.9) Elevated troponin Lactic acidosis Fracture of hip, left, closed Coronary artery disease Paronychia of left index finger Vaginal cyst Anxiety Depression Irregular heart beat Multiple thyroid nodules Foraminal stenosis of lumbar region Lumbar spinal stenosis Diabetic retinopathy Colon polyp Thyroid goiter Hyperlipidemia Hypokalemia Microcytic anemia Neurogenic bladder Hypophosphatemia Hypercalcemia Former smoker UTI (urinary tract infection) Iron deficiency anemia Aortic stenosis Hyponatremia Urine retention Chronic renal failure, stage 3 (moderate) Cellulitis and abscess of finger, unspecified Retinopathy Peripheral artery disease Leg weakness, bilateral GERD (gastroesophageal reflux disease) Chronic idiopathic constipation COPD (chronic obstructive pulmonary disease) Polypharmacy Hypertension Carpal tunnel syndrome of right wrist Strain of right rotator cuff capsule Rhinitis Urinary retention with incomplete bladder emptying Vitamin D deficiency Asthma Pruritus Goiter, nontoxic, multinodular Anemia Diabetes Hx of venous thrombosis and embolism History of malignant neoplasm of breast Hypertension Type 2 diabetes mellitus Home Medications ?Medication ?Instructions ?Recorded ?Last Taken ?Type aspirin 81 mg chewable tablet 81 mg PO DAILY HEART HEALTH 01/21/16 01/15/25 History magnesium oxide 400 mg (241.3 mg 400 mg PO BID SUPPLEMENT 08/16/18 01/15/25 History magnesium) tablet metoprolol tartrate 25 mg tablet 25 mg PO BID BLOOD PRESSURE 08/16/18 01/15/25 History pantoprazole 40 mg tablet,delayed 40 mg PO DAILY ACID REFLUX 12/02/19 01/15/25 History release empagliflozin 10 mg tablet 10 mg PO DAILY DIABETES 10/18/20 01/15/25 History (Jardiance) sitagliptin phosphate 50 mg tablet 50 mg PO DAILY DIABETES 10/18/20 01/15/25 History (Januvia) multivitamin 1 tab PO DAILY VITAMIN 12/06/21 01/15/25 History pravastatin 20 mg tablet 20 mg PO DAILY CHOLESTEROL 12/06/21 01/15/25 History ascorbic acid (vitamin C) 250 mg 250 mg PO DAILY SUPPLEMENT 08/13/23 01/15/25 History tablet (Vitamin C) gabapentin 100 mg capsule 100 mg PO QHS NERVE PAIN 08/13/23 01/14/25 History roflumilast 500 mcg tablet 500 mcg PO DAILY COPD 08/13/23 01/15/25 History insulin lispro 100 unit/mL 10 unit subcut TIDAC short acting 12/30/23 01/15/25 History subcutaneous pen (Humalog KwikPen insulin (U-100) Insulin) budesonide 160 mcg-glycopyr 9 2 inh inhalation BID breathing 01/07/25 01/15/25 History mcg-formot 4.8 mcg/actuation HFA inhaler (Breztri Aerosphere) diltiazem HCl 180 mg 180 mg PO DAILY heart 01/07/25 01/15/25 History capsule,extended release 24 hr, controlled insulin glargine 100 unit/mL (3 20 unit subcut BID diabetes 01/07/25 01/15/25 History mL) subcutaneous pen (Lantus Solostar U-100 Insulin) ipratropium bromide 21 mcg (0.03 1 - 2 spray intranasal Q6H PRN 01/07/25 Unknown History %) nasal spray allergy symptoms lancets 28 gauge (TRUEplus Lancets) 01/07/25 Unknown History acetaminophen 500 mg tablet 1,000 mg PO Q6H PRN Pain Score 1-3 01/15/25 Unknown History azelastine 137 mcg (0.1 %) nasal 1 - 2 spray intranasal BID nasal 01/15/25 01/15/25 History spray spray mecobalamin (vitamin B12) 1,000 1,000 mcg PO DAILY health 01/15/25 01/15/25 History mcg chewable tablet (B12 Active) maintenance menthol 0.44 %-zinc oxide 20.6 % 1 applic topical 4X/DAY PRN skin 01/15/25 Unknown History topical ointment (CalaSoothe) irritation netarsudil 0.02 %-latanoprost 1 drp EACH EYE DAILY eye drops 01/15/25 01/15/25 History 0.005 % eye drops (Rocklatan) psyllium husk 0.4 gram capsule 0.4 g PO DAILY constipation 01/15/25 01/15/25 History (Daily Fiber) tirzepatide 5 mg/0.5 mL 5 mg subcut QWEEK diabetes 01/15/25 Unknown History subcutaneous pen injector (Prabhu) potassium chloride 20 mEq 20 meq PO BID supplement 02/04/25 Unknown History tablet,extended release (K-Tab) furosemide 20 mg tablet (Lasix) 60 mg (3 x 20 mg) PO BID #180 tabs 02/06/25 Unknown Rx ipratropium 0.5 mg-albuterol 3 mg 3 ml inhalation Q6H.RT #120 amps 02/06/25 Unknown Rx (2.5 mg base)/3 mL nebulization soln prednisone 10 mg tablet 10 mg PO BID #20 tabs 02/06/25 Unknown Rx sacubitril 24 mg-valsartan 26 mg 1 tab PO BID #60 tabs 02/07/25 Unknown Rx tablet (Entresto) albuterol sulfate 90 mcg/actuation 2 puff inhalation Q6H PRN 02/09/25 Unknown History aerosol inhaler shortness of breath or wheezing cetirizine 10 mg tablet 10 mg PO DAILY 02/09/25 Unknown History hydroxyzine HCl 25 mg tablet 12.5 mg PO QHS allergies 02/09/25 Unknown History Allergy/AdvReac Type Severity Reaction Status Date / Time adhesive tape (tape) Allergy NEEDS Verified 02/09/25 11:59 FOLLOW-UP cephalexin monohydrate (From Allergy Rash Verified 02/09/25 11:59 Keflex) clopidogrel bisulfate (From Allergy Other Verified 02/09/25 11:59 Plavix) amoxicillin AdvReac YEAST Verified 02/09/25 11:59 INFECTION Family History Daughter Breast cancer Father Hypertension Sister Cancer Kidney disease Mother Pancreatic cancer Surgical History (Updated 02/14/25 @ 00:01 by Background Татьяна) History of left hip hemiarthroplasty S/P fine needle aspiration (~10/2020) H/O dilation and curettage (~07/10/20) History of Achilles tendon repair Retinopathy History of lumpectomy of left breast Social History household members: spouse Smoking Status: Former smoker alcohol intake: never substance use type: does not use caffeine: Yes what type of physical activity do you participate in: none seatbelt use: always do you feel safe at home: Yes additional social history: [employer]- retired ROS ROS ED Review of Systems ROS Unobtainable: other Constitutional Constitutional ED: Reports lethargy; Denies chills, fever(s), sweats or weight loss Eyes Eyes: Denies blurry vision, change in vision or diplopia ENT ENT ED: Denies rhinorrhea or sore throat Cardiovascular Cardiovascular: Denies chest pain, orthopnea or racing heartbeat Respiratory/Chest Respiratory/Chest: Reports cough, dyspnea and dyspnea on exertion; Denies orthopnea or sputum Gastrointestinal Gastrointestinal: Denies abdominal pain, diarrhea, nausea or vomiting Genitourinary Genitourinary ED: Denies dysuria, hematuria or urinary frequency Musculoskeletal Musculoskeletal: Denies arthralgias, back pain, myalgias or neck pain Integumentary Denies abscess, Abrasions or rash Neurologic Neurologic: Denies headache(s) or weakness Psychiatric Psychiatric: Denies anxiety, depression or suicidal thoughts Endocrine Endocrinology: Denies polydipsia, polyphagia or polyuria Hematologic/Lymphatic Hematologic/Lymphatic: Denies easy bleeding, easy bruising or lymphadenopathy Allergic/Immunologic Allergic/Immunologic ED: Denies mouth swelling, tongue swelling or urticaria EXAM Physical Exam Const Vital Signs: 02/15/25 08:36 02/15/25 08:36 02/15/25 09:26 Temperature 98.6 F Temperature Source Oral Pulse Rate 112 H 98 Respiratory Rate 22 H 17 Respiratory Effort Short of Breath Labored Respiratory Depth Shallow Respiratory Pattern Tachypnea Normal Blood Pressure 111/61 Blood Pressure Mean 77 Pulse Ox 92 Oxygen Delivery Method Room Air Oxygen Flow Rate (L/min) 02/15/25 11:00 02/15/25 11:19 02/15/25 11:19 Temperature 99.5 F H Temperature Source Oral Pulse Rate 105 H Respiratory Rate 30 H Respiratory Effort Respiratory Depth Respiratory Pattern Blood Pressure 120/49 L Blood Pressure Mean 72 Pulse Ox 84 97 Oxygen Delivery Method Room Air Room Air Nasal Cannula Oxygen Flow Rate (L/min) 3 02/15/25 11:52 02/15/25 13:54 02/15/25 13:54 Temperature 99.6 F H 99.6 F H Temperature Source Oral Pulse Rate 103 H 99 98 Respiratory Rate 26 H 24 H 22 H Respiratory Effort Respiratory Depth Respiratory Pattern Blood Pressure 123/57 H 110/53 L 110/53 L Blood Pressure Mean 79 72 72 Pulse Ox 97 97 98 Oxygen Delivery Method Nasal Cannula Nasal Cannula Oxygen Flow Rate (L/min) 3 3 Positive well nourished and well developed General Appearance ED: well developed and NAD HEENT Reports TM's clear and moist mucous membranes normocephalic and atraumatic; Negative for trauma or tenderness Tympanic Membrane ED: Yes TM's clear Eyes PERRL and EOMs intact bilaterally General Eye ED: Negative for pale conjunctiva or scleral icterus Neck no lymphadenopathy, supple and no JVD General: Negative for tenderness Chest Wall inspection of chest normal and palpation of chest normal Chest: Negative for tenderness Resp normal respiratory effort and No clear to auscultation bilaterally Resp Narrative: Course breath sounds bilaterally with some rhonchi and faint expiratory wheezes. Mild tachypnea. No handbag finisher muscles or retractions Effort and Inspection: Negative for respiratory distress or pain with movement Auscultation: Negative for rhonchi, wheezes or diminished lung sounds Cardio regular rhythm, S1 normal heart sound, S2 normal heart sound and no murmurs; Negative for regular rate Rate: tachycardic Peripheral Pulses: pulses 2+ throughout GI normal to inspection, nondistended, normoactive bowel sounds, soft to palpation, non-tender, non-distended and no masses Back/Spine no CVA tenderness and no thoracic nor lumbar tenderness Extremity normal to inspection General Extremety ED: Negative for edema General Extremity: Negative for edema Neuro oriented x3, CN's II-XII intact bilaterally, no sensory deficits noted and gait normal Sensorium / Orientation: awake, alert, oriented to person, oriented to place and oriented to time Motor Exam: strength 5/5 throughout and strength abnormal Psych mental status grossly normal Skin no rashes or lesions noted and no wounds MDM MDM MDM Narrative Medical decision making narrative: Patient presents with dyspnea after dropping her oxygen today. Was unable to reach it. Presents via EMS. Recent admission for parainfluenza pneumonia and COPD exacerbation. Patient was given a DuoNeb aerosol on arrival. IV line established which was difficult. CBC with differential obtained showed white count of 9.0 with hemoglobin 10.1 and platelet count of 243. Chemistries unremarkable. 124 creatinine 1.04. Troponin was elevated at 117 but noting that she chronically has this type of elevation. [employer] also elevated 4408 however this is significantly lower than during admission. Patient also was noted that during admission she had a CTA of the chest that showed no evidence of infiltrate or PE. On 3 L patient is satting well in the mid 90s. Patient comfortable going home with her oxygen. I do not think she needs any further workup and I do not think she needs admission again. Prior to discharge her son arrived to the ER and noted that she has had multiple admissions in last 2 months and multiple visits to the ER. They are requesting placement to rehab facility. cushion worker saw patient and asked that we admit patient for placement. Will discuss with hospitalist. Lab Data Attestation: I reviewed the patient's lab results. Labs: Laboratory Results - last 24 hr 02/15/25 02/15/25 10:55 12:35 WBC 9.0 RBC 3.74 L Hgb 10.1 L Hct 33.5 L MCV 89.6 MCH 27.0 MCHC 30.1 L RDW Std Deviation 52.9 H RDW Coeff of Vijay 16.2 H Plt Count 243 MPV 10.4 Immature Gran % (Auto) 1.000 H Neut % (Auto) 82.5 H Lymph % (Auto) 10.9 L [place] % (Auto) 4.8 Eos % (Auto) 0.7 Baso % (Auto) 0.1 Absolute Neuts (auto) 7.5 Absolute Lymphs (auto) 0.98 Nucleated RBC % 0 Sodium 138 Potassium 4.3 Chloride 98 Carbon Dioxide 30.9 Anion Gap 9 BUN 24 H Creatinine 1.04 Estim Creat Clear Calc 41.98 L Est GFR (MDRD) Non-Af 54 L BUN/Creatinine Ratio 23.1 H Glucose 97 Calcium 10.7 Troponin T High Sens 117 H* Troponin T Hi Sens 2 Hr 113 H* NT pro BNP II 4408 H Radiography Diagnostic Testing: Clinical Impression(s) from Imaging Studies Chest X-Ray 02/15/25 12:15 IMPRESSION: No convincing radiographic evidence of acute cardiopulmonary process. Reading Location: [facility] 1 view chest x-ray obtained interpreted myself as no evidence of infiltrate or pneumothorax or acute disease process. Radiology in agreement. EKG Initial EKG: Attestation: I personally reviewed and interpreted this EKG as follows: Comments: Sinus rhythm with ventricular rate of [address] changes Discharge Plan Triage Chief Complaint: Shortness of Breath ED Provider: Robert Allison Dx/Rx/DC Orders Clinical Impression: Dyspnea, COPD exacerbation Instructions: ED COPD Flare, ED Dyspnea Prescriptions: No Action Januvia 50 mg tablet 50 mg PO DAILY Jardiance 10 mg tablet 10 mg PO DAILY multivitamin Tablet 1 tab PO DAILY pravastatin 20 mg tablet 20 mg PO DAILY aspirin 81 MG tablet,chewable 81 mg PO DAILY metoprolol tartrate 25 MG tablet 25 mg PO BID magnesium oxide 400 MG tablet 400 mg PO BID pantoprazole 40 MG tablet 40 mg PO DAILY gabapentin 100 mg capsule 100 mg PO QHS roflumilast 500 mcg tablet 500 mcg PO DAILY ascorbic acid (vitamin C) [Vitamin C] 250 mg tablet 250 mg PO DAILY insulin lispro [Humalog KwikPen Insulin] 100 unit/mL Insulin Pen 10 unit subcut TIDAC Rx Instructions: Hold if glucose less than 120 mg/dl Mounjaro 5 mg/0.5 mL pen injector 5 mg subcut QWEEK Patient Comments: PT STATES SHE SOMETIMES TAKES IT ON THURSDAY, SOMETIMES ON FRIDAYS. menthol-zinc oxide [CalaSoothe] 0.44-20.6 % ointment 1 applic topical 4X/DAY PRN (Reason: skin irritation) psyllium husk [Daily Fiber] 0.4 gram capsule 0.4 g PO DAILY mecobalamin (vitamin B12) [B12 Active] 1,000 mcg tablet,chewable 1,000 mcg PO DAILY azelastine 137 mcg (0.1 %) spray,non-aerosol 1 - 2 spray INTRANASAL BID acetaminophen 500 mg Tablet 1,000 mg PO Q6H PRN (Reason: Pain Score 1-3) Rocklatan 0.02-0.005 % Drops 1 drp EACH EYE DAILY potassium chloride [K-Tab] 20 mEq tablet extended release 20 meq PO BID ipratropium-albuterol 0.5 mg-3 mg(2.5 mg base)/3 mL Solution For Nebulization 3 ml inhalation Q6H.RT Qty: 120 0RF prednisone 10 mg tablet 10 mg PO BID Qty: 20 0RF furosemide [Lasix] 20 mg tablet 60 mg PO BID Qty: 180 0RF albuterol sulfate 90 mcg/actuation HFA aerosol inhaler 2 puff inhalation Q6H PRN (Reason: shortness of breath or wheezing) cetirizine 10 mg tablet 10 mg PO DAILY hydroxyzine HCl 25 mg tablet 12.5 mg PO QHS diltiazem HCl 180 mg capsule,ext.rel 24h degradable 180 mg PO DAILY ipratropium bromide 21 mcg (0.03 %) spray,non-aerosol 1 - 2 spray INTRANASAL Q6H PRN (Reason: allergy symptoms) insulin glargine [Lantus Solostar U-100 Insulin] 100 unit/mL (3 mL) insulin pen 20 unit subcut BID (DME) lancets [TRUEplus Lancets] 28 gauge misc MISCELLANEOUS Breztri Aerosphere 160-9-4.8 mcg/actuation HFA aerosol inhaler 2 inh inhalation BID Entresto 24-26 mg tablet 1 tab PO BID Qty: 60 11RF Primary Care Provider: Ramone Smiley Referrals: Ramone Smiley MD [Primary Care Provider] - 3-5 Days Print Language: Citizen Of [place] Disposition Disposition: Acute Care Hospital [facility]
[2025-02-15] MEDS: Ipratropium/Albuterol Sulfate 3 ML AMPUL.NEB INHALATION ×2 (09:26→19:10)
[2025-02-15 11:05] LABS: Absolute Lymphocyte Count 0.98 X10^3/uL (0.83-4.51); Absolute Neutrophil Count 7.5 X10^3/uL (2.0-7.7); Basophil# 0.01 X10^3/uL; Basophil% 0.1 % (0-1); Eosinophil# 0.06 X10^3/uL; Eosinophils% 0.7 % (0-5); Hematocrit 33.5 % (37-47); Hemoglobin 10.1 g/dL (12.0-15.0); Lymphocyte # 0.98 X10^3/ul (0.83-4.51); Lymphocyte % 10.9 % (19-41); Mean Corp Hgb Conc 30.1 g/dL (32-36); Mean Corpuscular Volume 89.6 fL (81-99); Mean Platelet Vol. 10.4 fl (6.2-12.0); Monocyte# 0.43 X10^3/uL; Monocyte% 4.8 % (0-10); NRBC Flagged by Analyzer 0 % (0-5); Neutrophil # 7.46 X10^3/uL (2.7-7.7); Neutrophil % 82.5 % (47-70); Platelet Count 243 K/mm3 (150-450); RBC Distribution Width CV 16.2 % (11.6-14.6); RBC Distribution Width SD 52.9 fl (35.1-43.9); Red Blood Count 3.74 M/mm3 (4.2-5.4)
[2025-02-15 11:40] LABS: Anion Gap 9 (5-15); BUN 24 mg/dL (4-19); BUN/Creat Ratio 23.1 RATIO (10-20); Calcium,Total 10.7 mg/dL (7.6-11.0); Carbon Dioxide 30.9 mmol/L (21.0-32.0); Chloride 98 mmol/L (98-108); Creatinine, Serum 1.04 mg/dL (0.70-1.20); EST Glomerular Filtration Rate 54 (>60); Estimated Creatinine Clearance 41.98 ml/min (50-250); Glucose 97 mg/dL (70-99); Potassium 4.3 mmol/L (3.3-5.1); Sodium Level 138 mmol/L (133-145)
[2025-02-15 11:48] LABS: Pro- Brain NATRIURETIC PEPTIDE 4408 pg/mL (<=1800); Troponin T High Sensitivity 117 ng/L (<=14)
--- NOTE | 2025-02-15 11:58 | ED.RN ---
spoke with for patient update.
--- NOTE | 2025-02-15 12:15 | RAD_ITS ---
PROCEDURE: CHEST 1 VIEW (PORTABLE) 02/15/2025 REASON FOR EXAM: DYSPNEA TECHNIQUE: Frontal view of the chest. COMPARISON: Chest radiograph 0 02 09 2025 FINDINGS: Hardware: EKG lead wires. Heart: Upper limits normal in size. Lungs: No consolidating airspace disease detected. Low lung volumes limit sensitivity. No pleural effusion. Bones: No aggressive lesions identified. Other: RAD/Chest 1 View (Portable) IMPRESSION: No convincing radiographic evidence of acute cardiopulmonary process. Reading Location: [facility]
[2025-02-15 13:15] LABS: Troponin T High Sens 2 HR 113 ng/L (<=14)
--- NOTE | 2025-02-15 14:01 | PCM.HP.STD ---
HPI - General General Date of Admission: 02/15/25 Date of Service: 02/15/25 Chief Complaint: Shortness of breath, acute on chronic debility HPI Narrative OLGA DONALDSON, is a 80 F who presented to [facility] ED on 02/15/2025 with shortness of breath and worsening ability. Patient was recently hospitalized here from 02/10-02/13 for COPD exacerbation secondary to parainfluenza 3 virus. She was also hospitalized in late December and early January for COPD and CHF exacerbations. She was discharged home with home health care on 02/13. She lives at home with her and son. She has remained very fatigued at home with limited functional status and today she felt more short of breath despite being on supplemental oxygen that she did the previous 2 days. She noted that her pulse ox was reading in the low 80s. She has been using her breathing treatments as normal with mild to moderate relief of symptoms at home. Has also been taking her Lasix as prescribed with reported good urine output. In the ED today she did have a low-grade temp of 99.7F and mild sinus tachycardia to the 100s. She otherwise was breathing comfortably on 3 L nasal cannula at rest. Chest x-ray was unremarkable and improved from previous. BNP 4400 but this notably is improved from 9600 on 02/09. Plan was to discharge patient home but patient family noted that they had difficulty caring for her at home and would like SNF placement on discharge. Hospitalist was then contacted for admission. I saw the patient at bedside in the ED. She was fatigued appearing and did have crackles noted in her upper airways bilaterally with wet cough noted. However she otherwise was breathing comfortably on 3 L nasal cannula at rest. On chart review, had borderline therapy scores on previous admission with 6 click score of 21 but initial ambulation distance of only 40 feet. She denies any fevers or chills, chest pain or shortness of breath currently. Will be admitted for further management. COUNTS INCLUDE 234 BEDS AT THE [facility] Medical History (Updated 02/15/25 @ 13:[address] Robert Allison DO) History of diabetes mellitus COPD exacerbation Hypoxia Elevated troponin Acute dyspnea Poor venous access Diabetic polyneuropathy Hypomagnesemia Debility Weakness Gastroenteritis Abscess Postmenopausal bleeding GERD (gastroesophageal reflux disease) COPD (chronic obstructive pulmonary disease) History of constipation Asthma Osteoporosis COPD with exacerbation Anemia History of COPD Elevated brain natriuretic peptide (BNP) level Elevated troponin Acute hypoxemic respiratory failure Obesity (BMI 30.0-34.9) Elevated troponin Lactic acidosis Fracture of hip, left, closed Coronary artery disease Paronychia of left index finger Vaginal cyst Anxiety Depression Irregular heart beat Multiple thyroid nodules Foraminal stenosis of lumbar region Lumbar spinal stenosis Diabetic retinopathy Colon polyp Thyroid goiter Hyperlipidemia Hypokalemia Microcytic anemia Neurogenic bladder Hypophosphatemia Hypercalcemia Former smoker UTI (urinary tract infection) Iron deficiency anemia Aortic stenosis Hyponatremia Urine retention Chronic renal failure, stage 3 (moderate) Cellulitis and abscess of finger, unspecified Retinopathy Peripheral artery disease Leg weakness, bilateral GERD (gastroesophageal reflux disease) Chronic idiopathic constipation COPD (chronic obstructive pulmonary disease) Polypharmacy Hypertension Carpal tunnel syndrome of right wrist Strain of right rotator cuff capsule Rhinitis Urinary retention with incomplete bladder emptying Vitamin D deficiency Asthma Pruritus Goiter, nontoxic, multinodular Anemia Diabetes Hx of venous thrombosis and embolism History of malignant neoplasm of breast Hypertension Type 2 diabetes mellitus Home Medications ?Medication ?Instructions ?Recorded ?Last Taken ?Type aspirin 81 mg chewable tablet 81 mg PO DAILY HEART HEALTH 01/21/16 01/15/25 History magnesium oxide 400 mg (241.3 mg 400 mg PO BID SUPPLEMENT 08/16/18 01/15/25 History magnesium) tablet metoprolol tartrate 25 mg tablet 25 mg PO BID BLOOD PRESSURE 08/16/18 01/15/25 History pantoprazole 40 mg tablet,delayed 40 mg PO DAILY ACID REFLUX 12/02/19 01/15/25 History release empagliflozin 10 mg tablet 10 mg PO DAILY DIABETES 10/18/20 01/15/25 History (Jardiance) sitagliptin phosphate 50 mg tablet 50 mg PO DAILY DIABETES 10/18/20 01/15/25 History (Januvia) multivitamin 1 tab PO DAILY VITAMIN 12/06/21 01/15/25 History pravastatin 20 mg tablet 20 mg PO DAILY CHOLESTEROL 12/06/21 01/15/25 History ascorbic acid (vitamin C) 250 mg 250 mg PO DAILY SUPPLEMENT 08/13/23 01/15/25 History tablet (Vitamin C) gabapentin 100 mg capsule 100 mg PO QHS NERVE PAIN 08/13/23 01/14/25 History roflumilast 500 mcg tablet 500 mcg PO DAILY COPD 08/13/23 01/15/25 History insulin lispro 100 unit/mL 10 unit subcut TIDAC short acting 12/30/23 01/15/25 History subcutaneous pen (Humalog KwikPen insulin (U-100) Insulin) budesonide 160 mcg-glycopyr 9 2 inh inhalation BID breathing 01/07/25 01/15/25 History mcg-formot 4.8 mcg/actuation HFA inhaler (Breztri Aerosphere) diltiazem HCl 180 mg 180 mg PO DAILY heart 01/07/25 01/15/25 History capsule,extended release 24 hr, controlled insulin glargine 100 unit/mL (3 20 unit subcut BID diabetes 01/07/25 01/15/25 History mL) subcutaneous pen (Lantus Solostar U-100 Insulin) ipratropium bromide 21 mcg (0.03 1 - 2 spray intranasal Q6H PRN 01/07/25 Unknown History %) nasal spray allergy symptoms lancets 28 gauge (TRUEplus Lancets) 01/07/25 Unknown History acetaminophen 500 mg tablet 1,000 mg PO Q6H PRN Pain Score 1-3 01/15/25 Unknown History azelastine 137 mcg (0.1 %) nasal 1 - 2 spray intranasal BID nasal 01/15/25 01/15/25 History spray spray mecobalamin (vitamin B12) 1,000 1,000 mcg PO DAILY health 01/15/25 01/15/25 History mcg chewable tablet (B12 Active) maintenance menthol 0.44 %-zinc oxide 20.6 % 1 applic topical 4X/DAY PRN skin 01/15/25 Unknown History topical ointment (CalaSoothe) irritation netarsudil 0.02 %-latanoprost 1 drp EACH EYE DAILY eye drops 01/15/25 01/15/25 History 0.005 % eye drops (Rocklatan) psyllium husk 0.4 gram capsule 0.4 g PO DAILY constipation 01/15/25 01/15/25 History (Daily Fiber) tirzepatide 5 mg/0.5 mL 5 mg subcut QWEEK diabetes 01/15/25 Unknown History subcutaneous pen injector (Mounjaro) potassium chloride 20 mEq 20 meq PO BID supplement 02/04/25 Unknown History tablet,extended release (K-Tab) furosemide 20 mg tablet (Lasix) 60 mg (3 x 20 mg) PO BID #180 tabs 02/06/25 Unknown Rx ipratropium 0.5 mg-albuterol 3 mg 3 ml inhalation Q6H.RT #120 amps 02/06/25 Unknown Rx (2.5 mg base)/3 mL nebulization soln prednisone 10 mg tablet 10 mg PO BID #20 tabs 02/06/25 Unknown Rx sacubitril 24 mg-valsartan 26 mg 1 tab PO BID #60 tabs 02/07/25 Unknown Rx tablet (Entresto) albuterol sulfate 90 mcg/actuation 2 puff inhalation Q6H PRN 02/09/25 Unknown History aerosol inhaler shortness of breath or wheezing cetirizine 10 mg tablet 10 mg PO DAILY 02/09/25 Unknown History hydroxyzine HCl 25 mg tablet 12.5 mg PO QHS allergies 02/09/25 Unknown History Allergy/AdvReac Type Severity Reaction Status Date / Time adhesive tape (tape) Allergy NEEDS Verified 02/09/25 11:59 FOLLOW-UP cephalexin monohydrate (From Allergy Rash Verified 02/09/25 11:59 Keflex) clopidogrel bisulfate (From Allergy Other Verified 02/09/25 11:59 Plavix) amoxicillin AdvReac YEAST Verified 02/09/25 11:59 INFECTION Family History Daughter Breast cancer Father Hypertension Sister Cancer Kidney disease Mother Pancreatic cancer Surgical History (Updated 02/14/25 @ 00:01 by Background Татьяна) History of left hip hemiarthroplasty S/P fine needle aspiration (~10/2020) H/O dilation and curettage (~07/10/20) History of Achilles tendon repair Retinopathy History of lumpectomy of left breast Social History household members: spouse Smoking Status: Former smoker alcohol intake: never substance use type: does not use caffeine: Yes what type of physical activity do you participate in: none seatbelt use: always do you feel safe at home: Yes additional social history: [employer]- retired ROS Constitutional Constitutional: Reports fatigue and weakness; Denies chills or fever(s) Eyes Eyes: Denies change in vision Cardiovascular Cardiovascular: Denies chest pain, dyspnea on exertion, edema, lightheadedness or palpitations Respiratory/Chest Respiratory/Chest: Reports cough, productive cough and shortness of breath with exertion; Denies shortness of breath at rest or wheezing Gastrointestinal Gastrointestinal: Denies abdominal pain Musculoskeletal Musculoskeletal: Denies arthralgias or myalgias Neurologic Neurologic: Denies dizziness, focal weakness or headache(s) Vital Signs Vital Signs Vital Signs: 02/15/25 08:36 02/15/25 08:36 02/15/25 09:26 Temperature 98.6 F Temperature Source Oral Pulse Rate 112 H 98 Respiratory Rate 22 H 17 Respiratory Effort Short of Breath Labored Respiratory Depth Shallow Respiratory Pattern Tachypnea Normal Blood Pressure 111/61 Blood Pressure Mean 77 Pulse Ox 92 Oxygen Delivery Method Room Air Oxygen Flow Rate (L/min) 02/15/25 11:00 02/15/25 11:19 02/15/25 11:19 Temperature 99.5 F H Temperature Source Oral Pulse Rate 105 H Respiratory Rate 30 H Respiratory Effort Respiratory Depth Respiratory Pattern Blood Pressure 120/49 L Blood Pressure Mean 72 Pulse Ox 84 97 Oxygen Delivery Method Room Air Room Air Nasal Cannula Oxygen Flow Rate (L/min) 3 02/15/25 11:52 02/15/25 13:54 02/15/25 13:54 Temperature 99.6 F H 99.6 F H Temperature Source Oral Pulse Rate 103 H 99 98 Respiratory Rate 26 H 24 H 22 H Respiratory Effort Respiratory Depth Respiratory Pattern Blood Pressure 123/57 H 110/53 L 110/53 L Blood Pressure Mean 79 72 72 Pulse Ox 97 97 98 Oxygen Delivery Method Nasal Cannula Nasal Cannula Oxygen Flow Rate (L/min) 3 3 Weight Weight: 78.1 kg Body Mass Index (BMI) 30.4 Physical Exam Const alert, oriented x3 and no apparent distress Constitutional Narrative: Elderly female, class I obesity, fatigued and somewhat weak appearing, otherwise sitting back comfortably in bed, answering questions appropriately, in no acute distress. General Appearance: cooperative and comfortable HEENT normocephalic, head/scalp atraumatic, hearing grossly normal bilaterally, nasal mucous membranes and turbinates normal and moist oral mucous membranes Eyes PERRL, EOMs intact bilaterally and conjunctivae normal Neck full ROM Chest inspection of chest normal Resp normal respiratory effort and no use of accessory muscles Resp Narrative: Breathing comfortably on 3 L nasal cannula at rest. Mild crackles noted in upper airways bilaterally with wet cough noted on exam, but otherwise good air movement throughout with no wheezing noted. Cardio no murmurs and peripheral pulses 2+ throughout Cardio Narrative: Tachycardic, regular rhythm. GI normal to inspection, nondistended, normoactive bowel sounds, soft to palpation, non-tender and non-distended Back/Spine normal ROM Extremity normal to inspection, full ROM and no pedal edema Skin no rashes or lesions noted Psych mental status grossly normal Results Lab / Micro Data 02/15/25 10:55 02/15/25 10:55 Labs: Laboratory Results - last 24 hr 02/15/25 10:55: WBC 9.0, RBC 3.74 L, Hgb 10.1 L, Hct 33.5 L, MCV 89.6, MCH 27.0, MCHC 30.1 L, RDW Std Deviation 52.9 H, RDW Coeff of Vijay 16.2 H, Plt Count 243, MPV 10.4, Immature Gran % (Auto) 1.000 H, Neut % (Auto) 82.5 H, Lymph % (Auto) 10.9 L, [place] % (Auto) 4.8, Eos % (Auto) 0.7, Baso % (Auto) 0.1, Absolute Neuts (auto) 7.5, Absolute Lymphs (auto) 0.98, Nucleated RBC % 0, Sodium 138, Potassium 4.3, Chloride 98, Carbon Dioxide 30.9, Anion Gap 9, BUN 24 H, Creatinine 1.04, Estim Creat Clear Calc 41.98 L, Est GFR (MDRD) Non-Af 54 L, BUN/Creatinine Ratio 23.1 H, Glucose 97, Calcium 10.7, Troponin T High Sens 117 H*, NT pro BNP II 4408 H 02/15/25 12:35: Troponin T Hi Sens 2 Hr 113 H* Imaging Radiology Impression Chest X-Ray 02/15/25 12:15 IMPRESSION: No convincing radiographic evidence of acute cardiopulmonary process. Reading [facility] Assessment & Plan Assessment/Plan (1) Generalized weakness: PLAN: Plan Patient is an 80-year-old female who presented [facility] ED on 02/15/2025 with recurrent shortness of breath and acute on chronic debility. 1. Acute on chronic debility ? Admit under observation status to [facility]. PT/OT/case management consulted. Multiple recent hospitalizations for COPD and CHF exacerbations. Most recent hospitalization from 02/10-02/13 for COPD exacerbation secondary to parainfluenza 3 virus. Discharged home with home health care at that time. Has had poor functional status at home and patient and family requesting SNF on discharge. Appreciate therapy recommendations. 2. Recent parainfluenza 3 infection with COPD exacerbation in setting of chronic respiratory failure ? Recent hospitalization from 02/10-02/13 for COPD exacerbation secondary to parainfluenza 3 pneumonia. Improved with IV steroids and scheduled DuoNebs, was discharged home on 2 L at rest and 3 L with exertion. Satting in the mid to high 90s on 3 L at rest in the ED. Chest x-ray improved from previous. However, patient does have some crackles noted in upper airways bilaterally and wet cough noted. Also has a low-grade fever of 99.6F in the ED. Sputum culture and procalcitonin ordered. Continue home scheduled DuoNebs every 6 hours and will treat with p.o. prednisone 40 mg daily; unclear if patient was discharged on prednisone taper but anticipate this would be beneficial for her. Will hold on antibiotics for now. Mucinex and incentive spirometry ordered as well. Continue home long-acting inhalers and roflumilast. 3. Elevated troponins in setting of chronic HFpEF, nonobstructive CAD, hypertension, hyperlipidemia, mild aortic stenosis ? Troponin trend 117 > 113 in the ED. Suspect demand ischemia secondary to some degree of hypoxia at home as noted above. EKG with no ischemic changes. Follows with outpatient cardiology, last office visit on 01/31. Recent new diagnosis of HFrEF on echo on 01/20 with EF 35 to 40%, mildly dilated LV, moderate global LV hypokinesis; mild aortic stenosis noted that was stable from previous. Chest x-ray clear on admit. BNP 4400 but this is much improved from BNP 9600 on 02/09. Given her crackles and wet cough on exam in the ED as above, gave 1 dose of IV Lasix 60 mg and then will continue home p.o. Lasix 60 mg twice daily. Continue home aspirin, statin, Entresto, diltiazem and Lopressor. Hold home Jardiance for now. No further cardiac workup needed at this time. 4. Type 2 diabetes mellitus with neuropathy ? Blood glucose 97 on admit. Patient reports poor appetite over the past several days. Will treat with reduced doses of Lantus 10 units twice daily, Humalog 5 units with meals plus sliding scale insulin, adjust as needed. Holding home Januvia and Mounjaro. Continue home gabapentin. 5. Mild chronic normocytic anemia ? Hemoglobin 10.1 on admit, at baseline 10-11. Stable. 6. GERD ? Continue home PPI. 7. Class I obesity ? BMI 30 on admit. Complicates hospital course, care and prognosis. DVT prophylaxis: Lovenox CODE STATUS: Full code, verified Expected disposition: Likely SNF, 1 to 2 days Total clinical time spent by myself addressing the patient's medical issues, reviewing all the data, and collaborating with patient's care team: 75 minutes. Charges/Coding Visit Charges Inpatient E&M: 62163 Init Hosp L3
--- NOTE | 2025-02-15 14:41 | CM.ED ---
Social Work SW met with patient and patients son. Son is concerned that patient has had multiple hospitalizations and has shown a decrease in her ability to care for self at home. Patients son states she is having difficulty with mobility and toileting herself. Patient and son would like patient evaluated for a short term SNF stay to help increase strength. No further needs identified at this time. Cadence Pulido, PRODUCT SAFETY TESTER, CORE INSERTER
[2025-02-15] MEDS: Furosemide 100 MG/10 ML Vial 60 MG IV (14:50)
[2025-02-15 15:13] LABS: Procalcitonin 0.27 ng/mL (<=0.10)
[2025-02-15 16:08] LABS: Troponin T High Sens 4 HR 114 ng/L (<=14)
[2025-02-15 17:25] LABS: Bedside Glucose 80 mg/dL (74-106)
[2025-02-15] MEDS: Potassium Chloride Oral Tablet 20 MEQ PO (18:14)
[2025-02-15] MEDS: guaiFENesin 600 MG Tablet PO (21:56)
[2025-02-15] MEDS: Pravastatin 20 MG Tablet PO (21:56)
[2025-02-15] MEDS: Metoprolol Tartrate 25 MG Tablet PO (21:56)
[2025-02-15] MEDS: Azelastine HCl NASAL.SRY 1 SPRAY NASAL (21:57)
[2025-02-15] MEDS: Gabapentin 100 MG Capsule PO (21:57)
[2025-02-15] MEDS: Magnesium Chloride 64 MG Delay Rel.Tablet 128 MG PO (21:57)
[2025-02-15] MEDS: Menthol/Lanolin/Calamine/Znox 113 GM Tube 1 APPLIC TOPICAL (21:58)
[2025-02-15] MEDS: hydrOXYzine 10 MG Tablet 12.5 MG PO (21:59)
[2025-02-15] MEDS: SACUBITRIL/VALSARTAN 24/26 MG TABLET 1 EACH PO (22:16)
[2025-02-15] MEDS: Insulin Lispro 100 UNIT/ML INSULN.PEN SC (22:17)
[2025-02-15] MEDS: Insulin Glargine-YFGN 100 UNIT/ML Pen 10 UNIT SC (22:18)
[2025-02-15 22:54] LABS: Bedside Glucose 152 mg/dL (74-106)
[2025-02-16] VITALS (11 sets, daily range): BP systolic 108–144; BP diastolic 51–62; PULSE 71–91; RESP 16–38; TEMP 36.2–36.7; O2SAT 91–96
[2025-02-16] MEDS: 0.9% Saline Lock 10 ML Syringe IV (05:10)
[2025-02-16 07:09] LABS: Bedside Glucose 63 mg/dL (74-106)
[2025-02-16] MEDS: Ipratropium/Albuterol Sulfate 3 ML AMPUL.NEB INHALATION ×3 (07:13→19:59)
[2025-02-16 07:48] LABS: Bedside Glucose 91 mg/dL (74-106)
[2025-02-16] MEDS: Potassium Chloride Oral Tablet 20 MEQ PO ×2 (07:59→16:57)
[2025-02-16] MEDS: Multivitamins,Therapeutic Tablet 1 TABLET PO (08:00)
[2025-02-16] MEDS: predniSONE 20 MG Tablet 40 MG PO (08:00)
[2025-02-16] MEDS: Cyanocobalamin 500 MCG Tablet 1000 MCG PO (08:00)
[2025-02-16] MEDS: Aspirin 81 MG TAB.CHEW PO (08:00)
--- NOTE | 2025-02-16 08:29 | PCM.PN.HOSP ---
Reason for Visit Reason for Visit: Diagnoses Weakness (02/15/25) Subjective Subjective Pt reports breathing is feeling better than on presentation, no new or acute complaints other than feeling debilitated and is motivated to go to SNF for rehab to get stronger Objective Data Objective Data Vital Signs: Vital Signs Temp Pulse Resp BP Pulse Ox O2 Del Method O2 Flow Rate 98.1 F 90 20 H 117/51 L 95 Nasal Cannula 3 02/16/25 04:50 02/16/25 07:13 02/16/25 07:13 02/16/25 04:50 02/16/25 07:13 02/16/25 07:13 02/16/25 07:13 Oxygen Flow Rate (L/min) 3 Oxygen Delivery Method Nasal Cannula Weight: 77 kg Body Mass Index (BMI) 30.0 Intake & Output: Intake and Output for Last 24 Hours 02/14/25 02/15/25 02/16/25 23:59 23:59 23:59 Intake Total 700 / 700 150 / 150 Output Total 1400 / 1400 Balance -700 / -700 150 / 150 Lab / Micro Data 02/16/25 08:15 02/16/25 08:15 Labs: Laboratory Results - last 24 hr 02/15/25 10:55: WBC 9.0, RBC 3.74 L, Hgb 10.1 L, Hct 33.5 L, MCV 89.6, MCH 27.0, MCHC 30.1 L, RDW Std Deviation 52.9 H, RDW Coeff of Vijay 16.2 H, Plt Count 243, MPV 10.4, Immature Gran % (Auto) 1.000 H, Neut % (Auto) 82.5 H, Lymph % (Auto) 10.9 L, [place] % (Auto) 4.8, Eos % (Auto) 0.7, Baso % (Auto) 0.1, Absolute Neuts (auto) 7.5, Absolute Lymphs (auto) 0.98, Nucleated RBC % 0, Sodium 138, Potassium 4.3, Chloride 98, Carbon Dioxide 30.9, Anion Gap 9, BUN 24 H, Creatinine 1.04, Estim Creat Clear Calc 41.98 L, Est GFR (MDRD) Non-Af 54 L, BUN/Creatinine Ratio 23.1 H, Glucose 97, Calcium 10.7, Troponin T High Sens 117 H*, NT pro BNP II 4408 H, Procalcitonin 0.27 H 02/15/25 12:35: Troponin T Hi Sens 2 Hr 113 H* 02/15/25 15:05: Troponin T Hi Sens 4Hr 114 H* 02/15/25 17:07: POC Glucose 80 02/15/25 22:15: POC Glucose 152 H 02/16/25 06:47: POC Glucose 63 L 02/16/25 07:30: POC Glucose 91 Radiography Diagnostic Testing: Radiology Impression Chest X-Ray 02/15/25 12:15 IMPRESSION: No convincing radiographic evidence of acute cardiopulmonary process. Reading Location: [facility] Physical Exam Narrative General: Alert, oriented, no apparent distress HEENT: Atraumatic, normocephalic Eyes: Anicteric, normal conjunctiva, extraocular movements grossly intact Neck: Supple Respiratory: Normal respiratory effort, scattered wheezes Cardiovascular: Regular rate GI: Soft, nontender, nondistended Extremities: No edema Musculoskeletal: Moving all extremities Neuro: No overt focal neurological deficits Skin: Some scaling on legs Psych: Cooperative Assessment & Plan Assessment/Plan (1) Debility: (2) Dyspnea: PLAN: Plan 80y/o F history of GERD, COPD, hypertension, diabetes who presented to [facility] ED 02/16/2025 with shortness of breath and increasing debility. Recently hospitalized here 02/10 through 02/13 for COPD exacerbation secondary to parainfluenza 3 and was also hospitalized in late December and early January for COPD and CHF exacerbations. Reportedly pulse ox at home in the low 80s and she has been more short of breath despite compliance with her medications. She is having difficulty caring for herself and family brought patient back in for possible SNF placement. No new acute process noted in ED, it was felt that abrupt cessation of prednisone without taper in light of her chronic respiratory problems may have caused the quick worsening upon discharge as well as deconditioning from multiple hospitalizations so pt admitted and started on PO pred and duonebs. # worsening debility - Acute worsening of chronic debility - PT/OT - case management consult - Pursuing placement # shortness of breath in the setting of chronic hypoxic respiratory failure presently on home O2 - patient saturating in the 90s on 3 L O2 here now - had recent paraInfluenza 3 pneumonia and was discharged 02/13, at the time of hospitalization was on IV steroids and DuoNebs - placed on DuoNebs and oral prednisone here, would likely benefit from prednisone taper on discharge as this may have contributed to her quick decline after discharge Given chest x-ray with no acute process and BNP actually lower than previous - Breathing improved, patient will be stable for transfer to SNF once accepted #Elevated troponin - Initial troponin 94 with increased to 139 and subsequent decrease to 114 - suspect this was due to patient's reported hypoxia at home and high suspicion that this is secondary in nature and not primary process - Denies any chest pain, breathing improving with the prednisone and breathing treatments #Type 2 diabetes mellitus -Glucose checks and sliding scale insulin - Continue long-acting insulin #GERD -Continue PPI #DVT ppx: Lovenox subcu Heydi Amaya MD Charges/Coding Visit Charges Inpatient E&M: 65503 Subs Hosp L2
[2025-02-16 08:33] LABS: Hematocrit 36.2 % (37-47); Mean Corp Hgb Conc 30.4 g/dL (32-36); Mean Corpuscular Hgb 27.4 pg (27.0-32.0); Platelet Count 250 K/mm3 (150-450); RBC Distribution Width CV 16.1 % (11.6-14.6); RBC Distribution Width SD 52.3 fl (35.1-43.9); Red Blood Count 4.02 M/mm3 (4.2-5.4); White Blood Count 9.2 K/mm3 (4.4-11.0)
[2025-02-16 09:36] LABS: Anion Gap 12 (5-15); BUN 21 mg/dL (4-19); Calcium,Total 10.7 mg/dL (7.6-11.0); Carbon Dioxide 29.5 mmol/L (21.0-32.0); Chloride 97 mmol/L (98-108); Creatinine, Serum 0.97 mg/dL (0.70-1.20); EST Glomerular Filtration Rate 58 (>60); Estimated Creatinine Clearance 44.69 ml/min (50-250); Glucose 98 mg/dL (70-99); Potassium 4.7 mmol/L (3.3-5.1); Sodium Level 138 mmol/L (133-145)
[2025-02-16] MEDS: Azelastine HCl NASAL.SRY 1 SPRAY NASAL ×2 (09:49→21:45)
[2025-02-16] MEDS: Menthol/Lanolin/Calamine/Znox 113 GM Tube 1 APPLIC TOPICAL ×2 (09:50→21:45)
[2025-02-16] MEDS: Loratadine 10 MG Tablet PO (09:51)
[2025-02-16] MEDS: ROFLUMILAST 500 MCG TABLET PO (09:51)
[2025-02-16] MEDS: dilTIAZem CD 180 MG Capsule PO (09:51)
[2025-02-16] MEDS: Furosemide 40 MG Tablet 60 MG PO ×2 (09:52→16:57)
[2025-02-16] MEDS: Metoprolol Tartrate 25 MG Tablet PO (09:54)
[2025-02-16] MEDS: Enoxaparin 40 MG/0.4 ML Syringe SC (09:54)
[2025-02-16] MEDS: Magnesium Chloride 64 MG Delay Rel.Tablet 128 MG PO ×2 (09:55→21:47)
[2025-02-16] MEDS: guaiFENesin 600 MG Tablet PO ×2 (09:55→21:47)
[2025-02-16] MEDS: Pantoprazole Sodium 40 MG Tablet PO (09:55)
[2025-02-16] MEDS: Ascorbic Acid 500 MG Tablet 250 MG PO (09:55)
[2025-02-16] MEDS: SACUBITRIL/VALSARTAN 24/26 MG TABLET 1 EACH PO ×2 (10:55→21:45)
[2025-02-16 11:49] LABS: Bedside Glucose 234 mg/dL (74-106)
[2025-02-16] MEDS: Acetaminophen 325 MG Tablet 650 MG PO (12:13)
--- NOTE | 2025-02-16 12:16 | CASEMGMT ---
Social Work- SW met with pt to discuss discharge planning. SW introduced self and role; pt agreeable to meeting. Pt reports that she has not had therapy yet, but would like referral to [facility] if appropriate. TCU alternate choice. SW remains available to follow. TANIA Elizabeth
[2025-02-16] MEDS: Insulin Glargine-YFGN 100 UNIT/ML Pen 10 UNIT SC ×2 (12:20→21:56)
[2025-02-16] MEDS: Insulin Lispro 100 UNIT/ML INSULN.PEN SC ×5 (12:23→21:55)
--- NOTE | 2025-02-16 14:51 | CASEMGMT ---
Social Work- SW followed up with pt following pt to confirm choice of [facility] as FOC. Pt confirmed. DCA notified of referral request. Physician updated. MILE remains available to follow. TANIA Elizabeth
--- NOTE | 2025-02-16 16:41 | CASEMGMT ---
Met with patient to complete CARRION form. CARRION form and its content were verbally explained and patient's questions were answered to the best of my ability.? Patient voiced understanding and signed CARRION form.? Patient provided a copy of signed CARRION form and original placed in patient's chart.? Patient had no further questions. Mariana Wilson, Discharge Planning Asst
[2025-02-16 16:59] LABS: Bedside Glucose 254 mg/dL (74-106)
[2025-02-16] MEDS: Pravastatin 20 MG Tablet PO (21:47)
[2025-02-16] MEDS: hydrOXYzine 10 MG Tablet 12.5 MG PO (21:48)
[2025-02-16] MEDS: Gabapentin 100 MG Capsule PO (21:53)
[2025-02-17] VITALS (8 sets, daily range): BP systolic 116–137; BP diastolic 54–71; PULSE 75–88; RESP 16–23; TEMP 36.4–37.2; O2SAT 92–98; BMI 29.4
[2025-02-17] MEDS: Petrolatum 33% Tube 1 APPLIC TOPICAL (03:18)
[2025-02-17] MEDS: Albuterol 2.5 MG/3 ML VIAL.NEB. INHALATION (04:25)
[2025-02-17 06:29] LABS: Absolute Lymphocyte Count 0.58 X10^3/uL (0.83-4.51); Absolute Neutrophil Count 6.4 X10^3/uL (2.0-7.7); Basophil# 0.01 X10^3/uL; Basophil% 0.1 % (0-1); Eosinophil# 0.01 X10^3/uL; Eosinophils% 0.1 % (0-5); Hematocrit 32.6 % (37-47); Hemoglobin 9.9 g/dL (12.0-15.0); Lymphocyte # 0.58 X10^3/ul (0.83-4.51); Lymphocyte % 7.8 % (19-41); Mean Corp Hgb Conc 30.4 g/dL (32-36); Mean Corpuscular Hgb 27.7 pg (27.0-32.0); Mean Corpuscular Volume 91.3 fL (81-99); Mean Platelet Vol. 11.2 fl (6.2-12.0); Monocyte# 0.37 X10^3/uL; NRBC Flagged by Analyzer 0 % (0-5); Neutrophil # 6.41 X10^3/uL (2.7-7.7); Neutrophil % 86.1 % (47-70); POSITIVE DIFFERENTIAL YES; Platelet Count 246 K/mm3 (150-450); RBC Distribution Width CV 15.6 % (11.6-14.6); RBC Distribution Width SD 51.5 fl (35.1-43.9); Red Blood Count 3.57 M/mm3 (4.2-5.4); White Blood Count 7.5 K/mm3 (4.4-11.0)
[2025-02-17 07:03] LABS: Anion Gap 12 (5-15); BUN 27 mg/dL (4-19); Calcium,Total 10.3 mg/dL (7.6-11.0); Carbon Dioxide 23.5 mmol/L (21.0-32.0); Chloride 98 mmol/L (98-108); Creatinine, Serum 1.15 mg/dL (0.70-1.20); EST Glomerular Filtration Rate 48 (>60); Estimated Creatinine Clearance 37.29 ml/min (50-250); Glucose 426 mg/dL (70-99); Potassium 5.3 mmol/L (3.3-5.1); Sodium Level 134 mmol/L (133-145)
[2025-02-17 07:40] LABS: Bedside Glucose 488 mg/dL (74-106)
[2025-02-17] MEDS: Insulin Lispro 100 UNIT/ML INSULN.PEN SC ×6 (07:53→16:44)
[2025-02-17] MEDS: Aspirin 81 MG TAB.CHEW PO (07:57)
[2025-02-17] MEDS: predniSONE 20 MG Tablet 40 MG PO (07:58)
[2025-02-17] MEDS: Multivitamins,Therapeutic Tablet 1 TABLET PO (07:58)
[2025-02-17] MEDS: Cyanocobalamin 500 MCG Tablet 1000 MCG PO (07:59)
[2025-02-17] MEDS: Azelastine HCl NASAL.SRY 1 SPRAY NASAL (09:22)
[2025-02-17] MEDS: Menthol/Lanolin/Calamine/Znox 113 GM Tube 1 APPLIC TOPICAL (09:23)
[2025-02-17] MEDS: dilTIAZem CD 180 MG Capsule PO (09:23)
[2025-02-17] MEDS: ROFLUMILAST 500 MCG TABLET PO (09:24)
[2025-02-17] MEDS: Loratadine 10 MG Tablet PO (09:24)
[2025-02-17] MEDS: SACUBITRIL/VALSARTAN 24/26 MG TABLET 1 EACH PO (09:24)
[2025-02-17] MEDS: Furosemide 40 MG Tablet 60 MG PO ×2 (09:25→18:09)
[2025-02-17] MEDS: Metoprolol Tartrate 25 MG Tablet PO (09:27)
[2025-02-17] MEDS: Magnesium Chloride 64 MG Delay Rel.Tablet 128 MG PO (09:28)
[2025-02-17] MEDS: Enoxaparin 40 MG/0.4 ML Syringe SC (09:28)
[2025-02-17] MEDS: guaiFENesin 600 MG Tablet PO (09:29)
[2025-02-17] MEDS: Pantoprazole Sodium 40 MG Tablet PO (09:30)
[2025-02-17] MEDS: Ascorbic Acid 500 MG Tablet 250 MG PO (09:30)
[2025-02-17] MEDS: Insulin Glargine-YFGN 100 UNIT/ML Pen 15 UNIT SC (09:32)
--- NOTE | 2025-02-17 11:04 | CASEMGMT ---
Discharge Planning Ekaterina has accepted and will submit for precert. SW updated. Mariana Wilson DC Planning Asst.
--- NOTE | 2025-02-17 11:14 | NURSING ---
Blood sugar is 419 at this time per Glucometer. Has not been entered into computer yet.
[2025-02-17 11:20] LABS: Bedside Glucose 419 mg/dL (74-106)
--- NOTE | 2025-02-17 12:20 | CASEMGMT ---
Social Work- SW met with pt to advise that [facility] requesting Mounjaro and Jardiance be supplied by pt; pt expresses agreement. SW updated DCA that pt in agreement and precert can be started. MILE remains available to follow. TANIA Elizabeth
--- NOTE | 2025-02-17 15:22 | CASEMGMT ---
TC derrick Ortiz at [facility], she is aware plan for SNF post hospitalization.
[2025-02-17 17:04] LABS: Bedside Glucose 241 mg/dL (74-106)
--- NOTE | 2025-02-17 17:04 | TREXTCAR_ITS ---
Diet Diet Order/Speech Therapy: INPATIENT Hospital Diet / Speech Therapy Order(s) 02/15/25 15:03 Diet: Consistent Carb - Calorie Controlled Food consistency:: Regular Liquid Consistency:: Regular/Thin How many daily calories?: 2000 calorie Routine Orders/Code Status Suppository Type: Dulcolax 10mg Suppository Frequency: Daily PRN Routine Lab Work: BMP (-Would recommend lab work (BMP) to check your potassium in 1 to 2 days and hold potassium supplementation until repeat labs are obtained) Code Status: Full Code DC O2, CPAP, BIPAP needs Home O2 Discharge instructions: Yes Type of respiratory needs?: Oxygen Oxygen frequency: At rest and With Ambulation Oxygen liters per minute during Ambulation: 3 Therapies Physical Therapy: Eval and Treat Occupational Therapy: Eval and Treat Problem/Diagnosis (1) Debility: Status: Acute Code(s): R53.81 - Other malaise (2) Dyspnea: Status: Acute Code(s): R06.00 - Dyspnea, unspecified Plan 80y/o F history of GERD, COPD, hypertension, diabetes who presented to [facility] ED 02/16/2025 with shortness of breath and increasing debility. Recently hospitalized here 02/10 through 02/13 for COPD exacerbation secondary to parainfluenza 3 and was also hospitalized in late December and early January for COPD and CHF exacerbations. Reportedly pulse ox at home in the low 80s and she has been more short of breath despite reported compliance with her medications. She is having difficulty caring for herself and family brought patient back in for possible SNF placement. She did have slightly elevated troponin in the ED which down trended but never had chest pain, suspected that t his was from her hypoxia at home and otherwise no new acute process noted in ED. It was felt that her worsened breathing prior to presentation was due to quick decrease of prednisone without taper in light of her chronic respiratory problems which may have caused the quick worsening upon discharge as well as deconditioning from multiple hospitalizations so pt admitted and started on increased dose of p.o. prednisone and duonebs. During hospitalization patient did mention that she may not have had one of the inhalers or nebulizers, somewhat poor historian so difficult to assess what it was that she was out of but this may have contributed to her decline and subsequent readmission. Patient did well on the 40 of prednisone and nebulizers and was saturating in the 90s on the 2 L of nasal cannula that she had been discharged on. During patient's admission she did have spike of glucose but suspect this was the steroids in addition to decreased insulin dosing on admission (due to concerns that she may have hypoglycemia with change in diet) but given hyperglycemia will plan to discharge on patient's home regimen. On day of discharge patient reports breathing is feeling even better today but she still feels weak overall. She has no new or acute complaints and pre-CERT obtained so patient discharged to rehab in stable condition. Discharge instructions as follows: Discharge instructions as follows: DISCHARGE INSTRUCTIONS PLEASE READ *Please take this with you to your next doctors appointment* -You will be discharged on a prednisone taper: -40mg daily x3 days -30mg daily x3 days -20mg daily x3 days -10mg daily x3 days -Would recommend lab work (BMP) to check your potassium in 1 to 2 days and hold potassium supplementation until repeat labs are obtained -Recommend continuing scheduled nebulizers -Please call your primary care provider's office upon discharge to schedule a hospital follow up within 1 week. -For any concerning signs or symptoms please call 911 or proceed to the nearest emergency department Allergies/Procedures Done in Hospital Allergies adhesive tape (tape) Allergy (Verified 02/09/25 11:59) NEEDS FOLLOW-UP CLOTH TAPE cephalexin monohydrate (From Keflex) Allergy (Verified 02/09/25 11:59) Rash clopidogrel bisulfate (From Plavix) Allergy (Verified 02/09/25 11:59) Other amoxicillin Adverse Reaction (Verified 02/09/25 11:59) YEAST INFECTION Type of Care/Length of Stay Estimated LOS: Convalescent Care Less Than 30 days Type of Care Needed: Skilled Rehab Potential: Fair Prognosis: Fair Additional Orders/Day of Discharge Day of Discharge: 02/17/25 Discharge Plan Admission Admit Date/Time: 02/15/25 14:01 Primary Reason for Your Visit: Shortness of breath, general weakness Attending Provider: Heydi Amaya Primary Care Provider: Ramone Smiley Consulting Providers: Nestor Bartlett Instructions Patient Instructions: ED COPD Flare, ED Dyspnea Additional Instructions / Restrictions: DISCHARGE INSTRUCTIONS PLEASE READ *Please take this with you to your next doctors appointment* -You will be discharged on a prednisone taper: -40mg daily x3 days -30mg daily x3 days -20mg daily x3 days -10mg daily x3 days -Would recommend lab work (BMP) to check your potassium in 1 to 2 days and hold potassium supplementation until repeat labs are obtained -Recommend continuing scheduled nebulizers -Please call your primary care provider's office upon discharge to schedule a hospital follow up within 1 week. -For any concerning signs or symptoms please call 911 or proceed to the nearest emergency department Discharge Orders/Prescriptions Prescriptions: New guaifenesin [Mucinex] 600 mg Tablet Extended Release 12hr 600 mg PO BID Qty: 0 0RF prednisone 20 mg Tablet See Taper PO BREAKFAST Qty: 15 0RF Taper: Prednisone Taper 40 mg WITH BREAKFAST for 3 Days and 0 Hour 30 mg WITH BREAKFAST for 3 Days and 0 Hour 20 mg WITH BREAKFAST for 3 Days and 0 Hour 10 mg WITH BREAKFAST for 3 Days and 0 Hour Continued Januvia 50 mg tablet 50 mg PO DAILY Jardiance 10 mg tablet 10 mg PO DAILY multivitamin Tablet 1 tab PO DAILY pravastatin 20 mg tablet 20 mg PO DAILY aspirin 81 MG tablet,chewable 81 mg PO DAILY metoprolol tartrate 25 MG tablet 25 mg PO BID magnesium oxide 400 MG tablet 400 mg PO BID pantoprazole 40 MG tablet 40 mg PO DAILY roflumilast 500 mcg tablet 500 mcg PO DAILY ascorbic acid (vitamin C) [Vitamin C] 250 mg tablet 250 mg PO DAILY insulin lispro [Humalog KwikPen Insulin] 100 unit/mL Insulin Pen 10 unit subcut TIDAC Rx Instructions: Hold if glucose less than 120 mg/dl Mounjaro 5 mg/0.5 mL pen injector 5 mg subcut QWEEK Patient Comments: PT STATES SHE SOMETIMES TAKES IT ON THURSDAY, SOMETIMES ON FRIDAYS. menthol-zinc oxide [CalaSoothe] 0.44-20.6 % ointment 1 applic topical 4X/DAY PRN (Reason: skin irritation) psyllium husk [Daily Fiber] 0.4 gram capsule 0.4 g PO DAILY mecobalamin (vitamin B12) [B12 Active] 1,000 mcg tablet,chewable 1,000 mcg PO DAILY azelastine 137 mcg (0.1 %) spray,non-aerosol 1 - 2 spray INTRANASAL BID acetaminophen 500 mg Tablet 1,000 mg PO Q6H PRN (Reason: Pain Score 1-3) Rocklatan 0.02-0.005 % Drops 1 drp EACH EYE DAILY ipratropium-albuterol 0.5 mg-3 mg(2.5 mg base)/3 mL Solution For Nebulization 3 ml inhalation Q6H.RT Qty: 120 0RF furosemide [Lasix] 20 mg tablet 60 mg PO BID Qty: 180 0RF albuterol sulfate 90 mcg/actuation HFA aerosol inhaler 2 puff inhalation Q6H PRN (Reason: shortness of breath or wheezing) cetirizine 10 mg tablet 10 mg PO DAILY hydroxyzine HCl 25 mg tablet 12.5 mg PO QHS gabapentin 100 mg capsule 100 mg PO QHS 3 Days Qty: 3 0RF diltiazem HCl 180 mg capsule,ext.rel 24h degradable 180 mg PO DAILY ipratropium bromide 21 mcg (0.03 %) spray,non-aerosol 1 - 2 spray INTRANASAL Q6H PRN (Reason: allergy symptoms) insulin glargine [Lantus Solostar U-100 Insulin] 100 unit/mL (3 mL) insulin pen 20 unit subcut BID (DME) lancets [TRUEplus Lancets] 28 gauge misc MISCELLANEOUS Breztri Aerosphere 160-9-4.8 mcg/actuation HFA aerosol inhaler 2 inh inhalation BID Entresto 24-26 mg tablet 1 tab PO BID Qty: 60 11RF Held potassium chloride [K-Tab] 20 mEq tablet extended release 20 meq PO BID Hold Instructions: Resume on 02/19/25. Discontinued prednisone 10 mg tablet 10 mg PO BID Qty: 20 0RF Referrals / Follow Up: Ramone Smiley MD [Primary Care Provider] - 3-5 Days Disposition Disposition (needs filled in before D/C Order can be placed): Sn[facility] Facility
--- NOTE | 2025-02-17 17:13 | DS.PCM_ITS ---
Providers Date of Admission: 02/15/25 Date of Discharge: 02/17/25 Primary Care Physician: Dr. Ramone Smiley MD Reason For Visit: ACUTE ON CHRONIC DEBILITY Diagnosis Discharge Diagnosis (1) Debility: Status: Acute Code(s): R53.81 - Other malaise (2) Dyspnea: Status: Acute Code(s): R06.00 - Dyspnea, unspecified Plan # worsening debility # shortness of breath in the setting of chronic hypoxic respiratory failure presently on home O2 improved with increase in steroids and scheduled nebs w/ recent parainfluenza 3 infection #Elevated troponin secondary to demand from hypoxia pre hospital #Type 2 diabetes mellitus #GERD Medications at Discharge Home Medications aspirin 81 mg chewable tablet 81 mg PO DAILY HEART HEALTH 01/21/16 magnesium oxide 400 mg (241.3 mg magnesium) tablet 400 mg PO BID SUPPLEMENT 08/16/18 metoprolol tartrate 25 mg tablet 25 mg PO BID BLOOD PRESSURE 08/16/18 pantoprazole 40 mg tablet,delayed release 40 mg PO DAILY ACID REFLUX 12/02/19 empagliflozin 10 mg tablet (Jardiance) 10 mg PO DAILY DIABETES 10/18/20 sitagliptin phosphate 50 mg tablet (Januvia) 50 mg PO DAILY DIABETES 10/18/20 multivitamin 1 tab PO DAILY VITAMIN 12/06/21 pravastatin 20 mg tablet 20 mg PO DAILY CHOLESTEROL 12/06/21 ascorbic acid (vitamin C) 250 mg tablet (Vitamin C) 250 mg PO DAILY SUPPLEMENT 08/13/23 roflumilast 500 mcg tablet 500 mcg PO DAILY COPD 08/13/23 insulin lispro 100 unit/mL subcutaneous pen (Humalog KwikPen (U-100) Insulin) 10 unit subcut TIDAC short acting insulin 12/30/23 budesonide 160 mcg-glycopyr 9 mcg-formot 4.8 mcg/actuation HFA inhaler (Breztri Aerosphere) 2 inh inhalation BID breathing 01/07/25 diltiazem HCl 180 mg capsule,extended release 24 hr, controlled 180 mg PO DAILY heart 01/07/25 insulin glargine 100 unit/mL (3 mL) subcutaneous pen (Lantus Solostar U-100 Insulin) 20 unit subcut BID diabetes 01/07/25 ipratropium bromide 21 mcg (0.03 %) nasal spray 1 - 2 spray intranasal Q6H PRN allergy symptoms 01/07/25 lancets 28 gauge (TRUEplus Lancets) 01/07/25 acetaminophen 500 mg tablet 1,000 mg PO Q6H PRN Pain Score 1-3 01/15/25 azelastine 137 mcg (0.1 %) nasal spray 1 - 2 spray intranasal BID nasal spray 01/15/25 mecobalamin (vitamin B12) 1,000 mcg chewable tablet (B12 Active) 1,000 mcg PO DAILY health maintenance 01/15/25 menthol 0.44 %-zinc oxide 20.6 % topical ointment (CalaSoothe) 1 applic topical 4X/DAY PRN skin irritation 01/15/25 netarsudil 0.02 %-latanoprost 0.005 % eye drops (Rocklatan) 1 drp EACH EYE DAILY eye drops 01/15/25 psyllium husk 0.4 gram capsule (Daily Fiber) 0.4 g PO DAILY constipation 01/15/25 tirzepatide 5 mg/0.5 mL subcutaneous pen injector (Prabhu) 5 mg subcut QWEEK diabetes 01/15/25 potassium chloride 20 mEq tablet,extended release (K-Tab) 20 meq PO BID supplement 02/04/25 Held on 02/17/25. Instructions: Resume on 02/19/25. furosemide 20 mg tablet (Lasix) 60 mg (3 x 20 mg) PO BID #180 tabs 02/06/25 ipratropium 0.5 mg-albuterol 3 mg (2.5 mg base)/3 mL nebulization soln 3 ml inhalation Q6H.RT #120 amps 02/06/25 sacubitril 24 mg-valsartan 26 mg tablet (Entresto) 1 tab PO BID #60 tabs 02/07/25 albuterol sulfate 90 mcg/actuation aerosol inhaler 2 puff inhalation Q6H PRN shortness of breath or wheezing 02/09/25 cetirizine 10 mg tablet 10 mg PO DAILY 02/09/25 hydroxyzine HCl 25 mg tablet 12.5 mg PO QHS allergies 02/09/25 gabapentin 100 mg capsule 100 mg PO QHS NERVE PAIN 3 days #3 caps 02/17/25 guaifenesin 600 mg tablet, extended release 12 hr (Mucinex) 600 mg PO BID #0 tabs 02/17/25 prednisone 20 mg tablet See Taper PO BREAKFAST #15 tabs 02/17/25 Hospital Course Summary of Care Provided Minutes Spent on Discharge: 26 Hospital Course: 80y/o F history of GERD, COPD, hypertension, diabetes who presented to [facility] ED 02/16/2025 with shortness of breath and increasing debility. Recently hospitalized here 02/10 through 02/13 for COPD exacerbation secondary to parainfluenza 3 and was also hospitalized in late December and early January for COPD and CHF exacerbations. Reportedly pulse ox at home in the low 80s and she has been more short of breath despite reported compliance with her medications. She is having difficulty caring for herself and family brought patient back in for possible SNF placement. She did have slightly elevated troponin in the ED which down trended but never had chest pain, suspected that this was from her hypoxia at home and otherwise no new acute process noted in ED. It was felt that her worsened breathing prior to presentation was due to quick decrease of prednisone without taper in light of her chronic respiratory problems which may have caused the quick worsening upon discharge as well as deconditioning from multiple hospitalizations so pt admitted and started on increased dose of p.o. prednisone and duonebs. During hospitalization patient did mention that she may not have had one of the inhalers or nebulizers, somewhat poor historian so difficult to assess what it was that she was out of but this may have contributed to her decline and subsequent readmission. Patient did well on the 40 of prednisone and nebulizers and was saturating in the 90s on the 2 L of nasal cannula that she had been discharged on. During patient's admission she did have spike of glucose but suspect this was the steroids in addition to decreased insulin dosing on admission (due to concerns that she may have hypoglycemia with change in diet) but given hyperglycemia will plan to discharge on patient's home regimen. On day of discharge patient reports breathing is feeling even better today but she still feels weak overall. She has no new or acute complaints and pre-CERT obtained so patient discharged to rehab in stable condition. Discharge instructions as follows: Discharge instructions as follows: DISCHARGE INSTRUCTIONS PLEASE READ *Please take this with you to your next doctors appointment* -You will be discharged on a prednisone taper: -40mg daily x3 days -30mg daily x3 days -20mg daily x3 days -10mg daily x3 days -Would recommend lab work (BMP) to check your potassium in 1 to 2 days and hold potassium supplementation until repeat labs are obtained -Recommend continuing scheduled nebulizers -Please call your primary care provider's office upon discharge to schedule a hospital follow up within 1 week. -For any concerning signs or symptoms please call 911 or proceed to the nearest emergency department Physical Exam Narrative General: Alert, oriented, no apparent distress HEENT: Atraumatic, normocephalic Eyes: Anicteric, normal conjunctiva, extraocular movements grossly intact Neck: Supple Respiratory: Normal respiratory effort, wheezes improving, no significant crackles or rhonchi Cardiovascular: Regular rate GI: Soft, nontender, nondistended Extremities: No significant pitting Musculoskeletal: Moving all extremities Neuro: No overt focal neurological deficits Skin: Some scaling on legs Psych: Cooperative Weight / BMI Weight Weight: 75.3 kg Body Mass Index (BMI) 29.4 ABG / Lab / Microbiology Data 02/17/25 05:35 02/17/25 05:35 Laboratory: Laboratory Results - last 24 hr 02/17/25 05:35: WBC 7.5, RBC 3.57 L, Hgb 9.9 L, Hct 32.6 L, MCV 91.3, MCH 27.7, MCHC 30.4 L, RDW Std Deviation 51.5 H, RDW Coeff of Vijay 15.6 H, Plt Count 246, MPV 11.2, Immature Gran % (Auto) 0.900, Neut % (Auto) 86.1 H, Lymph % (Auto) 7.8 L, [place] % (Auto) 5.0, Eos % (Auto) 0.1, Baso % (Auto) 0.1, Absolute Neuts (auto) 6.4, Absolute Lymphs (auto) 0.58 L, Nucleated RBC % 0, Sodium 134, Potassium 5.3 H, Chloride 98, Carbon Dioxide 23.5, Anion Gap 12, BUN 27 H, Creatinine 1.15, E stim Creat Clear Calc 37.29 L, Est GFR (MDRD) Non-Af 48 L, BUN/Creatinine Ratio 23.0 H, Glucose 426 H, Calcium 10.3 02/17/25 07:21: POC Glucose 488 H* 02/17/25 11:03: POC Glucose 419 H 02/17/25 16:33: POC Glucose 241 H Microbiology: Microbiology 02/16/25 08:15 Sputum, Expectorated/Coughed Gram Stain - Final D/C Instructions DC O2, CPAP, BIPAP Needs Home O2 Discharge instructions: Yes Type of respiratory needs?: Oxygen Oxygen frequency: At rest and With Ambulation Oxygen liters per minute during Ambulation: 3 DC home with Oxygen: Yes Home O2 MD Review: I have reviewed the oxygen testing, and the patient qualifies for home oxygen equipment and portability. The patient is mobile in the home and the community. Meaningful Use Info Meaningful Use Meaningful Use Diagnoses (Choose all that apply): None applicable Ischemic Stroke Statin Dosing Therapy Reference: STATIN DOSE THERAPY REFERENCE: * Patients > 75 years receive moderate or high dose statin therapy. * Patients 75 years or YOUNGER should receive HIGH intensity statin dose unless contraindicated. You will be required to document reason for non-treatment if statin daily dose does not meet guidelines. HIGH DOSE STATIN THERAPY DAILY Atorvastatin > than or = to 40 mg Rosuvastatin > than or = to 20 mg Amlodipine + Atorvastatin > than or = to 2.5/40 mg Ezetimibe + Simvastatin 10/80 mg Simvastatin 80mg Discharge Plan Admission Admit Date/Time: 02/15/25 14:01 Primary Reason for Your Visit: Shortness of breath, general weakness Attending Provider: Heydi Amaya Primary Care Provider: Ramone Smiley Consulting Providers: Nestor Bartlett Instructions Patient Instructions: ED COPD Flare, ED Dyspnea Additional Instructions / Restrictions: DISCHARGE INSTRUCTIONS PLEASE READ *Please take this with you to your next doctors appointment* -You will be discharged on a prednisone taper: -40mg daily x3 days -30mg daily x3 days -20mg daily x3 days -10mg daily x3 days -Would recommend lab work (BMP) to check your potassium in 1 to 2 days and hold potassium supplementation until repeat labs are obtained -Recommend continuing scheduled nebulizers -Please call your primary care provider's office upon discharge to schedule a hospital follow up within 1 week. -For any concerning signs or symptoms please call 911 or proceed to the nearest emergency department Discharge Orders/Prescriptions Prescriptions: New guaifenesin [Mucinex] 600 mg Tablet Extended Release 12hr 600 mg PO BID Qty: 0 0RF prednisone 20 mg Tablet See Taper PO BREAKFAST Qty: 15 0RF Taper: Prednisone Taper 40 mg WITH BREAKFAST for 3 Days and 0 Hour 30 mg WITH BREAKFAST for 3 Days and 0 Hour 20 mg WITH BREAKFAST for 3 Days and 0 Hour 10 mg WITH BREAKFAST for 3 Days and 0 Hour Continued Januvia 50 mg tablet 50 mg PO DAILY Jardiance 10 mg tablet 10 mg PO DAILY multivitamin Tablet 1 tab PO DAILY pravastatin 20 mg tablet 20 mg PO DAILY aspirin 81 MG tablet,chewable 81 mg PO DAILY metoprolol tartrate 25 MG tablet 25 mg PO BID magnesium oxide 400 MG tablet 400 mg PO BID pantoprazole 40 MG tablet 40 mg PO DAILY roflumilast 500 mcg tablet 500 mcg PO DAILY ascorbic acid (vitamin C) [Vitamin C] 250 mg tablet 250 mg PO DAILY insulin lispro [Humalog KwikPen Insulin] 100 unit/mL Insulin Pen 10 unit subcut TIDAC Rx Instructions: Hold if glucose less than 120 mg/dl Mounjaro 5 mg/0.5 mL pen injector 5 mg subcut QWEEK Patient Comments: PT STATES SHE SOMETIMES TAKES IT ON THURSDAY, SOMETIMES ON FRIDAYS. menthol-zinc oxide [CalaSoothe] 0.44-20.6 % ointment 1 applic topical 4X/DAY PRN (Reason: skin irritation) psyllium husk [Daily Fiber] 0.4 gram capsule 0.4 g PO DAILY mecobalamin (vitamin B12) [B12 Active] 1,000 mcg tablet,chewable 1,000 mcg PO DAILY azelastine 137 mcg (0.1 %) spray,non-aerosol 1 - 2 spray INTRANASAL BID acetaminophen 500 mg Tablet 1,000 mg PO Q6H PRN (Reason: Pain Score 1-3) Rocklatan 0.02-0.005 % Drops 1 drp EACH EYE DAILY ipratropium-albuterol 0.5 mg-3 mg(2.5 mg base)/3 mL Solution For Nebulization 3 ml inhalation Q6H.RT Qty: 120 0RF furosemide [Lasix] 20 mg tablet 60 mg PO BID Qty: 180 0RF albuterol sulfate 90 mcg/actuation HFA aerosol inhaler 2 puff inhalation Q6H PRN (Reason: shortness of breath or wheezing) cetirizine 10 mg tablet 10 mg PO DAILY hydroxyzine HCl 25 mg tablet 12.5 mg PO QHS gabapentin 100 mg capsule 100 mg PO QHS 3 Days Qty: 3 0RF diltiazem HCl 180 mg capsule,ext.rel 24h degradable 180 mg PO DAILY ipratropium bromide 21 mcg (0.03 %) spray,non-aerosol 1 - 2 spray INTRANASAL Q6H PRN (Reason: allergy symptoms) insulin glargine [Lantus Solostar U-100 Insulin] 100 unit/mL (3 mL) insulin pen 20 unit subcut BID (DME) lancets [TRUEplus Lancets] 28 gauge misc MISCELLANEOUS Breztri Aerosphere 160-9-4.8 mcg/actuation HFA aerosol inhaler 2 inh inhalation BID Entresto 24-26 mg tablet 1 tab PO BID Qty: 60 11RF Held potassium chloride [K-Tab] 20 mEq tablet extended release 20 meq PO BID Hold Instructions: Resume on 02/19/25. Discontinued prednisone 10 mg tablet 10 mg PO BID Qty: 20 0RF Referrals / Follow Up: Ramone Smiley MD [Primary Care Provider] - 3-5 Days Disposition Disposition (needs filled in before D/C Order can be placed): [facility] Charges/Coding Visit Charges Inpatient E&M: [id number] Disch Hosp
[2025-02-17] MEDS: Ipratropium/Albuterol Sulfate 3 ML AMPUL.NEB INHALATION (18:40)
--- NOTE | 2025-02-17 18:59 | NURSING ---
This RN was on the phone for 10min with [facility] to give report to the RN that is getting the pt. According to one staff member they do not know what floor she is supposed to be on and that even after talking to school crossing guard supervisor at [facility] no one has her as an admission.
--- NOTE | 2025-02-17 19:17 | NURSING ---
Miki MAYBERRY Given report at this time despite that [facility] does not know what floor she is being admitted too.
[2025-02-20 16:03] LABS: Bedside Glucose 385 mg/dL (74-106)
[2025-02-20 16:03] LABS: Bedside Glucose 419 mg/dL (74-106)
== END 2025-02-17 19:50 | disposition skilled nursing facility (03) ==
LOC: ED 14:03 → MS3 14:20
PROVIDERS: Admitting Provider Hospitalist; Emergency Provider Emergency Medicine; PCP Family Medicine; Visit Provider Internal Medicine
DX: J96.11 Chronic respiratory failure with hypoxia (principal); I13.0 Hypertensive heart and chronic kidney disease with heart failure and stage 1 through stage 4 chronic kidney disease, or unspecified chronic kidney disease; I50.32 Chronic diastolic (congestive) heart failure; J44.9 Chronic obstructive pulmonary disease, unspecified; E11.22 Type 2 diabetes mellitus with diabetic chronic kidney disease; E11.42 Type 2 diabetes mellitus with diabetic polyneuropathy; Z79.4 Long term (current) use of insulin; N18.30 Chronic kidney disease, stage 3 unspecified; R53.81 Other malaise; Z79.85 Long-term (current) use of injectable non-insulin antidiabetic drugs; K21.9 Gastro-esophageal reflux disease without esophagitis; E78.5 Hyperlipidemia, unspecified; Z87.891 Personal history of nicotine dependence; I25.10 Atherosclerotic heart disease of native coronary artery without angina pectoris; Z79.84 Long term (current) use of oral hypoglycemic drugs; Z99.81 Dependence on supplemental oxygen; Z79.899 Other long term (current) drug therapy; Z79.82 Long term (current) use of aspirin; E66.811 Obesity, class 1; Z68.30 Body mass index [BMI] 30.0-30.9, adult
CPT/HCPCS: 36415; 71045; 80048; 82962; 83880; 84145; 84484; 85025; 85027; 87070; 87205; 93005; 94640; 94668; 96372; 96374; 97162; 97166; 97530; 99221; 99285; A4216; G0378; J1938

== ENCOUNTER 2025-02-18 20:49 | Emergency (ER) | payer MEDICARE, SELFPAY ==
[2025-02-18] VITALS (7 sets, daily range): BP systolic 117–141; BP diastolic 51–64; PULSE 97–113; RESP 22–28; TEMP 36.8–37.4; O2SAT 94–99; BMI 30.4
--- NOTE | 2025-02-18 22:20 | EKG12_ITS ---
Test Reason : SOB Blood Pressure : */* mmHG Vent. Rate : 105 BPM Atrial Rate : 105 BPM P-R Int : 124 ms QRS Dur : 82 ms QT Int : 310 ms P-R-T Axes : 48 1 18 degrees QTcB Int : [address] & T wave abnormality, consider lateral ischemia Abnormal ECG Confirmed by Carlos Moore ([id number]), telegraph editor MIKE MATTHEW ([id number]) on 02/21/2025 11:36:55 AM Referred By: Confirmed By: Carlos Moore
--- NOTE | 2025-02-18 22:21 | ED.VIS.DYS ---
HPI History of Present Illness Chief Complaint: Shortness of Breath Narrative Narrative: 80-year-old female past medical history of COPD, wears 2 to 3 L of oxygen, [facility] from [facility] with increasing shortness of breath. She relates history that she was admitted to the hospital for breathing difficulty and was released on Thursday. This is approximately 5 days ago. She is only at the [facility] facility temporarily. She states she does not see a options trader. She has been taking prednisone since discharge. She presents today with increasing shortness of breath and occasional cough. No fevers or chills. [facility] Medical History History of diabetes mellitus COPD exacerbation Hypoxia Elevated troponin Acute dyspnea Poor venous access Diabetic polyneuropathy Hypomagnesemia Debility Weakness Gastroenteritis Abscess Postmenopausal bleeding GERD (gastroesophageal reflux disease) COPD (chronic obstructive pulmonary disease) History of constipation Asthma Osteoporosis COPD with exacerbation Anemia History of COPD Elevated brain natriuretic peptide (BNP) level Elevated troponin Acute hypoxemic respiratory failure Obesity (BMI 30.0-34.9) Elevated troponin Lactic acidosis Fracture of hip, left, closed Coronary artery disease Paronychia of left index finger Vaginal cyst Anxiety Depression Irregular heart beat Multiple thyroid nodules Foraminal stenosis of lumbar region Lumbar spinal stenosis Diabetic retinopathy Colon polyp Thyroid goiter Hyperlipidemia Hypokalemia Microcytic anemia Neurogenic bladder Hypophosphatemia Hypercalcemia Former smoker UTI (urinary tract infection) Iron deficiency anemia Aortic stenosis Hyponatremia Urine retention Chronic renal failure, stage 3 (moderate) Cellulitis and abscess of finger, unspecified Retinopathy Peripheral artery disease Leg weakness, bilateral GERD (gastroesophageal reflux disease) Chronic idiopathic constipation COPD (chronic obstructive pulmonary disease) Polypharmacy Hypertension Carpal tunnel syndrome of right wrist Strain of right rotator cuff capsule Rhinitis Urinary retention with incomplete bladder emptying Vitamin D deficiency Asthma Pruritus Goiter, nontoxic, multinodular Anemia Diabetes Hx of venous thrombosis and embolism History of malignant neoplasm of breast Hypertension Type 2 diabetes mellitus Home Medications ?Medication ?Instructions ?Recorded ?Last Taken ?Type aspirin 81 mg chewable tablet 81 mg PO DAILY HEART HEALTH 01/21/16 01/15/25 History magnesium oxide 400 mg (241.3 mg 400 mg PO BID SUPPLEMENT 08/16/18 01/15/25 History magnesium) tablet metoprolol tartrate 25 mg tablet 25 mg PO BID BLOOD PRESSURE 08/16/18 01/15/25 History pantoprazole 40 mg tablet,delayed 40 mg PO DAILY ACID REFLUX 12/02/19 01/15/25 History release empagliflozin 10 mg tablet 10 mg PO DAILY DIABETES 10/18/20 01/15/25 History (Jardiance) sitagliptin phosphate 50 mg tablet 50 mg PO DAILY DIABETES 10/18/20 01/15/25 History (Januvia) multivitamin 1 tab PO DAILY VITAMIN 12/06/21 01/15/25 History pravastatin 20 mg tablet 20 mg PO DAILY CHOLESTEROL 12/06/21 01/15/25 History ascorbic acid (vitamin C) 250 mg 250 mg PO DAILY SUPPLEMENT 08/13/23 01/15/25 History tablet (Vitamin C) roflumilast 500 mcg tablet 500 mcg PO DAILY COPD 08/13/23 01/15/25 History insulin lispro 100 unit/mL 10 unit subcut TIDAC short acting 12/30/23 01/15/25 History subcutaneous pen (Humalog KwikPen insulin (U-100) Insulin) budesonide 160 mcg-glycopyr 9 2 inh inhalation BID breathing 01/07/25 01/15/25 History mcg-formot 4.8 mcg/actuation HFA inhaler (Breztri Aerosphere) diltiazem HCl 180 mg 180 mg PO DAILY heart 01/07/25 01/15/25 History capsule,extended release 24 hr, controlled insulin glargine 100 unit/mL (3 20 unit subcut BID diabetes 01/07/25 01/15/25 History mL) subcutaneous pen (Lantus Solostar U-100 Insulin) ipratropium bromide 21 mcg (0.03 1 - 2 spray intranasal Q6H PRN 01/07/25 Unknown History %) nasal spray allergy symptoms lancets 28 gauge (TRUEplus Lancets) 01/07/25 Unknown History acetaminophen 500 mg tablet 1,000 mg PO Q6H PRN Pain Score 1-3 01/15/25 Unknown History azelastine 137 mcg (0.1 %) nasal 1 - 2 spray intranasal BID nasal 01/15/25 01/15/25 History spray spray mecobalamin (vitamin B12) 1,000 1,000 mcg PO DAILY health 01/15/25 01/15/25 History mcg chewable tablet (B12 Active) maintenance menthol 0.44 %-zinc oxide 20.6 % 1 applic topical 4X/DAY PRN skin 01/15/25 Unknown History topical ointment (CalaSoothe) irritation netarsudil 0.02 %-latanoprost 1 drp EACH EYE DAILY eye drops 01/15/25 01/15/25 History 0.005 % eye drops (Rocklatan) psyllium husk 0.4 gram capsule 0.4 g PO DAILY constipation 01/15/25 01/15/25 History (Daily Fiber) tirzepatide 5 mg/0.5 mL 5 mg subcut QWEEK diabetes 01/15/25 Unknown History subcutaneous pen injector (Mounjaro) potassium chloride 20 mEq 20 meq PO BID supplement 02/04/25 Unknown History tablet,extended release (K-Tab) furosemide 20 mg tablet (Lasix) 60 mg (3 x 20 mg) PO BID #180 tabs 02/06/25 Unknown Rx ipratropium 0.5 mg-albuterol 3 mg 3 ml inhalation Q6H.RT #120 amps 02/06/25 Unknown Rx (2.5 mg base)/3 mL nebulization soln sacubitril 24 mg-valsartan 26 mg 1 tab PO BID #60 tabs 02/07/25 Unknown Rx tablet (Entresto) albuterol sulfate 90 mcg/actuation 2 puff inhalation Q6H PRN 02/09/25 Unknown History aerosol inhaler shortness of breath or wheezing cetirizine 10 mg tablet 10 mg PO DAILY 02/09/25 Unknown History hydroxyzine HCl 25 mg tablet 12.5 mg PO QHS allergies 02/09/25 Unknown History gabapentin 100 mg capsule 100 mg PO QHS NERVE PAIN 3 days 02/17/25 Unknown Rx #3 caps guaifenesin 600 mg tablet, 600 mg PO BID #0 tabs 02/17/25 Unknown Rx extended release 12 hr (Mucinex) prednisone 20 mg tablet See Taper PO BREAKFAST #15 tabs 02/17/25 Unknown Rx Allergy/AdvReac Type Severity Reaction Status Date / Time adhesive tape (tape) Allergy NEEDS Verified 02/09/25 11:59 FOLLOW-UP cephalexin monohydrate (From Allergy Rash Verified 02/09/25 11:59 Keflex) clopidogrel bisulfate (From Allergy Other Verified 02/09/25 11:59 Plavix) amoxicillin AdvReac YEAST Verified 02/09/25 11:59 INFECTION Family History Daughter Breast cancer Father Hypertension Sister Cancer Kidney disease Mother Pancreatic cancer Surgical History History of left hip hemiarthroplasty S/P fine needle aspiration (~10/2020) H/O dilation and curettage (~07/10/20) History of Achilles tendon repair Retinopathy History of lumpectomy of left breast Social History household members: spouse Smoking Status: Former smoker alcohol intake: never substance use type: does not use caffeine: Yes what type of physical activity do you participate in: none seatbelt use: always do you feel safe at home: Yes additional social history: [employer]- retired ROS ROS ED ROS Narrative Review of systems positive for cough, increasing shortness of breath with history of COPD. No fevers or chills, no increased leg swelling. EXAM Physical Exam Narrative Exam Narrative: Afebrile. Vital signs noted. Nontoxic-appearing. On my examination cardiovascular examination reveals a regular rate and rhythm. Decreased breath sounds bilateral bases but no overt wheezing, mild tachypnea but no accessory muscle use. Abdomen soft and nontender with normoactive bowel sounds. No guarding or rebound. No appreciable pedal edema bilaterally. Const Vital Signs: 02/18/25 20:51 02/18/25 20:58 02/18/25 21:10 Temperature 99.4 F H Temperature Source Oral Pulse Rate 113 H 99 Respiratory Rate 25 H 28 H Respiratory Effort Short of Breath Respiratory Depth Deep Respiratory Pattern Tachypnea Blood Pressure 138/61 H Blood Pressure Mean 86 Pulse Ox 99 Oxygen Delivery Method Nasal Cannula Nasal Cannula Oxygen Flow Rate (L/min) 2 21 02/18/25 21:56 02/18/25 22:00 02/18/25 22:20 Temperature 98.3 F 98.5 F Temperature Source Oral Oral Pulse Rate 97 99 Respiratory Rate 22 H 22 H Respiratory Effort Respiratory Depth Respiratory Pattern Blood Pressure 117/51 L 121/64 H Blood Pressure Mean 73 83 Pulse Ox 98 97 96 Oxygen Delivery Method Nasal Cannula Nasal Cannula Nasal Cannula Oxygen Flow Rate (L/min) 2 2 2 02/18/25 23:00 Temperature 98.5 F Temperature Source Oral Pulse Rate 101 H Respiratory Rate 26 H Respiratory Effort Respiratory Depth Respiratory Pattern Blood Pressure 141/59 H Blood Pressure Mean 86 Pulse Ox 98 Oxygen Delivery Method Nasal Cannula Oxygen Flow Rate (L/min) 2 MDM MDM MDM Narrative Medical decision making narrative: Differential diagnosis includes but not limited to COPD exacerbation versus pneumonia versus pneumothorax. History and physical does not support pneumothorax. I reviewed her prior records, and she was recently seen in the emergency department and was going to be discharged, and had a BNP of 4400 but this was improved from 9600. Family noted that they were having difficulty caring for her at home and wanted SNF placement hence, she was admitted [facility]. Says that she had history of pneumonia. I will repeat a chest x-ray and basic laboratory work. She is already feeling improved. EKG had been obtained and interpreted by myself independently as sinus tachycardia 105 bpm without ectopy or acute ST changes. No STEMI. I reviewed her laboratory work and she has slight elevation of her white count of 12.2 which I think may be from her steroid use. Hemoglobin is stable at 10.9 when compared to prior labs. Platelet count 337. Initial potassium elevated 6.0, but it was hemolyzed. Repeat normal at 4.7, BUN of 25 and creatinine slightly elevated at 1.26 when compared to prior labs but this could be from furosemide. Glucose elevated at 174 but normal anion gap of 11. BNP is elevated at 3811 but this is improved when compared to prior in the 3999's as well. Chest x-ray in 1 view interpreted by myself independently shows no evidence of pneumonia, no consolidation, no pneumothorax. I reviewed the radiology report which confirms my independent interpretation. Repeat examination does show that she is resting comfortably and sleeping with good oxygen saturation on her nasal cannula oxygen. At this point in time, I do not feel she needs readmission to the hospital. She states she is on steroids and nebulizer treatments at the [facility] facility. She is motivated for discharge. Disposition is discharged home in stable condition. History & Record Review Discussion w/independent historian: Patient Additional record(s) reviewed:: Prior inpatient record, Prior ED visit and Prior labs Lab Data Attestation: I reviewed the patient's lab results. Labs: Laboratory Results - last 24 hr 02/18/25 02/18/25 21:07 23:15 WBC 12.2 H RBC 3.91 L Hgb 10.9 L Hct 35.8 L MCV 91.6 MCH 27.9 MCHC 30.4 L RDW Std Deviation 52.1 H RDW Coeff of Vijay 15.9 H Plt Count 337 MPV 11.5 Immature Gran % (Auto) 0.900 Neut % (Auto) 78.7 H Lymph % (Auto) 12.5 L [place] % (Auto) 6.7 Eos % (Auto) 1.0 Baso % (Auto) 0.2 Absolute Neuts (auto) 9.6 H Absolute Lymphs (auto) 1.53 Nucleated RBC % 0 Sodium 136 Potassium 6.0 H* 4.7 Chloride 97 L Carbon Dioxide 28.1 Anion Gap 11 BUN 25 H Creatinine 1.26 H Estim Creat Clear Calc 34.58 L Est GFR (MDRD) Non-Af 43 L BUN/Creatinine Ratio 19.9 Glucose 174 H Calcium 10.7 NT pro BNP II 3811 H Radiography Diagnostic Testing: Clinical Impression(s) from Imaging Studies Chest X-Ray 02/18/25 22:30 IMPRESSION: Low lung volumes and body habitus limits evaluation. No obvious acute finding. Reading Location: [facility] Discharge Plan Triage Chief Complaint: Shortness of Breath ED Provider: Billy Kothari Dx/Rx/DC Orders Clinical Impression: Dyspnea, COPD exacerbation Instructions: ED COPD Flare, ED Dyspnea Prescriptions: No Action Januvia 50 mg tablet 50 mg PO DAILY Jardiance 10 mg tablet 10 mg PO DAILY multivitamin Tablet 1 tab PO DAILY pravastatin 20 mg tablet 20 mg PO DAILY aspirin 81 MG tablet,chewable 81 mg PO DAILY metoprolol tartrate 25 MG tablet 25 mg PO BID magnesium oxide 400 MG tablet 400 mg PO BID pantoprazole 40 MG tablet 40 mg PO DAILY roflumilast 500 mcg tablet 500 mcg PO DAILY ascorbic acid (vitamin C) [Vitamin C] 250 mg tablet 250 mg PO DAILY insulin lispro [Humalog KwikPen Insulin] 100 unit/mL Insulin Pen 10 unit subcut TIDAC Rx Instructions: Hold if glucose less than 120 mg/dl Mounjaro 5 mg/0.5 mL pen injector 5 mg subcut QWEEK Patient Comments: PT STATES SHE SOMETIMES TAKES IT ON THURSDAY, SOMETIMES ON FRIDAYS. menthol-zinc oxide [CalaSoothe] 0.44-20.6 % ointment 1 applic topical 4X/DAY PRN (Reason: skin irritation) psyllium husk [Daily Fiber] 0.4 gram capsule 0.4 g PO DAILY mecobalamin (vitamin B12) [B12 Active] 1,000 mcg tablet,chewable 1,000 mcg PO DAILY azelastine 137 mcg (0.1 %) spray,non-aerosol 1 - 2 spray INTRANASAL BID acetaminophen 500 mg Tablet 1,000 mg PO Q6H PRN (Reason: Pain Score 1-3) Rocklatan 0.02-0.005 % Drops 1 drp EACH EYE DAILY potassium chloride [K-Tab] 20 mEq tablet extended release 20 meq PO BID ipratropium-albuterol 0.5 mg-3 mg(2.5 mg base)/3 mL Solution For Nebulization 3 ml inhalation Q6H.RT Qty: 120 0RF furosemide [Lasix] 20 mg tablet 60 mg PO BID Qty: 180 0RF albuterol sulfate 90 mcg/actuation HFA aerosol inhaler 2 puff inhalation Q6H PRN (Reason: shortness of breath or wheezing) cetirizine 10 mg tablet 10 mg PO DAILY hydroxyzine HCl 25 mg tablet 12.5 mg PO QHS guaifenesin [Mucinex] 600 mg Tablet Extended Release 12hr 600 mg PO BID Qty: 0 0RF prednisone 20 mg Tablet See Taper PO BREAKFAST Qty: 15 0RF Taper: Prednisone Taper 40 mg WITH BREAKFAST for 3 Days and 0 Hour 30 mg WITH BREAKFAST for 3 Days and 0 Hour 20 mg WITH BREAKFAST for 3 Days and 0 Hour 10 mg WITH BREAKFAST for 3 Days and 0 Hour gabapentin 100 mg capsule 100 mg PO QHS 3 Days Qty: 3 0RF diltiazem HCl 180 mg capsule,ext.rel 24h degradable 180 mg PO DAILY ipratropium bromide 21 mcg (0.03 %) spray,non-aerosol 1 - 2 spray INTRANASAL Q6H PRN (Reason: allergy symptoms) insulin glargine [Lantus Solostar U-100 Insulin] 100 unit/mL (3 mL) insulin pen 20 unit subcut BID (DME) lancets [TRUEplus Lancets] 28 gauge misc MISCELLANEOUS Breztri Aerosphere 160-9-4.8 mcg/actuation HFA aerosol inhaler 2 inh inhalation BID Entresto 24-26 mg tablet 1 tab PO BID Qty: 60 11RF Primary Care Provider: Ramone Smiley Referrals: Ramone Smiley MD [Primary Care Provider] - Activity Restrictions/Additional Instructions: Continue your steroids and your nebulizer treatments as previously directed. Your chest x-ray did not show pneumonia today. Continue to wear your nasal cannula oxygen. Print Language: Spanish Disposition Disposition: Home, Self Care
[2025-02-18] MEDS: MethylPREDNISolone 125 MG/2 ML Vial 60 MG IV (22:28)
--- NOTE | 2025-02-18 22:30 | RAD_ITS ---
PROCEDURE: CHEST 1 VIEW (PORTABLE) 02/18/2025 REASON FOR EXAM: SHORTNESS OF BREATH TECHNIQUE: Frontal view of the chest. COMPARISON: Chest radiograph 02/15/2025. FINDINGS: Hardware: None. Heart: Cardiac and mediastinal contours are stable. Calcific plaque of the thoracic aorta. Lungs: Low lung volumes and body habitus limits evaluation. Bibasilar atelectasis. No large focal consolidation, pleural effusion or pneumothorax. Bones: Degenerative changes are identified within the thoracic spine. RAD/Chest 1 View (Portable) IMPRESSION: Low lung volumes and body habitus limits evaluation. No obvious acute finding. Reading Location: [id number]
[2025-02-18 22:36] LABS: Absolute Lymphocyte Count 1.53 X10^3/uL (0.83-4.51); Absolute Neutrophil Count 9.6 X10^3/uL (2.0-7.7); Basophil# 0.02 X10^3/uL; Basophil% 0.2 % (0-1); Eosinophil# 0.12 X10^3/uL; Hematocrit 35.8 % (37-47); Hemoglobin 10.9 g/dL (12.0-15.0); Lymphocyte # 1.53 X10^3/ul (0.83-4.51); Lymphocyte % 12.5 % (19-41); Mean Corp Hgb Conc 30.4 g/dL (32-36); Mean Corpuscular Hgb 27.9 pg (27.0-32.0); Mean Corpuscular Volume 91.6 fL (81-99); Mean Platelet Vol. 11.5 fl (6.2-12.0); Monocyte# 0.82 X10^3/uL; Monocyte% 6.7 % (0-10); NRBC Flagged by Analyzer 0 % (0-5); Neutrophil % 78.7 % (47-70); Platelet Count 337 K/mm3 (150-450); RBC Distribution Width CV 15.9 % (11.6-14.6); RBC Distribution Width SD 52.1 fl (35.1-43.9); Red Blood Count 3.91 M/mm3 (4.2-5.4); White Blood Count 12.2 K/mm3 (4.4-11.0)
--- OUTSIDE RECORDS SUMMARY | 2025-02-18 22:43 | XMS RPT_ITS | CCD ---
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 Ramone Smiley Primary Care Provider Dr. Ramone Smiley Referring Provider Dr. Michael Carmen Attending Provider Juan Carlos ADVERTISING SPACE CLERK, ADVERTISING SPACE CLERK-C Ara Attending Provider Dr. Angela Moncada Attending Provider [phone] Baljit LEARY, Ramone Noe Primary Care Provider [phone] Dr. Ramone Smiley Primary Care Provider Dr. Ramone Smiley Referring Provider DAVY Blackmon Attending Provider Ramone Smiley MD Primary Care Provider [phone] Dr. Ramone Smiley Primary Care Provider [phone] Dr. Ramone Smiley Referring Provider [phone] DAVY Peck Attending Provider Dr. Robert Allison Emergency Provider Dr. Heydi Amaya Admit Provider Dr. Heydi Amaya Other Provider Dr. Nestor Bartlett Attending Provider [phone] Dr. Nestor Bartlett Other Provider Dr. Rmaone Veras Other Provider Dr. Sandeep Denson Attending Provider Unavailable Dr. Sandeep Denson Other Provider Unavailable Dr. Ramone Smiley Primary Care Provider Dr. Queta Cortez Emergency Provider [phone] Nestor Bartlett Admit Provider Dr. Nestor Bartlett Other Provider Dr. Gabriel Byrd Other Provider Dr. Sunny Bell Attending Provider Dr. Sunny Bell Other Provider Baljit LEARY, Dr. Pack Primary [...] Kate LEARY, Dr. Melba Gayle Other Provider Herrera LEARY, Dr. Hudsno Attending Provider Baljit LEARY, Dr. Pack Primary Care Provider Baljit LEARY, Dr. Pack Attending Provider [phone] Baljit LEARY, Dr. Pack Referring Provider [phone] Irvin RAYMUNDO, Dr. Gregorio Emergency Provider Irvin RAYMUNDO, Dr. Gregorio Attending Provider Nash EJAN-C, Whitney Attending Provider Leydi LEARY, Dr. Rocha Emergency Provider Michi RAYMUNDO, Dr. Valdes Admit Provider Michi RAYMUNDO, Dr. Valdes Attending Provider Herrera LEARY, Dr. Hudson Attending Provider Antoni LEARY, Dr. Daniels Emergency Provider [phone] Tono Carbajal Attending Provider Keegan RAYMUNDO, Dr. Jones Emergency Provider Dhruv RAYMUNDO, Dr. Baez Admit Provider Dr. Nestor Bartlett DO Attending Provider Smiley, Ramone Primary Care Unavailable Smiley, Ramone Attending Unavailable Smiley, Ramone Referring Unavailable Smiley, Ramone Primary Care Unavailable Asha Anguiano Attending Unavailable Asha Anguiano Referring Unavailable Smiley, Ramone Primary Care Unavailable Smiley, Ramone Attending Unavailable Smiley, Ramone Referring Unavailable Smiley, Ramone Primary Care Unavailable Smiley, Ramone Attending Unavailable Smiley, Ramone Referring Unavailable Smiley, Ramone Primary Care Unavailable Smiley, Ramone Attending Unavailable Smiley, Ramone Referring Unavailable Smiley, Ramone Primary Care Unavailable Sandeep Carlton Consulting Unavailable Sandeep Carlton Admitting Unavailable Melba Hartmann Attending Unavailable Lucio Borden Consulting Unavailable Marcelina Soto Consulting Unavailabl e Lucio Borden Attending Unavailable Lucio Borden Admitting Unavailable Smiley, Ramone Primary Care Unavailable Smiley, Ramone Primary Care Unavailable Ethan Darnell Attending Unavailable Smiley, Ramone Primary Care Unavailable Jeevan Yoder Attending Unavailable Jg Bryan Attending Unavailable Smiley, Ramone Primary Care Unavailable Smiley, Ramone Primary Care Unavailable Kwaku Marcial Attending Unavailable Reodica, Billy Referring Unavailable Smiley, Ramone Primary Care Unavailable Reodica, Billy Attending Unavailable Smiley, Ramone Referring Unavailable Smiley, Ramone Attending Unavailable Smiley, Ramone Primary Care Unavailable Smiley, Ramone Primary Care Unavailable Smiley, Ramone Attending Unavailable Smiley, Ramone Referring Unavailable Sandeep Carlton Admitting Unavailable Sandeep Carlton Consulting Unavailable Melba Hartmann Attending Unavailable Smiley, Ramone Primary Care Unavailable Tereletsky, Lucio Consulting Unavailable Nagajoronald, Hughapradee Consulting Unavailabl yoni Hartmann, Melba Nalini Consulting Unavailable Tereletsky, Lucio Consulting Unavailable Tereletsky, Lucio Admitting Unavailable Tereletsky, Lucio Attending Unavailable Smiley, Ramone Primary Care Unavailable Eshenaur PAJason Referring Unavailable Smiley, Ramone Primary Care Unavailable [place] PAJason Attending Unavailable Terbessy, Lucio Admitting Unavailable Terandradeky, Lucio Attending Unavailable Smiley, Ramone Primary Care Unavailable Nash ADVERTISING SPACE CLERK, Whitney Attending Unavailable Smiley, Ramone Primary Care Unavailable Smiley, Ramone Referring Unavailable Gabriel Byrd Referring Unavailable Smiley, Ramone Primary Care Unavailable Gabriel Byrd Attending Unavailable Becca Silverman Attending Unavailable Sandeep Carlton Attending Unavailable Smiley, Ramone Primary Care Unavailable Charles, Bele Attending Unavailabl e Smiley, Ramone Primary Care Unavailable Nestor Bartlett Admitting Unavailable Nestor Bartlett Consulting Unavailable Heydi Amaya Attending Unavailable Heydi Amaya Consulting Unavailable Tono Carbajal Attending Unavailable Smiley, Ramone Primary Care Unavailable Tereletsky, Lucio Consulting Unavailable Tereletsky, Lucio Attending Unavailable Tereletsky, Lucio Admitting Unavailable Smiley, Ramone Primary Care Unavailable Nestor Bartlett Attending Unavailable Nash ADVERTISING SPACE CLERKWhitney Referring Unavailable Nash ADVERTISING SPACE CLERK, Whitney Attending Unavailable Smiley, Ramone Primary Care Unavailable Smiley, Ramone Primary Care Unavailable Smiley, Ramone Attending Unavailable Smiley, Ramone Referring Unavailable Dr. Nestor Bartlett DO Other Provider Jose Luis LEARY, Dr. Soliz Attending Provider Dr. Heydi Amaya MD Other Provider Allergies Allergy Classification Reported Allergen(s) Allergy Type Date of Onset Reaction(s) Facility (20 sources) Adhesive Tape; Translations: [ADHESIVE TAPE] allergy to substance 5 NEEDS FOLLOW-UP [facility] Work Phone: [phone] Comment on above: CLOTH TAPE (20 sources) amoxicillin; Translations: [amoxicillin] drug allergy 5 yeast infection [facility] Work Phone: (2 sources) cephalexin drug allergy 5 [facility] Work Phone: (2 sources) clopidogrel drug allergy 5 [facility] Work Phone: (20 sources) Cephalexin; Translations: [cephalexin monohydrate] Drug Allergy 2 Rash [facility] (20 sources) clopidogrel; Translations: [clopidogrel bisulfate] Drug Allergy 1 Hives [facility] Work Phone: (2 sources) cloth tap Allergy to substance 2 Other [facility] Work Phone: (5 sources) Cephalexin Drug Allergy 5 [facility] Work Phone: (5 sources) tape [Other] Propensity to adverse reactions 5 [facility] Medications Current Medications Medication Drug Class(es) Dates [...] 1 TABLET PO EVERY 4 HOURS NEEDED 06 06November 22, 2018 12:00am November 29, 2018 12:08am [...] 19, 2018 1:00am October 26, 2018 1:09am [id number] 200 actuat albuter ol 0.09 mg/actuat metered dose inhaler (20 sources) beta2-Adrenergic Agonist Start: 02-09-2025 Start: 08-16-2018 take 1 puff(s) by in [...] AERS As needed - 90mcg/inh ALBUTEROL SULFATE [id number] Se Good MD Start: 08-29-2015 VENTOLIN HFA 1 08 (90 Base) MCG/ACT AERS As needed - 90mcg/inh ALBUTEROL SULFATE [id number] Se Good MD Start: 12-25-2014 End: 01-12-2018 [...] MINUTES. FOR WHEEZING AND SHORTNESS OF BREATH. albuterol 0.833 mg/ml / ipratropium bromide 0.167 mg/ml inhalation solution (6 sources) Anticholinergic, beta2-Adrenergic Agonist Start: 02-06-2025 ascorbic acid 250 mg oral ta blet (20 sources) Vitamin C Start: 08-13-2023 Start: [...] 0 Active take 1 tablet by martin th once daily ascorbic acid, vitamin C, (VITAMIN [...] TABS One tablet by mouth daily ASPIRIN [id number] Kadie Álvarez RN Start: 08-23-2015 take 1 tablet by martin once daily ASPIRIN 81 MG TABS One tablet by mouth daily ASPIRIN [id number] Kadie Álvarez RN take 1 tablet by martin once daily aspirin, enteric coated (ASPIRIN, ENTERIC [...] in each nostril twice daily AZELASTINE HCL [id number] Kadie Álvarez RN Start: 08-23-2015 take 1-2 spray(s) na deepali route twice daily ASTEPRO 0.15 % SOLN 1-2 sprays in each nostril twice daily AZELASTINE HCL [id number] Kadie Álvarez RN take 1-2 spray(s) na [...] MCG/ACT AERO 2 puffs daily BUDESONIDE-FORMOTEROL FUMARATE [id number] Kadie Álvarez RN Start: 08-23-2015 SYMBICORT 160- 4.5 MCG/ACT AERO 2 puffs daily BUDESONIDE-FORMOTEROL FUMARATE [id number] Kadie Álvarez RN take 1 puff(s) by in halation twice daily budesonide-formoterol (SYMBICORT) 160-4.5 mcg/actuation inhaler Indications: Other iron deficiency anemia Inhale 1 Puff as instructed twice daily. 0 Active Comment on above: Inhale 1 Puff as ins tructed twice daily. Negtkqvicg-Vbrdgcmz-Pwuuyisp ol (13 sources) Corticosteroid, beta2-Adrenergic Agonist Start: 01-07-2025 Start: 01-07-2025 Budesonide-Gly copyr-Formoterol (Breztri Aerosphere) 160-9-4.8 mcg/actuation HFA aerosol inhaler Active 2 NMA INHALATION TWICE A DAY January 07, 2025 12:00am Start: 01-07-2025 Budesonide-Gly copyr-Formoterol [Budesonide 160 Mcg-Glycopyr 9 Mcg-Formot 4.8 Mcg/Actuation Hfa Inhaler] (Budesonide 160 Mcg-Glycopyr 9 Mcg-Formot 4.8 ) 160-9-4.8 mcg/actuation HFA aerosol inhaler Active NMA INHALATION January 07, 2025 12:00am cetirizine hydrochloride 10 mg oral tablet (5 sources) Histamine-1 Receptor Antagonist Start: 02-09-2025 clindamycin 300 mg oral capsule (20 sources) [...] Start: 01-07-2025 take 1 capsule by mo [facility] every twenty-four hours Diltiazem Hcl 180 mg capsule,ext.rel 24h degradable Active mg PO January 07, 2025 12:00am Start: 08-16-2018 End: 01-07-2025 Start: 08-29-2015 take 1 tablet by martin once daily DILT-XR 180 MG [id number] One tablet by mouth daily DILTIAZEM HCL [id number] Se Good MD Start: 08-29-2015 take 1 tablet by martin th once daily DILT-XR 180 MG [id number] One tablet by mouth daily DILTIAZEM HCL [id number] Se Good MD Comment on above: Take 180 mg by mouth once daily. empagliflozin 10 mg oral tab let (20 sources) Sodium-Glucose Cotransporter 2 Inhibitor Start: 10-18-2020 furosemide 20 mg oral tablet (20 sources) Loop Diuretic Start: 02-06-2025 Start: 01-15-2025 End: 02-06-2025 Start: 01-24-2020 End: 06-21-2020 gabapentin 100 mg oral capsu le (20 sources) Anti-epileptic Agent Start: 08-13-2023 End: 02-17-2025 Start: 08-13-2023 take 1 capsule by mo [facility] at bedtime Gabapentin 100 mg capsule Active [...] 24, 2020 12:00am August 13, 2023 2:57pm 12 hr guaiFENesin 600 mg ext ended release oral tablet (1 source) Start: 02-17-2025 hydrOXYzine hydrochloride 25 mg oral tablet (5 sources) Antihistamine Start: 02-09-2025 3 ml insulin glargine 100 un t/ml pen injector (13 sources) Insulin Analog Start: 01-07-2025 Start: 01-07-2025 [...] UNIT SC BEFORE MEALS AND AT BEDTIME 0 December 30, 2023 12:00am Start: 01-21-2016 End: 01-12-2018 Start: 01-21-2016 End: 01-12-2018 Insulin Lispro 100 UNIT/ML c artridge Discontinued 2 U SC THREE TIMES A DAY January 21, 2016 12:00am January 12, 2018 10:14am ipratropium bromide 0.021 mg /actuat metered dose nasal spray (13 sources) Anticholinergic Start: 01-07-2025 Start: 01-07-2025 Ipratropium Br omide 21 mcg (0.03 %) spray,non-aerosol Active 1 - 2 NMA INTRANASAL EVERY 6 HOURS as needed for allergy symptoms January 07, 2025 12:00am latanoprost 0.05 mg/ml / netarsudil 0.2 mg/ml ophthalmic solution (20 sources) Prostaglandin Analog, Rho Kinase Inhibitor Start: 01-15-2024 End: 01-15-2025 Start: 01-15-2024 End: 01-15-2025 Netarsudil-Latanoprost (Rock latan) 0.02-0.005 % Drops Active 1 NMA EACH EYE DAILY January 15, 2025 12:00am magnesium oxide 400 mg oral tablet (20 sources) Start: 08-16-2018 Comment on above: Take 400 mg by mouth twice daily. mecobalamin 1 mg chewable tablet (12 sources) Start: 01-15-2025 Menthol / Zinc Oxide [...] Take 40 mg by mouth once daily. pravastatin sodium 20 mg oral tablet (20 sources) HMG-CoA Reductase Inhibitor Start: 08-23-2015 End: 12-06-2021 Comment on above: Take 20 mg by mouth once daily. predniSONE 20 mg oral tablet (20 sources) Start: 02-17-2025 Start: 02-06-2025 End: 02-17-2025 Start: 01-24-2025 Start: 05-30-2024 End: 01-15-2025 Start: [...] POWD 3 times daily with water PSYLLIUM [id number] Kadie Álvarez RN Roflumilast (20 sources) Phosphodiesterase [...] mg / valsartan 26 mg oral tablet (10 sources) Angiotensin 2 Receptor Jefe Start: 02-07-2025 Start: 01-24-2025 SITagliptin 50 mg oral tablet (20 sources) Dipeptidyl Peptidase 4 Inhibitor Start: 01-21-2016 End: 10-18-2020 Comment on above: Take 50 mg by mouth once daily. Tirzepatide (Mounjaro) 5 mg/0.5 mL pen injector (1 source) Start: 01-15-2025 Tirzepatide (Mounjaro) 5 mg/0.5 mL pen injector Active 5 mg SC EVERY WEEK January 15, 2025 12:00am Vitamin B-Bpbdxhtqqonu-Vpvb ral (15 sources) Start: 12-02-2019 take 250 mg by mouth once daily Vitamin V-Wjbfmwjznfsm-Scf eral Active 250 MG PO DAILY December 02, 2019 11:46am Start: 12-02-2019 End: 07-18-2023 take 250 mg by mouth once daily Vitamin R-Reikkjbqjrzl-Jiplaos Discontinued 250 MG PO DAILY December 02, 2019 12:00am July 19, 2023 12:34am Start: 12-02-2019 End: 07-18-2023 take 250 mg by mouth once daily Vitamin D-Splqxpykhtll-Qubnmky Discontinued 250 MG PO DAILY December 01, 2019 11:00pm July 18, 2023 11:34pm Start: 12-02-2019 take 250 mg by mouth once daily Vitamin L-Puceejrzvjfh-Sfjorno Active 25 0 MG PO DAILY December 01, 2019 11:00pm Start: 12-02-2019 take 250 mg by mouth once daily Vitamin U-Clgbmmrmhpiy-Sbpcgwt Active 25 0 MG PO DAILY December [...] Sig (Original) acetaminophen 500 mg oral tablet (20 sources) Start: 12-30-2023 End: 01-15-2025 Start: 12-30-2023 End: 01-15-2024 take 2 tablets by mouth every eight hours Acetaminophen 500 mg Tablet Discontinued 1000 mg PO EVERY 8 HOURS 0 December 30, 2023 12:00am January 15, [...] HOURS as needed for pain 10 December 10, 2021 December 12, 2021 12:00am December [...] One tablet by mouth daily AMLODIPINE BESYLATE [id number] Se Good MD apixaban 5 mg oral tablet (20 sources) Factor Xa Inhibitor Start: 01-15-2024 End: 01-07-2025 Start: 12-30-2023 End: 01-15-2024 azithromycin 250 mg oral tab let (14 sources) Macrolide Antimicrobial Start: 01-07-2025 End: 01-15-2025 Start: 02-26-2022 Azithromycin A ctive 0 PO .COMPLEX 6 February 26, 2022 12:00am For 250 mg [...] lower legs 1-2 times daily BETAMETHASONE DIPROPIONATE [id number] Kadie Álvarez RN Start: 08-23-2015 BETAMETHASONE DIPROPIONATE 0.05 % LOTN apply to lower legs 1-2 times daily BETAMETHASONE DIPROPIONATE [id number] Kadie Álvarez RN bisacodyl 10 mg rectal suppo sitory (20 sources) Stimulant Laxative Start: 12-30-2023 End: 01-15-2024 Start: 08-23-2015 take 1 tablet by martin once daily as needed BISACODYL EC 5 MG TBEC One tablet by mouth daily as needed BISACODYL [id number] Kadie Álvarez RN calcium carbonate (2 sources) Start: 08-23-2015 take 1 tablet by mouth once daily CALCIUM 600 600 MG TABS One tablet by mouth daily CALCIUM CARBONATE [id number] Kadie Álvarez RN Calcium Carbonate / vitamin [...] 4 MG TABS As needed CHLORPHENIRAMINE MALEATE [id number] Se Good MD cholecalciferol 0.025 mg oral [...] once daily. ciprofloxacin 250 mg oral tablet (18 sources) Quinolone Antimicrobial Start: 023 End: COD LIVER OIL CAPS (7 sources) Start: 015 take 1 tablet by mouth once daily COD LIVER OIL CAPS One tablet by mouth daily COD LIVER OIL CAPS [id number] Kadie Álvarez RN take 1 capsule by mouth once neftaly ly Cod Liver Oil cap Indications: Other iron deficiency anemia Take 1 capsule by mouth once daily. 0 Active Comment on above: Take 1 capsule by [facility] once daily. Cod Liver Oil capsule (4 [...] 2:52pm docusate sodium 50 mg / sennosides, [facility] 8.6 mg oral tablet (20 sources) Start: [...] 9:27am doxycycline monohydrate 100 mg oral capsule (14 sources) Tetracycline-class Drug Start: 05-30-2024 End: 01-07-2025 [...] 1 capsule by mo uth once daily Fiber Active 1 CAP PO DAILY August 13, 2023 1:00am Start: 08-13-2023 take 1 capsule by mo uth once daily Fiber Active 1 CAP PO [...] (20 sources) Sulfonylurea Start: 01-24-2020 End: 10-18-2020 hydroCHLOROthiazide 25 mg / spironolactone 25 mg oral tablet (5 sources) Thiazide Diuretic, Aldosterone Antagonist Start: 02-09-2025 End: 02-13-2025 insulin aspart, human 100 unt/ml injectable solution [...] units SQ daily at bedtime INSULIN DETEMIR [id number] Mariana Finley RN Start: 08-23-2015 inject 28 [IU] by avila bcutaneous injection once daily LEVEMIR 100 UNIT/ML SOLN 28 units SQ daily INSULIN DETEMIR [id number] Kadie Álvarez RN Start: 08-23-2015 take 15 [IU] by subc utaneous injection once daily at bedtime LEVEMIR 100 UNIT/ML SOLN 15 units SQ daily at bedtime INSULIN DETEMIR [id number] Mariana Finley RN Start: 08-23-2015 take 28 [IU] by subc utaneous injection once daily LEVEMIR 100 UNIT/ML SOLN 28 units SQ daily INSULIN DETEMIR [id number] Kadie Álvarez RN inject 52 [IU] by [...] Hold if glucose less than 130 mg/dl levoFLOXacin 750 mg oral tablet (11 sources) Quinolone Antimicrobial Start: 01-24-2025 End: 01-31-2025 linaclotide 0.29 mg oral capsule (2 sources) Guanylate Cyclase-C Agonist Start: 08-23-2015 take 1 tablet by mouth once daily LINZESS 290 MCG CAPS One tablet by mouth daily LINACLOTIDE [id number] Kadie Álvarez RN Start: 08-23-2015 take 1 tablet by martin th once daily LINZESS 290 MCG CAPS One tablet by mouth daily LINACLOTIDE [id number] Kadie Álvarez RN lisinopril 40 mg oral [...] One tablet by mouth daily MAGNESIUM CAPS [id number] Kadie Álvarez RN metFORMIN hydrochloride 1000 mg oral tablet (2 sources) Biguanide take 1 tablet by mouth twice daily GLUCOPHAGE 1000 MG TABS One tablet by mouth twice daily METFORMIN HCL [id number] Julita Chau NP metFORMIN hydrochloride 1000 mg / SITagliptin 50 mg oral tablet (4 sources) Biguanide, Dipeptidyl Peptidase 4 Inhibitor Start: 5 End: 5 take 1 tablet by mouth twice daily JANUMET 50-1000 MG TABS One tablet by mouth twice daily SITAGLIPTIN-METFORMI N HCL [id number] Se Good MD Start: 08-23-2015 End: 08-29-2015 take 1 tablet by mouth twice daily JANUMET 50-1000 MG TABS One tablet by mouth twice daily SITAGLIPTIN-METFORMIN HCL [id number] Se Good MD Start: 08-23-2015 take 1 tablet by martin th twice daily JANUMET 50-1000 MG TABS One tablet by mouth twice daily SITAGLIPTIN-METFORMIN HCL [id number] Kadie Álvarez RN miSOPROStol 0.2 mg oral [...] / nitrofurantoin, monohydrate 75 mg oral capsule (20 sources) Nitrofuran Antibacterial Start: 07-19-2023 End: 07-30-2023 [...] 2020 9:26am ondansetron 8 mg oral tablet (20 sources) Serotonin-3 Receptor Antagonist Start: 07-15-2023 End: 07-30-2023 oxyCODONE hydrochloride 5 mg oral tablet (14 sources) Opioid Agonist Start: 12-30-2023 End: 01-15-2024 Start: 12-30-2023 Oxycodone Acti ve 2.5 MG PO EVERY 4 HOURS NEEDED 0 3 December 30, 2023 Oxycodone 2.5 mg for [...] by mouth o nce daily as needed. microencapsulated potassium chloride 20 meq extended release oral tablet (20 sources) Start: 02-04-2025 End: 02-04-2025 Start: 01-24-2025 End: 02-04-2025 Start: 01-15-2025 End: 01-24-2025 Start: 12-06-2021 End: [...] on above: Take 2 tablets by mo [facility] twice daily. Potassium Chloride 20 MEQ Tab.Er.Prt (2 sources) Start: 12-02-2019 End: 12-06-2021 Potassium Chloride 20 MEQ Tab.Er.Prt Discontinued 2 {tbl} PO TWICE A DAY December 02, 2019 12:00am December 06, 2021 3:29pm promethazine hydrochloride 12.5 mg oral tablet (20 sources) Phenothiazine Start: 01-24-2020 End: 10-18-2020 Start: 08-23-2015 take 1 tablet by martin th three times daily as needed PROMETHAZINE HCL 12.5 MG TABS One tablet by mouth three times daily as needed PROMETHAZINE HCL [id number] Kadie Álvarez RN PSYLLIUM HUSK, BULK, MISC [...] One tablet by mouth daily RANITIDINE HCL [id number] Kadie Álvarez RN Comment on above: Take 300 mg by mouth once daily. sennosides, penitentiary 8.6 mg oral tablet (5 sources) take 1 tablet by mouth twice daily senna (SENNA LAXATIVE) 8.6 mg tab Take 8.6 mg by mouth twice daily. 0 Active Comment on above: Take 8.6 mg by mouth twice daily. sodium chloride 0.111 meq/ml nasal spray (5 sources) sodium chloride (SALINE MIST) 0.65 % nasal spray Use 1 [place] in the nose as needed. 0 Active Comment on above: Use 1 [place] in the n ose as needed. sucralfate 1000 mg oral tablet (20 sources) Aluminum Complex Start: 03-18-20 End: 08-14-20 sulfamethoxazole 800 mg / trimethoprim 160 mg oral tablet (20 sources) Dihydrofolate Reductase Inhibitor Antibacterial, Sulfonamide Antimicrobial Start: 11-23-19 End: 11-26-19 Start: 11-22-2018 End: 11-25-2018 Sulfamethoxazole-Trimethopri m 1 TABLET tablet Discontinued 1 {tbl} PO TWICE A DAY 6 3 November 22, 2018 12:00am November 24, 2018 [...] End: 10-18-2020 Start: 01-24-2020 End: 10-18-2020 Tiotropium Williamson (Spiriva With Handihaler) 18 mcg capsule, w/inhalation device Discontinued 1 NMA INHALATION NEEDED as needed for Sob &/Or Wheezing January 24, 2020 12:00am October 18, 2020 9:28am puncture 1 cap using device; one dose = 2 inhalations Start: 01-24-2020 End: 10-18-2020 Tiotropium Williamson (Spiriva With Handihaler) 18 mcg capsule, w/inhalation device Discontinued 1 PUFF INHALATION NEEDED January 24, 2020 12:00am October 18, 2020 9:28am puncture 1 cap using device; one dose = 2 inhalations Start: 08-23-2015 SPIRIVA HANDIH ALER 18 MCG CAPS as needed TIOTROPIUM BROMIDE MONOHYDRATE [id number] Kadie Álvarez RN Start: 08-23-2015 SPIRIVA HANDIH ALER 18 MCG CAPS as needed TIOTROPIUM BROMIDE MONOHYDRATE [id number] Kadie Álvarez RN Start: 12-25-2014 End: 01-12-2018 [...] 10:27am triamcinolone acetonide 0.001 mg/mg topical ointment (13 sources) Corticosteroid Start: 01-07-2025 End: 01-15-2025 Vitamin V-Prxlmivrezqh-Nnudcam 500 MG tablet,chewable (2 sources) Start: 12-02-2019 End: 07-18-2023 Vitamin R-Eeolnzpqnynf-Xjqncvu 500 MG tablet,chewable Discontinued 250 mg PO DAILY December 02, 2019 12:00am July 19, 2023 12:34am Problems Active Problems Problem Classification Problem Date Documented Da te Episodic/Chronic Abdominal pain (5 sources) Abdominal pain; Translations: [Unspecified abdominal pain] 11-13-2006 Episodic Acute and unspecified renal failure (20 sources) Acute renal failure syndrome; Translations: [Acute kidney failure, unspecified] 12-02-2019 Episodic Acute bronchitis (13 sources) Acute exacerbation of chronic bronchitis; Translations: [...] on above: lumpectomy in 2003 Cardiac dysrhythmias (11 sources) Irregular heart beat; Translations: [Cardiac arrhythmia, [...] encounter] 11-20-2018 Episodic Congestive heart failure; nonhypertensive (20 sources) Acute exacerbation of chronic congestive heart failure; Translations: [Heart failure, unspecified] Onset: 5 01-21-2025 Chronic Coronary atherosclerosis and other heart disease (20 sources) Coronary arteriosclerosis; Translations: [Atherosclerotic heart disease of [place] coronary artery without angina pectoris] Onset: 5 12-30-2023 Chronic Deficiency and other anemia (8 sources) Iron deficiency anemia due to blood loss; Translations: [Iron deficiency anemia secondary to blood loss (chronic)] Onset: 1 Chronic Deficiency and other anemia (17 sources) Anemia; Translations: [Anemia, unspecified] Onset: 6 [...] 08-23-2015 Chronic Diseases of white blood cells (20 sources) Leukocytosis; Translations: [Elevated white blood cell [...] [Hypo-osmolality and hyponatremia] Onset: 7 04-20-2007 Episodic Fracture of neck of femur (hip) (18 sources) Closed fracture of hip; Translations: [Fracture of unspecified part of neck of left femur, initial encounter for closed fracture] Onset: 5 12-27-2023 Episodic Genitourinary symptoms and ill-defined conditions (20 sources) Retention of urine; Translations: [Retention of urine, unspecified] 01-24-2020 Episodic Heart valve disorders (20 sources) Nonrheumatic aortic (valve) stenosis; Translations: [Aortic valve stenosis] Onset: 5 04-11-2016 Chronic Comment on above: valve area in 2015 w as 1.7cm2 Malaise and fatigue (20 sources) Asthenia; Translations: [Weakness] Onset: 4 07-19-2023 Episodic Menopausal disorders (20 sources) Postmenopausal bleeding; Translations: [Postmenopausal bleeding] Onset: 4 06-21-2020 Chronic Comment on above: TVUS showed 7 mm domo ing. EMB done and if normal, no further intervention unless persistent then would recommend d and c hysteroscopy Nausea and vomiting (20 sources) Vomiting; Translations: [Vomiting, unspecified] 04-02-2022 Episodic Noninfectious gastroenteritis (20 sources) Gastroenteritis; Translations: [Noninfective gastroenteritis and colitis, unspecified] 07-15-2023 Episodic Other aftercare (1 source) Aftercare following joint replacement surgery; Translations: [Aftercare following joint replacement surgery] Onset: 5 Chronic Other and unspecified benign neoplasm (20 sources) Polyp of colon; Translations: [Polyp of colon] 07-10-2020 Episodic Comment on above: removed with a hot s nare in Jul 2018....tubular adenoma Other circulatory disease (13 sources) H/O: heart disorder; Translations: [Personal history of other diseases of the circulatory system] 06-07-2024 Episodic Other circulatory disease (5 sources) H/O: heart failure; Translations: [Personal history of other diseases of the circulatory system] 02-09-2025 Episodic Other congenital anomalies (5 sources) Congenital [...] Chronic Other diseases of veins and lymphatics (13 sources) Difficult venous access; Translations: [Other specified disorders of veins] 01-01-2024 Episodic Other gastrointestinal disorders (5 sources) Malabsorption - iron; Translations: [Intestinal malabsorption, unspecified] Onset: 1 02-06-2021 Chronic Other gastrointestinal disorders (20 sources) H/O: gastrointestinal disease; Translations: [Personal history of other diseases of the digestive system] 01-24-2020 Episodic Other gastrointestinal disorders (13 sources) Acute constipation; Translations: [Constipation, unspecified] 06-07-2024 Episodic Other lower respiratory disease (20 sources) Dyspnea; Translations: [Shortness of breath] Onset: 5 08-23-2015 Episodic Other lower respiratory disease (13 sources) Cough; Translations: [Cough] 01-07-2025 Episodic Other lower respiratory disease (14 sources) History of chronic obstructive airway disease; Translations: [Personal history of other diseases of the respiratory system] 02-04-2025 Episodic Other lower respiratory disease (10 sources) Hypoxia; Translations: [Hypoxemia] 02-09-2025 Episodic Other lower respiratory disease (2 sources) Dyspnea, unspecified; Translations: [Dyspnea, unspecified] Onset: 5 Episodic Other lower respiratory disease (2 sources) Hypoxemia; Translations: [Hypoxemia] Onset: 5 Episodic Other lower respiratory disease [...] Chronic Other nutritional; endocrine; and metabolic disorders (13 sources) Hypomagnesemia; Translations: [Hypomagnesemia] 12-30-2023 Chronic Other nutritional; endocrine; and metabolic disorders (20 sources) Obese class I; Translations: [Class 1 obesity] 01-20-2025 Chronic Other nutritional; endocrine; and metabolic disorders (20 sources) H/O: raised blood lipids; Translations: [Personal history of other endocrine, nutritional and metabolic disease] 01-28-2023 Episodic Other nutritional; endocrine; and metabolic disorders (10 sources) H/O: diabetes mellitus; Translations: [Personal history of other endocrine, nutritional and metabolic disease] 02-09-2025 Episodic Other screening for suspected conditions (not mental disorders or infectious disease) (20 sources) Mammography abnormal; Translations: [Other abnormal and inconclusive findings on diagnostic imaging of breast] Onset: 8 02-23-2008 Episodic Other upper respiratory disease (5 sources) Allergic rhinitis; Translations: [Allergic rhinitis, unspecified] Onset: 5 06-09-2005 Chronic Other upper respiratory disease (13 sources) Acute bronchospasm; Translations: [Acute bronchospasm] 06-07-2024 Episodic Peripheral and visceral atherosclerosis (10 sources) Peripheral vascular disease, unspecified; Translations: [Peripheral vascular disease, unspecified] Onset: 1 05-28-2011 Chronic Phlebitis; thrombophlebitis and thromboembolism (20 sources) History of thromboembolism of vein; Translations: [Personal history of other venous thrombosis and embolism] 01-24-2020 Episodic Pneumonia (except that caused by tuberculosis or sexually transmitted disease) (20 sources) Pneumonia; Translations: [Pneumonia, unspecified organism] Onset: 5 01-20-2025 Episodic Residual codes; unclassified (20 sources) Tobacco use and exposure - finding; Translations: [Tobacco use] 11-22-2018 Episodic Residual codes; unclassified (20 sources) Past history of procedure; Translations: [Other specified health status] 07-19-2023 Episodic Respiratory failure; insufficiency; arrest (adult) (1 source) Chronic respiratory failure with hypercapnia; Translations: [Chronic respiratory failure with hypercapnia] Onset: 5 Chronic Respiratory failure; insufficiency; arrest (adult) (20 sources) Exvyx-ha-upwyqas respiratory failure; Translations: [Acute respiratory failure with [...] Onset: 9 12-27-2008 Chronic Superficial injury; contusion (19 sources) Contusion of hip; Translations: [Contusion of right hip, initial encounter] 08-15-2023 Episodic Thyroid disorders (20 sources) Goiter; Translations: [Nontoxic goiter, unspecified] Onset: 7 Chronic Unclassified (1 source) Acidosis, unspecified; Translations: [Acidosis, unspecified] Onset: 5 Unclassified (1 source) Obesity, class 1; Translations: [Obesity, class 1] Onset: 5 Urinary tract infections (20 sources) Urinary tract infectious disease; Translations: [Urinary tract infection, site not specified] Onset: 4 07-10-2020 Episodic Past or Other Problems Problem Classification Problem Date Documented Da te Episodic/Chronic Acquired foot deformities (5 sources) Talipes planus; Translations: [Flat foot [pes planus] (acquired), unspecified foot] Onset: 11-10-2012 11-10-2012 Episodic Acute posthemorrhagic anemia (5 sources) Acute posthemorrhagic anemia; Translations: [Acute posthemorrhagic anemia] Onset: 01-10-2020 01-10-2020 Episodic Allergic reactions (5 sources) Contact dermatitis; Translations: [Unspecified contact dermatitis, unspecified cause] Onset: 03-09-2007 03-09-2007 Episodic Mycoses (5 sources) Onychomycosis due to [...] Test Name Value Interpretation Reference Range Facility Absolute lymphocyte countOrd ered By: Heydi Amaya on 02-17-2025 Lymphocytes Auto (Unsp spec) [#/Vol] 0.58 10*3/uL Low 0.83-4.51 [facility] Anion gap in Serum or Plasma Ordered By: Heydi Amaya on 02-17-2025 Anion gap [Moles/Vol] 12 mmol/L 5-15 [facility] Automated lymphocyte count a s percentage of total leukocytesOrdered By: Heydi Amaya on 02-17-2025 Lymphocytes/100 WBC Auto (Unsp spec) 7.8 % Low 19-41 [facility] BUN/creatinine ratioOrdered By: Heydi Amaya on 02-17-2025 Urea nitrogen/Creatinine [Mass ratio] 23.0 mg/mg High 10-20 [facility] Basophil percentageOrdered B y: Heydi Amaya on 02-17-2025 Basophils/100 WBC (Bld) 0.1 % 0-1 [facility] Carbon dioxide, total [Moles /volume] in Central venous bloodOrdered By: Heydi Amaya on 02-17-2025 CO2 [Moles/Vol] 23.5 mmol/L 21.0-32.0 [facility] Chloride assayOrdered By: Davy Amaya on 02-17-2025 Chloride [Moles/Vol] 98 mmol/L 98-108 [facility] Electrocardiogram reportOrde red By: Marcelina Soto on 02-17-2025 EKG study [facility] Work Phone: Eosinophil percentageOrdered By: Heydi Amaya on 02-17-2025 Eosinophils/100 WBC (Bld) 0.1 % 0-5 [facility] Erythrocyte distribution wid th ratioOrdered By: Heydi Amaya on 02-17-2025 Erythrocyte distribution width (RBC) [Ratio] 15.6 % High 11.6-14.6 [facility] Erythrocyte distribution wid th standard deviationOrdered By: Heydi Amaya on 02-17-2025 Erythrocyte distribution width (RBC) [Ratio] 51.5 fl High 35.1-43.9 [facility] Glomerular filtration rate ( GFR) estimation/1.73 sq m using serum, plasma, or whole bOrdered By: Heydi Amaya on 02-17-2025 GFR/1.73 sq M.predicted among non-blacks MDRD (S/P/Bld) [Vol rate/Area] 48 mL/min/{1.73_m2} Low >60 [facility] deOrdered By: Heydi Amaya on 02-17-2025 Glucose [Mass/Vol] 241 mg/dL High 74-106 [facility] Hematocrit Auto (Bld) [Volum e fraction]Ordered By: Heydi Amaya on 02-17-2025 Hematocrit (Bld) [Volume fraction] 32.6 % Low 37-47 [facility] Hemoglobin measurementOrdere d By: Heydi Amaya on 02-17-2025 Hemoglobin (Bld) [Mass/Vol] 9.9 g/dL Low 12.0-15.0 [facility] Immature granulocytes/100 WB C Auto (Bld)Ordered By: Heydi Amaya on 02-17-2025 Immature granulocytes/100 WBC (Bld) 0.900 % 0.0-0.9 [facility] MCV (mean corpuscular volume ) determinationOrdered By: Heydi Amaya on 02-17-2025 MCV (RBC) [Entitic vol] 91.3 fL 81-99 [facility] Mean corpuscular hemoglobin (MCH) determinationOrdered By: Heydi Amaya on 02-17-2025 MCH (RBC) [Entitic mass] 27.7 pg 27.0-32.0 [facility] Monocyte percentageOrdered B y: Heydi Amaya on 02-17-2025 Monocytes/100 WBC (Bld) 5.0 % 0-10 [facility] Neutrophil percentageOrdered By: Heydi Amaya on 02-17-2025 Neutrophils/100 WBC (Bld) 86.1 % High 47-70 [facility] Platelet countOrdered By: Davy Amaya on 02-17-2025 Platelets (Bld) [#/Vol] 246 10*3/uL 150-450 [facility] Potassium measurement (mass/ volume)Ordered By: Heydi Amaya on 02-17-2025 Potassium (Unsp spec) [Mass/Vol] 5.3 mmol/L High 3.3-5.1 [facility] RBC Auto (Bld) [#/Vol]Ordere d By: Heydi Amyaa on 02-17-2025 RBC (Bld) [#/Vol] 3.57 10*6/uL Low 4.2-5.4 [facility] Serum creatinine measurement (mass/volume)Ordered By: Heydi Amaya on 02-17-2025 Creatinine [Mass/Vol] 1.15 mg/dL 0.70-1.20 [facility] Serum glucose measurement (m ass/volume)Ordered By: Heydi Amaya on 02-17-2025 Glucose [Mass/Vol] 426 mg/dL High 70-99 [facility] Serum or plasma calcium melanie urement (mass/volume)Ordered By: Heydi Amaya on 02-17-2025 Calcium [Mass/Vol] 10.3 mg/dL 7.6-11.0 [facility] Serum or plasma urea nitroge n measurement (mass/volume)Ordered By: Heydi Amaya on 02-17-2025 Urea nitrogen [Mass/Vol] 27 mg/dL High 4-19 [facility] Sodium levelOrdered By: Rodolfo Amaya on 02-17-2025 Sodium [Moles/Vol] 134 mmol/L 133-145 [facility] White blood cell (WBC) count Ordered By: Heydi Amaya on 02-17-2025 WBC (Bld) [#/Vol] 7.5 10*3/uL 4.4-11.0 [facility] Basic Metabolic Profile (BMP )on 02-16-2025 BUN/CRE 22.0 RATIO High 10-20 [facility] Comment on above: Performed By: #### L 500.2500, L100.0500 ####[facility] [address] [place], [address] Calcium [Mass/Vol] 10.7 mg/dL Normal 7.6-11.0 [facility] Comment on above: Performed By: #### L 500.2500, L100.0500 ####[facility] [address] [place], [address] Chloride [Moles/Vol] 97 mmol/L Low 98-108 [facility] Comment on above: Performed By: #### L 500.2500, L100.0500 ####[facility] [address] [place], [address] CO2 [Moles/Vol] 29.5 mmol/L Normal 21.0-32.0 [facility] Comment on above: Performed By: #### L 500.2500, L100.0500 ####[facility] [address] [place], [address] Creatinine [Mass/Vol] 0.97 mg/dL Normal 0.70-1.20 [facility] Comment on above: Performed By: #### L 500.2500, L100.0500 ####[facility] [address] [place], [address] ECRCL 44.69 ml/min Low 50-250 [facility] Comment on above: Performed By: #### L 500.2500, L100.0500 ####[facility] [address] [place], [address] GAP 12 Normal 5-15 [facility] Comment on above: Performed By: #### L 500.2500, L100.0500 ####[facility] [address] [place], [address] GFR/1.73 sq M.predicted among non-blacks MDRD (S/P/Bld) [Vol rate/Area] 58 mL/min/{1.73_m2} Low >60 [facility] Comment on above: Result Comment: mL/m in/1.73m2 CKD-EPI Creatinine Equation (2020) Performed By: #### L 500.2500, L100.0500 ####[facility] [address] [place], [address] Glucose [Mass/Vol] 98 mg/dL Normal 70-99 [facility] Comment on above: Performed By: #### L 500.2500, L100.0500 ####[facility] [address] [place], [address] Potassium [Moles/Vol] 4.7 mmol/L Normal 3.3-5.1 [facility] Comment on above: Performed By: #### L 500.2500, L100.0500 ####[facility] [address] [place], [address] Sodium [Moles/Vol] 138 mmol/L Normal 133-145 [facility] Comment on above: Performed By: #### L 500.2500, L100.0500 ####[facility] [address] [place], [address] Urea nitrogen [Mass/Vol] 21 mg/dL High 4-19 [facility] Comment on above: Performed By: #### L 500.2500, L100.0500 ####[facility] [address] [place], [address] Bedside Glucoseon 02-16-2025 FINGERSTICK GLU 254 mg/dL High 74-106 [facility] Comment on above: Result Comment: KATARINA GEMENT OF PATIENT CARE PER NURSING PROTOCOL Performed By: #### L 501.080 ####[facility] [address] [place], [address] FINGERSTICK GLU 234 mg/dL High 74-106 [facility] Comment on above: Result Comment: KATARINA GEMENT OF PATIENT CARE PER NURSING PROTOCOL Performed By: #### L 501.080 ####[facility] [address] [place], [address] FINGERSTICK GLU 91 mg/dL Normal 74-106 [facility] Comment on above: Result Comment: KATARINA GEMENT OF PATIENT CARE PER NURSING PROTOCOL Performed By: #### L 501.080 ####[facility] [address] [place], [address] FINGERSTICK GLU 63 mg/dL Low 74-106 [facility] Comment on above: Result Comment: KATARINA GEMENT OF PATIENT CARE PER NURSING PROTOCOL Performed By: #### L 501.080 ####[facility] [address] [place], [address] CBC-Complete Blood Cnt No Di ffon 02-16-2025 Erythrocyte distribution width (RBC) [Ratio] 16.1 % High 11.6-14.6 [facility] Comment on above: Performed By: #### L 500.2500, L100.0500 ####[facility] [address] [place], [address] Hematocrit (Bld) [Volume fraction] 36.2 % Low 37-47 [facility] Comment on above: Performed By: #### L 500.2500, L100.0500 ####[facility] [address] [place], [address] Hemoglobin (Bld) [Mass/Vol] 11.0 g/dL Low 12.0-15.0 [facility] Comment on above: Performed By: #### L 500.2500, L100.0500 ####[facility] [address] [place], [address] MCH (RBC) [Entitic mass] 27.4 pg Normal 27.0-32.0 [facility] Comment on above: Performed By: #### L 500.2500, L100.0500 ####[facility] [address] [place], [address] MCHC (RBC) [Mass/Vol] 30.4 g/dL Low 32-36 [facility] Comment on above: Performed By: #### L 500.2500, L100.0500 ####[facility] [address] [place], [address] MCV (RBC) [Entitic vol] 90.0 fL Normal 81-99 [facility] Comment on above: Performed By: #### L 500.2500, L100.0500 ####[facility] [address] [place], [address] Platelet mean volume (Bld) [Entitic vol] 11.0 fL Normal 6.2-12.0 [facility] Comment on above: Performed By: #### L 500.2500, L100.0500 ####[facility] [address] [place], [address] Platelets (Bld) [#/Vol] 250 10*3/uL Normal 150-450 [facility] Comment on above: Performed By: #### L 500.2500, L100.0500 ####[facility] [address] [place], [address] RBC (Bld) [#/Vol] 4.02 10*6/uL Low 4.2-5.4 [facility] Comment on above: Performed By: #### L 500.2500, L100.0500 ####[facility] [address] [place], [address] RDW SD 52.3 fl High 35.1-43.9 [facility] Comment on above: Performed By: #### L 500.2500, L100.0500 ####[facility] [address] [place], [address] WBC (Bld) [#/Vol] 9.2 10*3/uL Normal 4.4-11.0 [facility] Comment on above: Performed By: #### L 500.2500, L100.0500 ####[facility] [address] [place], [address] Gram Stainon 02-16-2025 GS Acceptable Specimen? Yes (<25 Epithelial cells per/lpf) Gram Stain Rare Gram positive cocci Rare Gram positive rods No Epithelial cells Rare White Blood Cells Normal [facility] Comment on above: Performed By: #### M 100.2000 ####[facility] [address] [place], [address] Gram stainOrdered By: Ankit Jean-Baptiste on 02-16-2025 Microscopic observation Gram stain Nom (Unsp spec) [facility] Absolute lymphocyte countOrd ered By: Robert Allison on 02-15-2025 Lymphocytes Auto (Unsp spec) [#/Vol] 0.98 10*3/uL 0.83-4.51 [facility] Anion gap in Serum or Plasma Ordered By: Remus Keegan on 02-15-2025 Anion gap [Moles/Vol] 9 mmol/L 5-15 [facility] Automated lymphocyte count a s percentage of total leukocytesOrdered By: Remus Ungmasood on 02-15-2025 Lymphocytes/100 WBC Auto (Unsp spec) 10.9 % Low 19-41 [facility] BUN/creatinine ratioOrdered By: Remus Ungur on 02-15-2025 Urea nitrogen/Creatinine [Mass ratio] 23.1 mg/mg High 10-20 [facility] Basic Metabolic Profile (BMP )on 02-15-2025 BUN/CRE 23.1 RATIO High - [facility] Comment on above: Performed By: #### L 503.7505, L500.2500, L501.4021, L100.0100 ####[facility] [address] [place], [address] Calcium [Mass/Vol] 10.7 mg/dL Normal 7.6-11.0 [facility] Comment on above: Performed By: #### L 503.7505, L500.2500, L501.4021, L100.0100 ####[facility] [address] [place], [address] Chloride [Moles/Vol] 98 mmol/L Normal 98-108 [facility] Comment on above: Performed By: #### L 503.7505, L500.2500, L501.4021, L100.0100 ####[facility] [address] [place], [address] CO2 [Moles/Vol] 30.9 mmol/L Normal 21.0-32.0 [facility] Comment on above: Performed By: #### L 503.7505, L500.2500, L501.4021, L100.0100 ####[facility] [address] [place], [address] Creatinine [Mass/Vol] 1.04 mg/dL Normal 0.70-1.20 [facility] Comment on above: Performed By: #### L 503.7505, L500.2500, L501.4021, L100.0100 ####[facility] [address] [place], [address] ECRCL 41.98 ml/min Low 50-250 [facility] Comment on above: Performed By: #### L 503.7505, L500.2500, L501.4021, L100.0100 ####[facility] [address] [place], [address] GAP 9 Normal 5-15 [facility] Comment on above: Performed By: #### L 503.7505, L500.2500, L501.4021, L100.0100 ####[facility] [address] [place], [address] GFR/1.73 sq M.predicted among non-blacks MDRD (S/P/Bld) [Vol rate/Area] 54 mL/min/{1.73_m2} Low >60 [facility] Comment on above: Result Comment: mL/m in/1.73m2 CKD-EPI Creatinine Equation (2020) Performed By: #### L 503.7505, L500.2500, L501.4021, L100.0100 ####[facility] [address] [place], [address] Glucose [Mass/Vol] 97 mg/dL Normal 70-99 [facility] Comment on above: Performed By: #### L 503.7505, L500.2500, L501.4021, L100.0100 ####[facility] [address] [place], [address] Potassium [Moles/Vol] 4.3 mmol/L Normal 3.3-5.1 [facility] Comment on above: Performed By: #### L 503.7505, L500.2500, L501.4021, L100.0100 ####[facility] [address] [place], [address] Sodium [Moles/Vol] 138 mmol/L Normal 133-145 [facility] Comment on above: Performed By: #### L 503.7505, L500.2500, L501.4021, L100.0100 ####[facility] [address] [place], [address] Urea nitrogen [Mass/Vol] 24 mg/dL High 4-19 [facility] Comment on above: Performed By: #### L 503.7505, L500.2500, L501.4021, L100.0100 ####[facility] [address] [place], [address] Basophil percentageOrdered B y: Remus Ungur on 02-15-2025 Basophils/100 WBC (Bld) 0.1 % 0-1 [facility] Bedside Glucoseon 02-15-2025 FINGERSTICK GLU 152 mg/dL High 74-106 [facility] Comment on above: Result Comment: KATARINA GEMENT OF PATIENT CARE PER NURSING PROTOCOL Performed By: #### L 501.080 ####[facility] [address] [place], [address] FINGERSTICK GLU 80 mg/dL Normal 74-106 [facility] Comment on above: Result Comment: KATARINA GEMENT OF PATIENT CARE PER NURSING PROTOCOL Performed By: #### L 501.080 ####[facility] [address] [place], [address] CBC W/Diff, Automatedon 06- Absolute Lymph 0.98 X10 3/uL Normal 0.83-4.51 [facility] Comment on above: Performed By: #### L 503.7505, L500.2500, L501.4021, L100.0100 ####[facility] [address] [place], [address] Absolute Neut 7.5 X10 3/uL Normal 2.0-7.7 [facility] Comment on above: Performed By: #### L 503.7505, L500.2500, L501.4021, L100.0100 ####[facility] [address] [place], [address] Basophils/100 WBC (Bld) 0.1 % Normal 0-1 [facility] Comment on above: Performed By: #### L 503.7505, L500.2500, L501.4021, L100.0100 ####[facility] [address] [place], [address] Eosinophils/100 WBC (Bld) 0.7 % Normal 0-5 [facility] Comment on above: Performed By: #### L 503.7505, L500.2500, L501.4021, L100.0100 ####[facility] [address] [place], [address] Erythrocyte distribution width (RBC) [Ratio] 16.2 % High 11.6-14.6 [facility] Comment on above: Performed By: #### L 503.7505, L500.2500, L501.4021, L100.0100 ####[facility] [address] [place], [address] Hematocrit (Bld) [Volume fraction] 33.5 % Low 37-47 [facility] Comment on above: Performed By: #### L 503.7505, L500.2500, L501.4021, L100.0100 ####[facility] [address] [place], [address] Hemoglobin (Bld) [Mass/Vol] 10.1 g/dL Low 12.0-15.0 [facility] Comment on above: Performed By: #### L 503.7505, L500.2500, L501.4021, L100.0100 ####[facility] [address] [place], [address] IG% 1.000 High 0.0-0.9 [facility] Comment on above: Result Comment: IG% - Immature Granulocytes (promyelocytes, myelocytes andmetamyelocytes) > 1% indicates that a LEFT SHIFT is Present. Performed By: #### L 503.7505, L500.2500, L501.4021, L100.0100 ####[facility] [address] [place], [address] Lymphocytes/100 WBC (Bld) 10.9 % Low 19-41 [facility] Comment on above: Performed By: #### L 503.7505, L500.2500, L501.4021, L100.0100 ####[facility] [address] [place], [address] MCH (RBC) [Entitic mass] 27.0 pg Normal 27.0-32.0 [facility] Comment on above: Performed By: #### L 503.7505, L500.2500, L501.4021, L100.0100 ####[facility] [address] [place], [address] MCHC (RBC) [Mass/Vol] 30.1 g/dL Low 32-36 [facility] Comment on above: Performed By: #### L 503.7505, L500.2500, L501.4021, L100.0100 ####[facility] [address] [place], [address] MCV (RBC) [Entitic vol] 89.6 fL Normal 81-99 [facility] Comment on above: Performed By: #### L 503.7505, L500.2500, L501.4021, L100.0100 ####[facility] [address] [place], [address] Monocytes/100 WBC (Bld) 4.8 % Normal 0-10 [facility] Comment on above: Performed By: #### L 503.7505, L500.2500, L501.4021, L100.0100 ####[facility] [address] [place], [address] Neutrophils/100 WBC (Bld) 82.5 % High 47-70 [facility] Comment on above: Performed By: #### L 503.7505, L500.2500, L501.4021, L100.0100 ####[facility] [address] [place], [address] Nucleated RBC (Bld) [#/Vol] 0 10*3/uL Normal 0-5 [facility] Comment on above: Performed By: #### L 503.7505, L500.2500, L501.4021, L100.0100 ####[facility] [address] [place], [address] Platelet mean volume (Bld) [Entitic vol] 10.4 fL Normal 6.2-12.0 [facility] Comment on above: Performed By: #### L 503.7505, L500.2500, L501.4021, L100.0100 ####[facility] [address] [place], [address] Platelets (Bld) [#/Vol] 243 10*3/uL Normal 150-450 [facility] Comment on above: Performed By: #### L 503.7505, L500.2500, L501.4021, L100.0100 ####[facility] [address] [place], [address] RBC (Bld) [#/Vol] 3.74 10*6/uL Low 4.2-5.4 [facility] Comment on above: Performed By: #### L 503.7505, L500.2500, L501.4021, L100.0100 ####[facility] [address] [place], [address] RDW SD 52.9 fl High 35.1-43.9 [facility] Comment on above: Performed By: #### L 503.7505, L500.2500, L501.4021, L100.0100 ####[facility] [address] [place], [address] WBC (Bld) [#/Vol] 9.0 10*3/uL Normal 4.4-11.0 [facility] Comment on above: Performed By: #### L 503.7505, L500.2500, L501.4021, L100.0100 ####[facility] [address] [place], [address] Carbon dioxide, total [Moles /volume] in Central venous bloodOrdered By: Robert Allison on 02-15-2025 CO2 [Moles/Vol] 30.9 mmol/L 21.0-32.0 [facility] Chest 1 View (Portable)on Chest 1 View (Portable) Normal [facility] Chloride assayOrdered By: Ester Allison on 02-15-2025 Chloride [Moles/Vol] 98 mmol/L 98-108 [facility] Emergency Department Summary on 02-15-2025 Emergency Department Summary Normal [facility] Eosinophil percentageOrdered By: Robert Allison on 02-15-2025 Eosinophils/100 WBC (Bld) 0.7 % 0-5 [facility] Erythrocyte distribution wid th ratioOrdered By: Robert Allison on 02-15-2025 Erythrocyte distribution width (RBC) [Ratio] 16.2 % High 11.6-14.6 [facility] Erythrocyte distribution wid th standard deviationOrdered By: Robert Allison on 02-15-2025 Erythrocyte distribution width (RBC) [Ratio] 52.9 fl High 35.1-43.9 [facility] Glomerular filtration rate ( GFR) estimation/1.73 sq m using serum, plasma, or whole bOrdered By: Robert Allison on 06-18-2025 GFR/1.73 sq M.predicted among non-blacks MDRD (S/P/Bld) [Vol rate/Area] 54 mL/min/{1.73_m2} Low >60 [facility] H AND P Exam - Hospitaliston 02-15-2025 H&P Exam - Hospitalist Normal [facility] Hematocrit Auto (Bld) [Volum e fraction][facility] By: [facility] [place] 02-15-2025 Hematocrit (Bld) [Volume fraction] 33.5 % Low 37-47 [facility] Hemoglobin measurementOrdere d By: [facility] [place] on 02-15-2025 Hemoglobin (Bld) [Mass/Vol] 10.1 g/dL Low 12.0-15.0 [facility] Immature granulocytes/100 WB C Auto (Bld)Ordered By: [facility] [place] on 02-15-2025 Immature granulocytes/100 WBC (Bld) 1.000 % High 0.0-0.9 [facility] L499.0042on 02-15-2025 Trop T High Sen 113 ng/L Invalid Interpretation Code <=14 [facility] Comment on above: Result Comment: Crit ical Result(s) Called at: 02/15/2025-13:14 by: Pat to Jena Smiley.??Results read back by same. Performed By: #### L 499.0042 ####[facility] [address] [place], [place], [address] L499.0043on 02-15-2025 Trop T High Sen 114 ng/L Invalid Interpretation Code <=14 [facility] Comment on above: Result Comment: Hemo lysis present, Results??could be affected.??CRIT CALLED BY ARCHIE MOE AT 1607Critical Result(s) Called at: by:??Results read back bysame. Performed By: #### L 499.0043 ####[facility] [address] [place], [place], [address] L501.4021on 02-15-2025 Trop T High Sen 117 ng/L Invalid Interpretation Code <=14 [facility] Comment on above: Result Comment: Crit ical Result(s) Called at:02/15/2025-11:47 by: Pat to Quin Lopez.??Results read back by same. Performed By: #### L 503.7505, L500.2500, L501.4021, L100.0100 ####[facility] [address] [place], [address] L503.7505on 02-15-2025 Natriuretic peptide B (Bld) [Mass/Vol] 4408 pg/mL High <=1800 [facility] Comment on above: Result Comment: Hear t Failure Unlikely: < 300 pg/mLHeart Failure Likely< 50 Years: > 450 pg/mL50-75 Years: > 900 pg/mL>75 Years: > 1800 pg/mL Performed By: #### L 503.7505, L500.2500, L501.4021, L100.0100 ####[facility] [address] [place], [address] L509.7001on 02-15-2025 Procalcitonin 0.27 ng/mL High <=0.10 [facility] Comment on above: Result Comment: Inte rpretation:<0.10-0.25 ng/mL: Antibiotic therapy discouraged. Bacterialinfection unlikely.0.25-0.50 ng/mL: Antibiotic therapy encouraged. Bacterialinfection possible.>0.50 ng/mL: Antibiotic therapy strongly encouraged.Suggestive of presence of bacterial infection.PCT should always be interpreted in the clinical context ofthe patient. Therefore, clinicians should use the PCTresults in conjunction with other laboratory findings andclinical signs of the patient. Performed By: #### L 509.7001 ####[facility] [address] [place], [address] MCV (mean corpuscular volume ) determinationOrdered By: Remus Ungur on 02-15-2025 MCV (RBC) [Entitic vol] 89.6 fL 81-99 [facility] Mean corpuscular hemoglobin (MCH) determinationOrdered By: Remus Ungur on 02-15-2025 MCH (RBC) [Entitic mass] 27.0 pg 27.0-32.0 [facility] Monocyte percentageOrdered B y: Robert Espinomasood on 02-15-2025 Monocytes/100 WBC (Bld) 4.8 % 0-10 [facility] Natriuretic peptide.B prohor hayley N-Terminal [Mass/volume] in Serum or PlasmaOrdered By: Robert Allison on 02-15-2025 Natriuretic peptide.B prohormone N-Terminal [Mass/Vol] 4408 pg/mL High <1800 [facility] Neutrophil percentageOrdered By: Robert Allison on 02-15-2025 Neutrophils/100 WBC (Bld) 82.5 % High 47-70 [facility] Platelet countOrdered By: Ester Allison on 02-15-2025 Platelets (Bld) [#/Vol] 243 10*3/uL 150-450 [facility] Potassium measurement (mass/ volume)Ordered By: Robert Allison on 02-15-2025 Potassium (Unsp spec) [Mass/Vol] 4.3 mmol/L 3.3-5.1 [facility] Procalcitonin [Mass/volume] in Serum or Plasma by ImmunoassayOrdered By: Nestor Bartlett on 02-15-2025 Procalcitonin IA [Mass/Vol] 0.27 ng/mL High <0.11 [facility] RBC Auto (Bld) [#/Vol]Ordere d By: Harriet Keegan on 02-15-2025 RBC (Bld) [#/Vol] 3.74 10*6/uL Low 4.2-5.4 [facility] Serum creatinine measurement (mass/volume)Ordered By: Robert Allison on 02-15-2025 Creatinine [Mass/Vol] 1.04 mg/dL 0.70-1.20 [facility] Serum glucose measurement (m ass/volume)Ordered By: Robert Allison on 02-15-2025 Glucose [Mass/Vol] 97 mg/dL 70-99 [facility] Serum or plasma calcium melanie urement (mass/volume)Ordered By: Robert Allison on 02-15-2025 Calcium [Mass/Vol] 10.7 mg/dL 7.6-11.0 [facility] Serum or plasma urea nitroge n measurement (mass/volume)Ordered By: Robert Allison on 02-15-2025 Urea nitrogen [Mass/Vol] 24 mg/dL High 4-19 [facility] Sodium levelOrdered By: Lorena Allison on 02-15-2025 Sodium [Moles/Vol] 138 mmol/L 133-145 [facility] Troponin T.cardiac [Mass/vol ume] in Serum or Plasma by High sensitivity methodOrdered By: Robert Allison on 02-15-2025 Troponin T.cardiac High sensitivity method [Mass/Vol] 114 ng/L High <14 [facility] Troponin T.cardiac High sensitivity method [Mass/Vol] 113 ng/L High <14 [facility] Troponin T.cardiac High sensitivity method [Mass/Vol] 117 ng/L High <14 [facility] White blood cell (WBC) count Ordered By: Robert Allison on 02-15-2025 WBC (Bld) [#/Vol] 9.0 10*3/uL 4.4-11.0 [facility] Bedside Glucoseon 02-13-2025 FINGERSTICK GLU 337 mg/dL High 74-106 [facility] Comment on above: Result Comment: KATARINA GEMENT OF PATIENT CARE PER NURSING PROTOCOL Performed By: #### L 501.080 ####[facility] [address] [facility] [address] FINGERSTICK GLU 302 mg/dL High 74-106 [facility] Comment on above: Result Comment: KATARINA GEMENT OF PATIENT CARE PER NURSING PROTOCOL Performed By: #### L 501.080 ####[facility] [address] [facility] [address] Discharge Instructionon 01-29 Discharge Instruction Normal [facility] Glucose measurement at bedsi deOrdered By: Lucio Borden on 02-13-2025 Glucose [Mass/Vol] 337 mg/dL High 74-106 [facility] Bedside Glucoseon 02-12-2025 FINGERSTICK GLU 236 mg/dL High 74-106 [facility] Comment on above: Result Comment: KATARINA GEMENT OF PATIENT CARE PER NURSING PROTOCOL Performed By: #### L 501.080 ####[facility] [address] [place], [address] FINGERSTICK GLU 112 mg/dL High [address] [place] [address] Comment on above: Result Comment: KATARINA GEMENT OF PATIENT CARE PER NURSING PROTOCOL Performed By: #### L 501.080 ####[facility] [address] [place], [address] FINGERSTICK GLU 471 mg/dL Invalid Interpretation Code [address] [place] [address] Comment on above: Result Comment: Dr Carina javier FollowedMANAGEMENT OF PATIENT CARE PER NURSING PROTOCOL Performed By: #### L 501.080 ####[facility] [address] [place], [address] FINGERSTICK GLU 492 mg/dL Invalid Interpretation Code [address] [place] [address] Comment on above: Result Comment: Repe at TestMANAGEMENT OF PATIENT CARE PER NURSING PROTOCOL Performed By: #### L 501.080 ####[facility] [address] [place], [address] FINGERSTICK GLU 243 mg/dL High [address] [place] [address] Comment on above: Result Comment: KATARINA GEMENT OF PATIENT CARE PER NURSING PROTOCOL Performed By: #### L 501.080 ####[facility] [address] [place], [address] FINGERSTICK GLU 312 mg/dL High [address] [place] [address] Comment on above: Result Comment: KATARINA GEMENT OF PATIENT CARE PER NURSING PROTOCOL Performed By: #### L 501.080 ####[facility] [address] [place], [address] FINGERSTICK GLU 246 mg/dL High [address] [place] [address] Comment on above: Result Comment: KATARINA GEMENT OF PATIENT CARE PER NURSING PROTOCOL Performed By: #### L 501.080 ####[facility] [address] [place], [address] Bedside Glucoseon 02-11-2025 FINGERSTICK GLU 276 mg/dL High [address] [place] [address] Comment on above: Result Comment: KATARINA GEMENT OF PATIENT CARE PER NURSING PROTOCOL Performed By: #### L 501.080 ####[facility] [address] [place], [address] FINGERSTICK GLU 124 mg/dL High [address] [place] [address] Comment on above: Result Comment: KATARINA GEMENT OF PATIENT CARE PER NURSING PROTOCOL Performed By: #### L 501.080 ####[facility] [address] [place], [address] FINGERSTICK GLU 257 mg/dL High [address] [place] [address] Comment on above: Result Comment: KATARINA GEMENT OF PATIENT CARE PER NURSING PROTOCOL Performed By: #### L 501.080 ####[facility] [address] [place], [address] FINGERSTICK GLU 305 mg/dL High [address] [place] [address] Comment on above: Result Comment: KATARINA GEMENT OF PATIENT CARE PER NURSING PROTOCOL Performed By: #### L 501.080 ####[facility] [address] [place], [address] FINGERSTICK GLU 242 mg/dL High [address] [place] [address] Comment on above: Result Comment: KATARINA GEMENT OF PATIENT CARE PER NURSING PROTOCOL Performed By: #### L 501.080 ####[facility] [address] [place], [address] FINGERSTICK GLU 206 mg/dL High [address] [place] [address] Comment on above: Result Comment: KATARINA GEMENT OF PATIENT CARE PER NURSING PROTOCOL Performed By: #### L 501.080 ####[facility] [address] [place], [address] Anion gap in Serum or Plasma Ordered By: Lucio Borden on 02-10-2025 Anion gap [Moles/Vol] 14 mmol/L 5-15 [facility] BUN/creatinine ratioOrdered By: Lucio Borden on 02-10-2025 Urea nitrogen/Creatinine [Mass ratio] 20.8 mg/mg High - [facility] Basic Metabolic Profile (BMP )on 02-10-2025 BUN/CRE 20.8 RATIO High - [facility] Comment on above: Performed By: #### L 500.2500 ####[facility] [address] [place], [address] Calcium [Mass/Vol] 10.0 mg/dL Normal 7.6-11.0 [facility] Comment on above: Performed By: #### L 500.2500 ####[facility] [address] [place], [address] Chloride [Moles/Vol] 98 mmol/L Normal 98-108 [facility] Comment on above: Performed By: #### L 500.2500 ####[facility] [address] [place], [address] CO2 [Moles/Vol] 26.8 mmol/L Normal 21.0-32.0 [facility] Comment on above: Performed By: #### L 500.2500 ####[facility] [address] [place], [address] Creatinine [Mass/Vol] 1.10 mg/dL Normal 0.70-1.20 [facility] Comment on above: Performed By: #### L 500.2500 ####[facility] [address] [place], [address] ECRCL 39.32 ml/min Low 50-250 [facility] Comment on above: Performed By: #### L 500.2500 ####[facility] [address] [place], [address] GAP 14 Normal -15 [facility] Comment on above: Performed By: #### L 500.2500 ####[facility] [address] [place], [address] GFR/1.73 sq M.predicted among non-blacks MDRD (S/P/Bld) [Vol rate/Area] 50 mL/min/{1.73_m2} Low >60 [facility] Comment on above: Result Comment: mL/m in/1.73m2 CKD-EPI Creatinine Equation (2020) Performed By: #### L 500.2500 ####[facility] [address] [place], [address] Glucose [Mass/Vol] 361 mg/dL High 70-99 [facility] Comment on above: Performed By: #### L 500.2500 ####[facility] [address] [place], [address] Potassium [Moles/Vol] 4.9 mmol/L Normal 3.3-5.1 [facility] Comment on above: Performed By: #### L 500.2500 ####[facility] [address] [place], [address] Sodium [Moles/Vol] 139 mmol/L Normal 133-145 [facility] Comment on above: Performed By: #### L 500.2500 ####[facility] [address] [place], [address] Urea nitrogen [Mass/Vol] 23 mg/dL High 4-19 [facility] Comment on above: Performed By: #### L 500.2500 ####[facility] [address] [place], [address] Bedside Glucoseon 02-10-2025 FINGERSTICK GLU 167 mg/dL High 74-106 [facility] Comment on above: Result Comment: KATARINA GARY OF PATIENT CARE PER NURSING PROTOCOL Performed By: #### L 501.080 ####[facility] [address] [place], [address] FINGERSTICK GLU 78 mg/dL Normal 74-106 [facility] Comment on above: Result Comment: KATARINA GEMENT OF PATIENT CARE PER NURSING PROTOCOL Performed By: #### L 501.080 ####[facility] [address] [place], [address] FINGERSTICK GLU 64 mg/dL Low 74-106 [facility] Comment on above: Result Comment: KATARINA GEMENT OF PATIENT CARE PER NURSING PROTOCOL Performed By: #### L 501.080 ####[facility] [address] [place], [address] FINGERSTICK GLU 222 mg/dL High 74-106 [facility] Comment on above: Result Comment: KATARINA GEMENT OF PATIENT CARE PER NURSING PROTOCOL Performed By: #### L 501.080 ####[facility] [address] [place], [address] Carbon dioxide, total [Moles /volume] in Central venous bloodOrdered By: Lucio Borden on 02-10-2025 CO2 [Moles/Vol] 26.8 mmol/L 21.0-32.0 [facility] Chloride assayOrdered By: Chen Borden on 02-10-2025 Chloride [Moles/Vol] 98 mmol/L 98-108 [facility] Glomerular filtration rate ( GFR) estimation/1.73 sq m using serum, plasma, or whole bOrdered By: Lucio Borden on 02-10-2025 GFR/1.73 sq M.predicted among non-blacks MDRD (S/P/Bld) [Vol rate/Area] 50 mL/min/{1.73_m2} Low >60 [facility] Potassium measurement (mass/ volume)Ordered By: Lucio Borden on 02-10-2025 Potassium (Unsp spec) [Mass/Vol] 4.9 mmol/L 3.3-5.1 [facility] RESPIRATORY PANEL MOLECULARo n 02-10-2025 RP PANEL Normal [facility] Comment on above: Performed By: #### M 100.638 ####[facility] [address] [place], [address] Serum creatinine measurement (mass/volume)Ordered By: Lucio Borden on 02-10-2025 Creatinine [Mass/Vol] 1.10 mg/dL 0.70-1.20 [facility] Serum glucose measurement (m ass/volume)Ordered By: Lucio Borden on 02-10-2025 Glucose [Mass/Vol] 361 mg/dL High 70-99 [facility] Serum or plasma calcium melanie urement (mass/volume)Ordered By: Lucio Borden on 02-10-2025 Calcium [Mass/Vol] 10.0 mg/dL 7.6-11.0 [facility] Serum or plasma urea nitroge n measurement (mass/volume)Ordered By: Lucio Borden on 02-10-2025 Urea nitrogen [Mass/Vol] 23 mg/dL High 4-19 [facility] Sodium levelOrdered By: Lucio Borden on 02-10-2025 Sodium [Moles/Vol] 139 mmol/L 133-145 [facility] Absolute lymphocyte countOrd ered By: Jeremiah Corrales on 02-09-2025 Lymphocytes Auto (Unsp spec) [#/Vol] 0.69 10*3/uL Low 0.83-4.51 [facility] Anion gap in Serum or Plasma Ordered By: Jeremiah Corrales on 02-09-2025 Anion gap [Moles/Vol] 12 mmol/L 5-15 [facility] Automated lymphocyte count a s percentage of total leukocytesOrdered By: Jeremiah Corrales on 02-09-2025 Lymphocytes/100 WBC Auto (Unsp spec) 7.3 % Low 19-41 [facility] BUN/creatinine ratioOrdered By: Jeremiah Corrales on 02-09-2025 Urea nitrogen/Creatinine [Mass ratio] 20.2 mg/mg High 10-20 [facility] Basic Metabolic Profile (BMP )on 02-09-2025 BUN/CRE 20.2 RATIO High 06-19 [facility] Comment on above: Performed By: #### L 500.2500, L100.0100, L501.4021 ####[facility] [address] [place], [place], [id number] Calcium [Mass/Vol] 10.2 mg/dL Normal 7.6-11.0 [facility] Comment on above: Performed By: #### L 500.2500, L100.0100, L501.4021 ####[facility] [address] [place], [address] Chloride [Moles/Vol] 98 mmol/L Normal 98-108 [facility] Comment on above: Performed By: #### L 500.2500, L100.0100, L501.4021 ####[facility] [address] [place], [address] CO2 [Moles/Vol] 29.9 mmol/L Normal 21.0-32.0 [facility] Comment on above: Performed By: #### L 500.2500, L100.0100, L501.4021 ####[facility] [address] [place], [address] Creatinine [Mass/Vol] 1.16 mg/dL Normal 0.70-1.20 [facility] Comment on above: Performed By: #### L 500.2500, L100.0100, L501.4021 ####[facility] [address] [place], [address] ECRCL 37.42 ml/min Low 50-250 [facility] Comment on above: Performed By: #### L 500.2500, L100.0100, L501.4021 ####[facility] [address] [place], [address] GAP 12 Normal 5-15 [facility] Comment on above: Performed By: #### L 500.2500, L100.0100, L501.4021 ####[facility] [address] [place], [address] GFR/1.73 sq M.predicted among non-blacks MDRD (S/P/Bld) [Vol rate/Area] 47 mL/min/{1.73_m2} Low >60 [facility] Comment on above: Result Comment: mL/m in/1.73m2 CKD-EPI Creatinine Equation (2020) Performed By: #### L 500.2500, L100.0100, L501.4021 ####[facility] [address] [place], [address] Glucose [Mass/Vol] 173 mg/dL High 70-99 [facility] Comment on above: Performed By: #### L 500.2500, L100.0100, L501.4021 ####[facility] [address] [place], [address] Potassium [Moles/Vol] 4.3 mmol/L Normal 3.3-5.1 [facility] Comment on above: Performed By: #### L 500.2500, L100.0100, L501.4021 ####[facility] [address] [place], [address] Sodium [Moles/Vol] 140 mmol/L Normal 133-145 [facility] Comment on above: Performed By: #### L 500.2500, L100.0100, L501.4021 ####[facility] [address] [place], [address] Urea nitrogen [Mass/Vol] 23 mg/dL High 4-19 [facility] Comment on above: Performed By: #### L 500.2500, L100.0100, L501.4021 ####[facility] [address] [place], [address] Basophil percentageOrdered B y: Jeremiah Corrales on 02-09-2025 Basophils/100 WBC (Bld) 0.4 % 0-1 [facility] Bedside Glucoseon 02-09-2025 FINGERSTICK GLU 401 mg/dL High 74-106 [facility] Comment on above: Result Comment: KATARINA GARY OF PATIENT CARE PER NURSING PROTOCOL Performed By: #### L 501.080 ####[facility] [address] [place], [address] FINGERSTICK GLU 248 mg/dL High 74-106 [facility] Comment on above: Result Comment: KATARINA GARY OF PATIENT CARE PER NURSING PROTOCOL Performed By: #### L 501.080 ####[facility] [address] [place], [address] CBC W/Diff, Automatedon 01-29 PLT EST ADEQUATE Normal ADEQ [facility] [facility] Comment on above: Performed By: #### L 500.2500, L100.0100, L501.4021 ####[facility] [address] [facility] [place], [address] Carbon dioxide, total [Moles /volume] in Central venous bloodOrdered By: Jeremiah Corrales on 02-09-2025 CO2 [Moles/Vol] 29.9 mmol/L 21.0-32.0 [facility] Chest PA and Lateralon 02-09 Chest PA and Lateral Normal [facility] Chloride assayOrdered By: Enio Corrales on 02-09-2025 Chloride [Moles/Vol] 98 mmol/L 98-108 [facility] Emergency Department Summary on 02-09-2025 Emergency Department Summary Normal [facility] Eosinophil percentageOrdered By: Jeremiah Corrales on 02-09-2025 Eosinophils/100 WBC (Bld) 0.1 % 0-5 [facility] Erythrocyte distribution wid th ratioOrdered By: Jeremiah Corrales on 02-09-2025 Erythrocyte distribution width (RBC) [Ratio] 15.8 % High 11.6-14.6 [facility] Erythrocyte distribution wid th standard deviationOrdered By: Jeremiah Corrales on 02-09-2025 Erythrocyte distribution width (RBC) [Ratio] 51.3 fl High 35.1-43.9 [facility] Glomerular filtration rate ( GFR) estimation/1.73 sq m using serum, plasma, or whole bOrdered By: Jeremiah Corrales on 02-09-2025 GFR/1.73 sq M.predicted among non-blacks MDRD (S/P/Bld) [Vol rate/Area] 47 mL/min/{1.73_m2} Low >60 [facility] H AND P Exam - Hospitaliston 02-09-2025 H&P Exam - Hospitalist Normal [facility] Hematocrit Auto (Bld) [Volum e fraction]Ordered By: Jeremiah Corrales on 02-09-2025 Hematocrit (Bld) [Volume fraction] 37.9 % 37-47 [facility] Hemoglobin measurementOrdere d By: Jeremiah Corrales on 02-09-2025 Hemoglobin (Bld) [Mass/Vol] 11.5 g/dL Low 12.0-15.0 [facility] Immature granulocytes/100 WB C Auto (Bld)Ordered By: Jeremiah Corrales on 02-09-2025 Immature granulocytes/100 WBC (Bld) 0.800 % 0.0-0.9 [facility] L499.0042on 02-09-2025 Trop T High Sen 119 ng/L Invalid Interpretation Code <=14 [facility] Comment on above: Result Comment: Crit ical Result(s) Called VANE GRAVES at: 1520 by:VIET??Results read back by same. Performed By: #### L 499.0042 ####[facility] [address] [place], [address] L501.4021on 02-09-2025 Trop T High Sen 122 ng/L Invalid Interpretation Code <=14 [facility] Comment on above: Result Comment: Crit ical Result(s) Called at 1330: by: SHARONA ROWELL. ??Results read back by same. Performed By: #### L 500.2500, L100.0100, L501.4021 ####[facility] [address] [place], [address] L503.7505on 02-09-2025 Natriuretic peptide B (Bld) [Mass/Vol] 9616 pg/mL High <=1800 [facility] Comment on above: Result Comment: Hear t Failure Unlikely: < 300 pg/mLHeart Failure Likely< 50 Years: > 450 pg/mL50-75 Years: > 900 pg/mL>75 Years: > 1800 pg/mL Performed By: #### L 503.7505 ####[facility] [address] [place], [address] MCV (mean corpuscular volume ) determinationOrdered By: Jeremiah Corrales on 02-09-2025 MCV (RBC) [Entitic vol] 89.8 fL 81-99 [facility] Mean corpuscular hemoglobin (MCH) determinationOrdered By: Jeremiah Corrales on 02-09-2025 MCH (RBC) [Entitic mass] 27.3 pg 27.0-32.0 [facility] Monocyte percentageOrdered B y: Jeremiah Corrales on 02-09-2025 Monocytes/100 WBC (Bld) 4.5 % 0-10 [facility] Natriuretic peptide.B prohor hayley N-Terminal [Mass/volume] in Serum or PlasmaOrdered By: Jeremiah Corrales on 02-09-2025 Natriuretic peptide.B prohormone N-Terminal [Mass/Vol] 9616 pg/mL High <1800 [facility] Neutrophil percentageOrdered By: Jeremiah Corrales on 02-09-2025 Neutrophils/100 WBC (Bld) 86.9 % High 47-70 [facility] Platelet countOrdered By: Enio Corrales on 02-09-2025 Platelet count TNP [facility] Platelet estimateOrdered By: Jeremiah Corrales on 02-09-2025 Platelets LM Ql (Bld) ADEQUATE ADEQ [facility] Potassium measurement (mass/ volume)Ordered By: Jeremiah Corrales on 02-09-2025 Potassium (Unsp spec) [Mass/Vol] 4.3 mmol/L 3.3-5.1 [facility] RBC Auto (Bld) [#/Vol]Ordere d By: Jeremiah Corrales on 02-09-2025 RBC (Bld) [#/Vol] 4.22 10*6/uL 4.2-5.4 [facility] Respiratory pathogens detect ion panel by molecular detection methodOrdered By: Tono Gomez on 02-09-2025 Respiratory pathogens DNA and RNA panel BEBETO+probe (Resp) Parainfluenza 3 Abnormal [facility] Serum creatinine measurement (mass/volume)Ordered By: Jeremiah Corrales on 02-09-2025 Creatinine [Mass/Vol] 1.16 mg/dL 0.70-1.20 [facility] Serum glucose measurement (m ass/volume)Ordered By: Jeremiah Corrales on 02-09-2025 Glucose [Mass/Vol] 173 mg/dL High 70-99 [facility] Serum or plasma calcium melanie urement (mass/volume)Ordered By: Jeremiah Corrales on 02-09-2025 Calcium [Mass/Vol] 10.2 mg/dL 7.6-11.0 [facility] Serum or plasma urea nitroge n measurement (mass/volume)Ordered By: Jeremiah Corrales on 02-09-2025 Urea nitrogen [Mass/Vol] 23 mg/dL High 4-19 [facility] Sodium levelOrdered By: Jeremiah Corrales on 02-09-2025 Sodium [Moles/Vol] 140 mmol/L 133-145 [facility] Troponin T.cardiac [Mass/vol ume] in Serum or Plasma by High sensitivity methodOrdered By: Jeremiah Corrales on 02-09-2025 Troponin T.cardiac High sensitivity method [Mass/Vol] 119 ng/L High <14 [facility] Troponin T.cardiac High sensitivity method [Mass/Vol] 122 ng/L High <14 [facility] White blood cell (WBC) count Ordered By: Jeremiah Corrales on 02-09-2025 WBC (Bld) [#/Vol] 9.4 10*3/uL 4.4-11.0 [facility] Absolute lymphocyte countOrd ered By: Ramone Smiley on 02-07-2025 Lymphocytes Auto (Unsp spec) [#/Vol] 0.84 10*3/uL 0.83-4.51 [facility] Anion gap in Serum or Plasma Ordered By: Ramone Smiley on 02-07-2025 Anion gap [Moles/Vol] 12 mmol/L 5-15 [facility] Automated lymphocyte count a s percentage of total leukocytesOrdered By: Ramone Smiley on 02-07-2025 Lymphocytes/100 WBC Auto (Unsp spec) 7.3 % Low 19-41 [facility] BUN/creatinine ratioOrdered By: Ramone Smiley on 02-07-2025 Urea nitrogen/Creatinine [Mass ratio] 17.7 mg/mg 10-20 [facility] Basophil percentageOrdered B y: Ramone Smiley on 02-07-2025 Basophils/100 WBC (Bld) 0.1 % 0-1 [facility] Bilirubin, totalOrdered By: Ramone Smiley on 02-07-2025 Bilirubin [Mass/Vol] 0.25 mg/dL 0.00-1.30 [facility] CBC W/Diff, Automatedon 01-29 Absolute Lymph 0.84 X10 3/uL Normal 0.83-4.51 [facility] Comment on above: Order Comment: Order Date: 02/07/25Order Info: 0184-1 - CBCD Performed By: #### L 500.4050, L100.0100 ####[facility] [address] [place], [address] Absolute Neut 10.0 X10 3/uL High 2.0-7.7 [facility] Comment on above: Order Comment: Order Date: 02/07/25Order Info: 0184-1 - CBCD Performed By: #### L 500.4050, L100.0100 ####[facility] [address] [place], [address] Basophils/100 WBC (Bld) 0.1 % Normal 0-1 [facility] Comment on above: Order Comment: Order Date: 02/07/25Order Info: 0184-1 - CBCD Performed By: #### L 500.4050, L100.0100 ####[facility] [address] [place], [address] Eosinophils/100 WBC (Bld) 0.0 % Normal 0-5 [facility] Comment on above: Order Comment: Order Date: 02/07/25Order Info: 0184-1 - CBCD Performed By: #### L 500.4050, L100.0100 ####[facility] [address] [place], [address] Erythrocyte distribution width (RBC) [Ratio] 15.7 % High 11.6-14.6 [facility] Comment on above: Order Comment: Order Date: 02/07/25Order Info: 0184-1 - CBCD Performed By: #### L 500.4050, L100.0100 ####[facility] [address] [place], [address] Hematocrit (Bld) [Volume fraction] 36.8 % Low 37-47 [facility] Comment on above: Order Comment: Order Date: 02/07/25Order Info: 0184-1 - CBCD Performed By: #### L 500.4050, L100.0100 ####[facility] [address] [place], [address] Hemoglobin (Bld) [Mass/Vol] 11.4 g/dL Low 12.0-15.0 [facility] Comment on above: Order Comment: Order Date: 02/07/25Order Info: 183- - CBCD Performed By: #### L 500.4050, L100.0100 ####[facility] [address] [place], [address] IG% 0.400 Normal 0.0-0.9 [facility] Comment on above: Order Comment: Order Date: 02/07/25Order Info: 0184- - CBCD Result Comment: IG% - Immature Granulocytes (promyelocytes, myelocytes andmetamyelocytes) > 1% indicates that a LEFT SHIFT is Present. Performed By: #### L 500.4050, L100.0100 ####[facility] [address] [place], [address] Lymphocytes/100 WBC (Bld) 7.3 % Low 19-41 [facility] Comment on above: Order Comment: Order Date: 02/07/25Order Info: 0184-1 - CBCD Performed By: #### L 500.4050, L100.0100 ####[facility] [address] [place], [address] MCH (RBC) [Entitic mass] 27.9 pg Normal 27.0-32.0 [facility] Comment on above: Order Comment: Order Date: 02/07/25Order Info: 0184-1 - CBCD Performed By: #### L 500.4050, L100.0100 ####[facility] [address] [place], [address] MCHC (RBC) [Mass/Vol] 31.0 g/dL Low 32-36 [facility] Comment on above: Order Comment: Order Date: 02/07/25Order Info: 0184-1 - CBCD Performed By: #### L 500.4050, L100.0100 ####[facility] [address] [place], [address] MCV (RBC) [Entitic vol] 90.2 fL Normal 81-99 [facility] Comment on above: Order Comment: Order Date: 02/07/25Order Info: 0184- - CBCD Performed By: #### L 500.4050, L100.0100 ####[facility] [address] [place], [address] Monocytes/100 WBC (Bld) 5.2 % Normal 0-10 [facility] Comment on above: Order Comment: Order Date: 02/07/25Order Info: 0184- - CBCD Performed By: #### L 500.4050, L100.0100 ####[facility] [address] [place], [address] Neutrophils/100 WBC (Bld) 87.0 % High 47-70 [facility] Comment on above: Order Comment: Order Date: 02/07/25Order Info: 0184-1 - CBCD Performed By: #### L 500.4050, L100.0100 ####[facility] [address] [place], [address] Nucleated RBC (Bld) [#/Vol] 0 10*3/uL Normal 0-5 [facility] Comment on above: Order Comment: Order Date: 02/07/25Order Info: 0184-1 - CBCD Performed By: #### L 500.4050, L100.0100 ####[facility] [address] [place], [address] Platelet mean volume (Bld) [Entitic vol] 11.5 fL Normal 6.2-12.0 [facility] Comment on above: Order Comment: Order Date: 02/07/25Order Info: 0184-1 - CBCD Performed By: #### L 500.4050, L100.0100 ####[facility] [address] [place], [address] Platelets (Bld) [#/Vol] 247 10*3/uL Normal 150-450 [facility] Comment on above: Order Comment: Order Date: 02/07/25Order Info: 0184-1 - CBCD Performed By: #### L 500.4050, L100.0100 ####[facility] [address] [place], [address] RBC (Bld) [#/Vol] 4.08 10*6/uL Low 4.2-5.4 [facility] Comment on above: Order Comment: Order Date: 02/07/25Order Info: 0184-1 - CBCD Performed By: #### L 500.4050, L100.0100 ####[facility] [address] [place], [address] RDW SD 51.8 fl High 35.1-43.9 [facility] Comment on above: Order Comment: Order Date: 02/07/25Order Info: 0184-1 - CBCD Performed By: #### L 500.4050, L100.0100 ####[facility] [address] [place], [address] WBC (Bld) [#/Vol] 11.5 10*3/uL High 4.4-11.0 [facility] Comment on above: Order Comment: Order Date: 02/07/25Order Info: 0184-1 - CBCD Performed By: #### L 500.4050, L100.0100 ####[facility] [address] [place], [address] Carbon dioxide, total [Moles /volume] in Central venous bloodOrdered By: Ramone Smiley on 02-07-2025 CO2 [Moles/Vol] 27.9 mmol/L 21.0-32.0 [facility] Chloride assayOrdered By: Richar Smiley on 02-07-2025 Chloride [Moles/Vol] 96 mmol/L Low 98-108 [facility] Comprehensive Metabolic Prof ilon 02-07-2025 Albumin [Mass/Vol] 3.3 g/dL Low 3.4-4.8 [facility] Comment on above: Order Comment: URINE UTOOrder Date: 02/07/25Order Info: 0786-1 - CMP Performed By: #### L 500.4050, L100.0100 ####[facility] [address] [place], [address] Albumin/Globulin [Mass ratio] 1.0 {ratio} Normal 0.9-2.4 [facility] Comment on above: Order Comment: URINE UTOOrder Date: 02/07/25Order Info: 0786-1 - CMP Performed By: #### L 500.4050, L100.0100 ####[facility] [address] [place], [address] ALK PHOS 86 U/L Normal 35-104 [facility] Comment on above: Order Comment: URINE UTOOrder Date: 02/07/25Order Info: 0786-1 - CMP Performed By: #### L 500.4050, L100.0100 ####[facility] [address] [place], [address] ALT [Catalytic activity/Vol] 20 U/L Normal <=34 [facility] Comment on above: Order Comment: URINE UTOOrder Date: 02/07/25Order Info: 0786-1 - CMP Performed By: #### L 500.4050, L100.0100 ####[facility] [address] [place], [address] AST [Catalytic activity/Vol] 29 U/L Normal <=31 [facility] Comment on above: Order Comment: URINE UTOOrder Date: 02/07/25Order Info: 0786-1 - CMP Performed By: #### L 500.4050, L100.0100 ####[facility] [address] [place], [address] Bilirubin [Mass/Vol] 0.25 mg/dL Normal 0.00-1.30 [facility] Comment on above: Order Comment: URINE UTOOrder Date: 02/07/25Order Info: 0786-1 - CMP Performed By: #### L 500.4050, L100.0100 ####[facility] [address] [place], [address] BUN/CRE 17.7 RATIO Normal 10-20 [facility] Comment on above: Order Comment: URINE UTOOrder Date: 02/07/25Order Info: 0786-1 - CMP Performed By: #### L 500.4050, L100.0100 ####[facility] [address] [place], [address] Calcium [Mass/Vol] 10.2 mg/dL Normal 7.6-11.0 [facility] Comment on above: Order Comment: URINE UTOOrder Date: 02/07/25Order Info: 0786-1 - CMP Performed By: #### L 500.4050, L100.0100 ####[facility] [address] [place], [address] Chloride [Moles/Vol] 96 mmol/L Low 98-108 [facility] Comment on above: Order Comment: URINE UTOOrder Date: 02/07/25Order Info: 0786-1 - CMP Performed By: #### L 500.4050, L100.0100 ####[facility] [address] [place], [address] CO2 [Moles/Vol] 27.9 mmol/L Normal 21.0-32.0 [facility] Comment on above: Order Comment: URINE UTOOrder Date: 02/07/25Order Info: 0786-1 - CMP Performed By: #### L 500.4050, L100.0100 ####[facility] [address] [place], [address] Creatinine [Mass/Vol] 1.37 mg/dL High 0.70-1.20 [facility] Comment on above: Order Comment: URINE UTOOrder Date: 02/07/25Order Info: 0786-1 - CMP Performed By: #### L 500.4050, L100.0100 ####[facility] [address] [place], [address] GAP 12 Normal 5-15 [facility] Comment on above: Order Comment: URINE UTOOrder Date: 02/07/25Order Info: 0786-1 - CMP Performed By: #### L 500.4050, L100.0100 ####[facility] [address] [place], [address] GFR/1.73 sq M.predicted among non-blacks MDRD (S/P/Bld) [Vol rate/Area] 39 mL/min/{1.73_m2} Low >60 [facility] Comment on above: Order Comment: URINE UTOOrder Date: 02/07/25Order Info: 0786-1 - CMP Result Comment: mL/m in/1.73m2 CKD-EPI Creatinine Equation (2020) Performed By: #### L 500.4050, L100.0100 ####[facility] [address] [place], [address] Globulin (S) [Mass/Vol] 3.2 g/dL Normal 2.2-4.2 [facility] Comment on above: Order Comment: URINE UTOOrder Date: 02/07/25Order Info: 0786-1 - CMP Performed By: #### L 500.4050, L100.0100 ####[facility] [address] [place], [address] Glucose [Mass/Vol] 254 mg/dL High 70-99 [facility] Comment on above: Order Comment: URINE UTOOrder Date: 02/07/25Order Info: 0786-1 - CMP Performed By: #### L 500.4050, L100.0100 ####[facility] [address] [place], [address] Potassium [Moles/Vol] 5.1 mmol/L Normal 3.3-5.1 [facility] Comment on above: Order Comment: URINE UTOOrder Date: 02/07/25Order Info: 785-1 - CMP Performed By: #### L 500.4050, L100.0100 ####[facility] [address] [place], [address] Sodium [Moles/Vol] 136 mmol/L Normal 133-145 [facility] Comment on above: Order Comment: URINE UTOOrder Date: 02/07/25Order Info: 07-1 - CMP Performed By: #### L 500.4050, L100.0100 ####[facility] [address] [place], [address] T PROT 6.5 g/dL Normal 5.9-8.4 [facility] Comment on above: Order Comment: URINE UTOOrder Date: 02/07/25Order Info: 0786-1 - CMP Performed By: #### L 500.4050, L100.0100 ####[facility] [address] [place], [address] Urea nitrogen [Mass/Vol] 24 mg/dL High 4-19 [facility] Comment on above: Order Comment: URINE UTOOrder Date: 02/07/25Order Info: 0786-1 - CMP Performed By: #### L 500.4050, L100.0100 ####[facility] [address] [place], [address] Eosinophil percentageOrdered By: Ramone Smiley on 02-07-2025 Eosinophils/100 WBC (Bld) 0.0 % 0-5 [facility] Erythrocyte distribution wid th ratioOrdered By: Ramone Smiley on 02-07-2025 Erythrocyte distribution width (RBC) [Ratio] 15.7 % High 11.6-14.6 [facility] Erythrocyte distribution wid th standard deviationOrdered By: Ramone Smiley on 02-07-2025 Erythrocyte distribution width (RBC) [Ratio] 51.8 fl High 35.1-43.9 [facility] Glomerular filtration rate ( GFR) estimation/1.73 sq m using serum, plasma, or whole bOrdered By: Ramone Smiley on 02-07-2025 GFR/1.73 sq M.predicted among non-blacks MDRD (S/P/Bld) [Vol rate/Area] 39 mL/min/{1.73_m2} Low >60 [facility] Hematocrit Auto (Bld) [Volum e fraction]Ordered By: Ramone Smiley on 02-07-2025 Hematocrit (Bld) [Volume fraction] 36.8 % Low 37-47 [facility] Hemoglobin measurementOrdere d By: Ramone Smiley on 02-07-2025 Hemoglobin (Bld) [Mass/Vol] 11.4 g/dL Low 12.0-15.0 [facility] Immature granulocytes/100 WB C Auto (Bld)Ordered By: Ramone Smiley on 02-07-2025 Immature granulocytes/100 WBC (Bld) 0.400 % 0.0-0.9 [facility] MCV (mean corpuscular volume ) determinationOrdered By: Ramone Smiley on 02-07-2025 MCV (RBC) [Entitic vol] 90.2 fL 81-99 [facility] Mean corpuscular hemoglobin (MCH) determinationOrdered By: Ramone Smiley on 02-07-2025 MCH (RBC) [Entitic mass] 27.9 pg 27.0-32.0 [facility] Monocyte percentageOrdered B y: Ramone Smiley on 02-07-2025 Monocytes/100 WBC (Bld) 5.2 % 0-10 [facility] Neutrophil percentageOrdered By: Ramone Smiley on 02-07-2025 Neutrophils/100 WBC (Bld) 87.0 % High 47-70 [facility] No Panel InformationOrdered By: Ramone Smiley on 02-07-2025 29 U/L <32 [facility] Platelet countOrdered By: Richar Smiley on 02-07-2025 Platelets (Bld) [#/Vol] 247 10*3/uL 150-450 [facility] Potassium measurement (mass/ volume)Ordered By: Ramone Smiley on 02-07-2025 Potassium (Unsp spec) [Mass/Vol] 5.1 mmol/L 3.3-5.1 [facility] RBC Auto (Bld) [#/Vol]Ordere d By: Ramone Smiley on 02-07-2025 RBC (Bld) [#/Vol] 4.08 10*6/uL Low 4.2-5.4 [facility] Serum creatinine measurement (mass/volume)Ordered By: Ramone Smiley on 02-07-2025 Creatinine [Mass/Vol] 1.37 mg/dL High 0.70-1.20 [facility] Serum globulin measurementOr dered By: Ramone Smiley on 02-07-2025 Globulin (S) [Mass/Vol] 3.2 g/dL 2.2-4.2 [facility] Serum glucose measurement (m ass/volume)Ordered By: Ramone Smiley on 02-07-2025 Glucose [Mass/Vol] 254 mg/dL High 70-99 [facility] Serum or plasma alanine kelley otransferase (ALT) measurementOrdered By: Ramone Smiley on 02-07-2025 ALT [Catalytic activity/Vol] 20 U/L <35 [facility] Serum or plasma albumin melanie urement (mass/volume)Ordered By: Ramone Smiley on 02-07-2025 Albumin [Mass/Vol] 3.3 g/dL Low 3.4-4.8 [facility] Serum or plasma albumin/glob ulin mass ratioOrdered By: Ramone Smiley on 02-07-2025 Albumin/Globulin [Mass ratio] 1.0 {ratio} 0.9-2.4 [facility] Serum or plasma alkaline lissa sphatase measurementOrdered By: Ramone Smiley on 02-07-2025 ALP [Catalytic activity/Vol] 86 U/L 35-104 [facility] Serum or plasma calcium melanie urement (mass/volume)Ordered By: Ramone Smiley on 02-07-2025 Calcium [Mass/Vol] 10.2 mg/dL 7.6-11.0 [facility] Serum or plasma urea nitroge n measurement (mass/volume)Ordered By: Ramone Smiley on 02-07-2025 Urea nitrogen [Mass/Vol] 24 mg/dL High 4-19 [facility] Sodium levelOrdered By: Ramone Smiley on 02-07-2025 Sodium [Moles/Vol] 136 mmol/L 133-145 [facility] Total proteinOrdered By: Lilliam Smiley on 02-07-2025 Protein [Mass/Vol] 6.5 g/dL 5.9-8.4 [facility] White blood cell (WBC) count Ordered By: Ramone Smiley on 02-07-2025 WBC (Bld) [#/Vol] 11.5 10*3/uL High 4.4-11.0 [facility] Bedside Glucoseon 02-06-2025 FINGERSTICK GLU 190 mg/dL High 74-106 [facility] Comment on above: Result Comment: KATARINA GEMENT OF PATIENT CARE PER NURSING PROTOCOL Performed By: #### L 501.080 ####[facility] [address] [place], [place], [address] FINGERSTICK GLU 237 mg/dL High 74-106 [facility] Comment on above: Result Comment: KATARINA GEMENT OF PATIENT CARE PER NURSING PROTOCOL Performed By: #### L 501.080 ####[facility] [address] [place], [place], [address] Discharge Instructionon Discharge Instruction Normal [facility] Electrocardiogram reportOrde red By: Marcelina Soto on 02-06-2025 EKG study [facility] Work Phone: [facility] deOrdered By: Lucio Borden on 02-06-2025 Glucose [Mass/Vol] 190 mg/dL High 74-106 [facility] Anion gap in Serum or Plasma Ordered By: Lucio Borden on 02-05-2025 Anion gap [Moles/Vol] 15 mmol/L - [facility] BUN/creatinine ratioOrdered By: Lucio Borden on 02-05-2025 Urea nitrogen/Creatinine [Mass ratio] 16.1 mg/mg - [facility] Basic Metabolic Profile (BMP )on 02-05-2025 BUN/CRE 16.1 RATIO Normal - [facility] Comment on above: Performed By: #### L 500.2500 ####[facility] [address] [place], [address] Calcium [Mass/Vol] 9.1 mg/dL Normal 7.6-11.0 [facility] Comment on above: Performed By: #### L 500.2500 ####[facility] [address] [place], [address] Chloride [Moles/Vol] 94 mmol/L Low 98-108 [facility] Comment on above: Performed By: #### L 500.2500 ####[facility] [address] [place], [address] CO2 [Moles/Vol] 26.4 mmol/L Normal 21.0-32.0 [facility] Comment on above: Performed By: #### L 500.2500 ####[facility] [address] [place], [address] Creatinine [Mass/Vol] 1.06 mg/dL Normal 0.70-1.20 [facility] Comment on above: Performed By: #### L 500.2500 ####[facility] [address] [place], [address] ECRCL 39.38 ml/min Low 50-250 [facility] Comment on above: Performed By: #### L 500.2500 ####[facility] [address] [place], [address] GAP 15 Normal 5-15 [facility] Comment on above: Performed By: #### L 500.2500 ####[facility] [address] [place], [address] GFR/1.73 sq M.predicted among non-blacks MDRD (S/P/Bld) [Vol rate/Area] 53 mL/min/{1.73_m2} Low >60 [facility] Comment on above: Result Comment: mL/m in/1.73m2 CKD-EPI Creatinine Equation (2020) Performed By: #### L 500.2500 ####[facility] [address] [place], [address] Glucose [Mass/Vol] 272 mg/dL High 70-99 [facility] Comment on above: Performed By: #### L 500.2500 ####[facility] [address] [place], [address] Potassium [Moles/Vol] 4.2 mmol/L Normal 3.3-5.1 [facility] Comment on above: Performed By: #### L 500.2500 ####[facility] [address] [place], [address] Sodium [Moles/Vol] 135 mmol/L Normal 133-145 [facility] Comment on above: Performed By: #### L 500.2500 ####[facility] [address] [place], [address] Urea nitrogen [Mass/Vol] 17 mg/dL Normal 4-19 [facility] Comment on above: Performed By: #### L 500.2500 ####[facility] [address] [place], [address] Bedside Glucoseon 02-05-2025 FINGERSTICK GLU 156 mg/dL High 74-106 [facility] Comment on above: Result Comment: KATARINA GARY OF PATIENT CARE PER NURSING PROTOCOL Performed By: #### L 501.080 ####[facility] [address] [place], [address] FINGERSTICK GLU 128 mg/dL High 74-106 [facility] Comment on above: Result Comment: KATARINA GEMENT OF PATIENT CARE PER NURSING PROTOCOL Performed By: #### L 501.080 ####[facility] [address] [place], [address] FINGERSTICK GLU 296 mg/dL High 74-106 [facility] Comment on above: Result Comment: KATARINA GEMENT OF PATIENT CARE PER NURSING PROTOCOL Performed By: #### L 501.080 ####[facility] [address] [place], [address] FINGERSTICK GLU 238 mg/dL High 74-106 [facility] Comment on above: Result Comment: KATARINA GEMENT OF PATIENT CARE PER NURSING PROTOCOL Performed By: #### L 501.080 ####[facility] [address] [place], [address] Carbon dioxide, total [Moles /volume] in Central venous bloodOrdered By: Lucio Borden on 02-05-2025 CO2 [Moles/Vol] 26.4 mmol/L 21.0-32.0 [facility] Chloride assayOrdered By: Cehn Borden on 02-05-2025 Chloride [Moles/Vol] 94 mmol/L Low 98-108 [facility] Glomerular filtration rate ( GFR) estimation/1.73 sq m using serum, plasma, or whole bOrdered By: Lucio Borden on 02-05-2025 GFR/1.73 sq M.predicted among non-blacks MDRD (S/P/Bld) [Vol rate/Area] 53 mL/min/{1.73_m2} Low >60 [facility] Potassium measurement (mass/ volume)Ordered By: Lucio Borden on 02-05-2025 Potassium (Unsp spec) [Mass/Vol] 4.2 mmol/L 3.3-5.1 [facility] Serum creatinine measurement (mass/volume)Ordered By: Lucio Borden on 02-05-2025 Creatinine [Mass/Vol] 1.06 mg/dL 0.70-1.20 [facility] Serum glucose measurement (m ass/volume)Ordered By: Lucio Borden on 02-05-2025 Glucose [Mass/Vol] 272 mg/dL High 70-99 [facility] Serum or plasma calcium melanie urement (mass/volume)Ordered By: Lucio Borden on 02-05-2025 Calcium [Mass/Vol] 9.1 mg/dL 7.6-11.0 [facility] Serum or plasma urea nitroge n measurement (mass/volume)Ordered By: Lucio Borden on 02-05-2025 Urea nitrogen [Mass/Vol] 17 mg/dL 4-19 [facility] Sodium levelOrdered By: Lucio Borden on 02-05-2025 Sodium [Moles/Vol] 135 mmol/L 133-145 [facility] 12 Lead EKGon 02-04-2025 12 Lead EKG Normal [facility] Absolute lymphocyte countOrd ered By: Aj Holley on 02-04-2025 Lymphocytes Auto (Unsp spec) [#/Vol] 1.75 10*3/uL 0.83-4.51 [facility] Anion gap in Serum or Plasma Ordered By: Aj Holley on 02-04-2025 Anion gap [Moles/Vol] 16 mmol/L High 5-15 [facility] Automated lymphocyte count a s percentage of total leukocytesOrdered By: jA Holley on 02-04-2025 Lymphocytes/100 WBC Auto (Unsp spec) 15.7 % Low 19-41 [facility] BUN/creatinine ratioOrdered By: Aj Holley on 02-04-2025 Urea nitrogen/Creatinine [Mass ratio] 13.2 mg/mg 10-20 [facility] Basic Metabolic Profile (BMP )on 02-04-2025 BUN/CRE 13.2 RATIO Normal - [facility] Comment on above: Performed By: #### L 500.2500, L100.0100 ####[facility] [address] [place], [address] Calcium [Mass/Vol] 8.9 mg/dL Normal 7.6-11.0 [facility] Comment on above: Performed By: #### L 500.2500, L100.0100 ####[facility] [address] [place], [address] Chloride [Moles/Vol] 95 mmol/L Low 98-108 [facility] Comment on above: Performed By: #### L 500.2500, L100.0100 ####[facility] [address] [place], [address] CO2 [Moles/Vol] 25.9 mmol/L Normal 21.0-32.0 [facility] Comment on above: Performed By: #### L 500.2500, L100.0100 ####[facility] [address] [place], [address] Creatinine [Mass/Vol] 1.14 mg/dL Normal 0.70-1.20 [facility] Comment on above: Performed By: #### L 500.2500, L100.0100 ####[facility] [address] [place], [address] ECRCL 37.95 ml/min Low 50-250 [facility] Comment on above: Performed By: #### L 500.2500, L100.0100 ####[facility] [address] [place], [address] GAP 16 High 5-15 [facility] Comment on above: Performed By: #### L 500.2500, L100.0100 ####[facility] [address] [place], [address] GFR/1.73 sq M.predicted among non-blacks MDRD (S/P/Bld) [Vol rate/Area] 48 mL/min/{1.73_m2} Low >60 [facility] Comment on above: Result Comment: mL/m in/1.73m2 CKD-EPI Creatinine Equation (2020) Performed By: #### L 500.2500, L100.0100 ####[facility] [address] [place], [address] Glucose [Mass/Vol] 132 mg/dL High 70-99 [facility] Comment on above: Performed By: #### L 500.2500, L100.0100 ####[facility] [address] [place], [address] Potassium [Moles/Vol] 3.9 mmol/L Normal 3.3-5.1 [facility] Comment on above: Result Comment: Hemo lysis present, Results??could be affected.?? Performed By: #### L 500.2500, L100.0100 ####[facility] [address] [place], [address] Sodium [Moles/Vol] 137 mmol/L Normal 133-145 [facility] Comment on above: Performed By: #### L 500.2500, L100.0100 ####[facility] [address] [place], [address] Urea nitrogen [Mass/Vol] 15 mg/dL Normal 4-19 [facility] Comment on above: Performed By: #### L 500.2500, L100.0100 ####[facility] [address] [place], [address] Basophil percentageOrdered B y: Aj Holley on 02-04-2025 Basophils/100 WBC (Bld) 0.2 % 0-1 [facility] Bedside Glucoseon 02-04-2025 FINGERSTICK GLU 179 mg/dL High 74-106 [facility] Comment on above: Result Comment: KATARINA GEMENT OF PATIENT CARE PER NURSING PROTOCOL Performed By: #### L 501.080 ####[facility] [address] [place], [address] FINGERSTICK GLU 240 mg/dL High 74-106 [facility] Comment on above: Result Comment: KATARINA GEMENT OF PATIENT CARE PER NURSING PROTOCOL Performed By: #### L 501.080 ####[facility] [address] [place], [address] CBC W/Diff, Automatedon 06-0 7-2024 Absolute Lymph 1.75 X10 3/uL Normal 0.83-4.51 [facility] Comment on above: Performed By: #### L 500.2500, L100.0100 ####[facility] [address] [place], [address] Absolute Neut 8.4 X10 3/uL High 2.0-7.7 [facility] Comment on above: Performed By: #### L 500.2500, L100.0100 ####[facility] [address] [place], [address] Basophils/100 WBC (Bld) 0.2 % Normal 0-1 [facility] Comment on above: Performed By: #### L 500.2500, L100.0100 ####[facility] [address] [place], [address] Eosinophils/100 WBC (Bld) 1.7 % Normal 0-5 [facility] Comment on above: Performed By: #### L 500.2500, L100.0100 ####[facility] [address] [place], [address] Erythrocyte distribution width (RBC) [Ratio] 15.9 % High 11.6-14.6 [facility] Comment on above: Performed By: #### L 500.2500, L100.0100 ####[facility] [address] [place], [address] Hematocrit (Bld) [Volume fraction] 34.1 % Low 37-47 [facility] Comment on above: Performed By: #### L 500.2500, L100.0100 ####[facility] [address] [place], [address] Hemoglobin (Bld) [Mass/Vol] 10.7 g/dL Low 12.0-15.0 [facility] Comment on above: Performed By: #### L 500.2500, L100.0100 ####[facility] [address] [place], [address] IG% 0.400 Normal 0.0-0.9 [facility] Comment on above: Result Comment: IG% - Immature Granulocytes (promyelocytes, myelocytes andmetamyelocytes) > 1% indicates that a LEFT SHIFT is Present. Performed By: #### L 500.2500, L100.0100 ####[facility] [address] [place], [address] Lymphocytes/100 WBC (Bld) 15.7 % Low 19-41 [facility] Comment on above: Performed By: #### L 500.2500, L100.0100 ####[facility] [address] [place], [address] MCH (RBC) [Entitic mass] 27.9 pg Normal 27.0-32.0 [facility] Comment on above: Performed By: #### L 500.2500, L100.0100 ####[facility] [address] [place], [address] MCHC (RBC) [Mass/Vol] 31.4 g/dL Low 32-36 [facility] Comment on above: Performed By: #### L 500.2500, L100.0100 ####[facility] [address] [place], [address] MCV (RBC) [Entitic vol] 88.8 fL Normal 81-99 [facility] Comment on above: Performed By: #### L 500.2500, L100.0100 ####[facility] [address] [place], [address] Monocytes/100 WBC (Bld) 6.6 % Normal 0-10 [facility] Comment on above: Performed By: #### L 500.2500, L100.0100 ####[facility] [address] [place], [address] Neutrophils/100 WBC (Bld) 75.4 % High 47-70 [facility] Comment on above: Performed By: #### L 500.2500, L100.0100 ####[facility] [address] [place], [address] Nucleated RBC (Bld) [#/Vol] 0 10*3/uL Normal 0-5 [facility] Comment on above: Performed By: #### L 500.2500, L100.0100 ####[facility] [address] [place], [address] Platelet mean volume (Bld) [Entitic vol] 11.3 fL Normal 6.2-12.0 [facility] Comment on above: Performed By: #### L 500.2500, L100.0100 ####[facility] [address] [place], [address] Platelets (Bld) [#/Vol] 185 10*3/uL Normal 150-450 [facility] Comment on above: Performed By: #### L 500.2500, L100.0100 ####[facility] [address] [place], [address] RBC (Bld) [#/Vol] 3.84 10*6/uL Low 4.2-5.4 [facility] Comment on above: Performed By: #### L 500.2500, L100.0100 ####[facility] [address] [place], [address] RDW SD 51.4 fl High 35.1-43.9 [facility] Comment on above: Performed By: #### L 500.2500, L100.0100 ####[facility] [address] [place], [address] WBC (Bld) [#/Vol] 11.2 10*3/uL High 4.4-11.0 [facility] Comment on above: Performed By: #### L 500.2500, L100.0100 ####[facility] [address] [place], [address] CTA Chest W/WO Contraston CTA Chest W/WO Contrast Normal [facility] Carbon dioxide, total [Moles /volume] in Central venous bloodOrdered By: Aj Holley on 02-04-2025 CO2 [Moles/Vol] 25.9 mmol/L 21.0-32.0 [facility] Chest PA and Lateralon 02-04 Chest PA and Lateral Normal [facility] Chloride assayOrdered By: Dahlia Holley on 02-04-2025 Chloride [Moles/Vol] 95 mmol/L Low 98-108 [facility] Emergency Department Summary on 02-04-2025 Emergency Department Summary Normal [facility] Eosinophil percentageOrdered By: Aj Holley on 02-04-2025 Eosinophils/100 WBC (Bld) 1.7 % 0-5 [facility] Erythrocyte distribution wid th ratioOrdered By: Aj Holley on 02-04-2025 Erythrocyte distribution width (RBC) [Ratio] 15.9 % High 11.6-14.6 [facility] Erythrocyte distribution wid th standard deviationOrdered By: Aj Holley on 02-04-2025 Erythrocyte distribution width (RBC) [Ratio] 51.4 fl High 35.1-43.9 [facility] Glomerular filtration rate ( GFR) estimation/1.73 sq m using serum, plasma, or whole bOrdered By: Aj Holley on 02-04-2025 GFR/1.73 sq M.predicted among non-blacks MDRD (S/P/Bld) [Vol rate/Area] 48 mL/min/{1.73_m2} Low >60 [facility] H AND P Exam - Hospitaliston 02-04-2025 H&P Exam - Hospitalist Normal [facility] Hematocrit Auto (Bld) [Volum e fraction]Ordered By: Aj Holley on 02-04-2025 Hematocrit (Bld) [Volume fraction] 34.1 % Low 37-47 [facility] Hemoglobin measurementOrdere d By: Aj Holley on 02-04-2025 Hemoglobin (Bld) [Mass/Vol] 10.7 g/dL Low 12.0-15.0 [facility] Immature granulocytes/100 WB C Auto (Bld)Ordered By: Aj Holley on 02-04-2025 Immature granulocytes/100 WBC (Bld) 0.400 % 0.0-0.9 [facility] L499.0042on 02-04-2025 Trop T High Sen 133 ng/L Invalid Interpretation Code <=14 [facility] Comment on above: Result Comment: Crit ical Result(s) Called at 0915: by: SHARONA EASLEY. ??Results read back by same. Performed By: #### L 499.0042 ####[facility] [address] [place], [address] L499.0043on 02-04-2025 Trop T High Sen 139 ng/L Invalid Interpretation Code <=14 [facility] Comment on above: Result Comment: Crit ical Result(s) Called at 1125: by: Michael SEGAL to [facility].??Results read back by same. Performed By: #### L 499.0043 ####[facility] [address] [place], [address] L501.4021on 02-04-2025 Trop T High Sen 139 ng/L Invalid Interpretation Code <=14 [facility] Comment on above: Result Comment: Crit ical Result(s) Called at 0809: by: SHARONA GO.??Results read back by same. Performed By: #### L 503.7505, L501.4021 ####[facility] [address] [place], [address] L503.7505on 02-04-2025 Natriuretic peptide B (Bld) [Mass/Vol] 6247 pg/mL High <=1800 [facility] Comment on above: Result Comment: Hear t Failure Unlikely: < 300 pg/mLHeart Failure Likely< 50 Years: > 450 pg/mL50-75 Years: > 900 pg/mL>75 Years: > 1800 pg/mL Performed By: #### L 503.7505, L501.4021 ####[facility] [address] [place], [address] MCV (mean corpuscular volume ) determinationOrdered By: Aj Holley on 02-04-2025 MCV (RBC) [Entitic vol] 88.8 fL 81-99 [facility] Mean corpuscular hemoglobin (MCH) determinationOrdered By: Aj Holley on 02-04-2025 MCH (RBC) [Entitic mass] 27.9 pg 27.0-32.0 [facility] Monocyte percentageOrdered B y: Aj Holley on 02-04-2025 Monocytes/100 WBC (Bld) 6.6 % 0-10 [facility] Natriuretic peptide.B prohor hayley N-Terminal [Mass/volume] in Serum or PlasmaOrdered By: Aj Holley on 02-04-2025 Natriuretic peptide.B prohormone N-Terminal [Mass/Vol] 6247 pg/mL High <1800 [facility] Neutrophil percentageOrdered By: Aj Holley on 02-04-2025 Neutrophils/100 WBC (Bld) 75.4 % High 47-70 [facility] Platelet countOrdered By: Dahlia Holley on 02-04-2025 Platelets (Bld) [#/Vol] 185 10*3/uL 150-450 [facility] Potassium measurement (mass/ volume)Ordered By: Aj Holley on 02-04-2025 Potassium (Unsp spec) [Mass/Vol] 3.9 mmol/L 3.3-5.1 [facility] RBC Auto (Bld) [#/Vol]Ordere d By: Aj Holley on 02-04-2025 RBC (Bld) [#/Vol] 3.84 10*6/uL Low 4.2-5.4 [facility] Serum creatinine measurement (mass/volume)Ordered By: Aj Holley on 02-04-2025 Creatinine [Mass/Vol] 1.14 mg/dL 0.70-1.20 [facility] Serum glucose measurement (m ass/volume)Ordered By: Aj Holley on 02-04-2025 Glucose [Mass/Vol] 132 mg/dL High 70-99 [facility] Serum or plasma calcium melanie urement (mass/volume)Ordered By: Aj Holley on 02-04-2025 Calcium [Mass/Vol] 8.9 mg/dL 7.6-11.0 [facility] Serum or plasma urea nitroge n measurement (mass/volume)Ordered By: Aj Holley on 02-04-2025 Urea nitrogen [Mass/Vol] 15 mg/dL 4- [facility] Sodium levelOrdered By: Reynaldo Holley on 02-04-2025 Sodium [Moles/Vol] 137 mmol/L 133-145 [facility] Troponin T.cardiac [Mass/vol ume] in Serum or Plasma by High sensitivity methodOrdered By: Aj Holley on 02-04-2025 Troponin T.cardiac High sensitivity method [Mass/Vol] 139 ng/L High <14 [facility] Troponin T.cardiac High sensitivity method [Mass/Vol] 133 ng/L High <14 [facility] Troponin T.cardiac High sensitivity method [Mass/Vol] 139 ng/L High <14 [facility] White blood cell (WBC) count Ordered By: Aj Holley on 02-04-2025 WBC (Bld) [#/Vol] 11.2 10*3/uL High 4.4-11.0 [facility] Cardiology Visit Reporton Cardiology Visit Report Normal [facility] Basic Metabolic Profile (BMP )on 01-30-2025 BUN Normal - [facility] Comment on above: Result Comment: Canc elled via OM: Order cancelled - Patient discharged Performed By: #### L 100.0100, L500.2500 ####[facility] [address] [place], [address] BUN/CRE Normal 10- [facility] Comment on above: Result Comment: Canc elled via OM: Order cancelled - Patient discharged Performed By: #### L 100.0100, L500.2500 ####[facility] [address] [place], [address] Calcium Normal 7.6-11.0 [facility] Comment on above: Result Comment: Canc elled via OM: Order cancelled - Patient discharged Performed By: #### L 100.0100, L500.2500 ####[facility] [address] [place], [address] CL Normal 98-108 [facility] Comment on above: Result Comment: Canc elled via OM: Order cancelled - Patient discharged Performed By: #### L 100.0100, L500.2500 ####[facility] [address] [place], [address] CO2 Normal 21.0-32.0 [facility] Comment on above: Result Comment: Canc elled via OM: Order cancelled - Patient discharged Performed By: #### L 100.0100, L500.2500 ####[facility] [address] [place], [address] CREAT,SERUM Normal 0.70-1.20 [facility] Comment on above: Result Comment: Canc elled via OM: Order cancelled - Patient discharged Performed By: #### L 100.0100, L500.2500 ####[facility] [address] [place], [address] eGFR Normal >60 [facility] Comment on above: Result Comment: Canc elled via OM: Order cancelled - Patient discharged Performed By: #### L 100.0100, L500.2500 ####[facility] [address] [place], [address] GAP Normal 5-15 [facility] Comment on above: Result Comment: Canc elled via OM: Order cancelled - Patient discharged Performed By: #### L 100.0100, L500.2500 ####[facility] [address] [place], [address] GLU Normal 70-99 [facility] Comment on above: Result Comment: Canc elled via OM: Order cancelled - Patient discharged Performed By: #### L 100.0100, L500.2500 ####[facility] [address] [place], [address] Potassium Normal 3.3-5.1 [facility] Comment on above: Result Comment: Canc elled via OM: Order cancelled - Patient discharged Performed By: #### L 100.0100, L500.2500 ####[facility] [address] [place], [address] Basic Metabolic Profile (BMP) Normal 133-145 [facility] Comment on above: Result Comment: Canc elled via OM: Order cancelled - Patient discharged Performed By: #### L 100.0100, L500.2500 ####[facility] [address] [place], [address] CBC W/Diff, Automatedon 06-0 2-2024 Absolute Neut Normal 2.0-7.7 [facility] Comment on above: Result Comment: Canc elled via OM: Order cancelled - Patient discharged Performed By: #### L 100.0100, L500.2500 ####[facility] [address] [place], [address] HCT Normal 37-47 [facility] Comment on above: Result Comment: Canc elled via OM: Order cancelled - Patient discharged Performed By: #### L 100.0100, L500.2500 ####[facility] [address] [place], [address] HGB Normal 12.0-15.0 [facility] Comment on above: Result Comment: Canc elled via OM: Order cancelled - Patient discharged Performed By: #### L 100.0100, L500.2500 ####[facility] [address] [place], [address] MCH Normal 27.0-32.0 [facility] Comment on above: Result Comment: Canc elled via OM: Order cancelled - Patient discharged Performed By: #### L 100.0100, L500.2500 ####[facility] [address] [place], [address] MCHC Normal 32-36 [facility] Comment on above: Result Comment: Canc elled via OM: Order cancelled - Patient discharged Performed By: #### L 100.0100, L500.2500 ####[facility] [address] [place], [address] MCV Normal 81-99 [facility] Comment on above: Result Comment: Canc elled via OM: Order cancelled - Patient discharged Performed By: #### L 100.0100, L500.2500 ####[facility] [address] [place], [address] NEUT% Normal 47-70 [facility] [facility] Comment on above: Result Comment: Canc elled via OM: Order cancelled - Patient discharged Performed By: #### L 100.0100, L500.2500 ####[facility] [address] [place], [address] PLT Normal 150-450 [facility] Comment on above: Result Comment: Canc elled via OM: Order cancelled - Patient discharged Performed By: #### L 100.0100, L500.2500 ####[facility] [address] [place], [address] RBC Normal 4.2-5.4 [facility] Comment on above: Result Comment: Canc elled via OM: Order cancelled - Patient discharged Performed By: #### L 100.0100, L500.2500 ####[facility] [address] [place], [address] RDW CV Normal 11.6-14.6 [facility] Comment on above: Result Comment: Canc elled via OM: Order cancelled - Patient discharged Performed By: #### L 100.0100, L500.2500 ####[facility] [address] [place], [address] RDW SD Normal 35.1-43.9 [facility] Comment on above: Result Comment: Canc elled via OM: Order cancelled - Patient discharged Performed By: #### L 100.0100, L500.2500 ####[facility] [address] [place], [address] WBC Normal 4.4-11.0 [facility] Comment on above: Result Comment: Canc elled via OM: Order cancelled - Patient discharged Performed By: #### L 100.0100, L500.2500 ####[facility] [address] [place], [address] Basic Metabolic Profile (BMP )on 01-29-2025 BUN Normal 4-19 [facility] Comment on above: Result Comment: Canc elled via OM: Order cancelled - Patient discharged Performed By: #### L 100.0100, L500.2500 ####[facility] [address] [place], [address] BUN/CRE Normal 10-20 [facility] Comment on above: Result Comment: Canc elled via OM: Order cancelled - Patient discharged Performed By: #### L 100.0100, L500.2500 ####[facility] [address] [place], [address] Calcium Normal 7.6-11.0 [facility] Comment on above: Result Comment: Canc elled via OM: Order cancelled - Patient discharged Performed By: #### L 100.0100, L500.2500 ####[facility] [address] [place], [address] CL Normal 98-108 [facility] Comment on above: Result Comment: Canc elled via OM: Order cancelled - Patient discharged Performed By: #### L 100.0100, L500.2500 ####[facility] [address] [place], [address] CO2 Normal 21.0-32.0 [facility] Comment on above: Result Comment: Canc elled via OM: Order cancelled - Patient discharged Performed By: #### L 100.0100, L500.2500 ####[facility] [address] [place], [address] CREAT,SERUM Normal 0.70-1.20 [facility] Comment on above: Result Comment: Canc elled via OM: Order cancelled - Patient discharged Performed By: #### L 100.0100, L500.2500 ####[facility] [address] [place], [address] eGFR Normal >60 [facility] Comment on above: Result Comment: Canc elled via OM: Order cancelled - Patient discharged Performed By: #### L 100.0100, L500.2500 ####[facility] [address] [place], [address] GAP Normal 5-15 [facility] Comment on above: Result Comment: Canc elled via OM: Order cancelled - Patient discharged Performed By: #### L 100.0100, L500.2500 ####[facility] [address] [place], [address] GLU Normal 70-99 [facility] Comment on above: Result Comment: Canc elled via OM: Order cancelled - Patient discharged Performed By: #### L 100.0100, L500.2500 ####[facility] [address] [place], [address] Potassium Normal 3.3-5.1 [facility] Comment on above: Result Comment: Canc elled via OM: Order cancelled - Patient discharged Performed By: #### L 100.0100, L500.2500 ####[facility] [facility] [address] [place], [address] Basic Metabolic Profile (BMP) Normal 133-145 [facility] Comment on above: Result Comment: Canc elled via OM: Order cancelled - Patient discharged Performed By: #### L 100.0100, L500.2500 ####[facility] [address] [place], [address] CBC W/Diff, Automatedon 06-0 Absolute Neut Normal 2.0-7.7 [facility] Comment on above: Result Comment: Canc elled via OM: Order cancelled - Patient discharged Performed By: #### L 100.0100, L500.2500 ####[facility] [address] [place], [address] HCT Normal 37-47 [facility] Comment on above: Result Comment: Canc elled via OM: Order cancelled - Patient discharged Performed By: #### L 100.0100, L500.2500 ####[facility] [address] [place], [address] HGB Normal 12.0-15.0 [facility] Comment on above: Result Comment: Canc elled via OM: Order cancelled - Patient discharged Performed By: #### L 100.0100, L500.2500 ####[facility] [address] [place], [address] MCH Normal 27.0-32.0 [facility] Comment on above: Result Comment: Canc elled via OM: Order cancelled - Patient discharged Performed By: #### L 100.0100, L500.2500 ####[facility] [address] [place], [address] MCHC Normal 32-36 [facility] Comment on above: Result Comment: Canc elled via OM: Order cancelled - Patient discharged Performed By: #### L 100.0100, L500.2500 ####[facility] [address] [place], [address] MCV Normal 81-99 [facility] Comment on above: Result Comment: Canc elled via OM: Order cancelled - Patient discharged Performed By: #### L 100.0100, L500.2500 ####[facility] [address] [place], [address] NEUT% Normal 47-70 [facility] Comment on above: Result Comment: Canc elled via OM: Order cancelled - Patient discharged Performed By: #### L 100.0100, L500.2500 ####[facility] [address] [place], [address] PLT Normal 150-450 [facility] Comment on above: Result Comment: Canc elled via OM: Order cancelled - Patient discharged Performed By: #### L 100.0100, L500.2500 ####[facility] [address] [place], [address] RBC Normal 4.2-5.4 [facility] Comment on above: Result Comment: Canc elled via OM: Order cancelled - Patient discharged Performed By: #### L 100.0100, L500.2500 ####[facility] [address] [place], [address] RDW CV Normal 11.6-14.6 [facility] Comment on above: Result Comment: Canc elled via OM: Order cancelled - Patient discharged Performed By: #### L 100.0100, L500.2500 ####[facility] [address] [place], [address] RDW SD Normal 35.1-43.9 [facility] Comment on above: Result Comment: Canc elled via OM: Order cancelled - Patient discharged Performed By: #### L 100.0100, L500.2500 ####[facility] [address] [place], [address] WBC Normal 4.4-11.0 [facility] Comment on above: Result Comment: Canc elled via OM: Order cancelled - Patient discharged Performed By: #### L 100.0100, L500.2500 ####[facility] [address] [place], [address] Basic Metabolic Profile (BMP )on 01-28-2025 BUN Normal 4-19 [facility] Comment on above: Result Comment: Canc elled via OM: Order cancelled - Patient discharged Performed By: #### L 500.2500, L100.0100 ####[facility] [address] [place], [address] BUN/CRE Normal 10-20 [facility] Comment on above: Result Comment: Canc elled via OM: Order cancelled - Patient discharged Performed By: #### L 500.2500, L100.0100 ####[facility] [address] [place], [address] Calcium Normal 7.6-11.0 [facility] Comment on above: Result Comment: Canc elled via OM: Order cancelled - Patient discharged Performed By: #### L 500.2500, L100.0100 ####[facility] [address] [place], [address] CL Normal 98-108 [facility] Comment on above: Result Comment: Canc elled via OM: Order cancelled - Patient discharged Performed By: #### L 500.2500, L100.0100 ####[facility] [address] [place], [address] CO2 Normal 21.0-32.0 [facility] Comment on above: Result Comment: Canc elled via OM: Order cancelled - Patient discharged Performed By: #### L 500.2500, L100.0100 ####[facility] [address] [place], [address] CREAT,SERUM Normal 0.70-1.20 [facility] Comment on above: Result Comment: Canc elled via OM: Order cancelled - Patient discharged Performed By: #### L 500.2500, L100.0100 ####[facility] [address] [place], [address] eGFR Normal >60 [facility] Comment on above: Result Comment: Canc elled via OM: Order cancelled - Patient discharged Performed By: #### L 500.2500, L100.0100 ####[facility] [address] [place], [address] GAP Normal 5-15 [facility] Comment on above: Result Comment: Canc elled via OM: Order cancelled - Patient discharged Performed By: #### L 500.2500, L100.0100 ####[facility] [address] [place], [address] GLU Normal 70-99 [facility] Comment on above: Result Comment: Canc elled via OM: Order cancelled - Patient discharged Performed By: #### L 500.2500, L100.0100 ####[facility] [address] [place], [address] Potassium Normal 3.3-5.1 [facility] Comment on above: Result Comment: Canc elled via OM: Order cancelled - Patient discharged Performed By: #### L 500.2500, L100.0100 ####[facility] [address] [place], [address] Basic Metabolic Profile (BMP) Normal 133-145 [facility] Comment on above: Result Comment: Canc elled via OM: Order cancelled - Patient discharged Performed By: #### L 500.2500, L100.0100 ####[facility] [address] [place], [address] CBC W/Diff, Automatedon 05-3 Absolute Neut Normal 2.0-7.7 [facility] Comment on above: Result Comment: Canc elled via OM: Order cancelled - Patient discharged Performed By: #### L 500.2500, L100.0100 ####[facility] [address] [place], [address] HCT Normal 37-47 [facility] Comment on above: Result Comment: Canc elled via OM: Order cancelled - Patient discharged Performed By: #### L 500.2500, L100.0100 ####[facility] [address] [place], [address] HGB Normal 12.0-15.0 [facility] Comment on above: Result Comment: Canc elled via OM: Order cancelled - Patient discharged Performed By: #### L 500.2500, L100.0100 ####[facility] [address] [place], [address] MCH Normal 27.0-32.0 [facility] Comment on above: Result Comment: Canc elled via OM: Order cancelled - Patient discharged Performed By: #### L 500.2500, L100.0100 ####[facility] [address] [place], [address] MCHC Normal 32-36 [facility] Comment on above: Result Comment: Canc elled via OM: Order cancelled - Patient discharged Performed By: #### L 500.2500, L100.0100 ####[facility] [address] [place], [address] MCV Normal 81-99 [facility] Comment on above: Result Comment: Canc elled via OM: Order cancelled - Patient discharged Performed By: #### L 500.2500, L100.0100 ####[facility] [address] [place], [address] NEUT% Normal 47-70 [facility] Comment on above: Result Comment: Canc elled via OM: Order cancelled - Patient discharged Performed By: #### L 500.2500, L100.0100 ####[facility] [address] [place], [address] PLT Normal 150-450 [facility] Comment on above: Result Comment: Canc elled via OM: Order cancelled - Patient discharged Performed By: #### L 500.2500, L100.0100 ####[facility] [address] [place], [address] RBC Normal 4.2-5.4 [facility] Comment on above: Result Comment: Canc elled via OM: Order cancelled - Patient discharged Performed By: #### L 500.2500, L100.0100 ####[facility] [address] [place], [address] RDW CV Normal 11.6-14.6 [facility] Comment on above: Result Comment: Canc elled via OM: Order cancelled - Patient discharged Performed By: #### L 500.2500, L100.0100 ####[facility] [address] [place], [address] RDW SD Normal 35.1-43.9 [facility] Comment on above: Result Comment: Canc elled via OM: Order cancelled - Patient discharged Performed By: #### L 500.2500, L100.0100 ####[facility] [address] [place], [address] WBC Normal 4.4-11.0 [facility] Comment on above: Result Comment: Canc elled via OM: Order cancelled - Patient discharged Performed By: #### L 500.2500, L100.0100 ####[facility] [address] [place], [address] Basic Metabolic Profile (BMP )on 01-27-2025 BUN Normal 4-19 [facility] Comment on above: Result Comment: Canc elled via OM: Order cancelled - Patient discharged Performed By: #### L 500.2500, L100.0100 ####[facility] [address] [place], [address] BUN/CRE Normal 10-20 [facility] Comment on above: Result Comment: Canc elled via OM: Order cancelled - Patient discharged Performed By: #### L 500.2500, L100.0100 ####[facility] [address] [place], [address] Calcium Normal 7.6-11.0 [facility] Comment on above: Result Comment: Canc elled via OM: Order cancelled - Patient discharged Performed By: #### L 500.2500, L100.0100 ####[facility] [address] [place], [address] CL Normal 98-108 [facility] Comment on above: Result Comment: Canc elled via OM: Order cancelled - Patient discharged Performed By: #### L 500.2500, L100.0100 ####[facility] [address] [place], [address] CO2 Normal 21.0-32.0 [facility] Comment on above: Result Comment: Canc elled via OM: Order cancelled - Patient discharged Performed By: #### L 500.2500, L100.0100 ####[facility] [address] [place], [address] CREAT,SERUM Normal 0.70-1.20 [facility] Comment on above: Result Comment: Canc elled via OM: Order cancelled - Patient discharged Performed By: #### L 500.2500, L100.0100 ####[facility] [address] [place], [address] eGFR Normal >60 [facility] Comment on above: Result Comment: Canc elled via OM: Order cancelled - Patient discharged Performed By: #### L 500.2500, L100.0100 ####[facility] [address] [place], [address] GAP Normal 5-15 [facility] Comment on above: Result Comment: Canc elled via OM: Order cancelled - Patient discharged Performed By: #### L 500.2500, L100.0100 ####[facility] [address] [place], [address] GLU Normal 70-99 [facility] Comment on above: Result Comment: Canc elled via OM: Order cancelled - Patient discharged Performed By: #### L 500.2500, L100.0100 ####[facility] [address] [place], [address] Potassium Normal 3.3-5.1 [facility] Comment on above: Result Comment: Canc elled via OM: Order cancelled - Patient discharged Performed By: #### L 500.2500, L100.0100 ####[facility] [address] [place], [address] Basic Metabolic Profile (BMP) Normal 133-145 [facility] Comment on above: Result Comment: Canc elled via OM: Order cancelled - Patient discharged Performed By: #### L 500.2500, L100.0100 ####[facility] [address] [place], [address] CBC W/Diff, Automatedon 05-3 0-2024 Absolute Neut Normal 2.0-7.7 [facility] Comment on above: Result Comment: Canc elled via OM: Order cancelled - Patient discharged Performed By: #### L 500.2500, L100.0100 ####[facility] [address] [place], [address] HCT Normal 37-47 [facility] Comment on above: Result Comment: Canc elled via OM: Order cancelled - Patient discharged Performed By: #### L 500.2500, L100.0100 ####[facility] [address] [place], [address] HGB Normal 12.0-15.0 [facility] Comment on above: Result Comment: Canc elled via OM: Order cancelled - Patient discharged Performed By: #### L 500.2500, L100.0100 ####[facility] [address] [place], [address] MCH Normal 27.0-32.0 [facility] Comment on above: Result Comment: Canc elled via OM: Order cancelled - Patient discharged Performed By: #### L 500.2500, L100.0100 ####[facility] [address] [place], [address] MCHC Normal 32-36 [facility] Comment on above: Result Comment: Canc elled via OM: Order cancelled - Patient discharged Performed By: #### L 500.2500, L100.0100 ####[facility] [address] [place], [address] MCV Normal 81-99 [facility] Comment on above: Result Comment: Canc elled via OM: Order cancelled - Patient discharged Performed By: #### L 500.2500, L100.0100 ####[facility] [address] [place], [address] NEUT% Normal 47-70 [facility] Comment on above: Result Comment: Canc elled via OM: Order cancelled - Patient discharged Performed By: #### L 500.2500, L100.0100 ####[facility] [address] [place], [address] PLT Normal 150-450 [facility] Comment on above: Result Comment: Canc elled via OM: Order cancelled - Patient discharged Performed By: #### L 500.2500, L100.0100 ####[facility] [address] [place], [address] RBC Normal 4.2-5.4 [facility] Comment on above: Result Comment: Canc elled via OM: Order cancelled - Patient discharged Performed By: #### L 500.2500, L100.0100 ####[facility] [address] [place], [address] RDW CV Normal 11.6-14.6 [facility] Comment on above: Result Comment: Canc elled via OM: Order cancelled - Patient discharged Performed By: #### L 500.2500, L100.0100 ####[facility] [address] [place], [address] RDW SD Normal 35.1-43.9 [facility] Comment on above: Result Comment: Canc elled via OM: Order cancelled - Patient discharged Performed By: #### L 500.2500, L100.0100 ####[facility] [address] [place], [address] WBC Normal 4.4-11.0 [facility] Comment on above: Result Comment: Canc elled via OM: Order cancelled - Patient discharged Performed By: #### L 500.2500, L100.0100 ####[facility] [address] [place], [address] Absolute lymphocyte countOrd ered By: Jg Bryan on 01-26-2025 Lymphocytes Auto (Unsp spec) [#/Vol] 2.24 10*3/uL 0.83-4.51 [facility] Anion gap in Serum or Plasma Ordered By: Jg Bryan on 01-26-2025 Anion gap [Moles/Vol] 10 mmol/L 5-15 [facility] Automated lymphocyte count a s percentage of total leukocytesOrdered By: Jg Bryan on 01-26-2025 Lymphocytes/100 WBC Auto (Unsp spec) 25.1 % 19-41 [facility] BUN/creatinine ratioOrdered By: Jg Bryan on 01-26-2025 Urea nitrogen/Creatinine [Mass ratio] 30.2 mg/mg High 10-20 [facility] Basic Metabolic Profile (BMP )on 01-26-2025 BUN Normal 4-19 [facility] Comment on above: Result Comment: Canc elled via OM: Order cancelled - Patient discharged Performed By: #### L 100.0100, L500.2500 ####[facility] [address] [place], [address] BUN/CRE Normal 10-20 [facility] Comment on above: Result Comment: Canc elled via OM: Order cancelled - Patient discharged Performed By: #### L 100.0100, L500.2500 ####[facility] [address] [place], [address] Calcium Normal 7.6-11.0 [facility] Comment on above: Result Comment: Canc elled via OM: Order cancelled - Patient discharged Performed By: #### L 100.0100, L500.2500 ####[facility] [address] [place], [address] CL Normal 98-108 [facility] Comment on above: Result Comment: Canc elled via OM: Order cancelled - Patient discharged Performed By: #### L 100.0100, L500.2500 ####[facility] [address] [place], [address] CO2 Normal 21.0-32.0 [facility] Comment on above: Result Comment: Canc elled via OM: Order cancelled - Patient discharged Performed By: #### L 100.0100, L500.2500 ####[facility] [address] [place], [address] CREAT,SERUM Normal 0.70-1.20 [facility] Comment on above: Result Comment: Canc elled via OM: Order cancelled - Patient discharged Performed By: #### L 100.0100, L500.2500 ####[facility] [address] [place], [address] eGFR Normal >60 [facility] Comment on above: Result Comment: Canc elled via OM: Order cancelled - Patient discharged Performed By: #### L 100.0100, L500.2500 ####[facility] [address] [place], [address] GAP Normal 5-15 [facility] Comment on above: Result Comment: Canc elled via OM: Order cancelled - Patient discharged Performed By: #### L 100.0100, L500.2500 ####[facility] [address] [place], [address] GLU Normal 70-99 [facility] Comment on above: Result Comment: Canc elled via OM: Order cancelled - Patient discharged Performed By: #### L 100.0100, L500.2500 ####[facility] [address] [place], [address] Potassium Normal 3.3-5.1 [facility] Comment on above: Result Comment: Canc elled via OM: Order cancelled - Patient discharged Performed By: #### L 100.0100, L500.2500 ####[facility] [address] [place], [address] Basic Metabolic Profile (BMP) Normal 133-145 [facility] Comment on above: Result Comment: Canc elled via OM: Order cancelled - Patient discharged Performed By: #### L 100.0100, L500.2500 ####[facility] [address] [place], [address] BUN/CRE 30.2 RATIO High 10-20 [facility] Comment on above: Performed By: #### L 500.2500, L100.0100, L501.5200, L503.7505 ####[facility] [address] [place], [address] Calcium [Mass/Vol] 10.2 mg/dL Normal 7.6-11.0 [facility] Comment on above: Performed By: #### L 500.2500, L100.0100, L501.5200, L503.7505 ####[facility] [address] [place], [address] Chloride [Moles/Vol] 104 mmol/L Normal 98-108 [facility] Comment on above: Performed By: #### L 500.2500, L100.0100, L501.5200, L503.7505 ####[facility] [address] [place], [address] CO2 [Moles/Vol] 27.1 mmol/L Normal 21.0-32.0 [facility] Comment on above: Performed By: #### L 500.2500, L100.0100, L501.5200, L503.7505 ####[facility] [address] [place], [address] Creatinine [Mass/Vol] 1.16 mg/dL Normal 0.70-1.20 [facility] Comment on above: Performed By: #### L 500.2500, L100.0100, L501.5200, L503.7505 ####[facility] [address] [place], [address] ECRCL 38.24 ml/min Low 50-250 [facility] Comment on above: Performed By: #### L 500.2500, L100.0100, L501.5200, L503.7505 ####[facility] [address] [place], [address] GAP 10 Normal 5-15 [facility] Comment on above: Performed By: #### L 500.2500, L100.0100, L501.5200, L503.7505 ####[facility] [address] [place], [address] GFR/1.73 sq M.predicted among non-blacks MDRD (S/P/Bld) [Vol rate/Area] 47 mL/min/{1.73_m2} Low >60 [facility] Comment on above: Result Comment: mL/m in/1.73m2 CKD-EPI Creatinine Equation (2020) Performed By: #### L 500.2500, L100.0100, L501.5200, L503.7505 ####[facility] [address] [place], [address] Glucose [Mass/Vol] 211 mg/dL High 70-99 [facility] Comment on above: Performed By: #### L 500.2500, L100.0100, L501.5200, L503.7505 ####[facility] [address] [place], [address] Potassium [Moles/Vol] 4.1 mmol/L Normal 3.3-5.1 [facility] Comment on above: Performed By: #### L 500.2500, L100.0100, L501.5200, L503.7505 ####[facility] [address] [place], [address] Sodium [Moles/Vol] 141 mmol/L Normal 133-145 [facility] Comment on above: Performed By: #### L 500.2500, L100.0100, L501.5200, L503.7505 ####[facility] [address] [place], [address] Urea nitrogen [Mass/Vol] 35 mg/dL High 4-19 [facility] Comment on above: Performed By: #### L 500.2500, L100.0100, L501.5200, L503.7505 ####[facility] [address] [place], [address] Basophil percentageOrdered B y: Jg Bryan on 01-26-2025 Basophils/100 WBC (Bld) 0.1 % 0-1 [facility] CBC W/Diff, Automatedon 12-30 Absolute Neut Normal 2.0-7.7 [facility] Comment on above: Result Comment: Canc elled via OM: Order cancelled - Patient discharged Performed By: #### L 100.0100, L500.2500 ####[facility] [address] [place], [address] HCT Normal 37-47 [facility] Comment on above: Result Comment: Canc elled via OM: Order cancelled - Patient discharged Performed By: #### L 100.0100, L500.2500 ####[facility] [address] [place], [address] HGB Normal 12.0-15.0 [facility] Comment on above: Result Comment: Canc elled via OM: Order cancelled - Patient discharged Performed By: #### L 100.0100, L500.2500 ####[facility] [address] [place], [address] MCH Normal 27.0-32.0 [facility] Comment on above: Result Comment: Canc elled via OM: Order cancelled - Patient discharged Performed By: #### L 100.0100, L500.2500 ####[facility] [address] [place], [address] MCHC Normal 32-36 [facility] Comment on above: Result Comment: Canc elled via OM: Order cancelled - Patient discharged Performed By: #### L 100.0100, L500.2500 ####[facility] [address] [place], [address] MCV Normal 81-99 [facility] Comment on above: Result Comment: Canc elled via OM: Order cancelled - Patient discharged Performed By: #### L 100.0100, L500.2500 ####[facility] [address] [place], [address] NEUT% Normal 47-70 [facility] Comment on above: Result Comment: Canc elled via OM: Order cancelled - Patient discharged Performed By: #### L 100.0100, L500.2500 ####[facility] [address] [place], [address] PLT Normal 150-450 [facility] Comment on above: Result Comment: Canc elled via OM: Order cancelled - Patient discharged Performed By: #### L 100.0100, L500.2500 ####[facility] [address] [place], [address] RBC Normal 4.2-5.4 [facility] Comment on above: Result Comment: Canc elled via OM: Order cancelled - Patient discharged Performed By: #### L 100.0100, L500.2500 ####[facility] [address] [place], [address] RDW CV Normal 11.6-14.6 [facility] Comment on above: Result Comment: Canc elled via OM: Order cancelled - Patient discharged Performed By: #### L 100.0100, L500.2500 ####[facility] [address] [place], [address] RDW SD Normal 35.1-43.9 [facility] Comment on above: Result Comment: Canc elled via OM: Order cancelled - Patient discharged Performed By: #### L 100.0100, L500.2500 ####[facility] [address] [place], [address] WBC Normal 4.4-11.0 [facility] Comment on above: Result Comment: Canc elled via OM: Order cancelled - Patient discharged Performed By: #### L 100.0100, L500.2500 ####[facility] [address] [place], [address] Absolute Lymph 2.24 X10 3/uL Normal 0.83-4.51 [facility] Comment on above: Performed By: #### L 500.2500, L100.0100, L501.5200, L503.7505 ####[facility] [address] [place], [address] Absolute Neut 5.8 X10 3/uL Normal 2.0-7.7 [facility] Comment on above: Performed By: #### L 500.2500, L100.0100, L501.5200, L503.7505 ####[facility] [address] [place], [address] Basophils/100 WBC (Bld) 0.1 % Normal 0-1 [facility] Comment on above: Performed By: #### L 500.2500, L100.0100, L501.5200, L503.7505 ####[facility] [address] [place], [address] Eosinophils/100 WBC (Bld) 2.8 % Normal 0-5 [facility] Comment on above: Performed By: #### L 500.2500, L100.0100, L501.5200, L503.7505 ####[facility] [address] [place], [address] Erythrocyte distribution width (RBC) [Ratio] 15.9 % High 11.6-14.6 [facility] Comment on above: Performed By: #### L 500.2500, L100.0100, L501.5200, L503.7505 ####[facility] [address] [place], [address] Hematocrit (Bld) [Volume fraction] 37.9 % Normal 37-47 [facility] Comment on above: Performed By: #### L 500.2500, L100.0100, L501.5200, L503.7505 ####[facility] [address] [place], [address] Hemoglobin (Bld) [Mass/Vol] 11.8 g/dL Low 12.0-15.0 [facility] Comment on above: Performed By: #### L 500.2500, L100.0100, L501.5200, L503.7505 ####[facility] [address] [place], [address] IG% 0.300 Normal 0.0-0.9 [facility] Comment on above: Result Comment: IG% - Immature Granulocytes (promyelocytes, myelocytes andmetamyelocytes) > 1% indicates that a LEFT SHIFT is Present. Performed By: #### L 500.2500, L100.0100, L501.5200, L503.7505 ####[facility] [address] [place], [address] Lymphocytes/100 WBC (Bld) 25.1 % Normal 19-41 [facility] Comment on above: Performed By: #### L 500.2500, L100.0100, L501.5200, L503.7505 ####[facility] [address] [place], [address] MCH (RBC) [Entitic mass] 27.3 pg Normal 27.0-32.0 [facility] Comment on above: Performed By: #### L 500.2500, L100.0100, L501.5200, L503.7505 ####[facility] [address] [place], [address] MCHC (RBC) [Mass/Vol] 31.1 g/dL Low 32-36 [facility] Comment on above: Performed By: #### L 500.2500, L100.0100, L501.5200, L503.7505 ####[facility] [address] [place], [address] MCV (RBC) [Entitic vol] 87.5 fL Normal 81-99 [facility] Comment on above: Performed By: #### L 500.2500, L100.0100, L501.5200, L503.7505 ####[facility] [address] [place], [address] Monocytes/100 WBC (Bld) 6.7 % Normal 0-10 [facility] Comment on above: Performed By: #### L 500.2500, L100.0100, L501.5200, L503.7505 ####[facility] [address] [place], [address] Neutrophils/100 WBC (Bld) 65.0 % Normal 47-70 [facility] Comment on above: Performed By: #### L 500.2500, L100.0100, L501.5200, L503.7505 ####[facility] [address] [place], [address] Nucleated RBC (Bld) [#/Vol] 0 10*3/uL Normal 0-5 [facility] Comment on above: Performed By: #### L 500.2500, L100.0100, L501.5200, L503.7505 ####[facility] [address] [place], [address] Platelet mean volume (Bld) [Entitic vol] 10.8 fL Normal 6.2-12.0 [facility] Comment on above: Performed By: #### L 500.2500, L100.0100, L501.5200, L503.7505 ####[facility] [address] [place], [address] Platelets (Bld) [#/Vol] 247 10*3/uL Normal 150-450 [facility] Comment on above: Performed By: #### L 500.2500, L100.0100, L501.5200, L503.7505 ####[facility] [address] [place], [address] RBC (Bld) [#/Vol] 4.33 10*6/uL Normal 4.2-5.4 [facility] Comment on above: Performed By: #### L 500.2500, L100.0100, L501.5200, L503.7505 ####[facility] [address] [place], [address] RDW SD 51.0 fl High 35.1-43.9 [facility] Comment on above: Performed By: #### L 500.2500, L100.0100, L501.5200, L503.7505 ####[facility] [address] [place], [address] WBC (Bld) [#/Vol] 8.9 10*3/uL Normal 4.4-11.0 [facility] Comment on above: Performed By: #### L 500.2500, L100.0100, L501.5200, L503.7505 ####[facility] [address] [place], [address] Carbon dioxide, total [Moles /volume] in Central venous bloodOrdered By: Jg Bryan on 01-26-2025 CO2 [Moles/Vol] 27.1 mmol/L 21.0-32.0 [facility] Chest PA and Lateralon 01-26 Chest PA and Lateral Normal [facility] Chloride assayOrdered By: Matilde Bryan on 01-26-2025 Chloride [Moles/Vol] 104 mmol/L 98-108 [facility] Emergency Department Summary on 01-26-2025 Emergency Department Summary Normal [facility] Eosinophil percentageOrdered By: Jg Bryan on 01-26-2025 Eosinophils/100 WBC (Bld) 2.8 % 0-5 [facility] Erythrocyte distribution wid th ratioOrdered By: Jg Bryan on 01-26-2025 Erythrocyte distribution width (RBC) [Ratio] 15.9 % High 11.6-14.6 [facility] Erythrocyte distribution wid th standard deviationOrdered By: Jg Bryan on 01-26-2025 Erythrocyte distribution width (RBC) [Ratio] 51.0 fl High 35.1-43.9 [facility] Glomerular filtration rate ( GFR) estimation/1.73 sq m using serum, plasma, or whole bOrdered By: Jg Bryan on 01-26-2025 GFR/1.73 sq M.predicted among non-blacks MDRD (S/P/Bld) [Vol rate/Area] 47 mL/min/{1.73_m2} Low >60 [facility] Hematocrit Auto (Bld) [Volum e fraction]Ordered By: Jg Bryan on 01-26-2025 Hematocrit (Bld) [Volume fraction] 37.9 % 37-47 [facility] Hemoglobin measurementOrdere d By: Jg Bryan on 01-26-2025 Hemoglobin (Bld) [Mass/Vol] 11.8 g/dL Low 12.0-15.0 [facility] Immature granulocytes/100 WB C Auto (Bld)Ordered By: Jg Bryan on 01-26-2025 Immature granulocytes/100 WBC (Bld) 0.300 % 0.0-0.9 [facility] L503.7505on 01-26-2025 Natriuretic peptide B (Bld) [Mass/Vol] 3334 pg/mL High <=1800 [facility] Comment on above: Result Comment: Hear t Failure Unlikely: < 300 pg/mLHeart Failure Likely< 50 Years: > 450 pg/mL50-75 Years: > 900 pg/mL>75 Years: > 1800 pg/mL Performed By: #### L 500.2500, L100.0100, L501.5200, L503.7505 ####[facility] [address] [facility] [place], [place], [id number] MCV (mean corpuscular volume ) determinationOrdered By: Jg Bryan on 01-26-2025 MCV (RBC) [Entitic vol] 87.5 fL 81-99 [facility] Magnesiumon 01-26-2025 Magnesium [Mass/Vol] 2.7 mg/dL High 1.5-2.2 [facility] Comment on above: Performed By: #### L 500.2500, L100.0100, L501.5200, L503.7505 ####[facility] [address] [facility] [place], [place], [address] Magnesium measurement (mass/ volume)Ordered By: Jg Bryan on 01-26-2025 Magnesium (Unsp spec) [Mass/Vol] 2.7 mg/dL High 1.5-2.2 [facility] Mean corpuscular hemoglobin (MCH) determinationOrdered By: Jg Bryan on 01-26-2025 MCH (RBC) [Entitic mass] 27.3 pg 27.0-32.0 [facility] Monocyte percentageOrdered B y: Jg Bryan on 01-26-2025 Monocytes/100 WBC (Bld) 6.7 % 0-10 [facility] Natriuretic peptide.B prohor hayley N-Terminal [Mass/volume] in Serum or PlasmaOrdered By: Jg Bryan on 01-26-2025 Natriuretic peptide.B prohormone N-Terminal [Mass/Vol] 3334 pg/mL High <1800 [facility] Neutrophil percentageOrdered By: Jg Bryan on 01-26-2025 Neutrophils/100 WBC (Bld) 65.0 % 47-70 [facility] Platelet countOrdered By: Matilde Bryan on 01-26-2025 Platelets (Bld) [#/Vol] 247 10*3/uL 150-450 [facility] Potassium measurement (mass/ volume)Ordered By: Jg Bryan on 01-26-2025 Potassium (Unsp spec) [Mass/Vol] 4.1 mmol/L 3.3-5.1 [facility] RBC Auto (Bld) [#/Vol]Ordere d By: Jg Bryan on 01-26-2025 RBC (Bld) [#/Vol] 4.33 10*6/uL 4.2-5.4 [facility] Serum creatinine measurement (mass/volume)Ordered By: Jg Bryan on 01-26-2025 Creatinine [Mass/Vol] 1.16 mg/dL 0.70-1.20 [facility] Serum glucose measurement (m ass/volume)Ordered By: Jg Bryan on 01-26-2025 Glucose [Mass/Vol] 211 mg/dL High 70-99 [facility] Serum or plasma calcium melanie urement (mass/volume)Ordered By: Jg Bryan on 01-26-2025 Calcium [Mass/Vol] 10.2 mg/dL 7.6-11.0 [facility] Serum or plasma urea nitroge n measurement (mass/volume)Ordered By: Jg Bryan on 01-26-2025 Urea nitrogen [Mass/Vol] 35 mg/dL High - [facility] Sodium levelOrdered By: Cosme Bryan on 01-26-2025 Sodium [Moles/Vol] 141 mmol/L 133-145 [facility] White blood cell (WBC) count Ordered By: Jg Brayn on 01-26-2025 WBC (Bld) [#/Vol] 8.9 10*3/uL 4.4-11.0 [facility] Basic Metabolic Profile (BMP )on 01-25-2025 BUN Normal - [facility] Comment on above: Result Comment: Canc elled via OM: Order cancelled - Patient discharged Performed By: #### L 100.0100, L500.2500 ####[facility] [address] [facility] [address] BUN/CRE Normal 10-20 [facility] Comment on above: Result Comment: Canc elled via OM: Order cancelled - Patient discharged Performed By: #### L 100.0100, L500.2500 ####[facility] [address] [place], [address] Calcium Normal 7.6-11.0 [facility] Comment on above: Result Comment: Canc elled via OM: Order cancelled - Patient discharged Performed By: #### L 100.0100, L500.2500 ####[facility] [address] [place], [address] CL Normal 98-108 [facility] Comment on above: Result Comment: Canc elled via OM: Order cancelled - Patient discharged Performed By: #### L 100.0100, L500.2500 ####[facility] [address] [place], [address] CO2 Normal 21.0-32.0 [facility] Comment on above: Result Comment: Canc elled via OM: Order cancelled - Patient discharged Performed By: #### L 100.0100, L500.2500 ####[facility] [address] [place], [address] CREAT,SERUM Normal 0.70-1.20 [facility] Comment on above: Result Comment: Canc elled via OM: Order cancelled - Patient discharged Performed By: #### L 100.0100, L500.2500 ####[facility] [address] [place], [address] eGFR Normal >60 [facility] Comment on above: Result Comment: Canc elled via OM: Order cancelled - Patient discharged Performed By: #### L 100.0100, L500.2500 ####[facility] [address] [place], [address] GAP Normal 5-15 [facility] Comment on above: Result Comment: Canc elled via OM: Order cancelled - Patient discharged Performed By: #### L 100.0100, L500.2500 ####[facility] [address] [place], [address] GLU Normal 70-99 [facility] Comment on above: Result Comment: Canc elled via OM: Order cancelled - Patient discharged Performed By: #### L 100.0100, L500.2500 ####[facility] [address] [place], [address] Potassium Normal 3.3-5.1 [facility] Comment on above: Result Comment: Canc elled via OM: Order cancelled - Patient discharged Performed By: #### L 100.0100, L500.2500 ####[facility] [address] [place], [address] Basic Metabolic Profile (BMP) Normal 133-145 [facility] Comment on above: Result Comment: Canc elled via OM: Order cancelled - Patient discharged Performed By: #### L 100.0100, L500.2500 ####[facility] [address] [place], [address] CBC W/Diff, Automatedon 05-2 Absolute Neut Normal 2.0-7.7 [facility] Comment on above: Result Comment: Canc elled via OM: Order cancelled - Patient discharged Performed By: #### L 100.0100, L500.2500 ####[facility] [address] [place], [address] HCT Normal 37-47 [facility] Comment on above: Result Comment: Canc elled via OM: Order cancelled - Patient discharged Performed By: #### L 100.0100, L500.2500 ####[facility] [address] [place], [address] HGB Normal 12.0-15.0 [facility] Comment on above: Result Comment: Canc elled via OM: Order cancelled - Patient discharged Performed By: #### L 100.0100, L500.2500 ####[facility] [address] [place], [address] MCH Normal 27.0-32.0 [facility] Comment on above: Result Comment: Canc elled via OM: Order cancelled - Patient discharged Performed By: #### L 100.0100, L500.2500 ####[facility] [address] [place], [address] MCHC Normal 32-36 [facility] Comment on above: Result Comment: Canc elled via OM: Order cancelled - Patient discharged Performed By: #### L 100.0100, L500.2500 ####[facility] [address] [place], [address] MCV Normal 81-99 [facility] Comment on above: Result Comment: Canc elled via OM: Order cancelled - Patient discharged Performed By: #### L 100.0100, L500.2500 ####[facility] [address] [place], [address] NEUT% Normal 47-70 [facility] Comment on above: Result Comment: Canc elled via OM: Order cancelled - Patient discharged Performed By: #### L 100.0100, L500.2500 ####[facility] [address] [place], [address] PLT Normal 150-450 [facility] Comment on above: Result Comment: Canc elled via OM: Order cancelled - Patient discharged Performed By: #### L 100.0100, L500.2500 ####[facility] [address] [place], [address] RBC Normal 4.2-5.4 [facility] Comment on above: Result Comment: Canc elled via OM: Order cancelled - Patient discharged Performed By: #### L 100.0100, L500.2500 ####[facility] [address] [place], [address] RDW CV Normal 11.6-14.6 [facility] Comment on above: Result Comment: Canc elled via OM: Order cancelled - Patient discharged Performed By: #### L 100.0100, L500.2500 ####[facility] [address] [place], [address] RDW SD Normal 35.1-43.9 [facility] Comment on above: Result Comment: Canc elled via OM: Order cancelled - Patient discharged Performed By: #### L 100.0100, L500.2500 ####[facility] [address] [place], [address] WBC Normal 4.4-11.0 [facility] Comment on above: Result Comment: Canc elled via OM: Order cancelled - Patient discharged Performed By: #### L 100.0100, L500.2500 ####[facility] [address] [place], [address] Culture, Blood (WB)on 2024 CUB Blood cultures x2, from two different sites No growth in 5 days. Normal [facility] Comment on above: Performed By: #### M 200.1000 ####[facility] [address] [place], [address] Performed By: #### M 200.1000, L503.6005 ####[facility] [address] [place], [address] Performed By: #### L 500.4050, L300.4310, L100.0100, L300.3900, L501.4021, L503.6005, M200.1000 ####[facility] [address] [facility] [place], [address] Absolute lymphocyte countOrd ered By: Melba Hatrmann on 01-24-2025 Lymphocytes Auto (Unsp spec) [#/Vol] 2.19 10*3/uL 0.83-4.51 [facility] Anion gap in Serum or Plasma Ordered By: Melba Hartmann on 01-24-2025 Anion gap [Moles/Vol] 12 mmol/L 5-15 [facility] Automated lymphocyte count a s percentage of total leukocytesOrdered By: Melba Hartmann on 01-24-2025 Lymphocytes/100 WBC Auto (Unsp spec) 19.3 % 19-41 [facility] BUN/creatinine ratioOrdered By: Melba Hartmann on 01-24-2025 Urea nitrogen/Creatinine [Mass ratio] 35.2 mg/mg High 10-20 [facility] Basic Metabolic Profile (BMP )on 01-24-2025 BUN/CRE 35.2 RATIO High - [facility] Comment on above: Performed By: #### L 100.0100, L500.2500 ####[facility] [address] [facility] [place], [address] Calcium [Mass/Vol] 10.1 mg/dL Normal 7.6-11.0 [facility] Comment on above: Performed By: #### L 100.0100, L500.2500 ####[facility] [address] [place], [address] Chloride [Moles/Vol] 102 mmol/L Normal 98-108 [facility] Comment on above: Performed By: #### L 100.0100, L500.2500 ####[facility] [address] [place], [address] CO2 [Moles/Vol] 23.7 mmol/L Normal 21.0-32.0 [facility] Comment on above: Performed By: #### L 100.0100, L500.2500 ####[facility] [address] [place], [address] Creatinine [Mass/Vol] 1.31 mg/dL High 0.70-1.20 [facility] Comment on above: Performed By: #### L 100.0100, L500.2500 ####[facility] [address] [place], [address] ECRCL 33.41 ml/min Low 50-250 [facility] Comment on above: Performed By: #### L 100.0100, L500.2500 ####[facility] [address] [place], [address] GAP 12 Normal 5-15 [facility] Comment on above: Performed By: #### L 100.0100, L500.2500 ####[facility] [address] [place], [address] GFR/1.73 sq M.predicted among non-blacks MDRD (S/P/Bld) [Vol rate/Area] 41 mL/min/{1.73_m2} Low >60 [facility] Comment on above: Result Comment: mL/m in/1.73m2 CKD-EPI Creatinine Equation (2020) Performed By: #### L 100.0100, L500.2500 ####[facility] [address] [place], [address] Glucose [Mass/Vol] 133 mg/dL High 70-99 [facility] Comment on above: Performed By: #### L 100.0100, L500.2500 ####[facility] [address] [place], [address] Potassium [Moles/Vol] 3.5 mmol/L Normal 3.3-5.1 [facility] Comment on above: Performed By: #### L 100.0100, L500.2500 ####[facility] [address] [place], [address] Sodium [Moles/Vol] 138 mmol/L Normal 133-145 [facility] Comment on above: Performed By: #### L 100.0100, L500.2500 ####[facility] [address] [place], [address] Urea nitrogen [Mass/Vol] 46 mg/dL High 4-19 [facility] Comment on above: Performed By: #### L 100.0100, L500.2500 ####[facility] [address] [place], [address] Basophil percentageOrdered B y: Melba Hartmann on 01-24-2025 Basophils/100 WBC (Bld) 0.2 % 0-1 [facility] Bedside Glucoseon 01-24-2025 FINGERSTICK GLU 167 mg/dL High 74-106 [facility] Comment on above: Result Comment: KATARINA GEMENT OF PATIENT CARE PER NURSING PROTOCOL Performed By: #### L 501.080 ####[facility] [address] [place], [address] FINGERSTICK GLU 143 mg/dL High 74-106 [facility] Comment on above: Result Comment: KATARINA GEMENT OF PATIENT CARE PER NURSING PROTOCOL Performed By: #### L 501.080 ####[facility] [address] [place], [address] CBC W/Diff, Automatedon 05-2 -2024 Absolute Lymph 2.19 X10 3/uL Normal 0.83-4.51 [facility] Comment on above: Performed By: #### L 100.0100, L500.2500 ####[facility] [address] [place], [address] Absolute Neut 8.2 X10 3/uL High 2.0-7.7 [facility] Comment on above: Performed By: #### L 100.0100, L500.2500 ####[facility] [address] [place], [address] Basophils/100 WBC (Bld) 0.2 % Normal 0-1 [facility] Comment on above: Performed By: #### L 100.0100, L500.2500 ####[facility] [address] [place], [address] Eosinophils/100 WBC (Bld) 0.2 % Normal 0-5 [facility] Comment on above: Performed By: #### L 100.0100, L500.2500 ####[facility] [address] [place], [address] Erythrocyte distribution width (RBC) [Ratio] 15.8 % High 11.6-14.6 [facility] Comment on above: Performed By: #### L 100.0100, L500.2500 ####[facility] [address] [place], [address] Hematocrit (Bld) [Volume fraction] 40.7 % Normal 37-47 [facility] Comment on above: Performed By: #### L 100.0100, L500.2500 ####[facility] [address] [place], [address] Hemoglobin (Bld) [Mass/Vol] 12.7 g/dL Normal 12.0-15.0 [facility] Comment on above: Performed By: #### L 100.0100, L500.2500 ####[facility] [address] [place], [address] IG% 0.400 Normal 0.0-0.9 [facility] Comment on above: Result Comment: IG% - Immature Granulocytes (promyelocytes, myelocytes andmetamyelocytes) > 1% indicates that a LEFT SHIFT is Present. Performed By: #### L 100.0100, L500.2500 ####[facility] [address] [place], [address] Lymphocytes/100 WBC (Bld) 19.3 % Normal 19-41 [facility] Comment on above: Performed By: #### L 100.0100, L500.2500 ####[facility] [address] [place], [address] MCH (RBC) [Entitic mass] 27.4 pg Normal 27.0-32.0 [facility] Comment on above: Performed By: #### L 100.0100, L500.2500 ####[facility] [address] [place], [address] MCHC (RBC) [Mass/Vol] 31.2 g/dL Low 32-36 [facility] Comment on above: Performed By: #### L 100.0100, L500.2500 ####[facility] [address] [place], [address] MCV (RBC) [Entitic vol] 87.7 fL Normal 81-99 [facility] Comment on above: Performed By: #### L 100.0100, L500.2500 ####[facility] [address] [place], [address] Monocytes/100 WBC (Bld) 7.4 % Normal 0-10 [facility] Comment on above: Performed By: #### L 100.0100, L500.2500 ####[facility] [address] [place], [address] Neutrophils/100 WBC (Bld) 72.5 % High 47-70 [facility] Comment on above: Performed By: #### L 100.0100, L500.2500 ####[facility] [address] [place], [address] Nucleated RBC (Bld) [#/Vol] 0 10*3/uL Normal 0-5 [facility] Comment on above: Performed By: #### L 100.0100, L500.2500 ####[facility] [address] [place], [address] Platelet mean volume (Bld) [Entitic vol] 10.9 fL Normal 6.2-12.0 [facility] Comment on above: Performed By: #### L 100.0100, L500.2500 ####[facility] [address] [place], [address] Platelets (Bld) [#/Vol] 297 10*3/uL Normal 150-450 [facility] Comment on above: Performed By: #### L 100.0100, L500.2500 ####[facility] [address] [place], [address] RBC (Bld) [#/Vol] 4.64 10*6/uL Normal 4.2-5.4 [facility] Comment on above: Performed By: #### L 100.0100, L500.2500 ####[facility] [address] [place], [address] RDW SD 50.9 fl High 35.1-43.9 [facility] Comment on above: Performed By: #### L 100.0100, L500.2500 ####[facility] [address] [place], [address] WBC (Bld) [#/Vol] 11.3 10*3/uL High 4.4-11.0 [facility] Comment on above: Performed By: #### L 100.0100, L500.2500 ####[facility] [address] [place], [address] Carbon dioxide, total [Moles /volume] in Central venous bloodOrdered By: Melba Hartmann on 01-24-2025 CO2 [Moles/Vol] 23.7 mmol/L 21.0-32.0 [facility] Chloride assayOrdered By: Marifer Hartmann on 01-24-2025 Chloride [Moles/Vol] 102 mmol/L 98-108 [facility] Discharge Instructionon 12-30 Discharge Instruction Normal [facility] Electrocardiogram reportOrde red By: Marcelina Soto on 01-24-2025 EKG study [facility] Work Phone: [phone] Eosinophil percentageOrdered By: Melba Hartmann on 01-24-2025 Eosinophils/100 WBC (Bld) 0.2 % 0-5 [facility] Erythrocyte distribution wid th ratioOrdered By: Melba Hartmann on 01-24-2025 Erythrocyte distribution width (RBC) [Ratio] 15.8 % High 11.6-14.6 [facility] Erythrocyte distribution wid th standard deviationOrdered By: Melba Hartmann on 01-24-2025 Erythrocyte distribution width (RBC) [Ratio] 50.9 fl High 35.1-43.9 [facility] Glomerular filtration rate ( GFR) estimation/1.73 sq m using serum, plasma, or whole bOrdered By: Melba Hartmann on 01-24-2025 GFR/1.73 sq M.predicted among non-blacks MDRD (S/P/Bld) [Vol rate/Area] 41 mL/min/{1.73_m2} Low >60 [facility] Glucose measurement at bedsi deOrdered By: Melba Hartmann on 01-24-2025 Glucose [Mass/Vol] 167 mg/dL High 74-106 [facility] Hematocrit Auto (Bld) [Volum e fraction]Ordered By: Melba Hartmann on 01-24-2025 Hematocrit (Bld) [Volume fraction] 40.7 % 37-47 [facility] Hemoglobin measurementOrdere d By: Melba Hartmann on 01-24-2025 Hemoglobin (Bld) [Mass/Vol] 12.7 g/dL 12.0-15.0 [facility] Immature granulocytes/100 WB C Auto (Bld)Ordered By: Melba Hartmann on 01-24-2025 Immature granulocytes/100 WBC (Bld) 0.400 % 0.0-0.9 [facility] MCV (mean corpuscular volume ) determinationOrdered By: Melba Hartmann on 01-24-2025 MCV (RBC) [Entitic vol] 87.7 fL 81-99 [facility] Mean corpuscular hemoglobin (MCH) determinationOrdered By: Melba Hartmann on 01-24-2025 MCH (RBC) [Entitic mass] 27.4 pg 27.0-32.0 [facility] Monocyte percentageOrdered B y: Melba Hartmann on 01-24-2025 Monocytes/100 WBC (Bld) 7.4 % 0-10 [facility] Neutrophil percentageOrdered By: Melba Hartmann on 01-24-2025 Neutrophils/100 WBC (Bld) 72.5 % High 47-70 [facility] Platelet countOrdered By: Marifer Hartmann on 01-24-2025 Platelets (Bld) [#/Vol] 297 10*3/uL 150-450 [facility] Potassium measurement (mass/ volume)Ordered By: Melba Hartmann on 01-24-2025 Potassium (Unsp spec) [Mass/Vol] 3.5 mmol/L 3.3-5.1 [facility] RBC Auto (Bld) [#/Vol]Ordere d By: Melba Hartmann on 01-24-2025 RBC (Bld) [#/Vol] 4.64 10*6/uL 4.2-5.4 [facility] Serum creatinine measurement (mass/volume)Ordered By: Melba Hartmann on 01-24-2025 Creatinine [Mass/Vol] 1.31 mg/dL High 0.70-1.20 [facility] Serum glucose measurement (m ass/volume)Ordered By: Melba Hartmann on 01-24-2025 Glucose [Mass/Vol] 133 mg/dL High 70-99 [facility] Serum or plasma calcium melanie urement (mass/volume)Ordered By: Melbanereida Hartmann on 01-24-2025 Calcium [Mass/Vol] 10.1 mg/dL 7.6-11.0 [facility] Serum or plasma urea nitroge n measurement (mass/volume)Ordered By: Melba Hartmann on 01-24-2025 Urea nitrogen [Mass/Vol] 46 mg/dL High 4-19 [facility] Sodium levelOrdered By: Melba Hartmann on 01-24-2025 Sodium [Moles/Vol] 138 mmol/L 133-145 [facility] White blood cell (WBC) count Ordered By: Melbanereida Hartmann on 01-24-2025 WBC (Bld) [#/Vol] 11.3 10*3/uL High 4.4-11.0 [facility] Basic Metabolic Profile (BMP )on 01-23-2025 BUN/CRE 33.0 RATIO High 10-20 [facility] Comment on above: Performed By: #### L 100.0100, L500.2500 ####[facility] [address] [place], [address] Calcium [Mass/Vol] 10.8 mg/dL Normal 7.6-11.0 [facility] Comment on above: Performed By: #### L 100.0100, L500.2500 ####[facility] [address] [place], [address] Chloride [Moles/Vol] 98 mmol/L Normal 98-108 [facility] Comment on above: Performed By: #### L 100.0100, L500.2500 ####[facility] [address] [place], [address] CO2 [Moles/Vol] 25.4 mmol/L Normal 21.0-32.0 [facility] Comment on above: Performed By: #### L 100.0100, L500.2500 ####[facility] [address] [place], [address] Creatinine [Mass/Vol] 1.32 mg/dL High 0.70-1.20 [facility] Comment on above: Performed By: #### L 100.0100, L500.2500 ####[facility] [address] [place], [address] ECRCL 32.84 ml/min Low 50-250 [facility] Comment on above: Performed By: #### L 100.0100, L500.2500 ####[facility] [address] [place], [address] GAP 12 Normal 5-15 [facility] Comment on above: Performed By: #### L 100.0100, L500.2500 ####[facility] [address] [place], [address] GFR/1.73 sq M.predicted among non-blacks MDRD (S/P/Bld) [Vol rate/Area] 41 mL/min/{1.73_m2} Low >60 [facility] Comment on above: Result Comment: mL/m in/1.73m2 CKD-EPI Creatinine Equation (2020) Performed By: #### L 100.0100, L500.2500 ####[facility] [address] [place], [address] Glucose [Mass/Vol] 200 mg/dL High 70-99 [facility] Comment on above: Performed By: #### L 100.0100, L500.2500 ####[facility] [address] [place], [address] Potassium [Moles/Vol] 5.2 mmol/L High 3.3-5.1 [facility] Comment on above: Result Comment: Hemo lysis present, Results??could be affected.?? Performed By: #### L 100.0100, L500.2500 ####[facility] [address] [place], [address] Sodium [Moles/Vol] 135 mmol/L Normal 133-145 [facility] Comment on above: Performed By: #### L 100.0100, L500.2500 ####[facility] [address] [place], [address] Urea nitrogen [Mass/Vol] 44 mg/dL High 4-19 [facility] Comment on above: Performed By: #### L 100.0100, L500.2500 ####[facility] [address] [place], [address] Bedside Glucoseon 01-23-2025 FINGERSTICK GLU 294 mg/dL High 74-106 [facility] Comment on above: Result Comment: KATARINA GEMENT OF PATIENT CARE PER NURSING PROTOCOL Performed By: #### L 501.080 ####[facility] [address] [place], [address] FINGERSTICK GLU 314 mg/dL High 74-106 [facility] Comment on above: Result Comment: KATARINA GEMENT OF PATIENT CARE PER NURSING PROTOCOL Performed By: #### L 501.080 ####[facility] [address] [place], [address] FINGERSTICK GLU 291 mg/dL High 74-106 [facility] Comment on above: Result Comment: KATARINA GEMENT OF PATIENT CARE PER NURSING PROTOCOL Performed By: #### L 501.080 ####[facility] [address] [place], [address] FINGERSTICK GLU 214 mg/dL High 74-106 [facility] Comment on above: Result Comment: KATARINA GEMENT OF PATIENT CARE PER NURSING PROTOCOL Performed By: #### L 501.080 ####[facility] [address] [place], [address] CBC W/Diff, Automatedon 05- Absolute Lymph 0.74 X10 3/uL Low 0.83-4.51 [facility] Comment on above: Performed By: #### L 100.0100, L500.2500 ####[facility] [address] [place], [address] Absolute Neut 10.9 X10 3/uL High 2.0-7.7 [facility] Comment on above: Performed By: #### L 100.0100, L500.2500 ####[facility] [address] [place], [address] Basophils/100 WBC (Bld) 0.1 % Normal 0-1 [facility] Comment on above: Performed By: #### L 100.0100, L500.2500 ####[facility] [address] [place], [address] Eosinophils/100 WBC (Bld) 0.0 % Normal 0-5 [facility] Comment on above: Performed By: #### L 100.0100, L500.2500 ####[facility] [address] [place], [address] Erythrocyte distribution width (RBC) [Ratio] 15.8 % High 11.6-14.6 [facility] Comment on above: Performed By: #### L 100.0100, L500.2500 ####[facility] [address] [place], [address] Hematocrit (Bld) [Volume fraction] 41.8 % Normal 37-47 [facility] Comment on above: Performed By: #### L 100.0100, L500.2500 ####[facility] [address] [place], [address] Hemoglobin (Bld) [Mass/Vol] 13.1 g/dL Normal 12.0-15.0 [facility] Comment on above: Performed By: #### L 100.0100, L500.2500 ####[facility] [address] [place], [address] IG% 0.200 Normal 0.0-0.9 [facility] Comment on above: Result Comment: IG% - Immature Granulocytes (promyelocytes, myelocytes andmetamyelocytes) > 1% indicates that a LEFT SHIFT is Present. Performed By: #### L 100.0100, L500.2500 ####[facility] [address] [place], [address] Lymphocytes/100 WBC (Bld) 6.2 % Low 19-41 [facility] Comment on above: Performed By: #### L 100.0100, L500.2500 ####[facility] [address] [place], [address] MCH (RBC) [Entitic mass] 27.3 pg Normal 27.0-32.0 [facility] Comment on above: Performed By: #### L 100.0100, L500.2500 ####[facility] [address] [place], [address] MCHC (RBC) [Mass/Vol] 31.3 g/dL Low 32-36 [facility] Comment on above: Performed By: #### L 100.0100, L500.2500 ####[facility] [address] [place], [address] MCV (RBC) [Entitic vol] 87.1 fL Normal 81-99 [facility] Comment on above: Performed By: #### L 100.0100, L500.2500 ####[facility] [address] [place], [address] Monocytes/100 WBC (Bld) 2.7 % Normal 0-10 [facility] Comment on above: Performed By: #### L 100.0100, L500.2500 ####[facility] [address] [place], [address] Neutrophils/100 WBC (Bld) 90.8 % High 47-70 [facility] Comment on above: Performed By: #### L 100.0100, L500.2500 ####[facility] [address] [place], [address] Nucleated RBC (Bld) [#/Vol] 0 10*3/uL Normal 0-5 [facility] Comment on above: Performed By: #### L 100.0100, L500.2500 ####[facility] [address] [place], [address] Platelet mean volume (Bld) [Entitic vol] 11.6 fL Normal 6.2-12.0 [facility] Comment on above: Performed By: #### L 100.0100, L500.2500 ####[facility] [address] [place], [address] Platelets (Bld) [#/Vol] 322 10*3/uL Normal 150-450 [facility] Comment on above: Performed By: #### L 100.0100, L500.2500 ####[facility] [address] [place], [address] RBC (Bld) [#/Vol] 4.80 10*6/uL Normal 4.2-5.4 [facility] Comment on above: Performed By: #### L 100.0100, L500.2500 ####[facility] [address] [place], [address] RDW SD 50.2 fl High 35.1-43.9 [facility] Comment on above: Performed By: #### L 100.0100, L500.2500 ####[facility] [address] [place], [address] WBC (Bld) [#/Vol] 12.0 10*3/uL High 4.4-11.0 [facility] Comment on above: Performed By: #### L 100.0100, L500.2500 ####[facility] [address] [place], [address] Basic Metabolic Profile (BMP )on 01-22-2025 BUN/CRE 29.2 RATIO High 10-20 [facility] Comment on above: Performed By: #### L 500.2500, L100.0100 ####[facility] [address] [place], [address] Calcium [Mass/Vol] 10.2 mg/dL Normal 7.6-11.0 [facility] Comment on above: Performed By: #### L 500.2500, L100.0100 ####[facility] [address] [place], [address] Chloride [Moles/Vol] 99 mmol/L Normal 98-108 [facility] Comment on above: Performed By: #### L 500.2500, L100.0100 ####[facility] [address] [place], [address] CO2 [Moles/Vol] 27.0 mmol/L Normal 21.0-32.0 [facility] Comment on above: Performed By: #### L 500.2500, L100.0100 ####[facility] [address] [place], [address] Creatinine [Mass/Vol] 1.07 mg/dL Normal 0.70-1.20 [facility] Comment on above: Performed By: #### L 500.2500, L100.0100 ####[facility] [address] [place], [address] ECRCL 40.54 ml/min Low 50-250 [facility] Comment on above: Performed By: #### L 500.2500, L100.0100 ####[facility] [address] [place], [address] GAP 10 Normal 5-15 [facility] Comment on above: Performed By: #### L 500.2500, L100.0100 ####[facility] [address] [place], [address] GFR/1.73 sq M.predicted among non-blacks MDRD (S/P/Bld) [Vol rate/Area] 52 mL/min/{1.73_m2} Low >60 [facility] Comment on above: Result Comment: mL/m in/1.73m2 CKD-EPI Creatinine Equation (2020) Performed By: #### L 500.2500, L100.0100 ####[facility] [address] [place], [address] Glucose [Mass/Vol] 160 mg/dL High 70-99 [facility] Comment on above: Performed By: #### L 500.2500, L100.0100 ####[facility] [address] [place], [address] Potassium [Moles/Vol] 4.8 mmol/L Normal 3.3-5.1 [facility] Comment on above: Performed By: #### L 500.2500, L100.0100 ####[facility] [address] [place], [address] Sodium [Moles/Vol] 136 mmol/L Normal 133-145 [facility] Comment on above: Performed By: #### L 500.2500, L100.0100 ####[facility] [address] [place], [address] Urea nitrogen [Mass/Vol] 31 mg/dL High 4-19 [facility] Comment on above: Performed By: #### L 500.2500, L100.0100 ####[facility] [address] [place], [address] Bedside Glucoseon 01-22-2025 FINGERSTICK GLU 310 mg/dL High 74-106 [facility] Comment on above: Result Comment: KATARINA GARY OF PATIENT CARE PER NURSING PROTOCOL Performed By: #### L 501.080 ####[facility] [address] [place], [address] FINGERSTICK GLU 269 mg/dL High 74-106 [facility] Comment on above: Result Comment: KATARINA GEMENT OF PATIENT CARE PER NURSING PROTOCOL Performed By: #### L 501.080 ####[facility] [address] [place], [address] FINGERSTICK GLU 232 mg/dL High 74-106 [facility] Comment on above: Result Comment: KATARINA GEMENT OF PATIENT CARE PER NURSING PROTOCOL Performed By: #### L 501.080 ####[facility] [address] [place], [address] FINGERSTICK GLU 183 mg/dL High 74-106 [facility] Comment on above: Result Comment: KATARINA GEMENT OF PATIENT CARE PER NURSING PROTOCOL Performed By: #### L 501.080 ####[facility] [address] [place], [address] CBC W/Diff, Automatedon 05-2 5-2025 Absolute Lymph 0.73 X10 3/uL Low 0.83-4.51 [facility] Comment on above: Performed By: #### L 500.2500, L100.0100 ####[facility] [address] [place], [address] Absolute Neut 11.7 X10 3/uL High 2.0-7.7 [facility] Comment on above: Performed By: #### L 500.2500, L100.0100 ####[facility] [address] [place], [address] Basophils/100 WBC (Bld) 0.0 % Normal 0-1 [facility] Comment on above: Performed By: #### L 500.2500, L100.0100 ####[facility] [address] [place], [address] Eosinophils/100 WBC (Bld) 0.0 % Normal 0-5 [facility] Comment on above: Performed By: #### L 500.2500, L100.0100 ####[facility] [address] [place], [address] Erythrocyte distribution width (RBC) [Ratio] 15.9 % High 11.6-14.6 [facility] Comment on above: Performed By: #### L 500.2500, L100.0100 ####[facility] [address] [place], [address] Hematocrit (Bld) [Volume fraction] 35.6 % Low 37-47 [facility] Comment on above: Performed By: #### L 500.2500, L100.0100 ####[facility] [address] [place], [address] Hemoglobin (Bld) [Mass/Vol] 11.1 g/dL Low 12.0-15.0 [facility] Comment on above: Performed By: #### L 500.2500, L100.0100 ####[facility] [address] [place], [address] IG% 0.500 Normal 0.0-0.9 [facility] Comment on above: Result Comment: IG% - Immature Granulocytes (promyelocytes, myelocytes andmetamyelocytes) > 1% indicates that a LEFT SHIFT is Present. Performed By: #### L 500.2500, L100.0100 ####[facility] [address] [place], [address] Lymphocytes/100 WBC (Bld) 5.7 % Low 19-41 [facility] Comment on above: Performed By: #### L 500.2500, L100.0100 ####[facility] [address] [place], [address] MCH (RBC) [Entitic mass] 27.3 pg Normal 27.0-32.0 [facility] Comment on above: Performed By: #### L 500.2500, L100.0100 ####[facility] [address] [place], [address] MCHC (RBC) [Mass/Vol] 31.2 g/dL Low 32-36 [facility] Comment on above: Performed By: #### L 500.2500, L100.0100 ####[facility] [address] [place], [address] MCV (RBC) [Entitic vol] 87.7 fL Normal 81-99 [facility] Comment on above: Performed By: #### L 500.2500, L100.0100 ####[facility] [address] [place], [address] Monocytes/100 WBC (Bld) 2.4 % Normal 0-10 [facility] Comment on above: Performed By: #### L 500.2500, L100.0100 ####[facility] [address] [place], [address] Neutrophils/100 WBC (Bld) 91.4 % High 47-70 [facility] Comment on above: Performed By: #### L 500.2500, L100.0100 ####[facility] [address] [place], [address] Nucleated RBC (Bld) [#/Vol] 0 10*3/uL Normal 0-5 [facility] Comment on above: Performed By: #### L 500.2500, L100.0100 ####[facility] [address] [place], [address] Platelet mean volume (Bld) [Entitic vol] 11.1 fL Normal 6.2-12.0 [facility] Comment on above: Performed By: #### L 500.2500, L100.0100 ####[facility] [address] [place], [address] Platelets (Bld) [#/Vol] 281 10*3/uL Normal 150-450 [facility] Comment on above: Performed By: #### L 500.2500, L100.0100 ####[facility] [address] [place], [address] RBC (Bld) [#/Vol] 4.06 10*6/uL Low 4.2-5.4 [facility] Comment on above: Performed By: #### L 500.2500, L100.0100 ####[facility] [address] [place], [address] RDW SD 51.3 fl High 35.1-43.9 [facility] Comment on above: Performed By: #### L 500.2500, L100.0100 ####[facility] [address] [place], [address] WBC (Bld) [#/Vol] 12.8 10*3/uL High 4.4-11.0 [facility] Comment on above: Performed By: #### L 500.2500, L100.0100 ####[facility] [address] [place], [address] Urine Cultureon 01-22-2025 URC Normal [facility] Comment on above: Performed By: #### M 100.2200 ####[facility] [address] [place], [address] Basic Metabolic Profile (BMP )on 01-21-2025 BUN/CRE 19.6 RATIO Normal 10-20 [facility] Comment on above: Performed By: #### L 503.7505, L500.2500 ####[facility] [address] [place], [address] Calcium [Mass/Vol] 9.8 mg/dL Normal 7.6-11.0 [facility] Comment on above: Performed By: #### L 503.7505, L500.2500 ####[facility] [address] [place], [address] Chloride [Moles/Vol] 99 mmol/L Normal 98-108 [facility] Comment on above: Performed By: #### L 503.7505, L500.2500 ####[facility] [address] [place], [address] CO2 [Moles/Vol] 24.3 mmol/L Normal 21.0-32.0 [facility] Comment on above: Performed By: #### L 503.7505, L500.2500 ####[facility] [address] [place], [address] Creatinine [Mass/Vol] 1.19 mg/dL Normal 0.70-1.20 [facility] Comment on above: Performed By: #### L 503.7505, L500.2500 ####[facility] [address] [place], [address] ECRCL 36.45 ml/min Low 50-250 [facility] Comment on above: Performed By: #### L 503.7505, L500.2500 ####[facility] [address] [place], [address] GAP 14 Normal 5-15 [facility] Comment on above: Performed By: #### L 503.7505, L500.2500 ####[facility] [address] [place], [address] GFR/1.73 sq M.predicted among non-blacks MDRD (S/P/Bld) [Vol rate/Area] 46 mL/min/{1.73_m2} Low >60 [facility] Comment on above: Result Comment: mL/m in/1.73m2 CKD-EPI Creatinine Equation (2020) Performed By: #### L 503.7505, L500.2500 ####[facility] [address] [place], [address] Glucose [Mass/Vol] 208 mg/dL High 70-99 [facility] Comment on above: Performed By: #### L 503.7505, L500.2500 ####[facility] [address] [place], [address] Potassium [Moles/Vol] 4.0 mmol/L Normal 3.3-5.1 [facility] Comment on above: Performed By: #### L 503.7505, L500.2500 ####[facility] [address] [place], [address] Sodium [Moles/Vol] 138 mmol/L Normal 133-145 [facility] Comment on above: Performed By: #### L 503.7505, L500.2500 ####[facility] [address] [place], [address] Urea nitrogen [Mass/Vol] 23 mg/dL High 4-19 [facility] Comment on above: Performed By: #### L 503.7505, L500.2500 ####[facility] [address] [place], [address] Bedside Glucoseon 01-21-2025 FINGERSTICK GLU 271 mg/dL High 74-106 [facility] Comment on above: Result Comment: KATARINA GEMENT OF PATIENT CARE PER NURSING PROTOCOL Performed By: #### L 501.080 ####[facility] [address] [place], [address] FINGERSTICK GLU 254 mg/dL High 74-106 [facility] Comment on above: Result Comment: KATARINA GEMENT OF PATIENT CARE PER NURSING PROTOCOL Performed By: #### L 501.080 ####[facility] [address] [place], [address] FINGERSTICK GLU 323 mg/dL High 74-106 [facility] Comment on above: Result Comment: KATARINA GEMENT OF PATIENT CARE PER NURSING PROTOCOL Performed By: #### L 501.080 ####[facility] [address] [place], [address] FINGERSTICK GLU 202 mg/dL High 74-106 [facility] Comment on above: Result Comment: KATARINA GARY OF PATIENT CARE PER NURSING PROTOCOL Performed By: #### L 501.080 ####[facility] [address] [place], [address] CBC W/Diff, Automatedon 05-2 -2024 Absolute Lymph 0.79 X10 3/uL Low 0.83-4.51 [facility] Comment on above: Performed By: #### L 100.0100 ####[facility] [address] [place], [address] Absolute Neut 9.1 X10 3/uL High 2.0-7.7 [facility] Comment on above: Performed By: #### L 100.0100 ####[facility] [address] [place], [address] Basophils/100 WBC (Bld) 0.0 % Normal 0-1 [facility] Comment on above: Performed By: #### L 100.0100 ####[facility] [address] [place], [address] Eosinophils/100 WBC (Bld) 0.0 % Normal 0-5 [facility] Comment on above: Performed By: #### L 100.0100 ####[facility] [address] [place], [address] Erythrocyte distribution width (RBC) [Ratio] 16.0 % High 11.6-14.6 [facility] Comment on above: Performed By: #### L 100.0100 ####[facility] [address] [place], [address] Hematocrit (Bld) [Volume fraction] 35.0 % Low 37-47 [facility] Comment on above: Performed By: #### L 100.0100 ####[facility] [address] [place], [address] Hemoglobin (Bld) [Mass/Vol] 10.8 g/dL Low 12.0-15.0 [facility] Comment on above: Performed By: #### L 100.0100 ####[facility] [address] [place], [address] IG% 0.400 Normal 0.0-0.9 [facility] Comment on above: Result Comment: IG% - Immature Granulocytes (promyelocytes, myelocytes andmetamyelocytes) > 1% indicates that a LEFT SHIFT is Present. Performed By: #### L 100.0100 ####[facility] [address] [place], [address] Lymphocytes/100 WBC (Bld) 7.7 % Low 19-41 [facility] Comment on above: Performed By: #### L 100.0100 ####[facility] [address] [place], [address] MCH (RBC) [Entitic mass] 27.4 pg Normal 27.0-32.0 [facility] Comment on above: Performed By: #### L 100.0100 ####[facility] [address] [place], [address] MCHC (RBC) [Mass/Vol] 30.9 g/dL Low 32-36 [facility] Comment on above: Performed By: #### L 100.0100 ####[facility] [address] [place], [address] MCV (RBC) [Entitic vol] 88.8 fL Normal 81-99 [facility] Comment on above: Performed By: #### L 100.0100 ####[facility] [address] [place], [address] Monocytes/100 WBC (Bld) 3.5 % Normal 0-10 [facility] Comment on above: Performed By: #### L 100.0100 ####[facility] [address] [place], [address] Neutrophils/100 WBC (Bld) 88.4 % High 47-70 [facility] Comment on above: Performed By: #### L 100.0100 ####[facility] [address] [place], [address] Nucleated RBC (Bld) [#/Vol] 0 10*3/uL Normal 0-5 [facility] Comment on above: Performed By: #### L 100.0100 ####[facility] [address] [place], [address] Platelet mean volume (Bld) [Entitic vol] 11.0 fL Normal 6.2-12.0 [facility] Comment on above: Performed By: #### L 100.0100 ####[facility] [address] [place], [address] Platelets (Bld) [#/Vol] 245 10*3/uL Normal 150-450 [facility] Comment on above: Performed By: #### L 100.0100 ####[facility] [address] [place], [address] RBC (Bld) [#/Vol] 3.94 10*6/uL Low 4.2-5.4 [facility] Comment on above: Performed By: #### L 100.0100 ####[facility] [address] [place], [address] RDW SD 51.8 fl High 35.1-43.9 [facility] Comment on above: Performed By: #### L 100.0100 ####[facility] [address] [place], [address] WBC (Bld) [#/Vol] 10.3 10*3/uL Normal 4.4-11.0 [facility] Comment on above: Performed By: #### L 100.0100 ####[facility] [address] [place], [address] Chest 1 View (Portable)on Chest 1 View (Portable) Normal [facility] L503.7505on 01-21-2025 Natriuretic peptide B (Bld) [Mass/Vol] 17162 pg/mL High <=1800 [facility] Comment on above: Result Comment: Hear t Failure Unlikely: < 300 pg/mLHeart Failure Likely< 50 Years: > 450 pg/mL50-75 Years: > 900 pg/mL>75 Years: > 1800 pg/mL Performed By: #### L 503.7505, L500.2500 ####[facility] [address] [place], [address] Natriuretic peptide.B prohor hayley N-Terminal [Mass/volume] in Serum or PlasmaOrdered By: Sandeep Marie on 01-21-2025 Natriuretic peptide.B prohormone N-Terminal [Mass/Vol] 13055 pg/mL High <1800 [facility] 12 Lead EKGon 01-20-2025 12 Lead EKG Normal [facility] Activated partial thrombopla stin time (aPTT) in platelet poor plasma by coagulation aOrdered By: Jeevan Yoder on 01-20-2025 aPTT Coag (PPP) [Time] 26.9 s 24.1-36.2 [facility] Assessment of wrist artery p atency prior to arterial punctureOrdered By: Lucio Borden on 01-20-2025 Arterial patency Wrist artery --pre arterial puncture Positive [facility] Bedside Glucoseon 01-20-2025 FINGERSTICK GLU 265 mg/dL High 74-106 [facility] Comment on above: Result Comment: KATARINA GEMENT OF PATIENT CARE PER NURSING PROTOCOL Performed By: #### L 501.080 ####[facility] [address] [place], [address] FINGERSTICK GLU 389 mg/dL High 74-106 [facility] Comment on above: Result Comment: KATARINA GEMENT OF PATIENT CARE PER NURSING PROTOCOL Performed By: #### L 501.080 ####[facility] [address] [place], [address] FINGERSTICK GLU 361 mg/dL High 74-106 [facility] Comment on above: Result Comment: KATARINA GEMENT OF PATIENT CARE PER NURSING PROTOCOL Performed By: #### L 501.080 ####[facility] [address] [place], [address] FINGERSTICK GLU 338 mg/dL High 74-106 [facility] Comment on above: Result Comment: KATARINA GEMENT OF PATIENT CARE PER NURSING PROTOCOL Performed By: #### L 501.080 ####[facility] [address] [place], [address] Bilirubin Test strip Ql (U)O rdered By: Jeevan Yoder on 01-20-2025 Bilirubin Ql (U) Negative Negative [facility] Bilirubin, totalOrdered By: Jeevan Yoder on 01-20-2025 Bilirubin [Mass/Vol] 0.26 mg/dL 0.00-1.30 [facility] Blood Gases by [facility] 025 BARON TEST Positive Normal [facility] Comment on above: Performed By: #### L 9000.0800 ####[facility] [address] [place], [address] Base excess Calc (Bld) [Moles/Vol] 10 mmol/L High -2 to +2 [facility] Comment on above: Performed By: #### L 9000.0800 ####[facility] [address] [place], [address] Blood Gas Type ART Normal [facility] Comment on above: Performed By: #### L 9000.0800 ####[facility] [address] [place], [address] CO2 [Moles/Vol] 37 mmol/L Normal [facility] Comment on above: Performed By: #### L 9000.0800 ####[facility] [address] [place], [address] FI02 30.0 Normal [facility] Comment on above: Performed By: #### L 8999.0800 ####[facility] [address] [place], [address] HCO3 (Bld) [Moles/Vol] 35.5 mmol/L High 22-26 [facility] Comment on above: Performed By: #### L 8999.08 ####[facility] [address] [place], [address] Normal [facility] Comment on above: Performed By: #### L 8999.08 ####[facility] [address] [place], [address] O2 Delivery Dev BiPAP Normal [facility] Comment on above: Performed By: #### L 8999.08 ####[facility] [address] [place], [address] pCO2 59.4 mmHg High 35-45 [facility] Comment on above: Performed By: #### L 8999.08 ####[facility] [address] [place], [address] PEEP 8 Normal [facility] Comment on above: Performed By: #### L 8999.08 ####[facility] [address] [place], [address] pH (Bld) 7.38 [pH] Normal 7.35-7.45 [facility] Comment on above: Performed By: #### L 8999.08 ####[facility] [address] [place], [address] PO2 21 mmHG Invalid Interpretation Code 75-100 [facility] Comment on above: Performed By: #### L 8999.0800 ####[facility] [address] [place], [address] Read Back By Yes Normal [facility] Comment on above: Performed By: #### L 9000.0800 ####[facility] [address] [place], [address] Results To tereletsky Normal [facility] Comment on above: Performed By: #### L 9000.0800 ####[facility] [address] [place], [address] RR 14 Normal [facility] Comment on above: Performed By: #### L 9000.0800 ####[facility] [address] [place], [address] SITE R Radial Normal [facility] Comment on above: Performed By: #### L 9000.0800 ####[facility] [address] [place], [address] SO2 32 Low 95-99 [facility] Comment on above: Performed By: #### L 9000.0800 ####[facility] [address] [place], [address] Time Given 16:55:40 [facility] Comment on above: Performed By: #### L 9000.0800 ####[facility] [address] [place], [address] Vt 500.0 mL Normal [facility] Comment on above: Performed By: #### L 9000.0800 ####[facility] [address] [place], [address] BARON TEST Positive Normal [facility] Comment on above: Performed By: #### L 9000.0800 ####[facility] [address] [place], [address] Base excess Calc (Bld) [Moles/Vol] 5 mmol/L High -2 to +2 [facility] Comment on above: Performed By: #### L 9000.0800 ####[facility] [address] [place], [address] Blood Gas Type ART Normal [facility] Comment on above: Performed By: #### L 9000.0800 ####[facility] [address] [place], [address] CO2 [Moles/Vol] 33 mmol/L Normal [facility] Comment on above: Performed By: #### L 9000.0800 ####[facility] [address] [place], [address] FI02 30.0 Normal [facility] Comment on above: Performed By: #### L 9000.0800 ####[facility] [address] [place], [address] HCO3 (Bld) [Moles/Vol] 30.8 mmol/L High 22-26 [facility] Comment on above: Performed By: #### L 9000.0800 ####[facility] [address] [place], [address] Mode Not entered Normal [facility] Comment on above: Performed By: #### L 9000.0800 ####[facility] [address] [place], [address] O2 Delivery Dev BiPAP Normal [facility] Comment on above: Performed By: #### L 9000.0800 ####[facility] [address] [place], [address] pCO2 56.2 mmHg High 35-45 [facility] Comment on above: Performed By: #### L 9000.0800 ####[facility] [address] [place], [address] PEEP 8 Normal [facility] Comment on above: Performed By: #### L 9000.0800 ####[facility] [address] [place], [address] pH (Bld) 7.35 [pH] Normal 7.35-7.45 [facility] Comment on above: Performed By: #### L 9000.0800 ####[facility] [address] [place], [address] PO2 37 mmHG Invalid Interpretation Code 75-100 [facility] Comment on above: Performed By: #### L 9000.0800 ####[facility] [address] [place], [address] Read Back By Yes [facility] Comment on above: Performed By: #### L 9000.0800 ####[facility] [address] [place], [address] RR 14 Normal [facility] Comment on above: Performed By: #### L 9000.0800 ####[facility] [address] [place], [address] SITE R Radial Normal [facility] Comment on above: Performed By: #### L 9000.0800 ####[facility] [address] [place], [address] SO2 66 Low 95-99 [facility] Comment on above: Performed By: #### L 9000.0800 ####[facility] [address] [place], [address] Vt 500.0 mL Normal [facility] Comment on above: Performed By: #### L 9000.0800 ####[facility] [address] [place], [address] BARON TEST Positive Normal [facility] Comment on above: Performed By: #### L 9000.0800 ####[facility] [address] [place], [address] Base excess Calc (Bld) [Moles/Vol] 5 mmol/L High -2 to +2 [facility] Comment on above: Performed By: #### L 9000.0800 ####[facility] [address] [place], [address] Blood Gas Type ART Normal [facility] Comment on above: Performed By: #### L 0.0800 ####[facility] [address] [place], [address] CO2 [Moles/Vol] 34 mmol/L Normal [facility] Comment on above: Performed By: #### L 9000.0800 ####[facility] [address] [place], [address] Comment Normal [facility] Comment on above: Result Comment: AVAP S 500vt 14rr 100% +8 maxP=26 minP=18 Performed By: #### L 9000.0800 ####[facility] [address] [place], [address] FI02 100.0 Normal [facility] Comment on above: Performed By: #### L 9000.0800 ####[facility] [address] [place], [address] HCO3 (Bld) [Moles/Vol] 31.6 mmol/L High 22-26 [facility] Comment on above: Performed By: #### L 9000.0800 ####[facility] [address] [place], [address] Mode Not entered Normal [facility] Comment on above: Performed By: #### L 9000.0800 ####[facility] [address] [place], [address] O2 Delivery Dev BiPAP Normal [facility] Comment on above: Performed By: #### L 9000.0800 ####[facility] [facility] [address] [place], [address] pCO2 63.0 mmHg High 35-45 [facility] Comment on above: Performed By: #### L 9000.0800 ####[facility] [address] [place], [address] pH (Bld) 7.31 [pH] Low 7.35-7.45 [facility] Comment on above: Performed By: #### L 9000.0800 ####[facility] [address] [place], [address] PO2 83 mmHG Normal 75-100 [facility] Comment on above: Performed By: #### L 9000.0800 ####[facility] [address] [place], [address] SITE R Radial Normal [facility] Comment on above: Performed By: #### L 9000.0800 ####[facility] [address] [place], [address] SO2 95 Normal 95-99 [facility] Comment on above: Performed By: #### L 9000.0800 ####[facility] [address] [place], [address] Blood base excess determinat ionOrdered By: Lucio Borden on 01-20-2025 Base excess Calc (BldV) [Moles/Vol] 10 mmol/L High -2-2 [facility] Blood bicarbonate measuremen tOrdered By: Lucio Borden on 01-20-2025 HCO3 (Bld) [Moles/Vol] 35.5 mmol/L High 22-26 [facility] Blood cultureOrdered By: Mikey Marie on 01-20-2025 Bacteria identified Cx Nom (Bld) No growth in 5 days. [facility] Blood cultureOrdered By: Maeve Yoder on 01-20-2025 Bacteria identified Cx Nom (Bld) No growth in 5 days. [facility] Bacteria identified Cx Nom (Bld) No growth in 5 days. [facility] CBC W/Diff, Automatedon 05-2 -2024 Absolute Lymph 4.62 X10 3/uL High 0.83-4.51 [facility] Comment on above: Performed By: #### L 500.4050, L300.4310, L100.0100, L300.3900, L501.4021, L503.6005, M200.1000 ####[facility] [address] [place], [address] Absolute Neut 8.4 X10 3/uL High 2.0-7.7 [facility] Comment on above: Performed By: #### L 500.4050, L300.4310, L100.0100, L300.3900, L501.4021, L503.6005, M200.1000 ####[facility] [address] [place], [address] Basophils/100 WBC (Bld) 0.6 % Normal 0-1 [facility] Comment on above: Performed By: #### L 500.4050, L300.4310, L100.0100, L300.3900, L501.4021, L503.6005, M200.1000 ####[facility] [address] [place], [address] Eosinophils/100 WBC (Bld) 0.8 % Normal 0-5 [facility] Comment on above: Performed By: #### L 500.4050, L300.4310, L100.0100, L300.3900, L501.4021, L503.6005, M200.1000 ####[facility] [address] [place], [address] Erythrocyte distribution width (RBC) [Ratio] 16.0 % High 11.6-14.6 [facility] Comment on above: Performed By: #### L 500.4050, L300.4310, L100.0100, L300.3900, L501.4021, L503.6005, M200.1000 ####[facility] [address] [place], [address] Hematocrit (Bld) [Volume fraction] 39.6 % Normal 37-47 [facility] Comment on above: Performed By: #### L 500.4050, L300.4310, L100.0100, L300.3900, L501.4021, L503.6005, M200.1000 ####[facility] [address] [place], [address] Hemoglobin (Bld) [Mass/Vol] 12.1 g/dL Normal 12.0-15.0 [facility] Comment on above: Performed By: #### L 500.4050, L300.4310, L100.0100, L300.3900, L501.4021, L503.6005, M200.1000 ####[facility] [address] [place], [address] IG% 0.500 Normal 0.0-0.9 [facility] Comment on above: Result Comment: IG% - Immature Granulocytes (promyelocytes, myelocytes andmetamyelocytes) > 1% indicates that a LEFT SHIFT is Present. Performed By: #### L 500.4050, L300.4310, L100.0100, L300.3900, L501.4021, L503.6005, M200.1000 ####[facility] [address] [place], [address] Lymphocytes/100 WBC (Bld) 32.0 % Normal 19-41 [facility] Comment on above: Performed By: #### L 500.4050, L300.4310, L100.0100, L300.3900, L501.4021, L503.6005, M200.1000 ####[facility] [address] [place], [address] MCH (RBC) [Entitic mass] 27.4 pg Normal 27.0-32.0 [facility] Comment on above: Performed By: #### L 500.4050, L300.4310, L100.0100, L300.3900, L501.4021, L503.6005, M200.1000 ####[facility] [address] [place], [address] MCHC (RBC) [Mass/Vol] 30.6 g/dL Low 32-36 [facility] Comment on above: Performed By: #### L 500.4050, L300.4310, L100.0100, L300.3900, L501.4021, L503.6005, M200.1000 ####[facility] [address] [place], [address] MCV (RBC) [Entitic vol] 89.8 fL Normal 81-99 [facility] Comment on above: Performed By: #### L 500.4050, L300.4310, L100.0100, L300.3900, L501.4021, L503.6005, M200.1000 ####[facility] [address] [place], [address] Monocytes/100 WBC (Bld) 7.7 % Normal 0-10 [facility] Comment on above: Performed By: #### L 500.4050, L300.4310, L100.0100, L300.3900, L501.4021, L503.6005, M200.1000 ####[facility] [address] [place], [address] Neutrophils/100 WBC (Bld) 58.4 % Normal 47-70 [facility] Comment on above: Performed By: #### L 500.4050, L300.4310, L100.0100, L300.3900, L501.4021, L503.6005, M200.1000 ####[facility] [address] [place], [address] Nucleated RBC (Bld) [#/Vol] 0 10*3/uL Normal 0-5 [facility] Comment on above: Performed By: #### L 500.4050, L300.4310, L100.0100, L300.3900, L501.4021, L503.6005, M200.1000 ####[facility] [address] [place], [address] Platelet mean volume (Bld) [Entitic vol] 12.0 fL Normal 6.2-12.0 [facility] Comment on above: Performed By: #### L 500.4050, L300.4310, L100.0100, L300.3900, L501.4021, L503.6005, M200.1000 ####[facility] [address] [place], [address] Platelets (Bld) [#/Vol] 287 10*3/uL Normal 150-450 [facility] Comment on above: Performed By: #### L 500.4050, L300.4310, L100.0100, L300.3900, L501.4021, L503.6005, M200.1000 ####[facility] [address] [place], [address] RBC (Bld) [#/Vol] 4.41 10*6/uL Normal 4.2-5.4 [facility] Comment on above: Performed By: #### L 500.4050, L300.4310, L100.0100, L300.3900, L501.4021, L503.6005, M200.1000 ####[facility] [address] [place], [address] RDW SD 52.7 fl High 35.1-43.9 [facility] Comment on above: Performed By: #### L 500.4050, L300.4310, L100.0100, L300.3900, L501.4021, L503.6005, M200.1000 ####[facility] [address] [place], [address] WBC (Bld) [#/Vol] 14.4 10*3/uL High 4.4-11.0 [facility] Comment on above: Performed By: #### L 500.4050, L300.4310, L100.0100, L300.3900, L501.4021, L503.6005, M200.1000 ####[facility] [address] [place], [address] CTA Chest W/WO Contraston CTA Chest W/WO Contrast Normal [facility] Calculated very low density lipoprotein (VLDL) cholesterol measurementOrdered By: Sandeep Marie on 01-20-2025 Calculated very low density lipoprotein (VLDL) cholesterol measurement 12 mg/dL 5-40 [facility] Comprehensive Metabolic Prof ilon 01-20-2025 Albumin [Mass/Vol] 3.6 g/dL Normal 3.4-4.8 [facility] Comment on above: Performed By: #### L 500.4050, L300.4310, L100.0100, L300.3900, L501.4021, L503.6005, M200.1000 ####[facility] [address] [place], [address] Albumin/Globulin [Mass ratio] 0.9 {ratio} Normal 0.9-2.4 [facility] Comment on above: Performed By: #### L 500.4050, L300.4310, L100.0100, L300.3900, L501.4021, L503.6005, M200.1000 ####[facility] [address] [place], [address] ALK PHOS 143 U/L High 35-104 [facility] Comment on above: Performed By: #### L 500.4050, L300.4310, L100.0100, L300.3900, L501.4021, L503.6005, M200.1000 ####[facility] [address] [place], [address] ALT [Catalytic activity/Vol] 36 U/L High <=34 [facility] Comment on above: Performed By: #### L 500.4050, L300.4310, L100.0100, L300.3900, L501.4021, L503.6005, M200.1000 ####[facility] [address] [place], [address] AST [Catalytic activity/Vol] 81 U/L High <=31 [facility] Comment on above: Result Comment: Hemo lysis present, Results??could be affected.?? Performed By: #### L 500.4050, L300.4310, L100.0100, L300.3900, L501.4021, L503.6005, M200.1000 ####[facility] [address] [place], [address] Bilirubin [Mass/Vol] 0.26 mg/dL Normal 0.00-1.30 [facility] Comment on above: Performed By: #### L 500.4050, L300.4310, L100.0100, L300.3900, L501.4021, L503.6005, M200.1000 ####[facility] [address] [place], [address] BUN/CRE 8.1 RATIO Low 10-20 [facility] Comment on above: Performed By: #### L 500.4050, L300.4310, L100.0100, L300.3900, L501.4021, L503.6005, M200.1000 ####[facility] [address] [place], [address] Calcium [Mass/Vol] 10.2 mg/dL Normal 7.6-11.0 [facility] Comment on above: Performed By: #### L 500.4050, L300.4310, L100.0100, L300.3900, L501.4021, L503.6005, M200.1000 ####[facility] [address] [place], [address] Chloride [Moles/Vol] 97 mmol/L Low 98-108 [facility] Comment on above: Performed By: #### L 500.4050, L300.4310, L100.0100, L300.3900, L501.4021, L503.6005, M200.1000 ####[facility] [address] [place], [address] CO2 [Moles/Vol] 25.7 mmol/L Normal 21.0-32.0 [facility] Comment on above: Performed By: #### L 500.4050, L300.4310, L100.0100, L300.3900, L501.4021, L503.6005, M200.1000 ####[facility] [address] [place], [address] Creatinine [Mass/Vol] 1.24 mg/dL High 0.70-1.20 [facility] Comment on above: Performed By: #### L 500.4050, L300.4310, L100.0100, L300.3900, L501.4021, L503.6005, M200.1000 ####[facility] [address] [place], [address] ECRCL 34.84 ml/min Low 50-250 [facility] Comment on above: Performed By: #### L 500.4050, L300.4310, L100.0100, L300.3900, L501.4021, L503.6005, M200.1000 ####[facility] [address] [place], [address] GAP 15 Normal 5-15 [facility] Comment on above: Performed By: #### L 500.4050, L300.4310, L100.0100, L300.3900, L501.4021, L503.6005, M200.1000 ####[facility] [address] [place], [address] GFR/1.73 sq M.predicted among non-blacks MDRD (S/P/Bld) [Vol rate/Area] 44 mL/min/{1.73_m2} Low >60 [facility] Comment on above: Result Comment: mL/m in/1.73m2 CKD-EPI Creatinine Equation (2020) Performed By: #### L 500.4050, L300.4310, L100.0100, L300.3900, L501.4021, L503.6005, M200.1000 ####[facility] [address] [place], [address] Globulin (S) [Mass/Vol] 4.1 g/dL Normal 2.2-4.2 [facility] Comment on above: Performed By: #### L 500.4050, L300.4310, L100.0100, L300.3900, L501.4021, L503.6005, M200.1000 ####[facility] [address] [place], [address] Glucose [Mass/Vol] 347 mg/dL High 70-99 [facility] Comment on above: Performed By: #### L 500.4050, L300.4310, L100.0100, L300.3900, L501.4021, L503.6005, M200.1000 ####[facility] [address] [place], [address] Potassium [Moles/Vol] 4.0 mmol/L Normal 3.3-5.1 [facility] Comment on above: Result Comment: Hemo lysis present, Results??could be affected.?? Performed By: #### L 500.4050, L300.4310, L100.0100, L300.3900, L501.4021, L503.6005, M200.1000 ####[facility] [address] [place], [address] Sodium [Moles/Vol] 137 mmol/L Normal 133-145 [facility] Comment on above: Performed By: #### L 500.4050, L300.4310, L100.0100, L300.3900, L501.4021, L503.6005, M200.1000 ####[facility] [address] [place], [address] T PROT 7.6 g/dL Normal 5.9-8.4 [facility] Comment on above: Performed By: #### L 500.4050, L300.4310, L100.0100, L300.3900, L501.4021, L503.6005, M200.1000 ####[facility] [address] [place], [place], [phone] Urea nitrogen [Mass/Vol] 10 mg/dL Normal 4-19 [facility] Comment on above: Performed By: #### L 500.4050, L300.4310, L100.0100, L300.3900, L501.4021, L503.6005, M200.1000 ####[facility] [address] [place], [place], [phone] Echo Completeon 01-20-2025 Echo Complete Normal [facility] Echocardiogram study reportO rdered By: Macrelina Soto on 01-20-2025 Study report [facility] Work Phone: Emergency Department Summary on 01-20-2025 Emergency Department Summary Normal [facility] H AND P Exam - Hospitaliston 01-20-2025 H&P Exam - Hospitalist Normal [facility] Hemoglobin A1con 01-20-2025 HbA1c (Bld) [Mass fraction] 10.6 % High <=5.6 [facility] Comment on above: Result Comment: Norm al < 5.7 % Prediabetic 5.7 - 6.4 % Diabetic >or= 6.5 % Please note range changes. Performed By: #### L 501.9985 ####[facility] [address] [place], [place], [address] Hemoglobin A1c percentageOrd ered By: Sandeep Marie on 01-20-2025 HbA1c (Bld) [Mass fraction] 10.6 % High <5.7 [facility] Ketones Test strip Ql (U)Ord ered By: Jeevan Yoder on 01-20-2025 Ketones Ql (U) Negative Negative [facility] L499.0042on 01-20-2025 Trop T High Sen 71 ng/L Invalid Interpretation Code <=14 [facility] Comment on above: Result Comment: Crit ical Result(s) Called at:0237 by: EMA PATEL.??Results read back by same. Performed By: #### L 499.0042 ####[facility] [address] [place], [address] L499.0043on 01-20-2025 Trop T High Sen 94 ng/L Invalid Interpretation Code <=14 [facility] Comment on above: Order Comment: PT SUAREZ S NOT MADE IT TO ROOM YET FROM ER OF 409 Result Comment: Crit ical Result(s) Called at 0548: by: SHARONA ALVAREZ. ??Results read back by same. Performed By: #### L 499.0043 ####[facility] [address] [place], [address] L501.4021on 01-20-2025 Trop T High Sen 52 ng/L High <=14 [facility] Comment on above: Performed By: #### L 500.4050, L300.4310, L100.0100, L300.3900, L501.4021, L503.6005, M200.1000 ####[facility] [address] [place], [address] L503.7505on 01-20-2025 Natriuretic peptide B (Bld) [Mass/Vol] 9449 pg/mL High <=1800 [facility] Comment on above: Result Comment: Hear t Failure Unlikely: < 300 pg/mLHeart Failure Likely< 50 Years: > 450 pg/mL50-75 Years: > 900 pg/mL>75 Years: > 1800 pg/mL Performed By: #### L 503.7505, L500.4100, L501.9520 ####[facility] [address] [place], [address] LDL calc ser/plasOrdered By: Sandeep Marie on 01-20-2025 Cholesterol in LDL [Mass/Vol] 79 mg/dL [facility] Lactic Acidon 01-20-2025 Lactate [Moles/Vol] 1.7 mmol/L Normal 0.0-2.0 [facility] Comment on above: Performed By: #### L 503.6005 ####[facility] [address] [place], [address] Lactate [Moles/Vol] 2.0 mmol/L Normal 0.0-2.0 [facility] Comment on above: Order Comment: Comme nts: if result >2, system reflex orders 2nd test @ 4hrsY Result Comment: Crit ical Result(s) Called at 0615: by: SHARONA ALVAREZ. ??Results read back by same. Performed By: #### M 200.1000, L503.6005 ####[facility] [address] [place], [place], [address] Lactate [Moles/Vol] 3.4 mmol/L Invalid Interpretation Code 0.0-2.0 [facility] Comment on above: Order Comment: Y Result Comment: Crit ical Result(s) Called at: 0116 by: EMA BOWEN TO [facility].??Results read back by same. Performed By: #### L 500.4050, L300.4310, L100.0100, L300.3900, L501.4021, L503.6005, M200.1000 ####[facility] [address] [place], [address] Legionella Antigen Urineon 0 01-20-2025 LEGU Normal [facility] Comment on above: Performed By: #### M 300.4600, M300.4500 ####[facility] [address] [place], [address] Lipid Profileon 01-20-2025 CHOL:HDL 2.89 Normal [facility] Comment on above: Performed By: #### L 503.7505, L500.4100, L501.9520 ####[facility] [address] [place], [address] Cholesterol [Mass/Vol] 140 mg/dL Normal <=200 [facility] Comment on above: Result Comment: Chol esterol level, Desirable <200 mg/dLBorderline high cholesterol 200-239 mg/dLHigh cholesterol >=240 mg/dLRecommendations of the NCEP Adult Treatment Panel for thefollowing risk-cutoff thresholds for the [facility]. Performed By: #### L 503.7505, L500.4100, L501.9520 ####[facility] [address] [place], [address] Cholesterol in HDL [Mass/Vol] 49 mg/dL Normal [facility] Comment on above: Result Comment: Camelia onal Cholesterol Education Program (NCEP) guidelines:<40 mg/dL: Low HDL-cholesterol (major risk factor for CHD)>= 60 mg/dL: High HDL-cholesterol (negative risk factor forCHD)HDL-cholesterol is affected by a number of factors, e.g.smoking, exercise, hormones, sex and age. Performed By: #### L 503.7505, L500.4100, L501.9520 ####[facility] [address] [place], [address] Cholesterol in LDL [Mass/Vol] 79 mg/dL Normal [facility] Comment on above: Result Comment: Bord qlgmty=879-068 mg/dL Higher Ahix=920 mg/dL or greater Performed By: #### L 503.7505, L500.4100, L501.9520 ####[facility] [address] [place], [address] Cholesterol in VLDL [Mass/Vol] 12 mg/dL Normal 5-40 [facility] Comment on above: Performed By: #### L 503.7505, L500.4100, L501.9520 ####[facility] [address] [place], [address] Triglyceride [Mass/Vol] 62 mg/dL Normal [facility] Comment on above: Result Comment: The drugs N-Acetylcysteine and Metamizole may falselydepress this assay.Normal range: <150 mg/dLBorderline High: 150-199 mg/dLHigh: 200-499 mg/dLVery High: >500 mg/dL Performed By: #### L 503.7505, L500.4100, L501.9520 ####[facility] [address] [place], [address] Measurement, pHOrdered By: Connor Borden on 01-20-2025 pH (Unsp spec) 7.38 [pH] 7.35-7.45 [facility] Mucus LM Ql (Urine sed)Order ed By: Jeevan Yoder on 01-20-2025 Mucus Ql (Urine sed) 0 SEEN /hpf [facility] Nitrite Test strip Ql (U)Ord ered By: Jeevan Yoder on 01-20-2025 Nitrite Ql (U) Negative Negative [facility] No Panel InformationOrdered By: Lucio Borden on 01-20-2025 ART [facility] R Radial [facility] ST [facility] BiPAP [facility] 500.0 mL [facility] 14 [facility] 8 [facility] 16:55:40 [facility] tereletsky [facility] Yes [facility] No Panel InformationOrdered By: Jeevan Yoder on 01-20-2025 See comment [facility] 81 U/L High <32 [facility] Partial Thromboplast Timeon 01-20-2025 aPTT Coag (Bld) [Time] 26.9 s Normal 24.1-36.2 [facility] Comment on above: Performed By: #### L 500.4050, L300.4310, L100.0100, L300.3900, L501.4021, L503.6005, M200.1000 ####[facility] [address] [place], [address] Protein Test strip Ql (U)Ord ered By: Jeevan Yoder on 01-20-2025 Protein Ql (U) 100 mg/dl High Negative [facility] Prothrombin Time w/INRon INR Coag (PPP) [Relative time] 1.1 {INR} Normal [facility] Comment on above: Performed By: #### L 500.4050, L300.4310, L100.0100, L300.3900, L501.4021, L503.6005, M200.1000 ####[facility] [address] [place], [address] PT Coag (PPP) [Time] 14.6 s Normal 11.7-14.9 [facility] Comment on above: Performed By: #### L 500.4050, L300.4310, L100.0100, L300.3900, L501.4021, L503.6005, M200.1000 ####[facility] [address] [place], [address] Prothrombin timeOrdered By: Jeevan Yoder on 01-20-2025 PT Coag (PPP) [Time] 14.6 s 11.7-14.9 [facility] RESPIRATORY PANEL MOLECULARo n 01-20-2025 RP PANEL Normal [facility] Comment on above: Performed By: #### M 100.237 ####[facility] [address] [place], [place], [id number] Respiratory pathogens detect ion panel by molecular detection methodOrdered By: Sandeep Marie on 01-20-2025 Respiratory pathogens DNA and RNA panel BEBETO+probe (Resp) [facility] Serum globulin measurementOr dered By: Jeevan Yoder on 01-20-2025 Globulin (S) [Mass/Vol] 4.1 g/dL 2.2-4.2 [facility] Serum or plasma alanine kelley otransferase (ALT) measurementOrdered By: Jeevan Yoder on 01-20-2025 ALT [Catalytic activity/Vol] 36 U/L High <35 [facility] Serum or plasma albumin melanie urement (mass/volume)Ordered By: Jeevan Yoder on 01-20-2025 Albumin [Mass/Vol] 3.6 g/dL 3.4-4.8 [facility] Serum or plasma albumin/glob ulin mass ratioOrdered By: Jeevan Yoder on 01-20-2025 Albumin/Globulin [Mass ratio] 0.9 {ratio} 0.9-2.4 [facility] Serum or plasma alkaline lissa sphatase measurementOrdered By: Jeevan Yoder on 01-20-2025 ALP [Catalytic activity/Vol] 143 U/L High 35-104 [facility] Serum or plasma cholesterol in HDL measurement (mass/volume)Ordered By: Sandeep Marie on 01-20-2025 Cholesterol in HDL [Mass/Vol] 49 mg/dL >40 [facility] Serum or plasma cholesterol measurement (mass/volume)Ordered By: Sandeep Marie on 01-20-2025 Cholesterol [Mass/Vol] 140 mg/dL <201 [facility] Squamous epithelial cells de tection in urine sediment by light microscopyOrdered By: Jeevan Yoder on 01-20-2025 Epithelial cells.squamous LM Ql (Urine sed) 5-10 SEEN /hpf 5-10 [facility] Strep pneumoniae Antig(UR,CS F)on 01-20-2025 STPAG Normal [facility] Comment on above: Performed By: #### M 300.4600, M300.4500 ####[facility] [address] [place], [address] TSH DL <= 0.005 mIU/L QnOrde red By: Sandeep Marie on 01-20-2025 TSH Qn 0.492 uIU/mL 0.300-4.200 [facility] Thyroid Stim Hormone (TSH)on 01-20-2025 TSH 0.492 uIU/mL Normal 0.300-4.200 [facility] Comment on above: Performed By: #### L 503.7505, L500.4100, L501.9520 ####[facility] [address] [place], [place], [id number] Total carbon dioxide measure mentOrdered By: Lucio Borden on 01-20-2025 CO2 [Moles/Vol] 37 mmol/L [facility] Total proteinOrdered By: Maeve Yoder on 01-20-2025 Protein [Mass/Vol] 7.6 g/dL 5.9-8.4 [facility] Troponin T.cardiac [Mass/vol ume] in Serum or Plasma by High sensitivity methodOrdered By: Jeevan Yoder on 01-20-2025 Troponin T.cardiac High sensitivity method [Mass/Vol] 94 ng/L High <14 [facility] Troponin T.cardiac High sensitivity method [Mass/Vol] 71 ng/L High <14 [facility] Troponin T.cardiac High sensitivity method [Mass/Vol] 52 ng/L High <14 [facility] Urinalysis, Completeon 01-20 EPI,SQUAMOUS 5-10 SEEN Normal 5-10 [facility] Comment on above: Order Comment: MARSHALL CTOR TO SPECIFY Performed By: #### L 400.0001 ####[facility] [address] [place], [address] RBC 5-10 SEEN Normal 0-5 [facility] Comment on above: Order Comment: MARSHALL CTOR TO SPECIFY Performed By: #### L 400.0001 ####[facility] [address] [place], [address] WBC 0-5 SEEN Normal 0-5 [facility] Comment on above: Order Comment: MARSHALL CTOR TO SPECIFY Performed By: #### L 400.0001 ####[facility] [address] [place], [address] BACTERIA 0 SEEN Normal None Seen [facility] Comment on above: Order Comment: MARSHALL CTOR TO SPECIFY Performed By: #### L 400.0001 ####[facility] [address] [place], [address] Mucus Ql (Urine sed) 0 SEEN Normal [facility] Comment on above: Order Comment: MARSHALL CTOR TO SPECIFY Performed By: #### L 400.0001 ####[facility] [address] [place], [place], [id number] Urine Legionella pneumophila antigen detectionOrdered By: Sandeep Marie on 01-20-2025 L. pneumophila Ag Ql (U) [facility] Urine clarityOrdered By: Maeve Yoder on 01-20-2025 Clarity (U) Clear Clear [facility] Urine color determinationOrd ered By: Jeevan Yoder on 01-20-2025 Color (U) Straw Yellow [facility] Urine cultureOrdered By: Maeve Yoder on 01-20-2025 Bacteria identified Cx Nom (U) Proteus mirabilis Abnormal [facility] Urine glucose detectionOrder ed By: Jeevan Yoder on 01-20-2025 Glucose Ql (U) 1000 mg/dl High Normal [facility] Urine leukocyte esterase det ection by dipstickOrdered By: Jeevan Yoder on 01-20-2025 Leukocyte esterase Test strip Ql (U) Negative Negative [facility] Urine pHOrdered By: Jeevan rai on 01-20-2025 pH (U) 6.0 [pH] 5.0 - 8.0 [facility] Urine sediment bacteria coun t by microscopy (number/high power field)Ordered By: Jeevan Yoder on 01-20-2025 Bacteria LM.HPF (Urine sed) [#/Area] 0 /[HPF] None Seen [facility] Urine specific gravity measu rementOrdered By: Jeevan Yoder on 01-20-2025 Specific gravity (U) [Rel density] 1.010 1.002-1.030 [facility] Urine urobilinogen measureme ntOrdered By: Jeevan Yoder on 01-20-2025 Urobilinogen Ql (U) Normal mg/dl Normal [facility] White blood cell countOrdere d By: Jeevan Yoder on 01-20-2025 White blood cell count 0-5 SEEN /hpf 0-5 [facility] Anion gap in Serum or Plasma Ordered By: Ramone Smiley on 01-19-2025 Anion gap [Moles/Vol] 14 mmol/L 5-15 [facility] BUN/creatinine ratioOrdered By: Ramone Smiley on 01-19-2025 Urea nitrogen/Creatinine [Mass ratio] 7.7 mg/mg Low 10-20 [facility] Bilirubin, totalOrdered By: Ramone Smiley on 01-19-2025 Bilirubin [Mass/Vol] 0.25 mg/dL 0.00-1.30 [facility] CBC-Complete Blood Cnt No Di ffon 01-19-2025 Erythrocyte distribution width (RBC) [Ratio] 16.0 % High 11.6-14.6 [facility] Comment on above: Order Comment: Order Date: 01/19/25Order Info: [id number] - CBC Performed By: #### L 500.4050, L501.5200, L100.0500 ####[facility] [address] [place], [address] Hematocrit (Bld) [Volume fraction] 35.3 % Low 37-47 [facility] Comment on above: Order Comment: Order Date: 01/19/25Order Info: [id number] - CBC Performed By: #### L 500.4050, L501.5200, L100.0500 ####[facility] [address] [place], [address] Hemoglobin (Bld) [Mass/Vol] 10.9 g/dL Low 12.0-15.0 [facility] Comment on above: Order Comment: Order Date: 01/19/25Order Info: [id number] - CBC Performed By: #### L 500.4050, L501.5200, L100.0500 ####[facility] [address] [place], [address] MCH (RBC) [Entitic mass] 27.7 pg Normal 27.0-32.0 [facility] Comment on above: Order Comment: Order Date: 01/19/25Order Info: [id number] - CBC Performed By: #### L 500.4050, L501.5200, L100.0500 ####[facility] [address] [place], [address] MCHC (RBC) [Mass/Vol] 30.9 g/dL Low 32-36 [facility] Comment on above: Order Comment: Order Date: 01/19/25Order Info: [id number] - CBC Performed By: #### L 500.4050, L501.5200, L100.0500 ####[facility] [address] [place], [address] MCV (RBC) [Entitic vol] 89.6 fL Normal 81-99 [facility] Comment on above: Order Comment: Order Date: 01/19/25Order Info: [id number] - CBC Performed By: #### L 500.4050, L501.5200, L100.0500 ####[facility] [address] [place], [address] Platelet mean volume (Bld) [Entitic vol] 11.6 fL Normal 6.2-12.0 [facility] Comment on above: Order Comment: Order Date: 01/19/25Order Info: [id number] - CBC Performed By: #### L 500.4050, L501.5200, L100.0500 ####[facility] [address] [place], [address] Platelets (Bld) [#/Vol] 253 10*3/uL Normal 150-450 [facility] Comment on above: Order Comment: Order Date: 01/19/25Order Info: [id number] - CBC Performed By: #### L 500.4050, L501.5200, L100.0500 ####[facility] [address] [place], [address] RBC (Bld) [#/Vol] 3.94 10*6/uL Low 4.2-5.4 [facility] Comment on above: Order Comment: Order Date: 01/19/25Order Info: [id number] - CBC Performed By: #### L 500.4050, L501.5200, L100.0500 ####[facility] [address] [place], [address] RDW SD 52.7 fl High 35.1-43.9 [facility] Comment on above: Order Comment: Order Date: 01/19/25Order Info: [id number] - CBC Performed By: #### L 500.4050, L501.5200, L100.0500 ####[facility] [address] [place], [address] WBC (Bld) [#/Vol] 8.3 10*3/uL Normal 4.4-11.0 [facility] Comment on above: Order Comment: Order Date: 01/19/25Order Info: [id number] - CBC Performed By: #### L 500.4050, L501.5200, L100.0500 ####[facility] [address] [place], [address] Carbon dioxide, total [Moles /volume] in Central venous bloodOrdered By: Ramone Smiley on 01-19-2025 CO2 [Moles/Vol] 27.2 mmol/L 21.0-32.0 [facility] Chloride assayOrdered By: Richar Smiley on 01-19-2025 Chloride [Moles/Vol] 96 mmol/L Low 98-108 [facility] Comprehensive Metabolic Prof ilon 01-19-2025 Albumin [Mass/Vol] 3.4 g/dL Normal 3.4-4.8 [facility] Comment on above: Order Comment: Order Date: 01/19/25Order Info: [id number] - CMPOrder Info: [id number] - MG Performed By: #### L 500.4050, L501.5200, L100.0500 ####[facility] [address] [place], [address] Albumin/Globulin [Mass ratio] 0.9 {ratio} Normal 0.9-2.4 [facility] Comment on above: Order Comment: Order Date: 01/19/25Order Info: [id number] - CMPOrder Info: [id number] - MG Performed By: #### L 500.4050, L501.5200, L100.0500 ####[facility] [address] [place], [address] ALK PHOS 123 U/L High 35-104 [facility] Comment on above: Order Comment: Order Date: 01/19/25Order Info: [id number] - CMPOrder Info: [id number] - MG Performed By: #### L 500.4050, L501.5200, L100.0500 ####[facility] [address] [place], [address] ALT [Catalytic activity/Vol] 18 U/L Normal <=34 [facility] Comment on above: Order Comment: Order Date: 01/19/25Order Info: [id number] - CMPOrder Info: [id number] - MG Performed By: #### L 500.4050, L501.5200, L100.0500 ####[facility] [address] [place], [address] AST [Catalytic activity/Vol] 25 U/L Normal <=31 [facility] Comment on above: Order Comment: Order Date: 01/19/25Order Info: [id number] - CMPOrder Info: [id number] - MG Performed By: #### L 500.4050, L501.5200, L100.0500 ####[facility] [address] [place], [address] Bilirubin [Mass/Vol] 0.25 mg/dL Normal 0.00-1.30 [facility] Comment on above: Order Comment: Order Date: 01/19/25Order Info: [id number] - CMPOrder Info: [id number] - MG Performed By: #### L 500.4050, L501.5200, L100.0500 ####[facility] [address] [place], [address] BUN/CRE 7.7 RATIO Low 10-20 [facility] Comment on above: Order Comment: Order Date: 01/19/25Order Info: [id number] - CMPOrder Info: [id number] - MG Performed By: #### L 500.4050, L501.5200, L100.0500 ####[facility] [address] [place], [address] Calcium [Mass/Vol] 10.4 mg/dL Normal 7.6-11.0 [facility] Comment on above: Order Comment: Order Date: 01/19/25Order Info: [id number] - CMPOrder Info: [id number] - MG Performed By: #### L 500.4050, L501.5200, L100.0500 ####[facility] [address] [place], [address] Chloride [Moles/Vol] 96 mmol/L Low 98-108 [facility] Comment on above: Order Comment: Order Date: 01/19/25Order Info: [id number] - CMPOrder Info: [id number] - MG Performed By: #### L 500.4050, L501.5200, L100.0500 ####[facility] [address] [place], [address] CO2 [Moles/Vol] 27.2 mmol/L Normal 21.0-32.0 [facility] Comment on above: Order Comment: Order Date: 01/19/25Order Info: [id number] - CMPOrder Info: [id number] - MG Performed By: #### L 500.4050, L501.5200, L100.0500 ####[facility] [address] [place], [address] Creatinine [Mass/Vol] 1.06 mg/dL Normal 0.70-1.20 [facility] Comment on above: Order Comment: Order Date: 01/19/25Order Info: [id number] - CMPOrder Info: [id number] - MG Performed By: #### L 500.4050, L501.5200, L100.0500 ####[facility] [address] [place], [address] GAP 14 Normal 5-15 [facility] Comment on above: Order Comment: Order Date: 01/19/25Order Info: [id number] - CMPOrder Info: [id number] - MG Performed By: #### L 500.4050, L501.5200, L100.0500 ####[facility] [address] [place], [address] GFR/1.73 sq M.predicted among non-blacks MDRD (S/P/Bld) [Vol rate/Area] 53 mL/min/{1.73_m2} Low >60 [facility] Comment on above: Order Comment: Order Date: 01/19/25Order Info: [id number] - CMPOrder Info: [id number] - MG Result Comment: mL/m in/1.73m2 CKD-EPI Creatinine Equation (2020) Performed By: #### L 500.4050, L501.5200, L100.0500 ####[facility] [address] [place], [address] Globulin (S) [Mass/Vol] 3.9 g/dL Normal 2.2-4.2 [facility] Comment on above: Order Comment: Order Date: 01/19/25Order Info: [id number] - CMPOrder Info: [id number] - MG Performed By: #### L 500.4050, L501.5200, L100.0500 ####[facility] [address] [place], [address] Glucose [Mass/Vol] 288 mg/dL High 70-99 [facility] Comment on above: Order Comment: Order Date: 01/19/25Order Info: [id number] - CMPOrder Info: [id number] - MG Performed By: #### L 500.4050, L501.5200, L100.0500 ####[facility] [address] [place], [address] Potassium [Moles/Vol] 3.3 mmol/L Normal 3.3-5.1 [facility] Comment on above: Order Comment: Order Date: 01/19/25Order Info: [id number] - CMPOrder Info: [id number] - MG Performed By: #### L 500.4050, L501.5200, L100.0500 ####[facility] [address] [place], [address] Sodium [Moles/Vol] 137 mmol/L Normal 133-145 [facility] Comment on above: Order Comment: Order Date: 01/19/25Order Info: [id number] - CMPOrder Info: [id number] - MG Performed By: #### L 500.4050, L501.5200, L100.0500 ####[facility] [address] [place], [address] T PROT 7.3 g/dL Normal 5.9-8.4 [facility] Comment on above: Order Comment: Order Date: 01/19/25Order Info: [id number] - CMPOrder Info: [id number] - MG Performed By: #### L 500.4050, L501.5200, L100.0500 ####[facility] [address] [place], [address] Urea nitrogen [Mass/Vol] 8 mg/dL Normal 4-19 [facility] Comment on above: Order Comment: Order Date: 01/19/25Order Info: [id number] - CMPOrder Info: [id number] - MG Performed By: #### L 500.4050, L501.5200, L100.0500 ####[facility] [address] [place], [place], [address] Erythrocyte distribution wid th ratioOrdered By: Ramone Smiley on 01-19-2025 Erythrocyte distribution width (RBC) [Ratio] 16.0 % High 11.6-14.6 [facility] Erythrocyte distribution wid th standard deviationOrdered By: Ramone Smiley on 01-19-2025 Erythrocyte distribution width (RBC) [Ratio] 52.7 fl High 35.1-43.9 [facility] Glomerular filtration rate ( GFR) estimation/1.73 sq m using serum, plasma, or whole bOrdered By: Ramone Smiley on 01-19-2025 GFR/1.73 sq M.predicted among non-blacks MDRD (S/P/Bld) [Vol rate/Area] 53 mL/min/{1.73_m2} Low >60 [facility] Hematocrit Auto (Bld) [Volum e fraction]Ordered By: Ramone Smiley on 01-19-2025 Hematocrit (Bld) [Volume fraction] 35.3 % Low 37-47 [facility] Hemoglobin measurementOrdere d By: Ramone Smiley on 01-19-2025 Hemoglobin (Bld) [Mass/Vol] 10.9 g/dL Low 12.0-15.0 [facility] L503.7505on 01-19-2025 Natriuretic peptide B (Bld) [Mass/Vol] 3173 pg/mL High <=1800 [facility] Comment on above: Order Comment: Order Date: 01/19/25Order Info: [id number] - CMPOrder Info: [id number] - MG Result Comment: Hear t Failure Unlikely: < 300 pg/mLHeart Failure Likely< 50 Years: > 450 pg/mL50-75 Years: > 900 pg/mL>75 Years: > 1800 pg/mL Performed By: #### L 503.1181 ####[facility] [address] [place], [place], [address] MCV (mean corpuscular volume ) determinationOrdered By: Ramone Smiley on 01-19-2025 MCV (RBC) [Entitic vol] 89.6 fL 81-99 [facility] Magnesiumon 01-19-2025 Magnesium [Mass/Vol] 2.3 mg/dL High 1.5-2.2 [facility] Comment on above: Order Comment: Order Date: 01/19/25Order Info: [id number] - CMPOrder Info: [id number] - MG Performed By: #### L 500.4050, L501.5200, L100.0500 ####[facility] [address] [place], [address] Magnesium measurement (mass/ volume)Ordered By: Ramone Smiley on 01-19-2025 Magnesium (Unsp spec) [Mass/Vol] 2.3 mg/dL High 1.5-2.2 [facility] Mean corpuscular hemoglobin (MCH) determinationOrdered By: Ramone Smiley on 01-19-2025 MCH (RBC) [Entitic mass] 27.7 pg 27.0-32.0 [facility] Natriuretic peptide.B prohor hayley N-Terminal [Mass/volume] in Serum or PlasmaOrdered By: Ramone Smiley on 01-19-2025 Natriuretic peptide.B prohormone N-Terminal [Mass/Vol] 3173 pg/mL High <1800 [facility] No Panel InformationOrdered By: Ramone Smiley on 01-19-2025 25 U/L <32 [facility] Platelet countOrdered By: Richar Smiley on 01-19-2025 Platelets (Bld) [#/Vol] 253 10*3/uL 150-450 [facility] Potassium measurement (mass/ volume)Ordered By: Ramone Smiley on 01-19-2025 Potassium (Unsp spec) [Mass/Vol] 3.3 mmol/L 3.3-5.1 [facility] RBC Auto (Bld) [#/Vol]Ordere d By: Ramone Smiley on 01-19-2025 RBC (Bld) [#/Vol] 3.94 10*6/uL Low 4.2-5.4 [facility] Serum creatinine measurement (mass/volume)Ordered By: Ramone Smiley on 01-19-2025 Creatinine [Mass/Vol] 1.06 mg/dL 0.70-1.20 [facility] Serum globulin measurementOr dered By: Ramone Smiley on 01-19-2025 Globulin (S) [Mass/Vol] 3.9 g/dL 2.2-4.2 [facility] Serum glucose measurement (m ass/volume)Ordered By: Ramone Smiley on 01-19-2025 Glucose [Mass/Vol] 288 mg/dL High 70-99 [facility] Serum or plasma alanine kelley otransferase (ALT) measurementOrdered By: Ramone Smiley on 01-19-2025 ALT [Catalytic activity/Vol] 18 U/L <35 [facility] Serum or plasma albumin melanie urement (mass/volume)Ordered By: Ramone Smiley on 01-19-2025 Albumin [Mass/Vol] 3.4 g/dL 3.4-4.8 [facility] Serum or plasma albumin/glob ulin mass ratioOrdered By: Ramone Smiley on 01-19-2025 Albumin/Globulin [Mass ratio] 0.9 {ratio} 0.9-2.4 [facility] Serum or plasma alkaline lissa sphatase measurementOrdered By: Ramone Smiley on 01-19-2025 ALP [Catalytic activity/Vol] 123 U/L High 35-104 [facility] Serum or plasma calcium melanie urement (mass/volume)Ordered By: Ramone Smiley on 01-19-2025 Calcium [Mass/Vol] 10.4 mg/dL 7.6-11.0 [facility] Serum or plasma urea nitroge n measurement (mass/volume)Ordered By: Ramone Smiley on 01-19-2025 Urea nitrogen [Mass/Vol] 8 mg/dL 4-19 [facility] Sodium levelOrdered By: Ramone Smiley on 01-19-2025 Sodium [Moles/Vol] 137 mmol/L 133-145 [facility] Total proteinOrdered By: Lilliam Smiley on 01-19-2025 Protein [Mass/Vol] 7.3 g/dL 5.9-8.4 [facility] White blood cell (WBC) count Ordered By: Ramone Smiley on 01-19-2025 WBC (Bld) [#/Vol] 8.3 10*3/uL 4.4-11.0 [facility] 12 Lead EKGon 01-15-2025 12 Lead EKG Normal [facility] Absolute lymphocyte countOrd ered By: Jeevan Yoder on 01-15-2025 Lymphocytes Auto (Unsp spec) [#/Vol] 1.92 10*3/uL 0.83-4.51 [facility] Absolute neutrophil countOrd ered By: Jeevan Yoder on 01-15-2025 Neutrophils (Bld) [#/Vol] 7.7 10*3/uL 2.0-7.7 [facility] Anion gap in Serum or Plasma Ordered By: Jeevan Yoder on 01-15-2025 Anion gap [Moles/Vol] 11 mmol/L 5-15 [facility] Automated lymphocyte count a s percentage of total leukocytesOrdered By: Jeevan Yoder on 01-15-2025 Lymphocytes/100 WBC Auto (Unsp spec) 18.1 % Low 19-41 [facility] BUN/creatinine ratioOrdered By: Jeevan Yoder on 01-15-2025 Urea nitrogen/Creatinine [Mass ratio] 16.6 mg/mg 10-20 [facility] Basic Metabolic Profile (BMP )on 01-15-2025 BUN/CRE 16.6 RATIO Normal -20 [facility] Comment on above: Performed By: #### L 500.2500, L501.4021, L100.0100 ####[facility] [address] [place], [address] Calcium [Mass/Vol] 9.6 mg/dL Normal 7.6-11.0 [facility] Comment on above: Performed By: #### L 500.2500, L501.4021, L100.0100 ####[facility] [address] [place], [address] Chloride [Moles/Vol] 102 mmol/L Normal 98-108 [facility] Comment on above: Performed By: #### L 500.2500, L501.4021, L100.0100 ####[facility] [address] [place], [address] CO2 [Moles/Vol] 25.0 mmol/L Normal 21.0-32.0 [facility] Comment on above: Performed By: #### L 500.2500, L501.4021, L100.0100 ####[facility] [address] [place], [address] Creatinine [Mass/Vol] 0.92 mg/dL Normal 0.70-1.20 [facility] Comment on above: Performed By: #### L 500.2500, L501.4021, L100.0100 ####[facility] [address] [place], [address] ECRCL 48.84 ml/min Low 50-250 [facility] Comment on above: Performed By: #### L 500.2500, L501.4021, L100.0100 ####[facility] [address] [place], [address] GAP 11 Normal 5-15 [facility] Comment on above: Performed By: #### L 500.2500, L501.4021, L100.0100 ####[facility] [address] [place], [address] GFR/1.73 sq M.predicted among non-blacks MDRD (S/P/Bld) [Vol rate/Area] 63 mL/min/{1.73_m2} Normal >60 [facility] Comment on above: Result Comment: mL/m in/1.73m2 CKD-EPI Creatinine Equation (2020) Performed By: #### L 500.2500, L501.4021, L100.0100 ####[facility] [address] [place], [address] Glucose [Mass/Vol] 144 mg/dL High 70-99 [facility] Comment on above: Performed By: #### L 500.2500, L501.4021, L100.0100 ####[facility] [address] [place], [address] Potassium [Moles/Vol] 3.7 mmol/L Normal 3.3-5.1 [facility] Comment on above: Performed By: #### L 500.2500, L501.4021, L100.0100 ####[facility] [address] [place], [address] Sodium [Moles/Vol] 138 mmol/L Normal 133-145 [facility] Comment on above: Performed By: #### L 500.2500, L501.4021, L100.0100 ####[facility] [address] [place], [address] Urea nitrogen [Mass/Vol] 15 mg/dL Normal 4-19 [facility] Comment on above: Performed By: #### L 500.2500, L501.4021, L100.0100 ####[facility] [address] [place], [address] Basophil percentageOrdered B y: Jeevan Yoder on 01-15-2025 Basophils/100 WBC (Bld) 0.3 % 0-1 [facility] CBC W/Diff, Automatedon 12-29 Absolute Lymph 1.92 X10 3/uL Normal 0.83-4.51 [facility] Comment on above: Performed By: #### L 500.2500, L501.4021, L100.0100 ####[facility] [address] [place], [address] Absolute Neut 7.7 X10 3/uL Normal 2.0-7.7 [facility] Comment on above: Performed By: #### L 500.2500, L501.4021, L100.0100 ####[facility] [address] [place], [address] Basophils/100 WBC (Bld) 0.3 % Normal 0-1 [facility] Comment on above: Performed By: #### L 500.2500, L501.4021, L100.0100 ####[facility] [address] [place], [address] Eosinophils/100 WBC (Bld) 1.6 % Normal 0-5 [facility] Comment on above: Performed By: #### L 500.2500, L501.4021, L100.0100 ####[facility] [address] [place], [address] Erythrocyte distribution width (RBC) [Ratio] 16.3 % High 11.6-14.6 [facility] Comment on above: Performed By: #### L 500.2500, L501.4021, L100.0100 ####[facility] [address] [place], [address] Hematocrit (Bld) [Volume fraction] 34.3 % Low 37-47 [facility] Comment on above: Performed By: #### L 500.2500, L501.4021, L100.0100 ####[facility] [address] [place], [address] Hemoglobin (Bld) [Mass/Vol] 11.0 g/dL Low 12.0-15.0 [facility] Comment on above: Performed By: #### L 500.2500, L501.4021, L100.0100 ####[facility] [address] [place], [address] IG% 0.400 Normal 0.0-0.9 [facility] Comment on above: Result Comment: IG% - Immature Granulocytes (promyelocytes, myelocytes andmetamyelocytes) > 1% indicates that a LEFT SHIFT is Present. Performed By: #### L 500.2500, L501.4021, L100.0100 ####[facility] [address] [place], [address] Lymphocytes/100 WBC (Bld) 18.1 % Low 19-41 [facility] Comment on above: Performed By: #### L 500.2500, L501.4021, L100.0100 ####[facility] [address] [place], [address] MCH (RBC) [Entitic mass] 27.8 pg Normal 27.0-32.0 [facility] Comment on above: Performed By: #### L 500.2500, L501.4021, L100.0100 ####[facility] [address] [place], [address] MCHC (RBC) [Mass/Vol] 32.1 g/dL Normal 32-36 [facility] Comment on above: Performed By: #### L 500.2500, L501.4021, L100.0100 ####[facility] [address] [place], [address] MCV (RBC) [Entitic vol] 86.6 fL Normal 81-99 [facility] Comment on above: Performed By: #### L 500.2500, L501.4021, L100.0100 ####[facility] [address] [place], [address] Monocytes/100 WBC (Bld) 6.9 % Normal 0-10 [facility] Comment on above: Performed By: #### L 500.2500, L501.4021, L100.0100 ####[facility] [address] [place], [address] Neutrophils/100 WBC (Bld) 72.7 % High 47-70 [facility] Comment on above: Performed By: #### L 500.2500, L501.4021, L100.0100 ####[facility] [address] [place], [address] Nucleated RBC (Bld) [#/Vol] 0 10*3/uL Normal 0-5 [facility] Comment on above: Performed By: #### L 500.2500, L501.4021, L100.0100 ####[facility] [address] [place], [address] Platelet mean volume (Bld) [Entitic vol] 10.5 fL Normal 6.2-12.0 [facility] Comment on above: Performed By: #### L 500.2500, L501.4021, L100.0100 ####[facility] [address] [place], [address] Platelets (Bld) [#/Vol] 256 10*3/uL Normal 150-450 [facility] Comment on above: Performed By: #### L 500.2500, L501.4021, L100.0100 ####[facility] [address] [place], [address] RBC (Bld) [#/Vol] 3.96 10*6/uL Low 4.2-5.4 [facility] Comment on above: Performed By: #### L 500.2500, L501.4021, L100.0100 ####[facility] [address] [place], [address] RDW SD 50.8 fl High 35.1-43.9 [facility] Comment on above: Performed By: #### L 500.2500, L501.4021, L100.0100 ####[facility] [address] [place], [address] WBC (Bld) [#/Vol] 10.6 10*3/uL Normal 4.4-11.0 [facility] Comment on above: Performed By: #### L 500.2500, L501.4021, L100.0100 ####[facility] [address] [place], [address] Carbon dioxide, total [Moles /volume] in Central venous bloodOrdered By: Jeevan Yoder on 01-15-2025 CO2 [Moles/Vol] 25.0 mmol/L 21.0-32.0 [facility] Chest PA and Lateralon 01-15 Chest PA and Lateral Normal [facility] Chloride assayOrdered By: Kenny Yoder on 01-15-2025 Chloride [Moles/Vol] 102 mmol/L 98-108 [facility] Emergency Department Summary on 01-15-2025 Emergency Department Summary Normal [facility] Eosinophil percentageOrdered By: Jeevan Yoder on 01-15-2025 Eosinophils/100 WBC (Bld) 1.6 % 0-5 [facility] Erythrocyte distribution wid th ratioOrdered By: Jeevan Yoder on 01-15-2025 Erythrocyte distribution width (RBC) [Ratio] 16.3 % High 11.6-14.6 [facility] Erythrocyte distribution wid th standard deviationOrdered By: Jeevan Yoder on 01-15-2025 Erythrocyte distribution width (RBC) [Ratio] 50.8 fl High 35.1-43.9 [facility] Glomerular filtration rate ( GFR) estimation/1.73 sq m using serum, plasma, or whole bOrdered By: Jeevan Yoder on 01-15-2025 GFR/1.73 sq M.predicted among non-blacks MDRD (S/P/Bld) [Vol rate/Area] 63 mL/min/{1.73_m2} >60 [facility] Comment on above: mL/min/1.73m2 CKD-EP I Creatinine Equation (2020) Hematocrit Auto (Bld) [Volum e fraction]Ordered By: Jeevan Yoder on 01-15-2025 Hematocrit (Bld) [Volume fraction] 34.3 % Low 37-47 [facility] Hemoglobin measurementOrdere d By: Jeevan Yoder on 01-15-2025 Hemoglobin (Bld) [Mass/Vol] 11.0 g/dL Low 12.0-15.0 [facility] Immature granulocytes/100 WB C Auto (Bld)Ordered By: Jeevan Yoder on 01-15-2025 Immature granulocytes/100 WBC (Bld) 0.400 % 0.0-0.9 [facility] Comment on above: IG% - Immature Granu locytes (promyelocytes, myelocytes and metamyelocytes) > 1% indicates that a LEFT SHIFT is Present. L499.0042on 01-15-2025 Trop T High Sen 46 ng/L High <=14 [facility] Comment on above: Performed By: #### L 499.0042 ####[facility] [address] [place], [address] L499.0043on 01-15-2025 Trop T High Sen Normal <=14 [facility] Comment on above: Result Comment: DEP ED Performed By: #### L 499.0043 ####[facility] [address] [place], [address] L501.4021on 01-15-2025 Trop T High Sen 46 ng/L High <=14 [facility] Comment on above: Performed By: #### L 500.2500, L501.4021, L100.0100 ####[facility] [address] [place], [address] L503.7505on 01-15-2025 Natriuretic peptide B (Bld) [Mass/Vol] 4224 pg/mL High <=1800 [facility] Comment on above: Result Comment: Hear t Failure Unlikely: < 300 pg/mLHeart Failure Likely< 50 Years: > 450 pg/mL50-75 Years: > 900 pg/mL>75 Years: > 1800 pg/mL Performed By: #### L 503.7505 ####[facility] [address] [place], [address] MCV (mean corpuscular volume ) determinationOrdered By: Jeevan Yoder on 01-15-2025 MCV (RBC) [Entitic vol] 86.6 fL 81-99 [facility] Mean corpuscular hemoglobin (MCH) determinationOrdered By: Jeevan Yoder on 01-15-2025 MCH (RBC) [Entitic mass] 27.8 pg 27.0-32.0 [facility] Mean corpuscular hemoglobin concentration (MCHC) determinationOrdered By: Jeevan Yoder on 01-15-2025 MCHC (RBC) [Mass/Vol] 32.1 g/dL 32-36 [facility] Mean platelet volume determi nationOrdered By: Jeevan Yoder on 01-15-2025 Platelet mean volume (Bld) [Entitic vol] 10.5 fL 6.2-12.0 [facility] Monocyte percentageOrdered B y: Jeevan Yoder on 01-15-2025 Monocytes/100 WBC (Bld) 6.9 % 0-10 [facility] Natriuretic peptide.B prohor hayley N-Terminal [Mass/volume] in Serum or PlasmaOrdered By: Jeevan Yoder on 01-15-2025 Natriuretic peptide.B prohormone N-Terminal [Mass/Vol] 4224 pg/mL High <1800 [facility] Comment on above: Heart Failure Unlike ly: < 300 pg/mLHeart Failure Likely< 50 Years: > 450 pg/mL50-75 Years: > 900 pg/mL>75 Years: > 1800 pg/mL Neutrophil percentageOrdered By: Jeevan Yoder on 01-15-2025 Neutrophils/100 WBC (Bld) 72.7 % High 47-70 [facility] Nucleated red blood cell per centageOrdered By: Jeevan Yoder on 01-15-2025 Nucleated RBC/100 WBC (Bld) [Ratio] 0 % 0-5 [facility] Platelet countOrdered By: Kenny Yoder on 01-15-2025 Platelets (Bld) [#/Vol] 256 10*3/uL 150-450 [facility] Potassium measurement (mass/ volume)Ordered By: Jeevan Yoder on 01-15-2025 Potassium (Unsp spec) [Mass/Vol] 3.7 mmol/L 3.3-5.1 [facility] RBC Auto (Bld) [#/Vol]Ordere d By: Jeevan Yoder on 01-15-2025 RBC (Bld) [#/Vol] 3.96 10*6/uL Low 4.2-5.4 [facility] Serum creatinine measurement (mass/volume)Ordered By: Jeevan Yoder on 01-15-2025 Creatinine [Mass/Vol] 0.92 mg/dL 0.70-1.20 [facility] Serum glucose measurement (m ass/volume)Ordered By: Jeevan Yoder on 01-15-2025 Glucose [Mass/Vol] 144 mg/dL High 70-99 [facility] Serum or plasma calcium melanie urement (mass/volume)Ordered By: Jeevan Yoder on 01-15-2025 Calcium [Mass/Vol] 9.6 mg/dL 7.6-11.0 [facility] Serum or plasma urea nitroge n measurement (mass/volume)Ordered By: Jeevan Yoder on 01-15-2025 Urea nitrogen [Mass/Vol] 15 mg/dL 4-19 [facility] Sodium levelOrdered By: Marcelino Yoder on 01-15-2025 Sodium [Moles/Vol] 138 mmol/L 133-145 [facility] Troponin T.cardiac [Mass/vol ume] in Serum or Plasma by High sensitivity methodOrdered By: Jeevan Yoder on 01-15-2025 Troponin T.cardiac High sensitivity method [Mass/Vol] 46 ng/L High <14 [facility] Troponin T.cardiac High sensitivity method [Mass/Vol] 46 ng/L High <14 [facility] White blood cell (WBC) count Ordered By: Jeevan Yoder on 01-15-2025 WBC (Bld) [#/Vol] 10.6 10*3/uL 4.4-11.0 [facility] 12 Lead EKGon 01-07-2025 12 Lead EKG Normal [facility] Absolute lymphocyte countOrd ered By: Ethan Darnell on 01-07-2025 Lymphocytes Auto (Unsp spec) [#/Vol] 2.89 10*3/uL 0.83-4.51 [facility] Absolute neutrophil countOrd ered By: Ethan Darnell on 01-07-2025 Neutrophils (Bld) [#/Vol] 5.3 10*3/uL 2.0-7.7 [facility] Anion gap in Serum or Plasma Ordered By: Ethan Darnell on 01-07-2025 Anion gap [Moles/Vol] 11 mmol/L 5-15 [facility] Automated lymphocyte count a s percentage of total leukocytesOrdered By: Ethan Darnell on 01-07-2025 Lymphocytes/100 WBC Auto (Unsp spec) 31.8 % [facility] BUN/creatinine ratioOrdered By: Ethan Darnell on 01-07-2025 Urea nitrogen/Creatinine [Mass ratio] 15.5 mg/mg - [facility] Basic Metabolic Profile (BMP )on 01-07-2025 BUN/CRE 15.5 RATIO Normal 06-19 [facility] Comment on above: Performed By: #### L 100.0100, L500.2500 ####[facility] [address] [place], [address] Calcium [Mass/Vol] 10.3 mg/dL Normal 7.6-11.0 [facility] Comment on above: Performed By: #### L 100.0100, L500.2500 ####[facility] [address] [place], [address] Chloride [Moles/Vol] 99 mmol/L Normal 98-108 [facility] Comment on above: Performed By: #### L 100.0100, L500.2500 ####[facility] [address] [place], [address] CO2 [Moles/Vol] 22.5 mmol/L Normal 21.0-32.0 [facility] Comment on above: Performed By: #### L 100.0100, L500.2500 ####[facility] [address] [place], [address] Creatinine [Mass/Vol] 0.90 mg/dL Normal 0.70-1.20 [facility] Comment on above: Performed By: #### L 100.0100, L500.2500 ####[facility] [address] [place], [address] ECRCL 49.31 ml/min Low 50-250 [facility] Comment on above: Performed By: #### L 100.0100, L500.2500 ####[facility] [address] [place], [address] GAP 11 Normal 5-15 [facility] Comment on above: Performed By: #### L 100.0100, L500.2500 ####[facility] [address] [place], [address] GFR/1.73 sq M.predicted among non-blacks MDRD (S/P/Bld) [Vol rate/Area] 64 mL/min/{1.73_m2} Normal >60 [facility] Comment on above: Result Comment: mL/m in/1.73m2 CKD-EPI Creatinine Equation (2020) Performed By: #### L 100.0100, L500.2500 ####[facility] [address] [place], [address] Glucose [Mass/Vol] 321 mg/dL High 70-99 [facility] Comment on above: Performed By: #### L 100.0100, L500.2500 ####[facility] [address] [place], [address] Potassium [Moles/Vol] 3.8 mmol/L Normal 3.3-5.1 [facility] Comment on above: Result Comment: Hemo lysis present, Results??could be affected.?? Performed By: #### L 100.0100, L500.2500 ####[facility] [address] [place], [address] Sodium [Moles/Vol] 133 mmol/L Normal 133-145 [facility] Comment on above: Performed By: #### L 100.0100, L500.2500 ####[facility] [address] [place], [address] Urea nitrogen [Mass/Vol] 14 mg/dL Normal 4-19 [facility] Comment on above: Performed By: #### L 100.0100, L500.2500 ####[facility] [address] [place], [address] Basophil percentageOrdered B y: Ethan Darnell on 01-07-2025 Basophils/100 WBC (Bld) 0.5 % 0-1 [facility] Bedside Glucoseon 01-07-2025 FINGERSTICK GLU 316 mg/dL High 74-106 [facility] Comment on above: Result Comment: KATARINA GARY OF PATIENT CARE PER NURSING PROTOCOL Performed By: #### L 501.080 ####[facility] [address] [place], [address] CBC W/Diff, Automatedon 12-29-2024 Absolute Lymph 2.89 X10 3/uL Normal 0.83-4.51 [facility] Comment on above: Performed By: #### L 100.0100, L500.2500 ####[facility] [address] [place], [address] Absolute Neut 5.3 X10 3/uL Normal 2.0-7.7 [facility] Comment on above: Performed By: #### L 100.0100, L500.2500 ####[facility] [address] [place], [address] Basophils/100 WBC (Bld) 0.5 % Normal 0-1 [facility] Comment on above: Performed By: #### L 100.0100, L500.2500 ####[facility] [address] [place], [address] Eosinophils/100 WBC (Bld) 1.9 % Normal 0-5 [facility] Comment on above: Performed By: #### L 100.0100, L500.2500 ####[facility] [address] [place], [address] Erythrocyte distribution width (RBC) [Ratio] 15.7 % High 11.6-14.6 [facility] Comment on above: Performed By: #### L 100.0100, L500.2500 ####[facility] [address] [place], [address] Hematocrit (Bld) [Volume fraction] 34.0 % Low 37-47 [facility] Comment on above: Performed By: #### L 100.0100, L500.2500 ####[facility] [address] [place], [address] Hemoglobin (Bld) [Mass/Vol] 10.5 g/dL Low 12.0-15.0 [facility] Comment on above: Performed By: #### L 100.0100, L500.2500 ####[facility] [address] [place], [address] IG% 0.200 Normal 0.0-0.9 [facility] Comment on above: Result Comment: IG% - Immature Granulocytes (promyelocytes, myelocytes andmetamyelocytes) > 1% indicates that a LEFT SHIFT is Present. Performed By: #### L 100.0100, L500.2500 ####[facility] [address] [place], [address] Lymphocytes/100 WBC (Bld) 31.8 % Normal 19-41 [facility] Comment on above: Performed By: #### L 100.0100, L500.2500 ####[facility] [address] [place], [address] MCH (RBC) [Entitic mass] 26.9 pg Low 27.0-32.0 [facility] Comment on above: Performed By: #### L 100.0100, L500.2500 ####[facility] [address] [place], [address] MCHC (RBC) [Mass/Vol] 30.9 g/dL Low 32-36 [facility] Comment on above: Performed By: #### L 100.0100, L500.2500 ####[facility] [address] [place], [address] MCV (RBC) [Entitic vol] 87.0 fL Normal 81-99 [facility] Comment on above: Performed By: #### L 100.0100, L500.2500 ####[facility] [address] [place], [address] Monocytes/100 WBC (Bld) 7.6 % Normal 0-10 [facility] Comment on above: Performed By: #### L 100.0100, L500.2500 ####[facility] [address] [place], [address] Neutrophils/100 WBC (Bld) 58.0 % Normal 47-70 [facility] Comment on above: Performed By: #### L 100.0100, L500.2500 ####[facility] [address] [place], [address] Nucleated RBC (Bld) [#/Vol] 0 10*3/uL Normal 0-5 [facility] Comment on above: Performed By: #### L 100.0100, L500.2500 ####[facility] [address] [place], [address] Platelet mean volume (Bld) [Entitic vol] 11.1 fL Normal 6.2-12.0 [facility] Comment on above: Performed By: #### L 100.0100, L500.2500 ####[facility] [address] [place], [address] Platelets (Bld) [#/Vol] 237 10*3/uL Normal 150-450 [facility] Comment on above: Performed By: #### L 100.0100, L500.2500 ####[facility] [address] [place], [address] RBC (Bld) [#/Vol] 3.91 10*6/uL Low 4.2-5.4 [facility] Comment on above: Performed By: #### L 100.0100, L500.2500 ####[facility] [address] [place], [address] RDW SD 49.4 fl High 35.1-43.9 [facility] Comment on above: Performed By: #### L 100.0100, L500.2500 ####[facility] [address] [place], [address] WBC (Bld) [#/Vol] 9.1 10*3/uL Normal 4.4-11.0 [facility] Comment on above: Performed By: #### L 100.0100, L500.2500 ####[facility] [address] [place], [address] Carbon dioxide, total [Moles /volume] in Central venous bloodOrdered By: Ethan Darnell on 01-07-2025 CO2 [Moles/Vol] 22.5 mmol/L 21.0-32.0 [facility] Chest PA and Lateralon 01-07 Chest PA and Lateral Normal [facility] Chloride assayOrdered By: Albaro Darnell on 01-07-2025 Chloride [Moles/Vol] 99 mmol/L 98-108 [facility] Emergency Department Summary on 01-07-2025 Emergency Department Summary Normal [facility] Eosinophil percentageOrdered By: Ethan Darnell on 01-07-2025 Eosinophils/100 WBC (Bld) 1.9 % 0-5 [facility] Erythrocyte distribution wid th ratioOrdered By: Ethan Darnell on 01-07-2025 Erythrocyte distribution width (RBC) [Ratio] 15.7 % High 11.6-14.6 [facility] Erythrocyte distribution wid th standard deviationOrdered By: Ethan Darnell on 01-07-2025 Erythrocyte distribution width (RBC) [Ratio] 49.4 fl High 35.1-43.9 [facility] Glomerular filtration rate ( GFR) estimation/1.73 sq m using serum, plasma, or whole bOrdered By: Ethan Darnell on 01-07-2025 GFR/1.73 sq M.predicted among non-blacks MDRD (S/P/Bld) [Vol rate/Area] 64 mL/min/{1.73_m2} >60 [facility] Comment on above: mL/min/1.73m2 CKD-EP I Creatinine Equation (2020) Glucose measurement at bedsi deOrdered By: Ethan Darnell on 01-07-2025 Glucose [Mass/Vol] 316 mg/dL High 74-106 [facility] Comment on above: MANAGEMENT OF PATIEN T CARE PER NURSING PROTOCOL Hematocrit Auto (Bld) [Volum e fraction]Ordered By: Ethan Darnell on 01-07-2025 Hematocrit (Bld) [Volume fraction] 34.0 % Low 37-47 [facility] Hemoglobin measurementOrdere d By: Ethan Darnell on 01-07-2025 Hemoglobin (Bld) [Mass/Vol] 10.5 g/dL Low 12.0-15.0 [facility] Immature granulocytes/100 WB C Auto (Bld)Ordered By: Ethan Darnell on 01-07-2025 Immature granulocytes/100 WBC (Bld) 0.200 % 0.0-0.9 [facility] Comment on above: IG% - Immature Granu locytes (promyelocytes, myelocytes and metamyelocytes) > 1% indicates that a LEFT SHIFT is Present. Influenza virus A and B and SARS-CoV-2 (COVID-19) and Respiratory syncytial virus RNAOrdered By: Ethan Darnell on 01-07-2025 SARS-CoV-2 (COVID-19) RNA BEBETO+probe Ql (Unsp spec) [facility] M100.678on 01-07-2025 M100.678 SARS-CoV-2 (COVID 19 ) Negative INFLUENZA A Negative INFLUENZA B Negative RSV PCR Negative Normal [facility] Comment on above: Performed By: #### M 100.678 ####[facility] [address] [place], [address] MCV (mean corpuscular volume ) determinationOrdered By: Ethan Darnell on 01-07-2025 MCV (RBC) [Entitic vol] 87.0 fL 81-99 [facility] Mean corpuscular hemoglobin (MCH) determinationOrdered By: Ethan Darnell on 01-07-2025 MCH (RBC) [Entitic mass] 26.9 pg Low 27.0-32.0 [facility] Mean corpuscular hemoglobin concentration (MCHC) determinationOrdered By: Ethan Darnell on 01-07-2025 MCHC (RBC) [Mass/Vol] 30.9 g/dL Low 32-36 [facility] Mean platelet volume determi nationOrdered By: Ethan Darnell on 01-07-2025 Platelet mean volume (Bld) [Entitic vol] 11.1 fL 6.2-12.0 [facility] Monocyte percentageOrdered B y: Ethan Darnell on 01-07-2025 Monocytes/100 WBC (Bld) 7.6 % 0-10 [facility] Neutrophil percentageOrdered By: Ethan Darnell on 01-07-2025 Neutrophils/100 WBC (Bld) 58.0 % 47-70 [facility] Nucleated red blood cell per centageOrdered By: Ethan Darnell on 01-07-2025 Nucleated RBC/100 WBC (Bld) [Ratio] 0 % 0-5 [facility] Platelet countOrdered By: Albaro Darnell on 01-07-2025 Platelets (Bld) [#/Vol] 237 10*3/uL 150-450 [facility] Potassium measurement (mass/ volume)Ordered By: Ethan Darnell on 01-07-2025 Potassium (Unsp spec) [Mass/Vol] 3.8 mmol/L 3.3-5.1 [facility] Comment on above: Hemolysis present, R esults could be affected. RBC Auto (Bld) [#/Vol]Ordere d By: Ethan Darnell on 01-07-2025 RBC (Bld) [#/Vol] 3.91 10*6/uL Low 4.2-5.4 [facility] Serum creatinine measurement (mass/volume)Ordered By: Ethan Darnell on 01-07-2025 Creatinine [Mass/Vol] 0.90 mg/dL 0.70-1.20 [facility] Serum glucose measurement (m ass/volume)Ordered By: Ethan Darnell on 01-07-2025 Glucose [Mass/Vol] 321 mg/dL High 70-99 [facility] Serum or plasma calcium melanie urement (mass/volume)Ordered By: Ethan Darnell on 01-07-2025 Calcium [Mass/Vol] 10.3 mg/dL 7.6-11.0 [facility] Serum or plasma urea nitroge n measurement (mass/volume)Ordered By: Ethan Darnell on 01-07-2025 Urea nitrogen [Mass/Vol] 14 mg/dL 4-19 [facility] Sodium levelOrdered By: Ethan Darnell on 01-07-2025 Sodium [Moles/Vol] 133 mmol/L 133-145 [facility] White blood cell (WBC) count Ordered By: Ethan Darnell on 01-07-2025 WBC (Bld) [#/Vol] 9.1 10*3/uL 4.4-11.0 [facility] Inital Evaluation (1) - PTon 10-13-2024 Inital Evaluation (1) - PT Normal [facility] Albumin to globulin ratioOrd ered By: Ramone Smiley on 09-27-2024 Albumin/Globulin [Mass ratio] 0.6 {ratio} Low 0.9-2.4 [facility] Bilirubin, totalOrdered By: Ramone Smiley on 09-27-2024 Bilirubin [Mass/Vol] 0.20 mg/dL 0.20-1.00 [facility] Comment on above: For patients on eltr ombopag therapy, use of Dimension Vol[place] TBIL is not recommended. Blood urea nitrogen (BUN)/cr eatinine ratioOrdered By: Ramone Smiley on 09-27-2024 Urea nitrogen/Creatinine [Mass ratio] 12.7 mg/mg 10-20 [facility] CBC-Complete Blood Cnt No Di ffon 09-27-2024 Erythrocyte distribution width (RBC) [Ratio] 15.9 % High 11.6-14.6 [facility] Comment on above: Order Comment: Order Date: 09/27/24Order Info: [id number] - CBC Performed By: #### L 100.0500, L500.4050 ####[facility] [address] [place], [place], [id number] Hematocrit (Bld) [Volume fraction] 35.7 % Low 37-47 [facility] Comment on above: Order Comment: Order Date: 09/27/24Order Info: [id number] - CBC Performed By: #### L 100.0500, L500.4050 ####[facility] [address] [place], [address] Hemoglobin (Bld) [Mass/Vol] 11.0 g/dL Low 12.0-15.0 [facility] Comment on above: Order Comment: Order Date: 09/27/24Order Info: [id number] - CBC Performed By: #### L 100.0500, L500.4050 ####[facility] [address] [place], [address] MCH (RBC) [Entitic mass] 25.8 pg Low 27.0-32.0 [facility] Comment on above: Order Comment: Order Date: 09/27/24Order Info: [id number] - CBC Performed By: #### L 100.0500, L500.4050 ####[facility] [address] [place], [address] MCHC (RBC) [Mass/Vol] 30.8 g/dL Low 32-36 [facility] Comment on above: Order Comment: Order Date: 09/27/24Order Info: [id number] - CBC Performed By: #### L 100.0500, L500.4050 ####[facility] [address] [place], [address] MCV (RBC) [Entitic vol] 83.6 fL Normal 81-99 [facility] [facility] Comment on above: Order Comment: Order Date: 09/27/24Order Info: [id number] - CBC Performed By: #### L 100.0500, L500.4050 ####[facility] [address] [place], [address] Platelet mean volume (Bld) [Entitic vol] 11.3 fL Normal 6.2-12.0 [facility] Comment on above: Order Comment: Order Date: 09/27/24Order Info: [id number] - CBC Performed By: #### L 100.0500, L500.4050 ####[facility] [address] [place], [address] Platelets (Bld) [#/Vol] 287 10*3/uL Normal 150-450 [facility] Comment on above: Order Comment: Order Date: 09/27/24Order Info: [id number] - CBC Performed By: #### L 100.0500, L500.4050 ####[facility] [address] [place], [address] RBC (Bld) [#/Vol] 4.27 10*6/uL Normal 4.2-5.4 [facility] Comment on above: Order Comment: Order Date: 09/27/24Order Info: [id number] - CBC Performed By: #### L 100.0500, L500.4050 ####[facility] [address] [place], [address] RDW SD 47.4 fl High 35.1-43.9 [facility] Comment on above: Order Comment: Order Date: 09/27/24Order Info: [id number] - CBC Performed By: #### L 100.0500, L500.4050 ####[facility] [address] [place], [address] WBC (Bld) [#/Vol] 8.6 10*3/uL Normal 4.4-11.0 [facility] Comment on above: Order Comment: Order Date: 09/27/24Order Info: [id number] - CBC Performed By: #### L 100.0500, L500.4050 ####[facility] [address] [place], [address] Carbon dioxide measurementOr dered By: Ramone Smiley on 09-27-2024 CO2 [Moles/Vol] 28.0 mmol/L 21.0-32.0 [facility] Chloride measurementOrdered By: Ramone Smiley on 09-27-2024 Chloride [Moles/Vol] 101 mmol/L 98-107 [facility] Comprehensive Metabolic Prof ilon 09-27-2024 Albumin [Mass/Vol] 3.0 g/dL Low 3.2-5.0 [facility] Comment on above: Order Comment: Order Date: 09/27/24Order Info: [id number] - CMPOrder Info: [id number] - CRE Performed By: #### L 100.0500, L500.4050 ####[facility] [address] [place], [address] Albumin/Globulin [Mass ratio] 0.6 {ratio} Low 0.9-2.4 [facility] Comment on above: Order Comment: Order Date: 09/27/24Order Info: [id number] - CMPOrder Info: [id number] - CRE Performed By: #### L 100.0500, L500.4050 ####[facility] [address] [place], [address] ALK P 145 U/L High 45-117 [facility] Comment on above: Order Comment: Order Date: 09/27/24Order Info: [id number]- - CMPOrder Info: [id number] - CRE Performed By: #### L 100.0500, L500.4050 ####[facility] [address] [place], [address] ALT [Catalytic activity/Vol] 16 U/L Normal 13-56 [facility] Comment on above: Order Comment: Order Date: 09/27/24Order Info: [id number] - CMPOrder Info: [id number] - CRE Performed By: #### L 100.0500, L500.4050 ####[facility] [address] [place], [address] AST [Catalytic activity/Vol] 16 U/L Normal 15-37 [facility] Comment on above: Order Comment: Order Date: 09/27/24Order Info: [id number] - CMPOrder Info: [id number] - CRE Performed By: #### L 100.0500, L500.4050 ####[facility] [address] [place], [address] Bilirubin [Mass/Vol] 0.20 mg/dL Normal 0.20-1.00 [facility] Comment on above: Order Comment: Order Date: 09/27/24Order Info: [id number] - CMPOrder Info: [id number] - CRE Result Comment: For patients on eltrombopag therapy, use of Dimension Volga TBIL is not recommended. Performed By: #### L 100.0500, L500.4050 ####[facility] [address] [place], [address] BUN/CRE 12.7 RATIO Normal 10-20 [facility] Comment on above: Order Comment: Order Date: 09/27/24Order Info: [id number] - CMPOrder Info: [id number] - CRE Performed By: #### L 100.0500, L500.4050 ####[facility] [address] [place], [address] CA,Total 11.0 mg/dL High 8.5-10.1 [facility] Comment on above: Order Comment: Order Date: 09/27/24Order Info: [id number] - CMPOrder Info: [id number] - CRE Performed By: #### L 100.0500, L500.4050 ####[facility] [address] [place], [address] Chloride [Moles/Vol] 101 mmol/L Normal 98-107 [facility] Comment on above: Order Comment: Order Date: 09/27/24Order Info: [id number] - CMPOrder Info: [id number] - CRE Performed By: #### L 100.0500, L500.4050 ####[facility] [address] [place], [address] CO2 [Moles/Vol] 28.0 mmol/L Normal 21.0-32.0 [facility] Comment on above: Order Comment: Order Date: 09/27/24Order Info: [id number] - CMPOrder Info: [id number] - CRE Performed By: #### L 100.0500, L500.4050 ####[facility] [address] [place], [address] Creatinine [Mass/Vol] 0.86 mg/dL Normal 0.55-1.02 [facility] Comment on above: Order Comment: Order Date: 09/27/24Order Info: [id number] - CMPOrder Info: [id number] - CRE Result Comment: The validity of the calculated GFR GFRAA in patients over70 years has not been determined. Clinical correlation isessential. Performed By: #### L 100.0500, L500.4050 ####[facility] [address] [place], [address] EST GFR - AA 81 mL/min Normal >60 [facility] Comment on above: Order Comment: Order Date: 09/27/24Order Info: [id number] - CMPOrder Info: [id number]- - CRE Result Comment: Afri can [place] GFR Calc Performed By: #### L 100.0500, L500.4050 ####[facility] [address] [place], [address] GAP 8 Normal 5-15 [facility] Comment on above: Order Comment: Order Date: 09/27/24Order Info: [id number] - CMPOrder Info: 014- - CRE Performed By: #### L 100.0500, L500.4050 ####[facility] [address] [place], [address] GFR/1.73 sq M.predicted among non-blacks MDRD (S/P/Bld) [Vol rate/Area] 67 mL/min/{1.73_m2} Normal >60 [facility] Comment on above: Order Comment: Order Date: 09/27/24Order Info: [id number] - CMPOrder Info: [id number] - CRE Result Comment: Non- GFR Calc Performed By: #### L 100.0500, L500.4050 ####[facility] [address] [place], [address] Globulin (S) [Mass/Vol] 5.0 g/dL High 2.2-4.2 [facility] Comment on above: Order Comment: Order Date: 09/27/24Order Info: [id number] - CMPOrder Info: 144- - CRE Performed By: #### L 100.0500, L500.4050 ####[facility] [address] [place], [address] Glucose [Mass/Vol] 144 mg/dL High 74-106 [facility] Comment on above: Order Comment: Order Date: 09/27/24Order Info: 07- - CMPOrder Info: 144- - CRE Result Comment: Fast ing Glucose result greater than or equal to 126 mg/dLsuggests DIABETES MELLITUS per A.D.A. criteria. Performed By: #### L 100.0500, L500.4050 ####[facility] [address] [place], [address] Potassium [Moles/Vol] 3.5 mmol/L Normal 3.5-5.1 [facility] Comment on above: Order Comment: Order Date: 09/27/24Order Info: [id number] - CMPOrder Info: [id number] - CRE Performed By: #### L 100.0500, L500.4050 ####[facility] [address] [place], [address] Sodium [Moles/Vol] 138 mmol/L Normal 136-145 [facility] Comment on above: Order Comment: Order Date: 09/27/24Order Info: 0786- - CMPOrder Info: 144- - CRE Performed By: #### L 100.0500, L500.4050 ####[facility] [address] [place], [address] T PROT 8.0 g/dL Normal 6.4-8.2 [facility] Comment on above: Order Comment: Order Date: 09/27/24Order Info: [id number] - CMPOrder Info: [id number] - CRE Performed By: #### L 100.0500, L500.4050 ####[facility] [address] [place], [place], [id number] Urea nitrogen [Mass/Vol] 11 mg/dL Normal 7-18 [facility] Comment on above: Order Comment: Order Date: 09/27/24Order Info: [id number] - CMPOrder Info: [id number] - CRE Performed By: #### L 100.0500, L500.4050 ####[facility] [address] [place], [place], [address] Erythrocyte distribution wid th ratioOrdered By: Ramone Smiley on 09-27-2024 Erythrocyte distribution width (RBC) [Ratio] 15.9 % High 11.6-14.6 [facility] Erythrocyte distribution wid th standard deviationOrdered By: Ramone Smiley on 09-27-2024 Erythrocyte distribution width (RBC) [Ratio] 47.4 fl High 35.1-43.9 [facility] Glomerular filtration rate ( GFR) estimationOrdered By: Ramone Smiley on 09-27-2024 GFR/1.73 sq M.predicted among non-blacks MDRD (S/P/Bld) [Vol rate/Area] 67 mL/min/{1.73_m2} >60 [facility] Comment on above: Non- GFR Calc Glucose measurementOrdered B y: Ramone Smiley on 09-27-2024 Glucose [Mass/Vol] 144 mg/dL High 74-106 [facility] Comment on above: Fasting Glucose resu lt greater than or equal to 126 mg/dL suggests DIABETES MELLITUS per A.D.A. criteria. Hematocrit Auto (Bld) [Volum e fraction]Ordered By: Ramone Smiley on 09-27-2024 Hematocrit (Bld) [Volume fraction] 35.7 % Low 37-47 [facility] Hemoglobin measurementOrdere d By: Ramone Smiley on 09-27-2024 Hemoglobin (Bld) [Mass/Vol] 11.0 g/dL Low 12.0-15.0 [facility] Laboratory - Chemistry and C hemistry - challengeOrdered By: Ramone Smiley on 09-27-2024 AST [Catalytic activity/Vol] 16 U/L [facility] MCV (mean corpuscular volume ) determinationOrdered By: Ramone Smiley on 09-27-2024 MCV (RBC) [Entitic vol] 83.6 fL 81-99 [facility] Mean corpuscular hemoglobin (MCH) determinationOrdered By: Ramone Smiley on 09-27-2024 MCH (RBC) [Entitic mass] 25.8 pg Low 27.0-32.0 [facility] Mean corpuscular hemoglobin concentration (MCHC) determinationOrdered By: Ramone Smiley on 09-27-2024 MCHC (RBC) [Mass/Vol] 30.8 g/dL Low 32-36 [facility] Mean platelet volume determi nationOrdered By: Ramone Smiley on 09-27-2024 Platelet mean volume (Bld) [Entitic vol] 11.3 fL 6.2-12.0 [facility] No Panel InformationOrdered By: Ramone Smiley on 09-27-2024 16 U/L [facility] Platelet countOrdered By: Richar Smiley on 09-27-2024 Platelets (Bld) [#/Vol] 287 10*3/uL 150-450 [facility] Potassium measurementOrdered By: Ramone Smiley on 09-27-2024 Potassium [Moles/Vol] 3.5 mmol/L 3.5-5.1 [facility] RBC Auto (Bld) [#/Vol]Ordere d By: Ramone Smiley on 09-27-2024 RBC (Bld) [#/Vol] 4.27 10*6/uL 4.2-5.4 [facility] Serum anion gap measurementO rdered By: Ramone Smiley on 09-27-2024 Anion gap [Moles/Vol] 8 mmol/L 5-15 [facility] Serum globulin measurementOr dered By: Ramone Smiley on 09-27-2024 Globulin (S) [Mass/Vol] 5.0 g/dL High 2.2-4.2 [facility] Serum or plasma alanine kelley otransferase (ALT) measurementOrdered By: Ramone Smiley on 09-27-2024 ALT [Catalytic activity/Vol] 16 U/L 13-56 [facility] Serum or plasma albumin melanie urement (mass/volume)Ordered By: Ramone Smiley on 09-27-2024 Albumin [Mass/Vol] 3.0 g/dL Low 3.2-5.0 [facility] Serum or plasma alkaline lissa sphatase measurementOrdered By: Ramone Smiley on 09-27-2024 ALP [Catalytic activity/Vol] 145 U/L High 45-117 [facility] Serum or plasma calcium melanie urement (mass/volume)Ordered By: Ramone Smiley on 09-27-2024 Calcium [Mass/Vol] 11.0 mg/dL High 8.5-10.1 [facility] Serum or plasma creatinine m easurement (mass/volume)Ordered By: Ramone Smiley on 09-27-2024 Creatinine [Mass/Vol] 0.86 mg/dL 0.55-1.02 [facility] Comment on above: The validity of the calculated GFR & GFRAA in patients over 70 years has not been determined. Clinical correlation is essential. Serum or plasma urea nitroge n measurement (mass/volume)Ordered By: Ramone Smliey on 09-27-2024 Urea nitrogen [Mass/Vol] 11 mg/dL 7-18 [facility] Sodium levelOrdered By: Ramone Smiley on 09-27-2024 Sodium [Moles/Vol] 138 mmol/L 136-145 [facility] Total proteinOrdered By: Lilliam Smiley on 09-27-2024 Protein [Mass/Vol] 8.0 g/dL 6.4-8.2 [facility] White blood cell (WBC) count Ordered By: Ramone Smiley on 09-27-2024 WBC (Bld) [#/Vol] 8.6 10*3/uL 4.4-11.0 [facility] Kidney and Bladderon 0[address] [facility] BNP,B-Type NATRIURETIC PEPTI Ishaan 06-19-2024 Natriuretic peptide B (Bld) [Mass/Vol] 81.6 pg/mL Normal 0-100 [facility] Comment on above: Performed By: #### L 100.0100, L500.2500, L503.6620 ####[facility] [address] [place], [address] Basic Metabolic Profile (BMP )on 06-19-2024 BUN/CRE 9.3 RATIO Low 06-19 [facility] Comment on above: Performed By: #### L 100.0100, L500.2500, L503.6620 ####[facility] [address] [place], [address] CA,Total 11.0 mg/dL High 8.5-10.1 [facility] Comment on above: Performed By: #### L 100.0100, L500.2500, L503.6620 ####[facility] [address] [place], [address] Chloride [Moles/Vol] 104 mmol/L Normal 98-107 [facility] Comment on above: Performed By: #### L 100.0100, L500.2500, L503.6620 ####[facility] [address] [place], [address] CO2 [Moles/Vol] 26.0 mmol/L Normal 21.0-32.0 [facility] Comment on above: Performed By: #### L 100.0100, L500.2500, L503.6620 ####[facility] [address] [place], [address] Creatinine [Mass/Vol] 1.08 mg/dL High 0.55-1.02 [facility] Comment on above: Result Comment: The validity of the calculated GFR GFRAA in patients over70 years has not been determined. Clinical correlation isessential. Performed By: #### L 100.0100, L500.2500, L503.6620 ####[facility] [address] [place], [address] EST GFR - AA 63 mL/min Normal >60 [facility] Comment on above: Result Comment: Afri can [place] GFR Calc Performed By: #### L 100.0100, L500.2500, L503.6620 ####[facility] [address] [place], [address] GAP 6 Normal 5-15 [facility] Comment on above: Performed By: #### L 100.0100, L500.2500, L503.6620 ####[facility] [address] [place], [address] GFR/1.73 sq M.predicted among non-blacks MDRD (S/P/Bld) [Vol rate/Area] 52 mL/min/{1.73_m2} Low >60 [facility] Comment on above: Result Comment: Non- GFR Calc Performed By: #### L 100.0100, L500.2500, L503.6620 ####[facility] [address] [place], [address] Glucose [Mass/Vol] 263 mg/dL High 74-106 [facility] Comment on above: Result Comment: Gluc ose result greater than or equal to 200 mg/dLsuggests DIABETES MELLITUS per A.D.A. criteria. Performed By: #### L 100.0100, L500.2500, L503.6620 ####[facility] [address] [place], [address] Potassium [Moles/Vol] 4.4 mmol/L Normal 3.5-5.1 [facility] Comment on above: Performed By: #### L 100.0100, L500.2500, L503.6620 ####[facility] [address] [place], [address] Sodium [Moles/Vol] 137 mmol/L Normal 136-145 [facility] Comment on above: Performed By: #### L 100.0100, L500.2500, L503.6620 ####[facility] [address] [place], [address] Urea nitrogen [Mass/Vol] 10 mg/dL Normal 7-18 [facility] Comment on above: Performed By: #### L 100.0100, L500.2500, L503.6620 ####[facility] [address] [place], [address] CBC W/Diff, Automatedon 10-2 0-2024 Absolute Lymph 2.32 X10 3/uL Normal 0.83-4.51 [facility] Comment on above: Performed By: #### L 100.0100, L500.2500, L503.6620 ####[facility] [address] [place], [address] Absolute Neut 4.7 X10 3/uL Normal 2.0-7.7 [facility] Comment on above: Performed By: #### L 100.0100, L500.2500, L503.6620 ####[facility] [address] [place], [address] Basophils/100 WBC (Bld) 0.5 % Normal 0-1 [facility] Comment on above: Performed By: #### L 100.0100, L500.2500, L503.6620 ####[facility] [address] [place], [address] Eosinophils/100 WBC (Bld) 8.7 % High 0-5 [facility] Comment on above: Performed By: #### L 100.0100, L500.2500, L503.6620 ####[facility] [address] [place], [address] Erythrocyte distribution width (RBC) [Ratio] 16.6 % High 11.6-14.6 [facility] Comment on above: Performed By: #### L 100.0100, L500.2500, L503.6620 ####[facility] [address] [place], [address] Hematocrit (Bld) [Volume fraction] 36.6 % Low 37-47 [facility] Comment on above: Performed By: #### L 100.0100, L500.2500, L503.6620 ####[facility] [address] [place], [address] Hemoglobin (Bld) [Mass/Vol] 11.2 g/dL Low 12.0-15.0 [facility] Comment on above: Performed By: #### L 100.0100, L500.2500, L503.6620 ####[facility] [address] [place], [address] IG% 0.200 Normal 0.0-0.9 [facility] Comment on above: Result Comment: IG% - Immature Granulocytes (promyelocytes, myelocytes andmetamyelocytes) > 1% indicates that a LEFT SHIFT is Present. Performed By: #### L 100.0100, L500.2500, L503.6620 ####[facility] [address] [place], [address] Lymphocytes/100 WBC (Bld) 27.7 % Normal 19-41 [facility] Comment on above: Performed By: #### L 100.0100, L500.2500, L503.6620 ####[facility] [address] [place], [address] MCH (RBC) [Entitic mass] 25.6 pg Low 27.0-32.0 [facility] Comment on above: Performed By: #### L 100.0100, L500.2500, L503.6620 ####[facility] [address] [place], [address] MCHC (RBC) [Mass/Vol] 30.6 g/dL Low 32-36 [facility] Comment on above: Performed By: #### L 100.0100, L500.2500, L503.6620 ####[facility] [address] [place], [address] MCV (RBC) [Entitic vol] 83.8 fL Normal 81-99 [facility] Comment on above: Performed By: #### L 100.0100, L500.2500, L503.6620 ####[facility] [address] [place], [address] Monocytes/100 WBC (Bld) 6.7 % Normal 0-10 [facility] Comment on above: Performed By: #### L 100.0100, L500.2500, L503.6620 ####[facility] [address] [place], [address] Neutrophils/100 WBC (Bld) 56.2 % Normal 47-70 [facility] Comment on above: Performed By: #### L 100.0100, L500.2500, L503.6620 ####[facility] [address] [place], [address] Nucleated RBC (Bld) [#/Vol] 0 10*3/uL Normal 0-5 [facility] Comment on above: Performed By: #### L 100.0100, L500.2500, L503.6620 ####[facility] [address] [place], [address] Platelet mean volume (Bld) [Entitic vol] 10.4 fL Normal 6.2-12.0 [facility] Comment on above: Performed By: #### L 100.0100, L500.2500, L503.6620 ####[facility] [address] [place], [address] Platelets (Bld) [#/Vol] 234 10*3/uL Normal 150-450 [facility] Comment on above: Performed By: #### L 100.0100, L500.2500, L503.6620 ####[facility] [address] [place], [address] RBC (Bld) [#/Vol] 4.37 10*6/uL Normal 4.2-5.4 [facility] Comment on above: Performed By: #### L 100.0100, L500.2500, L503.6620 ####[facility] [address] [place], [address] RDW SD 50.9 fl High 35.1-43.9 [facility] Comment on above: Performed By: #### L 100.0100, L500.2500, L503.6620 ####[facility] [address] [place], [address] WBC (Bld) [#/Vol] 8.4 10*3/uL Normal 4.4-11.0 [facility] Comment on above: Performed By: #### L 100.0100, L500.2500, L503.6620 ####[facility] [address] [place], [address] Chest 1 View (Portable)on Chest 1 View (Portable) Normal [facility] Emergency Department Summary on 06-19-2024 Emergency Department Summary Normal [facility] 12 Lead EKGon 05-30-2024 12 Lead EKG Normal [facility] BNP,B-Type NATRIURETIC PEPTI Ishaan 05-30-2024 Natriuretic peptide B (Bld) [Mass/Vol] 108.0 pg/mL High 0-100 [facility] Comment on above: Performed By: #### L 100.0100, L501.4020, L503.6620, L500.2500 ####[facility] [address] [place], [address] Basic Metabolic Profile (BMP )on 05-30-2024 BUN/CRE 12.8 RATIO Normal 06-19 [facility] Comment on above: Order Comment: 'TROP ' Serial specimen #1, #2 or #3: 1 Performed By: #### L 100.0100, L501.4020, L503.6620, L500.2500 ####[facility] [address] [place], [address] CA,Total 11.4 mg/dL High 8.5-10.1 [facility] Comment on above: Order Comment: 'TROP ' Serial specimen #1, #2 or #3: 1 Performed By: #### L 100.0100, L501.4020, L503.6620, L500.2500 ####[facility] [address] [place], [address] Chloride [Moles/Vol] 104 mmol/L Normal 98-107 [facility] Comment on above: Order Comment: 'TROP ' Serial specimen #1, #2 or #3: 1 Performed By: #### L 100.0100, L501.4020, L503.6620, L500.2500 ####[facility] [address] [place], [address] CO2 [Moles/Vol] 28.0 mmol/L Normal 21.0-32.0 [facility] Comment on above: Order Comment: 'TROP ' Serial specimen #1, #2 or #3: 1 Performed By: #### L 100.0100, L501.4020, L503.6620, L500.2500 ####[facility] [address] [place], [address] Creatinine [Mass/Vol] 0.93 mg/dL Normal 0.55-1.02 [facility] Comment on above: Order Comment: 'TROP ' Serial specimen #1, #2 or #3: 1 Result Comment: The validity of the calculated GFR GFRAA in patients over70 years has not been determined. Clinical correlation isessential. Performed By: #### L 100.0100, L501.4020, L503.6620, L500.2500 ####[facility] [address] [place], [address] ECRCL 45.88 ml/min Normal [facility] Comment on above: Order Comment: 'TROP ' Serial specimen #1, #2 or #3: 1 Performed By: #### L 100.0100, L501.4020, L503.6620, L500.2500 ####[facility] [address] [place], [address] EST GFR - AA 74 mL/min Normal >60 [facility] Comment on above: Order Comment: 'TROP ' Serial specimen #1, #2 or #3: 1 Result Comment: Afri can [place] GFR Calc Performed By: #### L 100.0100, L501.4020, L503.6620, L500.2500 ####[facility] [address] [place], [address] GAP 7 Normal 5-15 [facility] Comment on above: Order Comment: 'TROP ' Serial specimen #1, #2 or #3: 1 Performed By: #### L 100.0100, L501.4020, L503.6620, L500.2500 ####[facility] [address] [place], [address] GFR/1.73 sq M.predicted among non-blacks MDRD (S/P/Bld) [Vol rate/Area] 61 mL/min/{1.73_m2} Normal >60 [facility] Comment on above: Order Comment: 'TROP ' Serial specimen #1, #2 or #3: 1 Result Comment: Non- GFR Calc Performed By: #### L 100.0100, L501.4020, L503.6620, L500.2500 ####[facility] [address] [place], [address] Glucose [Mass/Vol] 167 mg/dL High 74-106 [facility] Comment on above: Order Comment: 'TROP ' Serial specimen #1, #2 or #3: 1 Result Comment: Fast ing Glucose result greater than or equal to 126 mg/dLsuggests DIABETES MELLITUS per A.D.A. criteria. Performed By: #### L 100.0100, L501.4020, L503.6620, L500.2500 ####[facility] [address] [place], [address] Potassium [Moles/Vol] 4.0 mmol/L Normal 3.5-5.1 [facility] Comment on above: Order Comment: 'TROP ' Serial specimen #1, #2 or #3: 1 Performed By: #### L 100.0100, L501.4020, L503.6620, L500.2500 ####[facility] [address] [place], [address] Sodium [Moles/Vol] 138 mmol/L Normal 136-145 [facility] Comment on above: Order Comment: 'TROP ' Serial specimen #1, #2 or #3: 1 Performed By: #### L 100.0100, L501.4020, L503.6620, L500.2500 ####[facility] [address] [place], [address] Urea nitrogen [Mass/Vol] 12 mg/dL Normal 7-18 [facility] Comment on above: Order Comment: 'TROP ' Serial specimen #1, #2 or #3: 1 Performed By: #### L 100.0100, L501.4020, L503.6620, L500.2500 ####[facility] [address] [place], [address] CBC W/Diff, Automatedon 05-03 PLT EST ADEQUATE Normal ADEQ [facility] Comment on above: Performed By: #### L 100.0100, L501.4020, L503.6620, L500.2500 ####[facility] [address] [place], [address] Chest PA and Lateralon 05-30 Chest PA and Lateral Normal [facility] Emergency Department Summary on 05-30-2024 Emergency Department Summary Normal [facility] L501.4020on 05-30-2024 TROPONIN-I HS 12 pg/mL Normal 3.0-54.0 [facility] Comment on above: Order Comment: 'TROP ' Serial specimen #1, #2 or #3: 1 Result Comment: Sean reyes Note: New Test Units and Gender Specific Reference Ranges. For more information see Policy Stat Procedure [place] High Sensitivity Troponin (TNIH) and attachments. Performed By: #### L 100.0100, L501.4020, L503.6620, L500.2500 ####[facility] [address] [place], [address] Inital Evaluation (1) - PTon 04-26-2024 Inital Evaluation (1) - PT Normal [facility] CBC W/Diff, Automatedon 03-31 Absolute Lymph 1.93 X10 3/uL Normal 0.83-4.51 [facility] Comment on above: Performed By: #### L 100.0100, L501.9985, L500.4050 ####[facility] [address] [place], [address] Absolute Neut 5.1 X10 3/uL Normal 2.0-7.7 [facility] Comment on above: Performed By: #### L 100.0100, L501.9985, L500.4050 ####[facility] [address] [place], [address] Basophils/100 WBC (Bld) 0.6 % Normal 0-1 [facility] Comment on above: Performed By: #### L 100.0100, L501.9985, L500.4050 ####[facility] [address] [place], [address] Eosinophils/100 WBC (Bld) 3.7 % Normal 0-5 [facility] Comment on above: Performed By: #### L 100.0100, L501.9985, L500.4050 ####[facility] [address] [place], [address] Erythrocyte distribution width (RBC) [Ratio] 16.0 % High 11.6-14.6 [facility] Comment on above: Performed By: #### L 100.0100, L501.9985, L500.4050 ####[facility] [address] [place], [address] Hematocrit (Bld) [Volume fraction] 34.9 % Low 37-47 [facility] Comment on above: Performed By: #### L 100.0100, L501.9985, L500.4050 ####[facility] [address] [place], [address] Hemoglobin (Bld) [Mass/Vol] 10.4 g/dL Low 12.0-15.0 [facility] Comment on above: Performed By: #### L 100.0100, L501.9985, L500.4050 ####[facility] [address] [place], [address] IG% 0.300 Normal 0.0-0.9 [facility] Comment on above: Result Comment: IG% - Immature Granulocytes (promyelocytes, myelocytes andmetamyelocytes) > 1% indicates that a LEFT SHIFT is Present. Performed By: #### L 100.0100, L501.9985, L500.4050 ####[facility] [address] [place], [address] Lymphocytes/100 WBC (Bld) 24.5 % Normal 19-41 [facility] Comment on above: Performed By: #### L 100.0100, L501.9985, L500.4050 ####[facility] [address] [place], [address] MCH (RBC) [Entitic mass] 24.4 pg Low 27.0-32.0 [facility] Comment on above: Performed By: #### L 100.0100, L501.9985, L500.4050 ####[facility] [address] [place], [address] MCHC (RBC) [Mass/Vol] 29.8 g/dL Low 32-36 [facility] Comment on above: Performed By: #### L 100.0100, L501.9985, L500.4050 ####[facility] [address] [place], [address] MCV (RBC) [Entitic vol] 81.9 fL Normal 81-99 [facility] Comment on above: Performed By: #### L 100.0100, L501.9985, L500.4050 ####[facility] [address] [place], [address] Monocytes/100 WBC (Bld) 6.8 % Normal 0-10 [facility] Comment on above: Performed By: #### L 100.0100, L501.9985, L500.4050 ####[facility] [address] [place], [address] Neutrophils/100 WBC (Bld) 64.1 % Normal 47-70 [facility] Comment on above: Performed By: #### L 100.0100, L501.9985, L500.4050 ####[facility] [address] [place], [address] Nucleated RBC (Bld) [#/Vol] 0 10*3/uL Normal 0-5 [facility] Comment on above: Performed By: #### L 100.0100, L501.9985, L500.4050 ####[facility] [address] [place], [address] Platelet mean volume (Bld) [Entitic vol] 10.7 fL Normal 6.2-12.0 [facility] Comment on above: Performed By: #### L 100.0100, L501.9985, L500.4050 ####[facility] [address] [place], [address] Platelets (Bld) [#/Vol] 294 10*3/uL Normal 150-450 [facility] Comment on above: Performed By: #### L 100.0100, L501.9985, L500.4050 ####[facility] [address] [place], [address] RBC (Bld) [#/Vol] 4.26 10*6/uL Normal 4.2-5.4 [facility] Comment on above: Performed By: #### L 100.0100, L501.9985, L500.4050 ####[facility] [address] [place], [address] RDW SD 48.0 fl High 35.1-43.9 [facility] Comment on above: Performed By: #### L 100.0100, L501.9985, L500.4050 ####[facility] [address] [place], [address] WBC (Bld) [#/Vol] 7.9 10*3/uL Normal 4.4-11.0 [facility] Comment on above: Performed By: #### L 100.0100, L501.9985, L500.4050 ####[facility] [address] [place], [address] Comprehensive Metabolic Prof [facility] 04-18-2024 Albumin [Mass/Vol] 3.0 g/dL Low 3.2-5.0 [facility] Comment on above: Performed By: #### L 100.0100, L501.9985, L500.4050 ####[facility] [address] [place], [address] Albumin/Globulin [Mass ratio] 0.6 {ratio} Low 0.9-2.4 [facility] Comment on above: Performed By: #### L 100.0100, L501.9985, L500.4050 ####[facility] [address] [place], [address] ALK P 130 U/L High 45-117 [facility] Comment on above: Performed By: #### L 100.0100, L501.9985, L500.4050 ####[facility] [address] [place], [address] ALT [Catalytic activity/Vol] 14 U/L Normal 13-56 [facility] Comment on above: Performed By: #### L 100.0100, L501.9985, L500.4050 ####[facility] [address] [place], [address] AST [Catalytic activity/Vol] 22 U/L Normal 15-37 [facility] Comment on above: Performed By: #### L 100.0100, L501.9985, L500.4050 ####[facility] [address] [place], [address] Bilirubin [Mass/Vol] 0.30 mg/dL Normal 0.20-1.00 [facility] Comment on above: Result Comment: For patients on eltrombopag therapy, use of Dimension [place] TBIL is not recommended. Performed By: #### L 100.0100, L501.9985, L500.4050 ####[facility] [address] [place], [address] BUN/CRE 12.5 RATIO Normal 10-20 [facility] Comment on above: Performed By: #### L 100.0100, L501.9985, L500.4050 ####[facility] [address] [place], [address] CA,Total 11.0 mg/dL High 8.5-10.1 [facility] Comment on above: Performed By: #### L 100.0100, L501.9985, L500.4050 ####[facility] [address] [place], [address] Chloride [Moles/Vol] 101 mmol/L Normal 98-107 [facility] Comment on above: Performed By: #### L 100.0100, L501.9985, L500.4050 ####[facility] [address] [place], [address] CO2 [Moles/Vol] 26.0 mmol/L Normal 21.0-32.0 [facility] Comment on above: Performed By: #### L 100.0100, L501.9985, L500.4050 ####[facility] [address] [place], [address] Creatinine [Mass/Vol] 0.96 mg/dL Normal 0.55-1.02 [facility] Comment on above: Result Comment: The validity of the calculated GFR GFRAA in patients over70 years has not been determined. Clinical correlation isessential. Performed By: #### L 100.0100, L501.9985, L500.4050 ####[facility] [address] [place], [address] EST GFR - AA 72 mL/min Normal >60 [facility] Comment on above: Result Comment: Afri can [place] GFR Calc Performed By: #### L 100.0100, L501.9985, L500.4050 ####[facility] [address] [place], [address] GAP 6 Normal 5-15 [facility] Comment on above: Performed By: #### L 100.0100, L501.9985, L500.4050 ####[facility] [address] [place], [address] GFR/1.73 sq M.predicted among non-blacks MDRD (S/P/Bld) [Vol rate/Area] 59 mL/min/{1.73_m2} Low >60 [facility] Comment on above: Result Comment: Non- GFR Calc Performed By: #### L 100.0100, L501.9985, L500.4050 ####[facility] [address] [place], [address] Globulin (S) [Mass/Vol] 5.4 g/dL High 2.2-4.2 [facility] Comment on above: Performed By: #### L 100.0100, L501.9985, L500.4050 ####[facility] [address] [place], [address] Glucose [Mass/Vol] 142 mg/dL High 74-106 [facility] Comment on above: Result Comment: Fast ing Glucose result greater than or equal to 126 mg/dLsuggests DIABETES MELLITUS per A.D.A. criteria. Performed By: #### L 100.0100, L501.9985, L500.4050 ####[facility] [address] [place], [address] Potassium [Moles/Vol] 3.5 mmol/L Normal 3.5-5.1 [facility] Comment on above: Performed By: #### L 100.0100, L501.9985, L500.4050 ####[facility] [address] [place], [address] Sodium [Moles/Vol] 133 mmol/L Low 136-145 [facility] Comment on above: Performed By: #### L 100.0100, L501.9985, L500.4050 ####[facility] [address] [place], [address] T PROT 8.4 g/dL High 6.4-8.2 [facility] Comment on above: Performed By: #### L 100.0100, L501.9985, L500.4050 ####[facility] [address] [place], [address] Urea nitrogen [Mass/Vol] 12 mg/dL Normal 7-18 [facility] Comment on above: Performed By: #### L 100.0100, L501.9985, L500.4050 ####[facility] [address] [place], [address] Hemoglobin A1con 04-18-2024 HbA1c (Bld) [Mass fraction] 8.2 % High 3.8-5.6 [facility] Comment on above: Result Comment: Norm al < 5.7 % Prediabetic 5.7 - 6.4 % Diabetic >or= 6.5 % Please note range changes. Performed By: #### L 100.0100, L501.9985, L500.4050 ####[facility] [address] [place], [address] Inital Evaluation (1) - PTon 03-10-2024 Inital Evaluation (1) - PT Normal [facility] SCRN MAMM (CAD)W/CEASAR BILATo n 03-01-2024 SCRN MAMM (CAD)W/CEASAR BILAT Normal [facility] Dexa Bone Density/Append Ske guillermo 02-23-2024 Dexa Bone Density/Append Skel Normal [facility] Absolute lymphocyte countOrd ered By: Sunny Bell on 12-30-2023 Lymphocytes Auto (Unsp spec) [#/Vol] 2.48 10*3/uL 0.83-4.51 [facility] Automated lymphocyte count a s percentage of total leukocytesOrdered By: Sunny Bell on 12-30-2023 Lymphocytes/100 WBC Auto (Unsp spec) 25.3 % 19-41 [facility] Basophil percentageOrdered B y: Sunny Bell on 12-30-2023 Basophils/100 WBC (Bld) 0.3 % 0-1 [facility] Chloride [Moles/Vol] 104 mmol/L 98-107 [facility] Eosinophils/100 WBC (Bld) 1.4 % 0-5 [facility] Glucose [Mass/Vol] 127 mg/dL 74-106 [facility] Comment on above: Fasting Glucose resu lt greater than or equal to 126 mg/dL suggests DIABETES MELLITUS per A.D.A. criteria. Hemoglobin (Bld) [Mass/Vol] 10.7 g/dL 12.0-15.0 [facility] Monocytes/100 WBC (Bld) 8.7 % 0-10 [facility] Neutrophils (Bld) [#/Vol] 6.3 10*3/uL 2.0-7.7 [facility] Neutrophils/100 WBC (Bld) 63.9 % 47-70 [facility] Potassium [Moles/Vol] 4.4 mmol/L 3.5-5.1 [facility] Sodium [Moles/Vol] 135 mmol/L 136-145 [facility] WBC (Bld) [#/Vol] 9.8 10*3/uL 4.4-11.0 [facility] Determination of erythrocyte mean corpuscular volume (MCV)Ordered By: Sunny Bell on 12-30-2023 MCV (RBC) [Entitic vol] 84.9 fL 81-99 [facility] Erythrocyte distribution wid th ratioOrdered By: Sunny Bell on 12-30-2023 Erythrocyte distribution width (RBC) [Ratio] 15.5 % 11.6-14.6 [facility] Erythrocyte distribution wid th standard deviationOrdered By: Sunny Bell on 12-30-2023 Erythrocyte distribution width (RBC) [Entitic vol] 47.9 fL 35.1-43.9 [facility] Hematocrit Auto (Bld) [Volum e fraction]Ordered By: Sunny Bell on 12-30-2023 Hematocrit (Bld) [Volume fraction] 33.8 % 37-47 [facility] Immature granulocytes/100 WB C Auto (Bld)Ordered By: Sunny Bell on 12-30-2023 Immature granulocytes/100 WBC (Bld) 0.400 % 0.0-0.9 [facility] Comment on above: IG% - Immature Granu locytes (promyelocytes, myelocytes and metamyelocytes) > 1% indicates that a LEFT SHIFT is Present. Laboratory - Chemistry and C hemistry - challengeOrdered By: Sunny Bell on 12-30-2023 CO2 [Moles/Vol] 27.0 mmol/L 21.0-32.0 [facility] Urea nitrogen/Creatinine [Mass ratio] 21.3 mg/mg 10-20 [facility] Laboratory - Hematology and Cell countsOrdered By: Sunny Bell on 12-30-2023 MCH (RBC) [Entitic mass] 26.9 pg 27.0-32.0 [facility] MCHC (RBC) [Mass/Vol] 31.7 g/dL 32-36 [facility] Nucleated RBC/100 WBC (Bld) [Ratio] 0 % 0-5 [facility] Platelet mean volume (Bld) [Entitic vol] 11.3 fL 6.2-12.0 [facility] Platelets (Bld) [#/Vol] 191 10*3/uL 150-450 [facility] No Panel InformationOrdered By: Sunny Bell on 12-30-2023 Estimated Creatinine Clearance Calc 40.01 ml/min [facility] Estimated GFR (MDRD) Amer 63 mL/min >60 [facility] Comment on above: GFR Calc Estimated GFR (MDRD) Non-Af Amer 52 mL/min >60 [facility] Comment on above: Non- GFR Calc RBC Auto (Bld) [#/Vol]Ordere d By: Sunny Bell on 12-30-2023 RBC (Bld) [#/Vol] 3.98 10*6/uL 4.2-5.4 [facility] Serum or plasma calcium melanie urement (mass/volume)Ordered By: Sunny Bell on 12-30-2023 Calcium [Mass/Vol] 11.3 mg/dL 8.5-10.1 [facility] Serum or plasma creatinine m easurement (mass/volume)Ordered By: Sunny Bell on 12-30-2023 Creatinine [Mass/Vol] 1.08 mg/dL 0.55-1.02 [facility] Comment on above: The validity of the calculated GFR & GFRAA in patients over 70 years has not been determined. Clinical correlation is essential. Serum or plasma urea nitroge n measurement (mass/volume)Ordered By: Sunny Bell on 12-30-2023 Urea nitrogen [Mass/Vol] 23 mg/dL 7-18 [facility] Thin prep Papanicolaou smear with manual screeningOrdered By: Sunny Bell on 12-30-2023 Thin prep Papanicolaou smear with manual screening 78 mg/dL 74-106 [facility] Comment on above: MANAGEMENT OF PATIEN T CARE PER NURSING PROTOCOL Thin prep Papanicolaou smear with manual screening 4 5-15 [facility] Basophil percentageOrdered B y: Sunny Bell on 12-28-2023 Basophil percentage 3.0 mg/dL 2.5-4.9 [facility] No Panel InformationOrdered By: Nestor Bartlett on 12-28-2023 Parathyroid Hormone (Intact) 177.6 pg/mL 18.4-80.1 [facility] Absolute lymphocyte countOrd ered By: Queta Cortez on 12-27-2023 Lymphocytes Auto (Unsp spec) [#/Vol] 3.04 10*3/uL 0.83-4.51 [facility] Activated partial thrombopla stin time (aPTT) in platelet poor plasma by coagulation aOrdered By: Queta Cortez on 12-27-2023 aPTT Coag (PPP) [Time] 27.3 s 24.1-36.2 [facility] Automated lymphocyte count a s percentage of total leukocytesOrdered By: Queta Cortez on 12-27-2023 Lymphocytes/100 WBC Auto (Unsp spec) 37.1 % 19-41 [facility] Basophil percentageOrdered B y: Queta Cortez on 12-27-2023 Basophils/100 WBC (Bld) 0.5 % 0-1 [facility] Chloride [Moles/Vol] 103 mmol/L 98-107 [facility] Eosinophils/100 WBC (Bld) 3.1 % 0-5 [facility] Glucose [Mass/Vol] 254 mg/dL 74-106 [facility] Comment on above: Glucose result great er than or equal to 200 mg/dLsuggests DIABETES MELLITUS per A.D.A. criteria. Hemoglobin (Bld) [Mass/Vol] 12.4 g/dL 12.0-15.0 [facility] Monocytes/100 WBC (Bld) 6.6 % 0-10 [facility] Neutrophils (Bld) [#/Vol] 4.2 10*3/uL 2.0-7.7 [facility] Neutrophils/100 WBC (Bld) 51.7 % 47-70 [facility] Potassium [Moles/Vol] 4.2 mmol/L 3.5-5.1 [facility] Sodium [Moles/Vol] 136 mmol/L 136-145 [facility] WBC (Bld) [#/Vol] 8.2 10*3/uL 4.4-11.0 [facility] Determination of erythrocyte mean corpuscular volume (MCV)Ordered By: Queta Cortez on 12-27-2023 MCV (RBC) [Entitic vol] 85.2 fL 81-99 [facility] Erythrocyte distribution wid th ratioOrdered By: Queta Cortez on 12-27-2023 Erythrocyte distribution width (RBC) [Ratio] 15.5 % 11.6-14.6 [facility] Erythrocyte distribution wid th standard deviationOrdered By: Queta Cortez on 12-27-2023 Erythrocyte distribution width (RBC) [Entitic vol] 47.0 fL 35.1-43.9 [facility] Hematocrit Auto (Bld) [Volum e fraction]Ordered By: Queta Cortez on 12-27-2023 Hematocrit (Bld) [Volume fraction] 39.8 % 37-47 [facility] Immature granulocytes/100 WB C Auto (Bld)Ordered By: Queta Cortez on 12-27-2023 Immature granulocytes/100 WBC (Bld) 1.000 % 0.0-0.9 [facility] Comment on above: IG% - Immature Granu locytes (promyelocytes, myelocytes and metamyelocytes) > 1% indicates that a LEFT SHIFT is Present. Laboratory - Chemistry and C hemistry - challengeOrdered By: Queta Cortez on 12-27-2023 CO2 [Moles/Vol] 29.0 mmol/L 21.0-32.0 [facility] Urea nitrogen/Creatinine [Mass ratio] 18.5 mg/mg 10-20 [facility] Laboratory - CoagulationOrde red By: Queta Cortez on 12-27-2023 INR Coag (Bld) [Relative time] 1.1 {INR} [facility] PT Coag (PPP) [Time] 13.7 s 11.7-14.9 [facility] Laboratory - Hematology and Cell countsOrdered By: Queta Cortez on 12-27-2023 MCH (RBC) [Entitic mass] 26.6 pg 27.0-32.0 [facility] MCHC (RBC) [Mass/Vol] 31.2 g/dL 32-36 [facility] Nucleated RBC/100 WBC (Bld) [Ratio] 0 % 0-5 [facility] Platelet mean volume (Bld) [Entitic vol] 11.5 fL 6.2-12.0 [facility] Platelets (Bld) [#/Vol] 237 10*3/uL 150-450 [facility] No Panel InformationOrdered By: Queta Cortez on 12-27-2023 Estimated Creatinine Clearance Calc 37.33 ml/min [facility] Estimated GFR (MDRD) Amer 56 mL/min >60 [facility] Comment on above: GFR Calc Estimated GFR (MDRD) Non-Af Amer 46 mL/min >60 [facility] Comment on above: Non- GFR Calc RBC Auto (Bld) [#/Vol]Ordere d By: Queta Cortez on 12-27-2023 RBC (Bld) [#/Vol] 4.67 10*6/uL 4.2-5.4 [facility] Serum or plasma calcium melanie urement (mass/volume)Ordered By: Queta Cortez on 12-27-2023 Calcium [Mass/Vol] 11.2 mg/dL 8.5-10.1 [facility] Serum or plasma creatinine m easurement (mass/volume)Ordered By: Queta Cortez on 12-27-2023 Creatinine [Mass/Vol] 1.19 mg/dL 0.55-1.02 [facility] Comment on above: The validity of the calculated GFR & GFRAA in patients over 70 years has not been determined. Clinical correlation is essential. Serum or plasma urea nitroge n measurement (mass/volume)Ordered By: Queta Cortez on 12-27-2023 Urea nitrogen [Mass/Vol] 22 mg/dL 7-18 [facility] Thin prep Papanicolaou smear with manual screeningOrdered By: Queta Cortez on 12-27-2023 Thin prep Papanicolaou smear with manual screening 4 5-15 [facility] Whole blood hemoglobin A1c/t otal hemoglobin ratio (mass fraction)Ordered By: Nestor Bartlett on 12-27-2023 HbA1c (Bld) [Mass fraction] 9.4 % 3.8-5.6 [facility] Comment on above: Normal < 5.7 % Predi abetic 5.7 - 6.4 % Diabetic >or= 6.5 % Please note range changes. Absolute lymphocyte countOrd ered By: Ramone Smiley on 10-26-2023 Lymphocytes Auto (Unsp spec) [#/Vol] 2.86 10*3/uL 0.83-4.51 [facility] Automated lymphocyte count a s percentage of total leukocytesOrdered By: Ramone Smiley on 10-26-2023 Lymphocytes/100 WBC Auto (Unsp spec) 31.9 % 19-41 [facility] Basophil percentageOrdered B y: Ramone Smiley on 10-26-2023 Basophils/100 WBC (Bld) 0.6 % 0-1 [facility] Bilirubin [Mass/Vol] 0.30 mg/dL 0.20-1.00 [facility] Comment on above: For patients on eltr ombopag therapy, use of Dimension [place] TBIL is not recommended. Chloride [Moles/Vol] 101 mmol/L 98-107 [facility] Eosinophils/100 WBC (Bld) 2.6 % 0-5 [facility] Glucose [Mass/Vol] 135 mg/dL 74-106 [facility] Comment on above: Fasting Glucose resu lt greater than or equal to 126 mg/dL suggests DIABETES MELLITUS per A.D.A. criteria. Hemoglobin (Bld) [Mass/Vol] 10.9 g/dL 12.0-15.0 [facility] Monocytes/100 WBC (Bld) 8.0 % 0-10 [facility] Neutrophils (Bld) [#/Vol] 5.1 10*3/uL 2.0-7.7 [facility] Neutrophils/100 WBC (Bld) 56.6 % 47-70 [facility] Potassium [Moles/Vol] 4.5 mmol/L 3.5-5.1 [facility] Protein [Mass/Vol] 8.6 g/dL 6.4-8.2 [facility] Sodium [Moles/Vol] 134 mmol/L 136-145 [facility] WBC (Bld) [#/Vol] 9.0 10*3/uL 4.4-11.0 [facility] Determination of erythrocyte mean corpuscular volume (MCV)Ordered By: Ramone Smiley on 10-26-2023 MCV (RBC) [Entitic vol] 85.8 fL 81-99 [facility] Erythrocyte distribution wid th ratioOrdered By: Ramone Smiley on 10-26-2023 Erythrocyte distribution width (RBC) [Ratio] 17.5 % 11.6-14.6 [facility] Erythrocyte distribution wid th standard deviationOrdered By: Ramone Smiley on 10-26-2023 Erythrocyte distribution width (RBC) [Entitic vol] 55.2 fL 35.1-43.9 [facility] Hematocrit Auto (Bld) [Volum e fraction]Ordered By: Ramone Smiley on 10-26-2023 Hematocrit (Bld) [Volume fraction] 36.2 % 37-47 [facility] Immature granulocytes/100 WB C Auto (Bld)Ordered By: Ramone Smiley on 10-26-2023 Immature granulocytes/100 WBC (Bld) 0.300 % 0.0-0.9 [facility] Comment on above: IG% - Immature Granu locytes (promyelocytes, myelocytes and metamyelocytes) > 1% indicates that a LEFT SHIFT is Present. Laboratory - Chemistry and C hemistry - challengeOrdered By: Ramone Smiley on 10-26-2023 Albumin/Globulin [Mass ratio] 0.6 {ratio} 0.9-2.4 [facility] ALP [Catalytic activity/Vol] 109 U/L 45-117 [facility] ALT [Catalytic activity/Vol] 17 U/L 13-56 [facility] CO2 [Moles/Vol] 27.0 mmol/L 21.0-32.0 [facility] Cobalamin (Vitamin B12) [Mass/Vol] 654 pg/mL 211-911 [facility] Ferritin [Mass/Vol] 99 ng/mL 8-252 [facility] Globulin (S) [Mass/Vol] 5.4 g/dL 2.2-4.2 [facility] Urea nitrogen/Creatinine [Mass ratio] 17.6 mg/mg 10-20 [facility] Laboratory - Hematology and Cell countsOrdered By: Ramone Smiley on 10-26-2023 MCH (RBC) [Entitic mass] 25.8 pg 27.0-32.0 [facility] MCHC (RBC) [Mass/Vol] 30.1 g/dL 32-36 [facility] Nucleated RBC/100 WBC (Bld) [Ratio] 0 % 0-5 [facility] Platelet mean volume (Bld) [Entitic vol] 11.6 fL 6.2-12.0 [facility] Platelets (Bld) [#/Vol] 268 10*3/uL 150-450 [facility] No Panel InformationOrdered By: Ramone Smiley on 10-26-2023 Estimated GFR (MDRD) Amer 67 mL/min >60 [facility] Comment on above: GFR Calc Estimated GFR (MDRD) Non-Af Amer 55 mL/min >60 [facility] Comment on above: Non- GFR Calc Folate 23.70 ng/mL 3.1-55.4 [facility] Vitamin D 25-Hydroxy 34.5 ng/mL [facility] Comment on above: Vitamin D 25(OH) Sta tus Range Deficiency <20 ng/mL (50nmol/L) Insufficiency 20 - 30 ng/mL (50 - 75 nmol/L) Sufficiency 30 - 100 ng/mL (75 - 250 nmol/L) Toxicity >100 ng/mL (>250 nmol/L) RBC Auto (Bld) [#/Vol]Ordere d By: Ramone Smiley on 10-26-2023 RBC (Bld) [#/Vol] 4.22 10*6/uL 4.2-5.4 [facility] Serum or plasma calcium melanie urement (mass/volume)Ordered By: Ramone Smiley on 10-26-2023 Calcium [Mass/Vol] 11.2 mg/dL 8.5-10.1 [facility] Serum or plasma creatinine m easurement (mass/volume)Ordered By: Ramone Smiley on 10-26-2023 Creatinine [Mass/Vol] 1.02 mg/dL 0.55-1.02 [facility] Comment on above: The validity of the calculated GFR & GFRAA in patients over 70 years has not been determined. Clinical correlation is essential. Serum or plasma thyroid stim ulating hormone (TSH) measurement (units/volume)Ordered By: Ramone Smiley on 10-26-2023 TSH Qn 0.66 uIU/mL 0.358-3.74 [facility] Serum or plasma urea nitroge n measurement (mass/volume)Ordered By: Ramone Smiley on 10-26-2023 Urea nitrogen [Mass/Vol] 18 mg/dL 7-18 [facility] Thin prep Papanicolaou smear with manual screeningOrdered By: Ramnoe Smiley on 10-26-2023 Thin prep Papanicolaou smear with manual screening 3.2 g/dL 3.2-5.0 [facility] Thin prep Papanicolaou smear with manual screening 18 U/L 15-37 [facility] Thin prep Papanicolaou smear with manual screening 6 5-15 [facility] Whole blood hemoglobin A1c/t otal hemoglobin ratio (mass fraction)Ordered By: Ramone Smiley on 10-26-2023 HbA1c (Bld) [Mass fraction] 8.2 % 3.8-5.6 [facility] Comment on above: Normal < 5.7 % Predi abetic 5.7 - 6.4 % Diabetic >or= 6.5 % Please note range changes. Basophil percentageOrdered B y: Nestor Bartlett on 08-17-2023 Chloride [Moles/Vol] 105 mmol/L 98-107 [facility] Glucose [Mass/Vol] 167 mg/dL 74-106 [facility] Comment on above: Fasting Glucose resu lt greater than or equal to 126 mg/dL suggests DIABETES MELLITUS per A.D.A. criteria. Potassium [Moles/Vol] 4.9 mmol/L 3.5-5.1 [facility] Sodium [Moles/Vol] 139 mmol/L 136-145 [facility] WBC (Bld) [#/Vol] 8.4 10*3/uL 4.4-11.0 [facility] Blood erythrocytes count (nu mber/volume)Ordered By: Nestor Bartlett on 08-17-2023 RBC (Bld) [#/Vol] 3.41 10*6/uL 4.2-5.4 [facility] Blood hemoglobin measurement (mass/volume)Ordered By: Nestor Bartlett on 08-17-2023 Hemoglobin (Bld) [Mass/Vol] 8.9 g/dL 12.0-15.0 [facility] Blood platelet mean volumeOr dered By: Nestor Bartlett on 08-17-2023 Platelet mean volume (Bld) [Entitic vol] 10.4 fL 6.2-12.0 [facility] Determination of erythrocyte mean corpuscular volume (MCV)Ordered By: Nestor Bartlett on 08-17-2023 MCV (RBC) [Entitic vol] 84.5 fL 81-99 [facility] Glucose Glucometer (BldC) [M ass/Vol]Ordered By: Sandeep Denson on 08-17-2023 Glucose [Mass/Vol] 267 mg/dL 74-106 [facility] Comment on above: MANAGEMENT OF PATIEN T CARE PER NURSING PROTOCOL Hematocrit Auto (Bld) [Volum e fraction]Ordered By: Nestor Bartlett on 08-17-2023 Hematocrit (Bld) [Volume fraction] 28.8 % 37-47 [facility] Laboratory - Chemistry and C hemistry - challengeOrdered By: Nestor Bartlett on 08-17-2023 CO2 [Moles/Vol] 30.0 mmol/L 21.0-32.0 [facility] Urea nitrogen/Creatinine [Mass ratio] 19.9 mg/mg 10-20 [facility] Laboratory - Hematology and Cell countsOrdered By: Nestor Bartlett on 08-17-2023 Erythrocyte distribution width (RBC) [Entitic vol] 55.6 fL 35.1-43.9 [facility] Erythrocyte distribution width (RBC) [Ratio] 17.9 % 11.6-14.6 [facility] MCH (RBC) [Entitic mass] 26.1 pg 27.0-32.0 [facility] MCHC Auto (RBC) [Mass/Vol]Or dered By: Nestor Bartlett on 08-17-2023 MCHC (RBC) [Mass/Vol] 30.9 g/dL 32-36 [facility] No Panel InformationOrdered By: Nestor Bartlett on 08-17-2023 Estimated Creatinine Clearance Calc 41.47 ml/min [facility] Estimated GFR (MDRD) Amer 77 mL/min >60 [facility] Comment on above: GFR Calc Estimated GFR (MDRD) Non-Af Amer 64 mL/min >60 [facility] Comment on above: Non- GFR Calc Platelets bldOrdered By: Neida Bartlett on 08-17-2023 Platelets (Bld) [#/Vol] 480 10*3/uL 150-450 [facility] Serum or plasma calcium melanie urement (mass/volume)Ordered By: Nestor Bartlett on 08-17-2023 Calcium [Mass/Vol] 10.6 mg/dL 8.5-10.1 [facility] Serum or plasma creatinine m easurement (mass/volume)Ordered By: Nestor Bartlett on 08-17-2023 Creatinine [Mass/Vol] 0.91 mg/dL 0.55-1.02 [facility] Comment on above: The validity of the calculated GFR & GFRAA in patients over 70 years has not been determined. Clinical correlation is essential. Serum or plasma urea nitroge n measurement (mass/volume)Ordered By: Nestor Bartlett on 08-17-2023 Urea nitrogen [Mass/Vol] 18 mg/dL -18 [facility] Thin prep Papanicolaou smear with manual screeningOrdered By: Nestor Bartlett on 08-17-2023 Thin prep Papanicolaou smear with manual screening 4 - [facility] Absolute lymphocyte countOrd ered By: Heydi Amaya on 08-14-2023 Lymphocytes Auto (Unsp spec) [#/Vol] 1.25 10*3/uL 0.83-4.51 [facility] Basophil percentageOrdered B y: Heydi Amaya on 08-14-2023 Basophil percentage 1.7 mg/dL 2.5-4.9 [facility] Basophils/100 WBC (Bld) 0.3 % 0-1 [facility] Eosinophils/100 WBC (Bld) 0.6 % 0-5 [facility] Neutrophils (Bld) [#/Vol] 9.0 10*3/uL 2.0-7.7 [facility] Neutrophils/100 WBC (Bld) 79.7 % 47-70 [facility] Blood lymphocytes/100 leukoc ytesOrdered By: Heydi Amaya on 08-14-2023 Lymphocytes/100 WBC (Bld) 11.1 % 19-41 [facility] Blood monocytes/100 leukocyt esOrdered By: Heydi Amaya on 08-14-2023 Monocytes/100 WBC (Bld) 6.1 % 0-10 [facility] Iron measurement (mass/mass) Ordered By: Nestor Bartlett on 08-14-2023 Iron (Unsp spec) [Mass/Mass] 14 ug/dL 50-170 [facility] Laboratory - Chemistry and C hemistry - challengeOrdered By: Nestor Bartlett on 08-14-2023 Cobalamin (Vitamin B12) [Mass/Vol] 250 pg/mL 211-911 [facility] Laboratory - Chemistry and C hemistry - challengeOrdered By: Heydi Amaya on 08-14-2023 Free T4 [Mass/Vol] 1.51 ng/dL 0.76-1.46 [facility] Magnesium [Mass/Vol] 2.1 mg/dL 1.6-2.6 [facility] Laboratory - Hematology and Cell countsOrdered By: Heydi Amaya on 08-14-2023 Immature granulocytes/100 WBC (Bld) 2.200 % 0.0-0.9 [facility] Comment on above: IG% - Immature Granu locytes (promyelocytes, myelocytes and metamyelocytes) > 1% indicates that a LEFT SHIFT is Present. Nucleated RBC/100 WBC (Bld) [Ratio] 0 % 0-5 [facility] No Panel InformationOrdered By: Heydi Amaya on 08-14-2023 Free Triiodothyronine (T3) pg/dL 1.9 pg/mL 2.18-3.98 [facility] Parathyroid Hormone (Intact) 153.7 pg/mL 18.4-80.1 [facility] Thyroid Stimulating Hormone (TSH) 0.01 uIU/mL 0.358-3.74 [facility] Vitamin D 25-Hydroxy 39.9 ng/mL [facility] Comment on above: Vitamin D 25(OH) Sta tus Range Deficiency <20 ng/mL (50nmol/L) Insufficiency 20 - 30 ng/mL (50 - 75 nmol/L) Sufficiency 30 - 100 ng/mL (75 - 250 nmol/L) Toxicity >100 ng/mL (>250 nmol/L) No Panel InformationOrdered By: Nestor Bartlett on 08-14-2023 Total Iron Binding Capacity 197 ug/dL 250-450 [facility] Serum or plasma ferritin rubina surement (mass/volume)Ordered By: Nestor Bartlett on 08-14-2023 Ferritin [Mass/Vol] 1578 ng/mL 8-252 [facility] Serum or plasma folate measu rement (mass/volume)Ordered By: Nestor Bartlett on 08-14-2023 Folate [Mass/Vol] 2.90 ng/mL 3.1-55.4 [facility] Serum or plasma iron saturat ion measurement (mass fraction)Ordered By: Nestor Bartlett on 08-14-2023 Iron saturation [Mass fraction] 7.1 % 15.0-55.0 [facility] Thin prep Papanicolaou smear with manual screeningOrdered By: Heydi Amaya on 08-14-2023 Thin prep Papanicolaou smear with manual screening 285 mOsm/KG 280-301 [facility] Absolute lymphocyte countOrd ered By: Robert Allison on 08-13-2023 Lymphocytes Auto (Unsp spec) [#/Vol] 1.37 10*3/uL 0.83-4.51 [facility] Basophil percentageOrdered B y: Robert Allison on 08-13-2023 Basophil percentage 10-25 SEEN /hpf 0-5 [facility] Lactate [Moles/Vol] 1.2 mmol/L 0.4-2.0 [facility] Basophils/100 WBC (Bld) 0.3 % 0-1 [facility] Bilirubin [Mass/Vol] 0.60 mg/dL 0.20-1.00 [facility] Comment on above: For patients on eltr ombopag therapy, use of Dimension [place] TBIL is not recommended. Chloride [Moles/Vol] 92 mmol/L 98-107 [facility] Eosinophils/100 WBC (Bld) 0.1 % 0-5 [facility] Glucose [Mass/Vol] 212 mg/dL 74-106 [facility] Comment on above: Glucose result great er than or equal to 200 mg/dLsuggests DIABETES MELLITUS per A.D.A. criteria. Neutrophils (Bld) [#/Vol] 12.1 10*3/uL 2.0-7.7 [facility] Neutrophils/100 WBC (Bld) 82.7 % 47-70 [facility] Potassium [Moles/Vol] 3.8 mmol/L 3.5-5.1 [facility] Comment on above: Moderate Hemolysis, Result may be falsely increased. Protein [Mass/Vol] 7.8 g/dL 6.4-8.2 [facility] Sodium [Moles/Vol] 127 mmol/L 136-145 [facility] WBC (Bld) [#/Vol] 14.7 10*3/uL 4.4-11.0 [facility] Bilirubin Test strip Ql (U)O rdered By: Robert Allison on 08-13-2023 Bilirubin Ql (U) Negative Negative [facility] Blood erythrocytes count (nu mber/volume)Ordered By: Robert Allison on 08-13-2023 RBC (Bld) [#/Vol] 3.83 10*6/uL 4.2-5.4 [facility] Blood hemoglobin measurement (mass/volume)Ordered By: Robert Allison on 08-13-2023 Hemoglobin (Bld) [Mass/Vol] 10.0 g/dL 12.0-15.0 [facility] Blood lymphocytes/100 leukoc ytesOrdered By: Robert Allison on 08-13-2023 Lymphocytes/100 WBC (Bld) 9.4 % 19-41 [facility] Blood monocytes/100 leukocyt esOrdered By: Robert Allison on 08-13-2023 Monocytes/100 WBC (Bld) 6.1 % 0-10 [facility] Blood platelet mean volumeOr dered By: Robert Allison on 08-13-2023 Platelet mean volume (Bld) [Entitic vol] 10.8 fL 6.2-12.0 [facility] Culture, urineOrdered By: Ester Allison on 08-13-2023 Bacteria identified Cx Nom (U) Klebsiella pneumoniae sp pneum [facility] Determination of erythrocyte mean corpuscular volume (MCV)Ordered By: Robert Allison on 08-13-2023 MCV (RBC) [Entitic vol] 85.1 fL 81-99 [facility] Hematocrit Auto (Bld) [Volum e fraction]Ordered By: Robert Allison on 08-13-2023 Hematocrit (Bld) [Volume fraction] 32.6 % 37-47 [facility] Influenza virus A and B and SARS-CoV-2 (COVID-19) Ag panel - Upper respiratory specimOrdered By: Robert Allison on 08-13-2023 SARS-CoV-2 (COVID-19) RNA BEBETO+probe Ql (Resp) [facility] Ketones Test strip Ql (U)Ord ered By: Robert Allison on 08-13-2023 Ketones Ql (U) 50 mg/dl Negative [facility] Laboratory - Chemistry and C hemistry - challengeOrdered By: Heydi Amaya on 08-13-2023 Sodium (U) [Moles/Vol] 24 mmol/L Not Establ. [facility] Laboratory - Chemistry and C hemistry - challengeOrdered By: Robert Allison on 08-13-2023 ALP [Catalytic activity/Vol] 105 U/L 45-117 [facility] ALT [Catalytic activity/Vol] 29 U/L 13-56 [facility] CO2 [Moles/Vol] 23.0 mmol/L 21.0-32.0 [facility] Globulin (S) [Mass/Vol] 5.6 g/dL 2.2-4.2 [facility] Urea nitrogen/Creatinine [Mass ratio] 26.3 mg/mg 10-20 [facility] Laboratory - Hematology and Cell countsOrdered By: Robert Allison on 08-13-2023 Erythrocyte distribution width (RBC) [Entitic vol] 53.7 fL 35.1-43.9 [facility] Erythrocyte distribution width (RBC) [Ratio] 17.2 % 11.6-14.6 [facility] Immature granulocytes/100 WBC (Bld) 1.400 % 0.0-0.9 [facility] Comment on above: IG% - Immature Granu locytes (promyelocytes, myelocytes and metamyelocytes) > 1% indicates that a LEFT SHIFT is Present. 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 [facility] Urine Urea Nitrogen 334 mg/dL NO RANGE EST. [facility] No Panel InformationOrdered By: Remus Allison on 08-13-2023 Estimated Creatinine Clearance Calc 31.98 ml/min [facility] Estimated GFR (MDRD) Amer 57 mL/min >60 [facility] Comment on above: GFR Calc Estimated GFR (MDRD) Non-Af Amer 47 mL/min >60 [facility] Comment on above: Non- GFR Calc Troponin I High Sensitivity 39 pg/mL 3.0-54.0 [facility] Comment on above: Please Note: New Rosi t Units and Gender Specific Reference Ranges. For more information see Policy Stat Procedure [place] High Sensitivity Troponin (TNIH) and attachments. Platelets bldOrdered By: Rem us Keegan on 08-13-2023 Platelets (Bld) [#/Vol] 412 10*3/uL 150-450 [facility] Protein Test strip Ql (U)Ord ered By: Remus Ungmasood on 08-13-2023 Protein Ql (U) 30 mg/dl Negative [facility] Serum or plasma albumin melanie urement (mass/volume)Ordered By: Remus Ungmasood on 08-13-2023 Albumin [Mass/Vol] 2.2 g/dL 3.2-5.0 [facility] Serum or plasma albumin/glob ulin mass ratioOrdered By: Remus Ungmasood on 08-13-2023 Albumin/Globulin [Mass ratio] 0.4 {ratio} 0.9-2.4 [facility] Serum or plasma calcium melanie urement (mass/volume)Ordered By: Robert Allison on 08-13-2023 Calcium [Mass/Vol] 10.5 mg/dL 8.5-10.1 [facility] Serum or plasma creatinine m easurement (mass/volume)Ordered By: Robert Allison on 08-13-2023 Creatinine [Mass/Vol] 1.18 mg/dL 0.55-1.02 [facility] Comment on above: The validity of the calculated GFR & GFRAA in patients over 70 years has not been determined. Clinical correlation is essential. Serum or plasma urea nitroge n measurement (mass/volume)Ordered By: Robert Allison on 08-13-2023 Urea nitrogen [Mass/Vol] 31 mg/dL - [facility] Squamous epithelial cells de tection in urine sediment by light microscopyOrdered By: Robert Allison on 08-13-2023 Epithelial cells.squamous LM Ql (Urine sed) 0 SEEN /hpf 5-10 [facility] Thin prep Papanicolaou smear with manual screeningOrdered By: Heydi Amaya on 08-13-2023 Thin prep Papanicolaou smear with manual screening 20 mmol/L Not Establ. [facility] Thin prep Papanicolaou smear with manual screeningOrdered By: Robert Allison on 08-13-2023 Thin prep Papanicolaou smear with manual screening 36 U/L 15-37 [facility] Comment on above: Moderate Hemolysis, Result may be falsely increased. Thin prep Papanicolaou smear with manual screening 01-12 [facility] Upper respiratory specimen i nfluenza A virus, influenza B virus, and severe acute resOrdered By: Robert Allison on 08-13-2023 Upper respiratory specimen influenza A virus, influenza B virus, and severe acute res [facility] Urine blood detectionOrdered By: Robert Allison on 08-13-2023 RBC Ql (U) 50 /ul Negative [facility] RBC Ql (U) 0-5 SEEN /hpf 0-5 [facility] Urine clarityOrdered By: Harriet Allison on 08-13-2023 Clarity (U) Sl. Cloudy Clear [facility] Urine color determinationOrd ered By: Robert Allison on 08-13-2023 Color (U) Yellow Yellow [facility] Urine creatinine measurement (mass/volume)Ordered By: Heydi Amaya on 08-13-2023 Creatinine (U) [Mass/Vol] 37.60 mg/dL NO RANGE EST. [facility] Urine glucose detectionOrder ed By: Robert Allison on 08-13-2023 Glucose Ql (U) 1000 mg/dl Normal [facility] Urine leukocyte esterase det ection by dipstickOrdered By: Robert Allison on 08-13-2023 Leukocyte esterase Test strip Ql (U) 500 /ul Negative [facility] Urine osmolality measurement Ordered By: Heydi Amaya on 08-13-2023 Osmolality (U) [Osmolality] 269 mOsm/KG >50 [facility] Comment on above: Normal Urine Referen ce Ranges Random: 50 - 1200 mOsm/kg H20 depending on fluid intake Random: >850 mOsm/kg after 12 hour fluid restriction 24 hour: ~300 - 900 mOsm/kg H2O Urine pHOrdered By: Robert sibley on 08-13-2023 pH (U) 5.0 [pH] 5.0 - 8.0 [facility] Urine sediment bacteria coun t by microscopy (number/high power field)Ordered By: Robert Allison on 08-13-2023 Bacteria LM.HPF (Urine sed) [#/Area] 3 /[HPF] None Seen [facility] Urine specific gravity measu rementOrdered By: Robert Allison on 08-13-2023 Specific gravity (U) [Rel density] 1.015 1.002-1.030 [facility] Urobilinogen Auto test strip Ql (U)Ordered By: Robert Allison on 08-13-2023 Urobilinogen Ql (U) Normal mg/dl Normal [facility] Absolute lymphocyte countOrd ered By: Winston Gill on 07-18-2023 Lymphocytes Auto (Unsp spec) [#/Vol] 0.92 10*3/uL 0.83-4.51 [facility] Basophil percentageOrdered B y: Winston Gill on 07-18-2023 Basophil percentage >100 SEEN /hpf 0-5 [facility] Basophils/100 WBC (Bld) 0.4 % 0-1 [facility] Bilirubin [Mass/Vol] 0.40 mg/dL 0.20-1.00 [facility] Comment on above: For patients on eltr ombopag therapy, use of Dimension [place] TBIL is not recommended. Chloride [Moles/Vol] 95 mmol/L 98-107 [facility] Eosinophils/100 WBC (Bld) 0.7 % 0-5 [facility] Glucose [Mass/Vol] 139 mg/dL 74-106 [facility] Comment on above: Fasting Glucose resu lt greater than or equal to 126 mg/dL suggests DIABETES MELLITUS per A.D.A. criteria. Neutrophils (Bld) [#/Vol] 5.4 10*3/uL 2.0-7.7 [facility] Neutrophils/100 WBC (Bld) 76.5 % 47-70 [facility] Potassium [Moles/Vol] 3.7 mmol/L 3.5-5.1 [facility] Protein [Mass/Vol] 7.4 g/dL 6.4-8.2 [facility] Sodium [Moles/Vol] 131 mmol/L 136-145 [facility] WBC (Bld) [#/Vol] 7.0 10*3/uL 4.4-11.0 [facility] Bilirubin Test strip Ql (U)O rdered By: Winston Gill on 07-18-2023 Bilirubin Ql (U) Negative Negative [facility] Blood erythrocytes count (nu mber/volume)Ordered By: Winston Gill on 07-18-2023 RBC (Bld) [#/Vol] 3.85 10*6/uL 4.2-5.4 [facility] Blood hemoglobin measurement (mass/volume)Ordered By: Winston Gill on 07-18-2023 Hemoglobin (Bld) [Mass/Vol] 10.8 g/dL 12.0-15.0 [facility] Blood lymphocytes/100 leukoc ytesOrdered By: Winston Gill on 07-18-2023 Lymphocytes/100 WBC (Bld) 13.1 % 19-41 [facility] Blood monocytes/100 leukocyt esOrdered By: Winston Gill on 07-18-2023 Monocytes/100 WBC (Bld) 8.0 % 0-10 [facility] Blood platelet mean volumeOr dered By: Winston Gill on 07-18-2023 Platelet mean volume (Bld) [Entitic vol] 10.0 fL 6.2-12.0 [facility] Culture, urineOrdered By: Devyn Rea on 07-18-2023 Bacteria identified Cx Nom (U) Escherichia coli [facility] Bacteria identified Cx Nom (U) Klebsiella pneumoniae sp pneum [facility] Determination of erythrocyte mean corpuscular volume (MCV)Ordered By: Winston Gill on 07-18-2023 MCV (RBC) [Entitic vol] 87.0 fL 81-99 [facility] Hematocrit Auto (Bld) [Volum e fraction]Ordered By: Winston Gill on 07-18-2023 Hematocrit (Bld) [Volume fraction] 33.5 % 37-47 [facility] Ketones Test strip Ql (U)Ord ered By: Winston Gill on 07-18-2023 Ketones Ql (U) 50 mg/dl Negative [facility] Laboratory - Chemistry and C hemistry - challengeOrdered By: Winston Gill on 07-18-2023 ALP [Catalytic activity/Vol] 93 U/L 45-117 [facility] ALT [Catalytic activity/Vol] 13 U/L 13-56 [facility] CO2 [Moles/Vol] 27.0 mmol/L 21.0-32.0 [facility] Globulin (S) [Mass/Vol] 4.8 g/dL 2.2-4.2 [facility] Urea nitrogen/Creatinine [Mass ratio] 15.6 mg/mg 10-20 [facility] Laboratory - Hematology and Cell countsOrdered By: Winston Gill on 07-18-2023 Erythrocyte distribution width (RBC) [Entitic vol] 52.4 fL 35.1-43.9 [facility] Erythrocyte distribution width (RBC) [Ratio] 16.4 % 11.6-14.6 [facility] Immature granulocytes/100 WBC (Bld) 1.300 % 0.0-0.9 [facility] Comment on above: IG% - Immature Granu locytes (promyelocytes, myelocytes and metamyelocytes) > 1% indicates that a LEFT SHIFT is Present. MCH (RBC) [Entitic mass] 28.1 pg 27.0-32.0 [facility] Nucleated RBC/100 WBC (Bld) [Ratio] 0 % 0-5 [facility] MCHC Auto (RBC) [Mass/Vol]Or dered By: Winston Gill on 07-18-2023 MCHC (RBC) [Mass/Vol] 32.2 g/dL 32-36 [facility] Mucus LM Ql (Urine sed)Order ed By: Winston Gill on 07-18-2023 Mucus Ql (Urine sed) 0 SEEN /hpf [facility] Nitrite Test strip Ql (U)Ord ered By: Winston Gill on 07-18-2023 Nitrite Ql (U) Negative Negative [facility] No Panel InformationOrdered By: Winston Gill on 07-18-2023 Estimated Creatinine Clearance Calc 45.46 ml/min [facility] Estimated GFR (MDRD) Amer 85 mL/min >60 [facility] Comment on above: GFR Calc Estimated GFR (MDRD) Non-Af Amer 70 mL/min >60 [facility] Comment on above: Non- GFR Calc Platelets bldOrdered By: Tre Gill on 07-18-2023 Platelets (Bld) [#/Vol] 370 10*3/uL 150-450 [facility] Protein Test strip Ql (U)Ord ered By: Winston Gill on 07-18-2023 Protein Ql (U) 100 mg/dl Negative [facility] Serum or plasma albumin melanie urement (mass/volume)Ordered By: Winston Gill on 07-18-2023 Albumin [Mass/Vol] 2.6 g/dL 3.2-5.0 [facility] Serum or plasma albumin/glob ulin mass ratioOrdered By: Winston Gill on 07-18-2023 Albumin/Globulin [Mass ratio] 0.5 {ratio} 0.9-2.4 [facility] Serum or plasma calcium melanie urement (mass/volume)Ordered By: Winston Gill on 07-18-2023 Calcium [Mass/Vol] 10.3 mg/dL 8.5-10.1 [facility] Serum or plasma creatinine m easurement (mass/volume)Ordered By: Winston Gill on 07-18-2023 Creatinine [Mass/Vol] 0.83 mg/dL 0.55-1.02 [facility] Comment on above: The validity of the calculated GFR & GFRAA in patients over 70 years has not been determined. Clinical correlation is essential. Serum or plasma urea nitroge n measurement (mass/volume)Ordered By: Winston Gill on 07-18-2023 Urea nitrogen [Mass/Vol] 13 mg/dL 7-18 [facility] Squamous epithelial cells de tection in urine sediment by light microscopyOrdered By: Winston Gill on 07-18-2023 Epithelial cells.squamous LM Ql (Urine sed) 5-10 SEEN /hpf 5-10 [facility] Thin prep Papanicolaou smear with manual screeningOrdered By: Winston Gill on 07-18-2023 Thin prep Papanicolaou smear with manual screening 26 U/L 15-37 [facility] Thin prep Papanicolaou smear with manual screening 9 5-15 [facility] Urine blood detectionOrdered By: Winston Gill on 07-18-2023 RBC Ql (U) 50 /ul Negative [facility] RBC Ql (U) 0-5 SEEN /hpf 0-5 [facility] Urine clarityOrdered By: Tre Gill on 07-18-2023 Clarity (U) Cloudy Clear [facility] Urine color determinationOrd ered By: Winston Gill on 07-18-2023 Color (U) Yellow Yellow [facility] Urine glucose detectionOrder ed By: Winston Gill on 07-18-2023 Glucose Ql (U) 1000 mg/dl Normal [facility] Urine leukocyte esterase det ection by dipstickOrdered By: Winston Gill on 07-18-2023 Leukocyte esterase Test strip Ql (U) 500 /ul Negative [facility] Urine pHOrdered By: Winston castillo on 07-18-2023 pH (U) 5.0 [pH] 5.0 - 8.0 [facility] Urine sediment bacteria coun t by microscopy (number/high power field)Ordered By: Winston Gill on 07-18-2023 Bacteria LM.HPF (Urine sed) [#/Area] 3 /[HPF] None Seen [facility] Urine sediment leukocyte lisandro t count by microscopy (number/low power field)Ordered By: Winston Gill on 07-18-2023 WBC casts LM.LPF (Urine sed) [#/Area] 0-5 SEEN /lpf None Seen [facility] Urine specific gravity measu rementOrdered By: Winston Gill on 07-18-2023 Specific gravity (U) [Rel density] 1.020 1.002-1.030 [facility] Urobilinogen Auto test strip Ql (U)Ordered By: Winston Gill on 07-18-2023 Urobilinogen Ql (U) 1 mg/dl Normal [facility] No Panel Informationon 07-15 POC SARS CoV-2 Antigen Negative [facility] Amorphous sediment detection in urine sediment by light microscopyOrdered By: Cheryl Mendez on 06-01-2023 Amorphous sediment LM Ql (Urine sed) 1+ URATE [facility] Basophil percentageOrdered B y: Cheryl Mendez on 06-01-2023 Basophil percentage 5-10 SEEN /hpf 0-5 [facility] Bilirubin Test strip Ql (U)O rdered By: Cheryl Mendez on 06-01-2023 Bilirubin Ql (U) Negative Negative [facility] Ketones Test strip Ql (U)Ord ered By: Cheryl Mendez on 06-01-2023 Ketones Ql (U) Negative Negative [facility] Mucus LM Ql (Urine sed)Order ed By: Cheryl Mendez on 06-01-2023 Mucus Ql (Urine sed) 0 SEEN /hpf [facility] Nitrite Test strip Ql (U)Ord ered By: Cheryl Mendez on 06-01-2023 Nitrite Ql (U) Negative Negative [facility] No Panel InformationOrdered By: Cheryl Mendez on 06-01-2023 Urine Microalbumin/Creatinine Ratio 173.1 mg/g CRE <30 [facility] Protein Test strip Ql (U)Ord ered By: Cheryl Mendez on 06-01-2023 Protein Ql (U) 15 mg/dl Negative [facility] Squamous epithelial cells de tection in urine sediment by light microscopyOrdered By: Cheryl Mendez on 06-01-2023 Epithelial cells.squamous LM Ql (Urine sed) 0-5 SEEN /hpf 5-10 [facility] Thin prep Papanicolaou smear with manual screeningOrdered By: Cheryl Mendez on 06-01-2023 Thin prep Papanicolaou smear with manual screening 98.3 mg/L NO RANGE EST. [facility] Urine blood detectionOrdered By: Cheryl Mendez on 06-01-2023 RBC Ql (U) 25 /ul Negative [facility] RBC Ql (U) 0-5 SEEN /hpf 0-5 [facility] Urine clarityOrdered By: Dyana Mendez on 06-01-2023 Clarity (U) Cloudy Clear [facility] Urine color determinationOrd ered By: Cheryl Mendez on 06-01-2023 Color (U) Yellow Yellow [facility] Urine creatinine measurement (mass/volume)Ordered By: Cheryl Mendez on 06-01-2023 Creatinine (U) [Mass/Vol] 56.80 mg/dL NO RANGE EST. [facility] Urine glucose detectionOrder ed By: Cheryl Mendez on 06-01-2023 Glucose Ql (U) 1000 mg/dl Normal [facility] Urine leukocyte esterase det ection by dipstickOrdered By: Cheryl Mendez on 06-01-2023 Leukocyte esterase Test strip Ql (U) 100 /ul Negative [facility] Urine pHOrdered By: Nikki Mendez on 06-01-2023 pH (U) 5.0 [pH] 5.0 - 8.0 [facility] Urine sediment bacteria coun t by microscopy (number/high power field)Ordered By: Cheryl Mendez on 06-01-2023 Bacteria LM.HPF (Urine sed) [#/Area] 3 /[HPF] None Seen [facility] Urine specific gravity measu rementOrdered By: Cheryl Mendez on 06-01-2023 Specific gravity (U) [Rel density] 1.015 1.002-1.030 [facility] Urobilinogen Auto test strip Ql (U)Ordered By: Cheryl Mendez on 06-01-2023 Urobilinogen Ql (U) Normal mg/dl Normal [facility] Basophil percentageOrdered B y: Cheryl Mendez on 05-27-2023 Basophil percentage 2.7 mg[facility] Chloride [Moles/Vol] 102 mmol/L 98-[address] [facility] [address] [facility] Glucose [Mass/Vol] 220 mg/dL 74-106 [facility] Comment on above: Glucose result great er than or equal to 200 mg/dLsuggests DIABETES MELLITUS per A.D.A. criteria. Potassium [Moles/Vol] 3.9 mmol/L 3.5-5.1 [facility] Sodium [Moles/Vol] 137 mmol/L 136-145 [facility] Laboratory - Chemistry and C hemistry - challengeOrdered By: Cheryl Mendez on 05-27-2023 CO2 [Moles/Vol] 28.0 mmol/L 21.0-32.0 [facility] Urea nitrogen/Creatinine [Mass ratio] 10.0 mg/mg 10-20 [facility] No Panel InformationOrdered By: Cheryl Mendez on 05-27-2023 Estimated GFR (MDRD) Amer 89 mL/min >60 [facility] Comment on above: GFR Calc Estimated GFR (MDRD) Non-Af Amer 73 mL/min >60 [facility] Comment on above: Non- GFR Calc Parathyroid Hormone (Intact) 164.3 pg/mL 18.4-80.1 [facility] Vitamin D 25-Hydroxy 45.4 ng/mL [facility] Comment on above: Vitamin D 25(OH) Sta tus Range Deficiency <20 ng/mL (50nmol/L) Insufficiency 20 - 30 ng/mL (50 - 75 nmol/L) Sufficiency 30 - 100 ng/mL (75 - 250 nmol/L) Toxicity >100 ng/mL (>250 nmol/L) Serum or plasma albumin melanie urement (mass/volume)Ordered By: Cheryl Mendez on 05-27-2023 Albumin [Mass/Vol] 2.9 g/dL 3.2-5.0 [facility] Serum or plasma calcium melanie urement (mass/volume)Ordered By: Cheryl Mendez on 05-27-2023 Calcium [Mass/Vol] 10.7 mg/dL 8.5-10.1 [facility] Serum or plasma creatinine m easurement (mass/volume)Ordered By: Cheryl Mendez on 05-27-2023 Creatinine [Mass/Vol] 0.80 mg/dL 0.55-1.02 [facility] Comment on above: The validity of the calculated GFR & GFRAA in patients over 70 years has not been determined. Clinical correlation is essential. Serum or plasma urea nitroge n measurement (mass/volume)Ordered By: Cheryl Mendez on 09-27-2023 Urea nitrogen [Mass/Vol] 8 mg/dL 7-18 [facility] Culture, urineOrdered By: Allan lobatostu Silvio on 03-24-2023 Bacteria identified Cx Nom (U) Klebsiella pneumoniae sp pneum [facility] Bacteria identified Cx Nom (U) Klebsiella pneumoniae sp pneum [facility] Absolute lymphocyte countOrd ered By: Dr. Smiley on 01-28-2023 Lymphocytes Auto (Unsp spec) [#/Vol] 3.27 10*3/uL 0.83-4.51 [facility] Absolute lymphocyte countOrd ered By: Dr. Lockwood on 01-28-2023 Lymphocytes Auto (Unsp spec) [#/Vol] 2.27 10*3/uL 0.83-4.51 [facility] Basophil percentageOrdered B y: Dr. Smiley on 01-28-2023 Basophils/100 WBC (Bld) 0.5 % 0-1 [facility] Bilirubin [Mass/Vol] 0.30 mg/dL 0.20-1.00 [facility] Comment on above: For patients on eltr ombopag therapy, use of Dimension [place] TBIL is not recommended. Chloride [Moles/Vol] 99 mmol/L 98-107 [facility] Cholesterol [Mass/Vol] 145 mg/dL <200 [facility] Comment on above: <200 mg/dL Desirable 200-240 mg/dL Borderline >240 mg/dL High Risk Eosinophils/100 WBC (Bld) 2.3 % 0-5 [facility] Glucose [Mass/Vol] 182 mg/dL 74-106 [facility] Comment on above: Fasting Glucose resu lt greater than or equal to 126 mg/dL suggests DIABETES MELLITUS per A.D.A. criteria. Neutrophils (Bld) [#/Vol] 3.9 10*3/uL 2.0-7.7 [facility] Neutrophils/100 WBC (Bld) 50.0 % 47-70 [facility] Potassium [Moles/Vol] 3.6 mmol/L 3.5-5.1 [facility] Protein [Mass/Vol] 7.9 g/dL 6.4-8.2 [facility] Sodium [Moles/Vol] 134 mmol/L 136-145 [facility] Triglyceride [Mass/Vol] 119 mg/dL <199 [facility] Comment on above: The drugs N-Acetylcy steine and Metamizole may falsely depress this assay.Serum Triglycerides Reference Interval Normal <150 mg/dL Borderline high 150 - 199 mg/dL High 200 - 499 mg/dL Very High > or = 500 mg/dL WBC (Bld) [#/Vol] 7.7 10*3/uL 4.4-11.0 [facility] Basophil percentageOrdered B y: Dr. Lockwood on 01-28-2023 Basophils/100 WBC (Bld) 0.8 % 0-1 [facility] Chloride [Moles/Vol] 102 mmol/L 98-107 [facility] Eosinophils/100 WBC (Bld) 2.6 % 0-5 [facility] Glucose [Mass/Vol] 137 mg/dL 74-106 [facility] Comment on above: Fasting Glucose resu lt greater than or equal to 126 mg/dL suggests DIABETES MELLITUS per A.D.A. criteria. Neutrophils (Bld) [#/Vol] 3.8 10*3/uL 2.0-7.7 [facility] Neutrophils/100 WBC (Bld) 56.6 % 47-70 [facility] Potassium [Moles/Vol] 3.8 mmol/L 3.5-5.1 [facility] Protein [Mass/Vol] 7.4 g/dL 6.4-8.2 [facility] Sodium [Moles/Vol] 136 mmol/L 136-145 [facility] WBC (Bld) [#/Vol] 6.6 10*3/uL 4.4-11.0 [facility] Blood erythrocytes count (nu mber/volume)Ordered By: Dr. Smiley on 01-28-2023 RBC (Bld) [#/Vol] 4.10 10*6/uL 4.2-5.4 [facility] Blood erythrocytes count (nu mber/volume)Ordered By: Dr. Lockwood on 01-28-2023 RBC (Bld) [#/Vol] 3.83 10*6/uL 4.2-5.4 [facility] Blood hemoglobin measurement (mass/volume)Ordered By: Dr. Smiley on 01-28-2023 Hemoglobin (Bld) [Mass/Vol] 11.5 g/dL 12.0-15.0 [facility] Blood hemoglobin measurement (mass/volume)Ordered By: Dr. Lockwood on 01-28-2023 Hemoglobin (Bld) [Mass/Vol] 11.1 g/dL 12.0-15.0 [facility] Blood lymphocytes/100 leukoc ytesOrdered By: Dr. Smiley on 01-28-2023 Lymphocytes/100 WBC (Bld) 42.3 % 19-41 [facility] Blood lymphocytes/100 leukoc ytesOrdered By: Dr. Lockwood on 01-28-2023 Lymphocytes/100 WBC (Bld) 34.2 % 19-41 [facility] Blood monocytes/100 leukocyt esOrdered By: Dr. Smiley on 01-28-2023 Monocytes/100 WBC (Bld) 4.8 % 0-10 [facility] Blood monocytes/100 leukocyt esOrdered By: Dr. Lockwood on 01-28-2023 Monocytes/100 WBC (Bld) 5.6 % 0-10 [facility] Blood platelet mean volumeOr dered By: Dr. Smiley on 01-28-2023 Platelet mean volume (Bld) [Entitic vol] 9.8 fL 6.2-12.0 [facility] Blood platelet mean volumeOr dered By: Dr. Lockwood on 01-28-2023 Platelet mean volume (Bld) [Entitic vol] 9.3 fL 6.2-12.0 [facility] Determination of erythrocyte mean corpuscular volume (MCV)Ordered By: Dr. Smiley on 01-28-2023 MCV (RBC) [Entitic vol] 90.7 fL 81-99 [facility] Determination of erythrocyte mean corpuscular volume (MCV)Ordered By: Dr. Lockwood on 01-28-2023 MCV (RBC) [Entitic vol] 87.7 fL 81-99 [facility] Hematocrit Auto (Bld) [Volum e fraction]Ordered By: Dr. Smiley on 01-28-2023 Hematocrit (Bld) [Volume fraction] 37.2 % 37-47 [facility] Hematocrit Auto (Bld) [Volum e fraction]Ordered By: Dr. Lockwood on 01-28-2023 Hematocrit (Bld) [Volume fraction] 33.6 % 37-47 [facility] Laboratory - Chemistry and C hemistry - challengeOrdered By: Dr. Smiley on 01-28-2023 ALP [Catalytic activity/Vol] 153 U/L 45-117 [facility] ALT [Catalytic activity/Vol] 20 U/L 13-56 [facility] CO2 [Moles/Vol] 25.0 mmol/L 21.0-32.0 [facility] Globulin (S) [Mass/Vol] 4.9 g/dL 2.2-4.2 [facility] Urea nitrogen/Creatinine [Mass ratio] 10.7 mg/mg 10- [facility] - Chemistry and C hemistry - challengeOrdered By: Dr. Lockwood on 01-28-2023 ALP [Catalytic activity/Vol] 140 U/L 45-117 [facility] CO2 [Moles/Vol] 27.0 mmol/L 21.0-32.0 [facility] Free T4 [Mass/Vol] 1.11 ng/dL 0.76-1.46 [facility] Globulin (S) [Mass/Vol] 4.5 g/dL 2.2-4.2 [facility] Urea nitrogen/Creatinine [Mass ratio] 11.5 mg/mg 10 [facility] - Hematology and Cell countsOrdered By: Dr. Smiley on 01-28-2023 Erythrocyte distribution width (RBC) [Entitic vol] 49.7 fL 35.1-43.9 [facility] Erythrocyte distribution width (RBC) [Ratio] 14.9 % 11.6-14.6 [facility] Immature granulocytes/100 WBC (Bld) 0.100 % 0.0-0.9 [facility] Comment on above: IG% - Immature Granu locytes (promyelocytes, myelocytes and metamyelocytes) > 1% indicates that a LEFT SHIFT is Present. MCH (RBC) [Entitic mass] 28.0 pg 27.0-32.0 [facility] Nucleated RBC/100 WBC (Bld) [Ratio] 0 % 0-5 [facility] - Hematology and Cell countsOrdered By: Dr. Locwkood on 01-28-2023 Erythrocyte distribution width (RBC) [Entitic vol] 47.3 fL 35.1-43.9 [facility] Erythrocyte distribution width (RBC) [Ratio] 14.8 % 11.6-14.6 [facility] Immature granulocytes/100 WBC (Bld) 0.200 % 0.0-0.9 [facility] Comment on above: IG% - Immature Granu locytes (promyelocytes, myelocytes and metamyelocytes) > 1% indicates that a LEFT SHIFT is Present. MCH (RBC) [Entitic mass] 29.0 pg 27.0-32.0 [facility] MCHC Auto (RBC) [Mass/Vol]Or dered By: Dr. Smiley on 01-28-2023 MCHC (RBC) [Mass/Vol] 30.9 g/dL 32-36 [facility] MCHC Auto (RBC) [Mass/Vol]Or dered By: Dr. Lockwood on 01-28-2023 MCHC (RBC) [Mass/Vol] 33.0 g/dL 32-36 [facility] Comment on above: Delta: 30.9 on 01/28 No Panel InformationOrdered By: Dr. Lockwood on 01-28-2023 Estimated Creatinine Clearance Calc 37.74 ml/min [facility] Estimated GFR (MDRD) Amer 91 mL/min >60 [facility] Comment on above: GFR Calc Estimated GFR (MDRD) Non-Af Amer 75 mL/min >60 [facility] Comment on above: Non- GFR Calc Free Triiodothyronine (T3) pg/dL 2.9 pg/mL 2.18-3.98 [facility] No Panel InformationOrdered By: Dr. Smiley on 01-28-2023 Estimated GFR (MDRD) Amer 84 mL/min >60 [facility] Comment on above: GFR Calc Estimated GFR (MDRD) Non-Af Amer 70 mL/min >60 [facility] Comment on above: Non- GFR Calc Parathyroid Hormone (Intact) 112.9 pg/mL 18.4-80.1 [facility] Thyroid Stimulating Hormone (TSH) 0.02 uIU/mL 0.358-3.74 [facility] Vitamin D 25-Hydroxy 66.1 ng/mL [facility] Comment on above: Vitamin D 25(OH) Sta tus Range Deficiency <20 ng/mL (50nmol/L) Insufficiency 20 - 30 ng/mL (50 - 75 nmol/L) Sufficiency 30 - 100 ng/mL (75 - 250 nmol/L) Toxicity >100 ng/mL (>250 nmol/L) Platelets bldOrdered By: Dr. Smiley on 01-28-2023 Platelets (Bld) [#/Vol] 349 10*3/uL 150-450 [facility] Platelets bldOrdered By: Dr. Lockwood on 01-28-2023 Platelets (Bld) [#/Vol] 285 10*3/uL 150-450 [facility] Serum or plasma albumin melanie urement (mass/volume)Ordered By: Dr. Smiley on 01-28-2023 Albumin [Mass/Vol] 3.0 g/dL 3.2-5.0 [facility] Serum or plasma albumin melanie urement (mass/volume)Ordered By: Dr. Lockwood on 01-28-2023 Albumin [Mass/Vol] 2.9 g/dL 3.2-5.0 [facility] Serum or plasma albumin/glob ulin mass ratioOrdered By: Dr. Smiley on 01-28-2023 Albumin/Globulin [Mass ratio] 0.6 {ratio} 0.9-2.4 [facility] Serum or plasma calcium melanie urement (mass/volume)Ordered By: Dr. Smiley on 01-28-2023 Calcium [Mass/Vol] 11.5 mg/dL 8.5-10.1 [facility] Serum or plasma calcium melanie urement (mass/volume)Ordered By: Dr. Lockwood on 01-28-2023 Calcium [Mass/Vol] 11.4 mg/dL 8.5-10.1 [facility] Serum or plasma cholesterol in HDL measurement (mass/volume)Ordered By: Dr. Smiley on 01-28-2023 Cholesterol in HDL [Mass/Vol] 46 mg/dL >40 [facility] Comment on above: The drugs N-Acetylcy steine and Metamizole may falsely depress this assay. Reference Range HDL <40 mg/dL Low HDL Cholesterol HDL >or= 60 mg/dL High HDL Cholesterol Serum or plasma cholesterol in VLDL measurement (mass/volume)Ordered By: Dr. Smiley on 01-28-2023 Cholesterol in VLDL [Mass/Vol] 24 mg/dL 5-40 [facility] Serum or plasma creatinine m easurement (mass/volume)Ordered By: Dr. Smiley on 01-28-2023 Creatinine [Mass/Vol] 0.84 mg/dL 0.55-1.02 [facility] Comment on above: The validity of the calculated GFR & GFRAA in patients over 70 years has not been determined. Clinical correlation is essential. Serum or plasma creatinine m easurement (mass/volume)Ordered By: Dr. Lockwood on 01-28-2023 Creatinine [Mass/Vol] 0.78 mg/dL 0.55-1.02 [facility] Comment on above: The validity of the calculated GFR & GFRAA in patients over 70 years has not been determined. Clinical correlation is essential. Serum or plasma low density lipoprotein (LDL) cholesterol measurement (mass/volume)Ordered By: Dr. Smiley on 01-28-2023 Cholesterol in LDL [Mass/Vol] 75 mg/dL 0-130 [facility] Serum or plasma urea nitroge n measurement (mass/volume)Ordered By: Dr. Smiley on 01-28-2023 Urea nitrogen [Mass/Vol] 9 mg/dL 7-18 [facility] Thin prep Papanicolaou smear with manual screeningOrdered By: Dr. Smiley on 01-28-2023 Thin prep Papanicolaou smear with manual screening 22 U/L [facility] Thin prep Papanicolaou smear with manual screening 10 5-15 [facility] Thin prep Papanicolaou smear with manual screeningOrdered By: Dr. Lockwood on 01-28-2023 Thin prep Papanicolaou smear with manual screening 18 U/L [facility] Thin prep Papanicolaou smear with manual screening 7 5-15 [facility] Whole blood hemoglobin A1c/t otal hemoglobin ratio (mass fraction)Ordered By: Dr. Smiley on 01-28-2023 HbA1c (Bld) [Mass fraction] 7.5 % 3.8-5.6 [facility] Comment on above: Normal < 5.7 % Predi abetic 5.7 - 6.4 % Diabetic >or= 6.5 % Please note range changes. Basophil percentageOrdered B y: Dr. Smiley on 12-09-2022 Bilirubin [Mass/Vol] 0.20 mg/dL 0.20-1.00 [facility] Comment on above: For patients on eltr ombopag therapy, use of Dimension [place] TBIL is not recommended. Chloride [Moles/Vol] 101 mmol/L 98-107 [facility] Glucose [Mass/Vol] 168 mg/dL 74-106 [facility] Comment on above: Fasting Glucose resu lt greater than or equal to 126 mg/dL suggests DIABETES MELLITUS per A.D.A. criteria. Potassium [Moles/Vol] 3.7 mmol/L 3.5-5.1 [facility] Protein [Mass/Vol] 8.7 g/dL 6.4-8.2 [facility] Sodium [Moles/Vol] 133 mmol/L 136-145 [facility] Laboratory - Chemistry and C hemistry - challengeOrdered By: Dr. Smiley on 12-09-2022 ALP [Catalytic activity/Vol] 164 U/L 45-117 [facility] ALT [Catalytic activity/Vol] 27 U/L 13-56 [facility] CO2 [Moles/Vol] 25.0 mmol/L 21.0-32.0 [facility] Globulin (S) [Mass/Vol] 5.4 g/dL 2.2-4.2 [facility] Urea nitrogen/Creatinine [Mass ratio] 10.7 mg/mg 10-20 [facility] No Panel InformationOrdered By: Dr. Smiley on 12-09-2022 Estimated GFR (MDRD) Amer 67 mL/min >60 [facility] Comment on above: GFR Calc Estimated GFR (MDRD) Non-Af Amer 55 mL/min >60 [facility] Comment on above: Non- GFR Calc Parathyroid Hormone (Intact) 175.0 pg/mL 18.4-80.1 [facility] Vitamin D 25-Hydroxy 92.6 ng/mL [facility] Comment on above: Vitamin D 25(OH) Sta tus Range Deficiency <20 ng/mL (50nmol/L) Insufficiency 20 - 30 ng/mL (50 - 75 nmol/L) Sufficiency 30 - 100 ng/mL (75 - 250 nmol/L) Toxicity >100 ng/mL (>250 nmol/L) Serum or plasma albumin melanie urement (mass/volume)Ordered By: Dr. Smiley on 12-09-2022 Albumin [Mass/Vol] 3.3 g/dL 3.2-5.0 [facility] Serum or plasma albumin/glob ulin mass ratioOrdered By: Dr. Smiley on 12-09-2022 Albumin/Globulin [Mass ratio] 0.6 {ratio} 0.9-2.4 [facility] Serum or plasma calcium melanie urement (mass/volume)Ordered By: Dr. Smiley on 12-09-2022 Calcium [Mass/Vol] 11.4 mg/dL 8.5-10.1 [facility] Serum or plasma creatinine m easurement (mass/volume)Ordered By: Dr. Smiley on 12-09-2022 Creatinine [Mass/Vol] 1.03 mg/dL 0.55-1.02 [facility] Comment on above: The validity of the calculated GFR & GFRAA in patients over 70 years has not been determined. Clinical correlation is essential. Serum or plasma urea nitroge n measurement (mass/volume)Ordered By: Dr. Smiley on 12-09-2022 Urea nitrogen [Mass/Vol] 11 mg/dL 7-18 [facility] Thin prep Papanicolaou smear with manual screeningOrdered By: Dr. Smiley on 12-09-2022 Thin prep Papanicolaou smear with manual screening 20 U/L 15-37 [facility] Thin prep Papanicolaou smear with manual screening 7 5-15 [facility] Whole blood hemoglobin A1c/t otal hemoglobin ratio (mass fraction)Ordered By: Dr. Smiley on 12-09-2022 HbA1c (Bld) [Mass fraction] 7.4 % 3.8-5.6 [facility] Comment on above: Normal < 5.7 % Predi abetic 5.7 - 6.4 % Diabetic >or= 6.5 % Please note range changes. Absolute lymphocyte counton 07-14-2022 Lymphocytes Auto (Unsp spec) [#/Vol] 2.79 10*3/uL 0.83-4.51 [facility] Work Phone: Basophil percentageon 2021 Basophil percentage 25-50 SEEN /hpf 0-5 [facility] Work Phone: Basophils/100 WBC (Bld) 0.5 % 0-1 [facility] Work Phone: Bilirubin [Mass/Vol] 0.30 mg/dL 0.20-1.00 [facility] Work Phone: [phone] Comment on above: For patients on eltr ombopag therapy, use of Dimension [place] TBIL is not recommended. Chloride [Moles/Vol] 102 mmol/L 98-107 [facility] Work Phone: Eosinophils/100 WBC (Bld) 3.2 % 0-5 [facility] Work Phone: Glucose [Mass/Vol] 143 mg/dL 74-106 [facility] Work Phone: Comment on above: Fasting Glucose resu lt greater than or equal to 126 mg/dL suggests DIABETES MELLITUS per A.D.A. criteria. Neutrophils (Bld) [#/Vol] 4.5 10*3/uL 2.0-7.7 [facility] Work Phone: Neutrophils/100 WBC (Bld) 54.7 % 47-70 [facility] Work Phone: Potassium [Moles/Vol] 4.9 mmol/L 3.5-5.1 [facility] Work Phone: Comment on above: Moderate Hemolysis, Result may be falsely increased. Protein [Mass/Vol] 8.3 g/dL 6.4-8.2 [facility] Work Phone: Sodium [Moles/Vol] 136 mmol/L 136-145 [facility] Work Phone: WBC (Bld) [#/Vol] 8.1 10*3/uL 4.4-11.0 [facility] Work Phone: Bilirubin Test strip Ql (U)o n 07-14-2022 Bilirubin Ql (U) Negative Negative [facility] Work Phone: Blood erythrocytes count (nu mber/volume)on 07-14-2022 RBC (Bld) [#/Vol] 4.15 10*6/uL 4.2-5.4 [facility] Work Phone: Blood hemoglobin measurement (mass/volume)on 07-14-2022 Hemoglobin (Bld) [Mass/Vol] 12.0 g/dL 12.0-15.0 [facility] Work Phone: Blood lymphocytes/100 leukoc yteson 07-14-2022 Lymphocytes/100 WBC (Bld) 34.4 % 19-41 [facility] Work Phone: Blood monocytes/100 leukocyt eson 07-14-2022 Monocytes/100 WBC (Bld) 6.8 % 0-10 [facility] Work Phone: Blood platelet mean volumeon 07-14-2022 Platelet mean volume (Bld) [Entitic vol] 10.2 fL 6.2-12.0 [facility] Work Phone: Determination of erythrocyte mean corpuscular volume (MCV)on 07-14-2022 MCV (RBC) [Entitic vol] 90.8 fL 81-99 [facility] Work Phone: Hematocrit Auto (Bld) [Volum e fraction]on 07-14-2022 Hematocrit (Bld) [Volume fraction] 37.7 % 37-47 [facility] Work Phone: Ketones Test strip Ql (U)on 07-14-2022 Ketones Ql (U) Negative Negative [facility] Work Phone: Laboratory - Chemistry and C hemistry - challengeon 07-14-2022 ALP [Catalytic activity/Vol] 131 U/L 45-117 [facility] Work Phone: ALT [Catalytic activity/Vol] 33 U/L 13-56 [facility] Work Phone: CO2 [Moles/Vol] 31.0 mmol/L 21.0-32.0 [facility] Work Phone: Globulin (S) [Mass/Vol] 5.0 g/dL 2.2-4.2 [facility] Work Phone: Urea nitrogen/Creatinine [Mass ratio] 14.7 mg/mg 10-20 [facility] Work Phone: Laboratory - Hematology and Cell countson 07-14-2022 Erythrocyte distribution width (RBC) [Entitic vol] 49.9 fL 35.1-43.9 [facility] Work Phone: Erythrocyte distribution width (RBC) [Ratio] 15.1 % 11.6-14.6 [facility] Work Phone: Immature granulocytes/100 WBC (Bld) 0.400 % 0.0-0.9 [facility] Work Phone: Comment on above: IG% - Immature Granu locytes (promyelocytes, myelocytes and metamyelocytes) > 1% indicates that a LEFT SHIFT is Present. MCH (RBC) [Entitic mass] 28.9 pg 27.0-32.0 [facility] Work Phone: Nucleated RBC/100 WBC (Bld) [Ratio] 0 % 0-5 [facility] Work Phone: MCHC Auto (RBC) [Mass/Vol]on 07-14-2022 MCHC (RBC) [Mass/Vol] 31.8 g/dL 32-36 [facility] Work Phone: Mucus LM Ql (Urine sed)on Mucus Ql (Urine sed) 0 SEEN /hpf [facility] Work Phone: Nitrite Test strip Ql (U)on 07-14-2022 Nitrite Ql (U) Negative Negative [facility] Work Phone: No Panel Informationon 07-14 Estimated Creatinine Clearance Calc 40.37 ml/min [facility] Work Phone: Estimated GFR (MDRD) Amer 73 mL/min >60 [facility] Work Phone: Comment on above: GFR Calc Estimated GFR (MDRD) Non-Af Amer 60 mL/min >60 [facility] Work Phone: Comment on above: Non- GFR Calc Platelets bldon 07-14-2022 Platelets (Bld) [#/Vol] 267 10*3/uL 150-450 [facility] Work Phone: Protein Test strip Ql (U)on 07-14-2022 Protein Ql (U) 30 mg/dl Negative [facility] Work Phone: Serum or plasma albumin melanie urement (mass/volume)on 07-14-2022 Albumin [Mass/Vol] 3.3 g/dL 3.2-5.0 [facility] Work Phone: Serum or plasma albumin/glob ulin mass ratioon 07-14-2022 Albumin/Globulin [Mass ratio] 0.7 {ratio} 0.9-2.4 [facility] Work Phone: Serum or plasma calcium melanie urement (mass/volume)on 07-14-2022 Calcium [Mass/Vol] 11.4 mg/dL 8.5-10.1 [facility] Work Phone: Serum or plasma creatinine m easurement (mass/volume)on 07-14-2022 Creatinine [Mass/Vol] 0.95 mg/dL 0.55-1.02 [facility] Work Phone: Comment on above: The validity of the calculated GFR & GFRAA in patients over 70 years has not been determined. Clinical correlation is essential. Serum or plasma urea nitroge n measurement (mass/volume)on 07-14-2022 Urea nitrogen [Mass/Vol] 14 mg/dL 7-18 [facility] Work Phone: Squamous epithelial cells de tection in urine sediment by light microscopyon 07-14-2022 Epithelial cells.squamous LM Ql (Urine sed) 0-5 SEEN /hpf 5-10 [facility] Work Phone: Thin prep Papanicolaou smear with manual screeningon 07-14-2022 Thin prep Papanicolaou smear with manual screening 44 U/L 15-37 [facility] Work Phone: Comment on above: Moderate Hemolysis, Result may be falsely increased. Thin prep Papanicolaou smear with manual screening 3 5-15 [facility] Work Phone: Urine blood detectionon 07-01 RBC Ql (U) 25 /ul Negative [facility] Work Phone: RBC Ql (U) 0 SEEN /hpf 0-5 [facility] Work Phone: Urine clarityon 07-14-2022 Clarity (U) Sl. Cloudy Clear [facility] Work Phone: Urine color determinationon 07-14-2022 Color (U) Yellow Yellow [facility] Work Phone: Urine glucose detectionon Glucose Ql (U) 1000 mg/dl Normal [facility] Work Phone: Urine leukocyte esterase det ection by dipstickon 07-14-2022 Leukocyte esterase Test strip Ql (U) 500 /ul Negative [facility] Work Phone: Urine pHon 07-14-2022 pH (U) 6.0 [pH] 5.0 - 8.0 [facility] Work Phone: Urine sediment bacteria coun t by microscopy (number/high power field)on 07-14-2022 Bacteria LM.HPF (Urine sed) [#/Area] 3 /[HPF] None Seen [facility] Work Phone: Urine specific gravity measu rementon 07-14-2022 Specific gravity (U) [Rel density] 1.015 1.002-1.030 [facility] Work Phone: Urobilinogen Auto test strip Ql (U)on 07-14-2022 Urobilinogen Ql (U) Normal mg/dl Normal [facility] Work Phone: CBC W Auto Differential pane l (Bld)on 05-07-2022 Basophils (Bld) [#/Vol] 0.05 10*3/uL Normal <0.[address] [facility] Comment on above: Order Comment: Speci men Type: BLOOD SPECIMEN Ordering Facility: [facility] Address: [address] [place] [address] Performed By: #### 5 7021-8 #### [facility] CLIA [id number] [address] [place] [address] [place] Basophils/100 WBC (Bld) 0.7 % Normal [facility] Comment on above: Order Comment: Speci men Type: BLOOD SPECIMEN Ordering Facility: [facility] Address: [address] [place] [address] Performed By: #### 5 7021-8 #### [facility] CLIA [id number] [address] [place] [address] [place] Differential cell count method Nom (Bld) Auto Normal [facility] Comment on above: Order Comment: Speci men Type: BLOOD SPECIMEN Ordering Facility: [facility] Address: [address] [place] [address] Performed By: #### 5 7021-8 #### [facility] CLIA [id number] [address] [place] [address] [place] Eosinophils (Bld) [#/Vol] 0.32 10*3/uL Normal <0.[address] [facility] Comment on above: Order Comment: Speci men Type: BLOOD SPECIMEN Ordering Facility: [facility] Address: [address] [place] [address] Performed By: #### 5 7021-8 #### [facility] CLIA [id number] [address] [place] [address] [place] Eosinophils/100 WBC (Bld) 4.7 % Normal [facility] Comment on above: Order Comment: Speci men Type: BLOOD SPECIMEN Ordering Facility: [facility] Address: [address] [place] [address] Performed By: #### 5 7021-8 #### [facility] CLIA [id number] [address] [place] [address] [place] Erythrocyte distribution width (RBC) [Ratio] 14.6 % Normal 11.5-15.[address] [facility] Comment on above: Order Comment: Speci men Type: BLOOD SPECIMEN Ordering Facility: [facility] Address: [address] [place] [address] Performed By: #### 5 7021-8 #### [facility] CLIA [id number] [address] [place] [address] [place] Hematocrit (Bld) [Volume fraction] 37.2 % Normal 36.0-46.[address] [facility] Comment on above: Order Comment: Speci men Type: BLOOD SPECIMEN Ordering Facility: [facility] Address: [address] [place] [address] Performed By: #### 5 7021-8 #### [id number] [address] [place] [address] [place] Hemoglobin (Bld) [Mass/Vol] 12.0 g/dL Normal 11.5-15.[address] [facility] Comment on above: Order Comment: Speci men Type: BLOOD SPECIMEN Ordering Facility: [facility] Address: [address] [place] [address] Performed By: #### 5 7021-8 #### [facility] [id number] [address] [place] [address] [place] IMMATURE GRAN % 0.1 % Normal [facility] Comment on above: Order Comment: Speci men Type: BLOOD SPECIMEN Ordering Facility: [facility] Address: [address] [place] [address] Performed By: #### 5 7021-8 #### [facility] [id number] [address] [place] [address] [place] IMMATURE GRAN ABS <0.03 Normal <0.10 [facility] Comment on above: Order Comment: Speci men Type: BLOOD SPECIMEN Ordering Facility: [facility] Address: [address] Performed By: #### 5 7021-8 #### [facility] CLIA [id number] [address] [place] [address] [place] Lymphocytes (Bld) [#/Vol] 2.03 10*3/uL Normal 1.00-4.[address] [facility] Comment on above: Order Comment: Speci men Type: BLOOD SPECIMEN Ordering Facility: [facility] Address: [address] [place] [address] Performed By: #### 5 7021-8 #### [facility] CLIA [id number] [address] [place] [address] [place] Lymphocytes/100 WBC (Bld) 29.7 % Normal [facility] Comment on above: Order Comment: Speci men Type: BLOOD SPECIMEN Ordering Facility: [facility] Address: [address] [place] [address] Performed By: #### 5 7021-8 #### [facility] CLIA [id number] [address] [place] [address] [place] MCH (RBC) [Entitic mass] 28.5 pg Normal 26.0-34.[address] [facility] Comment on above: Order Comment: Speci men Type: BLOOD SPECIMEN Ordering Facility: [facility] Address: [address] [place], [place] [address] Performed By: #### 5 7021-8 #### [facility] CLIA [id number] [address] [place] [address] [place] MCHC (RBC) [Mass/Vol] 32.3 g/dL Normal 30.5-36.0 [facility] Comment on above: Order Comment: Speci men Type: BLOOD SPECIMEN Ordering Facility: [facility] Address: [address] [place] [address] Performed By: #### 5 7021-8 #### [facility] CLIA [id number] [address] [place] [address] [place] MCV (RBC) [Entitic vol] 88.4 fL Normal 80.0-100.0 [facility] Comment on above: Order Comment: Speci men Type: BLOOD SPECIMEN Ordering Facility: [facility] Address: [address] [place] [address] Performed By: #### 5 7021-8 #### [facility] CLIA [id number] [address] [place] [address] [place] Monocytes (Bld) [#/Vol] 0.47 10*3/uL Normal <0.[address] [facility] Comment on above: Order Comment: Speci men Type: BLOOD SPECIMEN Ordering Facility: [facility] Address: [address] [place] [address] Performed By: #### 5 7021-8 #### [facility] CLIA [id number] [address] [place] [address] [place] Monocytes/100 WBC (Bld) 6.9 % Normal [facility] Comment on above: Order Comment: Speci men Type: BLOOD SPECIMEN Ordering Facility: [facility] Address: [address] [place] [address] Performed By: #### 5 7021-8 #### [facility] CLIA [id number] [address] [place] [address] [place] Neutrophils (Bld) [#/Vol] 3.96 10*3/uL Normal 1.45-7.[address] [facility] Comment on above: Order Comment: Speci men Type: BLOOD SPECIMEN Ordering Facility: [facility] Address: [address] [place] [address] Performed By: #### 5 7021-8 #### [facility] CLIA [id number] [address] [place] [address] [place] Neutrophils/100 WBC (Bld) 57.9 % Normal [facility] Comment on above: Order Comment: Speci men Type: BLOOD SPECIMEN Ordering Facility: [facility] Address: [address] [place], [place] [address] Performed By: #### 5 7021-8 #### [facility] CLIA [id number] [address] [place] [address] [place] Nucleated RBC (Bld) [#/Vol] 10*3/uL Normal <0.[address] [facility] Comment on above: Order Comment: Speci men Type: BLOOD SPECIMEN Ordering Facility: [facility] Address: [address] [place] [address] Performed By: #### 5 7021-8 #### [facility] CLIA [id number] [address] [place] [address] [place] Nucleated RBC/100 WBC (Bld) [Ratio] 0.0 /[address] [facility] Comment on above: Order Comment: Speci men Type: BLOOD SPECIMEN Ordering Facility: [facility] Address: [address] [place] [address] Performed By: #### 5 7021-8 #### [facility] CLIA [id number] [address] [place] [address] [place] Platelet mean volume (Bld) [Entitic vol] 10.0 fL Normal 9.0-12.[address] [facility] Comment on above: Order Comment: Speci men Type: BLOOD SPECIMEN Ordering Facility: [facility] Address: [address] [place], [place] [address] Performed By: #### 5 7021-8 #### [facility] CLIA [id number] [address] [place] [address] [place] Platelets (Bld) [#/Vol] 246 10*3/uL Normal 150-[address] [facility] Comment on above: Order Comment: Speci men Type: BLOOD SPECIMEN Ordering Facility: [facility] Address: [address] [place] [address] Performed By: #### 5 7021-8 #### [facility] CLIA [id number] [address] [place] [address] [place] RBC (Bld) [#/Vol] 4.21 10*6/uL Normal 3.90-5.20 [facility] Comment on above: Order Comment: Speci men Type: BLOOD SPECIMEN Ordering Facility: [facility] Address: [address] [place] [address] Performed By: #### 5 7021-8 #### [facility] CLIA [id number] [address] [place] [address] [place] WBC (Bld) [#/Vol] 6.84 10*3/uL Normal 3.70-11.00 [facility] Comment on above: Order Comment: Speci men Type: BLOOD SPECIMEN Ordering Facility: [facility] Address: [address] [place] [address] Performed By: #### 5 7021-8 #### [facility] CLIA [id number] [address] [place] [address] [place] CNOVSPon 05-07-2022 CNOVSP Visit (SP) Office (EVELYN) OLGA DONALDSON ([id number]) 1945 F Date Time Provider Department 05/07/22 1:30 PM LASHONDA IRAHETA During your visit today, we recorded the following information about you: Temperature Pulse Blood pressure Weight 97.2 degrees 66/minute 160/68 73.7 kg Height 1.581 m 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 APRN.[employer] 05/07/2022 2:25 PM Signed Chief Complaint Patient [...] an every 2-week basis for 4 cycles ([id number]). Completed a year of trastuzumab 06/16/06. Referred back or anemia. Admitted to [facility] 12/02/2019 for chest pain with ambulation. Initial [...] abd pain, n/v, moving bowels regularly :denies dysuria/hematuria-slava f caths 4x/day for past year Extrem:denies pain [...] 1.00 - 4.00 k/uL 2.70 2.30 2.03 Worth% % 7.0 6.6 6.9 Abs Worth <0.87 k/uL 0.49 0.47 0.47 Eosin% % 4.9 3.2 4.7 Abs Eosin <0.46 k/uL 0.34 0.23 0.32 Baso% % 0.7 0.6 0.7 Abs Baso <0.11 k/uL 0.05 0.04 0.05 Immature (more content not included)... Normal [facility] Ferritin SerPl-mCncon 2021 Ferritin [Mass/Vol] 808.0 ng/mL High 14.7-205.1 [facility] Comment on above: Order Comment: Speci men Type: BLOOD SPECIMEN Ordering Facility: [facility] Address: [address] [place] [address] Performed By: #### 5 0190-8, 2276-4 #### [facility] CLIA [id number] [address] [place] [address] OF [facility] Iron and Iron binding capaci ty panelon 05-07-2022 Iron [Mass/Vol] 38 ug/dL Low 41-[address] [facility] Comment on above: Order Comment: Speci men Type: BLOOD SPECIMEN Ordering Facility: [facility] Address: [address] [place] [address] Performed By: #### 5 0190-8, 2276-4 #### [facility] CLIA [id number] [address] [place] [address] [place] Iron binding capacity [Mass/Vol] 240 ug/dL Normal 232-[address] [facility] Comment on above: Order Comment: Speclety headley Type: BLOOD SPECIMEN Ordering Facility: [facility] Address: [address] [place] [address] Performed By: #### 5 0190-8, 2276-4 #### [facility] CLIA [id number] [address] [place] [address] Iron/TIBC [Molar ratio] 15.8 % Normal 15.0-57.0 [facility] Comment on above: Order Comment: Speclety headley Type: BLOOD SPECIMEN Ordering Facility: [facility] Address: [address] [place] [address] Performed By: #### 5 0190-8, 2276-4 #### [facility] CLIA [id number] [address] [place] [address] CNPCamryn 02-10-2022 CNPN Telephone (HEMAWS) OLGA DONALDSON ([id number]) 1945 F Date Time Provider Department 02/10/22 [...] Date Reviewed: 05/07/2021 Reviewed by: 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 APRN.[employer] - Fully Assessed Reason for Visit: Results [...] MIST) 0.65 % nasal spray Use 1 [place] in the nose as needed. - diltiazem [...] 20 mg by mouth once daily. - budesonide-formoterol (SYMBICORT) 160-4.5 mcg/actuation inhaler Inhale 1 Puff [...] by STACIE VARNER LPN on 02/10/[address] [facility] CBC W Auto Differential pane l (Bld)on 02-03-2022 Basophils (Bld) [#/Vol] 0.04 10*3/uL Normal <0.[address] [facility] Comment on above: Order Comment: Speci men Type: BLOOD SPECIMEN Ordering Facility: [facility] Address: [address] [place] [address] Performed By: #### 5 7021-8 #### [facility] CLIA [id number] [address] [place] [address] [place] Basophils/100 WBC (Bld) 0.6 % Normal [facility] Comment on above: Order Comment: Speci men Type: BLOOD SPECIMEN Ordering Facility: [facility] Address: [address] [place] [address] Performed By: #### 5 7021-8 #### [facility] CLIA [id number] [address] [place] [address] [place] Differential cell count method Nom (Bld) Auto Normal [facility] Comment on above: Order Comment: Speci men Type: BLOOD SPECIMEN Ordering Facility: [facility] Address: [address] [place], [place] [address] Performed By: #### 5 7021-8 #### [facility] CLIA [id number] [address] [place] [address] [place] Eosinophils (Bld) [#/Vol] 0.23 10*3/uL Normal <0.[address] [facility] Comment on above: Order Comment: Speci men Type: BLOOD SPECIMEN Ordering Facility: [facility] Address: [address] [place] [address] Performed By: #### 5 7021-8 #### [facility] CLIA [id number] [address] [place] [address] [place] Eosinophils/100 WBC (Bld) 3.2 % Normal [facility] Comment on above: Order Comment: Speci men Type: BLOOD SPECIMEN Ordering Facility: [facility] Address: [address] [place], [place] [address] Performed By: #### 5 7021-8 #### [facility] CLIA [id number] [address] [place] [address] [place] Erythrocyte distribution width (RBC) [Ratio] 14.3 % Normal 11.5-15.[address] [facility] Comment on above: Order Comment: Speci men Type: BLOOD SPECIMEN Ordering Facility: [facility] Address: [address] Performed By: #### 5 7021-8 #### [facility] CLIA [id number] [address] [place] [address] [place] Hematocrit (Bld) [Volume fraction] 39.7 % Normal 36.0-46.[address] [facility] Comment on above: Order Comment: Speci men Type: BLOOD SPECIMEN Ordering Facility: [facility] Address: [address] [place], [place] [address] Performed By: #### 5 7021-8 #### [facility] CLIA [id number] [address] [place] [address] [place] Hemoglobin (Bld) [Mass/Vol] 12.8 g/dL Normal 11.5-15.[address] [facility] Comment on above: Order Comment: Speci men Type: BLOOD SPECIMEN Ordering Facility: [facility] Address: [address] [place] [address] Performed By: #### 5 7021-8 #### [facility] CLIA [id number] [address] [place] [address] [place] IMMATURE GRAN % 0.3 % Normal [facility] Comment on above: Order Comment: Speci men Type: BLOOD SPECIMEN Ordering Facility: [facility] Address: [address] [place] [address] Performed By: #### 5 7021-8 #### [facility] HOSPITALIA [id number] [address] [place] [address] [place] IMMATURE GRAN ABS <0.03 Normal <0.10 [facility] Comment on above: Order Comment: Speci men Type: BLOOD SPECIMEN Ordering Facility: [facility] Address: [address] [place] [address] Performed By: #### 5 7021-8 #### [facility] [id number] [address] [place] [address] [place] Lymphocytes (Bld) [#/Vol] 2.30 10*3/uL Normal 1.00-4.[address] [facility] Comment on above: Order Comment: Speci men Type: BLOOD SPECIMEN Ordering Facility: [facility] Address: [address] [place] [address] Performed By: #### 5 7021-8 #### [facility] [id number] [address] [place] [address] [place] [facility] Lymphocytes/100 WBC (Bld) 32.1 % Normal [facility] Comment on above: Order Comment: Speci men Type: BLOOD SPECIMEN Ordering Facility: [facility] Address: [address] [place] [address] Performed By: #### 5 7021-8 #### [facility] CLIA [id number] [address] [place] [address] [place] MCH (RBC) [Entitic mass] 28.8 pg Normal 26.0-34.[address] [facility] Comment on above: Order Comment: Speci men Type: BLOOD SPECIMEN Ordering Facility: [facility] Address: [address] [place] [address] Performed By: #### 5 7021-8 #### [facility] CLIA [id number] [address] [place] [address] [place] MCHC (RBC) [Mass/Vol] 32.2 g/dL Normal 30.5-36.0 [facility] Comment on above: Order Comment: Speci men Type: BLOOD SPECIMEN Ordering Facility: [facility] Address: [address] [place] [address] Performed By: #### 5 7021-8 #### [facility] [id number] [address] [place] [address] [place] MCV (RBC) [Entitic vol] 89.4 fL Normal 80.0-100.0 [facility] Comment on above: Order Comment: Speci men Type: BLOOD SPECIMEN Ordering Facility: [facility] Address: [address] [place], [place] [address] Performed By: #### 5 7021-8 #### [facility] CLIA [id number] [address] [place] [address] [place] Monocytes (Bld) [#/Vol] 0.47 10*3/uL Normal <0.[address] [facility] Comment on above: Order Comment: Speci men Type: BLOOD SPECIMEN Ordering Facility: [facility] Address: [address] [place], [place] [address] Performed By: #### 5 7021-8 #### [facility] CLIA [id number] [address] [place] [address] [place] Monocytes/100 WBC (Bld) 6.6 % Normal [facility] Comment on above: Order Comment: Speci men Type: BLOOD SPECIMEN Ordering Facility: [facility] Address: [address] [place], [place] [address] Performed By: #### 5 7021-8 #### [facility] CLIA [id number] [address] [place] [address] [place] Neutrophils (Bld) [#/Vol] 4.11 10*3/uL Normal 1.45-7.[address] [facility] Comment on above: Order Comment: Speci men Type: BLOOD SPECIMEN Ordering Facility: [facility] Address: [address] [place], [place] [address] Performed By: #### 5 7021-8 #### [facility] CLIA [id number] [address] [place] [address] [place] Neutrophils/100 WBC (Bld) 57.2 % Normal [facility] Comment on above: Order Comment: Speci men Type: BLOOD SPECIMEN Ordering Facility: [facility] Address: [address] [place], [place] [address] Performed By: #### 5 7021-8 #### [facility] CLIA [id number] [address] [place] [address] [place] Nucleated RBC (Bld) [#/Vol] 10*3/uL Normal <0.[address] [facility] Comment on above: Order Comment: Speci men Type: BLOOD SPECIMEN Ordering Facility: [facility] Address: [address] [place] [address] Performed By: #### 5 7021-8 #### [facility] CLIA [id number] [address] [place] [address] [place] Nucleated RBC/100 WBC (Bld) [Ratio] 0.0 /[address] [facility] Comment on above: Order Comment: Speci men Type: BLOOD SPECIMEN Ordering Facility: [facility] Address: [address] [place] [address] Performed By: #### 5 7021-8 #### [facility] CLIA [id number] [address] [place] [address] [place] Platelet mean volume (Bld) [Entitic vol] 10.3 fL Normal 9.0-12.[address] [facility] Comment on above: Order Comment: Speci men Type: BLOOD SPECIMEN Ordering Facility: [facility] Address: [address] [place] [address] Performed By: #### 5 7021-8 #### [facility] CLIA [id number] [address] [place] [address] [place] Platelets (Bld) [#/Vol] 265 10*3/uL Normal 150-[address] [facility] Comment on above: Order Comment: Speci men Type: BLOOD SPECIMEN Ordering Facility: [facility] Address: [address] [place] [address] Performed By: #### 5 7021-8 #### [facility] CLIA [id number] [address] [place] [address] [place] RBC (Bld) [#/Vol] 4.44 10*6/uL Normal 3.90-5.20 [facility] Comment on above: Order Comment: Speci men Type: BLOOD SPECIMEN Ordering Facility: [facility] Address: [address] [place] [address] Performed By: #### 5 7021-8 #### [facility] CLIA [id number] [address] [place] [address] [place] WBC (Bld) [#/Vol] 7.17 10*3/uL Normal 3.70-11.00 [facility] Comment on above: Order Comment: Speci men Type: BLOOD SPECIMEN Ordering Facility: [facility] Address: [address] [place] [address] Performed By: #### 5 7021-8 #### [facility] CLIA [id number] [address] [place] [address] [place] FERRITIN BLDon 02-03-2022 Ferritin [Mass/Vol] 1132.0 ng/mL High 14.7-205.1 [facility] Comment on above: Order Comment: Speci men Type: BLOOD SPECIMEN Ordering Facility: [facility] Address: [address] [place] [address] Performed By: #### F ERR, IRON #### [facility] CLIA [id number] [address] [place] [address] [place] IRON + TIBCon 02-03-2022 Iron [Mass/Vol] 66 ug/dL Normal 41-[address] [facility] Comment on above: Order Comment: Speci men Type: BLOOD SPECIMEN Ordering Facility: [facility] Address: [address] [place], [place] [address] Performed By: #### F ERR, IRON #### [facility] CLIA [id number] [address] [place] [address] [place] Iron binding capacity [Mass/Vol] 286 ug/dL Normal 232-[address] [facility] Comment on above: Order Comment: Speci men Type: BLOOD SPECIMEN Ordering Facility: [facility] Address: [address] [place], [place] [address] Performed By: #### F ERR, IRON #### [facility] CLIA [id number] [address] [place] [address] [place] Iron/TIBC [Molar ratio] 23 % Normal 15-57 C [facility] Comment on above: Order Comment: Speci men Type: BLOOD SPECIMEN Ordering Facility: [facility] Address: [address] [place] [address] Performed By: #### F WILLAM CHRISTOPEHR #### [facility] CLIA [id number] [address] [facility] [place] [address] [place] Bacteria identified Anaer cx Nom (Unsp spec)on 12-02-2021 Anaerobic microbial culture No anaerobic bacteria isolated. [facility] Work Phone: Bacteria identified Cx Nom ( Wound)on 12-02-2021 Wound Culture Negative [facility] Work Phone: Wound Culture Staphylococcus epidermidis [facility] Work Phone: Wound Culture Corynebacterium striatum [facility] Work Phone: Gram stain for investigation of transfusion reactionon 12-02-2021 Microscopic observation Gram stain Nom (Unsp spec) [facility] Work Phone: CBC W Auto Differential pane l (Bld)on 11-04-2021 Basophils (Bld) [#/Vol] 0.05 10*3/uL Normal <0.[address] [facility] Comment on above: Order Comment: Speci men Type: BLOOD SPECIMEN Ordering Facility: [facility] Address: [address] [place] [address] Performed By: #### 5 7021-8 #### [facility] CLIA [id number] [address] [place] [address] [place] Basophils/100 WBC (Bld) 0.7 % Normal C [facility] Comment on above: Order Comment: Speci men Type: BLOOD SPECIMEN Ordering Facility: [facility] Address: [address] [place] [address] Performed By: #### 5 7021-8 #### [facility] CLIA [id number] [address] [place] [address] [place] Differential cell count method Nom (Bld) Auto Normal [facility] Comment on above: Order Comment: Speci men Type: BLOOD SPECIMEN Ordering Facility: [facility] Address: [address] [place], [place] [address] Performed By: #### 5 7021-8 #### [facility] CLIA [id number] [address] [place] [address] [place] Eosinophils (Bld) [#/Vol] 0.34 10*3/uL Normal <0.[address] [facility] Comment on above: Order Comment: Speci men Type: BLOOD SPECIMEN Ordering Facility: [facility] Address: [address] [place] [address] Performed By: #### 5 7021-8 #### [facility] CLIA [id number] [address] [place] [address] [place] Eosinophils/100 WBC (Bld) 4.9 % Normal [facility] Comment on above: Order Comment: Speci men Type: BLOOD SPECIMEN Ordering Facility: [facility] Address: [address] [place], [place] [address] Performed By: #### 5 7021-8 #### [facility] CLIA [id number] [address] [place] [address] [place] Erythrocyte distribution width (RBC) [Ratio] 13.3 % Normal 11.5-15.[address] [facility] Comment on above: Order Comment: Speci men Type: BLOOD SPECIMEN Ordering Facility: [facility] Address: [address] [place], [place] [address] Performed By: #### 5 7021-8 #### [facility] CLIA [id number] [address] [place] [address] [place] Hematocrit (Bld) [Volume fraction] 40.4 % Normal 36.0-46.[address] [facility] Comment on above: Order Comment: Speci men Type: BLOOD SPECIMEN Ordering Facility: [facility] Address: [address] [place] [address] Performed By: #### 5 7021-8 #### [facility] CLIA [id number] [address] [place] [address] [place] Hemoglobin (Bld) [Mass/Vol] 12.9 g/dL Normal 11.5-15.[address] [facility] Comment on above: Order Comment: Speci men Type: BLOOD SPECIMEN Ordering Facility: [facility] Address: [address] [place] [address] Performed By: #### 5 7021-8 #### [facility] CLIA [id number] [address] [place] [address] [place] IMMATURE GRAN % 0.1 % Normal [facility] Comment on above: Order Comment: Speci men Type: BLOOD SPECIMEN Ordering Facility: [facility] Address: [address] [place] [address] Performed By: #### 5 7021-8 #### [facility] [id number] [address] [place] [address] [place] IMMATURE GRAN ABS <0.03 Normal <0.10 [facility] Comment on above: Order Comment: Speci men Type: BLOOD SPECIMEN Ordering Facility: [facility] Address: [address] [place] [address] Performed By: #### 5 7021-8 #### [facility] CLIA [id number] [address] [place] [address] [place] Lymphocytes (Bld) [#/Vol] 2.70 10*3/uL Normal 1.00-4.[address] [facility] Comment on above: Order Comment: Speci men Type: BLOOD SPECIMEN Ordering Facility: [facility] Address: [address] [place] [address] Performed By: #### 5 7021-8 #### [facility] [id number] [address] [place] [address] [place] Lymphocytes/100 WBC (Bld) 38.6 % Normal [facility] Comment on above: Order Comment: Speci men Type: BLOOD SPECIMEN Ordering Facility: [facility] Address: [address] [place] [address] Performed By: #### 5 7021-8 #### [facility] CLIA [id number] [address] [place] [address] [place] MCH (RBC) [Entitic mass] 28.9 pg Normal 26.0-34.[address] [facility] Comment on above: Order Comment: Speci men Type: BLOOD SPECIMEN Ordering Facility: [facility] Address: [address] [place] [address] Performed By: #### 5 7021-8 #### [facility] CLIA [id number] [address] [place] [address] [place] MCHC (RBC) [Mass/Vol] 31.9 g/dL Normal 30.5-36.0 [facility] Comment on above: Order Comment: Speci men Type: BLOOD SPECIMEN Ordering Facility: [facility] Address: [address] [place] [address] Performed By: #### 5 7021-8 #### [facility] [id number] [address] [place] [address] [place] MCV (RBC) [Entitic vol] 90.4 fL Normal 80.0-100.0 [facility] Comment on above: Order Comment: Speci men Type: BLOOD SPECIMEN Ordering Facility: [facility] Address: [address] [place], [place] [address] Performed By: #### 5 7021-8 #### [facility] CLIA [id number] [address] [place] [address] [place] Monocytes (Bld) [#/Vol] 0.49 10*3/uL Normal <0.[address] [facility] Comment on above: Order Comment: Speci men Type: BLOOD SPECIMEN Ordering Facility: [facility] Address: [address] [place] [address] Performed By: #### 5 7021-8 #### [facility] CLIA [id number] [address] [place] [address] [place] Monocytes/100 WBC (Bld) 7.0 % Normal [facility] Comment on above: Order Comment: Speci men Type: BLOOD SPECIMEN Ordering Facility: [facility] Address: [address] [place] [address] Performed By: #### 5 7021-8 #### [facility] CLIA [id number] [address] [place] [address] [place] Neutrophils (Bld) [#/Vol] 3.40 10*3/uL Normal 1.45-7.[address] [facility] Comment on above: Order Comment: Speci men Type: BLOOD SPECIMEN Ordering Facility: [facility] Address: [address] [place], [place] [address] Performed By: #### 5 7021-8 #### [facility] CLIA [id number] [address] [place] [address] [place] Neutrophils/100 WBC (Bld) 48.7 % Normal [facility] Comment on above: Order Comment: Speci men Type: BLOOD SPECIMEN Ordering Facility: [facility] Address: [address] [place], [place] [address] Performed By: #### 5 7021-8 #### [facility] CLIA [id number] [address] [place] [address] [place] Nucleated RBC (Bld) [#/Vol] 10*3/uL Normal <0.[address] [facility] Comment on above: Order Comment: Speci men Type: BLOOD SPECIMEN Ordering Facility: [facility] Address: [address] [place] [address] Performed By: #### 5 7021-8 #### [facility] CLIA [id number] [address] [place] [address] [place] Nucleated RBC/100 WBC (Bld) [Ratio] 0.0 /[address] [facility] Comment on above: Order Comment: Speci men Type: BLOOD SPECIMEN Ordering Facility: [facility] Address: [address] [place] [address] Performed By: #### 5 7021-8 #### [facility] CLIA [id number] [address] [place] [address] [place] Platelet mean volume (Bld) [Entitic vol] 10.1 fL Normal 9.0-12.[address] [facility] Comment on above: Order Comment: Speci men Type: BLOOD SPECIMEN Ordering Facility: [facility] Address: [address] [place] [address] Performed By: #### 5 7021-8 #### [facility] CLIA [id number] [address] [place] [address] [place] Platelets (Bld) [#/Vol] 246 10*3/uL Normal 150-[address] [facility] Comment on above: Order Comment: Speci men Type: BLOOD SPECIMEN Ordering Facility: [facility] Address: [address] [place] [address] Performed By: #### 5 7021-8 #### [facility] CLIA [id number] [address] [place] [address] [place] RBC (Bld) [#/Vol] 4.47 10*6/uL Normal 3.90-5.20 [facility] Comment on above: Order Comment: Speci men Type: BLOOD SPECIMEN Ordering Facility: [facility] Address: [address] [place] [address] Performed By: #### 5 7021-8 #### [facility] CLIA [id number] [address] [place] [address] [place] WBC (Bld) [#/Vol] 6.99 10*3/uL Normal 3.70-11.00 [facility] Comment on above: Order Comment: Speci men Type: BLOOD SPECIMEN Ordering Facility: [facility] Address: [address] [place] [address] Performed By: #### 5 7021-8 #### [facility] CLIA [id number] [address] [place] [address] [place] FERRITIN BLDon 11-04-2021 Ferritin [Mass/Vol] 1428.0 ng/mL High 14.7-205.1 [facility] Comment on above: Order Comment: Speci men Type: BLOOD SPECIMEN Ordering Facility: [facility] Address: [address] [place] [address] Performed By: #### I VICTOR MANUEL, FERR #### [facility] CLIA [id number] [address] [place] [address] [place] IRON + TIBCon 11-04-2021 Iron [Mass/Vol] 60 ug/dL Normal 41-[address] [facility] Comment on above: Order Comment: Speci men Type: BLOOD SPECIMEN Ordering Facility: [facility] Address: [address] [place] [address] Performed By: #### I VICTOR MANUEL, FERR #### [facility] CLIA [id number] [address] [place] [address] [place] Iron binding capacity [Mass/Vol] 242 ug/dL Normal 232-[address] [facility] Comment on above: Order Comment: Speci men Type: BLOOD SPECIMEN Ordering Facility: [facility] Address: [address] [place] [address] Performed By: #### I VICTOR MANUEL, FERR #### [facility] CLIA [id number] [address] [place] [address] [place] Iron/TIBC [Molar ratio] 25 % Normal 15-57 C [facility] Comment on above: Order Comment: Flip headley Type: BLOOD SPECIMEN Ordering Facility: [facility] Address: [address] [place], [place] [address] Performed By: #### I EVELIA RUSH #### [facility] CLIA [id number] [address] [facility] [id number] OF [facility] Justine 09-29-2021 CNPN Telephone (HEMAWS) OLGA DONALDSON ([id number]) 1945 F Date Time Provider Department 09/29/21 [...] Date Reviewed: 05/07/2021 Reviewed by: 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 APRN.[employer] - Fully Assessed Reason for Visit: Results [95] Follow Up [171] Primary Visit Diagnosis:Anemia, unspecified type [D64.9] Order(s):CBC + DIFF [SQCBCDIF] Order #: [id number] FUTURE COMP METABOLIC PANEL [SQCMP] Order #: [id number] FUTURE PROTEIN ELECTROPHORESIS SERUM W/INTERP [SQSEPG] Order #: [id number] FUTURE MONOCLONAL PROTEIN, SERUM (BLOOD) [SQSERMPA] Order #: [id number] FUTURE Prescriptions as of 04/12/2022 - ascorbic [...] MIST) 0.65 % nasal spray Use 1 [place] in the nose as needed. - diltiazem [...] 20 mg by mouth once daily. - budesonide-formoterol (SYMBICORT) 160-4.5 mcg/actuation inhaler Inhale 1 Puff [...] Specified Conge (more content not included)... [facility] (EVELYN) OLGA DONALDSON ([id number]) 1945 F Date Time Provider Department 05/09/21 LASHONDA IRAHETA During your visit today, we recorded the following information about you: 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 APRN.CNP 05/09/2021 9:20 AM Signed Please inform pt. that her labs look good. Follow up as scheduled. Thank you. 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 APRN.MARLI Abernathy 05/09/2021 9:22 AM Signed Pt aware of results. Jocelyn Abernathy Allergies As of Date: 05/09/2021 Noted Allergy Reaction KEFLEX (CEPHALEXIN) 07/02/2005 2 - Rash tape [Other] 07/30/2005 2 - Rash Comments: Nylon tape caused rash. Use paper tape. Also no dark brown bandaids. Spot bandaid ok. PLAVIX (CLOPIDOGREL BISULFATE) 08/04/2011 4 - Hives Date Reviewed: 05/07/2021 Reviewed by: 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 APRN.[employer] - Fully Assessed Reason for Visit: Results [...] MIST) 0.65 % nasal spray Use 1 [place] in the nose as needed. - diltiazem [...] 20 mg by mouth once daily. - budesonide-formoterol (SYMBICORT) 160-4.5 mcg/actuation inhaler Inhale 1 Puff [...] by STACIE VARNER LPN on 05/09/[address] [facility] - Specimen inform ationon 03-27-2021 Specimen source Nom (Unsp spec) Stool [facility] No Panel Informationon 03-27 Occult Blood Diagnostic [facility] FERRITIN BLDon 03-22-2021 Ferritin [Mass/Vol] 1064.0 ng/mL High 14.7 - 2 05.1 ng/mL [facility] CULTURE FUNGUSon 02-08-2018 CULTURE FUNGUS 1 Organism Nithya albicans Many Normal [facility] Comment on above: Performed By: #### C /FUN, S/FUN ####[facility] [id number] [place] [address] STAIN FUNGUSon 01-19-2018 STAIN FUNGUS STAIN FUNGUS --> Status: F 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 Direct exam by Calcofluor stain. Direct exam by Calcofluor stain. Normal [facility] Comment on above: Performed By: #### C /FUN, S/FUN ####[facility] [id number] [place] [address] Office Visit: Consult- Romero mina 01-13-2017 Adolescent depression screening assessment Adolescent depression screening assessment Invalid Interpretation Code [facility] Work Phone: [phone] Adult depression screening assessment Adolescent depression screening assessment [facility] Work Phone: [phone] Documentation of current medications (procedure) Done Invalid Interpretation Code [facility] Work Phone: [phone] Fall risk assessment Fall risk assessment [facility] Work Phone: [phone] Tobacco smoking status NHIS Never [facility] Work Phone: [phone] Tobacco smoking status NHIS Former smoker [facility] Work Phone: [phone] Tobacco use CPHS Former smoker Invalid Interpretation Code [facility] Work Phone: [phone] Clinical Lists Update: Prelo lens edge grinder machine 04-11-2016 Left ventricular Ejection fraction 70 % [facility] Work Phone: [phone] Office Visiton 08-29-2015 cardiac risk group [facility] Work Phone: [phone] General cardiovascular disease 10Y risk [#] Capri'Frances Not enough information [facility] Work Phone: [phone] Replaced Document: Bernie LYLES Observationson 08-29-2015 EKG QRS axis 29 deg [facility] Work Phone: [phone] electrocardiogram interpretation Sinus Tachycardia -With rate variation cv = 10.WITHIN NORMAL LIMITS Invalid Interpretation Code [facility] [facility] Work Phone: [phone] GE use only - for [employer] import when terms are not otherwise specified 411 ms Invalid Interpretation Code [facility] Work Phone: [phone] Interpretation Sinus Tachycardia -With rate variation cv = 10.WITHIN NORMAL LIMITS [facility] Work Phone: [phone] P [place] 41 deg [facility] Work Phone: [phone] P wave axis, electrocardiogram 41 deg Invalid Interpretation Code [facility] Work Phone: [phone] SD Interval 134 ms [facility] Work Phone: [phone] SD interval, electrocardiogram 134 ms Invalid Interpretation Code [facility] Work Phone: [phone] Pulse (Heart Rate) 109 /min Invalid Interpretation Code [facility] Work Phone: [phone] QRS axis, electrocardiogram 29 deg Invalid Interpretation Code [facility] Work Phone: [phone] QRS Duration 80 ms [facility] Work Phone: [phone] QRS duration, electrocardiogram 80 ms Invalid Interpretation Code [facility] Work Phone: [phone] QT Interval new path ms [facility] Work Phone: [phone] QT interval, electrocardiogram new path ms Invalid Interpretation Code [facility] Work Phone: [phone] QTc Carney 411 ms [facility] Work Phone: [phone] T [place] 37 deg [facility] Work Phone: [phone] T wave axis, electrocardiogram 37 deg Invalid Interpretation Code [facility] Work Phone: [phone] Bacteria identified Anaer cx Nom (Unsp spec) Anaerobic microbial culture No anaerobic bacteria isolated. [facility] Work Phone: Bacteria identified Cx Nom ( Wound) Wound Culture Negative [facility] Work Phone: Wound Culture Staphylococcus epidermidis [facility] Work Phone: Wound Culture Corynebacterium striatum [facility] Work Phone: Culture, urine Bacteria identified Cx Nom (U) Klebsiella pneumoniae sp pneum [facility] Work Phone: Gram stain for investigation of transfusion reaction Microscopic observation Gram stain Nom (Unsp spec) [facility] Work Phone: Vital Signs Date Time Vital Sign Value Performing Clinician Facility 02-17-2025 18:40-0400 Heart rate 78 /min Dr. Ramone Smiley MD Work Phone: [facility] 02-17-2025 18:40-0400 Inhaled oxygen flow rate 2 L/min Dr. Ramone Smiley MD Work Phone: [facility] 02-17-2025 18:40-0400 Respiratory rate 18 /min Dr. Ramone Smiley MD Work Phone: [facility] 02-17-2025 18:40-0400 SaO2% (BldA) [Mass fraction] 94 % Dr. Ramone Smiley MD Work Phone: [facility] 02-17-2025 18:08-0400 Body temperature 98.9 [degF] Dr. Ramone Smiley MD Work Phone: [facility] 02-17-2025 18:08-0400 Diastolic blood pressure 54 mm[Hg] Dr. Ramone Smiley MD Work Phone: [facility] 02-17-2025 18:08-0400 Systolic blood pressure 137 mm[Hg] Dr. Ramone Smiley MD Work Phone: [facility] 02-17-2025 04:49-0400 Body mass index (BMI) [Ratio] 29.4 kg/m2 Dr. Ramone Smiley MD Work Phone: 8(403)795-686963 [place] [address] 02-17-2025 04:49-0400 Body weight 75.[address] Ramone Smiley MD Work Phone: 0(828)817-596763 [place] [address] 02-15-2025 15:20-0400 Body height 160.[address] Ramone Smiley MD Work Phone: 8(217)969-682763 [place] [address] 02-15-2025 13:54-0400 Body temperature 99.6 [degF] Dr. Ramone Smiley MD Work Phone: 0(213)965-533663 [place] [address] 02-15-2025 13:54-0400 Diastolic blood pressure 53 mm[Hg] Dr. Ramone Smiley MD Work Phone: 4(013)603-496863 [place] [address] 02-15-2025 13:54-0400 Heart rate 98 /min Dr. Ramone Smiley MD Work Phone: 4(512)367-571863 [place] [address] 02-15-2025 13:54-0400 Inhaled oxygen flow rate 3 L/min Dr. Ramone Smiley MD Work Phone: 7(196)555-149063 [place] [address] 02-15-2025 13:54-0400 Respiratory rate 22 /min Dr. Ramone Smiley MD Work Phone: 9(786)800-425163 [place] [address] 02-15-2025 13:54-0400 SaO2% (BldA) [Mass fraction] 98 % Dr. Ramone Smiley MD Work Phone: 5(429)477-562163 [place] [address] 02-15-2025 13:54-0400 Systolic blood pressure 110 mm[Hg] Dr. Ramone Smiley MD Work Phone: 7(962)625-622563 [place] [address] 02-15-2025 08:36-0400 Body height 160.[address] Ramone Smiley MD Work Phone: 2(258)032-332763 [place] [address] 02-15-2025 08:36-0400 Body mass index (BMI) [Ratio] 30.4 kg/m2 Dr. Ramone Smiley MD Work Phone: 8(307)921-605363 [place] [address] 02-15-2025 08:36-0400 Body weight 78.[address] Ramone Smiley MD Work Phone: 3(343)370-909763 [place] [address] 02-13-2025 16:00-0400 Inhaled oxygen flow rate 2 L/min Dr. Ramone Smiley MD Work Phone: 1(689)070-725974 [place] [address] 02-13-2025 14:04-0400 Body temperature 98.4 [degF] Dr. Ramone Smiley MD Work Phone: 8(345)337-439263 [place] [address] 02-13-2025 14:04-0400 Heart rate 94 /min Dr. Ramone Smiley MD Work Phone: 6(109)249-754463 [place] [address] 02-13-2025 14:04-0400 Respiratory rate 20 /min Dr. Ramone Smiley MD Work Phone: 5(581)125-211963 [place] [address] 02-13-2025 14:04-0400 SaO2% (BldA) [Mass fraction] 94 % Dr. Ramone Smiley MD Work Phone: 3(540)380-050463 [place] [address] 02-13-2025 08:41-0400 Diastolic blood pressure 51 mm[Hg] Dr. Ramone Smiley MD Work Phone: 8(971)115-317863 [place] [address] 02-13-2025 08:41-0400 Systolic blood pressure 132 mm[Hg] Dr. Ramone Smiley MD Work Phone: 7(146)267-474963 [place] [address] 02-10-2025 13:27-0400 Body height 160.[address] Ramone Smiley MD Work Phone: 5(084)114-855063 [place] [address] 02-10-2025 13:27-0400 Body weight 76.[address] Ramone Smiley MD Work Phone: 1(040)069-431563 [place] [address] 02-09-2025 16:43-0400 Body mass index (BMI) [Ratio] 29.9 kg/m2 Dr. Ramone Smiley MD Work Phone: 7(036)069-349863 [place] [address] 02-09-2025 15:12-0400 Inhaled oxygen flow rate 2 L/min Dr. Ramone Smiley MD Work Phone: 0(022)238-143263 [place] [address] 02-09-2025 15:12-0400 SaO2% (BldA) [Mass fraction] 91 % Dr. Ramone Smiley MD Work Phone: 3(638)109-946863 [place] [address] 02-09-2025 15:08-0400 Body temperature 99 [degF] Dr. Ramone Smiley MD Work Phone: [facility] 02-09-2025 15:08-0400 Diastolic blood pressure 46 mm[Hg] Dr. Ramone Smiley MD Work Phone: [facility] 02-09-2025 15:08-0400 Heart rate 94 /min Dr. Ramone Smiley MD Work Phone: 1(511)646-716403 [address] 02-09-2025 15:08-0400 Respiratory rate 25 /min Dr. Ramone Smiley MD Work Phone: 8(360)990-113563 [place] [address] 02-09-2025 15:08-0400 Systolic blood pressure 136 mm[Hg] Dr. Ramone Smiley MD Work Phone: 9(278)864-771863 [place] [address] 02-09-2025 11:52-0400 Body height 160.[address] Ramone Smiley MD Work Phone: 6(815)014-010663 [place] [address] 02-09-2025 11:52-0400 Body mass index (BMI) [Ratio] 30.1 kg/m2 Dr. Ramone Smiley MD Work Phone: 4(925)105-386063 [place] [address] 02-09-2025 11:52-0400 Body weight 77.[address] Ramone Smiley MD Work Phone: 7(958)055-976863 [place] [address] 02-06-2025 15:38-0400 Body temperature 97.5 [degF] Dr. Ramone Smiley MD Work Phone: 4(143)460-552274 [place] [address] 02-06-2025 15:38-0400 Diastolic blood pressure 81 mm[Hg] Dr. Ramone Smiley MD Work Phone: 1(202)330-818903 [address] 02-06-2025 15:38-0400 Heart rate 74 /min Dr. Ramone Smiley MD Work Phone: [facility] 02-06-2025 15:38-0400 Respiratory rate 18 /min Dr. Ramone Smiley MD Work Phone: 5(623)826-053374 [place] [address] 02-06-2025 15:38-0400 SaO2% (BldA) [Mass fraction] 93 % Dr. Ramone Smiley MD Work Phone: 7(091)593-894663 [place] [address] 02-06-2025 15:38-0400 Systolic blood pressure 117 mm[Hg] Dr. Ramone Smiley MD Work Phone: 6(141)580-424663 [place] [address] 02-06-2025 07:36-0400 Inhaled oxygen flow rate 2 L/min Dr. Ramone Smiley MD Work Phone: 8(116)248-833463 [place] [address] 02-04-2025 12:34-0400 Body height 160.[address] Ramone Smiley MD Work Phone: 1(350)995-860263 [place] [address] 02-04-2025 12:34-0400 Body mass index (BMI) [Ratio] 27.8 kg/m2 Dr. Ramone Smiley MD Work Phone: 7(625)774-806563 [place] [address] 02-04-2025 12:34-0400 Body weight 71.[address] Ramone Smiley MD Work Phone: 7(738)408-208063 [place] [address] 02-04-2025 11:06-0400 Body temperature 98.6 [degF] Dr. Ramone Smiley MD Work Phone: 1(038)377-993163 [place] [address] 02-04-2025 11:06-0400 Diastolic blood pressure 46 mm[Hg] Dr. Ramone Smiley MD Work Phone: 0(596)055-330963 [place] [address] 02-04-2025 11:06-0400 Heart rate 88 /min Dr. Ramone Smiley MD Work Phone: 9(076)168-099663 [place] [address] 02-04-2025 11:06-0400 Respiratory rate 30 /min Dr. Ramone Smiley MD Work Phone: 6(420)250-772463 [place] [address] 02-04-2025 11:06-0400 SaO2% (BldA) [Mass fraction] 99 % Dr. Ramone Smiley MD Work Phone: 9(266)196-606963 [place] [address] 02-04-2025 11:06-0400 Systolic blood pressure 111 mm[Hg] Dr. Ramone Smiley MD Work Phone: 6(728)830-919563 [place] [address] 02-04-2025 11:00-0400 Inhaled oxygen flow rate 3 L/min Dr. Ramone Smiley MD Work Phone: 3(229)925-711974 [place] [address] 02-04-2025 06:20-0400 Body height 160.[address] Ramone Smiley MD Work Phone: 4(037)099-231763 [place] [address] 02-04-2025 06:20-0400 Body mass index (BMI) [Ratio] 29.9 kg/m2 Dr. Ramone Smiley MD Work Phone: 3(869)019-945963 [place] [address] 02-04-2025 06:20-0400 Body weight 76.[address] Ramone Smiley MD Work Phone: 5(350)976-675963 [place] [address] 01-31-2025 06:28-0400 Body mass index (BMI) [Ratio] 27.4 kg/m2 Dr. Ramone Smiley MD Work Phone: 5(952)409-606763 [place] [address] 01-31-2025 06:28-0400 Body weight 70.[address] Ramone Smiley MD Work Phone: 5(949)267-356963 [place] [address] 01-31-2025 06:28-0400 Diastolic blood pressure 59 mm[Hg] Dr. Ramone Smiley MD Work Phone: 9(762)190-575663 [place] [address] 01-31-2025 06:28-0400 Heart rate 95 /min Dr. Ramone Smiley MD Work Phone: 8(301)217-063963 [place] [address] 01-31-2025 06:28-0400 Respiratory rate 18 /min Dr. Ramone Smiley MD Work Phone: 2(024)621-955663 [place] [address] 01-31-2025 06:28-0400 SaO2% (BldA) [Mass fraction] 95 % Dr. Ramone Smiley MD Work Phone: 4(886)056-236063 [place] [address] 01-31-2025 06:28-0400 Systolic blood pressure 107 mm[Hg] Dr. Raomne Smiley MD Work Phone: 9(990)528-141663 [place] [address] 01-26-2025 05:13-0400 Body temperature 98.3 [degF] Dr. Ramone Smiley MD Work Phone: 3(117)089-848363 [place] [address] 01-26-2025 05:13-0400 Diastolic blood pressure 72 mm[Hg] Dr. Ramone Smiley MD Work Phone: [facility] 01-26-2025 05:13-0400 Heart rate 83 /min Dr. Ramone Smiley MD Work Phone: 0(716)344-369274 [place] [address] 01-26-2025 05:13-0400 Respiratory rate 18 /min Dr. Ramone Smiley MD Work Phone: 4(163)506-824274 [place] [address] 01-26-2025 05:13-0400 SaO2% (BldA) [Mass fraction] 97 % Dr. Ramone Smiley MD Work Phone: 3(057)850-064574 [place] [address] 01-26-2025 05:13-0400 Systolic blood pressure 116 mm[Hg] Dr. Ramone Smiley MD Work Phone: 5(158)565-581763 [place] [address] 01-26-2025 03:02-0400 Body height 160.[address] Ramone Smiley MD Work Phone: 7(068)331-134463 [place] [address] 01-26-2025 03:02-0400 Body mass index (BMI) [Ratio] 31.4 kg/m2 Dr. Ramone Smiley MD Work Phone: 8(875)943-159463 [place] [address] 01-26-2025 03:02-0400 Body weight 80.[address] Ramone Smiley MD Work Phone: 9(135)777-971063 [place] [address] 01-24-2025 13:57-0400 Body temperature 97.4 [degF] Dr. Ramone Smiley MD Work Phone: 7(198)946-708763 [place] [address] 01-24-2025 13:57-0400 Diastolic blood pressure 68 mm[Hg] Dr. Ramone Smiley MD Work Phone: 5(292)580-388203 [address] 01-24-2025 13:57-0400 Heart rate 87 /min Dr. Ramone Smiley MD Work Phone: 6(618)078-435863 [place] [address] 01-24-2025 13:57-0400 Respiratory rate 16 /min Dr. Ramone Smiley MD Work Phone: [facility] 01-24-2025 13:57-0400 SaO2% (BldA) [Mass fraction] 97 % Dr. Ramone Smiley MD Work Phone: [facility] 01-24-2025 13:57-0400 Systolic blood pressure 111 mm[Hg] Dr. Ramone Smiley MD Work Phone: [facility] 01-24-2025 05:23-0400 Body mass index (BMI) [Ratio] 30.7 kg/m2 Dr. Ramone Smiley MD Work Phone: 7(073)387-081074 [place] [address] 01-24-2025 05:23-0400 Body weight 78.[address] Ramone Smiley MD Work Phone: 7(854)464-787274 [place] [address] 01-22-2025 14:00-0400 Inhaled oxygen concentration 24 % Dr. Ramone Smiley MD Work Phone: 1(116)896-303063 [place] [address] 01-22-2025 11:00-0400 Inhaled oxygen flow rate 2 L/min Dr. Ramone Smiley MD Work Phone: 7(953)320-097563 [place] [address] 01-20-2025 10:06-0400 Body height 160.[address] Ramone Smiley MD Work Phone: [facility] 01-15-2025 18:58-0400 Body temperature 97.9 [degF] Dr. Ramone Smiley MD Work Phone: 3(516)067-008203 [address] 01-15-2025 18:58-0400 Diastolic blood pressure 70 mm[Hg] Dr. Ramone Smiley MD Work Phone: 0(935)287-303963 [place] [address] 01-15-2025 18:58-0400 Heart rate 69 /min Dr. Ramone Smiley MD Work Phone: [facility] 01-15-2025 18:58-0400 Respiratory rate 22 /min Dr. Ramone Smiley MD Work Phone: [facility] 01-15-2025 18:58-0400 SaO2% (BldA) [Mass fraction] 98 % Dr. Ramone Smiley MD Work Phone: [facility] 01-15-2025 18:58-0400 Systolic blood pressure 130 mm[Hg] Dr. Ramone Smiley MD Work Phone: 7(347)553-414163 [place] [address] 01-15-2025 14:14-0400 Body height 160.[address] Ramone Smiley MD Work Phone: 1(892)314-944463 [place] [address] 01-15-2025 14:14-0400 Body mass index (BMI) [Ratio] 32.3 kg/m2 Dr. Ramone Smiley MD Work Phone: 8(630)629-802763 [place] [address] 01-15-2025 14:14-0400 Body weight 82.[address] Ramone Smiley MD Work Phone: 1(367)520-585363 [place] [address] 01-07-2025 17:34-0400 Body temperature 97.6 [degF] Dr. Ramone Smiley MD Work Phone: 9(149)883-337963 [place] [address] 01-07-2025 17:34-0400 Diastolic blood pressure 78 mm[Hg] Dr. Ramone Smiley MD Work Phone: 4(529)358-103563 [place] [address] 01-07-2025 17:34-0400 Heart rate 82 /min Dr. Ramone Smiley MD Work Phone: 4(487)178-143663 [place] [address] 01-07-2025 17:34-0400 Respiratory rate 19 /min Dr. Ramone Smiley MD Work Phone: 3(039)514-946963 [place] [address] 01-07-2025 17:34-0400 SaO2% (BldA) [Mass fraction] 97 % Dr. Ramone Smiley MD Work Phone: 2(453)996-608063 [place] [address] 01-07-2025 17:34-0400 Systolic blood pressure 147 mm[Hg] Dr. Ramone Smiley MD Work Phone: 6(493)104-314663 [place] [address] 01-07-2025 14:56-0400 Body height 160.[address] Ramone Smiley MD Work Phone: 3(050)577-427663 [place] [address] 01-07-2025 14:56-0400 Body mass index (BMI) [Ratio] 31.5 kg/m2 Dr. Ramone Smiley MD Work Phone: 9(237)961-420863 [place] [address] 01-07-2025 14:56-0400 Body weight 80.[address] Ramone Smiley MD Work Phone: 5(721)228-736263 [place] [address] 12-30-2023 14:14-0400 Body temperature 98.9 [degF] Dr. Ramone Smiley Work Phone: [facility] 12-30-2023 14:14-0400 Diastolic blood pressure 60 mm[Hg] Dr. Ramone Smiley Work Phone: [facility] 12-30-2023 14:14-0400 Heart rate 80 /min Dr. Ramone Smiley Work Phone: [facility] 12-30-2023 14:14-0400 Respiratory rate 18 /min Dr. Ramone Smiley Work Phone: 7(952)542-344974 [place] [address] 12-30-2023 14:14-0400 SaO2% (BldA) [Mass fraction] 95 % Dr. Ramone Smiley Work Phone: [facility] 12-30-2023 14:14-0400 Systolic blood pressure 131 mm[Hg] Dr. Ramone Smiley Work Phone: [facility] 12-29-2023 07:09-0400 Inhaled oxygen flow rate 2 L/min Dr. Ramone Smiley Work Phone: 8(775)033-493874 [place] [address] 12-28-2023 11:27-0400 Body height 160.[address] Ramone Smiley Work Phone: 5(178)921-375174 [place] [address] 12-28-2023 11:27-0400 Body mass index (BMI) [Ratio] 27.8 kg/m2 Dr. Ramone Smiley Work Phone: [facility] 12-28-2023 11:27-0400 Body weight 71.[address] Ramone Smiley Work Phone: 2(040)017-257274 [place] [address] 12-27-2023 23:42-0400 Body temperature 97.5 [degF] [facility] 12-27-2023 23:42-0400 Diastolic blood pressure 59 mm[Hg] [facility] 12-27-2023 23:42-0400 Heart rate 77 /min [facility] 12-27-2023 23:42-0400 Respiratory rate 20 /min [facility] 12-27-2023 23:42-0400 SaO2% (BldA) [Mass fraction] 97 % [facility] 12-27-2023 23:42-0400 Systolic blood pressure 159 mm[Hg] [facility] 12-27-2023 22:06-0400 Body height 160.02 cm [facility] 12-27-2023 22:06-0400 Body mass index (BMI) [Ratio] 29.5 kg/m2 [facility] 12-27-2023 22:06-0400 Body weight 75.6 kg [facility] 08-17-2023 13:26-0500 Body temperature 97.1 [degF] Dr. Ramone Smiley Work Phone: [facility] 08-17-2023 13:26-0500 Diastolic blood pressure 65 mm[Hg] Dr. Ramone Smiley Work Phone: 6(669)103-882774 [place] [address] 08-17-2023 13:26-0500 Heart rate 84 /min Dr. Ramone Smiley Work Phone: [facility] 08-17-2023 13:26-0500 Respiratory rate 18 /min Dr. Ramone Smiley Work Phone: [facility] 08-17-2023 13:26-0500 SaO2% (BldA) [Mass fraction] 98 % Dr. Ramone Smiley Work Phone: [facility] 08-17-2023 13:26-0500 Systolic blood pressure 140 mm[Hg] Dr. Ramone Smiley Work Phone: [facility] 08-14-2023 13:28-0500 Body height 160.[address] Ramone Smiley Work Phone: [facility] 08-14-2023 13:28-0500 Body weight 60.[address] Ramone Smiley Work Phone: [facility] 08-13-2023 15:22-0500 Body mass index (BMI) [Ratio] 23.4 kg/m2 Dr. Ramone Smiley Work Phone: [facility] 08-13-2023 14:18-0500 Body temperature 98.6 [degF] Dr. Ramone Smiley Work Phone: [facility] 08-13-2023 14:18-0500 Diastolic blood pressure 59 mm[Hg] Dr. Ramone Smiley Work Phone: [facility] 08-13-2023 14:18-0500 Heart rate 107 /min Dr. Ramone Smiley Work Phone: [facility] 08-13-2023 14:18-0500 Respiratory rate 20 /min Dr. Ramone Smiley Work Phone: [facility] 08-13-2023 14:18-0500 SaO2% (BldA) [Mass fraction] 97 % Dr. Ramone Smiley Work Phone: [facility] 08-13-2023 14:18-0500 Systolic blood pressure 152 mm[Hg] Dr. Ramone Smiley Work Phone: [facility] 08-13-2023 10:03-0500 Body height 160.[address] Ramone Smiley Work Phone: [facility] 08-13-2023 10:03-0500 Body mass index (BMI) [Ratio] 24.5 kg/m2 Dr. Ramone Smiley Work Phone: [facility] 08-13-2023 10:03-0500 Body weight [address] Ramone Smiley Work Phone: [facility] 08-07-2023 20:23-0500 Body temperature 97.6 [degF] Dr. Ramone Smiley Work Phone: [facility] 08-07-2023 20:23-0500 Diastolic blood pressure 51 mm[Hg] Dr. Ramone Smiley Work Phone: [facility] 08-07-2023 20:23-0500 Heart rate 87 /min Dr. Ramone Smiley Work Phone: [facility] 08-07-2023 20:23-0500 Respiratory rate 18 /min Dr. Ramone Smiley Work Phone: [facility] 08-07-2023 20:23-0500 SaO2% (BldA) [Mass fraction] 98 % Dr. Ramone Smiley Work Phone: [facility] 08-07-2023 20:23-0500 Systolic blood pressure 115 mm[Hg] Dr. Ramone Smiley Work Phone: [facility] 07-19-2023 01:01-0500 Diastolic blood pressure 61 mm[Hg] Dr. Ramone Smiley Work Phone: [facility] 07-19-2023 01:01-0500 Heart rate 101 /min Dr. Ramone Smiley Work Phone: [facility] 07-19-2023 01:01-0500 Respiratory rate 20 /min Dr. Ramone Smiley Work Phone: [facility] 07-19-2023 01:01-0500 Systolic blood pressure 145 mm[Hg] Dr. Ramone Smiley Work Phone: [facility] 07-18-2023 23:28-0500 Body mass index (BMI) [Ratio] 25.7 kg/m2 Dr. Ramone Smiley Work Phone: [facility] 07-18-2023 23:28-0500 Body weight 65.[address] Ramone Smiley Work Phone: [facility] 07-18-2023 22:47-0500 Body temperature 97.6 [degF] Dr. Ramone Simley Work Phone: [facility] 07-18-2023 22:47-0500 SaO2% (BldA) [Mass fraction] 96 % Dr. Ramone Smiley Work Phone: [facility] 07-18-2023 22:44-0500 Body height 160.[address] Ramone Smiley Work Phone: [facility] 07-15-2023 13:24-0500 Body temperature 98.2 [degF] Dr. Ramone Smiley Work Phone: [facility] 07-15-2023 13:24-0500 Diastolic blood pressure 74 mm[Hg] Dr. Ramone Smiley Work Phone: [facility] 07-15-2023 13:24-0500 Heart rate 89 /min Dr. Ramone Smiley Work Phone: [facility] 07-15-2023 13:24-0500 SaO2% (BldA) [Mass fraction] 92 % Dr. Ramone Smiley Work Phone: [facility] 07-15-2023 13:24-0500 Systolic blood pressure 122 mm[Hg] Dr. Ramone Smiley Work Phone: [facility] 01-28-2023 16:36-0400 Diastolic blood pressure 63 mm[Hg] [facility] 01-28-2023 16:36-0400 Heart rate 75 /min [facility] 01-28-2023 16:36-0400 Systolic blood pressure 170 mm[Hg] [facility] 01-28-2023 14:54-0400 Body height 160.02 cm [facility] 01-28-2023 14:54-0400 Body mass index (BMI) [Ratio] 26.9 kg/m2 [facility] 01-28-2023 14:54-0400 Body temperature 97.8 [degF] [facility] 01-28-2023 14:54-0400 Body weight 69 kg [facility] 01-28-2023 14:54-0400 Respiratory rate 25 /min [facility] 01-28-2023 14:54-0400 SaO2% (BldA) [Mass fraction] 97 % [facility] 07-14-2022 18:11-0500 Diastolic blood pressure 64 mm[Hg] [facility] Work Phone: 07-14-2022 18:11-0500 Heart rate 73 /min [facility] Work Phone: 07-14-2022 18:11-0500 Respiratory rate 18 /min [facility] Work Phone: 07-14-2022 18:11-0500 SaO2% (BldA) [Mass fraction] 98 % [facility] Work Phone: 07-14-2022 18:11-0500 Systolic blood pressure 174 mm[Hg] [facility] Work Phone: 07-14-2022 11:59-0500 Body height 160.02 cm [facility] Work Phone: 07-14-2022 11:59-0500 Body mass index (BMI) [Ratio] 31.1 kg/m2 [facility] Work Phone: 07-14-2022 11:59-0500 Body temperature 97.2 [degF] [facility] Work Phone: 07-14-2022 11:59-0500 Body weight 79.83 kg [facility] Work Phone: 05-07-2022 13:26-0400 Body height 158.1 cm 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 [employer] Work Phone: [facility] 05-07-2022 13:26-0400 Body temperature 97.2 [degF] 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 [employer] Work Phone: [facility] 05-07-2022 13:26-0400 Body weight 73.71 kg 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 [employer] Work Phone: [facility] 05-07-2022 13:26-0400 Diastolic blood pressure 68 mm[Hg] [place] Iraheta [employer] Work Phone: [facility] 05-07-2022 13:26-0400 Heart rate 66 /min [place] Iraheta [employer] Work Phone: [facility] 05-07-2022 13:26-0400 Systolic blood pressure 160 mm[Hg] 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 [employer] Work Phone: [facility] 02-26-2022 09:43-0400 Body height 160.[address] Ramone Smiley Work Phone: [facility] Work Phone: 02-26-2022 09:43-0400 Body mass index (BMI) [Ratio] 28.1 kg/m2 Dr. Ramone Smiley Work Phone: [facility] Work Phone: 02-26-2022 09:43-0400 Body temperature 97.9 [degF] Dr. Ramone Smiley Work Phone: [facility] Work Phone: 02-26-2022 09:43-0400 Body weight 72.[address] Ramone Smiley Work Phone: [facility] Work Phone: 02-26-2022 09:43-0400 Diastolic blood pressure 80 mm[Hg] Dr. Ramone Smiley Work Phone: [facility] Work Phone: 02-26-2022 09:43-0400 Heart rate 70 /min Dr. Ramone Smiley Work Phone: [facility] Work Phone: 02-26-2022 09:43-0400 Respiratory rate 14 /min Dr. Ramone Smiley Work Phone: [facility] Work Phone: 02-26-2022 09:43-0400 SaO2% (BldA) [Mass fraction] 98 % Dr. Ramone Smiley Work Phone: [facility] Work Phone: 02-26-2022 09:43-0400 Systolic blood pressure 134 mm[Hg] Dr. Ramone Smiley Work Phone: [facility] Work Phone: 12-17-2021 13:23-0400 Diastolic blood pressure 60 mm[Hg] Dr. Ramone Smiley Work Phone: [facility] Work Phone: 12-17-2021 13:23-0400 Systolic blood pressure 154 mm[Hg] Dr. Ramone Smiley Work Phone: [facility] Work Phone: 12-10-2021 10:34-0400 Diastolic blood pressure 70 mm[Hg] Dr. Ramone Smiley Work Phone: [facility] Work Phone: 12-10-2021 10:34-0400 Systolic blood pressure 124 mm[Hg] Dr. Ramone Smiley Work Phone: [facility] Work Phone: 12-06-2021 15:22-0400 Body mass index (BMI) [Ratio] 30.2 kg/m2 Dr. Ramone Smiley Work Phone: [facility] Work Phone: 12-06-2021 15:22-0400 Body weight 77.[address] Ramone Smiley Work Phone: [facility] Work Phone: 12-06-2021 15:22-0400 Diastolic blood pressure 84 mm[Hg] Dr. Ramone Smiley Work Phone: [facility] Work Phone: 12-06-2021 15:22-0400 Systolic blood pressure 122 mm[Hg] Dr. Ramone Smiley Work Phone: [facility] Work Phone: 12-06-2021 15:22-0400 Body height 160.[address] Ramone Smiley Work Phone: [facility] Work Phone: 12-06-2021 15:22-0400 Body mass index (BMI) [Ratio] 30.2 kg/m2 Dr. Ramone Smiley Work Phone: [facility] Work Phone: 12-06-2021 15:22-0400 Body weight 77.[address] Ramone Smiley Work Phone: [facility] Work Phone: 12-06-2021 15:22-0400 Diastolic blood pressure 84 mm[Hg] Dr. Ramone Smiley Work Phone: [facility] Work Phone: 12-06-2021 15:22-0400 Systolic blood pressure 122 mm[Hg] Dr. Ramone Smiley Work Phone: [facility] Work Phone: 12-04-2021 11:22-0400 Diastolic blood pressure 70 mm[Hg] Dr. Ramone Smiley Work Phone: [facility] Work Phone: 12-04-2021 11:22-0400 Systolic blood pressure 124 mm[Hg] Dr. Ramone Smiley Work Phone: [facility] Work Phone: 12-04-2021 11:22-0400 Diastolic blood pressure 70 mm[Hg] Dr. Ramone Smiley Work Phone: [facility] Work Phone: 12-04-2021 11:22-0400 Systolic blood pressure 124 mm[Hg] Dr. Ramone Smiley Work Phone: [facility] Work Phone: 12-02-2021 14:03-0400 Diastolic blood pressure 60 mm[Hg] Dr. Ramone Smiley Work Phone: [facility] Work Phone: 12-02-2021 14:03-0400 Systolic blood pressure 138 mm[Hg] Dr. Ramone Smiley Work Phone: [facility] Work Phone: 12-02-2021 14:03-0400 Diastolic blood pressure 60 mm[Hg] Dr. Ramone Smiley Work Phone: [facility] Work Phone: 12-02-2021 14:03-0400 Systolic blood pressure 138 mm[Hg] Dr. Ramone Smiley Work Phone: [facility] Work Phone: 01-13-2017 [id number] BMI (Body Mass Index) 30.93 kg/m2 Zuleika [facility] Work Phone: 01-13-2017 14:21-0400 Body Temperature 98.2 [degF] [facility] Work Phone: 01-13-2017 14:21-0400 Body weight 79.2 kg Zuleika Heaton [facility] Work Phone: 01-13-2017 14:21-0400 BP Diastolic 76 mm[Hg] Zuleika Heaton [facility] Work Phone: 01-13-2017 14:21-0400 BP Systolic 128 mm[Hg] Zuleika Heaton [facility] Work Phone: 01-13-2017 14:21-0400 Height 160.02 cm Zuleika Heaton [facility] Work Phone: 01-13-2017 14:21-0400 Pulse (Heart Rate) 70 /min Zuleika Heaton [facility] Work Phone: 01-13-2017 14:21-0400 Pulse Oximetry 96 % Zuleika Heaton [facility] Work Phone: 01-13-2017 14:21-0400 Respiratory Rate 16 /min [facility] Work Phone: 01-13-2017 14:21-0400 Weight 79.2 kg Zuleika Heaton [facility] Work Phone: 10-09-2015 11:00-0500 BSA (Body Surface Area) 1.91 m2 Zuleika Heaton [facility] Work Phone: 08-29-2015 11:19-0500 Heart rate 109 /min Zuleika Heaton [facility] Work Phone: Encounters Encounter Date Encounter Type Care Provider Facility Start: 03-07-2025 ambulatory Whitney Cao NP Facili ty:[facility] Start: 02-17-2025 Dr. Heydi Amaya [facility] Work Phone: Start: 02-16-2025 Dr. Heydi Amaya MD -[facility] Work Phone: Start: 02-15-2025 ambulatory Ramone Smiley Facility:[facility] Start: 02-15-2025 End: 02-17-[address] Ramone Smiley MD Work Phone: [facility] Work Phone: Start: 02-15-2025 End: 02-17-2025 Dr. Nestor Bartlett DO -[facility] Surgical 3 Work Phone: Start: 02-13-2025 Dr. Lucio Borden [facility] Work Phone: Start: 02-12-2025 Dr. Lucio Borden [facility] Work Phone: Start: 02-11-2025 Dr. Lucio Borden [facility] Work Phone: Start: 02-10-2025 Dr. Lucio Borden [facility] Work Phone: Start: 02-09-2025 ambulatory Tono BHATTI Facility :[facility] Start: 02-09-2025 End: 02-13-2025 Evaluation and management of inpatient Dr. Ramone Smiley MD Work Phone: [facility] Work Phone: Start: 02-09-2025 End: 02-13-2025 Tono BHATTI -[facility] Work Phone: Start: 02-07-2025 End: 02-07-[address] Ramone Smiley MD Work Phone: [facility] Work Phone: Start: 02-07-2025 End: 02-07-2025 Dr. Ramone Smiley MD -[facility] Start: 02-07-2025 End: 02-07-2025 ambulatory Ramone Smiley Facility:[facility] Start: 02-06-2025 Dr. Lucio Borden [facility] Work Phone: Start: 02-05-2025 Dr. Lucio Borden [facility] Work Phone: Start: 02-04-2025 Dr. Lucio Borden [facility] Work Phone: Start: 02-04-2025 ambulatory Lucio Borden Facilit y:[facility] Start: 02-04-2025 End: 02-06-2025 Evaluation and management of inpatient Dr. Ramone Smiley MD Work Phone: [facility] Work Phone: Start: 02-04-2025 End: 02-06-2025 Dr. Lucio Borden DO -Progressive Care Unit Work Phone: Start: 01-31-2025 End: 01-31-2025 Whitney SUGGS -[facility] Work Phone: Start: 01-31-2025 End: 01-31-[address] Ramone Smiley MD Work Phone: [facility] Work Phone: Start: 01-26-2025 End: 01-26-2025 Dr. Ramone Smiley MD Work Phone: Emergency Department Work Phone: Start: 01-26-2025 End: 01-26-2025 Emergency department patient visit Dr. Ramone Smiley MD Work Phone: [facility] Work Phone: Start: 01-24-2025 Dr. Melba Hartmann MD - [facility] Work Phone: Start: 01-23-2025 Dr. Becca Silverman MD -[facility] Start: 01-23-2025 Dr. Melba Hartmann MD - [facility] Work Phone: Start: 01-22-2025 Dr. Melba Hartmann MD - [facility] Work Phone: Start: 01-21-2025 Dr. Melba Hartmann MD - [facility] Work Phone: Start: 01-20-2025 ambulatory Ramone Smiley Facility: [facility] Start: 01-20-2025 Dr. Marcelina Soto MD -[facility] Start: 01-20-2025 ambulatory Sandeep Carlton Facili ty:[facility] Start: 01-20-2025 End: 01-24-2025 Evaluation and management of inpatient Dr. Ramone Smiley MD Work Phone: [facility] Work Phone: Start: 01-20-2025 End: 01-24-2025 Dr. Melba Hartmann MD -Progressive Care Unit Work Phone: Start: 01-19-2025 End: 01-19-[address] Ramone Smiley MD Work Phone: [facility] Work Phone: Start: 01-19-2025 End: 01-19-2025 Dr. Ramone Smiley MD -[facility] Start: 01-19-2025 End: 01-19-2025 ambulatory Ramone Smiley Facility:[facility] Start: 01-15-2025 End: 01-15-2025 Dr. Jeevan [...] -Emergency Department Work Phone: Start: 11-21-2024 ambulatory Ramoneramila Smiley Facility:[facility] Start: 11-21-[address] Ramone Smiley MD -Physical Therapy Work Phone: Start: 11-21-2024 Dr. Ramone Smiley MD -Phys ical Therapy Work Phone: Start: 09-27-2024 End: 09-27-[address] Ramone Smiley MD -Laboratory, [facility] Start: 09-27-2024 End: 09-27-2024 Dr. Ramone Smiley MD -Laboratory [facility] Start: 09-27-2024 End: 09-27-2024 ambulatory Ramone Smiley Facility:[facility] Start: 07-19-2024 End: 07-19-2024 ambulatory Ramone Smilye Facility:[facility] Start: 06-19-2024 End: 06-20-2024 Emergency department patient visit Billy Kothari Facility:[facility] Start: 05-30-2024 End: 05-30-2024 Emergency department patient visit Ramone Smiley Facility:[facility] Start: 05-18-2024 End: 05-18-2024 ambulatory Jason BHATTI Facility:[facility] Start: 04-18-2024 End: 04-18-2024 ambulatory Ramone Smiley Facility:[facility] Start: 03-25-2024 End: 03-25-2024 ambulatory Gabriel Byrd Facility:[facility] Start: 03-01-2024 End: 03-01-2024 ambulatory Ramone Smiley Facility:[facility] Start: 02-23-2024 End: 02-23-2024 ambulatory Ramone Smiley Facility:[facility] Start: 12-30-2023 Non-patient / Non-visit Dr. Richar Smiley Work Phone: [facility] Work Phone: Start: 12-29-2023 Non-patient / Non-visit Dr. Richar Smiley Work Phone: [facility] Work Phone: Start: 12-28-2023 Non-patient / Non-visit Dr. Richar Smiley Work Phone: [facility] Work Phone: Start: 12-27-2023 End: 12-30-2023 Evaluation and management of inpatient [facility]-Medical Surgical 3 Work Phone: Start: 10-26-2023 End: 10-26-[address] Ramone Smiley Work Phone: [facility] Work Phone: Start: 10-26-2023 End: 10-26-[address] Ramone Smiley Work Phone: [facility] Start: 08-17-2023 Non-patient / Non-visit Dr. Richar Smiley Work Phone: [facility]icians Work Phone: Start: 08-16-2023 Non-patient / Non-visit Dr. Richar Smiley Work Phone: [facility] Work Phone: Start: 08-15-2023 Non-patient / Non-visit Dr. Richar Smiley Work Phone: [facility] Work Phone: Start: 08-14-2023 Non-patient / Non-visit Dr. Richar Smiley Work Phone: [facility] Work Phone: Start: 08-13-2023 End: 08-17-2023 Evaluation and management of inpatient Dr. Ramone Smiley Work Phone: [facility]-Progressive Care Unit Work Phone: Start: 08-07-2023 End: 08-07-2023 Emergency department patient visit Dr. Ramone Smiley Work Phone: [facility]-Emergency Department Work Phone: Start: 07-18-2023 End: 07-19-2023 Emergency department patient visit Dr. Ramone Smiley Work Phone: [facility]-Emergency Department Work Phone: Start: 07-15-2023 End: 07-15-[address] Ramone Smiley Work Phone: [facility] Work Phone: Start: 06-01-2023 End: 06-01-[address] [facility] Work Phone: Start: 05-27-2023 End: 05-27-[address] Ramone Smiley Work Phone: [facility]-Laboratory, [place] Work Phone: Start: 05-15-2023 End: 05-15-[address] Ramone Smiley Work Phone: [facility]-Radiology, [place] Work Phone: Start: 03-24-2023 End: 03-24-2023 ambulatory [facility] Work Phone: Start: 03-24-2023 End: 03-24-2023 [facility] Work Phone: Start: 02-05-2023 End: 02-05-2023 ambulatory [facility] Work Phone: Start: 02-05-2023 End: 02-05-2023 Patient encounter procedure [facility]-Ultrasound, [facility] Start: 01-28-2023 End: 01-28-2023 Emergency department patient visit [facility]-Emergency Department Start: 01-28-2023 End: 01-28-2023 ambulatory [facility] Work Phone: Start: 01-28-2023 End: 01-28-2023 [facility] [place] Start: 12-09-2022 End: 12-09-2022 ambulatory [facility] Work Phone: Start: 12-09-2022 End: 12-09-2022 Patient encounter procedure [facility] Start: 08-13-2022 End: 08-13-2022 ambulatory [facility] Work Phone: Start: 08-13-2022 End: 08-13-2022 Patient encounter procedure [facility]-Outpatient Breast Imaging Start: 07-14-2022 End: 07-14-2022 Emergency department patient visit [facility]-Emergency Department Start: 05-07-2022 End: 05-07-2022 ambulatory 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 APRN.[employer] Work Phone: Hematology/Oncology Comment on above: Iron deficiency anem ia due to chronic blood loss (Primary Dx) Start: 05-07-2022 End: 05-07-2022 Patient encounter procedure 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 APRN.[employer] Work Phone: [facility] Start: 02-27-2022 End: 02-27-[address] Ramone Smiley Work Phone: [facility], [facility] Start: 02-26-2022 End: 02-26-[address] Ramone Smiley Work Phone: [facility] Start: 02-10-2022 Telephone encounter Joseph sanders DO Work Phone: Hematology/Oncology Comment on above: Results (CBC and iro n levels) Start: 01-31-2022 Orders Only Joseph Lim Work Phone: Hematology/Oncology Comment on above: Iron deficiency anem ia due to chronic blood loss (Primary Dx) Start: 12-17-2021 End: 12-17-[address] Ramone Smiley Work Phone: [facility] Start: 12-10-2021 End: 12-10-[address] Ramone Smiley Work Phone: [facility] Start: 12-06-2021 End: 12-06-[address] Ramone Smiley Work Phone: [facility] Start: 12-04-2021 End: 12-04-[address] Ramone Smiley Work Phone: [facility] Start: 12-02-2021 End: 12-02-[address] Ramone Smiley Work Phone: [facility]-Laboratory, Specimen Start: 12-02-2021 End: 12-02-[address] Ramone Smiley Work Phone: [facility] Start: 09-29-2021 Telephone encounter Joseph sanders DO Work Phone: Hematology/Oncology Comment on above: Results; Follow Up Start: 09-13-2021 End: 09-13-[address] Ramone Smiley Work Phone: [facility]-Nuclear Medicine, [facility] Start: 08-21-[address] Ramone Smiley Work Phone: [facility]-Outpatient Breast Imaging Start: 08-12-2021 End: 08-12-[address] Ramone Smiley Work Phone: [facility] Start: 03-14-2021 Telephone encounter Joseph sanders DO Work Phone: Hematology/Oncology Comment on above: Results Start: 01-18-2018 Ambulatory [facility] Procedures Date Procedure Procedure Detail Performing Clinician Start: 02-17-2025 Blood count smear mc rscp w/mnl difrntl wbc count Dr. Ramone Smiley MD Work Phone: Start: 02-17-[address] Ramone Smiley MD Work Phone: Start: 02-17-2025 Mean corpuscular hem oglobin concentration determination Dr. Ramone Smiley MD Work Phone: Start: 02-17-2025 Nucleated red blood cell count procedure Dr. Ramone Smiley MD Work Phone: Start: 02-17-2025 Platelet mean volume determination Dr. Ramone Smiley MD Work Phone: Start: 02-16-2025 Gram stain microscopy D niels Smiley MD Work Phone: Start: 02-15-2025 Plain chest X-ray Dr. Yoni Smiley MD Work Phone: Start: 02-15-2025 Blood count smear mc rscp w/mnl difrntl wbc count Dr. Ramone Smiley MD Work Phone: Start: 02-15-[address] Ramone Smiley MD Work Phone: Start: 02-15-2025 Mean corpuscular hem oglobin concentration determination Dr. Ramone Smiley MD Work Phone: Start: 02-15-2025 Nucleated red blood cell count procedure Dr. Ramone Smiley MD Work Phone: Start: 02-15-2025 Platelet mean volume determination Dr. Ramone Smiley MD Work Phone: Start: 02-10-[address] Ramone Smiley MD Work Phone: Start: 02-09-[address] Ramone Smiley MD Work Phone: Start: 02-09-2025 Blood count smear mc rscp w/mnl difrntl wbc count Dr. Ramone Smiley MD Work Phone: Start: 02-09-[address] Ramone Smiley MD Work Phone: Start: 02-09-2025 Mean corpuscular hem oglobin concentration determination Dr. Ramone Smiley MD Work Phone: Start: 02-09-2025 Nucleated red blood cell count procedure Dr. Ramone Smiley MD Work Phone: Start: 02-09-2025 Platelet mean volume determination Dr. Ramone Smiley MD Work Phone: Start: 02-09-2025 X-ray of chest, PA a nd lateral views Dr. Ramone Smiley MD Work Phone: Start: 02-07-2025 Blood count smear mc rscp w/mnl difrntl wbc count Dr. Ramone Smiley MD Work Phone: Start: 02-07-2025 Mean corpuscular hem oglobin concentration determination Dr. Ramone Smiley MD Work Phone: Start: 02-07-2025 Nucleated red blood cell count procedure Dr. Ramone Smiley MD Work Phone: Start: 02-07-2025 Platelet mean volume determination Dr. Ramone Smiley MD Work Phone: Start: 02-05-[address] Ramone Smiley MD Work Phone: Start: 02-04-2025 CT angiography of ch est with contrast Dr. Ramone Smiley MD Work Phone: Start: 02-04-2025 X-ray of chest, PA a nd lateral views Dr. Ramone Smiley MD Work Phone: Start: 02-04-2025 Blood count smear mc rscp w/mnl difrntl wbc count Dr. Ramone Smiley MD Work Phone: Start: 02-04-[address] Ramone Smiley MD Work Phone: Start: 02-04-2025 Mean corpuscular hem oglobin concentration determination Dr. Ramone Smiley MD Work Phone: Start: 02-04-2025 Nucleated red blood cell count procedure Dr. Ramone Smiley MD Work Phone: Start: 02-04-2025 Platelet mean volume determination Dr. Ramone Smiley MD Work Phone: Start: 01-26-2025 X-ray of chest, PA a [...] Se Good MD Start: 08-29-2015 End: 08-29-2015 AGENT Se Good MD Start: 08-29-2015 End: 08-29-2015 Electrocardiogram, complete Se Lara i, MD Start: 08-29-2015 End: 08-29-2015 Follow Up Appt 6 weeks Se Good MD Anaerobic microbial culture Dr. Ramone Smiley Work Phone: Investigation of transfusion reaction Dr. Ramone Smiley Work Phone: Microbial culture, routine D niels Smiley Work Phone: Urine culture Plan of Treatment Date Care Activity Detail Author Start: 02-17-2025 Patient discharge [facility] Start: 02-17-2025 [facility] Start: 02-16-2025 End: 02-16-2025 [facility] Start: 02-15-2025 [facility] Start: 02-15-2025 Following clinical pathway protocol [facility] Start: 02-15-2025 Ambulation without limitation [facility] Start: 02-15-2025 Assessment of risk o f venous thromboembolism [facility] Start: 02-15-2025 Care regimes management [facility] Start: 02-15-2025 Insertion of cathete r into peripheral vein [facility] Start: 02-15-2025 Notification of physician [facility] Start: 02-15-2025 Oxygen therapy [facility] Start: 02-15-2025 Providing care accor ding to standard [facility] Start: 02-15-2025 Referral to occupati onal therapist [facility] Start: 02-15-2025 Referral to service [facility] Start: 02-15-2025 [facility] Start: 02-15-2025 Verification routine [facility] Start: 02-15-2025 Admission procedure [facility] Start: 02-15-2025 Hospital admission, emergency, from emergency room, medical nature [facility] Start: 02-15-2025 [facility] Start: 02-15-2025 End: 02-15-2025 [facility] Start: 02-15-2025 Inhalation therapy procedure [facility] Start: 02-13-2025 Patient discharge [facility] Start: 02-11-2025 Inhalation therapy procedure [facility] Start: 02-10-2025 [facility] Start: 02-10-2025 Referral to service [facility] Start: 02-09-2025 Care regimes management [facility] Start: 02-09-2025 Notification of physician [facility] Start: 02-09-2025 [facility] Start: 02-09-2025 Following clinical pathway protocol [facility] Start: 02-09-2025 Ambulation without limitation [facility] Start: 02-09-2025 Assessment of risk o f venous thromboembolism [facility] Start: 02-09-2025 Catheterization of vein [facility] Start: 02-09-2025 Insertion of cathete r into peripheral vein [facility] Start: 02-09-2025 Oxygen therapy [facility] Start: 02-09-2025 Providing care accor ding to standard [facility] Start: 02-09-2025 Referral to occupati onal therapist [facility] Start: 02-09-2025 Referral to service [facility] Start: 02-09-2025 [facility] Start: 02-09-2025 Verification routine [facility] Start: 02-09-2025 Admission procedure [facility] Start: 02-09-2025 Hospital admission, emergency, from emergency room, medical nature [facility] Start: 02-09-2025 [facility] Start: 02-09-2025 Patient referral to dietitian [facility] Start: 02-06-2025 Patient discharge [facility] Start: 02-06-2025 Referral to service [facility] Start: 02-05-2025 [facility] Start: 02-04-2025 End: 02-04-2025 [facility] Start: 02-04-2025 Care regimes management [facility] Start: 02-04-2025 Notification of physician [facility] Start: 02-04-2025 Following clinical pathway protocol [facility] Start: 02-04-2025 Care planning and pr oblem solving actions [facility] Start: 02-04-2025 Ambulation without limitation [facility] Start: 02-04-2025 Assessment of risk o f venous thromboembolism [facility] Start: 02-04-2025 Catheterization of vein [facility] Start: 02-04-2025 Inhalation therapy procedure [facility] Start: 02-04-2025 Insertion of cathete r into peripheral vein [facility] Start: 02-04-2025 Oxygen therapy [facility] Start: 02-04-2025 Providing care accor ding to standard [facility] Start: 02-04-2025 [facility] Start: 02-04-2025 Hospital admission, emergency, from emergency room, medical nature [facility] Start: 02-04-2025 Verification [facility] Start: 02-04-2025 Admission procedure [facility] Start: 02-04-2025 [facility] Start: 02-04-2025 [facility] Start: 01-26-2025 [facility] Start: 01-24-2025 Referral to service [facility] Start: 01-24-2025 Patient discharge [facility] Start: 01-21-2025 [facility] Start: 01-21-2025 Referral to metal framer [facility] Start: 01-20-2025 Oxygen therapy [facility] Start: 01-20-2025 Blood culture [facility] Start: 01-20-2025 Notification of physician [facility] Start: 01-20-2025 [facility] Start: 01-20-2025 End: 01-20-2025 [facility] Start: 01-20-2025 Application of intermittent pneumatic compression device [facility] Start: 01-20-2025 Following clinical pathway protocol [facility] Start: 01-20-2025 Cardiac monitoring [facility] Start: 01-20-2025 Catheterization of vein [facility] Start: 01-20-2025 Notification of physician [facility] Start: 01-20-2025 Vital signs measurements [facility] Start: 01-20-2025 Admission procedure [facility] Start: 01-20-2025 End: 01-20-2025 [facility] Start: 01-20-2025 Care regimes management [facility] Start: 01-20-2025 Inhalation therapy procedure [facility] Start: 01-20-2025 Patient referral to dietitian [facility] Start: 01-15-2025 [facility] Start: 01-15-2025 [facility] Start: 01-07-2025 [facility] Start: 12-30-2023 Patient discharge [facility] Start: 12-30-2023 Inhalation therapy procedure [facility] Start: 12-28-2023 Application of intermittent pneumatic compression device [facility] Start: 12-28-2023 Provision of overbed trapeze [facility] Start: 12-28-2023 Recommendation to continue with treatment [facility] Start: 12-28-2023 Ambulation therapy management [facility] Start: 12-28-2023 Application of device [facility] Start: 12-28-2023 Assessment of risk o f venous thromboembolism [facility] Start: 12-28-2023 Catheterization of vein [facility] Start: 12-28-2023 Exercises [facility] Start: 12-28-2023 Following clinical pathway protocol [facility] Start: 12-28-2023 Introduction of urin david catheter [facility] Start: 12-28-2023 Measuring intake and output [facility] Start: 12-28-2023 Neurovascular assessment [facility] Start: 12-28-2023 Patient education [facility] Start: 12-28-2023 Procedure discontinued [facility] Start: 12-28-2023 Provision of activit y privileges [facility] Start: 12-28-2023 Referral to occupati onal therapist [facility] Start: 12-28-2023 Referral to service [facility] Start: 12-28-2023 Vital signs measurements [facility] Start: 12-28-2023 Wound care [facility] Start: 12-28-2023 [facility] Start: 12-28-2023 Blood chemistry [facility] Start: 12-28-2023 Complete blood count [facility] Start: 12-28-2023 Following clinical pathway protocol [facility] Start: 12-28-2023 Assessment of risk o f venous thromboembolism [facility] Start: 12-28-2023 Care regimes management [facility] Start: 12-28-2023 Consultation [facility] Start: 12-28-2023 Incentive spirometry [facility] Start: 12-28-2023 Insertion of cathete r into peripheral vein [facility] Start: 12-28-2023 Notification of physician [facility] Start: 12-28-2023 Oxygen therapy [facility] Start: 12-28-2023 Providing care accor ding to [facility] Start: 12-28-2023 Provision of activit y privileges [facility] Start: 12-28-2023 Referral to occupati onal therapist [facility] Start: 12-28-2023 Referral to service [facility] Start: 12-28-2023 [facility] Start: 12-27-2023 Verification routine [facility] Start: 12-27-2023 Admission procedure [facility] Start: 08-17-2023 Referral to service [facility] Start: 08-17-2023 Patient discharge [facility] Start: 08-16-2023 [facility] Start: 08-13-2023 Following clinical pathway protocol [facility] Start: 08-13-2023 Assessment of risk o f venous thromboembolism [facility] Start: 08-13-2023 Care regimes management [facility] Start: 08-13-2023 Insertion of cathete r into peripheral vein [facility] Start: 08-13-2023 Measuring intake and output [facility] Start: 08-13-2023 Notification of physician [facility] Start: 08-13-2023 Providing care accor ding to [facility] Start: 08-13-2023 Provision of activit y privileges [facility] Start: 08-13-2023 Referral to occupati onal therapist [facility] Start: 08-13-2023 Referral to service [facility] Start: 08-13-2023 [facility] Start: 08-13-2023 Admission procedure [facility] Start: 08-13-2023 Verification routine [facility] Start: 08-13-2023 Bacteria identified in Blood by Culture Blood Culture [facility] Start: 08-13-2023 Bacteria identified in Urine by Culture Urine Culture [facility] Start: 08-13-2023 Hospital admission, emergency, from emergency room, medical nature [facility] Start: 08-13-2023 [facility] Start: 08-13-2023 End: 08-13-2023 Blood culture [facility] Start: 08-13-2023 Inhalation therapy procedure [facility] Start: 08-13-2023 Patient referral to dietitian [facility] Start: 08-07-2023 [facility] Start: 07-19-2023 End: 07-19-2023 [facility] Start: 07-18-2023 Measurement of occul t blood in stool specimen using immunoassay [facility] Start: 07-18-2023 Bacteria identified in Urine by Culture Urine Culture [facility] Start: 05-07-2022 BP CONTROLLED (<130/80) BP CONTROLLE D (<130/80) [facility] Start: 05-01-2022 Influenza vaccination [facility] Start: 03-28-2022 COVID-19 VACCINE (4 - Booster for Moderna series) COVID-19 VACCINE (4 - Booster for Moderna series) [facility] Start: 09-29-2021 End: 09-29-2022 MONOCLONAL PROTEIN, SERUM (BLOOD) MONOCLONAL PROTEIN, SERUM (BLOOD) Lab Routine Anemia, unspecified type Expected: 09/29/2021, Expires: 09/29/2022 [facility] Work Phone: Comment on above: Expected: 09/29/2021 , Expires: 09/29/2022 Start: 09-29-2021 End: 09-29-2022 PROTEIN ELECTROPHORESIS SERUM W/INTERP PROTEIN ELECTROPHORESIS SERUM W/INTERP Lab Routine Anemia, unspecified type Expected: 09/29/2021, Expires: 09/29/2022 [facility] Work Phone: Comment on above: Expected: 09/29/2021 , Expires: 09/29/2022 Start: 08-31-2021 ADVANCE DIRECTIVE DISCUSSION ADVANCE DIRECTIVE DISCUSSION [facility] Start: 05-16-2021 COVID-19 VACCINE (3 - Booster for Moderna series) COVID-19 VACCINE (3 - Booster for Moderna series) [facility] Start: 05-04-2018 Urine microalbumin profile DTAP,TDAP,TD (2 - Td or Tdap) [facility] Start: 08-16-2016 3 comp foot exam completed DIABETIC FOOT EXAM [facility] Start: 10-09-2015 End: 04-02-2016 Follow Up Appt 6 months Follow Up Appt 6 months [facility] Work Phone: Start: 10-09-2015 End: 04-02-2016 MMM MMM [facility] Work Phone: Start: 08-29-2015 End: 08-29-2015 AGENT AGENT [facility] Work Phone: Start: 08-29-2015 End: 08-29-2015 Electrocardiogram, complete EKG (In office) [facility] Work Phone: Start: 08-29-2015 End: 08-29-2015 Follow Up Appt 6 weeks Follow Up Appt 6 weeks [facility] Work Phone: Start: 07-01-2014 Hemoglobin A1c/Hemoglobin.total in Blood HBA1C [facility] Start: 06-25-2014 Hepatitis B surface antibody level LDL CHOLESTEROL [facility] Start: 06-17-2014 Hepatitis C antibody , confirmatory test DILATED RETINAL EXAM [facility] Start: 02-12-2013 PNEUMOCOCCAL: 65+ (2 - PCV) PNEUMOCOCCAL: 65+ (2 - PCV) [facility] Start: 02-12-2013 PNEUMOCOCCAL: 65+ (3 - PCV) PNEUMOCOCCAL: 65+ (3 - PCV) [facility] Start: 02-18-2012 SHINGRIX VACCINE (1 of 2) MORENO GRIX VACCINE (1 of 2) [facility] Start: 02-18-2012 SHINGRIX VACCINE (2 of 3) MORENO GRIX VACCINE (2 of 3) [facility] Start: 01-02-1962 ANNUAL PCP 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 Bacteria identified in Sputum by Respiratory culture [facility] BUN/Creatinine ratio [facility] Calcium [Mass/volume ] in Serum or Plasma [facility] Carbon dioxide, tota l [Moles/volume] in Serum or Plasma [facility] End: 01-31-2023 CBC W Auto Differential panel - Blood CBC + DIFF Lab STAT Iron deficiency anemia due to chronic blood loss Every 3 months for 4 Occurrences starting 01/31/2022 until 01/31/2023 [facility] Work Phone: Comment on above: Every 3 months for 4 Occurrences starting 01/31/2022 until 01/31/2023 End: 09-29-2022 CBC W Auto Differential panel - Blood CBC + DIFF Lab Routine Anemia, unspecified type 1 Occurrences starting 09/29/2021 until 09/29/2022 [facility] Work Phone: Comment on above: 1 Occurrences starti ng 09/29/2021 until 09/29/2022 Chloride [Moles/volu me] in Serum or Plasma [facility] End: 09-29-2022 Comprehensive metabolic 2000 panel - Serum or Plasma COMP METABOLIC PANEL Lab Routine Anemia, unspecified type 1 Occurrences starting 09/29/2021 until 09/29/2022 [facility] Work Phone: Comment on above: 1 Occurrences starti ng 09/29/2021 until 09/29/2022 Creatinine [Moles/vo lume] in Serum or Plasma [facility] Erythrocyte mean corpuscular volume determination [facility] End: 01-31-2023 FERRITIN BLD FERRITIN BLD Lab Routine Iron deficiency anemia due to chronic blood loss Every 3 months for 4 Occurrences starting 01/31/2022 until 01/31/2023 [facility] Work Phone: Comment on above: Every 3 months for 4 Occurrences starting 01/31/2022 until 01/31/2023 Glucose [Mass/volume ] in Serum or Plasma [facility] Hematocrit [Volume Fraction] of Blood [facility] Hemoglobin [Mass/vol ume] in Blood [facility] Hemoglobin A1c/Hemoglobin.total in Blood [facility] End: 01-31-2023 IRON + TIBC IRON + TIBC Lab Routine Iron deficiency anemia due to chronic blood loss Every 3 months for 4 Occurrences starting 01/31/2022 until 01/31/2023 [facility] Work Phone: Comment on above: Every 3 months for 4 Occurrences starting 01/31/2022 until 01/31/2023 Leukocytes [#/volume ] in Blood [facility] Mean corpuscular hemoglobin concentration determination [facility] Mean corpuscular hemoglobin determination [facility] Measurement of renal function [facility] Microorganism identi fied in Unspecified specimen by Culture [facility] Microscopic observat ion [Identifier] in Unspecified specimen by Gram stain [facility] NM Heart Views W str ess and W radionuclide IV [facility] Patient Education [facility] Work Phone: Patient referral [facility] Work Phone: Platelets [#/volume] in Blood [facility] Potassium [Moles/vol ume] in Serum or Plasma [facility] Procalcitonin [Mass/volume] in Serum or Plasma by Immunoassay [facility] Red blood cell count [facility] Red cell distributio n width determination [facility] Sodium [Moles/volume ] in Serum or Plasma [facility] Troponin T.cardiac [Mass/volume] in Serum or Plasma by High sensitivity method [facility] Troponin T.cardiac [Mass/volume] in Serum or Plasma by High sensitivity method [facility] Urea nitrogen [Mass/volume] in Serum or Plasma [facility] US Heart limited [facility] Immunizations Immunization Date Immunization Notes Care Provider [facility] 07-03-2022 influenza, injectabl e, quadrivalent, preservative free Dr. Ramone Smiley MD Work Phone: [facility] 11-26-2021 Covid (Moderna) Dr. Ramone leon MD Work Phone: [facility] 08-22-2015 pneumococcal conjuga te vaccine, [address] Ramone Smiley MD Work Phone: [facility] 07-12-2012 influenza virus vacc ine, unspecified formulation Joseph Rolle DO Work Phone: [facility] 02-13-2012 pneumococcal polysaccharide vaccine, 23 valent Joseph Rolle DO Work Phone: [facility] 12-24-2011 zoster vaccine, live Joseph Chen chatterjee DO Work Phone: [facility] 06-02-2011 influenza virus vacc ine, unspecified formulation Joseph Rolle DO Work Phone: [facility] 08-09-2010 influenza virus vacc ine, unspecified formulation Joseph Rolle DO Work Phone: [facility] 05-30-2009 influenza virus vacc ine, unspecified formulation Joseph Rolle DO Work Phone: [facility] 09-07-2008 influenza virus vacc ine, unspecified formulation Joseph Rolle DO Work Phone: [facility] Work Phone: 05-04-2008 tetanus toxoid, redu octavio diphtheria toxoid, and acellular pertussis vaccine, adsorbed Joseph Rolle DO Work Phone: [facility] Work Phone: 06-28-2007 influenza virus vacc jcarlos, unspecified formulation Joseph Rolle DO Work Phone: [facility] Work Phone: 08-31-2005 pneumococcal polysaccharide vaccine, 23 valent Joseph Rolle DO Work Phone: [facility] Work Phone: Payers Date Payer Category Payer Self-pay [id number] 2017 Medicare HU[employer]NA MEDICARE HU[employer]NA MEDICARE PPO [id number] 2017-Present [phone] [place] [address] PPO [id number] 2017 Medicare HUMANA MEDICARE HU[employer]NA MEDICARE PPO [id number] 2017-Present [phone] [place] [id number] PPO [id number] 2016 Medicare [id number] Private Health Insurance Unknown [id number] 2..840.1.608298.3.579. 2.462 Unknown [id number] 2.840.1.745755.3.579. 2.462 Unknown [id number] 2.840.1.175323.3.579. 2.462 Unknown [id number] 2.840.1.015961.3.579. 2.462 Unknown [id number] 2.840.1.778736.3.579. 2.462 Unknown [id number] 2.840.1.197324.3.579. 2.462 Unknown [id number] 2.840.1.721591.3.579. 2.462 Unknown [id number] 2.840.1.863236.3.579. 2.462 Unknown [id number] 2.840.1.467856.3.579. 2.462 Unknown [id number] 2.840.1.831536.3.579. 2.462 Unknown [id number] 2.840.1.840767.3.579. 2.462 Unknown [id number] 2.840.1.764198.3.579. 2.462 Unknown [id number] 2.840.1.920978.3.579. 2.462 Unknown [id number] 2.840.1.482872.3.579. 2.462 Unknown [id number] 2.840.1.888874.3.579. 2.462 Unknown [id number] 2.840.1.613747.3.579. 2.462 Unknown [id number] 2.840.1.118250.3.579. 2.462 Unknown [id number] 2.840.1.165185.3.579. 2.462 Unknown [id number] 2.840.1.114266.3.579. 2.462 Unknown [id number] 2.840.1.143266.3.579. 2.462 Unknown [id number] 2.840.1.508778.3.579. 2.462 Unknown [id number] 2.16840.1.041002.3.579. 2.462 Unknown [id number] 2.840.1.612949.3.579. 2.462 Unknown [id number] 2.840.1.329877.3.579. 2.462 Unknown [id number] 2.840.1.741905.3.579. 2.462 Unknown [id number] 2.840.1.569214.3.579. 2.462 Unknown [id number] 2.840.1.068570.3.579. 2.462 Unknown [id number] 2.840.1.799238.3.579. 2.462 Unknown [id number] 2.840.1.675753.3.579. 2.462 Unknown [id number] 2.840.1.331684.3.579. 2.462 Unknown [id number] 2.840.1.618640.3.579. 2.462 Unknown [id number] 2.840.1.677137.3.579. 2.462 Unknown [id number] .840.1.492275.3.579. 2.462 Unknown [id number] 2.840.1.516517.3.579. 2.462 Unknown [id number] 2.840.1.966061.3.579. 2.462 Unknown [id number] 2.840.1.576447.3.579. 2.462 Unknown [id number] 2.840.1.133527.3.579. 2.462 Unknown [id number] 2.16.840.1.106844.3.579. 2.462 Social History Date Type Detail Facility Start: 12-06-2021 End: 08-13-2023 Tobacco smoking status ILIS Unknown if ever smoked [facility] Start: 12-02-2019 None [facility] Start: 12-02-2019 Spouse/ Signif icant Other [facility] Start: 07-06-2020 Non-smoker [facility] Start: 1945 Sex Assigned At Female [facility] Start: 02-03-2012 End: 02-15-2025 Tobacco smoking status NHIS Ex-smoker [facility] End: 01-30-2012 History of tobacco use Current smoker [facility] End: 01-30-2012 History of tobacco use Cigarette Smoker [facility] Start: 02-03-2012 End: 03-22-2012 Cigarettes smoked current (pack per day) - Reported 0.5 [facility] Start: 02-03-2012 End: 03-22-2012 Tobacco use and exposure Smokeless tobacco non-user [facility] Start: 05-07-2021 End: 05-07-2022 Alcohol intake Current non-drinker of alcohol (finding) [facility] Start: 1945 Sex Assigned At Not on file [facility] Start: 10-05-2021 End: 11-04-2021 Exposure to SARS-CoV-2 (event) Not sure [facility] NEGATED: Highlighted row [facility] Medical Equipment Procedure Code Equipment Code Equipment Origin al Text Equipment Identifier Dates 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 Start: 12-28-2023 Primary uncemented hemiarthroplasty of hip unitrax neck adjustment sleeve FDA Start: 12-28-2023 Primary uncemented hemiarthroplasty of hip ([id number]) [id number] FDA Start: 12-28-2023 Primary uncemented hemiarthroplasty of [...] /State Functional Status Date Assessment Result Facility 02-17-2025 Functional status Chair [facility] Work Phone: 02-16-2025 [facility] Work [facility]: 02-13-2025 [facility] Work Phone: 02-06-2025 Functional status Chair [facility] Work Phone: 01-24-2025 [facility] Work Phone: 01-23-2025 Functional status Fair [facility] Work Phone: 12-30-2023 Functional status Bedrest [facility] Work Phone: 08-17-2023 Functional status [facility] Work Phone: Mental Status Date Assessment Result Facility 02-17-2025 Cognitive function [facility] Work Phone: 02-13-2025 Cognitive function Voice/Name [facility] Work Phone: 02-06-2025 Cognitive function Voice/Name [facility] Work Phone: 01-24-2025 Cognitive function Voice/Name [facility] Work Phone: 12-30-2023 Cognitive function Voice/Name [facility] Work Phone: 08-17-2023 Cognitive function Voice/Name [facility] Work Phone: 08-13-2023 Cognitive function Level Of Cons ciousness Awake;Alert;Appropriate;Follow s Commands [facility] Work Phone: 01-28-2023 Cognitive function Level Of Cons ciousness Awake;Alert;Appropriate;Follow s Commands [facility] Work Phone: Clinical Notes 03-14-2021 to 02-17-2025 Note Date & Type Note Facility 02-17-2025 Discharge summary Note Date/Time February 17, 2025 5:15pm [facility] Medical Records Department [address] [place] [address] Discharge Summary 02/17/25 1713 MR#: [id number] Acct: [id number] Name: OLGA DONALDSON Rep #:[id number] : 1945 80 From: Heydi Amaya MD PCP: Dr. Ramone Smiley MD Status:ADM JESS Location: [place] [address] Providers Date of Admission: 02/15/25 Date of Discharge: 02/17/25 Primary Care Physician: Dr. Ramone Smiley MD Reason For Visit: ACUTE ON CHRONIC DEBILITY Diagnosis Discharge Diagnosis (1) Debility: Status: Acute Code(s): R53.81 - Other malaise (2) Dyspnea: Status: Acute Code(s): R06.00 - Dyspnea, unspecified Plan # worsening debility # shortness of breath in the setting of chronic hypoxic respiratory failure presently on home O2 improved with increase in steroids and scheduled nebs w/ recent parainfluenza 3 infection #Elevated troponin secondary to demand from hypoxia pre hospital #Type 2 diabetes mellitus #GERD Medications at Discharge Home Medications aspirin 81 mg chewable tablet 81 mg PO DAILY HEART HEALTH 01/21/16 magnesium oxide 400 mg (241.3 [...] C) 250 mg PO DAILY SUPPLEMENT 08/13/23 roflumilast 500 mcg tablet 500 mcg PO DAILY COPD 08/13/23 insulin lispro 100 unit/mL subcutaneous pen (Humalog KwikPen (U-100) Insulin) 10unit subcut TIDAC short acting insulin 12/30/23 budesonide 160 mcg-glycopyr 9 mcg-formot 4.8 mcg/actuation HFA inhaler (Breztri Aerosphere) 2 inh inhalation BID breathing 01/07/25 diltiazem HCl 180 mg capsule,extended release 24 hr, controlled 180 mg PO DAILY heart 01/07/25 insulin glargine 100 unit/mL (3 mL) subcutaneous pen (Lantus Solostar U-100 Insulin) 20 unit subcut BID diabetes 01/07/25 ipratropium bromide 21 mcg (0.03 %) nasal spray 1 - 2 spray intranasal Q6H PRN allergy symptoms 01/07/25 lancets 28 gauge (TRUEplus Lancets) 01/07/25 acetaminophen 500 mg tablet 1,000 mg PO Q6H PRN Pain Score 1-3 01/15/25 azelastine 137 mcg (0.1 %) nasal spray 1 - 2 spray intranasal BID nasal spray 01/15/25 mecobalamin (vitamin B12) 1,000 mcg chewable tablet (B12 Active) 1,000 mcg PO DAILY health maintenance 01/15/25 menthol 0.44 %-zinc oxide 20.6 % topical ointment (CalaSoothe) 1 applic topical 4X/DAY PRN skin irritation 01/15/25 netarsudil 0.02 %-latanoprost 0.005 % eye drops (Rocklatan) 1 drp EACH EYE DAILYeye drops 01/15/25 psyllium husk 0.4 gram capsule (Daily Fiber) 0.4 g PO DAILY constipation 01/15/25 tirzepatide 5 mg/0.5 mL subcutaneous pen injector (Mounjaro) 5 mg subcut QWEEK diabetes 01/15/25 potassium chloride 20 mEq tablet,extended release (K-Tab) 20 meq PO BID supplement 02/04/25 Held on 02/17/25. Instructions: Resume on 02/19/25. furosemide 20 mg tablet (Lasix) 60 mg (3 x 20 mg) PO BID #180 tabs 02/06/25 ipratropium 0.5 mg-albuterol 3 mg (2.5 mg base)/3 mL nebulization soln 3 ml inhalation Q6H.RT #120 amps 02/06/25 sacubitril 24 mg-valsartan 26 mg tablet (Entresto) 1 tab PO BID #60 tabs 02/07/25 albuterol sulfate 90 mcg/actuation aerosol inhaler 2 puff inhalation Q6H PRN shortness of breath or wheezing 02/09/25 cetirizine 10 mg tablet 10 mg PO DAILY 02/09/25 hydroxyzine HCl 25 mg tablet 12.5 mg PO QHS allergies 02/09/25 gabapentin 100 mg capsule 100 mg PO QHS NERVE PAIN 3 days #3 caps 02/17/25 guaifenesin 600 mg tablet, extended release 12 hr (Mucinex) 600 mg PO BID #0 tabs 02/17/25 prednisone 20 mg tablet See Taper PO BREAKFAST #15 tabs 02/17/25 Hospital Course Summary of Care Provided Minutes Spent on Discharge: 26 Hospital Course: 80y/o F history of GERD, COPD, hypertension, diabetes who presented to [facility] ED 02/16/2025 with shortness of breath and increasing debility. Recently hospitalized here 02/10 through 02/13 for COPD exacerbation secondary to parainfluenza 3 and was also hospitalized in late December and early January for COPD and CHF exacerbations. Reportedly pulse ox at home in the low 80sand she has been more short of breath despite reported compliance with her medications. She is having difficulty caring for herself and family brought patient back in for possible SNF placement. She did have slightly elevated troponin in the ED which down trended but never had chest pain, suspected that this was from her hypoxia at home and otherwise no new acute process noted in ED. It was felt that her worsened breathing prior to presentation was due to quick decrease of prednisone without taper in light of her chronic respiratory problems which may have caused the quick worsening upon discharge as well as deconditioning from multiple hospitalizations so pt admitted and started on increased dose of p.o. prednisone and duonebs. During hospitalization patient did mention that she may not have had one of the inhalers or nebulizers, somewhat poor historian so difficult to assess what it was that she was out of but this may have contributed to her decline and subsequent readmission. Patient did well on the 40 of prednisone and nebulizers and was saturating in the 90s on the 2 L of nasal cannula that she had been discharged on. During patient's admission she did have spike of glucose but suspect this was the steroids in addition to decreased insulin dosing on admission (due to concerns that she may have hypoglycemia with change in diet) but given hyperglycemia willplan to discharge on patient's home regimen. On day of discharge patient reports breathing is feeling even better today but she still feels weak overall. She has no new or acute complaints and pre-CERT obtained so patient discharged to rehab in stable condition. Discharge instructions as follows: Discharge instructions as follows: DISCHARGE INSTRUCTIONS PLEASE READ *Please take this with you to your next doctors appointment* -You will be discharged on a prednisone taper: -40mg daily x3 days -30mg daily x3 days -20mg daily x3 days -10mg daily x3 days -Would recommend lab work (BMP) to check your potassium in 1 to 2 days and hold potassium supplementation until repeat labs are obtained -Recommend continuing scheduled nebulizers -Please call your primary care provider's office upon discharge to schedule a hospital follow up within 1 week. -For any concerning signs or symptoms please call 911 or proceed to the nearest emergency department Physical Exam Narrative General: Alert, oriented, no apparent distress HEENT: Atraumatic, normocephalic Eyes: Anicteric, normal conjunctiva, extraocular movements grossly intact Neck: Supple Respiratory: Normal respiratory effort, wheezes improving, no significant crackles or rhonchi Cardiovascular: Regular rate GI: Soft, nontender, nondistended Extremities: No significant pitting Musculoskeletal: Moving all extremities Neuro: No overt focal neurological deficits Skin: Some scaling on legs Psych: Cooperative Weight / BMI Weight Weight: 75.3 kg Body Mass Index (BMI) 29.4 ABG / Lab / Microbiology Data 02/17/25 05:35 02/17/25 05:35 Laboratory: Laboratory Results - last 24 hr 02/17/25 05:35: WBC 7.5, RBC 3.57 L, Hgb 9.9 L, Hct 32.6 L, MCV 91.3, MCH 27.7, MCHC 30.4 L, RDW Std Deviation 51.5 H, RDW Coeff of Vijay 15.6 H, Plt Count 246, MPV 11.2, Immature Gran % (Auto) 0.900, Neut % (Auto) 86.1 H, Lymph % (Auto) 7.8L, Worth % (Auto) 5.0, Eos % (Auto) 0.1, Baso % (Auto) 0.1, Absolute Neuts (auto)6.4, Absolute Lymphs (auto) 0.58 L, Nucleated RBC % 0, Sodium 134, Potassium 5.3H, Chloride 98, Carbon Dioxide 23.5, Anion Gap 12, BUN 27 H, Creatinine 1.15, Estim Creat Clear Calc 37.29 L, Est GFR (MDRD) Non-Af 48 L, BUN/Creatinine Ratio 23.0 H, Glucose 426 H, Calcium 10.3 02/17/25 07:21: POC Glucose 488 H* 02/17/25 11:03: POC Glucose 419 H 02/17/25 16:33: POC Glucose 241 H Microbiology: Microbiology 02/16/25 08:15 Sputum, Expectorated/Coughed Gram Stain - Final D/C Instructions DC O2, CPAP, BIPAP Needs Home O2 Discharge instructions: Yes Type of respiratory needs?: Oxygen Oxygen frequency: At rest and With Ambulation Oxygen liters per minute during Ambulation: 3 DC home with Oxygen: Yes Home O2 MD Review: I have reviewed the oxygen testing, and the patient qualifies for home oxygen equipment and portability. The patient is mobile in the home and the community. Meaningful Use Info Meaningful Use Meaningful Use [...] Simvastatin 80mg Discharge Plan Admission Admit Date/Time: 02/15/25 14:01 Primary Reason for Your Visit: Shortness of breath, general weakness Attending Provider: Heydi Amaya Primary Care Provider: Ramone Smiley Consulting Providers: Nestor Bartlett Instructions Patient Instructions: ED COPD Flare, ED Dyspnea Additional Instructions / Restrictions: DISCHARGE INSTRUCTIONS PLEASE READ *Please take this with you to your next doctors appointment* -You will be discharged on a prednisone taper: -40mg daily x3 days -30mg daily x3 days -20mg daily x3 days -10mg daily x3 days -Would recommend lab work (BMP) to check your potassium in 1 to 2 days and hold potassium supplementation until repeat labs are obtained -Recommend continuing scheduled nebulizers -Please call your primary care provider's office upon discharge to schedule a hospital follow up within 1 week. -For any concerning signs or symptoms please call 911 or proceed to the nearest emergency department Discharge Orders/Prescriptions Prescriptions: New guaifenesin [Mucinex] 600 mg Tablet Extended Release 12hr 600 mg PO BID Qty: 0 0RF prednisone 20 mg Tablet See Taper PO BREAKFAST Qty: 15 0RF Taper: Prednisone Taper 40 mg WITH BREAKFAST for 3 Days and 0 Hour 30 mg WITH BREAKFAST for 3 Days and 0 Hour 20 mg WITH BREAKFAST for 3 Days and 0 Hour 10 mg WITH BREAKFAST for 3 Days and 0 Hour Continued Januvia 50 mg tablet 50 mg [...] 40 MG tablet 40 mg PO DAILY roflumilast 500 mcg tablet 500 mcg PO [...] % Drops 1 drp EACH EYE DAILY ipratropium-albuterol 0.5 mg-3 mg(2.5 mg base)/3 mL Solution For Nebulization 3 ml inhalation Q6H.RT Qty: 120 0RF furosemide [Lasix] 20 mg tablet 60 mg PO BID Qty: 180 0RF albuterol sulfate 90 mcg/actuation HFA aerosol inhaler 2 puff inhalation Q6H PRN (Reason: shortness of breath or wheezing) cetirizine 10 mg tablet 10 mg PO DAILY hydroxyzine HCl 25 mg tablet 12.5 mg PO QHS gabapentin 100 mg capsule 100 mg PO QHS 3 Days Qty: 3 0RF diltiazem HCl 180 mg capsule,ext.rel 24h degradable 180 mg PO DAILY ipratropium bromide 21 mcg (0.03 %) spray,non-aerosol 1 - 2 spray INTRANASAL Q6H PRN (Reason: allergy symptoms) insulin glargine [Lantus Solostar U-100 Insulin] 100 unit/mL (3 mL) insulin pen 20 unit subcut BID (DME) lancets [TRUEplus Lancets] 28 gauge [facility] MISCELLANEOUS Breztri Aerosphere 160-9-4.8 mcg/actuation HFA aerosol inhaler 2 inh inhalation BID Entresto 24-26 mg tablet 1 tab PO BID Qty: 60 11RF Held potassium chloride [K-Tab] 20 mEq tablet extended release 20 meq PO BID Hold Instructions: Resume on 02/19/25. Discontinued prednisone 10 mg tablet 10 mg PO BID Qty: 20 0RF Referrals / Follow Up: Ramone Smiley MD [Primary Care Provider] - 3-5 Days Disposition Disposition (needs filled in before D/C Order can be placed): [facility] Charges/Coding Visit Charges Inpatient E&M: 26438 Disch Hosp 02/17/251714 <Electronically signed by Heydi Amaya MD> Cosigner Signature (if applicable): CC: Dr. Ramone Smiley MD; Dr. Heydi Amaya MD~ Signed [facility] Work Phone: [phone] 707-721106-20-2025 Discharge summary Author Heydi Amaya [facility] Note Date/Time February 17, 2025 5:13 pm [facility] Medical Records Department [address] [place] [address] Transfer to [facility] MR#: [id number] Acct: [id number] Name: OLGA DONALDSON Rep #:[id number] : 1945 80 From: Heydi Amaya MD PCP: Dr. Ramone Smiley MD Status:ADM JESS Certification of patient admission REQUIRED AT TIME OF ADMISSION. I CERTIFY THAT POST-HOSPITAL ECF SERVICES ARE REQUIRED TO BE GIVEN ON AN IN-PATIENT BASIS BECAUSE OF THE ABOVE NAMED PATIENT'S NEED FOR LONG-TERM CARE ON A CONTINUING BASIS FOR THE CONDITION(S) FOR WHICH HE/SHE WAS RECEIVING IN-PATIENT HOSPITAL SERVICES PRIOR TO HIS/HER TRANSFER TO THE [facility]ICAL [facility]. 02/17/251712<Electronically signed by Heydi Amaya MD> Diet Diet Order/Speech Therapy: INPATIENT Hospital Diet / Speech Therapy Order(s) 02/15/25 15:03 Diet: Consistent Carb - Calorie Controlled Food consistency:: Regular Liquid Consistency:: Regular/Thin How many daily calories?: 2000 calorie Routine Orders/Code Status Suppository Type: Dulcolax 10mg Suppository Frequency: Daily PRN Routine Lab Work: BMP (-Would recommend lab work (BMP) to check your potassium in 1 to 2 days and hold potassium supplementation until repeat labs are obtained) Code Status: Full Code DC O2, CPAP, BIPAP needs Home O2 Discharge instructions: Yes Type of respiratory needs?: Oxygen Oxygen frequency: At rest and With Ambulation Oxygen liters per minute during Ambulation: 3 Therapies Physical Therapy: Eval and Treat Occupational Therapy: Eval and Treat Problem/Diagnosis (1) Debility: Status: Acute Code(s): R53.81 - Other malaise (2) Dyspnea: Status: Acute Code(s): R06.00 - Dyspnea, unspecified Plan 80y/o F history of GERD, COPD, hypertension, diabetes who presented to [facility] ED 02/16/2025 with shortness of breath and increasing debility. Recently hospitalized here 02/10 through 02/13 for COPD exacerbation secondary to parainfluenza 3 and was also hospitalized in late December and early January for COPD and CHF exacerbations. Reportedly pulse ox at home in the low 80sand she has been more short of breath despite reported compliance with her medications. She is having difficulty caring for herself and family brought patient back in for possible SNF placement. She did have slightly elevated troponin in the ED which down trended but never had chest pain, suspected that this was from her hypoxia at home and otherwise no new acute process noted in ED. It was felt that her worsened breathing prior to presentation was due to quick decrease of prednisone without taper in light of her chronic respiratory problems which may have caused the quick worsening upon discharge as well as deconditioning from multiple hospitalizations so pt admitted and started on increased dose of p.o. prednisone and duonebs. During hospitalization patient did mention that she may not have had one of the inhalers or nebulizers, somewhat poor historian so difficult to assess what it was that she was out of but this may have contributed to her decline and subsequent readmission. Patient did well on the 40 of prednisone and nebulizers and was saturating in the 90s on the 2 L of nasal cannula that she had been discharged on. During patient's admission she did have spike of glucose but suspect this was the steroids in addition to decreased insulin dosing on admission (due to concerns that she may have hypoglycemia with change in diet) but given hyperglycemia willplan to discharge on patient's home regimen. On day of discharge patient reports breathing is feeling even better today but she still feels weak overall. She has no new or acute complaints and pre-CERT obtained so patient discharged to rehab in stable condition. Discharge instructions as follows: Discharge instructions as follows: DISCHARGE INSTRUCTIONS PLEASE READ *Please take this with you to your next doctors appointment* -You will be discharged on a prednisone taper: -40mg daily x3 days -30mg daily x3 days -20mg daily x3 days -10mg daily x3 days -Would recommend lab work (BMP) to check your potassium in 1 to 2 days and hold potassium supplementation until repeat labs are obtained -Recommend continuing scheduled nebulizers -Please call your primary care provider's office upon discharge to schedule a hospital follow up within 1 week. -For any concerning signs or symptoms please call 911 or proceed to the nearest emergency department Allergies/Procedures Done in Hospital Allergies adhesive tape (tape) Allergy (Verified 02/09/25 11:59) NEEDS FOLLOW-UP CLOTH TAPE cephalexin monohydrate (From Keflex) Allergy (Verified 02/09/25 11:59) Rash clopidogrel bisulfate (From Plavix) Allergy (Verified 02/09/25 11:59) Other amoxicillin Adverse Reaction (Verified 02/09/25 11:59) YEAST INFECTION Type of Care/Length of Stay Estimated LOS: Convalescent Care Less Than 30 days Type of Care Needed: Skilled Rehab Potential: Fair Prognosis: Fair Additional Orders/Day of Discharge Day of Discharge: 02/17/25 Discharge Plan Admission Admit Date/Time: 02/15/25 14:01 Primary Reason for Your Visit: Shortness of breath, general weakness Attending Provider: Heydi Amaya Primary Care Provider: Ramone Smiley Consulting Providers: Nestor Bartlett Instructions Patient Instructions: ED COPD Flare, ED Dyspnea Additional Instructions / Restrictions: DISCHARGE INSTRUCTIONS PLEASE READ *Please take this with you to your next doctors appointment* -You will be discharged on a prednisone taper: -40mg daily x3 days -30mg daily x3 days -20mg daily x3 days -10mg daily x3 days -Would recommend lab work (BMP) to check your potassium in 1 to 2 days and hold potassium supplementation until repeat labs are obtained -Recommend continuing scheduled nebulizers -Please call your primary care provider's office upon discharge to schedule a hospital follow up within 1 week. -For any concerning signs or symptoms please call 911 or proceed to the nearest emergency department Discharge Orders/Prescriptions Prescriptions: New guaifenesin [Mucinex] 600 mg Tablet Extended Release 12hr 600 mg PO BID Qty: 0 0RF prednisone 20 mg Tablet See Taper PO BREAKFAST Qty: 15 0RF Taper: Prednisone Taper 40 mg WITH BREAKFAST for 3 Days and 0 Hour 30 mg WITH BREAKFAST for 3 Days and 0 Hour 20 mg WITH BREAKFAST for 3 Days and 0 Hour 10 mg WITH BREAKFAST for 3 Days and 0 Hour Continued Januvia 50 mg tablet 50 mg [...] 40 MG tablet 40 mg PO DAILY roflumilast 500 mcg tablet 500 mcg PO [...] % Drops 1 drp EACH EYE DAILY ipratropium-albuterol 0.5 mg-3 mg(2.5 mg base)/3 mL Solution For Nebulization 3 ml inhalation Q6H.RT Qty: 120 0RF furosemide [Lasix] 20 mg tablet 60 mg PO BID Qty: 180 0RF albuterol sulfate 90 mcg/actuation HFA aerosol inhaler 2 puff inhalation Q6H PRN (Reason: shortness of breath or wheezing) cetirizine 10 mg tablet 10 mg PO DAILY hydroxyzine HCl 25 mg tablet 12.5 mg PO QHS gabapentin 100 mg capsule 100 mg PO QHS 3 Days Qty: 3 0RF diltiazem HCl 180 mg capsule,ext.rel 24h [...] HFA aerosol inhaler 2 inh inhalation BID Entresto 24-26 mg tablet 1 tab PO BID Qty: 60 11RF Held potassium chloride [K-Tab] 20 mEq tablet extended release 20 meq PO BID Hold Instructions: Resume on 02/19/25. Discontinued prednisone 10 mg tablet 10 mg PO BID Qty: 20 0RF Referrals / Follow Up: Ramone Smiley MD [Primary Care Provider] - 3-5 Days Disposition Disposition (needs filled in before D/C Order can be placed): [facility] 02/17/25 1713 <Electronically signed by Heydi Amaya MD> Cosigner Signature (if applicable): CC: Dr. Nestor Bartlett DO; Dr. Ramone Smiley MD ~ [facility] Work Phone: [phone] 253-265106-19-2025 Progress note Author Heydi [facility] Note Date/Time February 16, 2025 4:45 pm [facility] Medical Records Department [address] [place] [id number] Progress Note - Hospitalist 02/16/25 0829 MR#: [id number] Acct: [id number] Name: OLGA DONALDSON Rep #:[id number] : 1945 80 From: Heydi Amaya MD PCP: Dr. Ramone Smiley MD Status:ADM JESS [facility] Reason for Visit Reason for Visit: Diagnoses Weakness (02/15/25) Subjective Subjective Pt reports breathing is feeling better than on presentation, no new or acute complaints other than feeling debilitated and is motivated to go to SNF for rehab to get stronger Objective Data Objective Data Vital Signs: Vital Signs Temp Pulse Resp BP Pulse Ox O2 Del Method O2 Flow Rate 98.1 F 90 20 H 117/51 L 95 Nasal Cannula 3 02/16/25 04:50 02/16/25 07:13 02/16/25 07:13 02/16/25 04:50 02/16/25 07:13 02/16/25 07:13 02/16/25 07:13 Oxygen Flow Rate (L/min) 3 Oxygen Delivery Method Nasal Cannula Weight: 77 kg Body Mass Index (BMI) 30.0 Intake & Output: Intake and Output for Last 24 Hours 02/14/25 02/15/25 02/16/25 23:59 23:59 23:59 Intake Total 700 / 700 150 / 150 Output Total 1400 / 1400 Balance -700 / -700 150 / 150 Lab / Micro Data 02/16/25 08:15 02/16/25 08:15 Labs: Laboratory Results - last 24 hr 02/15/25 10:55: WBC 9.0, RBC 3.74 L, Hgb 10.1 L, Hct 33.5 L, MCV 89.6, MCH 27.0,MCHC 30.1 L, RDW Std Deviation 52.9 H, RDW Coeff of Vijay 16.2 H, Plt Count 243, MPV 10.4, Immature Gran % (Auto) 1.000 H, Neut % (Auto) 82.5 H, Lymph % (Auto) 10.9 L, Worth % (Auto) 4.8, Eos % (Auto) 0.7, Baso % (Auto) 0.1, Absolute Neuts (auto) 7.5, Absolute Lymphs (auto) 0.98, Nucleated RBC % 0, Sodium 138, Potassium 4.3, Chloride 98, Carbon Dioxide 30.9, Anion Gap 9, BUN 24 H, Creatinine 1.04, Estim Creat Clear Calc 41.98 L, Est GFR (MDRD) Non-Af 54 L, BUN/Creatinine Ratio 23.1 H, Glucose 97, Calcium 10.7, Troponin T High Sens 117 H*, NT pro BNP II 4408 H, Procalcitonin 0.27 H 02/15/25 12:35: Troponin T Hi Sens 2 Hr 113 H* 02/15/25 15:05: Troponin T Hi Sens 4Hr 114 H* 02/15/25 17:07: POC Glucose 80 02/15/25 22:15: POC Glucose 152 H 02/16/25 06:47: POC Glucose 63 L 02/16/25 07:30: POC Glucose 91 Radiography Diagnostic Testing: Radiology Impression Chest X-Ray 02/15/25 12:15 IMPRESSION: No convincing radiographic evidence of acute cardiopulmonary process. Reading Location: [facility] Physical Exam Narrative General: Alert, oriented, no apparent distress HEENT: Atraumatic, normocephalic Eyes: Anicteric, normal conjunctiva, extraocular movements grossly intact Neck: Supple Respiratory: Normal respiratory effort, scattered wheezes Cardiovascular: Regular rate GI: Soft, nontender, nondistended Extremities: No edema Musculoskeletal: Moving all extremities Neuro: No overt focal neurological deficits Skin: Some scaling on legs Psych: Cooperative Assessment & Plan Assessment/Plan (1) Debility: (2) Dyspnea: PLAN: Plan 80y/o F history of GERD, COPD, hypertension, diabetes who presented to [facility] ED 02/16/2025 with shortness of breath and increasing debility. Recently hospitalized here 02/10 through 02/13 for COPD exacerbation secondary to parainfluenza 3 and was also hospitalized in late December and early January for COPD and CHF exacerbations. Reportedly pulse ox at home in the low 80sand she has been more short of breath despite compliance with her medications. She is having difficulty caring for herself and family brought patient back in for possible SNF placement. No new acute process noted in ED, it was felt that abrupt cessation of prednisone without taper in light of her chronic respiratoryproblems may have caused the quick worsening upon discharge as well as deconditioning from multiple hospitalizations so pt admitted and started on PO pred and duonebs. # worsening debility - Acute worsening of chronic debility - PT/OT - case management consult - Pursuing placement # shortness of breath in the setting of chronic hypoxic respiratory failure presently on home O2 - patient saturating in the 90s on 3 L O2 here now - had recent paraInfluenza 3 pneumonia and was discharged 02/13, at the time of hospitalization was on IV steroids and DuoNebs - placed on DuoNebs and oral prednisone here, would likely benefit from prednisone taper on discharge as this may have contributed to her quick decline after discharge Given chest x-ray with no acute process and BNP actually lower than previous - Breathing improved, patient will be stable for transfer to SNF once accepted #Elevated troponin - Initial troponin 94 with increased to 139 and subsequent decrease to 114 - suspect this was due to patient's reported hypoxia at home and high suspicion that this is secondary in nature and not primary process - Denies any chest pain, breathing improving with the prednisone and breathing treatments #Type 2 diabetes mellitus -Glucose checks and sliding scale insulin - Continue long-acting insulin #GERD -Continue PPI #DVT ppx: Lovenox subcu Heydi Amaya MD Charges/Coding Visit Charges Inpatient E&M: 07670 Subs Hosp L2 02/16/25 1645 <Electronically signed by Heydi Amaya MD> Cosigner Signature (if applicable): CC: ~ Signed [facility] Work Phone: [phone] Discharge summary Author Robert Allison [facility] Note Date/Time February 15, 2025 3:14 pm [facility] Medical Records Department [address] [place] [address] Emergency Department Summary 02/15/25 MR#: [id number] Acct: [id number] Name: OLGA DONALDSON Rep #:[id number] : 1945 80 From: Robert Allison DO PCP: Dr. Ramone Smiley MD Status:ADM JESS Location: [place] [address] HPI History of Present Illness Chief Complaint: Shortness of Breath Detail of Chief Complaint: Shortness of breath Informant: patient Narrative Narrative: Patient presents with shortness of breath that started yesterday. She was just discharged from the hospital 2 days ago for dyspnea and hypoxemia. She was diagnosed with COPD exacerbation and parainfluenza infection at that time. Patient states that she wears 2 to 3 L of O2 at all times. This morning she dropped her oxygen and could not reach it and when she called her he washard of hearing and had a hard time getting him to respond. EMS found patient to be 82% on room air. She does have a cough. Denies fever or chest pain. [facility] Medical History (Updated 02/15/25 @ 13:[address] Robert Allison DO) History of diabetes mellitus COPD exacerbation Hypoxia Elevated troponin Acute dyspnea Poor venous access Diabetic polyneuropathy Hypomagnesemia Debility Weakness Gastroenteritis Abscess Postmenopausal bleeding GERD (gastroesophageal reflux disease) COPD (chronic obstructive pulmonary disease) History of constipation Asthma Osteoporosis COPD with exacerbation Anemia History of COPD Elevated brain natriuretic peptide (BNP) level Elevated troponin Acute hypoxemic respiratory failure Obesity (BMI 30.0-34.9) Elevated troponin Lactic acidosis Fracture of hip, left, closed Coronary artery [...] embolism History of malignant neoplasm of breast Hypertension Type 2 diabetes mellitus Home Medications ?Medication ?Instructions ?Recorded ?Last Taken ?Type aspirin 81 mg chewable tablet 81 mg PO DAILY HEART HEA LTH 01/21/16 01/15/25 History magnesium oxide 400 mg (241.3 mg 400 mg PO BID SUPPLEM ENT 08/16/18 01/15/25 History magnesium) tablet metoprolol tartrate 25 mg tablet 25 mg PO BID BLOOD SD ESSURE 08/16/18 01/15/25 History pantoprazole 40 mg [...] 160 mcg-glycopyr 9 2 inh inhalation BID franklyn athing 01/07/25 01/15/25 History mcg-formot 4.8 mcg/actuation HFA inhaler (Breztri Aerosphere) diltiazem HCl 180 mg 180 mg PO DAILY heart 01/15/25 History capsule,extended release 24 hr, controlled insulin glargine 100 unit/mL (3 20 unit subcut BID marco a betes 01/07/25 01/15/25 History mL) subcutaneous pen (Lantus Solostar U-100 [...] 1 - 2 spray intranasa l BID nasal 01/15/25 01/15/25 History spray spray mecobalamin (vitamin B12) 1,000 1,000 mcg PO DAILY hea lth 01/15/25 01/15/25 History mcg chewable tablet (B12 Active) maintenance menthol 0.44 %-zinc oxide 20.6 % 1 applic topical 4X/D AY PRN skin 01/15/25 Unknown History topical ointment (CalaSoothe) irritation netarsudil 0.02 %-latanoprost 1 drp EACH EYE DAILY eye drops 01/15/25 01/15/25 History 0.005 % eye drops (Rocklatan) psyllium husk 0.4 gram capsule 0.4 g PO DAILY constipa tion 01/15/25 01/15/25 History (Daily Fiber) tirzepatide 5 mg/0.5 mL 5 mg subcut QWEEK diabetes 0 01/15/25 Unknown History subcutaneous pen injector (Fitzuntrisharo) potassium chloride 20 mEq 20 meq PO BID supplement 03/24 Unknown History tablet,extended release (K-Tab) furosemide 20 mg tablet (Lasix) 60 mg (3 x 20 mg) PO B ID #180 tabs 02/06/25 Unknown Rx ipratropium 0.5 mg-albuterol 3 mg 3 ml inhalation Q6H. RT #120 amps 02/06/25 Unknown Rx (2.5 mg base)/3 mL nebulization soln prednisone 10 mg tablet 10 mg PO BID #20 tabs Unknown Rx sacubitril 24 mg-valsartan 26 mg 1 tab PO BID #60 tabs 02/07/25 Unknown Rx tablet (Entresto) albuterol sulfate 90 mcg/actuation 2 puff inhalation Q 6H PRN 02/09/25 Unknown History aerosol inhaler shortness of breath or wheez ing cetirizine 10 mg tablet 10 mg PO DAILY 02/09/25 Unkn own History hydroxyzine HCl 25 mg tablet 12.5 mg PO QHS allergies 02/09/25 Unknown History Allergy/AdvReac Type Severity Reaction Status Date / Time adhesive tape (tape) Allergy NEEDS Verified 02/09/25 11:59 FOLLOW-UP cephalexin monohydrate (From Allergy Rash Verified 02/09/25 11:59 Keflex) clopidogrel bisulfate (From Allergy Other Verified 02/09/25 11:59 Plavix) amoxicillin AdvReac YEAST Verified 02/09/25 11:59 INFECTION Family History Daughter Breast cancer Father Hypertension Sister Cancer Kidney disease Mother Pancreatic cancer Surgical History (Updated 02/14/25 @ 00:01 by Patel Vaz) History of left hip hemiarthroplasty S/P fine [...] orthopnea or racing heartbeat Respiratory/Chest Respiratory/Chest: Reports cough, dyspnea and dyspnea on exertion; Denies orthopnea or sputum Gastrointestinal Gastrointestinal: Denies abdominal pain, diarrhea, nausea or vomiting Genitourinary Genitourinary ED: Denies dysuria, hematuria or urinary frequency Musculoskeletal Musculoskeletal: Denies arthralgias, back pain, myalgias or neck pain Integumentary Denies abscess, Abrasions or rash Neurologic Neurologic: Denies headache(s) or weakness Psychiatric Psychiatric: Denies anxiety, depression or suicidal thoughts Endocrine Endocrinology: Denies polydipsia, polyphagia or polyuria Hematologic/Lymphatic Hematologic/Lymphatic: Denies easy bleeding, easy bruising or lymphadenopathy Allergic/Immunologic Allergic/Immunologic ED: Denies mouth swelling, tongue swelling or urticaria EXAM Physical Exam Const Vital Signs: 02/15/25 08:36 02/15/25 08:36 02/15/25 09:26 Temperature 98.6 F Temperature Source Oral Pulse Rate 112 H 98 Respiratory Rate 22 H 17 Respiratory Effort Short of Breath Labored Respiratory Depth Shallow Respiratory Pattern Tachypnea Normal Blood Pressure 111/61 Blood Pressure Mean 77 Pulse Ox 92 Oxygen Delivery Method Room Air Oxygen Flow Rate (L/min) 02/15/25 11:00 02/15/25 11:19 02/15/25 11:19 Temperature 99.5 F H Temperature Source Oral Pulse Rate 105 H Respiratory Rate 30 H Respiratory Effort Respiratory Depth Respiratory Pattern Blood Pressure 120/49 L Blood Pressure Mean 72 Pulse Ox 84 97 Oxygen Delivery Method Room Air Room Air Nasal Cannula Oxygen Flow Rate (L/min) 3 02/15/25 11:52 02/15/25 13:54 02/15/25 13:54 Temperature 99.6 F H 99.6 F H Temperature Source Oral Pulse Rate 103 H 99 98 Respiratory Rate 26 H 24 H 22 H Respiratory Effort Respiratory Depth Respiratory Pattern Blood Pressure 123/57 H 110/53 L 110/53 L Blood Pressure Mean 79 72 72 Pulse Ox 97 97 98 Oxygen Delivery Method Nasal Cannula Nasal Cannula Oxygen Flow Rate (L/min) 3 3 Positive well nourished and well developed General [...] for tenderness Resp normal respiratory effort and No clear to auscultation bilaterally Resp Narrative: Course breath sounds bilaterally with some rhonchi and faint expiratory wheezes. Mild tachypnea. No city alderman muscles or retractions Effort and Inspection: Negative for respiratory distress or pain with movement Auscultation: Negative for rhonchi, wheezes or diminished lung sounds Cardio regular rhythm, S1 normal heart sound, S2 normal heart sound and no murmurs; Negative for regular rate Rate: tachycardic Peripheral Pulses: pulses 2+ throughout [...] Narrative Medical decision making narrative: Patient presents with dyspnea after dropping her oxygen today. Was unable to reach it. Presents via EMS. Recent admission for parainfluenza pneumonia and COPD exacerbation. Patient was given a DuoNeb aerosol on arrival. IV line established which was difficult. CBC with differential obtained showed white count of 9.0 with hemoglobin 10.1 and platelet count of 243. Chemistries unremarkable. 124 creatinine 1.04. Troponin was elevated at 117 but noting that she chronically has this type of elevation. BT ADVERTISING SPACE CLERK also elevated 4408 however this is significantly lower than during admission. Patient also was noted that during admission she had a CTA of the chest that showed no evidence of infiltrate or PE. On 3 L patient is satting well in the mid 90s. Patient comfortable going home with her oxygen. I do not think she needs any further workup and I do not think she needs admission again. Prior to discharge her sonarrived to the ER and noted that she has had multiple admissions in last 2 months and multiple visits to the ER. They are requesting placement to rehab facility. feeder worker power unit operator saw patient and asked that we admit patient for placement. Will discuss with hospitalist. Lab Data Attestation: I reviewed the patient's lab results. Labs: Laboratory Results - last 24 hr 02/15/25 02/15/25 10:55 12:35 WBC 9.0 RBC 3.74 L Hgb 10.1 L Hct 33.5 L MCV 89.6 MCH 27.0 MCHC 30.1 L RDW Std Deviation 52.9 H RDW Coeff of Vijay 16.2 H Plt Count 243 MPV 10.4 Immature Gran % (Auto) 1.000 H Neut % (Auto) 82.5 H Lymph % (Auto) 10.9 L Worth % (Auto) 4.8 Eos % (Auto) 0.7 Baso % (Auto) 0.1 Absolute Neuts (auto) 7.5 Absolute Lymphs (auto) 0.98 Nucleated RBC % 0 Sodium 138 Potassium 4.3 Chloride 98 Carbon Dioxide 30.9 Anion Gap 9 BUN 24 H Creatinine 1.04 Estim Creat Clear Calc 41.98 L Est GFR (MDRD) Non-Af 54 L BUN/Creatinine Ratio 23.1 H Glucose 97 Calcium 10.7 Troponin T High Sens 117 H* Troponin T Hi Sens 2 Hr 113 H* NT pro BNP II 4408 H Radiography Diagnostic Testing: Clinical Impression(s) from Imaging Studies Chest X-Ray 02/15/25 12:15 IMPRESSION: No convincing radiographic evidence of acute cardiopulmonary process. Reading [facility] 1 view chest x-ray obtained interpreted myself as no evidence of infiltrate or pneumothorax or acute disease process. Radiology in agreement. EKG Initial EKG: Attestation: I personally reviewed and interpreted this EKG as follows: Comments: Sinus rhythm with ventricular rate of [address] changes Discharge Plan Triage Chief Complaint: Shortness of Breath ED Provider: Robert Allison Dx/Rx/DC Orders Clinical Impression: Dyspnea, COPD exacerbation Instructions: ED COPD Flare, ED Dyspnea Prescriptions: No Action Januvia 50 [...] 1 drp EACH EYE DAILY potassium chloride [K-Tab] 20 mEq tablet extended release 20 meq PO BID ipratropium-albuterol 0.5 mg-3 mg(2.5 mg base)/3 mL Solution For Nebulization 3 ml inhalation Q6H.RT Qty: 120 0RF prednisone 10 mg tablet 10 mg PO BID Qty: 20 0RF furosemide [Lasix] 20 mg tablet 60 mg PO BID Qty: 180 0RF albuterol sulfate 90 mcg/actuation HFA aerosol inhaler 2 puff inhalation Q6H PRN (Reason: shortness of breath or wheezing) cetirizine 10 mg tablet 10 mg PO DAILY hydroxyzine HCl 25 mg tablet 12.5 mg PO QHS diltiazem HCl 180 mg capsule,ext.rel 24h degradable 180 mg PO DAILY ipratropium bromide 21 mcg (0.03 %) spray,non-aerosol 1 - 2 spray INTRANASAL Q6H PRN (Reason: allergy symptoms) insulin glargine [Lantus Solostar U-100 Insulin] 100 unit/mL (3 mL) insulin pen 20 unit subcut BID (DME) lancets [TRUEplus Lancets] 28 gauge misc MISCELLANEOUS Breztri Aerosphere 160-9-4.8 mcg/actuation HFA aerosol inhaler 2 inh inhalation BID Entresto 24-26 mg tablet 1 tab PO BID Qty: 60 11RF Primary Care Provider: Ramone Smiley Referrals: Ramone Smiley MD [Primary Care Provider] - 3-5 Days Print Language: Hungarian Disposition Disposition: Acute Care Hospital [facility] What to do if you have Problems For any increased pain, shortness of breath, bleeding, nausea or vomiting, chestpain, or any unexpected problems, contact your Primary Care Provider. Call [facility] ([phone]) or report to the closest Emergency Room. Call 911 if necessary. 02/15/25 0194 <Electronically signed by Robert Allison DO> Cosigner Signature (if applicable): CC: Dr. Ramone Smiley MD ~ Signed [facility] Work Phone: 1([phone] 597-153406-18-2025 History and physical note Author Nestor Bartlett [facility] Note Date/Time February 15, 2025 2:57 pm [facility] Medical Records Department [address] [place] [address] H&P Exam - Hospitalist 02/15/25 1401 MR#: [id number] Acct: [id number] Name: OLGA DONALDSON Rep #:[id number] : 1945 80 From: Nestor roman DO PCP: Dr. Ramone Smiley MD Status:ADM JESS Location: [place] [id number] HPI - General General Date of Admission: 02/15/25 Date of Service: 02/15/25 Chief Complaint: Shortness of breath, acute on chronic debility HPI Narrative OLGA DONALDSON, is a 80 F who presented to [facility] ED on 02/15/2025 with shortness of breath and worsening ability. Patient was recently hospitalized here from 02/10-02/13 for COPD exacerbation secondary to parainfluenza 3 virus. She was also hospitalized in late December and early January forCOPD and CHF exacerbations. She was discharged home with home health care on 02/13. She lives at home with her and son. She has remained very fatigued at home with limited functional status and today she felt more short ofbreath despite being on supplemental oxygen that she did the previous 2 days. She noted that her pulse ox was reading in the low 80s. She has been using her breathing treatments as normal with mild to moderate relief of symptoms at home. Has also been taking her Lasix as prescribed with reported good urine output. In the ED today she did have a low- grade temp of 99.7F and mild sinus tachycardia to the 100s. She otherwise was breathing comfortably on 3 L nasal cannula at rest. Chest x-ray was unremarkable and improved from previous. BNP 4400 but this notably is improved from 9600 on 02/09. Plan was to discharge patient home but patient family noted that they had difficulty caring for her athome and would like SNF placement on discharge. Hospitalist was then contacted for admission. I saw the patient at bedside in the ED. She was fatigued appearing and did have crackles noted in her upper airways bilaterally with wet cough noted. However she otherwise was breathing comfortably on 3 L nasal cannula at rest. On chart review, had borderline therapy scores on previous admission with 6 click score of 21 but initial ambulation distance of only 40 feet. She denies any fevers or chills, chest pain or shortness of breath currently. Will be admitted for further management. [facility] Medical History (Updated 02/15/25 @ 13:[address] Robert Allison DO) History of diabetes mellitus COPD exacerbation Hypoxia Elevated troponin Acute dyspnea Poor venous access Diabetic polyneuropathy Hypomagnesemia Debility Weakness Gastroenteritis Abscess Postmenopausal bleeding GERD (gastroesophageal reflux disease) COPD (chronic obstructive pulmonary disease) History of constipation Asthma Osteoporosis COPD with exacerbation Anemia History of COPD Elevated brain natriuretic peptide (BNP) level Elevated troponin Acute hypoxemic respiratory failure Obesity (BMI 30.0-34.9) Elevated troponin Lactic acidosis Fracture of hip, left, closed Coronary artery [...] embolism History of malignant neoplasm of breast Hypertension Type 2 diabetes mellitus Home Medications ?Medication ?Instructions ?Recorded ?Last Taken ?Type aspirin 81 mg chewable tablet 81 mg PO DAILY HEART HEA LTH 01/21/16 01/15/25 History magnesium oxide 400 mg (241.3 mg 400 mg PO BID SUPPLEM ENT 08/16/18 01/15/25 History magnesium) tablet metoprolol tartrate 25 mg tablet 25 mg PO BID BLOOD SD ESSURE 08/16/18 01/15/25 History pantoprazole 40 mg [...] 160 mcg-glycopyr 9 2 inh inhalation BID franklyn athing 01/07/25 01/15/25 History mcg-formot 4.8 mcg/actuation HFA inhaler (Breztri Aerosphere) diltiazem HCl 180 mg 180 mg PO DAILY heart 01/15/25 History capsule,extended release 24 hr, controlled insulin glargine 100 unit/mL (3 20 unit subcut BID marco a betes 01/07/25 01/15/25 History mL) subcutaneous pen (Lantus Solostar U-100 [...] 1 - 2 spray intranasa l BID nasal 01/15/25 01/15/25 History spray spray mecobalamin (vitamin B12) 1,000 1,000 mcg PO DAILY hea lth 01/15/25 01/15/25 History mcg chewable tablet (B12 Active) maintenance menthol 0.44 %-zinc oxide 20.6 % 1 applic topical 4X/D AY PRN skin 01/15/25 Unknown History topical ointment (CalaSoothe) irritation netarsudil 0.02 %-latanoprost 1 drp EACH EYE DAILY eye drops 01/15/25 01/15/25 History 0.005 % eye drops (Rocklatan) psyllium husk 0.4 gram capsule 0.4 g PO DAILY constipa tion 01/15/25 01/15/25 History (Daily Fiber) tirzepatide 5 mg/0.5 mL 5 mg subcut QWEEK diabetes 0 01/15/25 Unknown History subcutaneous pen injector (Mountrisharo) potassium chloride 20 mEq 20 meq PO BID supplement 03/24 Unknown History tablet,extended release (K-Tab) furosemide 20 mg tablet (Lasix) 60 mg (3 x 20 mg) PO B ID #180 tabs 02/06/25 Unknown Rx ipratropium 0.5 mg-albuterol 3 mg 3 ml inhalation Q6H. RT #120 amps 02/06/25 Unknown Rx (2.5 mg base)/3 mL nebulization soln prednisone 10 mg tablet 10 mg PO BID #20 tabs Unknown Rx sacubitril 24 mg-valsartan 26 mg 1 tab PO BID #60 tabs 02/07/25 Unknown Rx tablet (Entresto) albuterol sulfate 90 mcg/actuation 2 puff inhalation Q 6H PRN 02/09/25 Unknown History aerosol inhaler shortness of breath or wheez ing cetirizine 10 mg tablet 10 mg PO DAILY 02/09/25 Unkn own History hydroxyzine HCl 25 mg tablet 12.5 mg PO QHS allergies 02/09/25 Unknown History Allergy/AdvReac Type Severity Reaction Status Date / Time adhesive tape (tape) Allergy NEEDS Verified 02/09/25 11:59 FOLLOW-UP cephalexin monohydrate (From Allergy Rash Verified 02/09/25 11:59 Keflex) clopidogrel bisulfate (From Allergy Other Verified 02/09/25 11:59 Plavix) amoxicillin AdvReac YEAST Verified 02/09/25 11:59 INFECTION Family History Daughter Breast cancer Father Hypertension Sister Cancer Kidney disease Mother Pancreatic cancer Surgical History (Updated 02/14/25 @ 00:01 by Background Татьяна) History of left hip hemiarthroplasty S/P fine [...] social history: [place]- retired ROS Constitutional Constitutional: Reports fatigue and weakness; Denies chills or fever(s) Eyes Eyes: Denies change in vision Cardiovascular Cardiovascular: Denies chest pain, dyspnea on exertion, edema, lightheadedness or palpitations Respiratory/Chest Respiratory/Chest: Reports cough, productive cough and shortness of breath with exertion; Denies shortness of breath at rest or wheezing Gastrointestinal Gastrointestinal: Denies abdominal pain Musculoskeletal Musculoskeletal: Denies arthralgias or myalgias Neurologic Neurologic: Denies dizziness, focal weakness or headache(s) Vital Signs Vital Signs Vital Signs: 02/15/25 08:36 02/15/25 08:36 02/15/25 09:26 Temperature 98.6 F Temperature Source Oral Pulse Rate 112 H 98 Respiratory Rate 22 H 17 Respiratory Effort Short of Breath Labored Respiratory Depth Shallow Respiratory Pattern Tachypnea Normal Blood Pressure 111/61 Blood Pressure Mean 77 Pulse Ox 92 Oxygen Delivery Method Room Air Oxygen Flow Rate (L/min) 02/15/25 11:00 02/15/25 11:19 02/15/25 11:19 Temperature 99.5 F H Temperature Source Oral Pulse Rate 105 H Respiratory Rate 30 H Respiratory Effort Respiratory Depth Respiratory Pattern Blood Pressure 120/49 L Blood Pressure Mean 72 Pulse Ox 84 97 Oxygen Delivery Method Room Air Room Air Nasal Cannula Oxygen Flow Rate (L/min) 3 02/15/25 11:52 02/15/25 13:54 02/15/25 13:54 Temperature 99.6 F H 99.6 F H Temperature Source Oral Pulse Rate 103 H 99 98 Respiratory Rate 26 H 24 H 22 H Respiratory Effort Respiratory Depth Respiratory Pattern Blood Pressure 123/57 H 110/53 L 110/53 L Blood Pressure Mean 79 72 72 Pulse Ox 97 97 98 Oxygen Delivery Method Nasal Cannula Nasal Cannula Oxygen Flow Rate (L/min) 3 3 Weight Weight: 78.1 kg Body Mass Index (BMI) 30.4 Physical Exam Const alert, oriented x3 and no apparent distress Constitutional Narrative: Elderly female, class I obesity, fatigued and somewhat weak appearing, otherwisesitting back comfortably in bed, answering questions appropriately, in no acute distress. General Appearance: cooperative and comfortable HEENT normocephalic, head/scalp atraumatic, hearing grossly normal bilaterally, nasal mucous membranes and turbinates normal and moist oral mucous membranes Eyes PERRL, EOMs intact bilaterally and conjunctivae normal Neck full ROM Chest inspection of chest normal Resp normal respiratory effort and no use of accessory muscles Resp Narrative: Breathing comfortably on 3 L nasal cannula at rest. Mild crackles noted in upper airways bilaterally with wet cough noted on exam, but otherwise good air movement throughout with no wheezing noted. Cardio no murmurs and peripheral pulses 2+ throughout Cardio Narrative: Tachycardic, regular rhythm. GI normal to inspection, nondistended, normoactive bowel sounds, soft to palpation,non-tender and non-distended Back/Spine normal ROM Extremity normal to inspection, full ROM and no pedal edema Skin no rashes or lesions noted Psych mental status grossly normal Results Lab / Micro Data 02/15/25 10:55 02/15/25 10:55 Labs: Laboratory Results - last 24 hr 02/15/25 10:55: WBC 9.0, RBC 3.74 L, Hgb 10.1 L, Hct 33.5 L, MCV 89.6, MCH 27.0,MCHC 30.1 L, RDW Std Deviation 52.9 H, RDW Coeff of Vijay 16.2 H, Plt Count 243, MPV 10.4, Immature Gran % (Auto) 1.000 H, Neut % (Auto) 82.5 H, Lymph % (Auto) 10.9 L, Worth % (Auto) 4.8, Eos % (Auto) 0.7, Baso % (Auto) 0.1, Absolute Neuts (auto) 7.5, Absolute Lymphs (auto) 0.98, Nucleated RBC % 0, Sodium 138, Potassium 4.3, Chloride 98, Carbon Dioxide 30.9, Anion Gap 9, BUN 24 H, Creatinine 1.04, Estim Creat Clear Calc 41.98 L, Est GFR (MDRD) Non-Af 54 L, BUN/Creatinine Ratio 23.1 H, Glucose 97, Calcium 10.7, Troponin T High Sens 117 H*, NT pro BNP II 4408 H 02/15/25 12:35: Troponin T Hi Sens 2 Hr 113 H* Imaging Radiology Impression Chest X-Ray 02/15/25 12:15 IMPRESSION: No convincing radiographic evidence of acute cardiopulmonary process. Reading Location[facility] Assessment & Plan Assessment/Plan (1) Generalized weakness: PLAN: Plan Patient is an 80-year-old female who presented [facility] ED on 02/15/2025 with recurrent shortness of breath and acute on chronic debility. 1. Acute on chronic debility ? Admit under observation status to [facility]. PT/OT/case management consulted. Multiple recent hospitalizations for COPD and CHF exacerbations. Most recent hospitalization from 02/10-02/13 for COPD exacerbation secondary to parainfluenza 3 virus. Discharged home with home health care at that time. Has had poor functional status at home and patient and family requesting SNF on discharge. Appreciate therapy recommendations. 2. Recent parainfluenza 3 infection with COPD exacerbation in setting of chronic respiratory failure ? Recent hospitalization from 02/10-02/13 for COPD exacerbation secondary to parainfluenza 3 pneumonia. Improved with IV steroids and scheduled DuoNebs, wasdischarged home on 2 L at rest and 3 L with exertion. Satting in the mid to high 90s on 3 L at rest in the ED. Chest x-ray improved from previous. However, patient does have some crackles noted in upper airways bilaterally and wet cough noted. Also has a low-grade fever of 99.6F in the ED. Sputum cultureand procalcitonin ordered. Continue home scheduled DuoNebs every 6 hours and will treat with p.o. prednisone 40 mg daily; unclear if patient was discharged on prednisone taper but anticipate this would be beneficial for her. Will hold on antibiotics for now. Mucinex and incentive spirometry ordered as well. Continue home long-acting inhalers and roflumilast. 3. Elevated troponins in setting of chronic HFpEF, nonobstructive CAD, hypertension, hyperlipidemia, mild aortic stenosis ? Troponin trend 117 > 113 in the ED. Suspect demand ischemia secondary to somedegree of hypoxia at home as noted above. EKG with no ischemic changes. Follows with outpatient cardiology, last office visit on 01/31. Recent new diagnosis of HFrEF on echo on 01/20 with EF 35 to 40%, mildly dilated LV, moderate global LV hypokinesis; mild aortic stenosis noted that was stable from previous. Chest x-ray clear on admit. BNP 4400 but this is much improved from BNP 9600 on 02/09. Given her crackles and wet cough on exam in the ED as above, gave 1 dose of IV Lasix 60 mg and then will continue home p.o. Lasix 60 mg twicedaily. Continue home aspirin, statin, Entresto, diltiazem and Lopressor. Hold home Jardiance for now. No further cardiac workup needed at this time. 4. Type 2 diabetes mellitus with neuropathy ? Blood glucose 97 on admit. Patient reports poor appetite over the past several days. Will treat with reduced doses of Lantus 10 units twice daily, Humalog 5 units with meals plus sliding scale insulin, adjust as needed. Holding home Januvia and Mounjaro. Continue home gabapentin. 5. Mild chronic normocytic anemia ? Hemoglobin 10.1 on admit, at baseline 10-11. Stable. 6. GERD ? Continue home PPI. 7. Class I obesity ? BMI 30 on admit. Complicates hospital course, care and prognosis. DVT prophylaxis: Lovenox CODE STATUS: Full code, verified Expected disposition: Likely SNF, 1 to 2 days Total clinical time spent by myself addressing the patient's medical issues, reviewing all the data, and collaborating with patient's care team: 75 minutes. Charges/Coding Visit Charges Inpatient E&M: 76124 Init Hosp L3 02/15/25 1457 <Electronically signed by Nestor Bartlett DO> Cosigner Signature (if applicable): CC: Dr. Nestor Bartlett DO; Dr. Ramone Smiley MD~ Signed [facility] Work Phone: [phone]) 793-447306-18-2025 Radiology Diagnostic study [facility]06-16-2025 Discharge summary Author Lucio Borden [facility] Note Date/Time February 13, 2025 2:22 pm [facility] Medical Records Department [address] [place] [address] Instructions for Home/Discharge Instructions 02/13/25 1415 MR#: [id number] Acct: [id number] Name: OLGA DONALDSON Rep #:[id number] : 1945 80 From: Lucio Borden DO PCP: Dr. Ramone Smiley MD Status:ADM IN Discharge Instructions Diet Discharge Diet: 1800 Calorie Control Diet DC O2, CPAP, BIPAP needs Home O2 Discharge instructions: Yes Type of respiratory needs?: Oxygen Oxygen frequency: Continuous Continuous oxygen liters per minute: 2 L and With Ambulation Oxygen liters per minute during Ambulation: 3 L Dressing / Incision Discharge Activity: Return to Normal Activity Weight Bearing Status: Full weight bearing Follow Up Care Test Results: Test results from this visit will be discussed in further detail at your follow- up appointment, if applicable. Discharge Plan Admission Admit Date/Time: 02/09/25 15:00 Primary Reason for Your Visit: Parainfluenza 3 viral infection, exacerbation of COPD Attending Provider: Lucio Borden Primary Care Provider: Ramone Smiley Discharge Orders/Prescriptions Prescriptions: Continued Januvia 50 mg tablet 50 mg [...] 1 drp EACH EYE DAILY potassium chloride [K-Tab] 20 mEq tablet extended release 20 meq PO BID ipratropium-albuterol 0.5 mg-3 mg(2.5 mg base)/3 mL Solution For Nebulization 3 ml inhalation Q6H.RT Qty: 120 0RF prednisone 10 mg tablet 10 mg PO BID Qty: 20 0RF furosemide [Lasix] 20 mg tablet 60 mg PO BID Qty: 180 0RF albuterol sulfate 90 mcg/actuation HFA aerosol inhaler 2 puff inhalation Q6H PRN (Reason: shortness of breath or wheezing) cetirizine 10 mg tablet 10 mg PO DAILY hydroxyzine HCl 25 mg tablet 12.5 mg PO QHS diltiazem HCl 180 mg capsule,ext.rel 24h degradable 180 mg PO DAILY ipratropium bromide 21 mcg (0.03 %) spray,non-aerosol 1 - 2 spray INTRANASAL Q6H PRN (Reason: allergy symptoms) insulin glargine [Lantus Solostar U-100 Insulin] 100 unit/mL (3 mL) insulin pen 20 unit subcut BID (DME) lancets [TRUEplus Lancets] 28 gauge misc MISCELLANEOUS Breztri Aerosphere 160-9-4.8 mcg/actuation HFA aerosol inhaler 2 inh inhalation BID Entresto 24-26 mg tablet 1 tab PO BID Qty: 60 11RF Discontinued spironolacton-hydrochlorothiaz 25-25 mg tablet 0.5 tab PO DAILY Referrals / Follow Up: Ramone Smiley MD [Primary Care Provider] - In 1 Week Disposition Disposition (needs filled in before D/C Order can be placed): Home, Self Care 02/13/25 1422<Electronically signed by Lucio Borden DO>Lucio Borden DO CC: Dr. Ramone Smiley MD ~ Signed [facility] Work Phone: [phone]) 757-464706-16-2025 [facility]06-15-2025 Progress note Author [facility] Note Date/Time February 12, 2025 11:2 5am [facility] Medical Records Department [address] [place] [id number] Progress Note - Hospitalist 02/12/25 1123 MR#: [id number] Acct: [id number] Name: OLGA DONALDSON Rep #:[id number] : 1945 80 From: Lucio Borden DO PCP: Dr. Ramone Smiley MD Status:ADM IN Location: [place] [id number] Reason for Visit Reason for Visit: Diagnoses Chronic obstructive pulmonary disease with (acute) exacerbation (02/09/25) Hypoxemia (02/09/25) Subjective Subjective Patient was seen and examined today, she remains on 2 L of oxygen via nasal cannula. Patient still complains of constipation, she has had milk of magnesia and 5 ounces of mag citrate, I have elected to give her 10 ounces of mag citratetoday. Objective Data Objective Data Vital Signs: Vital Signs Temp Pulse Resp BP Pulse Ox O2 Del Method O2 Flow Rate 97.6 F L 82 18 129/57 H 95 Nasal Cannula 1 02/12/25 08:32 02/12/25 08:45 02/12/25 08:32 02/12/25 08:32 02/12/25 08:32 02/12/25 08:35 02/12/25 08:35 Oxygen Flow Rate (L/min) 1 Oxygen Delivery Method Nasal Cannula Weight: 76.657 kg Body Mass Index (BMI) 29.9 Intake & Output: Intake and Output for Last 24 Hours 02/10/25 02/11/25 02/12/25 23:59 23:59 23:59 Intake Total 752 / 752 300 / 500 450 / 450 Output Total 1450 / 1450 1500 / 1650 400 / 400 Balance -698 / -698 -1200 / -1150 50 / 50 Lab / Micro Data 02/09/25 12:23 02/10/25 05:36 Labs: Laboratory Results - last 24 hr 02/11/25 11:58: POC Glucose 257 H 02/11/25 16:39: POC Glucose 124 H 02/11/25 21:27: POC Glucose 276 H 02/12/25 06:16: POC Glucose 246 H 02/12/25 08:37: POC Glucose 312 H Micro: Microbiology 02/09/25 19:54 Mucosa - Nasopharyngeal Respiratory Panel (PCR) - Final Parainfluenza 3 Rhythm Strip Rhythm Strip: Sinus Rhythm Rate: 93 Ectopy: None Physical Exam Narrative alert, oriented x3 and no apparent distress General Appearance: cooperative, well kempt and well developed Orientation / Consciousness: awake, oriented to person, oriented to place and oriented to time HEENT normocephalic, head/scalp atraumatic and moist oral mucous membranes Eyes PERRL, EOMs intact bilaterally and conjunctivae normal Neck supple, no JVD, thyroid normal and no carotid bruits General: trachea midline Resp normal respiratory effort, no retractions and no use of accessory muscles Auscultation: wheezes expiratory wheezes and throughout; Negative for rales or rhonchi Cardio regular rate, regular rhythm, S1 normal heart sound, S2 normal heart sound, no murmurs, no rub and no gallops GI normal to inspection, nondistended, normoactive bowel sounds, soft to palpation,non-tender and non-distended Extremity no clubbing, cyanosis or edema Skin no rashes or lesions noted General Skin Exam: no breakdown Neuro oriented x3, CN's II-XII intact bilaterally, moves all extremities, no focal motor deficits and no sensory deficits noted Sensorium / Orientation: awake and alert Speech: speech normal Psych affect normal Assessment & Plan Assessment/Plan (1) COPD exacerbation: PLAN: Plan 1. Exacerbation of COPD secondary to parainfluenza 3 infection-patient will remain on aerosol treatments and IV Solu-Medrol #2 hypoxia secondary to #1-pulse ox will be monitored, oxygen will be weaned if possible #3 chronic diastolic congestive heart failure-patient will remain on IV Lasix #4 type 2 diabetes-blood sugars will be monitored, extra insulin was given todaydue to elevated blood sugar #5 ischemic cardiomyopathy-complicates care, management, recovery, and prognosis #6 infection with parainfluenza 3 virus-complicates care, management, recovery, and prognosis #7 constipation-again patient will be given 10 ounces of mag citrate today Total clinical time spent by myself addressing the patient's medical issues, reviewing all of her data, and collaborating with patient's care team: 35- minutes Charges/Coding Visit Charges Inpatient E&M: 23797 Subs Hosp L2 02/12/25 1125 <Electronically signed by Lucio Borden DO> Cosigner Signature (if applicable): CC: ~ Signed [facility] Work Phone: 1(701) 677-168806-14-2025 Progress note Author [facility] Note Date/Time February 11, 2025 4:29 pm [facility] Medical Records Department [address] [place] [address] Progress Note - Hospitalist 02/11/25 1621 MR#: [id number] Acct: [id number] Name: OLGA DONALDSON Rep #:[id number] : 1945 80 From: Lucio Borden DO PCP: Dr. Ramone Smiley MD Status:ADM IN Location: [place] [address] Reason for Visit Reason for Visit: Diagnoses Chronic obstructive pulmonary disease with (acute) exacerbation (02/09/25) Hypoxemia (02/09/25) Subjective Subjective Patient was seen and examined today, she requested medication for constipation, yesterday gave her milk of magnesia but according to nursing that was not enough. I had nursing give her 8 ounces of mag citrate. Objective Data Objective Data Vital Signs: Vital Signs Temp Pulse Resp BP Pulse Ox O2 Del Method O2 Flow Rate 98.8 F 41 L 18 127/62 H 96 Nasal Cannula 2 02/11/25 07:44 02/11/25 13:05 02/11/25 13:05 02/11/25 07:44 02/11/25 07:44 02/11/25 08:30 02/11/25 07:44 Oxygen Flow Rate (L/min) 2 Oxygen Delivery Method Nasal Cannula Weight: 76.657 kg Body Mass Index (BMI) 29.9 Intake & Output: Intake and Output for Last 24 Hours 02/09/25 02/10/25 02/11/25 23:59 23:59 23:59 Intake Total 150 / 150 752 / 752 300 / 300 Output Total 500 / 500 1450 / 1450 500 / 500 Balance -350 / -350 -698 / -698 -200 / -200 Lab / Micro Data 02/09/25 12:23 02/10/25 05:36 Labs: Laboratory Results - last 24 hr 02/10/25 16:52: POC Glucose 64 L 02/10/25 17:10: POC Glucose 78 02/10/25 21:45: POC Glucose 167 H 02/11/25 03:29: POC Glucose 206 H 02/11/25 06:38: POC Glucose 242 H 02/11/25 08:04: POC Glucose 305 H 02/11/25 11:58: POC Glucose 257 H Micro: Microbiology 02/09/25 19:54 Mucosa - Nasopharyngeal Respiratory Panel (PCR) - Final Parainfluenza 3 Rhythm Strip Rhythm Strip: Sinus Rhythm Rate: 93 Ectopy: None Physical Exam Narrative alert, oriented x3 and no apparent distress General Appearance: cooperative, well kempt and well developed Orientation / Consciousness: awake, oriented to person, oriented to place and oriented to time HEENT normocephalic, head/scalp atraumatic and moist oral mucous membranes Eyes PERRL, EOMs intact bilaterally and conjunctivae normal Neck supple, no JVD, thyroid normal and no carotid bruits General: trachea midline Resp normal respiratory effort, no retractions and no use of accessory muscles Auscultation: wheezes expiratory wheezes and throughout; Negative for rales or rhonchi Cardio regular rate, regular rhythm, S1 normal heart sound, S2 normal heart sound, no murmurs, no rub and no gallops GI normal to inspection, nondistended, normoactive bowel sounds, soft to palpation,non-tender and non-distended Extremity no clubbing, cyanosis or edema Skin no rashes or lesions noted General Skin Exam: no breakdown Neuro oriented x3, CN's II-XII intact bilaterally, moves all extremities, no focal motor deficits and no sensory deficits noted Sensorium / Orientation: awake and alert Speech: speech normal Psych affect normal Assessment & Plan Assessment/Plan (1) COPD exacerbation: PLAN: Plan 1. Exacerbation of COPD secondary to parainfluenza 3 infection-patient will remain on aerosol treatments and IV Solu-Medrol #2 hypoxia secondary to #1-pulse ox will be monitored, oxygen will be weaned if possible #3 chronic diastolic congestive heart failure-patient will remain on IV Lasix #4 type 2 diabetes-blood sugars will be monitored, extra insulin was given todaydue to elevated blood sugar #5 ischemic cardiomyopathy-complicates care, management, recovery, and prognosis #6 infection with parainfluenza 3 virus-complicates care, management, recovery, and prognosis Total clinical time spent by myself addressing the patient's medical issues, reviewing all of her data, and collaborating with patient's care team: 35- minutes Charges/Coding Visit Charges Inpatient E&M: 96453 Subs Hosp L2 02/11/25 1629 <Electronically signed by Lucio Borden DO> Cosigner Signature (if applicable): CC: ~ Signed [facility] Work Phone: 1(770) 303-258906-13-2025 Progress note Author Lucio Borden [facility] Note Date/Time February 10, 2025 5:29 pm [facility] Medical Records Department [address] [place] [address] Progress Note - Hospitalist 02/10/25 1720 MR#: [id number] Acct: [id number] Name: OLGA DONALDSON Rep #:[id number] : 1945 80 From: Lucio Borden DO PCP: Dr. Ramone Smiley MD Status:ADM IN Location: [facility] [id number] Reason for Visit Reason for Visit: Diagnoses Chronic obstructive pulmonary disease with (acute) exacerbation (02/09/25) Hypoxemia (02/09/25) Subjective Subjective Patient was seen and examined today, I talked with her son who was visiting, he had questions about why the patient returns to the hospital so much, I told him that this time she had a parainfluenza 3 infection. Objective Data Objective Data Vital Signs: Vital Signs Temp Pulse Resp BP Pulse Ox O2 Del Method O2 Flow Rate 97.2 F L 85 18 122/52 H 98 Nasal Cannula 2 02/10/25 14:00 02/10/25 14:00 02/10/25 14:00 02/10/25 14:00 02/10/25 14:00 02/10/25 14:06 02/10/25 14:06 Oxygen Flow Rate (L/min) 2 Oxygen Delivery Method Nasal Cannula Weight: 76.657 kg Body Mass Index (BMI) 29.9 Intake & Output: Intake and Output for Last 24 Hours 02/08/25 02/09/25 02/10/25 23:59 23:59 23:59 Intake Total 150 / 150 240 / 240 Output Total 500 / 500 750 / 750 Balance -350 / -350 -510 / -510 Lab / Micro Data 02/09/25 12:23 02/10/25 05:36 Labs: Laboratory Results - last 24 hr 02/09/25 17:04: POC Glucose 248 H 02/09/25 21:27: POC Glucose 401 H 02/10/25 05:36: Sodium 139, Potassium 4.9, Chloride 98, Carbon Dioxide 26.8, Anion Gap 14, BUN 23 H, Creatinine 1.10, Estim Creat Clear Calc 39.32 L, Est GFR(MDRD) Non-Af 50 L, BUN/Creatinine Ratio 20.8 H, Glucose 361 H, Calcium 10.0 02/10/25 11:44: POC Glucose 222 H Micro: Microbiology 02/09/25 19:54 Mucosa - Nasopharyngeal Respiratory Panel (PCR) - Final Parainfluenza 3 Rhythm Strip Rhythm Strip: Sinus Rhythm Rate: 93 Ectopy: None Physical Exam Const alert, oriented x3 and no apparent distress General Appearance: cooperative, well kempt and well developed Orientation / Consciousness: awake, oriented to person, oriented to place and oriented to time HEENT normocephalic, head/scalp atraumatic and moist oral mucous membranes Eyes PERRL, EOMs intact bilaterally and conjunctivae normal Neck supple, no JVD, thyroid normal and no carotid bruits General: trachea midline Resp normal respiratory effort, no retractions and no use of accessory muscles Auscultation: wheezes expiratory wheezes and throughout; Negative for rales or rhonchi Cardio regular rate, regular rhythm, S1 normal heart sound, S2 normal heart sound, no murmurs, no rub and no gallops GI normal to inspection, nondistended, normoactive bowel sounds, soft to palpation,non-tender and non-distended Extremity no clubbing, cyanosis or edema Skin no rashes or lesions noted General Skin Exam: no breakdown Neuro oriented x3, CN's II-XII intact bilaterally, moves all extremities, no focal motor deficits and no sensory deficits noted Sensorium / Orientation: awake and alert Speech: speech normal Psych affect normal Assessment & Plan Assessment/Plan (1) COPD exacerbation: PLAN: Plan 1. Exacerbation of COPD secondary to parainfluenza 3 infection-patient will remain on aerosol treatments and IV Solu-Medrol #2 hypoxia secondary to #1-pulse ox will be monitored, oxygen will be weaned if possible #3 chronic diastolic congestive heart failure-patient will remain on IV Lasix #4 type 2 diabetes-blood sugars will be monitored, extra insulin was given todaydue to elevated blood sugar #5 ischemic cardiomyopathy-complicates care, management, recovery, and prognosis Total clinical time spent by myself addressing the patient's medical issues, reviewing all of her data, and collaborating with patient's care team: 35- minutes Charges/Coding Visit Charges Inpatient E&M: 49413 Subs Hosp L2 02/10/25 4799 <Electronically signed by Lucio Borden DO> Cosigner Signature (if applicable): CC: ~ Signed [facility] Work Phone: 1(172) 775-539206-12-2025 History and physical note Author Tono Gomez [facility] Note Date/Time February 09, 2025 7:17 pm [facility] Medical Records Department [address] [place] [address] H&P Exam - Hospitalist 02/09/25 1525 MR#: [id number] Acct: [id number] Name: OLGA DONALDSON Rep #:[id number] : 1945 80 From: Tono BHATTI PCP: Dr. Ramone Smiley MD Status:ADM IN Location[place] [facility] [id number] Date of Service: 02/09/25 Chief Complaint: sob HPI Narrative OLGA DONALDSON, is a 80 F with pmhx of COPD with recent exacerabation, systolicand diastolic CHF, ischemic cardiomyopathy, T2DM on insulin, who presents with sob. She was discharged from the hospital on 02/06/25 after being treated for COPDand CHF exacerbation. At that time she did not qualify for home o2. She was doing well initially when she was discharged from the hospital until today. Today she became worse with increased SOB and mild productive cough. She states this is worse because it got more hot and humid at home and she was unable to get the air conditioner to respond adequately. She was brought to the ER and in the ER her O2 levels were decreased at 87% on RA and she is 95% on 2lpm O2 via NC. She notes that her LE edema is improving overall. She has no chest pain or chest pressure or tightness, no dizziness or lightheadedness, no palpitations. [facility] Medical History COPD with exacerbation Anemia History of COPD Elevated brain natriuretic peptide (BNP) level Elevated troponin Acute hypoxemic respiratory failure Elevated troponin Coronary artery disease Aortic stenosis Hypertension Obesity (BMI 30.0-34.9) Lactic acidosis Fracture of hip, left, closed Paronychia of left index finger Vaginal cyst Anxiety Depression Irregular heart beat Multiple thyroid nodules Foraminal stenosis of lumbar region Lumbar spinal stenosis Diabetic retinopathy Colon polyp Thyroid goiter Hyperlipidemia Hypokalemia Microcytic anemia Neurogenic bladder Hypophosphatemia Hypercalcemia Former smoker UTI (urinary tract infection) Iron deficiency anemia Hyponatremia Urine retention Chronic renal failure, stage [...] mg chewable tablet 81 mg PO DAILY HEART HEA LTH 01/21/16 01/15/25 History magnesium oxide 400 mg (241.3 mg 400 mg PO BID SUPPLEM ENT 08/16/18 01/15/25 History magnesium) tablet metoprolol tartrate 25 mg tablet 25 mg PO BID BLOOD SD ESSURE 08/16/18 01/15/25 History pantoprazole 40 mg [...] 160 mcg-glycopyr 9 2 inh inhalation BID franklyn athing 01/07/25 01/15/25 History mcg-formot 4.8 mcg/actuation HFA inhaler (Breztri Aerosphere) diltiazem HCl 180 mg 180 mg PO DAILY heart 01/15/25 History capsule,extended release 24 hr, controlled insulin glargine 100 unit/mL (3 20 unit subcut BID marco a betes 01/07/25 01/15/25 History mL) subcutaneous pen (Lantus Solostar U-100 [...] 1 - 2 spray intranasa l BID nasal 01/15/25 01/15/25 History spray spray mecobalamin (vitamin B12) 1,000 1,000 mcg PO DAILY hea lth 01/15/25 01/15/25 History mcg chewable tablet (B12 Active) maintenance menthol 0.44 %-zinc oxide 20.6 % 1 applic topical 4X/D AY PRN skin 01/15/25 Unknown History topical ointment (CalaSoothe) irritation netarsudil 0.02 %-latanoprost 1 drp EACH EYE DAILY eye drops 01/15/25 01/15/25 History 0.005 % eye drops (Rocklatan) psyllium husk 0.4 gram capsule 0.4 g PO DAILY constipa tion 01/15/25 01/15/25 History (Daily Fiber) tirzepatide 5 mg/0.5 mL 5 mg subcut QWEEK diabetes 0 01/15/25 Unknown History subcutaneous pen injector (Mounjaro) potassium chloride 20 mEq 20 meq PO BID supplement 03/24 Unknown History tablet,extended release (K-Tab) furosemide 20 mg tablet (Lasix) 60 mg (3 x 20 mg) PO B ID #180 tabs 02/06/25 Unknown Rx ipratropium 0.5 mg-albuterol 3 mg 3 ml inhalation Q6H. RT #120 amps 02/06/25 Unknown Rx (2.5 mg base)/3 mL nebulization soln prednisone 10 mg tablet 10 mg PO BID #20 tabs Unknown Rx sacubitril 24 mg-valsartan 26 mg 1 tab PO BID #60 tabs 02/07/25 Unknown Rx tablet (Entresto) albuterol sulfate 90 mcg/actuation 2 puff inhalation Q 6H PRN 02/09/25 Unknown History aerosol inhaler shortness of breath or wheez ing cetirizine 10 mg tablet 10 mg PO DAILY 02/09/25 Unkn own History hydroxyzine HCl 25 mg tablet 12.5 mg PO QHS allergies 02/09/25 Unknown History spironolactone 25 0.5 tab PO DAILY 02/09/25 Un known History mg-hydrochlorothiazide 25 mg tablet Allergy/AdvReac Type Severity Reaction Status Date / Time adhesive tape (tape) Allergy NEEDS Verified 02/09/25 11:59 FOLLOW-UP cephalexin monohydrate (From Allergy Rash Verified 02/09/25 11:59 Keflex) clopidogrel bisulfate (From Allergy Other Verified 02/09/25 11:59 Plavix) amoxicillin AdvReac YEAST Verified 02/09/25 11:59 INFECTION Family History Daughter Breast cancer Father Hypertension [...] Merion- retired ROS Constitutional Constitutional: Denies chills, fever(s) or weakness Eyes Eyes: Denies blurry vision ENT HEENT: Denies nasal congestion, sinus pressure or sore throat Cardiovascular Cardiovascular: Denies chest pain, edema, lightheadedness or palpitations Respiratory/Chest Respiratory/Chest: Reports cough, dyspnea and productive cough Gastrointestinal Gastrointestinal: Denies abdominal pain, diarrhea, nausea or vomiting Genitourinary Genitourinary: Denies burning urination Musculoskeletal Musculoskeletal: Denies arthralgias Neurologic Neurologic: Denies abnormal gait Psychiatric Psychiatric: Denies anxiety Endocrine Endocrinology: Denies change in body appearance Hematologic/Lymphatic Hematologic/Lymphatic: Reports anemia Allergic/Immunologic Allergic/Immunologic: Denies rhinitis Vital Signs Vital Signs Vital Signs: 02/09/25 11:52 02/09/25 12:05 02/09/25 12:05 Temperature 98.8 F Temperature Source Oral Pulse Rate 94 Respiratory Rate 18 Respiratory Effort Short of Breath Respiratory Depth Shallow Respiratory Pattern Tachypnea Blood Pressure 113/64 Blood Pressure Mean 80 Pulse Ox 91 87 Oxygen Delivery Method Room Air Room Air Room Air Oxygen Flow Rate (L/min) 02/09/25 12:09 02/09/25 12:27 02/09/25 12:30 Temperature 98.4 F Temperature Source Oral Pulse Rate 92 86 Respiratory Rate 22 H 30 H Respiratory Effort Respiratory Depth Respiratory Pattern Blood Pressure 112/76 118/52 L Blood Pressure Mean 88 74 Pulse Ox 94 93 92 Oxygen Delivery Method Nasal Cannula Nasal Cannula Nasal Cannula Oxygen Flow Rate (L/min) 2 2 2 02/09/25 12:39 02/09/25 12:39 02/09/25 13:30 Temperature 98.3 F Temperature Source Oral Pulse Rate 88 110 H Respiratory Rate 27 H 16 Respiratory Effort Respiratory Depth Respiratory Pattern Tachypnea Blood Pressure 132/75 H Blood Pressure Mean 94 Pulse Ox 92 91 Oxygen Delivery Method Nasal Cannula Nasal Cannula Oxygen Flow Rate (L/min) 2 2 02/09/25 14:00 02/09/25 14:15 02/09/25 14:45 Temperature 98.4 F Temperature Source Oral Pulse Rate 86 Respiratory Rate 25 H Respiratory Effort Respiratory Depth Respiratory Pattern Blood Pressure 103/68 Blood Pressure Mean 79 Pulse Ox 100 95 87 Oxygen Delivery Method Nasal Cannula Room Air Room Air Oxygen Flow Rate (L/min) 2 02/09/25 15:03 02/09/25 15:08 02/09/25 15:12 Temperature 99 F 99 F Temperature Source Oral Pulse Rate 91 94 Respiratory Rate 22 H 25 H Respiratory Effort Respiratory Depth Respiratory Pattern Blood Pressure 136/46 H 136/46 H Blood Pressure Mean 76 76 Pulse Ox 87 90 91 Oxygen Delivery Method Room Air Nasal Cannula Oxygen Flow Rate (L/min) 2 Weight Weight: 77.2 kg Body Mass Index (BMI) 30.1 Physical Exam Const alert, oriented x3 and no apparent distress General Appearance: cooperative HEENT normocephalic and head/scalp atraumatic Eyes PERRL Neck no lymphadenopathy Resp normal respiratory effort Auscultation: wheezes expiratory wheezes Cardio regular rate, regular rhythm and no murmurs Extremity Extremity Narrative: trace pitting edema BL LE Skin Skin Narrative: dry scaly LE skin Neuro oriented x3 Psych affect normal Results Lab / Micro Data 02/09/25 12:23 02/09/25 12:23 Labs: Laboratory Results - last 24 hr 02/09/25 12:23: WBC 9.4, RBC 4.22, Hgb 11.5 L, Hct 37.9, MCV 89.8, MCH 27.3, MCHC 30.3 L, RDW Std Deviation 51.3 H, RDW Coeff of Vijay 15.8 H, Plt Count TNP, MPV 12.0, Immature Gran % (Auto) 0.800, Neut % (Auto) 86.9 H, Lymph % (Auto) 7.3L, Worth % (Auto) 4.5, Eos % (Auto) 0.1, Baso % (Auto) 0.4, Absolute Neuts (auto)8.2 H, Absolute Lymphs (auto) 0.69 L, Nucleated RBC % 0.6, Platelet Estimate ADEQUATE, Sodium 140, Potassium 4.3, Chloride 98, Carbon Dioxide 29.9, Anion Gap12, BUN 23 H, Creatinine 1.16, Estim Creat Clear Calc 37.42 L, Est GFR (MDRD) Non-Af 47 L, BUN/Creatinine Ratio 20.2 H, Glucose 173 H, Calcium 10.2, Troponin T High Sens 122 H* D, NT pro BNP II 9616 H 02/09/25 14:29: Troponin T Hi Sens 2 Hr 119 H* Rhythm Strip Rhythm Strip: Sinus Rhythm Rate: 93 Ectopy: None Imaging Radiology Impression Chest X-Ray 02/09/25 12:18 IMPRESSION: Cardiomegaly. Mild degree of bibasilar linear atelectasis. Reading Location: [facility] Assessment & Plan Assessment/Plan (1) COPD exacerbation: PLAN: 1. Acute COPD exacerbation with acute hypoxia - admit to meds surg. 87% RAin ER, 95% on 2lpm, no prior home o2 use. no evidence of acute infectious process. cxr with some atelectasis, EKG NSR. Very wheezy on exam throughout all white. pt placed on IV solumedrol and breathing treatments. 2. Indetermine troponin - troponin decreased since last visit. she has no CP, pressure, tightness, LH, or palp and a normal EKG. There is low suspicion for anacute cardiac process 3. Chronic systolic and diastolic CHF -BNP is chronically elevated. overall her LE edema is improved. She will be on 20 mg IV lasix q8h 4. Hx Ischemic CM - on entresto, lasix, aspirin, statin, metoprolol, cardizem 5. T2DM - continue home regimen plus sliding scale insulin DVT ppx: heparin Code status: discussed with Pt, she is Full Code. DC planning: is not interested in SNF, she wants to go home, and may need home o2 at discharge This patient was seen by Tono Gomez PA-C under the supervision of Doctor Mihci. (2) Hypoxia: 02/09/25 1552 <Electronically signed by Tono BHATTI> Cosigner Signature (if applicable): CC: DAVY Dykes; Dr. Ramone Smiley MD; Dr. Lucio Borden DO~ Signed ADDENDUM by Dr. Lucio Borden DO on 02/09/25 at 1917 Addendum Patient was seen and examined today, her voice is hoarse and she came to the emergency room today complaining of increased shortness of breath and was uncomfortable due to the fact she has no air conditioning in her home. Workup in the emergency room showed no evidence of pneumonia, patient's beta natrureticpeptide was again elevated and her troponin was elevated. Patient's pulse ox onroom air was 87%. On examination she appeared in good health and spirits, she does not appear to be in any distress. Her voice is hoarse. Vital signs as documented. Skin warm and dry and without overt rashes. Neck without JVD, thyroid appears normal, trachea is midline, neck is supple. Lungs there was diffuse expiratory wheezing over both lungs. Heart exam notable for regular rhythm, normal sounds and absence of murmurs, rubs or gallops. Abdomen unremarkable and without evidence of organomegaly, masses, or abdominal aortic enlargement, bowel sounds are present in all 4 quadrants, no abdominal tenderness was noted. Extremities nonedematous, no cyanosis was noted, no clubbing was noted. Neuro: Cranial nerves II through XII are grossly intact, no focal motor deficits were noted, sensation to light touch and pinprick is intact, motor exam 5/5 throughout. Psych: Patient is alert and oriented x3, she does not appear anxious or depressed, she does not appear agitated. Impression: #1 acute exacerbation of COPD-patient will be given IV Solu-Medrol and aerosol treatments, I respiratory panel was ordered due to the patient's laryngitis #2 acute hypoxia secondary to #1-pulse ox will be monitored, supplemental oxygenwill be adjusted #3 chronic congestive heart failure with decreased ejection fraction-patient's EF is 85%, she was placed on IV Lasix #4 type 2 diabetes-patient's blood sugars will be monitored, sliding scale insulin will be administered as needed #5 ischemic cardiomyopathy-complicates care, management, recovery, and prognosis, patient will remain on her home medications including Entresto Total clinical time spent by myself addressing the patient's medical issues, reviewing all of her data, and collaborating with patient's care team: 55 minutes I have reviewed the history and physical dictated by DAVY Dykes and agree with his assessment and findings. Visit Charges Inpatient E&M: 43132 Init Hosp L2 02/09/251916<Electronically signed by Lucio Borden DO> Cosigner Signature (if applicable): cc: DAVY Dykes; Dr. Ramone Smiley MD; Dr. Lucio Borden DO ~* Signed [facility] Work Phone: [phone]) [phone] Discharge summary Author Jeremiah Corrales [facility] Note Date/Time February 09, 2025 2:57 pm [facility] Medical Records Department [address] [place] [address] Emergency Department Summary 02/09/25 MR#: [id number] Acct: [id number] Name: OLGA DONALDSON Rep #:[id number] : 1945 80 From: Jeremiah Corrales MD PCP: Dr. Ramone Smiley MD Status:REG ER Location: ED HPI History of Present Illness Chief Complaint: Shortness of Breath Informant: patient Onset/Context/Timing Onset: Days Context: gradual Timing: Continuous Quality: Positive for Wheezing Current Severity: Moderate Maximum Severity: Moderate Worsened by: Exertion Relieved by: Oxygen and Albuterol Associated Symptoms cough Chest Pain: Positive for None Narrative Narrative: 80-year-old female history of COPD, CAD, anemia, diabetes. She lives at home. Does not have home O2 but does have inhaler and nebulizer. Said humidity in thehouse today due to the current weather and not having air conditioning made her shortness of breath worse. Wheezing and does not feel like she can take a deep breath. Nonproductive cough. No fever. No chills. No chest pain. No hemoptysis. No leg pain or swelling. No history of heart attack or stents. Noprior DVT or PE. Denies any melena. Was recently hospitalized for a COPD flare. PE Risk Factors: Negative for Cancer, OCP + Smoking + > 35, Prior DVT or PE, Recent surgery or Recent travel Prior similar symptoms: Yes Recent Illness/Hospitalization: Yes [facility] Medical History COPD with exacerbation Anemia History of COPD Elevated brain natriuretic peptide (BNP) level Elevated troponin Acute hypoxemic respiratory failure Elevated troponin Coronary artery disease Aortic stenosis Hypertension Obesity (BMI 30.0-34.9) Lactic acidosis Fracture of hip, left, closed Paronychia of left index finger Vaginal cyst Anxiety Depression Irregular heart beat Multiple thyroid nodules Foraminal stenosis of lumbar region Lumbar spinal stenosis Diabetic retinopathy Colon polyp Thyroid goiter Hyperlipidemia Hypokalemia Microcytic anemia Neurogenic bladder Hypophosphatemia Hypercalcemia Former smoker UTI (urinary tract infection) Iron deficiency anemia Hyponatremia Urine retention Chronic renal failure, stage [...] mg chewable tablet 81 mg PO DAILY HEART HEA LTH 01/21/16 01/15/25 History magnesium oxide 400 mg (241.3 mg 400 mg PO BID SUPPLEM ENT 08/16/18 01/15/25 History magnesium) tablet metoprolol tartrate 25 mg tablet 25 mg PO BID BLOOD SD ESSURE 08/16/18 01/15/25 History pantoprazole 40 mg [...] 160 mcg-glycopyr 9 2 inh inhalation BID franklyn athing 01/07/25 01/15/25 History mcg-formot 4.8 mcg/actuation HFA inhaler (Breztri Aerosphere) diltiazem HCl 180 mg 180 mg PO DAILY heart 01/15/25 History capsule,extended release 24 hr, controlled insulin glargine 100 unit/mL (3 20 unit subcut BID marco a betes 01/07/25 01/15/25 History mL) subcutaneous pen (Lantus Solostar U-100 [...] 1 - 2 spray intranasa l BID nasal 01/15/25 01/15/25 History spray spray mecobalamin (vitamin B12) 1,000 1,000 mcg PO DAILY hea lth 01/15/25 01/15/25 History mcg chewable tablet (B12 Active) maintenance menthol 0.44 %-zinc oxide 20.6 % 1 applic topical 4X/D AY PRN skin 01/15/25 Unknown History topical ointment (CalaSoothe) irritation netarsudil 0.02 %-latanoprost 1 drp EACH EYE DAILY eye drops 01/15/25 01/15/25 History 0.005 % eye drops (Rocklatan) psyllium husk 0.4 gram capsule 0.4 g PO DAILY constipa tion 01/15/25 01/15/25 History (Daily Fiber) tirzepatide 5 mg/0.5 mL 5 mg subcut QWEEK diabetes 0 01/15/25 Unknown History subcutaneous pen injector (Mounjaro) potassium chloride 20 mEq 20 meq PO BID supplement 03/24 Unknown History tablet,extended release (K-Tab) furosemide 20 mg tablet (Lasix) 60 mg (3 x 20 mg) PO B ID #180 tabs 02/06/25 Unknown Rx ipratropium 0.5 mg-albuterol 3 mg 3 ml inhalation Q6H. RT #120 amps 02/06/25 Unknown Rx (2.5 mg base)/3 mL nebulization soln prednisone 10 mg tablet 10 mg PO BID #20 tabs Unknown Rx sacubitril 24 mg-valsartan 26 mg 1 tab PO BID #60 tabs 02/07/25 Unknown Rx tablet (Entresto) Allergy/AdvReac Type Severity Reaction Status Date / Time adhesive tape (tape) Allergy NEEDS Verified 02/09/25 11:59 FOLLOW-UP cephalexin monohydrate (From Allergy Rash Verified 02/09/25 11:59 Keflex) clopidogrel bisulfate (From Allergy Other Verified 02/09/25 11:59 Plavix) amoxicillin AdvReac YEAST Verified 02/09/25 11:59 INFECTION Family History Daughter Breast cancer Father Hypertension [...] [place]- retired ROS ROS ED ROS Narrative Shortness of breath. Wheezing. Nonproductive cough. No chest pain. No leg swelling or pain. Constitutional Constitutional ED: Denies chills or fever(s) Eyes Eyes: Denies blurry vision Cardiovascular Cardiovascular: Denies chest pain Respiratory/Chest Respiratory/Chest: Reports cough and dyspnea; Denies sputum Gastrointestinal Gastrointestinal: Denies abdominal pain, diarrhea, melena, nausea or vomiting Genitourinary Genitourinary ED: Denies dysuria or hematuria Musculoskeletal Musculoskeletal: Denies arthralgias or back pain Integumentary Denies abscess Neurologic Neurologic: Denies headache(s) Psychiatric Psychiatric: Denies anxiety Endocrine Endocrinology: Denies cold intolerance or heat intolerance Hematologic/Lymphatic Hematologic/Lymphatic: Denies easy bleeding or easy bruising Allergic/Immunologic Allergic/Immunologic ED: Denies mouth swelling, tongue swelling or urticaria EXAM Physical Exam Narrative Exam Narrative: 80-year-old female sitting upright in bed. Vital signs initially her pulse ox was 91% on room air here. She is afebrile. She does not look septic or toxic. H EENT exam pupils round react light. Moist mucous membranes. Neck nontender no JVD. No lymphadenopathy. Lungs prolonged expiratory phase. Few scattered expiratory wheezes. No rales or rhonchi. Equal symmetrical. Heart regular rhythm rate about 90 no murmur. Chest wall ribs nontender. Abdomen soft nontender. Moving all 4 extremities. Nontender no edema no cords. Back nontender. Neurologically she is awake alert. Answering questions following commands. No focal motor deficits. Const Vital Signs: 02/09/25 11:52 02/09/25 12:05 02/09/25 12:05 Temperature 98.8 F Temperature Source Oral Pulse Rate 94 Respiratory Rate 18 Respiratory Effort Short of Breath Respiratory Depth Shallow Respiratory Pattern Tachypnea Blood Pressure 113/64 Blood Pressure Mean 80 Pulse Ox 91 87 Oxygen Delivery Method Room Air Room Air Room Air Oxygen Flow Rate (L/min) 02/09/25 12:09 02/09/25 12:27 02/09/25 12:30 Temperature 98.4 F Temperature Source Oral Pulse Rate 92 86 Respiratory Rate 22 H 30 H Respiratory Effort Respiratory Depth Respiratory Pattern Blood Pressure 112/76 118/52 L Blood Pressure Mean 88 74 Pulse Ox 94 93 92 Oxygen Delivery Method Nasal Cannula Nasal Cannula Nasal Cannula Oxygen Flow Rate (L/min) 2 2 2 02/09/25 12:39 02/09/25 12:39 02/09/25 13:30 Temperature 98.3 F Temperature Source Oral Pulse Rate 88 110 H Respiratory Rate 27 H 16 Respiratory Effort Respiratory Depth Respiratory Pattern Tachypnea Blood Pressure 132/75 H Blood Pressure Mean 94 Pulse Ox 92 91 Oxygen Delivery Method Nasal Cannula Nasal Cannula Oxygen Flow Rate (L/min) 2 2 02/09/25 14:00 02/09/25 14:15 02/09/25 14:45 Temperature 98.4 F Temperature Source Oral Pulse Rate 86 Respiratory Rate 25 H Respiratory Effort Respiratory Depth Respiratory Pattern Blood Pressure 103/68 Blood Pressure Mean 79 Pulse Ox 100 95 87 Oxygen Delivery Method Nasal Cannula Room Air Room Air Oxygen Flow Rate (L/min) 2 Positive well nourished and well developed; Negative for cachectic, contracturesor unkempt General Appearance ED: well developed; Negative for unkempt, cachectic, contractures, NAD or pallor Nutritional Appearance: Negative for cachectic HEENT Reports moist mucous membranes atraumatic; Negative for trauma or tenderness Eyes PERRL and EOMs intact bilaterally Neck no lymphadenopathy, supple, no meningeal signs and no JVD Resp normal respiratory effort and No clear to auscultation bilaterally Resp Narrative: Prolonged expiratory phase. Wheezes. Auscultation: wheezes Cardio regular rate, regular rhythm, S1 normal heart sound, S2 normal heart sound and no murmurs GI non-tender, non-distended and no masses Auscultation: normoactive bowel sounds Palpation: soft; Negative for tender, guarding or rebound tenderness present Back/Spine no CVA tenderness and normal to inspection Extremity normal to inspection General Extremety ED: Negative for edema or tenderness General Extremity: Negative for edema Neuro CN's II-XII intact bilaterally Sensorium / Orientation: alert, oriented to person, oriented to place and oriented to time; Negative for confused or lethargic Speech: speech normal Motor Exam: strength 5/5 throughout Psych mental status grossly normal Appearance: Negative for unkempt Attitude: No agitated Mood & Affect: Negative for depressed, anxious or tearful Thought Process: normal thought process Skin no wounds and skin turgor normal General Skin Exam: Negative for jaundice or pallor Lesions: no lesions Rashes: no rashes Trauma: Negative for abrasion or laceration MDM MDM MDM Narrative Medical decision making narrative: 80-year-old female with shortness of breath suspect exacerbation of COPD rule out pneumonia or CHF or other causes. She will need cardiac workup with a chestx- ray. Treated with IV Solu-Medrol, DuoNeb and albuterol aerosols. Repeat exam at 2:25 PM patient is improved. She is resting comfortably. Statesshe is feeling improved. We are going to take her off her oxygen. Have her ambulate and see if she gets hypoxic or not. I suspect this is secondary to those patient's COPD. They will get ready stand the patient a walker and her pulse ox dropped to 87%. She will be admitted for COPD exacerbation rule out CHF. Hospitalist is on page. Currently the patient is resting comfortably. History & Record Review Discussion w/independent historian: Patient Additional record(s) reviewed:: Prior inpatient record, Prior outpatient record,Prior ED visit and Prior labs Lab Data Attestation: I reviewed the patient's lab results. Lab results narrative: CBC shows a white count of 9. H&H 11.5 and 37.9. Platelets 2 numerous to count. Sodium 140. 12. BUN and creatinine of 23 and 1.1. Glucose 173. Initial troponin 122. BNP 9,616. I reviewed her prior labs. She has had previously higher troponins. Her BNP levels typically in the thousands and has been much higher than today. Most recent echocardiogram in December showed an EF of 35 to 40%. Labs: Laboratory Results - last 24 hr 02/09/25 12:23 WBC 9.4 RBC 4.22 Hgb 11.5 L Hct 37.9 MCV 89.8 MCH 27.3 MCHC 30.3 L RDW Std Deviation 51.3 H RDW Coeff of Vijay 15.8 H Plt Count TNP MPV 12.0 Immature Gran % (Auto) 0.800 Neut % (Auto) 86.9 H Lymph % (Auto) 7.3 L Worth % (Auto) 4.5 Eos % (Auto) 0.1 Baso % (Auto) 0.4 Absolute Neuts (auto) 8.2 H Absolute Lymphs (auto) 0.69 L Nucleated RBC % 0.6 Platelet Estimate ADEQUATE Sodium 140 Potassium 4.3 Chloride 98 Carbon Dioxide 29.9 Anion Gap 12 BUN 23 H Creatinine 1.16 Estim Creat Clear Calc 37.42 L Est GFR (MDRD) Non-Af 47 L BUN/Creatinine Ratio 20.2 H Glucose 173 H Calcium 10.2 Troponin T High Sens 122 H* D NT pro BNP II 9616 H Radiography Chest X-Ray - ED: 2 View, Read by ED Physician, Read by Radiologist, Normal, Lungs, Mediastinum, Bony Structures, No Acute Disease, Chronic Changes and Cardiomegaly Diagnostic Testing: Clinical Impression(s) from Imaging Studies Chest X-Ray 02/09/25 12:18 IMPRESSION: Cardiomegaly. Mild degree of bibasilar linear atelectasis. Reading Location: [facility] Chest x-ray, 2 views, interpreted by myself and radiologist. AP and lateral. She has cardiomegaly. Chronic changes. Atelectasis. No pneumonia. No effusions. Rhythm Strip Rhythm Strip: Sinus Rhythm Rate: 93 Ectopy: None EKG Initial EKG: Attestation: I personally reviewed and interpreted this EKG as follows: Interpretation: Sinus Rhythm and No Acute Injury Pattern Comments: Normal sinus rhythm rate of 93 no acute signs IN or ischemia. Patient does have inverted T waves in V4 5 and 6 slight change from prior EKG from February 04. Prior EKG tracings: available for review Prior: Changed Discharge Plan Dx/Rx/DC Orders Clinical Impression: Acute dyspnea, Elevated troponin, Hypoxia, COPD exacerbation, History of diabetes mellitus Disposition Disposition: Acute Care Hospital [facility] What to do if you have Problems For any increased pain, shortness of breath, bleeding, nausea or vomiting, chestpain, or any unexpected problems, contact your Primary Care Provider. Call [facility] ([phone]) or report to the closest Emergency Room. Call 911 if necessary. 02/09/25 0781 <Electronically signed by Jeremiah Corrales MD> Cosigner Signature (if applicable): CC: Dr. Ramone Smiley MD ~ Signed [facility] Work Phone: 1(552) 935-295406-12-2025 Radiology Diagnostic study [facility]06-09-2025 Discharge summary Author Lucio Borden [facility] Note Date/Time February 06, 2025 2:01p [facility] Medical Records Department [address] [place] [address] Instructions for Home/Discharge Instructions 02/06/25 1351 MR#: [id number] Acct: [id number] Name: OLGA DONALDSON Rep #:[id number] : 1945 80 From: Lucio Borden DO PCP: Dr. Ramone Smiley MD Status:ADM IN Discharge Instructions Diet Discharge Diet: 1800 Calorie Control Diet DC O2, CPAP, BIPAP needs Home O2 Discharge instructions: No Dressing / Incision Discharge Activity: Return to Normal Activity Weight Bearing Status: Full weight bearing Follow Up Care Test Results: Test results from this visit will be discussed in further detail at your follow- up appointment, if applicable. Discharge Plan Admission Admit Date/Time: 02/04/25 10:52 Primary Reason for Your Visit: Exacerbation of COPD Attending Provider: Lucio Borden Primary Care Provider: Ramone Smiley Discharge Orders/Prescriptions Prescriptions: New ipratropium-albuterol 0.5 mg-3 mg(2.5 mg base)/3 mL Solution For Nebulization 3 ml inhalation Q6H.RT Qty: 120 0RF prednisone 10 mg tablet 10 mg PO BID Qty: 20 0RF furosemide [Lasix] 20 mg tablet 60 mg PO BID Qty: 180 0RF Continued Januvia 50 mg tablet 50 [...] 1 drp EACH EYE DAILY potassium chloride [K-Tab] 20 mEq tablet extended release 20 meq PO BID diltiazem HCl 180 mg capsule,ext.rel 24h degradable [...] aerosol inhaler 2 inh inhalation BID Discontinued furosemide 40 mg Tablet 40 mg PO BIDLX Qty: 60 2RF Referrals / Follow Up: Ramone Smiley MD [Primary Care Provider] - In 1 Week Disposition Disposition (needs filled in before D/C Order can be placed): Home, Self Care 02/06/25 1401<Electronically signed by Lucio Borden DO>Lucio Borden DO CC: Dr. Ramone Smiley MD ~ Signed [facility] Work Phone: 1(647) 563-980406-09-2025 [facility]06-08-2025 Progress note Author Lucio Borden [facility] Note Date/Time February 05, 2025 2:48p m [facility] Medical Records Department [address] [place] [address] Progress Note - Hospitalist 02/05/25 1442 MR#: [id number] Acct: [id number] Name: OLGA DONALDSON Rep #:[id number] : 1945 80 From: Lucio Borden DO PCP: Dr. Ramone Smiley MD Status:ADM IN Location: [place] [address] Subjective Subjective Patient was seen and examined today, she states she feels much better today. Patient is currently on room air. Objective Data Objective Data Vital Signs: Vital Signs Temp Pulse Resp BP Pulse Ox O2 Del Method O2 Flow Rate 97.3 F L 88 14 121/56 H 100 Room Air 3 02/05/25 10:09 02/05/25 10:16 02/05/25 10:09 02/05/25 10:09 02/05/25 10:09 02/05/25 10:09 02/05/25 07:33 Oxygen Flow Rate (L/min) 3 Oxygen Delivery Method Room Air Weight: 71.214 kg Body Mass Index (BMI) 27.8 Intake & Output: Intake and Output for Last 24 Hours 02/03/25 02/04/25 02/05/25 23:59 23:59 23:59 Intake Total 240 / 360 360 / 360 Balance 240 / 360 360 / 360 Lab / Micro Data 02/04/25 06:50 02/05/25 04:37 Labs: Laboratory Results - last 24 hr 02/04/25 17:32: POC Glucose 240 H 02/04/25 21:29: POC Glucose 179 H 02/05/25 04:37: Sodium 135, Potassium 4.2, Chloride 94 L, Carbon Dioxide 26.4, Anion Gap 15, BUN 17, Creatinine 1.06, Estim Creat Clear Calc 39.38 L, Est GFR (MDRD) Non-Af 53 L, BUN/Creatinine Ratio 16.1, Glucose 272 H, Calcium 9.1 02/05/25 07:50: POC Glucose 238 H 02/05/25 11:26: POC Glucose 296 H Rhythm Strip Rhythm Strip: Sinus Rhythm Rate: 90 Ectopy: None Physical Exam Const alert, oriented x3 and no apparent distress General Appearance: cooperative, well kempt and well developed Orientation / Consciousness: awake, oriented to person, oriented to place and oriented to time HEENT normocephalic, head/scalp atraumatic and moist oral mucous membranes Eyes PERRL, EOMs intact bilaterally and conjunctivae normal Neck supple, no JVD, thyroid normal and no carotid bruits General: trachea midline Resp normal respiratory effort, no retractions and no use of accessory muscles Resp Narrative: Mild inspiratory rales at the left base is noted Auscultation: rales left base; Negative for rhonchi or wheezes Cardio regular rate, regular rhythm, S1 normal heart sound, S2 normal heart sound, no murmurs, no rub and no gallops GI normal to inspection, nondistended, normoactive bowel sounds, soft to palpation,non-tender and non-distended Extremity normal to inspection and no clubbing, cyanosis or edema Skin no rashes or lesions noted General Skin Exam: no breakdown Neuro oriented x3, CN's II-XII intact bilaterally, moves all extremities, no focal motor deficits and no sensory deficits noted Sensorium / Orientation: awake and alert Speech: speech normal Psych affect normal Assessment & Plan Assessment/Plan (1) COPD with exacerbation: PLAN: Plan 1. Exacerbation of COPD-patient will remain on aerosol treatments and IV Solu- Medrol, pulse ox will be monitored #2 acute exacerbation of congestive heart failure with reduced ejection fraction-patient remains on IV Lasix #3 demand ischemia-I do not believe the patient has had an IN #4 type 2 diabetes-blood sugars will be monitored, sliding scale insulin will beadministered as well as basal insulin and insulin with meals #5 hyperlipidemia-patient is on Pravachol #6 ischemic cardiomyopathy-patient will remain on her current medication Total clinical time spent by myself addressing the patient's medical issues, reviewing all of her data, and collaborating with patient's care team: 35 minutes Charges/Coding Visit Charges Inpatient E&M: 04758 Subs Hosp L2 02/05/25 5744 <Electronically signed by Lucio Borden DO> Cosigner Signature (if applicable): CC: ~ Signed [facility] Work Phone: 1(128) 578-558806-07-2025 Discharge summary Author Aj Holley [facility] Note Date/Time February 04, 2025 10:27 am [facility] Medical Records Department [address] [place] [address] Emergency Department Summary 02/04/25 MR#: [id number] Acct: [id number] Name: OLGA DONALDSON Rep #:[id number] : 1945 80 From: Aj Holley MD PCP: Dr. Ramoen Smiley MD Status:REG ER Location: ED HPI History of Present Illness Chief Complaint: Shortness of Breath Informant: patient and EMS Narrative Narrative: 80-year-old female states that she has been short of breath this morning and since she fell off the couch that she was sleeping on. Feels like her COPD. She has a history of congestive heart failure and COPD on no home oxygen, she was very short of breath, she had an albuterol inhaler that she tried and only had a little bit of relief from so she called 911 and they gave her duo nebulizer which really helped a lot. Prior to that they detected her on room air at 81%. She denies any chest discomfort, cough, or changes in leg edema this morning. She denies injuring her chest or ribs or anything else when she fell off of the couch, and has no pain. [facility] Medical History Elevated troponin Coronary artery disease Aortic stenosis Hypertension Obesity (BMI 30.0-34.9) Lactic acidosis Fracture of hip, left, closed Paronychia of left index finger Vaginal cyst Anxiety Depression Irregular heart beat Multiple thyroid nodules Foraminal stenosis of lumbar region Lumbar spinal stenosis Diabetic retinopathy Colon polyp Thyroid goiter Hyperlipidemia Hypokalemia Microcytic anemia Neurogenic bladder Hypophosphatemia Hypercalcemia Former smoker UTI (urinary tract infection) Iron deficiency anemia Hyponatremia Urine retention Chronic renal failure, stage [...] tablet 81 mg PO DAILY HERT HEAL 01/21/16 01/15/25 History magnesium oxide 400 mg (241.3 mg 400 mg PO BID SUPPLEM ENT 08/16/18 01/15/25 History magnesium) tablet metoprolol tartrate 25 mg tablet 25 mg PO BID BLOOD SD ESSURE 08/16/18 01/15/25 History pantoprazole 40 mg [...] BIDLX #60 tabs 12/30 03/24 Unknown Rx potassium chloride 20 mEq 20 [...] Time adhesive tape (tape) Allergy NEEDS Verified 02/04/25 06:21 FOLLOW-UP amoxicillin Allergy YEAST Verified 02/04/25 06:21 INFECTION cephalexin monohydrate (From Allergy Rash Verified 02/04/25 06:21 Keflex) clopidogrel bisulfate (From Allergy Other Verified 02/04/25 06:21 Plavix) Family History Daughter Breast cancer Father Hypertension Sister Cancer Kidney disease Mother Pancreatic cancer Surgical History History of left hip hemiarthroplasty S/P fine needle aspiration (~10/2020) H/O dilation and curettage (~07/10/20) History of Achilles tendon repair Retinopathy History of lumpectomy of left breast Social History (Reviewed 01/31/25 @ 16:15 by Whitney Cao ADVERTISING SPACE CLERK, ADVERTISING SPACE CLERK-C) household members: spouse Smoking Status: Former smoker alcohol intake: never substance use type: does not use caffeine: Yes what type of physical activity do you participate in: none seatbelt use: always do you feel safe at home: Yes additional social history: [employer]- retired ROS ROS ED Constitutional Constitutional ED: Denies chills or fever(s) Eyes Eyes: Denies change in vision or diplopia ENT ENT ED: Denies rhinorrhea or sore throat Cardiovascular Cardiovascular: Denies chest pain, orthopnea, palpitations or paroxysmal nocturnal dyspnea Respiratory/Chest Respiratory/Chest: Reports dyspnea; Denies cough, orthopnea or paroxysmal nocturnal dyspnea Gastrointestinal Gastrointestinal: Denies abdominal pain, diarrhea, nausea or vomiting Genitourinary Genitourinary ED: Denies dysuria or hematuria Musculoskeletal Musculoskeletal: Denies back pain or neck pain Integumentary Denies abscess or rash Neurologic Neurologic: Denies headache(s), paresthesias or weakness Psychiatric Psychiatric: Denies suicidal thoughts EXAM Physical Exam Const Vital Signs: 02/04/25 06:20 02/04/25 06:20 02/04/25 06:57 Temperature 98.8 F Temperature Source Oral Pulse Rate 97 Respiratory Rate 22 H Respiratory Effort Respiratory Pattern Blood Pressure 148/70 H Blood Pressure Mean 96 Pulse Ox 81 98 94 Oxygen Delivery Method Room Air Nasal Cannula Nasal Cannula Oxygen Flow Rate (L/min) 4 4 02/04/25 06:57 02/04/25 07:06 Temperature Temperature Source Pulse Rate 94 Respiratory Rate 28 H Respiratory Effort Short of Breath Respiratory Pattern Tachypnea Blood Pressure Blood Pressure Mean Pulse Ox Oxygen Delivery Method Oxygen Flow Rate (L/min) Positive well nourished and well developed Constitutional Narrative: Conversive in full sentences General Appearance ED: well developed and NAD HEENT Reports moist mucous membranes normocephalic and atraumatic Eyes PERRL and EOMs intact bilaterally Neck full ROM, supple and no JVD Resp normal respiratory effort Resp Narrative: Slight end expiratory wheezes otherwise diminished throughout but symmetric Cardio regular rate and regular rhythm Cardio Narrative: Faint heart sounds GI non-tender and non-distended Auscultation: normoactive bowel sounds Palpation: soft Back/Spine no CVA tenderness General Back: other FROM Extremity normal to inspection General Extremety ED: Yes edema; Negative for pulses abnormal or tenderness General Extremity: edema bilateral lower extremity Details: trace; Negative for pulses abnormal Neuro oriented x3, CN's II-XII intact bilaterally and no sensory deficits noted Sensorium / Orientation: awake and alert Motor Exam: strength 5/5 throughout Psych mental status grossly normal Skin no rashes or lesions noted and no wounds MDM MDM MDM Narrative Medical decision making narrative: Patient seems to be in no distress and breathing much better now after the DuoNeb that EMS gave her. Because she was hypoxic and was just here inpatient 1week ago for a mixture of what seems to be COPD and CHF, I obtained more of a workup rather than just a chest x-ray. Her EKG shows some nonspecific lateral and inferior ST-T wave abnormalities but these are unchanged and similar compared with her prior. She was seen just prior cystic change, she currently is over an x-ray getting her chest x-ray. She had a nebulizer treatment. Upon return, nursing is to take her off of her oxygen, see if her hypoxemia is resolved. If she does not have a continuing oxygen requirement, has no pneumothorax or pneumonia in the rest of her labs other than the CBC which I have reviewed look okay, I would support discharge home and outpatient follow-up; reevaluation of the patient and evaluation of these other test has been checked out to the a.m. ED physician. History & Record Review Additional record(s) reviewed:: Prior ED visit Lab Data Attestation: I reviewed the patient's lab results. Labs: Laboratory Results - last 24 hr 02/04/25 06:50 WBC 11.2 H RBC 3.84 L Hgb 10.7 L Hct 34.1 L MCV 88.8 MCH 27.9 MCHC 31.4 L RDW Std Deviation 51.4 H RDW Coeff of Vijay 15.9 H Plt Count 185 MPV 11.3 Immature Gran % (Auto) 0.400 Neut % (Auto) 75.4 H Lymph % (Auto) 15.7 L Worth % (Auto) 6.6 Eos % (Auto) 1.7 Baso % (Auto) 0.2 Absolute Neuts (auto) 8.4 H Absolute Lymphs (auto) 1.75 Nucleated RBC % 0 Rhythm Strip Rhythm Strip: Sinus Rhythm Rate: 90 Ectopy: None EKG Initial EKG: Attestation: I personally reviewed and interpreted this EKG as follows: Interpretation: Sinus Rhythm, No Acute Injury Pattern and Non-Specific ST Changes (Lateral precordial and inferior leads) Prior EKG tracings: available for review Prior: Unchanged Discharge Plan Triage Chief Complaint: Shortness of Breath ED Provider: Aj Holley Dx/Rx/DC Orders Prescriptions: No Action Januvia 50 [...] PO BREAKFAST 5 Days Qty: 10 0RF Entresto 24-26 mg Tablet 1 tab [...] MD [Primary Care Provider] - Print Language: Hungarian What to do if you have Problems For any increased pain, shortness of breath, bleeding, nausea or vomiting, chestpain, or any unexpected problems, contact your Primary Care Provider. Call [facility] ([phone]) or report to the closest Emergency Room. Call 911 if necessary. 02/04/25 0719 <Electronically signed by Aj Holley MD> Cosigner Signature (if applicable): CC: Dr. Ramone Smiley MD ~ Signed ADDENDUM by Dr. Kwaku Marcial MD on 02/04/25 at 0820 2 view chest x-ray was independent reviewed interpreted by me. Patient has somechronic changes noted. The heart size and silhouette are unremarkable. There is interstitial thickening noted probably due to atelectasis lower lung white. There is no evidence of pneumothorax, effusion or infiltrate. There is degenerative changes noted of the thoracic spine. CBC reveals H&H at 10.7 and 34.1. H&H on 529 was 11.8 and 37.9. White count slightly elevated Greg 0.2 thousand. There is slight shift with no bandemia. Electrolyte panel reveals an estimated GFR of 48. Creatinine is 1.14. Glucose is slightly elevated 132 with a normal CO2 anion gap. Troponin is elevated at 139. If patient did not receive aspirin we will order aspirin. Patient's case was turned over to me at change of shift. Patient brought to ER for shortness of breath with pulse ox of 81% by EMS. Person is not on home oxygen. Recent admission for cold/CHF pneumonia. Since patient had abrupt onset of shortness of breath no chest discomfort need to consider pulmonary embolus since the chest x-ray is unremarkable and the elevated troponin may be due to right heart strain. 02/04/25 0820<Electronically signed by Kwaku Marcial MD> Cosigner Signature (if applicable): cc: Dr. Ramone Smiley MD ~* Signed ADDENDUM by Dr. Kwaku Marcial MD on 02/04/25 at 1027 CTA reveals atelectasis right and left lower lobe. There is asymmetric nodules noted of the thyroid. There is no evidence of pneumonia, pulmonary embolus or CHF. With an elevated proBNP and troponin and the fact the patient was hypoxic and PE has been ruled out need to evaluate for cardiac etiology. Will contact hospitalist for admission. She also has acute on chronic anemia. BUN to creatinine ratio is not elevated to suggest a GI bleed. 02/04/25 1027<Electronically signed by Kwaku Marcial MD> Cosigner Signature (if applicable): cc: Dr. Ramone Smiley MD ~* Signed [facility] Work Phone: 1(643) 858-196706-07-2025 Radiology Diagnostic study [facility]06-07-2025 Radiology Diagnostic study [facility]05-29-2025 Radiology Diagnostic study [facility] 01-24-2025 [facility]05-26-2025 Progress note Author Becca Silverman [facility] Note Date/Time January 23, 2025 3:40p m [facility] Medical Records Department [address] [place] [address] Progress Note - Cardiology 01/23/25 1528 MR#: [id number] Acct: [id number] Name: OLGA DONALDSON Rep #:[id number] : 1945 80 From: Becca Silverman MD PCP: Dr. Ramone Smiley MD Status:ADM IN Location: [place] [address] Subjective Subjective Seen and evaluated at bedside [...] (Auto) 90.8 H, Lymph % (Auto) 6.2L, Worth % (Auto) 2.7, Eos % (Auto) 0.0, [...] (Auto)90.8 H, Lymph % (Auto) 6.2 L, Worth % (Auto) 2.7, Eos % (Auto) 0.0, [...] up an appointment to be seen by metal framer as an outpatient and discussed further plan possible Lexiscan sestamibi and based on results of Lexiscan sestamibi to consider further evaluation. To minimize risk of contrast-induced nephropathy. Becca Silverman MD,[facility] 01/23/25 4200 <Electronically signed by Becca Silverman MD> Cosigner Signature (if applicable): CC: ~ Signed [facility] Work Phone: 1([phone]) 392-111305-26-2025 Progress note [facility] Note Date/Time January 23, 2025 2:43p m [facility] Medical Records Department [address] [place] [address] Progress Note 01/23/25 1037 MR#: [id number] Acct: [id number] Name: OLGA DONALDSON Rep #:[id number] : 1945 80 From: Melba Hartmann MD PCP: Dr. Ramone Smiley MD Status:ADM IN Location: [place] [address] Subjective Subjective Patient seen and examined. She [...] 08:57 01/23/25 08:57 01/22/25 11:00 FiO2 24 05/25/25 02:00 Oxygen Flow Rate (L/min) 2 Oxygen [...] (Auto) 90.8 H, Lymph % (Auto) 6.2L, Worth % (Auto) 2.7, Eos % (Auto) 0.0, [...] These were held * on ISS. Accuchecks [facility]. * on gabapentin * #History of left sided breast cancer: s/p lumpectomy in 2003. #History of multinodular goiter. stable #Glaucoma: on netarsudil-latanoprost eye drops. #History of neurogenic bladder: stable #GERD: On PPI #DVT prophylaxis: Heparin Charges/Coding Visit Charges Inpatient E&M: 13833 Subs Hosp L2 01/23/25 7701 <Electronically signed by Melba Hartmann MD> Melba Hartmann MD Cosigner Signature (if applicable): CC: ~ Signed [facility] Work Phone: 1(155) 518-749205-25-2025 Progress note Author Melba Mikhailjanene [facility] Note Date/Time January 22, 2025 2:00p m [facility] Medical Records Department [address] [place] [address] Progress Note 01/22/25 0949 MR#: [id number] Acct: [id number] Name: OLGA DONALDSON Rep #:[id number] : 1945 80 From: Melba Hartmann MD PCP: Dr. Ramone Smiley MD Status:ADM IN Location: [place] [address] 1 Subjective Subjective Patient seen and examined [...] 91.4 H, Lymph % (Auto) 5.7 L, Worth % (Auto) 2.4, Eos % (Auto) 0.0, [...] to PCU Charges/Coding Visit Charges Inpatient E&M: 38210 Subs Hosp L2 01/22/25 1242 <Electronically signed by Melba Hartmann MD> Melba Hartmann MD Cosigner Signature (if applicable): CC: ~ Signed ADDENDUM by Dr. Melba Hartmann MD on 01/22/25 at 1400 Addendum 1:30pm Patient's son Ursula Lees Jr called on the phone ([phone]) and updated about his mother's condition. 01/22/25 1400 <Electronically signed by Melba vivas MD> Date _ Melba Hartmann MD Cosigner Signature (if applicable): Date cc: ~* Signed [facility] Work Phone: 1(788) 224-181805-24-2025 Progress note Author Melba Hartmann [facility] Note Date/Time January 21, 2025 2:07p [facility] Medical Records Department [address] [place] [address] Progress Note 01/21/25 1039 MR#: [id number] Acct: [id number] Name: OLGA DONALDSON Rep #:[id number] : 1945 80 From: Melba Hartmann MD [...] 88.4 H, Lymph % (Auto) 7.7 L, Worth % (Auto) 3.5, Eos % (Auto) 0.0, [...] H, Calcium 9.8, [place] [address] H 01/21/25 08:06: POC Glucose 202 H [...] To/Read Back Yes Blood Gas Notified [facility] Notified Time 16:55:40 Radiography Diagnostic [...] noted. Cardiomegaly. No pericardial effusion. Reading Location: [facility] Echocardiogram 01/20/25 04:12 Interpretation Summary Mildly dilated left ventricle. The estimated ejection fraction is 35-40 %. There is evidence of diastolic dysfunction. There is moderate global hypokinesis of the left ventricle. Trivial mitral valve insufficiency. Mild aortic stenosis. Trivial aortic valve insufficiency. Ordering Physician: Sandeep Carlton Referring Physician: Ramone Smiley Performed By: Margot Cleary, TESSIECS, RVT Chest X-Ray 01/21/25 05:55 IMPRESSION: New appearing [id number] ill-defined perihilar opacity at the left upper lobe may represent developing infiltrate or less likely an asymmetric edema pattern. Bilateral medial retrocardiac lower lobe streaky opacities not significantly changed. No pleural effusions identified. Reading Location: [facility] Physical Exam Const alert, oriented x3, no [...] prophylaxis: Heparin Charges/Coding Visit Charges Inpatient E&M: 87541 Subs Hosp L2 01/21/25 1407 <Electronically signed by Melba Hartmann MD> Melba Hartmann MD Cosigner Signature (if applicable): CC: ~ Signed [facility] Work Phone: 1(632) 710-191205-24-2025 Radiology Diagnostic study [facility]05-23-2025 Progress note Author Lucio [facility] Note Date/Time January 20, 2025 4:58p m [facility] Medical Records Department [address] [place] [address] Progress Note - Hospitalist 01/20/25 1657 MR#: [id number] Acct: [id number] Name: ANIKAOLGA Rep #:[id number] : 1945 80 From: Lucio Borden DO PCP: Dr. Ramone Smiley MD Status:ADM IN Location: [place] [address] Hospitalist Note Patient continues to have respiratory distress on PCU, she is intolerant of BiPAP-she acts very anxious. I have ordered an arterial blood gas on the patient and for closer monitoring I have decided to move her to the ICU at this time. Patient is a full code and would want intubated if necessary. 01/20/251657 <Electronically signed by Lucio Borden DO> Cosigner Signature (if applicable): CC: ~ Signed [facility] Work Phone: 1(539) 459-518305-23-2025 Progress note Author Lucio [facility] Note Date/Time January 20, 2025 11:20 am [facility] Medical Records Department [address] [place] [address] Progress Note - Hospitalist 01/20/25 1119 MR#: [id number] Acct: [id number] Name: OLGA DONALDSON Rep #:[id number] : 1945 80 From: Lucio Borden DO PCP: Dr. Ramone Smiley MD Status:ADM IN Location: [place] [address] Hospitalist Note Patient was seen and examined today, made the decision to change the patient to Airvo, patient was admitted for suspected right lower lobe pneumonia and exacerbation of COPD, she remained on aerosol treatments, IV Solu-Medrol, and IVlevofloxacin. 01/20/25 1120 <Electronically signed by Lucio Borden DO> Cosigner Signature (if applicable): CC: ~ Signed [facility] Work Phone: 1(912) 913-555105-23-2025 History and physical note Author Sandeep Marie [facility] Note Date/Time January 20, 2025 6:06a m [facility] Medical Records Department [address] [place] [address] H&P Exam - Hospitalist 01/20/25 0241 MR#: [id number] Acct: [id number] Name: OLGA DONALDSON Rep #:[id number] : 1945 80 From: Sandeep Dukes DO PCP: Dr. Ramone Smiley MD Status:ADM IN Location: [place] [address] HPI - General General Date of Admission: 01/20/25 Date of [...] stenosis of lumbar region who presents to [facility] ER complaining of shortness of breath. [...] to extend beyond 2 midnights. [facility] Medical History Fracture of hip, left, [...] mg tablet 25 mg PO BID BLOOD SD ESSURE 08/16/18 01/15/25 History pantoprazole 40 mg [...] Neut % (Auto) 58.4, Lymph % (Auto) 32.0,Worth % (Auto) 7.7, Eos % (Auto) 0.8, [...] Clarity Clear, Urine pH 6.0, Ur Specific Sheldon 1.010, Urine Protein 100 H, Urine Glucose [...] noted. Cardiomegaly. No pericardial effusion. Reading Location: [id number] Assessment & Plan Assessment/Plan (1) Pneumonia: QUALIFIERS: [...] twice daily. Give acetaminophen as needed for [id number] (level 1-5/10) pain or fever. Give morphine [...] responsive hypotension Charges/Coding Visit Charges Inpatient E&M: 96733 Init Hosp L3 01/20/25 0606 <Electronically signed by Sandeep Carlton DO> Cosigner Signature (if applicable): CC: Dr. Sandeep Carlton DO; Dr. Ramone Smiley MD~ Signed [facility] Work Phone: 1(883) 680-456405-23-2025 Evaluation note* Diagnosis Onset Date Resolution Status Admit Date Acute hypoxemic respiratory failure acute January 20, 2025 3 :32am Acute hypoxic on chronic hypercapnic respiratory failure acute January 20, 2025 3:32am Elevated troponin acute December 3:32am Lactic acidosis acute January 20, 2025 3:32am Leukocytosis acute January 20 3:32am Obesity (BMI 30.0-34.9) acute 2024 3:32am Pneumonia acute January 20, 2025 3:32am Aortic stenosis chronic January 20, 2025 3:32am CHF exacerbation chronic December 3:32am COPD exacerbation chronic December 3:32am Coronary artery disease chronic 2024 3:32am Hypertension chronic January 20 3:32am [facility] Work Phone: [phone]) 174-890905-23-2025 Evaluation note* Diagnosis Onset Date Resolution Status Admit Date Aortic stenosis acute January 20, 2025 3:32am Coronary artery disease acute [facility] 2024 3:32am Elevated troponin acute December 3:32am Hypertension chronic January 20 3:32am Acute hypoxemic respiratory failure resolved January 20, 2025 3 :32am Acute hypoxic on chronic hypercapnic respiratory failure resolved January 20, 2025 3:32am CHF exacerbation resolved December 3:32am COPD exacerbation resolved December 3:32am Leukocytosis resolved January 20 3:32am Pneumonia resolved January 20, 2025 3:32am Lactic acidosis inactive January 20, 2025 3:32am Obesity (BMI 30.0-34.9) inactive M ay 2024 3:32am Aortic stenosis acute January 31, 2025 1:42pm Coronary artery disease acute J 2024 1:42pm Hyperlipidemia chronic January 31, 2025 1:42pm Hypertension chronic January 31 1:42pm CHF (congestive heart failure) inact chandan January 31, 2025 1:42pm Acute hypoxemic respiratory failure acute February 04, 2025 1 0:52am Anemia acute February 04, 2025 10:52am Elevated brain natriuretic peptide (BNP) level acute February 04 10:52am Elevated troponin acute January 10:52am History of COPD chronic February 04, 2025 10:52am Hyperlipidemia chronic February 04, 2025 10:52am Hypertension chronic February 04 10:52am Type 2 diabetes mellitus chronic February 04, 2025 10:52am [facility] Work Phone: 1([phone]) 595-745105-23-2025 Evaluation note* Diagnosis Onset Date Resolution Status Admit Date Aortic stenosis acute January 20, 2025 3:32am Coronary artery disease acute M ay 2024 3:32am Elevated troponin acute December 3:32am Hypertension chronic January 20 3:32am Acute hypoxemic respiratory failure resolved January 20, 2025 3 :32am Acute hypoxic on chronic hypercapnic respiratory failure resolved January 20, 2025 3:32am CHF exacerbation resolved December 3:32am COPD exacerbation resolved December 3:32am Leukocytosis resolved January 20 3:32am Pneumonia resolved January 20, 2025 3:32am Lactic acidosis inactive January 20, 2025 3:32am Obesity (BMI 30.0-34.9) inactive M ay 2024 3:32am Aortic stenosis acute January 31, 2025 1:42pm Coronary artery disease acute J une 2024 1:42pm Hyperlipidemia chronic January 31, 2025 1:42pm Hypertension chronic January 31 1:42pm CHF (congestive heart failure) inact chandan January 31, 2025 1:42pm Acute hypoxemic respiratory failure acute February 04, 2025 1 0:52am Anemia acute February 04, 2025 10:52am Elevated brain natriuretic peptide (BNP) level acute February 04 10:52am Elevated troponin acute January 10:52am COPD with exacerbation chronic 2024 10:52am History of COPD chronic February 04, 2025 10:52am Hyperlipidemia chronic February 04, 2025 10:52am Hypertension chronic February 04 10:52am Type 2 diabetes mellitus chronic February 04, 2025 10:52am [facility] Work Phone: 1([phone]) 584-490105-23-2025 Evaluation note* Diagnosis Onset Date Resolution Status Admit Date Aortic stenosis acute January 20, 2025 3:32am Coronary artery disease acute M 2024 3:32am Elevated troponin acute December 3:32am Acute hypoxemic respiratory failure resolved January 20, 2025 3 :32am Acute hypoxic on chronic hypercapnic respiratory failure resolved January 20, 2025 3:32am CHF exacerbation resolved December 3:32am COPD exacerbation resolved December 3:32am Leukocytosis resolved January 20 3:32am Pneumonia resolved January 20, 2025 3:32am Hypertension inactive January 20 3:32am Lactic acidosis inactive January 20, 2025 3:32am Obesity (BMI 30.0-34.9) inactive M 2024 3:32am Aortic stenosis acute January 31, 2025 1:42pm Coronary artery disease acute J une 2024 1:42pm CHF (congestive heart failure) inact chandan January 31, 2025 1:42pm Hyperlipidemia inactive January 31, 2025 1:42pm Hypertension inactive January 31 1:42pm Acute hypoxemic respiratory failure inactive February 04, 2025 1 0:52am Anemia inactive February 04, 2025 10:52am COPD with exacerbation inactive 2024 10:52am Elevated brain natriuretic peptide (BNP) level inactive February 04 10:52am Elevated troponin inactive January 10:52am History of COPD inactive February 04, 2025 10:52am Hyperlipidemia inactive February 04, 2025 10:52am Hypertension inactive February 04 10:52am Type 2 diabetes mellitus inactive February 04, 2025 10:52am Acute dyspnea acute February 09, 2025 3:00pm Elevated troponin acute February 092024 3:00pm History of diabetes mellitus acute February 09, 2025 3:00pm Hypoxia acute February 09 3:00pm COPD exacerbation chronic February 092024 3:00pm History of acute heart failure remov ed February 09, 2025 3:00pm [facility] Work Phone: 1([phone]) 814-640105-23-2025 Evaluation note* Diagnosis Onset Date Resolution Status Admit Date Aortic stenosis acute January 20, 2025 3:32am Coronary artery disease acute M ay 2024 3:32am Elevated troponin acute December 3:32am Hypertension chronic January 20 3:32am Acute hypoxemic respiratory failure resolved January 20, 2025 3 :32am Acute hypoxic on chronic hypercapnic respiratory failure resolved January 20, 2025 3:32am CHF exacerbation resolved December 3:32am COPD exacerbation resolved December 3:32am Leukocytosis resolved January 20 3:32am Pneumonia resolved January 20, 2025 3:32am Lactic acidosis inactive January 20, 2025 3:32am Obesity (BMI 30.0-34.9) inactive M ay 2024 3:32am Aortic stenosis acute January 31, 2025 1:42pm CHF (congestive heart failure) acute January 31, 2025 1:42pm Coronary artery disease acute J 2024 1:42pm Hyperlipidemia chronic January 31, 2025 1:42pm Hypertension chronic January 31 1:42pm [facility] Work Phone: 1(988) 236-576805-23-2025 Evaluation note* Diagnosis Onset Date Resolution Status Admit Date Acute hypoxemic respiratory failure resolved January 20, 2025 3 :32am Acute hypoxic on chronic hypercapnic respiratory failure resolved January 20, 2025 3:32am CHF exacerbation resolved December 3:32am COPD exacerbation resolved December 3:32am Leukocytosis resolved January 20 3:32am Pneumonia resolved January 20, 2025 3:32am Aortic stenosis inactive January 20, 2025 3:32am Coronary artery disease inactive M ay 2024 3:32am Elevated troponin inactive December 3:32am Hypertension inactive January 20 3:32am Lactic acidosis inactive January 20, 2025 3:32am Obesity (BMI 30.0-34.9) inactive M ay 2024 3:32am Aortic stenosis inactive January 31, 2025 1:42pm CHF (congestive heart failure) inact chandan January 31, 2025 1:42pm Coronary artery disease inactive J 2024 1:42pm Hyperlipidemia inactive January 31, 2025 1:42pm Hypertension inactive January 31 1:42pm Acute hypoxemic respiratory failure inactive February 04, 2025 1 0:52am Anemia inactive February 04, 2025 10:52am COPD with exacerbation inactive 2024 10:52am Elevated brain natriuretic peptide (BNP) level inactive February 04 10:52am Elevated troponin inactive January 10:52am History of COPD inactive February 04, 2025 10:52am Hyperlipidemia inactive February 04, 2025 10:52am Hypertension inactive February 04 10:52am Type 2 diabetes mellitus inactive February 04, 2025 10:52am Acute dyspnea inactive February 09, 2025 3:00pm COPD exacerbation inactive February 092024 3:00pm Elevated troponin inactive February 092024 3:00pm History of diabetes mellitus inactiv e February 09, 2025 3:00pm Hypoxia inactive February 09 3:00pm History of acute heart failure remov ed February 09, 2025 3:00pm [facility] Work Phone: 1(748) 381-647705-23-2025 Evaluation note* Diagnosis Onset Date Resolution Status Admit Date Acute hypoxemic respiratory failure resolved January 20, 2025 3 :32am Acute hypoxic on chronic hypercapnic respiratory failure resolved January 20, 2025 3:32am CHF exacerbation resolved December 3:32am COPD exacerbation resolved December 3:32am Leukocytosis resolved January 20 3:32am Pneumonia resolved January 20, 2025 3:32am Aortic stenosis inactive January 20, 2025 3:32am Coronary artery disease inactive M ay 2024 3:32am Elevated troponin inactive December 3:32am Hypertension inactive January 20 3:32am Lactic acidosis inactive January 20, 2025 3:32am Obesity (BMI 30.0-34.9) inactive M ay 2024 3:32am Aortic stenosis inactive January 31, 2025 1:42pm CHF (congestive heart failure) inact chandan January 31, 2025 1:42pm Coronary artery disease inactive J 2024 1:42pm Hyperlipidemia inactive January 31, 2025 1:42pm Hypertension inactive January 31 1:42pm Acute hypoxemic respiratory failure inactive February 04, 2025 1 0:52am Anemia inactive February 04, 2025 10:52am COPD with exacerbation inactive 2024 10:52am Elevated brain natriuretic peptide (BNP) level inactive February 04 10:52am Elevated troponin inactive January 10:52am History of COPD inactive February 04, 2025 10:52am Hyperlipidemia inactive February 04, 2025 10:52am Hypertension inactive February 04 10:52am Type 2 diabetes mellitus inactive February 04, 2025 10:52am Acute dyspnea inactive February 09, 2025 3:00pm COPD exacerbation inactive February 092024 3:00pm Elevated troponin inactive February 092024 3:00pm History of diabetes mellitus inactiv e February 09, 2025 3:00pm Hypoxia inactive February 09 3:00pm History of acute heart failure remov ed February 09, 2025 3:00pm Debility acute February 15 2:01pm Dyspnea acute February 15 2:01pm Generalized weakness inactive February 15, 2025 2:01pm [facility] Work Phone: 1(816) 282-822305-23-2025 Discharge summary Author Jeevan Yoder [facility] Note Date/Time January 20, 2025 2:43a m [facility] Medical Records Department [address] [place] [address] Emergency Department Summary 01/20/25 MR#: [id number] Acct: [id number] Name: OLGA DONALDSON Rep #:[id number] : 1945 80 From: Jeevan Yoder DO [...] has had progressive worsening shortness of breath. [facility] Medical History Fracture of hip, left, [...] mg tablet 25 mg PO BID BLOOD SD ESSURE 08/16/18 01/15/25 History pantoprazole 40 mg [...] % (Auto) 58.4 Lymph % (Auto) 32.0 Worth % (Auto) 7.7 Eos % (Auto) 0.8 [...] Clarity Clear Urine pH 6.0 Ur Specific Sheldon 1.010 Urine Protein 100 H Urine Glucose [...] noted. Cardiomegaly. No pericardial effusion. Reading Location: [id number] Discharge Plan Triage Chief Complaint: Shortness of [...] MD [Primary Care Provider] - Print Language: Hungarian What to do if you have Problems For any increased pain, shortness of breath, bleeding, nausea or vomiting, chestpain, or any unexpected problems, contact your Primary Care Provider. Call [facility] ([phone]) or report to the closest Emergency Room. Call 911 if necessary. 01/20/25 4596 <Electronically signed by Jeevan Yoder DO> Cosigner Signature (if applicable): CC: Dr. Ramone Smiley MD ~ Signed [facility] Work Phone: 1(997) 278-613805-23-2025 Radiology Diagnostic study [facility]05-18-2025 Discharge summary [facility] Medical Records Department [address] [place] [address] Emergency Department Summary 01/15/25 MR#: [id number] Acct: [id number] Name: OLGA DONALDSON Rep #:[id number] : 1945 80 From: Jeevan Yoder DO [...] of the antibiotic that was placed on. [facility] Medical History Fracture of hip, left, closed [...] mg tablet 25 mg PO BID BLOOD SD ESSURE 08/16/18 01/15/25 History pantoprazole 40 mg [...] follow commands and that she was at [facility] the year is 2024 Skin: Warm, [...] 72.7 H Lymph % (Auto) 18.1 L Worth % (Auto) 6.9 Eos % (Auto) 1.6 [...] IMPRESSION: Cardiomegaly with mild congestion. Reading Location: [facility] Discharge Plan Triage Chief Complaint: Shortness [...] with worsening symptoms or concerns. Print Language: Hungarian Disposition Disposition: Home, Self Care What to do if you have Problems For any increased pain, shortness of breath, bleeding, nausea or vomiting, chestpain, or any unexpected problems, contact your Primary Care Provider. Call [facility] ([phone]) or report tothe closest Emergency Room. Call 911 if necessary. 01/15/251844 Cosigner Signature (if applicable): CC: Dr. Ramone Smiley MD ~ Signed [facility]05-18-2025 Radiology Diagnostic study note [facility] Imaging Services [address] [place], [place] [address] Chest PA and Lateral MR#: [id number] Acct: [id number] Name: OLGA DONALDSON Rep #: [id number] : 1945 F 80 From: Kary Darnell MD PCP: Dr. Ramone Smiley MD Status: [facility] ER Study:Chest PA and Lateral Date of Exam: 01/15/25 Exam# [id number] Ordering Dr: Yoly Yoder DO EXAM: XR Chest, 2 Views CLINICAL INDICATION: CHEST PAIN TECHNIQUE: Frontal and lateral views of the chest. COMPARISON: No relevant prior studies available. FINDINGS: LUNGS AND PLEURAL SPACES: See below. HEART: Cardiomegaly with mild congestion. MEDIASTINUM: Unremarkable. Normal mediastinal contour. BONES/JOINTS: Unremarkable. No acute fracture. RAD/Chest PA and Lateral IMPRESSION: Cardiomegaly with mild congestion. Reading Location: [facility] CC: Dr. Ramone Smiley MD; Dr. Jeevan Yoder DO ~ Web Site Admin: Signed [facility]05-18-2025 Discharge summary Author Jeevan Yoder [facility] Note Date/Time January 15, 2025 6:45p m [facility] Medical Records Department [address] [place] [address] Emergency Department Summary 01/15/25 MR#: [id number] Acct: [id number] Name: OLGA DONALDSON Rep #:[id number] : 1945 80 From: Jeevan Yoder DO [...] of the antibiotic that was placed on. [facility] Medical History Fracture of hip, left, closed [...] mg tablet 25 mg PO BID BLOOD SD ESSURE 08/16/18 01/15/25 History pantoprazole 40 mg [...] follow commands and that she was at [facility] the year is 2024 Skin: Warm, [...] 72.7 H Lymph % (Auto) 18.1 L Worth % (Auto) 6.9 Eos % (Auto) 1.6 [...] IMPRESSION: Cardiomegaly with mild congestion. Reading Location: [facility] Discharge Plan Triage Chief Complaint: Shortness of [...] with worsening symptoms or concerns. Print Language: Hungarian Disposition Disposition: Home, Self Care What to do if you have Problems For any increased pain, shortness of breath, bleeding, nausea or vomiting, chestpain, or any unexpected problems, contact your Primary Care Provider. Call [facility] ([phone]) or report to the closest Emergency Room. Call 911 if necessary. 01/15/251844 <Electronically signed by Jeevan Yoder DO> Cosigner Signature (if applicable): CC: Dr. Ramone Smiley MD ~ Signed [facility] Work Phone: 1(966) 227-106805-10-2025 Discharge summary [facility] Medical Records Department [address] [place] [address] Emergency Department Summary 01/07/25 MR#: [id number] Acct: [id number] Name: OLGA DONALDSON Rep #:[id number] : 1945 80 From: Ethan Casanova PCP: [...] mg tablet 25 mg PO BID BLOOD SD ESSURE 08/16/18 08/12/23 History pantoprazole 40 mg [...] DIABETES 08/13/23 08/10/23 [facility] gabapentin 100 mg capsule 100 mg PO [...] 01/15/24 Unknown Rx 0.005 % eye drops ([facility]) azithromycin 250 mg tablet 250 mg PO [...] clinician: N/A This note was generated with [employer] dictation software. It may contain incorrectwords, spelling, [...] % (Auto) 58.0 Lymph % (Auto) 31.8 Worth % (Auto) 7.6 Eos % (Auto) 1.9 [...] IMPRESSION: Cardiomegaly without overt failure. Reading Location: [facility] Discharge Plan Triage Chief Complaint: Shortness of [...] steroids is tomorrow. This was sent to [employer]. Print Language: Hungarian Disposition Disposition: Home, Self Care What to do if you have Problems For any increased pain, shortness of breath, bleeding, nausea or vomiting, chestpain, or any unexpected problems, contact your Primary Care Provider. Call [facility] ([phone]) or report tothe closest Emergency Room. Call 911 if necessary. 01/07/25 1700 Cosigner Signature (if applicable): CC: Dr. Ramone Smiley MD ~ Signed [facility]05-10-2025 Radiology Diagnostic study note [facility] Imaging Services [address] [place], [place] [id number] Chest PA and Lateral MR#: [id number] Acct: [id number] Name: OLGA DONALDSON Rep #: [id number] : 1945 F 80 From: Kary Darnell MD PCP: Dr. Ramone Smiley MD Status: PRE ER Study:Chest PA and Lateral Date of Exam: 01/07/25 Exam# [id number] Ordering Dr: Ethan Darnell DO EXAM: XR Chest, 2 Views CLINICAL INDICATION: COUGH TECHNIQUE: Frontal and lateral views of the chest. COMPARISON: No relevant prior studies available. FINDINGS: LUNGS AND PLEURAL SPACES: Unremarkable. No consolidation. No pneumothorax. HEART: Cardiomegaly without overt failure. MEDIASTINUM: Unremarkable. Normal mediastinal contour. BONES/JOINTS: Unremarkable. No acute fracture. RAD/Chest PA and Lateral IMPRESSION: Cardiomegaly without overt failure. Reading Location: [facility] CC: Dr. Ramone Smiley MD; Dr. Ethan Darnell DO ~ Web Site Admin: Signed [facility]05-10-2025 Discharge summary Author Ethan Darnell [facility] Note Date/Time January 07, 2025 5:00p m [facility] Medical Records Department [address] [place] [address] Emergency Department Summary 01/07/25 MR#: [id number] Acct: [id number] Name: OLGA DONALDSON Rep #:[id number] : 1945 80 From: Ethan Casanova PCP: [...] mg tablet 25 mg PO BID BLOOD SD ESSURE 08/16/18 08/12/23 History pantoprazole 40 mg [...] DIABETES 08/13/23 08/10/23 History [facility] gabapentin 100 mg capsule 100 mg PO [...] with a pulse ox for disposition plan. 1654: Viral swabs negative. Patient ambulated 94% on [...] clinician: N/A This note was generated with [employer] dictation software. It may contain incorrectwords, spelling, [...] % (Auto) 58.0 Lymph % (Auto) 31.8 Worth % (Auto) 7.6 Eos % (Auto) 1.9 [...] IMPRESSION: Cardiomegaly without overt failure. Reading Location: [facility] Discharge Plan Triage Chief Complaint: Shortness of Breath ED Provider: Le,Ethan Dx/Rx/DC Orders Clinical Impression: Acute exacerbation of [...] steroids is tomorrow. This was sent to [employer]. Print Language: Hungarian Disposition Disposition: Home, Self Care What to do if you have Problems For any increased pain, shortness of breath, bleeding, nausea or vomiting, chestpain, or any unexpected problems, contact your Primary Care Provider. Call [facility] ([phone]) or report to the closest Emergency Room. Call 911 if necessary. 01/07/25 1700 <Electronically signed by Ethan Casanova> Cosigner Signature (if applicable): CC: Dr. Ramone Smiley MD ~ Signed [facility] Work Phone: 1(336) 793-551705-01-2024 Progress note Author Sunny Bell [facility] December 30, 2023 12:34pm Note Date/Time December 30, 2023 12:35p [facility] Medical Records Department [address] [place] [address] Progress Note - Hospitalist 12/30/23 1228 MR#: [id number] Acct: [id number] Name: OLGA DONALDSON Rep #:[id number] : 1945 78 From: Sunny Blue PCP: Dr. Ramone Smiley MD Status:ADM IN [facility] Reason for Visit Reason for Visit: Diagnoses [...] 23:59 23:59 Intake Total 1732.50 / 1732.50 2002.75 / 2002.75 700 / 700 Output Total [...] % (Auto) 63.9, Lymph % (Auto) 25.3, Worth % (Auto) 8.7, Eos % (Auto) 1.4, [...] Patient is a 78-year-old female who presented [facility] ED on 12/27/2023 with left hip pain after a fall at home. She got up from the couch toself catheter, got her walker turned and then lost balance and fell on her left hip. 1. Acute debility due to left impacted transcervical femoral neck fracture. ? Admit under inpatient status to [facility]. Orthopedics consulted. N.p.o. at midnight. PT/OT/case management [...] cousin over the phone who lives in [facility]. Patient is clinically doing well. Currently has [...] times daily with meals with holding parameters. 5/12: Glucose is better. 127 in BMP. 87 [...] disposition: TBD Charges/Coding Visit Charges Inpatient E&M: 13135 Subs Hosp L2 12/30/23 1231 <Electronically signed by Sunny Bell MD> Cosigner Signature (if applicable): CC: ~ Signed [facility] Work Phone: 1(623) 920-297404-30-2024 Progress note Author Sunny Bell [facility] December 29, 2023 12:47pm Note Date/Time December 29, 2023 9:3 0am [facility] Medical Records Department [address] [place] [address] Progress Note - Hospitalist 12/29/23 0929 MR#: [id number] Acct: [id number] Name: OLGA DONALDSON Rep #:[id number] : 1945 78 From: Sunny Blue PCP: Dr. Ramone Smiley MD Status:ADM IN [facility] Reason for Visit Reason for Visit: Diagnoses [...] (Auto) 81.1 H, Lymph %(Auto) 9.5 L, Worth % (Auto) 8.5, Eos % (Auto) 0.1, [...] Patient is a 78-year-old female who presented [facility] ED on 12/27/2023 with left hip pain after a fall at home. She got up from the couch toself catheter, got her walker turned and then lost balance and fell on her left hip. 1. Acute debility due to left impacted transcervical femoral neck fracture. ? Admit under inpatient status to [facility]. Orthopedics consulted. N.p.o. at midnight. PT/OT/case management [...] cousin over the phone who lives in [facility]. Patient is clinically doing well. Currently has [...] disposition: TBD Charges/Coding Visit Charges Inpatient E&M: 41258 Subs Hosp L2 12/29/23 1247 <Electronically signed by Sunny Bell MD> Cosigner Signature (if applicable): CC: ~ Signed [facility] Work Phone: 1(641) 981-910404-30-2024 Progress note Author Sj Delacruz [facility] December 29, 2023 11:56am Note Date/Time December 29, 2023 11: 56am [facility] Medical Records Department [address] [place] [address] Progress Note - Orthopedic 12/29/23 1152 MR#: [id number] Acct: [id number] Name: OLGA DONALDSON Rep #:[id number] : 1945 78 From: Sj BHATTI PA-C PCP: Dr. Ramone Smiley MD Status:ADM IN Location: MS3 AK684-6 Subjective Subjective Patient sitting at bedside watching [...] (Auto) 81.1 H, Lymph %(Auto) 9.5 L, Worth % (Auto) 8.5, Eos % (Auto) 0.1, [...] Signed: Billy Shirley MD at 14:25 EDT Reading Location ID and State: [facility] / [place] , Service support , Hip X-Ray 12/28/23 14:55 IMPRESSION: Normal [...] can shower 12/31/2023 9. Discharge admit to F when cleared by medicine and approved by insurance 12/29/23 1153 <Electronically signed by Sj BHATTI PA-C> Cosigner Signature (if applicable): CC: ~ Signed [facility] Work Phone: 1(357) 410-845204-29-2024 Consult note Author Gabriel Byrd [facility] December 28, 2023 12:59pm Note Date/Time December 28, 2023 12: 59pm [facility] Medical Records Department [address] [place] [address] Consultation - Orthopedics 12/28/23 1252 MR#: [id number] Acct: [id number] Name: OLGA DONALDSON Rep #:[id number] : 1945 78 From: Gabriel Blue PCP: Dr. Ramone Smiley MD Status:ADM IN Location: [place] [address]-1 HPI Consult Data Date of Consult: 12/28/23 [...] any previous DVTs or PEs. [facility] Medical History Anemia Anxiety Aortic stenosis [...] mg chewable tablet 81 mg PO DAILY [facility] 01/21/16 [History Last Taken 08/12/23] albuterol sulfate [...] % (Auto) 51.7, Lymph % (Auto) 37.1, Worth % (Auto) 6.6, Eos % (Auto) 3.1, [...] 23:29 EDT Reading Location ID and State: [id number] / [employer] , Service support , Hip/Pelvis X-Ray 12/27/23 23:05 IMPRESSION: Acute impacted fracture of the transcervical femoral neck. Electronically Signed: Weston Patel MD at 23:30 EDT , Assessment & Plan Assessment/Plan (1) Fracture [...] rehab. Patient's projected recovery will likely require mcfp or intensive inpatient rehabilitation prior to discharge back home. (2) Falls: (3) Weakness: (4) Microcytic anemia: (5) Chronic renal failure, stage 3 (moderate): QUALIFIERS: Chronic kidney disease stage 3 subtype: unspecified whether 3a or 3b Qualified Code(s): N18.30 - Chronic kidney disease, stage 3 unspecified 12/28/23 1259 <Electronically signed by Gabriel Byrd MD> Cosigner Signature (if applicable): CC: Dr. Ramone Smiley MD~ Signed [facility] Work Phone: 1(598) 241-215104-29-2024 Procedure [facility] 12-28-2023 Progress note Author Sunny Bell [facility] December 28, 2023 11:23am Note Date/Time December 28, 2023 9:5 2am [facility] Medical Records Department [address] [place] [address] Progress Note - Hospitalist 12/28/23 0949 MR#: [id number] Acct: [id number] Name: OLGA DONALDSON Rep #:[id number] : 1945 78 From: Sunny Blue PCP: Dr. Ramone Smiley MD Status:ADM IN [facility] Reason for Visit Reason for Visit: Diagnoses [...] % (Auto) 51.7, Lymph % (Auto) 37.1, Worth % (Auto) 6.6, Eos % (Auto) 3.1, [...] 23:29 EDT Reading Location ID and State: [email or web address] / [employer] , Service support , Hip/Pelvis X-Ray 12/27/23 23:05 IMPRESSION: Acute impacted fracture of the transcervical femoral neck. Electronically Signed: Weston Patel MD at 23:30 EDT Reading Location ID and State: [employer] / [employer] , Service support , Physical Exam Narrative Seen and examined. [...] Patient is a 78-year-old female who presented [facility] ED on 12/27/2023 with left hip pain after a fall at home. She got up from the couch toself catheter, got her walker turned and then lost balance and fell on her left hip. 1. Acute debility due to left impacted transcervical femoral neck fracture. ? Admit under inpatient status to [facility]. Orthopedics consulted. N.p.o. at midnight. PT/OT/case management [...] disposition: TBD Charges/Coding Visit Charges Inpatient E&M: 88276 Subs Hosp L2 12/28/23 1123 <Electronically signed by Sunny Bell MD> Cosigner Signature (if applicable): CC: ~ Signed [facility] Work Phone: 1(165) 116-652704-29-2024 History and physical note Author Nestor Bartlett [facility] December 28, 2023 4:47am Note Date/Time December 27, 2023 11: 30pm [facility] Medical Records Department [address] [place] [address] H&P Exam - Hospitalist 12/27/23 2330 MR#: [id number] Acct: [id number] Name: OLGA DONALDSON Rep #:[id number] : 1945 78 From: Nestor roman DO PCP: Dr. Ramone Smiley MD Status:ADM IN Location: [facility] QK868-3 HPI - General General Date of Admission: 12/27/23 Date of Service: 12/27/23 Chief Complaint: Left hip fracture HPI Narrative OLGA DONALDSON, is a 78 F who presented to [facility] ED on 12/27/2023 with left hip [...] be admitted for further management. [facility] Medical History Anemia Anxiety Aortic stenosis [...] mg chewable tablet 81 mg PO DAILY [facility] 01/21/16 [History Last Taken 08/12/23] albuterol sulfate [...] % (Auto) 51.7, Lymph % (Auto) 37.1, Worth % (Auto) 6.6, Eos % (Auto) 3.1, [...] Patient is a 78-year-old female who presented [facility] ED on 12/27/2023 with left hip pain after a fall at home. 1. Left femoral neck fracture ? Admit under inpatient status to [facility]. Orthopedics consulted. N.p.o. at midnight. Preop evaluation [...] 75 minutes. Charges/Coding Visit Charges Inpatient E&M: 47170 Init Hosp L3 12/28/23 0447 <Electronically signed by Nestor Bartlett DO> Cosigner Signature (if applicable): CC: Dr. Nestor Bartlett DO; Dr. Ramone Smiley MD~ Signed [facility] Work Phone: 1(530) 215-442704-29-2024 Discharge summary Author Queta Cortez [facility] December 28, 2023 2:33am Note Date/Time December 27, 2023 10: 23pm [facility] Medical Records Department [address] [facility] [place] [address] Emergency Department Summary 12/27/23 MR#: [id number] Acct: [id number] Name: OLGA DONALDSON Rep #:[id number] : 1945 78 From: Queta Cortez MD PCP: Dr. Ramone Smiley MD Status:ADM IN [facility] HPI HPI - Fall History of Present [...] aspirin but no other form of anticoagulant. [facility] Medical History Anemia Anxiety Aortic stenosis Asthma [...] Medical decision making narrative: Patient placed on rn cardiac rehab. Patient given morphine and Zofran for pain [...] % (Auto) 51.7 Lymph % (Auto) 37.1 Worth % (Auto) 6.6 Eos % (Auto) 3.1 [...] seen Dr. Ravi previously prior to his fdc. Dr. yBrd is on-call for [facility] and I will speak with him regarding admission to hospitalistservice and need for surgical repair. Discharge Plan Dx/Rx/DC Orders Clinical Impression: Fracture of hip, left, closed Disposition Disposition: Acute Care Hospital [facility] What to do if you have Problems For any increased pain, shortness of breath, bleeding, nausea or vomiting, chestpain, or any unexpected problems, contact your Primary Care Provider. Call [facility] ([phone]) or report to the closest Emergency Room. Call 911 if necessary. 12/28/23232 <Electronically signed by Queta Cortez MD> Cosigner Signature (if applicable): CC: Dr. Ramone Smiley MD ~ Signed [facility] Work Phone: 1(880) 567-339912-18-2023 Consult note Author Derrick Hallman [facility] [place] 18th, 2023 11:38am Note Date/Time August 17, 2023 11:38am [facility] Medical Records Department [address] [place] [address] Counseling Note - Pharmacy 08/17/23 1137 MR#: [id number] Acct: [id number] Name: OLGA DONALDSON Rep #:[id number] : 1945 78 From: Derrick Hallman PCP: Dr. Ramone Smiley MD Status:ADM IN Y Location: [place] [address] Pharmacy [facility] Service has performed discharge medication reconciliation [...] mg chewable tablet 81 mg PO DAILY [facility] 01/21/16 albuterol sulfate 90 mcg/actuation aerosol inhaler [...] signed by Derrick garg> Date _ Derrick Betancourt Signature (if applicable): Date CC: ~ Signed [facility] Work Phone: 1(275) 961-115112-18-2023 Discharge summary Author Sandeep Denson [facility] August 17, 2023 11:20am Note Date/Time August 17, 2023 11:12am [facility] Medical Records Department [address] [place] [address] Discharge Summary 08/17/23 1111 MR#: [id number] Acct: [id number] Name: OLGA DONALDSON Rep #:[id number] : 1945 78 From: Sandeep Denson MD PCP: Dr. Ramone Smiley MD Status:ADM IN Location: [facility] [id number] Providers Date of Admission: 08/13/23 Date of [...] mg chewable tablet 81 mg PO DAILY [employer] 01/21/16 albuterol sulfate 90 mcg/actuation aerosol inhaler [...] Requested for PT OT eval and social work associate to assist with discharge planning 4. 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 Sandeep Denson MD; Dr. Ramone Smiley MD~ Signed [facility] Work Phone: 1(297) 513-180812-17-2023 Progress note Author Nestor Banegasmarycarmen [facility] August 16, 2023 1:08pm Note Date/Time August 16, 2023 1:08pm [facility] Medical Records Department [address] [place] [address] Progress Note - Hospitalist 08/16/23 1300 MR#: [id number] Acct: [id number] Name: OLGA DONALDSON Rep #:[id number] : 1945 78 From: Nestor roman DO PCP: Dr. 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 Charges/Coding Visit Charges Inpatient E&M: 43684 Subs Hosp L2 08/16/23 1308 <Electronically signed by Nestor Bartlett DO> Cosigner Signature (if applicable): CC: ~ Signed [facility] Work Phone: 1(159) 509-801612-16-2023 Progress note [facility] August 15, 2023 1:28pm Note Date/Time August 15, 2023 1:24pm [facility] Medical Records Department [address] [facility] [place] [address] Progress Note - Hospitalist 08/15/23 1317 MR#: [id number] Acct: [id number] Name: OLGA DONALDSON Rep #:[id number] : 1945 78 From: Nestor roman DO PCP: Dr. 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 3. LIA, resolved [...] 35 minutes. Charges/Coding Visit Charges Inpatient E&M: 21032 Subs Hosp L2 08/15/23 1328 <Electronically signed by Nestor Barteltt DO> Cosigner Signature (if applicable): CC: ~ Signed [facility] Work Phone: 1(739) 276-148212-15-2023 Progress note Author Nestor [facility] August 14, 2023 3:08pm Note Date/Time August 14, 2023 2:58pm [facility] Medical Records Department [address] [place] [address] Progress Note - Hospitalist 08/14/23 1454 MR#: [id number] Acct: [id number] Name: OLGA DONALDSON Rep #:[id number] : 1945 78 From: Nestor roman DO PCP: Dr. 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 3. LIA, resolved [...] Monitor daily calcium. Plan for outpatient follow-up withPCP to address further as needed. 6. Acute [...] 35 minutes. Charges/Coding Visit Charges Inpatient E&M: 25656 [facility] Hosp L2 08/14/23 1508 <Electronically signed by Nestor Bartlett DO> Cosigner Signature (if applicable): CC: ~ Signed [facility] Work Phone: 1(555) 195-409012-14-2023 Discharge summary Author Robert Srinivasmasood [facility] August 13, 2023 3:29pm Note Date/Time August 13, 2023 10:40am [facility] Medical Records Department [address] [place] [address] Emergency Department Summary 08/13/23 MR#: [id number] Acct: [id number] Name: OLGA DONALDSON Rep #:[id number] : 1945 78 From: Robert Allison DO PCP: Dr. Ramone Smiley MD Status:ADM IN Location: [place] [address] HPI History of Present Illness Chief Complaint: Weakness [...] She denies chest pain. She self caths. [facility] Medical History Anemia Anxiety Aortic stenosis Asthma [...] 82.7 H Lymph % (Auto) 9.4 L Worth % (Auto) 6.1 Eos % (Auto) 0.1 [...] Sl. Cloudy Urine pH 5.0 Ur Specific Sheldon 1.015 Urine Protein 30 H Urine Glucose [...] Falls, Acute hyponatremia Disposition Disposition: Acute Care Hospital [facility] Discharge Date/Time: 08/13/23 14:54 What to do if you have Problems For any increased pain, shortness of breath, bleeding, nausea or vomiting, chestpain, or any unexpected problems, contact your Primary Care Provider. Call [facility] ([phone]) or report to the closest Emergency Room. Call 911 if necessary. 08/13/23 1529 <Electronically signed by Robert Allison DO> Cosigner Signature (if applicable): CC: Dr. Ramone Smiley MD ~ Signed [facility] Work Phone: 1(427) 155-259012-14-2023 History and physical note Author Heydi Amaya [facility] August 13, 2023 2:47pm Note Date/Time August 13, 2023 2:33pm [facility] Medical Records Department [address] [place] [address] H&P Exam - Hospitalist 08/13/23 1431 MR#: [id number] Acct: [id number] Name: OLGA DONALDSON Rep #:[id number] : 1945 78 From: Heydi Amaya MD PCP: Dr. Ramone Smiley MD Status:ADM IN Location: [facility] [id number] HPI - General General Date of Admission: 08/13/23 Date of Service: 08/13/23 Chief Complaint: Increasing weakness HPI Narrative OLGA DONALDSON, is [id number] female history of GERD, COPD, hypertension, diabetes, chronic urinary retention with self cathing presented to [facility] 08/13/2023 with increasing generalized weakness and [...] acute complaints at this time. [facility] Medical History Anemia Anxiety Aortic stenosis [...] (Auto) 82.7 H, Lymph% (Auto) 9.4 L, Worth % (Auto) 6.1, Eos % (Auto) 0.1, [...] Sl. Cloudy, Urine pH 5.0, Ur Specific Sheldon 1.015, Urine Protein 30 H, Urine Glucose [...] Amaya MD Charges/Coding Visit Charges Inpatient E&M: 49312 Init Hosp L2 08/13/23 1447 <Electronically signed by Heydi Amaya MD> Cosigner Signature (if applicable): CC: Dr. Ramone Smiley MD; Dr. Heydi Amaya MD~ Signed [facility] Work Phone: 1(604) 814-157005-31-[address] Lockwood [facility] January 28, 2023 4:30pm Note Date/Time January 28, 2023 3:17p m [facility] Medical Records Department [address] [place] [address] Emergency Department Summary 01/28/23 MR#: [id number] Acct: [id number] Name: OLGA DONALDSON Rep #:[id number] : 1945 78 From: Joseph Lockwood MD [...] pain which she has every single day. [facility] Medical History Anemia Anxiety Aortic stenosis Asthma [...] unit/mL subcutaneous solution 22 unit SQ BIDCM clqljsyh21/03/20 [History Last Taken Unknown] insulin detemir U-100 [...] % (Auto) 56.6 Lymph % (Auto) 34.2 Worth % (Auto) 5.6 Eos % (Auto) 2.6 [...] rhythm with a rate of 86. Normal SD and QTc intervals. No ischemic changes. Interpreted by emergency doctor Discharge Plan Triage Chief Complaint: Hypertension ED Provider: Joseph Lockwodo Dx/Rx/DC Orders Clinical Impression: Hypertension, Hx of [...] packet 0.5 ea PO BID Rx Instructions: 09/03-1/2 capful before each meal pantoprazole 40 MG tablet 40 mg PO QHS insulin detemir U-100 100 UNITS/ML insulin pen 56 units SC BIDCM Label Comments: diabetic medication Rx Instructions: . insulin aspart U-100 100 UNIT/ML solution 22 unit SQ BIDCM vitamin Z-ugfdbktqixym-ypcgexa 500 MG tablet,chewable 250 mg PO DAILY Primary Care Provider: Ramone Smiley Referrals: Ramone Smiley MD [Primary Care Provider] - 3-5 Days Disposition Disposition: Home, Self Care What to do if you have Problems For any increased pain, shortness of breath, bleeding, nausea or vomiting, chestpain, or any unexpected problems, contact your Primary Care Provider. Call [facility] ([phone]) or report to the closest Emergency Room. Call 911 if necessary. 01/28/23 1630 <Electronically signed by Joseph Lockwood MD> Cosigner Signature (if applicable): CC: Dr. Ramone Smiley MD ~ Signed [facility] Work Phone: 1(910) 679-274309-07-2022 NoteHNO ID: [id number] Author: 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 APRN.[employer] Service: ? Author Type: Nurse Practitioner Type: [...] an every 2-week basis for 4 cycles (CALGB-68837). Completed a year of trastuzumab 06/16/06. Referred back or anemia. Admitted to [facility] 12/02/2019 for chest pain with ambulation. Initial [...] 1.00 - 4.00 k/uL 2.70 2.30 2.03 Worth% % 7.0 6.6 6.9 Abs Worth <0.87 k/uL 0.49 0.47 0.47 Eosin% % [...] loss - ICD9: 280.0, (more content not included)...[facility]09-07-2022 History of Present illness Narrative* 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, BLANCA.[employer] - 05/07/2022 1:33 PM EDT Chief Complaint [...] an every 2-week basis for 4 cycles (CALGB-19975). Completed a year of trastuzumab 06/16/06. Referred back or anemia. Admitted to [facility] 12/02/2019 for chest pain with ambulation. Initial [...] 1.00 - 4.00 k/uL 2.70 2.30 2.03 Worth% % 7.0 6.6 6.9 Abs Worth <0.87 k/uL 0.49 0.47 0.47 Eosin% % [...] as necessary for today's visit. 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 APRN.MARLI documented [facility]06-[facility]-2022 Miscellaneous Notes* Telephone Encounter - Stacie Varner LPN - 02/10/2022 8:33 AM EDT Pt called and notified, pt voices understanding. Stacie Varner LPN * Telephone Encounter - Joseph Rolle DO - 02/10/2022 6:20 AM EDT Can let her know CBC and iron levels doing well. Follow up as scheduled. Joseph Rolle DO documented in this encounterFort [facility] Hospital01-31-2022 Miscellaneous Notes* Telephone Encounter - Joseph [...] filed. Joseph Rolle DO documented in this encounterFort [facility] Hospital07-15-2021 Miscellaneous Notes* Telephone Encounter - Marina [...] drive and will complete lab work and leaf size picker stool cards 03/21/2021, same day as [...] may have had one more recently at [facility]). Add on for 5 more doses of iron sucrose and repeat CBC/Iron studies about a month after completing. Joseph Rolle DO documented in this encounterWVUMedicine [facility] note Author Eboni Chan [facility] December 30, 2023 2:23pm Note Date/Time December 30, 2023 2:24pm [facility] Medical Records Department [address] [place] [address] Counseling Note - Pharmacy 12/30/23 1423 MR#: [id number] Acct: [id number] Name: OLGA DONALDSON Rep #:[id number] : 1945 78 From: Eboni Chan PCP: Dr. Ramone Smiley MD Status:ADM IN Location: [place] [address] Pharmacy [place] [facility]con[facility] Pharmacy Service has performed discharge medication reconciliation for this patient. The patient's discharge medication list was reviewed for discrepancies and discrepancies were resolved. Medications at Discharge Home Medications aspirin 81 mg chewable tablet 81 mg PO DAILY [facility] 01/21/16 albuterol sulfate 90 mcg/actuation aerosol [...] bisacodyl 10 mg rectal suppository 10 mg SD DAILY #0 ea 12/30/23 insulin glargine-yfgn 100 [...] tab PO BID #0 tabs 12/30/23 12/30/23 1423 <Electronically signed by Eboni Chan> Date _ Eboni Chan Cosigner Signature (if applicable): Date CC: ~ Signed [facility] Work Phone: Consult note Author Eboni Chan [facility] Note Date/Time January 24, 2025 2:52p [facility] Medical Records Department [address] [place] [address] Counseling Note - Pharmacy 01/24/25 1451 MR#: [id number] Acct: [id number] Name: OLGA DONALDSON Rep #:[id number] : 1945 80 From: Eboni Chan PCP: Dr. Ramone Smiley MD Status:ADM IN Location: [place] [address] Pharmacy [facility] Counseling Pharmacy Service has performed discharge [...] chewable tablet 81 mg PO DAILY [facility] 01/21/16 magnesium oxide 400 mg (241.3 [...] netarsudil 0.02 %-latanoprost 0.005 % eye drops (Rocklatan) 1 drp EACH EYE DAILY01/15/25 psyllium husk [...] Signature (if applicable): Date CC: ~ Signed [facility] Work Phone: Discharge summary Author Sunny Bell [facility] December 30, 2023 2:14pm Note Date/Time December 30, 2023 2:05pm [facility] Medical Records Department [address] [place] [address] Transfer to [facility] MR#: [id number] Acct: [id number] Name: OLGA DONALDSON Rep #:[id number] : 1945 78 From: Sunny Blue PCP: Dr. Ramone Smiley MD Status:ADM IN Certification of patient admission REQUIRED AT TIME OF ADMISSION. I CERTIFY THAT POST-HOSPITAL ECF SERVICES ARE REQUIRED TO BE GIVEN ON AN IN-PATIENT BASIS BECAUSE OF THE ABOVE NAMED PATIENT'S NEED FOR LONG-TERM CARE ON A CONTINUING BASIS FOR THE CONDITION(S) FOR WHICH HE/SHE WAS RECEIVING IN-PATIENT HOSPITAL SERVICES PRIOR TO HIS/HER TRANSFER TO THE ECF. 12/30/23 1414<Electronically signed by Sunny Bell MD> [...] Patient is a 78-year-old female who presented [facility] ED on 12/27/2023 with left hip pain after a fall at home. She got up from the couch toself catheter, got her walker turned and then lost balance and fell on her left hip. 1. Acute debility due to left impacted transcervical femoral neck fracture. ? Admit under inpatient status to [facility]. Orthopedics consulted. N.p.o. at midnight. PT/OT/case management [...] cousin over the phone who lives in [facility]. Patient is clinically doing well. Currently has [...] Attending Provider: Sunny Bell Primary Care Provider: Ramnoe Smiley Consulting Providers: Gabriel Byrd; Nestor Bartlett [...] 0RF bisacodyl 10 mg Suppository 10 mg SD DAILY Qty: 0 0RF insulin glargine-yfgn 100 [...] in before D/C Order can be placed): [facility] 12/30/23 1414 <Electronically signed by Sunny Bell MD> Cosigner Signature (if applicable): CC: Dr. Nestor Bartlett DO; Dr. Ramone Smiley MD; Dr. Gabriel Byrd MD ~ [facility] Work Phone: Discharge summary Author Sunny Bell [facility] December 30, 2023 2:26pm Note Date/Time December 30, 2023 2:21pm [facility] Medical Records Department [address] [place] [address] Discharge Summary 12/30/23 1414 MR#: [id number] Acct: [id number] Name: OLGA DONALDSON Rep #:[id number] : 1945 78 From: Sunny Blue PCP: Dr. Ramone Smiley MD Status:ADM [id number] Date of Admission: 12/27/23 Date of [...] Patient is a 78-year-old female who presented [facility] ED on 12/27/2023 with left hip pain after a fall at home. She got up from the couch toself catheter, got her walker turned and then lost balance and fell on her left hip. 1. Acute debility due to left impacted transcervical femoral neck fracture. ? [facility]. N.p.o. at midnight. PT/OT/case management [...] cousin over the phone who lives in [facility]. Patient is clinically doing well. Currently has [...] mg chewable tablet 81 mg PO DAILY [facility] 01/21/16 albuterol sulfate 90 mcg/actuation aerosol inhaler [...] bisacodyl 10 mg rectal suppository 10 mg SD DAILY #0 ea 12/30/23 insulin glargine-yfgn 100 [...] % (Auto) 63.9, Lymph % (Auto) 25.3, Worth % (Auto) 8.7, Eos % (Auto) 1.4, [...] 0RF bisacodyl 10 mg Suppository 10 mg SD DAILY Qty: 0 0RF insulin glargine-yfgn 100 [...] injector 0.75 mg subcut MO Hold Instructions: Ordered cod liver oil Capsule 1 cap [...] in before D/C Order can be placed): [facility] Charges/Coding Visit Charges Inpatient E&M: 23182 Disch Hosp >30min 12/30/23 1426 <Electronically signed by Sunny Bell MD> Cosigner Signature (if applicable): CC: Dr. Ramone Smiley MD; Dr. Sunny Bell MD; Dr. Gabriel Byrd MD~ Signed [facility] Work Phone: Discharge summary Author [facility] Note Date/Time January 24, 2025 1:27p [facility] Medical Records Department [address] [place] [address] Instructions for Home/Discharge Instructions 01/24/25 1326 MR#: [id number] Acct: [id number] Name: OLGA DONALDSON Rep #:[id number] : 1945 80 From: Melba Hartmann MD [...] DO; Dr. Marcelina Soto MD ~ Signed [facility] Work Phone: Discharge summary Author Jg Bryan [facility] Note Date/Time January 26, 2025 5:10a m [facility] Medical Records Department [address] [place] [address] Emergency Department Summary 01/26/25 MR#: [id number] Acct: [id number] Name: OLGA DONALDSON Rep #:[id number] : 1945 80 From: Jg Bryan DO [...] symptoms and therefore comes in for evaluation [facility] Medical History Fracture of hip, left, closed [...] mg tablet 25 mg PO BID BLOOD SD ESSURE 08/16/18 01/15/25 History pantoprazole 40 mg [...] U nknown History subcutaneous pen injector (Prabhu) furosemide 40 mg tablet 40 mg PO [...] cardiac dysrhythmia. Patient was kept on the rn cardiac rehab and there was no dysrhythmia noted. Blood [...] % (Auto) 65.0 Lymph % (Auto) 25.1 Worth % (Auto) 6.7 Eos % (Auto) 2.8 [...] the upper limits for size. Reading Location: [facility] Chest x-ray as interpreted by the emergency medicine physician reveals vascular congestion consistent with history of CHF without infiltrate or pleural effusion Discharge Plan Triage Chief Complaint: Shortness of Breath ED Provider: gJ Bryan Dx/Rx/DC Orders Clinical Impression: Dyspnea, CHF [...] you have any further concerns Print Language: Hungarian Disposition Disposition: Home, Self Care What to do if you have Problems For any increased pain, shortness of breath, bleeding, nausea or vomiting, chestpain, or any unexpected problems, contact your Primary Care Provider. Call [facility] ([phone]) or report to the closest Emergency Room. Call 911 if necessary. 01/26/25 0510 <Electronically signed by Jg Bryan DO> Cosigner Signature (if applicable): CC: Dr. Ramone Smiley MD ~ Signed [facility] Work Phone: Discharge summary Author Aj Holley [facility] Note Date/Time February 04, 2025 10:27 am [facility] Medical Records Department [address] [place] [address] Emergency Department Summary 02/04/25 MR#: [id number] Acct: [id number] Name: OLGA DONALDSON Rep #:[id number] : 1945 80 From: Aj Holley MD PCP: Dr. Ramone Smiley MD Status:REG ER Location: ED HPI History of Present Illness Chief Complaint: Shortness of Breath Informant: patient and EMS Narrative Narrative: 80-year-old female states that she has been short of breath this morning and since she fell off the couch that she was sleeping on. Feels like her COPD. She has a history of congestive heart failure and COPD on no home oxygen, she was very short of breath, she had an albuterol inhaler that she tried and only had a little bit of relief from so she called 911 and they gave her duo nebulizer which really helped a lot. Prior to that they detected her on room air at 81%. She denies any chest discomfort, cough, or changes in leg edema this morning. She denies injuring her chest or ribs or anything else when she fell off of the couch, and has no pain. [facility] Medical History Elevated troponin Coronary artery disease Aortic stenosis Hypertension Obesity (BMI 30.0-34.9) Lactic acidosis Fracture of hip, left, closed Paronychia of left index finger Vaginal cyst Anxiety Depression Irregular heart beat Multiple thyroid nodules Foraminal stenosis of lumbar region Lumbar spinal stenosis Diabetic retinopathy Colon polyp Thyroid goiter Hyperlipidemia Hypokalemia Microcytic anemia Neurogenic bladder Hypophosphatemia Hypercalcemia Former smoker UTI (urinary tract infection) Iron deficiency anemia Hyponatremia Urine retention Chronic renal failure, stage [...] mg tablet 25 mg PO BID BLOOD SD ESSURE 08/16/18 01/15/25 History pantoprazole 40 mg [...] BIDLX #60 tabs 12/30 03/24 Unknown Rx potassium chloride 20 mEq 20 [...] Time adhesive tape (tape) Allergy NEEDS Verified 02/04/25 06:21 FOLLOW-UP amoxicillin Allergy YEAST Verified 02/04/25 06:21 INFECTION cephalexin monohydrate (From Allergy Rash Verified 02/04/25 06:21 Keflex) clopidogrel bisulfate (From Allergy Other Verified 02/04/25 06:21 Plavix) Family History Daughter Breast cancer Father [...] fever(s) Eyes Eyes: Denies change in vision or diplopia ENT ENT ED: Denies rhinorrhea or sore throat Cardiovascular Cardiovascular: Denies chest pain, orthopnea, palpitations or paroxysmal nocturnal dyspnea Respiratory/Chest Respiratory/Chest: Reports dyspnea; Denies cough, orthopnea or paroxysmal nocturnal dyspnea Gastrointestinal Gastrointestinal: Denies abdominal pain, diarrhea, nausea or vomiting Genitourinary Genitourinary ED: Denies dysuria or hematuria Musculoskeletal Musculoskeletal: Denies back pain or neck pain Integumentary Denies abscess or rash Neurologic Neurologic: Denies headache(s), paresthesias or weakness Psychiatric Psychiatric: Denies suicidal thoughts EXAM Physical Exam Const Vital Signs: 02/04/25 06:20 02/04/25 06:20 02/04/25 06:57 Temperature 98.8 F Temperature Source Oral Pulse Rate 97 Respiratory Rate 22 H Respiratory Effort Respiratory Pattern Blood Pressure 148/70 H Blood Pressure Mean 96 Pulse Ox 81 98 94 Oxygen Delivery Method Room Air Nasal Cannula Nasal Cannula Oxygen Flow Rate (L/min) 4 4 02/04/25 06:57 02/04/25 07:06 Temperature Temperature Source Pulse Rate 94 Respiratory Rate 28 H Respiratory Effort Short of Breath Respiratory Pattern Tachypnea Blood Pressure Blood Pressure Mean Pulse Ox Oxygen Delivery Method Oxygen Flow Rate (L/min) Positive well nourished and well developed Constitutional Narrative: Conversive in full sentences General Appearance ED: well developed and NAD HEENT Reports moist mucous membranes normocephalic and atraumatic Eyes PERRL and EOMs intact bilaterally Neck full ROM, supple and no JVD Resp normal respiratory effort Resp Narrative: Slight end expiratory wheezes otherwise diminished throughout but symmetric Cardio regular rate and regular rhythm Cardio Narrative: Faint heart sounds GI non-tender and non-distended Auscultation: normoactive bowel sounds Palpation: soft Back/Spine no CVA tenderness General Back: other FROM Extremity normal to inspection General Extremety ED: Yes edema; Negative for pulses abnormal or tenderness General Extremity: edema bilateral lower extremity Details: trace; Negative for pulses abnormal Neuro oriented x3, CN's II-XII intact bilaterally and no sensory deficits noted Sensorium / Orientation: awake and alert Motor Exam: strength 5/5 throughout Psych mental status grossly normal Skin no rashes or lesions noted and no wounds MDM MDM MDM Narrative Medical decision making narrative: Patient seems to be in no distress and breathing much better now after the DuoNeb that EMS gave her. Because she was hypoxic and was just here inpatient 1week ago for a mixture of what seems to be COPD and CHF, I obtained more of a workup rather than just a chest x-ray. Her EKG shows some nonspecific lateral and inferior ST-T wave abnormalities but these are unchanged and similar compared with her prior. She was seen just prior cystic change, she currently is over an x-ray getting her chest x-ray. She had a nebulizer treatment. Upon return, nursing is to take her off of her oxygen, see if her hypoxemia is resolved. If she does not have a continuing oxygen requirement, has no pneumothorax or pneumonia in the rest of her labs other than the CBC which I have reviewed look okay, I would support discharge home and outpatient follow-up; reevaluation of the patient and evaluation of these other test has been checked out to the a.m. ED physician. History & Record Review Additional record(s) reviewed:: Prior ED visit Lab Data Attestation: I reviewed the patient's lab results. Labs: Laboratory Results - last 24 hr 02/04/25 06:50 WBC 11.2 H RBC 3.84 L Hgb 10.7 L Hct 34.1 L MCV 88.8 MCH 27.9 MCHC 31.4 L RDW Std Deviation 51.4 H RDW Coeff of Vijay 15.9 H Plt Count 185 MPV 11.3 Immature Gran % (Auto) 0.400 Neut % (Auto) 75.4 H Lymph % (Auto) 15.7 L Worth % (Auto) 6.6 Eos % (Auto) 1.7 Baso % (Auto) 0.2 Absolute Neuts (auto) 8.4 H Absolute Lymphs (auto) 1.75 Nucleated RBC % 0 Rhythm Strip Rhythm Strip: Sinus Rhythm Rate: 90 Ectopy: None EKG Initial EKG: Attestation: I personally reviewed and interpreted this EKG as follows: Interpretation: Sinus Rhythm, No Acute Injury Pattern and Non-Specific ST Changes (Lateral precordial and inferior leads) Prior EKG tracings: available for review Prior: Unchanged Discharge Plan Triage Chief Complaint: Shortness of Breath ED Provider: Aj Holley Dx/Rx/DC Orders Prescriptions: No Action Januvia 50 [...] PO BREAKFAST 5 Days Qty: 10 0RF Entresto 24-26 mg Tablet 1 tab [...] MD [Primary Care Provider] - Print Language: Hungarian What to do if you have Problems For any increased pain, shortness of breath, bleeding, nausea or vomiting, chestpain, or any unexpected problems, contact your Primary Care Provider. Call [facility] ([phone]) or report to the closest Emergency Room. Call 911 if necessary. 02/04/25 0719 <Electronically signed by Aj Holley MD> Cosigner Signature (if applicable): CC: Dr. Ramone Smiley MD ~ Signed ADDENDUM by Dr. Kwaku Marcial MD on 02/04/25 at 0820 2 view chest x-ray was independent reviewed interpreted by me. Patient has somechronic changes noted. The heart size and silhouette are unremarkable. There is interstitial thickening noted probably due to atelectasis lower lung white. There is no evidence of pneumothorax, effusion or infiltrate. There is degenerative changes noted of the thoracic spine. CBC reveals H&H at 10.7 and 34.1. H&H on 529 was 11.8 and 37.9. White count slightly elevated Greg 0.2 thousand. There is slight shift with no bandemia. Electrolyte panel reveals an estimated GFR of 48. Creatinine is 1.14. Glucose is slightly elevated 132 with a normal CO2 anion gap. Troponin is elevated at 139. If patient did not receive aspirin we will order aspirin. Patient's case was turned over to me at change of shift. Patient brought to ER for shortness of breath with pulse ox of 81% by EMS. Person is not on home oxygen. Recent admission for cold/CHF pneumonia. Since patient had abrupt onset of shortness of breath no chest discomfort need to consider pulmonary embolus since the chest x-ray is unremarkable and the elevated troponin may be due to right heart strain. 02/04/25 0820<Electronically signed by Kwaku Marcial MD> Cosigner Signature (if applicable): cc: Dr. Ramone Smiley MD ~* Signed ADDENDUM by Dr. Kwaku Marcial MD on 02/04/25 at 1027 CTA reveals atelectasis right and left lower lobe. There is asymmetric nodules noted of the thyroid. There is no evidence of pneumonia, pulmonary embolus or CHF. With an elevated proBNP and troponin and the fact the patient was hypoxic and PE has been ruled out need to evaluate for cardiac etiology. Will contact hospitalist for admission. She also has acute on chronic anemia. BUN to creatinine ratio is not elevated to suggest a GI bleed. 02/04/25 1027<Electronically signed by Kwaku Marcial MD> Cosigner Signature (if applicable): cc: Dr. Ramone Smiley MD ~* Signed [facility] Work Phone: Evaluation note* Diagnosis Onset Date Resolution Status Multiple thyroid nodules acu te Chronic renal failure, stage 3 (moderate) chronic Hypercalcemia chronic Abscess acute Abscess acute Abscess acute [facility] Work Phone: Evaluation note* Diagnosis Iron deficiency anemia due to chronic blood loss- Primary Iron deficiency anemia secondary to blood loss (chronic) documented in this encounter [facility] note* Diagnosis Onset Date Resolution Status Abscess acute Abscess acute Abscess acute Abscess acute Abscess acute Paronychia of left index finger acute [facility] Work Phone: Evaluation note* Diagnosis Iron deficiency anemia due to chronic blood loss- Primary Iron deficiency anemia secondary to blood loss (chronic) documented in this encounter [facility] note* Diagnosis Anemia, unspecified type- Primary documented in this encounter [facility] note* Diagnosis Iron deficiency anemia due to chronic blood loss- Primary Iron deficiency anemia secondary to blood loss (chronic) documented in this encounter [facility] noteNo assessment information availableWWadsworth[facility] Work Phone: Evaluation note* Diagnosis Onset Date Resolution Status Gastroenteritis acute [facility] Work Phone: Evaluation note* Diagnosis Onset Date Resolution Status Gastroenteritis acute [place] acute Weakness acute Asthma chronic COPD (chronic obstructive pulmonary disease) chronic GERD (gastroesophageal reflux disease) chronic History of malignant neoplasm of breast chronic Hypertension chronic Neurogenic bladder chronic Type 2 diabetes mellitus chr onic Acute hyponatremia resolved Acute UTI resolved LIA (acute kidney injury) re solved [facility] Work Phone: Evaluation note* Diagnosis Onset Date Resolution Status Fracture of hip, left, closed acute [facility] Work Phone: Evaluation note* Diagnosis Onset Date Resolution Status Falls acute Fracture of hip, left, closed acute Microcytic anemia acute Weakness acute Chronic renal failure, stage 3 (moderate) chronic Hypercalcemia chronic [facility] Work Phone: Evaluation note* Diagnosis Onset Date Resolution Status Gastroenteritis acute Acute hyponatremia acute Acute UTI acute LIA (acute kidney injury) ac jason [place] acute Weakness acute Asthma chronic COPD (chronic obstructive pulmonary disease) chronic GERD (gastroesophageal reflux disease) chronic History of malignant neoplasm of breast chronic Hypertension chronic Neurogenic bladder chronic Type 2 diabetes mellitus chr onic [facility] Work Phone: History and physical note Author Heydi Amaya [facility] August 13, 2023 2:47pm Note Date/Time August 13, 2023 2:33pm [facility] Medical Records Department [address] [place] [address] H&P Exam - Hospitalist 08/13/23 1431 MR#: [id number] Acct: [id number] Name: OLGA DONALDSON Rep #:[id number] : 1945 78 From: Heydi Amaya MD PCP: Dr. Ramone Smiley MD Status:ADM IN Location: [place] [address] HPI - General General Date of Admission: 08/13/23 Date of Service: 08/13/23 Chief Complaint: Increasing weakness HPI Narrative OLGA DONALDSON, is [id number] female history of GERD, COPD, hypertension, diabetes, chronic urinary retention with self cathing presented to [facility] 08/13/2023 with increasing generalized weakness and [...] acute complaints at this time. [facility] Medical History Anemia Anxiety Aortic stenosis [...] mg chewable tablet 81 mg PO DAILY [facility] 01/21/16 [History Last Taken 08/12/23] albuterol sulfate [...] (Auto) 82.7 H, Lymph% (Auto) 9.4 L, Worth % (Auto) 6.1, Eos % (Auto) 0.1, [...] Sl. Cloudy, Urine pH 5.0, Ur Specific Sheldon 1.015, Urine Protein 30 H, Urine Glucose [...] Amaya MD Charges/Coding Visit Charges Inpatient E&M: 45798 Init Hosp L2 08/13/23 2721 <Electronically signed by Heydi Amaya MD> Cosigner Signature (if applicable): CC: Dr. Ramone Smiley MD; Dr. Heydi Amaya MD~ Signed [facility] Work Phone: History and physical note Author Tono Gomez [facility] Note Date/Time February 09, 2025 3:52 pm [facility] Medical Records Department [address] [place] [address] H&P Exam - Hospitalist 02/09/25 1525 MR#: [id number] Acct: [id number] Name: OLGA DONALDSON Rep #:[id number] : 1945 80 From: Tono BHATTI PCP: Dr. Ramone Smiley MD Status:REG ER Location: ED HPI - General General Date of Service: 02/09/25 Chief Complaint: sob HPI Narrative OLGA DONALDSON, is a 80 F with pmhx of COPD with recent exacerabation, systolicand diastolic CHF, ischemic cardiomyopathy, T2DM on insulin, who presents with sob. She was discharged from the hospital on 02/06/25 after being treated for COPDand CHF exacerbation. At that time she did not qualify for home o2. She was doing well initially when she was discharged from the hospital until today. Today she became worse with increased SOB and mild productive cough. She states this is worse because it got more hot and humid at home and she was unable to get the air conditioner to respond adequately. She was brought to the ER and in the ER her O2 levels were decreased at 87% on RA and she is 95% on 2lpm O2 via NC. She notes that her LE edema is improving overall. She has no chest pain or chest pressure or tightness, no dizziness or lightheadedness, no palpitations. [facility] Medical History COPD with exacerbation Anemia History of COPD Elevated brain natriuretic peptide (BNP) level Elevated troponin Acute hypoxemic respiratory failure Elevated troponin Coronary artery disease Aortic stenosis Hypertension Obesity (BMI 30.0-34.9) Lactic acidosis Fracture of hip, left, closed Paronychia of left index finger Vaginal cyst Anxiety Depression Irregular heart beat Multiple thyroid nodules Foraminal stenosis of lumbar region Lumbar spinal stenosis Diabetic retinopathy Colon polyp Thyroid goiter Hyperlipidemia Hypokalemia Microcytic anemia Neurogenic bladder Hypophosphatemia Hypercalcemia Former smoker UTI (urinary tract infection) Iron deficiency anemia Hyponatremia Urine retention Chronic renal failure, stage [...] mg chewable tablet 81 mg PO DAILY HEART HEA LTH 01/21/16 01/15/25 History magnesium oxide 400 mg (241.3 mg 400 mg PO BID SUPPLEM ENT 08/16/18 01/15/25 History magnesium) tablet metoprolol tartrate 25 mg tablet 25 mg PO BID BLOOD SD ESSURE 08/16/18 01/15/25 History pantoprazole 40 mg [...] 160 mcg-glycopyr 9 2 inh inhalation BID franklyn athing 01/07/25 01/15/25 History mcg-formot 4.8 mcg/actuation HFA inhaler (Breztri Aerosphere) diltiazem HCl 180 mg 180 mg PO DAILY heart 01/15/25 History capsule,extended release 24 hr, controlled insulin glargine 100 unit/mL (3 20 unit subcut BID marco a betes 01/07/25 01/15/25 History mL) subcutaneous pen (Lantus Solostar U-100 [...] 1 - 2 spray intranasa l BID nasal 01/15/25 01/15/25 History spray spray mecobalamin (vitamin B12) 1,000 1,000 mcg PO DAILY hea lth 01/15/25 01/15/25 History mcg chewable tablet (B12 Active) maintenance menthol 0.44 %-zinc oxide 20.6 % 1 applic topical 4X/D AY PRN skin 01/15/25 Unknown History topical ointment (CalaSoothe) irritation netarsudil 0.02 %-latanoprost 1 drp EACH EYE DAILY eye drops 01/15/25 01/15/25 History 0.005 % [facility] psyllium husk 0.4 gram capsule 0.4 g PO DAILY constipa tion 01/15/25 01/15/25 History (Daily Fiber) tirzepatide 5 mg/0.5 mL 5 mg subcut QWEEK diabetes 0 01/15/25 Unknown History subcutaneous pen injector (Prabhu) potassium chloride 20 mEq 20 meq PO BID supplement 03/24 Unknown History tablet,extended release (K-Tab) furosemide 20 mg tablet (Lasix) 60 mg (3 x 20 mg) PO B ID #180 tabs 02/06/25 Unknown Rx ipratropium 0.5 mg-albuterol 3 mg 3 ml inhalation Q6H. RT #120 amps 02/06/25 Unknown Rx (2.5 mg base)/3 mL nebulization soln prednisone 10 mg tablet 10 mg PO BID #20 tabs Unknown Rx sacubitril 24 mg-valsartan 26 mg 1 tab PO BID #60 tabs 02/07/25 Unknown Rx tablet (Entresto) albuterol sulfate 90 mcg/actuation 2 puff inhalation Q 6H PRN 02/09/25 Unknown History aerosol inhaler shortness of breath or wheez ing cetirizine 10 mg tablet 10 mg PO DAILY 02/09/25 Unkn own History hydroxyzine HCl 25 mg tablet 12.5 mg PO QHS allergies 02/09/25 Unknown History spironolactone 25 0.5 tab PO DAILY 02/09/25 Un known History mg-hydrochlorothiazide 25 mg tablet Allergy/AdvReac Type Severity Reaction Status Date / Time adhesive tape (tape) Allergy NEEDS Verified 02/09/25 11:59 FOLLOW-UP cephalexin monohydrate (From Allergy Rash Verified 02/09/25 11:59 Keflex) clopidogrel bisulfate (From Allergy Other Verified 02/09/25 11:59 Plavix) amoxicillin AdvReac YEAST Verified 02/09/25 11:59 INFECTION Family History Daughter Breast cancer Father Hypertension [...] Merion- retired ROS Constitutional Constitutional: Denies chills, fever(s) or weakness Eyes Eyes: Denies blurry vision ENT HEENT: Denies nasal congestion, sinus pressure or sore throat Cardiovascular Cardiovascular: Denies chest pain, edema, lightheadedness or palpitations Respiratory/Chest Respiratory/Chest: Reports cough, dyspnea and productive cough Gastrointestinal Gastrointestinal: Denies abdominal pain, diarrhea, nausea or vomiting Genitourinary Genitourinary: Denies burning urination Musculoskeletal Musculoskeletal: Denies arthralgias Neurologic Neurologic: Denies abnormal gait Psychiatric Psychiatric: Denies anxiety Endocrine Endocrinology: Denies change in body appearance Hematologic/Lymphatic Hematologic/Lymphatic: Reports anemia Allergic/Immunologic Allergic/Immunologic: Denies rhinitis Vital Signs Vital Signs Vital Signs: 02/09/25 11:52 02/09/25 12:05 02/09/25 12:05 Temperature 98.8 F Temperature Source Oral Pulse Rate 94 Respiratory Rate 18 Respiratory Effort Short of Breath Respiratory Depth Shallow Respiratory Pattern Tachypnea Blood Pressure 113/64 Blood Pressure Mean 80 Pulse Ox 91 87 Oxygen Delivery Method Room Air Room Air Room Air Oxygen Flow Rate (L/min) 02/09/25 12:09 02/09/25 12:27 02/09/25 12:30 Temperature 98.4 F Temperature Source Oral Pulse Rate 92 86 Respiratory Rate 22 H 30 H Respiratory Effort Respiratory Depth Respiratory Pattern Blood Pressure 112/76 118/52 L Blood Pressure Mean 88 74 Pulse Ox 94 93 92 Oxygen Delivery Method Nasal Cannula Nasal Cannula Nasal Cannula Oxygen Flow Rate (L/min) 2 2 2 02/09/25 12:39 02/09/25 12:39 02/09/25 13:30 Temperature 98.3 F Temperature Source Oral Pulse Rate 88 110 H Respiratory Rate 27 H 16 Respiratory Effort Respiratory Depth Respiratory Pattern Tachypnea Blood Pressure 132/75 H Blood Pressure Mean 94 Pulse Ox 92 91 Oxygen Delivery Method Nasal Cannula Nasal Cannula Oxygen Flow Rate (L/min) 2 2 02/09/25 14:00 02/09/25 14:15 02/09/25 14:45 Temperature 98.4 F Temperature Source Oral Pulse Rate 86 Respiratory Rate 25 H Respiratory Effort Respiratory Depth Respiratory Pattern Blood Pressure 103/68 Blood Pressure Mean 79 Pulse Ox 100 95 87 Oxygen Delivery Method Nasal Cannula Room Air Room Air Oxygen Flow Rate (L/min) 2 02/09/25 15:03 02/09/25 15:08 02/09/25 15:12 Temperature 99 F 99 F Temperature Source Oral Pulse Rate 91 94 Respiratory Rate 22 H 25 H Respiratory Effort Respiratory Depth Respiratory Pattern Blood Pressure 136/46 H 136/46 H Blood Pressure Mean 76 76 Pulse Ox 87 90 91 Oxygen Delivery Method Room Air Nasal Cannula Oxygen Flow Rate (L/min) 2 Weight Weight: 77.2 kg Body Mass Index (BMI) 30.1 Physical Exam Const alert, oriented x3 and no apparent distress General Appearance: cooperative HEENT normocephalic and head/scalp atraumatic Eyes PERRL Neck no lymphadenopathy Resp normal respiratory effort Auscultation: wheezes expiratory wheezes Cardio regular rate, regular rhythm and no murmurs Extremity Extremity Narrative: trace pitting edema BL LE Skin Skin Narrative: dry scaly LE skin Neuro oriented x3 Psych affect normal Results Lab / Micro Data 02/09/25 12:23 02/09/25 12:23 Labs: Laboratory Results - last 24 hr 02/09/25 12:23: WBC 9.4, RBC 4.22, Hgb 11.5 L, Hct 37.9, MCV 89.8, MCH 27.3, MCHC 30.3 L, RDW Std Deviation 51.3 H, RDW Coeff of Vijay 15.8 H, Plt Count TNP, MPV 12.0, Immature Gran % (Auto) 0.800, Neut % (Auto) 86.9 H, Lymph % (Auto) 7.3L, Worth % (Auto) 4.5, Eos % (Auto) 0.1, Baso % (Auto) 0.4, Absolute Neuts (auto)8.2 H, Absolute Lymphs (auto) 0.69 L, Nucleated RBC % 0.6, Platelet Estimate ADEQUATE, Sodium 140, Potassium 4.3, Chloride 98, Carbon Dioxide 29.9, Anion Gap12, BUN 23 H, Creatinine 1.16, Estim Creat Clear Calc 37.42 L, Est GFR (MDRD) Non-Af 47 L, BUN/Creatinine Ratio 20.2 H, Glucose 173 H, Calcium 10.2, Troponin T High Sens 122 H* D, NT pro BNP II 9616 H 02/09/25 14:29: Troponin T Hi Sens 2 Hr 119 H* Rhythm Strip Rhythm Strip: Sinus Rhythm Rate: 93 Ectopy: None Imaging Radiology Impression Chest X-Ray 02/09/25 12:18 IMPRESSION: Cardiomegaly. Mild degree of bibasilar linear atelectasis. Reading Location: [facility] Assessment & Plan Assessment/Plan (1) COPD exacerbation: PLAN: 1. Acute COPD exacerbation with acute hypoxia - admit to meds surg. 87% RAin ER, 95% on 2lpm, no prior home o2 use. no evidence of acute infectious process. cxr with some atelectasis, EKG NSR. Very wheezy on exam throughout all white. pt placed on IV solumedrol and breathing treatments. 2. Indetermine troponin - troponin decreased since last visit. she has no CP, pressure, tightness, LH, or palp and a normal EKG. There is low suspicion for anacute cardiac process 3. Chronic systolic and diastolic CHF -BNP is chronically elevated. overall her LE edema is improved. She will be on 20 mg IV lasix q8h 4. Hx Ischemic CM - on entresto, lasix, aspirin, statin, metoprolol, cardizem 5. T2DM - continue home regimen plus sliding scale insulin DVT ppx: heparin Code status: discussed with Pt, she is Full Code. DC planning: is not interested in SNF, she wants to go home, and may need home o2 at discharge This patient was seen by Tono Gomez PA-C under the supervision of Doctor Michi. (2) Hypoxia: 02/09/25 1552 <Electronically signed by Tono BHATTI> Cosigner Signature (if applicable): CC: DAVY Dykes; Dr. Ramone Smiley MD~ Signed [facility] Work Phone: History and physical note Author Nestor Bartlett [facility] Note Date/Time February 15, 2025 2:57 pm [facility] Medical Records Department [address] [place] [address] H&P Exam - Hospitalist 02/15/25 1401 MR#: [id number] Acct: [id number] Name: OLGA DONALDSON Rep #:[id number] : 1945 80 From: Nestor roman DO PCP: Dr. Ramone Smiley MD Status:ADM JESS Location: [place] [id number] HPI - General General Date of Admission: 02/15/25 Date of Service: 02/15/25 Chief Complaint: Shortness of breath, acute on chronic debility HPI Narrative OLGA DONALDSON, is a 80 F who presented to [facility] ED on 02/15/2025 with shortness of breath and worsening ability. Patient was recently hospitalized here from 02/10-02/13 for COPD exacerbation secondary to parainfluenza 3 virus. She was also hospitalized in late December and early January forCOPD and CHF exacerbations. She was discharged home with home health care on 02/13. She lives at home with her and son. She has remained very fatigued at home with limited functional status and today she felt more short ofbreath despite being on supplemental oxygen that she did the previous 2 days. She noted that her pulse ox was reading in the low 80s. She has been using her breathing treatments as normal with mild to moderate relief of symptoms at home. Has also been taking her Lasix as prescribed with reported good urine output. In the ED today she did have a low- grade temp of 99.7F and mild sinus tachycardia to the 100s. She otherwise was breathing comfortably on 3 L nasal cannula at rest. Chest x-ray was unremarkable and improved from previous. BNP 4400 but this notably is improved from 9600 on 02/09. Plan was to discharge patient home but patient family noted that they had difficulty caring for her athome and would like SNF placement on discharge. Hospitalist was then contacted for admission. I saw the patient at bedside in the ED. She was fatigued appearing and did have crackles noted in her upper airways bilaterally with wet cough noted. However she otherwise was breathing comfortably on 3 L nasal cannula at rest. On chart review, had borderline therapy scores on previous admission with 6 click score of 21 but initial ambulation distance of only 40 feet. She denies any fevers or chills, chest pain or shortness of breath currently. Will be admitted for further management. [facility] Medical History (Updated 02/15/25 @ 13:[address] Robert Allison DO) History of diabetes mellitus COPD exacerbation Hypoxia Elevated troponin Acute dyspnea Poor venous access Diabetic polyneuropathy Hypomagnesemia Debility Weakness Gastroenteritis Abscess Postmenopausal bleeding GERD (gastroesophageal reflux disease) COPD (chronic obstructive pulmonary disease) History of constipation Asthma Osteoporosis COPD with exacerbation Anemia History of COPD Elevated brain natriuretic peptide (BNP) level Elevated troponin Acute hypoxemic respiratory failure Obesity (BMI 30.0-34.9) Elevated troponin Lactic acidosis Fracture of hip, left, closed Coronary artery [...] embolism History of malignant neoplasm of breast Hypertension Type 2 diabetes mellitus Home Medications ?Medication ?Instructions ?Recorded ?Last Taken ?Type aspirin 81 mg chewable tablet 81 mg PO DAILY HEART HEA LTH 01/21/16 01/15/25 History magnesium oxide 400 mg (241.3 mg 400 mg PO BID SUPPLEM ENT 08/16/18 01/15/25 History magnesium) tablet metoprolol tartrate 25 mg tablet 25 mg PO BID BLOOD SD ESSURE 08/16/18 01/15/25 History pantoprazole 40 mg [...] 160 mcg-glycopyr 9 2 inh inhalation BID franklyn athing 01/07/25 01/15/25 History mcg-formot 4.8 mcg/actuation HFA inhaler (Breztri Aerosphere) diltiazem HCl 180 mg 180 mg PO DAILY heart 01/15/25 History capsule,extended release 24 hr, controlled insulin glargine 100 unit/mL (3 20 unit subcut BID mraco a betes 01/07/25 01/15/25 History mL) subcutaneous pen (Lantus Solostar U-100 [...] 1 - 2 spray intranasa l BID nasal 01/15/25 01/15/25 History spray spray mecobalamin (vitamin B12) 1,000 1,000 mcg PO DAILY hea lth 01/15/25 01/15/25 History mcg chewable tablet (B12 Active) maintenance menthol 0.44 %-zinc oxide 20.6 % 1 applic topical 4X/D AY PRN skin 01/15/25 Unknown History topical ointment (CalaSoothe) irritation netarsudil 0.02 %-latanoprost 1 drp EACH EYE DAILY eye drops 01/15/25 01/15/25 History 0.005 % eye drops (Rocklatan) psyllium husk 0.4 gram capsule 0.4 g PO DAILY constipa tion 01/15/25 01/15/25 History (Daily Fiber) tirzepatide 5 mg/0.5 mL 5 mg subcut QWEEK diabetes 0 01/15/25 Unknown History subcutaneous pen injector (Mounjaro) potassium chloride 20 mEq 20 meq PO BID supplement 03/24 Unknown History tablet,extended release (K-Tab) furosemide 20 mg tablet (Lasix) 60 mg (3 x 20 mg) PO B ID #180 tabs 02/06/25 Unknown Rx ipratropium 0.5 mg-albuterol 3 mg 3 ml inhalation Q6H. RT #120 amps 02/06/25 Unknown Rx (2.5 mg base)/3 mL nebulization soln prednisone 10 mg tablet 10 mg PO BID #20 tabs Unknown Rx sacubitril 24 mg-valsartan 26 mg 1 tab PO BID #60 tabs 02/07/25 Unknown Rx tablet (Entresto) albuterol sulfate 90 mcg/actuation 2 puff inhalation Q 6H PRN 02/09/25 Unknown History aerosol inhaler shortness of breath or wheez ing cetirizine 10 mg tablet 10 mg PO DAILY 02/09/25 Unkn own History hydroxyzine HCl 25 mg tablet 12.5 mg PO QHS allergies 02/09/25 Unknown History Allergy/AdvReac Type Severity Reaction Status Date / Time adhesive tape (tape) Allergy NEEDS Verified 02/09/25 11:59 FOLLOW-UP cephalexin monohydrate (From Allergy Rash Verified 02/09/25 11:59 Keflex) clopidogrel bisulfate (From Allergy Other Verified 02/09/25 11:59 Plavix) amoxicillin AdvReac YEAST Verified 02/09/25 11:59 INFECTION Family History Daughter Breast cancer Father Hypertension Sister Cancer Kidney disease Mother Pancreatic cancer Surgical History (Updated 02/14/25 @ 00:01 by Background Татьяна) History of left hip hemiarthroplasty S/P fine [...] social history: [employer]- retired ROS Constitutional Constitutional: Reports fatigue and weakness; Denies chills or fever(s) Eyes Eyes: Denies change in vision Cardiovascular Cardiovascular: Denies chest pain, dyspnea on exertion, edema, lightheadedness or palpitations Respiratory/Chest Respiratory/Chest: Reports cough, productive cough and shortness of breath with exertion; Denies shortness of breath at rest or wheezing Gastrointestinal Gastrointestinal: Denies abdominal pain Musculoskeletal Musculoskeletal: Denies arthralgias or myalgias Neurologic Neurologic: Denies dizziness, focal weakness or headache(s) Vital Signs Vital Signs Vital Signs: 02/15/25 08:36 02/15/25 08:36 02/15/25 09:26 Temperature 98.6 F Temperature Source Oral Pulse Rate 112 H 98 Respiratory Rate 22 H 17 Respiratory Effort Short of Breath Labored Respiratory Depth Shallow Respiratory Pattern Tachypnea Normal Blood Pressure 111/61 Blood Pressure Mean 77 Pulse Ox 92 Oxygen Delivery Method Room Air Oxygen Flow Rate (L/min) 02/15/25 11:00 02/15/25 11:19 02/15/25 11:19 Temperature 99.5 F H Temperature Source Oral Pulse Rate 105 H Respiratory Rate 30 H Respiratory Effort Respiratory Depth Respiratory Pattern Blood Pressure 120/49 L Blood Pressure Mean 72 Pulse Ox 84 97 Oxygen Delivery Method Room Air Room Air Nasal Cannula Oxygen Flow Rate (L/min) 3 02/15/25 11:52 02/15/25 13:54 02/15/25 13:54 Temperature 99.6 F H 99.6 F H Temperature Source Oral Pulse Rate 103 H 99 98 Respiratory Rate 26 H 24 H 22 H Respiratory Effort Respiratory Depth Respiratory Pattern Blood Pressure 123/57 H 110/53 L 110/53 L Blood Pressure Mean 79 72 72 Pulse Ox 97 97 98 Oxygen Delivery Method Nasal Cannula Nasal Cannula Oxygen Flow Rate (L/min) 3 3 Weight Weight: 78.1 kg Body Mass Index (BMI) 30.4 Physical Exam Const alert, oriented x3 and no apparent distress Constitutional Narrative: Elderly female, class I obesity, fatigued and somewhat weak appearing, otherwisesitting back comfortably in bed, answering questions appropriately, in no acute distress. General Appearance: cooperative and comfortable HEENT normocephalic, head/scalp atraumatic, hearing grossly normal bilaterally, nasal mucous membranes and turbinates normal and moist oral mucous membranes Eyes PERRL, EOMs intact bilaterally and conjunctivae normal Neck full ROM Chest inspection of chest normal Resp normal respiratory effort and no use of accessory muscles Resp Narrative: Breathing comfortably on 3 L nasal cannula at rest. Mild crackles noted in upper airways bilaterally with wet cough noted on exam, but otherwise good air movement throughout with no wheezing noted. Cardio no murmurs and peripheral pulses 2+ throughout Cardio Narrative: Tachycardic, regular rhythm. GI normal to inspection, nondistended, normoactive bowel sounds, soft to palpation,non-tender and non-distended Back/Spine normal ROM Extremity normal to inspection, full ROM and no pedal edema Skin no rashes or lesions noted Psych mental status grossly normal Results Lab / Micro Data 02/15/25 10:55 02/15/25 10:55 Labs: Laboratory Results - last 24 hr 02/15/25 10:55: WBC 9.0, RBC 3.74 L, Hgb 10.1 L, Hct 33.5 L, MCV 89.6, MCH 27.0,MCHC 30.1 L, RDW Std Deviation 52.9 H, RDW Coeff of Vijay 16.2 H, Plt Count 243, MPV 10.4, Immature Gran % (Auto) 1.000 H, Neut % (Auto) 82.5 H, Lymph % (Auto) 10.9 L, Worth % (Auto) 4.8, Eos % (Auto) 0.7, Baso % (Auto) 0.1, Absolute Neuts (auto) 7.5, Absolute Lymphs (auto) 0.98, Nucleated RBC % 0, Sodium 138, Potassium 4.3, Chloride 98, Carbon Dioxide 30.9, Anion Gap 9, BUN 24 H, Creatinine 1.04, Estim Creat Clear Calc 41.98 L, Est GFR (MDRD) Non-Af 54 L, BUN/Creatinine Ratio 23.1 H, Glucose 97, Calcium 10.7, Troponin T High Sens 117 H*, NT pro BNP II 4408 H 02/15/25 12:35: Troponin T Hi Sens 2 Hr 113 H* Imaging Radiology Impression Chest X-Ray 02/15/25 12:15 IMPRESSION: No convincing radiographic evidence of acute cardiopulmonary process. Reading [facility] Assessment & Plan Assessment/Plan (1) Generalized weakness: PLAN: Plan Patient is an 80-year-old female who presented [facility] ED on 02/15/2025 with recurrent shortness of breath and acute on chronic debility. 1. Acute on chronic debility ? Admit under observation status to [facility]. PT/OT/case management consulted. Multiple recent hospitalizations for COPD and CHF exacerbations. Most recent hospitalization from 02/10-02/13 for COPD exacerbation secondary to parainfluenza 3 virus. Discharged home with home health care at that time. Has had poor functional status at home and patient and family requesting SNF on discharge. Appreciate therapy recommendations. 2. Recent parainfluenza 3 infection with COPD exacerbation in setting of chronic respiratory failure ? Recent hospitalization from 02/10-02/13 for COPD exacerbation secondary to parainfluenza 3 pneumonia. Improved with IV steroids and scheduled DuoNebs, wasdischarged home on 2 L at rest and 3 L with exertion. Satting in the mid to high 90s on 3 L at rest in the ED. Chest x-ray improved from previous. However, patient does have some crackles noted in upper airways bilaterally and wet cough noted. Also has a low-grade fever of 99.6F in the ED. Sputum cultureand procalcitonin ordered. Continue home scheduled DuoNebs every 6 hours and will treat with p.o. prednisone 40 mg daily; unclear if patient was discharged on prednisone taper but anticipate this would be beneficial for her. Will hold on antibiotics for now. Mucinex and incentive spirometry ordered as well. Continue home long-acting inhalers and roflumilast. 3. Elevated troponins in setting of chronic HFpEF, nonobstructive CAD, hypertension, hyperlipidemia, mild aortic stenosis ? Troponin trend 117 > 113 in the ED. Suspect demand ischemia secondary to somedegree of hypoxia at home as noted above. EKG with no ischemic changes. Follows with outpatient cardiology, last office visit on 01/31. Recent new diagnosis of HFrEF on echo on 01/20 with EF 35 to 40%, mildly dilated LV, moderate global LV hypokinesis; mild aortic stenosis noted that was stable from previous. Chest x-ray clear on admit. BNP 4400 but this is much improved from BNP 9600 on 02/09. Given her crackles and wet cough on exam in the ED as above, gave 1 dose of IV Lasix 60 mg and then will continue home p.o. Lasix 60 mg twicedaily. Continue home aspirin, statin, Entresto, diltiazem and Lopressor. Hold home Jardiance for now. No further cardiac workup needed at this time. 4. Type 2 diabetes mellitus with neuropathy ? Blood glucose 97 on admit. Patient reports poor appetite over the past several days. Will treat with reduced doses of Lantus 10 units twice daily, Humalog 5 units with meals plus sliding scale insulin, adjust as needed. Holding home Januvia and Mounjaro. Continue home gabapentin. 5. Mild chronic normocytic anemia ? Hemoglobin 10.1 on admit, at baseline 10-11. Stable. 6. GERD ? Continue home PPI. 7. Class I obesity ? BMI 30 on admit. Complicates hospital course, care and prognosis. DVT prophylaxis: Lovenox CODE STATUS: Full code, verified Expected disposition: Likely SNF, 1 to 2 days Total clinical time spent by myself addressing the patient's medical issues, reviewing all the data, and collaborating with patient's care team: 75 minutes. Charges/Coding Visit Charges Inpatient E&M: 56578 Init Hosp L3 02/15/25 9415 <Electronically signed by Nestor Bartlett DO> Cosigner Signature (if applicable): CC: Dr. Nestor Bratlett DO; Dr. Ramone Smiley MD~ Signed [facility] Work Phone: Hospital Discharge instructions Additional Instructions Chest x-ray negative. COVID, flu, RSV negative. Your glucose 321 the lab normal gap. You are given 10 units of short acting insulin. You were started on antibiotics and steroids. Your glucose will be elevated with the steroids. Continue insulin including your sliding scale. Next dose of antibiotics steroids is tomorrow. This was sent to [facility] Work Phone: Hospital Discharge instructions Additional Instructions Take medications as prescribed. Follow-up your doctor in outpatient setting. Return with worsening symptoms or concerns.[facility] Work Phone: Hospital Discharge instructions Additional [...] the ER should you have any further concernsWWadsworth-[facility] Work Phone: Reason for referral (narrative)No reason for referral information availableWWadsworth-Rittman Hospital Work Phone: Summary Purpose Family History Relationship Condition Age at Onset Recorded Date/T davis daughter Malignant neoplasm of breast Unknown father Hypertension Unknown sister Malignant neoplasm Unknown Kidney disorder Unknown mother Malignant neoplasm of pancreas Unknown Advance Directives Advance Directive Response Recorded Date/ Time Advance Directives Yes December 02 8:47am Living Will Yes December 02, 2021 8:47am Power of Transfusion Aide Yes December 02 8:47am Documents on File Type Date Recorded 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 Expl anation Advance Directive(s) 05/12/2016 10:06 AM Advance Directive(s) 04/30/2016 11:10 AM Advance Directive(s) 02/19/2016 5:55 AM Advance Directive(s) 02/14/2016 3:07 PM Advance Directive Response Recorded Date/ Time Advance Directives Yes December 02 7:47am Living Will Yes July 14, 2 022 2:52pm Power of Transfusion Aide Yes July 14, 2022 2:52pm Name of Medical Power of Transfusion Aide son July 14, 2022 2:52pm Advance Directive Response Recorded Date/ Time Advance Directives Yes December 02 8:47am Living Will Yes July 14, 2 022 3:52pm Power of Transfusion Aide Yes July 14, 2022 3:52pm Advance Directive Response Recorded Date/ Time Name of Medical Power of Transfusion Aide SHANTELLE January 28, 2023 3:11pm Advance Directives Yes December 02 8:47am Living Will Yes January 28, 2023 3 :11pm Power of Transfusion Aide Yes January 28, 2023 3:11pm Advance Directive Response Recorded Date/ Time Name of Medical Power of Transfusion Aide Ursula Donaldson July 18, 2023 11:35pm Advance Directives Yes December 02 7:47am Living Will Yes July 18, 2 023 11:35pm Power of Transfusion Aide Yes July 18, 2023 11:35pm Advance Directive Response Recorded Date/ Time Name of Medical Power of Transfusion Aide . August 07, 2023 9:45pm Advance Directives Yes December 02 7:47am Living Will No August 13, 2 023 3:22pm Power of Transfusion Aide No August 13, 2023 3:22pm Name of Medical Power of Transfusion Aide Ursula Donaldson July 18, 2023 11:35pm Advance Directive Response Recorded Date/ Time Advance Directives Yes December 02 8:47am Living Will No August 13, 2 023 4:22pm Power of Transfusion Aide No August 13, 2023 4:22pm Advance Directive Response Recorded Date/ Time Advance Directives Yes December 02 8:47am Living Will No December 27, 2023 11:02pm Power of Transfusion Aide No December 26 11:02pm Advance Directive Response Recorded Date/ Time Advance Directives Yes December 02 8:47am Living Will No December 28, 2023 12:27am Power of Transfusion Aide No December 27 12:27am Advance Directive Response Recorded Date/ Time Name of Medical Power of Transfusion Aide . August 07, 2023 9:45pm Advance Directives Yes December 02 7:47am Living Will No August 13, 11:05am Power of Transfusion Aide No August 13, 2023 11:05am Name of Medical Power of Transfusion Aide Ursula Donaldson July 18, 2023 11:35pm Advance Directive Response Recorded Date/ Time Do you have a Healthcare Power of Transfusion Aide? No January 07, 2025 3:00pm Advance Directives Yes December 02 8:47am Advance Directive Response Recorded Date/ Time Do you have a Healthcare Power of Transfusion Aide? No January 15, 2025 2:24pm Do you have a Healthcare Power of Transfusion Aide? No January 07, 2025 3:00pm Advance Directives Yes December 02 8:47am Advance Directive Response Recorded Date/ Time Do you have a Healthcare Power of Transfusion Aide? No January 15, 2025 2:24pm Do you have a Healthcare Power of Transfusion Aide? No January 20, 2025 4:39am Do you have a Healthcare Power of Transfusion Aide? No January 07, 2025 3:00pm Advance Directives Yes December 02 8:47am Advance Directive Response Recorded Date/ Time Do you have a Healthcare Power of Transfusion Aide? No January 15, 2025 2:24pm Do you have a Healthcare Power of Transfusion Aide? No January 20, 2025 4:39am Do you have a Healthcare Power of Transfusion Aide? No January 07, 2025 3:00pm Do you have a Healthcare Power of Transfusion Aide? No January 26, 2025 3:01am Advance Directives Yes December 02 8:47am Advance Directive Response Recorded Date/ Time Do you have a Healthcare Power of Transfusion Aide? No January 15, 2025 2:24pm Do you have a Healthcare Power of Transfusion Aide? No January 20, 2025 4:39am Do you have a Healthcare Power of Transfusion Aide? Yes February 04, 2025 6:32am Name of Medical Power of Transfusion Aide February 04, 2025 6:32am Do you have a Healthcare Power of Transfusion Aide? No January 07, 2025 3:00pm Do you have a Healthcare Power of Transfusion Aide? No January 26, 2025 3:01am Advance Directives Yes December 02 8:47am Advance Directive Response Recorded Date/ Time Do you have a Healthcare Power of Transfusion Aide? No January 15, 2025 2:24pm Do you have a Healthcare Power of Transfusion Aide? No January 20, 2025 4:39am Do you have a Healthcare Power of Transfusion Aide? Yes February 04, 2025 12:35pm Name of Medical Power of Transfusion Aide February 04, 2025 6:32am Do you have a Healthcare Power of Transfusion Aide? No January 07, 2025 3:00pm Do you have a Healthcare Power of Transfusion Aide? No January 26, 2025 3:01am Advance Directives Yes December 02 8:47am Advance Directive Response Recorded Date/ Time Do you have a Healthcare Power of Transfusion Aide? No January 15, 2025 2:24pm Do you have a Healthcare Power of Transfusion Aide? No January 20, 2025 4:39am Do you have a Healthcare Power of Transfusion Aide? Yes February 04, 2025 12:35pm Name of Medical Power of Transfusion Aide February 04, 2025 6:32am Do you have a Healthcare Power of Transfusion Aide? Yes February 09, 2025 12:01pm Name of Medical Power of Transfusion Aide ursula teo bradshaw February 09, 2025 12:01pm Do you have a Healthcare Power of Transfusion Aide? No January 07, 2025 3:00pm Do you have a Healthcare Power of Transfusion Aide? No January 26, 2025 3:01am Advance Directives Yes December 02 8:47am Advance Directive Response Recorded Date/ Time Do you have a Healthcare Power of Transfusion Aide? No January 15, 2025 2:24pm Do you have a Healthcare Power of Transfusion Aide? No January 20, 2025 4:39am Do you have a Healthcare Power of Transfusion Aide? Yes February 04, 2025 12:35pm Name of Medical Power of Transfusion Aide February 04, 2025 6:32am Do you have a Healthcare Power of Transfusion Aide? Yes February 09, 2025 4:43pm Name of Medical Power of Transfusion Aide ursula lees jr February 09, 2025 4:43pm Do you have a Healthcare Power of Transfusion Aide? No January 07, 2025 3:00pm Do you have a Healthcare Power of Transfusion Aide? No January 26, 2025 3:01am Advance Directives Yes December 02 8:47am Advance Directive Response Recorded Date/ Time Do you have a Healthcare Power of Transfusion Aide? No January 15, 2025 2:24pm Do you have a Healthcare Power of Transfusion Aide? No January 20, 2025 4:39am Do you have a Healthcare Power of Transfusion Aide? Yes February 04, 2025 12:35pm Name of Medical Power of Transfusion Aide February 04, 2025 6:32am Do you have a Healthcare Power of Transfusion Aide? Yes February 09, 2025 4:43pm Name of Medical Power of Transfusion Aide ursula lees jr February 09, 2025 4:43pm Do you have a Healthcare Power of Transfusion Aide? Yes February 15, 2025 8:36am Do you have a Healthcare Power of Transfusion Aide? No January 07, 2025 3:00pm Do you have a Healthcare Power of Transfusion Aide? No January 26, 2025 3:01am Advance Directives Yes December 02 8:47am Advance Directive Response Recorded Date/ Time Do you have a Healthcare Power of Transfusion Aide? No January 15, 2025 2:24pm Do you have a Healthcare Power of Transfusion Aide? No January 20, 2025 4:39am Do you have a Healthcare Power of Transfusion Aide? Yes February 04, 2025 12:35pm Name of Medical Power of Transfusion Aide February 04, 2025 6:32am Do you have a Healthcare Power of Transfusion Aide? Yes February 09, 2025 4:43pm Name of Medical Power of Transfusion Aide ursula lees jr February 09, 2025 4:43pm Do you have a Healthcare Power of Transfusion Aide? Yes February 15, 2025 3:20pm Do you have a Healthcare Power of Transfusion Aide? No January 07, 2025 3:00pm Do you have a Healthcare Power of Transfusion Aide? No January 26, 2025 3:01am Advance Directives Yes December 02 8:47am Chief Complaint and Reason for Visit Chief Complaint THYROID SCREENING HYPERPARATHYROIDISM VAGINAL LUMP, PAINFUL VAGINAL LUMP F/U fu per Reason for Visit Multiple thyroid nod ules [...] 1:30pm sob January 26, 2025 3:00a m Chief Complaint Admit Date LT HIP/PT [...] 1:30pm sob January 26, 2025 3:00a m S/P [facility] 01/24 (PCU) January 31, 2025 1:42p m HYPOXIA, EXACERBATION OF COPD February 04, 2025 10:52am Reason for Visit Admit Date Aortic stenosis January 20, 2025 3:32a m Coronary artery disease January 20, 2025 3 :32am Elevated troponin January 20, 2025 3:32a m Hypertension January 20, 2025 3:32a m Acute hypoxemic respiratory failure January 20, 2025 3:32am Acute hypoxic on chronic hypercapnic res piratory failure January 20, 2025 3:32am CHF exacerbation January 20, 2025 3:32a m COPD exacerbation January 20, 2025 3:32a m Leukocytosis January 20, 2025 3:32a m Pneumonia January 20, 2025 3:32a m Lactic acidosis January 20, 2025 3:32a m Obesity (BMI 30.0-34.9) January 20, 2025 3 :32am Aortic stenosis January 31, 2025 1:42p m Coronary artery disease January 31, 2025 1 :42pm Hyperlipidemia January 31, 2025 1:42p m Hypertension January 31, 2025 1:42p m CHF (congestive heart failure) January 31, 2025 1:42pm Acute hypoxemic respiratory failure February 04, 2025 10:52am Anemia February 04, 2025 10:52 am Elevated brain natriuretic peptide (BNP) level February 04, 2025 10:52am Elevated troponin February 04, 2025 10:52 am History of COPD February 04, 2025 10:52 am Hyperlipidemia February 04, 2025 10:52 am Hypertension February 04, 2025 10:52 am Type 2 diabetes mellitus February 04, 2025 10:52am Chief Complaint Admit Date LT HIP/PT HAS [...] 1:30pm sob January 26, 2025 3:00a m S/P [facility] 01/24 (PCU) January 31, 2025 1:42p m HYPOXIA, EXACERBATION OF COPD February 04, 2025 10:52am HYPOXIA, EXACERBATION OF COPD February 05, 2025 2:42pm Reason for Visit Admit Date Aortic stenosis January 20, 2025 3:32a m Coronary artery disease January 20, 2025 3 :32am Elevated troponin January 20, 2025 3:32a m Hypertension January 20, 2025 3:32a m Acute hypoxemic respiratory failure January 20, 2025 3:32am Acute hypoxic on chronic hypercapnic res piratory failure January 20, 2025 3:32am CHF exacerbation January 20, 2025 3:32a m COPD exacerbation January 20, 2025 3:32a m Leukocytosis January 20, 2025 3:32a m Pneumonia January 20, 2025 3:32a m Lactic acidosis January 20, 2025 3:32a m Obesity (BMI 30.0-34.9) January 20, 2025 3 :32am Aortic stenosis January 31, 2025 1:42p m Coronary artery disease January 31, 2025 1 :42pm Hyperlipidemia January 31, 2025 1:42p m Hypertension January 31, 2025 1:42p m CHF (congestive heart failure) January 31, 2025 1:42pm Acute hypoxemic respiratory failure February 04, 2025 10:52am Anemia February 04, 2025 10:52 am Elevated brain natriuretic peptide (BNP) level February 04, 2025 10:52am Elevated troponin February 04, 2025 10:52 am COPD with exacerbation February 04, 2025 10 :52am History of COPD February 04, 2025 10:52 am Hyperlipidemia February 04, 2025 10:52 am Hypertension February 04, 2025 10:52 am Type 2 diabetes mellitus February 04, 2025 10:52am Chief Complaint Admit Date LT HIP/PT HAS [...] 1:30pm sob January 26, 2025 3:00a m S/P [facility] 01/24 (PCU) January 31, 2025 1:42p m HYPOXIA, EXACERBATION OF COPD February 04, 2025 10:52am HYPOXIA, EXACERBATION OF COPD February 04, 2025 6:54pm HYPOXIA, EXACERBATION OF COPD February 05, 2025 2:42pm HYPOXIA, EXACERBATION OF COPD February 06, 2025 2:01pm EXACERBATION OF COPD, HYPOXIA February 09, 2025 3:00pm sob February 09, 2025 3:25 pm Reason for Visit Admit Date Aortic stenosis January 20, 2025 3:32a m Coronary artery disease January 20, 2025 3 :32am Elevated troponin January 20, 2025 3:32a m Acute hypoxemic respiratory failure January 20, 2025 3:32am Acute hypoxic on chronic hypercapnic res piratory failure January 20, 2025 3:32am CHF exacerbation January 20, 2025 3:32a m COPD exacerbation January 20, 2025 3:32a m Leukocytosis January 20, 2025 3:32a m Pneumonia January 20, 2025 3:32a m Hypertension January 20, 2025 3:32a m Lactic acidosis January 20, 2025 3:32a m Obesity (BMI 30.0-34.9) January 20, 2025 3 :32am Aortic stenosis January 31, 2025 1:42p m Coronary artery disease January 31, 2025 1 :42pm CHF (congestive heart failure) January 31, 2025 1:42pm Hyperlipidemia January 31, 2025 1:42p m Hypertension January 31, 2025 1:42p m Acute hypoxemic respiratory failure February 04, 2025 10:52am Anemia February 04, 2025 10:52 am COPD with exacerbation February 04, 2025 10 :52am Elevated brain natriuretic peptide (BNP) level February 04, 2025 10:52am Elevated troponin February 04, 2025 10:52 am History of COPD February 04, 2025 10:52 am Hyperlipidemia February 04, 2025 10:52 am Hypertension February 04, 2025 10:52 am Type 2 diabetes mellitus February 04, 2025 10:52am Acute dyspnea February 09, 2025 3:00 pm Elevated troponin February 09, 2025 3:00 pm History of diabetes mellitus February 09, 2025 3:00pm Hypoxia February 09, 2025 3:00 pm COPD exacerbation February 09, 2025 3:00 pm History of acute heart failure January 3:00pm Chief Complaint Admit Date LT HIP/PT HAS [...] 1:30pm sob January 26, 2025 3:00a m S/P [facility] 01/24 ([facility]) January 31, 2025 1:42p m HYPOXIA, EXACERBATION OF COPD February 04, 2025 10:52am HYPOXIA, EXACERBATION OF COPD February 04, 2025 6:54pm HYPOXIA, EXACERBATION OF COPD February 05, 2025 2:42pm HYPOXIA, EXACERBATION OF COPD February 06, 2025 2:01pm EXACERBATION OF COPD, HYPOXIA February 09, 2025 3:00pm sob February 09, 2025 3:25 pm EXACERBATION OF COPD, HYPOXIA February 10, 2025 5:20pm EXACERBATION OF COPD, HYPOXIA February 11, 2025 4:21pm EXACERBATION OF COPD, HYPOXIA February 12, 2025 11:23am Chief Complaint Admit Date LT HIP/PT HAS [...] 1:30pm sob January 26, 2025 3:00a m S/P [facility] 01/24 ([facility]) January 31, 2025 1:42p m Reason for Visit Admit Date Aortic stenosis January 20, 2025 3:32a m Coronary artery disease January 20, 2025 3 :32am Elevated troponin January 20, 2025 3:32a m Hypertension January 20, 2025 3:32a m Acute hypoxemic respiratory failure January 20, 2025 3:32am Acute hypoxic on chronic hypercapnic res piratory failure January 20, 2025 3:32am CHF exacerbation January 20, 2025 3:32a m COPD exacerbation January 20, 2025 3:32a m Leukocytosis January 20, 2025 3:32a m Pneumonia January 20, 2025 3:32a m Lactic acidosis January 20, 2025 3:32a m Obesity (BMI 30.0-34.9) January 20, 2025 3 :32am Aortic stenosis January 31, 2025 1:42p m CHF (congestive heart failure) January 31, 2025 1:42pm Coronary artery disease January 31, 2025 1 :42pm Hyperlipidemia January 31, 2025 1:42p m Hypertension January 31, 2025 1:42p m Reason for Visit Admit Date Acute hypoxemic respiratory failure January 20, 2025 3:32am Acute hypoxic on chronic hypercapnic res piratory failure January 20, 2025 3:32am CHF exacerbation January 20, 2025 3:32a m COPD exacerbation January 20, 2025 3:32a m Leukocytosis January 20, 2025 3:32a m Pneumonia January 20, 2025 3:32a m Aortic stenosis January 20, 2025 3:32a m Coronary artery disease January 20, 2025 3 :32am Elevated troponin January 20, 2025 3:32a m Hypertension January 20, 2025 3:32a m Lactic acidosis January 20, 2025 3:32a m Obesity (BMI 30.0-34.9) January 20, 2025 3 :32am Aortic stenosis January 31, 2025 1:42p m CHF (congestive heart failure) January 31, 2025 1:42pm Coronary artery disease January 31, 2025 1 :42pm Hyperlipidemia January 31, 2025 1:42p m Hypertension January 31, 2025 1:42p m Acute hypoxemic respiratory failure February 04, 2025 10:52am Anemia February 04, 2025 10:52 am COPD with exacerbation February 04, 2025 10 :52am Elevated brain natriuretic peptide (BNP) level February 04, 2025 10:52am Elevated troponin February 04, 2025 10:52 am History of COPD February 04, 2025 10:52 am Hyperlipidemia February 04, 2025 10:52 am Hypertension February 04, 2025 10:52 am Type 2 diabetes mellitus February 04, 2025 10:52am Acute dyspnea February 09, 2025 3:00 pm COPD exacerbation February 09, 2025 3:00 pm Elevated troponin February 09, 2025 3:00 pm History of diabetes mellitus February 09, 2025 3:00pm Hypoxia February 09, 2025 3:00 pm History of acute heart failure January 3:00pm Chief Complaint Admit Date LT HIP/PT HAS [...] 1:30pm sob January 26, 2025 3:00a m S/P [facility] 01/24 ([facility]) January 31, 2025 1:42p m HYPOXIA, EXACERBATION OF COPD February 04, 2025 10:52am HYPOXIA, EXACERBATION OF COPD February 04, 2025 6:54pm HYPOXIA, EXACERBATION OF COPD February 05, 2025 2:42pm HYPOXIA, EXACERBATION OF COPD February 06, 2025 2:01pm EXACERBATION OF COPD, HYPOXIA February 09, 2025 3:00pm sob February 09, 2025 3:25 pm EXACERBATION OF COPD, HYPOXIA February 10, 2025 5:20pm EXACERBATION OF COPD, HYPOXIA February 11, 2025 4:21pm EXACERBATION OF COPD, HYPOXIA February 12, 2025 11:23am EXACERBATION OF COPD, HYPOXIA February 13, 2025 2:23pm ACUTE ON CHRONIC DEBILITY February 15 2:01pm Chief Complaint Admit Date LT HIP/PT HAS [...] 1:30pm sob January 26, 2025 3:00a m S/P [facility] 01/24 ([facility]) January 31, 2025 1:42p m HYPOXIA, EXACERBATION OF COPD February 04, 2025 10:52am HYPOXIA, EXACERBATION OF COPD February 04, 2025 6:54pm HYPOXIA, EXACERBATION OF COPD February 05, 2025 2:42pm HYPOXIA, EXACERBATION OF COPD February 06, 2025 2:01pm EXACERBATION OF COPD, HYPOXIA February 09, 2025 3:00pm sob February 09, 2025 3:25 pm EXACERBATION OF COPD, HYPOXIA February 10, 2025 5:20pm EXACERBATION OF COPD, HYPOXIA February 11, 2025 4:21pm EXACERBATION OF COPD, HYPOXIA February 12, 2025 11:23am EXACERBATION OF COPD, HYPOXIA February 13, 2025 2:23pm ACUTE ON CHRONIC DEBILITY February 15 2:01pm ACUTE ON CHRONIC DEBILITY February 16 8:29am ACUTE ON CHRONIC DEBILITY February 17 5:04pm Reason for Visit Admit Date Acute hypoxemic respiratory failure January 20, 2025 3:32am Acute hypoxic on chronic hypercapnic res piratory failure January 20, 2025 3:32am CHF exacerbation January 20, 2025 3:32a m COPD exacerbation January 20, 2025 3:32a m Leukocytosis January 20, 2025 3:32a m Pneumonia January 20, 2025 3:32a m Aortic stenosis January 20, 2025 3:32a m Coronary artery disease January 20, 2025 3 :32am Elevated troponin January 20, 2025 3:32a m Hypertension January 20, 2025 3:32a m Lactic acidosis January 20, 2025 3:32a m Obesity (BMI 30.0-34.9) January 20, 2025 3 :32am Aortic stenosis January 31, 2025 1:42p m CHF (congestive heart failure) January 31, 2025 1:42pm Coronary artery disease January 31, 2025 1 :42pm Hyperlipidemia January 31, 2025 1:42p m Hypertension January 31, 2025 1:42p m Acute hypoxemic respiratory failure February 04, 2025 10:52am Anemia February 04, 2025 10:52 am COPD with exacerbation February 04, 2025 10 :52am Elevated brain natriuretic peptide (BNP) level February 04, 2025 10:52am Elevated troponin February 04, 2025 10:52 am History of COPD February 04, 2025 10:52 am Hyperlipidemia February 04, 2025 10:52 am Hypertension February 04, 2025 10:52 am Type 2 diabetes mellitus February 04, 2025 10:52am Acute dyspnea February 09, 2025 3:00 pm COPD exacerbation February 09, 2025 3:00 pm Elevated troponin February 09, 2025 3:00 pm History of diabetes mellitus February 09, 2025 3:00pm Hypoxia February 09, 2025 3:00 pm History of acute heart failure January 3:00pm Debility February 15, 2025 2:01 pm Dyspnea February 15, 2025 2:01 pm Generalized weakness February 15, 2025 2:0 1pm Additional Source Comments INFORMATION SOURCE (unrecogn ized section and content) DATE CREATED AUTHOR 02/25/2018 [facility] DATE CREATED AUTHOR AUTHOR'S ORGANIZ ATION 05/08/[address] [facility] DATE CREATED AUTHOR AUTHOR'S ORGANIZ ATION 02/16/2025 [facility] Goals (unrecognized section and content) Goals [...] or prosecute any alcohol or drug abuse patient.[facility] the event this information is protected by the Federal Confidentiality of Alcohol and Drug Abuse Patient Records regulations: The Federal rules restrict any use of the information to criminally investigate or prosecute any alcohol or drug abuse patient.[facility] the event this information is protected by the Federal Confidentiality of Alcohol and Drug Abuse Patient Records regulations: The Federal rules restrict any use of the information to criminally investigate or prosecute any alcohol or drug abuse patient.[facility] the event this information is protected by the Federal Confidentiality of Alcohol and Drug Abuse Patient Records regulations: The Federal rules restrict any use of the information to criminally investigate or prosecute any alcohol or drug abuse patient.[facility] the event this information is protected by the Federal Confidentiality of Alcohol and Drug Abuse Patient Records regulations: The Federal rules restrict any use of the information to criminally investigate or prosecute any alcohol or drug abuse patient.[facility] Care Teams (unrecognized sec tion and [...] End: January 24, 2025 Dr. Jeevan Yoder DO Emergency Provider Active Start: January 20, 2025 End: January 24, 2025 Dr. Sandeep Carlton , Admit Provider Active Start: January 20, 2025 End: January 24, 2025 Dr. Sandeep Carlton DO Other Provider Active Start: January 20, 2025 End: January 24, 2025 Dr. Melba Hartmann MD Attending Provider Active Start: January 20, 2025 End: January 24, 2025 Dr. Lucio Borden , Other Provider Active S tart: January 20, [...] Start: January 21, 2025 Dr. Jeevan Yoder DO Emergency Provider Active Start: January 21, 2025 Dr. Sandeep Carlton , Admit Provider Active Start: January 21, 2025 Dr. Sandeep Carlton DO Other Provider Active Start: January 21, [...] January 22, 2025 Dr. Jeevan Yoder , DO Emergency Provider Active Start: January 22, 2025 [...] Provider Active Start: January 23, 2025 Dr. Mleba Hartmann MD Other Provider Active St art: [...] Admit Provider Active Start: January 23, 2025 DrJesus Carlton DO Other Provider Active Start: January 23, [...] January 24, 2025 Dr. Jeevan Yoder , Emergency Provider Active Start: January 24, 2025 Dr. Sandeep Carlton DO Admit Provider Active Start: January 24, 2025 Dr. Sandeep Carlton DO Other Provider Active Start: January 24, 2025 Dr. Melba Hartmann MD Attending Provider Active Start: January 24, 2025 Dr. Melba Hartmann MD Other Provider Active St art: January 24, 2025 Dr. 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 Cheryl Mendez DO Attending Provider, Referring P rovider Active Team [...] Provider A ctive Dr. Nestor Bartlett , DO Attending Provider, Other Provider Active Team Status: [...] DO Other Provider Active Dr. Nestor Bartlett DO Other Provider Active Dr. Sandeep Denson MD Attending Provider Active Team Status: Inactive Member Role Status Dates Dr. Ramone Smiley MD Primary Care Provider Active Dr. Winston Gill MD Attending Provider, Emergency Provider Active Team Status: Inactive Member Role Status Dates Dr. Ramone Smiley MD Primary Care Provider, Attending P laura Active Team Status: Active Member Role Status Dates Dr. Ramone Smiley MD Primary Care Provider Active Dr. Queta Cortez MD Emergency Provider Active Dr. Nestor Bartlett DO Admit Provider, Attending Provider Active Team Status: [...] Provider Active St art: January 19, 2025 Team Status: Inactive Member Role Status Dates Dr. Ramone Smiley MD Primary Care Provider Active Start: January 26, 2025 End: January 26, 2025 Dr. Jg Bryan DO Attending Provider Active Start: January 26, 2025 End: January 26, 2025 Dr. Jg Bryan DO Emergency Provider Active Start: January 26, 2025 End: January 26, 2025 Team Status: Inactive Member Role Status Dates Dr. Ramone Smiley MD Primary Care Provider Active Start: January 31, 2025 End: January 31, 2025 Dr. Ramone Smiley MD Referring Provider Active St art: January 31, 2025 End: January 31, 2025 Whitney Cao NP, [employer]VERTISING [employer]C Attending Provider Active Start: January 31, 2025 End: January 31, 2025 Team Status: Active Member Role Status Dates Dr. Ramone Smiley MD Primary Care Provider Active Start: February 04, 2025 Dr. Aj Holley MD Emergency Provider Active Start: February 04, 2025 Dr. Lucio Borden DO Admit Provider Active S tart: February 04, 2025 Dr. Lucio Borden DO Attending Provider Active Start: February 04, 2025 Team Status: Inactive Member Role Status Dates Dr. Ramone Smiley MD Primary Care Provider Active Start: February 04, 2025 End: February 06, 2025 Dr. Aj Holley MD Emergency Provider Active Start: February 04, 2025 End: February 06, 2025 Dr. Lucio Borden DO Admit Provider Active S tart: February 04, 2025 End: February 06, 2025 Dr. Lucio Borden DO Attending Provider Active Start: February 04, 2025 End: February 06, 2025 Team Status: Active Member Role Status Dates Dr. Ramone Smiley MD Primary Care Provider Active Start: February 05, 2025 Dr. Aj Holley MD Emergency Provider Active Start: February 05, 2025 Dr. Lucio Borden DO Admit Provider Active S tart: February 05, 2025 Dr. Lucio Borden DO Attending Provider Active Start: February 05, 2025 Dr. Lucio Borden DO Other Provider Active S tart: February 05, 2025 Team Status: Active Member Role Status Dates Dr. Ramone Smiley MD Primary Care Provider Active Start: February 04, 2025 Dr. Aj Holley MD Emergency Provider Active Start: February 04, 2025 Dr. Lucio Borden DO Admit Provider Active S tart: February 04, 2025 Dr. Lucio Borden DO Attending Provider Active Start: February 04, 2025 Dr. Lucio Borden DO Other Provider Active S tart: February 04, 2025 Team Status: Active Member Role Status Dates Dr. Ramone Smiley MD Primary Care Provider Active Start: February 06, 2025 Dr. Aj Holley MD Emergency Provider Active Start: February 06, 2025 Dr. Lucio Borden DO Admit Provider Active S tart: February 06, 2025 Dr. Lucio Borden DO Attending Provider Active Start: February 06, 2025 Dr. Lucio Borden DO Other Provider Active S tart: February 06, 2025 Team Status: Active Member Role Status Dates Dr. Ramone Smiley MD Primary Care Provider Active Start: February 07, 2025 Dr. Ramone Smiley MD Attending Provider Active St art: February 07, 2025 Dr. Ramone Smiley MD Referring Provider Active St art: February 07, 2025 Team Status: Active Member Role Status Dates Dr. Ramone Smiley MD Primary Care Provider Active Start: February 09, 2025 Dr. Jeremiah Corrales MD Emergency Provider Active S tart: February 09, 2025 Dr. Lucio Borden DO Admit Provider Active S tart: February 09, 2025 Dr. Lucio Borden DO Attending Provider Active Start: February 09, 2025 Team Status: Active Member Role Status Dates Dr. Ramone Smiley MD Primary Care Provider Active Start: February 09, 2025 Dr. Jeremiah Corrales MD Emergency Provider Active S tart: February 09, 2025 DAVY Huggins Attending Provider Active Sta rt: February 09, 2025 Team Status: Inactive Member Role Status Dates Dr. Ramone Smiley MD Primary Care Provider Active Start: February 09, 2025 End: February 13, 2025 Dr. Jeremiah Corrales MD Emergency Provider Active S tart: February 09, 2025 End: February 13, 2025 Dr. Lucio Borden , Admit Provider Active S tart: February 09, 2025 End: February 13, 2025 Dr. Lucio Borden DO Attending Provider Active Start: February 09, 2025 End: February 13, 2025 Team Status: Active Member Role Status Dates Dr. Ramone Smiley MD Primary Care Provider Active Start: February 10, 2025 Dr. Jeremiah Corrales MD Emergency Provider Active S tart: February 10, 2025 Dr. Lucio Borden DO Admit Provider Active S tart: February 10, 2025 Dr. Lucio Borden DO Attending Provider Active Start: February 10, 2025 Dr. Lucio Borden DO Other Provider Active S tart: February 10, 2025 Team Status: Active Member Role Status Dates Dr. Ramone Smiley MD Primary Care Provider Active Start: February 11, 2025 Dr. Jeremiah Corrales MD Emergency Provider Active S tart: February 11, 2025 Dr. Lucio Borden DO Admit Provider Active S tart: February 11, 2025 Dr. Lucio Borden DO Attending Provider Active Start: February 11, 2025 Dr. Lucio Borden DO Other Provider Active S tart: February 11, 2025 Team Status: Active Member Role Status Dates Dr. Ramone Smiley MD Primary Care Provider Active Start: February 12, 2025 Dr. Jeremiah Corrales MD Emergency Provider Active S tart: February 12, 2025 Dr. Lucio Borden DO Admit Provider Active S tart: February 12, 2025 Dr. Lucio Borden DO Attending Provider Active Start: February 12, 2025 Dr. Lucio Borden DO Other Provider Active S tart: February 12, 2025 Team Status: Inactive Member Role Status Dates Dr. Ramone Smiley MD Primary Care Provider Active Start: February 07, 2025 End: February 07, 2025 Dr. Ramone Smiley MD Attending Provider Active St art: February 07, 2025 End: February 07, 2025 Dr. Ramone Smiley MD Referring Provider Active St art: February 07, 2025 End: February 07, 2025 Team Status: Active Member Role Status Dates Dr. Ramone Smiley MD Primary Care Provider Active Start: February 13, 2025 Dr. Jeremiah Corrales MD Emergency Provider Active S tart: February 13, 2025 Dr. Lucio Borden , Admit Provider Active S tart: February 13, 2025 Dr. Lucio Borden DO Attending Provider Active Start: February 13, 2025 Dr. Lucio Borden DO Other Provider Active S tart: February 13, 2025 Team Status: Active Member Role Status Dates Dr. Ramone Smiley MD Primary Care Provider Active Start: February 15, 2025 Dr. Robert Allison DO Emergency Provider Active S tart: February 15, 2025 Dr. Nestor Bartlett DO Admit Provider Active Start: February 15, 2025 Dr. Nestor Bartlett DO Attending Provider Active Start: February 15, 2025 Team Status: Active Member Role Status Dates Dr. Ramone Smiley MD Primary Care Provider Active Start: February 09, 2025 Dr. Jeremiah Corrales MD Emergency Provider Active S tart: February 09, 2025 Dr. Lucio Borden DO Attending Provider Active Start: February 09, 2025 Team Status: Inactive Member Role Status Dates Dr. Ramone Smiley MD Primary Care Provider Active Start: February 15, 2025 End: February 17, 2025 Dr. Robert Allison DO Emergency Provider Active S tart: February 15, 2025 End: February 17, 2025 Dr. Nestor Bartlett DO Admit Provider Active Start: February 15, 2025 End: February 17, 2025 Dr. Nestor Bartlett DO Other Provider Active Start: February 15, 2025 End: February 17, 2025 Dr. Heydi Amaya MD Attending Provider Active Start: February 15, 2025 End: February 17, 2025 Team Status: Active Member Role Status Dates Dr. Ramone Smiley MD Primary Care Provider Active Start: February 16, 2025 Dr. Robert Allison DO Emergency Provider Active S tart: February 16, 2025 Dr. Nestor Bartlett DO Admit Provider Active Start: February 16, 2025 Dr. Nestor Bartlett DO Other Provider Active Start: February 16, 2025 Dr. Heydi Amaya MD Attending Provider Active Start: February 16, 2025 Dr. Heydi Amaya MD Other Provider Active Star t: February 16, 2025 Team Status: Active Member Role Status Dates Dr. Ramone Smiley MD Primary Care Provider Active Start: February 17, 2025 Dr. Robert Allison DO Emergency Provider Active S tart: February 17, 2025 Dr. Nestor Bartlett DO Admit Provider Active Start: February 17, 2025 Dr. Nestor Bartlett DO Other Provider Active Start: February 17, 2025 Dr. Heydi Amaya MD Attending Provider Active Start: February 17, 2025 Dr. Heydi Amaya MD Other Provider Active Star t: February 17, 2025 Reason for Visit (unrecogniz ed section [...] BE BASED ON THE PRIMARY CLINICAL RECORDS. [facility] [employer] [facility]. provides no warranty or guarantee of the accuracy or completeness of information in this document.
[2025-02-18 22:55] LABS: Anion Gap 11 (5-15); BUN 25 mg/dL (4-19); BUN/Creat Ratio 19.9 RATIO (10-20); Calcium,Total 10.7 mg/dL (7.6-11.0); Carbon Dioxide 28.1 mmol/L (21.0-32.0); Chloride 97 mmol/L (98-108); Creatinine, Serum 1.26 mg/dL (0.70-1.20); EST Glomerular Filtration Rate 43 (>60); Estimated Creatinine Clearance 34.58 ml/min (50-250); Glucose 174 mg/dL (70-99); Sodium Level 136 mmol/L (133-145)
[2025-02-18 23:05] LABS: Pro- Brain NATRIURETIC PEPTIDE 3811 pg/mL (<=1800)
[2025-02-18 23:39] LABS: Potassium 4.7 mmol/L (3.3-5.1)
[2025-02-19 00:22] VITALS: BP 128/70; PULSE 100; RESP 26; O2SAT 98
[2025-02-19 00:23] VITALS: BP 127/80; PULSE 100; RESP 16; TEMP 37.1; O2SAT 98
[2025-02-19 00:38] VITALS: BP 122/86; PULSE 98; RESP 22; TEMP 37.1; O2SAT 98
== END 2025-02-19 01:09 | disposition skilled nursing facility (03) ==
PROVIDERS: Emergency Provider Emergency Medicine; PCP Family Medicine; Visit Provider Emergency Medicine
DX: J44.1 Chronic obstructive pulmonary disease with (acute) exacerbation (principal); E11.22 Type 2 diabetes mellitus with diabetic chronic kidney disease; N18.30 Chronic kidney disease, stage 3 unspecified; Z87.891 Personal history of nicotine dependence; E78.5 Hyperlipidemia, unspecified; I12.9 Hypertensive chronic kidney disease with stage 1 through stage 4 chronic kidney disease, or unspecified chronic kidney disease; I25.10 Atherosclerotic heart disease of native coronary artery without angina pectoris; Z99.81 Dependence on supplemental oxygen; R06.02 Shortness of breath; K21.9 Gastro-esophageal reflux disease without esophagitis
CPT/HCPCS: 51702; 71045; 80048; 83880; 84132; 85025; 93005; 94640; 99285; A4216

== ENCOUNTER 2025-03-04 18:35 | Emergency (ER) | payer MEDICARE, SELFPAY ==
[2025-03-04 18:37] VITALS: BP 90/49; PULSE 98; RESP 18; TEMP 37; O2SAT 92
[2025-03-04 18:54] VITALS: BMI 28.0
--- NOTE | 2025-03-04 18:54 | CT_ITS ---
PROCEDURE: ABDOMEN/PELVIS W IV CONT ONLY 03/04/2025 REASON FOR EXAM: R FLANK PAIN TECHNIQUE: ABDOMEN/PELVIS W IV CONT ONLY Coronal and Sagittal reconstruction series were provided. One or more dose reduction techniques were used (e.g., Automated exposure control, adjustment of the mA and/or kV according to patient size, use of iterative reconstruction technique. RADIATION DOSE SUMMARY: CTDlvol: 30 mGy DLP: 848 mGycm COMPARISON: No FINDINGS: Bibasilar airspace disease more than typical for dependent atelectasis. Correlate for possible aspiration. Mildly enlarged heart. Numerous subcentimeter liver hypodensities favoring benign etiology. Multiple gallstones. Normal pancreas. 3 cm splenic hypodensity favoring cyst or hemangioma. Normal adrenal glands. Small simple right renal cyst. Bilateral renal calcifications possibly all representing vascular calcifications. No hydronephrosis or ureteral stone. Catheter tip in bladder lumen. Fibroid uterus. No retroperitoneal or pelvic adenopathy. Extensive aortoiliac calcifications. No free air. Nondistended bowel. Normal appendix. Moderate stool. Large rectal vault stool. Mild perirectal fat stranding. Replaced left hip joint. Lumbar spine degeneration. Pelvic stimulator. CT/Abdomen/Pelvis W IV Cont ONLY IMPRESSION: Possible aspiration pneumonia. 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 Reading Location: [place] [id number]
--- NOTE | 2025-03-04 18:55 | EKG12_ITS ---
Test Reason : WEAKNESS Blood Pressure : */* mmHG Vent. Rate : 89 BPM Atrial Rate : 89 BPM P-R Int : 150 ms QRS Dur : 76 ms QT Int : 350 ms P-R-T Axes : 64 18 70 degrees QTcB Int : 425 ms Normal sinus rhythm ST & T wave abnormality, consider lateral ischemia Abnormal ECG Confirmed by KELSEA LEARY, ANN ([id number]), pictures editor ATTILA ESPINO ([id number]) on 03/06/2025 10:56:56 AM Referred By: Confirmed By: ANN ENAMORADO MD
--- NOTE | 2025-03-04 18:56 | EX.ED.DYSGE1 ---
HPI History of Present Illness Chief Complaint: Serna C/O Narrative Narrative: Patient is a 80-year-old female with past medical history of diabetes, COPD chronically on 2 L nasal cannula, GERD, anxiety, depression, hyperlipidemia, neurogenic bladder self caths, aortic stenosis, chronic kidney disease stage III, peripheral arterial disease who presents to the emergency department with a chief complaint right flank pain and wanting her Serna catheter out. States that [facility] and states that she told the staff there that she self caths and wanted the Serna catheter removed and she was told that they do not remove Serna catheters therefore she came here for further evaluation management. Patient states that she has been having intermittent right-sided flank pain that comes and goes. Patient denies any injuries or trauma. Patient otherwise has no complaints and feels at her baseline. Patient denies any history of kidney stones. [facility] Medical History History of diabetes mellitus COPD exacerbation Hypoxia Elevated troponin Acute dyspnea Poor venous access Diabetic polyneuropathy Hypomagnesemia Debility Weakness Gastroenteritis Abscess Postmenopausal bleeding GERD (gastroesophageal reflux disease) COPD (chronic obstructive pulmonary disease) History of constipation Asthma Osteoporosis COPD with exacerbation Anemia History of COPD Elevated brain natriuretic peptide (BNP) level Elevated troponin Acute hypoxemic respiratory failure Obesity (BMI 30.0-34.9) Elevated troponin Lactic acidosis Fracture of hip, left, closed Coronary artery disease Paronychia of left index finger Vaginal cyst Anxiety Depression Irregular heart beat Multiple thyroid nodules Foraminal stenosis of lumbar region Lumbar spinal stenosis Diabetic retinopathy Colon polyp Thyroid goiter Hyperlipidemia Hypokalemia Microcytic anemia Neurogenic bladder Hypophosphatemia Hypercalcemia Former smoker UTI (urinary tract infection) Iron deficiency anemia Aortic stenosis Hyponatremia Urine retention Chronic renal failure, stage 3 (moderate) Cellulitis and abscess of finger, unspecified Retinopathy Peripheral artery disease Leg weakness, bilateral GERD (gastroesophageal reflux disease) Chronic idiopathic constipation COPD (chronic obstructive pulmonary disease) Polypharmacy Hypertension Carpal tunnel syndrome of right wrist Strain of right rotator cuff capsule Rhinitis Urinary retention with incomplete bladder emptying Vitamin D deficiency Asthma Pruritus Goiter, nontoxic, multinodular Anemia Diabetes Hx of venous thrombosis and embolism History of malignant neoplasm of breast Hypertension Type 2 diabetes mellitus Home Medications ?Medication ?Instructions ?Recorded ?Last Taken ?Type aspirin 81 mg chewable tablet 81 mg PO DAILY [facility] 01/21/16 01/15/25 History magnesium oxide 400 mg (241.3 mg 400 mg PO BID SUPPLEMENT 08/16/18 01/15/25 History magnesium) tablet metoprolol tartrate 25 mg tablet 25 mg PO BID BLOOD PRESSURE 08/16/18 01/15/25 History pantoprazole 40 mg tablet,delayed 40 mg PO DAILY ACID REFLUX 12/02/19 01/15/25 History release empagliflozin 10 mg tablet 10 mg PO DAILY DIABETES 10/18/20 01/15/25 History (Jardiance) sitagliptin phosphate 50 mg tablet 50 mg PO DAILY DIABETES 10/18/20 01/15/25 History (Januvia) multivitamin 1 tab PO DAILY VITAMIN 12/06/21 01/15/25 History pravastatin 20 mg tablet 20 mg PO DAILY CHOLESTEROL 12/06/21 01/15/25 History ascorbic acid (vitamin C) 250 mg 250 mg PO DAILY SUPPLEMENT 08/13/23 01/15/25 History tablet (Vitamin C) roflumilast 500 mcg tablet 500 mcg PO DAILY COPD 08/13/23 01/15/25 History insulin lispro 100 unit/mL 10 unit subcut TIDAC short acting 12/30/23 01/15/25 History subcutaneous pen (Humalog KwikPen insulin (U-100) Insulin) budesonide 160 mcg-glycopyr 9 2 inh inhalation BID breathing 01/07/25 01/15/25 History mcg-formot 4.8 mcg/actuation HFA inhaler (Breztri Aerosphere) diltiazem HCl 180 mg 180 mg PO DAILY heart 01/07/25 01/15/25 History capsule,extended release 24 hr, controlled insulin glargine 100 unit/mL (3 20 unit subcut BID diabetes 01/07/25 01/15/25 History mL) subcutaneous pen (Lantus Solostar U-100 Insulin) ipratropium bromide 21 mcg (0.03 1 - 2 spray intranasal Q6H PRN 01/07/25 Unknown History %) nasal spray allergy symptoms lancets 28 gauge (TRUEplus Lancets) 01/07/25 Unknown History acetaminophen 500 mg tablet 1,000 mg PO Q6H PRN Pain Score 1-3 01/15/25 Unknown History azelastine 137 mcg (0.1 %) nasal 1 - 2 spray intranasal BID nasal 01/15/25 01/15/25 History spray spray mecobalamin (vitamin B12) 1,000 1,000 mcg PO DAILY health 01/15/25 01/15/25 History mcg chewable tablet (B12 Active) maintenance menthol 0.44 %-zinc oxide 20.6 % 1 applic topical 4X/DAY PRN skin 01/15/25 Unknown History topical ointment (CalaSoothe) irritation netarsudil 0.02 %-latanoprost 1 drp EACH EYE DAILY eye drops 01/15/25 01/15/25 History 0.005 % eye drops (Rocklatan) psyllium husk 0.4 gram capsule 0.4 g PO DAILY constipation 01/15/25 01/15/25 History (Daily Fiber) tirzepatide 5 mg/0.5 mL 5 mg subcut QWEEK diabetes 01/15/25 Unknown History subcutaneous pen injector (Prabhu) potassium chloride 20 mEq 20 meq PO BID supplement 02/04/25 Unknown History tablet,extended release (K-Tab) furosemide 20 mg tablet (Lasix) 60 mg (3 x 20 mg) PO BID #180 tabs 02/06/25 Unknown Rx ipratropium 0.5 mg-albuterol 3 mg 3 ml inhalation Q6H.RT #120 amps 02/06/25 Unknown Rx (2.5 mg base)/3 mL nebulization soln sacubitril 24 mg-valsartan 26 mg 1 tab PO BID #60 tabs 02/07/25 Unknown Rx tablet (Entresto) albuterol sulfate 90 mcg/actuation 2 puff inhalation Q6H PRN 02/09/25 Unknown History aerosol inhaler shortness of breath or wheezing cetirizine 10 mg tablet 10 mg PO DAILY 02/09/25 Unknown History hydroxyzine HCl 25 mg tablet 12.5 mg PO QHS allergies 02/09/25 Unknown History gabapentin 100 mg capsule 100 mg PO QHS NERVE PAIN 3 days 02/17/25 Unknown Rx #3 caps guaifenesin 600 mg tablet, 600 mg PO BID #0 tabs 02/17/25 Unknown Rx extended release 12 hr (Mucinex) prednisone 20 mg tablet See Taper PO BREAKFAST #15 tabs 02/17/25 Unknown Rx ciprofloxacin HCl 500 mg tablet 500 mg PO Q12H 5 days #10 tabs 03/04/25 Unknown Rx Allergy/AdvReac Type Severity Reaction Status Date / Time adhesive tape (tape) Allergy NEEDS Verified 03/04/25 18:37 FOLLOW-UP cephalexin monohydrate (From Allergy Rash Verified 03/04/25 18:37 Keflex) clopidogrel bisulfate (From Allergy Other Verified 03/04/25 18:37 Plavix) amoxicillin AdvReac YEAST Verified 03/04/25 18:37 INFECTION Family History Daughter Breast cancer Father Hypertension Sister Cancer Kidney disease Mother Pancreatic cancer Surgical History History of left hip hemiarthroplasty S/P fine needle aspiration (~10/2020) H/O dilation and curettage (~07/10/20) History of Achilles tendon repair Retinopathy History of lumpectomy of left breast Social History household members: spouse Smoking Status: Former smoker alcohol intake: never substance use type: does not use caffeine: Yes what type of physical activity do you participate in: none seatbelt use: always do you feel safe at home: Yes additional social history: [employer]- retired ROS ROS ED ROS Narrative Constitutional: Denies any fevers, chills, headaches Cardiovascular: Denies chest pain Respiratory: Denies coughing wheezing shortness of breath Abdomen: Complains of right flank pain intermittently as noted above denies abdominal pain nausea vomit diarrhea : States that she wants her Serna catheter removed Neurological: Denies any new numbness, weakness, tingling Skin: Denies any rashes or lesions EXAM Physical Exam Narrative Exam Narrative: General: Patient lying in bed rest comfortably did not appear to be in acute distress Head: Atraumatic, normocephalic Eyes: PERRL bilaterally, EOMI blood, no conjunctival injection noted Neck: Soft, supple, trachea midline Cardiovascular: Regular rate and rhythm no murmurs gallops rubs noted Respiratory: Clear to auscultation bilaterally Abdomen: Soft, nondistended, no tenderness palpation Extremities: +4/5 strength noted in the bilateral upper and lower extremities, radial pulses +2/4 in the bilateral extremities Neurological: Patient following commands knew that she was at [facility] year is 2024 Skin: Warm, dry, intact no rashes or lesions noted Const Vital Signs: 03/04/25 18:37 03/04/25 19:04 03/04/25 20:03 Temperature 98.6 F 98.6 F Temperature Source Oral Oral Pulse Rate 98 87 Respiratory Rate 18 16 Blood Pressure 90/49 L 105/48 L Blood Pressure Mean 62 67 Pulse Ox 92 92 95 Oxygen Delivery Method Nasal Cannula Nasal Cannula Room Air Oxygen Flow Rate (L/min) 2 2 03/04/25 20:03 03/04/25 20:51 03/04/25 22:00 Temperature 98.3 F 98.2 F 98.2 F Temperature Source Oral Oral Oral Pulse Rate 88 89 86 Respiratory Rate 19 H 18 20 H Blood Pressure 120/44 L 116/53 L 120/64 Blood Pressure Mean 69 74 82 Pulse Ox 95 91 94 Oxygen Delivery Method Room Air Room Air Room Air Oxygen Flow Rate (L/min) 03/04/25 23:10 Temperature 98.0 F Temperature Source Pulse Rate 81 Respiratory Rate 16 Blood Pressure 135/80 H Blood Pressure Mean 98 Pulse Ox 95 Oxygen Delivery Method Oxygen Flow Rate (L/min) MDM MDM MDM Narrative Medical decision making narrative: Patient is a 80-year-old female who presented to the emergency department chief complaint of wanting her Serna catheter out and intermittent flank pain. On the differential diagnose includes but not limited to UTI, pyelonephritis, urolithiasis, AAA. Once workup is obtained and reviewed she will be reevaluated. Patient be given 1 L of IV fluids as there is concern that she does have a history of CHF with chronic kidney disease as well do not want to volume overload the patient. Her echocardiogram from 01/20/2025 reviewed showed ejection fraction of 35 to 40% with diastolic dysfunction and moderate global hypokinesis of the left ventricle as well. Patient's CBC reviewed showed no evidence leukocytosis white blood count normal 10.2, he was 10.1, platelet count of 334. Patient INR normal at 1, PT of 13.8. Patient sodium is 136, potassium normal at 5, creatinine was noted to be 1.29. Patient lactic acid was 2 normal, AST and ALT were 26 and 25 respectively. Patient's urinalysis showed 500 leukocyte esterase 25-50 white cells with 4+ bacteria this was sent for culture she was given a gram of Rocephin here in the emergency department she will be placed on ciprofloxacin. Patient CT ab pelvis with IV contrast showed possible aspiration pneumonia she does not have any respiratory symptoms therefore feel that this is less likely she has probable stercoral proctitis with moderate stool large rectal vault stool noted mild perirectal fat stranding. Did do a rectal exam here in the emergency department and the patient does not appear to be impacted she has soft stool in the rectal vault she had no pain on rectal exam this was soft brown stool no black no blood. At this point time the patient would like to go home at this point in time she will be given prescription for once again ciprofloxacin given her rash to Keflex. She will be encouraged to use MiraLAX twice a day for good bowel movements to clean out she was advised to follow-up with her doctor in outpatient setting return with worsening symptoms or concerns. She is agreeable this plan all course concerns answered she was discharged home in stable condition. Lab Data Labs: Laboratory Results - last 24 hr 03/04/25 03/04/25 19:15 19:55 WBC 7.2 RBC 3.71 L Hgb 10.1 L Hct 33.5 L MCV 90.3 MCH 27.2 MCHC 30.1 L RDW Std Deviation 52.9 H RDW Coeff of Vijay 16.2 H Plt Count 334 MPV 10.6 Immature Gran % (Auto) 0.700 Neut % (Auto) 66.1 Lymph % (Auto) 24.2 [place] % (Auto) 6.9 Eos % (Auto) 1.7 Baso % (Auto) 0.4 Absolute Neuts (auto) 4.8 Absolute Lymphs (auto) 1.75 Nucleated RBC % 0 PT 13.8 INR 1.0 APTT 25.2 Sodium 136 Potassium 5.0 Chloride 97 L Carbon Dioxide 29.0 Anion Gap 11 BUN 23 H Creatinine 1.29 H Estim Creat Clear Calc 32.46 L Est GFR (MDRD) Non-Af 42 L BUN/Creatinine Ratio 18.1 Glucose 116 H Lactic Acid 2.0 Calcium 10.7 Total Bilirubin 0.25 AST 26 ALT 25 Alkaline Phosphatase 79 Total Protein 6.9 Albumin 3.3 L Globulin 3.6 Albumin/Globulin Ratio 0.9 Urine Color Straw Urine Clarity Cloudy Urine pH 7.0 Ur Specific [place] 1.010 Urine Protein 100 H Urine Glucose (UA) 100 H Urine Ketones 5 H Urine Occult Blood 150 H Urine Nitrite Negative Urine Bilirubin Negative Urine Urobilinogen Normal Ur Leukocyte Esterase 500 H Urine RBC 0-5 SEEN Urine WBC 25-50 SEEN Ur Squamous Epith Cells 0-5 SEEN Amorphous Sediment 3+ Urine Bacteria 4+ Urine Mucus 0 SEEN Urine Yeast 2+ Radiography Diagnostic Testing: Clinical Impression(s) from Imaging Studies Abdomen/Pelvis CT 03/04/25 18:54 IMPRESSION: Possible aspiration pneumonia. 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 Reading Location: [place] [id number] Discharge Plan Triage Chief Complaint: Serna C/O ED Provider: Jeevan Yoder Dx/Rx/DC Orders Clinical Impression: Urinary tract infection, Self-catheterizes urinary bladder, Neurogenic bladder Prescriptions: New ciprofloxacin HCl 500 mg tablet 500 mg PO Q12H 5 Days Qty: 10 0RF No Action Januvia 50 mg tablet 50 mg PO DAILY Jardiance 10 mg tablet 10 mg PO DAILY multivitamin Tablet 1 tab PO DAILY pravastatin 20 mg tablet 20 mg PO DAILY aspirin 81 MG tablet,chewable 81 mg PO DAILY metoprolol tartrate 25 MG tablet 25 mg PO BID magnesium oxide 400 MG tablet 400 mg PO BID pantoprazole 40 MG tablet 40 mg PO DAILY roflumilast 500 mcg tablet 500 mcg PO DAILY ascorbic acid (vitamin C) [Vitamin C] 250 mg tablet 250 mg PO DAILY insulin lispro [Humalog KwikPen Insulin] 100 unit/mL Insulin Pen 10 unit subcut TIDAC Rx Instructions: Hold if glucose less than 120 mg/dl Mounjaro 5 mg/0.5 mL pen injector 5 mg subcut QWEEK Patient Comments: PT STATES SHE SOMETIMES TAKES IT ON THURSDAY, SOMETIMES ON FRIDAYS. menthol-zinc oxide [CalaSoothe] 0.44-20.6 % ointment 1 applic topical 4X/DAY PRN (Reason: skin irritation) psyllium husk [Daily Fiber] 0.4 gram capsule 0.4 g PO DAILY mecobalamin (vitamin B12) [B12 Active] 1,000 mcg tablet,chewable 1,000 mcg PO DAILY azelastine 137 mcg (0.1 %) spray,non-aerosol 1 - 2 spray INTRANASAL BID acetaminophen 500 mg Tablet 1,000 mg PO Q6H PRN (Reason: Pain Score 1-3) Rocklatan 0.02-0.005 % Drops 1 drp EACH EYE DAILY potassium chloride [K-Tab] 20 mEq tablet extended release 20 meq PO BID ipratropium-albuterol 0.5 mg-3 mg(2.5 mg base)/3 mL Solution For Nebulization 3 ml inhalation Q6H.RT Qty: 120 0RF furosemide [Lasix] 20 mg tablet 60 mg PO BID Qty: 180 0RF albuterol sulfate 90 mcg/actuation HFA aerosol inhaler 2 puff inhalation Q6H PRN (Reason: shortness of breath or wheezing) cetirizine 10 mg tablet 10 mg PO DAILY hydroxyzine HCl 25 mg tablet 12.5 mg PO QHS guaifenesin [Mucinex] 600 mg Tablet Extended Release 12hr 600 mg PO BID Qty: 0 0RF prednisone 20 mg Tablet See Taper PO BREAKFAST Qty: 15 0RF Taper: Prednisone Taper 40 mg WITH BREAKFAST for 3 Days and 0 Hour 30 mg WITH BREAKFAST for 3 Days and 0 Hour 20 mg WITH BREAKFAST for 3 Days and 0 Hour 10 mg WITH BREAKFAST for 3 Days and 0 Hour gabapentin 100 mg capsule 100 mg PO QHS 3 Days Qty: 3 0RF diltiazem HCl 180 mg capsule,ext.rel 24h degradable 180 mg PO DAILY ipratropium bromide 21 mcg (0.03 %) spray,non-aerosol 1 - 2 spray INTRANASAL Q6H PRN (Reason: allergy symptoms) insulin glargine [Lantus Solostar U-100 Insulin] 100 unit/mL (3 mL) insulin pen 20 unit subcut BID (DME) lancets [TRUEplus Lancets] 28 gauge misc MISCELLANEOUS Breztri Aerosphere 160-9-4.8 mcg/actuation HFA aerosol inhaler 2 inh inhalation BID Entresto 24-26 mg tablet 1 tab PO BID Qty: 60 11RF Primary Care Provider: Ramone Smiley Referrals: Ramone Smiley MD [Primary Care Provider] - Activity Restrictions/Additional Instructions: Follow-up with your doctor in outpatient setting. Follow-up and urine culture. Take antibiotic as prescribed sent to your pharmacy. Urinalysis did show evidence of infection. Take MiraLAX twice daily until you are having good bowel movements then you can reduce to once daily. Return with any other concerns or worsening symptoms Print Language: Cameroonian Disposition Disposition: Home, Self Care
[2025-03-04 19:04] VITALS: BP 105/48; PULSE 87; RESP 16; TEMP 37; O2SAT 92
--- OUTSIDE RECORDS SUMMARY | 2025-03-04 19:33 | XMS RPT_ITS | CCD ---
Author Organization [facility] Care Team Providers Care Office Machines Sales Representative Name Role Phone Zuleika Heaton Unavailable Unavailable LEE ALAMO Unavailable Unavailable PROVIDER, UNKNOWN Unavailable Unavailable Zuleika Heaton Unavailable Unavailable Dr. Ramone Smiley Primary Care Provider [phone] Dr. Ramone Smiley Referring Provider Dr. Michael [...] Provider Dr. Ramone Smiley Referring Provider DAVY Peck [...] Baljit LEARY, Dr. Pack Attending Provider Baljit LEAYR, Dr. Pack Referring Provider Carie RAYMUNDO, Dr. [...] Melba Gayle Other Provider Herrera LEARY, Dr. Hudson Attending Provider Baljit LEARY, Dr. Pack Primary Care Provider Baljit LEARY, Dr. Pack Attending Provider [phone] Baljit LEARY, Dr. Pack Referring Provider Irvin RAYMUNDO, Dr. Gregorio Emergency Provider Irvin RAYMUNDO, Dr. Gregorio Attending Provider Nash RIFLE CASE REPAIRER-C, Whitney Attending Provider Leydi LEARY, Dr. Rocha Emergency Provider Michi RAYMUNDO, Dr. Valdes Admit Provider Michi RAYMUNDO, Dr. Valdes Attending Provider Herrera LEARY, Dr. Hudson Attending Provider Antoni LEARY, Dr. Daniels Emergency Provider [phone] Tono Carbajal Attending Provider Keegan DO, Dr. Jones Emergency Provider [phone] Dhruv RAYMUNDO, Dr. Baez Admit Provider [phone] Dr. Nestor Bartlett DO Attending Provider Dhruv RAYMUNDO, Dr. Baez Other Provider Jose Luis LEARY, Dr. Soliz Attending Provider Jose Luis LEARY, Dr. Soliz Other Provider Taye LEARY, Billy Emergency Provider [phone] Smiley, Ramone Primary Care Unavailable Asha Anguiano Attending Unavailable Asha Anguiano Referring Unavailable Smiley, Ramone Primary Care Unavailable Kwaku Marcial Attending Unavailable Smiley, Ramone Primary Care Unavailable Jeevan Yoder Attending Unavailable Nestor Bartlett Admitting Unavailable Nestor Bartlett Consulting Unavailable Heydi Amaya Attending Unavailable Smiley, Ramone Primary Care Unavailable Smiley, Ramone Primary Care Unavailable Smiley, Ramone Attending Unavailable Smiley, Ramone Referring Unavailable Lucio Borden Attending Unavailable Lucio Borden Admitting Unavailable Smiley, Ramone Primary Care Unavailable Lucio Borden Admitting Unavailable Lucio Borden Attending Unavailable Smiley, Ramone Primary Care Unavailable Smiley, Ramone Primary Care Unavailable Ethan Darnell Attending Unavailable Reodica, Billy Referring Unavailable Smiley, Ramone Primary Care Unavailable Billy Kothari Attending Unavailable Reangela, Billy Attending Unavailable Smiley, Ramone Primary Care Unavailable Jg Bryan Attending Unavailable Smiley, Ramone Primary Care Unavailable Eshenaur PA, Ray Referring Unavailable Smiley, Ramone Primary Care Unavailable Eshenaur PA, Ray Attending Unavailable Smiley, Ramone Primary Care Unavailable Smiley, Ramone Attending Unavailable Smiley, Ramone Referring Unavailable Gabriel Byrd Referring Unavailable Smiley, Ramone Primary Care Unavailable Gabriel Byrd Attending Unavailable Lucio Borden Consulting Unavailable Lucio Borden Attending Unavailable Lucio Borden Admitting Unavailable Smiley, Ramone Primary Care Unavailable uLcio Borden Attending Unavailable Smiley, Ramone Primary Care Unavailable Smiley, Ramone Primary Care Unavailable Smiley, Ramone Attending Unavailable Smiley, Ramone Referring Unavailable Smiley, Ramone Primary Care Unavailable Sandeep Carlton Consulting Unavailable Sandeep Carlton Admitting Unavailable Melba Hartmann Attending Unavailable Lucio oBrden Consulting Unavailable Bel Sotoe Consulting Unavailgeremias Cao NP, Whitney Attending Unavailable Smiley, Ramone Primary Care Unavailable Smiley, Ramone Referring Unavailable Smiley, Ramone Primary Care Unavailable Smilye, Ramone Referring Unavailable Smiley, Ramone Attending Unavailable Lucio Borden Consulting Unavailable Lucio Borden Attending Unavailable Lucio Borden Admitting Unavailable Smiley, Ramone Primary Care Unavailable Sandeep Carlton Admitting Unavailable aSndeep Carlton Consulting Unavailable Melba Hartmann Attending Unavailable Smiley, Ramone Primary Care Unavailable Lucio Borden Consulting Unavailable Hugh Sotoapradee Consulting Unavailabl e Mary Kate, Melba Nalini Consulting Unavailable Sandeep Carlton Attending Unavailable Smiley, Ramone Primary Care Unavailable Marcelina Soto Attending UnavailNestor Vernon Admitting Unavailable Smiley, Ramone Primary Care Unavailable Nestor Bartlett Consulting Unavailable Heydi Amaya Attending Unavailable Heydi Amaya Consulting Unavailable Nestor Bartlett Attending Unavailable Becca Silverman Attending Unavailable Smiley, Ramone Primary Care Unavailable Smiley, Ramone Attending Unavailable Smiley, Ramone Referring Unavailable Nash RIFLE CASE REPAIRER, Whitney Referring Unavailable Nash RIFLE CASE REPAIRER, Whitney Attending Unavailable Smiley, Ramone Primary Care Unavailable Allergies Allergy Classification Reported Allergen(s) Allergy Type Date of Onset Reaction(s) Facility (20 sources) Adhesive Tape; Translations: [ADHESIVE TAPE] allergy to substance 5 NEEDS FOLLOW-UP [facility] Work Phone: [phone] Comment on above: CLOTH TAPE (20 sources) amoxicillin; Translations: [amoxicillin] drug allergy 5 yeast infection [facility] Work Phone: (2 sources) cephalexin drug allergy 5 [facility] Work Phone: (2 sources) clopidogrel drug allergy 5 [facility] Work Phone: (20 sources) Cephalexin; Translations: [cephalexin monohydrate] Drug Allergy 2 [facility] (20 sources) clopidogrel; Translations: [clopidogrel bisulfate] Drug Allergy 1 Hives [facility] Work Phone: (2 sources) cloth tap Allergy to substance 2 Other [facility] Work Phone: (5 sources) Cephalexin Drug Allergy [address] [facility] Work Phone: (5 sources) tape [Other] Propensity to adverse reactions [address] [facility] Medications Current Medications Medication Drug Class(es) Dates Sig (Normalized) Sig (Original) acetaminophen 325 mg / HYDROcodone bitartrate 5 mg oral tablet (20 sources) Opioid Agonist Start: 07-14-2022 take 1 tablet by mouth every six hours Hydrocodone-Aceta minophen Active 1 TABLET PO EVERY 6 HOURS 10 3 July 14, 2022 Start: 11-22-2018 End: 11-29-2018 [...] 19, 2018 1:00am October 26, 2018 1:09am [id number] actuat albuter ol 0.09 mg/actuat metered [...] AERS As needed - 90mcg/inh ALBUTEROL SULFATE [id number] Se Good MD Start: 08-29-2015 VENTOLIN HFA 1 08 (90 Base) MCG/ACT AERS As needed - 90mcg/inh ALBUTEROL SULFATE [id number] Se Good MD Start: 12-25-2014 End: 01-12-2018 [...] / ipratropium bromide 0.167 mg/ml inhalation solution (7 sources) Anticholinergic, beta2-Adrenergic Agonist Start: 02-06-2025 ascorbic [...] 2023 2:12pm take 1 tablet by martin th every week ascorbic acid, vitamin C, (VITAMIN [...] TABS One tablet by mouth daily ASPIRIN [id number] Kadie Álvarez RN Start: 08-23-2015 take 1 tablet by martin th once daily ASPIRIN 81 MG TABS One tablet by mouth daily ASPIRIN [id number] Kadie Álvarez RN take 1 tablet by [...] in each nostril twice daily AZELASTINE HCL [id number] Kadie Álvarez RN Start: 08-23-2015 take 1-2 spray(s) na deepali route twice daily ASTEPRO 0.15 % SOLN 1-2 sprays in each nostril twice daily AZELASTINE HCL [id number] Kadie Álvarez RN take 1-2 spray(s) na deepali route twice daily Azelastine 0.15 % (205.5 mcg) spry Indications: Other iron deficiency anemia Use 1-2 Sprays in each nostril twice daily. 0 Active Comment on above: Use 1-2 Sprays in ea ch nostril twice daily. Yuryonide-Formote rol (20 sources) Corticosteroid, beta2-Adrenergic Agonist Start: [...] MCG/ACT AERO 2 puffs daily BUDESONIDE-FORMOTEROL FUMARATE [id number] Kadie Álvarez RN Start: 08-23-2015 SYMBICORT 160- 4.5 MCG/ACT AERO 2 puffs daily BUDESONIDE-FORMOTEROL FUMARATE [id number] Kadie Álvarez RN take 1 puff(s) by in halation twice daily budesonide-formoterol (SYMBICORT) 160-4.5 mcg/actuation inhaler Indications: Other iron deficiency anemia Inhale 1 Puff as instructed twice daily. 0 Active Comment on above: Inhale 1 Puff as ins tructed twice daily. Mexhbxtgqy-Kmkboefp-Cvbfctig ol (14 sources) Corticosteroid, beta2-Adrenergic Agonist Start: 01-07-2025 Start: [...] 12:00am cetirizine hydrochloride 10 mg oral tablet (6 sources) Histamine-1 Receptor Antagonist Start: 02-09-2025 clindamycin [...] 01-07-2025 Start: 01-07-2025 take 1 capsule by [facility] every twenty-four hours Diltiazem Hcl 180 mg capsule,ext.rel 24h degradable Active mg PO January 07, 2025 12:00am Start: 08-16-2018 End: 01-07-2025 Start: 08-29-2015 [facility] DILT-XR 180 MG [id number] One tablet by mouth daily DILTIAZEM HCL [id number] Se Good MD Start: 08-29-2015 take 1 tablet by martin once daily DILT-XR 180 MG [id number] One tablet by mouth daily DILTIAZEM HCL [id number] Se Good MD Comment on above: Take [...] Start: 08-13-2023 take 1 capsule by mo [facility] at bedtime Gabapentin 100 mg capsule Active [...] 600 mg ext ended release oral tablet (2 sources) Start: 02-17-2025 hydrOXYzine hydrochloride 25 mg oral tablet (6 sources) Antihistamine Start: 02-09-2025 3 ml insulin glargine 100 un t/ml pen injector (14 sources) Insulin Analog Start: 01-07-2025 Start: 01-07-2025 [...] U SC THREE TIMES DAILY BEFORE MEALS 0 December 30, 2023 12:00am December 30, 2023 [...] 0.021 mg /actuat metered dose nasal spray (14 sources) Anticholinergic Start: 01-07-2025 Start: 01-07-2025 Ipratropium [...] twice daily. mecobalamin 1 mg chewable tablet (13 sources) Start: 01-15-2025 Menthol / Zinc Oxide [...] POWD 3 times daily with water PSYLLIUM [id number] Kadie Álvarez RN Roflumilast (20 sources) Phosphodiesterase [...] mg / valsartan 26 mg oral tablet (11 sources) Angiotensin 2 Receptor Jefe Start: 02-07-2025 Start: 01-24-2025 SITagliptin 50 mg oral tablet (20 sources) Dipeptidyl Peptidase 4 Inhibitor Start: 01-21-2016 End: 10-18-2020 Comment on above: Take 50 mg by mouth once daily. Tirzepatide (Mounjaro) 5 mg/0.5 mL pen injector (1 source) Start: 01-15-2025 Tirzepatide (Mounjaro) 5 mg/0.5 mL pen injector Active 5 mg SC EVERY WEEK January 15, 2025 12:00am Vitamin T-Oqthngcvvcee-Bqso ral (15 sources) Start: 12-02-2019 take 250 mg by mouth once daily Vitamin W-Axbeqtdhutqs-Vgv eral Active 250 MG PO DAILY December 02, 2019 11:46am Start: 12-02-2019 End: 07-18-2023 take 250 mg by mouth once daily Vitamin B-Bxkpvpyabqlo-Rykzyzk Discontinued 250 MG PO DAILY December 02, 2019 12:00am July 19, 2023 12:34am Start: 12-02-2019 End: 07-18-2023 take 250 mg by mouth once daily Vitamin E-Dqrdmudacczz-Czyrnzp Discontinued 250 MG PO DAILY December 01, 2019 11:00pm July 18, 2023 11:34pm Start: 12-02-2019 take 250 mg by mouth once daily Vitamin L-Zexoroweyxqk-Vafepxp Active 25 0 MG PO DAILY December 01, 2019 11:00pm Start: 12-02-2019 take 250 mg by mouth once daily Vitamin R-Mbqpsgjzrfgw-Vdfafvj Active 25 0 MG PO DAILY December [...] 6 HOURS as needed for pain 06 03December 03, 2021 December 06, 2021 12:00am December 07, 2021 12:06am amLODIPine 5 mg oral tablet (4 sources) Dihydropyridine Calcium Channel Jefe Start: 08-23-2015 End: 08-29-2015 take 1 tablet by mouth once daily AMLODIPINE BESYLATE 5 MG TABS One tablet by mouth daily AMLODIPINE BESYLATE [id number] Se Good MD apixaban 5 mg oral tablet (20 sources) Factor Xa Inhibitor Start: 01-15-2024 End: 01-07-2025 Start: 12-30-2023 End: 01-15-2024 azithromycin 250 mg oral tab let (15 sources) Macrolide Antimicrobial Start: 01-07-2025 End: 01-15-2025 [...] lower legs 1-2 times daily BETAMETHASONE DIPROPIONATE [id number] Kadie Álvarez RN Start: 08-23-2015 BETAMETHASONE DIPROPIONATE 0.05 % LOTN apply to lower legs 1-2 times daily BETAMETHASONE DIPROPIONATE [id number] Kadie Álvarez RN bisacodyl 10 mg rectal suppo sitory (20 sources) Stimulant Laxative Start: 12-30-2023 End: 01-15-2024 Start: 08-23-2015 take 1 tablet by martin once daily as needed BISACODYL EC 5 MG TBEC One tablet by mouth daily as needed BISACODYL [id number] Kadie Álvarez RN calcium carbonate (2 sources) Start: 08-23-2015 take 1 tablet by mouth once daily CALCIUM 600 600 MG TABS One tablet by mouth daily CALCIUM CARBONATE [id number] Kadie Álvarez RN Calcium Carbonate / vitamin D3 (5 sources) take 1 tablet by mouth once daily CALCIUM CARBONATE/VITAMIN D3 (CALCIUM 600 + D,3, ORAL) Indications: Other iron deficiency anemia Take 1 tablet by mouth once daily. 0 Active Comment on above: [facility]. chlorpheniramine maleate 4 mg oral tablet (2 sources) Histamine-1 Receptor Antagonist Start: 08-29-2015 CHLORPHENIRAMINE MALEATE 4 MG TABS As needed CHLORPHENIRAMINE MALEATE [id number] Se Good MD cholecalciferol 0.025 mg oral [...] once daily. ciprofloxacin 250 mg oral tablet (19 sources) Quinolone Antimicrobial Start: 023 End: COD LIVER OIL CAPS (7 sources) Start: 015 take 1 tablet by mouth once daily COD LIVER OIL CAPS One tablet by mouth daily COD LIVER OIL CAPS [id number] Kadie Álvarez RN take 1 capsule by mouth once neftaly ly Cod Liver Oil cap Indications: Other iron deficiency anemia Take 1 capsule by mouth once daily. 0 Active Comment on above: Take 1 capsule by mo [facility] once daily. Cod Liver Oil capsule (4 [...] 2:52pm docusate sodium 50 mg / sennosides, mcc 8.6 mg oral tablet (20 sources) Start: [...] 9:27am doxycycline monohydrate 100 mg oral capsule (15 sources) Tetracycline-class Drug Start: 05-30-2024 End: 01-07-2025 [...] Start: 08-13-2023 take 1 capsule by mo ut once daily Fiber Active 1 CAP PO [...] mg / spironolactone 25 mg oral tablet (6 sources) Thiazide Diuretic, Aldosterone Antagonist Start: 02-09-2025 [...] units SQ daily at bedtime INSULIN DETEMIR [id number] Mariana Finley RN Start: 08-23-2015 inject 28 [IU] by avila bcutaneous injection once daily LEVEMIR 100 UNIT/ML SOLN 28 units SQ daily INSULIN DETEMIR [id number] Kadie Álvarez RN Start: 08-23-2015 take 15 [IU] by subc utaneous injection once daily at bedtime LEVEMIR 100 UNIT/ML SOLN 15 units SQ daily at bedtime INSULIN DETEMIR [id number] Mariana Finley RN Start: 08-23-2015 take 28 [IU] by subc utaneous injection once daily LEVEMIR 100 UNIT/ML SOLN 28 units SQ daily INSULIN DETEMIR [id number] Kadie Álvarez RN inject 52 [IU] by [...] 130 mg/dl levoFLOXacin 750 mg oral tablet (12 sources) Quinolone Antimicrobial Start: 01-24-2025 End: 01-31-2025 linaclotide 0.29 mg oral capsule (2 sources) Guanylate Cyclase-C Agonist Start: 08-23-2015 take 1 tablet by mouth once daily LINZESS 290 MCG CAPS One tablet by mouth daily LINACLOTIDE [id number] Kadie Álvarez RN Start: 08-23-2015 take 1 tablet by martin th once daily LINZESS 290 MCG CAPS One tablet by mouth daily LINACLOTIDE 60230704599 Kadie Álvarez RN lisinopril 40 mg oral [...] One tablet by mouth daily MAGNESIUM CAPS [id number] Kadie Álvarez RN metFORMIN hydrochloride 1000 mg oral tablet (2 sources) Biguanide take 1 tablet by mouth twice daily GLUCOPHAGE 1000 MG TABS One tablet by mouth twice daily METFORMIN HCL [id number] Julita Chau RIFLE CASE REPAIRER metFORMIN hydrochloride 1000 mg / SITagliptin 50 mg oral tablet (4 sources) Biguanide, Dipeptidyl Peptidase 4 Inhibitor Start: 5 End: 5 take 1 tablet by mouth twice daily JANUMET 50-1000 MG TABS One tablet by mouth twice daily SITAGLIPTIN-METFORMI N HCL [id number] Se Good MD Start: 08-23-2015 End: 08-29-2015 take 1 tablet by mouth twice daily JANUMET 50-1000 MG TABS One tablet by mouth twice daily SITAGLIPTIN-METFORMIN HCL 24031300569 Se Good MD Start: 08-23-2015 take 1 tablet by martin th twice daily JANUMET 50-1000 MG TABS One tablet by mouth twice daily SITAGLIPTIN-METFORMIN HCL [id number] Kadie Álvarez RN miSOPROStol 0.2 mg oral [...] 07-30-2023 oxyCODONE hydrochloride 5 mg oral tablet (15 sources) Opioid Agonist Start: 12-30-2023 End: 01-15-2024 [...] on above: Take 2 tablets by mo ut twice daily. Potassium Chloride 20 MEQ Tab.Er.Prt [...] three times daily as needed PROMETHAZINE HCL 16559134090 Kadie Álvarez RN PSYLLIUM HUSK, BULK, MISC [...] One tablet by mouth daily RANITIDINE HCL [id number] Kadie Álvarez RN Comment on above: Take 300 mg by mouth once daily. sennosides, mcc 8.6 mg oral tablet (5 sources) take 1 tablet by mouth twice daily senna (SENNA LAXATIVE) 8.6 mg tab Take 8.6 mg by mouth twice daily. 0 Active Comment on above: Take 8.6 mg by mouth twice daily. sodium chloride 0.111 meq/ml nasal spray (5 sources) sodium chloride (SALINE MIST) 0.65 % nasal spray Use 1 Hunter in the nose as needed. 0 Active Comment on above: Use 1 Hunter in the n ose as needed. sucralfate [...] 1 TABLET PO TWICE A DAY 6 November 22, 2018 12:00am November 25, 2018 [...] End: 10-18-2020 Start: 01-24-2020 End: 10-18-2020 Tiotropium [place] (Spiriva With Handihaler) 18 mcg capsule, w/inhalation device Discontinued 1 NMA INHALATION NEEDED as needed for Sob &/Or Wheezing January 24, 2020 12:00am October 18, 2020 9:28am puncture 1 cap using device; one dose = 2 inhalations Start: 01-24-2020 End: 10-18-2020 Tiotropium [place] (Spiriva With Handihaler) 18 mcg capsule, w/inhalation device Discontinued 1 PUFF INHALATION NEEDED January 24, 2020 12:00am October 18, 2020 9:28am puncture 1 cap using device; one dose = 2 inhalations Start: 08-23-2015 SPIRIVA HANDIH ALER 18 MCG CAPS as needed TIOTROPIUM BROMIDE MONOHYDRATE [id number] Kadie Álvarez RN Start: 08-23-2015 SPIRIVA HANDIH ALER 18 MCG CAPS as needed TIOTROPIUM BROMIDE MONOHYDRATE [id number] Kadie Álvarez RN Start: 12-25-2014 End: 01-12-2018 [...] 10:27am triamcinolone acetonide 0.001 mg/mg topical ointment (14 sources) Corticosteroid Start: 01-07-2025 End: 01-15-2025 Vitamin E-Uzcxakelielb-Miixyli 500 MG tablet,chewable (2 sources) Start: 12-02-2019 End: 07-18-2023 Vitamin Q-Gtklresuuovx-Urdizkn 500 MG tablet,chewable Discontinued 250 mg PO DAILY December 02, 2019 12:00am July 19, 2023 12:34am Problems Active Problems Problem Classification Problem Date Documented Da te Episodic/Chronic Abdominal pain (5 sources) Abdominal pain; Translations: [Unspecified abdominal pain] 11-13-2006 Episodic Acute and unspecified renal failure (20 sources) Acute renal failure syndrome; Translations: [Acute kidney failure, unspecified] 12-02-2019 Episodic Acute bronchitis (14 sources) Acute exacerbation of chronic bronchitis; Translations: [...] on above: lumpectomy in 2003 Cardiac dysrhythmias (12 sources) Irregular heart beat; Translations: [Cardiac arrhythmia, [...] Coronary arteriosclerosis; Translations: [Atherosclerotic heart disease of [place] coronary artery without angina pectoris] Onset: 5 12-30-2023 Chronic Deficiency and other anemia (8 sources) Iron deficiency anemia due to blood loss; Translations: [Iron deficiency anemia secondary to blood loss (chronic)] Onset: 1 Chronic Deficiency and other anemia (19 sources) Anemia; Translations: [Anemia, unspecified] Onset: 6 [...] fatigue (20 sources) Asthenia; Translations: [Weakness] Onset: 5 07-19-2023 Episodic Menopausal disorders (20 sources) Postmenopausal bleeding; Translations: [Postmenopausal bleeding] 06-21-2020 Chronic Comment on above: TVUS showed [...] in Jul 2018....tubular adenoma Other circulatory disease (14 sources) H/O: heart disorder; Translations: [Personal history of other diseases of the circulatory system] 06-07-2024 Episodic Other circulatory disease (6 sources) H/O: heart failure; Translations: [Personal history [...] Chronic Other diseases of veins and lymphatics (14 sources) Difficult venous access; Translations: [Other specified disorders of veins] 01-01-2024 Episodic Other gastrointestinal disorders (5 sources) Malabsorption - iron; Translations: [Intestinal malabsorption, unspecified] Onset: 1 02-06-2021 Chronic Other gastrointestinal disorders (20 sources) H/O: gastrointestinal disease; Translations: [Personal history of other diseases of the digestive system] 01-24-2020 Episodic Other gastrointestinal disorders (14 sources) Acute constipation; Translations: [Constipation, unspecified] 06-07-2024 Episodic Other lower respiratory disease (20 sources) Dyspnea; Translations: [Shortness of breath] Onset: 5 08-23-2015 Episodic Other lower respiratory disease (14 sources) Cough; Translations: [Cough] 01-07-2025 Episodic Other lower respiratory disease (16 sources) History of chronic obstructive airway disease; Translations: [Personal history of other diseases of the respiratory system] 02-04-2025 Episodic Other lower respiratory disease (12 sources) Hypoxia; Translations: [Hypoxemia] 02-09-2025 Episodic Other lower respiratory disease (2 sources) Dyspnea, unspecified; Translations: [Dyspnea, unspecified] Onset: 5 Episodic Other lower respiratory disease (1 source) Shortness of breath; Translations: [Shortness of breath] Onset: 5 Episodic Other lower respiratory disease (1 source) Hypoxemia; Translations: [Hypoxemia] Onset: 5 Episodic Other nervous system disorders [...] Chronic Other nutritional; endocrine; and metabolic disorders (14 sources) Hypomagnesemia; Translations: [Hypomagnesemia] 12-30-2023 Chronic Other nutritional; endocrine; and metabolic disorders (20 sources) Obese class I; Translations: [Class 1 obesity] 01-20-2025 Chronic Other nutritional; endocrine; and metabolic disorders (20 sources) H/O: raised blood lipids; Translations: [Personal history of other endocrine, nutritional and metabolic disease] 01-28-2023 Episodic Other nutritional; endocrine; and metabolic disorders (12 sources) H/O: diabetes mellitus; Translations: [Personal history [...] 5 06-09-2005 Chronic Other upper respiratory disease (14 sources) Acute bronchospasm; Translations: [Acute bronchospasm] 06-07-2024 [...] Respiratory failure; insufficiency; arrest (adult) (20 sources) Rpfey-ka-nnwlbus respiratory failure; Translations: [Acute respiratory failure with [...] Onset: 9 12-27-2008 Chronic Superficial injury; contusion (20 sources) Contusion of hip; Translations: [Contusion of right hip, initial encounter] 08-15-2023 Episodic Thyroid disorders (20 sources) Goiter; Translations: [Nontoxic goiter, unspecified] Onset: 7 Chronic Unclassified (1 source) Acidosis, unspecified; Translations: [Acidosis, unspecified] Onset: 5 Unclassified (1 source) Obesity, class 1; Translations: [Obesity, class 1] Onset: 5 Past or Other Problems Problem Classification Problem [...] Episodic Fracture of neck of femur (hip) (19 sources) Closed fracture of hip; Translations: [Fracture of unspecified part of neck of left femur, initial encounter for closed fracture] Onset: 09-07-2024 12-27-2023 Episodic Mycoses (5 sources) Onychomycosis due to [...] Test Name Value Interpretation Reference Range Facility Basic Metabolic Profile (BMP )on 02-23-2025 BUN Normal 4-19 [facility] Comment on above: Result Comment: Canc elled via OM: Order cancelled - Patient discharged Performed By: #### L 500.2500, L100.0100 ####[facility] [id number] [place], [address] BUN/CRE Normal 10-20 [facility] Comment on above: Result Comment: Canc elled via OM: Order cancelled - Patient discharged Performed By: #### L 500.2500, L100.0100 ####[facility] [address] [place], [address] Calcium Normal 7.6-11.0 [facility] Comment on above: Result Comment: Canc elled via OM: Order cancelled - Patient discharged Performed By: #### L 500.2500, L100.0100 ####[facility] [address] [place], [address] CL Normal 98-108 [facility] Comment on above: Result Comment: Canc elled via OM: Order cancelled - Patient discharged Performed By: #### L 500.2500, L100.0100 ####[facility] [address] [place], [address] CO2 Normal 21.0-32.0 [facility] Comment on above: Result Comment: Canc elled via OM: Order cancelled - Patient discharged Performed By: #### L 500.2500, L100.0100 ####[facility] [address] [place], [address] CREAT,SERUM Normal 0.70-1.20 [facility] [facility] Comment on above: Result Comment: Canc elled via OM: Order cancelled - Patient discharged Performed By: #### L 500.2500, L100.0100 ####[facility] [address] [place], [address] eGFR Normal >60 [facility] Comment on above: Result Comment: Canc elled via OM: Order cancelled - Patient discharged Performed By: #### L 500.2500, L100.0100 ####[facility] [address] [place], [address] GAP Normal 5-15 [facility] Comment on above: Result Comment: Canc elled via OM: Order cancelled - Patient discharged Performed By: #### L 500.2500, L100.0100 ####[facility] [address] [place], [address] GLU Normal 70-99 [facility] Comment on above: Result Comment: Canc elled via OM: Order cancelled - Patient discharged Performed By: #### L 500.2500, L100.0100 ####[facility] [address] [place], [address] Potassium Normal 3.3-5.1 [facility] Comment on above: Result Comment: Canc elled via OM: Order cancelled - Patient discharged Performed By: #### L 500.2500, L100.0100 ####[facility] [address] [place], [address] Basic Metabolic Profile (BMP) Normal 133-145 [facility] Comment on above: Result Comment: Canc elled via OM: Order cancelled - Patient discharged Performed By: #### L 500.2500, L100.0100 ####[facility] [address] [place], [address] CBC W/Diff, Automatedon 06-2 Absolute Neut Normal 2.0-7.7 [facility] Comment on above: Result Comment: Canc elled via OM: Order cancelled - Patient discharged Performed By: #### L 500.2500, L100.0100 ####[facility] [address] [place], [address] HCT Normal 37-47 [facility] Comment on above: Result Comment: Canc elled via OM: Order cancelled - Patient discharged Performed By: #### L 500.2500, L100.0100 ####[facility] [address] [place], [address] HGB Normal 12.0-15.0 [facility] Comment on above: Result Comment: Canc elled via OM: Order cancelled - Patient discharged Performed By: #### L 500.2500, L100.0100 ####[facility] [address] [place], [address] MCH Normal 27.0-32.0 [facility] Comment on above: Result Comment: Canc elled via OM: Order cancelled - Patient discharged Performed By: #### L 500.2500, L100.0100 ####[facility] [address] [place], [address] MCHC Normal 32-36 [facility] Comment on above: Result Comment: Canc elled via OM: Order cancelled - Patient discharged Performed By: #### L 500.2500, L100.0100 ####[facility] [address] [place], [address] MCV Normal 81-99 [facility] Comment on above: Result Comment: Canc elled via OM: Order cancelled - Patient discharged Performed By: #### L 500.2500, L100.0100 ####[facility] [address] [place], [address] NEUT% Normal 47-70 [facility] Comment on above: Result Comment: Canc elled via OM: Order cancelled - Patient discharged Performed By: #### L 500.2500, L100.0100 ####[facility] [address] [place], [address] PLT Normal 150-450 [facility] Comment on above: Result Comment: Canc elled via OM: Order cancelled - Patient discharged Performed By: #### L 500.2500, L100.0100 ####[facility] [address] [place], [address] RBC Normal 4.2-5.4 [facility] Comment on above: Result Comment: Canc elled via OM: Order cancelled - Patient discharged Performed By: #### L 500.2500, L100.0100 ####[facility] [address] [place], [address] RDW CV Normal 11.6-14.6 [facility] Comment on above: Result Comment: Canc elled via OM: Order cancelled - Patient discharged Performed By: #### L 500.2500, L100.0100 ####[facility] [address] [place], [address] RDW SD Normal 35.1-43.9 [facility] Comment on above: Result Comment: Canc elled via OM: Order cancelled - Patient discharged Performed By: #### L 500.2500, L100.0100 ####[facility] [address] [place], [address] WBC Normal 4.4-11.0 [facility] Comment on above: Result Comment: Canc elled via OM: Order cancelled - Patient discharged Performed By: #### L 500.2500, L100.0100 ####[facility] [address] [place], [address] Basic Metabolic Profile (BMP )on 02-22-2025 BUN Normal 4-19 [facility] Comment on above: Result Comment: Canc elled via OM: Order cancelled - Patient discharged Performed By: #### L 500.2500, L100.0100 ####[facility] [address] [place], [address] BUN/CRE Normal 10-20 [facility] Comment on above: Result Comment: Canc elled via OM: Order cancelled - Patient discharged Performed By: #### L 500.2500, L100.0100 ####[facility] [address] [place], [address] Calcium Normal 7.6-11.0 [facility] Comment on above: Result Comment: Canc elled via OM: Order cancelled - Patient discharged Performed By: #### L 500.2500, L100.0100 ####[facility] [address] [place], [address] CL Normal 98-108 [facility] Comment on above: Result Comment: Canc elled via OM: Order cancelled - Patient discharged Performed By: #### L 500.2500, L100.0100 ####[facility] [address] [place], [address] CO2 Normal 21.0-32.0 [facility] Comment on above: Result Comment: Canc elled via OM: Order cancelled - Patient discharged Performed By: #### L 500.2500, L100.0100 ####[facility] [address] [place], [address] CREAT,SERUM Normal 0.70-1.20 [facility] Comment on above: Result Comment: Canc elled via OM: Order cancelled - Patient discharged Performed By: #### L 500.2500, L100.0100 ####[facility] [address] [place], [address] eGFR Normal >60 [facility] Comment on above: Result Comment: Canc elled via OM: Order cancelled - Patient discharged Performed By: #### L 500.2500, L100.0100 ####[facility] [address] [place], [address] GAP Normal 5-15 [facility] Comment on above: Result Comment: Canc elled via OM: Order cancelled - Patient discharged Performed By: #### L 500.2500, L100.0100 ####[facility] [address] [place], [address] GLU Normal 70-99 [facility] Comment on above: Result Comment: Canc elled via OM: Order cancelled - Patient discharged Performed By: #### L 500.2500, L100.0100 ####[facility] [address] [place], [address] Potassium Normal 3.3-5.1 [facility] Comment on above: Result Comment: Canc elled via OM: Order cancelled - Patient discharged Performed By: #### L 500.2500, L100.0100 ####[facility] [address] [place], [address] Basic Metabolic Profile (BMP) Normal 133-145 [facility] Comment on above: Result Comment: Canc elled via OM: Order cancelled - Patient discharged Performed By: #### L 500.2500, L100.0100 ####[facility] [address] [place], [address] CBC W/Diff, Automatedon 06-2 Absolute Neut Normal 2.0-7.7 [facility] Comment on above: Result Comment: Canc elled via OM: Order cancelled - Patient discharged Performed By: #### L 500.2500, L100.0100 ####[facility] [address] [place], [address] HCT Normal 37-47 [facility] Comment on above: Result Comment: Canc elled via OM: Order cancelled - Patient discharged Performed By: #### L 500.2500, L100.0100 ####[facility] [address] [place], [address] HGB Normal 12.0-15.0 [facility] Comment on above: Result Comment: Canc elled via OM: Order cancelled - Patient discharged Performed By: #### L 500.2500, L100.0100 ####[facility] [address] [place], [address] MCH Normal 27.0-32.0 [facility] Comment on above: Result Comment: Canc elled via OM: Order cancelled - Patient discharged Performed By: #### L 500.2500, L100.0100 ####[facility] [address] [place], [address] MCHC Normal 32-36 [facility] Comment on above: Result Comment: Canc elled via OM: Order cancelled - Patient discharged Performed By: #### L 500.2500, L100.0100 ####[facility] [address] [place], [address] MCV Normal 81-99 [facility] Comment on above: Result Comment: Canc elled via OM: Order cancelled - Patient discharged Performed By: #### L 500.2500, L100.0100 ####[facility] [address] [place], [address] NEUT% Normal 47-70 [facility] Comment on above: Result Comment: Canc elled via OM: Order cancelled - Patient discharged Performed By: #### L 500.2500, L100.0100 ####[facility] [address] [place], [address] PLT Normal 150-450 [facility] Comment on above: Result Comment: Canc elled via OM: Order cancelled - Patient discharged Performed By: #### L 500.2500, L100.0100 ####[facility] [address] [place], [address] RBC Normal 4.2-5.4 [facility] Comment on above: Result Comment: Canc elled via OM: Order cancelled - Patient discharged Performed By: #### L 500.2500, L100.0100 ####[facility] [address] [place], [address] RDW CV Normal 11.6-14.6 [facility] Comment on above: Result Comment: Canc elled via OM: Order cancelled - Patient discharged Performed By: #### L 500.2500, L100.0100 ####[facility] [address] [place], [address] RDW SD Normal 35.1-43.9 [facility] Comment on above: Result Comment: Canc elled via OM: Order cancelled - Patient discharged Performed By: #### L 500.2500, L100.0100 ####[facility] [address] [place], [address] WBC Normal 4.4-11.0 [facility] Comment on above: Result Comment: Canc elled via OM: Order cancelled - Patient discharged Performed By: #### L 500.2500, L100.0100 ####[facility] [address] [place], [address] Basic Metabolic Profile (BMP )on 02-21-2025 BUN Normal 4-19 [facility] Comment on above: Result Comment: Canc elled via OM: Order cancelled - Patient discharged Performed By: #### L 500.2500, L100.0100 ####[facility] [address] [place], [address] BUN/CRE Normal 10-20 [facility] Comment on above: Result Comment: Canc elled via OM: Order cancelled - Patient discharged Performed By: #### L 500.2500, L100.0100 ####[facility] [address] [place], [address] Calcium Normal 7.6-11.0 [facility] Comment on above: Result Comment: Canc elled via OM: Order cancelled - Patient discharged Performed By: #### L 500.2500, L100.0100 ####[facility] [address] [place], [address] CL Normal 98-108 [facility] Comment on above: Result Comment: Canc elled via OM: Order cancelled - Patient discharged Performed By: #### L 500.2500, L100.0100 ####[facility] [address] [place], [address] CO2 Normal 21.0-32.0 [facility] Comment on above: Result Comment: Canc elled via OM: Order cancelled - Patient discharged Performed By: #### L 500.2500, L100.0100 ####[facility] [address] [place], [address] CREAT,SERUM Normal 0.70-1.20 [facility] Comment on above: Result Comment: Canc elled via OM: Order cancelled - Patient discharged Performed By: #### L 500.2500, L100.0100 ####[facility] [address] [place], [address] eGFR Normal >60 [facility] Comment on above: Result Comment: Canc elled via OM: Order cancelled - Patient discharged Performed By: #### L 500.2500, L100.0100 ####[facility] [address] [place], [address] GAP Normal 5-15 [facility] Comment on above: Result Comment: Canc elled via OM: Order cancelled - Patient discharged Performed By: #### L 500.2500, L100.0100 ####[facility] [address] [place], [address] GLU Normal 70-99 [facility] Comment on above: Result Comment: Canc elled via OM: Order cancelled - Patient discharged Performed By: #### L 500.2500, L100.0100 ####[facility] [address] [place], [address] Potassium Normal 3.3-5.1 [facility] Comment on above: Result Comment: Canc elled via OM: Order cancelled - Patient discharged Performed By: #### L 500.2500, L100.0100 ####[facility] [address] [place], [address] Basic Metabolic Profile (BMP) Normal 133-145 [facility] Comment on above: Result Comment: Canc elled via OM: Order cancelled - Patient discharged Performed By: #### L 500.2500, L100.0100 ####[facility] [address] [place], [address] CBC W/Diff, Automatedon 06-2 Absolute Neut Normal 2.0-7.7 [facility] Comment on above: Result Comment: Canc elled via OM: Order cancelled - Patient discharged Performed By: #### L 500.2500, L100.0100 ####[facility] [address] [place], [address] HCT Normal 37-47 [facility] Comment on above: Result Comment: Canc elled via OM: Order cancelled - Patient discharged Performed By: #### L 500.2500, L100.0100 ####[facility] [address] [place], [address] HGB Normal 12.0-15.0 [facility] Comment on above: Result Comment: Canc elled via OM: Order cancelled - Patient discharged Performed By: #### L 500.2500, L100.0100 ####[facility] [address] [place], [address] MCH Normal 27.0-32.0 [facility] Comment on above: Result Comment: Canc elled via OM: Order cancelled - Patient discharged Performed By: #### L 500.2500, L100.0100 ####[facility] [address] [place], [address] MCHC Normal 32-36 [facility] Comment on above: Result Comment: Canc elled via OM: Order cancelled - Patient discharged Performed By: #### L 500.2500, L100.0100 ####[facility] [address] [place], [address] MCV Normal 81-99 [facility] Comment on above: Result Comment: Canc elled via OM: Order cancelled - Patient discharged Performed By: #### L 500.2500, L100.0100 ####[facility] [address] [place], [address] NEUT% Normal 47-70 [facility] Comment on above: Result Comment: Canc elled via OM: Order cancelled - Patient discharged Performed By: #### L 500.2500, L100.0100 ####[facility] [address] [place], [address] PLT Normal 150-450 [facility] Comment on above: Result Comment: Canc elled via OM: Order cancelled - Patient discharged Performed By: #### L 500.2500, L100.0100 ####[facility] [address] [place], [address] RBC Normal 4.2-5.4 [facility] Comment on above: Result Comment: Canc elled via OM: Order cancelled - Patient discharged Performed By: #### L 500.2500, L100.0100 ####[facility] [address] [place], [address] RDW CV Normal 11.6-14.6 [facility] Comment on above: Result Comment: Canc elled via OM: Order cancelled - Patient discharged Performed By: #### L 500.2500, L100.0100 ####[facility] [address] [place], [address] RDW SD Normal 35.1-43.9 [facility] Comment on above: Result Comment: Canc elled via OM: Order cancelled - Patient discharged Performed By: #### L 500.2500, L100.0100 ####[facility] [address] [place], [address] WBC Normal 4.4-11.0 [facility] Comment on above: Result Comment: Canc elled via OM: Order cancelled - Patient discharged Performed By: #### L 500.2500, L100.0100 ####[facility] [address] [place], [address] Basic Metabolic Profile (BMP )on 02-20-2025 BUN Normal 4-19 [facility] Comment on above: Result Comment: Canc elled via OM: Order cancelled - Patient discharged Performed By: #### L 100.0100, L500.2500 ####[facility] [address] [place], [address] BUN/CRE Normal 10-20 [facility] Comment on above: Result Comment: Canc elled via OM: Order cancelled - Patient discharged Performed By: #### L 100.0100, L500.2500 ####[facility] [address] [place], [address] Calcium Normal 7.6-11.0 [facility] Comment on above: Result Comment: Canc elled via OM: Order cancelled - Patient discharged Performed By: #### L 100.0100, L500.2500 ####[facility] [address] [place], [address] CL Normal 98-108 [facility] Comment on above: Result Comment: Canc elled via OM: Order cancelled - Patient discharged Performed By: #### L 100.0100, L500.2500 ####[facility] [address] [place], [address] CO2 Normal 21.0-32.0 [facility] Comment on above: Result Comment: Canc elled via OM: Order cancelled - Patient discharged Performed By: #### L 100.0100, L500.2500 ####[facility] [address] [place], [address] CREAT,SERUM Normal 0.70-1.20 [facility] Comment on above: Result Comment: Canc elled via OM: Order cancelled - Patient discharged Performed By: #### L 100.0100, L500.2500 ####[facility] [address] [place], [address] eGFR Normal >60 [facility] Comment on above: Result Comment: Canc elled via OM: Order cancelled - Patient discharged Performed By: #### L 100.0100, L500.2500 ####[facility] [address] [place], [address] GAP Normal 5-15 [facility] Comment on above: Result Comment: Canc elled via OM: Order cancelled - Patient discharged Performed By: #### L 100.0100, L500.2500 ####[facility] [address] [place], [address] GLU Normal 70-99 [facility] Comment on above: Result Comment: Canc elled via OM: Order cancelled - Patient discharged Performed By: #### L 100.0100, L500.2500 ####[facility] [address] [place], [address] Potassium Normal 3.3-5.1 [facility] Comment on above: Result Comment: Canc elled via OM: Order cancelled - Patient discharged Performed By: #### L 100.0100, L500.2500 ####[facility] [address] [place], [address] Basic Metabolic Profile (BMP) Normal 133-145 [facility] Comment on above: Result Comment: Canc elled via OM: Order cancelled - Patient discharged Performed By: #### L 100.0100, L500.2500 ####[facility] [address] [place], [address] Bedside Glucoseon 02-20-2025 FINGERSTICK GLU 385 mg/dL High 74-106 [facility] Comment on above: Result Comment: KATARINA GARY OF PATIENT CARE PER NURSING PROTOCOL Performed By: #### L 501.080 ####[facility] [address] [place], [address] FINGERSTICK GLU 419 mg/dL High 74-106 [facility] Comment on above: Result Comment: KATARINA GARY OF PATIENT CARE PER NURSING PROTOCOL Performed By: #### L 501.080 ####[facility] [address] [place], [address] CBC W/Diff, Automatedon 06-2 Absolute Neut Normal 2.0-7.7 [facility] Comment on above: Result Comment: Canc elled via OM: Order cancelled - Patient discharged Performed By: #### L 100.0100, L500.2500 ####[facility] [address] [place], [address] HCT Normal 37-47 [facility] Comment on above: Result Comment: Canc elled via OM: Order cancelled - Patient discharged Performed By: #### L 100.0100, L500.2500 ####[facility] [address] [place], [address] HGB Normal 12.0-15.0 [facility] Comment on above: Result Comment: Canc elled via OM: Order cancelled - Patient discharged Performed By: #### L 100.0100, L500.2500 ####[facility] [address] [place], [address] MCH Normal 27.0-32.0 [facility] Comment on above: Result Comment: Canc elled via OM: Order cancelled - Patient discharged Performed By: #### L 100.0100, L500.2500 ####[facility] [address] [place], [address] MCHC Normal 32-36 [facility] Comment on above: Result Comment: Canc elled via OM: Order cancelled - Patient discharged Performed By: #### L 100.0100, L500.2500 ####[facility] [address] [place], [address] MCV Normal 81-99 [facility] Comment on above: Result Comment: Canc elled via OM: Order cancelled - Patient discharged Performed By: #### L 100.0100, L500.2500 ####[facility] [address] [place], [address] NEUT% Normal 47-70 [facility] Comment on above: Result Comment: Canc elled via OM: Order cancelled - Patient discharged Performed By: #### L 100.0100, L500.2500 ####[facility] [address] [place], [address] PLT Normal 150-450 [facility] Comment on above: Result Comment: Canc elled via OM: Order cancelled - Patient discharged Performed By: #### L 100.0100, L500.2500 ####[facility] [address] [place], [address] RBC Normal 4.2-5.4 [facility] Comment on above: Result Comment: Canc elled via OM: Order cancelled - Patient discharged Performed By: #### L 100.0100, L500.2500 ####[facility] [address] [place], [address] RDW CV Normal 11.6-14.6 [facility] Comment on above: Result Comment: Canc elled via OM: Order cancelled - Patient discharged Performed By: #### L 100.0100, L500.2500 ####[facility] [address] [place], [address] RDW SD Normal 35.1-43.9 [facility] Comment on above: Result Comment: Canc elled via OM: Order cancelled - Patient discharged Performed By: #### L 100.0100, L500.2500 ####[facility] [address] [place], [address] WBC Normal 4.4-11.0 [facility] Comment on above: Result Comment: Canc elled via OM: Order cancelled - Patient discharged Performed By: #### L 100.0100, L500.2500 ####[facility] [address] [place], [address] Basic Metabolic Profile (BMP )on 02-19-2025 BUN Normal 4-19 [facility] Comment on above: Result Comment: Canc elled via OM: Order cancelled - Patient discharged Performed By: #### L 500.2500, L100.0100 ####[facility] [address] [place], [address] BUN/CRE Normal 10-20 [facility] Comment on above: Result Comment: Canc elled via OM: Order cancelled - Patient discharged Performed By: #### L 500.2500, L100.0100 ####[facility] [address] [place], [address] Calcium Normal 7.6-11.0 [facility] Comment on above: Result Comment: Canc elled via OM: Order cancelled - Patient discharged Performed By: #### L 500.2500, L100.0100 ####[facility] [address] [place], [address] CL Normal 98-108 [facility] Comment on above: Result Comment: Canc elled via OM: Order cancelled - Patient discharged Performed By: #### L 500.2500, L100.0100 ####[facility] [address] [place], [address] CO2 Normal 21.0-32.0 [facility] Comment on above: Result Comment: Canc elled via OM: Order cancelled - Patient discharged Performed By: #### L 500.2500, L100.0100 ####[facility] [address] [place], [address] CREAT,SERUM Normal 0.70-1.20 [facility] Comment on above: Result Comment: Canc elled via OM: Order cancelled - Patient discharged Performed By: #### L 500.2500, L100.0100 ####[facility] [address] [place], [address] eGFR Normal >60 [facility] Comment on above: Result Comment: Canc elled via OM: Order cancelled - Patient discharged Performed By: #### L 500.2500, L100.0100 ####[facility] [address] [place], [address] GAP Normal 5-15 [facility] Comment on above: Result Comment: Canc elled via OM: Order cancelled - Patient discharged Performed By: #### L 500.2500, L100.0100 ####[facility] [address] [place], [address] GLU Normal 70-99 [facility] Comment on above: Result Comment: Canc elled via OM: Order cancelled - Patient discharged Performed By: #### L 500.2500, L100.0100 ####[facility] [address] [place], [address] Potassium Normal 3.3-5.1 [facility] Comment on above: Result Comment: Canc elled via OM: Order cancelled - Patient discharged Performed By: #### L 500.2500, L100.0100 ####[facility] [address] [place], [address] Basic Metabolic Profile (BMP) Normal 133-145 [facility] Comment on above: Result Comment: Canc elled via OM: Order cancelled - Patient discharged Performed By: #### L 500.2500, L100.0100 ####[facility] [address] [place], [address] CBC W/Diff, Automatedon 06-2 Absolute Neut Normal 2.0-7.7 [facility] Comment on above: Result Comment: Canc elled via OM: Order cancelled - Patient discharged Performed By: #### L 500.2500, L100.0100 ####[facility] [address] [place], [address] HCT Normal 37-47 [facility] Comment on above: Result Comment: Canc elled via OM: Order cancelled - Patient discharged Performed By: #### L 500.2500, L100.0100 ####[facility] [address] [place], [address] HGB Normal 12.0-15.0 [facility] Comment on above: Result Comment: Canc elled via OM: Order cancelled - Patient discharged Performed By: #### L 500.2500, L100.0100 ####[facility] [address] [place], [address] MCH Normal 27.0-32.0 [facility] Comment on above: Result Comment: Canc elled via OM: Order cancelled - Patient discharged Performed By: #### L 500.2500, L100.0100 ####[facility] [address] [place], [address] MCHC Normal 32-36 [facility] Comment on above: Result Comment: Canc elled via OM: Order cancelled - Patient discharged Performed By: #### L 500.2500, L100.0100 ####[facility] [address] [place], [address] MCV Normal 81-99 [facility] Comment on above: Result Comment: Canc elled via OM: Order cancelled - Patient discharged Performed By: #### L 500.2500, L100.0100 ####[facility] [address] [place], [address] NEUT% Normal 47-70 [facility] Comment on above: Result Comment: Canc elled via OM: Order cancelled - Patient discharged Performed By: #### L 500.2500, L100.0100 ####[facility] [address] [place], [address] PLT Normal 150-450 [facility] Comment on above: Result Comment: Canc elled via OM: Order cancelled - Patient discharged Performed By: #### L 500.2500, L100.0100 ####[facility] [address] [place], [address] RBC Normal 4.2-5.4 [facility] Comment on above: Result Comment: Canc elled via OM: Order cancelled - Patient discharged Performed By: #### L 500.2500, L100.0100 ####[facility] [address] [place], [address] RDW CV Normal 11.6-14.6 [facility] Comment on above: Result Comment: Canc elled via OM: Order cancelled - Patient discharged Performed By: #### L 500.2500, L100.0100 ####[facility] [address] [place], [address] RDW SD Normal 35.1-43.9 [facility] Comment on above: Result Comment: Canc elled via OM: Order cancelled - Patient discharged Performed By: #### L 500.2500, L100.0100 ####[facility] [address] [place], [address] WBC Normal 4.4-11.0 [facility] Comment on above: Result Comment: Canc elled via OM: Order cancelled - Patient discharged Performed By: #### L 500.2500, L100.0100 ####[facility] [address] [place], [address] 12 Lead EKGon 02-18-2025 12 Lead EKG Normal [facility] Absolute lymphocyte countOrd ered By: Billy Kothari on 02-18-2025 Lymphocytes Auto (Unsp spec) [#/Vol] 1.53 10*3/uL 0.83-4.51 [facility] Anion gap in Serum or Plasma Ordered By: Billy Kothari on 02-18-2025 Anion gap [Moles/Vol] 11 mmol/L 5-15 [facility] Automated lymphocyte count a s percentage of total leukocytesOrdered By: Billy Kothari on 02-18-2025 Lymphocytes/100 WBC Auto (Unsp spec) 12.5 % Low 19-41 [facility] BUN/creatinine ratioOrdered By: Billy Kothari on 02-18-2025 Urea nitrogen/Creatinine [Mass ratio] 19.9 mg/mg - [facility] Basic Metabolic Profile (BMP )on 02-18-2025 BUN/CRE 19.9 RATIO Normal - [facility] Comment on above: Performed By: #### L 500.2500, L100.0100 ####[facility] [address] [place], [address] Calcium [Mass/Vol] 10.7 mg/dL Normal 7.6-11.0 [facility] Comment on above: Performed By: #### L 500.2500, L100.0100 ####[facility] [address] [place], [address] Chloride [Moles/Vol] 97 mmol/L Low 98-108 [facility] Comment on above: Performed By: #### L 500.2500, L100.0100 ####[facility] [address] [place], [address] CO2 [Moles/Vol] 28.1 mmol/L Normal 21.0-32.0 [facility] Comment on above: Performed By: #### L 500.2500, L100.0100 ####[facility] [address] [place], [address] Creatinine [Mass/Vol] 1.26 mg/dL High 0.70-1.20 [facility] Comment on above: Performed By: #### L 500.2500, L100.0100 ####[facility] [address] [place], [address] ECRCL 34.58 ml/min Low 50-250 [facility] Comment on above: Performed By: #### L 500.2500, L100.0100 ####[facility] [address] [place], [address] GAP 11 Normal 5-15 [facility] Comment on above: Performed By: #### L 500.2500, L100.0100 ####[facility] [address] [place], [address] GFR/1.73 sq M.predicted among non-blacks MDRD (S/P/Bld) [Vol rate/Area] 43 mL/min/{1.73_m2} Low >60 [facility] Comment on above: Result Comment: mL/m in/1.73m2 CKD-EPI Creatinine Equation (2020) Performed By: #### L 500.2500, L100.0100 ####[facility] [address] [place], [address] Glucose [Mass/Vol] 174 mg/dL High 70-99 [facility] Comment on above: Performed By: #### L 500.2500, L100.0100 ####[facility] [address] [place], [address] Potassium [Moles/Vol] 6.0 mmol/L Invalid Interpretation Code 3.3-5.1 [facility] Comment on above: Result Comment: Hemo lysis present, Results??could be affected.??Critical Result(s) Called EFINK at: 2254 by:VIET??Results read back by same.Hemolysis present, Results??could be affected.?? Performed By: #### L 500.2500, L100.0100 ####[facility] [address] [place], [address] Sodium [Moles/Vol] 136 mmol/L Normal 133-145 [facility] Comment on above: Performed By: #### L 500.2500, L100.0100 ####[facility] [address] [place], [address] Urea nitrogen [Mass/Vol] 25 mg/dL High 4-19 [facility] Comment on above: Performed By: #### L 500.2500, L100.0100 ####[facility] [address] [place], [address] BUN Normal 4-19 [facility] Comment on above: Result Comment: Canc elled via OM: Order cancelled - Patient discharged Performed By: #### L 100.0100, L500.2500 ####[facility] [address] [place], [address] BUN/CRE Normal 10-20 [facility] Comment on above: Result Comment: Canc elled via OM: Order cancelled - Patient discharged Performed By: #### L 100.0100, L500.2500 ####[facility] [address] [place], [address] Calcium Normal 7.6-11.0 [facility] Comment on above: Result Comment: Canc elled via OM: Order cancelled - Patient discharged Performed By: #### L 100.0100, L500.2500 ####[facility] [address] [place], [address] CL Normal 98-108 [facility] Comment on above: Result Comment: Canc elled via OM: Order cancelled - Patient discharged Performed By: #### L 100.0100, L500.2500 ####[facility] [address] [place], [address] CO2 Normal 21.0-32.0 [facility] Comment on above: Result Comment: Canc elled via OM: Order cancelled - Patient discharged Performed By: #### L 100.0100, L500.2500 ####[facility] [address] [place], [address] CREAT,SERUM Normal 0.70-1.20 [facility] Comment on above: Result Comment: Canc elled via OM: Order cancelled - Patient discharged Performed By: #### L 100.0100, L500.2500 ####[facility] [address] [place], [address] eGFR Normal >60 [facility] Comment on above: Result Comment: Canc elled via OM: Order cancelled - Patient discharged Performed By: #### L 100.0100, L500.2500 ####[facility] [address] [place], [address] GAP Normal 5-15 [facility] Comment on above: Result Comment: Canc elled via OM: Order cancelled - Patient discharged Performed By: #### L 100.0100, L500.2500 ####[facility] [address] [place], [address] GLU Normal 70-99 [facility] Comment on above: Result Comment: Canc elled via OM: Order cancelled - Patient discharged Performed By: #### L 100.0100, L500.2500 ####[facility] [address] [place], [address] Potassium Normal 3.3-5.1 [facility] Comment on above: Result Comment: Canc elled via OM: Order cancelled - Patient discharged Performed By: #### L 100.0100, L500.2500 ####[facility] [address] [place], [address] Basic Metabolic Profile (BMP) Normal 133-145 [facility] Comment on above: Result Comment: Canc elled via OM: Order cancelled - Patient discharged Performed By: #### L 100.0100, L500.2500 ####[facility] [address] [place], [address] Basophil percentageOrdered B y: Billy Kothari on 02-18-2025 Basophils/100 WBC (Bld) 0.2 % 0-1 [facility] CBC W/Diff, Automatedon 06-2 Absolute Lymph 1.53 X10 3/uL Normal 0.83-4.51 [facility] Comment on above: Performed By: #### L 500.2500, L100.0100 ####[facility] [address] [place], [address] Absolute Neut 9.6 X10 3/uL High 2.0-7.7 [facility] Comment on above: Performed By: #### L 500.2500, L100.0100 ####[facility] [address] [place], [address] Basophils/100 WBC (Bld) 0.2 % Normal 0-1 [facility] Comment on above: Performed By: #### L 500.2500, L100.0100 ####[facility] [address] [place], [address] Eosinophils/100 WBC (Bld) 1.0 % Normal 0-5 [facility] Comment on above: Performed By: #### L 500.2500, L100.0100 ####[facility] [address] [place], [address] Erythrocyte distribution width (RBC) [Ratio] 15.9 % High 11.6-14.6 [facility] Comment on above: Performed By: #### L 500.2500, L100.0100 ####[facility] [address] [place], [address] Hematocrit (Bld) [Volume fraction] 35.8 % Low 37-47 [facility] Comment on above: Performed By: #### L 500.2500, L100.0100 ####[facility] [address] [place], [address] Hemoglobin (Bld) [Mass/Vol] 10.9 g/dL Low 12.0-15.0 [facility] Comment on above: Performed By: #### L 500.2500, L100.0100 ####[facility] [address] [place], [address] IG% 0.900 Normal 0.0-0.9 [facility] Comment on above: Result Comment: IG% - Immature Granulocytes (promyelocytes, myelocytes andmetamyelocytes) > 1% indicates that a LEFT SHIFT is Present. Performed By: #### L 500.2500, L100.0100 ####[facility] [address] [place], [address] Lymphocytes/100 WBC (Bld) 12.5 % Low 19-41 [facility] Comment on above: Performed By: #### L 500.2500, L100.0100 ####[facility] [address] [place], [address] MCH (RBC) [Entitic mass] 27.9 pg Normal 27.0-32.0 [facility] Comment on above: Performed By: #### L 500.2500, L100.0100 ####[facility] [address] [place], [address] MCHC (RBC) [Mass/Vol] 30.4 g/dL Low 32-36 [facility] Comment on above: Performed By: #### L 500.2500, L100.0100 ####[facility] [address] [place], [address] MCV (RBC) [Entitic vol] 91.6 fL Normal 81-99 [facility] Comment on above: Performed By: #### L 500.2500, L100.0100 ####[facility] [address] [place], [address] Monocytes/100 WBC (Bld) 6.7 % Normal 0-10 [facility] Comment on above: Performed By: #### L 500.2500, L100.0100 ####[facility] [address] [place], [address] Neutrophils/100 WBC (Bld) 78.7 % High 47-70 [facility] Comment on above: Performed By: #### L 500.2500, L100.0100 ####[facility] [address] [place], [address] Nucleated RBC (Bld) [#/Vol] 0 10*3/uL Normal 0-5 [facility] Comment on above: Performed By: #### L 500.2500, L100.0100 ####[facility] [address] [place], [address] Platelet mean volume (Bld) [Entitic vol] 11.5 fL Normal 6.2-12.0 [facility] Comment on above: Performed By: #### L 500.2500, L100.0100 ####[facility] [address] [place], [address] Platelets (Bld) [#/Vol] 337 10*3/uL Normal 150-450 [facility] Comment on above: Performed By: #### L 500.2500, L100.0100 ####[facility] [address] [place], [address] RBC (Bld) [#/Vol] 3.91 10*6/uL Low 4.2-5.4 [facility] Comment on above: Performed By: #### L 500.2500, L100.0100 ####[facility] [address] [place], [address] RDW SD 52.1 fl High 35.1-43.9 [facility] Comment on above: Performed By: #### L 500.2500, L100.0100 ####[facility] [address] [place], [address] WBC (Bld) [#/Vol] 12.2 10*3/uL High 4.4-11.0 [facility] Comment on above: Performed By: #### L 500.2500, L100.0100 ####[facility] [address] [place], [address] Absolute Neut Normal 2.0-7.7 [facility] Comment on above: Result Comment: Canc elled via OM: Order cancelled - Patient discharged Performed By: #### L 100.0100, L500.2500 ####[facility] [address] [place], [address] HCT Normal 37-47 [facility] Comment on above: Result Comment: Canc elled via OM: Order cancelled - Patient discharged Performed By: #### L 100.0100, L500.2500 ####[facility] [address] [place], [address] HGB Normal 12.0-15.0 [facility] Comment on above: Result Comment: Canc elled via OM: Order cancelled - Patient discharged Performed By: #### L 100.0100, L500.2500 ####[facility] [address] [place], [address] MCH Normal 27.0-32.0 [facility] Comment on above: Result Comment: Canc elled via OM: Order cancelled - Patient discharged Performed By: #### L 100.0100, L500.2500 ####[facility] [address] [place], [address] MCHC Normal 32-36 [facility] Comment on above: Result Comment: Canc elled via OM: Order cancelled - Patient discharged Performed By: #### L 100.0100, L500.2500 ####[facility] [address] [place], [address] MCV Normal 81-99 [facility] Comment on above: Result Comment: Canc elled via OM: Order cancelled - Patient discharged Performed By: #### L 100.0100, L500.2500 ####[facility] [address] [place], [address] NEUT% Normal 47-70 [facility] Comment on above: Result Comment: Canc elled via OM: Order cancelled - Patient discharged Performed By: #### L 100.0100, L500.2500 ####[facility] [address] [place], [address] PLT Normal 150-450 [facility] Comment on above: Result Comment: Canc elled via OM: Order cancelled - Patient discharged Performed By: #### L 100.0100, L500.2500 ####[facility] [address] [place], [address] RBC Normal 4.2-5.4 [facility] Comment on above: Result Comment: Canc elled via OM: Order cancelled - Patient discharged Performed By: #### L 100.0100, L500.2500 ####[facility] [address] [place], [address] RDW CV Normal 11.6-14.6 [facility] Comment on above: Result Comment: Canc elled via OM: Order cancelled - Patient discharged Performed By: #### L 100.0100, L500.2500 ####[facility] [address] [place], [address] RDW SD Normal 35.1-43.9 [facility] Comment on above: Result Comment: Canc elled via OM: Order cancelled - Patient discharged Performed By: #### L 100.0100, L500.2500 ####[facility] [address] [place], [address] WBC Normal 4.4-11.0 [facility] Comment on above: Result Comment: Canc elled via OM: Order cancelled - Patient discharged Performed By: #### L 100.0100, L500.2500 ####[facility] [address] [place], [address] Carbon dioxide, total [Moles /volume] in Central venous bloodOrdered By: Billy Kothari on 02-18-2025 CO2 [Moles/Vol] 28.1 mmol/L 21.0-32.0 [facility] Chest 1 View (Portable)on Chest 1 View (Portable) Normal [facility] Chloride assayOrdered By: Dante Kothari on 02-18-2025 Chloride [Moles/Vol] 97 mmol/L Low 98-108 [facility] Emergency Department Summary on 02-18-2025 Emergency Department Summary Normal [facility] Eosinophil percentageOrdered By: Billy Kothari on 02-18-2025 Eosinophils/100 WBC (Bld) 1.0 % 0-5 [facility] Erythrocyte distribution wid th ratioOrdered By: Billy Kothari on 02-18-2025 Erythrocyte distribution width (RBC) [Ratio] 15.9 % High 11.6-14.6 [facility] Erythrocyte distribution wid th standard deviationOrdered By: Billy Kothari on 02-18-2025 Erythrocyte distribution width (RBC) [Ratio] 52.1 fl High 35.1-43.9 [facility] Glomerular filtration rate ( GFR) estimation/1.73 sq m using serum, plasma, or whole bOrdered By: Billy Kothari on 02-18-2025 GFR/1.73 sq M.predicted among non-blacks MDRD (S/P/Bld) [Vol rate/Area] 43 mL/min/{1.73_m2} Low >60 [facility] Hematocrit Auto (Bld) [Volum e fraction]Ordered By: Billy Kothari on 02-18-2025 Hematocrit (Bld) [Volume fraction] 35.8 % Low 37-47 [facility] Hemoglobin measurementOrdere d By: Billy Kothari on 02-18-2025 Hemoglobin (Bld) [Mass/Vol] 10.9 g/dL Low 12.0-15.0 [facility] Immature granulocytes/100 WB C Auto (Bld)Ordered By: Billy Kothari on 02-18-2025 Immature granulocytes/100 WBC (Bld) 0.900 % 0.0-0.9 [facility] L503.7505on 02-18-2025 Natriuretic peptide B (Bld) [Mass/Vol] 3811 pg/mL High <=1800 [facility] Comment on above: Result Comment: Hear t Failure Unlikely: < 300 pg/mLHeart Failure Likely< 50 Years: > 450 pg/mL50-75 Years: > 900 pg/mL>75 Years: > 1800 pg/mL Performed By: #### L 503.7505 ####[facility] [address] [place], [address] MCV (mean corpuscular volume ) determinationOrdered By: Billy Kothari on 02-18-2025 MCV (RBC) [Entitic vol] 91.6 fL 81-99 [facility] Mean corpuscular hemoglobin (MCH) determinationOrdered By: Billy Kothari on 02-18-2025 MCH (RBC) [Entitic mass] 27.9 pg 27.0-32.0 [facility] Monocyte percentageOrdered B y: Billy Kothari on 02-18-2025 Monocytes/100 WBC (Bld) 6.7 % 0-10 [facility] Natriuretic peptide.B prohor hayley N-Terminal [Mass/volume] in Serum or PlasmaOrdered By: Billy Kothari on 02-18-2025 Natriuretic peptide.B prohormone N-Terminal [Mass/Vol] 3811 pg/mL High <1800 [facility] Neutrophil percentageOrdered By: Billy Kothari on 02-18-2025 Neutrophils/100 WBC (Bld) 78.7 % High 47-70 [facility] Platelet countOrdered By: Dante Kothari on 02-18-2025 Platelets (Bld) [#/Vol] 337 10*3/uL 150-450 [facility] Potassiumon 02-18-2025 Potassium [Moles/Vol] 4.7 mmol/L Normal 3.3-5.1 [facility] Comment on above: Performed By: #### L 501.5600 ####[facility] [address] [place], [place], [id number] Potassium measurement (mass/ volume)Ordered By: Billy Kothari on 02-18-2025 Potassium (Unsp spec) [Mass/Vol] 4.7 mmol/L 3.3-5.1 [facility] RBC Auto (Bld) [#/Vol]Ordere d By: Billy Kothari on 02-18-2025 RBC (Bld) [#/Vol] 3.91 10*6/uL Low 4.2-5.4 [facility] Respiratory Cultureon 2024 RESPC Mixed normal respiratory karin. No Streptococcus pneumoniae, beta-hemolytic Streptococcus or Staphylococcus aureus isolated. Normal [facility] Comment on above: Performed By: #### M 100.2000, M100.2400 ####[facility] [address] [place], [place], [id number] Serum creatinine measurement (mass/volume)Ordered By: Billy Kothari on 02-18-2025 Creatinine [Mass/Vol] 1.26 mg/dL High 0.70-1.20 [facility] Serum glucose measurement (m ass/volume)Ordered By: Billy Kothari on 02-18-2025 Glucose [Mass/Vol] 174 mg/dL High 70-99 [facility] Serum or plasma calcium melanie urement (mass/volume)Ordered By: Billy Kothari on 02-18-2025 Calcium [Mass/Vol] 10.7 mg/dL 7.6-11.0 [facility] Serum or plasma urea nitroge n measurement (mass/volume)Ordered By: Billy Kothari on 02-18-2025 Urea nitrogen [Mass/Vol] 25 mg/dL High 4-19 [facility] Sodium levelOrdered By: Billy Kothari on 02-18-2025 Sodium [Moles/Vol] 136 mmol/L 133-145 [facility] White blood cell (WBC) count Ordered By: Billy Kothari on 02-18-2025 WBC (Bld) [#/Vol] 12.2 10*3/uL High 4.4-11.0 [facility] Absolute lymphocyte countOrd ered By: Heydi Amaya on 02-17-2025 Lymphocytes Auto (Unsp spec) [#/Vol] 0.58 10*3/uL Low 0.83-4.51 [facility] Anion gap in Serum or Plasma Ordered By: Heydi Amaya on 02-17-2025 Anion gap [Moles/Vol] 12 mmol/L 5-15 [facility] Automated lymphocyte count a s percentage of total leukocytesOrdered By: Heydi Amaya on 02-17-2025 Lymphocytes/100 WBC Auto (Unsp spec) 7.8 % Low 19-41 [facility] BUN/creatinine ratioOrdered By: Heydi Amaya on 02-17-2025 Urea nitrogen/Creatinine [Mass ratio] 23.0 mg/mg High 06-19 [facility] Basic Metabolic Profile (BMP )on 02-17-2025 BUN/CRE 23.0 RATIO High - [facility] Comment on above: Performed By: #### L 500.2500, L100.0100 ####[facility] [address] [place], [address] Calcium [Mass/Vol] 10.3 mg/dL Normal 7.6-11.0 [facility] Comment on above: Performed By: #### L 500.2500, L100.0100 ####[facility] [address] [place], [address] Chloride [Moles/Vol] 98 mmol/L Normal 98-108 [facility] Comment on above: Performed By: #### L 500.2500, L100.0100 ####[facility] [address] [place], [address] CO2 [Moles/Vol] 23.5 mmol/L Normal 21.0-32.0 [facility] Comment on above: Performed By: #### L 500.2500, L100.0100 ####[facility] [address] [place], [address] Creatinine [Mass/Vol] 1.15 mg/dL Normal 0.70-1.20 [facility] Comment on above: Performed By: #### L 500.2500, L100.0100 ####[facility] [address] [place], [address] ECRCL 37.29 ml/min Low 50-250 [facility] Comment on above: Performed By: #### L 500.2500, L100.0100 ####[facility] [address] [place], [address] GAP 12 Normal 5-15 [facility] Comment on above: Performed By: #### L 500.2500, L100.0100 ####[facility] [address] [place], [address] GFR/1.73 sq M.predicted among non-blacks MDRD (S/P/Bld) [Vol rate/Area] 48 mL/min/{1.73_m2} Low >60 [facility] Comment on above: Result Comment: mL/m in/1.73m2 CKD-EPI Creatinine Equation (2020) Performed By: #### L 500.2500, L100.0100 ####[facility] [address] [place], [address] Glucose [Mass/Vol] 426 mg/dL High 70-99 [facility] Comment on above: Performed By: #### L 500.2500, L100.0100 ####[facility] [address] [place], [address] Potassium [Moles/Vol] 5.3 mmol/L High 3.3-5.1 [facility] Comment on above: Performed By: #### L 500.2500, L100.0100 ####[facility] [address] [place], [address] Sodium [Moles/Vol] 134 mmol/L Normal 133-145 [facility] Comment on above: Performed By: #### L 500.2500, L100.0100 ####[facility] [address] [place], [address] Urea nitrogen [Mass/Vol] 27 mg/dL High 4-19 [facility] Comment on above: Performed By: #### L 500.2500, L100.0100 ####[facility] [address] [place], [address] Basophil percentageOrdered B y: Heydi Amaya on 02-17-2025 Basophils/100 WBC (Bld) 0.1 % 0-1 [facility] Bedside Glucoseon 02-17-2025 FINGERSTICK GLU 241 mg/dL High 74-106 [facility] Comment on above: Result Comment: KATARINA GEMENT OF PATIENT CARE PER NURSING PROTOCOL Performed By: #### L 501.080 ####[facility] [address] [place], [address] FINGERSTICK GLU 419 mg/dL High -[address] [place] [address] Comment on above: Result Comment: KATARINA GEMENT OF PATIENT CARE PER NURSING PROTOCOL Performed By: #### L 501.080 ####[facility] [address] [place], [address] FINGERSTICK GLU 488 mg/dL Invalid Interpretation Code [address] [place] [address] Comment on above: Result Comment: KATARINA GEMENT OF PATIENT CARE PER NURSING PROTOCOL Performed By: #### L 501.080 ####[facility] [address] [place], [address] CBC W/Diff, Automatedon 01-30 0 Absolute Lymph 0.58 X10 3/uL Low 0.83-4.51 [facility] Comment on above: Performed By: #### L 500.2500, L100.0100 ####[facility] [address] [place], [address] Absolute Neut 6.4 X10 3/uL Normal 2.0-7.7 [facility] Comment on above: Performed By: #### L 500.2500, L100.0100 ####[facility] [address] [place], [address] Basophils/100 WBC (Bld) 0.1 % Normal 0-1 [facility] Comment on above: Performed By: #### L 500.2500, L100.0100 ####[facility] [address] [place], [address] Eosinophils/100 WBC (Bld) 0.1 % Normal 0-5 [facility] Comment on above: Performed By: #### L 500.2500, L100.0100 ####[facility] [address] [place], [address] Erythrocyte distribution width (RBC) [Ratio] 15.6 % High 11.6-14.6 [facility] Comment on above: Performed By: #### L 500.2500, L100.0100 ####[facility] [address] [place], [address] Hematocrit (Bld) [Volume fraction] 32.6 % Low 37-47 [facility] Comment on above: Performed By: #### L 500.2500, L100.0100 ####[facility] [address] [place], [address] Hemoglobin (Bld) [Mass/Vol] 9.9 g/dL Low 12.0-15.0 [facility] Comment on above: Performed By: #### L 500.2500, L100.0100 ####[facility] [address] [place], [address] IG% 0.900 Normal 0.0-0.9 [facility] Comment on above: Result Comment: IG% - Immature Granulocytes (promyelocytes, myelocytes andmetamyelocytes) > 1% indicates that a LEFT SHIFT is Present. Performed By: #### L 500.2500, L100.0100 ####[facility] [address] [place], [address] Lymphocytes/100 WBC (Bld) 7.8 % Low 19-41 [facility] Comment on above: Performed By: #### L 500.2500, L100.0100 ####[facility] [address] [place], [address] MCH (RBC) [Entitic mass] 27.7 pg Normal 27.0-32.0 [facility] Comment on above: Performed By: #### L 500.2500, L100.0100 ####[facility] [address] [place], [address] MCHC (RBC) [Mass/Vol] 30.4 g/dL Low 32-36 [facility] Comment on above: Performed By: #### L 500.2500, L100.0100 ####[facility] [address] [place], [address] MCV (RBC) [Entitic vol] 91.3 fL Normal 81-99 [facility] Comment on above: Performed By: #### L 500.2500, L100.0100 ####[facility] [address] [place], [address] Monocytes/100 WBC (Bld) 5.0 % Normal 0-10 [facility] Comment on above: Performed By: #### L 500.2500, L100.0100 ####[facility] [address] [place], [address] Neutrophils/100 WBC (Bld) 86.1 % High 47-70 [facility] Comment on above: Performed By: #### L 500.2500, L100.0100 ####[facility] [address] [place], [address] Nucleated RBC (Bld) [#/Vol] 0 10*3/uL Normal 0-5 [facility] Comment on above: Performed By: #### L 500.2500, L100.0100 ####[facility] [address] [place], [address] Platelet mean volume (Bld) [Entitic vol] 11.2 fL Normal 6.2-12.0 [facility] Comment on above: Performed By: #### L 500.2500, L100.0100 ####[facility] [address] [place], [address] Platelets (Bld) [#/Vol] 246 10*3/uL Normal 150-450 [facility] Comment on above: Performed By: #### L 500.2500, L100.0100 ####[facility] [address] [place], [address] RBC (Bld) [#/Vol] 3.57 10*6/uL Low 4.2-5.4 [facility] Comment on above: Performed By: #### L 500.2500, L100.0100 ####[facility] [address] [place], [address] RDW SD 51.5 fl High 35.1-43.9 [facility] Comment on above: Performed By: #### L 500.2500, L100.0100 ####[facility] [address] [place], [address] WBC (Bld) [#/Vol] 7.5 10*3/uL Normal 4.4-11.0 [facility] Comment on above: Performed By: #### L 500.2500, L100.0100 ####[facility] [address] [place], [address] Carbon dioxide, total [Moles /volume] in Central venous bloodOrdered By: Heydi Amaya on 02-17-2025 CO2 [Moles/Vol] 23.5 mmol/L 21.0-32.0 [facility] Chloride assayOrdered By: Davy Amaya on 02-17-2025 Chloride [Moles/Vol] 98 mmol/L 98-108 [facility] Electrocardiogram reportOrde red By: Marcelina Soto on 02-17-2025 EKG study [facility] Work Phone: [phone] Eosinophil percentageOrdered By: Heydi Amaya on 02-17-2025 Eosinophils/100 WBC (Bld) 0.1 % 0-5 [facility] Erythrocyte distribution wid th ratioOrdered By: Heydi Amaya on 02-17-2025 Erythrocyte distribution width (RBC) [Ratio] 15.6 % High 11.6-14.6 [facility] Erythrocyte distribution wid th standard deviationOrdered By: Heydi Amaya on 02-17-2025 Erythrocyte distribution width (RBC) [Ratio] 51.5 fl High 35.1-43.9 [facility] Glomerular filtration rate ( GFR) estimation/1.73 sq m using serum, plasma, or whole bOrdered By: Heydi Amaya on 02-17-2025 GFR/1.73 sq M.predicted among non-blacks MDRD (S/P/Bld) [Vol rate/Area] 48 mL/min/{1.73_m2} Low >60 [facility] deOrdered By: Heydi Amaya on 02-17-2025 Glucose [Mass/Vol] 241 mg/dL High 74-106 [facility] Hematocrit Auto (Bld) [Volum e fraction]Ordered By: Heydi Amaya on 02-17-2025 Hematocrit (Bld) [Volume fraction] 32.6 % Low 37-47 [facility] Hemoglobin measurementOrdere d By: Heydi Amaya on 02-17-2025 Hemoglobin (Bld) [Mass/Vol] 9.9 g/dL Low 12.0-15.0 [facility] Immature granulocytes/100 WB C Auto (Bld)Ordered By: Heydi Amaya 02-17-2025 Immature granulocytes/100 WBC (Bld) 0.900 % 0.0-0.9 [facility] MCV (mean corpuscular volume ) determinationOrdered By: Heydi Amaya 02-17-2025 MCV (RBC) [Entitic vol] 91.3 fL 81-99 [facility] Mean corpuscular hemoglobin (MCH) determinationOrdered By: Heydi Amaya 02-17-2025 MCH (RBC) [Entitic mass] 27.7 pg 27.0-32.0 [facility] Monocyte percentageOrdered B y: Heydi Amaya on 02-17-2025 Monocytes/100 WBC (Bld) 5.0 % 0-10 [facility] Neutrophil percentageOrdered By: Heydi Amaya on 02-17-2025 Neutrophils/100 WBC (Bld) 86.1 % High 47-70 [facility] Platelet countOrdered By: Davy Amaya on 02-17-2025 Platelets (Bld) [#/Vol] 246 10*3/uL 150-450 [facility] Potassium measurement (mass/ volume)Ordered By: Heydi Amaya on 02-17-2025 Potassium (Unsp spec) [Mass/Vol] 5.3 mmol/L High 3.3-5.1 [facility] RBC Auto (Bld) [#/Vol]Ordere d By: Heydi Amaya on 02-17-2025 RBC (Bld) [#/Vol] 3.57 10*6/uL Low 4.2-5.4 [facility] Serum creatinine measurement (mass/volume)Ordered By: Heydi Amaya on 02-17-2025 Creatinine [Mass/Vol] 1.15 mg/dL 0.70-1.20 [facility] Serum glucose measurement (m ass/volume)Ordered By: Heydi Amaya on 02-17-2025 Glucose [Mass/Vol] 426 mg/dL High 70-99 [facility] Serum or plasma calcium melanie urement (mass/volume)Ordered By: Heydi Amaya on 02-17-2025 Calcium [Mass/Vol] 10.3 mg/dL 7.6-11.0 [facility] Serum or plasma urea nitroge n measurement (mass/volume)Ordered By: Heydi Amaya on 02-17-2025 Urea nitrogen [Mass/Vol] 27 mg/dL High 4-19 [facility] Sodium levelOrdered By: Rodolfo Amaya on 02-17-2025 Sodium [Moles/Vol] 134 mmol/L 133-145 [facility] White blood cell (WBC) count Ordered By: Heydi Amaya on 02-17-2025 WBC (Bld) [#/Vol] 7.5 10*3/uL 4.4-11.0 [facility] Basic Metabolic Profile (BMP )on 02-16-2025 BUN/CRE 22.0 RATIO High 10-20 [facility] Comment on above: Performed By: #### L 500.2500, L100.0500 ####[facility] [address] [place], [address] Calcium [Mass/Vol] 10.7 mg/dL Normal 7.6-11.0 [facility] Comment on above: Performed By: #### L 500.2500, L100.0500 ####[facility] [address] [place], [address] Chloride [Moles/Vol] 97 mmol/L Low 98-108 [facility] Comment on above: Performed By: #### L 500.2500, L100.0500 ####[facility] [address] [place], [address] CO2 [Moles/Vol] 29.5 mmol/L Normal 21.0-32.0 [facility] Comment on above: Performed By: #### L 500.2500, L100.0500 ####[facility] [address] [place], [address] Creatinine [Mass/Vol] 0.97 mg/dL Normal 0.70-1.20 [facility] Comment on above: Performed By: #### L 500.2500, L100.0500 ####[facility] [address] [place], [address] ECRCL 44.69 ml/min Low 50-250 [facility] Comment on above: Performed By: #### L 500.2500, L100.0500 ####[facility] [address] [place], [address] GAP 12 Normal 5-15 [facility] Comment on above: Performed By: #### L 500.2500, L100.0500 ####[facility] [address] [place], [address] GFR/1.73 sq M.predicted among non-blacks MDRD (S/P/Bld) [Vol rate/Area] 58 mL/min/{1.73_m2} Low >60 [facility] Comment on above: Result Comment: mL/m in/1.73m2 CKD-EPI Creatinine Equation (2020) Performed By: #### L 500.2500, L100.0500 ####[facility] [address] [place], [address] Glucose [Mass/Vol] 98 mg/dL Normal 70-99 [facility] Comment on above: Performed By: #### L 500.2500, L100.0500 ####[facility] [address] [place], [address] Potassium [Moles/Vol] 4.7 mmol/L Normal 3.3-5.1 [facility] Comment on above: Performed By: #### L 500.2500, L100.0500 ####[facility] [address] [place], [address] Sodium [Moles/Vol] 138 mmol/L Normal 133-145 [facility] Comment on above: Performed By: #### L 500.2500, L100.0500 ####[facility] [address] [place], [address] Urea nitrogen [Mass/Vol] 21 mg/dL High 4-19 [facility] Comment on above: Performed By: #### L 500.2500, L100.0500 ####[facility] [address] [place], [address] Bedside Glucoseon 02-16-2025 FINGERSTICK GLU 254 mg/dL High 74-106 [facility] Comment on above: Result Comment: KATARINA GEMENT OF PATIENT CARE PER NURSING PROTOCOL Performed By: #### L 501.080 ####[facility] [address] [place], [address] FINGERSTICK GLU 234 mg/dL High 74-106 [facility] Comment on above: Result Comment: KATARINA GEMENT OF PATIENT CARE PER NURSING PROTOCOL Performed By: #### L 501.080 ####[facility] [address] [place], [address] FINGERSTICK GLU 91 mg/dL Normal 74-106 [facility] Comment on above: Result Comment: KATARINA GEMENT OF PATIENT CARE PER NURSING PROTOCOL Performed By: #### L 501.080 ####[facility] [address] [place], [address] FINGERSTICK GLU 63 mg/dL Low 74-106 [facility] Comment on above: Result Comment: KATARINA GEMENT OF PATIENT CARE PER NURSING PROTOCOL Performed By: #### L 501.080 ####[facility] [address] [place], [address] CBC-Complete Blood Cnt No Di ffon 02-16-2025 Erythrocyte distribution width (RBC) [Ratio] 16.1 % High 11.6-14.6 [facility] Comment on above: Performed By: #### L 500.2500, L100.0500 ####[facility] [address] [place], [address] Hematocrit (Bld) [Volume fraction] 36.2 % Low 37-47 [facility] Comment on above: Performed By: #### L 500.2500, L100.0500 ####[facility] [address] [place], [address] Hemoglobin (Bld) [Mass/Vol] 11.0 g/dL Low 12.0-15.0 [facility] Comment on above: Performed By: #### L 500.2500, L100.0500 ####[facility] [address] [place], [address] MCH (RBC) [Entitic mass] 27.4 pg Normal 27.0-32.0 [facility] Comment on above: Performed By: #### L 500.2500, L100.0500 ####[facility] [address] [place], [address] MCHC (RBC) [Mass/Vol] 30.4 g/dL Low 32-36 [facility] Comment on above: Performed By: #### L 500.2500, L100.0500 ####[facility] [address] [place], [address] MCV (RBC) [Entitic vol] 90.0 fL Normal 81-99 [facility] Comment on above: Performed By: #### L 500.2500, L100.0500 ####[facility] [address] [place], [address] Platelet mean volume (Bld) [Entitic vol] 11.0 fL Normal 6.2-12.0 [facility] Comment on above: Performed By: #### L 500.2500, L100.0500 ####[facility] [address] [place], [address] Platelets (Bld) [#/Vol] 250 10*3/uL Normal 150-450 [facility] Comment on above: Performed By: #### L 500.2500, L100.0500 ####[facility] [address] [place], [address] RBC (Bld) [#/Vol] 4.02 10*6/uL Low 4.2-5.4 [facility] Comment on above: Performed By: #### L 500.2500, L100.0500 ####[facility] [address] [place], [address] RDW SD 52.3 fl High 35.1-43.9 [facility] Comment on above: Performed By: #### L 500.2500, L100.0500 ####[facility] [address] [place], [address] WBC (Bld) [#/Vol] 9.2 10*3/uL Normal 4.4-11.0 [facility] Comment on above: Performed By: #### L 500.2500, L100.0500 ####[facility] [address] [place], [place], [address] Gram Stainon 02-16-2025 GS Acceptable Specimen? Yes (<25 Epithelial cells per/lpf) Gram Stain Rare Gram positive cocci Rare Gram positive rods No Epithelial cells Rare White Blood Cells Normal [facility] Comment on above: Performed By: #### M 100.2000, M100.2400 ####[facility] [address] [place], [place], [id number] Gram stainOrdered By: Ankit Jean-Baptiste on 02-16-2025 Microscopic observation Gram stain Nom (Unsp spec) [facility] Microbial respiratory cultur eOrdered By: Nestor Bartlett on 02-16-2025 Microorganism identified Cx Nom (Unsp spec) or Staphylococcus aureus isolated. [facility] 12 Lead EKGon 02-15-2025 12 Lead EKG Normal [facility] Absolute lymphocyte countOrd ered By: Remus Ungur on 02-15-2025 Lymphocytes Auto (Unsp spec) [#/Vol] 0.98 10*3/uL 0.83-4.51 [facility] Anion gap in Serum or Plasma Ordered By: Remus Ungur on 02-15-2025 Anion gap [Moles/Vol] 9 mmol/L 5-15 [facility] Automated lymphocyte count a s percentage of total leukocytesOrdered By: Remus Ungur on 02-15-2025 Lymphocytes/100 WBC Auto (Unsp spec) 10.9 % Low 19-41 [facility] BUN/creatinine ratioOrdered By: Remus Ungur on 02-15-2025 Urea nitrogen/Creatinine [Mass ratio] 23.1 mg/mg High 10-20 [facility] Basic Metabolic Profile (BMP )on 02-15-2025 BUN/CRE 23.1 RATIO High - [facility] Comment on above: Performed By: #### L 500.2500, L503.7505, L501.4021, L100.0100 ####[facility] [address] [place], [address] Calcium [Mass/Vol] 10.7 mg/dL Normal 7.6-11.0 [facility] Comment on above: Performed By: #### L 500.2500, L503.7505, L501.4021, L100.0100 ####[facility] [address] [place], [address] Chloride [Moles/Vol] 98 mmol/L Normal 98-108 [facility] Comment on above: Performed By: #### L 500.2500, L503.7505, L501.4021, L100.0100 ####[facility] [address] [place], [address] CO2 [Moles/Vol] 30.9 mmol/L Normal 21.0-32.0 [facility] Comment on above: Performed By: #### L 500.2500, L503.7505, L501.4021, L100.0100 ####[facility] [address] [place], [address] Creatinine [Mass/Vol] 1.04 mg/dL Normal 0.70-1.20 [facility] Comment on above: Performed By: #### L 500.2500, L503.7505, L501.4021, L100.0100 ####[facility] [address] [place], [address] ECRCL 41.98 ml/min Low 50-250 [facility] Comment on above: Performed By: #### L 500.2500, L503.7505, L501.4021, L100.0100 ####[facility] [address] [place], [address] GAP 9 Normal 5-15 [facility] Comment on above: Performed By: #### L 500.2500, L503.7505, L501.4021, L100.0100 ####[facility] [address] [place], [address] GFR/1.73 sq M.predicted among non-blacks MDRD (S/P/Bld) [Vol rate/Area] 54 mL/min/{1.73_m2} Low >60 [facility] [facility] Comment on above: Result Comment: mL/m in/1.73m2 CKD-EPI Creatinine Equation (2020) Performed By: #### L 500.2500, L503.7505, L501.4021, L100.0100 ####[facility] [address] [place], [address] Glucose [Mass/Vol] 97 mg/dL Normal 70-99 [facility] Comment on above: Performed By: #### L 500.2500, L503.7505, L501.4021, L100.0100 ####[facility] [address] [place], [address] Potassium [Moles/Vol] 4.3 mmol/L Normal 3.3-5.1 [facility] Comment on above: Performed By: #### L 500.2500, L503.7505, L501.4021, L100.0100 ####[facility] [address] [place], [address] Sodium [Moles/Vol] 138 mmol/L Normal 133-145 [facility] Comment on above: Performed By: #### L 500.2500, L503.7505, L501.4021, L100.0100 ####[facility] [address] [place], [address] Urea nitrogen [Mass/Vol] 24 mg/dL High 4-19 [facility] Comment on above: Performed By: #### L 500.2500, L503.7505, L501.4021, L100.0100 ####[facility] [address] [place], [address] Basophil percentageOrdered B y: Robert Allison on 02-15-2025 Basophils/100 WBC (Bld) 0.1 % 0-1 [facility] Bedside Glucoseon 02-15-2025 FINGERSTICK GLU 152 mg/dL High 74-106 [facility] Comment on above: Result Comment: KATARINA GEMENT OF PATIENT CARE PER NURSING PROTOCOL Performed By: #### L 501.080 ####[facility] [address] [place], [address] FINGERSTICK GLU 80 mg/dL Normal 74-106 [facility] Comment on above: Result Comment: KATARINA GEMENT OF PATIENT CARE PER NURSING PROTOCOL Performed By: #### L 501.080 ####[facility] [address] [place], [address] CBC W/Diff, Automatedon 01-29 Absolute Lymph 0.98 X10 3/uL Normal 0.83-4.51 [facility] Comment on above: Performed By: #### L 500.2500, L503.7505, L501.4021, L100.0100 ####[facility] [address] [place], [address] Absolute Neut 7.5 X10 3/uL Normal 2.0-7.7 [facility] Comment on above: Performed By: #### L 500.2500, L503.7505, L501.4021, L100.0100 ####[facility] [address] [place], [address] Basophils/100 WBC (Bld) 0.1 % Normal 0-1 [facility] Comment on above: Performed By: #### L 500.2500, L503.7505, L501.4021, L100.0100 ####[facility] [address] [place], [address] Eosinophils/100 WBC (Bld) 0.7 % Normal 0-5 [facility] Comment on above: Performed By: #### L 500.2500, L503.7505, L501.4021, L100.0100 ####[facility] [address] [place], [address] Erythrocyte distribution width (RBC) [Ratio] 16.2 % High 11.6-14.6 [facility] Comment on above: Performed By: #### L 500.2500, L503.7505, L501.4021, L100.0100 ####[facility] [address] [place], [address] Hematocrit (Bld) [Volume fraction] 33.5 % Low 37-47 [facility] Comment on above: Performed By: #### L 500.2500, L503.7505, L501.4021, L100.0100 ####[facility] [address] [place], [address] Hemoglobin (Bld) [Mass/Vol] 10.1 g/dL Low 12.0-15.0 [facility] Comment on above: Performed By: #### L 500.2500, L503.7505, L501.4021, L100.0100 ####[facility] [address] [place], [address] IG% 1.000 High 0.0-0.9 [facility] Comment on above: Result Comment: IG% - Immature Granulocytes (promyelocytes, myelocytes andmetamyelocytes) > 1% indicates that a LEFT SHIFT is Present. Performed By: #### L 500.2500, L503.7505, L501.4021, L100.0100 ####[facility] [address] [place], [address] Lymphocytes/100 WBC (Bld) 10.9 % Low 19-41 [facility] Comment on above: Performed By: #### L 500.2500, L503.7505, L501.4021, L100.0100 ####[facility] [address] [place], [address] MCH (RBC) [Entitic mass] 27.0 pg Normal 27.0-32.0 [facility] Comment on above: Performed By: #### L 500.2500, L503.7505, L501.4021, L100.0100 ####[facility] [address] [place], [address] MCHC (RBC) [Mass/Vol] 30.1 g/dL Low 32-36 [facility] Comment on above: Performed By: #### L 500.2500, L503.7505, L501.4021, L100.0100 ####[facility] [address] [place], [address] MCV (RBC) [Entitic vol] 89.6 fL Normal 81-99 [facility] Comment on above: Performed By: #### L 500.2500, L503.7505, L501.4021, L100.0100 ####[facility] [address] [place], [address] Monocytes/100 WBC (Bld) 4.8 % Normal 0-10 [facility] Comment on above: Performed By: #### L 500.2500, L503.7505, L501.4021, L100.0100 ####[facility] [address] [place], [address] Neutrophils/100 WBC (Bld) 82.5 % High 47-70 [facility] Comment on above: Performed By: #### L 500.2500, L503.7505, L501.4021, L100.0100 ####[facility] [address] [place], [address] Nucleated RBC (Bld) [#/Vol] 0 10*3/uL Normal 0-5 [facility] Comment on above: Performed By: #### L 500.2500, L503.7505, L501.4021, L100.0100 ####[facility] [address] [place], [address] Platelet mean volume (Bld) [Entitic vol] 10.4 fL Normal 6.2-12.0 [facility] Comment on above: Performed By: #### L 500.2500, L503.7505, L501.4021, L100.0100 ####[facility] [address] [place], [address] Platelets (Bld) [#/Vol] 243 10*3/uL Normal 150-450 [facility] Comment on above: Performed By: #### L 500.2500, L503.7505, L501.4021, L100.0100 ####[facility] [address] [place], [address] RBC (Bld) [#/Vol] 3.74 10*6/uL Low 4.2-5.4 [facility] Comment on above: Performed By: #### L 500.2500, L503.7505, L501.4021, L100.0100 ####[facility] [address] [place], [address] RDW SD 52.9 fl High 35.1-43.9 [facility] Comment on above: Performed By: #### L 500.2500, L503.7505, L501.4021, L100.0100 ####[facility] [address] [place], [address] WBC (Bld) [#/Vol] 9.0 10*3/uL Normal 4.4-11.0 [facility] Comment on above: Performed By: #### L 500.2500, L503.7505, L501.4021, L100.0100 ####[facility] [address] [place], [address] Carbon dioxide, total [Moles /volume] in Central venous bloodOrdered By: Robert Allison on 02-15-2025 CO2 [Moles/Vol] 30.9 mmol/L 21.0-32.0 [facility] Chest 1 View (Portable)on Chest 1 View (Portable) Normal [facility] Chloride assayOrdered By: Ester Allison on 02-15-2025 Chloride [Moles/Vol] 98 mmol/L 98-108 [facility] Emergency Department Summary on 02-15-2025 Emergency Department Summary Normal [facility] Eosinophil percentageOrdered By: Robert Allison on 02-15-2025 Eosinophils/100 WBC (Bld) 0.7 % 0-5 [facility] Erythrocyte distribution wid th ratioOrdered By: Robert Allison on 02-15-2025 Erythrocyte distribution width (RBC) [Ratio] 16.2 % High 11.6-14.6 [facility] Erythrocyte distribution wid th standard deviationOrdered By: Robert Allison on 02-15-2025 Erythrocyte distribution width (RBC) [Ratio] 52.9 fl High 35.1-43.9 [facility] Glomerular filtration rate ( GFR) estimation/1.73 sq m using serum, plasma, or whole bOrdered By: Robert Allison on 02-15-2025 GFR/1.73 sq M.predicted among non-blacks MDRD (S/P/Bld) [Vol rate/Area] 54 mL/min/{1.73_m2} Low >60 [facility] H AND P Exam - Hospitaliston 02-15-2025 H&P Exam - Hospitalist Normal [facility] Hematocrit Auto (Bld) [Volum e fraction]Ordered By: Robert Allison on 02-15-2025 Hematocrit (Bld) [Volume fraction] 33.5 % Low 37-47 [facility] Hemoglobin measurementOrdere d By: Robert Allison on 02-15-2025 Hemoglobin (Bld) [Mass/Vol] 10.1 g/dL Low 12.0-15.0 [facility] Immature granulocytes/100 WB C Auto (Bld)Ordered By: Robert Allison on 02-15-2025 Immature granulocytes/100 WBC (Bld) 1.000 % High 0.0-0.9 [facility] L499.0042on 02-15-2025 Trop T High Sen 113 ng/L Invalid Interpretation Code <=14 [facility] Comment on above: Result Comment: Crit ical Result(s) Called at: 02/15/2025-13:14 by: Pat Smiley.??Results read back by same. Performed By: #### L 499.0042 ####[facility] [address] [place], [address] L499.0043on 02-15-2025 Trop T High Sen 114 ng/L Invalid Interpretation Code <=14 [facility] Comment on above: Result Comment: Hemo lysis present, Results??could be affected.??CRIT CALLED BY ARCHIE MIXON TO JESSICA MOE AT 1607Critical Result(s) Called at: by:??[facility] Performed By: #### L 499.0043 ####[facility] [address] [place], [address] L501.4021on 02-15-2025 Trop T High Sen 117 ng/L Invalid Interpretation Code <=14 [facility] Comment on above: Result Comment: Crit ical Result(s) Called at:02/15/2025-11:47 by: Pat Lopez.??Results read back by same. Performed By: #### L 500.2500, L503.7505, L501.4021, L100.0100 ####[facility] [address] [place], [address] L503.7505on 02-15-2025 Natriuretic peptide B (Bld) [Mass/Vol] 4408 pg/mL High <=1800 [facility] Comment on above: Result Comment: Hear t Failure Unlikely: < 300 pg/mLHeart Failure Likely< 50 Years: > 450 pg/mL50-75 Years: > 900 pg/mL>75 Years: > 1800 pg/mL Performed By: #### L 500.2500, L503.7505, L501.4021, L100.0100 ####[facility] [address] [place], [address] L509.7001on 02-15-2025 Procalcitonin 0.27 ng/mL High <=0.10 [facility] Comment on above: Result Comment: Inte rpretation:<0.10-0.25 ng/mL: Antibiotic therapy discouraged. Bacterialinfection unlikely.0.25-0.50 ng/mL: Antibiotic therapy encouraged. Bacterialinfection possible.>0.50 ng/mL: Antibiotic therapy strongly encouraged.Suggestive of presence of bacterial infection.PCT should always be interpreted in the clinical context ofthe patient. Therefore, clinicians should use the PCTresults in conjunction with other laboratory findings andclinical signs of the patient. Performed By: #### L 509.7001 ####[facility] [address] [place], [address] MCV (mean corpuscular volume ) determinationOrdered By: Remus Ungmasood on 02-15-2025 MCV (RBC) [Entitic vol] 89.6 fL 81-99 [facility] Mean corpuscular hemoglobin (MCH) determinationOrdered By: Remus Ungur on 02-15-2025 MCH (RBC) [Entitic mass] 27.0 pg 27.0-32.0 [facility] Monocyte percentageOrdered B y: Remus Ungur on 02-15-2025 Monocytes/100 WBC (Bld) 4.8 % 0-10 [facility] Natriuretic peptide.B prohor hayley N-Terminal [Mass/volume] in Serum or PlasmaOrdered By: Remus Ungmasood on 02-15-2025 Natriuretic peptide.B prohormone N-Terminal [Mass/Vol] 4408 pg/mL High <1800 [facility] Neutrophil percentageOrdered By: Remus Ungur on 02-15-2025 Neutrophils/100 WBC (Bld) 82.5 % High 47-70 [facility] Platelet countOrdered By: Re mus Ungmasood on 02-15-2025 Platelets (Bld) [#/Vol] 243 10*3/uL 150-450 [facility] Potassium measurement (mass/ volume)Ordered By: Robert Allison on 02-15-2025 Potassium (Unsp spec) [Mass/Vol] 4.3 mmol/L 3.3-5.1 [facility] Procalcitonin [Mass/volume] in Serum or Plasma by ImmunoassayOrdered By: Nestor Bartlett on 02-15-2025 Procalcitonin IA [Mass/Vol] 0.27 ng/mL High <0.11 [facility] RBC Auto (Bld) [#/Vol]Ordere d By: Robert Allison on 02-15-2025 RBC (Bld) [#/Vol] 3.74 10*6/uL Low 4.2-5.4 [facility] Serum creatinine measurement (mass/volume)Ordered By: Robert Allison on 02-15-2025 Creatinine [Mass/Vol] 1.04 mg/dL 0.70-1.20 [facility] Serum glucose measurement (m ass/volume)Ordered By: Robert Allison on 02-15-2025 Glucose [Mass/Vol] 97 mg/dL 70-99 [facility] Serum or plasma calcium melanie urement (mass/volume)Ordered By: Robert Allison on 02-15-2025 Calcium [Mass/Vol] 10.7 mg/dL 7.6-11.0 [facility] Serum or plasma urea nitroge n measurement (mass/volume)Ordered By: Robert Allison on 02-15-2025 Urea nitrogen [Mass/Vol] 24 mg/dL High 4-19 [facility] Sodium levelOrdered By: Lorena Allison on 02-15-2025 Sodium [Moles/Vol] 138 mmol/L 133-145 [facility] Troponin T.cardiac [Mass/vol ume] in Serum or Plasma by High sensitivity methodOrdered By: Robert Allison on 02-15-2025 Troponin T.cardiac High sensitivity method [Mass/Vol] 114 ng/L High <14 [facility] Troponin T.cardiac High sensitivity method [Mass/Vol] 113 ng/L High <14 [facility] Troponin T.cardiac High sensitivity method [Mass/Vol] 117 ng/L High <14 [facility] White blood cell (WBC) count Ordered By: Robert Allison on 02-15-2025 WBC (Bld) [#/Vol] 9.0 10*3/uL 4.4-11.0 [facility] Bedside Glucoseon 02-13-2025 FINGERSTICK GLU 337 mg/dL High [address] [place] [address] Comment on above: Result Comment: KATARINA GEMENT OF PATIENT CARE PER NURSING PROTOCOL Performed By: #### L 501.080 ####[facility] [address] [place], [address] FINGERSTICK GLU 302 mg/dL High [address] [place] [address] Comment on above: Result Comment: KATARINA GEMENT OF PATIENT CARE PER NURSING PROTOCOL Performed By: #### L 501.080 ####[facility] [address] [place], [address] Discharge Instructionon 01-29 Discharge Instruction Normal [facility] deOrdered By: Lucio Borden on 02-13-2025 Glucose [Mass/Vol] 337 mg/dL High [address] [place] [address] Bedside Glucoseon 02-12-2025 FINGERSTICK GLU 236 mg/dL High [address] [place] [address] Comment on above: Result Comment: KATARINA GEMENT OF PATIENT CARE PER NURSING PROTOCOL Performed By: #### L 501.080 ####[facility] [address] [place], [address] FINGERSTICK GLU 112 mg/dL High [address] [place] [address] Comment on above: Result Comment: KATARINA GEMENT OF PATIENT CARE PER NURSING PROTOCOL Performed By: #### L 501.080 ####[facility] [address] [place], [address] FINGERSTICK GLU 471 mg/dL Invalid Interpretation Code [address] [place] [address] Comment on above: Result Comment: Dr Carina javier FollowedMANAGEMENT OF PATIENT CARE PER NURSING PROTOCOL Performed By: #### L 501.080 ####[facility] [address] [place], [address] FINGERSTICK GLU 492 mg/dL Invalid Interpretation Code 74-106 [facility] Comment on above: Result Comment: Repe at TestMANAGEMENT OF PATIENT CARE PER NURSING PROTOCOL Performed By: #### L 501.080 ####[facility] [address] [place], [address] FINGERSTICK GLU 243 mg/dL High [address] [place] [address] Comment on above: Result Comment: KATARINA GEMENT OF PATIENT CARE PER NURSING PROTOCOL Performed By: #### L 501.080 ####[facility] [address] [place], [address] FINGERSTICK GLU 312 mg/dL High [address] [place] [address] Comment on above: Result Comment: KATARINA GEMENT OF PATIENT CARE PER NURSING PROTOCOL Performed By: #### L 501.080 ####[facility] [address] [place], [address] FINGERSTICK GLU 246 mg/dL High [address] [place] [address] Comment on above: Result Comment: KATARINA GEMENT OF PATIENT CARE PER NURSING PROTOCOL Performed By: #### L 501.080 ####[facility] [address] [place], [address] Bedside Glucoseon 02-11-2025 FINGERSTICK GLU 276 mg/dL High [address] [place] [address] Comment on above: Result Comment: KATARINA GEMENT OF PATIENT CARE PER NURSING PROTOCOL Performed By: #### L 501.080 ####[facility] [address] [place], [address] FINGERSTICK GLU 124 mg/dL High [address] [place] [address] Comment on above: Result Comment: KATARINA GEMENT OF PATIENT CARE PER NURSING PROTOCOL Performed By: #### L 501.080 ####[facility] [address] [place], [address] FINGERSTICK GLU 257 mg/dL High [address] [place] [address] Comment on above: Result Comment: KATARINA GEMENT OF PATIENT CARE PER NURSING PROTOCOL Performed By: #### L 501.080 ####[facility] [address] [place], [address] FINGERSTICK GLU 305 mg/dL High [address] [place] [address] Comment on above: Result Comment: KATARINA GEMENT OF PATIENT CARE PER NURSING PROTOCOL Performed By: #### L 501.080 ####[facility] [address] [place], [address] FINGERSTICK GLU 242 mg/dL High [address] [place] [address] Comment on above: Result Comment: KATARINA GEMENT OF PATIENT CARE PER NURSING PROTOCOL Performed By: #### L 501.080 ####[facility] [address] [place], [address] FINGERSTICK GLU 206 mg/dL High [address] [place] [address] Comment on above: Result Comment: KATARINA GEMENT OF PATIENT CARE PER NURSING PROTOCOL Performed By: #### L 501.080 ####[facility] [address] [place], [address] Anion gap in Serum or Plasma Ordered By: Lucio Borden on 02-10-2025 Anion gap [Moles/Vol] 14 mmol/L - [facility] BUN/creatinine ratioOrdered By: Lucio Borden on 02-10-2025 Urea nitrogen/Creatinine [Mass ratio] 20.8 mg/mg [facility] 06-19 [facility] Basic Metabolic Profile (BMP )on 02-10-2025 BUN/CRE 20.[address] Comment on above: Performed By: #### L 500.2500 ####[facility] [address] [place], [address] Calcium [Mass/Vol] 10.0 mg/dL Normal 7.6-11.0 [facility] Comment on above: Performed By: #### L 500.2500 ####[facility] [address] [place], [address] Chloride [Moles/Vol] 98 mmol/L Normal 98-108 [facility] Comment on above: Performed By: #### L 500.2500 ####[facility] [address] [place], [address] CO2 [Moles/Vol] 26.8 mmol/L Normal 21.0-32.0 [facility] Comment on above: Performed By: #### L 500.2500 ####[facility] [address] [place], [address] Creatinine [Mass/Vol] 1.10 mg/dL Normal 0.70-1.20 [facility] Comment on above: Performed By: #### L 500.2500 ####[facility] [address] [place], [address] ECRCL 39.32 ml/min Low 50-250 [facility] Comment on above: Performed By: #### L 500.2500 ####[facility] [address] [place], [address] GAP 14 Normal 5-15 [facility] Comment on above: Performed By: #### L 500.2500 ####[facility] [address] [place], [address] GFR/1.73 sq M.predicted among non-blacks MDRD (S/P/Bld) [Vol rate/Area] 50 mL/min/{1.73_m2} Low >60 [facility] Comment on above: Result Comment: mL/m in/1.73m2 CKD-EPI Creatinine Equation (2020) Performed By: #### L 500.2500 ####[facility] [address] [place], [address] Glucose [Mass/Vol] 361 mg/dL High 70-99 [facility] Comment on above: Performed By: #### L 500.2500 ####[facility] [address] [place], [address] Potassium [Moles/Vol] 4.9 mmol/L Normal 3.3-5.1 [facility] Comment on above: Performed By: #### L 500.2500 ####[facility] [address] [place], [address] Sodium [Moles/Vol] 139 mmol/L Normal 133-145 [facility] Comment on above: Performed By: #### L 500.2500 ####[facility] [address] [place], [address] Urea nitrogen [Mass/Vol] 23 mg/dL High 4-19 [facility] Comment on above: Performed By: #### L 500.2500 ####[facility] [address] [place], [address] Bedside Glucoseon 02-10-2025 FINGERSTICK GLU 167 mg/dL High 74-106 [facility] Comment on above: Result Comment: KATARINA GEMENT OF PATIENT CARE PER NURSING PROTOCOL Performed By: #### L 501.080 ####[facility] [address] [place], [address] FINGERSTICK GLU 78 mg/dL Normal 74-106 [facility] Comment on above: Result Comment: KATARINA GEMENT OF PATIENT CARE PER NURSING PROTOCOL Performed By: #### L 501.080 ####[facility] [address] [place], [address] FINGERSTICK GLU 64 mg/dL Low 74-106 [facility] Comment on above: Result Comment: KATARINA GEMENT OF PATIENT CARE PER NURSING PROTOCOL Performed By: #### L 501.080 ####[facility] [address] [place], [address] FINGERSTICK GLU 222 mg/dL High 74-106 [facility] Comment on above: Result Comment: KATARINA GEMENT OF PATIENT CARE PER NURSING PROTOCOL Performed By: #### L 501.080 ####[facility] [address] [place], [place], [address] Carbon dioxide, total [Moles /volume] in Central venous bloodOrdered By: Lucio Borden on 02-10-2025 CO2 [Moles/Vol] 26.8 mmol/L 21.0-32.0 [facility] Chloride assayOrdered By: Chen Borden on 02-10-2025 Chloride [Moles/Vol] 98 mmol/L 98-108 [facility] Glomerular filtration rate ( GFR) estimation/1.73 sq m using serum, plasma, or whole bOrdered By: Lucio Borden on 02-10-2025 GFR/1.73 sq M.predicted among non-blacks MDRD (S/P/Bld) [Vol rate/Area] 50 mL/min/{1.73_m2} Low >60 [facility] Potassium measurement (mass/ volume)Ordered By: Lucio Borden on 02-10-2025 Potassium (Unsp spec) [Mass/Vol] 4.9 mmol/L 3.3-5.1 [facility] RESPIRATORY PANEL MOLECULARo n 02-10-2025 RP PANEL Normal [facility] Comment on above: Performed By: #### M 100.638 ####[facility] [address] [place], [place], [address] Serum creatinine measurement (mass/volume)Ordered By: Lucio Borden on 02-10-2025 Creatinine [Mass/Vol] 1.10 mg/dL 0.70-1.20 [facility] Serum glucose measurement (m ass/volume)Ordered By: Lucio Borden on 02-10-2025 Glucose [Mass/Vol] 361 mg/dL High 70-99 [facility] Serum or plasma calcium melanie urement (mass/volume)Ordered By: Lucio Borden on 02-10-2025 Calcium [Mass/Vol] 10.0 mg/dL 7.6-11.0 [facility] Serum or plasma urea nitroge n measurement (mass/volume)Ordered By: Lucio Borden on 02-10-2025 Urea nitrogen [Mass/Vol] 23 mg/dL High 4-19 [facility] Sodium levelOrdered By: Lucio Borden on 02-10-2025 Sodium [Moles/Vol] 139 mmol/L 133-145 [facility] Absolute lymphocyte countOrd ered By: Jeremiah Corrales on 02-09-2025 Lymphocytes Auto (Unsp spec) [#/Vol] 0.69 10*3/uL Low 0.83-4.51 [facility] [facility] Anion gap in Serum or Plasma Ordered By: Jeremiah Corrales on 02-09-2025 Anion gap [Moles/Vol] 12 mmol/L 5-15 [facility] Automated lymphocyte count a s percentage of total leukocytesOrdered By: Jeremiah Corrales on 02-09-2025 Lymphocytes/100 WBC Auto (Unsp spec) 7.3 % Low 19-41 [facility] BUN/creatinine ratioOrdered By: Jeremiah Corrales on 02-09-2025 Urea nitrogen/Creatinine [Mass ratio] 20.2 mg/mg High 10-20 [facility] Basic Metabolic Profile (BMP )on 02-09-2025 BUN/CRE 20.2 RATIO High - [facility] Comment on above: Performed By: #### L 501.4021, L500.2500, L100.0100 ####[facility] [address] [place], [address] Calcium [Mass/Vol] 10.2 mg/dL Normal 7.6-11.0 [facility] Comment on above: Performed By: #### L 501.4021, L500.2500, L100.0100 ####[facility] [address] [place], [address] Chloride [Moles/Vol] 98 mmol/L Normal 98-108 [facility] Comment on above: Performed By: #### L 501.4021, L500.2500, L100.0100 ####[facility] [address] [place], [address] CO2 [Moles/Vol] 29.9 mmol/L Normal 21.0-32.0 [facility] Comment on above: Performed By: #### L 501.4021, L500.2500, L100.0100 ####[facility] [address] [place], [address] Creatinine [Mass/Vol] 1.16 mg/dL Normal 0.70-1.20 [facility] Comment on above: Performed By: #### L 501.4021, L500.2500, L100.0100 ####[facility] [address] [place], [address] ECRCL 37.42 ml/min Low 50-250 [facility] Comment on above: Performed By: #### L 501.4021, L500.2500, L100.0100 ####[facility] [address] [place], [address] GAP 12 Normal 5-15 [facility] Comment on above: Performed By: #### L 501.4021, L500.2500, L100.0100 ####[facility] [address] [place], [address] GFR/1.73 sq M.predicted among non-blacks MDRD (S/P/Bld) [Vol rate/Area] 47 mL/min/{1.73_m2} Low >60 [facility] Comment on above: Result Comment: mL/m in/1.73m2 CKD-EPI Creatinine Equation (2020) Performed By: #### L 501.4021, L500.2500, L100.0100 ####[facility] [address] [place], [address] Glucose [Mass/Vol] 173 mg/dL High 70-99 [facility] Comment on above: Performed By: #### L 501.4021, L500.2500, L100.0100 ####[facility] [address] [place], [address] Potassium [Moles/Vol] 4.3 mmol/L Normal 3.3-5.1 [facility] Comment on above: Performed By: #### L 501.4021, L500.2500, L100.0100 ####[facility] [address] [place], [address] Sodium [Moles/Vol] 140 mmol/L Normal 133-145 [facility] Comment on above: Performed By: #### L 501.4021, L500.2500, L100.0100 ####[facility] [address] [place], [address] Urea nitrogen [Mass/Vol] 23 mg/dL High 4-19 [facility] Comment on above: Performed By: #### L 501.4021, L500.2500, L100.0100 ####[facility] [address] [place], [address] Basophil percentageOrdered B y: Jeremiah Corrales on 02-09-2025 Basophils/100 WBC (Bld) 0.4 % 0-1 [facility] Bedside Glucoseon 02-09-2025 FINGERSTICK GLU 401 mg/dL High 74-106 [facility] Comment on above: Result Comment: KATARINA GEMENT OF PATIENT CARE PER NURSING PROTOCOL Performed By: #### L 501.080 ####[facility] [address] [place], [address] FINGERSTICK GLU 248 mg/dL High 74-106 [facility] Comment on above: Result Comment: KATARINA GEMENT OF PATIENT CARE PER NURSING PROTOCOL Performed By: #### L 501.080 ####[facility] [address] [place], [address] CBC W/Diff, Automatedon 01-29 PLT EST ADEQUATE Normal ADEQ [facility] Comment on above: Performed By: #### L 501.4021, L500.2500, L100.0100 ####[facility] [address] [place], [address] Carbon dioxide, total [Moles /volume] in Central venous bloodOrdered By: Jeremiah Corrales on 02-09-2025 CO2 [Moles/Vol] 29.9 mmol/L 21.0-32.0 [facility] Chest PA and Lateralon 02-09 Chest PA and Lateral Normal [facility] Chloride assayOrdered By: Enio Corrales on 02-09-2025 Chloride [Moles/Vol] 98 mmol/L 98-108 [facility] Emergency Department Summary on 02-09-2025 Emergency Department Summary Normal [facility] Eosinophil percentageOrdered By: Jeremiah Corrales on 02-09-2025 Eosinophils/100 WBC (Bld) 0.1 % 0-5 [facility] Erythrocyte distribution wid th ratioOrdered By: Jeremiah Corrales on 02-09-2025 Erythrocyte distribution width (RBC) [Ratio] 15.8 % High 11.6-14.6 [facility] Erythrocyte distribution wid th standard deviationOrdered By: Jeremiah Corrales on 02-09-2025 Erythrocyte distribution width (RBC) [Ratio] 51.3 fl High 35.1-43.9 [facility] Glomerular filtration rate ( GFR) estimation/1.73 sq m using serum, plasma, or whole bOrdered By: Jeremiah Corrales on 02-09-2025 GFR/1.73 sq M.predicted among non-blacks MDRD (S/P/Bld) [Vol rate/Area] 47 mL/min/{1.73_m2} Low >60 [facility] H AND P Exam - Hospitaliston 02-09-2025 H&P Exam - Hospitalist Normal [facility] Hematocrit Auto (Bld) [Volum e fraction]Ordered By: Jeremiah Corrales on 02-09-2025 Hematocrit (Bld) [Volume fraction] 37.9 % 37-47 [facility] Hemoglobin measurementOrdere d By: Jeremiah Corrales on 02-09-2025 Hemoglobin (Bld) [Mass/Vol] 11.5 g/dL Low 12.0-15.0 [facility] Immature granulocytes/100 WB C Auto (Bld)Ordered By: Jeremiah Corrales on 02-09-2025 Immature granulocytes/100 WBC (Bld) 0.800 % 0.0-0.9 [facility] L499.0042on 02-09-2025 Trop T High Sen 119 ng/L Invalid Interpretation Code <=14 [facility] Comment on above: Result Comment: Crit ical Result(s) Called VANE GRAVES at: 1520 by:VIET??Results read back by same. Performed By: #### L 499.0042 ####[facility] [address] [facility] [place], [address] L501.4021on 02-09-2025 Trop T High Sen 122 ng/L Invalid Interpretation Code <=14 [facility] Comment on above: Result Comment: Crit ical Result(s) Called at 1330: by: SHARONA ROWELL. ??Results read back by same. Performed By: #### L 501.4021, L500.2500, L100.0100 ####[facility] [address] [place], [address] L503.7505on 02-09-2025 Natriuretic peptide B (Bld) [Mass/Vol] 9616 pg/mL High <=1800 [facility] Comment on above: Result Comment: Hear t Failure Unlikely: < 300 pg/mLHeart Failure Likely< 50 Years: > 450 pg/mL50-75 Years: > 900 pg/mL>75 Years: > 1800 pg/mL Performed By: #### L 503.7505 ####[facility] [address] [facility] [address] [place], [place], [address] MCV (mean corpuscular volume ) determinationOrdered By: Jeremiah Corrales on 02-09-2025 MCV (RBC) [Entitic vol] 89.8 fL 81-99 [facility] Mean corpuscular hemoglobin (MCH) determinationOrdered By: Jeremiah Corrales on 02-09-2025 MCH (RBC) [Entitic mass] 27.3 pg 27.0-32.0 [facility] Monocyte percentageOrdered B y: Jeremiah Corrales on 02-09-2025 Monocytes/100 WBC (Bld) 4.5 % 0-10 [facility] Natriuretic peptide.B prohor hayley N-Terminal [Mass/volume] in Serum or PlasmaOrdered By: Jeremiah Corrales on 02-09-2025 Natriuretic peptide.B prohormone N-Terminal [Mass/Vol] 9616 pg/mL High <1800 [facility] Neutrophil percentageOrdered By: Jeremiah Corrales on 02-09-2025 Neutrophils/100 WBC (Bld) 86.9 % High 47-70 [facility] Platelet countOrdered By: Enio Corrales on 02-09-2025 Platelet count TNP [facility] Platelet estimateOrdered By: Jeremiah Corrales on 02-09-2025 Platelets LM Ql (Bld) ADEQUATE ADEQ [facility] Potassium measurement (mass/ volume)Ordered By: Jeremiah Corrales on 02-09-2025 Potassium (Unsp spec) [Mass/Vol] 4.3 mmol/L 3.3-5.1 [facility] RBC Auto (Bld) [#/Vol]Ordere d By: Jeremiah Corrales on 02-09-2025 RBC (Bld) [#/Vol] 4.22 10*6/uL 4.2-5.4 [facility] Respiratory pathogens detect ion panel by molecular detection methodOrdered By: Tono Gomez on 02-09-2025 Respiratory pathogens DNA and RNA panel BEBETO+probe (Resp) Parainfluenza 3 Abnormal [facility] Serum creatinine measurement (mass/volume)Ordered By: Jeremiah Corrales on 02-09-2025 Creatinine [Mass/Vol] 1.16 mg/dL 0.70-1.20 [facility] Serum glucose measurement (m ass/volume)Ordered By: Jeremiah Corrales on 02-09-2025 Glucose [Mass/Vol] 173 mg/dL High 70-99 [facility] Serum or plasma calcium melanie urement (mass/volume)Ordered By: Jeremiah Corrales on 02-09-2025 Calcium [Mass/Vol] 10.2 mg/dL 7.6-11.0 [facility] Serum or plasma urea nitroge n measurement (mass/volume)Ordered By: Jeremiah Corrales on 02-09-2025 Urea nitrogen [Mass/Vol] 23 mg/dL High 4-19 [facility] Sodium levelOrdered By: Jeremiah Corrales on 02-09-2025 Sodium [Moles/Vol] 140 mmol/L 133-145 [facility] Troponin T.cardiac [Mass/vol ume] in Serum or Plasma by High sensitivity methodOrdered By: Jeremiah Corrales on 02-09-2025 Troponin T.cardiac High sensitivity method [Mass/Vol] 119 ng/L High <14 [facility] Troponin T.cardiac High sensitivity method [Mass/Vol] 122 ng/L High <14 [facility] White blood cell (WBC) count Ordered By: Jeremiah Corrales on 02-09-2025 WBC (Bld) [#/Vol] 9.4 10*3/uL 4.4-11.0 [facility] Absolute lymphocyte countOrd ered By: Ramone Smiley on 02-07-2025 Lymphocytes Auto (Unsp spec) [#/Vol] 0.84 10*3/uL 0.83-4.51 [facility] Anion gap in Serum or Plasma Ordered By: Ramone Smiley on 02-07-2025 Anion gap [Moles/Vol] 12 mmol/L 5- [facility] Automated lymphocyte count a s percentage of total leukocytesOrdered By: Ramone Smiley on 02-07-2025 Lymphocytes/100 WBC Auto (Unsp spec) 7.3 % Low - [facility] BUN/creatinine ratioOrdered By: Ramone Smiley on 02-07-2025 Urea nitrogen/Creatinine [Mass ratio] 17.7 mg/mg 10- [facility] Basophil percentageOrdered B y: Ramone Smiley on 02-07-2025 Basophils/100 WBC (Bld) 0.1 % 0- [facility] Bilirubin, totalOrdered By: Ramone Smiley on 02-07-2025 Bilirubin [Mass/Vol] 0.25 mg/dL 0.00-1.30 [facility] CBC W/Diff, Automatedon 01-29 Absolute Lymph 0.84 X10 3/uL Normal 0.83-4.51 [facility] Comment on above: Order Comment: Order Date: 02/07/25Order Info: 0184-1 - CBCD Performed By: #### L 100.0100, L500.1020 ####[facility] [address] [place], [place], [id number] Absolute Neut 10.0 X10 3/uL High 2.0-7.7 [facility] Comment on above: Order Comment: Order Date: 02/07/25Order Info: 0184-1 - CBCD Performed By: #### L 100.0100, L500.4050 ####[facility] [address] [place], [address] Basophils/100 WBC (Bld) 0.1 % Normal 0-1 [facility] Comment on above: Order Comment: Order Date: 02/07/25Order Info: 0184-1 - CBCD Performed By: #### L 100.0100, L500.4050 ####[facility] [address] [place], [address] Eosinophils/100 WBC (Bld) 0.0 % Normal 0-5 [facility] Comment on above: Order Comment: Order Date: 02/07/25Order Info: 0184-1 - CBCD Performed By: #### L 100.0100, L500.4050 ####[facility] [address] [place], [address] Erythrocyte distribution width (RBC) [Ratio] 15.7 % High 11.6-14.6 [facility] Comment on above: Order Comment: Order Date: 02/07/25Order Info: 0184-1 - CBCD Performed By: #### L 100.0100, L500.4050 ####[facility] [address] [place], [address] Hematocrit (Bld) [Volume fraction] 36.8 % Low 37-47 [facility] Comment on above: Order Comment: Order Date: 02/07/25Order Info: 0184-1 - CBCD Performed By: #### L 100.0100, L500.4050 ####[facility] [address] [place], [address] Hemoglobin (Bld) [Mass/Vol] 11.4 g/dL Low 12.0-15.0 [facility] Comment on above: Order Comment: Order Date: 02/07/25Order Info: 0184-1 - CBCD Performed By: #### L 100.0100, L500.4050 ####[facility] [address] [place], [address] IG% 0.400 Normal 0.0-0.9 [facility] Comment on above: Order Comment: Order Date: 02/07/25Order Info: 0184-1 - CBCD Result Comment: IG% - Immature Granulocytes (promyelocytes, myelocytes andmetamyelocytes) > 1% indicates that a LEFT SHIFT is Present. Performed By: #### L 100.0100, L500.4050 ####[facility] [address] [place], [address] Lymphocytes/100 WBC (Bld) 7.3 % Low 19-41 [facility] Comment on above: Order Comment: Order Date: 02/07/25Order Info: 018- - CBCD Performed By: #### L 100.0100, L500.4050 ####[facility] [address] [place], [address] MCH (RBC) [Entitic mass] 27.9 pg Normal 27.0-32.0 [facility] Comment on above: Order Comment: Order Date: 02/07/25Order Info: 0184- - CBCD Performed By: #### L 100.0100, L500.4050 ####[facility] [address] [place], [address] MCHC (RBC) [Mass/Vol] 31.0 g/dL Low 32-36 [facility] Comment on above: Order Comment: Order Date: 02/07/25Order Info: 0184-1 - CBCD Performed By: #### L 100.0100, L500.4050 ####[facility] [address] [place], [address] MCV (RBC) [Entitic vol] 90.2 fL Normal 81-99 [facility] Comment on above: Order Comment: Order Date: 02/07/25Order Info: 0184-1 - CBCD Performed By: #### L 100.0100, L500.4050 ####[facility] [address] [place], [address] Monocytes/100 WBC (Bld) 5.2 % Normal 0-10 [facility] Comment on above: Order Comment: Order Date: 02/07/25Order Info: 0184-1 - CBCD Performed By: #### L 100.0100, L500.4050 ####[facility] [address] [place], [address] Neutrophils/100 WBC (Bld) 87.0 % High 47-70 [facility] Comment on above: Order Comment: Order Date: 02/07/25Order Info: 0184-1 - CBCD Performed By: #### L 100.0100, L500.4050 ####[facility] [address] [place], [address] Nucleated RBC (Bld) [#/Vol] 0 10*3/uL Normal 0-5 [facility] Comment on above: Order Comment: Order Date: 02/07/25Order Info: 0184-1 - CBCD Performed By: #### L 100.0100, L500.4050 ####[facility] [address] [place], [address] Platelet mean volume (Bld) [Entitic vol] 11.5 fL Normal 6.2-12.0 [facility] Comment on above: Order Comment: Order Date: 02/07/25Order Info: 0184-1 - CBCD Performed By: #### L 100.0100, L500.4050 ####[facility] [address] [place], [address] Platelets (Bld) [#/Vol] 247 10*3/uL Normal 150-450 [facility] Comment on above: Order Comment: Order Date: 02/07/25Order Info: 0184-1 - CBCD Performed By: #### L 100.0100, L500.4050 ####[facility] [address] [place], [address] RBC (Bld) [#/Vol] 4.08 10*6/uL Low 4.2-5.4 [facility] Comment on above: Order Comment: Order Date: 02/07/25Order Info: 0184-1 - CBCD Performed By: #### L 100.0100, L500.4050 ####[facility] [address] [place], [address] RDW SD 51.8 fl High 35.1-43.9 [facility] Comment on above: Order Comment: Order Date: 02/07/25Order Info: 0184-1 - CBCD Performed By: #### L 100.0100, L500.4050 ####[facility] [address] [place], [address] WBC (Bld) [#/Vol] 11.5 10*3/uL High 4.4-11.0 [facility] Comment on above: Order Comment: Order Date: 02/07/25Order Info: 0184-1 - CBCD Performed By: #### L 100.0100, L500.4050 ####[facility] [address] [place], [address] Carbon dioxide, total [Moles /volume] in Central venous bloodOrdered By: Ramone Smiley on 02-07-2025 CO2 [Moles/Vol] 27.9 mmol/L 21.0-32.0 [facility] Chloride assayOrdered By: Richar Smiley on 02-07-2025 Chloride [Moles/Vol] 96 mmol/L Low 98-108 [facility] Comprehensive Metabolic Prof ilon 02-07-2025 Albumin [Mass/Vol] 3.3 g/dL Low 3.4-4.8 [facility] Comment on above: Order Comment: URINE UTOOrder Date: 02/07/25Order Info: 0786-1 - CMP Performed By: #### L 100.0100, L500.4050 ####[facility] [address] [place], [address] Albumin/Globulin [Mass ratio] 1.0 {ratio} Normal 0.9-2.4 [facility] Comment on above: Order Comment: URINE UTOOrder Date: 02/07/25Order Info: 0786-1 - CMP Performed By: #### L 100.0100, L500.4050 ####[facility] [address] [place], [address] ALK PHOS 86 U/L Normal 35-104 [facility] Comment on above: Order Comment: URINE UTOOrder Date: 02/07/25Order Info: 0786-1 - CMP Performed By: #### L 100.0100, L500.4050 ####[facility] [address] [place], [address] ALT [Catalytic activity/Vol] 20 U/L Normal <=34 [facility] Comment on above: Order Comment: URINE UTOOrder Date: 02/07/25Order Info: 0786-1 - CMP Performed By: #### L 100.0100, L500.4050 ####[facility] [address] [place], [address] AST [Catalytic activity/Vol] 29 U/L Normal <=31 [facility] Comment on above: Order Comment: URINE UTOOrder Date: 02/07/25Order Info: 0786-1 - CMP Performed By: #### L 100.0100, L500.4050 ####[facility] [address] [place], [address] Bilirubin [Mass/Vol] 0.25 mg/dL Normal 0.00-1.30 [facility] Comment on above: Order Comment: URINE UTOOrder Date: 02/07/25Order Info: 0786-1 - CMP Performed By: #### L 100.0100, L500.4050 ####[facility] [address] [place], [address] BUN/CRE 17.7 RATIO Normal 10-20 [facility] Comment on above: Order Comment: URINE UTOOrder Date: 02/07/25Order Info: 07-1 - CMP Performed By: #### L 100.0100, L500.4050 ####[facility] [address] [place], [address] Calcium [Mass/Vol] 10.2 mg/dL Normal 7.6-11.0 [facility] Comment on above: Order Comment: URINE UTOOrder Date: 02/07/25Order Info: 07-1 - CMP Performed By: #### L 100.0100, L500.4050 ####[facility] [address] [place], [address] Chloride [Moles/Vol] 96 mmol/L Low 98-108 [facility] Comment on above: Order Comment: URINE UTOOrder Date: 02/07/25Order Info: 07-1 - CMP Performed By: #### L 100.0100, L500.4050 ####[facility] [address] [place], [address] CO2 [Moles/Vol] 27.9 mmol/L Normal 21.0-32.0 [facility] Comment on above: Order Comment: URINE UTOOrder Date: 02/07/25Order Info: 0786-1 - CMP Performed By: #### L 100.0100, L500.4050 ####[facility] [address] [place], [address] Creatinine [Mass/Vol] 1.37 mg/dL High 0.70-1.20 [facility] Comment on above: Order Comment: URINE UTOOrder Date: 02/07/25Order Info: 0786-1 - CMP Performed By: #### L 100.0100, L500.4050 ####[facility] [address] [place], [address] GAP 12 Normal 5-15 [facility] Comment on above: Order Comment: URINE UTOOrder Date: 02/07/25Order Info: 07-1 - CMP Performed By: #### L 100.0100, L500.4050 ####[facility] [address] [place], [address] GFR/1.73 sq M.predicted among non-blacks MDRD (S/P/Bld) [Vol rate/Area] 39 mL/min/{1.73_m2} Low >60 [facility] Comment on above: Order Comment: URINE UTOOrder Date: 02/07/25Order Info: 07-1 - CMP Result Comment: mL/m in/1.73m2 CKD-EPI Creatinine Equation (2020) Performed By: #### L 100.0100, L500.4050 ####[facility] [address] [place], [address] Globulin (S) [Mass/Vol] 3.2 g/dL Normal 2.2-4.2 [facility] Comment on above: Order Comment: URINE UTOOrder Date: 02/07/25Order Info: 07-1 - CMP Performed By: #### L 100.0100, L500.4050 ####[facility] [address] [place], [address] Glucose [Mass/Vol] 254 mg/dL High 70-99 [facility] Comment on above: Order Comment: URINE UTOOrder Date: 02/07/25Order Info: 07-1 - CMP Performed By: #### L 100.0100, L500.4050 ####[facility] [address] [place], [address] Potassium [Moles/Vol] 5.1 mmol/L Normal 3.3-5.1 [facility] Comment on above: Order Comment: URINE UTOOrder Date: 02/07/25Order Info: 0786-1 - CMP Performed By: #### L 100.0100, L500.4050 ####[facility] [address] [place], [address] Sodium [Moles/Vol] 136 mmol/L Normal 133-145 [facility] Comment on above: Order Comment: URINE UTOOrder Date: 02/07/25Order Info: 0786-1 - CMP Performed By: #### L 100.0100, L500.4050 ####[facility] [address] [place], [address] T PROT 6.5 g/dL Normal 5.9-8.4 [facility] Comment on above: Order Comment: URINE UTOOrder Date: 02/07/25Order Info: 0786-1 - CMP Performed By: #### L 100.0100, L500.4050 ####[facility] [address] [place], [address] Urea nitrogen [Mass/Vol] 24 mg/dL High 4-19 [facility] Comment on above: Order Comment: URINE UTOOrder Date: 02/07/25Order Info: 0786-1 - CMP Performed By: #### L 100.0100, L500.4050 ####[facility] [address] [place], [address] Eosinophil percentageOrdered By: Ramone Smiley on 02-07-2025 Eosinophils/100 WBC (Bld) 0.0 % 0-5 [facility] Erythrocyte distribution wid th ratioOrdered By: Ramone Smiley on 02-07-2025 Erythrocyte distribution width (RBC) [Ratio] 15.7 % High 11.6-14.6 [facility] Erythrocyte distribution wid th standard deviationOrdered By: Ramone Smiley on 02-07-2025 Erythrocyte distribution width (RBC) [Ratio] 51.8 fl High 35.1-43.9 [facility] Glomerular filtration rate ( GFR) estimation/1.73 sq m using serum, plasma, or whole bOrdered By: Ramone Smiley on 02-07-2025 GFR/1.73 sq M.predicted among non-blacks MDRD (S/P/Bld) [Vol rate/Area] 39 mL/min/{1.73_m2} Low >60 [facility] Hematocrit Auto (Bld) [Volum e fraction]Ordered By: Ramone Smiley on 02-07-2025 Hematocrit (Bld) [Volume fraction] 36.8 % Low 37-47 [facility] Hemoglobin measurementOrdere d By: Ramone Smiley on 02-07-2025 Hemoglobin (Bld) [Mass/Vol] 11.4 g/dL Low 12.0-15.0 [facility] Immature granulocytes/100 WB C Auto (Bld)Ordered By: Ramone Smiley on 02-07-2025 Immature granulocytes/100 WBC (Bld) 0.400 % 0.0-0.9 [facility] MCV (mean corpuscular volume ) determinationOrdered By: Ramone Smiley on 02-07-2025 MCV (RBC) [Entitic vol] 90.2 fL 81-99 [facility] [facility] Mean corpuscular hemoglobin (MCH) determinationOrdered By: Ramone Smiley on 02-07-2025 MCH (RBC) [Entitic mass] 27.9 pg 27.0-32.0 [facility] Monocyte percentageOrdered B y: Ramone Smiley on 02-07-2025 Monocytes/100 WBC (Bld) 5.2 % 0-10 [facility] Neutrophil percentageOrdered By: Ramone Smiley on 02-07-2025 Neutrophils/100 WBC (Bld) 87.0 % High 47-70 [facility] No Panel InformationOrdered By: Ramone Smiley on 02-07-2025 29 U/L <32 [facility] Platelet countOrdered By: Richar Smiley on 02-07-2025 Platelets (Bld) [#/Vol] 247 10*3/uL 150-450 [facility] Potassium measurement (mass/ volume)Ordered By: Ramone Smiley on 02-07-2025 Potassium (Unsp spec) [Mass/Vol] 5.1 mmol/L 3.3-5.1 [facility] RBC Auto (Bld) [#/Vol]Ordere d By: Ramone Smiley on 02-07-2025 RBC (Bld) [#/Vol] 4.08 10*6/uL Low 4.2-5.4 [facility] Serum creatinine measurement (mass/volume)Ordered By: Ramone Smiley on 02-07-2025 Creatinine [Mass/Vol] 1.37 mg/dL High 0.70-1.20 [facility] Serum globulin measurementOr dered By: Ramone Smiley on 02-07-2025 Globulin (S) [Mass/Vol] 3.2 g/dL 2.2-4.2 [facility] Serum glucose measurement (m ass/volume)Ordered By: Ramone Smiley on 02-07-2025 Glucose [Mass/Vol] 254 mg/dL High 70-99 [facility] Serum or plasma alanine kelley otransferase (ALT) measurementOrdered By: Ramone Smiley on 02-07-2025 ALT [Catalytic activity/Vol] 20 U/L <35 [facility] Serum or plasma albumin melanie urement (mass/volume)Ordered By: Ramone Smiley on 02-07-2025 Albumin [Mass/Vol] 3.3 g/dL Low 3.4-4.8 [facility] Serum or plasma albumin/glob ulin mass ratioOrdered By: Ramone Smiley on 02-07-2025 Albumin/Globulin [Mass ratio] 1.0 {ratio} 0.9-2.4 [facility] Serum or plasma alkaline lissa sphatase measurementOrdered By: Ramone Smiley on 02-07-2025 ALP [Catalytic activity/Vol] 86 U/L 35-104 [facility] Serum or plasma calcium melanie urement (mass/volume)Ordered By: Ramone Smiley on 02-07-2025 Calcium [Mass/Vol] 10.2 mg/dL 7.6-11.0 [facility] Serum or plasma urea nitroge n measurement (mass/volume)Ordered By: Ramone Smiley on 02-07-2025 Urea nitrogen [Mass/Vol] 24 mg/dL High 4-19 [facility] Sodium levelOrdered By: Ramone Smiley on 02-07-2025 Sodium [Moles/Vol] 136 mmol/L 133-145 [facility] Total proteinOrdered By: Lilliam Smiley on 02-07-2025 Protein [Mass/Vol] 6.5 g/dL 5.9-8.4 [facility] White blood cell (WBC) count Ordered By: Ramone Smiley on 02-07-2025 WBC (Bld) [#/Vol] 11.5 10*3/uL High 4.4-11.0 [facility] Bedside Glucoseon 02-06-2025 FINGERSTICK GLU 190 mg/dL High 74-106 [facility] Comment on above: Result Comment: KATARINA GEMENT OF PATIENT CARE PER NURSING PROTOCOL Performed By: #### L 501.080 ####[facility] [address] [facility] [address] FINGERSTICK GLU 237 mg/dL High 74-106 [facility] Comment on above: Result Comment: KATARINA GEMENT OF PATIENT CARE PER NURSING PROTOCOL Performed By: #### L 501.080 ####[facility] [address] [facility] [address] Discharge Instructionon Discharge Instruction Normal [facility] Electrocardiogram reportOrde red By: Marcelina Soto on 02-06-2025 EKG study [facility] Work Phone: [facility] deOrdered By: Lucio Borden on 02-06-2025 Glucose [Mass/Vol] 190 mg/dL High 74-106 [facility] Anion gap in Serum or Plasma Ordered By: Lucio Borden on 02-05-2025 Anion gap [Moles/Vol] 15 mmol/L 5-15 [facility] BUN/creatinine ratioOrdered By: Lucio Borden on 02-05-2025 Urea nitrogen/Creatinine [Mass ratio] 16.1 mg/mg 10- [facility] Basic Metabolic Profile (BMP )on 02-05-2025 BUN/CRE 16.1 RATIO Normal - [facility] Comment on above: Performed By: #### L 500.2500 ####[facility] [address] [place], [place], [address] Calcium [Mass/Vol] 9.1 mg/dL Normal 7.6-11.0 [facility] Comment on above: Performed By: #### L 500.2500 ####[facility] [address] [place], [address] Chloride [Moles/Vol] 94 mmol/L Low 98-108 [facility] Comment on above: Performed By: #### L 500.2500 ####[facility] [address] [place], [address] CO2 [Moles/Vol] 26.4 mmol/L Normal 21.0-32.0 [facility] Comment on above: Performed By: #### L 500.2500 ####[facility] [address] [place], [address] Creatinine [Mass/Vol] 1.06 mg/dL Normal 0.70-1.20 [facility] Comment on above: Performed By: #### L 500.2500 ####[facility] [address] [place], [address] ECRCL 39.38 ml/min Low 50-250 [facility] Comment on above: Performed By: #### L 500.2500 ####[facility] [address] [place], [address] GAP 15 Normal 5-15 [facility] Comment on above: Performed By: #### L 500.2500 ####[facility] [address] [place], [address] GFR/1.73 sq M.predicted among non-blacks MDRD (S/P/Bld) [Vol rate/Area] 53 mL/min/{1.73_m2} Low >60 [facility] Comment on above: Result Comment: mL/m in/1.73m2 CKD-EPI Creatinine Equation (2020) Performed By: #### L 500.2500 ####[facility] [address] [place], [address] Glucose [Mass/Vol] 272 mg/dL High 70-99 [facility] Comment on above: Performed By: #### L 500.2500 ####[facility] [address] [place], [address] Potassium [Moles/Vol] 4.2 mmol/L Normal 3.3-5.1 [facility] Comment on above: Performed By: #### L 500.2500 ####[facility] [address] [place], [address] Sodium [Moles/Vol] 135 mmol/L Normal 133-145 [facility] Comment on above: Performed By: #### L 500.2500 ####[facility] [address] [place], [address] Urea nitrogen [Mass/Vol] 17 mg/dL Normal 4-19 [facility] Comment on above: Performed By: #### L 500.2500 ####[facility] [address] [place], [address] Bedside Glucoseon 02-05-2025 FINGERSTICK GLU 156 mg/dL High 74-106 [facility] Comment on above: Result Comment: KATARINA GEMENT OF PATIENT CARE PER NURSING PROTOCOL Performed By: #### L 501.080 ####[facility] [address] [place], [address] FINGERSTICK GLU 128 mg/dL High 74-106 [facility] Comment on above: Result Comment: KATARINA GEMENT OF PATIENT CARE PER NURSING PROTOCOL Performed By: #### L 501.080 ####[facility] [address] [place], [address] FINGERSTICK GLU 296 mg/dL High 74-106 [facility] Comment on above: Result Comment: KATARINA GEMENT OF PATIENT CARE PER NURSING PROTOCOL Performed By: #### L 501.080 ####[facility] [address] [place], [address] FINGERSTICK GLU 238 mg/dL High 74-106 [facility] Comment on above: Result Comment: KATARINA GEMENT OF PATIENT CARE PER NURSING PROTOCOL Performed By: #### L 501.080 ####[facility] [address] [place], [address] Carbon dioxide, total [Moles /volume] in Central venous bloodOrdered By: Lucio Borden on 02-05-2025 CO2 [Moles/Vol] 26.4 mmol/L 21.0-32.0 [facility] Chloride assayOrdered By: Chen Borden on 02-05-2025 Chloride [Moles/Vol] 94 mmol/L Low 98-108 [facility] Glomerular filtration rate ( GFR) estimation/1.73 sq m using serum, plasma, or whole bOrdered By: Lucio Borden on 02-05-2025 GFR/1.73 sq M.predicted among non-blacks MDRD (S/P/Bld) [Vol rate/Area] 53 mL/min/{1.73_m2} Low >60 [facility] Potassium measurement (mass/ volume)Ordered By: Lucio Borden on 02-05-2025 Potassium (Unsp spec) [Mass/Vol] 4.2 mmol/L 3.3-5.1 [facility] Serum creatinine measurement (mass/volume)Ordered By: Lucio Borden on 02-05-2025 Creatinine [Mass/Vol] 1.06 mg/dL 0.70-1.20 [facility] Serum glucose measurement (m ass/volume)Ordered By: Lucio Borden on 02-05-2025 Glucose [Mass/Vol] 272 mg/dL High 70-99 [facility] Serum or plasma calcium melanie urement (mass/volume)Ordered By: Lucio Borden on 02-05-2025 Calcium [Mass/Vol] 9.1 mg/dL 7.6-11.0 [facility] Serum or plasma urea nitroge n measurement (mass/volume)Ordered By: Lucio Borden on 02-05-2025 Urea nitrogen [Mass/Vol] 17 mg/dL 4-19 [facility] Sodium levelOrdered By: Lucio Borden on 02-05-2025 Sodium [Moles/Vol] 135 mmol/L 133-145 [facility] 12 Lead EKGon 02-04-2025 12 Lead EKG Normal [facility] Absolute lymphocyte countOrd ered By: Aj Holley on 02-04-2025 Lymphocytes Auto (Unsp spec) [#/Vol] 1.75 10*3/uL 0.83-4.51 [facility] Anion gap in Serum or Plasma Ordered By: Aj Holley on 02-04-2025 Anion gap [Moles/Vol] 16 mmol/L High 5-15 [facility] Automated lymphocyte count a s percentage of total leukocytesOrdered By: Aj Holley on 02-04-2025 Lymphocytes/100 WBC Auto (Unsp spec) 15.7 % Low 19-41 [facility] BUN/creatinine ratioOrdered By: Aj Holley on 02-04-2025 Urea nitrogen/Creatinine [Mass ratio] 13.2 mg/mg 10-20 [facility] Basic Metabolic Profile (BMP )on 02-04-2025 BUN/CRE 13.2 RATIO Normal -20 [facility] Comment on above: Performed By: #### L 500.2500, L100.0100 ####[facility] [address] [place], [address] Calcium [Mass/Vol] 8.9 mg/dL Normal 7.6-11.0 [facility] Comment on above: Performed By: #### L 500.2500, L100.0100 ####[facility] [address] [place], [address] Chloride [Moles/Vol] 95 mmol/L Low 98-108 [facility] Comment on above: Performed By: #### L 500.2500, L100.0100 ####[facility] [address] [place], [address] CO2 [Moles/Vol] 25.9 mmol/L Normal 21.0-32.0 [facility] Comment on above: Performed By: #### L 500.2500, L100.0100 ####[facility] [address] [place], [address] Creatinine [Mass/Vol] 1.14 mg/dL Normal 0.70-1.20 [facility] Comment on above: Performed By: #### L 500.2500, L100.0100 ####[facility] [address] [place], [address] ECRCL 37.95 ml/min Low 50-250 [facility] Comment on above: Performed By: #### L 500.2500, L100.0100 ####[facility] [address] [place], [address] GAP 16 High 5-15 [facility] Comment on above: Performed By: #### L 500.2500, L100.0100 ####[facility] [address] [place], [address] GFR/1.73 sq M.predicted among non-blacks MDRD (S/P/Bld) [Vol rate/Area] 48 mL/min/{1.73_m2} Low >60 [facility] Comment on above: Result Comment: mL/m in/1.73m2 CKD-EPI Creatinine Equation (2020) Performed By: #### L 500.2500, L100.0100 ####[facility] [address] [place], [address] Glucose [Mass/Vol] 132 mg/dL High 70-99 [facility] Comment on above: Performed By: #### L 500.2500, L100.0100 ####[facility] [address] [place], [address] Potassium [Moles/Vol] 3.9 mmol/L Normal 3.3-5.1 [facility] Comment on above: Result Comment: Hemo lysis present, Results??could be affected.?? Performed By: #### L 500.2500, L100.0100 ####[facility] [address] [place], [address] Sodium [Moles/Vol] 137 mmol/L Normal 133-145 [facility] Comment on above: Performed By: #### L 500.2500, L100.0100 ####[facility] [address] [place], [address] Urea nitrogen [Mass/Vol] 15 mg/dL Normal 4-19 [facility] Comment on above: Performed By: #### L 500.2500, L100.0100 ####[facility] [address] [place], [address] Basophil percentageOrdered B y: Aj Holley on 02-04-2025 Basophils/100 WBC (Bld) 0.2 % 0-1 [facility] Bedside Glucoseon 02-04-2025 FINGERSTICK GLU 179 mg/dL High 74-106 [facility] Comment on above: Result Comment: KATARINA GEMENT OF PATIENT CARE PER NURSING PROTOCOL Performed By: #### L 501.080 ####[facility] [address] [place], [address] FINGERSTICK GLU 240 mg/dL High 74-106 [facility] Comment on above: Result Comment: KATARINA GEMENT OF PATIENT CARE PER NURSING PROTOCOL Performed By: #### L 501.080 ####[facility] [address] [place], [address] CBC W/Diff, Automatedon 06-0 Absolute Lymph 1.75 X10 3/uL Normal 0.83-4.51 [facility] Comment on above: Performed By: #### L 500.2500, L100.0100 ####[facility] [address] [place], [address] Absolute Neut 8.4 X10 3/uL High 2.0-7.7 [facility] Comment on above: Performed By: #### L 500.2500, L100.0100 ####[facility] [address] [place], [address] Basophils/100 WBC (Bld) 0.2 % Normal 0-1 [facility] Comment on above: Performed By: #### L 500.2500, L100.0100 ####[facility] [address] [place], [address] Eosinophils/100 WBC (Bld) 1.7 % Normal 0-5 [facility] Comment on above: Performed By: #### L 500.2500, L100.0100 ####[facility] [address] [place], [address] Erythrocyte distribution width (RBC) [Ratio] 15.9 % High 11.6-14.6 [facility] Comment on above: Performed By: #### L 500.2500, L100.0100 ####[facility] [address] [place], [address] Hematocrit (Bld) [Volume fraction] 34.1 % Low 37-47 [facility] Comment on above: Performed By: #### L 500.2500, L100.0100 ####[facility] [address] [place], [address] Hemoglobin (Bld) [Mass/Vol] 10.7 g/dL Low 12.0-15.0 [facility] Comment on above: Performed By: #### L 500.2500, L100.0100 ####[facility] [address] [place], [address] IG% 0.400 Normal 0.0-0.9 [facility] Comment on above: Result Comment: IG% - Immature Granulocytes (promyelocytes, myelocytes andmetamyelocytes) > 1% indicates that a LEFT SHIFT is Present. Performed By: #### L 500.2500, L100.0100 ####[facility] [address] [place], [address] Lymphocytes/100 WBC (Bld) 15.7 % Low 19-41 [facility] Comment on above: Performed By: #### L 500.2500, L100.0100 ####[facility] [address] [place], [address] MCH (RBC) [Entitic mass] 27.9 pg Normal 27.0-32.0 [facility] Comment on above: Performed By: #### L 500.2500, L100.0100 ####[facility] [address] [place], [address] MCHC (RBC) [Mass/Vol] 31.4 g/dL Low 32-36 [facility] Comment on above: Performed By: #### L 500.2500, L100.0100 ####[facility] [address] [place], [address] MCV (RBC) [Entitic vol] 88.8 fL Normal 81-99 [facility] Comment on above: Performed By: #### L 500.2500, L100.0100 ####[facility] [address] [place], [address] Monocytes/100 WBC (Bld) 6.6 % Normal 0-10 [facility] Comment on above: Performed By: #### L 500.2500, L100.0100 ####[facility] [address] [place], [address] Neutrophils/100 WBC (Bld) 75.4 % High 47-70 [facility] Comment on above: Performed By: #### L 500.2500, L100.0100 ####[facility] [address] [place], [address] Nucleated RBC (Bld) [#/Vol] 0 10*3/uL Normal 0-5 [facility] Comment on above: Performed By: #### L 500.2500, L100.0100 ####[facility] [address] [place], [address] Platelet mean volume (Bld) [Entitic vol] 11.3 fL Normal 6.2-12.0 [facility] Comment on above: Performed By: #### L 500.2500, L100.0100 ####[facility] [address] [place], [address] Platelets (Bld) [#/Vol] 185 10*3/uL Normal 150-450 [facility] Comment on above: Performed By: #### L 500.2500, L100.0100 ####[facility] [address] [place], [address] RBC (Bld) [#/Vol] 3.84 10*6/uL Low 4.2-5.4 [facility] Comment on above: Performed By: #### L 500.2500, L100.0100 ####[facility] [address] [place], [address] RDW SD 51.4 fl High 35.1-43.9 [facility] Comment on above: Performed By: #### L 500.2500, L100.0100 ####[facility] [address] [place], [address] WBC (Bld) [#/Vol] 11.2 10*3/uL High 4.4-11.0 [facility] Comment on above: Performed By: #### L 500.2500, L100.0100 ####[facility] [address] [place], [address] CTA Chest W/WO Contraston CTA Chest W/WO Contrast Normal [facility] Carbon dioxide, total [Moles /volume] in Central venous bloodOrdered By: Aj Holley on 02-04-2025 CO2 [Moles/Vol] 25.9 mmol/L 21.0-32.0 [facility] Chest PA and Lateralon 02-04 Chest PA and Lateral Normal [facility] Chloride assayOrdered By: Dahlia Holley on 02-04-2025 Chloride [Moles/Vol] 95 mmol/L Low 98-108 [facility] Emergency Department Summary on 02-04-2025 Emergency Department Summary Normal [facility] Eosinophil percentageOrdered By: Aj Holley on 02-04-2025 Eosinophils/100 WBC (Bld) 1.7 % 0-5 [facility] Erythrocyte distribution wid th ratioOrdered By: Aj Holley on 02-04-2025 Erythrocyte distribution width (RBC) [Ratio] 15.9 % High 11.6-14.6 [facility] Erythrocyte distribution wid th standard deviationOrdered By: Aj Holley on 02-04-2025 Erythrocyte distribution width (RBC) [Ratio] 51.4 fl High 35.1-43.9 [facility] Glomerular filtration rate ( GFR) estimation/1.73 sq m using serum, plasma, or whole bOrdered By: Aj Holley on 02-04-2025 GFR/1.73 sq M.predicted among non-blacks MDRD (S/P/Bld) [Vol rate/Area] 48 mL/min/{1.73_m2} Low >60 [facility] H AND P Exam - Hospitaliston 02-04-2025 H&P Exam - Hospitalist Normal [facility] Hematocrit Auto (Bld) [Volum e fraction]Ordered By: Aj Holley on 02-04-2025 Hematocrit (Bld) [Volume fraction] 34.1 % Low 37-47 [facility] Hemoglobin measurementOrdere d By: Aj Holley on 02-04-2025 Hemoglobin (Bld) [Mass/Vol] 10.7 g/dL Low 12.0-15.0 [facility] Immature granulocytes/100 WB C Auto (Bld)Ordered By: Aj Holley on 02-04-2025 Immature granulocytes/100 WBC (Bld) 0.400 % 0.0-0.9 [facility] L499.0042on 02-04-2025 Trop T High Sen 133 ng/L Invalid Interpretation Code <=14 [facility] Comment on above: Result Comment: Crit ical Result(s) Called at 0915: by: SHARONA EASLEY. ??Results read back by same. Performed By: #### L 499.0042 ####[facility] [address] [place], [place], [address] L499.0043on 02-04-2025 Trop T High Sen 139 ng/L Invalid Interpretation Code <=14 [facility] Comment on above: Result Comment: Crit ical Result(s) Called at 1125: by: Michael SEGAL to YolyKiranGraves.??Results read back by same. Performed By: #### L 499.0043 ####[facility] [address] [facility] [place], [address] L501.4021on 02-04-2025 Trop T High Sen 139 ng/L Invalid Interpretation Code <=14 [facility] Comment on above: Result Comment: Crit ical Result(s) Called at 0809: by: SHARONA GO.??Results read back by same. Performed By: #### L 503.7505, L501.4021 ####[facility] [address] [place], [address] L503.7505on 02-04-2025 Natriuretic peptide B (Bld) [Mass/Vol] 6247 pg/mL High <=1800 [facility] Comment on above: Result Comment: Hear t Failure Unlikely: < 300 pg/mLHeart Failure Likely< 50 Years: > 450 pg/mL50-75 Years: > 900 pg/mL>75 Years: > 1800 pg/mL Performed By: #### L 503.7505, L501.4021 ####[facility] [address] [place], [address] MCV (mean corpuscular volume ) determinationOrdered By: Aj Holley on 02-04-2025 MCV (RBC) [Entitic vol] 88.8 fL 81-99 [facility] Mean corpuscular hemoglobin (MCH) determinationOrdered By: Aj Holley on 02-04-2025 MCH (RBC) [Entitic mass] 27.9 pg 27.0-32.0 [facility] Monocyte percentageOrdered B y: Aj Holley on 02-04-2025 Monocytes/100 WBC (Bld) 6.6 % 0-10 [facility] Natriuretic peptide.B prohor hayley N-Terminal [Mass/volume] in Serum or PlasmaOrdered By: Aj Holley on 02-04-2025 Natriuretic peptide.B prohormone N-Terminal [Mass/Vol] 6247 pg/mL High <1800 [facility] Neutrophil percentageOrdered By: Aj Holley on 02-04-2025 Neutrophils/100 WBC (Bld) 75.4 % High 47-70 [facility] Platelet countOrdered By: Dahlia Holley on 02-04-2025 Platelets (Bld) [#/Vol] 185 10*3/uL 150-450 [facility] Potassium measurement (mass/ volume)Ordered By: Aj Holley on 02-04-2025 Potassium (Unsp spec) [Mass/Vol] 3.9 mmol/L 3.3-5.1 [facility] RBC Auto (Bld) [#/Vol]Ordere d By: Aj Holley on 02-04-2025 RBC (Bld) [#/Vol] 3.84 10*6/uL Low 4.2-5.4 [facility] Serum creatinine measurement (mass/volume)Ordered By: Aj Holley on 02-04-2025 Creatinine [Mass/Vol] 1.14 mg/dL 0.70-1.20 [facility] Serum glucose measurement (m ass/volume)Ordered By: Aj Holley on 02-04-2025 Glucose [Mass/Vol] 132 mg/dL High 70-99 [facility] Serum or plasma calcium melanie urement (mass/volume)Ordered By: Aj Holley on 02-04-2025 Calcium [Mass/Vol] 8.9 mg/dL 7.6-11.0 [facility] Serum or plasma urea nitroge n measurement (mass/volume)Ordered By: Aj Holley on 02-04-2025 Urea nitrogen [Mass/Vol] 15 mg/dL 4-19 [facility] Sodium levelOrdered By: Reynaldo Holley on 02-04-2025 Sodium [Moles/Vol] 137 mmol/L 133-145 [facility] Troponin T.cardiac [Mass/vol ume] in Serum or Plasma by High sensitivity methodOrdered By: Aj Holley on 02-04-2025 Troponin T.cardiac High sensitivity method [Mass/Vol] 139 ng/L High <14 [facility] Troponin T.cardiac High sensitivity method [Mass/Vol] 133 ng/L High <14 [facility] Troponin T.cardiac High sensitivity method [Mass/Vol] 139 ng/L High <14 [facility] White blood cell (WBC) count Ordered By: Aj Holley on 02-04-2025 WBC (Bld) [#/Vol] 11.2 10*3/uL High 4.4-11.0 [facility] Cardiology Visit Reporton Cardiology Visit Report Normal [facility] Basic Metabolic Profile (BMP )on 01-30-2025 BUN Normal 4-19 [facility] Comment on above: Result Comment: Canc elled via OM: Order cancelled - Patient discharged Performed By: #### L 100.0100, L500.2500 ####[facility] [address] [facility] [address] BUN/CRE Normal 10-20 [facility] Comment on above: Result Comment: Canc elled via OM: Order cancelled - Patient discharged Performed By: #### L 100.0100, L500.2500 ####[facility] [address] [place], [address] Calcium Normal 7.6-11.0 [facility] Comment on above: Result Comment: Canc elled via OM: Order cancelled - Patient discharged Performed By: #### L 100.0100, L500.2500 ####[facility] [address] [place], [address] CL Normal 98-108 [facility] Comment on above: Result Comment: Canc elled via OM: Order cancelled - Patient discharged Performed By: #### L 100.0100, L500.2500 ####[facility] [address] [place], [address] CO2 Normal 21.0-32.0 [facility] Comment on above: Result Comment: Canc elled via OM: Order cancelled - Patient discharged Performed By: #### L 100.0100, L500.2500 ####[facility] [address] [place], [address] CREAT,SERUM Normal 0.70-1.20 [facility] Comment on above: Result Comment: Canc elled via OM: Order cancelled - Patient discharged Performed By: #### L 100.0100, L500.2500 ####[facility] [address] [place], [address] eGFR Normal >60 [facility] Comment on above: Result Comment: Canc elled via OM: Order cancelled - Patient discharged Performed By: #### L 100.0100, L500.2500 ####[facility] [address] [place], [address] GAP Normal 5-15 [facility] Comment on above: Result Comment: Canc elled via OM: Order cancelled - Patient discharged Performed By: #### L 100.0100, L500.2500 ####[facility] [address] [place], [address] GLU Normal 70-99 [facility] Comment on above: Result Comment: Canc elled via OM: Order cancelled - Patient discharged Performed By: #### L 100.0100, L500.2500 ####[facility] [address] [place], [address] Potassium Normal 3.3-5.1 [facility] Comment on above: Result Comment: Canc elled via OM: Order cancelled - Patient discharged Performed By: #### L 100.0100, L500.2500 ####[facility] [address] [place], [address] Basic Metabolic Profile (BMP) Normal 133-145 [facility] Comment on above: Result Comment: Canc elled via OM: Order cancelled - Patient discharged Performed By: #### L 100.0100, L500.2500 ####[facility] [address] [place], [address] CBC W/Diff, Automatedon 06-0 -2024 Absolute Neut Normal 2.0-7.7 [facility] Comment on above: Result Comment: Canc elled via OM: Order cancelled - Patient discharged Performed By: #### L 100.0100, L500.2500 ####[facility] [address] [place], [address] HCT Normal 37-47 [facility] Comment on above: Result Comment: Canc elled via OM: Order cancelled - Patient discharged Performed By: #### L 100.0100, L500.2500 ####[facility] [address] [place], [address] HGB Normal 12.0-15.0 [facility] Comment on above: Result Comment: Canc elled via OM: Order cancelled - Patient discharged Performed By: #### L 100.0100, L500.2500 ####[facility] [address] [place], [address] MCH Normal 27.0-32.0 [facility] Comment on above: Result Comment: Canc elled via OM: Order cancelled - Patient discharged Performed By: #### L 100.0100, L500.2500 ####[facility] [address] [place], [address] MCHC Normal 32-36 [facility] Comment on above: Result Comment: Canc elled via OM: Order cancelled - Patient discharged Performed By: #### L 100.0100, L500.2500 ####[facility] [address] [place], [address] MCV Normal 81-99 [facility] Comment on above: Result Comment: Canc elled via OM: Order cancelled - Patient discharged Performed By: #### L 100.0100, L500.2500 ####[facility] [address] [place], [address] NEUT% Normal 47-70 [facility] Comment on above: Result Comment: Canc elled via OM: Order cancelled - Patient discharged Performed By: #### L 100.0100, L500.2500 ####[facility] [address] [place], [address] PLT Normal 150-450 [facility] Comment on above: Result Comment: Canc elled via OM: Order cancelled - Patient discharged Performed By: #### L 100.0100, L500.2500 ####[facility] [address] [place], [address] RBC Normal 4.2-5.4 [facility] Comment on above: Result Comment: Canc elled via OM: Order cancelled - Patient discharged Performed By: #### L 100.0100, L500.2500 ####[facility] [address] [place], [address] RDW CV Normal 11.6-14.6 [facility] Comment on above: Result Comment: Canc elled via OM: Order cancelled - Patient discharged Performed By: #### L 100.0100, L500.2500 ####[facility] [address] [place], [address] RDW SD Normal 35.1-43.9 [facility] Comment on above: Result Comment: Canc elled via OM: Order cancelled - Patient discharged Performed By: #### L 100.0100, L500.2500 ####[facility] [address] [place], [address] WBC Normal 4.4-11.0 [facility] Comment on above: Result Comment: Canc elled via OM: Order cancelled - Patient discharged Performed By: #### L 100.0100, L500.2500 ####[facility] [address] [place], [address] Basic Metabolic Profile (BMP )on 01-29-2025 BUN Normal 4-19 [facility] Comment on above: Result Comment: Canc elled via OM: Order cancelled - Patient discharged Performed By: #### L 100.0100, L500.2500 ####[facility] [address] [place], [address] BUN/CRE Normal 10-20 [facility] Comment on above: Result Comment: Canc elled via OM: Order cancelled - Patient discharged Performed By: #### L 100.0100, L500.2500 ####[facility] [address] [place], [address] Calcium Normal 7.6-11.0 [facility] Comment on above: Result Comment: Canc elled via OM: Order cancelled - Patient discharged Performed By: #### L 100.0100, L500.2500 ####[facility] [address] [place], [address] CL Normal 98-108 [facility] Comment on above: Result Comment: Canc elled via OM: Order cancelled - Patient discharged Performed By: #### L 100.0100, L500.2500 ####[facility] [address] [place], [address] CO2 Normal 21.0-32.0 [facility] Comment on above: Result Comment: Canc elled via OM: Order cancelled - Patient discharged Performed By: #### L 100.0100, L500.2500 ####[facility] [address] [place], [address] CREAT,SERUM Normal 0.70-1.20 [facility] Comment on above: Result Comment: Canc elled via OM: Order cancelled - Patient discharged Performed By: #### L 100.0100, L500.2500 ####[facility] [address] [place], [address] eGFR Normal >60 [facility] Comment on above: Result Comment: Canc elled via OM: Order cancelled - Patient discharged Performed By: #### L 100.0100, L500.2500 ####[facility] [address] [place], [address] GAP Normal 5-15 [facility] Comment on above: Result Comment: Canc elled via OM: Order cancelled - Patient discharged Performed By: #### L 100.0100, L500.2500 ####[facility] [address] [place], [address] GLU Normal 70-99 [facility] Comment on above: Result Comment: Canc elled via OM: Order cancelled - Patient discharged Performed By: #### L 100.0100, L500.2500 ####[facility] [address] [place], [address] Potassium Normal 3.3-5.1 [facility] Comment on above: Result Comment: Canc elled via OM: Order cancelled - Patient discharged Performed By: #### L 100.0100, L500.2500 ####[facility] [address] [place], [address] Basic Metabolic Profile (BMP) Normal 133-145 [facility] Comment on above: Result Comment: Canc elled via OM: Order cancelled - Patient discharged Performed By: #### L 100.0100, L500.2500 ####[facility] [address] [place], [address] CBC W/Diff, Automatedon 06-0 -2024 Absolute Neut Normal 2.0-7.7 [facility] Comment on above: Result Comment: Canc elled via OM: Order cancelled - Patient discharged Performed By: #### L 100.0100, L500.2500 ####[facility] [address] [place], [address] HCT Normal 37-47 [facility] Comment on above: Result Comment: Canc elled via OM: Order cancelled - Patient discharged Performed By: #### L 100.0100, L500.2500 ####[facility] [address] [place], [address] HGB Normal 12.0-15.0 [facility] Comment on above: Result Comment: Canc elled via OM: Order cancelled - Patient discharged Performed By: #### L 100.0100, L500.2500 ####[facility] [address] [place], [address] MCH Normal 27.0-32.0 [facility] Comment on above: Result Comment: Canc elled via OM: Order cancelled - Patient discharged Performed By: #### L 100.0100, L500.2500 ####[facility] [address] [place], [address] MCHC Normal 32-36 [facility] Comment on above: Result Comment: Canc elled via OM: Order cancelled - Patient discharged Performed By: #### L 100.0100, L500.2500 ####[facility] [address] [place], [address] MCV Normal 81-99 [facility] Comment on above: Result Comment: Canc elled via OM: Order cancelled - Patient discharged Performed By: #### L 100.0100, L500.2500 ####[facility] [address] [place], [address] NEUT% Normal 47-70 [facility] Comment on above: Result Comment: Canc elled via OM: Order cancelled - Patient discharged Performed By: #### L 100.0100, L500.2500 ####[facility] [address] [place], [address] PLT Normal 150-450 [facility] Comment on above: Result Comment: Canc elled via OM: Order cancelled - Patient discharged Performed By: #### L 100.0100, L500.2500 ####[facility] [address] [place], [address] RBC Normal 4.2-5.4 [facility] Comment on above: Result Comment: Canc elled via OM: Order cancelled - Patient discharged Performed By: #### L 100.0100, L500.2500 ####[facility] [address] [place], [address] RDW CV Normal 11.6-14.6 [facility] Comment on above: Result Comment: Canc elled via OM: Order cancelled - Patient discharged Performed By: #### L 100.0100, L500.2500 ####[facility] [address] [place], [address] RDW SD Normal 35.1-43.9 [facility] Comment on above: Result Comment: Canc elled via OM: Order cancelled - Patient discharged Performed By: #### L 100.0100, L500.2500 ####[facility] [address] [place], [address] WBC Normal 4.4-11.0 [facility] Comment on above: Result Comment: Canc elled via OM: Order cancelled - Patient discharged Performed By: #### L 100.0100, L500.2500 ####[facility] [address] [place], [address] Basic Metabolic Profile (BMP )on 01-28-2025 BUN Normal 4-19 [facility] Comment on above: Result Comment: Canc elled via OM: Order cancelled - Patient discharged Performed By: #### L 500.2500, L100.0100 ####[facility] [address] [place], [address] BUN/CRE Normal 10-20 [facility] Comment on above: Result Comment: Canc elled via OM: Order cancelled - Patient discharged Performed By: #### L 500.2500, L100.0100 ####[facility] [address] [place], [address] Calcium Normal 7.6-11.0 [facility] Comment on above: Result Comment: Canc elled via OM: Order cancelled - Patient discharged Performed By: #### L 500.2500, L100.0100 ####[facility] [address] [place], [address] CL Normal 98-108 [facility] Comment on above: Result Comment: Canc elled via OM: Order cancelled - Patient discharged Performed By: #### L 500.2500, L100.0100 ####[facility] [address] [place], [address] CO2 Normal 21.0-32.0 [facility] Comment on above: Result Comment: Canc elled via OM: Order cancelled - Patient discharged Performed By: #### L 500.2500, L100.0100 ####[facility] [address] [place], [address] CREAT,SERUM Normal 0.70-1.20 [facility] Comment on above: Result Comment: Canc elled via OM: Order cancelled - Patient discharged Performed By: #### L 500.2500, L100.0100 ####[facility] [address] [place], [address] eGFR Normal >60 [facility] Comment on above: Result Comment: Canc elled via OM: Order cancelled - Patient discharged Performed By: #### L 500.2500, L100.0100 ####[facility] [address] [place], [address] GAP Normal 5-15 [facility] Comment on above: Result Comment: Canc elled via OM: Order cancelled - Patient discharged Performed By: #### L 500.2500, L100.0100 ####[facility] [address] [place], [address] GLU Normal 70-99 [facility] Comment on above: Result Comment: Canc elled via OM: Order cancelled - Patient discharged Performed By: #### L 500.2500, L100.0100 ####[facility] [address] [place], [address] Potassium Normal 3.3-5.1 [facility] Comment on above: Result Comment: Canc elled via OM: Order cancelled - Patient discharged Performed By: #### L 500.2500, L100.0100 ####[facility] [address] [place], [address] Basic Metabolic Profile (BMP) Normal 133-145 [facility] Comment on above: Result Comment: Canc elled via OM: Order cancelled - Patient discharged Performed By: #### L 500.2500, L100.0100 ####[facility] [address] [place], [address] CBC W/Diff, Automatedon 05-3 Absolute Neut Normal 2.0-7.7 [facility] Comment on above: Result Comment: Canc elled via OM: Order cancelled - Patient discharged Performed By: #### L 500.2500, L100.0100 ####[facility] [address] [place], [address] HCT Normal 37-47 [facility] Comment on above: Result Comment: Canc elled via OM: Order cancelled - Patient discharged Performed By: #### L 500.2500, L100.0100 ####[facility] [address] [place], [address] HGB Normal 12.0-15.0 [facility] Comment on above: Result Comment: Canc elled via OM: Order cancelled - Patient discharged Performed By: #### L 500.2500, L100.0100 ####[facility] [address] [place], [address] MCH Normal 27.0-32.0 [facility] Comment on above: Result Comment: Canc elled via OM: Order cancelled - Patient discharged Performed By: #### L 500.2500, L100.0100 ####[facility] [address] [place], [address] MCHC Normal 32-36 [facility] Comment on above: Result Comment: Canc elled via OM: Order cancelled - Patient discharged Performed By: #### L 500.2500, L100.0100 ####[facility] [address] [place], [address] MCV Normal 81-99 [facility] Comment on above: Result Comment: Canc elled via OM: Order cancelled - Patient discharged Performed By: #### L 500.2500, L100.0100 ####[facility] [address] [place], [address] NEUT% Normal 47-70 [facility] Comment on above: Result Comment: Canc elled via OM: Order cancelled - Patient discharged Performed By: #### L 500.2500, L100.0100 ####[facility] [address] [place], [address] PLT Normal 150-450 [facility] Comment on above: Result Comment: Canc elled via OM: Order cancelled - Patient discharged Performed By: #### L 500.2500, L100.0100 ####[facility] [address] [place], [address] RBC Normal 4.2-5.4 [facility] Comment on above: Result Comment: Canc elled via OM: Order cancelled - Patient discharged Performed By: #### L 500.2500, L100.0100 ####[facility] [address] [place], [address] RDW CV Normal 11.6-14.6 [facility] Comment on above: Result Comment: Canc elled via OM: Order cancelled - Patient discharged Performed By: #### L 500.2500, L100.0100 ####[facility] [address] [place], [address] RDW SD Normal 35.1-43.9 [facility] Comment on above: Result Comment: Canc elled via OM: Order cancelled - Patient discharged Performed By: #### L 500.2500, L100.0100 ####[facility] [address] [place], [address] WBC Normal 4.4-11.0 [facility] Comment on above: Result Comment: Canc elled via OM: Order cancelled - Patient discharged Performed By: #### L 500.2500, L100.0100 ####[facility] [address] [place], [address] Basic Metabolic Profile (BMP )on 01-27-2025 BUN Normal 4-19 [facility] Comment on above: Result Comment: Canc elled via OM: Order cancelled - Patient discharged Performed By: #### L 500.2500, L100.0100 ####[facility] [address] [place], [address] BUN/CRE Normal 10-20 [facility] Comment on above: Result Comment: Canc elled via OM: Order cancelled - Patient discharged Performed By: #### L 500.2500, L100.0100 ####[facility] [address] [place], [address] Calcium Normal 7.6-11.0 [facility] Comment on above: Result Comment: Canc elled via OM: Order cancelled - Patient discharged Performed By: #### L 500.2500, L100.0100 ####[facility] [address] [place], [address] CL Normal 98-108 [facility] Comment on above: Result Comment: Canc elled via OM: Order cancelled - Patient discharged Performed By: #### L 500.2500, L100.0100 ####[facility] [address] [place], [address] CO2 Normal 21.0-32.0 [facility] Comment on above: Result Comment: Canc elled via OM: Order cancelled - Patient discharged Performed By: #### L 500.2500, L100.0100 ####[facility] [address] [place], [address] CREAT,SERUM Normal 0.70-1.20 [facility] Comment on above: Result Comment: Canc elled via OM: Order cancelled - Patient discharged Performed By: #### L 500.2500, L100.0100 ####[facility] [address] [place], [address] eGFR Normal >60 [facility] Comment on above: Result Comment: Canc elled via OM: Order cancelled - Patient discharged Performed By: #### L 500.2500, L100.0100 ####[facility] [address] [place], [address] GAP Normal 5-15 [facility] Comment on above: Result Comment: Canc elled via OM: Order cancelled - Patient discharged Performed By: #### L 500.2500, L100.0100 ####[facility] [address] [place], [address] GLU Normal 70-99 [facility] Comment on above: Result Comment: Canc elled via OM: Order cancelled - Patient discharged Performed By: #### L 500.2500, L100.0100 ####[facility] [address] [place], [address] Potassium Normal 3.3-5.1 [facility] Comment on above: Result Comment: Canc elled via OM: Order cancelled - Patient discharged Performed By: #### L 500.2500, L100.0100 ####[facility] [address] [place], [address] Basic Metabolic Profile (BMP) Normal 133-145 [facility] Comment on above: Result Comment: Canc elled via OM: Order cancelled - Patient discharged Performed By: #### L 500.2500, L100.0100 ####[facility] [address] [place], [address] CBC W/Diff, Automatedon 05-3 0-2024 Absolute Neut Normal 2.0-7.7 [facility] Comment on above: Result Comment: Canc elled via OM: Order cancelled - Patient discharged Performed By: #### L 500.2500, L100.0100 ####[facility] [address] [place], [address] HCT Normal 37-47 [facility] Comment on above: Result Comment: Canc elled via OM: Order cancelled - Patient discharged Performed By: #### L 500.2500, L100.0100 ####[facility] [address] [place], [address] HGB Normal 12.0-15.0 [facility] Comment on above: Result Comment: Canc elled via OM: Order cancelled - Patient discharged Performed By: #### L 500.2500, L100.0100 ####[facility] [address] [place], [address] MCH Normal 27.0-32.0 [facility] Comment on above: Result Comment: Canc elled via OM: Order cancelled - Patient discharged Performed By: #### L 500.2500, L100.0100 ####[facility] [address] [place], [address] MCHC Normal 32-36 [facility] Comment on above: Result Comment: Canc elled via OM: Order cancelled - Patient discharged Performed By: #### L 500.2500, L100.0100 ####[facility] [address] [place], [address] MCV Normal 81-99 [facility] Comment on above: Result Comment: Canc elled via OM: Order cancelled - Patient discharged Performed By: #### L 500.2500, L100.0100 ####[facility] [address] [place], [address] NEUT% Normal 47-70 [facility] Comment on above: Result Comment: Canc elled via OM: Order cancelled - Patient discharged Performed By: #### L 500.2500, L100.0100 ####[facility] [address] [place], [address] PLT Normal 150-450 [facility] Comment on above: Result Comment: Canc elled via OM: Order cancelled - Patient discharged Performed By: #### L 500.2500, L100.0100 ####[facility] [address] [place], [address] RBC Normal 4.2-5.4 [facility] Comment on above: Result Comment: Canc elled via OM: Order cancelled - Patient discharged Performed By: #### L 500.2500, L100.0100 ####[facility] [address] [place], [address] RDW CV Normal 11.6-14.6 [facility] Comment on above: Result Comment: Canc elled via OM: Order cancelled - Patient discharged Performed By: #### L 500.2500, L100.0100 ####[facility] [address] [place], [address] RDW SD Normal 35.1-43.9 [facility] Comment on above: Result Comment: Canc elled via OM: Order cancelled - Patient discharged Performed By: #### L 500.2500, L100.0100 ####[facility] [address] [place], [address] WBC Normal 4.4-11.0 [facility] Comment on above: Result Comment: Canc elled via OM: Order cancelled - Patient discharged Performed By: #### L 500.2500, L100.0100 ####[facility] [address] [place], [address] Absolute lymphocyte countOrd ered By: Jg Bryan on 01-26-2025 Lymphocytes Auto (Unsp spec) [#/Vol] 2.24 10*3/uL 0.83-4.51 [facility] Anion gap in Serum or Plasma Ordered By: Jg Bryan on 01-26-2025 Anion gap [Moles/Vol] 10 mmol/L 5- [facility] Automated lymphocyte count a s percentage of total leukocytesOrdered By: Jg Bryan on 01-26-2025 Lymphocytes/100 WBC Auto (Unsp spec) 25.1 % - [facility] BUN/creatinine ratioOrdered By: Jg Bryan on 01-26-2025 Urea nitrogen/Creatinine [Mass ratio] 30.2 mg/mg High 10- [facility] Basic Metabolic Profile (BMP )on 01-26-2025 BUN Normal - [facility] Comment on above: Result Comment: Canc elled via OM: Order cancelled - Patient discharged Performed By: #### L 500.2500, L100.0100 ####[facility] [address] [place], [address] BUN/CRE Normal 10-20 [facility] Comment on above: Result Comment: Canc elled via OM: Order cancelled - Patient discharged Performed By: #### L 500.2500, L100.0100 ####[facility] [address] [place], [address] Calcium Normal 7.6-11.0 [facility] Comment on above: Result Comment: Canc elled via OM: Order cancelled - Patient discharged Performed By: #### L 500.2500, L100.0100 ####[facility] [address] [place], [address] CL Normal 98-108 [facility] Comment on above: Result Comment: Canc elled via OM: Order cancelled - Patient discharged Performed By: #### L 500.2500, L100.0100 ####[facility] [address] [place], [address] CO2 Normal 21.0-32.0 [facility] Comment on above: Result Comment: Canc elled via OM: Order cancelled - Patient discharged Performed By: #### L 500.2500, L100.0100 ####[facility] [address] [place], [address] CREAT,SERUM Normal 0.70-1.20 [facility] Comment on above: Result Comment: Canc elled via OM: Order cancelled - Patient discharged Performed By: #### L 500.2500, L100.0100 ####[facility] [address] [place], [address] eGFR Normal >60 [facility] Comment on above: Result Comment: Canc elled via OM: Order cancelled - Patient discharged Performed By: #### L 500.2500, L100.0100 ####[facility] [address] [place], [address] GAP Normal 5-15 [facility] Comment on above: Result Comment: Canc elled via OM: Order cancelled - Patient discharged Performed By: #### L 500.2500, L100.0100 ####[facility] [address] [place], [address] GLU Normal 70-99 [facility] Comment on above: Result Comment: Canc elled via OM: Order cancelled - Patient discharged Performed By: #### L 500.2500, L100.0100 ####[facility] [address] [place], [address] Potassium Normal 3.3-5.1 [facility] Comment on above: Result Comment: Canc elled via OM: Order cancelled - Patient discharged Performed By: #### L 500.2500, L100.0100 ####[facility] [address] [place], [address] Basic Metabolic Profile (BMP) Normal 133-145 [facility] Comment on above: Result Comment: Canc elled via OM: Order cancelled - Patient discharged Performed By: #### L 500.2500, L100.0100 ####[facility] [address] [place], [address] BUN/CRE 30.2 RATIO High 10-20 [facility] Comment on above: Performed By: #### L 503.7505, L500.2500, L100.0100, L501.5200 ####[facility] [address] [place], [address] Calcium [Mass/Vol] 10.2 mg/dL Normal 7.6-11.0 [facility] Comment on above: Performed By: #### L 503.7505, L500.2500, L100.0100, L501.5200 ####[facility] [address] [place], [address] Chloride [Moles/Vol] 104 mmol/L Normal 98-108 [facility] Comment on above: Performed By: #### L 503.7505, L500.2500, L100.0100, L501.5200 ####[facility] [address] [place], [address] CO2 [Moles/Vol] 27.1 mmol/L Normal 21.0-32.0 [facility] Comment on above: Performed By: #### L 503.7505, L500.2500, L100.0100, L501.5200 ####[facility] [address] [place], [address] Creatinine [Mass/Vol] 1.16 mg/dL Normal 0.70-1.20 [facility] Comment on above: Performed By: #### L 503.7505, L500.2500, L100.0100, L501.5200 ####[facility] [address] [place], [address] ECRCL 38.24 ml/min Low 50-250 [facility] Comment on above: Performed By: #### L 503.7505, L500.2500, L100.0100, L501.5200 ####[facility] [address] [place], [address] GAP 10 Normal 5-15 [facility] Comment on above: Performed By: #### L 503.7505, L500.2500, L100.0100, L501.5200 ####[facility] [address] [place], [address] GFR/1.73 sq M.predicted among non-blacks MDRD (S/P/Bld) [Vol rate/Area] 47 mL/min/{1.73_m2} Low >60 [facility] Comment on above: Result Comment: mL/m in/1.73m2 CKD-EPI Creatinine Equation (2020) Performed By: #### L 503.7505, L500.2500, L100.0100, L501.5200 ####[facility] [address] [place], [address] Glucose [Mass/Vol] 211 mg/dL High 70-99 [facility] Comment on above: Performed By: #### L 503.7505, L500.2500, L100.0100, L501.5200 ####[facility] [address] [place], [address] Potassium [Moles/Vol] 4.1 mmol/L Normal 3.3-5.1 [facility] Comment on above: Performed By: #### L 503.7505, L500.2500, L100.0100, L501.5200 ####[facility] [address] [place], [address] Sodium [Moles/Vol] 141 mmol/L Normal 133-145 [facility] Comment on above: Performed By: #### L 503.7505, L500.2500, L100.0100, L501.5200 ####[facility] [address] [place], [address] Urea nitrogen [Mass/Vol] 35 mg/dL High 4-19 [facility] Comment on above: Performed By: #### L 503.7505, L500.2500, L100.0100, L501.5200 ####[facility] [address] [place], [address] Basophil percentageOrdered B y: Jg Bryan on 01-26-2025 Basophils/100 WBC (Bld) 0.1 % 0-1 [facility] CBC W/Diff, Automatedon 12-30 Absolute Neut Normal 2.0-7.7 [facility] Comment on above: Result Comment: Canc elled via OM: Order cancelled - Patient discharged Performed By: #### L 500.2500, L100.0100 ####[facility] [address] [place], [address] HCT Normal 37-47 [facility] Comment on above: Result Comment: Canc elled via OM: Order cancelled - Patient discharged Performed By: #### L 500.2500, L100.0100 ####[facility] [address] [place], [address] HGB Normal 12.0-15.0 [facility] Comment on above: Result Comment: Canc elled via OM: Order cancelled - Patient discharged Performed By: #### L 500.2500, L100.0100 ####[facility] [address] [place], [address] MCH Normal 27.0-32.0 [facility] Comment on above: Result Comment: Canc elled via OM: Order cancelled - Patient discharged Performed By: #### L 500.2500, L100.0100 ####[facility] [address] [place], [address] MCHC Normal 32-36 [facility] Comment on above: Result Comment: Canc elled via OM: Order cancelled - Patient discharged Performed By: #### L 500.2500, L100.0100 ####[facility] [address] [place], [address] MCV Normal 81-99 [facility] Comment on above: Result Comment: Canc elled via OM: Order cancelled - Patient discharged Performed By: #### L 500.2500, L100.0100 ####[facility] [address] [place], [address] NEUT% Normal 47-70 [facility] Comment on above: Result Comment: Canc elled via OM: Order cancelled - Patient discharged Performed By: #### L 500.2500, L100.0100 ####[facility] [address] [place], [address] PLT Normal 150-450 [facility] Comment on above: Result Comment: Canc elled via OM: Order cancelled - Patient discharged Performed By: #### L 500.2500, L100.0100 ####[facility] [address] [place], [address] RBC Normal 4.2-5.4 [facility] Comment on above: Result Comment: Canc elled via OM: Order cancelled - Patient discharged Performed By: #### L 500.2500, L100.0100 ####[facility] [address] [place], [address] RDW CV Normal 11.6-14.6 [facility] Comment on above: Result Comment: Canc elled via OM: Order cancelled - Patient discharged Performed By: #### L 500.2500, L100.0100 ####[facility] [address] [place], [address] RDW SD Normal 35.1-43.9 [facility] Comment on above: Result Comment: Canc elled via OM: Order cancelled - Patient discharged Performed By: #### L 500.2500, L100.0100 ####[facility] [address] [place], [address] WBC Normal 4.4-11.0 [facility] Comment on above: Result Comment: Canc elled via OM: Order cancelled - Patient discharged Performed By: #### L 500.2500, L100.0100 ####[facility] [address] [place], [address] Absolute Lymph 2.24 X10 3/uL Normal 0.83-4.51 [facility] Comment on above: Performed By: #### L 503.7505, L500.2500, L100.0100, L501.5200 ####[facility] [address] [place], [address] Absolute Neut 5.8 X10 3/uL Normal 2.0-7.7 [facility] Comment on above: Performed By: #### L 503.7505, L500.2500, L100.0100, L501.5200 ####[facility] [address] [place], [address] Basophils/100 WBC (Bld) 0.1 % Normal 0-1 [facility] Comment on above: Performed By: #### L 503.7505, L500.2500, L100.0100, L501.5200 ####[facility] [address] [place], [address] Eosinophils/100 WBC (Bld) 2.8 % Normal 0-5 [facility] Comment on above: Performed By: #### L 503.7505, L500.2500, L100.0100, L501.5200 ####[facility] [address] [place], [address] Erythrocyte distribution width (RBC) [Ratio] 15.9 % High 11.6-14.6 [facility] Comment on above: Performed By: #### L 503.7505, L500.2500, L100.0100, L501.5200 ####[facility] [address] [place], [address] Hematocrit (Bld) [Volume fraction] 37.9 % Normal 37-47 [facility] Comment on above: Performed By: #### L 503.7505, L500.2500, L100.0100, L501.5200 ####[facility] [address] [place], [address] Hemoglobin (Bld) [Mass/Vol] 11.8 g/dL Low 12.0-15.0 [facility] Comment on above: Performed By: #### L 503.7505, L500.2500, L100.0100, L501.5200 ####[facility] [address] [place], [address] IG% 0.300 Normal 0.0-0.9 [facility] Comment on above: Result Comment: IG% - Immature Granulocytes (promyelocytes, myelocytes andmetamyelocytes) > 1% indicates that a LEFT SHIFT is Present. Performed By: #### L 503.7505, L500.2500, L100.0100, L501.5200 ####[facility] [address] [place], [address] Lymphocytes/100 WBC (Bld) 25.1 % Normal 19-41 [facility] Comment on above: Performed By: #### L 503.7505, L500.2500, L100.0100, L501.5200 ####[facility] [address] [place], [address] MCH (RBC) [Entitic mass] 27.3 pg Normal 27.0-32.0 [facility] Comment on above: Performed By: #### L 503.7505, L500.2500, L100.0100, L501.5200 ####[facility] [address] [place], [address] MCHC (RBC) [Mass/Vol] 31.1 g/dL Low 32-36 [facility] Comment on above: Performed By: #### L 503.7505, L500.2500, L100.0100, L501.5200 ####[facility] [address] [place], [address] MCV (RBC) [Entitic vol] 87.5 fL Normal 81-99 [facility] Comment on above: Performed By: #### L 503.7505, L500.2500, L100.0100, L501.5200 ####[facility] [address] [place], [address] Monocytes/100 WBC (Bld) 6.7 % Normal 0-10 [facility] Comment on above: Performed By: #### L 503.7505, L500.2500, L100.0100, L501.5200 ####[facility] [address] [place], [address] Neutrophils/100 WBC (Bld) 65.0 % Normal 47-70 [facility] Comment on above: Performed By: #### L 503.7505, L500.2500, L100.0100, L501.5200 ####[facility] [address] [place], [address] Nucleated RBC (Bld) [#/Vol] 0 10*3/uL Normal 0-5 [facility] Comment on above: Performed By: #### L 503.7505, L500.2500, L100.0100, L501.5200 ####[facility] [address] [place], [address] Platelet mean volume (Bld) [Entitic vol] 10.8 fL Normal 6.2-12.0 [facility] Comment on above: Performed By: #### L 503.7505, L500.2500, L100.0100, L501.5200 ####[facility] [address] [place], [address] Platelets (Bld) [#/Vol] 247 10*3/uL Normal 150-450 [facility] Comment on above: Performed By: #### L 503.7505, L500.2500, L100.0100, L501.5200 ####[facility] [address] [place], [address] RBC (Bld) [#/Vol] 4.33 10*6/uL Normal 4.2-5.4 [facility] Comment on above: Performed By: #### L 503.7505, L500.2500, L100.0100, L501.5200 ####[facility] [address] [place], [address] RDW SD 51.0 fl High 35.1-43.9 [facility] Comment on above: Performed By: #### L 503.7505, L500.2500, L100.0100, L501.5200 ####[facility] [address] [place], [address] WBC (Bld) [#/Vol] 8.9 10*3/uL Normal 4.4-11.0 [facility] Comment on above: Performed By: #### L 503.7505, L500.2500, L100.0100, L501.5200 ####[facility] [address] [place], [address] Carbon dioxide, total [Moles /volume] in Central venous bloodOrdered By: Jg Bryan on 01-26-2025 CO2 [Moles/Vol] 27.1 mmol/L 21.0-32.0 [facility] Chest PA and Lateralon 01-26 Chest PA and Lateral Normal [facility] Chloride assayOrdered By: Matilde Bryan on 01-26-2025 Chloride [Moles/Vol] 104 mmol/L 98-108 [facility] Emergency Department Summary on 01-26-2025 Emergency Department Summary Normal [facility] Eosinophil percentageOrdered By: Jg Bryan on 01-26-2025 Eosinophils/100 WBC (Bld) 2.8 % 0-5 [facility] Erythrocyte distribution wid th ratioOrdered By: Jg Bryan on 01-26-2025 Erythrocyte distribution width (RBC) [Ratio] 15.9 % High 11.6-14.6 [facility] Erythrocyte distribution wid th standard deviationOrdered By: Jg Bryan on 01-26-2025 Erythrocyte distribution width (RBC) [Ratio] 51.0 fl High 35.1-43.9 [facility] Glomerular filtration rate ( GFR) estimation/1.73 sq m using serum, plasma, or whole bOrdered By: Jg Bryan on 01-26-2025 GFR/1.73 sq M.predicted among non-blacks MDRD (S/P/Bld) [Vol rate/Area] 47 mL/min/{1.73_m2} Low >60 [facility] Hematocrit Auto (Bld) [Volum e fraction]Ordered By: Jg Bryan on 01-26-2025 Hematocrit (Bld) [Volume fraction] 37.9 % 37-47 [facility] Hemoglobin measurementOrdere d By: Jg Bryan on 01-26-2025 Hemoglobin (Bld) [Mass/Vol] 11.8 g/dL Low 12.0-15.0 [facility] Immature granulocytes/100 WB C Auto (Bld)Ordered By: Jg Bryan on 01-26-2025 Immature granulocytes/100 WBC (Bld) 0.300 % 0.0-0.9 [facility] L503.7505on 01-26-2025 Natriuretic peptide B (Bld) [Mass/Vol] 3334 pg/mL High <=1800 [facility] Comment on above: Result Comment: Hear t Failure Unlikely: < 300 pg/mLHeart Failure Likely< 50 Years: > 450 pg/mL50-75 Years: > 900 pg/mL>75 Years: > 1800 pg/mL Performed By: #### L 503.7505, L500.2500, L100.0100, L501.5200 ####[facility] [address] [place], [address] MCV (mean corpuscular volume ) determinationOrdered By: Jg Bryan on 01-26-2025 MCV (RBC) [Entitic vol] 87.5 fL 81-99 [facility] Magnesiumon 01-26-2025 Magnesium [Mass/Vol] 2.7 mg/dL High 1.5-2.2 [facility] Comment on above: Performed By: #### L 503.7505, L500.2500, L100.0100, L501.5200 ####[facility] [address] [place], [address] Magnesium measurement (mass/ volume)Ordered By: Jg Bryan on 01-26-2025 Magnesium (Unsp spec) [Mass/Vol] 2.7 mg/dL High 1.5-2.2 [facility] Mean corpuscular hemoglobin (MCH) determinationOrdered By: Jg Bryan on 01-26-2025 MCH (RBC) [Entitic mass] 27.3 pg 27.0-32.0 [facility] Monocyte percentageOrdered B y: Jg Bryan on 01-26-2025 Monocytes/100 WBC (Bld) 6.7 % 0-10 [facility] Natriuretic peptide.B prohor hayley N-Terminal [Mass/volume] in Serum or PlasmaOrdered By: Jg Bryan on 01-26-2025 Natriuretic peptide.B prohormone N-Terminal [Mass/Vol] 3334 pg/mL High <1800 [facility] Neutrophil percentageOrdered By: Jg Bryan on 01-26-2025 Neutrophils/100 WBC (Bld) 65.0 % 47-70 [facility] Platelet countOrdered By: Matilde Bryan on 01-26-2025 Platelets (Bld) [#/Vol] 247 10*3/uL 150-450 [facility] Potassium measurement (mass/ volume)Ordered By: Jg Bryan on 01-26-2025 Potassium (Unsp spec) [Mass/Vol] 4.1 mmol/L 3.3-5.1 [facility] RBC Auto (Bld) [#/Vol]Ordere d By: Jg Bryan on 01-26-2025 RBC (Bld) [#/Vol] 4.33 10*6/uL 4.2-5.4 [facility] Serum creatinine measurement (mass/volume)Ordered By: Jg Bryan on 01-26-2025 Creatinine [Mass/Vol] 1.16 mg/dL 0.70-1.20 [facility] Serum glucose measurement (m ass/volume)Ordered By: Jg Bryan on 01-26-2025 Glucose [Mass/Vol] 211 mg/dL High 70-99 [facility] Serum or plasma calcium melanie urement (mass/volume)Ordered By: Jg Bryan on 01-26-2025 Calcium [Mass/Vol] 10.2 mg/dL 7.6-11.0 [facility] Serum or plasma urea nitroge n measurement (mass/volume)Ordered By: Jg Bryan on 01-26-2025 Urea nitrogen [Mass/Vol] 35 mg/dL High - [facility] Sodium levelOrdered By: Cosme Bryan on 01-26-2025 Sodium [Moles/Vol] 141 mmol/L 133-145 [facility] White blood cell (WBC) count Ordered By: Jg Bryan on 01-26-2025 WBC (Bld) [#/Vol] 8.9 10*3/uL 4.4-11.0 [facility] Basic Metabolic Profile (BMP )on 01-25-2025 BUN Normal - [facility] Comment on above: Result Comment: Canc elled via OM: Order cancelled - Patient discharged Performed By: #### L 100.0100, L500.2500 ####[facility] [address] [place], [address] BUN/CRE Normal 10-20 [facility] Comment on above: Result Comment: Canc elled via OM: Order cancelled - Patient discharged Performed By: #### L 100.0100, L500.2500 ####[facility] [address] [place], [address] Calcium Normal 7.6-11.0 [facility] Comment on above: Result Comment: Canc elled via OM: Order cancelled - Patient discharged Performed By: #### L 100.0100, L500.2500 ####[facility] [address] [place], [address] CL Normal 98-108 [facility] Comment on above: Result Comment: Canc elled via OM: Order cancelled - Patient discharged Performed By: #### L 100.0100, L500.2500 ####[facility] [address] [place], [address] CO2 Normal 21.0-32.0 [facility] Comment on above: Result Comment: Canc elled via OM: Order cancelled - Patient discharged Performed By: #### L 100.0100, L500.2500 ####[facility] [address] [place], [address] CREAT,SERUM Normal 0.70-1.20 [facility] Comment on above: Result Comment: Canc elled via OM: Order cancelled - Patient discharged Performed By: #### L 100.0100, L500.2500 ####[facility] [address] [place], [address] eGFR Normal >60 [facility] Comment on above: Result Comment: Canc elled via OM: Order cancelled - Patient discharged Performed By: #### L 100.0100, L500.2500 ####[facility] [address] [place], [address] GAP Normal 5-15 [facility] Comment on above: Result Comment: Canc elled via OM: Order cancelled - Patient discharged Performed By: #### L 100.0100, L500.2500 ####[facility] [address] [place], [address] GLU Normal 70-99 [facility] Comment on above: Result Comment: Canc elled via OM: Order cancelled - Patient discharged Performed By: #### L 100.0100, L500.2500 ####[facility] [address] [place], [address] Potassium Normal 3.3-5.1 [facility] Comment on above: Result Comment: Canc elled via OM: Order cancelled - Patient discharged Performed By: #### L 100.0100, L500.2500 ####[facility] [address] [place], [address] Basic Metabolic Profile (BMP) Normal 133-145 [facility] Comment on above: Result Comment: Canc elled via OM: Order cancelled - Patient discharged Performed By: #### L 100.0100, L500.2500 ####[facility] [address] [place], [address] CBC W/Diff, Automatedon 05-2 -2024 Absolute Neut Normal 2.0-7.7 [facility] Comment on above: Result Comment: Canc elled via OM: Order cancelled - Patient discharged Performed By: #### L 100.0100, L500.2500 ####[facility] [address] [place], [address] HCT Normal 37-47 [facility] Comment on above: Result Comment: Canc elled via OM: Order cancelled - Patient discharged Performed By: #### L 100.0100, L500.2500 ####[facility] [address] [place], [address] HGB Normal 12.0-15.0 [facility] Comment on above: Result Comment: Canc elled via OM: Order cancelled - Patient discharged Performed By: #### L 100.0100, L500.2500 ####[facility] [address] [place], [address] MCH Normal 27.0-32.0 [facility] Comment on above: Result Comment: Canc elled via OM: Order cancelled - Patient discharged Performed By: #### L 100.0100, L500.2500 ####[facility] [address] [place], [address] MCHC Normal 32-36 [facility] Comment on above: Result Comment: Canc elled via OM: Order cancelled - Patient discharged Performed By: #### L 100.0100, L500.2500 ####[facility] [address] [place], [address] MCV Normal 81-99 [facility] Comment on above: Result Comment: Canc elled via OM: Order cancelled - Patient discharged Performed By: #### L 100.0100, L500.2500 ####[facility] [address] [place], [address] NEUT% Normal 47-70 [facility] Comment on above: Result Comment: Canc elled via OM: Order cancelled - Patient discharged Performed By: #### L 100.0100, L500.2500 ####[facility] [address] [place], [address] PLT Normal 150-450 [facility] Comment on above: Result Comment: Canc elled via OM: Order cancelled - Patient discharged Performed By: #### L 100.0100, L500.2500 ####[facility] [address] [place], [address] RBC Normal 4.2-5.4 [facility] Comment on above: Result Comment: Canc elled via OM: Order cancelled - Patient discharged Performed By: #### L 100.0100, L500.2500 ####[facility] [address] [place], [address] RDW CV Normal 11.6-14.6 [facility] Comment on above: Result Comment: Canc elled via OM: Order cancelled - Patient discharged Performed By: #### L 100.0100, L500.2500 ####[facility] [address] [place], [address] RDW SD Normal 35.1-43.9 [facility] Comment on above: Result Comment: Canc elled via OM: Order cancelled - Patient discharged Performed By: #### L 100.0100, L500.2500 ####[facility] [address] [place], [address] WBC Normal 4.4-11.0 [facility] Comment on above: Result Comment: Canc elled via OM: Order cancelled - Patient discharged Performed By: #### L 100.0100, L500.2500 ####[facility] [address] [place], [address] Culture, Blood (WB)on 2024 CUB Blood cultures x2, from two different sites No growth in 5 days. Normal [facility] Comment on above: Performed By: #### M 200.1000 ####[facility] [address] [place], [address] Performed By: #### M 200.1000, L503.6005 ####[facility] [address] [place], [address] Performed By: #### L 300.3900, L501.4021, L503.6005, L500.4050, L300.4310, L100.0100, M200.1000 ####[facility] [address] [place], [address] Absolute lymphocyte countOrd ered By: Melba Hartmann on 01-24-2025 Lymphocytes Auto (Unsp spec) [#/Vol] 2.19 10*3/uL 0.83-4.51 [facility] Anion gap in Serum or Plasma Ordered By: Melba Hartmann on 01-24-2025 Anion gap [Moles/Vol] 12 mmol/L 5-15 [facility] Automated lymphocyte count a s percentage of total leukocytesOrdered By: Melba Elizondojanene on 01-24-2025 Lymphocytes/100 WBC Auto (Unsp spec) 19.3 % - [facility] BUN/creatinine ratioOrdered By: Melba Elizondojanene on 01-24-2025 Urea nitrogen/Creatinine [Mass ratio] 35.2 mg/mg High - [facility] Basic Metabolic Profile (BMP )on 01-24-2025 BUN/CRE 35.2 RATIO High 06-19 [facility] Comment on above: Performed By: #### L 500.2500, L100.0100 ####[facility] [address] [place], [address] Calcium [Mass/Vol] 10.1 mg/dL Normal 7.6-11.0 [facility] Comment on above: Performed By: #### L 500.2500, L100.0100 ####[facility] [address] [place], [address] Chloride [Moles/Vol] 102 mmol/L Normal 98-108 [facility] Comment on above: Performed By: #### L 500.2500, L100.0100 ####[facility] [address] [place], [address] CO2 [Moles/Vol] 23.7 mmol/L Normal 21.0-32.0 [facility] Comment on above: Performed By: #### L 500.2500, L100.0100 ####[facility] [address] [place], [address] Creatinine [Mass/Vol] 1.31 mg/dL High 0.70-1.20 [facility] Comment on above: Performed By: #### L 500.2500, L100.0100 ####[facility] [address] [place], [address] ECRCL 33.41 ml/min Low 50-250 [facility] Comment on above: Performed By: #### L 500.2500, L100.0100 ####[facility] [address] [place], [address] GAP 12 Normal 5-15 [facility] Comment on above: Performed By: #### L 500.2500, L100.0100 ####[facility] [address] [place], [address] GFR/1.73 sq M.predicted among non-blacks MDRD (S/P/Bld) [Vol rate/Area] 41 mL/min/{1.73_m2} Low >60 [facility] Comment on above: Result Comment: mL/m in/1.73m2 CKD-EPI Creatinine Equation (2020) Performed By: #### L 500.2500, L100.0100 ####[facility] [address] [place], [address] Glucose [Mass/Vol] 133 mg/dL High 70-99 [facility] Comment on above: Performed By: #### L 500.2500, L100.0100 ####[facility] [address] [place], [address] Potassium [Moles/Vol] 3.5 mmol/L Normal 3.3-5.1 [facility] Comment on above: Performed By: #### L 500.2500, L100.0100 ####[facility] [address] [place], [address] Sodium [Moles/Vol] 138 mmol/L Normal 133-145 [facility] Comment on above: Performed By: #### L 500.2500, L100.0100 ####[facility] [address] [place], [address] Urea nitrogen [Mass/Vol] 46 mg/dL High 4-19 [facility] Comment on above: Performed By: #### L 500.2500, L100.0100 ####[facility] [address] [place], [address] Basophil percentageOrdered B y: Melba Hartmann on 01-24-2025 Basophils/100 WBC (Bld) 0.2 % 0-1 [facility] Bedside Glucoseon 01-24-2025 FINGERSTICK GLU 167 mg/dL High 74-106 [facility] Comment on above: Result Comment: KATARINA GEMENT OF PATIENT CARE PER NURSING PROTOCOL Performed By: #### L 501.080 ####[facility] [address] [place], [address] FINGERSTICK GLU 143 mg/dL High 74-106 [facility] Comment on above: Result Comment: KAATRINA GEMENT OF PATIENT CARE PER NURSING PROTOCOL Performed By: #### L 501.080 ####[facility] [address] [place], [address] CBC W/Diff, Automatedon 12-30 Absolute Lymph 2.19 X10 3/uL Normal 0.83-4.51 [facility] Comment on above: Performed By: #### L 500.2500, L100.0100 ####[facility] [address] [place], [address] Absolute Neut 8.2 X10 3/uL High 2.0-7.7 [facility] Comment on above: Performed By: #### L 500.2500, L100.0100 ####[facility] [address] [place], [address] Basophils/100 WBC (Bld) 0.2 % Normal 0-1 [facility] Comment on above: Performed By: #### L 500.2500, L100.0100 ####[facility] [address] [place], [address] Eosinophils/100 WBC (Bld) 0.2 % Normal 0-5 [facility] Comment on above: Performed By: #### L 500.2500, L100.0100 ####[facility] [address] [place], [address] Erythrocyte distribution width (RBC) [Ratio] 15.8 % High 11.6-14.6 [facility] Comment on above: Performed By: #### L 500.2500, L100.0100 ####[facility] [address] [place], [address] Hematocrit (Bld) [Volume fraction] 40.7 % Normal 37-47 [facility] Comment on above: Performed By: #### L 500.2500, L100.0100 ####[facility] [address] [place], [address] Hemoglobin (Bld) [Mass/Vol] 12.7 g/dL Normal 12.0-15.0 [facility] Comment on above: Performed By: #### L 500.2500, L100.0100 ####[facility] [address] [place], [address] IG% 0.400 Normal 0.0-0.9 [facility] Comment on above: Result Comment: IG% - Immature Granulocytes (promyelocytes, myelocytes andmetamyelocytes) > 1% indicates that a LEFT SHIFT is Present. Performed By: #### L 500.2500, L100.0100 ####[facility] [address] [place], [address] Lymphocytes/100 WBC (Bld) 19.3 % Normal 19-41 [facility] Comment on above: Performed By: #### L 500.2500, L100.0100 ####[facility] [address] [place], [address] MCH (RBC) [Entitic mass] 27.4 pg Normal 27.0-32.0 [facility] Comment on above: Performed By: #### L 500.2500, L100.0100 ####[facility] [address] [place], [address] MCHC (RBC) [Mass/Vol] 31.2 g/dL Low 32-36 [facility] Comment on above: Performed By: #### L 500.2500, L100.0100 ####[facility] [address] [place], [address] MCV (RBC) [Entitic vol] 87.7 fL Normal 81-99 [facility] Comment on above: Performed By: #### L 500.2500, L100.0100 ####[facility] [address] [place], [address] Monocytes/100 WBC (Bld) 7.4 % Normal 0-10 [facility] Comment on above: Performed By: #### L 500.2500, L100.0100 ####[facility] [address] [place], [address] Neutrophils/100 WBC (Bld) 72.5 % High 47-70 [facility] Comment on above: Performed By: #### L 500.2500, L100.0100 ####[facility] [address] [place], [address] Nucleated RBC (Bld) [#/Vol] 0 10*3/uL Normal 0-5 [facility] Comment on above: Performed By: #### L 500.2500, L100.0100 ####[facility] [address] [place], [address] Platelet mean volume (Bld) [Entitic vol] 10.9 fL Normal 6.2-12.0 [facility] Comment on above: Performed By: #### L 500.2500, L100.0100 ####[facility] [address] [place], [address] Platelets (Bld) [#/Vol] 297 10*3/uL Normal 150-450 [facility] Comment on above: Performed By: #### L 500.2500, L100.0100 ####[facility] [address] [place], [address] RBC (Bld) [#/Vol] 4.64 10*6/uL Normal 4.2-5.4 [facility] Comment on above: Performed By: #### L 500.2500, L100.0100 ####[facility] [address] [place], [address] RDW SD 50.9 fl High 35.1-43.9 [facility] Comment on above: Performed By: #### L 500.2500, L100.0100 ####[facility] [address] [place], [address] WBC (Bld) [#/Vol] 11.3 10*3/uL High 4.4-11.0 [facility] Comment on above: Performed By: #### L 500.2500, L100.0100 ####[facility] [address] [place], [address] Carbon dioxide, total [Moles /volume] in Central venous bloodOrdered By: Melba Hartmann on 01-24-2025 CO2 [Moles/Vol] 23.7 mmol/L 21.0-32.0 [facility] Chloride assayOrdered By: Marifer Hartmann on 01-24-2025 Chloride [Moles/Vol] 102 mmol/L 98-108 [facility] Discharge Instructionon 12-30 Discharge Instruction Normal [facility] Electrocardiogram reportOrde red By: Marcelina Soto on 01-24-2025 EKG study [facility] Work Phone: [phone] Eosinophil percentageOrdered By: Melba Hartmann on 01-24-2025 Eosinophils/100 WBC (Bld) 0.2 % 0-5 [facility] Erythrocyte distribution wid th ratioOrdered By: Melba Hartmann on 01-24-2025 Erythrocyte distribution width (RBC) [Ratio] 15.8 % High 11.6-14.6 [facility] Erythrocyte distribution wid th standard deviationOrdered By: Melba Hartmann on 01-24-2025 Erythrocyte distribution width (RBC) [Ratio] 50.9 fl High 35.1-43.9 [facility] Glomerular filtration rate ( GFR) estimation/1.73 sq m using serum, plasma, or whole bOrdered By: Melba Hartmann on 01-24-2025 GFR/1.73 sq M.predicted among non-blacks MDRD (S/P/Bld) [Vol rate/Area] 41 mL/min/{1.73_m2} Low >60 [facility] deOrdered By: Melba Hartmann on 01-24-2025 Glucose [Mass/Vol] 167 mg/dL High 74-106 [facility] Hematocrit Auto (Bld) [Volum e fraction]Ordered By: Melba Hartmann 01-24-2025 Hematocrit (Bld) [Volume fraction] 40.7 % 37-47 [facility] Hemoglobin measurementOrdere d By: Melba Hartmann on 01-24-2025 Hemoglobin (Bld) [Mass/Vol] 12.7 g/dL 12.0-15.0 [facility] Immature granulocytes/100 WB C Auto (Bld)Ordered By: Melba Hartmann 01-24-2025 Immature granulocytes/100 WBC (Bld) 0.400 % 0.0-0.9 [facility] MCV (mean corpuscular volume ) determinationOrdered By: Melba Hartmann 01-24-2025 MCV (RBC) [Entitic vol] 87.7 fL 81-99 [facility] Mean corpuscular hemoglobin (MCH) determinationOrdered By: Melba Hartmann 01-24-2025 MCH (RBC) [Entitic mass] 27.4 pg 27.0-32.0 [facility] Monocyte percentageOrdered B y: Melba Hartmann on 05-27-2025 Monocytes/100 WBC (Bld) 7.4 % 0-10 [facility] Neutrophil percentageOrdered By: Melba Hartmann on 01-24-2025 Neutrophils/100 WBC (Bld) 72.5 % High 47-70 [facility] Platelet countOrdered By: Marifer Hartmann on 01-24-2025 Platelets (Bld) [#/Vol] 297 10*3/uL 150-450 [facility] Potassium measurement (mass/ volume)Ordered By: Melba Hartmann on 01-24-2025 Potassium (Unsp spec) [Mass/Vol] 3.5 mmol/L 3.3-5.1 [facility] RBC Auto (Bld) [#/Vol]Ordere d By: Melba Hartmann on 01-24-2025 RBC (Bld) [#/Vol] 4.64 10*6/uL 4.2-5.4 [facility] Serum creatinine measurement (mass/volume)Ordered By: Melba Hartmann on 01-24-2025 Creatinine [Mass/Vol] 1.31 mg/dL High 0.70-1.20 [facility] Serum glucose measurement (m ass/volume)Ordered By: Melba Hartmann on 01-24-2025 Glucose [Mass/Vol] 133 mg/dL High 70-99 [facility] Serum or plasma calcium melanie urement (mass/volume)Ordered By: Melba Hartmann on 01-24-2025 Calcium [Mass/Vol] 10.1 mg/dL 7.6-11.0 [facility] Serum or plasma urea nitroge n measurement (mass/volume)Ordered By: Melba Hartmann on 01-24-2025 Urea nitrogen [Mass/Vol] 46 mg/dL High 4-19 [facility] Sodium levelOrdered By: Melba Hartmann on 01-24-2025 Sodium [Moles/Vol] 138 mmol/L 133-145 [facility] White blood cell (WBC) count Ordered By: Melba Hartmann on 01-24-2025 WBC (Bld) [#/Vol] 11.3 10*3/uL High 4.4-11.0 [facility] Basic Metabolic Profile (BMP )on 01-23-2025 BUN/CRE 33.0 RATIO High 10-20 [facility] Comment on above: Performed By: #### L 100.0100, L500.2500 ####[facility] [address] [place], [address] Calcium [Mass/Vol] 10.8 mg/dL Normal 7.6-11.0 [facility] Comment on above: Performed By: #### L 100.0100, L500.2500 ####[facility] [address] [place], [address] Chloride [Moles/Vol] 98 mmol/L Normal 98-108 [facility] Comment on above: Performed By: #### L 100.0100, L500.2500 ####[facility] [address] [place], [address] CO2 [Moles/Vol] 25.4 mmol/L Normal 21.0-32.0 [facility] Comment on above: Performed By: #### L 100.0100, L500.2500 ####[facility] [address] [place], [address] Creatinine [Mass/Vol] 1.32 mg/dL High 0.70-1.20 [facility] Comment on above: Performed By: #### L 100.0100, L500.2500 ####[facility] [address] [place], [address] ECRCL 32.84 ml/min Low 50-250 [facility] Comment on above: Performed By: #### L 100.0100, L500.2500 ####[facility] [address] [place], [address] GAP 12 Normal 5-15 [facility] Comment on above: Performed By: #### L 100.0100, L500.2500 ####[facility] [address] [place], [address] GFR/1.73 sq M.predicted among non-blacks MDRD (S/P/Bld) [Vol rate/Area] 41 mL/min/{1.73_m2} Low >60 [facility] Comment on above: Result Comment: mL/m in/1.73m2 CKD-EPI Creatinine Equation (2020) Performed By: #### L 100.0100, L500.2500 ####[facility] [address] [place], [address] Glucose [Mass/Vol] 200 mg/dL High 70-99 [facility] Comment on above: Performed By: #### L 100.0100, L500.2500 ####[facility] [address] [place], [address] Potassium [Moles/Vol] 5.2 mmol/L High 3.3-5.1 [facility] Comment on above: Result Comment: Hemo lysis present, Results??could be affected.?? Performed By: #### L 100.0100, L500.2500 ####[facility] [address] [place], [address] Sodium [Moles/Vol] 135 mmol/L Normal 133-145 [facility] Comment on above: Performed By: #### L 100.0100, L500.2500 ####[facility] [address] [place], [address] Urea nitrogen [Mass/Vol] 44 mg/dL High 4-19 [facility] Comment on above: Performed By: #### L 100.0100, L500.2500 ####[facility] [address] [place], [address] Bedside Glucoseon 01-23-2025 FINGERSTICK GLU 294 mg/dL High 74-106 [facility] Comment on above: Result Comment: KATARINA GARY OF PATIENT CARE PER NURSING PROTOCOL Performed By: #### L 501.080 ####[facility] [address] [place], [address] FINGERSTICK GLU 314 mg/dL High 74-106 [facility] Comment on above: Result Comment: KATARINA GEMENT OF PATIENT CARE PER NURSING PROTOCOL Performed By: #### L 501.080 ####[facility] [address] [place], [address] FINGERSTICK GLU 291 mg/dL High 74-106 [facility] Comment on above: Result Comment: KATARINA GEMENT OF PATIENT CARE PER NURSING PROTOCOL Performed By: #### L 501.080 ####[facility] [address] [place], [address] FINGERSTICK GLU 214 mg/dL High 74-106 [facility] Comment on above: Result Comment: KATARINA GEMENT OF PATIENT CARE PER NURSING PROTOCOL Performed By: #### L 501.080 ####[facility] [address] [place], [address] CBC W/Diff, Automatedon 05-2 6-2024 Absolute Lymph 0.74 X10 3/uL Low 0.83-4.51 [facility] Comment on above: Performed By: #### L 100.0100, L500.2500 ####[facility] [address] [place], [address] Absolute Neut 10.9 X10 3/uL High 2.0-7.7 [facility] Comment on above: Performed By: #### L 100.0100, L500.2500 ####[facility] [address] [place], [address] Basophils/100 WBC (Bld) 0.1 % Normal 0-1 [facility] Comment on above: Performed By: #### L 100.0100, L500.2500 ####[facility] [address] [place], [address] Eosinophils/100 WBC (Bld) 0.0 % Normal 0-5 [facility] Comment on above: Performed By: #### L 100.0100, L500.2500 ####[facility] [address] [place], [address] Erythrocyte distribution width (RBC) [Ratio] 15.8 % High 11.6-14.6 [facility] Comment on above: Performed By: #### L 100.0100, L500.2500 ####[facility] [address] [place], [address] Hematocrit (Bld) [Volume fraction] 41.8 % Normal 37-47 [facility] Comment on above: Performed By: #### L 100.0100, L500.2500 ####[facility] [address] [place], [address] Hemoglobin (Bld) [Mass/Vol] 13.1 g/dL Normal 12.0-15.0 [facility] Comment on above: Performed By: #### L 100.0100, L500.2500 ####[facility] [address] [place], [address] IG% 0.200 Normal 0.0-0.9 [facility] Comment on above: Result Comment: IG% - Immature Granulocytes (promyelocytes, myelocytes andmetamyelocytes) > 1% indicates that a LEFT SHIFT is Present. Performed By: #### L 100.0100, L500.2500 ####[facility] [address] [place], [address] Lymphocytes/100 WBC (Bld) 6.2 % Low 19-41 [facility] Comment on above: Performed By: #### L 100.0100, L500.2500 ####[facility] [address] [place], [address] MCH (RBC) [Entitic mass] 27.3 pg Normal 27.0-32.0 [facility] Comment on above: Performed By: #### L 100.0100, L500.2500 ####[facility] [address] [place], [address] MCHC (RBC) [Mass/Vol] 31.3 g/dL Low 32-36 [facility] Comment on above: Performed By: #### L 100.0100, L500.2500 ####[facility] [address] [place], [address] MCV (RBC) [Entitic vol] 87.1 fL Normal 81-99 [facility] Comment on above: Performed By: #### L 100.0100, L500.2500 ####[facility] [address] [place], [address] Monocytes/100 WBC (Bld) 2.7 % Normal 0-10 [facility] Comment on above: Performed By: #### L 100.0100, L500.2500 ####[facility] [address] [place], [address] Neutrophils/100 WBC (Bld) 90.8 % High 47-70 [facility] Comment on above: Performed By: #### L 100.0100, L500.2500 ####[facility] [address] [place], [address] Nucleated RBC (Bld) [#/Vol] 0 10*3/uL Normal 0-5 [facility] Comment on above: Performed By: #### L 100.0100, L500.2500 ####[facility] [address] [place], [address] Platelet mean volume (Bld) [Entitic vol] 11.6 fL Normal 6.2-12.0 [facility] Comment on above: Performed By: #### L 100.0100, L500.2500 ####[facility] [address] [place], [address] Platelets (Bld) [#/Vol] 322 10*3/uL Normal 150-450 [facility] Comment on above: Performed By: #### L 100.0100, L500.2500 ####[facility] [address] [place], [address] RBC (Bld) [#/Vol] 4.80 10*6/uL Normal 4.2-5.4 [facility] Comment on above: Performed By: #### L 100.0100, L500.2500 ####[facility] [address] [place], [address] RDW SD 50.2 fl High 35.1-43.9 [facility] Comment on above: Performed By: #### L 100.0100, L500.2500 ####[facility] [address] [place], [address] WBC (Bld) [#/Vol] 12.0 10*3/uL High 4.4-11.0 [facility] Comment on above: Performed By: #### L 100.0100, L500.2500 ####[facility] [address] [place], [address] Basic Metabolic Profile (BMP )on 01-22-2025 BUN/CRE 29.2 RATIO High 10-20 [facility] Comment on above: Performed By: #### L 500.2500, L100.0100 ####[facility] [address] [place], [address] Calcium [Mass/Vol] 10.2 mg/dL Normal 7.6-11.0 [facility] Comment on above: Performed By: #### L 500.2500, L100.0100 ####[facility] [address] [place], [address] Chloride [Moles/Vol] 99 mmol/L Normal 98-108 [facility] Comment on above: Performed By: #### L 500.2500, L100.0100 ####[facility] [address] [place], [address] CO2 [Moles/Vol] 27.0 mmol/L Normal 21.0-32.0 [facility] Comment on above: Performed By: #### L 500.2500, L100.0100 ####[facility] [address] [place], [address] Creatinine [Mass/Vol] 1.07 mg/dL Normal 0.70-1.20 [facility] Comment on above: Performed By: #### L 500.2500, L100.0100 ####[facility] [address] [place], [address] ECRCL 40.54 ml/min Low 50-250 [facility] Comment on above: Performed By: #### L 500.2500, L100.0100 ####[facility] [address] [place], [address] GAP 10 Normal 5-15 [facility] Comment on above: Performed By: #### L 500.2500, L100.0100 ####[facility] [address] [place], [address] GFR/1.73 sq M.predicted among non-blacks MDRD (S/P/Bld) [Vol rate/Area] 52 mL/min/{1.73_m2} Low >60 [facility] Comment on above: Result Comment: mL/m in/1.73m2 CKD-EPI Creatinine Equation (2020) Performed By: #### L 500.2500, L100.0100 ####[facility] [address] [place], [address] Glucose [Mass/Vol] 160 mg/dL High 70-99 [facility] Comment on above: Performed By: #### L 500.2500, L100.0100 ####[facility] [address] [place], [address] Potassium [Moles/Vol] 4.8 mmol/L Normal 3.3-5.1 [facility] Comment on above: Performed By: #### L 500.2500, L100.0100 ####[facility] [address] [place], [address] Sodium [Moles/Vol] 136 mmol/L Normal 133-145 [facility] Comment on above: Performed By: #### L 500.2500, L100.0100 ####[facility] [address] [place], [address] Urea nitrogen [Mass/Vol] 31 mg/dL High 4-19 [facility] Comment on above: Performed By: #### L 500.2500, L100.0100 ####[facility] [address] [place], [address] Bedside Glucoseon 01-22-2025 FINGERSTICK GLU 310 mg/dL High 74-106 [facility] Comment on above: Result Comment: KATARINA GEMENT OF PATIENT CARE PER NURSING PROTOCOL Performed By: #### L 501.080 ####[facility] [address] [place], [address] FINGERSTICK GLU 269 mg/dL High 74-106 [facility] Comment on above: Result Comment: KATARINA GEMENT OF PATIENT CARE PER NURSING PROTOCOL Performed By: #### L 501.080 ####[facility] [address] [place], [address] FINGERSTICK GLU 232 mg/dL High 74-106 [facility] Comment on above: Result Comment: KATARINA GEMENT OF PATIENT CARE PER NURSING PROTOCOL Performed By: #### L 501.080 ####[facility] [address] [place], [address] FINGERSTICK GLU 183 mg/dL High 74-106 [facility] Comment on above: Result Comment: KATARINA GEMENT OF PATIENT CARE PER NURSING PROTOCOL Performed By: #### L 501.080 ####[facility] [address] [place], [address] CBC W/Diff, Automatedon 05-2 -2024 Absolute Lymph 0.73 X10 3/uL Low 0.83-4.51 [facility] Comment on above: Performed By: #### L 500.2500, L100.0100 ####[facility] [address] [place], [address] Absolute Neut 11.7 X10 3/uL High 2.0-7.7 [facility] Comment on above: Performed By: #### L 500.2500, L100.0100 ####[facility] [address] [place], [address] Basophils/100 WBC (Bld) 0.0 % Normal 0-1 [facility] Comment on above: Performed By: #### L 500.2500, L100.0100 ####[facility] [address] [place], [address] Eosinophils/100 WBC (Bld) 0.0 % Normal 0-5 [facility] Comment on above: Performed By: #### L 500.2500, L100.0100 ####[facility] [address] [place], [address] Erythrocyte distribution width (RBC) [Ratio] 15.9 % High 11.6-14.6 [facility] Comment on above: Performed By: #### L 500.2500, L100.0100 ####[facility] [address] [place], [address] Hematocrit (Bld) [Volume fraction] 35.6 % Low 37-47 [facility] Comment on above: Performed By: #### L 500.2500, L100.0100 ####[facility] [address] [place], [address] Hemoglobin (Bld) [Mass/Vol] 11.1 g/dL Low 12.0-15.0 [facility] Comment on above: Performed By: #### L 500.2500, L100.0100 ####[facility] [address] [place], [address] IG% 0.500 Normal 0.0-0.9 [facility] Comment on above: Result Comment: IG% - Immature Granulocytes (promyelocytes, myelocytes andmetamyelocytes) > 1% indicates that a LEFT SHIFT is Present. Performed By: #### L 500.2500, L100.0100 ####[facility] [address] [place], [address] Lymphocytes/100 WBC (Bld) 5.7 % Low 19-41 [facility] Comment on above: Performed By: #### L 500.2500, L100.0100 ####[facility] [address] [place], [address] MCH (RBC) [Entitic mass] 27.3 pg Normal 27.0-32.0 [facility] Comment on above: Performed By: #### L 500.2500, L100.0100 ####[facility] [address] [place], [address] MCHC (RBC) [Mass/Vol] 31.2 g/dL Low 32-36 [facility] Comment on above: Performed By: #### L 500.2500, L100.0100 ####[facility] [address] [place], [address] MCV (RBC) [Entitic vol] 87.7 fL Normal 81-99 [facility] Comment on above: Performed By: #### L 500.2500, L100.0100 ####[facility] [address] [place], [address] Monocytes/100 WBC (Bld) 2.4 % Normal 0-10 [facility] Comment on above: Performed By: #### L 500.2500, L100.0100 ####[facility] [address] [place], [address] Neutrophils/100 WBC (Bld) 91.4 % High 47-70 [facility] Comment on above: Performed By: #### L 500.2500, L100.0100 ####[facility] [address] [place], [address] Nucleated RBC (Bld) [#/Vol] 0 10*3/uL Normal 0-5 [facility] Comment on above: Performed By: #### L 500.2500, L100.0100 ####[facility] [address] [place], [address] Platelet mean volume (Bld) [Entitic vol] 11.1 fL Normal 6.2-12.0 [facility] Comment on above: Performed By: #### L 500.2500, L100.0100 ####[facility] [address] [place], [address] Platelets (Bld) [#/Vol] 281 10*3/uL Normal 150-450 [facility] Comment on above: Performed By: #### L 500.2500, L100.0100 ####[facility] [address] [place], [address] RBC (Bld) [#/Vol] 4.06 10*6/uL Low 4.2-5.4 [facility] Comment on above: Performed By: #### L 500.2500, L100.0100 ####[facility] [address] [place], [address] RDW SD 51.3 fl High 35.1-43.9 [facility] Comment on above: Performed By: #### L 500.2500, L100.0100 ####[facility] [address] [place], [address] WBC (Bld) [#/Vol] 12.8 10*3/uL High 4.4-11.0 [facility] Comment on above: Performed By: #### L 500.2500, L100.0100 ####[facility] [address] [place], [address] Urine Cultureon 01-22-2025 URC Normal [facility] Comment on above: Performed By: #### M 100.2200 ####[facility] [address] [place], [address] Basic Metabolic Profile (BMP )on 01-21-2025 BUN/CRE 19.6 RATIO Normal 10-20 [facility] Comment on above: Performed By: #### L 503.7505, L500.2500 ####[facility] [address] [place], [address] Calcium [Mass/Vol] 9.8 mg/dL Normal 7.6-11.0 [facility] Comment on above: Performed By: #### L 503.7505, L500.2500 ####[facility] [address] [place], [address] Chloride [Moles/Vol] 99 mmol/L Normal 98-108 [facility] Comment on above: Performed By: #### L 503.7505, L500.2500 ####[facility] [address] [place], [address] CO2 [Moles/Vol] 24.3 mmol/L Normal 21.0-32.0 [facility] Comment on above: Performed By: #### L 503.7505, L500.2500 ####[facility] [address] [place], [address] Creatinine [Mass/Vol] 1.19 mg/dL Normal 0.70-1.20 [facility] Comment on above: Performed By: #### L 503.7505, L500.2500 ####[facility] [address] [place], [address] ECRCL 36.45 ml/min Low 50-250 [facility] Comment on above: Performed By: #### L 503.7505, L500.2500 ####[facility] [address] [place], [address] GAP 14 Normal 5-15 [facility] Comment on above: Performed By: #### L 503.7505, L500.2500 ####[facility] [address] [place], [address] GFR/1.73 sq M.predicted among non-blacks MDRD (S/P/Bld) [Vol rate/Area] 46 mL/min/{1.73_m2} Low >60 [facility] Comment on above: Result Comment: mL/m in/1.73m2 CKD-EPI Creatinine Equation (2020) Performed By: #### L 503.7505, L500.2500 ####[facility] [address] [place], [address] Glucose [Mass/Vol] 208 mg/dL High 70-99 [facility] Comment on above: Performed By: #### L 503.7505, L500.2500 ####[facility] [address] [place], [address] Potassium [Moles/Vol] 4.0 mmol/L Normal 3.3-5.1 [facility] Comment on above: Performed By: #### L 503.7505, L500.2500 ####[facility] [address] [place], [address] Sodium [Moles/Vol] 138 mmol/L Normal 133-145 [facility] Comment on above: Performed By: #### L 503.7505, L500.2500 ####[facility] [address] [place], [address] Urea nitrogen [Mass/Vol] 23 mg/dL High 4-19 [facility] Comment on above: Performed By: #### L 503.7505, L500.2500 ####[facility] [address] [place], [address] Bedside Glucoseon - FINGERSTICK GLU 271 mg/dL High 74-106 [facility] Comment on above: Result Comment: KATARINA GEMENT OF PATIENT CARE PER NURSING PROTOCOL Performed By: #### L 501.080 ####[facility] [address] [place], [address] FINGERSTICK GLU 254 mg/dL High 74-106 [facility] Comment on above: Result Comment: KATARINA GEMENT OF PATIENT CARE PER NURSING PROTOCOL Performed By: #### L 501.080 ####[facility] [address] [place], [address] FINGERSTICK GLU 323 mg/dL High 74-106 [facility] Comment on above: Result Comment: KATARINA GEMENT OF PATIENT CARE PER NURSING PROTOCOL Performed By: #### L 501.080 ####[facility] [address] [place], [address] FINGERSTICK GLU 202 mg/dL High 74-106 [facility] Comment on above: Result Comment: KATARINA GEMENT OF PATIENT CARE PER NURSING PROTOCOL Performed By: #### L 501.080 ####[facility] [address] [place], [address] CBC W/Diff, Automatedon 05-2 Absolute Lymph 0.79 X10 3/uL Low 0.83-4.51 [facility] Comment on above: Performed By: #### L 100.0100 ####[facility] [address] [place], [address] Absolute Neut 9.1 X10 3/uL High 2.0-7.7 [facility] Comment on above: Performed By: #### L 100.0100 ####[facility] [address] [place], [address] Basophils/100 WBC (Bld) 0.0 % Normal 0-1 [facility] Comment on above: Performed By: #### L 100.0100 ####[facility] [address] [place], [address] Eosinophils/100 WBC (Bld) 0.0 % Normal 0-5 [facility] Comment on above: Performed By: #### L 100.0100 ####[facility] [address] [place], [address] Erythrocyte distribution width (RBC) [Ratio] 16.0 % High 11.6-14.6 [facility] Comment on above: Performed By: #### L 100.0100 ####[facility] [address] [place], [address] Hematocrit (Bld) [Volume fraction] 35.0 % Low 37-47 [facility] Comment on above: Performed By: #### L 100.0100 ####[facility] [address] [place], [address] Hemoglobin (Bld) [Mass/Vol] 10.8 g/dL Low 12.0-15.0 [facility] Comment on above: Performed By: #### L 100.0100 ####[facility] [address] [place], [address] IG% 0.400 Normal 0.0-0.9 [facility] Comment on above: Result Comment: IG% - Immature Granulocytes (promyelocytes, myelocytes andmetamyelocytes) > 1% indicates that a LEFT SHIFT is Present. Performed By: #### L 100.0100 ####[facility] [address] [place], [address] Lymphocytes/100 WBC (Bld) 7.7 % Low 19-41 [facility] Comment on above: Performed By: #### L 100.0100 ####[facility] [address] [place], [address] MCH (RBC) [Entitic mass] 27.4 pg Normal 27.0-32.0 [facility] Comment on above: Performed By: #### L 100.0100 ####[facility] [address] [place], [address] MCHC (RBC) [Mass/Vol] 30.9 g/dL Low 32-36 [facility] Comment on above: Performed By: #### L 100.0100 ####[facility] [address] [place], [address] MCV (RBC) [Entitic vol] 88.8 fL Normal 81-99 [facility] Comment on above: Performed By: #### L 100.0100 ####[facility] [address] [place], [address] Monocytes/100 WBC (Bld) 3.5 % Normal 0-10 [facility] Comment on above: Performed By: #### L 100.0100 ####[facility] [address] [place], [address] Neutrophils/100 WBC (Bld) 88.4 % High 47-70 [facility] Comment on above: Performed By: #### L 100.0100 ####[facility] [address] [place], [address] Nucleated RBC (Bld) [#/Vol] 0 10*3/uL Normal 0-5 [facility] Comment on above: Performed By: #### L 100.0100 ####[facility] [address] [place], [address] Platelet mean volume (Bld) [Entitic vol] 11.0 fL Normal 6.2-12.0 [facility] Comment on above: Performed By: #### L 100.0100 ####[facility] [address] [place], [address] Platelets (Bld) [#/Vol] 245 10*3/uL Normal 150-450 [facility] Comment on above: Performed By: #### L 100.0100 ####[facility] [address] [place], [address] RBC (Bld) [#/Vol] 3.94 10*6/uL Low 4.2-5.4 [facility] Comment on above: Performed By: #### L 100.0100 ####[facility] [address] [place], [address] RDW SD 51.8 fl High 35.1-43.9 [facility] Comment on above: Performed By: #### L 100.0100 ####[facility] [address] [place], [address] WBC (Bld) [#/Vol] 10.3 10*3/uL Normal 4.4-11.0 [facility] Comment on above: Performed By: #### L 100.0100 ####[facility] [address] [place], [address] Chest 1 View (Portable)on Chest 1 View (Portable) Normal [facility] L503.7505on 01-21-2025 Natriuretic peptide B (Bld) [Mass/Vol] 04272 pg/mL High <=1800 [facility] Comment on above: Result Comment: Hear t Failure Unlikely: < 300 pg/mLHeart Failure Likely< 50 Years: > 450 pg/mL50-75 Years: > 900 pg/mL>75 Years: > 1800 pg/mL Performed By: #### L 503.7505, L500.2500 ####[facility] [address] [place], [address] Natriuretic peptide.B prohor hayley N-Terminal [Mass/volume] in Serum or PlasmaOrdered By: Sandeep Marie on 01-21-2025 Natriuretic peptide.B prohormone N-Terminal [Mass/Vol] 29462 pg/mL High <1800 [facility] 12 Lead EKGon 01-20-2025 12 Lead EKG Normal [facility] Activated partial thrombopla stin time (aPTT) in platelet poor plasma by coagulation aOrdered By: Jeevan Yoder on 01-20-2025 aPTT Coag (PPP) [Time] 26.9 s 24.1-36.2 [facility] Assessment of wrist artery p atency prior to arterial punctureOrdered By: Lucio Borden on 01-20-2025 Arterial patency Wrist artery --pre arterial puncture Positive [facility] Bedside Glucoseon 01-20-2025 FINGERSTICK GLU 265 mg/dL High [facility]106 [facility] Comment on above: Result Comment: KATARINA GEMENT OF PATIENT CARE PER NURSING PROTOCOL Performed By: #### L 501.080 ####[facility] [address] [facility] [address] FINGERSTICK GLU 389 mg/dL High [address] [place] [address] Comment on above: Result Comment: KATARINA GEMENT OF PATIENT CARE PER NURSING PROTOCOL Performed By: #### L 501.080 ####[facility] [address] [place], [address] FINGERSTICK GLU 361 mg/dL High [address] [place] [address] Comment on above: Result Comment: KATARINA GEMENT OF PATIENT CARE PER NURSING PROTOCOL Performed By: #### L 501.080 ####[facility] [address] [place], [address] FINGERSTICK GLU 338 mg/dL High [address] [place] [address] Comment on above: Result Comment: KATARINA GEMENT OF PATIENT CARE PER NURSING PROTOCOL Performed By: #### L 501.080 ####[facility] [address] [place], [address] Bilirubin Test strip Ql (U)O rdered By: Jeevan Yoder on 01-20-2025 Bilirubin Ql (U) Negative Negative [facility] Bilirubin, totalOrdered By: Jeevan Yoder on 01-20-2025 Bilirubin [Mass/Vol] 0.26 mg/dL 0.00-1.30 [facility] Blood Gases by CPSon 025 BARON TEST Positive Normal [facility] Comment on above: Performed By: #### L 9000.0800 ####[facility] [address] [place], [address] Base excess Calc (Bld) [Moles/Vol] 10 mmol/L High -2 to +2 [facility] Comment on above: Performed By: #### L 9000.0800 ####[facility] [address] [place], [address] Blood Gas Type ART Normal [facility] Comment on above: Performed By: #### L 9000.0800 ####[facility] [address] [place], [address] CO2 [Moles/Vol] 37 mmol/L Normal [facility] Comment on above: Performed By: #### L 9000.0800 ####[facility] [address] [place], [address] FI02 30.0 Normal [facility] Comment on above: Performed By: #### L 9000.0800 ####[facility] [address] [place], [address] HCO3 (Bld) [Moles/Vol] 35.5 mmol/L High 22-26 [facility] Comment on above: Performed By: #### L 9000.0800 ####[facility] [address] [place], [address] Normal [facility] Comment on above: Performed By: #### L 9000.0800 ####[facility] [address] [place], [address] O2 Delivery Dev BiPAP Normal [facility] Comment on above: Performed By: #### L 9000.0800 ####[facility] [address] [place], [address] pCO2 59.4 mmHg High 35-45 [facility] Comment on above: Performed By: #### L 9000.0800 ####[facility] [address] [place], [address] PEEP 8 Normal [facility] Comment on above: Performed By: #### L 9000.0800 ####[facility] [address] [place], [address] pH (Bld) 7.38 [pH] Normal 7.35-7.45 [facility] Comment on above: Performed By: #### L 9000.0800 ####[facility] [address] [place], [address] PO2 21 mmHG Invalid Interpretation Code 75-100 [facility] Comment on above: Performed By: #### L 9000.0800 ####[facility] [address] [place], [address] Read Back By Yes Normal [facility] Comment on above: Performed By: #### L 9000.0800 ####[facility] [address] [place], [address] Results To tereletsky Normal [facility] Comment on above: Performed By: #### L 9000.0800 ####[facility] [address] [place], [address] RR 14 Normal [facility] Comment on above: Performed By: #### L 9000.0800 ####[facility] [address] [place], [address] SITE R Radial Normal [facility] Comment on above: Performed By: #### L 8999.0800 ####[facility] [address] [place], [address] SO2 32 Low 95-99 [facility] Comment on above: Performed By: #### L 8999.08 ####[facility] [address] [place], [address] Time Given 16:55:40 Normal [facility] Comment on above: Performed By: #### L 8999.08 ####[facility] [address] [place], [address] Vt 500.0 mL Normal [facility] Comment on above: Performed By: #### L 8999.08 ####[facility] [address] [place], [address] BARON TEST Positive Normal [facility] Comment on above: Performed By: #### L 8999.0800 ####[facility] [address] [place], [address] Base excess Calc (Bld) [Moles/Vol] 5 mmol/L High -2 to +2 [facility] Comment on above: Performed By: #### L 8999.08 ####[facility] [address] [place], [address] Blood Gas Type ART Normal [facility] Comment on above: Performed By: #### L 8999.08 ####[facility] [address] [place], [address] CO2 [Moles/Vol] 33 mmol/L Normal [facility] Comment on above: Performed By: #### L 8999.0800 ####[facility] [address] [place], [address] FI02 30.0 Normal [facility] Comment on above: Performed By: #### L 8999.0800 ####[facility] [address] [place], [address] HCO3 (Bld) [Moles/Vol] 30.8 mmol/L High 22-26 [facility] Comment on above: Performed By: #### L 8999.0800 ####[facility] [address] [place], [address] Mode Not entered Normal [facility] Comment on above: Performed By: #### L 9000.0800 ####[facility] [address] [place], [address] O2 Delivery Dev BiPAP Normal [facility] Comment on above: Performed By: #### L 9000.0800 ####[facility] [address] [place], [address] pCO2 56.2 mmHg High 35-45 [facility] Comment on above: Performed By: #### L 9000.0800 ####[facility] [address] [place], [address] PEEP 8 Normal [facility] Comment on above: Performed By: #### L 9000.0800 ####[facility] [address] [place], [address] pH (Bld) 7.35 [pH] Normal 7.35-7.45 [facility] Comment on above: Performed By: #### L 9000.0800 ####[facility] [address] [place], [address] PO2 37 mmHG Invalid Interpretation Code 75-100 [facility] Comment on above: Performed By: #### L 9000.0800 ####[facility] [address] [place], [address] Read Back By Yes Normal [facility] Comment on above: Performed By: #### L 0.0800 ####[facility] [address] [place], [address] RR 14 Normal [facility] Comment on above: Performed By: #### L 9000.0800 ####[facility] [address] [place], [address] SITE R Radial Normal [facility] Comment on above: Performed By: #### L 9000.0800 ####[facility] [address] [place], [address] SO2 66 Low 95-99 [facility] Comment on above: Performed By: #### L 9000.0800 ####[facility] [address] [place], [address] Vt 500.0 mL Normal [facility] Comment on above: Performed By: #### L 9000.0800 ####[facility] [address] [place], [address] BARON TEST Positive Normal [facility] Comment on above: Performed By: #### L 9000.0800 ####[facility] [address] [place], [address] Base excess Calc (Bld) [Moles/Vol] 5 mmol/L High -2 to +2 [facility] Comment on above: Performed By: #### L 9000.0800 ####[facility] [address] [place], [address] Blood Gas Type ART Normal [facility] Comment on above: Performed By: #### L 9000.0800 ####[facility] [address] [place], [address] CO2 [Moles/Vol] 34 mmol/L Normal [facility] Comment on above: Performed By: #### L 9000.0800 ####[facility] [address] [place], [address] Comment Normal [facility] Comment on above: Result Comment: AVAP S 500vt 14rr 100% +8 maxP=26 minP=18 Performed By: #### L 9000.0800 ####[facility] [address] [place], [address] FI02 100.0 Normal [facility] Comment on above: Performed By: #### L 0.0800 ####[facility] [address] [place], [address] HCO3 (Bld) [Moles/Vol] 31.6 mmol/L High 22-26 [facility] Comment on above: Performed By: #### L 0.0800 ####[facility] [address] [place], [address] Mode Not entered Normal [facility] Comment on above: Performed By: #### L 0.0800 ####[facility] [address] [place], [address] O2 Delivery Dev BiPAP Normal [facility] Comment on above: Performed By: #### L 9000.0800 ####[facility] [address] [place], [address] pCO2 63.0 mmHg High 35-45 [facility] Comment on above: Performed By: #### L 9000.0800 ####[facility] [address] [place], [address] pH (Bld) 7.31 [pH] Low 7.35-7.45 [facility] Comment on above: Performed By: #### L 0.0800 ####[facility] [address] [place], [address] PO2 83 mmHG Normal 75-100 [facility] Comment on above: Performed By: #### L 0.0800 ####[facility] [address] [place], [address] SITE R Radial Normal [facility] Comment on above: Performed By: #### L 9000.0800 ####[facility] [address] [place], [address] SO2 95 Normal 95-99 [facility] Comment on above: Performed By: #### L 9000.0800 ####[facility] [address] [place], [address] Blood base excess determinat ionOrdered By: Lucio Borden on 01-20-2025 Base excess Calc (BldV) [Moles/Vol] 10 mmol/L High -2-2 [facility] Blood bicarbonate measuremen tOrdered By: Lucio Borden on 01-20-2025 HCO3 (Bld) [Moles/Vol] 35.5 mmol/L High 22-26 [facility] Blood cultureOrdered By: Mikey Marie on 01-20-2025 Bacteria identified Cx Nom (Bld) No growth in 5 days. [facility] Blood cultureOrdered By: Maeve Yoder on 01-20-2025 Bacteria identified Cx Nom (Bld) No growth in 5 days. [facility] Bacteria identified Cx Nom (Bld) No growth in 5 days. [facility] CBC W/Diff, Automatedon 12-30 Absolute Lymph 4.62 X10 3/uL High 0.83-4.51 [facility] Comment on above: Performed By: #### L 300.3900, L501.4021, L503.6005, L500.4050, L300.4310, L100.0100, M200.1000 ####[facility] [address] [place], [address] Absolute Neut 8.4 X10 3/uL High 2.0-7.7 [facility] Comment on above: Performed By: #### L 300.3900, L501.4021, L503.6005, L500.4050, L300.4310, L100.0100, M200.1000 ####[facility] [address] [place], [address] Basophils/100 WBC (Bld) 0.6 % Normal 0-1 [facility] Comment on above: Performed By: #### L 300.3900, L501.4021, L503.6005, L500.4050, L300.4310, L100.0100, M200.1000 ####[facility] [address] [place], [address] Eosinophils/100 WBC (Bld) 0.8 % Normal 0-5 [facility] Comment on above: Performed By: #### L 300.3900, L501.4021, L503.6005, L500.4050, L300.4310, L100.0100, M200.1000 ####[facility] [address] [place], [address] Erythrocyte distribution width (RBC) [Ratio] 16.0 % High 11.6-14.6 [facility] Comment on above: Performed By: #### L 300.3900, L501.4021, L503.6005, L500.4050, L300.4310, L100.0100, M200.1000 ####[facility] [address] [place], [address] Hematocrit (Bld) [Volume fraction] 39.6 % Normal 37-47 [facility] Comment on above: Performed By: #### L 300.3900, L501.4021, L503.6005, L500.4050, L300.4310, L100.0100, M200.1000 ####[facility] [address] [place], [address] Hemoglobin (Bld) [Mass/Vol] 12.1 g/dL Normal 12.0-15.0 [facility] Comment on above: Performed By: #### L 300.3900, L501.4021, L503.6005, L500.4050, L300.4310, L100.0100, M200.1000 ####[facility] [address] [place], [address] IG% 0.500 Normal 0.0-0.9 [facility] Comment on above: Result Comment: IG% - Immature Granulocytes (promyelocytes, myelocytes andmetamyelocytes) > 1% indicates that a LEFT SHIFT is Present. Performed By: #### L 300.3900, L501.4021, L503.6005, L500.4050, L300.4310, L100.0100, M200.1000 ####[facility] [address] [place], [address] Lymphocytes/100 WBC (Bld) 32.0 % Normal 19-41 [facility] Comment on above: Performed By: #### L 300.3900, L501.4021, L503.6005, L500.4050, L300.4310, L100.0100, M200.1000 ####[facility] [address] [place], [address] MCH (RBC) [Entitic mass] 27.4 pg Normal 27.0-32.0 [facility] Comment on above: Performed By: #### L 300.3900, L501.4021, L503.6005, L500.4050, L300.4310, L100.0100, M200.1000 ####[facility] [address] [place], [address] MCHC (RBC) [Mass/Vol] 30.6 g/dL Low 32-36 [facility] Comment on above: Performed By: #### L 300.3900, L501.4021, L503.6005, L500.4050, L300.4310, L100.0100, M200.1000 ####[facility] [address] [place], [address] MCV (RBC) [Entitic vol] 89.8 fL Normal 81-99 [facility] Comment on above: Performed By: #### L 300.3900, L501.4021, L503.6005, L500.4050, L300.4310, L100.0100, M200.1000 ####[facility] [address] [place], [address] Monocytes/100 WBC (Bld) 7.7 % Normal 0-10 [facility] Comment on above: Performed By: #### L 300.3900, L501.4021, L503.6005, L500.4050, L300.4310, L100.0100, M200.1000 ####[facility] [address] [place], [address] Neutrophils/100 WBC (Bld) 58.4 % Normal 47-70 [facility] Comment on above: Performed By: #### L 300.3900, L501.4021, L503.6005, L500.4050, L300.4310, L100.0100, M200.1000 ####[facility] [address] [place], [address] Nucleated RBC (Bld) [#/Vol] 0 10*3/uL Normal 0-5 [facility] Comment on above: Performed By: #### L 300.3900, L501.4021, L503.6005, L500.4050, L300.4310, L100.0100, M200.1000 ####[facility] [address] [place], [address] Platelet mean volume (Bld) [Entitic vol] 12.0 fL Normal 6.2-12.0 [facility] Comment on above: Performed By: #### L 300.3900, L501.4021, L503.6005, L500.4050, L300.4310, L100.0100, M200.1000 ####[facility] [address] [place], [address] Platelets (Bld) [#/Vol] 287 10*3/uL Normal 150-450 [facility] Comment on above: Performed By: #### L 300.3900, L501.4021, L503.6005, L500.4050, L300.4310, L100.0100, M200.1000 ####[facility] [address] [place], [address] RBC (Bld) [#/Vol] 4.41 10*6/uL Normal 4.2-5.4 [facility] Comment on above: Performed By: #### L 300.3900, L501.4021, L503.6005, L500.4050, L300.4310, L100.0100, M200.1000 ####[facility] [address] [place], [address] RDW SD 52.7 fl High 35.1-43.9 [facility] Comment on above: Performed By: #### L 300.3900, L501.4021, L503.6005, L500.4050, L300.4310, L100.0100, M200.1000 ####[facility] [address] [place], [address] WBC (Bld) [#/Vol] 14.4 10*3/uL High 4.4-11.0 [facility] Comment on above: Performed By: #### L 300.3900, L501.4021, L503.6005, L500.4050, L300.4310, L100.0100, M200.1000 ####[facility] [address] [place], [address] CTA Chest W/WO Contraston CTA Chest W/WO Contrast Normal [facility] Calculated very low density lipoprotein (VLDL) cholesterol measurementOrdered By: Sandeep Marie on 01-20-2025 Calculated very low density lipoprotein (VLDL) cholesterol measurement 12 mg/dL 5-40 [facility] Comprehensive Metabolic Prof ilon 01-20-2025 Albumin [Mass/Vol] 3.6 g/dL Normal 3.4-4.8 [facility] Comment on above: Performed By: #### L 300.3900, L501.4021, L503.6005, L500.4050, L300.4310, L100.0100, M200.1000 ####[facility] [address] [place], [address] Albumin/Globulin [Mass ratio] 0.9 {ratio} Normal 0.9-2.4 [facility] Comment on above: Performed By: #### L 300.3900, L501.4021, L503.6005, L500.4050, L300.4310, L100.0100, M200.1000 ####[facility] [address] [place], [address] ALK PHOS 143 U/L High 35-104 [facility] Comment on above: Performed By: #### L 300.3900, L501.4021, L503.6005, L500.4050, L300.4310, L100.0100, M200.1000 ####[facility] [address] [place], [address] ALT [Catalytic activity/Vol] 36 U/L High <=34 [facility] Comment on above: Performed By: #### L 300.3900, L501.4021, L503.6005, L500.4050, L300.4310, L100.0100, M200.1000 ####[facility] [address] [place], [address] AST [Catalytic activity/Vol] 81 U/L High <=31 [facility] Comment on above: Result Comment: Hemo lysis present, Results??could be affected.?? Performed By: #### L 300.3900, L501.4021, L503.6005, L500.4050, L300.4310, L100.0100, M200.1000 ####[facility] [address] [place], [address] Bilirubin [Mass/Vol] 0.26 mg/dL Normal 0.00-1.30 [facility] Comment on above: Performed By: #### L 300.3900, L501.4021, L503.6005, L500.4050, L300.4310, L100.0100, M200.1000 ####[facility] [address] [place], [address] BUN/CRE 8.1 RATIO Low 10-20 [facility] Comment on above: Performed By: #### L 300.3900, L501.4021, L503.6005, L500.4050, L300.4310, L100.0100, M200.1000 ####[facility] [address] [place], [address] Calcium [Mass/Vol] 10.2 mg/dL Normal 7.6-11.0 [facility] Comment on above: Performed By: #### L 300.3900, L501.4021, L503.6005, L500.4050, L300.4310, L100.0100, M200.1000 ####[facility] [address] [place], [address] Chloride [Moles/Vol] 97 mmol/L Low 98-108 [facility] Comment on above: Performed By: #### L 300.3900, L501.4021, L503.6005, L500.4050, L300.4310, L100.0100, M200.1000 ####[facility] [address] [place], [address] CO2 [Moles/Vol] 25.7 mmol/L Normal 21.0-32.0 [facility] Comment on above: Performed By: #### L 300.3900, L501.4021, L503.6005, L500.4050, L300.4310, L100.0100, M200.1000 ####[facility] [address] [place], [address] Creatinine [Mass/Vol] 1.24 mg/dL High 0.70-1.20 [facility] Comment on above: Performed By: #### L 300.3900, L501.4021, L503.6005, L500.4050, L300.4310, L100.0100, M200.1000 ####[facility] [address] [place], [address] ECRCL 34.84 ml/min Low 50-250 [facility] Comment on above: Performed By: #### L 300.3900, L501.4021, L503.6005, L500.4050, L300.4310, L100.0100, M200.1000 ####[facility] [address] [place], [address] GAP 15 Normal 5-15 [facility] Comment on above: Performed By: #### L 300.3900, L501.4021, L503.6005, L500.4050, L300.4310, L100.0100, M200.1000 ####[facility] [address] [place], [address] GFR/1.73 sq M.predicted among non-blacks MDRD (S/P/Bld) [Vol rate/Area] 44 mL/min/{1.73_m2} Low >60 [facility] Comment on above: Result Comment: mL/m in/1.73m2 CKD-EPI Creatinine Equation (2020) Performed By: #### L 300.3900, L501.4021, L503.6005, L500.4050, L300.4310, L100.0100, M200.1000 ####[facility] [address] [place], [address] Globulin (S) [Mass/Vol] 4.1 g/dL Normal 2.2-4.2 [facility] Comment on above: Performed By: #### L 300.3900, L501.4021, L503.6005, L500.4050, L300.4310, L100.0100, M200.1000 ####[facility] [address] [place], [address] Glucose [Mass/Vol] 347 mg/dL High 70-99 [facility] Comment on above: Performed By: #### L 300.3900, L501.4021, L503.6005, L500.4050, L300.4310, L100.0100, M200.1000 ####[facility] [address] [place], [address] Potassium [Moles/Vol] 4.0 mmol/L Normal 3.3-5.1 [facility] Comment on above: Result Comment: Hemo lysis present, Results??could be affected.?? Performed By: #### L 300.3900, L501.4021, L503.6005, L500.4050, L300.4310, L100.0100, M200.1000 ####[facility] [address] [place], [address] Sodium [Moles/Vol] 137 mmol/L Normal 133-145 [facility] Comment on above: Performed By: #### L 300.3900, L501.4021, L503.6005, L500.4050, L300.4310, L100.0100, M200.1000 ####[facility] [address] [place], [address] T PROT 7.6 g/dL Normal 5.9-8.4 [facility] Comment on above: Performed By: #### L 300.3900, L501.4021, L503.6005, L500.4050, L300.4310, L100.0100, M200.1000 ####[facility] [address] [place], [address] Urea nitrogen [Mass/Vol] 10 mg/dL Normal 4-19 [facility] Comment on above: Performed By: #### L 300.3900, L501.4021, L503.6005, L500.4050, L300.4310, L100.0100, M200.1000 ####[facility] [address] [place], [address] Echo Completeon 01-20-2025 Echo Complete Normal [facility] Echocardiogram study reportO rdered By: Marcelina Soto on 01-20-2025 Study report [facility] Work Phone: Emergency Department Summary on 01-20-2025 Emergency Department Summary Normal [facility] H AND P Exam - Hospitaliston 01-20-2025 H&P Exam - Hospitalist Normal [facility] Hemoglobin A1con 01-20-2025 HbA1c (Bld) [Mass fraction] 10.6 % High <=5.6 [facility] Comment on above: Result Comment: Norm al < 5.7 % Prediabetic 5.7 - 6.4 % Diabetic >or= 6.5 % Please note range changes. Performed By: #### L 501.9985 ####[facility] [address] [place], [address] Hemoglobin A1c percentageOrd ered By: Sandeep Marie on 01-20-2025 HbA1c (Bld) [Mass fraction] 10.6 % High <5.7 [facility] Ketones Test strip Ql (U)Ord ered By: Jeevan Yoder on 01-20-2025 Ketones Ql (U) Negative Negative [facility] L499.0042on 01-20-2025 Trop T High Sen 71 ng/L Invalid Interpretation Code <=14 [facility] Comment on above: Result Comment: Crit ical Result(s) Called at:0237 by: EMA PATEL.??Results read back by same. Performed By: #### L 499.0042 ####[facility] [address] [place], [address] L499.0043on 01-20-2025 Trop T High Sen 94 ng/L Invalid Interpretation Code <=14 [facility] Comment on above: Order Comment: PT SUAREZ S NOT MADE IT TO ROOM YET FROM ER OF 409 Result Comment: Crit ical Result(s) Called at 0548: by: SHARONA ALVAREZ. ??Results read back by same. Performed By: #### L 499.0043 ####[facility] [address] [place], [address] L501.4021on 01-20-2025 Trop T High Sen 52 ng/L High <=14 [facility] Comment on above: Performed By: #### L 300.3900, L501.4021, L503.6005, L500.4050, L300.4310, L100.0100, M200.1000 ####[facility] [address] [place], [address] L503.7505on 01-20-2025 Natriuretic peptide B (Bld) [Mass/Vol] 9449 pg/mL High <=1800 [facility] Comment on above: Result Comment: Hear t Failure Unlikely: < 300 pg/mLHeart Failure Likely< 50 Years: > 450 pg/mL50-75 Years: > 900 pg/mL>75 Years: > 1800 pg/mL Performed By: #### L 503.7505, L500.4100, L501.9520 ####[facility] [address] [place], [address] LDL calc ser/plasOrdered By: Sandeep Marie on 01-20-2025 Cholesterol in LDL [Mass/Vol] 79 mg/dL [facility] Lactic Acidon 01-20-2025 Lactate [Moles/Vol] 1.7 mmol/L Normal 0.0-2.0 [facility] Comment on above: Performed By: #### L 503.6005 ####[facility] [address] [place], [address] Lactate [Moles/Vol] 2.0 mmol/L Normal 0.0-2.0 [facility] Comment on above: Order Comment: Comme nts: if result >2, system reflex orders 2nd test @ 4hrsY Result Comment: Crit ical Result(s) Called at 0615: by: SHARONA ALVAREZ. ??Results read back by same. Performed By: #### M 200.1000, L503.6005 ####[facility] [address] [place], [address] Lactate [Moles/Vol] 3.4 mmol/L Invalid Interpretation Code 0.0-2.0 [facility] Comment on above: Order Comment: Y Result Comment: Crit ical Result(s) Called at: 0116 by: [facility].??Results read back by same. Performed By: #### L 300.3900, L501.4021, L503.6005, L500.4050, L300.4310, L100.0100, M200.1000 ####[facility] [address] [place], [address] Legionella Antigen Urineon 0 01-20-2025 LEGU Normal [facility] Comment on above: Performed By: #### M 300.4600, M300.4500 ####[facility] [address] [place], [address] Lipid Profileon 01-20-2025 CHOL:HDL 2.89 Normal [facility] Comment on above: Performed By: #### L 503.7505, L500.4100, L501.9520 ####[facility] [address] [place], [address] Cholesterol [Mass/Vol] 140 mg/dL Normal <=200 [facility] Comment on above: Result Comment: Chol esterol level, Desirable <200 mg/dLBorderline high cholesterol 200-239 mg/dLHigh cholesterol >=240 mg/dLRecommendations of the NCEP Adult Treatment Panel for thefollowing risk-cutoff thresholds for the [place] [facility]. Performed By: #### L 503.7505, L500.4100, L501.9520 ####[facility] [address] [place], [address] Cholesterol in HDL [Mass/Vol] 49 mg/dL Normal [facility] Comment on above: Result Comment: Camelia onal Cholesterol Education Program (NCEP) guidelines:<40 mg/dL: Low HDL-cholesterol (major risk factor for CHD)>= 60 mg/dL: High HDL-cholesterol (negative risk factor forCHD)HDL-cholesterol is affected by a number of factors, e.g.smoking, exercise, hormones, sex and age. Performed By: #### L 503.7505, L500.4100, L501.9520 ####[facility] [address] [place], [address] Cholesterol in LDL [Mass/Vol] 79 mg/dL Normal [facility] Comment on above: Result Comment: Bord manhup=357-768 mg/dL Higher Qsiu=001 mg/dL or greater Performed By: #### L 503.7505, L500.4100, L501.9520 ####[facility] [address] [place], [address] Cholesterol in VLDL [Mass/Vol] 12 mg/dL Normal 5-40 [facility] Comment on above: Performed By: #### L 503.7505, L500.4100, L501.9520 ####[facility] [address] [place], [address] Triglyceride [Mass/Vol] 62 mg/dL Normal [facility] Comment on above: Result Comment: The drugs N-Acetylcysteine and Metamizole may falselydepress this assay.Normal range: <150 mg/dLBorderline High: 150-199 mg/dLHigh: 200-499 mg/dLVery High: >500 mg/dL Performed By: #### L 503.7505, L500.4100, L501.9520 ####[facility] [address] [place], [place], [address] Measurement, pHOrdered By: Connor Borden on 01-20-2025 pH (Unsp spec) 7.38 [pH] 7.35-7.45 [facility] Mucus LM Ql (Urine sed)Order ed By: Jeevan Yoder on 01-20-2025 Mucus Ql (Urine sed) 0 SEEN /hpf [facility] Nitrite Test strip Ql (U)Ord ered By: Jeevan Yoder on 01-20-2025 Nitrite Ql (U) Negative Negative [facility] No Panel InformationOrdered By: Lucio Borden on 01-20-2025 ART [facility] R Radial [facility] ST [facility] BiPAP [facility] 500.0 mL [facility] 14 [facility] 8 [facility] 16:55:40 [facility] Yes [facility] No Panel InformationOrdered By: Jeevan Yoder on 01-20-2025 See comment [facility] 81 U/L High <32 [facility] Partial Thromboplast Timeon 01-20-2025 aPTT Coag (Bld) [Time] 26.9 s Normal 24.1-36.2 [facility] Comment on above: Performed By: #### L 300.3900, L501.4021, L503.6005, L500.4050, L300.4310, L100.0100, M200.1000 ####[facility] [address] [place], [place], [id number] Protein Test strip Ql (U)Ord ered By: Jeevan Yoder on 01-20-2025 Protein Ql (U) 100 mg/dl High Negative [facility] Prothrombin Time w/INRon INR Coag (PPP) [Relative time] 1.1 {INR} Normal [facility] Comment on above: Performed By: #### L 300.3900, L501.4021, L503.6005, L500.4050, L300.4310, L100.0100, M200.1000 ####[facility] [address] [place], [address] PT Coag (PPP) [Time] 14.6 s Normal 11.7-14.9 [facility] Comment on above: Performed By: #### L 300.3900, L501.4021, L503.6005, L500.4050, L300.4310, L100.0100, M200.1000 ####[facility] [address] [place], [address] Prothrombin timeOrdered By: Jeevan Yoder on 01-20-2025 PT Coag (PPP) [Time] 14.6 s 11.7-14.9 [facility] RESPIRATORY PANEL MOLECULARo n 01-20-2025 RP PANEL Normal [facility] Comment on above: Performed By: #### M 100.638 ####[facility] [address] [place], [address] Respiratory pathogens detect ion panel by molecular detection methodOrdered By: Sandeep Marie on 01-20-2025 Respiratory pathogens DNA and RNA panel BEBETO+probe (Resp) [facility] Serum globulin measurementOr dered By: Jeevan Yoder on 01-20-2025 Globulin (S) [Mass/Vol] 4.1 g/dL 2.2-4.2 [facility] Serum or plasma alanine kelley otransferase (ALT) measurementOrdered By: Jeevan Yoder on 01-20-2025 ALT [Catalytic activity/Vol] 36 U/L High <35 [facility] Serum or plasma albumin melanie urement (mass/volume)Ordered By: Jeevan Yoder on 01-20-2025 Albumin [Mass/Vol] 3.6 g/dL 3.4-4.8 [facility] Serum or plasma albumin/glob ulin mass ratioOrdered By: Jeevan Yoder on 01-20-2025 Albumin/Globulin [Mass ratio] 0.9 {ratio} 0.9-2.4 [facility] Serum or plasma alkaline lissa sphatase measurementOrdered By: Jeevan Yoder on 01-20-2025 ALP [Catalytic activity/Vol] 143 U/L High 35-104 [facility] Serum or plasma cholesterol in HDL measurement (mass/volume)Ordered By: Sandeep Marie on 01-20-2025 Cholesterol in HDL [Mass/Vol] 49 mg/dL >40 [facility] Serum or plasma cholesterol measurement (mass/volume)Ordered By: Sandeep Marie on 01-20-2025 Cholesterol [Mass/Vol] 140 mg/dL <201 [facility] Squamous epithelial cells de tection in urine sediment by light microscopyOrdered By: Jeevan Yoder on 01-20-2025 Epithelial cells.squamous LM Ql (Urine sed) 5-10 SEEN /hpf 5-10 [facility] Strep pneumoniae Antig(UR,CS F)on 01-20-2025 STPAG Normal [facility] Comment on above: Performed By: #### M 300.4600, M300.4500 ####[facility] [address] [place], [place], [address] TSH DL <= 0.005 mIU/L QnOrde red By: Sandeep Marie on 01-20-2025 TSH Qn 0.492 uIU/mL 0.300-4.200 [facility] Thyroid Stim Hormone (TSH)on 01-20-2025 TSH 0.492 uIU/mL Normal 0.300-4.200 [facility] Comment on above: Performed By: #### L 503.6175, L500.4100, L501.9520 ####[facility] [address] [place], [place], [id number] Total carbon dioxide measure mentOrdered By: Lucio Borden on 01-20-2025 CO2 [Moles/Vol] 37 mmol/L [facility] Total proteinOrdered By: Maeve Yoder on 01-20-2025 Protein [Mass/Vol] 7.6 g/dL 5.9-8.4 [facility] Troponin T.cardiac [Mass/vol ume] in Serum or Plasma by High sensitivity methodOrdered By: Jeevan Yoder on 01-20-2025 Troponin T.cardiac High sensitivity method [Mass/Vol] 94 ng/L High <14 [facility] Troponin T.cardiac High sensitivity method [Mass/Vol] 71 ng/L High <14 [facility] Troponin T.cardiac High sensitivity method [Mass/Vol] 52 ng/L High <14 [facility] Urinalysis, Completeon 01-20 EPI,SQUAMOUS 5-10 SEEN Normal 5-10 [facility] Comment on above: Order Comment: MARSHALL CTOR TO SPECIFY Performed By: #### L 400.0001 ####[facility] [address] [facility] [address] RBC 5-10 SEEN Normal 0-5 [facility] Comment on above: Order Comment: MARSHALL CTOR TO SPECIFY Performed By: #### L 400.0001 ####[facility] [address] [place], [address] WBC 0-5 SEEN Normal 0-5 [facility] Comment on above: Order Comment: MARSHALL CTOR TO SPECIFY Performed By: #### L 400.0001 ####[facility] [address] [facility] [address] BACTERIA 0 SEEN Normal None Seen [facility] Comment on above: Order Comment: MARSHALL CTOR TO SPECIFY Performed By: #### L 400.0001 ####[facility] [address] [place], [address] Mucus Ql (Urine sed) 0 SEEN Normal [facility] Comment on above: Order Comment: MARSHALL CTOR TO SPECIFY Performed By: #### L 400.0001 ####[facility] [address] [place], [place], [id number] Urine Legionella pneumophila antigen detectionOrdered By: Sandeep Marie on 01-20-2025 L. pneumophila Ag Ql (U) [facility] Urine clarityOrdered By: Maeve Yoder on 01-20-2025 Clarity (U) Clear Clear [facility] Urine color determinationOrd ered By: Jeevan Yoder on 01-20-2025 Color (U) Straw Yellow [facility] Urine cultureOrdered By: Maeve Yoder on 01-20-2025 Bacteria identified Cx Nom (U) Proteus mirabilis Abnormal [facility] Urine glucose detectionOrder ed By: Jeevan Yoder on 01-20-2025 Glucose Ql (U) 1000 mg/dl High Normal [facility] Urine leukocyte esterase det ection by dipstickOrdered By: Jeevan Yoder on 01-20-2025 Leukocyte esterase Test strip Ql (U) Negative Negative [facility] Urine pHOrdered By: Jeevan rai on 01-20-2025 pH (U) 6.0 [pH] 5.0 - 8.0 [facility] Urine sediment bacteria coun t by microscopy (number/high power field)Ordered By: Jeevan Yoder on 01-20-2025 Bacteria LM.HPF (Urine sed) [#/Area] 0 /[HPF] None Seen [facility] Urine specific gravity measu rementOrdered By: Jeevan Yoder on 01-20-2025 Specific gravity (U) [Rel density] 1.010 1.002-1.030 [facility] Urine urobilinogen measureme ntOrdered By: Jeevan Yoder on 01-20-2025 Urobilinogen Ql (U) Normal mg/dl Normal [facility] White blood cell countOrdere d By: Jeevan Yoder on 01-20-2025 White blood cell count 0-5 SEEN /hpf 0-5 [facility] Anion gap in Serum or Plasma Ordered By: Ramone Smiley on 01-19-2025 Anion gap [Moles/Vol] 14 mmol/L 5-15 [facility] BUN/creatinine ratioOrdered By: Ramone Smiley on 01-19-2025 Urea nitrogen/Creatinine [Mass ratio] 7.7 mg/mg Low 10-20 [facility] Bilirubin, totalOrdered By: Ramone Smiley on 01-19-2025 Bilirubin [Mass/Vol] 0.25 mg/dL 0.00-1.30 [facility] CBC-Complete Blood Cnt No Di ffon 01-19-2025 Erythrocyte distribution width (RBC) [Ratio] 16.0 % High 11.6-14.6 [facility] Comment on above: Order Comment: Order Date: 01/19/25Order Info: [id number] - CBC Performed By: #### L 500.4050, L501.5200, L100.0500 ####[facility] [address] [place], [address] Hematocrit (Bld) [Volume fraction] 35.3 % Low 37-47 [facility] Comment on above: Order Comment: Order Date: 01/19/25Order Info: [id number] - CBC Performed By: #### L 500.4050, L501.5200, L100.0500 ####[facility] [address] [place], [address] Hemoglobin (Bld) [Mass/Vol] 10.9 g/dL Low 12.0-15.0 [facility] Comment on above: Order Comment: Order Date: 01/19/25Order Info: [id number] - CBC Performed By: #### L 500.4050, L501.5200, L100.0500 ####[facility] [address] [place], [address] MCH (RBC) [Entitic mass] 27.7 pg Normal 27.0-32.0 [facility] Comment on above: Order Comment: Order Date: 01/19/25Order Info: [id number] - CBC Performed By: #### L 500.4050, L501.5200, L100.0500 ####[facility] [address] [place], [address] MCHC (RBC) [Mass/Vol] 30.9 g/dL Low 32-36 [facility] Comment on above: Order Comment: Order Date: 01/19/25Order Info: [id number] - CBC Performed By: #### L 500.4050, L501.5200, L100.0500 ####[facility] [address] [place], [address] MCV (RBC) [Entitic vol] 89.6 fL Normal 81-99 [facility] Comment on above: Order Comment: Order Date: 01/19/25Order Info: [id number] - CBC Performed By: #### L 500.4050, L501.5200, L100.0500 ####[facility] [address] [place], [address] Platelet mean volume (Bld) [Entitic vol] 11.6 fL Normal 6.2-12.0 [facility] Comment on above: Order Comment: Order Date: 01/19/25Order Info: [id number] - CBC Performed By: #### L 500.4050, L501.5200, L100.0500 ####[facility] [address] [place], [address] Platelets (Bld) [#/Vol] 253 10*3/uL Normal 150-450 [facility] Comment on above: Order Comment: Order Date: 01/19/25Order Info: [id number] - CBC Performed By: #### L 500.4050, L501.5200, L100.0500 ####[facility] [address] [place], [address] RBC (Bld) [#/Vol] 3.94 10*6/uL Low 4.2-5.4 [facility] Comment on above: Order Comment: Order Date: 01/19/25Order Info: [id number] - CBC Performed By: #### L 500.4050, L501.5200, L100.0500 ####[facility] [address] [place], [address] RDW SD 52.7 fl High 35.1-43.9 [facility] Comment on above: Order Comment: Order Date: 01/19/25Order Info: [id number] - CBC Performed By: #### L 500.4050, L501.5200, L100.0500 ####[facility] [address] [place], [address] WBC (Bld) [#/Vol] 8.3 10*3/uL Normal 4.4-11.0 [facility] Comment on above: Order Comment: Order Date: 01/19/25Order Info: [id number] - CBC Performed By: #### L 500.4050, L501.5200, L100.0500 ####[facility] [address] [place], [address] Carbon dioxide, total [Moles /volume] in Central venous bloodOrdered By: Ramone Smiley on 01-19-2025 CO2 [Moles/Vol] 27.2 mmol/L 21.0-32.0 [facility] Chloride assayOrdered By: Richar Smiley on 01-19-2025 Chloride [Moles/Vol] 96 mmol/L Low 98-108 [facility] Comprehensive Metabolic Prof ilon 01-19-2025 Albumin [Mass/Vol] 3.4 g/dL Normal 3.4-4.8 [facility] Comment on above: Order Comment: Order Date: 01/19/25Order Info: [id number] - CMPOrder Info: [id number] - MG Performed By: #### L 500.4050, L501.5200, L100.0500 ####[facility] [address] [place], [address] Albumin/Globulin [Mass ratio] 0.9 {ratio} Normal 0.9-2.4 [facility] Comment on above: Order Comment: Order Date: 01/19/25Order Info: [id number] - CMPOrder Info: [id number] - MG Performed By: #### L 500.4050, L501.5200, L100.0500 ####[facility] [address] [place], [address] ALK PHOS 123 U/L High 35-104 [facility] Comment on above: Order Comment: Order Date: 01/19/25Order Info: [id number] - CMPOrder Info: [id number] - MG Performed By: #### L 500.4050, L501.5200, L100.0500 ####[facility] [address] [place], [address] ALT [Catalytic activity/Vol] 18 U/L Normal <=34 [facility] Comment on above: Order Comment: Order Date: 01/19/25Order Info: [id number] - CMPOrder Info: [id number] - MG Performed By: #### L 500.4050, L501.5200, L100.0500 ####[facility] [address] [place], [address] AST [Catalytic activity/Vol] 25 U/L Normal <=31 [facility] Comment on above: Order Comment: Order Date: 01/19/25Order Info: [id number] - CMPOrder Info: [id number] - MG Performed By: #### L 500.4050, L501.5200, L100.0500 ####[facility] [address] [place], [address] Bilirubin [Mass/Vol] 0.25 mg/dL Normal 0.00-1.30 [facility] Comment on above: Order Comment: Order Date: 01/19/25Order Info: [id number] - CMPOrder Info: [id number] - MG Performed By: #### L 500.4050, L501.5200, L100.0500 ####[facility] [address] [place], [address] BUN/CRE 7.7 RATIO Low 10-20 [facility] Comment on above: Order Comment: Order Date: 01/19/25Order Info: [id number] - CMPOrder Info: [id number] - MG Performed By: #### L 500.4050, L501.5200, L100.0500 ####[facility] [address] [place], [address] Calcium [Mass/Vol] 10.4 mg/dL Normal 7.6-11.0 [facility] Comment on above: Order Comment: Order Date: 01/19/25Order Info: [id number] - CMPOrder Info: [id number] - MG Performed By: #### L 500.4050, L501.5200, L100.0500 ####[facility] [address] [place], [address] Chloride [Moles/Vol] 96 mmol/L Low 98-108 [facility] Comment on above: Order Comment: Order Date: 01/19/25Order Info: [id number] - CMPOrder Info: [id number] - MG Performed By: #### L 500.4050, L501.5200, L100.0500 ####[facility] [address] [place], [address] CO2 [Moles/Vol] 27.2 mmol/L Normal 21.0-32.0 [facility] Comment on above: Order Comment: Order Date: 01/19/25Order Info: [id number] - CMPOrder Info: [id number] - MG Performed By: #### L 500.4050, L501.5200, L100.0500 ####[facility] [address] [place], [address] Creatinine [Mass/Vol] 1.06 mg/dL Normal 0.70-1.20 [facility] Comment on above: Order Comment: Order Date: 01/19/25Order Info: [id number] - CMPOrder Info: [id number] - MG Performed By: #### L 500.4050, L501.5200, L100.0500 ####[facility] [address] [place], [address] GAP 14 Normal 5-15 [facility] Comment on above: Order Comment: Order Date: 01/19/25Order Info: [id number] - CMPOrder Info: [id number] - MG Performed By: #### L 500.4050, L501.5200, L100.0500 ####[facility] [address] [place], [address] GFR/1.73 sq M.predicted among non-blacks MDRD (S/P/Bld) [Vol rate/Area] 53 mL/min/{1.73_m2} Low >60 [facility] Comment on above: Order Comment: Order Date: 01/19/25Order Info: [id number] - CMPOrder Info: [id number] - MG Result Comment: mL/m in/1.73m2 CKD-EPI Creatinine Equation (2020) Performed By: #### L 500.4050, L501.5200, L100.0500 ####[facility] [address] [place], [address] Globulin (S) [Mass/Vol] 3.9 g/dL Normal 2.2-4.2 [facility] Comment on above: Order Comment: Order Date: 01/19/25Order Info: [id number] - CMPOrder Info: [id number] - MG Performed By: #### L 500.4050, L501.5200, L100.0500 ####[facility] [address] [place], [address] Glucose [Mass/Vol] 288 mg/dL High 70-99 [facility] Comment on above: Order Comment: Order Date: 01/19/25Order Info: [id number] - CMPOrder Info: [id number] - MG Performed By: #### L 500.4050, L501.5200, L100.0500 ####[facility] [address] [place], [address] Potassium [Moles/Vol] 3.3 mmol/L Normal 3.3-5.1 [facility] Comment on above: Order Comment: Order Date: 01/19/25Order Info: [id number] - CMPOrder Info: [id number] - MG Performed By: #### L 500.4050, L501.5200, L100.0500 ####[facility] [address] [place], [address] Sodium [Moles/Vol] 137 mmol/L Normal 133-145 [facility] Comment on above: Order Comment: Order Date: 01/19/25Order Info: [id number] - CMPOrder Info: [id number] - MG Performed By: #### L 500.4050, L501.5200, L100.0500 ####[facility] [address] [place], [address] T PROT 7.3 g/dL Normal 5.9-8.4 [facility] Comment on above: Order Comment: Order Date: 01/19/25Order Info: [id number] - CMPOrder Info: [id number] - MG Performed By: #### L 500.4050, L501.5200, L100.0500 ####[facility] [address] [place], [address] Urea nitrogen [Mass/Vol] 8 mg/dL Normal 4-19 [facility] Comment on above: Order Comment: Order Date: 01/19/25Order Info: [id number] - CMPOrder Info: [id number] - MG Performed By: #### L 500.4050, L501.5200, L100.0500 ####[facility] [address] [place], [address] Erythrocyte distribution wid th ratioOrdered By: Ramone Smiley on 01-19-2025 Erythrocyte distribution width (RBC) [Ratio] 16.0 % High 11.6-14.6 [facility] Erythrocyte distribution wid th standard deviationOrdered By: Ramone Smiley on 01-19-2025 Erythrocyte distribution width (RBC) [Ratio] 52.7 fl High 35.1-43.9 [facility] Glomerular filtration rate ( GFR) estimation/1.73 sq m using serum, plasma, or whole bOrdered By: Ramone Smiley on 01-19-2025 GFR/1.73 sq M.predicted among non-blacks MDRD (S/P/Bld) [Vol rate/Area] 53 mL/min/{1.73_m2} Low >60 [facility] Hematocrit Auto (Bld) [Volum e fraction]Ordered By: Ramone Smiley on 01-19-2025 Hematocrit (Bld) [Volume fraction] 35.3 % Low 37-47 [facility] Hemoglobin measurementOrdere d By: Ramone Smiley on 01-19-2025 Hemoglobin (Bld) [Mass/Vol] 10.9 g/dL Low 12.0-15.0 [facility] L503.7505on 01-19-2025 Natriuretic peptide B (Bld) [Mass/Vol] 3173 pg/mL High <=1800 [facility] Comment on above: Order Comment: Order Date: 01/19/25Order Info: [id number] - CMPOrder Info: [id number] - MG Result Comment: Hear t Failure Unlikely: < 300 pg/mLHeart Failure Likely< 50 Years: > 450 pg/mL50-75 Years: > 900 pg/mL>75 Years: > 1800 pg/mL Performed By: #### L 503.7505 ####[facility] [address] [place], [place], [id number] MCV (mean corpuscular volume ) determinationOrdered By: Ramone Smiley on 01-19-2025 MCV (RBC) [Entitic vol] 89.6 fL 81-99 [facility] Magnesiumon 01-19-2025 Magnesium [Mass/Vol] 2.3 mg/dL High 1.5-2.2 [facility] Comment on above: Order Comment: Order Date: 01/19/25Order Info: [id number] - CMPOrder Info: [id number] - MG Performed By: #### L 500.4050, L501.5200, L100.0500 ####[facility] [address] [place], [place], [address] Magnesium measurement (mass/ volume)Ordered By: Ramone Smiley on 01-19-2025 Magnesium (Unsp spec) [Mass/Vol] 2.3 mg/dL High 1.5-2.2 [facility] Mean corpuscular hemoglobin (MCH) determinationOrdered By: Ramone Smiley on 01-19-2025 MCH (RBC) [Entitic mass] 27.7 pg 27.0-32.0 [facility] Natriuretic peptide.B prohor hayley N-Terminal [Mass/volume] in Serum or PlasmaOrdered By: Ramone Smiley on 01-19-2025 Natriuretic peptide.B prohormone N-Terminal [Mass/Vol] 3173 pg/mL High <1800 [facility] No Panel InformationOrdered By: Ramone Smiley on 01-19-2025 25 U/L <32 [facility] Platelet countOrdered By: Richar Smiley on 01-19-2025 Platelets (Bld) [#/Vol] 253 10*3/uL 150-450 [facility] Potassium measurement (mass/ volume)Ordered By: Ramone Smiley on 01-19-2025 Potassium (Unsp spec) [Mass/Vol] 3.3 mmol/L 3.3-5.1 [facility] RBC Auto (Bld) [#/Vol]Ordere d By: Ramone Smiley on 01-19-2025 RBC (Bld) [#/Vol] 3.94 10*6/uL Low 4.2-5.4 [facility] Serum creatinine measurement (mass/volume)Ordered By: Ramone Smiley on 01-19-2025 Creatinine [Mass/Vol] 1.06 mg/dL 0.70-1.20 [facility] Serum globulin measurementOr dered By: Ramone Smiley on 01-19-2025 Globulin (S) [Mass/Vol] 3.9 g/dL 2.2-4.2 [facility] Serum glucose measurement (m ass/volume)Ordered By: Ramone Smiley on 01-19-2025 Glucose [Mass/Vol] 288 mg/dL High 70-99 [facility] Serum or plasma alanine kelley otransferase (ALT) measurementOrdered By: Ramone Smiley on 01-19-2025 ALT [Catalytic activity/Vol] 18 U/L <35 [facility] Serum or plasma albumin melanie urement (mass/volume)Ordered By: Ramone Smiley on 01-19-2025 Albumin [Mass/Vol] 3.4 g/dL 3.4-4.8 [facility] Serum or plasma albumin/glob ulin mass ratioOrdered By: Ramone Smiley on 01-19-2025 Albumin/Globulin [Mass ratio] 0.9 {ratio} 0.9-2.4 [facility] Serum or plasma alkaline lissa sphatase measurementOrdered By: Ramone Smiley on 01-19-2025 ALP [Catalytic activity/Vol] 123 U/L High 35-104 [facility] Serum or plasma calcium melanie urement (mass/volume)Ordered By: Ramone Smiley on 01-19-2025 Calcium [Mass/Vol] 10.4 mg/dL 7.6-11.0 [facility] Serum or plasma urea nitroge n measurement (mass/volume)Ordered By: Ramone Smiley on 01-19-2025 Urea nitrogen [Mass/Vol] 8 mg/dL 4-19 [facility] Sodium levelOrdered By: Ramone Smiley on 01-19-2025 Sodium [Moles/Vol] 137 mmol/L 133-145 [facility] Total proteinOrdered By: Lilliam Smiley on 01-19-2025 Protein [Mass/Vol] 7.3 g/dL 5.9-8.4 [facility] White blood cell (WBC) count Ordered By: Ramone Smiley on 01-19-2025 WBC (Bld) [#/Vol] 8.3 10*3/uL 4.4-11.0 [facility] 12 Lead EKGon 01-15-2025 12 Lead EKG Normal [facility] Absolute lymphocyte countOrd ered By: Jeevan Yoder on 01-15-2025 Lymphocytes Auto (Unsp spec) [#/Vol] 1.92 10*3/uL 0.83-4.51 [facility] Absolute neutrophil countOrd ered By: Jeevan Yoder on 01-15-2025 Neutrophils (Bld) [#/Vol] 7.7 10*3/uL 2.0-7.7 [facility] Anion gap in Serum or Plasma Ordered By: Jeevan Yoder on 01-15-2025 Anion gap [Moles/Vol] 11 mmol/L 5-15 [facility] Automated lymphocyte count a s percentage of total leukocytesOrdered By: Jeevan Yoder on 01-15-2025 Lymphocytes/100 WBC Auto (Unsp spec) 18.1 % Low - [facility] BUN/creatinine ratioOrdered By: Jeevan Yoder on 01-15-2025 Urea nitrogen/Creatinine [Mass ratio] 16.6 mg/mg - [facility] Basic Metabolic Profile (BMP )on 01-15-2025 BUN/CRE 16.6 RATIO Normal - [facility] Comment on above: Performed By: #### L 500.2500, L501.4021, L100.0100 ####[facility] [address] [place], [address] Calcium [Mass/Vol] 9.6 mg/dL Normal 7.6-11.0 [facility] Comment on above: Performed By: #### L 500.2500, L501.4021, L100.0100 ####[facility] [address] [place], [address] Chloride [Moles/Vol] 102 mmol/L Normal 98-108 [facility] Comment on above: Performed By: #### L 500.2500, L501.4021, L100.0100 ####[facility] [address] [place], [address] CO2 [Moles/Vol] 25.0 mmol/L Normal 21.0-32.0 [facility] Comment on above: Performed By: #### L 500.2500, L501.4021, L100.0100 ####[facility] [address] [place], [address] Creatinine [Mass/Vol] 0.92 mg/dL Normal 0.70-1.20 [facility] Comment on above: Performed By: #### L 500.2500, L501.4021, L100.0100 ####[facility] [address] [place], [address] ECRCL 48.84 ml/min Low 50-250 [facility] Comment on above: Performed By: #### L 500.2500, L501.4021, L100.0100 ####[facility] [address] [place], [address] GAP 11 Normal 5-15 [facility] Comment on above: Performed By: #### L 500.2500, L501.4021, L100.0100 ####[facility] [address] [place], [address] GFR/1.73 sq M.predicted among non-blacks MDRD (S/P/Bld) [Vol rate/Area] 63 mL/min/{1.73_m2} Normal >60 [facility] Comment on above: Result Comment: mL/m in/1.73m2 CKD-EPI Creatinine Equation (2020) Performed By: #### L 500.2500, L501.4021, L100.0100 ####[facility] [address] [place], [address] Glucose [Mass/Vol] 144 mg/dL High 70-99 [facility] Comment on above: Performed By: #### L 500.2500, L501.4021, L100.0100 ####[facility] [address] [place], [address] Potassium [Moles/Vol] 3.7 mmol/L Normal 3.3-5.1 [facility] Comment on above: Performed By: #### L 500.2500, L501.4021, L100.0100 ####[facility] [address] [place], [address] Sodium [Moles/Vol] 138 mmol/L Normal 133-145 [facility] Comment on above: Performed By: #### L 500.2500, L501.4021, L100.0100 ####[facility] [address] [place], [address] Urea nitrogen [Mass/Vol] 15 mg/dL Normal 4-19 [facility] Comment on above: Performed By: #### L 500.2500, L501.4021, L100.0100 ####[facility] [address] [place], [address] Basophil percentageOrdered B y: Jeevan Yoder on 01-15-2025 Basophils/100 WBC (Bld) 0.3 % 0-1 [facility] CBC W/Diff, Automatedon 12-29 Absolute Lymph 1.92 X10 3/uL Normal 0.83-4.51 [facility] Comment on above: Performed By: #### L 500.2500, L501.4021, L100.0100 ####[facility] [address] [place], [address] Absolute Neut 7.7 X10 3/uL Normal 2.0-7.7 [facility] Comment on above: Performed By: #### L 500.2500, L501.4021, L100.0100 ####[facility] [address] [place], [address] Basophils/100 WBC (Bld) 0.3 % Normal 0-1 [facility] Comment on above: Performed By: #### L 500.2500, L501.4021, L100.0100 ####[facility] [address] [place], [address] Eosinophils/100 WBC (Bld) 1.6 % Normal 0-5 [facility] Comment on above: Performed By: #### L 500.2500, L501.4021, L100.0100 ####[facility] [address] [place], [address] Erythrocyte distribution width (RBC) [Ratio] 16.3 % High 11.6-14.6 [facility] Comment on above: Performed By: #### L 500.2500, L501.4021, L100.0100 ####[facility] [address] [place], [address] Hematocrit (Bld) [Volume fraction] 34.3 % Low 37-47 [facility] Comment on above: Performed By: #### L 500.2500, L501.4021, L100.0100 ####[facility] [address] [place], [address] Hemoglobin (Bld) [Mass/Vol] 11.0 g/dL Low 12.0-15.0 [facility] Comment on above: Performed By: #### L 500.2500, L501.4021, L100.0100 ####[facility] [address] [place], [address] IG% 0.400 Normal 0.0-0.9 [facility] Comment on above: Result Comment: IG% - Immature Granulocytes (promyelocytes, myelocytes andmetamyelocytes) > 1% indicates that a LEFT SHIFT is Present. Performed By: #### L 500.2500, L501.4021, L100.0100 ####[facility] [address] [place], [address] Lymphocytes/100 WBC (Bld) 18.1 % Low 19-41 [facility] Comment on above: Performed By: #### L 500.2500, L501.4021, L100.0100 ####[facility] [address] [place], [address] MCH (RBC) [Entitic mass] 27.8 pg Normal 27.0-32.0 [facility] Comment on above: Performed By: #### L 500.2500, L501.4021, L100.0100 ####[facility] [address] [place], [address] MCHC (RBC) [Mass/Vol] 32.1 g/dL Normal 32-36 [facility] Comment on above: Performed By: #### L 500.2500, L501.4021, L100.0100 ####[facility] [address] [place], [address] MCV (RBC) [Entitic vol] 86.6 fL Normal 81-99 [facility] Comment on above: Performed By: #### L 500.2500, L501.4021, L100.0100 ####[facility] [address] [place], [address] Monocytes/100 WBC (Bld) 6.9 % Normal 0-10 [facility] Comment on above: Performed By: #### L 500.2500, L501.4021, L100.0100 ####[facility] [address] [place], [address] Neutrophils/100 WBC (Bld) 72.7 % High 47-70 [facility] Comment on above: Performed By: #### L 500.2500, L501.4021, L100.0100 ####[facility] [address] [place], [address] Nucleated RBC (Bld) [#/Vol] 0 10*3/uL Normal 0-5 [facility] Comment on above: Performed By: #### L 500.2500, L501.4021, L100.0100 ####[facility] [address] [place], [address] Platelet mean volume (Bld) [Entitic vol] 10.5 fL Normal 6.2-12.0 [facility] Comment on above: Performed By: #### L 500.2500, L501.4021, L100.0100 ####[facility] [address] [place], [address] Platelets (Bld) [#/Vol] 256 10*3/uL Normal 150-450 [facility] Comment on above: Performed By: #### L 500.2500, L501.4021, L100.0100 ####[facility] [address] [place], [address] RBC (Bld) [#/Vol] 3.96 10*6/uL Low 4.2-5.4 [facility] Comment on above: Performed By: #### L 500.2500, L501.4021, L100.0100 ####[facility] [address] [place], [address] RDW SD 50.8 fl High 35.1-43.9 [facility] Comment on above: Performed By: #### L 500.2500, L501.4021, L100.0100 ####[facility] [address] [place], [address] WBC (Bld) [#/Vol] 10.6 10*3/uL Normal 4.4-11.0 [facility] Comment on above: Performed By: #### L 500.2500, L501.4021, L100.0100 ####[facility] [address] [place], [address] Carbon dioxide, total [Moles /volume] in Central venous bloodOrdered By: Jeevan Yoder on 01-15-2025 CO2 [Moles/Vol] 25.0 mmol/L 21.0-32.0 [facility] Chest PA and Lateralon 01-15 Chest PA and Lateral Normal [facility] Chloride assayOrdered By: Kenny Yoder on 01-15-2025 Chloride [Moles/Vol] 102 mmol/L 98-108 [facility] Emergency Department Summary on 01-15-2025 Emergency Department Summary Normal [facility] Eosinophil percentageOrdered By: Jeevan Yoder on 01-15-2025 Eosinophils/100 WBC (Bld) 1.6 % 0-5 [facility] Erythrocyte distribution wid th ratioOrdered By: Jeevan Yoder on 01-15-2025 Erythrocyte distribution width (RBC) [Ratio] 16.3 % High 11.6-14.6 [facility] Erythrocyte distribution wid th standard deviationOrdered By: Jeevan Yoder on 01-15-2025 Erythrocyte distribution width (RBC) [Ratio] 50.8 fl High 35.1-43.9 [facility] Glomerular filtration rate ( GFR) estimation/1.73 sq m using serum, plasma, or whole bOrdered By: Jeevan Yoder on 01-15-2025 GFR/1.73 sq M.predicted among non-blacks MDRD (S/P/Bld) [Vol rate/Area] 63 mL/min/{1.73_m2} >60 [facility] Comment on above: mL/min/1.73m2 CKD-EP I Creatinine Equation (2020) Hematocrit Auto (Bld) [Volum e fraction]Ordered By: Jeevan Yoder on 01-15-2025 Hematocrit (Bld) [Volume fraction] 34.3 % Low 37-47 [facility] Hemoglobin measurementOrdere d By: Jeevan Yoder on 01-15-2025 Hemoglobin (Bld) [Mass/Vol] 11.0 g/dL Low 12.0-15.0 [facility] Immature granulocytes/100 WB C Auto (Bld)Ordered By: Jeevan Yoder on 01-15-2025 Immature granulocytes/100 WBC (Bld) 0.400 % 0.0-0.9 [facility] Comment on above: IG% - Immature Granu locytes (promyelocytes, myelocytes and metamyelocytes) > 1% indicates that a LEFT SHIFT is Present. L499.0042on 01-15-2025 Trop T High Sen 46 ng/L High <=14 [facility] Comment on above: Performed By: #### L 499.0042 ####[facility] [address] [place], [place], [address] L499.0043on 01-15-2025 Trop T High Sen Normal <=14 [facility] Comment on above: Result Comment: DEP ED Performed By: #### L 499.0043 ####[facility] [address] [place], [place], [address] L501.4021on 01-15-2025 Trop T High Sen 46 ng/L High <=14 [facility] Comment on above: Performed By: #### L 500.2500, L501.4021, L100.0100 ####[facility] [address] [place], [address] L503.7505on 01-15-2025 Natriuretic peptide B (Bld) [Mass/Vol] 4224 pg/mL High <=1800 [facility] Comment on above: Result Comment: Hear t Failure Unlikely: < 300 pg/mLHeart Failure Likely< 50 Years: > 450 pg/mL50-75 Years: > 900 pg/mL>75 Years: > 1800 pg/mL Performed By: #### L 503.7505 ####[facility] [address] [facility] [address] [place], [place], [address] MCV (mean corpuscular volume ) determinationOrdered By: Jeevan Yoder on 01-15-2025 MCV (RBC) [Entitic vol] 86.6 fL 81-99 [facility] Mean corpuscular hemoglobin (MCH) determinationOrdered By: Jeevan Yoder on 01-15-2025 MCH (RBC) [Entitic mass] 27.8 pg 27.0-32.0 [facility] Mean corpuscular hemoglobin concentration (MCHC) determinationOrdered By: Jeevan Yoder on 01-15-2025 MCHC (RBC) [Mass/Vol] 32.1 g/dL 32-36 [facility] Mean platelet volume determi nationOrdered By: Jeevan Yoder on 01-15-2025 Platelet mean volume (Bld) [Entitic vol] 10.5 fL 6.2-12.0 [facility] Monocyte percentageOrdered B y: Jeevan Yoder on 01-15-2025 Monocytes/100 WBC (Bld) 6.9 % 0-10 [facility] Natriuretic peptide.B prohor hayley N-Terminal [Mass/volume] in Serum or PlasmaOrdered By: Jeevan Yoder on 01-15-2025 Natriuretic peptide.B prohormone N-Terminal [Mass/Vol] 4224 pg/mL High <1800 [facility] Comment on above: Heart Failure Unlike ly: < 300 pg/mLHeart Failure Likely< 50 Years: > 450 pg/mL50-75 Years: > 900 pg/mL>75 Years: > 1800 pg/mL Neutrophil percentageOrdered By: Jeevan Yoder on 01-15-2025 Neutrophils/100 WBC (Bld) 72.7 % High 47-70 [facility] Nucleated red blood cell per centageOrdered By: Jeevan Yoder on 01-15-2025 Nucleated RBC/100 WBC (Bld) [Ratio] 0 % 0-5 [facility] Platelet countOrdered By: Kenny Yoder on 01-15-2025 Platelets (Bld) [#/Vol] 256 10*3/uL 150-450 [facility] Potassium measurement (mass/ volume)Ordered By: Jeevan Yoder on 01-15-2025 Potassium (Unsp spec) [Mass/Vol] 3.7 mmol/L 3.3-5.1 [facility] RBC Auto (Bld) [#/Vol]Ordere d By: Jeevan Yoder on 01-15-2025 RBC (Bld) [#/Vol] 3.96 10*6/uL Low 4.2-5.4 [facility] Serum creatinine measurement (mass/volume)Ordered By: Jeevan Yoder on 01-15-2025 Creatinine [Mass/Vol] 0.92 mg/dL 0.70-1.20 [facility] Serum glucose measurement (m ass/volume)Ordered By: Jeevan Yoder on 01-15-2025 Glucose [Mass/Vol] 144 mg/dL High 70-99 [facility] Serum or plasma calcium melanie urement (mass/volume)Ordered By: Jeevan Yoder on 01-15-2025 Calcium [Mass/Vol] 9.6 mg/dL 7.6-11.0 [facility] Serum or plasma urea nitroge n measurement (mass/volume)Ordered By: Jeevan Yoder on 01-15-2025 Urea nitrogen [Mass/Vol] 15 mg/dL 4-19 [facility] Sodium levelOrdered By: Marcelino Yoder on 01-15-2025 Sodium [Moles/Vol] 138 mmol/L 133-145 [facility] Troponin T.cardiac [Mass/vol ume] in Serum or Plasma by High sensitivity methodOrdered By: Jeevan Yoder on 01-15-2025 Troponin T.cardiac High sensitivity method [Mass/Vol] 46 ng/L High <14 [facility] Troponin T.cardiac High sensitivity method [Mass/Vol] 46 ng/L High <14 [facility] White blood cell (WBC) count Ordered By: Jeevan Yoder on 01-15-2025 WBC (Bld) [#/Vol] 10.6 10*3/uL 4.4-11.0 [facility] 12 Lead EKGon 01-07-2025 12 Lead EKG Normal [facility] Absolute lymphocyte countOrd ered By: Ethan Darnell on 01-07-2025 Lymphocytes Auto (Unsp spec) [#/Vol] 2.89 10*3/uL 0.83-4.51 [facility] Absolute neutrophil countOrd ered By: Ethan Darnell on 01-07-2025 Neutrophils (Bld) [#/Vol] 5.3 10*3/uL 2.0-7.7 [facility] Anion gap in Serum or Plasma Ordered By: Ethan Darnell on 01-07-2025 Anion gap [Moles/Vol] 11 mmol/L 5- [facility] Automated lymphocyte count a s percentage of total leukocytesOrdered By: Ethan Darnell on 01-07-2025 Lymphocytes/100 WBC Auto (Unsp spec) 31.8 % 19-41 [facility] BUN/creatinine ratioOrdered By: Ethan Darnell on 01-07-2025 Urea nitrogen/Creatinine [Mass ratio] 15.5 mg/mg - [facility] Basic Metabolic Profile (BMP )on 01-07-2025 BUN/CRE 15.5 RATIO Normal - [facility] Comment on above: Performed By: #### L 100.0100, L500.2500 ####[facility] [address] [place], [place], [id number] Calcium [Mass/Vol] 10.3 mg/dL Normal 7.6-11.0 [facility] Comment on above: Performed By: #### L 100.0100, L500.2500 ####[facility] [address] [place], [address] Chloride [Moles/Vol] 99 mmol/L Normal 98-108 [facility] Comment on above: Performed By: #### L 100.0100, L500.2500 ####[facility] [address] [place], [address] CO2 [Moles/Vol] 22.5 mmol/L Normal 21.0-32.0 [facility] Comment on above: Performed By: #### L 100.0100, L500.2500 ####[facility] [address] [place], [address] Creatinine [Mass/Vol] 0.90 mg/dL Normal 0.70-1.20 [facility] Comment on above: Performed By: #### L 100.0100, L500.2500 ####[facility] [address] [place], [address] ECRCL 49.31 ml/min Low 50-250 [facility] Comment on above: Performed By: #### L 100.0100, L500.2500 ####[facility] [address] [place], [address] GAP 11 Normal 5-15 [facility] Comment on above: Performed By: #### L 100.0100, L500.2500 ####[facility] [address] [place], [address] GFR/1.73 sq M.predicted among non-blacks MDRD (S/P/Bld) [Vol rate/Area] 64 mL/min/{1.73_m2} Normal >60 [facility] Comment on above: Result Comment: mL/m in/1.73m2 CKD-EPI Creatinine Equation (2020) Performed By: #### L 100.0100, L500.2500 ####[facility] [address] [place], [address] Glucose [Mass/Vol] 321 mg/dL High 70-99 [facility] Comment on above: Performed By: #### L 100.0100, L500.2500 ####[facility] [address] [place], [address] Potassium [Moles/Vol] 3.8 mmol/L Normal 3.3-5.1 [facility] Comment on above: Result Comment: Hemo lysis present, Results??could be affected.?? Performed By: #### L 100.0100, L500.2500 ####[facility] [address] [place], [address] Sodium [Moles/Vol] 133 mmol/L Normal 133-145 [facility] Comment on above: Performed By: #### L 100.0100, L500.2500 ####[facility] [address] [place], [address] Urea nitrogen [Mass/Vol] 14 mg/dL Normal 4-19 [facility] Comment on above: Performed By: #### L 100.0100, L500.2500 ####[facility] [address] [place], [address] Basophil percentageOrdered B y: Ethan Darnell on 01-07-2025 Basophils/100 WBC (Bld) 0.5 % 0-1 [facility] Bedside Glucoseon 01-07-2025 FINGERSTICK GLU 316 mg/dL High 74-106 [facility] Comment on above: Result Comment: KATARINA GARY OF PATIENT CARE PER NURSING PROTOCOL Performed By: #### L 501.080 ####[facility] [address] [place], [address] CBC W/Diff, Automatedon 12-29 Absolute Lymph 2.89 X10 3/uL Normal 0.83-4.51 [facility] Comment on above: Performed By: #### L 100.0100, L500.2500 ####[facility] [address] [place], [address] Absolute Neut 5.3 X10 3/uL Normal 2.0-7.7 [facility] Comment on above: Performed By: #### L 100.0100, L500.2500 ####[facility] [address] [place], [address] Basophils/100 WBC (Bld) 0.5 % Normal 0-1 [facility] Comment on above: Performed By: #### L 100.0100, L500.2500 ####[facility] [address] [place], [address] Eosinophils/100 WBC (Bld) 1.9 % Normal 0-5 [facility] Comment on above: Performed By: #### L 100.0100, L500.2500 ####[facility] [address] [place], [address] Erythrocyte distribution width (RBC) [Ratio] 15.7 % High 11.6-14.6 [facility] Comment on above: Performed By: #### L 100.0100, L500.2500 ####[facility] [address] [place], [address] Hematocrit (Bld) [Volume fraction] 34.0 % Low 37-47 [facility] Comment on above: Performed By: #### L 100.0100, L500.2500 ####[facility] [address] [place], [address] Hemoglobin (Bld) [Mass/Vol] 10.5 g/dL Low 12.0-15.0 [facility] Comment on above: Performed By: #### L 100.0100, L500.2500 ####[facility] [address] [place], [address] IG% 0.200 Normal 0.0-0.9 [facility] Comment on above: Result Comment: IG% - Immature Granulocytes (promyelocytes, myelocytes andmetamyelocytes) > 1% indicates that a LEFT SHIFT is Present. Performed By: #### L 100.0100, L500.2500 ####[facility] [address] [place], [address] Lymphocytes/100 WBC (Bld) 31.8 % Normal 19-41 [facility] Comment on above: Performed By: #### L 100.0100, L500.2500 ####[facility] [address] [place], [address] MCH (RBC) [Entitic mass] 26.9 pg Low 27.0-32.0 [facility] Comment on above: Performed By: #### L 100.0100, L500.2500 ####[facility] [address] [place], [address] MCHC (RBC) [Mass/Vol] 30.9 g/dL Low 32-36 [facility] Comment on above: Performed By: #### L 100.0100, L500.2500 ####[facility] [address] [place], [address] MCV (RBC) [Entitic vol] 87.0 fL Normal 81-99 [facility] Comment on above: Performed By: #### L 100.0100, L500.2500 ####[facility] [address] [place], [address] Monocytes/100 WBC (Bld) 7.6 % Normal 0-10 [facility] Comment on above: Performed By: #### L 100.0100, L500.2500 ####[facility] [address] [place], [address] Neutrophils/100 WBC (Bld) 58.0 % Normal 47-70 [facility] Comment on above: Performed By: #### L 100.0100, L500.2500 ####[facility] [address] [place], [address] Nucleated RBC (Bld) [#/Vol] 0 10*3/uL Normal 0-5 [facility] Comment on above: Performed By: #### L 100.0100, L500.2500 ####[facility] [address] [place], [address] Platelet mean volume (Bld) [Entitic vol] 11.1 fL Normal 6.2-12.0 [facility] Comment on above: Performed By: #### L 100.0100, L500.2500 ####[facility] [address] [place], [address] Platelets (Bld) [#/Vol] 237 10*3/uL Normal 150-450 [facility] Comment on above: Performed By: #### L 100.0100, L500.2500 ####[facility] [address] [place], [address] RBC (Bld) [#/Vol] 3.91 10*6/uL Low 4.2-5.4 [facility] Comment on above: Performed By: #### L 100.0100, L500.2500 ####[facility] [address] [place], [address] RDW SD 49.4 fl High 35.1-43.9 [facility] Comment on above: Performed By: #### L 100.0100, L500.2500 ####[facility] [address] [place], [address] WBC (Bld) [#/Vol] 9.1 10*3/uL Normal 4.4-11.0 [facility] Comment on above: Performed By: #### L 100.0100, L500.2500 ####[facility] [address] [place], [address] Carbon dioxide, total [Moles /volume] in Central venous bloodOrdered By: Ethan Darnell on 01-07-2025 CO2 [Moles/Vol] 22.5 mmol/L 21.0-32.0 [facility] Chest PA and Lateralon 01-07 Chest PA and Lateral Normal [facility] Chloride assayOrdered By: Albaro Darnell on 01-07-2025 Chloride [Moles/Vol] 99 mmol/L 98-108 [facility] Emergency Department Summary on 01-07-2025 Emergency Department Summary Normal [facility] Eosinophil percentageOrdered By: Ethan Darnell on 01-07-2025 Eosinophils/100 WBC (Bld) 1.9 % 0-5 [facility] Erythrocyte distribution wid th ratioOrdered By: Ethan Darnell on 01-07-2025 Erythrocyte distribution width (RBC) [Ratio] 15.7 % High 11.6-14.6 [facility] Erythrocyte distribution wid th standard deviationOrdered By: Ethan Darnell on 01-07-2025 Erythrocyte distribution width (RBC) [Ratio] 49.4 fl High 35.1-43.9 [facility] Glomerular filtration rate ( GFR) estimation/1.73 sq m using serum, plasma, or whole bOrdered By: Ethan Darnell on 01-07-2025 GFR/1.73 sq M.predicted among non-blacks MDRD (S/P/Bld) [Vol rate/Area] 64 mL/min/{1.73_m2} >60 [facility] Comment on above: mL/min/1.73m2 CKD-EP I Creatinine Equation (2020) Glucose measurement at bedsi deOrdered By: Ethan Darnell on 01-07-2025 Glucose [Mass/Vol] 316 mg/dL High 74-106 [facility] Comment on above: MANAGEMENT OF PATIEN T CARE PER NURSING PROTOCOL Hematocrit Auto (Bld) [Volum e fraction]Ordered By: Ethan Darnell on 01-07-2025 Hematocrit (Bld) [Volume fraction] 34.0 % Low 37-47 [facility] Hemoglobin measurementOrdere d By: Ethan Darnell on 01-07-2025 Hemoglobin (Bld) [Mass/Vol] 10.5 g/dL Low 12.0-15.0 [facility] Immature granulocytes/100 WB C Auto (Bld)Ordered By: Ethan Darnell on 01-07-2025 Immature granulocytes/100 WBC (Bld) 0.200 % 0.0-0.9 [facility] Comment on above: IG% - Immature Granu locytes (promyelocytes, myelocytes and metamyelocytes) > 1% indicates that a LEFT SHIFT is Present. Influenza virus A and B and SARS-CoV-2 (COVID-19) and Respiratory syncytial virus RNAOrdered By: Ethan Darnell on 01-07-2025 SARS-CoV-2 (COVID-19) RNA BEBETO+probe Ql (Unsp spec) [facility] M100.678on 01-07-2025 M100.678 SARS-CoV-2 (COVID 19 ) Negative INFLUENZA A Negative INFLUENZA B Negative RSV PCR Negative Normal [facility] Comment on above: Performed By: #### M 100.678 ####[facility] [address] [place], [address] MCV (mean corpuscular volume ) determinationOrdered By: Ethan Darnell on 01-07-2025 MCV (RBC) [Entitic vol] 87.0 fL 81-99 [facility] Mean corpuscular hemoglobin (MCH) determinationOrdered By: Ethan Darnell on 01-07-2025 MCH (RBC) [Entitic mass] 26.9 pg Low 27.0-32.0 [facility] Mean corpuscular hemoglobin concentration (MCHC) determinationOrdered By: Ethan Darnell on 01-07-2025 MCHC (RBC) [Mass/Vol] 30.9 g/dL Low 32-36 [facility] Mean platelet volume determi nationOrdered By: Ethan Darnell on 01-07-2025 Platelet mean volume (Bld) [Entitic vol] 11.1 fL 6.2-12.0 [facility] Monocyte percentageOrdered B y: Ethan Darnell on 01-07-2025 Monocytes/100 WBC (Bld) 7.6 % 0-10 [facility] Neutrophil percentageOrdered By: Ethan Darnell on 01-07-2025 Neutrophils/100 WBC (Bld) 58.0 % 47-70 [facility] Nucleated red blood cell per centageOrdered By: Ethan Darnell on 01-07-2025 Nucleated RBC/100 WBC (Bld) [Ratio] 0 % 0-5 [facility] Platelet countOrdered By: Albaro foss Carie on 01-07-2025 Platelets (Bld) [#/Vol] 237 10*3/uL 150-450 [facility] Potassium measurement (mass/ volume)Ordered By: Ethan Darnell on 01-07-2025 Potassium (Unsp spec) [Mass/Vol] 3.8 mmol/L 3.3-5.1 [facility] Comment on above: Hemolysis present, R esults could be affected. RBC Auto (Bld) [#/Vol]Ordere d By: Ethan Darnell on 01-07-2025 RBC (Bld) [#/Vol] 3.91 10*6/uL Low 4.2-5.4 [facility] Serum creatinine measurement (mass/volume)Ordered By: Ethan Darnell on 01-07-2025 Creatinine [Mass/Vol] 0.90 mg/dL 0.70-1.20 [facility] Serum glucose measurement (m ass/volume)Ordered By: Ethan Darnell on 01-07-2025 Glucose [Mass/Vol] 321 mg/dL High 70-99 [facility] Serum or plasma calcium melanie urement (mass/volume)Ordered By: Ethan Darnell on 01-07-2025 Calcium [Mass/Vol] 10.3 mg/dL 7.6-11.0 [facility] Serum or plasma urea nitroge n measurement (mass/volume)Ordered By: Ethan Darnell on 01-07-2025 Urea nitrogen [Mass/Vol] 14 mg/dL 4-19 [facility] Sodium levelOrdered By: Ethan Darnell on 01-07-2025 Sodium [Moles/Vol] 133 mmol/L 133-145 [facility] White blood cell (WBC) count Ordered By: Ethan Darnell on 01-07-2025 WBC (Bld) [#/Vol] 9.1 10*3/uL 4.4-11.0 [facility] Inital Evaluation (1) - PTon 10-13-2024 Inital Evaluation (1) - PT Normal [facility] Albumin to globulin ratioOrd ered By: Ramone Smiley on 09-27-2024 Albumin/Globulin [Mass ratio] 0.6 {ratio} Low 0.9-2.4 [facility] Bilirubin, totalOrdered By: Ramone Smiley on 09-27-2024 Bilirubin [Mass/Vol] 0.20 mg/dL 0.20-1.00 [facility] Comment on above: For patients on eltr ombopag therapy, use of Dimension [place] TBIL is not recommended. Blood urea nitrogen (BUN)/cr eatinine ratioOrdered By: Ramone Smiley on 09-27-2024 Urea nitrogen/Creatinine [Mass ratio] 12.7 mg/mg 10-20 [facility] CBC-Complete Blood Cnt No Di ffon 09-27-2024 Erythrocyte distribution width (RBC) [Ratio] 15.9 % High 11.6-14.6 [facility] Comment on above: Order Comment: Order Date: 09/27/24Order Info: [id number] - CBC Performed By: #### L 500.4050, L100.0500 ####[facility] [address] [place], [address] Hematocrit (Bld) [Volume fraction] 35.7 % Low 37-47 [facility] Comment on above: Order Comment: Order Date: 09/27/24Order Info: [id number] - CBC Performed By: #### L 500.4050, L100.0500 ####[facility] [address] [place], [address] Hemoglobin (Bld) [Mass/Vol] 11.0 g/dL Low 12.0-15.0 [facility] Comment on above: Order Comment: Order Date: 09/27/24Order Info: [id number] - CBC Performed By: #### L 500.4050, L100.0500 ####[facility] [address] [place], [address] MCH (RBC) [Entitic mass] 25.8 pg Low 27.0-32.0 [facility] Comment on above: Order Comment: Order Date: 09/27/24Order Info: [id number] - CBC Performed By: #### L 500.4050, L100.0500 ####[facility] [address] [place], [address] MCHC (RBC) [Mass/Vol] 30.8 g/dL Low 32-36 [facility] Comment on above: Order Comment: Order Date: 09/27/24Order Info: [id number] - CBC Performed By: #### L 500.4050, L100.0500 ####[facility] [address] [place], [address] MCV (RBC) [Entitic vol] 83.6 fL Normal 81-99 [facility] Comment on above: Order Comment: Order Date: 09/27/24Order Info: [id number] - CBC Performed By: #### L 500.4050, L100.0500 ####[facility] [address] [place], [address] Platelet mean volume (Bld) [Entitic vol] 11.3 fL Normal 6.2-12.0 [facility] Comment on above: Order Comment: Order Date: 09/27/24Order Info: [id number] - CBC Performed By: #### L 500.4050, L100.0500 ####[facility] [address] [place], [address] Platelets (Bld) [#/Vol] 287 10*3/uL Normal 150-450 [facility] Comment on above: Order Comment: Order Date: 09/27/24Order Info: [id number] - CBC Performed By: #### L 500.4050, L100.0500 ####[facility] [address] [place], [address] RBC (Bld) [#/Vol] 4.27 10*6/uL Normal 4.2-5.4 [facility] Comment on above: Order Comment: Order Date: 09/27/24Order Info: [id number] - CBC Performed By: #### L 500.4050, L100.0500 ####[facility] [address] [place], [address] RDW SD 47.4 fl High 35.1-43.9 [facility] Comment on above: Order Comment: Order Date: 09/27/24Order Info: [id number] - CBC Performed By: #### L 500.4050, L100.0500 ####[facility] [address] [place], [address] WBC (Bld) [#/Vol] 8.6 10*3/uL Normal 4.4-11.0 [facility] Comment on above: Order Comment: Order Date: 09/27/24Order Info: [id number] - CBC Performed By: #### L 500.4050, L100.0500 ####[facility] [address] [place], [address] Carbon dioxide measurementOr dered By: Ramone Smiley on 09-27-2024 CO2 [Moles/Vol] 28.0 mmol/L 21.0-32.0 [facility] Chloride measurementOrdered By: Ramone Smiley on 09-27-2024 Chloride [Moles/Vol] 101 mmol/L 98-107 [facility] Comprehensive Metabolic Prof ilon 09-27-2024 Albumin [Mass/Vol] 3.0 g/dL Low 3.2-5.0 [facility] Comment on above: Order Comment: Order Date: 09/27/24Order Info: [id number] - CMPOrder Info: [id number] - CRE Performed By: #### L 500.4050, L100.0500 ####[facility] [address] [place], [address] Albumin/Globulin [Mass ratio] 0.6 {ratio} Low 0.9-2.4 [facility] Comment on above: Order Comment: Order Date: 09/27/24Order Info: [id number] - CMPOrder Info: [id number] - CRE Performed By: #### L 500.4050, L100.0500 ####[facility] [address] [place], [address] ALK P 145 U/L High 45-117 [facility] Comment on above: Order Comment: Order Date: 09/27/24Order Info: [id number] - CMPOrder Info: [id number] - CRE Performed By: #### L 500.4050, L100.0500 ####[facility] [address] [place], [address] ALT [Catalytic activity/Vol] 16 U/L Normal 13-56 [facility] Comment on above: Order Comment: Order Date: 09/27/24Order Info: [id number] - CMPOrder Info: [id number] - CRE Performed By: #### L 500.4050, L100.0500 ####[facility] [address] [place], [address] AST [Catalytic activity/Vol] 16 U/L Normal 15-37 [facility] Comment on above: Order Comment: Order Date: 09/27/24Order Info: [id number] - CMPOrder Info: [id number] - CRE Performed By: #### L 500.4050, L100.0500 ####[facility] [address] [place], [address] Bilirubin [Mass/Vol] 0.20 mg/dL Normal 0.20-1.00 [facility] Comment on above: Order Comment: Order Date: 09/27/24Order Info: [id number] - CMPOrder Info: [id number] - CRE Result Comment: For patients on eltrombopag therapy, use of Dimension [place] TBIL is not recommended. Performed By: #### L 500.4050, L100.0500 ####[facility] [address] [place], [address] BUN/CRE 12.7 RATIO Normal 10-20 [facility] Comment on above: Order Comment: Order Date: 09/27/24Order Info: [id number] - CMPOrder Info: [id number] - CRE Performed By: #### L 500.4050, L100.0500 ####[facility] [address] [place], [address] CA,Total 11.0 mg/dL High 8.5-10.1 [facility] Comment on above: Order Comment: Order Date: 09/27/24Order Info: [id number] - CMPOrder Info: 144- - CRE Performed By: #### L 500.4050, L100.0500 ####[facility] [address] [place], [address] Chloride [Moles/Vol] 101 mmol/L Normal 98-107 [facility] Comment on above: Order Comment: Order Date: 09/27/24Order Info: [id number] - CMPOrder Info: 144- - CRE Performed By: #### L 500.4050, L100.0500 ####[facility] [address] [place], [address] CO2 [Moles/Vol] 28.0 mmol/L Normal 21.0-32.0 [facility] Comment on above: Order Comment: Order Date: 09/27/24Order Info: [id number]- - CMPOrder Info: [id number]- - CRE Performed By: #### L 500.4050, L100.0500 ####[facility] [address] [place], [address] Creatinine [Mass/Vol] 0.86 mg/dL Normal 0.55-1.02 [facility] Comment on above: Order Comment: Order Date: 09/27/24Order Info: [id number] - CMPOrder Info: [id number] - CRE Result Comment: The validity of the calculated GFR GFRAA in patients over70 years has not been determined. Clinical correlation isessential. Performed By: #### L 500.4050, L100.0500 ####[facility] [address] [place], [address] EST GFR - AA 81 mL/min Normal >60 [facility] Comment on above: Order Comment: Order Date: 09/27/24Order Info: [id number] - CMPOrder Info: [id number] - CRE Result Comment: Afri can [place] GFR Calc Performed By: #### L 500.4050, L100.0500 ####[facility] [address] [place], [address] GAP 8 Normal 5-15 [facility] Comment on above: Order Comment: Order Date: 09/27/24Order Info: [id number] - CMPOrder Info: [id number] - CRE Performed By: #### L 500.4050, L100.0500 ####[facility] [address] [place], [address] GFR/1.73 sq M.predicted among non-blacks MDRD (S/P/Bld) [Vol rate/Area] 67 mL/min/{1.73_m2} Normal >60 [facility] Comment on above: Order Comment: Order Date: 09/27/24Order Info: [id number]- - CMPOrder Info: [id number]- - CRE Result Comment: Non- GFR Calc Performed By: #### L 500.4050, L100.0500 ####[facility] [address] [place], [address] Globulin (S) [Mass/Vol] 5.0 g/dL High 2.2-4.2 [facility] Comment on above: Order Comment: Order Date: 09/27/24Order Info: [id number] - CMPOrder Info: [id number] - CRE Performed By: #### L 500.4050, L100.0500 ####[facility] [address] [place], [address] Glucose [Mass/Vol] 144 mg/dL High 74-106 [facility] Comment on above: Order Comment: Order Date: 09/27/24Order Info: [id number] - CMPOrder Info: [id number] - CRE Result Comment: Fast ing Glucose result greater than or equal to 126 mg/dLsuggests DIABETES MELLITUS per A.D.A. criteria. Performed By: #### L 500.4050, L100.0500 ####[facility] [address] [place], [address] Potassium [Moles/Vol] 3.5 mmol/L Normal 3.5-5.1 [facility] Comment on above: Order Comment: Order Date: 09/27/24Order Info: [id number] - CMPOrder Info: [id number] - CRE Performed By: #### L 500.4050, L100.0500 ####[facility] [address] [place], [address] Sodium [Moles/Vol] 138 mmol/L Normal 136-145 [facility] Comment on above: Order Comment: Order Date: 09/27/24Order Info: [id number] - CMPOrder Info: [id number] - CRE Performed By: #### L 500.4050, L100.0500 ####[facility] [address] [place], [address] T PROT 8.0 g/dL Normal 6.4-8.2 [facility] Comment on above: Order Comment: Order Date: 09/27/24Order Info: [id number] - CMPOrder Info: [id number] - CRE Performed By: #### L 500.4050, L100.0500 ####[facility] [address] [place], [address] Urea nitrogen [Mass/Vol] 11 mg/dL Normal 7-18 [facility] Comment on above: Order Comment: Order Date: 09/27/24Order Info: [id number] - CMPOrder Info: [id number] - CRE Performed By: #### L 500.4050, L100.0500 ####[facility] [address] [place], [address] Erythrocyte distribution wid th ratioOrdered By: Ramone Smiley on 09-27-2024 Erythrocyte distribution width (RBC) [Ratio] 15.9 % High 11.6-14.6 [facility] Erythrocyte distribution wid th standard deviationOrdered By: Ramone Smiley on 09-27-2024 Erythrocyte distribution width (RBC) [Ratio] 47.4 fl High 35.1-43.9 [facility] Glomerular filtration rate ( GFR) estimationOrdered By: Ramone Smiley on 09-27-2024 GFR/1.73 sq M.predicted among non-blacks MDRD (S/P/Bld) [Vol rate/Area] 67 mL/min/{1.73_m2} >60 [facility] Comment on above: Non- GFR Calc Glucose measurementOrdered B y: Ramone Smiley on 09-27-2024 Glucose [Mass/Vol] 144 mg/dL High 74-106 [facility] Comment on above: Fasting Glucose resu lt greater than or equal to 126 mg/dL suggests DIABETES MELLITUS per A.D.A. criteria. Hematocrit Auto (Bld) [Volum e fraction]Ordered By: Ramone Smiley on 09-27-2024 Hematocrit (Bld) [Volume fraction] 35.7 % Low 37-47 [facility] Hemoglobin measurementOrdere d By: Ramone Smiley on 09-27-2024 Hemoglobin (Bld) [Mass/Vol] 11.0 g/dL Low 12.0-15.0 [facility] Laboratory - Chemistry and C hemistry - challengeOrdered By: Ramone Smiley on 09-27-2024 AST [Catalytic activity/Vol] 16 U/L 15-37 [facility] MCV (mean corpuscular volume ) determinationOrdered By: Ramone Smiley on 09-27-2024 MCV (RBC) [Entitic vol] 83.6 fL 81-99 [facility] Mean corpuscular hemoglobin (MCH) determinationOrdered By: Ramone Smiley on 09-27-2024 MCH (RBC) [Entitic mass] 25.8 pg Low 27.0-32.0 [facility] Mean corpuscular hemoglobin concentration (MCHC) determinationOrdered By: Ramone Smiley on 09-27-2024 MCHC (RBC) [Mass/Vol] 30.8 g/dL Low 32-36 [facility] Mean platelet volume determi nationOrdered By: Ramone Smiley on 09-27-2024 Platelet mean volume (Bld) [Entitic vol] 11.3 fL 6.2-12.0 [facility] No Panel InformationOrdered By: Ramone Smiley on 09-27-2024 16 U/L 15-37 [facility] Platelet countOrdered By: Richar Smiley on 09-27-2024 Platelets (Bld) [#/Vol] 287 10*3/uL 150-450 [facility] Potassium measurementOrdered By: Ramone Smiley on 09-27-2024 Potassium [Moles/Vol] 3.5 mmol/L 3.5-5.1 [facility] RBC Auto (Bld) [#/Vol]Ordere d By: Ramone Smiley on 09-27-2024 RBC (Bld) [#/Vol] 4.27 10*6/uL 4.2-5.4 [facility] Serum anion gap measurementO rdered By: Ramone Smiley on 09-27-2024 Anion gap [Moles/Vol] 8 mmol/L 5-15 [facility] Serum globulin measurementOr dered By: Ramone Smiley on 09-27-2024 Globulin (S) [Mass/Vol] 5.0 g/dL High 2.2-4.2 [facility] Serum or plasma alanine kelley otransferase (ALT) measurementOrdered By: Ramone Smiley on 09-27-2024 ALT [Catalytic activity/Vol] 16 U/L 13-56 [facility] Serum or plasma albumin melanie urement (mass/volume)Ordered By: Ramone Smiley on 09-27-2024 Albumin [Mass/Vol] 3.0 g/dL Low 3.2-5.0 [facility] Serum or plasma alkaline lissa sphatase measurementOrdered By: Ramone Smiley on 09-27-2024 ALP [Catalytic activity/Vol] 145 U/L High 45-117 [facility] Serum or plasma calcium melanie urement (mass/volume)Ordered By: Ramone Smiley on 09-27-2024 Calcium [Mass/Vol] 11.0 mg/dL High 8.5-10.1 [facility] Serum or plasma creatinine m easurement (mass/volume)Ordered By: Ramone Smiley on 09-27-2024 Creatinine [Mass/Vol] 0.86 mg/dL 0.55-1.02 [facility] Comment on above: The validity of the calculated GFR & GFRAA in patients over 70 years has not been determined. Clinical correlation is essential. Serum or plasma urea nitroge n measurement (mass/volume)Ordered By: Ramone Smiley on 09-27-2024 Urea nitrogen [Mass/Vol] 11 mg/dL 7-18 [facility] Sodium levelOrdered By: Ramone Smiley on 09-27-2024 Sodium [Moles/Vol] 138 mmol/L 136-145 [facility] Total proteinOrdered By: Lilliam Smiley on 09-27-2024 Protein [Mass/Vol] 8.0 g/dL 6.4-8.2 [facility] White blood cell (WBC) count Ordered By: Ramone Smiley on 09-27-2024 WBC (Bld) [#/Vol] 8.6 10*3/uL 4.4-11.0 [facility] Kidney and Bladderon 024 Kidney and Bladder Normal [facility] BNP,B-Type NATRIURETIC PEPTI Ishaan 06-19-2024 Natriuretic peptide B (Bld) [Mass/Vol] 81.6 pg/mL Normal 0-100 [facility] Comment on above: Performed By: #### L 100.0100, L500.2500, L503.6620 ####[facility] [address] [place], [address] Basic Metabolic Profile (BMP )on 06-19-2024 BUN/CRE 9.3 RATIO Low 06-19 [facility] Comment on above: Performed By: #### L 100.0100, L500.2500, L503.6620 ####[facility] [address] [place], [address] CA,Total 11.0 mg/dL High 8.5-10.1 [facility] Comment on above: Performed By: #### L 100.0100, L500.2500, L503.6620 ####[facility] [address] [place], [address] Chloride [Moles/Vol] 104 mmol/L Normal 98-107 [facility] Comment on above: Performed By: #### L 100.0100, L500.2500, L503.6620 ####[facility] [address] [place], [address] CO2 [Moles/Vol] 26.0 mmol/L Normal 21.0-32.0 [facility] Comment on above: Performed By: #### L 100.0100, L500.2500, L503.6620 ####[facility] [address] [place], [address] Creatinine [Mass/Vol] 1.08 mg/dL High 0.55-1.02 [facility] Comment on above: Result Comment: The validity of the calculated GFR GFRAA in patients over70 years has not been determined. Clinical correlation isessential. Performed By: #### L 100.0100, L500.2500, L503.6620 ####[facility] [address] [place], [address] EST GFR - AA 63 mL/min Normal >60 [facility] Comment on above: Result Comment: Afri can [place] GFR Calc Performed By: #### L 100.0100, L500.2500, L503.6620 ####[facility] [address] [place], [address] GAP 6 Normal 5-15 [facility] Comment on above: Performed By: #### L 100.0100, L500.2500, L503.6620 ####[facility] [address] [place], [address] GFR/1.73 sq M.predicted among non-blacks MDRD (S/P/Bld) [Vol rate/Area] 52 mL/min/{1.73_m2} Low >60 [facility] Comment on above: Result Comment: Non- GFR Calc Performed By: #### L 100.0100, L500.2500, L503.6620 ####[facility] [address] [place], [address] Glucose [Mass/Vol] 263 mg/dL High 74-106 [facility] Comment on above: Result Comment: Gluc ose result greater than or equal to 200 mg/dLsuggests DIABETES MELLITUS per A.D.A. criteria. Performed By: #### L 100.0100, L500.2500, L503.6620 ####[facility] [address] [place], [address] Potassium [Moles/Vol] 4.4 mmol/L Normal 3.5-5.1 [facility] Comment on above: Performed By: #### L 100.0100, L500.2500, L503.6620 ####[facility] [address] [place], [address] Sodium [Moles/Vol] 137 mmol/L Normal 136-145 [facility] Comment on above: Performed By: #### L 100.0100, L500.2500, L503.6620 ####[facility] [address] [place], [address] Urea nitrogen [Mass/Vol] 10 mg/dL Normal 7-18 [facility] Comment on above: Performed By: #### L 100.0100, L500.2500, L503.6620 ####[facility] [address] [place], [address] CBC W/Diff, Automatedon 10-2 0-4 Absolute Lymph 2.32 X10 3/uL Normal 0.83-4.51 [facility] Comment on above: Performed By: #### L 100.0100, L500.2500, L503.6620 ####[facility] [address] [place], [address] Absolute Neut 4.7 X10 3/uL Normal 2.0-7.7 [facility] Comment on above: Performed By: #### L 100.0100, L500.2500, L503.6620 ####[facility] [address] [place], [address] Basophils/100 WBC (Bld) 0.5 % Normal 0-1 [facility] Comment on above: Performed By: #### L 100.0100, L500.2500, L503.6620 ####[facility] [address] [place], [address] Eosinophils/100 WBC (Bld) 8.7 % High 0-5 [facility] Comment on above: Performed By: #### L 100.0100, L500.2500, L503.6620 ####[facility] [address] [place], [address] Erythrocyte distribution width (RBC) [Ratio] 16.6 % High 11.6-14.6 [facility] Comment on above: Performed By: #### L 100.0100, L500.2500, L503.6620 ####[facility] [address] [place], [address] Hematocrit (Bld) [Volume fraction] 36.6 % Low 37-47 [facility] Comment on above: Performed By: #### L 100.0100, L500.2500, L503.6620 ####[facility] [address] [place], [address] Hemoglobin (Bld) [Mass/Vol] 11.2 g/dL Low 12.0-15.0 [facility] Comment on above: Performed By: #### L 100.0100, L500.2500, L503.6620 ####[facility] [address] [place], [address] IG% 0.200 Normal 0.0-0.9 [facility] Comment on above: Result Comment: IG% - Immature Granulocytes (promyelocytes, myelocytes andmetamyelocytes) > 1% indicates that a LEFT SHIFT is Present. Performed By: #### L 100.0100, L500.2500, L503.6620 ####[facility] [address] [place], [address] Lymphocytes/100 WBC (Bld) 27.7 % Normal 19-41 [facility] Comment on above: Performed By: #### L 100.0100, L500.2500, L503.6620 ####[facility] [address] [place], [address] MCH (RBC) [Entitic mass] 25.6 pg Low 27.0-32.0 [facility] Comment on above: Performed By: #### L 100.0100, L500.2500, L503.6620 ####[facility] [address] [place], [address] MCHC (RBC) [Mass/Vol] 30.6 g/dL Low 32-36 [facility] Comment on above: Performed By: #### L 100.0100, L500.2500, L503.6620 ####[facility] [address] [place], [address] MCV (RBC) [Entitic vol] 83.8 fL Normal 81-99 [facility] Comment on above: Performed By: #### L 100.0100, L500.2500, L503.6620 ####[facility] [address] [place], [address] Monocytes/100 WBC (Bld) 6.7 % Normal 0-10 [facility] Comment on above: Performed By: #### L 100.0100, L500.2500, L503.6620 ####[facility] [address] [place], [address] Neutrophils/100 WBC (Bld) 56.2 % Normal 47-70 [facility] Comment on above: Performed By: #### L 100.0100, L500.2500, L503.6620 ####[facility] [address] [place], [address] Nucleated RBC (Bld) [#/Vol] 0 10*3/uL Normal 0-5 [facility] Comment on above: Performed By: #### L 100.0100, L500.2500, L503.6620 ####[facility] [address] [place], [address] Platelet mean volume (Bld) [Entitic vol] 10.4 fL Normal 6.2-12.0 [facility] Comment on above: Performed By: #### L 100.0100, L500.2500, L503.6620 ####[facility] [address] [place], [address] Platelets (Bld) [#/Vol] 234 10*3/uL Normal 150-450 [facility] Comment on above: Performed By: #### L 100.0100, L500.2500, L503.6620 ####[facility] [address] [place], [address] RBC (Bld) [#/Vol] 4.37 10*6/uL Normal 4.2-5.4 [facility] Comment on above: Performed By: #### L 100.0100, L500.2500, L503.6620 ####[facility] [address] [place], [address] RDW SD 50.9 fl High 35.1-43.9 [facility] Comment on above: Performed By: #### L 100.0100, L500.2500, L503.6620 ####[facility] [address] [place], [address] WBC (Bld) [#/Vol] 8.4 10*3/uL Normal 4.4-11.0 [facility] Comment on above: Performed By: #### L 100.0100, L500.2500, L503.6620 ####[facility] [address] [place], [address] Chest 1 View (Portable)on Chest 1 View (Portable) Normal [facility] Emergency Department Summary on 06-19-2024 Emergency Department Summary Normal [facility] 12 Lead EKGon 05-30-2024 12 Lead EKG Normal [facility] BNP,B-Type NATRIURETIC PEPTI Ishaan 05-30-2024 Natriuretic peptide B (Bld) [Mass/Vol] 108.0 pg/mL High 0-100 [facility] Comment on above: Performed By: #### L 100.0100, L501.4020, L503.6620, L500.2500 ####[facility] [address] [place], [address] Basic Metabolic Profile (BMP )on 05-30-2024 BUN/CRE 12.8 RATIO Normal 06-19 [facility] Comment on above: Order Comment: 'TROP ' Serial specimen #1, #2 or #3: 1 Performed By: #### L 100.0100, L501.4020, L503.6620, L500.2500 ####[facility] [address] [place], [address] CA,Total 11.4 mg/dL High 8.5-10.1 [facility] Comment on above: Order Comment: 'TROP ' Serial specimen #1, #2 or #3: 1 Performed By: #### L 100.0100, L501.4020, L503.6620, L500.2500 ####[facility] [address] [place], [address] Chloride [Moles/Vol] 104 mmol/L Normal 98-107 [facility] Comment on above: Order Comment: 'TROP ' Serial specimen #1, #2 or #3: 1 Performed By: #### L 100.0100, L501.4020, L503.6620, L500.2500 ####[facility] [address] [place], [address] CO2 [Moles/Vol] 28.0 mmol/L Normal 21.0-32.0 [facility] Comment on above: Order Comment: 'TROP ' Serial specimen #1, #2 or #3: 1 Performed By: #### L 100.0100, L501.4020, L503.6620, L500.2500 ####[facility] [address] [place], [address] Creatinine [Mass/Vol] 0.93 mg/dL Normal 0.55-1.02 [facility] Comment on above: Order Comment: 'TROP ' Serial specimen #1, #2 or #3: 1 Result Comment: The validity of the calculated GFR GFRAA in patients over70 years has not been determined. Clinical correlation isessential. Performed By: #### L 100.0100, L501.4020, L503.6620, L500.2500 ####[facility] [address] [place], [address] ECRCL 45.88 ml/min Normal [facility] Comment on above: Order Comment: 'TROP ' Serial specimen #1, #2 or #3: 1 Performed By: #### L 100.0100, L501.4020, L503.6620, L500.2500 ####[facility] [address] [place], [address] EST GFR - AA 74 mL/min Normal >60 [facility] Comment on above: Order Comment: 'TROP ' Serial specimen #1, #2 or #3: 1 Result Comment: Afri can [place] GFR Calc Performed By: #### L 100.0100, L501.4020, L503.6620, L500.2500 ####[facility] [address] [place], [address] GAP 7 Normal 5-15 [facility] Comment on above: Order Comment: 'TROP ' Serial specimen #1, #2 or #3: 1 Performed By: #### L 100.0100, L501.4020, L503.6620, L500.2500 ####[facility] [address] [place], [address] GFR/1.73 sq M.predicted among non-blacks MDRD (S/P/Bld) [Vol rate/Area] 61 mL/min/{1.73_m2} Normal >60 [facility] Comment on above: Order Comment: 'TROP ' Serial specimen #1, #2 or #3: 1 Result Comment: Non- GFR Calc Performed By: #### L 100.0100, L501.4020, L503.6620, L500.2500 ####[facility] [address] [place], [address] Glucose [Mass/Vol] 167 mg/dL High 74-106 [facility] Comment on above: Order Comment: 'TROP ' Serial specimen #1, #2 or #3: 1 Result Comment: Fast ing Glucose result greater than or equal to 126 mg/dLsuggests DIABETES MELLITUS per A.D.A. criteria. Performed By: #### L 100.0100, L501.4020, L503.6620, L500.2500 ####[facility] [address] [place], [address] Potassium [Moles/Vol] 4.0 mmol/L Normal 3.5-5.1 [facility] Comment on above: Order Comment: 'TROP ' Serial specimen #1, #2 or #3: 1 Performed By: #### L 100.0100, L501.4020, L503.6620, L500.2500 ####[facility] [address] [place], [address] Sodium [Moles/Vol] 138 mmol/L Normal 136-145 [facility] Comment on above: Order Comment: 'TROP ' Serial specimen #1, #2 or #3: 1 Performed By: #### L 100.0100, L501.4020, L503.6620, L500.2500 ####[facility] [address] [place], [address] Urea nitrogen [Mass/Vol] 12 mg/dL Normal 7-18 [facility] Comment on above: Order Comment: 'TROP ' Serial specimen #1, #2 or #3: 1 Performed By: #### L 100.0100, L501.4020, L503.6620, L500.2500 ####[facility] [address] [place], [address] CBC W/Diff, Automatedon 05-03 PLT EST ADEQUATE Normal ADEQ [facility] Comment on above: Performed By: #### L 100.0100, L501.4020, L503.6620, L500.2500 ####[facility] [address] [place], [address] Chest PA and Lateralon 05-30 Chest PA and Lateral Normal [facility] Emergency Department Summary on 05-30-2024 Emergency Department Summary Normal [facility] L501.4020on 05-30-2024 TROPONIN-I HS 12 pg/mL Normal 3.0-54.0 [facility] Comment on above: Order Comment: 'TROP ' Serial specimen #1, #2 or #3: 1 Result Comment: Sean reyes Note: New Test Units and Gender Specific Reference Ranges. For more information see Policy Stat Procedure [place] High Sensitivity Troponin (TNIH) and attachments. Performed By: #### L 100.0100, L501.4020, L503.6620, L500.2500 ####[facility] [address] [place], [address] Inital Evaluation (1) - PTon 04-26-2024 Inital Evaluation (1) - PT Normal [facility] CBC W/Diff, Automatedon 03-31 Absolute Lymph 1.93 X10 3/uL Normal 0.83-4.51 [facility] Comment on above: Performed By: #### L 500.4050, L100.0100, L501.9985 ####[facility] [address] [place], [address] Absolute Neut 5.1 X10 3/uL Normal 2.0-7.7 [facility] Comment on above: Performed By: #### L 500.4050, L100.0100, L501.9985 ####[facility] [address] [place], [address] Basophils/100 WBC (Bld) 0.6 % Normal 0-1 [facility] Comment on above: Performed By: #### L 500.4050, L100.0100, L501.9985 ####[facility] [address] [place], [address] Eosinophils/100 WBC (Bld) 3.7 % Normal 0-5 [facility] Comment on above: Performed By: #### L 500.4050, L100.0100, L501.9985 ####[facility] [address] [place], [address] Erythrocyte distribution width (RBC) [Ratio] 16.0 % High 11.6-14.6 [facility] Comment on above: Performed By: #### L 500.4050, L100.0100, L501.9985 ####[facility] [address] [place], [address] Hematocrit (Bld) [Volume fraction] 34.9 % Low 37-47 [facility] Comment on above: Performed By: #### L 500.4050, L100.0100, L501.9985 ####[facility] [address] [place], [address] Hemoglobin (Bld) [Mass/Vol] 10.4 g/dL Low 12.0-15.0 [facility] Comment on above: Performed By: #### L 500.4050, L100.0100, L501.9985 ####[facility] [address] [place], [address] IG% 0.300 Normal 0.0-0.9 [facility] Comment on above: Result Comment: IG% - Immature Granulocytes (promyelocytes, myelocytes andmetamyelocytes) > 1% indicates that a LEFT SHIFT is Present. Performed By: #### L 500.4050, L100.0100, L501.9985 ####[facility] [address] [place], [address] Lymphocytes/100 WBC (Bld) 24.5 % Normal 19-41 [facility] Comment on above: Performed By: #### L 500.4050, L100.0100, L501.9985 ####[facility] [address] [place], [address] MCH (RBC) [Entitic mass] 24.4 pg Low 27.0-32.0 [facility] Comment on above: Performed By: #### L 500.4050, L100.0100, L501.9985 ####[facility] [address] [place], [address] MCHC (RBC) [Mass/Vol] 29.8 g/dL Low 32-36 [facility] Comment on above: Performed By: #### L 500.4050, L100.0100, L501.9985 ####[facility] [address] [place], [address] MCV (RBC) [Entitic vol] 81.9 fL Normal 81-99 [facility] Comment on above: Performed By: #### L 500.4050, L100.0100, L501.9985 ####[facility] [address] [place], [address] Monocytes/100 WBC (Bld) 6.8 % Normal 0-10 [facility] Comment on above: Performed By: #### L 500.4050, L100.0100, L501.9985 ####[facility] [address] [place], [address] Neutrophils/100 WBC (Bld) 64.1 % Normal 47-70 [facility] Comment on above: Performed By: #### L 500.4050, L100.0100, L501.9985 ####[facility] [address] [place], [address] Nucleated RBC (Bld) [#/Vol] 0 10*3/uL Normal 0-5 [facility] Comment on above: Performed By: #### L 500.4050, L100.0100, L501.9985 ####[facility] [address] [place], [address] Platelet mean volume (Bld) [Entitic vol] 10.7 fL Normal 6.2-12.0 [facility] Comment on above: Performed By: #### L 500.4050, L100.0100, L501.9985 ####[facility] [address] [place], [address] Platelets (Bld) [#/Vol] 294 10*3/uL Normal 150-450 [facility] Comment on above: Performed By: #### L 500.4050, L100.0100, L501.9985 ####[facility] [address] [place], [address] RBC (Bld) [#/Vol] 4.26 10*6/uL Normal 4.2-5.4 [facility] Comment on above: Performed By: #### L 500.4050, L100.0100, L501.9985 ####[facility] [address] [place], [address] RDW SD 48.0 fl High 35.1-43.9 [facility] Comment on above: Performed By: #### L 500.4050, L100.0100, L501.9985 ####[facility] [address] [place], [address] WBC (Bld) [#/Vol] 7.9 10*3/uL Normal 4.4-11.0 [facility] Comment on above: Performed By: #### L 500.4050, L100.0100, L501.9985 ####[facility] [address] [place], [address] Comprehensive Metabolic Prof [facility] 04-18-2024 Albumin [Mass/Vol] 3.0 g/dL Low 3.2-5.0 [facility] Comment on above: Performed By: #### L 500.4050, L100.0100, L501.9985 ####[facility] [address] [place], [address] Albumin/Globulin [Mass ratio] 0.6 {ratio} Low 0.9-2.4 [facility] Comment on above: Performed By: #### L 500.4050, L100.0100, L501.9985 ####[facility] [address] [place], [address] ALK P 130 U/L High 45-117 [facility] Comment on above: Performed By: #### L 500.4050, L100.0100, L501.9985 ####[facility] [address] [place], [address] ALT [Catalytic activity/Vol] 14 U/L Normal 13-56 [facility] Comment on above: Performed By: #### L 500.4050, L100.0100, L501.9985 ####[facility] [address] [place], [address] AST [Catalytic activity/Vol] 22 U/L Normal 15-37 [facility] Comment on above: Performed By: #### L 500.4050, L100.0100, L501.9985 ####[facility] [address] [place], [address] Bilirubin [Mass/Vol] 0.30 mg/dL Normal 0.20-1.00 [facility] Comment on above: Result Comment: For patients on eltrombopag therapy, use of Dimension [place] TBIL is not recommended. Performed By: #### L 500.4050, L100.0100, L501.9985 ####[facility] [address] [place], [address] BUN/CRE 12.5 RATIO Normal 10-20 [facility] Comment on above: Performed By: #### L 500.4050, L100.0100, L501.9985 ####[facility] [address] [place], [address] CA,Total 11.0 mg/dL High 8.5-10.1 [facility] Comment on above: Performed By: #### L 500.4050, L100.0100, L501.9985 ####[facility] [address] [place], [address] Chloride [Moles/Vol] 101 mmol/L Normal 98-107 [facility] Comment on above: Performed By: #### L 500.4050, L100.0100, L501.9985 ####[facility] [address] [place], [address] CO2 [Moles/Vol] 26.0 mmol/L Normal 21.0-32.0 [facility] Comment on above: Performed By: #### L 500.4050, L100.0100, L501.9985 ####[facility] [address] [place], [address] Creatinine [Mass/Vol] 0.96 mg/dL Normal 0.55-1.02 [facility] Comment on above: Result Comment: The validity of the calculated GFR GFRAA in patients over70 years has not been determined. Clinical correlation isessential. Performed By: #### L 500.4050, L100.0100, L501.9985 ####[facility] [address] [place], [address] EST GFR - AA 72 mL/min Normal >60 [facility] Comment on above: Result Comment: Afri can [place] GFR Calc Performed By: #### L 500.4050, L100.0100, L501.9985 ####[facility] [address] [place], [address] GAP 6 Normal 5-15 [facility] Comment on above: Performed By: #### L 500.4050, L100.0100, L501.9985 ####[facility] [address] [place], [address] GFR/1.73 sq M.predicted among non-blacks MDRD (S/P/Bld) [Vol rate/Area] 59 mL/min/{1.73_m2} Low >60 [facility] Comment on above: Result Comment: Non- GFR Calc Performed By: #### L 500.4050, L100.0100, L501.9985 ####[facility] [address] [place], [address] Globulin (S) [Mass/Vol] 5.4 g/dL High 2.2-4.2 [facility] Comment on above: Performed By: #### L 500.4050, L100.0100, L501.9985 ####[facility] [address] [place], [address] Glucose [Mass/Vol] 142 mg/dL High 74-106 [facility] Comment on above: Result Comment: Fast ing Glucose result greater than or equal to 126 mg/dLsuggests DIABETES MELLITUS per A.D.A. criteria. Performed By: #### L 500.4050, L100.0100, L501.9985 ####[facility] [address] [place], [address] Potassium [Moles/Vol] 3.5 mmol/L Normal 3.5-5.1 [facility] Comment on above: Performed By: #### L 500.4050, L100.0100, L501.9985 ####[facility] [address] [place], [address] Sodium [Moles/Vol] 133 mmol/L Low 136-145 [facility] Comment on above: Performed By: #### L 500.4050, L100.0100, L501.9985 ####[facility] [address] [place], [address] T PROT 8.4 g/dL High 6.4-8.2 [facility] Comment on above: Performed By: #### L 500.4050, L100.0100, L501.9985 ####[facility] [address] [place], [address] Urea nitrogen [Mass/Vol] 12 mg/dL Normal 7-18 [facility] Comment on above: Performed By: #### L 500.4050, L100.0100, L501.9985 ####[facility] [address] [place], [address] Hemoglobin A1con 04-18-2024 HbA1c (Bld) [Mass fraction] 8.2 % High 3.8-5.6 [facility] Comment on above: Result Comment: Norm al < 5.7 % Prediabetic 5.7 - 6.4 % Diabetic >or= 6.5 % Please note range changes. Performed By: #### L 500.4050, L100.0100, L501.9985 ####[facility] [address] [place], [address] Inital Evaluation (1) - PTon 03-10-2024 Inital Evaluation (1) - PT Normal [facility] Absolute lymphocyte countOrd ered By: Sunny Bell on 12-30-2023 Lymphocytes Auto (Unsp spec) [#/Vol] 2.48 10*3/uL 0.83-4.51 [facility] Automated lymphocyte count a s percentage of total leukocytesOrdered By: Sunny Bell on 12-30-2023 Lymphocytes/100 WBC Auto (Unsp spec) 25.3 % 19-41 [facility] Basophil percentageOrdered B y: Sunny Bell on 12-30-2023 Basophils/100 WBC (Bld) 0.3 % 0-1 [facility] Chloride [Moles/Vol] 104 mmol/L 98-107 [facility] Eosinophils/100 WBC (Bld) 1.4 % 0-5 [facility] Glucose [Mass/Vol] 127 mg/dL 74-106 [facility] Comment on above: Fasting Glucose resu lt greater than or equal to 126 mg/dL suggests DIABETES MELLITUS per A.D.A. criteria. Hemoglobin (Bld) [Mass/Vol] 10.7 g/dL 12.0-15.0 [facility] Monocytes/100 WBC (Bld) 8.7 % 0-10 [facility] Neutrophils (Bld) [#/Vol] 6.3 10*3/uL 2.0-7.7 [facility] Neutrophils/100 WBC (Bld) 63.9 % 47-70 [facility] Potassium [Moles/Vol] 4.4 mmol/L 3.5-5.1 [facility] Sodium [Moles/Vol] 135 mmol/L 136-145 [facility] WBC (Bld) [#/Vol] 9.8 10*3/uL 4.4-11.0 [facility] Determination of erythrocyte mean corpuscular volume (MCV)Ordered By: Sunny Bell on 12-30-2023 MCV (RBC) [Entitic vol] 84.9 fL 81-99 [facility] Erythrocyte distribution wid th ratioOrdered By: Sunny Bell on 12-30-2023 Erythrocyte distribution width (RBC) [Ratio] 15.5 % 11.6-14.6 [facility] Erythrocyte distribution wid th standard deviationOrdered By: Sunny Bell on 12-30-2023 Erythrocyte distribution width (RBC) [Entitic vol] 47.9 fL 35.1-43.9 [facility] Hematocrit Auto (Bld) [Volum e fraction]Ordered By: Sunny Bell on 12-30-2023 Hematocrit (Bld) [Volume fraction] 33.8 % 37-47 [facility] Immature granulocytes/100 WB C Auto (Bld)Ordered By: Sunny Bell on 12-30-2023 Immature granulocytes/100 WBC (Bld) 0.400 % 0.0-0.9 [facility] Comment on above: IG% - Immature Granu locytes (promyelocytes, myelocytes and metamyelocytes) > 1% indicates that a LEFT SHIFT is Present. Laboratory - Chemistry and C hemistry - challengeOrdered By: Sunny Bell on 12-30-2023 CO2 [Moles/Vol] 27.0 mmol/L 21.0-32.0 [facility] Urea nitrogen/Creatinine [Mass ratio] 21.3 mg/mg 10-20 [facility] Laboratory - Hematology and Cell countsOrdered By: Sunny Bell on 12-30-2023 MCH (RBC) [Entitic mass] 26.9 pg 27.0-32.0 [facility] MCHC (RBC) [Mass/Vol] 31.7 g/dL 32-36 [facility] Nucleated RBC/100 WBC (Bld) [Ratio] 0 % 0-5 [facility] Platelet mean volume (Bld) [Entitic vol] 11.3 fL 6.2-12.0 [facility] Platelets (Bld) [#/Vol] 191 10*3/uL 150-450 [facility] No Panel InformationOrdered By: Sunny Bell on 12-30-2023 Estimated Creatinine Clearance Calc 40.01 ml/min [facility] Estimated GFR (MDRD) Amer 63 mL/min >60 [facility] Comment on above: GFR Calc Estimated GFR (MDRD) Non-Af Amer 52 mL/min >60 [facility] Comment on above: Non- GFR Calc RBC Auto (Bld) [#/Vol]Ordere d By: Sunny Bell on 12-30-2023 RBC (Bld) [#/Vol] 3.98 10*6/uL 4.2-5.4 [facility] Serum or plasma calcium melanie urement (mass/volume)Ordered By: Sunny Bell on 12-30-2023 Calcium [Mass/Vol] 11.3 mg/dL 8.5-10.1 [facility] Serum or plasma creatinine m easurement (mass/volume)Ordered By: Sunny Bell on 12-30-2023 Creatinine [Mass/Vol] 1.08 mg/dL 0.55-1.02 [facility] Comment on above: The validity of the calculated GFR & GFRAA in patients over 70 years has not been determined. Clinical correlation is essential. Serum or plasma urea nitroge n measurement (mass/volume)Ordered By: Sunny Bell on 12-30-2023 Urea nitrogen [Mass/Vol] 23 mg/dL 7-18 [facility] Thin prep Papanicolaou smear with manual screeningOrdered By: Sunny Bell on 12-30-2023 Thin prep Papanicolaou smear with manual screening 78 mg/dL 74-106 [facility] Comment on above: MANAGEMENT OF PATIEN T CARE PER NURSING PROTOCOL Thin prep Papanicolaou smear with manual screening 4 5-15 [facility] Basophil percentageOrdered B y: Sunny Bell on 12-28-2023 Basophil percentage 3.0 mg/dL 2.5-4.9 [facility] No Panel InformationOrdered By: Nestor Bartlett on 12-28-2023 Parathyroid Hormone (Intact) 177.6 pg/mL 18.4-80.1 [facility] Absolute lymphocyte countOrd ered By: Queta Cortez on 12-27-2023 Lymphocytes Auto (Unsp spec) [#/Vol] 3.04 10*3/uL 0.83-4.51 [facility] Activated partial thrombopla stin time (aPTT) in platelet poor plasma by coagulation aOrdered By: Queta Cortez on 12-27-2023 aPTT Coag (PPP) [Time] 27.3 s 24.1-36.2 [facility] Automated lymphocyte count a s percentage of total leukocytesOrdered By: Queta Cortez on 12-27-2023 Lymphocytes/100 WBC Auto (Unsp spec) 37.1 % 19-41 [facility] Basophil percentageOrdered B y: Queta Cortez on 12-27-2023 Basophils/100 WBC (Bld) 0.5 % 0-1 [facility] Chloride [Moles/Vol] 103 mmol/L 98-107 [facility] Eosinophils/100 WBC (Bld) 3.1 % 0-5 [facility] Glucose [Mass/Vol] 254 mg/dL 74-106 [facility] Comment on above: Glucose result great er than or equal to 200 mg/dLsuggests DIABETES MELLITUS per A.D.A. criteria. Hemoglobin (Bld) [Mass/Vol] 12.4 g/dL 12.0-15.0 [facility] Monocytes/100 WBC (Bld) 6.6 % 0-10 [facility] Neutrophils (Bld) [#/Vol] 4.2 10*3/uL 2.0-7.7 [facility] Neutrophils/100 WBC (Bld) 51.7 % 47-70 [facility] Potassium [Moles/Vol] 4.2 mmol/L 3.5-5.1 [facility] Sodium [Moles/Vol] 136 mmol/L 136-145 [facility] WBC (Bld) [#/Vol] 8.2 10*3/uL 4.4-11.0 [facility] Determination of erythrocyte mean corpuscular volume (MCV)Ordered By: Queta Cortez on 12-27-2023 MCV (RBC) [Entitic vol] 85.2 fL 81-99 [facility] Erythrocyte distribution wid th ratioOrdered By: Queta Cortez on 12-27-2023 Erythrocyte distribution width (RBC) [Ratio] 15.5 % 11.6-14.6 [facility] Erythrocyte distribution wid th standard deviationOrdered By: Queta Cortez on 12-27-2023 Erythrocyte distribution width (RBC) [Entitic vol] 47.0 fL 35.1-43.9 [facility] Hematocrit Auto (Bld) [Volum e fraction]Ordered By: Queta Cortez on 12-27-2023 Hematocrit (Bld) [Volume fraction] 39.8 % 37-47 [facility] Immature granulocytes/100 WB C Auto (Bld)Ordered By: Queta Cortez on 12-27-2023 Immature granulocytes/100 WBC (Bld) 1.000 % 0.0-0.9 [facility] Comment on above: IG% - Immature Granu locytes (promyelocytes, myelocytes and metamyelocytes) > 1% indicates that a LEFT SHIFT is Present. Laboratory - Chemistry and C hemistry - challengeOrdered By: Queta Cortez on 12-27-2023 CO2 [Moles/Vol] 29.0 mmol/L 21.0-32.0 [facility] Urea nitrogen/Creatinine [Mass ratio] 18.5 mg/mg 10-20 [facility] Laboratory - CoagulationOrde red By: Queta Cortez on 12-27-2023 INR Coag (Bld) [Relative time] 1.1 {INR} [facility] PT Coag (PPP) [Time] 13.7 s 11.7-14.9 [facility] Laboratory - Hematology and Cell countsOrdered By: Queta Cortez on 12-27-2023 MCH (RBC) [Entitic mass] 26.6 pg 27.0-32.0 [facility] MCHC (RBC) [Mass/Vol] 31.2 g/dL 32-36 [facility] Nucleated RBC/100 WBC (Bld) [Ratio] 0 % 0-5 [facility] Platelet mean volume (Bld) [Entitic vol] 11.5 fL 6.2-12.0 [facility] Platelets (Bld) [#/Vol] 237 10*3/uL 150-450 [facility] No Panel InformationOrdered By: Queta Cortez on 12-27-2023 Estimated Creatinine Clearance Calc 37.33 ml/min [facility] Estimated GFR (MDRD) Amer 56 mL/min >60 [facility] Comment on above: GFR Calc Estimated GFR (MDRD) Non-Af Amer 46 mL/min >60 [facility] Comment on above: Non- GFR Calc RBC Auto (Bld) [#/Vol]Ordere d By: Queta Cortez on 12-27-2023 RBC (Bld) [#/Vol] 4.67 10*6/uL 4.2-5.4 [facility] Serum or plasma calcium melanie urement (mass/volume)Ordered By: Queta Cortez on 12-27-2023 Calcium [Mass/Vol] 11.2 mg/dL 8.5-10.1 [facility] Serum or plasma creatinine m easurement (mass/volume)Ordered By: Queta Cortez on 12-27-2023 Creatinine [Mass/Vol] 1.19 mg/dL 0.55-1.02 [facility] Comment on above: The validity of the calculated GFR & GFRAA in patients over 70 years has not been determined. Clinical correlation is essential. Serum or plasma urea nitroge n measurement (mass/volume)Ordered By: Queta Cortez on 12-27-2023 Urea nitrogen [Mass/Vol] 22 mg/dL 7-18 [facility] Thin prep Papanicolaou smear with manual screeningOrdered By: Queta Cortez on 12-27-2023 Thin prep Papanicolaou smear with manual screening 4 5-15 [facility] Whole blood hemoglobin A1c/t otal hemoglobin ratio (mass fraction)Ordered By: Nestor Bartlett on 12-27-2023 HbA1c (Bld) [Mass fraction] 9.4 % 3.8-5.6 [facility] Comment on above: Normal < 5.7 % Predi abetic 5.7 - 6.4 % Diabetic >or= 6.5 % Please note range changes. Absolute lymphocyte countOrd ered By: Ramone Smiley on 10-26-2023 Lymphocytes Auto (Unsp spec) [#/Vol] 2.86 10*3/uL 0.83-4.51 [facility] Automated lymphocyte count a s percentage of total leukocytesOrdered By: Ramone Smiley on 10-26-2023 Lymphocytes/100 WBC Auto (Unsp spec) 31.9 % 19-41 [facility] Basophil percentageOrdered B y: Ramone Smiley on 10-26-2023 Basophils/100 WBC (Bld) 0.6 % 0-1 [facility] Bilirubin [Mass/Vol] 0.30 mg/dL 0.20-1.00 [facility] Comment on above: For patients on eltr ombopag therapy, use of Dimension [place] TBIL is not recommended. Chloride [Moles/Vol] 101 mmol/L 98-107 [facility] Eosinophils/100 WBC (Bld) 2.6 % 0-5 [facility] Glucose [Mass/Vol] 135 mg/dL 74-106 [facility] Comment on above: Fasting Glucose resu lt greater than or equal to 126 mg/dL suggests DIABETES MELLITUS per A.D.A. criteria. Hemoglobin (Bld) [Mass/Vol] 10.9 g/dL 12.0-15.0 [facility] Monocytes/100 WBC (Bld) 8.0 % 0-10 [facility] Neutrophils (Bld) [#/Vol] 5.1 10*3/uL 2.0-7.7 [facility] Neutrophils/100 WBC (Bld) 56.6 % 47-70 [facility] Potassium [Moles/Vol] 4.5 mmol/L 3.5-5.1 [facility] Protein [Mass/Vol] 8.6 g/dL 6.4-8.2 [facility] Sodium [Moles/Vol] 134 mmol/L 136-145 [facility] WBC (Bld) [#/Vol] 9.0 10*3/uL 4.4-11.0 [facility] Determination of erythrocyte mean corpuscular volume (MCV)Ordered By: Ramone Smiley on 10-26-2023 MCV (RBC) [Entitic vol] 85.8 fL 81-99 [facility] Erythrocyte distribution wid th ratioOrdered By: Ramone Smiley on 10-26-2023 Erythrocyte distribution width (RBC) [Ratio] 17.5 % 11.6-14.6 [facility] Erythrocyte distribution wid th standard deviationOrdered By: Ramone Smiley on 10-26-2023 Erythrocyte distribution width (RBC) [Entitic vol] 55.2 fL 35.1-43.9 [facility] Hematocrit Auto (Bld) [Volum e fraction]Ordered By: Ramone Smiley on 10-26-2023 Hematocrit (Bld) [Volume fraction] 36.2 % 37-47 [facility] Immature granulocytes/100 WB C Auto (Bld)Ordered By: Ramone Smiley on 10-26-2023 Immature granulocytes/100 WBC (Bld) 0.300 % 0.0-0.9 [facility] Comment on above: IG% - Immature Granu locytes (promyelocytes, myelocytes and metamyelocytes) > 1% indicates that a LEFT SHIFT is Present. Laboratory - Chemistry and C hemistry - challengeOrdered By: Ramone Smiley on 10-26-2023 Albumin/Globulin [Mass ratio] 0.6 {ratio} 0.9-2.4 [facility] ALP [Catalytic activity/Vol] 109 U/L 45-117 [facility] ALT [Catalytic activity/Vol] 17 U/L 13-56 [facility] CO2 [Moles/Vol] 27.0 mmol/L 21.0-32.0 [facility] Cobalamin (Vitamin B12) [Mass/Vol] 654 pg/mL 211-911 [facility] Ferritin [Mass/Vol] 99 ng/mL 8-252 [facility] Globulin (S) [Mass/Vol] 5.4 g/dL 2.2-4.2 [facility] Urea nitrogen/Creatinine [Mass ratio] 17.6 mg/mg 10-20 [facility] Laboratory - Hematology and Cell countsOrdered By: Ramone Smiley on 10-26-2023 MCH (RBC) [Entitic mass] 25.8 pg 27.0-32.0 [facility] MCHC (RBC) [Mass/Vol] 30.1 g/dL 32-36 [facility] Nucleated RBC/100 WBC (Bld) [Ratio] 0 % 0-5 [facility] Platelet mean volume (Bld) [Entitic vol] 11.6 fL 6.2-12.0 [facility] Platelets (Bld) [#/Vol] 268 10*3/uL 150-450 [facility] No Panel InformationOrdered By: Ramone Smiley on 10-26-2023 Estimated GFR (MDRD) Amer 67 mL/min >60 [facility] Comment on above: GFR Calc Estimated GFR (MDRD) Non-Af Amer 55 mL/min >60 [facility] Comment on above: Non- GFR Calc Folate 23.70 ng/mL 3.1-55.4 [facility] Vitamin D 25-Hydroxy 34.5 ng/mL [facility] Comment on above: Vitamin D 25(OH) Sta tus Range Deficiency <20 ng/mL (50nmol/L) Insufficiency 20 - 30 ng/mL (50 - 75 nmol/L) Sufficiency 30 - 100 ng/mL (75 - 250 nmol/L) Toxicity >100 ng/mL (>250 nmol/L) RBC Auto (Bld) [#/Vol]Ordere d By: Ramone Smiley on 10-26-2023 RBC (Bld) [#/Vol] 4.22 10*6/uL 4.2-5.4 [facility] Serum or plasma calcium melanie urement (mass/volume)Ordered By: Ramone Smiley on 10-26-2023 Calcium [Mass/Vol] 11.2 mg/dL 8.5-10.1 [facility] Serum or plasma creatinine m easurement (mass/volume)Ordered By: Ramone Smiley on 10-26-2023 Creatinine [Mass/Vol] 1.02 mg/dL 0.55-1.02 [facility] Comment on above: The validity of the calculated GFR & GFRAA in patients over 70 years has not been determined. Clinical correlation is essential. Serum or plasma thyroid stim ulating hormone (TSH) measurement (units/volume)Ordered By: Ramone Smiley on 10-26-2023 TSH Qn 0.66 uIU/mL 0.358-3.74 [facility] Serum or plasma urea nitroge n measurement (mass/volume)Ordered By: Ramone Smiley on 10-26-2023 Urea nitrogen [Mass/Vol] 18 mg/dL 7-18 [facility] Thin prep Papanicolaou smear with manual screeningOrdered By: Ramone Smiley on 10-26-2023 Thin prep Papanicolaou smear with manual screening 3.2 g/dL 3.2-5.0 [facility] Thin prep Papanicolaou smear with manual screening 18 U/L 15-37 [facility] Thin prep Papanicolaou smear with manual screening 6 5-15 [facility] Whole blood hemoglobin A1c/t otal hemoglobin ratio (mass fraction)Ordered By: Ramone Smiley on 10-26-2023 HbA1c (Bld) [Mass fraction] 8.2 % 3.8-5.6 [facility] Comment on above: Normal < 5.7 % Predi abetic 5.7 - 6.4 % Diabetic >or= 6.5 % Please note range changes. Basophil percentageOrdered B y: Nestor Bartlett on 08-17-2023 Chloride [Moles/Vol] 105 mmol/L 98-107 [facility] Glucose [Mass/Vol] 167 mg/dL 74-106 [facility] Comment on above: Fasting Glucose resu lt greater than or equal to 126 mg/dL suggests DIABETES MELLITUS per A.D.A. criteria. Potassium [Moles/Vol] 4.9 mmol/L 3.5-5.1 [facility] Sodium [Moles/Vol] 139 mmol/L 136-145 [facility] WBC (Bld) [#/Vol] 8.4 10*3/uL 4.4-11.0 [facility] Blood erythrocytes count (nu mber/volume)Ordered By: Nestor Bartlett on 08-17-2023 RBC (Bld) [#/Vol] 3.41 10*6/uL 4.2-5.4 [facility] Blood hemoglobin measurement (mass/volume)Ordered By: Nestor Bartlett on 08-17-2023 Hemoglobin (Bld) [Mass/Vol] 8.9 g/dL 12.0-15.0 [facility] Blood platelet mean volumeOr dered By: Nestor Bartlett on 08-17-2023 Platelet mean volume (Bld) [Entitic vol] 10.4 fL 6.2-12.0 [facility] Determination of erythrocyte mean corpuscular volume (MCV)Ordered By: Nestor Bartlett on 08-17-2023 MCV (RBC) [Entitic vol] 84.5 fL 81-99 [facility] Glucose Glucometer (BldC) [M ass/Vol]Ordered By: Sandeep Denson on 08-17-2023 Glucose [Mass/Vol] 267 mg/dL 74-106 [facility] Comment on above: MANAGEMENT OF PATIEN T CARE PER NURSING PROTOCOL Hematocrit Auto (Bld) [Volum e fraction]Ordered By: Nestor Bartlett on 08-17-2023 Hematocrit (Bld) [Volume fraction] 28.8 % 37-47 [facility] Laboratory - Chemistry and C hemistry - challengeOrdered By: Nestor Bartlett on 08-17-2023 CO2 [Moles/Vol] 30.0 mmol/L 21.0-32.0 [facility] Urea nitrogen/Creatinine [Mass ratio] 19.9 mg/mg 10-20 [facility] Laboratory - Hematology and Cell countsOrdered By: Nestor Batrlett on 08-17-2023 Erythrocyte distribution width (RBC) [Entitic vol] 55.6 fL 35.1-43.9 [facility] Erythrocyte distribution width (RBC) [Ratio] 17.9 % 11.6-14.6 [facility] MCH (RBC) [Entitic mass] 26.1 pg 27.0-32.0 [facility] MCHC Auto (RBC) [Mass/Vol]Or dered By: Nestor Bartlett on 08-17-2023 MCHC (RBC) [Mass/Vol] 30.9 g/dL 32-36 [facility] No Panel InformationOrdered By: Nestor Bartlett on 08-17-2023 Estimated Creatinine Clearance Calc 41.47 ml/min [facility] Estimated GFR (MDRD) Amer 77 mL/min >60 [facility] Comment on above: GFR Calc Estimated GFR (MDRD) Non-Af Amer 64 mL/min >60 [facility] Comment on above: Non- GFR Calc Platelets bldOrdered By: Neida Bartlett on 08-17-2023 Platelets (Bld) [#/Vol] 480 10*3/uL 150-450 [facility] Serum or plasma calcium melanie urement (mass/volume)Ordered By: Nestor Bartlett on 08-17-2023 Calcium [Mass/Vol] 10.6 mg/dL 8.5-10.1 [facility] Serum or plasma creatinine m easurement (mass/volume)Ordered By: Nestor Bartlett on 08-17-2023 Creatinine [Mass/Vol] 0.91 mg/dL 0.55-1.02 [facility] Comment on above: The validity of the calculated GFR & GFRAA in patients over 70 years has not been determined. Clinical correlation is essential. Serum or plasma urea nitroge n measurement (mass/volume)Ordered By: Nestor Bartlett on 08-17-2023 Urea nitrogen [Mass/Vol] 18 mg/dL - [facility] Thin prep Papanicolaou smear with manual screeningOrdered By: Nestor Bartlett on 08-17-2023 Thin prep Papanicolaou smear with manual screening 4 5-15 [facility] Absolute lymphocyte countOrd ered By: Heydi Amaya on 08-14-2023 Lymphocytes Auto (Unsp spec) [#/Vol] 1.25 10*3/uL 0.83-4.51 [facility] Basophil percentageOrdered B y: Heydi Amaya on 08-14-2023 Basophil percentage 1.7 mg/dL 2.5-4.9 [facility] Basophils/100 WBC (Bld) 0.3 % 0-1 [facility] Eosinophils/100 WBC (Bld) 0.6 % 0-5 [facility] Neutrophils (Bld) [#/Vol] 9.0 10*3/uL 2.0-7.7 [facility] Neutrophils/100 WBC (Bld) 79.7 % 47-70 [facility] Blood lymphocytes/100 leukoc ytesOrdered By: Heydi Amaya on 08-14-2023 Lymphocytes/100 WBC (Bld) 11.1 % 19-41 [facility] Blood monocytes/100 leukocyt esOrdered By: Heydi Amaya on 08-14-2023 Monocytes/100 WBC (Bld) 6.1 % 0-10 [facility] Iron measurement (mass/mass) Ordered By: Nestor Bartlett on 08-14-2023 Iron (Unsp spec) [Mass/Mass] 14 ug/dL 50-170 [facility] Laboratory - Chemistry and C hemistry - challengeOrdered By: Nestor Bartlett on 08-14-2023 Cobalamin (Vitamin B12) [Mass/Vol] 250 pg/mL 211-911 [facility] Laboratory - Chemistry and C hemistry - challengeOrdered By: Heydi Amaya on 08-14-2023 Free T4 [Mass/Vol] 1.51 ng/dL 0.76-1.46 [facility] Magnesium [Mass/Vol] 2.1 mg/dL 1.6-2.6 [facility] Laboratory - Hematology and Cell countsOrdered By: Heydi Amaya on 08-14-2023 Immature granulocytes/100 WBC (Bld) 2.200 % 0.0-0.9 [facility] Comment on above: IG% - Immature Granu locytes (promyelocytes, myelocytes and metamyelocytes) > 1% indicates that a LEFT SHIFT is Present. Nucleated RBC/100 WBC (Bld) [Ratio] 0 % 0-5 [facility] No Panel InformationOrdered By: Heydi Amaya on 08-14-2023 Free Triiodothyronine (T3) pg/dL 1.9 pg/mL 2.18-3.98 [facility] Parathyroid Hormone (Intact) 153.7 pg/mL 18.4-80.1 [facility] Thyroid Stimulating Hormone (TSH) 0.01 uIU/mL 0.358-3.74 [facility] Vitamin D 25-Hydroxy 39.9 ng/mL [facility] Comment on above: Vitamin D 25(OH) Sta tus Range Deficiency <20 ng/mL (50nmol/L) Insufficiency 20 - 30 ng/mL (50 - 75 nmol/L) Sufficiency 30 - 100 ng/mL (75 - 250 nmol/L) Toxicity >100 ng/mL (>250 nmol/L) No Panel InformationOrdered By: Nestor Bartlett on 08-14-2023 Total Iron Binding Capacity 197 ug/dL 250-450 [facility] Serum or plasma ferritin rubina surement (mass/volume)Ordered By: Nestor Bartlett on 08-14-2023 Ferritin [Mass/Vol] 1578 ng/mL 8-252 [facility] Serum or plasma folate measu rement (mass/volume)Ordered By: Nestor Bartlett on 08-14-2023 Folate [Mass/Vol] 2.90 ng/mL 3.1-55.4 [facility] Serum or plasma iron saturat ion measurement (mass fraction)Ordered By: Nestor Bartlett on 08-14-2023 Iron saturation [Mass fraction] 7.1 % 15.0-55.0 [facility] Thin prep Papanicolaou smear with manual screeningOrdered By: Heydi Amaya on 08-14-2023 Thin prep Papanicolaou smear with manual screening 285 mOsm/KG 280-301 [facility] Absolute lymphocyte countOrd ered By: Robert Allison on 08-13-2023 Lymphocytes Auto (Unsp spec) [#/Vol] 1.37 10*3/uL 0.83-4.51 [facility] Basophil percentageOrdered B y: Robert Allison on 08-13-2023 Basophil percentage 10-25 SEEN /hpf 0-5 [facility] Lactate [Moles/Vol] 1.2 mmol/L 0.4-2.0 [facility] Basophils/100 WBC (Bld) 0.3 % 0-1 [facility] Bilirubin [Mass/Vol] 0.60 mg/dL 0.20-1.00 [facility] Comment on above: For patients on eltr ombopag therapy, use of Dimension [place] TBIL is not recommended. Chloride [Moles/Vol] 92 mmol/L 98-107 [facility] Eosinophils/100 WBC (Bld) 0.1 % 0-5 [facility] Glucose [Mass/Vol] 212 mg/dL 74-106 [facility] Comment on above: Glucose result great er than or equal to 200 mg/dLsuggests DIABETES MELLITUS per A.D.A. criteria. Neutrophils (Bld) [#/Vol] 12.1 10*3/uL 2.0-7.7 [facility] Neutrophils/100 WBC (Bld) 82.7 % 47-70 [facility] Potassium [Moles/Vol] 3.8 mmol/L 3.5-5.1 [facility] Comment on above: Moderate Hemolysis, Result may be falsely increased. Protein [Mass/Vol] 7.8 g/dL 6.4-8.2 [facility] Sodium [Moles/Vol] 127 mmol/L 136-145 [facility] WBC (Bld) [#/Vol] 14.7 10*3/uL 4.4-11.0 [facility] Bilirubin Test strip Ql (U)O rdered By: Robert Allison on 08-13-2023 Bilirubin Ql (U) Negative Negative [facility] Blood erythrocytes count (nu mber/volume)Ordered By: Robert Allison on 08-13-2023 RBC (Bld) [#/Vol] 3.83 10*6/uL 4.2-5.4 [facility] Blood hemoglobin measurement (mass/volume)Ordered By: Robert Allison on 08-13-2023 Hemoglobin (Bld) [Mass/Vol] 10.0 g/dL 12.0-15.0 [facility] Blood lymphocytes/100 leukoc ytesOrdered By: Robert Allison on 08-13-2023 Lymphocytes/100 WBC (Bld) 9.4 % 19-41 [facility] Blood monocytes/100 leukocyt esOrdered By: Robert Allison on 08-13-2023 Monocytes/100 WBC (Bld) 6.1 % 0-10 [facility] Blood platelet mean volumeOr dered By: Robert Allison on 08-13-2023 Platelet mean volume (Bld) [Entitic vol] 10.8 fL 6.2-12.0 [facility] Culture, urineOrdered By: Ester Allison on 08-13-2023 Bacteria identified Cx Nom (U) Klebsiella pneumoniae sp pneum [facility] Determination of erythrocyte mean corpuscular volume (MCV)Ordered By: Robert Allison on 08-13-2023 MCV (RBC) [Entitic vol] 85.1 fL 81-99 [facility] Hematocrit Auto (Bld) [Volum e fraction]Ordered By: Robert Allison on 08-13-2023 Hematocrit (Bld) [Volume fraction] 32.6 % 37-47 [facility] Influenza virus A and B and SARS-CoV-2 (COVID-19) Ag panel - Upper respiratory specimOrdered By: Robert Allison on 08-13-2023 SARS-CoV-2 (COVID-19) RNA BEBETO+probe Ql (Resp) [facility] Ketones Test strip Ql (U)Ord ered By: Robert Allison on 08-13-2023 Ketones Ql (U) 50 mg/dl Negative [facility] Laboratory - Chemistry and C hemistry - challengeOrdered By: Heydi Amyaa on 08-13-2023 Sodium (U) [Moles/Vol] 24 mmol/L Not Establ. [facility] Laboratory - Chemistry and C hemistry - challengeOrdered By: Robert Allison on 08-13-2023 ALP [Catalytic activity/Vol] 105 U/L 45-117 [facility] ALT [Catalytic activity/Vol] 29 U/L 13-56 [facility] CO2 [Moles/Vol] 23.0 mmol/L 21.0-32.0 [facility] Globulin (S) [Mass/Vol] 5.6 g/dL 2.2-4.2 [facility] Urea nitrogen/Creatinine [Mass ratio] 26.3 mg/mg 10-20 [facility] Laboratory - Hematology and Cell countsOrdered By: Robert Allison on 08-13-2023 Erythrocyte distribution width (RBC) [Entitic vol] 53.7 fL 35.1-43.9 [facility] Erythrocyte distribution width (RBC) [Ratio] 17.2 % 11.6-14.6 [facility] Immature granulocytes/100 WBC (Bld) 1.400 % 0.0-0.9 [facility] Comment on above: IG% - Immature Granu locytes (promyelocytes, myelocytes and metamyelocytes) > 1% indicates that a LEFT SHIFT is Present. MCH (RBC) [Entitic mass] 26.1 pg 27.0-32.0 [facility] Nucleated RBC/100 WBC (Bld) [Ratio] 0 % 0-5 [facility] Laboratory - Microbiology an d Antimicrobial susceptibilityOrdered By: Robert Allison on 08-13-2023 Bacteria identified Cx Nom (Bld) GNR lactose hide or skin buffer [facility] MCHC Auto (RBC) [Mass/Vol]Or dered By: Robert Allison on 08-13-2023 MCHC (RBC) [Mass/Vol] 30.7 g/dL 32-36 [facility] Mucus LM Ql (Urine sed)Order ed By: Robert Allison on 08-13-2023 Mucus Ql (Urine sed) 0 SEEN /hpf [facility] Nitrite Test strip Ql (U)Ord ered By: Robert Allison on 08-13-2023 Nitrite Ql (U) Negative Negative [facility] No Panel InformationOrdered By: Heydi Amaya on 08-13-2023 Urine Potassium 8.0 mmol/L Not Establ. [facility] Urine Urea Nitrogen 334 mg/dL NO RANGE EST. [facility] No Panel InformationOrdered By: Robert Allison on 08-13-2023 Estimated Creatinine Clearance Calc 31.98 ml/min [facility] Estimated GFR (MDRD) Amer 57 mL/min >60 [facility] Comment on above: GFR Calc Estimated GFR (MDRD) Non-Af Amer 47 mL/min >60 [facility] Comment on above: Non- GFR Calc Troponin I High Sensitivity 39 pg/mL 3.0-54.0 [facility] Comment on above: Please Note: New Rosi t Units and Gender Specific Reference Ranges. For more information see Policy Stat Procedure [place] High Sensitivity Troponin (TNIH) and attachments. Platelets bldOrdered By: Rem us Allison on 08-13-2023 Platelets (Bld) [#/Vol] 412 10*3/uL 150-450 [facility] Protein Test strip Ql (U)Ord ered By: [facility] on 08-13-2023 Protein Ql (U) 30 mg/dl Negative [facility] Serum or plasma albumin melanie urement (mass/volume)Ordered By: [facility] on 08-[facility]2023 Albumin [Mass/Vol] 2.2 g/dL 3.2-5.0 [facility] Serum or plasma albumin/glob ulin mass ratioOrdered By: [facility] on 08-13-2023 Albumin/Globulin [Mass ratio] 0.4 {ratio} 0.9-2.4 [facility] Serum or plasma calcium melanie urement (mass/volume)Ordered By: [facility] on 08-13-2023 Calcium [Mass/Vol] 10.5 mg/dL 8.5-10.1 [facility] Serum or plasma creatinine m easurement (mass/volume)Ordered By: [facility] on 08-13-2023 Creatinine [Mass/Vol] 1.18 mg/dL 0.55-1.02 [facility] Comment on above: The validity of the calculated GFR & GFRAA in patients over 70 years has not been determined. Clinical correlation is essential. Serum or plasma urea nitroge n measurement (mass/volume)Ordered By: [facility] on 08-13-2023 Urea nitrogen [Mass/Vol] 31 mg/dL 7-18 [facility] Squamous epithelial cells de tection in urine sediment by light microscopyOrdered By: Robert Espinomasood on 08-13-2023 Epithelial cells.squamous LM Ql (Urine sed) 0 SEEN /hpf 5-10 [facility] Thin prep Papanicolaou smear with manual screeningOrdered By: Heydi Amaya on 08-13-2023 Thin prep Papanicolaou smear with manual screening 20 mmol/L Not Establ. [facility] Thin prep Papanicolaou smear with manual screeningOrdered By: Robert Allison on 08-13-2023 Thin prep Papanicolaou smear with manual screening 36 U/L 15 [facility] Comment on above: Moderate Hemolysis, Result may be falsely increased. Thin prep Papanicolaou smear with manual screening 08 04-15 [facility] Upper respiratory specimen i nfluenza A virus, influenza B virus, and severe acute resOrdered By: Robert Allison on 08-13-2023 Upper respiratory specimen influenza A virus, influenza B virus, and severe acute res [facility] Urine blood detectionOrdered By: Robert Allison on 08-13-2023 RBC Ql (U) 50 /ul Negative [facility] RBC Ql (U) 0-5 SEEN /hpf 0-5 [facility] Urine clarityOrdered By: Harriet Allison on 08-13-2023 Clarity (U) Sl. Cloudy Clear [facility] Urine color determinationOrd ered By: Robert Allison on 08-13-2023 Color (U) Yellow Yellow [facility] Urine creatinine measurement (mass/volume)Ordered By: Heydi Amaya on 08-13-2023 Creatinine (U) [Mass/Vol] 37.60 mg/dL NO RANGE EST. [facility] Urine glucose detectionOrder ed By: Robert Allison on 08-13-2023 Glucose Ql (U) 1000 mg/dl Normal [facility] Urine leukocyte esterase det ection by dipstickOrdered By: Robert Allison on 08-13-2023 Leukocyte esterase Test strip Ql (U) 500 /ul Negative [facility] Urine osmolality measurement Ordered By: Heydi Amaya on 08-13-2023 Osmolality (U) [Osmolality] 269 mOsm/KG >50 [facility] Comment on above: Normal Urine Referen ce Ranges Random: 50 - 1200 mOsm/kg H20 depending on fluid intake Random: >850 mOsm/kg after 12 hour fluid restriction 24 hour: ~300 - 900 mOsm/kg H2O Urine pHOrdered By: Robert sibley on 08-13-2023 pH (U) 5.0 [pH] 5.0 - 8.0 [facility] Urine sediment bacteria coun t by microscopy (number/high power field)Ordered By: Robert Espinomasood on 08-13-2023 Bacteria LM.HPF (Urine sed) [#/Area] 3 /[HPF] None Seen [facility] Urine specific gravity measu rementOrdered By: Robert Allison on 08-13-2023 Specific gravity (U) [Rel density] 1.015 1.002-1.030 [facility] Urobilinogen Auto test strip Ql (U)Ordered By: Robert Espinomasood on 08-13-2023 Urobilinogen Ql (U) Normal mg/dl Normal [facility] Absolute lymphocyte countOrd ered By: Winston Gill on 07-18-2023 Lymphocytes Auto (Unsp spec) [#/Vol] 0.92 10*3/uL 0.83-4.51 [facility] Basophil percentageOrdered B y: Winston Gill on 07-18-2023 Basophil percentage >100 SEEN /hpf 0-5 [facility] Basophils/100 WBC (Bld) 0.4 % 0-1 [facility] Bilirubin [Mass/Vol] 0.40 mg/dL 0.20-1.00 [facility] Comment on above: For patients on eltr ombopag therapy, use of Dimension [place] TBIL is not recommended. Chloride [Moles/Vol] 95 mmol/L 98-107 [facility] Eosinophils/100 WBC (Bld) 0.7 % 0-5 [facility] Glucose [Mass/Vol] 139 mg/dL 74-106 [facility] Comment on above: Fasting Glucose resu lt greater than or equal to 126 mg/dL suggests DIABETES MELLITUS per A.D.A. criteria. Neutrophils (Bld) [#/Vol] 5.4 10*3/uL 2.0-7.7 [facility] Neutrophils/100 WBC (Bld) 76.5 % 47-70 [facility] Potassium [Moles/Vol] 3.7 mmol/L 3.5-5.1 [facility] Protein [Mass/Vol] 7.4 g/dL 6.4-8.2 [facility] Sodium [Moles/Vol] 131 mmol/L 136-145 [facility] WBC (Bld) [#/Vol] 7.0 10*3/uL 4.4-11.0 [facility] Bilirubin Test strip Ql (U)O rdered By: Winston Gill on 07-18-2023 Bilirubin Ql (U) Negative Negative [facility] Blood erythrocytes count (nu mber/volume)Ordered By: Winston Gill on 07-18-2023 RBC (Bld) [#/Vol] 3.85 10*6/uL 4.2-5.4 [facility] Blood hemoglobin measurement (mass/volume)Ordered By: Winston Gill on 07-18-2023 Hemoglobin (Bld) [Mass/Vol] 10.8 g/dL 12.0-15.0 [facility] Blood lymphocytes/100 leukoc ytesOrdered By: Winston Gill on 07-18-2023 Lymphocytes/100 WBC (Bld) 13.1 % 19-41 [facility] Blood monocytes/100 leukocyt esOrdered By: Winston Gill on 07-18-2023 Monocytes/100 WBC (Bld) 8.0 % 0-10 [facility] Blood platelet mean volumeOr dered By: Winston Gill on 07-18-2023 Platelet mean volume (Bld) [Entitic vol] 10.0 fL 6.2-12.0 [facility] Culture, urineOrdered By: Devyn Rea on 07-18-2023 Bacteria identified Cx Nom (U) Escherichia coli [facility] Bacteria identified Cx Nom (U) Klebsiella pneumoniae sp pneum [facility] Determination of erythrocyte mean corpuscular volume (MCV)Ordered By: Winston Gill on 07-18-2023 MCV (RBC) [Entitic vol] 87.0 fL 81-99 [facility] Hematocrit Auto (Bld) [Volum e fraction]Ordered By: Winston Gill on 07-18-2023 Hematocrit (Bld) [Volume fraction] 33.5 % 37-47 [facility] Ketones Test strip Ql (U)Ord ered By: Winston Gill on 07-18-2023 Ketones Ql (U) 50 mg/dl Negative [facility] Laboratory - Chemistry and C hemistry - challengeOrdered By: Winston Gill on 07-18-2023 ALP [Catalytic activity/Vol] 93 U/L 45-117 [facility] ALT [Catalytic activity/Vol] 13 U/L 13-56 [facility] CO2 [Moles/Vol] 27.0 mmol/L 21.0-32.0 [facility] Globulin (S) [Mass/Vol] 4.8 g/dL 2.2-4.2 [facility] Urea nitrogen/Creatinine [Mass ratio] 15.6 mg/mg 10-20 [facility] Laboratory - Hematology and Cell countsOrdered By: Winston Gill on 07-18-2023 Erythrocyte distribution width (RBC) [Entitic vol] 52.4 fL 35.1-43.9 [facility] Erythrocyte distribution width (RBC) [Ratio] 16.4 % 11.6-14.6 [facility] Immature granulocytes/100 WBC (Bld) 1.300 % 0.0-0.9 [facility] Comment on above: IG% - Immature Granu locytes (promyelocytes, myelocytes and metamyelocytes) > 1% indicates that a LEFT SHIFT is Present. MCH (RBC) [Entitic mass] 28.1 pg 27.0-32.0 [facility] Nucleated RBC/100 WBC (Bld) [Ratio] 0 % 0-5 [facility] MCHC Auto (RBC) [Mass/Vol]Or dered By: Winston Gill on 07-18-2023 MCHC (RBC) [Mass/Vol] 32.2 g/dL 32-36 [facility] Mucus LM Ql (Urine sed)Order ed By: Winston Gill on 07-18-2023 Mucus Ql (Urine sed) 0 SEEN /hpf [facility] Nitrite Test strip Ql (U)Ord ered By: Winston Gill on 07-18-2023 Nitrite Ql (U) Negative Negative [facility] No Panel InformationOrdered By: Winston Gill on 07-18-2023 Estimated Creatinine Clearance Calc 45.46 ml/min [facility] Estimated GFR (MDRD) Amer 85 mL/min >60 [facility] Comment on above: GFR Calc Estimated GFR (MDRD) Non-Af Amer 70 mL/min >60 [facility] Comment on above: Non- GFR Calc Platelets bldOrdered By: Pet richar Gill on 07-18-2023 Platelets (Bld) [#/Vol] 370 10*3/uL 150-450 [facility] Protein Test strip Ql (U)Ord ered By: Winston Gill on 07-18-2023 Protein Ql (U) 100 mg/dl Negative [facility] Serum or plasma albumin melanie urement (mass/volume)Ordered By: Winston Gill on 07-18-2023 Albumin [Mass/Vol] 2.6 g/dL 3.2-5.0 [facility] Serum or plasma albumin/glob ulin mass ratioOrdered By: Winston Gill on 07-18-2023 Albumin/Globulin [Mass ratio] 0.5 {ratio} 0.9-2.4 [facility] Serum or plasma calcium melanie urement (mass/volume)Ordered By: Winston Gill on 07-18-2023 Calcium [Mass/Vol] 10.3 mg/dL 8.5-10.1 [facility] Serum or plasma creatinine m easurement (mass/volume)Ordered By: Winston Gill on 07-18-2023 Creatinine [Mass/Vol] 0.83 mg/dL 0.55-1.02 [facility] Comment on above: The validity of the calculated GFR & GFRAA in patients over 70 years has not been determined. Clinical correlation is essential. Serum or plasma urea nitroge n measurement (mass/volume)Ordered By: Winston Gill on 07-18-2023 Urea nitrogen [Mass/Vol] 13 mg/dL 03-17 [facility] Squamous epithelial cells de tection in urine sediment by light microscopyOrdered By: Winston Gill on 07-18-2023 Epithelial cells.squamous LM Ql (Urine sed) 5-10 SEEN /hpf 5-10 [facility] Thin prep Papanicolaou smear with manual screeningOrdered By: Winston Gill on 07-18-2023 Thin prep Papanicolaou smear with manual screening 26 U/L 15-37 [facility] Thin prep Papanicolaou smear with manual screening 9 5-15 [facility] Urine blood detectionOrdered By: Winston Gill on 07-18-2023 RBC Ql (U) 50 /ul Negative [facility] RBC Ql (U) 0-5 SEEN /hpf 0-5 [facility] Urine clarityOrdered By: Ter Gill on 07-18-2023 Clarity (U) Cloudy Clear [facility] Urine color determinationOrd ered By: Winston Gill on 07-18-2023 Color (U) Yellow Yellow [facility] Urine glucose detectionOrder ed By: Winston Gill on 07-18-2023 Glucose Ql (U) 1000 mg/dl Normal [facility] Urine leukocyte esterase det ection by dipstickOrdered By: Winston Gill on 07-18-2023 Leukocyte esterase Test strip Ql (U) 500 /ul Negative [facility] Urine pHOrdered By: Winston castillo on 07-18-2023 pH (U) 5.0 [pH] 5.0 - 8.0 [facility] Urine sediment bacteria coun t by microscopy (number/high power field)Ordered By: Winston Gill on 07-18-2023 Bacteria LM.HPF (Urine sed) [#/Area] 3 /[HPF] None Seen [facility] Urine sediment leukocyte lisandro t count by microscopy (number/low power field)Ordered By: Winston Gill on 07-18-2023 WBC casts LM.LPF (Urine sed) [#/Area] 0-5 SEEN /lpf None Seen [facility] Urine specific gravity measu rementOrdered By: Winston Gill on 07-18-2023 Specific gravity (U) [Rel density] 1.020 1.002-1.030 [facility] Urobilinogen Auto test strip Ql (U)Ordered By: Winston Gill on 07-18-2023 Urobilinogen Ql (U) 1 mg/dl Normal [facility] No Panel Informationon 07-15 POC SARS CoV-2 Antigen Negative [facility] Amorphous sediment detection in urine sediment by light microscopyOrdered By: Cheryl Mendez on 06-01-2023 Amorphous sediment LM Ql (Urine sed) 1+ URATE [facility] Basophil percentageOrdered B y: Cheryl Mendez on 06-01-2023 Basophil percentage 5-10 SEEN /hpf 0-5 [facility] Bilirubin Test strip Ql (U)O rdered By: Cheryl Mendez on 06-01-2023 Bilirubin Ql (U) Negative Negative [facility] Ketones Test strip Ql (U)Ord ered By: Cheryl Mendez on 06-01-2023 Ketones Ql (U) Negative Negative [facility] Mucus LM Ql (Urine sed)Order ed By: Cheryl Mendez on 06-01-2023 Mucus Ql (Urine sed) 0 SEEN /hpf [facility] Nitrite Test strip Ql (U)Ord ered By: Cheryl Mendez on 06-01-2023 Nitrite Ql (U) Negative Negative [facility] No Panel InformationOrdered By: Cheryl Mendez on 06-01-2023 Urine Microalbumin/Creatinine Ratio 173.1 mg/g CRE <30 [facility] Protein Test strip Ql (U)Ord ered By: Cheryl Mendez on 06-01-2023 Protein Ql (U) 15 mg/dl Negative [facility] Squamous epithelial cells de tection in urine sediment by light microscopyOrdered By: Cheryl Mendez on 06-01-2023 Epithelial cells.squamous LM Ql (Urine sed) 0-5 SEEN /hpf 5-10 [facility] Thin prep Papanicolaou smear with manual screeningOrdered By: Cheryl Mendez on 06-01-2023 Thin prep Papanicolaou smear with manual screening 98.3 mg/L NO RANGE EST. [facility] Urine blood detectionOrdered By: Cheryl Mendez on 06-01-2023 RBC Ql (U) 25 /ul Negative [facility] RBC Ql (U) 0-5 SEEN /hpf 0-5 [facility] Urine clarityOrdered By: Dyana Mendez on 06-01-2023 Clarity (U) Cloudy Clear [facility] Urine color determinationOrd ered By: Cheryl Mendez on 06-01-2023 Color (U) Yellow Yellow [facility] Urine creatinine measurement (mass/volume)Ordered By: Cheryl Mendez on 06-01-2023 Creatinine (U) [Mass/Vol] 56.80 mg/dL NO RANGE EST. [facility] Urine glucose detectionOrder ed By: Cheryl Mendez on 06-01-2023 Glucose Ql (U) 1000 mg/dl Normal [facility] Urine leukocyte esterase det ection by dipstickOrdered By: Cheryl Mendez on 06-01-2023 Leukocyte esterase Test strip Ql (U) 100 /ul Negative [facility] Urine pHOrdered By: Nikki Mendez on 06-01-2023 pH (U) 5.0 [pH] 5.0 - 8.0 [facility] Urine sediment bacteria coun t by microscopy (number/high power field)Ordered By: Cheryl Mendez on 06-01-2023 Bacteria LM.HPF (Urine sed) [#/Area] 3 /[HPF] None Seen [facility] Urine specific gravity measu rementOrdered By: Cheryl Mendez on 06-01-2023 Specific gravity (U) [Rel density] 1.015 1.002-1.030 [facility] Urobilinogen Auto test strip Ql (U)Ordered By: Cheryl Mendez on 06-01-2023 Urobilinogen Ql (U) Normal mg/dl Normal [facility] Basophil percentageOrdered B y: Cheryl Mendez on 05-27-2023 Basophil percentage 2.7 mg/dL 2.5-4.9 [facility] Chloride [Moles/Vol] 102 mmol/L 98-107 [facility] Glucose [Mass/Vol] 220 mg/dL 74-106 [facility] Comment on above: Glucose result great er than or equal to 200 mg/dLsuggests DIABETES MELLITUS per A.D.A. criteria. Potassium [Moles/Vol] 3.9 mmol/L 3.5-5.1 [facility] Sodium [Moles/Vol] 137 mmol/L 136-145 [facility] Laboratory - Chemistry and C hemistry - challengeOrdered By: Cheryl Mendez on 05-27-2023 CO2 [Moles/Vol] 28.0 mmol/L 21.0-32.0 [facility] Urea nitrogen/Creatinine [Mass ratio] 10.0 mg/mg 10- [facility] No Panel InformationOrdered By: Cheryl Mendez on 05-27-2023 Estimated GFR (MDRD) Amer 89 mL/min >60 [facility] Comment on above: GFR Calc Estimated GFR (MDRD) Non-Af Amer 73 mL/min >60 [facility] Comment on above: Non- GFR Calc Parathyroid Hormone (Intact) 164.3 pg/mL 18.4-80.1 [facility] Vitamin D 25-Hydroxy 45.4 ng/mL [facility] Comment on above: Vitamin D 25(OH) Sta tus Range Deficiency <20 ng/mL (50nmol/L) Insufficiency 20 - 30 ng/mL (50 - 75 nmol/L) Sufficiency 30 - 100 ng/mL (75 - 250 nmol/L) Toxicity >100 ng/mL (>250 nmol/L) Serum or plasma albumin melanie urement (mass/volume)Ordered By: Cheryl Mendez on 05-27-2023 Albumin [Mass/Vol] 2.9 g/dL 3.2-5.0 [facility] Serum or plasma calcium melanie urement (mass/volume)Ordered By: Cheryl Mendez on 05-27-2023 Calcium [Mass/Vol] 10.7 mg/dL 8.5-10.1 [facility] Serum or plasma creatinine m easurement (mass/volume)Ordered By: Cheryl Mendez on 05-27-2023 Creatinine [Mass/Vol] 0.80 mg/dL 0.55-1.02 [facility] Comment on above: The validity of the calculated GFR & GFRAA in patients over 70 years has not been determined. Clinical correlation is essential. Serum or plasma urea nitroge n measurement (mass/volume)Ordered By: Cheryl Mendez on 05-27-2023 Urea nitrogen [Mass/Vol] 8 mg/dL 7-18 [facility] Culture, urineOrdered By: Allan Anguiano on 03-24-2023 Bacteria identified Cx Nom (U) Klebsiella pneumoniae sp pneum [facility] Bacteria identified Cx Nom (U) Klebsiella pneumoniae sp pneum [facility] Absolute lymphocyte countOrd ered By: Dr. Smiley on 01-28-2023 Lymphocytes Auto (Unsp spec) [#/Vol] 3.27 10*3/uL 0.83-4.51 [facility] Absolute lymphocyte countOrd ered By: Dr. Lockwood on 01-28-2023 Lymphocytes Auto (Unsp spec) [#/Vol] 2.27 10*3/uL 0.83-4.51 [facility] Basophil percentageOrdered B y: Dr. Smiley on 01-28-2023 Basophils/100 WBC (Bld) 0.5 % 0-1 [facility] Bilirubin [Mass/Vol] 0.30 mg/dL 0.20-1.00 [facility] Comment on above: For patients on eltr ombopag therapy, use of Dim[place] TBIL is not recommended. Chloride [Moles/Vol] 99 mmol/L 98-107 [facility] Cholesterol [Mass/Vol] 145 mg/dL <200 [facility] Comment on above: <200 mg/dL Desirable 200-240 mg/dL Borderline >240 mg/dL High Risk Eosinophils/100 WBC (Bld) 2.3 % 0-5 [facility] Glucose [Mass/Vol] 182 mg/dL 74-106 [facility] Comment on above: Fasting Glucose resu lt greater than or equal to 126 mg/dL suggests DIABETES MELLITUS per A.D.A. criteria. Neutrophils (Bld) [#/Vol] 3.9 10*3/uL 2.0-7.7 [facility] Neutrophils/100 WBC (Bld) 50.0 % 47-70 [facility] Potassium [Moles/Vol] 3.6 mmol/L 3.5-5.1 [facility] Protein [Mass/Vol] 7.9 g/dL 6.4-8.2 [facility] Sodium [Moles/Vol] 134 mmol/L 136-145 [facility] Triglyceride [Mass/Vol] 119 mg/dL <199 [facility] Comment on above: The drugs N-Acetylcy steine and Metamizole may falsely depress this assay.Serum Triglycerides Reference Interval Normal <150 mg/dL Borderline high 150 - 199 mg/dL High 200 - 499 mg/dL Very High > or = 500 mg/dL WBC (Bld) [#/Vol] 7.7 10*3/uL 4.4-11.0 [facility] Basophil percentageOrdered B y: Dr. Lockwood on 01-28-2023 Basophils/100 WBC (Bld) 0.8 % 0-1 [facility] Chloride [Moles/Vol] 102 mmol/L 98-107 [facility] Eosinophils/100 WBC (Bld) 2.6 % 0-5 [facility] Glucose [Mass/Vol] 137 mg/dL 74-106 [facility] Comment on above: Fasting Glucose resu lt greater than or equal to 126 mg/dL suggests DIABETES MELLITUS per A.D.A. criteria. Neutrophils (Bld) [#/Vol] 3.8 10*3/uL 2.0-7.7 [facility] Neutrophils/100 WBC (Bld) 56.6 % 47-70 [facility] Potassium [Moles/Vol] 3.8 mmol/L 3.5-5.1 [facility] Protein [Mass/Vol] 7.4 g/dL 6.4-8.2 [facility] Sodium [Moles/Vol] 136 mmol/L 136-145 [facility] WBC (Bld) [#/Vol] 6.6 10*3/uL 4.4-11.0 [facility] Blood erythrocytes count (nu mber/volume)Ordered By: Dr. Smiley on 01-28-2023 RBC (Bld) [#/Vol] 4.10 10*6/uL 4.2-5.4 [facility] Blood erythrocytes count (nu mber/volume)Ordered By: Dr. Lockwood on 01-28-2023 RBC (Bld) [#/Vol] 3.83 10*6/uL 4.2-5.4 [facility] Blood hemoglobin measurement (mass/volume)Ordered By: Dr. Smiley on 01-28-2023 Hemoglobin (Bld) [Mass/Vol] 11.5 g/dL 12.0-15.0 [facility] Blood hemoglobin measurement (mass/volume)Ordered By: Dr. Lockwood on 01-28-2023 Hemoglobin (Bld) [Mass/Vol] 11.1 g/dL 12.0-15.0 [facility] Blood lymphocytes/100 leukoc ytesOrdered By: Dr. Smiley on 01-28-2023 Lymphocytes/100 WBC (Bld) 42.3 % - [facility] Blood lymphocytes/100 leukoc ytesOrdered By: Dr. Lockwood on 01-28-2023 Lymphocytes/100 WBC (Bld) 34.2 % - [facility] Blood monocytes/100 leukocyt esOrdered By: Dr. Smiley on 01-28-2023 Monocytes/100 WBC (Bld) 4.8 % 0-10 [facility] Blood monocytes/100 leukocyt esOrdered By: Dr. Lockwood on 01-28-2023 Monocytes/100 WBC (Bld) 5.6 % 0-10 [facility] Blood platelet mean volumeOr dered By: Dr. Smiley on 01-28-2023 Platelet mean volume (Bld) [Entitic vol] 9.8 fL 6.2-12.0 [facility] Blood platelet mean volumeOr dered By: Dr. Lockwood on 01-28-2023 Platelet mean volume (Bld) [Entitic vol] 9.3 fL 6.2-12.0 [facility] Determination of erythrocyte mean corpuscular volume (MCV)Ordered By: Dr. Smiley on 01-28-2023 MCV (RBC) [Entitic vol] 90.7 fL 81-99 [facility] Determination of erythrocyte mean corpuscular volume (MCV)Ordered By: Dr. Lockwood on 01-28-2023 MCV (RBC) [Entitic vol] 87.7 fL 81-99 [facility] Hematocrit Auto (Bld) [Volum e fraction]Ordered By: Dr. Smiley on 01-28-2023 Hematocrit (Bld) [Volume fraction] 37.2 % 37-47 [facility] Hematocrit Auto (Bld) [Volum e fraction]Ordered By: Dr. Lockwood on 01-28-2023 Hematocrit (Bld) [Volume fraction] 33.6 % 37-47 [facility] Laboratory - Chemistry and C hemistry - challengeOrdered By: Dr. Smiley on 01-28-2023 ALP [Catalytic activity/Vol] 153 U/L 45-117 [facility] ALT [Catalytic activity/Vol] 20 U/L 13-56 [facility] CO2 [Moles/Vol] 25.0 mmol/L 21.0-32.0 [facility] Globulin (S) [Mass/Vol] 4.9 g/dL 2.2-4.2 [facility] Urea nitrogen/Creatinine [Mass ratio] 10.7 mg/mg 10-20 [facility] Laboratory - Chemistry and C hemistry - challengeOrdered By: Dr. Lockwood on 01-28-2023 ALP [Catalytic activity/Vol] 140 U/L 45-117 [facility] CO2 [Moles/Vol] 27.0 mmol/L 21.0-32.0 [facility] Free T4 [Mass/Vol] 1.11 ng/dL 0.76-1.46 [facility] Globulin (S) [Mass/Vol] 4.5 g/dL 2.2-4.2 [facility] Urea nitrogen/Creatinine [Mass ratio] 11.5 mg/mg 10-20 [facility] Laboratory - Hematology and Cell countsOrdered By: Dr. Smiley on 01-28-2023 Erythrocyte distribution width (RBC) [Entitic vol] 49.7 fL 35.1-43.9 [facility] Erythrocyte distribution width (RBC) [Ratio] 14.9 % 11.6-14.6 [facility] Immature granulocytes/100 WBC (Bld) 0.100 % 0.0-0.9 [facility] Comment on above: IG% - Immature Granu locytes (promyelocytes, myelocytes and metamyelocytes) > 1% indicates that a LEFT SHIFT is Present. MCH (RBC) [Entitic mass] 28.0 pg 27.0-32.0 [facility] Nucleated RBC/100 WBC (Bld) [Ratio] 0 % 0-5 [facility] Laboratory - Hematology and Cell countsOrdered By: Dr. Lockwood on 01-28-2023 Erythrocyte distribution width (RBC) [Entitic vol] 47.3 fL 35.1-43.9 [facility] Erythrocyte distribution width (RBC) [Ratio] 14.8 % 11.6-14.6 [facility] Immature granulocytes/100 WBC (Bld) 0.200 % 0.0-0.9 [facility] Comment on above: IG% - Immature Granu locytes (promyelocytes, myelocytes and metamyelocytes) > 1% indicates that a LEFT SHIFT is Present. MCH (RBC) [Entitic mass] 29.0 pg 27.0-32.0 [facility] MCHC Auto (RBC) [Mass/Vol]Or dered By: Dr. Smiley on 01-28-2023 MCHC (RBC) [Mass/Vol] 30.9 g/dL - [facility] MCHC Auto (RBC) [Mass/Vol]Or dered By: Dr. Lockwood on 01-28-2023 MCHC (RBC) [Mass/Vol] 33.0 g/dL - [facility] Comment on above: Delta: 30.9 on 01/28-0 No Panel InformationOrdered By: Dr. Lockwood on 01-28-2023 Estimated Creatinine Clearance Calc 37.74 ml/min [facility] Estimated GFR (MDRD) Amer 91 mL/min >60 [facility] Comment on above: GFR Calc Estimated GFR (MDRD) Non-Af Amer 75 mL/min >60 [facility] Comment on above: Non- GFR Calc Free Triiodothyronine (T3) pg/dL 2.9 pg/mL 2.18-3.98 [facility] No Panel InformationOrdered By: Dr. Smiley on 01-28-2023 Estimated GFR (MDRD) Amer 84 mL/min >60 [facility] [facility] Comment on above: GFR Calc Estimated GFR (MDRD) Non-Af Amer 70 mL/min >60 [facility] Comment on above: Non- GFR Calc Parathyroid Hormone (Intact) 112.9 pg/mL 18.4-80.1 [facility] Thyroid Stimulating Hormone (TSH) 0.02 uIU/mL 0.358-3.74 [facility] Vitamin D 25-Hydroxy 66.1 ng/mL [facility] Comment on above: Vitamin D 25(OH) Sta tus Range Deficiency <20 ng/mL (50nmol/L) Insufficiency 20 - 30 ng/mL (50 - 75 nmol/L) Sufficiency 30 - 100 ng/mL (75 - 250 nmol/L) Toxicity >100 ng/mL (>250 nmol/L) Platelets bldOrdered By: Dr. Smiley on 01-28-2023 Platelets (Bld) [#/Vol] 349 10*3/uL 150-450 [facility] Platelets bldOrdered By: Dr. Lockwood on 01-28-2023 Platelets (Bld) [#/Vol] 285 10*3/uL 150-450 [facility] Serum or plasma albumin melanie urement (mass/volume)Ordered By: Dr. Smiley on 01-28-2023 Albumin [Mass/Vol] 3.0 g/dL 3.2-5.0 [facility] Serum or plasma albumin melanie urement (mass/volume)Ordered By: Dr. Lockwood on 01-28-2023 Albumin [Mass/Vol] 2.9 g/dL 3.2-5.0 [facility] Serum or plasma albumin/glob ulin mass ratioOrdered By: Dr. Smiley on 01-28-2023 Albumin/Globulin [Mass ratio] 0.6 {ratio} 0.9-2.4 [facility] Serum or plasma calcium melanie urement (mass/volume)Ordered By: Dr. Smiley on 01-28-2023 Calcium [Mass/Vol] 11.5 mg/dL 8.5-10.1 [facility] Serum or plasma calcium melanie urement (mass/volume)Ordered By: Dr. Lockwood on 01-28-2023 Calcium [Mass/Vol] 11.4 mg/dL 8.5-10.1 [facility] Serum or plasma cholesterol in HDL measurement (mass/volume)Ordered By: Dr. Smiley on 01-28-2023 Cholesterol in HDL [Mass/Vol] 46 mg/dL >40 [facility] Comment on above: The drugs N-Acetylcy steine and Metamizole may falsely depress this assay. Reference Range HDL <40 mg/dL Low HDL Cholesterol HDL >or= 60 mg/dL High HDL Cholesterol Serum or plasma cholesterol in VLDL measurement (mass/volume)Ordered By: Dr. Smilye on 01-28-2023 Cholesterol in VLDL [Mass/Vol] 24 mg/dL 5-40 [facility] Serum or plasma creatinine m easurement (mass/volume)Ordered By: Dr. Smiley on 01-28-2023 Creatinine [Mass/Vol] 0.84 mg/dL 0.55-1.02 [facility] Comment on above: The validity of the calculated GFR & GFRAA in patients over 70 years has not been determined. Clinical correlation is essential. Serum or plasma creatinine m easurement (mass/volume)Ordered By: Dr. Lockwood on 01-28-2023 Creatinine [Mass/Vol] 0.78 mg/dL 0.55-1.02 [facility] Comment on above: The validity of the calculated GFR & GFRAA in patients over 70 years has not been determined. Clinical correlation is essential. Serum or plasma low density lipoprotein (LDL) cholesterol measurement (mass/volume)Ordered By: Dr. Smiley on 01-28-2023 Cholesterol in LDL [Mass/Vol] 75 mg/dL 0-130 [facility] Serum or plasma urea nitroge n measurement (mass/volume)Ordered By: Dr. Smiley on 01-28-2023 Urea nitrogen [Mass/Vol] 9 mg/dL 7-18 [facility] Thin prep Papanicolaou smear with manual screeningOrdered By: Dr. Smiley on 01-28-2023 Thin prep Papanicolaou smear with manual screening 22 U/L 15- [facility] Thin prep Papanicolaou smear with manual screening 10 5-15 [facility] Thin prep Papanicolaou smear with manual screeningOrdered By: Dr. Lockwood on 01-28-2023 Thin prep Papanicolaou smear with manual screening 18 U/L -37 [facility] Thin prep Papanicolaou smear with manual screening 7 5-15 [facility] Whole blood hemoglobin A1c/t otal hemoglobin ratio (mass fraction)Ordered By: Dr. Smiley on 01-28-2023 HbA1c (Bld) [Mass fraction] 7.5 % 3.8-5.6 [facility] Comment on above: Normal < 5.7 % Predi abetic 5.7 - 6.4 % Diabetic >or= 6.5 % Please note range changes. Basophil percentageOrdered B y: Dr. Smiley on 12-09-2022 Bilirubin [Mass/Vol] 0.20 mg/dL 0.20-1.00 [facility] Comment on above: For patients on eltr ombopag therapy, use of [place] TBIL is not recommended. Chloride [Moles/Vol] 101 mmol/L 98-107 [facility] Glucose [Mass/Vol] 168 mg/dL 74-106 [facility] Comment on above: Fasting Glucose resu lt greater than or equal to 126 mg/dL suggests DIABETES MELLITUS per A.D.A. criteria. Potassium [Moles/Vol] 3.7 mmol/L 3.5-5.1 [facility] Protein [Mass/Vol] 8.7 g/dL 6.4-8.2 [facility] Sodium [Moles/Vol] 133 mmol/L 136-145 [facility] Laboratory - Chemistry and C hemistry - challengeOrdered By: Dr. Smiley on 12-09-2022 ALP [Catalytic activity/Vol] 164 U/L 45-117 [facility] ALT [Catalytic activity/Vol] 27 U/L 13-56 [facility] CO2 [Moles/Vol] 25.0 mmol/L 21.0-32.0 [facility] Globulin (S) [Mass/Vol] 5.4 g/dL 2.2-4.2 [facility] Urea nitrogen/Creatinine [Mass ratio] 10.7 mg/mg 10-20 [facility] No Panel InformationOrdered By: Dr. Smiley on 12-09-2022 Estimated GFR (MDRD) Amer 67 mL/min >60 [facility] Comment on above: GFR Calc Estimated GFR (MDRD) Non-Af Amer 55 mL/min >60 [facility] Comment on above: Non- GFR Calc Parathyroid Hormone (Intact) 175.0 pg/mL 18.4-80.1 [facility] Vitamin D 25-Hydroxy 92.6 ng/mL [facility] Comment on above: Vitamin D 25(OH) Sta tus Range Deficiency <20 ng/mL (50nmol/L) Insufficiency 20 - 30 ng/mL (50 - 75 nmol/L) Sufficiency 30 - 100 ng/mL (75 - 250 nmol/L) Toxicity >100 ng/mL (>250 nmol/L) Serum or plasma albumin melanie urement (mass/volume)Ordered By: Dr. Smiley on 12-09-2022 Albumin [Mass/Vol] 3.3 g/dL 3.2-5.0 [facility] Serum or plasma albumin/glob ulin mass ratioOrdered By: Dr. Smiley on 12-09-2022 Albumin/Globulin [Mass ratio] 0.6 {ratio} 0.9-2.4 [facility] Serum or plasma calcium melanie urement (mass/volume)Ordered By: Dr. Smiley on 12-09-2022 Calcium [Mass/Vol] 11.4 mg/dL 8.5-10.1 [facility] Serum or plasma creatinine m easurement (mass/volume)Ordered By: Dr. Smiley on 12-09-2022 Creatinine [Mass/Vol] 1.03 mg/dL 0.55-1.02 [facility] Comment on above: The validity of the calculated GFR & GFRAA in patients over 70 years has not been determined. Clinical correlation is essential. Serum or plasma urea nitroge n measurement (mass/volume)Ordered By: Dr. Smiley on 12-09-2022 Urea nitrogen [Mass/Vol] 11 mg/dL 7-18 [facility] Thin prep Papanicolaou smear with manual screeningOrdered By: Dr. Smiley on 12-09-2022 Thin prep Papanicolaou smear with manual screening 20 U/L 15-37 [facility] Thin prep Papanicolaou smear with manual screening 7 5-15 [facility] Whole blood hemoglobin A1c/t otal hemoglobin ratio (mass fraction)Ordered By: Dr. Smiley on 12-09-2022 HbA1c (Bld) [Mass fraction] 7.4 % 3.8-5.6 [facility] Comment on above: Normal < 5.7 % Predi abetic 5.7 - 6.4 % Diabetic >or= 6.5 % Please note range changes. Absolute lymphocyte counton 07-14-2022 Lymphocytes Auto (Unsp spec) [#/Vol] 2.79 10*3/uL 0.83-4.51 [facility] Work Phone: Basophil percentageon 2021 Basophil percentage 25-50 SEEN /hpf 0-5 [facility] Work Phone: Basophils/100 WBC (Bld) 0.5 % 0-1 [facility] Work Phone: Bilirubin [Mass/Vol] 0.30 mg/dL 0.20-1.00 [facility] Work Phone: [phone] Comment on above: For patients on eltr ombopag therapy, use of [place] TBIL is not recommended. Chloride [Moles/Vol] 102 mmol/L 98-107 [facility] Work Phone: Eosinophils/100 WBC (Bld) 3.2 % 0-5 [facility] Work Phone: Glucose [Mass/Vol] 143 mg/dL 74-106 [facility] Work Phone: Comment on above: Fasting Glucose resu lt greater than or equal to 126 mg/dL suggests DIABETES MELLITUS per A.D.A. criteria. Neutrophils (Bld) [#/Vol] 4.5 10*3/uL 2.0-7.7 [facility] Work Phone: Neutrophils/100 WBC (Bld) 54.7 % 47-70 [facility] Work Phone: Potassium [Moles/Vol] 4.9 mmol/L 3.5-5.1 [facility] Work Phone: Comment on above: Moderate Hemolysis, Result may be falsely increased. Protein [Mass/Vol] 8.3 g/dL 6.4-8.2 [facility] Work Phone: Sodium [Moles/Vol] 136 mmol/L 136-145 [facility] Work Phone: WBC (Bld) [#/Vol] 8.1 10*3/uL 4.4-11.0 [facility] Work Phone: Bilirubin Test strip Ql (U)o n 07-14-2022 Bilirubin Ql (U) Negative Negative [facility] Work Phone: Blood erythrocytes count (nu mber/volume)on 07-14-2022 RBC (Bld) [#/Vol] 4.15 10*6/uL 4.2-5.[facility]: Blood hemoglobin measurement (mass/volume)on 07-14-2022 Hemoglobin (Bld) [Mass/Vol] 12.0 g/dL 12.0-15.0 [facility] Work Phone: Blood lymphocytes/100 leukoc yteson 07-14-2022 Lymphocytes/100 WBC (Bld) 34.4 % 19-41 [facility] Work Phone: Blood monocytes/100 leukocyt eson 07-14-2022 Monocytes/100 WBC (Bld) 6.8 % 0-10 [facility] Work Phone: Blood platelet mean volumeon 07-14-2022 Platelet mean volume (Bld) [Entitic vol] 10.2 fL 6.2-12.0 [facility] Work Phone: Determination of erythrocyte mean corpuscular volume (MCV)on 07-14-2022 MCV (RBC) [Entitic vol] 90.8 fL 81-99 [facility] Work Phone: Hematocrit Auto (Bld) [Volum e fraction]on 07-14-2022 Hematocrit (Bld) [Volume fraction] 37.7 % 37-47 [facility] Work Phone: Ketones Test strip Ql (U)on 07-14-2022 Ketones Ql (U) Negative Negative [facility] Work Phone: Laboratory - Chemistry and C hemistry - challengeon 07-14-2022 ALP [Catalytic activity/Vol] 131 U/L 45-117 [facility] Work Phone: ALT [Catalytic activity/Vol] 33 U/L 13-56 [facility] Work Phone: CO2 [Moles/Vol] 31.0 mmol/L 21.0-32.0 [facility] Work Phone: Globulin (S) [Mass/Vol] 5.0 g/dL 2.2-4.2 [facility] Work Phone: Urea nitrogen/Creatinine [Mass ratio] 14.7 mg/mg 10-20 [facility] Work Phone: Laboratory - Hematology and Cell countson 07-14-2022 Erythrocyte distribution width (RBC) [Entitic vol] 49.9 fL 35.1-43.9 [facility] Work Phone: Erythrocyte distribution width (RBC) [Ratio] 15.1 % 11.6-14.6 [facility] Work Phone: Immature granulocytes/100 WBC (Bld) 0.400 % 0.0-0.9 [facility] Work Phone: Comment on above: IG% - Immature Granu locytes (promyelocytes, myelocytes and metamyelocytes) > 1% indicates that a LEFT SHIFT is Present. MCH (RBC) [Entitic mass] 28.9 pg 27.0-32.0 [facility] Work Phone: Nucleated RBC/100 WBC (Bld) [Ratio] 0 % 0-5 [facility] Work Phone: MCHC Auto (RBC) [Mass/Vol]on 07-14-2022 MCHC (RBC) [Mass/Vol] 31.8 g/dL 32-36 [facility] Work Phone: Mucus LM Ql (Urine sed)on Mucus Ql (Urine sed) 0 SEEN /hpf [facility] Work Phone: Nitrite Test strip Ql (U)on 07-14-2022 Nitrite Ql (U) Negative Negative [facility] Work Phone: No Panel Informationon 07-14 Estimated Creatinine Clearance Calc 40.37 ml/min [facility] Work Phone: Estimated GFR (MDRD) Amer 73 mL/min >60 [facility] Work Phone: Comment on above: GFR Calc Estimated GFR (MDRD) Non-Af Amer 60 mL/min >60 [facility] Work Phone: Comment on above: Non- GFR Calc Platelets bldon 07-14-2022 Platelets (Bld) [#/Vol] 267 10*3/uL 150-450 [facility] Work Phone: Protein Test strip Ql (U)on 07-14-2022 Protein Ql (U) 30 mg/dl Negative [facility] Work Phone: Serum or plasma albumin melanie urement (mass/volume)on 07-14-2022 Albumin [Mass/Vol] 3.3 g/dL 3.2-5.0 [facility] Work Phone: Serum or plasma albumin/glob ulin mass ratioon 07-14-2022 Albumin/Globulin [Mass ratio] 0.7 {ratio} 0.9-2.4 [facility] Work Phone: Serum or plasma calcium melanie urement (mass/volume)on 07-14-2022 Calcium [Mass/Vol] 11.4 mg/dL 8.5-10.1 [facility] Work Phone: Serum or plasma creatinine m easurement (mass/volume)on 07-14-2022 Creatinine [Mass/Vol] 0.95 mg/dL 0.55-1.02 [facility] Work Phone: Comment on above: The validity of the calculated GFR & GFRAA in patients over 70 years has not been determined. Clinical correlation is essential. Serum or plasma urea nitroge n measurement (mass/volume)on 07-14-2022 Urea nitrogen [Mass/Vol] 14 mg/dL 7-18 [facility] Work Phone: Squamous epithelial cells de tection in urine sediment by light microscopyon 07-14-2022 Epithelial cells.squamous LM Ql (Urine sed) 0-5 SEEN /hpf 5-10 [facility] Work Phone: Thin prep Papanicolaou smear with manual screeningon 07-14-2022 Thin prep Papanicolaou smear with manual screening 44 U/L 15-37 [facility] Work Phone: Comment on above: Moderate Hemolysis, Result may be falsely increased. Thin prep Papanicolaou smear with manual screening 3 5-15 [facility] Work Phone: Urine blood detectionon 07-01 RBC Ql (U) 25 /ul Negative [facility] Work Phone: [phone] RBC Ql (U) 0 SEEN /hpf 0-5 [facility] Work Phone: Urine clarityon 07-14-2022 Clarity (U) Sl. Cloudy Clear [facility] Work Phone: Urine color determinationon 07-14-2022 Color (U) Yellow Yellow [facility] Work Phone: Urine glucose detectionon Glucose Ql (U) 1000 mg/dl Normal [facility] Work Phone: Urine leukocyte esterase det ection by dipstickon 07-14-2022 Leukocyte esterase Test strip Ql (U) 500 /ul Negative [facility] Work Phone: Urine pHon 07-14-2022 pH (U) 6.0 [pH] 5.0 - 8.0 [facility] Work Phone: Urine sediment bacteria coun t by microscopy (number/high power field)on 07-14-2022 Bacteria LM.HPF (Urine sed) [#/Area] 3 /[HPF] None Seen [facility] Work Phone: Urine specific gravity measu rementon 07-14-2022 Specific gravity (U) [Rel density] 1.015 1.002-1.030 [facility] Work Phone: Urobilinogen Auto test strip Ql (U)on 07-14-2022 Urobilinogen Ql (U) Normal mg/dl Normal [facility] Work Phone: CBC W Auto Differential pane l (Bld)on 05-07-2022 Basophils (Bld) [#/Vol] 0.05 10*3/uL Normal <0.11 [facility] Comment on above: Order Comment: Speci men Type: BLOOD SPECIMEN Ordering Facility: [facility] Address: [address] [place] [address] Performed By: #### 5 7021-8 #### [facility] CLIA [id number] [address] [place] [address] [place] Basophils/100 WBC (Bld) 0.7 % Normal [facility] Comment on above: Order Comment: Speci men Type: BLOOD SPECIMEN Ordering Facility: [facility] Address: [address] [place] [address] Performed By: #### 5 7021-8 #### [facility] CLIA [id number] [address] [place] [address] [place] Differential cell count method Nom (Bld) Auto Normal [facility] Comment on above: Order Comment: Speci men Type: BLOOD SPECIMEN Ordering Facility: [facility] Address: [address] [place] [address] Performed By: #### 5 7021-8 #### [facility] CLIA [id number] [address] [place] [address] [place] Eosinophils (Bld) [#/Vol] 0.32 10*3/uL Normal <0.46 [facility] Comment on above: Order Comment: Speci men Type: BLOOD SPECIMEN Ordering Facility: [facility] Address: [address] [place] [address] Performed By: #### 5 7021-8 #### [facility] CLIA [id number] [address] [place] [address] [place] Eosinophils/100 WBC (Bld) 4.7 % Normal [facility] Comment on above: Order Comment: Speci men Type: BLOOD SPECIMEN Ordering Facility: [facility] Address: [address] [place] [address] Performed By: #### 5 7021-8 #### [facility] CLIA [id number] [address] [place] [address] [place] Erythrocyte distribution width (RBC) [Ratio] 14.6 % Normal 11.5-15.0 [facility] Comment on above: Order Comment: Speci men Type: BLOOD SPECIMEN Ordering Facility: [facility] Address: [address] [place] [address] Performed By: #### 5 7021-8 #### [facility] CLIA [id number] [address] [place] [address] [place] Hematocrit (Bld) [Volume fraction] 37.2 % Normal 36.0-46.0 [facility] Comment on above: Order Comment: Speci men Type: BLOOD SPECIMEN Ordering Facility: [facility] Address: [address] [place], [place] [address] Performed By: #### 5 7021-8 #### [facility] CLIA [id number] [address] [place] [address] [place] Hemoglobin (Bld) [Mass/Vol] 12.0 g/dL Normal 11.5-15.5 [facility] Comment on above: Order Comment: Speci men Type: BLOOD SPECIMEN Ordering Facility: [facility] Address: [address] [place], [place] [address] Performed By: #### 5 7021-8 #### [facility] CLIA [id number] [address] [place] [address] [place] IMMATURE GRAN % 0.1 % Normal [facility] Comment on above: Order Comment: Speci men Type: BLOOD SPECIMEN Ordering Facility: [facility] Address: [address] [place] [address] Performed By: #### 5 7021-8 #### [facility] CLIA [id number] [address] [place] [address] [place] IMMATURE GRAN ABS <0.03 Normal <0.10 [facility] Comment on above: Order Comment: Speci men Type: BLOOD SPECIMEN Ordering Facility: [facility] Address: [address] [place] [address] Performed By: #### 5 7021-8 #### [facility] CLIA [id number] [address] [place] [address] [place] Lymphocytes (Bld) [#/Vol] 2.03 10*3/uL Normal 1.00-4.00 [facility] Comment on above: Order Comment: Speci men Type: BLOOD SPECIMEN Ordering Facility: [facility] Address: [address] [place], [place] [address] Performed By: #### 5 7021-8 #### [facility] CLIA [id number] [address] [place] [address] [place] Lymphocytes/100 WBC (Bld) 29.7 % Normal [facility] Comment on above: Order Comment: Speci men Type: BLOOD SPECIMEN Ordering Facility: [facility] Address: [address] [place], [place] [address] Performed By: #### 5 7021-8 #### [facility] CLIA [id number] [address] [place] [address] [place] MCH (RBC) [Entitic mass] 28.5 pg Normal 26.0-34.0 [facility] Comment on above: Order Comment: Speci men Type: BLOOD SPECIMEN Ordering Facility: [facility] Address: [address] [place] [address] Performed By: #### 5 7021-8 #### [facility] CLIA [id number] [address] [place] [address] MCHC (RBC) [Mass/Vol] 32.3 g/dL Normal 30.5-36.0 [facility] Comment on above: Order Comment: Speci men Type: BLOOD SPECIMEN Ordering Facility: [facility] Address: [address] [place] [address] Performed By: #### 5 7021-8 #### [facility] CLIA [id number] [address] [place] [address] [place] MCV (RBC) [Entitic vol] 88.4 fL Normal 80.0-100.[address] [facility] Comment on above: Order Comment: Speci men Type: BLOOD SPECIMEN Ordering Facility: [facility] Address: [address] [place] [address] Performed By: #### 5 7021-8 #### [facility] CLIA [id number] [address] [place] [address] [place] Monocytes (Bld) [#/Vol] 0.47 10*3/uL Normal <0.87 [facility] Comment on above: Order Comment: Speci men Type: BLOOD SPECIMEN Ordering Facility: [facility] Address: [address] [place] [address] Performed By: #### 5 7021-8 #### [facility] CLIA [id number] [address] [place] [address] [place] Monocytes/100 WBC (Bld) 6.9 % Normal [facility] Comment on above: Order Comment: Speci men Type: BLOOD SPECIMEN Ordering Facility: [facility] Address: [address] [place], [place] [address] Performed By: #### 5 7021-8 #### [facility] CLIA [id number] [address] [place] [address] [place] Neutrophils (Bld) [#/Vol] 3.96 10*3/uL Normal 1.45-7.50 [facility] Comment on above: Order Comment: Speci men Type: BLOOD SPECIMEN Ordering Facility: [facility] Address: [address] [place] [address] Performed By: #### 5 7021-8 #### [facility] CLIA [id number] [address] [place] [address] [place] Neutrophils/100 WBC (Bld) 57.9 % Normal [facility] Comment on above: Order Comment: Speci men Type: BLOOD SPECIMEN Ordering Facility: [facility] Address: [address] [place], [place] [address] Performed By: #### 5 7021-8 #### [facility] CLIA [id number] [address] [place] [address] [place] Nucleated RBC (Bld) [#/Vol] 10*3/uL Normal <0.01 [facility] Comment on above: Order Comment: Speci men Type: BLOOD SPECIMEN Ordering Facility: [facility] Address: [address] [place], [place] [address] Performed By: #### 5 7021-8 #### [facility] CLIA [id number] [address] [place] [address] [place] Nucleated RBC/100 WBC (Bld) [Ratio] 0.0 /100 WBC Normal [facility] Comment on above: Order Comment: Speci men Type: BLOOD SPECIMEN Ordering Facility: [facility] Address: [address] [place], [place] [address] Performed By: #### 5 7021-8 #### [facility] CLIA [id number] [address] [place] [address] [place] Platelet mean volume (Bld) [Entitic vol] 10.0 fL Normal 9.0-12.7 [facility] Comment on above: Order Comment: Speci men Type: BLOOD SPECIMEN Ordering Facility: [facility] Address: [address] [place], [place] [address] Performed By: #### 5 7021-8 #### [facility] CLIA [id number] [address] [place] [address] [place] Platelets (Bld) [#/Vol] 246 10*3/uL Normal 150-400 [facility] Comment on above: Order Comment: Speci men Type: BLOOD SPECIMEN Ordering Facility: [facility] Address: [address] [place], [place] [address] Performed By: #### 5 7021-8 #### [facility] CLIA [id number] [address] [place] [address] [place] RBC (Bld) [#/Vol] 4.21 10*6/uL Normal 3.90-5.20 [facility] Comment on above: Order Comment: Speci men Type: BLOOD SPECIMEN Ordering Facility: [facility] Address: [address] [place] [id number] Performed By: #### 5 7021-8 #### [facility] CLIA [id number] [address] [place] [address] [place] WBC (Bld) [#/Vol] 6.84 10*3/uL Normal 3.70-11.00 [facility] Comment on above: Order Comment: Speci men Type: BLOOD SPECIMEN Ordering Facility: [facility] Address: [address] [place], [place] [address] Performed By: #### 5 7021-8 #### [facility] CLIA [id number] [address] [place] [address] [place] CNOVSPon 05-07-2022 CNOVSP Visit (SP) Office (HEMPREETHI) OLGA DONALDSON ([id number]) 1945 F Date Time Provider Department 05/07/22 1:30 PM ALSHONDA IRAHETA During your visit today, we recorded the following information about you: Temperature Pulse Blood pressure Weight 97.2 degrees 66/minute 160/68 73.7 kg Height 1.581 m 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 APRN.COPPER FLOTATION OPERATOR 05/07/2022 2:25 PM Signed Chief Complaint [...] an every 2-week basis for 4 cycles ([id number]). Completed a year of trastuzumab 06/16/06. Referred back or anemia. Admitted to [facility] 12/02/2019 for chest pain with ambulation. [...] 1.00 - 4.00 k/uL 2.70 2.30 2.03 Irion% % 7.0 6.6 6.9 Abs Irion <0.87 k/uL 0.49 0.47 0.47 Eosin% % 4.9 3.2 4.7 Abs Eosin <0.46 k/uL 0.34 0.23 0.32 Baso% % 0.7 0.6 0.7 Abs Baso <0.11 k/uL 0.05 0.04 0.05 Immature (more content not included)... Normal [facility] Ferritin [facility] 2021 Ferritin [Mass/Vol] 808.0 ng/mL High 14.7-205.1 [facility] Comment on above: Order Comment: Speci men Type: BLOOD SPECIMEN Ordering Facility: [facility] Address: [address] [place], [place] [address] Performed By: #### 5 0190-8, 6-4 #### [facility] CLIA [id number] [address] [place] [address] OF [facility] Iron and Iron binding capaci ty panelon 05-07-2022 Iron [Mass/Vol] 38 ug/dL Low 41-186 [facility] Comment on above: Order Comment: Speci men Type: BLOOD SPECIMEN Ordering Facility: [facility] Address: [address] [place] [address] Performed By: #### 5 0190-8, 2275-4 #### [facility] CLIA [id number] [address] [place] [address] OF [facility] Iron binding capacity [Mass/Vol] 240 ug/dL Normal 232-386 [facility] Comment on above: Order Comment: Speci men Type: BLOOD SPECIMEN Ordering Facility: [facility] Address: [address] [place] [address] Performed By: #### 5 0190-8, 2275-4 #### [facility] CLIA [id number] [address] [place] [address] STATES OF [facility] Iron/TIBC [Molar ratio] 15.8 % Normal 15.0-57.0 [facility] Comment on above: Order Comment: Speci men Type: BLOOD SPECIMEN Ordering Facility: [facility] Address: [address] [place], [place] [address] Performed By: #### 5 0190-8, 6-4 #### [facility] CLIA [id number] [address] [place] [address] [place] CNPCamryn 02-10-2022 CNPN Telephone (HEMAWS) OLGA DONALDSON ([id number]) 1945 F Date Time Provider Department 02/10/22 [...] Date Reviewed: 05/07/2021 Reviewed by: 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 APRN.COPPER FLOTATION OPERATOR - Fully Assessed Reason for Visit: [...] MIST) 0.65 % nasal spray Use 1 Hunter in the nose as needed. - diltiazem [...] by STACIE VARNER LPN on 02/10/22 Normal [facility] CBC W Auto Differential pane l (Bld)on 02-03-2022 Basophils (Bld) [#/Vol] 0.04 10*3/uL Normal <0.11 [facility] Comment on above: Order Comment: Speci men Type: BLOOD SPECIMEN Ordering Facility: [facility] Address: [address] [place], [place] [address] Performed By: #### 5 7021-8 #### [facility] CLIA [id number] [address] [place] [address] [place] Basophils/100 WBC (Bld) 0.6 % Normal [facility] Comment on above: Order Comment: Speci men Type: BLOOD SPECIMEN Ordering Facility: [facility] Address: [address] [place] [address] Performed By: #### 5 7021-8 #### [facility] CLIA [id number] [address] [place] [address] [place] Differential cell count method Nom (Bld) Auto Normal [facility] Comment on above: Order Comment: Speci men Type: BLOOD SPECIMEN Ordering Facility: [facility] Address: [address] [place], [place] [address] Performed By: #### 5 7021-8 #### [facility] CLIA [id number] [address] [place] [address] [place] Eosinophils (Bld) [#/Vol] 0.23 10*3/uL Normal <0.46 [facility] Comment on above: Order Comment: Speci men Type: BLOOD SPECIMEN Ordering Facility: [facility] Address: [address] [place], [place] [address] Performed By: #### 5 7021-8 #### [facility] CLIA [id number] [address] [place] [address] [place] Eosinophils/100 WBC (Bld) 3.2 % Normal [facility] Comment on above: Order Comment: Speci men Type: BLOOD SPECIMEN Ordering Facility: [facility] Address: [address] [place], [place] [address] Performed By: #### 5 7021-8 #### [facility] CLIA [id number] [address] [place] [address] [place] Erythrocyte distribution width (RBC) [Ratio] 14.3 % Normal 11.5-15.0 [facility] Comment on above: Order Comment: Speci men Type: BLOOD SPECIMEN Ordering Facility: [facility] Address: [address] [place] [address] Performed By: #### 5 7021-8 #### [facility] [id number] [address] [place] [address] [place] Hematocrit (Bld) [Volume fraction] 39.7 % Normal 36.0-46.0 [facility] Comment on above: Order Comment: Speci men Type: BLOOD SPECIMEN Ordering Facility: [facility] Address: [address] [place] [address] Performed By: #### 5 7021-8 #### [facility] [id number] [address] [place] [address] [place] Hemoglobin (Bld) [Mass/Vol] 12.8 g/dL Normal 11.5-15.5 [facility] Comment on above: Order Comment: Speci men Type: BLOOD SPECIMEN Ordering Facility: [facility] Address: [address] [place] [address] Performed By: #### 5 7021-8 #### [facility] [id number] [address] [place] [address] [place] IMMATURE GRAN % 0.3 % Normal [facility] Comment on above: Order Comment: Speci men Type: BLOOD SPECIMEN Ordering Facility: [facility] Address: [address] [place], [place] [address] Performed By: #### 5 7021-8 #### [facility] [id number] [address] [place] [address] [place] IMMATURE GRAN ABS <0.03 Normal <0.10 [facility] Comment on above: Order Comment: Speci men Type: BLOOD SPECIMEN Ordering Facility: [facility] Address: [address] [place] [address] Performed By: #### 5 7021-8 #### [facility] CLIA [id number] [address] [place] [address] [place] Lymphocytes (Bld) [#/Vol] 2.30 10*3/uL Normal 1.00-4.00 [facility] Comment on above: Order Comment: Speci men Type: BLOOD SPECIMEN Ordering Facility: [facility] Address: [address] [place] [address] Performed By: #### 5 7021-8 #### [facility] CLIA [id number] [address] [place] [address] [place] Lymphocytes/100 WBC (Bld) 32.1 % Normal [facility] Comment on above: Order Comment: Speci men Type: BLOOD SPECIMEN Ordering Facility: [facility] Address: [address] [place] [address] Performed By: #### 5 7021-8 #### [facility] CLIA [id number] [address] [place] [address] [place] MCH (RBC) [Entitic mass] 28.8 pg Normal 26.0-34.0 [facility] Comment on above: Order Comment: Speci men Type: BLOOD SPECIMEN Ordering Facility: [facility] Address: [address] [place] [address] Performed By: #### 5 7021-8 #### [facility] CLIA [id number] [address] [place] [address] [place] MCHC (RBC) [Mass/Vol] 32.2 g/dL Normal 30.5-36.0 [facility] Comment on above: Order Comment: Speci men Type: BLOOD SPECIMEN Ordering Facility: [facility] Address: [address] Performed By: #### 5 7021-8 #### [facility] CLIA [id number] [address] [place] [address] [place] MCV (RBC) [Entitic vol] 89.4 fL Normal 80.0-100.[address] [facility] Comment on above: Order Comment: Speci men Type: BLOOD SPECIMEN Ordering Facility: [facility] Address: [address] [place], [place] [address] Performed By: #### 5 7021-8 #### [facility] CLIA [id number] [address] [place] [address] [place] Monocytes (Bld) [#/Vol] 0.47 10*3/uL Normal <0.87 [facility] Comment on above: Order Comment: Speci men Type: BLOOD SPECIMEN Ordering Facility: [facility] Address: [address] [place], [place] [address] Performed By: #### 5 7021-8 #### [facility] CLIA [id number] [address] [place] [address] [place] Monocytes/100 WBC (Bld) 6.6 % Normal [facility] Comment on above: Order Comment: Speci men Type: BLOOD SPECIMEN Ordering Facility: [facility] Address: [address] [place], [place] [address] Performed By: #### 5 7021-8 #### [facility] CLIA [id number] [address] [place] [address] [place] Neutrophils (Bld) [#/Vol] 4.11 10*3/uL Normal 1.45-7.50 [facility] Comment on above: Order Comment: Speci men Type: BLOOD SPECIMEN Ordering Facility: [facility] Address: [address] [place], [place] [address] Performed By: #### 5 7021-8 #### [facility] CLIA [id number] [address] [place] [address] [place] Neutrophils/100 WBC (Bld) 57.2 % Normal [facility] Comment on above: Order Comment: Speci men Type: BLOOD SPECIMEN Ordering Facility: [facility] Address: [address] [place] [address] Performed By: #### 5 7021-8 #### [facility] CLIA [id number] [address] [place] [address] [place] Nucleated RBC (Bld) [#/Vol] 10*3/uL Normal <0.01 [facility] Comment on above: Order Comment: Speci men Type: BLOOD SPECIMEN Ordering Facility: [facility] Address: [address] [place] [address] Performed By: #### 5 7021-8 #### [facility] CLIA [id number] [address] [place] [address] [place] Nucleated RBC/100 WBC (Bld) [Ratio] 0.0 /100 WBC Normal [facility] Comment on above: Order Comment: Speci men Type: BLOOD SPECIMEN Ordering Facility: [facility] Address: [address] [place] [address] Performed By: #### 5 7021-8 #### [facility] CLIA [id number] [address] [place] [address] [place] Platelet mean volume (Bld) [Entitic vol] 10.3 fL Normal 9.0-12.7 [facility] Comment on above: Order Comment: Speci men Type: BLOOD SPECIMEN Ordering Facility: [facility] Address: [address] [place] [address] Performed By: #### 5 7021-8 #### [facility] CLIA [id number] [address] [place] [address] [place] Platelets (Bld) [#/Vol] 265 10*3/uL Normal 150-400 [facility] Comment on above: Order Comment: Speci men Type: BLOOD SPECIMEN Ordering Facility: [facility] Address: [address] [place] [address] Performed By: #### 5 7021-8 #### [facility] CLIA [id number] [address] [place] [address] [place] RBC (Bld) [#/Vol] 4.44 10*6/uL Normal 3.90-5.20 [facility] Comment on above: Order Comment: Speci men Type: BLOOD SPECIMEN Ordering Facility: [facility] Address: [address] [place] [address] Performed By: #### 5 7021-8 #### [facility] CLIA [id number] [address] [place] [address] [place] WBC (Bld) [#/Vol] 7.17 10*3/uL Normal 3.70-11.00 [facility] Comment on above: Order Comment: Speci men Type: BLOOD SPECIMEN Ordering Facility: [facility] Address: [address] [place] [address] Performed By: #### 5 7021-8 #### [facility] CLIA [id number] [address] [place] [address] [place] FERRITIN BLDon 02-03-2022 Ferritin [Mass/Vol] 1132.0 ng/mL High 14.7-205.1 [facility] Comment on above: Order Comment: Speci men Type: BLOOD SPECIMEN Ordering Facility: [facility] Address: [address] [place] [address] Performed By: #### F ERR, IRON #### [facility] CLIA [id number] [address] [place] [address] [place] [address] [place] IRON + TIBCon 02-03-2022 Iron [Mass/Vol] 66 ug/dL Normal 41-186 [facility] Comment on above: Order Comment: Speci men Type: BLOOD SPECIMEN Ordering Facility: [facility] Address: [address] [place] [address] Performed By: #### F ERR, IRON #### [facility] CLIA [id number] [address] [place] [address] STATES OF [facility] Iron binding capacity [Mass/Vol] 286 ug/dL Normal 232-386 [facility] Comment on above: Order Comment: Speci men Type: BLOOD SPECIMEN Ordering Facility: [facility] Address: [address] [place] [address] Performed By: #### F ERR, IRON #### [facility] CLIA [id number] [address] [place] [address] [place] Iron/TIBC [Molar ratio] 23 % Normal 15-[address] [facility] Comment on above: Order Comment: Speci men Type: BLOOD SPECIMEN Ordering Facility: [facility] Address: [address] [place] [address] Performed By: #### F ERR, IRON #### [facility] CLIA [id number] [address] [place] [address] [place] Bacteria identified Anaer cx Nom (Unsp spec)on 12-02-2021 Anaerobic microbial culture No anaerobic bacteria isolated. [facility] Work Phone: Bacteria identified Cx Nom ( Wound)on 12-02-2021 Wound Culture Negative [facility] Work Phone: Wound Culture Staphylococcus epidermidis [facility] Work Phone: Wound Culture Corynebacterium striatum [facility] Work Phone: Gram stain for investigation of transfusion reactionon 12-02-2021 Microscopic observation Gram stain Nom (Unsp spec) [facility] Work Phone: CBC W Auto Differential pane l (Bld)on 11-04-2021 Basophils (Bld) [#/Vol] 0.05 10*3/uL Normal <0.11 [facility] Comment on above: Order Comment: Speci men Type: BLOOD SPECIMEN Ordering Facility: [facility] Address: [address] [place], [place] [address] Performed By: #### 5 7021-8 #### [facility] CLIA [id number] [address] [place] [address] [place] Basophils/100 WBC (Bld) 0.7 % Normal [facility] Comment on above: Order Comment: Speci men Type: BLOOD SPECIMEN Ordering Facility: [facility] Address: [address] [place] [address] Performed By: #### 5 7021-8 #### [facility] CLIA [id number] [address] [place] [address] [place] Differential cell count method Nom (Bld) Auto Normal [facility] Comment on above: Order Comment: Speci men Type: BLOOD SPECIMEN Ordering Facility: [facility] Address: [address] [place], [place] [address] Performed By: #### 5 7021-8 #### [facility] CLIA [id number] [address] [place] [address] [place] Eosinophils (Bld) [#/Vol] 0.34 10*3/uL Normal <0.46 [facility] Comment on above: Order Comment: Speci men Type: BLOOD SPECIMEN Ordering Facility: [facility] Address: [address] [place], [place] [address] Performed By: #### 5 7021-8 #### [facility] CLIA [id number] [address] [place] [address] [place] Eosinophils/100 WBC (Bld) 4.9 % Normal [facility] Comment on above: Order Comment: Speci men Type: BLOOD SPECIMEN Ordering Facility: [facility] Address: [address] [place], [place] [address] Performed By: #### 5 7021-8 #### [facility] CLIA [id number] [address] [place] [address] [place] Erythrocyte distribution width (RBC) [Ratio] 13.3 % Normal 11.5-15.0 [facility] Comment on above: Order Comment: Speci men Type: BLOOD SPECIMEN Ordering Facility: [facility] Address: [address] [place] [address] Performed By: #### 5 7021-8 #### [facility] [id number] [address] [place] [address] [place] Hematocrit (Bld) [Volume fraction] 40.4 % Normal 36.0-46.0 [facility] Comment on above: Order Comment: Speci men Type: BLOOD SPECIMEN Ordering Facility: [facility] Address: [address] [place] [address] Performed By: #### 5 7021-8 #### [facility] [id number] [address] [place] [address] [place] Hemoglobin (Bld) [Mass/Vol] 12.9 g/dL Normal 11.5-15.5 [facility] Comment on above: Order Comment: Speci men Type: BLOOD SPECIMEN Ordering Facility: [facility] Address: [address] [place] [address] Performed By: #### 5 7021-8 #### [facility] [id number] [address] [place] [address] [place] IMMATURE GRAN % 0.1 % Normal [facility] Comment on above: Order Comment: Speci men Type: BLOOD SPECIMEN Ordering Facility: [facility] Address: [address] [place] [address] Performed By: #### 5 7021-8 #### [facility] [id number] [address] [place] [address] [place] IMMATURE GRAN ABS <0.03 Normal <0.10 [facility] Comment on above: Order Comment: Speci men Type: BLOOD SPECIMEN Ordering Facility: [facility] Address: [address] [place] [address] Performed By: #### 5 7021-8 #### [facility] CLIA [id number] [address] [place] [address] [place] Lymphocytes (Bld) [#/Vol] 2.70 10*3/uL Normal 1.00-4.00 [facility] Comment on above: Order Comment: Speci men Type: BLOOD SPECIMEN Ordering Facility: [facility] Address: [address] [place] [address] Performed By: #### 5 7021-8 #### [facility] CLIA [id number] [address] [place] [address] [place] Lymphocytes/100 WBC (Bld) 38.6 % Normal [facility] Comment on above: Order Comment: Speci men Type: BLOOD SPECIMEN Ordering Facility: [facility] Address: [address] [place] [address] Performed By: #### 5 7021-8 #### [facility] CLIA [id number] [address] [place] [address] [place] MCH (RBC) [Entitic mass] 28.9 pg Normal 26.0-34.0 [facility] Comment on above: Order Comment: Speci men Type: BLOOD SPECIMEN Ordering Facility: [facility] Address: [address] [place] [address] Performed By: #### 5 7021-8 #### [facility] CLIA [id number] [address] [place] [address] [place] MCHC (RBC) [Mass/Vol] 31.9 g/dL Normal 30.5-36.0 [facility] Comment on above: Order Comment: Speci men Type: BLOOD SPECIMEN Ordering Facility: [facility] Address: [address] [place], [place] [address] Performed By: #### 5 7021-8 #### [facility] CLIA [id number] [address] [place] [address] [place] MCV (RBC) [Entitic vol] 90.4 fL Normal 80.0-100.[address] [facility] Comment on above: Order Comment: Speci men Type: BLOOD SPECIMEN Ordering Facility: [facility] Address: [address] [place], [place] [address] Performed By: #### 5 7021-8 #### [facility] CLIA [id number] [address] [place] [address] [place] Monocytes (Bld) [#/Vol] 0.49 10*3/uL Normal <0.87 [facility] Comment on above: Order Comment: Speci men Type: BLOOD SPECIMEN Ordering Facility: [facility] Address: [address] [place], [place] [address] Performed By: #### 5 7021-8 #### [facility] CLIA [id number] [address] [place] [address] [place] Monocytes/100 WBC (Bld) 7.0 % Normal [facility] Comment on above: Order Comment: Speci men Type: BLOOD SPECIMEN Ordering Facility: [facility] Address: [address] [place], [place] [address] Performed By: #### 5 7021-8 #### [facility] CLIA [id number] [address] [place] [address] [place] Neutrophils (Bld) [#/Vol] 3.40 10*3/uL Normal 1.45-7.50 [facility] Comment on above: Order Comment: Speci men Type: BLOOD SPECIMEN Ordering Facility: [facility] Address: [address] [place], [place] [address] Performed By: #### 5 7021-8 #### [facility] CLIA [id number] [address] [place] [address] [place] Neutrophils/100 WBC (Bld) 48.7 % Normal [facility] Comment on above: Order Comment: Speci men Type: BLOOD SPECIMEN Ordering Facility: [facility] Address: [address] [place] [address] Performed By: #### 5 7021-8 #### [facility] CLIA [id number] [address] [place] [address] [place] Nucleated RBC (Bld) [#/Vol] 10*3/uL Normal <0.01 [facility] Comment on above: Order Comment: Speci men Type: BLOOD SPECIMEN Ordering Facility: [facility] Address: [address] [place] [address] Performed By: #### 5 7021-8 #### [facility] CLIA [id number] [address] [place] [address] [place] Nucleated RBC/100 WBC (Bld) [Ratio] 0.0 /100 WBC Normal [facility] Comment on above: Order Comment: Speci men Type: BLOOD SPECIMEN Ordering Facility: [facility] Address: [address] [place] [address] Performed By: #### 5 7021-8 #### [facility] CLIA [id number] [address] [place] [address] [place] Platelet mean volume (Bld) [Entitic vol] 10.1 fL Normal 9.0-12.7 [facility] Comment on above: Order Comment: Speci men Type: BLOOD SPECIMEN Ordering Facility: [facility] Address: [address] [place] [address] Performed By: #### 5 7021-8 #### [facility] CLIA [id number] [address] [place] [address] [place] Platelets (Bld) [#/Vol] 246 10*3/uL Normal 150-400 [facility] Comment on above: Order Comment: Speci men Type: BLOOD SPECIMEN Ordering Facility: [facility] Address: [address] [place] [address] Performed By: #### 5 7021-8 #### [facility] CLIA [id number] [address] [place] [address] [place] RBC (Bld) [#/Vol] 4.47 10*6/uL Normal 3.90-5.20 [facility] Comment on above: Order Comment: Speci men Type: BLOOD SPECIMEN Ordering Facility: [facility] Address: [address] [place] [address] Performed By: #### 5 7021-8 #### [facility] CLIA [id number] [address] [place] [address] [place] WBC (Bld) [#/Vol] 6.99 10*3/uL Normal 3.70-11.00 [facility] Comment on above: Order Comment: Speci men Type: BLOOD SPECIMEN Ordering Facility: [facility] Address: [address] [place] [address] Performed By: #### 5 7021-8 #### [facility] CLIA [id number] [address] [place] [address] [place] FERRITIN BLDon 11-04-2021 Ferritin [Mass/Vol] 1428.0 ng/mL High 14.7-205.1 [facility] Comment on above: Order Comment: Speci men Type: BLOOD SPECIMEN Ordering Facility: [facility] Address: [address] [place] [address] Performed By: #### I VICTOR MANUEL, FERR #### [facility] CLIA [id number] [address] [place] [address] [place] [address] [place] IRON + TIBCon 11-04-2021 Iron [Mass/Vol] 60 ug/dL Normal 41-186 [facility] Comment on above: Order Comment: Speci men Type: BLOOD SPECIMEN Ordering Facility: [facility] Address: [address] [place] [address] Performed By: #### Lety RUSH, FERR #### [facility] CLIA [id number] [address] [place] [address] Iron binding capacity [Mass/Vol] 242 ug/dL Normal 232-386 [facility] Comment on above: Order Comment: Speci men Type: BLOOD SPECIMEN Ordering Facility: [facility] Address: [address] [place] [address] Performed By: #### Lety RUSH, FERR #### [facility] CLIA [id number] [address] [place] [address] OF [facility] Iron/TIBC [Molar ratio] 25 % Normal 15-[address] [facility] Comment on above: Order Comment: Speci men Type: BLOOD SPECIMEN Ordering Facility: [facility] Address: [address] [place] [address] Performed By: #### Lety RUSH, FERR #### [facility] CLIA [id number] [address] [place] [address] OF [facility] CNPCamryn 09-29-2021 [place] Telephone (EVELYN) OLGA DONALDSON ([id number]) 1945 F Date Time Provider Department 09/29/21 [...] Date Reviewed: 05/07/2021 Reviewed by: 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 APRN.COPPER FLOTATION OPERATOR - Fully Assessed Reason for Visit: Results [95] Follow Up [171] Primary Visit Diagnosis:Anemia, unspecified type [D64.9] Order(s):CBC + DIFF [SQCBCDIF] Order #: [id number] FUTURE COMP METABOLIC PANEL [SQCMP] Order #: [id number] FUTURE PROTEIN ELECTROPHORESIS SERUM W/INTERP [SQSEPG] Order #: [id number] FUTURE MONOCLONAL PROTEIN, SERUM (BLOOD) [SQSERMPA] Order #: [id number] FUTURE Prescriptions as of 04/12/2022 - ascorbic [...] MIST) 0.65 % nasal spray Use 1 Hunter in the nose as needed. - diltiazem [...] Specified Conge (more content not included)... Normal [facility] 05-09-2021 [place] Telephone (EVELYN) OLGA DONALDSON ([id number]) 1945 F Date Time Provider Department 05/09/21 [...] Date Reviewed: 05/07/2021 Reviewed by: 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 APRN.COPPER FLOTATION OPERATOR - Fully Assessed Reason for Visit: [...] MIST) 0.65 % nasal spray Use 1 Hunter in the nose as needed. - diltiazem [...] by STACIE VARNER LPN on 05/09/21 Normal [facility] - Specimen inform ationon 03-27-2021 Specimen source Nom (Unsp spec) Stool [facility] No Panel Informationon 03-27 Occult Blood Diagnostic Positive [facility] FERRITIN BLDon 03-22-2021 Ferritin [Mass/Vol] 1064.0 ng/mL High 14.7 - 2 05.1 ng/mL [facility] CULTURE FUNGUSon 02-08-2018 CULTURE FUNGUS 1 Organism Nithya albicans Many Normal [facility] Comment on above: Performed By: #### C /FUN, S/FUN ####[address] [address] STAIN FUNGUSon 01-19-2018 STAIN FUNGUS STAIN FUNGUS --> Status: F 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 Direct exam by Calcofluor stain. Direct exam by Calcofluor stain. Normal [facility] Comment on above: Performed By: #### C /FUN, S/FUN ####[address] [place] [address] Office Visit: Dede mina 01-13-2017 Adolescent depression screening assessment Adolescent depression screening assessment Invalid Interpretation Code [facility] Work Phone: [phone] Adult depression screening assessment Adolescent depression screening assessment [facility] Work Phone: [phone] Documentation of current medications (procedure) Done Invalid Interpretation Code [facility] Work Phone: [phone] Fall risk assessment Fall risk assessment [facility] Work Phone: [phone] Tobacco smoking status NHIS Never [facility] Work Phone: [phone] Tobacco smoking status NHIS Former smoker [facility] Work Phone: [phone] Tobacco use CPHS Former smoker Invalid Interpretation Code [facility] Work Phone: [phone] 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 Left ventricular Ejection fraction 70 % [facility] Work Phone: [phone] Office Visiton 08-29-2015 cardiac risk group [facility] Work Phone: [phone] General cardiovascular disease 10Y risk [#] [place].D'Agostted Not enough information [facility] Work Phone: [phone] Replaced Document: Bernie Vallejo CG Observationson 08-29-2015 EKG QRS axis 29 deg [facility] Work Phone: [phone] electrocardiogram interpretation Sinus Tachycardia -With rate variation cv = 10.WITHIN NORMAL LIMITS Invalid Interpretation Code [facility] Work Phone: [phone] GE use only - for LinkLogic import when terms are not otherwise specified 411 ms Invalid Interpretation Code [facility] Work Phone: [phone] Interpretation Sinus Tachycardia -With rate variation cv = 10.WITHIN NORMAL LIMITS [facility] Work Phone: [phone] P Zuni 41 deg [facility] Work Phone: [phone] P wave axis, electrocardiogram 41 deg Invalid Interpretation Code [facility] Work Phone: [phone] UT Interval 134 ms [facility] Work Phone: [phone] UT interval, electrocardiogram 134 ms Invalid Interpretation Code [facility] Work Phone: [phone] Pulse (Heart Rate) 109 /min Invalid Interpretation Code [facility] Work Phone: [phone] QRS axis, electrocardiogram 29 deg Invalid Interpretation Code [facility] Work Phone: [phone] QRS Duration 80 ms [facility] Work Phone: [phone] QRS duration, electrocardiogram 80 ms Invalid Interpretation Code [facility] Work Phone: [phone] QT Interval new path ms [facility] Work Phone: [phone] QT interval, electrocardiogram new path ms Invalid Interpretation Code [facility] Work Phone: [phone] QTc Carney 411 ms [facility] Work Phone: [phone] T Zuni 37 deg [facility] Work Phone: [phone] T wave axis, electrocardiogram 37 deg Invalid Interpretation Code [facility] Work Phone: [phone] Bacteria identified Anaer cx Nom (Unsp spec) Anaerobic microbial culture No anaerobic bacteria isolated. [facility] Work Phone: Bacteria identified Cx Nom ( Wound) Wound Culture Negative [facility] Work Phone: Wound Culture Staphylococcus epidermidis [facility] Work Phone: Wound Culture Corynebacterium striatum [facility] Work Phone: Culture, urine Bacteria identified Cx Nom (U) Klebsiella pneumoniae sp pneum [facility] Work Phone: Gram stain for investigation of transfusion reaction Microscopic observation Gram stain Nom (Unsp spec) [facility] Work Phone: Vital Signs Date Time Vital Sign Value Performing Clinician Facility 02-19-2025 00:38-0400 Body temperature 98.7 [degF] Dr. Ramone Smiley MD Work Phone: [facility] 02-19-2025 00:38-0400 Diastolic blood pressure 86 mm[Hg] Dr. Ramone Smiley MD Work Phone: [facility] 02-19-2025 00:38-0400 Heart rate 98 /min Dr. Ramone Smiley MD Work Phone: 9(621)641-581916 [place] [address] 02-19-2025 00:38-0400 Respiratory rate 22 /min Dr. Ramone Smiley MD Work Phone: 5(361)905-298654 [place] [address] 02-19-2025 00:38-0400 SaO2% (BldA) [Mass fraction] 98 % Dr. Ramone Smiley MD Work Phone: 0(589)441-058054 [place] [address] 02-19-2025 00:38-0400 Systolic blood pressure 122 mm[Hg] Dr. Ramone Smiley MD Work Phone: 2(526)199-068754 [place] [address] 02-19-2025 00:23-0400 Inhaled oxygen flow rate 2 L/min Dr. Ramone Smiley MD Work Phone: 8(612)748-582254 [place] [address] 02-18-2025 20:51-0400 Body height 160.[address] aRmone Smiley MD Work Phone: 7(172)429-617354 [place] [address] 02-18-2025 20:51-0400 Body mass index (BMI) [Ratio] 30.4 kg/m2 Dr. Ramone Smiley MD Work Phone: 2(085)180-282354 [place] [address] 02-18-2025 20:51-0400 Body weight 77.[address] Ramone Smiley MD Work Phone: 2(559)059-324154 [place] [address] 02-17-2025 18:40-0400 Heart rate 78 /min Dr. Ramone Smiley MD Work Phone: 4(603)085-670054 [place] [address] 02-17-2025 18:40-0400 Inhaled oxygen flow rate 2 L/min Dr. Ramone Smiley MD Work Phone: 1(346)480-922554 [place] [address] 02-17-2025 18:40-0400 Respiratory rate 18 /min Dr. Ramone Smiley MD Work Phone: 3(561)153-424254 [place] [address] 02-17-2025 18:40-0400 SaO2% (BldA) [Mass fraction] 94 % Dr. Ramone Smiley MD Work Phone: 0(731)959-257554 [place] [address] 02-17-2025 18:08-0400 Body temperature 98.9 [degF] Dr. Ramone Smiley MD Work Phone: [facility] 02-17-2025 18:08-0400 Diastolic blood pressure 54 mm[Hg] Dr. Ramone Smiley MD Work Phone: [facility] 02-17-2025 18:08-0400 Systolic blood pressure 137 mm[Hg] Dr. Ramone Smiley MD Work Phone: 3(125)726-995616 [place] [address] 02-17-2025 04:49-0400 Body mass index (BMI) [Ratio] 29.4 kg/m2 Dr. Ramone Smiley MD Work Phone: 3(629)153-832616 [place] [address] 02-17-2025 04:49-0400 Body weight 75.[address] Ramone Smiley MD Work Phone: 2(471)568-423645 [address] 02-15-2025 15:20-0400 Body height 160.[address] Ramone Smiley MD Work Phone: 9(492)138-536645 [address] 02-15-2025 13:54-0400 Body temperature 99.6 [degF] Dr. Ramone Smiley MD Work Phone: 2(706)724-365345 [address] 02-15-2025 13:54-0400 Diastolic blood pressure 53 mm[Hg] Dr. Ramone Smiley MD Work Phone: [facility] 02-15-2025 13:54-0400 Heart rate 98 /min Dr. Ramone Smiley MD Work Phone: 5(867)661-281816 [place] [address] 02-15-2025 13:54-0400 Inhaled oxygen flow rate 3 L/min Dr. Ramone Smiley MD Work Phone: [facility] 02-15-2025 13:54-0400 Respiratory rate 22 /min Dr. Ramone Smiley MD Work Phone: [facility] 02-15-2025 13:54-0400 SaO2% (BldA) [Mass fraction] 98 % Dr. Ramone Smiley MD Work Phone: [facility] 02-15-2025 13:54-0400 Systolic blood pressure 110 mm[Hg] Dr. Ramone Smiley MD Work Phone: [facility] 02-15-2025 08:36-0400 Body height 160.[address] Ramone Smiley MD Work Phone: [facility] 02-15-2025 08:36-0400 Body mass index (BMI) [Ratio] 30.4 kg/m2 Dr. Ramone Smiley MD Work Phone: 9(806)196-329416 [place] [address] 02-15-2025 08:36-0400 Body weight 78.[address] Ramone Smiley MD Work Phone: 8(925)943-037616 [place] [address] 02-13-2025 16:00-0400 Inhaled oxygen flow rate 2 L/min Dr. Ramone Smiley MD Work Phone: 0(055)165-094554 [place] [address] 02-13-2025 14:04-0400 Body temperature 98.4 [degF] Dr. Ramone Smiley MD Work Phone: 0(223)989-443554 [place] [address] 02-13-2025 14:04-0400 Heart rate 94 /min Dr. Ramone Smiley MD Work Phone: 2(688)066-040054 [place] [address] 02-13-2025 14:04-0400 Respiratory rate 20 /min Dr. Ramone Smiley MD Work Phone: 8(832)990-303754 [place] [address] 02-13-2025 14:04-0400 SaO2% (BldA) [Mass fraction] 94 % Dr. Ramone Smiley MD Work Phone: 0(575)095-196754 [place] [address] 02-13-2025 08:41-0400 Diastolic blood pressure 51 mm[Hg] Dr. Ramone Smiley MD Work Phone: 7(936)028-817816 [place] [address] 02-13-2025 08:41-0400 Systolic blood pressure 132 mm[Hg] Dr. Ramone Smiley MD Work Phone: 5(316)211-733854 [place] [address] 02-10-2025 13:27-0400 Body height 160.[address] Ramone Smiley MD Work Phone: 6(548)883-689354 [place] [address] 02-10-2025 13:27-0400 Body weight 76.[address] Ramone Smiley MD Work Phone: 0(471)965-382016 [place] [address] 02-09-2025 16:43-0400 Body mass index (BMI) [Ratio] 29.9 kg/m2 Dr. Ramone Smiley MD Work Phone: 0(873)080-222854 [place] [address] 02-09-2025 15:12-0400 Inhaled oxygen flow rate 2 L/min Dr. Ramone Smiley MD Work Phone: 9(201)992-509254 [place] [address] 02-09-2025 15:12-0400 SaO2% (BldA) [Mass fraction] 91 % Dr. Ramone Smiley MD Work Phone: 3(011)805-669354 [place] [address] 02-09-2025 15:08-0400 Body temperature 99 [degF] Dr. Ramone Smiley MD Work Phone: 9(426)968-612654 [place] [address] 02-09-2025 15:08-0400 Diastolic blood pressure 46 mm[Hg] Dr. Ramone Smiley MD Work Phone: 3(103)158-320854 [place] [address] 02-09-2025 15:08-0400 Heart rate 94 /min Dr. Ramone Smiley MD Work Phone: 7(374)945-861454 [place] [address] 02-09-2025 15:08-0400 Respiratory rate 25 /min Dr. Ramone Smiley MD Work Phone: 2(884)537-962954 [place] [address] 02-09-2025 15:08-0400 Systolic blood pressure 136 mm[Hg] Dr. Ramone Smiley MD Work Phone: 5(562)262-761254 [place] [address] 02-09-2025 11:52-0400 Body height 160.[address] Ramone Smiley MD Work Phone: 7(649)005-018854 [place] [address] 02-09-2025 11:52-0400 Body mass index (BMI) [Ratio] 30.1 kg/m2 Dr. Ramone Smiley MD Work Phone: 4(294)094-540654 [place] [address] 02-09-2025 11:52-0400 Body weight 77.[address] Ramone Smiley MD Work Phone: 9(557)197-962254 [place] [address] 02-06-2025 15:38-0400 Body temperature 97.5 [degF] Dr. Ramone Smiley MD Work Phone: 4(047)130-992854 [place] [address] 02-06-2025 15:38-0400 Diastolic blood pressure 81 mm[Hg] Dr. Ramone Smiley MD Work Phone: 5(342)325-905816 [place] [address] 02-06-2025 15:38-0400 Heart rate 74 /min Dr. Ramone Smiley MD Work Phone: 0(256)668-334154 [place] [address] 02-06-2025 15:38-0400 Respiratory rate 18 /min Dr. Ramone Smiley MD Work Phone: 9(731)627-208654 [place] [address] 02-06-2025 15:38-0400 SaO2% (BldA) [Mass fraction] 93 % Dr. Ramone Smiley MD Work Phone: 7(193)006-684454 [place] [address] 02-06-2025 15:38-0400 Systolic blood pressure 117 mm[Hg] Dr. Ramone Smiley MD Work Phone: 6(131)800-249054 [place] [address] 02-06-2025 07:36-0400 Inhaled oxygen flow rate 2 L/min Dr. Ramone Smiley MD Work Phone: 8(162)292-052354 [place] [address] 02-04-2025 12:34-0400 Body height 160.[address] Ramone Smiley MD Work Phone: 6(692)722-717854 [place] [address] 02-04-2025 12:34-0400 Body mass index (BMI) [Ratio] 27.8 kg/m2 Dr. Ramone Smiley MD Work Phone: 6(473)911-901754 [place] [address] 02-04-2025 12:34-0400 Body weight 71.[address] Ramone mSiley MD Work Phone: 0(731)277-992054 [place] [address] 02-04-2025 11:06-0400 Body temperature 98.6 [degF] Dr. Ramone Smiley MD Work Phone: 1(591)566-278954 [place] [address] 02-04-2025 11:06-0400 Diastolic blood pressure 46 mm[Hg] Dr. Ramone Smiley MD Work Phone: 7(444)393-510554 [place] [address] 02-04-2025 11:06-0400 Heart rate 88 /min Dr. Ramone Smiley MD Work Phone: 5(686)863-878554 [place] [address] 02-04-2025 11:06-0400 Respiratory rate 30 /min Dr. Ramone Smiley MD Work Phone: 0(591)301-362516 [place] [address] 02-04-2025 11:06-0400 SaO2% (BldA) [Mass fraction] 99 % Dr. Ramone Smiley MD Work Phone: 9(274)894-161054 [place] [address] 02-04-2025 11:06-0400 Systolic blood pressure 111 mm[Hg] Dr. Ramone Smiley MD Work Phone: 6(606)886-441254 [place] [address] 02-04-2025 11:00-0400 Inhaled oxygen flow rate 3 L/min Dr. Ramone Smiley MD Work Phone: 5(537)112-384754 [place] [address] 02-04-2025 06:20-0400 Body height 160.[address] Ramone Smiley MD Work Phone: 6(100)109-781154 [place] [address] 02-04-2025 06:20-0400 Body mass index (BMI) [Ratio] 29.9 kg/m2 Dr. Ramone Smiley MD Work Phone: 5(006)309-741154 [place] [address] 02-04-2025 06:20-0400 Body weight 76.[address] Ramone Smiley MD Work Phone: 6(039)841-992054 [place] [address] 01-31-2025 06:28-0400 Body mass index (BMI) [Ratio] 27.4 kg/m2 Dr. Ramone Smiley MD Work Phone: 0(256)279-925954 [place] [address] 01-31-2025 06:28-0400 Body weight 70.[address] Ramone Smiley MD Work Phone: 8(052)689-437254 [place] [address] 01-31-2025 06:28-0400 Diastolic blood pressure 59 mm[Hg] Dr. Ramone Smiley MD Work Phone: 3(489)968-958754 [place] [address] 01-31-2025 06:28-0400 Heart rate 95 /min Dr. Ramone Smiley MD Work Phone: 4(089)920-238654 [place] [address] 01-31-2025 06:28-0400 Respiratory rate 18 /min Dr. Ramone Smiley MD Work Phone: 1(608)232-220754 [place] [address] 01-31-2025 06:28-0400 SaO2% (BldA) [Mass fraction] 95 % Dr. Ramone Smiley MD Work Phone: [facility] 01-31-2025 06:28-0400 Systolic blood pressure 107 mm[Hg] Dr. Ramone Smiley MD Work Phone: [facility] 01-26-2025 05:13-0400 Body temperature 98.3 [degF] Dr. Ramone Smiley MD Work Phone: [facility] 01-26-2025 05:13-0400 Diastolic blood pressure 72 mm[Hg] Dr. Ramone Smiley MD Work Phone: 2(609)053-056216 [place] [address] 01-26-2025 05:13-0400 Heart rate 83 /min Dr. Ramone Smiley MD Work Phone: [facility] 01-26-2025 05:13-0400 Respiratory rate 18 /min Dr. Ramone Smiley MD Work Phone: 8(481)703-035816 [place] [address] 01-26-2025 05:13-0400 SaO2% (BldA) [Mass fraction] 97 % Dr. Ramone Smiley MD Work Phone: [facility] 01-26-2025 05:13-0400 Systolic blood pressure 116 mm[Hg] Dr. Ramone Smiley MD Work Phone: [facility] 01-26-2025 03:02-0400 Body height 160.[address] Ramone Smiley MD Work Phone: [facility] 01-26-2025 03:02-0400 Body mass index (BMI) [Ratio] 31.4 kg/m2 Dr. Ramone Smiley MD Work Phone: [facility] 01-26-2025 03:02-0400 Body weight 80.[address] Ramone Smiley MD Work Phone: [facility] 01-24-2025 13:57-0400 Body temperature 97.4 [degF] Dr. Ramone Smiley MD Work Phone: [facility] 01-24-2025 13:57-0400 Diastolic blood pressure 68 mm[Hg] Dr. Ramone Smiley MD Work Phone: 4(335)621-893516 [place] [address] 01-24-2025 13:57-0400 Heart rate 87 /min Dr. Ramone Smiley MD Work Phone: 9(458)495-103054 [place] [address] 01-24-2025 13:57-0400 Respiratory rate 16 /min Dr. Ramone Smiley MD Work Phone: 4(507)736-970354 [place] [address] 01-24-2025 13:57-0400 SaO2% (BldA) [Mass fraction] 97 % Dr. Ramone Smiley MD Work Phone: 4(471)863-169454 [place] [address] 01-24-2025 13:57-0400 Systolic blood pressure 111 mm[Hg] Dr. Ramone Smiley MD Work Phone: 8(172)262-717654 [place] [address] 01-24-2025 05:23-0400 Body mass index (BMI) [Ratio] 30.7 kg/m2 Dr. Ramone Smiley MD Work Phone: 7(891)332-529754 [place] [address] 01-24-2025 05:23-0400 Body weight 78.[address] Ramone Smiley MD Work Phone: 6(005)599-140054 [place] [address] 01-22-2025 14:00-0400 Inhaled oxygen concentration 24 % Dr. Ramone Smiley MD Work Phone: 1(847)022-970854 [place] [address] 01-22-2025 11:00-0400 Inhaled oxygen flow rate 2 L/min Dr. Ramone Smiley MD Work Phone: 1(162)469-841254 [place] [address] 01-20-2025 10:06-0400 Body height 160.[address] Ramone Smiley MD Work Phone: 3(805)323-041154 [place] [address] 01-15-2025 18:58-0400 Body temperature 97.9 [degF] Dr. Ramone Smiley MD Work Phone: 8(189)553-155954 [place] [address] 01-15-2025 18:58-0400 Diastolic blood pressure 70 mm[Hg] Dr. Ramone Smiley MD Work Phone: 5(110)421-691154 [place] [address] 01-15-2025 18:58-0400 Heart rate 69 /min Dr. Ramone Smiley MD Work Phone: [facility] 01-15-2025 18:58-0400 Respiratory rate 22 /min Dr. Ramone Smiley MD Work Phone: 8(029)336-022654 [place] [address] 01-15-2025 18:58-0400 SaO2% (BldA) [Mass fraction] 98 % Dr. Ramone Smiley MD Work Phone: 5(000)879-563254 [place] [address] 01-15-2025 18:58-0400 Systolic blood pressure 130 mm[Hg] Dr. Ramone Smiley MD Work Phone: 5(996)558-904954 [place] [address] 01-15-2025 14:14-0400 Body height 160.[address] Ramone Smiley MD Work Phone: 6(868)157-107954 [place] [address] 01-15-2025 14:14-0400 Body mass index (BMI) [Ratio] 32.3 kg/m2 Dr. Ramone Smiley MD Work Phone: 5(476)910-202754 [place] [address] 01-15-2025 14:14-0400 Body weight 82.[address] Ramone Smiley MD Work Phone: 9(397)416-050354 [place] [address] 01-07-2025 17:34-0400 Body temperature 97.6 [degF] Dr. Ramone Smiley MD Work Phone: 6(368)912-912654 [place] [address] 01-07-2025 17:34-0400 Diastolic blood pressure 78 mm[Hg] Dr. Ramone Smiley MD Work Phone: 3(888)264-847854 [place] [address] 01-07-2025 17:34-0400 Heart rate 82 /min Dr. Ramone Smiley MD Work Phone: 8(308)982-910654 [place] [address] 01-07-2025 17:34-0400 Respiratory rate 19 /min Dr. Ramone Smiley MD Work Phone: 7(756)239-905654 [place] [address] 01-07-2025 17:34-0400 SaO2% (BldA) [Mass fraction] 97 % Dr. Ramone Smiley MD Work Phone: 9(548)849-732954 [place] [address] 01-07-2025 17:34-0400 Systolic blood pressure 147 mm[Hg] Dr. Ramone Smiley MD Work Phone: [facility] 01-07-2025 14:56-0400 Body height 160.[address] Ramone Smiley MD Work Phone: [facility] 01-07-2025 14:56-0400 Body mass index (BMI) [Ratio] 31.5 kg/m2 Dr. Ramone Smiley MD Work Phone: [facility] 01-07-2025 14:56-0400 Body weight 80.[address] Ramone Smiley MD Work Phone: [facility] 12-30-2023 14:14-0400 Body temperature 98.9 [degF] Dr. Ramone Smiley Work Phone: [facility] 12-30-2023 14:14-0400 Diastolic blood pressure 60 mm[Hg] Dr. Ramone Smiley Work Phone: [facility] 12-30-2023 14:14-0400 Heart rate 80 /min Dr. Ramone Smiley Work Phone: [facility] 12-30-2023 14:14-0400 Respiratory rate 18 /min Dr. Ramone Smiley Work Phone: [facility] 12-30-2023 14:14-0400 SaO2% (BldA) [Mass fraction] 95 % Dr. Ramone Smiley Work Phone: [facility] 12-30-2023 14:14-0400 Systolic blood pressure 131 mm[Hg] Dr. Ramone Smiley Work Phone: [facility] 12-29-2023 07:09-0400 Inhaled oxygen flow rate 2 L/min Dr. Ramone Smiley Work Phone: [facility] 12-28-2023 11:27-0400 Body height 160.[address] Ramone Smiley Work Phone: [facility] 12-28-2023 11:27-0400 Body mass index (BMI) [Ratio] 27.8 kg/m2 Dr. Ramone Smiley Work Phone: [facility] 12-28-2023 11:27-0400 Body weight 71.[address] Ramone Smiley Work Phone: [facility] 12-27-2023 23:42-0400 Body temperature 97.5 [degF] [facility] 12-27-2023 23:42-0400 Diastolic blood pressure 59 mm[Hg] [facility] 12-27-2023 23:42-0400 Heart rate 77 /min [facility] 12-27-2023 23:42-0400 Respiratory rate 20 /min [facility] 12-27-2023 23:42-0400 SaO2% (BldA) [Mass fraction] 97 % [facility] 12-27-2023 23:42-0400 Systolic blood pressure 159 mm[Hg] [facility] 12-27-2023 22:06-0400 Body height 160.02 cm [facility] 12-27-2023 22:06-0400 Body mass index (BMI) [Ratio] 29.5 kg/m2 [facility] 12-27-2023 22:06-0400 Body weight 75.6 kg [facility] 08-17-2023 13:26-0500 Body temperature 97.1 [degF] Dr. Ramone Smiley Work Phone: [facility] 08-17-2023 13:26-0500 Diastolic blood pressure 65 mm[Hg] Dr. Ramone Smiley Work Phone: [facility] 08-17-2023 13:26-0500 Heart rate 84 /min Dr. Ramone Smiley Work Phone: [facility] 08-17-2023 13:26-0500 Respiratory rate 18 /min Dr. Ramone Smiley Work Phone: [facility] 08-17-2023 13:26-0500 SaO2% (BldA) [Mass fraction] 98 % Dr. Ramone Smiley Work Phone: [facility] 08-17-2023 13:26-0500 Systolic blood pressure 140 mm[Hg] Dr. Ramone Smiley Work Phone: [facility] 08-14-2023 13:28-0500 Body height 160.[address] Ramone Smiley Work Phone: [facility] 08-14-2023 13:28-0500 Body weight 60.[address] Ramone Smiley Work Phone: [facility] 08-13-2023 15:22-0500 Body mass index (BMI) [Ratio] 23.4 kg/m2 Dr. Ramone Smiley Work Phone: [facility] 08-13-2023 14:18-0500 Body temperature 98.6 [degF] Dr. Ramone Smiley Work Phone: [facility] 08-13-2023 14:18-0500 Diastolic blood pressure 59 mm[Hg] Dr. Ramone Smiley Work Phone: [facility] 08-13-2023 14:18-0500 Heart rate 107 /min Dr. Ramone Smiley Work Phone: [facility] 08-13-2023 14:18-0500 Respiratory rate 20 /min Dr. Ramone Smiley Work Phone: [facility] 08-13-2023 14:18-0500 SaO2% (BldA) [Mass fraction] 97 % Dr. Ramone Smiley Work Phone: [facility] 08-13-2023 14:18-0500 Systolic blood pressure 152 mm[Hg] Dr. Ramone Smiley Work Phone: [facility] 08-13-2023 10:03-0500 Body height 160.[address] Ramone Smiley Work Phone: [facility] 08-13-2023 10:03-0500 Body mass index (BMI) [Ratio] 24.5 kg/m2 Dr. Ramone Smiley Work Phone: [facility] 08-13-2023 10:03-0500 Body weight [address] Ramone Smiley Work Phone: [facility] 08-07-2023 20:23-0500 Body temperature 97.6 [degF] Dr. Ramone Smiley Work Phone: [facility] 08-07-2023 20:23-0500 Diastolic blood pressure 51 mm[Hg] Dr. Ramone Smiley Work Phone: [facility] 08-07-2023 20:23-0500 Heart rate 87 /min Dr. Ramone Smiley Work Phone: [facility] 08-07-2023 20:23-0500 Respiratory rate 18 /min Dr. Ramone Smiley Work Phone: [facility] 08-07-2023 20:23-0500 SaO2% (BldA) [Mass fraction] 98 % Dr. Ramone Smiley Work Phone: [facility] 08-07-2023 20:23-0500 Systolic blood pressure 115 mm[Hg] Dr. Ramone Smiley Work Phone: [facility] 07-19-2023 01:01-0500 Diastolic blood pressure 61 mm[Hg] Dr. Ramone Smiley Work Phone: [facility] 07-19-2023 01:01-0500 Heart rate 101 /min Dr. Ramone Smiley Work Phone: [facility] 07-19-2023 01:01-0500 Respiratory rate 20 /min Dr. Ramone Smiley Work Phone: [facility] 07-19-2023 01:01-0500 Systolic blood pressure 145 mm[Hg] Dr. Ramone Smiley Work Phone: [facility] 07-18-2023 23:28-0500 Body mass index (BMI) [Ratio] 25.7 kg/m2 Dr. Ramone Smiley Work Phone: [facility] 07-18-2023 23:28-0500 Body weight 65.[address] Ramone Smiley Work Phone: [facility] 07-18-2023 22:47-0500 Body temperature 97.6 [degF] Dr. Ramone Smiley Work Phone: [facility] 07-18-2023 22:47-0500 SaO2% (BldA) [Mass fraction] 96 % Dr. Ramone Smiley Work Phone: [facility] 07-18-2023 22:44-0500 Body height 160.[address] Ramone Smiley Work Phone: [facility] 07-15-2023 13:24-0500 Body temperature 98.2 [degF] Dr. Ramone Smiley Work Phone: [facility] 07-15-2023 13:24-0500 Diastolic blood pressure 74 mm[Hg] Dr. Ramone Smiley Work Phone: [facility] 07-15-2023 13:24-0500 Heart rate 89 /min Dr. Ramone Smiley Work Phone: [facility] 07-15-2023 13:24-0500 SaO2% (BldA) [Mass fraction] 92 % Dr. Ramone Smiley Work Phone: [facility] 07-15-2023 13:24-0500 Systolic blood pressure 122 mm[Hg] Dr. Ramone Smiley Work Phone: [facility] 01-28-2023 16:36-0400 Diastolic blood pressure 63 mm[Hg] [facility] 01-28-2023 16:36-0400 Heart rate 75 /min [facility] 01-28-2023 16:36-0400 Systolic blood pressure 170 mm[Hg] [facility] 01-28-2023 14:54-0400 Body height 160.02 cm [facility] 01-28-2023 14:54-0400 Body mass index (BMI) [Ratio] 26.9 kg/m2 [facility] 01-28-2023 14:54-0400 Body temperature 97.8 [degF] [facility] 01-28-2023 14:54-0400 Body weight 69 kg [facility] 01-28-2023 14:54-0400 Respiratory rate 25 /min [facility] 01-28-2023 14:54-0400 SaO2% (BldA) [Mass fraction] 97 % [facility] 07-14-2022 18:11-0500 Diastolic blood pressure 64 mm[Hg] [facility] Work Phone: 07-14-2022 18:11-0500 Heart rate 73 /min [facility] Work Phone: 07-14-2022 18:11-0500 Respiratory rate 18 /min [facility] Work Phone: 07-14-2022 18:11-0500 SaO2% (BldA) [Mass fraction] 98 % [facility] Work Phone: 07-14-2022 18:11-0500 Systolic blood pressure 174 mm[Hg] [facility] Work Phone: 07-14-2022 11:59-0500 Body height 160.02 cm [facility] Work Phone: 07-14-2022 11:59-0500 Body mass index (BMI) [Ratio] 31.1 kg/m2 [facility] Work Phone: 07-14-2022 11:59-0500 Body temperature 97.2 [degF] [facility] Work Phone: 07-14-2022 11:59-0500 Body weight 79.83 kg [facility] Work Phone: 05-07-2022 13:26-0400 Body height 158.1 cm 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 SOLUTIONS DEVELOPMENT ANALYST.COPPER FLOTATION OPERATOR Work Phone: [facility] 05-07-2022 13:26-0400 Body temperature 97.2 [degF] 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 SOLUTIONS DEVELOPMENT ANALYST.COPPER FLOTATION OPERATOR Work Phone: [facility] 05-07-2022 13:26-0400 Body weight 73.71 kg 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 SOLUTIONS DEVELOPMENT ANALYST.COPPER FLOTATION OPERATOR Work Phone: [facility] 05-07-2022 13:26-0400 Diastolic blood pressure 68 mm[Hg] 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 SOLUTIONS DEVELOPMENT ANALYST.COPPER FLOTATION OPERATOR Work Phone: [facility] 05-07-2022 13:26-0400 Heart rate 66 /min 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 SOLUTIONS DEVELOPMENT ANALYST.COPPER FLOTATION OPERATOR Work Phone: [facility] 05-07-2022 13:26-0400 Systolic blood pressure 160 mm[Hg] 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 SOLUTIONS DEVELOPMENT ANALYST.COPPER FLOTATION OPERATOR Work Phone: [facility] 02-26-2022 09:43-0400 Body height 160.[address] Ramone Smiley Work Phone: [facility] Work Phone: 02-26-2022 09:43-0400 Body mass index (BMI) [Ratio] 28.1 kg/m2 Dr. Ramone Smiley Work Phone: [facility] Work Phone: 02-26-2022 09:43-0400 Body temperature 97.9 [degF] Dr. Ramone Smiley Work Phone: [facility] Work Phone: 02-26-2022 09:43-0400 Body weight 72.[address] Ramone Smiley Work Phone: [facility] Work Phone: 02-26-2022 09:43-0400 Diastolic blood pressure 80 mm[Hg] Dr. Ramone Smiley Work Phone: [facility] Work Phone: 02-26-2022 09:43-0400 Heart rate 70 /min Dr. aRmone Smiley Work Phone: [facility] Work Phone: 02-26-2022 09:43-0400 Respiratory rate 14 /min Dr. Ramone Smiley Work Phone: [facility] Work Phone: 02-26-2022 09:43-0400 SaO2% (BldA) [Mass fraction] 98 % Dr. Ramone Smiley Work Phone: [facility] Work Phone: 02-26-2022 09:43-0400 Systolic blood pressure 134 mm[Hg] Dr. Ramone Smiley Work Phone: [facility] Work Phone: 12-17-2021 13:23-0400 Diastolic blood pressure 60 mm[Hg] Dr. Ramone Smiley Work Phone: [facility] Work Phone: 12-17-2021 13:23-0400 Systolic blood pressure 154 mm[Hg] Dr. Ramone Smiley Work Phone: [facility] Work Phone: 12-10-2021 10:34-0400 Diastolic blood pressure 70 mm[Hg] Dr. Ramone Smiley Work Phone: [facility] Work Phone: 12-10-2021 10:34-0400 Systolic blood pressure 124 mm[Hg] Dr. Ramone Smiley Work Phone: [facility] Work Phone: 12-06-2021 15:22-0400 Body mass index (BMI) [Ratio] 30.2 kg/m2 Dr. Ramone Smiley Work Phone: [facility] Work Phone: 12-06-2021 15:22-0400 Body weight 77.[address] Ramone Smiley Work Phone: [facility] Work Phone: 12-06-2021 15:22-0400 Diastolic blood pressure 84 mm[Hg] Dr. Ramone Smiley Work Phone: [facility] Work Phone: 12-06-2021 15:22-0400 Systolic blood pressure 122 mm[Hg] Dr. Ramone Smiley Work Phone: [facility] Work Phone: 12-06-2021 15:22-0400 Body height 160.[address] Ramone Smiley Work Phone: [facility] Work Phone: 12-06-2021 15:22-0400 Body mass index (BMI) [Ratio] 30.2 kg/m2 Dr. Ramone Smiley Work Phone: [facility] Work Phone: 12-06-2021 15:22-0400 Body weight 77.[address] Ramone Smiley Work Phone: [facility] Work Phone: 12-06-2021 15:22-0400 Diastolic blood pressure 84 mm[Hg] Dr. Ramone Smiley Work Phone: [facility] Work Phone: 12-06-2021 15:22-0400 Systolic blood pressure 122 mm[Hg] Dr. Ramone Smiley Work Phone: [facility] Work Phone: 12-04-2021 11:22-0400 Diastolic blood pressure 70 mm[Hg] Dr. Ramone Smiley Work Phone: [facility] Work Phone: 12-04-2021 11:22-0400 Systolic blood pressure 124 mm[Hg] Dr. Ramone Smiley Work Phone: [facility] Work Phone: 12-04-2021 11:22-0400 Diastolic blood pressure 70 mm[Hg] Dr. Ramone Smiley Work Phone: [facility] Work Phone: 12-04-2021 11:22-0400 Systolic blood pressure 124 mm[Hg] Dr. Ramone Smiley Work Phone: [facility] Work Phone: 12-02-2021 14:03-0400 Diastolic blood pressure 60 mm[Hg] Dr. Ramone Smiley Work Phone: [facility] Work Phone: 12-02-2021 14:03-0400 Systolic blood pressure 138 mm[Hg] Dr. Ramone Smiley Work Phone: [facility] Work Phone: 12-02-2021 14:03-0400 Diastolic blood pressure 60 mm[Hg] Dr. Ramone Smiley Work Phone: [facility] Work Phone: 12-02-2021 14:03-0400 Systolic blood pressure 138 mm[Hg] Dr. Ramone Smiley Work Phone: [facility] Work Phone: 01-13-2017 14:21-0400 BMI (Body [...] 01-13-2017 14:21-0400 Weight 79.2 kg Zuleika Heaton [facility] Work Phone: 10-09-2015 11:00-0500 BSA (Body Surface Area) 1.91 m2 Zuleika Heaton [facility] Work Phone: 08-29-2015 11:19-0500 Heart rate 109 /min Zuleika Heaton [facility] Work Phone: Encounters Encounter Date Encounter Type Care Provider Facility Start: 02-18-2025 End: 02-19-2025 Dr. Ramone Smiley MD Work Phone: -Emergency Department Work Phone: Start: 02-18-2025 End: 02-19-2025 Emergency department patient visit Dr. Ramone Smiley MD Work Phone: [facility] Work Phone: Start: 02-17-2025 Dr. Heydi Amaya MD -[facility] Work Phone: Start: 02-16-2025 Dr. Heydi Amaya MD -[facility] Work Phone: Start: 02-15-2025 End: 02-17-2025 [facility] Dhruv Facility:[facility] Start: 02-15-2025 End: 02-17-[address] Ramone Smiley MD Work Phone: [facility] Work Phone: Start: 02-15-2025 End: 02-17-2025 Dr. Nestor Bartlett DO -[facility] Surgical 3 Work Phone: Start: 02-13-2025 Dr. Lucio Borden -[facility] Work Phone: Start: 02-12-2025 Dr. Lucio Borden [facility] Work Phone: Start: 02-11-2025 Dr. Lucio Borden [facility] Work Phone: Start: 02-10-2025 Dr. Lucio Borden DO [facility] Work Phone: Start: 02-09-2025 ambulatory Lucio Multani y:[facility] Start: 02-09-2025 End: 02-13-2025 Evaluation and management of inpatient Dr. Ramone Smiley MD Work Phone: [facility] Work Phone: Start: 02-09-2025 End: 02-13-2025 Tono Gomez [facility] Work Phone: Start: 02-07-2025 End: 02-07-[address] Ramone Smiley MD Work Phone: [facility] Work Phone: Start: 02-07-2025 End: 02-07-2025 Dr. Ramone Smiley MD -[facility] Start: 02-07-2025 End: 02-07-2025 ambulatory Ramone Smiley Facility:[facility] Start: 02-06-2025 Dr. Lucio Borden DO [facility] Work Phone: Start: 02-05-2025 Dr. Lucio Borden [facility] Work Phone: Start: 02-04-2025 Dr. Lucio Borden DO [facility] Work Phone: Start: 02-04-2025 ambulatory Lucio Multani y:[facility] Start: 02-04-2025 End: 02-06-2025 Evaluation and management of inpatient Dr. Ramone Smiley MD Work Phone: [facility] Work Phone: Start: 02-04-2025 End: 02-06-2025 Dr. Lucio Borden DO -[facility] Work Phone: Start: 01-31-2025 End: 01-31-2025 Whitney SUGGS -[facility] Work Phone: Start: 01-31-2025 End: 01-31-[address] Ramone Smiley MD Work Phone: [facility] Work Phone: Start: 01-26-2025 End: 01-26-2025 Dr. Ramone Smiley MD Work Phone: -Emergency Department Work Phone: Start: 01-26-2025 End: 01-26-2025 Emergency department patient visit Dr. Ramone Smiley MD Work Phone: [facility] Work Phone: Start: 01-24-2025 Dr. Melba Hartmann MD - [facility] Work Phone: Start: 01-23-2025 Dr. Becca Silverman MD -[facility] Start: 01-23-2025 Dr. Melba Hartmann MD - [facility] Work Phone: Start: 01-22-2025 Dr. Melba Hartmann MD - [facility] Work Phone: Start: 01-21-2025 Dr. Melba Hartmann MD - [facility] Work Phone: Start: 01-20-2025 ambulatory Ramone Smiley Facility:[facility] Start: 01-20-2025 Dr. Marcelina Soto MD -[facility] Start: 01-20-2025 ambulatory Sandeep Carlton Facillety ty:[facility] Start: 01-20-2025 End: 01-24-2025 Evaluation and management of inpatient Dr. Ramone Smiley MD Work Phone: [facility] Work Phone: Start: 01-20-2025 End: 01-24-2025 Dr. Melba Hartmann MD -Progressive Care Unit Work Phone: Start: 01-19-2025 End: 01-19-[address] Ramone Smiley MD Work Phone: [facility] Work Phone: Start: 01-19-2025 End: 01-19-2025 Dr. Ramone Smiley MD -Laboratory [facility] Start: 01-19-2025 End: 01-19-2025 ambulatory Ramone Smiley Facility:[facility] Start: 01-15-2025 End: 01-15-2025 Dr. Jeevan [...] Work Phone: Start: 11-21-2024 ambulatory Ramone Smiley Facility:[facility] Start: 11-21-[address] Ramone Smiley MD -Physical Therapy Work Phone: Start: 11-21-2024 Dr. Ramone Smiley MD -Phys ical Therapy Work Phone: Start: 09-27-2024 End: 09-27-[address] Ramone Smiley MD -Laboratory, [facility] Start: 09-27-2024 End: 09-27-2024 Dr. Ramone Smiley MD -Laboratory [facility] Start: 09-27-2024 End: 09-27-2024 ambulatory Ramone Smiley Facility:[facility] Start: 07-19-2024 End: 07-19-2024 ambulatory Ramone Smiley Facility:[facility] Start: 06-19-2024 End: 06-20-2024 Emergency department patient visit Billy Kothari Facility:[facility] Start: 05-30-2024 End: 05-30-2024 Emergency department patient visit Ramone Smiley Facility:[facility] Start: 05-18-2024 End: 05-18-2024 ambulatory Jason BHATTI Facility:[facility] Start: 04-18-2024 End: 04-18-2024 ambulatory Ramone Smiley Facility:[facility] Start: 03-25-2024 End: 03-25-2024 ambulatory Gabriel Byrd Facility:[facility] Start: 12-30-2023 Non-patient / Non-visit Dr. Richar Smiley Work Phone: [facility] Work Phone: Start: 12-29-2023 Non-patient / Non-visit Dr. Richar Smiley Work Phone: [facility] Work Phone: Start: 12-28-2023 Non-patient / Non-visit Dr. Richar Smiley Work Phone: [facility] Work Phone: Start: 12-27-2023 End: 12-30-2023 Evaluation and management of inpatient [facility]-Medical Surgical 3 Work Phone: Start: 10-26-2023 End: 10-26-[address] Ramone Smiley Work Phone: [facility] Work Phone: Start: 10-26-2023 End: 10-26-[address] Ramone Smiley Work Phone: [facility] Start: 08-17-2023 Non-patient / Non-visit Dr. Richar Smiley Work Phone: [facility] Work Phone: Start: 08-16-2023 Non-patient / Non-visit Dr. Richar Smiley Work Phone: [facility] Work Phone: Start: 08-15-2023 Non-patient / Non-visit Dr. Richar Smiley Work Phone: [facility] Work Phone: Start: 08-14-2023 Non-patient / Non-visit Dr. Richar Smiley Work Phone: [facility] Work Phone: Start: 08-13-2023 End: 08-17-2023 Evaluation and management of inpatient Dr. Ramone Smiley Work Phone: [facility]-Progressive Care Unit Work Phone: Start: 08-07-2023 End: 08-07-2023 Emergency department patient visit Dr. Ramone Smiley Work Phone: [facility]-Emergency Department Work Phone: Start: 07-18-2023 End: 07-19-2023 Emergency department patient [facility] Start: 07-15-2023 End: 07-15-[address] Ramone Smiley Work Phone: [facility] Work Phone: Start: 06-01-2023 End: 06-01-[address] Ramone Smiley Work Phone: [facility]-Laboratory, Specimen Work Phone: Start: 05-27-2023 End: 05-27-[address] Ramone Smiley Work Phone: [facility]-Laboratory, [place] Work Phone: Start: 05-15-2023 End: 05-15-[address] Ramone Smiley Work Phone: [facility]-Radiology, [place] Work Phone: Start: 03-24-2023 End: 03-24-2023 ambulatory [facility] Work Phone: Start: 03-24-2023 End: 03-24-2023 Patient encounter procedure [facility]-Ultrasound, [facility] Work Phone: Start: 02-05-2023 End: 02-05-2023 ambulatory [facility] Work Phone: Start: 02-05-2023 End: 02-05-2023 Patient encounter procedure [facility]-Ultrasound, [facility] Start: 01-28-2023 End: 01-28-2023 Emergency department patient visit [facility]-Emergency Department Start: 01-28-2023 End: 01-28-2023 ambulatory [facility] Work Phone: Start: 01-28-2023 End: 01-28-2023 Patient encounter procedure [facility] Start: 12-09-2022 End: 12-09-2022 ambulatory [facility] Work Phone: Start: 12-09-2022 End: 12-09-2022 Patient encounter procedure [facility] Start: 08-13-2022 End: 08-13-2022 ambulatory [facility] Work Phone: Start: 08-13-2022 End: 08-13-2022 Patient encounter procedure [facility]-Outpatient Breast Imaging Start: 07-14-2022 End: 07-14-2022 Emergency department patient visit [facility]-Emergency Department Start: 05-07-2022 End: 05-07-2022 ambulatory Anetayumi Iraheta APRN.COPPER FLOTATION OPERATOR Work Phone: Hematology/Oncology Comment on above: Iron deficiency anem ia due to chronic blood loss (Primary Dx) Start: 05-07-2022 End: 05-07-2022 Patient encounter procedure 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 APRN.COPPER FLOTATION OPERATOR Work Phone: [facility] Start: 02-27-2022 End: 02-27-[address] Ramone Smiley Work Phone: [facility]-Ultrasound, [facility] Start: 02-26-2022 End: 02-26-[address] Ramone Smiley Work Phone: [facility] Start: 02-10-2022 Telephone encounter Joseph sanders DO Work Phone: Hematology/Oncology Comment on above: Results (CBC and iro n levels) Start: 01-31-2022 Orders Only Joseph Lim Work Phone: Hematology/Oncology Comment on above: Iron deficiency anem ia due to chronic blood loss (Primary Dx) Start: 12-17-2021 End: 12-17-[address] Ramone Smiley Work Phone: [facility] Start: 12-10-2021 End: 12-10-[address] Ramone Smiley Work Phone: [facility] Start: 12-06-2021 End: 12-06-[address] Ramone Smiley Work Phone: [facility] Start: 12-04-2021 End: 12-04-[address] Ramone Smiley Work Phone: [facility] Start: 12-02-2021 End: 12-02-[address] Ramone Smiley Work Phone: [facility]-Laboratory, Specimen Start: 12-02-2021 End: 12-02-[address] Ramone Smiley Work Phone: [facility] Start: 09-29-2021 Telephone encounter Joseph sanders DO Work Phone: Hematology/Oncology Comment on above: Results; Follow Up Start: 09-13-2021 End: 09-13-[address] Ramone Smiley Work Phone: [facility]-Nuclear Medicine, [facility] Start: 08-21-[address] Ramone Smiley Work Phone: [facility]-Outpatient Breast Imaging Start: 08-12-2021 End: 08-12-[address] Ramone Smiley Work Phone: [facility] Start: 03-14-2021 Telephone encounter Joseph sanders DO Work Phone: Hematology/Oncology Comment on above: Results Start: 01-18-[address] [facility] Procedures Date Procedure Procedure Detail Performing Clinician Start: 02-18-2025 Plain chest X-ray Dr. Yoni Smiley MD Work Phone: Start: 02-18-2025 Blood count smear mc rscp w/mnl difrntl wbc count Dr. Ramone Smiley MD Work Phone: Start: 02-18-[address] Ramone Smiley MD Work Phone: Start: 02-18-2025 Mean corpuscular hem oglobin concentration determination Dr. Ramone Smiley MD Work Phone: Start: 02-18-2025 Nucleated red blood cell count procedure Dr. Ramone Smiley MD Work Phone: Start: 02-18-2025 Platelet mean volume determination Dr. Ramone Smiley MD Work Phone: Start: 02-17-2025 Blood count smear mc rscp [...] D niels Smiley MD Work Phone: Start: 02-16-2025 Respiratory microbia l culture Dr. Ramone Smiley MD Work Phone: Start: 02-15-2025 Plain [...] Start: 01-15-[address] Ramone Smilye MD Work Phone: Start: 01-15-2025 Mean corpuscular [...] End: 01-13-2017 Documentation of current medications Zuleika Sudarshan Start: 10-09-2015 End: 04-02-2016 Follow Up Appt 6 months Connor Rausch Start: 10-09-2015 End: 04-02-2016 BRODIE Good MD Start: 08-29-2015 End: 08-29-2015 CHIEF KNOWLEDGE OFFICER Se Good MD Start: 08-29-2015 End: 08-29-2015 Electrocardiogram, complete Se Lara i, MD Start: 08-29-2015 End: 08-29-2015 Follow Up Appt 6 weeks Se Good MD Anaerobic microbial culture Dr. Ramone Smiley Work Phone: Investigation of transfusion reaction Dr. Ramone Smiley Work Phone: Microbial culture, routine Mirza Smiley Work Phone: Urine culture Plan of Treatment Date Care Activity Detail Author Start: 03-07-2025 ambulatory Facility:[facility] Start: 02-19-2025 [facility] Start: 02-18-2025 [facility] Start: 02-17-2025 Patient discharge [facility] Start: 02-17-2025 [facility] Start: 02-16-2025 End: 02-16-2025 [facility] Start: 02-15-2025 [facility] Start: 02-15-2025 Following clinical pathway protocol [facility] Start: 02-15-2025 Ambulation without limitation [facility] Start: 02-15-2025 Assessment of risk o f venous thromboembolism [facility] Start: 02-15-2025 Care regimes management [facility] Start: 02-15-2025 Insertion of cathete r into peripheral vein [facility] Start: 02-15-2025 Notification of physician [facility] Start: 02-15-2025 Oxygen therapy [facility] Start: 02-15-2025 Providing care accor ding to standard [facility] Start: 02-15-2025 Referral to occupati onal therapist [facility] Start: 02-15-2025 Referral to service [facility] Start: 02-15-2025 [facility] Start: 02-15-2025 Verification routine [facility] Start: 02-15-2025 Admission procedure [facility] Start: 02-15-2025 Hospital admission, emergency, from emergency room, medical nature [facility] Start: 02-15-2025 [facility] Start: 02-15-2025 End: 02-15-2025 [facility] Start: 02-15-2025 Inhalation therapy procedure [facility] Start: 02-13-2025 Patient discharge [facility] Start: 02-11-2025 Inhalation therapy procedure [facility] Start: 02-10-2025 [facility] Start: 02-10-2025 Referral to service [facility] Start: 02-09-2025 Care regimes management [facility] Start: 02-09-2025 Notification of physician [facility] Start: 02-09-2025 [facility] Start: 02-09-2025 Following clinical pathway protocol [facility] Start: 02-09-2025 Ambulation without limitation [facility] Start: 02-09-2025 Assessment of risk o f venous thromboembolism [facility] Start: 02-09-2025 Catheterization of vein [facility] Start: 02-09-2025 Insertion of cathete r into peripheral vein [facility] Start: 02-09-2025 Oxygen therapy [facility] Start: 02-09-2025 Providing care accor ding to [facility] Start: 02-09-2025 Referral to occupati onal therapist [facility] Start: 02-09-2025 Referral to service [facility] Start: 02-09-2025 [facility] Start: 02-09-2025 Verification routine [facility] Start: 02-09-2025 Admission procedure [facility] Start: 02-09-2025 Hospital admission, emergency, from emergency room, medical nature [facility] Start: 02-09-2025 [facility] Start: 02-09-2025 Patient referral to dietitian [facility] Start: 02-06-2025 Patient discharge [facility] Start: 02-06-2025 Referral to service [facility] Start: 02-05-2025 [facility] Start: 02-04-2025 End: 02-04-2025 [facility] Start: 02-04-2025 Care regimes management [facility] Start: 02-04-2025 Notification of physician [facility] Start: 02-04-2025 Following clinical pathway protocol [facility] Start: 02-04-2025 Care planning and pr oblem solving actions [facility] Start: 02-04-2025 Ambulation without limitation [facility] Start: 02-04-2025 Assessment of risk o f venous thromboembolism [facility] Start: 02-04-2025 Catheterization of vein [facility] Start: 02-04-2025 Inhalation therapy procedure [facility] Start: 02-04-2025 Insertion of cathete r into peripheral vein [facility] Start: 02-04-2025 Oxygen therapy [facility] Start: 02-04-2025 Providing care accor ding to [facility] Start: 02-04-2025 [facility] Start: 02-04-2025 Hospital admission, emergency, from emergency room, medical nature [facility] Start: 02-04-2025 Verification routine [facility] Start: 02-04-2025 Admission procedure [facility] Start: 02-04-2025 [facility] Start: 02-04-2025 [facility] Start: 01-26-2025 [facility] Start: 01-24-2025 Referral to service [facility] Start: 01-24-2025 Patient discharge [facility] Start: 01-21-2025 [facility] Start: 01-21-2025 Referral to hay stacker operator [facility] Start: 01-20-2025 Oxygen therapy [facility] Start: 01-20-2025 Blood culture [facility] Start: 01-20-2025 Notification of physician [facility] Start: 01-20-2025 [facility] Start: 01-20-2025 End: 01-20-2025 [facility] Start: 01-20-2025 Application of intermittent pneumatic compression device [facility] Start: 01-20-2025 Following clinical pathway protocol [facility] Start: 01-20-2025 Cardiac monitoring [facility] Start: 01-20-2025 Catheterization of vein [facility] Start: 01-20-2025 Notification of physician [facility] Start: 01-20-2025 Vital signs measurements [facility] Start: 01-20-2025 Admission procedure [facility] Start: 01-20-2025 End: 01-20-2025 [facility] Start: 01-20-2025 Care regimes management [facility] Start: 01-20-2025 Inhalation therapy procedure [facility] Start: 01-20-2025 Patient referral to dietitian [facility] Start: 01-15-2025 [facility] Start: 01-15-2025 [facility] Start: 01-07-2025 [facility] Start: 12-30-2023 Patient discharge [facility] Start: 12-30-2023 Inhalation therapy procedure [facility] Start: 12-28-2023 Application of intermittent pneumatic compression device [facility] Start: 12-28-2023 Provision of overbed trapeze [facility] Start: 12-28-2023 Recommendation to continue with treatment [facility] Start: 12-28-2023 Ambulation therapy management [facility] Start: 12-28-2023 Application of device [facility] Start: 12-28-2023 Assessment of risk o f venous thromboembolism [facility] Start: 12-28-2023 Catheterization of vein [facility] Start: 12-28-2023 Exercises [facility] Start: 12-28-2023 Following clinical pathway protocol [facility] Start: 12-28-2023 Introduction of urin david catheter [facility] Start: 12-28-2023 Measuring intake and output [facility] Start: 12-28-2023 Neurovascular assessment [facility] Start: 12-28-2023 Patient education [facility] Start: 12-28-2023 Procedure discontinued [facility] Start: 12-28-2023 Provision of activit y privileges [facility] Start: 12-28-2023 Referral to occupati onal therapist [facility] Start: 12-28-2023 Referral to service [facility] Start: 12-28-2023 Vital signs measurements [facility] Start: 12-28-2023 Wound care [facility] Start: 12-28-2023 [facility] Start: 12-28-2023 Blood chemistry [facility] Start: 12-28-2023 Complete blood count [facility] Start: 12-28-2023 Following clinical pathway protocol [facility] Start: 12-28-2023 Assessment of risk o f venous thromboembolism [facility] Start: 12-28-2023 Care regimes management [facility] Start: 12-28-2023 Consultation [facility] Start: 12-28-2023 Incentive spirometry [facility] Start: 12-28-2023 Insertion of cathete r into peripheral vein [facility] Start: 12-28-2023 Notification of physician [facility] Start: 12-28-2023 Oxygen therapy [facility] Start: 12-28-2023 Providing care accor ding to standard [facility] Start: 12-28-2023 Provision of activit y privileges [facility] Start: 12-28-2023 Referral to occupati onal therapist [facility] Start: 12-28-2023 Referral to service [facility] Start: 12-28-2023 [facility] Start: 12-27-2023 Verification routine [facility] Start: 12-27-2023 Admission procedure [facility] Start: 08-17-2023 Referral to service [facility] Start: 08-17-2023 Patient discharge [facility] Start: 08-16-2023 [facility] Start: 08-13-2023 Following clinical pathway protocol [facility] Start: 08-13-2023 Assessment of risk o f venous thromboembolism [facility] Start: 08-13-2023 Care regimes management [facility] Start: 08-13-2023 Insertion of cathete r into peripheral vein [facility] Start: 08-13-2023 Measuring intake and output [facility] Start: 08-13-2023 Notification of physician [facility] Start: 08-13-2023 Providing care accor ding to standard [facility] Start: 08-13-2023 Provision of activit y privileges [facility] Start: 08-13-2023 Referral to occupati onal therapist [facility] Start: 08-13-2023 Referral to service [facility] Start: 08-13-2023 [facility] Start: 08-13-2023 Admission procedure [facility] Start: 08-13-2023 Verification routine [facility] Start: 08-13-2023 Bacteria identified in Blood by Culture Blood Culture [facility] Start: 08-13-2023 Bacteria identified in Urine by Culture Urine Culture [facility] Start: 08-13-2023 Hospital admission, emergency, from emergency room, medical nature [facility] Start: 08-13-2023 [facility] Start: 08-13-2023 End: 08-13-2023 Blood culture [facility] Start: 08-13-2023 Inhalation therapy procedure [facility] Start: 08-13-2023 Patient referral to dietitian [facility] Start: 08-07-2023 [facility] Start: 07-19-2023 End: 07-19-2023 [facility] Start: 07-18-2023 Measurement of occul t blood in stool specimen using immunoassay [facility] Start: 07-18-2023 Bacteria identified in Urine by Culture Urine Culture [facility] Start: 05-07-2022 BP CONTROLLED (<130/80) BP CONTROLLE D (<130/80) [facility] Start: 05-01-2022 Influenza vaccination [facility] Start: 03-28-2022 COVID-19 VACCINE (4 - Booster for Moderna series) COVID-19 VACCINE (4 - Booster for Moderna series) [facility] Start: 09-29-2021 End: 09-29-2022 MONOCLONAL PROTEIN, SERUM (BLOOD) MONOCLONAL PROTEIN, SERUM (BLOOD) Lab Routine Anemia, unspecified type Expected: 09/29/2021, Expires: 09/29/[address] [facility] Work Phone: Comment on above: Expected: 09/29/2021 , Expires: 09/29/2022 Start: 09-29-2021 End: 09-29-2022 PROTEIN ELECTROPHORESIS SERUM W/INTERP PROTEIN ELECTROPHORESIS SERUM W/INTERP Lab Routine Anemia, unspecified type Expected: 09/29/2021, Expires: 09/29/[address] [facility] Work Phone: Comment on above: Expected: 09/29/2021 , Expires: 09/29/2022 Start: 08-31-2021 ADVANCE DIRECTIVE DISCUSSION ADVANCE DIRECTIVE DISCUSSION [facility] Start: 05-16-2021 COVID-19 VACCINE (3 - Booster for Moderna series) COVID-19 VACCINE (3 - Booster for Moderna series) [facility] Start: 05-04-2018 Urine microalbumin profile DTAP,TDAP,TD (2 - Td or Tdap) [facility] Start: 08-16-2016 3 comp foot exam completed DIABETIC FOOT EXAM [facility] Start: 10-09-2015 End: 04-02-2016 Follow Up Appt 6 months Follow Up Appt 6 months [facility] Work Phone: Start: 10-09-2015 End: 04-02-2016 MMM MMM [facility] Work Phone: Start: 08-29-2015 End: 08-29-2015 CHIEF KNOWLEDGE OFFICER CHIEF KNOWLEDGE OFFICER [facility] Work Phone: Start: 08-29-2015 End: 08-29-2015 Electrocardiogram, complete EKG (In office) [facility] Work Phone: Start: 08-29-2015 End: 08-29-2015 Follow Up Appt 6 weeks Follow Up Appt 6 weeks [facility] Work Phone: Start: 07-01-2014 Hemoglobin A1c/Hemoglobin.total in Blood HBA1C [facility] Start: 06-25-2014 Hepatitis B surface antibody level LDL CHOLESTEROL [facility] Start: 06-17-2014 Hepatitis C antibody , confirmatory test DILATED RETINAL EXAM [facility] Start: 02-12-2013 PNEUMOCOCCAL: 65+ (2 - PCV) PNEUMOCOCCAL: 65+ (2 - PCV) [facility] Start: 02-12-2013 PNEUMOCOCCAL: 65+ (3 - PCV) PNEUMOCOCCAL: 65+ (3 - PCV) [facility] Start: 02-18-2012 SHINGRIX VACCINE (1 of 2) MORENO GRIX VACCINE (1 of 2) [facility] Start: 02-18-2012 SHINGRIX VACCINE (2 of 3) MORENO GRIX VACCINE (2 of 3) [facility] Start: 01-02-1962 ANNUAL PCP TEAM OYSTER TONGER ERIS DISEASE VISIT ANNUAL PCP TEAM CHRONIC DISEASE VISIT [facility] Start: 01-02-1962 BP CONTROLLED (<130/80) BP CONTROLLE D (<130/80) [facility] Start: 01-02-1962 HEPATITIS C SCREENING HEPATITIS C SC REENING [facility] Start: 1956 Adult depression screening assessment DEPRESSION SCREENING [facility] Anion gap measurement [facility] Bacteria identified in Sputum by Respiratory culture [facility] BUN/Creatinine ratio [facility] Calcium [Mass/volume ] in Serum or Plasma [facility] Carbon dioxide, tota l [Moles/volume] in Serum or Plasma [facility] End: 01-31-2023 CBC W Auto Differential panel - Blood CBC + DIFF Lab STAT Iron deficiency anemia due to chronic blood loss Every 3 months for 4 Occurrences starting 01/31/2022 until 01/31/[address] [facility] Work Phone: Comment on above: Every 3 months for 4 Occurrences starting 01/31/2022 until 01/31/2023 End: 09-29-2022 CBC W Auto Differential panel - Blood CBC + DIFF Lab Routine Anemia, unspecified type 1 Occurrences starting 09/29/2021 until 09/29/[address] [facility] Work Phone: Comment on above: 1 Occurrences starti ng 09/29/2021 until 09/29/2022 Chloride [Moles/volu me] in Serum or Plasma [facility] End: 09-29-2022 Comprehensive metabolic 2000 panel - Serum or Plasma COMP METABOLIC PANEL Lab Routine Anemia, unspecified type 1 Occurrences starting 09/29/2021 until 09/29/[address] [facility] Work Phone: Comment on above: 1 Occurrences starti ng 09/29/2021 until 09/29/2022 Creatinine [Moles/vo lume] in Serum or Plasma [facility] Erythrocyte mean corpuscular volume determination [facility] End: 01-31-2023 FERRITIN BLD FERRITIN BLD Lab Routine Iron deficiency anemia due to chronic blood loss Every 3 months for 4 Occurrences starting 01/31/2022 until 01/31/[address] [facility] Work Phone: Comment on above: Every 3 months for 4 Occurrences starting 01/31/2022 until 01/31/2023 Glucose [Mass/volume ] in Serum or Plasma [facility] Hematocrit [Volume Fraction] of Blood [facility] Hemoglobin [Mass/vol ume] in Blood [facility] Hemoglobin A1c/Hemoglobin.total in Blood [facility] End: 01-31-2023 IRON + TIBC IRON + TIBC Lab Routine Iron deficiency anemia due to chronic blood loss Every 3 months for 4 Occurrences starting 01/31/2022 until 01/31/[address] [facility] Work Phone: Comment on above: Every 3 months for 4 Occurrences starting 01/31/2022 until 01/31/2023 Leukocytes [#/volume ] in Blood [facility] Mean corpuscular hemoglobin concentration determination [facility] Mean corpuscular hemoglobin determination [facility] Measurement of renal function [facility] Microorganism identi fied in Unspecified specimen by Culture [facility] Microscopic observat ion [Identifier] in Unspecified specimen by Gram stain [facility] NM Heart Views W str ess and W radionuclide IV [facility] Patient Education [facility] Work Phone: Patient referral [facility] Work Phone: Platelets [#/volume] in Blood [facility] Potassium [Moles/vol ume] in Serum or Plasma [facility] Procalcitonin [Mass/volume] in Serum or Plasma by Immunoassay [facility] Red blood cell count [facility] Red cell distributio n width determination [facility] Sodium [Moles/volume ] in Serum or Plasma [facility] Troponin T.cardiac [Mass/volume] in Serum or Plasma by High sensitivity method [facility] Troponin T.cardiac [Mass/volume] in Serum or Plasma by High sensitivity method [facility] Urea nitrogen [Mass/volume] in Serum or Plasma [facility] US Heart limited [facility] Immunizations Immunization Date Immunization Notes Care Provider Fa cility 07-03-2022 influenza, injectabl e, quadrivalent, preservative free Dr. Ramone Smiley MD Work Phone: [facility] 11-26-2021 Covid (Moderna) Dr. Ramone leon MD Work Phone: [facility] 08-22-2015 pneumococcal conjuga te vaccine, [address] Ramone Smiley MD Work Phone: [facility] 07-12-2012 influenza virus vacc ine, unspecified formulation Joseph Rolle DO Work Phone: [facility] 02-13-2012 pneumococcal polysaccharide vaccine, 23 valent Joseph Rolle DO Work Phone: [facility] 12-24-2011 zoster vaccine, live Joseph Chen chatterjee DO Work Phone: [facility] 06-02-2011 influenza virus vacc ine, unspecified formulation Joseph Rolle DO Work Phone: [facility] 08-09-2010 influenza virus vacc ine, unspecified formulation Joseph Rolle DO Work Phone: [facility] 05-30-2009 influenza virus vacc ine, unspecified formulation Joseph Rolle DO Work Phone: [facility] 09-07-2008 influenza virus vacc ine, unspecified formulation Joseph Rolle DO Work Phone: [facility] Work Phone: 05-04-2008 tetanus toxoid, redu octavio diphtheria toxoid, and acellular pertussis vaccine, adsorbed Joseph Rolle DO Work Phone: [facility] Work Phone: 06-28-2007 influenza virus vacc ine, unspecified formulation Joseph Rolle DO Work Phone: [facility] Work Phone: 08-31-2005 pneumococcal polysaccharide vaccine, 23 valent Joseph Rolle DO Work Phone: [facility] Work Phone: Payers Date Payer Category Payer Self-pay [id number] 2017 Medicare [employer] MEDICARE HU[employer] MEDICARE PPO [id number] 2017-Present [phone] [place] [address] PPO [id number] 2017 Medicare [employer]NA MEDICARE HU[employer] MEDICARE PPO [id number] 2017-Present [phone] [place] [address] PPO [id number] 2016 Medicare [id number] Private Health Insurance Unknown [id number] [id number]. 2.462 Unknown [id number] ..840.1.180582.3.579. 2.462 Unknown [id number] 2.16.840.1.424769.3.579. 2.462 Unknown [id number] 2.16840.1.416078.3.579. 2.462 Unknown [id number] 2.16840.1.945274.3.579. 2.462 Unknown [id number] 2.16840.1.955316.3.579. 2.462 Unknown [id number] 2.16840.1.617157.3.579. 2.462 Unknown [id number] 2.840.1.242470.3.579. 2.462 Unknown [id number] 2.840.1.178113.3.579. 2.462 Unknown [id number] 2.840.1.142840.3.579. 2.462 Unknown [id number] 2.840.1.523731.3.579. 2.462 Unknown [id number] 2.840.1.352201.3.579. 2.462 Unknown [id number] 2.840.1.608373.3.579. 2.462 Unknown [id number] 2.840.1.158972.3.579. 2.462 Unknown [id number] 2.840.1.529268.3.579. 2.462 Unknown [id number] 2.840.1.683562.3.579. 2.462 Unknown [id number] 2.840.1.736301.3.579. 2.462 Unknown [id number] 2.840.1.666808.3.579. 2.462 Unknown [id number] 2.840.1.900470.3.579. 2.462 Unknown [id number] 2.16840.1.789942.3.579. 2.462 Unknown [id number] 2.16.840.1.948373.3.579. 2.462 Unknown [id number] 2.840.1.545321.3.579. 2.462 Unknown [id number] 2.840.1.025659.3.579. 2.462 Unknown [id number] 2.840.1.463522.3.579. 2.462 Unknown [id number] 2.840.1.580736.3.579. 2.462 Unknown [id number] 2.840.1.136463.3.579. 2.462 Unknown [id number] 2.840.1.149112.3.579. 2.462 Unknown [id number] 2.840.1.794119.3.579. 2.462 Unknown [id number] 2.840.1.690888.3.579. 2.462 Unknown [id number] .840.1.461582.3.579. 2.462 Unknown [id number] .840.1.983394.3.579. 2.462 Unknown [id number] .840.1.766704.3.579. 2.462 Unknown [id number] .840.1.818627.3.579. 2.462 Unknown [id number] 840.1.929430.3.579. 2.462 Unknown [id number] 2.462 Unknown [id number] 2.462 Unknown [id number] 2.462 Unknown [id number] 2.462 Social History Date Type Detail Facility Start: 12-06-2021 End: 08-13-2023 Tobacco smoking status FLIS Unknown if ever smoked [facility] Start: 12-02-2019 None [facility] Start: 12-02-2019 Spouse/ Signif icant Other [facility] Start: 07-06-2020 Non-smoker [facility] Start: 1945 Sex Assigned At Female [facility] Start: 02-03-2012 End: 02-18-2025 Tobacco smoking status NHIS Ex-smoker [facility] End: 01-30-2012 History of tobacco use Current smoker [facility] End: 01-30-2012 History of tobacco use Cigarette Smoker [facility] Start: 02-03-2012 End: 03-22-2012 Cigarettes smoked current (pack per day) - Reported 0.5 [facility] Start: 02-03-2012 End: 03-22-2012 Tobacco use and exposure Smokeless tobacco non-user [facility] Start: 05-07-2021 End: 05-07-2022 Alcohol intake Current non-drinker of alcohol (finding) [facility] Start: 1945 Sex Assigned At Not on file C [facility] Start: 10-05-2021 End: 11-04-2021 Exposure to SARS-CoV-2 (event) Not sure [facility] NEGATED: Highlighted row [facility] Medical Equipment Procedure Code Equipment Code Equipment Origin al Text Equipment Identifier Dates 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 Start: 12-28-2023 Primary uncemented hemiarthroplasty of hip unitrax neck adjustment sleeve FDA Start: 12-28-2023 Primary uncemented hemiarthroplasty of hip ([id number]) [id number] FDA Start: 12-28-2023 Primary uncemented hemiarthroplasty of [...] Assessment Result Facility 02-17-2025 Functional status Chair [facility] Work Phone: 02-16-2025 Functional [facility] Work Phone: 02-13-2025 [facility] Work Phone: 02-06-2025 Functional status Chair [facility] Work Phone: 01-24-2025 Functional status [facility]ulates [facility] Work Phone: 01-23-2025 Functional status Fair [facility] Work Phone: 12-30-2023 Functional status [facility] Work Phone: 08-17-2023 Functional status [facility]ulates [facility] Work Phone: Mental Status Date Assessment Result Facility 02-17-2025 Cognitive function [facility] Work Phone: 02-13-2025 Cognitive function Voice/Name [facility] Work Phone: 02-06-2025 Cognitive function Voice/Name [facility] Work Phone: 01-24-2025 Cognitive function Voice/Name [facility] Work Phone: 12-30-2023 Cognitive function Voice/Name [facility] Work Phone: 08-17-2023 Cognitive function Voice/Name [facility] Work Phone: 08-13-2023 Cognitive function Level Of Cons ciousness Awake;Alert;Appropriate;Follow s Commands [facility] Work Phone: 01-28-2023 Cognitive function Level Of Cons ciousness Awake;Alert;Appropriate;Follow s Commands [facility] Work Phone: Clinical Notes 03-14-2021 to 02-18-2025 Note Date & Type Note Facility 02-18-2025 Radiology Diagnostic study note [facility] 02-18-2025 Discharge summary Note Date/Time February 19, 2025 12:05am [facility] Medical Records Department [address] [place] [address] Emergency Department Summary 02/18/25 MR#: [id number] Acct: [id number] Name: OLGA DONALDSON Rep #:[id number] : 1945 80 From: Billy Kothari MD PCP: Dr. Ramone Smiley MD Status:REG ER Location: ED HPI History of Present Illness Chief Complaint: Shortness of Breath Narrative Narrative: 80-year-old female past medical history of COPD, wears 2 to 3 L of oxygen, [facility] from [facility] with increasing shortness of breath. Gonzales history that she was admitted to the hospital for breathing difficulty and was released on Thursday. This is approximately 5 days ago. She is only at the [facility] facility temporarily. She states she does not see a zoology teacher. She has been taking prednisone since discharge. She presents today with increasing shortness of breath and occasional cough. No fevers or chills. [facility] Medical History History of diabetes mellitus COPD exacerbation Hypoxia [...] mg tablet 25 mg PO BID BLOOD UT ESSURE 08/16/18 01/15/25 History pantoprazole 40 mg [...] EMENT 08/13/23 01/15/25 History tablet (Vitamin C) roflumilast 500 mcg tablet 500 mcg PO [...] Rx (2.5 mg base)/3 mL nebulization soln sacubitril 24 mg-valsartan 26 mg 1 tab PO BID #60 tabs 02/07/25 Unknown Rx tablet (Entresto) albuterol sulfate 90 mcg/actuation 2 puff inhalation Q 6H PRN 02/09/25 Unknown Hi story aerosol inhaler shortness of breath or wheez ing cetirizine 10 mg tablet 10 mg PO DAILY 02/09/25 Unkn own History hydroxyzine HCl 25 mg tablet 12.5 mg PO QHS allergies 02/09/25 Unknown History gabapentin 100 mg capsule 100 mg PO QHS NERVE PAIN 3 days 02/17/25 Unknown Rx #3 caps guaifenesin 600 mg tablet, 600 mg PO BID #0 tabs 02/17 Unknown Rx extended release 12 hr (Mucinex) prednisone 20 mg tablet See Taper PO BREAKFAST #15 t abs 02/17/25 Unknown Rx Allergy/AdvReac Type Severity Reaction Status Date / [...] ROS ED ROS Narrative Review of systems positive for cough, increasing shortness of breath with history of COPD. No fevers or chills, no increased leg swelling. EXAM Physical Exam Narrative Exam Narrative: Afebrile. Vital signs noted. Nontoxic-appearing. On my examination cardiovascular examination reveals a regular rate and rhythm. Decreased breath sounds bilateral bases but no overt wheezing, mild tachypnea but no accessory muscle use. Abdomen soft and nontender with normoactive bowel sounds. No guarding or rebound. No appreciable pedal edema bilaterally. Const Vital Signs: 02/18/25 20:51 02/18/25 20:58 02/18/25 21:10 Temperature 99.4 F H Temperature Source Oral Pulse Rate 113 H 99 Respiratory Rate 25 H 28 H Respiratory Effort Short of Breath Respiratory Depth Deep Respiratory Pattern Tachypnea Blood Pressure 138/61 H Blood Pressure Mean 86 Pulse Ox 99 Oxygen Delivery Method Nasal Cannula Nasal Cannula Oxygen Flow Rate (L/min) 2 21 02/18/25 21:56 02/18/25 22:00 02/18/25 22:20 Temperature 98.3 F 98.5 F Temperature Source Oral Oral Pulse Rate 97 99 Respiratory Rate 22 H 22 H Respiratory Effort Respiratory Depth Respiratory Pattern Blood Pressure 117/51 L 121/64 H Blood Pressure Mean 73 83 Pulse Ox 98 97 96 Oxygen Delivery Method Nasal Cannula Nasal Cannula Nasal Cannula Oxygen Flow Rate (L/min) 2 2 2 02/18/25 23:00 Temperature 98.5 F Temperature Source Oral Pulse Rate 101 H Respiratory Rate 26 H Respiratory Effort Respiratory Depth Respiratory Pattern Blood Pressure 141/59 H Blood Pressure Mean 86 Pulse Ox 98 Oxygen Delivery Method Nasal Cannula Oxygen Flow Rate (L/min) 2 MDM MDM MDM Narrative Medical decision making narrative: Differential diagnosis includes but not limited to COPD exacerbation versus pneumonia versus pneumothorax. History and physical does not support pneumothorax. I reviewed her prior records, and she was recently seen in the emergency department and was going to be discharged, and had a BNP of 4400 but this was improved from 9600. Family noted that they were having difficulty caring for her at home and wanted SNF placement hence, she was admitted then placed in [facility]. Says that she had history of pneumonia. I will repeat a chest x-ray and basic laboratory work. She is already feeling improved. EKG had been obtained and interpreted by myself independently as sinus tachycardia 105 bpm without ectopy or acute ST changes. No STEMI. I reviewed her laboratory work and she has slight elevation of her white count of 12.2 which I think may be from her steroid use. Hemoglobin is stable at 10.9when compared to prior labs. Platelet count 337. Initial potassium elevated 6.0, but it was hemolyzed. Repeat normal at 4.7, BUN of 25 and creatinine slightly elevated at 1.26 when compared to prior labs but this could be from furosemide. Glucose elevated at 174 but normal anion gap of 11. BNP is elevated at 3811 but this is improved when compared to prior in the 3999's as well. Chest x-ray in 1 view interpreted by myself independently shows no evidence of pneumonia, no consolidation, no pneumothorax. I reviewed the radiology report which confirms my independent interpretation. Repeat examination does show that she is resting comfortably and sleeping with good oxygen saturation on her nasal cannula oxygen. At this point in time, I donot feel she needs readmission to the hospital. She states she is on steroids and nebulizer treatments at the [facility] facility. She is motivated for discharge. Disposition is discharged home in stable condition. History & Record Review Discussion w/independent historian: Patient Additional record(s) reviewed:: Prior inpatient record, Prior ED visit and Priorlabs Lab Data Attestation: I reviewed the patient's lab results. Labs: Laboratory Results - last 24 hr 02/18/25 02/18/25 21:07 23:15 WBC 12.2 H RBC 3.91 L Hgb 10.9 L Hct 35.8 L MCV 91.6 MCH 27.9 MCHC 30.4 L RDW Std Deviation 52.1 H RDW Coeff of Vijay 15.9 H Plt Count 337 MPV 11.5 Immature Gran % (Auto) 0.900 Neut % (Auto) 78.7 H Lymph % (Auto) 12.5 L Irion % (Auto) 6.7 Eos % (Auto) 1.0 Baso % (Auto) 0.2 Absolute Neuts (auto) 9.6 H Absolute Lymphs (auto) 1.53 Nucleated RBC % 0 Sodium 136 Potassium 6.0 H* 4.7 Chloride 97 L Carbon Dioxide 28.1 Anion Gap 11 BUN 25 H Creatinine 1.26 H Estim Creat Clear Calc 34.58 L Est GFR (MDRD) Non-Af 43 L BUN/Creatinine Ratio 19.9 Glucose 174 H Calcium 10.7 NT pro BNP II 3811 H Radiography Diagnostic Testing: Clinical Impression(s) from Imaging Studies Chest X-Ray 02/18/25 22:30 IMPRESSION: Low lung volumes and body habitus limits evaluation. No obvious acute finding. Reading Location: [facility] Discharge Plan Triage Chief Complaint: Shortness of Breath ED Provider: Billy Kothari Dx/Rx/DC Orders Clinical Impression: Dyspnea, COPD exacerbation [...] 25 mg tablet 12.5 mg PO QHS guaifenesin [Mucinex] 600 mg Tablet Extended Release [...] BREAKFAST for 3 Days and 0 Hour gabapentin 100 mg capsule 100 mg PO [...] [Primary Care Provider] - Activity Restrictions/Additional Instructions: Continue your steroids and your nebulizer treatments as previously directed. Your chest x-ray did not show pneumonia today. Continue to wear your nasal cannula oxygen. Print Language: Citizen [place] Disposition Disposition: Home, Self Care What to do if you have Problems For any increased pain, shortness of breath, bleeding, nausea or vomiting, chestpain, or any unexpected problems, contact your Primary Care Provider. Call [facility] ([phone]) or report to the closest Emergency Room. Call 911 if necessary. 02/19/25 0005 <Electronically signed by Billy Kothari MD> Cosigner Signature (if applicable): CC: Dr. Ramone Smiley MD ~ Signed [facility] Work Phone: 1(828) 194-741706-20-2025 Discharge summary Author Heydi Amaya [facility] Note Date/Time February 17, 2025 5:15 pm [facility] Medical Records Department [address] [place] [address] Discharge Summary 02/17/25 1713 MR#: [id number] Acct: [id number] Name: OLGA DONALDSON Rep #:[id number] : 1945 80 From: Heydi Amaya MD PCP: Dr. Ramone Smiley MD Status:ADM TED Location: [facility] [id number] Providers Date of Admission: 02/15/25 Date of [...] netarsudil 0.02 %-latanoprost 0.005 % eye drops ([facility]) 1 drp EACH EYE DAILYeye drops 01/15/25 psyllium husk 0.4 gram capsule (Daily Fiber) 0.4 g PO DAILY constipation 01/15/25 tirzepatide 5 mg/0.5 mL subcutaneous pen injector ([place]) 5 mg subcut QWEEK diabetes 01/15/25 potassium [...] GERD, COPD, hypertension, diabetes who presented to [facility] ED 02/16/2025 with shortness of breath [...] (Auto) 86.1 H, Lymph % (Auto) 7.8L, Irion % (Auto) 5.0, Eos % (Auto) 0.1, [...] in before D/C Order can be placed): Usp Facility Charges/Coding Visit Charges Inpatient E&M: 36007 Disch Hosp 02/17/251714 <Electronically signed by Heydi Amaya MD> Cosigner Signature (if applicable): CC: Dr. Ramone Smiley MD; Dr. Heydi Amaya MD~ Signed [facility] Work Phone: 1(964) 389-240806-20-2025 Discharge summary Author Heydi Amaya [facility] Note Date/Time February 17, 2025 5:13 pm [facility] Medical Records Department [address] [place] [address] Transfer to Extended Care MR#: [id number] Acct: [id number] Name: OLGA DONALDSON Rep #:[id number] : 1945 80 From: Heydi Amaya MD PCP: Dr. Ramone Smiley MD Status:ADM TED Certification of patient admission REQUIRED AT TIME OF ADMISSION. I CERTIFY THAT POST-HOSPITAL ECF SERVICES ARE REQUIRED TO BE GIVEN ON AN IN-PATIENT BASIS BECAUSE OF THE ABOVE NAMED PATIENT'S NEED FOR PENITENTIARY CARE ON A CONTINUING BASIS FOR THE CONDITION(S) FOR WHICH HE/SHE WAS RECEIVING IN-PATIENT HOSPITAL SERVICES PRIOR TO HIS/HER TRANSFER TO THE [facility]. 02/17/25 1713<Electronically signed by Heydi Amaya MD> Diet Diet [...] GERD, COPD, hypertension, diabetes who presented to [facility] ED 02/16/2025 with shortness of breath [...] in before D/C Order can be placed): Usp Facility 02/17/25 1713 <Electronically signed by Heydi Amaya MD> Cosigner Signature (if applicable): CC: Dr. Nestor Bartlett, DO; Dr. Ramone Smiley MD ~ [facility] Work Phone: 1(478) 217-812606-20-2025 [facility]06-19-2025 Progress note Author Heydi Amaya [facility] Note Date/Time February 16, 2025 4:45 pm [facility] Medical Records Department [address] [place] [address] Progress Note - Hospitalist 02/16/2529 MR#: [id number] Acct: [id number] Name: OLGA DONALDSON Rep #:[id number] : 1945 80 From: Heydi Amaya MD PCP: Dr. Ramone Smiley MD Status:ADM TED Location: [place] [address]-1 Reason for Visit Reason for Visit: Diagnoses [...] 82.5 H, Lymph % (Auto) 10.9 L, Irion % (Auto) 4.8, Eos % (Auto) 0.7, [...] evidence of acute cardiopulmonary process. Reading Location: [facility] Physical Exam Narrative General: Alert, oriented, no [...] GERD, COPD, hypertension, diabetes who presented to [facility] ED 02/16/2025 with shortness of breath [...] Amaya MD Charges/Coding Visit Charges Inpatient E&M: 33504 Subs Hosp L2 02/16/25 3904 <Electronically signed by Heydi Amaya MD> Cosigner Signature (if applicable): CC: ~ Signed [facility] Work Phone: 1(433) 958-613006-18-2025 Discharge summary Author Robert Allison [facility] Note Date/Time February 15, 2025 3:14 pm [facility] Medical Records Department [address] [place] [address] Emergency Department Summary 02/15/25 MR#: [id number] Acct: [id number] Name: OLGA DONALDSON Rep #:[id number] : 1945 80 From: Robert Allison DO PCP: Dr. Ramone Smiley MD Status:ADM TED Location: [place] [address] HPI History of Present Illness Chief Complaint: [...] a cough. Denies fever or chest pain. [facility] Medical History (Updated 02/15/25 @ 13:15 by [...] mg tablet 25 mg PO BID BLOOD UT ESSURE 08/16/18 01/15/25 History pantoprazole 40 mg [...] 01/15/25 01/15/25 History 0.005 % eye drops (latan) psyllium husk 0.4 gram capsule 0.4 g [...] and faint expiratory wheezes. Mild tachypnea. No machine splitter muscles or retractions Effort and Inspection: Negative [...] chronically has this type of elevation. 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 night worker saw patient and asked that we admit [...] 82.5 H Lymph % (Auto) 10.9 L Irion % (Auto) 4.8 Eos % (Auto) 0.7 [...] evidence of acute cardiopulmonary process. Reading Location: [facility] 1 view chest x-ray obtained interpreted myself [...] Care Provider] - 3-5 Days Print Language: Citizen [place] Disposition Disposition: Acute Care Hospital [facility] What to do if you have Problems For any increased pain, shortness of breath, bleeding, nausea or vomiting, chestpain, or any unexpected problems, contact your Primary Care Provider. Call [facility] ([phone]) or report to the closest Emergency Room. Call 911 if necessary. 02/15/25 4449 <Electronically signed by Robert Allison DO> Cosigner Signature (if applicable): CC: Dr. Ramone Smiley MD ~ Signed [facility] Work Phone: 1(259) 582-338306-18-2025 History and physical note Author Nestor Bartlett [facility] Note Date/Time February 15, 2025 2:57 pm [facility] Medical Records Department [address] [place] [address] H&P Exam - Hospitalist 02/15/25 1401 MR#: [id number] Acct: [id number] Name: OLGA DONALDSON Rep #:[id number] : 1945 80 From: Nestor roman DO PCP: Dr. Ramone Smiley MD Status:ADM TED Location: [place] [id number] HPI - General General Date of Admission: 02/15/25 Date of Service: 02/15/25 Chief Complaint: Shortness of breath, acute on chronic debility HPI Narrative OLGA DONALDSON, is a 80 F who presented to [facility] ED on 02/15/2025 with shortness of [...] currently. Will be admitted for further management. [facility] Medical History (Updated 02/15/25 @ 13:[address] Robert Allison, ) History of diabetes mellitus COPD exacerbation Hypoxia [...] mg tablet 25 mg PO BID BLOOD UT ESSURE 08/16/18 01/15/25 History pantoprazole 40 mg [...] 01/15/25 01/15/25 History 0.005 % eye drops ([facility]) psyllium husk 0.4 gram capsule 0.4 g [...] 82.5 H, Lymph % (Auto) 10.9 L, Irion % (Auto) 4.8, Eos % (Auto) 0.7, [...] evidence of acute cardiopulmonary process. Reading Location: [facility] Assessment & Plan Assessment/Plan (1) Generalized weakness: PLAN: Plan Patient is an 80-year-old female who presented [facility] ED on 02/15/2025 with recurrent shortness of breath and acute on chronic debility. 1. Acute on chronic debility ? Admit under observation status to [facility]. PT/OT/case management consulted. Multiple recent [...] 75 minutes. Charges/Coding Visit Charges Inpatient E&M: 82186 Init Hosp L3 02/15/25 1457 <Electronically signed by Nestor Bartlett DO> Cosigner Signature (if applicable): CC: Dr. Nestor Bartlett DO; Dr. Ramone Smiley MD~ Signed [facility] Work Phone: 1(908) 212-501706-18-2025 Radiology Diagnostic study [facility]06-16-2025 Discharge summary Author Lucio Borden [facility] Note Date/Time February 13, 2025 2:22 pm [facility] Medical Records Department [address] [place] [address] Instructions for Home/Discharge Instructions 02/13/25 1415 MR#: [id number] Acct: [id number] Name: OLGA DONALDSON Rep #:[id number] : 1945 80 From: Lucio Borden DO [...] CC: Dr. Ramone Smiley MD ~ Signed [facility] Work Phone: 1(163) 439-569606-16-2025 [facility]06-15-2025 Progress note Author [facility] Note Date/Time February 12, 2025 11:2 5am [facility] Medical Records Department [address] [place] [address] Progress Note - Hospitalist 02/12/25 1123 MR#: [id number] Acct: [id number] Name: OLGA DONALDSON Rep #:[id number] : 1945 80 From: Lucio Borden DO PCP: Dr. Ramone Smiley MD Status:ADM [id number] Reason for Visit Reason for Visit: Diagnoses [...] 35- minutes Charges/Coding Visit Charges Inpatient E&M: 83378 Subs Hosp L2 02/12/25 1125 <Electronically signed by Lucio Borden DO> Cosigner Signature (if applicable): CC: ~ Signed [facility] Work Phone: 1(922) 502-396806-14-2025 Progress note Author [facility] Note Date/Time February 11, 2025 4:29 pm [facility] Medical Records Department [address] [place] [address] Progress Note - Hospitalist 02/11/25 1621 MR#: [id number] Acct: [id number] Name: OLGA DONALDSON Rep #:[id number] : 1945 80 From: Lucio Borden DO PCP: Dr. Ramone Smiley MD Status:ADM [id number] Reason for Visit Reason for Visit: Diagnoses [...] 35- minutes Charges/Coding Visit Charges Inpatient E&M: 84026 Subs Hosp L2 02/11/25 1629 <Electronically signed by Lucio Borden DO> Cosigner Signature (if applicable): CC: ~ Signed [facility] Work Phone: 1(889) 484-561906-13-2025 Progress note Author [facility] Note Date/Time February 10, 2025 5:29 pm [facility] Medical Records Department [address] [place] [address] Progress Note - Hospitalist 02/10/25 1720 MR#: [id number] Acct: [id number] Name: OLGA DONALDSON Rep #:[id number] : 1945 80 From: Lucio Borden DO PCP: Dr. Ramone Smiley MD Status:ADM IN Location: [place] [address]893-1 Reason for Visit Reason for Visit: Diagnoses [...] 35- minutes Charges/Coding Visit Charges Inpatient E&M: 71227 Subs Hosp L2 02/10/25 1729 <Electronically signed by Lucio Borden DO> Cosigner Signature (if applicable): CC: ~ Signed [facility] Work Phone: 1(502) 795-388706-12-2025 History and physical note Author Tono Gomez [facility] Note Date/Time February 09, 2025 7:17 pm [facility] Medical Records Department [address] [place] [address] H&P Exam - Hospitalist 02/09/25 1525 MR#: [id number] Acct: [id number] Name: OLGA DONALDSON Rep #:[id number] : 1945 80 From: Tono BHATTI PCP: Dr. Ramone Smiley MD Status:ADM IN Location: [facility] PI174-7 HPI - General General Date of Service: [...] tightness, no dizziness or lightheadedness, no palpitations. [facility] Medical History COPD with exacerbation Anemia History [...] mg tablet 25 mg PO BID BLOOD UT ESSURE 08/16/18 01/15/25 History pantoprazole 40 mg [...] (Auto) 86.9 H, Lymph % (Auto) 7.3L, Irion % (Auto) 4.5, Eos % (Auto) 0.1, [...] degree of bibasilar linear atelectasis. Reading Location: [facility] Assessment & Plan Assessment/Plan (1) COPD exacerbation: [...] assessment and findings. Visit Charges Inpatient E&M: 34192 Init Hosp L2 02/09/251916<Electronically signed by Lucio Borden DO> Cosigner Signature (if applicable): cc: DAVY Dykes; Dr. Ramone Smiley MD; Dr. Lucio Borden DO ~* Signed [facility] Work Phone: 1(803) 288-776106-12-2025 Discharge summary Author Jeremiah Corrales [facility] Note Date/Time February 09, 2025 2:57 pm [facility] Medical Records Department [address] [place] [address] Emergency Department Summary 02/09/25 MR#: [id number] Acct: [id number] Name: OLGA DONALDSON Rep #:[id number] : 1945 80 From: Jeremiah Corrales MD [...] Prior similar symptoms: Yes Recent Illness/Hospitalization: Yes [facility] Medical History COPD with exacerbation Anemia History [...] mg tablet 25 mg PO BID BLOOD UT ESSURE 08/16/18 01/15/25 History pantoprazole 40 mg [...] 86.9 H Lymph % (Auto) 7.3 L Irion % (Auto) 4.5 Eos % (Auto) 0.1 [...] degree of bibasilar linear atelectasis. Reading Location: [facility] Chest x-ray, 2 views, interpreted by [...] rhythm rate of 93 no acute signs NV or ischemia. Patient does have inverted T waves in V4 5 and 6 slight change from prior EKG from February 04. Prior EKG tracings: available for review Prior: Changed Discharge Plan Dx/Rx/DC Orders Clinical Impression: Acute dyspnea, Elevated troponin, Hypoxia, COPD exacerbation, History of diabetes mellitus Disposition Disposition: Acute Care Hospital [facility] What to do if you have Problems For any increased pain, shortness of breath, bleeding, nausea or vomiting, chestpain, or any unexpected problems, contact your Primary Care Provider. Call [facility] ([phone]) or report to the closest Emergency Room. Call 911 if necessary. 02/09/25 3717 <Electronically signed by Jeremiah Corrales MD> Cosigner Signature (if applicable): CC: Dr. Ramone Smiley MD ~ Signed [facility] Work Phone: 1(695) 355-783506-12-2025 Radiology Diagnostic study [facility]06-09-2025 Discharge summary Author Lucio Borden [facility] Note Date/Time February 06, 2025 2:01p m [facility] Medical Records Department [address] [place] [address] Instructions for Home/Discharge Instructions 02/06/25 1351 MR#: [id number] Acct: [id number] Name: OLGA DONALDSON Rep #:[id number] : 1945 80 From: Lucio Borden DO [...] CC: Dr. Ramone Smiley MD ~ Signed [facility] Work Phone: 1(289) 870-201806-09-2025 [facility]06-08-2025 Progress note [facility] Note Date/Time February 05, 2025 2:48p m [facility] Medical Records Department [address] [place] [address] Progress Note - Hospitalist 02/05/25 1442 MR#: [id number] Acct: [id number] Name: OLGA DONALDSON Rep #:[id number] : 1945 80 From: Lucio Borden DO PCP: Dr. Ramone Smiley, MD Status:ADM IN [facility] Subjective Subjective Patient was seen and examined today, she states she feels much better today. Patient is currently on room air. Objective Data Objective Data Vital Signs: Vital Signs Temp Pulse Resp BP Pulse Ox O2 Del Method O2 Flow Rate 97.3 F L 88 14 121/56 H 100 Room Air 3 02/05/25 10:09 02/05/25 10:16 02/05/25 10:09 02/05/25 10:02/05/25 10:02/05/25 10:02/05/25 07:33 Oxygen Flow Rate (L/min) 3 Oxygen [...] not believe the patient has had an NV #4 type 2 diabetes-blood sugars will be [...] 35 minutes Charges/Coding Visit Charges Inpatient E&M: 15349 Subs Hosp L2 02/05/25 1448 <Electronically signed by Lucio Borden DO> Cosigner Signature (if applicable): CC: ~ Signed [facility] Work Phone: 1([phone]) 313-891206-07-2025 Discharge summary Author Aj Holley [facility] Note Date/Time February 04, 2025 10:27 am [facility] Medical Records Department [address] [place] [address] Emergency Department Summary 02/04/25 MR#: [id number] Acct: [id number] Name: OLGA DONALDSON Rep #:[id number] : 1945 80 From: Aj Holley MD [...] of the couch, and has no pain. [facility] Medical History Elevated troponin Coronary artery disease [...] mg tablet 25 mg PO BID BLOOD [facility] ESSURE 08/16/18 01/15/25 History pantoprazole 40 mg [...] 75.4 H Lymph % (Auto) 15.7 L Irion % (Auto) 6.6 Eos % (Auto) 1.7 [...] MD [Primary Care Provider] - Print Language: Citizen [place] What to do if you have Problems For any increased pain, shortness of breath, bleeding, nausea or vomiting, chestpain, or any unexpected problems, contact your Primary Care Provider. Call [facility] ([phone]) or report to the closest Emergency Room. Call 911 if necessary. 02/04/25718 <Electronically signed by Aj Holley MD> Cosigner [...] 11.8 and 37.9. White count slightly elevated [place] 0.2 thousand. There is slight shift with [...] be due to right heart strain. 02/04/25 08<Electronically signed by Kwaku Marcial MD> Cosigner Signature [...] cc: Dr. Ramone Smiley MD ~* Signed [facility] Work Phone: 1(381) 482-199606-07-2025 Radiology Diagnostic study [facility]06-07-2025 Radiology Diagnostic study [facility]05-29-2025 Radiology Diagnostic study [facility] 01-24-2025 [facility]05-26-2025 Progress note Author Becca Silverman [facility] Note Date/Time January 23, 2025 3:40p m [facility] Medical Records Department [address] [place] [address] Progress Note - Cardiology 01/23/25 1528 MR#: [id number] Acct: [id number] Name: OLGA DONALDSON Rep #:[id number] : 1945 80 From: Becca Silverman MD PCP: Dr. Ramone Smiley MD Status:ADM IN Location: [place] [address] Subjective Subjective Seen and evaluated at bedside [...] (Auto) 90.8 H, Lymph % (Auto) 6.2L, Irion % (Auto) 2.7, Eos % (Auto) 0.0, [...] (Auto)90.8 H, Lymph % (Auto) 6.2 L, Irion % (Auto) 2.7, Eos % (Auto) 0.0, [...] up an appointment to be seen by hay stacker operator as an outpatient and discussed further plan possible Lexiscan sestamibi and based on results of Lexiscan sestamibi to consider further evaluation. To minimize risk of contrast-induced nephropathy. Becca Silverman MD,[facility] 01/23/25 1540 <Electronically signed by Becca Silverman MD> Cosigner Signature (if applicable): CC: ~ Signed [facility] Work Phone: 1(577) 245-904605-26-2025 Progress note Author [facility] Note Date/Time January 23, 2025 2:43p m [facility] Medical Records Department [address] [place] [address] Progress Note 01/23/25 1037 MR#: [id number] Acct: [id number] Name: OLGA DONALDSON Rep #:[id number] : 1945 80 From: Melba Hartmann MD PCP: Dr. Ramone Smiley MD Status:ADM IN Location: [place] [address] Subjective Subjective Patient seen and examined. She [...] (Auto) 90.8 H, Lymph % (Auto) 6.2L, Irion % (Auto) 2.7, Eos % (Auto) 0.0, [...] prophylaxis: Heparin Charges/Coding Visit Charges Inpatient E&M: 22802 Subs Hosp L2 01/23/25 0773 <Electronically signed by Melba Hartmann MD> Melba Hartmann MD Cosigner Signature (if applicable): CC: ~ Signed [facility] Work Phone: 1(630) 105-128105-25-2025 Progress note Author [facility] Note Date/Time January 22, 2025 2:00p m [facility] Medical Records Department [address] [place] [address] Progress Note 01/22/25 0949 MR#: [id number] Acct: [id number] Name: OLGA DONALDSON Rep #:[id number] : 1945 80 From: Melba Hartmann MD PCP: Dr. Ramone Smiley MD Status:ADM IN Location: [place] [address] Subjective Subjective Patient seen and examined this [...] 91.4 H, Lymph % (Auto) 5.7 L, Irion % (Auto) 2.4, Eos % (Auto) 0.0, [...] to PCU Charges/Coding Visit Charges Inpatient E&M: 67781 Subs Hosp L2 01/22/25 1242 <Electronically signed by Melba Hartmann MD> Melba Hartmann MD Cosigner Signature (if applicable): CC: ~ Signed ADDENDUM by Dr. Melba Hartmann MD on 01/22/25 at 1400 Addendum 1:30pm Patient's son Ursula Lees Jr called on the phone ([phone]) and updated about his mother's condition. 01/22/25 1400 <Electronically signed by Melba vivas MD> Date _ Melba Hartmann MD Cosigner Signature (if applicable): Date cc: ~* Signed [facility] Work Phone: 1(244) 340-535505-24-2025 Progress note Author Melba Hartmann [facility] Note Date/Time January 21, 2025 2:07p [facility] Medical Records Department [address] [place] [address] Progress Note 01/21/25 1039 MR#: [id number] Acct: [id number] Name: OLGA DONALDSON Rep #:[id number] : 1945 80 From: Melba Hartmann MD [...] Std Deviation 51.8 H, RDW Coeff of Vjiay 16.0 H, Plt Count 245, MPV 11.0, Immature Gran % (Auto) 0.400, Neut % (Auto) 88.4 H, Lymph % (Auto) 7.7 L, Irion % (Auto) 3.5, Eos % (Auto) 0.0, [...] H, Cal[place] 9.8, [place] [address] H 01/21/25 08:06: POC Glucose 202 H [...] noted. Cardiomegaly. No pericardial effusion. Reading Location: [id number] Echocardiogram 01/20/25 04:12 Interpretation Summary Mildly dilated left ventricle. The estimated ejection fraction is 35-40 %. There is evidence of diastolic dysfunction. There is moderate global hypokinesis of the left ventricle. Trivial mitral valve insufficiency. Mild aortic stenosis. Trivial aortic valve insufficiency. Ordering Physician: Sandeep Carlton Referring Physician: Ramone Smiley Performed By: Margot Cleary, TESSIECS, RVT Chest X-Ray 01/21/25 05:55 IMPRESSION: New appearing jovg-lw-cpihajsu ill-defined perihilar opacity at the left upper lobe may represent developing infiltrate or less likely an asymmetric edema pattern. Bilateral medial retrocardiac lower lobe streaky opacities not significantly changed. No pleural effusions identified. Reading Location: [facility] Physical Exam Const alert, oriented x3, [...] prophylaxis: Heparin Charges/Coding Visit Charges Inpatient E&M: 36479 Subs Hosp L2 01/21/25 1400 <Electronically signed by Melba Hartmann MD> Melba Hartmann MD Cosigner Signature (if applicable): CC: ~ Signed [facility] Work Phone: 1(232) 696-140305-24-2025 Radiology Diagnostic study [facility]05-23-2025 Progress note Author Lucio Borden [facility] Note Date/Time January 20, 2025 4:58p m [facility] Medical Records Department [address] [place] [address] Progress Note - Hospitalist 01/20/25 1657 MR#: [id number] Acct: [id number] Name: OLGA DONALDSON Rep #:[id number] : 1945 80 From: Lucio Borden DO PCP: Dr. Ramone Smiley MD Status:ADM IN Location: [place] [address] Hospitalist Note Patient continues to have respiratory distress on PCU, she is intolerant of BiPAP-she acts very anxious. I have ordered an arterial blood gas on the patient and for closer monitoring I have decided to move her to the ICU at this time. Patient is a full code and would want intubated if necessary. 01/20/25 1658 <Electronically signed by Lucio Borden DO> Cosigner Signature (if applicable): CC: ~ Signed [facility] Work Phone: 1([phone]) 663-969205-23-2025 Progress note Author [facility] Note Date/Time January 20, 2025 11:20 am [facility] Medical Records Department [address] [place] [address] Progress Note - Hospitalist 01/20/25 1119 MR#: [id number] Acct: [id number] Name: OLGA DONALDSON Rep #:[id number] : 1945 80 From: Lucio Borden DO PCP: Dr. Ramone Smiley MD Status:ADM IN Location: [place] [address] Hospitalist Note Patient was seen and examined today, made the decision to change the patient to Airvo, patient was admitted for suspected right lower lobe pneumonia and exacerbation of COPD, she remained on aerosol treatments, IV Solu-Medrol, and IVlevofloxacin. 01/20/25 1120 <Electronically signed by Lucio Borden DO> Cosigner Signature (if applicable): CC: ~ Signed [facility] Work Phone: 1([phone]) [phone] History and physical note Author Sandeep Marie [facility] Note Date/Time January 20, 2025 6:06a m [facility] Medical Records Department [address] [place] [address] H&P Exam - Hospitalist 01/20/25 0241 MR#: [id number] Acct: [id number] Name: OLGA DONALDSON Rep #:[id number] : 1945 80 From: Sandeep Dukes DO PCP: Dr. Ramone Smiley MD Status:ADM IN Location: [place] [address] HPI - General General Date of Admission: [...] stenosis of lumbar region who presents to [facility] ER complaining of shortness of breath. [...] is expected to extend beyond 2 midnights. [facility] Medical History Fracture of hip, left, closed [...] mg tablet 25 mg PO BID BLOOD UT ESSURE 08/16/18 01/15/25 History pantoprazole 40 mg [...] Neut % (Auto) 58.4, Lymph % (Auto) 32.0,Irion % (Auto) 7.7, Eos % (Auto) 0.8, [...] Clarity Clear, Urine pH 6.0, Ur Specific [place] 1.010, Urine Protein 100 H, Urine Glucose [...] noted. Cardiomegaly. No pericardial effusion. Reading Location: [id number] Assessment & Plan Assessment/Plan (1) Pneumonia: QUALIFIERS: [...] twice daily. Give acetaminophen as needed for mwit-bf-ttzedrhq (level 1-5/10) pain or fever. Give morphine [...] responsive hypotension Charges/Coding Visit Charges Inpatient E&M: 69548 Init Hosp L3 01/20/25 0606 <Electronically signed by Sandeep Carlton DO> Cosigner Signature (if applicable): CC: Dr. Sandeep Carlton DO; Dr. Ramone Smiley MD~ Signed [facility] Work Phone: 1([phone]) 441-406605-23-2025 Evaluation note* Diagnosis Onset Date Resolution Status Admit Date Acute hypoxemic respiratory failure acute January 20, 2025 3 :32am Acute hypoxic on chronic hypercapnic respiratory failure acute January 20, 2025 3:32am Elevated troponin acute December 3:32am Lactic acidosis acute January 20, 2025 3:32am Leukocytosis acute January 20 3:32am Obesity (BMI 30.0-34.9) acute M ay 2024 3:32am Pneumonia acute January 20, 2025 3:32am Aortic stenosis chronic January 20, 2025 3:32am CHF exacerbation chronic December 3:32am COPD exacerbation chronic December 3:32am Coronary artery disease chronic M ay 2024 3:32am Hypertension chronic January 20 3:32am [facility] Work Phone: [phone]) 277-939605-23-2025 Evaluation note* Diagnosis Onset Date Resolution Status [...] diabetes mellitus chronic February 04, 2025 10:52am [facility] Work Phone: 1([phone]) [phone] Evaluation note* Diagnosis Onset Date Resolution Status [...] diabetes mellitus chronic February 04, 2025 10:52am [facility] Work Phone: 1([phone]) 289-758505-23-2025 Evaluation note* Diagnosis Onset Date Resolution Status [...] 20, 2025 3:32am Obesity (BMI 30.0-34.9) inactive ay 2024 3:32am Aortic stenosis acute January 31, 2025 1:42pm Coronary artery disease acute J 2024 1:42pm CHF (congestive heart failure) inact [...] failure remov ed February 09, 2025 3:00pm [facility] Work Phone: [phone] Evaluation note* Diagnosis Onset Date Resolution Status [...] 2025 1:42pm Hypertension chronic January 31 1:42pm [facility] Work Phone: [phone]) [phone] Evaluation note* Diagnosis Onset Date Resolution Status [...] failure remov ed February 09, 2025 3:00pm [facility] Work Phone: [phone]) [phone] Evaluation note* Diagnosis Onset Date Resolution Status [...] 31, 2025 1:42pm Coronary artery disease inactive 2024 1:42pm Hyperlipidemia inactive January 31, 2025 [...] Generalized weakness inactive February 15, 2025 2:01pm [facility] Work Phone: [phone] 459-836505-23-2025 Discharge summary Author Jeevan Yoder [facility] Note Date/Time January 20, 2025 2:43a m [facility] Medical Records Department [address] [place] [address] Emergency Department Summary 01/20/25 MR#: [id number] Acct: [id number] Name: OLGA DONALDSON Rep #:[id number] : 1945 80 From: Jeevan Yoder DO [...] has had progressive worsening [facility]ness of breath. [facility] Medical History Fracture of hip, left, closed [...] mg tablet 25 mg PO BID BLOOD UT ESSURE 08/16/18 01/15/25 History pantoprazole 40 mg [...] % (Auto) 58.4 Lymph % (Auto) 32.0 Irion % (Auto) 7.7 Eos % (Auto) 0.8 [...] Clarity Clear Urine pH 6.0 Ur Specific [place] 1.010 Urine Protein 100 H Urine Glucose [...] noted. Cardiomegaly. No pericardial effusion. Reading Location: [id number] Discharge Plan Triage Chief Complaint: Shortness of [...] MD [Primary Care Provider] - Print Language: Citizen [place] What to do if you have Problems For any increased pain, shortness of breath, bleeding, nausea or vomiting, chestpain, or any unexpected problems, contact your Primary Care Provider. Call [facility] ([phone]) or report to the closest Emergency Room. Call 911 if necessary. 01/20/25 0236 <Electronically signed by Jeevan Yoder DO> Cosigner Signature (if applicable): CC: Dr. Ramone Smiley MD ~ Signed [facility] Work Phone: 1([phone]) [phone] Radiology Diagnostic study [facility]05-18-2025 Discharge summary [facility] Medical Records Department [address] [place] [address] Emergency Department Summary 01/15/25 MR#: [id number] Acct: [id number] Name: ANIKAOLGA BARILLAS Rep #:[id number] : 1945 80 From: Jeevan Yoder DO [...] of the antibiotic that was placed on. [facility] Medical History Fracture of hip, left, closed [...] mg tablet 25 mg PO BID BLOOD UT ESSURE 08/16/18 01/15/25 History pantoprazole 40 mg [...] follow commands and that she was at [facility] the year is 2024 Skin: Warm, dry, [...] 72.7 H Lymph % (Auto) 18.1 L [place] % (Auto) 6.9 Eos % (Auto) 1.6 [...] IMPRESSION: Cardiomegaly with mild congestion. Reading Location: [facility] Discharge Plan Triage Chief Complaint: Shortness of [...] with worsening symptoms or concerns. Print Language: Citizen [place] Disposition Disposition: Home, Self Care What to do if you have Problems For any increased pain, shortness of breath, bleeding, nausea or vomiting, chestpain, or any unexpected problems, contact your Primary Care Provider. Call [facility] ([phone]) or report tothe closest Emergency Room. Call 911 if necessary. 01/15/25 1845 Cosigner Signature (if applicable): CC: Dr. Ramone Smiley MD ~ Signed [facility]05-18-2025 Radiology Diagnostic study note [facility] Imaging Services [address] [place] [address] Chest PA and Lateral MR#: [id number] Acct: [id number] Name: OLGA DONALDSON Rep #: [id number] : 1945 F 80 From: Kary Darnell MD PCP: Dr. Ramone Smiley MD Status: [facility] ER Study:Chest PA and Lateral Date of Exam: 01/15/25 Exam# [id number] Ordering Dr: Yoly Yoder DO EXAM: XR Chest, 2 Views CLINICAL INDICATION: CHEST PAIN TECHNIQUE: Frontal and lateral views of the chest. COMPARISON: No relevant prior studies available. FINDINGS: LUNGS AND PLEURAL SPACES: See below. HEART: Cardiomegaly with mild congestion. MEDIASTINUM: Unremarkable. Normal mediastinal contour. BONES/JOINTS: Unremarkable. No acute fracture. RAD/Chest PA and Lateral IMPRESSION: Cardiomegaly with mild congestion. Reading Location: [facility] CC: Dr. Ramone Smiley MD; Dr. Jeevan Yoder DO ~ Piano Builder: Signed [facility]05-18-2025 Discharge summary Author Jeevan Yoder [facility] Note Date/Time January 15, 2025 6:45p m [facility] Medical Records Department [address] [place] [address] Emergency Department Summary 01/15/25 MR#: [id number] Acct: [id number] Name: OLGA DONALDSON Rep #:[id number] : 1945 80 From: Jeevan Yoder DO [...] of the antibiotic that was placed on. [facility] Medical History Fracture of hip, left, closed [...] mg tablet 25 mg PO BID BLOOD UT ESSURE 08/16/18 01/15/25 History pantoprazole 40 mg [...] follow commands and that she was at [facility] the year is 2024 Skin: Warm, dry, [...] 72.7 H Lymph % (Auto) 18.1 L [place] % (Auto) 6.9 Eos % (Auto) 1.6 [...] IMPRESSION: Cardiomegaly with mild congestion. Reading Location: [facility] Discharge Plan Triage Chief Complaint: Shortness [...] with worsening symptoms or concerns. Print Language: Citizen [place] Disposition Disposition: Home, Self Care What to do if you have Problems For any increased pain, shortness of breath, bleeding, nausea or vomiting, chestpain, or any unexpected problems, contact your Primary Care Provider. Call [facility] ([phone]) or report to the closest Emergency Room. Call 911 if necessary. 01/15/251844 <Electronically signed by Jeevan Yoder DO> Cosigner Signature (if applicable): CC: Dr. Ramone Smiley MD ~ Signed [facility] Work Phone: 1(448) [phone] Discharge summary [facility] Medical Records Department [address] [place] [address] Emergency Department Summary 01/07/25 MR#: [id number] Acct: [id number] Name: OLGA DONALDSON Rep #:[id number] : 1945 80 From: Ethan Casanova PCP: [...] is a diabetic. Prior similar symptoms: Yes [facility] Medical History Fracture of hip, left, closed [...] mg tablet 25 mg PO BID BLOOD UT ESSURE 08/16/18 08/12/23 History pantoprazole 40 mg [...] with a pulse ox for disposition plan. 165: Viral swabs negative. Patient ambulated 94% on [...] clinician: N/A This note was generated with Unicotrip dictation software. It may contain incorrectwords, spelling, [...] % (Auto) 58.0 Lymph % (Auto) 31.8 Irion % (Auto) 7.6 Eos % (Auto) 1.9 [...] IMPRESSION: Cardiomegaly without overt failure. Reading Location: [facility] Discharge Plan Triage Chief Complaint: Shortness of [...] steroids is tomorrow. This was sent to [employer]. Print Language: Citizen [place] Disposition Disposition: Home, Self Care What to do if you have Problems For any increased pain, shortness of breath, bleeding, nausea or vomiting, chestpain, or any unexpected problems, contact your Primary Care Provider. Call [facility] ([phone]) or report tothe closest Emergency Room. Call 911 if necessary. 01/07/25 1700 Cosigner Signature (if applicable): CC: Dr. Ramone Smiley MD ~ Signed [facility]05-10-2025 Radiology Diagnostic study note [facility] Imaging Services [address] [place] [address] Chest PA and Lateral MR#: [id number] Acct: [id number] Name: OLGA DONALDSON Rep #: [id number] : 1945 F 80 From: Kary Darnell MD PCP: Dr. Ramone Smiley MD Status: PRE ER Study:Chest PA and Lateral Date of Exam: 01/07/25 Exam# [id number] Ordering Dr: Ethan Darnell DO EXAM: XR Chest, 2 Views CLINICAL INDICATION: COUGH TECHNIQUE: Frontal and lateral views of the chest. COMPARISON: No relevant prior studies available. FINDINGS: LUNGS AND PLEURAL SPACES: Unremarkable. No consolidation. No pneumothorax. HEART: Cardiomegaly without overt failure. MEDIASTINUM: Unremarkable. Normal mediastinal contour. BONES/JOINTS: Unremarkable. No acute fracture. RAD/Chest PA and Lateral IMPRESSION: Cardiomegaly without overt failure. Reading Location: [facility] CC: Dr. Ramone Smiley MD; Dr. Ethan Darnell DO ~ Piano Builder: Signed [facility]05-10-2025 Discharge summary Author Ethan Darnell [facility] Note Date/Time January 07, 2025 5:00p m [facility] Medical Records Department [address] [place] [address] Emergency Department Summary 01/07/25 MR#: [id number] Acct: [id number] Name: OLGA DONALDSON Rep #:[id number] : 1945 80 From: Ethan Casanova PCP: [...] mg tablet 25 mg PO BID BLOOD UT ESSURE 08/16/18 08/12/23 History pantoprazole 40 mg [...] clinician: N/A This note was generated with Unic[employer] dictation software. It may contain incorrectwords, spelling, [...] % (Auto) 58.0 Lymph % (Auto) 31.8 Irion % (Auto) 7.6 Eos % (Auto) 1.9 [...] IMPRESSION: Cardiomegaly without overt failure. Reading Location: [facility] Discharge Plan Triage Chief Complaint: Shortness of [...] steroids is tomorrow. This was sent to [employer]. Print Language: Citizen [place] Disposition Disposition: Home, Self Care What to do if you have Problems For any increased pain, shortness of breath, bleeding, nausea or vomiting, chestpain, or any unexpected problems, contact your Primary Care Provider. Call [facility] ([phone]) or report to the closest Emergency Room. Call 911 if necessary. 01/07/25 1700 <Electronically signed by Ethan Casanova> Cosigner Signature (if applicable): CC: Dr. Ramone Smiley MD ~ Signed [facility] Work Phone: 1(592) 630-480505-01-2024 Progress note Author Sunny Bell [facility] December 30, 2023 12:34pm Note Date/Time December 30, 2023 12:35p [facility] Medical Records Department [address] [place] [address] Progress Note - Hospitalist 12/30/23 1228 MR#: [id number] Acct: [id number] Name: OLGA DONALDSON Rep #:[id number] : 1945 78 From: Sunny Blue PCP: Dr. Ramone Smiley MD Status:ADM IN Location: [place] [address] Reason for Visit Reason for Visit: Diagnoses [...] 124/50 H 97 Room Air 2 12/30/23 10:12/30/23 10:12/30/23 10:12/30/23 10:12/30/23 10:12/30/23 10:02 12/29/23 07:09 Oxygen Flow Rate (L/min) 2 Oxygen Delivery Method Room Air Weight: 157 lb 6.561 oz Body Mass Index (BMI) 27.8 Intake & Output: Intake and Output for Last 24 Hours 12/28/23 12/29/23 12/30/23 23:59 23:59 23:59 Intake Total 1732.50 / 1732.50 75 / 700 / 700 Output Total 1850 / [...] % (Auto) 63.9, Lymph % (Auto) 25.3, Irion % (Auto) 8.7, Eos % (Auto) 1.4, [...] Patient is a 78-year-old female who presented [facility] ED on 12/27/2023 with left hip pain after a fall at home. She got up from the couch toself catheter, got her walker turned and then lost balance and fell on her left hip. 1. Acute debility due to left impacted transcervical femoral neck fracture. ? Admit under inpatient status to [facility]. Orthopedics consulted. N.p.o. at midnight. [...] cousin over the phone who lives in [facility]. Patient is clinically doing well. Currently [...] disposition: TBD Charges/Coding Visit Charges Inpatient E&M: 76761 Subs Hosp L2 12/30/23 1234 <Electronically signed by Sunny Bell MD> Cosigner Signature (if applicable): CC: ~ Signed [facility] Work Phone: 1(349) 111-992304-30-2024 Progress note Author Sunny Bell [facility] December 29, 2023 12:47pm Note Date/Time December 29, 2023 9:3 0am [facility] Medical Records Department [address] [place] [address] [place] [address] Progress Note - Hospitalist 12/29/23 0929 MR#: [id number] Acct: [id number] Name: OLGA DONALDSON Rep #:[id number] : 1945 78 From: Sunny Blue PCP: Dr. Ramone Smiley MD Status:ADM IN Location: [facility] DT174-2 Reason for Visit Reason for Visit: Diagnoses [...] (Auto) 81.1 H, Lymph %(Auto) 9.5 L, Irion % (Auto) 8.5, Eos % (Auto) 0.1, [...] Patient is a 78-year-old female who presented [facility] ED on 12/27/2023 with left hip pain after a fall at home. She got up from the couch toself catheter, got her walker turned and then lost balance and fell on her left hip. 1. Acute debility due to left impacted transcervical femoral neck fracture. ? Admit under inpatient status to [facility]. Orthopedics consulted. N.p.o. at midnight. [...] cousin over the phone who lives in [facility]. Patient is clinically doing well. Currently [...] disposition: TBD Charges/Coding Visit Charges Inpatient E&M: 94116 Subs Hosp L2 12/29/23 1247 <Electronically signed by Sunny Bell MD> Cosigner Signature (if applicable): CC: ~ Signed [facility] Work Phone: 1(675) 482-627504-30-2024 Progress note Author Sj Delacruz [facility] December 29, 2023 11:56am Note Date/Time December 29, 2023 11: 56am [facility] Medical Records Department [address] [place] [address] Progress Note - Orthopedic 12/29/23 1152 MR#: [id number] Acct: [id number] Name: OLGA DONALDSON Rep #:[id number] : 1945 78 From: Sj BHATTI PA-C PCP: Dr. Ramone Smiley MD Status:ADM IN Location: [place] [address]1 Subjective Subjective Patient sitting at bedside watching [...] (Auto) 81.1 H, Lymph %(Auto) 9.5 L, Irion % (Auto) 8.5, Eos % (Auto) 0.1, [...] Cosigner Signature (if applicable): CC: ~ Signed [facility] Work Phone: 1(536) 301-744004-29-2024 Consult note Author Gabriel Byrd [facility] December 28, 2023 12:59pm Note Date/Time December 28, 2023 12: 59pm [facility] Medical Records Department [address] [place] [address] Consultation - Orthopedics 12/28/23 1252 MR#: [id number] Acct: [id number] Name: OLGA DONALDSON Rep #:[id number] : 1945 78 From: Gabriel Blue PCP: Dr. Ramone Smiley MD Status:ADM [facility] Consult Data Date of Consult: 12/28/23 [...] She denies any previous DVTs or PEs. [facility] Medical History Anemia Anxiety Aortic stenosis Asthma [...] tablet 81 mg PO DAILY [facility] 01/21/16 [History Last Taken 08/12/23] [...] % (Auto) 51.7, Lymph % (Auto) 37.1, Irion % (Auto) 6.6, Eos % (Auto) 3.1, [...] 23:29 EDT Reading Location ID and State: [employer] Tel , Service support , Hip/Pelvis X-Ray 12/27/23 23:05 IMPRESSION: Acute impacted fracture of the transcervical femoral neck. Electronically Signed: Weston Patel MD at 23:30 EDT Reading Location ID and State: [employer] , Service support , Assessment & [...] rehab. Patient's projected recovery will likely require mcc or intensive inpatient rehabilitation prior to discharge back home. (2) Falls: (3) Weakness: (4) Microcytic anemia: (5) Chronic renal failure, stage 3 (moderate): QUALIFIERS: Chronic kidney disease stage 3 subtype: unspecified whether 3a or 3b Qualified Code(s): N18.30 - Chronic kidney disease, stage 3 unspecified 12/28/23 1259 <Electronically signed by Gabriel Byrd MD> Cosigner Signature (if applicable): CC: Dr. Ramone Smiley MD~ Signed [facility] Work Phone: 1(107) 828-970704-29-2024 Procedure [facility] 12-28-2023 Progress note Author Sunny Bell [facility] December 28, 2023 11:23am Note Date/Time December 28, 2023 9:5 2am [facility] Medical Records Department [address] [place] [address] Progress Note - Hospitalist 12/28/23 0949 MR#: [id number] Acct: [id number] Name: OLGA DONALDSON Rep #:[id number] : 1945 78 From: Sunny Blue PCP: Dr. Ramone Smiley MD Status:ADM IN Location: [place] [address]1 Reason for Visit Reason for Visit: Diagnoses [...] % (Auto) 51.7, Lymph % (Auto) 37.1, Irion % (Auto) 6.6, Eos % (Auto) 3.1, [...] 23:29 EDT Reading Location ID and State: [id number] / [employer] Tel , Service support , Hip/Pelvis X-Ray 12/27/23 23:05 IMPRESSION: Acute impacted fracture of the transcervical femoral neck. Electronically Signed: Weston Patel MD at 23:30 EDT Reading Location ID and State: [id number] / [employer] Tel , Service support , Physical Exam [...] Patient is a 78-year-old female who presented [facility] ED on 12/27/2023 with left hip pain after a fall at home. She got up from the couch toself catheter, got her walker turned and then lost balance and fell on her left hip. 1. Acute debility due to left impacted transcervical femoral neck fracture. ? Admit under inpatient status to [facility]. Orthopedics consulted. N.p.o. at midnight. [...] Hemoglobin 12.4 on admit, recent baseline around -11. Suspect somewhat hemoconcentrated as noted above. 12/27: [...] disposition: TBD Charges/Coding Visit Charges Inpatient E&M: 83747 Subs Hosp L2 12/28/23 1123 <Electronically signed by Sunny Bell MD> Cosigner Signature (if applicable): CC: ~ Signed [facility] Work Phone: 1(715) 787-165004-29-2024 History and physical note Author Nestor Bartlett [facility] December 28, 2023 4:47am Note Date/Time December 27, 2023 11: 30pm [facility] Medical Records Department [address] [facility] [place] [address] H&P Exam - Hospitalist 12/27/23 2330 MR#: [id number] Acct: [id number] Name: OLGA DONALDSON Rep #:[id number] : 1945 78 From: Nestor roman DO PCP: Dr. Ramone Smiley MD Status:ADM IN [facility] H[facility] - General General Date of Admission: 12/27/23 Date of Service: 12/27/23 Chief Complaint: Left hip fracture HPI Narrative OLGA DONALDSON, is a 78 F who presented to [facility] ED on 12/27/2023 with left hip [...] Patient will be admitted for further management. [facility] Medical History Anemia Anxiety Aortic stenosis Asthma [...] % (Auto) 51.7, Lymph % (Auto) 37.1, Irion % (Auto) 6.6, Eos % (Auto) 3.1, [...] Patient is a 78-year-old female who presented [facility] ED on 12/27/2023 with left hip pain after a fall at home. 1. Left femoral neck fracture ? Admit under inpatient status to [facility]. Orthopedics consulted. N.p.o. at midnight. [...] 75 minutes. Charges/Coding Visit Charges Inpatient E&M: 81070 Init Hosp L3 12/28/23 5750 <Electronically signed by Nestor Bartlett DO> Cosigner Signature (if applicable): CC: Dr. Nestor Bartlett DO; Dr. Ramone Smiley MD~ Signed [facility] Work Phone: 1(408) 772-257304-29-2024 Discharge summary Author Queta Cortez [facility] December 28, 2023 2:33am Note Date/Time December 27, 2023 10: 23pm [facility] Medical Records Department [address] [place] [address] Emergency Department Summary 12/27/23 MR#: [id number] Acct: [id number] Name: OLGA DONALDSON Rep #:[id number] : 1945 78 From: Queta Cortez MD PCP: Dr. Ramone Smiley MD Status:ADM IN Location: [facility] HS792-5 HPI HPI - Fall History of Present [...] aspirin but no other form of anticoagulant. [facility] Medical History Anemia Anxiety Aortic stenosis Asthma [...] mg chewable tablet 81 mg PO DAILY [facility] 01/21/16 [History Last Taken 08/12/23] albuterol [...] Medical decision making narrative: Patient placed on library monitor. Patient given morphine and Zofran for [...] % (Auto) 51.7 Lymph % (Auto) 37.1 Irion % (Auto) 6.6 Eos % (Auto) 3.1 [...] seen Dr. Ravi previously prior to his group home. Dr. Byrd is on-call for [facility] and I will [facility] need for [facility] repair. Discharge Plan Dx/Rx/DC Orders Clinical Impression: Fracture of hip, left, closed Disposition Disposition: Acute Care Hospital [facility] What to do if you have Problems For any increased pain, shortness of breath, bleeding, nausea or vomiting, chestpain, or any unexpected problems, contact your Primary Care Provider. Call [facility] ([phone]) or report to the closest Emergency Room. Call 911 if necessary. 12/28/23 0233 <Electronically signed by Queta Cortez MD> Cosigner Signature (if applicable): CC: Dr. Ramone Smiley MD ~ Signed [facility] Work Phone: 1(529) 764-828212-18-2023 Consult note Author Derrick Hallman [facility] August 17, 2023 11:38am Note Date/Time August 17, 2023 11:38am [facility] Medical Records Department [address] [place] [address] Counseling Note - Pharmacy 08/17/23 1137 MR#: [id number] Acct: [id number] Name: OLGA DONALDSON Rep #:[id number] : 1945 78 From: Derrick Hallman PCP: Dr. Ramone Smiley MD Status:ADM IN Y Location: [place] [id number] has performed discharge medication [...] tablet 81 mg PO DAILY [facility] 01/21/16 albuterol sulfate 90 mcg/actuation [...] signed by Derrick garg> Date _ Derrick Bachigner Signature (if applicable): Date CC: ~ Signed [facility] Work Phone: 1(839) 562-142212-18-2023 Discharge summary Author [facility] August 17, 2023 11:20am Note Date/Time August 17, 2023 11:12am [facility] Medical Records Department [address] [place] [address] Discharge Summary 08/17/23 1111 MR#: [id number] Acct: [id number] Name: OLGA DONALDSON Rep #:[id number] : 1945 78 From: Sandeep Denson MD PCP: Dr. Ramone Smiley MD Status:ADM IN [facility] Prov[facility] Date of Admission: 08/13/23 Date [...] for PT OT eval and social media intern to assist with discharge planning 4. Diabetes [...] Freq: Status: Active Protocol: Document 08/14/23 13:49 (Rec: 08/14/23 13:49 AG [id number]) Nutrition Malnutrition Evidence of Malnutrition Exists Yes [...] Right Blood Culture - Final GNR lactose hide or skin buffer 08/13/23 11:10 Blood Culture (Wb) - Anticubital [...] Anne Marie Marshall MD [Med Staff - Production Expert] - 08/25/23 10:30 am Disposition Disposition (needs filled in before D/C Order can be placed): Home, Self Care Charges/Coding Visit Charges Inpatient E&M: 50051 Disch Hosp >30min 08/17/23 1120 <Electronically signed by Sandeep Denson MD> Cosigner Signature (if applicable): CC: Dr. Sandeep Denson MD; Dr. Ramone Smiley MD~ Signed [facility] Work Phone: [phone]) 658-826012-17-2023 Progress note Author Nestor Banegasmarycarmen [facility] August 16, 2023 1:08pm Note Date/Time August 16, 2023 1:08pm [facility] Medical Records Department [address] [place] [address] Progress Note - Hospitalist 08/16/23 1300 MR#: [id number] Acct: [id number] Name: OLGA DONALDSON Rep #:[id number] : 1945 78 From: Nestor roman DO PCP: Dr. Ramone Smiley MD Status:ADM IN Location: [place] [address] Reason for Visit Reason for Visit: Diagnoses [...] Total 1630 / 2330 2200 / 2500 2075 / 2075 Balance 2019 270 / 120 -1518.33 / -1518.33 Medical Nutrition Assessment Dietitian: Malnutrition Criteria Met Start: 08/14/23 13:49 Freq: Status: Active Protocol: Document 08/14/23 13:49 AG (Rec: 08/14/23 13:49 AG [id number]) Nutrition Malnutrition Evidence of Malnutrition Exists Yes [...] Std Deviation 54.9 H, RDW Coeff of Viajy 17.9 H, Plt Count 451 H, MPV [...] Right Blood Culture - Final GNR lactose hide or skin buffer 08/13/23 11:10 Blood Culture (Wb) - Anticubital [...] is a 78-year-old female who presented to [facility] ED on 08/13/2023 with increasing generalized [...] 35 minutes. Charges/Coding Visit Charges Inpatient E&M: 51912 Subs Hosp L2 08/16/23 4147 <Electronically signed by Nestor Bartlett DO> Cosigner Signature (if applicable): CC: ~ Signed [facility] Work Phone: 1(672) 168-827812-16-2023 Progress note Author Nestor marycarmen [facility] August 15, 2023 1:28pm Note Date/Time August 15, 2023 1:24pm [facility] Medical Records Department [address] [place] [address] Progress Note - Hospitalist 08/15/23 1317 MR#: [id number] Acct: [id number] Name: OLGA DONALDSON Rep #:[id number] : 1945 78 From: Nestor roman DO PCP: Dr. Ramone Smiley MD Status:ADM IN Location: [place] [address] Reason for Visit Reason for Visit: Diagnoses [...] Intake and Output for Last 24 Hours 12/08/14/23 08/15/23 23:59 23:59 23:59 Intake Total 1810.0 / 1810.0 3650 / 3650 1520 / 1520 Output Total 550 / 550 1630 / 2330 1350 / 1350 Balance 1260.0 / 1260.0 2020 / 1320 170 / 170 Medical Nutrition Assessment Dietitian: Malnutrition Criteria Met Start: 08/14/23 13:49 Freq: Status: Active Protocol: Document 08/14/23 13:49 AG (Rec: 08/14/23 13:49 AG [id number]) Nutrition Malnutrition Evidence of Malnutrition Exists Yes [...] Right Blood Culture - Preliminary GNR lactose hide or skin buffer 08/13/23 11:00 Nasal Secretion SARS-CoV-2 & FLU [...] is a 78-year-old female who presented to [facility] ED on 08/13/2023 with increasing generalized [...] cultures preliminarily positive for gram-negative wes lactose hide or skin buffer, follow-up speciation and sensitivities. 3. LIA, resolved [...] 35 minutes. Charges/Coding Visit Charges Inpatient E&M: 86265 Subs Hosp L2 08/15/23 1328 <Electronically signed by Nestor Bartlett DO> Cosigner Signature (if applicable): CC: ~ Signed [facility] Work Phone: 1(376) 599-761012-15-2023 Progress note Author Nestor [facility] August 14, 2023 3:08pm Note Date/Time August 14, 2023 2:58pm [facility] Medical Records Department [address] [place] [address] Progress Note - Hospitalist 08/14/23 1454 MR#: [id number] Acct: [id number] Name: OLGA DONALDSON Rep #:[id number] : 1945 78 From: Nestor roman DO PCP: Dr. Ramone Smiley MD Status:ADM IN Location: [place] [address] Reason for Visit Reason for Visit: Diagnoses [...] 08/14/23 13:49 AG (Rec: 08/14/23 13:49 AG [id number]) Nutrition Malnutrition Evidence of Malnutrition Exists Yes [...] (Auto) 79.7 H, Lymph% (Auto) 11.1 L, Irion % (Auto) 6.1, Eos % (Auto) 0.6, [...] Catheterized Urine Culture - Preliminary GNR lactose hide or skin buffer 08/13/23 12:05 Blood Culture (Wb) - Anticubital Right Blood Culture - Preliminary GNR lactose hide or skin buffer 08/13/23 11:10 Blood Culture (Wb) - Anticubital Right Blood Culture - Preliminary GNR lactose hide or skin buffer 08/13/23 11:00 Nasal Secretion SARS-CoV-2 & FLU [...] is a 78-year-old female who presented to [facility] ED on 08/13/2023 with increasing generalized [...] cultures preliminarily positive for gram-negative wes lactose hide or skin buffer, follow-up speciation and sensitivities. 3. LIA, resolved [...] 35 minutes. Charges/Coding Visit Charges Inpatient E&M: 23747 Subs Hosp L2 08/14/23 1508 <Electronically signed by Nestor Bartlett DO> Cosigner Signature (if applicable): CC: ~ Signed [facility] Work Phone: 1(100) 159-828912-14-2023 Discharge summary Author [facility] August 13, 2023 3:29pm Note Date/Time August 13, 2023 10:40am [facility] Medical Records Department [address] [place] [address] Emergency Department Summary 08/13/23 MR#: [id number] Acct: [id number] Name: OLGA DONALDSON Rep #:[id number] : 1945 78 From: Robert Allison DO PCP: Dr. Ramone Smiley MD Status:ADM IN Location: [place] [address] HPI History of Present Illness Chief Complaint: [...] She denies chest pain. She self caths. [facility] Medical History Anemia Anxiety Aortic stenosis Asthma [...] tablet 81 mg PO DAILY [facility] 01/21/16 [History Last Taken 08/12/23] [...] 82.7 H Lymph % (Auto) 9.4 L Irion % (Auto) 6.1 Eos % (Auto) 0.1 [...] Sl. Cloudy Urine pH 5.0 Ur Specific [place] 1.015 Urine Protein 30 H Urine Glucose [...] Acute hyponatremia Disposition Disposition: Acute Care Hospital [facility] Discharge Date/Time: 08/13/23 14:54 What to do if you have Problems For any increased pain, shortness of breath, bleeding, nausea or vomiting, chestpain, or any unexpected problems, contact your Primary Care Provider. Call [facility] ([phone]) or report to the closest Emergency Room. Call 911 if necessary. 08/13/23 1529 <Electronically signed by Robert Allison DO> Cosigner Signature (if applicable): CC: Dr. Ramone Smiley MD ~ Signed [facility] Work Phone: [phone]) 900-190012-14-2023 History and physical note Author Heydi Amaya [facility] August 13, 2023 2:47pm Note Date/Time August 13, 2023 2:33pm [facility] Medical Records Department [address] [place] [address] H&P Exam - Hospitalist 08/13/23 1431 MR#: [id number] Acct: [id number] Name: OLGA DONALDSON Rep #:[id number] : 1945 78 From: Heydi Amaya MD PCP: Dr. Ramone Smiley MD Status:ADM IN Location: [place] [address] HPI - General General Date of Admission: 08/13/23 Date of Service: 08/13/23 Chief Complaint: Increasing weakness HPI Narrative OLGA DONALDSON, is [id number] female history of GERD, COPD, hypertension, diabetes, chronic urinary retention with self cathing presented to [facility] 08/13/2023 with increasing generalized weakness and [...] No other acute complaints at this time. [facility] Medical History Anemia Anxiety Aortic stenosis Asthma [...] (Auto) 82.7 H, Lymph% (Auto) 9.4 L, Irion % (Auto) 6.1, Eos % (Auto) 0.1, [...] Sl. Cloudy, Urine pH 5.0, Ur Specific [place] 1.015, Urine Protein 30 H, Urine Glucose [...] 11:04 EST Reading Location ID and State: [address] [place] [address] , Service support , Assessment & Plan [...] Amaya MD Charges/Coding Visit Charges Inpatient E&M: 39967 Init Hosp L2 08/13/23 1447 <Electronically signed by Heydi Amaya MD> Cosigner Signature (if applicable): CC: Dr. Ramone Smiley MD; Dr. Heydi Amaya MD~ Signed [facility] Work Phone: 1(667) 713-468005-31-[address] Lockwood [facility] January 28, 2023 4:30pm Note Date/Time January 28, 2023 3:17p m [facility] Medical Records Department [address] [place] [address] Emergency Department Summary 01/28/23 MR#: [id number] Acct: [id number] Name: OLGA DONALDSON Rep #:[id number] : 1945 78 From: Joseph Lockwood MD [...] pain which she has every single day. [facility] Medical History Anemia Anxiety Aortic stenosis Asthma [...] unit/mL subcutaneous solution 22 unit SQ BIDCM ligvbrlz47/03/20 [History Last Taken Unknown] insulin detemir U-100 100 unit/mL (3 mL) subcutaneous pen 56 units subcut BID DIABETES 12/02/19 [History Last Taken Unknown] pantoprazole [...] % (Auto) 56.6 Lymph % (Auto) 34.2 Irion % (Auto) 5.6 Eos % (Auto) 2.6 [...] rhythm with a rate of 86. Normal UT and QTc intervals. No ischemic changes. Interpreted [...] UNIT/ML solution 22 unit SQ BIDCM vitamin P-ckrjzsgeuuxq-lnyofsk 500 MG tablet,chewable 250 mg PO DAILY Primary Care Provider: Ramone Smiley Referrals: Ramone Smiley MD [Primary Care Provider] - 3-5 Days Disposition Disposition: Home, Self Care What to do if you have Problems For any increased pain, shortness of breath, bleeding, nausea or vomiting, chestpain, or any unexpected problems, contact your Primary Care Provider. Call [facility] ([phone]) or report to the closest Emergency Room. Call 911 if necessary. 01/28/23 1630 <Electronically signed by Joseph Lockwood MD> Cosigner Signature (if applicable): CC: Dr. Ramone Smiley MD ~ Signed [facility] Work Phone: 1(683) 534-602609-07-2022 NoteHNO ID: [id number] Author: 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 APRN.COPPER FLOTATION OPERATOR Service: ? Author Type: Nurse Practitioner [...] an every 2-week basis for 4 cycles (CALGB-25319). Completed a year of trastuzumab 06/16/06. Referred back or anemia. Admitted to [facility] 12/02/2019 for chest pain with ambulation. [...] 1.00 - 4.00 k/uL 2.70 2.30 2.03 Irion% % 7.0 6.6 6.9 Abs Irion <0.87 k/uL 0.49 0.47 0.47 Eosin% % [...] loss - ICD9: 280.0, (more content not included)...[facility]09-07-2022 History of Present illness Narrative* 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 APRN.COPPER FLOTATION OPERATOR - 05/07/2022 1:33 PM EDT Chief [...] an every 2-week basis for 4 cycles (CALGB-95243). Completed a year of trastuzumab 06/16/06. Referred back or anemia. Admitted to [facility] 12/02/2019 for chest pain with ambulation. [...] 1.00 - 4.00 k/uL 2.70 2.30 2.03 Irion% % 7.0 6.6 6.9 Abs Irion <0.87 k/uL 0.49 0.47 0.47 Eosin% % [...] visit. 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 APRN.MARLI documented in [facility] encounter[facility] Miscellaneous Notes* Telephone Encounter - Stacie Varner LPN - 02/10/2022 8:33 AM EDT Pt called and notified, pt voices understanding. Stacie Varner LPN * Telephone Encounter - Joseph Rolle DO - 02/10/2022 6:20 AM EDT Can let her know CBC and iron levels doing well. Follow up as scheduled. Joseph Rolle DO documented in this encounterTri[facility]01-31-2022 Miscellaneous Notes* Telephone Encounter - Joseph Rolle DO - 09/30/2021 12:13 PM EST Okay to wait until October. Joesph Rolle DO * Telephone Encounter - Jocelyn [...] filed. Joseph Rolle DO [facility] Miscellaneous Notes* Telephone Encounter - Marina [...] drive and will complete lab work and orange picker stool cards 03/21/2021, same day as [...] may have had one more recently at [facility]). Add on for 5 more doses of iron sucrose and repeat CBC/Iron studies about a month after completing. Joseph Rolle DO [facility] note Author Eboni Chan [facility] December 30, 2023 2:23pm Note Date/Time December 30, 2023 2:24pm [facility] Medical Records Department [address] [place] [address] Counseling Note - Pharmacy 12/30/23 1423 MR#: [id number] Acct: [id number] Name: OLGA DONALDSON Rep #:[id number] : 1945 78 From: Eboni Chan PCP: Dr. Ramone Smiley MD Status:ADM IN Location: [place] [address] Pharmacy ID Med Reconciliation Pharmacy Service has performed discharge medication reconciliation for this patient. The patient's discharge medication list was reviewed for discrepancies and discrepancies were resolved. Medications at Discharge Home Medications aspirin 81 mg chewable tablet 81 mg PO DAILY [facility] 01/21/16 albuterol sulfate 90 mcg/actuation aerosol [...] bisacodyl 10 mg rectal suppository 10 mg UT DAILY #0 ea 12/30/23 insulin glargine-yfgn 100 [...] tab PO BID #0 tabs 12/30/23 12/30/23 4653 <Electronically signed by Eboni Chan> Date _ Eboni Betancourt Signature (if applicable): Date CC: ~ Signed [facility] Work Phone: Consult note Author Eboni Chan [facility] Note Date/Time January 24, 2025 2:52p m [facility] Medical Records Department [address] [place] [address] Counseling Note - Pharmacy 01/24/25 0973 MR#: [id number] Acct: [id number] Name: OLGA DONALDSON Rep #:[id number] : 1945 80 From: Eboni Chan PCP: Dr. Ramone Smiley MD Status:ADM [facility] Counseling Pharmacy Service has performed discharge medication [...] mg chewable tablet 81 mg PO DAILY [facility] 01/21/16 magnesium oxide 400 mg (241.3 [...] Signature (if applicable): Date CC: ~ Signed [facility] Work Phone: Discharge summary Author Sunny Bell [facility] December 30, 2023 2:14pm Note Date/Time December 30, 2023 2:05pm [facility] Medical Records Department [address] [place] [address] Transfer to [facility] MR#: [id number] Acct: [id number] Name: OLGA DONALDSON Rep #:[id number] : 1945 78 From: Sunny Blue PCP: Dr. Ramone Smiley MD Status:ADM IN Certification of patient admission REQUIRED AT TIME OF ADMISSION. I CERTIFY THAT POST-HOSPITAL ECF SERVICES ARE REQUIRED TO BE GIVEN ON AN IN-PATIENT BASIS BECAUSE OF THE ABOVE NAMED PATIENT'S NEED FOR PENITENTIARY CARE ON A CONTINUING BASIS FOR THE CONDITION(S) FOR WHICH HE/SHE WAS RECEIVING IN-PATIENT HOSPITAL SERVICES PRIOR TO HIS/HER TRANSFER TO THE [facility]. 12/30/23 1414<Electronically signed by Sunny Bell [...] Patient is a 78-year-old female who presented [facility] ED on 12/27/2023 with left hip pain after a fall at home. She got up from the couch toself catheter, got her walker turned and then lost balance and fell on her left hip. 1. Acute debility due to left impacted transcervical femoral neck fracture. ? Admit under inpatient status to [facility]. Orthopedics consulted. N.p.o. at midnight. [...] cousin over the phone who lives in [facility]. Patient is clinically doing well. Currently [...] 0RF bisacodyl 10 mg Suppository 10 mg UT DAILY Qty: 0 0RF insulin glargine-yfgn 100 [...] in before D/C Order can be placed): [facility] 12/30/231413 <Electronically signed by Sunny Bell MD> Cosigner Signature (if applicable): CC: Dr. Nestor Bartlett DO; Dr. Ramone Smiley MD; Dr. Gabriel Byrd MD ~ [facility] Work Phone: Discharge summary Author Sunny Bell [facility] December 30, 2023 2:26pm Note Date/Time December 30, 2023 2:21pm [facility] Medical Records Department [address] [place] [address] [place] [address] Discharge Summary 12/30/231413 MR#: [id number] Acct: [id number] Name: OLGA DONALDSON Rep #:[id number] : 1945 78 From: Sunny Blue PCP: Dr. Ramone Smiley MD Status:ADM IN Location: [facility] [id number] Providers Date of Admission: 12/27/23 Date of [...] Patient is a 78-year-old female who presented [facility] ED on 12/27/2023 with left hip pain after a fall at home. She got up from the couch toself catheter, got her walker turned and then lost balance and fell on her left hip. 1. Acute debility due to left impacted transcervical femoral neck fracture. ? Admit under inpatient status to [facility]. Orthopedics consulted. N.p.o. at midnight. [...] cousin over the phone who lives in [facility]. Patient is clinically doing well. Currently [...] tablet 81 mg PO DAILY [facility] 01/21/16 albuterol sulfate 90 mcg/actuation [...] bisacodyl 10 mg rectal suppository 10 mg UT DAILY #0 ea 12/30/23 insulin glargine-yfgn 100 [...] % (Auto) 63.9, Lymph % (Auto) 25.3, Irion % (Auto) 8.7, Eos % (Auto) 1.4, [...] 0RF bisacodyl 10 mg Suppository 10 mg UT DAILY Qty: 0 0RF insulin glargine-yfgn 100 [...] in before D/C Order can be placed): [facility] Charges/Coding Visit Charges Inpatient E&M: 31180 Disch Hosp >30min 12/30/23 1426 <Electronically signed by Sunny Bell MD> Cosigner Signature (if applicable): CC: Dr. Ramone Smiley MD; Dr. Sunny Bell MD; Dr. Gabriel Byrd MD~ Signed [facility] Work Phone: Discharge summary Author [facility] Note Date/Time January 24, 2025 1:27p m [facility] Medical Records Department [address] [place] [address] Instructions for Home/Discharge Instructions 01/24/25 1326 MR#: [id number] Acct: [id number] Name: OLGA DONALDSON Rep #:[id number] : 1945 80 From: Melba Hartmann MD [...] DO; Dr. Marcelina Soto MD ~ Signed [facility] Work Phone: Discharge summary Author [facility] Note Date/Time January 26, 2025 5:10a m [facility] Medical Records Department [address] [place] [address] Emergency Department Summary 01/26/25 MR#: [id number] Acct: [id number] Name: OLGA DONALDSON Rep #:[id number] : 1945 80 From: Jg Bryan DO [...] symptoms and therefore comes in for evaluation [facility] Medical History Fracture of hip, left, closed [...] mg tablet 25 mg PO BID BLOOD UT [facility]SS[facility] 08/16/18 01/15/25 History pantoprazole 40 mg [...] cardiac dysrhythmia. Patient was kept on the library monitor and there was no dysrhythmia noted. [...] % (Auto) 65.0 Lymph % (Auto) 25.1 Irion % (Auto) 6.7 Eos % (Auto) 2.8 [...] the upper limits for size. Reading Location: [facility] Chest x-ray as interpreted by the [...] you have any further concerns Print Language: Citizen Of [place] Disposition Disposition: Home, Self Care What to do if you have Problems For any increased pain, shortness of breath, bleeding, nausea or vomiting, chestpain, or any unexpected problems, contact your Primary Care Provider. Call [facility] ([phone]) or report to the closest Emergency Room. Call 911 if necessary. 01/26/25 8852 <Electronically signed by Jg Andes DO> Cosigner Signature (if applicable): CC: Dr. Ramone Smiley MD ~ Signed [facility] Work Phone: Discharge summary Author Aj Holley [facility] Note Date/Time February 04, 2025 10:27 am [facility] Medical Records Department [address] [place] [address] Emergency Department Summary 02/04/25 MR#: [id number] Acct: [id number] Name: OLGA DONALDSON Rep #:[id number] : 1945 80 From: Aj Holley MD [...] of the couch, and has no pain. [facility] Medical History Elevated troponin Coronary artery disease [...] mg tablet 25 mg PO BID BLOOD UT [facility] 08/16/18 01/15/25 History pantoprazole 40 mg [...] DAILY 01/15/25 History 0.005 % eye drops ([facility]) psyllium husk 0.4 gram capsule 0.4 g [...] 75.4 H Lymph % (Auto) 15.7 L Irion % (Auto) 6.6 Eos % (Auto) 1.7 [...] MD [Primary Care Provider] - Print Language: Citizen [place] What to do if you have Problems For any increased pain, shortness of breath, bleeding, nausea or vomiting, chestpain, or any unexpected problems, contact your Primary Care Provider. Call [facility] ([phone]) or report to the closest Emergency Room. [...] cc: Dr. Ramone Smiley MD ~* Signed [facility] Work Phone: Evaluation note* Diagnosis Onset Date Resolution Status Multiple thyroid nodules acu te Chronic renal failure, stage 3 (moderate) chronic Hypercalcemia chronic Abscess acute Abscess acute Abscess acute [facility] Work Phone: Evaluation note* Diagnosis Iron deficiency anemia due to chronic blood loss- Primary Iron deficiency anemia secondary to blood loss (chronic) [facility] Diagnosis Onset Date Resolution Status Abscess acute Abscess acute Abscess acute Abscess acute Abscess acute Paronychia of left index finger acute [facility] Work Phone: Evaluation note* Diagnosis Iron deficiency anemia due to chronic blood loss- Primary Iron deficiency anemia secondary to blood loss (chronic) [facility] Diagnosis Anemia, unspecified type- Primary documented in this encounter [facility] note* Diagnosis Iron deficiency anemia due to chronic blood loss- Primary Iron deficiency anemia secondary to blood loss (chronic) documented in this [facility] noteNo assessment information availableWWadsworth-Rittman [facility] Work Phone: Evaluation note* Diagnosis Onset Date Resolution Status Gastroenteritis acute [facility] Work Phone: Evaluation note* Diagnosis Onset Date Resolution Status Gastroenteritis acute Falls acute Weakness acute Asthma chronic COPD (chronic obstructive pulmonary disease) chronic GERD (gastroesophageal reflux disease) chronic History of malignant neoplasm of breast chronic Hypertension chronic Neurogenic bladder chronic Type 2 diabetes mellitus chr onic Acute hyponatremia resolved Acute UTI resolved LIA (acute kidney injury) re solved [facility] Work Phone: Evaluation note* Diagnosis Onset Date Resolution Status Fracture of hip, left, closed acute [facility] Work Phone: Evaluation note* Diagnosis Onset Date Resolution Status Falls acute Fracture of hip, left, closed acute Microcytic anemia acute Weakness acute Chronic renal failure, stage 3 (moderate) chronic Hypercalcemia chronic [facility] Work Phone: Evaluation note* Diagnosis Onset Date Resolution Status Gastroenteritis acute Acute hyponatremia acute Acute UTI acute LIA (acute kidney injury) ac [place] acute Weakness acute Asthma chronic COPD (chronic obstructive pulmonary disease) chronic GERD (gastroesophageal reflux disease) chronic History of malignant neoplasm of breast chronic Hypertension chronic Neurogenic bladder chronic Type 2 diabetes mellitus chr onic [facility] Work Phone: History and physical note Author Heydi Amaya [facility] August 13, 2023 2:47pm Note Date/Time August 13, 2023 2:33pm [facility] Medical Records Department [address] [place] [address] H&P Exam - Hospitalist 08/13/23 1431 MR#: [id number] Acct: [id number] Name: OLGA DONALDSON Rep #:[id number] : 1945 78 From: Heydi Amaya MD PCP: Dr. Ramone Smiley MD Status:ADM IN Location: [place] [id number] HPI - General General Date of Admission: 08/13/23 Date of Service: 08/13/23 Chief Complaint: Increasing weakness HPI Narrative OLGA DONALDSON, is [id number] female history of GERD, COPD, hypertension, diabetes, chronic urinary retention with self cathing presented to [facility] 08/13/2023 with increasing generalized weakness and [...] No other acute complaints at this time. [facility] Medical History Anemia Anxiety Aortic stenosis Asthma [...] (Auto) 82.7 H, Lymph% (Auto) 9.4 L, Irion % (Auto) 6.1, Eos % (Auto) 0.1, [...] Sl. Cloudy, Urine pH 5.0, Ur Specific [place] 1.015, Urine Protein 30 H, Urine Glucose [...] Amaya MD Charges/Coding Visit Charges Inpatient E&M: 28953 Init Hosp L2 08/13/23 1447 <Electronically signed by Heydi Amaya MD> Cosigner Signature (if applicable): CC: Dr. Ramone Smiley MD; Dr. Heydi Amaya MD~ Signed [facility] Work Phone: History and physical note Author Tono Gomez [facility] Note Date/Time February 09, 2025 3:52 pm [facility] Medical Records Department [address] [place] [address] H&P Exam - Hospitalist 02/09/25 1525 MR#: [id number] Acct: [id number] Name: OLGA DONALDSON Rep #:[id number] : 1945 80 From: Tono BHATTI PCP: [...] tightness, no dizziness or lightheadedness, no palpitations. [facility] Medical History COPD with exacerbation Anemia History [...] mg tablet 25 mg PO BID BLOOD [facility] ESS[facility] 08/16/18 01/15/25 History pantoprazole 40 mg [...] (Auto) 86.9 H, Lymph % (Auto) 7.3L, Irion % (Auto) 4.5, Eos % (Auto) 0.1, [...] degree of bibasilar linear atelectasis. Reading Location: [facility] Assessment & Plan Assessment/Plan (1) COPD exacerbation: [...] DAVY Dykes; Dr. Ramone Smiley MD~ Signed [facility] Work Phone: History and physical note Author Nestor Bartlett [facility] Note Date/Time February 15, 2025 2:57 pm [facility] Medical Records Department [address] [place] [address] H&P Exam - Hospitalist 02/15/25 1401 MR#: [id number] Acct: [id number] Name: OLGA DONALDSON Rep #:[id number] : 1945 80 From: Nestor roman DO PCP: Dr. Ramone Smiley MD Status:ADM [facility]ED [id number] - General General Date of Admission: 02/15/25 Date of Service: 02/15/25 Chief Complaint: Shortness of breath, acute on chronic debility HPI Narrative OLGA DONALDSON, is a 80 F who presented to [facility] ED on 02/15/2025 with shortness of [...] currently. Will be admitted for further management. [facility] Medical History (Updated 02/15/25 @ 13:[address] Robert Allison, ) History of diabetes mellitus COPD exacerbation Hypoxia [...] mg tablet 25 mg PO BID BLOOD [place] [facility] 08/16/18 01/15/25 History pantoprazole 40 mg [...] 01/15/25 01/15/25 History 0.005 % eye drops ([facility]) psyllium husk 0.4 gram capsule 0.4 g [...] 82.5 H, Lymph % (Auto) 10.9 L, Irion % (Auto) 4.8, Eos % (Auto) 0.7, [...] evidence of acute cardiopulmonary process. Reading [facility] Assessment & Plan Assessment/Plan (1) Generalized weakness: PLAN: Plan Patient is an 80-year-old female who presented [facility] ED on 02/15/2025 with recurrent shortness of breath and acute on chronic debility. 1. Acute on chronic debility ? Admit under observation status to [facility]. PT/OT/case management consulted. Multiple recent [...] 75 minutes. Charges/Coding Visit Charges Inpatient E&M: 01414 Init Hosp L3 02/15/25 4685 <Electronically signed by Nestor Bartlett DO> Cosigner Signature (if applicable): CC: Dr. Nestor Bartlett DO; Dr. Ramone Smiley MD~ Signed [facility] Work Phone: Hospital Discharge instructions Additional Instructions Chest x-ray negative. COVID, flu, RSV negative. Your glucose 321 the lab normal gap. You are given 10 units of short acting insulin. You were started on antibiotics and steroids. Your glucose will be elevated with the steroids. Continue insulin including your sliding scale. Next dose of antibiotics steroids is tomorrow. This was sent to [facility] Work Phone: Hospital Discharge instructions Additional Instructions Take medications as prescribed. Follow-up your doctor in outpatient setting. Return with worsening symptoms or concerns.[facility] Work Phone: Hospital Discharge instructions Additional [...] have any further concernsWWadsworth-[facility] Work Phone: Hospital Discharge instructions Additional Instructions Continue your steroids and your nebulizer treatments as previously directed. Your chest x-ray did not show pneumonia today. Continue to wear your nasal cannula oxygen.[facility] Work Phone: Reason for referral (narrative)No [...] Yes December 02, 2021 8:47am Power of Windshield Wiper Repairer Yes December 02 8:47am Documents on File Type Date Recorded Patient Pulper Expl anation Advance Directive(s) 05/12/2016 10:06 AM Advance Directive(s) 04/30/2016 11:10 AM Advance Directive(s) 02/19/2016 5:55 AM Advance Directive(s) 02/14/2016 3:07 PM Advance Directive Response Recorded Date/ Time Advance Directives Yes December 02 7:47am Living Will Yes July 14, 2 022 2:52pm Power of Windshield Wiper Repairer Yes July 14, 2022 2:52pm Name of Medical Power of Windshield Wiper Repairer son July 14, 2022 2:52pm Advance Directive Response Recorded Date/ Time Advance Directives Yes December 02 8:47am Living Will Yes July 14, 022 3:52pm Power of Windshield Wiper Repairer Yes July 14, 2022 3:52pm Advance Directive Response Recorded Date/ Time Name of Medical Power of Windshield Wiper Repairer SHANTELLE January 28, 2023 3:11pm Advance Directives Yes December 02 8:47am Living Will Yes January 28, 2023 3 :11pm Power of Windshield Wiper Repairer Yes January 28, 2023 3:11pm Advance Directive Response Recorded Date/ Time Name of Medical Power of Windshield Wiper Repairer Ursula Anika July 18, 2023 11:35pm Advance Directives Yes December 02 7:47am Living Will Yes July 18 023 11:35pm Power of Windshield Wiper Repairer Yes July 18, 2023 11:35pm Advance Directive Response Recorded Date/ Time Name of Medical Power of Windshield Wiper Repairer . August 07, 2023 9:45pm Advance Directives Yes December 02 7:47am Living Will No August 13, 2 023 3:22pm Power of Windshield Wiper Repairer No August 13, 2023 3:22pm Name of Medical Power of Windshield Wiper Repairer Ursula Donaldson July 18, 2023 11:35pm Advance Directive Response Recorded Date/ Time Advance Directives Yes December 02 8:47am Living Will No August 13, 2 023 4:22pm Power of Windshield Wiper Repairer No August 13, 2023 4:22pm Advance Directive Response Recorded Date/ Time Advance Directives Yes December 02 8:47am Living Will No December 27, 2023 11:02pm Power of Windshield Wiper Repairer No December 26 11:02pm Advance Directive Response Recorded Date/ Time Advance Directives Yes December 02 8:47am Living Will No December 28, 2023 12:27am Power of Windshield Wiper Repairer No December 27 12:27am Advance Directive Response Recorded Date/ Time Name of Medical Power of Windshield Wiper Repairer . August 07, 2023 9:45pm Advance Directives Yes December 02 7:47am Living Will No August 13 11:05am Power of Windshield Wiper Repairer No August 13, 2023 11:05am Name of Medical Power of Windshield Wiper Repairer Ursula Donaldson July 18, 2023 11:35pm Advance Directive Response Recorded Date/ Time Do you have a Healthcare Power of Windshield Wiper Repairer? No January 07, 2025 3:00pm Advance Directives Yes December 02 8:47am Advance Directive Response Recorded Date/ Time Do you have a Healthcare Power of Windshield Wiper Repairer? No January 15, 2025 2:24pm Do you have a Healthcare Power of Windshield Wiper Repairer? No January 07, 2025 3:00pm Advance Directives Yes December 02 8:47am Advance Directive Response Recorded Date/ Time Do you have a Healthcare Power of Windshield Wiper Repairer? No January 15, 2025 2:24pm Do you have a Healthcare Power of Windshield Wiper Repairer? No January 20, 2025 4:39am Do you have a Healthcare Power of Windshield Wiper Repairer? No January 07, 2025 3:00pm Advance Directives Yes December 02 8:47am Advance Directive Response Recorded Date/ Time Do you have a Healthcare Power of Windshield Wiper Repairer? No January 15, 2025 2:24pm Do you have a Healthcare Power of Windshield Wiper Repairer? No January 20, 2025 4:39am Do you have a Healthcare Power of Windshield Wiper Repairer? No January 07, 2025 3:00pm Do you have a Healthcare Power of Windshield Wiper Repairer? No January 26, 2025 3:01am Advance Directives Yes December 02 8:47am Advance Directive Response Recorded Date/ Time Do you have a Healthcare Power of Windshield Wiper Repairer? No January 15, 2025 2:24pm Do you have a Healthcare Power of Windshield Wiper Repairer? No January 20, 2025 4:39am Do you have a Healthcare Power of Windshield Wiper Repairer? Yes February 04, 2025 6:32am Name of Medical Power of Windshield Wiper Repairer February 04, 2025 6:32am Do you have a Healthcare Power of Windshield Wiper Repairer? No January 07, 2025 3:00pm Do you have a Healthcare Power of Windshield Wiper Repairer? No January 26, 2025 3:01am Advance Directives Yes December 02 8:47am Advance Directive Response Recorded Date/ Time Do you have a Healthcare Power of Windshield Wiper Repairer? No January 15, 2025 2:24pm Do you have a Healthcare Power of Windshield Wiper Repairer? No January 20, 2025 4:39am Do you have a Healthcare Power of Windshield Wiper Repairer? Yes February 04, 2025 12:35pm Name of Medical Power of Windshield Wiper Repairer February 04, 2025 6:32am Do you have a Healthcare Power of Windshield Wiper Repairer? No January 07, 2025 3:00pm Do you have a Healthcare Power of Windshield Wiper Repairer? No January 26, 2025 3:01am Advance Directives Yes December 02 8:47am Advance Directive Response Recorded Date/ Time Do you have a Healthcare Power of Windshield Wiper Repairer? No January 15, 2025 2:24pm Do you have a Healthcare Power of Windshield Wiper Repairer? No January 20, 2025 4:39am Do you have a Healthcare Power of Windshield Wiper Repairer? Yes February 04, 2025 12:35pm Name of Medical Power of Windshield Wiper Repairer February 04, 2025 6:32am Do you have a Healthcare Power of Windshield Wiper Repairer? Yes February 09, 2025 12:01pm Name of Medical Power of Windshield Wiper Repairer ursula teo bradshaw February 09, 2025 12:01pm Do you have a Healthcare Power of Windshield Wiper Repairer? No January 07, 2025 3:00pm Do you have a Healthcare Power of Windshield Wiper Repairer? No January 26, 2025 3:01am Advance Directives Yes December 02 8:47am Advance Directive Response Recorded Date/ Time Do you have a Healthcare Power of Windshield Wiper Repairer? No January 15, 2025 2:24pm Do you have a Healthcare Power of Windshield Wiper Repairer? No January 20, 2025 4:39am Do you have a Healthcare Power of Windshield Wiper Repairer? Yes February 04, 2025 12:35pm Name of Medical Power of Windshield Wiper Repairer February 04, 2025 6:32am Do you have a Healthcare Power of Windshield Wiper Repairer? Yes February 09, 2025 4:43pm Name of Medical Power of Windshield Wiper Repairer ursula lees jr February 09, 2025 4:43pm Do you have a Healthcare Power of Windshield Wiper Repairer? No January 07, 2025 3:00pm Do you have a Healthcare Power of Windshield Wiper Repairer? No January 26, 2025 3:01am Advance Directives Yes December 02 8:47am Advance Directive Response Recorded Date/ Time Do you have a Healthcare Power of Windshield Wiper Repairer? No January 15, 2025 2:24pm Do you have a Healthcare Power of Windshield Wiper Repairer? No January 20, 2025 4:39am Do you have a Healthcare Power of Windshield Wiper Repairer? Yes February 04, 2025 12:35pm Name of Medical Power of Wind[employer] Wiper Repairer February 04, 2025 6:32am Do you have a Healthcare Power of Windshield Wiper Repairer? Yes February 09, 2025 4:43pm Name of Medical Power of Windshield Wiper Repairer ursula lees jr February 09, 2025 4:43pm Do you have a Healthcare Power of Windshield Wiper Repairer? Yes February 15, 2025 8:36am Do you have a Healthcare Power of Windshield Wiper Repairer? No January 07, 2025 3:00pm Do you have a Healthcare Power of Windshield Wiper Repairer? No January 26, 2025 3:01am Advance Directives Yes December 02 8:47am Advance Directive Response Recorded Date/ Time Do you have a Healthcare Power of Windshield Wiper Repairer? No January 15, 2025 2:24pm Do you have a Healthcare Power of Windshield Wiper Repairer? No January 20, 2025 4:39am Do you have a Healthcare Power of Windshield Wiper Repairer? Yes February 04, 2025 12:35pm Name of Medical Power of Wind[employer] Wiper Repairer February 04, 2025 6:32am Do you have a Healthcare Power of Windshield Wiper Repairer? Yes February 09, 2025 4:43pm Name of Medical Power of Windshield Wiper Repairer ursula lees jr February 09, 2025 4:43pm Do you have a Healthcare Power of Windshield Wiper Repairer? Yes February 15, 2025 3:20pm Do you have a Healthcare Power of Windshield Wiper Repairer? No January 07, 2025 3:00pm Do you have a Healthcare Power of Windshield Wiper Repairer? No January 26, 2025 3:01am Advance Directives Yes December 02 8:47am Advance Directive Response Recorded Date/ Time Do you have a Healthcare Power of Windshield Wiper Repairer? No January 15, 2025 2:24pm Do you have a Healthcare Power of Windshield Wiper Repairer? No January 20, 2025 4:39am Do you have a Healthcare Power of Windshield Wiper Repairer? Yes February 04, 2025 12:35pm Name of Medical Power of Windshield Wiper Repairer February 04, 2025 6:32am Do you have a Healthcare Power of Windshield Wiper Repairer? Yes February 09, 2025 4:43pm Name of Medical Power of Windshield Wiper Repairer ursula lees jr February 09, 2025 4:43pm Do you have a Healthcare Power of Windshield Wiper Repairer? Yes February 15, 2025 3:20pm Do you have a Healthcare Power of Windshield Wiper Repairer? No January 07, 2025 3:00pm Do you have a Healthcare Power of Windshield Wiper Repairer? No January 26, 2025 3:01am Do you have a Healthcare Power of Windshield Wiper Repairer? Yes February 18, 2025 8:56pm Advance Directives Yes December 02 8:47am Chief Complaint and Reason for Visit Chief Complaint THYROID SCREENING HYPERPARATHYROIDISM VAGINAL LUMP, PAINFUL VAGINAL LUMP F/U fu per Reason for Visit Multiple thyroid nod ules Chronic renal failure, stage 3 (moderate) Hypercalcemia Abscess Abscess Abscess Chief Complaint VAGINAL LUMP, PAINFU L VAGINAL LUMP F/U fu per F/U PER 1 WK FU LEFT FINGER COMPLAINT/CONCERNED FOR [...] sob January 26, 2025 3:00a m S/P [facility] 01/24 (PCU) January 31, 2025 1:42p m [...] sob January 26, 2025 3:00a m S/P [facility] 01/24 (PCU) January 31, 2025 1:42p m [...] sob January 26, 2025 3:00a m S/P [facility] 01/24 (PCU) January 31, 2025 1:42p m [...] sob January 26, 2025 3:00a m S/P [facility] 01/24 (U) January 31, 2025 1:42p m [...] sob January 26, 2025 3:00a m S/P [facility] 01/24 (PCU) January 31, 2025 1:42p m Reason for [...] sob January 26, 2025 3:00a m S/P [facility] 01/24 ([facility]) January 31, 2025 1:42p m HYPOXIA, EXACERBATION [...] sob January 26, 2025 3:00a m S/P [facility] 01/24 ([facility]) January 31, 2025 1:42p m HYPOXIA, EXACERBATION [...] Generalized weakness February 15, 2025 2:0 1pm Chief Complaint Admit Date LT HIP/PT HAS [...] sob January 26, 2025 3:00a m S/P [facility] 01/24 (PCU) January 31, 2025 1:42p m [...] ACUTE ON CHRONIC DEBILITY February 17 5:04pm sob February 18, 2025 8:49 pm Additional Source Comments INFORMATION SOURCE (unrecogn ized section and content) DATE CREATED AUTHOR 02/25/2018 [facility] DATE CREATED AUTHOR AUTHOR'S ORGANIZ ATION 05/08/2022 [facility] DATE CREATED AUTHOR AUTHOR'S ORGANIZ ATION [facility] Goals (unrecognized section and content) Goals may [...] or prosecute any alcohol or drug abuse patient.[facility] the event this information is protected by the Federal Confidentiality of Alcohol and Drug Abuse Patient Records regulations: The Federal rules restrict any use of the information to criminally investigate or prosecute any alcohol or drug abuse patient.[facility] Hospital[facility] the event this information is protected by the Federal Confidentiality of Alcohol and Drug Abuse Patient Records regulations: The Federal rules restrict any use of the information to criminally investigate or prosecute any alcohol or drug abuse patient.[facility] the event this information is protected by the Federal Confidentiality of Alcohol and Drug Abuse Patient Records regulations: The Federal rules restrict any use of the information to criminally investigate or prosecute any alcohol or drug abuse patient.[facility] Hospital[facility] the event this information is protected by the Federal Confidentiality of Alcohol and Drug Abuse Patient Records regulations: The Federal rules restrict any use of the information to criminally investigate or prosecute any alcohol or drug abuse patient.[facility] Care Teams (unrecognized sec tion and [...] January 24, 2025 Dr. Sandeep Carlton , Other Provider Active Start: January 20, 2025 End: January 24, 2025 Dr. Melba Hartmann MD Attending Provider Active Start: January 20, 2025 End: January 24, 2025 Dr. Lucio Borden DO [...] Active Start: January 23, 2025 Dr. Sandeep aCrlton , DO Admit Provider Active Start: January [...] January 26, 2025 End: January 26, 2025 [employer] Sales Representative Relationship Specialty Start Date End Date Ramone Smiley MD PCP - General Family Practice 08/16/15 [employer] Sales Representative Relationship Specialty Start Date End Date Ramone Smiley MD PCP - General Family Practice 08/16/15 [employer] Sales Representative Relationship Specialty Start Date End Date Ramone Smiley MD PCP - General Family Practice 08/16/15 [employer] Sales Representative Relationship Specialty Start Date End Date Ramone Smiley MD PCP - General Family Practice 08/16/15 [employer] Sales Representative Relationship Specialty Start Date End Date Ramone [...] Care Provider, Referring P rovider Active Junito Charles PA, PA Attending Provider Active Team Status: Inactive [...] Smiley MD Primary Care Provider Active Dr. Remus Ungur , DO Emergency Provider Active Dr. Heydi Amaya MD Admit Provider, Other Provider A ctive Dr. Nestor Bartlett , DO Attending Provider, Other Provider Active Team Status: Active Member Role Status Dates Dr. Ramone Smiley MD Primary Care Provider Active Dr. Robert Allison , DO Emergency Provider Active Dr. Heydi Amaya MD Admit Provider Active Dr. Ramone Veras , DO Other Provider Active Dr. Nestor Bartlett [...] Primary Care Provider Active Dr. Robert Allison , Emergency Provider Active Dr. Heydi Amaya MD Admit Provider Active Dr. Ramone Veras , DO Other Provider Active Dr. Nestor Bartlett , DO Other Provider Active Dr. Sandeep Denson MD Attending Provider Active Team Status: Inactive Member Role Status Dates Dr. Ramone Smiley MD Primary Care Provider Active Dr. Winston Gill MD Attending Provider, Emergency Provider Active Team Status: Inactive Member Role Status Dates Dr. Ramone Smiley MD Primary Care Provider, Attending [facility] Active Team Status: Active Member Role Status Dates Dr. Ramone Smiley MD Primary Care Provider Active Dr. Queta Cortez MD Emergency Provider Active Dr. Nestor Bartlett DO Admit Provider, Attending Provider Active Team Status: Active Member Role Status Dates Dr. Ramone Smiley MD Primary Care Provider Active Dr. Queta Cortez MD Emergency Provider Active Dr. Nestor Bartlett , Admit Provider, Other Pro vider Active Dr. Gabriel Byrd MD Other Provider Active Dr. Sunny Bell MD Attending Provider, Other Provi bradley Active Team Status: Inactive Member Role Status Dates Dr. Ramone Smiley MD Primary Care Provider Active Dr. Queta Cortez MD Emergency Provider Active Dr. Nestor Bartlett , DO Admit Provider, Other Pro vider Active [...] End: January 31, 2025 Whitney Cao NP, RIFLE CASE REPAIRER-C Attending Provider Active Start: January 31, 2025 [...] Active Start: February 09, 2025 Dr. Jeremiah Corraels MD Emergency Provider Active S tart: February [...] February 13, 2025 Dr. Lucio Borden DO Admit Provider [...] February 13, 2025 Dr. Lucio Borden DO Admit Provider Active S tart: February 13, [...] Provider Active Star t: February 17, 2025 Team Status: Inactive Member Role Status Dates Dr. Ramone Smiley MD Primary Care Provider Active Start: February 18, 2025 End: February 19, 2025 Billy Kothari MD Emergency Provider Active Star t: February 18, 2025 End: February 19, 2025 Reason for Visit (unrecogniz ed [...] BE BASED ON THE PRIMARY CLINICAL RECORDS. [facility] [employer] [facility]. provides no warranty or guarantee of the accuracy or completeness of information in this document.
[2025-03-04 19:40] LABS: Mucous, Urine 0 SEEN /hpf (<or=2+)
[2025-03-04 19:45] LABS: Color, Urine Straw (Yellow); Glucose, Dipstick 100 mg/dl (Normal); Ketone-Dipstick 5 mg/dl (Negative); Leukocyte Esterase-Dipstick 500 /ul (Negative); Nitrite-Dipstick Negative (Negative); Occult Blood-Urine 150 /ul (Negative); Protein-Dipstick 100 mg/dl (Negative); Specific Gravity, Urine 1.010 (1.002-1.030); Urine Bilirubin Dipstick Negative (Negative)
[2025-03-04 20:03] VITALS: BP 120/44; PULSE 88; RESP 19; TEMP 36.8; O2SAT 95
[2025-03-04] MEDS: 0.9% Normal Saline (1000mL) 1,000 ML 999 ML IV (20:08)
[2025-03-04 20:10] LABS: Hematocrit 33.5 % (37-47); Hemoglobin 10.1 g/dL (12.0-15.0); Immature Granulocytes Count 0.050 X10^3/uL (0.0-0.0); Mean Corp Hgb Conc 30.1 g/dL (32-36); Mean Corpuscular Volume 90.3 fL (81-99); Mean Platelet Vol. 10.6 fl (6.2-12.0); NRBC Flagged by Analyzer 0 % (0-5); Platelet Count 334 K/mm3 (150-450); RBC Distribution Width CV 16.2 % (11.6-14.6); RBC Distribution Width SD 52.9 fl (35.1-43.9); Red Blood Count 3.71 M/mm3 (4.2-5.4); White Blood Count 7.2 K/mm3 (4.4-11.0)
[2025-03-04 20:17] LABS: Red Blood Cells-Urine 0-5 SEEN /hpf (0-5); Squamous Epithelial Cells - UA 0-5 SEEN /hpf (5-10); Yeast-Urine 2+ /hpf (None Seen)
[2025-03-04 20:30] LABS: Partial Thromboplast Time 25.2 Seconds (24.1-36.2); Prothrombin Time (Protime)PT. 13.8 SECONDS (11.7-14.9)
[2025-03-04 20:51] VITALS: BP 116/53; PULSE 89; RESP 18; TEMP 36.8; O2SAT 91
[2025-03-04 20:57] LABS: AST(SGOT) 26 U/L (<=31); Alanine Aminotransfer ALT/SGPT 25 U/L (<=34); Albumin, Serum 3.3 g/dL (3.4-4.8); Alkaline Phosphatase 79 U/L (35-104); Anion Gap 11 (5-15); BUN 23 mg/dL (4-19); BUN/Creat Ratio 18.1 RATIO (10-20); Calcium,Total 10.7 mg/dL (7.6-11.0); Carbon Dioxide 29.0 mmol/L (21.0-32.0); Chloride 97 mmol/L (98-108); Estimated Creatinine Clearance 32.46 ml/min (50-250); Globulin 3.6 g/dL (2.2-4.2); Glucose 116 mg/dL (70-99); Potassium 5.0 mmol/L (3.3-5.1)
[2025-03-04 22:00] VITALS: BP 120/64; PULSE 86; RESP 20; TEMP 36.8; O2SAT 94
[2025-03-04 23:10] VITALS: BP 135/80; PULSE 81; RESP 16; TEMP 36.7; O2SAT 95
[2025-03-05 00:07] LABS: Reflex Lactate? Y
== END 2025-03-04 23:25 | disposition home or self-care (01) ==
PROVIDERS: Emergency Provider Emergency Medicine; PCP Family Medicine; Visit Provider Emergency Medicine
DX: N39.0 Urinary tract infection, site not specified (principal); I50.9 Heart failure, unspecified; I13.0 Hypertensive heart and chronic kidney disease with heart failure and stage 1 through stage 4 chronic kidney disease, or unspecified chronic kidney disease; J44.9 Chronic obstructive pulmonary disease, unspecified; E11.42 Type 2 diabetes mellitus with diabetic polyneuropathy; E11.22 Type 2 diabetes mellitus with diabetic chronic kidney disease; E11.51 Type 2 diabetes mellitus with diabetic peripheral angiopathy without gangrene; N18.30 Chronic kidney disease, stage 3 unspecified; N31.9 Neuromuscular dysfunction of bladder, unspecified; Z87.891 Personal history of nicotine dependence; E78.5 Hyperlipidemia, unspecified; I25.10 Atherosclerotic heart disease of native coronary artery without angina pectoris; I73.9 Peripheral vascular disease, unspecified; R10.9 Unspecified abdominal pain; K21.9 Gastro-esophageal reflux disease without esophagitis
CPT/HCPCS: 74177; 80053; 81001; 83605; 85025; 85610; 85730; 87040; 87077; 87086; 87088; 87186; 93005; 96365; 96366; 99283; Q9967; A4216; J0744

== ENCOUNTER → 2025-03-07 | Outpatient (CLI) | payer MEDICARE, SELFPAY ==
--- NOTE | 2025-03-07 18:04 | STRESSREP_ITS ---
Stress Test Report Pharmacologic myocardial perfusion stress test. 80-year-old lady with a history of elevated troponins Resting EKG demonstrates sinus tachycardia with a rate of 150 bpm. Resting blood pressure is 142/70 mmHg. 0.4 mg of regadenoson was infused per usual protocol followed by rapid intravenous saline flush injection. Continuous EKG monitoring was performed. The maximum heart rate was 122 bpm which was 87% of max impacted heart rate the maximum workload was 1 metabolic equivalent. At rest there were no ST or T wave changes noted to suggest ischemia and at peak infusion nonspecific ST changes were noted which did not meet the criteria for ischemia. No clinical angina is noted. The final blood pressure was 120/58 mmHg. Myocardial perfusion protocol. 11.8 mCi of technetium 99m sestamibi was injected at rest. 0.4 mg of regadenoson was infused per usual protocol. At peak infusion 33 point mCi of technetium 99m sestamibi was injected stress images were obtained stress and rest images were reconstructed and compared in the short axis vertical long and horizontal long axis. Gated images were also obtained. Perfusion SPECT analysis: Review of the stress images demonstrate normal uptake of tracer noted in all areas of the myocardium. There is however a medium size defect noted in the mid inferior wall extending to the apex as well as an apical defect. 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 No reversibility is noted suggest isc hemia. Gated SPECT analysis: The gated ejection fraction is 33%. Conclusion: Abnormal pharmacologic myocardial perfusion stress test. 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 Reduced ejection fraction.
== END | disposition home or self-care (01) ==
LOC: CVS 07:03
PROVIDERS: PCP Family Medicine; Referring Provider Nurse Practitioner Gerontology; Visit Provider Nurse Practitioner Gerontology
DX: I25.10 Atherosclerotic heart disease of native coronary artery without angina pectoris (principal); R06.00 Dyspnea, unspecified; R79.89 Other specified abnormal findings of blood chemistry
CPT/HCPCS: 78452; 93017; A9500; A4216; J2785

== ENCOUNTER 2025-03-21 13:22 | Inpatient (IN) | payer MEDICARE, SELFPAY ==
[2025-03-21 13:23] VITALS: BP 103/52; PULSE 97; RESP 18; TEMP 36.4; O2SAT 98
[2025-03-21 13:31] VITALS: BMI 27.6
[2025-03-21 15:15] LABS: Mucous, Urine 0 SEEN /hpf (<or=2+)
[2025-03-21 15:27] LABS: Color, Urine Yellow (Yellow); Glucose, Dipstick 1000 mg/dl (Normal); Ketone-Dipstick Negative (Negative); Leukocyte Esterase-Dipstick 500 /ul (Negative); Nitrite-Dipstick Negative (Negative); Occult Blood-Urine 50 /ul (Negative); Protein-Dipstick 30 mg/dl (Negative); Specific Gravity, Urine 1.010 (1.002-1.030); Urine Bilirubin Dipstick Negative (Negative)
[2025-03-21 16:26] LABS: Squamous Epithelial Cells - UA 0-5 SEEN /hpf (5-10)
[2025-03-21 16:30] LABS: Yeast-Urine 1+ /hpf (None Seen)
[2025-03-21 16:31] LABS: Red Blood Cells-Urine 0-5 SEEN /hpf (0-5)
--- NOTE | 2025-03-21 16:35 | ED.VIS.BACK ---
HPI <Dr. Ethan Suarez, DO - Last Filed: 03/23/25 22:12> History of Present Illness Chief Complaint: Back Informant: patient Narrative Narrative: Intermittent right sided back spasms for last couple weeks. Symptoms started 2 days after patient in the ED states had what magi describes as an enema due to constipation. She had multiple bowel movements couple days then pain started. She since then has been having normal bowel movements daily. No falls. No pain down the legs. No loss of bowel or bladder control. She does self cath for urine. Denies fever chills or sweats. Denies nausea or vomiting. She ambulates with a walker. Currently lives at home with her spouse. She does wear chronic oxygenation. States she was hospitalized prior for viral syndrome requiring oxygen. Using Tylenol last dose was 5 hours prior to arrival. Also reports soreness in her bilateral region due to prolonged laying down at skilled facility. [facility] <Dr. Ethan Suarez, DO - Last Filed: 03/23/25 22:12> [facility] Medical History Former smoker On home oxygen therapy Osteoporosis History of diabetes mellitus COPD exacerbation Hypoxia Elevated troponin Acute dyspnea COPD with exacerbation Anemia History of COPD Elevated brain natriuretic peptide (BNP) level Elevated troponin Acute hypoxemic respiratory failure Obesity (BMI 30.0-34.9) Elevated troponin Lactic acidosis Poor venous access Diabetic polyneuropathy Hypomagnesemia Debility Fracture of hip, left, closed Coronary artery disease Weakness Gastroenteritis Paronychia of left index finger Abscess Vaginal cyst Anxiety Depression Irregular heart beat Multiple thyroid nodules Postmenopausal bleeding Foraminal stenosis of lumbar region Lumbar spinal stenosis Diabetic retinopathy Colon polyp GERD (gastroesophageal reflux disease) Thyroid goiter Hyperlipidemia Hypokalemia Microcytic anemia Neurogenic bladder Hypophosphatemia Hypercalcemia Former smoker UTI (urinary tract infection) Iron deficiency anemia Aortic stenosis Hyponatremia Urine retention Chronic renal failure, stage 3 (moderate) Cellulitis and abscess of finger, unspecified Retinopathy Peripheral artery disease Leg weakness, bilateral GERD (gastroesophageal reflux disease) Chronic idiopathic constipation COPD (chronic obstructive pulmonary disease) Polypharmacy Hypertension Carpal tunnel syndrome of right wrist Strain of right rotator cuff capsule Rhinitis Urinary retention with incomplete bladder emptying Vitamin D deficiency Asthma Pruritus Goiter, nontoxic, multinodular Anemia Diabetes COPD (chronic obstructive pulmonary disease) History of constipation Hx of venous thrombosis and embolism History of malignant neoplasm of breast Hypertension Type 2 diabetes mellitus Asthma Home Medications ?Medication ?Instructions ?Recorded ?Last Taken ?Type aspirin 81 mg chewable tablet 81 mg PO DAILY HEART HEALTH 01/21/16 01/15/25 History magnesium oxide 400 mg (241.3 mg 400 mg PO BID SUPPLEMENT 08/16/18 01/15/25 History magnesium) tablet metoprolol tartrate 25 mg tablet 25 mg PO BID BLOOD PRESSURE 08/16/18 01/15/25 History pantoprazole 40 mg tablet,delayed 40 mg PO DAILY ACID REFLUX 12/02/19 01/15/25 History release empagliflozin 10 mg tablet 10 mg PO DAILY DIABETES 10/18/20 01/15/25 History (Jardiance) sitagliptin phosphate 50 mg tablet 50 mg PO DAILY DIABETES 10/18/20 01/15/25 History (Januvia) multivitamin 1 tab PO DAILY VITAMIN 12/06/21 01/15/25 History pravastatin 20 mg tablet 20 mg PO DAILY CHOLESTEROL 12/06/21 01/15/25 History ascorbic acid (vitamin C) 250 mg 250 mg PO DAILY SUPPLEMENT 08/13/23 01/15/25 History tablet (Vitamin C) roflumilast 500 mcg tablet 500 mcg PO DAILY COPD 08/13/23 01/15/25 History insulin lispro 100 unit/mL 10 unit subcut TIDAC short acting 12/30/23 01/15/25 History subcutaneous pen (Humalog KwikPen insulin (U-100) Insulin) budesonide 160 mcg-glycopyr 9 2 inh inhalation BID breathing 01/07/25 01/15/25 History mcg-formot 4.8 mcg/actuation HFA inhaler (Breztri Aerosphere) diltiazem HCl 180 mg 180 mg PO DAILY heart 01/07/25 01/15/25 History capsule,extended release 24 hr, controlled insulin glargine 100 unit/mL (3 20 unit subcut BID diabetes 01/07/25 01/15/25 History mL) subcutaneous pen (Lantus Solostar U-100 Insulin) ipratropium bromide 21 mcg (0.03 1 - 2 spray intranasal Q6H PRN 01/07/25 Unknown History %) nasal spray allergy symptoms lancets 28 gauge (TRUEplus Lancets) 01/07/25 Unknown History acetaminophen 500 mg tablet 1,000 mg PO Q6H PRN Pain Score 1-3 01/15/25 Unknown History azelastine 137 mcg (0.1 %) nasal 1 - 2 spray intranasal BID nasal 01/15/25 01/15/25 History spray spray mecobalamin (vitamin B12) 1,000 1,000 mcg PO DAILY health 01/15/25 01/15/25 History mcg chewable tablet (B12 Active) maintenance menthol 0.44 %-zinc oxide 20.6 % 1 applic topical 4X/DAY PRN skin 01/15/25 Unknown History topical ointment (CalaSoothe) irritation netarsudil 0.02 %-latanoprost 1 drp EACH EYE DAILY eye drops 01/15/25 01/15/25 History 0.005 % eye drops (Rocklatan) psyllium husk 0.4 gram capsule 0.4 g PO DAILY constipation 01/15/25 01/15/25 History (Daily Fiber) tirzepatide 5 mg/0.5 mL 5 mg subcut QWEEK diabetes 01/15/25 Unknown History subcutaneous pen injector (Prabhu) potassium chloride 20 mEq 20 meq PO BID supplement 02/04/25 Unknown History tablet,extended release (K-Tab) furosemide 20 mg tablet (Lasix) 60 mg (3 x 20 mg) PO BID water 02/06/25 Unknown Rx pill #180 tabs ipratropium 0.5 mg-albuterol 3 mg 3 ml inhalation Q6H.RT sob #120 02/06/25 Unknown Rx (2.5 mg base)/3 mL nebulization amps soln sacubitril 24 mg-valsartan 26 mg 1 tab PO BID chf #60 tabs 02/07/25 Unknown Rx tablet (Entresto) albuterol sulfate 90 mcg/actuation 2 puff inhalation Q6H PRN 02/09/25 Unknown History aerosol inhaler shortness of breath or wheezing cetirizine 10 mg tablet 10 mg PO DAILY allergy 02/09/25 Unknown History hydroxyzine HCl 25 mg tablet 12.5 mg PO QHS allergies 02/09/25 Unknown History gabapentin 100 mg capsule 100 mg PO QHS NERVE PAIN 3 days 02/17/25 Unknown Rx #3 caps guaifenesin 600 mg tablet, 600 mg PO BID cough #0 tabs 02/17/25 Unknown Rx extended release 12 hr (Mucinex) diazepam 2 mg tablet 2 mg PO BID PRN muscle spasm #10 03/21/25 Unknown Rx TABLETS nitrofurantoin 100 mg PO Q12 #14 CAPSULES 03/21/25 Unknown Rx monohydrate/macrocrystals 100 mg capsule Allergy/AdvReac Type Severity Reaction Status Date / Time adhesive tape (tape) Allergy NEEDS Verified 03/21/25 13:26 FOLLOW-UP cephalexin monohydrate (From Allergy Rash Verified 03/21/25 13:26 Keflex) clopidogrel bisulfate (From Allergy Other Verified 03/21/25 13:26 Plavix) oxycodone AdvReac Severe made me Verified 03/23/25 18:38 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 amoxicillin AdvReac YEAST Verified 03/21/25 13:26 INFECTION Family History Daughter Breast cancer Father Hypertension Sister Cancer Kidney disease Mother Pancreatic cancer Surgical History History of left hip hemiarthroplasty S/P fine needle aspiration (~10/2020) H/O dilation and curettage (~07/10/20) History of Achilles tendon repair Retinopathy History of lumpectomy of left breast Social History household members: spouse Smoking Status: Former smoker alcohol intake: never substance use type: does not use caffeine: Yes what type of physical activity do you participate in: none seatbelt use: always do you feel safe at home: Yes additional social history: [employer]- retired ROS <Dr. Ethan Suarez, DO - Last Filed: 03/23/25 22:12> ROS ED Constitutional Constitutional ED: Denies fever(s) Cardiovascular Cardiovascular: Denies chest pain Respiratory/Chest Respiratory/Chest: Denies cough Gastrointestinal Gastrointestinal: Denies diarrhea or vomiting Musculoskeletal Musculoskeletal: Reports back pain Integumentary Denies rash or wounds Neurologic Neurologic: Denies weakness EXAM <Dr. Ethan Suarez, - Last Filed: 03/23/25 22:12> Physical Exam Const Vital Signs: 03/21/25 13:23 03/21/25 17:22 03/21/25 21:00 Temperature 97.6 F L Temperature Source Oral Pulse Rate 97 78 86 Respiratory Rate 18 16 19 H Blood Pressure 103/52 L 134/78 H 136/81 H Blood Pressure Mean 69 96 99 Pulse Ox 98 99 94 Oxygen Delivery Method Nasal Cannula Room Air Nasal Cannula Oxygen Flow Rate (L/min) 2 2 03/21/25 22:28 Temperature 98.4 F Temperature Source Pulse Rate 86 Respiratory Rate 19 H Blood Pressure 136/81 H Blood Pressure Mean 99 Pulse Ox 94 Oxygen Delivery Method Oxygen Flow Rate (L/min) Positive well nourished and well developed Constitutional Narrative: Chronic nasal cannula no respiratory distress General Appearance ED: well developed and NAD HEENT Reports moist mucous membranes normocephalic and atraumatic Eyes General Eye ED: Yes normal appearance of both eyes Neck full ROM Chest Wall Chest: Negative for tenderness Resp normal respiratory effort and normal air movement Effort and Inspection: symmetric chest movement; Negative for respiratory distress Cardio regular rate, regular rhythm and no murmurs Peripheral Pulses: pulses 2+ throughout GI normal to inspection, nondistended, normoactive bowel sounds and non-tender Palpation: Negative for guarding or rebound tenderness present Back/Spine Back/Spine Narrative: Reproducible lateral right lumbar tenderness with palpation. No midline tenderness. Straight leg test negative bilaterally. 1+ patellar reflex bilaterally. Extremity normal to inspection General Extremety ED: Negative for edema or tenderness General Extremity: Negative for edema Neuro oriented x3 and no sensory deficits noted Sensorium / Orientation: awake and alert Skin no rashes or lesions noted and no wounds <Dr. Noé Currie, DO - Last Filed: 03/21/25 23:01> Physical Exam Const Vital Signs: 03/21/25 13:23 03/21/25 17:22 03/21/25 21:00 Temperature 97.6 F L Temperature Source Oral Pulse Rate 97 78 86 Respiratory Rate 18 16 19 H Blood Pressure 103/52 L 134/78 H 136/81 H Blood Pressure Mean 69 96 99 Pulse Ox 98 99 94 Oxygen Delivery Method Nasal Cannula Room Air Nasal Cannula Oxygen Flow Rate (L/min) 2 2 03/21/25 22:28 Temperature 98.4 F Temperature Source Pulse Rate 86 Respiratory Rate 19 H Blood Pressure 136/81 H Blood Pressure Mean 99 Pulse Ox 94 Oxygen Delivery Method Oxygen Flow Rate (L/min) MDM <Dr. Ethan Suarez, DO - Last Filed: 03/23/25 22:12> MDM MDM Narrative Medical decision making narrative: Interventions / MDM: Differential diagnosis: Back spasms, UTI Diagnosis considered but do not suspect: No cauda equina symptoms. No radicular symptoms. My EKG interpretation: N/A Imaging independently reviewed and interpreted by myself: N/A External documents reviewed: Urine culture 03/04/2025 Enterococcus faecalis pansensitive. Test considered but not ordered:N/A ED course: Patient with back spasms, no radicular symptoms. She took Tylenol 5 hours ago. Order for low-dose Valium to help with symptoms, will cath for urine 1600: Clinically is feeling better. Urine showed signs of infection urine culture 2 weeks ago had Enterococcus faecalis pansensitive. With her allergies she will be started on Macrobid. Urine culture sent. Additional Tylenol ordered. Will have nursing ambulate with her walker. If able to ambulate can be discharged home with continued antibiotics. Re-evaluation: stable Disposition discussed with patient/family/significant other: Patient Case discussed with consulting clinician: N/A This note was generated with [employer] dictation software. It may contain incorrect words, spelling, and punctuation that were not noted in checking the note before signing. Lab Data Attestation: I reviewed the patient's lab results. Labs: Laboratory Results - last 24 hr 03/21/25 03/21/25 03/21/25 15:05 17:55 19:12 WBC 8.4 RBC 3.59 L Hgb 9.7 L Hct 31.3 L MCV 87.2 MCH 27.0 MCHC 31.0 L RDW Std Deviation 52.5 H RDW Coeff of [place] 16.4 H Plt Count 304 MPV 11.1 Immature Gran % (Auto) 0.500 Neut % (Auto) 62.3 Lymph % (Auto) 27.1 [place] % (Auto) 8.6 Eos % (Auto) 0.8 Baso % (Auto) 0.7 Absolute Neuts (auto) 5.2 Absolute Lymphs (auto) 2.26 Nucleated RBC % 0 Sodium 137 Potassium 4.4 Chloride 98 Carbon Dioxide 26.4 Anion Gap 13 BUN 18 Creatinine 1.00 Estim Creat Clear Calc 41.62 L Est GFR (MDRD) Non-Af 57 L BUN/Creatinine Ratio 18.2 Glucose 128 H Calcium 10.5 Urine Color Yellow Urine Clarity Sl. Cloudy Urine pH 7.0 Ur Specific [place] 1.010 Urine Protein 30 H Urine Glucose (UA) 1000 H Urine Ketones Negative Urine Occult Blood 50 H Urine Nitrite Negative Urine Bilirubin Negative Urine Urobilinogen Normal Ur Leukocyte Esterase 500 H Urine RBC 0-5 SEEN Urine WBC >100 SEEN Ur Squamous Epith Cells 0-5 SEEN Urine Bacteria 1+ Urine Mucus 0 SEEN Urine Yeast 1+ POC Glucose 114 H Radiography Diagnostic Testing: Clinical Impression(s) from Imaging Studies Lumbar Spine CT 03/21/25 18:00 IMPRESSION: No acute fracture or malalignment. Multilevel spondylotic changes as described, similar to prior exam, with moderate-advanced spinal canal and bilateral neural foraminal narrowing at L3-4, L4-5, and L5-S1. Additional ancillary findings as noted, discussed separately in the abdominal CT report. Reading Location: [facility] Abdomen/Pelvis CT 03/21/25 18:02 IMPRESSION: 1. Similar patchy airspace consolidation in the bilateral lung bases, suggesting aspiration. 2. Moderate colonic stool burden with persistent mild distention and wall thickening of the rectal vault, suggesting chronic constipation and stercoral proctitis, although less pronounced from prior exam. 3. Multiple additional non-acute ancillary findings, as described above. Reading Location: [facility] <Dr. Noé Currie, DO - Last Filed: 03/21/25 23:01> MDM MDM Narrative Medical decision making narrative: Interventions / MDM: Differential diagnosis: Back spasms, UTI Diagnosis considered but do not suspect: No cauda equina symptoms. No radicular symptoms. My EKG interpretation: N/A Imaging independently reviewed and interpreted by myself: N/A External documents reviewed: Urine culture 03/04/2025 Enterococcus faecalis pansensitive. Test considered but not ordered:N/A ED course: Patient with back spasms, no radicular symptoms. She took Tylenol 5 hours ago. Order for low-dose Valium to help with symptoms, will cath for urine 1600: Clinically is feeling better. Urine showed signs of infection urine culture 2 weeks ago had Enterococcus faecalis pansensitive. With her allergies she will be started on Macrobid. Urine culture sent. Additional Tylenol ordered. Will have nursing ambulate with her walker. If able to ambulate can be discharged home with continued antibiotics. Re-evaluation: stable Disposition discussed with patient/family/significant other: Patient Case discussed with consulting clinician: N/A This note was generated with [employer] dictation software. It may contain incorrect words, spelling, and punctuation that were not noted in checking the note before signing. Patient was turned over to me by Dr. SUAREZ @ 1600 Brief history: As above Physical exam: TTP over right side of the abdomen, right CVA tenderness. No pulsatile abdominal masses. Symmetric pulses in bilateral lower extremities MDM/plan: Given patient's inability to walk, abdominal pain/flank pain/back pain obtain additional images and labs to further assess the patient's presentation Labs and images reviewed (if obtained): CBC with no leukocytosis, noted baseline anemia, no thrombocytopenia BMP without evidence of significant electrolyte abnormalities, no anion gap, no acute kidney injury. UA consistent with UTI CT scan of the abdomen and pelvis shows no acute intra-abdominal surgical pathology CT scan lumbar spine shows no evidence of obvious bony abnormality such as fracture or dislocation Upon reevaluation the patient's vital remained stable. Ambulation was attempted after morphine and Toradol however patient cannot ambulate satisfactorily. It was decided she was not safe to go home. Given UTI diffuse weakness and admitted ambulations admitted to [facility] under hospitalist. Discussed with Dr. Foster. Lab Data Labs: Laboratory Results - last 24 hr 03/21/25 03/21/25 03/21/25 15:05 17:55 19:12 WBC 8.4 RBC 3.59 L Hgb 9.7 L Hct 31.3 L MCV 87.2 MCH 27.0 MCHC 31.0 L RDW Std Deviation 52.5 H RDW Coeff of Vijay 16.4 H Plt Count 304 MPV 11.1 Immature Gran % (Auto) 0.500 Neut % (Auto) 62.3 Lymph % (Auto) 27.1 [place] % (Auto) 8.6 Eos % (Auto) 0.8 Baso % (Auto) 0.7 Absolute Neuts (auto) 5.2 Absolute Lymphs (auto) 2.26 Nucleated RBC % 0 Sodium 137 Potassium 4.4 Chloride 98 Carbon Dioxide 26.4 Anion Gap 13 BUN 18 Creatinine 1.00 Estim Creat Clear Calc 41.62 L Est GFR (MDRD) Non-Af 57 L BUN/Creatinine Ratio 18.2 Glucose 128 H Calcium 10.5 Urine Color Yellow Urine Clarity Sl. Cloudy Urine pH 7.0 Ur Specific [place] 1.010 Urine Protein 30 H Urine Glucose (UA) 1000 H Urine Ketones Negative Urine Occult Blood 50 H Urine Nitrite Negative Urine Bilirubin Negative Urine Urobilinogen Normal Ur Leukocyte Esterase 500 H Urine RBC 0-5 SEEN Urine WBC >100 SEEN Ur Squamous Epith Cells 0-5 SEEN Urine Bacteria 1+ Urine Mucus 0 SEEN Urine Yeast 1+ POC Glucose 114 H Radiography Diagnostic Testing: Clinical Impression(s) from Imaging Studies Lumbar Spine CT 03/21/25 18:00 IMPRESSION: No acute fracture or malalignment. Multilevel spondylotic changes as described, similar to prior exam, with moderate-advanced spinal canal and bilateral neural foraminal narrowing at L3-4, L4-5, and L5-S1. Additional ancillary findings as noted, discussed separately in the abdominal CT report. Reading Location: [facility] Abdomen/Pelvis CT 03/21/25 18:02 IMPRESSION: 1. Similar patchy airspace consolidation in the bilateral lung bases, suggesting aspiration. 2. Moderate colonic stool burden with persistent mild distention and wall thickening of the rectal vault, suggesting chronic constipation and stercoral proctitis, although less pronounced from prior exam. 3. Multiple additional non-acute ancillary findings, as described above. Reading Location: [facility] Discharge Plan Dx/Rx/DC Orders Clinical Impression: Back muscle spasm, Acute UTI Disposition Disposition: Acute Care Hospital [facility] Discharge Date/Time: 03/22/25 00:22
[2025-03-21 17:22] VITALS: BP 134/78; PULSE 78; RESP 16; O2SAT 99
--- NOTE | 2025-03-21 18:00 | CT_ITS ---
PROCEDURE: SPINE LUMBAR WITHOUT CONTRAST 03/21/2025 REASON FOR EXAM: BACK PAIN TECHNIQUE: SPINE LUMBAR WITHOUT CONTRAST Coronal and Sagittal reconstruction series were provided. One or more dose reduction techniques were used (e.g., Automated exposure control, adjustment of the mA and/or kV according to patient size, use of iterative reconstruction technique COMPARISON: Lumbar spine CT 10/11/2019. RADIATION DOSE SUMMARY: DLP: 1251.76 mGycm FINDINGS: No acute fracture or subluxation. Vertebral bodies are preserved in height. Alignment is maintained, although there is straightening of the lumbar lordosis. Moderate-advanced multilevel spondylotic changes similar to prior exam, with varying degrees of disc space narrowing with vacuum disc phenomena, endplate sclerosis, anterior osteophytosis, and hypertrophic facet arthropathy. Dorsal disc bulging at multiple levels most pronounced at L3-4, L4-5 and L5-S1, with moderate-advanced spinal canal narrowing, and bilateral neural foraminal narrowing at these levels. Partially imaged right sacral implanted stimulator device with lead traversing the right S3 foramen. Left hip arthroplasty metallic hardware. Mild undulating infrarenal abdominal aortic aneurysms, with advanced atherosclerotic disease. Cholelithiasis. Multiple degenerative calcified uterine fibroids. Distention of the rectal vault with stool with mild circumferential wall thickening suggestive of stercoral proctitis. Patchy consolidation in the imaged bilateral lung bases may be related to aspiration. CT/Spine Lumbar without Contrast IMPRESSION: No acute fracture or malalignment. Multilevel spondylotic changes as described , similar to prior exam, with moderate-advanced spinal canal and bilateral neural foraminal narrowing at L3-4, L4-5, and L5-S1. Additional ancillary findings as noted, discussed separately in the abdominal CT report. Reading Location: [id number]
--- NOTE | 2025-03-21 18:02 | CT_ITS ---
PROCEDURE: ABDOMEN/PELVIS W IV CONT ONLY 03/21/2025 REASON FOR EXAM: RIGHT SIDED ABDOMINAL PAIN TECHNIQUE: ABDOMEN/PELVIS W IV CONT ONLY Coronal and Sagittal reconstruction series were provided. One or more dose reduction techniques were used (e.g., Automated exposure control, adjustment of the mA and/or kV according to patient size, use of iterative reconstruction technique. RADIATION DOSE SUMMARY: DLP: 1251.76 mGycm COMPARISON: Abdominal CT 03/04/2025 FINDINGS: Lung bases: Similar appearance of patchy airspace consolidation in the bilateral posteromedial lung bases, more pronounced on the left, which appears more than typical dependent atelectasis and may reflect a component of chronic aspiration pneumonia/pneumonitis. Patchy ground-glass opacity is also seen in the right middle lobe not seen on the previous study. Linear/discoid atelectasis in the left lingular base. Heart base is mildly enlarged with moderate aortic root and coronary artery calcifications. Liver: No significant abnormality. No suspicious lesion. Few tiny probable benign cysts. Gallbladder: Cholelithiasis without findings of acute cholecystitis. No biliary ductal dilatation. Spleen: Normal in size. Unchanged circumscribed hypodense lesion measuring up to 30 mm most likely reflecting a benign cyst or hemangioma. Pancreas: Unremarkable. Adrenals: Unremarkable. Kidneys: Symmetric enhancement. Multiple tiny nonobstructive stones versus vascular calcifications. No hydroureteronephrosis on either side. Few bilateral small simple renal cysts. Bladder: Smoothly distended. Reproductive Organs: Lobulated uterus with multiple calcified degenerative uterine fibroids. Grossly unremarkable appearance of the adnexae. Bowel: Stomach and small bowel are unremarkable. No evidence of obstruction. Normal appendix identified in the right lower quadrant. Moderate stool burden throughout the colon, particularly with a fecal load mildly distending the rectal vault with mild wall thickening, suggestive of chronic constipation with stercoral proctitis, although this is less pronounced compared with the prior exam. Lymph nodes: No suspicious lymph node enlargement. Vasculature: Small undulating aneurysmal dilatations of the infrarenal abdominal aorta, stable. Advanced atherosclerotic disease involving the major branch vessels. Peritoneum / Retroperitoneum: No ascites or free air. Musculoskeletal: Tiny fat containing umbilical hernia. Right gluteal implanted sacral stimulator device traversing the right S3 sacral foramen. Left hip arthroplasty with chronic osseous deformity of the proximal left femur and acetabulum. Moderate-advanced multilevel degenerative changes of the visualized spine. Generalized qualitative osteopenia. CT/Abdomen/Pelvis W IV Cont ONLY IMPRESSION: 1. Similar patchy airspace consolidation in the bilateral lung bases, suggestin g aspiration. 2. Moderate colonic stool burden with persistent mild distention and wall thick ening of the rectal vault, suggesting chronic constipation and stercoral proctitis, although less pronounced from prior exam. 3. Multiple additional non-acute ancillary findings, as described above. Reading Location: [id number]
[2025-03-21 18:58] LABS: Hematocrit 31.3 % (37-47); Hemoglobin 9.7 g/dL (12.0-15.0); Immature Granulocytes Count 0.040 X10^3/uL (0.0-0.0); Mean Corp Hgb Conc 31.0 g/dL (32-36); Mean Corpuscular Volume 87.2 fL (81-99); Mean Platelet Vol. 11.1 fl (6.2-12.0); NRBC Flagged by Analyzer 0 % (0-5); Platelet Count 304 K/mm3 (150-450); RBC Distribution Width CV 16.4 % (11.6-14.6); RBC Distribution Width SD 52.5 fl (35.1-43.9); Red Blood Count 3.59 M/mm3 (4.2-5.4); White Blood Count 8.4 K/mm3 (4.4-11.0)
[2025-03-21 19:18] LABS: Anion Gap 13 (5-15); BUN 18 mg/dL (4-19); BUN/Creat Ratio 18.2 RATIO (10-20); Calcium,Total 10.5 mg/dL (7.6-11.0); Carbon Dioxide 26.4 mmol/L (21.0-32.0); Chloride 98 mmol/L (98-108); Estimated Creatinine Clearance 41.62 ml/min (50-250); Glucose 128 mg/dL (70-99); Potassium 4.4 mmol/L (3.3-5.1)
[2025-03-21 21:00] VITALS: BP 136/81; PULSE 86; RESP 19; O2SAT 94
[2025-03-21 22:28] VITALS: BP 136/81; PULSE 86; RESP 19; TEMP 36.9; O2SAT 94
--- NOTE | 2025-03-21 22:48 | HP.PCM.HOS_ITS ---
HPI - General General Date of Admission: 03/21/25 Date of Service: 03/21/25 Chief Complaint: Intractable back pain, spasms. HPI Narrative The patient is an 80 y/o F w/ PMHx: Chronic neurogenic bladder with self- catheterization chronically, COPD/Asthma w/ Chronic Hypoxic Respiratory Failure, Former tobacco use, Chronic normocytic anemia/iron deficiency anemia, CKD stage III unclear subtype per GFR trending, Anxiety and Depression, Diabetes mellitus type II with chronic neuropathy, Chronic idiopathic constipation, PAD, GERD, Hx VTE (DVT, PE), Hx L sided breast CA unclear type s/p lumpectomy considered in remission who presents to the [facility] ED on 03/21/2025 with history of right-sided back spasms persistent over the last couple weeks with bowel movements daily with underlying significant chronic constipation history with ongoing self-catheterization secondary to neurogenic bladder currently living at home with her spouse with recent hospitalization for viral syndrome prompting eventual ED evaluation to be cautious. Patient notes her back discomfort and muscle spasms were initially tentative 10 in severity and dull aching as well as sharp stabbing however they have significantly improved following ED interventions, currently rated 2-3 out of 10 in severity however she was unable to ambulate upon attempts in the ED. Workup in the ED included T97.6, heart rate 97, BP 103/52, respiratory rate 18, 98% on 2 L initially reported however then reported as 99% on room air, most recent repeat vitals T98.4, heart rate 86, BP 136/81, respiratory rate 19, 94% on 2 L nasal cannula, CBC with WBC 8.4, hemoglobin 9.7, MCV 87.2, platelets 304 without marked shift, BMP with BUN/creatinine 18/1.0, GFR 57, glucose 128, urinalysis with cloudy appearing urine, specific roughly 1.010, protein 30, glucose of thousand, negative ketones, 50 occult blood, leukocyte Estrace 500 with urine RBCs greater than 101+ urine bacteria, urine culture pending per ED, plain film of the lumbar spine with no acute fracture or malalignment, multilevel spondylitic changes similar to previous with moderate divan spinal canal and bilateral neural foraminal narrowing at L3-4, L4-5, L5-S1, CT abdomen and pelvis with IV contrast only with similar patchy airspace consolidation in bilateral lung bases concerning for possible aspiration component, moderate colonic stool burden with persistent mild distention and wall thickening of the rectal vault suggestive of chronic constipation. In the ED patient ministered Tylenol 1000 mg p.o. x 1, Valium 2 mg p.o. x 1, Toradol 15 mg IV x 1, morphine 2 mg IV x 1, nitrofurantoin 100 mg p.o. x 1. [facility] Medical History Former smoker On home oxygen therapy Osteoporosis History of diabetes mellitus COPD exacerbation Hypoxia Elevated troponin Acute dyspnea COPD with exacerbation Anemia History of COPD Elevated brain natriuretic peptide (BNP) level Elevated troponin Acute hypoxemic respiratory failure Obesity (BMI 30.0-34.9) Elevated troponin Lactic acidosis Poor venous access Diabetic polyneuropathy Hypomagnesemia Debility Fracture of hip, left, closed Coronary artery disease Weakness Gastroenteritis Paronychia of left index finger Abscess Vaginal cyst Anxiety Depression Irregular heart beat Multiple thyroid nodules Postmenopausal bleeding Foraminal stenosis of lumbar region Lumbar spinal stenosis Diabetic retinopathy Colon polyp GERD (gastroesophageal reflux disease) Thyroid goiter Hyperlipidemia Hypokalemia Microcytic anemia Neurogenic bladder Hypophosphatemia Hypercalcemia Former smoker UTI (urinary tract infection) Iron deficiency anemia Aortic stenosis Hyponatremia Urine retention Chronic renal failure, stage 3 (moderate) Cellulitis and abscess of finger, unspecified Retinopathy Peripheral artery disease Leg weakness, bilateral GERD (gastroesophageal reflux disease) Chronic idiopathic constipation COPD (chronic obstructive pulmonary disease) Polypharmacy Hypertension Carpal tunnel syndrome of right wrist Strain of right rotator cuff capsule Rhinitis Urinary retention with incomplete bladder emptying Vitamin D deficiency Asthma Pruritus Goiter, nontoxic, multinodular Anemia Diabetes COPD (chronic obstructive pulmonary disease) History of constipation Hx of venous thrombosis and embolism History of malignant neoplasm of breast Hypertension Type 2 diabetes mellitus Asthma Home Medications ?Medication ?Instructions ?Recorded ?Last Taken ?Type aspirin 81 mg chewable tablet 81 mg PO DAILY HEART HEA LTH 01/21/16 01/15/25 History magnesium oxide 400 mg (241.3 mg 400 mg PO BID SUPPLEM ENT 08/16/18 01/15/25 History magnesium) tablet metoprolol tartrate 25 mg tablet 25 mg PO BID BLOOD AR ESSURE 08/16/18 01/15/25 History pantoprazole 40 mg tablet,delayed 40 mg PO DAILY ACID REFLUX 12/02/19 01/15/25 History release empagliflozin 10 mg tablet 10 mg PO DAILY DIABETES 01/15/25 History (Jardiance) sitagliptin phosphate 50 mg tablet 50 mg PO DAILY DIAB ETES 10/18/20 01/15/25 History (Januvia) multivitamin 1 tab PO DAILY VITAMIN 12/0601/15/25 History pravastatin 20 mg tablet 20 mg PO DAILY CHOLESTEROL 0 12/06/21 01/15/25 History ascorbic acid (vitamin C) 250 mg 250 mg PO DAILY SUPPL EMENT 08/13/23 01/15/25 History tablet (Vitamin C) roflumilast 500 mcg tablet 500 mcg PO DAILY COPD 08/1301/15/25 History insulin lispro 100 unit/mL 10 unit subcut TIDAC short acting 12/30/23 01/15/25 History subcutaneous pen (Humalog KwikPen insulin (U-100) Insulin) budesonide 160 mcg-glycopyr 9 2 inh inhalation BID franklyn athing 01/07/25 01/15/25 History mcg-formot 4.8 mcg/actuation HFA inhaler (Breztri Aerosphere) diltiazem HCl 180 mg 180 mg PO DAILY heart 01/15/25 History capsule,extended release 24 hr, controlled insulin glargine 100 unit/mL (3 20 unit subcut BID marco a betes 01/07/25 01/15/25 History mL) subcutaneous pen (Lantus Solostar U-100 Insulin) ipratropium bromide 21 mcg (0.03 1 - 2 spray intranasa l Q6H PRN 01/07/25 Unknown History %) nasal spray allergy symptoms lancets 28 gauge (TRUEplus Lancets) 01/07/25 Unknown History acetaminophen 500 mg tablet 1,000 mg PO Q6H PRN Pain S core 1-3 01/15/25 Unknown History azelastine 137 mcg (0.1 %) nasal 1 - 2 spray intranasa l BID nasal 01/15/25 01/15/25 History spray spray mecobalamin (vitamin B12) 1,000 1,000 mcg PO DAILY hea lth 01/15/25 01/15/25 History mcg chewable tablet (B12 Active) maintenance menthol 0.44 %-zinc oxide 20.6 % 1 applic topical 4X/D AY PRN skin 01/15/25 Unknown History topical ointment (CalaSoothe) irritation netarsudil 0.02 %-latanoprost 1 drp EACH EYE DAILY eye drops 01/15/25 01/15/25 History 0.005 % eye drops (Rocklatan) psyllium husk 0.4 gram capsule 0.4 g PO DAILY constipa tion 01/15/25 01/15/25 History (Daily Fiber) tirzepatide 5 mg/0.5 mL 5 mg subcut QWEEK diabetes 0 01/15/25 Unknown History subcutaneous pen injector (Mounjaro) potassium chloride 20 mEq 20 meq PO BID supplement 03/24 Unknown History tablet,extended release (K-Tab) furosemide 20 mg tablet (Lasix) 60 mg (3 x 20 mg) PO B ID #180 tabs 02/06/25 Unknown Rx ipratropium 0.5 mg-albuterol 3 mg 3 ml inhalation Q6H. RT #120 amps 02/06/25 Unknown Rx (2.5 mg base)/3 mL nebulization soln sacubitril 24 mg-valsartan 26 mg 1 tab PO BID #60 tabs 02/07/25 Unknown Rx tablet (Entresto) albuterol sulfate 90 mcg/actuation 2 puff inhalation Q 6H PRN 02/09/25 Unknown History aerosol inhaler shortness of breath or wheez ing cetirizine 10 mg tablet 10 mg PO DAILY 02/09/25 Unkn own History hydroxyzine HCl 25 mg tablet 12.5 mg PO QHS allergies 02/09/25 Unknown History gabapentin 100 mg capsule 100 mg PO QHS NERVE PAIN 3 days 02/17/25 Unknown Rx #3 caps guaifenesin 600 mg tablet, 600 mg PO BID #0 tabs 02/17 Unknown Rx extended release 12 hr (Mucinex) diazepam 2 mg tablet 2 mg PO BID PRN muscle spasm #10 03/21/25 Unknown Rx TABLETS nitrofurantoin 100 mg PO Q12 #14 CAPSULES 0 03/21/25 Unknown Rx monohydrate/macrocrystals 100 mg capsule Allergy/AdvReac Type Severity Reaction Status Date / Time adhesive tape (tape) Allergy NEEDS Verified 03/21/25 13:26 FOLLOW-UP cephalexin monohydrate (From Allergy Rash Verified 03/21/25 13:26 Keflex) clopidogrel bisulfate (From Allergy Other Verified 03/21/25 13:26 Plavix) amoxicillin AdvReac YEAST Verified 03/21/25 13:26 INFECTION Family History Daughter Breast cancer Father Hypertension Sister Cancer Kidney disease Mother Pancreatic cancer Surgical History History of left hip hemiarthroplasty S/P fine needle aspiration (~10/2020) H/O dilation and curettage (~07/10/20) History of Achilles tendon repair Retinopathy History of lumpectomy of left breast Social History household members: spouse Smoking Status: Former smoker alcohol intake: never substance use type: does not use caffeine: Yes what type of physical activity do you participate in: none seatbelt use: always do you feel safe at home: Yes additional social history: [employer]- retired ROS ROS Narrative Admission Review of Systems: CONSTITUTIONAL: No weight loss, fever, chills, + weakness or fatigue. HEENT: Eyes: No visual loss, blurred vision, double vision or yellow sclerae. Ears, Nose, Throat: No hearing loss, sneezing, congestion, runny nose or sore throat. SKIN: No rash or itching, lesions, wounds. CARDIOVASCULAR: No chest pain, chest pressure or chest discomfort, palpitations, edema, orthopnea, syncopal events. RESPIRATORY: No shortness of breath, cough or sputum, wheezing, hemoptysis. GASTROINTESTINAL: No anorexia, nausea, vomiting or diarrhea, abdominal pain, melena, BRBPR. GENITOURINARY: + Chronic urinary retention with self-catheterization, lower back discomfort. No specific recent dysuria, frequency, urgency or retention. NEUROLOGICAL: + Difficulty ambulating, general debility. No headache, dizziness, syncope, paralysis, ataxia, numbness or tingling in the extremities, focal weakness, change in bowel or bladder control, seizure. MUSCULOSKELETAL: + muscle, back pain, joint pain or stiffness. HEMATOLOGIC: + Chronic anemia, easy bleeding/bruising. LYMPHATICS: No enlarged nodes. No history of splenectomy. PSYCHIATRIC: + History of anxiety and depression. ENDOCRINOLOGIC: No reports of sweating, cold or heat intolerance. No polyuria or polydipsia. ALLERGIES: + History of asthma, allergic rhinitis. Vital Signs Vital Signs Vital Signs: 03/21/25 13:23 03/21/25 17:22 03/21/25 21:00 Temperature 97.6 F L Temperature Source Oral Pulse Rate 97 78 86 Respiratory Rate 18 16 19 H Blood Pressure 103/52 L 134/78 H 136/81 H Blood Pressure Mean 69 96 99 Pulse Ox 98 99 94 Oxygen Delivery Method Nasal Cannula Room Air Nasal Cannula Oxygen Flow Rate (L/min) 2 2 03/21/25 22:28 Temperature 98.4 F Temperature Source Pulse Rate 86 Respiratory Rate 19 H Blood Pressure 136/81 H Blood Pressure Mean 99 Pulse Ox 94 Oxygen Delivery Method Oxygen Flow Rate (L/min) Weight Weight: 156 lb 1.396 oz Body Mass Index (BMI) 27.6 Physical Exam Narrative Physical Examination: General: Awake, alert, oriented x 3 and cooperative, laying in the bed, notes her back discomfort is significantly improved since initial ED arrival. Skin: Normal color, normal turgor, no icterus, no cyanosis except occasional stage ecchymoses, mild lichenification bilateral lower extremities. HEENT: AT/NC, EOMI, PERRLA, mildly dry MM, no carotid bruits or JVD noted. Lungs: Diminished, greater bases, mildly increased respiratory rate but no distress, no appreciated rales, ronchi or wheezing. Heart: Regular rate and rhythm; no gallop, rub audible. Abdomen: Soft, NTTP aside from mild discomfort to the suprapubic region with palpation, mildly distended with tympany, mildly hyperactive BS, no appreciated HSM. Extremities: No cyanosis, no clubbing, mild ankle to proximal jimenez chronic edema, see skin. Neurological: Patient awake, alert, oriented as noted, cognitive function intact; pupils equally reactive to light and accommodation, cranial nerves grossly normal, moving all 4 extremities, no focal deficits, strength moderately to severely globally decreased, unable to ambulate because of back discomfort, primarily paraspinous discomfort, no discomfort to the spine palpation itself/no step-off. Psychiatric: Affect appears fatigued, notes back discomfort improved since initial ED arrival, no acute evidence of depressive or anxiety feelings but does have underlying history. Results Lab / Micro Data 03/21/25 17:55 03/21/25 17:55 Labs: Laboratory Results - last 24 hr 03/21/25 15:05: Urine Color Yellow, Urine Clarity Sl. Cloudy, Urine pH 7.0, Ur Specific [place] 1.010, Urine Protein 30 H, Urine Glucose (UA) 1000 H, Urine Ketones Negative, Urine Occult Blood 50 H, Urine Nitrite Negative, Urine Bilirubin Negative, Urine Urobilinogen Normal, Ur Leukocyte Esterase 500 H, Urine RBC 0-5 SEEN, Urine WBC >100 SEEN, Ur Squamous Epith Cells 0-5 SEEN, Urine Bacteria 1+, Urine Mucus 0 SEEN, Urine Yeast 1+ 03/21/25 17:55: WBC 8.4, RBC 3.59 L, Hgb 9.7 L, Hct 31.3 L, MCV 87.2, MCH 27.0, MCHC 31.0 L, RDW Std Deviation 52.5 H, RDW Coeff of Vijay 16.4 H, Plt Count 304, MPV 11.1, Immature Gran % (Auto) 0.500, Neut % (Auto) 62.3, Lymph % (Auto) 27.1, [place] % (Auto) 8.6, Eos % (Auto) 0.8, Baso % (Auto) 0.7, Absolute Neuts (auto) 5.2, Absolute Lymphs (auto) 2.26, Nucleated RBC % 0, Sodium 137, Potassium 4.4, Chloride 98, Carbon Dioxide 26.4, Anion Gap 13, BUN 18, Creatinine 1.00, Estim Creat Clear Calc 41.62 L, Est GFR (MDRD) Non-Af 57 L, BUN/Creatinine Ratio 18.2, Glucose 128 H, Calcium 10.5 03/21/25 19:12: POC Glucose 114 H Imaging Radiology Impression Lumbar Spine CT 03/21/25 18:00 IMPRESSION: No acute fracture or malalignment. Multilevel spondylotic changes as described, similar to prior exam, with moderate-advanced spinal canal and bilateral neural foraminal narrowing at L3-4, L4-5, and L5-S1. Additional ancillary findings as noted, discussed separately in the abdominal CT report. Reading Location: [id number] Abdomen/Pelvis CT 03/21/25 18:02 IMPRESSION: 1. Similar patchy airspace consolidation in the bilateral lung bases, suggesting aspiration. 2. Moderate colonic stool burden with persistent mild distention and wall thickening of the rectal vault, suggesting chronic constipation and stercoral proctitis, although less pronounced from prior exam. 3. Multiple additional non-acute ancillary findings, as described above. Reading Location: [id number] Assessment & Plan Assessment/Plan (1) Acute UTI: PLAN: Plan The patient is an 80 y/o F w/ PMHx: Chronic neurogenic bladder with self- catheterization chronically, COPD/Asthma w/ Chronic Hypoxic Respiratory Failure, Former tobacco use, Chronic normocytic anemia/iron deficiency anemia, CKD stage III unclear subtype per GFR trending, Anxiety and Depression, Diabetes mellitus type II with chronic neuropathy, Chronic idiopathic constipation, PAD, GERD, Hx VTE (DVT, PE), Hx L sided breast CA unclear type s/p lumpectomy considered in remission who presents to the [facility] ED on 03/21/2025 with history of right-sided back spasms persistent over the last couple weeks with bowel movements daily with underlying significant chronic constipation history with ongoing self-catheterization secondary to neurogenic bladder currently living at home with her spouse with recent hospitalization for viral syndrome prompting eventual ED evaluation to be cautious. #1. Acute Intractable Back Pain on chronic with significant debility, difficulty ambulating, adult failure to thrive complicated by #2 in addition to chronic idiopathic constipation: Will admit to MS, maintain on fall precautions, frequent positioning, will maintain on judicious short course of 5 doses of low- dose IV toradol, topical pain compound, will increase to 3 times daily low-dose gabapentin, low dose PRN tizanidine, medrol dose pack cautiously given #2 however given severity of discomfort at this point believe worth the risk, po/IV narcotic pain regimen, anti-emetics, bowel regimen with enema x 1 as well as daily MiraLAX with adjustment further as needed to maintain appropriate bowel regimen. Will consult PT and OT for evaluation as well as Case management for discharge planning. If not clinically improving may require further more aggressive imaging. #2. Acute Complicated Urinary Tract Infection related to self-catheterization with chronic neurogenic bladder: UA upon ED evaluation remarkable, pending UCx, most recent cultures notable for Enterococcus, will judiciously hydrate, monitor I/Os, will initiate based on previous cultures on IV Levaquin w/ transition as able pending sensitivities and speciation. Will continue home straight catheterization regimen. #3. Atypical patchy airspace consolidation bilateral posteromedial lung bases: CT scan with noted similar appearance to previous patchy airspace consolidation in the bilateral posterior medial lung bases more pronounced on the left more typical than what 1 would find with dependent atelectasis with possible chronic aspiration component, speech therapy consulted patient cautious and will maintain on aspiration precautions. #4. Chronic hypoxic respiratory failure with underlying COPD/asthm with allergic rhinitis a: Will continue home oxygen supplementation, will maintain on ATC DuoNeb therapy, as needed albuterol, encourage head of bed and I-S, continue home Roflumilast regimen, continue home cetirizine regimen. #5. Chronic normocytic anemia/iron deficiency anemia: Admission hemoglobin 9.7, MCV 87.2, baseline hemoglobin primarily 9-10 range although does vacillate, will continue to trend, clarifying iron supplementation given noted history as currently not listed. #6. PAD: Noted chart history, will continue patient aspirin, statin, hypertensive regimen, diabetic regimen as noted. #7. Chronic Kidney Disease Stage III, unclear subtype or GFR trending: Admission BUN/Cr 18/1.0, GFR 57, baseline renal function primarily 0.9-1.2, repeat BMP in AM. #8. Diabetes mellitus type II with chronic neuropathy: Hold oral home regimen, continue home insulin regimen, ADA diet, accu checks w/ ISS. As noted above will increase to 3 times daily low-dose gabapentin regimen. #9. History of breast cancer: Patient with history of previous left breast cancer, unclear type, unclear exact interventions aside from lumpectomy, considered in remission, encouraged continued follow-up outpatient as previously arranged. #10. Hypertension: Continue home regimen including metoprolol, Lasix, diltiazem, PRN hydralazine. #11. Hyperlipidemia: Will continue patient home statin therapy. #12. Anxiety and depression: Per current list on a regimen, clarified to be certain, encourage continued outpatient follow-up with PCP as previously arranged. #13. Former tobacco use: Encourage continued tobacco cessation. #14. History of VTE: Patient with documented history of previous VTE, not currently chronically anticoagulated, will maintain on chemoprophylaxis as noted. #15. GERD: Will continue patient home PPI. #16. DVT prophylaxis: Lovenox. #17. CODE status: Patient HCPOA is her and living will is currently in place. Discussed CODE status at length including difference between FULL code, DNR-CCA and DNR-CC status. Following discussions about the differences in these status, requested Full Code status. Advanced Care Planning Face to Face Time: 16 minutes. Charges/Coding Visit Charges Inpatient E&M: 91117 Init Hosp L3 Procedures Hospitalists Procedures: 46907 Advncd Care Plan 30 Min
--- OUTSIDE RECORDS SUMMARY | 2025-03-21 23:33 | XMS RPT_ITS | CCD ---
Author Organization [facility] CliniSynj Care Team Providers Care Education Manager Name Role Phone Zuleika Heaton Unavailable Unavailable LEE ALAMO Unavailable Unavailable PROVIDER, UNKNOWN Unavailable Unavailable Zuleika Heaton Unavailable Unavailable Dr. Ramone Smiley Primary Care Provider Dr. Ramone Smiley Referring Provider Dr. Michael Carmen Attending Provider Juan Carlos PERSONNEL CLERKS SUPERVISOR, PERSONNEL CLERKS SUPERVISOR-C Ara Attending Provider [phone] Dr. Angela Moncada Attending Provider Baljit LEARY, Ramone Noe Primary Care Provider [phone] Dr. Ramone Smiley Primary Care Provider [phone] Ramone Smiley Referring Provider DAVY Blackmon Attending Provider Ramone Smiley MD Primary Care Provider [phone] Dr. Ramone Smiley Primary Care Provider Dr. Ramone Smiley Referring Provider DAVY Peck Attending Provider Dr. oRbert Allison Emergency Provider Dr. Heydi Amaya Admit Provider Dr. Heydi Amaya Other Provider Dr. Nestor Bartlett Attending Provider Dr. Nestor aBrtlett Other Provider [phone] Dr. Ramone Veras Other Provider Dr. Sandeep Denson Attending Provider Unavailable Dr. Sandeep Denson Other Provider Unavailable Dr. Ramone Smiley Primary Care Provider Dr. Queta Cortez Emergency Provider [phone] Nestor Bartlett Admit Provider Dr. Nestor [...] Provider Baljit LEARY, Dr. Pack Referring Provider Irvin RAYMUNDO, Dr. Gregorio Emergency Provider Irvin RAYMUNDO, Dr. Gregorio Attending Provider Nash PERSONNEL CLERKS SUPERVISOR-Whitney Cabral Attending Provider Leydi LEARY, Dr. Rocha Emergency Provider Michi RAYMUNDO, Dr. Valdes Admit Provider Michi RAYMUNDO, Dr. Valdes Attending Provider Herrera LEARY, Dr. Hudson Attending Provider Antoni LEARY, Dr. Daniels Emergency Provider Tono Carbajal Attending Provider Keegan RAYMUNDO, Dr. Jones Emergency Provider Dhruv RAYMUNDO, Dr. Baez Admit Provider Dr. Nestor Bartlett DO Attending Provider Dr. Nestor Bartlett DO Other Provider Jose Luis LEARY, Dr. Soliz Attending Provider Jose Luis LEARY, Dr. Soliz Other Provider Billy Kothari MD Emergency Provider Billy Kothari MD Attending Provider Whitney Vasquez Referring Provider Nash JEAN-CWhitney Other Provider Florentino LEARY, Dr. Saez Attending Provider Smiley, Ramone Primary Care Unavailable Smiley, Ramone Attending Unavailable Smiley, Ramone Referring Unavailable Smiley, Ramone Primary Care Unavailable Smiley, Ramone Attending Unavailable Smiley, Ramone Referring Unavailable Smiley, Ramone Primary Care Unavailable Ethan Darnell Attending Unavailable Nestor Bartlett Admitting Unavailable Nestor Bartlett Consulting Unavailable Heydi Amaya Attending Unavailable Smiley, Ramone Primary Care Unavailable Smiley, Ramone Primary Care Unavailable Nash PERSONNEL CLERKS SUPERVISOR, Whitney Attending Unavailable Nash PERSONNEL CLERKS SUPERVISOR, Whitney Referring Unavailable Lucio Borden Admitting Unavailable Lucio Borden Attending Unavailable Smiley, Ramone Primary Care Unavailable Lucio Borden Attending Unavailable Lucio Borden Admitting Unavailable Smiley, Ramone Primary Care Unavailable Jg Bryan Attending Unavailable Smiley, Ramone Primary Care Unavailable Billy Kothari Attending Unavailable Smiley, Ramone Primary Care Unavailable Smiley, Ramone Primary Care Unavailable Jeevan Yoder Attending Unavailable Smiley, Ramone Primary Care Unavailable Kwaku Marcial Attending Unavailable Smiley, Ramone Primary Care Unavailable Jeevan Yoder Attending Unavailable Reodica, Billy Referring Unavailable Smiley, Ramone Primary Care Unavailable Reodica, Billy Attending Unavailable Smiley, Ramone Primary Care Unavailable Smiley, Ramone Referring Unavailable Smiley, Ramone Attending Unavailable Smiley, Ramone Primary Care Unavailable Smiley, Ramone Referring Unavailable Nash PERSONNEL CLERKS SUPERVISOR, Whitney Attending Unavailable You PA, Jason Referring Unavailable Smiley, Ramone Primary Care Unavailable [place] PA, Jason Attending Unavailable Smiley, Ramone Primary Care Unavailable Smiley, Ramone Attending Unavailable Smiley, Ramone Referring Unavailable Smiely, Ramone Primary Care Unavailable Sandeep Carlton Consulting Unavailable Sandeep Carlton Admitting Unavailable Melba Hartmann Attending Unavailable Lucio Borden Consulting Unavailable Marcelina Soto Consulting Unavailabl e Lucio Borden Consulting Unavailable Lucio Borden Admitting Unavailable Lucio Borden Attending Unavailable Smiley, Ramone Primary Care Unavailable Smiley, Ramone Primary Care Unavailable Gabriel Byrd Attending Unavailable Gabriel Byrd Referring Unavailable Lucio Borden Attending Unavailable Smiley, Ramone Primary Care Unavailable Lucio Borden Consulting Unavailable Lucio Borden Attending Unavailable Michi, Lucio Admitting Unavailable Smiley, Ramone Primary Care Unavailable Smiley, Ramone Primary Care Unavailable Marcelina Soto Attending Unavailabl e Nestor Bartlett Admitting Unavailable Nestor Bartlett Attending Unavailable Nestor Bartlett Consulting Unavailable Smiley, Ramone Primary Care Unavailable Heydi Amaya Attending Unavailable Heydi Amaya Consulting Unavailable Sandeep Carlton Admitting Unavailable Sandeep Carlton Consulting Unavailable Melba Hartmann Attending Unavailable Smiley, Ramone Primary Care Unavailable Lucio Borden Consulting Unavailable Hugh Sotoapradee Consulting Unavailabl e Mary Kate, Melba Nalini Consulting Unavailable Sandeep Carlton Attending Unavailable Becca Silverman Attending Unavailable Ramone Smiley Primary Care Unavailable Nash JEAN, Whitney Attending Unavailable Ramone Smiley Primary Care Unavailable Se Good Attending Unavailable Whitney Cao NP Referring Unavailable Whitney Cao NP Consulting Unavailable Ramone Smiley Primary Care Unavailable Ramone Smiley Attending Unavailable Ramone Smiley Referring Unavailable Smiley, Ramone Primary Care Unavailable Asha Anguiano Attending Unavailable Asha Anguiano Referring Unavailable Allergies Allergy Classification Reported Allergen(s) Allergy Type Date of Onset Reaction(s) Facility (20 sources) Adhesive Tape; Translations: [ADHESIVE TAPE] allergy to substance 5 NEEDS FOLLOW-UP [facility] Work Phone: Comment on above: CLOTH TAPE (20 sources) amoxicillin; Translations: [amoxicillin] drug allergy 5 yeast infection [facility] Work Phone: (2 sources) cephalexin drug allergy 5 [facility] Work Phone: [phone] (2 sources) clopidogrel drug allergy 5 [facility] Work Phone: (20 sources) Cephalexin; Translations: [cephalexin monohydrate] Drug Allergy 2 [facility] (20 sources) clopidogrel; Translations: [clopidogrel bisulfate] Drug Allergy 1 Hives [facility] Work Phone: (2 sources) cloth tap Allergy to substance 2 Other [facility] Work Phone: (5 sources) Cephalexin Drug Allergy 5 [facility] Work Phone: (5 sources) tape [Other] Propensity to adverse reactions 5 [facility] Medications Current Medications Medication Drug Class(es) [...] 19, 2018 1:00am October 26, 2018 1:09am [id number] 200 actuat albuter ol 0.09 mg/actuat metered [...] AERS As needed - 90mcg/inh ALBUTEROL SULFATE [id number] Se Good MD Start: 08-29-2015 VENTOLIN HFA 1 08 (90 Base) MCG/ACT AERS As needed - 90mcg/inh ALBUTEROL SULFATE [id number] Se Good MD Start: 12-25-2014 End: 01-12-2018 [...] / ipratropium bromide 0.167 mg/ml inhalation solution (10 sources) Anticholinergic, beta2-Adrenergic Agonist Start: 02-06-2025 ascorbic [...] TABS One tablet by mouth daily ASPIRIN [id number] Kadie Álvarez RN Start: 08-23-2015 take 1 tablet by martin th once daily ASPIRIN 81 MG TABS One tablet by mouth daily ASPIRIN [id number] Kadie Álvarez RN take 1 tablet by [...] in each nostril twice daily AZELASTINE HCL [id number] Kadie Álvarez RN Start: 08-23-2015 take 1-2 spray(s) na deepali route twice daily ASTEPRO 0.15 % SOLN 1-2 sprays in each nostril twice daily AZELASTINE HCL [id number] Kadie Álvarez RN take 1-2 spray(s) na [...] MCG/ACT AERO 2 puffs daily BUDESONIDE-FORMOTEROL FUMARATE [id number] Kadie Álvarez RN Start: 08-23-2015 SYMBICORT 160- 4.5 MCG/ACT AERO 2 puffs daily BUDESONIDE-FORMOTEROL FUMARATE [id number] Kadie Álvarez RN take 1 puff(s) by in halation twice daily budesonide-formoterol (SYMBICORT) 160-4.5 mcg/actuation inhaler Indications: Other iron deficiency anemia Inhale 1 Puff as instructed twice daily. 0 Active Comment on above: Inhale 1 Puff as ins tructed twice daily. Aujguxextv-Wviopnau-Miwzmncp ol (17 sources) Corticosteroid, beta2-Adrenergic Agonist Start: 01-07-2025 Start: [...] 12:00am cetirizine hydrochloride 10 mg oral tablet (9 sources) Histamine-1 Receptor Antagonist Start: 02-09-2025 ciprofloxacin 500 mg oral ta blet (20 sources) Quinolone Antimicrobial Start: 03-04-2025 Start: 08-17-2023 End: 09-21-2023 clindamycin 300 mg oral capsule (20 sources) [...] Start: 12-06-2021 take 1 capsule by [facility] once daily Cod Liver Oil Active 1 CAP PO DAILY December 05, 2021 11:00pm Start: 12-06-2021 take 1 capsule by mo [facility] once daily Cod Liver Oil Active 1 [...] Start: 01-07-2025 take 1 capsule by mo [facility] every twenty-four hours Diltiazem Hcl 180 mg capsule,ext.rel 24h degradable Active mg PO January 07, 2025 12:00am Start: 08-16-2018 End: 01-07-2025 Start: 08-29-2015 [facility] DILT-XR 180 MG CS05H-LVU One tablet by mouth daily DILTIAZEM HCL [id number] Se Good MD Start: 08-29-2015 take 1 tablet by martin th once daily DILT-XR 180 MG [id number] One tablet by mouth daily DILTIAZEM HCL [id number] Se Good MD Comment on above: Take [...] Start: 08-13-2023 take 1 capsule by mo arh at bedtime Gabapentin 100 mg capsule Active [...] 600 mg ext ended release oral tablet (5 sources) Start: 02-17-2025 hydrOXYzine hydrochloride 25 mg oral tablet (9 sources) Antihistamine Start: 02-09-2025 3 ml insulin glargine 100 un t/ml pen injector (17 sources) Insulin Analog Start: 01-07-2025 Start: 01-07-2025 [...] 0.021 mg /actuat metered dose nasal spray (17 sources) Anticholinergic Start: 01-07-2025 Start: 01-07-2025 Ipratropium [...] twice daily. mecobalamin 1 mg chewable tablet (16 sources) Start: 01-15-2025 Menthol / Zinc Oxide [...] POWD 3 times daily with water PSYLLIUM [id number] Kadie Álvarez RN Roflumilast (20 sources) Phosphodiesterase [...] mg / valsartan 26 mg oral tablet (14 sources) Angiotensin 2 Receptor Jefe Start: 02-07-2025 Start: 01-24-2025 SITagliptin 50 mg oral tablet (20 sources) Dipeptidyl Peptidase 4 Inhibitor Start: 01-21-2016 End: 10-18-2020 Comment on above: Take 50 mg by mouth once daily. Tirzepatide (Mounjaro) 5 mg/0.5 mL pen injector (1 source) Start: 01-15-2025 Tirzepatide (Mounjaro) 5 mg/0.5 mL pen injector Active 5 mg SC EVERY WEEK January 15, 2025 12:00am Vitamin X-Exjxtsaazudq-Jaxv ral (15 sources) Start: 12-02-2019 take 250 mg by mouth once daily Vitamin T-Bonvjznczhqp-Fjc eral Active 250 MG PO DAILY December 02, 2019 11:46am Start: 12-02-2019 End: 07-18-2023 take 250 mg by mouth once daily Vitamin V-Aediqfkmheuo-Fwxamuu Discontinued 250 MG PO DAILY December 02, 2019 12:00am July 19, 2023 12:34am Start: 12-02-2019 End: 07-18-2023 take 250 mg by mouth once daily Vitamin V-Aojvfpyrftdx-Vmnzjgl Discontinued 250 MG PO DAILY December 01, 2019 11:00pm July 18, 2023 11:34pm Start: 12-02-2019 take 250 mg by mouth once daily Vitamin A-Yftgpfydbddk-Zdybgvv Active 25 0 MG PO DAILY December 01, 2019 11:00pm Start: 12-02-2019 take 250 mg by mouth once daily Vitamin K-Dgnkgtdqyael-Epqpwrr Active 25 0 MG PO DAILY December [...] 6 HOURS as needed for pain 10 3 December 10, 2021 December 12, 2021 12:00am [...] One tablet by mouth daily AMLODIPINE BESYLATE [id number] Se Good MD apixaban 5 mg oral tablet (20 sources) Factor Xa Inhibitor Start: 01-15-2024 End: 01-07-2025 Start: 12-30-2023 End: 01-15-2024 azithromycin 250 mg oral tab let (18 sources) Macrolide Antimicrobial Start: 01-07-2025 End: 01-15-2025 [...] lower legs 1-2 times daily BETAMETHASONE DIPROPIONATE [id number] Kadie Álvarez RN Start: 08-23-2015 BETAMETHASONE DIPROPIONATE 0.05 % LOTN apply to lower legs 1-2 times daily BETAMETHASONE DIPROPIONATE [id number] Kadie Álvarez RN bisacodyl 10 mg rectal suppo sitory (20 sources) Stimulant Laxative Start: 12-30-2023 End: 01-15-2024 Start: 08-23-2015 take 1 tablet by martin once daily as needed BISACODYL EC 5 MG TBEC One tablet by mouth daily as needed BISACODYL [id number] Kadie Álvarez RN calcium carbonate (2 sources) Start: 08-23-2015 take 1 tablet by mouth once daily CALCIUM 600 600 MG TABS One tablet by mouth daily CALCIUM CARBONATE [id number] Kadie Álvarez RN Calcium Carbonate / vitamin [...] 4 MG TABS As needed CHLORPHENIRAMINE MALEATE [id number] Se Good MD cholecalciferol 0.025 mg oral [...] COD LIVER OIL CAPS (7 sources) Start: 08-23-20 15 take 1 tablet by mouth once daily COD LIVER OIL CAPS One tablet by mouth daily COD LIVER OIL CAPS [id number] Kadie Álvarez RN take 1 capsule by mouth once neftaly ly Cod Liver Oil cap Indications: Other iron deficiency anemia Take 1 capsule by mouth once daily. 0 Active Comment on above: Take 1 capsule by mo [facility] once daily. Cod Liver Oil capsule [...] 2:52pm docusate sodium 50 mg / sennosides, chcf 8.6 mg oral tablet (20 sources) Start: [...] 9:27am doxycycline monohydrate 100 mg oral capsule (18 sources) Tetracycline-class Drug Start: 05-30-2024 End: 01-07-2025 [...] mg / spironolactone 25 mg oral tablet (9 sources) Thiazide Diuretic, Aldosterone Antagonist Start: 02-09-2025 [...] units SQ daily at bedtime INSULIN DETEMIR [id number] Mariana Finley RN Start: 08-23-2015 inject 28 [IU] by avila bcutaneous injection once daily LEVEMIR 100 UNIT/ML SOLN 28 units SQ daily INSULIN DETEMIR [id number] Kadie Álvarez RN Start: 08-23-2015 take 15 [IU] by subc utaneous injection once daily at bedtime LEVEMIR 100 UNIT/ML SOLN 15 units SQ daily at bedtime INSULIN DETEMIR [id number] Mariana Finley RN Start: 08-23-2015 take 28 [IU] by subc utaneous injection once daily LEVEMIR 100 UNIT/ML SOLN 28 units SQ daily INSULIN DETEMIR [id number] Kadie Álvarez RN inject 52 [IU] by [...] 130 mg/dl levoFLOXacin 750 mg oral tablet (15 sources) Quinolone Antimicrobial Start: 01-24-2025 End: 01-31-2025 linaclotide 0.29 mg oral capsule (2 sources) Guanylate Cyclase-C Agonist Start: 08-23-2015 take 1 tablet by mouth once daily LINZESS 290 MCG CAPS One tablet by mouth daily LINACLOTIDE [id number] Kadie Álvarez RN Start: 08-23-2015 take 1 tablet by martin th once daily LINZESS 290 MCG CAPS One tablet by mouth daily LINACLOTIDE 29537422504 Kadie Álvarez RN lisinopril 40 mg oral [...] One tablet by mouth daily MAGNESIUM CAPS [id number] Kadie Álvarez RN metFORMIN hydrochloride 1000 mg oral tablet (2 sources) Biguanide take 1 tablet by mouth twice daily GLUCOPHAGE 1000 MG TABS One tablet by mouth twice daily METFORMIN HCL [id number] Julita Chau PERSONNEL CLERKS SUPERVISOR metFORMIN hydrochloride 1000 mg / SITagliptin 50 mg oral tablet (4 sources) Biguanide, Dipeptidyl Peptidase 4 Inhibitor Start: 5 End: 5 take 1 tablet by mouth twice daily JANUMET 50-1000 MG TABS One tablet by mouth twice daily SITAGLIPTIN-METFORMI N HCL [id number] Se Good MD Start: 08-23-2015 End: 08-29-2015 take 1 tablet by mouth twice daily JANUMET 50-1000 MG TABS One tablet by mouth twice daily SITAGLIPTIN-METFORMIN HCL [id number] Se Good MD Start: 08-23-2015 take 1 tablet by martin th twice daily JANUMET 50-1000 MG TABS One tablet by mouth twice daily SITAGLIPTIN-METFORMIN HCL [id number] Kadie Álvarez RN miSOPROStol 0.2 mg oral [...] 07-30-2023 oxyCODONE hydrochloride 5 mg oral tablet (18 sources) Opioid Agonist Start: 12-30-2023 End: 01-15-2024 [...] 02, 2019 11:45am August 13, 2023 2:59pm 1/4-1/2 capful before each meal Comment on above: [...] 12:18pm Start: 12-12-2019 take 2 tablets by [facility] twice daily potassium chloride 20 mEq TbER [...] on above: Take 2 tablets by mo uth twice daily. Potassium Chloride 20 MEQ Tab.Er.Prt [...] three times daily as needed PROMETHAZINE HCL 57014179963 Kadie Álvarez RN PSYLLIUM [place] WIGGINS, MISC (5 sources) PSYLLIUM Cris WIGGINS MISC Indications: Other iron deficiency anemia One [...] 1 tablet by martin th once daily RANITIDINE HCL 300 MG CAPS One tablet by mouth daily RANITIDINE HCL 89696945628 Kadie Álvarez RN Comment on above: Take 300 mg by mouth once daily. sennosides, chcf 8.6 mg oral tablet (5 sources) take 1 tablet by mouth twice daily senna (SENNA LAXATIVE) 8.6 mg tab Take 8.6 mg by mouth twice daily. 0 Active Comment on above: Take 8.6 mg by mouth twice daily. sodium chloride 0.111 meq/ml nasal spray (5 sources) sodium chloride (SALINE MIST) 0.65 % nasal spray Use 1 [place] in the nose as needed. 0 Active Comment on above: Use 1 [place] in the n ose as needed. sucralfate [...] End: 10-18-2020 Start: 01-24-2020 End: 10-18-2020 Tiotropium [place] (Spiriva With Handihaler) 18 mcg capsule, w/inhalation device Discontinued 1 NMA INHALATION NEEDED as needed for Sob &/Or Wheezing January 24, 2020 12:00am October 18, 2020 9:28am puncture 1 cap using device; one dose = 2 inhalations Start: 01-24-2020 End: 10-18-2020 Tiotropium [place] (Spiriva With Handihaler) 18 mcg capsule, w/inhalation device Discontinued 1 PUFF INHALATION NEEDED January 24, 2020 12:00am October 18, 2020 9:28am puncture 1 cap using device; one dose = 2 inhalations Start: 08-23-2015 SPIRIVA HANDIH ALER 18 MCG CAPS as needed TIOTROPIUM BROMIDE MONOHYDRATE [id number] Kadie Álvarez RN Start: 08-23-2015 SPIRIVA HANDIH ALER 18 MCG CAPS as needed TIOTROPIUM BROMIDE MONOHYDRATE [id number] Kadie Álvarez RN Start: 12-25-2014 End: 01-12-2018 [...] 10:27am triamcinolone acetonide 0.001 mg/mg topical ointment (17 sources) Corticosteroid Start: 01-07-2025 End: 01-15-2025 Vitamin Q-Rwzsrjaklxdk-Csosejo 500 MG tablet,chewable (2 sources) Start: 12-02-2019 End: 07-18-2023 Vitamin V-Zdusbrlnmhsk-Ivfwmgf 500 MG tablet,chewable Discontinued 250 mg PO DAILY December 02, 2019 12:00am July 19, 2023 12:34am Problems Active Problems Problem Classification Problem Date Documented Da te Episodic/Chronic Abdominal pain (5 sources) Abdominal pain; Translations: [Unspecified abdominal pain] 11-13-2006 Episodic Acute and unspecified renal failure (20 sources) Acute renal failure syndrome; Translations: [Acute kidney failure, unspecified] 12-02-2019 Episodic Acute bronchitis (17 sources) Acute exacerbation of chronic bronchitis; Translations: [...] on above: lumpectomy in 2003 Cardiac dysrhythmias (15 sources) Irregular heart beat; Translations: [Cardiac arrhythmia, [...] prosthetic device, implant and graft, initial encounter] Onset: 5 11-20-2018 Episodic Congestive heart failure; nonhypertensive (20 sources) Acute exacerbation of chronic congestive heart failure; Translations: [Heart failure, unspecified] Onset: 5 01-21-2025 Chronic Coronary atherosclerosis and other heart disease (20 sources) Coronary arteriosclerosis; Translations: [Atherosclerotic heart disease of [place] coronary artery without angina pectoris] Onset: 5 12-30-2023 Chronic Deficiency and other anemia (8 sources) Iron deficiency anemia due to blood loss; Translations: [Iron deficiency anemia secondary to blood loss (chronic)] Onset: 1 Chronic Deficiency and other anemia (20 sources) Anemia; Translations: [Anemia, unspecified] Onset: 6 [...] Chronic Comment on above: valve area in 2014 w as 1.7cm2 Malaise and fatigue (20 [...] in Jul 2018....tubular adenoma Other circulatory disease (17 sources) H/O: heart disorder; Translations: [Personal history of other diseases of the circulatory system] 06-07-2024 Episodic Other circulatory disease (9 sources) H/O: heart failure; Translations: [Personal history of other diseases of the circulatory system] 02-09-2025 Episodic Other congenital anomalies (5 sources) Congenital anomaly of skin; Translations: [Other specified congenital malformations of skin] Onset: 0 11-21-2009 Chronic Other connective tissue disease (1 source) Presence of left artificial hip joint; Translations: [Presence of left artificial hip joint] Onset: Chronic Other diseases of bladder and urethra (20 sources) Neurogenic bladder; Translations: [Neuromuscular dysfunction of bladder, unspecified] 03-25-2022 Chronic Other diseases of bladder and urethra (3 sources) Neuromuscular dysfunction of bladder, unspecified; Translations: [Neurogenic bladder NOS] 08-17-2023 Chronic Other diseases of veins and lymphatics (17 sources) Difficult venous access; Translations: [Other specified disorders of veins] 01-01-2024 Episodic Other gastrointestinal disorders (5 sources) Malabsorption - iron; Translations: [Intestinal malabsorption, unspecified] Onset: 1 02-06-2021 Chronic Other gastrointestinal disorders (20 sources) H/O: gastrointestinal disease; Translations: [Personal history of other diseases of the digestive system] 01-24-2020 Episodic Other gastrointestinal disorders (17 sources) Acute constipation; Translations: [Constipation, unspecified] 06-07-2024 Episodic Other lower respiratory disease (20 sources) Dyspnea; Translations: [Shortness of breath] Onset: 5 08-23-2015 Episodic Other lower respiratory disease (17 sources) Cough; Translations: [Cough] 01-07-2025 Episodic Other lower respiratory disease (20 sources) History of chronic obstructive airway disease; Translations: [Personal history of other diseases of the respiratory system] 02-04-2025 Episodic Other lower respiratory disease (18 sources) Hypoxia; Translations: [Hypoxemia] 02-09-2025 Episodic Other [...] Chronic Other nutritional; endocrine; and metabolic disorders (17 sources) Hypomagnesemia; Translations: [Hypomagnesemia] 12-30-2023 Chronic Other nutritional; endocrine; and metabolic disorders (20 sources) Obese class I; Translations: [Class 1 obesity] 01-20-2025 Chronic Other nutritional; endocrine; and metabolic disorders (20 sources) H/O: raised blood lipids; Translations: [Personal history of other endocrine, nutritional and metabolic disease] 01-28-2023 Episodic Other nutritional; endocrine; and metabolic disorders (18 sources) H/O: diabetes mellitus; Translations: [Personal history [...] 5 06-09-2005 Chronic Other upper respiratory disease (17 sources) Acute bronchospasm; Translations: [Acute bronchospasm] 06-07-2024 [...] Translations: [Other specified health status] 07-19-2023 Episodic Residual codes; unclassified (3 sources) Finding related to ability to manage personal health care; Translations: [Other specified health status] 03-04-2025 Episodic Respiratory failure; insufficiency; arrest (adult) (1 source) Chronic respiratory failure with hypercapnia; Translations: [Chronic respiratory failure with hypercapnia] Onset: 5 Chronic Respiratory failure; insufficiency; arrest (adult) (20 sources) Lqgtw-ma-vagmbtt respiratory failure; Translations: [Acute respiratory failure with [...] Episodic Fracture of neck of femur (hip) (20 sources) Closed fracture of hip; Translations: [Fracture [...] Test Name Value Interpretation Reference Range Facility Culture, Blood (WB)on 2024 CUB Blood cultures x2, from two different sites No growth in 5 days. Normal [facility] Comment on above: Performed By: #### L 100.0100, L503.6005, L500.4050, L300.3900, L300.4310, M200.1000 ####[facility] [id number] [place], [place], [id number] Cardiovascular stress test r eportOrdered By: Se Good on 03-07-2025 Study report [facility] Work Phone: Stress Reporton 03-07-2025 Stress Report Normal [facility] Urine Cultureon 03-06-2025 [facility]RC Normal [facility] Comment on above: Performed By: #### L 400.0001, M100.2200 ####[facility] [id number] [place], [place], [id number] 12 Lead EKGon 03-04-2025 12 Lead EKG Normal [facility] Abdomen/Pelvis W IV Cont ONL Yon 03-04-2025 Abdomen/Pelvis W IV Cont ONLY Normal [facility] Absolute lymphocyte countOrd ered By: Jeevan Yoder on 03-04-2025 Lymphocytes Auto (Unsp spec) [#/Vol] 1.75 10*3/uL 0.83-4.51 [facility] Activated partial thrombopla stin time (aPTT) in platelet poor plasma by coagulation aOrdered By: Jeevan Yoder on 03-04-2025 aPTT Coag (PPP) [Time] 25.2 s 24.1-36.2 [facility] Amorphous sediment detection in urine sediment by light microscopyOrdered By: Jeevan Yoder on 03-04-2025 Amorphous sediment LM Ql (Urine sed) 3+ [facility] Anion gap in Serum or Plasma Ordered By: Jeevan Yoder on 03-04-2025 Anion gap [Moles/Vol] 11 mmol/L 5-15 [facility] Automated lymphocyte count a s percentage of total leukocytesOrdered By: Jeevan Yoder on 03-04-2025 Lymphocytes/100 WBC Auto (Unsp spec) 24.2 % 19-41 [facility] BUN/creatinine ratioOrdered By: Jeevan Yoder on 03-04-2025 Urea nitrogen/Creatinine [Mass ratio] 18.1 mg/mg 10-20 [facility] Basophil percentageOrdered B y: Jeevan Yoder on 03-04-2025 Basophils/100 WBC (Bld) 0.4 % 0-1 [facility] Bilirubin Test strip Ql (U)O rdered By: Jeevan Yoder on 03-04-2025 Bilirubin Ql (U) Negative Negative [facility] Bilirubin, totalOrdered By: Jeevan Yoder on 03-04-2025 Bilirubin [Mass/Vol] 0.25 mg/dL 0.00-1.30 [facility] Blood cultureOrdered By: Maeve Yoder on 03-04-2025 Bacteria identified Cx Nom (Bld) No growth in 5 days. [facility] Bacteria identified Cx Nom (Bld) No growth in 5 days. [facility] CBC W/Diff, Automatedon 07-0 Absolute Lymph 1.75 X10 3/uL Normal 0.83-4.51 [facility] Comment on above: Performed By: #### L 100.0100, L503.6005, L500.4050, L300.3900, L300.4310, M200.1000 ####[facility] [address] [place], [place], [id number] Absolute Neut 4.8 X10 3/uL Normal 2.0-7.7 [facility] Comment on above: Performed By: #### L 100.0100, L503.6005, L500.4050, L300.3900, L300.4310, M200.1000 ####[facility] [address] [place], [address] Basophils/100 WBC (Bld) 0.4 % Normal 0-1 [facility] Comment on above: Performed By: #### L 100.0100, L503.6005, L500.4050, L300.3900, L300.4310, M200.1000 ####[facility] [address] [place], [address] Eosinophils/100 WBC (Bld) 1.7 % Normal 0-5 [facility] Comment on above: Performed By: #### L 100.0100, L503.6005, L500.4050, L300.3900, L300.4310, M200.1000 ####[facility] [address] [place], [address] Erythrocyte distribution width (RBC) [Ratio] 16.2 % High 11.6-14.6 [facility] Comment on above: Performed By: #### L 100.0100, L503.6005, L500.4050, L300.3900, L300.4310, M200.1000 ####[facility] [address] [place], [address] Hematocrit (Bld) [Volume fraction] 33.5 % Low 37-47 [facility] Comment on above: Performed By: #### L 100.0100, L503.6005, L500.4050, L300.3900, L300.4310, M200.1000 ####[facility] [address] [place], [address] Hemoglobin (Bld) [Mass/Vol] 10.1 g/dL Low 12.0-15.0 [facility] Comment on above: Performed By: #### L 100.0100, L503.6005, L500.4050, L300.3900, L300.4310, M200.1000 ####[facility] [address] [place], [address] IG% 0.700 Normal 0.0-0.9 [facility] Comment on above: Result Comment: IG% - Immature Granulocytes (promyelocytes, myelocytes andmetamyelocytes) > 1% indicates that a LEFT SHIFT is Present. Performed By: #### L 100.0100, L503.6005, L500.4050, L300.3900, L300.4310, M200.1000 ####[facility] [address] [place], [address] Lymphocytes/100 WBC (Bld) 24.2 % Normal 19-41 [facility] Comment on above: Performed By: #### L 100.0100, L503.6005, L500.4050, L300.3900, L300.4310, M200.1000 ####[facility] [address] [place], [address] MCH (RBC) [Entitic mass] 27.2 pg Normal 27.0-32.0 [facility] Comment on above: Performed By: #### L 100.0100, L503.6005, L500.4050, L300.3900, L300.4310, M200.1000 ####[facility] [address] [place], [address] MCHC (RBC) [Mass/Vol] 30.1 g/dL Low 32-36 [facility] Comment on above: Performed By: #### L 100.0100, L503.6005, L500.4050, L300.3900, L300.4310, M200.1000 ####[facility] [address] [place], [address] MCV (RBC) [Entitic vol] 90.3 fL Normal 81-99 [facility] Comment on above: Performed By: #### L 100.0100, L503.6005, L500.4050, L300.3900, L300.4310, M200.1000 ####[facility] [address] [place], [address] Monocytes/100 WBC (Bld) 6.9 % Normal 0-10 [facility] Comment on above: Performed By: #### L 100.0100, L503.6005, L500.4050, L300.3900, L300.4310, M200.1000 ####[facility] [address] [place], [address] Neutrophils/100 WBC (Bld) 66.1 % Normal 47-70 [facility] Comment on above: Performed By: #### L 100.0100, L503.6005, L500.4050, L300.3900, L300.4310, M200.1000 ####[facility] [address] [place], [address] Nucleated RBC (Bld) [#/Vol] 0 10*3/uL Normal 0-5 [facility] Comment on above: Performed By: #### L 100.0100, L503.6005, L500.4050, L300.3900, L300.4310, M200.1000 ####[facility] [address] [place], [address] Platelet mean volume (Bld) [Entitic vol] 10.6 fL Normal 6.2-12.0 [facility] Comment on above: Performed By: #### L 100.0100, L503.6005, L500.4050, L300.3900, L300.4310, M200.1000 ####[facility] [address] [place], [address] Platelets (Bld) [#/Vol] 334 10*3/uL Normal 150-450 [facility] Comment on above: Performed By: #### L 100.0100, L503.6005, L500.4050, L300.3900, L300.4310, M200.1000 ####[facility] [address] [place], [address] RBC (Bld) [#/Vol] 3.71 10*6/uL Low 4.2-5.4 [facility] Comment on above: Performed By: #### L 100.0100, L503.6005, L500.4050, L300.3900, L300.4310, M200.1000 ####[facility] [address] [place], [address] RDW SD 52.9 fl High 35.1-43.9 [facility] Comment on above: Performed By: #### L 100.0100, L503.6005, L500.4050, L300.3900, L300.4310, M200.1000 ####[facility] [address] [place], [address] WBC (Bld) [#/Vol] 7.2 10*3/uL Normal 4.4-11.0 [facility] Comment on above: Performed By: #### L 100.0100, L503.6005, L500.4050, L300.3900, L300.4310, M200.1000 ####[facility] [address] [place], [address] Carbon dioxide, total [Moles /volume] in Central venous bloodOrdered By: Jeevan Yoder on 03-04-2025 CO2 [Moles/Vol] 29.0 mmol/L 21.0-32.0 [facility] Chloride assayOrdered By: Kenny Yoder on 03-04-2025 Chloride [Moles/Vol] 97 mmol/L Low 98-108 [facility] Comprehensive Metabolic Prof ilon 03-04-2025 Albumin [Mass/Vol] 3.3 g/dL Low 3.4-4.8 [facility] Comment on above: Performed By: #### L 100.0100, L503.6005, L500.4050, L300.3900, L300.4310, M200.1000 ####[facility] [address] [place], [address] Albumin/Globulin [Mass ratio] 0.9 {ratio} Normal 0.9-2.4 [facility] Comment on above: Performed By: #### L 100.0100, L503.6005, L500.4050, L300.3900, L300.4310, M200.1000 ####[facility] [address] [place], [address] ALK PHOS 79 U/L Normal 35-104 [facility] Comment on above: Performed By: #### L 100.0100, L503.6005, L500.4050, L300.3900, L300.4310, M200.1000 ####[facility] [address] [place], [address] ALT [Catalytic activity/Vol] 25 U/L Normal <=34 [facility] Comment on above: Performed By: #### L 100.0100, L503.6005, L500.4050, L300.3900, L300.4310, M200.1000 ####[facility] [address] [place], [address] AST [Catalytic activity/Vol] 26 U/L Normal <=31 [facility] Comment on above: Performed By: #### L 100.0100, L503.6005, L500.4050, L300.3900, L300.4310, M200.1000 ####[facility] [address] [place], [address] Bilirubin [Mass/Vol] 0.25 mg/dL Normal 0.00-1.30 [facility] Comment on above: Performed By: #### L 100.0100, L503.6005, L500.4050, L300.3900, L300.4310, M200.1000 ####[facility] [address] [place], [address] BUN/CRE 18.1 RATIO Normal 10-20 [facility] Comment on above: Performed By: #### L 100.0100, L503.6005, L500.4050, L300.3900, L300.4310, M200.1000 ####[facility] [address] [place], [address] Calcium [Mass/Vol] 10.7 mg/dL Normal 7.6-11.0 [facility] Comment on above: Performed By: #### L 100.0100, L503.6005, L500.4050, L300.3900, L300.4310, M200.1000 ####[facility] [address] [place], [address] Chloride [Moles/Vol] 97 mmol/L Low 98-108 [facility] Comment on above: Performed By: #### L 100.0100, L503.6005, L500.4050, L300.3900, L300.4310, M200.1000 ####[facility] [address] [place], [address] CO2 [Moles/Vol] 29.0 mmol/L Normal 21.0-32.0 [facility] Comment on above: Performed By: #### L 100.0100, L503.6005, L500.4050, L300.3900, L300.4310, M200.1000 ####[facility] [address] [place], [address] Creatinine [Mass/Vol] 1.29 mg/dL High 0.70-1.20 [facility] Comment on above: Performed By: #### L 100.0100, L503.6005, L500.4050, L300.3900, L300.4310, M200.1000 ####[facility] [address] [place], [address] ECRCL 32.46 ml/min Low 50-250 [facility] Comment on above: Performed By: #### L 100.0100, L503.6005, L500.4050, L300.3900, L300.4310, M200.1000 ####[facility] [address] [place], [address] GAP 11 Normal 5-15 [facility] Comment on above: Performed By: #### L 100.0100, L503.6005, L500.4050, L300.3900, L300.4310, M200.1000 ####[facility] [address] [place], [address] GFR/1.73 sq M.predicted among non-blacks MDRD (S/P/Bld) [Vol rate/Area] 42 mL/min/{1.73_m2} Low >60 [facility] Comment on above: Result Comment: mL/m in/1.73m2 CKD-EPI Creatinine Equation (2020) Performed By: #### L 100.0100, L503.6005, L500.4050, L300.3900, L300.4310, M200.1000 ####[facility] [address] [place], [address] Globulin (S) [Mass/Vol] 3.6 g/dL Normal 2.2-4.2 [facility] Comment on above: Performed By: #### L 100.0100, L503.6005, L500.4050, L300.3900, L300.4310, M200.1000 ####[facility] [address] [place], [address] Glucose [Mass/Vol] 116 mg/dL High 70-99 [facility] Comment on above: Performed By: #### L 100.0100, L503.6005, L500.4050, L300.3900, L300.4310, M200.1000 ####[facility] [address] [place], [address] Potassium [Moles/Vol] 5.0 mmol/L Normal 3.3-5.1 [facility] Comment on above: Performed By: #### L 100.0100, L503.6005, L500.4050, L300.3900, L300.4310, M200.1000 ####[facility] [address] [place], [address] Sodium [Moles/Vol] 136 mmol/L Normal 133-145 [facility] Comment on above: Performed By: #### L 100.0100, L503.6005, L500.4050, L300.3900, L300.4310, M200.1000 ####[facility] [address] [place], [address] T PROT 6.9 g/dL Normal 5.9-8.4 [facility] Comment on above: Performed By: #### L 100.0100, L503.6005, L500.4050, L300.3900, L300.4310, M200.1000 ####[facility] [address] [place], [address] Urea nitrogen [Mass/Vol] 23 mg/dL High 4-19 [facility] Comment on above: Performed By: #### L 100.0100, L503.6005, L500.4050, L300.3900, L300.4310, M200.1000 ####[facility] [address] [place], [address] Emergency Department Summary on 03-04-2025 Emergency Department Summary Normal [facility] Eosinophil percentageOrdered By: Jeevan Yoder on 03-04-2025 Eosinophils/100 WBC (Bld) 1.7 % 0-5 [facility] Erythrocyte distribution wid th ratioOrdered By: Jeevan Yoder on 03-04-2025 Erythrocyte distribution width (RBC) [Ratio] 16.2 % High 11.6-14.6 [facility] Erythrocyte distribution wid th standard deviationOrdered By: Jeevan Yoder on 03-04-2025 Erythrocyte distribution width (RBC) [Ratio] 52.9 fl High 35.1-43.9 [facility] Glomerular filtration rate ( GFR) estimation/1.73 sq m using serum, plasma, or whole bOrdered By: Jeevan Yoder on 03-04-2025 GFR/1.73 sq M.predicted among non-blacks MDRD (S/P/Bld) [Vol rate/Area] 42 mL/min/{1.73_m2} Low >60 [facility] Hematocrit Auto (Bld) [Volum e fraction]Ordered By: Jeevanrichar Yoder on 03-04-2025 Hematocrit (Bld) [Volume fraction] 33.5 % Low 37-47 [facility] Hemoglobin measurementOrdere d By: Jeevan Yoder on 03-04-2025 Hemoglobin (Bld) [Mass/Vol] 10.1 g/dL Low 12.0-15.0 [facility] Immature granulocytes/100 WB C Auto (Bld)Ordered By: Jeevan Yoder on 03-04-2025 Immature granulocytes/100 WBC (Bld) 0.700 % 0.0-0.9 [facility] Ketones Test strip Ql (U)Ord ered By: Jeevan Yoder on 03-04-2025 Ketones Ql (U) 5 mg/dl High Negative [facility] Lactic Acidon 03-04-2025 Lactate [Moles/Vol] 2.0 mmol/L Normal 0.0-2.0 [facility] Comment on above: Order Comment: Y Result Comment: Crit ical Result(s) Called at: 2056 by:??ARCHIE LOVE Results read back by same. Performed By: #### L 100.0100, L503.6005, L500.4050, L300.3900, L300.4310, M200.1000 ####[facility] [address] [place], [address] MCV (mean corpuscular volume ) determinationOrdered By: Jeevan Yoder on 03-04-2025 MCV (RBC) [Entitic vol] 90.3 fL 81-99 [facility] Mean corpuscular hemoglobin (MCH) determinationOrdered By: Jeevan Yoder on 03-04-2025 MCH (RBC) [Entitic mass] 27.2 pg 27.0-32.0 [facility] Monocyte percentageOrdered B y: Jeevan Yoder on 03-04-2025 Monocytes/100 WBC (Bld) 6.9 % 0-10 [facility] Mucus LM Ql (Urine sed)Order ed By: Jeevan Yoder on 03-04-2025 Mucus Ql (Urine sed) 0 SEEN /hpf [facility] Neutrophil percentageOrdered By: Jeevan Yoder on 03-04-2025 Neutrophils/100 WBC (Bld) 66.1 % 47-70 [facility] Nitrite Test strip Ql (U)Ord ered By: Jeevan Yoder on 03-04-2025 Nitrite Ql (U) Negative Negative [facility] No Panel InformationOrdered By: Jeevan Yoder on 03-04-2025 26 U/L <32 [facility] Partial Thromboplast Timeon 03-04-2025 aPTT Coag (Bld) [Time] 25.2 s Normal 24.1-36.2 [facility] Comment on above: Performed By: #### L 100.0100, L503.6005, L500.4050, L300.3900, L300.4310, M200.1000 ####[facility] [address] [place], [place], [id number] Platelet countOrdered By: Kenny Yoder on 03-04-2025 Platelets (Bld) [#/Vol] 334 10*3/uL 150-450 [facility] Potassium measurement (mass/ volume)Ordered By: Jeevan Yoder on 03-04-2025 Potassium (Unsp spec) [Mass/Vol] 5.0 mmol/L 3.3-5.1 [facility] Protein Test strip Ql (U)Ord ered By: Jeevan Yoder on 03-04-2025 Protein Ql (U) 100 mg/dl High Negative [facility] Prothrombin Time w/INRon INR Coag (PPP) [Relative time] 1.0 {INR} Normal [facility] Comment on above: Performed By: #### L 100.0100, L503.6005, L500.4050, L300.3900, L300.4310, M200.1000 ####[facility] [address] [place], [place], [address] PT Coag (PPP) [Time] 13.8 s Normal 11.7-14.9 [facility] Comment on above: Performed By: #### L 100.0100, L503.6005, L500.4050, L300.3900, L300.4310, M200.1000 ####[facility] [address] [place], [place], [address] Prothrombin timeOrdered By: Jeevan Yoder on 03-04-2025 PT Coag (PPP) [Time] 13.8 s 11.7-14.9 [facility] RBC Auto (Bld) [#/Vol]Ordere d By: Jeevan Yoder on 03-04-2025 RBC (Bld) [#/Vol] 3.71 10*6/uL Low 4.2-5.4 [facility] Serum creatinine measurement (mass/volume)Ordered By: Jeevan Yoder on 03-04-2025 Creatinine [Mass/Vol] 1.29 mg/dL High 0.70-1.20 [facility] Serum globulin measurementOr dered By: Jeevan Yoder on 03-04-2025 Globulin (S) [Mass/Vol] 3.6 g/dL 2.2-4.2 [facility] Serum glucose measurement (m ass/volume)Ordered By: Jeevan Yoder on 03-04-2025 Glucose [Mass/Vol] 116 mg/dL High 70-99 [facility] Serum or plasma alanine kelley otransferase (ALT) measurementOrdered By: Jeevan Yoder on 03-04-2025 ALT [Catalytic activity/Vol] 25 U/L <35 [facility] Serum or plasma albumin melanie urement (mass/volume)Ordered By: Jeevan Yoder on 03-04-2025 Albumin [Mass/Vol] 3.3 g/dL Low 3.4-4.8 [facility] Serum or plasma albumin/glob ulin mass ratioOrdered By: Jeevan Yoder on 03-04-2025 Albumin/Globulin [Mass ratio] 0.9 {ratio} 0.9-2.4 [facility] Serum or plasma alkaline lissa sphatase measurementOrdered By: Jeevan Yoder on 03-04-2025 ALP [Catalytic activity/Vol] 79 U/L 35-104 [facility] Serum or plasma calcium melanie urement (mass/volume)Ordered By: Jeevan Yoder on 03-04-2025 Calcium [Mass/Vol] 10.7 mg/dL 7.6-11.0 [facility] Serum or plasma urea nitroge n measurement (mass/volume)Ordered By: Jeevan Yoder on 03-04-2025 Urea nitrogen [Mass/Vol] 23 mg/dL High 4-19 [facility] Sodium levelOrdered By: Marcelino Yoder on 03-04-2025 Sodium [Moles/Vol] 136 mmol/L 133-145 [facility] Squamous epithelial cells de tection in urine sediment by light microscopyOrdered By: Jeevan Yoder on 03-04-2025 Epithelial cells.squamous LM Ql (Urine sed) 0-5 SEEN /hpf 5-10 [facility] Total proteinOrdered By: Maeve Yoder on 03-04-2025 Protein [Mass/Vol] 6.9 g/dL 5.9-8.4 [facility] Urinalysis, Completeon 03-04 BACTERIA 4+ /hpf Normal None Seen [facility] Comment on above: Order Comment: MARSHALL CTOR TO SPECIFY Performed By: #### L 400.0001, M100.2200 ####[facility] [address] [place], [address] EPI,SQUAMOUS 0-5 SEEN Normal 5-10 [facility] Comment on above: Order Comment: MARSHALL CTOR TO SPECIFY Performed By: #### L 400.0001, M100.2200 ####[facility] [address] [place], [address] RBC 0-5 SEEN Normal 0-5 [facility] Comment on above: Order Comment: COLLE CTOR TO SPECIFY Performed By: #### L 400.0001, M100.2200 ####[facility] [address] [place], [address] YEAST 2+ /hpf Normal None Seen [facility] Comment on above: Order Comment: MARSHALL CTOR TO SPECIFY Performed By: #### L 400.0001, M100.2200 ####[facility] [address] [place], [address] AMORPHOUS 3+ Normal [facility] Comment on above: Order Comment: MARSHALL CTOR TO SPECIFY Performed By: #### L 400.0001, M100.2200 ####[facility] [address] [place], [address] WBC 25-50 SEEN Normal 0-5 [facility] Comment on above: Order Comment: MARSHALL CTOR TO SPECIFY Performed By: #### L 400.0001, M100.2200 ####[facility] [address] [place], [address] Mucus Ql (Urine sed) [address] [facility] Comment on above: Order Comment: MARSHALL CTOR TO SPECIFY Performed By: #### L 400.0001, M100.2200 ####[facility] [address] [place], [address] Urine clarityOrdered By: Maeve Yoder on 03-04-2025 Clarity (U) Cloudy Clear [facility] Urine color determinationOrd ered By: Jeevan Yoder on 03-04-2025 Color (U) Straw Yellow [facility] Urine cultureOrdered By: Maeve Yoder on 03-04-2025 Bacteria identified Cx Nom (U) Enterococcus faecalis Abnormal [facility] Urine glucose detectionOrder ed By: Jeevan Yoder on 03-04-2025 Glucose Ql (U) 100 mg/dl High Normal [facility] Urine leukocyte esterase det ection by dipstickOrdered By: Jeevan Yoder on 03-04-2025 Leukocyte esterase Test strip Ql (U) 500 /ul High Negative [facility] Urine pHOrdered By: Jeevan rai on 03-04-2025 pH (U) 7.0 [pH] 5.0 - 8.0 [facility] Urine sediment bacteria coun t by microscopy (number/high power field)Ordered By: Jeevan Yoder on 03-04-2025 Bacteria LM.HPF (Urine sed) [#/Area] 4 /[HPF] None Seen [facility] Urine sediment yeast count b y microscopy (number/high powered field)Ordered By: Jeevan Yoder on 03-04-2025 Yeast LM.HPF (Urine sed) [#/Area] 2 /[HPF] None Seen [facility] Urine specific gravity measu rementOrdered By: Jeevan Yoder on 03-04-2025 Specific gravity (U) [Rel density] 1.010 1.002-1.030 [facility] Urine urobilinogen measureme ntOrdered By: Jeevan Yoder on 03-04-2025 Urobilinogen Ql (U) Normal mg/dl Normal [facility] White blood cell (WBC) count Ordered By: Jeevan Yoder on 03-04-2025 WBC (Bld) [#/Vol] 7.2 10*3/uL 4.4-11.0 [facility] White blood cell countOrdere d By: Jeevan Yoder on 03-04-2025 White blood cell count 25-50 SEEN /hpf 0-5 [facility] Basic Metabolic Profile (BMP )on 02-23-2025 BUN Normal 4-19 [facility] Comment on above: Result Comment: Canc elled via OM: Order cancelled - Patient discharged Performed By: #### L 500.2500, L100.0100 ####[facility] [address] [place], [address] BUN/CRE Normal 10-20 [facility] Comment on above: Result Comment: Canc elled via OM: Order cancelled - Patient discharged Performed By: #### L 500.2500, L100.0100 ####[facility] [address] [place], [address] Calcium Normal 7.6-11.0 [facility] Comment on above: Result Comment: Canc elled via OM: Order cancelled - Patient discharged Performed By: #### L 500.2500, L100.0100 ####[facility] [address] [place], [address] CL Normal 98-108 [facility] Comment on above: Result Comment: Canc elled via OM: Order cancelled - Patient discharged Performed By: #### L 500.2500, L100.0100 ####[facility] [address] [place], [address] CO2 Normal 21.0-32.0 [facility] Comment on above: Result Comment: Canc elled via OM: Order cancelled - Patient discharged Performed By: #### L 500.2500, L100.0100 ####[facility] [address] [place], [address] CREAT,SERUM Normal 0.70-1.20 [facility] Comment on above: Result Comment: Canc elled via OM: Order cancelled - Patient discharged Performed By: #### L 500.2500, L100.0100 ####[facility] [address] [place], [address] eGFR Normal >60 [facility] Comment on above: Result Comment: Canc elled via OM: Order cancelled - Patient discharged Performed By: #### L 500.2500, L100.0100 ####[facility] [address] [place], [address] GAP Normal 5-15 [facility] Comment on above: Result Comment: Canc elled via OM: Order cancelled - Patient discharged Performed By: #### L 500.2500, L100.0100 ####[facility] [address] [place], [address] GLU Normal 70-99 [facility] [facility] Comment on above: Result Comment: Canc elled via OM: Order cancelled - Patient discharged Performed By: #### L 500.2500, L100.0100 ####[facility] [address] [place], [address] Potassium Normal 3.3-5.1 [facility] Comment on above: Result Comment: Canc elled via OM: Order cancelled - Patient discharged Performed By: #### L 500.2500, L100.0100 ####[facility] [address] [place], [address] Basic Metabolic Profile (BMP) Normal 133-145 [facility] Comment on above: Result Comment: Canc elled via OM: Order cancelled - Patient discharged Performed By: #### L 500.2500, L100.0100 ####[facility] [address] [place], [address] CBC W/Diff, Automatedon 06-2 -2024 Absolute Neut Normal 2.0-7.7 [facility] Comment on above: Result Comment: Canc elled via OM: Order cancelled - Patient discharged Performed By: #### L 500.2500, L100.0100 ####[facility] [address] [place], [address] HCT Normal 37-47 [facility] Comment on above: Result Comment: Canc elled via OM: Order cancelled - Patient discharged Performed By: #### L 500.2500, L100.0100 ####[facility] [address] [place], [address] HGB Normal 12.0-15.0 [facility] Comment on above: Result Comment: Canc elled via OM: Order cancelled - Patient discharged Performed By: #### L 500.2500, L100.0100 ####[facility] [address] [place], [address] MCH Normal 27.0-32.0 [facility] Comment on above: Result Comment: Canc elled via OM: Order cancelled - Patient discharged Performed By: #### L 500.2500, L100.0100 ####[facility] [address] [place], [address] MCHC Normal 32-36 [facility] Comment on above: Result Comment: Canc elled via OM: Order cancelled - Patient discharged Performed By: #### L 500.2500, L100.0100 ####[facility] [address] [place], [address] MCV Normal 81-99 [facility] Comment on above: Result Comment: Canc elled via OM: Order cancelled - Patient discharged Performed By: #### L 500.2500, L100.0100 ####[facility] [address] [place], [address] NEUT% Normal 47-70 [facility] Comment on above: Result Comment: Canc elled via OM: Order cancelled - Patient discharged Performed By: #### L 500.2500, L100.0100 ####[facility] [address] [place], [address] PLT Normal 150-450 [facility] Comment on above: Result Comment: Canc elled via OM: Order cancelled - Patient discharged Performed By: #### L 500.2500, L100.0100 ####[facility] [address] [place], [address] RBC Normal 4.2-5.4 [facility] Comment on above: Result Comment: Canc elled via OM: Order cancelled - Patient discharged Performed By: #### L 500.2500, L100.0100 ####[facility] [address] [place], [address] RDW CV Normal 11.6-14.6 [facility] Comment on above: Result Comment: Canc elled via OM: Order cancelled - Patient discharged Performed By: #### L 500.2500, L100.0100 ####[facility] [address] [place], [address] RDW SD Normal 35.1-43.9 [facility] Comment on above: Result Comment: Canc elled via OM: Order cancelled - Patient discharged Performed By: #### L 500.2500, L100.0100 ####[facility] [address] [place], [address] WBC Normal 4.4-11.0 [facility] Comment on above: Result Comment: Canc elled via OM: Order cancelled - Patient discharged Performed By: #### L 500.2500, L100.0100 ####[facility] [address] [place], [address] Basic Metabolic Profile (BMP )on 02-22-2025 BUN Normal 4-19 [facility] Comment on above: Result Comment: Canc elled via OM: Order cancelled - Patient discharged Performed By: #### L 500.2500, L100.0100 ####[facility] [address] [place], [address] BUN/CRE Normal 10-20 [facility] Comment on above: Result Comment: Canc elled via OM: Order cancelled - Patient discharged Performed By: #### L 500.2500, L100.0100 ####[facility] [address] [place], [address] Calcium Normal 7.6-11.0 [facility] Comment on above: Result Comment: Canc elled via OM: Order cancelled - Patient discharged Performed By: #### L 500.2500, L100.0100 ####[facility] [address] [place], [address] CL Normal 98-108 [facility] Comment on above: Result Comment: Canc elled via OM: Order cancelled - Patient discharged Performed By: #### L 500.2500, L100.0100 ####[facility] [address] [place], [address] CO2 Normal 21.0-32.0 [facility] Comment on above: Result Comment: Canc elled via OM: Order cancelled - Patient discharged Performed By: #### L 500.2500, L100.0100 ####[facility] [address] [place], [address] CREAT,SERUM Normal 0.70-1.20 [facility] Comment on above: Result Comment: Canc elled via OM: Order cancelled - Patient discharged Performed By: #### L 500.2500, L100.0100 ####[facility] [address] [place], [address] eGFR Normal >60 [facility] Comment on above: Result Comment: Canc elled via OM: Order cancelled - Patient discharged Performed By: #### L 500.2500, L100.0100 ####[facility] [address] [place], [address] GAP Normal 5-15 [facility] Comment on above: Result Comment: Canc elled via OM: Order cancelled - Patient discharged Performed By: #### L 500.2500, L100.0100 ####[facility] [address] [place], [address] GLU Normal 70-99 [facility] Comment on above: Result Comment: Canc elled via OM: Order cancelled - Patient discharged Performed By: #### L 500.2500, L100.0100 ####[facility] [address] [place], [address] Potassium Normal 3.3-5.1 [facility] Comment on above: Result Comment: Canc elled via OM: Order cancelled - Patient discharged Performed By: #### L 500.2500, L100.0100 ####[facility] [address] [place], [address] Basic Metabolic Profile (BMP) Normal 133-145 [facility] Comment on above: Result Comment: Canc elled via OM: Order cancelled - Patient discharged Performed By: #### L 500.2500, L100.0100 ####[facility] [address] [place], [address] CBC W/Diff, Automatedon 06-2 -2024 Absolute Neut Normal 2.0-7.7 [facility] Comment on above: Result Comment: Canc elled via OM: Order cancelled - Patient discharged Performed By: #### L 500.2500, L100.0100 ####[facility] [address] [place], [address] HCT Normal 37-47 [facility] Comment on above: Result Comment: Canc elled via OM: Order cancelled - Patient discharged Performed By: #### L 500.2500, L100.0100 ####[facility] [address] [place], [address] HGB Normal 12.0-15.0 [facility] Comment on above: Result Comment: Canc elled via OM: Order cancelled - Patient discharged Performed By: #### L 500.2500, L100.0100 ####[facility] [address] [place], [address] MCH Normal 27.0-32.0 [facility] Comment on above: Result Comment: Canc elled via OM: Order cancelled - Patient discharged Performed By: #### L 500.2500, L100.0100 ####[facility] [address] [place], [address] MCHC Normal 32-36 [facility] Comment on above: Result Comment: Canc elled via OM: Order cancelled - Patient discharged Performed By: #### L 500.2500, L100.0100 ####[facility] [address] [place], [address] MCV Normal 81-99 [facility] Comment on above: Result Comment: Canc elled via OM: Order cancelled - Patient discharged Performed By: #### L 500.2500, L100.0100 ####[facility] [address] [place], [address] NEUT% Normal 47-70 [facility] Comment on above: Result Comment: Canc elled via OM: Order cancelled - Patient discharged Performed By: #### L 500.2500, L100.0100 ####[facility] [address] [place], [address] PLT Normal 150-450 [facility] Comment on above: Result Comment: Canc elled via OM: Order cancelled - Patient discharged Performed By: #### L 500.2500, L100.0100 ####[facility] [address] [place], [address] RBC Normal 4.2-5.4 [facility] Comment on above: Result Comment: Canc elled via OM: Order cancelled - Patient discharged Performed By: #### L 500.2500, L100.0100 ####[facility] [address] [place], [address] RDW CV Normal 11.6-14.6 [facility] Comment on above: Result Comment: Canc elled via OM: Order cancelled - Patient discharged Performed By: #### L 500.2500, L100.0100 ####[facility] [address] [place], [address] RDW SD Normal 35.1-43.9 [facility] Comment on above: Result Comment: Canc elled via OM: Order cancelled - Patient discharged Performed By: #### L 500.2500, L100.0100 ####[facility] [address] [place], [address] WBC Normal 4.4-11.0 [facility] Comment on above: Result Comment: Canc elled via OM: Order cancelled - Patient discharged Performed By: #### L 500.2500, L100.0100 ####[facility] [address] [place], [address] Basic Metabolic Profile (BMP )on 02-21-2025 BUN Normal 4-19 [facility] Comment on above: Result Comment: Canc elled via OM: Order cancelled - Patient discharged Performed By: #### L 500.2500, L100.0100 ####[facility] [address] [place], [address] BUN/CRE Normal 10-20 [facility] Comment on above: Result Comment: Canc elled via OM: Order cancelled - Patient discharged Performed By: #### L 500.2500, L100.0100 ####[facility] [address] [place], [address] Calcium Normal 7.6-11.0 [facility] Comment on above: Result Comment: Canc elled via OM: Order cancelled - Patient discharged Performed By: #### L 500.2500, L100.0100 ####[facility] [address] [place], [address] CL Normal 98-108 [facility] Comment on above: Result Comment: Canc elled via OM: Order cancelled - Patient discharged Performed By: #### L 500.2500, L100.0100 ####[facility] [address] [place], [address] CO2 Normal 21.0-32.0 [facility] Comment on above: Result Comment: Canc elled via OM: Order cancelled - Patient discharged Performed By: #### L 500.2500, L100.0100 ####[facility] [address] [place], [address] CREAT,SERUM Normal 0.70-1.20 [facility] Comment on above: Result Comment: Canc elled via OM: Order cancelled - Patient discharged Performed By: #### L 500.2500, L100.0100 ####[facility] [address] [place], [address] eGFR Normal >60 [facility] Comment on above: Result Comment: Canc elled via OM: Order cancelled - Patient discharged Performed By: #### L 500.2500, L100.0100 ####[facility] [address] [place], [address] GAP Normal 5-15 [facility] Comment on above: Result Comment: Canc elled via OM: Order cancelled - Patient discharged Performed By: #### L 500.2500, L100.0100 ####[facility] [address] [place], [address] GLU Normal 70-99 [facility] Comment on above: Result Comment: Canc elled via OM: Order cancelled - Patient discharged Performed By: #### L 500.2500, L100.0100 ####[facility] [address] [place], [address] Potassium Normal 3.3-5.1 [facility] Comment on above: Result Comment: Canc elled via OM: Order cancelled - Patient discharged Performed By: #### L 500.2500, L100.0100 ####[facility] [address] [place], [address] Basic Metabolic Profile (BMP) Normal 133-145 [facility] Comment on above: Result Comment: Canc elled via OM: Order cancelled - Patient discharged Performed By: #### L 500.2500, L100.0100 ####[facility] [address] [place], [address] CBC W/Diff, Automatedon - Absolute Neut Normal 2.0-7.7 [facility] Comment on above: Result Comment: Canc elled via OM: Order cancelled - Patient discharged Performed By: #### L 500.2500, L100.0100 ####[facility] [address] [place], [address] HCT Normal 37-47 [facility] Comment on above: Result Comment: Canc elled via OM: Order cancelled - Patient discharged Performed By: #### L 500.2500, L100.0100 ####[facility] [address] [place], [address] HGB Normal 12.0-15.0 [facility] Comment on above: Result Comment: Canc elled via OM: Order cancelled - Patient discharged Performed By: #### L 500.2500, L100.0100 ####[facility] [address] [place], [address] MCH Normal 27.0-32.0 [facility] Comment on above: Result Comment: Canc elled via OM: Order cancelled - Patient discharged Performed By: #### L 500.2500, L100.0100 ####[facility] [address] [place], [address] MCHC Normal 32-36 [facility] Comment on above: Result Comment: Canc elled via OM: Order cancelled - Patient discharged Performed By: #### L 500.2500, L100.0100 ####[facility] [address] [place], [address] MCV Normal 81-99 [facility] Comment on above: Result Comment: Canc elled via OM: Order cancelled - Patient discharged Performed By: #### L 500.2500, L100.0100 ####[facility] [address] [place], [address] NEUT% Normal 47-70 [facility] Comment on above: Result Comment: Canc elled via OM: Order cancelled - Patient discharged Performed By: #### L 500.2500, L100.0100 ####[facility] [address] [place], [address] PLT Normal 150-450 [facility] Comment on above: Result Comment: Canc elled via OM: Order cancelled - Patient discharged Performed By: #### L 500.2500, L100.0100 ####[facility] [address] [place], [address] RBC Normal 4.2-5.4 [facility] Comment on above: Result Comment: Canc elled via OM: Order cancelled - Patient discharged Performed By: #### L 500.2500, L100.0100 ####[facility] [address] [place], [address] RDW CV Normal 11.6-14.6 [facility] Comment on above: Result Comment: Canc elled via OM: Order cancelled - Patient discharged Performed By: #### L 500.2500, L100.0100 ####[facility] [address] [place], [address] RDW SD Normal 35.1-43.9 [facility] Comment on above: Result Comment: Canc elled via OM: Order cancelled - Patient discharged Performed By: #### L 500.2500, L100.0100 ####[facility] [address] [place], [address] WBC Normal 4.4-11.0 [facility] Comment on above: Result Comment: Canc elled via OM: Order cancelled - Patient discharged Performed By: #### L 500.2500, L100.0100 ####[facility] [address] [place], [address] Basic Metabolic Profile (BMP )on 02-20-2025 BUN Normal 4-19 [facility] Comment on above: Result Comment: Canc elled via OM: Order cancelled - Patient discharged Performed By: #### L 100.0100, L500.2500 ####[facility] [address] [place], [address] BUN/CRE Normal 10-20 [facility] Comment on above: Result Comment: Canc elled via OM: Order cancelled - Patient discharged Performed By: #### L 100.0100, L500.2500 ####[facility] [address] [place], [address] Calcium Normal 7.6-11.0 [facility] Comment on above: Result Comment: Canc elled via OM: Order cancelled - Patient discharged Performed By: #### L 100.0100, L500.2500 ####[facility] [address] [place], [address] CL Normal 98-108 [facility] Comment on above: Result Comment: Canc elled via OM: Order cancelled - Patient discharged Performed By: #### L 100.0100, L500.2500 ####[facility] [address] [place], [address] CO2 Normal 21.0-32.0 [facility] Comment on above: Result Comment: Canc elled via OM: Order cancelled - Patient discharged Performed By: #### L 100.0100, L500.2500 ####[facility] [address] [place], [address] CREAT,SERUM Normal 0.70-1.20 [facility] Comment on above: Result Comment: Canc elled via OM: Order cancelled - Patient discharged Performed By: #### L 100.0100, L500.2500 ####[facility] [address] [place], [address] eGFR Normal >60 [facility] Comment on above: Result Comment: Canc elled via OM: Order cancelled - Patient discharged Performed By: #### L 100.0100, L500.2500 ####[facility] [address] [place], [address] GAP Normal 5-15 [facility] Comment on above: Result Comment: Canc elled via OM: Order cancelled - Patient discharged Performed By: #### L 100.0100, L500.2500 ####[facility] [address] [place], [address] GLU Normal 70-99 [facility] Comment on above: Result Comment: Canc elled via OM: Order cancelled - Patient discharged Performed By: #### L 100.0100, L500.2500 ####[facility] [address] [place], [address] Potassium Normal 3.3-5.1 [facility] Comment on above: Result Comment: Canc elled via OM: Order cancelled - Patient discharged Performed By: #### L 100.0100, L500.2500 ####[facility] [address] [place], [address] Basic Metabolic Profile (BMP) Normal 133-145 [facility] Comment on above: Result Comment: Canc elled via OM: Order cancelled - Patient discharged Performed By: #### L 100.0100, L500.2500 ####[facility] [address] [place], [address] Bedside Glucoseon 02-20-2025 FINGERSTICK GLU 385 mg/dL High 74-106 [facility] Comment on above: Result Comment: KATARINA GEMENT OF PATIENT CARE PER NURSING PROTOCOL Performed By: #### L 501.080 ####[facility] [address] [place], [address] FINGERSTICK GLU 419 mg/dL High 74-106 [facility] Comment on above: Result Comment: KATARINA GEMENT OF PATIENT CARE PER NURSING PROTOCOL Performed By: #### L 501.080 ####[facility] [address] [place], [address] CBC W/Diff, Automatedon 06-2 Absolute Neut Normal 2.0-7.7 [facility] Comment on above: Result Comment: Canc elled via OM: Order cancelled - Patient discharged Performed By: #### L 100.0100, L500.2500 ####[facility] [address] [place], [address] HCT Normal 37-47 [facility] Comment on above: Result Comment: Canc elled via OM: Order cancelled - Patient discharged Performed By: #### L 100.0100, L500.2500 ####[facility] [address] [place], [address] HGB Normal 12.0-15.0 [facility] Comment on above: Result Comment: Canc elled via OM: Order cancelled - Patient discharged Performed By: #### L 100.0100, L500.2500 ####[facility] [address] [place], [address] MCH Normal 27.0-32.0 [facility] Comment on above: Result Comment: Canc elled via OM: Order cancelled - Patient discharged Performed By: #### L 100.0100, L500.2500 ####[facility] [address] [place], [address] MCHC Normal 32-36 [facility] Comment on above: Result Comment: Canc elled via OM: Order cancelled - Patient discharged Performed By: #### L 100.0100, L500.2500 ####[facility] [address] [place], [address] MCV Normal 81-99 [facility] Comment on above: Result Comment: Canc elled via OM: Order cancelled - Patient discharged Performed By: #### L 100.0100, L500.2500 ####[facility] [address] [place], [address] NEUT% Normal 47-70 [facility] Comment on above: Result Comment: Canc elled via OM: Order cancelled - Patient discharged Performed By: #### L 100.0100, L500.2500 ####[facility] [address] [place], [address] PLT Normal 150-450 [facility] Comment on above: Result Comment: Canc elled via OM: Order cancelled - Patient discharged Performed By: #### L 100.0100, L500.2500 ####[facility] [address] [place], [address] RBC Normal 4.2-5.4 [facility] Comment on above: Result Comment: Canc elled via OM: Order cancelled - Patient discharged Performed By: #### L 100.0100, L500.2500 ####[facility] [address] [place], [address] RDW CV Normal 11.6-14.6 [facility] Comment on above: Result Comment: Canc elled via OM: Order cancelled - Patient discharged Performed By: #### L 100.0100, L500.2500 ####[facility] [address] [place], [address] RDW SD Normal 35.1-43.9 [facility] Comment on above: Result Comment: Canc elled via OM: Order cancelled - Patient discharged Performed By: #### L 100.0100, L500.2500 ####[facility] [address] [place], [address] WBC Normal 4.4-11.0 [facility] Comment on above: Result Comment: Canc elled via OM: Order cancelled - Patient discharged Performed By: #### L 100.0100, L500.2500 ####[facility] [address] [place], [address] Basic Metabolic Profile (BMP )on 02-19-2025 BUN Normal 4-19 [facility] Comment on above: Result Comment: Canc elled via OM: Order cancelled - Patient discharged Performed By: #### L 500.2500, L100.0100 ####[facility] [address] [place], [address] BUN/CRE Normal 10-20 [facility] Comment on above: Result Comment: Canc elled via OM: Order cancelled - Patient discharged Performed By: #### L 500.2500, L100.0100 ####[facility] [address] [place], [address] Calcium Normal 7.6-11.0 [facility] Comment on above: Result Comment: Canc elled via OM: Order cancelled - Patient discharged Performed By: #### L 500.2500, L100.0100 ####[facility] [address] [place], [address] CL Normal 98-108 [facility] Comment on above: Result Comment: Canc elled via OM: Order cancelled - Patient discharged Performed By: #### L 500.2500, L100.0100 ####[facility] [address] [place], [address] CO2 Normal 21.0-32.0 [facility] Comment on above: Result Comment: Canc elled via OM: Order cancelled - Patient discharged Performed By: #### L 500.2500, L100.0100 ####[facility] [address] [place], [address] CREAT,SERUM Normal 0.70-1.20 [facility] Comment on above: Result Comment: Canc elled via OM: Order cancelled - Patient discharged Performed By: #### L 500.2500, L100.0100 ####[facility] [address] [place], [address] eGFR Normal >60 [facility] [facility] Comment on above: Result Comment: Canc elled via OM: Order cancelled - Patient discharged Performed By: #### L 500.2500, L100.0100 ####[facility] [address] [place], [address] GAP Normal 5-15 [facility] Comment on above: Result Comment: Canc elled via OM: Order cancelled - Patient discharged Performed By: #### L 500.2500, L100.0100 ####[facility] [address] [place], [address] GLU Normal 70-99 [facility] Comment on above: Result Comment: Canc elled via OM: Order cancelled - Patient discharged Performed By: #### L 500.2500, L100.0100 ####[facility] [address] [place], [address] Potassium Normal 3.3-5.1 [facility] Comment on above: Result Comment: Canc elled via OM: Order cancelled - Patient discharged Performed By: #### L 500.2500, L100.0100 ####[facility] [address] [place], [address] Basic Metabolic Profile (BMP) Normal 133-145 [facility] Comment on above: Result Comment: Canc elled via OM: Order cancelled - Patient discharged Performed By: #### L 500.2500, L100.0100 ####[facility] [address] [place], [address] CBC W/Diff, Automatedon 06-2 Absolute Neut Normal 2.0-7.7 [facility] Comment on above: Result Comment: Canc elled via OM: Order cancelled - Patient discharged Performed By: #### L 500.2500, L100.0100 ####[facility] [address] [place], [address] HCT Normal 37-47 [facility] Comment on above: Result Comment: Canc elled via OM: Order cancelled - Patient discharged Performed By: #### L 500.2500, L100.0100 ####[facility] [address] [place], [address] HGB Normal 12.0-15.0 [facility] Comment on above: Result Comment: Canc elled via OM: Order cancelled - Patient discharged Performed By: #### L 500.2500, L100.0100 ####[facility] [address] [place], [address] MCH Normal 27.0-32.0 [facility] Comment on above: Result Comment: Canc elled via OM: Order cancelled - Patient discharged Performed By: #### L 500.2500, L100.0100 ####[facility] [address] [place], [address] MCHC Normal 32-36 [facility] Comment on above: Result Comment: Canc elled via OM: Order cancelled - Patient discharged Performed By: #### L 500.2500, L100.0100 ####[facility] [address] [place], [address] MCV Normal 81-99 [facility] Comment on above: Result Comment: Canc elled via OM: Order cancelled - Patient discharged Performed By: #### L 500.2500, L100.0100 ####[facility] [address] [place], [address] NEUT% Normal 47-70 [facility] Comment on above: Result Comment: Canc elled via OM: Order cancelled - Patient discharged Performed By: #### L 500.2500, L100.0100 ####[facility] [address] [place], [address] PLT Normal 150-450 [facility] Comment on above: Result Comment: Canc elled via OM: Order cancelled - Patient discharged Performed By: #### L 500.2500, L100.0100 ####[facility] [address] [place], [address] RBC Normal 4.2-5.4 [facility] Comment on above: Result Comment: Canc elled via OM: Order cancelled - Patient discharged Performed By: #### L 500.2500, L100.0100 ####[facility] [address] [place], [address] RDW CV Normal 11.6-14.6 [facility] Comment on above: Result Comment: Canc elled via OM: Order cancelled - Patient discharged Performed By: #### L 500.2500, L100.0100 ####[facility] [address] [place], [address] RDW SD Normal 35.1-43.9 [facility] Comment on above: Result Comment: Canc elled via OM: Order cancelled - Patient discharged Performed By: #### L 500.2500, L100.0100 ####[facility] [address] [place], [address] WBC Normal 4.4-11.0 [facility] Comment on above: Result Comment: Canc elled via OM: Order cancelled - Patient discharged Performed By: #### L 500.2500, L100.0100 ####[facility] [address] [place], [address] 12 Lead EKGon 02-18-2025 12 Lead EKG Normal [facility] Absolute lymphocyte countOrd ered By: Billy Kothari on 02-18-2025 Lymphocytes Auto (Unsp spec) [#/Vol] 1.53 10*3/uL 0.83-4.51 [facility] Anion gap in Serum or Plasma Ordered By: Billy Kothari on 02-18-2025 Anion gap [Moles/Vol] 11 mmol/L 5-15 [facility] Automated lymphocyte count a s percentage of total leukocytesOrdered By: Billy Kothari on 02-18-2025 Lymphocytes/100 WBC Auto (Unsp spec) 12.5 % Low 19-41 [facility] BUN/creatinine ratioOrdered By: Billy Kothari on 02-18-2025 Urea nitrogen/Creatinine [Mass ratio] 19.9 mg/mg - [facility] Basic Metabolic Profile (BMP )on 02-18-2025 BUN/CRE 19.9 RATIO Normal - [facility] Comment on above: Performed By: #### L 500.2500, L100.0100 ####[facility] [address] [place], [address] Calcium [Mass/Vol] 10.7 mg/dL Normal 7.6-11.0 [facility] Comment on above: Performed By: #### L 500.2500, L100.0100 ####[facility] [address] [place], [address] Chloride [Moles/Vol] 97 mmol/L Low 98-108 [facility] Comment on above: Performed By: #### L 500.2500, L100.0100 ####[facility] [address] [place], [address] CO2 [Moles/Vol] 28.1 mmol/L Normal 21.0-32.0 [facility] Comment on above: Performed By: #### L 500.2500, L100.0100 ####[facility] [address] [place], [address] Creatinine [Mass/Vol] 1.26 mg/dL High 0.70-1.20 [facility] Comment on above: Performed By: #### L 500.2500, L100.0100 ####[facility] [address] [place], [address] ECRCL 34.58 ml/min Low 50-250 [facility] Comment on above: Performed By: #### L 500.2500, L100.0100 ####[facility] [address] [place], [address] GAP 11 Normal 5-15 [facility] Comment on above: Performed By: #### L 500.2500, L100.0100 ####[facility] [address] [place], [address] GFR/1.73 sq M.predicted among non-blacks MDRD (S/P/Bld) [Vol rate/Area] 43 mL/min/{1.73_m2} Low >60 [facility] Comment on above: Result Comment: mL/m in/1.73m2 CKD-EPI Creatinine Equation (2020) Performed By: #### L 500.2500, L100.0100 ####[facility] [address] [place], [address] Glucose [Mass/Vol] 174 mg/dL High 70-99 [facility] Comment on above: Performed By: #### L 500.2500, L100.0100 ####[facility] [address] [place], [address] Potassium [Moles/Vol] 6.0 mmol/L Invalid Interpretation Code 3.3-5.1 [facility] Comment on above: Result Comment: Hemo lysis present, Results??could be affected.??Critical Result(s) Called EFINK at: 2254 by:VIET??Results read back by same.Hemolysis present, Results??could be affected.?? Performed By: #### L 500.2500, L100.0100 ####[facility] [address] [place], [address] Sodium [Moles/Vol] 136 mmol/L Normal 133-145 [facility] Comment on above: Performed By: #### L 500.2500, L100.0100 ####[facility] [address] [place], [address] Urea nitrogen [Mass/Vol] 25 mg/dL High 4-19 [facility] Comment on above: Performed By: #### L 500.2500, L100.0100 ####[facility] [address] [place], [address] BUN Normal 4-19 [facility] Comment on above: Result Comment: Canc elled via OM: Order cancelled - Patient discharged Performed By: #### L 100.0100, L500.2500 ####[facility] [address] [place], [address] BUN/CRE Normal 10-20 [facility] Comment on above: Result Comment: Canc elled via OM: Order cancelled - Patient discharged Performed By: #### L 100.0100, L500.2500 ####[facility] [address] [place], [address] Calcium Normal 7.6-11.0 [facility] Comment on above: Result Comment: Canc elled via OM: Order cancelled - Patient discharged Performed By: #### L 100.0100, L500.2500 ####[facility] [address] [place], [address] CL Normal 98-108 [facility] Comment on above: Result Comment: Canc elled via OM: Order cancelled - Patient discharged Performed By: #### L 100.0100, L500.2500 ####[facility] [address] [place], [address] CO2 Normal 21.0-32.0 [facility] Comment on above: Result Comment: Canc elled via OM: Order cancelled - Patient discharged Performed By: #### L 100.0100, L500.2500 ####[facility] [address] [place], [address] CREAT,SERUM Normal 0.70-1.20 [facility] Comment on above: Result Comment: Canc elled via OM: Order cancelled - Patient discharged Performed By: #### L 100.0100, L500.2500 ####[facility] [address] [place], [address] eGFR Normal >60 [facility] Comment on above: Result Comment: Canc elled via OM: Order cancelled - Patient discharged Performed By: #### L 100.0100, L500.2500 ####[facility] [address] [place], [address] GAP Normal 5-15 [facility] Comment on above: Result Comment: Canc elled via OM: Order cancelled - Patient discharged Performed By: #### L 100.0100, L500.2500 ####[facility] [address] [place], [address] GLU Normal 70-99 [facility] Comment on above: Result Comment: Canc elled via OM: Order cancelled - Patient discharged Performed By: #### L 100.0100, L500.2500 ####[facility] [address] [place], [address] Potassium Normal 3.3-5.1 [facility] Comment on above: Result Comment: Canc elled via OM: Order cancelled - Patient discharged Performed By: #### L 100.0100, L500.2500 ####[facility] [address] [place], [address] Basic Metabolic Profile (BMP) Normal 133-145 [facility] Comment on above: Result Comment: Canc elled via OM: Order cancelled - Patient discharged Performed By: #### L 100.0100, L500.2500 ####[facility] [address] [place], [address] Basophil percentageOrdered B y: Billy Becerraa on 02-18-2025 Basophils/100 WBC (Bld) 0.2 % 0-1 [facility] CBC W/Diff, Automatedon 01-30 Absolute Lymph 1.53 X10 3/uL Normal 0.83-4.51 [facility] Comment on above: Performed By: #### L 500.2500, L100.0100 ####[facility] [address] [place], [address] Absolute Neut 9.6 X10 3/uL High 2.0-7.7 [facility] Comment on above: Performed By: #### L 500.2500, L100.0100 ####[facility] [address] [place], [address] Basophils/100 WBC (Bld) 0.2 % Normal 0-1 [facility] Comment on above: Performed By: #### L 500.2500, L100.0100 ####[facility] [address] [place], [address] Eosinophils/100 WBC (Bld) 1.0 % Normal 0-5 [facility] Comment on above: Performed By: #### L 500.2500, L100.0100 ####[facility] [address] [place], [address] Erythrocyte distribution width (RBC) [Ratio] 15.9 % High 11.6-14.6 [facility] Comment on above: Performed By: #### L 500.2500, L100.0100 ####[facility] [address] [place], [address] Hematocrit (Bld) [Volume fraction] 35.8 % Low 37-47 [facility] Comment on above: Performed By: #### L 500.2500, L100.0100 ####[facility] [address] [place], [address] Hemoglobin (Bld) [Mass/Vol] 10.9 g/dL Low 12.0-15.0 [facility] Comment on above: Performed By: #### L 500.2500, L100.0100 ####[facility] [address] [place], [address] IG% 0.900 Normal 0.0-0.9 [facility] Comment on above: Result Comment: IG% - Immature Granulocytes (promyelocytes, myelocytes andmetamyelocytes) > 1% indicates that a LEFT SHIFT is Present. Performed By: #### L 500.2500, L100.0100 ####[facility] [address] [place], [address] Lymphocytes/100 WBC (Bld) 12.5 % Low 19-41 [facility] Comment on above: Performed By: #### L 500.2500, L100.0100 ####[facility] [address] [place], [address] MCH (RBC) [Entitic mass] 27.9 pg Normal 27.0-32.0 [facility] Comment on above: Performed By: #### L 500.2500, L100.0100 ####[facility] [address] [place], [address] MCHC (RBC) [Mass/Vol] 30.4 g/dL Low 32-36 [facility] Comment on above: Performed By: #### L 500.2500, L100.0100 ####[facility] [address] [place], [address] MCV (RBC) [Entitic vol] 91.6 fL Normal 81-99 [facility] Comment on above: Performed By: #### L 500.2500, L100.0100 ####[facility] [address] [place], [address] Monocytes/100 WBC (Bld) 6.7 % Normal 0-10 [facility] Comment on above: Performed By: #### L 500.2500, L100.0100 ####[facility] [address] [place], [address] Neutrophils/100 WBC (Bld) 78.7 % High 47-70 [facility] Comment on above: Performed By: #### L 500.2500, L100.0100 ####[facility] [address] [place], [address] Nucleated RBC (Bld) [#/Vol] 0 10*3/uL Normal 0-5 [facility] Comment on above: Performed By: #### L 500.2500, L100.0100 ####[facility] [address] [place], [address] Platelet mean volume (Bld) [Entitic vol] 11.5 fL Normal 6.2-12.0 [facility] Comment on above: Performed By: #### L 500.2500, L100.0100 ####[facility] [address] [place], [address] Platelets (Bld) [#/Vol] 337 10*3/uL Normal 150-450 [facility] Comment on above: Performed By: #### L 500.2500, L100.0100 ####[facility] [address] [place], [address] RBC (Bld) [#/Vol] 3.91 10*6/uL Low 4.2-5.4 [facility] Comment on above: Performed By: #### L 500.2500, L100.0100 ####[facility] [address] [place], [address] RDW SD 52.1 fl High 35.1-43.9 [facility] Comment on above: Performed By: #### L 500.2500, L100.0100 ####[facility] [address] [place], [address] WBC (Bld) [#/Vol] 12.2 10*3/uL High 4.4-11.0 [facility] Comment on above: Performed By: #### L 500.2500, L100.0100 ####[facility] [address] [place], [address] Absolute Neut Normal 2.0-7.7 [facility] Comment on above: Result Comment: Canc elled via OM: Order cancelled - Patient discharged Performed By: #### L 100.0100, L500.2500 ####[facility] [address] [place], [address] HCT Normal 37-47 [facility] Comment on above: Result Comment: Canc elled via OM: Order cancelled - Patient discharged Performed By: #### L 100.0100, L500.2500 ####[facility] [address] [place], [address] HGB Normal 12.0-15.0 [facility] Comment on above: Result Comment: Canc elled via OM: Order cancelled - Patient discharged Performed By: #### L 100.0100, L500.2500 ####[facility] [address] [place], [address] MCH Normal 27.0-32.0 [facility] Comment on above: Result Comment: Canc elled via OM: Order cancelled - Patient discharged Performed By: #### L 100.0100, L500.2500 ####[facility] [address] [place], [address] MCHC Normal 32-36 [facility] Comment on above: Result Comment: Canc elled via OM: Order cancelled - Patient discharged Performed By: #### L 100.0100, L500.2500 ####[facility] [address] [place], [address] MCV Normal 81-99 [facility] Comment on above: Result Comment: Canc elled via OM: Order cancelled - Patient discharged Performed By: #### L 100.0100, L500.2500 ####[facility] [address] [place], [address] NEUT% Normal 47-70 [facility] Comment on above: Result Comment: Canc elled via OM: Order cancelled - Patient discharged Performed By: #### L 100.0100, L500.2500 ####[facility] [address] [place], [address] PLT Normal 150-450 [facility] Comment on above: Result Comment: Canc elled via OM: Order cancelled - Patient discharged Performed By: #### L 100.0100, L500.2500 ####[facility] [address] [place], [address] RBC Normal 4.2-5.4 [facility] Comment on above: Result Comment: Canc elled via OM: Order cancelled - Patient discharged Performed By: #### L 100.0100, L500.2500 ####[facility] [address] [place], [address] RDW CV Normal 11.6-14.6 [facility] Comment on above: Result Comment: Canc elled via OM: Order cancelled - Patient discharged Performed By: #### L 100.0100, L500.2500 ####[facility] [address] [place], [address] RDW SD Normal 35.1-43.9 [facility] Comment on above: Result Comment: Canc elled via OM: Order cancelled - Patient discharged Performed By: #### L 100.0100, L500.2500 ####[facility] [address] [place], [address] WBC Normal 4.4-11.0 [facility] Comment on above: Result Comment: Canc elled via OM: Order cancelled - Patient discharged Performed By: #### L 100.0100, L500.2500 ####[facility] [address] [place], [address] Carbon dioxide, total [Moles /volume] in Central venous bloodOrdered By: Billy Kothari on 02-18-2025 CO2 [Moles/Vol] 28.1 mmol/L 21.0-32.0 [facility] Chest 1 View (Portable)on Chest 1 View (Portable) Normal [facility] Chloride assayOrdered By: Dante Kothari on 02-18-2025 Chloride [Moles/Vol] 97 mmol/L Low 98-108 [facility] Emergency Department Summary on 02-18-2025 Emergency Department Summary Normal [facility] Eosinophil percentageOrdered By: Billy Kothari on 02-18-2025 Eosinophils/100 WBC (Bld) 1.0 % 0-5 [facility] Erythrocyte distribution wid th ratioOrdered By: Billy Kothari on 02-18-2025 Erythrocyte distribution width (RBC) [Ratio] 15.9 % High 11.6-14.6 [facility] Erythrocyte distribution wid th standard deviationOrdered By: Billy Kothari on 02-18-2025 Erythrocyte distribution width (RBC) [Ratio] 52.1 fl High 35.1-43.9 [facility] Glomerular filtration rate ( GFR) estimation/1.73 sq m using serum, plasma, or whole bOrdered By: Billy Kothari on 02-18-2025 GFR/1.73 sq M.predicted among non-blacks MDRD (S/P/Bld) [Vol rate/Area] 43 mL/min/{1.73_m2} Low >60 [facility] Hematocrit Auto (Bld) [Volum e fraction]Ordered By: Billy Kothari on 02-18-2025 Hematocrit (Bld) [Volume fraction] 35.8 % Low 37-47 [facility] Hemoglobin measurementOrdere d By: Billy Kothari on 02-18-2025 Hemoglobin (Bld) [Mass/Vol] 10.9 g/dL Low 12.0-15.0 [facility] Immature granulocytes/100 WB C Auto (Bld)Ordered By: Billy Kothari on 02-18-2025 Immature granulocytes/100 WBC (Bld) 0.900 % 0.0-0.9 [facility] L503.7505on 02-18-2025 Natriuretic peptide B (Bld) [Mass/Vol] 3811 pg/mL High <=1800 [facility] Comment on above: Result Comment: Hear t Failure Unlikely: < 300 pg/mLHeart Failure Likely< 50 Years: > 450 pg/mL50-75 Years: > 900 pg/mL>75 Years: > 1800 pg/mL Performed By: #### L 503.7505 ####[facility] [address] [place], [address] MCV (mean corpuscular volume ) determinationOrdered By: Billy Kothari on 02-18-2025 MCV (RBC) [Entitic vol] 91.6 fL 81-99 [facility] Mean corpuscular hemoglobin (MCH) determinationOrdered By: Billy Kothari on 02-18-2025 MCH (RBC) [Entitic mass] 27.9 pg 27.0-32.0 [facility] Monocyte percentageOrdered B y: Billy Kothari on 02-18-2025 Monocytes/100 WBC (Bld) 6.7 % 0-10 [facility] Natriuretic peptide.B prohor hayley N-Terminal [Mass/volume] in Serum or PlasmaOrdered By: Billy Kothari on 02-18-2025 Natriuretic peptide.B prohormone N-Terminal [Mass/Vol] 3811 pg/mL High <1800 [facility] Neutrophil percentageOrdered By: Billy Kothari on 02-18-2025 Neutrophils/100 WBC (Bld) 78.7 % High 47-70 [facility] Platelet countOrdered By: Dante Kothari on 02-18-2025 Platelets (Bld) [#/Vol] 337 10*3/uL 150-450 [facility] Potassiumon 02-18-2025 Potassium [Moles/Vol] 4.7 mmol/L Normal 3.3-5.1 [facility] Comment on above: Performed By: #### L 501.5600 ####[facility] [address] [place], [address] Potassium measurement (mass/ volume)Ordered By: Billy Kothari on 02-18-2025 Potassium (Unsp spec) [Mass/Vol] 4.7 mmol/L 3.3-5.1 [facility] RBC Auto (Bld) [#/Vol]Ordere d By: Billy Kothari on 02-18-2025 RBC (Bld) [#/Vol] 3.91 10*6/uL Low 4.2-5.4 [facility] Respiratory Cultureon 2024 RESPC Mixed normal respiratory karin. No Streptococcus pneumoniae, beta-hemolytic Streptococcus or Staphylococcus aureus isolated. Normal [facility] Comment on above: Performed By: #### M 100.2000, M100.2400 ####[facility] [address] [place], [address] Serum creatinine measurement (mass/volume)Ordered By: Billy Kothari on 02-18-2025 Creatinine [Mass/Vol] 1.26 mg/dL High 0.70-1.20 [facility] Serum glucose measurement (m ass/volume)Ordered By: Billy Kothari on 02-18-2025 Glucose [Mass/Vol] 174 mg/dL High 70-99 [facility] Serum or plasma calcium melanie urement (mass/volume)Ordered By: Billy Kothari on 02-18-2025 Calcium [Mass/Vol] 10.7 mg/dL 7.6-11.0 [facility] Serum or plasma urea nitroge n measurement (mass/volume)Ordered By: Billy Kothari on 02-18-2025 Urea nitrogen [Mass/Vol] 25 mg/dL High 4-19 [facility] Sodium levelOrdered By: Billy Kothari on 02-18-2025 Sodium [Moles/Vol] 136 mmol/L 133-145 [facility] White blood cell (WBC) count Ordered By: Billy Kothari on 02-18-2025 WBC (Bld) [#/Vol] 12.2 10*3/uL High 4.4-11.0 [facility] Absolute lymphocyte countOrd ered By: Heydi Amaya on 02-17-2025 Lymphocytes Auto (Unsp spec) [#/Vol] 0.58 10*3/uL Low 0.83-4.51 [facility] Anion gap in Serum or Plasma Ordered By: Heydi Amaya on 02-17-2025 Anion gap [Moles/Vol] 12 mmol/L 5-15 [facility] Automated lymphocyte count a s percentage of total leukocytesOrdered By: Heydi Amaya on 02-17-2025 Lymphocytes/100 WBC Auto (Unsp spec) 7.8 % Low 19-41 [facility] BUN/creatinine ratioOrdered By: Heydi Amaya on 02-17-2025 Urea nitrogen/Creatinine [Mass ratio] 23.0 mg/mg High 10- [facility] Basic Metabolic Profile (BMP )on 02-17-2025 BUN/CRE 23.0 RATIO High - [facility] Comment on above: Performed By: #### L 500.2500, L100.0100 ####[facility] [address] [place], [place], [address] Calcium [Mass/Vol] 10.3 mg/dL Normal 7.6-11.0 [facility] Comment on above: Performed By: #### L 500.2500, L100.0100 ####[facility] [address] [place], [address] Chloride [Moles/Vol] 98 mmol/L Normal 98-108 [facility] Comment on above: Performed By: #### L 500.2500, L100.0100 ####[facility] [address] [place], [address] CO2 [Moles/Vol] 23.5 mmol/L Normal 21.0-32.0 [facility] Comment on above: Performed By: #### L 500.2500, L100.0100 ####[facility] [address] [place], [address] Creatinine [Mass/Vol] 1.15 mg/dL Normal 0.70-1.20 [facility] Comment on above: Performed By: #### L 500.2500, L100.0100 ####[facility] [address] [place], [address] ECRCL 37.29 ml/min Low 50-250 [facility] Comment on above: Performed By: #### L 500.2500, L100.0100 ####[facility] [address] [place], [address] GAP 12 Normal 5-15 [facility] Comment on above: Performed By: #### L 500.2500, L100.0100 ####[facility] [address] [place], [address] GFR/1.73 sq M.predicted among non-blacks MDRD (S/P/Bld) [Vol rate/Area] 48 mL/min/{1.73_m2} Low >60 [facility] Comment on above: Result Comment: mL/m in/1.73m2 CKD-EPI Creatinine Equation (2020) Performed By: #### L 500.2500, L100.0100 ####[facility] [address] [place], [address] Glucose [Mass/Vol] 426 mg/dL High 70-99 [facility] Comment on above: Performed By: #### L 500.2500, L100.0100 ####[facility] [address] [place], [address] Potassium [Moles/Vol] 5.3 mmol/L High 3.3-5.1 [facility] Comment on above: Performed By: #### L 500.2500, L100.0100 ####[facility] [address] [place], [address] Sodium [Moles/Vol] 134 mmol/L Normal 133-145 [facility] Comment on above: Performed By: #### L 500.2500, L100.0100 ####[facility] [address] [place], [address] Urea nitrogen [Mass/Vol] 27 mg/dL High 4-19 [facility] Comment on above: Performed By: #### L 500.2500, L100.0100 ####[facility] [address] [place], [address] Basophil percentageOrdered B y: Heydi Amaya on 02-17-2025 Basophils/100 WBC (Bld) 0.1 % 0-1 [facility] Bedside Glucoseon 02-17-2024 FINGERSTICK GLU 241 mg/dL High 74-106 [facility] Comment on above: Result Comment: KATARINA GEMENT OF PATIENT CARE PER NURSING PROTOCOL Performed By: #### L 501.080 ####[facility] [address] [place], [address] FINGERSTICK GLU 419 mg/dL High 74-106 [facility] Comment on above: Result Comment: KATARINA GEMENT OF PATIENT CARE PER NURSING PROTOCOL Performed By: #### L 501.080 ####[facility] [address] [place], [address] FINGERSTICK GLU 488 mg/dL Invalid Interpretation Code 74-106 [facility] Comment on above: Result Comment: KATARINA GEMENT OF PATIENT CARE PER NURSING PROTOCOL Performed By: #### L 501.080 ####[facility] [address] [place], [address] CBC W/Diff, Automatedon 06-2 0-2024 Absolute Lymph 0.58 X10 3/uL Low 0.83-4.51 [facility] Comment on above: Performed By: #### L 500.2500, L100.0100 ####[facility] [address] [place], [address] Absolute Neut 6.4 X10 3/uL Normal 2.0-7.7 [facility] Comment on above: Performed By: #### L 500.2500, L100.0100 ####[facility] [address] [place], [address] Basophils/100 WBC (Bld) 0.1 % Normal 0-1 [facility] Comment on above: Performed By: #### L 500.2500, L100.0100 ####[facility] [address] [place], [address] Eosinophils/100 WBC (Bld) 0.1 % Normal 0-5 [facility] Comment on above: Performed By: #### L 500.2500, L100.0100 ####[facility] [address] [place], [address] Erythrocyte distribution width (RBC) [Ratio] 15.6 % High 11.6-14.6 [facility] Comment on above: Performed By: #### L 500.2500, L100.0100 ####[facility] [address] [place], [address] Hematocrit (Bld) [Volume fraction] 32.6 % Low 37-47 [facility] Comment on above: Performed By: #### L 500.2500, L100.0100 ####[facility] [address] [place], [address] Hemoglobin (Bld) [Mass/Vol] 9.9 g/dL Low 12.0-15.0 [facility] Comment on above: Performed By: #### L 500.2500, L100.0100 ####[facility] [address] [place], [address] IG% 0.900 Normal 0.0-0.9 [facility] Comment on above: Result Comment: IG% - Immature Granulocytes (promyelocytes, myelocytes andmetamyelocytes) > 1% indicates that a LEFT SHIFT is Present. Performed By: #### L 500.2500, L100.0100 ####[facility] [address] [place], [address] Lymphocytes/100 WBC (Bld) 7.8 % Low 19-41 [facility] Comment on above: Performed By: #### L 500.2500, L100.0100 ####[facility] [address] [place], [address] MCH (RBC) [Entitic mass] 27.7 pg Normal 27.0-32.0 [facility] Comment on above: Performed By: #### L 500.2500, L100.0100 ####[facility] [address] [place], [address] MCHC (RBC) [Mass/Vol] 30.4 g/dL Low 32-36 [facility] Comment on above: Performed By: #### L 500.2500, L100.0100 ####[facility] [address] [place], [address] MCV (RBC) [Entitic vol] 91.3 fL Normal 81-99 [facility] Comment on above: Performed By: #### L 500.2500, L100.0100 ####[facility] [address] [place], [address] Monocytes/100 WBC (Bld) 5.0 % Normal 0-10 [facility] Comment on above: Performed By: #### L 500.2500, L100.0100 ####[facility] [address] [place], [address] Neutrophils/100 WBC (Bld) 86.1 % High 47-70 [facility] Comment on above: Performed By: #### L 500.2500, L100.0100 ####[facility] [address] [place], [address] Nucleated RBC (Bld) [#/Vol] 0 10*3/uL Normal 0-5 [facility] Comment on above: Performed By: #### L 500.2500, L100.0100 ####[facility] [address] [place], [address] Platelet mean volume (Bld) [Entitic vol] 11.2 fL Normal 6.2-12.0 [facility] Comment on above: Performed By: #### L 500.2500, L100.0100 ####[facility] [address] [place], [address] Platelets (Bld) [#/Vol] 246 10*3/uL Normal 150-450 [facility] Comment on above: Performed By: #### L 500.2500, L100.0100 ####[facility] [address] [place], [address] RBC (Bld) [#/Vol] 3.57 10*6/uL Low 4.2-5.4 [facility] Comment on above: Performed By: #### L 500.2500, L100.0100 ####[facility] [address] [place], [address] RDW SD 51.5 fl High 35.1-43.9 [facility] Comment on above: Performed By: #### L 500.2500, L100.0100 ####[facility] [address] [place], [address] WBC (Bld) [#/Vol] 7.5 10*3/uL Normal 4.4-11.0 [facility] Comment on above: Performed By: #### L 500.2500, L100.0100 ####[facility] [address] [place], [address] Carbon dioxide, total [Moles /volume] in Central venous bloodOrdered By: Heydi Amaya on 02-17-2025 CO2 [Moles/Vol] 23.5 mmol/L 21.0-32.0 [facility] Chloride assayOrdered By: Davy Amaya on 02-17-2025 Chloride [Moles/Vol] 98 mmol/L 98-108 [facility] Electrocardiogram reportOrde red By: Marcelina Soto on 02-17-2025 EKG study [facility] Work Phone: [phone] Eosinophil percentageOrdered By: Heydi Amaya on 02-17-2025 Eosinophils/100 WBC (Bld) 0.1 % 0-5 [facility] Erythrocyte distribution wid th ratioOrdered By: Heydi Amaya on 02-17-2025 Erythrocyte distribution width (RBC) [Ratio] 15.6 % High 11.6-14.6 [facility] Erythrocyte distribution wid th standard deviationOrdered By: Heydi Amaya on 02-17-2025 Erythrocyte distribution width (RBC) [Ratio] 51.5 fl High 35.1-43.9 [facility] Glomerular filtration rate ( GFR) estimation/1.73 sq m using serum, plasma, or whole bOrdered By: Heydi Amaya on 02-17-2025 GFR/1.73 sq M.predicted among non-blacks MDRD (S/P/Bld) [Vol rate/Area] 48 mL/min/{1.73_m2} Low >60 [facility] deOrdered By: Heydi Amaya on 02-17-2025 Glucose [Mass/Vol] 241 mg/dL High 74-106 [facility] Hematocrit Auto (Bld) [Volum e fraction]Ordered By: Heydi Amaya on 02-17-2025 Hematocrit (Bld) [Volume fraction] 32.6 % Low 37-47 [facility] Hemoglobin measurementOrdere d By: Heydi Amaya on 02-17-2025 Hemoglobin (Bld) [Mass/Vol] 9.9 g/dL Low 12.0-15.0 [facility] Immature granulocytes/100 WB C Auto (Bld)Ordered By: Heydi Amaya on 02-17-2025 Immature granulocytes/100 WBC (Bld) 0.900 % 0.0-0.9 [facility] MCV (mean corpuscular volume ) determinationOrdered By: Heydi Amaya on 02-17-2025 MCV (RBC) [Entitic vol] 91.3 fL 81-99 [facility] Mean corpuscular hemoglobin (MCH) determinationOrdered By: Heydi Amaya on 02-17-2025 MCH (RBC) [Entitic mass] 27.7 pg 27.0-32.0 [facility] Monocyte percentageOrdered B y: Heydi Amaya on 02-17-2025 Monocytes/100 WBC (Bld) 5.0 % 0-10 [facility] Neutrophil percentageOrdered By: Heydi Amaya on 02-17-2025 Neutrophils/100 WBC (Bld) 86.1 % High 47-70 [facility] Platelet countOrdered By: Davy Amaya on 02-17-2025 Platelets (Bld) [#/Vol] 246 10*3/uL 150-450 [facility] Potassium measurement (mass/ volume)Ordered By: Heydi Amaya on 02-17-2025 Potassium (Unsp spec) [Mass/Vol] 5.3 mmol/L High 3.3-5.1 [facility] RBC Auto (Bld) [#/Vol]Ordere d By: Heydi Amaya on 02-17-2025 RBC (Bld) [#/Vol] 3.57 10*6/uL Low 4.2-5.4 [facility] Serum creatinine measurement (mass/volume)Ordered By: Heydi Amaya on 02-17-2025 Creatinine [Mass/Vol] 1.15 mg/dL 0.70-1.20 [facility] Serum glucose measurement (m ass/volume)Ordered By: Heydi Amaya on 02-17-2025 Glucose [Mass/Vol] 426 mg/dL High 70-99 [facility] Serum or plasma calcium melanie urement (mass/volume)Ordered By: Heydi Amaya on 02-17-2025 Calcium [Mass/Vol] 10.3 mg/dL 7.6-11.0 [facility] Serum or plasma urea nitroge n measurement (mass/volume)Ordered By: Heydi Amaya on 02-17-2025 Urea nitrogen [Mass/Vol] 27 mg/dL High 12-17 [facility] Sodium levelOrdered By: Rodolfo Amaya on 02-17-2025 Sodium [Moles/Vol] 134 mmol/L 133-145 [facility] White blood cell (WBC) count Ordered By: Heydi Amaya on 02-17-2025 WBC (Bld) [#/Vol] 7.5 10*3/uL 4.4-11.0 [facility] Basic Metabolic Profile (BMP )on 02-16-2025 BUN/CRE 22.0 RATIO High 06-19 [facility] Comment on above: Performed By: #### L 500.2500, L100.0500 ####[facility] [address] [place], [address] Calcium [Mass/Vol] 10.7 mg/dL Normal 7.6-11.0 [facility] Comment on above: Performed By: #### L 500.2500, L100.0500 ####[facility] [address] [place], [address] Chloride [Moles/Vol] 97 mmol/L Low 98-108 [facility] Comment on above: Performed By: #### L 500.2500, L100.0500 ####[facility] [address] [place], [address] CO2 [Moles/Vol] 29.5 mmol/L Normal 21.0-32.0 [facility] Comment on above: Performed By: #### L 500.2500, L100.0500 ####[facility] [address] [place], [address] Creatinine [Mass/Vol] 0.97 mg/dL Normal 0.70-1.20 [facility] Comment on above: Performed By: #### L 500.2500, L100.0500 ####[facility] [address] [place], [address] ECRCL 44.69 ml/min Low 50-250 [facility] Comment on above: Performed By: #### L 500.2500, L100.0500 ####[facility] [address] [place], [address] GAP 12 Normal 5-15 [facility] Comment on above: Performed By: #### L 500.2500, L100.0500 ####[facility] [address] [place], [address] GFR/1.73 sq M.predicted among non-blacks MDRD (S/P/Bld) [Vol rate/Area] 58 mL/min/{1.73_m2} Low >60 [facility] Comment on above: Result Comment: mL/m in/1.73m2 CKD-EPI Creatinine Equation (2020) Performed By: #### L 500.2500, L100.0500 ####[facility] [address] [place], [address] Glucose [Mass/Vol] 98 mg/dL Normal 70-99 [facility] Comment on above: Performed By: #### L 500.2500, L100.0500 ####[facility] [address] [place], [address] Potassium [Moles/Vol] 4.7 mmol/L Normal 3.3-5.1 [facility] Comment on above: Performed By: #### L 500.2500, L100.0500 ####[facility] [address] [place], [address] Sodium [Moles/Vol] 138 mmol/L Normal 133-145 [facility] Comment on above: Performed By: #### L 500.2500, L100.0500 ####[facility] [address] [place], [address] Urea nitrogen [Mass/Vol] 21 mg/dL High -19 [facility] Comment on above: Performed By: #### L 500.2500, L100.0500 ####[facility] [address] [place], [address] Bedside Glucoseon 02-16-2025 FINGERSTICK GLU 254 mg/dL High 74-106 [facility] Comment on above: Result Comment: KATARINA GEMENT OF PATIENT CARE PER NURSING PROTOCOL Performed By: #### L 501.080 ####[facility] [address] [place], [address] FINGERSTICK GLU 234 mg/dL High 74-106 [facility] Comment on above: Result Comment: KATARINA GEMENT OF PATIENT CARE PER NURSING PROTOCOL Performed By: #### L 501.080 ####[facility] [address] [place], [address] FINGERSTICK GLU 91 mg/dL Normal 74-106 [facility] Comment on above: Result Comment: KATARINA GEMENT OF PATIENT CARE PER NURSING PROTOCOL Performed By: #### L 501.080 ####[facility] [address] [place], [address] FINGERSTICK GLU 63 mg/dL Low 74-106 [facility] Comment on above: Result Comment: KATARINA GEMENT OF PATIENT CARE PER NURSING PROTOCOL Performed By: #### L 501.080 ####[facility] [address] [place], [address] CBC-Complete Blood Cnt No Di ffon 02-16-2025 Erythrocyte distribution width (RBC) [Ratio] 16.1 % High 11.6-14.6 [facility] Comment on above: Performed By: #### L 500.2500, L100.0500 ####[facility] [address] [place], [address] Hematocrit (Bld) [Volume fraction] 36.2 % Low 37-47 [facility] Comment on above: Performed By: #### L 500.2500, L100.0500 ####[facility] [address] [place], [address] Hemoglobin (Bld) [Mass/Vol] 11.0 g/dL Low 12.0-15.0 [facility] Comment on above: Performed By: #### L 500.2500, L100.0500 ####[facility] [address] [place], [address] MCH (RBC) [Entitic mass] 27.4 pg Normal 27.0-32.0 [facility] Comment on above: Performed By: #### L 500.2500, L100.0500 ####[facility] [address] [place], [address] MCHC (RBC) [Mass/Vol] 30.4 g/dL Low 32-36 [facility] Comment on above: Performed By: #### L 500.2500, L100.0500 ####[facility] [address] [place], [address] MCV (RBC) [Entitic vol] 90.0 fL Normal 81-99 [facility] Comment on above: Performed By: #### L 500.2500, L100.0500 ####[facility] [address] [place], [address] Platelet mean volume (Bld) [Entitic vol] 11.0 fL Normal 6.2-12.0 [facility] Comment on above: Performed By: #### L 500.2500, L100.0500 ####[facility] [address] [place], [address] Platelets (Bld) [#/Vol] 250 10*3/uL Normal 150-450 [facility] Comment on above: Performed By: #### L 500.2500, L100.0500 ####[facility] [address] [place], [address] RBC (Bld) [#/Vol] 4.02 10*6/uL Low 4.2-5.4 [facility] Comment on above: Performed By: #### L 500.2500, L100.0500 ####[facility] [address] [place], [address] RDW SD 52.3 fl High 35.1-43.9 [facility] Comment on above: Performed By: #### L 500.2500, L100.0500 ####[facility] [address] [place], [address] WBC (Bld) [#/Vol] 9.2 10*3/uL Normal 4.4-11.0 [facility] Comment on above: Performed By: #### L 500.2500, L100.0500 ####[facility] [address] [place], [address] Gram Stainon 02-16-2025 GS Acceptable Specimen? Yes (<25 Epithelial cells per/lpf) Gram Stain Rare Gram positive cocci Rare Gram positive rods No Epithelial cells Rare White Blood Cells Normal [facility] Comment on above: Performed By: #### M 100.2000, M100.2400 ####[facility] [address] [place], [place], [address] Gram stainOrdered By: Ankit Jean-Baptiste on 02-16-2025 Microscopic observation Gram stain Nom (Unsp spec) [facility] Microbial respiratory cultur eOrdered By: Nestor Bartlett on 02-16-2025 Microorganism identified Cx Nom (Unsp spec) or Staphylococcus aureus isolated. [facility] 12 Lead EKGon 02-15-2025 12 Lead EKG Normal [facility] Absolute lymphocyte countOrd ered By: Remus Allison on 02-15-2025 Lymphocytes Auto (Unsp spec) [#/Vol] 0.98 10*3/uL 0.83-4.51 [facility] Anion gap in Serum or Plasma Ordered By: Remus Keegan on 02-15-2025 Anion gap [Moles/Vol] 9 mmol/L 5-15 [facility] Automated lymphocyte count a s percentage of total leukocytesOrdered By: Remus Keegan on 02-15-2025 Lymphocytes/100 WBC Auto (Unsp spec) 10.9 % Low 19-41 [facility] BUN/creatinine ratioOrdered By: Remus Keegan on 02-15-2025 Urea nitrogen/Creatinine [Mass ratio] 23.1 mg/mg High 10-20 [facility] Basic Metabolic Profile (BMP )on 02-15-2025 BUN/CRE 23.1 RATIO High 10-20 [facility] Comment on above: Performed By: #### L 500.2500, L503.7505, L501.4021, L100.0100 ####[facility] [address] [place], [address] Calcium [Mass/Vol] 10.7 mg/dL Normal 7.6-11.0 [facility] Comment on above: Performed By: #### L 500.2500, L503.7505, L501.4021, L100.0100 ####[facility] [address] [place], [address] Chloride [Moles/Vol] 98 mmol/L Normal 98-108 [facility] Comment on above: Performed By: #### L 500.2500, L503.7505, L501.4021, L100.0100 ####[facility] [address] [place], [address] CO2 [Moles/Vol] 30.9 mmol/L Normal 21.0-32.0 [facility] Comment on above: Performed By: #### L 500.2500, L503.7505, L501.4021, L100.0100 ####[facility] [address] [place], [address] Creatinine [Mass/Vol] 1.04 mg/dL Normal 0.70-1.20 [facility] Comment on above: Performed By: #### L 500.2500, L503.7505, L501.4021, L100.0100 ####[facility] [address] [place], [address] ECRCL 41.98 ml/min Low 50-250 [facility] Comment on above: Performed By: #### L 500.2500, L503.7505, L501.4021, L100.0100 ####[facility] [address] [place], [address] GAP 9 Normal 5-15 [facility] Comment on above: Performed By: #### L 500.2500, L503.7505, L501.4021, L100.0100 ####[facility] [address] [place], [address] GFR/1.73 sq M.predicted among non-blacks MDRD (S/P/Bld) [Vol rate/Area] 54 mL/min/{1.73_m2} Low >60 [facility] Comment on above: Result Comment: mL/m in/1.73m2 CKD-EPI Creatinine Equation (2020) Performed By: #### L 500.2500, L503.7505, L501.4021, L100.0100 ####[facility] [address] [place], [address] Glucose [Mass/Vol] 97 mg/dL Normal 70-99 [facility] Comment on above: Performed By: #### L 500.2500, L503.7505, L501.4021, L100.0100 ####[facility] [address] [place], [address] Potassium [Moles/Vol] 4.3 mmol/L Normal 3.3-5.1 [facility] Comment on above: Performed By: #### L 500.2500, L503.7505, L501.4021, L100.0100 ####[facility] [address] [place], [address] Sodium [Moles/Vol] 138 mmol/L Normal 133-145 [facility] Comment on above: Performed By: #### L 500.2500, L503.7505, L501.4021, L100.0100 ####[facility] [address] [place], [address] Urea nitrogen [Mass/Vol] 24 mg/dL High 4-19 [facility] Comment on above: Performed By: #### L 500.2500, L503.7505, L501.4021, L100.0100 ####[facility] [address] [place], [address] Basophil percentageOrdered B y: Remus Ungur on 02-15-2025 Basophils/100 WBC (Bld) 0.1 % 0-1 [facility] Bedside Glucoseon 02-15-2025 FINGERSTICK GLU 152 mg/dL High 74-106 [facility] Comment on above: Result Comment: KATARINA GEMENT OF PATIENT CARE PER NURSING PROTOCOL Performed By: #### L 501.080 ####[facility] [address] [place], [address] FINGERSTICK GLU 80 mg/dL Normal 74-106 [facility] Comment on above: Result Comment: KATARINA GEMENT OF PATIENT CARE PER NURSING PROTOCOL Performed By: #### L 501.080 ####[facility] [address] [place], [address] CBC W/Diff, Automatedon - Absolute Lymph 0.98 X10 3/uL Normal 0.83-4.51 [facility] Comment on above: Performed By: #### L 500.2500, L503.7505, L501.4021, L100.0100 ####[facility] [address] [place], [address] Absolute Neut 7.5 X10 3/uL Normal 2.0-7.7 [facility] Comment on above: Performed By: #### L 500.2500, L503.7505, L501.4021, L100.0100 ####[facility] [address] [place], [address] Basophils/100 WBC (Bld) 0.1 % Normal 0-1 [facility] Comment on above: Performed By: #### L 500.2500, L503.7505, L501.4021, L100.0100 ####[facility] [address] [place], [address] Eosinophils/100 WBC (Bld) 0.7 % Normal 0-5 [facility] Comment on above: Performed By: #### L 500.2500, L503.7505, L501.4021, L100.0100 ####[facility] [address] [place], [address] Erythrocyte distribution width (RBC) [Ratio] 16.2 % High 11.6-14.6 [facility] Comment on above: Performed By: #### L 500.2500, L503.7505, L501.4021, L100.0100 ####[facility] [address] [place], [address] Hematocrit (Bld) [Volume fraction] 33.5 % Low 37-47 [facility] Comment on above: Performed By: #### L 500.2500, L503.7505, L501.4021, L100.0100 ####[facility] [address] [place], [address] Hemoglobin (Bld) [Mass/Vol] 10.1 g/dL Low 12.0-15.0 [facility] Comment on above: Performed By: #### L 500.2500, L503.7505, L501.4021, L100.0100 ####[facility] [address] [place], [address] IG% 1.000 High 0.0-0.9 [facility] Comment on above: Result Comment: IG% - Immature Granulocytes (promyelocytes, myelocytes andmetamyelocytes) > 1% indicates that a LEFT SHIFT is Present. Performed By: #### L 500.2500, L503.7505, L501.4021, L100.0100 ####[facility] [address] [place], [address] Lymphocytes/100 WBC (Bld) 10.9 % Low 19-41 [facility] Comment on above: Performed By: #### L 500.2500, L503.7505, L501.4021, L100.0100 ####[facility] [address] [place], [address] MCH (RBC) [Entitic mass] 27.0 pg Normal 27.0-32.0 [facility] Comment on above: Performed By: #### L 500.2500, L503.7505, L501.4021, L100.0100 ####[facility] [address] [place], [address] MCHC (RBC) [Mass/Vol] 30.1 g/dL Low 32-36 [facility] Comment on above: Performed By: #### L 500.2500, L503.7505, L501.4021, L100.0100 ####[facility] [address] [place], [address] MCV (RBC) [Entitic vol] 89.6 fL Normal 81-99 [facility] Comment on above: Performed By: #### L 500.2500, L503.7505, L501.4021, L100.0100 ####[facility] [address] [place], [address] Monocytes/100 WBC (Bld) 4.8 % Normal 0-10 [facility] Comment on above: Performed By: #### L 500.2500, L503.7505, L501.4021, L100.0100 ####[facility] [address] [place], [address] Neutrophils/100 WBC (Bld) 82.5 % High 47-70 [facility] Comment on above: Performed By: #### L 500.2500, L503.7505, L501.4021, L100.0100 ####[facility] [address] [place], [address] Nucleated RBC (Bld) [#/Vol] 0 10*3/uL Normal 0-5 [facility] Comment on above: Performed By: #### L 500.2500, L503.7505, L501.4021, L100.0100 ####[facility] [address] [place], [address] Platelet mean volume (Bld) [Entitic vol] 10.4 fL Normal 6.2-12.0 [facility] Comment on above: Performed By: #### L 500.2500, L503.7505, L501.4021, L100.0100 ####[facility] [address] [place], [address] Platelets (Bld) [#/Vol] 243 10*3/uL Normal 150-450 [facility] Comment on above: Performed By: #### L 500.2500, L503.7505, L501.4021, L100.0100 ####[facility] [address] [place], [address] RBC (Bld) [#/Vol] 3.74 10*6/uL Low 4.2-5.4 [facility] Comment on above: Performed By: #### L 500.2500, L503.7505, L501.4021, L100.0100 ####[facility] [address] [place], [address] RDW SD 52.9 fl High 35.1-43.9 [facility] Comment on above: Performed By: #### L 500.2500, L503.7505, L501.4021, L100.0100 ####[facility] [address] [place], [address] WBC (Bld) [#/Vol] 9.0 10*3/uL Normal 4.4-11.0 [facility] Comment on above: Performed By: #### L 500.2500, L503.7505, L501.4021, L100.0100 ####[facility] [address] [place], [address] Carbon dioxide, total [Moles /volume] in Central venous bloodOrdered By: Robert Allison on 02-15-2025 CO2 [Moles/Vol] 30.9 mmol/L 21.0-32.0 [facility] Chest 1 View (Portable)on Chest 1 View (Portable) Normal [facility] Chloride assayOrdered By: Ester Allison on 02-15-2025 Chloride [Moles/Vol] 98 mmol/L 98-108 [facility] Emergency Department Summary on 02-15-2025 Emergency Department Summary Normal [facility] Eosinophil percentageOrdered By: Robert Allison on 02-15-2025 Eosinophils/100 WBC (Bld) 0.7 % 0-5 [facility] Erythrocyte distribution wid th ratioOrdered By: Robert Allison on 02-15-2025 Erythrocyte distribution width (RBC) [Ratio] 16.2 % High 11.6-14.6 [facility] Erythrocyte distribution wid th standard deviationOrdered By: Robert Allison on 02-15-2025 Erythrocyte distribution width (RBC) [Ratio] 52.9 fl High 35.1-43.9 [facility] Glomerular filtration rate ( GFR) estimation/1.73 sq m using serum, plasma, or whole bOrdered By: Robert Allison on 02-15-2025 GFR/1.73 sq M.predicted among non-blacks MDRD (S/P/Bld) [Vol rate/Area] 54 mL/min/{1.73_m2} Low >60 [facility] H AND P Exam - Hospitaliston 02-15-2025 H&P Exam - Hospitalist Normal [facility] Hematocrit Auto (Bld) [Volum e fraction]Ordered By: Robert Allison on 02-15-2025 Hematocrit (Bld) [Volume fraction] 33.5 % Low 37-47 [facility] Hemoglobin measurementOrdere d By: Robert Allison on 02-15-2025 Hemoglobin (Bld) [Mass/Vol] 10.1 g/dL Low 12.0-15.0 [facility] Immature granulocytes/100 WB C Auto (Bld)Ordered By: Robert Allison on 02-15-2025 Immature granulocytes/100 WBC (Bld) 1.000 % High 0.0-0.9 [facility] L499.0042on 02-15-2025 Trop T High Sen 113 ng/L Invalid Interpretation Code <=14 [facility] Comment on above: Result Comment: Crit ical Result(s) Called at: 02/15/2025-13:14 by: Pat Smiley.??Results read back by same. Performed By: #### L 499.0042 ####[facility] [address] [place], [address] L499.0043on 02-15-2025 Trop T High Sen 114 ng/L Invalid Interpretation Code <=14 [facility] Comment on above: Result Comment: Hemo lysis present, Results??could be affected.??CRIT CALLED BY ARCHIE MIXON TO JESSICA MOE AT 1607Critical Result(s) Called at: by:??Results read back bysame. Performed By: #### L 499.0043 ####[facility] [address] [place], [address] L501.4021on 02-15-2025 Trop T High Sen 117 ng/L Invalid Interpretation Code <=14 [facility] Comment on above: Result Comment: Crit ical Result(s) Called at:02/15/2025-11:47 by: Pat to Quin Lopez.??Results read back by same. Performed By: #### L 500.2500, L503.7505, L501.4021, L100.0100 ####[facility] [address] [place], [address] L503.7505on 02-15-2025 Natriuretic peptide B (Bld) [Mass/Vol] 4408 pg/mL High <=1800 [facility] Comment on above: Result Comment: Hear t Failure Unlikely: < 300 pg/mLHeart Failure Likely< 50 Years: > 450 pg/mL50-75 Years: > 900 pg/mL>75 Years: > 1800 pg/mL Performed By: #### L 500.2500, L503.7505, L501.4021, L100.0100 ####[facility] [address] [place], [address] L509.7001on 02-15-2025 Procalcitonin 0.27 ng/mL High <=0.10 [facility] Comment on above: Result Comment: Inte rpretation:<0.10-0.25 ng/mL: Antibiotic therapy discouraged. Bacterialinfection unlikely.0.25-0.50 ng/mL: Antibiotic therapy encouraged. Bacterialinfection possible.>0.50 ng/mL: Antibiotic therapy strongly encouraged.Suggestive of presence of bacterial infection.PCT should always be interpreted in the clinical context ofthe patient. Therefore, clinicians should use the PCTresults in conjunction with other laboratory findings andclinical signs of the patient. Performed By: #### L 509.7001 ####[facility] [address] [place], [address] MCV (mean corpuscular volume ) determinationOrdered By: Robert Allison on 02-15-2025 MCV (RBC) [Entitic vol] 89.6 fL 81-99 [facility] Mean corpuscular hemoglobin (MCH) determinationOrdered By: Robert Allison on 02-15-2025 MCH (RBC) [Entitic mass] 27.0 pg 27.0-32.0 [facility] Monocyte percentageOrdered B y: Robert Allison on 02-15-2025 Monocytes/100 WBC (Bld) 4.8 % 0-10 [facility] Natriuretic peptide.B prohor hayley N-Terminal [Mass/volume] in Serum or PlasmaOrdered By: Robert Allison on 02-15-2025 Natriuretic peptide.B prohormone N-Terminal [Mass/Vol] 4408 pg/mL High <1800 [facility] Neutrophil percentageOrdered By: Robert Allison on 02-15-2025 Neutrophils/100 WBC (Bld) 82.5 % High 47-70 [facility] Platelet countOrdered By: Ester Allison on 02-15-2025 Platelets (Bld) [#/Vol] 243 10*3/uL 150-450 [facility] Potassium measurement (mass/ volume)Ordered By: Robert Allison on 02-15-2025 Potassium (Unsp spec) [Mass/Vol] 4.3 mmol/L 3.3-5.1 [facility] Procalcitonin [Mass/volume] in Serum or Plasma by ImmunoassayOrdered By: Nestor Bartlett on 02-15-2025 Procalcitonin IA [Mass/Vol] 0.27 ng/mL High <0.11 [facility] RBC Auto (Bld) [#/Vol]Ordere d By: Robert Allison on 02-15-2025 RBC (Bld) [#/Vol] 3.74 10*6/uL Low 4.2-5.4 [facility] Serum creatinine measurement (mass/volume)Ordered By: Robert Allison on 02-15-2025 Creatinine [Mass/Vol] 1.04 mg/dL 0.70-1.20 [facility] Serum glucose measurement (m ass/volume)Ordered By: Robert Allison on 02-15-2025 Glucose [Mass/Vol] 97 mg/dL 70-99 [facility] Serum or plasma calcium melanie urement (mass/volume)Ordered By: Robert Allison on 02-15-2025 Calcium [Mass/Vol] 10.7 mg/dL 7.6-11.0 [facility] Serum or plasma urea nitroge n measurement (mass/volume)Ordered By: Robert Allison on 02-15-2025 Urea nitrogen [Mass/Vol] 24 mg/dL High 4-19 [facility] Sodium levelOrdered By: Lorena Allison on 02-15-2025 Sodium [Moles/Vol] 138 mmol/L 133-145 [facility] Troponin T.cardiac [Mass/vol ume] in Serum or Plasma by High sensitivity methodOrdered By: Robert Allison on 02-15-2025 Troponin T.cardiac High sensitivity method [Mass/Vol] 114 ng/L High <14 [facility] Troponin T.cardiac High sensitivity method [Mass/Vol] 113 ng/L High <14 [facility] Troponin T.cardiac High sensitivity method [Mass/Vol] 117 ng/L High <14 [facility] White blood cell (WBC) count Ordered By: Robert Allison on 02-15-2025 WBC (Bld) [#/Vol] 9.0 10*3/uL 4.4-11.0 [facility] Bedside Glucoseon 02-13-2025 FINGERSTICK GLU 337 mg/dL High 74-106 [facility] Comment on above: Result Comment: KATARINA GEMENT OF PATIENT CARE PER NURSING PROTOCOL Performed By: #### L 501.080 ####[facility] [address] [place], [address] FINGERSTICK GLU 302 mg/dL High 74-106 [facility] Comment on above: Result Comment: KATARINA GEMENT OF PATIENT CARE PER NURSING PROTOCOL Performed By: #### L 501.080 ####[facility] [address] [place], [address] Discharge Instructionon 01-29 Discharge Instruction Normal [facility] Gl[facility] at [facility] deOrdered By: Lucio Borden on 02-13-2025 Glucose [Mass/Vol] 337 mg/dL High 74-106 [facility] Bedside Glucoseon 02-12-2025 FINGERSTICK GLU 236 mg/dL High -106 [facility] Comment on above: Result Comment: KATARINA GEMENT OF PATIENT CARE PER NURSING PROTOCOL Performed By: #### L 501.080 ####[facility] [address] [place], [address] FINGERSTICK GLU 112 mg/dL High -[address] [place] [address] Comment on above: Result Comment: KATARINA GEMENT OF PATIENT CARE PER NURSING PROTOCOL Performed By: #### L 501.080 ####[facility] [address] [place], [address] FINGERSTICK GLU 471 mg/dL Invalid Interpretation Code [address] [place] [address] Comment on above: Result Comment: Dr Carina javier FollowedMANAGEMENT OF PATIENT CARE PER NURSING PROTOCOL Performed By: #### L 501.080 ####[facility] [address] [place], [address] FINGERSTICK GLU 492 mg/dL Invalid Interpretation Code [address] [place] [address] Comment on above: Result Comment: Repe at TestMANAGEMENT OF PATIENT CARE PER NURSING PROTOCOL Performed By: #### L 501.080 ####[facility] [address] [place], [address] FINGERSTICK GLU 243 mg/dL High 74-106 [facility] Comment on above: Result Comment: KATARINA GEMENT OF PATIENT CARE PER NURSING PROTOCOL Performed By: #### L 501.080 ####[facility] [address] [place], [address] FINGERSTICK GLU 312 mg/dL High [facility] Comment on above: Result Comment: KATARINA GEMENT OF PATIENT CARE PER NURSING PROTOCOL Performed By: #### L 501.080 ####[facility] [address] [facility] [address] FINGERSTICK GLU 246 mg/dL High [address] [place] [address] Comment on above: Result Comment: KATARINA GEMENT OF PATIENT CARE PER NURSING PROTOCOL Performed By: #### L 501.080 ####[facility] [address] [place], [address] Bedside Glucoseon 02-11-2025 FINGERSTICK GLU 276 mg/dL High [address] [place] [address] Comment on above: Result Comment: KATARINA GEMENT OF PATIENT CARE PER NURSING PROTOCOL Performed By: #### L 501.080 ####[facility] [address] [place], [address] FINGERSTICK GLU 124 mg/dL High [address] [place] [address] Comment on above: Result Comment: KATARINA GEMENT OF PATIENT CARE PER NURSING PROTOCOL Performed By: #### L 501.080 ####[facility] [address] [place], [address] FINGERSTICK GLU 257 mg/dL High [address] [place] [address] Comment on above: Result Comment: KATARINA GEMENT OF PATIENT CARE PER NURSING PROTOCOL Performed By: #### L 501.080 ####[facility] [address] [place], [address] FINGERSTICK GLU 305 mg/dL High [address] [place] [address] Comment on above: Result Comment: KATARINA GEMENT OF PATIENT CARE PER NURSING PROTOCOL Performed By: #### L 501.080 ####[facility] [address] [place], [address] FINGERSTICK GLU 242 mg/dL High 74-106 [facility] Comment on above: Result Comment: KATARINA GEMENT OF PATIENT CARE PER NURSING PROTOCOL Performed By: #### L 501.080 ####[facility] [address] [place], [address] FINGERSTICK GLU 206 mg/dL High 74-106 [facility] Comment on above: Result Comment: KATARINA GEMENT OF PATIENT CARE PER NURSING PROTOCOL Performed By: #### L 501.080 ####[facility] [address] [place], [address] Anion gap in Serum or Plasma Ordered By: Lucio Borden on 02-10-2025 Anion gap [Moles/Vol] 14 mmol/L 5-15 [facility] BUN/creatinine ratioOrdered By: Lucio Borden on 02-10-2025 Urea nitrogen/Creatinine [Mass ratio] 20.8 mg/mg High 10-20 [facility] Basic Metabolic Profile (BMP )on 02-10-2025 BUN/CRE 20.8 RATIO High 10-20 [facility] Comment on above: Performed By: #### L 500.2500 ####[facility] [address] [place], [address] Calcium [Mass/Vol] 10.0 mg/dL Normal 7.6-11.0 [facility] Comment on above: Performed By: #### L 500.2500 ####[facility] [address] [place], [address] Chloride [Moles/Vol] 98 mmol/L Normal 98-108 [facility] Comment on above: Performed By: #### L 500.2500 ####[facility] [address] [place], [address] CO2 [Moles/Vol] 26.8 mmol/L Normal 21.0-32.0 [facility] Comment on above: Performed By: #### L 500.2500 ####[facility] [address] [place], [address] Creatinine [Mass/Vol] 1.10 mg/dL Normal 0.70-1.20 [facility] Comment on above: Performed By: #### L 500.2500 ####[facility] [address] [place], [address] ECRCL 39.32 ml/min Low 50-250 [facility] Comment on above: Performed By: #### L 500.2500 ####[facility] [address] [place], [address] GAP 14 Normal 5-15 [facility] Comment on above: Performed By: #### L 500.2500 ####[facility] [address] [place], [address] GFR/1.73 sq M.predicted among non-blacks MDRD (S/P/Bld) [Vol rate/Area] 50 mL/min/{1.73_m2} Low >60 [facility] Comment on above: Result Comment: mL/m in/1.73m2 CKD-EPI Creatinine Equation (2020) Performed By: #### L 500.2500 ####[facility] [address] [place], [address] Glucose [Mass/Vol] 361 mg/dL High 70-99 [facility] Comment on above: Performed By: #### L 500.2500 ####[facility] [address] [place], [address] Potassium [Moles/Vol] 4.9 mmol/L Normal 3.3-5.1 [facility] Comment on above: Performed By: #### L 500.2500 ####[facility] [address] [place], [address] Sodium [Moles/Vol] 139 mmol/L Normal 133-145 [facility] Comment on above: Performed By: #### L 500.2500 ####[facility] [address] [place], [address] Urea nitrogen [Mass/Vol] 23 mg/dL High 4-19 [facility] Comment on above: Performed By: #### L 500.2500 ####[facility] [address] [place], [address] Bedside Glucoseon 02-10-2025 FINGERSTICK GLU 167 mg/dL High 74-106 [facility] Comment on above: Result Comment: KATARINA GEMENT OF PATIENT CARE PER NURSING PROTOCOL Performed By: #### L 501.080 ####[facility] [address] [place], [address] FINGERSTICK GLU 78 mg/dL Normal 74-106 [facility] Comment on above: Result Comment: KATARINA GEMENT OF PATIENT CARE PER NURSING PROTOCOL Performed By: #### L 501.080 ####[facility] [address] [place], [address] FINGERSTICK GLU 64 mg/dL Low 74-106 [facility] Comment on above: Result Comment: KATARINA GEMENT OF PATIENT CARE PER NURSING PROTOCOL Performed By: #### L 501.080 ####[facility] [address] [place], [address] FINGERSTICK GLU 222 mg/dL High 74-106 [facility] Comment on above: Result Comment: KATARINA GEMENT OF PATIENT CARE PER NURSING PROTOCOL Performed By: #### L 501.080 ####[facility] [address] [place], [address] Carbon dioxide, total [Moles /volume] in Central venous bloodOrdered By: Lucio Borden on 02-10-2025 CO2 [Moles/Vol] 26.8 mmol/L 21.0-32.0 [facility] Chloride assayOrdered By: Chen Borden on 02-10-2025 Chloride [Moles/Vol] 98 mmol/L 98-108 [facility] Glomerular filtration rate ( GFR) estimation/1.73 sq m using serum, plasma, or whole bOrdered By: Lucio Borden on 02-10-2025 GFR/1.73 sq M.predicted among non-blacks MDRD (S/P/Bld) [Vol rate/Area] 50 mL/min/{1.73_m2} Low >60 [facility] Potassium measurement (mass/ volume)Ordered By: Lucio Borden on 02-10-2025 Potassium (Unsp spec) [Mass/Vol] 4.9 mmol/L 3.3-5.1 [facility] RESPIRATORY PANEL MOLECULARo n 02-10-2025 RP PANEL Normal [facility] Comment on above: Performed By: #### M 100.638 ####[facility] [address] [place], [address] Serum creatinine measurement (mass/volume)Ordered By: Lucio Borden on 02-10-2025 Creatinine [Mass/Vol] 1.10 mg/dL 0.70-1.20 [facility] Serum glucose measurement (m ass/volume)Ordered By: Lucio Borden on 02-10-2025 Glucose [Mass/Vol] 361 mg/dL High 70-99 [facility] Serum or plasma calcium melanie urement (mass/volume)Ordered By: Lucio Borden on 02-10-2025 Calcium [Mass/Vol] 10.0 mg/dL 7.6-11.0 [facility] Serum or plasma urea nitroge n measurement (mass/volume)Ordered By: Lucio Borden on 02-10-2025 Urea nitrogen [Mass/Vol] 23 mg/dL High 4-19 [facility] Sodium levelOrdered By: Lucio Borden on 02-10-2025 Sodium [Moles/Vol] 139 mmol/L 133-145 [facility] Absolute lymphocyte countOrd ered By: Jeremiah Corrales on 02-09-2025 Lymphocytes Auto (Unsp spec) [#/Vol] 0.69 10*3/uL Low 0.83-4.51 [facility] Anion gap in Serum or Plasma Ordered By: Jeremiah Corrales on 02-09-2025 Anion gap [Moles/Vol] 12 mmol/L 5-15 [facility] Automated lymphocyte count a s percentage of total leukocytesOrdered By: Jeremiah Corrales on 02-09-2025 Lymphocytes/100 WBC Auto (Unsp spec) 7.3 % Low 19-41 [facility] BUN/creatinine ratioOrdered By: Jeremiah Corrales on 02-09-2025 Urea nitrogen/Creatinine [Mass ratio] 20.2 mg/mg High 10-20 [facility] Basic Metabolic Profile (BMP )on 02-09-2025 BUN/CRE 20.2 RATIO High - [facility] Comment on above: Performed By: #### L 501.4021, L500.2500, L100.0100 ####[facility] [address] [place], [address] Calcium [Mass/Vol] 10.2 mg/dL Normal 7.6-11.0 [facility] Comment on above: Performed By: #### L 501.4021, L500.2500, L100.0100 ####[facility] [address] [place], [address] Chloride [Moles/Vol] 98 mmol/L Normal 98-108 [facility] Comment on above: Performed By: #### L 501.4021, L500.2500, L100.0100 ####[facility] [address] [place], [address] CO2 [Moles/Vol] 29.9 mmol/L Normal 21.0-32.0 [facility] Comment on above: Performed By: #### L 501.4021, L500.2500, L100.0100 ####[facility] [address] [place], [address] Creatinine [Mass/Vol] 1.16 mg/dL Normal 0.70-1.20 [facility] Comment on above: Performed By: #### L 501.4021, L500.2500, L100.0100 ####[facility] [address] [place], [address] ECRCL 37.42 ml/min Low 50-250 [facility] Comment on above: Performed By: #### L 501.4021, L500.2500, L100.0100 ####[facility] [address] [place], [address] GAP 12 Normal 5-15 [facility] Comment on above: Performed By: #### L 501.4021, L500.2500, L100.0100 ####[facility] [address] [place], [address] GFR/1.73 sq M.predicted among non-blacks MDRD (S/P/Bld) [Vol rate/Area] 47 mL/min/{1.73_m2} Low >60 [facility] Comment on above: Result Comment: mL/m in/1.73m2 CKD-EPI Creatinine Equation (2020) Performed By: #### L 501.4021, L500.2500, L100.0100 ####[facility] [address] [place], [address] Glucose [Mass/Vol] 173 mg/dL High 70-99 [facility] Comment on above: Performed By: #### L 501.4021, L500.2500, L100.0100 ####[facility] [address] [place], [address] Potassium [Moles/Vol] 4.3 mmol/L Normal 3.3-5.1 [facility] Comment on above: Performed By: #### L 501.4021, L500.2500, L100.0100 ####[facility] [address] [place], [address] Sodium [Moles/Vol] 140 mmol/L Normal 133-145 [facility] Comment on above: Performed By: #### L 501.4021, L500.2500, L100.0100 ####[facility] [address] [place], [address] Urea nitrogen [Mass/Vol] 23 mg/dL High 4-19 [facility] Comment on above: Performed By: #### L 501.4021, L500.2500, L100.0100 ####[facility] [address] [place], [address] Basophil percentageOrdered B y: Jeremiah Corrales on 02-09-2025 Basophils/100 WBC (Bld) 0.4 % 0-1 [facility] Bedside Glucoseon 02-09-2025 FINGERSTICK GLU 401 mg/dL High 74-106 [facility] Comment on above: Result Comment: KATARINA GEMENT OF PATIENT CARE PER NURSING PROTOCOL Performed By: #### L 501.080 ####[facility] [address] [place], [address] FINGERSTICK GLU 248 mg/dL High 74-106 [facility] Comment on above: Result Comment: KATARINA GEMENT OF PATIENT CARE PER NURSING PROTOCOL Performed By: #### L 501.080 ####[facility] [address] [place], [address] CBC W/Diff, Automatedon 01-29 PLT EST ADEQUATE Normal ADEQ [facility] Comment on above: Performed By: #### L 501.4021, L500.2500, L100.0100 ####[facility] [address] [place], [address] Carbon dioxide, total [Moles /volume] in Central venous bloodOrdered By: Jreemiah Corrales on 02-09-2025 CO2 [Moles/Vol] 29.9 mmol/L 21.0-32.0 [facility] Chest PA and Lateralon 02-09 Chest PA and Lateral Normal [facility] Chloride assayOrdered By: Enio Corrales on 02-09-2025 Chloride [Moles/Vol] 98 mmol/L 98-108 [facility] Emergency Department Summary on 02-09-2025 Emergency Department Summary Normal [facility] Eosinophil percentageOrdered By: Jeremiah Corrales on 02-09-2025 Eosinophils/100 WBC (Bld) 0.1 % 0-5 [facility] Erythrocyte distribution wid th ratioOrdered By: Jeremiah Corrales on 02-09-2025 Erythrocyte distribution width (RBC) [Ratio] 15.8 % High 11.6-14.6 [facility] Erythrocyte distribution wid th standard deviationOrdered By: Jeremiah Corrales on 02-09-2025 Erythrocyte distribution width (RBC) [Ratio] 51.3 fl High 35.1-43.9 [facility] Glomerular filtration rate ( GFR) estimation/1.73 sq m using serum, plasma, or whole bOrdered By: Jeremiah Corrales on 02-09-2025 GFR/1.73 sq M.predicted among non-blacks MDRD (S/P/Bld) [Vol rate/Area] 47 mL/min/{1.73_m2} Low >60 [facility] H AND P Exam - Hospitaliston 02-09-2025 H&P Exam - Hospitalist Normal [facility] Hematocrit Auto (Bld) [Volum e fraction]Ordered By: Jeremiah Corrales on 02-09-2025 Hematocrit (Bld) [Volume fraction] 37.9 % 37-47 [facility] Hemoglobin measurementOrdere d By: Jeremiah Corrales on 02-09-2025 Hemoglobin (Bld) [Mass/Vol] 11.5 g/dL Low 12.0-15.0 [facility] Immature granulocytes/100 WB C Auto (Bld)Ordered By: Jeremiah Corrales on 02-09-2025 Immature granulocytes/100 WBC (Bld) 0.800 % 0.0-0.9 [facility] L499.0042on 02-09-2025 Trop T High Sen 119 ng/L Invalid Interpretation Code <=14 [facility] Comment on above: Result Comment: Crit ical Result(s) Called VANE GRAVES at: 1520 by:VIET??Results read back by same. Performed By: #### L 499.0042 ####[facility] [address] [place], [address] L501.4021on 02-09-2025 Trop T High Sen 122 ng/L Invalid Interpretation Code <=14 [facility] Comment on above: Result Comment: Crit ical Result(s) Called at 1330: by: SHARONA ROWELL. ??Results read back by same. Performed By: #### L 501.4021, L500.2500, L100.0100 ####[facility] [address] [place], [address] L503.7505on 02-09-2025 Natriuretic peptide B (Bld) [Mass/Vol] 9616 pg/mL High <=1800 [facility] Comment on above: Result Comment: Hear t Failure Unlikely: < 300 pg/mLHeart Failure Likely< 50 Years: > 450 pg/mL50-75 Years: > 900 pg/mL>75 Years: > 1800 pg/mL Performed By: #### L 503.7506 ####[facility] [address] [facility] [place], [place], [address] MCV (mean corpuscular volume ) determinationOrdered By: Jeremiah Corrales on 02-09-2025 MCV (RBC) [Entitic vol] 89.8 fL 81-99 [facility] Mean corpuscular hemoglobin (MCH) determinationOrdered By: Jeremiah Corrales on 02-09-2025 MCH (RBC) [Entitic mass] 27.3 pg 27.0-32.0 [facility] Monocyte percentageOrdered B y: Jeremiah Corrales on 02-09-2025 Monocytes/100 WBC (Bld) 4.5 % 0-10 [facility] Natriuretic peptide.B prohor hayley N-Terminal [Mass/volume] in Serum or PlasmaOrdered By: Jeremiah Corrales on 02-09-2025 Natriuretic peptide.B prohormone N-Terminal [Mass/Vol] 9616 pg/mL High <1800 [facility] Neutrophil percentageOrdered By: Jeremiah Corrales on 02-09-2025 Neutrophils/100 WBC (Bld) 86.9 % High 47-70 [facility] Platelet countOrdered By: Enio Corrales on 02-09-2025 Platelet count TNP [facility] Platelet estimateOrdered By: Jeremiah Corrales on 02-09-2025 Platelets LM Ql (Bld) ADEQUATE ADEQ [facility] Potassium measurement (mass/ volume)Ordered By: Jeremiah Corrales on 02-09-2025 Potassium (Unsp spec) [Mass/Vol] 4.3 mmol/L 3.3-5.1 [facility] RBC Auto (Bld) [#/Vol]Ordere d By: Jeremiah Corrales on 02-09-2025 RBC (Bld) [#/Vol] 4.22 10*6/uL 4.2-5.4 [facility] Respiratory pathogens detect ion panel by molecular detection methodOrdered By: Tono Gomez on 02-09-2025 Respiratory pathogens DNA and RNA panel BEBETO+probe (Resp) Parainfluenza 3 Abnormal [facility] Serum creatinine measurement (mass/volume)Ordered By: Jeremiah Corrales on 02-09-2025 Creatinine [Mass/Vol] 1.16 mg/dL 0.70-1.20 [facility] Serum glucose measurement (m ass/volume)Ordered By: Jeremiah Corrales on 02-09-2025 Glucose [Mass/Vol] 173 mg/dL High 70-99 [facility] Serum or plasma calcium melanie urement (mass/volume)Ordered By: Jeremiah Corrales on 02-09-2025 Calcium [Mass/Vol] 10.2 mg/dL 7.6-11.0 [facility] Serum or plasma urea nitroge n measurement (mass/volume)Ordered By: Jeremiah Corrales on 02-09-2025 Urea nitrogen [Mass/Vol] 23 mg/dL High 4-19 [facility] Sodium levelOrdered By: Jeremiah Corrales on 02-09-2025 Sodium [Moles/Vol] 140 mmol/L 133-145 [facility] Troponin T.cardiac [Mass/vol ume] in Serum or Plasma by High sensitivity methodOrdered By: Jeremiah Corrales on 02-09-2025 Troponin T.cardiac High sensitivity method [Mass/Vol] 119 ng/L High <14 [facility] Troponin T.cardiac High sensitivity method [Mass/Vol] 122 ng/L High <14 [facility] White blood cell (WBC) count Ordered By: Jeremiah Corrales on 02-09-2025 WBC (Bld) [#/Vol] 9.4 10*3/uL 4.4-11.0 [facility] Absolute lymphocyte countOrd ered By: Ramone Smiley on 02-07-2025 Lymphocytes Auto (Unsp spec) [#/Vol] 0.84 10*3/uL 0.83-4.51 [facility] Anion gap in Serum or Plasma Ordered By: Ramone Smiley on 02-07-2025 Anion gap [Moles/Vol] 12 mmol/L 5- [facility] Automated lymphocyte count a s percentage of total leukocytesOrdered By: Ramone Smiley on 02-07-2025 Lymphocytes/100 WBC Auto (Unsp spec) 7.3 % Low - [facility] BUN/creatinine ratioOrdered By: Ramone Smiley on 02-07-2025 Urea nitrogen/Creatinine [Mass ratio] 17.7 mg/mg 06-19 [facility] Basophil percentageOrdered B y: Ramone Smiley on 02-07-2025 Basophils/100 WBC (Bld) 0.1 % 0-1 [facility] Bilirubin, totalOrdered By: Ramone Smiley on 02-07-2025 Bilirubin [Mass/Vol] 0.25 mg/dL 0.00-1.30 [facility] CBC W/Diff, Automatedon 01-29 Absolute Lymph 0.84 X10 3/uL Normal 0.83-4.51 [facility] Comment on above: Order Comment: Order Date: 02/07/25Order Info: 0184-1 - CBCD Performed By: #### L 100.0100, L500.4050 ####[facility] [address] [place], [address] Absolute Neut 10.0 X10 3/uL High 2.0-7.7 [facility] Comment on above: Order Comment: Order Date: 02/07/25Order Info: 0184-1 - CBCD Performed By: #### L 100.0100, L500.4050 ####[facility] [address] [place], [address] Basophils/100 WBC (Bld) 0.1 % Normal 0-1 [facility] Comment on above: Order Comment: Order Date: 02/07/25Order Info: 0184-1 - CBCD Performed By: #### L 100.0100, L500.4050 ####[facility] [address] [place], [address] Eosinophils/100 WBC (Bld) 0.0 % Normal 0-5 [facility] Comment on above: Order Comment: Order Date: 02/07/25Order Info: 0184-1 - CBCD Performed By: #### L 100.0100, L500.4050 ####[facility] [address] [place], [address] Erythrocyte distribution width (RBC) [Ratio] 15.7 % High 11.6-14.6 [facility] Comment on above: Order Comment: Order Date: 02/07/25Order Info: 0184-1 - CBCD Performed By: #### L 100.0100, L500.4050 ####[facility] [address] [place], [address] Hematocrit (Bld) [Volume fraction] 36.8 % Low 37-47 [facility] Comment on above: Order Comment: Order Date: 02/07/25Order Info: 0184-1 - CBCD Performed By: #### L 100.0100, L500.4050 ####[facility] [address] [place], [address] Hemoglobin (Bld) [Mass/Vol] 11.4 g/dL Low 12.0-15.0 [facility] Comment on above: Order Comment: Order Date: 02/07/25Order Info: 0184-1 - CBCD Performed By: #### L 100.0100, L500.4050 ####[facility] [address] [place], [address] IG% 0.400 Normal 0.0-0.9 [facility] Comment on above: Order Comment: Order Date: 02/07/25Order Info: 0184-1 - CBCD Result Comment: IG% - Immature Granulocytes (promyelocytes, myelocytes andmetamyelocytes) > 1% indicates that a LEFT SHIFT is Present. Performed By: #### L 100.0100, L500.4050 ####[facility] [address] [place], [address] Lymphocytes/100 WBC (Bld) 7.3 % Low 19-41 [facility] Comment on above: Order Comment: Order Date: 02/07/25Order Info: 0184-1 - CBCD Performed By: #### L 100.0100, L500.4050 ####[facility] [address] [place], [address] MCH (RBC) [Entitic mass] 27.9 pg Normal 27.0-32.0 [facility] Comment on above: Order Comment: Order Date: 02/07/25Order Info: 0184- - CBCD Performed By: #### L 100.0100, L500.4050 ####[facility] [address] [place], [address] MCHC (RBC) [Mass/Vol] 31.0 g/dL Low 32-36 [facility] Comment on above: Order Comment: Order Date: 02/07/25Order Info: 0184-1 - CBCD Performed By: #### L 100.0100, L500.4050 ####[facility] [address] [place], [address] MCV (RBC) [Entitic vol] 90.2 fL Normal 81-99 [facility] Comment on above: Order Comment: Order Date: 02/07/25Order Info: 0184-1 - CBCD Performed By: #### L 100.0100, L500.4050 ####[facility] [address] [place], [address] Monocytes/100 WBC (Bld) 5.2 % Normal 0-10 [facility] Comment on above: Order Comment: Order Date: 02/07/25Order Info: 0184-1 - CBCD Performed By: #### L 100.0100, L500.4050 ####[facility] [address] [place], [address] Neutrophils/100 WBC (Bld) 87.0 % High 47-70 [facility] Comment on above: Order Comment: Order Date: 02/07/25Order Info: 4-1 - CBCD Performed By: #### L 100.0100, L500.4050 ####[facility] [address] [place], [address] Nucleated RBC (Bld) [#/Vol] 0 10*3/uL Normal 0-5 [facility] Comment on above: Order Comment: Order Date: 02/07/25Order Info: 018- - CBCD Performed By: #### L 100.0100, L500.4050 ####[facility] [address] [place], [address] Platelet mean volume (Bld) [Entitic vol] 11.5 fL Normal 6.2-12.0 [facility] Comment on above: Order Comment: Order Date: 02/07/25Order Info: 018- - CBCD Performed By: #### L 100.0100, L500.4050 ####[facility] [address] [place], [address] Platelets (Bld) [#/Vol] 247 10*3/uL Normal 150-450 [facility] Comment on above: Order Comment: Order Date: 02/07/25Order Info: 0184-1 - CBCD Performed By: #### L 100.0100, L500.4050 ####[facility] [address] [place], [address] RBC (Bld) [#/Vol] 4.08 10*6/uL Low 4.2-5.4 [facility] Comment on above: Order Comment: Order Date: 02/07/25Order Info: 0184-1 - CBCD Performed By: #### L 100.0100, L500.4050 ####[facility] [address] [place], [address] RDW SD 51.8 fl High 35.1-43.9 [facility] Comment on above: Order Comment: Order Date: 02/07/25Order Info: 0184-1 - CBCD Performed By: #### L 100.0100, L500.4050 ####[facility] [address] [place], [address] WBC (Bld) [#/Vol] 11.5 10*3/uL High 4.4-11.0 [facility] Comment on above: Order Comment: Order Date: 02/07/25Order Info: 018- - CBCD Performed By: #### L 100.0100, L500.4050 ####[facility] [address] [place], [address] Carbon dioxide, total [Moles /volume] in Central venous bloodOrdered By: Ramone Smiley on 02-07-2025 CO2 [Moles/Vol] 27.9 mmol/L 21.0-32.0 [facility] Chloride assayOrdered By: Richar Smiley on 02-07-2025 Chloride [Moles/Vol] 96 mmol/L Low 98-108 [facility] Comprehensive Metabolic Prof ilon 02-07-2025 Albumin [Mass/Vol] 3.3 g/dL Low 3.4-4.8 [facility] Comment on above: Order Comment: URINE UTOOrder Date: 02/07/25Order Info: 0786-1 - CMP Performed By: #### L 100.0100, L500.4050 ####[facility] [address] [place], [address] Albumin/Globulin [Mass ratio] 1.0 {ratio} Normal 0.9-2.4 [facility] Comment on above: Order Comment: URINE UTOOrder Date: 02/07/25Order Info: 0786-1 - CMP Performed By: #### L 100.0100, L500.4050 ####[facility] [address] [place], [address] ALK PHOS 86 U/L Normal 35-104 [facility] Comment on above: Order Comment: URINE UTOOrder Date: 02/07/25Order Info: 0786-1 - CMP Performed By: #### L 100.0100, L500.4050 ####[facility] [address] [place], [address] ALT [Catalytic activity/Vol] 20 U/L Normal <=34 [facility] Comment on above: Order Comment: URINE UTOOrder Date: 02/07/25Order Info: 0786-1 - CMP Performed By: #### L 100.0100, L500.4050 ####[facility] [address] [place], [address] AST [Catalytic activity/Vol] 29 U/L Normal <=31 [facility] Comment on above: Order Comment: URINE UTOOrder Date: 02/07/25Order Info: 0786-1 - CMP Performed By: #### L 100.0100, L500.4050 ####[facility] [address] [place], [address] Bilirubin [Mass/Vol] 0.25 mg/dL Normal 0.00-1.30 [facility] Comment on above: Order Comment: URINE UTOOrder Date: 02/07/25Order Info: 0786-1 - CMP Performed By: #### L 100.0100, L500.4050 ####[facility] [address] [place], [address] BUN/CRE 17.7 RATIO Normal 10-20 [facility] Comment on above: Order Comment: URINE UTOOrder Date: 02/07/25Order Info: 0786-1 - CMP Performed By: #### L 100.0100, L500.4050 ####[facility] [address] [place], [address] Calcium [Mass/Vol] 10.2 mg/dL Normal 7.6-11.0 [facility] Comment on above: Order Comment: URINE UTOOrder Date: 02/07/25Order Info: 0786-1 - CMP Performed By: #### L 100.0100, L500.4050 ####[facility] [address] [place], [address] Chloride [Moles/Vol] 96 mmol/L Low 98-108 [facility] Comment on above: Order Comment: URINE UTOOrder Date: 02/07/25Order Info: 785-1 - CMP Performed By: #### L 100.0100, L500.4050 ####[facility] [address] [place], [address] CO2 [Moles/Vol] 27.9 mmol/L Normal 21.0-32.0 [facility] Comment on above: Order Comment: URINE UTOOrder Date: 02/07/25Order Info: 07-1 - CMP Performed By: #### L 100.0100, L500.4050 ####[facility] [address] [place], [address] Creatinine [Mass/Vol] 1.37 mg/dL High 0.70-1.20 [facility] Comment on above: Order Comment: URINE UTOOrder Date: 02/07/25Order Info: 0786-1 - CMP Performed By: #### L 100.0100, L500.4050 ####[facility] [address] [place], [address] GAP 12 Normal 5-15 [facility] Comment on above: Order Comment: URINE UTOOrder Date: 02/07/25Order Info: 0786-1 - CMP Performed By: #### L 100.0100, L500.4050 ####[facility] [address] [place], [address] GFR/1.73 sq M.predicted among non-blacks MDRD (S/P/Bld) [Vol rate/Area] 39 mL/min/{1.73_m2} Low >60 [facility] Comment on above: Order Comment: URINE UTOOrder Date: 02/07/25Order Info: 0786-1 - CMP Result Comment: mL/m in/1.73m2 CKD-EPI Creatinine Equation (2020) Performed By: #### L 100.0100, L500.4050 ####[facility] [address] [place], [address] Globulin (S) [Mass/Vol] 3.2 g/dL Normal 2.2-4.2 [facility] Comment on above: Order Comment: URINE UTOOrder Date: 02/07/25Order Info: 0786-1 - CMP Performed By: #### L 100.0100, L500.4050 ####[facility] [address] [place], [address] Glucose [Mass/Vol] 254 mg/dL High 70-99 [facility] Comment on above: Order Comment: URINE UTOOrder Date: 02/07/25Order Info: 0786-1 - CMP Performed By: #### L 100.0100, L500.4050 ####[facility] [address] [place], [address] Potassium [Moles/Vol] 5.1 mmol/L Normal 3.3-5.1 [facility] Comment on above: Order Comment: URINE UTOOrder Date: 02/07/25Order Info: 0786-1 - CMP Performed By: #### L 100.0100, L500.4050 ####[facility] [address] [place], [address] Sodium [Moles/Vol] 136 mmol/L Normal 133-145 [facility] Comment on above: Order Comment: URINE UTOOrder Date: 02/07/25Order Info: 0786-1 - CMP Performed By: #### L 100.0100, L500.4050 ####[facility] [address] [place], [address] T PROT 6.5 g/dL Normal 5.9-8.4 [facility] Comment on above: Order Comment: URINE UTOOrder Date: 02/07/25Order Info: 0786-1 - CMP Performed By: #### L 100.0100, L500.4050 ####[facility] [address] [place], [address] Urea nitrogen [Mass/Vol] 24 mg/dL High 4-19 [facility] Comment on above: Order Comment: URINE UTOOrder Date: 02/07/25Order Info: 0786- - CMP Performed By: #### L 100.0100, L500.4050 ####[facility] [address] [place], [address] Eosinophil percentageOrdered By: Ramone Smiley on 02-07-2025 Eosinophils/100 WBC (Bld) 0.0 % 0-5 [facility] Erythrocyte distribution wid th ratioOrdered By: Ramone Smiley on 02-07-2025 Erythrocyte distribution width (RBC) [Ratio] 15.7 % High 11.6-14.6 [facility] Erythrocyte distribution wid th standard deviationOrdered By: aRmone Smiley on 02-07-2025 Erythrocyte distribution width (RBC) [Ratio] 51.8 fl High 35.1-43.9 [facility] Glomerular filtration rate ( GFR) estimation/1.73 sq m using serum, plasma, or whole bOrdered By: Ramone Smiley on 02-07-2025 GFR/1.73 sq M.predicted among non-blacks MDRD (S/P/Bld) [Vol rate/Area] 39 mL/min/{1.73_m2} Low >60 [facility] Hematocrit Auto (Bld) [Volum e fraction]Ordered By: Ramone Smiley on 02-07-2025 Hematocrit (Bld) [Volume fraction] 36.8 % Low 37-47 [facility] Hemoglobin measurementOrdere d By: Ramone Smiley on 02-07-2025 Hemoglobin (Bld) [Mass/Vol] 11.4 g/dL Low 12.0-15.0 [facility] Immature granulocytes/100 WB C Auto (Bld)Ordered By: Ramone Smiley on 02-07-2025 Immature granulocytes/100 WBC (Bld) 0.400 % 0.0-0.9 [facility] MCV (mean corpuscular volume ) determinationOrdered By: Ramone Smiley on 02-07-2025 MCV (RBC) [Entitic vol] 90.2 fL 81-99 [facility] Mean corpuscular hemoglobin (MCH) determinationOrdered By: Ramone Smiley on 02-07-2025 MCH (RBC) [Entitic mass] 27.9 pg 27.0-32.0 [facility] Monocyte percentageOrdered B y: Ramone Smiley on 02-07-2025 Monocytes/100 WBC (Bld) 5.2 % 0-10 [facility] Neutrophil percentageOrdered By: Ramone Smiley on 02-07-2025 Neutrophils/100 WBC (Bld) 87.0 % High 47-70 [facility] No Panel InformationOrdered By: Ramone Smiley on 02-07-2025 29 U/L <32 [facility] Platelet countOrdered By: Richar Smiley on 02-07-2025 Platelets (Bld) [#/Vol] 247 10*3/uL 150-450 [facility] Potassium measurement (mass/ volume)Ordered By: Ramone Smiley on 02-07-2025 Potassium (Unsp spec) [Mass/Vol] 5.1 mmol/L 3.3-5.1 [facility] RBC Auto (Bld) [#/Vol]Ordere d By: Ramone Smiley on 02-07-2025 RBC (Bld) [#/Vol] 4.08 10*6/uL Low 4.2-5.4 [facility] Serum creatinine measurement (mass/volume)Ordered By: Ramone Smiley on 02-07-2025 Creatinine [Mass/Vol] 1.37 mg/dL High 0.70-1.20 [facility] Serum globulin measurementOr dered By: Ramone Smiley on 02-07-2025 Globulin (S) [Mass/Vol] 3.2 g/dL 2.2-4.2 [facility] Serum glucose measurement (m ass/volume)Ordered By: Ramone Smiley on 02-07-2025 Glucose [Mass/Vol] 254 mg/dL High 70-99 [facility] Serum or plasma alanine kelley otransferase (ALT) measurementOrdered By: Ramone Smiley on 02-07-2025 ALT [Catalytic activity/Vol] 20 U/L <35 [facility] Serum or plasma albumin melanie urement (mass/volume)Ordered By: Ramone Smiley on 02-07-2025 Albumin [Mass/Vol] 3.3 g/dL Low 3.4-4.8 [facility] Serum or plasma albumin/glob ulin mass ratioOrdered By: Ramone Smiley on 02-07-2025 Albumin/Globulin [Mass ratio] 1.0 {ratio} 0.9-2.4 [facility] Serum or plasma alkaline lissa sphatase measurementOrdered By: Ramone Smiley on 02-07-2025 ALP [Catalytic activity/Vol] 86 U/L 35-104 [facility] Serum or plasma calcium melanie urement (mass/volume)Ordered By: Ramone Smiley on 02-07-2025 Calcium [Mass/Vol] 10.2 mg/dL 7.6-11.0 [facility] Serum or plasma urea nitroge n measurement (mass/volume)Ordered By: Ramone Smiley on 02-07-2025 Urea nitrogen [Mass/Vol] 24 mg/dL High 4-19 [facility] Sodium levelOrdered By: Ramone Smiley on 02-07-2025 Sodium [Moles/Vol] 136 mmol/L 133-145 [facility] Total proteinOrdered By: Lilliam Smiley on 02-07-2025 Protein [Mass/Vol] 6.5 g/dL 5.9-8.4 [facility] White blood cell (WBC) count Ordered By: Ramone Smiley on 02-07-2025 WBC (Bld) [#/Vol] 11.5 10*3/uL High 4.4-11.0 [facility] Bedside Glucoseon 02-06-2025 FINGERSTICK GLU 190 mg/dL High 74-106 [facility] Comment on above: Result Comment: KATARINA GEMENT OF PATIENT CARE PER NURSING PROTOCOL Performed By: #### L 501.080 ####[facility] [address] [place], [address] FINGERSTICK GLU 237 mg/dL High 74-106 [facility] Comment on above: Result Comment: KATARINA GEMENT OF PATIENT CARE PER NURSING PROTOCOL Performed By: #### L 501.080 ####[facility] [address] [facility] [address] Discharge Instructionon 06-0 Discharge Instruction Normal [facility] Electrocardiogram reportOrde red By: Marcelina Soto on 02-06-2025 EKG study [facility] Work Phone: [facility] deOrdered By: Lucio Borden on 02-06-2025 Glucose [Mass/Vol] 190 mg/dL High 74-106 [facility] Anion gap in Serum or Plasma Ordered By: Lucio Borden on 02-05-2025 Anion gap [Moles/Vol] 15 mmol/L 5-15 [facility] BUN/creatinine ratioOrdered By: Lucio Borden on 02-05-2025 Urea nitrogen/Creatinine [Mass ratio] 16.1 mg/mg 10-20 [facility] Basic Metabolic Profile (BMP )on 02-05-2025 BUN/CRE 16.1 RATIO Normal -20 [facility] Comment on above: Performed By: #### L 500.2500 ####[facility] [address] [place], [address] Calcium [Mass/Vol] 9.1 mg/dL Normal 7.6-11.0 [facility] Comment on above: Performed By: #### L 500.2500 ####[facility] [address] [place], [address] Chloride [Moles/Vol] 94 mmol/L Low 98-108 [facility] Comment on above: Performed By: #### L 500.2500 ####[facility] [address] [place], [address] CO2 [Moles/Vol] 26.4 mmol/L Normal 21.0-32.0 [facility] Comment on above: Performed By: #### L 500.2500 ####[facility] [address] [place], [address] Creatinine [Mass/Vol] 1.06 mg/dL Normal 0.70-1.20 [facility] Comment on above: Performed By: #### L 500.2500 ####[facility] [address] [place], [address] ECRCL 39.38 ml/min Low 50-250 [facility] Comment on above: Performed By: #### L 500.2500 ####[facility] [address] [place], [address] GAP 15 Normal 5-15 [facility] Comment on above: Performed By: #### L 500.2500 ####[facility] [address] [place], [address] GFR/1.73 sq M.predicted among non-blacks MDRD (S/P/Bld) [Vol rate/Area] 53 mL/min/{1.73_m2} Low >60 [facility] Comment on above: Result Comment: mL/m in/1.73m2 CKD-EPI Creatinine Equation (2020) Performed By: #### L 500.2500 ####[facility] [address] [place], [address] Glucose [Mass/Vol] 272 mg/dL High 70-99 [facility] Comment on above: Performed By: #### L 500.2500 ####[facility] [address] [place], [address] Potassium [Moles/Vol] 4.2 mmol/L Normal 3.3-5.1 [facility] Comment on above: Performed By: #### L 500.2500 ####[facility] [address] [place], [address] Sodium [Moles/Vol] 135 mmol/L Normal 133-145 [facility] Comment on above: Performed By: #### L 500.2500 ####[facility] [address] [place], [address] Urea nitrogen [Mass/Vol] 17 mg/dL Normal 4-19 [facility] Comment on above: Performed By: #### L 500.2500 ####[facility] [address] [place], [address] Bedside Glucoseon 02-05-2025 FINGERSTICK GLU 156 mg/dL High 74-106 [facility] Comment on above: Result Comment: KATARINA GEMENT OF PATIENT CARE PER NURSING PROTOCOL Performed By: #### L 501.080 ####[facility] [address] [place], [address] FINGERSTICK GLU 128 mg/dL High 74-106 [facility] Comment on above: Result Comment: KATARINA GEMENT OF PATIENT CARE PER NURSING PROTOCOL Performed By: #### L 501.080 ####[facility] [address] [place], [address] FINGERSTICK GLU 296 mg/dL High 74-106 [facility] Comment on above: Result Comment: KATARINA GEMENT OF PATIENT CARE PER NURSING PROTOCOL Performed By: #### L 501.080 ####[facility] [address] [place], [address] FINGERSTICK GLU 238 mg/dL High 74-106 [facility] Comment on above: Result Comment: KATARINA GEMENT OF PATIENT CARE PER NURSING PROTOCOL Performed By: #### L 501.080 ####[facility] [address] [place], [address] Carbon dioxide, total [Moles /volume] in Central venous bloodOrdered By: Lucio Borden on 02-05-2025 CO2 [Moles/Vol] 26.4 mmol/L 21.0-32.0 [facility] Chloride assayOrdered By: Chen Borden on 02-05-2025 Chloride [Moles/Vol] 94 mmol/L Low 98-108 [facility] Glomerular filtration rate ( GFR) estimation/1.73 sq m using serum, plasma, or whole bOrdered By: Lucio Borden on 02-05-2025 GFR/1.73 sq M.predicted among non-blacks MDRD (S/P/Bld) [Vol rate/Area] 53 mL/min/{1.73_m2} Low >60 [facility] Potassium measurement (mass/ volume)Ordered By: Lucio Borden on 02-05-2025 Potassium (Unsp spec) [Mass/Vol] 4.2 mmol/L 3.3-5.1 [facility] Serum creatinine measurement (mass/volume)Ordered By: Lucio Borden on 02-05-2025 Creatinine [Mass/Vol] 1.06 mg/dL 0.70-1.20 [facility] Serum glucose measurement (m ass/volume)Ordered By: Lucio Borden on 02-05-2025 Glucose [Mass/Vol] 272 mg/dL High 70-99 [facility] Serum or plasma calcium melanie urement (mass/volume)Ordered By: Lucio Borden on 02-05-2025 Calcium [Mass/Vol] 9.1 mg/dL 7.6-11.0 [facility] Serum or plasma urea nitroge n measurement (mass/volume)Ordered By: Lucio Borden on 02-05-2025 Urea nitrogen [Mass/Vol] 17 mg/dL 4-19 [facility] Sodium levelOrdered By: Lucio Borden on 02-05-2025 Sodium [Moles/Vol] 135 mmol/L 133-145 [facility] 12 Lead EKGon 02-04-2025 12 Lead EKG Normal [facility] Absolute lymphocyte countOrd ered By: Aj Holley on 02-04-2025 Lymphocytes Auto (Unsp spec) [#/Vol] 1.75 10*3/uL 0.83-4.51 [facility] Anion gap in Serum or Plasma Ordered By: Aj Holley on 02-04-2025 Anion gap [Moles/Vol] 16 mmol/L High 5-15 [facility] Automated lymphocyte count a s percentage of total leukocytesOrdered By: Aj Holley on 02-04-2025 Lymphocytes/100 WBC Auto (Unsp spec) 15.7 % Low 19-41 [facility] BUN/creatinine ratioOrdered By: Aj Holley on 02-04-2025 Urea nitrogen/Creatinine [Mass ratio] 13.2 mg/mg - [facility] Basic Metabolic Profile (BMP )on 02-04-2025 BUN/CRE 13.2 RATIO Normal - [facility] Comment on above: Performed By: #### L 500.2500, L100.0100 ####[facility] [address] [place], [address] Calcium [Mass/Vol] 8.9 mg/dL Normal 7.6-11.0 [facility] Comment on above: Performed By: #### L 500.2500, L100.0100 ####[facility] [address] [place], [address] Chloride [Moles/Vol] 95 mmol/L Low 98-108 [facility] Comment on above: Performed By: #### L 500.2500, L100.0100 ####[facility] [address] [place], [address] CO2 [Moles/Vol] 25.9 mmol/L Normal 21.0-32.0 [facility] Comment on above: Performed By: #### L 500.2500, L100.0100 ####[facility] [address] [place], [address] Creatinine [Mass/Vol] 1.14 mg/dL Normal 0.70-1.20 [facility] Comment on above: Performed By: #### L 500.2500, L100.0100 ####[facility] [address] [place], [address] ECRCL 37.95 ml/min Low 50-250 [facility] Comment on above: Performed By: #### L 500.2500, L100.0100 ####[facility] [address] [place], [address] GAP 16 High 5-15 [facility] Comment on above: Performed By: #### L 500.2500, L100.0100 ####[facility] [address] [place], [address] GFR/1.73 sq M.predicted among non-blacks MDRD (S/P/Bld) [Vol rate/Area] 48 mL/min/{1.73_m2} Low >60 [facility] Comment on above: Result Comment: mL/m in/1.73m2 CKD-EPI Creatinine Equation (2020) Performed By: #### L 500.2500, L100.0100 ####[facility] [address] [place], [address] Glucose [Mass/Vol] 132 mg/dL High 70-99 [facility] Comment on above: Performed By: #### L 500.2500, L100.0100 ####[facility] [address] [place], [address] Potassium [Moles/Vol] 3.9 mmol/L Normal 3.3-5.1 [facility] Comment on above: Result Comment: Hemo lysis present, Results??could be affected.?? Performed By: #### L 500.2500, L100.0100 ####[facility] [address] [place], [address] Sodium [Moles/Vol] 137 mmol/L Normal 133-145 [facility] Comment on above: Performed By: #### L 500.2500, L100.0100 ####[facility] [address] [place], [address] Urea nitrogen [Mass/Vol] 15 mg/dL Normal 4-19 [facility] Comment on above: Performed By: #### L 500.2500, L100.0100 ####[facility] [address] [place], [address] Basophil percentageOrdered B y: Aj Holley on 02-04-2025 Basophils/100 WBC (Bld) 0.2 % 0-1 [facility] Bedside Glucoseon 02-04-2025 FINGERSTICK GLU 179 mg/dL High 74-106 [facility] Comment on above: Result Comment: KATARINA GEMENT OF PATIENT CARE PER NURSING PROTOCOL Performed By: #### L 501.080 ####[facility] [address] [place], [address] FINGERSTICK GLU 240 mg/dL High 74-106 [facility] Comment on above: Result Comment: KATARINA GEMENT OF PATIENT CARE PER NURSING PROTOCOL Performed By: #### L 501.080 ####[facility] [address] [place], [address] CBC W/Diff, Automatedon 06 Absolute Lymph 1.75 X10 3/uL Normal 0.83-4.51 [facility] Comment on above: Performed By: #### L 500.2500, L100.0100 ####[facility] [address] [place], [address] Absolute Neut 8.4 X10 3/uL High 2.0-7.7 [facility] Comment on above: Performed By: #### L 500.2500, L100.0100 ####[facility] [address] [place], [address] Basophils/100 WBC (Bld) 0.2 % Normal 0-1 [facility] Comment on above: Performed By: #### L 500.2500, L100.0100 ####[facility] [address] [place], [address] Eosinophils/100 WBC (Bld) 1.7 % Normal 0-5 [facility] Comment on above: Performed By: #### L 500.2500, L100.0100 ####[facility] [address] [place], [address] Erythrocyte distribution width (RBC) [Ratio] 15.9 % High 11.6-14.6 [facility] Comment on above: Performed By: #### L 500.2500, L100.0100 ####[facility] [address] [place], [address] Hematocrit (Bld) [Volume fraction] 34.1 % Low 37-47 [facility] Comment on above: Performed By: #### L 500.2500, L100.0100 ####[facility] [address] [place], [address] Hemoglobin (Bld) [Mass/Vol] 10.7 g/dL Low 12.0-15.0 [facility] Comment on above: Performed By: #### L 500.2500, L100.0100 ####[facility] [address] [place], [address] IG% 0.400 Normal 0.0-0.9 [facility] Comment on above: Result Comment: IG% - Immature Granulocytes (promyelocytes, myelocytes andmetamyelocytes) > 1% indicates that a LEFT SHIFT is Present. Performed By: #### L 500.2500, L100.0100 ####[facility] [address] [place], [address] Lymphocytes/100 WBC (Bld) 15.7 % Low 19-41 [facility] Comment on above: Performed By: #### L 500.2500, L100.0100 ####[facility] [address] [place], [address] MCH (RBC) [Entitic mass] 27.9 pg Normal 27.0-32.0 [facility] Comment on above: Performed By: #### L 500.2500, L100.0100 ####[facility] [address] [place], [address] MCHC (RBC) [Mass/Vol] 31.4 g/dL Low 32-36 [facility] Comment on above: Performed By: #### L 500.2500, L100.0100 ####[facility] [address] [place], [address] MCV (RBC) [Entitic vol] 88.8 fL Normal 81-99 [facility] Comment on above: Performed By: #### L 500.2500, L100.0100 ####[facility] [address] [place], [address] Monocytes/100 WBC (Bld) 6.6 % Normal 0-10 [facility] Comment on above: Performed By: #### L 500.2500, L100.0100 ####[facility] [address] [place], [address] Neutrophils/100 WBC (Bld) 75.4 % High 47-70 [facility] Comment on above: Performed By: #### L 500.2500, L100.0100 ####[facility] [address] [place], [address] Nucleated RBC (Bld) [#/Vol] 0 10*3/uL Normal 0-5 [facility] Comment on above: Performed By: #### L 500.2500, L100.0100 ####[facility] [address] [place], [address] Platelet mean volume (Bld) [Entitic vol] 11.3 fL Normal 6.2-12.0 [facility] Comment on above: Performed By: #### L 500.2500, L100.0100 ####[facility] [address] [place], [address] Platelets (Bld) [#/Vol] 185 10*3/uL Normal 150-450 [facility] Comment on above: Performed By: #### L 500.2500, L100.0100 ####[facility] [address] [place], [address] RBC (Bld) [#/Vol] 3.84 10*6/uL Low 4.2-5.4 [facility] Comment on above: Performed By: #### L 500.2500, L100.0100 ####[facility] [address] [place], [address] RDW SD 51.4 fl High 35.1-43.9 [facility] Comment on above: Performed By: #### L 500.2500, L100.0100 ####[facility] [address] [place], [address] WBC (Bld) [#/Vol] 11.2 10*3/uL High 4.4-11.0 [facility] Comment on above: Performed By: #### L 500.2500, L100.0100 ####[facility] [address] [place], [address] CTA Chest W/WO Contraston CTA Chest W/WO Contrast Normal [facility] Carbon dioxide, total [Moles /volume] in Central venous bloodOrdered By: Aj Holley on 02-04-2025 CO2 [Moles/Vol] 25.9 mmol/L 21.0-32.0 [facility] Chest PA and Lateralon 02-04 Chest PA and Lateral Normal [facility] Chloride assayOrdered By: Dahlia Holley on 02-04-2025 Chloride [Moles/Vol] 95 mmol/L Low 98-108 [facility] Emergency Department Summary on 02-04-2025 Emergency Department Summary Normal [facility] Eosinophil percentageOrdered By: Aj Holley on 02-04-2025 Eosinophils/100 WBC (Bld) 1.7 % 0-5 [facility] Erythrocyte distribution wid th ratioOrdered By: Aj Holley on 02-04-2025 Erythrocyte distribution width (RBC) [Ratio] 15.9 % High 11.6-14.6 [facility] Erythrocyte distribution wid th standard deviationOrdered By: Aj Holley on 02-04-2025 Erythrocyte distribution width (RBC) [Ratio] 51.4 fl High 35.1-43.9 [facility] Glomerular filtration rate ( GFR) estimation/1.73 sq m using serum, plasma, or whole bOrdered By: Aj Holley on 02-04-2025 GFR/1.73 sq M.predicted among non-blacks MDRD (S/P/Bld) [Vol rate/Area] 48 mL/min/{1.73_m2} Low >60 [facility] H AND P Exam - Hospitaliston 02-04-2025 H&P Exam - Hospitalist Normal [facility] Hematocrit Auto (Bld) [Volum e fraction]Ordered By: Ajanu Holley on 02-04-2025 Hematocrit (Bld) [Volume fraction] 34.1 % Low 37-47 [facility] Hemoglobin measurementOrdere d By: Aj Holley on 02-04-2025 Hemoglobin (Bld) [Mass/Vol] 10.7 g/dL Low 12.0-15.0 [facility] Immature granulocytes/100 WB C Auto (Bld)Ordered By: Aj Holley on 02-04-2025 Immature granulocytes/100 WBC (Bld) 0.400 % 0.0-0.9 [facility] L499.0042on 02-04-2025 Trop T High Sen 133 ng/L Invalid Interpretation Code <=14 [facility] Comment on above: Result Comment: Crit ical Result(s) Called at 0915: by: SHARONA EASLEY. ??Results read back by same. Performed By: #### L 499.0042 ####[facility] [address] [place], [address] L499.0043on 02-04-2025 Trop T High Sen 139 ng/L Invalid Interpretation Code <=14 [facility] Comment on above: Result Comment: Crit ical Result(s) Called at 1125: by: Michael meza Hope.??Results read back by same. Performed By: #### L 499.0043 ####[facility] [address], [address] L501.4021on 02-04-2025 Trop T High Sen 139 ng/L Invalid Interpretation Code <=14 [facility] Comment on above: Result Comment: Crit ical Result(s) Called at 0809: by: SHARONA GO.??Results read back by same. Performed By: #### L 503.7505, L501.4021 ####[facility] [address] [place], [address] L503.7505on 02-04-2025 Natriuretic peptide B (Bld) [Mass/Vol] 6247 pg/mL High <=1800 [facility] Comment on above: Result Comment: Hear t Failure Unlikely: < 300 pg/mLHeart Failure Likely< 50 Years: > 450 pg/mL50-75 Years: > 900 pg/mL>75 Years: > 1800 pg/mL Performed By: #### L 503.7508, L501.4021 ####[facility] [address] [facility] [address] [place], [place], [address] MCV (mean corpuscular volume ) determinationOrdered By: Aj Holley on 02-04-2025 MCV (RBC) [Entitic vol] 88.8 fL 81-99 [facility] Mean corpuscular hemoglobin (MCH) determinationOrdered By: Aj Holley on 02-04-2025 MCH (RBC) [Entitic mass] 27.9 pg 27.0-32.0 [facility] Monocyte percentageOrdered B y: Aj Holley on 02-04-2025 Monocytes/100 WBC (Bld) 6.6 % 0-10 [facility] Natriuretic peptide.B prohor hayley N-Terminal [Mass/volume] in Serum or PlasmaOrdered By: Aj Holley on 02-04-2025 Natriuretic peptide.B prohormone N-Terminal [Mass/Vol] 6247 pg/mL High <1800 [facility] Neutrophil percentageOrdered By: Aj Holley on 02-04-2025 Neutrophils/100 WBC (Bld) 75.4 % High 47-70 [facility] Platelet countOrdered By: Dahlia Holley on 02-04-2025 Platelets (Bld) [#/Vol] 185 10*3/uL 150-450 [facility] Potassium measurement (mass/ volume)Ordered By: Aj Holley on 02-04-2025 Potassium (Unsp spec) [Mass/Vol] 3.9 mmol/L 3.3-5.1 [facility] RBC Auto (Bld) [#/Vol]Ordere d By: Aj Holley on 02-04-2025 RBC (Bld) [#/Vol] 3.84 10*6/uL Low 4.2-5.4 [facility] Serum creatinine measurement (mass/volume)Ordered By: Aj Holley on 02-04-2025 Creatinine [Mass/Vol] 1.14 mg/dL 0.70-1.20 [facility] Serum glucose measurement (m ass/volume)Ordered By: Aj Holley on 02-04-2025 Glucose [Mass/Vol] 132 mg/dL High 70-99 [facility] Serum or plasma calcium melanie urement (mass/volume)Ordered By: Aj Holley on 02-04-2025 Calcium [Mass/Vol] 8.9 mg/dL 7.6-11.0 [facility] Serum or plasma urea nitroge n measurement (mass/volume)Ordered By: Aj Holley on 02-04-2025 Urea nitrogen [Mass/Vol] 15 mg/dL 4-19 [facility] Sodium levelOrdered By: Reynaldo Holley on 02-04-2025 Sodium [Moles/Vol] 137 mmol/L 133-145 [facility] Troponin T.cardiac [Mass/vol ume] in Serum or Plasma by High sensitivity methodOrdered By: Aj Holley on 02-04-2025 Troponin T.cardiac High sensitivity method [Mass/Vol] 139 ng/L High <14 [facility] Troponin T.cardiac High sensitivity method [Mass/Vol] 133 ng/L High <14 [facility] Troponin T.cardiac High sensitivity method [Mass/Vol] 139 ng/L High <14 [facility] White blood cell (WBC) count Ordered By: Aj Holley on 02-04-2025 WBC (Bld) [#/Vol] 11.2 10*3/uL High 4.4-11.0 [facility] Cardiology Visit Reporton Cardiology Visit Report Normal [facility] Basic Metabolic Profile (BMP )on 01-30-2025 BUN Normal 4-19 [facility] Comment on above: Result Comment: Canc elled via OM: Order cancelled - Patient discharged Performed By: #### L 100.0100, L500.2500 ####[facility] [address] [place], [address] BUN/CRE Normal 10-20 [facility] Comment on above: Result Comment: Canc elled via OM: Order cancelled - Patient discharged Performed By: #### L 100.0100, L500.2500 ####[facility] [address] [place], [address] Calcium Normal 7.6-11.0 [facility] Comment on above: Result Comment: Canc elled via OM: Order cancelled - Patient discharged Performed By: #### L 100.0100, L500.2500 ####[facility] [address] [place], [address] CL Normal 98-108 [facility] Comment on above: Result Comment: Canc elled via OM: Order cancelled - Patient discharged Performed By: #### L 100.0100, L500.2500 ####[facility] [address] [place], [address] CO2 Normal 21.0-32.0 [facility] Comment on above: Result Comment: Canc elled via OM: Order cancelled - Patient discharged Performed By: #### L 100.0100, L500.2500 ####[facility] [address] [place], [address] CREAT,SERUM Normal 0.70-1.20 [facility] Comment on above: Result Comment: Canc elled via OM: Order cancelled - Patient discharged Performed By: #### L 100.0100, L500.2500 ####[facility] [address] [place], [address] eGFR Normal >60 [facility] Comment on above: Result Comment: Canc elled via OM: Order cancelled - Patient discharged Performed By: #### L 100.0100, L500.2500 ####[facility] [address] [place], [address] GAP Normal 5-15 [facility] Comment on above: Result Comment: Canc elled via OM: Order cancelled - Patient discharged Performed By: #### L 100.0100, L500.2500 ####[facility] [address] [place], [address] GLU Normal 70-99 [facility] Comment on above: Result Comment: Canc elled via OM: Order cancelled - Patient discharged Performed By: #### L 100.0100, L500.2500 ####[facility] [address] [place], [address] Potassium Normal 3.3-5.1 [facility] Comment on above: Result Comment: Canc elled via OM: Order cancelled - Patient discharged Performed By: #### L 100.0100, L500.2500 ####[facility] [address] [place], [address] Basic Metabolic Profile (BMP) Normal 133-145 [facility] Comment on above: Result Comment: Canc elled via OM: Order cancelled - Patient discharged Performed By: #### L 100.0100, L500.2500 ####[facility] [address] [place], [address] CBC W/Diff, Automatedon 06-0 Absolute Neut Normal 2.0-7.7 [facility] Comment on above: Result Comment: Canc elled via OM: Order cancelled - Patient discharged Performed By: #### L 100.0100, L500.2500 ####[facility] [address] [place], [address] HCT Normal 37-47 [facility] Comment on above: Result Comment: Canc elled via OM: Order cancelled - Patient discharged Performed By: #### L 100.0100, L500.2500 ####[facility] [address] [place], [address] HGB Normal 12.0-15.0 [facility] Comment on above: Result Comment: Canc elled via OM: Order cancelled - Patient discharged Performed By: #### L 100.0100, L500.2500 ####[facility] [address] [place], [address] MCH Normal 27.0-32.0 [facility] Comment on above: Result Comment: Canc elled via OM: Order cancelled - Patient discharged Performed By: #### L 100.0100, L500.2500 ####[facility] [address] [place], [address] MCHC Normal 32-36 [facility] Comment on above: Result Comment: Canc elled via OM: Order cancelled - Patient discharged Performed By: #### L 100.0100, L500.2500 ####[facility] [address] [place], [address] MCV Normal 81-99 [facility] Comment on above: Result Comment: Canc elled via OM: Order cancelled - Patient discharged Performed By: #### L 100.0100, L500.2500 ####[facility] [address] [place], [address] NEUT% Normal 47-70 [facility] Comment on above: Result Comment: Canc elled via OM: Order cancelled - Patient discharged Performed By: #### L 100.0100, L500.2500 ####[facility] [address] [place], [address] PLT Normal 150-450 [facility] Comment on above: Result Comment: Canc elled via OM: Order cancelled - Patient discharged Performed By: #### L 100.0100, L500.2500 ####[facility] [address] [place], [address] RBC Normal 4.2-5.4 [facility] Comment on above: Result Comment: Canc elled via OM: Order cancelled - Patient discharged Performed By: #### L 100.0100, L500.2500 ####[facility] [address] [place], [address] RDW CV Normal 11.6-14.6 [facility] Comment on above: Result Comment: Canc elled via OM: Order cancelled - Patient discharged Performed By: #### L 100.0100, L500.2500 ####[facility] [address] [place], [address] RDW SD Normal 35.1-43.9 [facility] Comment on above: Result Comment: Canc elled via OM: Order cancelled - Patient discharged Performed By: #### L 100.0100, L500.2500 ####[facility] [address] [place], [address] WBC Normal 4.4-11.0 [facility] Comment on above: Result Comment: Canc elled via OM: Order cancelled - Patient discharged Performed By: #### L 100.0100, L500.2500 ####[facility] [address] [place], [address] Basic Metabolic Profile (BMP )on 01-29-2025 BUN Normal 4-19 [facility] Comment on above: Result Comment: Canc elled via OM: Order cancelled - Patient discharged Performed By: #### L 100.0100, L500.2500 ####[facility] [address] [place], [address] BUN/CRE Normal 10-20 [facility] Comment on above: Result Comment: Canc elled via OM: Order cancelled - Patient discharged Performed By: #### L 100.0100, L500.2500 ####[facility] [address] [place], [address] Calcium Normal 7.6-11.0 [facility] Comment on above: Result Comment: Canc elled via OM: Order cancelled - Patient discharged Performed By: #### L 100.0100, L500.2500 ####[facility] [address] [place], [address] CL Normal 98-108 [facility] Comment on above: Result Comment: Canc elled via OM: Order cancelled - Patient discharged Performed By: #### L 100.0100, L500.2500 ####[facility] [address] [place], [address] CO2 Normal 21.0-32.0 [facility] Comment on above: Result Comment: Canc elled via OM: Order cancelled - Patient discharged Performed By: #### L 100.0100, L500.2500 ####[facility] [address] [place], [address] CREAT,SERUM Normal 0.70-1.20 [facility] Comment on above: Result Comment: Canc elled via OM: Order cancelled - Patient discharged Performed By: #### L 100.0100, L500.2500 ####[facility] [address] [place], [address] eGFR Normal >60 [facility] Comment on above: Result Comment: Canc elled via OM: Order cancelled - Patient discharged Performed By: #### L 100.0100, L500.2500 ####[facility] [address] [place], [address] GAP Normal 5-15 [facility] Comment on above: Result Comment: Canc elled via OM: Order cancelled - Patient discharged Performed By: #### L 100.0100, L500.2500 ####[facility] [address] [place], [address] GLU Normal 70-99 [facility] Comment on above: Result Comment: Canc elled via OM: Order cancelled - Patient discharged Performed By: #### L 100.0100, L500.2500 ####[facility] [address] [place], [address] Potassium Normal 3.3-5.1 [facility] Comment on above: Result Comment: Canc elled via OM: Order cancelled - Patient discharged Performed By: #### L 100.0100, L500.2500 ####[facility] [address] [place], [address] Basic Metabolic Profile (BMP) Normal 133-145 [facility] Comment on above: Result Comment: Canc elled via OM: Order cancelled - Patient discharged Performed By: #### L 100.0100, L500.2500 ####[facility] [address] [place], [address] CBC W/Diff, Automatedon 06-0 -2024 Absolute Neut Normal 2.0-7.7 [facility] Comment on above: Result Comment: Canc elled via OM: Order cancelled - Patient discharged Performed By: #### L 100.0100, L500.2500 ####[facility] [address] [place], [address] HCT Normal 37-47 [facility] Comment on above: Result Comment: Canc elled via OM: Order cancelled - Patient discharged Performed By: #### L 100.0100, L500.2500 ####[facility] [address] [place], [address] HGB Normal 12.0-15.0 [facility] Comment on above: Result Comment: Canc elled via OM: Order cancelled - Patient discharged Performed By: #### L 100.0100, L500.2500 ####[facility] [address] [place], [address] MCH Normal 27.0-32.0 [facility] Comment on above: Result Comment: Canc elled via OM: Order cancelled - Patient discharged Performed By: #### L 100.0100, L500.2500 ####[facility] [address] [place], [address] MCHC Normal 32-36 [facility] Comment on above: Result Comment: Canc elled via OM: Order cancelled - Patient discharged Performed By: #### L 100.0100, L500.2500 ####[facility] [address] [place], [address] MCV Normal 81-99 [facility] Comment on above: Result Comment: Canc elled via OM: Order cancelled - Patient discharged Performed By: #### L 100.0100, L500.2500 ####[facility] [address] [place], [address] NEUT% Normal 47-70 [facility] Comment on above: Result Comment: Canc elled via OM: Order cancelled - Patient discharged Performed By: #### L 100.0100, L500.2500 ####[facility] [address] [place], [address] PLT Normal 150-450 [facility] Comment on above: Result Comment: Canc elled via OM: Order cancelled - Patient discharged Performed By: #### L 100.0100, L500.2500 ####[facility] [address] [place], [address] RBC Normal 4.2-5.4 [facility] Comment on above: Result Comment: Canc elled via OM: Order cancelled - Patient discharged Performed By: #### L 100.0100, L500.2500 ####[facility] [address] [place], [address] RDW CV Normal 11.6-14.6 [facility] Comment on above: Result Comment: Canc elled via OM: Order cancelled - Patient discharged Performed By: #### L 100.0100, L500.2500 ####[facility] [address] [place], [address] RDW SD Normal 35.1-43.9 [facility] Comment on above: Result Comment: Canc elled via OM: Order cancelled - Patient discharged Performed By: #### L 100.0100, L500.2500 ####[facility] [address] [place], [address] WBC Normal 4.4-11.0 [facility] Comment on above: Result Comment: Canc elled via OM: Order cancelled - Patient discharged Performed By: #### L 100.0100, L500.2500 ####[facility] [address] [place], [address] Basic Metabolic Profile (BMP )on 01-28-2025 BUN Normal 4-19 [facility] Comment on above: Result Comment: Canc elled via OM: Order cancelled - Patient discharged Performed By: #### L 500.2500, L100.0100 ####[facility] [address] [place], [address] BUN/CRE Normal 10-20 [facility] Comment on above: Result Comment: Canc elled via OM: Order cancelled - Patient discharged Performed By: #### L 500.2500, L100.0100 ####[facility] [address] [place], [address] Calcium Normal 7.6-11.0 [facility] Comment on above: Result Comment: Canc elled via OM: Order cancelled - Patient discharged Performed By: #### L 500.2500, L100.0100 ####[facility] [address] [place], [address] CL Normal 98-108 [facility] Comment on above: Result Comment: Canc elled via OM: Order cancelled - Patient discharged Performed By: #### L 500.2500, L100.0100 ####[facility] [address] [place], [address] CO2 Normal 21.0-32.0 [facility] Comment on above: Result Comment: Canc elled via OM: Order cancelled - Patient discharged Performed By: #### L 500.2500, L100.0100 ####[facility] [address] [place], [address] CREAT,SERUM Normal 0.70-1.20 [facility] Comment on above: Result Comment: Canc elled via OM: Order cancelled - Patient discharged Performed By: #### L 500.2500, L100.0100 ####[facility] [address] [place], [address] eGFR Normal >60 [facility] Comment on above: Result Comment: Canc elled via OM: Order cancelled - Patient discharged Performed By: #### L 500.2500, L100.0100 ####[facility] [address] [place], [address] GAP Normal 5-15 [facility] Comment on above: Result Comment: Canc elled via OM: Order cancelled - Patient discharged Performed By: #### L 500.2500, L100.0100 ####[facility] [address] [place], [address] GLU Normal 70-99 [facility] Comment on above: Result Comment: Canc elled via OM: Order cancelled - Patient discharged Performed By: #### L 500.2500, L100.0100 ####[facility] [address] [place], [address] Potassium Normal 3.3-5.1 [facility] Comment on above: Result Comment: Canc elled via OM: Order cancelled - Patient discharged Performed By: #### L 500.2500, L100.0100 ####[facility] [address] [place], [address] Basic Metabolic Profile (BMP) Normal 133-145 [facility] Comment on above: Result Comment: Canc elled via OM: Order cancelled - Patient discharged Performed By: #### L 500.2500, L100.0100 ####[facility] [address] [place], [address] CBC W/Diff, Automatedon 05-3 Absolute Neut Normal 2.0-7.7 [facility] Comment on above: Result Comment: Canc elled via OM: Order cancelled - Patient discharged Performed By: #### L 500.2500, L100.0100 ####[facility] [address] [place], [address] HCT Normal 37-47 [facility] Comment on above: Result Comment: Canc elled via OM: Order cancelled - Patient discharged Performed By: #### L 500.2500, L100.0100 ####[facility] [address] [place], [address] HGB Normal 12.0-15.0 [facility] Comment on above: Result Comment: Canc elled via OM: Order cancelled - Patient discharged Performed By: #### L 500.2500, L100.0100 ####[facility] [address] [place], [address] MCH Normal 27.0-32.0 [facility] Comment on above: Result Comment: Canc elled via OM: Order cancelled - Patient discharged Performed By: #### L 500.2500, L100.0100 ####[facility] [address] [place], [address] MCHC Normal 32-36 [facility] Comment on above: Result Comment: Canc elled via OM: Order cancelled - Patient discharged Performed By: #### L 500.2500, L100.0100 ####[facility] [address] [place], [address] MCV Normal 81-99 [facility] Comment on above: Result Comment: Canc elled via OM: Order cancelled - Patient discharged Performed By: #### L 500.2500, L100.0100 ####[facility] [address] [place], [address] NEUT% Normal 47-70 [facility] Comment on above: Result Comment: Canc elled via OM: Order cancelled - Patient discharged Performed By: #### L 500.2500, L100.0100 ####[facility] [address] [place], [address] PLT Normal 150-450 [facility] Comment on above: Result Comment: Canc elled via OM: Order cancelled - Patient discharged Performed By: #### L 500.2500, L100.0100 ####[facility] [address] [place], [address] RBC Normal 4.2-5.4 [facility] Comment on above: Result Comment: Canc elled via OM: Order cancelled - Patient discharged Performed By: #### L 500.2500, L100.0100 ####[facility] [address] [place], [address] RDW CV Normal 11.6-14.6 [facility] Comment on above: Result Comment: Canc elled via OM: Order cancelled - Patient discharged Performed By: #### L 500.2500, L100.0100 ####[facility] [address] [place], [address] RDW SD Normal 35.1-43.9 [facility] Comment on above: Result Comment: Canc elled via OM: Order cancelled - Patient discharged Performed By: #### L 500.2500, L100.0100 ####[facility] [address] [place], [address] WBC Normal 4.4-11.0 [facility] Comment on above: Result Comment: Canc elled via OM: Order cancelled - Patient discharged Performed By: #### L 500.2500, L100.0100 ####[facility] [address] [place], [address] Basic Metabolic Profile (BMP )on 01-27-2025 BUN Normal 4-19 [facility] Comment on above: Result Comment: Canc elled via OM: Order cancelled - Patient discharged Performed By: #### L 500.2500, L100.0100 ####[facility] [address] [place], [address] BUN/CRE Normal 10-20 [facility] Comment on above: Result Comment: Canc elled via OM: Order cancelled - Patient discharged Performed By: #### L 500.2500, L100.0100 ####[facility] [address] [place], [address] Calcium Normal 7.6-11.0 [facility] Comment on above: Result Comment: Canc elled via OM: Order cancelled - Patient discharged Performed By: #### L 500.2500, L100.0100 ####[facility] [address] [place], [address] CL Normal 98-108 [facility] Comment on above: Result Comment: Canc elled via OM: Order cancelled - Patient discharged Performed By: #### L 500.2500, L100.0100 ####[facility] [address] [place], [address] CO2 Normal 21.0-32.0 [facility] Comment on above: Result Comment: Canc elled via OM: Order cancelled - Patient discharged Performed By: #### L 500.2500, L100.0100 ####[facility] [address] [place], [address] CREAT,SERUM Normal 0.70-1.20 [facility] Comment on above: Result Comment: Canc elled via OM: Order cancelled - Patient discharged Performed By: #### L 500.2500, L100.0100 ####[facility] [address] [place], [address] eGFR Normal >60 [facility] Comment on above: Result Comment: Canc elled via OM: Order cancelled - Patient discharged Performed By: #### L 500.2500, L100.0100 ####[facility] [address] [place], [address] GAP Normal 5-15 [facility] Comment on above: Result Comment: Canc elled via OM: Order cancelled - Patient discharged Performed By: #### L 500.2500, L100.0100 ####[facility] [address] [place], [address] GLU Normal 70-99 [facility] Comment on above: Result Comment: Canc elled via OM: Order cancelled - Patient discharged Performed By: #### L 500.2500, L100.0100 ####[facility] [address] [place], [address] Potassium Normal 3.3-5.1 [facility] Comment on above: Result Comment: Canc elled via OM: Order cancelled - Patient discharged Performed By: #### L 500.2500, L100.0100 ####[facility] [address] [place], [address] Basic Metabolic Profile (BMP) Normal 133-145 [facility] Comment on above: Result Comment: Canc elled via OM: Order cancelled - Patient discharged Performed By: #### L 500.2500, L100.0100 ####[facility] [address] [place], [address] CBC W/Diff, Automatedon 05-3 0-2024 Absolute Neut Normal 2.0-7.7 [facility] Comment on above: Result Comment: Canc elled via OM: Order cancelled - Patient discharged Performed By: #### L 500.2500, L100.0100 ####[facility] [address] [place], [address] HCT Normal 37-47 [facility] Comment on above: Result Comment: Canc elled via OM: Order cancelled - Patient discharged Performed By: #### L 500.2500, L100.0100 ####[facility] [address] [place], [address] HGB Normal 12.0-15.0 [facility] Comment on above: Result Comment: Canc elled via OM: Order cancelled - Patient discharged Performed By: #### L 500.2500, L100.0100 ####[facility] [address] [place], [address] MCH Normal 27.0-32.0 [facility] Comment on above: Result Comment: Canc elled via OM: Order cancelled - Patient discharged Performed By: #### L 500.2500, L100.0100 ####[facility] [address] [place], [address] MCHC Normal 32-36 [facility] Comment on above: Result Comment: Canc elled via OM: Order cancelled - Patient discharged Performed By: #### L 500.2500, L100.0100 ####[facility] [address] [place], [address] MCV Normal 81-99 [facility] Comment on above: Result Comment: Canc elled via OM: Order cancelled - Patient discharged Performed By: #### L 500.2500, L100.0100 ####[facility] [address] [place], [address] NEUT% Normal 47-70 [facility] Comment on above: Result Comment: Canc elled via OM: Order cancelled - Patient discharged Performed By: #### L 500.2500, L100.0100 ####[facility] [address] [place], [address] PLT Normal 150-450 [facility] Comment on above: Result Comment: Canc elled via OM: Order cancelled - Patient discharged Performed By: #### L 500.2500, L100.0100 ####[facility] [address] [place], [address] RBC Normal 4.2-5.4 [facility] Comment on above: Result Comment: Canc elled via OM: Order cancelled - Patient discharged Performed By: #### L 500.2500, L100.0100 ####[facility] [address] [place], [address] RDW CV Normal 11.6-14.6 [facility] Comment on above: Result Comment: Canc elled via OM: Order cancelled - Patient discharged Performed By: #### L 500.2500, L100.0100 ####[facility] [address] [place], [address] RDW SD Normal 35.1-43.9 [facility] Comment on above: Result Comment: Canc elled via OM: Order cancelled - Patient discharged Performed By: #### L 500.2500, L100.0100 ####[facility] [address] [place], [address] WBC Normal 4.4-11.0 [facility] Comment on above: Result Comment: Canc elled via OM: Order cancelled - Patient discharged Performed By: #### L 500.2500, L100.0100 ####[facility] [address] [place], [address] Absolute lymphocyte countOrd ered By: Jg Bryan on 01-26-2025 Lymphocytes Auto (Unsp spec) [#/Vol] 2.24 10*3/uL 0.83-4.51 [facility] Anion gap in Serum or Plasma Ordered By: Jg Bryan on 01-26-2025 Anion gap [Moles/Vol] 10 mmol/L 5-15 [facility] Automated lymphocyte count a s percentage of total leukocytesOrdered By: Jg Bryan on 01-26-2025 Lymphocytes/100 WBC Auto (Unsp spec) 25.1 % 19-41 [facility] BUN/creatinine ratioOrdered By: Jg Bryan on 01-26-2025 Urea nitrogen/Creatinine [Mass ratio] 30.2 mg/mg High 10- [facility] Basic Metabolic Profile (BMP )on 01-26-2025 BUN Normal 4-19 [facility] Comment on above: Result Comment: Canc elled via OM: Order cancelled - Patient discharged Performed By: #### L 500.2500, L100.0100 ####[facility] [address] [place], [address] BUN/CRE Normal 10- [facility] Comment on above: Result Comment: Canc elled via OM: Order cancelled - Patient discharged Performed By: #### L 500.2500, L100.0100 ####[facility] [address] [place], [address] Calcium Normal 7.6-11.0 [facility] Comment on above: Result Comment: Canc elled via OM: Order cancelled - Patient discharged Performed By: #### L 500.2500, L100.0100 ####[facility] [address] [place], [address] CL Normal 98-108 [facility] Comment on above: Result Comment: Canc elled via OM: Order cancelled - Patient discharged Performed By: #### L 500.2500, L100.0100 ####[facility] [address] [place], [address] CO2 Normal 21.0-32.0 [facility] Comment on above: Result Comment: Canc elled via OM: Order cancelled - Patient discharged Performed By: #### L 500.2500, L100.0100 ####[facility] [address] [place], [address] CREAT,SERUM Normal 0.70-1.20 [facility] Comment on above: Result Comment: Canc elled via OM: Order cancelled - Patient discharged Performed By: #### L 500.2500, L100.0100 ####[facility] [address] [place], [address] eGFR Normal >60 [facility] Comment on above: Result Comment: Canc elled via OM: Order cancelled - Patient discharged Performed By: #### L 500.2500, L100.0100 ####[facility] [address] [place], [address] GAP Normal 5-15 [facility] Comment on above: Result Comment: Canc elled via OM: Order cancelled - Patient discharged Performed By: #### L 500.2500, L100.0100 ####[facility] [address] [place], [address] GLU Normal 70-99 [facility] Comment on above: Result Comment: Canc elled via OM: Order cancelled - Patient discharged Performed By: #### L 500.2500, L100.0100 ####[facility] [address] [place], [address] Potassium Normal 3.3-5.1 [facility] Comment on above: Result Comment: Canc elled via OM: Order cancelled - Patient discharged Performed By: #### L 500.2500, L100.0100 ####[facility] [address] [place], [address] Basic Metabolic Profile (BMP) Normal 133-145 [facility] Comment on above: Result Comment: Canc elled via OM: Order cancelled - Patient discharged Performed By: #### L 500.2500, L100.0100 ####[facility] [address] [place], [address] BUN/CRE 30.2 RATIO High 10-20 [facility] Comment on above: Performed By: #### L 503.7505, L500.2500, L100.0100, L501.5200 ####[facility] [address] [place], [address] Calcium [Mass/Vol] 10.2 mg/dL Normal 7.6-11.0 [facility] Comment on above: Performed By: #### L 503.7505, L500.2500, L100.0100, L501.5200 ####[facility] [address] [place], [address] Chloride [Moles/Vol] 104 mmol/L Normal 98-108 [facility] Comment on above: Performed By: #### L 503.7505, L500.2500, L100.0100, L501.5200 ####[facility] [address] [place], [address] CO2 [Moles/Vol] 27.1 mmol/L Normal 21.0-32.0 [facility] Comment on above: Performed By: #### L 503.7505, L500.2500, L100.0100, L501.5200 ####[facility] [address] [place], [address] Creatinine [Mass/Vol] 1.16 mg/dL Normal 0.70-1.20 [facility] [facility] Comment on above: Performed By: #### L 503.7505, L500.2500, L100.0100, L501.5200 ####[facility] [address] [place], [address] ECRCL 38.24 ml/min Low 50-250 [facility] Comment on above: Performed By: #### L 503.7505, L500.2500, L100.0100, L501.5200 ####[facility] [address] [place], [address] GAP 10 Normal 5-15 [facility] Comment on above: Performed By: #### L 503.7505, L500.2500, L100.0100, L501.5200 ####[facility] [address] [place], [address] GFR/1.73 sq M.predicted among non-blacks MDRD (S/P/Bld) [Vol rate/Area] 47 mL/min/{1.73_m2} Low >60 [facility] Comment on above: Result Comment: mL/m in/1.73m2 CKD-EPI Creatinine Equation (2020) Performed By: #### L 503.7505, L500.2500, L100.0100, L501.5200 ####[facility] [address] [place], [address] Glucose [Mass/Vol] 211 mg/dL High 70-99 [facility] Comment on above: Performed By: #### L 503.7505, L500.2500, L100.0100, L501.5200 ####[facility] [address] [place], [address] Potassium [Moles/Vol] 4.1 mmol/L Normal 3.3-5.1 [facility] Comment on above: Performed By: #### L 503.7505, L500.2500, L100.0100, L501.5200 ####[facility] [address] [place], [address] Sodium [Moles/Vol] 141 mmol/L Normal 133-145 [facility] Comment on above: Performed By: #### L 503.7505, L500.2500, L100.0100, L501.5200 ####[facility] [address] [place], [address] Urea nitrogen [Mass/Vol] 35 mg/dL High 4-19 [facility] Comment on above: Performed By: #### L 503.7505, L500.2500, L100.0100, L501.5200 ####[facility] [address] [place], [address] Basophil percentageOrdered B y: Jg Miguelinaes on 01-26-2025 Basophils/100 WBC (Bld) 0.1 % 0-1 [facility] CBC W/Diff, Automatedon 12-30 Absolute Neut Normal 2.0-7.7 [facility] Comment on above: Result Comment: Canc elled via OM: Order cancelled - Patient discharged Performed By: #### L 500.2500, L100.0100 ####[facility] [address] [place], [address] HCT Normal 37-47 [facility] Comment on above: Result Comment: Canc elled via OM: Order cancelled - Patient discharged Performed By: #### L 500.2500, L100.0100 ####[facility] [address] [place], [address] HGB Normal 12.0-15.0 [facility] Comment on above: Result Comment: Canc elled via OM: Order cancelled - Patient discharged Performed By: #### L 500.2500, L100.0100 ####[facility] [address] [place], [address] MCH Normal 27.0-32.0 [facility] Comment on above: Result Comment: Canc elled via OM: Order cancelled - Patient discharged Performed By: #### L 500.2500, L100.0100 ####[facility] [address] [place], [address] MCHC Normal 32-36 [facility] Comment on above: Result Comment: Canc elled via OM: Order cancelled - Patient discharged Performed By: #### L 500.2500, L100.0100 ####[facility] [address] [place], [address] MCV Normal 81-99 [facility] Comment on above: Result Comment: Canc elled via OM: Order cancelled - Patient discharged Performed By: #### L 500.2500, L100.0100 ####[facility] [address] [place], [address] NEUT% Normal 47-70 [facility] Comment on above: Result Comment: Canc elled via OM: Order cancelled - Patient discharged Performed By: #### L 500.2500, L100.0100 ####[facility] [address] [place], [address] PLT Normal 150-450 [facility] Comment on above: Result Comment: Canc elled via OM: Order cancelled - Patient discharged Performed By: #### L 500.2500, L100.0100 ####[facility] [address] [place], [address] RBC Normal 4.2-5.4 [facility] Comment on above: Result Comment: Canc elled via OM: Order cancelled - Patient discharged Performed By: #### L 500.2500, L100.0100 ####[facility] [address] [place], [address] RDW CV Normal 11.6-14.6 [facility] Comment on above: Result Comment: Canc elled via OM: Order cancelled - Patient discharged Performed By: #### L 500.2500, L100.0100 ####[facility] [address] [place], [address] RDW SD Normal 35.1-43.9 [facility] Comment on above: Result Comment: Canc elled via OM: Order cancelled - Patient discharged Performed By: #### L 500.2500, L100.0100 ####[facility] [address] [place], [address] WBC Normal 4.4-11.0 [facility] Comment on above: Result Comment: Canc elled via OM: Order cancelled - Patient discharged Performed By: #### L 500.2500, L100.0100 ####[facility] [address] [place], [address] Absolute Lymph 2.24 X10 3/uL Normal 0.83-4.51 [facility] Comment on above: Performed By: #### L 503.7505, L500.2500, L100.0100, L501.5200 ####[facility] [address] [place], [address] Absolute Neut 5.8 X10 3/uL Normal 2.0-7.7 [facility] Comment on above: Performed By: #### L 503.7505, L500.2500, L100.0100, L501.5200 ####[facility] [address] [place], [address] Basophils/100 WBC (Bld) 0.1 % Normal 0-1 [facility] Comment on above: Performed By: #### L 503.7505, L500.2500, L100.0100, L501.5200 ####[facility] [address] [place], [address] Eosinophils/100 WBC (Bld) 2.8 % Normal 0-5 [facility] Comment on above: Performed By: #### L 503.7505, L500.2500, L100.0100, L501.5200 ####[facility] [address] [place], [address] Erythrocyte distribution width (RBC) [Ratio] 15.9 % High 11.6-14.6 [facility] Comment on above: Performed By: #### L 503.7505, L500.2500, L100.0100, L501.5200 ####[facility] [address] [place], [address] Hematocrit (Bld) [Volume fraction] 37.9 % Normal 37-47 [facility] Comment on above: Performed By: #### L 503.7505, L500.2500, L100.0100, L501.5200 ####[facility] [address] [place], [address] Hemoglobin (Bld) [Mass/Vol] 11.8 g/dL Low 12.0-15.0 [facility] Comment on above: Performed By: #### L 503.7505, L500.2500, L100.0100, L501.5200 ####[facility] [address] [place], [address] IG% 0.300 Normal 0.0-0.9 [facility] Comment on above: Result Comment: IG% - Immature Granulocytes (promyelocytes, myelocytes andmetamyelocytes) > 1% indicates that a LEFT SHIFT is Present. Performed By: #### L 503.7505, L500.2500, L100.0100, L501.5200 ####[facility] [address] [place], [address] Lymphocytes/100 WBC (Bld) 25.1 % Normal 19-41 [facility] Comment on above: Performed By: #### L 503.7505, L500.2500, L100.0100, L501.5200 ####[facility] [address] [place], [address] MCH (RBC) [Entitic mass] 27.3 pg Normal 27.0-32.0 [facility] Comment on above: Performed By: #### L 503.7505, L500.2500, L100.0100, L501.5200 ####[facility] [address] [place], [address] MCHC (RBC) [Mass/Vol] 31.1 g/dL Low 32-36 [facility] Comment on above: Performed By: #### L 503.7505, L500.2500, L100.0100, L501.5200 ####[facility] [address] [place], [address] MCV (RBC) [Entitic vol] 87.5 fL Normal 81-99 [facility] Comment on above: Performed By: #### L 503.7505, L500.2500, L100.0100, L501.5200 ####[facility] [address] [place], [address] Monocytes/100 WBC (Bld) 6.7 % Normal 0-10 [facility] Comment on above: Performed By: #### L 503.7505, L500.2500, L100.0100, L501.5200 ####[facility] [address] [place], [address] Neutrophils/100 WBC (Bld) 65.0 % Normal 47-70 [facility] Comment on above: Performed By: #### L 503.7505, L500.2500, L100.0100, L501.5200 ####[facility] [address] [place], [address] Nucleated RBC (Bld) [#/Vol] 0 10*3/uL Normal 0-5 [facility] Comment on above: Performed By: #### L 503.7505, L500.2500, L100.0100, L501.5200 ####[facility] [address] [place], [address] Platelet mean volume (Bld) [Entitic vol] 10.8 fL Normal 6.2-12.0 [facility] Comment on above: Performed By: #### L 503.7505, L500.2500, L100.0100, L501.5200 ####[facility] [address] [place], [address] Platelets (Bld) [#/Vol] 247 10*3/uL Normal 150-450 [facility] Comment on above: Performed By: #### L 503.7505, L500.2500, L100.0100, L501.5200 ####[facility] [address] [place], [address] RBC (Bld) [#/Vol] 4.33 10*6/uL Normal 4.2-5.4 [facility] Comment on above: Performed By: #### L 503.7505, L500.2500, L100.0100, L501.5200 ####[facility] [address] [place], [address] RDW SD 51.0 fl High 35.1-43.9 [facility] Comment on above: Performed By: #### L 503.7505, L500.2500, L100.0100, L501.5200 ####[facility] [address] [place], [address] WBC (Bld) [#/Vol] 8.9 10*3/uL Normal 4.4-11.0 [facility] Comment on above: Performed By: #### L 503.7505, L500.2500, L100.0100, L501.5200 ####[facility] [address] [place], [address] Carbon dioxide, total [Moles /volume] in Central venous bloodOrdered By: gJ Bryan on 01-26-2025 CO2 [Moles/Vol] 27.1 mmol/L 21.0-32.0 [facility] Chest PA and Lateralon 01-26 Chest PA and Lateral Normal [facility] Chloride assayOrdered By: Matilde Bryan on 01-26-2025 Chloride [Moles/Vol] 104 mmol/L 98-108 [facility] Emergency Department Summary on 01-26-2025 Emergency Department Summary Normal [facility] Eosinophil percentageOrdered By: Jg Bryan on 01-26-2025 Eosinophils/100 WBC (Bld) 2.8 % 0-5 [facility] Erythrocyte distribution wid th ratioOrdered By: Jg Bryan on 01-26-2025 Erythrocyte distribution width (RBC) [Ratio] 15.9 % High 11.6-14.6 [facility] Erythrocyte distribution wid th standard deviationOrdered By: Jg Bryan on 01-26-2025 Erythrocyte distribution width (RBC) [Ratio] 51.0 fl High 35.1-43.9 [facility] Glomerular filtration rate ( GFR) estimation/1.73 sq m using serum, plasma, or whole bOrdered By: Jg Bryan on 01-26-2025 GFR/1.73 sq M.predicted among non-blacks MDRD (S/P/Bld) [Vol rate/Area] 47 mL/min/{1.73_m2} Low >60 [facility] Hematocrit Auto (Bld) [Volum e fraction]Ordered By: Jg Bryan on 01-26-2025 Hematocrit (Bld) [Volume fraction] 37.9 % 37-47 [facility] Hemoglobin measurementOrdere d By: Jg Bryan on 01-26-2025 Hemoglobin (Bld) [Mass/Vol] 11.8 g/dL Low 12.0-15.0 [facility] Immature granulocytes/100 WB C Auto (Bld)Ordered By: Jg Bryan on 01-26-2025 Immature granulocytes/100 WBC (Bld) 0.300 % 0.0-0.9 [facility] L503.7505on 01-26-2025 Natriuretic peptide B (Bld) [Mass/Vol] 3334 pg/mL High <=1800 [facility] Comment on above: Result Comment: Hear t Failure Unlikely: < 300 pg/mLHeart Failure Likely< 50 Years: > 450 pg/mL50-75 Years: > 900 pg/mL>75 Years: > 1800 pg/mL Performed By: #### L 503.7505, L500.2500, L100.0100, L501.5200 ####[facility] [address] [place], [address] MCV (mean corpuscular volume ) determinationOrdered By: Jg Bryan on 01-26-2025 MCV (RBC) [Entitic vol] 87.5 fL 81-99 [facility] Magnesiumon 01-26-2025 Magnesium [Mass/Vol] 2.7 mg/dL High 1.5-2.2 [facility] Comment on above: Performed By: #### L 503.7505, L500.2500, L100.0100, L501.5200 ####[facility] [address] [place], [address] Magnesium measurement (mass/ volume)Ordered By: Jg Bryan on 01-26-2025 Magnesium (Unsp spec) [Mass/Vol] 2.7 mg/dL High 1.5-2.2 [facility] Mean corpuscular hemoglobin (MCH) determinationOrdered By: Jg Bryan on 01-26-2025 MCH (RBC) [Entitic mass] 27.3 pg 27.0-32.0 [facility] Monocyte percentageOrdered B y: Jg Bryan on 01-26-2025 Monocytes/100 WBC (Bld) 6.7 % 0-10 [facility] Natriuretic peptide.B prohor hayley N-Terminal [Mass/volume] in Serum or PlasmaOrdered By: Jg Bryan on 01-26-2025 Natriuretic peptide.B prohormone N-Terminal [Mass/Vol] 3334 pg/mL High <1800 [facility] Neutrophil percentageOrdered By: Jg Bryan on 01-26-2025 Neutrophils/100 WBC (Bld) 65.0 % 47-70 [facility] Platelet countOrdered By: Matilde Bryan on 01-26-2025 Platelets (Bld) [#/Vol] 247 10*3/uL 150-450 [facility] Potassium measurement (mass/ volume)Ordered By: Jg Bryan on 01-26-2025 Potassium (Unsp spec) [Mass/Vol] 4.1 mmol/L 3.3-5.1 [facility] RBC Auto (Bld) [#/Vol]Ordere d By: Jg Bryan on 01-26-2025 RBC (Bld) [#/Vol] 4.33 10*6/uL 4.2-5.4 [facility] Serum creatinine measurement (mass/volume)Ordered By: Jg Bryan on 01-26-2025 Creatinine [Mass/Vol] 1.16 mg/dL 0.70-1.20 [facility] Serum glucose measurement (m ass/volume)Ordered By: Jg Bryan on 01-26-2025 Glucose [Mass/Vol] 211 mg/dL High 70-99 [facility] Serum or plasma calcium melanie urement (mass/volume)Ordered By: Jg Bryan on 01-26-2025 Calcium [Mass/Vol] 10.2 mg/dL 7.6-11.0 [facility] Serum or plasma urea nitroge n measurement (mass/volume)Ordered By: Jg Bryan on 01-26-2025 Urea nitrogen [Mass/Vol] 35 mg/dL High 4-19 [facility] Sodium levelOrdered By: Cosme Bryan on 01-26-2025 Sodium [Moles/Vol] 141 mmol/L 133-145 [facility] White blood cell (WBC) count Ordered By: Jg Bryan on 01-26-2025 WBC (Bld) [#/Vol] 8.9 10*3/uL 4.4-11.0 [facility] Basic Metabolic Profile (BMP )on 01-25-2025 BUN Normal 4- [facility] Comment on above: Result Comment: Canc elled via OM: Order cancelled - Patient discharged Performed By: #### L 100.0100, L500.2500 ####[facility] [address] [place], [place], [address] BUN/CRE Normal 10- [facility] Comment on above: Result Comment: Canc elled via OM: Order cancelled - Patient discharged Performed By: #### L 100.0100, L500.2500 ####[facility] [address] [place], [address] Calcium Normal 7.6-11.0 [facility] Comment on above: Result Comment: Canc elled via OM: Order cancelled - Patient discharged Performed By: #### L 100.0100, L500.2500 ####[facility] [address] [place], [address] CL Normal 98-108 [facility] Comment on above: Result Comment: Canc elled via OM: Order cancelled - Patient discharged Performed By: #### L 100.0100, L500.2500 ####[facility] [address] [place], [address] CO2 Normal 21.0-32.0 [facility] Comment on above: Result Comment: Canc elled via OM: Order cancelled - Patient discharged Performed By: #### L 100.0100, L500.2500 ####[facility] [address] [place], [address] CREAT,SERUM Normal 0.70-1.20 [facility] Comment on above: Result Comment: Canc elled via OM: Order cancelled - Patient discharged Performed By: #### L 100.0100, L500.2500 ####[facility] [address] [place], [address] eGFR Normal >60 [facility] Comment on above: Result Comment: Canc elled via OM: Order cancelled - Patient discharged Performed By: #### L 100.0100, L500.2500 ####[facility] [address] [place], [address] GAP Normal 5-15 [facility] Comment on above: Result Comment: Canc elled via OM: Order cancelled - Patient discharged Performed By: #### L 100.0100, L500.2500 ####[facility] [address] [place], [address] GLU Normal 70-99 [facility] Comment on above: Result Comment: Canc elled via OM: Order cancelled - Patient discharged Performed By: #### L 100.0100, L500.2500 ####[facility] [address] [place], [address] Potassium Normal 3.3-5.1 [facility] Comment on above: Result Comment: Canc elled via OM: Order cancelled - Patient discharged Performed By: #### L 100.0100, L500.2500 ####[facility] [address] [place], [address] Basic Metabolic Profile (BMP) Normal 133-145 [facility] Comment on above: Result Comment: Canc elled via OM: Order cancelled - Patient discharged Performed By: #### L 100.0100, L500.2500 ####[facility] [address] [place], [address] CBC W/Diff, Automatedon 05-2 Absolute Neut Normal 2.0-7.7 [facility] Comment on above: Result Comment: Canc elled via OM: Order cancelled - Patient discharged Performed By: #### L 100.0100, L500.2500 ####[facility] [address] [place], [address] HCT Normal 37-47 [facility] Comment on above: Result Comment: Canc elled via OM: Order cancelled - Patient discharged Performed By: #### L 100.0100, L500.2500 ####[facility] [address] [place], [address] HGB Normal 12.0-15.0 [facility] Comment on above: Result Comment: Canc elled via OM: Order cancelled - Patient discharged Performed By: #### L 100.0100, L500.2500 ####[facility] [address] [place], [address] MCH Normal 27.0-32.0 [facility] Comment on above: Result Comment: Canc elled via OM: Order cancelled - Patient discharged Performed By: #### L 100.0100, L500.2500 ####[facility] [address] [place], [address] MCHC Normal 32-36 [facility] Comment on above: Result Comment: Canc elled via OM: Order cancelled - Patient discharged Performed By: #### L 100.0100, L500.2500 ####[facility] [address] [place], [address] MCV Normal 81-99 [facility] Comment on above: Result Comment: Canc elled via OM: Order cancelled - Patient discharged Performed By: #### L 100.0100, L500.2500 ####[facility] [address] [place], [address] NEUT% Normal 47-70 [facility] Comment on above: Result Comment: Canc elled via OM: Order cancelled - Patient discharged Performed By: #### L 100.0100, L500.2500 ####[facility] [address] [place], [address] PLT Normal 150-450 [facility] Comment on above: Result Comment: Canc elled via OM: Order cancelled - Patient discharged Performed By: #### L 100.0100, L500.2500 ####[facility] [address] [place], [address] RBC Normal 4.2-5.4 [facility] Comment on above: Result Comment: Canc elled via OM: Order cancelled - Patient discharged Performed By: #### L 100.0100, L500.2500 ####[facility] [address] [place], [address] RDW CV Normal 11.6-14.6 [facility] Comment on above: Result Comment: Canc elled via OM: Order cancelled - Patient discharged Performed By: #### L 100.0100, L500.2500 ####[facility] [address] [place], [address] RDW SD Normal 35.1-43.9 [facility] Comment on above: Result Comment: Canc elled via OM: Order cancelled - Patient discharged Performed By: #### L 100.0100, L500.2500 ####[facility] [address] [place], [address] WBC Normal 4.4-11.0 [facility] Comment on above: Result Comment: Canc elled via OM: Order cancelled - Patient discharged Performed By: #### L 100.0100, L500.2500 ####[facility] [address] [place], [address] Culture, Blood (WB)on 2024 CUB Blood cultures x2, from two different sites No growth in 5 days. Normal [facility] Comment on above: Performed By: #### M 200.1000 ####[facility] [address] [place], [address] Performed By: #### M 200.1000, L503.6005 ####[facility] [address] [place], [address] Performed By: #### L 100.0100, L300.3900, L501.4021, L503.6005, L500.4050, L300.4310, M200.1000 ####[facility] [address] [place], [address] Absolute lymphocyte countOrd ered By: Melba Hartmann on 01-24-2025 Lymphocytes Auto (Unsp spec) [#/Vol] 2.19 10*3/uL 0.83-4.51 [facility] Anion gap in Serum or Plasma Ordered By: Melba Hartmann on 01-24-2025 Anion gap [Moles/Vol] 12 mmol/L 5-15 [facility] Automated lymphocyte count a s percentage of total leukocytesOrdered By: Melba Mikhailjanene on 01-24-2025 Lymphocytes/100 WBC Auto (Unsp spec) 19.3 % - [facility] BUN/creatinine ratioOrdered By: Melbanereida Hartmann on 01-24-2025 Urea nitrogen/Creatinine [Mass ratio] 35.2 mg/mg High 06-19 [facility] Basic Metabolic Profile (BMP )on 01-24-2025 BUN/CRE 35.2 RATIO High 06-19 [facility] Comment on above: Performed By: #### L 500.2500, L100.0100 ####[facility] [address] [place], [address] Calcium [Mass/Vol] 10.1 mg/dL Normal 7.6-11.0 [facility] Comment on above: Performed By: #### L 500.2500, L100.0100 ####[facility] [address] [place], [address] Chloride [Moles/Vol] 102 mmol/L Normal 98-108 [facility] Comment on above: Performed By: #### L 500.2500, L100.0100 ####[facility] [address] [place], [address] CO2 [Moles/Vol] 23.7 mmol/L Normal 21.0-32.0 [facility] Comment on above: Performed By: #### L 500.2500, L100.0100 ####[facility] [address] [place], [address] Creatinine [Mass/Vol] 1.31 mg/dL High 0.70-1.20 [facility] Comment on above: Performed By: #### L 500.2500, L100.0100 ####[facility] [address] [place], [address] ECRCL 33.41 ml/min Low 50-250 [facility] Comment on above: Performed By: #### L 500.2500, L100.0100 ####[facility] [address] [place], [address] GAP 12 Normal 5-15 [facility] Comment on above: Performed By: #### L 500.2500, L100.0100 ####[facility] [address] [place], [address] GFR/1.73 sq M.predicted among non-blacks MDRD (S/P/Bld) [Vol rate/Area] 41 mL/min/{1.73_m2} Low >60 [facility] Comment on above: Result Comment: mL/m in/1.73m2 CKD-EPI Creatinine Equation (2020) Performed By: #### L 500.2500, L100.0100 ####[facility] [address] [place], [address] Glucose [Mass/Vol] 133 mg/dL High 70-99 [facility] Comment on above: Performed By: #### L 500.2500, L100.0100 ####[facility] [address] [place], [address] Potassium [Moles/Vol] 3.5 mmol/L Normal 3.3-5.1 [facility] Comment on above: Performed By: #### L 500.2500, L100.0100 ####[facility] [address] [place], [address] Sodium [Moles/Vol] 138 mmol/L Normal 133-145 [facility] Comment on above: Performed By: #### L 500.2500, L100.0100 ####[facility] [address] [place], [address] Urea nitrogen [Mass/Vol] 46 mg/dL High 4-19 [facility] Comment on above: Performed By: #### L 500.2500, L100.0100 ####[facility] [address] [place], [address] Basophil percentageOrdered B y: Melba Hartmann on 01-24-2025 Basophils/100 WBC (Bld) 0.2 % 0-1 [facility] Bedside Glucoseon 01-24-2025 FINGERSTICK GLU 167 mg/dL High 74-106 [facility] Comment on above: Result Comment: KATARINA GEMENT OF PATIENT CARE PER NURSING PROTOCOL Performed By: #### L 501.080 ####[facility] [address] [place], [address] FINGERSTICK GLU 143 mg/dL High 74-106 [facility] Comment on above: Result Comment: KATARINA MILLERENT OF PATIENT CARE PER NURSING PROTOCOL Performed By: #### L 501.080 ####[facility] [address] [place], [address] CBC W/Diff, Automatedon 12-30 Absolute Lymph 2.19 X10 3/uL Normal 0.83-4.51 [facility] Comment on above: Performed By: #### L 500.2500, L100.0100 ####[facility] [address] [place], [address] Absolute Neut 8.2 X10 3/uL High 2.0-7.7 [facility] Comment on above: Performed By: #### L 500.2500, L100.0100 ####[facility] [address] [place], [address] Basophils/100 WBC (Bld) 0.2 % Normal 0-1 [facility] Comment on above: Performed By: #### L 500.2500, L100.0100 ####[facility] [address] [place], [address] Eosinophils/100 WBC (Bld) 0.2 % Normal 0-5 [facility] Comment on above: Performed By: #### L 500.2500, L100.0100 ####[facility] [address] [place], [address] Erythrocyte distribution width (RBC) [Ratio] 15.8 % High 11.6-14.6 [facility] Comment on above: Performed By: #### L 500.2500, L100.0100 ####[facility] [address] [place], [address] Hematocrit (Bld) [Volume fraction] 40.7 % Normal 37-47 [facility] Comment on above: Performed By: #### L 500.2500, L100.0100 ####[facility] [address] [place], [address] Hemoglobin (Bld) [Mass/Vol] 12.7 g/dL Normal 12.0-15.0 [facility] Comment on above: Performed By: #### L 500.2500, L100.0100 ####[facility] [address] [place], [address] IG% 0.400 Normal 0.0-0.9 [facility] Comment on above: Result Comment: IG% - Immature Granulocytes (promyelocytes, myelocytes andmetamyelocytes) > 1% indicates that a LEFT SHIFT is Present. Performed By: #### L 500.2500, L100.0100 ####[facility] [address] [place], [address] Lymphocytes/100 WBC (Bld) 19.3 % Normal 19-41 [facility] Comment on above: Performed By: #### L 500.2500, L100.0100 ####[facility] [address] [place], [address] MCH (RBC) [Entitic mass] 27.4 pg Normal 27.0-32.0 [facility] Comment on above: Performed By: #### L 500.2500, L100.0100 ####[facility] [address] [place], [address] MCHC (RBC) [Mass/Vol] 31.2 g/dL Low 32-36 [facility] Comment on above: Performed By: #### L 500.2500, L100.0100 ####[facility] [address] [place], [address] MCV (RBC) [Entitic vol] 87.7 fL Normal 81-99 [facility] Comment on above: Performed By: #### L 500.2500, L100.0100 ####[facility] [address] [place], [address] Monocytes/100 WBC (Bld) 7.4 % Normal 0-10 [facility] Comment on above: Performed By: #### L 500.2500, L100.0100 ####[facility] [address] [place], [address] Neutrophils/100 WBC (Bld) 72.5 % High 47-70 [facility] Comment on above: Performed By: #### L 500.2500, L100.0100 ####[facility] [address] [place], [address] Nucleated RBC (Bld) [#/Vol] 0 10*3/uL Normal 0-5 [facility] Comment on above: Performed By: #### L 500.2500, L100.0100 ####[facility] [address] [place], [address] Platelet mean volume (Bld) [Entitic vol] 10.9 fL Normal 6.2-12.0 [facility] Comment on above: Performed By: #### L 500.2500, L100.0100 ####[facility] [address] [place], [address] Platelets (Bld) [#/Vol] 297 10*3/uL Normal 150-450 [facility] Comment on above: Performed By: #### L 500.2500, L100.0100 ####[facility] [address] [place], [address] RBC (Bld) [#/Vol] 4.64 10*6/uL Normal 4.2-5.4 [facility] Comment on above: Performed By: #### L 500.2500, L100.0100 ####[facility] [address] [place], [address] RDW SD 50.9 fl High 35.1-43.9 [facility] Comment on above: Performed By: #### L 500.2500, L100.0100 ####[facility] [address] [place], [address] WBC (Bld) [#/Vol] 11.3 10*3/uL High 4.4-11.0 [facility] Comment on above: Performed By: #### L 500.2500, L100.0100 ####[facility] [address] [place], [address] Carbon dioxide, total [Moles /volume] in Central venous bloodOrdered By: Melba Hartmann on 01-24-2025 CO2 [Moles/Vol] 23.7 mmol/L 21.0-32.0 [facility] Chloride assayOrdered By: Marifer Hartmann on 01-24-2025 Chloride [Moles/Vol] 102 mmol/L 98-108 [facility] Discharge Instructionon 12-30 Discharge Instruction Normal [facility] Electrocardiogram reportOrde red By: Marcelina Soto on 01-24-2025 EKG study [facility] Work Phone: [phone] Eosinophil percentageOrdered By: Melba Hartmann on 01-24-2025 Eosinophils/100 WBC (Bld) 0.2 % 0-5 [facility] Erythrocyte distribution wid th ratioOrdered By: Melba Hartmann on 01-24-2025 Erythrocyte distribution width (RBC) [Ratio] 15.8 % High 11.6-14.6 [facility] Erythrocyte distribution wid th standard deviationOrdered By: Melba Hartmann on 01-24-2025 Erythrocyte distribution width (RBC) [Ratio] 50.9 fl High 35.1-43.9 [facility] Glomerular filtration rate ( GFR) estimation/1.73 sq m using serum, plasma, or whole bOrdered By: Melba Hartmann on 01-24-2025 GFR/1.73 sq M.predicted among non-blacks MDRD (S/P/Bld) [Vol rate/Area] 41 mL/min/{1.73_m2} Low >60 [facility] Gl[facility] deOrdered By: Melba Hartmann on 01-24-2025 Glucose [Mass/Vol] 167 mg/dL High 74-106 [facility] Hematocrit Auto (Bld) [Volum e fraction]Ordered By: Melba Hartmann on 01-24-2025 Hematocrit (Bld) [Volume fraction] 40.7 % 37-47 [facility] Hemoglobin measurementOrdere d By: Melba Hartmann on 01-24-2025 Hemoglobin (Bld) [Mass/Vol] 12.7 g/dL 12.0-15.0 [facility] Immature granulocytes/100 WB C Auto (Bld)Ordered By: Melba Hartmann 01-24-2025 Immature granulocytes/100 WBC (Bld) 0.400 % 0.0-0.9 [facility] MCV (mean corpuscular volume ) determinationOrdered By: Melba Hartmann 01-24-2025 MCV (RBC) [Entitic vol] 87.7 fL 81-99 [facility] Mean corpuscular hemoglobin (MCH) determinationOrdered By: Melba Hartmann 01-24-2025 MCH (RBC) [Entitic mass] 27.4 pg 27.0-32.0 [facility] Monocyte percentageOrdered B y: Melba Hartmann on 01-24-2025 Monocytes/100 WBC (Bld) 7.4 % 0-10 [facility] Neutrophil percentageOrdered By: Melba Hartmann 01-24-2025 Neutrophils/100 WBC (Bld) 72.5 % High 47-70 [facility] Platelet countOrdered By: Marifer Hartmann on 01-24-2025 Platelets (Bld) [#/Vol] 297 10*3/uL 150-450 [facility] Potassium measurement (mass/ volume)Ordered By: Melba Hartmann on 01-24-2025 Potassium (Unsp spec) [Mass/Vol] 3.5 mmol/L 3.3-5.1 [facility] RBC Auto (Bld) [#/Vol]Ordere d By: Melba Hartmann on 01-24-2025 RBC (Bld) [#/Vol] 4.64 10*6/uL 4.2-5.4 [facility] Serum creatinine measurement (mass/volume)Ordered By: Melba Hartmann on 01-24-2025 Creatinine [Mass/Vol] 1.31 mg/dL High 0.70-1.20 [facility] Serum glucose measurement (m ass/volume)Ordered By: Melba Hartmann on 01-24-2025 Glucose [Mass/Vol] 133 mg/dL High 70-99 [facility] Serum or plasma calcium melanie urement (mass/volume)Ordered By: Melba Hartmann on 01-24-2025 Calcium [Mass/Vol] 10.1 mg/dL 7.6-11.0 [facility] Serum or plasma urea nitroge n measurement (mass/volume)Ordered By: Melba Hartmann on 01-24-2025 Urea nitrogen [Mass/Vol] 46 mg/dL High 4-19 [facility] Sodium levelOrdered By: Melba Hartmann on 01-24-2025 Sodium [Moles/Vol] 138 mmol/L 133-145 [facility] White blood cell (WBC) count Ordered By: Melba Hartmann on 01-24-2025 WBC (Bld) [#/Vol] 11.3 10*3/uL High 4.4-11.0 [facility] Basic Metabolic Profile (BMP )on 01-23-2025 BUN/CRE 33.0 RATIO High 10-20 [facility] Comment on above: Performed By: #### L 100.0100, L500.2500 ####[facility] [address] [place], [address] Calcium [Mass/Vol] 10.8 mg/dL Normal 7.6-11.0 [facility] Comment on above: Performed By: #### L 100.0100, L500.2500 ####[facility] [address] [place], [address] Chloride [Moles/Vol] 98 mmol/L Normal 98-108 [facility] Comment on above: Performed By: #### L 100.0100, L500.2500 ####[facility] [address] [place], [address] CO2 [Moles/Vol] 25.4 mmol/L Normal 21.0-32.0 [facility] Comment on above: Performed By: #### L 100.0100, L500.2500 ####[facility] [address] [place], [address] Creatinine [Mass/Vol] 1.32 mg/dL High 0.70-1.20 [facility] Comment on above: Performed By: #### L 100.0100, L500.2500 ####[facility] [address] [place], [address] ECRCL 32.84 ml/min Low 50-250 [facility] Comment on above: Performed By: #### L 100.0100, L500.2500 ####[facility] [address] [place], [address] GAP 12 Normal 5-15 [facility] Comment on above: Performed By: #### L 100.0100, L500.2500 ####[facility] [address] [place], [address] GFR/1.73 sq M.predicted among non-blacks MDRD (S/P/Bld) [Vol rate/Area] 41 mL/min/{1.73_m2} Low >60 [facility] Comment on above: Result Comment: mL/m in/1.73m2 CKD-EPI Creatinine Equation (2020) Performed By: #### L 100.0100, L500.2500 ####[facility] [address] [place], [address] Glucose [Mass/Vol] 200 mg/dL High 70-99 [facility] Comment on above: Performed By: #### L 100.0100, L500.2500 ####[facility] [address] [place], [address] Potassium [Moles/Vol] 5.2 mmol/L High 3.3-5.1 [facility] Comment on above: Result Comment: Hemo lysis present, Results??could be affected.?? Performed By: #### L 100.0100, L500.2500 ####[facility] [address] [place], [address] Sodium [Moles/Vol] 135 mmol/L Normal 133-145 [facility] Comment on above: Performed By: #### L 100.0100, L500.2500 ####[facility] [address] [place], [address] Urea nitrogen [Mass/Vol] 44 mg/dL High 4-19 [facility] Comment on above: Performed By: #### L 100.0100, L500.2500 ####[facility] [address] [place], [address] Bedside Glucoseon 01-23-2025 FINGERSTICK GLU 294 mg/dL High 74-106 [facility] Comment on above: Result Comment: KATARINA GEMENT OF PATIENT CARE PER NURSING PROTOCOL Performed By: #### L 501.080 ####[facility] [address] [place], [address] FINGERSTICK GLU 314 mg/dL High 74-106 [facility] Comment on above: Result Comment: KATARINA GEMENT OF PATIENT CARE PER NURSING PROTOCOL Performed By: #### L 501.080 ####[facility] [address] [place], [address] FINGERSTICK GLU 291 mg/dL High 74-106 [facility] Comment on above: Result Comment: KATARINA GEMENT OF PATIENT CARE PER NURSING PROTOCOL Performed By: #### L 501.080 ####[facility] [address] [place], [address] FINGERSTICK GLU 214 mg/dL High 74-106 [facility] Comment on above: Result Comment: KATARINA GEMENT OF PATIENT CARE PER NURSING PROTOCOL Performed By: #### L 501.080 ####[facility] [address] [place], [address] CBC W/Diff, Automatedon 05-2 Absolute Lymph 0.74 X10 3/uL Low 0.83-4.51 [facility] Comment on above: Performed By: #### L 100.0100, L500.2500 ####[facility] [address] [place], [address] Absolute Neut 10.9 X10 3/uL High 2.0-7.7 [facility] Comment on above: Performed By: #### L 100.0100, L500.2500 ####[facility] [address] [place], [address] Basophils/100 WBC (Bld) 0.1 % Normal 0-1 [facility] Comment on above: Performed By: #### L 100.0100, L500.2500 ####[facility] [address] [place], [address] Eosinophils/100 WBC (Bld) 0.0 % Normal 0-5 [facility] Comment on above: Performed By: #### L 100.0100, L500.2500 ####[facility] [address] [place], [address] Erythrocyte distribution width (RBC) [Ratio] 15.8 % High 11.6-14.6 [facility] Comment on above: Performed By: #### L 100.0100, L500.2500 ####[facility] [address] [place], [address] Hematocrit (Bld) [Volume fraction] 41.8 % Normal 37-47 [facility] Comment on above: Performed By: #### L 100.0100, L500.2500 ####[facility] [address] [place], [address] Hemoglobin (Bld) [Mass/Vol] 13.1 g/dL Normal 12.0-15.0 [facility] Comment on above: Performed By: #### L 100.0100, L500.2500 ####[facility] [address] [place], [address] IG% 0.200 Normal 0.0-0.9 [facility] Comment on above: Result Comment: IG% - Immature Granulocytes (promyelocytes, myelocytes andmetamyelocytes) > 1% indicates that a LEFT SHIFT is Present. Performed By: #### L 100.0100, L500.2500 ####[facility] [address] [place], [address] Lymphocytes/100 WBC (Bld) 6.2 % Low 19-41 [facility] Comment on above: Performed By: #### L 100.0100, L500.2500 ####[facility] [address] [place], [address] MCH (RBC) [Entitic mass] 27.3 pg Normal 27.0-32.0 [facility] Comment on above: Performed By: #### L 100.0100, L500.2500 ####[facility] [address] [place], [address] MCHC (RBC) [Mass/Vol] 31.3 g/dL Low 32-36 [facility] Comment on above: Performed By: #### L 100.0100, L500.2500 ####[facility] [address] [place], [address] MCV (RBC) [Entitic vol] 87.1 fL Normal 81-99 [facility] Comment on above: Performed By: #### L 100.0100, L500.2500 ####[facility] [address] [place], [address] Monocytes/100 WBC (Bld) 2.7 % Normal 0-10 [facility] Comment on above: Performed By: #### L 100.0100, L500.2500 ####[facility] [address] [place], [address] Neutrophils/100 WBC (Bld) 90.8 % High 47-70 [facility] Comment on above: Performed By: #### L 100.0100, L500.2500 ####[facility] [address] [place], [address] Nucleated RBC (Bld) [#/Vol] 0 10*3/uL Normal 0-5 [facility] Comment on above: Performed By: #### L 100.0100, L500.2500 ####[facility] [address] [place], [address] Platelet mean volume (Bld) [Entitic vol] 11.6 fL Normal 6.2-12.0 [facility] Comment on above: Performed By: #### L 100.0100, L500.2500 ####[facility] [address] [place], [address] Platelets (Bld) [#/Vol] 322 10*3/uL Normal 150-450 [facility] Comment on above: Performed By: #### L 100.0100, L500.2500 ####[facility] [address] [place], [address] RBC (Bld) [#/Vol] 4.80 10*6/uL Normal 4.2-5.4 [facility] Comment on above: Performed By: #### L 100.0100, L500.2500 ####[facility] [address] [place], [address] RDW SD 50.2 fl High 35.1-43.9 [facility] Comment on above: Performed By: #### L 100.0100, L500.2500 ####[facility] [address] [place], [address] WBC (Bld) [#/Vol] 12.0 10*3/uL High 4.4-11.0 [facility] Comment on above: Performed By: #### L 100.0100, L500.2500 ####[facility] [address] [place], [address] Basic Metabolic Profile (BMP )on 01-22-2025 BUN/CRE 29.2 RATIO High 10-20 [facility] Comment on above: Performed By: #### L 500.2500, L100.0100 ####[facility] [address] [place], [address] Calcium [Mass/Vol] 10.2 mg/dL Normal 7.6-11.0 [facility] Comment on above: Performed By: #### L 500.2500, L100.0100 ####[facility] [address] [place], [address] Chloride [Moles/Vol] 99 mmol/L Normal 98-108 [facility] Comment on above: Performed By: #### L 500.2500, L100.0100 ####[facility] [address] [place], [address] CO2 [Moles/Vol] 27.0 mmol/L Normal 21.0-32.0 [facility] Comment on above: Performed By: #### L 500.2500, L100.0100 ####[facility] [address] [place], [address] Creatinine [Mass/Vol] 1.07 mg/dL Normal 0.70-1.20 [facility] Comment on above: Performed By: #### L 500.2500, L100.0100 ####[facility] [address] [place], [address] ECRCL 40.54 ml/min Low 50-250 [facility] Comment on above: Performed By: #### L 500.2500, L100.0100 ####[facility] [address] [place], [address] GAP 10 Normal 5-15 [facility] Comment on above: Performed By: #### L 500.2500, L100.0100 ####[facility] [address] [place], [address] GFR/1.73 sq M.predicted among non-blacks MDRD (S/P/Bld) [Vol rate/Area] 52 mL/min/{1.73_m2} Low >60 [facility] Comment on above: Result Comment: mL/m in/1.73m2 CKD-EPI Creatinine Equation (2020) Performed By: #### L 500.2500, L100.0100 ####[facility] [address] [place], [address] Glucose [Mass/Vol] 160 mg/dL High 70-99 [facility] Comment on above: Performed By: #### L 500.2500, L100.0100 ####[facility] [address] [place], [address] Potassium [Moles/Vol] 4.8 mmol/L Normal 3.3-5.1 [facility] Comment on above: Performed By: #### L 500.2500, L100.0100 ####[facility] [address] [place], [address] Sodium [Moles/Vol] 136 mmol/L Normal 133-145 [facility] Comment on above: Performed By: #### L 500.2500, L100.0100 ####[facility] [address] [place], [address] Urea nitrogen [Mass/Vol] 31 mg/dL High 4-19 [facility] Comment on above: Performed By: #### L 500.2500, L100.0100 ####[facility] [address] [place], [address] Bedside Glucoseon 01-22-2024 FINGERSTICK GLU 310 mg/dL High 74-106 [facility] Comment on above: Result Comment: KATARINA GEMENT OF PATIENT CARE PER NURSING PROTOCOL Performed By: #### L 501.080 ####[facility] [address] [place], [address] FINGERSTICK GLU 269 mg/dL High 74-106 [facility] Comment on above: Result Comment: KATARINA GEMENT OF PATIENT CARE PER NURSING PROTOCOL Performed By: #### L 501.080 ####[facility] [address] [place], [address] FINGERSTICK GLU 232 mg/dL High 74-106 [facility] Comment on above: Result Comment: KATARINA GEMENT OF PATIENT CARE PER NURSING PROTOCOL Performed By: #### L 501.080 ####[facility] [address] [place], [address] FINGERSTICK GLU 183 mg/dL High 74-106 [facility] Comment on above: Result Comment: KATARINA GEMENT OF PATIENT CARE PER NURSING PROTOCOL Performed By: #### L 501.080 ####[facility] [address] [place], [address] CBC W/Diff, Automatedon 05-2 Absolute Lymph 0.73 X10 3/uL Low 0.83-4.51 [facility] Comment on above: Performed By: #### L 500.2500, L100.0100 ####[facility] [address] [place], [address] Absolute Neut 11.7 X10 3/uL High 2.0-7.7 [facility] Comment on above: Performed By: #### L 500.2500, L100.0100 ####[facility] [address] [place], [address] Basophils/100 WBC (Bld) 0.0 % Normal 0-1 [facility] Comment on above: Performed By: #### L 500.2500, L100.0100 ####[facility] [address] [place], [address] Eosinophils/100 WBC (Bld) 0.0 % Normal 0-5 [facility] Comment on above: Performed By: #### L 500.2500, L100.0100 ####[facility] [address] [place], [address] Erythrocyte distribution width (RBC) [Ratio] 15.9 % High 11.6-14.6 [facility] Comment on above: Performed By: #### L 500.2500, L100.0100 ####[facility] [address] [place], [address] Hematocrit (Bld) [Volume fraction] 35.6 % Low 37-47 [facility] Comment on above: Performed By: #### L 500.2500, L100.0100 ####[facility] [address] [place], [address] Hemoglobin (Bld) [Mass/Vol] 11.1 g/dL Low 12.0-15.0 [facility] Comment on above: Performed By: #### L 500.2500, L100.0100 ####[facility] [address] [place], [address] IG% 0.500 Normal 0.0-0.9 [facility] Comment on above: Result Comment: IG% - Immature Granulocytes (promyelocytes, myelocytes andmetamyelocytes) > 1% indicates that a LEFT SHIFT is Present. Performed By: #### L 500.2500, L100.0100 ####[facility] [address] [place], [address] Lymphocytes/100 WBC (Bld) 5.7 % Low 19-41 [facility] Comment on above: Performed By: #### L 500.2500, L100.0100 ####[facility] [address] [place], [address] MCH (RBC) [Entitic mass] 27.3 pg Normal 27.0-32.0 [facility] Comment on above: Performed By: #### L 500.2500, L100.0100 ####[facility] [address] [place], [address] MCHC (RBC) [Mass/Vol] 31.2 g/dL Low 32-36 [facility] Comment on above: Performed By: #### L 500.2500, L100.0100 ####[facility] [address] [place], [address] MCV (RBC) [Entitic vol] 87.7 fL Normal 81-99 [facility] Comment on above: Performed By: #### L 500.2500, L100.0100 ####[facility] [address] [place], [place], [address] Monocytes/100 WBC (Bld) 2.4 % Normal 0-10 [facility] Comment on above: Performed By: #### L 500.2500, L100.0100 ####[facility] [address] [place], [address] Neutrophils/100 WBC (Bld) 91.4 % High 47-70 [facility] Comment on above: Performed By: #### L 500.2500, L100.0100 ####[facility] [address] [place], [address] Nucleated RBC (Bld) [#/Vol] 0 10*3/uL Normal 0-5 [facility] Comment on above: Performed By: #### L 500.2500, L100.0100 ####[facility] [address] [place], [address] Platelet mean volume (Bld) [Entitic vol] 11.1 fL Normal 6.2-12.0 [facility] Comment on above: Performed By: #### L 500.2500, L100.0100 ####[facility] [address] [place], [address] Platelets (Bld) [#/Vol] 281 10*3/uL Normal 150-450 [facility] Comment on above: Performed By: #### L 500.2500, L100.0100 ####[facility] [address] [place], [address] RBC (Bld) [#/Vol] 4.06 10*6/uL Low 4.2-5.4 [facility] Comment on above: Performed By: #### L 500.2500, L100.0100 ####[facility] [address] [place], [address] RDW SD 51.3 fl High 35.1-43.9 [facility] Comment on above: Performed By: #### L 500.2500, L100.0100 ####[facility] [address] [place], [address] WBC (Bld) [#/Vol] 12.8 10*3/uL High 4.4-11.0 [facility] Comment on above: Performed By: #### L 500.2500, L100.0100 ####[facility] [address] [place], [address] Urine Cultureon 01-22-2025 URC Normal [facility] Comment on above: Performed By: #### M 100.2200 ####[facility] [address] [place], [address] Basic Metabolic Profile (BMP )on 01-21-2025 BUN/CRE 19.6 RATIO Normal 10-20 [facility] Comment on above: Performed By: #### L 500.2500, L503.7505 ####[facility] [address] [place], [address] Calcium [Mass/Vol] 9.8 mg/dL Normal 7.6-11.0 [facility] Comment on above: Performed By: #### L 500.2500, L503.7505 ####[facility] [address] [place], [address] Chloride [Moles/Vol] 99 mmol/L Normal 98-108 [facility] Comment on above: Performed By: #### L 500.2500, L503.7505 ####[facility] [address] [place], [address] CO2 [Moles/Vol] 24.3 mmol/L Normal 21.0-32.0 [facility] Comment on above: Performed By: #### L 500.2500, L503.7505 ####[facility] [address] [place], [address] Creatinine [Mass/Vol] 1.19 mg/dL Normal 0.70-1.20 [facility] Comment on above: Performed By: #### L 500.2500, L503.7505 ####[facility] [address] [place], [address] ECRCL 36.45 ml/min Low 50-250 [facility] Comment on above: Performed By: #### L 500.2500, L503.7505 ####[facility] [address] [place], [address] GAP 14 Normal 5-15 [facility] Comment on above: Performed By: #### L 500.2500, L503.7505 ####[facility] [address] [place], [address] GFR/1.73 sq M.predicted among non-blacks MDRD (S/P/Bld) [Vol rate/Area] 46 mL/min/{1.73_m2} Low >60 [facility] Comment on above: Result Comment: mL/m in/1.73m2 CKD-EPI Creatinine Equation (2020) Performed By: #### L 500.2500, L503.7505 ####[facility] [address] [place], [address] Glucose [Mass/Vol] 208 mg/dL High 70-99 [facility] Comment on above: Performed By: #### L 500.2500, L503.7505 ####[facility] [address] [place], [address] Potassium [Moles/Vol] 4.0 mmol/L Normal 3.3-5.1 [facility] Comment on above: Performed By: #### L 500.2500, L503.7505 ####[facility] [address] [place], [address] Sodium [Moles/Vol] 138 mmol/L Normal 133-145 [facility] Comment on above: Performed By: #### L 500.2500, L503.7505 ####[facility] [address] [place], [address] Urea nitrogen [Mass/Vol] 23 mg/dL High 4-19 [facility] Comment on above: Performed By: #### L 500.2500, L503.7505 ####[facility] [address] [place], [address] Bedside Glucoseon 01-21-2025 FINGERSTICK GLU 271 mg/dL High 74-106 [facility] Comment on above: Result Comment: KATARINA GEMENT OF PATIENT CARE PER NURSING PROTOCOL Performed By: #### L 501.080 ####[facility] [address] [place], [address] FINGERSTICK GLU 254 mg/dL High 74-106 [facility] Comment on above: Result Comment: KATARINA GEMENT OF PATIENT CARE PER NURSING PROTOCOL Performed By: #### L 501.080 ####[facility] [address] [place], [address] FINGERSTICK GLU 323 mg/dL High 74-106 [facility] Comment on above: Result Comment: KATARINA GEMENT OF PATIENT CARE PER NURSING PROTOCOL Performed By: #### L 501.080 ####[facility] [address] [place], [address] FINGERSTICK GLU 202 mg/dL High 74-106 [facility] Comment on above: Result Comment: KATARINA GEMENT OF PATIENT CARE PER NURSING PROTOCOL Performed By: #### L 501.080 ####[facility] [address] [place], [address] CBC W/Diff, Automatedon 05-2 Absolute Lymph 0.79 X10 3/uL Low 0.83-4.51 [facility] Comment on above: Performed By: #### L 100.0100 ####[facility] [address] [place], [address] Absolute Neut 9.1 X10 3/uL High 2.0-7.7 [facility] Comment on above: Performed By: #### L 100.0100 ####[facility] [address] [place], [address] Basophils/100 WBC (Bld) 0.0 % Normal 0-1 [facility] Comment on above: Performed By: #### L 100.0100 ####[facility] [address] [place], [address] Eosinophils/100 WBC (Bld) 0.0 % Normal 0-5 [facility] Comment on above: Performed By: #### L 100.0100 ####[facility] [address] [place], [address] Erythrocyte distribution width (RBC) [Ratio] 16.0 % High 11.6-14.6 [facility] Comment on above: Performed By: #### L 100.0100 ####[facility] [address] [place], [address] Hematocrit (Bld) [Volume fraction] 35.0 % Low 37-47 [facility] Comment on above: Performed By: #### L 100.0100 ####[facility] [address] [place], [address] Hemoglobin (Bld) [Mass/Vol] 10.8 g/dL Low 12.0-15.0 [facility] Comment on above: Performed By: #### L 100.0100 ####[facility] [address] [place], [address] IG% 0.400 Normal 0.0-0.9 [facility] Comment on above: Result Comment: IG% - Immature Granulocytes (promyelocytes, myelocytes andmetamyelocytes) > 1% indicates that a LEFT SHIFT is Present. Performed By: #### L 100.0100 ####[facility] [address] [place], [address] Lymphocytes/100 WBC (Bld) 7.7 % Low 19-41 [facility] Comment on above: Performed By: #### L 100.0100 ####[facility] [address] [place], [address] MCH (RBC) [Entitic mass] 27.4 pg Normal 27.0-32.0 [facility] Comment on above: Performed By: #### L 100.0100 ####[facility] [address] [place], [address] MCHC (RBC) [Mass/Vol] 30.9 g/dL Low 32-36 [facility] Comment on above: Performed By: #### L 100.0100 ####[facility] [address] [place], [address] MCV (RBC) [Entitic vol] 88.8 fL Normal 81-99 [facility] Comment on above: Performed By: #### L 100.0100 ####[facility] [address] [place], [address] Monocytes/100 WBC (Bld) 3.5 % Normal 0-10 [facility] Comment on above: Performed By: #### L 100.0100 ####[facility] [address] [place], [address] Neutrophils/100 WBC (Bld) 88.4 % High 47-70 [facility] Comment on above: Performed By: #### L 100.0100 ####[facility] [address] [place], [address] Nucleated RBC (Bld) [#/Vol] 0 10*3/uL Normal 0-5 [facility] Comment on above: Performed By: #### L 100.0100 ####[facility] [address] [place], [address] Platelet mean volume (Bld) [Entitic vol] 11.0 fL Normal 6.2-12.0 [facility] Comment on above: Performed By: #### L 100.0100 ####[facility] [address] [place], [address] Platelets (Bld) [#/Vol] 245 10*3/uL Normal 150-450 [facility] Comment on above: Performed By: #### L 100.0100 ####[facility] [address] [place], [address] RBC (Bld) [#/Vol] 3.94 10*6/uL Low 4.2-5.4 [facility] Comment on above: Performed By: #### L 100.0100 ####[facility] [address] [place], [address] RDW SD 51.8 fl High 35.1-43.9 [facility] Comment on above: Performed By: #### L 100.0100 ####[facility] [address] [place], [address] WBC (Bld) [#/Vol] 10.3 10*3/uL Normal 4.4-11.0 [facility] Comment on above: Performed By: #### L 100.0100 ####[facility] [address] [place], [address] Chest 1 View (Portable)on Chest 1 View (Portable) Normal [facility] L503.7505on 01-21-2025 Natriuretic peptide B (Bld) [Mass/Vol] 05659 pg/mL High <=1800 [facility] Comment on above: Result Comment: Hear t Failure Unlikely: < 300 pg/mLHeart Failure Likely< 50 Years: > 450 pg/mL50-75 Years: > 900 pg/mL>75 Years: > 1800 pg/mL Performed By: #### L 500.2500, L503.7505 ####[facility] [address] [place], [address] Natriuretic peptide.B prohor hayley N-Terminal [Mass/volume] in Serum or PlasmaOrdered By: Sandeep Marie on 01-21-2025 Natriuretic peptide.B prohormone N-Terminal [Mass/Vol] 80904 pg/mL High <1800 [facility] 12 Lead EKGon 01-20-2025 12 Lead EKG Normal [facility] Activated partial thrombopla stin time (aPTT) in platelet poor plasma by coagulation aOrdered By: Jeevan Yoder on 01-20-2025 aPTT Coag (PPP) [Time] 26.9 s 24.1-36.2 [facility] Assessment of wrist artery p atency prior to arterial punctureOrdered By: Lucio Borden on 01-20-2025 Arterial patency Wrist artery --pre arterial puncture Positive [facility] Bedside Glucoseon 01-20-2025 FINGERSTICK GLU 265 mg/dL High [facility] Comment on above: Result Comment: KATARINA GEMENT OF PATIENT CARE PER NURSING PROTOCOL Performed By: #### L 501.080 ####[facility] [address] [facility] [address] FINGERSTICK GLU 389 mg/dL High [address] [place] [address] Comment on above: Result Comment: KATARINA GEMENT OF PATIENT CARE PER NURSING PROTOCOL Performed By: #### L 501.080 ####[facility] [address] [place], [address] FINGERSTICK GLU 361 mg/dL High [address] [place] [address] Comment on above: Result Comment: KATARINA GEMENT OF PATIENT CARE PER NURSING PROTOCOL Performed By: #### L 501.080 ####[facility] [address] [place], [address] FINGERSTICK GLU 338 mg/dL High [address] [place] [address] Comment on above: Result Comment: KATARINA GEMENT OF PATIENT CARE PER NURSING PROTOCOL Performed By: #### L 501.080 ####[facility] [address] [place], [address] Bilirubin Test strip Ql (U)O rdered By: Jeevan Yoder on 01-20-2025 Bilirubin Ql (U) Negative Negative [facility] Bilirubin, totalOrdered By: Jeevan Yoder on 01-20-2025 Bilirubin [Mass/Vol] 0.26 mg/dL 0.00-1.30 [facility] Blood Gases by CPSon 025 BARON TEST Positive Normal [facility] Comment on above: Performed By: #### L 9000.0800 ####[facility] [address] [place], [address] Base excess Calc (Bld) [Moles/Vol] 10 mmol/L High -2 to +2 [facility] Comment on above: Performed By: #### L 9000.0800 ####[facility] [address] [place], [address] Blood Gas Type ART Normal [facility] Comment on above: Performed By: #### L 9000.0800 ####[facility] [address] [place], [address] CO2 [Moles/Vol] 37 mmol/L Normal [facility] Comment on above: Performed By: #### L 9000.0800 ####[facility] [address] [place], [address] FI02 30.0 Normal [facility] Comment on above: Performed By: #### L 9000.0800 ####[facility] [address] [place], [address] HCO3 (Bld) [Moles/Vol] 35.5 mmol/L High 22-26 [facility] Comment on above: Performed By: #### L 9000.0800 ####[facility] [address] [place], [address] Normal [facility] Comment on above: Performed By: #### L 9000.0800 ####[facility] [address] [place], [address] O2 Delivery Dev BiPAP Normal [facility] Comment on above: Performed By: #### L 9000.0800 ####[facility] [address] [place], [address] pCO2 59.4 mmHg High 35-45 [facility] Comment on above: Performed By: #### L 9000.0800 ####[facility] [address] [place], [address] PEEP 8 Normal [facility] Comment on above: Performed By: #### L 9000.0800 ####[facility] [address] [place], [address] pH (Bld) 7.38 [pH] Normal 7.35-7.45 [facility] Comment on above: Performed By: #### L 9000.0800 ####[facility] [address] [place], [address] PO2 21 mmHG Invalid Interpretation Code 75-100 [facility] Comment on above: Performed By: #### L 9000.0800 ####[facility] [address] [place], [address] Read Back By Yes [facility] Comment on above: Performed By: #### L 9000.0800 ####[facility] [address] [place], [address] Results To tereletsky Normal [facility] Comment on above: Performed By: #### L 9000.0800 ####[facility] [address] [place], [address] RR 14 Normal [facility] Comment on above: Performed By: #### L 9000.0800 ####[facility] [address] [place], [address] SITE R Radial Normal [facility] Comment on above: Performed By: #### L 9000.0800 ####[facility] [address] [place], [address] SO2 32 Low 95-99 [facility] Comment on above: Performed By: #### L 9000.0800 ####[facility] [address] [place], [address] Time Given 16:55:40 Normal [facility] Comment on above: Performed By: #### L 8999.00 ####[facility] [address] [place], [address] Vt 500.0 mL Normal [facility] Comment on above: Performed By: #### L 8999.08 ####[facility] [address] [place], [address] BARON TEST Positive Normal [facility] Comment on above: Performed By: #### L 8999.0800 ####[facility] [address] [place], [address] Base excess Calc (Bld) [Moles/Vol] 5 mmol/L High -2 to +2 [facility] Comment on above: Performed By: #### L 8999.08 ####[facility] [address] [place], [address] Blood Gas Type ART Normal [facility] Comment on above: Performed By: #### L 8999.0800 ####[facility] [address] [place], [address] CO2 [Moles/Vol] 33 mmol/L Normal [facility] Comment on above: Performed By: #### L 8999.0800 ####[facility] [address] [place], [address] FI02 30.0 Normal [facility] Comment on above: Performed By: #### L 8999.08 ####[facility] [address] [place], [address] HCO3 (Bld) [Moles/Vol] 30.8 mmol/L High 22-26 [facility] Comment on above: Performed By: #### L 8999.0800 ####[facility] [address] [place], [address] Mode Not entered Normal [facility] Comment on above: Performed By: #### L 9000.0800 ####[facility] [address] [place], [address] O2 Delivery Dev BiPAP Normal [facility] Comment on above: Performed By: #### L 9000.0800 ####[facility] [address] [place], [address] pCO2 56.2 mmHg High 35-45 [facility] Comment on above: Performed By: #### L 9000.0800 ####[facility] [address] [place], [address] PEEP 8 Normal [facility] Comment on above: Performed By: #### L 9000.0800 ####[facility] [address] [place], [address] pH (Bld) 7.35 [pH] Normal 7.35-7.45 [facility] Comment on above: Performed By: #### L 9000.0800 ####[facility] [address] [place], [address] PO2 37 mmHG Invalid Interpretation Code 75-100 [facility] Comment on above: Performed By: #### L 9000.0800 ####[facility] [address] [place], [address] Read Back By Yes Normal [facility] Comment on above: Performed By: #### L 9000.0800 ####[facility] [address] [place], [address] RR 14 Normal [facility] Comment on above: Performed By: #### L 9000.0800 ####[facility] [address] [place], [address] SITE R Radial Normal [facility] Comment on above: Performed By: #### L 9000.0800 ####[facility] [address] [place], [address] SO2 66 Low 95-99 [facility] Comment on above: Performed By: #### L 9000.0800 ####[facility] [address] [place], [address] Vt 500.0 mL Normal [facility] Comment on above: Performed By: #### L 9000.0800 ####[facility] [address] [place], [address] BARON TEST Positive Normal [facility] Comment on above: Performed By: #### L 9000.0800 ####[facility] [address] [place], [address] Base excess Calc (Bld) [Moles/Vol] 5 mmol/L High -2 to +2 [facility] Comment on above: Performed By: #### L 9000.0800 ####[facility] [address] [place], [address] Blood Gas Type ART Normal [facility] Comment on above: Performed By: #### L 9000.0800 ####[facility] [address] [place], [address] CO2 [Moles/Vol] 34 mmol/L Normal [facility] Comment on above: Performed By: #### L 9000.0800 ####[facility] [address] [place], [address] Comment Normal [facility] Comment on above: Result Comment: AVAP S 500vt 14rr 100% +8 maxP=26 minP=18 Performed By: #### L 9000.0800 ####[facility] [address] [place], [address] FI02 100.0 Normal [facility] Comment on above: Performed By: #### L 9000.0800 ####[facility] [address] [place], [address] HCO3 (Bld) [Moles/Vol] 31.6 mmol/L High 22-26 [facility] Comment on above: Performed By: #### L 9000.0800 ####[facility] [address] [place], [address] Mode Not entered Normal [facility] Comment on above: Performed By: #### L 9000.0800 ####[facility] [address] [place], [address] O2 Delivery Dev BiPAP Normal [facility] Comment on above: Performed By: #### L 9000.0800 ####[facility] [address] [place], [address] pCO2 63.0 mmHg High 35-45 [facility] Comment on above: Performed By: #### L 9000.0800 ####[facility] [address] [place], [address] pH (Bld) 7.31 [pH] Low 7.35-7.45 [facility] Comment on above: Performed By: #### L 9000.0800 ####[facility] [address] [place], [address] PO2 83 mmHG Normal 75-100 [facility] Comment on above: Performed By: #### L 9000.0800 ####[facility] [address] [place], [address] SITE R Radial Normal [facility] Comment on above: Performed By: #### L 9000.0800 ####[facility] [address] [place], [address] SO2 95 Normal 95-99 [facility] Comment on above: Performed By: #### L 9000.0800 ####[facility] [address] [place], [address] Blood base excess determinat ionOrdered By: Lucio Borden on 01-20-2025 Base excess Calc (BldV) [Moles/Vol] 10 mmol/L High -2-2 [facility] Blood bicarbonate measuremen tOrdered By: Lucio Borden on 01-20-2025 HCO3 (Bld) [Moles/Vol] 35.5 mmol/L High 22-26 [facility] Blood cultureOrdered By: Mikey Marie on 01-20-2025 Bacteria identified Cx Nom (Bld) No growth in 5 days. [facility] Blood cultureOrdered By: Maeve Yoder on 01-20-2025 Bacteria identified Cx Nom (Bld) No growth in 5 days. [facility] Bacteria identified Cx Nom (Bld) No growth in 5 days. [facility] CBC W/Diff, Automatedon 12-30 Absolute Lymph 4.62 X10 3/uL High 0.83-4.51 [facility] Comment on above: Performed By: #### L 100.0100, L300.3900, L501.4021, L503.6005, L500.4050, L300.4310, M200.1000 ####[facility] [address] [place], [address] Absolute Neut 8.4 X10 3/uL High 2.0-7.7 [facility] Comment on above: Performed By: #### L 100.0100, L300.3900, L501.4021, L503.6005, L500.4050, L300.4310, M200.1000 ####[facility] [address] [place], [address] Basophils/100 WBC (Bld) 0.6 % Normal 0-1 [facility] Comment on above: Performed By: #### L 100.0100, L300.3900, L501.4021, L503.6005, L500.4050, L300.4310, M200.1000 ####[facility] [address] [place], [address] Eosinophils/100 WBC (Bld) 0.8 % Normal 0-5 [facility] Comment on above: Performed By: #### L 100.0100, L300.3900, L501.4021, L503.6005, L500.4050, L300.4310, M200.1000 ####[facility] [address] [place], [address] Erythrocyte distribution width (RBC) [Ratio] 16.0 % High 11.6-14.6 [facility] Comment on above: Performed By: #### L 100.0100, L300.3900, L501.4021, L503.6005, L500.4050, L300.4310, M200.1000 ####[facility] [address] [place], [address] Hematocrit (Bld) [Volume fraction] 39.6 % Normal 37-47 [facility] Comment on above: Performed By: #### L 100.0100, L300.3900, L501.4021, L503.6005, L500.4050, L300.4310, M200.1000 ####[facility] [address] [place], [address] Hemoglobin (Bld) [Mass/Vol] 12.1 g/dL Normal 12.0-15.0 [facility] Comment on above: Performed By: #### L 100.0100, L300.3900, L501.4021, L503.6005, L500.4050, L300.4310, M200.1000 ####[facility] [address] [place], [address] IG% 0.500 Normal 0.0-0.9 [facility] Comment on above: Result Comment: IG% - Immature Granulocytes (promyelocytes, myelocytes andmetamyelocytes) > 1% indicates that a LEFT SHIFT is Present. Performed By: #### L 100.0100, L300.3900, L501.4021, L503.6005, L500.4050, L300.4310, M200.1000 ####[facility] [address] [place], [address] Lymphocytes/100 WBC (Bld) 32.0 % Normal 19-41 [facility] Comment on above: Performed By: #### L 100.0100, L300.3900, L501.4021, L503.6005, L500.4050, L300.4310, M200.1000 ####[facility] [address] [place], [address] MCH (RBC) [Entitic mass] 27.4 pg Normal 27.0-32.0 [facility] Comment on above: Performed By: #### L 100.0100, L300.3900, L501.4021, L503.6005, L500.4050, L300.4310, M200.1000 ####[facility] [address] [place], [address] MCHC (RBC) [Mass/Vol] 30.6 g/dL Low 32-36 [facility] Comment on above: Performed By: #### L 100.0100, L300.3900, L501.4021, L503.6005, L500.4050, L300.4310, M200.1000 ####[facility] [address] [place], [address] MCV (RBC) [Entitic vol] 89.8 fL Normal 81-99 [facility] Comment on above: Performed By: #### L 100.0100, L300.3900, L501.4021, L503.6005, L500.4050, L300.4310, M200.1000 ####[facility] [address] [place], [address] Monocytes/100 WBC (Bld) 7.7 % Normal 0-10 [facility] Comment on above: Performed By: #### L 100.0100, L300.3900, L501.4021, L503.6005, L500.4050, L300.4310, M200.1000 ####[facility] [address] [place], [address] Neutrophils/100 WBC (Bld) 58.4 % Normal 47-70 [facility] Comment on above: Performed By: #### L 100.0100, L300.3900, L501.4021, L503.6005, L500.4050, L300.4310, M200.1000 ####[facility] [address] [place], [address] Nucleated RBC (Bld) [#/Vol] 0 10*3/uL Normal 0-5 [facility] Comment on above: Performed By: #### L 100.0100, L300.3900, L501.4021, L503.6005, L500.4050, L300.4310, M200.1000 ####[facility] [address] [place], [address] Platelet mean volume (Bld) [Entitic vol] 12.0 fL Normal 6.2-12.0 [facility] Comment on above: Performed By: #### L 100.0100, L300.3900, L501.4021, L503.6005, L500.4050, L300.4310, M200.1000 ####[facility] [address] [place], [address] Platelets (Bld) [#/Vol] 287 10*3/uL Normal 150-450 [facility] Comment on above: Performed By: #### L 100.0100, L300.3900, L501.4021, L503.6005, L500.4050, L300.4310, M200.1000 ####[facility] [address] [place], [address] RBC (Bld) [#/Vol] 4.41 10*6/uL Normal 4.2-5.4 [facility] Comment on above: Performed By: #### L 100.0100, L300.3900, L501.4021, L503.6005, L500.4050, L300.4310, M200.1000 ####[facility] [address] [place], [address] RDW SD 52.7 fl High 35.1-43.9 [facility] Comment on above: Performed By: #### L 100.0100, L300.3900, L501.4021, L503.6005, L500.4050, L300.4310, M200.1000 ####[facility] [address] [place], [address] WBC (Bld) [#/Vol] 14.4 10*3/uL High 4.4-11.0 [facility] Comment on above: Performed By: #### L 100.0100, L300.3900, L501.4021, L503.6005, L500.4050, L300.4310, M200.1000 ####[facility] [address] [place], [address] CTA Chest W/WO Contraston CTA Chest W/WO Contrast Normal [facility] Calculated very low density lipoprotein (VLDL) cholesterol measurementOrdered By: Sandeep Marie on 01-20-2025 Calculated very low density lipoprotein (VLDL) cholesterol measurement 12 mg/dL 5-40 [facility] Comprehensive Metabolic Prof ilon 01-20-2025 Albumin [Mass/Vol] 3.6 g/dL Normal 3.4-4.8 [facility] Comment on above: Performed By: #### L 100.0100, L300.3900, L501.4021, L503.6005, L500.4050, L300.4310, M200.1000 ####[facility] [address] [place], [address] Albumin/Globulin [Mass ratio] 0.9 {ratio} Normal 0.9-2.4 [facility] Comment on above: Performed By: #### L 100.0100, L300.3900, L501.4021, L503.6005, L500.4050, L300.4310, M200.1000 ####[facility] [address] [place], [address] ALK PHOS 143 U/L High 35-104 [facility] Comment on above: Performed By: #### L 100.0100, L300.3900, L501.4021, L503.6005, L500.4050, L300.4310, M200.1000 ####[facility] [address] [place], [address] ALT [Catalytic activity/Vol] 36 U/L High <=34 [facility] Comment on above: Performed By: #### L 100.0100, L300.3900, L501.4021, L503.6005, L500.4050, L300.4310, M200.1000 ####[facility] [address] [place], [address] AST [Catalytic activity/Vol] 81 U/L High <=31 [facility] Comment on above: Result Comment: Hemo lysis present, Results??could be affected.?? Performed By: #### L 100.0100, L300.3900, L501.4021, L503.6005, L500.4050, L300.4310, M200.1000 ####[facility] [address] [place], [address] Bilirubin [Mass/Vol] 0.26 mg/dL Normal 0.00-1.30 [facility] Comment on above: Performed By: #### L 100.0100, L300.3900, L501.4021, L503.6005, L500.4050, L300.4310, M200.1000 ####[facility] [address] [place], [address] BUN/CRE 8.1 RATIO Low 10-20 [facility] Comment on above: Performed By: #### L 100.0100, L300.3900, L501.4021, L503.6005, L500.4050, L300.4310, M200.1000 ####[facility] [address] [place], [address] Calcium [Mass/Vol] 10.2 mg/dL Normal 7.6-11.0 [facility] Comment on above: Performed By: #### L 100.0100, L300.3900, L501.4021, L503.6005, L500.4050, L300.4310, M200.1000 ####[facility] [address] [place], [address] Chloride [Moles/Vol] 97 mmol/L Low 98-108 [facility] Comment on above: Performed By: #### L 100.0100, L300.3900, L501.4021, L503.6005, L500.4050, L300.4310, M200.1000 ####[facility] [address] [place], [address] CO2 [Moles/Vol] 25.7 mmol/L Normal 21.0-32.0 [facility] Comment on above: Performed By: #### L 100.0100, L300.3900, L501.4021, L503.6005, L500.4050, L300.4310, M200.1000 ####[facility] [address] [place], [address] Creatinine [Mass/Vol] 1.24 mg/dL High 0.70-1.20 [facility] Comment on above: Performed By: #### L 100.0100, L300.3900, L501.4021, L503.6005, L500.4050, L300.4310, M200.1000 ####[facility] [address] [place], [address] ECRCL 34.84 ml/min Low 50-250 [facility] Comment on above: Performed By: #### L 100.0100, L300.3900, L501.4021, L503.6005, L500.4050, L300.4310, M200.1000 ####[facility] [address] [place], [address] GAP 15 Normal 5-15 [facility] Comment on above: Performed By: #### L 100.0100, L300.3900, L501.4021, L503.6005, L500.4050, L300.4310, M200.1000 ####[facility] [address] [place], [address] GFR/1.73 sq M.predicted among non-blacks MDRD (S/P/Bld) [Vol rate/Area] 44 mL/min/{1.73_m2} Low >60 [facility] Comment on above: Result Comment: mL/m in/1.73m2 CKD-EPI Creatinine Equation (2020) Performed By: #### L 100.0100, L300.3900, L501.4021, L503.6005, L500.4050, L300.4310, M200.1000 ####[facility] [address] [place], [address] Globulin (S) [Mass/Vol] 4.1 g/dL Normal 2.2-4.2 [facility] Comment on above: Performed By: #### L 100.0100, L300.3900, L501.4021, L503.6005, L500.4050, L300.4310, M200.1000 ####[facility] [address] [place], [address] Glucose [Mass/Vol] 347 mg/dL High 70-99 [facility] Comment on above: Performed By: #### L 100.0100, L300.3900, L501.4021, L503.6005, L500.4050, L300.4310, M200.1000 ####[facility] [address] [place], [address] Potassium [Moles/Vol] 4.0 mmol/L Normal 3.3-5.1 [facility] Comment on above: Result Comment: Hemo lysis present, Results??could be affected.?? Performed By: #### L 100.0100, L300.3900, L501.4021, L503.6005, L500.4050, L300.4310, M200.1000 ####[facility] [address] [place], [address] Sodium [Moles/Vol] 137 mmol/L Normal 133-145 [facility] Comment on above: Performed By: #### L 100.0100, L300.3900, L501.4021, L503.6005, L500.4050, L300.4310, M200.1000 ####[facility] [address] [place], [address] T PROT 7.6 g/dL Normal 5.9-8.4 [facility] Comment on above: Performed By: #### L 100.0100, L300.3900, L501.4021, L503.6005, L500.4050, L300.4310, M200.1000 ####[facility] [address] [place], [address] Urea nitrogen [Mass/Vol] 10 mg/dL Normal 4-19 [facility] Comment on above: Performed By: #### L 100.0100, L300.3900, L501.4021, L503.6005, L500.4050, L300.4310, M200.1000 ####[facility] [address] [place], [address] Echo Completeon 01-20-2025 Echo Complete Normal [facility] Echocardiogram study reportO rdered By: Marcelina Soto on 01-20-2025 Study report [facility] Work Phone: Emergency Department Summary on 01-20-2025 Emergency Department Summary Normal [facility] H AND P Exam - Hospitaliston 01-20-2025 H&P Exam - Hospitalist Normal [facility] Hemoglobin A1con 01-20-2025 HbA1c (Bld) [Mass fraction] 10.6 % High <=5.6 [facility] Comment on above: Result Comment: Norm al < 5.7 % Prediabetic 5.7 - 6.4 % Diabetic >or= 6.5 % Please note range changes. Performed By: #### L 732.99 ####[facility] [address] [place], [address] Hemoglobin A1c percentageOrd ered By: Sandeep Marie on 01-20-2025 HbA1c (Bld) [Mass fraction] 10.6 % High <5.7 [facility] Ketones Test strip Ql (U)Ord ered By: Jeevan Yoder on 01-20-2025 Ketones Ql (U) Negative Negative [facility] L499.0042on 01-20-2025 Trop T High Sen 71 ng/L Invalid Interpretation Code <=14 [facility] Comment on above: Result Comment: Crit ical Result(s) Called at:0237 by: EMA BOWEN TO AMANDA.??Results read back by same. Performed By: #### L 499.0042 ####[facility] [address] [place], [address] L499.0043on 01-20-2025 Trop T High Sen 94 ng/L Invalid Interpretation Code <=14 [facility] Comment on above: Order Comment: PT SUAREZ S NOT MADE IT TO ROOM YET FROM ER OF 409 Result Comment: Crit ical Result(s) Called at 0548: by: SHARONA ALVAREZ. ??Results read back by same. Performed By: #### L 499.0043 ####[facility] [address] [place], [address] L501.4021on 01-20-2025 Trop T High Sen 52 ng/L High <=14 [facility] Comment on above: Performed By: #### L 100.0100, L300.3900, L501.4021, L503.6005, L500.4050, L300.4310, M200.1000 ####[facility] [address] [place], [address] L503.7505on 01-20-2025 Natriuretic peptide B (Bld) [Mass/Vol] 9449 pg/mL High <=1800 [facility] Comment on above: Result Comment: Hear t Failure Unlikely: < 300 pg/mLHeart Failure Likely< 50 Years: > 450 pg/mL50-75 Years: > 900 pg/mL>75 Years: > 1800 pg/mL Performed By: #### L 503.7505, L500.4100, L501.9520 ####[facility] [address] [place], [address] LDL calc ser/plasOrdered By: Sandeep Marie on 01-20-2025 Cholesterol in LDL [Mass/Vol] 79 mg/dL [facility] Lactic Acidon 01-20-2025 Lactate [Moles/Vol] 1.7 mmol/L Normal 0.0-2.0 [facility] Comment on above: Performed By: #### L 503.6005 ####[facility] [address] [facility] [address] Lactate [Moles/Vol] 2.0 mmol/L Normal 0.0-2.0 [facility] Comment on above: Order Comment: Comme nts: if result >2, system reflex orders 2nd test @ 4hrsY Result Comment: Crit ical Result(s) Called at 0615: by: SHARONA ALAVREZ. ??Results read back by same. Performed By: #### M 200.1000, L503.6005 ####[facility] [address] [place], [address] Lactate [Moles/Vol] 3.4 mmol/L Invalid Interpretation Code 0.0-2.0 [facility] Comment on above: Order Comment: Y Result Comment: Crit ical Result(s) Called at: 0116 by: EMA BOWEN TO [facility].??Results read back by same. Performed By: #### L 100.0100, L300.3900, L501.4021, L503.6005, L500.4050, L300.4310, M200.1000 ####[facility] [address] [place], [address] Legionella Antigen Urineon 0 01-20-2025 LEGU Normal [facility] Comment on above: Performed By: #### M 300.4600, M300.4500 ####[facility] [address] [place], [address] Lipid Profileon 01-20-2025 CHOL:HDL 2.89 Normal [facility] Comment on above: Performed By: #### L 503.7505, L500.4100, L501.9520 ####[facility] [address] [place], [address] Cholesterol [Mass/Vol] 140 mg/dL Normal <=200 [facility] Comment on above: Result Comment: Chol esterol level, Desirable <200 mg/dLBorderline high cholesterol 200-239 mg/dLHigh cholesterol >=240 mg/dLRecommendations of the NCEP Adult Treatment Panel for thefollowing risk-cutoff thresholds for the [place] Americanpulation. Performed By: #### L 503.7505, L500.4100, L501.9520 ####[facility] [address] [place], [address] Cholesterol in HDL [Mass/Vol] 49 mg/dL Normal [facility] Comment on above: Result Comment: Camelia onal Cholesterol Education Program (NCEP) guidelines:<40 mg/dL: Low HDL-cholesterol (major risk factor for CHD)>= 60 mg/dL: High HDL-cholesterol (negative risk factor forCHD)HDL-cholesterol is affected by a number of factors, e.g.smoking, exercise, hormones, sex and age. Performed By: #### L 503.7505, L500.4100, L501.9520 ####[facility] [address] [place], [address] Cholesterol in LDL [Mass/Vol] 79 mg/dL Normal [facility] Comment on above: Result Comment: Bord wtegrz=874-660 mg/dL Higher Ozzi=471 mg/dL or greater Performed By: #### L 503.7505, L500.4100, L501.9520 ####[facility] [address] [place], [address] Cholesterol in VLDL [Mass/Vol] 12 mg/dL Normal 5-40 [facility] Comment on above: Performed By: #### L 503.7505, L500.4100, L501.9520 ####[facility] [address] [place], [address] Triglyceride [Mass/Vol] 62 mg/dL Normal [facility] Comment on above: Result Comment: The drugs N-Acetylcysteine and Metamizole may falselydepress this assay.Normal range: <150 mg/dLBorderline High: 150-199 mg/dLHigh: 200-499 mg/dLVery High: >500 mg/dL Performed By: #### L 503.7505, L500.4100, L501.9520 ####[facility] [address] [place], [place], [address] Measurement, pHOrdered By: Connor Borden on 01-20-2025 pH (Unsp spec) 7.38 [pH] 7.35-7.45 [facility] Mucus LM Ql (Urine sed)Order ed By: Jeevan Yoder on 01-20-2025 Mucus Ql (Urine sed) 0 SEEN /hpf [facility] Nitrite Test strip Ql (U)Ord ered By: Jeevan Yoder on 01-20-2025 Nitrite Ql (U) Negative Negative [facility] No Panel InformationOrdered By: Lucio Borden on 01-20-2025 ART [facility] R Radial [facility] ST [facility] BiPAP [facility] 500.0 mL [facility] 14 [facility] 8 [facility] 16:55:40 [facility] Yes [facility] No Panel InformationOrdered By: Jeevan Yoder on 01-20-2025 See comment [facility] 81 U/L High <32 [facility] Partial Thromboplast Timeon 01-20-2025 aPTT Coag (Bld) [Time] 26.9 s Normal 24.1-36.2 [facility] Comment on above: Performed By: #### L 100.0100, L300.3900, L501.4021, L503.6005, L500.4050, L300.4310, M200.1000 ####[facility] [address] [place], [address] Protein Test strip Ql (U)Ord ered By: Jeevan Yoder on 01-20-2025 Protein Ql (U) 100 mg/dl High Negative [facility] Prothrombin Time w/INRon INR Coag (PPP) [Relative time] 1.1 {INR} Normal [facility] Comment on above: Performed By: #### L 100.0100, L300.3900, L501.4021, L503.6005, L500.4050, L300.4310, M200.1000 ####[facility] [address] [place], [address] PT Coag (PPP) [Time] 14.6 s Normal 11.7-14.9 [facility] Comment on above: Performed By: #### L 100.0100, L300.3900, L501.4021, L503.6005, L500.4050, L300.4310, M200.1000 ####[facility] [address] [place], [address] Prothrombin timeOrdered By: Jeevan Yoder on 01-20-2025 PT Coag (PPP) [Time] 14.6 s 11.7-14.9 [facility] RESPIRATORY PANEL MOLECULARo n 01-20-2025 RP PANEL Normal [facility] Comment on above: Performed By: #### M 100.638 ####[facility] [address] [place], [address] Respiratory pathogens detect ion panel by molecular detection methodOrdered By: Sandeep Marie on 01-20-2025 Respiratory pathogens DNA and RNA panel BEBETO+probe (Resp) [facility] Serum globulin measurementOr dered By: Jeevan Yoder on 01-20-2025 Globulin (S) [Mass/Vol] 4.1 g/dL 2.2-4.2 [facility] Serum or plasma alanine kelley otransferase (ALT) measurementOrdered By: Jeevan Yoder on 01-20-2025 ALT [Catalytic activity/Vol] 36 U/L High <35 [facility] Serum or plasma albumin melanie urement (mass/volume)Ordered By: Jeevan Yoder on 01-20-2025 Albumin [Mass/Vol] 3.6 g/dL 3.4-4.8 [facility] Serum or plasma albumin/glob ulin mass ratioOrdered By: Jeevan Yoder on 01-20-2025 Albumin/Globulin [Mass ratio] 0.9 {ratio} 0.9-2.4 [facility] Serum or plasma alkaline lissa sphatase measurementOrdered By: Jeevan Yoder on 01-20-2025 ALP [Catalytic activity/Vol] 143 U/L High 35-104 [facility] Serum or plasma cholesterol in HDL measurement (mass/volume)Ordered By: Sandeep Marie on 01-20-2025 Cholesterol in HDL [Mass/Vol] 49 mg/dL >40 [facility] Serum or plasma cholesterol measurement (mass/volume)Ordered By: Sandeep Marie on 01-20-2025 Cholesterol [Mass/Vol] 140 mg/dL <201 [facility] Squamous epithelial cells de tection in urine sediment by light microscopyOrdered By: Jeevan Yoder on 01-20-2025 Epithelial cells.squamous LM Ql (Urine sed) 5-10 SEEN /hpf 5-10 [facility] Strep pneumoniae Antig(UR,CS F)on 01-20-2025 STPAG Normal [facility] Comment on above: Performed By: #### M 300.4600, M300.4500 ####[facility] [address] [place], [place], [address] TSH DL <= 0.005 mIU/L QnOrde red By: Sandeep Marie on 01-20-2025 TSH Qn 0.492 uIU/mL 0.300-4.200 [facility] Thyroid Stim Hormone (TSH)on 01-20-2025 TSH 0.492 uIU/mL Normal 0.300-4.200 [facility] Comment on above: Performed By: #### L 503.7505, L500.4100, L501.9520 ####[facility] [address] [place], [place], [address] Total carbon dioxide measure mentOrdered By: Lucio Borden on 01-20-2025 CO2 [Moles/Vol] 37 mmol/L [facility] Total proteinOrdered By: Maeve Yoder on 01-20-2025 Protein [Mass/Vol] 7.6 g/dL 5.9-8.4 [facility] Troponin T.cardiac [Mass/vol ume] in Serum or Plasma by High sensitivity methodOrdered By: Jeevan Yoder on 01-20-2025 Troponin T.cardiac High sensitivity method [Mass/Vol] 94 ng/L High <14 [facility] Troponin T.cardiac High sensitivity method [Mass/Vol] 71 ng/L High <14 [facility] Troponin T.cardiac High sensitivity method [Mass/Vol] 52 ng/L High <14 [facility] Urinalysis, Completeon 01-20 EPI,SQUAMOUS 5-10 SEEN Normal 5-10 [facility] Comment on above: Order Comment: MARSHALL CTOR TO SPECIFY Performed By: #### L 400.0001 ####[facility] [address] [facility] [address] RBC 5-10 SEEN Normal 0-5 [facility] Comment on above: Order Comment: MARSHALL CTOR TO SPECIFY Performed By: #### L 400.0001 ####[facility] [address] [place], [address] WBC 0-5 SEEN Normal 0-5 [facility] Comment on above: Order Comment: MARSHALL CTOR TO SPECIFY Performed By: #### L 400.0001 ####[facility] [address] [place], [address] BACTERIA 0 SEEN Normal None Seen [facility] Comment on above: Order Comment: MARSHALL CTOR TO SPECIFY Performed By: #### L 400.0001 ####[facility] [address] [place], [address] Mucus Ql (Urine sed) [address] [facility] Comment on above: Order Comment: MARSHALL CTOR TO SPECIFY Performed By: #### L 400.0001 ####[facility] [address] [place], [address] Urine Legionella pneumophila antigen detectionOrdered By: Sandeep Marie on 01-20-2025 L. pneumophila Ag Ql (U) [facility] Urine clarityOrdered By: Maeve Yoder on 01-20-2025 Clarity (U) Clear Clear [facility] Urine color determinationOrd ered By: Jeevan Yoder on 01-20-2025 Color (U) Straw Yellow [facility] Urine cultureOrdered By: Maeve Yoder on 01-20-2025 Bacteria identified Cx Nom (U) Proteus mirabilis Abnormal [facility] Urine glucose detectionOrder ed By: Jeevan Yoder on 01-20-2025 Glucose Ql (U) 1000 mg/dl High Normal [facility] Urine leukocyte esterase det ection by dipstickOrdered By: Jeevan Yoder on 01-20-2025 Leukocyte esterase Test strip Ql (U) Negative Negative [facility] Urine pHOrdered By: Jeevan rai on 01-20-2025 pH (U) 6.0 [pH] 5.0 - 8.0 [facility] Urine sediment bacteria coun t by microscopy (number/high power field)Ordered By: Jeevan Yoder on 01-20-2025 Bacteria LM.HPF (Urine sed) [#/Area] 0 /[HPF] None Seen [facility] Urine specific gravity measu rementOrdered By: Jeevan Yoder on 01-20-2025 Specific gravity (U) [Rel density] 1.010 1.002-1.030 [facility] Urine urobilinogen measureme ntOrdered By: Jeevan Yoder on 01-20-2025 Urobilinogen Ql (U) Normal mg/dl Normal [facility] White blood cell countOrdere d By: Jeevan Yoder on 01-20-2025 White blood cell count 0-5 SEEN /hpf 0-5 [facility] Anion gap in Serum or Plasma Ordered By: Ramone Smiley on 01-19-2025 Anion gap [Moles/Vol] 14 mmol/L 5-15 [facility] BUN/creatinine ratioOrdered By: Ramone Smiley on 01-19-2025 Urea nitrogen/Creatinine [Mass ratio] 7.7 mg/mg Low 10-20 [facility] Bilirubin, totalOrdered By: Ramone Smiley on 01-19-2025 Bilirubin [Mass/Vol] 0.25 mg/dL 0.00-1.30 [facility] CBC-Complete Blood Cnt No Di ffon 01-19-2025 Erythrocyte distribution width (RBC) [Ratio] 16.0 % High 11.6-14.6 [facility] Comment on above: Order Comment: Order Date: 01/19/25Order Info: [id number] - CBC Performed By: #### L 500.4050, L501.5200, L100.0500 ####[facility] [id number] [place], [address] Hematocrit (Bld) [Volume fraction] 35.3 % Low 37-47 [facility] Comment on above: Order Comment: Order Date: 01/19/25Order Info: [id number] - CBC Performed By: #### L 500.4050, L501.5200, L100.0500 ####[facility] [address] [place], [address] Hemoglobin (Bld) [Mass/Vol] 10.9 g/dL Low 12.0-15.0 [facility] Comment on above: Order Comment: Order Date: 01/19/25Order Info: [id number] - CBC Performed By: #### L 500.4050, L501.5200, L100.0500 ####[facility] [address] [place], [address] MCH (RBC) [Entitic mass] 27.7 pg Normal 27.0-32.0 [facility] Comment on above: Order Comment: Order Date: 01/19/25Order Info: [id number] - CBC Performed By: #### L 500.4050, L501.5200, L100.0500 ####[facility] [address] [place], [address] MCHC (RBC) [Mass/Vol] 30.9 g/dL Low 32-36 [facility] Comment on above: Order Comment: Order Date: 01/19/25Order Info: [id number] - CBC Performed By: #### L 500.4050, L501.5200, L100.0500 ####[facility] [address] [place], [address] MCV (RBC) [Entitic vol] 89.6 fL Normal 81-99 [facility] Comment on above: Order Comment: Order Date: 01/19/25Order Info: [id number] - CBC Performed By: #### L 500.4050, L501.5200, L100.0500 ####[facility] [address] [place], [address] Platelet mean volume (Bld) [Entitic vol] 11.6 fL Normal 6.2-12.0 [facility] Comment on above: Order Comment: Order Date: 01/19/25Order Info: [id number] - CBC Performed By: #### L 500.4050, L501.5200, L100.0500 ####[facility] [address] [place], [address] Platelets (Bld) [#/Vol] 253 10*3/uL Normal 150-450 [facility] Comment on above: Order Comment: Order Date: 01/19/25Order Info: [id number] - CBC Performed By: #### L 500.4050, L501.5200, L100.0500 ####[facility] [address] [place], [address] RBC (Bld) [#/Vol] 3.94 10*6/uL Low 4.2-5.4 [facility] Comment on above: Order Comment: Order Date: 01/19/25Order Info: [id number] - CBC Performed By: #### L 500.4050, L501.5200, L100.0500 ####[facility] [address] [place], [address] RDW SD 52.7 fl High 35.1-43.9 [facility] Comment on above: Order Comment: Order Date: 01/19/25Order Info: [id number] - CBC Performed By: #### L 500.4050, L501.5200, L100.0500 ####[facility] [address] [place], [address] WBC (Bld) [#/Vol] 8.3 10*3/uL Normal 4.4-11.0 [facility] Comment on above: Order Comment: Order Date: 01/19/25Order Info: [id number] - CBC Performed By: #### L 500.4050, L501.5200, L100.0500 ####[facility] [address] [place], [address] Carbon dioxide, total [Moles /volume] in Central venous bloodOrdered By: Ramone Smiley on 01-19-2025 CO2 [Moles/Vol] 27.2 mmol/L 21.0-32.0 [facility] Chloride assayOrdered By: Richar Smiley on 01-19-2025 Chloride [Moles/Vol] 96 mmol/L Low 98-108 [facility] Comprehensive Metabolic Prof ilon 01-19-2025 Albumin [Mass/Vol] 3.4 g/dL Normal 3.4-4.8 [facility] Comment on above: Order Comment: Order Date: 01/19/25Order Info: [id number] - CMPOrder Info: [id number] - MG Performed By: #### L 500.4050, L501.5200, L100.0500 ####[facility] [address] [place], [address] Albumin/Globulin [Mass ratio] 0.9 {ratio} Normal 0.9-2.4 [facility] Comment on above: Order Comment: Order Date: 01/19/25Order Info: [id number] - CMPOrder Info: [id number] - MG Performed By: #### L 500.4050, L501.5200, L100.0500 ####[facility] [address] [place], [address] ALK PHOS 123 U/L High 35-104 [facility] Comment on above: Order Comment: Order Date: 01/19/25Order Info: [id number] - CMPOrder Info: [id number] - MG Performed By: #### L 500.4050, L501.5200, L100.0500 ####[facility] [address] [place], [address] ALT [Catalytic activity/Vol] 18 U/L Normal <=34 [facility] Comment on above: Order Comment: Order Date: 01/19/25Order Info: [id number] - CMPOrder Info: [id number] - MG Performed By: #### L 500.4050, L501.5200, L100.0500 ####[facility] [address] [place], [address] AST [Catalytic activity/Vol] 25 U/L Normal <=31 [facility] Comment on above: Order Comment: Order Date: 01/19/25Order Info: [id number] - CMPOrder Info: [id number] - MG Performed By: #### L 500.4050, L501.5200, L100.0500 ####[facility] [address] [place], [address] Bilirubin [Mass/Vol] 0.25 mg/dL Normal 0.00-1.30 [facility] Comment on above: Order Comment: Order Date: 01/19/25Order Info: [id number] - CMPOrder Info: [id number] - MG Performed By: #### L 500.4050, L501.5200, L100.0500 ####[facility] [address] [place], [address] BUN/CRE 7.7 RATIO Low 10-20 [facility] Comment on above: Order Comment: Order Date: 01/19/25Order Info: [id number] - CMPOrder Info: [id number] - MG Performed By: #### L 500.4050, L501.5200, L100.0500 ####[facility] [address] [place], [address] Calcium [Mass/Vol] 10.4 mg/dL Normal 7.6-11.0 [facility] Comment on above: Order Comment: Order Date: 01/19/25Order Info: [id number] - CMPOrder Info: [id number] - MG Performed By: #### L 500.4050, L501.5200, L100.0500 ####[facility] [address] [place], [address] Chloride [Moles/Vol] 96 mmol/L Low 98-108 [facility] Comment on above: Order Comment: Order Date: 01/19/25Order Info: [id number] - CMPOrder Info: [id number] - MG Performed By: #### L 500.4050, L501.5200, L100.0500 ####[facility] [address] [place], [address] CO2 [Moles/Vol] 27.2 mmol/L Normal 21.0-32.0 [facility] Comment on above: Order Comment: Order Date: 01/19/25Order Info: [id number] - CMPOrder Info: [id number] - MG Performed By: #### L 500.4050, L501.5200, L100.0500 ####[facility] [address] [place], [address] Creatinine [Mass/Vol] 1.06 mg/dL Normal 0.70-1.20 [facility] Comment on above: Order Comment: Order Date: 01/19/25Order Info: [id number] - CMPOrder Info: [id number] - MG Performed By: #### L 500.4050, L501.5200, L100.0500 ####[facility] [address] [place], [address] GAP 14 Normal 5-15 [facility] Comment on above: Order Comment: Order Date: 01/19/25Order Info: [id number] - CMPOrder Info: [id number] - MG Performed By: #### L 500.4050, L501.5200, L100.0500 ####[facility] [address] [place], [address] GFR/1.73 sq M.predicted among non-blacks MDRD (S/P/Bld) [Vol rate/Area] 53 mL/min/{1.73_m2} Low >60 [facility] Comment on above: Order Comment: Order Date: 01/19/25Order Info: [id number] - CMPOrder Info: [id number] - MG Result Comment: mL/m in/1.73m2 CKD-EPI Creatinine Equation (2020) Performed By: #### L 500.4050, L501.5200, L100.0500 ####[facility] [address] [place], [address] Globulin (S) [Mass/Vol] 3.9 g/dL Normal 2.2-4.2 [facility] Comment on above: Order Comment: Order Date: 01/19/25Order Info: [id number] - CMPOrder Info: [id number] - MG Performed By: #### L 500.4050, L501.5200, L100.0500 ####[facility] [address] [place], [address] Glucose [Mass/Vol] 288 mg/dL High 70-99 [facility] Comment on above: Order Comment: Order Date: 01/19/25Order Info: [id number] - CMPOrder Info: [id number] - MG Performed By: #### L 500.4050, L501.5200, L100.0500 ####[facility] [address] [place], [address] Potassium [Moles/Vol] 3.3 mmol/L Normal 3.3-5.1 [facility] Comment on above: Order Comment: Order Date: 01/19/25Order Info: [id number] - CMPOrder Info: [id number] - MG Performed By: #### L 500.4050, L501.5200, L100.0500 ####[facility] [address] [place], [place], [address] Sodium [Moles/Vol] 137 mmol/L Normal 133-145 [facility] Comment on above: Order Comment: Order Date: 01/19/25Order Info: [id number] - CMPOrder Info: [id number] - MG Performed By: #### L 500.4050, L501.5200, L100.0500 ####[facility] [address] [place], [place], [id number] T PROT 7.3 g/dL Normal 5.9-8.4 [facility] Comment on above: Order Comment: Order Date: 01/19/25Order Info: [id number] - CMPOrder Info: [id number] - MG Performed By: #### L 500.4050, L501.5200, L100.0500 ####[facility] [address] [place], [address] Urea nitrogen [Mass/Vol] 8 mg/dL Normal 4-19 [facility] Comment on above: Order Comment: Order Date: 01/19/25Order Info: [id number] - CMPOrder Info: [id number] - MG Performed By: #### L 500.4050, L501.5200, L100.0500 ####[facility] [address] [place], [address] Erythrocyte distribution wid th ratioOrdered By: Ramone Smiley on 01-19-2025 Erythrocyte distribution width (RBC) [Ratio] 16.0 % High 11.6-14.6 [facility] Erythrocyte distribution wid th standard deviationOrdered By: Ramone Smiley on 01-19-2025 Erythrocyte distribution width (RBC) [Ratio] 52.7 fl High 35.1-43.9 [facility] Glomerular filtration rate ( GFR) estimation/1.73 sq m using serum, plasma, or whole bOrdered By: Ramone Smiley on 01-19-2025 GFR/1.73 sq M.predicted among non-blacks MDRD (S/P/Bld) [Vol rate/Area] 53 mL/min/{1.73_m2} Low >60 [facility] Hematocrit Auto (Bld) [Volum e fraction]Ordered By: Ramone Smiley on 01-19-2025 Hematocrit (Bld) [Volume fraction] 35.3 % Low 37-47 [facility] Hemoglobin measurementOrdere d By: Ramone Smiley on 01-19-2025 Hemoglobin (Bld) [Mass/Vol] 10.9 g/dL Low 12.0-15.0 [facility] L503.7505on 01-19-2025 Natriuretic peptide B (Bld) [Mass/Vol] 3173 pg/mL High <=1800 [facility] Comment on above: Order Comment: Order Date: 01/19/25Order Info: [id number] - CMPOrder Info: [id number] - MG Result Comment: Hear t Failure Unlikely: < 300 pg/mLHeart Failure Likely< 50 Years: > 450 pg/mL50-75 Years: > 900 pg/mL>75 Years: > 1800 pg/mL Performed By: #### L 503.7505 ####[facility] [address] [place], [place], [address] MCV (mean corpuscular volume ) determinationOrdered By: Ramone Smiley on 01-19-2025 MCV (RBC) [Entitic vol] 89.6 fL 81-99 [facility] Magnesiumon 01-19-2025 Magnesium [Mass/Vol] 2.3 mg/dL High 1.5-2.2 [facility] Comment on above: Order Comment: Order Date: 01/19/25Order Info: [id number] - CMPOrder Info: [id number] - MG Performed By: #### L 500.4050, L501.5200, L100.0500 ####[facility] [address] [place], [place], [address] Magnesium measurement (mass/ volume)Ordered By: Ramone Smiley on 01-19-2025 Magnesium (Unsp spec) [Mass/Vol] 2.3 mg/dL High 1.5-2.2 [facility] Mean corpuscular hemoglobin (MCH) determinationOrdered By: Ramone Smiley on 01-19-2025 MCH (RBC) [Entitic mass] 27.7 pg 27.0-32.0 [facility] Natriuretic peptide.B prohor hayley N-Terminal [Mass/volume] in Serum or PlasmaOrdered By: Ramone Smiley on 01-19-2025 Natriuretic peptide.B prohormone N-Terminal [Mass/Vol] 3173 pg/mL High <1800 [facility] No Panel InformationOrdered By: Ramone Smiley on 01-19-2025 25 U/L <32 [facility] Platelet countOrdered By: Richar Smiley on 01-19-2025 Platelets (Bld) [#/Vol] 253 10*3/uL 150-450 [facility] Potassium measurement (mass/ volume)Ordered By: Ramone Smiley on 01-19-2025 Potassium (Unsp spec) [Mass/Vol] 3.3 mmol/L 3.3-5.1 [facility] RBC Auto (Bld) [#/Vol]Ordere d By: Ramone Smiley on 01-19-2025 RBC (Bld) [#/Vol] 3.94 10*6/uL Low 4.2-5.4 [facility] Serum creatinine measurement (mass/volume)Ordered By: Ramone Smiley on 01-19-2025 Creatinine [Mass/Vol] 1.06 mg/dL 0.70-1.20 [facility] Serum globulin measurementOr dered By: Ramone Smiley on 01-19-2025 Globulin (S) [Mass/Vol] 3.9 g/dL 2.2-4.2 [facility] Serum glucose measurement (m ass/volume)Ordered By: Ramone Smiley on 01-19-2025 Glucose [Mass/Vol] 288 mg/dL High 70-99 [facility] Serum or plasma alanine kelley otransferase (ALT) measurementOrdered By: Ramone Smiley on 01-19-2025 ALT [Catalytic activity/Vol] 18 U/L <35 [facility] Serum or plasma albumin melanie urement (mass/volume)Ordered By: Ramone Smiley on 01-19-2025 Albumin [Mass/Vol] 3.4 g/dL 3.4-4.8 [facility] Serum or plasma albumin/glob ulin mass ratioOrdered By: Ramone Smiley on 01-19-2025 Albumin/Globulin [Mass ratio] 0.9 {ratio} 0.9-2.4 [facility] Serum or plasma alkaline lissa sphatase measurementOrdered By: Ramone Smiley on 01-19-2025 ALP [Catalytic activity/Vol] 123 U/L High 35-104 [facility] Serum or plasma calcium melanie urement (mass/volume)Ordered By: Ramone Smiley on 01-19-2025 Calcium [Mass/Vol] 10.4 mg/dL 7.6-11.0 [facility] Serum or plasma urea nitroge n measurement (mass/volume)Ordered By: Ramone Smiley on 01-19-2025 Urea nitrogen [Mass/Vol] 8 mg/dL 4-19 [facility] Sodium levelOrdered By: Ramone Smiley on 01-19-2025 Sodium [Moles/Vol] 137 mmol/L 133-145 [facility] Total proteinOrdered By: Lilliam Smiley on 01-19-2025 Protein [Mass/Vol] 7.3 g/dL 5.9-8.4 [facility] White blood cell (WBC) count Ordered By: Rmaone Smiley on 01-19-2025 WBC (Bld) [#/Vol] 8.3 10*3/uL 4.4-11.0 [facility] 12 Lead EKGon 01-15-2025 12 Lead EKG Normal [facility] Absolute lymphocyte countOrd ered By: Jeevan Yoder on 01-15-2025 Lymphocytes Auto (Unsp spec) [#/Vol] 1.92 10*3/uL 0.83-4.51 [facility] Absolute neutrophil countOrd ered By: Jeevan Yoder on 01-15-2025 Neutrophils (Bld) [#/Vol] 7.7 10*3/uL 2.0-7.7 [facility] Anion gap in Serum or Plasma Ordered By: Jeevan Yoder on 01-15-2025 Anion gap [Moles/Vol] 11 mmol/L 5-15 [facility] Automated lymphocyte count a s percentage of total leukocytesOrdered By: Jeevan Yoder on 01-15-2025 Lymphocytes/100 WBC Auto (Unsp spec) 18.1 % Low 19-41 [facility] BUN/creatinine ratioOrdered By: Jeevan Yoder on 01-15-2025 Urea nitrogen/Creatinine [Mass ratio] 16.6 mg/mg - [facility] Basic Metabolic Profile (BMP )on 01-15-2025 BUN/CRE 16.6 RATIO Normal - [facility] Comment on above: Performed By: #### L 501.4021, L500.2500, L100.0100 ####[facility] [address] [place], [address] Calcium [Mass/Vol] 9.6 mg/dL Normal 7.6-11.0 [facility] Comment on above: Performed By: #### L 501.4021, L500.2500, L100.0100 ####[facility] [address] [place], [address] Chloride [Moles/Vol] 102 mmol/L Normal 98-108 [facility] Comment on above: Performed By: #### L 501.4021, L500.2500, L100.0100 ####[facility] [address] [place], [address] CO2 [Moles/Vol] 25.0 mmol/L Normal 21.0-32.0 [facility] Comment on above: Performed By: #### L 501.4021, L500.2500, L100.0100 ####[facility] [address] [place], [address] Creatinine [Mass/Vol] 0.92 mg/dL Normal 0.70-1.20 [facility] Comment on above: Performed By: #### L 501.4021, L500.2500, L100.0100 ####[facility] [address] [place], [address] ECRCL 48.84 ml/min Low 50-250 [facility] Comment on above: Performed By: #### L 501.4021, L500.2500, L100.0100 ####[facility] [address] [place], [address] GAP 11 Normal 5-15 [facility] Comment on above: Performed By: #### L 501.4021, L500.2500, L100.0100 ####[facility] [address] [place], [address] GFR/1.73 sq M.predicted among non-blacks MDRD (S/P/Bld) [Vol rate/Area] 63 mL/min/{1.73_m2} Normal >60 [facility] Comment on above: Result Comment: mL/m in/1.73m2 CKD-EPI Creatinine Equation (2020) Performed By: #### L 501.4021, L500.2500, L100.0100 ####[facility] [address] [place], [address] Glucose [Mass/Vol] 144 mg/dL High 70-99 [facility] Comment on above: Performed By: #### L 501.4021, L500.2500, L100.0100 ####[facility] [address] [place], [address] Potassium [Moles/Vol] 3.7 mmol/L Normal 3.3-5.1 [facility] Comment on above: Performed By: #### L 501.4021, L500.2500, L100.0100 ####[facility] [address] [place], [address] Sodium [Moles/Vol] 138 mmol/L Normal 133-145 [facility] Comment on above: Performed By: #### L 501.4021, L500.2500, L100.0100 ####[facility] [address] [place], [address] Urea nitrogen [Mass/Vol] 15 mg/dL Normal 4-19 [facility] Comment on above: Performed By: #### L 501.4021, L500.2500, L100.0100 ####[facility] [address] [place], [address] Basophil percentageOrdered B y: Jeevan Yoder on 01-15-2025 Basophils/100 WBC (Bld) 0.3 % 0-1 [facility] CBC W/Diff, Automatedon 12-29 Absolute Lymph 1.92 X10 3/uL Normal 0.83-4.51 [facility] Comment on above: Performed By: #### L 501.4021, L500.2500, L100.0100 ####[facility] [address] [place], [address] Absolute Neut 7.7 X10 3/uL Normal 2.0-7.7 [facility] Comment on above: Performed By: #### L 501.4021, L500.2500, L100.0100 ####[facility] [address] [place], [address] Basophils/100 WBC (Bld) 0.3 % Normal 0-1 [facility] Comment on above: Performed By: #### L 501.4021, L500.2500, L100.0100 ####[facility] [address] [place], [address] Eosinophils/100 WBC (Bld) 1.6 % Normal 0-5 [facility] Comment on above: Performed By: #### L 501.4021, L500.2500, L100.0100 ####[facility] [address] [place], [address] Erythrocyte distribution width (RBC) [Ratio] 16.3 % High 11.6-14.6 [facility] Comment on above: Performed By: #### L 501.4021, L500.2500, L100.0100 ####[facility] [address] [place], [address] Hematocrit (Bld) [Volume fraction] 34.3 % Low 37-47 [facility] Comment on above: Performed By: #### L 501.4021, L500.2500, L100.0100 ####[facility] [address] [place], [address] Hemoglobin (Bld) [Mass/Vol] 11.0 g/dL Low 12.0-15.0 [facility] Comment on above: Performed By: #### L 501.4021, L500.2500, L100.0100 ####[facility] [address] [place], [address] IG% 0.400 Normal 0.0-0.9 [facility] Comment on above: Result Comment: IG% - Immature Granulocytes (promyelocytes, myelocytes andmetamyelocytes) > 1% indicates that a LEFT SHIFT is Present. Performed By: #### L 501.4021, L500.2500, L100.0100 ####[facility] [address] [place], [address] Lymphocytes/100 WBC (Bld) 18.1 % Low 19-41 [facility] Comment on above: Performed By: #### L 501.4021, L500.2500, L100.0100 ####[facility] [address] [place], [address] MCH (RBC) [Entitic mass] 27.8 pg Normal 27.0-32.0 [facility] Comment on above: Performed By: #### L 501.4021, L500.2500, L100.0100 ####[facility] [address] [place], [address] MCHC (RBC) [Mass/Vol] 32.1 g/dL Normal 32-36 [facility] Comment on above: Performed By: #### L 501.4021, L500.2500, L100.0100 ####[facility] [address] [place], [address] MCV (RBC) [Entitic vol] 86.6 fL Normal 81-99 [facility] Comment on above: Performed By: #### L 501.4021, L500.2500, L100.0100 ####[facility] [address] [place], [address] Monocytes/100 WBC (Bld) 6.9 % Normal 0-10 [facility] Comment on above: Performed By: #### L 501.4021, L500.2500, L100.0100 ####[facility] [address] [place], [address] Neutrophils/100 WBC (Bld) 72.7 % High 47-70 [facility] Comment on above: Performed By: #### L 501.4021, L500.2500, L100.0100 ####[facility] [address] [place], [address] Nucleated RBC (Bld) [#/Vol] 0 10*3/uL Normal 0-5 [facility] Comment on above: Performed By: #### L 501.4021, L500.2500, L100.0100 ####[facility] [address] [place], [address] Platelet mean volume (Bld) [Entitic vol] 10.5 fL Normal 6.2-12.0 [facility] Comment on above: Performed By: #### L 501.4021, L500.2500, L100.0100 ####[facility] [address] [place], [address] Platelets (Bld) [#/Vol] 256 10*3/uL Normal 150-450 [facility] Comment on above: Performed By: #### L 501.4021, L500.2500, L100.0100 ####[facility] [address] [place], [address] RBC (Bld) [#/Vol] 3.96 10*6/uL Low 4.2-5.4 [facility] Comment on above: Performed By: #### L 501.4021, L500.2500, L100.0100 ####[facility] [address] [place], [address] RDW SD 50.8 fl High 35.1-43.9 [facility] Comment on above: Performed By: #### L 501.4021, L500.2500, L100.0100 ####[facility] [address] [place], [address] WBC (Bld) [#/Vol] 10.6 10*3/uL Normal 4.4-11.0 [facility] Comment on above: Performed By: #### L 501.4021, L500.2500, L100.0100 ####[facility] [address] [place], [address] Carbon dioxide, total [Moles /volume] in Central venous bloodOrdered By: Jeevan Yoder on 01-15-2025 CO2 [Moles/Vol] 25.0 mmol/L 21.0-32.0 [facility] Chest PA and Lateralon 01-15 Chest PA and Lateral Normal [facility] Chloride assayOrdered By: Kenny Yoder on 01-15-2025 Chloride [Moles/Vol] 102 mmol/L 98-108 [facility] Emergency Department Summary on 01-15-2025 Emergency Department Summary Normal [facility] Eosinophil percentageOrdered By: Jeevan Yoder on 01-15-2025 Eosinophils/100 WBC (Bld) 1.6 % 0-5 [facility] Erythrocyte distribution wid th ratioOrdered By: Jeevan Yoder on 01-15-2025 Erythrocyte distribution width (RBC) [Ratio] 16.3 % High 11.6-14.6 [facility] Erythrocyte distribution wid th standard deviationOrdered By: Jeevan Yoder on 01-15-2025 Erythrocyte distribution width (RBC) [Ratio] 50.8 fl High 35.1-43.9 [facility] Glomerular filtration rate ( GFR) estimation/1.73 sq m using serum, plasma, or whole bOrdered By: Jeevan Yoder on 01-15-2025 GFR/1.73 sq M.predicted among non-blacks MDRD (S/P/Bld) [Vol rate/Area] 63 mL/min/{1.73_m2} >60 [facility] Comment on above: mL/min/1.73m2 CKD-EP I Creatinine Equation (2020) Hematocrit Auto (Bld) [Volum e fraction]Ordered By: Jeevan Yoder on 01-15-2025 Hematocrit (Bld) [Volume fraction] 34.3 % Low 37-47 [facility] Hemoglobin measurementOrdere d By: Jeevan Yoder on 01-15-2025 Hemoglobin (Bld) [Mass/Vol] 11.0 g/dL Low 12.0-15.0 [facility] Immature granulocytes/100 WB C Auto (Bld)Ordered By: Jeevan Yoder on 01-15-2025 Immature granulocytes/100 WBC (Bld) 0.400 % 0.0-0.9 [facility] Comment on above: IG% - Immature Granu locytes (promyelocytes, myelocytes and metamyelocytes) > 1% indicates that a LEFT SHIFT is Present. L499.0042on 01-15-2025 Trop T High Sen 46 ng/L High <=14 [facility] Comment on above: Performed By: #### L 499.0042 ####[facility] [address] [place], [address] L499.0043on 01-15-2025 Trop T High Sen Normal <=14 [facility] Comment on above: Result Comment: DEP ED Performed By: #### L 499.0043 ####[facility] [address] [place], [address] L501.4021on 01-15-2025 Trop T High Sen 46 ng/L High <=14 [facility] Comment on above: Performed By: #### L 501.4021, L500.2500, L100.0100 ####[facility] [address] [place], [address] L503.7505on 01-15-2025 Natriuretic peptide B (Bld) [Mass/Vol] 4224 pg/mL High <=1800 [facility] Comment on above: Result Comment: Hear t Failure Unlikely: < 300 pg/mLHeart Failure Likely< 50 Years: > 450 pg/mL50-75 Years: > 900 pg/mL>75 Years: > 1800 pg/mL Performed By: #### L 503.7505 ####[facility] [address] [place], [address] MCV (mean corpuscular volume ) determinationOrdered By: Jeevan Yoder on 01-15-2025 MCV (RBC) [Entitic vol] 86.6 fL 81-99 [facility] Mean corpuscular hemoglobin (MCH) determinationOrdered By: Jeevan Yoder on 01-15-2025 MCH (RBC) [Entitic mass] 27.8 pg 27.0-32.0 [facility] Mean corpuscular hemoglobin concentration (MCHC) determinationOrdered By: Jeevan Yoder on 01-15-2025 MCHC (RBC) [Mass/Vol] 32.1 g/dL 32-36 [facility] Mean platelet volume determi nationOrdered By: Jeevan Yoder on 01-15-2025 Platelet mean volume (Bld) [Entitic vol] 10.5 fL 6.2-12.0 [facility] Monocyte percentageOrdered B y: Jeevan Yoder on 01-15-2025 Monocytes/100 WBC (Bld) 6.9 % 0-10 [facility] Natriuretic peptide.B prohor hayley N-Terminal [Mass/volume] in Serum or PlasmaOrdered By: Jeevan Yoder on 01-15-2025 Natriuretic peptide.B prohormone N-Terminal [Mass/Vol] 4224 pg/mL High <1800 [facility] Comment on above: Heart Failure Unlike ly: < 300 pg/mLHeart Failure Likely< 50 Years: > 450 pg/mL50-75 Years: > 900 pg/mL>75 Years: > 1800 pg/mL Neutrophil percentageOrdered By: Jeevan Yoder on 05-18-2025 Neutrophils/100 WBC (Bld) 72.7 % High 47-70 [facility] Nucleated red blood cell per centageOrdered By: Jeevan Yoder on 01-15-2025 Nucleated RBC/100 WBC (Bld) [Ratio] 0 % 0-5 [facility] Platelet countOrdered By: Kenny Yoder on 01-15-2025 Platelets (Bld) [#/Vol] 256 10*3/uL 150-450 [facility] Potassium measurement (mass/ volume)Ordered By: Jeevan Yoder on 01-15-2025 Potassium (Unsp spec) [Mass/Vol] 3.7 mmol/L 3.3-5.1 [facility] RBC Auto (Bld) [#/Vol]Ordere d By: Jeevan Yoder on 01-15-2025 RBC (Bld) [#/Vol] 3.96 10*6/uL Low 4.2-5.4 [facility] Serum creatinine measurement (mass/volume)Ordered By: Jeevan Yoder on 01-15-2025 Creatinine [Mass/Vol] 0.92 mg/dL 0.70-1.20 [facility] Serum glucose measurement (m ass/volume)Ordered By: Jeevan Yoder on 01-15-2025 Glucose [Mass/Vol] 144 mg/dL High 70-99 [facility] Serum or plasma calcium melanie urement (mass/volume)Ordered By: Jeevan Yoder on 01-15-2025 Calcium [Mass/Vol] 9.6 mg/dL 7.6-11.0 [facility] Serum or plasma urea nitroge n measurement (mass/volume)Ordered By: Jeevan Yoder on 01-15-2025 Urea nitrogen [Mass/Vol] 15 mg/dL 4-19 [facility] Sodium levelOrdered By: Marcelino Yoder on 01-15-2025 Sodium [Moles/Vol] 138 mmol/L 133-145 [facility] Troponin T.cardiac [Mass/vol ume] in Serum or Plasma by High sensitivity methodOrdered By: Jeevan Yoder on 01-15-2025 Troponin T.cardiac High sensitivity method [Mass/Vol] 46 ng/L High <14 [facility] Troponin T.cardiac High sensitivity method [Mass/Vol] 46 ng/L High <14 [facility] White blood cell (WBC) count Ordered By: Jeevan Yoder on 01-15-2025 WBC (Bld) [#/Vol] 10.6 10*3/uL 4.4-11.0 [facility] 12 Lead EKGon 01-07-2025 12 Lead EKG Normal [facility] Absolute lymphocyte countOrd ered By: Ethan Darnell on 01-07-2025 Lymphocytes Auto (Unsp spec) [#/Vol] 2.89 10*3/uL 0.83-4.51 [facility] Absolute neutrophil countOrd ered By: Ethan Darnell on 01-07-2025 Neutrophils (Bld) [#/Vol] 5.3 10*3/uL 2.0-7.7 [facility] Anion gap in Serum or Plasma Ordered By: Ethan Darnell on 01-07-2025 Anion gap [Moles/Vol] 11 mmol/L - [facility] Automated lymphocyte count a s percentage of total leukocytesOrdered By: Ethan Darnell on 01-07-2025 Lymphocytes/100 WBC Auto (Unsp spec) 31.8 % - [facility] BUN/creatinine ratioOrdered By: Ethan Darnell on 01-07-2025 Urea nitrogen/Creatinine [Mass ratio] 15.5 mg/mg - [facility] Basic Metabolic Profile (BMP )on 01-07-2025 BUN/CRE 15.5 RATIO Normal - [facility] Comment on above: Performed By: #### L 100.0100, L500.2500 ####[facility] [address] [place], [address] Calcium [Mass/Vol] 10.3 mg/dL Normal 7.6-11.0 [facility] Comment on above: Performed By: #### L 100.0100, L500.2500 ####[facility] [address] [place], [address] Chloride [Moles/Vol] 99 mmol/L Normal 98-108 [facility] Comment on above: Performed By: #### L 100.0100, L500.2500 ####[facility] [address] [place], [address] CO2 [Moles/Vol] 22.5 mmol/L Normal 21.0-32.0 [facility] Comment on above: Performed By: #### L 100.0100, L500.2500 ####[facility] [address] [place], [address] Creatinine [Mass/Vol] 0.90 mg/dL Normal 0.70-1.20 [facility] Comment on above: Performed By: #### L 100.0100, L500.2500 ####[facility] [address] [place], [address] ECRCL 49.31 ml/min Low 50-250 [facility] Comment on above: Performed By: #### L 100.0100, L500.2500 ####[facility] [address] [place], [address] GAP 11 Normal 5-15 [facility] Comment on above: Performed By: #### L 100.0100, L500.2500 ####[facility] [address] [place], [address] GFR/1.73 sq M.predicted among non-blacks MDRD (S/P/Bld) [Vol rate/Area] 64 mL/min/{1.73_m2} Normal >60 [facility] Comment on above: Result Comment: mL/m in/1.73m2 CKD-EPI Creatinine Equation (2020) Performed By: #### L 100.0100, L500.2500 ####[facility] [address] [place], [address] Glucose [Mass/Vol] 321 mg/dL High 70-99 [facility] Comment on above: Performed By: #### L 100.0100, L500.2500 ####[facility] [address] [place], [address] Potassium [Moles/Vol] 3.8 mmol/L Normal 3.3-5.1 [facility] Comment on above: Result Comment: Hemo lysis present, Results??could be affected.?? Performed By: #### L 100.0100, L500.2500 ####[facility] [address] [place], [address] Sodium [Moles/Vol] 133 mmol/L Normal 133-145 [facility] Comment on above: Performed By: #### L 100.0100, L500.2500 ####[facility] [address] [place], [address] Urea nitrogen [Mass/Vol] 14 mg/dL Normal 4-19 [facility] Comment on above: Performed By: #### L 100.0100, L500.2500 ####[facility] [address] [place], [address] Basophil percentageOrdered B y: Ethan Le on 01-07-2025 Basophils/100 WBC (Bld) 0.5 % 0-1 [facility] Bedside Glucoseon 01-07-2025 FINGERSTICK GLU 316 mg/dL High 74-106 [facility] Comment on above: Result Comment: KATARINA ANGELAENT OF PATIENT CARE PER NURSING PROTOCOL Performed By: #### L 501.080 ####[facility] [address] [place], [address] CBC W/Diff, Automatedon 12-29 0-2024 Absolute Lymph 2.89 X10 3/uL Normal 0.83-4.51 [facility] Comment on above: Performed By: #### L 100.0100, L500.2500 ####[facility] [address] [place], [address] Absolute Neut 5.3 X10 3/uL Normal 2.0-7.7 [facility] Comment on above: Performed By: #### L 100.0100, L500.2500 ####[facility] [address] [place], [address] Basophils/100 WBC (Bld) 0.5 % Normal 0-1 [facility] Comment on above: Performed By: #### L 100.0100, L500.2500 ####[facility] [address] [place], [address] Eosinophils/100 WBC (Bld) 1.9 % Normal 0-5 [facility] Comment on above: Performed By: #### L 100.0100, L500.2500 ####[facility] [address] [place], [address] Erythrocyte distribution width (RBC) [Ratio] 15.7 % High 11.6-14.6 [facility] Comment on above: Performed By: #### L 100.0100, L500.2500 ####[facility] [address] [place], [address] Hematocrit (Bld) [Volume fraction] 34.0 % Low 37-47 [facility] Comment on above: Performed By: #### L 100.0100, L500.2500 ####[facility] [address] [place], [address] Hemoglobin (Bld) [Mass/Vol] 10.5 g/dL Low 12.0-15.0 [facility] Comment on above: Performed By: #### L 100.0100, L500.2500 ####[facility] [address] [place], [address] IG% 0.200 Normal 0.0-0.9 [facility] Comment on above: Result Comment: IG% - Immature Granulocytes (promyelocytes, myelocytes andmetamyelocytes) > 1% indicates that a LEFT SHIFT is Present. Performed By: #### L 100.0100, L500.2500 ####[facility] [address] [place], [address] Lymphocytes/100 WBC (Bld) 31.8 % Normal 19-41 [facility] Comment on above: Performed By: #### L 100.0100, L500.2500 ####[facility] [address] [place], [address] MCH (RBC) [Entitic mass] 26.9 pg Low 27.0-32.0 [facility] Comment on above: Performed By: #### L 100.0100, L500.2500 ####[facility] [address] [place], [address] MCHC (RBC) [Mass/Vol] 30.9 g/dL Low 32-36 [facility] Comment on above: Performed By: #### L 100.0100, L500.2500 ####[facility] [address] [place], [address] MCV (RBC) [Entitic vol] 87.0 fL Normal 81-99 [facility] Comment on above: Performed By: #### L 100.0100, L500.2500 ####[facility] [address] [place], [address] Monocytes/100 WBC (Bld) 7.6 % Normal 0-10 [facility] Comment on above: Performed By: #### L 100.0100, L500.2500 ####[facility] [address] [place], [address] Neutrophils/100 WBC (Bld) 58.0 % Normal 47-70 [facility] Comment on above: Performed By: #### L 100.0100, L500.2500 ####[facility] [address] [place], [address] Nucleated RBC (Bld) [#/Vol] 0 10*3/uL Normal 0-5 [facility] Comment on above: Performed By: #### L 100.0100, L500.2500 ####[facility] [address] [place], [address] Platelet mean volume (Bld) [Entitic vol] 11.1 fL Normal 6.2-12.0 [facility] Comment on above: Performed By: #### L 100.0100, L500.2500 ####[facility] [address] [place], [address] Platelets (Bld) [#/Vol] 237 10*3/uL Normal 150-450 [facility] Comment on above: Performed By: #### L 100.0100, L500.2500 ####[facility] [address] [place], [address] RBC (Bld) [#/Vol] 3.91 10*6/uL Low 4.2-5.4 [facility] Comment on above: Performed By: #### L 100.0100, L500.2500 ####[facility] [address] [place], [address] RDW SD 49.4 fl High 35.1-43.9 [facility] Comment on above: Performed By: #### L 100.0100, L500.2500 ####[facility] [address] [place], [address] WBC (Bld) [#/Vol] 9.1 10*3/uL Normal 4.4-11.0 [facility] Comment on above: Performed By: #### L 100.0100, L500.2500 ####[facility] [address] [place], [address] Carbon dioxide, total [Moles /volume] in Central venous bloodOrdered By: Ethan Darnell on 01-07-2025 CO2 [Moles/Vol] 22.5 mmol/L 21.0-32.0 [facility] Chest PA and Lateralon 01-07 Chest PA and Lateral Normal [facility] Chloride assayOrdered By: Albaro Darnell on 01-07-2025 Chloride [Moles/Vol] 99 mmol/L 98-108 [facility] Emergency Department Summary on 01-07-2025 Emergency Department Summary Normal [facility] Eosinophil percentageOrdered By: Ethan Darnell on 01-07-2025 Eosinophils/100 WBC (Bld) 1.9 % 0-5 [facility] Erythrocyte distribution wid th ratioOrdered By: Ethan Darnell on 01-07-2025 Erythrocyte distribution width (RBC) [Ratio] 15.7 % High 11.6-14.6 [facility] Erythrocyte distribution wid th standard deviationOrdered By: Ethan Darnell on 01-07-2025 Erythrocyte distribution width (RBC) [Ratio] 49.4 fl High 35.1-43.9 [facility] Glomerular filtration rate ( GFR) estimation/1.73 sq m using serum, plasma, or whole bOrdered By: Ethan Darnell on 01-07-2025 GFR/1.73 sq M.predicted among non-blacks MDRD (S/P/Bld) [Vol rate/Area] 64 mL/min/{1.73_m2} >60 [facility] Comment on above: mL/min/1.73m2 CKD-EP I Creatinine Equation (2020) [facility]: Ethan Darnell on 01-07-2025 Glucose [Mass/Vol] 316 mg/dL High 74-106 [facility] Comment on above: MANAGEMENT OF PATIEN T CARE PER NURSING PROTOCOL Hematocrit Auto (Bld) [Volum e fraction]Ordered By: Ethan Darnell on 01-07-2025 Hematocrit (Bld) [Volume fraction] 34.0 % Low 37-47 [facility] Hemoglobin measurementOrdere d By: Ethan Darnell on 01-07-2025 Hemoglobin (Bld) [Mass/Vol] 10.5 g/dL Low 12.0-15.0 [facility] Immature granulocytes/100 WB C Auto (Bld)Ordered By: Ethna Darnell on 01-07-2025 Immature granulocytes/100 WBC (Bld) 0.200 % 0.0-0.9 [facility] Comment on above: IG% - Immature Granu locytes (promyelocytes, myelocytes and metamyelocytes) > 1% indicates that a LEFT SHIFT is Present. Influenza virus A and B and SARS-CoV-2 (COVID-19) and Respiratory syncytial virus RNAOrdered By: Ethan Darnell on 01-07-2025 SARS-CoV-2 (COVID-19) RNA BEBETO+probe Ql (Unsp spec) [facility] M100.678on 01-07-2025 M100.678 SARS-CoV-2 (COVID 19 ) Negative INFLUENZA A Negative INFLUENZA B Negative RSV PCR Negative Normal [facility] Comment on above: Performed By: #### M 100.678 ####[facility] [address] [place], [address] MCV (mean corpuscular volume ) determinationOrdered By: Ethan Darnell on 01-07-2025 MCV (RBC) [Entitic vol] 87.0 fL 81-99 [facility] Mean corpuscular hemoglobin (MCH) determinationOrdered By: Ethan Darnell on 01-07-2025 MCH (RBC) [Entitic mass] 26.9 pg Low 27.0-32.0 [facility] Mean corpuscular hemoglobin concentration (MCHC) determinationOrdered By: Ethan Darnell on 01-07-2025 MCHC (RBC) [Mass/Vol] 30.9 g/dL Low 32-36 [facility] Mean platelet volume determi nationOrdered By: Ethan Darnell on 01-07-2025 Platelet mean volume (Bld) [Entitic vol] 11.1 fL 6.2-12.0 [facility] Monocyte percentageOrdered B y: Ethan Darnell on 01-07-2025 Monocytes/100 WBC (Bld) 7.6 % 0-10 [facility] Neutrophil percentageOrdered By: Ethan Darnell on 01-07-2025 Neutrophils/100 WBC (Bld) 58.0 % 47-70 [facility] Nucleated red blood cell per centageOrdered By: Ethan Darnell on 01-07-2025 Nucleated RBC/100 WBC (Bld) [Ratio] 0 % 0-5 [facility] Platelet countOrdered By: Albaro Darnell on 01-07-2025 Platelets (Bld) [#/Vol] 237 10*3/uL 150-450 [facility] Potassium measurement (mass/ volume)Ordered By: Ethan Darnell on 01-07-2025 Potassium (Unsp spec) [Mass/Vol] 3.8 mmol/L 3.3-5.1 [facility] Comment on above: Hemolysis present, R esults could be affected. RBC Auto (Bld) [#/Vol]Ordere d By: Ethan Darnell on 01-07-2025 RBC (Bld) [#/Vol] 3.91 10*6/uL Low 4.2-5.4 [facility] Serum creatinine measurement (mass/volume)Ordered By: Ethan Darnell on 01-07-2025 Creatinine [Mass/Vol] 0.90 mg/dL 0.70-1.20 [facility] Serum glucose measurement (m ass/volume)Ordered By: Ethan Darnell on 01-07-2025 Glucose [Mass/Vol] 321 mg/dL High 70-99 [facility] Serum or plasma calcium melanie urement (mass/volume)Ordered By: Ethan Darnell on 01-07-2025 Calcium [Mass/Vol] 10.3 mg/dL 7.6-11.0 [facility] Serum or plasma urea nitroge n measurement (mass/volume)Ordered By: Ethan Darnell on 01-07-2025 Urea nitrogen [Mass/Vol] 14 mg/dL 4-19 [facility] Sodium levelOrdered By: Ethan Darnell on 01-07-2025 Sodium [Moles/Vol] 133 mmol/L 133-145 [facility] White blood cell (WBC) count Ordered By: Ethan Darnell on 01-07-2025 WBC (Bld) [#/Vol] 9.1 10*3/uL 4.4-11.0 [facility] Inital Evaluation (1) - PTon 10-13-2024 Inital Evaluation (1) - PT Normal [facility] Albumin to globulin ratioOrd ered By: Ramone Smiley on 09-27-2024 Albumin/Globulin [Mass ratio] 0.6 {ratio} Low 0.9-2.4 [facility] Bilirubin, totalOrdered By: Ramone Smiley on 09-27-2024 Bilirubin [Mass/Vol] 0.20 mg/dL 0.20-1.00 [facility] Comment on above: For patients on eltr ombopag therapy, use of Dimension [place] TBIL is not recommended. Blood urea nitrogen (BUN)/cr eatinine ratioOrdered By: Ramone Smiley on 09-27-2024 Urea nitrogen/Creatinine [Mass ratio] 12.7 mg/mg 10-20 [facility] CBC-Complete Blood Cnt No Di ffon 09-27-2024 Erythrocyte distribution width (RBC) [Ratio] 15.9 % High 11.6-14.6 [facility] Comment on above: Order Comment: Order Date: 09/27/24Order Info: [id number] - CBC Performed By: #### L 500.4050, L100.0500 ####[facility] [address] [place], [address] Hematocrit (Bld) [Volume fraction] 35.7 % Low 37-47 [facility] Comment on above: Order Comment: Order Date: 09/27/24Order Info: [id number] - CBC Performed By: #### L 500.4050, L100.0500 ####[facility] [address] [place], [address] Hemoglobin (Bld) [Mass/Vol] 11.0 g/dL Low 12.0-15.0 [facility] Comment on above: Order Comment: Order Date: 09/27/24Order Info: [id number] - CBC Performed By: #### L 500.4050, L100.0500 ####[facility] [address] [place], [address] MCH (RBC) [Entitic mass] 25.8 pg Low 27.0-32.0 [facility] Comment on above: Order Comment: Order Date: 09/27/24Order Info: [id number] - CBC Performed By: #### L 500.4050, L100.0500 ####[facility] [address] [place], [address] MCHC (RBC) [Mass/Vol] 30.8 g/dL Low 32-36 [facility] Comment on above: Order Comment: Order Date: 09/27/24Order Info: [id number] - CBC Performed By: #### L 500.4050, L100.0500 ####[facility] [address] [place], [address] MCV (RBC) [Entitic vol] 83.6 fL Normal 81-99 [facility] Comment on above: Order Comment: Order Date: 09/27/24Order Info: [id number] - CBC Performed By: #### L 500.4050, L100.0500 ####[facility] [address] [place], [address] Platelet mean volume (Bld) [Entitic vol] 11.3 fL Normal 6.2-12.0 [facility] Comment on above: Order Comment: Order Date: 09/27/24Order Info: [id number] - CBC Performed By: #### L 500.4050, L100.0500 ####[facility] [address] [place], [address] Platelets (Bld) [#/Vol] 287 10*3/uL Normal 150-450 [facility] Comment on above: Order Comment: Order Date: 09/27/24Order Info: [id number] - CBC Performed By: #### L 500.4050, L100.0500 ####[facility] [address] [place], [address] RBC (Bld) [#/Vol] 4.27 10*6/uL Normal 4.2-5.4 [facility] Comment on above: Order Comment: Order Date: 09/27/24Order Info: [id number] - CBC Performed By: #### L 500.4050, L100.0500 ####[facility] [address] [place], [address] RDW SD 47.4 fl High 35.1-43.9 [facility] Comment on above: Order Comment: Order Date: 09/27/24Order Info: [id number] - CBC Performed By: #### L 500.4050, L100.0500 ####[facility] [address] [place], [address] WBC (Bld) [#/Vol] 8.6 10*3/uL Normal 4.4-11.0 [facility] Comment on above: Order Comment: Order Date: 09/27/24Order Info: [id number] - CBC Performed By: #### L 500.4050, L100.0500 ####[facility] [address] [place], [address] Carbon dioxide measurementOr dered By: Ramone Smiley on 09-27-2024 CO2 [Moles/Vol] 28.0 mmol/L 21.0-32.0 [facility] Chloride measurementOrdered By: Ramone Smiley on 09-27-2024 Chloride [Moles/Vol] 101 mmol/L 98-107 [facility] Comprehensive Metabolic Prof ilon 09-27-2024 Albumin [Mass/Vol] 3.0 g/dL Low 3.2-5.0 [facility] Comment on above: Order Comment: Order Date: 09/27/24Order Info: [id number] - CMPOrder Info: [id number] - CRE Performed By: #### L 500.4050, L100.0500 ####[facility] [address] [place], [address] Albumin/Globulin [Mass ratio] 0.6 {ratio} Low 0.9-2.4 [facility] Comment on above: Order Comment: Order Date: 09/27/24Order Info: [id number] - CMPOrder Info: [id number] - CRE Performed By: #### L 500.4050, L100.0500 ####[facility] [address] [place], [address] ALK P 145 U/L High 45-117 [facility] Comment on above: Order Comment: Order Date: 09/27/24Order Info: [id number] - CMPOrder Info: [id number] - CRE Performed By: #### L 500.4050, L100.0500 ####[facility] [address] [place], [address] ALT [Catalytic activity/Vol] 16 U/L Normal 13-56 [facility] Comment on above: Order Comment: Order Date: 09/27/24Order Info: [id number] - CMPOrder Info: [id number] - CRE Performed By: #### L 500.4050, L100.0500 ####[facility] [address] [place], [address] AST [Catalytic activity/Vol] 16 U/L Normal 15-37 [facility] Comment on above: Order Comment: Order Date: 09/27/24Order Info: [id number] - CMPOrder Info: [id number] - CRE Performed By: #### L 500.4050, L100.0500 ####[facility] [address] [place], [address] Bilirubin [Mass/Vol] 0.20 mg/dL Normal 0.20-1.00 [facility] Comment on above: Order Comment: Order Date: 09/27/24Order Info: [id number] - CMPOrder Info: [id number] - CRE Result Comment: For patients on eltrombopag therapy, use of Dimension [place] TBIL is not recommended. Performed By: #### L 500.4050, L100.0500 ####[facility] [address] [place], [address] BUN/CRE 12.7 RATIO Normal 10-20 [facility] Comment on above: Order Comment: Order Date: 09/27/24Order Info: [id number] - CMPOrder Info: [id number] - CRE Performed By: #### L 500.4050, L100.0500 ####[facility] [address] [place], [address] CA,Total 11.0 mg/dL High 8.5-10.1 [facility] Comment on above: Order Comment: Order Date: 09/27/24Order Info: [id number] - CMPOrder Info: [id number] - CRE Performed By: #### L 500.4050, L100.0500 ####[facility] [address] [place], [address] Chloride [Moles/Vol] 101 mmol/L Normal 98-107 [facility] Comment on above: Order Comment: Order Date: 09/27/24Order Info: [id number] - CMPOrder Info: [id number]- - CRE Performed By: #### L 500.4050, L100.0500 ####[facility] [address] [place], [address] CO2 [Moles/Vol] 28.0 mmol/L Normal 21.0-32.0 [facility] Comment on above: Order Comment: Order Date: 09/27/24Order Info: 785- - CMPOrder Info: 014- - CRE Performed By: #### L 500.4050, L100.0500 ####[facility] [address] [place], [address] Creatinine [Mass/Vol] 0.86 mg/dL Normal 0.55-1.02 [facility] Comment on above: Order Comment: Order Date: 09/27/24Order Info: 07- - CMPOrder Info: [id number]- - CRE Result Comment: The validity of the calculated GFR GFRAA in patients over70 years has not been determined. Clinical correlation isessential. Performed By: #### L 500.4050, L100.0500 ####[facility] [address] [place], [address] EST GFR - AA 81 mL/min Normal >60 [facility] Comment on above: Order Comment: Order Date: 09/27/24Order Info: [id number] - CMPOrder Info: [id number] - CRE Result Comment: Afri can Romanian GFR Calc Performed By: #### L 500.4050, L100.0500 ####[facility] [address] [place], [address] GAP 8 Normal 5-15 [facility] Comment on above: Order Comment: Order Date: 09/27/24Order Info: [id number] - CMPOrder Info: [id number] - CRE Performed By: #### L 500.4050, L100.0500 ####[facility] [address] [place], [address] GFR/1.73 sq M.predicted among non-blacks MDRD (S/P/Bld) [Vol rate/Area] 67 mL/min/{1.73_m2} Normal >60 [facility] Comment on above: Order Comment: Order Date: 09/27/24Order Info: 0786- - CMPOrder Info: [id number] - CRE Result Comment: Non- GFR Calc Performed By: #### L 500.4050, L100.0500 ####[facility] [address] [place], [address] Globulin (S) [Mass/Vol] 5.0 g/dL High 2.2-4.2 [facility] Comment on above: Order Comment: Order Date: 09/27/24Order Info: [id number] - CMPOrder Info: [id number] - CRE Performed By: #### L 500.4050, L100.0500 ####[facility] [address] [place], [address] Glucose [Mass/Vol] 144 mg/dL High 74-106 [facility] Comment on above: Order Comment: Order Date: 09/27/24Order Info: [id number] - CMPOrder Info: [id number] - CRE Result Comment: Fast ing Glucose result greater than or equal to 126 mg/dLsuggests DIABETES MELLITUS per A.D.A. criteria. Performed By: #### L 500.4050, L100.0500 ####[facility] [address] [place], [address] Potassium [Moles/Vol] 3.5 mmol/L Normal 3.5-5.1 [facility] Comment on above: Order Comment: Order Date: 09/27/24Order Info: [id number] - CMPOrder Info: [id number] - CRE Performed By: #### L 500.4050, L100.0500 ####[facility] [address] [place], [address] Sodium [Moles/Vol] 138 mmol/L Normal 136-145 [facility] Comment on above: Order Comment: Order Date: 09/27/24Order Info: [id number] - CMPOrder Info: [id number]- - CRE Performed By: #### L 500.4050, L100.0500 ####[facility] [address] [place], [address] T PROT 8.0 g/dL Normal 6.4-8.2 [facility] Comment on above: Order Comment: Order Date: 09/27/24Order Info: [id number] - CMPOrder Info: [id number]- - CRE Performed By: #### L 500.4050, L100.0500 ####[facility] [address] [place], [address] Urea nitrogen [Mass/Vol] 11 mg/dL Normal 7-18 [facility] Comment on above: Order Comment: Order Date: 09/27/24Order Info: 0786-1 - CMPOrder Info: [id number] - CRE Performed By: #### L 500.4050, L100.0500 ####[facility] [address] [place], [address] Erythrocyte distribution wid th ratioOrdered By: Ramone Smiley on 09-27-2024 Erythrocyte distribution width (RBC) [Ratio] 15.9 % High 11.6-14.6 [facility] Erythrocyte distribution wid th standard deviationOrdered By: Ramone Smiley on 09-27-2024 Erythrocyte distribution width (RBC) [Ratio] 47.4 fl High 35.1-43.9 [facility] Glomerular filtration rate ( GFR) estimationOrdered By: Ramone Smiley on 09-27-2024 GFR/1.73 sq M.predicted among non-blacks MDRD (S/P/Bld) [Vol rate/Area] 67 mL/min/{1.73_m2} >60 [facility] Comment on above: Non- GFR Calc Glucose measurementOrdered B y: Ramone Smiley on 09-27-2024 Glucose [Mass/Vol] 144 mg/dL High 74-106 [facility] Comment on above: Fasting Glucose resu lt greater than or equal to 126 mg/dL suggests DIABETES MELLITUS per A.D.A. criteria. Hematocrit Auto (Bld) [Volum e fraction]Ordered By: Ramone Smiley on 09-27-2024 Hematocrit (Bld) [Volume fraction] 35.7 % Low 37-47 [facility] Hemoglobin measurementOrdere d By: Ramone Smiley on 09-27-2024 Hemoglobin (Bld) [Mass/Vol] 11.0 g/dL Low 12.0-15.0 [facility] Laboratory - Chemistry and C hemistry - challengeOrdered By: Ramone Smiley on 09-27-2024 AST [Catalytic activity/Vol] 16 U/L [facility] MCV (mean corpuscular volume ) determinationOrdered By: Ramone Smiley on 09-27-2024 MCV (RBC) [Entitic vol] 83.6 fL 81-99 [facility] Mean corpuscular hemoglobin (MCH) determinationOrdered By: Ramone Smiley on 09-27-2024 MCH (RBC) [Entitic mass] 25.8 pg Low 27.0-32.0 [facility] Mean corpuscular hemoglobin concentration (MCHC) determinationOrdered By: Ramone Smiley on 09-27-2024 MCHC (RBC) [Mass/Vol] 30.8 g/dL Low 32-36 [facility] Mean platelet volume determi nationOrdered By: Ramone Smiley on 09-27-2024 Platelet mean volume (Bld) [Entitic vol] 11.3 fL 6.2-12.0 [facility] No Panel InformationOrdered By: Ramone Smiley on 09-27-2024 16 U/L [facility] Platelet countOrdered By: Richar Smiley on 09-27-2024 Platelets (Bld) [#/Vol] 287 10*3/uL 150-450 [facility] Potassium measurementOrdered By: Ramone Smiley on 09-27-2024 Potassium [Moles/Vol] 3.5 mmol/L 3.5-5.1 [facility] RBC Auto (Bld) [#/Vol]Ordere d By: Ramone Smiley on 09-27-2024 RBC (Bld) [#/Vol] 4.27 10*6/uL 4.2-5.4 [facility] Serum anion gap measurementO rdered By: Ramone Smiley on 09-27-2024 Anion gap [Moles/Vol] 8 mmol/L 5-15 [facility] Serum globulin measurementOr dered By: Ramone Smiley on 09-27-2024 Globulin (S) [Mass/Vol] 5.0 g/dL High 2.2-4.2 [facility] Serum or plasma alanine kelley otransferase (ALT) measurementOrdered By: Ramone Smiley on 09-27-2024 ALT [Catalytic activity/Vol] 16 U/L 13-56 [facility] Serum or plasma albumin melanie urement (mass/volume)Ordered By: Ramone Smiley on 09-27-2024 Albumin [Mass/Vol] 3.0 g/dL Low 3.2-5.0 [facility] Serum or plasma alkaline lissa sphatase measurementOrdered By: Ramone Smiley on 09-27-2024 ALP [Catalytic activity/Vol] 145 U/L High 45-117 [facility] Serum or plasma calcium melanie urement (mass/volume)Ordered By: Ramone Smiley on 09-27-2024 Calcium [Mass/Vol] 11.0 mg/dL High 8.5-10.1 [facility] Serum or plasma creatinine m easurement (mass/volume)Ordered By: Ramone Smiley on 09-27-2024 Creatinine [Mass/Vol] 0.86 mg/dL 0.55-1.02 [facility] Comment on above: The validity of the calculated GFR & GFRAA in patients over 70 years has not been determined. Clinical correlation is essential. Serum or plasma urea nitroge n measurement (mass/volume)Ordered By: Ramone Smiley on 09-27-2024 Urea nitrogen [Mass/Vol] 11 mg/dL 7-18 [facility] Sodium levelOrdered By: Ramone Smiley on 09-27-2024 Sodium [Moles/Vol] 138 mmol/L 136-145 [facility] Total proteinOrdered By: Lilliam Smiley on 09-27-2024 Protein [Mass/Vol] 8.0 g/dL 6.4-8.2 [facility] White blood cell (WBC) count Ordered By: Ramone Smiley on 09-27-2024 WBC (Bld) [#/Vol] 8.6 10*3/uL 4.4-11.0 [facility] Kidney and Bladderon 024 Kidney and Bladder Normal [facility] BNP,B-Type NATRIURETIC PEPTI Ishaan 06-19-2024 Natriuretic peptide B (Bld) [Mass/Vol] 81.6 pg/mL Normal 0-100 [facility] Comment on above: Performed By: #### L 100.0100, L500.2500, L503.6620 ####[facility] [address] [place], [address] Basic Metabolic Profile (BMP )on 06-19-2024 BUN/CRE 9.3 RATIO Low 06-19 [facility] Comment on above: Performed By: #### L 100.0100, L500.2500, L503.6620 ####[facility] [address] [place], [address] CA,Total 11.0 mg/dL High 8.5-10.1 [facility] Comment on above: Performed By: #### L 100.0100, L500.2500, L503.6620 ####[facility] [address] [place], [address] Chloride [Moles/Vol] 104 mmol/L Normal 98-107 [facility] Comment on above: Performed By: #### L 100.0100, L500.2500, L503.6620 ####[facility] [address] [place], [address] CO2 [Moles/Vol] 26.0 mmol/L Normal 21.0-32.0 [facility] Comment on above: Performed By: #### L 100.0100, L500.2500, L503.6620 ####[facility] [address] [place], [address] Creatinine [Mass/Vol] 1.08 mg/dL High 0.55-1.02 [facility] Comment on above: Result Comment: The validity of the calculated GFR GFRAA in patients over70 years has not been determined. Clinical correlation isessential. Performed By: #### L 100.0100, L500.2500, L503.6620 ####[facility] [address] [place], [address] EST GFR - AA 63 mL/min Normal >60 [facility] Comment on above: Result Comment: Afri can Romanian GFR Calc Performed By: #### L 100.0100, L500.2500, L503.6620 ####[facility] [address] [place], [address] GAP 6 Normal 5-15 [facility] Comment on above: Performed By: #### L 100.0100, L500.2500, L503.6620 ####[facility] [address] [place], [address] GFR/1.73 sq M.predicted among non-blacks MDRD (S/P/Bld) [Vol rate/Area] 52 mL/min/{1.73_m2} Low >60 [facility] Comment on above: Result Comment: Non- GFR Calc Performed By: #### L 100.0100, L500.2500, L503.6620 ####[facility] [address] [place], [address] Glucose [Mass/Vol] 263 mg/dL High 74-106 [facility] Comment on above: Result Comment: Gluc ose result greater than or equal to 200 mg/dLsuggests DIABETES MELLITUS per A.D.A. criteria. Performed By: #### L 100.0100, L500.2500, L503.6620 ####[facility] [address] [place], [address] Potassium [Moles/Vol] 4.4 mmol/L Normal 3.5-5.1 [facility] Comment on above: Performed By: #### L 100.0100, L500.2500, L503.6620 ####[facility] [address] [place], [address] Sodium [Moles/Vol] 137 mmol/L Normal 136-145 [facility] Comment on above: Performed By: #### L 100.0100, L500.2500, L503.6620 ####[facility] [address] [place], [address] Urea nitrogen [Mass/Vol] 10 mg/dL Normal 7-18 [facility] Comment on above: Performed By: #### L 100.0100, L500.2500, L503.6620 ####[facility] [address] [place], [address] CBC W/Diff, Automatedon 10-2 0-2024 Absolute Lymph 2.32 X10 3/uL Normal 0.83-4.51 [facility] Comment on above: Performed By: #### L 100.0100, L500.2500, L503.6620 ####[facility] [address] [place], [address] Absolute Neut 4.7 X10 3/uL Normal 2.0-7.7 [facility] Comment on above: Performed By: #### L 100.0100, L500.2500, L503.6620 ####[facility] [address] [place], [address] Basophils/100 WBC (Bld) 0.5 % Normal 0-1 [facility] Comment on above: Performed By: #### L 100.0100, L500.2500, L503.6620 ####[facility] [address] [place], [address] Eosinophils/100 WBC (Bld) 8.7 % High 0-5 [facility] Comment on above: Performed By: #### L 100.0100, L500.2500, L503.6620 ####[facility] [address] [place], [address] Erythrocyte distribution width (RBC) [Ratio] 16.6 % High 11.6-14.6 [facility] Comment on above: Performed By: #### L 100.0100, L500.2500, L503.6620 ####[facility] [address] [place], [address] Hematocrit (Bld) [Volume fraction] 36.6 % Low 37-47 [facility] Comment on above: Performed By: #### L 100.0100, L500.2500, L503.6620 ####[facility] [address] [place], [address] Hemoglobin (Bld) [Mass/Vol] 11.2 g/dL Low 12.0-15.0 [facility] Comment on above: Performed By: #### L 100.0100, L500.2500, L503.6620 ####[facility] [address] [place], [address] IG% 0.200 Normal 0.0-0.9 [facility] Comment on above: Result Comment: IG% - Immature Granulocytes (promyelocytes, myelocytes andmetamyelocytes) > 1% indicates that a LEFT SHIFT is Present. Performed By: #### L 100.0100, L500.2500, L503.6620 ####[facility] [address] [place], [address] Lymphocytes/100 WBC (Bld) 27.7 % Normal 19-41 [facility] Comment on above: Performed By: #### L 100.0100, L500.2500, L503.6620 ####[facility] [address] [place], [address] MCH (RBC) [Entitic mass] 25.6 pg Low 27.0-32.0 [facility] Comment on above: Performed By: #### L 100.0100, L500.2500, L503.6620 ####[facility] [address] [place], [address] MCHC (RBC) [Mass/Vol] 30.6 g/dL Low 32-36 [facility] Comment on above: Performed By: #### L 100.0100, L500.2500, L503.6620 ####[facility] [address] [place], [address] MCV (RBC) [Entitic vol] 83.8 fL Normal 81-99 [facility] Comment on above: Performed By: #### L 100.0100, L500.2500, L503.6620 ####[facility] [address] [place], [address] Monocytes/100 WBC (Bld) 6.7 % Normal 0-10 [facility] Comment on above: Performed By: #### L 100.0100, L500.2500, L503.6620 ####[facility] [address] [place], [address] Neutrophils/100 WBC (Bld) 56.2 % Normal 47-70 [facility] Comment on above: Performed By: #### L 100.0100, L500.2500, L503.6620 ####[facility] [address] [place], [address] Nucleated RBC (Bld) [#/Vol] 0 10*3/uL Normal 0-5 [facility] Comment on above: Performed By: #### L 100.0100, L500.2500, L503.6620 ####[facility] [address] [place], [address] Platelet mean volume (Bld) [Entitic vol] 10.4 fL Normal 6.2-12.0 [facility] Comment on above: Performed By: #### L 100.0100, L500.2500, L503.6620 ####[facility] [address] [place], [address] Platelets (Bld) [#/Vol] 234 10*3/uL Normal 150-450 [facility] Comment on above: Performed By: #### L 100.0100, L500.2500, L503.6620 ####[facility] [address] [place], [address] RBC (Bld) [#/Vol] 4.37 10*6/uL Normal 4.2-5.4 [facility] Comment on above: Performed By: #### L 100.0100, L500.2500, L503.6620 ####[facility] [address] [place], [address] RDW SD 50.9 fl High 35.1-43.9 [facility] Comment on above: Performed By: #### L 100.0100, L500.2500, L503.6620 ####[facility] [address] [place], [address] WBC (Bld) [#/Vol] 8.4 10*3/uL Normal 4.4-11.0 [facility] Comment on above: Performed By: #### L 100.0100, L500.2500, L503.6620 ####[facility] [address] [place], [address] Chest 1 View (Portable)on Chest 1 View (Portable) Normal [facility] Emergency Department Summary on 06-19-2024 Emergency Department Summary Normal [facility] 12 Lead EKGon 05-30-2024 12 Lead EKG Normal [facility] BNP,B-Type NATRIURETIC PEPTI Ishaan 05-30-2024 Natriuretic peptide B (Bld) [Mass/Vol] 108.0 pg/mL High 0-100 [facility] Comment on above: Performed By: #### L 100.0100, L500.2500, L501.4020, L503.6620 ####[facility] [address] [place], [address] Basic Metabolic Profile (BMP )on 05-30-2024 BUN/CRE 12.8 RATIO Normal 06-19 [facility] Comment on above: Order Comment: 'TROP ' Serial specimen #1, #2 or #3: 1 Performed By: #### L 100.0100, L500.2500, L501.4020, L503.6620 ####[facility] [address] [place], [address] CA,Total 11.4 mg/dL High 8.5-10.1 [facility] Comment on above: Order Comment: 'TROP ' Serial specimen #1, #2 or #3: 1 Performed By: #### L 100.0100, L500.2500, L501.4020, L503.6620 ####[facility] [address] [place], [address] Chloride [Moles/Vol] 104 mmol/L Normal 98-107 [facility] Comment on above: Order Comment: 'TROP ' Serial specimen #1, #2 or #3: 1 Performed By: #### L 100.0100, L500.2500, L501.4020, L503.6620 ####[facility] [address] [place], [address] CO2 [Moles/Vol] 28.0 mmol/L Normal 21.0-32.0 [facility] Comment on above: Order Comment: 'TROP ' Serial specimen #1, #2 or #3: 1 Performed By: #### L 100.0100, L500.2500, L501.4020, L503.6620 ####[facility] [address] [place], [address] Creatinine [Mass/Vol] 0.93 mg/dL Normal 0.55-1.02 [facility] Comment on above: Order Comment: 'TROP ' Serial specimen #1, #2 or #3: 1 Result Comment: The validity of the calculated GFR GFRAA in patients over70 years has not been determined. Clinical correlation isessential. Performed By: #### L 100.0100, L500.2500, L501.4020, L503.6620 ####[facility] [address] [place], [address] ECRCL 45.88 ml/min Normal [facility] Comment on above: Order Comment: 'TROP ' Serial specimen #1, #2 or #3: 1 Performed By: #### L 100.0100, L500.2500, L501.4020, L503.6620 ####[facility] [address] [place], [address] EST GFR - AA 74 mL/min Normal >60 [facility] Comment on above: Order Comment: 'TROP ' Serial specimen #1, #2 or #3: 1 Result Comment: Afri can Romanian GFR Calc Performed By: #### L 100.0100, L500.2500, L501.4020, L503.6620 ####[facility] [address] [place], [address] GAP 7 Normal 5-15 [facility] Comment on above: Order Comment: 'TROP ' Serial specimen #1, #2 or #3: 1 Performed By: #### L 100.0100, L500.2500, L501.4020, L503.6620 ####[facility] [address] [place], [address] GFR/1.73 sq M.predicted among non-blacks MDRD (S/P/Bld) [Vol rate/Area] 61 mL/min/{1.73_m2} Normal >60 [facility] Comment on above: Order Comment: 'TROP ' Serial specimen #1, #2 or #3: 1 Result Comment: Non- GFR Calc Performed By: #### L 100.0100, L500.2500, L501.4020, L503.6620 ####[facility] [address] [place], [address] Glucose [Mass/Vol] 167 mg/dL High 74-106 [facility] Comment on above: Order Comment: 'TROP ' Serial specimen #1, #2 or #3: 1 Result Comment: Fast ing Glucose result greater than or equal to 126 mg/dLsuggests DIABETES MELLITUS per A.D.A. criteria. Performed By: #### L 100.0100, L500.2500, L501.4020, L503.6620 ####[facility] [address] [place], [address] Potassium [Moles/Vol] 4.0 mmol/L Normal 3.5-5.1 [facility] Comment on above: Order Comment: 'TROP ' Serial specimen #1, #2 or #3: 1 Performed By: #### L 100.0100, L500.2500, L501.4020, L503.6620 ####[facility] [address] [place], [address] Sodium [Moles/Vol] 138 mmol/L Normal 136-145 [facility] Comment on above: Order Comment: 'TROP ' Serial specimen #1, #2 or #3: 1 Performed By: #### L 100.0100, L500.2500, L501.4020, L503.6620 ####[facility] [address] [place], [address] Urea nitrogen [Mass/Vol] 12 mg/dL Normal 7-18 [facility] Comment on above: Order Comment: 'TROP ' Serial specimen #1, #2 or #3: 1 Performed By: #### L 100.0100, L500.2500, L501.4020, L503.6620 ####[facility] [address] [place], [address] CBC W/Diff, Automatedon 05-03 PLT EST ADEQUATE Normal ADEQ [facility] Comment on above: Performed By: #### L 100.0100, L500.2500, L501.4020, L503.6620 ####[facility] [address] [place], [address] Chest PA and Lateralon 05-30 Chest PA and Lateral Normal [facility] Emergency Department Summary on 05-30-2024 Emergency Department Summary Normal [facility] L501.4020on 05-30-2024 TROPONIN-I HS 12 pg/mL Normal 3.0-54.0 [facility] Comment on above: Order Comment: 'TROP ' Serial specimen #1, #2 or #3: 1 Result Comment: Plea se Note: New Test Units and Gender Specific Reference Ranges. For more information see Policy Stat Procedure [place] High Sensitivity Troponin (TNIH) and attachments. Performed By: #### L 100.0100, L500.2500, L501.4020, L503.6620 ####[facility] [address] [place], [address] Inital Evaluation (1) - PTon 04-26-2024 Inital Evaluation (1) - PT Normal [facility] CBC W/Diff, Automatedon 03-31 Absolute Lymph 1.93 X10 3/uL Normal 0.83-4.51 [facility] Comment on above: Performed By: #### L 100.0100, L500.4050, L501.9985 ####[facility] [address] [place], [address] Absolute Neut 5.1 X10 3/uL Normal 2.0-7.7 [facility] Comment on above: Performed By: #### L 100.0100, L500.4050, L501.9985 ####[facility] [address] [place], [address] Basophils/100 WBC (Bld) 0.6 % Normal 0-1 [facility] Comment on above: Performed By: #### L 100.0100, L500.4050, L501.9985 ####[facility] [address] [place], [address] Eosinophils/100 WBC (Bld) 3.7 % Normal 0-5 [facility] Comment on above: Performed By: #### L 100.0100, L500.4050, L501.9985 ####[facility] [address] [place], [address] Erythrocyte distribution width (RBC) [Ratio] 16.0 % High 11.6-14.6 [facility] Comment on above: Performed By: #### L 100.0100, L500.4050, L501.9985 ####[facility] [address] [place], [address] Hematocrit (Bld) [Volume fraction] 34.9 % Low 37-47 [facility] Comment on above: Performed By: #### L 100.0100, L500.4050, L501.9985 ####[facility] [address] [place], [address] Hemoglobin (Bld) [Mass/Vol] 10.4 g/dL Low 12.0-15.0 [facility] Comment on above: Performed By: #### L 100.0100, L500.4050, L501.9985 ####[facility] [address] [place], [address] IG% 0.300 Normal 0.0-0.9 [facility] Comment on above: Result Comment: IG% - Immature Granulocytes (promyelocytes, myelocytes andmetamyelocytes) > 1% indicates that a LEFT SHIFT is Present. Performed By: #### L 100.0100, L500.4050, L501.9985 ####[facility] [address] [place], [address] Lymphocytes/100 WBC (Bld) 24.5 % Normal 19-41 [facility] Comment on above: Performed By: #### L 100.0100, L500.4050, [id number] ####[facility] [address] [place], [address] MCH (RBC) [Entitic mass] 24.4 pg Low 27.0-32.0 [facility] Comment on above: Performed By: #### L 100.0100, L500.4050, [id number] ####[facility] [address] [place], [address] MCHC (RBC) [Mass/Vol] 29.8 g/dL Low 32-36 [facility] Comment on above: Performed By: #### L 100.0100, L500.4050, [id number] ####[facility] [address] [place], [address] MCV (RBC) [Entitic vol] 81.9 fL Normal 81-99 [facility] Comment on above: Performed By: #### L 100.0100, L500.4050, [id number] ####[facility] [address] [place], [address] Monocytes/100 WBC (Bld) 6.8 % Normal 0-10 [facility] Comment on above: Performed By: #### L 100.0100, L500.4050, [id number] ####[facility] [address] [place], [address] Neutrophils/100 WBC (Bld) 64.1 % Normal 47-70 [facility] Comment on above: Performed By: #### L 100.0100, L500.4050, [id number] ####[facility] [address] [place], [address] Nucleated RBC (Bld) [#/Vol] 0 10*3/uL Normal 0-5 [facility] Comment on above: Performed By: #### L 100.0100, L500.4050, [id number] ####[facility] [address] [place], [address] Platelet mean volume (Bld) [Entitic vol] 10.7 fL Normal 6.2-12.0 [facility] Comment on above: Performed By: #### L 100.0100, L500.4050, [id number] ####[facility] [address] [place], [address] Platelets (Bld) [#/Vol] 294 10*3/uL Normal 150-450 [facility] Comment on above: Performed By: #### L 100.0100, L500.4050, [id number] ####[facility] [address] [place], [address] RBC (Bld) [#/Vol] 4.26 10*6/uL Normal 4.2-5.4 [facility] Comment on above: Performed By: #### L 100.0100, L500.4050, [id number] ####[facility] [address] [place], [address] RDW SD 48.0 fl High 35.1-43.9 [facility] Comment on above: Performed By: #### L 100.0100, L500.4050, [id number] ####[facility] [address] [place], [address] WBC (Bld) [#/Vol] 7.9 10*3/uL Normal 4.4-11.0 [facility] Comment on above: Performed By: #### L 100.0100, L500.4050, [id number] ####[facility] [address] [place], [address] Comprehensive Metabolic Prof ilon 04-18-2024 Albumin [Mass/Vol] 3.0 g/dL Low 3.2-5.0 [facility] Comment on above: Performed By: #### L 100.0100, L500.4050, [id number] ####[facility] [address] [place], [address] Albumin/Globulin [Mass ratio] 0.6 {ratio} Low 0.9-2.4 [facility] Comment on above: Performed By: #### L 100.0100, L500.4050, [id number] ####[facility] [address] [place], [address] ALK P 130 U/L High 45-117 [facility] Comment on above: Performed By: #### L 100.0100, L500.4050, [id number] ####[facility] [address] [place], [address] ALT [Catalytic activity/Vol] 14 U/L Normal 13-56 [facility] Comment on above: Performed By: #### L 100.0100, L500.4050, [id number] ####[facility] [address] [place], [address] AST [Catalytic activity/Vol] 22 U/L Normal 15-37 [facility] Comment on above: Performed By: #### L 100.0100, L500.4050, [id number] ####[facility] [address] [place], [address] Bilirubin [Mass/Vol] 0.30 mg/dL Normal 0.20-1.00 [facility] Comment on above: Result Comment: For patients on eltrombopag therapy, use of Dimension [place] TBIL is not recommended. Performed By: #### L 100.0100, L500.4050, [id number] ####[facility] [address] [place], [address] BUN/CRE 12.5 RATIO Normal 10-20 [facility] Comment on above: Performed By: #### L 100.0100, L500.4050, [id number] ####[facility] [address] [place], [address] CA,Total 11.0 mg/dL High 8.5-10.1 [facility] Comment on above: Performed By: #### L 100.0100, L500.4050, [id number] ####[facility] [address] [place], [address] Chloride [Moles/Vol] 101 mmol/L Normal 98-107 [facility] Comment on above: Performed By: #### L 100.0100, L500.4050, [id number] ####[facility] [address] [place], [address] CO2 [Moles/Vol] 26.0 mmol/L Normal 21.0-32.0 [facility] Comment on above: Performed By: #### L 100.0100, L500.4050, [id number] ####[facility] [address] [place], [address] Creatinine [Mass/Vol] 0.96 mg/dL Normal 0.55-1.02 [facility] Comment on above: Result Comment: The validity of the calculated GFR GFRAA in patients over70 years has not been determined. Clinical correlation isessential. Performed By: #### L 100.0100, L500.4050, [id number] ####[facility] [address] [place], [address] EST GFR - AA 72 mL/min Normal >60 [facility] Comment on above: Result Comment: Afri can Romanian GFR Calc Performed By: #### L 100.0100, L500.4050, [id number] ####[facility] [address] [place], [address] GAP 6 Normal 5-15 [facility] Comment on above: Performed By: #### L 100.0100, L500.4050, [id number] ####[facility] [address] [place], [address] GFR/1.73 sq M.predicted among non-blacks MDRD (S/P/Bld) [Vol rate/Area] 59 mL/min/{1.73_m2} Low >60 [facility] Comment on above: Result Comment: Non- GFR Calc Performed By: #### L 100.0100, L500.4050, [id number] ####[facility] [address] [place], [address] Globulin (S) [Mass/Vol] 5.4 g/dL High 2.2-4.2 [facility] Comment on above: Performed By: #### L 100.0100, L500.4050, [id number] ####[facility] [address] [place], [address] Glucose [Mass/Vol] 142 mg/dL High 74-106 [facility] Comment on above: Result Comment: Fast ing Glucose result greater than or equal to 126 mg/dLsuggests DIABETES MELLITUS per A.D.A. criteria. Performed By: #### L 100.0100, L500.4050, [id number] ####[facility] [address] [place], [address] Potassium [Moles/Vol] 3.5 mmol/L Normal 3.5-5.1 [facility] Comment on above: Performed By: #### L 100.0100, L500.4050, [id number] ####[facility] [address] [place], [address] Sodium [Moles/Vol] 133 mmol/L Low 136-145 [facility] Comment on above: Performed By: #### L 100.0100, L500.4050, [id number] ####[facility] [address] [place], [address] T PROT 8.4 g/dL High 6.4-8.2 [facility] Comment on above: Performed By: #### L 100.0100, L500.4050, [id number] ####[facility] [address] [place], [address] Urea nitrogen [Mass/Vol] 12 mg/dL Normal 7-18 [facility] Comment on above: Performed By: #### L 100.0100, L500.4050, [id number] ####[facility] [address] [place], [address] Hemoglobin A1con 04-18-2024 HbA1c (Bld) [Mass fraction] 8.2 % High 3.8-5.6 [facility] Comment on above: Result Comment: Norm al < 5.7 % Prediabetic 5.7 - 6.4 % Diabetic >or= 6.5 % Please note range changes. Performed By: #### L 100.0100, L500.4050, [id number] ####[facility] [address] [place], [address] Absolute lymphocyte countOrd ered By: Sunny Bell on 12-30-2023 Lymphocytes Auto (Unsp spec) [#/Vol] 2.48 10*3/uL 0.83-4.51 [facility] Automated lymphocyte count a s percentage of total leukocytesOrdered By: Sunny Bell on 12-30-2023 Lymphocytes/100 WBC Auto (Unsp spec) 25.3 % 19-41 [facility] Basophil percentageOrdered B y: Sunny Bell on 12-30-2023 Basophils/100 WBC (Bld) 0.3 % 0-1 [facility] Chloride [Moles/Vol] 104 mmol/L 98-107 [facility] Eosinophils/100 WBC (Bld) 1.4 % 0-5 [facility] Glucose [Mass/Vol] 127 mg/dL 74-106 [facility] Comment on above: Fasting Glucose resu lt greater than or equal to 126 mg/dL suggests DIABETES MELLITUS per A.D.A. criteria. Hemoglobin (Bld) [Mass/Vol] 10.7 g/dL 12.0-15.0 [facility] Monocytes/100 WBC (Bld) 8.7 % 0-10 [facility] Neutrophils (Bld) [#/Vol] 6.3 10*3/uL 2.0-7.7 [facility] Neutrophils/100 WBC (Bld) 63.9 % 47-70 [facility] Potassium [Moles/Vol] 4.4 mmol/L 3.5-5.1 [facility] Sodium [Moles/Vol] 135 mmol/L 136-145 [facility] WBC (Bld) [#/Vol] 9.8 10*3/uL 4.4-11.0 [facility] Determination of erythrocyte mean corpuscular volume (MCV)Ordered By: Sunny Bell on 12-30-2023 MCV (RBC) [Entitic vol] 84.9 fL 81-99 [facility] Erythrocyte distribution wid th ratioOrdered By: Sunny Bell on 12-30-2023 Erythrocyte distribution width (RBC) [Ratio] 15.5 % 11.6-14.6 [facility] Erythrocyte distribution wid th standard deviationOrdered By: Sunny Bell on 12-30-2023 Erythrocyte distribution width (RBC) [Entitic vol] 47.9 fL 35.1-43.9 [facility] Hematocrit Auto (Bld) [Volum e fraction]Ordered By: Sunny Bell on 12-30-2023 Hematocrit (Bld) [Volume fraction] 33.8 % 37-47 [facility] Immature granulocytes/100 WB C Auto (Bld)Ordered By: Sunny Bell on 12-30-2023 Immature granulocytes/100 WBC (Bld) 0.400 % 0.0-0.9 [facility] Comment on above: IG% - Immature Granu locytes (promyelocytes, myelocytes and metamyelocytes) > 1% indicates that a LEFT SHIFT is Present. Laboratory - Chemistry and C hemistry - challengeOrdered By: Sunny Bell on 12-30-2023 CO2 [Moles/Vol] 27.0 mmol/L 21.0-32.0 [facility] Urea nitrogen/Creatinine [Mass ratio] 21.3 mg/mg 10-20 [facility] Laboratory - Hematology and Cell countsOrdered By: Sunny Bell on 12-30-2023 MCH (RBC) [Entitic mass] 26.9 pg 27.0-32.0 [facility] MCHC (RBC) [Mass/Vol] 31.7 g/dL 32-36 [facility] Nucleated RBC/100 WBC (Bld) [Ratio] 0 % 0-5 [facility] Platelet mean volume (Bld) [Entitic vol] 11.3 fL 6.2-12.0 [facility] Platelets (Bld) [#/Vol] 191 10*3/uL 150-450 [facility] No Panel InformationOrdered By: Sunny Bell on 12-30-2023 Estimated Creatinine Clearance Calc 40.01 ml/min [facility] Estimated GFR (MDRD) Amer 63 mL/min >60 [facility] Comment on above: GFR Calc Estimated GFR (MDRD) Non-Af Amer 52 mL/min >60 [facility] Comment on above: Non- GFR Calc RBC Auto (Bld) [#/Vol]Ordere d By: Sunny Bell on 12-30-2023 RBC (Bld) [#/Vol] 3.98 10*6/uL 4.2-5.4 [facility] Serum or plasma calcium melanie urement (mass/volume)Ordered By: Sunny Bell on 12-30-2023 Calcium [Mass/Vol] 11.3 mg/dL 8.5-10.1 [facility] Serum or plasma creatinine m easurement (mass/volume)Ordered By: Sunny Bell on 12-30-2023 Creatinine [Mass/Vol] 1.08 mg/dL 0.55-1.02 [facility] Comment on above: The validity of the calculated GFR & GFRAA in patients over 70 years has not been determined. Clinical correlation is essential. Serum or plasma urea nitroge n measurement (mass/volume)Ordered By: Sunny Bell on 12-30-2023 Urea nitrogen [Mass/Vol] 23 mg/dL 7-18 [facility] Thin prep Papanicolaou smear with manual screeningOrdered By: Snuny Bell on 12-30-2023 Thin prep Papanicolaou smear with manual screening 78 mg/dL 74-106 [facility] Comment on above: MANAGEMENT OF PATIEN T CARE PER NURSING PROTOCOL Thin prep Papanicolaou smear with manual screening 4 5-15 [facility] Basophil percentageOrdered B y: Sunny Bell on 12-28-2023 Basophil percentage 3.0 mg/dL 2.5-4.9 [facility] No Panel InformationOrdered By: Nestor Bartlett on 12-28-2023 Parathyroid Hormone (Intact) 177.6 pg/mL 18.4-80.1 [facility] Absolute lymphocyte countOrd ered By: Queta Cortez on 12-27-2023 Lymphocytes Auto (Unsp spec) [#/Vol] 3.04 10*3/uL 0.83-4.51 [facility] Activated partial thrombopla stin time (aPTT) in platelet poor plasma by coagulation aOrdered By: Queta Cortez on 12-27-2023 aPTT Coag (PPP) [Time] 27.3 s 24.1-36.2 [facility] Automated lymphocyte count a s percentage of total leukocytesOrdered By: Queta Cortez on 12-27-2023 Lymphocytes/100 WBC Auto (Unsp spec) 37.1 % 19-41 [facility] Basophil percentageOrdered B y: Queta Cortez on 12-27-2023 Basophils/100 WBC (Bld) 0.5 % 0-1 [facility] Chloride [Moles/Vol] 103 mmol/L 98-107 [facility] Eosinophils/100 WBC (Bld) 3.1 % 0-5 [facility] Glucose [Mass/Vol] 254 mg/dL 74-106 [facility] Comment on above: Glucose result great er than or equal to 200 mg/dLsuggests DIABETES MELLITUS per A.D.A. criteria. Hemoglobin (Bld) [Mass/Vol] 12.4 g/dL 12.0-15.0 [facility] Monocytes/100 WBC (Bld) 6.6 % 0-10 [facility] Neutrophils (Bld) [#/Vol] 4.2 10*3/uL 2.0-7.7 [facility] Neutrophils/100 WBC (Bld) 51.7 % 47-70 [facility] Potassium [Moles/Vol] 4.2 mmol/L 3.5-5.1 [facility] Sodium [Moles/Vol] 136 mmol/L 136-145 [facility] WBC (Bld) [#/Vol] 8.2 10*3/uL 4.4-11.0 [facility] Determination of erythrocyte mean corpuscular volume (MCV)Ordered By: Queta Cortez on 12-27-2023 MCV (RBC) [Entitic vol] 85.2 fL 81-99 [facility] Erythrocyte distribution wid th ratioOrdered By: Queta Cortez on 12-27-2023 Erythrocyte distribution width (RBC) [Ratio] 15.5 % 11.6-14.6 [facility] Erythrocyte distribution wid th standard deviationOrdered By: Queta Cortez on 12-27-2023 Erythrocyte distribution width (RBC) [Entitic vol] 47.0 fL 35.1-43.9 [facility] Hematocrit Auto (Bld) [Volum e fraction]Ordered By: Queta Cortez on 12-27-2023 Hematocrit (Bld) [Volume fraction] 39.8 % 37-47 [facility] Immature granulocytes/100 WB C Auto (Bld)Ordered By: Queta Cortez on 12-27-2023 Immature granulocytes/100 WBC (Bld) 1.000 % 0.0-0.9 [facility] Comment on above: IG% - Immature Granu locytes (promyelocytes, myelocytes and metamyelocytes) > 1% indicates that a LEFT SHIFT is Present. Laboratory - Chemistry and C hemistry - challengeOrdered By: Queta Cortez on 12-27-2023 CO2 [Moles/Vol] 29.0 mmol/L 21.0-32.0 [facility] Urea nitrogen/Creatinine [Mass ratio] 18.5 mg/mg 10-20 [facility] Laboratory - CoagulationOrde red By: Queta Cortez on 12-27-2023 INR Coag (Bld) [Relative time] 1.1 {INR} [facility] PT Coag (PPP) [Time] 13.7 s 11.7-14.9 [facility] Laboratory - Hematology and Cell countsOrdered By: Queta Cortez on 12-27-2023 MCH (RBC) [Entitic mass] 26.6 pg 27.0-32.0 [facility] MCHC (RBC) [Mass/Vol] 31.2 g/dL 32-36 [facility] Nucleated RBC/100 WBC (Bld) [Ratio] 0 % 0-5 [facility] Platelet mean volume (Bld) [Entitic vol] 11.5 fL 6.2-12.0 [facility] Platelets (Bld) [#/Vol] 237 10*3/uL 150-450 [facility] No Panel InformationOrdered By: Queta Cortez on 12-27-2023 Estimated Creatinine Clearance Calc 37.33 ml/min [facility] Estimated GFR (MDRD) Amer 56 mL/min >60 [facility] Comment on above: GFR Calc Estimated GFR (MDRD) Non-Af Amer 46 mL/min >60 [facility] Comment on above: Non- GFR Calc RBC Auto (Bld) [#/Vol]Ordere d By: Queta Cortez on 12-27-2023 RBC (Bld) [#/Vol] 4.67 10*6/uL 4.2-5.4 [facility] Serum or plasma calcium melanie urement (mass/volume)Ordered By: Queta Cortez on 12-27-2023 Calcium [Mass/Vol] 11.2 mg/dL 8.5-10.1 [facility] Serum or plasma creatinine m easurement (mass/volume)Ordered By: Queta Cortez on 12-27-2023 Creatinine [Mass/Vol] 1.19 mg/dL 0.55-1.02 [facility] Comment on above: The validity of the calculated GFR & GFRAA in patients over 70 years has not been determined. Clinical correlation is essential. Serum or plasma urea nitroge n measurement (mass/volume)Ordered By: Queta Cortez on 12-27-2023 Urea nitrogen [Mass/Vol] 22 mg/dL 7-18 [facility] Thin prep Papanicolaou smear with manual screeningOrdered By: Queta Cortez on 12-27-2023 Thin prep Papanicolaou smear with manual screening 4 5-15 [facility] Whole blood hemoglobin A1c/t otal hemoglobin ratio (mass fraction)Ordered By: Nestor Bartlett on 12-27-2023 HbA1c (Bld) [Mass fraction] 9.4 % 3.8-5.6 [facility] Comment on above: Normal < 5.7 % Predi abetic 5.7 - 6.4 % Diabetic >or= 6.5 % Please note range changes. Absolute lymphocyte countOrd ered By: Ramone Smiley on 10-26-2023 Lymphocytes Auto (Unsp spec) [#/Vol] 2.86 10*3/uL 0.83-4.51 [facility] Automated lymphocyte count a s percentage of total leukocytesOrdered By: Ramoen Smiley on 10-26-2023 Lymphocytes/100 WBC Auto (Unsp spec) 31.9 % 19-41 [facility] Basophil percentageOrdered B y: Ramone Smiley on 10-26-2023 Basophils/100 WBC (Bld) 0.6 % 0-1 [facility] Bilirubin [Mass/Vol] 0.30 mg/dL 0.20-1.00 [facility] Comment on above: For patients on eltr ombopag therapy, use of Dimension [place] TBIL is not recommended. Chloride [Moles/Vol] 101 mmol/L 98-107 [facility] Eosinophils/100 WBC (Bld) 2.6 % 0-5 [facility] Glucose [Mass/Vol] 135 mg/dL 74-106 [facility] Comment on above: Fasting Glucose resu lt greater than or equal to 126 mg/dL suggests DIABETES MELLITUS per A.D.A. criteria. Hemoglobin (Bld) [Mass/Vol] 10.9 g/dL 12.0-15.0 [facility] Monocytes/100 WBC (Bld) 8.0 % 0-10 [facility] Neutrophils (Bld) [#/Vol] 5.1 10*3/uL 2.0-7.7 [facility] Neutrophils/100 WBC (Bld) 56.6 % 47-70 [facility] Potassium [Moles/Vol] 4.5 mmol/L 3.5-5.1 [facility] Protein [Mass/Vol] 8.6 g/dL 6.4-8.2 [facility] Sodium [Moles/Vol] 134 mmol/L 136-145 [facility] WBC (Bld) [#/Vol] 9.0 10*3/uL 4.4-11.0 [facility] Determination of erythrocyte mean corpuscular volume (MCV)Ordered By: Ramone Smiley on 10-26-2023 MCV (RBC) [Entitic vol] 85.8 fL 81-99 [facility] Erythrocyte distribution wid th ratioOrdered By: Ramone Smiley on 10-26-2023 Erythrocyte distribution width (RBC) [Ratio] 17.5 % 11.6-14.6 [facility] Erythrocyte distribution wid th standard deviationOrdered By: Ramone Smiley on 10-26-2023 Erythrocyte distribution width (RBC) [Entitic vol] 55.2 fL 35.1-43.9 [facility] Hematocrit Auto (Bld) [Volum e fraction]Ordered By: Ramone Smiley on 10-26-2023 Hematocrit (Bld) [Volume fraction] 36.2 % 37-47 [facility] Immature granulocytes/100 WB C Auto (Bld)Ordered By: Ramone Smiley on 10-26-2023 Immature granulocytes/100 WBC (Bld) 0.300 % 0.0-0.9 [facility] Comment on above: IG% - Immature Granu locytes (promyelocytes, myelocytes and metamyelocytes) > 1% indicates that a LEFT SHIFT is Present. Laboratory - Chemistry and C hemistry - challengeOrdered By: Ramone Smiley on 10-26-2023 Albumin/Globulin [Mass ratio] 0.6 {ratio} 0.9-2.4 [facility] ALP [Catalytic activity/Vol] 109 U/L 45-117 [facility] ALT [Catalytic activity/Vol] 17 U/L 13-56 [facility] CO2 [Moles/Vol] 27.0 mmol/L 21.0-32.0 [facility] Cobalamin (Vitamin B12) [Mass/Vol] 654 pg/mL 211-911 [facility] Ferritin [Mass/Vol] 99 ng/mL 8-252 [facility] Globulin (S) [Mass/Vol] 5.4 g/dL 2.2-4.2 [facility] Urea nitrogen/Creatinine [Mass ratio] 17.6 mg/mg 10-20 [facility] Laboratory - Hematology and Cell countsOrdered By: Ramone Smiley on 10-26-2023 MCH (RBC) [Entitic mass] 25.8 pg 27.0-32.0 [facility] MCHC (RBC) [Mass/Vol] 30.1 g/dL 32-36 [facility] Nucleated RBC/100 WBC (Bld) [Ratio] 0 % 0-5 [facility] Platelet mean volume (Bld) [Entitic vol] 11.6 fL 6.2-12.0 [facility] Platelets (Bld) [#/Vol] 268 10*3/uL 150-450 [facility] No Panel InformationOrdered By: Ramone Smiley on 10-26-2023 Estimated GFR (MDRD) Amer 67 mL/min >60 [facility] Comment on above: GFR Calc Estimated GFR (MDRD) Non-Af Amer 55 mL/min >60 [facility] Comment on above: Non- GFR Calc Folate 23.70 ng/mL 3.1-55.4 [facility] Vitamin D 25-Hydroxy 34.5 ng/mL [facility] Comment on above: Vitamin D 25(OH) Sta tus Range Deficiency <20 ng/mL (50nmol/L) Insufficiency 20 - 30 ng/mL (50 - 75 nmol/L) Sufficiency 30 - 100 ng/mL (75 - 250 nmol/L) Toxicity >100 ng/mL (>250 nmol/L) RBC Auto (Bld) [#/Vol]Ordere d By: Ramone Smiley on 10-26-2023 RBC (Bld) [#/Vol] 4.22 10*6/uL 4.2-5.4 [facility] Serum or plasma calcium melanie urement (mass/volume)Ordered By: Ramone Smiley on 10-26-2023 Calcium [Mass/Vol] 11.2 mg/dL 8.5-10.1 [facility] Serum or plasma creatinine m easurement (mass/volume)Ordered By: Ramone Smiley on 10-26-2023 Creatinine [Mass/Vol] 1.02 mg/dL 0.55-1.02 [facility] Comment on above: The validity of the calculated GFR & GFRAA in patients over 70 years has not been determined. Clinical correlation is essential. Serum or plasma thyroid stim ulating hormone (TSH) measurement (units/volume)Ordered By: Ramone Smiley on 10-26-2023 TSH Qn 0.66 uIU/mL 0.358-3.74 [facility] Serum or plasma urea nitroge n measurement (mass/volume)Ordered By: Ramone Smiley on 10-26-2023 Urea nitrogen [Mass/Vol] 18 mg/dL 7-18 [facility] Thin prep Papanicolaou smear with manual screeningOrdered By: Ramone Smiley on 10-26-2023 Thin prep Papanicolaou smear with manual screening 3.2 g/dL 3.2-5.0 [facility] Thin prep Papanicolaou smear with manual screening 18 U/L 15-37 [facility] Thin prep Papanicolaou smear with manual screening 6 5-15 [facility] Whole blood hemoglobin A1c/t otal hemoglobin ratio (mass fraction)Ordered By: Ramone Smiley on 10-26-2023 HbA1c (Bld) [Mass fraction] 8.2 % 3.8-5.6 [facility] Comment on above: Normal < 5.7 % Predi abetic 5.7 - 6.4 % Diabetic >or= 6.5 % Please note range changes. Basophil percentageOrdered B y: Nestor Dhruv on 08-17-2023 Chloride [Moles/Vol] 105 mmol/L 98-107 [facility] Glucose [Mass/Vol] 167 mg/dL 74-106 [facility] Comment on above: Fasting Glucose resu lt greater than or equal to 126 mg/dL suggests DIABETES MELLITUS per A.D.A. criteria. Potassium [Moles/Vol] 4.9 mmol/L 3.5-5.1 [facility] Sodium [Moles/Vol] 139 mmol/L 136-145 [facility] WBC (Bld) [#/Vol] 8.4 10*3/uL 4.4-11.0 [facility] Blood erythrocytes count (nu mber/volume)Ordered By: Nestor Bartlett on 08-17-2023 RBC (Bld) [#/Vol] 3.41 10*6/uL 4.2-5.4 [facility] Blood hemoglobin measurement (mass/volume)Ordered By: Nestor Bartlett on 08-17-2023 Hemoglobin (Bld) [Mass/Vol] 8.9 g/dL 12.0-15.0 [facility] Blood platelet mean volumeOr dered By: Nestor Bartlett on 08-17-2023 Platelet mean volume (Bld) [Entitic vol] 10.4 fL 6.2-12.0 [facility] Determination of erythrocyte mean corpuscular volume (MCV)Ordered By: Nestor Bartlett on 08-17-2023 MCV (RBC) [Entitic vol] 84.5 fL 81-99 [facility] Glucose Glucometer (dC) [M ass/Vol]Ordered By: Sandeep Denson on 08-17-2023 Glucose [Mass/Vol] 267 mg/dL 74-106 [facility] Comment on above: MANAGEMENT OF PATIEN T CARE PER NURSING PROTOCOL Hematocrit Auto (Bld) [Volum e fraction]Ordered By: Nestor Bartlett on 08-17-2023 Hematocrit (Bld) [Volume fraction] 28.8 % 37-47 [facility] Laboratory - Chemistry and C hemistry - challengeOrdered By: Nestor Bartlett on 08-17-2023 CO2 [Moles/Vol] 30.0 mmol/L 21.0-32.0 [facility] Urea nitrogen/Creatinine [Mass ratio] 19.9 mg/mg 10-20 [facility] Laboratory - Hematology and Cell countsOrdered By: Nestor Bartlett on 08-17-2023 Erythrocyte distribution width (RBC) [Entitic vol] 55.6 fL 35.1-43.9 [facility] Erythrocyte distribution width (RBC) [Ratio] 17.9 % 11.6-14.6 [facility] MCH (RBC) [Entitic mass] 26.1 pg 27.0-32.0 [facility] MCHC Auto (RBC) [Mass/Vol]Or dered By: Nestor Bartlett on 08-17-2023 MCHC (RBC) [Mass/Vol] 30.9 g/dL 32-36 [facility] No Panel InformationOrdered By: Nestor Bartlett on 08-17-2023 Estimated Creatinine Clearance Calc 41.47 ml/min [facility] Estimated GFR (MDRD) Amer 77 mL/min >60 [facility] Comment on above: GFR Calc Estimated GFR (MDRD) Non-Af Amer 64 mL/min >60 [facility] Comment on above: Non- GFR Calc Platelets bldOrdered By: Neida Bartlett on 08-17-2023 Platelets (Bld) [#/Vol] 480 10*3/uL 150-450 [facility] Serum or plasma calcium melanie urement (mass/volume)Ordered By: Nestor Bartlett on 08-17-2023 Calcium [Mass/Vol] 10.6 mg/dL 8.5-10.1 [facility] Serum or plasma creatinine m easurement (mass/volume)Ordered By: Nestor Bartlett on 08-17-2023 Creatinine [Mass/Vol] 0.91 mg/dL 0.55-1.02 [facility] Comment on above: The validity of the calculated GFR & GFRAA in patients over 70 years has not been determined. Clinical correlation is essential. Serum or plasma urea nitroge n measurement (mass/volume)Ordered By: Nestor Bartlett on 08-17-2023 Urea nitrogen [Mass/Vol] 18 mg/dL - [facility] Thin prep Papanicolaou smear with manual screeningOrdered By: Nestor Bartlett on 08-17-2023 Thin prep Papanicolaou smear with manual screening 4 01-12 [facility] Absolute lymphocyte countOrd ered By: Heydi Amaya on 08-14-2023 Lymphocytes Auto (Unsp spec) [#/Vol] 1.25 10*3/uL 0.83-4.51 [facility] Basophil percentageOrdered B y: Heydi Amaya on 08-14-2023 Basophil percentage 1.7 mg/dL 2.5-4.9 [facility] Basophils/100 WBC (Bld) 0.3 % 0-1 [facility] Eosinophils/100 WBC (Bld) 0.6 % 0-5 [facility] Neutrophils (Bld) [#/Vol] 9.0 10*3/uL 2.0-7.7 [facility] Neutrophils/100 WBC (Bld) 79.7 % 47-70 [facility] Blood lymphocytes/100 leukoc ytesOrdered By: Heydi Amaya on 08-14-2023 Lymphocytes/100 WBC (Bld) 11.1 % 19-41 [facility] Blood monocytes/100 leukocyt esOrdered By: Heydi Amaya on 08-14-2023 Monocytes/100 WBC (Bld) 6.1 % 0-10 [facility] Iron measurement (mass/mass) Ordered By: Nestor Bartlett on 08-14-2023 Iron (Unsp spec) [Mass/Mass] 14 ug/dL 50-170 [facility] Laboratory - Chemistry and C hemistry - challengeOrdered By: Nestor Bartlett on 08-14-2023 Cobalamin (Vitamin B12) [Mass/Vol] 250 pg/mL 211-911 [facility] Laboratory - Chemistry and C hemistry - challengeOrdered By: Heydi Amaya on 08-14-2023 Free T4 [Mass/Vol] 1.51 ng/dL 0.76-1.46 [facility] Magnesium [Mass/Vol] 2.1 mg/dL 1.6-2.6 [facility] Laboratory - Hematology and Cell countsOrdered By: Heydi Amaya on 08-14-2023 Immature granulocytes/100 WBC (Bld) 2.200 % 0.0-0.9 [facility] Comment on above: IG% - Immature Granu locytes (promyelocytes, myelocytes and metamyelocytes) > 1% indicates that a LEFT SHIFT is Present. Nucleated RBC/100 WBC (Bld) [Ratio] 0 % 0-5 [facility] No Panel InformationOrdered By: Heydi Amaya on 08-14-2023 Free Triiodothyronine (T3) pg/dL 1.9 pg/mL 2.18-3.98 [facility] Parathyroid Hormone (Intact) 153.7 pg/mL 18.4-80.1 [facility] Thyroid Stimulating Hormone (TSH) 0.01 uIU/mL 0.358-3.74 [facility] Vitamin D 25-Hydroxy 39.9 ng/mL [facility] Comment on above: Vitamin D 25(OH) Sta tus Range Deficiency <20 ng/mL (50nmol/L) Insufficiency 20 - 30 ng/mL (50 - 75 nmol/L) Sufficiency 30 - 100 ng/mL (75 - 250 nmol/L) Toxicity >100 ng/mL (>250 nmol/L) No Panel InformationOrdered By: Nestor Bartlett on 08-14-2023 Total Iron Binding Capacity 197 ug/dL 250-450 [facility] Serum or plasma ferritin rubina surement (mass/volume)Ordered By: Nestor Bartlett on 08-14-2023 Ferritin [Mass/Vol] 1578 ng/mL 8-252 [facility] Serum or plasma folate measu rement (mass/volume)Ordered By: Nestor Bartlett on 08-14-2023 Folate [Mass/Vol] 2.90 ng/mL 3.1-55.4 [facility] Serum or plasma iron saturat ion measurement (mass fraction)Ordered By: Nestor Bartlett on 08-14-2023 Iron saturation [Mass fraction] 7.1 % 15.0-55.0 [facility] Thin prep Papanicolaou smear with manual screeningOrdered By: Heydi Amaya on 08-14-2023 Thin prep Papanicolaou smear with manual screening 285 mOsm/KG 280-301 [facility] Absolute lymphocyte countOrd ered By: Robert Allison on 08-13-2023 Lymphocytes Auto (Unsp spec) [#/Vol] 1.37 10*3/uL 0.83-4.51 [facility] Basophil percentageOrdered B y: Robert Allison on 08-13-2023 Basophil percentage 10-25 SEEN /hpf 0-5 [facility] Lactate [Moles/Vol] 1.2 mmol/L 0.4-2.0 [facility] Basophils/100 WBC (Bld) 0.3 % 0-1 [facility] Bilirubin [Mass/Vol] 0.60 mg/dL 0.20-1.00 [facility] Comment on above: For patients on eltr ombopag therapy, use of Dimension [place] TBIL is not recommended. Chloride [Moles/Vol] 92 mmol/L 98-107 [facility] Eosinophils/100 WBC (Bld) 0.1 % 0-5 [facility] Glucose [Mass/Vol] 212 mg/dL 74-106 [facility] Comment on above: Glucose result great er than or equal to 200 mg/dLsuggests DIABETES MELLITUS per A.D.A. criteria. Neutrophils (Bld) [#/Vol] 12.1 10*3/uL 2.0-7.7 [facility] Neutrophils/100 WBC (Bld) 82.7 % 47-70 [facility] Potassium [Moles/Vol] 3.8 mmol/L 3.5-5.1 [facility] Comment on above: Moderate Hemolysis, Result may be falsely increased. Protein [Mass/Vol] 7.8 g/dL 6.4-8.2 [facility] Sodium [Moles/Vol] 127 mmol/L 136-145 [facility] WBC (Bld) [#/Vol] 14.7 10*3/uL 4.4-11.0 [facility] Bilirubin Test strip Ql (U)O rdered By: Robert Allison on 08-13-2023 Bilirubin Ql (U) Negative Negative [facility] Blood erythrocytes count (nu mber/volume)Ordered By: Robert Allison on 08-13-2023 RBC (Bld) [#/Vol] 3.83 10*6/uL 4.2-5.4 [facility] Blood hemoglobin measurement (mass/volume)Ordered By: Robert Allison on 08-13-2023 Hemoglobin (Bld) [Mass/Vol] 10.0 g/dL 12.0-15.0 [facility] Blood lymphocytes/100 leukoc ytesOrdered By: Robert Allison on 08-13-2023 Lymphocytes/100 WBC (Bld) 9.4 % 19-41 [facility] Blood monocytes/100 leukocyt esOrdered By: Robert Allison on 08-13-2023 Monocytes/100 WBC (Bld) 6.1 % 0-10 [facility] Blood platelet mean volumeOr dered By: Robert Allison on 08-13-2023 Platelet mean volume (Bld) [Entitic vol] 10.8 fL 6.2-12.0 [facility] Culture, urineOrdered By: Ester Allison on 08-13-2023 Bacteria identified Cx Nom (U) Klebsiella pneumoniae sp pneum [facility] Determination of erythrocyte mean corpuscular volume (MCV)Ordered By: Robert Allison on 08-13-2023 MCV (RBC) [Entitic vol] 85.1 fL 81-99 [facility] Hematocrit Auto (Bld) [Volum e fraction]Ordered By: Robert Allison on 08-13-2023 Hematocrit (Bld) [Volume fraction] 32.6 % 37-47 [facility] Influenza virus A and B and SARS-CoV-2 (COVID-19) Ag panel - Upper respiratory specimOrdered By: Robert Allison on 08-13-2023 SARS-CoV-2 (COVID-19) RNA BEBETO+probe Ql (Resp) [facility] Ketones Test strip Ql (U)Ord ered By: Robert Allison on 08-13-2023 Ketones Ql (U) 50 mg/dl Negative [facility] Laboratory - Chemistry and C hemistry - challengeOrdered By: Heydi Amaya on 08-13-2023 Sodium (U) [Moles/Vol] 24 mmol/L Not Establ. [facility] Laboratory - Chemistry and C hemistry - challengeOrdered By: Robert Allison on 08-13-2023 ALP [Catalytic activity/Vol] 105 U/L 45-117 [facility] ALT [Catalytic activity/Vol] 29 U/L 13-56 [facility] CO2 [Moles/Vol] 23.0 mmol/L 21.0-32.0 [facility] Globulin (S) [Mass/Vol] 5.6 g/dL 2.2-4.2 [facility] Urea nitrogen/Creatinine [Mass ratio] 26.3 mg/mg 10-20 [facility] Laboratory - Hematology and Cell countsOrdered By: Robert Allison on 08-13-2023 Erythrocyte distribution width (RBC) [Entitic vol] 53.7 fL 35.1-43.9 [facility] Erythrocyte distribution width (RBC) [Ratio] 17.2 % 11.6-14.6 [facility] Immature granulocytes/100 WBC (Bld) 1.400 % 0.0-0.9 [facility] Comment on above: IG% - Immature Granu locytes (promyelocytes, myelocytes and metamyelocytes) > 1% indicates that a LEFT SHIFT is Present. MCH (RBC) [Entitic mass] 26.1 pg 27.0-32.0 [facility] Nucleated RBC/100 WBC (Bld) [Ratio] 0 % 0-5 [facility] Laboratory - Microbiology an d Antimicrobial susceptibilityOrdered By: Robert Allison on 08-13-2023 Bacteria identified Cx Nom (Bld) GNR lactose wet machine cutter [facility] MCHC Auto (RBC) [Mass/Vol]Or dered By: Robert Allison on 08-13-2023 MCHC (RBC) [Mass/Vol] 30.7 g/dL 32-36 [facility] Mucus LM Ql (Urine sed)Order ed By: Robert Allison on 08-13-2023 Mucus Ql (Urine sed) 0 SEEN /hpf [facility] Nitrite Test strip Ql (U)Ord ered By: Robert Allison on 08-13-2023 Nitrite Ql (U) Negative Negative [facility] No Panel InformationOrdered By: Heydi Amaya on 08-13-2023 Urine Potassium 8.0 mmol/L Not Establ. [facility] Urine Urea Nitrogen 334 mg/dL NO RANGE EST. [facility] No Panel InformationOrdered By: Robert Allison on 08-13-2023 Estimated Creatinine Clearance Calc 31.98 ml/min [facility] Estimated GFR (MDRD) Amer 57 mL/min >60 [facility] Comment on above: GFR Calc Estimated GFR (MDRD) Non-Af Amer 47 mL/min >60 [facility] Comment on above: Non- GFR Calc Troponin I High Sensitivity 39 pg/mL 3.0-54.0 [facility] Comment on above: Please Note: New Rosi t Units and Gender Specific Reference Ranges. For more information see Policy Stat Procedure [place] High Sensitivity Troponin (TNIH) and attachments. Platelets bldOrdered By: Harriet Allison on 08-13-2023 Platelets (Bld) [#/Vol] 412 10*3/uL 150-450 [facility] Protein Test strip Ql (U)Ord ered By: Robert Allison on 08-13-2023 Protein Ql (U) 30 mg/dl Negative [facility] Serum or plasma albumin melanie urement (mass/volume)Ordered By: Robert Allison on 08-13-2023 Albumin [Mass/Vol] 2.2 g/dL 3.2-5.0 [facility] Serum or plasma albumin/glob ulin mass ratioOrdered By: Robert Allison on 08-13-2023 Albumin/Globulin [Mass ratio] 0.4 {ratio} 0.9-2.4 [facility] Serum or plasma calcium melanie urement (mass/volume)Ordered By: Robert Allison on 08-13-2023 Calcium [Mass/Vol] 10.5 mg/dL 8.5-10.1 [facility] Serum or plasma creatinine m easurement (mass/volume)Ordered By: Robert Allison on 08-13-2023 Creatinine [Mass/Vol] 1.18 mg/dL 0.55-1.02 [facility] Comment on above: The validity of the calculated GFR & GFRAA in patients over 70 years has not been determined. Clinical correlation is essential. Serum or plasma urea nitroge n measurement (mass/volume)Ordered By: Robert Allison on 08-13-2023 Urea nitrogen [Mass/Vol] 31 mg/dL 7-18 [facility] Squamous epithelial cells de tection in urine sediment by light microscopyOrdered By: Robert Allison on 08-13-2023 Epithelial cells.squamous LM Ql (Urine sed) 0 SEEN /hpf 5-10 [facility] Thin prep Papanicolaou smear with manual screeningOrdered By: Heydi Amaya on 08-13-2023 Thin prep Papanicolaou smear with manual screening 20 mmol/L Not Establ. [facility] Thin prep Papanicolaou smear with manual screeningOrdered By: Robert Allison on 08-13-2023 Thin prep Papanicolaou smear with manual screening 36 U/L 15- [facility] Comment on above: Moderate Hemolysis, Result may be falsely increased. Thin prep Papanicolaou smear with manual screening 01-12 [facility] Upper respiratory specimen i nfluenza A virus, influenza B virus, and severe acute resOrdered By: Robert Allison on 08-13-2023 Upper respiratory specimen influenza A virus, influenza B virus, and severe acute res [facility] Urine blood detectionOrdered By: Robert Allison on 08-13-2023 RBC Ql (U) 50 /ul Negative [facility] RBC Ql (U) 0-5 SEEN /hpf 0-5 [facility] Urine clarityOrdered By: Harriet Allison on 08-13-2023 Clarity (U) Sl. Cloudy Clear [facility] Urine color determinationOrd ered By: Robert Allison on 08-13-2023 Color (U) Yellow Yellow [facility] Urine creatinine measurement (mass/volume)Ordered By: Heydi Amaya on 08-13-2023 Creatinine (U) [Mass/Vol] 37.60 mg/dL NO RANGE EST. [facility] Urine glucose detectionOrder ed By: Robert Allison on 08-13-2023 Glucose Ql (U) 1000 mg/dl Normal [facility] Urine leukocyte esterase det ection by dipstickOrdered By: Robert Allison on 08-13-2023 Leukocyte esterase Test strip Ql (U) 500 /ul Negative [facility] Urine osmolality measurement Ordered By: Heydi Amaya on 08-13-2023 Osmolality (U) [Osmolality] 269 mOsm/KG >50 [facility] Comment on above: Normal Urine Referen ce Ranges Random: 50 - 1200 mOsm/kg H20 depending on fluid intake Random: >850 mOsm/kg after 12 hour fluid restriction 24 hour: ~300 - 900 mOsm/kg H2O Urine pHOrdered By: Robert sibley on 08-13-2023 pH (U) 5.0 [pH] 5.0 - 8.0 [facility] Urine sediment bacteria coun t by microscopy (number/high power field)Ordered By: Robret Allison on 08-13-2023 Bacteria LM.HPF (Urine sed) [#/Area] 3 /[HPF] None Seen [facility] Urine specific gravity measu rementOrdered By: Robert Allison on 08-13-2023 Specific gravity (U) [Rel density] 1.015 1.002-1.030 [facility] Urobilinogen Auto test strip Ql (U)Ordered By: Robert Allison on 08-13-2023 Urobilinogen Ql (U) Normal mg/dl Normal [facility] Absolute lymphocyte countOrd ered By: Winston Gill on 07-18-2023 Lymphocytes Auto (Unsp spec) [#/Vol] 0.92 10*3/uL 0.83-4.51 [facility] Basophil percentageOrdered B y: Winston Gill on 07-18-2023 Basophil percentage >100 SEEN /hpf 0-5 [facility] Basophils/100 WBC (Bld) 0.4 % 0-1 [facility] Bilirubin [Mass/Vol] 0.40 mg/dL 0.20-1.00 [facility] Comment on above: For patients on eltr ombopag therapy, use of Dimension [place] TBIL is not recommended. Chloride [Moles/Vol] 95 mmol/L 98-107 [facility] Eosinophils/100 WBC (Bld) 0.7 % 0-5 [facility] Glucose [Mass/Vol] 139 mg/dL 74-106 [facility] Comment on above: Fasting Glucose resu lt greater than or equal to 126 mg/dL suggests DIABETES MELLITUS per A.D.A. criteria. Neutrophils (Bld) [#/Vol] 5.4 10*3/uL 2.0-7.7 [facility] Neutrophils/100 WBC (Bld) 76.5 % 47-70 [facility] Potassium [Moles/Vol] 3.7 mmol/L 3.5-5.1 [facility] Protein [Mass/Vol] 7.4 g/dL 6.4-8.2 [facility] Sodium [Moles/Vol] 131 mmol/L 136-145 [facility] WBC (Bld) [#/Vol] 7.0 10*3/uL 4.4-11.0 [facility] Bilirubin Test strip Ql (U)O rdered By: Winston Gill on 07-18-2023 Bilirubin Ql (U) Negative Negative [facility] Blood erythrocytes count (nu mber/volume)Ordered By: Winston Gill on 07-18-2023 RBC (Bld) [#/Vol] 3.85 10*6/uL 4.2-5.4 [facility] Blood hemoglobin measurement (mass/volume)Ordered By: Winston Gill on 07-18-2023 Hemoglobin (Bld) [Mass/Vol] 10.8 g/dL 12.0-15.0 [facility] Blood lymphocytes/100 leukoc ytesOrdered By: Winston Gill on 07-18-2023 Lymphocytes/100 WBC (Bld) 13.1 % 19-41 [facility] Blood monocytes/100 leukocyt esOrdered By: Winston Gill on 07-18-2023 Monocytes/100 WBC (Bld) 8.0 % 0-10 [facility] Blood platelet mean volumeOr dered By: Winston Gill on 07-18-2023 Platelet mean volume (Bld) [Entitic vol] 10.0 fL 6.2-12.0 [facility] Culture, urineOrdered By: Devyn Rea on 07-18-2023 Bacteria identified Cx Nom (U) Escherichia coli [facility] Bacteria identified Cx Nom (U) Klebsiella pneumoniae sp pneum [facility] Determination of erythrocyte mean corpuscular volume (MCV)Ordered By: Winston Gill on 07-18-2023 MCV (RBC) [Entitic vol] 87.0 fL 81-99 [facility] Hematocrit Auto (Bld) [Volum e fraction]Ordered By: Winston Gill on 07-18-2023 Hematocrit (Bld) [Volume fraction] 33.5 % 37-47 [facility] Ketones Test strip Ql (U)Ord ered By: Winston Gill on 07-18-2023 Ketones Ql (U) 50 mg/dl Negative [facility] Laboratory - Chemistry and C hemistry - challengeOrdered By: Winston Gill on 07-18-2023 ALP [Catalytic activity/Vol] 93 U/L 45-117 [facility] ALT [Catalytic activity/Vol] 13 U/L 13-56 [facility] CO2 [Moles/Vol] 27.0 mmol/L 21.0-32.0 [facility] Globulin (S) [Mass/Vol] 4.8 g/dL 2.2-4.2 [facility] Urea nitrogen/Creatinine [Mass ratio] 15.6 mg/mg 10-20 [facility] Laboratory - Hematology and Cell countsOrdered By: Winston Gill on 07-18-2023 Erythrocyte distribution width (RBC) [Entitic vol] 52.4 fL 35.1-43.9 [facility] Erythrocyte distribution width (RBC) [Ratio] 16.4 % 11.6-14.6 [facility] Immature granulocytes/100 WBC (Bld) 1.300 % 0.0-0.9 [facility] Comment on above: IG% - Immature Granu locytes (promyelocytes, myelocytes and metamyelocytes) > 1% indicates that a LEFT SHIFT is Present. MCH (RBC) [Entitic mass] 28.1 pg 27.0-32.0 [facility] Nucleated RBC/100 WBC (Bld) [Ratio] 0 % 0-5 [facility] MCHC Auto (RBC) [Mass/Vol]Or dered By: Winston Gill on 07-18-2023 MCHC (RBC) [Mass/Vol] 32.2 g/dL 32-36 [facility] Mucus LM Ql (Urine sed)Order ed By: Winston Gill on 07-18-2023 Mucus Ql (Urine sed) 0 SEEN /hpf [facility] Nitrite Test strip Ql (U)Ord ered By: Winston Gill on 07-18-2023 Nitrite Ql (U) Negative Negative [facility] No Panel InformationOrdered By: Winston Gill on 07-18-2023 Estimated Creatinine Clearance Calc 45.46 ml/min [facility] Estimated GFR (MDRD) Amer 85 mL/min >60 [facility] Comment on above: GFR Calc Estimated GFR (MDRD) Non-Af Amer 70 mL/min >60 [facility] Comment on above: Non- GFR Calc Platelets bldOrdered By: Tre Gill on 07-18-2023 Platelets (Bld) [#/Vol] 370 10*3/uL 150-450 [facility] Protein Test strip Ql (U)Ord ered By: Winston Gill on 07-18-2023 Protein Ql (U) 100 mg/dl Negative [facility] Serum or plasma albumin melanie urement (mass/volume)Ordered By: Winston Gill on 07-18-2023 Albumin [Mass/Vol] 2.6 g/dL 3.2-5.0 [facility] Serum or plasma albumin/glob ulin mass ratioOrdered By: Winston Gill on 07-18-2023 Albumin/Globulin [Mass ratio] 0.5 {ratio} 0.9-2.4 [facility] Serum or plasma calcium melanie urement (mass/volume)Ordered By: Winston Gill on 07-18-2023 Calcium [Mass/Vol] 10.3 mg/dL 8.5-10.1 [facility] Serum or plasma creatinine m easurement (mass/volume)Ordered By: Winston Gill on 07-18-2023 Creatinine [Mass/Vol] 0.83 mg/dL 0.55-1.02 [facility] Comment on above: The validity of the calculated GFR & GFRAA in patients over 70 years has not been determined. Clinical correlation is essential. Serum or plasma urea nitroge n measurement (mass/volume)Ordered By: Winston Gill on 07-18-2023 Urea nitrogen [Mass/Vol] 13 mg/dL 7-18 [facility] Squamous epithelial cells de tection in urine sediment by light microscopyOrdered By: Winston Gill on 07-18-2023 Epithelial cells.squamous LM Ql (Urine sed) 5-10 SEEN /hpf 5-10 [facility] Thin prep Papanicolaou smear with manual screeningOrdered By: Winston Gill on 07-18-2023 Thin prep Papanicolaou smear with manual screening 26 U/L 15-37 [facility] Thin prep Papanicolaou smear with manual screening 9 5-15 [facility] Urine blood detectionOrdered By: Winston Gill on 07-18-2023 RBC Ql (U) 50 /ul Negative [facility] RBC Ql (U) 0-5 SEEN /hpf 0-5 [facility] Urine clarityOrdered By: Tre Gill on 07-18-2023 Clarity (U) Cloudy Clear [facility] Urine color determinationOrd ered By: Winston Gill on 07-18-2023 Color (U) Yellow Yellow [facility] Urine glucose detectionOrder ed By: Winston Gill on 07-18-2023 Glucose Ql (U) 1000 mg/dl Normal [facility] Urine leukocyte esterase det ection by dipstickOrdered By: Winston Gill on 07-18-2023 Leukocyte esterase Test strip Ql (U) 500 /ul Negative [facility] Urine pHOrdered By: Winston castillo on 07-18-2023 pH (U) 5.0 [pH] 5.0 - 8.0 [facility] Urine sediment bacteria coun t by microscopy (number/high power field)Ordered By: Winston Gill on 07-18-2023 Bacteria LM.HPF (Urine sed) [#/Area] 3 /[HPF] None Seen [facility] Urine sediment leukocyte lisandro t count by microscopy (number/low power field)Ordered By: Winston Gill on 07-18-2023 WBC casts LM.LPF (Urine sed) [#/Area] 0-5 SEEN /lpf None Seen [facility] Urine specific gravity measu rementOrdered By: Winston Gill on 07-18-2023 Specific gravity (U) [Rel density] 1.020 1.002-1.030 [facility] Urobilinogen Auto test strip Ql (U)Ordered By: Winston Gill on 07-18-2023 Urobilinogen Ql (U) 1 mg/dl Normal [facility] No Panel Informationon 07-15 POC SARS CoV-2 Antigen Negative [facility] Amorphous sediment detection in urine sediment by light microscopyOrdered By: Cheryl Mendez on 06-01-2023 Amorphous sediment LM Ql (Urine sed) 1+ URATE [facility] Basophil percentageOrdered B y: Cheryl Mendez on 06-01-2023 Basophil percentage 5-10 SEEN /hpf 0-5 [facility] Bilirubin Test strip Ql (U)O rdered By: Cheryl Mendez on 06-01-2023 Bilirubin Ql (U) Negative Negative [facility] Ketones Test strip Ql (U)Ord ered By: Cheryl Mendez on 06-01-2023 Ketones Ql (U) Negative Negative [facility] Mucus LM Ql (Urine sed)Order ed By: Cheryl Mendez on 06-01-2023 Mucus Ql (Urine sed) 0 SEEN /hpf [facility] Nitrite Test strip Ql (U)Ord ered By: Cheryl Mendez on 06-01-2023 Nitrite Ql (U) Negative Negative [facility] No Panel InformationOrdered By: Cheryl Mendez on 06-01-2023 Urine Microalbumin/Creatinine Ratio 173.1 mg/g CRE <30 [facility] Protein Test strip Ql (U)Ord ered By: Cheryl Mendez on 06-01-2023 Protein Ql (U) 15 mg/dl Negative [facility] Squamous epithelial cells de tection in urine sediment by light microscopyOrdered By: Cheryl Mendez on 06-01-2023 Epithelial cells.squamous LM Ql (Urine sed) 0-5 SEEN /hpf 5-10 [facility] Thin prep Papanicolaou smear with manual screeningOrdered By: Cheryl Mendez on 06-01-2023 Thin prep Papanicolaou smear with manual screening 98.3 mg/L NO RANGE EST. [facility] Urine blood detectionOrdered By: Cheryl Mendez on 06-01-2023 RBC Ql (U) 25 /ul Negative [facility] RBC Ql (U) 0-5 SEEN /hpf 0-5 [facility] Urine clarityOrdered By: Dyana Mendez on 06-01-2023 Clarity (U) Cloudy Clear [facility] Urine color determinationOrd ered By: Cheryl Mendez on 06-01-2023 Color (U) Yellow Yellow [facility] Urine creatinine measurement (mass/volume)Ordered By: Cheryl Mendez on 06-01-2023 Creatinine (U) [Mass/Vol] 56.80 mg/dL NO RANGE EST. [facility] Urine glucose detectionOrder ed By: Cheryl Mendez on 06-01-2023 Glucose Ql (U) 1000 mg/dl Normal [facility] Urine leukocyte esterase det ection by dipstickOrdered By: Cheryl Mendez on 06-01-2023 Leukocyte esterase Test strip Ql (U) 100 /ul Negative [facility] Urine pHOrdered By: Nikki Mendez on 06-01-2023 pH (U) 5.0 [pH] 5.0 - 8.0 [facility] Urine sediment bacteria coun t by microscopy (number/high power field)Ordered By: Cheryl Mendez on 06-01-2023 Bacteria LM.HPF (Urine sed) [#/Area] 3 /[HPF] None Seen [facility] Urine specific gravity measu rementOrdered By: Cheryl Mendez on 06-01-2023 Specific gravity (U) [Rel density] 1.015 1.002-1.030 [facility] Urobilinogen Auto test strip Ql (U)Ordered By: Cheryl Mendez on 06-01-2023 Urobilinogen Ql (U) Normal mg/dl Normal [facility] Basophil percentageOrdered B y: Cheryl Mendez on 05-27-2023 Basophil percentage 2.7 mg/dL 2.5-4.9 [facility] Chloride [Moles/Vol] 102 mmol/L 98-107 [facility] Glucose [Mass/Vol] 220 mg/dL 74-106 [facility] Comment on above: Glucose result great er than or equal to 200 mg/dLsuggests DIABETES MELLITUS per A.D.A. criteria. Potassium [Moles/Vol] 3.9 mmol/L 3.5-5.1 [facility] Sodium [Moles/Vol] 137 mmol/L 136-145 [facility] Laboratory - Chemistry and C hemistry - challengeOrdered By: Cheryl Mendez on 05-27-2023 CO2 [Moles/Vol] 28.0 mmol/L 21.0-32.0 [facility] Urea nitrogen/Creatinine [Mass ratio] 10.0 mg/mg 10- [facility] No Panel InformationOrdered By: Cheryl Mendez on 05-27-2023 Estimated GFR (MDRD) Amer 89 mL/min >60 [facility] Comment on above: GFR Calc Estimated GFR (MDRD) Non-Af Amer 73 mL/min >60 [facility] Comment on above: Non- GFR Calc Parathyroid Hormone (Intact) 164.3 pg/mL 18.4-80.1 [facility] Vitamin D 25-Hydroxy 45.4 ng/mL [facility] Comment on above: Vitamin D 25(OH) Sta tus Range Deficiency <20 ng/mL (50nmol/L) Insufficiency 20 - 30 ng/mL (50 - 75 nmol/L) Sufficiency 30 - 100 ng/mL (75 - 250 nmol/L) Toxicity >100 ng/mL (>250 nmol/L) Serum or plasma albumin melanie urement (mass/volume)Ordered By: Cheryl Mendez on 05-27-2023 Albumin [Mass/Vol] 2.9 g/dL 3.2-5.0 [facility] Serum or plasma calcium melanie urement (mass/volume)Ordered By: Cheryl Mendez on 05-27-2023 Calcium [Mass/Vol] 10.7 mg/dL 8.5-10.1 [facility] Serum or plasma creatinine m easurement (mass/volume)Ordered By: Cheryl Mendez on 05-27-2023 Creatinine [Mass/Vol] 0.80 mg/dL 0.55-1.02 [facility] Comment on above: The validity of the calculated GFR & GFRAA in patients over 70 years has not been determined. Clinical correlation is essential. Serum or plasma urea nitroge n measurement (mass/volume)Ordered By: Cheryl Mendez on 05-27-2023 Urea nitrogen [Mass/Vol] 8 mg/dL 7-18 [facility] Culture, urineOrdered By: Allan Anguiano on 03-24-2023 Bacteria identified Cx Nom (U) Klebsiella pneumoniae sp pneum [facility] Bacteria identified Cx Nom (U) Klebsiella pneumoniae sp pneum [facility] Absolute lymphocyte countOrd ered By: Dr. Smiley on 01-28-2023 Lymphocytes Auto (Unsp spec) [#/Vol] 3.27 10*3/uL 0.83-4.51 [facility] Absolute lymphocyte countOrd ered By: Dr. Lockwood on 01-28-2023 Lymphocytes Auto (Unsp spec) [#/Vol] 2.27 10*3/uL 0.83-4.51 [facility] Basophil percentageOrdered B y: Dr. Smiley on 01-28-2023 Basophils/100 WBC (Bld) 0.5 % 0-1 [facility] Bilirubin [Mass/Vol] 0.30 mg/dL 0.20-1.00 [facility] Comment on above: For patients on eltr ombopag therapy, use of Dimension [place] TBIL is not recommended. Chloride [Moles/Vol] 99 mmol/L 98-107 [facility] Cholesterol [Mass/Vol] 145 mg/dL <200 [facility] Comment on above: <200 mg/dL Desirable 200-240 mg/dL Borderline >240 mg/dL High Risk Eosinophils/100 WBC (Bld) 2.3 % 0-5 [facility] Glucose [Mass/Vol] 182 mg/dL 74-106 [facility] Comment on above: Fasting Glucose resu lt greater than or equal to 126 mg/dL suggests DIABETES MELLITUS per A.D.A. criteria. Neutrophils (Bld) [#/Vol] 3.9 10*3/uL 2.0-7.7 [facility] Neutrophils/100 WBC (Bld) 50.0 % 47-70 [facility] Potassium [Moles/Vol] 3.6 mmol/L 3.5-5.1 [facility] Protein [Mass/Vol] 7.9 g/dL 6.4-8.2 [facility] Sodium [Moles/Vol] 134 mmol/L 136-145 [facility] Triglyceride [Mass/Vol] 119 mg/dL <199 [facility] Comment on above: The drugs N-Acetylcy steine and Metamizole may falsely depress this assay.Serum Triglycerides Reference Interval Normal <150 mg/dL Borderline high 150 - 199 mg/dL High 200 - 499 mg/dL Very High > or = 500 mg/dL WBC (Bld) [#/Vol] 7.7 10*3/uL 4.4-11.0 [facility] Basophil percentageOrdered B y: Dr. Lockwood on 01-28-2023 Basophils/100 WBC (Bld) 0.8 % 0-1 [facility] Chloride [Moles/Vol] 102 mmol/L 98-107 [facility] Eosinophils/100 WBC (Bld) 2.6 % 0-5 [facility] Glucose [Mass/Vol] 137 mg/dL 74-106 [facility] Comment on above: Fasting Glucose resu lt greater than or equal to 126 mg/dL suggests DIABETES MELLITUS per A.D.A. criteria. Neutrophils (Bld) [#/Vol] 3.8 10*3/uL 2.0-7.7 [facility] Neutrophils/100 WBC (Bld) 56.6 % 47-70 [facility] Potassium [Moles/Vol] 3.8 mmol/L 3.5-5.1 [facility] Protein [Mass/Vol] 7.4 g/dL 6.4-8.2 [facility] Sodium [Moles/Vol] 136 mmol/L 136-145 [facility] WBC (Bld) [#/Vol] 6.6 10*3/uL 4.4-11.0 [facility] Blood erythrocytes count (nu mber/volume)Ordered By: Dr. Smiley on 01-28-2023 RBC (Bld) [#/Vol] 4.10 10*6/uL 4.2-5.4 [facility] Blood erythrocytes count (nu mber/volume)Ordered By: Dr. Lockwood on 01-28-2023 RBC (Bld) [#/Vol] 3.83 10*6/uL 4.2-5.4 [facility] Blood hemoglobin measurement (mass/volume)Ordered By: Dr. Smiley on 01-28-2023 Hemoglobin (Bld) [Mass/Vol] 11.5 g/dL 12.0-15.0 [facility] Blood hemoglobin measurement (mass/volume)Ordered By: Dr. Lockwood on 01-28-2023 Hemoglobin (Bld) [Mass/Vol] 11.1 g/dL 12.0-15.0 [facility] Blood lymphocytes/100 leukoc ytesOrdered By: Dr. Smiley on 01-28-2023 Lymphocytes/100 WBC (Bld) 42.3 % 19-41 [facility] Blood lymphocytes/100 leukoc ytesOrdered By: Dr. Lockwood on 01-28-2023 Lymphocytes/100 WBC (Bld) 34.2 % 19-41 [facility] Blood monocytes/100 leukocyt esOrdered By: Dr. Smiley on 01-28-2023 Monocytes/100 WBC (Bld) 4.8 % 0-10 [facility] Blood monocytes/100 leukocyt esOrdered By: Dr. Lockwood on 01-28-2023 Monocytes/100 WBC (Bld) 5.6 % 0-10 [facility] Blood platelet mean volumeOr dered By: Dr. Smiley on 01-28-2023 Platelet mean volume (Bld) [Entitic vol] 9.8 fL 6.2-12.0 [facility] Blood platelet mean volumeOr dered By: Dr. Lockwood on 01-28-2023 Platelet mean volume (Bld) [Entitic vol] 9.3 fL 6.2-12.0 [facility] Determination of erythrocyte mean corpuscular volume (MCV)Ordered By: Dr. Smiley on 01-28-2023 MCV (RBC) [Entitic vol] 90.7 fL 81-99 [facility] Determination of erythrocyte mean corpuscular volume (MCV)Ordered By: Dr. Lockwood on 01-28-2023 MCV (RBC) [Entitic vol] 87.7 fL 81-99 [facility] Hematocrit Auto (Bld) [Volum e fraction]Ordered By: Dr. Smiley on 01-28-2023 Hematocrit (Bld) [Volume fraction] 37.2 % 37-47 [facility] Hematocrit Auto (Bld) [Volum e fraction]Ordered By: Dr. Lockwood on 01-28-2023 Hematocrit (Bld) [Volume fraction] 33.6 % 37-47 [facility] Laboratory - Chemistry and C hemistry - challengeOrdered By: Dr. Smiley on 01-28-2023 ALP [Catalytic activity/Vol] 153 U/L 45-117 [facility] ALT [Catalytic activity/Vol] 20 U/L 13-56 [facility] CO2 [Moles/Vol] 25.0 mmol/L 21.0-32.0 [facility] Globulin (S) [Mass/Vol] 4.9 g/dL 2.2-4.2 [facility] Urea nitrogen/Creatinine [Mass ratio] 10.7 mg/mg 10 [facility] Laboratory - Chemistry and C hemistry - challengeOrdered By: Dr. Lockwood on 01-28-2023 ALP [Catalytic activity/Vol] 140 U/L 45-117 [facility] CO2 [Moles/Vol] 27.0 mmol/L 21.0-32.0 [facility] Free T4 [Mass/Vol] 1.11 ng/dL 0.76-1.46 [facility] Globulin (S) [Mass/Vol] 4.5 g/dL 2.2-4.2 [facility] Urea nitrogen/Creatinine [Mass ratio] 11.5 mg/mg 06-19 [facility] Laboratory - Hematology and Cell countsOrdered By: Dr. Smiley on 01-28-2023 Erythrocyte distribution width (RBC) [Entitic vol] 49.7 fL 35.1-43.9 [facility] Erythrocyte distribution width (RBC) [Ratio] 14.9 % 11.6-14.6 [facility] Immature granulocytes/100 WBC (Bld) 0.100 % 0.0-0.9 [facility] Comment on above: IG% - Immature Granu locytes (promyelocytes, myelocytes and metamyelocytes) > 1% indicates that a LEFT SHIFT is Present. MCH (RBC) [Entitic mass] 28.0 pg 27.0-32.0 [facility] Nucleated RBC/100 WBC (Bld) [Ratio] 0 % 0-5 [facility] Laboratory - Hematology and Cell countsOrdered By: Dr. Lockwood on 01-28-2023 Erythrocyte distribution width (RBC) [Entitic vol] 47.3 fL 35.1-43.9 [facility] Erythrocyte distribution width (RBC) [Ratio] 14.8 % 11.6-14.6 [facility] Immature granulocytes/100 WBC (Bld) 0.200 % 0.0-0.9 [facility] Comment on above: IG% - Immature Granu locytes (promyelocytes, myelocytes and metamyelocytes) > 1% indicates that a LEFT SHIFT is Present. MCH (RBC) [Entitic mass] 29.0 pg 27.0-32.0 [facility] MCHC Auto (RBC) [Mass/Vol]Or dered By: Dr. Smiley on 01-28-2023 MCHC (RBC) [Mass/Vol] 30.9 g/dL 32-36 [facility] MCHC Auto (RBC) [Mass/Vol]Or dered By: Dr. Lockwood on 01-28-2023 MCHC (RBC) [Mass/Vol] 33.0 g/dL 32-36 [facility] Comment on above: Delta: 30.9 on 01/280 No Panel InformationOrdered By: Dr. Lockwood on 01-28-2023 Estimated Creatinine Clearance Calc 37.74 ml/min [facility] Estimated GFR (MDRD) Amer 91 mL/min >60 [facility] Comment on above: GFR Calc Estimated GFR (MDRD) Non-Af Amer 75 mL/min >60 [facility] Comment on above: Non- GFR Calc Free Triiodothyronine (T3) pg/dL 2.9 pg/mL 2.18-3.98 [facility] No Panel InformationOrdered By: Dr. Smiley on 05-31-2023 Estimated GFR (MDRD) Amer 84 mL/min >60 [facility] Comment on above: GFR Calc Estimated GFR (MDRD) Non-Af Amer 70 mL/min >60 [facility] Comment on above: Non- GFR Calc Parathyroid Hormone (Intact) 112.9 pg/mL 18.4-80.1 [facility] Thyroid Stimulating Hormone (TSH) 0.02 uIU/mL 0.358-3.74 [facility] Vitamin D 25-Hydroxy 66.1 ng/mL [facility] Comment on above: Vitamin D 25(OH) Sta tus Range Deficiency <20 ng/mL (50nmol/L) Insufficiency 20 - 30 ng/mL (50 - 75 nmol/L) Sufficiency 30 - 100 ng/mL (75 - 250 nmol/L) Toxicity >100 ng/mL (>250 nmol/L) Platelets bldOrdered By: Dr. Smiley on 01-28-2023 Platelets (Bld) [#/Vol] 349 10*3/uL 150-450 [facility] Platelets bldOrdered By: Dr. Lockwood on 01-28-2023 Platelets (Bld) [#/Vol] 285 10*3/uL 150-450 [facility] Serum or plasma albumin melanie urement (mass/volume)Ordered By: Dr. Smiley on 01-28-2023 Albumin [Mass/Vol] 3.0 g/dL 3.2-5.0 [facility] Serum or plasma albumin melanie urement (mass/volume)Ordered By: Dr. Lockwood on 01-28-2023 Albumin [Mass/Vol] 2.9 g/dL 3.2-5.0 [facility] Serum or plasma albumin/glob ulin mass ratioOrdered By: Dr. Smiley on 01-28-2023 Albumin/Globulin [Mass ratio] 0.6 {ratio} 0.9-2.4 [facility] Serum or plasma calcium melanie urement (mass/volume)Ordered By: Dr. Smiley on 01-28-2023 Calcium [Mass/Vol] 11.5 mg/dL 8.5-10.1 [facility] Serum or plasma calcium melanie urement (mass/volume)Ordered By: Dr. Lockwood on 01-28-2023 Calcium [Mass/Vol] 11.4 mg/dL 8.5-10.1 [facility] Serum or plasma cholesterol in HDL measurement (mass/volume)Ordered By: Dr. Smiley on 01-28-2023 Cholesterol in HDL [Mass/Vol] 46 mg/dL >40 [facility] Comment on above: The drugs N-Acetylcy steine and Metamizole may falsely depress this assay. Reference Range HDL <40 mg/dL Low HDL Cholesterol HDL >or= 60 mg/dL High HDL Cholesterol Serum or plasma cholesterol in VLDL measurement (mass/volume)Ordered By: Dr. Smiley on 01-28-2023 Cholesterol in VLDL [Mass/Vol] 24 mg/dL 5-40 [facility] Serum or plasma creatinine m easurement (mass/volume)Ordered By: Dr. Smiley on 01-28-2023 Creatinine [Mass/Vol] 0.84 mg/dL 0.55-1.02 [facility] Comment on above: The validity of the calculated GFR & GFRAA in patients over 70 years has not been determined. Clinical correlation is essential. Serum or plasma creatinine m easurement (mass/volume)Ordered By: Dr. Lockwood on 01-28-2023 Creatinine [Mass/Vol] 0.78 mg/dL 0.55-1.02 [facility] Comment on above: The validity of the calculated GFR & GFRAA in patients over 70 years has not been determined. Clinical correlation is essential. Serum or plasma low density lipoprotein (LDL) cholesterol measurement (mass/volume)Ordered By: Dr. Smiley on 01-28-2023 Cholesterol in LDL [Mass/Vol] 75 mg/dL 0-130 [facility] Serum or plasma urea nitroge n measurement (mass/volume)Ordered By: Dr. Smiley on 01-28-2023 Urea nitrogen [Mass/Vol] 9 mg/dL 7-18 [facility] Thin prep Papanicolaou smear with manual screeningOrdered By: Dr. Smiley on 01-28-2023 Thin prep Papanicolaou smear with manual screening 22 U/L 15-37 [facility] Thin prep Papanicolaou smear with manual screening 10 5-15 [facility] Thin prep Papanicolaou smear with manual screeningOrdered By: Dr. Lockwood on 01-28-2023 Thin prep Papanicolaou smear with manual screening 18 U/L 15-37 [facility] Thin prep Papanicolaou smear with manual screening 7 5-15 [facility] Whole blood hemoglobin A1c/t otal hemoglobin ratio (mass fraction)Ordered By: Dr. Smiley on 01-28-2023 HbA1c (Bld) [Mass fraction] 7.5 % 3.8-5.6 [facility] Comment on above: Normal < 5.7 % Predi abetic 5.7 - 6.4 % Diabetic >or= 6.5 % Please note range changes. Basophil percentageOrdered B y: Dr. Smiley on 12-09-2022 Bilirubin [Mass/Vol] 0.20 mg/dL 0.20-1.00 [facility] Comment on above: For patients on eltr ombopag therapy, use of Dimension [place] TBIL is not recommended. Chloride [Moles/Vol] 101 mmol/L 98-107 [facility] Glucose [Mass/Vol] 168 mg/dL 74-106 [facility] Comment on above: Fasting Glucose resu lt greater than or equal to 126 mg/dL suggests DIABETES MELLITUS per A.D.A. criteria. Potassium [Moles/Vol] 3.7 mmol/L 3.5-5.1 [facility] Protein [Mass/Vol] 8.7 g/dL 6.4-8.2 [facility] Sodium [Moles/Vol] 133 mmol/L 136-145 [facility] Laboratory - Chemistry and C hemistry - challengeOrdered By: Dr. Smiley on 12-09-2022 ALP [Catalytic activity/Vol] 164 U/L 45-117 [facility] ALT [Catalytic activity/Vol] 27 U/L 13-56 [facility] CO2 [Moles/Vol] 25.0 mmol/L 21.0-32.0 [facility] Globulin (S) [Mass/Vol] 5.4 g/dL 2.2-4.2 [facility] Urea nitrogen/Creatinine [Mass ratio] 10.7 mg/mg 10-20 [facility] No Panel InformationOrdered By: Dr. Smiley on 12-09-2022 Estimated GFR (MDRD) Amer 67 mL/min >60 [facility] Comment on above: GFR Calc Estimated GFR (MDRD) Non-Af Amer 55 mL/min >60 [facility] Comment on above: Non- GFR Calc Parathyroid Hormone (Intact) 175.0 pg/mL 18.4-80.1 [facility] Vitamin D 25-Hydroxy 92.6 ng/mL [facility] Comment on above: Vitamin D 25(OH) Sta tus Range Deficiency <20 ng/mL (50nmol/L) Insufficiency 20 - 30 ng/mL (50 - 75 nmol/L) Sufficiency 30 - 100 ng/mL (75 - 250 nmol/L) Toxicity >100 ng/mL (>250 nmol/L) Serum or plasma albumin melanie urement (mass/volume)Ordered By: Dr. Smiley on 12-09-2022 Albumin [Mass/Vol] 3.3 g/dL 3.2-5.0 [facility] Serum or plasma albumin/glob ulin mass ratioOrdered By: Dr. Smiley on 12-09-2022 Albumin/Globulin [Mass ratio] 0.6 {ratio} 0.9-2.4 [facility] Serum or plasma calcium melanie urement (mass/volume)Ordered By: Dr. Smiley on 12-09-2022 Calcium [Mass/Vol] 11.4 mg/dL 8.5-10.1 [facility] Serum or plasma creatinine m easurement (mass/volume)Ordered By: Dr. Smiley on 12-09-2022 Creatinine [Mass/Vol] 1.03 mg/dL 0.55-1.02 [facility] Comment on above: The validity of the calculated GFR & GFRAA in patients over 70 years has not been determined. Clinical correlation is essential. Serum or plasma urea nitroge n measurement (mass/volume)Ordered By: Dr. Smiley on 12-09-2022 Urea nitrogen [Mass/Vol] 11 mg/dL 7-18 [facility] Thin prep Papanicolaou smear with manual screeningOrdered By: Dr. Smiley on 12-09-2022 Thin prep Papanicolaou smear with manual screening 20 U/L 15-37 [facility] Thin prep Papanicolaou smear with manual screening 7 5-15 [facility] Whole blood hemoglobin A1c/t otal hemoglobin ratio (mass fraction)Ordered By: Dr. Smiley on 12-09-2022 HbA1c (Bld) [Mass fraction] 7.4 % 3.8-5.6 [facility] Comment on above: Normal < 5.7 % Predi abetic 5.7 - 6.4 % Diabetic >or= 6.5 % Please note range changes. Absolute lymphocyte counton 07-14-2022 Lymphocytes Auto (Unsp spec) [#/Vol] 2.79 10*3/uL 0.83-4.51 [facility] Work Phone: Basophil percentageon 2021 Basophil percentage 25-50 SEEN /hpf 0-5 [facility] Work Phone: Basophils/100 WBC (Bld) 0.5 % 0-1 [facility] Work Phone: Bilirubin [Mass/Vol] 0.30 mg/dL 0.20-1.00 [facility] Work Phone: Comment on above: For patients on eltr ombopag therapy, use of Dimension [place] TBIL is not recommended. Chloride [Moles/Vol] 102 mmol/L 98-107 [facility] Work Phone: Eosinophils/100 WBC (Bld) 3.2 % 0-5 [facility] Work Phone: Glucose [Mass/Vol] 143 mg/dL 74-106 [facility] Work Phone: Comment on above: Fasting Glucose resu lt greater than or equal to 126 mg/dL suggests DIABETES MELLITUS per A.D.A. criteria. Neutrophils (Bld) [#/Vol] 4.5 10*3/uL 2.0-7.7 [facility] Work Phone: Neutrophils/100 WBC (Bld) 54.7 % 47-70 [facility] Work Phone: Potassium [Moles/Vol] 4.9 mmol/L 3.5-5.1 [facility] Work Phone: Comment on above: Moderate Hemolysis, Result may be falsely increased. Protein [Mass/Vol] 8.3 g/dL 6.4-8.2 [facility] Work Phone: Sodium [Moles/Vol] 136 mmol/L 136-145 [facility] Work Phone: WBC (Bld) [#/Vol] 8.1 10*3/uL 4.4-11.0 [facility] Work Phone: Bilirubin Test strip Ql (U)o n 07-14-2022 Bilirubin Ql (U) Negative Negative [facility] Work Phone: Blood erythrocytes count (nu mber/volume)on 07-14-2022 RBC (Bld) [#/Vol] 4.15 10*6/uL 4.2-5.4 [facility]: Blood hemoglobin measurement (mass/volume)on 07-14-2022 Hemoglobin (Bld) [Mass/Vol] 12.0 g/dL 12.0-15.0 [facility] Work Phone: Blood lymphocytes/100 leukoc yteson 07-14-2022 Lymphocytes/100 WBC (Bld) 34.4 % 19-41 [facility] Work Phone: Blood monocytes/100 leukocyt eson 07-14-2022 Monocytes/100 WBC (Bld) 6.8 % 0-10 [facility] Work Phone: Blood platelet mean volumeon 07-14-2022 Platelet mean volume (Bld) [Entitic vol] 10.2 fL 6.2-12.0 [facility] Work Phone: Determination of erythrocyte mean corpuscular volume (MCV)on 07-14-2022 MCV (RBC) [Entitic vol] 90.8 fL 81-99 [facility] Work Phone: Hematocrit Auto (Bld) [Volum e fraction]on 07-14-2022 Hematocrit (Bld) [Volume fraction] 37.7 % 37-47 [facility] Work Phone: Ketones Test strip Ql (U)on 07-14-2022 Ketones Ql (U) Negative Negative [facility] Work Phone: Laboratory - Chemistry and C hemistry - challengeon 07-14-2022 ALP [Catalytic activity/Vol] 131 U/L 45-117 [facility] Work Phone: ALT [Catalytic activity/Vol] 33 U/L 13-56 [facility] Work Phone: CO2 [Moles/Vol] 31.0 mmol/L 21.0-32.0 [facility] Work Phone: Globulin (S) [Mass/Vol] 5.0 g/dL 2.2-4.2 [facility] Work Phone: Urea nitrogen/Creatinine [Mass ratio] 14.7 mg/mg 10-20 [facility] Work Phone: Laboratory - Hematology and Cell countson 07-14-2022 Erythrocyte distribution width (RBC) [Entitic vol] 49.9 fL 35.1-43.9 [facility] Work Phone: Erythrocyte distribution width (RBC) [Ratio] 15.1 % 11.6-14.6 [facility] Work Phone: Immature granulocytes/100 WBC (Bld) 0.400 % 0.0-0.9 [facility] Work Phone: Comment on above: IG% - Immature Granu locytes (promyelocytes, myelocytes and metamyelocytes) > 1% indicates that a LEFT SHIFT is Present. MCH (RBC) [Entitic mass] 28.9 pg 27.0-32.0 [facility] Work Phone: Nucleated RBC/100 WBC (Bld) [Ratio] 0 % 0-5 [facility] Work Phone: MCHC Auto (RBC) [Mass/Vol]on 07-14-2022 MCHC (RBC) [Mass/Vol] 31.8 g/dL 32-36 [facility] Work Phone: Mucus LM Ql (Urine sed)on Mucus Ql (Urine sed) 0 SEEN /hpf [facility] Work Phone: Nitrite Test strip Ql (U)on 07-14-2022 Nitrite Ql (U) Negative Negative [facility] Work Phone: No Panel Informationon 07-14 Estimated Creatinine Clearance Calc 40.37 ml/min [facility] Work Phone: Estimated GFR (MDRD) Amer 73 mL/min >60 [facility] Work Phone: Comment on above: GFR Calc Estimated GFR (MDRD) Non-Af Amer 60 mL/min >60 [facility] Work Phone: Comment on above: Non- GFR Calc Platelets bldon 07-14-2022 Platelets (Bld) [#/Vol] 267 10*3/uL 150-450 [facility] Work Phone: Protein Test strip Ql (U)on 07-14-2022 Protein Ql (U) 30 mg/dl Negative [facility] Work Phone: Serum or plasma albumin melanie urement (mass/volume)on 07-14-2022 Albumin [Mass/Vol] 3.3 g/dL 3.2-5.0 [facility] Work Phone: Serum or plasma albumin/glob ulin mass ratioon 07-14-2022 Albumin/Globulin [Mass ratio] 0.7 {ratio} 0.9-2.4 [facility] Work Phone: Serum or plasma calcium melanie urement (mass/volume)on 07-14-2022 Calcium [Mass/Vol] 11.4 mg/dL 8.5-10.1 [facility] Work Phone: Serum or plasma creatinine m easurement (mass/volume)on 07-14-2022 Creatinine [Mass/Vol] 0.95 mg/dL 0.55-1.02 [facility] Work Phone: Comment on above: The validity of the calculated GFR & GFRAA in patients over 70 years has not been determined. Clinical correlation is essential. Serum or plasma urea nitroge n measurement (mass/volume)on 07-14-2022 Urea nitrogen [Mass/Vol] 14 mg/dL 7-18 [facility] Work Phone: Squamous epithelial cells de tection in urine sediment by light microscopyon 07-14-2022 Epithelial cells.squamous LM Ql (Urine sed) 0-5 SEEN /hpf 5-10 [facility] Work Phone: Thin prep Papanicolaou smear with manual screeningon 07-14-2022 Thin prep Papanicolaou smear with manual screening 44 U/L 15-37 [facility] Work Phone: Comment on above: Moderate Hemolysis, Result may be falsely increased. Thin prep Papanicolaou smear with manual screening 3 5-15 [facility] Work Phone: Urine blood detectionon 07-01 RBC Ql (U) 25 /ul Negative [facility] Work Phone: RBC Ql (U) 0 SEEN /hpf 0-5 [facility] Work Phone: Urine clarityon 07-14-2022 Clarity (U) Sl. Cloudy Clear [facility] Work Phone: Urine color determinationon 07-14-2022 Color (U) Yellow Yellow [facility] Work Phone: Urine glucose detectionon Glucose Ql (U) 1000 mg/dl Normal [facility] Work Phone: Urine leukocyte esterase det ection by dipstickon 07-14-2022 Leukocyte esterase Test strip Ql (U) 500 /ul Negative [facility] Work Phone: Urine pHon 07-14-2022 pH (U) 6.0 [pH] 5.0 - 8.0 [facility] Work Phone: Urine sediment bacteria coun t by microscopy (number/high power field)on 07-14-2022 Bacteria LM.HPF (Urine sed) [#/Area] 3 /[HPF] None Seen [facility] Work Phone: Urine specific gravity measu rementon 07-14-2022 Specific gravity (U) [Rel density] 1.015 1.002-1.030 [facility] Work Phone: Urobilinogen Auto test strip Ql (U)on 07-14-2022 Urobilinogen Ql (U) Normal mg/dl Normal [facility] Work Phone: CBC W Auto Differential pane l (Bld)on 05-07-2022 Basophils (Bld) [#/Vol] 0.05 10*3/uL Normal <0.11 [facility] Comment on above: Order Comment: Speci men Type: BLOOD SPECIMEN Ordering Facility: [facility] Address: [address] [place] [address] Performed By: #### 5 7021-8 #### [facility] CLIA [id number] [address] [place] [address] [place] Basophils/100 WBC (Bld) 0.7 % Normal [facility] Comment on above: Order Comment: Speci men Type: BLOOD SPECIMEN Ordering Facility: [facility] Address: [address] [place] [address] Performed By: #### 5 7021-8 #### [facility] CLIA [id number] [address] [place] [address] [place] Differential cell count method Nom (Bld) Auto Normal [facility] Comment on above: Order Comment: Speci men Type: BLOOD SPECIMEN Ordering Facility: [facility] Address: [address] [place] [address] Performed By: #### 5 7021-8 #### [facility] CLIA [id number] [address] [place] [address] [place] Eosinophils (Bld) [#/Vol] 0.32 10*3/uL Normal <0.46 [facility] Comment on above: Order Comment: Speci men Type: BLOOD SPECIMEN Ordering Facility: [facility] Address: [address] [place] [address] Performed By: #### 5 7021-8 #### [facility] CLIA [id number] [address] [place] [address] [place] Eosinophils/100 WBC (Bld) 4.7 % Normal [facility] Comment on above: Order Comment: Speci men Type: BLOOD SPECIMEN Ordering Facility: [facility] Address: [address] [place] [address] Performed By: #### 5 7021-8 #### [facility] CLIA [id number] [address] [place] [address] [place] Erythrocyte distribution width (RBC) [Ratio] 14.6 % Normal 11.5-15.0 [facility] Comment on above: Order Comment: Speci men Type: BLOOD SPECIMEN Ordering Facility: [facility] Address: [address] [place] [address] Performed By: #### 5 7021-8 #### [facility] CLIA [id number] [address] [place] [address] [place] Hematocrit (Bld) [Volume fraction] 37.2 % Normal 36.0-46.0 [facility] Comment on above: Order Comment: Speci men Type: BLOOD SPECIMEN Ordering Facility: [facility] Address: [address] [place] [address] Performed By: #### 5 7021-8 #### [facility] CLIA [id number] [address] [place] [address] [place] Hemoglobin (Bld) [Mass/Vol] 12.0 g/dL Normal 11.5-15.5 [facility] Comment on above: Order Comment: Speci men Type: BLOOD SPECIMEN Ordering Facility: [facility] Address: [address] [place] [address] Performed By: #### 5 7021-8 #### [facility] CLIA [id number] [address] [place] [address] [place] IMMATURE GRAN % 0.1 % Normal [facility] Comment on above: Order Comment: Speci men Type: BLOOD SPECIMEN Ordering Facility: [facility] Address: [address] [place] [address] Performed By: #### 5 7021-8 #### [facility] CLIA [id number] [address] [place] [address] [place] IMMATURE GRAN ABS <0.03 Normal <0.10 [facility] Comment on above: Order Comment: Speci men Type: BLOOD SPECIMEN Ordering Facility: [facility] Address: [address] [place] [address] Performed By: #### 5 7021-8 #### [facility] CLIA [id number] [address] [place] [address] [place] [facility] [place] Lymphocytes (Bld) [#/Vol] 2.03 10*3/uL Normal 1.00-4.00 [facility] Comment on above: Order Comment: Speci men Type: BLOOD SPECIMEN Ordering Facility: [facility] Address: [address] [place] [address] Performed By: #### 5 7021-8 #### [facility] CLIA [id number] [address] [place] [address] Lymphocytes/100 WBC (Bld) 29.7 % Normal [facility] Comment on above: Order Comment: Speci men Type: BLOOD SPECIMEN Ordering Facility: [facility] Address: [address] [place], [place] [address] Performed By: #### 5 7021-8 #### [facility] CLIA [id number] [address] [place] [address] [place] MCH (RBC) [Entitic mass] 28.5 pg Normal 26.0-34.0 [facility] Comment on above: Order Comment: Speci men Type: BLOOD SPECIMEN Ordering Facility: [facility] Address: [address] [place] [address] Performed By: #### 5 7021-8 #### [facility] CLIA [id number] [address] [place] [address] [place] MCHC (RBC) [Mass/Vol] 32.3 g/dL Normal 30.5-36.0 [facility] Comment on above: Order Comment: Speci men Type: BLOOD SPECIMEN Ordering Facility: [facility] Address: [address] [place] [address] Performed By: #### 5 7021-8 #### [facility] CLIA [id number] [address] [place] [address] [place] MCV (RBC) [Entitic vol] 88.4 fL Normal 80.0-100.[address] [facility] Comment on above: Order Comment: Speci men Type: BLOOD SPECIMEN Ordering Facility: [facility] Address: [address] [place] [address] Performed By: #### 5 7021-8 #### [facility] CLIA [id number] [address] [place] [address] [place] Monocytes (Bld) [#/Vol] 0.47 10*3/uL Normal <0.87 [facility] Comment on above: Order Comment: Speci men Type: BLOOD SPECIMEN Ordering Facility: [facility] Address: [address] [place] [address] Performed By: #### 5 7021-8 #### [facility] CLIA [id number] [address] [place] [address] [place] Monocytes/100 WBC (Bld) 6.9 % Normal [facility] Comment on above: Order Comment: Speci men Type: BLOOD SPECIMEN Ordering Facility: [facility] Address: [address] [place] [address] Performed By: #### 5 7021-8 #### [facility] CLIA [id number] [address] [place] [address] [place] Neutrophils (Bld) [#/Vol] 3.96 10*3/uL Normal 1.45-7.50 [facility] Comment on above: Order Comment: Speci men Type: BLOOD SPECIMEN Ordering Facility: [facility] Address: [address] [place] [address] Performed By: #### 5 7021-8 #### [facility] CLIA [id number] [address] [place] [address] [place] Neutrophils/100 WBC (Bld) 57.9 % Normal [facility] Comment on above: Order Comment: Speci men Type: BLOOD SPECIMEN Ordering Facility: [facility] Address: [address] [place] [address] Performed By: #### 5 7021-8 #### [facility] CLIA [id number] [address] [place] [address] [place] Nucleated RBC (Bld) [#/Vol] 10*3/uL Normal <0.01 [facility] Comment on above: Order Comment: Speci men Type: BLOOD SPECIMEN Ordering Facility: [facility] Address: [address] [place] [address] Performed By: #### 5 7021-8 #### [facility] CLIA [id number] [address] [place] [address] [place] Nucleated RBC/100 WBC (Bld) [Ratio] 0.0 /100 WBC Normal [facility] Comment on above: Order Comment: Speci men Type: BLOOD SPECIMEN Ordering Facility: [facility] Address: [address] [place], [place] [address] Performed By: #### 5 7021-8 #### [facility] CLIA [id number] [address] [place] [address] [place] Platelet mean volume (Bld) [Entitic vol] 10.0 fL Normal 9.0-12.7 [facility] Comment on above: Order Comment: Speci men Type: BLOOD SPECIMEN Ordering Facility: [facility] Address: [address] [place] [address] Performed By: #### 5 7021-8 #### [facility] CLIA [id number] [address] [place] [address] [place] Platelets (Bld) [#/Vol] 246 10*3/uL Normal 150-400 [facility] Comment on above: Order Comment: Speci men Type: BLOOD SPECIMEN Ordering Facility: [facility] Address: [address] [place] [address] Performed By: #### 5 7021-8 #### [facility] CLIA [id number] [address] [place] [address] [place] RBC (Bld) [#/Vol] 4.21 10*6/uL Normal 3.90-5.20 [facility] Comment on above: Order Comment: Speci men Type: BLOOD SPECIMEN Ordering Facility: [facility] Address: [address] [place] [address] Performed By: #### 5 7021-8 #### [facility] CLIA [id number] [address] [place] [address] [place] WBC (Bld) [#/Vol] 6.84 10*3/uL Normal 3.70-11.00 [facility] Comment on above: Order Comment: Speci men Type: BLOOD SPECIMEN Ordering Facility: [facility] Address: [address] [place] [address] Performed By: #### 5 7021-8 #### [facility] CLIA [id number] [address] [place] [address] OF [place] CNOVSPon 05-07-2022 CNOVSP Visit (SP) Office (HEMAWS) OLGA DONALDSON ([id number]) 1945 F Date Time Provider Department 05/07/22 1:30 PM LASHONDA IRAHETA During your visit today, we recorded the following information about you: Temperature Pulse Blood pressure Weight 97.2 degrees 66/minute 160/68 73.7 kg Height 1.581 m 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 APRN.CNP 05/07/2022 2:25 PM Signed Chief Complaint Patient [...] an every 2-week basis for 4 cycles ([id number]). Completed a year of trastuzumab 06/16/06. Referred back or anemia. Admitted to [facility] 12/02/2019 for chest pain with ambulation. Initial [...] 1.00 - 4.00 k/uL 2.70 2.30 2.03 [place]% % 7.0 6.6 6.9 Abs [place] <0.87 k/uL 0.49 0.47 0.47 Eosin% % 4.9 3.2 4.7 Abs Eosin <0.46 k/uL 0.34 0.23 0.32 Baso% % 0.7 0.6 0.7 Abs Baso <0.11 k/uL 0.05 0.04 0.05 Immature (more content not included)... Normal [facility] Ferritin [facility] 2021 Ferritin [Mass/Vol] 808.0 ng/mL High 14.7-205.1 [facility] Comment on above: Order Comment: Speci men Type: BLOOD SPECIMEN Ordering Facility: [facility] Address: [address] [place], [place] [address] Performed By: #### 5 0190-8, 2276-4 #### [facility] CLIA [id number] [address] [place] [address] Iron and Iron binding capaci ty panelon 05-07-2022 Iron [Mass/Vol] 38 ug/dL Low 41-186 [facility] Comment on above: Order Comment: Flip headley Type: BLOOD SPECIMEN Ordering Facility: [facility] Address: [address] [place] [address] Performed By: #### 5 0190-8, 2276-4 #### [facility] CLIA [id number] [address] [place] [address] Iron binding capacity [Mass/Vol] 240 ug/dL Normal 232-386 [facility] Comment on above: Order Comment: Speclety men Type: BLOOD SPECIMEN Ordering Facility: [facility] Address: [address] [place] [address] Performed By: #### 5 0190-8, 2276-4 #### [facility] CLIA [id number] [address] [place] [address] Iron/TIBC [Molar ratio] 15.8 % Normal 15.0-57.[address] [facility] Comment on above: Order Comment: Flip headley Type: BLOOD SPECIMEN Ordering Facility: [facility] Address: [address] [place] [address] Performed By: #### 5 0190-8, 2276-4 #### [facility] CLIA [id number] [address] [place] [address] [place] Justine 02-10-2022 [place] Telephone (HEMAWS) OLGA DONALDSON ([id number]) 1945 F Date Time Provider Department 02/10/22 JOSEPH ROLLE During your visit today, we recorded the following information about you: Joseph Rolle DO 02/10/2022 6:21 AM Signed Can let her know CBC and iron levels doing well. Follow up as scheduled. Joseph Rolle DO Stacie Telly BRADLEY 02/10/2022 8:34 AM Signed Pt called and [...] Date Reviewed: 05/07/2021 Reviewed by: 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 APRN.SHIPPING AND RECEIVING CLERK - Fully Assessed Reason for Visit: Results [...] MIST) 0.65 % nasal spray Use 1 [place] in the nose as needed. - diltiazem [...] by STACIE VARNER LPN on 02/10/22 Normal [facility] CBC W Auto Differential pane l (Bld)on 02-03-2022 Basophils (Bld) [#/Vol] 0.04 10*3/uL Normal <0.11 [facility] Comment on above: Order Comment: Speci men Type: BLOOD SPECIMEN Ordering Facility: [facility] Address: [address] [place] [address] Performed By: #### 5 7021-8 #### [facility] FOZIA [id number] [address] [place] [address] [place] Basophils/100 WBC (Bld) 0.6 % Normal [facility] Comment on above: Order Comment: Speci men Type: BLOOD SPECIMEN Ordering Facility: [facility] Address: [address] [place] [address] Performed By: #### 5 7021-8 #### [facility] CLIA [id number] [address] [place] [address] [place] Differential cell count method Nom (Bld) Auto Normal [facility] Comment on above: Order Comment: Speci men Type: BLOOD SPECIMEN Ordering Facility: [facility] Address: [address] [place] [address] Performed By: #### 5 7021-8 #### [facility] CLIA [id number] [address] [place] [address] [place] Eosinophils (Bld) [#/Vol] 0.23 10*3/uL Normal <0.46 [facility] Comment on above: Order Comment: Speci men Type: BLOOD SPECIMEN Ordering Facility: [facility] Address: [address] [place] [address] Performed By: #### 5 7021-8 #### [facility] CLIA [id number] [address] [place] [address] [place] Eosinophils/100 WBC (Bld) 3.2 % Normal [facility] Comment on above: Order Comment: Speci men Type: BLOOD SPECIMEN Ordering Facility: [facility] Address: [address] [place] [address] Performed By: #### 5 7021-8 #### [facility] CLIA [id number] [address] [place] [address] [place] Erythrocyte distribution width (RBC) [Ratio] 14.3 % Normal 11.5-15.0 [facility] Comment on above: Order Comment: Speci men Type: BLOOD SPECIMEN Ordering Facility: [facility] Address: [address] [place] [address] Performed By: #### 5 7021-8 #### [facility] CLIA [id number] [address] [place] [address] Hematocrit (Bld) [Volume fraction] 39.7 % Normal 36.0-46.0 [facility] Comment on above: Order Comment: Speci men Type: BLOOD SPECIMEN Ordering Facility: [facility] Address: [address] [place] [address] Performed By: #### 5 7021-8 #### [facility] [id number] [address] [place] [address] [place] Hemoglobin (Bld) [Mass/Vol] 12.8 g/dL Normal 11.5-15.5 [facility] Comment on above: Order Comment: Speci men Type: BLOOD SPECIMEN Ordering Facility: [facility] Address: [address] [place] [address] Performed By: #### 5 7021-8 #### [facility] [id number] [address] [place] [address] OF [facility] IMMATURE GRAN % 0.3 % Normal [facility] Comment on above: Order Comment: Speci men Type: BLOOD SPECIMEN Ordering Facility: [facility] Address: [address] [place] [address] Performed By: #### 5 7021-8 #### [facility] CLIA [id number] [address] [place] [address] [place] IMMATURE GRAN ABS <0.03 Normal <0.10 [facility] Comment on above: Order Comment: Speci men Type: BLOOD SPECIMEN Ordering Facility: [facility] Address: [address] [place] [address] Performed By: #### 5 7021-8 #### [facility] CLIA [id number] [address] [place] [address] [place] Lymphocytes (Bld) [#/Vol] 2.30 10*3/uL Normal 1.00-4.00 [facility] Comment on above: Order Comment: Speci men Type: BLOOD SPECIMEN Ordering Facility: [facility] Address: [address] [place] [address] Performed By: #### 5 7021-8 #### [facility] CLIA [id number] [address] [place] [address] [place] Lymphocytes/100 WBC (Bld) 32.1 % Normal [facility] Comment on above: Order Comment: Speci men Type: BLOOD SPECIMEN Ordering Facility: [facility] Address: [address] [place] [address] Performed By: #### 5 7021-8 #### [facility] CLIA [id number] [address] [place] [address] [place] MCH (RBC) [Entitic mass] 28.8 pg Normal 26.0-34.0 [facility] Comment on above: Order Comment: Speci men Type: BLOOD SPECIMEN Ordering Facility: [facility] Address: [address] [place] [address] Performed By: #### 5 7021-8 #### [facility] CLIA [id number] [address] [place] [address] [place] MCHC (RBC) [Mass/Vol] 32.2 g/dL Normal 30.5-36.0 [facility] Comment on above: Order Comment: Speci men Type: BLOOD SPECIMEN Ordering Facility: [facility] Address: [address] [place] [address] Performed By: #### 5 7021-8 #### [facility] CLIA [id number] [address] [place] [address] [place] MCV (RBC) [Entitic vol] 89.4 fL Normal 80.0-100.[address] [facility] Comment on above: Order Comment: Speci men Type: BLOOD SPECIMEN Ordering Facility: [facility] Address: [address] [place], [place] [address] Performed By: #### 5 7021-8 #### [facility] CLIA [id number] [address] [place] [address] [place] Monocytes (Bld) [#/Vol] 0.47 10*3/uL Normal <0.87 [facility] Comment on above: Order Comment: Speci men Type: BLOOD SPECIMEN Ordering Facility: [facility] Address: [address] [place], [place] [address] Performed By: #### 5 7021-8 #### [facility] CLIA [id number] [address] [place] [address] [place] Monocytes/100 WBC (Bld) 6.6 % Normal [facility] Comment on above: Order Comment: Speci men Type: BLOOD SPECIMEN Ordering Facility: [facility] Address: [address] [place], [place] [address] Performed By: #### 5 7021-8 #### [facility] CLIA [id number] [address] [place] [address] [place] Neutrophils (Bld) [#/Vol] 4.11 10*3/uL Normal 1.45-7.50 [facility] Comment on above: Order Comment: Speci men Type: BLOOD SPECIMEN Ordering Facility: [facility] Address: [address] [place], [place] [address] Performed By: #### 5 7021-8 #### [facility] CLIA [id number] [address] [place] [address] [place] Neutrophils/100 WBC (Bld) 57.2 % Normal [facility] Comment on above: Order Comment: Speci men Type: BLOOD SPECIMEN Ordering Facility: [facility] Address: [address] [place], [place] [address] Performed By: #### 5 7021-8 #### [facility] CLIA [id number] [address] [place] [address] [place] Nucleated RBC (Bld) [#/Vol] 10*3/uL Normal <0.01 [facility] Comment on above: Order Comment: Speci men Type: BLOOD SPECIMEN Ordering Facility: [facility] Address: [address] [place], [place] [address] Performed By: #### 5 7021-8 #### [facility] CLIA [id number] [address] [place] [address] [place] Nucleated RBC/100 WBC (Bld) [Ratio] 0.0 /100 WBC Normal [facility] Comment on above: Order Comment: Speci men Type: BLOOD SPECIMEN Ordering Facility: [facility] Address: [address] [place], [place] [address] Performed By: #### 5 7021-8 #### [facility] CLIA [id number] [address] [place] [address] [place] Platelet mean volume (Bld) [Entitic vol] 10.3 fL Normal 9.0-12.7 [facility] Comment on above: Order Comment: Speci men Type: BLOOD SPECIMEN Ordering Facility: [facility] Address: [address] [place], [place] [address] Performed By: #### 5 7021-8 #### [facility] CLIA [id number] [address] [place] [address] [place] Platelets (Bld) [#/Vol] 265 10*3/uL Normal 150-400 [facility] Comment on above: Order Comment: Speci men Type: BLOOD SPECIMEN Ordering Facility: [facility] Address: [address] [place], [place] [address] Performed By: #### 5 7021-8 #### [facility] CLIA [id number] [address] [place] [address] [place] RBC (Bld) [#/Vol] 4.44 10*6/uL Normal 3.90-5.20 [facility] Comment on above: Order Comment: Speci men Type: BLOOD SPECIMEN Ordering Facility: [facility] Address: [address] [place] [address] Performed By: #### 5 7021-8 #### [facility] CLIA [id number] [address] [place] [address] [place] WBC (Bld) [#/Vol] 7.17 10*3/uL Normal 3.70-11.00 [facility] Comment on above: Order Comment: Speci men Type: BLOOD SPECIMEN Ordering Facility: [facility] Address: [address] [place] [address] Performed By: #### 5 7021-8 #### [facility] CLIA [id number] [address] [place] [address] [place] FERRITIN BLDon 02-03-2022 Ferritin [Mass/Vol] 1132.0 ng/mL High 14.7-205.1 [facility] Comment on above: Order Comment: Speci men Type: BLOOD SPECIMEN Ordering Facility: [facility] Address: [address] [place] [address] Performed By: #### F ERR, IRON #### [facility] CLIA [id number] [address] [place] [address] [place] IRON + TIBCon 02-03-2022 Iron [Mass/Vol] 66 ug/dL Normal 41-186 [facility] Comment on above: Order Comment: Speci men Type: BLOOD SPECIMEN Ordering Facility: [facility] Address: [address] [place] [address] Performed By: #### F ERR, IRON #### [facility] CLIA [id number] [address] [id number] [address] [place] Iron binding capacity [Mass/Vol] 286 ug/dL Normal 232-386 [facility] Comment on above: Order Comment: Speci men Type: BLOOD SPECIMEN Ordering Facility: [facility] Address: [address] [place], [place] [address] Performed By: #### F ERR, IRON #### [facility] CLIA [id number] [address] [place] [address] [place] Iron/TIBC [Molar ratio] 23 % Normal 15-[address] [facility] Comment on above: Order Comment: Speci men Type: BLOOD SPECIMEN Ordering Facility: [facility] Address: [address] [place], [place] [address] Performed By: #### F ERR, IRON #### [facility] CLIA [id number] [address] [place] [address] [place] Bacteria identified Anaer cx Nom (Unsp spec)on 12-02-2021 Anaerobic microbial culture No anaerobic bacteria isolated. [facility] Work Phone: Bacteria identified Cx Nom ( Wound)on 12-02-2021 Wound Culture Negative [facility] Work Phone: Wound Culture Staphylococcus epidermidis [facility] Work Phone: Wound Culture Corynebacterium striatum [facility] Work Phone: Gram stain for investigation of transfusion reactionon 12-02-2021 Microscopic observation Gram stain Nom (Unsp spec) [facility] Work Phone: CBC W Auto Differential pane l (Bld)on 11-04-2021 Basophils (Bld) [#/Vol] 0.05 10*3/uL Normal <0.11 [facility] Comment on above: Order Comment: Speci men Type: BLOOD SPECIMEN Ordering Facility: [facility] Address: [address] [place], [place] [address] Performed By: #### 5 7021-8 #### [facility] CLIA [id number] [address] [place] [address] [place] Basophils/100 WBC (Bld) 0.7 % Normal [facility] Comment on above: Order Comment: Speci men Type: BLOOD SPECIMEN Ordering Facility: [facility] Address: [address] [place] [address] Performed By: #### 5 7021-8 #### [facility] CLIA [id number] [address] [place] [address] [place] Differential cell count method Nom (Bld) Auto Normal [facility] Comment on above: Order Comment: Speci men Type: BLOOD SPECIMEN Ordering Facility: [facility] Address: [address] [place] [address] Performed By: #### 5 7021-8 #### [facility] CLIA [id number] [address] [place] [address] [place] Eosinophils (Bld) [#/Vol] 0.34 10*3/uL Normal <0.46 [facility] Comment on above: Order Comment: Speci men Type: BLOOD SPECIMEN Ordering Facility: [facility] Address: [address] [place] [address] Performed By: #### 5 7021-8 #### [facility] CLIA [id number] [address] [place] [address] [place] Eosinophils/100 WBC (Bld) 4.9 % Normal [facility] Comment on above: Order Comment: Speci men Type: BLOOD SPECIMEN Ordering Facility: [facility] Address: [address] [place] [address] Performed By: #### 5 7021-8 #### [facility] CLIA [id number] [address] [place] [address] [place] Erythrocyte distribution width (RBC) [Ratio] 13.3 % Normal 11.5-15.0 [facility] Comment on above: Order Comment: Speci men Type: BLOOD SPECIMEN Ordering Facility: [facility] Address: [address] [place] [address] Performed By: #### 5 7021-8 #### [facility] CLIA [id number] [address] [place] [address] OF [facility] Hematocrit (Bld) [Volume fraction] 40.4 % Normal 36.0-46.0 [facility] Comment on above: Order Comment: Speci men Type: BLOOD SPECIMEN Ordering Facility: [facility] Address: [address] [place] [address] Performed By: #### 5 7021-8 #### [facility] CLIA [id number] [address] [place] [address] [place] Hemoglobin (Bld) [Mass/Vol] 12.9 g/dL Normal 11.5-15.5 [facility] Comment on above: Order Comment: Speci men Type: BLOOD SPECIMEN Ordering Facility: [facility] Address: [address] [place] [address] Performed By: #### 5 7021-8 #### [facility] [id number] [address] [place] [address] OF [facility] IMMATURE GRAN % 0.1 % Normal [facility] Comment on above: Order Comment: Speci men Type: BLOOD SPECIMEN Ordering Facility: [facility] Address: [address] [place] [address] Performed By: #### 5 7021-8 #### [facility] CLIA [id number] [address] [place] [address] OF [facility] IMMATURE GRAN ABS <0.03 Normal <0.10 [facility] Comment on above: Order Comment: Speci men Type: BLOOD SPECIMEN Ordering Facility: [facility] Address: [address] [place] [address] Performed By: #### 5 7021-8 #### [facility] CLIA [id number] [address] [place], [place] [id number] [place] Lymphocytes (Bld) [#/Vol] 2.70 10*3/uL Normal 1.00-4.00 [facility] Comment on above: Order Comment: Speci men Type: BLOOD SPECIMEN Ordering Facility: [facility] Address: [address] [place] [address] Performed By: #### 5 7021-8 #### [facility] CLIA [id number] [address] [place] [address] [place] Lymphocytes/100 WBC (Bld) 38.6 % Normal [facility] Comment on above: Order Comment: Speci men Type: BLOOD SPECIMEN Ordering Facility: [facility] Address: [address] [place] [address] Performed By: #### 5 7021-8 #### [facility] CLIA [id number] [address] [place] [address] [place] MCH (RBC) [Entitic mass] 28.9 pg Normal 26.0-34.0 [facility] Comment on above: Order Comment: Speci men Type: BLOOD SPECIMEN Ordering Facility: [facility] Address: [address] [place] [address] Performed By: #### 5 7021-8 #### [facility] CLIA [id number] [address] [place] [address] [place] MCHC (RBC) [Mass/Vol] 31.9 g/dL Normal 30.5-36.0 [facility] Comment on above: Order Comment: Speci men Type: BLOOD SPECIMEN Ordering Facility: [facility] Address: [address] [place] [address] Performed By: #### 5 7021-8 #### [facility] CLIA [id number] [address] [place] [address] [place] MCV (RBC) [Entitic vol] 90.4 fL Normal 80.0-100.[address] [facility] Comment on above: Order Comment: Speci men Type: BLOOD SPECIMEN Ordering Facility: [facility] Address: [address] [place], [place] [address] Performed By: #### 5 7021-8 #### [facility] CLIA [id number] [address] [place] [address] [place] Monocytes (Bld) [#/Vol] 0.49 10*3/uL Normal <0.87 [facility] Comment on above: Order Comment: Speci men Type: BLOOD SPECIMEN Ordering Facility: [facility] Address: [address] [place], [place] [address] Performed By: #### 5 7021-8 #### [facility] CLIA [id number] [address] [place] [address] [place] Monocytes/100 WBC (Bld) 7.0 % Normal [facility] Comment on above: Order Comment: Speci men Type: BLOOD SPECIMEN Ordering Facility: [facility] Address: [address] [place], [place] [address] Performed By: #### 5 7021-8 #### [facility] CLIA [id number] [address] [place] [address] [place] Neutrophils (Bld) [#/Vol] 3.40 10*3/uL Normal 1.45-7.50 [facility] Comment on above: Order Comment: Speci men Type: BLOOD SPECIMEN Ordering Facility: [facility] Address: [address] [place], [place] [address] Performed By: #### 5 7021-8 #### [facility] CLIA [id number] [address] [place] [address] [place] Neutrophils/100 WBC (Bld) 48.7 % Normal [facility] Comment on above: Order Comment: Speci men Type: BLOOD SPECIMEN Ordering Facility: [facility] Address: [address] [place], [place] [address] Performed By: #### 5 7021-8 #### [facility] CLIA [id number] [address] [place] [address] [place] Nucleated RBC (Bld) [#/Vol] 10*3/uL Normal <0.01 [facility] Comment on above: Order Comment: Speci men Type: BLOOD SPECIMEN Ordering Facility: [facility] Address: [address] [place], [place] [address] Performed By: #### 5 7021-8 #### [facility] CLIA [id number] [address] [place] [address] [place] Nucleated RBC/100 WBC (Bld) [Ratio] 0.0 /100 WBC Normal [facility] Comment on above: Order Comment: Speci men Type: BLOOD SPECIMEN Ordering Facility: [facility] Address: [address] [place], [place] [address] Performed By: #### 5 7021-8 #### [facility] [id number] [address] [place] [address] [place] Platelet mean volume (Bld) [Entitic vol] 10.1 fL Normal 9.0-12.7 [facility] Comment on above: Order Comment: Speci men Type: BLOOD SPECIMEN Ordering Facility: [facility] Address: [address] [place] [address] Performed By: #### 5 7021-8 #### [facility] CLIA [id number] [address] [place] [address] [place] Platelets (Bld) [#/Vol] 246 10*3/uL Normal 150-400 [facility] Comment on above: Order Comment: Speci men Type: BLOOD SPECIMEN Ordering Facility: [facility] Address: [address] [place] [address] Performed By: #### 5 7021-8 #### [facility] [id number] [address] [place] [address] [place] RBC (Bld) [#/Vol] 4.47 10*6/uL Normal 3.90-5.20 [facility] Comment on above: Order Comment: Speci men Type: BLOOD SPECIMEN Ordering Facility: [facility] Address: [address] [place] [address] Performed By: #### 5 7021-8 #### [facility] CLIA [id number] [address] [place] [address] [place] WBC (Bld) [#/Vol] 6.99 10*3/uL Normal 3.70-11.00 [facility] Comment on above: Order Comment: Speci men Type: BLOOD SPECIMEN Ordering Facility: [facility] Address: [address] [place] [address] Performed By: #### 5 7021-8 #### [facility] CLIA [id number] [address] [place] [address] [place] FERRITIN BLDon 11-04-2021 Ferritin [Mass/Vol] 1428.0 ng/mL High 14.7-205.1 [facility] Comment on above: Order Comment: Speci men Type: BLOOD SPECIMEN Ordering Facility: [facility] Address: [address] [place] [address] Performed By: #### I VICTOR MANUEL, FERR #### [facility] CLIA [id number] [address] [place] [address] [place] IRON + TIBCon 11-04-2021 Iron [Mass/Vol] 60 ug/dL Normal 41-186 [facility] Comment on above: Order Comment: Speci men Type: BLOOD SPECIMEN Ordering Facility: [facility] Address: [address] [place] [address] Performed By: #### I VICTOR MANUEL, FERR #### [facility] CLIA [id number] [address] [place] [address] [place] Iron binding capacity [Mass/Vol] 242 ug/dL Normal 232-386 [facility] Comment on above: Order Comment: Flip headley Type: BLOOD SPECIMEN Ordering Facility: [facility] Address: [address] [place] [address] Performed By: #### I EVELIA RUSH #### [facility] CLIA [id number] [address] [place] [address] OF [facility] Iron/TIBC [Molar ratio] 25 % Normal 15-[address] [facility] Comment on above: Order Comment: Flip headley Type: BLOOD SPECIMEN Ordering Facility: [facility] Address: [address] [place] [address] Performed By: #### I EVELIA RUSH #### [facility] CLIA [id number] [address] [place] [address] Justine 09-29-2021 JOCELYNE Telephone (HEMPREETHI) OLGA DONALDSON ([id number]) 1945 F Date Time Provider Department 09/29/21 [...] Date Reviewed: 05/07/2021 Reviewed by: 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 APRN.SHIPPING AND RECEIVING CLERK - Fully Assessed Reason for Visit: Results [95] Follow Up [171] Primary Visit Diagnosis:Anemia, unspecified type [D64.9] Order(s):CBC + DIFF [SQCBCDIF] Order #: [id number] FUTURE COMP METABOLIC PANEL [SQCMP] Order #: [id number] FUTURE PROTEIN ELECTROPHORESIS SERUM W/INTERP [SQSEPG] Order #: [id number] FUTURE MONOCLONAL PROTEIN, SERUM (BLOOD) [SQSERMPA] Order #: [id number] FUTURE Prescriptions as of 04/12/2022 - ascorbic [...] MIST) 0.65 % nasal spray Use 1 [place] in the nose as needed. - diltiazem [...] Specified Conge (more content not included)... Normal [facility] Justine 05-09-2021 JOCELYNE Telephone (EVELYN) OLGA DONALDSON ([id number]) 1945 F Date Time Provider Department 05/09/21 LASHONDA IRAHETA During your visit today, we recorded the following information about you: 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 APRN.CNP 05/09/2021 9:20 AM Signed Please inform pt. that her labs look good. Follow up as scheduled. Thank you. VINI Lopez 05/09/2021 9:22 AM Signed Pt aware of results. Jocelyn Abernathy Allergies As of Date: 05/09/2021 Noted Allergy Reaction KEFLEX (CEPHALEXIN) 07/02/2005 2 - Rash tape [Other] 07/30/2005 2 - Rash Comments: Nylon tape caused rash. Use paper tape. Also no dark brown bandaids. Spot bandaid ok. 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 - diltiazem [...] by STACIE VARNER LPN on 05/09/21 Normal [facility] - Specimen inform ationon 03-27-2021 Specimen source Nom (Unsp spec) Stool [facility] No Panel Informationon 03-27 Occult Blood Diagnostic Positive [facility] FERRITIN BLDon 03-22-2021 Ferritin [Mass/Vol] 1064.0 ng/mL High 14.7 - 2 05.1 ng/mL [facility] CULTURE FUNGUSon 02-08-2018 CULTURE FUNGUS 1 Organism Nithya albicans Many Normal [facility] Comment on above: Performed By: #### C /FUN, S/FUN ####[facility] [id number] [place] [address] STAIN FUNGUSon 01-19-2018 STAIN FUNGUS STAIN FUNGUS --> Status: F 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 Direct exam by Calcofluor stain. Direct exam by Calcofluor stain. Normal [facility] Comment on above: Performed By: #### C /FUN, S/FUN ####[facility] [id number] [place] [address] Office Visit: Rudy- Romero mina 01-13-2017 Adolescent depression screening assessment Adolescent depression screening assessment Invalid Interpretation Code [facility] Work Phone: Adult depression screening assessment Adolescent depression screening assessment [facility] Work Phone: Documentation of current medications (procedure) Done Invalid Interpretation Code [facility] Work Phone: [phone] Fall risk assessment Fall risk assessment [facility] Work Phone: [phone] Tobacco smoking status NHIS Never [facility] Work Phone: [phone] Tobacco smoking status NHIS Former smoker [facility] Work Phone: [phone] Tobacco use [facility] Former smoker Invalid Interpretation Code [facility] Work Phone: [phone] Clinical Lists Update: 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 Left ventricular Ejection fraction 70 % [facility] Work Phone: [phone] Office Visiton 08-29-2015 cardiac risk group [facility] Work Phone: [phone] General cardiovascular disease 10Y risk [#] [place].Mirza'Frances Not enough information [facility] Work Phone: [phone] Replaced Document: [employer] E CG Observationson 08-29-2015 EKG QRS axis 29 deg [facility] Work Phone: [phone] electrocardiogram interpretation Sinus Tachycardia -With rate variation cv = 10.WITHIN NORMAL LIMITS Invalid Interpretation Code [facility] Work Phone: [phone] GE use only - for [employer] import when terms are not otherwise specified 411 ms Invalid Interpretation Code [facility] Work Phone: [phone] Interpretation Sinus Tachycardia -With rate variation cv = 10.WITHIN NORMAL LIMITS [facility] Work Phone: [phone] P [place] 41 deg [facility] Work Phone: [phone] P wave axis, electrocardiogram 41 deg Invalid Interpretation Code [facility] Work Phone: [phone] [place] Interval 134 ms [facility] Work Phone: [phone] [place] interval, electrocardiogram 134 ms Invalid Interpretation Code [facility] Work Phone: [phone] Pulse (Heart Rate) 109 /min Invalid Interpretation Code [facility] Work Phone: [phone] QRS axis, electrocardiogram 29 deg Invalid Interpretation Code [facility] Work Phone: [phone] QRS Duration 80 ms [facility] Work Phone: [phone] QRS duration, electrocardiogram 80 ms Invalid Interpretation Code [facility] Work Phone: [phone] QT Interval new path ms [facility] Work Phone: [phone] QT interval, electrocardiogram new path ms Invalid Interpretation Code [facility] Work Phone: [phone] QTc Carney 411 ms [facility] Work Phone: [phone] T [place] 37 deg [facility] Work Phone: [phone] T wave axis, electrocardiogram 37 deg Invalid Interpretation Code [facility] Work Phone: [phone] Bacteria identified Anaer cx Nom (Unsp spec) Anaerobic microbial culture No anaerobic bacteria isolated. [facility] Work Phone: [phone] Bacteria identified Cx Nom ( Wound) Wound Culture Negative [facility] Work Phone: Wound Culture Staphylococcus epidermidis [facility] Work Phone: [phone] Wound Culture Corynebacterium striatum [facility] Work Phone: Culture, urine Bacteria identified Cx Nom (U) Klebsiella pneumoniae sp pneum [facility] Work Phone: Gram stain for investigation of transfusion reaction Microscopic observation Gram stain Nom (Unsp spec) [facility] Work Phone: Vital Signs Date Time Vital Sign Value Performing Clinician Facility 03-04-2025 23:10-0400 Body temperature 98 [degF] Dr. Ramone Smiley MD Work Phone: [facility] 03-04-2025 23:10-0400 Diastolic blood pressure 80 mm[Hg] Dr. Ramone Smiley MD Work Phone: [facility] 03-04-2025 23:10-0400 Heart rate 81 /min Dr. Ramone Smiley MD Work Phone: [facility] 03-04-2025 23:10-0400 Respiratory rate 16 /min Dr. Ramone Smiley MD Work Phone: [facility] 03-04-2025 23:10-0400 SaO2% (BldA) [Mass fraction] 95 % Dr. Ramone Smiley MD Work Phone: [facility] 03-04-2025 23:10-0400 Systolic blood pressure 135 mm[Hg] Dr. Ramone Smiley MD Work Phone: [phone] [place] [address] 03-04-2025 19:04-0400 Inhaled oxygen flow rate 2 L/min Dr. Ramone Smiley MD Work Phone: [phone])264-991141 [place] [address] 03-04-2025 18:54-0400 Body mass index (BMI) [Ratio] 28 kg/m2 Dr. Ramone Smiley MD Work Phone: [phone])106-136941 [place] [address] 03-04-2025 18:54-0400 Body weight 71.[address] Ramone Smiley MD Work Phone: [phone])553-788641 [place] [address] 03-04-2025 18:37-0400 Body height 160.[address] Ramone Smiley MD Work Phone: [phone])330-783141 [place] [address] 02-19-2025 00:38-0400 Body temperature 98.7 [degF] Dr. Ramone Smiley MD Work Phone: 8(698)857-915041 [place] [address] 02-19-2025 00:38-0400 Diastolic blood pressure 86 mm[Hg] Dr. Ramone Smiley MD Work Phone: 7(399)328-565041 [place] [address] 02-19-2025 00:38-0400 Heart rate 98 /min Dr. Ramone Smiley MD Work Phone: 3(455)133-798641 [place] [address] 02-19-2025 00:38-0400 Respiratory rate 22 /min Dr. Ramone Smiley MD Work Phone: [phone])563-281341 [place] [address] 02-19-2025 00:38-0400 SaO2% (BldA) [Mass fraction] 98 % Dr. Ramone Smiley MD Work Phone: [phone])[phone] [place] [address] 02-19-2025 00:38-0400 Systolic blood pressure 122 mm[Hg] Dr. Ramone Smiley MD Work Phone: 9(814)804-996441 [place] [address] 02-19-2025 00:23-0400 Inhaled oxygen flow rate 2 L/min Dr. Ramone Smiley MD Work Phone: 4(989)033-732341 [place] [address] 02-18-2025 20:51-0400 Body height 160.[address] Ramone Smiley MD Work Phone: [facility] 02-18-2025 20:51-0400 Body mass index (BMI) [Ratio] 30.4 kg/m2 Dr. Ramone Smiley MD Work Phone: [phone])860-490776 [place] [address] 02-18-2025 20:51-0400 Body weight 77.[address] Ramone Smiley MD Work Phone: 7(810)440-750676 [place] [address] 02-17-2025 18:40-0400 Heart rate 78 /min Dr. Ramone Smiley MD Work Phone: 4(708)830-709141 [place] [address] 02-17-2025 18:40-0400 Inhaled oxygen flow rate 2 L/min Dr. Ramone Smiley MD Work Phone: 7(521)338-391741 [place] [address] 02-17-2025 18:40-0400 Respiratory rate 18 /min Dr. Ramone Smiley MD Work Phone: 8(578)343-589841 [place] [address] 02-17-2025 18:40-0400 SaO2% (BldA) [Mass fraction] 94 % Dr. Ramone Smiley MD Work Phone: [phone])890-021041 [place] [address] 02-17-2025 18:08-0400 Body temperature 98.9 [degF] Dr. Ramone Smiley MD Work Phone: [phone])492-246241 [place] [address] 02-17-2025 18:08-0400 Diastolic blood pressure 54 mm[Hg] Dr. Ramone Smiley MD Work Phone: 9(366)403-146493 [address] 02-17-2025 18:08-0400 Systolic blood pressure 137 mm[Hg] Dr. Ramone Smiley MD Work Phone: 1(190)152-850341 [place] [address] 02-17-2025 04:49-0400 Body mass index (BMI) [Ratio] 29.4 kg/m2 Dr. Ramone Smiley MD Work Phone: [facility] 02-17-2025 04:49-0400 Body weight 75.[address] Ramone Smiley MD Work Phone: 4(426)591-857776 [place] [address] 02-15-2025 15:20-0400 Body height 160.[address] Ramone Smiley MD Work Phone: 1(081)147-215576 [place] [address] 02-15-2025 13:54-0400 Body temperature 99.6 [degF] Dr. Ramone Smiley MD Work Phone: 1(004)889-316576 [place] [address] 02-15-2025 13:54-0400 Diastolic blood pressure 53 mm[Hg] Dr. Ramone Smiley MD Work Phone: 4(239)444-603241 [place] [address] 02-15-2025 13:54-0400 Heart rate 98 /min Dr. Ramone Smiley MD Work Phone: 9(067)755-263941 [place] [address] 02-15-2025 13:54-0400 Inhaled oxygen flow rate 3 L/min Dr. Ramone Smiley MD Work Phone: 9(820)165-143741 [place] [address] 02-15-2025 13:54-0400 Respiratory rate 22 /min Dr. Ramone Smiley MD Work Phone: 6(932)969-800941 [place] [address] 02-15-2025 13:54-0400 SaO2% (BldA) [Mass fraction] 98 % Dr. Ramone Smiley MD Work Phone: 7(873)278-607941 [place] [address] 02-15-2025 13:54-0400 Systolic blood pressure 110 mm[Hg] Dr. Ramone Smiley MD Work Phone: 4(566)925-112241 [place] [address] 02-15-2025 08:36-0400 Body height 160.[address] Ramone Smiley MD Work Phone: 3(618)288-663441 [place] [address] 02-15-2025 08:36-0400 Body mass index (BMI) [Ratio] 30.4 kg/m2 Dr. Ramone Smiley MD Work Phone: 2(163)648-719141 [place] [address] 02-15-2025 08:36-0400 Body weight 78.[address] Ramone Smiley MD Work Phone: 8(107)693-431241 [place] [address] 02-13-2025 16:00-0400 Inhaled oxygen flow rate 2 L/min Dr. Ramone Smiley MD Work Phone: 2(443)284-474476 [place] [address] 02-13-2025 14:04-0400 Body temperature 98.4 [degF] Dr. Ramone Smiley MD Work Phone: 5(502)484-587041 [place] [address] 02-13-2025 14:04-0400 Heart rate 94 /min Dr. Ramone Smiley MD Work Phone: 1(491)817-263341 [place] [address] 02-13-2025 14:04-0400 Respiratory rate 20 /min Dr. Ramone Smiley MD Work Phone: 8(249)022-835041 [place] [address] 02-13-2025 14:04-0400 SaO2% (BldA) [Mass fraction] 94 % Dr. Ramone Smiley MD Work Phone: 5(134)222-405241 [place] [address] 02-13-2025 08:41-0400 Diastolic blood pressure 51 mm[Hg] Dr. Ramone Smiley MD Work Phone: 2(668)371-459541 [place] [address] 02-13-2025 08:41-0400 Systolic blood pressure 132 mm[Hg] Dr. Ramone Smiley MD Work Phone: 3(629)568-886241 [place] [address] 02-10-2025 13:27-0400 Body height 160.[address] Ramone Smiley MD Work Phone: 4(394)319-849041 [place] [address] 02-10-2025 13:27-0400 Body weight 76.[address] Ramone Smiley MD Work Phone: 2(596)611-173541 [place] [address] 02-09-2025 16:43-0400 Body mass index (BMI) [Ratio] 29.9 kg/m2 Dr. Ramone Smiley MD Work Phone: 7(751)705-303341 [place] [address] 02-09-2025 15:12-0400 Inhaled oxygen flow rate 2 L/min Dr. Ramone Smiley MD Work Phone: 9(233)899-649141 [place] [address] 02-09-2025 15:12-0400 SaO2% (BldA) [Mass fraction] 91 % Dr. Ramone Smiley MD Work Phone: 8(894)605-004341 [place] [address] 02-09-2025 15:08-0400 Body temperature 99 [degF] Dr. Ramone Smiley MD Work Phone: 1(102)560-327641 [place] [address] 02-09-2025 15:08-0400 Diastolic blood pressure 46 mm[Hg] Dr. Ramone Smiley MD Work Phone: 9(512)964-866276 [place] [address] 02-09-2025 15:08-0400 Heart rate 94 /min Dr. Ramone Smiley MD Work Phone: 6(304)358-454541 [place] [address] 02-09-2025 15:08-0400 Respiratory rate 25 /min Dr. Ramone Smiley MD Work Phone: 9(093)442-070041 [place] [address] 02-09-2025 15:08-0400 Systolic blood pressure 136 mm[Hg] Dr. Ramone Smiley MD Work Phone: 9(167)969-069341 [place] [address] 02-09-2025 11:52-0400 Body height 160.[address] Ramone Smiley MD Work Phone: 1(553)648-746341 [place] [address] 02-09-2025 11:52-0400 Body mass index (BMI) [Ratio] 30.1 kg/m2 Dr. Ramone Smiley MD Work Phone: 3(742)731-323341 [place] [address] 02-09-2025 11:52-0400 Body weight 77.[address] Ramone Smiley MD Work Phone: 5(633)392-623341 [place] [address] 02-06-2025 15:38-0400 Body temperature 97.5 [degF] Dr. Ramone Smiley MD Work Phone: 4(394)129-426741 [place] [address] 02-06-2025 15:38-0400 Diastolic blood pressure 81 mm[Hg] Dr. Ramone Smiley MD Work Phone: 0(149)971-201941 [place] [address] 02-06-2025 15:38-0400 Heart rate 74 /min Dr. Ramone Smiley MD Work Phone: 2(207)753-414441 [place] [address] 02-06-2025 15:38-0400 Respiratory rate 18 /min Dr. Ramone Smiley MD Work Phone: 9(760)202-799141 [place] [address] 02-06-2025 15:38-0400 SaO2% (BldA) [Mass fraction] 93 % Dr. Ramone Smiley MD Work Phone: 0(746)745-325541 [place] [address] 02-06-2025 15:38-0400 Systolic blood pressure 117 mm[Hg] Dr. Ramone Smiley MD Work Phone: [facility] 02-06-2025 07:36-0400 Inhaled oxygen flow rate 2 L/min Dr. Ramone Smiley MD Work Phone: 5(755)499-968876 [place] [address] 02-04-2025 12:34-0400 Body height 160.[address] Ramone Smiley MD Work Phone: 5(236)736-910941 [place] [address] 02-04-2025 12:34-0400 Body mass index (BMI) [Ratio] 27.8 kg/m2 Dr. Ramone Smiley MD Work Phone: 2(083)365-645641 [place] [address] 02-04-2025 12:34-0400 Body weight 71.[address] Ramone Smiley MD Work Phone: 6(176)278-729041 [place] [address] 02-04-2025 11:06-0400 Body temperature 98.6 [degF] Dr. Ramone Smiley MD Work Phone: 3(592)459-062641 [place] [address] 02-04-2025 11:06-0400 Diastolic blood pressure 46 mm[Hg] Dr. Ramone Smiley MD Work Phone: 6(079)196-885441 [place] [address] 02-04-2025 11:06-0400 Heart rate 88 /min Dr. Ramone Smiley MD Work Phone: 7(716)104-812541 [place] [address] 02-04-2025 11:06-0400 Respiratory rate 30 /min Dr. Ramone Smiley MD Work Phone: 1(998)451-712041 [place] [address] 02-04-2025 11:06-0400 SaO2% (BldA) [Mass fraction] 99 % Dr. Ramone Smiley MD Work Phone: 8(860)526-716976 [place] [address] 02-04-2025 11:06-0400 Systolic blood pressure 111 mm[Hg] Dr. Ramone Smiley MD Work Phone: 2(136)669-559341 [place] [address] 02-04-2025 11:00-0400 Inhaled oxygen flow rate 3 L/min Dr. Ramone Smiley MD Work Phone: 6(052)603-866941 [place] [address] 02-04-2025 06:20-0400 Body height 160.[address] Ramone Smiley MD Work Phone: [facility] 02-04-2025 06:20-0400 Body mass index (BMI) [Ratio] 29.9 kg/m2 Dr. Ramone Smiley MD Work Phone: [facility] 02-04-2025 06:20-0400 Body weight 76.[address] Ramone Smiley MD Work Phone: 4(207)878-608776 [place] [address] 01-31-2025 06:28-0400 Body mass index (BMI) [Ratio] 27.4 kg/m2 Dr. Ramone Smiley MD Work Phone: 2(971)745-087293 [address] 01-31-2025 06:28-0400 Body weight 70.[address] Ramone Smiley MD Work Phone: 0(345)069-815441 [place] [address] 01-31-2025 06:28-0400 Diastolic blood pressure 59 mm[Hg] Dr. Ramone Smiley MD Work Phone: 4(523)685-834441 [place] [address] 01-31-2025 06:28-0400 Heart rate 95 /min Dr. Ramone Smiley MD Work Phone: 7(282)311-871393 [address] 01-31-2025 06:28-0400 Respiratory rate 18 /min Dr. Ramone Smiley MD Work Phone: 6(042)290-582141 [place] [address] 01-31-2025 06:28-0400 SaO2% (BldA) [Mass fraction] 95 % Dr. Ramone Smiley MD Work Phone: 9(780)346-937093 [address] 01-31-2025 06:28-0400 Systolic blood pressure 107 mm[Hg] Dr. Ramone Smiley MD Work Phone: [facility] 01-26-2025 05:13-0400 Body temperature 98.3 [degF] Dr. Ramone Smiley MD Work Phone: 4(805)220-618793 [address] 01-26-2025 05:13-0400 Diastolic blood pressure 72 mm[Hg] Dr. Ramone Smiley MD Work Phone: 9(479)829-159293 [address] 01-26-2025 05:13-0400 Heart rate 83 /min Dr. Ramone Smiley MD Work Phone: [facility] 01-26-2025 05:13-0400 Respiratory rate 18 /min Dr. Ramone Smiley MD Work Phone: 3(861)218-812541 [place] [address] 01-26-2025 05:13-0400 SaO2% (BldA) [Mass fraction] 97 % Dr. Ramone Smiley MD Work Phone: 1(953)336-752641 [place] [address] 01-26-2025 05:13-0400 Systolic blood pressure 116 mm[Hg] Dr. Ramone Smiley MD Work Phone: 8(772)753-953541 [place] [address] 01-26-2025 03:02-0400 Body height 160.[address] Ramone Smiley MD Work Phone: 4(913)046-097741 [place] [address] 01-26-2025 03:02-0400 Body mass index (BMI) [Ratio] 31.4 kg/m2 Dr. Ramone Smiley MD Work Phone: 7(034)899-127041 [place] [address] 01-26-2025 03:02-0400 Body weight 80.[address] Ramone Smiley MD Work Phone: 0(448)346-148641 [place] [address] 01-24-2025 13:57-0400 Body temperature 97.4 [degF] Dr. Ramone Smiley MD Work Phone: 5(327)179-403341 [place] [address] 01-24-2025 13:57-0400 Diastolic blood pressure 68 mm[Hg] Dr. Ramone Smiley MD Work Phone: 9(303)689-298041 [place] [address] 01-24-2025 13:57-0400 Heart rate 87 /min Dr. Ramone Smiley MD Work Phone: 5(877)872-842441 [place] [address] 01-24-2025 13:57-0400 Respiratory rate 16 /min Dr. Ramone Smiley MD Work Phone: 8(360)555-079941 [place] [address] 01-24-2025 13:57-0400 SaO2% (BldA) [Mass fraction] 97 % Dr. Ramone Smiley MD Work Phone: 0(246)969-748241 [place] [address] 01-24-2025 13:57-0400 Systolic blood pressure 111 mm[Hg] Dr. Ramone Smiley MD Work Phone: 6(460)220-369641 [place] [address] 01-24-2025 05:23-0400 Body mass index (BMI) [Ratio] 30.7 kg/m2 Dr. Ramone Smilye MD Work Phone: 7(301)365-051776 [place] [address] 01-24-2025 05:23-0400 Body weight 78.[address] Ramone Smiley MD Work Phone: 8(622)845-422541 [place] [address] 01-22-2025 14:00-0400 Inhaled oxygen concentration 24 % Dr. Ramone Smiley MD Work Phone: 4(284)579-658741 [place] [address] 01-22-2025 11:00-0400 Inhaled oxygen flow rate 2 L/min Dr. Ramone Smiley MD Work Phone: 8(452)907-185041 [place] [address] 01-20-2025 10:06-0400 Body height 160.[address] Ramone Smiley MD Work Phone: 0(608)358-329841 [place] [address] 01-15-2025 18:58-0400 Body temperature 97.9 [degF] Dr. Ramone Smiley MD Work Phone: 3(264)433-363941 [place] [address] 01-15-2025 18:58-0400 Diastolic blood pressure 70 mm[Hg] Dr. Ramone Smiley MD Work Phone: 7(730)506-630341 [place] [address] 01-15-2025 18:58-0400 Heart rate 69 /min Dr. Ramone Smiley MD Work Phone: 2(672)114-815741 [place] [address] 01-15-2025 18:58-0400 Respiratory rate 22 /min Dr. Ramone Smiley MD Work Phone: 2(746)851-623641 [place] [address] 01-15-2025 18:58-0400 SaO2% (BldA) [Mass fraction] 98 % Dr. Ramone Smiley MD Work Phone: 6(833)300-228341 [place] [address] 01-15-2025 18:58-0400 Systolic blood pressure 130 mm[Hg] Dr. Ramone Smiley MD Work Phone: 3(338)092-143476 [place] [address] 01-15-2025 14:14-0400 Body height 160.[address] Ramone Smiley MD Work Phone: 4(592)053-950976 [place] [address] 01-15-2025 14:14-0400 Body mass index (BMI) [Ratio] 32.3 kg/m2 Dr. Ramone Smiley MD Work Phone: 6(486)696-312576 [place] [address] 01-15-2025 14:14-0400 Body weight 82.[address] Ramone Smiley MD Work Phone: 9(131)873-526541 [place] [address] 01-07-2025 17:34-0400 Body temperature 97.6 [degF] Dr. Ramone Smiley MD Work Phone: 1(033)911-694941 [place] [address] 01-07-2025 17:34-0400 Diastolic blood pressure 78 mm[Hg] Dr. Ramone Smiley MD Work Phone: 4(506)951-187041 [place] [address] 01-07-2025 17:34-0400 Heart rate 82 /min Dr. Ramone Smiley MD Work Phone: 3(323)582-352141 [place] [address] 01-07-2025 17:34-0400 Respiratory rate 19 /min Dr. Ramone Smiley MD Work Phone: 2(142)932-357841 [place] [address] 01-07-2025 17:34-0400 SaO2% (BldA) [Mass fraction] 97 % Dr. Ramone Smiley MD Work Phone: 0(791)492-629741 [place] [address] 01-07-2025 17:34-0400 Systolic blood pressure 147 mm[Hg] Dr. Ramone Smiley MD Work Phone: 6(432)560-466941 [place] [address] 01-07-2025 14:56-0400 Body height 160.[address] Ramone Smiley MD Work Phone: 1(213)625-070641 [place] [address] 01-07-2025 14:56-0400 Body mass index (BMI) [Ratio] 31.5 kg/m2 Dr. Ramone Smiley MD Work Phone: 1(521)760-237241 [place] [address] 01-07-2025 14:56-0400 Body weight 80.[address] Ramone Smiley MD Work Phone: 7(219)209-454141 [place] [address] 12-30-2023 14:14-0400 Body temperature 98.9 [degF] Dr. Ramone Smiley Work Phone: 3(184)280-568276 [place] [address] 12-30-2023 14:14-0400 Diastolic blood pressure 60 mm[Hg] Dr. Ramone Smiley Work Phone: [facility] 12-30-2023 14:14-0400 Heart rate 80 /min Dr. Ramone Smiley Work Phone: [facility] 12-30-2023 14:14-0400 Respiratory rate 18 /min Dr. Ramone Smiley Work Phone: [facility] 12-30-2023 14:14-0400 SaO2% (BldA) [Mass fraction] 95 % Dr. Ramnoe Smiley Work Phone: [facility] 12-30-2023 14:14-0400 Systolic blood pressure 131 mm[Hg] Dr. Ramone Smiley Work Phone: [facility] 12-29-2023 07:09-0400 Inhaled oxygen flow rate 2 L/min Dr. Ramone Smiley Work Phone: [facility] 12-28-2023 11:27-0400 Body height 160.[address] Ramone Smiley Work Phone: [facility] 12-28-2023 11:27-0400 Body mass index (BMI) [Ratio] 27.8 kg/m2 Dr. Ramone Smiley Work Phone: [facility] 12-28-2023 11:27-0400 Body weight 71.[address] Ramone Smiley Work Phone: [facility] 12-27-2023 23:42-0400 Body temperature 97.5 [degF] [facility] 12-27-2023 23:42-0400 Diastolic blood pressure 59 mm[Hg] [facility] 12-27-2023 23:42-0400 Heart rate 77 /min [facility] 12-27-2023 23:42-0400 Respiratory rate 20 /min [facility] 12-27-2023 23:42-0400 SaO2% (BldA) [Mass fraction] 97 % [facility] 12-27-2023 23:42-0400 Systolic blood pressure 159 mm[Hg] [facility] 12-27-2023 22:06-0400 Body height 160.02 cm [facility] 12-27-2023 22:06-0400 Body mass index (BMI) [Ratio] 29.5 kg/m2 [facility] 12-27-2023 22:06-0400 Body weight 75.6 kg [facility] 08-17-2023 13:26-0500 Body temperature 97.1 [degF] Dr. Ramone Smiley Work Phone: [facility] 08-17-2023 13:26-0500 Diastolic blood pressure 65 mm[Hg] Dr. Ramone Smiley Work Phone: 5(766)971-854276 [place] [address] 08-17-2023 13:26-0500 Heart rate 84 /min Dr. Ramone Smiley Work Phone: 0(400)229-445976 [place] [address] 08-17-2023 13:26-0500 Respiratory rate 18 /min Dr. Ramone Smiley Work Phone: [facility] 08-17-2023 13:26-0500 SaO2% (BldA) [Mass fraction] 98 % Dr. Ramone Smiley Work Phone: [facility] 08-17-2023 13:26-0500 Systolic blood pressure 140 mm[Hg] Dr. Ramone Smiley Work Phone: [facility] 08-14-2023 13:28-0500 Body height 160.[address] Ramone Smiley Work Phone: [facility] 08-14-2023 13:28-0500 Body weight 60.[address] Ramone Smiley Work Phone: [facility] 08-13-2023 15:22-0500 Body mass index (BMI) [Ratio] 23.4 kg/m2 Dr. Ramone Smiley Work Phone: [facility] 08-13-2023 14:18-0500 Body temperature 98.6 [degF] Dr. Ramone Smiley Work Phone: [facility] 08-13-2023 14:18-0500 Diastolic blood pressure 59 mm[Hg] Dr. Ramone Smiley Work Phone: [facility] 08-13-2023 14:18-0500 Heart rate 107 /min Dr. Ramone Smiley Work Phone: [facility] 08-13-2023 14:18-0500 Respiratory rate 20 /min Dr. Ramone Smiley Work Phone: [facility] 08-13-2023 14:18-0500 SaO2% (BldA) [Mass fraction] 97 % Dr. Ramone Smiley Work Phone: [facility] 08-13-2023 14:18-0500 Systolic blood pressure 152 mm[Hg] Dr. Ramone Smiley Work Phone: [facility] 08-13-2023 10:03-0500 Body height 160.[address] Ramone Smiley Work Phone: [facility] 08-13-2023 10:03-0500 Body mass index (BMI) [Ratio] 24.5 kg/m2 Dr. Ramone Smiley Work Phone: [facility] 08-13-2023 10:03-0500 Body weight [address] Ramone Smiley Work Phone: [facility] 08-07-2023 20:23-0500 Body temperature 97.6 [degF] Dr. Ramone Smiley Work Phone: [facility] 08-07-2023 20:23-0500 Diastolic blood pressure 51 mm[Hg] Dr. Ramone Smiley Work Phone: [facility] 08-07-2023 20:23-0500 Heart rate 87 /min Dr. Ramone Smiley Work Phone: [facility] 08-07-2023 20:23-0500 Respiratory rate 18 /min Dr. Ramone Smiley Work Phone: [facility] 08-07-2023 20:23-0500 SaO2% (BldA) [Mass fraction] 98 % Dr. Ramone Smiley Work Phone: [facility] 08-07-2023 20:23-0500 Systolic blood pressure 115 mm[Hg] Dr. Ramone Smiley Work Phone: [facility] 07-19-2023 01:01-0500 Diastolic blood pressure 61 mm[Hg] Dr. Ramone Smiley Work Phone: [facility] 07-19-2023 01:01-0500 Heart rate 101 /min Dr. Ramone Smiley Work Phone: [facility] 07-19-2023 01:01-0500 Respiratory rate 20 /min Dr. Ramone Smiley Work Phone: 9(364)549-209676 [place] [address] 07-19-2023 01:01-0500 Systolic blood pressure 145 mm[Hg] Dr. Ramone Smiley Work Phone: 7(522)095-126976 [place] [address] 07-18-2023 23:28-0500 Body mass index (BMI) [Ratio] 25.7 kg/m2 Dr. Ramone Smiley Work Phone: [facility] 07-18-2023 23:28-0500 Body weight 65.[address] Ramone Smiley Work Phone: [facility] 07-18-2023 22:47-0500 Body temperature 97.6 [degF] Dr. Ramone Smiley Work Phone: 2(300)036-016076 [place] [address] 07-18-2023 22:47-0500 SaO2% (BldA) [Mass fraction] 96 % Dr. Ramone Smiley Work Phone: [facility] 07-18-2023 22:44-0500 Body height 160.[address] Ramone Smiley Work Phone: [facility] 07-15-2023 13:24-0500 Body temperature 98.2 [degF] Dr. Ramone Smiley Work Phone: [facility] 07-15-2023 13:24-0500 Diastolic blood pressure 74 mm[Hg] Dr. Ramone Smiley Work Phone: [facility] 07-15-2023 13:24-0500 Heart rate 89 /min Dr. Ramone Smiley Work Phone: [facility] 07-15-2023 13:24-0500 SaO2% (BldA) [Mass fraction] 92 % Dr. Ramone Smiley Work Phone: [facility] 07-15-2023 13:24-0500 Systolic blood pressure 122 mm[Hg] Dr. Ramone Smiley Work Phone: [facility] 01-28-2023 16:36-0400 Diastolic blood pressure 63 mm[Hg] [facility] 01-28-2023 16:36-0400 Heart rate 75 /min [facility] 01-28-2023 16:36-0400 Systolic blood pressure 170 mm[Hg] [facility] 01-28-2023 14:54-0400 Body height 160.02 cm [facility] 01-28-2023 14:54-0400 Body mass index (BMI) [Ratio] 26.9 kg/m2 [facility] 01-28-2023 14:54-0400 Body temperature 97.8 [degF] [facility] 01-28-2023 14:54-0400 Body weight 69 kg [facility] 01-28-2023 14:54-0400 Respiratory rate 25 /min [facility] 01-28-2023 14:54-0400 SaO2% (BldA) [Mass fraction] 97 % [facility] 07-14-2022 18:11-0500 Diastolic blood pressure 64 mm[Hg] [facility] Work Phone: 07-14-2022 18:11-0500 Heart rate 73 /min [facility] Work Phone: 07-14-2022 18:11-0500 Respiratory rate 18 /min [facility] Work Phone: 07-14-2022 18:11-0500 SaO2% (BldA) [Mass fraction] 98 % [facility] Work Phone: 07-14-2022 18:11-0500 Systolic blood pressure 174 mm[Hg] [facility] Work Phone: 07-14-2022 11:59-0500 Body height 160.02 cm [facility] Work Phone: 07-14-2022 11:59-0500 Body mass index (BMI) [Ratio] 31.1 kg/m2 [facility] Work Phone: 07-14-2022 11:59-0500 Body temperature 97.2 [degF] [facility] Work Phone: 07-14-2022 11:59-0500 Body weight 79.83 kg [facility] Work Phone: 05-07-2022 13:26-0400 Body height 158.1 cm 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 [employer]PING [employer] RECEIVING CLERK Work Phone: [facility] 05-07-2022 13:26-0400 Body temperature 97.2 [degF] [place] Iraheta [employer] ARCH[employer]ECT.SHIPPING AND RECEIVING CLERK Work Phone: [facility] 05-07-2022 13:26-0400 Body weight 73.71 kg 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 [employer] ARCHITECT.SHIPPING AND RECEIVING CLERK Work Phone: [facility] 05-07-2022 13:26-0400 Diastolic blood pressure 68 mm[Hg] 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 [employer] ARCHITECT.SHIPPING AND RECEIVING CLERK Work Phone: [facility] 05-07-2022 13:26-0400 Heart rate 66 /min 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 [employer] ARCHITECT.SHIPPING AND RECEIVING CLERK Work Phone: [facility] 05-07-2022 13:26-0400 Systolic blood pressure 160 mm[Hg] [place] Iraheta [employer]IX ARCHITECT.SHIPPING AND RECEIVING CLERK Work Phone: [facility] 02-26-2022 09:43-0400 Body height 160.[address] Ramone Smiley Work Phone: [facility] Work Phone: 02-26-2022 09:43-0400 Body mass index (BMI) [Ratio] 28.1 kg/m2 Dr. Ramone Smiley Work Phone: [facility] Work Phone: 02-26-2022 09:43-0400 Body temperature 97.9 [degF] Dr. Ramone Smiley Work Phone: [facility] Work Phone: 02-26-2022 09:43-0400 Body weight 72.[address] Ramone Smiley Work Phone: [facility] Work Phone: 02-26-2022 09:43-0400 Diastolic blood pressure 80 mm[Hg] Dr. Ramone Smiley Work Phone: [facility] Work Phone: 02-26-2022 09:43-0400 Heart rate 70 /min Dr. Ramone Smiley Work Phone: [facility] Work Phone: 02-26-2022 09:43-0400 Respiratory rate 14 /min Dr. Ramone Smiley Work Phone: [facility] Work Phone: 02-26-2022 09:43-0400 SaO2% (BldA) [Mass fraction] 98 % Dr. Ramone Smiley Work Phone: [facility] Work Phone: 02-26-2022 09:43-0400 Systolic blood pressure 134 mm[Hg] Dr. Ramone Smiley Work Phone: [facility] Work Phone: 12-17-2021 13:23-0400 Diastolic blood pressure 60 mm[Hg] Dr. Ramone Smiley Work Phone: [facility] Work Phone: 12-17-2021 13:23-0400 Systolic blood pressure 154 mm[Hg] Dr. Ramone Smiley Work Phone: [facility] Work Phone: 12-10-2021 10:34-0400 Diastolic blood pressure 70 mm[Hg] Dr. Ramone Smiley Work Phone: [facility] Work Phone: 12-10-2021 10:34-0400 Systolic blood pressure 124 mm[Hg] Dr. Ramone Smiley Work Phone: [facility] Work Phone: 12-06-2021 15:22-0400 Body mass index (BMI) [Ratio] 30.2 kg/m2 Dr. Ramone Smiley Work Phone: [facility] Work Phone: 12-06-2021 15:22-0400 Body weight 77.[address] Ramone Smiley Work Phone: [facility] Work Phone: 12-06-2021 15:22-0400 Diastolic blood pressure 84 mm[Hg] Dr. Ramone Smiley Work Phone: [facility] Work Phone: 12-06-2021 15:22-0400 Systolic blood pressure 122 mm[Hg] Dr. Ramone Smiley Work Phone: [facility] Work Phone: 12-06-2021 15:22-0400 Body height 160.[address] Ramone Smiley Work Phone: [facility] Work Phone: 12-06-2021 15:22-0400 Body mass index (BMI) [Ratio] 30.2 kg/m2 Dr. Ramone Smiley Work Phone: [facility] Work Phone: 12-06-2021 15:22-0400 Body weight 77.[address] Ramone Smiley Work Phone: [facility] Work Phone: 12-06-2021 15:22-0400 Diastolic blood pressure 84 mm[Hg] Dr. Ramone Smiley Work Phone: [facility] Work Phone: 12-06-2021 15:22-0400 Systolic blood pressure 122 mm[Hg] Dr. Ramone Smiley Work Phone: [facility] Work Phone: 12-04-2021 11:22-0400 Diastolic blood pressure 70 mm[Hg] Dr. Ramone Smiley Work Phone: [facility] Work Phone: 12-04-2021 11:22-0400 Systolic blood pressure 124 mm[Hg] Dr. Ramone Smiley Work Phone: [facility] Work Phone: 12-04-2021 11:22-0400 Diastolic blood pressure 70 mm[Hg] Dr. Ramone Smiley Work Phone: [facility] Work Phone: 12-04-2021 11:22-0400 Systolic blood pressure 124 mm[Hg] Dr. Ramone Smiley Work Phone: [facility] Work Phone: 12-02-2021 14:03-0400 Diastolic blood pressure 60 mm[Hg] Dr. Ramone Smiley Work Phone: [facility] Work Phone: 12-02-2021 14:03-0400 Systolic blood pressure 138 mm[Hg] Dr. Ramone Smiley Work Phone: [facility] Work Phone: 12-02-2021 14:03-0400 Diastolic blood pressure 60 mm[Hg] Dr. Ramone Smiley Work Phone: [facility] Work Phone: 12-02-2021 14:03-0400 Systolic blood pressure 138 mm[Hg] Dr. Ramone Smiley Work Phone: [facility] Work Phone: 01-13-2017 14:21-0400 BMI (Body Mass Index) 30.93 kg/m2 Zuleika Heaton [facility] Work Phone: 01-13-2017 14:21-0400 Body Temperature 98.2 [degF] Zuleika Heaton [facility] Work Phone: 01-13-2017 14:21-0400 Body weight 79.2 kg Zuleika Heaton [facility] Work Phone: 01-13-2017 14:21-0400 BP Diastolic 76 mm[Hg] Zuleika Heaton [facility] Work Phone: 01-13-2017 14:21-0400 BP Systolic 128 mm[Hg] Zuleika Heaton [facility] Work Phone: 01-13-2017 14:21-0400 Height 160.02 cm Zuleika Heaton [facility] Work Phone: 01-13-2017 14:21-0400 Pulse (Heart Rate) 70 /min Zuleika Heaton [facility] Work Phone: 01-13-2017 14:21-0400 Pulse Oximetry 96 % Zuleika Heaton [facility] Work Phone: 01-13-2017 14:21-0400 Respiratory Rate 16 /min Zuleika Heaton [facility] Work Phone: 01-13-2017 14:21-0400 Weight 79.2 kg Zuleika Heaton [facility] Work Phone: 10-09-2015 11:00-0500 BSA (Body Surface Area) 1.91 m2 Zuleika Heaton [facility] Work Phone: 08-29-2015 11:19-0500 Heart rate 109 /min Zuleika Heaton [facility] Work Phone: Encounters Encounter Date Encounter Type Care Provider Facility Start: 03-09-2025 Whitney SUGGS [facility] Work Phone: Start: 03-09-2025 ambulatory Ramone Smiley [facility] Start: 03-07-2025 ambulatory Ramone Smiley [facility] Start: 03-07-2025 Dr. Se Good MD -[facility] Start: 03-07-2025 End: 03-07-[address] Ramone Smiley MD Work Phone: -Cardiovascular Services Start: 03-07-2025 End: 03-07-2025 Whitney Cao PERSON[employer]ER[employer] SUPERVISOR-C -Cardiovascular Services Work Phone: Start: 03-07-2025 End: 03-07-2025 ambulatory Ramone Smiley Facility:[facility] Start: 03-04-2025 End: 03-04-2025 Dr. Ramone Smiley MD Work Phone: -Emergency Department Work Phone: Start: 03-04-2025 End: 03-04-2025 Emergency department patient visit Dr. Ramone Smiley MD Work Phone: -Emergency Department Start: 02-18-2025 End: 02-19-2025 Dr. Ramone Smiley MD Work Phone: -Emergency Department Work Phone: Start: 02-18-2025 End: 02-19-2025 Emergency department patient visit Dr. Ramone Smiley MD Work Phone: [facility] Work Phone: Start: 02-17-2025 Dr. Heydi Amaya MD -[facility] Work Phone: Start: 02-16-2025 Dr. Heydi Amaya MD -[facility] Work Phone: Start: 02-15-2025 End: 02-17-2025 ambulatory Nestor Bartlett Facility:[facility] Start: 02-15-2025 End: 02-17-[address] Ramone Smiley MD Work Phone: [facility] Work Phone: Start: 02-15-2025 End: 02-17-2025 Dr. Nestor Bartlett DO -[facility] Surgical 3 Work Phone: Start: 02-13-2025 Dr. Lucio Borden [facility] Work Phone: Start: 02-12-2025 Dr. Lucio Borden [facility] Work Phone: Start: 02-11-2025 Dr. Lucio Borden [facility] Work Phone: Start: 02-10-2025 Dr. Lucio Borden DO [facility] Work Phone: Start: 02-09-2025 ambulatory Lucio Multani y:[facility] Start: 02-09-2025 End: 02-13-2025 Evaluation and management of inpatient Dr. Ramone Smiley MD Work Phone: [facility] Work Phone: Start: 02-09-2025 End: 02-13-[address] [facility] Work Phone: Start: 02-07-2025 End: 02-07-[address] Ramone Smiley MD Work Phone: [facility] Work Phone: Start: 02-07-2025 End: 02-07-2025 Dr. Ramone Smiley MD -[facility] Start: 02-07-2025 End: 02-07-2025 ambulatory Ramone Smiley Facility:[facility] Start: 02-06-2025 Dr. Lucio Borden DO [facility] Work Phone: Start: 02-05-2025 Dr. Lucio Borden [facility] Work Phone: Start: 02-04-2025 Dr. Lucio Borden [facility] Work Phone: Start: 02-04-2025 ambulatory Lucio Multani y:[facility] Start: 02-04-2025 End: 02-06-2025 Evaluation and management of inpatient Dr. Ramone Smiley MD Work Phone: [facility] Work Phone: Start: 02-04-2025 End: 02-06-2025 Dr. Lucio Tereletsky DO -Progressive Care Unit Work Phone: Start: 01-31-2025 End: 01-31-2025 Whitney SUGGS -[facility] Work Phone: Start: 01-31-2025 End: 01-31-[address] Ramone Smiley MD Work Phone: [facility] Work Phone: Start: 01-26-2025 End: 01-26-2025 Dr. Ramone Smiley MD Work Phone: -Emergency Department Work Phone: Start: 01-26-2025 End: 01-26-2025 Emergency department patient visit Dr. Ramone Smiley MD Work Phone: [facility] Work Phone: Start: 01-24-2025 Dr. Melba Hartmann MD - [facility] Work Phone: Start: 01-23-2025 Dr. Becca Silverman MD -[facility] Start: 01-23-2025 Dr. Melba Hartmann MD - [facility] Work Phone: Start: 01-22-2025 Dr. Melba Hartmann MD - [facility] Work Phone: Start: 01-21-2025 Dr. Melba Hartmann MD - [facility] Work Phone: Start: 01-20-2025 ambulatory Ramone Smiley Facility:[facility] Start: 01-20-2025 Dr. Marcelina Soto [facility] Start: 01-20-2025 ambulatory Sandeep Babb ty:[facility] Start: 01-20-2025 End: 01-24-2025 Evaluation and management of inpatient Dr. Ramone Smiley MD Work Phone: [facility] Work Phone: Start: 01-20-2025 End: 01-24-2025 Dr. Melba Hartmann MD -Progressive Care Unit Work Phone: Start: 01-19-2025 End: 01-19-[address] Ramone Smiley MD Work Phone: [facility] Work Phone: Start: 01-19-2025 End: 01-19-2025 Dr. Ramone Smiley MD -Laboratory [facility] Start: 01-19-2025 End: 01-19-2025 ambulatory [facility] Facility:[facility] Start: 01-15-2025 End: 01-15-2025 Dr. Jeevan Yoder [...] Work Phone: Start: 11-21-2024 ambulatory Ramone Smiley Facility:[facility] Start: 11-21-[address] Ramone Smiley MD -Physical Therapy Work Phone: Start: 11-21-2024 Dr. Ramone Smiley MD -Phys ical Therapy Work Phone: Start: 09-27-2024 End: 09-27-[address] Ramone Smiley MD -Laboratory, [facility] Start: 09-27-2024 End: 09-27-2024 Dr. Ramone Smiley MD -Laboratory [facility] Start: 09-27-2024 End: 09-27-2024 ambulatory Ramone Smiley Facility:[facility] Start: 07-19-2024 End: 07-19-2024 ambulatory [facility] Facility:[facility] Start: 06-19-2024 End: 06-20-2024 Emergency department patient visit Billy Kothari Facility:[facility] Start: 05-30-2024 End: 05-30-2024 Emergency department patient visit Ramone Smiley Facility:[facility] Start: 05-18-2024 End: 05-18-2024 ambulatory Jason BHATTI Facility:[facility] Start: 04-18-2024 End: 04-18-2024 ambulatory Ramone Smiley Facility:[facility] Start: 03-25-2024 End: 03-25-2024 ambulatory Ramone Smiley Facility:[facility] Start: 12-30-2023 Non-patient / Non-visit Dr. Richar Smiley Work Phone: [facility] Work Phone: Start: 12-29-2023 Non-patient / Non-visit Dr. Richar Smiley Work Phone: [facility] Work Phone: Start: 12-28-2023 Non-patient / Non-visit Dr. Richar Smiley Work Phone: [facility] Work Phone: Start: 12-27-2023 End: 12-30-2023 Evaluation and management of inpatient [facility]-Medical Surgical 3 Work Phone: Start: 10-26-2023 End: 10-26-[address] Ramone Smiley Work Phone: [facility] Work Phone: Start: 10-26-2023 End: 10-26-[address] Ramone Smiley Work Phone: [facility] Start: 08-17-2023 Non-patient / Non-visit Dr. Richar Smiley Work Phone: [facility] Work Phone: Start: 08-16-2023 Non-patient / Non-visit Dr. Richar Smiley Work Phone: [facility] Work Phone: Start: 08-15-2023 Non-patient / Non-visit Dr. Richar Smiley Work Phone: [facility] Work Phone: Start: 08-14-2023 Non-patient / Non-visit Dr. Richar Smiley Work Phone: [facility] Work Phone: Start: 08-13-2023 End: 08-17-2023 Evaluation and management of inpatient Dr. Ramone Smiley Work Phone: [facility]-Progressive Care Unit Work Phone: Start: 08-07-2023 End: 08-07-2023 Emergency department patient visit Dr. Ramone Smiley Work Phone: [facility]-Emergency Department Work Phone: Start: 07-18-2023 End: 07-19-2023 Emergency department patient visit Dr. Ramone Smiley Work Phone: [facility]-Emergency Department Work Phone: Start: 07-15-2023 End: 07-15-[address] Ramone Smiley Work Phone: [facility] Work Phone: Start: 06-01-2023 End: 06-01-[address] [facility] Work Phone: Start: 05-27-2023 End: 05-27-[address] [facility] [place] Work Phone: Start: 05-15-2023 End: 05-15-[address] Ramone Smiley Work Phone: [facility]-Radiology, [place] Work Phone: Start: 03-24-2023 End: 03-24-2023 ambulatory [facility] Work Phone: Start: 03-24-2023 End: 03-24-2023 Patient encounter procedure [facility]-Ultrasound, [facility] Work Phone: Start: 02-05-2023 End: 02-05-2023 ambulatory [facility] Work Phone: Start: 02-05-2023 End: 02-05-2023 Patient encounter procedure [facility]-Ultrasound, [facility] Start: 01-28-2023 End: 01-28-2023 Emergency department patient visit [facility]-Emergency Department Start: 01-28-2023 End: 01-28-2023 ambulatory [facility] Work Phone: Start: 01-28-2023 End: 01-28-2023 Patient encounter procedure [facility] Start: 12-09-2022 End: 12-09-2022 ambulatory [facility] Work Phone: Start: 12-09-2022 End: 12-09-2022 Patient encounter procedure [facility] Start: 08-13-2022 End: 08-13-2022 ambulatory [facility] Work Phone: Start: 08-13-2022 End: 08-13-2022 Patient encounter procedure [facility]-Outpatient Breast Imaging Start: 07-14-2022 End: 07-14-2022 Emergency department patient visit [facility]-Emergency Department Start: 05-07-2022 End: 05-07-2022 ambulatory Lashondayumi Iraheta APRN.SHIPPING AND RECEIVING CLERK Work Phone: Hematology/Oncology Comment on above: Iron deficiency anem ia due to chronic blood loss (Primary Dx) Start: 05-07-2022 End: 05-07-2022 Patient encounter procedure 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 APRN.SHIPPING AND RECEIVING CLERK Work Phone: [facility] Start: 02-27-2022 End: 02-27-[address] Ramone Smiley Work Phone: [facility], [facility] Start: 02-26-2022 End: 02-26-[address] Ramone Smiley Work Phone: [facility] Start: 02-10-2022 Telephone encounter Joseph sanders DO Work Phone: Hematology/Oncology Comment on above: Results (CBC and iro n levels) Start: 01-31-2022 Orders Only Joseph Lim Work Phone: Hematology/Oncology Comment on above: Iron deficiency anem ia due to chronic blood loss (Primary Dx) Start: 12-17-2021 End: 12-17-[address] Ramone Smiley Work Phone: [facility] Start: 12-10-2021 End: 12-10-[address] Ramone Smiley Work Phone: [facility] Start: 12-06-2021 End: 12-06-[address] Ramone Smiley Work Phone: [facility] Start: 12-04-2021 End: 12-04-[address] Ramone Smiley Work Phone: [facility] Start: 12-02-2021 End: 12-02-[address] Ramone Smiley Work Phone: [facility]-Laboratory, Specimen Start: 12-02-2021 End: 12-02-[address] Ramone Smiley Work Phone: [facility] Start: 09-29-2021 Telephone encounter Joseph sanders DO Work Phone: Hematology/Oncology Comment on above: Results; Follow Up Start: 09-13-2021 End: 09-13-[address] Ramone Smiley Work Phone: [facility]-Nuclear Medicine, [facility] Start: 08-21-[address] Ramone Smiley Work Phone: [facility]-Outpatient Breast Imaging Start: 08-12-2021 End: 08-12-[address] Ramone Smiley Work Phone: [facility] Start: 03-14-2021 Telephone encounter Joseph Lott marilyn RAYMUNDO Work Phone: Hematology/Oncology Comment on above: Results Start: 01-18-2018 Ambulatory LEE ALAMO [facility] Procedures Date Procedure Procedure Detail Performing Clinician Start: 03-07-2025 Cardiovascular stres s test using pharmacologic stress agent Dr. Ramone Smiley MD Work Phone: Start: 03-04-2025 Blood count smear mc rscp w/mnl difrntl wbc count Dr. Ramone Smiley MD Work Phone: Start: 03-04-2025 Calculation of international normalized ratio Dr. Ramone Smiley MD Work Phone: Start: 03-04-[address] Ramone Smiley MD Work Phone: Start: 03-04-2025 Mean corpuscular hem oglobin concentration determination Dr. Ramone Smiley MD Work Phone: Start: 03-04-2025 Nucleated red blood cell count procedure Dr. Ramone Smiley MD Work Phone: Start: 03-04-2025 Platelet mean volume determination Dr. Ramone Smiley MD Work Phone: Start: 03-04-2025 Urine microscopy: red cells Dr. Ramone Smiley MD Work Phone: Start: 03-04-2025 Urnls dip stick/tabl et reagent auto microscopy Dr. Ramone Smiley MD Work Phone: Start: 03-04-2025 Computed tomography of abdomen and pelvis with intravenous contrast Dr. Ramone Smiley MD Work Phone: Start: 03-04-[address] Ramone Smiley MD Work Phone: Start: 03-04-[address] Ramone Smiley MD Work Phone: Start: 02-18-2025 Plain chest X-ray Dr. Yoni [...] mc rscp w/mnl difrntl wbc count Dr. aRmone Smiley MD Work Phone: Start: 02-15-2025 Estimated [...] mc rscp w/mnl difrntl wbc count Dr. Ramnoe Smiley MD Work Phone: Start: 01-26-2025 Estimated [...] chest, PA a nd lateral views Dr. Raomne Smiley MD Work Phone: Start: 01-15-2025 Blood [...] Work Phone: Start: 09-27-2024 BUN/Creatinine ratio Dr Jessu Smiley MD Work Phone: Start: 09-27-2024 Mean [...] Smiley Work Phone: Start: 08-21-2021 Screening mammography D niels Smiley Work Phone: Start: 07-01-2020 H/O: surgery H/O dilation a nd curettage Dr. 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 Ramone Smiley Work Phone: Investigation of transfusion reaction Dr. Ramone Smiley Work Phone: Microbial culture, routine D niels Smiley Work Phone: Urine culture Plan of Treatment Date Care Activity Detail Author Start: 03-07-2025 Cardiovascular stres s test using pharmacologic stress agent [facility] Start: 03-07-2025 NM Heart Views W str ess and W radionuclide IV [facility] Start: 03-04-2025 [facility] Start: 03-04-2025 End: 03-04-2025 [facility] Start: 03-04-2025 Blood culture [facility] Start: 02-19-2025 [facility] Start: 02-18-2025 [facility] Start: 02-17-2025 Patient discharge [facility] Start: 02-17-2025 [facility] Start: 02-16-2025 End: 02-16-2025 [facility] Start: 02-15-2025 [facility] Start: 02-15-2025 Following clinical pathway protocol [facility] Start: 02-15-2025 Ambulation without limitation [facility] Start: 02-15-2025 Assessment of risk o f venous thromboembolism [facility] Start: 02-15-2025 Care regimes management [facility] Start: 02-15-2025 Insertion of cathete r into peripheral vein [facility] Start: 02-15-2025 Notification of physician [facility] Start: 02-15-2025 Oxygen therapy [facility] Start: 02-15-2025 Providing care accor ding to standard [facility] Start: 02-15-2025 Referral to occupati onal therapist [facility] Start: 02-15-2025 Referral to service [facility] Start: 02-15-2025 [facility] Start: 02-15-2025 Verification routine [facility] Start: 02-15-2025 Admission procedure [facility] Start: 02-15-2025 Hospital admission, emergency, from emergency room, medical nature [facility] Start: 02-15-2025 [facility] Start: 02-15-2025 End: 02-15-2025 [facility] Start: 02-15-2025 Inhalation therapy procedure [facility] Start: 02-13-2025 Patient discharge [facility] Start: 02-11-2025 Inhalation therapy procedure [facility] Start: 02-10-2025 [facility] Start: 02-10-2025 Referral to service [facility] Start: 02-09-2025 Care regimes management [facility] Start: 02-09-2025 Notification of physician [facility] Start: 02-09-2025 [facility] Start: 02-09-2025 Following clinical pathway protocol [facility] Start: 02-09-2025 Ambulation without limitation [facility] Start: 02-09-2025 Assessment of risk o f venous thromboembolism [facility] Start: 02-09-2025 Catheterization of vein [facility] Start: 02-09-2025 Insertion of cathete r into peripheral vein [facility] Start: 02-09-2025 Oxygen therapy [facility] Start: 02-09-2025 Providing care accor ding to [facility] Start: 02-09-2025 Referral to occupati onal therapist [facility] Start: 02-09-2025 Referral to service [facility] Start: 02-09-2025 [facility] Start: 02-09-2025 Verification routine [facility] Start: 02-09-2025 Admission procedure [facility] Start: 02-09-2025 Hospital admission, emergency, from emergency room, medical nature [facility] Start: 02-09-2025 [facility] Start: 02-09-2025 Patient referral to dietitian [facility] Start: 02-06-2025 Patient discharge [facility] Start: 02-06-2025 Referral to service [facility] Start: 02-05-2025 [facility] Start: 02-04-2025 End: 02-04-2025 [facility] Start: 02-04-2025 Care regimes management [facility] Start: 02-04-2025 Notification of physician [facility] Start: 02-04-2025 Following clinical pathway protocol [facility] Start: 02-04-2025 Care planning and pr oblem solving actions [facility] Start: 02-04-2025 Ambulation without limitation [facility] Start: 02-04-2025 Assessment of risk o f venous thromboembolism [facility] Start: 02-04-2025 Catheterization of vein [facility] Start: 02-04-2025 Inhalation therapy procedure [facility] Start: 02-04-2025 Insertion of cathete r into peripheral vein [facility] Start: 02-04-2025 Oxygen therapy [facility] Start: 02-04-2025 Providing care accor ding to standard [facility] Start: 02-04-2025 [facility] Start: 02-04-2025 Hospital admission, emergency, from emergency room, medical nature [facility] Start: 02-04-2025 Verification routine [facility] Start: 02-04-2025 Admission procedure [facility] Start: 02-04-2025 [facility] Start: 02-04-2025 [facility] Start: 01-26-2025 [facility] Start: 01-24-2025 Referral to service [facility] Start: 01-24-2025 Patient discharge [facility] Start: 01-21-2025 [facility] Start: 01-21-2025 Referral to licensed optician [facility] Start: 01-20-2025 Oxygen therapy [facility] Start: 01-20-2025 Blood culture [facility] Start: 01-20-2025 Notification of physician [facility] Start: 01-20-2025 [facility] Start: 01-20-2025 End: 01-20-2025 [facility] Start: 01-20-2025 Application of intermittent pneumatic compression device [facility] Start: 01-20-2025 Following clinical pathway protocol [facility] Start: 01-20-[address] [facility] Start: 01-20-2025 Catheterization of vein [facility] Start: 01-20-2025 Notification of physician [facility] Start: 01-20-2025 Vital signs measurements [facility] Start: 01-20-2025 Admission procedure [facility] Start: 01-20-2025 End: 01-20-2025 [facility] Start: 01-20-2025 Care regimes management [facility] Start: 01-20-2025 Inhalation therapy procedure [facility] Start: 01-20-2025 Patient referral to dietitian [facility] Start: 01-15-2025 [facility] Start: 01-15-2025 [facility] Start: 01-07-2025 [facility] Start: 12-30-2023 Patient discharge [facility] Start: 12-30-2023 Inhalation therapy procedure [facility] Start: 12-28-2023 Application of intermittent pneumatic compression device [facility] Start: 12-28-2023 Provision of overbed trapeze [facility] Start: 12-28-2023 Recommendation to continue with treatment [facility] Start: 12-28-2023 Ambulation therapy management [facility] Start: 12-28-2023 Application of device [facility] Start: 12-28-2023 Assessment of risk o f venous thromboembolism [facility] Start: 12-28-2023 Catheterization of vein [facility] Start: 12-28-2023 Exercises [facility] Start: 12-28-2023 Following clinical pathway protocol [facility] Start: 12-28-2023 Introduction of urin david catheter [facility] Start: 12-28-2023 Measuring intake and output [facility] Start: 12-28-2023 Neurovascular assessment [facility] Start: 12-28-2023 Patient education [facility] Start: 12-28-2023 Procedure discontinued [facility] Start: 12-28-2023 Provision of activit y privileges [facility] Start: 12-28-2023 Referral to occupati onal therapist [facility] Start: 12-28-2023 Referral to service [facility] Start: 12-28-2023 Vital signs measurements [facility] Start: 12-28-2023 Wound care [facility] Start: 12-28-2023 [facility] Start: 12-28-2023 Blood chemistry [facility] Start: 12-28-2023 Complete blood count [facility] Start: 12-28-2023 Following clinical pathway protocol [facility] Start: 12-28-2023 Assessment of risk o f venous thromboembolism [facility] Start: 12-28-2023 Care regimes management [facility] Start: 12-28-2023 Consultation [facility] Start: 12-28-2023 Incentive spirometry [facility] Start: 12-28-2023 Insertion of cathete r into peripheral vein [facility] Start: 12-28-2023 Notification of physician [facility] Start: 12-28-2023 Oxygen therapy [facility] Start: 12-28-2023 Providing care accor ding to [facility] Start: 12-28-2023 Provision of activit y privileges [facility] Start: 12-28-2023 Referral to occupati onal therapist [facility] Start: 12-28-2023 Referral to service [facility] Start: 12-28-2023 [facility] Start: 12-27-2023 Verification routine [facility] Start: 12-27-2023 Admission procedure [facility] Start: 08-17-2023 Referral to service [facility] Start: 08-17-2023 Patient discharge [facility] Start: 08-16-2023 [facility] Start: 08-13-2023 Following clinical pathway protocol [facility] Start: 08-13-2023 Assessment of risk o f venous thromboembolism [facility] Start: 08-13-2023 Care regimes management [facility] Start: 08-13-2023 Insertion of cathete r into peripheral vein [facility] Start: 08-13-2023 Measuring intake and output [facility] Start: 08-13-2023 Notification of physician [facility] Start: 08-13-2023 Providing care accor ding to [facility] Start: 08-13-2023 Provision of activit y privileges [facility] Start: 08-13-2023 Referral to occupati onal therapist [facility] Start: 08-13-2023 Referral to service [facility] Start: 08-13-2023 [facility] Start: 08-13-2023 Admission procedure [facility] Start: 08-13-2023 Verification routine [facility] Start: 08-13-2023 Bacteria identified in Blood by Culture Blood Culture [facility] Start: 08-13-2023 Bacteria identified in Urine by Culture Urine Culture [facility] Start: 08-13-2023 Hospital admission, emergency, from emergency room, medical nature [facility] Start: 08-13-2023 [facility] Start: 08-13-2023 End: 08-13-2023 Blood culture [facility] Start: 08-13-2023 Inhalation therapy procedure [facility] Start: 08-13-2023 Patient referral to dietitian [facility] Start: 08-07-2023 [facility] Start: 07-19-2023 End: 07-19-2023 [facility] Start: 07-18-2023 Measurement of occul t blood in stool specimen using immunoassay [facility] Start: 07-18-2023 Bacteria identified in Urine by Culture Urine Culture [facility] Start: 05-07-2022 BP CONTROLLED (<130/80) BP CONTROLLE D (<130/80) [facility] Start: 05-01-2022 Influenza vaccination C [facility] Start: 03-28-2022 COVID-19 VACCINE (4 - Booster for Moderna series) COVID-19 VACCINE (4 - Booster for Moderna series) [facility] Start: 09-29-2021 End: 09-29-2022 MONOCLONAL PROTEIN, SERUM (BLOOD) MONOCLONAL PROTEIN, SERUM (BLOOD) Lab Routine Anemia, unspecified type Expected: 09/29/2021, Expires: 09/29/2022 [facility] Work Phone: Comment on above: Expected: 09/29/2021 , Expires: 09/29/2022 Start: 09-29-2021 End: 09-29-2022 PROTEIN ELECTROPHORESIS SERUM W/INTERP PROTEIN ELECTROPHORESIS SERUM W/INTERP Lab Routine Anemia, unspecified type Expected: 09/29/2021, Expires: 09/29/2022 [facility] Work Phone: Comment on above: Expected: 09/29/2021 , Expires: 09/29/2022 Start: 08-31-2021 ADVANCE DIRECTIVE DISCUSSION ADVANCE DIRECTIVE DISCUSSION [facility] Start: 05-16-2021 COVID-19 VACCINE (3 - Booster for Moderna series) COVID-19 VACCINE (3 - Booster for Moderna series) [facility] Start: 05-04-2018 Urine microalbumin profile DTAP,TDAP,TD (2 - Td or Tdap) [facility] Start: 08-16-2016 3 comp foot exam completed DIABETIC FOOT EXAM [facility] Start: 10-09-2015 End: 04-02-2016 Follow Up Appt 6 months Follow Up Appt 6 months [facility] Work Phone: Start: 10-09-2015 End: 04-02-2016 MMM MMM [facility] Work Phone: Start: 08-29-2015 End: 08-29-2015 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 [facility] Work Phone: Start: 08-29-2015 End: 08-29-2015 Electrocardiogram, complete EKG (In office) [facility] Work Phone: Start: 08-29-2015 End: 08-29-2015 Follow Up Appt 6 weeks Follow Up Appt 6 weeks [facility] Work Phone: Start: 07-01-2014 Hemoglobin A1c/Hemoglobin.total in Blood HBA1C [facility] Start: 06-25-2014 Hepatitis B surface antibody level LDL CHOLESTEROL [facility] Start: 06-17-2014 Hepatitis C antibody , confirmatory test DILATED RETINAL EXAM [facility] Start: 02-12-2013 PNEUMOCOCCAL: 65+ (2 - PCV) PNEUMOCOCCAL: 65+ (2 - PCV) [facility] Start: 02-12-2013 PNEUMOCOCCAL: 65+ (3 - PCV) PNEUMOCOCCAL: 65+ (3 - PCV) [facility] Start: 02-18-2012 SHINGRIX VACCINE (1 of 2) MORENO GRIX VACCINE (1 of 2) [facility] Start: 02-18-2012 SHINGRIX VACCINE (2 of 3) MORENO GRIX VACCINE (2 of 3) [facility] Start: 01-02-1962 ANNUAL PCP TEAM DAIRY QUALITY ASSURANCE OFFICER ERIS DISEASE VISIT ANNUAL PCP TEAM CHRONIC DISEASE VISIT [facility] Start: 01-02-1962 BP CONTROLLED (<130/80) BP CONTROLLE D (<130/80) [facility] Start: 01-02-1962 HEPATITIS C SCREENING HEPATITIS C SC REENING [facility] Start: 1956 Adult depression screening assessment DEPRESSION SCREENING [facility] Anion gap measurement [facility] Bacteria identified in Sputum by Respiratory culture [facility] BUN/Creatinine ratio [facility] Calcium [Mass/volume ] in Serum or Plasma [facility] Carbon dioxide, tota l [Moles/volume] in Serum or Plasma [facility] End: 01-31-2023 CBC W Auto Differential panel - Blood CBC + DIFF Lab STAT Iron deficiency anemia due to chronic blood loss Every 3 months for 4 Occurrences starting 01/31/2022 until 01/31/2023 [facility] Work Phone: Comment on above: Every 3 months for 4 Occurrences starting 01/31/2022 until 01/31/2023 End: 09-29-2022 CBC W Auto Differential panel - Blood CBC + DIFF Lab Routine Anemia, unspecified type 1 Occurrences starting 09/29/2021 until 09/29/2022 [facility] Work Phone: Comment on above: 1 Occurrences starti ng 09/29/2021 until 09/29/2022 Chloride [Moles/volu me] in Serum or Plasma [facility] End: 09-29-2022 Comprehensive metabolic 2000 panel - Serum or Plasma COMP METABOLIC PANEL Lab Routine Anemia, unspecified type 1 Occurrences starting 09/29/2021 until 09/29/2022 [facility] Work Phone: Comment on above: 1 Occurrences starti ng 09/29/2021 until 09/29/2022 Creatinine [Moles/vo lume] in Serum or Plasma [facility] Erythrocyte mean corpuscular volume determination [facility] End: 01-31-2023 FERRITIN BLD FERRITIN BLD Lab Routine Iron deficiency anemia due to chronic blood loss Every 3 months for 4 Occurrences starting 01/31/2022 until 01/31/2023 [facility] Work Phone: Comment on above: Every 3 months for 4 Occurrences starting 01/31/2022 until 01/31/2023 Glucose [Mass/volume ] in Serum or Plasma [facility] Hematocrit [Volume Fraction] of Blood [facility] Hemoglobin [Mass/vol ume] in Blood [facility] Hemoglobin A1c/Hemoglobin.total in Blood [facility] End: 01-31-2023 IRON + TIBC IRON + TIBC Lab Routine Iron deficiency anemia due to chronic blood loss Every 3 months for 4 Occurrences starting 01/31/2022 until 01/31/2023 [facility] Work Phone: Comment on above: Every 3 months for 4 Occurrences starting 01/31/2022 until 01/31/2023 Leukocytes [#/volume ] in Blood [facility] Mean corpuscular hemoglobin concentration determination [facility] Mean corpuscular hemoglobin determination [facility] Measurement of renal function [facility] Microorganism identi fied in Unspecified specimen by Culture [facility] Microscopic observat ion [Identifier] in Unspecified specimen by Gram stain [facility] NM Heart Views W str ess and W radionuclide IV [facility] Patient Education [facility] Work Phone: Patient referral [facility] Work Phone: Platelets [#/volume] in Blood [facility] Potassium [Moles/vol ume] in Serum or Plasma [facility] Procalcitonin [Mass/volume] in Serum or Plasma by Immunoassay [facility] Red blood cell count [facility] Red cell distributio n width determination [facility] Sodium [Moles/volume ] in Serum or Plasma [facility] Troponin T.cardiac [Mass/volume] in Serum or Plasma by High sensitivity method [facility] Troponin T.cardiac [Mass/volume] in Serum or Plasma by High sensitivity method [facility] Urea nitrogen [Mass/volume] in Serum or Plasma [facility] Urine culture [facility] US Heart limited [facility] Immunizations Immunization Date Immunization Notes Care Provider Larissa mixon 07-03-2022 influenza, injectabl e, quadrivalent, preservative free Dr. Ramone Smiley MD Work Phone: [facility] 11-26-2021 Covid (Moderna) Dr. Ramone leon MD Work Phone: [facility] 08-22-2015 pneumococcal conjuga te vaccine, [address] Ramone Smiley MD Work Phone: [facility] 07-12-2012 influenza virus vacc ine, unspecified formulation Joseph Rolle DO Work Phone: [facility] 02-13-2012 pneumococcal polysaccharide vaccine, 23 valent Joseph Rolle DO Work Phone: [facility] 12-24-2011 zoster vaccine, live Joseph Chen chatterjee DO Work Phone: [facility] 06-02-2011 influenza virus vacc ine, unspecified formulation Joseph Rolle DO Work Phone: [facility] 08-09-2010 influenza virus vacc jcarlos, unspecified formulation Joseph Rolle DO Work Phone: [facility] 05-30-2009 influenza virus vacc ine, unspecified formulation Joseph Rolle DO Work Phone: [facility] 09-07-2008 influenza virus vacc ine, unspecified formulation Joseph Rolle DO Work Phone: [facility] Work Phone: 05-04-2008 tetanus toxoid, redu octavio diphtheria toxoid, and acellular pertussis vaccine, adsorbed Joseph Rolle DO Work Phone: [facility] Work Phone: 06-28-2007 influenza virus vacc jcarlos, unspecified formulation Joseph Rolle DO Work Phone: [facility] Work Phone: 08-31-2005 pneumococcal polysaccharide vaccine, 23 valent Joseph Rolle DO Work Phone: [facility] Work Phone: Payers Date Payer Category Payer Self-pay [id number] 2017 Medicare HUMANA MEDICARE HUMANA MEDICARE PPO [id number] 2017-Present [phone] [place] [address] PPO [id number] 2017 Medicare HUMANA MEDICARE HUMANA MEDICARE PPO [id number] 2017-Present [phone] [place], [place] [address] PPO [id number] 2016 Medicare [id number] Private Health Insurance Unknown [id number] 2.16.840.1.771718.3.579. 2.462 Unknown [id number] 2.840.1.341567.3.579. 2.462 Unknown [id number] 2.16840.1.908554.3.579. 2.462 Unknown [id number] 2.840.1.770845.3.579. 2.462 Unknown [id number] 2.840.1.222473.3.579. 2.462 Unknown [id number] 2.840.1.286338.3.579. 2.462 Unknown [id number] 2.840.1.464683.3.579. 2.462 Unknown [id number] 2.840.1.948531.3.579. 2.462 Unknown [id number] 2.840.1.937238.3.579. 2.462 Unknown [id number] 2.840.1.194471.3.579. 2.462 Unknown [id number] 2.840.1.187904.3.579. 2.462 Unknown [id number] 2.840.1.846728.3.579. 2.462 Unknown [id number] 2.840.1.138814.3.579. 2.462 Unknown [id number] 2.840.1.011303.3.579. 2.462 Unknown [id number] 2.840.1.771057.3.579. 2.462 Unknown [id number] 2.840.1.223526.3.579. 2.462 Unknown [id number] 2.840.1.277769.3.579. 2.462 Unknown [id number] 2.840.1.030111.3.579. 2.462 Unknown [id number] 2.840.1.169276.3.579. 2.462 Unknown [id number] 2.840.1.871318.3.579. 2.462 Unknown [id number] 2.840.1.775901.3.579. 2.462 Unknown [id number] 2.840.1.016623.3.579. 2.462 Unknown [id number] 2.840.1.835606.3.579. 2.462 Unknown [id number] 2.840.1.883981.3.579. 2.462 Unknown [id number] 2.840.1.340295.3.579. 2.462 Unknown [id number] 2.840.1.514526.3.579. 2.462 Unknown [id number] 2.840.1.454044.3.579. 2.462 Unknown [id number] 2.840.1.596796.3.579. 2.462 Unknown [id number] 2.840.1.390743.3.579. 2.462 Unknown [id number] 2.840.1.340399.3.579. 2.462 Unknown [id number] 2.840.1.915040.3.579. 2.462 Unknown [id number] 2.840.1.847117.3.579. 2.462 Unknown [id number] 2.840.1.642053.3.579. 2.462 Unknown [id number] .840.1.095184.3.579. 2.462 Unknown [id number] 2.840.1.959515.3.579. 2.462 Unknown [id number] 2.840.1.894768.3.579. 2.462 Unknown [id number] 2.840.1.444204.3.579. 2.462 Unknown [id number] 2.16.840.1.639219.3.579. 2.462 Unknown [id number] 2.16.840.1.116037.3.579. 2.462 Unknown [id number] 2.16.840.1.733673.3.579. 2.462 Unknown [id number] 2..840.1.924000.3.579. 2.462 Social History Date Type Detail Facility Start: 12-06-2021 End: 08-13-2023 Tobacco smoking status [facility] Unknown if ever smoked [facility] Start: 12-02-2019 None [facility] Start: 12-02-2019 Spouse/ Signif icant Other [facility] Start: 07-06-2020 Non-smoker [facility] Start: 1945 Sex Assigned At Female [facility] Start: 02-03-2012 End: 03-04-2025 Tobacco smoking status NJIS Ex-smoker [facility] End: 01-30-2012 History of tobacco use Current smoker [facility] End: 01-30-2012 History of tobacco use Cigarette Smoker [facility] Start: 02-03-2012 End: 03-22-2012 Cigarettes smoked current (pack per day) - Reported 0.5 [facility] Start: 02-03-2012 End: 03-22-2012 Tobacco use and exposure Smokeless tobacco non-user [facility] Start: 05-07-2021 End: 05-07-2022 Alcohol intake Current non-drinker of alcohol (finding) [facility] Start: 1945 Sex Assigned At Not on file [facility] Start: 10-05-2021 End: 11-04-2021 Exposure to SARS-CoV-2 (event) Not sure [facility] NEGATED: Highlighted row [facility] Medical Equipment Procedure Code Equipment Code Equipment Origin al Text Equipment Identifier Dates 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 Start: 12-28-2023 Primary uncemented hemiarthroplasty of hip unitrax neck adjustment sleeve FDA Start: 12-28-2023 Primary uncemented hemiarthroplasty of hip ([id number]) [id number] FDA Start: 12-28-2023 Primary uncemented hemiarthroplasty of [...] Assessment Result Facility 02-17-2025 Functional status Chair [facility] Work Phone: 02-16-2025 Functional status Well [facility] Work Phone: 02-13-2025 Functional status Chair [facility] Work Phone: 02-06-2025 Functional status Chair [facility] Work Phone: 01-24-2025 Functional status Ambulates [facility] Work Phone: 01-23-2025 Functional status Fair [facility] Work Phone: 12-30-2023 Functional status Bedrest [facility] Work Phone: 08-17-2023 Functional status Ambulates [facility] Work Phone: Mental Status Date Assessment Result Facility 02-17-2025 Cognitive function Voice/Name [facility] Work Phone: 02-13-2025 Cognitive function Voice/Name [facility] Work Phone: 02-06-2025 Cognitive function Voice/Name [facility] Work Phone: 01-24-2025 Cognitive function Voice/Name [facility] Work Phone: 12-30-2023 Cognitive function Voice/Name [facility] Work Phone: 08-17-2023 Cognitive function Voice/Name [facility] Work Phone: 08-13-2023 Cognitive function Level Of Cons ciousness Awake;Alert;Appropriate;Follow s Commands [facility] Work Phone: 01-28-2023 Cognitive function Level Of Cons ciousness Awake;Alert;Appropriate;Follow s Commands [facility] Work Phone: Clinical Notes 03-14-2021 to 03-04-2025 Note Date & Type Note Facility 03-04-2025 Radiology Diagnostic study note [facility] 03-04-2025 Discharge summary Note Date/Time March 04, 2025 11:14pm [facility] Medical Records Department [address] [place] [id number] Emergency Department Summary 03/04/25 MR#: [id number] Acct: [id number] Name: OLGA DONALDSON Rep #:[id number] : 1945 80 From: Jeevan Yoder DO PCP: Dr. Ramone Smiley MD Status:REG ER Location: ED HPI History of Present Illness Chief Complaint: Serna C/O Narrative Narrative: Patient is a 80-year-old female with past medical history of diabetes, COPD chronically on 2 L nasal cannula, GERD, anxiety, depression, hyperlipidemia, neurogenic bladder self caths, aortic stenosis, chronic kidney disease stage III, peripheral arterial disease who presents to the emergency department with achief complaint right flank pain and wanting her Serna catheter out. States that [facility] and states that she told the staff there that she self caths and wanted the Serna catheter removed and she was told that they do not remove Serna catheters therefore she came here for further evaluation management. Patient states that she has been having intermittent right-sided flank pain that comes and goes. Patient denies any injuries or trauma. Patient otherwise has no complaints and feels at her baseline. Patient denies any history of kidney stones. [facility] Medical History History of diabetes mellitus COPD [...] 01/15/25 01/15/25 History 0.005 % eye drops ([place]) psyllium husk 0.4 gram capsule 0.4 g PO DAILY constipa tion 01/15/25 01/15/25 History (Daily Fiber) tirzepatide 5 mg/0.5 mL 5 mg subcut QWEEK diabetes 0 01/15/25 Unknown History subcutaneous pen injector ([place]) potassium chloride 20 mEq 20 meq PO [...] BREAKFAST #15 t abs 02/17/25 Unknown Rx ciprofloxacin HCl 500 mg tablet 500 mg PO Q12H 5 days #10 tabs 03/04/25 Unknown Rx Allergy/AdvReac Type Severity Reaction Status Date / Time adhesive tape (tape) Allergy NEEDS Verified 03/04/25 18:37 FOLLOW-UP cephalexin monohydrate (From Allergy Rash Verified 03/04/25 18:37 Keflex) clopidogrel bisulfate (From Allergy Other Verified 03/04/25 18:37 Plavix) amoxicillin AdvReac YEAST Verified 03/04/25 18:37 INFECTION Family History Daughter Breast cancer Father [...] ROS ROS ED ROS Narrative Constitutional: Denies any fevers, chills, headaches Cardiovascular: Denies chest pain Respiratory: Denies coughing wheezing shortness of breath Abdomen: Complains of right flank pain intermittently as noted above denies abdominal pain nausea vomit diarrhea : States that she wants her Serna catheter removed Neurological: Denies any new numbness, weakness, tingling Skin: Denies any rashes or lesions EXAM Physical Exam Narrative Exam Narrative: General: Patient lying in bed rest comfortably did not appear to be in acute distress Head: Atraumatic, normocephalic Eyes: PERRL bilaterally, EOMI blood, no conjunctival injection noted Neck: Soft, supple, trachea midline Cardiovascular: Regular rate and rhythm no murmurs gallops rubs noted Respiratory: Clear to auscultation bilaterally Abdomen: Soft, nondistended, no tenderness palpation Extremities: +4/5 strength noted in the bilateral upper and lower extremities, radial pulses +2/4 in the bilateral extremities Neurological: Patient following commands knew that she was at [facility] year is 2024 Skin: Warm, dry, intact no rashes or lesions noted Const Vital Signs: 03/04/25 18:37 03/04/25 19:04 03/04/25 20:03 Temperature 98.6 F 98.6 F Temperature Source Oral Oral Pulse Rate 98 87 Respiratory Rate 18 16 Blood Pressure 90/49 L 105/48 L Blood Pressure Mean 62 67 Pulse Ox 92 92 95 Oxygen Delivery Method Nasal Cannula Nasal Cannula Room Air Oxygen Flow Rate (L/min) 2 2 03/04/25 20:03 03/04/25 20:51 03/04/25 22:00 Temperature 98.3 F 98.2 F 98.2 F Temperature Source Oral Oral Oral Pulse Rate 88 89 86 Respiratory Rate 19 H 18 20 H Blood Pressure 120/44 L 116/53 L 120/64 Blood Pressure Mean 69 74 82 Pulse Ox 95 91 94 Oxygen Delivery Method Room Air Room Air Room Air Oxygen Flow Rate (L/min) 03/04/25 23:10 Temperature 98.0 F Temperature Source Pulse Rate 81 Respiratory Rate 16 Blood Pressure 135/80 H Blood Pressure Mean 98 Pulse Ox 95 Oxygen Delivery Method Oxygen Flow Rate (L/min) MDM MDM MDM Narrative Medical decision making narrative: Patient is a 80-year-old female who presented to the emergency department chief complaint of wanting her Serna catheter out and intermittent flank pain. On thedifferential diagnose includes but not limited to UTI, pyelonephritis, urolithiasis, AAA. Once workup is obtained and reviewed she will be reevaluated. Patient be given 1 L of IV fluids as there is concern that she does have a history of CHF with chronic kidney disease as well do not want to volume overload the patient. Her echocardiogram from 01/20/2025 reviewed showed ejection fraction of 35 to 40% with diastolic dysfunction and moderate global hypokinesis of the left ventricle as well. Patient's CBC reviewed showed no evidence leukocytosis white blood count normal 10.2, he was 10.1, platelet count of 334. Patient INR normal at 1, PT of 13.8. Patient sodium is 136, potassium normal at 5, creatinine was noted to be 1.29. Patient lactic acid was 2 normal, AST and ALT were 26 and 25 respectively. Patient's urinalysis showed 500 leukocyte esterase 25-50 white cells with 4+ bacteria this was sent for culture she was given a gram of Rocephin here in the emergency department she will be placed on ciprofloxacin. Patient CT ab pelvis with IV contrast showed possible aspiration pneumonia she does not have any respiratory symptoms therefore feel that this is less likely she has probable stercoral proctitis with moderate stool large rectal vault stool noted mild perirectal fat stranding. Did do a rectal exam here in the emergency department and the patient does not appear to be impacted she has soft stool in the rectal vault she had no pain on rectal exam this was soft brown stool no black no blood. At this point time the patient would like to go home at this point in time she will be given prescription for once again ciprofloxacin given her rash to Keflex. She will be encouraged to use MiraLAX twice a day for good bowel movements to clean out she was advised to follow-up with her doctor in outpatient setting return with worsening symptoms or concerns. She is agreeablethis plan all course concerns answered she was discharged home in stable condition. Lab Data Labs: Laboratory Results - last 24 hr 03/04/25 03/04/25 19:15 19:55 WBC 7.2 RBC 3.71 L Hgb 10.1 L Hct 33.5 L MCV 90.3 MCH 27.2 MCHC 30.1 L RDW Std Deviation 52.9 H RDW Coeff of Vijay 16.2 H Plt Count 334 MPV 10.6 Immature Gran % (Auto) 0.700 Neut % (Auto) 66.1 Lymph % (Auto) 24.2 Montrose % (Auto) 6.9 Eos % (Auto) 1.7 Baso % (Auto) 0.4 Absolute Neuts (auto) 4.8 Absolute Lymphs (auto) 1.75 Nucleated RBC % 0 PT 13.8 INR 1.0 APTT 25.2 Sodium 136 Potassium 5.0 Chloride 97 L Carbon Dioxide 29.0 Anion Gap 11 BUN 23 H Creatinine 1.29 H Estim Creat Clear Calc 32.46 L Est GFR (MDRD) Non-Af 42 L BUN/Creatinine Ratio 18.1 Glucose 116 H Lactic Acid 2.0 Calcium 10.7 Total Bilirubin 0.25 AST 26 ALT 25 Alkaline Phosphatase 79 Total Protein 6.9 Albumin 3.3 L Globulin 3.6 Albumin/Globulin Ratio 0.9 Urine Color Straw Urine Clarity Cloudy Urine pH 7.0 Ur Specific Milford 1.010 Urine Protein 100 H Urine Glucose (UA) 100 H Urine Ketones 5 H Urine Occult Blood 150 H Urine Nitrite Negative Urine Bilirubin Negative Urine Urobilinogen Normal Ur Leukocyte Esterase 500 H Urine RBC 0-5 SEEN Urine WBC 25-50 SEEN Ur Squamous Epith Cells 0-5 SEEN Amorphous Sediment 3+ Urine Bacteria 4+ Urine Mucus 0 SEEN Urine Yeast 2+ Radiography Diagnostic Testing: Clinical Impression(s) from Imaging Studies Abdomen/Pelvis CT 03/04/25 18:54 IMPRESSION: Possible aspiration pneumonia. 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 Reading Location: [place] [address] Discharge Plan Triage Chief Complaint: Serna C/O ED Provider: Jeevan Yoder Dx/Rx/DC Orders Clinical Impression: Urinary tract infection, Self-catheterizes urinary bladder, Neurogenic bladder Prescriptions: New ciprofloxacin HCl 500 mg tablet 500 mg PO Q12H 5 Days Qty: 10 0RF No Action Januvia 50 mg tablet [...] [Primary Care Provider] - Activity Restrictions/Additional Instructions: Follow-up with your doctor in outpatient setting. Follow-up and urine culture. Take antibiotic as prescribed sent to your pharmacy. Urinalysis did show evidence of infection. Take MiraLAX twice daily until you are having good bowelmovements then you can reduce to once daily. Return with any other concerns or worsening symptoms Print Language: Honduran Disposition Disposition: Home, Self Care What to do if you have Problems For any increased pain, shortness of breath, bleeding, nausea or vomiting, chestpain, or any unexpected problems, contact your Primary Care Provider. Call [facility] ([phone]) or report to the closest Emergency Room. Call 911 if necessary. 03/04/25 7883 <Electronically signed by Jeevan Yoder DO> Cosigner Signature (if applicable): CC: Dr. Ramone Smiley MD ~ Signed [facility] Work Phone: 1(253) 794-699806-21-2025 Radiology Diagnostic study [facility]06-21-2025 Discharge summary Author Billy Kothari [facility] Note Date/Time February 19, 2025 12:0 5am [facility] Medical Records Department [address] [place] [address] Emergency Department Summary 02/18/25 MR#: [id number] Acct: [id number] Name: OLGA DONALDSON Rep #:[id number] : 1945 80 From: Billy Kothari MD PCP: Dr. Ramone Smiley MD Status:REG ER Location: ED HPI History of Present Illness Chief Complaint: Shortness of Breath Narrative Narrative: 80-year-old female past medical history of COPD, wears 2 to 3 L of oxygen, presents from shelter facility with increasing shortness of breath. Sherelates history that she was admitted to the hospital for breathing difficulty and was released on Thursday. This is approximately 5 days ago. She is only at the shelter facility temporarily. She states she does not see a supervisor carbon electrodes. She has been taking prednisone since discharge. She presents today with increasing shortness of breath and occasional cough. No fevers or chills. [facility] Medical History History of diabetes mellitus COPD [...] hence, she was admitted then placed in shelter facility. Says that she had history of [...] on steroids and nebulizer treatments at the shelter facility. She is motivated for discharge. Disposition [...] 78.7 H Lymph % (Auto) 12.5 L Montrose % (Auto) 6.7 Eos % (Auto) 1.0 [...] evaluation. No obvious acute finding. Reading Location: [id number] Discharge Plan Triage Chief Complaint: Shortness of [...] wear your nasal cannula oxygen. Print Language: Honduran Disposition Disposition: Home, Self Care What to do if you have Problems For any increased pain, shortness of breath, bleeding, nausea or vomiting, chestpain, or any unexpected problems, contact your Primary Care Provider. Call [facility] ([phone]) or report to the closest Emergency Room. Call 911 if necessary. 02/19/25 0005 <Electronically signed by Billy Kothari MD> Cosigner Signature (if applicable): CC: Dr. Ramone Smiley MD ~ Signed [facility] Work Phone: 1(763) 796-597706-20-2025 Discharge summary Author Heydi Amaya [facility] Note Date/Time February 17, 2025 5:15 pm [facility] Medical Records Department [address] [place] [address] Discharge Summary 02/17/25 1713 MR#: [id number] Acct: [id number] Name: OLGA DONALDSON Rep #:[id number] : 1945 80 From: Heydi Amaya MD PCP: Dr. Ramone Smiley MD Status:ADM JESS Location: [place] [address] Providers Date of Admission: 02/15/25 Date of [...] release 40 mg PO DAILY ACID REFLUX 04/03/20 empagliflozin 10 mg tablet (Jardiance) 10 mg [...] GERD, COPD, hypertension, diabetes who presented to [facility] ED 02/16/2025 with shortness of breath and [...] Std Deviation 51.5 H, RDW Coeff of Ivjay 15.6 H, Plt Count 246, MPV 11.2, Immature Gran % (Auto) 0.900, Neut % (Auto) 86.1 H, Lymph % (Auto) 7.8L, Montrose % (Auto) 5.0, Eos % (Auto) 0.1, [...] BID (DME) lancets [TRUEplus Lancets] 28 gauge [facility] MISCELLANEOUS Breztri Aerosphere 160-9-4.8 mcg/actuation HFA aerosol [...] in before D/C Order can be placed): Fdc Facility Charges/Coding Visit Charges Inpatient E&M: 60618 Disch Hosp 02/17/251714 <Electronically signed by Heydi Amaya MD> Cosigner Signature (if applicable): CC: Dr. Ramone Smiley MD; Dr. Heydi Amaya MD~ Signed [facility] Work Phone: 1(561) 281-954006-20-2025 Discharge summary Author Heydi Amaya [facility] Note Date/Time February 17, 2025 5:13 pm [facility] Medical Records Department [address] [place] [address] Transfer to [facility] MR#: [id number] Acct: [id number] Name: OLGA DONALDSON Rep #:[id number] : 1945 80 From: Heydi Amaya MD PCP: Dr. Ramone Smiley MD Status:ADM JESS Certification of patient admission REQUIRED AT TIME OF ADMISSION. I CERTIFY THAT POST-HOSPITAL ECF SERVICES ARE REQUIRED TO BE GIVEN ON AN IN-PATIENT BASIS BECAUSE OF THE ABOVE NAMED PATIENT'S NEED FOR INTERMEDIATE CARE ON A CONTINUING BASIS FOR THE CONDITION(S) FOR WHICH HE/SHE WAS RECEIVING IN-PATIENT HOSPITAL SERVICES PRIOR TO HIS/HER TRANSFER TO THE [facility]. 02/17/251712<Electronically signed by Heydi Amaya MD> Diet [...] GERD, COPD, hypertension, diabetes who presented to [facility] ED 02/16/2025 with shortness of breath and [...] Primary Care Provider: Ramone Smiley Consulting Providers: eNstor Bartlett Instructions Patient Instructions: ED COPD Flare, [...] in before D/C Order can be placed): Fdc Facility 02/17/25 1713 <Electronically signed by Heydi Amaya MD> Cosigner Signature (if applicable): CC: Dr. Nestor Bartlett DO; Dr. Ramone Smiley MD ~ [facility] Work Phone: 1(901) 616-787706-20-2025 [facility]06-19-2025 Progress note Author Heydi [facility] Note Date/Time February 16, 2025 4:45 pm [facility] Medical Records Department [address] [place] [address] Progress Note - Hospitalist 02/16/25 0829 MR#: [id number] Acct: [id number] Name: OLGA DONALDSON Rep #:[id number] : 1945 80 From: Heydi Amaya MD PCP: Dr. Ramone Smiley MD Status:ADM JESS Location: [facility] [place] [place] TC121-8 Reason for Visit Reason for Visit: Diagnoses [...] 82.5 H, Lymph % (Auto) 10.9 L, Montrose % (Auto) 4.8, Eos % (Auto) 0.7, [...] evidence of acute cardiopulmonary process. Reading Location[facility] Physical Exam Narrative General: Alert, oriented, no [...] GERD, COPD, hypertension, diabetes who presented to [facility] ED 02/16/2025 with shortness of breath and [...] Amaya MD Charges/Coding Visit Charges Inpatient E&M: 94468 Subs Hosp L2 02/16/25 1645 <Electronically signed by Heydi Amaya MD> Cosigner Signature (if applicable): CC: ~ Signed [facility] Work Phone: 1(139) 913-900806-18-2025 Discharge summary Author Robert Allison [facility] Note Date/Time February 15, 2025 3:14 pm [facility] Medical Records Department [address] [place] [address] Emergency Department Summary 02/15/25 MR#: [id number] Acct: [id number] Name: OLGA DONALDSON Rep #:[id number] : 1945 80 From: Robert Allison DO PCP: Dr. Ramone Smiley MD Status:ADM JESS Location: [place] [address] HPI History of Present Illness Chief Complaint: [...] a cough. Denies fever or chest pain. [facility] Medical History (Updated 02/15/25 @ 13:15 [...] 0 01/15/25 Unknown History subcutaneous pen injector (Baoro) potassium chloride 20 mEq 20 meq PO [...] and faint expiratory wheezes. Mild tachypnea. 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 BT PERSONNEL CLERKS SUPERVISOR also elevated 4408 however this is significantly [...] They are requesting placement to rehab facility. gas worker saw patient and asked that we [...] 82.5 H Lymph % (Auto) 10.9 L Montrose % (Auto) 4.8 Eos % (Auto) 0.7 [...] evidence of acute cardiopulmonary process. Reading Location: [facility] 1 view chest x-ray obtained interpreted myself [...] Care Provider] - 3-5 Days Print Language: Honduran Disposition Disposition: Acute Care Hospital [facility] What to do if you have Problems For any increased pain, shortness of breath, bleeding, nausea or vomiting, chestpain, or any unexpected problems, contact your Primary Care Provider. Call [facility] ([phone]) or report to the closest Emergency Room. Call 911 if necessary. 02/15/25 1514 <Electronically signed by Robert Allison DO> Cosigner Signature (if applicable): CC: Dr. Ramone Smiley MD ~ Signed [facility] Work Phone: [phone]) 538-514206-18-2025 History and physical note Author Nestor Bartlett [facility] Note Date/Time February 15, 2025 2:57 pm [facility] Medical Records Department [address] [place] [address] H&P Exam - Hospitalist 02/15/25 1401 MR#: [id number] Acct: [id number] Name: OLGA DONALDSON Rep #:[id number] : 1945 80 From: Nestor roman DO PCP: Dr. Ramone Smiley MD Status:ADM JESS Location: [place] [address] HPI - General General Date of Admission: 02/15/25 Date of Service: 02/15/25 Chief Complaint: Shortness of breath, acute on chronic debility HPI Narrative OLGA DONALDSON, is a 80 F who presented to [facility] ED on 02/15/2025 with shortness of breath [...] currently. Will be admitted for further management. [facility] Medical History (Updated 02/15/25 @ 13:15 [...] 82.5 H, Lymph % (Auto) 10.9 L, Montrose % (Auto) 4.8, Eos % (Auto) 0.7, [...] evidence of acute cardiopulmonary process. Reading Location: [facility] Assessment & Plan Assessment/Plan (1) Generalized weakness: PLAN: Plan Patient is an 80-year-old female who presented [facility] ED on 02/15/2025 with recurrent shortness of breath and acute on chronic debility. 1. Acute on chronic debility ? Admit under observation status to [facility]. PT/OT/case management consulted. Multiple recent hospitalizations [...] 75 minutes. Charges/Coding Visit Charges Inpatient E&M: 05478 Init Hosp L3 02/15/25 1457 <Electronically signed by Nestor Bartlett DO> Cosigner Signature (if applicable): CC: Dr. Nestor Bartlett DO; Dr. Ramone Smiley MD~ Signed [facility] Work Phone: 1(192) 521-610306-18-2025 Radiology Diagnostic study [facility]06-16-2025 Discharge summary Author Lucio Borden [facility] Note Date/Time February 13, 2025 2:22 pm [facility] Medical Records Department [address] [place] [address] Instructions for Home/Discharge Instructions 02/13/25 1415 MR#: [id number] Acct: [id number] Name: OLGA DONALDSON Rep #:[id number] : 1945 80 From: Lucio Borden DO [...] CC: Dr. Ramone Smiley MD ~ Signed [facility] Work Phone: 1(341) 443-839306-16-2025 [facility]06-15-2025 Progress note Author [facility] Note Date/Time February 12, 2025 11:2 5am [facility] Medical Records Department [address] [place] [address] Progress Note - Hospitalist 02/12/25 1123 MR#: [id number] Acct: [id number] Name: OLGA DONALDSON Rep #:[id number] : 1945 80 From: Lucio Borden DO PCP: Dr. Ramone Smiley MD Status:ADM IN Location: [place] 736563-1 Reason for Visit Reason for Visit: Diagnoses [...] 35- minutes Charges/Coding Visit Charges Inpatient E&M: 10784 Subs Hosp L2 02/12/25 1125 <Electronically signed by Lucio Borden DO> Cosigner Signature (if applicable): CC: ~ Signed [facility] Work Phone: [phone]) 430-738706-14-2025 Progress note Author Lucio Borden [facility] Note Date/Time February 11, 2025 4:29 pm [facility] Medical Records Department [address] [place] [address] Progress Note - Hospitalist 02/11/25 1621 MR#: [id number] Acct: [id number] Name: OLGA DONALDSON Rep #:[id number] : 1945 80 From: Lucio Borden DO PCP: Dr. Ramone Smiley MD Status:ADM IN Location: [place] [address] Reason for Visit Reason for Visit: Diagnoses [...] 35- minutes Charges/Coding Visit Charges Inpatient E&M: 08875 Subs Hosp L2 02/11/25 1629 <Electronically signed by Lucio Borden DO> Cosigner Signature (if applicable): CC: ~ Signed [facility] Work Phone: 1(546) 394-829506-13-2025 Progress note Author [facility] Note Date/Time February 10, 2025 5:29 pm [facility] Medical Records Department [address] [place] [address] Progress Note - Hospitalist 02/10/25 1720 MR#: [id number] Acct: [id number] Name: OLGA DONALDSON Rep #:[id number] : 1945 80 From: Lucio Borden DO PCP: Dr. Ramone Smiley MD Status:ADM IN Location: MS3 DJ542-0 Reason for Visit Reason for Visit: Diagnoses [...] 35- minutes Charges/Coding Visit Charges Inpatient E&M: 15593 Subs Hosp L2 02/10/25 4899 <Electronically signed by Lucio Borden DO> Cosigner Signature (if applicable): CC: ~ Signed [facility] Work Phone: [phone] 984-260006-12-2025 History and physical note Author Tono Gomez [facility] Note Date/Time February 09, 2025 7:17 pm [facility] Medical Records Department [address] [place] [address] H&P Exam - Hospitalist 02/09/25 1525 MR#: [id number] Acct: [id number] Name: OLGA DONALDSON Rep #:[id number] : 1945 80 From: Tono BHATTI PCP: Dr. Ramone Smiley MD Status:ADM IN Location: [facility] [place] [place] VO150-4 [facility] - General General Date of Service: 02/09/25 [...] tightness, no dizziness or lightheadedness, no palpitations. [facility] Medical History COPD with exacerbation Anemia [...] 01/15/25 01/15/25 History 0.005 % eye drops ([facility]) psyllium husk 0.4 gram capsule 0.4 g [...] (Auto) 86.9 H, Lymph % (Auto) 7.3L, Montrose % (Auto) 4.5, Eos % (Auto) 0.1, [...] degree of bibasilar linear atelectasis. Reading Location: [facility] Assessment & Plan Assessment/Plan (1) COPD exacerbation: [...] assessment and findings. Visit Charges Inpatient E&M: 15506 Init Hosp L2 02/09/251916<Electronically signed by Lucio Borden DO> Cosigner Signature (if applicable): cc: DAVY Dykes; Dr. Ramone Smiley MD; Dr. Lucio Borden DO ~* Signed [facility] Work Phone: 1(170) [phone] Discharge summary Author Jeremiah Corrales [facility] Note Date/Time February 09, 2025 2:57 pm [facility] Medical Records Department [address] [place] [address] Emergency Department Summary 02/09/25 MR#: [id number] Acct: [id number] Name: OLGA DONALDSON Rep #:[id number] : 1945 80 From: Jeremiah Corrales MD [...] Prior similar symptoms: Yes Recent Illness/Hospitalization: Yes [facility] Medical History COPD with exacerbation Anemia [...] 86.9 H Lymph % (Auto) 7.3 L Montrose % (Auto) 4.5 Eos % (Auto) 0.1 [...] degree of bibasilar linear atelectasis. Reading [facility] Chest x-ray, 2 views, interpreted by myself and radiologist. AP and lateral. She has cardiomegaly. Chronic changes. Atelectasis. No pneumonia. No effusions. Rhythm Strip Rhythm Strip: Sinus Rhythm Rate: 93 Ectopy: None EKG Initial EKG: Attestation: I personally reviewed and interpreted this EKG as follows: Interpretation: Sinus Rhythm and No Acute Injury Pattern Comments: Normal sinus rhythm rate of 93 no acute signs PR or ischemia. Patient does have inverted T waves in V4 5 and 6 slight change from prior EKG from February 04. Prior EKG tracings: available for review Prior: Changed Discharge Plan Dx/Rx/DC Orders Clinical Impression: Acute dyspnea, Elevated troponin, Hypoxia, COPD exacerbation, History of diabetes mellitus Disposition Disposition: Acute Care Hospital [facility] What to do if you have Problems For any increased pain, shortness of breath, bleeding, nausea or vomiting, chestpain, or any unexpected problems, contact your Primary Care Provider. Call [facility] ([phone]) or report to the closest Emergency Room. Call 911 if necessary. 02/09/25 8624 <Electronically signed by Jeremiah Corrales MD> Cosigner Signature (if applicable): CC: Dr. Ramone Smiley MD ~ Signed [facility] Work Phone: 1(720) 308-794306-12-2025 Radiology Diagnostic study [facility]06-09-2025 Discharge summary Author Lucio Borden [facility] Note Date/Time February 06, 2025 2:01p m [facility] Medical Records Department [address] [place] [address] Instructions for Home/Discharge Instructions 02/06/25 1351 MR#: [id number] Acct: [id number] Name: OLGA DONALDSON Rep #:[id number] : 1945 80 From: Lucio Borden DO [...] CC: Dr. Ramone Smiley MD ~ Signed [facility] Work Phone: 1(462) 605-596406-09-2025 [facility]06-08-2025 Progress note Author Lucio Borden [facility] Note Date/Time February 05, 2025 2:48p m [facility] Medical Records Department [address] [place] [address] Progress Note - Hospitalist 02/05/25 1442 MR#: [id number] Acct: [id number] Name: OLGA DONALDSON Rep #:[id number] : 1945 80 From: Lucio Borden DO PCP: Dr. Ramone Smiley MD Status:ADM IN Location: [place] [address] Subjective Subjective Patient was seen and examined [...] not believe the patient has had an PR #4 type 2 diabetes-blood sugars will be [...] 35 minutes Charges/Coding Visit Charges Inpatient E&M: 26672 Subs Hosp L2 02/05/25 7486 <Electronically signed by Lucio Borden DO> Cosigner Signature (if applicable): CC: ~ Signed [facility] Work Phone: 1([phone]) 485-544206-07-2025 Discharge summary Author Aj Holley [facility] Note Date/Time February 04, 2025 10:27 am [facility] Medical Records Department [address] [place] [address] Emergency Department Summary 02/04/25 MR#: [id number] Acct: [id number] Name: OLGA DONALDSON Rep #:[id number] : 1945 80 From: Aj Holley MD [...] of the couch, and has no pain. [facility] Medical History Elevated troponin Coronary artery disease [...] Other Verified 02/04/25 06:21 Plavix) Family History (Reviewed 01/31/25 @ 16:15 by Whitney Cao PERSONNEL CLERKS SUPERVISOR, PERSONNEL CLERKS SUPERVISOR-C) Daughter Breast cancer Father Hypertension Sister Cancer Kidney disease Mother Pancreatic cancer Surgical History History of left hip hemiarthroplasty S/P fine needle aspiration (~10/2020) H/O dilation and curettage (~07/10/20) History of Achilles tendon repair Retinopathy History of lumpectomy of left breast Social History (Reviewed 01/31/25 @ 16:15 by Whitney Cao PERSONNEL CLERKS SUPERVISOR, PERSONNEL CLERKS SUPERVISOR-C) household members: spouse Smoking Status: Former smoker [...] 75.4 H Lymph % (Auto) 15.7 L Montrose % (Auto) 6.6 Eos % (Auto) 1.7 [...] MD [Primary Care Provider] - Print Language: Honduran What to do if you have Problems For any increased pain, shortness of breath, bleeding, nausea or vomiting, chestpain, or any unexpected problems, contact your Primary Care Provider. Call [facility] ([phone]) or report to the closest Emergency Room. [...] 11.8 and 37.9. White count slightly elevated Vanderbilt 0.2 thousand. There is slight shift with [...] cc: Dr. Ramone Smiley MD ~* Signed [facility] Work Phone: 1(641) 527-100006-07-2025 Radiology Diagnostic study [facility]06-07-2025 Radiology Diagnostic study [facility]05-29-2025 Radiology Diagnostic study [facility] 01-24-2025 [facility]05-26-2025 Progress note Author Becca Silverman [facility] Note Date/Time January 23, 2025 3:40p m [facility] Medical Records Department [address] [place] [address] Progress Note - Cardiology 01/23/25 1528 MR#: [id number] Acct: [id number] Name: OLGA DONALDSON Rep #:[id number] : 1945 80 From: Becca Silverman MD PCP: Dr. Ramone Smiley MD Status:ADM IN Location: [place] [address] Subjective Subjective Seen and evaluated at bedside [...] (Auto) 90.8 H, Lymph % (Auto) 6.2L, Montrose % (Auto) 2.7, Eos % (Auto) 0.0, [...] (Auto)90.8 H, Lymph % (Auto) 6.2 L, [place]rose % (Auto) 2.7, Eos % (Auto) 0.0, [...] up an appointment to be seen by licensed optician as an outpatient and discussed further plan possible Lexiscan sestamibi and based on results of Lexiscan sestamibi to consider further evaluation. To minimize risk of contrast-induced nephropathy. Becca Silverman MD,[facility] 01/23/25 3627 <Electronically signed by Becca Silverman MD> Cosigner Signature (if applicable): CC: ~ Signed [facility] Work Phone: 1(666) 782-169805-26-2025 Progress note Author [facility] Note Date/Time January 23, 2025 2:43p m [facility] Medical Records Department [address] [place] [address] Progress Note 01/23/25 1037 MR#: [id number] Acct: [id number] Name: OLGA DONALDSON Rep #:[id number] : 1945 80 From: Melba Hartmann MD PCP: Dr. Ramone Smiley MD Status:ADM IN Location: [place] [address] Subjective Subjective Patient seen and examined. She [...] (Auto) 90.8 H, Lymph % (Auto) 6.2L, Montrose % (Auto) 2.7, Eos % (Auto) 0.0, [...] prophylaxis: Heparin Charges/Coding Visit Charges Inpatient E&M: 41386 Subs Hosp L2 01/23/25 2481 <Electronically signed by Melba Hartmann MD> Melba Hartmann MD Cosigner Signature (if applicable): CC: ~ Signed [facility] Work Phone: 1(326) 119-899505-25-2025 Progress note Author Melba Hartmann [facility] Note Date/Time January 22, 2025 2:00p m [facility] Medical Records Department [address] [place] [address] Progress Note 01/22/25 0949 MR#: [id number] Acct: [id number] Name: OLGA DONALDSON Rep #:[id number] : 1945 80 From: Melba Hartmann MD PCP: Dr. Ramone Smiley MD Status:ADM IN Location: [place] [address] Subjective Subjective Patient seen and examined this [...] 91.4 H, Lymph % (Auto) 5.7 L, Montrose % (Auto) 2.4, Eos % (Auto) 0.0, [...] to PCU Charges/Coding Visit Charges Inpatient E&M: 44865 Subs Hosp L2 01/22/25 1242 <Electronically signed by Melba Hartmann MD> Melba Hartmann MD Cosigner Signature (if applicable): CC: ~ Signed ADDENDUM by Dr. Melba Hartmann MD on 01/22/25 at 1400 Addendum 1:30pm Patient's son Ursula Lees Jr called on the phone ([phone]) and updated about his mother's condition. 01/22/25 1400 <Electronically signed by Melba vivas MD> Date _ Melba Hartmann MD Cosigner Signature (if applicable): Date cc: ~* Signed [facility] Work Phone: 1(573) 439-367805-24-2025 Progress note Author Melba Hartmann [facility] Note Date/Time January 21, 2025 2:07p [facility] Medical Records Department [address] [place] [address] Progress Note 01/21/25 1039 MR#: [id number] Acct: [id number] Name: OLGA DONALDSON Rep #:[id number] : 1945 80 From: Melba Hartmann MD [...] 88.4 H, Lymph % (Auto) 7.7 L, Montrose % (Auto) 3.5, Eos % (Auto) 0.0, [...] H, Calcium 9.8, [place] [address] H 01/21/25 08:06: POC Glucose 202 H [...] To/Read Back Yes Blood Gas Notified [facility] Blood Gas Notified Time 16:55:40 Radiography [...] pericardial effusion. Reading Location: [facility] Echocardiogram 01/20/25 04:12 Interpretation Summary Mildly dilated left ventricle. The estimated ejection fraction is 35-40 %. There is evidence of diastolic dysfunction. There is moderate global hypokinesis of the left ventricle. Trivial mitral valve insufficiency. Mild aortic stenosis. Trivial aortic valve insufficiency. Ordering Physician: Sandeep Carlton Referring Physician: Ramone Smiley Performed By: Margot Cleary, RDCS, RVT Chest X-Ray 01/21/25 05:55 IMPRESSION: New appearing afik-bb-bntmrpux ill-defined perihilar opacity at the left upper [...] prophylaxis: Heparin Charges/Coding Visit Charges Inpatient E&M: 15287 Subs Hosp L2 01/21/25 1407 <Electronically signed by Melba Hartmann MD> Melba Hartmann MD Cosigner Signature (if applicable): CC: ~ Signed [facility] Work Phone: 1(232) 575-279005-24-2025 Radiology Diagnostic study [facility]05-23-2025 Progress note Author [facility] Note Date/Time January 20, 2025 4:58p m [facility] Medical Records Department [address] [place] [address] Progress Note - Hospitalist 01/20/25 1657 MR#: [id number] Acct: [id number] Name: PATRICK DONALDSONCA Rep #:[id number] : 1945 80 From: Lucio Borden DO PCP: Dr. Ramone Smiley MD Status:ADM IN Location: [place] [address] Hospitalist Note Patient continues to have respiratory [...] Cosigner Signature (if applicable): CC: ~ Signed [facility] Work Phone: 1(271) 905-399405-23-2025 Progress note Author Lucio [facility] Note Date/Time January 20, 2025 11:20 am [facility] Medical Records Department [address] [place] [address] Progress Note - Hospitalist 01/20/25 1119 MR#: [id number] Acct: [id number] Name: ANIKAOLGA Rep #:[id number] : 1945 80 From: Lcuio Borden DO PCP: Dr. Ramone Smiley MD Status:ADM IN Location: [place] [address] Hospitalist Note Patient was seen and examined today, made the decision to change the patient to Airvo, patient was admitted for suspected right lower lobe pneumonia and exacerbation of COPD, she remained on aerosol treatments, IV Solu-Medrol, and IVlevofloxacin. 01/20/25 1120 <Electronically signed by Lucio Borden DO> Cosigner Signature (if applicable): CC: ~ Signed [facility] Work Phone: 1(259) 177-774405-23-2025 History and physical note Author Sandeep Marie [facility] Note Date/Time January 20, 2025 6:06a m [facility] Medical Records Department [address] [place] [address] H&P Exam - Hospitalist 01/20/25 0241 MR#: [id number] Acct: [id number] Name: OLGA DONALDSON Rep #:[id number] : 1945 80 From: Sandeep Dukes DO PCP: Dr. Ramone Smiley MD Status:ADM IN Location: [place] [address] HPI - General General Date of Admission: [...] stenosis of lumbar region who presents to [facility] ER complaining of shortness of breath. Ms. [...] is expected to extend beyond 2 midnights. [facility] Medical History Fracture of hip, left, [...] Neut % (Auto) 58.4, Lymph % (Auto) 32.0,Montrose % (Auto) 7.7, Eos % (Auto) 0.8, [...] Clarity Clear, Urine pH 6.0, Ur Specific [place] 1.010, Urine Protein 100 H, Urine Glucose [...] noted. Cardiomegaly. No pericardial effusion. Reading Location: [id number] Assessment & Plan Assessment/Plan (1) Pneumonia: QUALIFIERS: [...] twice daily. Give acetaminophen as needed for wgth-cw-jpmotiei (level 1-5/10) pain or fever. Give morphine [...] responsive hypotension Charges/Coding Visit Charges Inpatient E&M: 72088 Init Hosp L3 01/20/25 0606 <Electronically signed by Sandeep Carlton DO> Cosigner Signature (if applicable): CC: Dr. Sandeep Carlton DO; Dr. Ramone Smiley MD~ Signed [facility] Work Phone: 1(441) [phone] Evaluation note* Diagnosis Onset Date Resolution Status Admit Date Acute hypoxemic respiratory failure acute January 20, 2025 3 :32am Acute hypoxic on chronic hypercapnic respiratory failure acute January 20, 2025 3:32am Elevated troponin acute December 3:32am Lactic acidosis acute January 20, 2025 3:32am Leukocytosis acute January 20 3:32am Obesity (BMI 30.0-34.9) acute [facility] 2024 3:32am Pneumonia acute January 20, 2025 3:32am Aortic stenosis chronic January 20, 2025 3:32am CHF exacerbation chronic December 3:32am COPD exacerbation chronic December 3:32am Coronary artery disease chronic 2024 3:32am Hypertension chronic January 20 3:32am [facility] Work Phone: [phone]) 565-491205-23-2025 Evaluation note* Diagnosis Onset Date Resolution Status Admit Date Aortic stenosis acute January 20, 2025 3:32am Coronary artery disease acute 2024 3:32am Elevated troponin acute December 3:32am [...] diabetes mellitus chronic February 04, 2025 10:52am [facility] Work Phone: [phone]) 203-855905-23-2025 Evaluation note* Diagnosis Onset Date Resolution Status [...] diabetes mellitus chronic February 04, 2025 10:52am [facility] Work Phone: 1(647) [phone] Evaluation note* Diagnosis Onset Date Resolution Status [...] inactive January 31, 2025 1:42pm Hypertension inactive Priyanka 3rd, 20 25 1:42pm Acute hypoxemic respiratory failure inactive February [...] failure remov ed February 09, 2025 3:00pm [facility] Work Phone: [phone] Evaluation note* Diagnosis Onset Date Resolution Status [...] 2025 1:42pm Hypertension chronic January 31 1:42pm [facility] Work Phone: 1(324) 276-433605-23-2025 Evaluation note* Diagnosis Onset Date Resolution Status [...] failure remov ed February 09, 2025 3:00pm [facility] Work Phone: 1(302) 528-727005-23-2025 Evaluation note* Diagnosis Onset Date Resolution Status [...] Generalized weakness inactive February 15, 2025 2:01pm [facility] Work Phone: [phone] Evaluation note* Diagnosis Onset Date Resolution Status [...] 3:00pm Debility acute February 15 2:01pm Dyspnea resolved February 15 2:01pm Generalized weakness inactive February 15, 2025 2:01pm [facility] Work Phone: 1([phone] 432-824005-23-2025 Discharge summary Author Jeevan Yoder [facility] Note Date/Time January 20, 2025 2:43a m [facility] Medical Records Department [address] [place] [address] Emergency Department Summary 01/20/25 MR#: [id number] Acct: [id number] Name: OLGA DONALDSON Rep #:[id number] : 1945 80 From: Jeevan Yoder DO [...] has had progressive worsening shortness of breath. [facility] Medical History Fracture of hip, left, [...] % (Auto) 58.4 Lymph % (Auto) 32.0 Montrose % (Auto) 7.7 Eos % (Auto) 0.8 [...] Clarity Clear Urine pH 6.0 Ur Specific Milford 1.010 Urine Protein 100 H Urine Glucose [...] pericardial effusion. Reading Location: [facility] Discharge Plan Triage Chief Complaint: [...] MD [Primary Care Provider] - Print Language: Honduran What to do if you have Problems For any increased pain, shortness of breath, bleeding, nausea or vomiting, chestpain, or any unexpected problems, contact your Primary Care Provider. Call [facility] ([phone]) or report to the closest Emergency Room. Call 911 if necessary. 01/20/25 9160 <Electronically signed by Jeevan Yoder DO> Cosigner Signature (if applicable): CC: Dr. Ramone Smiley MD ~ Signed [facility] Work Phone: 1(616) 362-787405-23-2025 Radiology Diagnostic study [facility]05-18-2025 Discharge summary [facility] Medical Records Department [address] [place] [address] Emergency Department Summary 01/15/25 MR#: [id number] Acct: [id number] Name: OLGA DONALDSON Rep #:[id number] : 1945 80 From: Jeevan Yoder DO [...] of the antibiotic that was placed on. [facility] Medical History Fracture of hip, left, [...] follow commands and that she was at [facility] the year is 2024 Skin: Warm, [...] 72.7 H Lymph % (Auto) 18.1 L Montrose % (Auto) 6.9 Eos % (Auto) 1.6 [...] IMPRESSION: Cardiomegaly with mild congestion. Reading Location: [facility] Discharge Plan Triage Chief Complaint: Shortness of [...] with worsening symptoms or concerns. Print Language: Honduran Disposition Disposition: Home, Self Care What to do if you have Problems For any increased pain, shortness of breath, bleeding, nausea or vomiting, chestpain, or any unexpected problems, contact your Primary Care Provider. Call [facility] ([phone]) or report tothe closest Emergency Room. Call 911 if necessary. 01/15/25 1845 Cosigner Signature (if applicable): CC: Dr. Ramone Smiley MD ~ Signed [facility]05-18-2025 Radiology Diagnostic study note [facility] [address] [place], [place] [address] Chest PA and Lateral MR#: [id number] Acct: [id number] Name: OLGA DONALDSON Rep #: [id number] : 1945 F 80 From: Kary Darnell MD PCP: Dr. Ramone Smiley MD Status: REG ER Study:Chest PA and Lateral Date of Exam: 01/15/25 Exam# [id number] Ordering Dr: Yoly Yoder DO EXAM: XR Chest, 2 Views CLINICAL INDICATION: CHEST PAIN TECHNIQUE: Frontal and lateral views of the chest. COMPARISON: No relevant prior studies available. FINDINGS: LUNGS AND PLEURAL SPACES: See below. HEART: Cardiomegaly with mild congestion. MEDIASTINUM: Unremarkable. Normal mediastinal contour. BONES/JOINTS: Unremarkable. No acute fracture. RAD/Chest PA and Lateral IMPRESSION: Cardiomegaly with mild congestion. Reading Location: [facility] CC: Dr. Ramone Smiley MD; Dr. eJevan Yoder DO ~ [employer]it Goods Washer: Signed [facility]05-18-2025 Discharge summary Author Jeevan Yoder [facility] Note Date/Time January 15, 2025 6:45p m [facility] Medical Records Department [address] [place] [address] Emergency Department Summary 01/15/25 MR#: [id number] Acct: [id number] Name: OLGA DONALDSON Rep #:[id number] : 1945 80 From: Jeevan Yoder DO [...] of the antibiotic that was placed on. [facility] Medical History Fracture of hip, left, [...] follow commands and that she was at [facility] the year is 2024 Skin: Warm, [...] 72.7 H Lymph % (Auto) 18.1 L Montrose % (Auto) 6.9 Eos % (Auto) 1.6 [...] IMPRESSION: Cardiomegaly with mild congestion. Reading Location: [facility] Discharge Plan Triage Chief Complaint: Shortness of [...] with worsening symptoms or concerns. Print Language: Honduran Disposition Disposition: Home, Self Care What to do if you have Problems For any increased pain, shortness of breath, bleeding, nausea or vomiting, chestpain, or any unexpected problems, contact your Primary Care Provider. Call [facility] ([phone]) or report to the closest Emergency Room. Call 911 if necessary. 01/15/251844 <Electronically signed by Jeevan Yoder DO> Cosigner Signature (if applicable): CC: Dr. Ramone Smiley MD ~ Signed [facility] Work Phone: 1(342) 123-132605-10-2025 Discharge summary [facility] Medical Records Department [address] [place] [address] Emergency Department Summary 01/07/25 MR#: [id number] Acct: [id number] Name: OLGA DONALDSON Rep #:[id number] : 1945 80 From: Ethan Casanova PCP: [...] DIABETES 08/13/23 08/10/23 History subcutaneous pen injector ([facility]) gabapentin 100 mg capsule 100 mg PO [...] clinician: N/A This note was generated with [employer] dictation software. It may contain incorrectwords, spelling, [...] % (Auto) 58.0 Lymph % (Auto) 31.8 Montrose % (Auto) 7.6 Eos % (Auto) 1.9 [...] IMPRESSION: Cardiomegaly without overt failure. Reading Location: [facility] Discharge Plan Triage Chief Complaint: Shortness of [...] steroids is tomorrow. This was sent to [employer]. Print Language: Honduran Disposition Disposition: Home, Self Care What to do if you have Problems For any increased pain, shortness of breath, bleeding, nausea or vomiting, chestpain, or any unexpected problems, contact your Primary Care Provider. Call [facility] ([phone]) or report tothe closest Emergency Room. Call 911 if necessary. 01/07/25 1700 Cosigner Signature (if applicable): CC: Dr. Ramone Smiley MD ~ Signed [facility]05-10-2025 Radiology Diagnostic study note [facility] Imaging Services [address] [place] [address] Chest PA and Lateral MR#: [id number] Acct: [id number] Name: OLGA DONALDSON Rep #: [id number] : 1945 F 80 From: Kary Darnell MD PCP: Dr. Ramone Smiley MD Status: PRE ER Study:Chest PA and Lateral Date of Exam: 01/07/25 Exam# [id number] Ordering Dr: Ethan Darnell DO EXAM: XR Chest, 2 Views CLINICAL INDICATION: COUGH TECHNIQUE: Frontal and lateral views of the chest. COMPARISON: No relevant prior studies available. FINDINGS: LUNGS AND PLEURAL SPACES: Unremarkable. No consolidation. No pneumothorax. HEART: Cardiomegaly without overt failure. MEDIASTINUM: Unremarkable. Normal mediastinal contour. BONES/JOINTS: Unremarkable. No acute fracture. RAD/Chest PA and Lateral IMPRESSION: Cardiomegaly without overt failure. Reading Location: [facility] CC: Dr. Ramone Smiley MD; Dr. Ethan Darnell DO ~ [employer] Goods Washer: Signed [facility]05-10-2025 Discharge summary Author Ethan Darnell [facility] Note Date/Time January 07, 2025 5:00p [facility] Medical Records Department [address] [place] [address] Emergency Department Summary 01/07/25 MR#: [id number] Acct: [id number] Name: OLGA DONALDSON Rep #:[id number] : 1945 80 From: Ethan Casanova PCP: [...] clinician: N/A This note was generated with [employer] dictation software. It may contain incorrectwords, spelling, [...] % (Auto) 58.0 Lymph % (Auto) 31.8 Montrose % (Auto) 7.6 Eos % (Auto) 1.9 [...] IMPRESSION: Cardiomegaly without overt failure. Reading Location: [facility] Discharge Plan Triage Chief Complaint: Shortness of [...] HFA aerosol inhaler inhalation Primary Care Provider: aRmone Smiley Referrals: Ramone Smiley MD [Primary Care [...] steroids is tomorrow. This was sent to [employer]. Print Language: Honduran Disposition Disposition: Home, Self Care What to do if you have Problems For any increased pain, shortness of breath, bleeding, nausea or vomiting, chestpain, or any unexpected problems, contact your Primary Care Provider. Call [facility] ([phone]) or report to the closest Emergency Room. Call 911 if necessary. 01/07/25 1700 <Electronically signed by Ethan Casanova> Cosigner Signature (if applicable): CC: Dr. Ramone Smiley MD ~ Signed [facility] Work Phone: 1(561) 445-238705-01-2024 Progress note Author Sunny Ray [facility] December 30, 2023 12:34pm Note Date/Time December 30, 2023 12:35p [facility] Medical Records Department [address] [place] [address] Progress Note - Hospitalist 12/30/23 1228 MR#: [id number] Acct: [id number] Name: OLGA DONALDSON Rep #:[id number] : 1945 78 From: Sunny Blue PCP: Dr. Ramone Smiley MD Status:ADM IN [facility] Reason for Visit Reason for Visit: Diagnoses [...] % (Auto) 63.9, Lymph % (Auto) 25.3, Mont[place] % (Auto) 8.7, Eos % (Auto) 1.4, [...] Patient is a 78-year-old female who presented [facility] ED on 12/27/2023 with left hip pain after a fall at home. She got up from the couch toself catheter, got her walker turned and then lost balance and fell on her left hip. 1. Acute debility due to left impacted transcervical femoral neck fracture. ? Admit under inpatient status to [facility]. Orthopedics consulted. N.p.o. at midnight. PT/OT/case [...] cousin over the phone who lives in [place]. Patient is clinically doing well. Currently has [...] disposition: TBD Charges/Coding Visit Charges Inpatient E&M: 05229 Subs Hosp L2 12/30/23 1234 <Electronically signed by Sunny Bell MD> Cosigner Signature (if applicable): CC: ~ Signed [facility] Work Phone: 1(771) 979-462704-30-2024 Progress note Author Sunny Bell [facility] December 29, 2023 12:47pm Note Date/Time December 29, 2023 9:3 0am [facility] Medical Records Department [address] [place] [address] Progress Note - Hospitalist 12/29/23 0929 MR#: [id number] Acct: [id number] Name: OLGA DONALDSON Rep #:[id number] : 1945 78 From: Sunny Blue PCP: Dr. Ramone Smiley MD Status:ADM IN Location: [place] [address]1 Reason for Visit Reason for Visit: Diagnoses [...] (Auto) 81.1 H, Lymph %(Auto) 9.5 L, Mont[place] % (Auto) 8.5, Eos % (Auto) 0.1, [...] Patient is a 78-year-old female who presented [facility] ED on 12/27/2023 with left hip pain after a fall at home. She got up from the couch toself catheter, got her walker turned and then lost balance and fell on her left hip. 1. Acute debility due to left impacted transcervical femoral neck fracture. ? Admit under inpatient status to [facility]. Orthopedics consulted. N.p.o. at midnight. PT/OT/case [...] cousin over the phone who lives in [place]. Patient is clinically doing well. Currently has [...] disposition: TBD Charges/Coding Visit Charges Inpatient E&M: 81834 Subs Hosp L2 12/29/23 1247 <Electronically signed by Sunny Bell MD> Cosigner Signature (if applicable): CC: ~ Signed [facility] Work Phone: 1([phone]) 856-623504-30-2024 Progress note Author Sj Delacruz [facility] December 29, 2023 11:56am Note Date/Time December 29, 2023 11: 56am [facility] Medical Records Department [address] [place] [address] Progress Note - Orthopedic 12/29/23 1152 MR#: [id number] Acct: [id number] Name: OLGA DONALDSON Rep #:[id number] : 1945 78 From: Sj BHATTI PA-C PCP: Dr. Ramone Smiley MD Status:ADM IN Location: MS[facility] DJ565-5 Subjective Subjective Patient sitting at bedside watching [...] (Auto) 81.1 H, Lymph %(Auto) 9.5 L, Montrose % (Auto) 8.5, Eos % (Auto) 0.1, [...] 14:25 EDT Reading Location ID and State: [facility] / [place] , Service support , Hip X-Ray 12/28/23 [...] Cosigner Signature (if applicable): CC: ~ Signed [facility] Work Phone: 1(948) 642-412004-29-2024 Consult note Author Gabriel Byrd [facility] December 28, 2023 12:59pm Note Date/Time December 28, 2023 12: 59pm [facility] Medical Records Department [address] [place] [address] Consultation - Orthopedics 12/28/23 1252 MR#: [id number] Acct: [id number] Name: OLGA DONALDSON Rep #:[id number] : 1945 78 From: Gabriel Blue PCP: Dr. Ramone Smiley MD Status:ADM IN Location: [facility] [place] QM467-3 HPI Consult Data Date of Consult: 12/28/23 [...] She denies any previous DVTs or PEs. [facility] Medical History Anemia Anxiety Aortic stenosis [...] mg chewable tablet 81 mg PO DAILY [facility] 01/21/16 [History Last Taken 08/12/23] albuterol [...] % (Auto) 51.7, Lymph % (Auto) 37.1, Montrose % (Auto) 6.6, Eos % (Auto) 3.1, [...] Std Deviation 46.1 H, RDW Coeff of Ivjay 15.3 H, Plt Count 215, MPV 11.1, [...] 23:29 EDT Reading Location ID and State: 140 / [employer] , Service support , Hip/Pelvis X-Ray 12/27/23 23:05 IMPRESSION: Acute impacted fracture of the transcervical femoral neck. Electronically Signed: Weston Patel MD at 23:30 EDT Reading Location ID and State: 1407 / [employer] , Service support , Assessment & [...] rehab. Patient's projected recovery will likely require shelter or intensive inpatient rehabilitation prior to discharge back home. (2) Falls: (3) Weakness: (4) Microcytic anemia: (5) Chronic renal failure, stage 3 (moderate): QUALIFIERS: Chronic kidney disease stage 3 subtype: unspecified whether 3a or 3b Qualified Code(s): N18.30 - Chronic kidney disease, stage 3 unspecified 12/28/23 1259 <Electronically signed by Gabriel Byrd MD> Cosigner Signature (if applicable): CC: Dr. Ramone Smiley MD~ Signed [facility] Work Phone: 1(782) 899-396504-29-2024 Procedure [facility] 12-28-2023 Progress note Author Sunny Bell [facility] December 28, 2023 11:23am Note Date/Time December 28, 2023 9:5 2am [facility] Medical Records Department [address] [place] [address] Progress Note - Hospitalist 12/28/23 0949 MR#: [id number] Acct: [id number] Name: OLGA DONALDSON Rep #:[id number] : 1945 78 From: Sunny Blue PCP: Dr. Ramone Smiley MD Status:ADM IN Location: [place] [address] Reason for Visit Reason for Visit: Diagnoses [...] % (Auto) 51.7, Lymph % (Auto) 37.1, [place]rose % (Auto) 6.6, Eos % (Auto) 3.1, [...] 23:29 EDT Reading Location ID and State: 0206 / [employer] , Service support , Hip/Pelvis X-Ray 12/27/23 23:05 IMPRESSION: Acute impacted fracture of the transcervical femoral neck. Electronically Signed: Weston Patel MD at 23:30 EDT Reading Location ID and State: 1317 / [employer] , Service support , Physical Exam [...] Patient is a 78-year-old female who presented [facility] ED on 12/27/2023 with left hip pain after a fall at home. She got up from the couch toself catheter, got her walker turned and then lost balance and fell on her left hip. 1. Acute debility due to left impacted transcervical femoral neck fracture. ? Admit under inpatient status to [facility]. Orthopedics consulted. N.p.o. at midnight. PT/OT/case [...] disposition: TBD Charges/Coding Visit Charges Inpatient E&M: 97240 Subs Hosp L2 12/28/23 1123 <Electronically signed by Sunny Bell MD> Cosigner Signature (if applicable): CC: ~ Signed [facility] Work Phone: 1(856) 588-704704-29-2024 History and physical note Author Nestor Bartlett [facility] December 28, 2023 4:47am Note Date/Time December 27, 2023 11: 30pm [facility] Medical Records Department [address] [place] [address] H&P Exam - Hospitalist 12/27/23 2330 MR#: [id number] Acct: [id number] Name: OLGA DONALDSON Rep #:[id number] : 1945 78 From: Nestor Cloud richar RAYMUNDO PCP: Dr. Ramone Smiley MD Status:ADM IN Location: [place] [address] HPI - General General Date of Admission: 12/27/23 Date of Service: 12/27/23 Chief Complaint: Left hip fracture HPI Narrative OLGA DONALDSON, is a 78 F who presented to [facility] ED on 12/27/2023 with left hip pain [...] Patient will be admitted for further management. [facility] Medical History Anemia Anxiety Aortic stenosis [...] % (Auto) 51.7, Lymph % (Auto) 37.1, Montrose % (Auto) 6.6, Eos % (Auto) 3.1, [...] Patient is a 78-year-old female who presented [facility] ED on 12/27/2023 with left hip pain after a fall at home. 1. Left femoral neck fracture ? Admit under inpatient status to [facility]. Orthopedics consulted. N.p.o. at midnight. Preop [...] 75 minutes. Charges/Coding Visit Charges Inpatient E&M: 75224 Init Hosp L3 12/28/23 0447 <Electronically signed by Nestor Bartlett DO> Cosigner Signature (if applicable): CC: Dr. Nestor Bartlett DO; Dr. Ramone Smiley MD~ Signed [facility] Work Phone: 1(576) 781-123504-29-2024 Discharge summary Author Queta Cortez [facility] December 28, 2023 2:33am Note Date/Time December 27, 2023 10: 23pm [facility] Medical Records Department [address] [place] [address] Emergency Department Summary 12/27/23 MR#: [id number] Acct: [id number] Name: OLGA DONALDSON Rep #:[id number] : 1945 78 From: Queta Cortez MD PCP: Dr. Ramone Smiley MD Status:ADM IN Location: MI3 [id number] HPI HPI - Fall History of Present [...] aspirin but no other form of anticoagulant. [facility] Medical History Anemia Anxiety Aortic stenosis [...] Medical decision making narrative: Patient placed on equipment monitor phototypesetting. Patient given morphine and Zofran for pain [...] % (Auto) 51.7 Lymph % (Auto) 37.1 Montrose % (Auto) 6.6 Eos % (Auto) 3.1 [...] seen Dr. Ravi previously prior to his [facility]. Dr. Byrd is on-call for [facility] and I will speak with him [facility] and need for surgical repair. Discharge Plan Dx/Rx/DC Orders Clinical Impression: Fracture of hip, left, closed Disposition Disposition: Acute Care Hospital [facility] What to do if you have Problems For any increased pain, shortness of breath, bleeding, nausea or vomiting, chestpain, or any unexpected problems, contact your Primary Care Provider. Call [facility] ([phone]) or report to the closest Emergency Room. Call 911 if necessary. 12/28/23 0233 <Electronically signed by Queta Cortez MD> Cosigner Signature (if applicable): CC: Dr. Ramone Smiley MD ~ Signed [facility] Work Phone: 1(288) 623-993212-18-2023 Consult note Author Derrick Hallman [facility] August 17, 2023 11:38am Note Date/Time August 17, 2023 11:38am [facility] Medical Records Department [address] [place] [address] Counseling Note - Pharmacy 08/17/23 1137 MR#: [id number] Acct: [id number] Name: OLGA DONALDSON Rep #:[id number] : 1945 78 From: Derrick Hallman PCP: Dr. Ramone Smiley MD Status:ADM IN Y Location: [place] [id number] Pharmacy Service has performed [...] mg chewable tablet 81 mg PO DAILY [facility] 01/21/16 albuterol sulfate 90 mcg/actuation aerosol [...] Signature (if applicable): Date CC: ~ Signed [facility] Work Phone: 1(475) 692-575212-18-2023 Discharge summary Author Sandeep Denson [facility] August 17, 2023 11:20am Note Date/Time August 17, 2023 11:12am [facility] Medical Records Department [address] [place] [address] Discharge Summary 08/17/23 1111 MR#: [id number] Acct: [id number] Name: OLGA DONALDSON Rep #:[id number] : 1945 78 From: Sandeep Denson MD PCP: Dr. Ramone Smiley MD Status:ADM IN Location: [facility] [id number]- 1 Providers Date of Admission: 08/13/23 Date [...] mg chewable tablet 81 mg PO DAILY [facility] 01/21/16 albuterol sulfate 90 mcg/actuation [...] - Requested for PT OT eval and medical social worker to assist with discharge planning 4. Diabetes [...] Active Protocol: Document 08/14/23 13:49 AG (Rec: 12/15/23 13:49 AG [id number]) Nutrition Malnutrition Evidence of Malnutrition Exists Yes [...] Right Blood Culture - Final GNR lactose wet machine cutter 08/13/23 11:10 Blood Culture (Wb) - Anticubital [...] Anne Marie Marshall MD [Med Staff - Matchbook Maker] - 08/25/23 10:30 am Disposition Disposition (needs filled in before D/C Order can be placed): Home, Self Care Charges/Coding Visit Charges Inpatient E&M: 50775 Disch Hosp >30min 08/17/23 1120 <Electronically signed by Sandeep Denson MD> Cosigner Signature (if applicable): CC: Dr. Sandeep Denson MD; Dr. Ramone Smiley MD~ Signed [facility] Work Phone: [phone]) 757-383612-17-2023 Progress note Author Nestor Bartlett [facility] August 16, 2023 1:08pm Note Date/Time August 16, 2023 1:08pm [facility] Medical Records Department [address] [place] [address] Progress Note - Hospitalist 08/16/23 1300 MR#: [id number] Acct: [id number] Name: OLGA DONALDSON Rep #:[id number] : 1945 78 From: Nestor roman DO PCP: Dr. Ramone Smiley MD Status:ADM IN Location: [place] [address] Reason for Visit Reason for Visit: Diagnoses [...] / 2330 2200 / 2500 2074 / 2074 Balance 2019 / 1319 270 / 120 -1518.33 / -1518.33 Medical Nutrition Assessment Dietitian: Malnutrition Criteria Met Start: 08/14/23 13:49 Freq: Status: Active Protocol: Document 08/14/23 13:49 AG (Rec: 08/14/23 13:49 AG [id number]) Nutrition Malnutrition Evidence of Malnutrition Exists Yes [...] Right Blood Culture - Final GNR lactose wet machine cutter 08/13/23 11:10 Blood Culture (Wb) - Anticubital [...] is a 78-year-old female who presented to [facility] ED on 08/13/2023 with increasing generalized weakness [...] 35 minutes. Charges/Coding Visit Charges Inpatient E&M: 32695 Subs Hosp L2 08/16/23 1308 <Electronically signed by Nestor Bartlett DO> Cosigner Signature (if applicable): CC: ~ Signed [facility] Work Phone: [phone]) 393-678712-16-2023 Progress note Author Nestor [facility] August 15, 2023 1:28pm Note Date/Time August 15, 2023 1:24pm [facility] Medical Records Department [address] [facility] [place] [address] Progress Note - Hospitalist 08/15/23 1317 MR#: [id number] Acct: [id number] Name: OLGA DONALDSON Rep #:[id number] : 1945 78 From: Nestor roman DO PCP: Dr. Ramone Smiley MD Status:ADM IN Location: [place] [address] Reason for Visit Reason for Visit: Diagnoses [...] 08/14/23 13:49 AG (Rec: 08/14/23 13:49 AG [id number]) Nutrition Malnutrition Evidence of Malnutrition Exists Yes [...] Right Blood Culture - Preliminary GNR lactose wet machine cutter 08/13/23 11:00 Nasal Secretion SARS-CoV-2 & FLU [...] is a 78-year-old female who presented to [facility] ED on 08/13/2023 with increasing generalized weakness [...] cultures preliminarily positive for gram-negative wes lactose wet machine cutter, follow-up speciation and sensitivities. 3. LIA, resolved [...] 35 minutes. Charges/Coding Visit Charges Inpatient E&M: 95376 Subs Hosp L2 08/15/23 1328 <Electronically signed by Nestor Bartlett DO> Cosigner Signature (if applicable): CC: ~ Signed [facility] Work Phone: [phone] 393-803112-15-2023 Progress note Author Nestor [facility] August 14, 2023 3:08pm Note Date/Time August 14, 2023 2:58pm [facility] Medical Records Department [address] [place] [address] Progress Note - Hospitalist 08/14/23 1454 MR#: [id number] Acct: [id number] Name: OLGA DONALDSON Rep #:[id number] : 1945 78 From: Nestor roman DO PCP: Dr. Ramone Smiley MD Status:ADM IN Location: [place] [address] Reason for Visit Reason for Visit: Diagnoses [...] 08/14/23 13:49 AG (Rec: 08/14/23 13:49 AG [id number]) Nutrition Malnutrition Evidence of Malnutrition Exists Yes [...] (Auto) 79.7 H, Lymph% (Auto) 11.1 L, Montrose % (Auto) 6.1, Eos % (Auto) 0.6, [...] Catheterized Urine Culture - Preliminary GNR lactose wet machine cutter 08/13/23 12:05 Blood Culture (Wb) - Anticubital Right Blood Culture - Preliminary GNR lactose wet machine cutter 08/13/23 11:10 Blood Culture (Wb) - Anticubital Right Blood Culture - Preliminary GNR lactose wet machine cutter 08/13/23 11:00 Nasal Secretion SARS-CoV-2 & FLU [...] is a 78-year-old female who presented to [facility] ED on 08/13/2023 with increasing generalized weakness [...] cultures preliminarily positive for gram-negative wes lactose wet machine cutter, follow-up speciation and sensitivities. 3. LIA, resolved [...] 35 minutes. Charges/Coding Visit Charges Inpatient E&M: 46045 Subs Hosp L2 08/14/23 1508 <Electronically signed by Nestor Bartlett DO> Cosigner Signature (if applicable): CC: ~ Signed [facility] Work Phone: [phone] 758-862412-14-2023 Discharge summary Author [facility] August 13, 2023 3:29pm Note Date/Time August 13, 2023 10:40am [facility] Medical Records Department [address] [place] [address] Emergency Department Summary 08/13/23 MR#: [id number] Acct: [id number] Name: OLGA DONALDSON Rep #:[id number] : 1945 78 From: Robert Allison DO PCP: Dr. Ramone Smiley MD Status:ADM IN Location: [place] [address] HPI History of Present Illness Chief Complaint: [...] She denies chest pain. She self caths. [facility] Medical History Anemia Anxiety Aortic stenosis [...] mg chewable tablet 81 mg PO DAILY [facility] 01/21/16 [History Last Taken 08/12/23] albuterol [...] Physical Exam Const Vital Signs: 08/13/23 10:03 12/14/23 10:12 08/13/23 14:15 Temperature 97.9 F 98.6 [...] 82.7 H Lymph % (Auto) 9.4 L Montrose % (Auto) 6.1 Eos % (Auto) 0.1 [...] Sl. Cloudy Urine pH 5.0 Ur Specific [place] 1.015 Urine Protein 30 H Urine Glucose [...] Acute hyponatremia Disposition Disposition: Acute Care Hospital [facility] Discharge Date/Time: 08/13/23 14:54 What to do if you have Problems For any increased pain, shortness of breath, bleeding, nausea or vomiting, chestpain, or any unexpected problems, contact your Primary Care Provider. Call [facility] ([phone]) or report to the closest Emergency Room. Call 911 if necessary. 08/13/23 1529 <Electronically signed by Robert Allison DO> Cosigner Signature (if applicable): CC: Dr. Ramone Smiley MD ~ Signed [facility] Work Phone: 1(720) 989-321712-14-2023 History and physical note Author Heydi Amaya [facility] August 13, 2023 2:47pm Note Date/Time August 13, 2023 2:33pm [facility] Medical Records Department [address] [place] [address] H&P Exam - Hospitalist 08/13/23 1431 MR#: [id number] Acct: [id number] Name: OLGA DONALDSON Rep #:[id number] : 1945 78 From: Heydi Amaya MD PCP: Dr. Ramone Smiley MD Status:ADM IN Location: [place] [address] HPI - General General Date of Admission: 08/13/23 Date of Service: 08/13/23 Chief Complaint: Increasing weakness HPI Narrative OLGA DONALDSON, is [id number] female history of GERD, COPD, hypertension, diabetes, chronic urinary retention with self cathing presented to [facility] 08/13/2023 with increasing generalized weakness and falls. [...] No other acute complaints at this time. [facility] Medical History Anemia Anxiety Aortic stenosis [...] (Auto) 82.7 H, Lymph% (Auto) 9.4 L, Montrose % (Auto) 6.1, Eos % (Auto) 0.1, [...] Sl. Cloudy, Urine pH 5.0, Ur Specific [place] 1.015, Urine Protein 30 H, Urine Glucose [...] Amaya MD Charges/Coding Visit Charges Inpatient E&M: 74531 Init Hosp L2 08/13/23 1447 <Electronically signed by Heydi Amaya MD> Cosigner Signature (if applicable): CC: Dr. Ramone Smiley MD; Dr. Heydi Amaya MD~ Signed [facility] Work Phone: [phone]) 900-363905-31-[address] Lockwood [facility] January 28, 2023 4:30pm Note Date/Time January 28, 2023 3:17p m [facility] Medical Records Department [address] [place] [address] Emergency Department Summary 01/28/23 MR#: [id number] Acct: [id number] Name: OLGA DONALDSON Rep #:[id number] : 1945 78 From: Joseph Lockwood MD [...] pain which she has every single day. [facility] Medical History Anemia Anxiety Aortic stenosis [...] 100 unit/mL subcutaneous solution 22 unit SQ BID yznoeapi81/03/20 [History Last Taken Unknown] insulin detemir U-100 [...] % (Auto) 56.6 Lymph % (Auto) 34.2 Montrose % (Auto) 5.6 Eos % (Auto) 2.6 [...] UNIT/ML solution 22 unit SQ BIDCM vitamin U-nptxwpscflic-phlqahg 500 MG tablet,chewable 250 mg PO DAILY Primary Care Provider: Ramone Smiley Referrals: Ramone Smiley MD [Primary Care Provider] - 3-5 Days Disposition Disposition: Home, Self Care What to do if you have Problems For any increased pain, shortness of breath, bleeding, nausea or vomiting, chestpain, or any unexpected problems, contact your Primary Care Provider. Call [facility] ([phone]) or report to the closest Emergency Room. Call 911 if necessary. 01/28/23 1630 <Electronically signed by Joseph Lockwood MD> Cosigner Signature (if applicable): CC: Dr. Ramone Smiley MD ~ Signed [facility] Work Phone: [phone]) 431-590209-07-2022 NoteHNO ID: [id number] Author: 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 APRN.SHIPPING AND RECEIVING CLERK Service: ? Author Type: Nurse Practitioner Type: [...] an every 2-week basis for 4 cycles (CALGB-51341). Completed a year of trastuzumab 06/16/06. Referred back or anemia. Admitted to [facility] 12/02/2019 for chest pain with ambulation. Initial [...] 1.00 - 4.00 k/uL 2.70 2.30 2.03 Montrose% % 7.0 6.6 6.9 Abs Montrose <0.87 k/uL 0.49 0.47 0.47 Eosin% % [...] loss - ICD9: 280.0, (more content not included)...[facility]09-07-2022 History of Present illness Narrative* 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, BLANCA.SHIPPING AND RECEIVING CLERK - 05/07/2022 1:33 PM EDT Chief Complaint [...] an every 2-week basis for 4 cycles (CALGB-58631). Completed a year of trastuzumab 06/16/06. Referred back or anemia. Admitted to [facility] 12/02/2019 for chest pain with ambulation. Initial [...] 1.00 - 4.00 k/uL 2.70 2.30 2.03 Montrose% % 7.0 6.6 6.9 Abs [place] <0.87 k/uL 0.49 0.47 0.47 Eosin% % [...] visit. 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 APRN.MARLI documented in this encounterMer[facility]06-13-2022 Miscellaneous Notes* Telephone Encounter - Stacie Varner LPN - 02/10/2022 8:33 AM EDT Pt called and notified, pt voices understanding. Stacie Varner LPN * Telephone Encounter - Joseph Rolle DO - 02/10/2022 6:20 AM EDT Can let her know CBC and iron levels doing well. Follow up as scheduled. Joseph Rolle DO documented in this encounterMer[facility]01-31-2022 Miscellaneous Notes* Telephone Encounter - Joseph [...] filed. Joseph Rolle DO documented in this encounterMercy [facility]07-15-2021 Miscellaneous Notes* Telephone Encounter - Marina [...] drive and will complete lab work and case picker stool cards 03/21/2021, same day as [...] may have had one more recently at [facility]). Add on for 5 more doses of iron sucrose and repeat CBC/Iron studies about a month after completing. Joseph Rolle DO documented in this encounterOhio[facility] note Author Eboni Chan [facility] December 30, 2023 2:23pm Note Date/Time December 30, 2023 2:24pm [facility] Medical Records Department [address] [place] [address] Counseling Note - Pharmacy 12/30/23 1423 MR#: [id number] Acct: [id number] Name: OLGA DONALDSON Rep #:[id number] : 1945 78 From: Eboni Chan PCP: Dr. Ramone Smiley MD Status:ADM IN Location: [facility] [place] [place] [id number] Pharmacy ID Med Reconciliation Pharmacy Service has [...] Signature (if applicable): Date CC: ~ Signed [facility] Work Phone: Consult note Author Eboni Chan [facility] Note Date/Time January 24, 2025 2:52p m [facility] Medical Records Department [address] [place] [address] Counseling Note - Pharmacy 01/24/25 1451 MR#: [id number] Acct: [id number] Name: OLGA DONALDSON Rep #:[id number] : 1945 80 From: Eboni Chan PCP: Dr. Ramone Smiley MD Status:ADM IN Location: [place] [id number] Counseling Pharmacy Service has performed discharge [...] mg chewable tablet 81 mg PO DAILY [facility] 01/21/16 magnesium oxide 400 mg [...] Signature (if applicable): Date CC: ~ Signed [facility] Work Phone: Discharge summary Author Sunny Bell [facility] December 30, 2023 2:14pm Note Date/Time December 30, 2023 2:05pm [facility] Medical Records Department [address] [place] [address] Transfer to [facility] MR#: [id number] Acct: [id number] Name: OLGA DONALDSON Rep #:[id number] : 1945 78 From: Sunny Blue PCP: Dr. Ramone Smiley MD Status:ADM IN Certification of patient admission REQUIRED AT TIME OF ADMISSION. I CERTIFY THAT POST-HOSPITAL ECF SERVICES ARE REQUIRED TO BE GIVEN ON AN IN-PATIENT BASIS BECAUSE OF THE ABOVE NAMED PATIENT'S NEED FOR INTERMEDIATE CARE ON A CONTINUING BASIS FOR THE CONDITION(S) FOR WHICH HE/SHE WAS RECEIVING IN-PATIENT HOSPITAL SERVICES PRIOR TO HIS/HER TRANSFER TO THE F. 12/30/23 1414<Electronically signed by Sunny Bell MD> [...] Patient is a 78-year-old female who presented [facility] ED on 12/27/2023 with left hip pain after a fall at home. She got up from the couch toself catheter, got her walker turned and then lost balance and fell on her left hip. 1. Acute debility due to left impacted transcervical femoral neck fracture. ? Admit under inpatient status to [facility]. Orthopedics consulted. N.p.o. at midnight. PT/OT/case [...] cousin over the phone who lives in [place]. Patient is clinically doing well. Currently has [...] in before D/C Order can be placed): [facility] Facility 12/30/23 1414 <Electronically signed by Sunny Bell MD> Cosigner Signature (if applicable): CC: Dr. Nestor Bartlett DO; Dr. Ramone Smiley MD; Dr. Gabriel Byrd MD ~ [facility] Work Phone: Discharge summary Author Sunny Bell [facility] December 30, 2023 2:26pm Note Date/Time December 30, 2023 2:21pm [facility] Medical Records Department [address] [place] [address] Discharge Summary 12/30/23 1414 MR#: [id number] Acct: [id number] Name: OLGA DONALDSON Rep #:[id number] : 1945 78 From: Sunny Blue PCP: Dr. Ramone Smiley MD Status:ADM IN [facility] Date of Admission: 12/27/23 Date of [...] Patient is a 78-year-old female who presented [facility] ED on 12/27/2023 with left hip pain after a fall at home. She got up from the couch toself catheter, got her walker turned and then lost balance and fell on her left hip. 1. Acute debility due to left impacted transcervical femoral neck fracture. ? Admit under inpatient status to [facility]. Orthopedics consulted. N.p.o. at midnight. PT/OT/case [...] cousin over the phone who lives in [place]. Patient is clinically doing well. Currently has [...] mg chewable tablet 81 mg PO DAILY [facility] 01/21/16 albuterol sulfate 90 mcg/actuation aerosol [...] % (Auto) 63.9, Lymph % (Auto) 25.3, [place] % (Auto) 8.7, Eos % (Auto) 1.4, [...] in before D/C Order can be placed): [facility] Facility Charges/Coding Visit Charges Inpatient E&M: 90243 Disch Hosp >30min 12/30/23 1426 <Electronically signed by Sunny Bell MD> Cosigner Signature (if applicable): CC: Dr. Ramone Smiley MD; Dr. Sunny Bell MD; Dr. Gabriel Byrd MD~ Signed [facility] Work Phone: Discharge summary Author [facility] Note Date/Time January 24, 2025 1:27p m [facility] Medical Records Department [address] [place] [address] Instructions for Home/Discharge Instructions 01/24/25 1326 MR#: [id number] Acct: [id number] Name: OLGA DONALDSON Rep #:[id number] : 1945 80 From: Melba Hartmann MD [...] DO; Dr. Marcelina Soto MD ~ Signed [facility] Work Phone: Discharge summary Author [facility] Note Date/Time January 26, 2025 5:10a m [facility] Medical Records Department [address] [place] [address] Emergency Department Summary 01/26/25 MR#: [id number] Acct: [id number] Name: OLGA DONALDSON Rep #:[id number] : 1945 80 From: Jg Bryan DO [...] symptoms and therefore comes in for evaluation [facility] Medical History Fracture of hip, left, [...] cardiac dysrhythmia. Patient was kept on the equipment monitor phototypesetting and there was no dysrhythmia noted. Blood [...] % (Auto) 65.0 Lymph % (Auto) 25.1 [place] % (Auto) 6.7 Eos % (Auto) 2.8 [...] you have any further concerns Print Language: Honduran Disposition Disposition: Home, Self Care What to do if you have Problems For any increased pain, shortness of breath, bleeding, nausea or vomiting, chestpain, or any unexpected problems, contact your Primary Care Provider. Call [facility] ([phone]) or report to the closest Emergency Room. Call 911 if necessary. 01/26/25 0510 <Electronically signed by Jg Bryan DO> Cosigner Signature (if applicable): CC: Dr. Ramone Smiley MD ~ Signed [facility] Work Phone: Discharge summary Author Aj Holley [facility] Note Date/Time February 04, 2025 10:27 am [facility] Medical Records Department [address] [place] [address] Emergency Department Summary 02/04/25 MR#: [id number] Acct: [id number] Name: OLGA DONALDSON Rep #:[id number] : 1945 80 From: Aj Holley MD [...] of the couch, and has no pain. [facility] Medical History Elevated troponin Coronary artery disease [...] DAILY 01/15/25 History 0.005 % [facility] psyllium husk 0.4 gram capsule 0.4 g [...] 40 mg (2 x 20 mg) PO BREAK ST 01/24/25 Unknown Rx days #10 tabs sacubitril [...] 75.4 H Lymph % (Auto) 15.7 L [place] % (Auto) 6.6 Eos % (Auto) 1.7 [...] Primary Care Provider: Ramone Smiley Referrals: Ramone mSiley MD [Primary Care Provider] - Print Language: Honduran What to do if you have Problems For any increased pain, shortness of breath, bleeding, nausea or vomiting, chestpain, or any unexpected problems, contact your Primary Care Provider. Call [facility] ([phone]) or report to the closest Emergency Room. [...] cc: Dr. Ramone Smiley MD ~* Signed [facility] Work Phone: Evaluation note* Diagnosis Onset Date Resolution Status Multiple thyroid nodules acu te Chronic renal failure, stage 3 (moderate) chronic Hypercalcemia chronic Abscess acute Abscess acute Abscess acute [facility] Work Phone: Evaluation note* Diagnosis Iron deficiency anemia due to chronic blood loss- Primary Iron deficiency anemia secondary to blood loss (chronic) documented in this encounter [facility]* Diagnosis Onset Date Resolution Status Abscess acute Abscess acute Abscess acute Abscess acute Abscess acute Paronychia of left index finger acute [facility] Work Phone: Evaluation note* Diagnosis Iron deficiency anemia due to chronic blood loss- Primary Iron deficiency anemia secondary to blood loss (chronic) documented in this encounter [facility] note* Diagnosis Anemia, unspecified type- Primary documented in this encounter [facility] note* Diagnosis Iron deficiency anemia due to chronic blood loss- Primary Iron deficiency anemia secondary to blood loss (chronic) documented in this encounter [facility] noteNo assessment information availableWCincinnati [facility] Work Phone: Evaluation note* Diagnosis Onset Date Resolution Status Gastroenteritis acute [facility] Work Phone: Evaluation note* Diagnosis Onset Date Resolution Status Gastroenteritis acute Falls acute Weakness acute Asthma chronic COPD (chronic obstructive pulmonary disease) chronic GERD (gastroesophageal reflux disease) chronic History of malignant neoplasm of breast chronic Hypertension chronic Neurogenic bladder chronic Type 2 diabetes mellitus chr onic Acute hyponatremia resolved Acute UTI resolved LIA (acute kidney injury) re solved [facility] Work Phone: Evaluation note* Diagnosis Onset Date Resolution Status Fracture of hip, left, closed acute [facility] Work Phone: Evaluation note* Diagnosis Onset Date Resolution Status Falls acute Fracture of hip, left, closed acute Microcytic anemia acute Weakness acute Chronic renal failure, stage 3 (moderate) chronic Hypercalcemia chronic [facility] Work Phone: Evaluation note* Diagnosis Onset Date Resolution Status Gastroenteritis acute Acute hyponatremia acute Acute UTI acute LIA (acute kidney injury) ac jason [place] acute Weakness acute Asthma chronic COPD (chronic obstructive pulmonary disease) chronic GERD (gastroesophageal reflux disease) chronic History of malignant neoplasm of breast chronic Hypertension chronic Neurogenic bladder chronic Type 2 diabetes mellitus chr onic [facility] Work Phone: History and physical note Author Heydi Amaya [facility] August 13, 2023 2:47pm Note Date/Time August 13, 2023 2:33pm [facility] Medical Records Department [address] [place] [address] H&P Exam - Hospitalist 08/13/23 1431 MR#: [id number] Acct: [id number] Name: OLGA DONALDSON Rep #:[id number] : 1945 78 From: Heydi Amaya MD PCP: Dr. Ramone Smiley MD Status:ADM IN Location: U [id number]- [id number] HPI - General General Date of Admission: 08/13/23 Date of Service: 08/13/23 Chief Complaint: Increasing weakness HPI Narrative OLGA DONALDSON, is [id number] female history of GERD, COPD, hypertension, diabetes, chronic urinary retention with self cathing presented to [facility] 08/13/2023 with increasing generalized weakness and falls. [...] No other acute complaints at this time. [facility] Medical History Anemia Anxiety Aortic stenosis [...] mg chewable tablet 81 mg PO DAILY [facility] 01/21/16 [History Last Taken 08/12/23] albuterol [...] (Auto) 82.7 H, Lymph% (Auto) 9.4 L, [place] % (Auto) 6.1, Eos % (Auto) 0.1, [...] Sl. Cloudy, Urine pH 5.0, Ur Specific [place] 1.015, Urine Protein 30 H, Urine Glucose [...] 11:04 EST Reading Location ID and State: [address] [place] [address] , Service support , Assessment & Plan [...] Amaya MD Charges/Coding Visit Charges Inpatient E&M: 23095 Init Hosp L2 08/13/23 5661 <Electronically signed by Heydi Amaya MD> Cosigner Signature (if applicable): CC: Dr. Ramone Smiley MD; Dr. Heydi Amaya MD~ Signed [facility] Work Phone: History and physical note Author Tono Kitchenak [facility] Note Date/Time February 09, 2025 3:52 pm [facility] Medical Records Department [address] [place] [address] H&P Exam - Hospitalist 02/09/25 1525 MR#: [id number] Acct: [id number] Name: OLGA DONALDSON Rep #:[id number] : 1945 80 From: Tono BHATTI PCP: [...] tightness, no dizziness or lightheadedness, no palpitations. [facility] Medical History COPD with exacerbation Anemia [...] (Auto) 86.9 H, Lymph % (Auto) 7.3L, [place] % (Auto) 4.5, Eos % (Auto) 0.1, [...] degree of bibasilar linear atelectasis. Reading Location: [facility] Assessment & Plan Assessment/Plan (1) COPD exacerbation: [...] DAVY Dykes; Dr. Ramone Smiley MD~ Signed [facility] Work Phone: History and physical note Author Nestor Bartlett [facility] Note Date/Time February 15, 2025 2:57 pm [facility] Medical Records Department [address] [place] [address] H&P Exam - Hospitalist 02/15/25 1401 MR#: [id number] Acct: [id number] Name: OLGA DONALDSON Rep #:[id number] : 1945 80 From: Nestor roman DO PCP: Dr. Ramone Smiley MD Status:ADM JESS Location: [facility] [place] [place] HPI - General General Date of Admission: 02/15/25 Date of Service: 02/15/25 Chief Complaint: Shortness of breath, acute on chronic debility HPI Narrative OLGA DONALDSON, is a 80 F who presented to [facility] ED on 02/15/2025 with shortness of breath [...] currently. Will be admitted for further management. [facility] Medical History (Updated 02/15/25 @ 13:15 [...] 82.5 H, Lymph % (Auto) 10.9 L, [place] % (Auto) 4.8, Eos % (Auto) 0.7, [...] evidence of acute cardiopulmonary process. Reading [facility] Assessment & Plan Assessment/Plan (1) Generalized weakness: PLAN: Plan Patient is an 80-year-old female who presented [facility] ED on 02/15/2025 with recurrent shortness of breath and acute on chronic debility. 1. Acute on chronic debility ? Admit under observation status to [facility]. PT/OT/case management consulted. Multiple recent hospitalizations [...] 75 minutes. Charges/Coding Visit Charges Inpatient E&M: 43849 Init Hosp L3 02/15/25 7818 <Electronically signed by Nestor Bartlett DO> Cosigner Signature (if applicable): CC: Dr. Nestor Bartlett DO; Dr. Ramone Smiley MD~ Signed [facility] Work Phone: Hospital Discharge instructions Additional Instructions Chest x-ray negative. COVID, flu, RSV negative. Your glucose 321 the lab normal gap. You are given 10 units of short acting insulin. You were started on antibiotics and steroids. Your glucose will be elevated with the steroids. Continue insulin including your sliding scale. Next dose of antibiotics steroids is tomorrow. This was sent to [facility] Work Phone: Hospital Discharge instructions Additional Instructions Take medications as prescribed. Follow-up your doctor in outpatient setting. Return with worsening symptoms or concerns.[facility] Work Phone: Hospital Discharge instructions Additional Instructions Please try to sleep at more of a inclined position as this will help prevent increasing shortness of breath from your congestive heart failure. Your labs and images show that everything is improving from your recent hospitalization and therefore continue all of your home medications as directed. Return to the ER should you have any further concernsWCincinnati [facility] Work Phone: Hospital Discharge instructions Additional Instructions Continue your steroids and your nebulizer treatments as previously directed. Your chest x-ray did not show pneumonia today. Continue to wear your nasal cannula oxygen.[facility] Work Phone: Hospital Discharge instructionsAdditional Instructions Follow-up with your doctor in outpatient setting. Follow-up and urine culture. Take antibiotic as prescribed sent to your pharmacy. Urinalysis did show evidence of infection. Take MiraLAX twice daily until you are having good bowel movements then you can reduce to once daily. Return with any other concerns or worsening symptomsWCincinnati [facility] Work Phone: Reason for referral (narrative)No reason for referral information availableWCincinnati [facility] Work Phone: Summary Purpose Family History No [...] Yes December 02, 2021 8:47am Power of Medical Claims Examiner Yes December 02 8:47am Documents on File Type Date Recorded Patient Remedial Reading Teacher Expl anation Advance Directive(s) 05/12/2016 10:06 AM Advance Directive(s) 04/30/2016 11:10 AM Advance Directive(s) 02/19/2016 5:55 AM Advance Directive(s) 02/14/2016 3:07 PM Advance Directive Response Recorded Date/ Time Advance Directives Yes December 02 7:47am Living Will Yes July 14, 2 022 2:52pm Power of Medical Claims Examiner Yes July 14, 2022 2:52pm Name of Medical Power of Medical Claims Examiner son July 14, 2022 2:52pm Advance Directive Response Recorded Date/ Time Advance Directives Yes December 02 8:47am Living Will Yes July 14, 2 022 3:52pm Power of Medical Claims Examiner Yes July 14, 2022 3:52pm Advance Directive Response Recorded Date/ Time Name of Medical Power of Medical Claims Examiner SHANTELLE January 28, 2023 3:11pm Advance Directives Yes December 02 8:47am Living Will Yes January 28, 2023 3 :11pm Power of Medical Claims Examiner Yes January 28, 2023 3:11pm Advance Directive Response Recorded Date/ Time Name of Medical Power of Medical Claims Examiner Ursula Anika July 18, 2023 11:35pm Advance Directives Yes December 02 7:47am Living Will Yes July 18, 023 11:35pm Power of Medical Claims Examiner Yes July 18, 2023 11:35pm Advance Directive Response Recorded Date/ Time Name of Medical Power of Medical Claims Examiner . August 07, 2023 9:45pm Advance Directives Yes December 02 7:47am Living Will No August 13 023 3:22pm Power of Medical Claims Examiner No August 13, 2023 3:22pm Name of Medical Power of Medical Claims Examiner Ursula Donaldson July 18, 2023 11:35pm Advance Directive Response Recorded Date/ Time Advance Directives Yes December 02 8:47am Living Will No August 13 023 4:22pm Power of Medical Claims Examiner No August 13, 2023 4:22pm Advance Directive Response Recorded Date/ Time Advance Directives Yes December 02 8:47am Living Will No December 27, 2023 11:02pm Power of Medical Claims Examiner No December 26 11:02pm Advance Directive Response Recorded Date/ Time Advance Directives Yes December 02 8:47am Living Will No December 28, 2023 12:27am Power of Medical Claims Examiner No December 27 12:27am Advance Directive Response Recorded Date/ Time Name of Medical Power of Medical Claims Examiner . August 07, 2023 9:45pm Advance Directives Yes December 02 7:47am Living Will No August 13 023 11:05am Power of Medical Claims Examiner No August 13, 2023 11:05am Name of Medical Power of Medical Claims Examiner Ursula Donaldson July 18, 2023 11:35pm Advance Directive Response Recorded Date/ Time Do you have a Healthcare Power of Medical Claims Examiner? No January 07, 2025 3:00pm Advance Directives Yes December 02 8:47am Advance Directive Response Recorded Date/ Time Do you have a Healthcare Power of Medical Claims Examiner? No January 15, 2025 2:24pm Do you have a Healthcare Power of Medical Claims Examiner? No January 07, 2025 3:00pm Advance Directives Yes December 02 8:47am Advance Directive Response Recorded Date/ Time Do you have a Healthcare Power of Medical Claims Examiner? No January 15, 2025 2:24pm Do you have a Healthcare Power of Medical Claims Examiner? No January 20, 2025 4:39am Do you have a Healthcare Power of Medical Claims Examiner? No January 07, 2025 3:00pm Advance Directives Yes December 02 8:47am Advance Directive Response Recorded Date/ Time Do you have a Healthcare Power of Medical Claims Examiner? No January 15, 2025 2:24pm Do you have a Healthcare Power of Medical Claims Examiner? No January 20, 2025 4:39am Do you have a Healthcare Power of Medical Claims Examiner? No January 07, 2025 3:00pm Do you have a Healthcare Power of Medical Claims Examiner? No January 26, 2025 3:01am Advance Directives Yes December 02 8:47am Advance Directive Response Recorded Date/ Time Do you have a Healthcare Power of Medical Claims Examiner? No January 15, 2025 2:24pm Do you have a Healthcare Power of Medical Claims Examiner? No January 20, 2025 4:39am Do you have a Healthcare Power of Medical Claims Examiner? Yes February 04, 2025 6:32am Name of Medical Power of Medical Claims Examiner February 04, 2025 6:32am Do you have a Healthcare Power of Medical Claims Examiner? No January 07, 2025 3:00pm Do you have a Healthcare Power of Medical Claims Examiner? No January 26, 2025 3:01am Advance Directives Yes December 02 8:47am Advance Directive Response Recorded Date/ Time Do you have a Healthcare Power of Medical Claims Examiner? No January 15, 2025 2:24pm Do you have a Healthcare Power of Medical Claims Examiner? No January 20, 2025 4:39am Do you have a Healthcare Power of Medical Claims Examiner? Yes February 04, 2025 12:35pm Name of Medical Power of Medical Claims Examiner February 04, 2025 6:32am Do you have a Healthcare Power of Medical Claims Examiner? No January 07, 2025 3:00pm Do you have a Healthcare Power of Medical Claims Examiner? No January 26, 2025 3:01am Advance Directives Yes December 02 8:47am Advance Directive Response Recorded Date/ Time Do you have a Healthcare Power of Medical Claims Examiner? No January 15, 2025 2:24pm Do you have a Healthcare Power of Medical Claims Examiner? No January 20, 2025 4:39am Do you have a Healthcare Power of Medical Claims Examiner? Yes February 04, 2025 12:35pm Name of Medical Power of Medical Claims Examiner February 04, 2025 6:32am Do you have a Healthcare Power of Medical Claims Examiner? Yes February 09, 2025 12:01pm Name of Medical Power of Medical Claims Examiner ursula lees jr February 09, 2025 12:01pm Do you have a Healthcare Power of Medical Claims Examiner? No January 07, 2025 3:00pm Do you have a Healthcare Power of Medical Claims Examiner? No January 26, 2025 3:01am Advance Directives Yes December 02 8:47am Advance Directive Response Recorded Date/ Time Do you have a Healthcare Power of Medical Claims Examiner? No January 15, 2025 2:24pm Do you have a Healthcare Power of Medical Claims Examiner? No January 20, 2025 4:39am Do you have a Healthcare Power of Medical Claims Examiner? Yes February 04, 2025 12:35pm Name of Medical Power of Medical Claims Examiner February 04, 2025 6:32am Do you have a Healthcare Power of Medical Claims Examiner? Yes February 09, 2025 4:43pm Name of Medical Power of Medical Claims Examiner ursula lees jr February 09, 2025 4:43pm Do you have a Healthcare Power of Medical Claims Examiner? No January 07, 2025 3:00pm Do you have a Healthcare Power of Medical Claims Examiner? No January 26, 2025 3:01am Advance Directives Yes December 02 8:47am Advance Directive Response Recorded Date/ Time Do you have a Healthcare Power of Medical Claims Examiner? No January 15, 2025 2:24pm Do you have a Healthcare Power of Medical Claims Examiner? No January 20, 2025 4:39am Do you have a Healthcare Power of Medical Claims Examiner? Yes February 04, 2025 12:35pm Name of Medical Power of Medical Claims Examiner February 04, 2025 6:32am Do you have a Healthcare Power of Medical Claims Examiner? Yes February 09, 2025 4:43pm Name of Medical Power of Medical Claims Examiner ursula lees jr February 09, 2025 4:43pm Do you have a Healthcare Power of Medical Claims Examiner? Yes February 15, 2025 8:36am Do you have a Healthcare Power of Medical Claims Examiner? No January 07, 2025 3:00pm Do you have a Healthcare Power of Medical Claims Examiner? No January 26, 2025 3:01am Advance Directives Yes December 02 8:47am Advance Directive Response Recorded Date/ Time Do you have a Healthcare Power of Medical Claims Examiner? No January 15, 2025 2:24pm Do you have a Healthcare Power of Medical Claims Examiner? No January 20, 2025 4:39am Do you have a Healthcare Power of Medical Claims Examiner? Yes February 04, 2025 12:35pm Name of Medical Power of Medical Claims Examiner February 04, 2025 6:32am Do you have a Healthcare Power of Medical Claims Examiner? Yes February 09, 2025 4:43pm Name of Medical Power of Medical Claims Examiner ursula teo bradshaw February 09, 2025 4:43pm Do you have a Healthcare Power of Medical Claims Examiner? Yes February 15, 2025 3:20pm Do you have a Healthcare Power of Medical Claims Examiner? No January 07, 2025 3:00pm Do you have a Healthcare Power of Medical Claims Examiner? No January 26, 2025 3:01am Advance Directives Yes December 02 8:47am Advance Directive Response Recorded Date/ Time Do you have a Healthcare Power of Medical Claims Examiner? No January 15, 2025 2:24pm Do you have a Healthcare Power of Medical Claims Examiner? No January 20, 2025 4:39am Do you have a Healthcare Power of Medical Claims Examiner? Yes February 04, 2025 12:35pm Name of Medical Power of Medical Claims Examiner February 04, 2025 6:32am Do you have a Healthcare Power of Medical Claims Examiner? Yes February 09, 2025 4:43pm Name of Medical Power of Medical Claims Examiner ursula [email or web address] February 09, 2025 4:43pm Do you have a Healthcare Power of Medical Claims Examiner? Yes February 15, 2025 3:20pm Do you have a Healthcare Power of Medical Claims Examiner? No January 07, 2025 3:00pm Do you have a Healthcare Power of Medical Claims Examiner? No January 26, 2025 3:01am Do you have a Healthcare Power of Medical Claims Examiner? Yes February 18, 2025 8:56pm Advance Directives Yes December 02 8:47am Advance Directive Response Recorded Date/ Time Do you have a Healthcare Power of Medical Claims Examiner? No January 15, 2025 2:24pm Do you have a Healthcare Power of Medical Claims Examiner? No January 20, 2025 4:39am Do you have a Healthcare Power of Medical Claims Examiner? Yes February 04, 2025 12:35pm Name of Medical Power of Medical Claims Examiner February 04, 2025 6:32am Do you have a Healthcare Power of Medical Claims Examiner? Yes February 09, 2025 4:43pm Name of Medical Power of Medical Claims Examiner ursula lees jr February 09, 2025 4:43pm Do you have a Healthcare Power of Medical Claims Examiner? Yes February 15, 2025 3:20pm Do you have a Healthcare Power of Medical Claims Examiner? No January 07, 2025 3:00pm Do you have a Healthcare Power of Medical Claims Examiner? No January 26, 2025 3:01am Do you have a Healthcare Power of Medical Claims Examiner? Yes February 18, 2025 8:56pm Do you have a Healthcare Power of Medical Claims Examiner? Yes March 04, 2025 6:52pm Advance Directives Yes December 02 8:47am Chief [...] sob January 26, 2025 3:00a m S/P [facility] 01/24 (PCU) January 31, 2025 1:42p m [...] sob January 26, 2025 3:00a m S/P [facility] 01/24 (PCU) January 31, 2025 1:42p m [...] sob January 26, 2025 3:00a m S/P [facility] 01/24 (PCU) January 31, 2025 1:42p m [...] sob January 26, 2025 3:00a m S/P [facility] 01/24 (PCU) January 31, 2025 1:42p m [...] sob January 26, 2025 3:00a m S/P [facility] 01/24 (PCU) January 31, 2025 1:42p m [...] sob January 26, 2025 3:00a m S/P [facility] 01/24 ([facility]) January 31, 2025 1:42p m HYPOXIA, [...] sob January 26, 2025 3:00a m S/P [facility] 01/24 ([facility]) January 31, 2025 1:42p m HYPOXIA, [...] sob January 26, 2025 3:00a m S/P [facility] 01/24 (PCU) January 31, 2025 1:42p m [...] 5:04pm sob February 18, 2025 8:49 pm Chief Complaint Admit Date LT HIP/PT HAS [...] sob January 26, 2025 3:00a m S/P [facility] 01/24 (PCU) January 31, 2025 1:42p m [...] 5:04pm sob February 18, 2025 8:49 pm urinary March 04, 2025 6:35p m Chief Complaint Admit Date LT HIP/PT [...] sob January 26, 2025 3:00a m S/P [facility] 01/24 (U) January 31, 2025 1:42p m [...] 5:04pm sob February 18, 2025 8:49 pm urinary March 04, 2025 6:35p m CHF; ELEVATED TROPONINS March 07, 2025 7 :02am Chief Complaint Admit Date LT HIP/PT HAS [...] sob January 26, 2025 3:00a m S/P [facility] 01/24 (PCU) January 31, 2025 1:42p m [...] 5:04pm sob February 18, 2025 8:49 pm urinary March 04, 2025 6:35p m CHF; ELEVATED TROPONINS March 07, 2025 7 :02am CHF; ELEVATED TROPONINS March 07, 2025 6 :04pm Amb Documentation March 09, 2025 8:25 am Additional Source Comments INFORMATION SOURCE (unrecogn ized section and content) DATE CREATED AUTHOR 02/25/2018 [facility] DATE CREATED AUTHOR AUTHOR'S ORGANIZ ATION 05/08/2022 [facility] DATE CREATED AUTHOR AUTHOR'S ORGANIZ ATION 03/18/2025 Jaquelin [facility] y [facility] Goals (unrecognized section and content) Goals may [...] or prosecute any alcohol or drug abuse patient.[facility] Hospital[facility] the event this information is protected by the Federal Confidentiality of Alcohol and Drug Abuse Patient Records regulations: The Federal rules restrict any use of the information to criminally investigate or prosecute any alcohol or drug abuse patient.[facility] HospitalIn the event this information is protected by the Federal Confidentiality of Alcohol and Drug Abuse Patient Records regulations: The Federal rules restrict any use of the information to criminally investigate or prosecute any alcohol or drug abuse patient.[facility] HospitalIn the event this information is protected by the Federal Confidentiality of Alcohol and Drug Abuse Patient Records regulations: The Federal rules restrict any use of the information to criminally investigate or prosecute any alcohol or drug abuse patient.[facility] HospitalIn the event this information is protected by the Federal Confidentiality of Alcohol and Drug Abuse Patient Records regulations: The Federal rules restrict any use of the information to criminally investigate or prosecute any alcohol or drug abuse patient.[facility] Care Teams (unrecognized sec tion and [...] End: January 15, 2025 Dr. Jeevan Yoder , Emergency Provider Active Start: January 15, 2025 [...] January 21, 2025 Dr. Sandeep Carlton DO Admit Provider Active Start: January 21, 2025 Dr. Sandeep Carlton , Other Provider Active Start: January 21, 2025 [...] Carlton , Other Provider Active Start: January 24, 2025 [...] January 26, 2025 End: January 26, 2025 Education Manager Relationship Specialty Start Date End Date Ramone Smiley MD PCP - General Family Practice 08/16/15 Education Manager Relationship Specialty Start Date End Date Ramone Smiley MD PCP - General Family Practice 08/16/15 Education Manager Relationship Specialty Start Date End Date Ramone Smiley MD PCP - General Family Practice 08/16/15 Education Manager Relationship Specialty Start Date End Date Ramone Smiley MD PCP - General Family Practice 08/16/15 Education Manager Relationship Specialty Start Date End Date Ramone [...] Dr. Nestor Bartlett , DO Admit Provider, Attending Provider Active Team [...] 2025 End: January 31, 2025 Whitney Cao PERSONNEL CLERKS SUPERVISOR, PERSONNEL CLERKS SUPERVISOR-C Attending Provider Active Start: January 31, 2025 [...] February 13, 2025 Dr. Lucio Borden , Attending Provider Active Start: February 13, 2025 Dr. Lucio Borden , DO Other Provider Active S tart: February 13, 2025 Team Status: Active Member Role Status Dates Dr. Ramone Smiley MD Primary Care Provider Active Start: February 15, 2025 Dr. Robert Allison DO Emergency Provider Active S tart: February 15, 2025 Dr. Nestor Bartlett , Admit Provider Active Start: February 15, 2025 [...] February 18, 2025 End: February 19, 2025 Team Status: Active Member Role/Relationship Status Dates Dr. Ramone Smiley MD Primary Care Provider Active Team Status: Active Member Role/Relationship Status Dates Dr. Ramone Smiley MD Primary Care Provider Active Start: November 21, 2024 Dr. Ramone Smiley MD Attending Provider Active St art: November 21, 2024 Dr. Ramone Smiley MD Referring Provider Active St art: November 21, 2024 Team Status: Inactive Member Role/Relationship Status Dates Dr. Ramone Smiley MD Primary Care Provider Active Start: January 07, 2025 End: January 07, 2025 Dr. Ethan Darnell DO Attending Provider Active Start : January 07, 2025 End: January 07, 2025 Dr. Ethan Darnell DO Emergency Provider Active Start : January 07, 2025 End: January 07, 2025 Team Status: Inactive Member Role/Relationship Status Dates Dr. Ramone Smiley MD Primary Care Provider Active Start: January 15, 2025 End: January 15, 2025 Dr. Jeevan Yoder DO Attending Provider Active Start: January 15, 2025 End: January 15, 2025 Dr. Jeevan oYder DO Emergency Provider Active Start: January 15, 2025 End: January 15, 2025 Team Status: Inactive Member Role/Relationship Status Dates Dr. Ramone Smiley MD Primary Care Provider Active Start: January 19, 2025 End: January 19, 2025 Dr. Ramone Smiley MD Attending Provider Active St art: January 19, 2025 End: January 19, 2025 Dr. Ramone Smiley MD Referring Provider Active St art: January 19, 2025 End: January 19, 2025 Team Status: Inactive Member Role/Relationship Status Dates Dr. Ramone Smiley MD Primary [...] January 24, 2025 Team Status: Active Member Role/Relationship Status Dates Dr. Ramone Smiley MD Primary Care Provider Active Start: January 20, 2025 Dr. Marcelina oSto MD Attending Provider Activ e Start: January 20, 2025 Team Status: Active Member Role/Relationship Status Dates Dr. Ramone Smiley MD Primary [...] January 21, 2025 Dr. Lucio Borden , Other Provider Active S tart: January 21, 2025 Dr. Marcelina Soto MD Other Provider Active Start: January 21, 2025 Team Status: Active Member Role/Relationship Status Dates Dr. Ramone Smiley MD Primary [...] January 22, 2025 Team Status: Active Member Role/Relationship Status Dates Dr. Ramone Smiley MD Primary [...] January 23, 2025 Team Status: Active Member Role/Relationship Status Dates Dr. Ramone Smiley MD Primary Care Provider Active Start: January 23, 2025 Dr. Jeevan Yoder , DO Emergency Provider Active Start: January 23, 2025 Dr. Sandeep Carlton , DO Admit Provider Active Start: January 23, 2025 Dr. Sandeep Carlton DO Other Provider Active Start: January 23, 2025 Dr. Melba Hartmann MD Other Provider Active St art: January 23, 2025 Dr. Lucio Borden , DO Other Provider Active S tart: January 23, 2025 Dr. Marcelina Soto MD Other Provider Active Start: January 23, 2025 Dr. Becca Silverman MD Attending Provider Active Start: January 23, 2025 Team Status: Active Member Role/Relationship Status Dates Dr. Ramone Smiley MD Primary [...] January 24, 2025 Team Status: Inactive Member Role/Relationship Status Dates Dr. Ramone Smiley MD Primary Care Provider Active Start: January 26, 2025 End: January 26, 2025 Dr. Jg Bryan DO Attending Provider Active Start: January 26, 2025 End: January 26, 2025 Dr. Jg Bryan DO Emergency Provider Active Start: January 26, 2025 End: January 26, 2025 Team Status: Inactive Member Role/Relationship Status Dates Dr. Ramone Smiley MD Primary Care Provider Active Start: January 31, 2025 End: January 31, 2025 Dr. Ramone Smiley MD Referring Provider Active St art: January 31, 2025 End: January 31, 2025 Whitney Cao NP, [employer] SUPERVISOR-C Attending Provider Active Start: January 31, 2025 End: January 31, 2025 Team Status: Inactive Member Role/Relationship Status Dates Dr. Ramone Smiley MD Primary [...] February 06, 2025 Team Status: Active Member Role/Relationship Status Dates Dr. Ramone Smiley MD Primary [...] February 04, 2025 Team Status: Active Member Role/Relationship Status Dates Dr. Ramone Smiley MD Primary [...] February 05, 2025 Team Status: Active Member Role/Relationship Status Dates Dr. Ramone Smiley MD Primary Care Provider Active Start: February 06, 2025 Dr. Aj Holley MD Emergency Provider Active Start: February 06, 2025 Dr. Lucio Borden DO Admit Provider Active S tart: February 06, 2025 Dr. Lucio Borden DO Attending Provider Active Start: February 06, 2025 Dr. Lucio Borden DO Other Provider Active S tart: February 06, 2025 Team Status: Inactive Member Role/Relationship Status Dates Dr. Ramone Smiley MD Primary Care Provider Active Start: February 07, 2025 End: February 07, 2025 Dr. Ramone Smiley MD Attending Provider Active St art: February 07, 2025 End: February 07, 2025 Dr. Ramone Smiley MD Referring Provider Active St art: February 07, 2025 End: February 07, 2025 Team Status: Inactive Member Role/Relationship Status Dates Dr. Ramone Smiley MD Primary [...] February 13, 2025 Team Status: Active Member Role/Relationship Status Dates Dr. Ramone Smiley MD Primary Care Provider Active Start: February 09, 2025 Dr. Jeremiah Corrales MD Emergency Provider Active S tart: February 09, 2025 Dr. Lucio Borden DO Attending Provider Active Start: February 09, 2025 Team Status: Active Member Role/Relationship Status Dates Dr. Ramone Smiley MD Primary Care Provider Active Start: February 10, 2025 Dr. Jeremiah Corrales MD Emergency Provider Active S tart: February 10, 2025 Dr. Lucio Bodren DO Admit Provider Active S tart: February 10, 2025 Dr. Lucio Borden DO Attending Provider Active Start: February 10, 2025 Dr. Lucio Borden DO Other Provider Active S tart: February 10, 2025 Team Status: Active Member Role/Relationship Status Dates Dr. Ramone Smilye MD Primary Care Provider Active Start: February 11, 2025 Dr. Jeremiah Corrales MD Emergency Provider Active S tart: February 11, 2025 Dr. Lucio Borden DO Admit Provider Active S tart: February 11, 2025 Dr. Lucio Borden DO Attending Provider Active Start: February 11, 2025 Dr. Lucio Borden DO Other Provider Active S tart: February 11, 2025 Team Status: Active Member Role/Relationship Status Dates Dr. Ramone Smiley MD Primary Care Provider Active Start: February 12, 2025 Dr. Jeremiah Corrales MD Emergency Provider Active S tart: February 12, 2025 Dr. Lucio Borden DO Admit Provider Active S tart: February 12, 2025 Dr. Lucio Borden DO Attending Provider Active Start: February 12, 2025 Dr. Lucio Borden DO Other Provider Active S tart: February 12, 2025 Team Status: Active Member Role/Relationship Status Dates Dr. Ramone Smiley MD Primary Care Provider Active Start: February 13, 2025 Dr. Jeremiah Corrales MD Emergency Provider Active S tart: February 13, 2025 Dr. Lucio Borden DO Admit Provider Active S tart: February 13, 2025 Dr. Lucio Borden DO Attending Provider Active Start: February 13, 2025 Dr. Lucio Borden DO Other Provider Active S tart: February 13, 2025 Team Status: Inactive Member Role/Relationship Status Dates Dr. Ramone Smiley MD Primary [...] February 17, 2025 Team Status: Active Member Role/Relationship Status Dates Dr. Ramone Smiley MD Primary [...] February 16, 2025 Team Status: Active Member Role/Relationship Status Dates Dr. Ramone Smiley MD Primary [...] February 17, 2025 Team Status: Inactive Member Role/Relationship Status Dates Dr. Ramone Smiley MD Primary Care Provider Active Start: February 18, 2025 End: February 19, 2025 Billy Kothari MD Attending Provider Active Star t: February 18, 2025 End: February 19, 2025 Billy Kothari MD Emergency Provider Active Star t: February 18, 2025 End: February 19, 2025 Team Status: Inactive Member Role/Relationship Status Dates Dr. Ramone Smiley MD Primary Care Provider Active Start: March 04, 2025 End: March 04, 2025 Dr. Jeevan Yoder DO Emergency Provider Active Start: March 04, 2025 End: March 04, 2025 Team Status: Active Member Role/Relationship Status Dates Dr. Ramone Smiley MD Primary Care Provider Active Start: March 07, 2025 Whitney Cao P[employer] SUPERVISOR, P[employer] SUPERVISOR-C Attending Provider Active Start: March 07, 2025 Whitney Cao P[employer]ER[employer] SUPERVISOR, P[employer] SUPERVISOR-C Referring Provider Active Start: March 07, 2025 Team Status: Inactive Member Role/Relationship Status Dates Dr. Ramone Smiley MD Primary Care Provider Active Start: March 04, 2025 End: March 04, 2025 Dr. Jeevan Yoder DO Attending Provider Active Start: March 04, 2025 End: March 04, 2025 Dr. Jeevan Yoder DO Emergency Provider Active Start: March 04, 2025 End: March 04, 2025 Team Status: Inactive Member Role/Relationship Status Dates Dr. Ramone Smiley MD Primary Care Provider Active Start: March 07, 2025 End: March 07, 2025 Whitney Cao PERSON[employer]ER[employer] SUPERVISOR, PERSON[employer]ER[employer] SUPERVISOR-C Attending Provider Active Start: March 07, 2025 End: March 07, 2025 Whitney Cao PERSONNEL [employer]ERKS SUPERVISOR, PERSON[employer]EL [employer]ER[employer] SUPERVISOR-C Referring Provider Active Start: March 07, 2025 End: March 07, 2025 Team Status: Active Member Role/Relationship Status Dates Dr. Ramone Smiley MD Primary Care Provider Active Start: March 07, 2025 Whitney Cao PERSONNEL [employer]ER[employer] SUPERVISOR, PERSON[employer]EL [employer]ERKS SUPERVISOR-C Referring Provider Active Start: March 07, 2025 Whitney Cao PERSONNEL [employer]ERKS SUPERVISOR, PERSONNEL [employer]ER[employer] SUPERVISOR-C Other Provider Active Sta rt: March 07, 2025 Dr. Se Good MD Attending Provider Active S tart: March 07, 2025 Team Status: Active Member Role/Relationship Status Dates Dr. Ramone Smiley MD Primary Care Provider Active Start: March 09, 2025 Whitney Cao PERSON[employer]EL [employer]ERKS SUPERVISOR, PERSONNEL [employer]ERKS SUPERVISOR-C Attending Provider Active Start: March 09, 2025 Reason for Visit (unrecogniz ed section [...] BE BASED ON THE PRIMARY CLINICAL RECORDS. [facility]. provides no warranty or guarantee of the accuracy or completeness of information in this document.
[2025-03-22] VITALS (11 sets, daily range): BP systolic 100–125; BP diastolic 41–62; PULSE 80–98; RESP 16–24; TEMP 36.4–37; O2SAT 95–100; BMI 27.3; BMI 27.4
--- OUTSIDE RECORDS SUMMARY | 2025-03-22 00:24 | XMS RPT_ITS | CCD ---
Author Organization [facility] [employer] Care Team Providers Care Regulation Supervisor Name Role Phone Zuleika Heaton Unavailable Unavailable LEE ALAMO Unavailable Unavailable PROVIDER, UNKNOWN Unavailable Unavailable Zuleika Heaton Unavailable Unavailable Dr. Ramone Smiley Primary Care Provider Dr. Ramone Smiley Referring Provider Dr. Michael Carmen Attending Provider Juan Carlos BARREL ENDSHAKER ADJUSTER, BARREL ENDSHAKER ADJUSTER-C Ara Attending Provider Dr. Angela Moncada Attending Provider Baljit LEARY, Ramone Noe Primary Care Provider [phone] Dr. Ramone Smiley Primary Care Provider [phone] Ramone Smiley Referring Provider DAVY Blackmon Attending Provider Ramone Smiley MD Primary Care Provider [phone] Dr. Ramone Smiley Primary Care Provider Dr. Ramone Smiley Referring Provider DAVY Peck Attending Provider [phone] Dr. Robert Allison Emergency Provider Dr. Heydi Amaya Admit Provider Dr. Heydi Amaya Other Provider Dr. Nestor Bartlett Attending Provider Dr. Nestor Bartlett Other Provider Dr. Ramone Veras Other Provider Dr. Sandeep Denson Attending Provider Unavailable Dr. Sandeep Denson Other Provider Unavailable Dr. Ramone Smiley Primary Care Provider Dr. Queta Cortez Emergency Provider [phone] Nestor Bartlett Admit Provider Dr. Nestor [...] Irvin RAYMUNDO, Dr. Gregorio Attending Provider Nash BARREL ENDSHAKER ADJUSTER-Whitney Cabral Attending Provider Leydi LEARY, Dr. Rocha [...] Unavailable Smiley, Ramone Primary Care Unavailable Nash BARREL ENDSHAKER ADJUSTER, Whitney Attending Unavailable Nash BARREL ENDSHAKER ADJUSTER, Whitney Referring Unavailable Lucio Borden Admitting Unavailable [...] Care Unavailable Smiley, Ramone Referring Unavailable Nash BARREL ENDSHAKER ADJUSTER, Whitney Attending Unavailable You PA, Jason Referring [...] Byrd Referring Unavailable Lucio Borden Attending Unavailable Smliey, Ramone Primary Care Unavailable Lucio Borden Consulting [...] TAPE] allergy to substance 5 NEEDS FOLLOW-UP [facility] Work Phone: Comment on above: CLOTH TAPE (20 sources) amoxicillin; Translations: [amoxicillin] drug allergy 5 yeast infection [facility] Work Phone: (2 sources) cephalexin drug allergy 5 [facility] Work Phone: [phone] (2 sources) clopidogrel drug allergy 5 [facility] Work Phone: (20 sources) Cephalexin; Translations: [cephalexin monohydrate] Drug Allergy 2 [facility] (20 sources) clopidogrel; Translations: [clopidogrel bisulfate] Drug Allergy 1 H[facility] Work Phone: (2 sources) cloth tap Allergy to substance 2 Other [facility] Work Phone: (5 sources) Cephalexin Drug Allergy 5 [facility] Work Phone: (5 sources) tape [Other] Propensity to adverse reactions 5 [facility] Medications Current Medications Medication Drug Class(es) Dates [...] 19, 2018 1:00am October 26, 2018 1:09am [id number] 200 actuat albuter ol 0.09 mg/actuat metered [...] AERS As needed - 90mcg/inh ALBUTEROL SULFATE [id number] Se Good MD Start: 08-29-2015 VENTOLIN HFA 1 08 (90 Base) MCG/ACT AERS As needed - 90mcg/inh ALBUTEROL SULFATE [id number] Se Good MD Start: 12-25-2014 End: 01-12-2018 [...] TABS One tablet by mouth daily ASPIRIN [id number] Kadie Álvarez RN Start: 08-23-2015 take 1 tablet by martin th once daily ASPIRIN 81 MG TABS One tablet by mouth daily ASPIRIN 96408263595 Kadie Álvarez RN take 1 tablet by [...] in each nostril twice daily AZELASTINE HCL [id number] Kadie Álvarez RN Start: 08-23-2015 take 1-2 spray(s) na deepali route twice daily ASTEPRO 0.15 % SOLN 1-2 sprays in each nostril twice daily AZELASTINE HCL 32687884648 Kadie Álvarez RN take 1-2 spray(s) na [...] MCG/ACT AERO 2 puffs daily BUDESONIDE-FORMOTEROL FUMARATE [id number] Kadie Álvarez RN Start: 08-23-2015 SYMBICORT 160- 4.5 MCG/ACT AERO 2 puffs daily BUDESONIDE-FORMOTEROL FUMARATE 99494371833 Kadie Álvarez RN take 1 puff(s) by in halation twice daily budesonide-formoterol (SYMBICORT) 160-4.5 mcg/actuation inhaler Indications: Other iron deficiency anemia Inhale 1 Puff as instructed twice daily. 0 Active Comment on above: Inhale 1 Puff as ins tructed twice daily. Fqfevcwkcm-Diwmenqj-Cvololco ol (17 sources) Corticosteroid, beta2-Adrenergic Agonist Start: [...] Start: 12-06-2021 take 1 capsule by mo [facility] once daily Cod Liver Oil Active 1 CAP PO DAILY December 05, 2021 11:00pm Start: 12-06-2021 take 1 capsule by mo [facility] once daily Cod Liver Oil Active 1 [...] Start: 01-07-2025 take 1 capsule by mo [facility] every twenty-four hours Diltiazem Hcl 180 mg capsule,ext.rel 24h degradable Active mg PO January 07, 2025 12:00am Start: 08-16-2018 End: 01-07-2025 Start: 08-29-2015 [facility] DILT-XR 180 MG [id number]-SOH One tablet by mouth daily DILTIAZEM HCL 37184355052 Se Good MD Start: 08-29-2015 take 1 tablet by martin th once daily DILT-XR 180 MG [id number]-TAZ One tablet by mouth daily DILTIAZEM HCL 50336022723 Se Good MD Comment on above: Take [...] Start: 08-13-2023 take 1 capsule by mo [facility] at bedtime Gabapentin 100 mg capsule Active [...] POWD 3 times daily with water PSYLLIUM [id number] Kadie Álvarez RN Roflumilast (20 sources) Phosphodiesterase [...] EVERY WEEK January 15, 2025 12:00am Vitamin H-Suclkobfktil-Qumr ral (15 sources) Start: 12-02-2019 take 250 mg by mouth once daily Vitamin J-Kmfvvbctijve-Ndq eral Active 250 MG PO DAILY December 02, 2019 11:46am Start: 12-02-2019 End: 07-18-2023 take 250 mg by mouth once daily Vitamin H-Feekmogozvjy-Numupxt Discontinued 250 MG PO DAILY December 02, 2019 12:00am July 19, 2023 12:34am Start: 12-02-2019 End: 07-18-2023 take 250 mg by mouth once daily Vitamin G-Ngqqdpvzuizm-Fxpaxwu Discontinued 250 MG PO DAILY December 01, 2019 11:00pm July 18, 2023 11:34pm Start: 12-02-2019 take 250 mg by mouth once daily Vitamin L-Jlvltygizsit-Jwchhap Active 25 0 MG PO DAILY December 01, 2019 11:00pm Start: 12-02-2019 take 250 mg by mouth once daily Vitamin N-Jyadcusbjhuv-Fggbmte Active 25 0 MG PO DAILY December [...] One tablet by mouth daily AMLODIPINE BESYLATE 68771231972 Se Good MD apixaban 5 mg oral [...] lower legs 1-2 times daily BETAMETHASONE DIPROPIONATE 43917044302 Kadie Álvarez RN Start: 08-23-2015 BETAMETHASONE DIPROPIONATE 0.05 % LOTN apply to lower legs 1-2 times daily BETAMETHASONE DIPROPIONATE 67313661706 Kadie Álvarez RN bisacodyl 10 mg rectal suppo sitory (20 sources) Stimulant Laxative Start: 12-30-2023 End: 01-15-2024 Start: 08-23-2015 take 1 tablet by martin once daily as needed BISACODYL EC 5 MG TBEC One tablet by mouth daily as needed BISACODYL 21308103052 Kadie Álvarez RN calcium carbonate (2 sources) Start: 08-23-2015 take 1 tablet by mouth once daily CALCIUM 600 600 MG TABS One tablet by mouth daily CALCIUM CARBONATE 28030228368 Kadie Álvarez RN Calcium Carbonate / vitamin [...] 4 MG TABS As needed CHLORPHENIRAMINE MALEATE 76993097304 Se Good MD cholecalciferol 0.025 mg oral [...] by mouth daily COD LIVER OIL CAPS [id number] Kadie Álvarez RN take 1 capsule by mouth once neftaly ly Cod Liver Oil cap Indications: Other iron deficiency anemia Take 1 capsule by mouth once daily. 0 Active Comment on above: Take 1 capsule by mo [facility] once daily. Cod Liver Oil capsule [...] 2:52pm docusate sodium 50 mg / sennosides, care home 8.6 mg oral tablet (20 sources) [...] units SQ daily at bedtime INSULIN DETEMIR [id number] Mariana Finley RN Start: 08-23-2015 inject 28 [IU] by avila bcutaneous injection once daily LEVEMIR 100 UNIT/ML SOLN 28 units SQ daily INSULIN DETEMIR 31503091595 Kadie Álvarez RN Start: 08-23-2015 take 15 [IU] by subc utaneous injection once daily at bedtime LEVEMIR 100 UNIT/ML SOLN 15 units SQ daily at bedtime INSULIN DETEMIR 64704955616 Mariana Finley RN Start: 08-23-2015 take 28 [IU] by subc utaneous injection once daily LEVEMIR 100 UNIT/ML SOLN 28 units SQ daily INSULIN DETEMIR 95671898633 Kadie Álvarez RN inject 52 [IU] by [...] CAPS One tablet by mouth daily LINACLOTIDE 66225195539 Kadie Álvarez RN Start: 08-23-2015 take 1 tablet by martin th once daily LINZESS 290 MCG CAPS One tablet by mouth daily LINACLOTIDE 83622748837 Kadie Álvarez RN lisinopril 40 mg oral [...] One tablet by mouth daily MAGNESIUM CAPS 12455197147 Kadie Álvarez RN metFORMIN hydrochloride 1000 mg oral tablet (2 sources) Biguanide take 1 tablet by mouth twice daily GLUCOPHAGE 1000 MG TABS One tablet by mouth twice daily METFORMIN HCL 06660245662 Julita Chau BARREL ENDSHAKER ADJUSTER metFORMIN hydrochloride 1000 mg / SITagliptin 50 mg oral tablet (4 sources) Biguanide, Dipeptidyl Peptidase 4 Inhibitor Start: 5 End: 5 take 1 tablet by mouth twice daily JANUMET 50-1000 MG TABS One tablet by mouth twice daily SITAGLIPTIN-METFORMI N HCL 51873490364 Se Good MD Start: 08-23-2015 End: 08-29-2015 take 1 tablet by mouth twice daily JANUMET 50-1000 MG TABS One tablet by mouth twice daily SITAGLIPTIN-METFORMIN HCL 67322069686 Se Good MD Start: 08-23-2015 take 1 tablet by martin th twice daily JANUMET 50-1000 MG TABS One tablet by mouth twice daily SITAGLIPTIN-METFORMIN HCL 53189189181 Kadie Álvarez RN miSOPROStol 0.2 mg oral [...] 12:18pm Start: 12-12-2019 take 2 tablets by [facility] twice daily potassium chloride 20 mEq TbER [...] three times daily as needed PROMETHAZINE HCL 80670986718 Kadie Álvarez RN PSYLLIUM RICO WIGGINS, MISC [...] One tablet by mouth daily RANITIDINE HCL 50644784468 Kadie Álvarez RN Comment on above: Take 300 mg by mouth once daily. sennosides, care home 8.6 mg oral tablet (5 sources) take 1 tablet by mouth twice daily senna (SENNA LAXATIVE) 8.6 mg tab Take 8.6 mg by mouth twice daily. 0 Active Comment on above: Take 8.6 mg by mouth twice daily. sodium chloride 0.111 meq/ml nasal spray (5 sources) sodium chloride (SALINE MIST) 0.65 % nasal spray Use 1 [place] in the nose as needed. 0 Active Comment on above: Use 1 [place] in the n ose as needed. sucralfate [...] End: 10-18-2020 Start: 01-24-2020 End: 10-18-2020 Tiotropium [place] (Spiriva With Handihaler) 18 mcg capsule, w/inhalation device Discontinued 1 NMA INHALATION NEEDED as needed for Sob &/Or Wheezing January 24, 2020 12:00am October 18, 2020 9:28am puncture 1 cap using device; one dose = 2 inhalations Start: 01-24-2020 End: 10-18-2020 Tiotropium [place] (Spiriva With Handihaler) 18 mcg capsule, w/inhalation device Discontinued 1 PUFF INHALATION NEEDED January 24, 2020 12:00am October 18, 2020 9:28am puncture 1 cap using device; one dose = 2 inhalations Start: 08-23-2015 SPIRIVA HANDIH ALER 18 MCG CAPS as needed TIOTROPIUM BROMIDE MONOHYDRATE 90345629879 Kadie Álvarez RN Start: 08-23-2015 SPIRIVA HANDIH ALER 18 MCG CAPS as needed TIOTROPIUM BROMIDE MONOHYDRATE 49024299143 Kadie Álvarez RN Start: 12-25-2014 End: 01-12-2018 [...] sources) Corticosteroid Start: 01-07-2025 End: 01-15-2025 Vitamin O-Tvrylxorhovd-Mbnbylq 500 MG tablet,chewable (2 sources) Start: 12-02-2019 End: 07-18-2023 Vitamin U-Aqpjkfiogomr-Xsbseoy 500 MG tablet,chewable Discontinued 250 mg PO [...] Coronary arteriosclerosis; Translations: [Atherosclerotic heart disease of [place] coronary artery without angina pectoris] Onset: 5 [...] Respiratory failure; insufficiency; arrest (adult) (20 sources) Qfaes-sc-yjxvfnn respiratory failure; Translations: [Acute respiratory failure with [...] sites No growth in 5 days. Normal [facility] Comment on above: Performed By: #### L 100.0100, L503.6005, L500.4050, L300.3900, L300.4310, M200.1000 ####[facility] [address] [place], [place], [id number] Cardiovascular stress test r eportOrdered By: Se Good on 03-07-2025 Study report [facility] Work Phone: Stress Reporton 03-07-2025 Stress Report Normal [facility] Urine Cultureon 03-06-2025 URC Normal [facility] Comment on above: Performed By: #### L 400.0001, M100.2200 ####[facility] [address] [place], [place], [id number] 12 Lead EKGon 03-04-2025 12 Lead EKG Normal [facility] Abdomen/Pelvis W IV Cont ONL Yon 03-04-2025 Abdomen/Pelvis W IV Cont ONLY Normal [facility] Absolute lymphocyte countOrd ered By: Jeevan Yoder on 03-04-2025 Lymphocytes Auto (Unsp spec) [#/Vol] 1.75 10*3/uL 0.83-4.51 [facility] Activated partial thrombopla stin time (aPTT) in platelet poor plasma by coagulation aOrdered By: Jeevan Yoder on 03-04-2025 aPTT Coag (PPP) [Time] 25.2 s 24.1-36.2 [facility] Amorphous sediment detection in urine sediment by light microscopyOrdered By: Jeevan Yoder on 03-04-2025 Amorphous sediment LM Ql (Urine sed) 3+ [facility] Anion gap in Serum or Plasma Ordered By: Jeevan Yoder on 03-04-2025 Anion gap [Moles/Vol] 11 mmol/L 5-15 [facility] Automated lymphocyte count a s percentage of total leukocytesOrdered By: Jeevan Yoder on 03-04-2025 Lymphocytes/100 WBC Auto (Unsp spec) 24.2 % 19-41 [facility] BUN/creatinine ratioOrdered By: Jeevan Yoder on 03-04-2025 Urea nitrogen/Creatinine [Mass ratio] 18.1 mg/mg 10-20 [facility] Basophil percentageOrdered B y: Jeevan Yoder on 03-04-2025 Basophils/100 WBC (Bld) 0.4 % 0-1 [facility] Bilirubin Test strip Ql (U)O rdered By: Jeevan Yoder on 03-04-2025 Bilirubin Ql (U) Negative Negative [facility] Bilirubin, totalOrdered By: Jeevan Yoder on 03-04-2025 Bilirubin [Mass/Vol] 0.25 mg/dL 0.00-1.30 [facility] Blood cultureOrdered By: Maeve Yoder on 03-04-2025 Bacteria identified Cx Nom (Bld) No growth in 5 days. [facility] Bacteria identified Cx Nom (Bld) No growth in 5 days. [facility] CBC W/Diff, Automatedon 07-0 Absolute Lymph 1.75 X10 3/uL Normal 0.83-4.51 [facility] Comment on above: Performed By: #### L 100.0100, L503.6005, L500.4050, L300.3900, L300.4310, M200.1000 ####[facility] [address] [place], [place], [id number] Absolute Neut 4.8 X10 3/uL Normal 2.0-7.7 [facility] Comment on above: Performed By: #### L 100.0100, L503.6005, L500.4050, L300.3900, L300.4310, M200.1000 ####[facility] [address] [place], [address] Basophils/100 WBC (Bld) 0.4 % Normal 0-1 [facility] Comment on above: Performed By: #### L 100.0100, L503.6005, L500.4050, L300.3900, L300.4310, M200.1000 ####[facility] [address] [place], [address] Eosinophils/100 WBC (Bld) 1.7 % Normal 0-5 [facility] Comment on above: Performed By: #### L 100.0100, L503.6005, L500.4050, L300.3900, L300.4310, M200.1000 ####[facility] [address] [place], [address] Erythrocyte distribution width (RBC) [Ratio] 16.2 % High 11.6-14.6 [facility] Comment on above: Performed By: #### L 100.0100, L503.6005, L500.4050, L300.3900, L300.4310, M200.1000 ####[facility] [address] [place], [address] Hematocrit (Bld) [Volume fraction] 33.5 % Low 37-47 [facility] Comment on above: Performed By: #### L 100.0100, L503.6005, L500.4050, L300.3900, L300.4310, M200.1000 ####[facility] [address] [place], [address] Hemoglobin (Bld) [Mass/Vol] 10.1 g/dL Low 12.0-15.0 [facility] Comment on above: Performed By: #### L 100.0100, L503.6005, L500.4050, L300.3900, L300.4310, M200.1000 ####[facility] [address] [place], [address] IG% 0.700 Normal 0.0-0.9 [facility] Comment on above: Result Comment: IG% - Immature Granulocytes (promyelocytes, myelocytes andmetamyelocytes) > 1% indicates that a LEFT SHIFT is Present. Performed By: #### L 100.0100, L503.6005, L500.4050, L300.3900, L300.4310, M200.1000 ####[facility] [address] [place], [address] Lymphocytes/100 WBC (Bld) 24.2 % Normal 19-41 [facility] Comment on above: Performed By: #### L 100.0100, L503.6005, L500.4050, L300.3900, L300.4310, M200.1000 ####[facility] [address] [place], [address] MCH (RBC) [Entitic mass] 27.2 pg Normal 27.0-32.0 [facility] Comment on above: Performed By: #### L 100.0100, L503.6005, L500.4050, L300.3900, L300.4310, M200.1000 ####[facility] [address] [place], [address] MCHC (RBC) [Mass/Vol] 30.1 g/dL Low 32-36 [facility] Comment on above: Performed By: #### L 100.0100, L503.6005, L500.4050, L300.3900, L300.4310, M200.1000 ####[facility] [address] [place], [address] MCV (RBC) [Entitic vol] 90.3 fL Normal 81-99 [facility] Comment on above: Performed By: #### L 100.0100, L503.6005, L500.4050, L300.3900, L300.4310, M200.1000 ####[facility] [address] [place], [address] Monocytes/100 WBC (Bld) 6.9 % Normal 0-10 [facility] Comment on above: Performed By: #### L 100.0100, L503.6005, L500.4050, L300.3900, L300.4310, M200.1000 ####[facility] [address] [place], [address] Neutrophils/100 WBC (Bld) 66.1 % Normal 47-70 [facility] Comment on above: Performed By: #### L 100.0100, L503.6005, L500.4050, L300.3900, L300.4310, M200.1000 ####[facility] [address] [place], [address] Nucleated RBC (Bld) [#/Vol] 0 10*3/uL Normal 0-5 [facility] Comment on above: Performed By: #### L 100.0100, L503.6005, L500.4050, L300.3900, L300.4310, M200.1000 ####[facility] [address] [place], [address] Platelet mean volume (Bld) [Entitic vol] 10.6 fL Normal 6.2-12.0 [facility] Comment on above: Performed By: #### L 100.0100, L503.6005, L500.4050, L300.3900, L300.4310, M200.1000 ####[facility] [address] [place], [address] Platelets (Bld) [#/Vol] 334 10*3/uL Normal 150-450 [facility] Comment on above: Performed By: #### L 100.0100, L503.6005, L500.4050, L300.3900, L300.4310, M200.1000 ####[facility] [address] [place], [address] RBC (Bld) [#/Vol] 3.71 10*6/uL Low 4.2-5.4 [facility] Comment on above: Performed By: #### L 100.0100, L503.6005, L500.4050, L300.3900, L300.4310, M200.1000 ####[facility] [address] [place], [address] RDW SD 52.9 fl High 35.1-43.9 [facility] Comment on above: Performed By: #### L 100.0100, L503.6005, L500.4050, L300.3900, L300.4310, M200.1000 ####[facility] [address] [place], [address] WBC (Bld) [#/Vol] 7.2 10*3/uL Normal 4.4-11.0 [facility] Comment on above: Performed By: #### L 100.0100, L503.6005, L500.4050, L300.3900, L300.4310, M200.1000 ####[facility] [address] [place], [address] Carbon dioxide, total [Moles /volume] in Central venous bloodOrdered By: Jeevan Yoder on 03-04-2025 CO2 [Moles/Vol] 29.0 mmol/L 21.0-32.0 [facility] Chloride assayOrdered By: Kenny Yoder on 03-04-2025 Chloride [Moles/Vol] 97 mmol/L Low 98-108 [facility] Comprehensive Metabolic Prof ilon 03-04-2025 Albumin [Mass/Vol] 3.3 g/dL Low 3.4-4.8 [facility] Comment on above: Performed By: #### L 100.0100, L503.6005, L500.4050, L300.3900, L300.4310, M200.1000 ####[facility] [address] [place], [address] Albumin/Globulin [Mass ratio] 0.9 {ratio} Normal 0.9-2.4 [facility] Comment on above: Performed By: #### L 100.0100, L503.6005, L500.4050, L300.3900, L300.4310, M200.1000 ####[facility] [address] [place], [address] ALK PHOS 79 U/L Normal 35-104 [facility] Comment on above: Performed By: #### L 100.0100, L503.6005, L500.4050, L300.3900, L300.4310, M200.1000 ####[facility] [address] [place], [address] ALT [Catalytic activity/Vol] 25 U/L Normal <=34 [facility] Comment on above: Performed By: #### L 100.0100, L503.6005, L500.4050, L300.3900, L300.4310, M200.1000 ####[facility] [address] [place], [address] AST [Catalytic activity/Vol] 26 U/L Normal <=31 [facility] Comment on above: Performed By: #### L 100.0100, L503.6005, L500.4050, L300.3900, L300.4310, M200.1000 ####[facility] [address] [place], [address] Bilirubin [Mass/Vol] 0.25 mg/dL Normal 0.00-1.30 [facility] Comment on above: Performed By: #### L 100.0100, L503.6005, L500.4050, L300.3900, L300.4310, M200.1000 ####[facility] [address] [place], [address] BUN/CRE 18.1 RATIO Normal 10-20 [facility] Comment on above: Performed By: #### L 100.0100, L503.6005, L500.4050, L300.3900, L300.4310, M200.1000 ####[facility] [address] [place], [address] Calcium [Mass/Vol] 10.7 mg/dL Normal 7.6-11.0 [facility] Comment on above: Performed By: #### L 100.0100, L503.6005, L500.4050, L300.3900, L300.4310, M200.1000 ####[facility] [address] [place], [address] Chloride [Moles/Vol] 97 mmol/L Low 98-108 [facility] Comment on above: Performed By: #### L 100.0100, L503.6005, L500.4050, L300.3900, L300.4310, M200.1000 ####[facility] [address] [place], [address] CO2 [Moles/Vol] 29.0 mmol/L Normal 21.0-32.0 [facility] Comment on above: Performed By: #### L 100.0100, L503.6005, L500.4050, L300.3900, L300.4310, M200.1000 ####[facility] [address] [place], [address] Creatinine [Mass/Vol] 1.29 mg/dL High 0.70-1.20 [facility] Comment on above: Performed By: #### L 100.0100, L503.6005, L500.4050, L300.3900, L300.4310, M200.1000 ####[facility] [address] [place], [address] ECRCL 32.46 ml/min Low 50-250 [facility] Comment on above: Performed By: #### L 100.0100, L503.6005, L500.4050, L300.3900, L300.4310, M200.1000 ####[facility] [address] [place], [address] GAP 11 Normal 5-15 [facility] Comment on above: Performed By: #### L 100.0100, L503.6005, L500.4050, L300.3900, L300.4310, M200.1000 ####[facility] [address] [place], [address] GFR/1.73 sq M.predicted among non-blacks MDRD (S/P/Bld) [Vol rate/Area] 42 mL/min/{1.73_m2} Low >60 [facility] Comment on above: Result Comment: mL/m in/1.73m2 CKD-EPI Creatinine Equation (2020) Performed By: #### L 100.0100, L503.6005, L500.4050, L300.3900, L300.4310, M200.1000 ####[facility] [address] [place], [address] Globulin (S) [Mass/Vol] 3.6 g/dL Normal 2.2-4.2 [facility] Comment on above: Performed By: #### L 100.0100, L503.6005, L500.4050, L300.3900, L300.4310, M200.1000 ####[facility] [address] [place], [address] Glucose [Mass/Vol] 116 mg/dL High 70-99 [facility] Comment on above: Performed By: #### L 100.0100, L503.6005, L500.4050, L300.3900, L300.4310, M200.1000 ####[facility] [address] [place], [address] Potassium [Moles/Vol] 5.0 mmol/L Normal 3.3-5.1 [facility] Comment on above: Performed By: #### L 100.0100, L503.6005, L500.4050, L300.3900, L300.4310, M200.1000 ####[facility] [address] [place], [address] Sodium [Moles/Vol] 136 mmol/L Normal 133-145 [facility] Comment on above: Performed By: #### L 100.0100, L503.6005, L500.4050, L300.3900, L300.4310, M200.1000 ####[facility] [address] [place], [address] T PROT 6.9 g/dL Normal 5.9-8.4 [facility] Comment on above: Performed By: #### L 100.0100, L503.6005, L500.4050, L300.3900, L300.4310, M200.1000 ####[facility] [address] [place], [address] Urea nitrogen [Mass/Vol] 23 mg/dL High 4-19 [facility] Comment on above: Performed By: #### L 100.0100, L503.6005, L500.4050, L300.3900, L300.4310, M200.1000 ####[facility] [address] [place], [address] Emergency Department Summary on 03-04-2025 Emergency Department Summary Normal [facility] Eosinophil percentageOrdered By: Jeevan Yoder on 03-04-2025 Eosinophils/100 WBC (Bld) 1.7 % 0-5 [facility] Erythrocyte distribution wid th ratioOrdered By: Jeevan Yoder on 03-04-2025 Erythrocyte distribution width (RBC) [Ratio] 16.2 % High 11.6-14.6 [facility] Erythrocyte distribution wid th standard deviationOrdered By: Jeevan Yoder on 03-04-2025 Erythrocyte distribution width (RBC) [Ratio] 52.9 fl High 35.1-43.9 [facility] Glomerular filtration rate ( GFR) estimation/1.73 sq m using serum, plasma, or whole bOrdered By: Jeevan Yoder on 03-04-2025 GFR/1.73 sq M.predicted among non-blacks MDRD (S/P/Bld) [Vol rate/Area] 42 mL/min/{1.73_m2} Low >60 [facility] Hematocrit Auto (Bld) [Volum e fraction]Ordered By: Jeevanrichar Yoder on 03-04-2025 Hematocrit (Bld) [Volume fraction] 33.5 % Low 37-47 [facility] Hemoglobin measurementOrdere d By: Jeevan Yoder on 03-04-2025 Hemoglobin (Bld) [Mass/Vol] 10.1 g/dL Low 12.0-15.0 [facility] Immature granulocytes/100 WB C Auto (Bld)Ordered By: Jeevan Yoder on 03-04-2025 Immature granulocytes/100 WBC (Bld) 0.700 % 0.0-0.9 [facility] Ketones Test strip Ql (U)Ord ered By: Jeevan Yoder on 03-04-2025 Ketones Ql (U) 5 mg/dl High Negative [facility] Lactic Acidon 03-04-2025 Lactate [Moles/Vol] 2.0 mmol/L Normal 0.0-2.0 [facility] Comment on above: Order Comment: Y Result Comment: Crit ical Result(s) Called at: 2056 by:??ARCHIE LOVE Results read back by same. Performed By: #### L 100.0100, L503.6005, L500.4050, L300.3900, L300.4310, M200.1000 ####[facility] [address] [place], [address] MCV (mean corpuscular volume ) determinationOrdered By: Jeevan Yoder on 03-04-2025 MCV (RBC) [Entitic vol] 90.3 fL 81-99 [facility] Mean corpuscular hemoglobin (MCH) determinationOrdered By: Jeevan Yoder on 03-04-2025 MCH (RBC) [Entitic mass] 27.2 pg 27.0-32.0 [facility] Monocyte percentageOrdered B y: Jeevan Yoder on 03-04-2025 Monocytes/100 WBC (Bld) 6.9 % 0-10 [facility] Mucus LM Ql (Urine sed)Order ed By: Jeevan Yoder on 03-04-2025 Mucus Ql (Urine sed) 0 SEEN /hpf [facility] Neutrophil percentageOrdered By: Jeevan Yoder on 03-04-2025 Neutrophils/100 WBC (Bld) 66.1 % 47-70 [facility] Nitrite Test strip Ql (U)Ord ered By: Jeevan Yoder on 03-04-2025 Nitrite Ql (U) Negative Negative [facility] No Panel InformationOrdered By: Jeevan Yoder on 03-04-2025 26 U/L <32 [facility] Partial Thromboplast Timeon 03-04-2025 aPTT Coag (Bld) [Time] 25.2 s Normal 24.1-36.2 [facility] Comment on above: Performed By: #### L 100.0100, L503.6005, L500.4050, L300.3900, L300.4310, M200.1000 ####[facility] [address] [place], [place], [address] Platelet countOrdered By: Kenny Yoder on 03-04-2025 Platelets (Bld) [#/Vol] 334 10*3/uL 150-450 [facility] Potassium measurement (mass/ volume)Ordered By: Jeevan Yoder on 03-04-2025 Potassium (Unsp spec) [Mass/Vol] 5.0 mmol/L 3.3-5.1 [facility] Protein Test strip Ql (U)Ord ered By: Jeevan Yoder on 03-04-2025 Protein Ql (U) 100 mg/dl High Negative [facility] Prothrombin Time w/INRon INR Coag (PPP) [Relative time] 1.0 {INR} Normal [facility] Comment on above: Performed By: #### L 100.0100, L503.6005, L500.4050, L300.3900, L300.4310, M200.1000 ####[facility] [address] [place], [place], [address] PT Coag (PPP) [Time] 13.8 s Normal 11.7-14.9 [facility] Comment on above: Performed By: #### L 100.0100, L503.6005, L500.4050, L300.3900, L300.4310, M200.1000 ####[facility] [address] [place], [place], [address] Prothrombin timeOrdered By: Jeevan Yoder on 03-04-2025 PT Coag (PPP) [Time] 13.8 s 11.7-14.9 [facility] RBC Auto (Bld) [#/Vol]Ordere d By: Jeevan Yoder on 03-04-2025 RBC (Bld) [#/Vol] 3.71 10*6/uL Low 4.2-5.4 [facility] Serum creatinine measurement (mass/volume)Ordered By: Jeevan Yoder on 03-04-2025 Creatinine [Mass/Vol] 1.29 mg/dL High 0.70-1.20 [facility] Serum globulin measurementOr dered By: Jeevan Yoder on 03-04-2025 Globulin (S) [Mass/Vol] 3.6 g/dL 2.2-4.2 [facility] Serum glucose measurement (m ass/volume)Ordered By: Jeevan Yoder on 03-04-2025 Glucose [Mass/Vol] 116 mg/dL High 70-99 [facility] Serum or plasma alanine kelley otransferase (ALT) measurementOrdered By: Jeevan Yoder on 03-04-2025 ALT [Catalytic activity/Vol] 25 U/L <35 [facility] Serum or plasma albumin melanie urement (mass/volume)Ordered By: Jeevan Yoder on 03-04-2025 Albumin [Mass/Vol] 3.3 g/dL Low 3.4-4.8 [facility] Serum or plasma albumin/glob ulin mass ratioOrdered By: Jeevan Yoder on 03-04-2025 Albumin/Globulin [Mass ratio] 0.9 {ratio} 0.9-2.4 [facility] Serum or plasma alkaline lissa sphatase measurementOrdered By: Jeevan Yoder on 03-04-2025 ALP [Catalytic activity/Vol] 79 U/L 35-104 [facility] Serum or plasma calcium melanie urement (mass/volume)Ordered By: Jeevan Yoder on 03-04-2025 Calcium [Mass/Vol] 10.7 mg/dL 7.6-11.0 [facility] Serum or plasma urea nitroge n measurement (mass/volume)Ordered By: Jeevan Yoder on 03-04-2025 Urea nitrogen [Mass/Vol] 23 mg/dL High 4-19 [facility] Sodium levelOrdered By: Marcelino Yoder on 03-04-2025 Sodium [Moles/Vol] 136 mmol/L 133-145 [facility] Squamous epithelial cells de tection in urine sediment by light microscopyOrdered By: Jeevan Yoder on 03-04-2025 Epithelial cells.squamous LM Ql (Urine sed) 0-5 SEEN /hpf 5-10 [facility] Total proteinOrdered By: Maeve Yoder on 03-04-2025 Protein [Mass/Vol] 6.9 g/dL 5.9-8.4 [facility] Urinalysis, Completeon 03-04 BACTERIA 4+ /hpf Normal None Seen [facility] Comment on above: Order Comment: MARSHALL CTOR TO SPECIFY Performed By: #### L 400.0001, M100.2200 ####[facility] [address] [place], [address] EPI,SQUAMOUS 0-5 SEEN Normal 5-10 [facility] Comment on above: Order Comment: MARSHALL CTOR TO SPECIFY Performed By: #### L 400.0001, M100.2200 ####[facility] [address] [place], [address] RBC 0-5 SEEN Normal 0-5 [facility] Comment on above: Order Comment: COLLE CTOR TO SPECIFY Performed By: #### L 400.0001, M100.2200 ####[facility] [address] [place], [address] YEAST 2+ /hpf Normal None Seen [facility] Comment on above: Order Comment: MARSHALL CTOR TO SPECIFY Performed By: #### L 400.0001, M100.2200 ####[facility] [address] [place], [address] AMORPHOUS 3+ Normal [facility] Comment on above: Order Comment: MARSHALL CTOR TO SPECIFY Performed By: #### L 400.0001, M100.2200 ####[facility] [address] [place], [address] WBC 25-50 SEEN Normal 0-5 [facility] Comment on above: Order Comment: MARSHALL CTOR TO SPECIFY Performed By: #### L 400.0001, M100.2200 ####[facility] [address] [place], [address] Mucus Ql (Urine sed) 0 SEEN Normal [facility] Comment on above: Order Comment: MARSHALL CTOR TO SPECIFY Performed By: #### L 400.0001, M100.2200 ####[facility] [address] [place], [address] Urine clarityOrdered By: Maeve Yoder on 03-04-2025 Clarity (U) Cloudy Clear [facility] Urine color determinationOrd ered By: Jeevan Yoder on 03-04-2025 Color (U) Straw Yellow [facility] Urine cultureOrdered By: Maeve Yoder on 03-04-2025 Bacteria identified Cx Nom (U) Enterococcus faecalis Abnormal [facility] Urine glucose detectionOrder ed By: Jeevan Yoder on 03-04-2025 Glucose Ql (U) 100 mg/dl High Normal [facility] Urine leukocyte esterase det ection by dipstickOrdered By: Jeevan Yoder on 03-04-2025 Leukocyte esterase Test strip Ql (U) 500 /ul High Negative [facility] Urine pHOrdered By: Jeevan rai on 03-04-2025 pH (U) 7.0 [pH] 5.0 - 8.0 [facility] Urine sediment bacteria coun t by microscopy (number/high power field)Ordered By: Jeevan Yoder on 03-04-2025 Bacteria LM.HPF (Urine sed) [#/Area] 4 /[HPF] None Seen [facility] Urine sediment yeast count b y microscopy (number/high powered field)Ordered By: Jeevan Yoder on 03-04-2025 Yeast LM.HPF (Urine sed) [#/Area] 2 /[HPF] None Seen [facility] Urine specific gravity measu rementOrdered By: Jeevan Yoder on 03-04-2025 Specific gravity (U) [Rel density] 1.010 1.002-1.030 [facility] Urine urobilinogen measureme ntOrdered By: Jeevan Yoder on 03-04-2025 Urobilinogen Ql (U) Normal mg/dl Normal [facility] White blood cell (WBC) count Ordered By: Jeevan Yoder on 03-04-2025 WBC (Bld) [#/Vol] 7.2 10*3/uL 4.4-11.0 [facility] White blood cell countOrdere d By: Jeevan Yoder on 03-04-2025 White blood cell count 25-50 SEEN /hpf 0-5 [facility] Basic Metabolic Profile (BMP )on 02-23-2025 BUN Normal 4-19 [facility] Comment on above: Result Comment: Canc elled via OM: Order cancelled - Patient discharged Performed By: #### L 500.2500, L100.0100 ####[facility] [address] [place], [address] BUN/CRE Normal 10-20 [facility] Comment on above: Result Comment: Canc elled via OM: Order cancelled - Patient discharged Performed By: #### L 500.2500, L100.0100 ####[facility] [address] [place], [address] Calcium Normal 7.6-11.0 [facility] Comment on above: Result Comment: Canc elled via OM: Order cancelled - Patient discharged Performed By: #### L 500.2500, L100.0100 ####[facility] [address] [place], [address] CL Normal 98-108 [facility] Comment on above: Result Comment: Canc elled via OM: Order cancelled - Patient discharged Performed By: #### L 500.2500, L100.0100 ####[facility] [address] [place], [address] CO2 Normal 21.0-32.0 [facility] Comment on above: Result Comment: Canc elled via OM: Order cancelled - Patient discharged Performed By: #### L 500.2500, L100.0100 ####[facility] [address] [place], [address] CREAT,SERUM Normal 0.70-1.20 [facility] Comment on above: Result Comment: Canc elled via OM: Order cancelled - Patient discharged Performed By: #### L 500.2500, L100.0100 ####[facility] [address] [place], [address] eGFR Normal >60 [facility] Comment on above: Result Comment: Canc elled via OM: Order cancelled - Patient discharged Performed By: #### L 500.2500, L100.0100 ####[facility] [address] [place], [address] GAP Normal 5-15 [facility] Comment on above: Result Comment: Canc elled via OM: Order cancelled - Patient discharged Performed By: #### L 500.2500, L100.0100 ####[facility] [address] [place], [address] GLU Normal 70-99 [facility] Comment on above: Result Comment: Canc elled via OM: Order cancelled - Patient discharged Performed By: #### L 500.2500, L100.0100 ####[facility] [address] [place], [address] Potassium Normal 3.3-5.1 [facility] Comment on above: Result Comment: Canc elled via OM: Order cancelled - Patient discharged Performed By: #### L 500.2500, L100.0100 ####[facility] [address] [place], [address] Basic Metabolic Profile (BMP) Normal 133-145 [facility] Comment on above: Result Comment: Canc elled via OM: Order cancelled - Patient discharged Performed By: #### L 500.2500, L100.0100 ####[facility] [address] [place], [address] CBC W/Diff, Automatedon 06-2 -2024 Absolute Neut Normal 2.0-7.7 [facility] Comment on above: Result Comment: Canc elled via OM: Order cancelled - Patient discharged Performed By: #### L 500.2500, L100.0100 ####[facility] [address] [place], [address] HCT Normal 37-47 [facility] Comment on above: Result Comment: Canc elled via OM: Order cancelled - Patient discharged Performed By: #### L 500.2500, L100.0100 ####[facility] [address] [place], [address] HGB Normal 12.0-15.0 [facility] Comment on above: Result Comment: Canc elled via OM: Order cancelled - Patient discharged Performed By: #### L 500.2500, L100.0100 ####[facility] [address] [place], [address] MCH Normal 27.0-32.0 [facility] Comment on above: Result Comment: Canc elled via OM: Order cancelled - Patient discharged Performed By: #### L 500.2500, L100.0100 ####[facility] [address] [place], [address] MCHC Normal 32-36 [facility] Comment on above: Result Comment: Canc elled via OM: Order cancelled - Patient discharged Performed By: #### L 500.2500, L100.0100 ####[facility] [address] [place], [address] MCV Normal 81-99 [facility] Comment on above: Result Comment: Canc elled via OM: Order cancelled - Patient discharged Performed By: #### L 500.2500, L100.0100 ####[facility] [address] [place], [address] NEUT% Normal 47-70 [facility] Comment on above: Result Comment: Canc elled via OM: Order cancelled - Patient discharged Performed By: #### L 500.2500, L100.0100 ####[facility] [address] [place], [address] PLT Normal 150-450 [facility] Comment on above: Result Comment: Canc elled via OM: Order cancelled - Patient discharged Performed By: #### L 500.2500, L100.0100 ####[facility] [address] [place], [address] RBC Normal 4.2-5.4 [facility] Comment on above: Result Comment: Canc elled via OM: Order cancelled - Patient discharged Performed By: #### L 500.2500, L100.0100 ####[facility] [address] [place], [address] RDW CV Normal 11.6-14.6 [facility] Comment on above: Result Comment: Canc elled via OM: Order cancelled - Patient discharged Performed By: #### L 500.2500, L100.0100 ####[facility] [address] [place], [address] RDW SD Normal 35.1-43.9 [facility] Comment on above: Result Comment: Canc elled via OM: Order cancelled - Patient discharged Performed By: #### L 500.2500, L100.0100 ####[facility] [address] [place], [address] WBC Normal 4.4-11.0 [facility] Comment on above: Result Comment: Canc elled via OM: Order cancelled - Patient discharged Performed By: #### L 500.2500, L100.0100 ####[facility] [address] [place], [address] Basic Metabolic Profile (BMP )on 02-22-2025 BUN Normal 4-19 [facility] Comment on above: Result Comment: Canc elled via OM: Order cancelled - Patient discharged Performed By: #### L 500.2500, L100.0100 ####[facility] [address] [place], [address] BUN/CRE Normal 10-20 [facility] Comment on above: Result Comment: Canc elled via OM: Order cancelled - Patient discharged Performed By: #### L 500.2500, L100.0100 ####[facility] [address] [place], [address] Calcium Normal 7.6-11.0 [facility] Comment on above: Result Comment: Canc elled via OM: Order cancelled - Patient discharged Performed By: #### L 500.2500, L100.0100 ####[facility] [address] [place], [address] CL Normal 98-108 [facility] Comment on above: Result Comment: Canc elled via OM: Order cancelled - Patient discharged Performed By: #### L 500.2500, L100.0100 ####[facility] [address] [place], [address] CO2 Normal 21.0-32.0 [facility] Comment on above: Result Comment: Canc elled via OM: Order cancelled - Patient discharged Performed By: #### L 500.2500, L100.0100 ####[facility] [address] [place], [address] CREAT,SERUM Normal 0.70-1.20 [facility] Comment on above: Result Comment: Canc elled via OM: Order cancelled - Patient discharged Performed By: #### L 500.2500, L100.0100 ####[facility] [address] [place], [address] eGFR Normal >60 [facility] Comment on above: Result Comment: Canc elled via OM: Order cancelled - Patient discharged Performed By: #### L 500.2500, L100.0100 ####[facility] [address] [place], [address] GAP Normal 5-15 [facility] Comment on above: Result Comment: Canc elled via OM: Order cancelled - Patient discharged Performed By: #### L 500.2500, L100.0100 ####[facility] [address] [place], [address] GLU Normal 70-99 [facility] Comment on above: Result Comment: Canc elled via OM: Order cancelled - Patient discharged Performed By: #### L 500.2500, L100.0100 ####[facility] [address] [place], [address] Potassium Normal 3.3-5.1 [facility] Comment on above: Result Comment: Canc elled via OM: Order cancelled - Patient discharged Performed By: #### L 500.2500, L100.0100 ####[facility] [address] [place], [address] Basic Metabolic Profile (BMP) Normal 133-145 [facility] Comment on above: Result Comment: Canc elled via OM: Order cancelled - Patient discharged Performed By: #### L 500.2500, L100.0100 ####[facility] [address] [place], [address] CBC W/Diff, Automatedon 06-2 -2024 Absolute Neut Normal 2.0-7.7 [facility] Comment on above: Result Comment: Canc elled via OM: Order cancelled - Patient discharged Performed By: #### L 500.2500, L100.0100 ####[facility] [address] [place], [address] HCT Normal 37-47 [facility] Comment on above: Result Comment: Canc elled via OM: Order cancelled - Patient discharged Performed By: #### L 500.2500, L100.0100 ####[facility] [address] [place], [address] HGB Normal 12.0-15.0 [facility] Comment on above: Result Comment: Canc elled via OM: Order cancelled - Patient discharged Performed By: #### L 500.2500, L100.0100 ####[facility] [address] [place], [address] MCH Normal 27.0-32.0 [facility] Comment on above: Result Comment: Canc elled via OM: Order cancelled - Patient discharged Performed By: #### L 500.2500, L100.0100 ####[facility] [address] [place], [address] MCHC Normal 32-36 [facility] Comment on above: Result Comment: Canc elled via OM: Order cancelled - Patient discharged Performed By: #### L 500.2500, L100.0100 ####[facility] [address] [place], [address] MCV Normal 81-99 [facility] Comment on above: Result Comment: Canc elled via OM: Order cancelled - Patient discharged Performed By: #### L 500.2500, L100.0100 ####[facility] [address] [place], [address] NEUT% Normal 47-70 [facility] Comment on above: Result Comment: Canc elled via OM: Order cancelled - Patient discharged Performed By: #### L 500.2500, L100.0100 ####[facility] [address] [place], [address] PLT Normal 150-450 [facility] Comment on above: Result Comment: Canc elled via OM: Order cancelled - Patient discharged Performed By: #### L 500.2500, L100.0100 ####[facility] [address] [place], [address] RBC Normal 4.2-5.4 [facility] Comment on above: Result Comment: Canc elled via OM: Order cancelled - Patient discharged Performed By: #### L 500.2500, L100.0100 ####[facility] [address] [place], [address] RDW CV Normal 11.6-14.6 [facility] Comment on above: Result Comment: Canc elled via OM: Order cancelled - Patient discharged Performed By: #### L 500.2500, L100.0100 ####[facility] [address] [place], [address] RDW SD Normal 35.1-43.9 [facility] Comment on above: Result Comment: Canc elled via OM: Order cancelled - Patient discharged Performed By: #### L 500.2500, L100.0100 ####[facility] [address] [place], [address] WBC Normal 4.4-11.0 [facility] Comment on above: Result Comment: Canc elled via OM: Order cancelled - Patient discharged Performed By: #### L 500.2500, L100.0100 ####[facility] [address] [place], [address] Basic Metabolic Profile (BMP )on 02-21-2025 BUN Normal 4-19 [facility] Comment on above: Result Comment: Canc elled via OM: Order cancelled - Patient discharged Performed By: #### L 500.2500, L100.0100 ####[facility] [address] [place], [address] BUN/CRE Normal 10-20 [facility] Comment on above: Result Comment: Canc elled via OM: Order cancelled - Patient discharged Performed By: #### L 500.2500, L100.0100 ####[facility] [address] [place], [address] Calcium Normal 7.6-11.0 [facility] Comment on above: Result Comment: Canc elled via OM: Order cancelled - Patient discharged Performed By: #### L 500.2500, L100.0100 ####[facility] [address] [place], [address] CL Normal 98-108 [facility] Comment on above: Result Comment: Canc elled via OM: Order cancelled - Patient discharged Performed By: #### L 500.2500, L100.0100 ####[facility] [address] [place], [address] CO2 Normal 21.0-32.0 [facility] Comment on above: Result Comment: Canc elled via OM: Order cancelled - Patient discharged Performed By: #### L 500.2500, L100.0100 ####[facility] [address] [place], [address] CREAT,SERUM Normal 0.70-1.20 [facility] Comment on above: Result Comment: Canc elled via OM: Order cancelled - Patient discharged Performed By: #### L 500.2500, L100.0100 ####[facility] [address] [place], [address] eGFR Normal >60 [facility] Comment on above: Result Comment: Canc elled via OM: Order cancelled - Patient discharged Performed By: #### L 500.2500, L100.0100 ####[facility] [address] [place], [address] GAP Normal 5-15 [facility] Comment on above: Result Comment: Canc elled via OM: Order cancelled - Patient discharged Performed By: #### L 500.2500, L100.0100 ####[facility] [address] [place], [address] GLU Normal 70-99 [facility] Comment on above: Result Comment: Canc elled via OM: Order cancelled - Patient discharged Performed By: #### L 500.2500, L100.0100 ####[facility] [address] [place], [address] Potassium Normal 3.3-5.1 [facility] Comment on above: Result Comment: Canc elled via OM: Order cancelled - Patient discharged Performed By: #### L 500.2500, L100.0100 ####[facility] [address] [place], [address] Basic Metabolic Profile (BMP) Normal 133-145 [facility] Comment on above: Result Comment: Canc elled via OM: Order cancelled - Patient discharged Performed By: #### L 500.2500, L100.0100 ####[facility] [address] [place], [address] CBC W/Diff, Automatedon - Absolute Neut Normal 2.0-7.7 [facility] Comment on above: Result Comment: Canc elled via OM: Order cancelled - Patient discharged Performed By: #### L 500.2500, L100.0100 ####[facility] [address] [place], [address] HCT Normal 37-47 [facility] Comment on above: Result Comment: Canc elled via OM: Order cancelled - Patient discharged Performed By: #### L 500.2500, L100.0100 ####[facility] [address] [place], [address] HGB Normal 12.0-15.0 [facility] Comment on above: Result Comment: Canc elled via OM: Order cancelled - Patient discharged Performed By: #### L 500.2500, L100.0100 ####[facility] [address] [place], [address] MCH Normal 27.0-32.0 [facility] Comment on above: Result Comment: Canc elled via OM: Order cancelled - Patient discharged Performed By: #### L 500.2500, L100.0100 ####[facility] [address] [place], [address] MCHC Normal 32-36 [facility] Comment on above: Result Comment: Canc elled via OM: Order cancelled - Patient discharged Performed By: #### L 500.2500, L100.0100 ####[facility] [address] [place], [address] MCV Normal 81-99 [facility] Comment on above: Result Comment: Canc elled via OM: Order cancelled - Patient discharged Performed By: #### L 500.2500, L100.0100 ####[facility] [address] [place], [address] NEUT% Normal 47-70 [facility] Comment on above: Result Comment: Canc elled via OM: Order cancelled - Patient discharged Performed By: #### L 500.2500, L100.0100 ####[facility] [address] [place], [address] PLT Normal 150-450 [facility] Comment on above: Result Comment: Canc elled via OM: Order cancelled - Patient discharged Performed By: #### L 500.2500, L100.0100 ####[facility] [address] [place], [address] RBC Normal 4.2-5.4 [facility] Comment on above: Result Comment: Canc elled via OM: Order cancelled - Patient discharged Performed By: #### L 500.2500, L100.0100 ####[facility] [address] [place], [address] RDW CV Normal 11.6-14.6 [facility] Comment on above: Result Comment: Canc elled via OM: Order cancelled - Patient discharged Performed By: #### L 500.2500, L100.0100 ####[facility] [address] [place], [address] RDW SD Normal 35.1-43.9 [facility] Comment on above: Result Comment: Canc elled via OM: Order cancelled - Patient discharged Performed By: #### L 500.2500, L100.0100 ####[facility] [address] [place], [address] WBC Normal 4.4-11.0 [facility] Comment on above: Result Comment: Canc elled via OM: Order cancelled - Patient discharged Performed By: #### L 500.2500, L100.0100 ####[facility] [address] [place], [address] Basic Metabolic Profile (BMP )on 02-20-2025 BUN Normal 4-19 [facility] Comment on above: Result Comment: Canc elled via OM: Order cancelled - Patient discharged Performed By: #### L 100.0100, L500.2500 ####[facility] [address] [place], [address] BUN/CRE Normal 10-20 [facility] Comment on above: Result Comment: Canc elled via OM: Order cancelled - Patient discharged Performed By: #### L 100.0100, L500.2500 ####[facility] [address] [place], [address] Calcium Normal 7.6-11.0 [facility] Comment on above: Result Comment: Canc elled via OM: Order cancelled - Patient discharged Performed By: #### L 100.0100, L500.2500 ####[facility] [address] [place], [address] CL Normal 98-108 [facility] Comment on above: Result Comment: Canc elled via OM: Order cancelled - Patient discharged Performed By: #### L 100.0100, L500.2500 ####[facility] [address] [place], [address] CO2 Normal 21.0-32.0 [facility] Comment on above: Result Comment: Canc elled via OM: Order cancelled - Patient discharged Performed By: #### L 100.0100, L500.2500 ####[facility] [address] [place], [address] CREAT,SERUM Normal 0.70-1.20 [facility] Comment on above: Result Comment: Canc elled via OM: Order cancelled - Patient discharged Performed By: #### L 100.0100, L500.2500 ####[facility] [address] [place], [address] eGFR Normal >60 [facility] Comment on above: Result Comment: Canc elled via OM: Order cancelled - Patient discharged Performed By: #### L 100.0100, L500.2500 ####[facility] [address] [place], [address] GAP Normal 5-15 [facility] Comment on above: Result Comment: Canc elled via OM: Order cancelled - Patient discharged Performed By: #### L 100.0100, L500.2500 ####[facility] [address] [place], [address] GLU Normal 70-99 [facility] Comment on above: Result Comment: Canc elled via OM: Order cancelled - Patient discharged Performed By: #### L 100.0100, L500.2500 ####[facility] [address] [place], [address] Potassium Normal 3.3-5.1 [facility] Comment on above: Result Comment: Canc elled via OM: Order cancelled - Patient discharged Performed By: #### L 100.0100, L500.2500 ####[facility] [address] [place], [address] Basic Metabolic Profile (BMP) Normal 133-145 [facility] Comment on above: Result Comment: Canc elled via OM: Order cancelled - Patient discharged Performed By: #### L 100.0100, L500.2500 ####[facility] [address] [place], [address] Bedside Glucoseon 02-20-2025 FINGERSTICK GLU 385 mg/dL High 74-106 [facility] Comment on above: Result Comment: KATARINA GEMENT OF PATIENT CARE PER NURSING PROTOCOL Performed By: #### L 501.080 ####[facility] [address] [place], [address] FINGERSTICK GLU 419 mg/dL High 74-106 [facility] Comment on above: Result Comment: KATARINA GEMENT OF PATIENT CARE PER NURSING PROTOCOL Performed By: #### L 501.080 ####[facility] [address] [place], [address] CBC W/Diff, Automatedon 06-2 Absolute Neut Normal 2.0-7.7 [facility] Comment on above: Result Comment: Canc elled via OM: Order cancelled - Patient discharged Performed By: #### L 100.0100, L500.2500 ####[facility] [address] [place], [address] HCT Normal 37-47 [facility] Comment on above: Result Comment: Canc elled via OM: Order cancelled - Patient discharged Performed By: #### L 100.0100, L500.2500 ####[facility] [address] [place], [address] HGB Normal 12.0-15.0 [facility] Comment on above: Result Comment: Canc elled via OM: Order cancelled - Patient discharged Performed By: #### L 100.0100, L500.2500 ####[facility] [address] [place], [address] MCH Normal 27.0-32.0 [facility] Comment on above: Result Comment: Canc elled via OM: Order cancelled - Patient discharged Performed By: #### L 100.0100, L500.2500 ####[facility] [address] [place], [address] MCHC Normal 32-36 [facility] Comment on above: Result Comment: Canc elled via OM: Order cancelled - Patient discharged Performed By: #### L 100.0100, L500.2500 ####[facility] [address] [place], [address] MCV Normal 81-99 [facility] Comment on above: Result Comment: Canc elled via OM: Order cancelled - Patient discharged Performed By: #### L 100.0100, L500.2500 ####[facility] [address] [place], [address] NEUT% Normal 47-70 [facility] Comment on above: Result Comment: Canc elled via OM: Order cancelled - Patient discharged Performed By: #### L 100.0100, L500.2500 ####[facility] [address] [place], [address] PLT Normal 150-450 [facility] Comment on above: Result Comment: Canc elled via OM: Order cancelled - Patient discharged Performed By: #### L 100.0100, L500.2500 ####[facility] [address] [place], [address] RBC Normal 4.2-5.4 [facility] Comment on above: Result Comment: Canc elled via OM: Order cancelled - Patient discharged Performed By: #### L 100.0100, L500.2500 ####[facility] [address] [place], [address] RDW CV Normal 11.6-14.6 [facility] Comment on above: Result Comment: Canc elled via OM: Order cancelled - Patient discharged Performed By: #### L 100.0100, L500.2500 ####[facility] [address] [place], [address] RDW SD Normal 35.1-43.9 [facility] Comment on above: Result Comment: Canc elled via OM: Order cancelled - Patient discharged Performed By: #### L 100.0100, L500.2500 ####[facility] [address] [place], [address] WBC Normal 4.4-11.0 [facility] Comment on above: Result Comment: Canc elled via OM: Order cancelled - Patient discharged Performed By: #### L 100.0100, L500.2500 ####[facility] [address] [place], [address] Basic Metabolic Profile (BMP )on 02-19-2025 BUN Normal 4-19 [facility] Comment on above: Result Comment: Canc elled via OM: Order cancelled - Patient discharged Performed By: #### L 500.2500, L100.0100 ####[facility] [address] [place], [address] BUN/CRE Normal 10-20 [facility] Comment on above: Result Comment: Canc elled via OM: Order cancelled - Patient discharged Performed By: #### L 500.2500, L100.0100 ####[facility] [address] [place], [address] Calcium Normal 7.6-11.0 [facility] Comment on above: Result Comment: Canc elled via OM: Order cancelled - Patient discharged Performed By: #### L 500.2500, L100.0100 ####[facility] [address] [place], [address] CL Normal 98-108 [facility] Comment on above: Result Comment: Canc elled via OM: Order cancelled - Patient discharged Performed By: #### L 500.2500, L100.0100 ####[facility] [address] [place], [address] CO2 Normal 21.0-32.0 [facility] Comment on above: Result Comment: Canc elled via OM: Order cancelled - Patient discharged Performed By: #### L 500.2500, L100.0100 ####[facility] [address] [place], [address] CREAT,SERUM Normal 0.70-1.20 [facility] Comment on above: Result Comment: Canc elled via OM: Order cancelled - Patient discharged Performed By: #### L 500.2500, L100.0100 ####[facility] [address] [place], [address] eGFR Normal >60 [facility] Comment on above: Result Comment: Canc elled via OM: Order cancelled - Patient discharged Performed By: #### L 500.2500, L100.0100 ####[facility] [address] [place], [address] GAP Normal 5-15 [facility] Comment on above: Result Comment: Canc elled via OM: Order cancelled - Patient discharged Performed By: #### L 500.2500, L100.0100 ####[facility] [address] [place], [address] GLU Normal 70-99 [facility] Comment on above: Result Comment: Canc elled via OM: Order cancelled - Patient discharged Performed By: #### L 500.2500, L100.0100 ####[facility] [address] [place], [address] Potassium Normal 3.3-5.1 [facility] Comment on above: Result Comment: Canc elled via OM: Order cancelled - Patient discharged Performed By: #### L 500.2500, L100.0100 ####[facility] [address] [place], [address] Basic Metabolic Profile (BMP) Normal 133-145 [facility] Comment on above: Result Comment: Canc elled via OM: Order cancelled - Patient discharged Performed By: #### L 500.2500, L100.0100 ####[facility] [address] [place], [address] CBC W/Diff, Automatedon 06-2 Absolute Neut Normal 2.0-7.7 [facility] Comment on above: Result Comment: Canc elled via OM: Order cancelled - Patient discharged Performed By: #### L 500.2500, L100.0100 ####[facility] [address] [place], [address] HCT Normal 37-47 [facility] Comment on above: Result Comment: Canc elled via OM: Order cancelled - Patient discharged Performed By: #### L 500.2500, L100.0100 ####[facility] [address] [place], [address] HGB Normal 12.0-15.0 [facility] Comment on above: Result Comment: Canc elled via OM: Order cancelled - Patient discharged Performed By: #### L 500.2500, L100.0100 ####[facility] [address] [place], [address] MCH Normal 27.0-32.0 [facility] Comment on above: Result Comment: Canc elled via OM: Order cancelled - Patient discharged Performed By: #### L 500.2500, L100.0100 ####[facility] [address] [place], [address] MCHC Normal 32-36 [facility] Comment on above: Result Comment: Canc elled via OM: Order cancelled - Patient discharged Performed By: #### L 500.2500, L100.0100 ####[facility] [address] [place], [address] MCV Normal 81-99 [facility] Comment on above: Result Comment: Canc elled via OM: Order cancelled - Patient discharged Performed By: #### L 500.2500, L100.0100 ####[facility] [address] [place], [address] NEUT% Normal 47-70 [facility] Comment on above: Result Comment: Canc elled via OM: Order cancelled - Patient discharged Performed By: #### L 500.2500, L100.0100 ####[facility] [address] [place], [address] PLT Normal 150-450 [facility] Comment on above: Result Comment: Canc elled via OM: Order cancelled - Patient discharged Performed By: #### L 500.2500, L100.0100 ####[facility] [address] [place], [address] RBC Normal 4.2-5.4 [facility] Comment on above: Result Comment: Canc elled via OM: Order cancelled - Patient discharged Performed By: #### L 500.2500, L100.0100 ####[facility] [address] [place], [address] RDW CV Normal 11.6-14.6 [facility] Comment on above: Result Comment: Canc elled via OM: Order cancelled - Patient discharged Performed By: #### L 500.2500, L100.0100 ####[facility] [address] [place], [address] RDW SD Normal 35.1-43.9 [facility] Comment on above: Result Comment: Canc elled via OM: Order cancelled - Patient discharged Performed By: #### L 500.2500, L100.0100 ####[facility] [address] [place], [address] WBC Normal 4.4-11.0 [facility] Comment on above: Result Comment: Canc elled via OM: Order cancelled - Patient discharged Performed By: #### L 500.2500, L100.0100 ####[facility] [address] [place], [address] 12 Lead EKGon 02-18-2025 12 Lead EKG Normal [facility] Absolute lymphocyte countOrd ered By: Billy Kothari on 02-18-2025 Lymphocytes Auto (Unsp spec) [#/Vol] 1.53 10*3/uL 0.83-4.51 [facility] Anion gap in Serum or Plasma Ordered By: Billy Kothari on 02-18-2025 Anion gap [Moles/Vol] 11 mmol/L 5-15 [facility] Automated lymphocyte count a s percentage of total leukocytesOrdered By: Billy Kothari on 02-18-2025 Lymphocytes/100 WBC Auto (Unsp spec) 12.5 % Low 19-41 [facility] BUN/creatinine ratioOrdered By: Billy Kothari on 02-18-2025 Urea nitrogen/Creatinine [Mass ratio] 19.9 mg/mg - [facility] Basic Metabolic Profile (BMP )on 02-18-2025 BUN/CRE 19.9 RATIO Normal - [facility] Comment on above: Performed By: #### L 500.2500, L100.0100 ####[facility] [address] [place], [address] Calcium [Mass/Vol] 10.7 mg/dL Normal 7.6-11.0 [facility] Comment on above: Performed By: #### L 500.2500, L100.0100 ####[facility] [address] [place], [address] Chloride [Moles/Vol] 97 mmol/L Low 98-108 [facility] Comment on above: Performed By: #### L 500.2500, L100.0100 ####[facility] [address] [place], [address] CO2 [Moles/Vol] 28.1 mmol/L Normal 21.0-32.0 [facility] Comment on above: Performed By: #### L 500.2500, L100.0100 ####[facility] [address] [place], [address] Creatinine [Mass/Vol] 1.26 mg/dL High 0.70-1.20 [facility] Comment on above: Performed By: #### L 500.2500, L100.0100 ####[facility] [address] [place], [address] ECRCL 34.58 ml/min Low 50-250 [facility] Comment on above: Performed By: #### L 500.2500, L100.0100 ####[facility] [address] [place], [address] GAP 11 Normal 5-15 [facility] Comment on above: Performed By: #### L 500.2500, L100.0100 ####[facility] [address] [place], [address] GFR/1.73 sq M.predicted among non-blacks MDRD (S/P/Bld) [Vol rate/Area] 43 mL/min/{1.73_m2} Low >60 [facility] Comment on above: Result Comment: mL/m in/1.73m2 CKD-EPI Creatinine Equation (2020) Performed By: #### L 500.2500, L100.0100 ####[facility] [address] [place], [address] Glucose [Mass/Vol] 174 mg/dL High 70-99 [facility] Comment on above: Performed By: #### L 500.2500, L100.0100 ####[facility] [address] [place], [address] Potassium [Moles/Vol] 6.0 mmol/L Invalid Interpretation Code 3.3-5.1 [facility] Comment on above: Result Comment: Hemo lysis present, Results??could be affected.??Critical Result(s) Called EFINK at: 2254 by:VIET??Results read back by same.Hemolysis present, Results??could be affected.?? Performed By: #### L 500.2500, L100.0100 ####[facility] [address] [place], [address] Sodium [Moles/Vol] 136 mmol/L Normal 133-145 [facility] Comment on above: Performed By: #### L 500.2500, L100.0100 ####[facility] [address] [place], [address] Urea nitrogen [Mass/Vol] 25 mg/dL High 4-19 [facility] Comment on above: Performed By: #### L 500.2500, L100.0100 ####[facility] [address] [place], [address] BUN Normal 4-19 [facility] Comment on above: Result Comment: Canc elled via OM: Order cancelled - Patient discharged Performed By: #### L 100.0100, L500.2500 ####[facility] [address] [place], [address] BUN/CRE Normal 10-20 [facility] Comment on above: Result Comment: Canc elled via OM: Order cancelled - Patient discharged Performed By: #### L 100.0100, L500.2500 ####[facility] [address] [place], [address] Calcium Normal 7.6-11.0 [facility] Comment on above: Result Comment: Canc elled via OM: Order cancelled - Patient discharged Performed By: #### L 100.0100, L500.2500 ####[facility] [address] [place], [address] CL Normal 98-108 [facility] Comment on above: Result Comment: Canc elled via OM: Order cancelled - Patient discharged Performed By: #### L 100.0100, L500.2500 ####[facility] [address] [place], [address] CO2 Normal 21.0-32.0 [facility] Comment on above: Result Comment: Canc elled via OM: Order cancelled - Patient discharged Performed By: #### L 100.0100, L500.2500 ####[facility] [address] [place], [address] CREAT,SERUM Normal 0.70-1.20 [facility] Comment on above: Result Comment: Canc elled via OM: Order cancelled - Patient discharged Performed By: #### L 100.0100, L500.2500 ####[facility] [address] [place], [address] eGFR Normal >60 [facility] Comment on above: Result Comment: Canc elled via OM: Order cancelled - Patient discharged Performed By: #### L 100.0100, L500.2500 ####[facility] [address] [place], [address] GAP Normal 5-15 [facility] Comment on above: Result Comment: Canc elled via OM: Order cancelled - Patient discharged Performed By: #### L 100.0100, L500.2500 ####[facility] [address] [place], [address] GLU Normal 70-99 [facility] Comment on above: Result Comment: Canc elled via OM: Order cancelled - Patient discharged Performed By: #### L 100.0100, L500.2500 ####[facility] [address] [place], [address] Potassium Normal 3.3-5.1 [facility] Comment on above: Result Comment: Canc elled via OM: Order cancelled - Patient discharged Performed By: #### L 100.0100, L500.2500 ####[facility] [address] [place], [address] Basic Metabolic Profile (BMP) Normal 133-145 [facility] Comment on above: Result Comment: Canc elled via OM: Order cancelled - Patient discharged Performed By: #### L 100.0100, L500.2500 ####[facility] [address] [place], [address] Basophil percentageOrdered B y: Billy Becerraa on 02-18-2025 Basophils/100 WBC (Bld) 0.2 % 0-1 [facility] CBC W/Diff, Automatedon 01-30 Absolute Lymph 1.53 X10 3/uL Normal 0.83-4.51 [facility] Comment on above: Performed By: #### L 500.2500, L100.0100 ####[facility] [address] [place], [address] Absolute Neut 9.6 X10 3/uL High 2.0-7.7 [facility] Comment on above: Performed By: #### L 500.2500, L100.0100 ####[facility] [address] [place], [address] Basophils/100 WBC (Bld) 0.2 % Normal 0-1 [facility] Comment on above: Performed By: #### L 500.2500, L100.0100 ####[facility] [address] [place], [address] Eosinophils/100 WBC (Bld) 1.0 % Normal 0-5 [facility] Comment on above: Performed By: #### L 500.2500, L100.0100 ####[facility] [address] [place], [address] Erythrocyte distribution width (RBC) [Ratio] 15.9 % High 11.6-14.6 [facility] Comment on above: Performed By: #### L 500.2500, L100.0100 ####[facility] [address] [place], [address] Hematocrit (Bld) [Volume fraction] 35.8 % Low 37-47 [facility] Comment on above: Performed By: #### L 500.2500, L100.0100 ####[facility] [address] [place], [address] Hemoglobin (Bld) [Mass/Vol] 10.9 g/dL Low 12.0-15.0 [facility] Comment on above: Performed By: #### L 500.2500, L100.0100 ####[facility] [address] [place], [address] IG% 0.900 Normal 0.0-0.9 [facility] Comment on above: Result Comment: IG% - Immature Granulocytes (promyelocytes, myelocytes andmetamyelocytes) > 1% indicates that a LEFT SHIFT is Present. Performed By: #### L 500.2500, L100.0100 ####[facility] [address] [place], [address] Lymphocytes/100 WBC (Bld) 12.5 % Low 19-41 [facility] Comment on above: Performed By: #### L 500.2500, L100.0100 ####[facility] [address] [place], [address] MCH (RBC) [Entitic mass] 27.9 pg Normal 27.0-32.0 [facility] Comment on above: Performed By: #### L 500.2500, L100.0100 ####[facility] [address] [place], [address] MCHC (RBC) [Mass/Vol] 30.4 g/dL Low 32-36 [facility] Comment on above: Performed By: #### L 500.2500, L100.0100 ####[facility] [address] [place], [address] MCV (RBC) [Entitic vol] 91.6 fL Normal 81-99 [facility] Comment on above: Performed By: #### L 500.2500, L100.0100 ####[facility] [address] [place], [address] Monocytes/100 WBC (Bld) 6.7 % Normal 0-10 [facility] Comment on above: Performed By: #### L 500.2500, L100.0100 ####[facility] [address] [place], [address] Neutrophils/100 WBC (Bld) 78.7 % High 47-70 [facility] Comment on above: Performed By: #### L 500.2500, L100.0100 ####[facility] [address] [place], [address] Nucleated RBC (Bld) [#/Vol] 0 10*3/uL Normal 0-5 [facility] Comment on above: Performed By: #### L 500.2500, L100.0100 ####[facility] [address] [place], [address] Platelet mean volume (Bld) [Entitic vol] 11.5 fL Normal 6.2-12.0 [facility] Comment on above: Performed By: #### L 500.2500, L100.0100 ####[facility] [address] [place], [address] Platelets (Bld) [#/Vol] 337 10*3/uL Normal 150-450 [facility] Comment on above: Performed By: #### L 500.2500, L100.0100 ####[facility] [address] [place], [address] RBC (Bld) [#/Vol] 3.91 10*6/uL Low 4.2-5.4 [facility] Comment on above: Performed By: #### L 500.2500, L100.0100 ####[facility] [address] [place], [address] RDW SD 52.1 fl High 35.1-43.9 [facility] Comment on above: Performed By: #### L 500.2500, L100.0100 ####[facility] [address] [place], [address] WBC (Bld) [#/Vol] 12.2 10*3/uL High 4.4-11.0 [facility] Comment on above: Performed By: #### L 500.2500, L100.0100 ####[facility] [address] [place], [address] Absolute Neut Normal 2.0-7.7 [facility] Comment on above: Result Comment: Canc elled via OM: Order cancelled - Patient discharged Performed By: #### L 100.0100, L500.2500 ####[facility] [address] [place], [address] HCT Normal 37-47 [facility] Comment on above: Result Comment: Canc elled via OM: Order cancelled - Patient discharged Performed By: #### L 100.0100, L500.2500 ####[facility] [address] [place], [address] HGB Normal 12.0-15.0 [facility] Comment on above: Result Comment: Canc elled via OM: Order cancelled - Patient discharged Performed By: #### L 100.0100, L500.2500 ####[facility] [address] [place], [address] MCH Normal 27.0-32.0 [facility] Comment on above: Result Comment: Canc elled via OM: Order cancelled - Patient discharged Performed By: #### L 100.0100, L500.2500 ####[facility] [address] [place], [address] MCHC Normal 32-36 [facility] Comment on above: Result Comment: Canc elled via OM: Order cancelled - Patient discharged Performed By: #### L 100.0100, L500.2500 ####[facility] [address] [place], [address] MCV Normal 81-99 [facility] Comment on above: Result Comment: Canc elled via OM: Order cancelled - Patient discharged Performed By: #### L 100.0100, L500.2500 ####[facility] [address] [place], [address] NEUT% Normal 47-70 [facility] Comment on above: Result Comment: Canc elled via OM: Order cancelled - Patient discharged Performed By: #### L 100.0100, L500.2500 ####[facility] [address] [place], [address] PLT Normal 150-450 [facility] Comment on above: Result Comment: Canc elled via OM: Order cancelled - Patient discharged Performed By: #### L 100.0100, L500.2500 ####[facility] [address] [place], [address] RBC Normal 4.2-5.4 [facility] Comment on above: Result Comment: Canc elled via OM: Order cancelled - Patient discharged Performed By: #### L 100.0100, L500.2500 ####[facility] [address] [place], [address] RDW CV Normal 11.6-14.6 [facility] Comment on above: Result Comment: Canc elled via OM: Order cancelled - Patient discharged Performed By: #### L 100.0100, L500.2500 ####[facility] [address] [place], [address] RDW SD Normal 35.1-43.9 [facility] Comment on above: Result Comment: Canc elled via OM: Order cancelled - Patient discharged Performed By: #### L 100.0100, L500.2500 ####[facility] [address] [place], [address] WBC Normal 4.4-11.0 [facility] Comment on above: Result Comment: Canc elled via OM: Order cancelled - Patient discharged Performed By: #### L 100.0100, L500.2500 ####[facility] [address] [place], [address] Carbon dioxide, total [Moles /volume] in Central venous bloodOrdered By: Billy Kothari on 02-18-2025 CO2 [Moles/Vol] 28.1 mmol/L 21.0-32.0 [facility] Chest 1 View (Portable)on Chest 1 View (Portable) Normal [facility] Chloride assayOrdered By: Dante Kothari on 02-18-2025 Chloride [Moles/Vol] 97 mmol/L Low 98-108 [facility] Emergency Department Summary on 02-18-2025 Emergency Department Summary Normal [facility] Eosinophil percentageOrdered By: Billy Kothari on 02-18-2025 Eosinophils/100 WBC (Bld) 1.0 % 0-5 [facility] Erythrocyte distribution wid th ratioOrdered By: Billy Kothari on 02-18-2025 Erythrocyte distribution width (RBC) [Ratio] 15.9 % High 11.6-14.6 [facility] Erythrocyte distribution wid th standard deviationOrdered By: Billy Kothari on 02-18-2025 Erythrocyte distribution width (RBC) [Ratio] 52.1 fl High 35.1-43.9 [facility] Glomerular filtration rate ( GFR) estimation/1.73 sq m using serum, plasma, or whole bOrdered By: Billy Kothari on 02-18-2025 GFR/1.73 sq M.predicted among non-blacks MDRD (S/P/Bld) [Vol rate/Area] 43 mL/min/{1.73_m2} Low >60 [facility] Hematocrit Auto (Bld) [Volum e fraction]Ordered By: Billy Kothari on 02-18-2025 Hematocrit (Bld) [Volume fraction] 35.8 % Low 37-47 [facility] Hemoglobin measurementOrdere d By: Billy Kothari on 02-18-2025 Hemoglobin (Bld) [Mass/Vol] 10.9 g/dL Low 12.0-15.0 [facility] Immature granulocytes/100 WB C Auto (Bld)Ordered By: Billy Kothari on 02-18-2025 Immature granulocytes/100 WBC (Bld) 0.900 % 0.0-0.9 [facility] L503.7505on 02-18-2025 Natriuretic peptide B (Bld) [Mass/Vol] 3811 pg/mL High <=1800 [facility] Comment on above: Result Comment: Hear t Failure Unlikely: < 300 pg/mLHeart Failure Likely< 50 Years: > 450 pg/mL50-75 Years: > 900 pg/mL>75 Years: > 1800 pg/mL Performed By: #### L 503.7505 ####[facility] [address] [place], [address] MCV (mean corpuscular volume ) determinationOrdered By: Billy Kothari on 02-18-2025 MCV (RBC) [Entitic vol] 91.6 fL 81-99 [facility] Mean corpuscular hemoglobin (MCH) determinationOrdered By: Billy Kothari on 02-18-2025 MCH (RBC) [Entitic mass] 27.9 pg 27.0-32.0 [facility] Monocyte percentageOrdered B y: Billy Kothari on 02-18-2025 Monocytes/100 WBC (Bld) 6.7 % 0-10 [facility] Natriuretic peptide.B prohor hayley N-Terminal [Mass/volume] in Serum or PlasmaOrdered By: Billy Kothari on 02-18-2025 Natriuretic peptide.B prohormone N-Terminal [Mass/Vol] 3811 pg/mL High <1800 [facility] Neutrophil percentageOrdered By: Billy Kothari on 02-18-2025 Neutrophils/100 WBC (Bld) 78.7 % High 47-70 [facility] Platelet countOrdered By: Dante Kothari on 02-18-2025 Platelets (Bld) [#/Vol] 337 10*3/uL 150-450 [facility] Potassiumon 02-18-2025 Potassium [Moles/Vol] 4.7 mmol/L Normal 3.3-5.1 [facility] Comment on above: Performed By: #### L 501.5600 ####[facility] [address] [place], [address] Potassium measurement (mass/ volume)Ordered By: Billy Kothari on 02-18-2025 Potassium (Unsp spec) [Mass/Vol] 4.7 mmol/L 3.3-5.1 [facility] RBC Auto (Bld) [#/Vol]Ordere d By: Billy Kothari on 02-18-2025 RBC (Bld) [#/Vol] 3.91 10*6/uL Low 4.2-5.4 [facility] Respiratory Cultureon 2024 RESPC Mixed normal respiratory karin. No Streptococcus pneumoniae, beta-hemolytic Streptococcus or Staphylococcus aureus isolated. Normal [facility] Comment on above: Performed By: #### M 100.2000, M100.2400 ####[facility] [address] [place], [address] Serum creatinine measurement (mass/volume)Ordered By: Billy Kothari on 02-18-2025 Creatinine [Mass/Vol] 1.26 mg/dL High 0.70-1.20 [facility] Serum glucose measurement (m ass/volume)Ordered By: Billy Kothari on 02-18-2025 Glucose [Mass/Vol] 174 mg/dL High 70-99 [facility] Serum or plasma calcium melanie urement (mass/volume)Ordered By: Billy Kothari on 02-18-2025 Calcium [Mass/Vol] 10.7 mg/dL 7.6-11.0 [facility] Serum or plasma urea nitroge n measurement (mass/volume)Ordered By: Billy Kothari on 02-18-2025 Urea nitrogen [Mass/Vol] 25 mg/dL High 4-19 [facility] Sodium levelOrdered By: Billy Kothari on 02-18-2025 Sodium [Moles/Vol] 136 mmol/L 133-145 [facility] White blood cell (WBC) count Ordered By: Billy Kothari on 02-18-2025 WBC (Bld) [#/Vol] 12.2 10*3/uL High 4.4-11.0 [facility] Absolute lymphocyte countOrd ered By: Heydi Amaya on 02-17-2025 Lymphocytes Auto (Unsp spec) [#/Vol] 0.58 10*3/uL Low 0.83-4.51 [facility] Anion gap in Serum or Plasma Ordered By: Heydi Amaya on 02-17-2025 Anion gap [Moles/Vol] 12 mmol/L 5-15 [facility] Automated lymphocyte count a s percentage of total leukocytesOrdered By: Heydi Amaya on 02-17-2025 Lymphocytes/100 WBC Auto (Unsp spec) 7.8 % Low 19-41 [facility] BUN/creatinine ratioOrdered By: Heydi Amaya on 02-17-2025 Urea nitrogen/Creatinine [Mass ratio] 23.0 mg/mg High 10- [facility] Basic Metabolic Profile (BMP )on 02-17-2025 BUN/CRE 23.0 RATIO High - [facility] Comment on above: Performed By: #### L 500.2500, L100.0100 ####[facility] [address] [place], [address] Calcium [Mass/Vol] 10.3 mg/dL Normal 7.6-11.0 [facility] Comment on above: Performed By: #### L 500.2500, L100.0100 ####[facility] [address] [place], [address] Chloride [Moles/Vol] 98 mmol/L Normal 98-108 [facility] Comment on above: Performed By: #### L 500.2500, L100.0100 ####[facility] [address] [place], [address] CO2 [Moles/Vol] 23.5 mmol/L Normal 21.0-32.0 [facility] Comment on above: Performed By: #### L 500.2500, L100.0100 ####[facility] [address] [place], [address] Creatinine [Mass/Vol] 1.15 mg/dL Normal 0.70-1.20 [facility] Comment on above: Performed By: #### L 500.2500, L100.0100 ####[facility] [address] [place], [address] ECRCL 37.29 ml/min Low 50-250 [facility] Comment on above: Performed By: #### L 500.2500, L100.0100 ####[facility] [address] [place], [address] GAP 12 Normal 5-15 [facility] Comment on above: Performed By: #### L 500.2500, L100.0100 ####[facility] [address] [place], [address] GFR/1.73 sq M.predicted among non-blacks MDRD (S/P/Bld) [Vol rate/Area] 48 mL/min/{1.73_m2} Low >60 [facility] Comment on above: Result Comment: mL/m in/1.73m2 CKD-EPI Creatinine Equation (2020) Performed By: #### L 500.2500, L100.0100 ####[facility] [address] [place], [address] Glucose [Mass/Vol] 426 mg/dL High 70-99 [facility] Comment on above: Performed By: #### L 500.2500, L100.0100 ####[facility] [address] [place], [address] Potassium [Moles/Vol] 5.3 mmol/L High 3.3-5.1 [facility] Comment on above: Performed By: #### L 500.2500, L100.0100 ####[facility] [address] [place], [address] Sodium [Moles/Vol] 134 mmol/L Normal 133-145 [facility] Comment on above: Performed By: #### L 500.2500, L100.0100 ####[facility] [address] [place], [address] Urea nitrogen [Mass/Vol] 27 mg/dL High 4-19 [facility] Comment on above: Performed By: #### L 500.2500, L100.0100 ####[facility] [address] [place], [address] Basophil percentageOrdered B y: Heydi Amaya on 02-17-2025 Basophils/100 WBC (Bld) 0.1 % 0-1 [facility] Bedside Glucoseon 02-17-2024 FINGERSTICK GLU 241 mg/dL High 74-106 [facility] Comment on above: Result Comment: KATARINA GEMENT OF PATIENT CARE PER NURSING PROTOCOL Performed By: #### L 501.080 ####[facility] [address] [place], [address] FINGERSTICK GLU 419 mg/dL High 74-106 [facility] Comment on above: Result Comment: KATARINA GEMENT OF PATIENT CARE PER NURSING PROTOCOL Performed By: #### L 501.080 ####[facility] [address] [place], [address] FINGERSTICK GLU 488 mg/dL Invalid Interpretation Code 74-106 [facility] Comment on above: Result Comment: KATARINA GEMENT OF PATIENT CARE PER NURSING PROTOCOL Performed By: #### L 501.080 ####[facility] [address] [place], [address] CBC W/Diff, Automatedon 06-2 0-2024 Absolute Lymph 0.58 X10 3/uL Low 0.83-4.51 [facility] Comment on above: Performed By: #### L 500.2500, L100.0100 ####[facility] [address] [place], [address] Absolute Neut 6.4 X10 3/uL Normal 2.0-7.7 [facility] Comment on above: Performed By: #### L 500.2500, L100.0100 ####[facility] [address] [place], [address] Basophils/100 WBC (Bld) 0.1 % Normal 0-1 [facility] Comment on above: Performed By: #### L 500.2500, L100.0100 ####[facility] [address] [place], [address] Eosinophils/100 WBC (Bld) 0.1 % Normal 0-5 [facility] Comment on above: Performed By: #### L 500.2500, L100.0100 ####[facility] [address] [place], [address] Erythrocyte distribution width (RBC) [Ratio] 15.6 % High 11.6-14.6 [facility] Comment on above: Performed By: #### L 500.2500, L100.0100 ####[facility] [address] [place], [address] Hematocrit (Bld) [Volume fraction] 32.6 % Low 37-47 [facility] Comment on above: Performed By: #### L 500.2500, L100.0100 ####[facility] [address] [place], [address] Hemoglobin (Bld) [Mass/Vol] 9.9 g/dL Low 12.0-15.0 [facility] Comment on above: Performed By: #### L 500.2500, L100.0100 ####[facility] [address] [place], [address] IG% 0.900 Normal 0.0-0.9 [facility] Comment on above: Result Comment: IG% - Immature Granulocytes (promyelocytes, myelocytes andmetamyelocytes) > 1% indicates that a LEFT SHIFT is Present. Performed By: #### L 500.2500, L100.0100 ####[facility] [address] [place], [address] Lymphocytes/100 WBC (Bld) 7.8 % Low 19-41 [facility] Comment on above: Performed By: #### L 500.2500, L100.0100 ####[facility] [address] [place], [address] MCH (RBC) [Entitic mass] 27.7 pg Normal 27.0-32.0 [facility] Comment on above: Performed By: #### L 500.2500, L100.0100 ####[facility] [address] [place], [address] MCHC (RBC) [Mass/Vol] 30.4 g/dL Low 32-36 [facility] Comment on above: Performed By: #### L 500.2500, L100.0100 ####[facility] [address] [place], [address] MCV (RBC) [Entitic vol] 91.3 fL Normal 81-99 [facility] Comment on above: Performed By: #### L 500.2500, L100.0100 ####[facility] [address] [place], [address] Monocytes/100 WBC (Bld) 5.0 % Normal 0-10 [facility] Comment on above: Performed By: #### L 500.2500, L100.0100 ####[facility] [address] [place], [address] Neutrophils/100 WBC (Bld) 86.1 % High 47-70 [facility] Comment on above: Performed By: #### L 500.2500, L100.0100 ####[facility] [address] [place], [address] Nucleated RBC (Bld) [#/Vol] 0 10*3/uL Normal 0-5 [facility] Comment on above: Performed By: #### L 500.2500, L100.0100 ####[facility] [address] [place], [address] Platelet mean volume (Bld) [Entitic vol] 11.2 fL Normal 6.2-12.0 [facility] Comment on above: Performed By: #### L 500.2500, L100.0100 ####[facility] [address] [place], [address] Platelets (Bld) [#/Vol] 246 10*3/uL Normal 150-450 [facility] Comment on above: Performed By: #### L 500.2500, L100.0100 ####[facility] [address] [place], [address] RBC (Bld) [#/Vol] 3.57 10*6/uL Low 4.2-5.4 [facility] Comment on above: Performed By: #### L 500.2500, L100.0100 ####[facility] [address] [place], [address] RDW SD 51.5 fl High 35.1-43.9 [facility] Comment on above: Performed By: #### L 500.2500, L100.0100 ####[facility] [address] [place], [address] WBC (Bld) [#/Vol] 7.5 10*3/uL Normal 4.4-11.0 [facility] Comment on above: Performed By: #### L 500.2500, L100.0100 ####[facility] [address] [place], [address] Carbon dioxide, total [Moles /volume] in Central venous bloodOrdered By: Heydi Amaya on 02-17-2025 CO2 [Moles/Vol] 23.5 mmol/L 21.0-32.0 [facility] Chloride assayOrdered By: Davy Amaya on 02-17-2025 Chloride [Moles/Vol] 98 mmol/L 98-108 [facility] Electrocardiogram reportOrde red By: Marcelina Soto on 02-17-2025 EKG study [facility] Work Phone: [phone] Eosinophil percentageOrdered By: Heydi Amaya on 02-17-2025 Eosinophils/100 WBC (Bld) 0.1 % 0-5 [facility] Erythrocyte distribution wid th ratioOrdered By: Heydi Amaya on 02-17-2025 Erythrocyte distribution width (RBC) [Ratio] 15.6 % High 11.6-14.6 [facility] Erythrocyte distribution wid th standard deviationOrdered By: Heydi Amaya on 02-17-2025 Erythrocyte distribution width (RBC) [Ratio] 51.5 fl High 35.1-43.9 [facility] Glomerular filtration rate ( GFR) estimation/1.73 sq m using serum, plasma, or whole bOrdered By: Heydi Amaya on 02-17-2025 GFR/1.73 sq M.predicted among non-blacks MDRD (S/P/Bld) [Vol rate/Area] 48 mL/min/{1.73_m2} Low >60 [facility] deOrdered By: Heydi Amaya on 02-17-2025 Glucose [Mass/Vol] 241 mg/dL High 74-106 [facility] Hematocrit Auto (Bld) [Volum e fraction]Ordered By: Heydi Amaya on 02-17-2025 Hematocrit (Bld) [Volume fraction] 32.6 % Low 37-47 [facility] Hemoglobin measurementOrdere d By: Heydi Amaya on 02-17-2025 Hemoglobin (Bld) [Mass/Vol] 9.9 g/dL Low 12.0-15.0 [facility] Immature granulocytes/100 WB C Auto (Bld)Ordered By: Heydi Amaya on 02-17-2025 Immature granulocytes/100 WBC (Bld) 0.900 % 0.0-0.9 [facility] MCV (mean corpuscular volume ) determinationOrdered By: Heydi Amaya on 02-17-2025 MCV (RBC) [Entitic vol] 91.3 fL 81-99 [facility] Mean corpuscular hemoglobin (MCH) determinationOrdered By: Heydi Amaya on 02-17-2025 MCH (RBC) [Entitic mass] 27.7 pg 27.0-32.0 [facility] Monocyte percentageOrdered B y: Heydi Amaya on 02-17-2025 Monocytes/100 WBC (Bld) 5.0 % 0-10 [facility] Neutrophil percentageOrdered By: Heydi Amaya on 02-17-2025 Neutrophils/100 WBC (Bld) 86.1 % High 47-70 [facility] Platelet countOrdered By: Davy Amaya on 02-17-2025 Platelets (Bld) [#/Vol] 246 10*3/uL 150-450 [facility] Potassium measurement (mass/ volume)Ordered By: Heydi Amaya on 02-17-2025 Potassium (Unsp spec) [Mass/Vol] 5.3 mmol/L High 3.3-5.1 [facility] RBC Auto (Bld) [#/Vol]Ordere d By: Heydi Amaya on 02-17-2025 RBC (Bld) [#/Vol] 3.57 10*6/uL Low 4.2-5.4 [facility] Serum creatinine measurement (mass/volume)Ordered By: Heydi Amaya on 02-17-2025 Creatinine [Mass/Vol] 1.15 mg/dL 0.70-1.20 [facility] Serum glucose measurement (m ass/volume)Ordered By: Heydi Amaya on 02-17-2025 Glucose [Mass/Vol] 426 mg/dL High 70-99 [facility] Serum or plasma calcium melanie urement (mass/volume)Ordered By: Heydi Amaya on 02-17-2025 Calcium [Mass/Vol] 10.3 mg/dL 7.6-11.0 [facility] Serum or plasma urea nitroge n measurement (mass/volume)Ordered By: Heydi Amaya on 02-17-2025 Urea nitrogen [Mass/Vol] 27 mg/dL High 12-17 [facility] Sodium levelOrdered By: Rodolfo Amaya on 02-17-2025 Sodium [Moles/Vol] 134 mmol/L 133-145 [facility] White blood cell (WBC) count Ordered By: Heydi Amaya on 02-17-2025 WBC (Bld) [#/Vol] 7.5 10*3/uL 4.4-11.0 [facility] Basic Metabolic Profile (BMP )on 02-16-2025 BUN/CRE 22.0 RATIO High 06-19 [facility] Comment on above: Performed By: #### L 500.2500, L100.0500 ####[facility] [address] [place], [address] Calcium [Mass/Vol] 10.7 mg/dL Normal 7.6-11.0 [facility] Comment on above: Performed By: #### L 500.2500, L100.0500 ####[facility] [address] [place], [address] Chloride [Moles/Vol] 97 mmol/L Low 98-108 [facility] Comment on above: Performed By: #### L 500.2500, L100.0500 ####[facility] [address] [place], [address] CO2 [Moles/Vol] 29.5 mmol/L Normal 21.0-32.0 [facility] Comment on above: Performed By: #### L 500.2500, L100.0500 ####[facility] [address] [place], [address] Creatinine [Mass/Vol] 0.97 mg/dL Normal 0.70-1.20 [facility] Comment on above: Performed By: #### L 500.2500, L100.0500 ####[facility] [address] [place], [address] ECRCL 44.69 ml/min Low 50-250 [facility] Comment on above: Performed By: #### L 500.2500, L100.0500 ####[facility] [address] [place], [address] GAP 12 Normal 5-15 [facility] Comment on above: Performed By: #### L 500.2500, L100.0500 ####[facility] [address] [place], [address] GFR/1.73 sq M.predicted among non-blacks MDRD (S/P/Bld) [Vol rate/Area] 58 mL/min/{1.73_m2} Low >60 [facility] Comment on above: Result Comment: mL/m in/1.73m2 CKD-EPI Creatinine Equation (2020) Performed By: #### L 500.2500, L100.0500 ####[facility] [address] [place], [address] Glucose [Mass/Vol] 98 mg/dL Normal 70-99 [facility] Comment on above: Performed By: #### L 500.2500, L100.0500 ####[facility] [address] [place], [address] Potassium [Moles/Vol] 4.7 mmol/L Normal 3.3-5.1 [facility] Comment on above: Performed By: #### L 500.2500, L100.0500 ####[facility] [address] [place], [address] Sodium [Moles/Vol] 138 mmol/L Normal 133-145 [facility] Comment on above: Performed By: #### L 500.2500, L100.0500 ####[facility] [address] [place], [address] Urea nitrogen [Mass/Vol] 21 mg/dL High -19 [facility] Comment on above: Performed By: #### L 500.2500, L100.0500 ####[facility] [address] [place], [address] Bedside Glucoseon 02-16-2025 FINGERSTICK GLU 254 mg/dL High 74-106 [facility] Comment on above: Result Comment: KATARINA GEMENT OF PATIENT CARE PER NURSING PROTOCOL Performed By: #### L 501.080 ####[facility] [address] [place], [address] FINGERSTICK GLU 234 mg/dL High 74-106 [facility] Comment on above: Result Comment: KATARINA GEMENT OF PATIENT CARE PER NURSING PROTOCOL Performed By: #### L 501.080 ####[facility] [address] [place], [address] FINGERSTICK GLU 91 mg/dL Normal 74-106 [facility] Comment on above: Result Comment: KATARINA GEMENT OF PATIENT CARE PER NURSING PROTOCOL Performed By: #### L 501.080 ####[facility] [address] [place], [address] FINGERSTICK GLU 63 mg/dL Low 74-106 [facility] Comment on above: Result Comment: KATARINA GEMENT OF PATIENT CARE PER NURSING PROTOCOL Performed By: #### L 501.080 ####[facility] [address] [place], [address] CBC-Complete Blood Cnt No Di ffon 02-16-2025 Erythrocyte distribution width (RBC) [Ratio] 16.1 % High 11.6-14.6 [facility] Comment on above: Performed By: #### L 500.2500, L100.0500 ####[facility] [address] [place], [address] Hematocrit (Bld) [Volume fraction] 36.2 % Low 37-47 [facility] Comment on above: Performed By: #### L 500.2500, L100.0500 ####[facility] [address] [place], [address] Hemoglobin (Bld) [Mass/Vol] 11.0 g/dL Low 12.0-15.0 [facility] Comment on above: Performed By: #### L 500.2500, L100.0500 ####[facility] [address] [place], [address] MCH (RBC) [Entitic mass] 27.4 pg Normal 27.0-32.0 [facility] Comment on above: Performed By: #### L 500.2500, L100.0500 ####[facility] [address] [place], [address] MCHC (RBC) [Mass/Vol] 30.4 g/dL Low 32-36 [facility] Comment on above: Performed By: #### L 500.2500, L100.0500 ####[facility] [address] [place], [address] MCV (RBC) [Entitic vol] 90.0 fL Normal 81-99 [facility] Comment on above: Performed By: #### L 500.2500, L100.0500 ####[facility] [address] [place], [address] Platelet mean volume (Bld) [Entitic vol] 11.0 fL Normal 6.2-12.0 [facility] Comment on above: Performed By: #### L 500.2500, L100.0500 ####[facility] [address] [place], [address] Platelets (Bld) [#/Vol] 250 10*3/uL Normal 150-450 [facility] Comment on above: Performed By: #### L 500.2500, L100.0500 ####[facility] [address] [place], [address] RBC (Bld) [#/Vol] 4.02 10*6/uL Low 4.2-5.4 [facility] Comment on above: Performed By: #### L 500.2500, L100.0500 ####[facility] [address] [place], [address] RDW SD 52.3 fl High 35.1-43.9 [facility] Comment on above: Performed By: #### L 500.2500, L100.0500 ####[facility] [address] [place], [address] WBC (Bld) [#/Vol] 9.2 10*3/uL Normal 4.4-11.0 [facility] Comment on above: Performed By: #### L 500.2500, L100.0500 ####[facility] [address] [place], [address] Gram Stainon 02-16-2025 GS Acceptable Specimen? Yes (<25 Epithelial cells per/lpf) Gram Stain Rare Gram positive cocci Rare Gram positive rods No Epithelial cells Rare White Blood Cells Normal [facility] Comment on above: Performed By: #### M 100.2000, M100.2400 ####[facility] [address] [place], [place], [address] Gram stainOrdered By: Ankit Jean-Baptiste on 02-16-2025 Microscopic observation Gram stain Nom (Unsp spec) [facility] Microbial respiratory cultur eOrdered By: Nestor Bartlett on 02-16-2025 Microorganism identified Cx Nom (Unsp spec) or Staphylococcus aureus isolated. [facility] 12 Lead EKGon 02-15-2025 12 Lead EKG Normal [facility] Absolute lymphocyte countOrd ered By: Remus Allison on 02-15-2025 Lymphocytes Auto (Unsp spec) [#/Vol] 0.98 10*3/uL 0.83-4.51 [facility] Anion gap in Serum or Plasma Ordered By: Remus Keegan on 02-15-2025 Anion gap [Moles/Vol] 9 mmol/L 5-15 [facility] Automated lymphocyte count a s percentage of total leukocytesOrdered By: Remus Keegan on 02-15-2025 Lymphocytes/100 WBC Auto (Unsp spec) 10.9 % Low 19-41 [facility] BUN/creatinine ratioOrdered By: Remus Keegan on 02-15-2025 Urea nitrogen/Creatinine [Mass ratio] 23.1 mg/mg High 10-20 [facility] Basic Metabolic Profile (BMP )on 02-15-2025 BUN/CRE 23.1 RATIO High 10-20 [facility] Comment on above: Performed By: #### L 500.2500, L503.7505, L501.4021, L100.0100 ####[facility] [address] [place], [address] Calcium [Mass/Vol] 10.7 mg/dL Normal 7.6-11.0 [facility] Comment on above: Performed By: #### L 500.2500, L503.7505, L501.4021, L100.0100 ####[facility] [address] [place], [address] Chloride [Moles/Vol] 98 mmol/L Normal 98-108 [facility] Comment on above: Performed By: #### L 500.2500, L503.7505, L501.4021, L100.0100 ####[facility] [address] [place], [address] CO2 [Moles/Vol] 30.9 mmol/L Normal 21.0-32.0 [facility] Comment on above: Performed By: #### L 500.2500, L503.7505, L501.4021, L100.0100 ####[facility] [address] [place], [address] Creatinine [Mass/Vol] 1.04 mg/dL Normal 0.70-1.20 [facility] Comment on above: Performed By: #### L 500.2500, L503.7505, L501.4021, L100.0100 ####[facility] [address] [place], [address] ECRCL 41.98 ml/min Low 50-250 [facility] Comment on above: Performed By: #### L 500.2500, L503.7505, L501.4021, L100.0100 ####[facility] [address] [place], [address] GAP 9 Normal 5-15 [facility] Comment on above: Performed By: #### L 500.2500, L503.7505, L501.4021, L100.0100 ####[facility] [address] [place], [address] GFR/1.73 sq M.predicted among non-blacks MDRD (S/P/Bld) [Vol rate/Area] 54 mL/min/{1.73_m2} Low >60 [facility] Comment on above: Result Comment: mL/m in/1.73m2 CKD-EPI Creatinine Equation (2020) Performed By: #### L 500.2500, L503.7505, L501.4021, L100.0100 ####[facility] [address] [place], [address] Glucose [Mass/Vol] 97 mg/dL Normal 70-99 [facility] Comment on above: Performed By: #### L 500.2500, L503.7505, L501.4021, L100.0100 ####[facility] [address] [place], [address] Potassium [Moles/Vol] 4.3 mmol/L Normal 3.3-5.1 [facility] Comment on above: Performed By: #### L 500.2500, L503.7505, L501.4021, L100.0100 ####[facility] [address] [place], [address] Sodium [Moles/Vol] 138 mmol/L Normal 133-145 [facility] Comment on above: Performed By: #### L 500.2500, L503.7505, L501.4021, L100.0100 ####[facility] [address] [place], [address] Urea nitrogen [Mass/Vol] 24 mg/dL High 4-19 [facility] Comment on above: Performed By: #### L 500.2500, L503.7505, L501.4021, L100.0100 ####[facility] [address] [place], [address] Basophil percentageOrdered B y: Remus Ungur on 02-15-2025 Basophils/100 WBC (Bld) 0.1 % 0-1 [facility] Bedside Glucoseon 02-15-2025 FINGERSTICK GLU 152 mg/dL High 74-106 [facility] Comment on above: Result Comment: KATARINA GEMENT OF PATIENT CARE PER NURSING PROTOCOL Performed By: #### L 501.080 ####[facility] [address] [place], [address] FINGERSTICK GLU 80 mg/dL Normal 74-106 [facility] Comment on above: Result Comment: KATARINA GEMENT OF PATIENT CARE PER NURSING PROTOCOL Performed By: #### L 501.080 ####[facility] [address] [place], [address] CBC W/Diff, Automatedon - Absolute Lymph 0.98 X10 3/uL Normal 0.83-4.51 [facility] Comment on above: Performed By: #### L 500.2500, L503.7505, L501.4021, L100.0100 ####[facility] [address] [place], [address] Absolute Neut 7.5 X10 3/uL Normal 2.0-7.7 [facility] Comment on above: Performed By: #### L 500.2500, L503.7505, L501.4021, L100.0100 ####[facility] [address] [place], [address] Basophils/100 WBC (Bld) 0.1 % Normal 0-1 [facility] Comment on above: Performed By: #### L 500.2500, L503.7505, L501.4021, L100.0100 ####[facility] [address] [place], [address] Eosinophils/100 WBC (Bld) 0.7 % Normal 0-5 [facility] Comment on above: Performed By: #### L 500.2500, L503.7505, L501.4021, L100.0100 ####[facility] [address] [place], [address] Erythrocyte distribution width (RBC) [Ratio] 16.2 % High 11.6-14.6 [facility] Comment on above: Performed By: #### L 500.2500, L503.7505, L501.4021, L100.0100 ####[facility] [address] [place], [address] Hematocrit (Bld) [Volume fraction] 33.5 % Low 37-47 [facility] Comment on above: Performed By: #### L 500.2500, L503.7505, L501.4021, L100.0100 ####[facility] [address] [place], [address] Hemoglobin (Bld) [Mass/Vol] 10.1 g/dL Low 12.0-15.0 [facility] Comment on above: Performed By: #### L 500.2500, L503.7505, L501.4021, L100.0100 ####[facility] [address] [place], [address] IG% 1.000 High 0.0-0.9 [facility] Comment on above: Result Comment: IG% - Immature Granulocytes (promyelocytes, myelocytes andmetamyelocytes) > 1% indicates that a LEFT SHIFT is Present. Performed By: #### L 500.2500, L503.7505, L501.4021, L100.0100 ####[facility] [address] [place], [address] Lymphocytes/100 WBC (Bld) 10.9 % Low 19-41 [facility] Comment on above: Performed By: #### L 500.2500, L503.7505, L501.4021, L100.0100 ####[facility] [address] [place], [address] MCH (RBC) [Entitic mass] 27.0 pg Normal 27.0-32.0 [facility] Comment on above: Performed By: #### L 500.2500, L503.7505, L501.4021, L100.0100 ####[facility] [address] [place], [address] MCHC (RBC) [Mass/Vol] 30.1 g/dL Low 32-36 [facility] Comment on above: Performed By: #### L 500.2500, L503.7505, L501.4021, L100.0100 ####[facility] [address] [place], [address] MCV (RBC) [Entitic vol] 89.6 fL Normal 81-99 [facility] Comment on above: Performed By: #### L 500.2500, L503.7505, L501.4021, L100.0100 ####[facility] [address] [place], [address] Monocytes/100 WBC (Bld) 4.8 % Normal 0-10 [facility] Comment on above: Performed By: #### L 500.2500, L503.7505, L501.4021, L100.0100 ####[facility] [address] [place], [address] Neutrophils/100 WBC (Bld) 82.5 % High 47-70 [facility] Comment on above: Performed By: #### L 500.2500, L503.7505, L501.4021, L100.0100 ####[facility] [address] [place], [address] Nucleated RBC (Bld) [#/Vol] 0 10*3/uL Normal 0-5 [facility] Comment on above: Performed By: #### L 500.2500, L503.7505, L501.4021, L100.0100 ####[facility] [address] [place], [address] Platelet mean volume (Bld) [Entitic vol] 10.4 fL Normal 6.2-12.0 [facility] Comment on above: Performed By: #### L 500.2500, L503.7505, L501.4021, L100.0100 ####[facility] [address] [place], [address] Platelets (Bld) [#/Vol] 243 10*3/uL Normal 150-450 [facility] Comment on above: Performed By: #### L 500.2500, L503.7505, L501.4021, L100.0100 ####[facility] [address] [place], [address] RBC (Bld) [#/Vol] 3.74 10*6/uL Low 4.2-5.4 [facility] Comment on above: Performed By: #### L 500.2500, L503.7505, L501.4021, L100.0100 ####[facility] [address] [place], [address] RDW SD 52.9 fl High 35.1-43.9 [facility] Comment on above: Performed By: #### L 500.2500, L503.7505, L501.4021, L100.0100 ####[facility] [address] [place], [address] WBC (Bld) [#/Vol] 9.0 10*3/uL Normal 4.4-11.0 [facility] Comment on above: Performed By: #### L 500.2500, L503.7505, L501.4021, L100.0100 ####[facility] [address] [place], [address] Carbon dioxide, total [Moles /volume] in Central venous bloodOrdered By: Robert Allison on 02-15-2025 CO2 [Moles/Vol] 30.9 mmol/L 21.0-32.0 [facility] Chest 1 View (Portable)on Chest 1 View (Portable) Normal [facility] Chloride assayOrdered By: Ester Allison on 02-15-2025 Chloride [Moles/Vol] 98 mmol/L 98-108 [facility] Emergency Department Summary on 02-15-2025 Emergency Department Summary Normal [facility] Eosinophil percentageOrdered By: Robert Allison on 02-15-2025 Eosinophils/100 WBC (Bld) 0.7 % 0-5 [facility] Erythrocyte distribution wid th ratioOrdered By: Robert Allison on 02-15-2025 Erythrocyte distribution width (RBC) [Ratio] 16.2 % High 11.6-14.6 [facility] Erythrocyte distribution wid th standard deviationOrdered By: Robert Allison on 02-15-2025 Erythrocyte distribution width (RBC) [Ratio] 52.9 fl High 35.1-43.9 [facility] Glomerular filtration rate ( GFR) estimation/1.73 sq m using serum, plasma, or whole bOrdered By: Robert Allison on 02-15-2025 GFR/1.73 sq M.predicted among non-blacks MDRD (S/P/Bld) [Vol rate/Area] 54 mL/min/{1.73_m2} Low >60 [facility] H AND P Exam - Hospitaliston 02-15-2025 H&P Exam - Hospitalist Normal [facility] Hematocrit Auto (Bld) [Volum e fraction]Ordered By: Robert Allison on 02-15-2025 Hematocrit (Bld) [Volume fraction] 33.5 % Low 37-47 [facility] Hemoglobin measurementOrdere d By: Robert Allison on 02-15-2025 Hemoglobin (Bld) [Mass/Vol] 10.1 g/dL Low 12.0-15.0 [facility] Immature granulocytes/100 WB C Auto (Bld)Ordered By: Robert Allison on 02-15-2025 Immature granulocytes/100 WBC (Bld) 1.000 % High 0.0-0.9 [facility] L499.0042on 02-15-2025 Trop T High Sen 113 ng/L Invalid Interpretation Code <=14 [facility] Comment on above: Result Comment: Crit ical Result(s) Called at: 02/15/2025-13:14 by: Pat Smiley.??Results read back by same. Performed By: #### L 499.0042 ####[facility] [address] [place], [address] L499.0043on 02-15-2025 Trop T High Sen 114 ng/L Invalid Interpretation Code <=14 [facility] Comment on above: Result Comment: Hemo lysis present, Results??could be affected.??CRIT CALLED BY ARCHIE MIXON TO JESSICA MOE AT 1607Critical Result(s) Called at: by:??Results read back bysame. Performed By: #### L 499.0043 ####[facility] [address] [place], [address] L501.4021on 02-15-2025 Trop T High Sen 117 ng/L Invalid Interpretation Code <=14 [facility] Comment on above: Result Comment: Crit ical Result(s) Called at:02/15/2025-11:47 by: Pat to Quin Lopez.??Results read back by same. Performed By: #### L 500.2500, L503.7505, L501.4021, L100.0100 ####[facility] [address] [place], [address] L503.7505on 02-15-2025 Natriuretic peptide B (Bld) [Mass/Vol] 4408 pg/mL High <=1800 [facility] Comment on above: Result Comment: Hear t Failure Unlikely: < 300 pg/mLHeart Failure Likely< 50 Years: > 450 pg/mL50-75 Years: > 900 pg/mL>75 Years: > 1800 pg/mL Performed By: #### L 500.2500, L503.7505, L501.4021, L100.0100 ####[facility] [address] [place], [address] L509.7001on 02-15-2025 Procalcitonin 0.27 ng/mL High <=0.10 [facility] Comment on above: Result Comment: Inte rpretation:<0.10-0.25 ng/mL: Antibiotic therapy discouraged. Bacterialinfection unlikely.0.25-0.50 ng/mL: Antibiotic therapy encouraged. Bacterialinfection possible.>0.50 ng/mL: Antibiotic therapy strongly encouraged.Suggestive of presence of bacterial infection.PCT should always be interpreted in the clinical context ofthe patient. Therefore, clinicians should use the PCTresults in conjunction with other laboratory findings andclinical signs of the patient. Performed By: #### L 509.7001 ####[facility] [address] [place], [address] MCV (mean corpuscular volume ) determinationOrdered By: Robert Allison on 02-15-2025 MCV (RBC) [Entitic vol] 89.6 fL 81-99 [facility] Mean corpuscular hemoglobin (MCH) determinationOrdered By: Robert Allison on 02-15-2025 MCH (RBC) [Entitic mass] 27.0 pg 27.0-32.0 [facility] Monocyte percentageOrdered B y: Robert Allison on 02-15-2025 Monocytes/100 WBC (Bld) 4.8 % 0-10 [facility] Natriuretic peptide.B prohor hayley N-Terminal [Mass/volume] in Serum or PlasmaOrdered By: Robert Allison on 02-15-2025 Natriuretic peptide.B prohormone N-Terminal [Mass/Vol] 4408 pg/mL High <1800 [facility] Neutrophil percentageOrdered By: Robert Allison on 02-15-2025 Neutrophils/100 WBC (Bld) 82.5 % High 47-70 [facility] Platelet countOrdered By: Ester Allison on 02-15-2025 Platelets (Bld) [#/Vol] 243 10*3/uL 150-450 [facility] Potassium measurement (mass/ volume)Ordered By: Robert Allison on 02-15-2025 Potassium (Unsp spec) [Mass/Vol] 4.3 mmol/L 3.3-5.1 [facility] Procalcitonin [Mass/volume] in Serum or Plasma by ImmunoassayOrdered By: Nestor Bartlett on 02-15-2025 Procalcitonin IA [Mass/Vol] 0.27 ng/mL High <0.11 [facility] RBC Auto (Bld) [#/Vol]Ordere d By: Robert Allison on 02-15-2025 RBC (Bld) [#/Vol] 3.74 10*6/uL Low 4.2-5.4 [facility] Serum creatinine measurement (mass/volume)Ordered By: Robert Allison on 02-15-2025 Creatinine [Mass/Vol] 1.04 mg/dL 0.70-1.20 [facility] Serum glucose measurement (m ass/volume)Ordered By: Robert Allison on 02-15-2025 Glucose [Mass/Vol] 97 mg/dL 70-99 [facility] Serum or plasma calcium melanie urement (mass/volume)Ordered By: Robert Allison on 02-15-2025 Calcium [Mass/Vol] 10.7 mg/dL 7.6-11.0 [facility] Serum or plasma urea nitroge n measurement (mass/volume)Ordered By: Robert Allison on 02-15-2025 Urea nitrogen [Mass/Vol] 24 mg/dL High 4-19 [facility] Sodium levelOrdered By: Lorena Allison on 02-15-2025 Sodium [Moles/Vol] 138 mmol/L 133-145 [facility] Troponin T.cardiac [Mass/vol ume] in Serum or Plasma by High sensitivity methodOrdered By: Robert Allison on 02-15-2025 Troponin T.cardiac High sensitivity method [Mass/Vol] 114 ng/L High <14 [facility] Troponin T.cardiac High sensitivity method [Mass/Vol] 113 ng/L High <14 [facility] Troponin T.cardiac High sensitivity method [Mass/Vol] 117 ng/L High <14 [facility] White blood cell (WBC) count Ordered By: Robert Allison on 02-15-2025 WBC (Bld) [#/Vol] 9.0 10*3/uL 4.4-11.0 [facility] Bedside Glucoseon 02-13-2025 FINGERSTICK GLU 337 mg/dL High 74-106 [facility] Comment on above: Result Comment: KATARINA GEMENT OF PATIENT CARE PER NURSING PROTOCOL Performed By: #### L 501.080 ####[facility] [address] [place], [address] FINGERSTICK GLU 302 mg/dL High 74-106 [facility] Comment on above: Result Comment: KATARINA GEMENT OF PATIENT CARE PER NURSING PROTOCOL Performed By: #### L 501.080 ####[facility] [address] [place], [address] Discharge Instructionon 01-29 Discharge Instruction [facility] Gl[facility] measurement at [facility] deOrdered By: Lucio Borden on 02-13-2025 Glucose [Mass/Vol] 337 mg/dL High 74-106 [facility] Bedside Glucoseon 02-12-2025 FINGERSTICK GLU 236 mg/dL High -106 [facility] Comment on above: Result Comment: KATARINA GEMENT OF PATIENT CARE PER NURSING PROTOCOL Performed By: #### L 501.080 ####[facility] [address] [place], [address] FINGERSTICK GLU 112 mg/dL High -[address] [place] [address] Comment on above: Result Comment: KATARINA GEMENT OF PATIENT CARE PER NURSING PROTOCOL Performed By: #### L 501.080 ####[facility] [address] [place], [address] FINGERSTICK GLU 471 mg/dL Invalid Interpretation Code [address] [place] [address] Comment on above: Result Comment: Dr Carina javier FollowedMANAGEMENT OF PATIENT CARE PER NURSING PROTOCOL Performed By: #### L 501.080 ####[facility] [address] [place], [address] FINGERSTICK GLU 492 mg/dL Invalid Interpretation Code [address] [place] [address] Comment on above: Result Comment: Repe at TestMANAGEMENT OF PATIENT CARE PER NURSING PROTOCOL Performed By: #### L 501.080 ####[facility] [address] [place], [address] FINGERSTICK GLU 243 mg/dL High 74-106 [facility] Comment on above: Result Comment: KATARINA GEMENT OF PATIENT CARE PER NURSING PROTOCOL Performed By: #### L 501.080 ####[facility] [address] [place], [address] FINGERSTICK GLU 312 mg/dL High [facility]106 [facility] Comment on above: Result Comment: KATARINA GEMENT OF PATIENT CARE PER NURSING PROTOCOL Performed By: #### L 501.080 ####[facility] [address] [facility] [address] FINGERSTICK GLU 246 mg/dL High [address] [place] [address] Comment on above: Result Comment: KATARINA GEMENT OF PATIENT CARE PER NURSING PROTOCOL Performed By: #### L 501.080 ####[facility] [address] [place], [address] Bedside Glucoseon 02-11-2025 FINGERSTICK GLU 276 mg/dL High [address] [place] [address] Comment on above: Result Comment: KATARINA GEMENT OF PATIENT CARE PER NURSING PROTOCOL Performed By: #### L 501.080 ####[facility] [address] [place], [address] FINGERSTICK GLU 124 mg/dL High [address] [place] [address] Comment on above: Result Comment: KATARINA GEMENT OF PATIENT CARE PER NURSING PROTOCOL Performed By: #### L 501.080 ####[facility] [address] [place], [address] FINGERSTICK GLU 257 mg/dL High [address] [place] [address] Comment on above: Result Comment: KATARINA GEMENT OF PATIENT CARE PER NURSING PROTOCOL Performed By: #### L 501.080 ####[facility] [address] [place], [address] FINGERSTICK GLU 305 mg/dL High [address] [place] [address] Comment on above: Result Comment: KATARINA GEMENT OF PATIENT CARE PER NURSING PROTOCOL Performed By: #### L 501.080 ####[facility] [address] [place], [address] FINGERSTICK GLU 242 mg/dL High 74-106 [facility] Comment on above: Result Comment: KATARINA GEMENT OF PATIENT CARE PER NURSING PROTOCOL Performed By: #### L 501.080 ####[facility] [address] [place], [address] FINGERSTICK GLU 206 mg/dL High 74-106 [facility] Comment on above: Result Comment: KATARINA GEMENT OF PATIENT CARE PER NURSING PROTOCOL Performed By: #### L 501.080 ####[facility] [address] [place], [address] Anion gap in Serum or Plasma Ordered By: Lucio Borden on 02-10-2025 Anion gap [Moles/Vol] 14 mmol/L 5-15 [facility] BUN/creatinine ratioOrdered By: Lucio Borden on 02-10-2025 Urea nitrogen/Creatinine [Mass ratio] 20.8 mg/mg High 10-20 [facility] Basic Metabolic Profile (BMP )on 02-10-2025 BUN/CRE 20.8 RATIO High 10-20 [facility] Comment on above: Performed By: #### L 500.2500 ####[facility] [address] [place], [address] Calcium [Mass/Vol] 10.0 mg/dL Normal 7.6-11.0 [facility] Comment on above: Performed By: #### L 500.2500 ####[facility] [address] [place], [address] Chloride [Moles/Vol] 98 mmol/L Normal 98-108 [facility] Comment on above: Performed By: #### L 500.2500 ####[facility] [address] [place], [address] CO2 [Moles/Vol] 26.8 mmol/L Normal 21.0-32.0 [facility] Comment on above: Performed By: #### L 500.2500 ####[facility] [address] [place], [address] Creatinine [Mass/Vol] 1.10 mg/dL Normal 0.70-1.20 [facility] Comment on above: Performed By: #### L 500.2500 ####[facility] [address] [place], [address] ECRCL 39.32 ml/min Low 50-250 [facility] Comment on above: Performed By: #### L 500.2500 ####[facility] [address] [place], [address] GAP 14 Normal 5-15 [facility] Comment on above: Performed By: #### L 500.2500 ####[facility] [address] [place], [address] GFR/1.73 sq M.predicted among non-blacks MDRD (S/P/Bld) [Vol rate/Area] 50 mL/min/{1.73_m2} Low >60 [facility] Comment on above: Result Comment: mL/m in/1.73m2 CKD-EPI Creatinine Equation (2020) Performed By: #### L 500.2500 ####[facility] [address] [place], [address] Glucose [Mass/Vol] 361 mg/dL High 70-99 [facility] Comment on above: Performed By: #### L 500.2500 ####[facility] [address] [place], [address] Potassium [Moles/Vol] 4.9 mmol/L Normal 3.3-5.1 [facility] Comment on above: Performed By: #### L 500.2500 ####[facility] [address] [place], [address] Sodium [Moles/Vol] 139 mmol/L Normal 133-145 [facility] Comment on above: Performed By: #### L 500.2500 ####[facility] [address] [place], [address] Urea nitrogen [Mass/Vol] 23 mg/dL High 4-19 [facility] Comment on above: Performed By: #### L 500.2500 ####[facility] [address] [place], [address] Bedside Glucoseon 02-10-2025 FINGERSTICK GLU 167 mg/dL High 74-106 [facility] Comment on above: Result Comment: KATARINA GEMENT OF PATIENT CARE PER NURSING PROTOCOL Performed By: #### L 501.080 ####[facility] [address] [place], [address] FINGERSTICK GLU 78 mg/dL Normal 74-106 [facility] Comment on above: Result Comment: KATARINA GEMENT OF PATIENT CARE PER NURSING PROTOCOL Performed By: #### L 501.080 ####[facility] [address] [place], [address] FINGERSTICK GLU 64 mg/dL Low 74-106 [facility] Comment on above: Result Comment: KATARINA GEMENT OF PATIENT CARE PER NURSING PROTOCOL Performed By: #### L 501.080 ####[facility] [address] [place], [address] FINGERSTICK GLU 222 mg/dL High 74-106 [facility] Comment on above: Result Comment: KATARINA GEMENT OF PATIENT CARE PER NURSING PROTOCOL Performed By: #### L 501.080 ####[facility] [address] [place], [address] Carbon dioxide, total [Moles /volume] in Central venous bloodOrdered By: Lucio Borden on 02-10-2025 CO2 [Moles/Vol] 26.8 mmol/L 21.0-32.0 [facility] Chloride assayOrdered By: Chen Borden on 02-10-2025 Chloride [Moles/Vol] 98 mmol/L 98-108 [facility] Glomerular filtration rate ( GFR) estimation/1.73 sq m using serum, plasma, or whole bOrdered By: Lucio Borden on 02-10-2025 GFR/1.73 sq M.predicted among non-blacks MDRD (S/P/Bld) [Vol rate/Area] 50 mL/min/{1.73_m2} Low >60 [facility] Potassium measurement (mass/ volume)Ordered By: Lucio Borden on 02-10-2025 Potassium (Unsp spec) [Mass/Vol] 4.9 mmol/L 3.3-5.1 [facility] RESPIRATORY PANEL MOLECULARo n 02-10-2025 RP PANEL Normal [facility] Comment on above: Performed By: #### M 100.638 ####[facility] [address] [place], [address] Serum creatinine measurement (mass/volume)Ordered By: Lucio Borden on 02-10-2025 Creatinine [Mass/Vol] 1.10 mg/dL 0.70-1.20 [facility] Serum glucose measurement (m ass/volume)Ordered By: Lucio Borden on 02-10-2025 Glucose [Mass/Vol] 361 mg/dL High 70-99 [facility] Serum or plasma calcium melanie urement (mass/volume)Ordered By: Lucio Borden on 02-10-2025 Calcium [Mass/Vol] 10.0 mg/dL 7.6-11.0 [facility] Serum or plasma urea nitroge n measurement (mass/volume)Ordered By: Lucio Borden on 02-10-2025 Urea nitrogen [Mass/Vol] 23 mg/dL High 4-19 [facility] Sodium levelOrdered By: Lucio Borden on 02-10-2025 Sodium [Moles/Vol] 139 mmol/L 133-145 [facility] Absolute lymphocyte countOrd ered By: Jeremiah Corrales on 02-09-2025 Lymphocytes Auto (Unsp spec) [#/Vol] 0.69 10*3/uL Low 0.83-4.51 [facility] Anion gap in Serum or Plasma Ordered By: Jeremiah Corrales on 02-09-2025 Anion gap [Moles/Vol] 12 mmol/L 5-15 [facility] Automated lymphocyte count a s percentage of total leukocytesOrdered By: Jeremiah Corrales on 02-09-2025 Lymphocytes/100 WBC Auto (Unsp spec) 7.3 % Low 19-41 [facility] BUN/creatinine ratioOrdered By: Jeremiah Corrales on 02-09-2025 Urea nitrogen/Creatinine [Mass ratio] 20.2 mg/mg High 10-20 [facility] Basic Metabolic Profile (BMP )on 02-09-2025 BUN/CRE 20.2 RATIO High - [facility] Comment on above: Performed By: #### L 501.4021, L500.2500, L100.0100 ####[facility] [address] [place], [address] Calcium [Mass/Vol] 10.2 mg/dL Normal 7.6-11.0 [facility] Comment on above: Performed By: #### L 501.4021, L500.2500, L100.0100 ####[facility] [address] [place], [address] Chloride [Moles/Vol] 98 mmol/L Normal 98-108 [facility] Comment on above: Performed By: #### L 501.4021, L500.2500, L100.0100 ####[facility] [address] [place], [address] CO2 [Moles/Vol] 29.9 mmol/L Normal 21.0-32.0 [facility] Comment on above: Performed By: #### L 501.4021, L500.2500, L100.0100 ####[facility] [address] [place], [address] Creatinine [Mass/Vol] 1.16 mg/dL Normal 0.70-1.20 [facility] Comment on above: Performed By: #### L 501.4021, L500.2500, L100.0100 ####[facility] [address] [place], [address] ECRCL 37.42 ml/min Low 50-250 [facility] Comment on above: Performed By: #### L 501.4021, L500.2500, L100.0100 ####[facility] [address] [place], [address] GAP 12 Normal 5-15 [facility] Comment on above: Performed By: #### L 501.4021, L500.2500, L100.0100 ####[facility] [address] [place], [address] GFR/1.73 sq M.predicted among non-blacks MDRD (S/P/Bld) [Vol rate/Area] 47 mL/min/{1.73_m2} Low >60 [facility] Comment on above: Result Comment: mL/m in/1.73m2 CKD-EPI Creatinine Equation (2020) Performed By: #### L 501.4021, L500.2500, L100.0100 ####[facility] [address] [place], [address] Glucose [Mass/Vol] 173 mg/dL High 70-99 [facility] Comment on above: Performed By: #### L 501.4021, L500.2500, L100.0100 ####[facility] [address] [place], [address] Potassium [Moles/Vol] 4.3 mmol/L Normal 3.3-5.1 [facility] Comment on above: Performed By: #### L 501.4021, L500.2500, L100.0100 ####[facility] [address] [place], [address] Sodium [Moles/Vol] 140 mmol/L Normal 133-145 [facility] Comment on above: Performed By: #### L 501.4021, L500.2500, L100.0100 ####[facility] [address] [place], [address] Urea nitrogen [Mass/Vol] 23 mg/dL High 4-19 [facility] Comment on above: Performed By: #### L 501.4021, L500.2500, L100.0100 ####[facility] [address] [place], [address] Basophil percentageOrdered B y: Jeremiah Corrales on 02-09-2025 Basophils/100 WBC (Bld) 0.4 % 0-1 [facility] Bedside Glucoseon 02-09-2025 FINGERSTICK GLU 401 mg/dL High 74-106 [facility] Comment on above: Result Comment: KATARINA GEMENT OF PATIENT CARE PER NURSING PROTOCOL Performed By: #### L 501.080 ####[facility] [address] [place], [address] FINGERSTICK GLU 248 mg/dL High 74-106 [facility] Comment on above: Result Comment: KATARINA GEMENT OF PATIENT CARE PER NURSING PROTOCOL Performed By: #### L 501.080 ####[facility] [address] [place], [address] CBC W/Diff, Automatedon 01-29 PLT EST ADEQUATE Normal ADEQ [facility] Comment on above: Performed By: #### L 501.4021, L500.2500, L100.0100 ####[facility] [address] [place], [address] Carbon dioxide, total [Moles /volume] in Central venous bloodOrdered By: Jeremiah Corrales on 02-09-2025 CO2 [Moles/Vol] 29.9 mmol/L 21.0-32.0 [facility] Chest PA and Lateralon 02-09 Chest PA and Lateral Normal [facility] Chloride assayOrdered By: Enio Corrales on 02-09-2025 Chloride [Moles/Vol] 98 mmol/L 98-108 [facility] Emergency Department Summary on 02-09-2025 Emergency Department Summary Normal [facility] Eosinophil percentageOrdered By: Jeremiah Corrales on 02-09-2025 Eosinophils/100 WBC (Bld) 0.1 % 0-5 [facility] Erythrocyte distribution wid th ratioOrdered By: Jeremiah Corrales on 02-09-2025 Erythrocyte distribution width (RBC) [Ratio] 15.8 % High 11.6-14.6 [facility] Erythrocyte distribution wid th standard deviationOrdered By: Jeremiah Corrales on 02-09-2025 Erythrocyte distribution width (RBC) [Ratio] 51.3 fl High 35.1-43.9 [facility] Glomerular filtration rate ( GFR) estimation/1.73 sq m using serum, plasma, or whole bOrdered By: Jeremiah Corrales on 02-09-2025 GFR/1.73 sq M.predicted among non-blacks MDRD (S/P/Bld) [Vol rate/Area] 47 mL/min/{1.73_m2} Low >60 [facility] H AND P Exam - Hospital[place] 02-09-2025 H&P Exam - Hospitalist Normal [facility] Hematocrit Auto (Bld) [Volum e fraction]Ordered By: Jeremiah Corrales on 02-09-2025 Hematocrit (Bld) [Volume fraction] 37.9 % 37-47 [facility] Hemoglobin measurementOrdere d By: Jeremiah Corrales on 02-09-2025 Hemoglobin (Bld) [Mass/Vol] 11.5 g/dL Low 12.0-15.0 [facility] Immature granulocytes/100 WB C Auto (Bld)Ordered By: Jeremiah Corrales on 02-09-2025 Immature granulocytes/100 WBC (Bld) 0.800 % 0.0-0.9 [facility] L499.0042on 02-09-2025 Trop T High Sen 119 ng/L Invalid Interpretation Code <=14 [facility] Comment on above: Result Comment: Crit ical Result(s) Called VANE GRAVES at: 1520 by:VIET??Results read back by same. Performed By: #### L 499.0042 ####[facility] [address] [place], [address] L501.4021on 02-09-2025 Trop T High Sen 122 ng/L Invalid Interpretation Code <=14 [facility] Comment on above: Result Comment: Crit ical Result(s) Called at 1330: by: SHARONA ROWELL. ??Results read back by same. Performed By: #### L 501.4021, L500.2500, L100.0100 ####[facility] [address] [place], [address] L503.7505on 02-09-2025 Natriuretic peptide B (Bld) [Mass/Vol] 9616 pg/mL High <=1800 [facility] Comment on above: Result Comment: Hear t Failure Unlikely: < 300 pg/mLHeart Failure Likely< 50 Years: > 450 pg/mL50-75 Years: > 900 pg/mL>75 Years: > 1800 pg/mL Performed By: #### L 503.7502 ####[facility] [address] [facility] [place], [place], [address] MCV (mean corpuscular volume ) determinationOrdered By: Jeremiah Corrales on 02-09-2025 MCV (RBC) [Entitic vol] 89.8 fL 81-99 [facility] Mean corpuscular hemoglobin (MCH) determinationOrdered By: Jeremiah Corrales on 02-09-2025 MCH (RBC) [Entitic mass] 27.3 pg 27.0-32.0 [facility] Monocyte percentageOrdered B y: Jeremiah Corrales on 02-09-2025 Monocytes/100 WBC (Bld) 4.5 % 0-10 [facility] Natriuretic peptide.B prohor hayley N-Terminal [Mass/volume] in Serum or PlasmaOrdered By: Jeremiah Corrales on 02-09-2025 Natriuretic peptide.B prohormone N-Terminal [Mass/Vol] 9616 pg/mL High <1800 [facility] Neutrophil percentageOrdered By: Jeremiah Corrales on 02-09-2025 Neutrophils/100 WBC (Bld) 86.9 % High 47-70 [facility] Platelet countOrdered By: Enio Corrales on 02-09-2025 Platelet count TNP [facility] Platelet estimateOrdered By: Jeremiah Corrales on 02-09-2025 Platelets LM Ql (Bld) ADEQUATE ADEQ [facility] Potassium measurement (mass/ volume)Ordered By: Jeremiah Corrales on 02-09-2025 Potassium (Unsp spec) [Mass/Vol] 4.3 mmol/L 3.3-5.1 [facility] RBC Auto (Bld) [#/Vol]Ordere d By: Jeremiah Corrales on 02-09-2025 RBC (Bld) [#/Vol] 4.22 10*6/uL 4.2-5.4 [facility] Respiratory pathogens detect ion panel by molecular detection methodOrdered By: Tono Gomez on 02-09-2025 Respiratory pathogens DNA and RNA panel BEBETO+probe (Resp) Parainfluenza 3 Abnormal [facility] Serum creatinine measurement (mass/volume)Ordered By: Jeremiah Corrales on 02-09-2025 Creatinine [Mass/Vol] 1.16 mg/dL 0.70-1.20 [facility] Serum glucose measurement (m ass/volume)Ordered By: Jeremiah Corrales on 02-09-2025 Glucose [Mass/Vol] 173 mg/dL High 70-99 [facility] Serum or plasma calcium melanie urement (mass/volume)Ordered By: Jeremiah Corrales on 02-09-2025 Calcium [Mass/Vol] 10.2 mg/dL 7.6-11.0 [facility] Serum or plasma urea nitroge n measurement (mass/volume)Ordered By: Jeremiah Corrales on 02-09-2025 Urea nitrogen [Mass/Vol] 23 mg/dL High 4-19 [facility] Sodium levelOrdered By: Jeremiah Corrales on 02-09-2025 Sodium [Moles/Vol] 140 mmol/L 133-145 [facility] Troponin T.cardiac [Mass/vol ume] in Serum or Plasma by High sensitivity methodOrdered By: Jeremiah Corrales on 02-09-2025 Troponin T.cardiac High sensitivity method [Mass/Vol] 119 ng/L High <14 [facility] Troponin T.cardiac High sensitivity method [Mass/Vol] 122 ng/L High <14 [facility] White blood cell (WBC) count Ordered By: Jeremiah Corrales on 02-09-2025 WBC (Bld) [#/Vol] 9.4 10*3/uL 4.4-11.0 [facility] Absolute lymphocyte countOrd ered By: Ramone Smiley on 02-07-2025 Lymphocytes Auto (Unsp spec) [#/Vol] 0.84 10*3/uL 0.83-4.51 [facility] Anion gap in Serum or Plasma Ordered By: Ramone Smiley on 02-07-2025 Anion gap [Moles/Vol] 12 mmol/L 5- [facility] Automated lymphocyte count a s percentage of total leukocytesOrdered By: Ramone Smiley on 02-07-2025 Lymphocytes/100 WBC Auto (Unsp spec) 7.3 % Low - [facility] BUN/creatinine ratioOrdered By: Ramone Smiley on 02-07-2025 Urea nitrogen/Creatinine [Mass ratio] 17.7 mg/mg 06-19 [facility] Basophil percentageOrdered B y: Ramone Smiley on 02-07-2025 Basophils/100 WBC (Bld) 0.1 % 0-1 [facility] Bilirubin, totalOrdered By: Ramone Smiley on 02-07-2025 Bilirubin [Mass/Vol] 0.25 mg/dL 0.00-1.30 [facility] CBC W/Diff, Automatedon 01-29 Absolute Lymph 0.84 X10 3/uL Normal 0.83-4.51 [facility] Comment on above: Order Comment: Order Date: 02/07/25Order Info: 0184-1 - CBCD Performed By: #### L 100.0100, L500.4050 ####[facility] [address] [place], [address] Absolute Neut 10.0 X10 3/uL High 2.0-7.7 [facility] Comment on above: Order Comment: Order Date: 02/07/25Order Info: 0184-1 - CBCD Performed By: #### L 100.0100, L500.4050 ####[facility] [address] [place], [address] Basophils/100 WBC (Bld) 0.1 % Normal 0-1 [facility] Comment on above: Order Comment: Order Date: 02/07/25Order Info: 0184-1 - CBCD Performed By: #### L 100.0100, L500.4050 ####[facility] [address] [place], [address] Eosinophils/100 WBC (Bld) 0.0 % Normal 0-5 [facility] Comment on above: Order Comment: Order Date: 02/07/25Order Info: 0184-1 - CBCD Performed By: #### L 100.0100, L500.4050 ####[facility] [address] [place], [address] Erythrocyte distribution width (RBC) [Ratio] 15.7 % High 11.6-14.6 [facility] Comment on above: Order Comment: Order Date: 02/07/25Order Info: 0184-1 - CBCD Performed By: #### L 100.0100, L500.4050 ####[facility] [address] [place], [address] Hematocrit (Bld) [Volume fraction] 36.8 % Low 37-47 [facility] Comment on above: Order Comment: Order Date: 02/07/25Order Info: 0184-1 - CBCD Performed By: #### L 100.0100, L500.4050 ####[facility] [address] [place], [address] Hemoglobin (Bld) [Mass/Vol] 11.4 g/dL Low 12.0-15.0 [facility] Comment on above: Order Comment: Order Date: 02/07/25Order Info: 0184-1 - CBCD Performed By: #### L 100.0100, L500.4050 ####[facility] [address] [place], [address] IG% 0.400 Normal 0.0-0.9 [facility] Comment on above: Order Comment: Order Date: 02/07/25Order Info: 0184-1 - CBCD Result Comment: IG% - Immature Granulocytes (promyelocytes, myelocytes andmetamyelocytes) > 1% indicates that a LEFT SHIFT is Present. Performed By: #### L 100.0100, L500.4050 ####[facility] [address] [place], [address] Lymphocytes/100 WBC (Bld) 7.3 % Low 19-41 [facility] Comment on above: Order Comment: Order Date: 02/07/25Order Info: 0184-1 - CBCD Performed By: #### L 100.0100, L500.4050 ####[facility] [address] [place], [address] MCH (RBC) [Entitic mass] 27.9 pg Normal 27.0-32.0 [facility] Comment on above: Order Comment: Order Date: 02/07/25Order Info: 0184- - CBCD Performed By: #### L 100.0100, L500.4050 ####[facility] [address] [place], [address] MCHC (RBC) [Mass/Vol] 31.0 g/dL Low 32-36 [facility] Comment on above: Order Comment: Order Date: 02/07/25Order Info: 0184-1 - CBCD Performed By: #### L 100.0100, L500.4050 ####[facility] [address] [place], [address] MCV (RBC) [Entitic vol] 90.2 fL Normal 81-99 [facility] Comment on above: Order Comment: Order Date: 02/07/25Order Info: 0184-1 - CBCD Performed By: #### L 100.0100, L500.4050 ####[facility] [address] [place], [address] Monocytes/100 WBC (Bld) 5.2 % Normal 0-10 [facility] Comment on above: Order Comment: Order Date: 02/07/25Order Info: 0184-1 - CBCD Performed By: #### L 100.0100, L500.4050 ####[facility] [address] [place], [address] Neutrophils/100 WBC (Bld) 87.0 % High 47-70 [facility] Comment on above: Order Comment: Order Date: 02/07/25Order Info: 4-1 - CBCD Performed By: #### L 100.0100, L500.4050 ####[facility] [address] [place], [address] Nucleated RBC (Bld) [#/Vol] 0 10*3/uL Normal 0-5 [facility] Comment on above: Order Comment: Order Date: 02/07/25Order Info: 018- - CBCD Performed By: #### L 100.0100, L500.4050 ####[facility] [address] [place], [address] Platelet mean volume (Bld) [Entitic vol] 11.5 fL Normal 6.2-12.0 [facility] Comment on above: Order Comment: Order Date: 02/07/25Order Info: 018- - CBCD Performed By: #### L 100.0100, L500.4050 ####[facility] [address] [place], [address] Platelets (Bld) [#/Vol] 247 10*3/uL Normal 150-450 [facility] Comment on above: Order Comment: Order Date: 02/07/25Order Info: 0184-1 - CBCD Performed By: #### L 100.0100, L500.4050 ####[facility] [address] [place], [address] RBC (Bld) [#/Vol] 4.08 10*6/uL Low 4.2-5.4 [facility] Comment on above: Order Comment: Order Date: 02/07/25Order Info: 0184-1 - CBCD Performed By: #### L 100.0100, L500.4050 ####[facility] [address] [place], [address] RDW SD 51.8 fl High 35.1-43.9 [facility] Comment on above: Order Comment: Order Date: 02/07/25Order Info: 0184-1 - CBCD Performed By: #### L 100.0100, L500.4050 ####[facility] [address] [place], [address] WBC (Bld) [#/Vol] 11.5 10*3/uL High 4.4-11.0 [facility] Comment on above: Order Comment: Order Date: 02/07/25Order Info: 018- - CBCD Performed By: #### L 100.0100, L500.4050 ####[facility] [address] [place], [address] Carbon dioxide, total [Moles /volume] in Central venous bloodOrdered By: Ramone Smiley on 02-07-2025 CO2 [Moles/Vol] 27.9 mmol/L 21.0-32.0 [facility] Chloride assayOrdered By: Richar Smiley on 02-07-2025 Chloride [Moles/Vol] 96 mmol/L Low 98-108 [facility] Comprehensive Metabolic Prof ilon 02-07-2025 Albumin [Mass/Vol] 3.3 g/dL Low 3.4-4.8 [facility] Comment on above: Order Comment: URINE UTOOrder Date: 02/07/25Order Info: 0786-1 - CMP Performed By: #### L 100.0100, L500.4050 ####[facility] [address] [place], [address] Albumin/Globulin [Mass ratio] 1.0 {ratio} Normal 0.9-2.4 [facility] Comment on above: Order Comment: URINE UTOOrder Date: 02/07/25Order Info: 0786-1 - CMP Performed By: #### L 100.0100, L500.4050 ####[facility] [address] [place], [address] ALK PHOS 86 U/L Normal 35-104 [facility] Comment on above: Order Comment: URINE UTOOrder Date: 02/07/25Order Info: 0786-1 - CMP Performed By: #### L 100.0100, L500.4050 ####[facility] [address] [place], [address] ALT [Catalytic activity/Vol] 20 U/L Normal <=34 [facility] Comment on above: Order Comment: URINE UTOOrder Date: 02/07/25Order Info: 0786-1 - CMP Performed By: #### L 100.0100, L500.4050 ####[facility] [address] [place], [address] AST [Catalytic activity/Vol] 29 U/L Normal <=31 [facility] Comment on above: Order Comment: URINE UTOOrder Date: 02/07/25Order Info: 0786-1 - CMP Performed By: #### L 100.0100, L500.4050 ####[facility] [address] [place], [address] Bilirubin [Mass/Vol] 0.25 mg/dL Normal 0.00-1.30 [facility] Comment on above: Order Comment: URINE UTOOrder Date: 02/07/25Order Info: 0786-1 - CMP Performed By: #### L 100.0100, L500.4050 ####[facility] [address] [place], [address] BUN/CRE 17.7 RATIO Normal 10-20 [facility] Comment on above: Order Comment: URINE UTOOrder Date: 02/07/25Order Info: 0786-1 - CMP Performed By: #### L 100.0100, L500.4050 ####[facility] [address] [place], [address] Calcium [Mass/Vol] 10.2 mg/dL Normal 7.6-11.0 [facility] Comment on above: Order Comment: URINE UTOOrder Date: 02/07/25Order Info: 0786-1 - CMP Performed By: #### L 100.0100, L500.4050 ####[facility] [address] [place], [address] Chloride [Moles/Vol] 96 mmol/L Low 98-108 [facility] Comment on above: Order Comment: URINE UTOOrder Date: 02/07/25Order Info: 785-1 - CMP Performed By: #### L 100.0100, L500.4050 ####[facility] [address] [place], [address] CO2 [Moles/Vol] 27.9 mmol/L Normal 21.0-32.0 [facility] Comment on above: Order Comment: URINE UTOOrder Date: 02/07/25Order Info: 07-1 - CMP Performed By: #### L 100.0100, L500.4050 ####[facility] [address] [place], [address] Creatinine [Mass/Vol] 1.37 mg/dL High 0.70-1.20 [facility] Comment on above: Order Comment: URINE UTOOrder Date: 02/07/25Order Info: 0786-1 - CMP Performed By: #### L 100.0100, L500.4050 ####[facility] [address] [place], [address] GAP 12 Normal 5-15 [facility] Comment on above: Order Comment: URINE UTOOrder Date: 02/07/25Order Info: 0786-1 - CMP Performed By: #### L 100.0100, L500.4050 ####[facility] [address] [place], [address] GFR/1.73 sq M.predicted among non-blacks MDRD (S/P/Bld) [Vol rate/Area] 39 mL/min/{1.73_m2} Low >60 [facility] Comment on above: Order Comment: URINE UTOOrder Date: 02/07/25Order Info: 0786-1 - CMP Result Comment: mL/m in/1.73m2 CKD-EPI Creatinine Equation (2020) Performed By: #### L 100.0100, L500.4050 ####[facility] [address] [place], [address] Globulin (S) [Mass/Vol] 3.2 g/dL Normal 2.2-4.2 [facility] Comment on above: Order Comment: URINE UTOOrder Date: 02/07/25Order Info: 0786-1 - CMP Performed By: #### L 100.0100, L500.4050 ####[facility] [address] [place], [address] Glucose [Mass/Vol] 254 mg/dL High 70-99 [facility] Comment on above: Order Comment: URINE UTOOrder Date: 02/07/25Order Info: 0786-1 - CMP Performed By: #### L 100.0100, L500.4050 ####[facility] [address] [place], [address] Potassium [Moles/Vol] 5.1 mmol/L Normal 3.3-5.1 [facility] Comment on above: Order Comment: URINE UTOOrder Date: 02/07/25Order Info: 0786-1 - CMP Performed By: #### L 100.0100, L500.4050 ####[facility] [address] [place], [address] Sodium [Moles/Vol] 136 mmol/L Normal 133-145 [facility] Comment on above: Order Comment: URINE UTOOrder Date: 02/07/25Order Info: 0786-1 - CMP Performed By: #### L 100.0100, L500.4050 ####[facility] [address] [place], [address] T PROT 6.5 g/dL Normal 5.9-8.4 [facility] Comment on above: Order Comment: URINE UTOOrder Date: 02/07/25Order Info: 0786-1 - CMP Performed By: #### L 100.0100, L500.4050 ####[facility] [address] [place], [address] Urea nitrogen [Mass/Vol] 24 mg/dL High 4-19 [facility] Comment on above: Order Comment: URINE UTOOrder Date: 02/07/25Order Info: 0786- - CMP Performed By: #### L 100.0100, L500.4050 ####[facility] [address] [place], [address] Eosinophil percentageOrdered By: Ramone Smiley on 02-07-2025 Eosinophils/100 WBC (Bld) 0.0 % 0-5 [facility] Erythrocyte distribution wid th ratioOrdered By: Ramone Smiley on 02-07-2025 Erythrocyte distribution width (RBC) [Ratio] 15.7 % High 11.6-14.6 [facility] Erythrocyte distribution wid th standard deviationOrdered By: Ramone Smiley on 02-07-2025 Erythrocyte distribution width (RBC) [Ratio] 51.8 fl High 35.1-43.9 [facility] Glomerular filtration rate ( GFR) estimation/1.73 sq m using serum, plasma, or whole bOrdered By: Ramone Smiley on 02-07-2025 GFR/1.73 sq M.predicted among non-blacks MDRD (S/P/Bld) [Vol rate/Area] 39 mL/min/{1.73_m2} Low >60 [facility] Hematocrit Auto (Bld) [Volum e fraction]Ordered By: Ramone Smiley on 02-07-2025 Hematocrit (Bld) [Volume fraction] 36.8 % Low 37-47 [facility] Hemoglobin measurementOrdere d By: Ramone Smiley on 02-07-2025 Hemoglobin (Bld) [Mass/Vol] 11.4 g/dL Low 12.0-15.0 [facility] Immature granulocytes/100 WB C Auto (Bld)Ordered By: Ramone Smiley on 02-07-2025 Immature granulocytes/100 WBC (Bld) 0.400 % 0.0-0.9 [facility] MCV (mean corpuscular volume ) determinationOrdered By: Ramone Smiley on 02-07-2025 MCV (RBC) [Entitic vol] 90.2 fL 81-99 [facility] Mean corpuscular hemoglobin (MCH) determinationOrdered By: Ramone Smiley on 02-07-2025 MCH (RBC) [Entitic mass] 27.9 pg 27.0-32.0 [facility] Monocyte percentageOrdered B y: Ramone Smiley on 02-07-2025 Monocytes/100 WBC (Bld) 5.2 % 0-10 [facility] Neutrophil percentageOrdered By: Ramone Smiley on 02-07-2025 Neutrophils/100 WBC (Bld) 87.0 % High 47-70 [facility] No Panel InformationOrdered By: Ramone Smiley on 02-07-2025 29 U/L <32 [facility] Platelet countOrdered By: Richar Smiley on 02-07-2025 Platelets (Bld) [#/Vol] 247 10*3/uL 150-450 [facility] Potassium measurement (mass/ volume)Ordered By: Ramone Smiley on 02-07-2025 Potassium (Unsp spec) [Mass/Vol] 5.1 mmol/L 3.3-5.1 [facility] RBC Auto (Bld) [#/Vol]Ordere d By: Ramone Smiley on 02-07-2025 RBC (Bld) [#/Vol] 4.08 10*6/uL Low 4.2-5.4 [facility] Serum creatinine measurement (mass/volume)Ordered By: Ramone Smiley on 02-07-2025 Creatinine [Mass/Vol] 1.37 mg/dL High 0.70-1.20 [facility] Serum globulin measurementOr dered By: Ramone Smiley on 02-07-2025 Globulin (S) [Mass/Vol] 3.2 g/dL 2.2-4.2 [facility] Serum glucose measurement (m ass/volume)Ordered By: Ramone Smiley on 02-07-2025 Glucose [Mass/Vol] 254 mg/dL High 70-99 [facility] Serum or plasma alanine kelley otransferase (ALT) measurementOrdered By: Ramone Smiley on 02-07-2025 ALT [Catalytic activity/Vol] 20 U/L <35 [facility] Serum or plasma albumin melanie urement (mass/volume)Ordered By: Ramone Smiley on 02-07-2025 Albumin [Mass/Vol] 3.3 g/dL Low 3.4-4.8 [facility] Serum or plasma albumin/glob ulin mass ratioOrdered By: Ramone Smiley on 02-07-2025 Albumin/Globulin [Mass ratio] 1.0 {ratio} 0.9-2.4 [facility] Serum or plasma alkaline lissa sphatase measurementOrdered By: Ramone Smiley on 02-07-2025 ALP [Catalytic activity/Vol] 86 U/L 35-104 [facility] Serum or plasma calcium melanie urement (mass/volume)Ordered By: Ramone Smiley on 02-07-2025 Calcium [Mass/Vol] 10.2 mg/dL 7.6-11.0 [facility] Serum or plasma urea nitroge n measurement (mass/volume)Ordered By: Ramone Smiley on 02-07-2025 Urea nitrogen [Mass/Vol] 24 mg/dL High 4-19 [facility] Sodium levelOrdered By: Ramone Smiley on 02-07-2025 Sodium [Moles/Vol] 136 mmol/L 133-145 [facility] Total proteinOrdered By: Lilliam Smiley on 02-07-2025 Protein [Mass/Vol] 6.5 g/dL 5.9-8.4 [facility] White blood cell (WBC) count Ordered By: Ramone Smiley on 02-07-2025 WBC (Bld) [#/Vol] 11.5 10*3/uL High 4.4-11.0 [facility] Bedside Glucoseon 02-06-2025 FINGERSTICK GLU 190 mg/dL High 74-106 [facility] Comment on above: Result Comment: KATARINA GEMENT OF PATIENT CARE PER NURSING PROTOCOL Performed By: #### L 501.080 ####[facility] [address] [place], [address] FINGERSTICK GLU 237 mg/dL High 74-106 [facility] Comment on above: Result Comment: KATARINA GEMENT OF PATIENT CARE PER NURSING PROTOCOL Performed By: #### L 501.080 ####[facility] [address] [facility] [address] Discharge Instructionon 06-0 Discharge Instruction Normal [facility] Electrocardiogram reportOrde red By: Marcelina Soto on 02-06-2025 EKG study [facility] Work Phone: Gl[facility] at [facility] deOrdered By: Lucio Borden on 02-06-2025 Glucose [Mass/Vol] 190 mg/dL High 74-106 [facility] Anion gap in Serum or Plasma Ordered By: Lucio Borden on 02-05-2025 Anion gap [Moles/Vol] 15 mmol/L 5-15 [facility] BUN/creatinine ratioOrdered By: Lucio Borden on 02-05-2025 Urea nitrogen/Creatinine [Mass ratio] 16.1 mg/mg 10-20 [facility] Basic Metabolic Profile (BMP )on 02-05-2025 BUN/CRE 16.1 RATIO Normal -20 [facility] Comment on above: Performed By: #### L 500.2500 ####[facility] [address] [place], [address] Calcium [Mass/Vol] 9.1 mg/dL Normal 7.6-11.0 [facility] Comment on above: Performed By: #### L 500.2500 ####[facility] [address] [place], [address] Chloride [Moles/Vol] 94 mmol/L Low 98-108 [facility] Comment on above: Performed By: #### L 500.2500 ####[facility] [address] [place], [address] CO2 [Moles/Vol] 26.4 mmol/L Normal 21.0-32.0 [facility] Comment on above: Performed By: #### L 500.2500 ####[facility] [address] [place], [address] Creatinine [Mass/Vol] 1.06 mg/dL Normal 0.70-1.20 [facility] Comment on above: Performed By: #### L 500.2500 ####[facility] [address] [place], [address] ECRCL 39.38 ml/min Low 50-250 [facility] Comment on above: Performed By: #### L 500.2500 ####[facility] [address] [place], [address] GAP 15 Normal 5-15 [facility] Comment on above: Performed By: #### L 500.2500 ####[facility] [address] [place], [address] GFR/1.73 sq M.predicted among non-blacks MDRD (S/P/Bld) [Vol rate/Area] 53 mL/min/{1.73_m2} Low >60 [facility] Comment on above: Result Comment: mL/m in/1.73m2 CKD-EPI Creatinine Equation (2020) Performed By: #### L 500.2500 ####[facility] [address] [place], [address] Glucose [Mass/Vol] 272 mg/dL High 70-99 [facility] Comment on above: Performed By: #### L 500.2500 ####[facility] [address] [place], [address] Potassium [Moles/Vol] 4.2 mmol/L Normal 3.3-5.1 [facility] Comment on above: Performed By: #### L 500.2500 ####[facility] [address] [place], [address] Sodium [Moles/Vol] 135 mmol/L Normal 133-145 [facility] Comment on above: Performed By: #### L 500.2500 ####[facility] [address] [place], [address] Urea nitrogen [Mass/Vol] 17 mg/dL Normal 4-19 [facility] Comment on above: Performed By: #### L 500.2500 ####[facility] [address] [place], [address] Bedside Glucoseon 02-05-2025 FINGERSTICK GLU 156 mg/dL High 74-106 [facility] Comment on above: Result Comment: KATARINA GEMENT OF PATIENT CARE PER NURSING PROTOCOL Performed By: #### L 501.080 ####[facility] [address] [place], [address] FINGERSTICK GLU 128 mg/dL High 74-106 [facility] Comment on above: Result Comment: KATARINA GEMENT OF PATIENT CARE PER NURSING PROTOCOL Performed By: #### L 501.080 ####[facility] [address] [place], [address] FINGERSTICK GLU 296 mg/dL High 74-106 [facility] Comment on above: Result Comment: KATARINA GEMENT OF PATIENT CARE PER NURSING PROTOCOL Performed By: #### L 501.080 ####[facility] [address] [place], [address] FINGERSTICK GLU 238 mg/dL High 74-106 [facility] Comment on above: Result Comment: KATARINA GEMENT OF PATIENT CARE PER NURSING PROTOCOL Performed By: #### L 501.080 ####[facility] [address] [place], [address] Carbon dioxide, total [Moles /volume] in Central venous bloodOrdered By: Lucio Borden on 02-05-2025 CO2 [Moles/Vol] 26.4 mmol/L 21.0-32.0 [facility] Chloride assayOrdered By: Chen Borden on 02-05-2025 Chloride [Moles/Vol] 94 mmol/L Low 98-108 [facility] Glomerular filtration rate ( GFR) estimation/1.73 sq m using serum, plasma, or whole bOrdered By: Lucio Borden on 02-05-2025 GFR/1.73 sq M.predicted among non-blacks MDRD (S/P/Bld) [Vol rate/Area] 53 mL/min/{1.73_m2} Low >60 [facility] Potassium measurement (mass/ volume)Ordered By: Lucio Borden on 02-05-2025 Potassium (Unsp spec) [Mass/Vol] 4.2 mmol/L 3.3-5.1 [facility] Serum creatinine measurement (mass/volume)Ordered By: Lucio Borden on 02-05-2025 Creatinine [Mass/Vol] 1.06 mg/dL 0.70-1.20 [facility] Serum glucose measurement (m ass/volume)Ordered By: Lucio Borden on 02-05-2025 Glucose [Mass/Vol] 272 mg/dL High 70-99 [facility] Serum or plasma calcium melanie urement (mass/volume)Ordered By: Lucio Borden on 02-05-2025 Calcium [Mass/Vol] 9.1 mg/dL 7.6-11.0 [facility] Serum or plasma urea nitroge n measurement (mass/volume)Ordered By: Lucio Borden on 02-05-2025 Urea nitrogen [Mass/Vol] 17 mg/dL 4-19 [facility] Sodium levelOrdered By: Lucio Borden on 02-05-2025 Sodium [Moles/Vol] 135 mmol/L 133-145 [facility] 12 Lead EKGon 02-04-2025 12 Lead EKG Normal [facility] Absolute lymphocyte countOrd ered By: Aj Holley on 02-04-2025 Lymphocytes Auto (Unsp spec) [#/Vol] 1.75 10*3/uL 0.83-4.51 [facility] Anion gap in Serum or Plasma Ordered By: Aj Holley on 02-04-2025 Anion gap [Moles/Vol] 16 mmol/L High 5-15 [facility] Automated lymphocyte count a s percentage of total leukocytesOrdered By: Aj Holley on 02-04-2025 Lymphocytes/100 WBC Auto (Unsp spec) 15.7 % Low 19-41 [facility] BUN/creatinine ratioOrdered By: Aj Holley on 02-04-2025 Urea nitrogen/Creatinine [Mass ratio] 13.2 mg/mg - [facility] Basic Metabolic Profile (BMP )on 02-04-2025 BUN/CRE 13.2 RATIO Normal - [facility] Comment on above: Performed By: #### L 500.2500, L100.0100 ####[facility] [address] [place], [address] Calcium [Mass/Vol] 8.9 mg/dL Normal 7.6-11.0 [facility] Comment on above: Performed By: #### L 500.2500, L100.0100 ####[facility] [address] [place], [address] Chloride [Moles/Vol] 95 mmol/L Low 98-108 [facility] Comment on above: Performed By: #### L 500.2500, L100.0100 ####[facility] [address] [place], [address] CO2 [Moles/Vol] 25.9 mmol/L Normal 21.0-32.0 [facility] Comment on above: Performed By: #### L 500.2500, L100.0100 ####[facility] [address] [place], [address] Creatinine [Mass/Vol] 1.14 mg/dL Normal 0.70-1.20 [facility] Comment on above: Performed By: #### L 500.2500, L100.0100 ####[facility] [address] [place], [address] ECRCL 37.95 ml/min Low 50-250 [facility] Comment on above: Performed By: #### L 500.2500, L100.0100 ####[facility] [address] [place], [address] GAP 16 High 5-15 [facility] Comment on above: Performed By: #### L 500.2500, L100.0100 ####[facility] [address] [place], [address] GFR/1.73 sq M.predicted among non-blacks MDRD (S/P/Bld) [Vol rate/Area] 48 mL/min/{1.73_m2} Low >60 [facility] Comment on above: Result Comment: mL/m in/1.73m2 CKD-EPI Creatinine Equation (2020) Performed By: #### L 500.2500, L100.0100 ####[facility] [address] [place], [address] Glucose [Mass/Vol] 132 mg/dL High 70-99 [facility] Comment on above: Performed By: #### L 500.2500, L100.0100 ####[facility] [address] [place], [address] Potassium [Moles/Vol] 3.9 mmol/L Normal 3.3-5.1 [facility] Comment on above: Result Comment: Hemo lysis present, Results??could be affected.?? Performed By: #### L 500.2500, L100.0100 ####[facility] [address] [place], [address] Sodium [Moles/Vol] 137 mmol/L Normal 133-145 [facility] Comment on above: Performed By: #### L 500.2500, L100.0100 ####[facility] [address] [place], [address] Urea nitrogen [Mass/Vol] 15 mg/dL Normal 4-19 [facility] Comment on above: Performed By: #### L 500.2500, L100.0100 ####[facility] [address] [place], [address] Basophil percentageOrdered B y: Aj Holley on 02-04-2025 Basophils/100 WBC (Bld) 0.2 % 0-1 [facility] Bedside Glucoseon 02-04-2025 FINGERSTICK GLU 179 mg/dL High 74-106 [facility] Comment on above: Result Comment: KATARINA GEMENT OF PATIENT CARE PER NURSING PROTOCOL Performed By: #### L 501.080 ####[facility] [address] [place], [address] FINGERSTICK GLU 240 mg/dL High 74-106 [facility] Comment on above: Result Comment: KATARINA GEMENT OF PATIENT CARE PER NURSING PROTOCOL Performed By: #### L 501.080 ####[facility] [address] [place], [address] CBC W/Diff, Automatedon 06 Absolute Lymph 1.75 X10 3/uL Normal 0.83-4.51 [facility] Comment on above: Performed By: #### L 500.2500, L100.0100 ####[facility] [address] [place], [address] Absolute Neut 8.4 X10 3/uL High 2.0-7.7 [facility] Comment on above: Performed By: #### L 500.2500, L100.0100 ####[facility] [address] [place], [address] Basophils/100 WBC (Bld) 0.2 % Normal 0-1 [facility] Comment on above: Performed By: #### L 500.2500, L100.0100 ####[facility] [address] [place], [address] Eosinophils/100 WBC (Bld) 1.7 % Normal 0-5 [facility] Comment on above: Performed By: #### L 500.2500, L100.0100 ####[facility] [address] [place], [address] Erythrocyte distribution width (RBC) [Ratio] 15.9 % High 11.6-14.6 [facility] Comment on above: Performed By: #### L 500.2500, L100.0100 ####[facility] [address] [place], [address] Hematocrit (Bld) [Volume fraction] 34.1 % Low 37-47 [facility] Comment on above: Performed By: #### L 500.2500, L100.0100 ####[facility] [address] [place], [address] Hemoglobin (Bld) [Mass/Vol] 10.7 g/dL Low 12.0-15.0 [facility] Comment on above: Performed By: #### L 500.2500, L100.0100 ####[facility] [address] [place], [address] IG% 0.400 Normal 0.0-0.9 [facility] Comment on above: Result Comment: IG% - Immature Granulocytes (promyelocytes, myelocytes andmetamyelocytes) > 1% indicates that a LEFT SHIFT is Present. Performed By: #### L 500.2500, L100.0100 ####[facility] [address] [place], [address] Lymphocytes/100 WBC (Bld) 15.7 % Low 19-41 [facility] Comment on above: Performed By: #### L 500.2500, L100.0100 ####[facility] [address] [place], [address] MCH (RBC) [Entitic mass] 27.9 pg Normal 27.0-32.0 [facility] Comment on above: Performed By: #### L 500.2500, L100.0100 ####[facility] [address] [place], [address] MCHC (RBC) [Mass/Vol] 31.4 g/dL Low 32-36 [facility] Comment on above: Performed By: #### L 500.2500, L100.0100 ####[facility] [address] [place], [address] MCV (RBC) [Entitic vol] 88.8 fL Normal 81-99 [facility] Comment on above: Performed By: #### L 500.2500, L100.0100 ####[facility] [address] [place], [address] Monocytes/100 WBC (Bld) 6.6 % Normal 0-10 [facility] Comment on above: Performed By: #### L 500.2500, L100.0100 ####[facility] [address] [place], [address] Neutrophils/100 WBC (Bld) 75.4 % High 47-70 [facility] Comment on above: Performed By: #### L 500.2500, L100.0100 ####[facility] [address] [place], [address] Nucleated RBC (Bld) [#/Vol] 0 10*3/uL Normal 0-5 [facility] Comment on above: Performed By: #### L 500.2500, L100.0100 ####[facility] [address] [place], [address] Platelet mean volume (Bld) [Entitic vol] 11.3 fL Normal 6.2-12.0 [facility] Comment on above: Performed By: #### L 500.2500, L100.0100 ####[facility] [address] [place], [address] Platelets (Bld) [#/Vol] 185 10*3/uL Normal 150-450 [facility] Comment on above: Performed By: #### L 500.2500, L100.0100 ####[facility] [address] [place], [address] RBC (Bld) [#/Vol] 3.84 10*6/uL Low 4.2-5.4 [facility] Comment on above: Performed By: #### L 500.2500, L100.0100 ####[facility] [address] [place], [address] RDW SD 51.4 fl High 35.1-43.9 [facility] Comment on above: Performed By: #### L 500.2500, L100.0100 ####[facility] [address] [place], [address] WBC (Bld) [#/Vol] 11.2 10*3/uL High 4.4-11.0 [facility] Comment on above: Performed By: #### L 500.2500, L100.0100 ####[facility] [address] [place], [address] CTA Chest W/WO Contraston CTA Chest W/WO Contrast Normal [facility] Carbon dioxide, total [Moles /volume] in Central venous bloodOrdered By: Aj Holley on 02-04-2025 CO2 [Moles/Vol] 25.9 mmol/L 21.0-32.0 [facility] Chest PA and Lateralon 02-04 Chest PA and Lateral Normal [facility] Chloride assayOrdered By: Dahlia Holley on 02-04-2025 Chloride [Moles/Vol] 95 mmol/L Low 98-108 [facility] Emergency Department Summary on 02-04-2025 Emergency Department Summary Normal [facility] Eosinophil percentageOrdered By: Aj Holley on 02-04-2025 Eosinophils/100 WBC (Bld) 1.7 % 0-5 [facility] Erythrocyte distribution wid th ratioOrdered By: Aj Holley on 02-04-2025 Erythrocyte distribution width (RBC) [Ratio] 15.9 % High 11.6-14.6 [facility] Erythrocyte distribution wid th standard deviationOrdered By: Aj Holley on 02-04-2025 Erythrocyte distribution width (RBC) [Ratio] 51.4 fl High 35.1-43.9 [facility] Glomerular filtration rate ( GFR) estimation/1.73 sq m using serum, plasma, or whole bOrdered By: Aj Holley on 02-04-2025 GFR/1.73 sq M.predicted among non-blacks MDRD (S/P/Bld) [Vol rate/Area] 48 mL/min/{1.73_m2} Low >60 [facility] H AND P Exam - Hospitaliston 02-04-2025 H&P Exam - Hospitalist Normal [facility] Hematocrit Auto (Bld) [Volum e fraction]Ordered By: Ajanu Holley on 02-04-2025 Hematocrit (Bld) [Volume fraction] 34.1 % Low 37-47 [facility] Hemoglobin measurementOrdere d By: Aj Holley on 02-04-2025 Hemoglobin (Bld) [Mass/Vol] 10.7 g/dL Low 12.0-15.0 [facility] Immature granulocytes/100 WB C Auto (Bld)Ordered By: Aj Holley on 02-04-2025 Immature granulocytes/100 WBC (Bld) 0.400 % 0.0-0.9 [facility] L499.0042on 02-04-2025 Trop T High Sen 133 ng/L Invalid Interpretation Code <=14 [facility] Comment on above: Result Comment: Crit ical Result(s) Called at 0915: by: SHARONA EASLEY. ??Results read back by same. Performed By: #### L 499.0042 ####[facility] [address] [place], [address] L499.0043on 02-04-2025 Trop T High Sen 139 ng/L Invalid Interpretation Code <=14 [facility] Comment on above: Result Comment: Crit ical Result(s) Called at 1125: by: Michael meza Hope.??Results read back by same. Performed By: #### L 499.0043 ####[facility] [address], [address] L501.4021on 02-04-2025 Trop T High Sen 139 ng/L Invalid Interpretation Code <=14 [facility] Comment on above: Result Comment: Crit ical Result(s) Called at 0809: by: SHARONA GO.??Results read back by same. Performed By: #### L 503.7505, L501.4021 ####[facility] [address], [address] L503.7505on 02-04-2025 Natriuretic peptide B (Bld) [Mass/Vol] 6247 pg/mL High <=1800 [facility] Comment on above: Result Comment: Hear t Failure Unlikely: < 300 pg/mLHeart Failure Likely< 50 Years: > 450 pg/mL50-75 Years: > 900 pg/mL>75 Years: > 1800 pg/mL Performed By: #### L 503.7508, L501.4021 ####[facility] [address] [facility] [address] [place], [place], [address] MCV (mean corpuscular volume ) determinationOrdered By: Aj Holley on 02-04-2025 MCV (RBC) [Entitic vol] 88.8 fL 81-99 [facility] Mean corpuscular hemoglobin (MCH) determinationOrdered By: Aj Holley on 02-04-2025 MCH (RBC) [Entitic mass] 27.9 pg 27.0-32.0 [facility] Monocyte percentageOrdered B y: Aj Holley on 02-04-2025 Monocytes/100 WBC (Bld) 6.6 % 0-10 [facility] Natriuretic peptide.B prohor hyaley N-Terminal [Mass/volume] in Serum or PlasmaOrdered By: Aj Holley on 02-04-2025 Natriuretic peptide.B prohormone N-Terminal [Mass/Vol] 6247 pg/mL High <1800 [facility] Neutrophil percentageOrdered By: Aj Holley on 02-04-2025 Neutrophils/100 WBC (Bld) 75.4 % High 47-70 [facility] Platelet countOrdered By: Dahlia Holley on 02-04-2025 Platelets (Bld) [#/Vol] 185 10*3/uL 150-450 [facility] Potassium measurement (mass/ volume)Ordered By: Aj Holley on 02-04-2025 Potassium (Unsp spec) [Mass/Vol] 3.9 mmol/L 3.3-5.1 [facility] RBC Auto (Bld) [#/Vol]Ordere d By: Aj Holley on 02-04-2025 RBC (Bld) [#/Vol] 3.84 10*6/uL Low 4.2-5.4 [facility] Serum creatinine measurement (mass/volume)Ordered By: Aj Holley on 02-04-2025 Creatinine [Mass/Vol] 1.14 mg/dL 0.70-1.20 [facility] Serum glucose measurement (m ass/volume)Ordered By: Aj Holley on 02-04-2025 Glucose [Mass/Vol] 132 mg/dL High 70-99 [facility] Serum or plasma calcium melanie urement (mass/volume)Ordered By: Aj Holley on 02-04-2025 Calcium [Mass/Vol] 8.9 mg/dL 7.6-11.0 [facility] Serum or plasma urea nitroge n measurement (mass/volume)Ordered By: Aj Holley on 02-04-2025 Urea nitrogen [Mass/Vol] 15 mg/dL 4-19 [facility] Sodium levelOrdered By: Reynaldo Holley on 02-04-2025 Sodium [Moles/Vol] 137 mmol/L 133-145 [facility] Troponin T.cardiac [Mass/vol ume] in Serum or Plasma by High sensitivity methodOrdered By: Aj Holley on 02-04-2025 Troponin T.cardiac High sensitivity method [Mass/Vol] 139 ng/L High <14 [facility] Troponin T.cardiac High sensitivity method [Mass/Vol] 133 ng/L High <14 [facility] Troponin T.cardiac High sensitivity method [Mass/Vol] 139 ng/L High <14 [facility] White blood cell (WBC) count Ordered By: Aj Holley on 02-04-2025 WBC (Bld) [#/Vol] 11.2 10*3/uL High 4.4-11.0 [facility] Cardiology Visit Reporton Cardiology Visit Report Normal [facility] Basic Metabolic Profile (BMP )on 01-30-2025 BUN Normal 4-19 [facility] Comment on above: Result Comment: Canc elled via OM: Order cancelled - Patient discharged Performed By: #### L 100.0100, L500.2500 ####[facility] [address] [place], [address] BUN/CRE Normal 10-20 [facility] Comment on above: Result Comment: Canc elled via OM: Order cancelled - Patient discharged Performed By: #### L 100.0100, L500.2500 ####[facility] [address] [place], [address] Calcium Normal 7.6-11.0 [facility] Comment on above: Result Comment: Canc elled via OM: Order cancelled - Patient discharged Performed By: #### L 100.0100, L500.2500 ####[facility] [address] [place], [address] CL Normal 98-108 [facility] Comment on above: Result Comment: Canc elled via OM: Order cancelled - Patient discharged Performed By: #### L 100.0100, L500.2500 ####[facility] [address] [place], [address] CO2 Normal 21.0-32.0 [facility] Comment on above: Result Comment: Canc elled via OM: Order cancelled - Patient discharged Performed By: #### L 100.0100, L500.2500 ####[facility] [address] [place], [address] CREAT,SERUM Normal 0.70-1.20 [facility] Comment on above: Result Comment: Canc elled via OM: Order cancelled - Patient discharged Performed By: #### L 100.0100, L500.2500 ####[facility] [address] [place], [address] eGFR Normal >60 [facility] Comment on above: Result Comment: Canc elled via OM: Order cancelled - Patient discharged Performed By: #### L 100.0100, L500.2500 ####[facility] [address] [place], [address] GAP Normal 5-15 [facility] Comment on above: Result Comment: Canc elled via OM: Order cancelled - Patient discharged Performed By: #### L 100.0100, L500.2500 ####[facility] [address] [place], [address] GLU Normal 70-99 [facility] Comment on above: Result Comment: Canc elled via OM: Order cancelled - Patient discharged Performed By: #### L 100.0100, L500.2500 ####[facility] [address] [place], [address] Potassium Normal 3.3-5.1 [facility] Comment on above: Result Comment: Canc elled via OM: Order cancelled - Patient discharged Performed By: #### L 100.0100, L500.2500 ####[facility] [address] [place], [address] Basic Metabolic Profile (BMP) Normal 133-145 [facility] Comment on above: Result Comment: Canc elled via OM: Order cancelled - Patient discharged Performed By: #### L 100.0100, L500.2500 ####[facility] [address] [place], [address] CBC W/Diff, Automatedon 06-0 Absolute Neut Normal 2.0-7.7 [facility] Comment on above: Result Comment: Canc elled via OM: Order cancelled - Patient discharged Performed By: #### L 100.0100, L500.2500 ####[facility] [address] [place], [address] HCT Normal 37-47 [facility] Comment on above: Result Comment: Canc elled via OM: Order cancelled - Patient discharged Performed By: #### L 100.0100, L500.2500 ####[facility] [address] [place], [address] HGB Normal 12.0-15.0 [facility] Comment on above: Result Comment: Canc elled via OM: Order cancelled - Patient discharged Performed By: #### L 100.0100, L500.2500 ####[facility] [address] [place], [address] MCH Normal 27.0-32.0 [facility] Comment on above: Result Comment: Canc elled via OM: Order cancelled - Patient discharged Performed By: #### L 100.0100, L500.2500 ####[facility] [address] [place], [address] MCHC Normal 32-36 [facility] Comment on above: Result Comment: Canc elled via OM: Order cancelled - Patient discharged Performed By: #### L 100.0100, L500.2500 ####[facility] [address] [place], [address] MCV Normal 81-99 [facility] Comment on above: Result Comment: Canc elled via OM: Order cancelled - Patient discharged Performed By: #### L 100.0100, L500.2500 ####[facility] [address] [place], [address] NEUT% Normal 47-70 [facility] Comment on above: Result Comment: Canc elled via OM: Order cancelled - Patient discharged Performed By: #### L 100.0100, L500.2500 ####[facility] [address] [place], [address] PLT Normal 150-450 [facility] Comment on above: Result Comment: Canc elled via OM: Order cancelled - Patient discharged Performed By: #### L 100.0100, L500.2500 ####[facility] [address] [place], [address] RBC Normal 4.2-5.4 [facility] Comment on above: Result Comment: Canc elled via OM: Order cancelled - Patient discharged Performed By: #### L 100.0100, L500.2500 ####[facility] [address] [place], [address] RDW CV Normal 11.6-14.6 [facility] Comment on above: Result Comment: Canc elled via OM: Order cancelled - Patient discharged Performed By: #### L 100.0100, L500.2500 ####[facility] [address] [place], [address] RDW SD Normal 35.1-43.9 [facility] Comment on above: Result Comment: Canc elled via OM: Order cancelled - Patient discharged Performed By: #### L 100.0100, L500.2500 ####[facility] [address] [place], [address] WBC Normal 4.4-11.0 [facility] Comment on above: Result Comment: Canc elled via OM: Order cancelled - Patient discharged Performed By: #### L 100.0100, L500.2500 ####[facility] [address] [place], [address] Basic Metabolic Profile (BMP )on 01-29-2025 BUN Normal 4-19 [facility] Comment on above: Result Comment: Canc elled via OM: Order cancelled - Patient discharged Performed By: #### L 100.0100, L500.2500 ####[facility] [address] [place], [address] BUN/CRE Normal 10-20 [facility] Comment on above: Result Comment: Canc elled via OM: Order cancelled - Patient discharged Performed By: #### L 100.0100, L500.2500 ####[facility] [address] [place], [address] Calcium Normal 7.6-11.0 [facility] Comment on above: Result Comment: Canc elled via OM: Order cancelled - Patient discharged Performed By: #### L 100.0100, L500.2500 ####[facility] [address] [place], [address] CL Normal 98-108 [facility] Comment on above: Result Comment: Canc elled via OM: Order cancelled - Patient discharged Performed By: #### L 100.0100, L500.2500 ####[facility] [address] [place], [address] CO2 Normal 21.0-32.0 [facility] Comment on above: Result Comment: Canc elled via OM: Order cancelled - Patient discharged Performed By: #### L 100.0100, L500.2500 ####[facility] [address] [place], [address] CREAT,SERUM Normal 0.70-1.20 [facility] Comment on above: Result Comment: Canc elled via OM: Order cancelled - Patient discharged Performed By: #### L 100.0100, L500.2500 ####[facility] [address] [place], [address] eGFR Normal >60 [facility] Comment on above: Result Comment: Canc elled via OM: Order cancelled - Patient discharged Performed By: #### L 100.0100, L500.2500 ####[facility] [address] [place], [address] GAP Normal 5-15 [facility] Comment on above: Result Comment: Canc elled via OM: Order cancelled - Patient discharged Performed By: #### L 100.0100, L500.2500 ####[facility] [address] [place], [address] GLU Normal 70-99 [facility] Comment on above: Result Comment: Canc elled via OM: Order cancelled - Patient discharged Performed By: #### L 100.0100, L500.2500 ####[facility] [address] [place], [address] Potassium Normal 3.3-5.1 [facility] Comment on above: Result Comment: Canc elled via OM: Order cancelled - Patient discharged Performed By: #### L 100.0100, L500.2500 ####[facility] [address] [place], [address] Basic Metabolic Profile (BMP) Normal 133-145 [facility] Comment on above: Result Comment: Canc elled via OM: Order cancelled - Patient discharged Performed By: #### L 100.0100, L500.2500 ####[facility] [address] [place], [address] CBC W/Diff, Automatedon 06-0 -2024 Absolute Neut Normal 2.0-7.7 [facility] Comment on above: Result Comment: Canc elled via OM: Order cancelled - Patient discharged Performed By: #### L 100.0100, L500.2500 ####[facility] [address] [place], [address] HCT Normal 37-47 [facility] Comment on above: Result Comment: Canc elled via OM: Order cancelled - Patient discharged Performed By: #### L 100.0100, L500.2500 ####[facility] [address] [place], [address] HGB Normal 12.0-15.0 [facility] Comment on above: Result Comment: Canc elled via OM: Order cancelled - Patient discharged Performed By: #### L 100.0100, L500.2500 ####[facility] [address] [place], [address] MCH Normal 27.0-32.0 [facility] Comment on above: Result Comment: Canc elled via OM: Order cancelled - Patient discharged Performed By: #### L 100.0100, L500.2500 ####[facility] [address] [place], [address] MCHC Normal 32-36 [facility] Comment on above: Result Comment: Canc elled via OM: Order cancelled - Patient discharged Performed By: #### L 100.0100, L500.2500 ####[facility] [address] [place], [address] MCV Normal 81-99 [facility] Comment on above: Result Comment: Canc elled via OM: Order cancelled - Patient discharged Performed By: #### L 100.0100, L500.2500 ####[facility] [address] [place], [address] NEUT% Normal 47-70 [facility] Comment on above: Result Comment: Canc elled via OM: Order cancelled - Patient discharged Performed By: #### L 100.0100, L500.2500 ####[facility] [address] [place], [address] PLT Normal 150-450 [facility] Comment on above: Result Comment: Canc elled via OM: Order cancelled - Patient discharged Performed By: #### L 100.0100, L500.2500 ####[facility] [address] [place], [address] RBC Normal 4.2-5.4 [facility] Comment on above: Result Comment: Canc elled via OM: Order cancelled - Patient discharged Performed By: #### L 100.0100, L500.2500 ####[facility] [address] [place], [address] RDW CV Normal 11.6-14.6 [facility] Comment on above: Result Comment: Canc elled via OM: Order cancelled - Patient discharged Performed By: #### L 100.0100, L500.2500 ####[facility] [address] [place], [address] RDW SD Normal 35.1-43.9 [facility] Comment on above: Result Comment: Canc elled via OM: Order cancelled - Patient discharged Performed By: #### L 100.0100, L500.2500 ####[facility] [address] [place], [address] WBC Normal 4.4-11.0 [facility] Comment on above: Result Comment: Canc elled via OM: Order cancelled - Patient discharged Performed By: #### L 100.0100, L500.2500 ####[facility] [address] [place], [address] Basic Metabolic Profile (BMP )on 01-28-2025 BUN Normal 4-19 [facility] Comment on above: Result Comment: Canc elled via OM: Order cancelled - Patient discharged Performed By: #### L 500.2500, L100.0100 ####[facility] [address] [place], [address] BUN/CRE Normal 10-20 [facility] Comment on above: Result Comment: Canc elled via OM: Order cancelled - Patient discharged Performed By: #### L 500.2500, L100.0100 ####[facility] [address] [place], [address] Calcium Normal 7.6-11.0 [facility] Comment on above: Result Comment: Canc elled via OM: Order cancelled - Patient discharged Performed By: #### L 500.2500, L100.0100 ####[facility] [address] [place], [address] CL Normal 98-108 [facility] Comment on above: Result Comment: Canc elled via OM: Order cancelled - Patient discharged Performed By: #### L 500.2500, L100.0100 ####[facility] [address] [place], [address] CO2 Normal 21.0-32.0 [facility] Comment on above: Result Comment: Canc elled via OM: Order cancelled - Patient discharged Performed By: #### L 500.2500, L100.0100 ####[facility] [address] [place], [address] CREAT,SERUM Normal 0.70-1.20 [facility] Comment on above: Result Comment: Canc elled via OM: Order cancelled - Patient discharged Performed By: #### L 500.2500, L100.0100 ####[facility] [address] [place], [address] eGFR Normal >60 [facility] Comment on above: Result Comment: Canc elled via OM: Order cancelled - Patient discharged Performed By: #### L 500.2500, L100.0100 ####[facility] [address] [place], [address] GAP Normal 5-15 [facility] Comment on above: Result Comment: Canc elled via OM: Order cancelled - Patient discharged Performed By: #### L 500.2500, L100.0100 ####[facility] [address] [place], [address] GLU Normal 70-99 [facility] Comment on above: Result Comment: Canc elled via OM: Order cancelled - Patient discharged Performed By: #### L 500.2500, L100.0100 ####[facility] [address] [place], [address] Potassium Normal 3.3-5.1 [facility] Comment on above: Result Comment: Canc elled via OM: Order cancelled - Patient discharged Performed By: #### L 500.2500, L100.0100 ####[facility] [address] [place], [address] Basic Metabolic Profile (BMP) Normal 133-145 [facility] Comment on above: Result Comment: Canc elled via OM: Order cancelled - Patient discharged Performed By: #### L 500.2500, L100.0100 ####[facility] [address] [place], [address] CBC W/Diff, Automatedon 05-3 Absolute Neut Normal 2.0-7.7 [facility] Comment on above: Result Comment: Canc elled via OM: Order cancelled - Patient discharged Performed By: #### L 500.2500, L100.0100 ####[facility] [address] [place], [address] HCT Normal 37-47 [facility] Comment on above: Result Comment: Canc elled via OM: Order cancelled - Patient discharged Performed By: #### L 500.2500, L100.0100 ####[facility] [address] [place], [address] HGB Normal 12.0-15.0 [facility] Comment on above: Result Comment: Canc elled via OM: Order cancelled - Patient discharged Performed By: #### L 500.2500, L100.0100 ####[facility] [address] [place], [address] MCH Normal 27.0-32.0 [facility] Comment on above: Result Comment: Canc elled via OM: Order cancelled - Patient discharged Performed By: #### L 500.2500, L100.0100 ####[facility] [address] [place], [address] MCHC Normal 32-36 [facility] Comment on above: Result Comment: Canc elled via OM: Order cancelled - Patient discharged Performed By: #### L 500.2500, L100.0100 ####[facility] [address] [place], [address] MCV Normal 81-99 [facility] Comment on above: Result Comment: Canc elled via OM: Order cancelled - Patient discharged Performed By: #### L 500.2500, L100.0100 ####[facility] [address] [place], [address] NEUT% Normal 47-70 [facility] Comment on above: Result Comment: Canc elled via OM: Order cancelled - Patient discharged Performed By: #### L 500.2500, L100.0100 ####[facility] [address] [place], [address] PLT Normal 150-450 [facility] Comment on above: Result Comment: Canc elled via OM: Order cancelled - Patient discharged Performed By: #### L 500.2500, L100.0100 ####[facility] [address] [place], [address] RBC Normal 4.2-5.4 [facility] Comment on above: Result Comment: Canc elled via OM: Order cancelled - Patient discharged Performed By: #### L 500.2500, L100.0100 ####[facility] [address] [place], [address] RDW CV Normal 11.6-14.6 [facility] Comment on above: Result Comment: Canc elled via OM: Order cancelled - Patient discharged Performed By: #### L 500.2500, L100.0100 ####[facility] [address] [place], [address] RDW SD Normal 35.1-43.9 [facility] Comment on above: Result Comment: Canc elled via OM: Order cancelled - Patient discharged Performed By: #### L 500.2500, L100.0100 ####[facility] [address] [place], [address] WBC Normal 4.4-11.0 [facility] Comment on above: Result Comment: Canc elled via OM: Order cancelled - Patient discharged Performed By: #### L 500.2500, L100.0100 ####[facility] [address] [place], [address] Basic Metabolic Profile (BMP )on 01-27-2025 BUN Normal 4-19 [facility] Comment on above: Result Comment: Canc elled via OM: Order cancelled - Patient discharged Performed By: #### L 500.2500, L100.0100 ####[facility] [address] [place], [address] BUN/CRE Normal 10-20 [facility] Comment on above: Result Comment: Canc elled via OM: Order cancelled - Patient discharged Performed By: #### L 500.2500, L100.0100 ####[facility] [address] [place], [address] Calcium Normal 7.6-11.0 [facility] Comment on above: Result Comment: Canc elled via OM: Order cancelled - Patient discharged Performed By: #### L 500.2500, L100.0100 ####[facility] [address] [place], [address] CL Normal 98-108 [facility] Comment on above: Result Comment: Canc elled via OM: Order cancelled - Patient discharged Performed By: #### L 500.2500, L100.0100 ####[facility] [address] [place], [address] CO2 Normal 21.0-32.0 [facility] Comment on above: Result Comment: Canc elled via OM: Order cancelled - Patient discharged Performed By: #### L 500.2500, L100.0100 ####[facility] [address] [place], [address] CREAT,SERUM Normal 0.70-1.20 [facility] Comment on above: Result Comment: Canc elled via OM: Order cancelled - Patient discharged Performed By: #### L 500.2500, L100.0100 ####[facility] [address] [place], [address] eGFR Normal >60 [facility] Comment on above: Result Comment: Canc elled via OM: Order cancelled - Patient discharged Performed By: #### L 500.2500, L100.0100 ####[facility] [address] [place], [address] GAP Normal 5-15 [facility] Comment on above: Result Comment: Canc elled via OM: Order cancelled - Patient discharged Performed By: #### L 500.2500, L100.0100 ####[facility] [address] [place], [address] GLU Normal 70-99 [facility] Comment on above: Result Comment: Canc elled via OM: Order cancelled - Patient discharged Performed By: #### L 500.2500, L100.0100 ####[facility] [address] [place], [address] Potassium Normal 3.3-5.1 [facility] Comment on above: Result Comment: Canc elled via OM: Order cancelled - Patient discharged Performed By: #### L 500.2500, L100.0100 ####[facility] [address] [place], [address] Basic Metabolic Profile (BMP) Normal 133-145 [facility] Comment on above: Result Comment: Canc elled via OM: Order cancelled - Patient discharged Performed By: #### L 500.2500, L100.0100 ####[facility] [address] [place], [address] CBC W/Diff, Automatedon 05-3 0-2024 Absolute Neut Normal 2.0-7.7 [facility] Comment on above: Result Comment: Canc elled via OM: Order cancelled - Patient discharged Performed By: #### L 500.2500, L100.0100 ####[facility] [address] [place], [address] HCT Normal 37-47 [facility] Comment on above: Result Comment: Canc elled via OM: Order cancelled - Patient discharged Performed By: #### L 500.2500, L100.0100 ####[facility] [address] [place], [address] HGB Normal 12.0-15.0 [facility] Comment on above: Result Comment: Canc elled via OM: Order cancelled - Patient discharged Performed By: #### L 500.2500, L100.0100 ####[facility] [address] [place], [address] MCH Normal 27.0-32.0 [facility] Comment on above: Result Comment: Canc elled via OM: Order cancelled - Patient discharged Performed By: #### L 500.2500, L100.0100 ####[facility] [address] [place], [address] MCHC Normal 32-36 [facility] Comment on above: Result Comment: Canc elled via OM: Order cancelled - Patient discharged Performed By: #### L 500.2500, L100.0100 ####[facility] [address] [place], [address] MCV Normal 81-99 [facility] Comment on above: Result Comment: Canc elled via OM: Order cancelled - Patient discharged Performed By: #### L 500.2500, L100.0100 ####[facility] [address] [place], [address] NEUT% Normal 47-70 [facility] Comment on above: Result Comment: Canc elled via OM: Order cancelled - Patient discharged Performed By: #### L 500.2500, L100.0100 ####[facility] [address] [place], [address] PLT Normal 150-450 [facility] Comment on above: Result Comment: Canc elled via OM: Order cancelled - Patient discharged Performed By: #### L 500.2500, L100.0100 ####[facility] [address] [place], [address] RBC Normal 4.2-5.4 [facility] Comment on above: Result Comment: Canc elled via OM: Order cancelled - Patient discharged Performed By: #### L 500.2500, L100.0100 ####[facility] [address] [place], [address] RDW CV Normal 11.6-14.6 [facility] Comment on above: Result Comment: Canc elled via OM: Order cancelled - Patient discharged Performed By: #### L 500.2500, L100.0100 ####[facility] [address] [place], [address] RDW SD Normal 35.1-43.9 [facility] Comment on above: Result Comment: Canc elled via OM: Order cancelled - Patient discharged Performed By: #### L 500.2500, L100.0100 ####[facility] [address] [place], [address] WBC Normal 4.4-11.0 [facility] Comment on above: Result Comment: Canc elled via OM: Order cancelled - Patient discharged Performed By: #### L 500.2500, L100.0100 ####[facility] [address] [place], [address] Absolute lymphocyte countOrd ered By: Jg Bryan on 01-26-2025 Lymphocytes Auto (Unsp spec) [#/Vol] 2.24 10*3/uL 0.83-4.51 [facility] Anion gap in Serum or Plasma Ordered By: Jg Bryan on 01-26-2025 Anion gap [Moles/Vol] 10 mmol/L 5-15 [facility] Automated lymphocyte count a s percentage of total leukocytesOrdered By: Jg Bryan on 01-26-2025 Lymphocytes/100 WBC Auto (Unsp spec) 25.1 % 19-41 [facility] BUN/creatinine ratioOrdered By: Jg Bryan on 01-26-2025 Urea nitrogen/Creatinine [Mass ratio] 30.2 mg/mg High 10- [facility] Basic Metabolic Profile (BMP )on 01-26-2025 BUN Normal 4-19 [facility] Comment on above: Result Comment: Canc elled via OM: Order cancelled - Patient discharged Performed By: #### L 500.2500, L100.0100 ####[facility] [address] [place], [address] BUN/CRE Normal 10- [facility] Comment on above: Result Comment: Canc elled via OM: Order cancelled - Patient discharged Performed By: #### L 500.2500, L100.0100 ####[facility] [address] [place], [address] Calcium Normal 7.6-11.0 [facility] Comment on above: Result Comment: Canc elled via OM: Order cancelled - Patient discharged Performed By: #### L 500.2500, L100.0100 ####[facility] [address] [place], [address] CL Normal 98-108 [facility] Comment on above: Result Comment: Canc elled via OM: Order cancelled - Patient discharged Performed By: #### L 500.2500, L100.0100 ####[facility] [address] [place], [address] CO2 Normal 21.0-32.0 [facility] Comment on above: Result Comment: Canc elled via OM: Order cancelled - Patient discharged Performed By: #### L 500.2500, L100.0100 ####[facility] [address] [place], [address] CREAT,SERUM Normal 0.70-1.20 [facility] Comment on above: Result Comment: Canc elled via OM: Order cancelled - Patient discharged Performed By: #### L 500.2500, L100.0100 ####[facility] [address] [place], [address] eGFR Normal >60 [facility] Comment on above: Result Comment: Canc elled via OM: Order cancelled - Patient discharged Performed By: #### L 500.2500, L100.0100 ####[facility] [address] [place], [address] GAP Normal 5-15 [facility] Comment on above: Result Comment: Canc elled via OM: Order cancelled - Patient discharged Performed By: #### L 500.2500, L100.0100 ####[facility] [address] [place], [address] GLU Normal 70-99 [facility] Comment on above: Result Comment: Canc elled via OM: Order cancelled - Patient discharged Performed By: #### L 500.2500, L100.0100 ####[facility] [address] [place], [address] Potassium Normal 3.3-5.1 [facility] Comment on above: Result Comment: Canc elled via OM: Order cancelled - Patient discharged Performed By: #### L 500.2500, L100.0100 ####[facility] [address] [place], [address] Basic Metabolic Profile (BMP) Normal 133-145 [facility] Comment on above: Result Comment: Canc elled via OM: Order cancelled - Patient discharged Performed By: #### L 500.2500, L100.0100 ####[facility] [address] [place], [address] BUN/CRE 30.2 RATIO High 10-20 [facility] Comment on above: Performed By: #### L 503.7505, L500.2500, L100.0100, L501.5200 ####[facility] [address] [place], [address] Calcium [Mass/Vol] 10.2 mg/dL Normal 7.6-11.0 [facility] Comment on above: Performed By: #### L 503.7505, L500.2500, L100.0100, L501.5200 ####[facility] [address] [place], [address] Chloride [Moles/Vol] 104 mmol/L Normal 98-108 [facility] Comment on above: Performed By: #### L 503.7505, L500.2500, L100.0100, L501.5200 ####[facility] [address] [place], [address] CO2 [Moles/Vol] 27.1 mmol/L Normal 21.0-32.0 [facility] Comment on above: Performed By: #### L 503.7505, L500.2500, L100.0100, L501.5200 ####[facility] [address] [place], [address] Creatinine [Mass/Vol] 1.16 mg/dL Normal 0.70-1.20 [facility] Comment on above: Performed By: #### L 503.7505, L500.2500, L100.0100, L501.5200 ####[facility] [address] [place], [address] ECRCL 38.24 ml/min Low 50-250 [facility] Comment on above: Performed By: #### L 503.7505, L500.2500, L100.0100, L501.5200 ####[facility] [address] [place], [address] GAP 10 Normal 5-15 [facility] Comment on above: Performed By: #### L 503.7505, L500.2500, L100.0100, L501.5200 ####[facility] [address] [place], [address] GFR/1.73 sq M.predicted among non-blacks MDRD (S/P/Bld) [Vol rate/Area] 47 mL/min/{1.73_m2} Low >60 [facility] Comment on above: Result Comment: mL/m in/1.73m2 CKD-EPI Creatinine Equation (2020) Performed By: #### L 503.7505, L500.2500, L100.0100, L501.5200 ####[facility] [address] [place], [address] Glucose [Mass/Vol] 211 mg/dL High 70-99 [facility] Comment on above: Performed By: #### L 503.7505, L500.2500, L100.0100, L501.5200 ####[facility] [address] [place], [address] Potassium [Moles/Vol] 4.1 mmol/L Normal 3.3-5.1 [facility] Comment on above: Performed By: #### L 503.7505, L500.2500, L100.0100, L501.5200 ####[facility] [address] [place], [address] Sodium [Moles/Vol] 141 mmol/L Normal 133-145 [facility] Comment on above: Performed By: #### L 503.7505, L500.2500, L100.0100, L501.5200 ####[facility] [address] [place], [address] Urea nitrogen [Mass/Vol] 35 mg/dL High 4-19 [facility] Comment on above: Performed By: #### L 503.7505, L500.2500, L100.0100, L501.5200 ####[facility] [address] [place], [address] Basophil percentageOrdered B y: Jg Miguelinaes on 01-26-2025 Basophils/100 WBC (Bld) 0.1 % 0-1 [facility] CBC W/Diff, Automatedon 12-30 Absolute Neut Normal 2.0-7.7 [facility] Comment on above: Result Comment: Canc elled via OM: Order cancelled - Patient discharged Performed By: #### L 500.2500, L100.0100 ####[facility] [address] [place], [address] HCT Normal 37-47 [facility] Comment on above: Result Comment: Canc elled via OM: Order cancelled - Patient discharged Performed By: #### L 500.2500, L100.0100 ####[facility] [address] [place], [address] HGB Normal 12.0-15.0 [facility] Comment on above: Result Comment: Canc elled via OM: Order cancelled - Patient discharged Performed By: #### L 500.2500, L100.0100 ####[facility] [address] [place], [address] MCH Normal 27.0-32.0 [facility] Comment on above: Result Comment: Canc elled via OM: Order cancelled - Patient discharged Performed By: #### L 500.2500, L100.0100 ####[facility] [address] [place], [address] MCHC Normal 32-36 [facility] Comment on above: Result Comment: Canc elled via OM: Order cancelled - Patient discharged Performed By: #### L 500.2500, L100.0100 ####[facility] [address] [place], [address] MCV Normal 81-99 [facility] Comment on above: Result Comment: Canc elled via OM: Order cancelled - Patient discharged Performed By: #### L 500.2500, L100.0100 ####[facility] [address] [place], [address] NEUT% Normal 47-70 [facility] Comment on above: Result Comment: Canc elled via OM: Order cancelled - Patient discharged Performed By: #### L 500.2500, L100.0100 ####[facility] [address] [place], [address] PLT Normal 150-450 [facility] Comment on above: Result Comment: Canc elled via OM: Order cancelled - Patient discharged Performed By: #### L 500.2500, L100.0100 ####[facility] [address] [place], [address] RBC Normal 4.2-5.4 [facility] Comment on above: Result Comment: Canc elled via OM: Order cancelled - Patient discharged Performed By: #### L 500.2500, L100.0100 ####[facility] [address] [place], [address] RDW CV Normal 11.6-14.6 [facility] Comment on above: Result Comment: Canc elled via OM: Order cancelled - Patient discharged Performed By: #### L 500.2500, L100.0100 ####[facility] [address] [place], [address] RDW SD Normal 35.1-43.9 [facility] Comment on above: Result Comment: Canc elled via OM: Order cancelled - Patient discharged Performed By: #### L 500.2500, L100.0100 ####[facility] [address] [place], [address] WBC Normal 4.4-11.0 [facility] Comment on above: Result Comment: Canc elled via OM: Order cancelled - Patient discharged Performed By: #### L 500.2500, L100.0100 ####[facility] [address] [place], [address] Absolute Lymph 2.24 X10 3/uL Normal 0.83-4.51 [facility] Comment on above: Performed By: #### L 503.7505, L500.2500, L100.0100, L501.5200 ####[facility] [address] [place], [address] Absolute Neut 5.8 X10 3/uL Normal 2.0-7.7 [facility] Comment on above: Performed By: #### L 503.7505, L500.2500, L100.0100, L501.5200 ####[facility] [address] [place], [address] Basophils/100 WBC (Bld) 0.1 % Normal 0-1 [facility] Comment on above: Performed By: #### L 503.7505, L500.2500, L100.0100, L501.5200 ####[facility] [address] [place], [address] Eosinophils/100 WBC (Bld) 2.8 % Normal 0-5 [facility] Comment on above: Performed By: #### L 503.7505, L500.2500, L100.0100, L501.5200 ####[facility] [address] [place], [address] Erythrocyte distribution width (RBC) [Ratio] 15.9 % High 11.6-14.6 [facility] Comment on above: Performed By: #### L 503.7505, L500.2500, L100.0100, L501.5200 ####[facility] [address] [place], [address] Hematocrit (Bld) [Volume fraction] 37.9 % Normal 37-47 [facility] Comment on above: Performed By: #### L 503.7505, L500.2500, L100.0100, L501.5200 ####[facility] [address] [place], [address] Hemoglobin (Bld) [Mass/Vol] 11.8 g/dL Low 12.0-15.0 [facility] Comment on above: Performed By: #### L 503.7505, L500.2500, L100.0100, L501.5200 ####[facility] [address] [place], [address] IG% 0.300 Normal 0.0-0.9 [facility] Comment on above: Result Comment: IG% - Immature Granulocytes (promyelocytes, myelocytes andmetamyelocytes) > 1% indicates that a LEFT SHIFT is Present. Performed By: #### L 503.7505, L500.2500, L100.0100, L501.5200 ####[facility] [address] [place], [address] Lymphocytes/100 WBC (Bld) 25.1 % Normal 19-41 [facility] Comment on above: Performed By: #### L 503.7505, L500.2500, L100.0100, L501.5200 ####[facility] [address] [place], [address] MCH (RBC) [Entitic mass] 27.3 pg Normal 27.0-32.0 [facility] Comment on above: Performed By: #### L 503.7505, L500.2500, L100.0100, L501.5200 ####[facility] [address] [place], [address] MCHC (RBC) [Mass/Vol] 31.1 g/dL Low 32-36 [facility] Comment on above: Performed By: #### L 503.7505, L500.2500, L100.0100, L501.5200 ####[facility] [address] [place], [address] MCV (RBC) [Entitic vol] 87.5 fL Normal 81-99 [facility] Comment on above: Performed By: #### L 503.7505, L500.2500, L100.0100, L501.5200 ####[facility] [address] [place], [address] Monocytes/100 WBC (Bld) 6.7 % Normal 0-10 [facility] Comment on above: Performed By: #### L 503.7505, L500.2500, L100.0100, L501.5200 ####[facility] [address] [place], [address] Neutrophils/100 WBC (Bld) 65.0 % Normal 47-70 [facility] Comment on above: Performed By: #### L 503.7505, L500.2500, L100.0100, L501.5200 ####[facility] [address] [place], [address] Nucleated RBC (Bld) [#/Vol] 0 10*3/uL Normal 0-5 [facility] Comment on above: Performed By: #### L 503.7505, L500.2500, L100.0100, L501.5200 ####[facility] [address] [place], [address] Platelet mean volume (Bld) [Entitic vol] 10.8 fL Normal 6.2-12.0 [facility] Comment on above: Performed By: #### L 503.7505, L500.2500, L100.0100, L501.5200 ####[facility] [address] [place], [address] Platelets (Bld) [#/Vol] 247 10*3/uL Normal 150-450 [facility] Comment on above: Performed By: #### L 503.7505, L500.2500, L100.0100, L501.5200 ####[facility] [address] [place], [address] RBC (Bld) [#/Vol] 4.33 10*6/uL Normal 4.2-5.4 [facility] Comment on above: Performed By: #### L 503.7505, L500.2500, L100.0100, L501.5200 ####[facility] [address] [place], [address] RDW SD 51.0 fl High 35.1-43.9 [facility] Comment on above: Performed By: #### L 503.7505, L500.2500, L100.0100, L501.5200 ####[facility] [address] [place], [address] WBC (Bld) [#/Vol] 8.9 10*3/uL Normal 4.4-11.0 [facility] Comment on above: Performed By: #### L 503.7505, L500.2500, L100.0100, L501.5200 ####[facility] [address] [place], [address] Carbon dioxide, total [Moles /volume] in Central venous bloodOrdered By: Jg Bryan on 01-26-2025 CO2 [Moles/Vol] 27.1 mmol/L 21.0-32.0 [facility] Chest PA and Lateralon 01-26 Chest PA and Lateral Normal [facility] Chloride assayOrdered By: Matilde Bryan on 01-26-2025 Chloride [Moles/Vol] 104 mmol/L 98-108 [facility] Emergency Department Summary on 01-26-2025 Emergency Department Summary Normal [facility] Eosinophil percentageOrdered By: Jg Bryan on 01-26-2025 Eosinophils/100 WBC (Bld) 2.8 % 0-5 [facility] Erythrocyte distribution wid th ratioOrdered By: Jg Bryan on 01-26-2025 Erythrocyte distribution width (RBC) [Ratio] 15.9 % High 11.6-14.6 [facility] Erythrocyte distribution wid th standard deviationOrdered By: Jg Bryan on 01-26-2025 Erythrocyte distribution width (RBC) [Ratio] 51.0 fl High 35.1-43.9 [facility] Glomerular filtration rate ( GFR) estimation/1.73 sq m using serum, plasma, or whole bOrdered By: Jg Bryan on 01-26-2025 GFR/1.73 sq M.predicted among non-blacks MDRD (S/P/Bld) [Vol rate/Area] 47 mL/min/{1.73_m2} Low >60 [facility] Hematocrit Auto (Bld) [Volum e fraction]Ordered By: Jg Bryan on 01-26-2025 Hematocrit (Bld) [Volume fraction] 37.9 % 37-47 [facility] Hemoglobin measurementOrdere d By: Jg Bryan on 01-26-2025 Hemoglobin (Bld) [Mass/Vol] 11.8 g/dL Low 12.0-15.0 [facility] Immature granulocytes/100 WB C Auto (Bld)Ordered By: Jg Bryan on 01-26-2025 Immature granulocytes/100 WBC (Bld) 0.300 % 0.0-0.9 [facility] L503.7505on 01-26-2025 Natriuretic peptide B (Bld) [Mass/Vol] 3334 pg/mL High <=1800 [facility] Comment on above: Result Comment: Hear t Failure Unlikely: < 300 pg/mLHeart Failure Likely< 50 Years: > 450 pg/mL50-75 Years: > 900 pg/mL>75 Years: > 1800 pg/mL Performed By: #### L 503.7505, L500.2500, L100.0100, L501.5200 ####[facility] [address] [place], [address] MCV (mean corpuscular volume ) determinationOrdered By: Jg Bryan on 01-26-2025 MCV (RBC) [Entitic vol] 87.5 fL 81-99 [facility] Magnesiumon 01-26-2025 Magnesium [Mass/Vol] 2.7 mg/dL High 1.5-2.2 [facility] Comment on above: Performed By: #### L 503.7505, L500.2500, L100.0100, L501.5200 ####[facility] [address], [address] Magnesium measurement (mass/ volume)Ordered By: Jg Bryan on 01-26-2025 Magnesium (Unsp spec) [Mass/Vol] 2.7 mg/dL High 1.5-2.2 [facility] Mean corpuscular hemoglobin (MCH) determinationOrdered By: Jg Bryan on 01-26-2025 MCH (RBC) [Entitic mass] 27.3 pg 27.0-32.0 [facility] Monocyte percentageOrdered B y: Jg Bryan on 01-26-2025 Monocytes/100 WBC (Bld) 6.7 % 0-10 [facility] Natriuretic peptide.B prohor hayley N-Terminal [Mass/volume] in Serum or PlasmaOrdered By: Jg Bryan on 01-26-2025 Natriuretic peptide.B prohormone N-Terminal [Mass/Vol] 3334 pg/mL High <1800 [facility] Neutrophil percentageOrdered By: Jg Bryan on 01-26-2025 Neutrophils/100 WBC (Bld) 65.0 % 47-70 [facility] Platelet countOrdered By: Matilde Bryan on 01-26-2025 Platelets (Bld) [#/Vol] 247 10*3/uL 150-450 [facility] Potassium measurement (mass/ volume)Ordered By: Jg Bryan on 01-26-2025 Potassium (Unsp spec) [Mass/Vol] 4.1 mmol/L 3.3-5.1 [facility] RBC Auto (Bld) [#/Vol]Ordere d By: Jg Bryan on 01-26-2025 RBC (Bld) [#/Vol] 4.33 10*6/uL 4.2-5.4 [facility] Serum creatinine measurement (mass/volume)Ordered By: Jg Bryan on 01-26-2025 Creatinine [Mass/Vol] 1.16 mg/dL 0.70-1.20 [facility] Serum glucose measurement (m ass/volume)Ordered By: Jg Bryan on 01-26-2025 Glucose [Mass/Vol] 211 mg/dL High 70-99 [facility] Serum or plasma calcium melanie urement (mass/volume)Ordered By: Jg Bryan on 01-26-2025 Calcium [Mass/Vol] 10.2 mg/dL 7.6-11.0 [facility] Serum or plasma urea nitroge n measurement (mass/volume)Ordered By: Jg Bryan on 01-26-2025 Urea nitrogen [Mass/Vol] 35 mg/dL High 4-19 [facility] Sodium levelOrdered By: Cosme Bryan on 01-26-2025 Sodium [Moles/Vol] 141 mmol/L 133-145 [facility] White blood cell (WBC) count Ordered By: Jg Bryan on 01-26-2025 WBC (Bld) [#/Vol] 8.9 10*3/uL 4.4-11.0 [facility] Basic Metabolic Profile (BMP )on 01-25-2025 BUN Normal 4- [facility] Comment on above: Result Comment: Canc elled via OM: Order cancelled - Patient discharged Performed By: #### L 100.0100, L500.2500 ####[facility] [address] [place], [place], [id number] BUN/CRE Normal 10- [facility] Comment on above: Result Comment: Canc elled via OM: Order cancelled - Patient discharged Performed By: #### L 100.0100, L500.2500 ####[facility] [address] [place], [address] Calcium Normal 7.6-11.0 [facility] Comment on above: Result Comment: Canc elled via OM: Order cancelled - Patient discharged Performed By: #### L 100.0100, L500.2500 ####[facility] [address] [place], [address] CL Normal 98-108 [facility] Comment on above: Result Comment: Canc elled via OM: Order cancelled - Patient discharged Performed By: #### L 100.0100, L500.2500 ####[facility] [address] [place], [address] CO2 Normal 21.0-32.0 [facility] Comment on above: Result Comment: Canc elled via OM: Order cancelled - Patient discharged Performed By: #### L 100.0100, L500.2500 ####[facility] [address] [place], [address] CREAT,SERUM Normal 0.70-1.20 [facility] Comment on above: Result Comment: Canc elled via OM: Order cancelled - Patient discharged Performed By: #### L 100.0100, L500.2500 ####[facility] [address] [place], [address] eGFR Normal >60 [facility] Comment on above: Result Comment: Canc elled via OM: Order cancelled - Patient discharged Performed By: #### L 100.0100, L500.2500 ####[facility] [address] [place], [address] GAP Normal 5-15 [facility] Comment on above: Result Comment: Canc elled via OM: Order cancelled - Patient discharged Performed By: #### L 100.0100, L500.2500 ####[facility] [address] [place], [address] GLU Normal 70-99 [facility] Comment on above: Result Comment: Canc elled via OM: Order cancelled - Patient discharged Performed By: #### L 100.0100, L500.2500 ####[facility] [address] [place], [address] Potassium Normal 3.3-5.1 [facility] Comment on above: Result Comment: Canc elled via OM: Order cancelled - Patient discharged Performed By: #### L 100.0100, L500.2500 ####[facility] [address] [place], [address] Basic Metabolic Profile (BMP) Normal 133-145 [facility] Comment on above: Result Comment: Canc elled via OM: Order cancelled - Patient discharged Performed By: #### L 100.0100, L500.2500 ####[facility] [address] [place], [address] CBC W/Diff, Automatedon 05-2 Absolute Neut Normal 2.0-7.7 [facility] Comment on above: Result Comment: Canc elled via OM: Order cancelled - Patient discharged Performed By: #### L 100.0100, L500.2500 ####[facility] [address] [place], [address] HCT Normal 37-47 [facility] Comment on above: Result Comment: Canc elled via OM: Order cancelled - Patient discharged Performed By: #### L 100.0100, L500.2500 ####[facility] [address] [place], [address] HGB Normal 12.0-15.0 [facility] Comment on above: Result Comment: Canc elled via OM: Order cancelled - Patient discharged Performed By: #### L 100.0100, L500.2500 ####[facility] [address] [place], [address] MCH Normal 27.0-32.0 [facility] Comment on above: Result Comment: Canc elled via OM: Order cancelled - Patient discharged Performed By: #### L 100.0100, L500.2500 ####[facility] [address] [place], [address] MCHC Normal 32-36 [facility] Comment on above: Result Comment: Canc elled via OM: Order cancelled - Patient discharged Performed By: #### L 100.0100, L500.2500 ####[facility] [address] [place], [address] MCV Normal 81-99 [facility] Comment on above: Result Comment: Canc elled via OM: Order cancelled - Patient discharged Performed By: #### L 100.0100, L500.2500 ####[facility] [address] [place], [address] NEUT% Normal 47-70 [facility] Comment on above: Result Comment: Canc elled via OM: Order cancelled - Patient discharged Performed By: #### L 100.0100, L500.2500 ####[facility] [address] [place], [address] PLT Normal 150-450 [facility] Comment on above: Result Comment: Canc elled via OM: Order cancelled - Patient discharged Performed By: #### L 100.0100, L500.2500 ####[facility] [address] [place], [address] RBC Normal 4.2-5.4 [facility] Comment on above: Result Comment: Canc elled via OM: Order cancelled - Patient discharged Performed By: #### L 100.0100, L500.2500 ####[facility] [address] [place], [address] RDW CV Normal 11.6-14.6 [facility] Comment on above: Result Comment: Canc elled via OM: Order cancelled - Patient discharged Performed By: #### L 100.0100, L500.2500 ####[facility] [address] [place], [address] RDW SD Normal 35.1-43.9 [facility] Comment on above: Result Comment: Canc elled via OM: Order cancelled - Patient discharged Performed By: #### L 100.0100, L500.2500 ####[facility] [address] [place], [address] WBC Normal 4.4-11.0 [facility] Comment on above: Result Comment: Canc elled via OM: Order cancelled - Patient discharged Performed By: #### L 100.0100, L500.2500 ####[facility] [address] [place], [address] Culture, Blood (WB)on 2024 CUB Blood cultures x2, from two different sites No growth in 5 days. Normal [facility] Comment on above: Performed By: #### M 200.1000 ####[facility] [address] [place], [address] Performed By: #### M 200.1000, L503.6005 ####[facility] [address] [place], [address] Performed By: #### L 100.0100, L300.3900, L501.4021, L503.6005, L500.4050, L300.4310, M200.1000 ####[facility] [address] [place], [address] Absolute lymphocyte countOrd ered By: Melba Hartmann on 01-24-2025 Lymphocytes Auto (Unsp spec) [#/Vol] 2.19 10*3/uL 0.83-4.51 [facility] Anion gap in Serum or Plasma Ordered By: Melba Hartmann on 01-24-2025 Anion gap [Moles/Vol] 12 mmol/L 5-15 [facility] Automated lymphocyte count a s percentage of total leukocytesOrdered By: Melba Mikhailjanene on 01-24-2025 Lymphocytes/100 WBC Auto (Unsp spec) 19.3 % - [facility] BUN/creatinine ratioOrdered By: Melbanereida Hartmann on 01-24-2025 Urea nitrogen/Creatinine [Mass ratio] 35.2 mg/mg High 06-19 [facility] Basic Metabolic Profile (BMP )on 01-24-2025 BUN/CRE 35.2 RATIO High 06-19 [facility] Comment on above: Performed By: #### L 500.2500, L100.0100 ####[facility] [address] [place], [address] Calcium [Mass/Vol] 10.1 mg/dL Normal 7.6-11.0 [facility] Comment on above: Performed By: #### L 500.2500, L100.0100 ####[facility] [address] [place], [address] Chloride [Moles/Vol] 102 mmol/L Normal 98-108 [facility] Comment on above: Performed By: #### L 500.2500, L100.0100 ####[facility] [address] [place], [address] CO2 [Moles/Vol] 23.7 mmol/L Normal 21.0-32.0 [facility] Comment on above: Performed By: #### L 500.2500, L100.0100 ####[facility] [address] [place], [address] Creatinine [Mass/Vol] 1.31 mg/dL High 0.70-1.20 [facility] Comment on above: Performed By: #### L 500.2500, L100.0100 ####[facility] [address] [place], [address] ECRCL 33.41 ml/min Low 50-250 [facility] Comment on above: Performed By: #### L 500.2500, L100.0100 ####[facility] [address] [place], [address] GAP 12 Normal 5-15 [facility] Comment on above: Performed By: #### L 500.2500, L100.0100 ####[facility] [address] [place], [address] GFR/1.73 sq M.predicted among non-blacks MDRD (S/P/Bld) [Vol rate/Area] 41 mL/min/{1.73_m2} Low >60 [facility] Comment on above: Result Comment: mL/m in/1.73m2 CKD-EPI Creatinine Equation (2020) Performed By: #### L 500.2500, L100.0100 ####[facility] [address] [place], [address] Glucose [Mass/Vol] 133 mg/dL High 70-99 [facility] Comment on above: Performed By: #### L 500.2500, L100.0100 ####[facility] [address] [place], [address] Potassium [Moles/Vol] 3.5 mmol/L Normal 3.3-5.1 [facility] Comment on above: Performed By: #### L 500.2500, L100.0100 ####[facility] [address] [place], [address] Sodium [Moles/Vol] 138 mmol/L Normal 133-145 [facility] Comment on above: Performed By: #### L 500.2500, L100.0100 ####[facility] [address] [place], [address] Urea nitrogen [Mass/Vol] 46 mg/dL High 4-19 [facility] Comment on above: Performed By: #### L 500.2500, L100.0100 ####[facility] [address] [place], [address] Basophil percentageOrdered B y: Melba Hartmann on 01-24-2025 Basophils/100 WBC (Bld) 0.2 % 0-1 [facility] Bedside Glucoseon 01-24-2025 FINGERSTICK GLU 167 mg/dL High 74-106 [facility] Comment on above: Result Comment: KATARINA GEMENT OF PATIENT CARE PER NURSING PROTOCOL Performed By: #### L 501.080 ####[facility] [address] [place], [address] FINGERSTICK GLU 143 mg/dL High 74-106 [facility] Comment on above: Result Comment: KATARINA MILLERENT OF PATIENT CARE PER NURSING PROTOCOL Performed By: #### L 501.080 ####[facility] [address] [place], [address] CBC W/Diff, Automatedon 12-30 Absolute Lymph 2.19 X10 3/uL Normal 0.83-4.51 [facility] Comment on above: Performed By: #### L 500.2500, L100.0100 ####[facility] [address] [place], [address] Absolute Neut 8.2 X10 3/uL High 2.0-7.7 [facility] Comment on above: Performed By: #### L 500.2500, L100.0100 ####[facility] [address] [place], [address] Basophils/100 WBC (Bld) 0.2 % Normal 0-1 [facility] Comment on above: Performed By: #### L 500.2500, L100.0100 ####[facility] [address] [place], [address] Eosinophils/100 WBC (Bld) 0.2 % Normal 0-5 [facility] Comment on above: Performed By: #### L 500.2500, L100.0100 ####[facility] [address] [place], [address] Erythrocyte distribution width (RBC) [Ratio] 15.8 % High 11.6-14.6 [facility] Comment on above: Performed By: #### L 500.2500, L100.0100 ####[facility] [address] [place], [address] Hematocrit (Bld) [Volume fraction] 40.7 % Normal 37-47 [facility] Comment on above: Performed By: #### L 500.2500, L100.0100 ####[facility] [address] [place], [address] Hemoglobin (Bld) [Mass/Vol] 12.7 g/dL Normal 12.0-15.0 [facility] Comment on above: Performed By: #### L 500.2500, L100.0100 ####[facility] [address] [place], [address] IG% 0.400 Normal 0.0-0.9 [facility] Comment on above: Result Comment: IG% - Immature Granulocytes (promyelocytes, myelocytes andmetamyelocytes) > 1% indicates that a LEFT SHIFT is Present. Performed By: #### L 500.2500, L100.0100 ####[facility] [address] [place], [address] Lymphocytes/100 WBC (Bld) 19.3 % Normal 19-41 [facility] Comment on above: Performed By: #### L 500.2500, L100.0100 ####[facility] [address] [place], [address] MCH (RBC) [Entitic mass] 27.4 pg Normal 27.0-32.0 [facility] Comment on above: Performed By: #### L 500.2500, L100.0100 ####[facility] [address] [place], [address] MCHC (RBC) [Mass/Vol] 31.2 g/dL Low 32-36 [facility] Comment on above: Performed By: #### L 500.2500, L100.0100 ####[facility] [address] [place], [address] MCV (RBC) [Entitic vol] 87.7 fL Normal 81-99 [facility] Comment on above: Performed By: #### L 500.2500, L100.0100 ####[facility] [address] [place], [address] Monocytes/100 WBC (Bld) 7.4 % Normal 0-10 [facility] Comment on above: Performed By: #### L 500.2500, L100.0100 ####[facility] [address] [place], [address] Neutrophils/100 WBC (Bld) 72.5 % High 47-70 [facility] Comment on above: Performed By: #### L 500.2500, L100.0100 ####[facility] [address] [place], [address] Nucleated RBC (Bld) [#/Vol] 0 10*3/uL Normal 0-5 [facility] Comment on above: Performed By: #### L 500.2500, L100.0100 ####[facility] [address] [place], [address] Platelet mean volume (Bld) [Entitic vol] 10.9 fL Normal 6.2-12.0 [facility] Comment on above: Performed By: #### L 500.2500, L100.0100 ####[facility] [address] [place], [address] Platelets (Bld) [#/Vol] 297 10*3/uL Normal 150-450 [facility] Comment on above: Performed By: #### L 500.2500, L100.0100 ####[facility] [address] [place], [address] RBC (Bld) [#/Vol] 4.64 10*6/uL Normal 4.2-5.4 [facility] Comment on above: Performed By: #### L 500.2500, L100.0100 ####[facility] [address] [place], [address] RDW SD 50.9 fl High 35.1-43.9 [facility] Comment on above: Performed By: #### L 500.2500, L100.0100 ####[facility] [address] [place], [address] WBC (Bld) [#/Vol] 11.3 10*3/uL High 4.4-11.0 [facility] Comment on above: Performed By: #### L 500.2500, L100.0100 ####[facility] [address] [place], [address] Carbon dioxide, total [Moles /volume] in Central venous bloodOrdered By: Melba Hartmann on 01-24-2025 CO2 [Moles/Vol] 23.7 mmol/L 21.0-32.0 [facility] Chloride assayOrdered By: Marifer Hartmann on 01-24-2025 Chloride [Moles/Vol] 102 mmol/L 98-108 [facility] Discharge Instructionon 12-30 Discharge Instruction Normal [facility] Electrocardiogram reportOrde red By: Marcelina Soto on 01-24-2025 EKG study [facility] Work Phone: [phone] Eosinophil percentageOrdered By: Melba Hartmann on 01-24-2025 Eosinophils/100 WBC (Bld) 0.2 % 0-5 [facility] Erythrocyte distribution wid th ratioOrdered By: Melba Hartmann on 01-24-2025 Erythrocyte distribution width (RBC) [Ratio] 15.8 % High 11.6-14.6 [facility] Erythrocyte distribution wid th standard deviationOrdered By: Melba Hartmann on 01-24-2025 Erythrocyte distribution width (RBC) [Ratio] 50.9 fl High 35.1-43.9 [facility] Glomerular filtration rate ( GFR) estimation/1.73 sq m using serum, plasma, or whole bOrdered By: Melba Hartmann on 01-24-2025 GFR/1.73 sq M.predicted among non-blacks MDRD (S/P/Bld) [Vol rate/Area] 41 mL/min/{1.73_m2} Low >60 [facility] Gl[facility] deOrdered By: Melba Hartmann on 01-24-2025 Glucose [Mass/Vol] 167 mg/dL High 74-106 [facility] Hematocrit Auto (Bld) [Volum e fraction]Ordered By: Melba Hartmann on 01-24-2025 Hematocrit (Bld) [Volume fraction] 40.7 % 37-47 [facility] Hemoglobin measurementOrdere d By: Melba Hartmann on 01-24-2025 Hemoglobin (Bld) [Mass/Vol] 12.7 g/dL 12.0-15.0 [facility] Immature granulocytes/100 WB C Auto (Bld)Ordered By: Melba Hartmann 01-24-2025 Immature granulocytes/100 WBC (Bld) 0.400 % 0.0-0.9 [facility] MCV (mean corpuscular volume ) determinationOrdered By: Melba Hartmann 01-24-2025 MCV (RBC) [Entitic vol] 87.7 fL 81-99 [facility] Mean corpuscular hemoglobin (MCH) determinationOrdered By: Melba Hartmann 01-24-2025 MCH (RBC) [Entitic mass] 27.4 pg 27.0-32.0 [facility] Monocyte percentageOrdered B y: Melba Hartmann on 01-24-2025 Monocytes/100 WBC (Bld) 7.4 % 0-10 [facility] Neutrophil percentageOrdered By: Melba Hartmann 01-24-2025 Neutrophils/100 WBC (Bld) 72.5 % High 47-70 [facility] Platelet countOrdered By: Marifer Hartmann on 01-24-2025 Platelets (Bld) [#/Vol] 297 10*3/uL 150-450 [facility] Potassium measurement (mass/ volume)Ordered By: Melba Hartmann on 01-24-2025 Potassium (Unsp spec) [Mass/Vol] 3.5 mmol/L 3.3-5.1 [facility] RBC Auto (Bld) [#/Vol]Ordere d By: Melba Hartmann on 01-24-2025 RBC (Bld) [#/Vol] 4.64 10*6/uL 4.2-5.4 [facility] Serum creatinine measurement (mass/volume)Ordered By: Melba Hartmann on 01-24-2025 Creatinine [Mass/Vol] 1.31 mg/dL High 0.70-1.20 [facility] Serum glucose measurement (m ass/volume)Ordered By: Melba Hartmann on 01-24-2025 Glucose [Mass/Vol] 133 mg/dL High 70-99 [facility] Serum or plasma calcium melanie urement (mass/volume)Ordered By: Melba Hartmann on 01-24-2025 Calcium [Mass/Vol] 10.1 mg/dL 7.6-11.0 [facility] Serum or plasma urea nitroge n measurement (mass/volume)Ordered By: Melba Hartmann on 01-24-2025 Urea nitrogen [Mass/Vol] 46 mg/dL High 4-19 [facility] Sodium levelOrdered By: Melba Hartmann on 01-24-2025 Sodium [Moles/Vol] 138 mmol/L 133-145 [facility] White blood cell (WBC) count Ordered By: Melba Hartmann on 01-24-2025 WBC (Bld) [#/Vol] 11.3 10*3/uL High 4.4-11.0 [facility] Basic Metabolic Profile (BMP )on 01-23-2025 BUN/CRE 33.0 RATIO High 10-20 [facility] Comment on above: Performed By: #### L 100.0100, L500.2500 ####[facility] [address] [place], [address] Calcium [Mass/Vol] 10.8 mg/dL Normal 7.6-11.0 [facility] Comment on above: Performed By: #### L 100.0100, L500.2500 ####[facility] [address] [place], [address] Chloride [Moles/Vol] 98 mmol/L Normal 98-108 [facility] Comment on above: Performed By: #### L 100.0100, L500.2500 ####[facility] [address] [place], [address] CO2 [Moles/Vol] 25.4 mmol/L Normal 21.0-32.0 [facility] Comment on above: Performed By: #### L 100.0100, L500.2500 ####[facility] [address] [place], [address] Creatinine [Mass/Vol] 1.32 mg/dL High 0.70-1.20 [facility] Comment on above: Performed By: #### L 100.0100, L500.2500 ####[facility] [address] [place], [address] ECRCL 32.84 ml/min Low 50-250 [facility] Comment on above: Performed By: #### L 100.0100, L500.2500 ####[facility] [address] [place], [address] GAP 12 Normal 5-15 [facility] Comment on above: Performed By: #### L 100.0100, L500.2500 ####[facility] [address] [place], [address] GFR/1.73 sq M.predicted among non-blacks MDRD (S/P/Bld) [Vol rate/Area] 41 mL/min/{1.73_m2} Low >60 [facility] Comment on above: Result Comment: mL/m in/1.73m2 CKD-EPI Creatinine Equation (2020) Performed By: #### L 100.0100, L500.2500 ####[facility] [address] [place], [address] Glucose [Mass/Vol] 200 mg/dL High 70-99 [facility] Comment on above: Performed By: #### L 100.0100, L500.2500 ####[facility] [address] [place], [address] Potassium [Moles/Vol] 5.2 mmol/L High 3.3-5.1 [facility] Comment on above: Result Comment: Hemo lysis present, Results??could be affected.?? Performed By: #### L 100.0100, L500.2500 ####[facility] [address] [place], [address] Sodium [Moles/Vol] 135 mmol/L Normal 133-145 [facility] Comment on above: Performed By: #### L 100.0100, L500.2500 ####[facility] [address] [place], [address] Urea nitrogen [Mass/Vol] 44 mg/dL High 4-19 [facility] Comment on above: Performed By: #### L 100.0100, L500.2500 ####[facility] [address] [place], [address] Bedside Glucoseon 01-23-2025 FINGERSTICK GLU 294 mg/dL High 74-106 [facility] Comment on above: Result Comment: KATARINA GEMENT OF PATIENT CARE PER NURSING PROTOCOL Performed By: #### L 501.080 ####[facility] [address] [place], [address] FINGERSTICK GLU 314 mg/dL High 74-106 [facility] Comment on above: Result Comment: KATARINA GEMENT OF PATIENT CARE PER NURSING PROTOCOL Performed By: #### L 501.080 ####[facility] [address] [place], [address] FINGERSTICK GLU 291 mg/dL High 74-106 [facility] Comment on above: Result Comment: KATARINA GEMENT OF PATIENT CARE PER NURSING PROTOCOL Performed By: #### L 501.080 ####[facility] [address] [place], [address] FINGERSTICK GLU 214 mg/dL High 74-106 [facility] Comment on above: Result Comment: KATARINA GEMENT OF PATIENT CARE PER NURSING PROTOCOL Performed By: #### L 501.080 ####[facility] [address] [place], [address] CBC W/Diff, Automatedon 05-2 Absolute Lymph 0.74 X10 3/uL Low 0.83-4.51 [facility] Comment on above: Performed By: #### L 100.0100, L500.2500 ####[facility] [address] [place], [address] Absolute Neut 10.9 X10 3/uL High 2.0-7.7 [facility] Comment on above: Performed By: #### L 100.0100, L500.2500 ####[facility] [address] [place], [address] Basophils/100 WBC (Bld) 0.1 % Normal 0-1 [facility] Comment on above: Performed By: #### L 100.0100, L500.2500 ####[facility] [address] [place], [address] Eosinophils/100 WBC (Bld) 0.0 % Normal 0-5 [facility] Comment on above: Performed By: #### L 100.0100, L500.2500 ####[facility] [address] [place], [address] Erythrocyte distribution width (RBC) [Ratio] 15.8 % High 11.6-14.6 [facility] Comment on above: Performed By: #### L 100.0100, L500.2500 ####[facility] [address] [place], [address] Hematocrit (Bld) [Volume fraction] 41.8 % Normal 37-47 [facility] Comment on above: Performed By: #### L 100.0100, L500.2500 ####[facility] [address] [place], [address] Hemoglobin (Bld) [Mass/Vol] 13.1 g/dL Normal 12.0-15.0 [facility] Comment on above: Performed By: #### L 100.0100, L500.2500 ####[facility] [address] [place], [address] IG% 0.200 Normal 0.0-0.9 [facility] Comment on above: Result Comment: IG% - Immature Granulocytes (promyelocytes, myelocytes andmetamyelocytes) > 1% indicates that a LEFT SHIFT is Present. Performed By: #### L 100.0100, L500.2500 ####[facility] [address] [place], [address] Lymphocytes/100 WBC (Bld) 6.2 % Low 19-41 [facility] Comment on above: Performed By: #### L 100.0100, L500.2500 ####[facility] [address] [place], [address] MCH (RBC) [Entitic mass] 27.3 pg Normal 27.0-32.0 [facility] Comment on above: Performed By: #### L 100.0100, L500.2500 ####[facility] [address] [place], [address] MCHC (RBC) [Mass/Vol] 31.3 g/dL Low 32-36 [facility] Comment on above: Performed By: #### L 100.0100, L500.2500 ####[facility] [address] [place], [address] MCV (RBC) [Entitic vol] 87.1 fL Normal 81-99 [facility] Comment on above: Performed By: #### L 100.0100, L500.2500 ####[facility] [address] [place], [address] Monocytes/100 WBC (Bld) 2.7 % Normal 0-10 [facility] Comment on above: Performed By: #### L 100.0100, L500.2500 ####[facility] [address] [place], [address] Neutrophils/100 WBC (Bld) 90.8 % High 47-70 [facility] Comment on above: Performed By: #### L 100.0100, L500.2500 ####[facility] [address] [place], [address] Nucleated RBC (Bld) [#/Vol] 0 10*3/uL Normal 0-5 [facility] Comment on above: Performed By: #### L 100.0100, L500.2500 ####[facility] [address] [place], [address] Platelet mean volume (Bld) [Entitic vol] 11.6 fL Normal 6.2-12.0 [facility] Comment on above: Performed By: #### L 100.0100, L500.2500 ####[facility] [address] [place], [address] Platelets (Bld) [#/Vol] 322 10*3/uL Normal 150-450 [facility] Comment on above: Performed By: #### L 100.0100, L500.2500 ####[facility] [address] [place], [address] RBC (Bld) [#/Vol] 4.80 10*6/uL Normal 4.2-5.4 [facility] Comment on above: Performed By: #### L 100.0100, L500.2500 ####[facility] [address] [place], [address] RDW SD 50.2 fl High 35.1-43.9 [facility] Comment on above: Performed By: #### L 100.0100, L500.2500 ####[facility] [address] [place], [address] WBC (Bld) [#/Vol] 12.0 10*3/uL High 4.4-11.0 [facility] Comment on above: Performed By: #### L 100.0100, L500.2500 ####[facility] [address] [place], [address] Basic Metabolic Profile (BMP )on 01-22-2025 BUN/CRE 29.2 RATIO High 10-20 [facility] Comment on above: Performed By: #### L 500.2500, L100.0100 ####[facility] [address] [place], [address] Calcium [Mass/Vol] 10.2 mg/dL Normal 7.6-11.0 [facility] Comment on above: Performed By: #### L 500.2500, L100.0100 ####[facility] [address] [place], [address] Chloride [Moles/Vol] 99 mmol/L Normal 98-108 [facility] Comment on above: Performed By: #### L 500.2500, L100.0100 ####[facility] [address] [place], [address] CO2 [Moles/Vol] 27.0 mmol/L Normal 21.0-32.0 [facility] Comment on above: Performed By: #### L 500.2500, L100.0100 ####[facility] [address] [place], [address] Creatinine [Mass/Vol] 1.07 mg/dL Normal 0.70-1.20 [facility] Comment on above: Performed By: #### L 500.2500, L100.0100 ####[facility] [address] [place], [address] ECRCL 40.54 ml/min Low 50-250 [facility] Comment on above: Performed By: #### L 500.2500, L100.0100 ####[facility] [address] [place], [address] GAP 10 Normal 5-15 [facility] Comment on above: Performed By: #### L 500.2500, L100.0100 ####[facility] [address] [place], [address] GFR/1.73 sq M.predicted among non-blacks MDRD (S/P/Bld) [Vol rate/Area] 52 mL/min/{1.73_m2} Low >60 [facility] Comment on above: Result Comment: mL/m in/1.73m2 CKD-EPI Creatinine Equation (2020) Performed By: #### L 500.2500, L100.0100 ####[facility] [address] [place], [address] Glucose [Mass/Vol] 160 mg/dL High 70-99 [facility] Comment on above: Performed By: #### L 500.2500, L100.0100 ####[facility] [address] [place], [address] Potassium [Moles/Vol] 4.8 mmol/L Normal 3.3-5.1 [facility] Comment on above: Performed By: #### L 500.2500, L100.0100 ####[facility] [address] [place], [address] Sodium [Moles/Vol] 136 mmol/L Normal 133-145 [facility] Comment on above: Performed By: #### L 500.2500, L100.0100 ####[facility] [address] [place], [address] Urea nitrogen [Mass/Vol] 31 mg/dL High 4-19 [facility] Comment on above: Performed By: #### L 500.2500, L100.0100 ####[facility] [address] [place], [address] Bedside Glucoseon 01-22-2024 FINGERSTICK GLU 310 mg/dL High 74-106 [facility] Comment on above: Result Comment: KATARINA GEMENT OF PATIENT CARE PER NURSING PROTOCOL Performed By: #### L 501.080 ####[facility] [address] [place], [address] FINGERSTICK GLU 269 mg/dL High 74-106 [facility] Comment on above: Result Comment: KATARINA GEMENT OF PATIENT CARE PER NURSING PROTOCOL Performed By: #### L 501.080 ####[facility] [address] [place], [address] FINGERSTICK GLU 232 mg/dL High 74-106 [facility] Comment on above: Result Comment: KATARINA GEMENT OF PATIENT CARE PER NURSING PROTOCOL Performed By: #### L 501.080 ####[facility] [address] [place], [address] FINGERSTICK GLU 183 mg/dL High 74-106 [facility] Comment on above: Result Comment: KATARINA GEMENT OF PATIENT CARE PER NURSING PROTOCOL Performed By: #### L 501.080 ####[facility] [address] [place], [address] CBC W/Diff, Automatedon 05-2 Absolute Lymph 0.73 X10 3/uL Low 0.83-4.51 [facility] Comment on above: Performed By: #### L 500.2500, L100.0100 ####[facility] [address] [place], [address] Absolute Neut 11.7 X10 3/uL High 2.0-7.7 [facility] Comment on above: Performed By: #### L 500.2500, L100.0100 ####[facility] [address] [place], [address] Basophils/100 WBC (Bld) 0.0 % Normal 0-1 [facility] Comment on above: Performed By: #### L 500.2500, L100.0100 ####[facility] [address] [place], [address] Eosinophils/100 WBC (Bld) 0.0 % Normal 0-5 [facility] Comment on above: Performed By: #### L 500.2500, L100.0100 ####[facility] [address] [place], [address] Erythrocyte distribution width (RBC) [Ratio] 15.9 % High 11.6-14.6 [facility] Comment on above: Performed By: #### L 500.2500, L100.0100 ####[facility] [address] [place], [address] Hematocrit (Bld) [Volume fraction] 35.6 % Low 37-47 [facility] Comment on above: Performed By: #### L 500.2500, L100.0100 ####[facility] [address] [place], [address] Hemoglobin (Bld) [Mass/Vol] 11.1 g/dL Low 12.0-15.0 [facility] Comment on above: Performed By: #### L 500.2500, L100.0100 ####[facility] [address] [place], [address] IG% 0.500 Normal 0.0-0.9 [facility] Comment on above: Result Comment: IG% - Immature Granulocytes (promyelocytes, myelocytes andmetamyelocytes) > 1% indicates that a LEFT SHIFT is Present. Performed By: #### L 500.2500, L100.0100 ####[facility] [address] [place], [address] Lymphocytes/100 WBC (Bld) 5.7 % Low 19-41 [facility] Comment on above: Performed By: #### L 500.2500, L100.0100 ####[facility] [address] [place], [address] MCH (RBC) [Entitic mass] 27.3 pg Normal 27.0-32.0 [facility] Comment on above: Performed By: #### L 500.2500, L100.0100 ####[facility] [address] [place], [address] MCHC (RBC) [Mass/Vol] 31.2 g/dL Low 32-36 [facility] Comment on above: Performed By: #### L 500.2500, L100.0100 ####[facility] [address] [place], [address] MCV (RBC) [Entitic vol] 87.7 fL Normal 81-99 [facility] Comment on above: Performed By: #### L 500.2500, L100.0100 ####[facility] [address] [place], [address] Monocytes/100 WBC (Bld) 2.4 % Normal 0-10 [facility] Comment on above: Performed By: #### L 500.2500, L100.0100 ####[facility] [address] [place], [address] Neutrophils/100 WBC (Bld) 91.4 % High 47-70 [facility] Comment on above: Performed By: #### L 500.2500, L100.0100 ####[facility] [address] [place], [address] Nucleated RBC (Bld) [#/Vol] 0 10*3/uL Normal 0-5 [facility] Comment on above: Performed By: #### L 500.2500, L100.0100 ####[facility] [address] [place], [address] Platelet mean volume (Bld) [Entitic vol] 11.1 fL Normal 6.2-12.0 [facility] Comment on above: Performed By: #### L 500.2500, L100.0100 ####[facility] [address] [place], [address] Platelets (Bld) [#/Vol] 281 10*3/uL Normal 150-450 [facility] Comment on above: Performed By: #### L 500.2500, L100.0100 ####[facility] [address] [place], [address] RBC (Bld) [#/Vol] 4.06 10*6/uL Low 4.2-5.4 [facility] Comment on above: Performed By: #### L 500.2500, L100.0100 ####[facility] [address] [place], [address] RDW SD 51.3 fl High 35.1-43.9 [facility] Comment on above: Performed By: #### L 500.2500, L100.0100 ####[facility] [address] [place], [address] WBC (Bld) [#/Vol] 12.8 10*3/uL High 4.4-11.0 [facility] Comment on above: Performed By: #### L 500.2500, L100.0100 ####[facility] [address] [place], [address] Urine Cultureon 01-22-2025 URC Normal [facility] Comment on above: Performed By: #### M 100.2200 ####[facility] [address] [place], [address] Basic Metabolic Profile (BMP )on 01-21-2025 BUN/CRE 19.6 RATIO Normal 10-20 [facility] Comment on above: Performed By: #### L 500.2500, L503.7505 ####[facility] [address] [place], [address] Calcium [Mass/Vol] 9.8 mg/dL Normal 7.6-11.0 [facility] Comment on above: Performed By: #### L 500.2500, L503.7505 ####[facility] [address] [place], [address] Chloride [Moles/Vol] 99 mmol/L Normal 98-108 [facility] Comment on above: Performed By: #### L 500.2500, L503.7505 ####[facility] [address] [place], [address] CO2 [Moles/Vol] 24.3 mmol/L Normal 21.0-32.0 [facility] Comment on above: Performed By: #### L 500.2500, L503.7505 ####[facility] [address] [place], [address] Creatinine [Mass/Vol] 1.19 mg/dL Normal 0.70-1.20 [facility] Comment on above: Performed By: #### L 500.2500, L503.7505 ####[facility] [address] [place], [address] ECRCL 36.45 ml/min Low 50-250 [facility] Comment on above: Performed By: #### L 500.2500, L503.7505 ####[facility] [address] [place], [address] GAP 14 Normal 5-15 [facility] Comment on above: Performed By: #### L 500.2500, L503.7505 ####[facility] [address] [place], [address] GFR/1.73 sq M.predicted among non-blacks MDRD (S/P/Bld) [Vol rate/Area] 46 mL/min/{1.73_m2} Low >60 [facility] Comment on above: Result Comment: mL/m in/1.73m2 CKD-EPI Creatinine Equation (2020) Performed By: #### L 500.2500, L503.7505 ####[facility] [address] [place], [address] Glucose [Mass/Vol] 208 mg/dL High 70-99 [facility] Comment on above: Performed By: #### L 500.2500, L503.7505 ####[facility] [address] [place], [address] Potassium [Moles/Vol] 4.0 mmol/L Normal 3.3-5.1 [facility] Comment on above: Performed By: #### L 500.2500, L503.7505 ####[facility] [address] [place], [address] Sodium [Moles/Vol] 138 mmol/L Normal 133-145 [facility] Comment on above: Performed By: #### L 500.2500, L503.7505 ####[facility] [address] [place], [address] Urea nitrogen [Mass/Vol] 23 mg/dL High 4-19 [facility] Comment on above: Performed By: #### L 500.2500, L503.7505 ####[facility] [address] [place], [address] Bedside Glucoseon 01-21-2025 FINGERSTICK GLU 271 mg/dL High 74-106 [facility] Comment on above: Result Comment: KATARINA GEMENT OF PATIENT CARE PER NURSING PROTOCOL Performed By: #### L 501.080 ####[facility] [address] [place], [address] FINGERSTICK GLU 254 mg/dL High 74-106 [facility] Comment on above: Result Comment: KATARINA GEMENT OF PATIENT CARE PER NURSING PROTOCOL Performed By: #### L 501.080 ####[facility] [address] [place], [address] FINGERSTICK GLU 323 mg/dL High 74-106 [facility] Comment on above: Result Comment: KATARINA GEMENT OF PATIENT CARE PER NURSING PROTOCOL Performed By: #### L 501.080 ####[facility] [address] [place], [address] FINGERSTICK GLU 202 mg/dL High 74-106 [facility] Comment on above: Result Comment: KATARINA GEMENT OF PATIENT CARE PER NURSING PROTOCOL Performed By: #### L 501.080 ####[facility] [address] [place], [address] CBC W/Diff, Automatedon 05-2 Absolute Lymph 0.79 X10 3/uL Low 0.83-4.51 [facility] Comment on above: Performed By: #### L 100.0100 ####[facility] [address] [place], [address] Absolute Neut 9.1 X10 3/uL High 2.0-7.7 [facility] Comment on above: Performed By: #### L 100.0100 ####[facility] [address] [place], [address] Basophils/100 WBC (Bld) 0.0 % Normal 0-1 [facility] Comment on above: Performed By: #### L 100.0100 ####[facility] [address] [place], [address] Eosinophils/100 WBC (Bld) 0.0 % Normal 0-5 [facility] Comment on above: Performed By: #### L 100.0100 ####[facility] [address] [place], [address] Erythrocyte distribution width (RBC) [Ratio] 16.0 % High 11.6-14.6 [facility] Comment on above: Performed By: #### L 100.0100 ####[facility] [address] [place], [address] Hematocrit (Bld) [Volume fraction] 35.0 % Low 37-47 [facility] Comment on above: Performed By: #### L 100.0100 ####[facility] [address] [place], [address] Hemoglobin (Bld) [Mass/Vol] 10.8 g/dL Low 12.0-15.0 [facility] Comment on above: Performed By: #### L 100.0100 ####[facility] [address] [place], [address] IG% 0.400 Normal 0.0-0.9 [facility] Comment on above: Result Comment: IG% - Immature Granulocytes (promyelocytes, myelocytes andmetamyelocytes) > 1% indicates that a LEFT SHIFT is Present. Performed By: #### L 100.0100 ####[facility] [address] [place], [address] Lymphocytes/100 WBC (Bld) 7.7 % Low 19-41 [facility] Comment on above: Performed By: #### L 100.0100 ####[facility] [address] [place], [address] MCH (RBC) [Entitic mass] 27.4 pg Normal 27.0-32.0 [facility] Comment on above: Performed By: #### L 100.0100 ####[facility] [address] [place], [address] MCHC (RBC) [Mass/Vol] 30.9 g/dL Low 32-36 [facility] Comment on above: Performed By: #### L 100.0100 ####[facility] [address] [place], [address] MCV (RBC) [Entitic vol] 88.8 fL Normal 81-99 [facility] Comment on above: Performed By: #### L 100.0100 ####[facility] [address] [place], [address] Monocytes/100 WBC (Bld) 3.5 % Normal 0-10 [facility] Comment on above: Performed By: #### L 100.0100 ####[facility] [address] [place], [address] Neutrophils/100 WBC (Bld) 88.4 % High 47-70 [facility] Comment on above: Performed By: #### L 100.0100 ####[facility] [address] [place], [address] Nucleated RBC (Bld) [#/Vol] 0 10*3/uL Normal 0-5 [facility] Comment on above: Performed By: #### L 100.0100 ####[facility] [address] [place], [address] Platelet mean volume (Bld) [Entitic vol] 11.0 fL Normal 6.2-12.0 [facility] Comment on above: Performed By: #### L 100.0100 ####[facility] [address] [place], [address] Platelets (Bld) [#/Vol] 245 10*3/uL Normal 150-450 [facility] Comment on above: Performed By: #### L 100.0100 ####[facility] [address] [place], [address] RBC (Bld) [#/Vol] 3.94 10*6/uL Low 4.2-5.4 [facility] Comment on above: Performed By: #### L 100.0100 ####[facility] [address] [place], [address] RDW SD 51.8 fl High 35.1-43.9 [facility] Comment on above: Performed By: #### L 100.0100 ####[facility] [address] [place], [address] WBC (Bld) [#/Vol] 10.3 10*3/uL Normal 4.4-11.0 [facility] Comment on above: Performed By: #### L 100.0100 ####[facility] [address] [place], [address] Chest 1 View (Portable)on Chest 1 View (Portable) Normal [facility] L503.7505on 01-21-2025 Natriuretic peptide B (Bld) [Mass/Vol] 40418 pg/mL High <=1800 [facility] Comment on above: Result Comment: Hear t Failure Unlikely: < 300 pg/mLHeart Failure Likely< 50 Years: > 450 pg/mL50-75 Years: > 900 pg/mL>75 Years: > 1800 pg/mL Performed By: #### L 500.2500, L503.7505 ####[facility] [address] [place], [address] Natriuretic peptide.B prohor hayley N-Terminal [Mass/volume] in Serum or PlasmaOrdered By: Sandeep Marie on 01-21-2025 Natriuretic peptide.B prohormone N-Terminal [Mass/Vol] 85229 pg/mL High <1800 [facility] 12 Lead EKGon 01-20-2025 12 Lead EKG Normal [facility] Activated partial thrombopla stin time (aPTT) in platelet poor plasma by coagulation aOrdered By: Jeevan Yoder on 01-20-2025 aPTT Coag (PPP) [Time] 26.9 s 24.1-36.2 [facility] Assessment of wrist artery p atency prior to arterial punctureOrdered By: Lucio Borden on 01-20-2025 Arterial patency Wrist artery --pre arterial puncture Positive [facility] Bedside Glucoseon 01-20-2025 FINGERSTICK GLU 265 mg/dL High [facility]106 [facility] Comment on above: Result Comment: KATARINA GEMENT OF PATIENT CARE PER NURSING PROTOCOL Performed By: #### L 501.080 ####[facility] [address] [facility] [address] FINGERSTICK GLU 389 mg/dL High [address] [place] [address] Comment on above: Result Comment: KATARINA GEMENT OF PATIENT CARE PER NURSING PROTOCOL Performed By: #### L 501.080 ####[facility] [address] [place], [address] FINGERSTICK GLU 361 mg/dL High [address] [place] [address] Comment on above: Result Comment: KATARINA GEMENT OF PATIENT CARE PER NURSING PROTOCOL Performed By: #### L 501.080 ####[facility] [address] [place], [address] FINGERSTICK GLU 338 mg/dL High [address] [place] [address] Comment on above: Result Comment: KATARINA GEMENT OF PATIENT CARE PER NURSING PROTOCOL Performed By: #### L 501.080 ####[facility] [address] [place], [address] Bilirubin Test strip Ql (U)O rdered By: Jeevan Yoder on 01-20-2025 Bilirubin Ql (U) Negative Negative [facility] Bilirubin, totalOrdered By: Jeevan Yoder on 01-20-2025 Bilirubin [Mass/Vol] 0.26 mg/dL 0.00-1.30 [facility] Blood Gases by CPSon 025 BARON TEST Positive Normal [facility] Comment on above: Performed By: #### L 9000.0800 ####[facility] [address] [place], [address] Base excess Calc (Bld) [Moles/Vol] 10 mmol/L High -2 to +2 [facility] Comment on above: Performed By: #### L 9000.0800 ####[facility] [address] [place], [address] Blood Gas Type ART Normal [facility] Comment on above: Performed By: #### L 9000.0800 ####[facility] [address] [place], [address] CO2 [Moles/Vol] 37 mmol/L Normal [facility] Comment on above: Performed By: #### L 9000.0800 ####[facility] [address] [place], [address] FI02 30.0 Normal [facility] Comment on above: Performed By: #### L 9000.0800 ####[facility] [address] [place], [address] HCO3 (Bld) [Moles/Vol] 35.5 mmol/L High 22-26 [facility] Comment on above: Performed By: #### L 9000.0800 ####[facility] [address] [place], [address] Normal [facility] Comment on above: Performed By: #### L 9000.0800 ####[facility] [address] [place], [address] O2 Delivery Dev BiPAP Normal [facility] Comment on above: Performed By: #### L 9000.0800 ####[facility] [address] [place], [address] pCO2 59.4 mmHg High 35-45 [facility] Comment on above: Performed By: #### L 9000.0800 ####[facility] [address] [place], [address] PEEP 8 Normal [facility] Comment on above: Performed By: #### L 9000.0800 ####[facility] [address] [place], [address] pH (Bld) 7.38 [pH] Normal 7.35-7.45 [facility] Comment on above: Performed By: #### L 9000.0800 ####[facility] [address] [place], [address] PO2 21 mmHG Invalid Interpretation Code 75-100 [facility] Comment on above: Performed By: #### L 9000.0800 ####[facility] [address] [place], [address] Read Back By Yes [facility] Comment on above: Performed By: #### L 9000.0800 ####[facility] [address] [place], [address] Results To tereletsky Normal [facility] Comment on above: Performed By: #### L 9000.0800 ####[facility] [address] [place], [address] RR 14 Normal [facility] Comment on above: Performed By: #### L 9000.0800 ####[facility] [address] [place], [address] SITE R Radial Normal [facility] Comment on above: Performed By: #### L 9000.0800 ####[facility] [address] [place], [address] SO2 32 Low 95-99 [facility] Comment on above: Performed By: #### L 9000.0800 ####[facility] [address] [place], [address] Time Given 16:55:40 Normal [facility] Comment on above: Performed By: #### L 8999.00 ####[facility] [address] [place], [address] Vt 500.0 mL Normal [facility] Comment on above: Performed By: #### L 8999.08 ####[facility] [address] [place], [address] BARON TEST Positive Normal [facility] Comment on above: Performed By: #### L 8999.0800 ####[facility] [address] [place], [address] Base excess Calc (Bld) [Moles/Vol] 5 mmol/L High -2 to +2 [facility] Comment on above: Performed By: #### L 8999.08 ####[facility] [address] [place], [address] Blood Gas Type ART Normal [facility] Comment on above: Performed By: #### L 8999.0800 ####[facility] [address] [place], [address] CO2 [Moles/Vol] 33 mmol/L Normal [facility] Comment on above: Performed By: #### L 8999.0800 ####[facility] [address] [place], [address] FI02 30.0 Normal [facility] Comment on above: Performed By: #### L 8999.08 ####[facility] [address] [place], [address] HCO3 (Bld) [Moles/Vol] 30.8 mmol/L High 22-26 [facility] Comment on above: Performed By: #### L 8999.0800 ####[facility] [address] [place], [address] Mode Not entered Normal [facility] Comment on above: Performed By: #### L 9000.0800 ####[facility] [address] [place], [address] O2 Delivery Dev BiPAP Normal [facility] Comment on above: Performed By: #### L 9000.0800 ####[facility] [address] [place], [address] pCO2 56.2 mmHg High 35-45 [facility] Comment on above: Performed By: #### L 9000.0800 ####[facility] [address] [place], [address] PEEP 8 Normal [facility] Comment on above: Performed By: #### L 9000.0800 ####[facility] [address] [place], [address] pH (Bld) 7.35 [pH] Normal 7.35-7.45 [facility] Comment on above: Performed By: #### L 9000.0800 ####[facility] [address] [place], [address] PO2 37 mmHG Invalid Interpretation Code 75-100 [facility] Comment on above: Performed By: #### L 9000.0800 ####[facility] [address] [place], [address] Read Back By Yes Normal [facility] Comment on above: Performed By: #### L 9000.0800 ####[facility] [address] [place], [address] RR 14 Normal [facility] Comment on above: Performed By: #### L 9000.0800 ####[facility] [address] [place], [address] SITE R Radial Normal [facility] Comment on above: Performed By: #### L 9000.0800 ####[facility] [address] [place], [address] SO2 66 Low 95-99 [facility] Comment on above: Performed By: #### L 9000.0800 ####[facility] [address] [place], [address] Vt 500.0 mL Normal [facility] Comment on above: Performed By: #### L 9000.0800 ####[facility] [address] [place], [address] BARON TEST Positive Normal [facility] Comment on above: Performed By: #### L 9000.0800 ####[facility] [address] [place], [address] Base excess Calc (Bld) [Moles/Vol] 5 mmol/L High -2 to +2 [facility] Comment on above: Performed By: #### L 9000.0800 ####[facility] [address] [place], [address] Blood Gas Type ART Normal [facility] Comment on above: Performed By: #### L 9000.0800 ####[facility] [address] [place], [address] CO2 [Moles/Vol] 34 mmol/L Normal [facility] Comment on above: Performed By: #### L 9000.0800 ####[facility] [address] [place], [address] Comment Normal [facility] Comment on above: Result Comment: AVAP S 500vt 14rr 100% +8 maxP=26 minP=18 Performed By: #### L 9000.0800 ####[facility] [address] [place], [address] FI02 100.0 Normal [facility] Comment on above: Performed By: #### L 9000.0800 ####[facility] [address] [place], [address] HCO3 (Bld) [Moles/Vol] 31.6 mmol/L High 22-26 [facility] Comment on above: Performed By: #### L 9000.0800 ####[facility] [address] [place], [address] Mode Not entered Normal [facility] Comment on above: Performed By: #### L 9000.0800 ####[facility] [address] [place], [address] O2 Delivery Dev BiPAP Normal [facility] Comment on above: Performed By: #### L 9000.0800 ####[facility] [address] [place], [address] pCO2 63.0 mmHg High 35-45 [facility] Comment on above: Performed By: #### L 9000.0800 ####[facility] [address] [place], [address] pH (Bld) 7.31 [pH] Low 7.35-7.45 [facility] Comment on above: Performed By: #### L 9000.0800 ####[facility] [address] [place], [address] PO2 83 mmHG Normal 75-100 [facility] Comment on above: Performed By: #### L 9000.0800 ####[facility] [address] [place], [address] SITE R Radial Normal [facility] Comment on above: Performed By: #### L 9000.0800 ####[facility] [address] [place], [address] SO2 95 Normal 95-99 [facility] Comment on above: Performed By: #### L 9000.0800 ####[facility] [address] [place], [address] Blood base excess determinat ionOrdered By: Lucio Borden on 01-20-2025 Base excess Calc (BldV) [Moles/Vol] 10 mmol/L High -2-2 [facility] Blood bicarbonate measuremen tOrdered By: Lucio Borden on 01-20-2025 HCO3 (Bld) [Moles/Vol] 35.5 mmol/L High 22-26 [facility] Blood cultureOrdered By: Mikey Marie on 01-20-2025 Bacteria identified Cx Nom (Bld) No growth in 5 days. [facility] Blood cultureOrdered By: Maeve Yoder on 01-20-2025 Bacteria identified Cx Nom (Bld) No growth in 5 days. [facility] Bacteria identified Cx Nom (Bld) No growth in 5 days. [facility] CBC W/Diff, Automatedon 12-30 Absolute Lymph 4.62 X10 3/uL High 0.83-4.51 [facility] Comment on above: Performed By: #### L 100.0100, L300.3900, L501.4021, L503.6005, L500.4050, L300.4310, M200.1000 ####[facility] [address] [place], [address] Absolute Neut 8.4 X10 3/uL High 2.0-7.7 [facility] Comment on above: Performed By: #### L 100.0100, L300.3900, L501.4021, L503.6005, L500.4050, L300.4310, M200.1000 ####[facility] [address] [place], [address] Basophils/100 WBC (Bld) 0.6 % Normal 0-1 [facility] Comment on above: Performed By: #### L 100.0100, L300.3900, L501.4021, L503.6005, L500.4050, L300.4310, M200.1000 ####[facility] [address] [place], [address] Eosinophils/100 WBC (Bld) 0.8 % Normal 0-5 [facility] Comment on above: Performed By: #### L 100.0100, L300.3900, L501.4021, L503.6005, L500.4050, L300.4310, M200.1000 ####[facility] [address] [place], [address] Erythrocyte distribution width (RBC) [Ratio] 16.0 % High 11.6-14.6 [facility] Comment on above: Performed By: #### L 100.0100, L300.3900, L501.4021, L503.6005, L500.4050, L300.4310, M200.1000 ####[facility] [address] [place], [address] Hematocrit (Bld) [Volume fraction] 39.6 % Normal 37-47 [facility] Comment on above: Performed By: #### L 100.0100, L300.3900, L501.4021, L503.6005, L500.4050, L300.4310, M200.1000 ####[facility] [address] [place], [address] Hemoglobin (Bld) [Mass/Vol] 12.1 g/dL Normal 12.0-15.0 [facility] Comment on above: Performed By: #### L 100.0100, L300.3900, L501.4021, L503.6005, L500.4050, L300.4310, M200.1000 ####[facility] [address] [place], [address] IG% 0.500 Normal 0.0-0.9 [facility] Comment on above: Result Comment: IG% - Immature Granulocytes (promyelocytes, myelocytes andmetamyelocytes) > 1% indicates that a LEFT SHIFT is Present. Performed By: #### L 100.0100, L300.3900, L501.4021, L503.6005, L500.4050, L300.4310, M200.1000 ####[facility] [address] [place], [address] Lymphocytes/100 WBC (Bld) 32.0 % Normal 19-41 [facility] Comment on above: Performed By: #### L 100.0100, L300.3900, L501.4021, L503.6005, L500.4050, L300.4310, M200.1000 ####[facility] [address] [place], [address] MCH (RBC) [Entitic mass] 27.4 pg Normal 27.0-32.0 [facility] Comment on above: Performed By: #### L 100.0100, L300.3900, L501.4021, L503.6005, L500.4050, L300.4310, M200.1000 ####[facility] [address] [place], [address] MCHC (RBC) [Mass/Vol] 30.6 g/dL Low 32-36 [facility] Comment on above: Performed By: #### L 100.0100, L300.3900, L501.4021, L503.6005, L500.4050, L300.4310, M200.1000 ####[facility] [address] [place], [address] MCV (RBC) [Entitic vol] 89.8 fL Normal 81-99 [facility] Comment on above: Performed By: #### L 100.0100, L300.3900, L501.4021, L503.6005, L500.4050, L300.4310, M200.1000 ####[facility] [address] [place], [address] Monocytes/100 WBC (Bld) 7.7 % Normal 0-10 [facility] Comment on above: Performed By: #### L 100.0100, L300.3900, L501.4021, L503.6005, L500.4050, L300.4310, M200.1000 ####[facility] [address] [place], [address] Neutrophils/100 WBC (Bld) 58.4 % Normal 47-70 [facility] Comment on above: Performed By: #### L 100.0100, L300.3900, L501.4021, L503.6005, L500.4050, L300.4310, M200.1000 ####[facility] [address] [place], [address] Nucleated RBC (Bld) [#/Vol] 0 10*3/uL Normal 0-5 [facility] Comment on above: Performed By: #### L 100.0100, L300.3900, L501.4021, L503.6005, L500.4050, L300.4310, M200.1000 ####[facility] [address] [place], [address] Platelet mean volume (Bld) [Entitic vol] 12.0 fL Normal 6.2-12.0 [facility] Comment on above: Performed By: #### L 100.0100, L300.3900, L501.4021, L503.6005, L500.4050, L300.4310, M200.1000 ####[facility] [address] [place], [address] Platelets (Bld) [#/Vol] 287 10*3/uL Normal 150-450 [facility] Comment on above: Performed By: #### L 100.0100, L300.3900, L501.4021, L503.6005, L500.4050, L300.4310, M200.1000 ####[facility] [address] [place], [address] RBC (Bld) [#/Vol] 4.41 10*6/uL Normal 4.2-5.4 [facility] Comment on above: Performed By: #### L 100.0100, L300.3900, L501.4021, L503.6005, L500.4050, L300.4310, M200.1000 ####[facility] [address] [place], [address] RDW SD 52.7 fl High 35.1-43.9 [facility] Comment on above: Performed By: #### L 100.0100, L300.3900, L501.4021, L503.6005, L500.4050, L300.4310, M200.1000 ####[facility] [address] [place], [address] WBC (Bld) [#/Vol] 14.4 10*3/uL High 4.4-11.0 [facility] Comment on above: Performed By: #### L 100.0100, L300.3900, L501.4021, L503.6005, L500.4050, L300.4310, M200.1000 ####[facility] [address] [place], [address] CTA Chest W/WO Contraston CTA Chest W/WO Contrast Normal [facility] Calculated very low density lipoprotein (VLDL) cholesterol measurementOrdered By: Sandeep Marie on 01-20-2025 Calculated very low density lipoprotein (VLDL) cholesterol measurement 12 mg/dL 5-40 [facility] Comprehensive Metabolic Prof ilon 01-20-2025 Albumin [Mass/Vol] 3.6 g/dL Normal 3.4-4.8 [facility] Comment on above: Performed By: #### L 100.0100, L300.3900, L501.4021, L503.6005, L500.4050, L300.4310, M200.1000 ####[facility] [address] [place], [address] Albumin/Globulin [Mass ratio] 0.9 {ratio} Normal 0.9-2.4 [facility] Comment on above: Performed By: #### L 100.0100, L300.3900, L501.4021, L503.6005, L500.4050, L300.4310, M200.1000 ####[facility] [address] [place], [address] ALK PHOS 143 U/L High 35-104 [facility] Comment on above: Performed By: #### L 100.0100, L300.3900, L501.4021, L503.6005, L500.4050, L300.4310, M200.1000 ####[facility] [address] [place], [address] ALT [Catalytic activity/Vol] 36 U/L High <=34 [facility] Comment on above: Performed By: #### L 100.0100, L300.3900, L501.4021, L503.6005, L500.4050, L300.4310, M200.1000 ####[facility] [address] [place], [address] AST [Catalytic activity/Vol] 81 U/L High <=31 [facility] Comment on above: Result Comment: Hemo lysis present, Results??could be affected.?? Performed By: #### L 100.0100, L300.3900, L501.4021, L503.6005, L500.4050, L300.4310, M200.1000 ####[facility] [address] [place], [address] Bilirubin [Mass/Vol] 0.26 mg/dL Normal 0.00-1.30 [facility] Comment on above: Performed By: #### L 100.0100, L300.3900, L501.4021, L503.6005, L500.4050, L300.4310, M200.1000 ####[facility] [address] [place], [address] BUN/CRE 8.1 RATIO Low 10-20 [facility] Comment on above: Performed By: #### L 100.0100, L300.3900, L501.4021, L503.6005, L500.4050, L300.4310, M200.1000 ####[facility] [address] [place], [address] Calcium [Mass/Vol] 10.2 mg/dL Normal 7.6-11.0 [facility] Comment on above: Performed By: #### L 100.0100, L300.3900, L501.4021, L503.6005, L500.4050, L300.4310, M200.1000 ####[facility] [address] [place], [address] Chloride [Moles/Vol] 97 mmol/L Low 98-108 [facility] Comment on above: Performed By: #### L 100.0100, L300.3900, L501.4021, L503.6005, L500.4050, L300.4310, M200.1000 ####[facility] [address] [place], [address] CO2 [Moles/Vol] 25.7 mmol/L Normal 21.0-32.0 [facility] Comment on above: Performed By: #### L 100.0100, L300.3900, L501.4021, L503.6005, L500.4050, L300.4310, M200.1000 ####[facility] [address] [place], [address] Creatinine [Mass/Vol] 1.24 mg/dL High 0.70-1.20 [facility] Comment on above: Performed By: #### L 100.0100, L300.3900, L501.4021, L503.6005, L500.4050, L300.4310, M200.1000 ####[facility] [address] [place], [address] ECRCL 34.84 ml/min Low 50-250 [facility] Comment on above: Performed By: #### L 100.0100, L300.3900, L501.4021, L503.6005, L500.4050, L300.4310, M200.1000 ####[facility] [address] [place], [address] GAP 15 Normal 5-15 [facility] Comment on above: Performed By: #### L 100.0100, L300.3900, L501.4021, L503.6005, L500.4050, L300.4310, M200.1000 ####[facility] [address] [place], [address] GFR/1.73 sq M.predicted among non-blacks MDRD (S/P/Bld) [Vol rate/Area] 44 mL/min/{1.73_m2} Low >60 [facility] Comment on above: Result Comment: mL/m in/1.73m2 CKD-EPI Creatinine Equation (2020) Performed By: #### L 100.0100, L300.3900, L501.4021, L503.6005, L500.4050, L300.4310, M200.1000 ####[facility] [address] [place], [address] Globulin (S) [Mass/Vol] 4.1 g/dL Normal 2.2-4.2 [facility] Comment on above: Performed By: #### L 100.0100, L300.3900, L501.4021, L503.6005, L500.4050, L300.4310, M200.1000 ####[facility] [address] [place], [address] Glucose [Mass/Vol] 347 mg/dL High 70-99 [facility] Comment on above: Performed By: #### L 100.0100, L300.3900, L501.4021, L503.6005, L500.4050, L300.4310, M200.1000 ####[facility] [address] [place], [address] Potassium [Moles/Vol] 4.0 mmol/L Normal 3.3-5.1 [facility] Comment on above: Result Comment: Hemo lysis present, Results??could be affected.?? Performed By: #### L 100.0100, L300.3900, L501.4021, L503.6005, L500.4050, L300.4310, M200.1000 ####[facility] [address] [place], [address] Sodium [Moles/Vol] 137 mmol/L Normal 133-145 [facility] Comment on above: Performed By: #### L 100.0100, L300.3900, L501.4021, L503.6005, L500.4050, L300.4310, M200.1000 ####[facility] [address] [place], [address] T PROT 7.6 g/dL Normal 5.9-8.4 [facility] Comment on above: Performed By: #### L 100.0100, L300.3900, L501.4021, L503.6005, L500.4050, L300.4310, M200.1000 ####[facility] [address] [place], [address] Urea nitrogen [Mass/Vol] 10 mg/dL Normal 4-19 [facility] Comment on above: Performed By: #### L 100.0100, L300.3900, L501.4021, L503.6005, L500.4050, L300.4310, M200.1000 ####[facility] [address] [place], [address] Echo Completeon 01-20-2025 Echo Complete Normal [facility] Echocardiogram study reportO rdered By: Marcelina Soto on 01-20-2025 Study report [facility] Work Phone: Emergency Department Summary on 01-20-2025 Emergency Department Summary Normal [facility] H AND P Exam - Hospitaliston 01-20-2025 H&P Exam - Hospitalist Normal [facility] Hemoglobin A1con 01-20-2025 HbA1c (Bld) [Mass fraction] 10.6 % High <=5.6 [facility] Comment on above: Result Comment: Norm al < 5.7 % Prediabetic 5.7 - 6.4 % Diabetic >or= 6.5 % Please note range changes. Performed By: #### L 369.9937 ####[facility] [address] [place], [address] Hemoglobin A1c percentageOrd ered By: Sandeep Marie on 01-20-2025 HbA1c (Bld) [Mass fraction] 10.6 % High <5.7 [facility] Ketones Test strip Ql (U)Ord ered By: Jeevan Yoder on 01-20-2025 Ketones Ql (U) Negative Negative [facility] L499.0042on 01-20-2025 Trop T High Sen 71 ng/L Invalid Interpretation Code <=14 [facility] Comment on above: Result Comment: Crit ical Result(s) Called at:0237 by: EMA BOWEN TO AMANDA.??Results read back by same. Performed By: #### L 499.0042 ####[facility] [address] [place], [address] L499.0043on 01-20-2025 Trop T High Sen 94 ng/L Invalid Interpretation Code <=14 [facility] Comment on above: Order Comment: PT SUAREZ S NOT MADE IT TO ROOM YET FROM ER OF 409 Result Comment: Crit ical Result(s) Called at 0548: by: SHARONA ALVAREZ. ??Results read back by same. Performed By: #### L 499.0043 ####[facility] [address] [place], [address] L501.4021on 01-20-2025 Trop T High Sen 52 ng/L High <=14 [facility] Comment on above: Performed By: #### L 100.0100, L300.3900, L501.4021, L503.6005, L500.4050, L300.4310, M200.1000 ####[facility] [address] [place], [address] L503.7505on 01-20-2025 Natriuretic peptide B (Bld) [Mass/Vol] 9449 pg/mL High <=1800 [facility] Comment on above: Result Comment: Hear t Failure Unlikely: < 300 pg/mLHeart Failure Likely< 50 Years: > 450 pg/mL50-75 Years: > 900 pg/mL>75 Years: > 1800 pg/mL Performed By: #### L 503.7505, L500.4100, L501.9520 ####[facility] [address] [place], [address] LDL calc ser/plasOrdered By: Sandeep Marie on 01-20-2025 Cholesterol in LDL [Mass/Vol] 79 mg/dL [facility] Lactic Acidon 01-20-2025 Lactate [Moles/Vol] 1.7 mmol/L Normal 0.0-2.0 [facility] Comment on above: Performed By: #### L 503.6005 ####[facility] [address] [facility] [address] Lactate [Moles/Vol] 2.0 mmol/L Normal 0.0-2.0 [facility] Comment on above: Order Comment: Comme nts: if result >2, system reflex orders 2nd test @ 4hrsY Result Comment: Crit ical Result(s) Called at 0615: by: SHARONA ALVAREZ. ??Results read back by same. Performed By: #### M 200.1000, L503.6005 ####[facility] [address] [place], [address] Lactate [Moles/Vol] 3.4 mmol/L Invalid Interpretation Code 0.0-2.0 [facility] Comment on above: Order Comment: Y Result Comment: Crit ical Result(s) Called at: 0116 by: EMA BOWEN TO [facility].??Results read back by same. Performed By: #### L 100.0100, L300.3900, L501.4021, L503.6005, L500.4050, L300.4310, M200.1000 ####[facility] [address] [place], [address] Legionella Antigen Urineon 0 01-20-2025 LEGU Normal [facility] Comment on above: Performed By: #### M 300.4600, M300.4500 ####[facility] [address] [place], [address] Lipid Profileon 01-20-2025 CHOL:HDL 2.89 Normal [facility] Comment on above: Performed By: #### L 503.7505, L500.4100, L501.9520 ####[facility] [address] [place], [address] Cholesterol [Mass/Vol] 140 mg/dL Normal <=200 [facility] Comment on above: Result Comment: Chol esterol level, Desirable <200 mg/dLBorderline high cholesterol 200-239 mg/dLHigh cholesterol >=240 mg/dLRecommendations of the NCEP Adult Treatment Panel for thefollowing risk-cutoff thresholds for the [place] Americanpulation. Performed By: #### L 503.7505, L500.4100, L501.9520 ####[facility] [address] [place], [address] Cholesterol in HDL [Mass/Vol] 49 mg/dL Normal [facility] Comment on above: Result Comment: Camelia onal Cholesterol Education Program (NCEP) guidelines:<40 mg/dL: Low HDL-cholesterol (major risk factor for CHD)>= 60 mg/dL: High HDL-cholesterol (negative risk factor forCHD)HDL-cholesterol is affected by a number of factors, e.g.smoking, exercise, hormones, sex and age. Performed By: #### L 503.7505, L500.4100, L501.9520 ####[facility] [address] [place], [address] Cholesterol in LDL [Mass/Vol] 79 mg/dL Normal [facility] Comment on above: Result Comment: Bord iihvmu=303-391 mg/dL Higher Qvnk=011 mg/dL or greater Performed By: #### L 503.7505, L500.4100, L501.9520 ####[facility] [address] [place], [address] Cholesterol in VLDL [Mass/Vol] 12 mg/dL Normal 5-40 [facility] Comment on above: Performed By: #### L 503.7505, L500.4100, L501.9520 ####[facility] [address] [place], [address] Triglyceride [Mass/Vol] 62 mg/dL Normal [facility] Comment on above: Result Comment: The drugs N-Acetylcysteine and Metamizole may falselydepress this assay.Normal range: <150 mg/dLBorderline High: 150-199 mg/dLHigh: 200-499 mg/dLVery High: >500 mg/dL Performed By: #### L 503.7505, L500.4100, L501.9520 ####[facility] [address] [place], [place], [address] Measurement, pHOrdered By: Connor Borden on 01-20-2025 pH (Unsp spec) 7.38 [pH] 7.35-7.45 [facility] Mucus LM Ql (Urine sed)Order ed By: Jeevan Yoder on 01-20-2025 Mucus Ql (Urine sed) 0 SEEN /hpf [facility] Nitrite Test strip Ql (U)Ord ered By: Jeevan Yoder on 01-20-2025 Nitrite Ql (U) Negative Negative [facility] No Panel InformationOrdered By: Lucio Borden on 01-20-2025 ART [facility] R Radial [facility] ST [facility] BiPAP [facility] 500.0 mL [facility] 14 [facility] 8 [facility] 16:55:40 [facility] Yes [facility] No Panel InformationOrdered By: Jeevan Yoder on 01-20-2025 See comment [facility] 81 U/L High <32 [facility] Partial Thromboplast Timeon 01-20-2025 aPTT Coag (Bld) [Time] 26.9 s Normal 24.1-36.2 [facility] Comment on above: Performed By: #### L 100.0100, L300.3900, L501.4021, L503.6005, L500.4050, L300.4310, M200.1000 ####[facility] [address] [place], [address] Protein Test strip Ql (U)Ord ered By: Jeevan Yoder on 01-20-2025 Protein Ql (U) 100 mg/dl High Negative [facility] Prothrombin Time w/INRon INR Coag (PPP) [Relative time] 1.1 {INR} Normal [facility] Comment on above: Performed By: #### L 100.0100, L300.3900, L501.4021, L503.6005, L500.4050, L300.4310, M200.1000 ####[facility] [address] [place], [address] PT Coag (PPP) [Time] 14.6 s Normal 11.7-14.9 [facility] Comment on above: Performed By: #### L 100.0100, L300.3900, L501.4021, L503.6005, L500.4050, L300.4310, M200.1000 ####[facility] [address] [place], [address] Prothrombin timeOrdered By: Jeevan Yoder on 01-20-2025 PT Coag (PPP) [Time] 14.6 s 11.7-14.9 [facility] RESPIRATORY PANEL MOLECULARo n 01-20-2025 RP PANEL Normal [facility] Comment on above: Performed By: #### M 100.638 ####[facility] [address] [place], [address] Respiratory pathogens detect ion panel by molecular detection methodOrdered By: Sandeep Marie on 01-20-2025 Respiratory pathogens DNA and RNA panel BEBETO+probe (Resp) [facility] Serum globulin measurementOr dered By: Jeevan Yoder on 01-20-2025 Globulin (S) [Mass/Vol] 4.1 g/dL 2.2-4.2 [facility] Serum or plasma alanine kelley otransferase (ALT) measurementOrdered By: Jeevan Yoder on 01-20-2025 ALT [Catalytic activity/Vol] 36 U/L High <35 [facility] Serum or plasma albumin melanie urement (mass/volume)Ordered By: Jeevan Yoder on 01-20-2025 Albumin [Mass/Vol] 3.6 g/dL 3.4-4.8 [facility] Serum or plasma albumin/glob ulin mass ratioOrdered By: Jeevan Yoder on 01-20-2025 Albumin/Globulin [Mass ratio] 0.9 {ratio} 0.9-2.4 [facility] Serum or plasma alkaline lissa sphatase measurementOrdered By: Jeevan Yoder on 01-20-2025 ALP [Catalytic activity/Vol] 143 U/L High 35-104 [facility] Serum or plasma cholesterol in HDL measurement (mass/volume)Ordered By: Sandeep Marie on 01-20-2025 Cholesterol in HDL [Mass/Vol] 49 mg/dL >40 [facility] Serum or plasma cholesterol measurement (mass/volume)Ordered By: Sandeep Marie on 01-20-2025 Cholesterol [Mass/Vol] 140 mg/dL <201 [facility] Squamous epithelial cells de tection in urine sediment by light microscopyOrdered By: Jeevan Yoder on 01-20-2025 Epithelial cells.squamous LM Ql (Urine sed) 5-10 SEEN /hpf 5-10 [facility] Strep pneumoniae Antig(UR,CS F)on 01-20-2025 STPAG Normal [facility] Comment on above: Performed By: #### M 300.4600, M300.4500 ####[facility] [address] [place], [place], [address] TSH DL <= 0.005 mIU/L QnOrde red By: Sandeep Marie on 01-20-2025 TSH Qn 0.492 uIU/mL 0.300-4.200 [facility] Thyroid Stim Hormone (TSH)on 01-20-2025 TSH 0.492 uIU/mL Normal 0.300-4.200 [facility] Comment on above: Performed By: #### L 503.7505, L500.4100, L501.9520 ####[facility] [address] [place], [place], [address] Total carbon dioxide measure mentOrdered By: Lucio Borden on 01-20-2025 CO2 [Moles/Vol] 37 mmol/L [facility] Total proteinOrdered By: Maeve Yoder on 01-20-2025 Protein [Mass/Vol] 7.6 g/dL 5.9-8.4 [facility] Troponin T.cardiac [Mass/vol ume] in Serum or Plasma by High sensitivity methodOrdered By: Jeevan Yoder on 01-20-2025 Troponin T.cardiac High sensitivity method [Mass/Vol] 94 ng/L High <14 [facility] Troponin T.cardiac High sensitivity method [Mass/Vol] 71 ng/L High <14 [facility] Troponin T.cardiac High sensitivity method [Mass/Vol] 52 ng/L High <14 [facility] Urinalysis, Completeon 01-20 EPI,SQUAMOUS 5-10 SEEN Normal 5-10 [facility] Comment on above: Order Comment: MARSHALL CTOR TO SPECIFY Performed By: #### L 400.0001 ####[facility] [address] [facility] [address] RBC 5-10 SEEN Normal 0-5 [facility] Comment on above: Order Comment: MARSHALL CTOR TO SPECIFY Performed By: #### L 400.0001 ####[facility] [address] [place], [address] WBC 0-5 SEEN Normal 0-5 [facility] Comment on above: Order Comment: MARSHALL CTOR TO SPECIFY Performed By: #### L 400.0001 ####[facility] [address] [place], [address] BACTERIA 0 SEEN Normal None Seen [facility] Comment on above: Order Comment: MARSHALL CTOR TO SPECIFY Performed By: #### L 400.0001 ####[facility] [address] [place], [address] Mucus Ql (Urine sed) 0 SEEN Normal [facility] Comment on above: Order Comment: MARSHALL CTOR TO SPECIFY Performed By: #### L 400.0001 ####[facility] [address] [place], [address] Urine Legionella pneumophila antigen detectionOrdered By: Sandeep Marie on 01-20-2025 L. pneumophila Ag Ql (U) [facility] Urine clarityOrdered By: Maeve Yoder on 01-20-2025 Clarity (U) Clear Clear [facility] Urine color determinationOrd ered By: Jeevan Yoder on 01-20-2025 Color (U) Straw Yellow [facility] Urine cultureOrdered By: Maeve Yoder on 01-20-2025 Bacteria identified Cx Nom (U) Proteus mirabilis Abnormal [facility] Urine glucose detectionOrder ed By: Jeevan Yoder on 01-20-2025 Glucose Ql (U) 1000 mg/dl High Normal [facility] Urine leukocyte esterase det ection by dipstickOrdered By: Jeevan Yoder on 01-20-2025 Leukocyte esterase Test strip Ql (U) Negative Negative [facility] Urine pHOrdered By: Jeevan rai on 01-20-2025 pH (U) 6.0 [pH] 5.0 - 8.0 [facility] Urine sediment bacteria coun t by microscopy (number/high power field)Ordered By: Jeevan Yoder on 01-20-2025 Bacteria LM.HPF (Urine sed) [#/Area] 0 /[HPF] None Seen [facility] Urine specific gravity measu rementOrdered By: Jeevan Yoder on 01-20-2025 Specific gravity (U) [Rel density] 1.010 1.002-1.030 [facility] Urine urobilinogen measureme ntOrdered By: Jeevan Yoder on 01-20-2025 Urobilinogen Ql (U) Normal mg/dl Normal [facility] White blood cell countOrdere d By: Jeevan Yoder on 01-20-2025 White blood cell count 0-5 SEEN /hpf 0-5 [facility] Anion gap in Serum or Plasma Ordered By: Ramone Smiley on 01-19-2025 Anion gap [Moles/Vol] 14 mmol/L 5-15 [facility] BUN/creatinine ratioOrdered By: Ramone Smiley on 01-19-2025 Urea nitrogen/Creatinine [Mass ratio] 7.7 mg/mg Low 10-20 [facility] Bilirubin, totalOrdered By: Ramone Smiley on 01-19-2025 Bilirubin [Mass/Vol] 0.25 mg/dL 0.00-1.30 [facility] CBC-Complete Blood Cnt No Di ffon 01-19-2025 Erythrocyte distribution width (RBC) [Ratio] 16.0 % High 11.6-14.6 [facility] Comment on above: Order Comment: Order Date: 01/19/25Order Info: [id number] - CBC Performed By: #### L 500.4050, L501.5200, L100.0500 ####[facility] [address] [place], [address] Hematocrit (Bld) [Volume fraction] 35.3 % Low 37-47 [facility] Comment on above: Order Comment: Order Date: 01/19/25Order Info: [id number] - CBC Performed By: #### L 500.4050, L501.5200, L100.0500 ####[facility] [address] [place], [address] Hemoglobin (Bld) [Mass/Vol] 10.9 g/dL Low 12.0-15.0 [facility] Comment on above: Order Comment: Order Date: 01/19/25Order Info: [id number] - CBC Performed By: #### L 500.4050, L501.5200, L100.0500 ####[facility] [address] [place], [address] MCH (RBC) [Entitic mass] 27.7 pg Normal 27.0-32.0 [facility] Comment on above: Order Comment: Order Date: 01/19/25Order Info: [id number] - CBC Performed By: #### L 500.4050, L501.5200, L100.0500 ####[facility] [address] [place], [address] MCHC (RBC) [Mass/Vol] 30.9 g/dL Low 32-36 [facility] Comment on above: Order Comment: Order Date: 01/19/25Order Info: [id number] - CBC Performed By: #### L 500.4050, L501.5200, L100.0500 ####[facility] [address] [place], [address] MCV (RBC) [Entitic vol] 89.6 fL Normal 81-99 [facility] Comment on above: Order Comment: Order Date: 01/19/25Order Info: [id number] - CBC Performed By: #### L 500.4050, L501.5200, L100.0500 ####[facility] [address] [place], [address] Platelet mean volume (Bld) [Entitic vol] 11.6 fL Normal 6.2-12.0 [facility] Comment on above: Order Comment: Order Date: 01/19/25Order Info: [id number] - CBC Performed By: #### L 500.4050, L501.5200, L100.0500 ####[facility] [address] [place], [address] Platelets (Bld) [#/Vol] 253 10*3/uL Normal 150-450 [facility] Comment on above: Order Comment: Order Date: 01/19/25Order Info: [id number] - CBC Performed By: #### L 500.4050, L501.5200, L100.0500 ####[facility] [address] [place], [address] RBC (Bld) [#/Vol] 3.94 10*6/uL Low 4.2-5.4 [facility] Comment on above: Order Comment: Order Date: 01/19/25Order Info: [id number] - CBC Performed By: #### L 500.4050, L501.5200, L100.0500 ####[facility] [address] [place], [address] RDW SD 52.7 fl High 35.1-43.9 [facility] Comment on above: Order Comment: Order Date: 01/19/25Order Info: [id number] - CBC Performed By: #### L 500.4050, L501.5200, L100.0500 ####[facility] [address] [place], [address] WBC (Bld) [#/Vol] 8.3 10*3/uL Normal 4.4-11.0 [facility] Comment on above: Order Comment: Order Date: 01/19/25Order Info: [id number] - CBC Performed By: #### L 500.4050, L501.5200, L100.0500 ####[facility] [address] [place], [address] Carbon dioxide, total [Moles /volume] in Central venous bloodOrdered By: Ramone Smiley on 01-19-2025 CO2 [Moles/Vol] 27.2 mmol/L 21.0-32.0 [facility] Chloride assayOrdered By: Richar Smiley on 01-19-2025 Chloride [Moles/Vol] 96 mmol/L Low 98-108 [facility] Comprehensive Metabolic Prof ilon 01-19-2025 Albumin [Mass/Vol] 3.4 g/dL Normal 3.4-4.8 [facility] Comment on above: Order Comment: Order Date: 01/19/25Order Info: [id number] - CMPOrder Info: [id number] - MG Performed By: #### L 500.4050, L501.5200, L100.0500 ####[facility] [address] [place], [address] Albumin/Globulin [Mass ratio] 0.9 {ratio} Normal 0.9-2.4 [facility] Comment on above: Order Comment: Order Date: 01/19/25Order Info: [id number] - CMPOrder Info: [id number] - MG Performed By: #### L 500.4050, L501.5200, L100.0500 ####[facility] [address] [place], [address] ALK PHOS 123 U/L High 35-104 [facility] Comment on above: Order Comment: Order Date: 01/19/25Order Info: [id number] - CMPOrder Info: [id number] - MG Performed By: #### L 500.4050, L501.5200, L100.0500 ####[facility] [address] [place], [address] ALT [Catalytic activity/Vol] 18 U/L Normal <=34 [facility] Comment on above: Order Comment: Order Date: 01/19/25Order Info: [id number] - CMPOrder Info: [id number] - MG Performed By: #### L 500.4050, L501.5200, L100.0500 ####[facility] [address] [place], [address] AST [Catalytic activity/Vol] 25 U/L Normal <=31 [facility] Comment on above: Order Comment: Order Date: 01/19/25Order Info: [id number] - CMPOrder Info: [id number] - MG Performed By: #### L 500.4050, L501.5200, L100.0500 ####[facility] [address] [place], [address] Bilirubin [Mass/Vol] 0.25 mg/dL Normal 0.00-1.30 [facility] Comment on above: Order Comment: Order Date: 01/19/25Order Info: [id number] - CMPOrder Info: [id number] - MG Performed By: #### L 500.4050, L501.5200, L100.0500 ####[facility] [address] [place], [address] BUN/CRE 7.7 RATIO Low 10-20 [facility] Comment on above: Order Comment: Order Date: 01/19/25Order Info: [id number] - CMPOrder Info: [id number] - MG Performed By: #### L 500.4050, L501.5200, L100.0500 ####[facility] [address] [place], [address] Calcium [Mass/Vol] 10.4 mg/dL Normal 7.6-11.0 [facility] Comment on above: Order Comment: Order Date: 01/19/25Order Info: [id number] - CMPOrder Info: [id number] - MG Performed By: #### L 500.4050, L501.5200, L100.0500 ####[facility] [address] [place], [address] Chloride [Moles/Vol] 96 mmol/L Low 98-108 [facility] Comment on above: Order Comment: Order Date: 01/19/25Order Info: [id number] - CMPOrder Info: [id number] - MG Performed By: #### L 500.4050, L501.5200, L100.0500 ####[facility] [address] [place], [address] CO2 [Moles/Vol] 27.2 mmol/L Normal 21.0-32.0 [facility] Comment on above: Order Comment: Order Date: 01/19/25Order Info: [id number] - CMPOrder Info: [id number] - MG Performed By: #### L 500.4050, L501.5200, L100.0500 ####[facility] [address] [place], [address] Creatinine [Mass/Vol] 1.06 mg/dL Normal 0.70-1.20 [facility] Comment on above: Order Comment: Order Date: 01/19/25Order Info: [id number] - CMPOrder Info: [id number] - MG Performed By: #### L 500.4050, L501.5200, L100.0500 ####[facility] [address] [place], [address] GAP 14 Normal 5-15 [facility] Comment on above: Order Comment: Order Date: 01/19/25Order Info: [id number] - CMPOrder Info: [id number] - MG Performed By: #### L 500.4050, L501.5200, L100.0500 ####[facility] [address] [place], [address] GFR/1.73 sq M.predicted among non-blacks MDRD (S/P/Bld) [Vol rate/Area] 53 mL/min/{1.73_m2} Low >60 [facility] Comment on above: Order Comment: Order Date: 01/19/25Order Info: [id number] - CMPOrder Info: [id number] - MG Result Comment: mL/m in/1.73m2 CKD-EPI Creatinine Equation (2020) Performed By: #### L 500.4050, L501.5200, L100.0500 ####[facility] [address] [place], [address] Globulin (S) [Mass/Vol] 3.9 g/dL Normal 2.2-4.2 [facility] Comment on above: Order Comment: Order Date: 01/19/25Order Info: [id number] - CMPOrder Info: [id number] - MG Performed By: #### L 500.4050, L501.5200, L100.0500 ####[facility] [address] [place], [address] Glucose [Mass/Vol] 288 mg/dL High 70-99 [facility] Comment on above: Order Comment: Order Date: 01/19/25Order Info: [id number] - CMPOrder Info: [id number] - MG Performed By: #### L 500.4050, L501.5200, L100.0500 ####[facility] [address] [place], [address] Potassium [Moles/Vol] 3.3 mmol/L Normal 3.3-5.1 [facility] Comment on above: Order Comment: Order Date: 01/19/25Order Info: [id number] - CMPOrder Info: [id number] - MG Performed By: #### L 500.4050, L501.5200, L100.0500 ####[facility] [address] [place], [place], [address] Sodium [Moles/Vol] 137 mmol/L Normal 133-145 [facility] Comment on above: Order Comment: Order Date: 01/19/25Order Info: [id number] - CMPOrder Info: [id number] - MG Performed By: #### L 500.4050, L501.5200, L100.0500 ####[facility] [address] [place], [place], [id number] T PROT 7.3 g/dL Normal 5.9-8.4 [facility] Comment on above: Order Comment: Order Date: 01/19/25Order Info: [id number] - CMPOrder Info: [id number] - MG Performed By: #### L 500.4050, L501.5200, L100.0500 ####[facility] [address] [place], [address] Urea nitrogen [Mass/Vol] 8 mg/dL Normal 4-19 [facility] Comment on above: Order Comment: Order Date: 01/19/25Order Info: [id number] - CMPOrder Info: [id number] - MG Performed By: #### L 500.4050, L501.5200, L100.0500 ####[facility] [address] [place], [address] Erythrocyte distribution wid th ratioOrdered By: Ramone Smiley on 01-19-2025 Erythrocyte distribution width (RBC) [Ratio] 16.0 % High 11.6-14.6 [facility] Erythrocyte distribution wid th standard deviationOrdered By: Ramone Smiley on 01-19-2025 Erythrocyte distribution width (RBC) [Ratio] 52.7 fl High 35.1-43.9 [facility] Glomerular filtration rate ( GFR) estimation/1.73 sq m using serum, plasma, or whole bOrdered By: Ramone Smiley on 01-19-2025 GFR/1.73 sq M.predicted among non-blacks MDRD (S/P/Bld) [Vol rate/Area] 53 mL/min/{1.73_m2} Low >60 [facility] Hematocrit Auto (Bld) [Volum e fraction]Ordered By: Ramone Smiley on 01-19-2025 Hematocrit (Bld) [Volume fraction] 35.3 % Low 37-47 [facility] Hemoglobin measurementOrdere d By: Ramone Smiley on 01-19-2025 Hemoglobin (Bld) [Mass/Vol] 10.9 g/dL Low 12.0-15.0 [facility] L503.7505on 01-19-2025 Natriuretic peptide B (Bld) [Mass/Vol] 3173 pg/mL High <=1800 [facility] Comment on above: Order Comment: Order Date: 01/19/25Order Info: [id number] - CMPOrder Info: [id number] - MG Result Comment: Hear t Failure Unlikely: < 300 pg/mLHeart Failure Likely< 50 Years: > 450 pg/mL50-75 Years: > 900 pg/mL>75 Years: > 1800 pg/mL Performed By: #### L 503.7505 ####[facility] [address] [place], [place], [address] MCV (mean corpuscular volume ) determinationOrdered By: Ramone Smiley on 01-19-2025 MCV (RBC) [Entitic vol] 89.6 fL 81-99 [facility] Magnesiumon 01-19-2025 Magnesium [Mass/Vol] 2.3 mg/dL High 1.5-2.2 [facility] Comment on above: Order Comment: Order Date: 01/19/25Order Info: [id number] - CMPOrder Info: [id number] - MG Performed By: #### L 500.4050, L501.5200, L100.0500 ####[facility] [address] [place], [place], [id number] Magnesium measurement (mass/ volume)Ordered By: Ramone Smiley on 01-19-2025 Magnesium (Unsp spec) [Mass/Vol] 2.3 mg/dL High 1.5-2.2 [facility] Mean corpuscular hemoglobin (MCH) determinationOrdered By: Ramone Smiley on 01-19-2025 MCH (RBC) [Entitic mass] 27.7 pg 27.0-32.0 [facility] Natriuretic peptide.B prohor hayley N-Terminal [Mass/volume] in Serum or PlasmaOrdered By: Ramone Smiley on 01-19-2025 Natriuretic peptide.B prohormone N-Terminal [Mass/Vol] 3173 pg/mL High <1800 [facility] No Panel InformationOrdered By: Ramnoe Smiley on 01-19-2025 25 U/L <32 [facility] Platelet countOrdered By: Richar Smiley on 01-19-2025 Platelets (Bld) [#/Vol] 253 10*3/uL 150-450 [facility] Potassium measurement (mass/ volume)Ordered By: Ramone Smiley on 01-19-2025 Potassium (Unsp spec) [Mass/Vol] 3.3 mmol/L 3.3-5.1 [facility] RBC Auto (Bld) [#/Vol]Ordere d By: Ramone Smiley on 01-19-2025 RBC (Bld) [#/Vol] 3.94 10*6/uL Low 4.2-5.4 [facility] Serum creatinine measurement (mass/volume)Ordered By: Ramone Smiley on 01-19-2025 Creatinine [Mass/Vol] 1.06 mg/dL 0.70-1.20 [facility] Serum globulin measurementOr dered By: Ramone Smiley on 01-19-2025 Globulin (S) [Mass/Vol] 3.9 g/dL 2.2-4.2 [facility] Serum glucose measurement (m ass/volume)Ordered By: Ramone Smiley on 01-19-2025 Glucose [Mass/Vol] 288 mg/dL High 70-99 [facility] Serum or plasma alanine kelley otransferase (ALT) measurementOrdered By: Ramone Smiley on 01-19-2025 ALT [Catalytic activity/Vol] 18 U/L <35 [facility] Serum or plasma albumin melanie urement (mass/volume)Ordered By: Ramone Smiley on 01-19-2025 Albumin [Mass/Vol] 3.4 g/dL 3.4-4.8 [facility] Serum or plasma albumin/glob ulin mass ratioOrdered By: Ramone Smiley on 01-19-2025 Albumin/Globulin [Mass ratio] 0.9 {ratio} 0.9-2.4 [facility] Serum or plasma alkaline lissa sphatase measurementOrdered By: Ramone Smiley on 01-19-2025 ALP [Catalytic activity/Vol] 123 U/L High 35-104 [facility] Serum or plasma calcium melanie urement (mass/volume)Ordered By: Ramone Smiley on 01-19-2025 Calcium [Mass/Vol] 10.4 mg/dL 7.6-11.0 [facility] Serum or plasma urea nitroge n measurement (mass/volume)Ordered By: Ramone Smiley on 01-19-2025 Urea nitrogen [Mass/Vol] 8 mg/dL 4-19 [facility] Sodium levelOrdered By: Ramone Smiley on 01-19-2025 Sodium [Moles/Vol] 137 mmol/L 133-145 [facility] Total proteinOrdered By: Lilliam Smiley on 01-19-2025 Protein [Mass/Vol] 7.3 g/dL 5.9-8.4 [facility] White blood cell (WBC) count Ordered By: Ramone Smiley on 01-19-2025 WBC (Bld) [#/Vol] 8.3 10*3/uL 4.4-11.0 [facility] 12 Lead EKGon 01-15-2025 12 Lead EKG Normal [facility] Absolute lymphocyte countOrd ered By: Jeevan Yoder on 01-15-2025 Lymphocytes Auto (Unsp spec) [#/Vol] 1.92 10*3/uL 0.83-4.51 [facility] Absolute neutrophil countOrd ered By: Jeevan Yoder on 01-15-2025 Neutrophils (Bld) [#/Vol] 7.7 10*3/uL 2.0-7.7 [facility] Anion gap in Serum or Plasma Ordered By: Jeevan Yoder on 01-15-2025 Anion gap [Moles/Vol] 11 mmol/L 5-15 [facility] Automated lymphocyte count a s percentage of total leukocytesOrdered By: Jeevan Yoder on 01-15-2025 Lymphocytes/100 WBC Auto (Unsp spec) 18.1 % Low 19-41 [facility] BUN/creatinine ratioOrdered By: Jeevan Yoder on 01-15-2025 Urea nitrogen/Creatinine [Mass ratio] 16.6 mg/mg - [facility] Basic Metabolic Profile (BMP )on 01-15-2025 BUN/CRE 16.6 RATIO Normal - [facility] Comment on above: Performed By: #### L 501.4021, L500.2500, L100.0100 ####[facility] [address] [place], [address] Calcium [Mass/Vol] 9.6 mg/dL Normal 7.6-11.0 [facility] Comment on above: Performed By: #### L 501.4021, L500.2500, L100.0100 ####[facility] [address] [place], [address] Chloride [Moles/Vol] 102 mmol/L Normal 98-108 [facility] Comment on above: Performed By: #### L 501.4021, L500.2500, L100.0100 ####[facility] [address] [place], [address] CO2 [Moles/Vol] 25.0 mmol/L Normal 21.0-32.0 [facility] Comment on above: Performed By: #### L 501.4021, L500.2500, L100.0100 ####[facility] [address] [place], [address] Creatinine [Mass/Vol] 0.92 mg/dL Normal 0.70-1.20 [facility] Comment on above: Performed By: #### L 501.4021, L500.2500, L100.0100 ####[facility] [address] [place], [address] ECRCL 48.84 ml/min Low 50-250 [facility] Comment on above: Performed By: #### L 501.4021, L500.2500, L100.0100 ####[facility] [address] [place], [address] GAP 11 Normal 5-15 [facility] Comment on above: Performed By: #### L 501.4021, L500.2500, L100.0100 ####[facility] [address] [place], [address] GFR/1.73 sq M.predicted among non-blacks MDRD (S/P/Bld) [Vol rate/Area] 63 mL/min/{1.73_m2} Normal >60 [facility] Comment on above: Result Comment: mL/m in/1.73m2 CKD-EPI Creatinine Equation (2020) Performed By: #### L 501.4021, L500.2500, L100.0100 ####[facility] [address] [place], [address] Glucose [Mass/Vol] 144 mg/dL High 70-99 [facility] Comment on above: Performed By: #### L 501.4021, L500.2500, L100.0100 ####[facility] [address] [place], [address] Potassium [Moles/Vol] 3.7 mmol/L Normal 3.3-5.1 [facility] Comment on above: Performed By: #### L 501.4021, L500.2500, L100.0100 ####[facility] [address] [place], [address] Sodium [Moles/Vol] 138 mmol/L Normal 133-145 [facility] Comment on above: Performed By: #### L 501.4021, L500.2500, L100.0100 ####[facility] [address] [place], [address] Urea nitrogen [Mass/Vol] 15 mg/dL Normal 4-19 [facility] Comment on above: Performed By: #### L 501.4021, L500.2500, L100.0100 ####[facility] [address] [place], [address] Basophil percentageOrdered B y: Jeevan Yoder on 01-15-2025 Basophils/100 WBC (Bld) 0.3 % 0-1 [facility] CBC W/Diff, Automatedon 12-29 Absolute Lymph 1.92 X10 3/uL Normal 0.83-4.51 [facility] Comment on above: Performed By: #### L 501.4021, L500.2500, L100.0100 ####[facility] [address] [place], [address] Absolute Neut 7.7 X10 3/uL Normal 2.0-7.7 [facility] Comment on above: Performed By: #### L 501.4021, L500.2500, L100.0100 ####[facility] [address] [place], [address] Basophils/100 WBC (Bld) 0.3 % Normal 0-1 [facility] Comment on above: Performed By: #### L 501.4021, L500.2500, L100.0100 ####[facility] [address] [place], [address] Eosinophils/100 WBC (Bld) 1.6 % Normal 0-5 [facility] Comment on above: Performed By: #### L 501.4021, L500.2500, L100.0100 ####[facility] [address] [place], [address] Erythrocyte distribution width (RBC) [Ratio] 16.3 % High 11.6-14.6 [facility] Comment on above: Performed By: #### L 501.4021, L500.2500, L100.0100 ####[facility] [address] [place], [address] Hematocrit (Bld) [Volume fraction] 34.3 % Low 37-47 [facility] Comment on above: Performed By: #### L 501.4021, L500.2500, L100.0100 ####[facility] [address] [place], [address] Hemoglobin (Bld) [Mass/Vol] 11.0 g/dL Low 12.0-15.0 [facility] Comment on above: Performed By: #### L 501.4021, L500.2500, L100.0100 ####[facility] [address] [place], [address] IG% 0.400 Normal 0.0-0.9 [facility] Comment on above: Result Comment: IG% - Immature Granulocytes (promyelocytes, myelocytes andmetamyelocytes) > 1% indicates that a LEFT SHIFT is Present. Performed By: #### L 501.4021, L500.2500, L100.0100 ####[facility] [address] [place], [address] Lymphocytes/100 WBC (Bld) 18.1 % Low 19-41 [facility] Comment on above: Performed By: #### L 501.4021, L500.2500, L100.0100 ####[facility] [address] [place], [address] MCH (RBC) [Entitic mass] 27.8 pg Normal 27.0-32.0 [facility] Comment on above: Performed By: #### L 501.4021, L500.2500, L100.0100 ####[facility] [address] [place], [address] MCHC (RBC) [Mass/Vol] 32.1 g/dL Normal 32-36 [facility] Comment on above: Performed By: #### L 501.4021, L500.2500, L100.0100 ####[facility] [address] [place], [address] MCV (RBC) [Entitic vol] 86.6 fL Normal 81-99 [facility] Comment on above: Performed By: #### L 501.4021, L500.2500, L100.0100 ####[facility] [address] [place], [address] Monocytes/100 WBC (Bld) 6.9 % Normal 0-10 [facility] Comment on above: Performed By: #### L 501.4021, L500.2500, L100.0100 ####[facility] [address] [place], [address] Neutrophils/100 WBC (Bld) 72.7 % High 47-70 [facility] Comment on above: Performed By: #### L 501.4021, L500.2500, L100.0100 ####[facility] [address] [place], [address] Nucleated RBC (Bld) [#/Vol] 0 10*3/uL Normal 0-5 [facility] Comment on above: Performed By: #### L 501.4021, L500.2500, L100.0100 ####[facility] [address] [place], [address] Platelet mean volume (Bld) [Entitic vol] 10.5 fL Normal 6.2-12.0 [facility] Comment on above: Performed By: #### L 501.4021, L500.2500, L100.0100 ####[facility] [address] [place], [address] Platelets (Bld) [#/Vol] 256 10*3/uL Normal 150-450 [facility] Comment on above: Performed By: #### L 501.4021, L500.2500, L100.0100 ####[facility] [address] [place], [address] RBC (Bld) [#/Vol] 3.96 10*6/uL Low 4.2-5.4 [facility] Comment on above: Performed By: #### L 501.4021, L500.2500, L100.0100 ####[facility] [address] [place], [address] RDW SD 50.8 fl High 35.1-43.9 [facility] Comment on above: Performed By: #### L 501.4021, L500.2500, L100.0100 ####[facility] [address] [place], [address] WBC (Bld) [#/Vol] 10.6 10*3/uL Normal 4.4-11.0 [facility] Comment on above: Performed By: #### L 501.4021, L500.2500, L100.0100 ####[facility] [address] [place], [address] Carbon dioxide, total [Moles /volume] in Central venous bloodOrdered By: Jeevan Yoder on 01-15-2025 CO2 [Moles/Vol] 25.0 mmol/L 21.0-32.0 [facility] Chest PA and Lateralon 01-15 Chest PA and Lateral Normal [facility] Chloride assayOrdered By: Kenny Yoder on 01-15-2025 Chloride [Moles/Vol] 102 mmol/L 98-108 [facility] Emergency Department Summary on 01-15-2025 Emergency Department Summary Normal [facility] Eosinophil percentageOrdered By: Jeevan Yoder on 01-15-2025 Eosinophils/100 WBC (Bld) 1.6 % 0-5 [facility] Erythrocyte distribution wid th ratioOrdered By: Jeevan Yoder on 01-15-2025 Erythrocyte distribution width (RBC) [Ratio] 16.3 % High 11.6-14.6 [facility] Erythrocyte distribution wid th standard deviationOrdered By: Jeevan Yoder on 01-15-2025 Erythrocyte distribution width (RBC) [Ratio] 50.8 fl High 35.1-43.9 [facility] Glomerular filtration rate ( GFR) estimation/1.73 sq m using serum, plasma, or whole bOrdered By: Jeevan Yoder on 01-15-2025 GFR/1.73 sq M.predicted among non-blacks MDRD (S/P/Bld) [Vol rate/Area] 63 mL/min/{1.73_m2} >60 [facility] Comment on above: mL/min/1.73m2 CKD-EP I Creatinine Equation (2020) Hematocrit Auto (Bld) [Volum e fraction]Ordered By: Jeevan Yoder on 01-15-2025 Hematocrit (Bld) [Volume fraction] 34.3 % Low 37-47 [facility] Hemoglobin measurementOrdere d By: Jeevan Yoder on 01-15-2025 Hemoglobin (Bld) [Mass/Vol] 11.0 g/dL Low 12.0-15.0 [facility] Immature granulocytes/100 WB C Auto (Bld)Ordered By: Jeevan Yoder on 01-15-2025 Immature granulocytes/100 WBC (Bld) 0.400 % 0.0-0.9 [facility] Comment on above: IG% - Immature Granu locytes (promyelocytes, myelocytes and metamyelocytes) > 1% indicates that a LEFT SHIFT is Present. L499.0042on 01-15-2025 Trop T High Sen 46 ng/L High <=14 [facility] Comment on above: Performed By: #### L 499.0042 ####[facility] [address] [place], [address] L499.0043on 01-15-2025 Trop T High Sen Normal <=14 [facility] Comment on above: Result Comment: DEP ED Performed By: #### L 499.0043 ####[facility] [address] [place], [address] L501.4021on 01-15-2025 Trop T High Sen 46 ng/L High <=14 [facility] Comment on above: Performed By: #### L 501.4021, L500.2500, L100.0100 ####[facility] [address] [place], [address] L503.7505on 01-15-2025 Natriuretic peptide B (Bld) [Mass/Vol] 4224 pg/mL High <=1800 [facility] Comment on above: Result Comment: Hear t Failure Unlikely: < 300 pg/mLHeart Failure Likely< 50 Years: > 450 pg/mL50-75 Years: > 900 pg/mL>75 Years: > 1800 pg/mL Performed By: #### L 503.7505 ####[facility] [address] [place], [address] MCV (mean corpuscular volume ) determinationOrdered By: Jeevan Yoder on 01-15-2025 MCV (RBC) [Entitic vol] 86.6 fL 81-99 [facility] Mean corpuscular hemoglobin (MCH) determinationOrdered By: Jeevan Yoder on 01-15-2025 MCH (RBC) [Entitic mass] 27.8 pg 27.0-32.0 [facility] Mean corpuscular hemoglobin concentration (MCHC) determinationOrdered By: Jeevan Yoder on 01-15-2025 MCHC (RBC) [Mass/Vol] 32.1 g/dL 32-36 [facility] Mean platelet volume determi nationOrdered By: Jeevan Yoder on 01-15-2025 Platelet mean volume (Bld) [Entitic vol] 10.5 fL 6.2-12.0 [facility] Monocyte percentageOrdered B y: Jeevan Yoder on 01-15-2025 Monocytes/100 WBC (Bld) 6.9 % 0-10 [facility] Natriuretic peptide.B prohor hayley N-Terminal [Mass/volume] in Serum or PlasmaOrdered By: Jeevan Yoder on 01-15-2025 Natriuretic peptide.B prohormone N-Terminal [Mass/Vol] 4224 pg/mL High <1800 [facility] Comment on above: Heart Failure Unlike ly: < 300 pg/mLHeart Failure Likely< 50 Years: > 450 pg/mL50-75 Years: > 900 pg/mL>75 Years: > 1800 pg/mL Neutrophil percentageOrdered By: Jeevan Yoder on 05-18-2025 Neutrophils/100 WBC (Bld) 72.7 % High 47-70 [facility] Nucleated red blood cell per centageOrdered By: Jeevan Yoder on 01-15-2025 Nucleated RBC/100 WBC (Bld) [Ratio] 0 % 0-5 [facility] Platelet countOrdered By: Kenny Yoder on 01-15-2025 Platelets (Bld) [#/Vol] 256 10*3/uL 150-450 [facility] Potassium measurement (mass/ volume)Ordered By: Jeevan Yoder on 01-15-2025 Potassium (Unsp spec) [Mass/Vol] 3.7 mmol/L 3.3-5.1 [facility] RBC Auto (Bld) [#/Vol]Ordere d By: Jeevan Yoder on 01-15-2025 RBC (Bld) [#/Vol] 3.96 10*6/uL Low 4.2-5.4 [facility] Serum creatinine measurement (mass/volume)Ordered By: Jeevan Yoder on 01-15-2025 Creatinine [Mass/Vol] 0.92 mg/dL 0.70-1.20 [facility] Serum glucose measurement (m ass/volume)Ordered By: Jeevan Yoder on 01-15-2025 Glucose [Mass/Vol] 144 mg/dL High 70-99 [facility] Serum or plasma calcium melanie urement (mass/volume)Ordered By: Jeevan Yoder on 01-15-2025 Calcium [Mass/Vol] 9.6 mg/dL 7.6-11.0 [facility] Serum or plasma urea nitroge n measurement (mass/volume)Ordered By: Jeevan Yoder on 01-15-2025 Urea nitrogen [Mass/Vol] 15 mg/dL 4-19 [facility] Sodium levelOrdered By: Marcelino Yoder on 01-15-2025 Sodium [Moles/Vol] 138 mmol/L 133-145 [facility] Troponin T.cardiac [Mass/vol ume] in Serum or Plasma by High sensitivity methodOrdered By: Jeevan Yoder on 01-15-2025 Troponin T.cardiac High sensitivity method [Mass/Vol] 46 ng/L High <14 [facility] Troponin T.cardiac High sensitivity method [Mass/Vol] 46 ng/L High <14 [facility] White blood cell (WBC) count Ordered By: Jeevan Yoder on 01-15-2025 WBC (Bld) [#/Vol] 10.6 10*3/uL 4.4-11.0 [facility] 12 Lead EKGon 01-07-2025 12 Lead EKG Normal [facility] Absolute lymphocyte countOrd ered By: Ethan Darnell on 01-07-2025 Lymphocytes Auto (Unsp spec) [#/Vol] 2.89 10*3/uL 0.83-4.51 [facility] Absolute neutrophil countOrd ered By: Ethan Darnell on 01-07-2025 Neutrophils (Bld) [#/Vol] 5.3 10*3/uL 2.0-7.7 [facility] Anion gap in Serum or Plasma Ordered By: Ethan Darnell on 01-07-2025 Anion gap [Moles/Vol] 11 mmol/L - [facility] Automated lymphocyte count a s percentage of total leukocytesOrdered By: Ethan Darnell on 01-07-2025 Lymphocytes/100 WBC Auto (Unsp spec) 31.8 % - [facility] BUN/creatinine ratioOrdered By: Ethan Darnell on 01-07-2025 Urea nitrogen/Creatinine [Mass ratio] 15.5 mg/mg - [facility] Basic Metabolic Profile (BMP )on 01-07-2025 BUN/CRE 15.5 RATIO Normal - [facility] Comment on above: Performed By: #### L 100.0100, L500.2500 ####[facility] [address] [place], [address] Calcium [Mass/Vol] 10.3 mg/dL Normal 7.6-11.0 [facility] Comment on above: Performed By: #### L 100.0100, L500.2500 ####[facility] [address] [place], [address] Chloride [Moles/Vol] 99 mmol/L Normal 98-108 [facility] Comment on above: Performed By: #### L 100.0100, L500.2500 ####[facility] [address] [place], [address] CO2 [Moles/Vol] 22.5 mmol/L Normal 21.0-32.0 [facility] Comment on above: Performed By: #### L 100.0100, L500.2500 ####[facility] [address] [place], [address] Creatinine [Mass/Vol] 0.90 mg/dL Normal 0.70-1.20 [facility] Comment on above: Performed By: #### L 100.0100, L500.2500 ####[facility] [address] [place], [address] ECRCL 49.31 ml/min Low 50-250 [facility] Comment on above: Performed By: #### L 100.0100, L500.2500 ####[facility] [address] [place], [address] GAP 11 Normal 5-15 [facility] Comment on above: Performed By: #### L 100.0100, L500.2500 ####[facility] [address] [place], [address] GFR/1.73 sq M.predicted among non-blacks MDRD (S/P/Bld) [Vol rate/Area] 64 mL/min/{1.73_m2} Normal >60 [facility] Comment on above: Result Comment: mL/m in/1.73m2 CKD-EPI Creatinine Equation (2020) Performed By: #### L 100.0100, L500.2500 ####[facility] [address] [place], [address] Glucose [Mass/Vol] 321 mg/dL High 70-99 [facility] Comment on above: Performed By: #### L 100.0100, L500.2500 ####[facility] [address] [place], [address] Potassium [Moles/Vol] 3.8 mmol/L Normal 3.3-5.1 [facility] Comment on above: Result Comment: Hemo lysis present, Results??could be affected.?? Performed By: #### L 100.0100, L500.2500 ####[facility] [address] [place], [address] Sodium [Moles/Vol] 133 mmol/L Normal 133-145 [facility] Comment on above: Performed By: #### L 100.0100, L500.2500 ####[facility] [address] [place], [address] Urea nitrogen [Mass/Vol] 14 mg/dL Normal 4-19 [facility] Comment on above: Performed By: #### L 100.0100, L500.2500 ####[facility] [address] [place], [address] Basophil percentageOrdered B y: Ethan Le on 01-07-2025 Basophils/100 WBC (Bld) 0.5 % 0-1 [facility] Bedside Glucoseon 01-07-2025 FINGERSTICK GLU 316 mg/dL High 74-106 [facility] Comment on above: Result Comment: KATARINA ANGELAENT OF PATIENT CARE PER NURSING PROTOCOL Performed By: #### L 501.080 ####[facility] [address] [place], [address] CBC W/Diff, Automatedon 12-29 0-2024 Absolute Lymph 2.89 X10 3/uL Normal 0.83-4.51 [facility] Comment on above: Performed By: #### L 100.0100, L500.2500 ####[facility] [address] [place], [address] Absolute Neut 5.3 X10 3/uL Normal 2.0-7.7 [facility] Comment on above: Performed By: #### L 100.0100, L500.2500 ####[facility] [address] [place], [address] Basophils/100 WBC (Bld) 0.5 % Normal 0-1 [facility] Comment on above: Performed By: #### L 100.0100, L500.2500 ####[facility] [address] [place], [address] Eosinophils/100 WBC (Bld) 1.9 % Normal 0-5 [facility] Comment on above: Performed By: #### L 100.0100, L500.2500 ####[facility] [address] [place], [address] Erythrocyte distribution width (RBC) [Ratio] 15.7 % High 11.6-14.6 [facility] Comment on above: Performed By: #### L 100.0100, L500.2500 ####[facility] [address] [place], [address] Hematocrit (Bld) [Volume fraction] 34.0 % Low 37-47 [facility] Comment on above: Performed By: #### L 100.0100, L500.2500 ####[facility] [address] [place], [address] Hemoglobin (Bld) [Mass/Vol] 10.5 g/dL Low 12.0-15.0 [facility] Comment on above: Performed By: #### L 100.0100, L500.2500 ####[facility] [address] [place], [address] IG% 0.200 Normal 0.0-0.9 [facility] Comment on above: Result Comment: IG% - Immature Granulocytes (promyelocytes, myelocytes andmetamyelocytes) > 1% indicates that a LEFT SHIFT is Present. Performed By: #### L 100.0100, L500.2500 ####[facility] [address] [place], [address] Lymphocytes/100 WBC (Bld) 31.8 % Normal 19-41 [facility] Comment on above: Performed By: #### L 100.0100, L500.2500 ####[facility] [address] [place], [address] MCH (RBC) [Entitic mass] 26.9 pg Low 27.0-32.0 [facility] Comment on above: Performed By: #### L 100.0100, L500.2500 ####[facility] [address] [place], [address] MCHC (RBC) [Mass/Vol] 30.9 g/dL Low 32-36 [facility] Comment on above: Performed By: #### L 100.0100, L500.2500 ####[facility] [address] [place], [address] MCV (RBC) [Entitic vol] 87.0 fL Normal 81-99 [facility] Comment on above: Performed By: #### L 100.0100, L500.2500 ####[facility] [address] [place], [address] Monocytes/100 WBC (Bld) 7.6 % Normal 0-10 [facility] Comment on above: Performed By: #### L 100.0100, L500.2500 ####[facility] [address] [place], [address] Neutrophils/100 WBC (Bld) 58.0 % Normal 47-70 [facility] Comment on above: Performed By: #### L 100.0100, L500.2500 ####[facility] [address] [place], [address] Nucleated RBC (Bld) [#/Vol] 0 10*3/uL Normal 0-5 [facility] Comment on above: Performed By: #### L 100.0100, L500.2500 ####[facility] [address] [place], [address] Platelet mean volume (Bld) [Entitic vol] 11.1 fL Normal 6.2-12.0 [facility] Comment on above: Performed By: #### L 100.0100, L500.2500 ####[facility] [address] [place], [address] Platelets (Bld) [#/Vol] 237 10*3/uL Normal 150-450 [facility] Comment on above: Performed By: #### L 100.0100, L500.2500 ####[facility] [address] [place], [address] RBC (Bld) [#/Vol] 3.91 10*6/uL Low 4.2-5.4 [facility] Comment on above: Performed By: #### L 100.0100, L500.2500 ####[facility] [address] [place], [address] RDW SD 49.4 fl High 35.1-43.9 [facility] Comment on above: Performed By: #### L 100.0100, L500.2500 ####[facility] [address] [place], [address] WBC (Bld) [#/Vol] 9.1 10*3/uL Normal 4.4-11.0 [facility] Comment on above: Performed By: #### L 100.0100, L500.2500 ####[facility] [address] [place], [address] Carbon dioxide, total [Moles /volume] in Central venous bloodOrdered By: Ethan Darnell on 01-07-2025 CO2 [Moles/Vol] 22.5 mmol/L 21.0-32.0 [facility] Chest PA and Lateralon 01-07 Chest PA and Lateral Normal [facility] Chloride assayOrdered By: Albaro Darnell on 01-07-2025 Chloride [Moles/Vol] 99 mmol/L 98-108 [facility] Emergency Department Summary on 01-07-2025 Emergency Department Summary Normal [facility] Eosinophil percentageOrdered By: Ethan Darnell on 01-07-2025 Eosinophils/100 WBC (Bld) 1.9 % 0-5 [facility] Erythrocyte distribution wid th ratioOrdered By: Ethan Darnell on 01-07-2025 Erythrocyte distribution width (RBC) [Ratio] 15.7 % High 11.6-14.6 [facility] Erythrocyte distribution wid th standard deviationOrdered By: Ethan Darnell on 01-07-2025 Erythrocyte distribution width (RBC) [Ratio] 49.4 fl High 35.1-43.9 [facility] Glomerular filtration rate ( GFR) estimation/1.73 sq m using serum, plasma, or whole bOrdered By: Ethan Darnell on 01-07-2025 GFR/1.73 sq M.predicted among non-blacks MDRD (S/P/Bld) [Vol rate/Area] 64 mL/min/{1.73_m2} >60 [facility] Comment on above: mL/min/1.73m2 CKD-EP I Creatinine Equation (2020) [facility]dered By: Ethan Darnell on 01-07-2025 Glucose [Mass/Vol] 316 mg/dL High 74-106 [facility] Comment on above: MANAGEMENT OF PATIEN T CARE PER NURSING PROTOCOL Hematocrit Auto (Bld) [Volum e fraction]Ordered By: Ethan Darnell on 01-07-2025 Hematocrit (Bld) [Volume fraction] 34.0 % Low 37-47 [facility] Hemoglobin measurementOrdere d By: Ethan Darnell on 01-07-2025 Hemoglobin (Bld) [Mass/Vol] 10.5 g/dL Low 12.0-15.0 [facility] Immature granulocytes/100 WB C Auto (Bld)Ordered By: Ethan Darnell on 01-07-2025 Immature granulocytes/100 WBC (Bld) 0.200 % 0.0-0.9 [facility] Comment on above: IG% - Immature Granu locytes (promyelocytes, myelocytes and metamyelocytes) > 1% indicates that a LEFT SHIFT is Present. Influenza virus A and B and SARS-CoV-2 (COVID-19) and Respiratory syncytial virus RNAOrdered By: Ethan Darnell on 01-07-2025 SARS-CoV-2 (COVID-19) RNA BEBETO+probe Ql (Unsp spec) [facility] M100.678on 01-07-2025 M100.678 SARS-CoV-2 (COVID 19 ) Negative INFLUENZA A Negative INFLUENZA B Negative RSV PCR Negative Normal [facility] Comment on above: Performed By: #### M 100.678 ####[facility] [address] [place], [address] MCV (mean corpuscular volume ) determinationOrdered By: Ethan Darnell on 01-07-2025 MCV (RBC) [Entitic vol] 87.0 fL 81-99 [facility] Mean corpuscular hemoglobin (MCH) determinationOrdered By: Ethan Darnell on 01-07-2025 MCH (RBC) [Entitic mass] 26.9 pg Low 27.0-32.0 [facility] Mean corpuscular hemoglobin concentration (MCHC) determinationOrdered By: Ethan Darnell on 01-07-2025 MCHC (RBC) [Mass/Vol] 30.9 g/dL Low 32-36 [facility] Mean platelet volume determi nationOrdered By: Ethan Darnell on 01-07-2025 Platelet mean volume (Bld) [Entitic vol] 11.1 fL 6.2-12.0 [facility] Monocyte percentageOrdered B y: Ethan Darnell on 01-07-2025 Monocytes/100 WBC (Bld) 7.6 % 0-10 [facility] Neutrophil percentageOrdered By: Ethan Darnell on 01-07-2025 Neutrophils/100 WBC (Bld) 58.0 % 47-70 [facility] Nucleated red blood cell per centageOrdered By: Ethan Darnell on 01-07-2025 Nucleated RBC/100 WBC (Bld) [Ratio] 0 % 0-5 [facility] Platelet countOrdered By: Albaro Darnell on 01-07-2025 Platelets (Bld) [#/Vol] 237 10*3/uL 150-450 [facility] Potassium measurement (mass/ volume)Ordered By: Etahn Darnell on 01-07-2025 Potassium (Unsp spec) [Mass/Vol] 3.8 mmol/L 3.3-5.1 [facility] Comment on above: Hemolysis present, R esults could be affected. RBC Auto (Bld) [#/Vol]Ordere d By: Ethan Darnell on 01-07-2025 RBC (Bld) [#/Vol] 3.91 10*6/uL Low 4.2-5.4 [facility] Serum creatinine measurement (mass/volume)Ordered By: Ethan Darnell on 01-07-2025 Creatinine [Mass/Vol] 0.90 mg/dL 0.70-1.20 [facility] Serum glucose measurement (m ass/volume)Ordered By: Ethan Darnell on 01-07-2025 Glucose [Mass/Vol] 321 mg/dL High 70-99 [facility] Serum or plasma calcium melanie urement (mass/volume)Ordered By: Ethan Darnell on 01-07-2025 Calcium [Mass/Vol] 10.3 mg/dL 7.6-11.0 [facility] Serum or plasma urea nitroge n measurement (mass/volume)Ordered By: Ethan Darnell on 01-07-2025 Urea nitrogen [Mass/Vol] 14 mg/dL 4-19 [facility] Sodium levelOrdered By: Ethan Darnell on 01-07-2025 Sodium [Moles/Vol] 133 mmol/L 133-145 [facility] White blood cell (WBC) count Ordered By: Ethan Darnell on 01-07-2025 WBC (Bld) [#/Vol] 9.1 10*3/uL 4.4-11.0 [facility] Inital Evaluation (1) - PTon 10-13-2024 Inital Evaluation (1) - PT Normal [facility] Albumin to globulin ratioOrd ered By: Ramone Smiley on 09-27-2024 Albumin/Globulin [Mass ratio] 0.6 {ratio} Low 0.9-2.4 [facility] Bilirubin, totalOrdered By: Ramone Smiley on 09-27-2024 Bilirubin [Mass/Vol] 0.20 mg/dL 0.20-1.00 [facility] Comment on above: For patients on eltr ombopag therapy, use of Dimension [place] TBIL is not recommended. Blood urea nitrogen (BUN)/cr eatinine ratioOrdered By: Ramone Smiley on 09-27-2024 Urea nitrogen/Creatinine [Mass ratio] 12.7 mg/mg 10-20 [facility] CBC-Complete Blood Cnt No Di ffon 09-27-2024 Erythrocyte distribution width (RBC) [Ratio] 15.9 % High 11.6-14.6 [facility] Comment on above: Order Comment: Order Date: 09/27/24Order Info: [id number] - CBC Performed By: #### L 500.4050, L100.0500 ####[facility] [address] [place], [address] Hematocrit (Bld) [Volume fraction] 35.7 % Low 37-47 [facility] Comment on above: Order Comment: Order Date: 09/27/24Order Info: [id number] - CBC Performed By: #### L 500.4050, L100.0500 ####[facility] [address] [place], [address] Hemoglobin (Bld) [Mass/Vol] 11.0 g/dL Low 12.0-15.0 [facility] Comment on above: Order Comment: Order Date: 09/27/24Order Info: [id number] - CBC Performed By: #### L 500.4050, L100.0500 ####[facility] [address] [place], [address] MCH (RBC) [Entitic mass] 25.8 pg Low 27.0-32.0 [facility] Comment on above: Order Comment: Order Date: 09/27/24Order Info: [id number] - CBC Performed By: #### L 500.4050, L100.0500 ####[facility] [address] [place], [address] MCHC (RBC) [Mass/Vol] 30.8 g/dL Low 32-36 [facility] Comment on above: Order Comment: Order Date: 09/27/24Order Info: [id number] - CBC Performed By: #### L 500.4050, L100.0500 ####[facility] [address] [place], [address] MCV (RBC) [Entitic vol] 83.6 fL Normal 81-99 [facility] Comment on above: Order Comment: Order Date: 09/27/24Order Info: [id number] - CBC Performed By: #### L 500.4050, L100.0500 ####[facility] [address] [place], [address] Platelet mean volume (Bld) [Entitic vol] 11.3 fL Normal 6.2-12.0 [facility] Comment on above: Order Comment: Order Date: 09/27/24Order Info: [id number] - CBC Performed By: #### L 500.4050, L100.0500 ####[facility] [address] [place], [address] Platelets (Bld) [#/Vol] 287 10*3/uL Normal 150-450 [facility] Comment on above: Order Comment: Order Date: 09/27/24Order Info: [id number] - CBC Performed By: #### L 500.4050, L100.0500 ####[facility] [address] [place], [address] RBC (Bld) [#/Vol] 4.27 10*6/uL Normal 4.2-5.4 [facility] Comment on above: Order Comment: Order Date: 09/27/24Order Info: [id number] - CBC Performed By: #### L 500.4050, L100.0500 ####[facility] [address] [place], [address] RDW SD 47.4 fl High 35.1-43.9 [facility] Comment on above: Order Comment: Order Date: 09/27/24Order Info: [id number] - CBC Performed By: #### L 500.4050, L100.0500 ####[facility] [address] [place], [address] WBC (Bld) [#/Vol] 8.6 10*3/uL Normal 4.4-11.0 [facility] Comment on above: Order Comment: Order Date: 09/27/24Order Info: [id number] - CBC Performed By: #### L 500.4050, L100.0500 ####[facility] [address] [place], [address] Carbon dioxide measurementOr dered By: Ramone Smiley on 09-27-2024 CO2 [Moles/Vol] 28.0 mmol/L 21.0-32.0 [facility] Chloride measurementOrdered By: Ramone Smiley on 09-27-2024 Chloride [Moles/Vol] 101 mmol/L 98-107 [facility] Comprehensive Metabolic Prof ilon 09-27-2024 Albumin [Mass/Vol] 3.0 g/dL Low 3.2-5.0 [facility] Comment on above: Order Comment: Order Date: 09/27/24Order Info: [id number] - CMPOrder Info: [id number] - CRE Performed By: #### L 500.4050, L100.0500 ####[facility] [address] [place], [address] Albumin/Globulin [Mass ratio] 0.6 {ratio} Low 0.9-2.4 [facility] Comment on above: Order Comment: Order Date: 09/27/24Order Info: [id number] - CMPOrder Info: [id number] - CRE Performed By: #### L 500.4050, L100.0500 ####[facility] [address] [place], [address] ALK P 145 U/L High 45-117 [facility] Comment on above: Order Comment: Order Date: 09/27/24Order Info: [id number] - CMPOrder Info: [id number] - CRE Performed By: #### L 500.4050, L100.0500 ####[facility] [address] [place], [address] ALT [Catalytic activity/Vol] 16 U/L Normal 13-56 [facility] Comment on above: Order Comment: Order Date: 09/27/24Order Info: [id number] - CMPOrder Info: [id number] - CRE Performed By: #### L 500.4050, L100.0500 ####[facility] [address] [place], [address] AST [Catalytic activity/Vol] 16 U/L Normal 15-37 [facility] Comment on above: Order Comment: Order Date: 09/27/24Order Info: [id number] - CMPOrder Info: [id number] - CRE Performed By: #### L 500.4050, L100.0500 ####[facility] [address] [place], [address] Bilirubin [Mass/Vol] 0.20 mg/dL Normal 0.20-1.00 [facility] Comment on above: Order Comment: Order Date: 09/27/24Order Info: [id number] - CMPOrder Info: [id number] - CRE Result Comment: For patients on eltrombopag therapy, use of Dimension [place] TBIL is not recommended. Performed By: #### L 500.4050, L100.0500 ####[facility] [address] [place], [address] BUN/CRE 12.7 RATIO Normal 10-20 [facility] Comment on above: Order Comment: Order Date: 09/27/24Order Info: [id number] - CMPOrder Info: [id number] - CRE Performed By: #### L 500.4050, L100.0500 ####[facility] [address] [place], [address] CA,Total 11.0 mg/dL High 8.5-10.1 [facility] Comment on above: Order Comment: Order Date: 09/27/24Order Info: [id number] - CMPOrder Info: [id number] - CRE Performed By: #### L 500.4050, L100.0500 ####[facility] [address] [place], [address] Chloride [Moles/Vol] 101 mmol/L Normal 98-107 [facility] Comment on above: Order Comment: Order Date: 09/27/24Order Info: [id number] - CMPOrder Info: [id number]- - CRE Performed By: #### L 500.4050, L100.0500 ####[facility] [address] [place], [address] CO2 [Moles/Vol] 28.0 mmol/L Normal 21.0-32.0 [facility] Comment on above: Order Comment: Order Date: 09/27/24Order Info: [id number] - CMPOrder Info: [id number]- - CRE Performed By: #### L 500.4050, L100.0500 ####[facility] [address] [place], [address] Creatinine [Mass/Vol] 0.86 mg/dL Normal 0.55-1.02 [facility] Comment on above: Order Comment: Order Date: 09/27/24Order Info: 07- - CMPOrder Info: [id number] - CRE Result Comment: The validity of the calculated GFR GFRAA in patients over70 years has not been determined. Clinical correlation isessential. Performed By: #### L 500.4050, L100.0500 ####[facility] [address] [place], [address] EST GFR - AA 81 mL/min Normal >60 [facility] Comment on above: Order Comment: Order Date: 09/27/24Order Info: [id number] - CMPOrder Info: [id number] - CRE Result Comment: Afri can Vietnamese GFR Calc Performed By: #### L 500.4050, L100.0500 ####[facility] [address] [place], [address] GAP 8 Normal 5-15 [facility] Comment on above: Order Comment: Order Date: 09/27/24Order Info: [id number] - CMPOrder Info: [id number] - CRE Performed By: #### L 500.4050, L100.0500 ####[facility] [address] [place], [address] GFR/1.73 sq M.predicted among non-blacks MDRD (S/P/Bld) [Vol rate/Area] 67 mL/min/{1.73_m2} Normal >60 [facility] Comment on above: Order Comment: Order Date: 09/27/24Order Info: [id number]- - CMPOrder Info: [id number] - CRE Result Comment: Non- GFR Calc Performed By: #### L 500.4050, L100.0500 ####[facility] [address] [place], [address] Globulin (S) [Mass/Vol] 5.0 g/dL High 2.2-4.2 [facility] Comment on above: Order Comment: Order Date: 09/27/24Order Info: [id number] - CMPOrder Info: [id number] - CRE Performed By: #### L 500.4050, L100.0500 ####[facility] [address] [place], [address] Glucose [Mass/Vol] 144 mg/dL High 74-106 [facility] Comment on above: Order Comment: Order Date: 09/27/24Order Info: [id number] - CMPOrder Info: [id number] - CRE Result Comment: Fast ing Glucose result greater than or equal to 126 mg/dLsuggests DIABETES MELLITUS per A.D.A. criteria. Performed By: #### L 500.4050, L100.0500 ####[facility] [address] [place], [address] Potassium [Moles/Vol] 3.5 mmol/L Normal 3.5-5.1 [facility] Comment on above: Order Comment: Order Date: 09/27/24Order Info: [id number] - CMPOrder Info: [id number] - CRE Performed By: #### L 500.4050, L100.0500 ####[facility] [address] [place], [address] Sodium [Moles/Vol] 138 mmol/L Normal 136-145 [facility] Comment on above: Order Comment: Order Date: 09/27/24Order Info: [id number] - CMPOrder Info: [id number]- - CRE Performed By: #### L 500.4050, L100.0500 ####[facility] [address] [place], [address] T PROT 8.0 g/dL Normal 6.4-8.2 [facility] Comment on above: Order Comment: Order Date: 09/27/24Order Info: [id number] - CMPOrder Info: [id number]- - CRE Performed By: #### L 500.4050, L100.0500 ####[facility] [address] [place], [address] Urea nitrogen [Mass/Vol] 11 mg/dL Normal 7-18 [facility] Comment on above: Order Comment: Order Date: 09/27/24Order Info: [id number] - CMPOrder Info: [id number] - CRE Performed By: #### L 500.4050, L100.0500 ####[facility] [address] [place], [address] Erythrocyte distribution wid th ratioOrdered By: Ramone Smiley on 09-27-2024 Erythrocyte distribution width (RBC) [Ratio] 15.9 % High 11.6-14.6 [facility] Erythrocyte distribution wid th standard deviationOrdered By: Ramone Smiley on 09-27-2024 Erythrocyte distribution width (RBC) [Ratio] 47.4 fl High 35.1-43.9 [facility] Glomerular filtration rate ( GFR) estimationOrdered By: Ramone Smiley on 09-27-2024 GFR/1.73 sq M.predicted among non-blacks MDRD (S/P/Bld) [Vol rate/Area] 67 mL/min/{1.73_m2} >60 [facility] Comment on above: Non- GFR Calc Glucose measurementOrdered B y: Ramone Smiley on 09-27-2024 Glucose [Mass/Vol] 144 mg/dL High 74-106 [facility] Comment on above: Fasting Glucose resu lt greater than or equal to 126 mg/dL suggests DIABETES MELLITUS per A.D.A. criteria. Hematocrit Auto (Bld) [Volum e fraction]Ordered By: Ramone Smiley on 09-27-2024 Hematocrit (Bld) [Volume fraction] 35.7 % Low 37-47 [facility] Hemoglobin measurementOrdere d By: Ramone Smiley on 09-27-2024 Hemoglobin (Bld) [Mass/Vol] 11.0 g/dL Low 12.0-15.0 [facility] Laboratory - Chemistry and C hemistry - challengeOrdered By: Ramone Smiley on 09-27-2024 AST [Catalytic activity/Vol] 16 U/L [facility] MCV (mean corpuscular volume ) determinationOrdered By: Ramone Smiley on 09-27-2024 MCV (RBC) [Entitic vol] 83.6 fL 81-99 [facility] Mean corpuscular hemoglobin (MCH) determinationOrdered By: Ramone Smiley on 09-27-2024 MCH (RBC) [Entitic mass] 25.8 pg Low 27.0-32.0 [facility] Mean corpuscular hemoglobin concentration (MCHC) determinationOrdered By: Ramone Smiley on 09-27-2024 MCHC (RBC) [Mass/Vol] 30.8 g/dL Low 32-36 [facility] Mean platelet volume determi nationOrdered By: Ramone Smiley on 09-27-2024 Platelet mean volume (Bld) [Entitic vol] 11.3 fL 6.2-12.0 [facility] No Panel InformationOrdered By: Ramone Smiley on 09-27-2024 16 U/L [facility] Platelet countOrdered By: Richar Smiley on 09-27-2024 Platelets (Bld) [#/Vol] 287 10*3/uL 150-450 [facility] Potassium measurementOrdered By: Ramone Smiley on 09-27-2024 Potassium [Moles/Vol] 3.5 mmol/L 3.5-5.1 [facility] RBC Auto (Bld) [#/Vol]Ordere d By: Ramone Smiley on 09-27-2024 RBC (Bld) [#/Vol] 4.27 10*6/uL 4.2-5.4 [facility] Serum anion gap measurementO rdered By: Ramone Smiley on 09-27-2024 Anion gap [Moles/Vol] 8 mmol/L 5-15 [facility] Serum globulin measurementOr dered By: Ramone Smiley on 09-27-2024 Globulin (S) [Mass/Vol] 5.0 g/dL High 2.2-4.2 [facility] Serum or plasma alanine kelley otransferase (ALT) measurementOrdered By: Ramone Smiley on 09-27-2024 ALT [Catalytic activity/Vol] 16 U/L 13-56 [facility] Serum or plasma albumin melanie urement (mass/volume)Ordered By: Ramone Smiley on 09-27-2024 Albumin [Mass/Vol] 3.0 g/dL Low 3.2-5.0 [facility] Serum or plasma alkaline lissa sphatase measurementOrdered By: Ramone Smiley on 09-27-2024 ALP [Catalytic activity/Vol] 145 U/L High 45-117 [facility] Serum or plasma calcium melanie urement (mass/volume)Ordered By: Ramone Smiley on 09-27-2024 Calcium [Mass/Vol] 11.0 mg/dL High 8.5-10.1 [facility] Serum or plasma creatinine m easurement (mass/volume)Ordered By: Ramone Smiley on 09-27-2024 Creatinine [Mass/Vol] 0.86 mg/dL 0.55-1.02 [facility] Comment on above: The validity of the calculated GFR & GFRAA in patients over 70 years has not been determined. Clinical correlation is essential. Serum or plasma urea nitroge n measurement (mass/volume)Ordered By: Ramone Smiley on 09-27-2024 Urea nitrogen [Mass/Vol] 11 mg/dL 7-18 [facility] Sodium levelOrdered By: Ramone Smiley on 09-27-2024 Sodium [Moles/Vol] 138 mmol/L 136-145 [facility] Total proteinOrdered By: Lilliam Smiley on 09-27-2024 Protein [Mass/Vol] 8.0 g/dL 6.4-8.2 [facility] White blood cell (WBC) count Ordered By: Ramone Smiley on 09-27-2024 WBC (Bld) [#/Vol] 8.6 10*3/uL 4.4-11.0 [facility] Kidney and Bladderon 024 Kidney and Bladder Normal [facility] BNP,B-Type NATRIURETIC PEPTI Ishaan 06-19-2024 Natriuretic peptide B (Bld) [Mass/Vol] 81.6 pg/mL Normal 0-100 [facility] Comment on above: Performed By: #### L 100.0100, L500.2500, L503.6620 ####[facility] [address] [place], [address] Basic Metabolic Profile (BMP )on 06-19-2024 BUN/CRE 9.3 RATIO Low 06-19 [facility] Comment on above: Performed By: #### L 100.0100, L500.2500, L503.6620 ####[facility] [address] [place], [address] CA,Total 11.0 mg/dL High 8.5-10.1 [facility] Comment on above: Performed By: #### L 100.0100, L500.2500, L503.6620 ####[facility] [address] [place], [address] Chloride [Moles/Vol] 104 mmol/L Normal 98-107 [facility] Comment on above: Performed By: #### L 100.0100, L500.2500, L503.6620 ####[facility] [address] [place], [address] CO2 [Moles/Vol] 26.0 mmol/L Normal 21.0-32.0 [facility] Comment on above: Performed By: #### L 100.0100, L500.2500, L503.6620 ####[facility] [address] [place], [address] Creatinine [Mass/Vol] 1.08 mg/dL High 0.55-1.02 [facility] Comment on above: Result Comment: The validity of the calculated GFR GFRAA in patients over70 years has not been determined. Clinical correlation isessential. Performed By: #### L 100.0100, L500.2500, L503.6620 ####[facility] [address] [place], [address] EST GFR - AA 63 mL/min Normal >60 [facility] Comment on above: Result Comment: Afri can Vietnamese GFR Calc Performed By: #### L 100.0100, L500.2500, L503.6620 ####[facility] [address] [place], [address] GAP 6 Normal 5-15 [facility] Comment on above: Performed By: #### L 100.0100, L500.2500, L503.6620 ####[facility] [address] [place], [address] GFR/1.73 sq M.predicted among non-blacks MDRD (S/P/Bld) [Vol rate/Area] 52 mL/min/{1.73_m2} Low >60 [facility] Comment on above: Result Comment: Non- GFR Calc Performed By: #### L 100.0100, L500.2500, L503.6620 ####[facility] [address] [place], [address] Glucose [Mass/Vol] 263 mg/dL High 74-106 [facility] Comment on above: Result Comment: Gluc ose result greater than or equal to 200 mg/dLsuggests DIABETES MELLITUS per A.D.A. criteria. Performed By: #### L 100.0100, L500.2500, L503.6620 ####[facility] [address] [place], [address] Potassium [Moles/Vol] 4.4 mmol/L Normal 3.5-5.1 [facility] Comment on above: Performed By: #### L 100.0100, L500.2500, L503.6620 ####[facility] [address] [place], [address] Sodium [Moles/Vol] 137 mmol/L Normal 136-145 [facility] Comment on above: Performed By: #### L 100.0100, L500.2500, L503.6620 ####[facility] [address] [place], [address] Urea nitrogen [Mass/Vol] 10 mg/dL Normal 7-18 [facility] Comment on above: Performed By: #### L 100.0100, L500.2500, L503.6620 ####[facility] [address] [place], [address] CBC W/Diff, Automatedon 10-2 0-2024 Absolute Lymph 2.32 X10 3/uL Normal 0.83-4.51 [facility] Comment on above: Performed By: #### L 100.0100, L500.2500, L503.6620 ####[facility] [address] [place], [address] Absolute Neut 4.7 X10 3/uL Normal 2.0-7.7 [facility] Comment on above: Performed By: #### L 100.0100, L500.2500, L503.6620 ####[facility] [address] [place], [address] Basophils/100 WBC (Bld) 0.5 % Normal 0-1 [facility] Comment on above: Performed By: #### L 100.0100, L500.2500, L503.6620 ####[facility] [address] [place], [address] Eosinophils/100 WBC (Bld) 8.7 % High 0-5 [facility] Comment on above: Performed By: #### L 100.0100, L500.2500, L503.6620 ####[facility] [address] [place], [address] Erythrocyte distribution width (RBC) [Ratio] 16.6 % High 11.6-14.6 [facility] Comment on above: Performed By: #### L 100.0100, L500.2500, L503.6620 ####[facility] [address] [place], [address] Hematocrit (Bld) [Volume fraction] 36.6 % Low 37-47 [facility] Comment on above: Performed By: #### L 100.0100, L500.2500, L503.6620 ####[facility] [address] [place], [address] Hemoglobin (Bld) [Mass/Vol] 11.2 g/dL Low 12.0-15.0 [facility] Comment on above: Performed By: #### L 100.0100, L500.2500, L503.6620 ####[facility] [address] [place], [address] IG% 0.200 Normal 0.0-0.9 [facility] Comment on above: Result Comment: IG% - Immature Granulocytes (promyelocytes, myelocytes andmetamyelocytes) > 1% indicates that a LEFT SHIFT is Present. Performed By: #### L 100.0100, L500.2500, L503.6620 ####[facility] [address] [place], [address] Lymphocytes/100 WBC (Bld) 27.7 % Normal 19-41 [facility] Comment on above: Performed By: #### L 100.0100, L500.2500, L503.6620 ####[facility] [address] [place], [address] MCH (RBC) [Entitic mass] 25.6 pg Low 27.0-32.0 [facility] Comment on above: Performed By: #### L 100.0100, L500.2500, L503.6620 ####[facility] [address] [place], [address] MCHC (RBC) [Mass/Vol] 30.6 g/dL Low 32-36 [facility] Comment on above: Performed By: #### L 100.0100, L500.2500, L503.6620 ####[facility] [address] [place], [address] MCV (RBC) [Entitic vol] 83.8 fL Normal 81-99 [facility] Comment on above: Performed By: #### L 100.0100, L500.2500, L503.6620 ####[facility] [address] [place], [address] Monocytes/100 WBC (Bld) 6.7 % Normal 0-10 [facility] Comment on above: Performed By: #### L 100.0100, L500.2500, L503.6620 ####[facility] [address] [place], [address] Neutrophils/100 WBC (Bld) 56.2 % Normal 47-70 [facility] Comment on above: Performed By: #### L 100.0100, L500.2500, L503.6620 ####[facility] [address] [place], [address] Nucleated RBC (Bld) [#/Vol] 0 10*3/uL Normal 0-5 [facility] Comment on above: Performed By: #### L 100.0100, L500.2500, L503.6620 ####[facility] [address] [place], [address] Platelet mean volume (Bld) [Entitic vol] 10.4 fL Normal 6.2-12.0 [facility] Comment on above: Performed By: #### L 100.0100, L500.2500, L503.6620 ####[facility] [address] [place], [address] Platelets (Bld) [#/Vol] 234 10*3/uL Normal 150-450 [facility] Comment on above: Performed By: #### L 100.0100, L500.2500, L503.6620 ####[facility] [address] [place], [address] RBC (Bld) [#/Vol] 4.37 10*6/uL Normal 4.2-5.4 [facility] Comment on above: Performed By: #### L 100.0100, L500.2500, L503.6620 ####[facility] [address] [place], [address] RDW SD 50.9 fl High 35.1-43.9 [facility] Comment on above: Performed By: #### L 100.0100, L500.2500, L503.6620 ####[facility] [address] [place], [address] WBC (Bld) [#/Vol] 8.4 10*3/uL Normal 4.4-11.0 [facility] Comment on above: Performed By: #### L 100.0100, L500.2500, L503.6620 ####[facility] [address] [place], [address] Chest 1 View (Portable)on Chest 1 View (Portable) Normal [facility] Emergency Department Summary on 06-19-2024 Emergency Department Summary Normal [facility] 12 Lead EKGon 05-30-2024 12 Lead EKG Normal [facility] BNP,B-Type NATRIURETIC PEPTI Ishaan 05-30-2024 Natriuretic peptide B (Bld) [Mass/Vol] 108.0 pg/mL High 0-100 [facility] Comment on above: Performed By: #### L 100.0100, L500.2500, L501.4020, L503.6620 ####[facility] [address] [place], [address] Basic Metabolic Profile (BMP )on 05-30-2024 BUN/CRE 12.8 RATIO Normal 06-19 [facility] Comment on above: Order Comment: 'TROP ' Serial specimen #1, #2 or #3: 1 Performed By: #### L 100.0100, L500.2500, L501.4020, L503.6620 ####[facility] [address] [place], [address] CA,Total 11.4 mg/dL High 8.5-10.1 [facility] Comment on above: Order Comment: 'TROP ' Serial specimen #1, #2 or #3: 1 Performed By: #### L 100.0100, L500.2500, L501.4020, L503.6620 ####[facility] [address] [place], [address] Chloride [Moles/Vol] 104 mmol/L Normal 98-107 [facility] Comment on above: Order Comment: 'TROP ' Serial specimen #1, #2 or #3: 1 Performed By: #### L 100.0100, L500.2500, L501.4020, L503.6620 ####[facility] [address] [place], [address] CO2 [Moles/Vol] 28.0 mmol/L Normal 21.0-32.0 [facility] Comment on above: Order Comment: 'TROP ' Serial specimen #1, #2 or #3: 1 Performed By: #### L 100.0100, L500.2500, L501.4020, L503.6620 ####[facility] [address] [place], [address] Creatinine [Mass/Vol] 0.93 mg/dL Normal 0.55-1.02 [facility] Comment on above: Order Comment: 'TROP ' Serial specimen #1, #2 or #3: 1 Result Comment: The validity of the calculated GFR GFRAA in patients over70 years has not been determined. Clinical correlation isessential. Performed By: #### L 100.0100, L500.2500, L501.4020, L503.6620 ####[facility] [address] [place], [address] ECRCL 45.88 ml/min Normal [facility] Comment on above: Order Comment: 'TROP ' Serial specimen #1, #2 or #3: 1 Performed By: #### L 100.0100, L500.2500, L501.4020, L503.6620 ####[facility] [address] [place], [address] EST GFR - AA 74 mL/min Normal >60 [facility] Comment on above: Order Comment: 'TROP ' Serial specimen #1, #2 or #3: 1 Result Comment: Afri can Vietnamese GFR Calc Performed By: #### L 100.0100, L500.2500, L501.4020, L503.6620 ####[facility] [address] [place], [address] GAP 7 Normal 5-15 [facility] Comment on above: Order Comment: 'TROP ' Serial specimen #1, #2 or #3: 1 Performed By: #### L 100.0100, L500.2500, L501.4020, L503.6620 ####[facility] [address] [place], [address] GFR/1.73 sq M.predicted among non-blacks MDRD (S/P/Bld) [Vol rate/Area] 61 mL/min/{1.73_m2} Normal >60 [facility] Comment on above: Order Comment: 'TROP ' Serial specimen #1, #2 or #3: 1 Result Comment: Non- GFR Calc Performed By: #### L 100.0100, L500.2500, L501.4020, L503.6620 ####[facility] [address] [place], [address] Glucose [Mass/Vol] 167 mg/dL High 74-106 [facility] Comment on above: Order Comment: 'TROP ' Serial specimen #1, #2 or #3: 1 Result Comment: Fast ing Glucose result greater than or equal to 126 mg/dLsuggests DIABETES MELLITUS per A.D.A. criteria. Performed By: #### L 100.0100, L500.2500, L501.4020, L503.6620 ####[facility] [address] [place], [address] Potassium [Moles/Vol] 4.0 mmol/L Normal 3.5-5.1 [facility] Comment on above: Order Comment: 'TROP ' Serial specimen #1, #2 or #3: 1 Performed By: #### L 100.0100, L500.2500, L501.4020, L503.6620 ####[facility] [address] [place], [address] Sodium [Moles/Vol] 138 mmol/L Normal 136-145 [facility] Comment on above: Order Comment: 'TROP ' Serial specimen #1, #2 or #3: 1 Performed By: #### L 100.0100, L500.2500, L501.4020, L503.6620 ####[facility] [address] [place], [address] Urea nitrogen [Mass/Vol] 12 mg/dL Normal 7-18 [facility] Comment on above: Order Comment: 'TROP ' Serial specimen #1, #2 or #3: 1 Performed By: #### L 100.0100, L500.2500, L501.4020, L503.6620 ####[facility] [address] [place], [address] CBC W/Diff, Automatedon 05-03 PLT EST ADEQUATE Normal ADEQ [facility] Comment on above: Performed By: #### L 100.0100, L500.2500, L501.4020, L503.6620 ####[facility] [address] [place], [address] Chest PA and Lateralon 05-30 Chest PA and Lateral Normal [facility] Emergency Department Summary on 05-30-2024 Emergency Department Summary Normal [facility] L501.4020on 05-30-2024 TROPONIN-I HS 12 pg/mL Normal 3.0-54.0 [facility] Comment on above: Order Comment: 'TROP ' Serial specimen #1, #2 or #3: 1 Result Comment: Plea se Note: New Test Units and Gender Specific Reference Ranges. For more information see Policy Stat Procedure [place] High Sensitivity Troponin (TNIH) and attachments. Performed By: #### L 100.0100, L500.2500, L501.4020, L503.6620 ####[facility] [address] [place], [address] Inital Evaluation (1) - PTon 04-26-2024 Inital Evaluation (1) - PT Normal [facility] CBC W/Diff, Automatedon 03-31 Absolute Lymph 1.93 X10 3/uL Normal 0.83-4.51 [facility] Comment on above: Performed By: #### L 100.0100, L500.4050, L501.9985 ####[facility] [address] [place], [address] Absolute Neut 5.1 X10 3/uL Normal 2.0-7.7 [facility] Comment on above: Performed By: #### L 100.0100, L500.4050, L501.9985 ####[facility] [address] [place], [address] Basophils/100 WBC (Bld) 0.6 % Normal 0-1 [facility] Comment on above: Performed By: #### L 100.0100, L500.4050, L501.9985 ####[facility] [address] [place], [address] Eosinophils/100 WBC (Bld) 3.7 % Normal 0-5 [facility] Comment on above: Performed By: #### L 100.0100, L500.4050, L501.9985 ####[facility] [address] [place], [address] Erythrocyte distribution width (RBC) [Ratio] 16.0 % High 11.6-14.6 [facility] Comment on above: Performed By: #### L 100.0100, L500.4050, L501.9985 ####[facility] [address] [place], [address] Hematocrit (Bld) [Volume fraction] 34.9 % Low 37-47 [facility] Comment on above: Performed By: #### L 100.0100, L500.4050, L501.9985 ####[facility] [address] [place], [address] Hemoglobin (Bld) [Mass/Vol] 10.4 g/dL Low 12.0-15.0 [facility] Comment on above: Performed By: #### L 100.0100, L500.4050, L501.9985 ####[facility] [address] [place], [address] IG% 0.300 Normal 0.0-0.9 [facility] Comment on above: Result Comment: IG% - Immature Granulocytes (promyelocytes, myelocytes andmetamyelocytes) > 1% indicates that a LEFT SHIFT is Present. Performed By: #### L 100.0100, L500.4050, L501.9985 ####[facility] [address] [place], [address] Lymphocytes/100 WBC (Bld) 24.5 % Normal 19-41 [facility] Comment on above: Performed By: #### L 100.0100, L500.4050, L501.9985 ####[facility] [address] [place], [address] MCH (RBC) [Entitic mass] 24.4 pg Low 27.0-32.0 [facility] Comment on above: Performed By: #### L 100.0100, L500.4050, L501.9985 ####[facility] [address] [place], [address] MCHC (RBC) [Mass/Vol] 29.8 g/dL Low 32-36 [facility] Comment on above: Performed By: #### L 100.0100, L500.4050, L501.9985 ####[facility] [address] [place], [address] MCV (RBC) [Entitic vol] 81.9 fL Normal 81-99 [facility] Comment on above: Performed By: #### L 100.0100, L500.4050, L501.9985 ####[facility] [address] [place], [address] Monocytes/100 WBC (Bld) 6.8 % Normal 0-10 [facility] Comment on above: Performed By: #### L 100.0100, L500.4050, L501.9985 ####[facility] [address] [place], [address] Neutrophils/100 WBC (Bld) 64.1 % Normal 47-70 [facility] Comment on above: Performed By: #### L 100.0100, L500.4050, L501.9985 ####[facility] [address] [place], [address] Nucleated RBC (Bld) [#/Vol] 0 10*3/uL Normal 0-5 [facility] Comment on above: Performed By: #### L 100.0100, L500.4050, L501.9985 ####[facility] [address] [place], [address] Platelet mean volume (Bld) [Entitic vol] 10.7 fL Normal 6.2-12.0 [facility] Comment on above: Performed By: #### L 100.0100, L500.4050, L501.9985 ####[facility] [address] [place], [address] Platelets (Bld) [#/Vol] 294 10*3/uL Normal 150-450 [facility] Comment on above: Performed By: #### L 100.0100, L500.4050, L501.9985 ####[facility] [address] [place], [address] RBC (Bld) [#/Vol] 4.26 10*6/uL Normal 4.2-5.4 [facility] Comment on above: Performed By: #### L 100.0100, L500.4050, L501.9985 ####[facility] [address] [place], [address] RDW SD 48.0 fl High 35.1-43.9 [facility] Comment on above: Performed By: #### L 100.0100, L500.4050, L501.9985 ####[facility] [address] [place], [address] WBC (Bld) [#/Vol] 7.9 10*3/uL Normal 4.4-11.0 [facility] Comment on above: Performed By: #### L 100.0100, L500.4050, L501.9985 ####[facility] [address] [place], [address] Comprehensive Metabolic Prof ilon 04-18-2024 Albumin [Mass/Vol] 3.0 g/dL Low 3.2-5.0 [facility] Comment on above: Performed By: #### L 100.0100, L500.4050, L501.9985 ####[facility] [address] [place], [address] Albumin/Globulin [Mass ratio] 0.6 {ratio} Low 0.9-2.4 [facility] Comment on above: Performed By: #### L 100.0100, L500.4050, L501.9985 ####[facility] [address] [place], [address] ALK P 130 U/L High 45-117 [facility] Comment on above: Performed By: #### L 100.0100, L500.4050, L501.9985 ####[facility] [address] [place], [address] ALT [Catalytic activity/Vol] 14 U/L Normal 13-56 [facility] Comment on above: Performed By: #### L 100.0100, L500.4050, L501.9985 ####[facility] [address] [place], [address] AST [Catalytic activity/Vol] 22 U/L Normal 15-37 [facility] Comment on above: Performed By: #### L 100.0100, L500.4050, L501.9985 ####[facility] [address] [place], [address] Bilirubin [Mass/Vol] 0.30 mg/dL Normal 0.20-1.00 [facility] Comment on above: Result Comment: For patients on eltrombopag therapy, use of Dimension [place] TBIL is not recommended. Performed By: #### L 100.0100, L500.4050, L501.9985 ####[facility] [address] [place], [address] BUN/CRE 12.5 RATIO Normal 10-20 [facility] Comment on above: Performed By: #### L 100.0100, L500.4050, L501.9985 ####[facility] [address] [place], [address] CA,Total 11.0 mg/dL High 8.5-10.1 [facility] Comment on above: Performed By: #### L 100.0100, L500.4050, L501.9985 ####[facility] [address] [place], [address] Chloride [Moles/Vol] 101 mmol/L Normal 98-107 [facility] Comment on above: Performed By: #### L 100.0100, L500.4050, [id number] ####[facility] [address] [place], [address] CO2 [Moles/Vol] 26.0 mmol/L Normal 21.0-32.0 [facility] Comment on above: Performed By: #### L 100.0100, L500.4050, [id number] ####[facility] [address] [place], [address] Creatinine [Mass/Vol] 0.96 mg/dL Normal 0.55-1.02 [facility] Comment on above: Result Comment: The validity of the calculated GFR GFRAA in patients over70 years has not been determined. Clinical correlation isessential. Performed By: #### L 100.0100, L500.4050, [id number] ####[facility] [address] [place], [address] EST GFR - AA 72 mL/min Normal >60 [facility] Comment on above: Result Comment: Afri can Vietnamese GFR Calc Performed By: #### L 100.0100, L500.4050, [id number] ####[facility] [address] [place], [address] GAP 6 Normal 5-15 [facility] Comment on above: Performed By: #### L 100.0100, L500.4050, [id number] ####[facility] [address] [place], [address] GFR/1.73 sq M.predicted among non-blacks MDRD (S/P/Bld) [Vol rate/Area] 59 mL/min/{1.73_m2} Low >60 [facility] Comment on above: Result Comment: Non- GFR Calc Performed By: #### L 100.0100, L500.4050, [id number] ####[facility] [address] [place], [address] Globulin (S) [Mass/Vol] 5.4 g/dL High 2.2-4.2 [facility] Comment on above: Performed By: #### L 100.0100, L500.4050, [id number] ####[facility] [address] [place], [address] Glucose [Mass/Vol] 142 mg/dL High 74-106 [facility] Comment on above: Result Comment: Fast ing Glucose result greater than or equal to 126 mg/dLsuggests DIABETES MELLITUS per A.D.A. criteria. Performed By: #### L 100.0100, L500.4050, [id number] ####[facility] [address] [place], [address] Potassium [Moles/Vol] 3.5 mmol/L Normal 3.5-5.1 [facility] Comment on above: Performed By: #### L 100.0100, L500.4050, [id number] ####[facility] [address] [place], [address] Sodium [Moles/Vol] 133 mmol/L Low 136-145 [facility] Comment on above: Performed By: #### L 100.0100, L500.4050, [id number] ####[facility] [address] [place], [address] T PROT 8.4 g/dL High 6.4-8.2 [facility] Comment on above: Performed By: #### L 100.0100, L500.4050, [id number] ####[facility] [address] [place], [address] Urea nitrogen [Mass/Vol] 12 mg/dL Normal 7-18 [facility] Comment on above: Performed By: #### L 100.0100, L500.4050, [id number] ####[facility] [address] [place], [address] Hemoglobin A1con 04-18-2024 HbA1c (Bld) [Mass fraction] 8.2 % High 3.8-5.6 [facility] Comment on above: Result Comment: Norm al < 5.7 % Prediabetic 5.7 - 6.4 % Diabetic >or= 6.5 % Please note range changes. Performed By: #### L 100.0100, L500.4050, [id number] ####[facility] [address] [place], [address] Absolute lymphocyte countOrd ered By: Sunny Bell on 12-30-2023 Lymphocytes Auto (Unsp spec) [#/Vol] 2.48 10*3/uL 0.83-4.51 [facility] Automated lymphocyte count a s percentage of total leukocytesOrdered By: Sunny Bell on 12-30-2023 Lymphocytes/100 WBC Auto (Unsp spec) 25.3 % 19-41 [facility] Basophil percentageOrdered B y: Sunny Bell on 12-30-2023 Basophils/100 WBC (Bld) 0.3 % 0-1 [facility] Chloride [Moles/Vol] 104 mmol/L 98-107 [facility] Eosinophils/100 WBC (Bld) 1.4 % 0-5 [facility] Glucose [Mass/Vol] 127 mg/dL 74-106 [facility] Comment on above: Fasting Glucose resu lt greater than or equal to 126 mg/dL suggests DIABETES MELLITUS per A.D.A. criteria. Hemoglobin (Bld) [Mass/Vol] 10.7 g/dL 12.0-15.0 [facility] Monocytes/100 WBC (Bld) 8.7 % 0-10 [facility] Neutrophils (Bld) [#/Vol] 6.3 10*3/uL 2.0-7.7 [facility] Neutrophils/100 WBC (Bld) 63.9 % 47-70 [facility] Potassium [Moles/Vol] 4.4 mmol/L 3.5-5.1 [facility] Sodium [Moles/Vol] 135 mmol/L 136-145 [facility] WBC (Bld) [#/Vol] 9.8 10*3/uL 4.4-11.0 [facility] Determination of erythrocyte mean corpuscular volume (MCV)Ordered By: Sunny Bell on 12-30-2023 MCV (RBC) [Entitic vol] 84.9 fL 81-99 [facility] Erythrocyte distribution wid th ratioOrdered By: Sunny Bell on 12-30-2023 Erythrocyte distribution width (RBC) [Ratio] 15.5 % 11.6-14.6 [facility] Erythrocyte distribution wid th standard deviationOrdered By: Sunny Bell on 12-30-2023 Erythrocyte distribution width (RBC) [Entitic vol] 47.9 fL 35.1-43.9 [facility] Hematocrit Auto (Bld) [Volum e fraction]Ordered By: Sunny Bell on 12-30-2023 Hematocrit (Bld) [Volume fraction] 33.8 % 37-47 [facility] Immature granulocytes/100 WB C Auto (Bld)Ordered By: Sunny Bell on 12-30-2023 Immature granulocytes/100 WBC (Bld) 0.400 % 0.0-0.9 [facility] Comment on above: IG% - Immature Granu locytes (promyelocytes, myelocytes and metamyelocytes) > 1% indicates that a LEFT SHIFT is Present. Laboratory - Chemistry and C hemistry - challengeOrdered By: Sunny Blel on 12-30-2023 CO2 [Moles/Vol] 27.0 mmol/L 21.0-32.0 [facility] Urea nitrogen/Creatinine [Mass ratio] 21.3 mg/mg 10-20 [facility] Laboratory - Hematology and Cell countsOrdered By: Sunny Bell on 12-30-2023 MCH (RBC) [Entitic mass] 26.9 pg 27.0-32.0 [facility] MCHC (RBC) [Mass/Vol] 31.7 g/dL 32-36 [facility] Nucleated RBC/100 WBC (Bld) [Ratio] 0 % 0-5 [facility] Platelet mean volume (Bld) [Entitic vol] 11.3 fL 6.2-12.0 [facility] Platelets (Bld) [#/Vol] 191 10*3/uL 150-450 [facility] No Panel InformationOrdered By: Sunny Bell on 12-30-2023 Estimated Creatinine Clearance Calc 40.01 ml/min [facility] Estimated GFR (MDRD) Amer 63 mL/min >60 [facility] Comment on above: GFR Calc Estimated GFR (MDRD) Non-Af Amer 52 mL/min >60 [facility] Comment on above: Non- GFR Calc RBC Auto (Bld) [#/Vol]Ordere d By: Sunny Bell on 12-30-2023 RBC (Bld) [#/Vol] 3.98 10*6/uL 4.2-5.4 [facility] Serum or plasma calcium melanie urement (mass/volume)Ordered By: Sunny Bell on 12-30-2023 Calcium [Mass/Vol] 11.3 mg/dL 8.5-10.1 [facility] Serum or plasma creatinine m easurement (mass/volume)Ordered By: Sunny Bell on 12-30-2023 Creatinine [Mass/Vol] 1.08 mg/dL 0.55-1.02 [facility] Comment on above: The validity of the calculated GFR & GFRAA in patients over 70 years has not been determined. Clinical correlation is essential. Serum or plasma urea nitroge n measurement (mass/volume)Ordered By: Sunny Bell on 12-30-2023 Urea nitrogen [Mass/Vol] 23 mg/dL 7-18 [facility] Thin prep Papanicolaou smear with manual screeningOrdered By: Sunny Bell on 12-30-2023 Thin prep Papanicolaou smear with manual screening 78 mg/dL 74-106 [facility] Comment on above: MANAGEMENT OF PATIEN T CARE PER NURSING PROTOCOL Thin prep Papanicolaou smear with manual screening 4 5-15 [facility] Basophil percentageOrdered B y: Sunny Bell on 12-28-2023 Basophil percentage 3.0 mg/dL 2.5-4.9 [facility] No Panel InformationOrdered By: Nestor Bartlett on 12-28-2023 Parathyroid Hormone (Intact) 177.6 pg/mL 18.4-80.1 [facility] Absolute lymphocyte countOrd ered By: Queta Cortez on 12-27-2023 Lymphocytes Auto (Unsp spec) [#/Vol] 3.04 10*3/uL 0.83-4.51 [facility] Activated partial thrombopla stin time (aPTT) in platelet poor plasma by coagulation aOrdered By: Queta Cortez on 12-27-2023 aPTT Coag (PPP) [Time] 27.3 s 24.1-36.2 [facility] Automated lymphocyte count a s percentage of total leukocytesOrdered By: Queta Cortez on 12-27-2023 Lymphocytes/100 WBC Auto (Unsp spec) 37.1 % 19-41 [facility] Basophil percentageOrdered B y: Queta Cortez on 12-27-2023 Basophils/100 WBC (Bld) 0.5 % 0-1 [facility] Chloride [Moles/Vol] 103 mmol/L 98-107 [facility] Eosinophils/100 WBC (Bld) 3.1 % 0-5 [facility] Glucose [Mass/Vol] 254 mg/dL 74-106 [facility] Comment on above: Glucose result great er than or equal to 200 mg/dLsuggests DIABETES MELLITUS per A.D.A. criteria. Hemoglobin (Bld) [Mass/Vol] 12.4 g/dL 12.0-15.0 [facility] Monocytes/100 WBC (Bld) 6.6 % 0-10 [facility] Neutrophils (Bld) [#/Vol] 4.2 10*3/uL 2.0-7.7 [facility] Neutrophils/100 WBC (Bld) 51.7 % 47-70 [facility] Potassium [Moles/Vol] 4.2 mmol/L 3.5-5.1 [facility] Sodium [Moles/Vol] 136 mmol/L 136-145 [facility] WBC (Bld) [#/Vol] 8.2 10*3/uL 4.4-11.0 [facility] Determination of erythrocyte mean corpuscular volume (MCV)Ordered By: Queta Cortez on 12-27-2023 MCV (RBC) [Entitic vol] 85.2 fL 81-99 [facility] Erythrocyte distribution wid th ratioOrdered By: Queta Cortez on 12-27-2023 Erythrocyte distribution width (RBC) [Ratio] 15.5 % 11.6-14.6 [facility] Erythrocyte distribution wid th standard deviationOrdered By: Queta Cortez on 12-27-2023 Erythrocyte distribution width (RBC) [Entitic vol] 47.0 fL 35.1-43.9 [facility] Hematocrit Auto (Bld) [Volum e fraction]Ordered By: Queta Cortez on 12-27-2023 Hematocrit (Bld) [Volume fraction] 39.8 % 37-47 [facility] Immature granulocytes/100 WB C Auto (Bld)Ordered By: Queta Cortez on 12-27-2023 Immature granulocytes/100 WBC (Bld) 1.000 % 0.0-0.9 [facility] Comment on above: IG% - Immature Granu locytes (promyelocytes, myelocytes and metamyelocytes) > 1% indicates that a LEFT SHIFT is Present. Laboratory - Chemistry and C hemistry - challengeOrdered By: Queta Cortez on 12-27-2023 CO2 [Moles/Vol] 29.0 mmol/L 21.0-32.0 [facility] Urea nitrogen/Creatinine [Mass ratio] 18.5 mg/mg 10-20 [facility] Laboratory - CoagulationOrde red By: Queta Cortez on 12-27-2023 INR Coag (Bld) [Relative time] 1.1 {INR} [facility] PT Coag (PPP) [Time] 13.7 s 11.7-14.9 [facility] Laboratory - Hematology and Cell countsOrdered By: Queta Cortez on 12-27-2023 MCH (RBC) [Entitic mass] 26.6 pg 27.0-32.0 [facility] MCHC (RBC) [Mass/Vol] 31.2 g/dL 32-36 [facility] Nucleated RBC/100 WBC (Bld) [Ratio] 0 % 0-5 [facility] Platelet mean volume (Bld) [Entitic vol] 11.5 fL 6.2-12.0 [facility] Platelets (Bld) [#/Vol] 237 10*3/uL 150-450 [facility] No Panel InformationOrdered By: Queta Cortez on 12-27-2023 Estimated Creatinine Clearance Calc 37.33 ml/min [facility] Estimated GFR (MDRD) Amer 56 mL/min >60 [facility] Comment on above: GFR Calc Estimated GFR (MDRD) Non-Af Amer 46 mL/min >60 [facility] Comment on above: Non- GFR Calc RBC Auto (Bld) [#/Vol]Ordere d By: Queta Cortez on 12-27-2023 RBC (Bld) [#/Vol] 4.67 10*6/uL 4.2-5.4 [facility] Serum or plasma calcium melanie urement (mass/volume)Ordered By: Queta Cortez on 12-27-2023 Calcium [Mass/Vol] 11.2 mg/dL 8.5-10.[address] [facility] Serum or plasma creatinine m easurement (mass/volume)Ordered By: Queta Cortez on 12-27-2023 Creatinine [Mass/Vol] 1.19 mg/dL 0.55-1.02 [facility] Comment on above: The validity of the calculated GFR & GFRAA in patients over 70 years has not been determined. Clinical correlation is essential. Serum or plasma urea nitroge n measurement (mass/volume)Ordered By: Queta Cortez on 12-27-2023 Urea nitrogen [Mass/Vol] 22 mg/dL 7-18 [facility] Thin prep Papanicolaou smear with manual screeningOrdered By: Queta Cortez on 12-27-2023 Thin prep Papanicolaou smear with manual screening 4 5-15 [facility] Whole blood hemoglobin A1c/t otal hemoglobin ratio (mass fraction)Ordered By: Nestor Bartlett on 12-27-2023 HbA1c (Bld) [Mass fraction] 9.4 % 3.8-5.6 [facility] Comment on above: Normal < 5.7 % Predi abetic 5.7 - 6.4 % Diabetic >or= 6.5 % Please note range changes. Absolute lymphocyte countOrd ered By: Ramone Smiley on 10-26-2023 Lymphocytes Auto (Unsp spec) [#/Vol] 2.86 10*3/uL 0.83-4.51 [facility] Automated lymphocyte count a s percentage of total leukocytesOrdered By: Ramone Smiley on 10-26-2023 Lymphocytes/100 WBC Auto (Unsp spec) 31.9 % 19-41 [facility] Basophil percentageOrdered B y: Ramone Smiley on 10-26-2023 Basophils/100 WBC (Bld) 0.6 % 0-1 [facility] Bilirubin [Mass/Vol] 0.30 mg/dL 0.20-1.00 [facility] Comment on above: For patients on eltr ombopag therapy, use of Dimension [place] TBIL is not recommended. Chloride [Moles/Vol] 101 mmol/L 98-107 [facility] Eosinophils/100 WBC (Bld) 2.6 % 0-5 [facility] Glucose [Mass/Vol] 135 mg/dL 74-106 [facility] Comment on above: Fasting Glucose resu lt greater than or equal to 126 mg/dL suggests DIABETES MELLITUS per A.D.A. criteria. Hemoglobin (Bld) [Mass/Vol] 10.9 g/dL 12.0-15.0 [facility] Monocytes/100 WBC (Bld) 8.0 % 0-10 [facility] Neutrophils (Bld) [#/Vol] 5.1 10*3/uL 2.0-7.7 [facility] Neutrophils/100 WBC (Bld) 56.6 % 47-70 [facility] Potassium [Moles/Vol] 4.5 mmol/L 3.5-5.1 [facility] Protein [Mass/Vol] 8.6 g/dL 6.4-8.2 [facility] Sodium [Moles/Vol] 134 mmol/L 136-145 [facility] WBC (Bld) [#/Vol] 9.0 10*3/uL 4.4-11.0 [facility] Determination of erythrocyte mean corpuscular volume (MCV)Ordered By: Ramone Smiley on 10-26-2023 MCV (RBC) [Entitic vol] 85.8 fL 81-99 [facility] Erythrocyte distribution wid th ratioOrdered By: Ramone Smiley on 10-26-2023 Erythrocyte distribution width (RBC) [Ratio] 17.5 % 11.6-14.6 [facility] Erythrocyte distribution wid th standard deviationOrdered By: Ramone Smiley on 10-26-2023 Erythrocyte distribution width (RBC) [Entitic vol] 55.2 fL 35.1-43.9 [facility] Hematocrit Auto (Bld) [Volum e fraction]Ordered By: Ramone Smiley on 10-26-2023 Hematocrit (Bld) [Volume fraction] 36.2 % 37-47 [facility] Immature granulocytes/100 WB C Auto (Bld)Ordered By: Ramone Smiley on 10-26-2023 Immature granulocytes/100 WBC (Bld) 0.300 % 0.0-0.9 [facility] Comment on above: IG% - Immature Granu locytes (promyelocytes, myelocytes and metamyelocytes) > 1% indicates that a LEFT SHIFT is Present. Laboratory - Chemistry and C hemistry - challengeOrdered By: Ramone Smiley on 10-26-2023 Albumin/Globulin [Mass ratio] 0.6 {ratio} 0.9-2.4 [facility] ALP [Catalytic activity/Vol] 109 U/L 45-117 [facility] ALT [Catalytic activity/Vol] 17 U/L 13-56 [facility] CO2 [Moles/Vol] 27.0 mmol/L 21.0-32.0 [facility] Cobalamin (Vitamin B12) [Mass/Vol] 654 pg/mL 211-911 [facility] Ferritin [Mass/Vol] 99 ng/mL 8-[facility] Globulin (S) [Mass/Vol] 5.4 g/dL 2.2-4.2 [facility] Urea nitrogen/Creatinine [Mass ratio] 17.6 mg/mg 10-20 [facility] Laboratory - Hematology and Cell countsOrdered By: Ramone Smiley on 10-26-2023 MCH (RBC) [Entitic mass] 25.8 pg 27.0-32.0 [facility] MCHC (RBC) [Mass/Vol] 30.1 g/dL 32-36 [facility] Nucleated RBC/100 WBC (Bld) [Ratio] 0 % 0-5 [facility] Platelet mean volume (Bld) [Entitic vol] 11.6 fL 6.2-12.0 [facility] Platelets (Bld) [#/Vol] 268 10*3/uL 150-450 [facility] No Panel InformationOrdered By: Ramone Smiley on 10-26-2023 Estimated GFR (MDRD) Amer 67 mL/min >60 [facility] Comment on above: GFR Calc Estimated GFR (MDRD) Non-Af Amer 55 mL/min >60 [facility] Comment on above: Non- GFR Calc Folate 23.70 ng/mL 3.1-55.4 [facility] Vitamin D 25-Hydroxy 34.5 ng/mL [facility] Comment on above: Vitamin D 25(OH) Sta tus Range Deficiency <20 ng/mL (50nmol/L) Insufficiency 20 - 30 ng/mL (50 - 75 nmol/L) Sufficiency 30 - 100 ng/mL (75 - 250 nmol/L) Toxicity >100 ng/mL (>250 nmol/L) RBC Auto (Bld) [#/Vol]Ordere d By: Ramone Smiley on 10-26-2023 RBC (Bld) [#/Vol] 4.22 10*6/uL 4.2-5.4 [facility] Serum or plasma calcium melanie urement (mass/volume)Ordered By: Ramone Smiley on 10-26-2023 Calcium [Mass/Vol] 11.2 mg/dL 8.5-10.1 [facility] Serum or plasma creatinine m easurement (mass/volume)Ordered By: Ramone Smiley on 10-26-2023 Creatinine [Mass/Vol] 1.02 mg/dL 0.55-1.02 [facility] Comment on above: The validity of the calculated GFR & GFRAA in patients over 70 years has not been determined. Clinical correlation is essential. Serum or plasma thyroid stim ulating hormone (TSH) measurement (units/volume)Ordered By: Ramone Smiley on 10-26-2023 TSH Qn 0.66 uIU/mL 0.358-3.74 [facility] Serum or plasma urea nitroge n measurement (mass/volume)Ordered By: Ramone Smiley on 10-26-2023 Urea nitrogen [Mass/Vol] 18 mg/dL 7-18 [facility] Thin prep Papanicolaou smear with manual screeningOrdered By: Ramone Smiley on 10-26-2023 Thin prep Papanicolaou smear with manual screening 3.2 g/dL 3.2-5.0 [facility] Thin prep Papanicolaou smear with manual screening 18 U/L 15-37 [facility] Thin prep Papanicolaou smear with manual screening 6 5-15 [facility] Whole blood hemoglobin A1c/t otal hemoglobin ratio (mass fraction)Ordered By: Ramone Smiley on 10-26-2023 HbA1c (Bld) [Mass fraction] 8.2 % 3.8-5.6 [facility] Comment on above: Normal < 5.7 % Predi abetic 5.7 - 6.4 % Diabetic >or= 6.5 % Please note range changes. Basophil percentageOrdered B y: Nestor Dhruv on 08-17-2023 Chloride [Moles/Vol] 105 mmol/L 98-107 [facility] Glucose [Mass/Vol] 167 mg/dL 74-106 [facility] Comment on above: Fasting Glucose resu lt greater than or equal to 126 mg/dL suggests DIABETES MELLITUS per A.D.A. criteria. Potassium [Moles/Vol] 4.9 mmol/L 3.5-5.1 [facility] Sodium [Moles/Vol] 139 mmol/L 136-145 [facility] WBC (Bld) [#/Vol] 8.4 10*3/uL 4.4-11.0 [facility] Blood erythrocytes count (nu mber/volume)Ordered By: Nestor Bartlett on 08-17-2023 RBC (Bld) [#/Vol] 3.41 10*6/uL 4.2-5.4 [facility] Blood hemoglobin measurement (mass/volume)Ordered By: Nestor Bartlett on 08-17-2023 Hemoglobin (Bld) [Mass/Vol] 8.9 g/dL 12.0-15.0 [facility] Blood platelet mean volumeOr dered By: Nestor Bartlett on 08-17-2023 Platelet mean volume (Bld) [Entitic vol] 10.4 fL 6.2-12.0 [facility] Determination of erythrocyte mean corpuscular volume (MCV)Ordered By: Nestor Bartlett on 08-17-2023 MCV (RBC) [Entitic vol] 84.5 fL 81-99 [facility] Glucose Glucometer (dC) [M ass/Vol]Ordered By: Sandeep Denson on 08-17-2023 Glucose [Mass/Vol] 267 mg/dL 74-106 [facility] Comment on above: MANAGEMENT OF PATIEN T CARE PER NURSING PROTOCOL Hematocrit Auto (Bld) [Volum e fraction]Ordered By: Nestor Bartlett on 08-17-2023 Hematocrit (Bld) [Volume fraction] 28.8 % 37-47 [facility] Laboratory - Chemistry and C hemistry - challengeOrdered By: Nestor Bartlett on 08-17-2023 CO2 [Moles/Vol] 30.0 mmol/L 21.0-32.0 [facility] Urea nitrogen/Creatinine [Mass ratio] 19.9 mg/mg 10-20 [facility] Laboratory - Hematology and Cell countsOrdered By: Nestor Bartlett on 08-17-2023 Erythrocyte distribution width (RBC) [Entitic vol] 55.6 fL 35.1-43.9 [facility] Erythrocyte distribution width (RBC) [Ratio] 17.9 % 11.6-14.6 [facility] MCH (RBC) [Entitic mass] 26.1 pg 27.0-32.0 [facility] MCHC Auto (RBC) [Mass/Vol]Or dered By: Nestor Bartlett on 08-17-2023 MCHC (RBC) [Mass/Vol] 30.9 g/dL 32-36 [facility] No Panel InformationOrdered By: Nestor Bartlett on 08-17-2023 Estimated Creatinine Clearance Calc 41.47 ml/min [facility] Estimated GFR (MDRD) Amer 77 mL/min >60 [facility] Comment on above: GFR Calc Estimated GFR (MDRD) Non-Af Amer 64 mL/min >60 [facility] Comment on above: Non- GFR Calc Platelets bldOrdered By: Neida Bartlett on 08-17-2023 Platelets (Bld) [#/Vol] 480 10*3/uL 150-450 [facility] Serum or plasma calcium melanie urement (mass/volume)Ordered By: Nestor Bartlett on 08-17-2023 Calcium [Mass/Vol] 10.6 mg/dL 8.5-10.1 [facility] Serum or plasma creatinine m easurement (mass/volume)Ordered By: Nestor Bartlett on 08-17-2023 Creatinine [Mass/Vol] 0.91 mg/dL 0.55-1.02 [facility] Comment on above: The validity of the calculated GFR & GFRAA in patients over 70 years has not been determined. Clinical correlation is essential. Serum or plasma urea nitroge n measurement (mass/volume)Ordered By: Nestor Bartlett on 08-17-2023 Urea nitrogen [Mass/Vol] 18 mg/dL - [facility] Thin prep Papanicolaou smear with manual screeningOrdered By: Nestor Bartlett on 08-17-2023 Thin prep Papanicolaou smear with manual screening 4 01-12 [facility] Absolute lymphocyte countOrd ered By: Heydi Amaya on 08-14-2023 Lymphocytes Auto (Unsp spec) [#/Vol] 1.25 10*3/uL 0.83-4.51 [facility] Basophil percentageOrdered B y: Heydi Amaya on 08-14-2023 Basophil percentage 1.7 mg/dL 2.5-4.9 [facility] Basophils/100 WBC (Bld) 0.3 % 0-1 [facility] Eosinophils/100 WBC (Bld) 0.6 % 0-5 [facility] Neutrophils (Bld) [#/Vol] 9.0 10*3/uL 2.0-7.7 [facility] Neutrophils/100 WBC (Bld) 79.7 % 47-70 [facility] Blood lymphocytes/100 leukoc ytesOrdered By: Heydi Amaya on 08-14-2023 Lymphocytes/100 WBC (Bld) 11.1 % 19-41 [facility] Blood monocytes/100 leukocyt esOrdered By: Heydi Amaya on 08-14-2023 Monocytes/100 WBC (Bld) 6.1 % 0-10 [facility] Iron measurement (mass/mass) Ordered By: Nestor Bartlett on 08-14-2023 Iron (Unsp spec) [Mass/Mass] 14 ug/dL 50-170 [facility] Laboratory - Chemistry and C hemistry - challengeOrdered By: Nestor Bartlett on 08-14-2023 Cobalamin (Vitamin B12) [Mass/Vol] 250 pg/mL 211-911 [facility] Laboratory - Chemistry and C hemistry - challengeOrdered By: Heydi Amaya on 08-14-2023 Free T4 [Mass/Vol] 1.51 ng/dL 0.76-1.46 [facility] Magnesium [Mass/Vol] 2.1 mg/dL 1.6-2.6 [facility] Laboratory - Hematology and Cell countsOrdered By: Heydi Amaya on 08-14-2023 Immature granulocytes/100 WBC (Bld) 2.200 % 0.0-0.9 [facility] Comment on above: IG% - Immature Granu locytes (promyelocytes, myelocytes and metamyelocytes) > 1% indicates that a LEFT SHIFT is Present. Nucleated RBC/100 WBC (Bld) [Ratio] 0 % 0-5 [facility] [facility] No Panel InformationOrdered By: Heydi Amaya on 08-14-2023 Free Triiodothyronine (T3) pg/dL 1.9 pg/mL 2.18-3.98 [facility] Parathyroid Hormone (Intact) 153.7 pg/mL 18.4-80.1 [facility] Thyroid Stimulating Hormone (TSH) 0.01 uIU/mL 0.358-3.74 [facility] Vitamin D 25-Hydroxy 39.9 ng/mL [facility] Comment on above: Vitamin D 25(OH) Sta tus Range Deficiency <20 ng/mL (50nmol/L) Insufficiency 20 - 30 ng/mL (50 - 75 nmol/L) Sufficiency 30 - 100 ng/mL (75 - 250 nmol/L) Toxicity >100 ng/mL (>250 nmol/L) No Panel InformationOrdered By: Nestor Bartlett on 08-14-2023 Total Iron Binding Capacity 197 ug/dL 250-450 [facility] Serum or plasma ferritin rubina surement (mass/volume)Ordered By: Nestor Bartlett on 08-14-2023 Ferritin [Mass/Vol] 1578 ng/mL 8-252 [facility] Serum or plasma folate measu rement (mass/volume)Ordered By: Nestor Bartlett on 08-14-2023 Folate [Mass/Vol] 2.90 ng/mL 3.1-55.4 [facility] Serum or plasma iron saturat ion measurement (mass fraction)Ordered By: Nestor Bartlett on 08-14-2023 Iron saturation [Mass fraction] 7.1 % 15.0-55.0 [facility] Thin prep Papanicolaou smear with manual screeningOrdered By: Heydi Amaya on 08-14-2023 Thin prep Papanicolaou smear with manual screening 285 mOsm/KG 280-301 [facility] Absolute lymphocyte countOrd ered By: Robert Allison on 08-13-2023 Lymphocytes Auto (Unsp spec) [#/Vol] 1.37 10*3/uL 0.83-4.51 [facility] Basophil percentageOrdered B y: Robert Allison on 08-13-2023 Basophil percentage 10-25 SEEN /hpf 0-5 [facility] Lactate [Moles/Vol] 1.2 mmol/L 0.4-2.0 [facility] Basophils/100 WBC (Bld) 0.3 % 0-1 [facility] Bilirubin [Mass/Vol] 0.60 mg/dL 0.20-1.00 [facility] Comment on above: For patients on eltr ombopag therapy, use of Dimension [place] TBIL is not recommended. Chloride [Moles/Vol] 92 mmol/L 98-107 [facility] Eosinophils/100 WBC (Bld) 0.1 % 0-5 [facility] Glucose [Mass/Vol] 212 mg/dL 74-106 [facility] Comment on above: Glucose result great er than or equal to 200 mg/dLsuggests DIABETES MELLITUS per A.D.A. criteria. Neutrophils (Bld) [#/Vol] 12.1 10*3/uL 2.0-7.7 [facility] Neutrophils/100 WBC (Bld) 82.7 % 47-70 [facility] Potassium [Moles/Vol] 3.8 mmol/L 3.5-5.1 [facility] Comment on above: Moderate Hemolysis, Result may be falsely increased. Protein [Mass/Vol] 7.8 g/dL 6.4-8.2 [facility] Sodium [Moles/Vol] 127 mmol/L 136-145 [facility] WBC (Bld) [#/Vol] 14.7 10*3/uL 4.4-11.0 [facility] Bilirubin Test strip Ql (U)O rdered By: Robert Allison on 08-13-2023 Bilirubin Ql (U) Negative Negative [facility] Blood erythrocytes count (nu mber/volume)Ordered By: Robert Allison on 08-13-2023 RBC (Bld) [#/Vol] 3.83 10*6/uL 4.2-5.4 [facility] Blood hemoglobin measurement (mass/volume)Ordered By: Robert Allison on 08-13-2023 Hemoglobin (Bld) [Mass/Vol] 10.0 g/dL 12.0-15.0 [facility] Blood lymphocytes/100 leukoc ytesOrdered By: Robert Allison on 08-13-2023 Lymphocytes/100 WBC (Bld) 9.4 % 19-41 [facility] Blood monocytes/100 leukocyt esOrdered By: Robert Allison on 08-13-2023 Monocytes/100 WBC (Bld) 6.1 % 0-10 [facility] Blood platelet mean volumeOr dered By: Robert Allison on 08-13-2023 Platelet mean volume (Bld) [Entitic vol] 10.8 fL 6.2-12.0 [facility] Culture, urineOrdered By: Ester Allison on 08-13-2023 Bacteria identified Cx Nom (U) Klebsiella pneumoniae sp pneum [facility] Determination of erythrocyte mean corpuscular volume (MCV)Ordered By: Robert Allison on 08-13-2023 MCV (RBC) [Entitic vol] 85.1 fL 81-99 [facility] Hematocrit Auto (Bld) [Volum e fraction]Ordered By: Robert Allison on 08-13-2023 Hematocrit (Bld) [Volume fraction] 32.6 % 37-47 [facility] Influenza virus A and B and SARS-CoV-2 (COVID-19) Ag panel - Upper respiratory specimOrdered By: Robert Allison on 08-13-2023 SARS-CoV-2 (COVID-19) RNA BEBETO+probe Ql (Resp) [facility] Ketones Test strip Ql (U)Ord ered By: Robert Allison on 08-13-2023 Ketones Ql (U) 50 mg/dl Negative [facility] Laboratory - Chemistry and C hemistry - challengeOrdered By: Heydi Amaya on 08-13-2023 Sodium (U) [Moles/Vol] 24 mmol/L Not Establ. [facility] Laboratory - Chemistry and C hemistry - challengeOrdered By: Robert Allison on 08-13-2023 ALP [Catalytic activity/Vol] 105 U/L 45-117 [facility] ALT [Catalytic activity/Vol] 29 U/L 13-56 [facility] CO2 [Moles/Vol] 23.0 mmol/L 21.0-32.0 [facility] Globulin (S) [Mass/Vol] 5.6 g/dL 2.2-4.2 [facility] Urea nitrogen/Creatinine [Mass ratio] 26.3 mg/mg 10-20 [facility] Laboratory - Hematology and Cell countsOrdered By: Robert Allison on 08-13-2023 Erythrocyte distribution width (RBC) [Entitic vol] 53.7 fL 35.1-43.9 [facility] Erythrocyte distribution width (RBC) [Ratio] 17.2 % 11.6-14.6 [facility] Immature granulocytes/100 WBC (Bld) 1.400 % 0.0-0.9 [facility] Comment on above: IG% - Immature Granu locytes (promyelocytes, myelocytes and metamyelocytes) > 1% indicates that a LEFT SHIFT is Present. 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 [facility] Urine Urea Nitrogen 334 mg/dL NO RANGE EST. [facility] No Panel InformationOrdered By: Robert Allison on 08-13-2023 Estimated Creatinine Clearance Calc 31.98 ml/min [facility] Estimated GFR (MDRD) Amer 57 mL/min >60 [facility] Comment on above: GFR Calc Estimated GFR (MDRD) Non-Af Amer 47 mL/min >60 [facility] Comment on above: Non- GFR Calc Troponin I High Sensitivity 39 pg/mL 3.0-54.0 [facility] Comment on above: Please Note: New Rosi t Units and Gender Specific Reference Ranges. For more information see Policy Stat Procedure [place] High Sensitivity Troponin (TNIH) and attachments. Platelets bldOrdered By: Harriet Allison on 08-13-2023 Platelets (Bld) [#/Vol] 412 10*3/uL 150-450 [facility] Protein Test strip Ql (U)Ord ered By: Robert Allison on 08-13-2023 Protein Ql (U) 30 mg/dl Negative [facility] Serum or plasma albumin melanie urement (mass/volume)Ordered By: Robert Allison on 08-13-2023 Albumin [Mass/Vol] 2.2 g/dL 3.2-5.0 [facility] Serum or plasma albumin/glob ulin mass ratioOrdered By: Robert Allison on 08-13-2023 Albumin/Globulin [Mass ratio] 0.4 {ratio} 0.9-2.4 [facility] Serum or plasma calcium melanie urement (mass/volume)Ordered By: Robert Allison on 08-13-2023 Calcium [Mass/Vol] 10.5 mg/dL 8.5-10.1 [facility] Serum or plasma creatinine m easurement (mass/volume)Ordered By: Robert Allison on 08-13-2023 Creatinine [Mass/Vol] 1.18 mg/dL 0.55-1.02 [facility] Comment on above: The validity of the calculated GFR & GFRAA in patients over 70 years has not been determined. Clinical correlation is essential. Serum or plasma urea nitroge n measurement (mass/volume)Ordered By: Robert Allison on 08-13-2023 Urea nitrogen [Mass/Vol] 31 mg/dL 7-18 [facility] Squamous epithelial cells de tection in urine sediment by light microscopyOrdered By: Robert Allison on 08-13-2023 Epithelial cells.squamous LM Ql (Urine sed) 0 SEEN /hpf 5-10 [facility] Thin prep Papanicolaou smear with manual screeningOrdered By: Heydi Amaya on 08-13-2023 Thin prep Papanicolaou smear with manual screening 20 mmol/L Not Establ. [facility] Thin prep Papanicolaou smear with manual screeningOrdered By: Robert Allison on 08-13-2023 Thin prep Papanicolaou smear with manual screening 36 U/L 15- [facility] Comment on above: Moderate Hemolysis, Result may be falsely increased. Thin prep Papanicolaou smear with manual screening 01-12 [facility] Upper respiratory specimen i nfluenza A virus, influenza B virus, and severe acute resOrdered By: Robert Allison on 08-13-2023 Upper respiratory specimen influenza A virus, influenza B virus, and severe acute res [facility] Urine blood detectionOrdered By: Robert Allison on 08-13-2023 RBC Ql (U) 50 /ul Negative [facility] RBC Ql (U) 0-5 SEEN /hpf 0-5 [facility] Urine clarityOrdered By: Harriet Allison on 08-13-2023 Clarity (U) Sl. Cloudy Clear [facility] Urine color determinationOrd ered By: Robert Allison on 08-13-2023 Color (U) Yellow Yellow [facility] Urine creatinine measurement (mass/volume)Ordered By: Heydi Amaya on 08-13-2023 Creatinine (U) [Mass/Vol] 37.60 mg/dL NO RANGE EST. [facility] Urine glucose detectionOrder ed By: Robert Allison on 08-13-2023 Glucose Ql (U) 1000 mg/dl Normal [facility] Urine leukocyte esterase det ection by dipstickOrdered By: Robert Allison on 08-13-2023 Leukocyte esterase Test strip Ql (U) 500 /ul Negative [facility] Urine osmolality measurement Ordered By: Heydi Amaya on 08-13-2023 Osmolality (U) [Osmolality] 269 mOsm/KG >50 [facility] Comment on above: Normal Urine Referen ce Ranges Random: 50 - 1200 mOsm/kg H20 depending on fluid intake Random: >850 mOsm/kg after 12 hour fluid restriction 24 hour: ~300 - 900 mOsm/kg H2O Urine pHOrdered By: Rboert sibley on 08-13-2023 pH (U) 5.0 [pH] 5.0 - 8.0 [facility] Urine sediment bacteria coun t by microscopy (number/high power field)Ordered By: Robert Allison on 08-13-2023 Bacteria LM.HPF (Urine sed) [#/Area] 3 /[HPF] None Seen [facility] Urine specific gravity measu rementOrdered By: Robert Allison on 08-13-2023 Specific gravity (U) [Rel density] 1.015 1.002-1.030 [facility] Urobilinogen Auto test strip Ql (U)Ordered By: Robert Allison on 08-13-2023 Urobilinogen Ql (U) Normal mg/dl Normal [facility] Absolute lymphocyte countOrd ered By: Winston Gill on 07-18-2023 Lymphocytes Auto (Unsp spec) [#/Vol] 0.92 10*3/uL 0.83-4.51 [facility] Basophil percentageOrdered B y: Winston Gill on 07-18-2023 Basophil percentage >100 SEEN /hpf 0-5 [facility] Basophils/100 WBC (Bld) 0.4 % 0-1 [facility] Bilirubin [Mass/Vol] 0.40 mg/dL 0.20-1.00 [facility] Comment on above: For patients on eltr ombopag therapy, use of Dimension [place] TBIL is not recommended. Chloride [Moles/Vol] 95 mmol/L 98-107 [facility] Eosinophils/100 WBC (Bld) 0.7 % 0-5 [facility] Glucose [Mass/Vol] 139 mg/dL 74-106 [facility] Comment on above: Fasting Glucose resu lt greater than or equal to 126 mg/dL suggests DIABETES MELLITUS per A.D.A. criteria. Neutrophils (Bld) [#/Vol] 5.4 10*3/uL 2.0-7.7 [facility] Neutrophils/100 WBC (Bld) 76.5 % 47-70 [facility] Potassium [Moles/Vol] 3.7 mmol/L 3.5-5.1 [facility] Protein [Mass/Vol] 7.4 g/dL 6.4-8.2 [facility] Sodium [Moles/Vol] 131 mmol/L 136-145 [facility] WBC (Bld) [#/Vol] 7.0 10*3/uL 4.4-11.0 [facility] Bilirubin Test strip Ql (U)O rdered By: Winston Gill on 07-18-2023 Bilirubin Ql (U) Negative Negative [facility] Blood erythrocytes count (nu mber/volume)Ordered By: Winston Gill on 07-18-2023 RBC (Bld) [#/Vol] 3.85 10*6/uL 4.2-5.4 [facility] Blood hemoglobin measurement (mass/volume)Ordered By: Winston Gill on 07-18-2023 Hemoglobin (Bld) [Mass/Vol] 10.8 g/dL 12.0-15.0 [facility] Blood lymphocytes/100 leukoc ytesOrdered By: Winston Gill on 07-18-2023 Lymphocytes/100 WBC (Bld) 13.1 % 19-41 [facility] Blood monocytes/100 leukocyt esOrdered By: Winston Gill on 07-18-2023 Monocytes/100 WBC (Bld) 8.0 % 0-10 [facility] Blood platelet mean volumeOr dered By: Winston Gill on 07-18-2023 Platelet mean volume (Bld) [Entitic vol] 10.0 fL 6.2-12.0 [facility] Culture, urineOrdered By: Devyn Rea on 07-18-2023 Bacteria identified Cx Nom (U) Escherichia coli [facility] Bacteria identified Cx Nom (U) Klebsiella pneumoniae sp pneum [facility] Determination of erythrocyte mean corpuscular volume (MCV)Ordered By: Winston Gill on 07-18-2023 MCV (RBC) [Entitic vol] 87.0 fL 81-99 [facility] Hematocrit Auto (Bld) [Volum e fraction]Ordered By: Winston Gill on 07-18-2023 Hematocrit (Bld) [Volume fraction] 33.5 % 37-47 [facility] Ketones Test strip Ql (U)Ord ered By: Winston Gill on 07-18-2023 Ketones Ql (U) 50 mg/dl Negative [facility] Laboratory - Chemistry and C hemistry - challengeOrdered By: Winston Gill on 07-18-2023 ALP [Catalytic activity/Vol] 93 U/L 45-117 [facility] ALT [Catalytic activity/Vol] 13 U/L 13-56 [facility] CO2 [Moles/Vol] 27.0 mmol/L 21.0-32.0 [facility] Globulin (S) [Mass/Vol] 4.8 g/dL 2.2-4.2 [facility] Urea nitrogen/Creatinine [Mass ratio] 15.6 mg/mg 10-20 [facility] Laboratory - Hematology and Cell countsOrdered By: Winston Gill on 07-18-2023 Erythrocyte distribution width (RBC) [Entitic vol] 52.4 fL 35.1-43.9 [facility] Erythrocyte distribution width (RBC) [Ratio] 16.4 % 11.6-14.6 [facility] Immature granulocytes/100 WBC (Bld) 1.300 % 0.0-0.9 [facility] Comment on above: IG% - Immature Granu locytes (promyelocytes, myelocytes and metamyelocytes) > 1% indicates that a LEFT SHIFT is Present. MCH (RBC) [Entitic mass] 28.1 pg 27.0-32.0 [facility] Nucleated RBC/100 WBC (Bld) [Ratio] 0 % 0-5 [facility] MCHC Auto (RBC) [Mass/Vol]Or dered By: Winston Gill on 07-18-2023 MCHC (RBC) [Mass/Vol] 32.2 g/dL 32-36 [facility] Mucus LM Ql (Urine sed)Order ed By: Winston Gill on 07-18-2023 Mucus Ql (Urine sed) 0 SEEN /hpf [facility] Nitrite Test strip Ql (U)Ord ered By: Winston Gill on 07-18-2023 Nitrite Ql (U) Negative Negative [facility] No Panel InformationOrdered By: Winston Gill on 07-18-2023 Estimated Creatinine Clearance Calc 45.46 ml/min [facility] Estimated GFR (MDRD) Amer 85 mL/min >60 [facility] Comment on above: GFR Calc Estimated GFR (MDRD) Non-Af Amer 70 mL/min >60 [facility] Comment on above: Non- GFR Calc Platelets bldOrdered By: Tre Gill on 07-18-2023 Platelets (Bld) [#/Vol] 370 10*3/uL 150-450 [facility] Protein Test strip Ql (U)Ord ered By: Winston Gill on 07-18-2023 Protein Ql (U) 100 mg/dl Negative [facility] Serum or plasma albumin melanie urement (mass/volume)Ordered By: Winston Gill on 07-18-2023 Albumin [Mass/Vol] 2.6 g/dL 3.2-5.0 [facility] Serum or plasma albumin/glob ulin mass ratioOrdered By: Winston Gill on 07-18-2023 Albumin/Globulin [Mass ratio] 0.5 {ratio} 0.9-2.4 [facility] Serum or plasma calcium melanie urement (mass/volume)Ordered By: Winston Gill on 07-18-2023 Calcium [Mass/Vol] 10.3 mg/dL 8.5-10.1 [facility] Serum or plasma creatinine m easurement (mass/volume)Ordered By: Winston Gill on 07-18-2023 Creatinine [Mass/Vol] 0.83 mg/dL 0.55-1.02 [facility] Comment on above: The validity of the calculated GFR & GFRAA in patients over 70 years has not been determined. Clinical correlation is essential. Serum or plasma urea nitroge n measurement (mass/volume)Ordered By: Winston Gill on 07-18-2023 Urea nitrogen [Mass/Vol] 13 mg/dL 7-18 [facility] Squamous epithelial cells de tection in urine sediment by light microscopyOrdered By: Winston Gill on 07-18-2023 Epithelial cells.squamous LM Ql (Urine sed) 5-10 SEEN /hpf 5-10 [facility] Thin prep Papanicolaou smear with manual screeningOrdered By: Winston Gill on 07-18-2023 Thin prep Papanicolaou smear with manual screening 26 U/L 15-37 [facility] Thin prep Papanicolaou smear with manual screening 9 5-15 [facility] Urine blood detectionOrdered By: Winston Gill on 07-18-2023 RBC Ql (U) 50 /ul Negative [facility] RBC Ql (U) 0-5 SEEN /hpf 0-5 [facility] Urine clarityOrdered By: Tre Gill on 07-18-2023 Clarity (U) Cloudy Clear [facility] Urine color determinationOrd ered By: Winston Gill on 07-18-2023 Color (U) Yellow Yellow [facility] Urine glucose detectionOrder ed By: Winston Gill on 07-18-2023 Glucose Ql (U) 1000 mg/dl Normal [facility] Urine leukocyte esterase det ection by dipstickOrdered By: Winston Gill on 07-18-2023 Leukocyte esterase Test strip Ql (U) 500 /ul Negative [facility] Urine pHOrdered By: Winston castillo on 07-18-2023 pH (U) 5.0 [pH] 5.0 - 8.0 [facility] Urine sediment bacteria coun t by microscopy (number/high power field)Ordered By: Winston Gill on 07-18-2023 Bacteria LM.HPF (Urine sed) [#/Area] 3 /[HPF] None Seen [facility] Urine sediment leukocyte lisandro t count by microscopy (number/low power field)Ordered By: Winston Gill on 07-18-2023 WBC casts LM.LPF (Urine sed) [#/Area] 0-5 SEEN /lpf None Seen [facility] Urine specific gravity measu rementOrdered By: Winston Gill on 07-18-2023 Specific gravity (U) [Rel density] 1.020 1.002-1.030 [facility] Urobilinogen Auto test strip Ql (U)Ordered By: Winston Gill on 07-18-2023 Urobilinogen Ql (U) 1 mg/dl Normal [facility] No Panel Informationon 07-15 POC SARS CoV-2 Antigen Negative [facility] Amorphous sediment detection in urine sediment by light microscopyOrdered By: Cheryl Mendez on 06-01-2023 Amorphous sediment LM Ql (Urine sed) 1+ URATE [facility] Basophil percentageOrdered B y: Cheryl Mendez on 06-01-2023 Basophil percentage 5-10 SEEN /hpf 0-5 [facility] Bilirubin Test strip Ql (U)O rdered By: Cheryl Mendez on 06-01-2023 Bilirubin Ql (U) Negative Negative [facility] Ketones Test strip Ql (U)Ord ered By: Cheryl Mendez on 06-01-2023 Ketones Ql (U) Negative Negative [facility] Mucus LM Ql (Urine sed)Order ed By: Cheryl Mendez on 06-01-2023 Mucus Ql (Urine sed) 0 SEEN /hpf [facility] Nitrite Test strip Ql (U)Ord ered By: Cheryl Mendez on 06-01-2023 Nitrite Ql (U) Negative Negative [facility] No Panel InformationOrdered By: Cheryl eMndez on 06-01-2023 Urine Microalbumin/Creatinine Ratio 173.1 mg/g CRE <30 [facility] Protein Test strip Ql (U)Ord ered By: Cheryl Mendez on 06-01-2023 Protein Ql (U) 15 mg/dl Negative [facility] Squamous epithelial cells de tection in urine sediment by light microscopyOrdered By: Cheryl Mendez on 06-01-2023 Epithelial cells.squamous LM Ql (Urine sed) 0-5 SEEN /hpf 5-10 [facility] Thin prep Papanicolaou smear with manual screeningOrdered By: Cheryl Mendez on 06-01-2023 Thin prep Papanicolaou smear with manual screening 98.3 mg/L NO RANGE EST. [facility] Urine blood detectionOrdered By: Cheryl Mendez on 06-01-2023 RBC Ql (U) 25 /ul Negative [facility] RBC Ql (U) 0-5 SEEN /hpf 0-5 [facility] Urine clarityOrdered By: Dyana Mendez on 06-01-2023 Clarity (U) Cloudy Clear [facility] Urine color determinationOrd ered By: Cheryl Mendez on 06-01-2023 Color (U) Yellow Yellow [facility] Urine creatinine measurement (mass/volume)Ordered By: Cheryl Mendez on 06-01-2023 Creatinine (U) [Mass/Vol] 56.80 mg/dL NO RANGE EST. [facility] Urine glucose detectionOrder ed By: Cheryl Mendez on 06-01-2023 Glucose Ql (U) 1000 mg/dl Normal [facility] Urine leukocyte esterase det ection by dipstickOrdered By: Cheryl Mendez on 06-01-2023 Leukocyte esterase Test strip Ql (U) 100 /ul Negative [facility] Urine pHOrdered By: Nikki Mendez on 06-01-2023 pH (U) 5.0 [pH] 5.0 - 8.0 [facility] Urine sediment bacteria coun t by microscopy (number/high power field)Ordered By: Cheryl Mendez on 06-01-2023 Bacteria LM.HPF (Urine sed) [#/Area] 3 /[HPF] None Seen [facility] Urine specific gravity measu rementOrdered By: Cheryl Mendez on 06-01-2023 Specific gravity (U) [Rel density] 1.015 1.002-1.030 [facility] Urobilinogen Auto test strip Ql (U)Ordered By: Cheryl Mendez on 06-01-2023 Urobilinogen Ql (U) Normal mg/dl Normal [facility] Basophil percentageOrdered B y: Cheryl Mendez on 05-27-2023 Basophil percentage 2.7 mg/dL 2.5-4.9 [facility] Chloride [Moles/Vol] 102 mmol/L 98-107 [facility] Glucose [Mass/Vol] 220 mg/dL 74-106 [facility] Comment on above: Glucose result great er than or equal to 200 mg/dLsuggests DIABETES MELLITUS per A.D.A. criteria. Potassium [Moles/Vol] 3.9 mmol/L 3.5-5.1 [facility] Sodium [Moles/Vol] 137 mmol/L 136-145 [facility] Laboratory - Chemistry and C hemistry - challengeOrdered By: Cheryl Mendez on 05-27-2023 CO2 [Moles/Vol] 28.0 mmol/L 21.0-32.0 [facility] Urea nitrogen/Creatinine [Mass ratio] 10.0 mg/mg 10- [facility] No Panel InformationOrdered By: Cheryl Mendez on 05-27-2023 Estimated GFR (MDRD) Amer 89 mL/min >60 [facility] Comment on above: GFR Calc Estimated GFR (MDRD) Non-Af Amer 73 mL/min >60 [facility] Comment on above: Non- GFR Calc Parathyroid Hormone (Intact) 164.3 pg/mL 18.4-80.1 [facility] Vitamin D 25-Hydroxy 45.4 ng/mL [facility] Comment on above: Vitamin D 25(OH) Sta tus Range Deficiency <20 ng/mL (50nmol/L) Insufficiency 20 - 30 ng/mL (50 - 75 nmol/L) Sufficiency 30 - 100 ng/mL (75 - 250 nmol/L) Toxicity >100 ng/mL (>250 nmol/L) Serum or plasma albumin melanie urement (mass/volume)Ordered By: Cheryl Mendez on 05-27-2023 Albumin [Mass/Vol] 2.9 g/dL 3.2-5.0 [facility] Serum or plasma calcium melanie urement (mass/volume)Ordered By: Cheryl Mendez on 05-27-2023 Calcium [Mass/Vol] 10.7 mg/dL 8.5-10.1 [facility] Serum or plasma creatinine m easurement (mass/volume)Ordered By: Cheryl Mendez on 05-27-2023 Creatinine [Mass/Vol] 0.80 mg/dL 0.55-1.02 [facility] Comment on above: The validity of the calculated GFR & GFRAA in patients over 70 years has not been determined. Clinical correlation is essential. Serum or plasma urea nitroge n measurement (mass/volume)Ordered By: Cheryl Mendez on 05-27-2023 Urea nitrogen [Mass/Vol] 8 mg/dL 7-18 [facility] Culture, urineOrdered By: Allan Anguiano on 03-24-2023 Bacteria identified Cx Nom (U) Klebsiella pneumoniae sp pneum [facility] Bacteria identified Cx Nom (U) Klebsiella pneumoniae sp pneum [facility] Absolute lymphocyte countOrd ered By: Dr. Smiley on 01-28-2023 Lymphocytes Auto (Unsp spec) [#/Vol] 3.27 10*3/uL 0.83-4.51 [facility] Absolute lymphocyte countOrd ered By: Dr. Lockwood on 01-28-2023 Lymphocytes Auto (Unsp spec) [#/Vol] 2.27 10*3/uL 0.83-4.51 [facility] Basophil percentageOrdered B y: Dr. Smiley on 01-28-2023 Basophils/100 WBC (Bld) 0.5 % 0-1 [facility] Bilirubin [Mass/Vol] 0.30 mg/dL 0.20-1.00 [facility] Comment on above: For patients on eltr ombopag therapy, use of Dimension [place] TBIL is not recommended. Chloride [Moles/Vol] 99 mmol/L 98-107 [facility] Cholesterol [Mass/Vol] 145 mg/dL <200 [facility] Comment on above: <200 mg/dL Desirable 200-240 mg/dL Borderline >240 mg/dL High Risk Eosinophils/100 WBC (Bld) 2.3 % 0-5 [facility] Glucose [Mass/Vol] 182 mg/dL 74-106 [facility] Comment on above: Fasting Glucose resu lt greater than or equal to 126 mg/dL suggests DIABETES MELLITUS per A.D.A. criteria. Neutrophils (Bld) [#/Vol] 3.9 10*3/uL 2.0-7.7 [facility] Neutrophils/100 WBC (Bld) 50.0 % 47-70 [facility] Potassium [Moles/Vol] 3.6 mmol/L 3.5-5.1 [facility] Protein [Mass/Vol] 7.9 g/dL 6.4-8.2 [facility] Sodium [Moles/Vol] 134 mmol/L 136-145 [facility] Triglyceride [Mass/Vol] 119 mg/dL <199 [facility] Comment on above: The drugs N-Acetylcy steine and Metamizole may falsely depress this assay.Serum Triglycerides Reference Interval Normal <150 mg/dL Borderline high 150 - 199 mg/dL High 200 - 499 mg/dL Very High > or = 500 mg/dL WBC (Bld) [#/Vol] 7.7 10*3/uL 4.4-11.0 [facility] Basophil percentageOrdered B y: Dr. Lockwood on 01-28-2023 Basophils/100 WBC (Bld) 0.8 % 0-1 [facility] Chloride [Moles/Vol] 102 mmol/L 98-107 [facility] Eosinophils/100 WBC (Bld) 2.6 % 0-5 [facility] Glucose [Mass/Vol] 137 mg/dL 74-106 [facility] Comment on above: Fasting Glucose resu lt greater than or equal to 126 mg/dL suggests DIABETES MELLITUS per A.D.A. criteria. Neutrophils (Bld) [#/Vol] 3.8 10*3/uL 2.0-7.7 [facility] Neutrophils/100 WBC (Bld) 56.6 % 47-70 [facility] Potassium [Moles/Vol] 3.8 mmol/L 3.5-5.1 [facility] Protein [Mass/Vol] 7.4 g/dL 6.4-8.2 [facility] Sodium [Moles/Vol] 136 mmol/L 136-145 [facility] WBC (Bld) [#/Vol] 6.6 10*3/uL 4.4-11.0 [facility] Blood erythrocytes count (nu mber/volume)Ordered By: Dr. Smiley on 01-28-2023 RBC (Bld) [#/Vol] 4.10 10*6/uL 4.2-5.4 [facility] Blood erythrocytes count (nu mber/volume)Ordered By: Dr. Lockwood on 01-28-2023 RBC (Bld) [#/Vol] 3.83 10*6/uL 4.2-5.4 [facility] Blood hemoglobin measurement (mass/volume)Ordered By: Dr. Smiley on 01-28-2023 Hemoglobin (Bld) [Mass/Vol] 11.5 g/dL 12.0-15.0 [facility] Blood hemoglobin measurement (mass/volume)Ordered By: Dr. Lockwood on 01-28-2023 Hemoglobin (Bld) [Mass/Vol] 11.1 g/dL 12.0-15.0 [facility] Blood lymphocytes/100 leukoc ytesOrdered By: Dr. Smiley on 01-28-2023 Lymphocytes/100 WBC (Bld) 42.3 % 19-41 [facility] Blood lymphocytes/100 leukoc ytesOrdered By: Dr. Lockwood on 01-28-2023 Lymphocytes/100 WBC (Bld) 34.2 % 19-41 [facility] Blood monocytes/100 leukocyt esOrdered By: Dr. Smiley on 01-28-2023 Monocytes/100 WBC (Bld) 4.8 % 0-10 [facility] Blood monocytes/100 leukocyt esOrdered By: Dr. Lockwood on 01-28-2023 Monocytes/100 WBC (Bld) 5.6 % 0-10 [facility] Blood platelet mean volumeOr dered By: Dr. Smiley on 01-28-2023 Platelet mean volume (Bld) [Entitic vol] 9.8 fL 6.2-12.0 [facility] Blood platelet mean volumeOr dered By: Dr. Lockwood on 01-28-2023 Platelet mean volume (Bld) [Entitic vol] 9.3 fL 6.2-12.0 [facility] Determination of erythrocyte mean corpuscular volume (MCV)Ordered By: Dr. Smiley on 01-28-2023 MCV (RBC) [Entitic vol] 90.7 fL 81-99 [facility] Determination of erythrocyte mean corpuscular volume (MCV)Ordered By: Dr. Lockwood on 01-28-2023 MCV (RBC) [Entitic vol] 87.7 fL 81-99 [facility] Hematocrit Auto (Bld) [Volum e fraction]Ordered By: Dr. Smiley on 01-28-2023 Hematocrit (Bld) [Volume fraction] 37.2 % 37-47 [facility] Hematocrit Auto (Bld) [Volum e fraction]Ordered By: Dr. Lockwood on 01-28-2023 Hematocrit (Bld) [Volume fraction] 33.6 % 37-47 [facility] Laboratory - Chemistry and C hemistry - challengeOrdered By: Dr. Smiley on 01-28-2023 ALP [Catalytic activity/Vol] 153 U/L 45-117 [facility] ALT [Catalytic activity/Vol] 20 U/L 13-56 [facility] CO2 [Moles/Vol] 25.0 mmol/L 21.0-32.0 [facility] Globulin (S) [Mass/Vol] 4.9 g/dL 2.2-4.2 [facility] Urea nitrogen/Creatinine [Mass ratio] 10.7 mg/mg 10 [facility] Laboratory - Chemistry and C hemistry - challengeOrdered By: Dr. Lockwood on 01-28-2023 ALP [Catalytic activity/Vol] 140 U/L 45-117 [facility] CO2 [Moles/Vol] 27.0 mmol/L 21.0-32.0 [facility] Free T4 [Mass/Vol] 1.11 ng/dL 0.76-1.46 [facility] Globulin (S) [Mass/Vol] 4.5 g/dL 2.2-4.2 [facility] Urea nitrogen/Creatinine [Mass ratio] 11.5 mg/mg 06-19 [facility] Laboratory - Hematology and Cell countsOrdered By: Dr. Smiley on 01-28-2023 Erythrocyte distribution width (RBC) [Entitic vol] 49.7 fL 35.1-43.9 [facility] Erythrocyte distribution width (RBC) [Ratio] 14.9 % 11.6-14.6 [facility] Immature granulocytes/100 WBC (Bld) 0.100 % 0.0-0.9 [facility] Comment on above: IG% - Immature Granu locytes (promyelocytes, myelocytes and metamyelocytes) > 1% indicates that a LEFT SHIFT is Present. MCH (RBC) [Entitic mass] 28.0 pg 27.0-32.0 [facility] Nucleated RBC/100 WBC (Bld) [Ratio] 0 % 0-5 [facility] Laboratory - Hematology and Cell countsOrdered By: Dr. Lockwood on 01-28-2023 Erythrocyte distribution width (RBC) [Entitic vol] 47.3 fL 35.1-43.9 [facility] Erythrocyte distribution width (RBC) [Ratio] 14.8 % 11.6-14.6 [facility] Immature granulocytes/100 WBC (Bld) 0.200 % 0.0-0.9 [facility] Comment on above: IG% - Immature Granu locytes (promyelocytes, myelocytes and metamyelocytes) > 1% indicates that a LEFT SHIFT is Present. MCH (RBC) [Entitic mass] 29.0 pg 27.0-32.0 [facility] MCHC Auto (RBC) [Mass/Vol]Or dered By: Dr. Smiley on 01-28-2023 MCHC (RBC) [Mass/Vol] 30.9 g/dL 32-36 [facility] MCHC Auto (RBC) [Mass/Vol]Or dered By: Dr. Lockwood on 01-28-2023 MCHC (RBC) [Mass/Vol] 33.0 g/dL 32-36 [facility] Comment on above: Delta: 30.9 on 01/280 No Panel InformationOrdered By: Dr. Lockwood on 01-28-2023 Estimated Creatinine Clearance Calc 37.74 ml/min [facility] Estimated GFR (MDRD) Amer 91 mL/min >60 [facility] Comment on above: GFR Calc Estimated GFR (MDRD) Non-Af Amer 75 mL/min >60 [facility] Comment on above: Non- GFR Calc Free Triiodothyronine (T3) pg/dL 2.9 pg/mL 2.18-3.98 [facility] No Panel InformationOrdered By: Dr. Smiley on 05-31-2023 Estimated GFR (MDRD) Amer 84 mL/min >60 [facility] Comment on above: GFR Calc Estimated GFR (MDRD) Non-Af Amer 70 mL/min >60 [facility] Comment on above: Non- GFR Calc Parathyroid Hormone (Intact) 112.9 pg/mL 18.4-80.1 [facility] Thyroid Stimulating Hormone (TSH) 0.02 uIU/mL 0.358-3.74 [facility] Vitamin D 25-Hydroxy 66.1 ng/mL [facility] Comment on above: Vitamin D 25(OH) Sta tus Range Deficiency <20 ng/mL (50nmol/L) Insufficiency 20 - 30 ng/mL (50 - 75 nmol/L) Sufficiency 30 - 100 ng/mL (75 - 250 nmol/L) Toxicity >100 ng/mL (>250 nmol/L) Platelets bldOrdered By: Dr. Smiley on 01-28-2023 Platelets (Bld) [#/Vol] 349 10*3/uL 150-450 [facility] Platelets bldOrdered By: Dr. Lockwood on 01-28-2023 Platelets (Bld) [#/Vol] 285 10*3/uL 150-450 [facility] Serum or plasma albumin melanie urement (mass/volume)Ordered By: Dr. Smiley on 01-28-2023 Albumin [Mass/Vol] 3.0 g/dL 3.2-5.0 [facility] Serum or plasma albumin melanie urement (mass/volume)Ordered By: Dr. Lockwood on 01-28-2023 Albumin [Mass/Vol] 2.9 g/dL 3.2-5.0 [facility] Serum or plasma albumin/glob ulin mass ratioOrdered By: Dr. Smiley on 01-28-2023 Albumin/Globulin [Mass ratio] 0.6 {ratio} 0.9-2.4 [facility] Serum or plasma calcium melanie urement (mass/volume)Ordered By: Dr. Smiley on 01-28-2023 Calcium [Mass/Vol] 11.5 mg/dL 8.5-10.1 [facility] Serum or plasma calcium melanie urement (mass/volume)Ordered By: Dr. Lockwood on 01-28-2023 Calcium [Mass/Vol] 11.4 mg/dL 8.5-10.1 [facility] Serum or plasma cholesterol in HDL measurement (mass/volume)Ordered By: Dr. Smiley on 01-28-2023 Cholesterol in HDL [Mass/Vol] 46 mg/dL >40 [facility] Comment on above: The drugs N-Acetylcy steine and Metamizole may falsely depress this assay. Reference Range HDL <40 mg/dL Low HDL Cholesterol HDL >or= 60 mg/dL High HDL Cholesterol Serum or plasma cholesterol in VLDL measurement (mass/volume)Ordered By: Dr. Smiley on 01-28-2023 Cholesterol in VLDL [Mass/Vol] 24 mg/dL 5-40 [facility] Serum or plasma creatinine m easurement (mass/volume)Ordered By: Dr. Smiley on 01-28-2023 Creatinine [Mass/Vol] 0.84 mg/dL 0.55-1.02 [facility] Comment on above: The validity of the calculated GFR & GFRAA in patients over 70 years has not been determined. Clinical correlation is essential. Serum or plasma creatinine m easurement (mass/volume)Ordered By: Dr. Lockwood on 01-28-2023 Creatinine [Mass/Vol] 0.78 mg/dL 0.55-1.02 [facility] Comment on above: The validity of the calculated GFR & GFRAA in patients over 70 years has not been determined. Clinical correlation is essential. Serum or plasma low density lipoprotein (LDL) cholesterol measurement (mass/volume)Ordered By: Dr. Smiley on 01-28-2023 Cholesterol in LDL [Mass/Vol] 75 mg/dL 0-130 [facility] Serum or plasma urea nitroge n measurement (mass/volume)Ordered By: Dr. Smiley on 01-28-2023 Urea nitrogen [Mass/Vol] 9 mg/dL 7-18 [facility] Thin prep Papanicolaou smear with manual screeningOrdered By: Dr. Smiley on 01-28-2023 Thin prep Papanicolaou smear with manual screening 22 U/L 15-37 [facility] Thin prep Papanicolaou smear with manual screening 10 5-15 [facility] Thin prep Papanicolaou smear with manual screeningOrdered By: Dr. Lockwood on 01-28-2023 Thin prep Papanicolaou smear with manual screening 18 U/L 15-37 [facility] Thin prep Papanicolaou smear with manual screening 7 5-15 [facility] Whole blood hemoglobin A1c/t otal hemoglobin ratio (mass fraction)Ordered By: Dr. Smiley on 01-28-2023 HbA1c (Bld) [Mass fraction] 7.5 % 3.8-5.6 [facility] Comment on above: Normal < 5.7 % Predi abetic 5.7 - 6.4 % Diabetic >or= 6.5 % Please note range changes. Basophil percentageOrdered B y: Dr. Smiley on 12-09-2022 Bilirubin [Mass/Vol] 0.20 mg/dL 0.20-1.00 [facility] Comment on above: For patients on eltr ombopag therapy, use of Dimension [place] TBIL is not recommended. Chloride [Moles/Vol] 101 mmol/L 98-107 [facility] Glucose [Mass/Vol] 168 mg/dL 74-106 [facility] Comment on above: Fasting Glucose resu lt greater than or equal to 126 mg/dL suggests DIABETES MELLITUS per A.D.A. criteria. Potassium [Moles/Vol] 3.7 mmol/L 3.5-5.1 [facility] Protein [Mass/Vol] 8.7 g/dL 6.4-8.2 [facility] Sodium [Moles/Vol] 133 mmol/L 136-145 [facility] Laboratory - Chemistry and C hemistry - challengeOrdered By: Dr. Smiley on 12-09-2022 ALP [Catalytic activity/Vol] 164 U/L 45-117 [facility] ALT [Catalytic activity/Vol] 27 U/L 13-56 [facility] CO2 [Moles/Vol] 25.0 mmol/L 21.0-32.0 [facility] Globulin (S) [Mass/Vol] 5.4 g/dL 2.2-4.2 [facility] Urea nitrogen/Creatinine [Mass ratio] 10.7 mg/mg 10-20 [facility] No Panel InformationOrdered By: Dr. Smiley on 12-09-2022 Estimated GFR (MDRD) Amer 67 mL/min >60 [facility] Comment on above: GFR Calc Estimated GFR (MDRD) Non-Af Amer 55 mL/min >60 [facility] Comment on above: Non- GFR Calc Parathyroid Hormone (Intact) 175.0 pg/mL 18.4-80.1 [facility] Vitamin D 25-Hydroxy 92.6 ng/mL [facility] Comment on above: Vitamin D 25(OH) Sta tus Range Deficiency <20 ng/mL (50nmol/L) Insufficiency 20 - 30 ng/mL (50 - 75 nmol/L) Sufficiency 30 - 100 ng/mL (75 - 250 nmol/L) Toxicity >100 ng/mL (>250 nmol/L) Serum or plasma albumin melanie urement (mass/volume)Ordered By: Dr. Smiley on 12-09-2022 Albumin [Mass/Vol] 3.3 g/dL 3.2-5.0 [facility] Serum or plasma albumin/glob ulin mass ratioOrdered By: Dr. Smiley on 12-09-2022 Albumin/Globulin [Mass ratio] 0.6 {ratio} 0.9-2.4 [facility] Serum or plasma calcium melanie urement (mass/volume)Ordered By: Dr. Smiley on 12-09-2022 Calcium [Mass/Vol] 11.4 mg/dL 8.5-10.1 [facility] Serum or plasma creatinine m easurement (mass/volume)Ordered By: Dr. Smiley on 12-09-2022 Creatinine [Mass/Vol] 1.03 mg/dL 0.55-1.02 [facility] Comment on above: The validity of the calculated GFR & GFRAA in patients over 70 years has not been determined. Clinical correlation is essential. Serum or plasma urea nitroge n measurement (mass/volume)Ordered By: Dr. Smiley on 12-09-2022 Urea nitrogen [Mass/Vol] 11 mg/dL 7-18 [facility] Thin prep Papanicolaou smear with manual screeningOrdered By: Dr. Smiley on 12-09-2022 Thin prep Papanicolaou smear with manual screening 20 U/L 15-37 [facility] Thin prep Papanicolaou smear with manual screening 7 5-15 [facility] Whole blood hemoglobin A1c/t otal hemoglobin ratio (mass fraction)Ordered By: Dr. Smiley on 12-09-2022 HbA1c (Bld) [Mass fraction] 7.4 % 3.8-5.6 [facility] Comment on above: Normal < 5.7 % Predi abetic 5.7 - 6.4 % Diabetic >or= 6.5 % Please note range changes. Absolute lymphocyte counton 07-14-2022 Lymphocytes Auto (Unsp spec) [#/Vol] 2.79 10*3/uL 0.83-4.51 [facility] Work Phone: [phone] Basophil percentageon 2021 Basophil percentage 25-50 SEEN /hpf 0-5 [facility] Work Phone: [phone] Basophils/100 WBC (Bld) 0.5 % 0-1 [facility] Work Phone: Bilirubin [Mass/Vol] 0.30 mg/dL 0.20-1.00 [facility] Work Phone: Comment on above: For patients on eltr ombopag therapy, use of Dimension [place] TBIL is not recommended. Chloride [Moles/Vol] 102 mmol/L 98-107 [facility] Work Phone: Eosinophils/100 WBC (Bld) 3.2 % 0-5 [facility] Work Phone: Glucose [Mass/Vol] 143 mg/dL 74-106 [facility] Work Phone: Comment on above: Fasting Glucose resu lt greater than or equal to 126 mg/dL suggests DIABETES MELLITUS per A.D.A. criteria. Neutrophils (Bld) [#/Vol] 4.5 10*3/uL 2.0-7.7 [facility] Work Phone: Neutrophils/100 WBC (Bld) 54.7 % 47-70 [facility] Work Phone: Potassium [Moles/Vol] 4.9 mmol/L 3.5-5.1 [facility] Work Phone: Comment on above: Moderate Hemolysis, Result may be falsely increased. Protein [Mass/Vol] 8.3 g/dL 6.4-8.2 [facility] Work Phone: Sodium [Moles/Vol] 136 mmol/L 136-145 [facility] Work Phone: WBC (Bld) [#/Vol] 8.1 10*3/uL 4.4-11.0 [facility] Work Phone: Bilirubin Test strip Ql (U)o n 07-14-2022 Bilirubin Ql (U) Negative Negative [facility] Work Phone: Blood erythrocytes count (nu mber/volume)on 07-14-2022 RBC (Bld) [#/Vol] 4.15 10*6/uL 4.2-5.4 [facility]: Blood hemoglobin measurement (mass/volume)on 07-14-2022 Hemoglobin (Bld) [Mass/Vol] 12.0 g/dL 12.0-15.0 [facility] Work Phone: Blood lymphocytes/100 leukoc yteson 07-14-2022 Lymphocytes/100 WBC (Bld) 34.4 % 19-41 [facility] Work Phone: Blood monocytes/100 leukocyt eson 07-14-2022 Monocytes/100 WBC (Bld) 6.8 % 0-10 [facility] Work Phone: Blood platelet mean volumeon 07-14-2022 Platelet mean volume (Bld) [Entitic vol] 10.2 fL 6.2-12.0 [facility] Work Phone: Determination of erythrocyte mean corpuscular volume (MCV)on 07-14-2022 MCV (RBC) [Entitic vol] 90.8 fL 81-99 [facility] Work Phone: Hematocrit Auto (Bld) [Volum e fraction]on 07-14-2022 Hematocrit (Bld) [Volume fraction] 37.7 % 37-47 [facility] Work Phone: Ketones Test strip Ql (U)on 07-14-2022 Ketones Ql (U) Negative Negative [facility] Work Phone: Laboratory - Chemistry and C hemistry - challengeon 07-14-2022 ALP [Catalytic activity/Vol] 131 U/L 45-117 [facility] Work Phone: ALT [Catalytic activity/Vol] 33 U/L 13-56 [facility] Work Phone: CO2 [Moles/Vol] 31.0 mmol/L 21.0-32.0 [facility] Work Phone: Globulin (S) [Mass/Vol] 5.0 g/dL 2.2-4.2 [facility] Work Phone: Urea nitrogen/Creatinine [Mass ratio] 14.7 mg/mg 10-20 [facility] Work Phone: Laboratory - Hematology and Cell countson 07-14-2022 Erythrocyte distribution width (RBC) [Entitic vol] 49.9 fL 35.1-43.9 [facility] Work Phone: Erythrocyte distribution width (RBC) [Ratio] 15.1 % 11.6-14.6 [facility] Work Phone: Immature granulocytes/100 WBC (Bld) 0.400 % 0.0-0.9 [facility] Work Phone: Comment on above: IG% - Immature Granu locytes (promyelocytes, myelocytes and metamyelocytes) > 1% indicates that a LEFT SHIFT is Present. MCH (RBC) [Entitic mass] 28.9 pg 27.0-32.0 [facility] Work Phone: Nucleated RBC/100 WBC (Bld) [Ratio] 0 % 0-5 [facility] Work Phone: MCHC Auto (RBC) [Mass/Vol]on 07-14-2022 MCHC (RBC) [Mass/Vol] 31.8 g/dL 32-36 [facility] Work Phone: Mucus LM Ql (Urine sed)on Mucus Ql (Urine sed) 0 SEEN /hpf [facility] Work Phone: Nitrite Test strip Ql (U)on 07-14-2022 Nitrite Ql (U) Negative Negative [facility] Work Phone: No Panel Informationon 07-14 Estimated Creatinine Clearance Calc 40.37 ml/min [facility] Work Phone: Estimated GFR (MDRD) Amer 73 mL/min >60 [facility] Work Phone: Comment on above: GFR Calc Estimated GFR (MDRD) Non-Af Amer 60 mL/min >60 [facility] Work Phone: Comment on above: Non- GFR Calc Platelets bldon 07-14-2022 Platelets (Bld) [#/Vol] 267 10*3/uL 150-450 [facility] Work Phone: Protein Test strip Ql (U)on 07-14-2022 Protein Ql (U) 30 mg/dl Negative [facility] Work Phone: Serum or plasma albumin melanie urement (mass/volume)on 07-14-2022 Albumin [Mass/Vol] 3.3 g/dL 3.2-5.0 [facility] Work Phone: Serum or plasma albumin/glob ulin mass ratioon 07-14-2022 Albumin/Globulin [Mass ratio] 0.7 {ratio} 0.9-2.4 [facility] Work Phone: Serum or plasma calcium melanie urement (mass/volume)on 07-14-2022 Calcium [Mass/Vol] 11.4 mg/dL 8.5-10.1 [facility] Work Phone: Serum or plasma creatinine m easurement (mass/volume)on 07-14-2022 Creatinine [Mass/Vol] 0.95 mg/dL 0.55-1.02 [facility] Work Phone: Comment on above: The validity of the calculated GFR & GFRAA in patients over 70 years has not been determined. Clinical correlation is essential. Serum or plasma urea nitroge n measurement (mass/volume)on 07-14-2022 Urea nitrogen [Mass/Vol] 14 mg/dL 7-18 [facility] Work Phone: Squamous epithelial cells de tection in urine sediment by light microscopyon 07-14-2022 Epithelial cells.squamous LM Ql (Urine sed) 0-5 SEEN /hpf 5-10 [facility] Work Phone: Thin prep Papanicolaou smear with manual screeningon 07-14-2022 Thin prep Papanicolaou smear with manual screening 44 U/L 15-37 [facility] Work Phone: Comment on above: Moderate Hemolysis, Result may be falsely increased. Thin prep Papanicolaou smear with manual screening 3 5-15 [facility] Work Phone: Urine blood detectionon 07-01 RBC Ql (U) 25 /ul Negative [facility] Work Phone: RBC Ql (U) 0 SEEN /hpf 0-5 [facility] Work Phone: Urine clarityon 07-14-2022 Clarity (U) Sl. Cloudy Clear [facility] Work Phone: Urine color determinationon 07-14-2022 Color (U) Yellow Yellow [facility] Work Phone: Urine glucose detectionon Glucose Ql (U) 1000 mg/dl Normal [facility] Work Phone: Urine leukocyte esterase det ection by dipstickon 07-14-2022 Leukocyte esterase Test strip Ql (U) 500 /ul Negative [facility] Work Phone: Urine pHon 07-14-2022 pH (U) 6.0 [pH] 5.0 - 8.0 [facility] Work Phone: Urine sediment bacteria coun t by microscopy (number/high power field)on 07-14-2022 Bacteria LM.HPF (Urine sed) [#/Area] 3 /[HPF] None Seen [facility] Work Phone: Urine specific gravity measu rementon 07-14-2022 Specific gravity (U) [Rel density] 1.015 1.002-1.030 [facility] Work Phone: Urobilinogen Auto test strip Ql (U)on 07-14-2022 Urobilinogen Ql (U) Normal mg/dl Normal [facility] Work Phone: CBC W Auto Differential pane l (Bld)on 05-07-2022 Basophils (Bld) [#/Vol] 0.05 10*3/uL Normal <0.11 [facility] Comment on above: Order Comment: Speci men Type: BLOOD SPECIMEN Ordering Facility: [facility] Address: [address] [place] [address] Performed By: #### 5 7021-8 #### [facility] CLIA [id number] [address] [place] [address] [place] Basophils/100 WBC (Bld) 0.7 % Normal [facility] Comment on above: Order Comment: Speci men Type: BLOOD SPECIMEN Ordering Facility: [facility] Address: [address] [place] [address] Performed By: #### 5 7021-8 #### [facility] CLIA [id number] [address] [place] [address] [place] Differential cell count method Nom (Bld) Auto Normal [facility] Comment on above: Order Comment: Speci men Type: BLOOD SPECIMEN Ordering Facility: [facility] Address: [address] [place] [address] Performed By: #### 5 7021-8 #### [facility] CLIA [id number] [address] [place] [address] [place] Eosinophils (Bld) [#/Vol] 0.32 10*3/uL Normal <0.46 [facility] Comment on above: Order Comment: Speci men Type: BLOOD SPECIMEN Ordering Facility: [facility] Address: [address] [place] [address] Performed By: #### 5 7021-8 #### [facility] CLIA [id number] [address] [place] [address] [place] Eosinophils/100 WBC (Bld) 4.7 % Normal [facility] Comment on above: Order Comment: Speci men Type: BLOOD SPECIMEN Ordering Facility: [facility] Address: [address] [place] [address] Performed By: #### 5 7021-8 #### [facility] CLIA [id number] [address] [place] [address] [place] Erythrocyte distribution width (RBC) [Ratio] 14.6 % Normal 11.5-15.0 [facility] Comment on above: Order Comment: Speci men Type: BLOOD SPECIMEN Ordering Facility: [facility] Address: [address] [place] [address] Performed By: #### 5 7021-8 #### [facility] CLIA [id number] [address] [place] [address] [place] Hematocrit (Bld) [Volume fraction] 37.2 % Normal 36.0-46.0 [facility] Comment on above: Order Comment: Speci men Type: BLOOD SPECIMEN Ordering Facility: [facility] Address: [address] [place] [address] Performed By: #### 5 7021-8 #### [facility] CLIA [id number] [address] [place] [address] [place] Hemoglobin (Bld) [Mass/Vol] 12.0 g/dL Normal 11.5-15.5 [facility] Comment on above: Order Comment: Speci men Type: BLOOD SPECIMEN Ordering Facility: [facility] Address: [address] [place] [address] Performed By: #### 5 7021-8 #### [facility] CLIA [id number] [address] [place] [address] [place] IMMATURE GRAN % 0.1 % Normal [facility] Comment on above: Order Comment: Speci men Type: BLOOD SPECIMEN Ordering Facility: [facility] Address: [address] [place] [address] Performed By: #### 5 7021-8 #### [facility] CLIA [id number] [address] [place] [address] [place] IMMATURE GRAN ABS <0.03 Normal <0.10 [facility] Comment on above: Order Comment: Speci men Type: BLOOD SPECIMEN Ordering Facility: [facility] Address: [address] [place] [address] Performed By: #### 5 7021-8 #### [facility] CLIA [id number] [address] [place] [address] [place] [facility] [place] Lymphocytes (Bld) [#/Vol] 2.03 10*3/uL Normal 1.00-4.00 [facility] Comment on above: Order Comment: Speci men Type: BLOOD SPECIMEN Ordering Facility: [facility] Address: [address] [place] [address] Performed By: #### 5 7021-8 #### [facility] CLIA [id number] [address] [place] [address] Lymphocytes/100 WBC (Bld) 29.7 % Normal [facility] Comment on above: Order Comment: Speci men Type: BLOOD SPECIMEN Ordering Facility: [facility] Address: [address] [place], [place] [address] Performed By: #### 5 7021-8 #### [facility] CLIA [id number] [address] [place] [address] [place] MCH (RBC) [Entitic mass] 28.5 pg Normal 26.0-34.0 [facility] Comment on above: Order Comment: Speci men Type: BLOOD SPECIMEN Ordering Facility: [facility] Address: [address] [place] [address] Performed By: #### 5 7021-8 #### [facility] CLIA [id number] [address] [place] [address] [place] MCHC (RBC) [Mass/Vol] 32.3 g/dL Normal 30.5-36.0 [facility] Comment on above: Order Comment: Speci men Type: BLOOD SPECIMEN Ordering Facility: [facility] Address: [address] [place] [address] Performed By: #### 5 7021-8 #### [facility] CLIA [id number] [address] [place] [address] [place] MCV (RBC) [Entitic vol] 88.4 fL Normal 80.0-100.0 [facility] Comment on above: Order Comment: Speci men Type: BLOOD SPECIMEN Ordering Facility: [facility] Address: [address] [place] [address] Performed By: #### 5 7021-8 #### [facility] CLIA [id number] [address] [place] [address] [place] Monocytes (Bld) [#/Vol] 0.47 10*3/uL Normal <0.87 [facility] Comment on above: Order Comment: Speci men Type: BLOOD SPECIMEN Ordering Facility: [facility] Address: [address] [place] [address] Performed By: #### 5 7021-8 #### [facility] CLIA [id number] [address] [place] [address] [place] Monocytes/100 WBC (Bld) 6.9 % Normal [facility] Comment on above: Order Comment: Speci men Type: BLOOD SPECIMEN Ordering Facility: [facility] Address: [address] [place] [address] Performed By: #### 5 7021-8 #### [facility] CLIA [id number] [address] [place] [address] [place] Neutrophils (Bld) [#/Vol] 3.96 10*3/uL Normal 1.45-7.50 [facility] Comment on above: Order Comment: Speci men Type: BLOOD SPECIMEN Ordering Facility: [facility] Address: [address] [place] [address] Performed By: #### 5 7021-8 #### [facility] CLIA [id number] [address] [place] [address] [place] Neutrophils/100 WBC (Bld) 57.9 % Normal [facility] Comment on above: Order Comment: Speci men Type: BLOOD SPECIMEN Ordering Facility: [facility] Address: [address] [place] [address] Performed By: #### 5 7021-8 #### [facility] CLIA [id number] [address] [place] [address] [place] Nucleated RBC (Bld) [#/Vol] 10*3/uL Normal <0.01 [facility] Comment on above: Order Comment: Speci men Type: BLOOD SPECIMEN Ordering Facility: [facility] Address: [address] [place] [address] Performed By: #### 5 7021-8 #### [facility] CLIA [id number] [address] [place] [address] [place] Nucleated RBC/100 WBC (Bld) [Ratio] 0.0 /100 WBC Normal [facility] Comment on above: Order Comment: Speci men Type: BLOOD SPECIMEN Ordering Facility: [facility] Address: [address] [place], [place] [address] Performed By: #### 5 7021-8 #### [facility] CLIA [id number] [address] [place] [address] [place] Platelet mean volume (Bld) [Entitic vol] 10.0 fL Normal 9.0-12.7 [facility] Comment on above: Order Comment: Speci men Type: BLOOD SPECIMEN Ordering Facility: [facility] Address: [address] [place] [address] Performed By: #### 5 7021-8 #### [facility] CLIA [id number] [address] [place] [address] [place] Platelets (Bld) [#/Vol] 246 10*3/uL Normal 150-400 [facility] Comment on above: Order Comment: Speci men Type: BLOOD SPECIMEN Ordering Facility: [facility] Address: [address] [place] [address] Performed By: #### 5 7021-8 #### [facility] CLIA [id number] [address] [place] [address] [place] RBC (Bld) [#/Vol] 4.21 10*6/uL Normal 3.90-5.20 [facility] Comment on above: Order Comment: Speci men Type: BLOOD SPECIMEN Ordering Facility: [facility] Address: [address] [place] [address] Performed By: #### 5 7021-8 #### [facility] CLIA [id number] [address] [place] [address] [place] WBC (Bld) [#/Vol] 6.84 10*3/uL Normal 3.70-11.00 [facility] Comment on above: Order Comment: Speci men Type: BLOOD SPECIMEN Ordering Facility: [facility] Address: [address] [place] [address] Performed By: #### 5 7021-8 #### [facility] CLIA [id number] [address] [place] [address] OF [place] CNOVSPon 05-07-2022 CNOVSP Visit (SP) Office (HEMAWS) OGLA DONALDSON ([id number]) 1945 F Date Time Provider Department 05/07/22 [...] an every 2-week basis for 4 cycles ([id number]). Completed a year of trastuzumab 06/16/06. Referred back or anemia. Admitted to [facility] 12/02/2019 for chest pain with ambulation. [...] 1.00 - 4.00 k/uL 2.70 2.30 2.03 [place]% % 7.0 6.6 6.9 Abs [place] <0.87 k/uL 0.49 0.47 0.47 Eosin% % 4.9 3.2 4.7 Abs Eosin <0.46 k/uL 0.34 0.23 0.32 Baso% % 0.7 0.6 0.7 Abs Baso <0.11 k/uL 0.05 0.04 0.05 Immature (more content not included)... Normal [facility] Ferritin [facility] 2021 Ferritin [Mass/Vol] 808.0 ng/mL High 14.7-205.1 [facility] Comment on above: Order Comment: Speci men Type: BLOOD SPECIMEN Ordering Facility: [facility] Address: [address] [place], [place] [address] Performed By: #### 5 0190-8, 2276-4 #### [facility] CLIA [id number] [address] [place] [address] Iron and Iron binding capaci ty panelon 05-07-2022 Iron [Mass/Vol] 38 ug/dL Low 41-186 [facility] Comment on above: Order Comment: Flip headley Type: BLOOD SPECIMEN Ordering Facility: [facility] Address: [address] [place] [address] Performed By: #### 5 0190-8, 2276-4 #### [facility] CLIA [id number] [address] [place] [address] Iron binding capacity [Mass/Vol] 240 ug/dL Normal 232-386 [facility] Comment on above: Order Comment: Speclety men Type: BLOOD SPECIMEN Ordering Facility: [facility] Address: [address] [place] [address] Performed By: #### 5 0190-8, 2276-4 #### [facility] CLIA [id number] [address] [place] [address] Iron/TIBC [Molar ratio] 15.8 % Normal 15.0-57.0 [facility] Comment on above: Order Comment: Flip headley Type: BLOOD SPECIMEN Ordering Facility: [facility] Address: [address] [place] [address] Performed By: #### 5 0190-8, 2276-4 #### [facility] CLIA [id number] [address] [place] [address] [place] Justine 02-10-2022 [place] Telephone (HEMAWS) OLGA DONALDSON ([id number]) 1945 F Date Time Provider Department 02/10/22 [...] Date Reviewed: 05/07/2021 Reviewed by: 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 APRN.FOOT [employer]TER - Fully Assessed Reason for Visit: Results [...] MIST) 0.65 % nasal spray Use 1 [place] in the nose as needed. - diltiazem [...] by STACIE VARNER LPN on 02/10/22 Normal [facility] CBC W Auto Differential pane l (Bld)on 02-03-2022 Basophils (Bld) [#/Vol] 0.04 10*3/uL Normal <0.11 [facility] Comment on above: Order Comment: Speci men Type: BLOOD SPECIMEN Ordering Facility: [facility] Address: [address] [place] [address] Performed By: #### 5 7021-8 #### [facility] FOZIA [id number] [address] [place] [address] [place] Basophils/100 WBC (Bld) 0.6 % Normal [facility] Comment on above: Order Comment: Speci men Type: BLOOD SPECIMEN Ordering Facility: [facility] Address: [address] [place] [address] Performed By: #### 5 7021-8 #### [facility] CLIA [id number] [address] [place] [address] [place] Differential cell count method Nom (Bld) Auto Normal [facility] Comment on above: Order Comment: Speci men Type: BLOOD SPECIMEN Ordering Facility: [facility] Address: [address] [place] [address] Performed By: #### 5 7021-8 #### [facility] CLIA [id number] [address] [place] [address] [place] Eosinophils (Bld) [#/Vol] 0.23 10*3/uL Normal <0.46 [facility] Comment on above: Order Comment: Speci men Type: BLOOD SPECIMEN Ordering Facility: [facility] Address: [address] [place] [address] Performed By: #### 5 7021-8 #### [facility] CLIA [id number] [address] [place] [address] [place] Eosinophils/100 WBC (Bld) 3.2 % Normal [facility] Comment on above: Order Comment: Speci men Type: BLOOD SPECIMEN Ordering Facility: [facility] Address: [address] [place] [address] Performed By: #### 5 7021-8 #### [facility] CLIA [id number] [address] [place] [address] [place] Erythrocyte distribution width (RBC) [Ratio] 14.3 % Normal 11.5-15.0 [facility] Comment on above: Order Comment: Speci men Type: BLOOD SPECIMEN Ordering Facility: [facility] Address: [address] [place] [address] Performed By: #### 5 7021-8 #### [facility] CLIA [id number] [address] [place] [address] Hematocrit (Bld) [Volume fraction] 39.7 % Normal 36.0-46.0 [facility] Comment on above: Order Comment: Speci men Type: BLOOD SPECIMEN Ordering Facility: [facility] Address: [address] [place] [address] Performed By: #### 5 7021-8 #### [id number] [address] [place] [address] [place] Hemoglobin (Bld) [Mass/Vol] 12.8 g/dL Normal 11.5-15.5 [facility] Comment on above: Order Comment: Speci men Type: BLOOD SPECIMEN Ordering Facility: [facility] Address: [address] [place] [address] Performed By: #### 5 7021-8 #### [id number] [address] [place] [address] OF [facility] IMMATURE GRAN % 0.3 % Normal [facility] Comment on above: Order Comment: Speci men Type: BLOOD SPECIMEN Ordering Facility: [facility] Address: [address] [place] [address] Performed By: #### 5 7021-8 #### [facility] CLIA [id number] [address] [place] [address] [place] IMMATURE GRAN ABS <0.03 Normal <0.10 [facility] Comment on above: Order Comment: Speci men Type: BLOOD SPECIMEN Ordering Facility: [facility] Address: [address] [place] [address] Performed By: #### 5 7021-8 #### [facility] CLIA [id number] [address] [place] [address] [place] Lymphocytes (Bld) [#/Vol] 2.30 10*3/uL Normal 1.00-4.00 [facility] Comment on above: Order Comment: Speci men Type: BLOOD SPECIMEN Ordering Facility: [facility] Address: [address] [place] [address] Performed By: #### 5 7021-8 #### [facility] CLIA [id number] [address] [place] [address] [place] Lymphocytes/100 WBC (Bld) 32.1 % Normal [facility] Comment on above: Order Comment: Speci men Type: BLOOD SPECIMEN Ordering Facility: [facility] Address: [address] [place] [address] Performed By: #### 5 7021-8 #### [facility] CLIA [id number] [address] [place] [address] [place] MCH (RBC) [Entitic mass] 28.8 pg Normal 26.0-34.0 [facility] Comment on above: Order Comment: Speci men Type: BLOOD SPECIMEN Ordering Facility: [facility] Address: [address] [place] [address] Performed By: #### 5 7021-8 #### [facility] CLIA [id number] [address] [place] [address] [place] MCHC (RBC) [Mass/Vol] 32.2 g/dL Normal 30.5-36.0 [facility] Comment on above: Order Comment: Speci men Type: BLOOD SPECIMEN Ordering Facility: [facility] Address: [address] [place] [address] Performed By: #### 5 7021-8 #### [facility] CLIA [id number] [address] [place] [address] [place] MCV (RBC) [Entitic vol] 89.4 fL Normal 80.0-100.0 [facility] Comment on above: Order Comment: Speci men Type: BLOOD SPECIMEN Ordering Facility: [facility] Address: [address] [place], [place] [address] Performed By: #### 5 7021-8 #### [facility] CLIA [id number] [address] [place] [address] [place] Monocytes (Bld) [#/Vol] 0.47 10*3/uL Normal <0.87 [facility] Comment on above: Order Comment: Speci men Type: BLOOD SPECIMEN Ordering Facility: [facility] Address: [address] [place], [place] [address] Performed By: #### 5 7021-8 #### [facility] CLIA [id number] [address] [place] [address] [place] Monocytes/100 WBC (Bld) 6.6 % Normal [facility] Comment on above: Order Comment: Speci men Type: BLOOD SPECIMEN Ordering Facility: [facility] Address: [address] [place], [place] [address] Performed By: #### 5 7021-8 #### [facility] CLIA [id number] [address] [place] [address] [place] Neutrophils (Bld) [#/Vol] 4.11 10*3/uL Normal 1.45-7.50 [facility] Comment on above: Order Comment: Speci men Type: BLOOD SPECIMEN Ordering Facility: [facility] Address: [address] [place], [place] [address] Performed By: #### 5 7021-8 #### [facility] CLIA [id number] [address] [place] [address] [place] Neutrophils/100 WBC (Bld) 57.2 % Normal [facility] Comment on above: Order Comment: Speci men Type: BLOOD SPECIMEN Ordering Facility: [facility] Address: [address] [place], [place] [address] Performed By: #### 5 7021-8 #### [facility] CLIA [id number] [address] [place] [address] [place] Nucleated RBC (Bld) [#/Vol] 10*3/uL Normal <0.01 [facility] Comment on above: Order Comment: Speci men Type: BLOOD SPECIMEN Ordering Facility: [facility] Address: [address] [place], [place] [address] Performed By: #### 5 7021-8 #### [facility] CLIA [id number] [address] [place] [address] [place] Nucleated RBC/100 WBC (Bld) [Ratio] 0.0 /100 WBC Normal [facility] Comment on above: Order Comment: Speci men Type: BLOOD SPECIMEN Ordering Facility: [facility] Address: [address] [place], [place] [address] Performed By: #### 5 7021-8 #### [facility] CLIA [id number] [address] [place] [address] [place] Platelet mean volume (Bld) [Entitic vol] 10.3 fL Normal 9.0-12.7 [facility] Comment on above: Order Comment: Speci men Type: BLOOD SPECIMEN Ordering Facility: [facility] Address: [address] [place], [place] [address] Performed By: #### 5 7021-8 #### [facility] CLIA [id number] [address] [place] [address] [place] Platelets (Bld) [#/Vol] 265 10*3/uL Normal 150-400 [facility] Comment on above: Order Comment: Speci men Type: BLOOD SPECIMEN Ordering Facility: [facility] Address: [address] [place], [place] [address] Performed By: #### 5 7021-8 #### [facility] CLIA [id number] [address] [place] [address] [place] RBC (Bld) [#/Vol] 4.44 10*6/uL Normal 3.90-5.20 [facility] Comment on above: Order Comment: Speci men Type: BLOOD SPECIMEN Ordering Facility: [facility] Address: [address] [place] [address] Performed By: #### 5 7021-8 #### [facility] CLIA [id number] [address] [place] [address] [place] WBC (Bld) [#/Vol] 7.17 10*3/uL Normal 3.70-11.00 [facility] Comment on above: Order Comment: Speci men Type: BLOOD SPECIMEN Ordering Facility: [facility] Address: [address] [place] [address] Performed By: #### 5 7021-8 #### [facility] CLIA [id number] [address] [place] [address] [place] FERRITIN BLDon 02-03-2022 Ferritin [Mass/Vol] 1132.0 ng/mL High 14.7-205.1 [facility] Comment on above: Order Comment: Speci men Type: BLOOD SPECIMEN Ordering Facility: [facility] Address: [address] [place] [address] Performed By: #### F ERR, IRON #### [facility] CLIA [id number] [address] [place] [address] [place] IRON + TIBCon 02-03-2022 Iron [Mass/Vol] 66 ug/dL Normal 41-186 [facility] Comment on above: Order Comment: Speci men Type: BLOOD SPECIMEN Ordering Facility: [facility] Address: [address] [place] [address] Performed By: #### F ERR, IRON #### [facility] CLIA [id number] [address] [id number] [address] [place] Iron binding capacity [Mass/Vol] 286 ug/dL Normal 232-386 [facility] Comment on above: Order Comment: Speci men Type: BLOOD SPECIMEN Ordering Facility: [facility] Address: [address] [place], [place] [address] Performed By: #### F ERR, IRON #### [facility] CLIA [id number] [address] [place] [address] [place] Iron/TIBC [Molar ratio] 23 % Normal 15-57 [facility] Comment on above: Order Comment: Speci men Type: BLOOD SPECIMEN Ordering Facility: [facility] Address: [address] [place], [place] [address] Performed By: #### F ERR, IRON #### [facility] CLIA [id number] [address] [place] [address] [place] Bacteria identified Anaer cx Nom (Unsp spec)on 12-02-2021 Anaerobic microbial culture No anaerobic bacteria isolated. [facility] Work Phone: Bacteria identified Cx Nom ( Wound)on 12-02-2021 Wound Culture Negative [facility] Work Phone: Wound Culture Staphylococcus epidermidis [facility] Work Phone: Wound Culture Corynebacterium striatum [facility] Work Phone: Gram stain for investigation of transfusion reactionon 12-02-2021 Microscopic observation Gram stain Nom (Unsp spec) [facility] Work Phone: CBC W Auto Differential pane l (Bld)on 11-04-2021 Basophils (Bld) [#/Vol] 0.05 10*3/uL Normal <0.11 [facility] Comment on above: Order Comment: Speci men Type: BLOOD SPECIMEN Ordering Facility: [facility] Address: [address] [place], [place] [address] Performed By: #### 5 7021-8 #### [facility] CLIA [id number] [address] [place] [address] [place] Basophils/100 WBC (Bld) 0.7 % Normal [facility] Comment on above: Order Comment: Speci men Type: BLOOD SPECIMEN Ordering Facility: [facility] Address: [address] [place] [address] Performed By: #### 5 7021-8 #### [facility] CLIA [id number] [address] [place] [address] [place] Differential cell count method Nom (Bld) Auto Normal [facility] Comment on above: Order Comment: Speci men Type: BLOOD SPECIMEN Ordering Facility: [facility] Address: [address] [place] [address] Performed By: #### 5 7021-8 #### [facility] CLIA [id number] [address] [place] [address] [place] Eosinophils (Bld) [#/Vol] 0.34 10*3/uL Normal <0.46 [facility] Comment on above: Order Comment: Speci men Type: BLOOD SPECIMEN Ordering Facility: [facility] Address: [address] [place] [address] Performed By: #### 5 7021-8 #### [facility] CLIA [id number] [address] [place] [address] [place] Eosinophils/100 WBC (Bld) 4.9 % Normal [facility] Comment on above: Order Comment: Speci men Type: BLOOD SPECIMEN Ordering Facility: [facility] Address: [address] [place] [address] Performed By: #### 5 7021-8 #### [facility] CLIA [id number] [address] [place] [address] [place] Erythrocyte distribution width (RBC) [Ratio] 13.3 % Normal 11.5-15.0 [facility] Comment on above: Order Comment: Speci men Type: BLOOD SPECIMEN Ordering Facility: [facility] Address: [address] [place] [address] Performed By: #### 5 7021-8 #### [facility] CLIA [id number] [address] [place] [address] OF [facility] Hematocrit (Bld) [Volume fraction] 40.4 % Normal 36.0-46.0 [facility] Comment on above: Order Comment: Speci men Type: BLOOD SPECIMEN Ordering Facility: [facility] Address: [address] [place] [address] Performed By: #### 5 7021-8 #### [facility] CLIA [id number] [address] [place] [address] [place] Hemoglobin (Bld) [Mass/Vol] 12.9 g/dL Normal 11.5-15.5 [facility] Comment on above: Order Comment: Speci men Type: BLOOD SPECIMEN Ordering Facility: [facility] Address: [address] [place] [address] Performed By: #### 5 7021-8 #### [id number] [address] [place] [address] OF [facility] IMMATURE GRAN % 0.1 % Normal [facility] Comment on above: Order Comment: Speci men Type: BLOOD SPECIMEN Ordering Facility: [facility] Address: [address] [place] [address] Performed By: #### 5 7021-8 #### [facility] CLIA [id number] [address] [place] [address] OF [facility] IMMATURE GRAN ABS <0.03 Normal <0.10 [facility] Comment on above: Order Comment: Speci men Type: BLOOD SPECIMEN Ordering Facility: [facility] Address: [address] [place] [address] Performed By: #### 5 7021-8 #### [facility] CLIA [id number] [address] [place], [place] [id number] [place] Lymphocytes (Bld) [#/Vol] 2.70 10*3/uL Normal 1.00-4.00 [facility] Comment on above: Order Comment: Speci men Type: BLOOD SPECIMEN Ordering Facility: [facility] Address: [address] [place] [address] Performed By: #### 5 7021-8 #### [facility] CLIA [id number] [address] [place] [address] [place] Lymphocytes/100 WBC (Bld) 38.6 % Normal [facility] Comment on above: Order Comment: Speci men Type: BLOOD SPECIMEN Ordering Facility: [facility] Address: [address] [place] [address] Performed By: #### 5 7021-8 #### [facility] CLIA [id number] [address] [place] [address] [place] MCH (RBC) [Entitic mass] 28.9 pg Normal 26.0-34.0 [facility] Comment on above: Order Comment: Speci men Type: BLOOD SPECIMEN Ordering Facility: [facility] Address: [address] [place] [address] Performed By: #### 5 7021-8 #### [facility] CLIA [id number] [address] [place] [address] [place] MCHC (RBC) [Mass/Vol] 31.9 g/dL Normal 30.5-36.0 [facility] Comment on above: Order Comment: Speci men Type: BLOOD SPECIMEN Ordering Facility: [facility] Address: [address] [place] [address] Performed By: #### 5 7021-8 #### [facility] CLIA [id number] [address] [place] [address] [place] MCV (RBC) [Entitic vol] 90.4 fL Normal 80.0-100.0 [facility] Comment on above: Order Comment: Speci men Type: BLOOD SPECIMEN Ordering Facility: [facility] Address: [address] [place], [place] [address] Performed By: #### 5 7021-8 #### [facility] CLIA [id number] [address] [place] [address] [place] Monocytes (Bld) [#/Vol] 0.49 10*3/uL Normal <0.87 [facility] Comment on above: Order Comment: Speci men Type: BLOOD SPECIMEN Ordering Facility: [facility] Address: [address] [place], [place] [address] Performed By: #### 5 7021-8 #### [facility] CLIA [id number] [address] [place] [address] [place] Monocytes/100 WBC (Bld) 7.0 % Normal [facility] Comment on above: Order Comment: Speci men Type: BLOOD SPECIMEN Ordering Facility: [facility] Address: [address] [place], [place] [address] Performed By: #### 5 7021-8 #### [facility] CLIA [id number] [address] [place] [address] [place] Neutrophils (Bld) [#/Vol] 3.40 10*3/uL Normal 1.45-7.50 [facility] Comment on above: Order Comment: Speci men Type: BLOOD SPECIMEN Ordering Facility: [facility] Address: [address] [place], [place] [address] Performed By: #### 5 7021-8 #### [facility] CLIA [id number] [address] [place] [address] [place] Neutrophils/100 WBC (Bld) 48.7 % Normal [facility] Comment on above: Order Comment: Speci men Type: BLOOD SPECIMEN Ordering Facility: [facility] Address: [address] [place], [place] [address] Performed By: #### 5 7021-8 #### [facility] CLIA [id number] [address] [place] [address] [place] Nucleated RBC (Bld) [#/Vol] 10*3/uL Normal <0.01 [facility] Comment on above: Order Comment: Speci men Type: BLOOD SPECIMEN Ordering Facility: [facility] Address: [address] [place], [place] [address] Performed By: #### 5 7021-8 #### [facility] CLIA [id number] [address] [place] [address] [place] Nucleated RBC/100 WBC (Bld) [Ratio] 0.0 /100 WBC Normal [facility] Comment on above: Order Comment: Speci men Type: BLOOD SPECIMEN Ordering Facility: [facility] Address: [address] [place], [place] [address] Performed By: #### 5 7021-8 #### [id number] [address] [place] [address] [place] Platelet mean volume (Bld) [Entitic vol] 10.1 fL Normal 9.0-12.7 [facility] Comment on above: Order Comment: Speci men Type: BLOOD SPECIMEN Ordering Facility: [facility] Address: [address] [place] [id number] Performed By: #### 5 7021-8 #### [facility] CLIA [id number] [address] [place] [address] [place] Platelets (Bld) [#/Vol] 246 10*3/uL Normal 150-400 [facility] Comment on above: Order Comment: Speci men Type: BLOOD SPECIMEN Ordering Facility: [facility] Address: [address] [place] [address] Performed By: #### 5 7021-8 #### [facility] [id number] [address] [place] [address] [place] RBC (Bld) [#/Vol] 4.47 10*6/uL Normal 3.90-5.20 [facility] Comment on above: Order Comment: Speci men Type: BLOOD SPECIMEN Ordering Facility: [facility] Address: [address] [place] [address] Performed By: #### 5 7021-8 #### [facility] CLIA [id number] [address] [place] [address] [place] WBC (Bld) [#/Vol] 6.99 10*3/uL Normal 3.70-11.00 [facility] Comment on above: Order Comment: Speci men Type: BLOOD SPECIMEN Ordering Facility: [facility] Address: [address] [place] [address] Performed By: #### 5 7021-8 #### [facility] CLIA [id number] [address] [place] [address] [place] FERRITIN BLDon 11-04-2021 Ferritin [Mass/Vol] 1428.0 ng/mL High 14.7-205.1 [facility] Comment on above: Order Comment: Speci men Type: BLOOD SPECIMEN Ordering Facility: [facility] Address: [address] [place] [address] Performed By: #### I VICTOR MANUEL, FERR #### [facility] CLIA [id number] [address] [place] [address] [place] IRON + TIBCon 11-04-2021 Iron [Mass/Vol] 60 ug/dL Normal 41-186 [facility] Comment on above: Order Comment: Speci men Type: BLOOD SPECIMEN Ordering Facility: [facility] Address: [address] [place] [address] Performed By: #### I VICTOR MANUEL, FERR #### [facility] CLIA [id number] [address] [place] [address] [place] Iron binding capacity [Mass/Vol] 242 ug/dL Normal 232-386 [facility] Comment on above: Order Comment: Flip headley Type: BLOOD SPECIMEN Ordering Facility: [facility] Address: [address] [place] [address] Performed By: #### I EVELIA RUSH #### [facility] CLIA [id number] [address] [place] [address] [facility] Iron/TIBC [Molar ratio] 25 % Normal 15-57 [facility] Comment on above: Order Comment: Flip headley Type: BLOOD SPECIMEN Ordering Facility: [facility] Address: [address] [place] [address] Performed By: #### I EVELIA RUSH #### [facility] CLIA [id number] [address] [place] [address] Justine 09-29-2021 JOCELYNE Telephone (HEMPREETHI) OLGA DONALDSON ([id number]) 1945 F Date Time Provider Department 09/29/21 [...] Date Reviewed: 05/07/2021 Reviewed by: 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 APRN.FOOT CUTTER - Fully Assessed Reason for Visit: Results [95] Follow Up [171] Primary Visit Diagnosis:Anemia, unspecified type [D64.9] Order(s):CBC + DIFF [SQCBCDIF] Order #: [id number] FUTURE COMP METABOLIC PANEL [SQCMP] Order #: [id number] FUTURE PROTEIN ELECTROPHORESIS SERUM W/INTERP [SQSEPG] Order #: [id number] FUTURE MONOCLONAL PROTEIN, SERUM (BLOOD) [SQSERMPA] Order #: [id number] FUTURE Prescriptions as of 04/12/2022 - ascorbic [...] MIST) 0.65 % nasal spray Use 1 [place] in the nose as needed. - diltiazem [...] Specified Conge (more content not included)... Normal [facility] Justine 05-09-2021 JOCELYNE Telephone (EVELYN) OLGA DONALDSON ([id number]) 1945 F Date Time Provider Department 05/09/21 [...] Date Reviewed: 05/07/2021 Reviewed by: 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 APRN.FOOT CUTTER - Fully Assessed Reason for Visit: Results [...] MIST) 0.65 % nasal spray Use 1 [place] in the nose as needed. - diltiazem [...] by STACIE VARNER LPN on 05/09/21 Normal [facility] Laboratory - Specimen inform ationon 03-27-2021 Specimen source Nom (Unsp spec) Stool [facility] No Panel Informationon 03-27 Occult Blood Diagnostic Positive [facility] FERRITIN BLDon 03-22-2021 Ferritin [Mass/Vol] 1064.0 ng/mL High 14.7 - 2 05.1 ng/mL [facility] CULTURE FUNGUSon 02-08-2018 CULTURE FUNGUS 1 Organism Nithya albicans Many Normal [facility] Comment on above: Performed By: #### C /FUN, S/FUN ####[facility] [id number] [place] [address] STAIN FUNGUSon 01-19-2018 STAIN FUNGUS STAIN FUNGUS --> Status: F 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 Direct exam by Calcofluor stain. Direct exam by Calcofluor stain. Normal [facility] Comment on above: Performed By: #### C /FUN, S/FUN ####[facility] [id number] [place] [address] Office Visit: Rudy- Romero mina 01-13-2017 Adolescent depression screening assessment Adolescent depression screening assessment Invalid Interpretation Code [facility] Work Phone: Adult depression screening assessment Adolescent depression screening assessment [facility] Work Phone: Documentation of current medications (procedure) Done Invalid Interpretation Code [facility] Work Phone: [phone] Fall risk assessment Fall risk assessment [facility] Work Phone: [phone] Tobacco smoking status NHIS Never [facility] Work Phone: [phone] Tobacco smoking status NHIS Former smoker [facility] Work Phone: [phone] Tobacco use [facility] Former smoker Invalid Interpretation Code [facility] Work Phone: [phone] 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 Left ventricular Ejection fraction 70 % [facility] Work Phone: [phone] Office Visiton 08-29-2015 cardiac risk group [facility] Work Phone: [phone] General cardiovascular disease 10Y risk [#] Fouke.Mirza'Frances Not enough information [facility] Work Phone: [phone] Replaced Document: Midmark E CG Observationson 08-29-2015 EKG QRS axis 29 deg [facility] Work Phone: [phone] electrocardiogram interpretation Sinus Tachycardia -With rate variation cv = 10.WITHIN NORMAL LIMITS Invalid Interpretation Code [facility] Work Phone: [phone] GE use only - for LinkLogic import when terms are not otherwise specified 411 ms Invalid Interpretation Code [facility] Work Phone: [phone] Interpretation Sinus Tachycardia -With rate variation cv = 10.WITHIN NORMAL LIMITS [facility] Work Phone: [phone] P [place] 41 deg [facility] Work Phone: [phone] P wave axis, electrocardiogram 41 deg Invalid Interpretation Code [facility] Work Phone: [phone] WV Interval 134 ms [facility] Work Phone: [phone] WV interval, electrocardiogram 134 ms Invalid Interpretation Code [facility] Work Phone: [phone] Pulse (Heart Rate) 109 /min Invalid Interpretation Code [facility] Work Phone: [phone] QRS axis, electrocardiogram 29 deg Invalid Interpretation Code [facility] Work Phone: [phone] QRS Duration 80 ms [facility] Work Phone: [phone] QRS duration, electrocardiogram 80 ms Invalid Interpretation Code [facility] Work Phone: [phone] QT Interval new path ms [facility] Work Phone: [phone] QT interval, electrocardiogram new path ms Invalid Interpretation Code [facility] Work Phone: [phone] QTc [place] 411 ms [facility] Work Phone: [phone] T [place] 37 deg [facility] Work Phone: [phone] T wave axis, electrocardiogram 37 deg Invalid Interpretation Code [facility] Work Phone: [phone] Bacteria identified Anaer cx Nom (Unsp spec) Anaerobic microbial culture No anaerobic bacteria isolated. [facility] Work Phone: Bacteria identified Cx Nom ( Wound) Wound Culture Negative [facility] Work Phone: Wound Culture Staphylococcus epidermidis [facility] Work Phone: Wound Culture Corynebacterium striatum [facility] Work Phone: Culture, urine Bacteria identified Cx Nom (U) Klebsiella pneumoniae sp pneum [facility] Work Phone: Gram stain for investigation of transfusion reaction Microscopic observation Gram stain Nom (Unsp spec) [facility] Work Phone: Vital Signs Date Time Vital Sign Value Performing Clinician Facility 03-04-2025 23:10-0400 Body temperature 98 [degF] Dr. Ramone Smiley MD Work Phone: [facility] 03-04-2025 23:10-0400 Diastolic blood pressure 80 mm[Hg] Dr. Ramone Smiley MD Work Phone: [facility] 03-04-2025 23:10-0400 Heart rate 81 /min Dr. Ramone Smiley MD Work Phone: [facility] 03-04-2025 23:10-0400 Respiratory rate 16 /min Dr. Ramone Smiley MD Work Phone: [facility] 03-04-2025 23:10-0400 SaO2% (BldA) [Mass fraction] 95 % Dr. Ramone Smiley MD Work Phone: [facility] 03-04-2025 23:10-0400 Systolic blood pressure 135 mm[Hg] Dr. Ramone Smiley MD Work Phone: 8(834)018-063001 [place] [address] 03-04-2025 19:04-0400 Inhaled oxygen flow rate 2 L/min Dr. Ramone Smiley MD Work Phone: 3(056)682-915001 [place] [address] 03-04-2025 18:54-0400 Body mass index (BMI) [Ratio] 28 kg/m2 Dr. Ramone Smiley MD Work Phone: 4(763)792-609601 [place] [address] 03-04-2025 18:54-0400 Body weight 71.[address] Ramone Smiley MD Work Phone: 2(318)711-19[address] [place] [address] 03-04-2025 18:37-0400 Body height 160.[address] Ramone Smiley MD Work Phone: 3(937)994-411501 [place] [address] 02-19-2025 00:38-0400 Body temperature 98.7 [degF] Dr. Ramone Smiley MD Work Phone: 9(201)813-447701 [place] [address] 02-19-2025 00:38-0400 Diastolic blood pressure 86 mm[Hg] Dr. Ramone Smiley MD Work Phone: 8(018)983-698601 [place] [address] 02-19-2025 00:38-0400 Heart rate 98 /min Dr. Ramone Smiley MD Work Phone: 0(593)857-801101 [place] [address] 02-19-2025 00:38-0400 Respiratory rate 22 /min Dr. Ramone Smiley MD Work Phone: 4(985)628-994801 [place] [address] 02-19-2025 00:38-0400 SaO2% (BldA) [Mass fraction] 98 % Dr. Ramone Smiley MD Work Phone: 7(814)600-285401 [place] [address] 02-19-2025 00:38-0400 Systolic blood pressure 122 mm[Hg] Dr. Ramone Smiley MD Work Phone: 8(866)115-055801 [place] [address] 02-19-2025 00:23-0400 Inhaled oxygen flow rate 2 L/min Dr. Ramone Smiley MD Work Phone: 1(418)329-243901 [place] [address] 02-18-2025 20:51-0400 Body height 160.[address] Ramone Smiley MD Work Phone: [facility] 02-18-2025 20:51-0400 Body mass index (BMI) [Ratio] 30.4 kg/m2 Dr. Ramone Smiley MD Work Phone: 4(671)171-996342 [place] [address] 02-18-2025 20:51-0400 Body weight 77.[address] Ramone Smiley MD Work Phone: 8(775)330-999542 [place] [address] 02-17-2025 18:40-0400 Heart rate 78 /min Dr. Ramone Smiley MD Work Phone: 0(186)132-610201 [place] [address] 02-17-2025 18:40-0400 Inhaled oxygen flow rate 2 L/min Dr. Ramone Smiley MD Work Phone: 6(318)940-484501 [place] [address] 02-17-2025 18:40-0400 Respiratory rate 18 /min Dr. Ramone Smiley MD Work Phone: 3(191)981-233901 [place] [address] 02-17-2025 18:40-0400 SaO2% (BldA) [Mass fraction] 94 % Dr. Ramone Smiley MD Work Phone: 9(339)178-508301 [place] [address] 02-17-2025 18:08-0400 Body temperature 98.9 [degF] Dr. Ramone Smiley MD Work Phone: 6(706)301-183901 [place] [address] 02-17-2025 18:08-0400 Diastolic blood pressure 54 mm[Hg] Dr. Ramone Smiley MD Work Phone: 1(858)450-447053 [address] 02-17-2025 18:08-0400 Systolic blood pressure 137 mm[Hg] Dr. Ramone Smiley MD Work Phone: 5(597)623-504501 [place] [address] 02-17-2025 04:49-0400 Body mass index (BMI) [Ratio] 29.4 kg/m2 Dr. Ramone Smiley MD Work Phone: [facility] 02-17-2025 04:49-0400 Body weight 75.[address] Ramone Smiley MD Work Phone: 2(269)264-722342 [place] [address] 02-15-2025 15:20-0400 Body height 160.[address] Ramone Smiley MD Work Phone: 3(053)683-610842 [place] [address] 02-15-2025 13:54-0400 Body temperature 99.6 [degF] Dr. Ramone Smiley MD Work Phone: 6(335)249-108342 [place] [address] 02-15-2025 13:54-0400 Diastolic blood pressure 53 mm[Hg] Dr. Ramone Smiley MD Work Phone: 1(306)559-751101 [place] [address] 02-15-2025 13:54-0400 Heart rate 98 /min Dr. Ramone Smiley MD Work Phone: 2(920)083-463501 [place] [address] 02-15-2025 13:54-0400 Inhaled oxygen flow rate 3 L/min Dr. Ramone Smiley MD Work Phone: 1(660)121-484501 [place] [address] 02-15-2025 13:54-0400 Respiratory rate 22 /min Dr. Ramone Smiley MD Work Phone: 6(214)395-697101 [place] [address] 02-15-2025 13:54-0400 SaO2% (BldA) [Mass fraction] 98 % Dr. Ramone Smiley MD Work Phone: 4(296)900-188101 [place] [address] 02-15-2025 13:54-0400 Systolic blood pressure 110 mm[Hg] Dr. Ramone Smiley MD Work Phone: 3(490)314-779901 [place] [address] 02-15-2025 08:36-0400 Body height 160.[address] Ramone Smiley MD Work Phone: 4(578)516-063601 [place] [address] 02-15-2025 08:36-0400 Body mass index (BMI) [Ratio] 30.4 kg/m2 Dr. Ramone Smiley MD Work Phone: 9(900)099-932801 [place] [address] 02-15-2025 08:36-0400 Body weight 78.[address] Ramone Smiley MD Work Phone: 4(516)725-473401 [place] [address] 02-13-2025 16:00-0400 Inhaled oxygen flow rate 2 L/min Dr. Ramone Smiley MD Work Phone: 2(595)971-927642 [place] [address] 02-13-2025 14:04-0400 Body temperature 98.4 [degF] Dr. Ramone Smiley MD Work Phone: 5(681)417-800501 [place] [address] 02-13-2025 14:04-0400 Heart rate 94 /min Dr. Ramone Smiley MD Work Phone: 2(901)144-585001 [place] [address] 02-13-2025 14:04-0400 Respiratory rate 20 /min Dr. Ramone Smiley MD Work Phone: 8(925)141-379701 [place] [address] 02-13-2025 14:04-0400 SaO2% (BldA) [Mass fraction] 94 % Dr. Ramone Smiley MD Work Phone: 0(694)519-314001 [place] [address] 02-13-2025 08:41-0400 Diastolic blood pressure 51 mm[Hg] Dr. Ramone Smiley MD Work Phone: 0(480)170-556701 [place] [address] 02-13-2025 08:41-0400 Systolic blood pressure 132 mm[Hg] Dr. Ramone Smiley MD Work Phone: 2(908)866-666201 [place] [address] 02-10-2025 13:27-0400 Body height 160.[address] Ramone Smiley MD Work Phone: 6(226)196-460201 [place] [address] 02-10-2025 13:27-0400 Body weight 76.[address] Ramone Smiley MD Work Phone: 3(469)026-594301 [place] [address] 02-09-2025 16:43-0400 Body mass index (BMI) [Ratio] 29.9 kg/m2 Dr. Ramone Smiley MD Work Phone: 8(996)612-299001 [place] [address] 02-09-2025 15:12-0400 Inhaled oxygen flow rate 2 L/min Dr. Ramone Smiley MD Work Phone: 6(576)108-751201 [place] [address] 02-09-2025 15:12-0400 SaO2% (BldA) [Mass fraction] 91 % Dr. Ramone Smiley MD Work Phone: 4(958)601-965401 [place] [address] 02-09-2025 15:08-0400 Body temperature 99 [degF] Dr. Ramone Smiley MD Work Phone: 9(606)159-815901 [place] [address] 02-09-2025 15:08-0400 Diastolic blood pressure 46 mm[Hg] Dr. Ramone Smiley MD Work Phone: 0(047)520-660642 [place] [address] 02-09-2025 15:08-0400 Heart rate 94 /min Dr. Ramone Smiley MD Work Phone: 3(303)789-327901 [place] [address] 02-09-2025 15:08-0400 Respiratory rate 25 /min Dr. Ramone Smiley MD Work Phone: 8(018)189-852601 [place] [address] 02-09-2025 15:08-0400 Systolic blood pressure 136 mm[Hg] Dr. Ramone Smiley MD Work Phone: 7(779)485-455201 [place] [address] 02-09-2025 11:52-0400 Body height 160.[address] Ramone Smiley MD Work Phone: 9(481)782-306701 [place] [address] 02-09-2025 11:52-0400 Body mass index (BMI) [Ratio] 30.1 kg/m2 Dr. Ramone Smiley MD Work Phone: 8(004)295-248801 [place] [address] 02-09-2025 11:52-0400 Body weight 77.[address] Ramone Smiley MD Work Phone: 7(287)963-416201 [place] [address] 02-06-2025 15:38-0400 Body temperature 97.5 [degF] Dr. Ramone Smiley MD Work Phone: 4(370)563-939201 [place] [address] 02-06-2025 15:38-0400 Diastolic blood pressure 81 mm[Hg] Dr. Ramone Smiley MD Work Phone: 2(597)321-297001 [place] [address] 02-06-2025 15:38-0400 Heart rate 74 /min Dr. Ramone Smiley MD Work Phone: 4(028)797-826401 [place] [address] 02-06-2025 15:38-0400 Respiratory rate 18 /min Dr. Ramone Smiley MD Work Phone: 6(762)027-775801 [place] [address] 02-06-2025 15:38-0400 SaO2% (BldA) [Mass fraction] 93 % Dr. Ramone Smiley MD Work Phone: 8(189)271-123101 [place] [address] 02-06-2025 15:38-0400 Systolic blood pressure 117 mm[Hg] Dr. Ramone Smiley MD Work Phone: [facility] 02-06-2025 07:36-0400 Inhaled oxygen flow rate 2 L/min Dr. Ramone Smiley MD Work Phone: 1(164)821-823742 [place] [address] 02-04-2025 12:34-0400 Body height 160.[address] Ramone Smiley MD Work Phone: 8(297)058-675601 [place] [address] 02-04-2025 12:34-0400 Body mass index (BMI) [Ratio] 27.8 kg/m2 Dr. Ramone Smiley MD Work Phone: 9(640)478-125801 [place] [address] 02-04-2025 12:34-0400 Body weight 71.[address] Ramone Smiley MD Work Phone: 6(540)562-708801 [place] [address] 02-04-2025 11:06-0400 Body temperature 98.6 [degF] Dr. Ramone Smiley MD Work Phone: 8(095)911-730501 [place] [address] 02-04-2025 11:06-0400 Diastolic blood pressure 46 mm[Hg] Dr. Ramone Smiley MD Work Phone: 2(177)436-770401 [place] [address] 02-04-2025 11:06-0400 Heart rate 88 /min Dr. Ramone Smiley MD Work Phone: 0(151)119-847901 [place] [address] 02-04-2025 11:06-0400 Respiratory rate 30 /min Dr. Ramone Smiley MD Work Phone: 5(145)013-613601 [place] [address] 02-04-2025 11:06-0400 SaO2% (BldA) [Mass fraction] 99 % Dr. Ramone Smiley MD Work Phone: 7(948)952-488842 [place] [address] 02-04-2025 11:06-0400 Systolic blood pressure 111 mm[Hg] Dr. Ramone Smiley MD Work Phone: 1(860)671-245501 [place] [address] 02-04-2025 11:00-0400 Inhaled oxygen flow rate 3 L/min Dr. Ramone Smiley MD Work Phone: 8(178)174-406401 [place] [address] 02-04-2025 06:20-0400 Body height 160.[address] Ramone Smiley MD Work Phone: [facility] 02-04-2025 06:20-0400 Body mass index (BMI) [Ratio] 29.9 kg/m2 Dr. Ramone Smiley MD Work Phone: [facility] 02-04-2025 06:20-0400 Body weight 76.[address] Ramone Smiley MD Work Phone: 1(108)539-416642 [place] [address] 01-31-2025 06:28-0400 Body mass index (BMI) [Ratio] 27.4 kg/m2 Dr. Ramone Smiley MD Work Phone: 0(703)899-274753 [address] 01-31-2025 06:28-0400 Body weight 70.[address] Ramone Smiley MD Work Phone: 8(460)041-077001 [place] [address] 01-31-2025 06:28-0400 Diastolic blood pressure 59 mm[Hg] Dr. Ramone Smiley MD Work Phone: 6(570)201-735701 [place] [address] 01-31-2025 06:28-0400 Heart rate 95 /min Dr. Ramone Smiley MD Work Phone: 9(796)470-779653 [address] 01-31-2025 06:28-0400 Respiratory rate 18 /min Dr. Ramone Smiley MD Work Phone: 4(196)432-596101 [place] [address] 01-31-2025 06:28-0400 SaO2% (BldA) [Mass fraction] 95 % Dr. Ramone Smiley MD Work Phone: 7(192)947-003053 [address] 01-31-2025 06:28-0400 Systolic blood pressure 107 mm[Hg] Dr. Ramone Smiley MD Work Phone: [facility] 01-26-2025 05:13-0400 Body temperature 98.3 [degF] Dr. Ramone Smiley MD Work Phone: 8(333)670-318453 [address] 01-26-2025 05:13-0400 Diastolic blood pressure 72 mm[Hg] Dr. Ramone Smiley MD Work Phone: 9(265)264-947353 [address] 01-26-2025 05:13-0400 Heart rate 83 /min Dr. Ramone Smiley MD Work Phone: [facility] 01-26-2025 05:13-0400 Respiratory rate 18 /min Dr. Ramone Smiley MD Work Phone: 0(833)599-487701 [place] [address] 01-26-2025 05:13-0400 SaO2% (BldA) [Mass fraction] 97 % Dr. Ramone Smiley MD Work Phone: 8(314)701-625501 [place] [address] 01-26-2025 05:13-0400 Systolic blood pressure 116 mm[Hg] Dr. Ramone Smiley MD Work Phone: 7(766)056-618201 [place] [address] 01-26-2025 03:02-0400 Body height 160.[address] Ramone Smiley MD Work Phone: 2(681)933-927901 [place] [address] 01-26-2025 03:02-0400 Body mass index (BMI) [Ratio] 31.4 kg/m2 Dr. Ramone Smiley MD Work Phone: 8(020)636-406201 [place] [address] 01-26-2025 03:02-0400 Body weight 80.[address] Ramone Smiley MD Work Phone: 2(197)940-094701 [place] [address] 01-24-2025 13:57-0400 Body temperature 97.4 [degF] Dr. Ramone Smiley MD Work Phone: 6(252)919-849101 [place] [address] 01-24-2025 13:57-0400 Diastolic blood pressure 68 mm[Hg] Dr. Ramone Smiley MD Work Phone: 3(640)097-871601 [place] [address] 01-24-2025 13:57-0400 Heart rate 87 /min Dr. Ramone Smiley MD Work Phone: 2(612)076-548801 [place] [address] 01-24-2025 13:57-0400 Respiratory rate 16 /min Dr. Ramone Smiley MD Work Phone: 2(528)974-656301 [place] [address] 01-24-2025 13:57-0400 SaO2% (BldA) [Mass fraction] 97 % Dr. Ramone Smiley MD Work Phone: 1(797)795-217301 [place] [address] 01-24-2025 13:57-0400 Systolic blood pressure 111 mm[Hg] Dr. Ramone Smiley MD Work Phone: 4(596)366-073701 [place] [address] 01-24-2025 05:23-0400 Body mass index (BMI) [Ratio] 30.7 kg/m2 Dr. Ramone Smiley MD Work Phone: 0(000)604-445642 [place] [address] 01-24-2025 05:23-0400 Body weight 78.[address] Ramone Smiley MD Work Phone: 8(867)588-566301 [place] [address] 01-22-2025 14:00-0400 Inhaled oxygen concentration 24 % Dr. Ramone Smiley MD Work Phone: 8(166)524-296301 [place] [address] 01-22-2025 11:00-0400 Inhaled oxygen flow rate 2 L/min Dr. Ramone Smiley MD Work Phone: 7(543)396-078601 [place] [address] 01-20-2025 10:06-0400 Body height 160.[address] Ramone Smiley MD Work Phone: 6(322)943-638601 [place] [address] 01-15-2025 18:58-0400 Body temperature 97.9 [degF] Dr. Ramone Smiley MD Work Phone: 1(940)804-137401 [place] [address] 01-15-2025 18:58-0400 Diastolic blood pressure 70 mm[Hg] Dr. Ramone Smiley MD Work Phone: 1(445)866-502501 [place] [address] 01-15-2025 18:58-0400 Heart rate 69 /min Dr. Ramone Smiley MD Work Phone: 0(465)632-072701 [place] [address] 01-15-2025 18:58-0400 Respiratory rate 22 /min Dr. Ramone Smiley MD Work Phone: 5(526)905-916701 [place] [address] 01-15-2025 18:58-0400 SaO2% (BldA) [Mass fraction] 98 % Dr. Ramone Smiley MD Work Phone: 4(136)347-856901 [place] [address] 01-15-2025 18:58-0400 Systolic blood pressure 130 mm[Hg] Dr. Ramone Smiley MD Work Phone: 7(721)295-953042 [place] [address] 01-15-2025 14:14-0400 Body height 160.[address] Ramone Smiley MD Work Phone: 2(615)336-427142 [place] [address] 01-15-2025 14:14-0400 Body mass index (BMI) [Ratio] 32.3 kg/m2 Dr. Ramone Smiley MD Work Phone: 6(032)594-444842 [place] [address] 01-15-2025 14:14-0400 Body weight 82.[address] Ramone Smiley MD Work Phone: 0(579)544-832601 [place] [address] 01-07-2025 17:34-0400 Body temperature 97.6 [degF] Dr. Ramone Smiley MD Work Phone: 7(450)085-056401 [place] [address] 01-07-2025 17:34-0400 Diastolic blood pressure 78 mm[Hg] Dr. Ramone Smiley MD Work Phone: 7(044)393-767801 [place] [address] 01-07-2025 17:34-0400 Heart rate 82 /min Dr. Ramone Smiley MD Work Phone: 5(245)166-168001 [place] [address] 01-07-2025 17:34-0400 Respiratory rate 19 /min Dr. Ramone Smiley MD Work Phone: 6(799)333-023701 [place] [address] 01-07-2025 17:34-0400 SaO2% (BldA) [Mass fraction] 97 % Dr. Ramone Smiley MD Work Phone: 5(318)054-704801 [place] [address] 01-07-2025 17:34-0400 Systolic blood pressure 147 mm[Hg] Dr. Ramone Smiley MD Work Phone: 6(924)446-877801 [place] [address] 01-07-2025 14:56-0400 Body height 160.[address] Ramone Smiley MD Work Phone: 0(929)789-108801 [place] [address] 01-07-2025 14:56-0400 Body mass index (BMI) [Ratio] 31.5 kg/m2 Dr. Ramone Smiley MD Work Phone: 3(978)998-107401 [place] [address] 01-07-2025 14:56-0400 Body weight 80.[address] Ramone Smiley MD Work Phone: 6(876)417-002701 [place] [address] 12-30-2023 14:14-0400 Body temperature 98.9 [degF] Dr. Ramone Smiley Work Phone: 4(965)979-656242 [place] [address] 12-30-2023 14:14-0400 Diastolic blood pressure 60 mm[Hg] Dr. Ramone Smiley Work Phone: [facility] 12-30-2023 14:14-0400 Heart rate 80 /min Dr. Ramone Smiley Work Phone: [facility] 12-30-2023 14:14-0400 Respiratory rate 18 /min Dr. Ramone Smiley Work Phone: [facility] 12-30-2023 14:14-0400 SaO2% (BldA) [Mass fraction] 95 % Dr. Ramone Smiley Work Phone: [facility] 12-30-2023 14:14-0400 Systolic blood pressure 131 mm[Hg] Dr. Ramone Smiley Work Phone: [facility] 12-29-2023 07:09-0400 Inhaled oxygen flow rate 2 L/min Dr. Ramone Smiley Work Phone: [facility] 12-28-2023 11:27-0400 Body height 160.[address] Ramone Smiley Work Phone: [facility] 12-28-2023 11:27-0400 Body mass index (BMI) [Ratio] 27.8 kg/m2 Dr. Ramone Smiley Work Phone: [facility] 12-28-2023 11:27-0400 Body weight 71.[address] Ramone Smiley Work Phone: [facility] 12-27-2023 23:42-0400 Body temperature 97.5 [degF] [facility] 12-27-2023 23:42-0400 Diastolic blood pressure 59 mm[Hg] [facility] 12-27-2023 23:42-0400 Heart rate 77 /min [facility] 12-27-2023 23:42-0400 Respiratory rate 20 /min [facility] 12-27-2023 23:42-0400 SaO2% (BldA) [Mass fraction] 97 % [facility] 12-27-2023 23:42-0400 Systolic blood pressure 159 mm[Hg] [facility] 12-27-2023 22:06-0400 Body height 160.02 cm [facility] 12-27-2023 22:06-0400 Body mass index (BMI) [Ratio] 29.5 kg/m2 [facility] 12-27-2023 22:06-0400 Body weight 75.6 kg [facility] 08-17-2023 13:26-0500 Body temperature 97.1 [degF] Dr. aRmone Smiley Work Phone: [facility] 08-17-2023 13:26-0500 Diastolic blood pressure 65 mm[Hg] Dr. Ramone Smiley Work Phone: 4(863)010-338542 [place] [address] 08-17-2023 13:26-0500 Heart rate 84 /min Dr. Ramone Smiley Work Phone: 4(346)720-581942 [place] [address] 08-17-2023 13:26-0500 Respiratory rate 18 /min Dr. Ramone Smiley Work Phone: [facility] 08-17-2023 13:26-0500 SaO2% (BldA) [Mass fraction] 98 % Dr. Ramone Smiley Work Phone: [facility] 08-17-2023 13:26-0500 Systolic blood pressure 140 mm[Hg] Dr. Ramone Smiley Work Phone: [facility] 08-14-2023 13:28-0500 Body height 160.[address] Ramone Smiley Work Phone: [facility] 08-14-2023 13:28-0500 Body weight 60.[address] Ramone Smiley Work Phone: [facility] 08-13-2023 15:22-0500 Body mass index (BMI) [Ratio] 23.4 kg/m2 Dr. Ramone Smiley Work Phone: [facility] 08-13-2023 14:18-0500 Body temperature 98.6 [degF] Dr. Ramone Smiley Work Phone: [facility] 08-13-2023 14:18-0500 Diastolic blood pressure 59 mm[Hg] Dr. Ramone Smiley Work Phone: [facility] 08-13-2023 14:18-0500 Heart rate 107 /min Dr. Ramone Smiley Work Phone: [facility] 08-13-2023 14:18-0500 Respiratory rate 20 /min Dr. Ramone Smiley Work Phone: [facility] 08-13-2023 14:18-0500 SaO2% (BldA) [Mass fraction] 97 % Dr. Ramone Smiley Work Phone: [facility] 08-13-2023 14:18-0500 Systolic blood pressure 152 mm[Hg] Dr. Ramone Smiley Work Phone: [facility] 08-13-2023 10:03-0500 Body height 160.[address] Ramone Smiley Work Phone: [facility] 08-13-2023 10:03-0500 Body mass index (BMI) [Ratio] 24.5 kg/m2 Dr. Ramone Smiley Work Phone: [facility] 08-13-2023 10:03-0500 Body weight [address] Ramone Smiley Work Phone: [facility] 08-07-2023 20:23-0500 Body temperature 97.6 [degF] Dr. Ramone Smiley Work Phone: [facility] 08-07-2023 20:23-0500 Diastolic blood pressure 51 mm[Hg] Dr. Ramone Smiley Work Phone: [facility] 08-07-2023 20:23-0500 Heart rate 87 /min Dr. Ramone Smiley Work Phone: [facility] 08-07-2023 20:23-0500 Respiratory rate 18 /min Dr. Ramone Smiley Work Phone: [facility] 08-07-2023 20:23-0500 SaO2% (BldA) [Mass fraction] 98 % Dr. Ramone Smiley Work Phone: [facility] 08-07-2023 20:23-0500 Systolic blood pressure 115 mm[Hg] Dr. Ramone Smiley Work Phone: [facility] 07-19-2023 01:01-0500 Diastolic blood pressure 61 mm[Hg] Dr. Ramone Smiley Work Phone: [facility] 07-19-2023 01:01-0500 Heart rate 101 /min Dr. Ramone Smiley Work Phone: [facility] 07-19-2023 01:01-0500 Respiratory rate 20 /min Dr. Ramone Smiley Work Phone: 4(795)854-486842 [place] [address] 07-19-2023 01:01-0500 Systolic blood pressure 145 mm[Hg] Dr. Ramone Smiley Work Phone: 0(425)503-306642 [place] [address] 07-18-2023 23:28-0500 Body mass index (BMI) [Ratio] 25.7 kg/m2 Dr. Ramone Smiley Work Phone: [facility] 07-18-2023 23:28-0500 Body weight 65.[address] Ramone Smiley Work Phone: [facility] 07-18-2023 22:47-0500 Body temperature 97.6 [degF] Dr. Ramone Smiley Work Phone: 8(368)554-947042 [place] [address] 07-18-2023 22:47-0500 SaO2% (BldA) [Mass fraction] 96 % Dr. Ramone Smiley Work Phone: [facility] 07-18-2023 22:44-0500 Body height 160.[address] Ramone Smiley Work Phone: [facility] 07-15-2023 13:24-0500 Body temperature 98.2 [degF] Dr. Ramone Smiley Work Phone: [facility] 07-15-2023 13:24-0500 Diastolic blood pressure 74 mm[Hg] Dr. Ramone Smiley Work Phone: [facility] 07-15-2023 13:24-0500 Heart rate 89 /min Dr. Ramone Smiley Work Phone: [facility] 07-15-2023 13:24-0500 SaO2% (BldA) [Mass fraction] 92 % Dr. Ramone Smiley Work Phone: [facility] 07-15-2023 13:24-0500 Systolic blood pressure 122 mm[Hg] Dr. Ramone Smiley Work Phone: [facility] 01-28-2023 16:36-0400 Diastolic blood pressure 63 mm[Hg] [facility] 01-28-2023 16:36-0400 Heart rate 75 /min [facility] 01-28-2023 16:36-0400 Systolic blood pressure 170 mm[Hg] [facility] 01-28-2023 14:54-0400 Body height 160.02 cm [facility] 01-28-2023 14:54-0400 Body mass index (BMI) [Ratio] 26.9 kg/m2 [facility] 01-28-2023 14:54-0400 Body temperature 97.8 [degF] [facility] 01-28-2023 14:54-0400 Body weight 69 kg [facility] 01-28-2023 14:54-0400 Respiratory rate 25 /min [facility] 01-28-2023 14:54-0400 SaO2% (BldA) [Mass fraction] 97 % [facility] 07-14-2022 18:11-0500 Diastolic blood pressure 64 mm[Hg] [facility] Work Phone: 07-14-2022 18:11-0500 Heart rate 73 /min [facility] Work Phone: 07-14-2022 18:11-0500 Respiratory rate 18 /min [facility] Work Phone: 07-14-2022 18:11-0500 SaO2% (BldA) [Mass fraction] 98 % [facility] Work Phone: 07-14-2022 18:11-0500 Systolic blood pressure 174 mm[Hg] [facility] Work Phone: 07-14-2022 11:59-0500 Body height 160.02 cm [facility] Work Phone: 07-14-2022 11:59-0500 Body mass index (BMI) [Ratio] 31.1 kg/m2 [facility] Work Phone: 07-14-2022 11:59-0500 Body temperature 97.2 [degF] [facility] Work Phone: 07-14-2022 11:59-0500 Body weight 79.83 kg [facility] Work Phone: 05-07-2022 13:26-0400 Body height 158.1 cm 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 [employer] RE[employer] Work Phone: [facility] 05-07-2022 13:26-0400 Body temperature 97.2 [degF] [place] Iraheta [employer]ENTIFIC RECRU[employer] C[employer]TER Work Phone: [facility] 05-07-2022 13:26-0400 Body weight 73.71 kg 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 Ramone Smiley Work Phone: [facility] Work Phone: 02-26-2022 09:43-0400 Body mass index (BMI) [Ratio] 28.1 kg/m2 Dr. Ramone Smiley Work Phone: [facility] Work Phone: 02-26-2022 09:43-0400 Body temperature 97.9 [degF] Dr. Ramone Smiley Work Phone: [facility] Work Phone: 02-26-2022 09:43-0400 Body weight 72.[address] Ramone Smiley Work Phone: [facility] Work Phone: 02-26-2022 09:43-0400 Diastolic blood pressure 80 mm[Hg] Dr. Ramone Smiley Work Phone: [facility] Work Phone: 02-26-2022 09:43-0400 Heart rate 70 /min Dr. Ramone Smiley Work Phone: [facility] Work Phone: 02-26-2022 09:43-0400 Respiratory rate 14 /min Dr. Ramone Smiley Work Phone: [facility] Work Phone: 02-26-2022 09:43-0400 SaO2% (BldA) [Mass fraction] 98 % Dr. Ramone Smiley Work Phone: [facility] Work Phone: 02-26-2022 09:43-0400 Systolic blood pressure 134 mm[Hg] Dr. Ramone Smiley Work Phone: [facility] Work Phone: 12-17-2021 13:23-0400 Diastolic blood pressure 60 mm[Hg] Dr. Ramone Smiley Work Phone: [facility] Work Phone: 12-17-2021 13:23-0400 Systolic blood pressure 154 mm[Hg] Dr. Ramone Smiley Work Phone: [facility] Work Phone: 12-10-2021 10:34-0400 Diastolic blood pressure 70 mm[Hg] Dr. Ramone Smiley Work Phone: [facility] Work Phone: 12-10-2021 10:34-0400 Systolic blood pressure 124 mm[Hg] Dr. Ramone Smiley Work Phone: [facility] Work Phone: 12-06-2021 15:22-0400 Body mass index (BMI) [Ratio] 30.2 kg/m2 Dr. Ramone Smiley Work Phone: [facility] Work Phone: 12-06-2021 15:22-0400 Body weight 77.[address] Ramone Smiley Work Phone: [facility] Work Phone: 12-06-2021 15:22-0400 Diastolic blood pressure 84 mm[Hg] Dr. Ramone Smiley Work Phone: [facility] Work Phone: 12-06-2021 15:22-0400 Systolic blood pressure 122 mm[Hg] Dr. Ramone Smiley Work Phone: [facility] Work Phone: 12-06-2021 15:22-0400 Body height 160.[address] Ramone Smiley Work Phone: [facility] Work Phone: 12-06-2021 15:22-0400 Body mass index (BMI) [Ratio] 30.2 kg/m2 Dr. Ramone Smiley Work Phone: [facility] Work Phone: 12-06-2021 15:22-0400 Body weight 77.[address] Ramone Smiley Work Phone: [facility] Work Phone: 12-06-2021 15:22-0400 Diastolic blood pressure 84 mm[Hg] Dr. Ramone Smiley Work Phone: [facility] Work Phone: 12-06-2021 15:22-0400 Systolic blood pressure 122 mm[Hg] Dr. Ramone Smiley Work Phone: [facility] Work Phone: 12-04-2021 11:22-0400 Diastolic blood pressure 70 mm[Hg] Dr. Ramone Smiley Work Phone: [facility] Work Phone: 12-04-2021 11:22-0400 Systolic blood pressure 124 mm[Hg] Dr. Ramone Smiley Work Phone: [facility] Work Phone: 12-04-2021 11:22-0400 Diastolic blood pressure 70 mm[Hg] Dr. Ramone Smiley Work Phone: [facility] Work Phone: 12-04-2021 11:22-0400 Systolic blood pressure 124 mm[Hg] Dr. Ramone Smiley Work Phone: [facility] Work Phone: 12-02-2021 14:03-0400 Diastolic blood pressure 60 mm[Hg] Dr. Ramone Smiley Work Phone: [facility] Work Phone: 12-02-2021 14:03-0400 Systolic blood pressure 138 mm[Hg] Dr. Ramone Smiley Work Phone: [facility] Work Phone: 12-02-2021 14:03-0400 Diastolic blood pressure 60 mm[Hg] Dr. Ramone Smiley Work Phone: [facility] Work Phone: 12-02-2021 14:03-0400 Systolic blood pressure 138 mm[Hg] Dr. Ramone Smiley Work Phone: [facility] Work Phone: 01-13-2017 14:21-0400 BMI (Body Mass Index) 30.93 kg/m2 Zuleika Heaton [facility] Work Phone: 01-13-2017 14:21-0400 Body Temperature 98.2 [degF] Zuleika Heaton [facility] Work Phone: 01-13-2017 14:21-0400 Body weight 79.2 kg Zuleika Heaton [facility] Work Phone: 01-13-2017 14:21-0400 BP Diastolic 76 mm[Hg] Zuleika Heaton [facility] Work Phone: 01-13-2017 14:21-0400 BP Systolic 128 mm[Hg] Zuleika Heaton [facility] Work Phone: 01-13-2017 14:21-0400 Height 160.02 cm Zuleika Heaton [facility] Work Phone: 01-13-2017 14:21-0400 Pulse (Heart Rate) 70 /min Zuleika Heaton [facility] Work Phone: 01-13-2017 14:21-0400 Pulse Oximetry 96 % Zuleika Heaton [facility] Work Phone: 01-13-2017 14:21-0400 Respiratory Rate 16 /min Zuleika Heaton [facility] Work Phone: 01-13-2017 14:21-0400 Weight 79.2 kg Zuleika Heaton [facility] Work Phone: 10-09-2015 11:00-0500 BSA (Body Surface Area) 1.91 m2 Zuleika Heaton [facility] Work Phone: 08-29-2015 11:19-0500 Heart rate 109 /min Zuleika Heaton [facility] Work Phone: Encounters Encounter Date Encounter Type Care Provider Facility Start: 03-09-2025 Whitney SUGGS -[facility] Work Phone: Start: 03-09-2025 ambulatory Ramone Smiley Facility:[facility] Start: 03-07-2025 ambulatory Ramone Smiley Facility:[facility] Start: 03-07-2025 Dr. Se Good MD -[facility] Start: 03-07-2025 End: 03-07-[address] Ramone Smiley MD Work Phone: -Cardiovascular Services Start: 03-07-2025 End: 03-07-2025 Whitney Cao [employer] -[facility] Services Work Phone: Start: 03-07-2025 End: 03-07-2025 ambulatory Ramone Smiley Facility:[facility] Start: 03-04-2025 End: 03-04-2025 Dr. Ramone Smiley MD Work Phone: -Emergency Department Work Phone: Start: 03-04-2025 End: 03-04-2025 Emergency department patient visit Dr. Ramone Smiley MD Work Phone: -Emergency Department Start: 02-18-2025 End: 02-19-2025 Dr. Ramone Smiley MD Work Phone: -Emergency Department Work Phone: Start: 02-18-2025 End: 02-19-2025 Emergency department patient visit Dr. Ramone Smiley MD Work Phone: [facility] Work Phone: Start: 02-17-2025 Dr. Heydi Amaya MD -[facility] Work Phone: Start: 02-16-2025 Dr. Heydi Amaya MD -[facility] Work Phone: Start: 02-15-2025 End: 02-17-2025 ambulatory Nestor Bartlett Facility:[facility] Start: 02-15-2025 End: 02-17-[address] Ramone Smiley MD Work Phone: [facility] Work Phone: Start: 02-15-2025 End: 02-17-2025 Dr. Nestor Bartlett DO -[facility] Work Phone: Start: 02-13-2025 Dr. Lucio Borden [facility] Work Phone: Start: 02-12-2025 Dr. Lucio Borden [facility] Work Phone: Start: 02-11-2025 Dr. Lucio Borden [facility] Work Phone: Start: 02-10-2025 Dr. Lucio Borden DO [facility] Work Phone: Start: 02-09-2025 ambulatory Lucio Multani y:[facility] Start: 02-09-2025 End: 02-13-2025 Evaluation and management of inpatient Dr. Ramone Smiley MD Work Phone: [facility] Work Phone: Start: 02-09-2025 End: 02-13-2025 Tono Patricia [facility] Work Phone: Start: 02-07-2025 End: 02-07-[address] Ramone Smiley MD Work Phone: [facility] Work Phone: Start: 02-07-2025 End: 02-07-2025 Dr. Ramone Smiley MD -[facility] Start: 02-07-2025 End: 02-07-2025 ambulatory Ramone Smiley Facility:[facility] Start: 02-06-2025 Dr. Lucio Borden DO [facility] Work Phone: Start: 02-05-2025 Dr. Lucio Borden [facility] Work Phone: Start: 02-04-2025 Dr. Lucio Borden [facility] Work Phone: Start: 02-04-2025 ambulatory Lucio Multani y:[facility] Start: 02-04-2025 End: 02-06-2025 Evaluation and management of inpatient Dr. Ramone Smiley MD Work Phone: [facility] Work Phone: Start: 02-04-2025 End: 02-06-2025 Dr. Lucio Tereletsky DO -Progressive Care Unit Work Phone: Start: 01-31-2025 End: 01-31-2025 Whitney SUGGS -[facility] Work Phone: Start: 01-31-2025 End: 01-31-[address] Ramone Smiley MD Work Phone: [facility] Work Phone: Start: 01-26-2025 End: 01-26-2025 Dr. Ramone Smiley MD Work Phone: -Emergency Department Work Phone: Start: 01-26-2025 End: 01-26-2025 Emergency department patient visit Dr. Ramone Smiley MD Work Phone: [facility] Work Phone: Start: 01-24-2025 Dr. Melba Hartmann MD - [facility] Work Phone: Start: 01-23-2025 Dr. Becca Silverman MD -[facility] Start: 01-23-2025 Dr. Melba Hartmann MD - [facility] Work Phone: Start: 01-22-2025 Dr. Melba Hartmann MD - [facility] Work Phone: Start: 01-21-2025 Dr. Melba Hartmann MD - [facility] Work Phone: Start: 01-20-2025 ambulatory Ramone Smiley Facility:[facility] Start: 01-20-2025 Dr. Marcelina Soto MD -[facility] Start: 01-20-2025 ambulatory Sandeep Babb ty:[facility] Start: 01-20-2025 End: 01-24-2025 Evaluation and management of inpatient Dr. Ramone Smiley MD Work Phone: [facility] Work Phone: Start: 01-20-2025 End: 01-24-2025 Dr. Melba Hartmann MD -Progressive Care Unit Work Phone: Start: 01-19-2025 End: 01-19-[address] Ramone Smiley MD Work Phone: [facility] Work Phone: Start: 01-19-2025 End: 01-19-2025 Dr. Ramone Smiley MD -Laboratory [facility] Start: 01-19-2025 End: 01-19-2025 ambulatory [facility] Facility:[facility] Start: 01-15-2025 End: 01-15-2025 Dr. Jeevan [...] Work Phone: Start: 11-21-2024 ambulatory Ramone Smiley Facility:[facility] Start: 11-21-[address] Ramone Smiley MD -Physical Therapy Work Phone: Start: 11-21-2024 Dr. Ramone Smiley MD -Phys ical Therapy Work Phone: Start: 09-27-2024 End: 09-27-[address] Ramone Smiley MD -Laboratory, [facility] Start: 09-27-2024 End: 09-27-2024 Dr. Ramone Smiley MD -Laboratory [facility] Start: 09-27-2024 End: 09-27-2024 ambulatory Ramone Smiley Facility:[facility] Start: 07-19-2024 End: 07-19-2024 ambulatory [facility] Facility:[facility] Start: 06-19-2024 End: 06-20-2024 Emergency department patient visit Billy Kothari Facility:[facility] Start: 05-30-2024 End: 05-30-2024 Emergency department patient visit Ramone Smiley Facility:[facility] Start: 05-18-2024 End: 05-18-2024 ambulatory Jason BHATTI Facility:[facility] Start: 04-18-2024 End: 04-18-2024 ambulatory Ramone Smiley Facility:[facility] Start: 03-25-2024 End: 03-25-2024 ambulatory Ramone Smiley Facility:[facility] Start: 12-30-2023 Non-patient / Non-visit Dr. Richar Smiley Work Phone: [facility] Work Phone: Start: 12-29-2023 Non-patient / Non-visit Dr. Richar Smiley Work Phone: [facility] Work Phone: Start: 12-28-2023 Non-patient / Non-visit Dr. Richar Smiley Work Phone: [facility] Work Phone: Start: 12-27-2023 End: 12-30-2023 Evaluation and management of inpatient [facility]-Medical Surgical 3 Work Phone: Start: 10-26-2023 End: 10-26-[address] Ramone Smiley Work Phone: [facility] Work Phone: Start: 10-26-2023 End: 10-26-[address] Ramone Smiley Work Phone: [facility] Start: 08-17-2023 Non-patient / Non-visit Dr. Richar Smiley Work Phone: [facility] Work Phone: Start: 08-16-2023 Non-patient / Non-visit Dr. Richar Smiley Work Phone: [facility] Work Phone: Start: 08-15-2023 Non-patient / Non-visit Dr. Richar Smiley Work Phone: [facility] Work Phone: Start: 08-14-2023 Non-patient / Non-visit Dr. Richar Smiley Work Phone: [facility] Work Phone: Start: 08-13-2023 End: 08-17-2023 Evaluation and management of inpatient Dr. Ramone Smiley Work Phone: [facility]-Progressive Care Unit Work Phone: Start: 08-07-2023 End: 08-07-2023 Emergency department patient visit Dr. Ramone Smiley Work Phone: [facility]-Emergency Department Work Phone: Start: 07-18-2023 End: 07-19-2023 Emergency department patient visit Dr. Ramone Smiley Work Phone: [facility]-Emergency Department Work Phone: Start: 07-15-2023 End: 07-15-[address] Ramone Smiley Work Phone: [facility] Work Phone: Start: 06-01-2023 End: 06-01-[address] [facility] Work [facility]: Start: 05-27-2023 End: 05-27-[address] [facility] [place] Work Phone: Start: 05-15-2023 End: 05-15-[address] Ramone Smiley Work Phone: [facility]-Radiology, [place] Work Phone: Start: 03-24-2023 End: 03-24-2023 ambulatory [facility] Work Phone: Start: 03-24-2023 End: 03-24-2023 Patient encounter procedure [facility]-Ultrasound, [facility] Work Phone: Start: 02-05-2023 End: 02-05-2023 ambulatory [facility] Work Phone: Start: 02-05-2023 End: 02-05-2023 Patient encounter procedure [facility]-Ultrasound, [facility] Start: 01-28-2023 End: 01-28-2023 Emergency department patient visit [facility]-Emergency Department Start: 01-28-2023 End: 01-28-2023 ambulatory [facility] Work Phone: Start: 01-28-2023 End: 01-28-2023 Patient encounter procedure [facility] Start: 12-09-2022 End: 12-09-2022 ambulatory [facility] Work Phone: Start: 12-09-2022 End: 12-09-2022 Patient encounter procedure [facility] Start: 08-13-2022 End: 08-13-2022 ambulatory [facility] Work Phone: Start: 08-13-2022 End: 08-13-2022 Patient encounter procedure [facility]-Outpatient Breast Imaging Start: 07-14-2022 End: 07-14-2022 Emergency department patient visit [facility]-Emergency Department Start: 05-07-2022 End: 05-07-2022 ambulatory Lashondayumi Iraheta APRN.FOOT CUTTER Work Phone: Hematology/Oncology Comment on above: Iron deficiency anem ia due to chronic blood loss (Primary Dx) Start: 05-07-2022 End: 05-07-2022 Patient encounter procedure 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 APRN.FOOT CUTTER Work Phone: [facility] Start: 02-27-2022 End: 02-27-[address] Ramone Smiley Work Phone: [facility] Start: 02-26-2022 End: 02-26-[address] Ramone Smiley Work Phone: [facility] Start: 02-10-2022 Telephone encounter Joseph sanders DO Work Phone: Hematology/Oncology Comment on above: Results (CBC and iro n levels) Start: 01-31-2022 Orders Only Joseph Lim Work Phone: Hematology/Oncology Comment on above: Iron deficiency anem ia due to chronic blood loss (Primary Dx) Start: 12-17-2021 End: 12-17-[address] Ramone Smiley Work Phone: [facility] Start: 12-10-2021 End: 12-10-[address] Ramone Smiley Work Phone: [facility] Start: 12-06-2021 End: 12-06-[address] Ramone Smiley Work Phone: [facility] Start: 12-04-2021 End: 12-04-[address] Ramone Smiley Work Phone: [facility] Start: 12-02-2021 End: 12-02-[address] Ramone Smiley Work Phone: [facility]-Laboratory, Specimen Start: 12-02-2021 End: 12-02-[address] Ramone Smiley Work Phone: [facility] Start: 09-29-2021 Telephone encounter Joseph sanders DO Work Phone: Hematology/Oncology Comment on above: Results; Follow Up Start: 09-13-2021 End: 09-13-[address] Ramone Smiley Work Phone: [facility]-Nuclear Medicine, [facility] Start: 08-21-[address] Ramone Smiley Work Phone: [facility]-Outpatient Breast Imaging Start: 08-12-2021 End: 08-12-[address] Ramone Smiley Work Phone: [facility] Start: 03-14-2021 Telephone encounter Joseph Lott marilyn RAYMUNDO Work Phone: Hematology/Oncology Comment on above: Results Start: 01-18-2018 Ambulatory LEE ALAMO [facility] Procedures Date Procedure Procedure Detail [...] MD Work Phone: Start: 01-07-2025 Dr. Ramone butcehr MD Work Phone: Start: 09-27-2024 Albumin/Globulin ratio [...] Se Good MD Start: 08-29-2015 End: 08-29-2015 DUPLIGRAPH OPERATOR Se Good MD Start: 08-29-2015 End: [...] stres s test using pharmacologic stress agent [facility] Start: 03-07-2025 NM Heart Views W str ess and W radionuclide IV [facility] Start: 03-04-2025 [facility] Start: 03-04-2025 End: 03-04-2025 [facility] Start: 03-04-2025 Blood culture [facility] Start: 02-19-2025 [facility] Start: 02-18-2025 [facility] Start: 02-17-2025 Patient discharge [facility] Start: 02-17-2025 [facility] Start: 02-16-2025 End: 02-16-2025 [facility] Start: 02-15-2025 [facility] Start: 02-15-2025 Following clinical pathway protocol [facility] Start: 02-15-2025 Ambulation without limitation [facility] Start: 02-15-2025 Assessment of risk o f venous thromboembolism [facility] Start: 02-15-2025 Care regimes management [facility] Start: 02-15-2025 Insertion of cathete r into peripheral vein [facility] Start: 02-15-2025 Notification of physician [facility] Start: 02-15-2025 Oxygen therapy [facility] Start: 02-15-2025 Providing care accor ding to standard [facility] Start: 02-15-2025 Referral to occupati onal therapist [facility] Start: 02-15-2025 Referral [facility] service [facility] Start: 02-15-2025 [facility] Start: 02-15-2025 Verification routine [facility] Start: 02-15-2025 Admission procedure [facility] Start: 02-15-2025 Hospital admission, emergency, from emergency room, medical nature [facility] Start: 02-15-2025 [facility] Start: 02-15-2025 End: 02-15-2025 [facility] Start: 02-15-2025 Inhalation therapy procedure [facility] Start: 02-13-2025 Patient discharge [facility] Start: 02-11-2025 Inhalation therapy procedure [facility] Start: 02-10-2025 [facility] Start: 02-10-2025 Referral to service [facility] Start: 02-09-2025 Care regimes management [facility] Start: 02-09-2025 Notification of physician [facility] Start: 02-09-2025 [facility] Start: 02-09-2025 Following clinical pathway protocol [facility] Start: 02-09-2025 Ambulation without limitation [facility] Start: 02-09-2025 Assessment of risk o f venous thromboembolism [facility] Start: 02-09-2025 Catheterization of vein [facility] Start: 02-09-2025 Insertion of cathete r into peripheral vein [facility] Start: 02-09-2025 Oxygen therapy [facility] Start: 02-09-2025 Providing care accor ding to [facility] Start: 02-09-2025 Referral to occupati onal therapist [facility] Start: 02-09-2025 Referral to service [facility] Start: 02-09-2025 [facility] Start: 02-09-2025 Verification routine [facility] Start: 02-09-2025 Admission procedure [facility] Start: 02-09-2025 Hospital admission, emergency, from emergency room, medical nature [facility] Start: 02-09-2025 [facility] Start: 02-09-2025 Patient referral to dietitian [facility] Start: 02-06-2025 Patient discharge [facility] Start: 02-06-2025 Referral to service [facility] Start: 02-05-2025 [facility] Start: 02-04-2025 End: 02-04-2025 [facility] Start: 02-04-2025 Care regimes management [facility] Start: 02-04-2025 Notification of physician [facility] Start: 02-04-2025 Following clinical pathway protocol [facility] Start: 02-04-2025 Care planning and pr oblem solving actions [facility] Start: 02-04-2025 Ambulation without limitation [facility] Start: 02-04-2025 Assessment of risk o f venous thromboembolism [facility] Start: 02-04-2025 Catheterization of vein [facility] Start: 02-04-2025 Inhalation therapy procedure [facility] Start: 02-04-2025 Insertion of cathete r into peripheral vein [facility] Start: 02-04-2025 Oxygen therapy [facility] Start: 02-04-2025 Providing care accor ding to standard [facility] Start: 02-04-2025 [facility] Start: 02-04-2025 Hospital admission, emergency, from emergency room, medical nature [facility] Start: 02-04-2025 Verification routine [facility] Start: 02-04-2025 Admission procedure [facility] Start: 02-04-2025 [facility] Start: 02-04-2025 [facility] Start: 01-26-2025 [facility] Start: 01-24-2025 Referral to service [facility] Start: 01-24-2025 Patient discharge [facility] Start: 01-21-2025 [facility] Start: 01-21-2025 Referral to crop grain or livestock farm manager [facility] Start: 01-20-2025 Oxygen therapy [facility] Start: 01-20-2025 Blood culture [facility] Start: 01-20-2025 Notification of physician [facility] Start: 01-20-2025 [facility] Start: 01-20-2025 End: 01-20-2025 [facility] Start: 01-20-2025 Application of intermittent pneumatic compression device [facility] Start: 01-20-2025 Following clinical pathway protocol [facility] Start: 01-20-2025 Cardiac monitoring [facility] Start: 01-20-2025 Catheterization of vein [facility] Start: 01-20-2025 Notification of physician [facility] Start: 01-20-2025 Vital signs measurements [facility] Start: 01-20-2025 Admission procedure [facility] Start: 01-20-2025 End: 01-20-2025 [facility] Start: 01-20-2025 Care regimes management [facility] Start: 01-20-2025 Inhalation therapy procedure [facility] Start: 01-20-2025 Patient referral to dietitian [facility] Start: 01-15-2025 [facility] Start: 01-15-2025 [facility] Start: 01-07-2025 [facility] Start: 12-30-2023 Patient discharge [facility] Start: 12-30-2023 Inhalation therapy procedure [facility] Start: 12-28-2023 Application of intermittent pneumatic compression device [facility] Start: 12-28-2023 Provision of overbed trapeze [facility] Start: 12-28-2023 Recommendation to continue with treatment [facility] Start: 12-28-2023 Ambulation therapy management [facility] Start: 12-28-2023 Application of device [facility] Start: 12-28-2023 Assessment of risk o f venous thromboembolism [facility] Start: 12-28-2023 Catheterization of vein [facility] Start: 12-28-2023 Exercises [facility] Start: 12-28-2023 Following clinical pathway protocol [facility] Start: 12-28-2023 Introduction of urin david catheter [facility] Start: 12-28-2023 Measuring intake and output [facility] Start: 12-28-2023 Neurovascular assessment [facility] Start: 12-28-2023 Patient education [facility] Start: 12-28-2023 Procedure discontinued [facility] Start: 12-28-2023 Provision of activit y privileges [facility] Start: 12-28-2023 Referral to occupati onal therapist [facility] Start: 12-28-2023 Referral to service [facility] Start: 12-28-2023 Vital signs measurements [facility] Start: 12-28-2023 Wound care [facility] Start: 12-28-2023 [facility] Start: 12-28-2023 Blood chemistry [facility] Start: 12-28-2023 Complete blood count [facility] Start: 12-28-2023 Following clinical pathway protocol [facility] Start: 12-28-2023 Assessment of risk o f venous thromboembolism [facility] Start: 12-28-2023 Care regimes management [facility] Start: 12-28-2023 Consultation [facility] Start: 12-28-2023 Incentive spirometry [facility] Start: 12-28-2023 Insertion of cathete r into peripheral vein [facility] Start: 12-28-2023 Notification of physician [facility] Start: 12-28-2023 Oxygen therapy [facility] Start: 12-28-2023 Providing care accor ding to [facility] Start: 12-28-2023 Provision of activit y privileges [facility] Start: 12-28-2023 Referral to occupati onal therapist [facility] Start: 12-28-2023 Referral [facility] service [facility] Start: 12-28-2023 [facility] Start: 12-27-2023 Verification routine [facility] Start: 12-27-2023 Admission procedure [facility] Start: 08-17-2023 Referral to service [facility] Start: 08-17-2023 Patient discharge [facility] Start: 08-16-2023 [facility] Start: 08-13-2023 Following clinical pathway protocol [facility] Start: 08-13-2023 Assessment of risk o f venous thromboembolism [facility] Start: 08-13-2023 Care regimes management [facility] Start: 08-13-2023 Insertion of cathete r into peripheral vein [facility] Start: 08-13-2023 Measuring intake and output [facility] Start: 08-13-2023 Notification of physician [facility] Start: 08-13-2023 Providing care accor ding to [facility] Start: 08-13-2023 Provision of activit y privileges [facility] Start: 08-13-2023 Referral to occupati onal therapist [facility] Start: 08-13-2023 Referral [facility] service [facility] Start: 08-13-2023 [facility] Start: 08-13-2023 Admission procedure [facility] Start: 08-13-2023 Verification routine [facility] Start: 08-13-2023 Bacteria identified in Blood by Culture Blood Culture [facility] Start: 08-13-2023 Bacteria identified in Urine by Culture Urine Culture [facility] Start: 08-13-2023 Hospital admission, emergency, from emergency room, medical nature [facility] Start: 08-13-2023 [facility] Start: 08-13-2023 End: 08-13-2023 Blood culture [facility] Start: 08-13-2023 Inhalation therapy procedure [facility] Start: 08-13-2023 Patient referral to dietitian [facility] Start: 08-07-2023 [facility] Start: 07-19-2023 End: 07-19-2023 [facility] Start: 07-18-2023 Measurement of occul t blood in stool specimen using immunoassay [facility] Start: 07-18-2023 Bacteria identified in Urine by Culture Urine Culture [facility] Start: 05-07-2022 BP CONTROLLED (<130/80) BP CONTROLLE D (<130/80) [facility] Start: 05-01-2022 Influenza vaccination [facility] Start: 03-28-2022 COVID-19 VACCINE (4 - Booster for Moderna series) COVID-19 VACCINE (4 - Booster for Moderna series) [facility] Start: 09-29-2021 End: 09-29-2022 MONOCLONAL PROTEIN, SERUM (BLOOD) MONOCLONAL PROTEIN, SERUM (BLOOD) Lab Routine Anemia, unspecified type Expected: 09/29/2021, Expires: 09/29/2022 [facility] Work Phone: Comment on above: Expected: 09/29/2021 , Expires: 09/29/2022 Start: 09-29-2021 End: 09-29-2022 PROTEIN ELECTROPHORESIS SERUM W/INTERP PROTEIN ELECTROPHORESIS SERUM W/INTERP Lab Routine Anemia, unspecified type Expected: 09/29/2021, Expires: 09/29/2022 [facility] Work Phone: Comment on above: Expected: 09/29/2021 , Expires: 09/29/2022 Start: 08-31-2021 ADVANCE DIRECTIVE DISCUSSION ADVANCE DIRECTIVE DISCUSSION [facility] Start: 05-16-2021 COVID-19 VACCINE (3 - Booster for Moderna series) COVID-19 VACCINE (3 - Booster for Moderna series) [facility] Start: 05-04-2018 Urine microalbumin profile DTAP,TDAP,TD (2 - Td or Tdap) [facility] Start: 08-16-2016 3 comp foot exam completed DIABETIC FOOT EXAM [facility] Start: 10-09-2015 End: 04-02-2016 Follow Up Appt 6 months Follow Up Appt 6 months [facility] t[facility] Surgery Work Phone: Start: 10-09-2015 End: 04-02-2016 MMM MMM [facility] Work Phone: Start: 08-29-2015 End: 08-29-2015 DUPLIGRAPH OPERATOR DUPLIGRAPH OPERATOR [facility] Work Phone: Start: 08-29-2015 End: 08-29-2015 Electrocardiogram, complete EKG (In office) [facility] Work Phone: Start: 08-29-2015 End: 08-29-2015 Follow Up Appt 6 weeks Follow Up Appt 6 weeks [facility] Work Phone: Start: 07-01-2014 Hemoglobin A1c/Hemoglobin.total in Blood HBA1C [facility] Start: 06-25-2014 Hepatitis B surface antibody level LDL CHOLESTEROL [facility] Start: 06-17-2014 Hepatitis C antibody , confirmatory test DILATED RETINAL EXAM [facility] Start: 02-12-2013 PNEUMOCOCCAL: 65+ (2 - PCV) PNEUMOCOCCAL: 65+ (2 - PCV) [facility] Start: 02-12-2013 PNEUMOCOCCAL: 65+ (3 - PCV) PNEUMOCOCCAL: 65+ (3 - PCV) [facility] Start: 02-18-2012 SHINGRIX VACCINE (1 of 2) MORENO GRIX VACCINE (1 of 2) [facility] Start: 02-18-2012 SHINGRIX VACCINE (2 of 3) MORENO GRIX VACCINE (2 of 3) [facility] Start: 01-02-1962 ANNUAL PCP TEAM PROGRAM ELIGIBILITY SPECIALIST ERIS DISEASE VISIT ANNUAL PCP TEAM CHRONIC DISEASE VISIT [facility] Start: 01-02-1962 BP CONTROLLED (<130/80) BP CONTROLLE D (<130/80) [facility] Start: 01-02-1962 HEPATITIS C SCREENING HEPATITIS C SC REENING [facility] Start: 1956 Adult depression screening assessment DEPRESSION SCREENING [facility] Anion gap measurement [facility] Bacteria identified in Sputum by Respiratory culture [facility] BUN/Creatinine ratio [facility] Calcium [Mass/volume ] in Serum or Plasma [facility] Carbon dioxide, tota l [Moles/volume] in Serum or Plasma [facility] End: 01-31-2023 CBC W Auto Differential panel - Blood CBC + DIFF Lab STAT Iron deficiency anemia due to chronic blood loss Every 3 months for 4 Occurrences starting 01/31/2022 until 01/31/2023 [facility] Work Phone: Comment on above: Every 3 months for 4 Occurrences starting 01/31/2022 until 01/31/2023 End: 09-29-2022 CBC W Auto Differential panel - Blood CBC + DIFF Lab Routine Anemia, unspecified type 1 Occurrences starting 09/29/2021 until 09/29/2022 [facility] Work Phone: Comment on above: 1 Occurrences starti ng 09/29/2021 until 09/29/2022 Chloride [Moles/volu me] in Serum or Plasma [facility] End: 09-29-2022 Comprehensive metabolic 2000 panel - Serum or Plasma COMP METABOLIC PANEL Lab Routine Anemia, unspecified type 1 Occurrences starting 09/29/2021 until 09/29/2022 [facility] Work Phone: Comment on above: 1 Occurrences starti ng 09/29/2021 until 09/29/2022 Creatinine [Moles/vo lume] in Serum or Plasma [facility] Erythrocyte mean corpuscular volume determination [facility] End: 01-31-2023 FERRITIN BLD FERRITIN BLD Lab Routine Iron deficiency anemia due to chronic blood loss Every 3 months for 4 Occurrences starting 01/31/2022 until 01/31/2023 [facility] Work Phone: Comment on above: Every 3 months for 4 Occurrences starting 01/31/2022 until 01/31/2023 Glucose [Mass/volume ] in Serum or Plasma [facility] Hematocrit [Volume Fraction] of Blood [facility] Hemoglobin [Mass/vol ume] in Blood [facility] Hemoglobin A1c/Hemoglobin.total in Blood [facility] End: 01-31-2023 IRON + TIBC IRON + TIBC Lab Routine Iron deficiency anemia due to chronic blood loss Every 3 months for 4 Occurrences starting 01/31/2022 until 01/31/2023 [facility] Work Phone: Comment on above: Every 3 months for 4 Occurrences starting 01/31/2022 until 01/31/2023 Leukocytes [#/volume ] in Blood [facility] Mean corpuscular hemoglobin concentration determination [facility] Mean corpuscular hemoglobin determination [facility] Measurement of renal function [facility] Microorganism identi fied in Unspecified specimen by Culture [facility] Microscopic observat ion [Identifier] in Unspecified specimen by Gram stain [facility] NM Heart Views W str ess and W radionuclide IV [facility] Patient Education [facility] Work Phone: Patient referral [facility] Work Phone: Platelets [#/volume] in Blood [facility] Potassium [Moles/vol ume] in Serum or Plasma [facility] Procalcitonin [Mass/volume] in Serum or Plasma by Immunoassay [facility] Red blood cell count [facility] Red cell distributio n width determination [facility] Sodium [Moles/volume ] in Serum or Plasma [facility] Troponin T.cardiac [Mass/volume] in Serum or Plasma by High sensitivity method [facility] Troponin T.cardiac [Mass/volume] in Serum or Plasma by High sensitivity method [facility] Urea nitrogen [Mass/volume] in Serum or Plasma [facility] Urine culture [facility] US Heart limited [facility] Immunizations Immunization Date Immunization Notes Care Provider Larissa mixon 07-03-2022 influenza, injectabl e, quadrivalent, preservative free Dr. Ramone Smiley MD Work Phone: [facility] 11-26-2021 Covid (Moderna) Dr. Ramone leon MD Work Phone: [facility] 08-22-2015 pneumococcal conjuga te vaccine, [address] Ramone Smiley MD Work Phone: [facility] 07-12-2012 influenza virus vacc ine, unspecified formulation Joseph Rolle DO Work Phone: [facility] 02-13-2012 pneumococcal polysaccharide vaccine, 23 valent Joseph Rolle DO Work Phone: [facility] 12-24-2011 zoster vaccine, live Joseph Chen chatterjee DO Work Phone: [facility] 06-02-2011 influenza virus vacc ine, unspecified formulation Joseph Rolle DO Work Phone: [facility] 08-09-2010 influenza virus vacc jcarlos, unspecified formulation Joseph Rolle DO Work Phone: [facility] 05-30-2009 influenza virus vacc ine, unspecified formulation Joseph Rolle DO Work Phone: [facility] 09-07-2008 influenza virus vacc ine, unspecified formulation Joseph Rolle DO Work Phone: [facility] Work Phone: 05-04-2008 tetanus toxoid, redu octavio diphtheria toxoid, and acellular pertussis vaccine, adsorbed Joseph Rolle DO Work Phone: [facility] Work Phone: 06-28-2007 influenza virus vacc jcarlos, unspecified formulation Joseph Rolle DO Work Phone: [facility] Work Phone: 08-31-2005 pneumococcal polysaccharide vaccine, 23 valent Joseph Rolle DO Work Phone: [facility] Work Phone: Payers Date Payer Category Payer Self-pay [id number] 2017 Medicare HUMANA MEDICARE HUMANA MEDICARE PPO [id number] 2017-Present [phone] [place] [address] PPO [id number] 2017 Medicare HUMANA MEDICARE HUMANA MEDICARE PPO [id number] 2017-Present [phone] [place], [place] [id number] PPO [id number] 2016 Medicare [id number] Private Health Insurance Unknown [id number] 2.16.840.1.317821.3.579. 2.462 Unknown [id number] 2.840.1.850776.3.579. 2.462 Unknown [id number] 2.16840.1.685415.3.579. 2.462 Unknown [id number] 2.840.1.470637.3.579. 2.462 Unknown [id number] 2.840.1.173455.3.579. 2.462 Unknown [id number] 2.840.1.532235.3.579. 2.462 Unknown [id number] 2.840.1.803361.3.579. 2.462 Unknown [id number] 2.840.1.483972.3.579. 2.462 Unknown [id number] 2.840.1.690017.3.579. 2.462 Unknown [id number] 2.840.1.395118.3.579. 2.462 Unknown [id number] 2.840.1.202174.3.579. 2.462 Unknown [id number] 2.840.1.649426.3.579. 2.462 Unknown [id number] 2.840.1.230662.3.579. 2.462 Unknown [id number] 2.840.1.489324.3.579. 2.462 Unknown [id number] 2.840.1.845727.3.579. 2.462 Unknown [id number] 2.840.1.279011.3.579. 2.462 Unknown [id number] 2.840.1.870491.3.579. 2.462 Unknown [id number] 2.840.1.247815.3.579. 2.462 Unknown [id number] 2.840.1.093309.3.579. 2.462 Unknown [id number] 2.840.1.799733.3.579. 2.462 Unknown [id number] 2.840.1.710276.3.579. 2.462 Unknown [id number] 2.840.1.615960.3.579. 2.462 Unknown [id number] 2.840.1.699570.3.579. 2.462 Unknown [id number] 2.840.1.229876.3.579. 2.462 Unknown [id number] 2.840.1.820865.3.579. 2.462 Unknown [id number] 2.840.1.197325.3.579. 2.462 Unknown [id number] 2.840.1.339812.3.579. 2.462 Unknown [id number] 2.840.1.591694.3.579. 2.462 Unknown [id number] 2.840.1.006459.3.579. 2.462 Unknown [id number] 2.840.1.950826.3.579. 2.462 Unknown [id number] 2.840.1.264637.3.579. 2.462 Unknown [id number] 2.840.1.836145.3.579. 2.462 Unknown [id number] 2.840.1.207659.3.579. 2.462 Unknown [id number] .840.1.322693.3.579. 2.462 Unknown [id number] 2.840.1.538904.3.579. 2.462 Unknown [id number] 2.840.1.961604.3.579. 2.462 Unknown [id number] 2.840.1.949252.3.579. 2.462 Unknown [id number] 2.16.840.1.174979.3.579. 2.462 Unknown [id number] 2.16.840.1.135626.3.579. 2.462 Unknown [id number] 2.16.840.1.647556.3.579. 2.462 Unknown [id number] 2..840.1.161728.3.579. 2.462 Social History Date Type Detail Facility Start: 12-06-2021 End: 08-13-2023 Tobacco smoking status [facility] Unknown if ever smoked [facility] Start: 12-02-2019 None [facility] Start: 12-02-2019 Spouse/ Signif icant Other [facility] Start: 07-06-2020 Non-smoker [facility] Start: 1945 Sex Assigned At Female W [facility] Start: 02-03-2012 End: 03-04-2025 Tobacco smoking status CTIS Ex-smoker [facility] End: 01-30-2012 History of tobacco use Current smoker [facility] End: 01-30-2012 History of tobacco use Cigarette Smoker [facility] Start: 02-03-2012 End: 03-22-2012 Cigarettes smoked current (pack per day) - Reported 0.5 [facility] Start: 02-03-2012 End: 03-22-2012 Tobacco use and exposure Smokeless tobacco non-user [facility] Start: 05-07-2021 End: 05-07-2022 Alcohol intake Current non-drinker of alcohol (finding) [facility] Start: 1945 Sex Assigned At Not on file [facility] Start: 10-05-2021 End: 11-04-2021 Exposure to SARS-CoV-2 (event) Not sure [facility] NEGATED: Highlighted row [facility] Medical Equipment Procedure Code Equipment Code Equipment Origin al Text Equipment Identifier Dates 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 Start: 12-28-2023 Primary uncemented hemiarthroplasty of hip unitrax neck adjustment sleeve FDA Start: 12-28-2023 Primary uncemented hemiarthroplasty of hip ([id number]) ()[id number] FDA Start: 12-28-2023 Primary uncemented hemiarthroplasty of [...] Result Facility 02-17-2025 Functional status Chair Jaquelin [facility] Work Phone: 02-16-2025 Functional status Well [place] [facility] Work Phone: 02-13-2025 Functional status Chair [facility] Work Phone: 02-06-2025 Functional status Chair [facility] Work Phone: 01-24-2025 Functional status Ambulates [facility] Work Phone: 01-23-2025 Functional status Fair [facility] Work Phone: 12-30-2023 Functional status Bedrest [facility] Work Phone: 08-17-2023 Functional status Ambulates [facility] Work Phone: Mental Status Date Assessment Result Facility 02-17-2025 Cognitive function Voice/Name [facility] Work Phone: 02-13-2025 Cognitive function Voice/Name [facility] Work Phone: 02-06-2025 Cognitive function Voice/Name [facility] Work Phone: 01-24-2025 Cognitive function Voice/Name [facility] Work Phone: 12-30-2023 Cognitive function Voice/Name [facility] Work Phone: 08-17-2023 Cognitive function Voice/Name [facility] Work Phone: 08-13-2023 Cognitive function Level Of Cons ciousness Awake;Alert;Appropriate;Follow s Commands [facility] Work Phone: 01-28-2023 Cognitive function Level Of Cons ciousness Awake;Alert;Appropriate;Follow s Commands [facility] Work Phone: Clinical Notes 03-14-2021 to 03-04-2025 Note Date & Type Note Facility 03-04-2025 Radiology Diagnostic study note [facility] 03-04-2025 Discharge summary Note Date/Time March 04, 2025 11:14pm [facility] Medical Records Department [address] [place] [address] Emergency Department Summary 03/04/25 MR#: [id number] Acct: [id number] Name: OLGA DONALDSON Rep #:[id number] : 1945 80 From: Jeevan Yoder DO [...] Patient denies any history of kidney stones. [facility] Medical History History of diabetes mellitus [...] mg tablet 25 mg PO BID BLOOD [facility] 08/16/18 01/15/25 History pantoprazole 40 mg [...] 01/15/25 01/15/25 History 0.005 % eye drops (Mertzonlatan) psyllium husk 0.4 gram capsule 0.4 g [...] following commands knew that she was at [facility] year is 2024 Skin: Warm, dry, [...] % (Auto) 66.1 Lymph % (Auto) 24.2 [place] % (Auto) 6.9 Eos % (Auto) 1.7 [...] Clarity Cloudy Urine pH 7.0 Ur Specific [place] 1.010 Urine Protein 100 H Urine Glucose [...] aspiration pneumonia. 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 Reading Location: [place] [address] Discharge Plan Triage Chief Complaint: Serna C/O [...] other concerns or worsening symptoms Print Language: Turkish Disposition Disposition: Home, Self Care What to do if you have Problems For any increased pain, shortness of breath, bleeding, nausea or vomiting, chestpain, or any unexpected problems, contact your Primary Care Provider. Call [facility] ([phone]) or report to the closest Emergency Room. Call 911 if necessary. 03/04/25 7310 <Electronically signed by Jeevan Yoder DO> Cosigner Signature (if applicable): CC: Dr. Ramone Smiley MD ~ Signed [facility] Work Phone: 1(411) 595-839306-21-2025 Radiology Diagnostic study [facility]06-21-2025 Discharge summary Author Billy Kothari [facility] Note Date/Time February 19, 2025 12:0 5am [facility] Medical Records Department [address] [place] [address] Emergency Department Summary 02/18/25 MR#: [id number] Acct: [id number] Name: OLGA DONALDSON Rep #:[id number] : 1945 80 From: Billy Kothari MD PCP: Dr. Ramone Smiley MD Status:REG ER Location: ED HPI History of Present Illness Chief Complaint: Shortness of Breath Narrative Narrative: 80-year-old female past medical history of COPD, wears 2 to 3 L of oxygen, presents from retirement facility with increasing shortness of breath. Sherelates history that she was admitted to the hospital for breathing difficulty and was released on Thursday. This is approximately 5 days ago. She is only at the retirement facility temporarily. 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 She has been taking prednisone since discharge. She presents today with increasing shortness of breath and occasional cough. No fevers or chills. [facility] Medical History History of diabetes mellitus [...] mg tablet 25 mg PO BID BLOOD [facility] 08/16/18 01/15/25 History pantoprazole 40 mg [...] hence, she was admitted then placed in retirement facility. Says that she had history of [...] on steroids and nebulizer treatments at the retirement facility. She is motivated for discharge. Disposition [...] 78.7 H Lymph % (Auto) 12.5 L [place] % (Auto) 6.7 Eos % (Auto) 1.0 [...] evaluation. No obvious acute finding. Reading Location: [id number] Discharge Plan Triage Chief Complaint: Shortness of [...] wear your nasal cannula oxygen. Print Language: Turkish Disposition Disposition: Home, Self Care What to do if you have Problems For any increased pain, shortness of breath, bleeding, nausea or vomiting, chestpain, or any unexpected problems, contact your Primary Care Provider. Call [facility] ([phone]) or report to the closest Emergency Room. Call 911 if necessary. 02/19/25 0005 <Electronically signed by Billy Kothari MD> Cosigner Signature (if applicable): CC: Dr. Ramone Smiley MD ~ Signed [facility] Work Phone: 1(274) 206-951806-20-2025 Discharge summary Author Heydi Amaya [facility] Note Date/Time February 17, 2025 5:15 pm [facility] Medical Records Department [address] [place] [address] Discharge Summary 02/17/25 1713 MR#: [id number] Acct: [id number] Name: OLGA DONALDSON Rep #:[id number] : 1945 80 From: Heydi Amaya MD PCP: Dr. Ramone Smiley MD Status:ADM JESS Location: [place] [address] Providers Date of Admission: 02/15/25 Date of [...] GERD, COPD, hypertension, diabetes who presented to [facility] ED 02/16/2025 with shortness of breath [...] (Auto) 86.1 H, Lymph % (Auto) 7.8L, [place] % (Auto) 5.0, Eos % (Auto) 0.1, [...] BID (DME) lancets [TRUEplus Lancets] 28 gauge [facility] MISCELLANEOUS Breztri Aerosphere 160-9-4.8 mcg/actuation HFA aerosol [...] in before D/C Order can be placed): [facility] Facility Charges/Coding Visit Charges Inpatient E&M: 10100 Disch Hosp 02/17/251714 <Electronically signed by Heydi Amaya MD> Cosigner Signature (if applicable): CC: Dr. Ramone Smiley MD; Dr. Heydi Amaya MD~ Signed [facility] Work Phone: 1(274) 860-485206-20-2025 Discharge summary Author Heydi Amaya [facility] Note Date/Time February 17, 2025 5:13 pm [facility] Medical Records Department [address] [address] [place] [address] Transfer to [facility] MR#: [id number] Acct: [id number] Name: OLGA DONALDSON Rep #:[id number] : 1945 80 From: Heydi Amaya MD PCP: Dr. Ramone Smiley MD Status:ADM JESS Certification of patient admission REQUIRED AT TIME OF ADMISSION. I CERTIFY THAT POST-HOSPITAL ECF SERVICES ARE REQUIRED TO BE GIVEN ON AN IN-PATIENT BASIS BECAUSE OF THE ABOVE NAMED PATIENT'S NEED FOR ASSISTED CARE ON A CONTINUING BASIS FOR THE CONDITION(S) FOR WHICH HE/SHE WAS RECEIVING IN-PATIENT HOSPITAL SERVICES PRIOR TO HIS/HER TRANSFER TO THE [facility]. 02/17/251712<Electronically signed by Heydi Amaya MD> Diet [...] GERD, COPD, hypertension, diabetes who presented to [facility] ED 02/16/2025 with shortness of breath [...] in before D/C Order can be placed): [facility] Facility 02/17/25 1713 <Electronically signed by Heydi Amaya MD> Cosigner Signature (if applicable): CC: Dr. Nestor Bartlett DO; Dr. Ramone Smiley MD ~ [facility] Work Phone: 1(505) 183-253206-20-2025 [facility]06-19-2025 Progress note Author Heydi [facility] Note Date/Time February 16, 2025 4:45 pm [facility] Medical Records Department [address] [place] [address] Progress Note - Hospitalist 02/16/25 0829 MR#: [id number] Acct: [id number] Name: OLGA DONALDSON Rep #:[id number] : 1945 80 From: Heydi Amaya MD PCP: Dr. Ramone Smiley MD Status:ADM JESS Location: [facility] AP830-4 Reason for Visit Reason for Visit: Diagnoses [...] 82.5 H, Lymph % (Auto) 10.9 L, [place] % (Auto) 4.8, Eos % (Auto) 0.7, [...] evidence of acute cardiopulmonary process. Reading [facility] Physical Exam Narrative General: Alert, oriented, [...] GERD, COPD, hypertension, diabetes who presented to [facility] ED 02/16/2025 with shortness of breath [...] -Continue PPI #DVT ppx: Lovenox subcu Heydi Amyaa MD Charges/Coding Visit Charges Inpatient E&M: 23044 Subs Hosp L2 02/16/25 1645 <Electronically signed by Heydi Amaya MD> Cosigner Signature (if applicable): CC: ~ Signed [facility] Work Phone: 1(984) 663-164706-18-2025 Discharge summary Author Robret Allison [facility] Note Date/Time February 15, 2025 3:14 pm [facility] Medical Records Department [address] [place] [address] Emergency Department Summary 02/15/25 MR#: [id number] Acct: [id number] Name: OLGA DONALDSON Rep #:[id number] : 1945 80 From: Robert Allison DO PCP: Dr. Ramone Smiley MD Status:ADM JESS Location: [place] [address] HPI History of Present Illness Chief Complaint: [...] a cough. Denies fever or chest pain. [facility] Medical History (Updated 02/15/25 @ 13:15 [...] mg tablet 25 mg PO BID BLOOD [facility] 08/16/18 01/15/25 History pantoprazole 40 mg [...] and faint expiratory wheezes. Mild tachypnea. 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 asbestos worker saw patient and asked that we [...] 82.5 H Lymph % (Auto) 10.9 L [place] % (Auto) 4.8 Eos % (Auto) 0.7 [...] evidence of acute cardiopulmonary process. Reading Location[facility] 1 view chest x-ray obtained interpreted [...] Care Provider] - 3-5 Days Print Language: Turkish Disposition Disposition: Acute Care Hospital [facility] What to do if you have Problems For any increased pain, shortness of breath, bleeding, nausea or vomiting, chestpain, or any unexpected problems, contact your Primary Care Provider. Call [facility] ([phone]) or report to the closest Emergency Room. Call 911 if necessary. 02/15/25 1514 <Electronically signed by Robert Allison DO> Cosigner Signature (if applicable): CC: Dr. Ramone Smiley MD ~ Signed [facility] Work Phone: 1(224) 490-612806-18-2025 History and physical note Author Nestor Bartlett [facility] Note Date/Time February 15, 2025 2:57 pm [facility] Medical Records Department [address] [place] [address] H&P Exam - Hospitalist 02/15/25 1401 MR#: [id number] Acct: [id number] Name: OLGA DONALDSON Rep #:[id number] : 1945 80 From: Nestor roman DO PCP: Dr. Ramone Smiley MD Status:ADM JESS Location: [place] [address] HPI - General General Date of Admission: 02/15/25 Date of Service: 02/15/25 Chief Complaint: Shortness of breath, acute on chronic debility HPI Narrative OLGA DONALDSON, is a 80 F who presented to [facility] ED on 02/15/2025 with shortness of [...] currently. Will be admitted for further management. [facility] Medical History (Updated 02/15/25 @ 13:15 by [...] mg tablet 25 mg PO BID BLOOD [facility] 08/16/18 01/15/25 History pantoprazole 40 mg [...] 82.5 H, Lymph % (Auto) 10.9 L, [place] % (Auto) 4.8, Eos % (Auto) 0.7, [...] evidence of acute cardiopulmonary process. Reading Location[facility] Assessment & Plan Assessment/Plan (1) Generalized weakness: PLAN: Plan Patient is an 80-year-old female who presented [facility] ED on 02/15/2025 with recurrent shortness of breath and acute on chronic debility. 1. Acute on chronic debility ? Admit under observation status to [facility]. PT/OT/case management consulted. Multiple recent hospitalizations for [...] 75 minutes. Charges/Coding Visit Charges Inpatient E&M: 31789 Init Hosp L3 02/15/25 1457 <Electronically signed by Nestor Bartlett DO> Cosigner Signature (if applicable): CC: Dr. Nestor Bartlett DO; Dr. Ramone Smiley MD~ Signed [facility] Work Phone: 1(962) 435-511306-18-2025 Radiology Diagnostic study [facility]06-16-2025 Discharge summary Author Lucio Borden [facility] Note Date/Time February 13, 2025 2:22 pm [facility] Medical Records Department [address] [place] [address] Instructions for Home/Discharge Instructions 02/13/25 1415 MR#: [id number] Acct: [id number] Name: OLGA DONALDSON Rep #:[id number] : 1945 80 From: Lucio Borden DO [...] CC: Dr. Ramone Smiley MD ~ Signed [facility] Work Phone: 1(520) 546-178506-16-2025 [facility]06-15-2025 Progress note Author [facility] Note Date/Time February 12, 2025 11:2 5am [facility] Medical Records Department [address] [place] [address] Progress Note - Hospitalist 02/12/25 1123 MR#: [id number] Acct: [id number] Name: OLGA DONALDSON Rep #:[id number] : 1945 80 From: Lucio Borden DO PCP: Dr. Ramone Smiley MD Status:ADM IN Location: [place] [id number] Reason for Visit Reason for Visit: Diagnoses [...] 35- minutes Charges/Coding Visit Charges Inpatient E&M: 76061 Subs Hosp L2 02/12/25 1125 <Electronically signed by Lucio Borden DO> Cosigner Signature (if applicable): CC: ~ Signed [facility] Work Phone: 1(143) 844-284806-14-2025 Progress note Author Lucio Borden [facility] Note Date/Time February 11, 2025 4:29 pm [facility] Medical Records Department [address] [place] [address] Progress Note - Hospitalist 02/11/25 1621 MR#: [id number] Acct: [id number] Name: OLGA DONALDSON Rep #:[id number] : 1945 80 From: Lucio Borden DO PCP: Dr. Ramone Smiley MD Status:ADM IN Location: [place] [address] Reason for Visit Reason for Visit: Diagnoses [...] 35- minutes Charges/Coding Visit Charges Inpatient E&M: 64931 Subs Hosp L2 02/11/25 1629 <Electronically signed by Lucio Borden DO> Cosigner Signature (if applicable): CC: ~ Signed [facility] Work Phone: 1(366) 808-737106-13-2025 Progress note Author [facility]io [facility] Note Date/Time February 10, 2025 5:29 pm [facility] Medical Records Department [address] [place] [address] Progress Note - Hospitalist 02/10/25 1720 MR#: [id number] Acct: [id number] Name: OLGA DONALDSON Rep #:[id number] : 1945 80 From: Lucio Borden DO PCP: Dr. Ramone Smiley MD Status:ADM IN Location: MS3 LV405-3 Reason for Visit Reason for Visit: Diagnoses [...] 35- minutes Charges/Coding Visit Charges Inpatient E&M: 84585 Subs Hosp L2 02/10/25 9269 <Electronically signed by Lucio Borden DO> Cosigner Signature (if applicable): CC: ~ Signed [facility] Work Phone: 1(514) 997-264806-12-2025 History and physical note Author Tono Gomez [facility] Note Date/Time February 09, 2025 7:17 pm [facility] Medical Records Department [address] [place] [address] H&P Exam - Hospitalist 02/09/25 1525 MR#: [id number] Acct: [id number] Name: OLGA DONALDSON Rep #:[id number] : 1945 80 From: Tono BHATTI PCP: Dr. Ramone Smiley MD Status:ADM IN Location: [facility] QI042-3 [facility] - General General Date of Service: 02/09/25 [...] tightness, no dizziness or lightheadedness, no palpitations. [facility] Medical History COPD with exacerbation Anemia History [...] mg tablet 25 mg PO BID BLOOD [facility] 08/16/18 01/15/25 History pantoprazole 40 mg [...] 01/15/25 01/15/25 History 0.005 % eye drops ([facility]) psyllium husk 0.4 gram capsule 0.4 [...] (Auto) 86.9 H, Lymph % (Auto) 7.3L, [place] % (Auto) 4.5, Eos % (Auto) 0.1, [...] degree of bibasilar linear atelectasis. Reading Location: [facility] Assessment & Plan Assessment/Plan (1) COPD [...] assessment and findings. Visit Charges Inpatient E&M: 18590 Init Hosp L2 02/09/251916<Electronically signed by Lucio Borden DO> Cosigner Signature (if applicable): cc: DAVY Dykes; Dr. Ramone Smiley MD; Dr. Lucio Borden DO ~* Signed [facility] Work Phone: 1(533) 627-736906-12-2025 Discharge summary Author Jeremiah Corrales [facility] Note Date/Time February 09, 2025 2:57 pm [facility] Medical Records Department [address] [place] [address] Emergency Department Summary 02/09/25 MR#: [id number] Acct: [id number] Name: OLGA DONALDSON Rep #:[id number] : 1945 80 From: Jeremiah Corrales MD [...] Prior similar symptoms: Yes Recent Illness/Hospitalization: Yes [facility] Medical History COPD with exacerbation Anemia [...] mg tablet 25 mg PO BID BLOOD [facility] 08/16/18 01/15/25 History pantoprazole 40 mg [...] 86.9 H Lymph % (Auto) 7.3 L Raleigh % (Auto) 4.5 Eos % (Auto) 0.1 [...] degree of bibasilar linear atelectasis. [facility], 2 views, interpreted by [...] rhythm rate of 93 no acute signs MD or ischemia. Patient does have inverted T waves in V4 5 and 6 slight change from prior EKG from February 04. Prior EKG tracings: available for review Prior: Changed Discharge Plan Dx/Rx/DC Orders Clinical Impression: Acute dyspnea, Elevated troponin, Hypoxia, COPD exacerbation, History of diabetes mellitus Disposition Disposition: Acute Care Hospital [facility] What to do if you have Problems For any increased pain, shortness of breath, bleeding, nausea or vomiting, chestpain, or any unexpected problems, contact your Primary Care Provider. Call [facility] ([phone]) or report to the closest Emergency Room. Call 911 if necessary. 02/09/25 2617 <Electronically signed by Jeremiah Corrales MD> Cosigner Signature (if applicable): CC: Dr. Ramone Smiley MD ~ Signed [facility] Work Phone: 1(191) 605-374106-12-2025 Radiology Diagnostic study [facility]06-09-2025 Discharge summary Author Lucio Borden [facility] Note Date/Time February 06, 2025 2:01p m [facility] Medical Records Department [address] [place] [address] Instructions for Home/Discharge Instructions 02/06/25 1351 MR#: [id number] Acct: [id number] Name: OLGA DONALDSON Rep #:[id number] : 1945 80 From: Lucio Borden DO [...] CC: Dr. Ramone Smiley MD ~ Signed [facility] Work Phone: 1(988) 281-509606-09-2025 [facility]06-08-2025 Progress note Author Lucio Borden [facility] Note Date/Time February 05, 2025 2:48p m [facility] Medical Records Department [address] [place] [address] Progress Note - Hospitalist 02/05/25 1442 MR#: [id number] Acct: [id number] Name: OLGA DONALDSON Rep #:[id number] : 1945 80 From: Lucio Borden DO PCP: Dr. Ramone Smiley MD Status:ADM IN Location: [place] [address] Subjective Subjective Patient was seen and examined [...] not believe the patient has had an MD #4 type 2 diabetes-blood sugars will be [...] 35 minutes Charges/Coding Visit Charges Inpatient E&M: 22136 Subs Hosp L2 02/05/25 3362 <Electronically signed by Lucio Borden DO> Cosigner Signature (if applicable): CC: ~ Signed [facility] Work Phone: [phone]) 103-961806-07-2025 Discharge summary Author Aj Holley [facility] Note Date/Time February 04, 2025 10:27 am [facility] Medical Records Department [address] [place] [address] Emergency Department Summary 02/04/25 MR#: [id number] Acct: [id number] Name: OLGA DONALDSON Rep #:[id number] : 1945 80 From: Aj Holley MD [...] of the couch, and has no pain. [facility] Medical History Elevated troponin Coronary artery [...] mg tablet 25 mg PO BID BLOOD [facility] 08/16/18 01/15/25 History pantoprazole 40 mg [...] (Reviewed 01/31/25 @ 16:15 by Whitney Cao [employer]REL ENDSHAKER ADJUSTER, [employer]REL ENDSHAKER ADJUSTER-C) Daughter Breast cancer Father Hypertension Sister Cancer Kidney disease Mother Pancreatic cancer Surgical History History of left hip hemiarthroplasty S/P fine needle aspiration (~10/2020) H/O dilation and curettage (~07/10/20) History of Achilles tendon repair Retinopathy History of lumpectomy of left breast Social History (Reviewed 01/31/25 @ 16:15 by Whitney Cao [employer]REL ENDSHAKER ADJUSTER, BARREL ENDSHAKER ADJUSTER-C) household members: spouse Smoking Status: Former smoker [...] 75.4 H Lymph % (Auto) 15.7 L Raleigh % (Auto) 6.6 Eos % (Auto) 1.7 [...] MD [Primary Care Provider] - Print Language: Turkish What to do if you have Problems For any increased pain, shortness of breath, bleeding, nausea or vomiting, chestpain, or any unexpected problems, contact your Primary Care Provider. Call [facility] ([phone]) or report to the closest Emergency Room. [...] 11.8 and 37.9. White count slightly elevated Cu[place]o 0.2 thousand. There is slight shift with [...] cc: Dr. Ramone Smiley MD ~* Signed [facility] Work Phone: 1([phone]) 150-779006-07-2025 Radiology Diagnostic study [facility]06-07-2025 Radiology Diagnostic study [facility]05-29-2025 Radiology Diagnostic study [facility] 01-24-2025 [facility]05-26-2025 Progress note Author Becca Silverman [facility] Note Date/Time January 23, 2025 3:40p m [facility] Medical Records Department [address] [place] [address] Progress Note - Cardiology 01/23/25 1528 MR#: [id number] Acct: [id number] Name: OLGA DONALDSON Rep #:[id number] : 1945 80 From: Becca Silverman MD PCP: Dr. Ramone Smiley MD Status:ADM IN Location: [place] [address] Subjective Subjective Seen and evaluated at bedside [...] (Auto) 90.8 H, Lymph % (Auto) 6.2L, Raleigh % (Auto) 2.7, Eos % (Auto) 0.0, [...] (Auto)90.8 H, Lymph % (Auto) 6.2 L, Raleigh % (Auto) 2.7, Eos % (Auto) 0.0, [...] up an appointment to be seen by crop grain or livestock farm manager as an outpatient and discussed further plan possible Lexiscan sestamibi and based on results of Lexiscan sestamibi to consider further evaluation. To minimize risk of contrast-induced nephropathy. Becca Silverman MD,[facility] 01/23/25 2430 <Electronically signed by Becca Silverman MD> Cosigner Signature (if applicable): CC: ~ Signed [facility] Work Phone: 1(464) 650-962505-26-2025 Progress note Author Melba [facility] Note Date/Time January 23, 2025 2:43p m [facility] Medical Records Department [address] [place] [address] Progress Note 01/23/25 1037 MR#: [id number] Acct: [id number] Name: OLGA DONALDSON Rep #:[id number] : 1945 80 From: Melba Hartmann MD PCP: Dr. Ramone Smiley MD Status:ADM IN Location: [place] [address] Subjective Subjective Patient seen and examined. She [...] (Auto) 90.8 H, Lymph % (Auto) 6.2L, Raleigh % (Auto) 2.7, Eos % (Auto) 0.0, [...] prophylaxis: Heparin Charges/Coding Visit Charges Inpatient E&M: 10375 Subs Hosp L2 01/23/25 4874 <Electronically signed by Melba Hartmann MD> Melba Hartmann MD Cosigner Signature (if applicable): CC: ~ Signed [facility] Work Phone: 1([phone]) 535-233905-25-2025 Progress note Author Melba Hartmann [facility] Note Date/Time January 22, 2025 2:00p m [facility] Medical Records Department [address] [place] [address] Progress Note 01/22/25 0949 MR#: [id number] Acct: [id number] Name: OLGA DONALDSON Rep #:[id number] : 1945 80 From: Melba Hartmann MD PCP: Dr. Ramone Smiley MD Status:ADM IN Location: [place] [address] Subjective Subjective Patient seen and examined this [...] 91.4 H, Lymph % (Auto) 5.7 L, Raleigh % (Auto) 2.4, Eos % (Auto) 0.0, [...] to PCU Charges/Coding Visit Charges Inpatient E&M: 27954 Subs Hosp L2 01/22/25 1242 <Electronically signed by Melba Hartmann MD> Melba Hartmann MD Cosigner Signature (if applicable): CC: ~ Signed ADDENDUM by Dr. Melba Hartmann MD on 01/22/25 at 1400 Addendum 1:30pm Patient's son Ursula Lees Jr called on the phone ([phone]) and updated about his mother's condition. 01/22/25 1400 <Electronically signed by Melba vivas MD> Date _ Melba Hartmann MD Cosigner Signature (if applicable): Date cc: ~* Signed [facility] Work Phone: 1(951) 147-512605-24-2025 Progress note Author Melba Hartmann [facility] Note Date/Time January 21, 2025 2:07p [facility] Medical Records Department [address] [place] [address] Progress Note 01/21/25 1039 MR#: [id number] Acct: [id number] Name: OLGA DONALDSON Rep #:[id number] : 1945 80 From: Melba Hartmann MD [...] 88.4 H, Lymph % (Auto) 7.7 L, Raleigh % (Auto) 3.5, Eos % (Auto) 0.0, [...] H, Cal[place] 9.8, [place] [address] H 01/21/25 08:06: POC Glucose 202 H [...] To/Read Back Yes [facility] Notified Time 16:55:40 Radiography Diagnostic [...] noted. Cardiomegaly. No pericardial effusion. Reading Location: [facility] Echocardiogram 01/20/25 04:12 Interpretation Summary Mildly dilated left ventricle. The estimated ejection fraction is 35-40 %. There is evidence of diastolic dysfunction. There is moderate global hypokinesis of the left ventricle. Trivial mitral valve insufficiency. Mild aortic stenosis. Trivial aortic valve insufficiency. Ordering Physician: Sandeep Carlton Referring Physician: Ramone Smiley Performed By: Margot Cleary, RDCS, RVT Chest X-Ray 01/21/25 05:55 IMPRESSION: New appearing movm-hk-ydosvdnq ill-defined perihilar opacity at the left upper lobe may represent developing infiltrate or less likely an asymmetric edema pattern. Bilateral medial retrocardiac lower lobe streaky opacities not significantly changed. No pleural effusions identified. Reading Location: [facility] Physical Exam Const alert, oriented x3, [...] prophylaxis: Heparin Charges/Coding Visit Charges Inpatient E&M: 43835 Subs Hosp L2 01/21/25 1407 <Electronically signed by Melba Hartmann MD> Melba Hartmann MD Cosigner Signature (if applicable): CC: ~ Signed [facility] Work Phone: 1(273) 119-501005-24-2025 Radiology Diagnostic study [facility]05-23-2025 Progress note Author [facility] Note Date/Time January 20, 2025 4:58p m [facility] Medical Records Department [address] [place] [address] Progress Note - Hospitalist 01/20/25 1657 MR#: [id number] Acct: [id number] Name: PATRICK DONALDSONCA Rep #:[id number] : 1945 80 From: Lucio Borden DO PCP: Dr. Ramone Smiley MD Status:ADM IN Location: [place] [address] Hospitalist Note Patient continues to have respiratory [...] Cosigner Signature (if applicable): CC: ~ Signed [facility] Work Phone: 1(396) 187-941905-23-2025 Progress note Author Lucio [facility] Note Date/Time January 20, 2025 11:20 am [facility] Medical Records Department [address] [place] [address] Progress Note - Hospitalist 01/20/25 1119 MR#: [id number] Acct: [id number] Name: ANIKAOLGA Rep #:[id number] : 1945 80 From: Lucio Borden DO PCP: Dr. Ramone Smiley MD Status:ADM IN Location: [place] [address] Hospitalist Note Patient was seen and examined today, made the decision to change the patient to Airvo, patient was admitted for suspected right lower lobe pneumonia and exacerbation of COPD, she remained on aerosol treatments, IV Solu-Medrol, and IVlevofloxacin. 01/20/25 1120 <Electronically signed by Lucio Borden DO> Cosigner Signature (if applicable): CC: ~ Signed [facility] Work Phone: [phone]) [phone] History and physical note Author Sandeep Marie [facility] Note Date/Time January 20, 2025 6:06a m [facility] Medical Records Department [address] [place] [address] H&P Exam - Hospitalist 01/20/25 0241 MR#: [id number] Acct: [id number] Name: OLGA DONALDSON Rep #:[id number] : 1945 80 From: Sandeep Dukes DO PCP: Dr. Ramone Smiley MD Status:ADM IN Location: [place] [address] HPI - General General Date of Admission: [...] stenosis of lumbar region who presents to [facility] ER complaining of shortness of breath. [...] is expected to extend beyond 2 midnights. [facility] Medical History Fracture of hip, left, closed [...] mg tablet 25 mg PO BID BLOOD [facility] 08/16/18 01/15/25 History pantoprazole 40 mg [...] Neut % (Auto) 58.4, Lymph % (Auto) 32.0,Raleigh % (Auto) 7.7, Eos % (Auto) 0.8, [...] Clarity Clear, Urine pH 6.0, Ur Specific [place] 1.010, Urine Protein 100 H, Urine Glucose [...] noted. Cardiomegaly. No pericardial effusion. Reading Location: [id number] Assessment & Plan Assessment/Plan (1) Pneumonia: QUALIFIERS: [...] twice daily. Give acetaminophen as needed for mdtn-su-pzzsdwlw (level 1-5/10) pain or fever. Give morphine [...] responsive hypotension Charges/Coding Visit Charges Inpatient E&M: 15475 Init Hosp L3 01/20/25 0606 <Electronically signed by Sandeep Carlton DO> Cosigner Signature (if applicable): CC: Dr. Sandeep Carlton DO; Dr. Ramone Smiley MD~ Signed [facility] Work Phone: [phone]) 839-243605-23-2025 Evaluation note* Diagnosis Onset Date Resolution Status Admit Date Acute hypoxemic respiratory failure acute January 20, 2025 3 :32am Acute hypoxic on chronic hypercapnic respiratory failure acute January 20, 2025 3:32am Elevated troponin acute December 3:32am Lactic acidosis acute January 20, 2025 3:32am Leukocytosis acute January 20 3:32am Obesity (BMI 30.0-34.9) acute [facility] 2024 3:32am Pneumonia acute January 20, 2025 3:32am Aortic stenosis chronic January 20, 2025 3:32am CHF exacerbation chronic December 3:32am COPD exacerbation chronic December 3:32am Coronary artery disease chronic 2024 3:32am Hypertension chronic January 20 3:32am [facility] Work Phone: [phone] 680-621405-23-2025 Evaluation note* Diagnosis Onset Date Resolution Status [...] diabetes mellitus chronic February 04, 2025 10:52am [facility] Work Phone: [phone]) [phone] Evaluation note* Diagnosis Onset Date Resolution Status [...] diabetes mellitus chronic February 04, 2025 10:52am [facility] Work Phone: [phone] Evaluation note* Diagnosis Onset Date Resolution Status [...] failure remov ed February 09, 2025 3:00pm [facility] Work Phone: [phone] 261-433705-23-2025 Evaluation note* Diagnosis Onset Date Resolution Status [...] 2025 1:42pm Hypertension chronic January 31 1:42pm [facility] Work Phone: [phone]) 457-920605-23-2025 Evaluation note* Diagnosis Onset Date Resolution Status [...] failure remov ed February 09, 2025 3:00pm [facility] Work Phone: [phone] Evaluation note* Diagnosis Onset Date Resolution Status [...] Generalized weakness inactive February 15, 2025 2:01pm [facility] Work Phone: [phone]) [phone] Evaluation note* Diagnosis Onset Date Resolution Status [...] Generalized weakness inactive February 15, 2025 2:01pm [facility] Work Phone: [phone]) 261-571005-23-2025 Discharge summary Author Jeevan Yoder [facility] Note Date/Time January 20, 2025 2:43a m [facility] Medical Records Department [address] [place] [address] Emergency Department Summary 01/20/25 MR#: [id number] Acct: [id number] Name: OLGA DONALDSON Rep #:[id number] : 1945 80 From: Jeevan Yoder DO PCP: Dr. Ramoen Smiley MD Status:REG ER Location: ED ADDENDUM [...] has had progressive worsening shortness of breath. [facility] Medical History Fracture of hip, left, [...] mg tablet 25 mg PO BID BLOOD [facility] 08/16/18 01/15/25 History pantoprazole 40 mg [...] % (Auto) 58.4 Lymph % (Auto) 32.0 [place] % (Auto) 7.7 Eos % (Auto) 0.8 [...] Clarity Clear Urine pH 6.0 Ur Specific [place] 1.010 Urine Protein 100 H Urine Glucose [...] noted. Cardiomegaly. No pericardial effusion. Reading Location: [facility] Discharge Plan Triage Chief Complaint: Shortness [...] MD [Primary Care Provider] - Print Language: Turkish What to do if you have Problems For any increased pain, shortness of breath, bleeding, nausea or vomiting, chestpain, or any unexpected problems, contact your Primary Care Provider. Call [facility] ([phone]) or report to the closest Emergency Room. Call 911 if necessary. 01/20/25 7222 <Electronically signed by Jeevan Yoder DO> Cosigner Signature (if applicable): CC: Dr. Ramone Smiley MD ~ Signed [facility] Work Phone: 1(490) 527-383005-23-2025 Radiology Diagnostic study [facility]05-18-2025 Discharge summary [facility] Medical Records Department [address] [place] [address] Emergency Department Summary 01/15/25 MR#: [id number] Acct: [id number] Name: OLGA DONALDSON Rep #:[id number] : 1945 80 From: Jeevan Yoder DO [...] of the antibiotic that was placed on. [facility] Medical History Fracture of hip, left, [...] mg tablet 25 mg PO BID BLOOD [facility] 08/16/18 01/15/25 History pantoprazole 40 mg [...] 72.7 H Lymph % (Auto) 18.1 L [place] % (Auto) 6.9 Eos % (Auto) 1.6 [...] IMPRESSION: Cardiomegaly with mild congestion. Reading Location: [facility] Discharge Plan Triage Chief Complaint: Shortness [...] with worsening symptoms or concerns. Print Language: Turkish Disposition Disposition: Home, Self Care What to do if you have Problems For any increased pain, shortness of breath, bleeding, nausea or vomiting, chestpain, or any unexpected problems, contact your Primary Care Provider. Call [facility] ([phone]) or report tothe closest Emergency Room. Call 911 if necessary. 01/15/25 1845 Cosigner Signature (if applicable): CC: Dr. Ramone Smiley MD ~ Signed [facility]05-18-2025 Radiology Diagnostic study note [facility] Imaging Services [address] [place], [place] [address] Chest PA and Lateral MR#: [id number] Acct: [id number] Name: OLGA DONALDSON Rep #: [id number] : 1945 F 80 From: Kary Darnell MD PCP: Dr. Ramone Smiley MD Status: REG ER Study:Chest PA and Lateral Date of Exam: 01/15/25 Exam# [id number] Ordering Dr: Yoly Yoder DO EXAM: XR Chest, 2 Views CLINICAL INDICATION: CHEST PAIN TECHNIQUE: Frontal and lateral views of the chest. COMPARISON: No relevant prior studies available. FINDINGS: LUNGS AND PLEURAL SPACES: See below. HEART: Cardiomegaly with mild congestion. MEDIASTINUM: Unremarkable. Normal mediastinal contour. BONES/JOINTS: Unremarkable. No acute fracture. RAD/Chest PA and Lateral IMPRESSION: Cardiomegaly with mild congestion. Reading Location: [facility] CC: Dr. Ramone Smiley MD; Dr. Jeevan Yoder DO ~ Eyelet Row Marker: Signed [facility]05-18-2025 Discharge summary Author Jeevan Yoder [facility] Note Date/Time January 15, 2025 6:45p m [facility] Medical Records Department [address] [place] [address] Emergency Department Summary 01/15/25 MR#: [id number] Acct: [id number] Name: OLGA DONALDSON Rep #:[id number] : 1945 80 From: Jeevan Yoder DO [...] of the antibiotic that was placed on. [facility] Medical History Fracture of hip, left, [...] mg tablet 25 mg PO BID BLOOD [facility] 08/16/18 01/15/25 History pantoprazole 40 mg [...] 72.7 H Lymph % (Auto) 18.1 L [place] % (Auto) 6.9 Eos % (Auto) 1.6 [...] IMPRESSION: Cardiomegaly with mild congestion. Reading Location: [facility] Discharge Plan Triage Chief Complaint: Shortness of [...] with worsening symptoms or concerns. Print Language: Turkish Disposition Disposition: Home, Self Care What to do if you have Problems For any increased pain, shortness of breath, bleeding, nausea or vomiting, chestpain, or any unexpected problems, contact your Primary Care Provider. Call [facility] ([phone]) or report to the closest Emergency Room. Call 911 if necessary. 01/15/251844 <Electronically signed by Jeevan Yoder DO> Cosigner Signature (if applicable): CC: Dr. Ramone Smiley MD ~ Signed [facility] Work Phone: 1(222) [phone] Discharge summary [facility] Medical Records Department [address] [place] [address] Emergency Department Summary 01/07/25 MR#: [id number] Acct: [id number] Name: OLGA DONALDSON Rep #:[id number] : 1945 80 From: Ethan Casanova PCP: [...] mg tablet 25 mg PO BID BLOOD [facility] 08/16/18 08/12/23 History pantoprazole 40 mg [...] DIABETES 08/13/23 08/10/23 History [facility] gabapentin 100 mg capsule 100 mg PO [...] clinician: N/A This note was generated with [email or web address] dictation software. It may contain incorrectwords, spelling, [...] % (Auto) 58.0 Lymph % (Auto) 31.8 [place] % (Auto) 7.6 Eos % (Auto) 1.9 [...] Cardiomegaly without overt failure. Reading Location: [facility] Discharge Plan Triage Chief Complaint: Shortness of [...] steroids is tomorrow. This was sent to [email or web address]. Print Language: Turkish Disposition Disposition: Home, Self Care What to do if you have Problems For any increased pain, shortness of breath, bleeding, nausea or vomiting, chestpain, or any unexpected problems, contact your Primary Care Provider. Call [facility] ([phone]) or report tothe closest Emergency Room. Call 911 if necessary. 01/07/25 1700 Cosigner Signature (if applicable): CC: Dr. Ramone Smiley MD ~ Signed [facility]05-10-2025 Radiology Diagnostic study note [facility] Imaging Services [address] [place] [address] Chest PA and Lateral MR#: [id number] Acct: [id number] Name: OLGA DONALDSON Rep #: [id number] : 1945 F 80 From: Kary Darnell MD PCP: Dr. Ramone Smiley MD Status: PRE ER Study:Chest PA and Lateral Date of Exam: 01/07/25 Exam# [id number] Ordering Dr: Ethan Darnell DO EXAM: XR Chest, 2 Views CLINICAL INDICATION: COUGH TECHNIQUE: Frontal and lateral views of the chest. COMPARISON: No relevant prior studies available. FINDINGS: LUNGS AND PLEURAL SPACES: Unremarkable. No consolidation. No pneumothorax. HEART: Cardiomegaly without overt failure. MEDIASTINUM: Unremarkable. Normal mediastinal contour. BONES/JOINTS: Unremarkable. No acute fracture. RAD/Chest PA and Lateral IMPRESSION: Cardiomegaly without overt failure. Reading Location: [facility] CC: Dr. Ramone Smiley MD; Dr. Ethan Darnell DO ~ Eyelet Row Marker: Signed [facility]05-10-2025 Discharge summary Author Ethan Darnell [facility] Note Date/Time January 07, 2025 5:00p [facility] Medical Records Department [address] [place] [address] Emergency Department Summary 01/07/25 MR#: [id number] Acct: [id number] Name: OLGA DONALDSON Rep #:[id number] : 1945 80 From: Ethan Casanova PCP: [...] mg tablet 25 mg PO BID BLOOD [place] ESSURE 08/16/18 08/12/23 History pantoprazole 40 mg [...] clinician: N/A This note was generated with [email or web address] dictation software. It may contain incorrectwords, spelling, [...] % (Auto) 58.0 Lymph % (Auto) 31.8 Raleigh % (Auto) 7.6 Eos % (Auto) 1.9 [...] Cardiomegaly without overt failure. Reading Location: [facility] Discharge Plan Triage Chief Complaint: Shortness [...] steroids is tomorrow. This was sent to [email or web address]. Print Language: Turkish Disposition Disposition: Home, Self Care What to do if you have Problems For any increased pain, shortness of breath, bleeding, nausea or vomiting, chestpain, or any unexpected problems, contact your Primary Care Provider. Call [facility] ([phone]) or report to the closest Emergency Room. Call 911 if necessary. 01/07/25 1700 <Electronically signed by Ethan Casanova> Cosigner Signature (if applicable): CC: Dr. Ramone Smiley MD ~ Signed [facility] Work Phone: 1(113) 639-286305-01-2024 Progress note Author Sunny Ray [facility] December 30, 2023 12:34pm Note Date/Time December 30, 2023 12:35p [facility] Medical Records Department [address] [place] [address] Progress Note - Hospitalist 12/30/23 1228 MR#: [id number] Acct: [id number] Name: OLGA DONALDSON Rep #:[id number] : 1945 78 From: Sunny Blue PCP: Dr. Ramone Smiley MD Status:ADM IN [facility] Reason for Visit Reason for Visit: Diagnoses [...] % (Auto) 63.9, Lymph % (Auto) 25.3, Raleigh % (Auto) 8.7, Eos % (Auto) 1.4, [...] Patient is a 78-year-old female who presented [facility] ED on 12/27/2023 with left hip [...] cousin over the phone who lives in [facility]. Patient is clinically doing well. Currently has [...] disposition: TBD Charges/Coding Visit Charges Inpatient E&M: 49954 Subs Hosp L2 12/30/23 1234 <Electronically signed by Sunny Bell MD> Cosigner Signature (if applicable): CC: ~ Signed [facility] Work Phone: 1(257) 179-596704-30-2024 Progress note Author Sunny Bell [facility] December 29, 2023 12:47pm Note Date/Time December 29, 2023 9:3 0am [facility] Medical Records Department [address] [place] [address] Progress Note - Hospitalist 12/29/23 0929 MR#: [id number] Acct: [id number] Name: OLGA DONALDSON Rep #:[id number] : 1945 78 From: Sunny Blue PCP: Dr. Ramone Smiley MD Status:ADM IN Location: [place] [address]-1 Reason for Visit Reason for Visit: Diagnoses [...] (Auto) 81.1 H, Lymph %(Auto) 9.5 L, Raleigh % (Auto) 8.5, Eos % (Auto) 0.1, [...] Patient is a 78-year-old female who presented [facility] ED on 12/27/2023 with left hip [...] cousin over the phone who lives in [facility]. Patient is clinically doing well. Currently has [...] disposition: TBD Charges/Coding Visit Charges Inpatient E&M: 66619 Subs Hosp L2 12/29/23 1247 <Electronically signed by Sunny Bell MD> Cosigner Signature (if applicable): CC: ~ Signed [facility] Work Phone: 1(930) 796-716304-30-2024 Progress note Author Sj Delacruz [facility] December 29, 2023 11:56am Note Date/Time December 29, 2023 11: 56am [facility] Medical Records Department [address] [place] [address] Progress Note - Orthopedic 12/29/23 1152 MR#: [id number] Acct: [id number] Name: OLGA DONALDSON Rep #:[id number] : 1945 78 From: Sj BHATTI PA-C PCP: Dr. Ramone Smiley MD Status:ADM IN Location: MS3 [id number] Subjective Subjective Patient sitting at bedside watching [...] (Auto) 81.1 H, Lymph %(Auto) 9.5 L, Raleigh % (Auto) 8.5, Eos % (Auto) 0.1, [...] 14:25 EDT Reading Location ID and State: [facility] / [place] , Service support , Hip X-Ray 12/28/23 [...] Cosigner Signature (if applicable): CC: ~ Signed [facility] Work Phone: 1(304) 742-421304-29-2024 Consult note Author Gabriel Byrd [facility] December 28, 2023 12:59pm Note Date/Time December 28, 2023 12: 59pm [facility] Medical Records Department [address] [place] [address] Consultation - Orthopedics 12/28/23 1252 MR#: [id number] Acct: [id number] Name: OLGA DONALDSON Rep #:[id number] : 1945 78 From: Gabriel Blue PCP: Dr. Ramone Smiley MD Status:ADM IN Location: [facility] [id number] HPI Consult Data Date of Consult: 12/28/23 [...] She denies any previous DVTs or PEs. [facility] Medical History Anemia Anxiety Aortic stenosis Asthma [...] % (Auto) 51.7, Lymph % (Auto) 37.1, Raleigh % (Auto) 6.6, Eos % (Auto) 3.1, [...] Reading Location ID and State: 140 / [employer] , Service support , Hip/Pelvis X-Ray 12/27/23 23:05 IMPRESSION: Acute impacted fracture of the transcervical femoral neck. Electronically Signed: Weston Patel MD at 23:30 EDT Reading Location ID and State: 1407 / [employer] , Service support , Assessment & [...] rehab. Patient's projected recovery will likely require retirement or intensive inpatient rehabilitation prior to discharge back home. (2) Falls: (3) Weakness: (4) Microcytic anemia: (5) Chronic renal failure, stage 3 (moderate): QUALIFIERS: Chronic kidney disease stage 3 subtype: unspecified whether 3a or 3b Qualified Code(s): N18.30 - Chronic kidney disease, stage 3 unspecified 12/28/23 1259 <Electronically signed by Gabriel Byrd MD> Cosigner Signature (if applicable): CC: Dr. Ramone Smiley MD~ Signed [facility] Work Phone: 1([phone]) 601-239304-29-2024 Procedure [facility] 12-28-2023 Progress note Author Sunny Bell [facility] December 28, 2023 11:23am Note Date/Time December 28, 2023 9:5 2am [facility] Medical Records Department [address] [place] [address] Progress Note - Hospitalist 12/28/23 0949 MR#: [id number] Acct: [id number] Name: OLGA DONALDSON Rep #:[id number] : 1945 78 From: Sunny Blue PCP: Dr. Ramone Smiley MD Status:ADM IN Location: [place] [address] Reason for Visit Reason for Visit: Diagnoses [...] % (Auto) 51.7, Lymph % (Auto) 37.1, Raleigh % (Auto) 6.6, Eos % (Auto) 3.1, [...] 23:29 EDT Reading Location ID and State: 4246 / [employer] , Service support , Hip/Pelvis X-Ray 12/27/23 23:05 IMPRESSION: Acute impacted fracture of the transcervical femoral neck. Electronically Signed: Weston Patel MD at 23:30 EDT Reading Location ID and State: 8471 / [employer] , Service support , Physical Exam [...] Patient is a 78-year-old female who presented [facility] ED on 12/27/2023 with left hip [...] disposition: TBD Charges/Coding Visit Charges Inpatient E&M: 33235 Subs Hosp L2 12/28/23 1123 <Electronically signed by Sunny Bell MD> Cosigner Signature (if applicable): CC: ~ Signed [facility] Work Phone: 1(465) 708-619104-29-2024 History and physical note Author Nestor Bartlett [facility] December 28, 2023 4:47am Note Date/Time December 27, 2023 11: 30pm [facility] Medical Records Department [address] [place] [address] H&P Exam - Hospitalist 12/27/23 2330 MR#: [id number] Acct: [id number] Name: OLGA DONALDSON Rep #:[id number] : 1945 78 From: Nestor Cloud richar RAYMUNDO PCP: Dr. Ramone Smiley MD Status:ADM IN Location: [place] [address] HPI - General General Date of Admission: 12/27/23 Date of Service: 12/27/23 Chief Complaint: Left hip fracture HPI Narrative OLGA DONALDSON, is a 78 F who presented to [facility] ED on 12/27/2023 with left hip [...] Patient will be admitted for further management. [facility] Medical History Anemia Anxiety Aortic stenosis Asthma [...] % (Auto) 51.7, Lymph % (Auto) 37.1, Raleigh % (Auto) 6.6, Eos % (Auto) 3.1, [...] Patient is a 78-year-old female who presented [facility] ED on 12/27/2023 with left hip [...] 75 minutes. Charges/Coding Visit Charges Inpatient E&M: 94175 Init Hosp L3 12/28/23 0447 <Electronically signed by Nestor Bartlett DO> Cosigner Signature (if applicable): CC: Dr. Nestor Bartlett DO; Dr. Ramone Smiley MD~ Signed [facility] Work Phone: 1(756) 452-375604-29-2024 Discharge summary Author Queta Cortez [facility] December 28, 2023 2:33am Note Date/Time December 27, 2023 10: 23pm [facility] Medical Records Department [address] [place] [address] Emergency Department Summary 12/27/23 MR#: [id number] Acct: [id number] Name: OLGA DONALDSON Rep #:[id number] : 1945 78 From: Queta Cortez MD PCP: Dr. Ramone Smiley MD Status:ADM IN Location: [facility] CD768-5 HPI HPI - Fall History of Present [...] aspirin but no other form of anticoagulant. [facility] Medical History Anemia Anxiety Aortic stenosis [...] Medical decision making narrative: Patient placed on color television console monitor. Patient given morphine and Zofran for [...] % (Auto) 51.7 Lymph % (Auto) 37.1 Raleigh % (Auto) 6.6 Eos % (Auto) 3.1 [...] seen Dr. Ravi previously prior to his mcc. Dr. Byrd is on-call for [facility] and I will speak with [facility] and need for surgical repair. Discharge Plan Dx/Rx/DC Orders Clinical Impression: Fracture of hip, left, closed Disposition Disposition: Acute Care Hospital [facility] What to do if you have Problems For any increased pain, shortness of breath, bleeding, nausea or vomiting, chestpain, or any unexpected problems, contact your Primary Care Provider. Call [facility] ([phone]) or report to the closest Emergency Room. Call 911 if necessary. 12/28/23 0233 <Electronically signed by Queta Cortez MD> Cosigner Signature (if applicable): CC: Dr. Ramone Smiley MD ~ Signed [facility] Work Phone: [phone]) 517-254612-18-2023 Consult note Author Derrick Hallman [facility] August 17, 2023 11:38am Note Date/Time August 17, 2023 11:38am [facility] Medical Records Department [address] [place] [address] Counseling Note - Pharmacy 08/17/23 1137 MR#: [id number] Acct: [id number] Name: OLGA DONALDSON Rep #:[id number] : 1945 78 From: Derrick Hallman PCP: Dr. Ramone Smiley MD Status:ADM IN Y Location: [place] [id number] Service has performed discharge medication [...] mg chewable tablet 81 mg PO DAILY [facility] 01/21/16 albuterol sulfate 90 mcg/actuation aerosol [...] Signature (if applicable): Date CC: ~ Signed [facility] Work Phone: 1(750) 522-744312-18-2023 Discharge summary Author Sandeep Denson [facility] August 17, 2023 11:20am Note Date/Time August 17, 2023 11:12am [facility] Medical Records Department [address] [place] [address] Discharge Summary 08/17/23 1111 MR#: [id number] Acct: [id number] Name: OLGA DONALDSON Rep #:[id number] : 1945 78 From: Sandeep Denson MD PCP: Dr. Ramone Smiley MD Status:ADM IN Location: [facility] LPO094- 1 Providers Date of Admission: 08/13/23 Date [...] mg chewable tablet 81 mg PO DAILY [facility] 01/21/16 albuterol sulfate 90 mcg/actuation aerosol [...] Requested for PT OT eval and social services technician to assist with discharge planning 4. 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 Sandeep Denson MD; Dr. Ramone Smiley MD~ Signed [facility] Work Phone: 1(208) 604-475012-17-2023 Progress note Author Nestor Bartlett [facility] August 16, 2023 1:08pm Note Date/Time August 16, 2023 1:08pm [facility] Medical Records Department [address] [place] [address] Progress Note - Hospitalist 08/16/23 1300 MR#: [id number] Acct: [id number] Name: OLGA DONALDSON Rep #:[id number] : 1945 78 From: Nestor roman DO PCP: Dr. 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 Charges/Coding Visit Charges Inpatient E&M: 42102 Subs Hosp L2 08/16/23 1308 <Electronically signed by Nestor Bartlett DO> Cosigner Signature (if applicable): CC: ~ Signed [facility] Work Phone: 1(607) 792-227812-16-2023 Progress note Author Nestor [facility] August 15, 2023 1:28pm Note Date/Time August 15, 2023 1:24pm [facility] Medical Records Department [address] [facility] [place] [address] Progress Note - Hospitalist 08/15/23 1317 MR#: [id number] Acct: [id number] Name: OLGA DONALDSON Rep #:[id number] : 1945 78 From: Nestor roman DO PCP: Dr. 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 3. LIA, resolved [...] 35 minutes. Charges/Coding Visit Charges Inpatient E&M: 87141 Subs Hosp L2 08/15/23 1328 <Electronically signed by Nestor Bartlett DO> Cosigner Signature (if applicable): CC: ~ Signed [facility] Work Phone: 1([phone]) 948-600812-15-2023 Progress note Author Nestor [facility] August 14, 2023 3:08pm Note Date/Time August 14, 2023 2:58pm [facility] Medical Records Department [address] [place] [address] Progress Note - Hospitalist 08/14/23 1454 MR#: [id number] Acct: [id number] Name: OLGA DONALDSON Rep #:[id number] : 1945 78 From: Nestor roman DO PCP: Dr. 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 3. LIA, resolved [...] 35 minutes. Charges/Coding Visit Charges Inpatient E&M: 32001 Subs Hosp L2 08/14/23 1508 <Electronically signed by Nestor Bartlett DO> Cosigner Signature (if applicable): CC: ~ Signed [facility] Work Phone: [phone]) 856-708612-14-2023 Discharge summary Author [facility] August 13, 2023 3:29pm Note Date/Time August 13, 2023 10:40am [facility] Medical Records Department [address] [place] [address] Emergency Department Summary 08/13/23 MR#: [id number] Acct: [id number] Name: OLGA DONALDSON Rep #:[id number] : 1945 78 From: Robert Allison DO PCP: Dr. Ramone Smilye MD Status:ADM IN Location: [place] [address] HPI History of Present Illness Chief Complaint: [...] She denies chest pain. She self caths. [facility] Medical History Anemia Anxiety Aortic stenosis [...] mg chewable tablet 81 mg PO DAILY [facility] 01/21/16 [History Last Taken 08/12/23] albuterol [...] 82.7 H Lymph % (Auto) 9.4 L Raleigh % (Auto) 6.1 Eos % (Auto) 0.1 [...] Sl. Cloudy Urine pH 5.0 Ur Specific [place] 1.015 Urine Protein 30 H Urine Glucose [...] Acute hyponatremia Disposition Disposition: Acute Care Hospital [facility] Discharge Date/Time: 08/13/23 14:54 What to do if you have Problems For any increased pain, shortness of breath, bleeding, nausea or vomiting, chestpain, or any unexpected problems, contact your Primary Care Provider. Call [facility] ([phone]) or report to the closest Emergency Room. Call 911 if necessary. 08/13/23 1529 <Electronically signed by Robert Allison DO> Cosigner Signature (if applicable): CC: Dr. Ramone Smiley MD ~ Signed [facility] Work Phone: [phone]) 624-835212-14-2023 History and physical note Author Heydi Amaya [facility] August 13, 2023 2:47pm Note Date/Time August 13, 2023 2:33pm [facility] Medical Records Department [address] [place] [address] H&P Exam - Hospitalist 08/13/23 1431 MR#: [id number] Acct: [id number] Name: OLGA DONALDSON Rep #:[id number] : 1945 78 From: Heydi Amaya MD PCP: Dr. Ramone Smiley MD Status:ADM IN Location: [place] [address] HPI - General General Date of Admission: 08/13/23 Date of Service: 08/13/23 Chief Complaint: Increasing weakness HPI Narrative OLGA DONALDSON, is [id number] female history of GERD, COPD, hypertension, diabetes, chronic urinary retention with self cathing presented to [facility] 08/13/2023 with increasing generalized weakness and [...] No other acute complaints at this time. [facility] Medical History Anemia Anxiety Aortic stenosis Asthma [...] (Auto) 82.7 H, Lymph% (Auto) 9.4 L, Raleigh % (Auto) 6.1, Eos % (Auto) 0.1, [...] Sl. Cloudy, Urine pH 5.0, Ur Specific [place] 1.015, Urine Protein 30 H, Urine Glucose [...] Amaya MD Charges/Coding Visit Charges Inpatient E&M: 67319 Init Hosp L2 08/13/23 1447 <Electronically signed by Heydi Amaya MD> Cosigner Signature (if applicable): CC: Dr. Ramone Smiley MD; Dr. Heydi Amaya MD~ Signed [facility] Work Phone: 1([phone]) 556-958305-31-[address] Lockwood [facility] January 28, 2023 4:30pm Note Date/Time January 28, 2023 3:17p m [facility] Medical Records Department [address] [place] [address] Emergency Department Summary 01/28/23 MR#: [id number] Acct: [id number] Name: OLGA DONALDSON Rep #:[id number] : 1945 78 From: Joseph Lockwood MD [...] pain which she has every single day. [facility] Medical History Anemia Anxiety Aortic stenosis [...] unit/mL subcutaneous solution 22 unit SQ BID nhbxrtpy39/03/20 [History Last Taken Unknown] insulin detemir U-100 [...] % (Auto) 56.6 Lymph % (Auto) 34.2 Raleigh % (Auto) 5.6 Eos % (Auto) 2.6 [...] rhythm with a rate of 86. Normal [place] and QTc intervals. No ischemic changes. Interpreted [...] UNIT/ML solution 22 unit SQ BIDCM vitamin I-bxopfasqnclp-uhmyxch 500 MG tablet,chewable 250 mg PO DAILY Primary Care Provider: Ramone Smiley Referrals: Ramone Smiley MD [Primary Care Provider] - 3-5 Days Disposition Disposition: Home, Self Care What to do if you have Problems For any increased pain, shortness of breath, bleeding, nausea or vomiting, chestpain, or any unexpected problems, contact your Primary Care Provider. Call [facility] ([phone]) or report to the closest Emergency Room. Call 911 if necessary. 01/28/23 1630 <Electronically signed by Joseph Lockwood MD> Cosigner Signature (if applicable): CC: Dr. Ramone Smiley MD ~ Signed [facility] Work Phone: 1(271) 336-380709-07-2022 NoteHNO ID: [id number] Author: 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 APRN.FOOT CUTTER Service: ? Author Type: Nurse Practitioner Type: [...] an every 2-week basis for 4 cycles (CALGB-69085). Completed a year of trastuzumab 06/16/06. Referred back or anemia. Admitted to [facility] 12/02/2019 for chest pain with ambulation. [...] 1.00 - 4.00 k/uL 2.70 2.30 2.03 Raleigh% % 7.0 6.6 6.9 Abs [place] <0.87 k/uL 0.49 0.47 0.47 Eosin% % [...] loss - ICD9: 280.0, (more content not included)...[facility]09-07-2022 History of Present illness Narrative* 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, BLANCA.FOOT CUTTER - 05/07/2022 1:33 PM EDT Chief Complaint [...] an every 2-week basis for 4 cycles (CALGB-64578). Completed a year of trastuzumab 06/16/06. Referred back or anemia. Admitted to [facility] 12/02/2019 for chest pain with ambulation. [...] 1.00 - 4.00 k/uL 2.70 2.30 2.03 Raleigh% % 7.0 6.6 6.9 Abs [place] <0.87 k/uL 0.49 0.47 0.47 Eosin% % [...] visit. 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 APRN.MARLI [facility] Miscellaneous Notes* Telephone Encounter - Stacie Varner LPN - 02/10/2022 8:33 AM EDT Pt called and notified, pt voices understanding. Stacie Varner LPN * Telephone Encounter - Joseph Rolle DO - 02/10/2022 6:20 AM EDT Can let her know CBC and iron levels doing well. Follow up as scheduled. Joseph Rolle DO [facility]01-31-2022 Miscellaneous Notes* Telephone Encounter - Joseph [...] filed. Joseph Rolle DO documented [facility]07-15-2021 Miscellaneous Notes* Telephone Encounter - Marina [...] drive and will complete lab work and package pick up stool cards 03/21/2021, same day as iron [...] may have had one more recently at [facility]). Add on for 5 more doses of iron sucrose and repeat CBC/Iron studies about a month after completing. Joseph Rolle DO [facility] Author Eboni Chan [facility] December 30, 2023 2:23pm Note Date/Time December 30, 2023 2:24pm [facility] Medical Records Department [address] [place] [address] Counseling Note - Pharmacy 12/30/23 1423 MR#: [id number] Acct: [id number] Name: OLGA DONALDSON Rep #:[id number] : 1945 78 From: Eboni Chan PCP: Dr. Ramone Smiley MD Status:ADM IN [facility]: [facility] [id number] [place] Med Reconciliation Pharmacy Service has performed discharge [...] bisacodyl 10 mg rectal suppository 10 mg WV DAILY #0 ea 12/30/23 insulin glargine-yfgn 100 [...] Signature (if applicable): Date CC: ~ Signed [facility] Work Phone: Consult note Author Eboni Chan [facility] Note Date/Time January 24, 2025 2:52p m [facility] Medical Records Department [address] [place] [address] Counseling Note - Pharmacy 01/24/25 1451 MR#: [id number] Acct: [id number] Name: OLGA DONALDSON Rep #:[id number] : 1945 80 From: Eboni Chan PCP: Dr. Ramone Smiley MD Status:ADM IN Location: [place] [id number] Counseling Pharmacy Service has performed discharge [...] mg chewable tablet 81 mg PO DAILY [facility] 01/21/16 magnesium oxide 400 mg (241.3 [...] Signature (if applicable): Date CC: ~ Signed [facility] Work Phone: Discharge summary Author Sunny Bell [facility] December 30, 2023 2:14pm Note Date/Time December 30, 2023 2:05pm [facility] Medical Records Department [address] [place] [address] Transfer to [facility] MR#: [id number] Acct: [id number] Name: OLGA DONALDSON Rep #:[id number] : 1945 78 From: Sunny Blue PCP: Dr. Ramone Smiley MD Status:ADM IN Certification of patient admission REQUIRED AT TIME OF ADMISSION. I CERTIFY THAT POST-HOSPITAL ECF SERVICES ARE REQUIRED TO BE GIVEN ON AN IN-PATIENT BASIS BECAUSE OF THE ABOVE NAMED PATIENT'S NEED FOR ASSISTED CARE ON A CONTINUING BASIS FOR THE [...] Patient is a 78-year-old female who presented [facility] ED on 12/27/2023 with left hip [...] cousin over the phone who lives in [facility]. Patient is clinically doing well. Currently has Seran catheter 12/29: Dulcolax suppository ordered. Patient with [...] 0RF bisacodyl 10 mg Suppository 10 mg WV DAILY Qty: 0 0RF insulin glargine-yfgn 100 [...] Ramone Smiley MD [Primary Care Provider] - aGbriel Byrd MD [Med Staff - Active Staff] - Within 2 Weeks Disposition Disposition (needs filled in before D/C Order can be placed): [facility] Facility 12/30/23 1414 <Electronically signed by Sunny Bell MD> Cosigner Signature (if applicable): CC: Dr. Nestor Bartlett DO; Dr. Ramone Smiley MD; Dr. Gabriel Byrd MD ~ [facility] Work Phone: Discharge summary Author Sunny Bell [facility] December 30, 2023 2:26pm Note Date/Time December 30, 2023 2:21pm [facility] Medical Records Department [address] [place] [address] Discharge Summary 12/30/23 1414 MR#: [id number] Acct: [id number] Name: OLGA DONALDSON Rep #:[id number] : 1945 78 From: Sunny Blue PCP: Dr. Ramone Smiley MD Status:ADM IN [id number] Date of Admission: 12/27/23 Date of [...] Patient is a 78-year-old female who presented [facility] ED on 12/27/2023 with left hip [...] cousin over the phone who lives in [facility]. Patient is clinically doing well. Currently has [...] mg chewable tablet 81 mg PO DAILY [facility] 01/21/16 albuterol sulfate 90 mcg/actuation aerosol [...] bisacodyl 10 mg rectal suppository 10 mg WV DAILY #0 ea 12/30/23 insulin glargine-yfgn 100 [...] % (Auto) 63.9, Lymph % (Auto) 25.3, [place] % (Auto) 8.7, Eos % (Auto) 1.4, [...] 0RF bisacodyl 10 mg Suppository 10 mg WV DAILY Qty: 0 0RF insulin glargine-yfgn 100 [...] in before D/C Order can be placed): [facility] Facility Charges/Coding Visit Charges Inpatient E&M: 55521 Disch Hosp >30min 12/30/23 1426 <Electronically signed by Sunny Bell MD> Cosigner Signature (if applicable): CC: Dr. Ramone Smiley MD; Dr. Sunny Bell MD; Dr. Gabriel Byrd MD~ Signed [facility] Work Phone: Discharge summary Author Melba [facility] Note Date/Time January 24, 2025 1:27p m [facility] Medical Records Department [address] [place] [address] Instructions for Home/Discharge Instructions 01/24/25 1326 MR#: [id number] Acct: [id number] Name: OLGA DONALDSON Rep #:[id number] : 1945 80 From: Melba Hartmann MD [...] DO; Dr. Marcelina Soto MD ~ Signed [facility] Work Phone: Discharge summary Author [facility] Note Date/Time January 26, 2025 5:10a m [facility] Medical Records Department [address] [place] [address] Emergency Department Summary 01/26/25 MR#: [id number] Acct: [id number] Name: OLGA DONALDSON Rep #:[id number] : 1945 80 From: Jg Bryan DO [...] symptoms and therefore comes in for evaluation [facility] Medical History Fracture of hip, left, [...] mg tablet 25 mg PO BID BLOOD WV ESSURE 08/16/18 01/15/25 History pantoprazole 40 mg [...] cardiac dysrhythmia. Patient was kept on the color television console monitor and there was no dysrhythmia noted. [...] % (Auto) 65.0 Lymph % (Auto) 25.1 [place] % (Auto) 6.7 Eos % (Auto) 2.8 [...] the upper limits for size. Reading Location: [facility] Chest x-ray as interpreted by the [...] you have any further concerns Print Language: Turkish Disposition Disposition: Home, Self Care What to do if you have Problems For any increased pain, shortness of breath, bleeding, nausea or vomiting, chestpain, or any unexpected problems, contact your Primary Care Provider. Call [facility] ([phone]) or report to the closest Emergency Room. Call 911 if necessary. 01/26/25 0510 <Electronically signed by Jg Bryan DO> Cosigner Signature (if applicable): CC: Dr. Ramone Smiley MD ~ Signed [facility] Work Phone: Discharge summary Author Aj Holley [facility] Note Date/Time February 04, 2025 10:27 am [facility] Medical Records Department [address] [place] [address] Emergency Department Summary 02/04/25 MR#: [id number] Acct: [id number] Name: OLGA DONALDSON Rep #:[id number] : 1945 80 From: Aj Holley MD [...] of the couch, and has no pain. [facility] Medical History Elevated troponin Coronary artery [...] mg tablet 25 mg PO BID BLOOD [place] ESSURE 08/16/18 01/15/25 History pantoprazole 40 mg [...] DAILY 01/15/25 History 0.005 % [facility] psyllium husk 0.4 gram capsule 0.4 g [...] 75.4 H Lymph % (Auto) 15.7 L [place] % (Auto) 6.6 Eos % (Auto) 1.7 [...] MD [Primary Care Provider] - Print Language: Turkish What to do if you have Problems For any increased pain, shortness of breath, bleeding, nausea or vomiting, chestpain, or any unexpected problems, contact your Primary Care Provider. Call [facility] ([phone]) or report to the closest Emergency Room. [...] cc: Dr. Ramone Smiley MD ~* Signed [facility] Work Phone: Evaluation note* Diagnosis Onset Date Resolution Status Multiple thyroid nodules acu te Chronic renal failure, stage 3 (moderate) chronic Hypercalcemia chronic Abscess acute Abscess acute Abscess acute [facility] Work Phone: Evaluation note* Diagnosis Iron deficiency anemia due to chronic blood loss- Primary Iron deficiency anemia secondary to blood loss (chronic) [facility]* Diagnosis Onset Date Resolution Status Abscess acute Abscess acute Abscess acute Abscess acute Abscess acute Paronychia of left index finger acute [facility] Work Phone: Evaluation note* Diagnosis Iron deficiency anemia due to chronic blood loss- Primary Iron deficiency anemia secondary to blood loss (chronic) documented in this encounter [facility] note* Diagnosis Anemia, unspecified type- Primary documented in this encounter [facility] note* Diagnosis Iron deficiency anemia due to chronic blood loss- Primary Iron deficiency anemia secondary to blood loss (chronic) documented [facility] this [facility] noteNo assessment information [facility]WLanc[facility] Work Phone: Evaluation note* Diagnosis Onset Date Resolution Status Gastroenteritis acute [facility] Work Phone: Evaluation note* Diagnosis Onset Date Resolution Status Gastroenteritis acute [place] acute Weakness acute Asthma chronic COPD (chronic obstructive pulmonary disease) chronic GERD (gastroesophageal reflux disease) chronic History of malignant neoplasm of breast chronic Hypertension chronic Neurogenic bladder chronic Type 2 diabetes mellitus chr onic Acute hyponatremia resolved Acute UTI resolved LIA (acute kidney injury) re solved [facility] Work Phone: Evaluation note* Diagnosis Onset Date Resolution Status Fracture of hip, left, closed acute [facility] Work Phone: Evaluation note* Diagnosis Onset Date Resolution Status Falls acute Fracture of hip, left, closed acute Microcytic anemia acute Weakness acute Chronic renal failure, stage 3 (moderate) chronic Hypercalcemia chronic [facility] Work Phone: Evaluation note* Diagnosis Onset Date Resolution Status Gastroenteritis acute Acute hyponatremia acute Acute UTI acute LIA (acute kidney injury) ac jason [place] acute Weakness acute Asthma chronic COPD (chronic obstructive pulmonary disease) chronic GERD (gastroesophageal reflux disease) chronic History of malignant neoplasm of breast chronic Hypertension chronic Neurogenic bladder chronic Type 2 diabetes mellitus chr onic [facility] Work Phone: History and physical note Author Heydi Amaya [facility] August 13, 2023 2:47pm Note Date/Time August 13, 2023 2:33pm [facility] Medical Records Department [address] [place] [address] H&P Exam - Hospitalist 08/13/23 1431 MR#: [id number] Acct: [id number] Name: OLGA DONALDSON Rep #:[id number] : 1945 78 From: Heydi Amaya MD PCP: Dr. Ramone Smiley MD Status:ADM IN Location: [facility] COQ382- 1 HPI - General General Date of Admission: 08/13/23 Date of Service: 08/13/23 Chief Complaint: Increasing weakness HPI Narrative OLGA DONALDSON, is [id number] female history of GERD, COPD, hypertension, diabetes, chronic urinary retention with self cathing presented to [facility] 08/13/2023 with increasing generalized weakness and [...] No other acute complaints at this time. [facility] Medical History Anemia Anxiety Aortic stenosis Asthma [...] mg chewable tablet 81 mg PO DAILY [facility] 01/21/16 [History Last Taken 08/12/23] albuterol [...] (Auto) 82.7 H, Lymph% (Auto) 9.4 L, [place] % (Auto) 6.1, Eos % (Auto) 0.1, [...] Sl. Cloudy, Urine pH 5.0, Ur Specific [place] 1.015, Urine Protein 30 H, Urine Glucose [...] 11:04 EST Reading Location ID and State: [address] [place] [address] , Service support , Assessment & Plan [...] Amaya MD Charges/Coding Visit Charges Inpatient E&M: 26610 Init Hosp L2 08/13/23 2827 <Electronically signed by Heydi Amaya MD> Cosigner Signature (if applicable): CC: Dr. Ramone Smiley MD; Dr. Heydi Amaya MD~ Signed [facility] Work Phone: History and physical note Author Tono Kitchenak [facility] Note Date/Time February 09, 2025 3:52 pm [facility] Medical Records Department [address] [place] [address] H&P Exam - Hospitalist 02/09/25 1525 MR#: [id number] Acct: [id number] Name: OLGA DONALDSON Rep #:[id number] : 1945 80 From: Tono BHATTI PCP: [...] tightness, no dizziness or lightheadedness, no palpitations. [facility] Medical History COPD with exacerbation Anemia History [...] mg tablet 25 mg PO BID BLOOD WV ESSURE 08/16/18 01/15/25 History pantoprazole 40 mg [...] (Auto) 86.9 H, Lymph % (Auto) 7.3L, [place] % (Auto) 4.5, Eos % (Auto) 0.1, [...] degree of bibasilar linear atelectasis. Reading Location: [facility] Assessment & Plan Assessment/Plan (1) COPD exacerbation: [...] DAVY Dykes; Dr. Ramone Smiley MD~ Signed [facility] Work Phone: History and physical note Author Nestor Bartlett [facility] Note Date/Time February 15, 2025 2:57 pm [facility] Medical Records Department [address] [place] [address] H&P Exam - Hospitalist 02/15/25 1401 MR#: [id number] Acct: [id number] Name: OLGA DONALDSON Rep #:[id number] : 1945 80 From: Nestor roman DO PCP: Dr. Ramone Smiley MD Status:ADM JESS Location: [facility] KL043-3 HPI - General General Date of Admission: 02/15/25 Date of Service: 02/15/25 Chief Complaint: Shortness of breath, acute on chronic debility HPI Narrative OLGA DONALDSON, is a 80 F who presented to [facility] ED on 02/15/2025 with shortness of [...] currently. Will be admitted for further management. [facility] Medical History (Updated 02/15/25 @ 13:15 by [...] mg tablet 25 mg PO BID BLOOD WV ESSURE 08/16/18 01/15/25 History pantoprazole 40 mg [...] 82.5 H, Lymph % (Auto) 10.9 L, [place] % (Auto) 4.8, Eos % (Auto) 0.7, [...] evidence of acute cardiopulmonary process. Reading [facility] Assessment & Plan Assessment/Plan (1) Generalized weakness: PLAN: Plan Patient is an 80-year-old female who presented [facility] ED on 02/15/2025 with recurrent shortness of breath and acute on chronic debility. 1. Acute on chronic debility ? Admit under observation status to [facility]. PT/OT/case management consulted. Multiple recent hospitalizations for [...] 75 minutes. Charges/Coding Visit Charges Inpatient E&M: 28470 Init Hosp L3 02/15/25 5756 <Electronically signed by Nestor Bartlett DO> Cosigner Signature (if applicable): CC: Dr. Nestor Bartlett DO; Dr. Ramone Smiley MD~ Signed [facility] Work Phone: Hospital Discharge instructions Additional Instructions Chest x-ray negative. COVID, flu, RSV negative. Your glucose 321 the lab normal gap. You are given 10 units of short acting insulin. You were started on antibiotics and steroids. Your glucose will be elevated with the steroids. Continue insulin including your sliding scale. Next dose of antibiotics steroids is tomorrow. This was sent to [email or web address] Work Phone: Hospital Discharge instructions Additional Instructions Take medications as prescribed. Follow-up your doctor in outpatient setting. Return with worsening symptoms or concerns.[facility] Work Phone: Hospital Discharge instructions Additional [...] the ER should you have any further concernsWLancaster [facility] Work Phone: Hospital Discharge instructions Additional Instructions Continue your steroids and your nebulizer treatments as previously directed. Your chest x-ray did not show pneumonia today. Continue to wear your nasal cannula oxygen.[facility] Work Phone: Hospital Discharge instructionsAdditional Instructions Follow-up with your doctor in outpatient setting. Follow-up and urine culture. Take antibiotic as prescribed sent to your pharmacy. Urinalysis did show evidence of infection. Take MiraLAX twice daily until you are having good bowel movements then you can reduce to once daily. Return with any other concerns or worsening symptomsWLancaster [facility] Hospital Work Phone: Reason for referral (narrative)No reason for referral information availableWLancaster Municipal Hospital Work Phone: Summary Purpose Family History [...] Yes December 02, 2021 8:47am Power of [employer] Solutions Consultant Yes December 02 8:47am Documents on File Type Date Recorded Patient Broacher Expl anation Advance Directive(s) 05/12/2016 10:06 AM Advance Directive(s) 04/30/2016 11:10 AM Advance Directive(s) 02/19/2016 5:55 AM Advance Directive(s) 02/14/2016 3:07 PM Advance Directive Response Recorded Date/ Time Advance Directives Yes December 02 7:47am Living Will Yes July 14, 2 022 2:52pm Power of [employer] Consultant Yes July 14, 2022 2:52pm Name of Medical Power of Sr Solutions Consultant son July 14, 2022 2:52pm Advance Directive Response Recorded Date/ Time Advance Directives Yes December 02 8:47am Living Will Yes July 14, 2 022 3:52pm Power of [employer] Consultant Yes July 14, 2022 3:52pm Advance Directive Response Recorded Date/ Time Name of Medical Power of Sr Solutions Consultant SHANTELLE January 28, 2023 3:11pm Advance Directives Yes December 02 8:47am Living Will Yes January 28, 2023 3 :11pm Power of [employer] Solutions Consultant Yes January 28, 2023 3:11pm Advance Directive Response Recorded Date/ Time Name of Medical Power of Sr Solutions Consultant Ursula Anika July 18, 2023 11:35pm Advance Directives Yes December 02 7:47am Living Will Yes July 18, 023 11:35pm Power of Sr Solutions Consultant Yes July 18, 2023 11:35pm Advance Directive Response Recorded Date/ Time Name of Medical Power of Sr Solutions Consultant . August 07, 2023 9:45pm Advance Directives Yes December 02 7:47am Living Will No August 13 023 3:22pm Power of Sr Solutions Consultant No August 13, 2023 3:22pm Name of Medical Power of Sr Solutions Consultant Ursula Donaldson July 18, 2023 11:35pm Advance Directive Response Recorded Date/ Time Advance Directives Yes December 02 8:47am Living Will No August 13 023 4:22pm Power of Sr Solutions Consultant No August 13, 2023 4:22pm Advance Directive Response Recorded Date/ Time Advance Directives Yes December 02 8:47am Living Will No December 27, 2023 11:02pm Power of Sr Solutions Consultant No December 26 11:02pm Advance Directive Response Recorded Date/ Time Advance Directives Yes December 02 8:47am Living Will No December 28, 2023 12:27am Power of Sr Solutions Consultant No December 27 12:27am Advance Directive Response Recorded Date/ Time Name of Medical Power of Sr Solutions Consultant . August 07, 2023 9:45pm Advance Directives Yes December 02 7:47am Living Will No August 13 023 11:05am Power of Sr Solutions Consultant No August 13, 2023 11:05am Name of Medical Power of Sr Solutions Consultant Ursula Donaldson July 18, 2023 11:35pm Advance Directive Response Recorded Date/ Time Do you have a Healthcare Power of Sr Solutions Consultant? No January 07, 2025 3:00pm Advance Directives Yes December 02 8:47am Advance Directive Response Recorded Date/ Time Do you have a Healthcare Power of Sr Solutions Consultant? No January 15, 2025 2:24pm Do you have a Healthcare Power of Sr Solutions Consultant? No January 07, 2025 3:00pm Advance Directives Yes December 02 8:47am Advance Directive Response Recorded Date/ Time Do you have a Healthcare Power of Sr Solutions Consultant? No January 15, 2025 2:24pm Do you have a Healthcare Power of Sr Solutions Consultant? No January 20, 2025 4:39am Do you have a Healthcare Power of Sr Solutions Consultant? No January 07, 2025 3:00pm Advance Directives Yes December 02 8:47am Advance Directive Response Recorded Date/ Time Do you have a Healthcare Power of Sr Solutions Consultant? No January 15, 2025 2:24pm Do you have a Healthcare Power of Sr Solutions Consultant? No January 20, 2025 4:39am Do you have a Healthcare Power of Sr Solutions Consultant? No January 07, 2025 3:00pm Do you have a Healthcare Power of Sr Solutions Consultant? No January 26, 2025 3:01am Advance Directives Yes December 02 8:47am Advance Directive Response Recorded Date/ Time Do you have a Healthcare Power of Sr Solutions Consultant? No January 15, 2025 2:24pm Do you have a Healthcare Power of Sr Solutions Consultant? No January 20, 2025 4:39am Do you have a Healthcare Power of Sr Solutions Consultant? Yes February 04, 2025 6:32am Name of Medical Power of Sr Solutions Consultant February 04, 2025 6:32am Do you have a Healthcare Power of Sr Solutions Consultant? No January 07, 2025 3:00pm Do you have a Healthcare Power of Sr Solutions Consultant? No January 26, 2025 3:01am Advance Directives Yes December 02 8:47am Advance Directive Response Recorded Date/ Time Do you have a Healthcare Power of Sr Solutions Consultant? No January 15, 2025 2:24pm Do you have a Healthcare Power of Sr Solutions Consultant? No January 20, 2025 4:39am Do you have a Healthcare Power of Sr Solutions Consultant? Yes February 04, 2025 12:35pm Name of Medical Power of Sr Solutions Consultant February 04, 2025 6:32am Do you have a Healthcare Power of Sr Solutions Consultant? No January 07, 2025 3:00pm Do you have a Healthcare Power of Sr Solutions Consultant? No January 26, 2025 3:01am Advance Directives Yes December 02 8:47am Advance Directive Response Recorded Date/ Time Do you have a Healthcare Power of Sr Solutions Consultant? No January 15, 2025 2:24pm Do you have a Healthcare Power of Sr Solutions Consultant? No January 20, 2025 4:39am Do you have a Healthcare Power of Sr Solutions Consultant? Yes February 04, 2025 12:35pm Name of Medical Power of Sr Solutions Consultant February 04, 2025 6:32am Do you have a Healthcare Power of Sr Solutions Consultant? Yes February 09, 2025 12:01pm Name of Medical Power of Sr Solutions Consultant ursula lees jr February 09, 2025 12:01pm Do you have a Healthcare Power of Sr Solutions Consultant? No January 07, 2025 3:00pm Do you have a Healthcare Power of Sr Solutions Consultant? No January 26, 2025 3:01am Advance Directives Yes December 02 8:47am Advance Directive Response Recorded Date/ Time Do you have a Healthcare Power of Sr Solutions Consultant? No January 15, 2025 2:24pm Do you have a Healthcare Power of Sr Solutions Consultant? No January 20, 2025 4:39am Do you have a Healthcare Power of Sr Solutions Consultant? Yes February 04, 2025 12:35pm Name of Medical Power of Sr Solutions Consultant February 04, 2025 6:32am Do you have a Healthcare Power of Sr Solutions Consultant? Yes February 09, 2025 4:43pm Name of Medical Power of Sr Solutions Consultant ursula lees jr February 09, 2025 4:43pm Do you have a Healthcare Power of Sr Solutions Consultant? No January 07, 2025 3:00pm Do you have a Healthcare Power of Sr Solutions Consultant? No January 26, 2025 3:01am Advance Directives Yes December 02 8:47am Advance Directive Response Recorded Date/ Time Do you have a Healthcare Power of Sr Solutions Consultant? No January 15, 2025 2:24pm Do you have a Healthcare Power of Sr Solutions Consultant? No January 20, 2025 4:39am Do you have a Healthcare Power of Sr Solutions Consultant? Yes February 04, 2025 12:35pm Name of Medical Power of Sr Solutions Consultant February 04, 2025 6:32am Do you have a Healthcare Power of Sr Solutions Consultant? Yes February 09, 2025 4:43pm Name of Medical Power of Sr Solutions Consultant ursula lees jr February 09, 2025 4:43pm Do you have a Healthcare Power of Sr Solutions Consultant? Yes February 15, 2025 8:36am Do you have a Healthcare Power of Sr Solutions Consultant? No January 07, 2025 3:00pm Do you have a Healthcare Power of Sr Solutions Consultant? No January 26, 2025 3:01am Advance Directives Yes December 02 8:47am Advance Directive Response Recorded Date/ Time Do you have a Healthcare Power of Sr Solutions Consultant? No January 15, 2025 2:24pm Do you have a Healthcare Power of Sr Solutions Consultant? No January 20, 2025 4:39am Do you have a Healthcare Power of Sr Solutions Consultant? Yes February 04, 2025 12:35pm Name of Medical Power of Sr Solutions Consultant February 04, 2025 6:32am Do you have a Healthcare Power of Sr Solutions Consultant? Yes February 09, 2025 4:43pm Name of Medical Power of Sr Solutions Consultant ursula teo bradshaw February 09, 2025 4:43pm Do you have a Healthcare Power of Sr Solutions Consultant? Yes February 15, 2025 3:20pm Do you have a Healthcare Power of Sr Solutions Consultant? No January 07, 2025 3:00pm Do you have a Healthcare Power of Sr Solutions Consultant? No January 26, 2025 3:01am Advance Directives Yes December 02 8:47am Advance Directive Response Recorded Date/ Time Do you have a Healthcare Power of Sr Solutions Consultant? No January 15, 2025 2:24pm Do you have a Healthcare Power of Sr Solutions Consultant? No January 20, 2025 4:39am Do you have a Healthcare Power of Sr Solutions Consultant? Yes February 04, 2025 12:35pm Name of Medical Power of Sr Solutions Consultant February 04, 2025 6:32am Do you have a Healthcare Power of Sr Solutions Consultant? Yes February 09, 2025 4:43pm Name of Medical Power of Sr Solutions Consultant ursula staceymarcy February 09, 2025 4:43pm Do you have a Healthcare Power of Sr Solutions Consultant? Yes February 15, 2025 3:20pm Do you have a Healthcare Power of Sr Solutions Consultant? No January 07, 2025 3:00pm Do you have a Healthcare Power of Sr Solutions Consultant? No January 26, 2025 3:01am Do you have a Healthcare Power of Sr Solutions Consultant? Yes February 18, 2025 8:56pm Advance Directives Yes December 02 8:47am Advance Directive Response Recorded Date/ Time Do you have a Healthcare Power of Sr Solutions Consultant? No January 15, 2025 2:24pm Do you have a Healthcare Power of Sr Solutions Consultant? No January 20, 2025 4:39am Do you have a Healthcare Power of Sr Solutions Consultant? Yes February 04, 2025 12:35pm Name of Medical Power of Sr Solutions Consultant February 04, 2025 6:32am Do you have a Healthcare Power of Sr Solutions Consultant? Yes February 09, 2025 4:43pm Name of Medical Power of Sr Solutions Consultant ursula lees jr February 09, 2025 4:43pm Do you have a Healthcare Power of Sr Solutions Consultant? Yes February 15, 2025 3:20pm Do you have a Healthcare Power of Sr Solutions Consultant? No January 07, 2025 3:00pm Do you have a Healthcare Power of Sr Solutions Consultant? No January 26, 2025 3:01am Do you have a Healthcare Power of Sr Solutions Consultant? Yes February 18, 2025 8:56pm Do you have a Healthcare Power of Sr Solutions Consultant? Yes March 04, 2025 6:52pm Advance Directives [...] sob January 26, 2025 3:00a m S/P [facility] 01/24 (PCU) January 31, 2025 1:42p [...] sob January 26, 2025 3:00a m S/P [facility] 01/24 (PCU) January 31, 2025 1:42p [...] sob January 26, 2025 3:00a m S/P [facility] 01/24 (PCU) January 31, 2025 1:42p [...] sob January 26, 2025 3:00a m S/P [facility] 01/24 (PCU) January 31, 2025 1:42p [...] sob January 26, 2025 3:00a m S/P [facility] 01/24 (PCU) January 31, 2025 1:42p [...] sob January 26, 2025 3:00a m S/P [facility] 01/24 ([facility]) January 31, 2025 1:42p m HYPOXIA, [...] sob January 26, 2025 3:00a m S/P [facility] 01/24 ([facility]) January 31, 2025 1:42p m HYPOXIA, [...] sob January 26, 2025 3:00a m S/P [facility] 01/24 (PCU) January 31, 2025 1:42p [...] sob January 26, 2025 3:00a m S/P [facility] 01/24 (PCU) January 31, 2025 1:42p [...] sob January 26, 2025 3:00a m S/P [facility] 01/24 (U) January 31, 2025 1:42p [...] sob January 26, 2025 3:00a m S/P [facility] 01/24 (PCU) January 31, 2025 1:42p [...] and content) DATE CREATED AUTHOR 02/25/2018 [facility] DATE CREATED AUTHOR AUTHOR'S ORGANIZ ATION 05/08/2022 [facility] DATE CREATED AUTHOR AUTHOR'S ORGANIZ ATION 03/18/2025 Jaquelin [facility] y [facility] Goals (unrecognized section and content) Goals [...] or prosecute any alcohol or drug abuse patient.[facility] the event this information is protected by the Federal Confidentiality of Alcohol and Drug Abuse Patient Records regulations: The Federal rules restrict any use of the information to criminally investigate or prosecute any alcohol or drug abuse patient.[facility] HospitalIn the event this information is protected by the Federal Confidentiality of Alcohol and Drug Abuse Patient Records regulations: The Federal rules restrict any use of the information to criminally investigate or prosecute any alcohol or drug abuse patient.[facility] Hospital[facility] the event this information is protected by the Federal Confidentiality of Alcohol and Drug Abuse Patient Records regulations: The Federal rules restrict any use of the information to criminally investigate or prosecute any alcohol or drug abuse patient.[facility] HospitalIn the event this information is protected by the Federal Confidentiality of Alcohol and Drug Abuse Patient Records regulations: The Federal rules restrict any use of the information to criminally investigate or prosecute any alcohol or drug abuse patient.[facility] Care Teams (unrecognized sec tion and [...] 2025 End: January 07, 2025 Dr. Ethan aDrnell DO Attending Provider Active Start : January [...] January 26, 2025 End: January 26, 2025 Regulation Supervisor Relationship Specialty Start Date End Date Ramone Smiley MD PCP - General Family Practice 08/16/15 Regulation Supervisor Relationship Specialty Start Date End Date Ramone Smiley MD PCP - General Family Practice 08/16/15 Regulation Supervisor Relationship Specialty Start Date End Date Ramone Smiley MD PCP - General Family Practice 08/16/15 Regulation Supervisor Relationship Specialty Start Date End Date Ramone Smiley MD PCP - General Family Practice 08/16/15 Regulation Supervisor Relationship Specialty Start Date End Date Ramone [...] 2025 End: January 31, 2025 Whitney Cao BARREL ENDSHAKER ADJUSTER, BARREL ENDSHAKER ADJUSTER-C Attending Provider Active Start: January 31, 2025 [...] End: January 31, 2025 Whitney Cao NP, BARREL ENDSHAKER ADJUSTER-C Attending Provider Active Start: January 31, 2025 [...] Active Start: February 12, 2025 Dr. Lucio oBrden DO Other Provider Active S tart: February [...] 15, 2025 End: February 17, 2025 Dr. Heyid Amaya MD Attending Provider Active Start: February [...] Active Start: March 07, 2025 Whitney Cao BARREL ENDSHAKER ADJUSTER, BARREL ENDSHAKER ADJUSTER-C Attending Provider Active Start: March 07, 2025 Whitney Cao BARREL ENDSHAKER ADJUSTER, BARREL ENDSHAKER ADJUSTER-C Referring Provider Active Start: March 07, 2025 [...] 2025 End: March 07, 2025 Whitney Cao BARREL ENDSHAKER ADJUSTER, BARREL ENDSHAKER ADJUSTER-C Attending Provider Active Start: March 07, 2025 End: March 07, 2025 Whitney Cao BARREL ENDSHAKER ADJUSTER, BARREL ENDSHAKER ADJUSTER-C Referring Provider Active Start: March 07, 2025 End: March 07, 2025 Team Status: Active Member Role/Relationship Status Dates Dr. Ramone Smiley MD Primary Care Provider Active Start: March 07, 2025 Whitney Cao BARREL ENDSHAKER ADJUSTER, BARREL ENDSHAKER ADJUSTER-C Referring Provider Active Start: March 07, 2025 Whitney Cao BARREL ENDSHAKER ADJUSTER, BARREL ENDSHAKER ADJUSTER-C Other Provider Active Sta rt: March 07, 2025 Dr. Se Good MD Attending Provider Active S tart: March 07, 2025 Team Status: Active Member Role/Relationship Status Dates Dr. Ramone Smiley MD Primary Care Provider Active Start: March 09, 2025 Whitney Cao BARREL ENDSHAKER ADJUSTER, BARREL ENDSHAKER ADJUSTER-C Attending Provider Active Start: March 09, 2025 [...] BE BASED ON THE PRIMARY CLINICAL RECORDS. [facility]. provides no warranty or guarantee of the accuracy or completeness of information in this document.
[2025-03-22] MEDS: 0.9% Normal Saline (1000mL) 1,000 ML 100 ML IV (00:50)
[2025-03-22] MEDS: Arthritis Pain Compound 60 CLICK TUBE TOPICAL ×3 (01:12→22:52)
[2025-03-22] MEDS: Polyethylene Glycol 3350 17 GM PACKET PO ×2 (01:13→09:47)
[2025-03-22 06:00] LABS: Differential Indicated SCAN CRITERIA MET; Hematocrit 30.9 % (37-47); Hemoglobin 9.4 g/dL (12.0-15.0); Immature Granulocytes Count 0.080 X10^3/uL (0.0-0.0); Mean Corp Hgb Conc 30.4 g/dL (32-36); Mean Corpuscular Volume 90.6 fL (81-99); Mean Platelet Vol. 11.1 fl (6.2-12.0); NRBC Flagged by Analyzer 0 % (0-5); POSITIVE COUNT YES; Platelet Count 193 K/mm3 (150-450); RBC Distribution Width CV 16.6 % (11.6-14.6); RBC Distribution Width SD 54.9 fl (35.1-43.9); Red Blood Count 3.41 M/mm3 (4.2-5.4); White Blood Count 7.0 K/mm3 (4.4-11.0)
[2025-03-22 06:12] LABS: AST(SGOT) 19 U/L (<=31); Alanine Aminotransfer ALT/SGPT 8 U/L (<=34); Albumin, Serum 3.0 g/dL (3.4-4.8); Alkaline Phosphatase 68 U/L (35-104); Anion Gap 10 (5-15); BUN 17 mg/dL (4-19); BUN/Creat Ratio 18.4 RATIO (10-20); Calcium,Total 10.0 mg/dL (7.6-11.0); Carbon Dioxide 25.4 mmol/L (21.0-32.0); Chloride 100 mmol/L (98-108); Estimated Creatinine Clearance 44.58 ml/min (50-250); Globulin 3.1 g/dL (2.2-4.2); Glucose 144 mg/dL (70-99); Potassium 4.2 mmol/L (3.3-5.1)
[2025-03-22 06:59] LABS: Differential Comment SCANNED
[2025-03-22] MEDS: Glucerna Shake 120 ML LIQUID PO (09:40)
[2025-03-22] MEDS: Insulin Glargine-YFGN 100 UNIT/ML Pen 20 UNIT SC ×2 (09:42→23:03)
[2025-03-22] MEDS: SACUBITRIL/VALSARTAN 24/26 MG TABLET 1 EACH PO ×2 (09:43→22:54)
[2025-03-22] MEDS: Azelastine HCl NASAL.SRY 2 SPRAY NASAL ×2 (09:44→22:52)
[2025-03-22] MEDS: Potassium Chloride Oral Tablet 20 MEQ PO ×2 (09:44→17:05)
[2025-03-22] MEDS: ROFLUMILAST 500 MCG TABLET PO (09:44)
[2025-03-22] MEDS: MethylPREDNISolone DosePak 4 MG BOX PO ×4 (09:45→22:55)
[2025-03-22] MEDS: Psyllium 1 PACKET PO (09:47)
--- NOTE | 2025-03-22 11:45 | CASEMGMT ---
SHAWANDA BURROUGHS Assessment Face to Face with patient for initial transition planning/care coordination assessment. SHAWANDA BURROUGHS introduced self and role at [facility], pt voices understanding. Pt is A&Ox4 and is resting comfortably in the chair and is calm. Care providers, pharmacy, and demographics verified. Admitting dx: Intractable Back Pain, UTI LACE Strata: 3 PCP: Ramone Smiley Specialists: Gabriele (Eye), Silvio (Urology) Preferred Pharmacy: [facility] Insurance: [employer] Prescription Benefit: Yes LNOK: Sarita Pollard (H), Sarita Erazo (Son) Living Arrangements: Pt lives with her and son in a 2 story duplex with a flat entrance ADLs/IADLs: Pt states that she requires assistance and that her son is able to provide this assistance for her. Transportation: Son DME: Home oxygen through [employer]. Verified the pt's current order states 2lpm w/rest, 3lpm w/exertion via nc. Pt states that she has a concentrator, portable tanks (Son can bring in if needed), and a nebulizer. Pt educated on purchasing options for a pulse oximeter. Pt also states that she has a CBGM with sufficient sensors. Pt states that she has sufficient pen needles for insulin shots. Pt states that she has a backup BGM with sufficient lancets, EtOH swabs, and test strips. Pt also has an extended tub bench, grab bars, raised TS, FWW, and WC. Pt states that she self caths at home and has enough equipment currently. Pt's son reports that he will be bringing supplies into the hospital today. Pt states that the has been providing these supplies. HHC/SNF: Recent hx @ [facility]. Hx with [facility]. Pt states that she is active with [facility] and wishes to continue their services. Referral sent to [facility] via [facility]. [facility] states that the pt is active with SN, PT, and [employer] and can resume care if needed. Pt?s goal: Return to PLOF Plan: TBD. Anticipate SNF vs return home with [facility], follow for updated oxygen needs. At the time of assessment, 6-Click score is 18. PT/OT/ST pending. Pt states that she prefers to return home @ the time of DC but would be open to a short term SNF stay if warranted. At this time, the pt denies [facility] or [facility]. Pt states that she would prefer [facility] as her first choice. Pt denies further questions or concerns now. Report given to MS3 SHAWANDA BURROUGHS. CM to follow. Cris Núñez RN CM
--- NOTE | 2025-03-22 12:31 | CASEMGMT ---
SHAWANDA BURROUGHS NOTE: Call received from Jennifer @ [facility]. She is aware pt has been admitted to [facility]. Pt is active w/them for SN, PT, and OT. Mery LAYTON RN, CM
--- NOTE | 2025-03-22 13:28 | NURSING ---
eye drops from home sent to [facility] for verification
--- NOTE | 2025-03-22 14:26 | NURSING ---
This RN is aware of Vital Signs obtained at 1230 and focused assessment recently done.
--- NOTE | 2025-03-22 14:28 | PN_ITS ---
Subjective Subjective Patient seen and examined with her nurse by her bedside. She complained of jeanne rectal pain. Her back pain had improved. Review of systems is otherwise negative. She is on 2L of oxygen which is her baseline. Objective Data Objective Data Vital Signs: Vital Signs Temp Pulse Resp BP Pulse Ox O2 Del Method O2 Flow Rate 98.6 F 98 18 109/41 L 98 Nasal Cannula 2 03/22/25 12:30 03/22/25 13:00 03/22/25 12:30 03/22/25 12:30 03/22/25 12:30 03/22/25 12:30 03/22/25 12:30 Oxygen Flow Rate (L/min) 2 Oxygen Delivery Method Nasal Cannula Weight: 154 lb 12.232 oz Body Mass Index (BMI) 27.4 Intake & Output: Intake and Output for Last 24 Hours 03/20/25 03/21/25 03/22/25 23:59 23:59 23:59 Intake Total 1850 / 1850 Output Total 400 / 400 Balance 1450 / 1450 Medical Nutrition Assessment Dietitian: Malnutrition Criteria Met Start: 03/22/25 12:40 Freq: Status: Active Protocol: Document 03/22/25 12:41 RMA (Rec: 03/22/25 12:41 RMA [id number]) Nutrition Malnutrition Evidence of Yes Malnutrition Exists Malnutrition (severe Chronic ): Evidenced By Suboptimal Energy Intake (Severe),Weight Loss (Severe) Clinical Problem Chronic Disease or Condition Related Malnutrition Etiology severe protein-calorie malnutrition in the context of chronic disease and debility related to inadequate oral intake and increased energy expenditure Signs/Symptoms as evidenced by ~6% unintentional weight loss x past 1 month, PO meeting less than 75% estimated nutrition needs Status Active Problem Recommendation Dietitian Will adjust diet to 2000 calorie; consistent Recommendations/ carbohydrate. Changes Will continue 120mL glucerna shake 3 times per day with medpas. Will add extra 1-2 oz meat/protein Q meal as tolerated. Will trend weights closely as available. Lab / Micro Data 03/22/25 05:09 03/22/25 05:09 Labs: Laboratory Results - last 24 hr 03/21/25 15:05: Urine Color Yellow, Urine Clarity Sl. Cloudy, Urine pH 7.0, Ur Specific [place] 1.010, Urine Protein 30 H, Urine Glucose (UA) 1000 H, Urine Ketones Negative, Urine Occult Blood 50 H, Urine Nitrite Negative, Urine Bilirubin Negative, Urine Urobilinogen Normal, Ur Leukocyte Esterase 500 H, Urine RBC 0-5 SEEN, Urine WBC >100 SEEN, Ur Squamous Epith Cells 0-5 SEEN, Urine Bacteria 1+, Urine Mucus 0 SEEN, Urine Yeast 1+ 03/21/25 17:55: WBC 8.4, RBC 3.59 L, Hgb 9.7 L, Hct 31.3 L, MCV 87.2, MCH 27.0, MCHC 31.0 L, RDW Std Deviation 52.5 H, RDW Coeff of Vijay 16.4 H, Plt Count 304, MPV 11.1, Immature Gran % (Auto) 0.500, Neut % (Auto) 62.3, Lymph % (Auto) 27.1, [place] % (Auto) 8.6, Eos % (Auto) 0.8, Baso % (Auto) 0.7, Absolute Neuts (auto) 5.2, Absolute Lymphs (auto) 2.26, Nucleated RBC % 0, Sodium 137, Potassium 4.4, Chloride 98, Carbon Dioxide 26.4, Anion Gap 13, BUN 18, Creatinine 1.00, Estim Creat Clear Calc 41.62 L, Est GFR (MDRD) Non-Af 57 L, BUN/Creatinine Ratio 18.2, Glucose 128 H, Calcium 10.5 03/21/25 19:12: POC Glucose 114 H 03/22/25 01:03: POC Glucose 139 H 03/22/25 05:09: WBC 7.0, RBC 3.41 L, Hgb 9.4 L, Hct 30.9 L, MCV 90.6, MCH 27.6, MCHC 30.4 L, RDW Std Deviation 54.9 H, RDW Coeff of Vijay 16.6 H, Plt Count 193, MPV 11.1, Immature Gran % (Auto) 1.100 H, Neut % (Auto) 65.3, Lymph % (Auto) 24.0, [place] % (Auto) 8.0, Eos % (Auto) 0.9, Baso % (Auto) 0.7, Absolute Neuts (auto) 4.6, Absolute Lymphs (auto) 1.69, Nucleated RBC % 0, Differential Comment SCANNED, Sodium 135, Potassium 4.2, Chloride 100, Carbon Dioxide 25.4, Anion Gap 10, BUN 17, Creatinine 0.93, Estim Creat Clear Calc 44.58 L, Est GFR (MDRD) Non- Af 62, BUN/Creatinine Ratio 18.4, Glucose 144 H, Calcium 10.0, Total Bilirubin 0.21, AST 19, ALT 8, Alkaline Phosphatase 68, Total Protein 6.1, Albumin 3.0 L, Globulin 3.1, Albumin/Globulin Ratio 1.0 03/22/25 12:55: POC Glucose 131 H Micro: Microbiology 03/21/25 15:05 Urine Catheter - Catheter Urine Culture - Preliminary Gram positive organism Radiography Diagnostic Testing: Radiology Impression Lumbar Spine CT 03/21/25 18:00 IMPRESSION: No acute fracture or malalignment. Multilevel spondylotic changes as described, similar to prior exam, with moderate-advanced spinal canal and bilateral neural foraminal narrowing at L3-4, L4-5, and L5-S1. Additional ancillary findings as noted, discussed separately in the abdominal CT report. Reading Location: [facility] Abdomen/Pelvis CT 03/21/25 18:02 IMPRESSION: 1. Similar patchy airspace consolidation in the bilateral lung bases, suggesting aspiration. 2. Moderate colonic stool burden with persistent mild distention and wall thickening of the rectal vault, suggesting chronic constipation and stercoral proctitis, although less pronounced from prior exam. 3. Multiple additional non-acute ancillary findings, as described above. Reading Location: [facility] Physical Exam Const alert, oriented x3 and no apparent distress General Appearance: cooperative and well developed HEENT normocephalic, head/scalp atraumatic, moist oral mucous membranes and oropharynx normal Eyes PERRL and EOMs intact bilaterally Neck no lymphadenopathy and supple Lymph Lymphatic: no lymphedema noted Resp Resp Narrative: milldy diminished breath sounds bibasally, no wheezes or crackles. On 2L of oxygen by nasal canula. Cardio regular rate, regular rhythm, S1 normal heart sound, S2 normal heart sound and no murmurs GI normal to inspection, nondistended, normoactive bowel sounds, soft to palpation, non-tender and non-distended Extremity normal capillary refill, no clubbing, cyanosis or edema and no calf tenderness General Extremity: no tenderness to palpation of joints or extremities Skin General Skin Exam: no breakdown Neuro CN's II-XII intact bilaterally, no focal motor deficits and no sensory deficits noted Motor Exam: strength 5/5 throughout and general weakness Psych thought process normal, cooperative and affect normal Appearance: appropriate Assessment & Plan Assessment/Plan (1) Acute UTI: (2) COPD exacerbation: PLAN: Plan #Acute intractable pain with debility and failure to thrive * PT/OT on board. Fall precautions. * PO tylenol, tizanidine and IV toradol prn. * $Acute UTI * has a chronic neurogenic bladder and self catheterizes. * most recent cultures positive for Enterococcus so patient on IV levaquin * urine cultures pending. #Probable atelectasis * CT chest showed atypical patchy airspace in bilateral posterior medial lung bases more pronounced on the left. This was similar to previous Chest CT * speech therapy on board * aspiration precautions. * #Chronic hypoxic respiratory failure due to COPD and asthma * on 2L of oxygen by nasal canula * on roflumilast. * breathing treatment with bronchodilators. * # History of left-sided breast cancer: S/p lumpectomy in 2003 #Type 2 diabetes mellitus with neuropathy: On Lantus as well as sitagliptin empagliflozin the last tirzepatide. Insulin sliding scale. Accu-Cheks ACHS. #Benign essential hypertension: On carvedilol. IV hydralazine as needed #History of multinodular goiter: Stable #Glaucoma: On netarsudil latanoprost eyedrops DVT prophylaxis: heparin. Charges/Coding Visit Charges Inpatient E&M: 95669 Subs Hosp L2
[2025-03-22] MEDS: 0.9% Saline Lock 10 ML Syringe IV ×2 (14:35→23:11)
--- NOTE | 2025-03-22 14:49 | NURSING ---
Assisted to bathroom at this time to st. cath herself. Offered pain medication, pt denies need for prn pain med.
[2025-03-22] MEDS: NETARSUDIL MESYLAT/LATANOPROST 2.5 ML DROPS 1 DRP EACH EYE (22:57)
[2025-03-23] VITALS (9 sets, daily range): BP systolic 96–137; BP diastolic 42–59; PULSE 79–118; RESP 16–22; TEMP 36.6–36.8; O2SAT 96–100; BMI 28.6
[2025-03-23 05:48] LABS: Hematocrit 28.0 % (37-47); Hemoglobin 8.8 g/dL (12.0-15.0); Immature Granulocytes Count 0.040 X10^3/uL (0.0-0.0); Mean Corp Hgb Conc 31.4 g/dL (32-36); Mean Corpuscular Volume 85.9 fL (81-99); Mean Platelet Vol. 10.7 fl (6.2-12.0); NRBC Flagged by Analyzer 0 % (0-5); Platelet Count 274 K/mm3 (150-450); RBC Distribution Width CV 16.0 % (11.6-14.6); RBC Distribution Width SD 50.8 fl (35.1-43.9); Red Blood Count 3.26 M/mm3 (4.2-5.4); White Blood Count 7.4 K/mm3 (4.4-11.0)
[2025-03-23 06:13] LABS: Anion Gap 8 (5-15); BUN 19 mg/dL (4-19); BUN/Creat Ratio 15.2 RATIO (10-20); Calcium,Total 10.2 mg/dL (7.6-11.0); Carbon Dioxide 26.0 mmol/L (21.0-32.0); Chloride 98 mmol/L (98-108); Estimated Creatinine Clearance 33.86 ml/min (50-250); Glucose 198 mg/dL (70-99); Potassium 5.8 mmol/L (3.3-5.1)
[2025-03-23] MEDS: 0.9% Saline Lock 10 ML Syringe IV ×3 (06:31→21:30)
[2025-03-23] MEDS: MethylPREDNISolone DosePak 4 MG BOX PO ×4 (08:26→21:17)
[2025-03-23] MEDS: Arthritis Pain Compound 60 CLICK TUBE TOPICAL ×2 (08:28→21:09)
[2025-03-23] MEDS: ROFLUMILAST 500 MCG TABLET PO (08:28)
[2025-03-23] MEDS: Insulin Glargine-YFGN 100 UNIT/ML Pen 20 UNIT SC ×2 (08:29→21:15)
[2025-03-23] MEDS: Azelastine HCl NASAL.SRY 2 SPRAY NASAL ×2 (08:29→21:09)
--- NOTE | 2025-03-23 13:28 | PN_ITS ---
Subjective Subjective Patient seen and examined with her nurse by her bedside. She had no active complaints and had an uneventful night. Review of systems otherwise negative. Her potassium is elevated at 5.8 today. Objective Data Objective Data Vital Signs: Vital Signs Temp Pulse Resp BP Pulse Ox O2 Del Method O2 Flow Rate 97.9 F 88 18 108/48 L 99 Nasal Cannula 2 03/23/25 08:19 03/23/25 13:08 03/23/25 13:08 03/23/25 08:19 03/23/25 08:19 03/23/25 08:19 03/23/25 08:19 Oxygen Flow Rate (L/min) 2 Oxygen Delivery Method Nasal Cannula Weight: 161 lb 9.581 oz Body Mass Index (BMI) 28.6 Intake & Output: Intake and Output for Last 24 Hours 03/21/25 03/22/25 03/23/25 23:59 23:59 23:59 Intake Total 2300 / 2300 Output Total 400 / 400 Balance 1900 / 1900 Medical Nutrition Assessment Dietitian: Malnutrition Criteria Met Start: 03/22/25 12:40 Freq: Status: Active Protocol: Document 03/22/25 12:41 RMA (Rec: 03/22/25 12:41 RMA [id number]) Nutrition Malnutrition Evidence of Yes Malnutrition Exists Malnutrition (severe Chronic ): Evidenced By Suboptimal Energy Intake (Severe),Weight Loss (Severe) Clinical Problem Chronic Disease or Condition Related Malnutrition Etiology severe protein-calorie malnutrition in the context of chronic disease and debility related to inadequate oral intake and increased energy expenditure Signs/Symptoms as evidenced by ~6% unintentional weight loss x past 1 month, PO meeting less than 75% estimated nutrition needs Status Active Problem Recommendation Dietitian Will adjust diet to 2000 calorie; consistent Recommendations/ carbohydrate. Changes Will continue 120mL glucerna shake 3 times per day with medpas. Will add extra 1-2 oz meat/protein Q meal as tolerated. Will trend weights closely as available. Lab / Micro Data 03/23/25 05:13 03/23/25 05:13 Labs: Laboratory Results - last 24 hr 03/22/25 16:56: POC Glucose 232 H 03/22/25 23:03: POC Glucose 243 H 03/23/25 05:13: WBC 7.4, RBC 3.26 L, Hgb 8.8 L, Hct 28.0 L, MCV 85.9 D, MCH 27.0, MCHC 31.4 L, RDW Std Deviation 50.8 H, RDW Coeff of Vijay 16.0 H, Plt Count 274, MPV 10.7, Immature Gran % (Auto) 0.500, Neut % (Auto) 76.1 H, Lymph % (Auto) 16.5 L, [place] % (Auto) 6.8, Eos % (Auto) 0.0, Baso % (Auto) 0.1, Absolute Neuts (auto) 5.6, Absolute Lymphs (auto) 1.21, Nucleated RBC % 0, Sodium 132 L, Potassium 5.8 H, Chloride 98, Carbon Dioxide 26.0, Anion Gap 8, BUN 19, C reatinine 1.25 H, Estim Creat Clear Calc 33.86 L, Est GFR (MDRD) Non-Af 43 L, BUN/Creatinine Ratio 15.2, Glucose 198 H, Calcium 10.2 03/23/25 08:12: POC Glucose 228 H 03/23/25 11:52: POC Glucose 232 H Micro: Microbiology 03/21/25 15:05 Urine Catheter - Catheter Urine Culture - Preliminary Gram positive organism Physical Exam Const alert, oriented x3 and no apparent distress General Appearance: cooperative HEENT normocephalic, head/scalp atraumatic, moist oral mucous membranes and oropharynx normal Eyes PERRL and EOMs intact bilaterally Neck no lymphadenopathy and supple Lymph Lymphatic: no lymphedema noted Resp Resp Narrative: milldy diminished breath sounds bibasally, no wheezes or crackles. On 2L of oxygen by nasal canula. Cardio regular rate, regular rhythm, S1 normal heart sound, S2 normal heart sound and no murmurs GI normal to inspection, nondistended, normoactive bowel sounds, soft to palpation, non-tender and non-distended Extremity normal capillary refill, no clubbing, cyanosis or edema and no calf tenderness General Extremity: no tenderness to palpation of joints or extremities Skin General Skin Exam: no breakdown Neuro CN's II-XII intact bilaterally, no focal motor deficits and no sensory deficits noted Motor Exam: strength 5/5 throughout and general weakness Psych thought process normal, cooperative and affect normal Appearance: appropriate Assessment & Plan Assessment/Plan (1) Acute UTI: (2) COPD exacerbation: PLAN: Plan #Acute intractable pain with debility and failure to thrive * PT/OT on board. Fall precautions. * PO tylenol, tizanidine and IV toradol prn. * #Acute UTI * has a chronic neurogenic bladder and self catheterizes. * most recent cultures positive for Enterococcus so patient on IV levaquin * urine cultures growing gram positive cocci, speciation is pending. Will continue IV levaquin for now #Probable atelectasis * CT chest showed atypical patchy airspace in bilateral posterior medial lung bases more pronounced on the left. This was similar to previous Chest CT * speech therapy on board * aspiration precautions. * #Hyperkalemia: Potassium is 5.8 today. Will DC home potassium supplementation. Repeat BMP to monitor. #Chronic hypoxic respiratory failure due to COPD and asthma * on 2L of oxygen by nasal canula * on roflumilast. * breathing treatment with bronchodilators. * # History of left-sided breast cancer: S/p lumpectomy in 2003 #Type 2 diabetes mellitus with neuropathy: On Lantus as well as sitagliptin empagliflozin the last tirzepatide. Insulin sliding scale. Accu-Cheks ACHS. #Benign essential hypertension: On carvedilol. IV hydralazine as needed #History of multinodular goiter: Stable #Glaucoma: On netarsudil latanoprost eyedrops DVT prophylaxis: heparin. Charges/Coding Visit Charges Inpatient E&M: 40849 Subs Hosp L2
[2025-03-23 15:38] LABS: Potassium 5.2 mmol/L (3.3-5.1)
[2025-03-23] MEDS: SACUBITRIL/VALSARTAN 24/26 MG TABLET 1 EACH PO (21:13)
[2025-03-23] MEDS: NETARSUDIL MESYLAT/LATANOPROST 2.5 ML DROPS 1 DRP EACH EYE (21:19)
[2025-03-24] VITALS (7 sets, daily range): BP systolic 92–135; BP diastolic 43–76; PULSE 87–113; RESP 16–18; TEMP 36.5–36.9; O2SAT 98–100; BMI 29.4
--- NOTE | 2025-03-24 04:54 | NURSING ---
pt refused morning labs.
[2025-03-24] MEDS: ROFLUMILAST 500 MCG TABLET PO (07:55)
[2025-03-24 07:56] LABS: Hematocrit 29.7 % (37-47); Hemoglobin 9.1 g/dL (12.0-15.0); Immature Granulocytes Count 0.030 X10^3/uL (0.0-0.0); Mean Corp Hgb Conc 30.6 g/dL (32-36); Mean Corpuscular Volume 86.8 fL (81-99); Mean Platelet Vol. 10.7 fl (6.2-12.0); NRBC Flagged by Analyzer 0 % (0-5); Platelet Count 288 K/mm3 (150-450); RBC Distribution Width CV 16.4 % (11.6-14.6); RBC Distribution Width SD 52.3 fl (35.1-43.9); Red Blood Count 3.42 M/mm3 (4.2-5.4); White Blood Count 8.8 K/mm3 (4.4-11.0)
[2025-03-24] MEDS: MethylPREDNISolone DosePak 4 MG BOX PO ×4 (07:56→21:24)
[2025-03-24] MEDS: Azelastine HCl NASAL.SRY 2 SPRAY NASAL ×2 (07:56→21:17)
[2025-03-24] MEDS: Arthritis Pain Compound 60 CLICK TUBE TOPICAL ×2 (07:57→21:16)
[2025-03-24] MEDS: Polyethylene Glycol 3350 17 GM PACKET PO (07:58)
[2025-03-24] MEDS: Psyllium 1 PACKET PO (07:58)
[2025-03-24 08:42] LABS: Anion Gap 11 (5-15); BUN 24 mg/dL (4-19); BUN/Creat Ratio 19.7 RATIO (10-20); Calcium,Total 10.5 mg/dL (7.6-11.0); Carbon Dioxide 27.0 mmol/L (21.0-32.0); Chloride 97 mmol/L (98-108); Estimated Creatinine Clearance 35.44 ml/min (50-250); Glucose 165 mg/dL (70-99); Potassium 4.8 mmol/L (3.3-5.1)
[2025-03-24] MEDS: 0.9% Saline Lock 10 ML Syringe IV ×2 (09:40→21:31)
[2025-03-24] MEDS: 0.9% Normal Saline (500mL Bag) 500 ML 999 ML IV (09:40)
--- NOTE | 2025-03-24 12:00 | PN_ITS ---
Subjective Subjective Patient seen and examined. She is complaining of some chronic right lower back pain for which she has a heating pad in place. I saw the patient with her nurse by her bedside. Her blood pressure is running today in the 90s systolic though she is asymptomatic. She received tizanidine as well as Entresto and blood pressure medications last night. That is contributing to the low blood pressure. Review of systems otherwise negative. Objective Data Objective Data Vital Signs: Vital Signs Temp Pulse Resp BP Pulse Ox O2 Del Method O2 Flow Rate 98.5 F 87 18 99/43 L 100 Nasal Cannula 2 03/24/25 10:40 03/24/25 10:40 03/24/25 10:40 03/24/25 10:40 03/24/25 10:40 03/24/25 10:40 03/24/25 10:40 Oxygen Flow Rate (L/min) 2 Oxygen Delivery Method Nasal Cannula Weight: 166 lb 0.129 oz Body Mass Index (BMI) 29.4 Intake & Output: Intake and Output for Last 24 Hours 03/22/25 03/23/25 03/24/25 23:59 23:59 23:59 Intake Total 2300 / 2300 720 / 720 Output Total 400 / 400 Balance 1900 / 1900 720 / 720 Medical Nutrition Assessment Dietitian: Malnutrition Criteria Met Start: 03/22/25 12:40 Freq: Status: Active Protocol: Document 03/22/25 12:41 RMA (Rec: 03/22/25 12:41 RMA [id number]) Nutrition Malnutrition Evidence of Yes Malnutrition Exists Malnutrition (severe Chronic ): Evidenced By Suboptimal Energy Intake (Severe),Weight Loss (Severe) Clinical Problem Chronic Disease or Condition Related Malnutrition Etiology severe protein-calorie malnutrition in the context of chronic disease and debility related to inadequate oral intake and increased energy expenditure Signs/Symptoms as evidenced by ~6% unintentional weight loss x past 1 month, PO meeting less than 75% estimated nutrition needs Status Active Problem Recommendation Dietitian Will adjust diet to 2000 calorie; consistent Recommendations/ carbohydrate. Changes Will continue 120mL glucerna shake 3 times per day with medpas. Will add extra 1-2 oz meat/protein Q meal as tolerated. Will trend weights closely as available. Lab / Micro Data 03/24/25 07:40 03/24/25 07:40 Labs: Laboratory Results - last 24 hr 03/23/25 11:52: POC Glucose 232 H 03/23/25 14:36: Potassium 5.2 H 03/23/25 16:57: POC Glucose 251 H 03/23/25 20:58: POC Glucose 257 H 03/24/25 06:59: POC Glucose 156 H 03/24/25 07:40: WBC 8.8, RBC 3.42 L, Hgb 9.1 L, Hct 29.7 L, MCV 86.8, MCH 26.6 L , MCHC 30.6 L, RDW Std Deviation 52.3 H, RDW Coeff of Vijay 16.4 H, Plt Count 288, MPV 10.7, Immature Gran % (Auto) 0.300, Neut % (Auto) 68.8, Lymph % (Auto) 21.3, Maury % (Auto) 8.5, Eos % (Auto) 0.8, Baso % (Auto) 0.3, Absolute Neuts (auto) 6.1, Absolute Lymphs (auto) 1.88, Nucleated RBC % 0, Sodium 135, Potassium 4.8, Chloride 97 L, Carbon Dioxide 27.0, Anion Gap 11, BUN 24 H, Creatinine 1.21 H, E stim Creat Clear Calc 35.44 L, Est GFR (MDRD) Non-Af 45 L, BUN/Creatinine Ratio 19.7, Glucose 165 H, Calcium 10.5 Micro: Microbiology 03/21/25 15:05 Urine Catheter - Catheter Urine Culture - Final Staphylococcus epidermidis Physical Exam Const alert, oriented x3 and no apparent distress General Appearance: cooperative and well developed HEENT normocephalic, head/scalp atraumatic, moist oral mucous membranes and oropharynx normal Eyes PERRL and EOMs intact bilaterally Neck no lymphadenopathy and supple Lymph Lymphatic: no lymphedema noted Resp Resp Narrative: milldy diminished breath sounds bibasally, no wheezes or crackles. Remains on 2L of oxygen by nasal canula. Cardio regular rate, regular rhythm, S1 normal heart sound, S2 normal heart sound and no murmurs GI normal to inspection, nondistended, normoactive bowel sounds, soft to palpation, non-tender and non-distended Extremity normal capillary refill, no clubbing, cyanosis or edema and no calf tenderness General Extremity: no tenderness to palpation of joints or extremities Skin General Skin Exam: no breakdown Neuro CN's II-XII intact bilaterally, no focal motor deficits and no sensory deficits noted Motor Exam: strength 5/5 throughout and general weakness Psych thought process normal, cooperative and affect normal Appearance: appropriate Assessment & Plan Assessment/Plan (1) Acute UTI: (2) COPD exacerbation: PLAN: Plan #Acute intractable pain with debility and failure to thrive * PT/OT on board. Fall precautions. * PO tylenol, tizanidine and IV toradol prn. * #Acute UTI * has a chronic neurogenic bladder and self catheterizes. * most recent cultures positive for Enterococcus so patient on IV levaquin * urine cultures growing gram positive cocci, speciation is pending. Will continue IV levaquin pending speciation. #Probable atelectasis * CT chest showed atypical patchy airspace in bilateral posterior medial lung bases more pronounced on the left. This was similar to previous Chest CT * speech therapy on board * aspiration precautions. * #Hypotension: BP down in the 90s systolic today. She is currently asymptomatic. Will hold Entresto and blood pressure medications. Give a bolus of 500 cc normal saline. #Chronic heart failure with reduced ejection fraction: Hold Lasix and Entresto as well as atenolol due to hypotension. She has known EF of 35 to 40%. #Hyperkalemia:resolved with kayexalate. K is 4.8 today. #Chronic hypoxic respiratory failure due to COPD and asthma * on 2L of oxygen by nasal canula * on roflumilast. * breathing treatment with bronchodilators. * # History of left-sided breast cancer: S/p lumpectomy in 2003 #Type 2 diabetes mellitus with neuropathy: On Lantus as well as sitagliptin empagliflozin the last tirzepatide. Insulin sliding scale. Accu-Cheks ACHS. #Benign essential hypertension: On carvedilol. IV hydralazine as needed #History of multinodular goiter: Stable #Glaucoma: On netarsudil latanoprost eyedrops DVT prophylaxis: heparin. Charges/Coding Visit Charges Inpatient E&M: 12754 Subs Hosp L2
--- NOTE | 2025-03-24 12:13 | CASEMGMT ---
Noted therapy sessions yesterday and today. RN CM into pt room, pt sitting up in chair eating lunch. Pt states she feels comfortable returning home with [facility]. She denies need for a list of other options. Pt states she feels safe to return home and not need SNF. Pt son to bring in portable oxygen tank upon dc. Message sent to [employer] via [employer] at this time to make aware and send JORDON order. Green sheet on chart for this as well as if pt has a change in oxygen rx.
[2025-03-24] MEDS: Insulin Glargine-YFGN 100 UNIT/ML Pen 20 UNIT SC (21:22)
[2025-03-24] MEDS: NETARSUDIL MESYLAT/LATANOPROST 2.5 ML DROPS 1 DRP EACH EYE (21:26)
[2025-03-25 02:54] VITALS: BP 111/41; PULSE 88; RESP 18; TEMP 36.5; O2SAT 100
[2025-03-25 03:15] VITALS: BMI 30.4
[2025-03-25 06:47] LABS: Hematocrit 29.7 % (37-47); Hemoglobin 9.0 g/dL (12.0-15.0); Immature Granulocytes Count 0.060 X10^3/uL (0.0-0.0); Mean Corp Hgb Conc 30.3 g/dL (32-36); Mean Corpuscular Volume 89.7 fL (81-99); Mean Platelet Vol. 10.8 fl (6.2-12.0); NRBC Flagged by Analyzer 0.3 % (0-5); Platelet Count 251 K/mm3 (150-450); RBC Distribution Width CV 16.3 % (11.6-14.6); RBC Distribution Width SD 53.7 fl (35.1-43.9); Red Blood Count 3.31 M/mm3 (4.2-5.4); White Blood Count 7.8 K/mm3 (4.4-11.0)
[2025-03-25 07:18] VITALS: PULSE 88; RESP 20; O2SAT 97
[2025-03-25 07:35] LABS: Anion Gap 12 (5-15); BUN 25 mg/dL (4-19); BUN/Creat Ratio 22.1 RATIO (10-20); Calcium,Total 10.6 mg/dL (7.6-11.0); Carbon Dioxide 26.0 mmol/L (21.0-32.0); Chloride 101 mmol/L (98-108); Estimated Creatinine Clearance 38.25 ml/min (50-250); Glucose 123 mg/dL (70-99); Potassium 4.8 mmol/L (3.3-5.1)
[2025-03-25 07:48] VITALS: BP 138/63; PULSE 106; RESP 16; TEMP 36.9; O2SAT 100
[2025-03-25] MEDS: MethylPREDNISolone DosePak 4 MG BOX PO ×2 (08:00→12:20)
[2025-03-25] MEDS: Arthritis Pain Compound 60 CLICK TUBE TOPICAL (08:01)
[2025-03-25] MEDS: Azelastine HCl NASAL.SRY 2 SPRAY NASAL (08:01)
[2025-03-25] MEDS: ROFLUMILAST 500 MCG TABLET PO (08:04)
[2025-03-25] MEDS: Polyethylene Glycol 3350 17 GM PACKET PO (08:05)
[2025-03-25] MEDS: Psyllium 1 PACKET PO (08:05)
[2025-03-25] MEDS: Insulin Glargine-YFGN 100 UNIT/ML Pen 20 UNIT SC (08:25)
--- NOTE | 2025-03-25 11:26 | DCINST_ITS ---
Discharge Instructions DC O2, CPAP, BIPAP needs Home O2 Discharge instructions: Yes Type of respiratory needs?: Oxygen Oxygen frequency: Continuous Continuous oxygen liters per minute: 2 Dressing / Incision Discharge Activity: Return to Normal Activity Weight Bearing Status: Weight bearing as tolerated Dressing / Incision Call your doctor if you observe: Fever of 101 or Higher, Shortness of breath and Swelling in the ankles Follow Up Care Test Results: Test results from this visit will be discussed in further detail at your follow- up appointment, if applicable. Discharge Plan Admission Admit Date/Time: 03/21/25 23:03 Primary Reason for Your Visit: UTI Attending Provider: Melba Hartmann Primary Care Provider: Ramone Smiley Consulting Providers: Abigail Foster Instructions Patient Instructions: Urinary Tract Infections in Women, ED Back Spasm, No Trauma Additional Instructions / Restrictions: cardizem stopped. Metoprolol cut down to 12.5mg bid. Lasix reduced to 20mg daily due to to hypotension Discharge Orders/Prescriptions Prescriptions: New diazepam 2 mg tablet 2 mg PO BID PRN (Reason: muscle spasm) Qty: 10 0RF furosemide [Lasix] 20 mg tablet 20 mg PO DAILY Qty: 30 2RF metoprolol tartrate 25 mg tablet 12.5 mg PO BID Qty: 30 2RF Entresto 24-26 mg Tablet 1 tab PO BID Qty: 60 2RF doxycycline hyclate 100 mg tablet 100 mg PO BID Qty: 14 0RF Continued Januvia 50 mg tablet 50 mg PO DAILY Jardiance 10 mg tablet 10 mg PO DAILY multivitamin Tablet 1 tab PO DAILY pravastatin 20 mg tablet 20 mg PO DAILY aspirin 81 MG tablet,chewable 81 mg PO DAILY magnesium oxide 400 MG tablet 400 mg PO BID pantoprazole 40 MG tablet 40 mg PO DAILY roflumilast 500 mcg tablet 500 mcg PO DAILY ascorbic acid (vitamin C) [Vitamin C] 250 mg tablet 250 mg PO DAILY insulin lispro [Humalog KwikPen Insulin] 100 unit/mL Insulin Pen 10 unit subcut TIDAC Rx Instructions: Hold if glucose less than 120 mg/dl Mounjaro 5 mg/0.5 mL pen injector 5 mg subcut QWEEK Patient Comments: PT STATes she takes on mondays menthol-zinc oxide [CalaSoothe] 0.44-20.6 % ointment 1 applic topical 4X/DAY PRN (Reason: skin irritation) psyllium husk [Daily Fiber] 0.4 gram capsule 0.4 g PO DAILY mecobalamin (vitamin B12) [B12 Active] 1,000 mcg tablet,chewable 1,000 mcg PO DAILY azelastine 137 mcg (0.1 %) spray,non-aerosol 1 - 2 spray INTRANASAL BID acetaminophen 500 mg Tablet 1,000 mg PO Q6H PRN (Reason: Pain Score 1-3) Rocklatan 0.02-0.005 % Drops 1 drp EACH EYE DAILY potassium chloride [K-Tab] 20 mEq tablet extended release 20 meq PO BID ipratropium-albuterol 0.5 mg-3 mg(2.5 mg base)/3 mL Solution For Nebulization 3 ml inhalation Q6H.RT Qty: 120 0RF albuterol sulfate 90 mcg/actuation HFA aerosol inhaler 2 puff inhalation Q6H PRN (Reason: shortness of breath or wheezing) cetirizine 10 mg tablet 10 mg PO DAILY hydroxyzine HCl 25 mg tablet 12.5 mg PO QHS guaifenesin [Mucinex] 600 mg Tablet Extended Release 12hr 600 mg PO BID Qty: 0 0RF gabapentin 100 mg capsule 100 mg PO QHS 3 Days Qty: 3 0RF ipratropium bromide 21 mcg (0.03 %) spray,non-aerosol 1 - 2 spray INTRANASAL Q6H PRN (Reason: allergy symptoms) insulin glargine [Lantus Solostar U-100 Insulin] 100 unit/mL (3 mL) insulin pen 20 unit subcut BID (DME) lancets [TRUEplus Lancets] [facility] MISCELLANEOUS Breztri Aerosphere 160-9-4.8 mcg/actuation HFA aerosol inhaler 2 inh inhalation BID Discontinued metoprolol tartrate 25 MG tablet 25 mg PO BID furosemide [Lasix] 20 mg tablet 60 mg PO BID Qty: 180 0RF diltiazem HCl 180 mg capsule,ext.rel 24h degradable 180 mg PO DAILY Entresto 24-26 mg tablet 1 tab PO BID Qty: 60 11RF Referrals / Follow Up: Ramone Smiley MD [Primary Care Provider] - Within 1 Week Disposition Disposition (needs filled in before D/C Order can be placed): Home Health Service
--- NOTE | 2025-03-25 11:33 | PCM.DC.SUM ---
Providers Date of Admission: 03/21/25 Date of Discharge: 03/25/25 Primary Care Physician: Dr. Ramone Smiley MD Reason For Visit: INTRACTABLE BACK PAIN, UTI Diagnosis Discharge Diagnosis (1) Acute UTI: Status: Acute Code(s): N39.0 - Urinary tract infection, site not specified (2) COPD exacerbation: Status: Chronic Code(s): J44.1 - Chronic obstructive pulmonary disease with (acute) exacerbation Plan #Acute intractable pain with debility and failure to thrive PT/OT on board. Fall precautions. PO tylenol, tizanidine and IV toradol prn. #Acute UTI has a chronic neurogenic bladder and self catheterizes. most recent cultures positive for Enterococcus so patient on IV levaquin urine cultures growing gram positive cocci, speciation is pending. Will continue IV levaquin pending speciation. #Probable atelectasis CT chest showed atypical patchy airspace in bilateral posterior medial lung bases more pronounced on the left. This was similar to previous Chest CT speech therapy on board aspiration precautions. #Hypotension: BP down in the 90s systolic today. She is currently asymptomatic. Will hold Entresto and blood pressure medications. Give a bolus of 500 cc normal saline. #Chronic heart failure with reduced ejection fraction: Hold Lasix and Entresto as well as atenolol due to hypotension. She has known EF of 35 to 40%. #Hyperkalemia:resolved with kayexalate. K is 4.8 today. #Chronic hypoxic respiratory failure due to COPD and asthma on 2L of oxygen by nasal canula on roflumilast. breathing treatment with bronchodilators. # History of left-sided breast cancer: S/p lumpectomy in 2003 #Type 2 diabetes mellitus with neuropathy: On Lantus as well as sitagliptin empagliflozin the last tirzepatide. Insulin sliding scale. Accu-Cheks ACHS. #Benign essential hypertension: On carvedilol. IV hydralazine as needed #History of multinodular goiter: Stable #Glaucoma: On netarsudil latanoprost eyedrops DVT prophylaxis: heparin. Medications at Discharge Home Medications aspirin 81 mg chewable tablet 81 mg PO DAILY [facility] 01/21/16 magnesium oxide 400 mg (241.3 mg magnesium) tablet 400 mg PO BID SUPPLEMENT 08/16/18 pantoprazole 40 mg tablet,delayed release 40 mg PO DAILY ACID REFLUX 04/03/20 empagliflozin 10 mg tablet (Jardiance) 10 mg PO DAILY DIABETES 10/18/20 sitagliptin phosphate 50 mg tablet (Januvia) 50 mg PO DAILY DIABETES 10/18/20 multivitamin 1 tab PO DAILY VITAMIN 12/06/21 pravastatin 20 mg tablet 20 mg PO DAILY CHOLESTEROL 12/06/21 ascorbic acid (vitamin C) 250 mg tablet (Vitamin C) 250 mg PO DAILY SUPPLEMENT 08/13/23 roflumilast 500 mcg tablet 500 mcg PO DAILY COPD 08/13/23 insulin lispro 100 unit/mL subcutaneous pen (Humalog KwikPen (U-100) Insulin) 10 unit subcut TIDAC short acting insulin 12/30/23 budesonide 160 mcg-glycopyr 9 mcg-formot 4.8 mcg/actuation HFA inhaler (Breztri Aerosphere) 2 inh inhalation BID breathing 01/07/25 insulin glargine 100 unit/mL (3 mL) subcutaneous pen (Lantus Solostar U-100 Insulin) 20 unit subcut BID diabetes 01/07/25 ipratropium bromide 21 mcg (0.03 %) nasal spray 1 - 2 spray intranasal Q6H PRN allergy symptoms 01/07/25 lancets 28 gauge (TRUEplus Lancets) 01/07/25 acetaminophen 500 mg tablet 1,000 mg PO Q6H PRN Pain Score 1-3 01/15/25 azelastine 137 mcg (0.1 %) nasal spray 1 - 2 spray intranasal BID nasal spray 01/15/25 mecobalamin (vitamin B12) 1,000 mcg chewable tablet (B12 Active) 1,000 mcg PO DAILY health maintenance 01/15/25 menthol 0.44 %-zinc oxide 20.6 % topical ointment (CalaSoothe) 1 applic topical 4X/DAY PRN skin irritation 01/15/25 netarsudil 0.02 %-latanoprost 0.005 % eye drops (Rocklatan) 1 drp EACH EYE DAILY eye drops 01/15/25 psyllium husk 0.4 gram capsule (Daily Fiber) 0.4 g PO DAILY constipation 01/15/25 tirzepatide 5 mg/0.5 mL subcutaneous pen injector (Baoro) 5 mg subcut QWEEK diabetes 01/15/25 potassium chloride 20 mEq tablet,extended release (K-Tab) 20 meq PO BID supplement 02/04/25 ipratropium 0.5 mg-albuterol 3 mg (2.5 mg base)/3 mL nebulization soln 3 ml inhalation Q6H.RT sob #120 amps 02/06/25 albuterol sulfate 90 mcg/actuation aerosol inhaler 2 puff inhalation Q6H PRN shortness of breath or wheezing 02/09/25 cetirizine 10 mg tablet 10 mg PO DAILY allergy 02/09/25 hydroxyzine HCl 25 mg tablet 12.5 mg PO QHS allergies 02/09/25 gabapentin 100 mg capsule 100 mg PO QHS NERVE PAIN 3 days #3 caps 02/17/25 guaifenesin 600 mg tablet, extended release 12 hr (Mucinex) 600 mg PO BID cough #0 tabs 02/17/25 diazepam 2 mg tablet 2 mg PO BID PRN muscle spasm #10 TABLETS 03/21/25 doxycycline hyclate 100 mg tablet 100 mg PO BID #14 tabs 03/25/25 furosemide 20 mg tablet (Lasix) 20 mg PO DAILY #30 tabs 03/25/25 metoprolol tartrate 25 mg tablet 12.5 mg (1/2 x 25 mg) PO BID #30 tabs 03/25/25 sacubitril 24 mg-valsartan 26 mg tablet (Entresto) 1 tab PO BID #60 tabs 03/25/25 Hospital Course Operations None Procedures None Summary of Care Provided Minutes Spent on Discharge: 45 Hospital Course: Patient is an 80-year-old female with a past medical history as outlined who was admitted to the ED on 03/21/2025 with a complaint of right-sided back spasms which have been persistent for about 2 weeks with associated chronic constipation. She also self catheterizes at home due to neurogenic bladder. She came into the ED as her symptoms were not improving. Urinalysis showed evidence of UTI. CT of the abdomen and pelvis showed patchy airspace consolidation concerning for possible aspiration and moderate colonic stool burden. She was admitted and managed for acute intractable pain with debility and failure to thrive as well as acute UTI. She was started on IV Levaquin due to most recent urine cultures growing Enterococcus. PT OT was also consulted. Her chest CT findings were thought to likely be due to atelectasis and was similar to previous CTs. Her urine culture grew Staph epidermidis which was sensitive to doxycycline. She did work with physical therapy during this admission.. She was discharged home on 03/25/2025 with a prescription for p.o. doxycycline for 5-day course. Of note patient's hospital course was complicated by hypotension. Her medications were therefore adjusted with her Lasix being cut down to 20 mg daily. She was continued on her Entresto. Her Cardizem was discontinued and her metoprolol cut down from 25 mg twice daily to 12.5 mg twice daily. She is follow-up with her primary care doctor and her fine arts teacher for medications to be adjusted as needed. Patient seen and examined prior to discharge. She felt well and had no complaints. She had an uneventful night. Review of systems otherwise negative. Labs and vitals reviewed. Home medication reviewed and reconciled. Physical Exam Const alert, oriented x3 and no apparent distress General Appearance: cooperative, comfortable, well kempt and well developed HEENT normocephalic, head/scalp atraumatic, hearing grossly normal bilaterally, moist oral mucous membranes and oropharynx normal Mouth: oral and palatal mucosa normal Eyes PERRL and EOMs intact bilaterally Neck no lymphadenopathy and supple Lymph Lymphatic: no lymphedema noted Resp Resp Narrative: milldy diminished breath sounds bibasally, no wheezes or crackles. Remains on 2L of oxygen by nasal canula. Cardio regular rate, regular rhythm, S1 normal heart sound, S2 normal heart sound and no murmurs GI normal to inspection, nondistended, normoactive bowel sounds, soft to palpation, non-tender and non-distended Extremity normal to inspection, full ROM, normal capillary refill, no clubbing, cyanosis or edema and no calf tenderness General Extremity: no tenderness to palpation of joints or extremities Skin no rashes or lesions noted General Skin Exam: no breakdown Neuro oriented x3, CN's II-XII intact bilaterally, moves all extremities, no focal motor deficits and no sensory deficits noted Motor Exam: strength 5/5 throughout and general weakness Psych thought process normal, cooperative and affect normal Appearance: appropriate Medical Records Data Medical Nutrition Assessment Dietitian: Malnutrition Criteria Met Start: 03/22/25 12:40 Freq: Status: Active Protocol: Document 03/22/25 12:41 RMA (Rec: 03/22/25 12:41 RMA [id number]) Nutrition Malnutrition Evidence of Yes Malnutrition Exists Malnutrition (severe Chronic ): Evidenced By Suboptimal Energy Intake (Severe),Weight Loss (Severe) Clinical Problem Chronic Disease or Condition Related Malnutrition Etiology severe protein-calorie malnutrition in the context of chronic disease and debility related to inadequate oral intake and increased energy expenditure Signs/Symptoms as evidenced by ~6% unintentional weight loss x past 1 month, PO meeting less than 75% estimated nutrition needs Status Active Problem Recommendation Dietitian Will adjust diet to 2000 calorie; consistent Recommendations/ carbohydrate. Changes Will continue 120mL glucerna shake 3 times per day with medpas. Will add extra 1-2 oz meat/protein Q meal as tolerated. Will trend weights closely as available. Weight / BMI Weight Weight: 171 lb 11.841 oz Body Mass Index (BMI) 30.4 ABG / Lab / Microbiology Data 03/25/25 06:25 03/25/25 06:25 Laboratory: Laboratory Results - last 24 hr 03/24/25 17:01: POC Glucose 311 H 03/24/25 21:10: POC Glucose 294 H 03/25/25 06:25: WBC 7.8, RBC 3.31 L, Hgb 9.0 L, Hct 29.7 L, MCV 89.7, MCH 27.2, MCHC 30.3 L, RDW Std Deviation 53.7 H, RDW Coeff of Vijay 16.3 H, Plt Count 251, MPV 10.8, Immature Gran % (Auto) 0.800, Neut % (Auto) 61.3, Lymph % (Auto) 26.3, [place] % (Auto) 10.4 H, Eos % (Auto) 0.8, Baso % (Auto) 0.4, Absolute Neuts (auto) 4.8, Absolute Lymphs (auto) 2.04, Nucleated RBC % 0.3, Sodium 139, Potassium 4.8, Chloride 101, Carbon Dioxide 26.0, Anion Gap 12, BUN 25 H, Creatinine 1.14, Estim Creat Clear Calc 38.25 L, Est GFR (MDRD) Non-Af 48 L, BUN/Creatinine Ratio 22.1 H, Glucose 123 H, Calcium 10.6 03/25/25 06:41: POC Glucose 124 H 03/25/25 08:23: POC Glucose 164 H 03/25/25 12:18: POC Glucose 193 H Microbiology: Microbiology 03/21/25 15:05 Urine Catheter - Catheter Urine Culture - Final Staphylococcus epidermidis D/C Instructions Discharge Activity: Return to Normal Activity Weight Bearing Status: Weight bearing as tolerated Call your doctor if you observe: Fever of 101 or Higher, Shortness of breath and Swelling in the ankles DC O2, CPAP, BIPAP Needs Home O2 Discharge instructions: Yes Type of respiratory needs?: Oxygen Oxygen frequency: Continuous Continuous oxygen liters per minute: 2 DC home with Oxygen: Yes Home O2 MD Review: I have reviewed the oxygen testing, and the patient qualifies for home oxygen equipment and portability. The patient is mobile in the home and the community. Meaningful Use Info Meaningful Use Meaningful Use Diagnoses (Choose all that apply): None applicable Discharge Plan Admission Admit Date/Time: 03/21/25 23:03 Primary Reason for Your Visit: UTI Attending Provider: Melba Hartmann Primary Care Provider: Ramone Smiley Consulting Providers: Abigail Foster Instructions Patient Instructions: Urinary Tract Infections in Women, ED Back Spasm, No Trauma Additional Instructions / Restrictions: cardizem stopped. Metoprolol cut down to 12.5mg bid. Lasix reduced to 20mg daily due to to hypotension Discharge Orders/Prescriptions Prescriptions: New diazepam 2 mg tablet 2 mg PO BID PRN (Reason: muscle spasm) Qty: 10 0RF furosemide [Lasix] 20 mg tablet 20 mg PO DAILY Qty: 30 2RF metoprolol tartrate 25 mg tablet 12.5 mg PO BID Qty: 30 2RF Entresto 24-26 mg Tablet 1 tab PO BID Qty: 60 2RF doxycycline hyclate 100 mg tablet 100 mg PO BID Qty: 14 0RF Continued Januvia 50 mg tablet 50 mg PO DAILY Jardiance 10 mg tablet 10 mg PO DAILY multivitamin Tablet 1 tab PO DAILY pravastatin 20 mg tablet 20 mg PO DAILY aspirin 81 MG tablet,chewable 81 mg PO DAILY magnesium oxide 400 MG tablet 400 mg PO BID pantoprazole 40 MG tablet 40 mg PO DAILY roflumilast 500 mcg tablet 500 mcg PO DAILY ascorbic acid (vitamin C) [Vitamin C] 250 mg tablet 250 mg PO DAILY insulin lispro [Humalog KwikPen Insulin] 100 unit/mL Insulin Pen 10 unit subcut TIDAC Rx Instructions: Hold if glucose less than 120 mg/dl Mounjaro 5 mg/0.5 mL pen injector 5 mg subcut QWEEK Patient Comments: PT STATes she takes on mondays menthol-zinc oxide [CalaSoothe] 0.44-20.6 % ointment 1 applic topical 4X/DAY PRN (Reason: skin irritation) psyllium husk [Daily Fiber] 0.4 gram capsule 0.4 g PO DAILY mecobalamin (vitamin B12) [B12 Active] 1,000 mcg tablet,chewable 1,000 mcg PO DAILY azelastine 137 mcg (0.1 %) spray,non-aerosol 1 - 2 spray INTRANASAL BID acetaminophen 500 mg Tablet 1,000 mg PO Q6H PRN (Reason: Pain Score 1-3) Rocklatan 0.02-0.005 % Drops 1 drp EACH EYE DAILY potassium chloride [K-Tab] 20 mEq tablet extended release 20 meq PO BID ipratropium-albuterol 0.5 mg-3 mg(2.5 mg base)/3 mL Solution For Nebulization 3 ml inhalation Q6H.RT Qty: 120 0RF albuterol sulfate 90 mcg/actuation HFA aerosol inhaler 2 puff inhalation Q6H PRN (Reason: shortness of breath or wheezing) cetirizine 10 mg tablet 10 mg PO DAILY hydroxyzine HCl 25 mg tablet 12.5 mg PO QHS guaifenesin [Mucinex] 600 mg Tablet Extended Release 12hr 600 mg PO BID Qty: 0 0RF gabapentin 100 mg capsule 100 mg PO QHS 3 Days Qty: 3 0RF ipratropium bromide 21 mcg (0.03 %) spray,non-aerosol 1 - 2 spray INTRANASAL Q6H PRN (Reason: allergy symptoms) insulin glargine [Lantus Solostar U-100 Insulin] 100 unit/mL (3 mL) insulin pen 20 unit subcut BID (DME) lancets [TRUEplus Lancets] 28 gauge misc MISCELLANEOUS Breztri Aerosphere 160-9-4.8 mcg/actuation HFA aerosol inhaler 2 inh inhalation BID Discontinued metoprolol tartrate 25 MG tablet 25 mg PO BID furosemide [Lasix] 20 mg tablet 60 mg PO BID Qty: 180 0RF diltiazem HCl 180 mg capsule,ext.rel 24h degradable 180 mg PO DAILY Entresto 24-26 mg tablet 1 tab PO BID Qty: 60 11RF Referrals / Follow Up: Ramone Smiley MD [Primary Care Provider] - Within 1 Week Disposition Disposition (needs filled in before D/C Order can be placed): Home Health Service Charges/Coding Visit Charges Inpatient E&M: 92286 Disch Hosp >30min
[2025-03-25 13:49] VITALS: BP 136/60; PULSE 102; RESP 16; TEMP 37.2; O2SAT 100
== END 2025-03-25 16:44 | disposition home health service (06) | DRG 698 ==
LOC: ED 23:24 → MS3 23:29
PROVIDERS: Emergency Medicine; Admitting Provider Family Medicine; Emergency Provider Emergency Medicine; PCP Family Medicine; Visit Provider Student in an Organized Health Care Education/Training Program
DX: T83.518A Infection and inflammatory reaction due to other urinary catheter, initial encounter (principal); E43 Unspecified severe protein-calorie malnutrition; J96.11 Chronic respiratory failure with hypoxia; I13.0 Hypertensive heart and chronic kidney disease with heart failure and stage 1 through stage 4 chronic kidney disease, or unspecified chronic kidney disease; I50.22 Chronic systolic (congestive) heart failure; J98.11 Atelectasis; N39.0 Urinary tract infection, site not specified; R62.7 Adult failure to thrive; E11.22 Type 2 diabetes mellitus with diabetic chronic kidney disease; D50.9 Iron deficiency anemia, unspecified; E04.2 Nontoxic multinodular goiter; B95.7 Other staphylococcus as the cause of diseases classified elsewhere; J44.9 Chronic obstructive pulmonary disease, unspecified; N18.30 Chronic kidney disease, stage 3 unspecified; F32.A Depression, unspecified; I35.0 Nonrheumatic aortic (valve) stenosis; E11.40 Type 2 diabetes mellitus with diabetic neuropathy, unspecified; E11.51 Type 2 diabetes mellitus with diabetic peripheral angiopathy without gangrene; I25.10 Atherosclerotic heart disease of native coronary artery without angina pectoris; F41.9 Anxiety disorder, unspecified; K21.9 Gastro-esophageal reflux disease without esophagitis; K59.04 Chronic idiopathic constipation; E83.42 Hypomagnesemia; Z79.4 Long term (current) use of insulin; J30.9 Allergic rhinitis, unspecified; E78.5 Hyperlipidemia, unspecified; E87.5 Hyperkalemia; M54.50 Low back pain, unspecified; I95.2 Hypotension due to drugs; M62.830 Muscle spasm of back; M48.061 Spinal stenosis, lumbar region without neurogenic claudication; M48.07 Spinal stenosis, lumbosacral region; Y84.6 Urinary catheterization as the cause of abnormal reaction of the patient, or of later complication, without mention of misadventure at the time of the procedure; Z99.81 Dependence on supplemental oxygen; T42.8X5A Adverse effect of antiparkinsonism drugs and other central muscle-tone depressants, initial encounter; T46.5X5A Adverse effect of other antihypertensive drugs, initial encounter; T50.1X5A Adverse effect of loop [high-ceiling] diuretics, initial encounter; T46.1X5A Adverse effect of calcium-channel blockers, initial encounter; T44.7X5A Adverse effect of beta-adrenoreceptor antagonists, initial encounter; N31.9 Neuromuscular dysfunction of bladder, unspecified; M81.0 Age-related osteoporosis without current pathological fracture; R53.81 Other malaise; H40.9 Unspecified glaucoma; G89.29 Other chronic pain; Z88.0 Allergy status to penicillin; Z85.3 Personal history of malignant neoplasm of breast; Z68.27 Body mass index [BMI] 27.0-27.9, adult; Z79.82 Long term (current) use of aspirin; Z79.85 Long-term (current) use of injectable non-insulin antidiabetic drugs; Z79.51 Long term (current) use of inhaled steroids; Z79.84 Long term (current) use of oral hypoglycemic drugs; Z86.718 Personal history of other venous thrombosis and embolism; Z79.899 Other long term (current) drug therapy; Z87.891 Personal history of nicotine dependence; Z86.711 Personal history of pulmonary embolism
CPT/HCPCS: 36415; 72131; 74177; 80048; 80053; 81001; 82962; 84132; 85025; 87077; 87086; 87088; 87186; 92526; 92610; 94640; 94668; 97116; 97161; 97165; 97530; 97535; 97802; 99285; P9612; Q9967; A4216

== ENCOUNTER 2025-04-02 02:48 | Inpatient (IN) | payer MEDICARE, SELFPAY ==
[2025-04-02] VITALS (29 sets, daily range): BP systolic 90–183; BP diastolic 53–98; PULSE 73–157; RESP 12–33; TEMP 36.4–36.7; O2SAT 63–100; BMI 32.2; BMI 31.1
--- NOTE | 2025-04-02 02:59 | EKG12_ITS ---
Test Reason : SOB Blood Pressure : */* mmHG Vent. Rate : 126 BPM Atrial Rate : 126 BPM P-R Int : 122 ms QRS Dur : 94 ms QT Int : 310 ms P-R-T Axes : 54 55 185 degrees QTcB Int : 448 ms Sinus tachycardia with Premature atrial complexes with Aberrant conduction ST & T wave abnormality, consider lateral ischemia Abnormal ECG Confirmed by KELSEA LEARY, ANN ([id number]), editor map ATTILA ESPINO ([id number]) on 04/04/2025 7:45:46 AM Referred By: Confirmed By: ANN ENAMORADO MD
--- NOTE | 2025-04-02 02:59 | EKG12_ITS ---
Test Reason : SOB Blood Pressure : */* mmHG Vent. Rate : 126 BPM Atrial Rate : 126 BPM P-R Int : 122 ms QRS Dur : 94 ms QT Int : 310 ms P-R-T Axes : 54 55 185 degrees QTcB Int : 448 ms Sinus tachycardia with Premature atrial complexes with Aberrant conduction ST & T wave abnormality, consider lateral ischemia Abnormal ECG Confirmed by KELSEA LEARY, ANN ([id number]), newspaper copy editor ATTILA ESPINO ([id number]) on 04/04/2025 7:45:46 AM Referred By: Confirmed By: ANN ENAMORADO MD
[2025-04-02 03:11] LABS: Hematocrit 30.4 % (37-47); Hemoglobin 9.5 g/dL (12.0-15.0); Immature Granulocytes Count 0.020 X10^3/uL (0.0-0.0); Mean Corp Hgb Conc 31.3 g/dL (32-36); Mean Corpuscular Volume 88.6 fL (81-99); Mean Platelet Vol. 11.9 fl (6.2-12.0); NRBC Flagged by Analyzer 0 % (0-5); Platelet Count 296 K/mm3 (150-450); RBC Distribution Width CV 16.0 % (11.6-14.6); RBC Distribution Width SD 51.5 fl (35.1-43.9); Red Blood Count 3.43 M/mm3 (4.2-5.4); White Blood Count 9.0 K/mm3 (4.4-11.0)
[2025-04-02 03:20] LABS: Prothrombin Time (Protime)PT. 14.1 SECONDS (11.7-14.9)
[2025-04-02 03:21] LABS: Partial Thromboplast Time 28.6 Seconds (24.1-36.2)
[2025-04-02 03:30] LABS: AST(SGOT) 181 U/L (<=31); Alanine Aminotransfer ALT/SGPT 53 U/L (<=34); Albumin, Serum 3.5 g/dL (3.4-4.8); Alkaline Phosphatase 132 U/L (35-104); Anion Gap 13 (5-15); BUN 14 mg/dL (4-19); BUN/Creat Ratio 14.4 RATIO (10-20); Calcium,Total 10.3 mg/dL (7.6-11.0); Carbon Dioxide 23.3 mmol/L (21.0-32.0); Chloride 101 mmol/L (98-108); Estimated Creatinine Clearance 46.30 ml/min (50-250); Globulin 3.5 g/dL (2.2-4.2); Glucose 186 mg/dL (70-99); Potassium 4.3 mmol/L (3.3-5.1)
--- NOTE | 2025-04-02 03:35 | RAD_ITS ---
PROCEDURE: CHEST 1 VIEW (PORTABLE) 04/02/2025 REASON FOR EXAM: DYSPNEA TECHNIQUE: Frontal view of the chest. COMPARISON: 02/18/2025 FINDINGS: Rotated patient. Normal heart size. Slight under aeration of the lungs. Interval development of diffuse lung opacities, relative right upper lobe sparing. Most pronounced in the retrocardiac region. Could represent edema or pneumonia. Small bilateral effusions. No large effusion or pneumothorax. [id number], mid and lower lung zone lung opacities RAD/Chest 1 View (Portable) IMPRESSION: Interval development of asymmetric edema or pneumonia. Advise correlation. Reading Location: [place] [id number]
--- NOTE | 2025-04-02 03:35 | RAD_ITS ---
PROCEDURE: CHEST 1 VIEW (PORTABLE) 04/02/2025 REASON FOR EXAM: DYSPNEA TECHNIQUE: Frontal view of the chest. COMPARISON: 02/18/2025 FINDINGS: Rotated patient. Normal heart size. Slight under aeration of the lungs. Interval development of diffuse lung opacities, relative right upper lobe sparing. Most pronounced in the retrocardiac region. Could represent edema or pneumonia. Small bilateral effusions. No large effusion or pneumothorax. [id number], mid and lower lung zone lung opacities RAD/Chest 1 View (Portable) IMPRESSION: Interval development of asymmetric edema or pneumonia. Advise correlation. Reading Location: [place] [address]
[2025-04-02 03:37] LABS: Comment 18. 9.; FI02 40.0; SITE Not entered; VBG BASE EXCESS 8 mmol/L (-1.0-3.5); VBG PO2 36 mmHg (25-40); VBG SO2 71 % (50-70); VBG TCO2 33 mmol/L (23-33)
--- NOTE | 2025-04-02 03:46 | ED.VIS.DYS ---
HPI History of Present Illness Chief Complaint: Shortness of Breath Informant: patient and EMS Narrative Narrative: Brought in by EMS from home worsening dyspnea over the last 24 hours. Patient reported 2 evenings ago started having dyspnea she has minimal cough. COPD and asthma on chronic 2 L her oxygenation. Symptoms worsen over the past 24 hours. She is a diabetic. EMS was contacted given aerosol treatments she is put on 4 L. On arrival there is concerns that when exchange her oxygen she dropped in the 60s per nonrebreather. Patient denied any wheezing at home. She states has not required ventilator has required BiPAP in the past. No fever or chills. No vomiting or diarrhea. Reports decreased urine output no dysuria. Prior similar symptoms: Yes [facility] Medical History COPD exacerbation Acute UTI Back muscle spasm Former smoker On home oxygen therapy Osteoporosis History of diabetes mellitus COPD exacerbation Hypoxia Elevated troponin Acute dyspnea COPD with exacerbation Anemia History of COPD Elevated brain natriuretic peptide (BNP) level Elevated troponin Acute hypoxemic respiratory failure Obesity (BMI 30.0-34.9) Elevated troponin Lactic acidosis Poor venous access Diabetic polyneuropathy Hypomagnesemia Debility Fracture of hip, left, closed Coronary artery disease Weakness Gastroenteritis Paronychia of left index finger Abscess Vaginal cyst Anxiety Depression Irregular heart beat Multiple thyroid nodules Postmenopausal bleeding Foraminal stenosis of lumbar region Lumbar spinal stenosis Diabetic retinopathy Colon polyp GERD (gastroesophageal reflux disease) Thyroid goiter Hyperlipidemia Hypokalemia Microcytic anemia Neurogenic bladder Hypophosphatemia Hypercalcemia Former smoker UTI (urinary tract infection) Iron deficiency anemia Aortic stenosis Hyponatremia Urine retention Chronic renal failure, stage 3 (moderate) Cellulitis and abscess of finger, unspecified Retinopathy Peripheral artery disease Leg weakness, bilateral GERD (gastroesophageal reflux disease) Chronic idiopathic constipation COPD (chronic obstructive pulmonary disease) Polypharmacy Hypertension Carpal tunnel syndrome of right wrist Strain of right rotator cuff capsule Rhinitis Urinary retention with incomplete bladder emptying Vitamin D deficiency Asthma Pruritus Goiter, nontoxic, multinodular Anemia Diabetes COPD (chronic obstructive pulmonary disease) History of constipation Hx of venous thrombosis and embolism History of malignant neoplasm of breast Hypertension Type 2 diabetes mellitus Asthma Home Medications ?Medication ?Instructions ?Recorded ?Last Taken ?Type aspirin 81 mg chewable tablet 81 mg PO DAILY HEART HEALTH 01/21/16 01/15/25 History magnesium oxide 400 mg (241.3 mg 400 mg PO BID SUPPLEMENT 08/16/18 01/15/25 History magnesium) tablet pantoprazole 40 mg tablet,delayed 40 mg PO DAILY ACID REFLUX 12/02/19 01/15/25 History release empagliflozin 10 mg tablet 10 mg PO DAILY DIABETES 10/18/20 01/15/25 History (Jardiance) sitagliptin phosphate 50 mg tablet 50 mg PO DAILY DIABETES 10/18/20 01/15/25 History (Januvia) multivitamin 1 tab PO DAILY VITAMIN 12/06/21 01/15/25 History pravastatin 20 mg tablet 20 mg PO DAILY CHOLESTEROL 12/06/21 01/15/25 History ascorbic acid (vitamin C) 250 mg 250 mg PO DAILY SUPPLEMENT 08/13/23 01/15/25 History tablet (Vitamin C) roflumilast 500 mcg tablet 500 mcg PO DAILY COPD 08/13/23 01/15/25 History insulin lispro 100 unit/mL 10 unit subcut TIDAC short acting 12/30/23 01/15/25 History subcutaneous pen (Humalog KwikPen insulin (U-100) Insulin) budesonide 160 mcg-glycopyr 9 2 inh inhalation BID breathing 01/07/25 01/15/25 History mcg-formot 4.8 mcg/actuation HFA inhaler (Breztri Aerosphere) insulin glargine 100 unit/mL (3 20 unit subcut BID diabetes 01/07/25 01/15/25 History mL) subcutaneous pen (Lantus Solostar U-100 Insulin) ipratropium bromide 21 mcg (0.03 1 - 2 spray intranasal Q6H PRN 01/07/25 Unknown History %) nasal spray allergy symptoms lancets 28 gauge (TRUEplus Lancets) 01/07/25 Unknown History acetaminophen 500 mg tablet 1,000 mg PO Q6H PRN Pain Score 1-3 01/15/25 Unknown History azelastine 137 mcg (0.1 %) nasal 1 - 2 spray intranasal BID nasal 01/15/25 01/15/25 History spray spray mecobalamin (vitamin B12) 1,000 1,000 mcg PO DAILY health 01/15/25 01/15/25 History mcg chewable tablet (B12 Active) maintenance menthol 0.44 %-zinc oxide 20.6 % 1 applic topical 4X/DAY PRN skin 01/15/25 Unknown History topical ointment (CalaSoothe) irritation netarsudil 0.02 %-latanoprost 1 drp EACH EYE DAILY eye drops 01/15/25 01/15/25 History 0.005 % eye drops (Rocklatan) psyllium husk 0.4 gram capsule 0.4 g PO DAILY constipation 01/15/25 01/15/25 History (Daily Fiber) tirzepatide 5 mg/0.5 mL 5 mg subcut QWEEK diabetes 01/15/25 Unknown History subcutaneous pen injector (Mounjaro) potassium chloride 20 mEq 20 meq PO BID supplement 02/04/25 Unknown History tablet,extended release (K-Tab) ipratropium 0.5 mg-albuterol 3 mg 3 ml inhalation Q6H.RT sob #120 02/06/25 Unknown Rx (2.5 mg base)/3 mL nebulization amps soln albuterol sulfate 90 mcg/actuation 2 puff inhalation Q6H PRN 02/09/25 Unknown History aerosol inhaler shortness of breath or wheezing cetirizine 10 mg tablet 10 mg PO DAILY allergy 02/09/25 Unknown History hydroxyzine HCl 25 mg tablet 12.5 mg PO QHS allergies 02/09/25 Unknown History gabapentin 100 mg capsule 100 mg PO QHS NERVE PAIN 3 days 02/17/25 Unknown Rx #3 caps guaifenesin 600 mg tablet, 600 mg PO BID cough #0 tabs 02/17/25 Unknown Rx extended release 12 hr (Mucinex) diazepam 2 mg tablet 2 mg PO BID PRN muscle spasm #10 03/21/25 Unknown Rx TABLETS doxycycline hyclate 100 mg tablet 100 mg PO BID #14 tabs 03/25/25 Unknown Rx furosemide 20 mg tablet (Lasix) 20 mg PO DAILY #30 tabs 03/25/25 Unknown Rx metoprolol tartrate 25 mg tablet 12.5 mg (1/2 x 25 mg) PO BID #30 03/25/25 Unknown Rx tabs sacubitril 24 mg-valsartan 26 mg 1 tab PO BID #60 tabs 03/25/25 Unknown Rx tablet (Entresto) Allergy/AdvReac Type Severity Reaction Status Date / Time adhesive tape (tape) Allergy NEEDS Verified 04/02/25 02:49 FOLLOW-UP cephalexin monohydrate (From Allergy Rash Verified 04/02/25 02:49 Keflex) clopidogrel bisulfate (From Allergy Other Verified 04/02/25 02:49 Plavix) oxycodone AdvReac Severe made me Verified 04/02/25 02:49 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 amoxicillin AdvReac YEAST Verified 04/02/25 02:49 INFECTION Family History Daughter Breast cancer Father Hypertension Sister Cancer Kidney disease Mother Pancreatic cancer Surgical History History of left hip hemiarthroplasty S/P fine needle aspiration (~10/2020) H/O dilation and curettage (~07/10/20) History of Achilles tendon repair Retinopathy History of lumpectomy of left breast Social History household members: spouse Smoking Status: Former smoker alcohol intake: never substance use type: does not use caffeine: Yes what type of physical activity do you participate in: none seatbelt use: always do you feel safe at home: Yes additional social history: [employer]- retired ROS ROS ED Constitutional Constitutional ED: Denies chills, fever(s) or sweats ENT ENT ED: Denies sore throat Cardiovascular Cardiovascular: Denies chest pain, leg edema, palpitations or racing heartbeat Respiratory/Chest Respiratory/Chest: Reports cough and dyspnea; Denies dyspnea on exertion Gastrointestinal Gastrointestinal: Denies abdominal pain, diarrhea, nausea or vomiting Genitourinary Genitourinary ED: Denies dysuria, hematuria or urinary frequency Musculoskeletal Musculoskeletal: Denies back pain, extremity pain or neck pain Integumentary Denies rash or wounds Neurologic Neurologic: Denies headache(s), paresthesias or weakness EXAM Physical Exam Const Vital Signs: 04/02/25 02:50 04/02/25 02:55 04/02/25 03:00 Temperature 97.6 F L Temperature Source Temporal Pulse Rate 143 H 107 H Respiratory Rate 27 H 25 H Respiratory Effort Short of Breath Labored Nasal Flaring Pursed Lip Respiratory Depth Shallow Respiratory Pattern Tachypnea Blood Pressure 172/96 H Blood Pressure Mean 121 Pulse Ox 100 Oxygen Delivery Method Airvo Nasal Cannula Oxygen Flow Rate (L/min) 15 4 Fraction of Inspired Oxygen (FIO2) 08/03/25 03:00 04/02/25 03:05 04/02/25 03:12 Temperature Temperature Source Pulse Rate 116 H 106 H Respiratory Rate 33 H 30 H Respiratory Effort Respiratory Depth Respiratory Pattern Blood Pressure 183/87 H Blood Pressure Mean 119 Pulse Ox 100 100 100 Oxygen Delivery Method Bi-pap Bi-pap Oxygen Flow Rate (L/min) Fraction of Inspired Oxygen (FIO2) 40 40 40 04/02/25 03:43 04/02/25 03:51 04/02/25 04:00 Temperature Temperature Source Pulse Rate 96 95 Respiratory Rate 31 H 23 H Respiratory Effort Respiratory Depth Respiratory Pattern Blood Pressure 99/54 L 105/56 L Blood Pressure Mean 69 72 Pulse Ox 100 100 Oxygen Delivery Method Bi-pap Bi-pap Oxygen Flow Rate (L/min) Fraction of Inspired Oxygen (FIO2) 35 35 23 04/02/25 04:17 04/02/25 04:27 Temperature 98.1 F Temperature Source Pulse Rate 95 90 Respiratory Rate 16 21 H Respiratory Effort Respiratory Depth Respiratory Pattern Blood Pressure 139/53 H Blood Pressure Mean 81 Pulse Ox 100 100 Oxygen Delivery Method Oxygen Flow Rate (L/min) Fraction of Inspired Oxygen (FIO2) 35 Positive well nourished Constitutional Narrative: Patient was on nasal cannula during my evaluation tachypneic speaking in short sentences was diaphoretic. HEENT Reports moist mucous membranes normocephalic and atraumatic Eyes General Eye ED: Yes normal appearance of both eyes Neck full ROM Chest Wall Chest: Negative for tenderness Resp normal respiratory effort and normal air movement Effort and Inspection: symmetric chest movement; Negative for respiratory distress Cardio regular rhythm and no murmurs Rate: tachycardic Peripheral Pulses: pulses 2+ throughout GI normal to inspection, nondistended, normoactive bowel sounds and non-tender Palpation: Negative for guarding or rebound tenderness present Extremity normal to inspection General Extremety ED: Negative for edema or tenderness General Extremity: Negative for edema Neuro oriented x3 and no sensory deficits noted Sensorium / Orientation: awake and alert Skin no rashes or lesions noted and no wounds MDM MDM MDM Narrative Medical decision making narrative: Interventions / MDM: Differential diagnosis: Acute respiratory failure, COPD exacerbation, pneumonia Diagnosis considered but do not suspect: N/A My EKG interpretation: Sinus tachycardia rate of 126, no ST changes T wave versions lateral leads there is PVCs noted. Similar T wave changes from March 04, 2025. Imaging independently reviewed and interpreted by myself: 1 view chest x-ray: Developing infiltrate versus edema. Also read by radiology. External documents reviewed: N/A Test considered but not ordered:N/A ED course: Patient tachycardic tachypneic sweaty on arrival. Immediate BiPAP was discussed with respiratory therapy. Diminished breath sounds therefore aerosol treatments were given. EKG was sinus tachycardia prior to BiPAP. 0330: Reevaluation on the BiPAP clinically much better heart rate in the 90s. ABG ordered however VBG was obtained from respiratory no pH of 7.45PCO2 of 45. Appropriate for patient's presentation. 0350: Labs for white count 9 hemoglobin 9.5 stable from previous. Creatinine 0.97. Glucose 186. Breath sounds much better. No wheezing however COPD and asthma distress will start Solu-Medrol 60 mg IV. X-ray concerning for developing pneumonia versus edema. Discussed with the patient leg swelling is improving she denies orthopnea she is on a water pill. At this time concerns more of infiltrative concerns pressure with her cough lead to worsening dyspnea. No current leg swelling. I spoke with hospitalist Dr. Benito, multiple allergies, will do Levaquin. She had previous Rester panel was positive for viral findings. Added respiratory panel. COVID flu and RSV were negative. Patient be placed in the ICU due to respiratory failure. Re-evaluation: stable Disposition discussed with patient/family/significant other: Patient Case discussed with consulting clinician: Hospitalist This note was generated with [employer] dictation software. It may contain incorrect words, spelling, and punctuation that were not noted in checking the note before signing. Lab Data Attestation: I reviewed the patient's lab results. Labs: Laboratory Results - last 24 hr 04/02/25 04/02/25 04/02/25 02:53 03:11 03:53 WBC 9.0 RBC 3.43 L Hgb 9.5 L Hct 30.4 L MCV 88.6 MCH 27.7 MCHC 31.3 L RDW Std Deviation 51.5 H RDW Coeff of Vijay 16.0 H Plt Count 296 MPV 11.9 Immature Gran % (Auto) 0.200 Neut % (Auto) 35.5 L Lymph % (Auto) 49.3 H [place] % (Auto) 11.1 H Eos % (Auto) 3.3 Baso % (Auto) 0.6 Absolute Neuts (auto) 3.2 Absolute Lymphs (auto) 4.43 Nucleated RBC % 0 PT 14.1 INR 1.1 APTT 28.6 Sodium 138 Potassium 4.3 Chloride 101 Carbon Dioxide 23.3 Anion Gap 13 BUN 14 Creatinine 0.97 Estim Creat Clear Calc 46.30 L Est GFR (MDRD) Non-Af 59 L BUN/Creatinine Ratio 14.4 Glucose 186 H Lactic Acid 1.8 Calcium 10.3 Total Bilirubin 0.34 AST 181 H ALT 53 H Alkaline Phosphatase 132 [place] [address] H Total Protein 6.9 Albumin 3.5 Globulin 3.5 Albumin/Globulin Ratio 1.0 Urine Color Yellow Urine Clarity Cloudy Urine pH 6.0 Ur Specific [place] 1.020 Urine Protein 100 H Urine Glucose (UA) 1000 H Urine Ketones Negative Urine Occult Blood 250 H Urine Nitrite Negative Urine Bilirubin Negative Urine Urobilinogen Normal Ur Leukocyte Esterase 500 H Urine RBC 5-10 SEEN Urine WBC 25-50 SEEN Ur Squamous Epith Cells 0-5 SEEN Urine Bacteria 1+ Urine Mucus 0 SEEN Urine Yeast 2+ ABG Data ABG results: ABG 04/02/25 03:34 Specimen Type BALJIT Sample Site Not entered O2 % 40.0 VBG pH 7.46 H VBG pO2 36 VBG HCO3 32 H VBG Total CO2 33 VBG O2 Sat (Calc) 71 H VBG Base Excess 8 H POC Mix VBG pCO2 Pt Tmp 44.9 O2 Delivery Device BiPAP Clinical Comments 18. 9. Radiography Diagnostic Testing: Clinical Impression(s) from Imaging Studies Chest X-Ray 04/02/25 03:35 IMPRESSION: Interval development of asymmetric edema or pneumonia. Advise correlation. 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
[2025-04-02 03:58] LABS: Mucous, Urine 0 SEEN /hpf (<or=2+)
[2025-04-02 04:03] LABS: Color, Urine Yellow (Yellow); Glucose, Dipstick 1000 mg/dl (Normal); Ketone-Dipstick Negative (Negative); Leukocyte Esterase-Dipstick 500 /ul (Negative); Nitrite-Dipstick Negative (Negative); Occult Blood-Urine 250 /ul (Negative); Protein-Dipstick 100 mg/dl (Negative); Specific Gravity, Urine 1.020 (1.002-1.030); Urine Bilirubin Dipstick Negative (Negative)
[2025-04-02 04:11] LABS: Red Blood Cells-Urine 5-10 SEEN /hpf (0-5); Squamous Epithelial Cells - UA 0-5 SEEN /hpf (5-10); Yeast-Urine 2+ /hpf (None Seen)
--- NOTE | 2025-04-02 04:17 | HP.PCM.HOS_ITS ---
[facility] General Date of Admission: 04/02/25 Date of Service: 04/02/25 Chief Complaint: SOB. [facility] Narrative OLGA POLLARD, is a 80 F with a past medical history of essential hypertension; on metoprolol twice daily, hyperlipidemia; on pravastatin, obesity; with a BMI of 32.3 this admission, DM-2; of unknown control on sitagliptin, empagliflozin, tirzepatide, insulin glargine 20 units SQ twice daily and insulin lispro 10 units AC, diabetic neuropathy; on gabapentin nightly, history of diabetic retinopathy; s/p laser surgery on the Left eye (2005), history of tobacco abuse; with subsequent asthma/COPD on roflumilast, budesonide BID and ipratropium bromide/albuterol q. 6 hours, chronic hypoxic respiratory failure on 2L NC continuous at baseline, CAD; on baby aspirin daily, history of aortic stenosis, chronic systolic CHF; with reduced LVEF of ~35%; on sacubitril-valsartan and furosemide, history of DVT/PE; currently not on anticoagulation, PAD, CKD; stage IIIa, chronic microcytic anemia, history of Left-sided breast cancer; s/p lumpectomy (2003), history of multinodular nontoxic goiter, glaucoma; on netarsudil-latanoprost OU daily, history of neurogenic bladder, history of recurrent UTI's, history of colon polyp found to be tubular adenoma; s/p snare (2017), history of depression with anxiety; om diazepam BID prn, chronic constipation; on psyllium husk, GERD; on pantoprazole, OA; s/p Left THR along with foraminal stenosis of lumbar region with intermittent back spasms and recent admission here from March 21, 2025 to March 25, 2025 for treatment of UTI complicated by AE COPD with intractable pain, debility and vckkjsf-xs-njoduw with CT that showed atypical patchy airspace disease in bilateral posterior medial lungs more pronounced on the Left which was similar to previous CT causing patient to be placed on aspiration precautions with speech therapy consultation who now re-presents to [facility] ER complaining of shortness of breath. Ms. Pollard reported to the ER physician before she was placed on BiPAP that her symptoms began ~2 days prior to admission with dyspnea and minimal cough but progressed to shortness of breath at rest over the past 24 hours. EMS was then activated and she was given breathing treatments in addition to being placed on 4L NC with patient arriving in extremis dropping her oxygen saturation into the ~60% range on NRB causing her to be placed on BiPAP. She denied wheezing at home and has not required ventilator or BiPAP in the past. She also admitted to decreased urinary output without dysuria and bilateral lower extremity edema, Left greater than Right in the setting of severe chronic venous stasis with thickening and flaking of skin with patient to poor mobility at home stating, her legs don't want to get off the couch. She denies associated fever, chills, night sweats, runny nose, sore throat, ear pain, chest pain, palpitations, heart racing, abdominal pain, nausea, vomiting, diarrhea, constipation, arthralgias, myalgia, wounds, dysuria, hematuria, headache or rash. In the ER she underwent CXR that revealed interval development of asymmetric edema or Pneumonia with interval development of diffuse lung opacities with relative sparing of the Right upper lobe most pronounced in the cardiac region complicated by clinical evidence of AE COPD with Hondx-kf-Skzunoe Hypoxic Respiratory Failure requiring BiPAP with VBG showing pH 7.46 with VBG HCO3 32 mmol/L and VBG O2 of 71% compounded by AE of Chronic Systolic CHF; with LVEF ~35-40% and UA positive for Acute Cystitis; with microscopic hematuria with 2+ yeast and Elevated D-dimer of 2.43 present on admission and she was then admitted to the ICU for ongoing care for stay that is expected to extend beyond 2 midnights. [facility] Medical History COPD exacerbation Acute UTI Back muscle spasm Former smoker On home oxygen therapy Osteoporosis History of diabetes mellitus COPD exacerbation Hypoxia Elevated troponin Acute dyspnea COPD with exacerbation Anemia History of COPD Elevated brain natriuretic peptide (BNP) level Elevated troponin Acute hypoxemic respiratory failure Obesity (BMI 30.0-34.9) Elevated troponin Lactic acidosis Poor venous access Diabetic polyneuropathy Hypomagnesemia Debility Fracture of hip, left, closed Coronary artery disease Weakness Gastroenteritis Paronychia of left index finger Abscess Vaginal cyst Anxiety Depression Irregular heart beat Multiple thyroid nodules Postmenopausal bleeding Foraminal stenosis of lumbar region Lumbar spinal stenosis Diabetic retinopathy Colon polyp GERD (gastroesophageal reflux disease) Thyroid goiter Hyperlipidemia Hypokalemia Microcytic anemia Neurogenic bladder Hypophosphatemia Hypercalcemia Former smoker UTI (urinary tract infection) Iron deficiency anemia Aortic stenosis Hyponatremia Urine retention Chronic renal failure, stage 3 (moderate) Cellulitis and abscess of finger, unspecified Retinopathy Peripheral artery disease Leg weakness, bilateral GERD (gastroesophageal reflux disease) Chronic idiopathic constipation COPD (chronic obstructive pulmonary disease) Polypharmacy Hypertension Carpal tunnel syndrome of right wrist Strain of right rotator cuff capsule Rhinitis Urinary retention with incomplete bladder emptying Vitamin D deficiency Asthma Pruritus Goiter, nontoxic, multinodular Anemia Diabetes COPD (chronic obstructive pulmonary disease) History of constipation Hx of venous thrombosis and embolism History of malignant neoplasm of breast Hypertension Type 2 diabetes mellitus Asthma Home Medications ?Medication ?Instructions ?Recorded ?Last Taken ?Type aspirin 81 mg chewable tablet 81 mg PO DAILY HEART HEA LTH 01/21/16 01/15/25 History magnesium oxide 400 mg (241.3 mg 400 mg PO BID SUPPLEM ENT 08/16/18 01/15/25 History magnesium) tablet pantoprazole 40 mg tablet,delayed 40 mg PO DAILY ACID REFLUX 12/02/19 01/15/25 History release empagliflozin 10 mg tablet 10 mg PO DAILY DIABETES 01/15/25 History (Jardiance) sitagliptin phosphate 50 mg tablet 50 mg PO DAILY DIAB ETES 10/18/20 01/15/25 History (Januvia) multivitamin 1 tab PO DAILY VITAMIN 12/0601/15/25 History pravastatin 20 mg tablet 20 mg PO DAILY CHOLESTEROL 0 12/06/21 01/15/25 History ascorbic acid (vitamin C) 250 mg 250 mg PO DAILY SUPPL EMENT 08/13/23 01/15/25 History tablet (Vitamin C) roflumilast 500 mcg tablet 500 mcg PO DAILY COPD 08/1301/15/25 History insulin lispro 100 unit/mL 10 unit subcut TIDAC short acting 12/30/23 01/15/25 History subcutaneous pen (Humalog KwikPen insulin (U-100) Insulin) budesonide 160 mcg-glycopyr 9 2 inh inhalation BID franklyn athing 01/07/25 01/15/25 History mcg-formot 4.8 mcg/actuation HFA inhaler (Breztri Aerosphere) insulin glargine 100 unit/mL (3 20 unit subcut BID marco a betes 01/07/25 01/15/25 History mL) subcutaneous pen (Lantus Solostar U-100 Insulin) ipratropium bromide 21 mcg (0.03 1 - 2 spray intranasa l Q6H PRN 01/07/25 Unknown History %) nasal spray allergy symptoms lancets 28 gauge (TRUEplus Lancets) 01/07/25 Unknown History acetaminophen 500 mg tablet 1,000 mg PO Q6H PRN Pain S core 1-3 01/15/25 Unknown History azelastine 137 mcg (0.1 %) nasal 1 - 2 spray intranasa l BID nasal 01/15/25 01/15/25 History spray spray mecobalamin (vitamin B12) 1,000 1,000 mcg PO DAILY hea lth 01/15/25 01/15/25 History mcg chewable tablet (B12 Active) maintenance menthol 0.44 %-zinc oxide 20.6 % 1 applic topical 4X/D AY PRN skin 01/15/25 Unknown History topical ointment (CalaSoothe) irritation netarsudil 0.02 %-latanoprost 1 drp EACH EYE DAILY eye drops 01/15/25 01/15/25 History 0.005 % eye drops (Rocklatan) psyllium husk 0.4 gram capsule 0.4 g PO DAILY constipa tion 01/15/25 01/15/25 History (Daily Fiber) tirzepatide 5 mg/0.5 mL 5 mg subcut QWEEK diabetes 0 01/15/25 Unknown History subcutaneous pen injector (Baoro) potassium chloride 20 mEq 20 meq PO BID supplement 03/24 Unknown History tablet,extended release (K-Tab) ipratropium 0.5 mg-albuterol 3 mg 3 ml inhalation Q6H. RT sob #120 02/06/25 Unknown Rx (2.5 mg base)/3 mL nebulization amps soln albuterol sulfate 90 mcg/actuation 2 puff inhalation Q 6H PRN 02/09/25 Unknown History aerosol inhaler shortness of breath or wheez ing cetirizine 10 mg tablet 10 mg PO DAILY allergy 02/09 Unknown History hydroxyzine HCl 25 mg tablet 12.5 mg PO QHS allergies 02/09/25 Unknown History gabapentin 100 mg capsule 100 mg PO QHS NERVE PAIN 3 days 02/17/25 Unknown Rx #3 caps guaifenesin 600 mg tablet, 600 mg PO BID cough #0 tabs 02/17/25 Unknown Rx extended release 12 hr (Mucinex) diazepam 2 mg tablet 2 mg PO BID PRN muscle spasm #10 03/21/25 Unknown Rx TABLETS doxycycline hyclate 100 mg tablet 100 mg PO BID #14 ta bs 03/25/25 Unknown Rx furosemide 20 mg tablet (Lasix) 20 mg PO DAILY #30 tab s 03/25/25 Unknown Rx metoprolol tartrate 25 mg tablet 12.5 mg (1/2 x 25 mg) PO BID #30 03/25/25 Unknown Rx tabs sacubitril 24 mg-valsartan 26 mg 1 tab PO BID #60 tabs 03/25/25 Unknown Rx tablet (Entresto) Allergy/AdvReac Type Severity Reaction Status Date / Time adhesive tape (tape) Allergy NEEDS Verified 04/02/25 02:49 FOLLOW-UP cephalexin monohydrate (From Allergy Rash Verified 04/02/25 02:49 Keflex) clopidogrel bisulfate (From Allergy Other Verified 04/02/25 02:49 Plavix) oxycodone AdvReac Severe made me Verified 04/02/25 02:49 really crazy called emergency medicine physician assistant on people amoxicillin AdvReac YEAST Verified 04/02/25 02:49 INFECTION Family History Daughter Breast cancer Father Hypertension Sister Cancer Kidney disease Mother Pancreatic cancer Surgical History History of left hip hemiarthroplasty S/P fine needle aspiration (~10/2020) H/O dilation and curettage (~07/10/20) History of Achilles tendon repair Retinopathy History of lumpectomy of left breast Social History household members: spouse Smoking Status: Former smoker alcohol intake: never substance use type: does not use caffeine: Yes what type of physical activity do you participate in: none seatbelt use: always do you feel safe at home: Yes additional social history: [employer]- retired ROS ROS Narrative For review of systems was not possible with the patient on BiPAP at time of examination. Vital Signs Vital Signs Vital Signs: 04/02/25 02:50 04/02/25 02:55 04/02/25 03:00 Temperature 97.6 F L Temperature Source Temporal Pulse Rate 143 H 107 H Respiratory Rate 27 H 25 H Respiratory Effort Short of Breath Labored Nasal Flaring Pursed Lip Respiratory Depth Shallow Respiratory Pattern Tachypnea Blood Pressure 172/96 H Blood Pressure Mean 121 Pulse Ox 100 Oxygen Delivery Method Airvo Nasal Cannula Oxygen Flow Rate (L/min) 15 4 Fraction of Inspired Oxygen (FIO2) 04/02/25 03:00 04/02/25 03:05 04/02/25 03:12 Temperature Temperature Source Pulse Rate 116 H 106 H Respiratory Rate 33 H 30 H Respiratory Effort Respiratory Depth Respiratory Pattern Blood Pressure 183/87 H Blood Pressure Mean 119 Pulse Ox 100 100 100 Oxygen Delivery Method Bi-pap Bi-pap Oxygen Flow Rate (L/min) Fraction of Inspired Oxygen (FIO2) 40 40 40 04/02/25 03:43 04/02/25 03:51 04/02/25 04:00 Temperature Temperature Source Pulse Rate 96 95 Respiratory Rate 31 H 23 H Respiratory Effort Respiratory Depth Respiratory Pattern Blood Pressure 99/54 L 105/56 L Blood Pressure Mean 69 72 Pulse Ox 100 100 Oxygen Delivery Method Bi-pap Bi-pap Oxygen Flow Rate (L/min) Fraction of Inspired Oxygen (FIO2) 35 35 23 Weight Weight: 182 lb 1.629 oz Body Mass Index (BMI) 32.2 Physical Exam Const alert and oriented x3 Constitutional Narrative: Patient on BiPAP with limited ability to communicate. General Appearance: cooperative HEENT normocephalic, head/scalp atraumatic, hearing grossly normal bilaterally and moist oral mucous membranes Eyes PERRL, EOMs intact bilaterally and conjunctivae normal Neck no lymphadenopathy and supple Resp Resp Narrative: Diminished breath sounds throughout. Cardio regular rate and regular rhythm Cardio Narrative: Tachycardia noted in the ~106 bpm range. GI normal to inspection, nondistended, normoactive bowel sounds, soft to palpation, non-tender and non-distended Extremity Extremity Narrative: Patient has ~2+ bilateral lower extremity pitting edema, Left greater than Right with severe chronic venous stasis changes. Skin Skin Narrative: Patient has severe chronic venous stasis changes with thickening and flaking of skin. Neuro oriented x3, CN's II-XII intact bilaterally, moves all extremities and no focal motor deficits Neuro Narrative: Patient on BiPAP with limited ability to communicate but is appropriate. Sensorium / Orientation: awake, alert, oriented to person, oriented to place and oriented to time Speech: speech normal Psych Mood & Affect: anxious Results Medical Records Data Attestation: I reviewed the patient's medical records Lab / Micro Data Attestation: I reviewed the patient's lab results. 04/02/25 02:53 04/02/25 02:53 Labs: Laboratory Results - last 24 hr 04/02/25 02:53: WBC 9.0, RBC 3.43 L, Hgb 9.5 L, Hct 30.4 L, MCV 88.6, MCH 27.7, MCHC 31.3 L, RDW Std Deviation 51.5 H, RDW Coeff of Vijay 16.0 H, Plt Count 296, MPV 11.9, Immature Gran % (Auto) 0.200, Neut % (Auto) 35.5 L, Lymph % (Auto) 49.3 H, Upson % (Auto) 11.1 H, Eos % (Auto) 3.3, Baso % (Auto) 0.6, Absolute Neuts (auto) 3.2, Absolute Lymphs (auto) 4.43, Nucleated RBC % 0, PT 14.1, INR 1.1, APTT 28.6, Sodium 138, Potassium 4.3, Chloride 101, Carbon Dioxide 23.3, Anion Gap 13, BUN 14, Creatinine 0.97, Estim Creat Clear Calc 46.30 L, Est GFR (MDRD) Non-Af 59 L, BUN/Creatinine Ratio 14.4, Glucose 186 H, Calcium 10.3, Total Bilirubin 0.34, AST 181 H, ALT 53 H, Alkaline Phosphatase 132 H, Total Protein 6.9, Albumin 3.5, Globulin 3.5, Albumin/Globulin Ratio 1.0 04/02/25 03:11: Lactic Acid 1.8 04/02/25 03:53: Urine Color Yellow, Urine Clarity Cloudy, Urine pH 6.0, Ur Specific Lovell 1.020, Urine Protein 100 H, Urine Glucose (UA) 1000 H, Urine Ketones Negative, Urine Occult Blood 250 H, Urine Nitrite Negative, Urine Bilirubin Negative, Urine Urobilinogen Normal, Ur Leukocyte Esterase 500 H, Urine RBC 5-10 SEEN, Urine WBC 25-50 SEEN, Ur Squamous Epith Cells 0-5 SEEN, Urine Bacteria 1+, Urine Mucus 0 SEEN, Urine Yeast 2+ Micro: Microbiology 04/02/25 03:05 Mucosa - Nasopharyngeal SARS-CoV-2, Influenza & RSV (PCR) - Final ABG Data ABG results: ABG 04/02/25 03:34 Specimen Type BALJIT Sample Site Not entered O2 % 40.0 VBG pH 7.46 H VBG pO2 36 VBG HCO3 32 H VBG Total CO2 33 VBG O2 Sat (Calc) 71 H VBG Base Excess 8 H POC Mix VBG pCO2 Pt Tmp 44.9 O2 Delivery Device BiPAP Clinical Comments 18. 9. Imaging Radiology Impression Chest X-Ray 04/02/25 03:35 IMPRESSION: Interval development of asymmetric edema or pneumonia. Advise correlation. Reading Location: [facility] Imaging Services [address] [place] [address] [id number] Chest WITH Contrast MR#: [id number] Acct: [id number] Name: OLGA POLLARD Rep #: [id number] : 1945 F 80 From: Madelyn Amaya MD PCP: Dr. Ramone Smiley MD Status: ADM IN Study: Chest WITH Contrast Date of Exam: 04/02/25 Exam# [id number] Ordering Dr: Sandeep Carlton DO PROCEDURE: CHEST WITH CONTRAST 04/02/2025 REASON FOR EXAM: SEVERE SOB WITH AE COPD AND PNA SUSPECTED ON CXR. TECHNIQUE: CHEST WITH CONTRAST Coronal and Sagittal reconstruction series were provided. CONTRAST: Isovue 370 VOLUME: 75 mL One or more dose reduction techniques were used (e.g., Automated exposure control, adjustment of the mA and/or kV according to patient size, use of iterative reconstruction technique). RADIATION DOSE SUMMARY: DLP: 600 mGycm COMPARISON: Chest radiograph earlier same day. CT abdomen pelvis 03/21/2025. FINDINGS: Visualization is limited by motion artifact. Hardware: None. Lymph nodes: No axillary, mediastinal or hilar lymphadenopathy. Heart and Vasculature: The heart is normal in size without pericardial effusion. Severe coronary artery calcifications/prior stenting. Moderate calcific plaque of the aortic valve and thoracic aorta. The great vessels are normal in caliber. Lungs and Airways: Visualization is limited by motion artifact. Retained secretions within the central trachea. Patchy scattered ground-glass opacities throughout the bilateral lungs, greatest in the right lower lobe. Small bilateral pleural effusions and adjacent atelectasis. No large pneumothorax. Persistent findings of emphysema with scattered areas of scarring. Upper Abdomen: Severe plaque of the abdominal aorta. Probable cholelithiasis. Stable splenic hemangioma or cyst. Bones: Thoracic spondylosis. Mild body wall edema. Enlarged thyroid with bilateral nodules. CT/Chest WITH Contrast IMPRESSION: 1. Motion limited examination. Retained secretions within the central trachea, with bilateral ground-glass opacities, compatible with pneumonitis/aspiration pneumonia. 2. Small bilateral pleural effusions. 3. Enlarged thyroid with bilateral nodules. Nonemergent, outpatient thyroid ultrasound recommended if not recently performed for further evaluation. Reading Location: [id number] CC: Dr. Sandeep Carlton DO; Dr. Ramone Smiley MD ~ Md Do Resident Urgent Care: Signed Assessment & Plan Assessment/Plan (1) Pneumonia: QUALIFIERS: Laterality: bilateral Lung location: unspecified part of lung Pneumonia type: due to unspecified organism Qualified Code(s): J18.9 - Pneumonia, unspecified organism (2) COPD exacerbation: (3) Acute hypoxic respiratory failure: (4) Acute exacerbation of chronic heart failure: (5) Acute cystitis with hematuria: (6) Neurogenic bladder: (7) Obesity (BMI 30.0-34.9): (8) Elevated d-dimer: PLAN: Plan 1. CXR that revealed interval development of asymmetric edema or Pneumonia with interval development of diffuse lung opacities with relative sparing of the Right upper lobe most pronounced in the cardiac region - Admit to ICU. Continue empiric IV levofloxacin begun in ER and add IV metronidazole with suspected recurrent aspiration plus await culture and sensitivity data. Check urinary antigens to Streptococcus pneumonia and Legionella. Check sputum culture. Viral respiratory panel is pending at this time. Give prochlorperazine IV as needed for nausea and vomiting. Give acetaminophen as needed for pain or fever. Finally, we will place on aspiration precautions and reconsult speech therapy for swallow evaluation with suspected recurrent aspiration pneumonia with help appreciated in advance. 2. AE COPD with [id number] Hypoxic Respiratory Failure requiring BiPAP with VBG showing pH 7.46 with VBG HCO3 32 mmol/L and VBG O2 of 71% due to #1 - Resume IV methylprednisolone begun in the ER plus scheduled and as needed nebulizers as previous. ABG pending at this time given abnormal VBG and brittle condition. 3. AE of Chronic Systolic CHF; with reduced LVEF of ~35%; on sacubitril- valsartan and furosemide with NT pro-BNP II of 12,002 pg/mL present on admission with CXR suggestive of pulmonary edema complicating #1 & #2 - Start furosemide 40 mg IV BID. Check strict I's & O's. Give IV albumin x 1 with patient developing blood pressure ~100 mmHg systolic to allow for diuresis. Recent echocardiogram done on January 20, 2025 revealed LVEF ~35-40% with evidence of diastolic dysfunction and moderate global hypokinesis of the Left ventricle. 4. UA positive for Acute Cystitis; with microscopic hematuria with 2+ yeast and previous urine culture showing Enterococcus sensitive to levofloxacin in the setting of known Neurogenic Bladder and frequent UTI's compounding #1 - #3 - Patient was started on IV levofloxacin for #1 given her listed allergies to cephalexin (rash). Await culture and sensitivity data to see if patient will require treatment with antifungal agent. Consideration should be given to start Estrace cream vaginally for recurrent UTI's at time of discharge. 5. Obesity; with a BMI of 32.3 this admission adding to the burden of disease outlined from #1 - #4 - Weight loss will be recommended. Check TSH. This complicates her case and may hamper recovery. 6. Elevated D-dimer of 2.43 present on admission in setting of known history of DVT/PE; currently not on anticoagulation and with new lower extremity swelling noted adding to the medical complexity of #1 - #4 - CTA of chest with IV contrast pending at this time. Check bilateral lower extremity Doppler to evaluate for DVT. 7. Very recent similar admission here from March 21, 2025 to March 25, 2025 for treatment of UTI complicated by AE COPD with intractable pain, debility and [id number] with CT that showed atypical patchy airspace disease in bilateral posterior medial lungs more pronounced on the Left which was similar to previous CT causing patient to be placed on aspiration precautions with speech therapy consultation - Noted. 8. Essential hypertension; on metoprolol twice daily - Hold oral antihypertensives while on BiPAP. Give hydralazine IV as needed for systolic blood pressure greater than 160 mmHg. 9. Hyperlipidemia; on pravastatin - Restart statin if patient unable to tolerate oral intake off BiPAP. 10. DM-2; of unknown control on sitagliptin, empagliflozin, tirzepatide, insulin glargine 20 units SQ twice daily and insulin lispro 10 units AC plus diabetic neuropathy; on gabapentin nightly and history of diabetic retinopathy; s/p laser surgery on the Left eye (2005) - Keep NPO for now. Check FSBS q. 6 hours plus lowest-intensity SSI. Continue insulin glargine 15 units SQ twice daily but hold all other oral hypoglycemic and injectable agents until further notice. 11. CAD; on baby aspirin daily - Restart baby aspirin when patient is off BiPAP and can tolerate oral intake. 12. History of aortic stenosis - Noted. 13. PAD - Apparently stable. 14. CKD; stage IIIa - Stable with serum creatinine of 0.97 mg/dL, BUN of 14 mg/dL and EGFR of 59 mm/min present on admission. 15. Chronic microcytic anemia - Stable with hemoglobin of 9.5 g/dL and MCV of 88.6 fL present on admission. 16. History of Left-sided breast cancer; s/p lumpectomy (2003) - Noted. 17. History of multinodular nontoxic goiter - Noted. 18. Glaucoma; on netarsudil-latanoprost OU daily - Maintain present therapy. 19. History of colon polyp found to be tubular adenoma; s/p snare (2017) - Noted. 20. History of depression with anxiety; on diazepam BID prn - Give low-dose IV lorazepam as needed for breakthrough symptoms. 21. Chronic constipation; on psyllium husk - Restart when patient off BiPAP and can tolerate oral intake. 22. GERD; on pantoprazole - Continue with pantoprazole IV. 23. OA; s/p Left THR along with foraminal stenosis of lumbar region with intermittent back spasms - Stable. Give acetaminophen as needed for pain or fever in light of listed allergy to oxycodone. 24. DVT prophylaxis - We will give full-dose enoxaparin until PE definitively ruled out on CTA of chest and DVT ruled out on Doppler. Total time: Approximately (but not less than) 75 minutes. Charges/Coding Visit Charges Inpatient E&M: 80891 Init Hosp L3
--- NOTE | 2025-04-02 04:22 | CT_ITS ---
PROCEDURE: CHEST WITH CONTRAST 04/02/2025 REASON FOR EXAM: SEVERE SOB WITH AE COPD AND PNA SUSPECTED ON CXR. TECHNIQUE: CHEST WITH CONTRAST Coronal and Sagittal reconstruction series were provided. CONTRAST: Isovue 370 VOLUME: 75 mL One or more dose reduction techniques were used (e.g., Automated exposure control, adjustment of the mA and/or kV according to patient size, use of iterative reconstruction technique). RADIATION DOSE SUMMARY: DLP: 600 mGycm COMPARISON: Chest radiograph earlier same day. CT abdomen pelvis 03/21/2025. FINDINGS: Visualization is limited by motion artifact. Hardware: None. Lymph nodes: No axillary, mediastinal or hilar lymphadenopathy. Heart and Vasculature: The heart is normal in size without pericardial effusion. Severe coronary artery calcifications/prior stenting. Moderate calcific plaque of the aortic valve and thoracic aorta. The great vessels are normal in caliber. Lungs and Airways: Visualization is limited by motion artifact. Retained secretions within the central trachea. Patchy scattered ground-glass opacities throughout the bilateral lungs, greatest in the right lower lobe. Small bilateral pleural effusions and adjacent atelectasis. No large pneumothorax. Persistent findings of emphysema with scattered areas of scarring. Upper Abdomen: Severe plaque of the abdominal aorta. Probable cholelithiasis. Stable splenic hemangioma or cyst. Bones: Thoracic spondylosis. Mild body wall edema. Enlarged thyroid with bilateral nodules. CT/Chest WITH Contrast IMPRESSION: 1. Motion limited examination. Retained secretions within the central trachea, with bilateral ground-glass opacities, compatible with pneumonitis/aspiration pneumonia. 2. Small bilateral pleural effusions. 3. Enlarged thyroid with bilateral nodules. Nonemergent, outpatient thyroid ul trasound recommended if not recently performed for further evaluation. Reading Location: [id number]
[2025-04-02] MEDS: levoFLOXacin IV 750 MG/150 ML BAG 100 MG IV (04:31)
--- OUTSIDE RECORDS SUMMARY | 2025-04-02 04:33 | XMS RPT_ITS | CCD ---
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 Robert Allison Emergency Provider Dr. Heydi Amaya Admit Provider Dr. Heydi Amaya Other Provider Dr. Nestor Bartlett Attending Provider Dr. Nestor Bartlett Other Provider Dr. Ramone Vreas Other Provider Dr. Sandeep Denson Attending Provider Unavailable Dr. Sandeep Denson Other Provider Unavailable Dr. Ramone Smiley Primary Care Provider [phone] Queta Cortez Emergency Provider Dhruv, Dr. Baez Admit Provider Dr. Nestor Bartlett Other Provider Dr. Gabriel Byrd Other Provider Ray, Dr. Correa Attending Provider Ray, Dr. Correa Other Provider Baljit LEARY, Dr. Pack Primary Care Provider Baljit LAERY, Dr. Pack Attending Provider Baljit LEARY, Dr. Pack Referring Provider Carie RAYMUNDO, Dr. Long Emergency Provider Carie RAYMUNDO, Dr. Long Attending Provider Dr. Jeevan Yoder DO Emergency Provider Baljit LEARY, Dr. Pack Primary Care Provider Baljit LEARY, Dr. Pack Attending Provider [phone] Baljit LEARY, Dr. Pack Referring Provider Carie RAYMUNDO, Dr. Long Attending Provider Dr. Ethan Suarez DO Emergency Provider Dr. Jeevan Yoder DO [...] LEARY, Dr. Melba Gayle Other Provider [phone] Herrera LEARY, Dr. Hudson Attending Provider Baljit LEARY, Dr. Pack Primary Care Provider Baljit LEARY, Dr. Pack Attending Provider Baljit LEARY, Dr. Pack Referring Provider Irvin RAYMUNDO, Dr. Gregorio Emergency Provider Irvin RAYMUNDO, Dr. Gregorio Attending Provider Nash FRONT END DEVELOPER DESIGNER-C, Whitney Attending Provider Leydi LEARY, Dr. Rocha Emergency Provider Michi RAYMUNDO, Dr. Valdes Admit Provider Michi RAYMUNDO, Dr. Valdes Attending Provider Herrera LEARY, Dr. Hudson Attending Provider Antoni LEARY, Dr. Daniels Emergency Provider Tono Carbajal Attending Provider Keegan RAYMUNDO, Dr. Jones Emergency Provider Dhruv RAYMUNDO, Dr. Baez Admit Provider Dr. Nestor Bartlett DO Attending Provider Dhruv RAYMUNDO, Dr. Baez Other Provider Jose Luis LEARY, Dr. Soliz Attending Provider Jose Luis LEARY, Dr. Soliz Other Provider Billy Kothari MD Emergency Provider Billy Kothari MD Attending Provider Whitney Vasquez Referring Provider Nash JEAN-C, Whitney Other Provider Florentino LEARY, Dr. Saez Attending Provider Baljit LEARY, Dr. Pack Primary Care Provider Baljit LEARY, Dr. Pack Attending Provider Baljit LEARY, Dr. Pack Referring Provider Silvio LEARY, Dr. Barry Attending Provider Dr. Noé Currie DO Emergency Provider Kristin LEARY, Dr. Abigail Awad Admit Provider Kristin LEARY, Dr. Abigail Awad Attending Provider Silvio LEARY, Dr. Barry Attending Provider Kristin LEARY, Dr. Abigail Awad Other Provider Smiley, Ramone Primary Care Unavailable Lucio Borden Admitting Unavailable TerLucio doherty Consulting Unavailable Lucio Borden Attending Unavailable Nash FRONT END DEVELOPER DESIGNER, Whitney Attending Unavailable Nash FRONT END DEVELOPER DESIGNER, Whitney Referring Unavailable Smiley, Ramone Primary Care Unavailable Smiley, Ramone Referring Unavailable Smiley, Ramone Primary Care Unavailable Nash FRONT END DEVELOPER DESIGNER, Whitney Attending Unavailable Abigail Foster Admitting Unavailable Abigail Foster Consulting Unavailable Melba Hartmann Attending Unavailable Smiley, Ramone Primary Care Unavailable Mary Kate, Melba Nalini Consulting Unavailable Abigail Foster Attending Unavailable Lucio Borden Consulting Unavailable Lucio Borden Attending Unavailable Smiley, Ramone Primary Care Unavailable Lucio Borden Admitting Unavailable Sandeep Carlton Consulting Unavailable Sandeep Carlton Admitting Unavailable Smiley, Ramone Primary Care Unavailable Mary Kate, Melba Nalini Attending Unavailable Lucio Borden Consulting Unavailable Marcelina Soto Consulting Unavailgeremias Hartmann, Melba Nalini Consulting Unavailable Nestor Bartlett Attending Unavailable Nestor Bartlett Consulting Unavailable Nestor Bartlett Admitting Unavailable Smiley, Ramone Primary Care Unavailable Heydi Amaya Attending Unavailable Heydi Amaya Consulting Unavailable Lucio Borden Attending Unavailable Smiley, Ramone Primary Care Unavailable Smiley, Ramone Primary Care Unavailable TerLucio doherty Admitting Unavailable Lucio Borden Attending Unavailable Nestor Bartlett Admitting Unavailable Nestor Bartlett Consulting Unavailable Heydi Amaya Attending Unavailable Smiley, Ramone Primary Care Unavailable Smiley, Ramone Primary Care Unavailable Marcelina Soto Attending Unavailabl e Smiley, Ramone Referring Unavailable Smiley, Ramone Attending Unavailable Smiley, Ramone Primary Care Unavailable Asha Anguiano Referring Unavailable Asha Anguiano Attending Unavailable Smiley, Ramone Primary Care Unavailable Smiley, Ramone Referring Unavailable Smiley, Ramone Primary Care Unavailable Smiley, Ramone Attending Unavailable Billy Kothari Referring Unavailable Billy Kothari Attending Unavailable Smiley, Ramone Primary Care Unavailable Smiley, Ramone Primary Care Unavailable Ethan Suarez Attending Unavailable Smiley, Ramone Primary Care Unavailable Jeevan Yoder Attending Unavailable Smiley, Ramone Primary Care Unavailable Jg Bryan Attending Unavailable Kwaku Marcial Attending Unavailable Smiley, Ramone Primary Care Unavailable Jeevan Yoder Attending Unavailable Smiley, Ramone Primary Care Unavailable Lucio Borden Admitting Unavailable Lucio Borden Attending Unavailable Smiley, Ramone Primary Care Unavailable Melba Hartmann Attending Unavailable Sandeep Carlton Admitting Unavailable Sandeep Carlton Consulting Unavailable Smiley, Ramone Primary Care Unavailable Lucio Borden Consulting Unavailable Marcelina Soto Consulting Unavailabl e Smiley, Ramone Primary Care Unavailable Smiley, Ramone Referring Unavailable Smiley, Ramone Attending Unavailable Billy Kothari Attending Unavailable Smiley, Ramone Primary Care Unavailable Esdiane PA, Jason Referring Unavailable [place] PAJason Attending Unavailable Smiley, Ramone Primary Care Unavailable Smiley, Ramone Primary Care Unavailable Smiley, Ramone Referring Unavailable Smiley, Ramone Attending Unavailable Smiley, Ramone Referring Unavailable Smiley, Ramone Primary Care Unavailable Smiley, Ramone Attending Unavailable Abigail Foster Admitting Unavailable Abigali Foster Consulting Unavailable Melba Hartmann Attending Unavailable Smiley, Ramone Primary Care Unavailable Nash FRONT END DEVELOPER DESIGNER, Whitney Consulting Unavailable Nash FRONT END DEVELOPER DESIGNER, Whitney Referring Unavailable Se Good Attending Unavailable Smiley, Ramone Primary Care Unavailable Nash JEAN, Whitney Attending Unavailable Smiley, Ramone Primary Care Unavailable Sandeep Carlton Attending Unavailable Becca Silverman Attending Unavailable Allergies Allergy Classification Reported Allergen(s) Allergy Type Date of Onset Reaction(s) Facility (20 sources) Adhesive Tape; Translations: [ADHESIVE TAPE] allergy to substance 5 NEEDS FOLLOW-UP [facility] Work Phone: Comment on above: CLOTH TAPE (20 sources) amoxicillin; Translations: [amoxicillin] drug allergy 5 yeast infection [facility] Work Phone: (2 sources) cephalexin drug allergy 5 [facility] Work Phone: (2 sources) clopidogrel drug allergy 5 [facility] Work Phone: (20 sources) Cephalexin; Translations: [cephalexin monohydrate] Drug Allergy 2 [facility] (20 sources) clopidogrel; Translations: [clopidogrel bisulfate] Drug Allergy 1 Hives [facility] Work Phone: (2 sources) cloth tap Allergy to substance 2 Other [facility] Work Phone: (5 sources) Cephalexin Drug Allergy 5 [facility] Work Phone: (5 sources) tape [Other] Propensity to adverse reactions 5 [facility] (1 source) oxyCODONE Drug Allergy 5 [facility] (1 source) oxyCODONE Drug Allergy 5 [facility] Repository Medications Current Medications Medication Drug Class(es) Dates Sig (Normalized) Sig (Original) acetaminophen 325 mg / HYDROcodone bitartrate 5 mg oral tablet (20 sources) Opioid Agonist Start: 07-14-2022 take 1 tablet by mouth every six hours Hydrocodone-Aceta minophen Active 1 TABLET PO EVERY 6 HOURS 06 02July 14, 2022 Start: 11-22-2018 End: 11-29-2018 Start: 11-22-2018 End: 11-29-2018 Hydrocodone-Acetaminophen 1 TABLET tablet Discontinued 1 {tbl} PO EVERY 4 HOURS NEEDED as needed for Pain 06 06November 22, 2018 12:00am November 28, 2018 12:00am [...] 1 TABLET PO EVERY 4 HOURS NEEDED 20 October 19, 2018 1:00am October 26, 2018 1:09am [id number] actuat albuter ol 0.09 mg/actuat metered [...] AERS As needed - 90mcg/inh ALBUTEROL SULFATE [id number] Se Good MD Start: 08-29-2015 VENTOLIN HFA 1 08 (90 Base) MCG/ACT AERS As needed - 90mcg/inh ALBUTEROL SULFATE [id number] Se Good MD Start: 12-25-2014 End: 01-12-2018 take 1 puff(s) by inhalation every four hours as needed Albuterol Sulfate Discontinued 1 - 2 PUFF INHALATION EVERY 4 HOURS NEEDED December 25, 2014 10:20January 12, 2018 10:09am Start: 12-25-2014 End: 01-12-2018 [...] / ipratropium bromide 0.167 mg/ml inhalation solution (12 sources) Anticholinergic, beta2-Adrenergic Agonist Start: 02-06-2025 ascorbic [...] TABS One tablet by mouth daily ASPIRIN [id number] Kadie Álvarez RN Start: 08-23-2015 take 1 tablet by martin th once daily ASPIRIN 81 MG TABS One tablet by mouth daily ASPIRIN [id number] Kadie Álvarez RN take 1 tablet by [...] in each nostril twice daily AZELASTINE HCL [id number] Kadie Álvarez RN Start: 08-23-2015 take 1-2 spray(s) na deepali route twice daily ASTEPRO 0.15 % SOLN 1-2 sprays in each nostril twice daily AZELASTINE HCL [id number] Kadie Álvarez RN take 1-2 spray(s) na [...] MCG/ACT AERO 2 puffs daily BUDESONIDE-FORMOTEROL FUMARATE [id number] Kadie Álvarez RN Start: 08-23-2015 SYMBICORT 160- 4.5 MCG/ACT AERO 2 puffs daily BUDESONIDE-FORMOTEROL FUMARATE [id number] Kadie Álvarez RN take 1 puff(s) by in halation twice daily budesonide-formoterol (SYMBICORT) 160-4.5 mcg/actuation inhaler Indications: Other iron deficiency anemia Inhale 1 Puff as instructed twice daily. 0 Active Comment on above: Inhale 1 Puff as ins tructed twice daily. Ewhwrgiwsm-Mxsygusi-Vvsquhsh ol (19 sources) Corticosteroid, beta2-Adrenergic Agonist Start: 01-07-2025 Start: [...] 12:00am cetirizine hydrochloride 10 mg oral tablet (11 sources) Histamine-1 Receptor Antagonist Start: 02-09-2025 clindamycin [...] 16, 2018 1:00am December 06, 2021 3:27pm diazePAM 2 mg oral tablet (2 sources) Benzodiazepine Start: 03-21-2025 doxycycline hyclate 100 mg o ral tablet (20 sources) Tetracycline-class Drug Start: 03-25-2025 Start: 05-30-2024 End: 01-07-2025 Start: 12-06-2021 take 100 mg by mouth twice daily Doxycycline Monohydrate Active 100 MG PO TWICE A DAY December 06, 2021 3:22pm empagliflozin 10 mg oral tab let (20 sources) Sodium-Glucose Cotransporter 2 Inhibitor Start: 10-18-2020 furosemide 20 mg oral tablet (20 sources) Loop Diuretic Start: 02-06-2025 End: 03-25-2025 Start: 01-15-2025 End: 02-06-2025 Start: 01-24-2020 End: [...] 600 mg ext ended release oral tablet (7 sources) Start: 02-17-2025 hydrOXYzine hydrochloride 25 mg oral tablet (11 sources) Antihistamine Start: 02-09-2025 3 ml insulin glargine 100 un t/ml pen injector (19 sources) Insulin Analog Start: 01-07-2025 Start: 01-07-2025 [...] 0.021 mg /actuat metered dose nasal spray (19 sources) Anticholinergic Start: 01-07-2025 Start: 01-07-2025 Ipratropium [...] twice daily. mecobalamin 1 mg chewable tablet (18 sources) Start: 01-15-2025 Menthol / Zinc Oxide (1 source) Start: 01-15-2025 Menthol-Zinc O xide ([place]) 0.44-20.6 % ointment Active 1 NMA TOPICAL 4 TIMES DAILY as needed for skin irritation January 15, 2025 12:00am metoprolol tartrate 25 mg oral tablet (20 sources) beta-Adrenergic Jefe Start: 01-22-2016 End: 03-25-2025 take 1 tablet by mouth twice neftaly [...] {tbl} PO DAILY December 06, 2021 12:00am nitrofurantoin, macrocrystals 25 mg / nitrofurantoin, monohydrate 75 mg oral capsule (20 sources) Nitrofuran Antibacterial Start: 03-21-2025 Start: 07-19-2023 End: 07-30-2023 pantoprazole 40 mg delayed release oral tablet (20 sources) Proton Pump Inhibitor Start: 08-20-2018 End: 12-02-2019 Comment on above: Take 40 mg by mouth once daily. pravastatin sodium 20 mg ora l tablet (20 sources) HMG-CoA Reductase Inhibitor Start: 08-23-2015 End: 12-06-2021 Comment on above: Take 20 mg by mouth once daily. psyllium 400 mg oral capsule (20 sources) Start: 01-15-2025 Start: 12-06-2021 End: 07-18-2023 Start: 08-23-2015 PSYLLIUM HUSK 100 % POWD 3 times daily with water PSYLLIUM [id number] Kadie Álvarez RN Roflumilast (20 sources) Phosphodiesterase [...] mg / valsartan 26 mg oral tablet (17 sources) Angiotensin 2 Receptor Jefe Start: 02-07-2025 End: 03-25-2025 Start: 01-24-2025 SITagliptin 50 mg oral tablet (20 sources) Dipeptidyl Peptidase 4 Inhibitor Start: 01-21-2016 End: 10-18-2020 Comment on above: Take 50 mg by mouth once daily. Tirzepatide (Mounjaro) 5 mg/0.5 mL pen injector (1 source) Start: 01-15-2025 Tirzepatide (Mounjaro) 5 mg/0.5 mL pen injector Active 5 mg SC EVERY WEEK January 15, 2025 12:00am Vitamin Q-Ixtvtscvzgai-Fxkm ral (15 sources) Start: 12-02-2019 take 250 mg by mouth once daily Vitamin O-Idediagvowoa-Duc eral Active 250 MG PO DAILY December 02, 2019 11:46am Start: 12-02-2019 End: 07-18-2023 take 250 mg by mouth once daily Vitamin H-Xbzyyqavdtzc-Ehbxbrj Discontinued 250 MG PO DAILY December 02, 2019 12:00am July 19, 2023 12:34am Start: 12-02-2019 End: 07-18-2023 take 250 mg by mouth once daily Vitamin B-Lqetbfhzkfnn-Jlfdafr Discontinued 250 MG PO DAILY December 01, 2019 11:00pm July 18, 2023 11:34pm Start: 12-02-2019 take 250 mg by mouth once daily Vitamin X-Znxdxqxnfvdv-Hplyzkd Active 25 0 MG PO DAILY December 01, 2019 11:00pm Start: 12-02-2019 take 250 mg by mouth once daily Vitamin Q-Jnszgiqpevot-Blthwam Active 25 0 MG PO DAILY December [...] December 03, 2021 December 06, 2021 12:00am Tian[place] 9th, 2022 12:06am amLODIPine 5 mg oral tablet (4 sources) Dihydropyridine Calcium Channel Jefe Start: 08-23-2015 End: 08-29-2015 take 1 tablet by mouth once daily AMLODIPINE BESYLATE 5 MG TABS One tablet by mouth daily AMLODIPINE BESYLATE [id number] Se Good MD apixaban 5 mg oral tablet (20 sources) Factor Xa Inhibitor Start: 01-15-2024 End: 01-07-2025 Start: 12-30-2023 End: 01-15-2024 azithromycin 250 mg oral tab let (20 sources) Macrolide Antimicrobial Start: 01-07-2025 End: 01-15-2025 [...] lower legs 1-2 times daily BETAMETHASONE DIPROPIONATE [id number] Kadie Álvarez RN Start: 08-23-2015 BETAMETHASONE DIPROPIONATE 0.05 % LOTN apply to lower legs 1-2 times daily BETAMETHASONE DIPROPIONATE [id number] Kadie Álvarez RN bisacodyl 10 mg rectal suppo sitory (20 sources) Stimulant Laxative Start: 12-30-2023 End: 01-15-2024 Start: 08-23-2015 take 1 tablet by martin th once daily as needed BISACODYL EC 5 MG TBEC One tablet by mouth daily as needed BISACODYL [id number] Kadie Álvarez RN calcium carbonate (2 sources) Start: 08-23-2015 take 1 tablet by mouth once daily CALCIUM 600 600 MG TABS One tablet by mouth daily CALCIUM CARBONATE [id number] Kadie Álvarez RN Calcium Carbonate / vitamin D3 (5 sources) take 1 tablet by mouth once daily CALCIUM CARBONATE/VITAMIN D3 (CALCIUM 600 + D,3, ORAL) Indications: Other iron deficiency anemia Take 1 tablet by mouth once daily. 0 Active Comment on above: Take 1 tablet by [facility] once daily. chlorpheniramine maleate 4 mg oral tablet (2 sources) Histamine-1 Receptor Antagonist Start: 08-29-2015 CHLORPHENIRAMINE MALEATE 4 MG TABS As needed CHLORPHENIRAMINE MALEATE [id number] Se Good MD cholecalciferol 0.025 mg oral capsule (20 sources) Vitamin D Start: 01-08-2023 End: 07-18-2023 Start: 12-06-2021 End: 07-18-2023 cholecalciferol, vitamin D3, (VITAMIN D3 ORAL) (5 sources) take 2000 [IU] by mouth once daily cholecalciferol, vitamin D3, (VITAMIN D3 ORAL) Take 2,000 Units by mouth once daily. 0 Active Comment on above: Take 2,000 Units by mouth once daily. ciprofloxacin 500 mg oral tablet (20 sources) Quinolone Antimicrobial Start: End: Start: 08-17-2023 End: 09-21-2023 COD LIVER OIL CAPS (7 sources) Start: 08-23-2015 take 1 tablet by mouth once daily COD LIVER OIL CAPS One tablet by mouth daily COD LIVER OIL CAPS [id number] Kadie Álvarez RN take 1 capsule by mouth once neftaly ly Cod Liver Oil cap Indications: Other iron deficiency anemia Take 1 capsule by mouth once daily. 0 Active Comment on above: Take 1 capsule by mo [facility] once daily. Cod Liver Oil [...] 30, 2023 1:00am August 13, 2023 2:52pm 24 hr dilTIAZem hydrochloride 180 mg extended release oral capsule (20 sources) Calcium Channel Jefe Start: 01-07-2025 End: 03-25-2025 Start: 01-07-2025 take 1 capsule by mo [facility] every twenty-four hours Diltiazem Hcl 180 mg capsule,ext.rel 24h degradable Active mg PO January 07, 2025 12:00am Start: 08-16-2018 End: 01-07-2025 Start: 08-29-2015 take 1 tablet by martin th once daily DILT-XR 180 MG [id number] One tablet by mouth daily DILTIAZEM HCL [id number] Se Good MD Start: 08-29-2015 take 1 tablet by martin th once daily DILT-XR 180 MG [id number] One tablet by mouth daily DILTIAZEM HCL [id number] Se Good MD Comment on above: Take 180 mg by mouth once daily. docusate sodium 50 mg / sennosides, nursing home 8.6 mg oral tablet (20 sources) [...] 02, 2019 11:45am October 18, 2020 9:27am 0.5 ml dulaglutide 1.5 mg/ml auto-injector (20 [...] mg / spironolactone 25 mg oral tablet (11 sources) Thiazide Diuretic, Aldosterone Antagonist Start: 02-09-2025 [...] units SQ daily at bedtime INSULIN DETEMIR [id number] Mariana Finley RN Start: 08-23-2015 inject 28 [IU] by avila bcutaneous injection once daily LEVEMIR 100 UNIT/ML SOLN 28 units SQ daily INSULIN DETEMIR [id number] Kadie Álvarez RN Start: 08-23-2015 take 15 [IU] by subc utaneous injection once daily at bedtime LEVEMIR 100 UNIT/ML SOLN 15 units SQ daily at bedtime INSULIN DETEMIR [id number] Mariana Finley RN Start: 08-23-2015 take 28 [IU] by subc utaneous injection once daily LEVEMIR 100 UNIT/ML SOLN 28 units SQ daily INSULIN DETEMIR [id number] Kadie Álvarez RN inject 52 [IU] by [...] 130 mg/dl levoFLOXacin 750 mg oral tablet (17 sources) Quinolone Antimicrobial Start: 01-24-2025 End: 01-31-2025 linaclotide 0.29 mg oral capsule (2 sources) Guanylate Cyclase-C Agonist Start: 08-23-2015 take 1 tablet by mouth once daily LINZESS 290 MCG CAPS One tablet by mouth daily LINACLOTIDE [id number] Kadie Álvarez RN Start: 08-23-2015 take 1 tablet by martin th once daily LINZESS 290 MCG CAPS One tablet by mouth daily LINACLOTIDE [id number] Kadie Álvarez RN lisinopril 40 mg oral [...] One tablet by mouth daily MAGNESIUM CAPS [id number] Kadie Álvarez RN metFORMIN hydrochloride 1000 mg oral tablet (2 sources) Biguanide take 1 tablet by mouth twice daily GLUCOPHAGE 1000 MG TABS One tablet by mouth twice daily METFORMIN HCL [id number] Julita Chau NP metFORMIN hydrochloride 1000 mg / SITagliptin 50 mg oral tablet (4 sources) Biguanide, Dipeptidyl Peptidase 4 Inhibitor Start: 5 End: 5 take 1 tablet by mouth twice daily JANUMET 50-1000 MG TABS One tablet by mouth twice daily SITAGLIPTIN-METFORMI N HCL [id number] Se Good MD Start: 08-23-2015 End: 08-29-2015 take 1 tablet by mouth twice daily JANUMET 50-1000 MG TABS One tablet by mouth twice daily SITAGLIPTIN-METFORMIN HCL [id number] Se Good MD Start: 08-23-2015 take 1 tablet by martin th twice daily JANUMET 50-1000 MG TABS One tablet by mouth twice daily SITAGLIPTIN-METFORMIN HCL [id number] Kadie Álvarez RN miSOPROStol 0.2 mg oral tablet (20 sources) Prostaglandin E1 Analog Start: 06-28-2020 End: 10-18-2020 MULTIPLE VITAMIN (2 sources) Start: 08-23-2015 take 1 tablet by mouth once daily MULTIVITAMINS TABS One tablet by mouth daily MULTIPLE VITAMIN Kadie Álvarez RN naproxen 500 mg oral tablet (20 sources) Nonsteroidal Anti-inflammatory Drug Start: 03-09-2021 End: 08-14-2021 nystatin 100 unt/mg topical ointment (20 sources) [...] 07-30-2023 oxyCODONE hydrochloride 5 mg oral tablet (20 sources) Opioid Agonist Start: 12-30-2023 End: 01-15-2024 [...] 02, 2019 12:00am December 06, 2021 3:29pm predniSONE 20 mg oral tablet (20 sources) Start: 02-17-2025 End: 03-21-2025 Start: 02-06-2025 End: 02-17-2025 Start: 01-24-2025 Start: [...] 16, 2014 12:00am December 25, 2014 10:21am promethazine hydrochloride 1 2.5 mg oral tablet (20 sources) Phenothiazine Start: 01-24-2020 End: 10-18-2020 Start: 08-23-2015 take 1 tablet by martin th three times daily as needed PROMETHAZINE HCL 12.5 MG TABS One tablet by mouth three times daily as needed PROMETHAZINE HCL [id number] Kadie Álvarez RN PSYLLIUM HUSK, BULK, MISC [...] One tablet by mouth daily RANITIDINE HCL [id number] Kadie Álvarez RN Comment on above: Take 300 mg by mouth once daily. sennosides, nursing home 8.6 mg oral tablet (5 sources) take 1 tablet by mouth twice daily senna (SENNA LAXATIVE) 8.6 mg tab Take 8.6 mg by mouth twice daily. 0 Active Comment on above: Take 8.6 mg by mouth twice daily. sodium chloride 0.111 meq/ml nasal spray (5 sources) sodium chloride (SALINE MIST) 0.65 % nasal spray Use 1 [place] in the nose as needed. 0 Active Comment on above: Use 1 [place] in the n ose as needed. sucralfate [...] End: 10-18-2020 Start: 01-24-2020 End: 10-18-2020 Tiotropium Tyler (Spiriva With Handihaler) 18 mcg capsule, w/inhalation device Discontinued 1 NMA INHALATION NEEDED as needed for Sob &/Or Wheezing January 24, 2020 12:00am October 18, 2020 9:28am puncture 1 cap using device; one dose = 2 inhalations Start: 01-24-2020 End: 10-18-2020 Tiotropium Tyler (Spiriva With Handihaler) 18 mcg capsule, w/inhalation device Discontinued 1 PUFF INHALATION NEEDED January 24, 2020 12:00am October 18, 2020 9:28am puncture 1 cap using device; one dose = 2 inhalations Start: 08-23-2015 SPIRIVA HANDIH ALER 18 MCG CAPS as needed TIOTROPIUM BROMIDE MONOHYDRATE [id number] Kadie Álvarez RN Start: 08-23-2015 SPIRIVA HANDIH ALER 18 MCG CAPS as needed TIOTROPIUM BROMIDE MONOHYDRATE [id number] Kadie Álvarez RN Start: 12-25-2014 End: 01-12-2018 [...] 10:27am triamcinolone acetonide 0.001 mg/mg topical ointment (19 sources) Corticosteroid Start: 01-07-2025 End: 01-15-2025 Vitamin X-Zzwawygohccg-Wvchvkp 500 MG tablet,chewable (2 sources) Start: 12-02-2019 End: 07-18-2023 Vitamin G-Osbczqvvgfcw-Trussuu 500 MG tablet,chewable Discontinued 250 mg PO DAILY December 02, 2019 12:00am July 19, 2023 12:34am Problems Active Problems Problem Classification Problem Date Documented Da te Episodic/Chronic Abdominal pain (5 sources) Abdominal pain; Translations: [Unspecified abdominal pain] 11-13-2006 Episodic Acute and unspecified renal failure (20 sources) Acute renal failure syndrome; Translations: [Acute kidney failure, unspecified] 12-02-2019 Episodic Acute bronchitis (19 sources) Acute exacerbation of chronic bronchitis; Translations: [...] on above: lumpectomy in 2003 Cardiac dysrhythmias (17 sources) Irregular heart beat; Translations: [Cardiac arrhythmia, [...] Coronary arteriosclerosis; Translations: [Atherosclerotic heart disease of [place] coronary artery without angina pectoris] Onset: 5 [...] in Jul 2018....tubular adenoma Other circulatory disease (19 sources) H/O: heart disorder; Translations: [Personal history of other diseases of the circulatory system] 06-07-2024 Episodic Other circulatory disease (11 sources) H/O: heart failure; Translations: [Personal history [...] Chronic Other diseases of veins and lymphatics (19 sources) Difficult venous access; Translations: [Other specified disorders of veins] 01-01-2024 Episodic Other gastrointestinal disorders (5 sources) Malabsorption - iron; Translations: [Intestinal malabsorption, unspecified] Onset: 1 02-06-2021 Chronic Other gastrointestinal disorders (20 sources) H/O: gastrointestinal disease; Translations: [Personal history of other diseases of the digestive system] 01-24-2020 Episodic Other gastrointestinal disorders (19 sources) Acute constipation; Translations: [Constipation, unspecified] 06-07-2024 Episodic Other lower respiratory disease (20 sources) Dyspnea; Translations: [Shortness of breath] Onset: 5 08-23-2015 Episodic Other lower respiratory disease (19 sources) Cough; Translations: [Cough] 01-07-2025 Episodic Other lower respiratory disease (20 sources) History of chronic obstructive airway disease; Translations: [Personal history of other diseases of the respiratory system] 02-04-2025 Episodic Other lower respiratory disease (20 sources) Hypoxia; Translations: [Hypoxemia] 02-09-2025 Episodic Other [...] Chronic Other nutritional; endocrine; and metabolic disorders (19 sources) Hypomagnesemia; Translations: [Hypomagnesemia] 12-30-2023 Chronic Other nutritional; endocrine; and metabolic disorders (20 sources) Obese class I; Translations: [Class 1 obesity] 01-20-2025 Chronic Other nutritional; endocrine; and metabolic disorders (20 sources) H/O: raised blood lipids; Translations: [Personal history of other endocrine, nutritional and metabolic disease] 01-28-2023 Episodic Other nutritional; endocrine; and metabolic disorders (20 sources) H/O: diabetes mellitus; Translations: [Personal history [...] 5 06-09-2005 Chronic Other upper respiratory disease (19 sources) Acute bronchospasm; Translations: [Acute bronchospasm] 06-07-2024 [...] of procedure; Translations: [Other specified health status] 11-19-2023 Episodic Residual codes; unclassified (5 sources) Finding related to ability to manage personal health care; Translations: [Other specified health status] 03-04-2025 Episodic Respiratory failure; insufficiency; arrest (adult) (1 source) Chronic respiratory failure with hypercapnia; Translations: [Chronic respiratory failure with hypercapnia] Onset: 5 Chronic Respiratory failure; insufficiency; arrest (adult) (20 sources) Cwety-jx-flofqfe respiratory failure; Translations: [Acute respiratory failure with [...] [Urinary tract infection, site not specified] Onset: 5 07-10-2020 Episodic Past or Other Problems Problem [...] Range Facility Basic Metabolic Profile (BMP )on 03-30-2025 BUN Normal 4-19 [facility] Comment on above: Result Comment: Canc elled via OM: Order cancelled - Patient discharged Performed By: #### L 100.0100, L500.2500 ####[facility] [address] [place], [address] BUN/CRE Normal 10-20 [facility] Comment on above: Result Comment: Canc elled via OM: Order cancelled - Patient discharged Performed By: #### L 100.0100, L500.2500 ####[facility] [address] [place], [address] Calcium Normal 7.6-11.0 [facility] Comment on above: Result Comment: Canc elled via OM: Order cancelled - Patient discharged Performed By: #### L 100.0100, L500.2500 ####[facility] [address] [place], [address] CL Normal 98-108 [facility] Comment on above: Result Comment: Canc elled via OM: Order cancelled - Patient discharged Performed By: #### L 100.0100, L500.2500 ####[facility] [address] [place], [address] CO2 Normal 21.0-32.0 [facility] Comment on above: Result Comment: Canc elled via OM: Order cancelled - Patient discharged Performed By: #### L 100.0100, L500.2500 ####[facility] [address] [place], [address] CREAT,SERUM Normal 0.70-1.20 [facility] Comment on above: Result Comment: Canc elled via OM: Order cancelled - Patient discharged Performed By: #### L 100.0100, L500.2500 ####[facility] [address] [place], [address] eGFR Normal >60 [facility] Comment on above: Result Comment: Canc elled via OM: Order cancelled - Patient discharged Performed By: #### L 100.0100, L500.2500 ####[facility] [address] [place], [address] GAP Normal 5-15 [facility] Comment on above: Result Comment: Canc elled via OM: Order cancelled - Patient discharged Performed By: #### L 100.0100, L500.2500 ####[facility] [address] [place], [address] GLU Normal 70-99 [facility] Comment on above: Result Comment: Canc elled via OM: Order cancelled - Patient discharged Performed By: #### L 100.0100, L500.2500 ####[facility] [address] [place], [address] Potassium Normal 3.3-5.1 [facility] Comment on above: Result Comment: Canc elled via OM: Order cancelled - Patient discharged Performed By: #### L 100.0100, L500.2500 ####[facility] [address] [place], [address] Basic Metabolic Profile (BMP) Normal 133-145 [facility] Comment on above: Result Comment: Canc elled via OM: Order cancelled - Patient discharged Performed By: #### L 100.0100, L500.2500 ####[facility] [address] [place], [address] CBC W/Diff, Automatedon 07-3 Absolute Neut Normal 2.0-7.7 [facility] Comment on above: Result Comment: Canc elled via OM: Order cancelled - Patient discharged Performed By: #### L 100.0100, L500.2500 ####[facility] [address] [place], [address] HCT Normal 37-47 [facility] Comment on above: Result Comment: Canc elled via OM: Order cancelled - Patient discharged Performed By: #### L 100.0100, L500.2500 ####[facility] [address] [place], [address] HGB Normal 12.0-15.0 [facility] Comment on above: Result Comment: Canc elled via OM: Order cancelled - Patient discharged Performed By: #### L 100.0100, L500.2500 ####[facility] [address] [place], [address] MCH Normal 27.0-32.0 [facility] Comment on above: Result Comment: Canc elled via OM: Order cancelled - Patient discharged Performed By: #### L 100.0100, L500.2500 ####[facility] [address] [place], [address] MCHC Normal 32-36 [facility] Comment on above: Result Comment: Canc elled via OM: Order cancelled - Patient discharged Performed By: #### L 100.0100, L500.2500 ####[facility] [address] [place], [address] MCV Normal 81-99 [facility] Comment on above: Result Comment: Canc elled via OM: Order cancelled - Patient discharged Performed By: #### L 100.0100, L500.2500 ####[facility] [address] [place], [address] NEUT% Normal 47-70 [facility] Comment on above: Result Comment: Canc elled via OM: Order cancelled - Patient discharged Performed By: #### L 100.0100, L500.2500 ####[facility] [address] [place], [address] PLT Normal 150-450 [facility] Comment on above: Result Comment: Canc elled via OM: Order cancelled - Patient discharged Performed By: #### L 100.0100, L500.2500 ####[facility] [address] [place], [address] RBC Normal 4.2-5.4 [facility] Comment on above: Result Comment: Canc elled via OM: Order cancelled - Patient discharged Performed By: #### L 100.0100, L500.2500 ####[facility] [address] [place], [address] RDW CV Normal 11.6-14.6 [facility] Comment on above: Result Comment: Canc elled via OM: Order cancelled - Patient discharged Performed By: #### L 100.0100, L500.2500 ####[facility] [address] [place], [address] RDW SD Normal 35.1-43.9 [facility] Comment on above: Result Comment: Canc elled via OM: Order cancelled - Patient discharged Performed By: #### L 100.0100, L500.2500 ####[facility] [address] [place], [address] WBC Normal 4.4-11.0 [facility] Comment on above: Result Comment: Canc elled via OM: Order cancelled - Patient discharged Performed By: #### L 100.0100, L500.2500 ####[facility] [address] [place], [address] Basic Metabolic Profile (BMP )on 03-29-2025 BUN Normal 4-19 [facility] Comment on above: Result Comment: Canc elled via OM: Order cancelled - Patient discharged Performed By: #### L 500.2500, L100.0100 ####[facility] [address] [place], [address] BUN/CRE Normal 10-20 [facility] Comment on above: Result Comment: Canc elled via OM: Order cancelled - Patient discharged Performed By: #### L 500.2500, L100.0100 ####[facility] [address] [place], [address] Calcium Normal 7.6-11.0 [facility] Comment on above: Result Comment: Canc elled via OM: Order cancelled - Patient discharged Performed By: #### L 500.2500, L100.0100 ####[facility] [address] [place], [address] CL Normal 98-108 [facility] Comment on above: Result Comment: Canc elled via OM: Order cancelled - Patient discharged Performed By: #### L 500.2500, L100.0100 ####[facility] [address] [place], [address] CO2 Normal 21.0-32.0 [facility] Comment on above: Result Comment: Canc elled via OM: Order cancelled - Patient discharged Performed By: #### L 500.2500, L100.0100 ####[facility] [address] [place], [address] CREAT,SERUM Normal 0.70-1.20 [facility] Comment on above: Result Comment: Canc elled via OM: Order cancelled - Patient discharged Performed By: #### L 500.2500, L100.0100 ####[facility] [address] [place], [address] eGFR Normal >60 [facility] Comment on above: Result Comment: Canc elled via OM: Order cancelled - Patient discharged Performed By: #### L 500.2500, L100.0100 ####[facility] [address] [place], [address] GAP Normal 5-15 [facility] Comment on above: Result Comment: Canc elled via OM: Order cancelled - Patient discharged Performed By: #### L 500.2500, L100.0100 ####[facility] [address] [place], [address] GLU Normal 70-99 [facility] Comment on above: Result Comment: Canc elled via OM: Order cancelled - Patient discharged Performed By: #### L 500.2500, L100.0100 ####[facility] [address] [place], [address] Potassium Normal 3.3-5.1 [facility] Comment on above: Result Comment: Canc elled via OM: Order cancelled - Patient discharged Performed By: #### L 500.2500, L100.0100 ####[facility] [address] [place], [address] Basic Metabolic Profile (BMP) Normal 133-145 [facility] Comment on above: Result Comment: Canc elled via OM: Order cancelled - Patient discharged Performed By: #### L 500.2500, L100.0100 ####[facility] [address] [place], [address] CBC W/Diff, Automatedon 07-3 0-2024 Absolute Neut Normal 2.0-7.7 [facility] Comment on above: Result Comment: Canc elled via OM: Order cancelled - Patient discharged Performed By: #### L 500.2500, L100.0100 ####[facility] [address] [place], [address] HCT Normal 37-47 [facility] Comment on above: Result Comment: Canc elled via OM: Order cancelled - Patient discharged Performed By: #### L 500.2500, L100.0100 ####[facility] [address] [place], [address] HGB Normal 12.0-15.0 [facility] Comment on above: Result Comment: Canc elled via OM: Order cancelled - Patient discharged Performed By: #### L 500.2500, L100.0100 ####[facility] [address] [place], [address] MCH Normal 27.0-32.0 [facility] Comment on above: Result Comment: Canc elled via OM: Order cancelled - Patient discharged Performed By: #### L 500.2500, L100.0100 ####[facility] [address] [place], [address] MCHC Normal 32-36 [facility] Comment on above: Result Comment: Canc elled via OM: Order cancelled - Patient discharged Performed By: #### L 500.2500, L100.0100 ####[facility] [address] [place], [address] MCV Normal 81-99 [facility] Comment on above: Result Comment: Canc elled via OM: Order cancelled - Patient discharged Performed By: #### L 500.2500, L100.0100 ####[facility] [address] [place], [address] NEUT% Normal 47-70 [facility] Comment on above: Result Comment: Canc elled via OM: Order cancelled - Patient discharged Performed By: #### L 500.2500, L100.0100 ####[facility] [address] [place], [address] PLT Normal 150-450 [facility] Comment on above: Result Comment: Canc elled via OM: Order cancelled - Patient discharged Performed By: #### L 500.2500, L100.0100 ####[facility] [address] [place], [address] RBC Normal 4.2-5.4 [facility] Comment on above: Result Comment: Canc elled via OM: Order cancelled - Patient discharged Performed By: #### L 500.2500, L100.0100 ####[facility] [address] [place], [address] RDW CV Normal 11.6-14.6 [facility] Comment on above: Result Comment: Canc elled via OM: Order cancelled - Patient discharged Performed By: #### L 500.2500, L100.0100 ####[facility] [address] [place], [address] RDW SD Normal 35.1-43.9 [facility] Comment on above: Result Comment: Canc elled via OM: Order cancelled - Patient discharged Performed By: #### L 500.2500, L100.0100 ####[facility] [address] [place], [address] WBC Normal 4.4-11.0 [facility] Comment on above: Result Comment: Canc elled via OM: Order cancelled - Patient discharged Performed By: #### L 500.2500, L100.0100 ####[facility] [address] [place], [address] Basic Metabolic Profile (BMP )on 03-28-2025 BUN Normal 4-19 [facility] Comment on above: Result Comment: Canc elled via OM: Order cancelled - Patient discharged Performed By: #### L 100.0100, L500.2500 ####[facility] [address] [place], [address] BUN/CRE Normal 10-20 [facility] Comment on above: Result Comment: Canc elled via OM: Order cancelled - Patient discharged Performed By: #### L 100.0100, L500.2500 ####[facility] [address] [place], [address] Calcium Normal 7.6-11.0 [facility] Comment on above: Result Comment: Canc elled via OM: Order cancelled - Patient discharged Performed By: #### L 100.0100, L500.2500 ####[facility] [address] [place], [address] CL Normal 98-108 [facility] Comment on above: Result Comment: Canc elled via OM: Order cancelled - Patient discharged Performed By: #### L 100.0100, L500.2500 ####[facility] [address] [place], [address] CO2 Normal 21.0-32.0 [facility] Comment on above: Result Comment: Canc elled via OM: Order cancelled - Patient discharged Performed By: #### L 100.0100, L500.2500 ####[facility] [address] [place], [address] CREAT,SERUM Normal 0.70-1.20 [facility] Comment on above: Result Comment: Canc elled via OM: Order cancelled - Patient discharged Performed By: #### L 100.0100, L500.2500 ####[facility] [address] [place], [address] eGFR Normal >60 [facility] Comment on above: Result Comment: Canc elled via OM: Order cancelled - Patient discharged Performed By: #### L 100.0100, L500.2500 ####[facility] [address] [place], [address] GAP Normal 5-15 [facility] Comment on above: Result Comment: Canc elled via OM: Order cancelled - Patient discharged Performed By: #### L 100.0100, L500.2500 ####[facility] [address] [place], [address] GLU Normal 70-99 [facility] Comment on above: Result Comment: Canc elled via OM: Order cancelled - Patient discharged Performed By: #### L 100.0100, L500.2500 ####[facility] [address] [place], [address] Potassium Normal 3.3-5.1 [facility] Comment on above: Result Comment: Canc elled via OM: Order cancelled - Patient discharged Performed By: #### L 100.0100, L500.2500 ####[facility] [address] [place], [address] Basic Metabolic Profile (BMP) Normal 133-145 [facility] Comment on above: Result Comment: Canc elled via OM: Order cancelled - Patient discharged Performed By: #### L 100.0100, L500.2500 ####[facility] [address] [place], [address] CBC W/Diff, Automatedon 07-2 Absolute Neut Normal 2.0-7.7 [facility] Comment on above: Result Comment: Canc elled via OM: Order cancelled - Patient discharged Performed By: #### L 100.0100, L500.2500 ####[facility] [address] [place], [address] HCT Normal 37-47 [facility] Comment on above: Result Comment: Canc elled via OM: Order cancelled - Patient discharged Performed By: #### L 100.0100, L500.2500 ####[facility] [address] [place], [address] HGB Normal 12.0-15.0 [facility] Comment on above: Result Comment: Canc elled via OM: Order cancelled - Patient discharged Performed By: #### L 100.0100, L500.2500 ####[facility] [address] [place], [address] MCH Normal 27.0-32.0 [facility] Comment on above: Result Comment: Canc elled via OM: Order cancelled - Patient discharged Performed By: #### L 100.0100, L500.2500 ####[facility] [address] [place], [address] MCHC Normal 32-36 [facility] Comment on above: Result Comment: Canc elled via OM: Order cancelled - Patient discharged Performed By: #### L 100.0100, L500.2500 ####[facility] [address] [place], [address] MCV Normal 81-99 [facility] Comment on above: Result Comment: Canc elled via OM: Order cancelled - Patient discharged Performed By: #### L 100.0100, L500.2500 ####[facility] [address] [place], [address] NEUT% Normal 47-70 [facility] Comment on above: Result Comment: Canc elled via OM: Order cancelled - Patient discharged Performed By: #### L 100.0100, L500.2500 ####[facility] [address] [place], [address] PLT Normal 150-450 [facility] Comment on above: Result Comment: Canc elled via OM: Order cancelled - Patient discharged Performed By: #### L 100.0100, L500.2500 ####[facility] [address] [place], [address] RBC Normal 4.2-5.4 [facility] Comment on above: Result Comment: Canc elled via OM: Order cancelled - Patient discharged Performed By: #### L 100.0100, L500.2500 ####[facility] [address] [place], [address] RDW CV Normal 11.6-14.6 [facility] Comment on above: Result Comment: Canc elled via OM: Order cancelled - Patient discharged Performed By: #### L 100.0100, L500.2500 ####[facility] [address] [place], [address] RDW SD Normal 35.1-43.9 [facility] Comment on above: Result Comment: Canc elled via OM: Order cancelled - Patient discharged Performed By: #### L 100.0100, L500.2500 ####[facility] [address] [place], [address] WBC Normal 4.4-11.0 [facility] Comment on above: Result Comment: Canc elled via OM: Order cancelled - Patient discharged Performed By: #### L 100.0100, L500.2500 ####[facility] [address] [place], [address] Basic Metabolic Profile (BMP )on 03-27-2025 BUN Normal 4-19 [facility] Comment on above: Result Comment: Canc elled via OM: Order cancelled - Patient discharged Performed By: #### L 500.2500, L100.0100 ####[facility] [address] [place], [address] BUN/CRE Normal 10-20 [facility] Comment on above: Result Comment: Canc elled via OM: Order cancelled - Patient discharged Performed By: #### L 500.2500, L100.0100 ####[facility] [address] [place], [address] Calcium Normal 7.6-11.0 [facility] Comment on above: Result Comment: Canc elled via OM: Order cancelled - Patient discharged Performed By: #### L 500.2500, L100.0100 ####[facility] [address] [place], [address] CL Normal 98-108 [facility] Comment on above: Result Comment: Canc elled via OM: Order cancelled - Patient discharged Performed By: #### L 500.2500, L100.0100 ####[facility] [address] [place], [address] CO2 Normal 21.0-32.0 [facility] Comment on above: Result Comment: Canc elled via OM: Order cancelled - Patient discharged Performed By: #### L 500.2500, L100.0100 ####[facility] [address] [place], [address] CREAT,SERUM Normal 0.70-1.20 [facility] Comment on above: Result Comment: Canc elled via OM: Order cancelled - Patient discharged Performed By: #### L 500.2500, L100.0100 ####[facility] [address] [place], [address] eGFR Normal >60 [facility] Comment on above: Result Comment: Canc elled via OM: Order cancelled - Patient discharged Performed By: #### L 500.2500, L100.0100 ####[facility] [address] [place], [address] GAP Normal 5-15 [facility] Comment on above: Result Comment: Canc elled via OM: Order cancelled - Patient discharged Performed By: #### L 500.2500, L100.0100 ####[facility] [address] [place], [address] GLU Normal 70-99 [facility] Comment on above: Result Comment: Canc elled via OM: Order cancelled - Patient discharged Performed By: #### L 500.2500, L100.0100 ####[facility] [address] [place], [address] Potassium Normal 3.3-5.1 [facility] Comment on above: Result Comment: Canc elled via OM: Order cancelled - Patient discharged Performed By: #### L 500.2500, L100.0100 ####[facility] [address] [place], [address] Basic Metabolic Profile (BMP) Normal 133-145 [facility] Comment on above: Result Comment: Canc elled via OM: Order cancelled - Patient discharged Performed By: #### L 500.2500, L100.0100 ####[facility] [address] [place], [address] CBC W/Diff, Automatedon 07-2 Absolute Neut Normal 2.0-7.7 [facility] Comment on above: Result Comment: Canc elled via OM: Order cancelled - Patient discharged Performed By: #### L 500.2500, L100.0100 ####[facility] [address] [place], [address] HCT Normal 37-47 [facility] Comment on above: Result Comment: Canc elled via OM: Order cancelled - Patient discharged Performed By: #### L 500.2500, L100.0100 ####[facility] [address] [place], [address] HGB Normal 12.0-15.0 [facility] Comment on above: Result Comment: Canc elled via OM: Order cancelled - Patient discharged Performed By: #### L 500.2500, L100.0100 ####[facility] [address] [place], [address] MCH Normal 27.0-32.0 [facility] Comment on above: Result Comment: Canc elled via OM: Order cancelled - Patient discharged Performed By: #### L 500.2500, L100.0100 ####[facility] [address] [place], [address] MCHC Normal 32-36 [facility] Comment on above: Result Comment: Canc elled via OM: Order cancelled - Patient discharged Performed By: #### L 500.2500, L100.0100 ####[facility] [address] [place], [address] MCV Normal 81-99 [facility] Comment on above: Result Comment: Canc elled via OM: Order cancelled - Patient discharged Performed By: #### L 500.2500, L100.0100 ####[facility] [address] [place], [address] NEUT% Normal 47-70 [facility] Comment on above: Result Comment: Canc elled via OM: Order cancelled - Patient discharged Performed By: #### L 500.2500, L100.0100 ####[facility] [address] [place], [address] PLT Normal 150-450 [facility] Comment on above: Result Comment: Canc elled via OM: Order cancelled - Patient discharged Performed By: #### L 500.2500, L100.0100 ####[facility] [address] [place], [address] RBC Normal 4.2-5.4 [facility] Comment on above: Result Comment: Canc elled via OM: Order cancelled - Patient discharged Performed By: #### L 500.2500, L100.0100 ####[facility] [address] [place], [address] RDW CV Normal 11.6-14.6 [facility] Comment on above: Result Comment: Canc elled via OM: Order cancelled - Patient discharged Performed By: #### L 500.2500, L100.0100 ####[facility] [address] [place], [address] RDW SD Normal 35.1-43.9 [facility] Comment on above: Result Comment: Canc elled via OM: Order cancelled - Patient discharged Performed By: #### L 500.2500, L100.0100 ####[facility] [address] [place], [address] WBC Normal 4.4-11.0 [facility] Comment on above: Result Comment: Canc elled via OM: Order cancelled - Patient discharged Performed By: #### L 500.2500, L100.0100 ####[facility] [address] [place], [address] Basic Metabolic Profile (BMP )on 03-26-2025 BUN Normal 4-19 [facility] Comment on above: Result Comment: Canc elled via OM: Order cancelled - Patient discharged Performed By: #### L 500.2500, L100.0100 ####[facility] [address] [place], [address] BUN/CRE Normal 10-20 [facility] Comment on above: Result Comment: Canc elled via OM: Order cancelled - Patient discharged Performed By: #### L 500.2500, L100.0100 ####[facility] [address] [place], [address] Calcium Normal 7.6-11.0 [facility] Comment on above: Result Comment: Canc elled via OM: Order cancelled - Patient discharged Performed By: #### L 500.2500, L100.0100 ####[facility] [address] [place], [address] CL Normal 98-108 [facility] Comment on above: Result Comment: Canc elled via OM: Order cancelled - Patient discharged Performed By: #### L 500.2500, L100.0100 ####[facility] [address] [place], [address] CO2 Normal 21.0-32.0 [facility] Comment on above: Result Comment: Canc elled via OM: Order cancelled - Patient discharged Performed By: #### L 500.2500, L100.0100 ####[facility] [address] [place], [address] CREAT,SERUM Normal 0.70-1.20 [facility] Comment on above: Result Comment: Canc elled via OM: Order cancelled - Patient discharged Performed By: #### L 500.2500, L100.0100 ####[facility] [address] [place], [address] eGFR Normal >60 [facility] Comment on above: Result Comment: Canc elled via OM: Order cancelled - Patient discharged Performed By: #### L 500.2500, L100.0100 ####[facility] [address] [place], [address] GAP Normal 5-15 [facility] Comment on above: Result Comment: Canc elled via OM: Order cancelled - Patient discharged Performed By: #### L 500.2500, L100.0100 ####[facility] [address] [place], [address] GLU Normal 70-99 [facility] Comment on above: Result Comment: Canc elled via OM: Order cancelled - Patient discharged Performed By: #### L 500.2500, L100.0100 ####[facility] [address] [place], [address] Potassium Normal 3.3-5.1 [facility] Comment on above: Result Comment: Canc elled via OM: Order cancelled - Patient discharged Performed By: #### L 500.2500, L100.0100 ####[facility] [address] [place], [address] Basic Metabolic Profile (BMP) Normal 133-145 [facility] Comment on above: Result Comment: Canc elled via OM: Order cancelled - Patient discharged Performed By: #### L 500.2500, L100.0100 ####[facility] [address] [place], [address] CBC W/Diff, Automatedon 07-2 Absolute Neut Normal 2.0-7.7 [facility] Comment on above: Result Comment: Canc elled via OM: Order cancelled - Patient discharged Performed By: #### L 500.2500, L100.0100 ####[facility] [address] [place], [address] HCT Normal 37-47 [facility] Comment on above: Result Comment: Canc elled via OM: Order cancelled - Patient discharged Performed By: #### L 500.2500, L100.0100 ####[facility] [address] [place], [address] HGB Normal 12.0-15.0 [facility] Comment on above: Result Comment: Canc elled via OM: Order cancelled - Patient discharged Performed By: #### L 500.2500, L100.0100 ####[facility] [address] [place], [address] MCH Normal 27.0-32.0 [facility] Comment on above: Result Comment: Canc elled via OM: Order cancelled - Patient discharged Performed By: #### L 500.2500, L100.0100 ####[facility] [address] [place], [address] MCHC Normal 32-36 [facility] Comment on above: Result Comment: Canc elled via OM: Order cancelled - Patient discharged Performed By: #### L 500.2500, L100.0100 ####[facility] [address] [place], [address] MCV Normal 81-99 [facility] Comment on above: Result Comment: Canc elled via OM: Order cancelled - Patient discharged Performed By: #### L 500.2500, L100.0100 ####[facility] [address] [place], [address] NEUT% Normal 47-70 [facility] Comment on above: Result Comment: Canc elled via OM: Order cancelled - Patient discharged Performed By: #### L 500.2500, L100.0100 ####[facility] [address] [place], [address] PLT Normal 150-450 [facility] Comment on above: Result Comment: Canc elled via OM: Order cancelled - Patient discharged Performed By: #### L 500.2500, L100.0100 ####[facility] [address] [place], [address] RBC Normal 4.2-5.4 [facility] Comment on above: Result Comment: Canc elled via OM: Order cancelled - Patient discharged Performed By: #### L 500.2500, L100.0100 ####[facility] [address] [place], [address] RDW CV Normal 11.6-14.6 [facility] Comment on above: Result Comment: Canc elled via OM: Order cancelled - Patient discharged Performed By: #### L 500.2500, L100.0100 ####[facility] [address] [place], [address] RDW SD Normal 35.1-43.9 [facility] Comment on above: Result Comment: Canc elled via OM: Order cancelled - Patient discharged Performed By: #### L 500.2500, L100.0100 ####[facility] [address] [place], [address] WBC Normal 4.4-11.0 [facility] Comment on above: Result Comment: Canc elled via OM: Order cancelled - Patient discharged Performed By: #### L 500.2500, L100.0100 ####[facility] [address] [place], [address] Absolute lymphocyte countOrd ered By: Melba Hartmann on 03-25-2025 Lymphocytes Auto (Unsp spec) [#/Vol] 2.04 10*3/uL 0.83-4.51 [facility] Anion gap in Serum or Plasma Ordered By: Melba Hartmann on 03-25-2025 Anion gap [Moles/Vol] 12 mmol/L 5-15 [facility] Automated lymphocyte count a s percentage of total leukocytesOrdered By: Melba Hartmann on 03-25-2025 Lymphocytes/100 WBC Auto (Unsp spec) 26.3 % 19-41 [facility] BUN/creatinine ratioOrdered By: Melba Hartmann on 03-25-2025 Urea nitrogen/Creatinine [Mass ratio] 22.1 mg/mg High - [facility] Basic Metabolic Profile (BMP )on 03-25-2025 BUN/CRE 22.1 RATIO High - [facility] Comment on above: Performed By: #### L 500.2500, L100.0100 ####[facility] [address] [place], [address] Calcium [Mass/Vol] 10.6 mg/dL Normal 7.6-11.0 [facility] Comment on above: Performed By: #### L 500.2500, L100.0100 ####[facility] [address] [place], [address] Chloride [Moles/Vol] 101 mmol/L Normal 98-108 [facility] Comment on above: Performed By: #### L 500.2500, L100.0100 ####[facility] [address] [place], [address] CO2 [Moles/Vol] 26.0 mmol/L Normal 21.0-32.0 [facility] Comment on above: Performed By: #### L 500.2500, L100.0100 ####[facility] [address] [place], [address] Creatinine [Mass/Vol] 1.14 mg/dL Normal 0.70-1.20 [facility] Comment on above: Performed By: #### L 500.2500, L100.0100 ####[facility] [address] [place], [address] ECRCL 38.25 ml/min Low 50-250 [facility] Comment on above: Performed By: #### L 500.2500, L100.0100 ####[facility] [address] [place], [address] GAP 12 Normal 5-15 [facility] Comment on above: Performed By: #### L 500.2500, L100.0100 ####[facility] [address] [place], [address] GFR/1.73 sq M.predicted among non-blacks MDRD (S/P/Bld) [Vol rate/Area] 48 mL/min/{1.73_m2} Low >60 [facility] Comment on above: Result Comment: mL/m in/1.73m2 CKD-EPI Creatinine Equation (2020) Performed By: #### L 500.2500, L100.0100 ####[facility] [address] [place], [address] Glucose [Mass/Vol] 123 mg/dL High 70-99 [facility] Comment on above: Performed By: #### L 500.2500, L100.0100 ####[facility] [address] [place], [address] Potassium [Moles/Vol] 4.8 mmol/L Normal 3.3-5.1 [facility] Comment on above: Performed By: #### L 500.2500, L100.0100 ####[facility] [address] [place], [address] Sodium [Moles/Vol] 139 mmol/L Normal 133-145 [facility] Comment on above: Performed By: #### L 500.2500, L100.0100 ####[facility] [address] [place], [address] Urea nitrogen [Mass/Vol] 25 mg/dL High 4-19 [facility] Comment on above: Performed By: #### L 500.2500, L100.0100 ####[facility] [address] [place], [address] Basophil percentageOrdered B y: Melbanereida Hartmann on 03-25-2025 Basophils/100 WBC (Bld) 0.4 % 0-1 [facility] Bedside Glucoseon 03-25-2025 FINGERSTICK GLU 193 mg/dL High 74-106 [facility] Comment on above: Result Comment: KATARINA GARY OF PATIENT CARE PER NURSING PROTOCOL Performed By: #### L 501.080 ####[facility] [address] [place], [address] FINGERSTICK GLU 164 mg/dL High 74-106 [facility] Comment on above: Result Comment: KATARINA GEMENT OF PATIENT CARE PER NURSING PROTOCOL Performed By: #### L 501.080 ####[facility] [address] [place], [address] FINGERSTICK GLU 124 mg/dL High 74-106 [facility] Comment on above: Result Comment: KATARINA GEMENT OF PATIENT CARE PER NURSING PROTOCOL Performed By: #### L 501.080 ####[facility] [address] [place], [address] CBC W/Diff, Automatedon 07-2 6-2024 Absolute Lymph 2.04 X10 3/uL Normal 0.83-4.51 [facility] Comment on above: Performed By: #### L 500.2500, L100.0100 ####[facility] [address] [place], [address] Absolute Neut 4.8 X10 3/uL Normal 2.0-7.7 [facility] Comment on above: Performed By: #### L 500.2500, L100.0100 ####[facility] [address] [place], [address] Basophils/100 WBC (Bld) 0.4 % Normal 0-1 [facility] Comment on above: Performed By: #### L 500.2500, L100.0100 ####[facility] [address] [place], [address] Eosinophils/100 WBC (Bld) 0.8 % Normal 0-5 [facility] Comment on above: Performed By: #### L 500.2500, L100.0100 ####[facility] [address] [place], [address] Erythrocyte distribution width (RBC) [Ratio] 16.3 % High 11.6-14.6 [facility] Comment on above: Performed By: #### L 500.2500, L100.0100 ####[facility] [address] [place], [address] Hematocrit (Bld) [Volume fraction] 29.7 % Low 37-47 [facility] Comment on above: Performed By: #### L 500.2500, L100.0100 ####[facility] [address] [place], [address] Hemoglobin (Bld) [Mass/Vol] 9.0 g/dL Low 12.0-15.0 [facility] Comment on above: Performed By: #### L 500.2500, L100.0100 ####[facility] [address] [place], [address] IG% 0.800 Normal 0.0-0.9 [facility] Comment on above: Result Comment: IG% - Immature Granulocytes (promyelocytes, myelocytes andmetamyelocytes) > 1% indicates that a LEFT SHIFT is Present. Performed By: #### L 500.2500, L100.0100 ####[facility] [address] [place], [address] Lymphocytes/100 WBC (Bld) 26.3 % Normal 19-41 [facility] Comment on above: Performed By: #### L 500.2500, L100.0100 ####[facility] [address] [place], [address] MCH (RBC) [Entitic mass] 27.2 pg Normal 27.0-32.0 [facility] Comment on above: Performed By: #### L 500.2500, L100.0100 ####[facility] [address] [place], [address] MCHC (RBC) [Mass/Vol] 30.3 g/dL Low 32-36 [facility] Comment on above: Performed By: #### L 500.2500, L100.0100 ####[facility] [address] [place], [address] MCV (RBC) [Entitic vol] 89.7 fL Normal 81-99 [facility] Comment on above: Performed By: #### L 500.2500, L100.0100 ####[facility] [address] [place], [address] Monocytes/100 WBC (Bld) 10.4 % High 0-10 [facility] Comment on above: Performed By: #### L 500.2500, L100.0100 ####[facility] [address] [place], [address] Neutrophils/100 WBC (Bld) 61.3 % Normal 47-70 [facility] Comment on above: Performed By: #### L 500.2500, L100.0100 ####[facility] [address] [place], [address] Nucleated RBC (Bld) [#/Vol] 0.3 10*3/uL Normal 0-5 [facility] Comment on above: Performed By: #### L 500.2500, L100.0100 ####[facility] [address] [place], [address] Platelet mean volume (Bld) [Entitic vol] 10.8 fL Normal 6.2-12.0 [facility] Comment on above: Performed By: #### L 500.2500, L100.0100 ####[facility] [address] [place], [address] Platelets (Bld) [#/Vol] 251 10*3/uL Normal 150-450 [facility] Comment on above: Performed By: #### L 500.2500, L100.0100 ####[facility] [address] [place], [address] RBC (Bld) [#/Vol] 3.31 10*6/uL Low 4.2-5.4 [facility] Comment on above: Performed By: #### L 500.2500, L100.0100 ####[facility] [address] [place], [address] RDW SD 53.7 fl High 35.1-43.9 [facility] Comment on above: Performed By: #### L 500.2500, L100.0100 ####[facility] [address] [place], [address] WBC (Bld) [#/Vol] 7.8 10*3/uL Normal 4.4-11.0 [facility] Comment on above: Performed By: #### L 500.2500, L100.0100 ####[facility] [address] [facility] [place], [address] Carbon dioxide, total [Moles /volume] in Central venous bloodOrdered By: Melba Hartmann on 03-25-2025 CO2 [Moles/Vol] 26.0 mmol/L 21.0-32.0 [facility] Chloride assayOrdered By: Na na Mary Kate on 03-25-2025 Chloride [Moles/Vol] 101 mmol/L 98-108 [facility] Discharge Instructionon 03-01 Discharge Instruction Normal [facility] Eosinophil percentageOrdered By: Melba Hartmann on 03-25-2025 Eosinophils/100 WBC (Bld) 0.8 % 0-5 [facility] Erythrocyte distribution wid th ratioOrdered By: Melba Hartmann on 03-25-2025 Erythrocyte distribution width (RBC) [Ratio] 16.3 % High 11.6-14.6 [facility] Erythrocyte distribution wid th standard deviationOrdered By: Melba Hartmann on 03-25-2025 Erythrocyte distribution width (RBC) [Ratio] 53.7 fl High 35.1-43.9 [facility] Glomerular filtration rate ( GFR) estimation/1.73 sq m using serum, plasma, or whole bOrdered By: Melba Hartmann on 03-25-2025 GFR/1.73 sq M.predicted among non-blacks MDRD (S/P/Bld) [Vol rate/Area] 48 mL/min/{1.73_m2} Low >60 [facility] Glucose measurement at bedsi deOrdered By: Melba Hartmann on 03-25-2025 Glucose [Mass/Vol] 193 mg/dL High 74-106 [facility] Hematocrit Auto (Bld) [Volum e fraction]Ordered By: Melba Hartmann on 03-25-2025 Hematocrit (Bld) [Volume fraction] 29.7 % Low 37-47 [facility] Hemoglobin measurementOrdere d By: Melba Hartmann on 03-25-2025 Hemoglobin (Bld) [Mass/Vol] 9.0 g/dL Low 12.0-15.0 [facility] Immature granulocytes/100 WB C Auto (Bld)Ordered By: Melba Hartmann on 03-25-2025 Immature granulocytes/100 WBC (Bld) 0.800 % 0.0-0.9 [facility] MCV (mean corpuscular volume ) determinationOrdered By: Melba Hartmann on 03-25-2025 MCV (RBC) [Entitic vol] 89.7 fL 81-99 [facility] Mean corpuscular hemoglobin (MCH) determinationOrdered By: Melba Hartmann on 03-25-2025 MCH (RBC) [Entitic mass] 27.2 pg 27.0-32.0 [facility] Monocyte percentageOrdered B y: Melba Hartmann on 03-25-2025 Monocytes/100 WBC (Bld) 10.4 % High 0-10 [facility] Neutrophil percentageOrdered By: Melba Hartmann on 03-25-2025 Neutrophils/100 WBC (Bld) 61.3 % 47-70 [facility] Platelet countOrdered By: Ewelina Hartmann on 03-25-2025 Platelets (Bld) [#/Vol] 251 10*3/uL 150-450 [facility] Potassium measurement (mass/ volume)Ordered By: Melba Hartmann on 03-25-2025 Potassium (Unsp spec) [Mass/Vol] 4.8 mmol/L 3.3-5.1 [facility] RBC Auto (Bld) [#/Vol]Ordere d By: Melba Hartmann on 03-25-2025 RBC (Bld) [#/Vol] 3.31 10*6/uL Low 4.2-5.4 [facility] Serum creatinine measurement (mass/volume)Ordered By: Melba Hartmann on 03-25-2025 Creatinine [Mass/Vol] 1.14 mg/dL 0.70-1.20 [facility] Serum glucose measurement (m ass/volume)Ordered By: Melba Hartmann on 03-25-2025 Glucose [Mass/Vol] 123 mg/dL High 70-99 [facility] Serum or plasma calcium melanie urement (mass/volume)Ordered By: Melba Hartmann on 03-25-2025 Calcium [Mass/Vol] 10.6 mg/dL 7.6-11.0 [facility] Serum or plasma urea nitroge n measurement (mass/volume)Ordered By: Melba Hartmann on 03-25-2025 Urea nitrogen [Mass/Vol] 25 mg/dL High 4-19 [facility] Sodium levelOrdered By: Melba Hartmann on 03-25-2025 Sodium [Moles/Vol] 139 mmol/L 133-145 [facility] White blood cell (WBC) count Ordered By: Melba Hartmann on 03-25-2025 WBC (Bld) [#/Vol] 7.8 10*3/uL 4.4-11.0 [facility] Basic Metabolic Profile (BMP )on 03-24-2025 BUN/CRE 19.7 RATIO Normal 10-20 [facility] Comment on above: Performed By: #### L 100.0100, L500.2500 ####[facility] [address] [place], [address] Calcium [Mass/Vol] 10.5 mg/dL Normal 7.6-11.0 [facility] Comment on above: Performed By: #### L 100.0100, L500.2500 ####[facility] [address] [place], [address] Chloride [Moles/Vol] 97 mmol/L Low 98-108 [facility] Comment on above: Performed By: #### L 100.0100, L500.2500 ####[facility] [address] [place], [address] CO2 [Moles/Vol] 27.0 mmol/L Normal 21.0-32.0 [facility] Comment on above: Performed By: #### L 100.0100, L500.2500 ####[facility] [address] [place], [address] Creatinine [Mass/Vol] 1.21 mg/dL High 0.70-1.20 [facility] Comment on above: Performed By: #### L 100.0100, L500.2500 ####[facility] [address] [place], [address] ECRCL 35.44 ml/min Low 50-250 [facility] Comment on above: Performed By: #### L 100.0100, L500.2500 ####[facility] [address] [place], [address] GAP 11 Normal 5-15 [facility] Comment on above: Performed By: #### L 100.0100, L500.2500 ####[facility] [address] [place], [address] GFR/1.73 sq M.predicted among non-blacks MDRD (S/P/Bld) [Vol rate/Area] 45 mL/min/{1.73_m2} Low >60 [facility] Comment on above: Result Comment: mL/m in/1.73m2 CKD-EPI Creatinine Equation (2020) Performed By: #### L 100.0100, L500.2500 ####[facility] [address] [place], [address] Glucose [Mass/Vol] 165 mg/dL High 70-99 [facility] Comment on above: Performed By: #### L 100.0100, L500.2500 ####[facility] [address] [place], [address] Potassium [Moles/Vol] 4.8 mmol/L Normal 3.3-5.1 [facility] Comment on above: Performed By: #### L 100.0100, L500.2500 ####[facility] [address] [place], [address] Sodium [Moles/Vol] 135 mmol/L Normal 133-145 [facility] Comment on above: Performed By: #### L 100.0100, L500.2500 ####[facility] [address] [place], [address] Urea nitrogen [Mass/Vol] 24 mg/dL High 4-19 [facility] Comment on above: Performed By: #### L 100.0100, L500.2500 ####[facility] [address] [place], [address] Bedside Glucoseon 03-24-2025 FINGERSTICK GLU 294 mg/dL High 74-106 [facility] Comment on above: Result Comment: KATARINA GEMENT OF PATIENT CARE PER NURSING PROTOCOL Performed By: #### L 501.080 ####[facility] [address] [place], [address] FINGERSTICK GLU 311 mg/dL High 74-106 [facility] Comment on above: Result Comment: KATARINA GEMENT OF PATIENT CARE PER NURSING PROTOCOL Performed By: #### L 501.080 ####[facility] [address] [place], [address] FINGERSTICK GLU 132 mg/dL High 74-106 [facility] Comment on above: Result Comment: KATARINA GEMENT OF PATIENT CARE PER NURSING PROTOCOL Performed By: #### L 501.080 ####[facility] [address] [place], [address] FINGERSTICK GLU 156 mg/dL High 74-106 [facility] Comment on above: Result Comment: KATARINA GEMENT OF PATIENT CARE PER NURSING PROTOCOL Performed By: #### L 501.080 ####[facility] [address] [place], [address] CBC W/Diff, Automatedon 07-2 5-2024 Absolute Lymph 1.88 X10 3/uL Normal 0.83-4.51 [facility] Comment on above: Performed By: #### L 100.0100, L500.2500 ####[facility] [address] [place], [address] Absolute Neut 6.1 X10 3/uL Normal 2.0-7.7 [facility] [facility] Comment on above: Performed By: #### L 100.0100, L500.2500 ####[facility] [address] [place], [address] Basophils/100 WBC (Bld) 0.3 % Normal 0-1 [facility] Comment on above: Performed By: #### L 100.0100, L500.2500 ####[facility] [address] [place], [address] Eosinophils/100 WBC (Bld) 0.8 % Normal 0-5 [facility] Comment on above: Performed By: #### L 100.0100, L500.2500 ####[facility] [address] [place], [address] Erythrocyte distribution width (RBC) [Ratio] 16.4 % High 11.6-14.6 [facility] Comment on above: Performed By: #### L 100.0100, L500.2500 ####[facility] [address] [place], [address] Hematocrit (Bld) [Volume fraction] 29.7 % Low 37-47 [facility] Comment on above: Performed By: #### L 100.0100, L500.2500 ####[facility] [address] [place], [address] Hemoglobin (Bld) [Mass/Vol] 9.1 g/dL Low 12.0-15.0 [facility] Comment on above: Performed By: #### L 100.0100, L500.2500 ####[facility] [address] [place], [address] IG% 0.300 Normal 0.0-0.9 [facility] Comment on above: Result Comment: IG% - Immature Granulocytes (promyelocytes, myelocytes andmetamyelocytes) > 1% indicates that a LEFT SHIFT is Present. Performed By: #### L 100.0100, L500.2500 ####[facility] [address] [place], [address] Lymphocytes/100 WBC (Bld) 21.3 % Normal 19-41 [facility] Comment on above: Performed By: #### L 100.0100, L500.2500 ####[facility] [address] [place], [address] MCH (RBC) [Entitic mass] 26.6 pg Low 27.0-32.0 [facility] Comment on above: Performed By: #### L 100.0100, L500.2500 ####[facility] [address] [place], [address] MCHC (RBC) [Mass/Vol] 30.6 g/dL Low 32-36 [facility] Comment on above: Performed By: #### L 100.0100, L500.2500 ####[facility] [address] [place], [address] MCV (RBC) [Entitic vol] 86.8 fL Normal 81-99 [facility] Comment on above: Performed By: #### L 100.0100, L500.2500 ####[facility] [address] [place], [address] Monocytes/100 WBC (Bld) 8.5 % Normal 0-10 [facility] Comment on above: Performed By: #### L 100.0100, L500.2500 ####[facility] [address] [place], [address] Neutrophils/100 WBC (Bld) 68.8 % Normal 47-70 [facility] Comment on above: Performed By: #### L 100.0100, L500.2500 ####[facility] [address] [place], [address] Nucleated RBC (Bld) [#/Vol] 0 10*3/uL Normal 0-5 [facility] Comment on above: Performed By: #### L 100.0100, L500.2500 ####[facility] [address] [place], [address] Platelet mean volume (Bld) [Entitic vol] 10.7 fL Normal 6.2-12.0 [facility] Comment on above: Performed By: #### L 100.0100, L500.2500 ####[facility] [address] [place], [address] Platelets (Bld) [#/Vol] 288 10*3/uL Normal 150-450 [facility] Comment on above: Performed By: #### L 100.0100, L500.2500 ####[facility] [address] [place], [address] RBC (Bld) [#/Vol] 3.42 10*6/uL Low 4.2-5.4 [facility] Comment on above: Performed By: #### L 100.0100, L500.2500 ####[facility] [address] [place], [address] RDW SD 52.3 fl High 35.1-43.9 [facility] Comment on above: Performed By: #### L 100.0100, L500.2500 ####[facility] [address] [place], [address] WBC (Bld) [#/Vol] 8.8 10*3/uL Normal 4.4-11.0 [facility] Comment on above: Performed By: #### L 100.0100, L500.2500 ####[facility] [address] [place], [address] Urine Cultureon 03-24-2025 URC Normal [facility] Comment on above: Performed By: #### M 100.2200 ####[facility] [address] [place], [address] Basic Metabolic Profile (BMP )on 03-23-2025 BUN/CRE 15.2 RATIO Normal 10-20 [facility] Comment on above: Performed By: #### L 500.2500, L100.0100 ####[facility] [address] [place], [address] Calcium [Mass/Vol] 10.2 mg/dL Normal 7.6-11.0 [facility] Comment on above: Performed By: #### L 500.2500, L100.0100 ####[facility] [address] [place], [address] Chloride [Moles/Vol] 98 mmol/L Normal 98-108 [facility] Comment on above: Performed By: #### L 500.2500, L100.0100 ####[facility] [address] [place], [address] CO2 [Moles/Vol] 26.0 mmol/L Normal 21.0-32.0 [facility] Comment on above: Performed By: #### L 500.2500, L100.0100 ####[facility] [address] [place], [address] Creatinine [Mass/Vol] 1.25 mg/dL High 0.70-1.20 [facility] Comment on above: Performed By: #### L 500.2500, L100.0100 ####[facility] [address] [place], [address] ECRCL 33.86 ml/min Low 50-250 [facility] Comment on above: Performed By: #### L 500.2500, L100.0100 ####[facility] [address] [place], [address] GAP 8 Normal 5-15 [facility] Comment on above: Performed By: #### L 500.2500, L100.0100 ####[facility] [address] [place], [address] GFR/1.73 sq M.predicted among non-blacks MDRD (S/P/Bld) [Vol rate/Area] 43 mL/min/{1.73_m2} Low >60 [facility] Comment on above: Result Comment: mL/m in/1.73m2 CKD-EPI Creatinine Equation (2020) Performed By: #### L 500.2500, L100.0100 ####[facility] [address] [place], [address] Glucose [Mass/Vol] 198 mg/dL High 70-99 [facility] Comment on above: Performed By: #### L 500.2500, L100.0100 ####[facility] [address] [place], [address] Potassium [Moles/Vol] 5.8 mmol/L High 3.3-5.1 [facility] Comment on above: Performed By: #### L 500.2500, L100.0100 ####[facility] [address] [place], [address] Sodium [Moles/Vol] 132 mmol/L Low 133-145 [facility] Comment on above: Performed By: #### L 500.2500, L100.0100 ####[facility] [address] [place], [address] Urea nitrogen [Mass/Vol] 19 mg/dL Normal 4-19 [facility] Comment on above: Performed By: #### L 500.2500, L100.0100 ####[facility] [address] [place], [address] Bedside Glucoseon - FINGERSTICK GLU 257 mg/dL High 74-106 [facility] Comment on above: Result Comment: KATARINA GEMENT OF PATIENT CARE PER NURSING PROTOCOL Performed By: #### L 501.080 ####[facility] [address] [place], [address] FINGERSTICK GLU 251 mg/dL High 74-106 [facility] Comment on above: Result Comment: KATARINA GEMENT OF PATIENT CARE PER NURSING PROTOCOL Performed By: #### L 501.080 ####[facility] [address] [place], [address] FINGERSTICK GLU 232 mg/dL High 74-106 [facility] Comment on above: Result Comment: KATARINA GEMENT OF PATIENT CARE PER NURSING PROTOCOL Performed By: #### L 501.080 ####[facility] [address] [place], [address] FINGERSTICK GLU 228 mg/dL High -106 [facility] Comment on above: Result Comment: KATARINA GEMENT OF PATIENT CARE PER NURSING PROTOCOL Performed By: #### L 501.080 ####[facility] [address] [place], [address] CBC W/Diff, Automatedon 07-2 Absolute Lymph 1.21 X10 3/uL Normal 0.83-4.51 [facility] Comment on above: Performed By: #### L 500.2500, L100.0100 ####[facility] [address] [place], [address] Absolute Neut 5.6 X10 3/uL Normal 2.0-7.7 [facility] Comment on above: Performed By: #### L 500.2500, L100.0100 ####[facility] [address] [place], [address] Basophils/100 WBC (Bld) 0.1 % Normal 0-1 [facility] Comment on above: Performed By: #### L 500.2500, L100.0100 ####[facility] [address] [place], [address] Eosinophils/100 WBC (Bld) 0.0 % Normal 0-5 [facility] Comment on above: Performed By: #### L 500.2500, L100.0100 ####[facility] [address] [place], [address] Erythrocyte distribution width (RBC) [Ratio] 16.0 % High 11.6-14.6 [facility] Comment on above: Performed By: #### L 500.2500, L100.0100 ####[facility] [address] [place], [address] Hematocrit (Bld) [Volume fraction] 28.0 % Low 37-47 [facility] Comment on above: Performed By: #### L 500.2500, L100.0100 ####[facility] [address] [place], [address] Hemoglobin (Bld) [Mass/Vol] 8.8 g/dL Low 12.0-15.0 [facility] Comment on above: Performed By: #### L 500.2500, L100.0100 ####[facility] [address] [place], [address] IG% 0.500 Normal 0.0-0.9 [facility] Comment on above: Result Comment: IG% - Immature Granulocytes (promyelocytes, myelocytes andmetamyelocytes) > 1% indicates that a LEFT SHIFT is Present. Performed By: #### L 500.2500, L100.0100 ####[facility] [address] [place], [address] Lymphocytes/100 WBC (Bld) 16.5 % Low 19-41 [facility] Comment on above: Performed By: #### L 500.2500, L100.0100 ####[facility] [address] [place], [address] MCH (RBC) [Entitic mass] 27.0 pg Normal 27.0-32.0 [facility] Comment on above: Performed By: #### L 500.2500, L100.0100 ####[facility] [address] [place], [address] MCHC (RBC) [Mass/Vol] 31.4 g/dL Low 32-36 [facility] Comment on above: Performed By: #### L 500.2500, L100.0100 ####[facility] [address] [place], [address] MCV (RBC) [Entitic vol] 85.9 fL Normal 81-99 [facility] Comment on above: Performed By: #### L 500.2500, L100.0100 ####[facility] [address] [place], [address] Monocytes/100 WBC (Bld) 6.8 % Normal 0-10 [facility] Comment on above: Performed By: #### L 500.2500, L100.0100 ####[facility] [address] [place], [address] Neutrophils/100 WBC (Bld) 76.1 % High 47-70 [facility] Comment on above: Performed By: #### L 500.2500, L100.0100 ####[facility] [address] [place], [address] Nucleated RBC (Bld) [#/Vol] 0 10*3/uL Normal 0-5 [facility] Comment on above: Performed By: #### L 500.2500, L100.0100 ####[facility] [address] [place], [address] Platelet mean volume (Bld) [Entitic vol] 10.7 fL Normal 6.2-12.0 [facility] Comment on above: Performed By: #### L 500.2500, L100.0100 ####[facility] [address] [place], [address] Platelets (Bld) [#/Vol] 274 10*3/uL Normal 150-450 [facility] Comment on above: Performed By: #### L 500.2500, L100.0100 ####[facility] [address] [place], [address] RBC (Bld) [#/Vol] 3.26 10*6/uL Low 4.2-5.4 [facility] Comment on above: Performed By: #### L 500.2500, L100.0100 ####[facility] [address] [place], [address] RDW SD 50.8 fl High 35.1-43.9 [facility] Comment on above: Performed By: #### L 500.2500, L100.0100 ####[facility] [address] [place], [address] WBC (Bld) [#/Vol] 7.4 10*3/uL Normal 4.4-11.0 [facility] Comment on above: Performed By: #### L 500.2500, L100.0100 ####[facility] [address] [place], [address] Potassiumon 03-23-2025 Potassium [Moles/Vol] 5.2 mmol/L High 3.3-5.1 [facility] Comment on above: Performed By: #### L 501.5600 ####[facility] [address] [place], [address] Bedside Glucoseon 03-22-2025 FINGERSTICK GLU 243 mg/dL High 74-106 [facility] Comment on above: Result Comment: KATARINA GEMENT OF PATIENT CARE PER NURSING PROTOCOL Performed By: #### L 501.080 ####[facility] [address] [place], [address] FINGERSTICK GLU 232 mg/dL High 74-106 [facility] Comment on above: Result Comment: KATARINA GEMENT OF PATIENT CARE PER NURSING PROTOCOL Performed By: #### L 501.080 ####[facility] [address] [place], [address] FINGERSTICK GLU 131 mg/dL High -106 [facility] Comment on above: Result Comment: KATARINA GEMENT OF PATIENT CARE PER NURSING PROTOCOL Performed By: #### L 501.080 ####[facility] [address] [place], [address] FINGERSTICK GLU 139 mg/dL High -106 [facility] Comment on above: Result Comment: KATARINA GEMENT OF PATIENT CARE PER NURSING PROTOCOL Performed By: #### L 501.080 ####[facility] [address] [place], [address] Bilirubin, totalOrdered By: Abigail Foster on 03-22-2025 Bilirubin [Mass/Vol] 0.21 mg/dL 0.00-1.30 [facility] Blood manual differential co mment interpretation (narrative result)Ordered By: Abigail Foster on 03-22-2025 Manual differential comment Daniel (Bld) [Interp] SCANNED [facility] CBC W/Diff, Automatedon 03-01 SMEAR COMMENT SCANNED Normal [facility] Comment on above: Performed By: #### L 100.0100, L500.4050 ####[facility] [address] [place], [address] Comprehensive Metabolic Prof ilon 03-22-2025 Albumin [Mass/Vol] 3.0 g/dL Low 3.4-4.8 [facility] Comment on above: Performed By: #### L 100.0100, L500.4050 ####[facility] [address] [place], [address] Albumin/Globulin [Mass ratio] 1.0 {ratio} Normal 0.9-2.4 [facility] Comment on above: Performed By: #### L 100.0100, L500.4050 ####[facility] [address] [place], [address] ALK PHOS 68 U/L Normal 35-104 [facility] Comment on above: Performed By: #### L 100.0100, L500.4050 ####[facility] [address] [place], [address] ALT [Catalytic activity/Vol] 8 U/L Normal <=34 [facility] Comment on above: Performed By: #### L 100.0100, L500.4050 ####[facility] [address] [place], [address] AST [Catalytic activity/Vol] 19 U/L Normal <=31 [facility] Comment on above: Performed By: #### L 100.0100, L500.4050 ####[facility] [address] [place], [address] Bilirubin [Mass/Vol] 0.21 mg/dL Normal 0.00-1.30 [facility] Comment on above: Performed By: #### L 100.0100, L500.4050 ####[facility] [address] [place], [address] BUN/CRE 18.4 RATIO Normal 10-20 [facility] Comment on above: Performed By: #### L 100.0100, L500.4050 ####[facility] [address] [place], [address] Calcium [Mass/Vol] 10.0 mg/dL Normal 7.6-11.0 [facility] Comment on above: Performed By: #### L 100.0100, L500.4050 ####[facility] [address] [place], [address] Chloride [Moles/Vol] 100 mmol/L Normal 98-108 [facility] Comment on above: Performed By: #### L 100.0100, L500.4050 ####[facility] [address] [place], [address] CO2 [Moles/Vol] 25.4 mmol/L Normal 21.0-32.0 [facility] Comment on above: Performed By: #### L 100.0100, L500.4050 ####[facility] [address] [place], [address] Creatinine [Mass/Vol] 0.93 mg/dL Normal 0.70-1.20 [facility] Comment on above: Performed By: #### L 100.0100, L500.4050 ####[facility] [address] [place], [address] ECRCL 44.58 ml/min Low 50-250 [facility] Comment on above: Performed By: #### L 100.0100, L500.4050 ####[facility] [address] [place], [address] GAP 10 Normal 5-15 [facility] Comment on above: Performed By: #### L 100.0100, L500.4050 ####[facility] [address] [place], [address] GFR/1.73 sq M.predicted among non-blacks MDRD (S/P/Bld) [Vol rate/Area] 62 mL/min/{1.73_m2} Normal >60 [facility] Comment on above: Result Comment: mL/m in/1.73m2 CKD-EPI Creatinine Equation (2020) Performed By: #### L 100.0100, L500.4050 ####[facility] [address] [place], [address] Globulin (S) [Mass/Vol] 3.1 g/dL Normal 2.2-4.2 [facility] Comment on above: Performed By: #### L 100.0100, L500.4050 ####[facility] [address] [place], [address] Glucose [Mass/Vol] 144 mg/dL High 70-99 [facility] Comment on above: Performed By: #### L 100.0100, L500.4050 ####[facility] [address] [place], [address] Potassium [Moles/Vol] 4.2 mmol/L Normal 3.3-5.1 [facility] Comment on above: Performed By: #### L 100.0100, L500.4050 ####[facility] [address] [place], [address] Sodium [Moles/Vol] 135 mmol/L Normal 133-145 [facility] Comment on above: Performed By: #### L 100.0100, L500.4050 ####[facility] [address] [place], [address] T PROT 6.1 g/dL Normal 5.9-8.4 [facility] Comment on above: Performed By: #### L 100.0100, L500.4050 ####[facility] [address] [place], [address] Urea nitrogen [Mass/Vol] 17 mg/dL Normal 4-19 [facility] Comment on above: Performed By: #### L 100.0100, L500.4050 ####[facility] [address] [place], [address] No Panel InformationOrdered By: Abigail Foster on 03-22-2025 19 U/L <32 [facility] Serum globulin measurementOr dered By: Abigail Foster on 03-22-2025 Globulin (S) [Mass/Vol] 3.1 g/dL 2.2-4.2 [facility] Serum or plasma alanine kelley otransferase (ALT) measurementOrdered By: Abigail Kristin on 03-22-2025 ALT [Catalytic activity/Vol] 8 U/L <35 [facility] Serum or plasma albumin melanie urement (mass/volume)Ordered By: Abigail Kristin on 03-22-2025 Albumin [Mass/Vol] 3.0 g/dL Low 3.4-4.8 [facility] Serum or plasma albumin/glob ulin mass ratioOrdered By: Abigail Kristin on 03-22-2025 Albumin/Globulin [Mass ratio] 1.0 {ratio} 0.9-2.4 [facility] Serum or plasma alkaline lissa sphatase measurementOrdered By: Abigail Foster on 03-22-2025 ALP [Catalytic activity/Vol] 68 U/L 35-104 [facility] Total proteinOrdered By: Aut [facility] Kristin on 03-22-2025 Protein [Mass/Vol] 6.1 g/dL 5.9-8.4 [facility] Abdomen/Pelvis W IV Cont ONL Yon 03-21-2025 Abdomen/Pelvis W IV Cont ONLY Normal [facility] Absolute lymphocyte countOrd ered By: Noé Currie on 03-21-2025 Lymphocytes Auto (Unsp spec) [#/Vol] 2.26 10*3/uL 0.83-4.51 [facility] Anion gap in Serum or Plasma Ordered By: Noé Crurie on 03-21-2025 Anion gap [Moles/Vol] 13 mmol/L 5-15 [facility] Automated lymphocyte count a s percentage of total leukocytesOrdered By: Noé Currie on 03-21-2025 Lymphocytes/100 WBC Auto (Unsp spec) 27.1 % 19-41 [facility] BUN/creatinine ratioOrdered By: Noé Currie on 03-21-2025 Urea nitrogen/Creatinine [Mass ratio] 18.2 mg/mg 10-20 [facility] Basic Metabolic Profile (BMP )on 03-21-2025 BUN/CRE 18.2 RATIO Normal 10-20 [facility] Comment on above: Performed By: #### L 500.2500, L100.0100 ####[facility] [address] [place], [address] Calcium [Mass/Vol] 10.5 mg/dL Normal 7.6-11.0 [facility] Comment on above: Performed By: #### L 500.2500, L100.0100 ####[facility] [address] [place], [address] Chloride [Moles/Vol] 98 mmol/L Normal 98-108 [facility] Comment on above: Performed By: #### L 500.2500, L100.0100 ####[facility] [address] [place], [address] CO2 [Moles/Vol] 26.4 mmol/L Normal 21.0-32.0 [facility] Comment on above: Performed By: #### L 500.2500, L100.0100 ####[facility] [address] [place], [address] Creatinine [Mass/Vol] 1.00 mg/dL Normal 0.70-1.20 [facility] Comment on above: Performed By: #### L 500.2500, L100.0100 ####[facility] [address] [place], [address] ECRCL 41.62 ml/min Low 50-250 [facility] Comment on above: Performed By: #### L 500.2500, L100.0100 ####[facility] [address] [place], [address] GAP 13 Normal 5-15 [facility] Comment on above: Performed By: #### L 500.2500, L100.0100 ####[facility] [address] [place], [address] GFR/1.73 sq M.predicted among non-blacks MDRD (S/P/Bld) [Vol rate/Area] 57 mL/min/{1.73_m2} Low >60 [facility] Comment on above: Result Comment: mL/m in/1.73m2 CKD-EPI Creatinine Equation (2020) Performed By: #### L 500.2500, L100.0100 ####[facility] [address] [place], [address] Glucose [Mass/Vol] 128 mg/dL High 70-99 [facility] Comment on above: Performed By: #### L 500.2500, L100.0100 ####[facility] [address] [place], [address] Potassium [Moles/Vol] 4.4 mmol/L Normal 3.3-5.1 [facility] Comment on above: Result Comment: Hemo lysis present, Results??could be affected.?? Performed By: #### L 500.2500, L100.0100 ####[facility] [address] [place], [address] Sodium [Moles/Vol] 137 mmol/L Normal 133-145 [facility] Comment on above: Performed By: #### L 500.2500, L100.0100 ####[facility] [address] [place], [address] Urea nitrogen [Mass/Vol] 18 mg/dL Normal 4-19 [facility] Comment on above: Performed By: #### L 500.2500, L100.0100 ####[facility] [address] [place], [address] Basophil percentageOrdered B y: Noé Currie on 03-21-2025 Basophils/100 WBC (Bld) 0.7 % 0-1 [facility] Bedside Glucoseon 03-21-2025 FINGERSTICK GLU 114 mg/dL High 74-106 [facility] Comment on above: Result Comment: KATARINA GARY OF PATIENT CARE PER NURSING PROTOCOL Performed By: #### L 501.080 ####[facility] [address] [place], [address] Bilirubin Test strip Ql (U)O rdered By: Ethan Suarez on 03-21-2025 Bilirubin Ql (U) Negative Negative [facility] CBC W/Diff, Automatedon 03-01 Absolute Lymph 2.26 X10 3/uL Normal 0.83-4.51 [facility] Comment on above: Performed By: #### L 500.2500, L100.0100 ####[facility] [address] [place], [address] Absolute Neut 5.2 X10 3/uL Normal 2.0-7.7 [facility] Comment on above: Performed By: #### L 500.2500, L100.0100 ####[facility] [address] [place], [address] Basophils/100 WBC (Bld) 0.7 % Normal 0-1 [facility] [facility] Comment on above: Performed By: #### L 500.2500, L100.0100 ####[facility] [address] [place], [address] Eosinophils/100 WBC (Bld) 0.8 % Normal 0-5 [facility] Comment on above: Performed By: #### L 500.2500, L100.0100 ####[facility] [address] [place], [address] Erythrocyte distribution width (RBC) [Ratio] 16.4 % High 11.6-14.6 [facility] Comment on above: Performed By: #### L 500.2500, L100.0100 ####[facility] [address] [place], [address] Hematocrit (Bld) [Volume fraction] 31.3 % Low 37-47 [facility] Comment on above: Performed By: #### L 500.2500, L100.0100 ####[facility] [address] [place], [address] Hemoglobin (Bld) [Mass/Vol] 9.7 g/dL Low 12.0-15.0 [facility] Comment on above: Performed By: #### L 500.2500, L100.0100 ####[facility] [address] [place], [address] IG% 0.500 Normal 0.0-0.9 [facility] Comment on above: Result Comment: IG% - Immature Granulocytes (promyelocytes, myelocytes andmetamyelocytes) > 1% indicates that a LEFT SHIFT is Present. Performed By: #### L 500.2500, L100.0100 ####[facility] [address] [place], [address] Lymphocytes/100 WBC (Bld) 27.1 % Normal 19-41 [facility] Comment on above: Performed By: #### L 500.2500, L100.0100 ####[facility] [address] [place], [address] MCH (RBC) [Entitic mass] 27.0 pg Normal 27.0-32.0 [facility] Comment on above: Performed By: #### L 500.2500, L100.0100 ####[facility] [address] [place], [address] MCHC (RBC) [Mass/Vol] 31.0 g/dL Low 32-36 [facility] Comment on above: Performed By: #### L 500.2500, L100.0100 ####[facility] [address] [place], [address] MCV (RBC) [Entitic vol] 87.2 fL Normal 81-99 [facility] Comment on above: Performed By: #### L 500.2500, L100.0100 ####[facility] [address] [place], [address] Monocytes/100 WBC (Bld) 8.6 % Normal 0-10 [facility] Comment on above: Performed By: #### L 500.2500, L100.0100 ####[facility] [address] [place], [address] Neutrophils/100 WBC (Bld) 62.3 % Normal 47-70 [facility] Comment on above: Performed By: #### L 500.2500, L100.0100 ####[facility] [address] [place], [address] Nucleated RBC (Bld) [#/Vol] 0 10*3/uL Normal 0-5 [facility] Comment on above: Performed By: #### L 500.2500, L100.0100 ####[facility] [address] [place], [address] Platelet mean volume (Bld) [Entitic vol] 11.1 fL Normal 6.2-12.0 [facility] Comment on above: Performed By: #### L 500.2500, L100.0100 ####[facility] [address] [place], [address] Platelets (Bld) [#/Vol] 304 10*3/uL Normal 150-450 [facility] Comment on above: Performed By: #### L 500.2500, L100.0100 ####[facility] [address] [place], [address] RBC (Bld) [#/Vol] 3.59 10*6/uL Low 4.2-5.4 [facility] Comment on above: Performed By: #### L 500.2500, L100.0100 ####[facility] [address] [place], [address] RDW SD 52.5 fl High 35.1-43.9 [facility] Comment on above: Performed By: #### L 500.2500, L100.0100 ####[facility] [address] [place], [address] WBC (Bld) [#/Vol] 8.4 10*3/uL Normal 4.4-11.0 [facility] Comment on above: Performed By: #### L 500.2500, L100.0100 ####[facility] [address] [place], [address] Carbon dioxide, total [Moles /volume] in Central venous bloodOrdered By: Noé Currie on 03-21-2025 CO2 [Moles/Vol] 26.4 mmol/L 21.0-32.0 [facility] Chloride assayOrdered By: Natividad Currie on 03-21-2025 Chloride [Moles/Vol] 98 mmol/L 98-108 [facility] Emergency Department Summary on 03-21-2025 Emergency Department Summary Normal [facility] Eosinophil percentageOrdered By: Noé Currie on 03-21-2025 Eosinophils/100 WBC (Bld) 0.8 % 0-5 [facility] Erythrocyte distribution wid th ratioOrdered By: Noé Currie on 03-21-2025 Erythrocyte distribution width (RBC) [Ratio] 16.4 % High 11.6-14.6 [facility] Erythrocyte distribution wid th standard deviationOrdered By: Noé Currie on 03-21-2025 Erythrocyte distribution width (RBC) [Ratio] 52.5 fl High 35.1-43.9 [facility] Glomerular filtration rate ( GFR) estimation/1.73 sq m using serum, plasma, or whole bOrdered By: Noé Currie on 03-21-2025 GFR/1.73 sq M.predicted among non-blacks MDRD (S/P/Bld) [Vol rate/Area] 57 mL/min/{1.73_m2} Low >60 [facility] Glucose measurement at bedsi deOrdered By: Noé Currie on 03-21-2025 Glucose [Mass/Vol] 114 mg/dL High 74-106 [facility] H AND P Exam - Hospital[place] 03-21-2025 H&P Exam - Hospitalist Normal [place] Hematocrit Auto (Bld) [Volum e fraction]Ordered By: Noé Currie on 03-21-2025 Hematocrit (Bld) [Volume fraction] 31.3 % Low 37-47 [facility] Hemoglobin measurementOrdere d By: Noé Currie on 03-21-2025 Hemoglobin (Bld) [Mass/Vol] 9.7 g/dL Low 12.0-15.0 [facility] Immature granulocytes/100 WB C Auto (Bld)Ordered By: Noé Currie on 03-21-2025 Immature granulocytes/100 WBC (Bld) 0.500 % 0.0-0.9 [facility] Ketones Test strip Ql (U)Ord ered By: Ethan Suarez on 03-21-2025 Ketones Ql (U) Negative Negative [facility] MCV (mean corpuscular volume ) determinationOrdered By: Noé Currie on 03-21-2025 MCV (RBC) [Entitic vol] 87.2 fL 81-99 [facility] Mean corpuscular hemoglobin (MCH) determinationOrdered By: Noé Currie on 03-21-2025 MCH (RBC) [Entitic mass] 27.0 pg 27.0-32.0 [facility] Monocyte percentageOrdered B y: Noé Currie on 03-21-2025 Monocytes/100 WBC (Bld) 8.6 % 0-10 [facility] Mucus LM Ql (Urine sed)Order ed By: Ethan Suarez on 03-21-2025 Mucus Ql (Urine sed) 0 SEEN /hpf [facility] Neutrophil percentageOrdered By: Noé Currie on 03-21-2025 Neutrophils/100 WBC (Bld) 62.3 % 47-70 [facility] Nitrite Test strip Ql (U)Ord ered By: Ethan Suarez on 03-21-2025 Nitrite Ql (U) Negative Negative [facility] Platelet countOrdered By: Natividad Currie on 03-21-2025 Platelets (Bld) [#/Vol] 304 10*3/uL 150-450 [facility] Potassium measurement (mass/ volume)Ordered By: Noé Currie on 03-21-2025 Potassium (Unsp spec) [Mass/Vol] 4.4 mmol/L 3.3-5.1 [facility] Protein Test strip Ql (U)Ord ered By: Ethan Suarez on 03-21-2025 Protein Ql (U) 30 mg/dl High Negative [facility] RBC Auto (Bld) [#/Vol]Ordere d By: Noé Currie on 03-21-2025 RBC (Bld) [#/Vol] 3.59 10*6/uL Low 4.2-5.4 [facility] Serum creatinine measurement (mass/volume)Ordered By: Noé Currie on 03-21-2025 Creatinine [Mass/Vol] 1.00 mg/dL 0.70-1.20 [facility] Serum glucose measurement (m ass/volume)Ordered By: Noé Currie on 03-21-2025 Glucose [Mass/Vol] 128 mg/dL High 70-99 [facility] Serum or plasma calcium melanie urement (mass/volume)Ordered By: Noé Currie on 03-21-2025 Calcium [Mass/Vol] 10.5 mg/dL 7.6-11.0 [facility] Serum or plasma urea nitroge n measurement (mass/volume)Ordered By: Noé Currie on 03-21-2025 Urea nitrogen [Mass/Vol] 18 mg/dL 4-19 [facility] Sodium levelOrdered By: Savage Currie on 03-21-2025 Sodium [Moles/Vol] 137 mmol/L 133-145 [facility] Spine Lumbar without Contras ton 03-21-2025 Spine Lumbar without Contrast Normal [facility] Squamous epithelial cells de tection in urine sediment by light microscopyOrdered By: Ethan Suarez on 03-21-2025 Epithelial cells.squamous LM Ql (Urine sed) 0-5 SEEN /hpf 5-10 [facility] Urinalysis, Completeon 03-21 BACTERIA 1+ /hpf Normal None Seen [facility] Comment on above: Order Comment: COLLE CTOR TO SPECIFY Performed By: #### L 400.0001 ####[facility] [address] [place], [address] RBC 0-5 SEEN Normal 0-5 [facility] Comment on above: Order Comment: MARSHALL CTOR TO SPECIFY Performed By: #### L 400.0001 ####[facility] [address] [place], [address] YEAST 1+ /hpf Normal None Seen [facility] Comment on above: Order Comment: MARSHALL CTOR TO SPECIFY Performed By: #### L 400.0001 ####[facility] [address] [place], [address] EPI,SQUAMOUS 0-5 SEEN Normal 5-10 [facility] Comment on above: Order Comment: MARSHALL CTOR TO SPECIFY Performed By: #### L 400.0001 ####[facility] [address] [place], [address] WBC >100 SEEN Normal 0-5 [facility] Comment on above: Order Comment: MARSHALL CTOR TO SPECIFY Performed By: #### L 400.0001 ####[facility] [address] [place], [address] Mucus Ql (Urine sed) 0 SEEN Normal [facility] Comment on above: Order Comment: MARSHALL CTOR TO SPECIFY Performed By: #### L 400.0001 ####[facility] [address] [place], [address] Urine clarityOrdered By: Robb Suarez on 03-21-2025 Clarity (U) Sl. Cloudy Clear [facility] Urine color determinationOrd ered By: Ethan Suarez on 03-21-2025 Color (U) Yellow Yellow [facility] Urine cultureOrdered By: Robb Suarez on 03-21-2025 Bacteria identified Cx Nom (U) Staphylococcus epidermidis Abnormal [facility] Urine glucose detectionOrder ed By: Ethan Suarez on 03-21-2025 Glucose Ql (U) 1000 mg/dl High Normal [facility] Urine leukocyte esterase det ection by dipstickOrdered By: Ethan Suarez on 03-21-2025 Leukocyte esterase Test strip Ql (U) 500 /ul High Negative [facility] Urine pHOrdered By: Ethan Suarez on 03-21-2025 pH (U) 7.0 [pH] 5.0 - 8.0 [facility] Urine sediment bacteria coun t by microscopy (number/high power field)Ordered By: Ethan Suarez on 03-21-2025 Bacteria LM.HPF (Urine sed) [#/Area] 1 /[HPF] None Seen [facility] Urine sediment yeast count b y microscopy (number/high powered field)Ordered By: Ethan Suarez on 03-21-2025 Yeast LM.HPF (Urine sed) [#/Area] 1 /[HPF] None Seen [facility] Urine specific gravity measu rementOrdered By: Ethan Suarez on 03-21-2025 Specific gravity (U) [Rel density] 1.010 1.002-1.030 [facility] Urine urobilinogen measureme ntOrdered By: Ethan Suarez on 03-21-2025 Urobilinogen Ql (U) Normal mg/dl Normal [facility] White blood cell (WBC) count Ordered By: Noé Currie on 03-21-2025 WBC (Bld) [#/Vol] 8.4 10*3/uL 4.4-11.0 [facility] White blood cell countOrdere d By: Ethan Suarez on 03-21-2025 White blood cell count >100 SEEN /hpf 0-5 [facility] Culture, Blood (WB)on 2024 CUB Blood cultures x2, from two different sites No growth in 5 days. Normal [facility] Comment on above: Performed By: #### L 500.4050, L300.3900, L300.4310, L100.0100, L503.6005, M200.1000 ####[facility] [address] [place], [place], [id number] Cardiovascular stress test r eportOrdered By: Se Good on 03-07-2025 Study report [facility] Work Phone: Stress Reporton 03-07-2025 Stress Report Normal [facility] Urine Cultureon 03-06-2025 URC Normal [facility] Comment on above: Performed By: #### L 400.0001, M100.2200 ####[facility] [address] [place], [address] 12 Lead EKGon 03-04-2025 12 Lead EKG Normal [facility] Abdomen/Pelvis W IV Cont ONL Yon 03-04-2025 Abdomen/Pelvis W IV Cont ONLY Normal [facility] Absolute lymphocyte countOrd ered By: Jeevan Yoder on 03-04-2025 Lymphocytes Auto (Unsp spec) [#/Vol] 1.75 10*3/uL 0.83-4.51 [facility] Activated partial thrombopla stin time (aPTT) in platelet poor plasma by coagulation aOrdered By: Jeevan Yoder on 03-04-2025 aPTT Coag (PPP) [Time] 25.2 s 24.1-36.2 [place] Amorphous sediment detection in urine sediment by light microscopyOrdered By: Jeevan Yoder on 03-04-2025 Amorphous sediment LM Ql (Urine sed) 3+ [facility] Anion gap in Serum or Plasma Ordered By: Jeevan Yoder on 03-04-2025 Anion gap [Moles/Vol] 11 mmol/L 5-15 [facility] Automated lymphocyte count a s percentage of total leukocytesOrdered By: Jeevan Yoder on 03-04-2025 Lymphocytes/100 WBC Auto (Unsp spec) 24.2 % 19-41 [facility] BUN/creatinine ratioOrdered By: Jeevan Yoder on 03-04-2025 Urea nitrogen/Creatinine [Mass ratio] 18.1 mg/mg 10-20 [facility] Basophil percentageOrdered B y: Jeevan Yoder on 03-04-2025 Basophils/100 WBC (Bld) 0.4 % 0-1 [facility] Bilirubin Test strip Ql (U)O rdered By: Jeevan Yoder on 03-04-2025 Bilirubin Ql (U) Negative Negative [facility] Bilirubin, totalOrdered By: Jeevan Yoder on 03-04-2025 Bilirubin [Mass/Vol] 0.25 mg/dL 0.00-1.30 [facility] Blood cultureOrdered By: Maeve Yoder on 03-04-2025 Bacteria identified Cx Nom (Bld) No growth in 5 days. [facility] Bacteria identified Cx Nom (Bld) No growth in 5 days. [facility] CBC W/Diff, Automatedon 07-0 Absolute Lymph 1.75 X10 3/uL Normal 0.83-4.51 [facility] Comment on above: Performed By: #### L 500.4050, L300.3900, L300.4310, L100.0100, L503.6005, M200.1000 ####[facility] [address] [place], [address] Absolute Neut 4.8 X10 3/uL Normal 2.0-7.7 [facility] Comment on above: Performed By: #### L 500.4050, L300.3900, L300.4310, L100.0100, L503.6005, M200.1000 ####[facility] [address] [place], [address] Basophils/100 WBC (Bld) 0.4 % Normal 0-1 [facility] Comment on above: Performed By: #### L 500.4050, L300.3900, L300.4310, L100.0100, L503.6005, M200.1000 ####[facility] [address] [place], [address] Eosinophils/100 WBC (Bld) 1.7 % Normal 0-5 [facility] Comment on above: Performed By: #### L 500.4050, L300.3900, L300.4310, L100.0100, L503.6005, M200.1000 ####[facility] [address] [place], [address] Erythrocyte distribution width (RBC) [Ratio] 16.2 % High 11.6-14.6 [facility] Comment on above: Performed By: #### L 500.4050, L300.3900, L300.4310, L100.0100, L503.6005, M200.1000 ####[facility] [address] [place], [address] Hematocrit (Bld) [Volume fraction] 33.5 % Low 37-47 [facility] Comment on above: Performed By: #### L 500.4050, L300.3900, L300.4310, L100.0100, L503.6005, M200.1000 ####[facility] [address] [place], [address] Hemoglobin (Bld) [Mass/Vol] 10.1 g/dL Low 12.0-15.0 [facility] Comment on above: Performed By: #### L 500.4050, L300.3900, L300.4310, L100.0100, L503.6005, M200.1000 ####[facility] [address] [place], [address] IG% 0.700 Normal 0.0-0.9 [facility] Comment on above: Result Comment: IG% - Immature Granulocytes (promyelocytes, myelocytes andmetamyelocytes) > 1% indicates that a LEFT SHIFT is Present. Performed By: #### L 500.4050, L300.3900, L300.4310, L100.0100, L503.6005, M200.1000 ####[facility] [address] [place], [address] Lymphocytes/100 WBC (Bld) 24.2 % Normal 19-41 [facility] Comment on above: Performed By: #### L 500.4050, L300.3900, L300.4310, L100.0100, L503.6005, M200.1000 ####[facility] [address] [place], [address] MCH (RBC) [Entitic mass] 27.2 pg Normal 27.0-32.0 [facility] Comment on above: Performed By: #### L 500.4050, L300.3900, L300.4310, L100.0100, L503.6005, M200.1000 ####[facility] [address] [place], [address] MCHC (RBC) [Mass/Vol] 30.1 g/dL Low 32-36 [facility] Comment on above: Performed By: #### L 500.4050, L300.3900, L300.4310, L100.0100, L503.6005, M200.1000 ####[facility] [address] [place], [address] MCV (RBC) [Entitic vol] 90.3 fL Normal 81-99 [facility] Comment on above: Performed By: #### L 500.4050, L300.3900, L300.4310, L100.0100, L503.6005, M200.1000 ####[facility] [address] [place], [address] Monocytes/100 WBC (Bld) 6.9 % Normal 0-10 [facility] Comment on above: Performed By: #### L 500.4050, L300.3900, L300.4310, L100.0100, L503.6005, M200.1000 ####[facility] [address] [place], [address] Neutrophils/100 WBC (Bld) 66.1 % Normal 47-70 [facility] Comment on above: Performed By: #### L 500.4050, L300.3900, L300.4310, L100.0100, L503.6005, M200.1000 ####[facility] [address] [place], [address] Nucleated RBC (Bld) [#/Vol] 0 10*3/uL Normal 0-5 [facility] Comment on above: Performed By: #### L 500.4050, L300.3900, L300.4310, L100.0100, L503.6005, M200.1000 ####[facility] [address] [place], [address] Platelet mean volume (Bld) [Entitic vol] 10.6 fL Normal 6.2-12.0 [facility] Comment on above: Performed By: #### L 500.4050, L300.3900, L300.4310, L100.0100, L503.6005, M200.1000 ####[facility] [address] [place], [address] Platelets (Bld) [#/Vol] 334 10*3/uL Normal 150-450 [facility] Comment on above: Performed By: #### L 500.4050, L300.3900, L300.4310, L100.0100, L503.6005, M200.1000 ####[facility] [address] [place], [address] RBC (Bld) [#/Vol] 3.71 10*6/uL Low 4.2-5.4 [facility] Comment on above: Performed By: #### L 500.4050, L300.3900, L300.4310, L100.0100, L503.6005, M200.1000 ####[facility] [address] [place], [address] RDW SD 52.9 fl High 35.1-43.9 [facility] Comment on above: Performed By: #### L 500.4050, L300.3900, L300.4310, L100.0100, L503.6005, M200.1000 ####[facility] [address] [place], [address] WBC (Bld) [#/Vol] 7.2 10*3/uL Normal 4.4-11.0 [facility] Comment on above: Performed By: #### L 500.4050, L300.3900, L300.4310, L100.0100, L503.6005, M200.1000 ####[facility] [address] [place], [address] Carbon dioxide, total [Moles /volume] in Central venous bloodOrdered By: Jeevan Yoder on 03-04-2025 CO2 [Moles/Vol] 29.0 mmol/L 21.0-32.0 [facility] Chloride assayOrdered By: Kenny Yoder on 03-04-2025 Chloride [Moles/Vol] 97 mmol/L Low 98-108 [facility] Comprehensive Metabolic Prof ilon 03-04-2025 Albumin [Mass/Vol] 3.3 g/dL Low 3.4-4.8 [facility] Comment on above: Performed By: #### L 500.4050, L300.3900, L300.4310, L100.0100, L503.6005, M200.1000 ####[facility] [address] [place], [address] Albumin/Globulin [Mass ratio] 0.9 {ratio} Normal 0.9-2.4 [facility] Comment on above: Performed By: #### L 500.4050, L300.3900, L300.4310, L100.0100, L503.6005, M200.1000 ####[facility] [address] [place], [address] ALK PHOS 79 U/L Normal 35-104 [facility] Comment on above: Performed By: #### L 500.4050, L300.3900, L300.4310, L100.0100, L503.6005, M200.1000 ####[facility] [address] [place], [address] ALT [Catalytic activity/Vol] 25 U/L Normal <=34 [facility] Comment on above: Performed By: #### L 500.4050, L300.3900, L300.4310, L100.0100, L503.6005, M200.1000 ####[facility] [address] [place], [address] AST [Catalytic activity/Vol] 26 U/L Normal <=31 [facility] Comment on above: Performed By: #### L 500.4050, L300.3900, L300.4310, L100.0100, L503.6005, M200.1000 ####[facility] [address] [place], [address] Bilirubin [Mass/Vol] 0.25 mg/dL Normal 0.00-1.30 [facility] Comment on above: Performed By: #### L 500.4050, L300.3900, L300.4310, L100.0100, L503.6005, M200.1000 ####[facility] [address] [place], [address] BUN/CRE 18.1 RATIO Normal 10-20 [facility] Comment on above: Performed By: #### L 500.4050, L300.3900, L300.4310, L100.0100, L503.6005, M200.1000 ####[facility] [address] [place], [address] Calcium [Mass/Vol] 10.7 mg/dL Normal 7.6-11.0 [facility] Comment on above: Performed By: #### L 500.4050, L300.3900, L300.4310, L100.0100, L503.6005, M200.1000 ####[facility] [address] [place], [address] Chloride [Moles/Vol] 97 mmol/L Low 98-108 [facility] Comment on above: Performed By: #### L 500.4050, L300.3900, L300.4310, L100.0100, L503.6005, M200.1000 ####[facility] [address] [place], [address] CO2 [Moles/Vol] 29.0 mmol/L Normal 21.0-32.0 [facility] Comment on above: Performed By: #### L 500.4050, L300.3900, L300.4310, L100.0100, L503.6005, M200.1000 ####[facility] [address] [place], [address] Creatinine [Mass/Vol] 1.29 mg/dL High 0.70-1.20 [facility] Comment on above: Performed By: #### L 500.4050, L300.3900, L300.4310, L100.0100, L503.6005, M200.1000 ####[facility] [address] [place], [address] ECRCL 32.46 ml/min Low 50-250 [facility] Comment on above: Performed By: #### L 500.4050, L300.3900, L300.4310, L100.0100, L503.6005, M200.1000 ####[facility] [address] [place], [address] GAP 11 Normal 5-15 [facility] Comment on above: Performed By: #### L 500.4050, L300.3900, L300.4310, L100.0100, L503.6005, M200.1000 ####[facility] [address] [place], [address] GFR/1.73 sq M.predicted among non-blacks MDRD (S/P/Bld) [Vol rate/Area] 42 mL/min/{1.73_m2} Low >60 [facility] Comment on above: Result Comment: mL/m in/1.73m2 CKD-EPI Creatinine Equation (2020) Performed By: #### L 500.4050, L300.3900, L300.4310, L100.0100, L503.6005, M200.1000 ####[facility] [address] [place], [address] Globulin (S) [Mass/Vol] 3.6 g/dL Normal 2.2-4.2 [facility] Comment on above: Performed By: #### L 500.4050, L300.3900, L300.4310, L100.0100, L503.6005, M200.1000 ####[facility] [address] [place], [address] Glucose [Mass/Vol] 116 mg/dL High 70-99 [facility] Comment on above: Performed By: #### L 500.4050, L300.3900, L300.4310, L100.0100, L503.6005, M200.1000 ####[facility] [address] [place], [address] Potassium [Moles/Vol] 5.0 mmol/L Normal 3.3-5.1 [facility] Comment on above: Performed By: #### L 500.4050, L300.3900, L300.4310, L100.0100, L503.6005, M200.1000 ####[facility] [address] [place], [address] Sodium [Moles/Vol] 136 mmol/L Normal 133-145 [facility] Comment on above: Performed By: #### L 500.4050, L300.3900, L300.4310, L100.0100, L503.6005, M200.1000 ####[facility] [address] [place], [address] T PROT 6.9 g/dL Normal 5.9-8.4 [facility] Comment on above: Performed By: #### L 500.4050, L300.3900, L300.4310, L100.0100, L503.6005, M200.1000 ####[facility] [address] [place], [address] Urea nitrogen [Mass/Vol] 23 mg/dL High 4-19 [facility] Comment on above: Performed By: #### L 500.4050, L300.3900, L300.4310, L100.0100, L503.6005, M200.1000 ####[facility] [address] [place], [place], [id number] Emergency Department Summary on 03-04-2025 Emergency Department Summary Normal [facility] Eosinophil percentageOrdered By: Jeevan Yoder on 03-04-2025 Eosinophils/100 WBC (Bld) 1.7 % 0-5 [facility] Erythrocyte distribution wid th ratioOrdered By: Jeevan Yoder on 03-04-2025 Erythrocyte distribution width (RBC) [Ratio] 16.2 % High 11.6-14.6 [facility] Erythrocyte distribution wid th standard deviationOrdered By: Jeevan Yoder on 03-04-2025 Erythrocyte distribution width (RBC) [Ratio] 52.9 fl High 35.1-43.9 [facility] Glomerular filtration rate ( GFR) estimation/1.73 sq m using serum, plasma, or whole bOrdered By: Jeevan Yoder on 03-04-2025 GFR/1.73 sq M.predicted among non-blacks MDRD (S/P/Bld) [Vol rate/Area] 42 mL/min/{1.73_m2} Low >60 [facility] Hematocrit Auto (Bld) [Volum e fraction]Ordered By: Jeevan Yoder on 03-04-2025 Hematocrit (Bld) [Volume fraction] 33.5 % Low 37-47 [facility] Hemoglobin measurementOrdere d By: Jeevan Yoder on 03-04-2025 Hemoglobin (Bld) [Mass/Vol] 10.1 g/dL Low 12.0-15.0 [facility] Immature granulocytes/100 WB C Auto (Bld)Ordered By: Jeevan Yoder on 03-04-2025 Immature granulocytes/100 WBC (Bld) 0.700 % 0.0-0.9 [facility] Ketones Test strip Ql (U)Ord ered By: Jeevan Yoder on 03-04-2025 Ketones Ql (U) 5 mg/dl High Negative [facility] Lactic Acidon 03-04-2025 Lactate [Moles/Vol] 2.0 mmol/L Normal 0.0-2.0 [facility] Comment on above: Order Comment: Y Result Comment: Crit ical Result(s) Called at: 2056 by:??ARCHIE LOVE Results read back by same. Performed By: #### L 500.4050, L300.3900, L300.4310, L100.0100, L503.6005, M200.1000 ####[facility] [address] [place], [address] MCV (mean corpuscular volume ) determinationOrdered By: Jeevan Yoder on 03-04-2025 MCV (RBC) [Entitic vol] 90.3 fL 81-99 [facility] Mean corpuscular hemoglobin (MCH) determinationOrdered By: Jeevan Yoder on 03-04-2025 MCH (RBC) [Entitic mass] 27.2 pg 27.0-32.0 [facility] Monocyte percentageOrdered B y: Jeevan Yoder on 03-04-2025 Monocytes/100 WBC (Bld) 6.9 % 0-10 [facility] Mucus LM Ql (Urine sed)Order ed By: Jeevan Yoder on 03-04-2025 Mucus Ql (Urine sed) 0 SEEN /hpf [facility] Neutrophil percentageOrdered By: Jeevan Yoedr on 03-04-2025 Neutrophils/100 WBC (Bld) 66.1 % 47-70 [facility] Nitrite Test strip Ql (U)Ord ered By: Jeevan Yoder on 03-04-2025 Nitrite Ql (U) Negative Negative [facility] No Panel InformationOrdered By: Jeevan Yoder on 03-04-2025 26 U/L <32 [facility] Partial Thromboplast Timeon 03-04-2025 aPTT Coag (Bld) [Time] 25.2 s Normal 24.1-36.2 [place] Comment on above: Performed By: #### L 500.4050, L300.3900, L300.4310, L100.0100, L503.6005, M200.1000 ####[facility] [address], [address] Platelet countOrdered By: Kenny Yoder on 03-04-2025 Platelets (Bld) [#/Vol] 334 10*3/uL 150-450 [facility] Potassium measurement (mass/ volume)Ordered By: Jeevan Yoder on 03-04-2025 Potassium (Unsp spec) [Mass/Vol] 5.0 mmol/L 3.3-5.1 [facility] Protein Test strip Ql (U)Ord ered By: Jeevan Yoder on 03-04-2025 Protein Ql (U) 100 mg/dl High Negative [facility] Prothrombin Time w/INRon INR Coag (PPP) [Relative time] 1.0 {INR} Normal [facility] Comment on above: Performed By: #### L 500.4050, L300.3900, L300.4310, L100.0100, L503.6005, M200.1000 ####[facility] [address] [place], [address] PT Coag (PPP) [Time] 13.8 s Normal 11.7-14.9 [facility] Comment on above: Performed By: #### L 500.4050, L300.3900, L300.4310, L100.0100, L503.6005, M200.1000 ####[facility] [address] [place], [address] Prothrombin timeOrdered By: Jeevan Yoder on 03-04-2025 PT Coag (PPP) [Time] 13.8 s 11.7-14.9 [facility] RBC Auto (Bld) [#/Vol]Ordere d By: Jeevan Yoder on 03-04-2025 RBC (Bld) [#/Vol] 3.71 10*6/uL Low 4.2-5.4 [facility] Serum creatinine measurement (mass/volume)Ordered By: Jeevan Yoder on 03-04-2025 Creatinine [Mass/Vol] 1.29 mg/dL High 0.70-1.20 [facility] Serum globulin measurementOr dered By: Jeevan Yoder on 03-04-2025 Globulin (S) [Mass/Vol] 3.6 g/dL 2.2-4.2 [facility] Serum glucose measurement (m ass/volume)Ordered By: Jeevan Yoder on 03-04-2025 Glucose [Mass/Vol] 116 mg/dL High 70-99 [facility] Serum or plasma alanine kelley otransferase (ALT) measurementOrdered By: Jeevan Yoder on 03-04-2025 ALT [Catalytic activity/Vol] 25 U/L <35 [facility] Serum or plasma albumin melanie urement (mass/volume)Ordered By: Jeevan Yoder on 03-04-2025 Albumin [Mass/Vol] 3.3 g/dL Low 3.4-4.8 [facility] Serum or plasma albumin/glob ulin mass ratioOrdered By: Jeevan Yoder on 03-04-2025 Albumin/Globulin [Mass ratio] 0.9 {ratio} 0.9-2.4 [facility] Serum or plasma alkaline lissa sphatase measurementOrdered By: Jeevan Yoder on 03-04-2025 ALP [Catalytic activity/Vol] 79 U/L 35-104 [facility] Serum or plasma calcium melanie urement (mass/volume)Ordered By: Jeevan Yoder on 03-04-2025 Calcium [Mass/Vol] 10.7 mg/dL 7.6-11.0 [facility] Serum or plasma urea nitroge n measurement (mass/volume)Ordered By: Jeevan Yoder on 03-04-2025 Urea nitrogen [Mass/Vol] 23 mg/dL High 4-19 [facility] Sodium levelOrdered By: Marcelino Yoder on 03-04-2025 Sodium [Moles/Vol] 136 mmol/L 133-145 [facility] Squamous epithelial cells de tection in urine sediment by light microscopyOrdered By: Jeevan Yoder on 03-04-2025 Epithelial cells.squamous LM Ql (Urine sed) 0-5 SEEN /hpf 5-10 [facility] Total proteinOrdered By: Maeve Yoder on 03-04-2025 Protein [Mass/Vol] 6.9 g/dL 5.9-8.4 [facility] Urinalysis, Completeon 03-04 BACTERIA 4+ /hpf Normal None Seen [facility] Comment on above: Order Comment: MARSHALL CTOR TO SPECIFY Performed By: #### L 400.0001, M100.2200 ####[facility] [address] [place], [address] EPI,SQUAMOUS 0-5 SEEN Normal 5-10 [facility] Comment on above: Order Comment: MARSHALL CTOR TO SPECIFY Performed By: #### L 400.0001, M1.0 ####[facility] [address] [place], [address] RBC 0-5 SEEN Normal 0-5 [facility] Comment on above: Order Comment: MARSHALL CTOR TO SPECIFY Performed By: #### L 400.0001, M100.2200 ####[facility] [address] [place], [address] YEAST 2+ /hpf Normal None Seen [facility] Comment on above: Order Comment: MARSHALL CTOR TO SPECIFY Performed By: #### L 400.0001, M100.0 ####[facility] [address] [place], [address] AMORPHOUS 3+ Normal [facility] Comment on above: Order Comment: MARSHALL CTOR TO SPECIFY Performed By: #### L 400.0001, M100.2200 ####[facility] [address] [place], [address] WBC 25-50 SEEN Normal 0-5 [facility] Comment on above: Order Comment: COLLE CTOR TO SPECIFY Performed By: #### L 400.0001, M100.0 ####[facility] [address] [place], [address] Mucus Ql (Urine sed) 0 SEEN Normal [facility] Comment on above: Order Comment: MARSHALL CTOR TO SPECIFY Performed By: #### L 400.0001, M100.2200 ####[facility] [address] [place], [address] Urine clarityOrdered By: Maeve Yoder on 03-04-2025 Clarity (U) Cloudy Clear [facility] Urine color determinationOrd ered By: Jeevan Yoder on 03-04-2025 Color (U) Straw Yellow [facility] Urine cultureOrdered By: Maeve Yoder on 03-04-2025 Bacteria identified Cx Nom (U) Enterococcus faecalis Abnormal [facility] Urine glucose detectionOrder ed By: Jeevan Yoder on 03-04-2025 Glucose Ql (U) 100 mg/dl High Normal [facility] Urine leukocyte esterase det ection by dipstickOrdered By: Jeevan Yoder on 03-04-2025 Leukocyte esterase Test strip Ql (U) 500 /ul High Negative [facility] Urine pHOrdered By: Jeevan rai on 03-04-2025 pH (U) 7.0 [pH] 5.0 - 8.0 [facility] Urine sediment bacteria coun t by microscopy (number/high power field)Ordered By: Jeevan Yoder on 03-04-2025 Bacteria LM.HPF (Urine sed) [#/Area] 4 /[HPF] None Seen [facility] Urine sediment yeast count b y microscopy (number/high powered field)Ordered By: Jeevan Yoder on 03-04-2025 Yeast LM.HPF (Urine sed) [#/Area] 2 /[HPF] None Seen [facility] Urine specific gravity measu rementOrdered By: Jeevan Yoder on 03-04-2025 Specific gravity (U) [Rel density] 1.010 1.002-1.030 [facility] Urine urobilinogen measureme ntOrdered By: Jeevan Yoder on 03-04-2025 Urobilinogen Ql (U) Normal mg/dl Normal [facility] White blood cell (WBC) count Ordered By: Jeevan Yoder on 03-04-2025 WBC (Bld) [#/Vol] 7.2 10*3/uL 4.4-11.0 [facility] White blood cell countOrdere d By: Jeevan Yoder on 03-04-2025 White blood cell count 25-50 SEEN /hpf 0-5 [facility] Basic Metabolic Profile (BMP )on 02-23-2025 BUN Normal 4-19 [facility] Comment on above: Result Comment: Canc elled via OM: Order cancelled - Patient discharged Performed By: #### L 500.2500, L100.0100 ####[facility] [address] [place], [address] BUN/CRE Normal 10-20 [facility] Comment on above: Result Comment: Canc elled via OM: Order cancelled - Patient discharged Performed By: #### L 500.2500, L100.0100 ####[facility] [address] [place], [address] Calcium Normal 7.6-11.0 [facility] Comment on above: Result Comment: Canc elled via OM: Order cancelled - Patient discharged Performed By: #### L 500.2500, L100.0100 ####[facility] [address] [place], [address] CL Normal 98-108 [facility] Comment on above: Result Comment: Canc elled via OM: Order cancelled - Patient discharged Performed By: #### L 500.2500, L100.0100 ####[facility] [address] [place], [address] CO2 Normal 21.0-32.0 [facility] Comment on above: Result Comment: Canc elled via OM: Order cancelled - Patient discharged Performed By: #### L 500.2500, L100.0100 ####[facility] [address] [place], [address] CREAT,SERUM Normal 0.70-1.20 [facility] Comment on above: Result Comment: Canc elled via OM: Order cancelled - Patient discharged Performed By: #### L 500.2500, L100.0100 ####[facility] [address] [place], [address] eGFR Normal >60 [facility] Comment on above: Result Comment: Canc elled via OM: Order cancelled - Patient discharged Performed By: #### L 500.2500, L100.0100 ####[facility] [address] [place], [address] GAP Normal 5-15 [facility] Comment on above: Result Comment: Canc elled via OM: Order cancelled - Patient discharged Performed By: #### L 500.2500, L100.0100 ####[facility] [address] [place], [address] GLU Normal 70-99 [facility] Comment on above: Result Comment: Canc elled via OM: Order cancelled - Patient discharged Performed By: #### L 500.2500, L100.0100 ####[facility] [address] [place], [address] Potassium Normal 3.3-5.1 [facility] Comment on above: Result Comment: Canc elled via OM: Order cancelled - Patient discharged Performed By: #### L 500.2500, L100.0100 ####[facility] [address] [place], [address] Basic Metabolic Profile (BMP) Normal 133-145 [facility] Comment on above: Result Comment: Canc elled via OM: Order cancelled - Patient discharged Performed By: #### L 500.2500, L100.0100 ####[facility] [address] [place], [address] CBC W/Diff, Automatedon 06-2 Absolute Neut Normal 2.0-7.7 [facility] Comment on above: Result Comment: Canc elled via OM: Order cancelled - Patient discharged Performed By: #### L 500.2500, L100.0100 ####[facility] [address] [place], [address] HCT Normal 37-47 [facility] Comment on above: Result Comment: Canc elled via OM: Order cancelled - Patient discharged Performed By: #### L 500.2500, L100.0100 ####[facility] [address] [place], [address] HGB Normal 12.0-15.0 [facility] Comment on above: Result Comment: Canc elled via OM: Order cancelled - Patient discharged Performed By: #### L 500.2500, L100.0100 ####[facility] [address] [place], [address] MCH Normal 27.0-32.0 [facility] Comment on above: Result Comment: Canc elled via OM: Order cancelled - Patient discharged Performed By: #### L 500.2500, L100.0100 ####[facility] [address] [place], [address] MCHC Normal 32-36 [facility] Comment on above: Result Comment: Canc elled via OM: Order cancelled - Patient discharged Performed By: #### L 500.2500, L100.0100 ####[facility] [address] [place], [address] MCV Normal 81-99 [facility] Comment on above: Result Comment: Canc elled via OM: Order cancelled - Patient discharged Performed By: #### L 500.2500, L100.0100 ####[facility] [address] [place], [address] NEUT% Normal 47-70 [facility] Comment on above: Result Comment: Canc elled via OM: Order cancelled - Patient discharged Performed By: #### L 500.2500, L100.0100 ####[facility] [address] [place], [address] PLT Normal 150-450 [facility] Comment on above: Result Comment: Canc elled via OM: Order cancelled - Patient discharged Performed By: #### L 500.2500, L100.0100 ####[facility] [address] [place], [address] RBC Normal 4.2-5.4 [facility] Comment on above: Result Comment: Canc elled via OM: Order cancelled - Patient discharged Performed By: #### L 500.2500, L100.0100 ####[facility] [address] [place], [address] RDW CV Normal 11.6-14.6 [facility] Comment on above: Result Comment: Canc elled via OM: Order cancelled - Patient discharged Performed By: #### L 500.2500, L100.0100 ####[facility] [address] [place], [address] RDW SD Normal 35.1-43.9 [facility] Comment on above: Result Comment: Canc elled via OM: Order cancelled - Patient discharged Performed By: #### L 500.2500, L100.0100 ####[facility] [address] [place], [address] WBC Normal 4.4-11.0 [facility] Comment on above: Result Comment: Canc elled via OM: Order cancelled - Patient discharged Performed By: #### L 500.2500, L100.0100 ####[facility] [address] [place], [address] Basic Metabolic Profile (BMP )on 02-22-2025 BUN Normal 4-19 [facility] Comment on above: Result Comment: Canc elled via OM: Order cancelled - Patient discharged Performed By: #### L 500.2500, L100.0100 ####[facility] [address] [place], [address] BUN/CRE Normal 10-20 [facility] Comment on above: Result Comment: Canc elled via OM: Order cancelled - Patient discharged Performed By: #### L 500.2500, L100.0100 ####[facility] [address] [place], [address] Calcium Normal 7.6-11.0 [facility] Comment on above: Result Comment: Canc elled via OM: Order cancelled - Patient discharged Performed By: #### L 500.2500, L100.0100 ####[facility] [address] [place], [address] CL Normal 98-108 [facility] Comment on above: Result Comment: Canc elled via OM: Order cancelled - Patient discharged Performed By: #### L 500.2500, L100.0100 ####[facility] [address] [place], [address] CO2 Normal 21.0-32.0 [facility] Comment on above: Result Comment: Canc elled via OM: Order cancelled - Patient discharged Performed By: #### L 500.2500, L100.0100 ####[facility] [address] [place], [address] CREAT,SERUM Normal 0.70-1.20 [facility] Comment on above: Result Comment: Canc elled via OM: Order cancelled - Patient discharged Performed By: #### L 500.2500, L100.0100 ####[facility] [address] [place], [address] eGFR Normal >60 [facility] Comment on above: Result Comment: Canc elled via OM: Order cancelled - Patient discharged Performed By: #### L 500.2500, L100.0100 ####[facility] [address] [place], [address] GAP Normal 5-15 [facility] Comment on above: Result Comment: Canc elled via OM: Order cancelled - Patient discharged Performed By: #### L 500.2500, L100.0100 ####[facility] [address] [place], [address] GLU Normal 70-99 [facility] Comment on above: Result Comment: Canc elled via OM: Order cancelled - Patient discharged Performed By: #### L 500.2500, L100.0100 ####[facility] [address] [place], [address] Potassium Normal 3.3-5.1 [facility] Comment on above: Result Comment: Canc elled via OM: Order cancelled - Patient discharged Performed By: #### L 500.2500, L100.0100 ####[facility] [address] [place], [address] Basic Metabolic Profile (BMP) Normal 133-145 [facility] Comment on above: Result Comment: Canc elled via OM: Order cancelled - Patient discharged Performed By: #### L 500.2500, L100.0100 ####[facility] [address] [place], [address] CBC W/Diff, Automatedon 06-2 Absolute Neut Normal 2.0-7.7 [facility] Comment on above: Result Comment: Canc elled via OM: Order cancelled - Patient discharged Performed By: #### L 500.2500, L100.0100 ####[facility] [address] [place], [address] HCT Normal 37-47 [facility] Comment on above: Result Comment: Canc elled via OM: Order cancelled - Patient discharged Performed By: #### L 500.2500, L100.0100 ####[facility] [address] [place], [address] HGB Normal 12.0-15.0 [facility] Comment on above: Result Comment: Canc elled via OM: Order cancelled - Patient discharged Performed By: #### L 500.2500, L100.0100 ####[facility] [address] [place], [address] MCH Normal 27.0-32.0 [facility] Comment on above: Result Comment: Canc elled via OM: Order cancelled - Patient discharged Performed By: #### L 500.2500, L100.0100 ####[facility] [address] [place], [address] MCHC Normal 32-36 [facility] Comment on above: Result Comment: Canc elled via OM: Order cancelled - Patient discharged Performed By: #### L 500.2500, L100.0100 ####[facility] [address] [place], [address] MCV Normal 81-99 [facility] Comment on above: Result Comment: Canc elled via OM: Order cancelled - Patient discharged Performed By: #### L 500.2500, L100.0100 ####[facility] [address] [place], [address] NEUT% Normal 47-70 [facility] Comment on above: Result Comment: Canc elled via OM: Order cancelled - Patient discharged Performed By: #### L 500.2500, L100.0100 ####[facility] [address] [place], [address] PLT Normal 150-450 [facility] Comment on above: Result Comment: Canc elled via OM: Order cancelled - Patient discharged Performed By: #### L 500.2500, L100.0100 ####[facility] [address] [place], [address] RBC Normal 4.2-5.4 [facility] Comment on above: Result Comment: Canc elled via OM: Order cancelled - Patient discharged Performed By: #### L 500.2500, L100.0100 ####[facility] [address] [place], [address] RDW CV Normal 11.6-14.6 [facility] Comment on above: Result Comment: Canc elled via OM: Order cancelled - Patient discharged Performed By: #### L 500.2500, L100.0100 ####[facility] [address] [place], [address] RDW SD Normal 35.1-43.9 [facility] Comment on above: Result Comment: Canc elled via OM: Order cancelled - Patient discharged Performed By: #### L 500.2500, L100.0100 ####[facility] [address] [place], [address] WBC Normal 4.4-11.0 [facility] Comment on above: Result Comment: Canc elled via OM: Order cancelled - Patient discharged Performed By: #### L 500.2500, L100.0100 ####[facility] [address] [place], [address] Basic Metabolic Profile (BMP )on 02-21-2025 BUN Normal 4-19 [facility] Comment on above: Result Comment: Canc elled via OM: Order cancelled - Patient discharged Performed By: #### L 500.2500, L100.0100 ####[facility] [address] [place], [address] BUN/CRE Normal 10-20 [facility] Comment on above: Result Comment: Canc elled via OM: Order cancelled - Patient discharged Performed By: #### L 500.2500, L100.0100 ####[facility] [address] [place], [address] Calcium Normal 7.6-11.0 [facility] Comment on above: Result Comment: Canc elled via OM: Order cancelled - Patient discharged Performed By: #### L 500.2500, L100.0100 ####[facility] [address] [place], [address] CL Normal 98-108 [facility] Comment on above: Result Comment: Canc elled via OM: Order cancelled - Patient discharged Performed By: #### L 500.2500, L100.0100 ####[facility] [address] [place], [address] CO2 Normal 21.0-32.0 [facility] Comment on above: Result Comment: Canc elled via OM: Order cancelled - Patient discharged Performed By: #### L 500.2500, L100.0100 ####[facility] [address] [place], [address] CREAT,SERUM Normal 0.70-1.20 [facility] Comment on above: Result Comment: Canc elled via OM: Order cancelled - Patient discharged Performed By: #### L 500.2500, L100.0100 ####[facility] [address] [place], [address] eGFR Normal >60 [facility] Comment on above: Result Comment: Canc elled via OM: Order cancelled - Patient discharged Performed By: #### L 500.2500, L100.0100 ####[facility] [address] [place], [address] GAP Normal 5-15 [facility] Comment on above: Result Comment: Canc elled via OM: Order cancelled - Patient discharged Performed By: #### L 500.2500, L100.0100 ####[facility] [address] [place], [address] GLU Normal 70-99 [facility] Comment on above: Result Comment: Canc elled via OM: Order cancelled - Patient discharged Performed By: #### L 500.2500, L100.0100 ####[facility] [address] [place], [address] Potassium Normal 3.3-5.1 [facility] Comment on above: Result Comment: Canc elled via OM: Order cancelled - Patient discharged Performed By: #### L 500.2500, L100.0100 ####[facility] [address] [place], [address] Basic Metabolic Profile (BMP) Normal 133-145 [facility] Comment on above: Result Comment: Canc elled via OM: Order cancelled - Patient discharged Performed By: #### L 500.2500, L100.0100 ####[facility] [address] [place], [address] CBC W/Diff, Automatedon 06-2 Absolute Neut Normal 2.0-7.7 [facility] Comment on above: Result Comment: Canc elled via OM: Order cancelled - Patient discharged Performed By: #### L 500.2500, L100.0100 ####[facility] [address] [place], [address] HCT Normal 37-47 [facility] Comment on above: Result Comment: Canc elled via OM: Order cancelled - Patient discharged Performed By: #### L 500.2500, L100.0100 ####[facility] [address] [place], [address] HGB Normal 12.0-15.0 [facility] Comment on above: Result Comment: Canc elled via OM: Order cancelled - Patient discharged Performed By: #### L 500.2500, L100.0100 ####[facility] [address] [place], [address] MCH Normal 27.0-32.0 [facility] Comment on above: Result Comment: Canc elled via OM: Order cancelled - Patient discharged Performed By: #### L 500.2500, L100.0100 ####[facility] [address] [place], [address] MCHC Normal 32-36 [facility] Comment on above: Result Comment: Canc elled via OM: Order cancelled - Patient discharged Performed By: #### L 500.2500, L100.0100 ####[facility] [address] [place], [address] MCV Normal 81-99 [facility] Comment on above: Result Comment: Canc elled via OM: Order cancelled - Patient discharged Performed By: #### L 500.2500, L100.0100 ####[facility] [address] [place], [address] NEUT% Normal 47-70 [facility] Comment on above: Result Comment: Canc elled via OM: Order cancelled - Patient discharged Performed By: #### L 500.2500, L100.0100 ####[facility] [address] [place], [address] PLT Normal 150-450 [facility] Comment on above: Result Comment: Canc elled via OM: Order cancelled - Patient discharged Performed By: #### L 500.2500, L100.0100 ####[facility] [address] [place], [address] RBC Normal 4.2-5.4 [facility] Comment on above: Result Comment: Canc elled via OM: Order cancelled - Patient discharged Performed By: #### L 500.2500, L100.0100 ####[facility] [address] [place], [address] RDW CV Normal 11.6-14.6 [facility] Comment on above: Result Comment: Canc elled via OM: Order cancelled - Patient discharged Performed By: #### L 500.2500, L100.0100 ####[facility] [address] [place], [address] RDW SD Normal 35.1-43.9 [facility] Comment on above: Result Comment: Canc elled via OM: Order cancelled - Patient discharged Performed By: #### L 500.2500, L100.0100 ####[facility] [address] [place], [address] WBC Normal 4.4-11.0 [facility] Comment on above: Result Comment: Canc elled via OM: Order cancelled - Patient discharged Performed By: #### L 500.2500, L100.0100 ####[facility] [address] [place], [address] Basic Metabolic Profile (BMP )on 02-20-2025 BUN Normal 4-19 [facility] Comment on above: Result Comment: Canc elled via OM: Order cancelled - Patient discharged Performed By: #### L 100.0100, L500.2500 ####[facility] [address] [place], [address] BUN/CRE Normal 10-20 [facility] Comment on above: Result Comment: Canc elled via OM: Order cancelled - Patient discharged Performed By: #### L 100.0100, L500.2500 ####[facility] [address] [place], [address] Calcium Normal 7.6-11.0 [facility] Comment on above: Result Comment: Canc elled via OM: Order cancelled - Patient discharged Performed By: #### L 100.0100, L500.2500 ####[facility] [address] [place], [address] CL Normal 98-108 [facility] Comment on above: Result Comment: Canc elled via OM: Order cancelled - Patient discharged Performed By: #### L 100.0100, L500.2500 ####[facility] [address] [place], [address] CO2 Normal 21.0-32.0 [facility] Comment on above: Result Comment: Canc elled via OM: Order cancelled - Patient discharged Performed By: #### L 100.0100, L500.2500 ####[facility] [address] [place], [address] CREAT,SERUM Normal 0.70-1.20 [facility] Comment on above: Result Comment: Canc elled via OM: Order cancelled - Patient discharged Performed By: #### L 100.0100, L500.2500 ####[facility] [address] [place], [address] eGFR Normal >60 [facility] Comment on above: Result Comment: Canc elled via OM: Order cancelled - Patient discharged Performed By: #### L 100.0100, L500.2500 ####[facility] [address] [place], [address] GAP Normal 5-15 [facility] Comment on above: Result Comment: Canc elled via OM: Order cancelled - Patient discharged Performed By: #### L 100.0100, L500.2500 ####[facility] [address] [place], [address] GLU Normal 70-99 [facility] Comment on above: Result Comment: Canc elled via OM: Order cancelled - Patient discharged Performed By: #### L 100.0100, L500.2500 ####[facility] [address] [place], [address] Potassium Normal 3.3-5.1 [facility] Comment on above: Result Comment: Canc elled via OM: Order cancelled - Patient discharged Performed By: #### L 100.0100, L500.2500 ####[facility] [address] [place], [address] Basic Metabolic Profile (BMP) Normal 133-145 [facility] Comment on above: Result Comment: Canc elled via OM: Order cancelled - Patient discharged Performed By: #### L 100.0100, L500.2500 ####[facility] [address] [place], [address] Bedside Glucoseon 02-20-2025 FINGERSTICK GLU 385 mg/dL High 74-106 [facility] Comment on above: Result Comment: KATARINA GEMENT OF PATIENT CARE PER NURSING PROTOCOL Performed By: #### L 501.080 ####[facility] [address] [place], [address] FINGERSTICK GLU 419 mg/dL High 74-106 [facility] Comment on above: Result Comment: KATARINA GEMENT OF PATIENT CARE PER NURSING PROTOCOL Performed By: #### L 501.080 ####[facility] [address] [place], [address] CBC W/Diff, Automatedon 01-30 Absolute Neut Normal 2.0-7.7 [facility] Comment on above: Result Comment: Canc elled via OM: Order cancelled - Patient discharged Performed By: #### L 100.0100, L500.2500 ####[facility] [address] [place], [address] HCT Normal 37-47 [facility] Comment on above: Result Comment: Canc elled via OM: Order cancelled - Patient discharged Performed By: #### L 100.0100, L500.2500 ####[facility] [address] [place], [address] HGB Normal 12.0-15.0 [facility] Comment on above: Result Comment: Canc elled via OM: Order cancelled - Patient discharged Performed By: #### L 100.0100, L500.2500 ####[facility] [address] [place], [address] MCH Normal 27.0-32.0 [facility] Comment on above: Result Comment: Canc elled via OM: Order cancelled - Patient discharged Performed By: #### L 100.0100, L500.2500 ####[facility] [address] [place], [address] MCHC Normal 32-36 [facility] Comment on above: Result Comment: Canc elled via OM: Order cancelled - Patient discharged Performed By: #### L 100.0100, L500.2500 ####[facility] [address] [place], [address] MCV Normal 81-99 [facility] Comment on above: Result Comment: Canc elled via OM: Order cancelled - Patient discharged Performed By: #### L 100.0100, L500.2500 ####[facility] [address] [place], [address] NEUT% Normal 47-70 [facility] Comment on above: Result Comment: Canc elled via OM: Order cancelled - Patient discharged Performed By: #### L 100.0100, L500.2500 ####[facility] [address] [place], [address] PLT Normal 150-450 [facility] Comment on above: Result Comment: Canc elled via OM: Order cancelled - Patient discharged Performed By: #### L 100.0100, L500.2500 ####[facility] [address] [place], [address] RBC Normal 4.2-5.4 [facility] Comment on above: Result Comment: Canc elled via OM: Order cancelled - Patient discharged Performed By: #### L 100.0100, L500.2500 ####[facility] [address] [place], [address] RDW CV Normal 11.6-14.6 [facility] Comment on above: Result Comment: Canc elled via OM: Order cancelled - Patient discharged Performed By: #### L 100.0100, L500.2500 ####[facility] [address] [place], [address] RDW SD Normal 35.1-43.9 [facility] Comment on above: Result Comment: Canc elled via OM: Order cancelled - Patient discharged Performed By: #### L 100.0100, L500.2500 ####[facility] [address] [place], [address] WBC Normal 4.4-11.0 [facility] Comment on above: Result Comment: Canc elled via OM: Order cancelled - Patient discharged Performed By: #### L 100.0100, L500.2500 ####[facility] [address] [place], [address] Basic Metabolic Profile (BMP )on 02-19-2025 BUN Normal 4-19 [facility] Comment on above: Result Comment: Canc elled via OM: Order cancelled - Patient discharged Performed By: #### L 500.2500, L100.0100 ####[facility] [address] [place], [address] BUN/CRE Normal 10-20 [facility] Comment on above: Result Comment: Canc elled via OM: Order cancelled - Patient discharged Performed By: #### L 500.2500, L100.0100 ####[facility] [address] [place], [address] Calcium Normal 7.6-11.0 [facility] Comment on above: Result Comment: Canc elled via OM: Order cancelled - Patient discharged Performed By: #### L 500.2500, L100.0100 ####[facility] [address] [place], [address] CL Normal 98-108 [facility] Comment on above: Result Comment: Canc elled via OM: Order cancelled - Patient discharged Performed By: #### L 500.2500, L100.0100 ####[facility] [address] [place], [address] CO2 Normal 21.0-32.0 [facility] Comment on above: Result Comment: Canc elled via OM: Order cancelled - Patient discharged Performed By: #### L 500.2500, L100.0100 ####[facility] [address] [place], [address] CREAT,SERUM Normal 0.70-1.20 [facility] Comment on above: Result Comment: Canc elled via OM: Order cancelled - Patient discharged Performed By: #### L 500.2500, L100.0100 ####[facility] [address] [place], [address] eGFR Normal >60 [facility] Comment on above: Result Comment: Canc elled via OM: Order cancelled - Patient discharged Performed By: #### L 500.2500, L100.0100 ####[facility] [address] [place], [address] GAP Normal 5-15 [facility] Comment on above: Result Comment: Canc elled via OM: Order cancelled - Patient discharged Performed By: #### L 500.2500, L100.0100 ####[facility] [address] [place], [address] GLU Normal 70-99 [facility] Comment on above: Result Comment: Canc elled via OM: Order cancelled - Patient discharged Performed By: #### L 500.2500, L100.0100 ####[facility] [address] [place], [address] Potassium Normal 3.3-5.1 [facility] Comment on above: Result Comment: Canc elled via OM: Order cancelled - Patient discharged Performed By: #### L 500.2500, L100.0100 ####[facility] [address] [place], [address] Basic Metabolic Profile (BMP) Normal 133-145 [facility] Comment on above: Result Comment: Canc elled via OM: Order cancelled - Patient discharged Performed By: #### L 500.2500, L100.0100 ####[facility] [address] [place], [address] CBC W/Diff, Automatedon 06-2 Absolute Neut Normal 2.0-7.7 [facility] Comment on above: Result Comment: Canc elled via OM: Order cancelled - Patient discharged Performed By: #### L 500.2500, L100.0100 ####[facility] [address] [place], [address] HCT Normal 37-47 [facility] Comment on above: Result Comment: Canc elled via OM: Order cancelled - Patient discharged Performed By: #### L 500.2500, L100.0100 ####[facility] [address] [place], [address] HGB Normal 12.0-15.0 [facility] Comment on above: Result Comment: Canc elled via OM: Order cancelled - Patient discharged Performed By: #### L 500.2500, L100.0100 ####[facility] [address] [place], [address] MCH Normal 27.0-32.0 [facility] Comment on above: Result Comment: Canc elled via OM: Order cancelled - Patient discharged Performed By: #### L 500.2500, L100.0100 ####[facility] [address] [place], [address] MCHC Normal 32-36 [facility] Comment on above: Result Comment: Canc elled via OM: Order cancelled - Patient discharged Performed By: #### L 500.2500, L100.0100 ####[facility] [address] [place], [address] MCV Normal 81-99 [facility] Comment on above: Result Comment: Canc elled via OM: Order cancelled - Patient discharged Performed By: #### L 500.2500, L100.0100 ####[facility] [address] [place], [address] NEUT% Normal 47-70 [facility] Comment on above: Result Comment: Canc elled via OM: Order cancelled - Patient discharged Performed By: #### L 500.2500, L100.0100 ####[facility] [address] [place], [address] PLT Normal 150-450 [facility] Comment on above: Result Comment: Canc elled via OM: Order cancelled - Patient discharged Performed By: #### L 500.2500, L100.0100 ####[facility] [address] [place], [address] RBC Normal 4.2-5.4 [facility] Comment on above: Result Comment: Canc elled via OM: Order cancelled - Patient discharged Performed By: #### L 500.2500, L100.0100 ####[facility] [address] [place], [address] RDW CV Normal 11.6-14.6 [facility] Comment on above: Result Comment: Canc elled via OM: Order cancelled - Patient discharged Performed By: #### L 500.2500, L100.0100 ####[facility] [address] [place], [address] RDW SD Normal 35.1-43.9 [facility] Comment on above: Result Comment: Canc elled via OM: Order cancelled - Patient discharged Performed By: #### L 500.2500, L100.0100 ####[facility] [address] [place], [address] WBC Normal 4.4-11.0 [facility] Comment on above: Result Comment: Canc elled via OM: Order cancelled - Patient discharged Performed By: #### L 500.2500, L100.0100 ####[facility] [address] [place], [address] 12 Lead EKGon 02-18-2025 12 Lead EKG Normal [facility] Absolute lymphocyte countOrd ered By: Billy Kothari on 02-18-2025 Lymphocytes Auto (Unsp spec) [#/Vol] 1.53 10*3/uL 0.83-4.51 [facility] Anion gap in Serum or Plasma Ordered By: Billy Kothari on 02-18-2025 Anion gap [Moles/Vol] 11 mmol/L 5-15 [facility] Automated lymphocyte count a s percentage of total leukocytesOrdered By: Billy Kothari on 02-18-2025 Lymphocytes/100 WBC Auto (Unsp spec) 12.5 % Low 19-41 [facility] BUN/creatinine ratioOrdered By: Billy Kothari on 02-18-2025 Urea nitrogen/Creatinine [Mass ratio] 19.9 mg/mg 10-20 [facility] Basic Metabolic Profile (BMP )on 02-18-2025 BUN/CRE 19.9 RATIO Normal -20 [facility] Comment on above: Performed By: #### L 500.2500, L100.0100 ####[facility] [address] [place], [address] Calcium [Mass/Vol] 10.7 mg/dL Normal 7.6-11.0 [facility] Comment on above: Performed By: #### L 500.2500, L100.0100 ####[facility] [address] [place], [address] Chloride [Moles/Vol] 97 mmol/L Low 98-108 [facility] Comment on above: Performed By: #### L 500.2500, L100.0100 ####[facility] [address] [place], [address] CO2 [Moles/Vol] 28.1 mmol/L Normal 21.0-32.0 [facility] Comment on above: Performed By: #### L 500.2500, L100.0100 ####[facility] [address] [place], [address] Creatinine [Mass/Vol] 1.26 mg/dL High 0.70-1.20 [facility] Comment on above: Performed By: #### L 500.2500, L100.0100 ####[facility] [address] [place], [address] ECRCL 34.58 ml/min Low 50-250 [facility] Comment on above: Performed By: #### L 500.2500, L100.0100 ####[facility] [address] [place], [address] GAP 11 Normal 5-15 [facility] Comment on above: Performed By: #### L 500.2500, L100.0100 ####[facility] [address] [place], [address] GFR/1.73 sq M.predicted among non-blacks MDRD (S/P/Bld) [Vol rate/Area] 43 mL/min/{1.73_m2} Low >60 [facility] Comment on above: Result Comment: mL/m in/1.73m2 CKD-EPI Creatinine Equation (2020) Performed By: #### L 500.2500, L100.0100 ####[facility] [address] [place], [address] Glucose [Mass/Vol] 174 mg/dL High 70-99 [facility] Comment on above: Performed By: #### L 500.2500, L100.0100 ####[facility] [address] [place], [address] Potassium [Moles/Vol] 6.0 mmol/L Invalid Interpretation Code 3.3-5.1 [facility] Comment on above: Result Comment: Hemo lysis present, Results??could be affected.??Critical Result(s) Called EFINK at: 2254 by:VIET??Results read back by same.Hemolysis present, Results??could be affected.?? Performed By: #### L 500.2500, L100.0100 ####[facility] [address] [place], [address] Sodium [Moles/Vol] 136 mmol/L Normal 133-145 [facility] Comment on above: Performed By: #### L 500.2500, L100.0100 ####[facility] [address] [place], [address] Urea nitrogen [Mass/Vol] 25 mg/dL High -19 [facility] Comment on above: Performed By: #### L 500.2500, L100.0100 ####[facility] [address] [place], [address] BUN Normal -19 [facility] Comment on above: Result Comment: Canc elled via OM: Order cancelled - Patient discharged Performed By: #### L 100.0100, L500.2500 ####[facility] [address] [place], [address] BUN/CRE Normal 10-20 [facility] Comment on above: Result Comment: Canc elled via OM: Order cancelled - Patient discharged Performed By: #### L 100.0100, L500.2500 ####[facility] [address] [place], [address] Calcium Normal 7.6-11.0 [facility] Comment on above: Result Comment: Canc elled via OM: Order cancelled - Patient discharged Performed By: #### L 100.0100, L500.2500 ####[facility] [address] [place], [address] CL Normal 98-108 [facility] Comment on above: Result Comment: Canc elled via OM: Order cancelled - Patient discharged Performed By: #### L 100.0100, L500.2500 ####[facility] [address] [place], [address] CO2 Normal 21.0-32.0 [facility] Comment on above: Result Comment: Canc elled via OM: Order cancelled - Patient discharged Performed By: #### L 100.0100, L500.2500 ####[facility] [address] [place], [address] CREAT,SERUM Normal 0.70-1.20 [facility] Comment on above: Result Comment: Canc elled via OM: Order cancelled - Patient discharged Performed By: #### L 100.0100, L500.2500 ####[facility] [address] [place], [address] eGFR Normal >60 [facility] Comment on above: Result Comment: Canc elled via OM: Order cancelled - Patient discharged Performed By: #### L 100.0100, L500.2500 ####[facility] [address] [place], [address] GAP Normal 5-15 [facility] Comment on above: Result Comment: Canc elled via OM: Order cancelled - Patient discharged Performed By: #### L 100.0100, L500.2500 ####[facility] [address] [place], [address] GLU Normal 70-99 [facility] Comment on above: Result Comment: Canc elled via OM: Order cancelled - Patient discharged Performed By: #### L 100.0100, L500.2500 ####[facility] [address] [place], [address] Potassium Normal 3.3-5.1 [facility] Comment on above: Result Comment: Canc elled via OM: Order cancelled - Patient discharged Performed By: #### L 100.0100, L500.2500 ####[facility] [address] [place], [address] Basic Metabolic Profile (BMP) Normal 133-145 [facility] Comment on above: Result Comment: Canc elled via OM: Order cancelled - Patient discharged Performed By: #### L 100.0100, L500.2500 ####[facility] [address] [place], [address] Basophil percentageOrdered B y: Billy Kothari on 02-18-2025 Basophils/100 WBC (Bld) 0.2 % 0-1 [facility] CBC W/Diff, Automatedon 01-30-2024 Absolute Lymph 1.53 X10 3/uL Normal 0.83-4.51 [facility] Comment on above: Performed By: #### L 500.2500, L100.0100 ####[facility] [address] [place], [address] Absolute Neut 9.6 X10 3/uL High 2.0-7.7 [facility] Comment on above: Performed By: #### L 500.2500, L100.0100 ####[facility] [address] [place], [address] Basophils/100 WBC (Bld) 0.2 % Normal 0-1 [facility] Comment on above: Performed By: #### L 500.2500, L100.0100 ####[facility] [address] [place], [address] Eosinophils/100 WBC (Bld) 1.0 % Normal 0-5 [facility] Comment on above: Performed By: #### L 500.2500, L100.0100 ####[facility] [address] [place], [address] Erythrocyte distribution width (RBC) [Ratio] 15.9 % High 11.6-14.6 [facility] Comment on above: Performed By: #### L 500.2500, L100.0100 ####[facility] [address] [place], [address] Hematocrit (Bld) [Volume fraction] 35.8 % Low 37-47 [facility] Comment on above: Performed By: #### L 500.2500, L100.0100 ####[facility] [facility] [address] [place], [address] Hemoglobin (Bld) [Mass/Vol] 10.9 g/dL Low 12.0-15.0 [facility] Comment on above: Performed By: #### L 500.2500, L100.0100 ####[facility] [address] [place], [address] IG% 0.900 Normal 0.0-0.9 [facility] Comment on above: Result Comment: IG% - Immature Granulocytes (promyelocytes, myelocytes andmetamyelocytes) > 1% indicates that a LEFT SHIFT is Present. Performed By: #### L 500.2500, L100.0100 ####[facility] [address] [place], [address] Lymphocytes/100 WBC (Bld) 12.5 % Low 19-41 [facility] Comment on above: Performed By: #### L 500.2500, L100.0100 ####[facility] [address] [place], [address] MCH (RBC) [Entitic mass] 27.9 pg Normal 27.0-32.0 [facility] Comment on above: Performed By: #### L 500.2500, L100.0100 ####[facility] [address] [place], [address] MCHC (RBC) [Mass/Vol] 30.4 g/dL Low 32-36 [facility] Comment on above: Performed By: #### L 500.2500, L100.0100 ####[facility] [address] [place], [address] MCV (RBC) [Entitic vol] 91.6 fL Normal 81-99 [facility] Comment on above: Performed By: #### L 500.2500, L100.0100 ####[facility] [address] [place], [address] Monocytes/100 WBC (Bld) 6.7 % Normal 0-10 [facility] Comment on above: Performed By: #### L 500.2500, L100.0100 ####[facility] [address] [place], [address] Neutrophils/100 WBC (Bld) 78.7 % High 47-70 [facility] Comment on above: Performed By: #### L 500.2500, L100.0100 ####[facility] [address] [place], [address] Nucleated RBC (Bld) [#/Vol] 0 10*3/uL Normal 0-5 [facility] Comment on above: Performed By: #### L 500.2500, L100.0100 ####[facility] [address] [place], [address] Platelet mean volume (Bld) [Entitic vol] 11.5 fL Normal 6.2-12.0 [facility] Comment on above: Performed By: #### L 500.2500, L100.0100 ####[facility] [address] [place], [address] Platelets (Bld) [#/Vol] 337 10*3/uL Normal 150-450 [facility] Comment on above: Performed By: #### L 500.2500, L100.0100 ####[facility] [address] [place], [address] RBC (Bld) [#/Vol] 3.91 10*6/uL Low 4.2-5.4 [facility] Comment on above: Performed By: #### L 500.2500, L100.0100 ####[facility] [address] [place], [address] RDW SD 52.1 fl High 35.1-43.9 [facility] Comment on above: Performed By: #### L 500.2500, L100.0100 ####[facility] [address] [place], [address] WBC (Bld) [#/Vol] 12.2 10*3/uL High 4.4-11.0 [facility] Comment on above: Performed By: #### L 500.2500, L100.0100 ####[facility] [address] [place], [address] Absolute Neut Normal 2.0-7.7 [facility] Comment on above: Result Comment: Canc elled via OM: Order cancelled - Patient discharged Performed By: #### L 100.0100, L500.2500 ####[facility] [address] [place], [address] HCT Normal 37-47 [facility] Comment on above: Result Comment: Canc elled via OM: Order cancelled - Patient discharged Performed By: #### L 100.0100, L500.2500 ####[facility] [address] [place], [address] HGB Normal 12.0-15.0 [facility] Comment on above: Result Comment: Canc elled via OM: Order cancelled - Patient discharged Performed By: #### L 100.0100, L500.2500 ####[facility] [address] [place], [address] MCH Normal 27.0-32.0 [facility] Comment on above: Result Comment: Canc elled via OM: Order cancelled - Patient discharged Performed By: #### L 100.0100, L500.2500 ####[facility] [address] [place], [address] MCHC Normal 32-36 [facility] Comment on above: Result Comment: Canc elled via OM: Order cancelled - Patient discharged Performed By: #### L 100.0100, L500.2500 ####[facility] [address] [place], [address] MCV Normal 81-99 [facility] Comment on above: Result Comment: Canc elled via OM: Order cancelled - Patient discharged Performed By: #### L 100.0100, L500.2500 ####[facility] [address] [place], [address] NEUT% Normal 47-70 [facility] Comment on above: Result Comment: Canc elled via OM: Order cancelled - Patient discharged Performed By: #### L 100.0100, L500.2500 ####[facility] [address] [place], [address] PLT Normal 150-450 [facility] Comment on above: Result Comment: Canc elled via OM: Order cancelled - Patient discharged Performed By: #### L 100.0100, L500.2500 ####[facility] [address] [place], [address] RBC Normal 4.2-5.4 [facility] Comment on above: Result Comment: Canc elled via OM: Order cancelled - Patient discharged Performed By: #### L 100.0100, L500.2500 ####[facility] [address] [place], [address] RDW CV Normal 11.6-14.6 [facility] Comment on above: Result Comment: Canc elled via OM: Order cancelled - Patient discharged Performed By: #### L 100.0100, L500.2500 ####[facility] [address] [place], [address] RDW SD Normal 35.1-43.9 [facility] Comment on above: Result Comment: Canc elled via OM: Order cancelled - Patient discharged Performed By: #### L 100.0100, L500.2500 ####[facility] [address] [place], [address] WBC Normal 4.4-11.0 [facility] Comment on above: Result Comment: Canc elled via OM: Order cancelled - Patient discharged Performed By: #### L 100.0100, L500.2500 ####[facility] [address] [place], [address] Carbon dioxide, total [Moles /volume] in Central venous bloodOrdered By: Billy Kothari on 02-18-2025 CO2 [Moles/Vol] 28.1 mmol/L 21.0-32.0 [facility] Chest 1 View (Portable)on Chest 1 View (Portable) Normal [facility] Chloride assayOrdered By: Dante Kothari on 02-18-2025 Chloride [Moles/Vol] 97 mmol/L Low 98-108 [facility] Emergency Department Summary on 02-18-2025 Emergency Department Summary Normal [facility] Eosinophil percentageOrdered By: Billy Kothari on 02-18-2025 Eosinophils/100 WBC (Bld) 1.0 % 0-5 [facility] Erythrocyte distribution wid th ratioOrdered By: Billy Kothari on 02-18-2025 Erythrocyte distribution width (RBC) [Ratio] 15.9 % High 11.6-14.6 [facility] Erythrocyte distribution wid th standard deviationOrdered By: Billy Kothari on 02-18-2025 Erythrocyte distribution width (RBC) [Ratio] 52.1 fl High 35.1-43.9 [facility] Glomerular filtration rate ( GFR) estimation/1.73 sq m using serum, plasma, or whole bOrdered By: Billy Kothari on 02-18-2025 GFR/1.73 sq M.predicted among non-blacks MDRD (S/P/Bld) [Vol rate/Area] 43 mL/min/{1.73_m2} Low >60 [facility] Hematocrit Auto (Bld) [Volum e fraction]Ordered By: Billy Kothari on 02-18-2025 Hematocrit (Bld) [Volume fraction] 35.8 % Low 37-47 [facility] Hemoglobin measurementOrdere d By: Billy Kothari on 02-18-2025 Hemoglobin (Bld) [Mass/Vol] 10.9 g/dL Low 12.0-15.0 [facility] Immature granulocytes/100 WB C Auto (Bld)Ordered By: Billy Kothari on 02-18-2025 Immature granulocytes/100 WBC (Bld) 0.900 % 0.0-0.9 [facility] L503.7505on 02-18-2025 Natriuretic peptide B (Bld) [Mass/Vol] 3811 pg/mL High <=1800 [facility] Comment on above: Result Comment: Hear t Failure Unlikely: < 300 pg/mLHeart Failure Likely< 50 Years: > 450 pg/mL50-75 Years: > 900 pg/mL>75 Years: > 1800 pg/mL Performed By: #### L 503.7505 ####[facility] [address] [place], [address] MCV (mean corpuscular volume ) determinationOrdered By: Billy Kothari on 02-18-2025 MCV (RBC) [Entitic vol] 91.6 fL 81-99 [facility] Mean corpuscular hemoglobin (MCH) determinationOrdered By: Billy Kothari on 02-18-2025 MCH (RBC) [Entitic mass] 27.9 pg 27.0-32.0 [facility] Monocyte percentageOrdered B y: Billy Kothari on 02-18-2025 Monocytes/100 WBC (Bld) 6.7 % 0-10 [facility] Natriuretic peptide.B prohor hayley N-Terminal [Mass/volume] in Serum or PlasmaOrdered By: Billy Kothari on 02-18-2025 Natriuretic peptide.B prohormone N-Terminal [Mass/Vol] 3811 pg/mL High <1800 [facility] Neutrophil percentageOrdered By: Billy Kothari on 02-18-2025 Neutrophils/100 WBC (Bld) 78.7 % High 47-70 [facility] Platelet countOrdered By: Danet Kothari on 02-18-2025 Platelets (Bld) [#/Vol] 337 10*3/uL 150-450 [facility] Potassiumon 02-18-2025 Potassium [Moles/Vol] 4.7 mmol/L Normal 3.3-5.1 [facility] Comment on above: Performed By: #### L 501.5600 ####[facility] [address] [place], [place], [address] Potassium measurement (mass/ volume)Ordered By: Billy Kothari on 02-18-2025 Potassium (Unsp spec) [Mass/Vol] 4.7 mmol/L 3.3-5.1 [facility] RBC Auto (Bld) [#/Vol]Ordere d By: Billy Kothari on 02-18-2025 RBC (Bld) [#/Vol] 3.91 10*6/uL Low 4.2-5.4 [facility] Respiratory Cultureon 2024 RESPC Mixed normal respiratory karin. No Streptococcus pneumoniae, beta-hemolytic Streptococcus or Staphylococcus aureus isolated. Normal [facility] Comment on above: Performed By: #### M 100.2000, M100.2400 ####[facility] [address] [place], [place], [address] Serum creatinine measurement (mass/volume)Ordered By: Billy Kothari on 02-18-2025 Creatinine [Mass/Vol] 1.26 mg/dL High 0.70-1.20 [facility] Serum glucose measurement (m ass/volume)Ordered By: Billy Kothari on 02-18-2025 Glucose [Mass/Vol] 174 mg/dL High 70-99 [facility] Serum or plasma calcium melanie urement (mass/volume)Ordered By: Billy Kothari on 02-18-2025 Calcium [Mass/Vol] 10.7 mg/dL 7.6-11.0 [facility] Serum or plasma urea nitroge n measurement (mass/volume)Ordered By: Billy Kothari on 02-18-2025 Urea nitrogen [Mass/Vol] 25 mg/dL High 4-19 [facility] Sodium levelOrdered By: Billy Kothari on 02-18-2025 Sodium [Moles/Vol] 136 mmol/L 133-145 [facility] White blood cell (WBC) count Ordered By: Billy Kothari on 02-18-2025 WBC (Bld) [#/Vol] 12.2 10*3/uL High 4.4-11.0 [facility] Absolute lymphocyte countOrd ered By: Heydi Amaya on 02-17-2025 Lymphocytes Auto (Unsp spec) [#/Vol] 0.58 10*3/uL Low 0.83-4.51 [facility] Anion gap in Serum or Plasma Ordered By: Heydi Amaya on 02-17-2025 Anion gap [Moles/Vol] 12 mmol/L 5-15 [facility] Automated lymphocyte count a s percentage of total leukocytesOrdered By: Heydi Amaya on 02-17-2025 Lymphocytes/100 WBC Auto (Unsp spec) 7.8 % Low 19-41 [facility] BUN/creatinine ratioOrdered By: Heydi Amaya on 02-17-2025 Urea nitrogen/Creatinine [Mass ratio] 23.0 mg/mg High 10-20 [facility] Basic Metabolic Profile (BMP )on 02-17-2025 BUN/CRE 23.0 RATIO High - [facility] Comment on above: Performed By: #### L 500.2500, L100.0100 ####[facility] [address] [place], [address] Calcium [Mass/Vol] 10.3 mg/dL Normal 7.6-11.0 [facility] Comment on above: Performed By: #### L 500.2500, L100.0100 ####[facility] [address] [place], [address] Chloride [Moles/Vol] 98 mmol/L Normal 98-108 [facility] Comment on above: Performed By: #### L 500.2500, L100.0100 ####[facility] [address] [place], [address] CO2 [Moles/Vol] 23.5 mmol/L Normal 21.0-32.0 [facility] Comment on above: Performed By: #### L 500.2500, L100.0100 ####[facility] [address] [place], [address] Creatinine [Mass/Vol] 1.15 mg/dL Normal 0.70-1.20 [facility] Comment on above: Performed By: #### L 500.2500, L100.0100 ####[facility] [address] [place], [address] ECRCL 37.29 ml/min Low 50-250 [facility] Comment on above: Performed By: #### L 500.2499, L100.0100 ####[facility] [address] [place], [address] GAP 12 Normal 5-15 [facility] Comment on above: Performed By: #### L 500.2499, L100.0100 ####[facility] [address] [place], [address] GFR/1.73 sq M.predicted among non-blacks MDRD (S/P/Bld) [Vol rate/Area] 48 mL/min/{1.73_m2} Low >60 [facility] Comment on above: Result Comment: mL/m in/1.73m2 CKD-EPI Creatinine Equation (2020) Performed By: #### L 500.2499, L100.0100 ####[facility] [address] [place], [address] Glucose [Mass/Vol] 426 mg/dL High 70-99 [facility] Comment on above: Performed By: #### L 500.2500, L100.0100 ####[facility] [address] [place], [address] Potassium [Moles/Vol] 5.3 mmol/L High 3.3-5.1 [facility] Comment on above: Performed By: #### L 500.2500, L100.0100 ####[facility] [address] [place], [address] Sodium [Moles/Vol] 134 mmol/L Normal 133-145 [facility] Comment on above: Performed By: #### L 500.2500, L100.0100 ####[facility] [address] [place], [address] Urea nitrogen [Mass/Vol] 27 mg/dL High 4-19 [facility] Comment on above: Performed By: #### L 500.2500, L100.0100 ####[facility] [address] [place], [address] Basophil percentageOrdered B y: Heydishraddha Amaya on 02-17-2025 Basophils/100 WBC (Bld) 0.1 % 0-1 [facility] Bedside Glucoseon 02-17-2025 FINGERSTICK GLU 241 mg/dL High 74-106 [facility] Comment on above: Result Comment: KATARINA GEMENT OF PATIENT CARE PER NURSING PROTOCOL Performed By: #### L 501.080 ####[facility] [address] [place], [address] FINGERSTICK GLU 419 mg/dL High 74-106 [facility] Comment on above: Result Comment: KATARINA GEMENT OF PATIENT CARE PER NURSING PROTOCOL Performed By: #### L 501.080 ####[facility] [address] [place], [address] FINGERSTICK GLU 488 mg/dL Invalid Interpretation Code -106 [facility] Comment on above: Result Comment: KATARINA GEMENT OF PATIENT CARE PER NURSING PROTOCOL Performed By: #### L 501.080 ####[facility] [address] [place], [address] CBC W/Diff, Automatedon 01-30 Absolute Lymph 0.58 X10 3/uL Low 0.83-4.51 [facility] Comment on above: Performed By: #### L 500.2500, L100.0100 ####[facility] [address] [place], [address] Absolute Neut 6.4 X10 3/uL Normal 2.0-7.7 [facility] Comment on above: Performed By: #### L 500.2500, L100.0100 ####[facility] [address] [place], [address] Basophils/100 WBC (Bld) 0.1 % Normal 0-1 [facility] Comment on above: Performed By: #### L 500.2500, L100.0100 ####[facility] [address] [place], [address] Eosinophils/100 WBC (Bld) 0.1 % Normal 0-5 [facility] Comment on above: Performed By: #### L 500.2500, L100.0100 ####[facility] [address] [place], [address] Erythrocyte distribution width (RBC) [Ratio] 15.6 % High 11.6-14.6 [facility] Comment on above: Performed By: #### L 500.2500, L100.0100 ####[facility] [address] [place], [address] Hematocrit (Bld) [Volume fraction] 32.6 % Low 37-47 [facility] Comment on above: Performed By: #### L 500.2500, L100.0100 ####[facility] [address] [place], [address] Hemoglobin (Bld) [Mass/Vol] 9.9 g/dL Low 12.0-15.0 [facility] Comment on above: Performed By: #### L 500.2500, L100.0100 ####[facility] [address] [place], [address] IG% 0.900 Normal 0.0-0.9 [facility] Comment on above: Result Comment: IG% - Immature Granulocytes (promyelocytes, myelocytes andmetamyelocytes) > 1% indicates that a LEFT SHIFT is Present. Performed By: #### L 500.2500, L100.0100 ####[facility] [address] [place], [address] Lymphocytes/100 WBC (Bld) 7.8 % Low 19-41 [facility] Comment on above: Performed By: #### L 500.2500, L100.0100 ####[facility] [address] [place], [address] MCH (RBC) [Entitic mass] 27.7 pg Normal 27.0-32.0 [facility] Comment on above: Performed By: #### L 500.2500, L100.0100 ####[facility] [address] [place], [address] MCHC (RBC) [Mass/Vol] 30.4 g/dL Low 32-36 [facility] Comment on above: Performed By: #### L 500.2500, L100.0100 ####[facility] [address] [place], [address] MCV (RBC) [Entitic vol] 91.3 fL Normal 81-99 [facility] Comment on above: Performed By: #### L 500.2500, L100.0100 ####[facility] [address] [place], [address] Monocytes/100 WBC (Bld) 5.0 % Normal 0-10 [facility] Comment on above: Performed By: #### L 500.2500, L100.0100 ####[facility] [address] [place], [address] Neutrophils/100 WBC (Bld) 86.1 % High 47-70 [facility] Comment on above: Performed By: #### L 500.2500, L100.0100 ####[facility] [address] [place], [address] Nucleated RBC (Bld) [#/Vol] 0 10*3/uL Normal 0-5 [facility] Comment on above: Performed By: #### L 500.2500, L100.0100 ####[facility] [address] [place], [address] Platelet mean volume (Bld) [Entitic vol] 11.2 fL Normal 6.2-12.0 [facility] Comment on above: Performed By: #### L 500.2500, L100.0100 ####[facility] [address] [place], [address] Platelets (Bld) [#/Vol] 246 10*3/uL Normal 150-450 [facility] Comment on above: Performed By: #### L 500.2500, L100.0100 ####[facility] [address] [place], [address] RBC (Bld) [#/Vol] 3.57 10*6/uL Low 4.2-5.4 [facility] Comment on above: Performed By: #### L 500.2500, L100.0100 ####[facility] [address] [place], [address] RDW SD 51.5 fl High 35.1-43.9 [facility] Comment on above: Performed By: #### L 500.2500, L100.0100 ####[facility] [address] [place], [address] WBC (Bld) [#/Vol] 7.5 10*3/uL Normal 4.4-11.0 [facility] Comment on above: Performed By: #### L 500.2500, L100.0100 ####[facility] [address] [place], [address] Carbon dioxide, total [Moles /volume] in Central venous bloodOrdered By: Heydi Amaya on 02-17-2025 CO2 [Moles/Vol] 23.5 mmol/L 21.0-32.0 [facility] Chloride assayOrdered By: Davy Amaya on 02-17-2025 Chloride [Moles/Vol] 98 mmol/L 98-108 [facility] Electrocardiogram reportOrde red By: Marcelina Soto on 02-17-2025 EKG study [facility] Work Phone: Eosinophil percentageOrdered By: Heydi Amaya on 02-17-2025 Eosinophils/100 WBC (Bld) 0.1 % 0-5 [facility] Erythrocyte distribution wid th ratioOrdered By: Heydi Amaya on 02-17-2025 Erythrocyte distribution width (RBC) [Ratio] 15.6 % High 11.6-14.6 [facility] Erythrocyte distribution wid th standard deviationOrdered By: Heydi Amaya on 02-17-2025 Erythrocyte distribution width (RBC) [Ratio] 51.5 fl High 35.1-43.9 [facility] Glomerular filtration rate ( GFR) estimation/1.73 sq m using serum, plasma, or whole bOrdered By: Heydi Amaya on 02-17-2025 GFR/1.73 sq M.predicted among non-blacks MDRD (S/P/Bld) [Vol rate/Area] 48 mL/min/{1.73_m2} Low >60 [facility]Ordered By: Heydi Amaya on 02-17-2025 Glucose [Mass/Vol] 241 mg/dL High 74-106 [facility] Hematocrit Auto (Bld) [Volum e fraction]Ordered By: Heydi Amaya on 02-17-2025 Hematocrit (Bld) [Volume fraction] 32.6 % Low 37-47 [facility] Hemoglobin measurementOrdere d By: Heydi Amaya on 02-17-2025 Hemoglobin (Bld) [Mass/Vol] 9.9 g/dL Low 12.0-15.0 [facility] Immature granulocytes/100 WB C Auto (Bld)Ordered By: Heydi Amaya on 02-17-2025 Immature granulocytes/100 WBC (Bld) 0.900 % 0.0-0.9 [facility] MCV (mean corpuscular volume ) determinationOrdered By: Heydi Amaya on 02-17-2025 MCV (RBC) [Entitic vol] 91.3 fL 81-99 [facility] Mean corpuscular hemoglobin (MCH) determinationOrdered By: Heydi Amaya on 02-17-2025 MCH (RBC) [Entitic mass] 27.7 pg 27.0-32.0 [facility] Monocyte percentageOrdered B y: Heydi Amaya on 02-17-2025 Monocytes/100 WBC (Bld) 5.0 % 0-10 [facility] Neutrophil percentageOrdered By: Heydi Amaya on 02-17-2025 Neutrophils/100 WBC (Bld) 86.1 % High 47-70 [facility] Platelet countOrdered By: Davy Amaya on 02-17-2025 Platelets (Bld) [#/Vol] 246 10*3/uL 150-450 [facility] Potassium measurement (mass/ volume)Ordered By: Heydi Amaya on 02-17-2025 Potassium (Unsp spec) [Mass/Vol] 5.3 mmol/L High 3.3-5.1 [facility] RBC Auto (Bld) [#/Vol]Ordere d By: Heydi Amaya on 02-17-2025 RBC (Bld) [#/Vol] 3.57 10*6/uL Low 4.2-5.4 [facility] Serum creatinine measurement (mass/volume)Ordered By: Heydi Amaya on 02-17-2025 Creatinine [Mass/Vol] 1.15 mg/dL 0.70-1.20 [facility] Serum glucose measurement (m ass/volume)Ordered By: Heydi Amaya on 02-17-2025 Glucose [Mass/Vol] 426 mg/dL High 70-99 [facility] Serum or plasma calcium melanie urement (mass/volume)Ordered By: Heydi Amaya on 02-17-2025 Calcium [Mass/Vol] 10.3 mg/dL 7.6-11.0 [facility] Serum or plasma urea nitroge n measurement (mass/volume)Ordered By: Heydi Amaya on 02-17-2025 Urea nitrogen [Mass/Vol] 27 mg/dL High 12-17 [facility] Sodium levelOrdered By: Rodolfo Amaya on 02-17-2025 Sodium [Moles/Vol] 134 mmol/L 133-145 [facility] White blood cell (WBC) count Ordered By: Heydi Amaya on 02-17-2025 WBC (Bld) [#/Vol] 7.5 10*3/uL 4.4-11.0 [facility] Basic Metabolic Profile (BMP )on 02-16-2025 BUN/CRE 22.0 RATIO High 06-19 [facility] Comment on above: Performed By: #### L 500.2500, L100.0500 ####[facility] [address] [place], [address] Calcium [Mass/Vol] 10.7 mg/dL Normal 7.6-11.0 [facility] Comment on above: Performed By: #### L 500.2500, L100.0500 ####[facility] [address] [place], [address] Chloride [Moles/Vol] 97 mmol/L Low 98-108 [facility] Comment on above: Performed By: #### L 500.2500, L100.0500 ####[facility] [address] [place], [address] CO2 [Moles/Vol] 29.5 mmol/L Normal 21.0-32.0 [facility] Comment on above: Performed By: #### L 500.2500, L100.0500 ####[facility] [address] [place], [address] Creatinine [Mass/Vol] 0.97 mg/dL Normal 0.70-1.20 [facility] Comment on above: Performed By: #### L 500.2500, L100.0500 ####[facility] [address] [place], [address] ECRCL 44.69 ml/min Low 50-250 [facility] Comment on above: Performed By: #### L 500.2500, L100.0500 ####[facility] [address] [place], [address] GAP 12 Normal 5-15 [facility] Comment on above: Performed By: #### L 500.2500, L100.0500 ####[facility] [address] [place], [address] GFR/1.73 sq M.predicted among non-blacks MDRD (S/P/Bld) [Vol rate/Area] 58 mL/min/{1.73_m2} Low >60 [facility] Comment on above: Result Comment: mL/m in/1.73m2 CKD-EPI Creatinine Equation (2020) Performed By: #### L 500.2500, L100.0500 ####[facility] [address] [place], [address] Glucose [Mass/Vol] 98 mg/dL Normal 70-99 [facility] Comment on above: Performed By: #### L 500.2500, L100.0500 ####[facility] [address] [place], [address] Potassium [Moles/Vol] 4.7 mmol/L Normal 3.3-5.1 [facility] Comment on above: Performed By: #### L 500.2500, L100.0500 ####[facility] [address] [place], [address] Sodium [Moles/Vol] 138 mmol/L Normal 133-145 [facility] Comment on above: Performed By: #### L 500.2500, L100.0500 ####[facility] [address] [place], [address] Urea nitrogen [Mass/Vol] 21 mg/dL High 4-19 [facility] Comment on above: Performed By: #### L 500.2500, L100.0500 ####[facility] [address] [place], [address] Bedside Glucoseon 02-16-2025 FINGERSTICK GLU 254 mg/dL High 74-106 [facility] Comment on above: Result Comment: KATARINA GEMENT OF PATIENT CARE PER NURSING PROTOCOL Performed By: #### L 501.080 ####[facility] [address] [place], [address] FINGERSTICK GLU 234 mg/dL High 74-106 [facility] Comment on above: Result Comment: KATARINA GEMENT OF PATIENT CARE PER NURSING PROTOCOL Performed By: #### L 501.080 ####[facility] [address] [place], [address] FINGERSTICK GLU 91 mg/dL Normal 74-106 [facility] Comment on above: Result Comment: KATARINA GEMENT OF PATIENT CARE PER NURSING PROTOCOL Performed By: #### L 501.080 ####[facility] [address] [place], [address] FINGERSTICK GLU 63 mg/dL Low 74-106 [facility] Comment on above: Result Comment: KATARINA GEMENT OF PATIENT CARE PER NURSING PROTOCOL Performed By: #### L 501.080 ####[facility] [address] [place], [address] CBC-Complete Blood Cnt No Di ffon 02-16-2025 Erythrocyte distribution width (RBC) [Ratio] 16.1 % High 11.6-14.6 [facility] Comment on above: Performed By: #### L 500.2500, L100.0500 ####[facility] [address] [place], [address] Hematocrit (Bld) [Volume fraction] 36.2 % Low 37-47 [facility] Comment on above: Performed By: #### L 500.2500, L100.0500 ####[facility] [address] [place], [address] Hemoglobin (Bld) [Mass/Vol] 11.0 g/dL Low 12.0-15.0 [facility] Comment on above: Performed By: #### L 500.2500, L100.0500 ####[facility] [address] [place], [address] MCH (RBC) [Entitic mass] 27.4 pg Normal 27.0-32.0 [facility] Comment on above: Performed By: #### L 500.2500, L100.0500 ####[facility] [address] [place], [address] MCHC (RBC) [Mass/Vol] 30.4 g/dL Low 32-36 [facility] Comment on above: Performed By: #### L 500.2500, L100.0500 ####[facility] [address] [place], [address] MCV (RBC) [Entitic vol] 90.0 fL Normal 81-99 [facility] Comment on above: Performed By: #### L 500.2500, L100.0500 ####[facility] [address] [place], [address] Platelet mean volume (Bld) [Entitic vol] 11.0 fL Normal 6.2-12.0 [facility] Comment on above: Performed By: #### L 500.2500, L100.0500 ####[facility] [address] [place], [address] Platelets (Bld) [#/Vol] 250 10*3/uL Normal 150-450 [facility] Comment on above: Performed By: #### L 500.2500, L100.0500 ####[facility] [address] [place], [address] RBC (Bld) [#/Vol] 4.02 10*6/uL Low 4.2-5.4 [facility] Comment on above: Performed By: #### L 500.2500, L100.0500 ####[facility] [address] [place], [address] RDW SD 52.3 fl High 35.1-43.9 [facility] Comment on above: Performed By: #### L 500.2500, L100.0500 ####[facility] [address] [place], [address] WBC (Bld) [#/Vol] 9.2 10*3/uL Normal 4.4-11.0 [facility] Comment on above: Performed By: #### L 500.2500, L100.0500 ####[facility] [address] [place], [address] Gram Stainon 02-16-2025 GS Acceptable Specimen? Yes (<25 Epithelial cells per/lpf) Gram Stain Rare Gram positive cocci Rare Gram positive rods No Epithelial cells Rare White Blood Cells Normal [facility] Comment on above: Performed By: #### M 100.2000, M100.2400 ####[facility] [address] [place], [address] Gram stainOrdered By: Ankit Jean-Baptiste on 02-16-2025 Microscopic observation Gram stain Nom (Unsp spec) [facility] Microbial respiratory cultur eOrdered By: Nestor Bartlett on 02-16-2025 Microorganism identified Cx Nom (Unsp spec) or Staphylococcus aureus isolated. [facility] 12 Lead EKGon 02-15-2025 12 Lead EKG Normal [facility] Absolute lymphocyte countOrd ered By: Remus Ungmasood on 02-15-2025 Lymphocytes Auto (Unsp spec) [#/Vol] 0.98 10*3/uL 0.83-4.51 [facility] Anion gap in Serum or Plasma Ordered By: Remus Ungmasood on 02-15-2025 Anion gap [Moles/Vol] 9 mmol/L 5-15 [facility] Automated lymphocyte count a s percentage of total leukocytesOrdered By: Remus Keegan on 02-15-2025 Lymphocytes/100 WBC Auto (Unsp spec) 10.9 % Low 19-41 [facility] BUN/creatinine ratioOrdered By: Remus Srinivasmasood on 02-15-2025 Urea nitrogen/Creatinine [Mass ratio] 23.1 mg/mg High 10- [facility] Basic Metabolic Profile (BMP )on 02-15-2025 BUN/CRE 23.1 RATIO High - [facility] Comment on above: Performed By: #### L 500.2500, L503.7505, L501.4021, L100.0100 ####[facility] [address] [place], [address] Calcium [Mass/Vol] 10.7 mg/dL Normal 7.6-11.0 [facility] Comment on above: Performed By: #### L 500.2500, L503.7505, L501.4021, L100.0100 ####[facility] [address] [place], [address] Chloride [Moles/Vol] 98 mmol/L Normal 98-108 [facility] Comment on above: Performed By: #### L 500.2500, L503.7505, L501.4021, L100.0100 ####[facility] [address] [place], [address] CO2 [Moles/Vol] 30.9 mmol/L Normal 21.0-32.0 [facility] Comment on above: Performed By: #### L 500.2500, L503.7505, L501.4021, L100.0100 ####[facility] [address] [place], [address] Creatinine [Mass/Vol] 1.04 mg/dL Normal 0.70-1.20 [facility] Comment on above: Performed By: #### L 500.2500, L503.7505, L501.4021, L100.0100 ####[facility] [address] [place], [address] ECRCL 41.98 ml/min Low 50-250 [facility] Comment on above: Performed By: #### L 500.2500, L503.7505, L501.4021, L100.0100 ####[facility] [address] [place], [address] GAP 9 Normal 5-15 [facility] Comment on above: Performed By: #### L 500.2500, L503.7505, L501.4021, L100.0100 ####[facility] [address] [place], [address] GFR/1.73 sq M.predicted among non-blacks MDRD (S/P/Bld) [Vol rate/Area] 54 mL/min/{1.73_m2} Low >60 [facility] Comment on above: Result Comment: mL/m in/1.73m2 CKD-EPI Creatinine Equation (2020) Performed By: #### L 500.2500, L503.7505, L501.4021, L100.0100 ####[facility] [address] [place], [address] Glucose [Mass/Vol] 97 mg/dL Normal 70-99 [facility] Comment on above: Performed By: #### L 500.2500, L503.7505, L501.4021, L100.0100 ####[facility] [address] [place], [address] Potassium [Moles/Vol] 4.3 mmol/L Normal 3.3-5.1 [facility] Comment on above: Performed By: #### L 500.2500, L503.7505, L501.4021, L100.0100 ####[facility] [address] [place], [address] Sodium [Moles/Vol] 138 mmol/L Normal 133-145 [facility] Comment on above: Performed By: #### L 500.2500, L503.7505, L501.4021, L100.0100 ####[facility] [address] [place], [address] Urea nitrogen [Mass/Vol] 24 mg/dL High 4-19 [facility] Comment on above: Performed By: #### L 500.2500, L503.7505, L501.4021, L100.0100 ####[facility] [address] [place], [address] Basophil percentageOrdered B y: Remus Ungur on 02-15-2025 Basophils/100 WBC (Bld) 0.1 % 0-1 [facility] Bedside Glucoseon 02-15-2025 FINGERSTICK GLU 152 mg/dL High 74-106 [facility] Comment on above: Result Comment: KATARINA GEMENT OF PATIENT CARE PER NURSING PROTOCOL Performed By: #### L 501.080 ####[facility] [address] [place], [address] FINGERSTICK GLU 80 mg/dL Normal 74-106 [facility] Comment on above: Result Comment: KATARINA GEMENT OF PATIENT CARE PER NURSING PROTOCOL Performed By: #### L 501.080 ####[facility] [address] [place], [address] CBC W/Diff, Automatedon 01-29 Absolute Lymph 0.98 X10 3/uL Normal 0.83-4.51 [facility] Comment on above: Performed By: #### L 500.2500, L503.7505, L501.4021, L100.0100 ####[facility] [address] [place], [address] Absolute Neut 7.5 X10 3/uL Normal 2.0-7.7 [facility] Comment on above: Performed By: #### L 500.2500, L503.7505, L501.4021, L100.0100 ####[facility] [address] [place], [address] Basophils/100 WBC (Bld) 0.1 % Normal 0-1 [facility] Comment on above: Performed By: #### L 500.2500, L503.7505, L501.4021, L100.0100 ####[facility] [address] [place], [address] Eosinophils/100 WBC (Bld) 0.7 % Normal 0-5 [facility] Comment on above: Performed By: #### L 500.2500, L503.7505, L501.4021, L100.0100 ####[facility] [address] [place], [address] Erythrocyte distribution width (RBC) [Ratio] 16.2 % High 11.6-14.6 [facility] Comment on above: Performed By: #### L 500.2500, L503.7505, L501.4021, L100.0100 ####[facility] [address] [place], [address] Hematocrit (Bld) [Volume fraction] 33.5 % Low 37-47 [facility] Comment on above: Performed By: #### L 500.2500, L503.7505, L501.4021, L100.0100 ####[facility] [address] [place], [address] Hemoglobin (Bld) [Mass/Vol] 10.1 g/dL Low 12.0-15.0 [facility] Comment on above: Performed By: #### L 500.2500, L503.7505, L501.4021, L100.0100 ####[facility] [address] [place], [address] IG% 1.000 High 0.0-0.9 [facility] Comment on above: Result Comment: IG% - Immature Granulocytes (promyelocytes, myelocytes andmetamyelocytes) > 1% indicates that a LEFT SHIFT is Present. Performed By: #### L 500.2500, L503.7505, L501.4021, L100.0100 ####[facility] [address] [place], [address] Lymphocytes/100 WBC (Bld) 10.9 % Low 19-41 [facility] Comment on above: Performed By: #### L 500.2500, L503.7505, L501.4021, L100.0100 ####[facility] [address] [place], [address] MCH (RBC) [Entitic mass] 27.0 pg Normal 27.0-32.0 [facility] Comment on above: Performed By: #### L 500.2500, L503.7505, L501.4021, L100.0100 ####[facility] [address] [place], [address] MCHC (RBC) [Mass/Vol] 30.1 g/dL Low 32-36 [facility] Comment on above: Performed By: #### L 500.2500, L503.7505, L501.4021, L100.0100 ####[facility] [address] [place], [address] MCV (RBC) [Entitic vol] 89.6 fL Normal 81-99 [facility] Comment on above: Performed By: #### L 500.2500, L503.7505, L501.4021, L100.0100 ####[facility] [address] [place], [address] Monocytes/100 WBC (Bld) 4.8 % Normal 0-10 [facility] Comment on above: Performed By: #### L 500.2500, L503.7505, L501.4021, L100.0100 ####[facility] [address] [place], [address] Neutrophils/100 WBC (Bld) 82.5 % High 47-70 [facility] Comment on above: Performed By: #### L 500.2500, L503.7505, L501.4021, L100.0100 ####[facility] [address] [place], [address] Nucleated RBC (Bld) [#/Vol] 0 10*3/uL Normal 0-5 [facility] Comment on above: Performed By: #### L 500.2500, L503.7505, L501.4021, L100.0100 ####[facility] [address] [place], [address] Platelet mean volume (Bld) [Entitic vol] 10.4 fL Normal 6.2-12.0 [facility] Comment on above: Performed By: #### L 500.2500, L503.7505, L501.4021, L100.0100 ####[facility] [address] [place], [address] Platelets (Bld) [#/Vol] 243 10*3/uL Normal 150-450 [facility] Comment on above: Performed By: #### L 500.2500, L503.7505, L501.4021, L100.0100 ####[facility] [address] [place], [address] RBC (Bld) [#/Vol] 3.74 10*6/uL Low 4.2-5.4 [facility] Comment on above: Performed By: #### L 500.2500, L503.7505, L501.4021, L100.0100 ####[facility] [address] [place], [address] RDW SD 52.9 fl High 35.1-43.9 [facility] Comment on above: Performed By: #### L 500.2500, L503.7505, L501.4021, L100.0100 ####[facility] [address] [place], [address] WBC (Bld) [#/Vol] 9.0 10*3/uL Normal 4.4-11.0 [facility] Comment on above: Performed By: #### L 500.2500, L503.7505, L501.4021, L100.0100 ####[facility] [address] [place], [address] Carbon dioxide, total [Moles /volume] in Central venous bloodOrdered By: Robert Allison on 02-15-2025 CO2 [Moles/Vol] 30.9 mmol/L 21.0-32.0 [facility] Chest 1 View (Portable)on Chest 1 View (Portable) Normal [facility] Chloride assayOrdered By: Ester Allison on 02-15-2025 Chloride [Moles/Vol] 98 mmol/L 98-108 [facility] Emergency Department Summary on 02-15-2025 Emergency Department Summary Normal [facility] Eosinophil percentageOrdered By: Robert Allison on 02-15-2025 Eosinophils/100 WBC (Bld) 0.7 % 0-5 [facility] Erythrocyte distribution wid th ratioOrdered By: Robert Allison on 02-15-2025 Erythrocyte distribution width (RBC) [Ratio] 16.2 % High 11.6-14.6 [facility] Erythrocyte distribution wid th standard deviationOrdered By: Robert Allison on 02-15-2025 Erythrocyte distribution width (RBC) [Ratio] 52.9 fl High 35.1-43.9 [facility] Glomerular filtration rate ( GFR) estimation/1.73 sq m using serum, plasma, or whole bOrdered By: Robert Allison on 02-15-2025 GFR/1.73 sq M.predicted among non-blacks MDRD (S/P/Bld) [Vol rate/Area] 54 mL/min/{1.73_m2} Low >60 [facility] H AND P Exam - [place] 02-15-2025 H&P Exam - Hospitalist Normal [place] Hematocrit Auto (Bld) [Volum e fraction]Ordered By: Robert Allison on 02-15-2025 Hematocrit (Bld) [Volume fraction] 33.5 % Low 37-47 [facility] Hemoglobin measurementOrdere d By: Robert Allison on 02-15-2025 Hemoglobin (Bld) [Mass/Vol] 10.1 g/dL Low 12.0-15.0 [facility] Immature granulocytes/100 WB C Auto (Bld)Ordered By: [facility] Espinomasood on 02-15-2025 Immature granulocytes/100 WBC (Bld) 1.000 % High 0.0-0.9 [facility] L499.0042on 02-15-2025 Trop T High Sen 113 ng/L Invalid Interpretation Code <=14 [facility] Comment on above: Result Comment: Crit ical Result(s) Called at: 02/15/2025-13:14 by: Pat Smiley.??Results read back by same. Performed By: #### L 499.0042 ####[facility] [address] [facility] [place], [place], [address] L499.0043on 02-15-2025 Trop T High Sen 114 ng/L Invalid Interpretation Code <=14 [facility] Comment on above: Result Comment: Hemo lysis present, Results??could be affected.??CRIT CALLED BY ARCHIE MOE AT 1607Critical Result(s) Called at: by:??Results read back bysail. Performed By: #### L 499.0043 ####[facility] [address] [place], [place], [address] L501.4021on 02-15-2025 Trop T High Sen 117 ng/L Invalid Interpretation Code <=14 [facility] Comment on above: Result Comment: Crit ical Result(s) Called at:02/15/2025-11:47 by: Pat Lopez.??Results read back by same. Performed By: #### L 500.2500, L503.7505, L501.4021, L100.0100 ####[facility] [address] [place], [address] L503.7505on 02-15-2025 Natriuretic peptide B (Bld) [Mass/Vol] 4408 pg/mL High <=1800 [facility] Comment on above: Result Comment: Hear t Failure Unlikely: < 300 pg/mLHeart Failure Likely< 50 Years: > 450 pg/mL50-75 Years: > 900 pg/mL>75 Years: > 1800 pg/mL Performed By: #### L 500.2500, L503.7505, L501.4021, L100.0100 ####[facility] [address] [place], [address] L509.7001on 02-15-2025 Procalcitonin 0.27 ng/mL High <=0.10 [facility] Comment on above: Result Comment: Inte rpretation:<0.10-0.25 ng/mL: Antibiotic therapy discouraged. Bacterialinfection unlikely.0.25-0.50 ng/mL: Antibiotic therapy encouraged. Bacterialinfection possible.>0.50 ng/mL: Antibiotic therapy strongly encouraged.Suggestive of presence of bacterial infection.PCT should always be interpreted in the clinical context ofthe patient. Therefore, clinicians should use the PCTresults in conjunction with other laboratory findings andclinical signs of the patient. Performed By: #### L 509.7001 ####[facility] [address] [place], [address] MCV (mean corpuscular volume ) determinationOrdered By: Remus Ungur on 02-15-2025 MCV (RBC) [Entitic vol] 89.6 fL 81-99 [facility] Mean corpuscular hemoglobin (MCH) determinationOrdered By: Remus Ungur on 02-15-2025 MCH (RBC) [Entitic mass] 27.0 pg 27.0-32.0 [facility] Monocyte percentageOrdered B y: Remus Ungur on 02-15-2025 Monocytes/100 WBC (Bld) 4.8 % 0-10 [facility] Natriuretic peptide.B prohor hayley N-Terminal [Mass/volume] in Serum or PlasmaOrdered By: Robert Allison on 02-15-2025 Natriuretic peptide.B prohormone N-Terminal [Mass/Vol] 4408 pg/mL High <1800 [facility] Neutrophil percentageOrdered By: Robert Allison on 02-15-2025 Neutrophils/100 WBC (Bld) 82.5 % High 47-70 [facility] Platelet countOrdered By: Ester Allison on 02-15-2025 Platelets (Bld) [#/Vol] 243 10*3/uL 150-450 [facility] Potassium measurement (mass/ volume)Ordered By: Robert Allison on 02-15-2025 Potassium (Unsp spec) [Mass/Vol] 4.3 mmol/L 3.3-5.1 [facility] Procalcitonin [Mass/volume] in Serum or Plasma by ImmunoassayOrdered By: Nestor Bartlett on 02-15-2025 Procalcitonin IA [Mass/Vol] 0.27 ng/mL High <0.11 [facility] RBC Auto (Bld) [#/Vol]Ordere d By: Robert Allison on 02-15-2025 RBC (Bld) [#/Vol] 3.74 10*6/uL Low 4.2-5.4 [facility] Serum creatinine measurement (mass/volume)Ordered By: Robert Allison on 02-15-2025 Creatinine [Mass/Vol] 1.04 mg/dL 0.70-1.20 [facility] Serum glucose measurement (m ass/volume)Ordered By: Robert Allison on 02-15-2025 Glucose [Mass/Vol] 97 mg/dL 70-99 [facility] Serum or plasma calcium melanie urement (mass/volume)Ordered By: Robert Allison on 02-15-2025 Calcium [Mass/Vol] 10.7 mg/dL 7.6-11.0 [facility] Serum or plasma urea nitroge n measurement (mass/volume)Ordered By: Robert Allison on 02-15-2025 Urea nitrogen [Mass/Vol] 24 mg/dL High 4-19 [facility] Sodium levelOrdered By: Lorena Allison on 02-15-2025 Sodium [Moles/Vol] 138 mmol/L 133-145 [facility] Troponin T.cardiac [Mass/vol ume] in Serum or Plasma by High sensitivity methodOrdered By: Robert Allison on 02-15-2025 Troponin T.cardiac High sensitivity method [Mass/Vol] 114 ng/L High <14 [facility] Troponin T.cardiac High sensitivity method [Mass/Vol] 113 ng/L High <14 [facility] Troponin T.cardiac High sensitivity method [Mass/Vol] 117 ng/L High <14 [facility] White blood cell (WBC) count Ordered By: Robert Allison on 02-15-2025 WBC (Bld) [#/Vol] 9.0 10*3/uL 4.4-11.0 [facility] Bedside Glucoseon 02-13-2025 FINGERSTICK GLU 337 mg/dL High 74-106 [facility] Comment on above: Result Comment: KATARINA GEMENT OF PATIENT CARE PER NURSING PROTOCOL Performed By: #### L 501.080 ####[facility] [address] [place], [address] FINGERSTICK GLU 302 mg/dL High [address] [place] [address] Comment on above: Result Comment: KATARINA GEMENT OF PATIENT CARE PER NURSING PROTOCOL Performed By: #### L 501.080 ####[facility] [address] [place], [address] Discharge Instructionon 01-29 Discharge Instruction Normal [facility] Gl[facility] at [facility] deOrdered By: Lucio Borden on 02-13-2025 Glucose [Mass/Vol] 337 mg/dL High 74-106 [facility] Bedside Glucoseon 02-12-2025 FINGERSTICK GLU 236 mg/dL High -106 [facility] Comment on above: Result Comment: KATARINA GEMENT OF PATIENT CARE PER NURSING PROTOCOL Performed By: #### L 501.080 ####[facility] [address] [place], [address] FINGERSTICK GLU 112 mg/dL High -106 [facility] Comment on above: Result Comment: KATARINA GEMENT OF PATIENT CARE PER NURSING PROTOCOL Performed By: #### L 501.080 ####[facility] [address] [place], [address] FINGERSTICK GLU 471 mg/dL Invalid Interpretation Code [address] [place] [address] Comment on above: Result Comment: Dr Carina javier FollowedMANAGEMENT OF PATIENT CARE PER NURSING PROTOCOL Performed By: #### L 501.080 ####[facility] [address] [place], [address] FINGERSTICK GLU 492 mg/dL Invalid Interpretation Code [address] [place] [address] Comment on above: Result Comment: Repe at TestMANAGEMENT OF PATIENT CARE PER NURSING PROTOCOL Performed By: #### L 501.080 ####[facility] [address] [place], [address] FINGERSTICK GLU 243 mg/dL High [address] [place] [address] Comment on above: Result Comment: KATARINA GEMENT OF PATIENT CARE PER NURSING PROTOCOL Performed By: #### L 501.080 ####[facility] [address] [place], [address] FINGERSTICK GLU 312 mg/dL High [address] [place] [address] Comment on above: Result Comment: KATARINA GEMENT OF PATIENT CARE PER NURSING PROTOCOL Performed By: #### L 501.080 ####[facility] [address] [place], [address] FINGERSTICK GLU 246 mg/dL High [address] [place] [address] Comment on above: Result Comment: KATARINA GEMENT OF PATIENT CARE PER NURSING PROTOCOL Performed By: #### L 501.080 ####[facility] [address] [place], [address] Bedside Glucoseon 02-11-2025 FINGERSTICK GLU 276 mg/dL High [address] [place] [address] Comment on above: Result Comment: KATARINA GEMENT OF PATIENT CARE PER NURSING PROTOCOL Performed By: #### L 501.080 ####[facility] [address] [place], [address] FINGERSTICK GLU 124 mg/dL High [address] [place] [address] Comment on above: Result Comment: KATARINA GEMENT OF PATIENT CARE PER NURSING PROTOCOL Performed By: #### L 501.080 ####[facility] [address] [place], [address] FINGERSTICK GLU 257 mg/dL High [address] [place] [address] Comment on above: Result Comment: KATARINA GEMENT OF PATIENT CARE PER NURSING PROTOCOL Performed By: #### L 501.080 ####[facility] [address] [place], [address] FINGERSTICK GLU 305 mg/dL High [address] [place] [address] Comment on above: Result Comment: KATARINA GEMENT OF PATIENT CARE PER NURSING PROTOCOL Performed By: #### L 501.080 ####[facility] [address] [place], [address] FINGERSTICK GLU 242 mg/dL High [address] [place] [address] Comment on above: Result Comment: KATARINA GEMENT OF PATIENT CARE PER NURSING PROTOCOL Performed By: #### L 501.080 ####[facility] [address] [place], [address] FINGERSTICK GLU 206 mg/dL High [address] [place] [address] Comment on above: Result Comment: KATARINA GEMENT OF PATIENT CARE PER NURSING PROTOCOL Performed By: #### L 501.080 ####[facility] [address] [place], [address] Anion gap in Serum or Plasma Ordered By: Lucio Borden on 02-10-2025 Anion gap [Moles/Vol] 14 mmol/L 5-15 [facility] BUN/creatinine ratioOrdered By: Lucio Borden on 02-10-2025 Urea nitrogen/Creatinine [Mass ratio] 20.8 mg/mg High 10-20 [facility] Basic Metabolic Profile (BMP )on 02-10-2025 BUN/CRE 20.8 RATIO High 10-20 [facility] Comment on above: Performed By: #### L 500.2500 ####[facility] [address] [place], [address] Calcium [Mass/Vol] 10.0 mg/dL Normal 7.6-11.0 [facility] Comment on above: Performed By: #### L 500.2500 ####[facility] [address] [place], [address] Chloride [Moles/Vol] 98 mmol/L Normal 98-108 [facility] Comment on above: Performed By: #### L 500.2500 ####[facility] [address] [place], [address] CO2 [Moles/Vol] 26.8 mmol/L Normal 21.0-32.0 [facility] Comment on above: Performed By: #### L 500.2500 ####[facility] [address] [place], [address] Creatinine [Mass/Vol] 1.10 mg/dL Normal 0.70-1.20 [facility] Comment on above: Performed By: #### L 500.2500 ####[facility] [address] [place], [address] ECRCL 39.32 ml/min Low 50-250 [facility] Comment on above: Performed By: #### L 500.2500 ####[facility] [address] [place], [address] GAP 14 Normal 5-15 [facility] Comment on above: Performed By: #### L 500.2500 ####[facility] [address] [place], [address] GFR/1.73 sq M.predicted among non-blacks MDRD (S/P/Bld) [Vol rate/Area] 50 mL/min/{1.73_m2} Low >60 [facility] Comment on above: Result Comment: mL/m in/1.73m2 CKD-EPI Creatinine Equation (2020) Performed By: #### L 500.2500 ####[facility] [address] [place], [address] Glucose [Mass/Vol] 361 mg/dL High 70-99 [facility] Comment on above: Performed By: #### L 500.2500 ####[facility] [address] [place], [address] Potassium [Moles/Vol] 4.9 mmol/L Normal 3.3-5.1 [facility] Comment on above: Performed By: #### L 500.2500 ####[facility] [address] [place], [address] Sodium [Moles/Vol] 139 mmol/L Normal 133-145 [facility] Comment on above: Performed By: #### L 500.2500 ####[facility] [address] [place], [address] Urea nitrogen [Mass/Vol] 23 mg/dL High 4-19 [facility] Comment on above: Performed By: #### L 500.2500 ####[facility] [address] [place], [address] Bedside Glucoseon 02-10-2025 FINGERSTICK GLU 167 mg/dL High 74-106 [facility] Comment on above: Result Comment: KATARINA GEMENT OF PATIENT CARE PER NURSING PROTOCOL Performed By: #### L 501.080 ####[facility] [address] [place], [address] FINGERSTICK GLU 78 mg/dL Normal 74-106 [facility] Comment on above: Result Comment: KATARINA GEMENT OF PATIENT CARE PER NURSING PROTOCOL Performed By: #### L 501.080 ####[facility] [address] [place], [address] FINGERSTICK GLU 64 mg/dL Low 74-106 [facility] Comment on above: Result Comment: KATARINA GEMENT OF PATIENT CARE PER NURSING PROTOCOL Performed By: #### L 501.080 ####[facility] [address] [place], [address] FINGERSTICK GLU 222 mg/dL High 74-106 [facility] Comment on above: Result Comment: KATARINA GEMENT OF PATIENT CARE PER NURSING PROTOCOL Performed By: #### L 501.080 ####[facility] [address] [place], [address] Carbon dioxide, total [Moles /volume] in Central venous bloodOrdered By: Lucio Borden on 02-10-2025 CO2 [Moles/Vol] 26.8 mmol/L 21.0-32.0 [facility] Chloride assayOrdered By: Chen Borden on 02-10-2025 Chloride [Moles/Vol] 98 mmol/L 98-108 [facility] Glomerular filtration rate ( GFR) estimation/1.73 sq m using serum, plasma, or whole bOrdered By: Lucio Borden on 02-10-2025 GFR/1.73 sq M.predicted among non-blacks MDRD (S/P/Bld) [Vol rate/Area] 50 mL/min/{1.73_m2} Low >60 [facility] Potassium measurement (mass/ volume)Ordered By: Lucio Borden on 02-10-2025 Potassium (Unsp spec) [Mass/Vol] 4.9 mmol/L 3.3-5.1 [facility] RESPIRATORY PANEL MOLECULARo n 02-10-2025 RP PANEL Normal [facility] Comment on above: Performed By: #### M 100.638 ####[facility] [address] [place], [address] Serum creatinine measurement (mass/volume)Ordered By: Lucio Borden on 02-10-2025 Creatinine [Mass/Vol] 1.10 mg/dL 0.70-1.20 [facility] Serum glucose measurement (m ass/volume)Ordered By: Lucio Borden on 02-10-2025 Glucose [Mass/Vol] 361 mg/dL High 70-99 [facility] Serum or plasma calcium melanie urement (mass/volume)Ordered By: Lucio Borden on 02-10-2025 Calcium [Mass/Vol] 10.0 mg/dL 7.6-11.0 [facility] Serum or plasma urea nitroge n measurement (mass/volume)Ordered By: Lucio Borden on 02-10-2025 Urea nitrogen [Mass/Vol] 23 mg/dL High 4-19 [facility] Sodium levelOrdered By: Lucio Borden on 02-10-2025 Sodium [Moles/Vol] 139 mmol/L 133-145 [facility] Absolute lymphocyte countOrd ered By: Jeremiah Corrales on 02-09-2025 Lymphocytes Auto (Unsp spec) [#/Vol] 0.69 10*3/uL Low 0.83-4.51 [facility] Anion gap in Serum or Plasma Ordered By: Jeremiah Corrales on 02-09-2025 Anion gap [Moles/Vol] 12 mmol/L 5-15 [facility] Automated lymphocyte count a s percentage of total leukocytesOrdered By: Jeremiah Corrales on 02-09-2025 Lymphocytes/100 WBC Auto (Unsp spec) 7.3 % Low 19-41 [facility] BUN/creatinine ratioOrdered By: Jeremiah Corrales on 02-09-2025 Urea nitrogen/Creatinine [Mass ratio] 20.2 mg/mg High 10-20 [facility] Basic Metabolic Profile (BMP )on 02-09-2025 BUN/CRE 20.2 RATIO High 10-20 [facility] Comment on above: Performed By: #### L 100.0100, L501.4021, L500.2500 ####[facility] [address] [place], [address] Calcium [Mass/Vol] 10.2 mg/dL Normal 7.6-11.0 [facility] Comment on above: Performed By: #### L 100.0100, L501.4021, L500.2500 ####[facility] [address] [place], [address] Chloride [Moles/Vol] 98 mmol/L Normal 98-108 [facility] Comment on above: Performed By: #### L 100.0100, L501.4021, L500.2500 ####[facility] [address] [place], [address] CO2 [Moles/Vol] 29.9 mmol/L Normal 21.0-32.0 [facility] Comment on above: Performed By: #### L 100.0100, L501.4021, L500.2500 ####[facility] [address] [place], [address] Creatinine [Mass/Vol] 1.16 mg/dL Normal 0.70-1.20 [facility] Comment on above: Performed By: #### L 100.0100, L501.4021, L500.2500 ####[facility] [address] [place], [address] ECRCL 37.42 ml/min Low 50-250 [facility] Comment on above: Performed By: #### L 100.0100, L501.4021, L500.2500 ####[facility] [address] [place], [address] GAP 12 Normal 5-15 [facility] Comment on above: Performed By: #### L 100.0100, L501.4021, L500.2500 ####[facility] [address] [place], [address] GFR/1.73 sq M.predicted among non-blacks MDRD (S/P/Bld) [Vol rate/Area] 47 mL/min/{1.73_m2} Low >60 [facility] Comment on above: Result Comment: mL/m in/1.73m2 CKD-EPI Creatinine Equation (2020) Performed By: #### L 100.0100, L501.4021, L500.2500 ####[facility] [address] [place], [address] Glucose [Mass/Vol] 173 mg/dL High 70-99 [facility] Comment on above: Performed By: #### L 100.0100, L501.4021, L500.2500 ####[facility] [address] [place], [address] Potassium [Moles/Vol] 4.3 mmol/L Normal 3.3-5.1 [facility] Comment on above: Performed By: #### L 100.0100, L501.4021, L500.2500 ####[facility] [address] [place], [address] Sodium [Moles/Vol] 140 mmol/L Normal 133-145 [facility] Comment on above: Performed By: #### L 100.0100, L501.4021, L500.2500 ####[facility] [address] [place], [address] Urea nitrogen [Mass/Vol] 23 mg/dL High 4-19 [facility] Comment on above: Performed By: #### L 100.0100, L501.4021, L500.2500 ####[facility] [address] [place], [address] Basophil percentageOrdered B y: Jeremiah Corrales on 02-09-2025 Basophils/100 WBC (Bld) 0.4 % 0-1 [facility] Bedside Glucoseon 02-09-2025 FINGERSTICK GLU 401 mg/dL High 74-106 [facility] Comment on above: Result Comment: KATARINA GEMENT OF PATIENT CARE PER NURSING PROTOCOL Performed By: #### L 501.080 ####[facility] [address] [place], [address] FINGERSTICK GLU 248 mg/dL High 74-106 [facility] Comment on above: Result Comment: KATARINA GEMENT OF PATIENT CARE PER NURSING PROTOCOL Performed By: #### L 501.080 ####[facility] [address] [place], [address] CBC W/Diff, Automatedon 01-29 PLT EST ADEQUATE Normal ADEQ [facility] Comment on above: Performed By: #### L 100.0100, L501.4021, L500.2500 ####[facility] [address] [place], [address] Carbon dioxide, total [Moles /volume] in Central venous bloodOrdered By: Jeremiah Corrales on 02-09-2025 CO2 [Moles/Vol] 29.9 mmol/L 21.0-32.0 [facility] Chest PA and Lateralon 02-09 Chest PA and Lateral Normal [facility] Chloride assayOrdered By: Eino Corrales on 02-09-2025 Chloride [Moles/Vol] 98 mmol/L 98-108 [facility] Emergency Department Summary on 02-09-2025 Emergency Department Summary Normal [facility] Eosinophil percentageOrdered By: Jeremiah Corrales on 02-09-2025 Eosinophils/100 WBC (Bld) 0.1 % 0-5 [facility] Erythrocyte distribution wid th ratioOrdered By: Jeremiah Corrales on 02-09-2025 Erythrocyte distribution width (RBC) [Ratio] 15.8 % High 11.6-14.6 [facility] Erythrocyte distribution wid th standard deviationOrdered By: Jeremiah Corrales on 02-09-2025 Erythrocyte distribution width (RBC) [Ratio] 51.3 fl High 35.1-43.9 [facility] Glomerular filtration rate ( GFR) estimation/1.73 sq m using serum, plasma, or whole bOrdered By: Jeremiah Corrales on 02-09-2025 GFR/1.73 sq M.predicted among non-blacks MDRD (S/P/Bld) [Vol rate/Area] 47 mL/min/{1.73_m2} Low >60 [facility] H AND P Exam - Hospital[place] 02-09-2025 H&P Exam - Hospitalist Normal [place] Hematocrit Auto (Bld) [Volum e fraction]Ordered By: Jeremiah Corrales on 02-09-2025 Hematocrit (Bld) [Volume fraction] 37.9 % 37-47 [facility] Hemoglobin measurementOrdere d By: Jeremiah Corrales on 02-09-2025 Hemoglobin (Bld) [Mass/Vol] 11.5 g/dL Low 12.0-15.0 [facility] Immature granulocytes/100 WB C Auto (Bld)Ordered By: Jeremiah Corrales on 02-09-2025 Immature granulocytes/100 WBC (Bld) 0.800 % 0.0-0.9 [facility] L499.0042on 02-09-2025 Trop T High Sen 119 ng/L Invalid Interpretation Code <=14 [facility] Comment on above: Result Comment: Crit ical Result(s) Called VANE GRAVES at: 1520 by:VIET??Results read back by same. Performed By: #### L 499.0042 ####[facility] [address] [place], [place], [id number] L501.4021on 02-09-2025 Trop T High Sen 122 ng/L Invalid Interpretation Code <=14 [facility] Comment on above: Result Comment: Crit ical Result(s) Called at 1330: by: SHARONA ROWELL. ??Results read back by same. Performed By: #### L 100.0100, L501.4021, L500.2500 ####[facility] [address] [place], [place], [address] L503.7505on 02-09-2025 Natriuretic peptide B (Bld) [Mass/Vol] 9616 pg/mL High <=1800 [facility] Comment on above: Result Comment: Hear t Failure Unlikely: < 300 pg/mLHeart Failure Likely< 50 Years: > 450 pg/mL50-75 Years: > 900 pg/mL>75 Years: > 1800 pg/mL Performed By: #### L 503.7505 ####[facility] [address] [place], [place], [address] MCV (mean corpuscular volume ) determinationOrdered By: Jeremiah Corrales on 02-09-2025 MCV (RBC) [Entitic vol] 89.8 fL 81-99 [facility] Mean corpuscular hemoglobin (MCH) determinationOrdered By: Jeremiah Corrales on 02-09-2025 MCH (RBC) [Entitic mass] 27.3 pg 27.0-32.0 [facility] Monocyte percentageOrdered B y: Jeremiah Corrales on 02-09-2025 Monocytes/100 WBC (Bld) 4.5 % 0-10 [facility] Natriuretic peptide.B prohor hayley N-Terminal [Mass/volume] in Serum or PlasmaOrdered By: Jeremiah Corrales on 02-09-2025 Natriuretic peptide.B prohormone N-Terminal [Mass/Vol] 9616 pg/mL High <1800 [facility] Neutrophil percentageOrdered By: Jeremiah Corrales on 02-09-2025 Neutrophils/100 WBC (Bld) 86.9 % High 47-70 [facility] Platelet countOrdered By: Enio Corrales on 02-09-2025 Platelet count TNP [facility] Platelet estimateOrdered By: Jeremiah Corrales on 02-09-2025 Platelets LM Ql (Bld) ADEQUATE ADEQ [facility] Potassium measurement (mass/ volume)Ordered By: Jeremiah Corrales on 02-09-2025 Potassium (Unsp spec) [Mass/Vol] 4.3 mmol/L 3.3-5.1 [facility] RBC Auto (Bld) [#/Vol]Ordere d By: Jeremiah Corrales on 02-09-2025 RBC (Bld) [#/Vol] 4.22 10*6/uL 4.2-5.4 [facility] Respiratory pathogens detect ion panel by molecular detection methodOrdered By: Tono Gomez on 02-09-2025 Respiratory pathogens DNA and RNA panel BEBETO+probe (Resp) Parainfluenza 3 Abnormal [facility] Serum creatinine measurement (mass/volume)Ordered By: Jeremiah Corrales on 02-09-2025 Creatinine [Mass/Vol] 1.16 mg/dL 0.70-1.20 [facility] Serum glucose measurement (m ass/volume)Ordered By: Jeremiah Corrales on 02-09-2025 Glucose [Mass/Vol] 173 mg/dL High 70-99 [facility] Serum or plasma calcium melanie urement (mass/volume)Ordered By: Jeremiha Corrales on 02-09-2025 Calcium [Mass/Vol] 10.2 mg/dL 7.6-11.0 [facility] Serum or plasma urea nitroge n measurement (mass/volume)Ordered By: Jeremiah Corrales on 02-09-2025 Urea nitrogen [Mass/Vol] 23 mg/dL High 4-19 [facility] Sodium levelOrdered By: Jeremiah Corrales on 02-09-2025 Sodium [Moles/Vol] 140 mmol/L 133-145 [facility] Troponin T.cardiac [Mass/vol ume] in Serum or Plasma by High sensitivity methodOrdered By: Jeremiah Corrales on 02-09-2025 Troponin T.cardiac High sensitivity method [Mass/Vol] 119 ng/L High <14 [facility] Troponin T.cardiac High sensitivity method [Mass/Vol] 122 ng/L High <14 [facility] White blood cell (WBC) count Ordered By: Jeremiah Corrales on 02-09-2025 WBC (Bld) [#/Vol] 9.4 10*3/uL 4.4-11.0 [facility] Absolute lymphocyte countOrd ered By: Ramone Smiley on 02-07-2025 Lymphocytes Auto (Unsp spec) [#/Vol] 0.84 10*3/uL 0.83-4.51 [facility] Anion gap in Serum or Plasma Ordered By: Ramone Smiley on 02-07-2025 Anion gap [Moles/Vol] 12 mmol/L 5-15 [facility] Automated lymphocyte count a s percentage of total leukocytesOrdered By: Ramone Smiley on 02-07-2025 Lymphocytes/100 WBC Auto (Unsp spec) 7.3 % Low 19-41 [facility] BUN/creatinine ratioOrdered By: Ramone Smiley on 02-07-2025 Urea nitrogen/Creatinine [Mass ratio] 17.7 mg/mg 10-20 [facility] Basophil percentageOrdered B y: Ramone Smiley on 02-07-2025 Basophils/100 WBC (Bld) 0.1 % 0- [facility] Bilirubin, totalOrdered By: Ramone Smiley on 02-07-2025 Bilirubin [Mass/Vol] 0.25 mg/dL 0.00-1.30 [facility] CBC W/Diff, Automatedon 01-29 Absolute Lymph 0.84 X10 3/uL Normal 0.83-4.51 [facility] Comment on above: Order Comment: Order Date: 02/07/25Order Info: 0184-1 - CBCD Performed By: #### L 100.0100, L500.4050 ####[facility] [address] [place], [address] Absolute Neut 10.0 X10 3/uL High 2.0-7.7 [facility] Comment on above: Order Comment: Order Date: 02/07/25Order Info: 0184-1 - CBCD Performed By: #### L 100.0100, L500.4050 ####[facility] [address] [place], [address] Basophils/100 WBC (Bld) 0.1 % Normal 0-1 [facility] Comment on above: Order Comment: Order Date: 02/07/25Order Info: 0184-1 - CBCD Performed By: #### L 100.0100, L500.4050 ####[facility] [address] [place], [address] Eosinophils/100 WBC (Bld) 0.0 % Normal 0-5 [facility] Comment on above: Order Comment: Order Date: 02/07/25Order Info: 0184-1 - CBCD Performed By: #### L 100.0100, L500.4050 ####[facility] [address] [place], [address] Erythrocyte distribution width (RBC) [Ratio] 15.7 % High 11.6-14.6 [facility] Comment on above: Order Comment: Order Date: 02/07/25Order Info: 0184-1 - CBCD Performed By: #### L 100.0100, L500.4050 ####[facility] [address] [place], [address] Hematocrit (Bld) [Volume fraction] 36.8 % Low 37-47 [facility] Comment on above: Order Comment: Order Date: 02/07/25Order Info: 018-1 - CBCD Performed By: #### L 100.0100, L500.4050 ####[facility] [address] [place], [address] Hemoglobin (Bld) [Mass/Vol] 11.4 g/dL Low 12.0-15.0 [facility] Comment on above: Order Comment: Order Date: 02/07/25Order Info: 018-1 - CBCD Performed By: #### L 100.0100, L500.4050 ####[facility] [address] [place], [address] IG% 0.400 Normal 0.0-0.9 [facility] Comment on above: Order Comment: Order Date: 02/07/25Order Info: 018- - CBCD Result Comment: IG% - Immature Granulocytes (promyelocytes, myelocytes andmetamyelocytes) > 1% indicates that a LEFT SHIFT is Present. Performed By: #### L 100.0100, L500.4050 ####[facility] [address] [place], [address] Lymphocytes/100 WBC (Bld) 7.3 % Low 19-41 [facility] Comment on above: Order Comment: Order Date: 02/07/25Order Info: 018-1 - CBCD Performed By: #### L 100.0100, L500.4050 ####[facility] [address] [place], [address] MCH (RBC) [Entitic mass] 27.9 pg Normal 27.0-32.0 [facility] Comment on above: Order Comment: Order Date: 02/07/25Order Info: 018- - CBCD Performed By: #### L 100.0100, L500.4050 ####[facility] [address] [place], [address] MCHC (RBC) [Mass/Vol] 31.0 g/dL Low 32-36 [facility] Comment on above: Order Comment: Order Date: 02/07/25Order Info: 0184-1 - CBCD Performed By: #### L 100.0100, L500.4050 ####[facility] [address] [place], [address] MCV (RBC) [Entitic vol] 90.2 fL Normal 81-99 [facility] Comment on above: Order Comment: Order Date: 02/07/25Order Info: 0184-1 - CBCD Performed By: #### L 100.0100, L500.4050 ####[facility] [address] [place], [address] Monocytes/100 WBC (Bld) 5.2 % Normal 0-10 [facility] Comment on above: Order Comment: Order Date: 02/07/25Order Info: 0184-1 - CBCD Performed By: #### L 100.0100, L500.4050 ####[facility] [address] [place], [address] Neutrophils/100 WBC (Bld) 87.0 % High 47-70 [facility] Comment on above: Order Comment: Order Date: 02/07/25Order Info: 0184-1 - CBCD Performed By: #### L 100.0100, L500.4050 ####[facility] [address] [place], [address] Nucleated RBC (Bld) [#/Vol] 0 10*3/uL Normal 0-5 [facility] Comment on above: Order Comment: Order Date: 02/07/25Order Info: 0184-1 - CBCD Performed By: #### L 100.0100, L500.4050 ####[facility] [address] [place], [address] Platelet mean volume (Bld) [Entitic vol] 11.5 fL Normal 6.2-12.0 [facility] Comment on above: Order Comment: Order Date: 02/07/25Order Info: 0184-1 - CBCD Performed By: #### L 100.0100, L500.4050 ####[facility] [address] [place], [address] Platelets (Bld) [#/Vol] 247 10*3/uL Normal 150-450 [facility] Comment on above: Order Comment: Order Date: 02/07/25Order Info: 0184-1 - CBCD Performed By: #### L 100.0100, L500.4050 ####[facility] [address] [place], [address] RBC (Bld) [#/Vol] 4.08 10*6/uL Low 4.2-5.4 [facility] Comment on above: Order Comment: Order Date: 02/07/25Order Info: 0184-1 - CBCD Performed By: #### L 100.0100, L500.4050 ####[facility] [address] [place], [address] RDW SD 51.8 fl High 35.1-43.9 [facility] Comment on above: Order Comment: Order Date: 02/07/25Order Info: 0184-1 - CBCD Performed By: #### L 100.0100, L500.4050 ####[facility] [address] [place], [address] WBC (Bld) [#/Vol] 11.5 10*3/uL High 4.4-11.0 [facility] Comment on above: Order Comment: Order Date: 02/07/25Order Info: 0184-1 - CBCD Performed By: #### L 100.0100, L500.4050 ####[facility] [address] [place], [address] Carbon dioxide, total [Moles /volume] in Central venous bloodOrdered By: Ramone Smiley on 06-10-2025 CO2 [Moles/Vol] 27.9 mmol/L 21.0-32.0 [facility] Chloride assayOrdered By: Richar Smiley on 02-07-2025 Chloride [Moles/Vol] 96 mmol/L Low 98-108 [facility] Comprehensive Metabolic Prof ilon 02-07-2025 Albumin [Mass/Vol] 3.3 g/dL Low 3.4-4.8 [facility] Comment on above: Order Comment: URINE UTOOrder Date: 02/07/25Order Info: 0786-1 - CMP Performed By: #### L 100.0100, L500.4050 ####[facility] [address] [place], [address] Albumin/Globulin [Mass ratio] 1.0 {ratio} Normal 0.9-2.4 [facility] Comment on above: Order Comment: URINE UTOOrder Date: 02/07/25Order Info: 0786-1 - CMP Performed By: #### L 100.0100, L500.4050 ####[facility] [address] [place], [address] ALK PHOS 86 U/L Normal 35-104 [facility] Comment on above: Order Comment: URINE UTOOrder Date: 02/07/25Order Info: 0786-1 - CMP Performed By: #### L 100.0100, L500.4050 ####[facility] [address] [place], [address] ALT [Catalytic activity/Vol] 20 U/L Normal <=34 [facility] Comment on above: Order Comment: URINE UTOOrder Date: 02/07/25Order Info: 0786-1 - CMP Performed By: #### L 100.0100, L500.4050 ####[facility] [address] [place], [address] AST [Catalytic activity/Vol] 29 U/L Normal <=31 [facility] Comment on above: Order Comment: URINE UTOOrder Date: 02/07/25Order Info: 0786-1 - CMP Performed By: #### L 100.0100, L500.4050 ####[facility] [address] [place], [address] Bilirubin [Mass/Vol] 0.25 mg/dL Normal 0.00-1.30 [facility] Comment on above: Order Comment: URINE UTOOrder Date: 02/07/25Order Info: 0786-1 - CMP Performed By: #### L 100.0100, L500.4050 ####[facility] [address] [place], [address] BUN/CRE 17.7 RATIO Normal 10-20 [facility] Comment on above: Order Comment: URINE UTOOrder Date: 02/07/25Order Info: 0786-1 - CMP Performed By: #### L 100.0100, L500.4050 ####[facility] [address] [place], [address] Calcium [Mass/Vol] 10.2 mg/dL Normal 7.6-11.0 [facility] Comment on above: Order Comment: URINE UTOOrder Date: 02/07/25Order Info: 0786-1 - CMP Performed By: #### L 100.0100, L500.4050 ####[facility] [address] [place], [address] Chloride [Moles/Vol] 96 mmol/L Low 98-108 [facility] Comment on above: Order Comment: URINE UTOOrder Date: 02/07/25Order Info: 0786-1 - CMP Performed By: #### L 100.0100, L500.4050 ####[facility] [address] [place], [address] CO2 [Moles/Vol] 27.9 mmol/L Normal 21.0-32.0 [facility] Comment on above: Order Comment: URINE UTOOrder Date: 02/07/25Order Info: 0786-1 - CMP Performed By: #### L 100.0100, L500.4050 ####[facility] [address] [place], [address] Creatinine [Mass/Vol] 1.37 mg/dL High 0.70-1.20 [facility] Comment on above: Order Comment: URINE UTOOrder Date: 02/07/25Order Info: 0786-1 - CMP Performed By: #### L 100.0100, L500.4050 ####[facility] [address] [place], [address] GAP 12 Normal 5-15 [facility] Comment on above: Order Comment: URINE UTOOrder Date: 02/07/25Order Info: 0786-1 - CMP Performed By: #### L 100.0100, L500.4050 ####[facility] [address] [place], [address] GFR/1.73 sq M.predicted among non-blacks MDRD (S/P/Bld) [Vol rate/Area] 39 mL/min/{1.73_m2} Low >60 [facility] Comment on above: Order Comment: URINE UTOOrder Date: 02/07/25Order Info: 0786-1 - CMP Result Comment: mL/m in/1.73m2 CKD-EPI Creatinine Equation (2020) Performed By: #### L 100.0100, L500.4050 ####[facility] [address] [place], [address] Globulin (S) [Mass/Vol] 3.2 g/dL Normal 2.2-4.2 [facility] Comment on above: Order Comment: URINE UTOOrder Date: 02/07/25Order Info: 0786-1 - CMP Performed By: #### L 100.0100, L500.4050 ####[facility] [address] [place], [address] Glucose [Mass/Vol] 254 mg/dL High 70-99 [facility] Comment on above: Order Comment: URINE UTOOrder Date: 02/07/25Order Info: 785-1 - CMP Performed By: #### L 100.0100, L500.4050 ####[facility] [address] [place], [address] Potassium [Moles/Vol] 5.1 mmol/L Normal 3.3-5.1 [facility] Comment on above: Order Comment: URINE UTOOrder Date: 02/07/25Order Info: 785-1 - CMP Performed By: #### L 100.0100, L500.4050 ####[facility] [address] [place], [address] Sodium [Moles/Vol] 136 mmol/L Normal 133-145 [facility] Comment on above: Order Comment: URINE UTOOrder Date: 02/07/25Order Info: 785-1 - CMP Performed By: #### L 100.0100, L500.4050 ####[facility] [address] [place], [address] T PROT 6.5 g/dL Normal 5.9-8.4 [facility] Comment on above: Order Comment: URINE UTOOrder Date: 02/07/25Order Info: 785-1 - CMP Performed By: #### L 100.0100, L500.4050 ####[facility] [address] [place], [address] Urea nitrogen [Mass/Vol] 24 mg/dL High 4-19 [facility] Comment on above: Order Comment: URINE UTOOrder Date: 02/07/25Order Info: 86-1 - CMP Performed By: #### L 100.0100, L500.4050 ####[facility] [address] [place], [address] Eosinophil percentageOrdered By: Ramone Smiley on 02-07-2025 Eosinophils/100 WBC (Bld) 0.0 % 0-5 [facility] Erythrocyte distribution wid th ratioOrdered By: Ramone Smiley on 02-07-2025 Erythrocyte distribution width (RBC) [Ratio] 15.7 % High 11.6-14.6 [facility] Erythrocyte distribution wid th standard deviationOrdered By: Ramone Smiley on 02-07-2025 Erythrocyte distribution width (RBC) [Ratio] 51.8 fl High 35.1-43.9 [facility] Glomerular filtration rate ( GFR) estimation/1.73 sq m using serum, plasma, or whole bOrdered By: Ramone Smiley on 02-07-2025 GFR/1.73 sq M.predicted among non-blacks MDRD (S/P/Bld) [Vol rate/Area] 39 mL/min/{1.73_m2} Low >60 [facility] Hematocrit Auto (Bld) [Volum e fraction]Ordered By: Ramone Smiley on 02-07-2025 Hematocrit (Bld) [Volume fraction] 36.8 % Low 37-47 [facility] Hemoglobin measurementOrdere d By: Ramone Smiley on 02-07-2025 Hemoglobin (Bld) [Mass/Vol] 11.4 g/dL Low 12.0-15.0 [facility] Immature granulocytes/100 WB C Auto (Bld)Ordered By: Ramone Smiley on 02-07-2025 Immature granulocytes/100 WBC (Bld) 0.400 % 0.0-0.9 [facility] MCV (mean corpuscular volume ) determinationOrdered By: Ramone Smiley on 02-07-2025 MCV (RBC) [Entitic vol] 90.2 fL 81-99 [facility] Mean corpuscular hemoglobin (MCH) determinationOrdered By: Ramone Smiley on 02-07-2025 MCH (RBC) [Entitic mass] 27.9 pg 27.0-32.0 [facility] Monocyte percentageOrdered B y: Ramone Smiley on 02-07-2025 Monocytes/100 WBC (Bld) 5.2 % 0-10 [facility] Neutrophil percentageOrdered By: Ramone Smiley on 02-07-2025 Neutrophils/100 WBC (Bld) 87.0 % High 47-70 [facility] No Panel InformationOrdered By: Ramone Smiley on 02-07-2025 29 U/L <32 [facility] Platelet countOrdered By: Richar Smiley on 02-07-2025 Platelets (Bld) [#/Vol] 247 10*3/uL 150-450 [facility] Potassium measurement (mass/ volume)Ordered By: Ramone Smiley on 02-07-2025 Potassium (Unsp spec) [Mass/Vol] 5.1 mmol/L 3.3-5.1 [facility] RBC Auto (Bld) [#/Vol]Ordere d By: Ramone Smiley on 02-07-2025 RBC (Bld) [#/Vol] 4.08 10*6/uL Low 4.2-5.4 [facility] Serum creatinine measurement (mass/volume)Ordered By: Ramone Smiley on 02-07-2025 Creatinine [Mass/Vol] 1.37 mg/dL High 0.70-1.20 [facility] Serum globulin measurementOr dered By: Ramone Smiley on 02-07-2025 Globulin (S) [Mass/Vol] 3.2 g/dL 2.2-4.2 [facility] Serum glucose measurement (m ass/volume)Ordered By: Ramone Smiley on 02-07-2025 Glucose [Mass/Vol] 254 mg/dL High 70-99 [facility] Serum or plasma alanine kelley otransferase (ALT) measurementOrdered By: Ramone Smiley on 02-07-2025 ALT [Catalytic activity/Vol] 20 U/L <35 [facility] Serum or plasma albumin melanie urement (mass/volume)Ordered By: Ramone Smiley on 02-07-2025 Albumin [Mass/Vol] 3.3 g/dL Low 3.4-4.8 [facility] Serum or plasma albumin/glob ulin mass ratioOrdered By: Ramone Smiley on 02-07-2025 Albumin/Globulin [Mass ratio] 1.0 {ratio} 0.9-2.4 [facility] Serum or plasma alkaline lissa sphatase measurementOrdered By: Ramone Smiley on 02-07-2025 ALP [Catalytic activity/Vol] 86 U/L 35-104 [facility] Serum or plasma calcium melanie urement (mass/volume)Ordered By: Ramone Smiley on 02-07-2025 Calcium [Mass/Vol] 10.2 mg/dL 7.6-11.0 [facility] Serum or plasma urea nitroge n measurement (mass/volume)Ordered By: Ramone Smiley on 02-07-2025 Urea nitrogen [Mass/Vol] 24 mg/dL High 4-19 [facility] Sodium levelOrdered By: Ramone Smiley on 02-07-2025 Sodium [Moles/Vol] 136 mmol/L 133-145 [facility] Total proteinOrdered By: Lilliam Smiley on 02-07-2025 Protein [Mass/Vol] 6.5 g/dL 5.9-8.4 [facility] White blood cell (WBC) count Ordered By: Ramone Smiley on 02-07-2025 WBC (Bld) [#/Vol] 11.5 10*3/uL High 4.4-11.0 [facility] Bedside Glucoseon 02-06-2025 FINGERSTICK GLU 190 mg/dL High 74-106 [facility] Comment on above: Result Comment: KATARINA GEMENT OF PATIENT CARE PER NURSING PROTOCOL Performed By: #### L 501.080 ####[facility] [address] [place], [address] FINGERSTICK GLU 237 mg/dL High 74-106 [facility] Comment on above: Result Comment: KATARINA GEMENT OF PATIENT CARE PER NURSING PROTOCOL Performed By: #### L 501.080 ####[facility] [address] [place], [place], [address] Discharge Instructionon Discharge Instruction Normal [facility] Electrocardiogram reportOrde red By: Marcelina Soto on 02-06-2025 EKG study [facility] Work Phone: [facility] deOrdered By: Lucio Borden on 02-06-2025 Glucose [Mass/Vol] 190 mg/dL High 74-106 [facility] Anion gap in Serum or Plasma Ordered By: Lucio Borden on 02-05-2025 Anion gap [Moles/Vol] 15 mmol/L 5-15 [facility] BUN/creatinine ratioOrdered By: Lucio Borden on 02-05-2025 Urea nitrogen/Creatinine [Mass ratio] 16.1 mg/mg 10-20 [facility] Basic Metabolic Profile (BMP )on 02-05-2025 BUN/CRE 16.1 RATIO Normal -20 [facility] Comment on above: Performed By: #### L 500.2500 ####[facility] [address] [place], [address] Calcium [Mass/Vol] 9.1 mg/dL Normal 7.6-11.0 [facility] Comment on above: Performed By: #### L 500.2500 ####[facility] [address] [place], [address] Chloride [Moles/Vol] 94 mmol/L Low 98-108 [facility] Comment on above: Performed By: #### L 500.2500 ####[facility] [address] [place], [address] CO2 [Moles/Vol] 26.4 mmol/L Normal 21.0-32.0 [facility] Comment on above: Performed By: #### L 500.2500 ####[facility] [address] [place], [address] Creatinine [Mass/Vol] 1.06 mg/dL Normal 0.70-1.20 [facility] Comment on above: Performed By: #### L 500.2500 ####[facility] [address] [place], [address] ECRCL 39.38 ml/min Low 50-250 [facility] Comment on above: Performed By: #### L 500.2500 ####[facility] [address] [place], [address] GAP 15 Normal 5-15 [facility] Comment on above: Performed By: #### L 500.2500 ####[facility] [address] [place], [address] GFR/1.73 sq M.predicted among non-blacks MDRD (S/P/Bld) [Vol rate/Area] 53 mL/min/{1.73_m2} Low >60 [facility] Comment on above: Result Comment: mL/m in/1.73m2 CKD-EPI Creatinine Equation (2020) Performed By: #### L 500.2500 ####[facility] [address] [place], [address] Glucose [Mass/Vol] 272 mg/dL High 70-99 [facility] Comment on above: Performed By: #### L 500.2500 ####[facility] [address] [place], [address] Potassium [Moles/Vol] 4.2 mmol/L Normal 3.3-5.1 [facility] Comment on above: Performed By: #### L 500.2500 ####[facility] [address] [place], [address] Sodium [Moles/Vol] 135 mmol/L Normal 133-145 [facility] Comment on above: Performed By: #### L 500.2500 ####[facility] [address] [place], [address] Urea nitrogen [Mass/Vol] 17 mg/dL Normal 4-19 [facility] Comment on above: Performed By: #### L 500.2500 ####[facility] [address] [place], [address] Bedside Glucoseon 02-05-2025 FINGERSTICK GLU 156 mg/dL High 74-106 [facility] Comment on above: Result Comment: KATARINA GEMENT OF PATIENT CARE PER NURSING PROTOCOL Performed By: #### L 501.080 ####[facility] [address] [place], [address] FINGERSTICK GLU 128 mg/dL High 74-106 [facility] Comment on above: Result Comment: KATARINA GEMENT OF PATIENT CARE PER NURSING PROTOCOL Performed By: #### L 501.080 ####[facility] [address] [place], [address] FINGERSTICK GLU 296 mg/dL High 74-106 [facility] Comment on above: Result Comment: KATARINA GEMENT OF PATIENT CARE PER NURSING PROTOCOL Performed By: #### L 501.080 ####[facility] [address] [place], [address] FINGERSTICK GLU 238 mg/dL High 74-106 [facility] Comment on above: Result Comment: KATARINA GEMENT OF PATIENT CARE PER NURSING PROTOCOL Performed By: #### L 501.080 ####[facility] [address] [place], [address] Carbon dioxide, total [Moles /volume] in Central venous bloodOrdered By: Lucio Borden on 02-05-2025 CO2 [Moles/Vol] 26.4 mmol/L 21.0-32.0 [facility] Chloride assayOrdered By: Chen Borden on 02-05-2025 Chloride [Moles/Vol] 94 mmol/L Low 98-108 [facility] Glomerular filtration rate ( GFR) estimation/1.73 sq m using serum, plasma, or whole bOrdered By: Lucio Borden on 02-05-2025 GFR/1.73 sq M.predicted among non-blacks MDRD (S/P/Bld) [Vol rate/Area] 53 mL/min/{1.73_m2} Low >60 [facility] Potassium measurement (mass/ volume)Ordered By: Lucio Borden on 02-05-2025 Potassium (Unsp spec) [Mass/Vol] 4.2 mmol/L 3.3-5.1 [facility] Serum creatinine measurement (mass/volume)Ordered By: Lucio Borden on 02-05-2025 Creatinine [Mass/Vol] 1.06 mg/dL 0.70-1.20 [facility] Serum glucose measurement (m ass/volume)Ordered By: Lucio Borden on 02-05-2025 Glucose [Mass/Vol] 272 mg/dL High 70-99 [facility] Serum or plasma calcium melanie urement (mass/volume)Ordered By: Lucio Borden on 02-05-2025 Calcium [Mass/Vol] 9.1 mg/dL 7.6-11.0 [facility] Serum or plasma urea nitroge n measurement (mass/volume)Ordered By: Lucio Borden on 02-05-2025 Urea nitrogen [Mass/Vol] 17 mg/dL 4-19 [facility] Sodium levelOrdered By: Lucio Borden on 02-05-2025 Sodium [Moles/Vol] 135 mmol/L 133-145 [facility] 12 Lead EKGon 02-04-2025 12 Lead EKG Normal [facility] Absolute lymphocyte countOrd ered By: Aj Holley on 02-04-2025 Lymphocytes Auto (Unsp spec) [#/Vol] 1.75 10*3/uL 0.83-4.51 [facility] Anion gap in Serum or Plasma Ordered By: Aj Holley on 02-04-2025 Anion gap [Moles/Vol] 16 mmol/L High 5-15 [facility] Automated lymphocyte count a s percentage of total leukocytesOrdered By: Aj Holley on 02-04-2025 Lymphocytes/100 WBC Auto (Unsp spec) 15.7 % Low 19-41 [facility] BUN/creatinine ratioOrdered By: Aj Holley on 02-04-2025 Urea nitrogen/Creatinine [Mass ratio] 13.2 mg/mg 10- [facility] Basic Metabolic Profile (BMP )on 02-04-2025 BUN/CRE 13.2 RATIO Normal -20 [facility] Comment on above: Performed By: #### L 500.2500, L100.0100 ####[facility] [address] [place], [address] Calcium [Mass/Vol] 8.9 mg/dL Normal 7.6-11.0 [facility] Comment on above: Performed By: #### L 500.2500, L100.0100 ####[facility] [address] [place], [address] Chloride [Moles/Vol] 95 mmol/L Low 98-108 [facility] Comment on above: Performed By: #### L 500.2500, L100.0100 ####[facility] [address] [place], [address] CO2 [Moles/Vol] 25.9 mmol/L Normal 21.0-32.0 [facility] Comment on above: Performed By: #### L 500.2500, L100.0100 ####[facility] [address] [place], [address] Creatinine [Mass/Vol] 1.14 mg/dL Normal 0.70-1.20 [facility] Comment on above: Performed By: #### L 500.2500, L100.0100 ####[facility] [address] [place], [address] ECRCL 37.95 ml/min Low 50-250 [facility] Comment on above: Performed By: #### L 500.2500, L100.0100 ####[facility] [address] [place], [address] GAP 16 High 5-15 [facility] Comment on above: Performed By: #### L 500.2500, L100.0100 ####[facility] [address] [place], [address] GFR/1.73 sq M.predicted among non-blacks MDRD (S/P/Bld) [Vol rate/Area] 48 mL/min/{1.73_m2} Low >60 [facility] Comment on above: Result Comment: mL/m in/1.73m2 CKD-EPI Creatinine Equation (2020) Performed By: #### L 500.2500, L100.0100 ####[facility] [address] [place], [address] Glucose [Mass/Vol] 132 mg/dL High 70-99 [facility] Comment on above: Performed By: #### L 500.2500, L100.0100 ####[facility] [address] [place], [address] Potassium [Moles/Vol] 3.9 mmol/L Normal 3.3-5.1 [facility] Comment on above: Result Comment: Hemo lysis present, Results??could be affected.?? Performed By: #### L 500.2500, L100.0100 ####[facility] [address] [place], [address] Sodium [Moles/Vol] 137 mmol/L Normal 133-145 [facility] Comment on above: Performed By: #### L 500.2500, L100.0100 ####[facility] [address] [place], [address] Urea nitrogen [Mass/Vol] 15 mg/dL Normal 4-19 [facility] Comment on above: Performed By: #### L 500.2500, L100.0100 ####[facility] [address] [place], [address] Basophil percentageOrdered B y: Aj Holley on 02-04-2025 Basophils/100 WBC (Bld) 0.2 % 0-1 [facility] Bedside Glucoseon 02-04-2025 FINGERSTICK GLU 179 mg/dL High 74-106 [facility] Comment on above: Result Comment: KATARINA GEMENT OF PATIENT CARE PER NURSING PROTOCOL Performed By: #### L 501.080 ####[facility] [address] [place], [address] FINGERSTICK GLU 240 mg/dL High 74-106 [facility] Comment on above: Result Comment: KATARINA GEMENT OF PATIENT CARE PER NURSING PROTOCOL Performed By: #### L 501.080 ####[facility] [address] [place], [address] CBC W/Diff, Automatedon 06-0 Absolute Lymph 1.75 X10 3/uL Normal 0.83-4.51 [facility] Comment on above: Performed By: #### L 500.2500, L100.0100 ####[facility] [address] [place], [address] Absolute Neut 8.4 X10 3/uL High 2.0-7.7 [facility] Comment on above: Performed By: #### L 500.2500, L100.0100 ####[facility] [address] [place], [address] Basophils/100 WBC (Bld) 0.2 % Normal 0-1 [facility] Comment on above: Performed By: #### L 500.2500, L100.0100 ####[facility] [address] [place], [address] Eosinophils/100 WBC (Bld) 1.7 % Normal 0-5 [facility] Comment on above: Performed By: #### L 500.2500, L100.0100 ####[facility] [address] [place], [address] Erythrocyte distribution width (RBC) [Ratio] 15.9 % High 11.6-14.6 [facility] Comment on above: Performed By: #### L 500.2500, L100.0100 ####[facility] [address] [place], [address] Hematocrit (Bld) [Volume fraction] 34.1 % Low 37-47 [facility] Comment on above: Performed By: #### L 500.2500, L100.0100 ####[facility] [address] [place], [address] Hemoglobin (Bld) [Mass/Vol] 10.7 g/dL Low 12.0-15.0 [facility] Comment on above: Performed By: #### L 500.2500, L100.0100 ####[facility] [address] [place], [address] IG% 0.400 Normal 0.0-0.9 [facility] Comment on above: Result Comment: IG% - Immature Granulocytes (promyelocytes, myelocytes andmetamyelocytes) > 1% indicates that a LEFT SHIFT is Present. Performed By: #### L 500.2500, L100.0100 ####[facility] [address] [place], [address] Lymphocytes/100 WBC (Bld) 15.7 % Low 19-41 [facility] Comment on above: Performed By: #### L 500.2500, L100.0100 ####[facility] [address] [place], [address] MCH (RBC) [Entitic mass] 27.9 pg Normal 27.0-32.0 [facility] Comment on above: Performed By: #### L 500.2500, L100.0100 ####[facility] [address] [place], [address] MCHC (RBC) [Mass/Vol] 31.4 g/dL Low 32-36 [facility] Comment on above: Performed By: #### L 500.2500, L100.0100 ####[facility] [address] [place], [address] MCV (RBC) [Entitic vol] 88.8 fL Normal 81-99 [facility] Comment on above: Performed By: #### L 500.2500, L100.0100 ####[facility] [address] [place], [address] Monocytes/100 WBC (Bld) 6.6 % Normal 0-10 [facility] Comment on above: Performed By: #### L 500.2500, L100.0100 ####[facility] [address] [place], [address] Neutrophils/100 WBC (Bld) 75.4 % High 47-70 [facility] Comment on above: Performed By: #### L 500.2500, L100.0100 ####[facility] [address] [place], [address] Nucleated RBC (Bld) [#/Vol] 0 10*3/uL Normal 0-5 [facility] Comment on above: Performed By: #### L 500.2500, L100.0100 ####[facility] [address] [place], [address] Platelet mean volume (Bld) [Entitic vol] 11.3 fL Normal 6.2-12.0 [facility] Comment on above: Performed By: #### L 500.2500, L100.0100 ####[facility] [address] [place], [address] Platelets (Bld) [#/Vol] 185 10*3/uL Normal 150-450 [facility] Comment on above: Performed By: #### L 500.2500, L100.0100 ####[facility] [address] [place], [address] RBC (Bld) [#/Vol] 3.84 10*6/uL Low 4.2-5.4 [facility] Comment on above: Performed By: #### L 500.2500, L100.0100 ####[facility] [address] [place], [address] RDW SD 51.4 fl High 35.1-43.9 [facility] Comment on above: Performed By: #### L 500.2500, L100.0100 ####[facility] [address] [place], [address] WBC (Bld) [#/Vol] 11.2 10*3/uL High 4.4-11.0 [facility] Comment on above: Performed By: #### L 500.2500, L100.0100 ####[facility] [address] [place], [address] CTA Chest W/WO Contraston CTA Chest W/WO Contrast Normal [facility] Carbon dioxide, total [Moles /volume] in Central venous bloodOrdered By: Aj Holley on 02-04-2025 CO2 [Moles/Vol] 25.9 mmol/L 21.0-32.0 [facility] Chest PA and Lateralon 02-04 Chest PA and Lateral Normal [facility] Chloride assayOrdered By: Dahlia Holley on 02-04-2025 Chloride [Moles/Vol] 95 mmol/L Low 98-108 [facility] Emergency Department Summary on 02-04-2025 Emergency Department Summary Normal [facility] Eosinophil percentageOrdered By: Aj Holley on 02-04-2025 Eosinophils/100 WBC (Bld) 1.7 % 0-5 [facility] Erythrocyte distribution wid th ratioOrdered By: Aj Holley on 02-04-2025 Erythrocyte distribution width (RBC) [Ratio] 15.9 % High 11.6-14.6 [facility] Erythrocyte distribution wid th standard deviationOrdered By: jA Holley on 02-04-2025 Erythrocyte distribution width (RBC) [Ratio] 51.4 fl High 35.1-43.9 [facility] Glomerular filtration rate ( GFR) estimation/1.73 sq m using serum, plasma, or whole bOrdered By: Aj Holley on 02-04-2025 GFR/1.73 sq M.predicted among non-blacks MDRD (S/P/Bld) [Vol rate/Area] 48 mL/min/{1.73_m2} Low >60 [facility] H AND P Exam - Hospital[place] 02-04-2025 H&P Exam - Hospitalist Normal [place] Hematocrit Auto (Bld) [Volum e fraction]Ordered By: Aj Holley on 02-04-2025 Hematocrit (Bld) [Volume fraction] 34.1 % Low 37-47 [facility] Hemoglobin measurementOrdere d By: Aj Holley on 02-04-2025 Hemoglobin (Bld) [Mass/Vol] 10.7 g/dL Low 12.0-15.0 [facility] Immature granulocytes/100 WB C Auto (Bld)Ordered By: Aj Holley on 02-04-2025 Immature granulocytes/100 WBC (Bld) 0.400 % 0.0-0.9 [facility] L499.0042on 02-04-2025 Trop T High Sen 133 ng/L Invalid Interpretation Code <=14 [facility] Comment on above: Result Comment: Crit ical Result(s) Called at 0915: by: SHARONA EASLEY. ??Results read back by same. Performed By: #### L 499.0042 ####[facility] [address] [place], [address] L499.0043on 02-04-2025 Trop T High Sen 139 ng/L Invalid Interpretation Code <=14 [facility] Comment on above: Result Comment: Crit ical Result(s) Called at 1125: by: Michael SEGAL to [facility].??Results read back by same. Performed By: #### L 499.0043 ####[facility] [address] [place], [address] L501.4021on 02-04-2025 Trop T High Sen 139 ng/L Invalid Interpretation Code <=14 [facility] Comment on above: Result Comment: Crit ical Result(s) Called at 0809: by: SHARONA GO.??Results read back by same. Performed By: #### L 501.4021, L503.7505 ####[facility] [address] [place], [address] L503.7505on 02-04-2025 Natriuretic peptide B (Bld) [Mass/Vol] 6247 pg/mL High <=1800 [facility] Comment on above: Result Comment: Hear t Failure Unlikely: < 300 pg/mLHeart Failure Likely< 50 Years: > 450 pg/mL50-75 Years: > 900 pg/mL>75 Years: > 1800 pg/mL Performed By: #### L 501.4021, L503.7505 ####[facility] [address] [place], [address] MCV (mean corpuscular volume ) determinationOrdered By: Aj Holley on 02-04-2025 MCV (RBC) [Entitic vol] 88.8 fL 81-99 [facility] Mean corpuscular hemoglobin (MCH) determinationOrdered By: Aj Holley on 02-04-2025 MCH (RBC) [Entitic mass] 27.9 pg 27.0-32.0 [facility] Monocyte percentageOrdered B y: Aj Holley on 02-04-2025 Monocytes/100 WBC (Bld) 6.6 % 0-10 [facility] Natriuretic peptide.B prohor hayley N-Terminal [Mass/volume] in Serum or PlasmaOrdered By: Aj Holley on 02-04-2025 Natriuretic peptide.B prohormone N-Terminal [Mass/Vol] 6247 pg/mL High <1800 [facility] Neutrophil percentageOrdered By: Aj Holley on 02-04-2025 Neutrophils/100 WBC (Bld) 75.4 % High 47-70 [facility] Platelet countOrdered By: Dahlia Holley on 02-04-2025 Platelets (Bld) [#/Vol] 185 10*3/uL 150-450 [facility] Potassium measurement (mass/ volume)Ordered By: Aj Holley on 02-04-2025 Potassium (Unsp spec) [Mass/Vol] 3.9 mmol/L 3.3-5.1 [facility] RBC Auto (Bld) [#/Vol]Ordere d By: Aj Holley on 02-04-2025 RBC (Bld) [#/Vol] 3.84 10*6/uL Low 4.2-5.4 [facility] Serum creatinine measurement (mass/volume)Ordered By: Aj Holley on 02-04-2025 Creatinine [Mass/Vol] 1.14 mg/dL 0.70-1.20 [facility] Serum glucose measurement (m ass/volume)Ordered By: Aj Holley on 02-04-2025 Glucose [Mass/Vol] 132 mg/dL High 70-99 [facility] Serum or plasma calcium melanie urement (mass/volume)Ordered By: Aj Holley on 02-04-2025 Calcium [Mass/Vol] 8.9 mg/dL 7.6-11.0 [facility] Serum or plasma urea nitroge n measurement (mass/volume)Ordered By: Aj Holley on 02-04-2025 Urea nitrogen [Mass/Vol] 15 mg/dL 4-19 [facility] Sodium levelOrdered By: Reynaldo Holley on 02-04-2025 Sodium [Moles/Vol] 137 mmol/L 133-145 [facility] Troponin T.cardiac [Mass/vol ume] in Serum or Plasma by High sensitivity methodOrdered By: Aj Holley on 02-04-2025 Troponin T.cardiac High sensitivity method [Mass/Vol] 139 ng/L High <14 [facility] Troponin T.cardiac High sensitivity method [Mass/Vol] 133 ng/L High <14 [facility] Troponin T.cardiac High sensitivity method [Mass/Vol] 139 ng/L High <14 [facility] White blood cell (WBC) count Ordered By: Aj Holley on 02-04-2025 WBC (Bld) [#/Vol] 11.2 10*3/uL High 4.4-11.0 [facility] Cardiology Visit Reporton Cardiology Visit Report Normal [facility] Basic Metabolic Profile (BMP )on 01-30-2025 BUN Normal 4-19 [facility] Comment on above: Result Comment: Canc elled via OM: Order cancelled - Patient discharged Performed By: #### L 500.2500, L100.0100 ####[facility] [address] [place], [address] BUN/CRE Normal 10-20 [facility] Comment on above: Result Comment: Canc elled via OM: Order cancelled - Patient discharged Performed By: #### L 500.2500, L100.0100 ####[facility] [address] [place], [address] Calcium Normal 7.6-11.0 [facility] Comment on above: Result Comment: Canc elled via OM: Order cancelled - Patient discharged Performed By: #### L 500.2500, L100.0100 ####[facility] [address] [place], [address] CL Normal 98-108 [facility] Comment on above: Result Comment: Canc elled via OM: Order cancelled - Patient discharged Performed By: #### L 500.2500, L100.0100 ####[facility] [address] [place], [address] CO2 Normal 21.0-32.0 [facility] Comment on above: Result Comment: Canc elled via OM: Order cancelled - Patient discharged Performed By: #### L 500.2500, L100.0100 ####[facility] [address] [place], [address] CREAT,SERUM Normal 0.70-1.20 [facility] Comment on above: Result Comment: Canc elled via OM: Order cancelled - Patient discharged Performed By: #### L 500.2500, L100.0100 ####[facility] [address] [place], [address] eGFR Normal >60 [facility] Comment on above: Result Comment: Canc elled via OM: Order cancelled - Patient discharged Performed By: #### L 500.2500, L100.0100 ####[facility] [address] [place], [address] GAP Normal 5-15 [facility] Comment on above: Result Comment: Canc elled via OM: Order cancelled - Patient discharged Performed By: #### L 500.2500, L100.0100 ####[facility] [address] [place], [address] GLU Normal 70-99 [facility] Comment on above: Result Comment: Canc elled via OM: Order cancelled - Patient discharged Performed By: #### L 500.2500, L100.0100 ####[facility] [address] [place], [address] Potassium Normal 3.3-5.1 [facility] Comment on above: Result Comment: Canc elled via OM: Order cancelled - Patient discharged Performed By: #### L 500.2500, L100.0100 ####[facility] [address] [place], [address] Basic Metabolic Profile (BMP) Normal 133-145 [facility] Comment on above: Result Comment: Canc elled via OM: Order cancelled - Patient discharged Performed By: #### L 500.2500, L100.0100 ####[facility] [address] [place], [address] CBC W/Diff, Automatedon 06-0 2-2024 Absolute Neut Normal 2.0-7.7 [facility] Comment on above: Result Comment: Canc elled via OM: Order cancelled - Patient discharged Performed By: #### L 500.2500, L100.0100 ####[facility] [address] [place], [address] HCT Normal 37-47 [facility] Comment on above: Result Comment: Canc elled via OM: Order cancelled - Patient discharged Performed By: #### L 500.2500, L100.0100 ####[facility] [address] [place], [address] HGB Normal 12.0-15.0 [facility] Comment on above: Result Comment: Canc elled via OM: Order cancelled - Patient discharged Performed By: #### L 500.2500, L100.0100 ####[facility] [address] [place], [address] MCH Normal 27.0-32.0 [facility] Comment on above: Result Comment: Canc elled via OM: Order cancelled - Patient discharged Performed By: #### L 500.2500, L100.0100 ####[facility] [address] [place], [address] MCHC Normal 32-36 [facility] Comment on above: Result Comment: Canc elled via OM: Order cancelled - Patient discharged Performed By: #### L 500.2500, L100.0100 ####[facility] [address] [place], [address] MCV Normal 81-99 [facility] Comment on above: Result Comment: Canc elled via OM: Order cancelled - Patient discharged Performed By: #### L 500.2500, L100.0100 ####[facility] [address] [place], [address] NEUT% Normal 47-70 [facility] Comment on above: Result Comment: Canc elled via OM: Order cancelled - Patient discharged Performed By: #### L 500.2500, L100.0100 ####[facility] [address] [place], [address] PLT Normal 150-450 [facility] Comment on above: Result Comment: Canc elled via OM: Order cancelled - Patient discharged Performed By: #### L 500.2500, L100.0100 ####[facility] [address] [place], [address] RBC Normal 4.2-5.4 [facility] Comment on above: Result Comment: Canc elled via OM: Order cancelled - Patient discharged Performed By: #### L 500.2500, L100.0100 ####[facility] [address] [place], [address] RDW CV Normal 11.6-14.6 [facility] Comment on above: Result Comment: Canc elled via OM: Order cancelled - Patient discharged Performed By: #### L 500.2500, L100.0100 ####[facility] [address] [place], [address] RDW SD Normal 35.1-43.9 [facility] Comment on above: Result Comment: Canc elled via OM: Order cancelled - Patient discharged Performed By: #### L 500.2500, L100.0100 ####[facility] [address] [place], [address] WBC Normal 4.4-11.0 [facility] Comment on above: Result Comment: Canc elled via OM: Order cancelled - Patient discharged Performed By: #### L 500.2500, L100.0100 ####[facility] [address] [place], [address] Basic Metabolic Profile (BMP )on 01-29-2025 BUN Normal 4-19 [facility] Comment on above: Result Comment: Canc elled via OM: Order cancelled - Patient discharged Performed By: #### L 100.0100, L500.2500 ####[facility] [address] [place], [address] BUN/CRE Normal 10-20 [facility] Comment on above: Result Comment: Canc elled via OM: Order cancelled - Patient discharged Performed By: #### L 100.0100, L500.2500 ####[facility] [address] [place], [address] Calcium Normal 7.6-11.0 [facility] Comment on above: Result Comment: Canc elled via OM: Order cancelled - Patient discharged Performed By: #### L 100.0100, L500.2500 ####[facility] [address] [place], [address] CL Normal 98-108 [facility] Comment on above: Result Comment: Canc elled via OM: Order cancelled - Patient discharged Performed By: #### L 100.0100, L500.2500 ####[facility] [address] [place], [address] CO2 Normal 21.0-32.0 [facility] Comment on above: Result Comment: Canc elled via OM: Order cancelled - Patient discharged Performed By: #### L 100.0100, L500.2500 ####[facility] [address] [place], [address] CREAT,SERUM Normal 0.70-1.20 [facility] Comment on above: Result Comment: Canc elled via OM: Order cancelled - Patient discharged Performed By: #### L 100.0100, L500.2500 ####[facility] [address] [place], [address] eGFR Normal >60 [facility] Comment on above: Result Comment: Canc elled via OM: Order cancelled - Patient discharged Performed By: #### L 100.0100, L500.2500 ####[facility] [address] [place], [address] GAP Normal 5-15 [facility] Comment on above: Result Comment: Canc elled via OM: Order cancelled - Patient discharged Performed By: #### L 100.0100, L500.2500 ####[facility] [address] [place], [address] GLU Normal 70-99 [facility] Comment on above: Result Comment: Canc elled via OM: Order cancelled - Patient discharged Performed By: #### L 100.0100, L500.2500 ####[facility] [address] [place], [address] Potassium Normal 3.3-5.1 [facility] Comment on above: Result Comment: Canc elled via OM: Order cancelled - Patient discharged Performed By: #### L 100.0100, L500.2500 ####[facility] [address] [place], [address] Basic Metabolic Profile (BMP) Normal 133-145 [facility] Comment on above: Result Comment: Canc elled via OM: Order cancelled - Patient discharged Performed By: #### L 100.0100, L500.2500 ####[facility] [address] [place], [address] CBC W/Diff, Automatedon 06-0 -2024 Absolute Neut Normal 2.0-7.7 [facility] Comment on above: Result Comment: Canc elled via OM: Order cancelled - Patient discharged Performed By: #### L 100.0100, L500.2500 ####[facility] [address] [place], [address] HCT Normal 37-47 [facility] Comment on above: Result Comment: Canc elled via OM: Order cancelled - Patient discharged Performed By: #### L 100.0100, L500.2500 ####[facility] [address] [place], [address] HGB Normal 12.0-15.0 [facility] Comment on above: Result Comment: Canc elled via OM: Order cancelled - Patient discharged Performed By: #### L 100.0100, L500.2500 ####[facility] [address] [place], [address] MCH Normal 27.0-32.0 [facility] Comment on above: Result Comment: Canc elled via OM: Order cancelled - Patient discharged Performed By: #### L 100.0100, L500.2500 ####[facility] [address] [place], [address] MCHC Normal 32-36 [facility] Comment on above: Result Comment: Canc elled via OM: Order cancelled - Patient discharged Performed By: #### L 100.0100, L500.2500 ####[facility] [address] [place], [address] MCV Normal 81-99 [facility] Comment on above: Result Comment: Canc elled via OM: Order cancelled - Patient discharged Performed By: #### L 100.0100, L500.2500 ####[facility] [address] [place], [address] NEUT% Normal 47-70 [facility] Comment on above: Result Comment: Canc elled via OM: Order cancelled - Patient discharged Performed By: #### L 100.0100, L500.2500 ####[facility] [address] [place], [address] PLT Normal 150-450 [facility] Comment on above: Result Comment: Canc elled via OM: Order cancelled - Patient discharged Performed By: #### L 100.0100, L500.2500 ####[facility] [address] [place], [address] RBC Normal 4.2-5.4 [facility] Comment on above: Result Comment: Canc elled via OM: Order cancelled - Patient discharged Performed By: #### L 100.0100, L500.2500 ####[facility] [address] [place], [address] RDW CV Normal 11.6-14.6 [facility] Comment on above: Result Comment: Canc elled via OM: Order cancelled - Patient discharged Performed By: #### L 100.0100, L500.2500 ####[facility] [address] [place], [address] RDW SD Normal 35.1-43.9 [facility] Comment on above: Result Comment: Canc elled via OM: Order cancelled - Patient discharged Performed By: #### L 100.0100, L500.2500 ####[facility] [address] [place], [address] WBC Normal 4.4-11.0 [facility] Comment on above: Result Comment: Canc elled via OM: Order cancelled - Patient discharged Performed By: #### L 100.0100, L500.2500 ####[facility] [address] [place], [address] Basic Metabolic Profile (BMP )on 01-28-2025 BUN Normal 4-19 [facility] Comment on above: Result Comment: Canc elled via OM: Order cancelled - Patient discharged Performed By: #### L 500.2500, L100.0100 ####[facility] [address] [place], [address] BUN/CRE Normal 10-20 [facility] Comment on above: Result Comment: Canc elled via OM: Order cancelled - Patient discharged Performed By: #### L 500.2500, L100.0100 ####[facility] [address] [place], [address] Calcium Normal 7.6-11.0 [facility] Comment on above: Result Comment: Canc elled via OM: Order cancelled - Patient discharged Performed By: #### L 500.2500, L100.0100 ####[facility] [address] [place], [address] CL Normal 98-108 [facility] Comment on above: Result Comment: Canc elled via OM: Order cancelled - Patient discharged Performed By: #### L 500.2500, L100.0100 ####[facility] [address] [place], [address] CO2 Normal 21.0-32.0 [facility] Comment on above: Result Comment: Canc elled via OM: Order cancelled - Patient discharged Performed By: #### L 500.2500, L100.0100 ####[facility] [address] [place], [address] CREAT,SERUM Normal 0.70-1.20 [facility] Comment on above: Result Comment: Canc elled via OM: Order cancelled - Patient discharged Performed By: #### L 500.2500, L100.0100 ####[facility] [address] [place], [address] eGFR Normal >60 [facility] Comment on above: Result Comment: Canc elled via OM: Order cancelled - Patient discharged Performed By: #### L 500.2500, L100.0100 ####[facility] [address] [place], [address] GAP Normal 5-15 [facility] Comment on above: Result Comment: Canc elled via OM: Order cancelled - Patient discharged Performed By: #### L 500.2500, L100.0100 ####[facility] [address] [place], [address] GLU Normal 70-99 [facility] Comment on above: Result Comment: Canc elled via OM: Order cancelled - Patient discharged Performed By: #### L 500.2500, L100.0100 ####[facility] [address] [place], [address] Potassium Normal 3.3-5.1 [facility] Comment on above: Result Comment: Canc elled via OM: Order cancelled - Patient discharged Performed By: #### L 500.2500, L100.0100 ####[facility] [address] [place], [address] Basic Metabolic Profile (BMP) Normal 133-145 [facility] Comment on above: Result Comment: Canc elled via OM: Order cancelled - Patient discharged Performed By: #### L 500.2500, L100.0100 ####[facility] [address] [place], [address] CBC W/Diff, Automatedon 05-3 Absolute Neut Normal 2.0-7.7 [facility] Comment on above: Result Comment: Canc elled via OM: Order cancelled - Patient discharged Performed By: #### L 500.2500, L100.0100 ####[facility] [address] [place], [address] HCT Normal 37-47 [facility] Comment on above: Result Comment: Canc elled via OM: Order cancelled - Patient discharged Performed By: #### L 500.2500, L100.0100 ####[facility] [address] [place], [address] HGB Normal 12.0-15.0 [facility] Comment on above: Result Comment: Canc elled via OM: Order cancelled - Patient discharged Performed By: #### L 500.2500, L100.0100 ####[facility] [address] [place], [address] MCH Normal 27.0-32.0 [facility] Comment on above: Result Comment: Canc elled via OM: Order cancelled - Patient discharged Performed By: #### L 500.2500, L100.0100 ####[facility] [address] [place], [address] MCHC Normal 32-36 [facility] Comment on above: Result Comment: Canc elled via OM: Order cancelled - Patient discharged Performed By: #### L 500.2500, L100.0100 ####[facility] [address] [place], [address] MCV Normal 81-99 [facility] Comment on above: Result Comment: Canc elled via OM: Order cancelled - Patient discharged Performed By: #### L 500.2500, L100.0100 ####[facility] [address] [place], [address] NEUT% Normal 47-70 [facility] Comment on above: Result Comment: Canc elled via OM: Order cancelled - Patient discharged Performed By: #### L 500.2500, L100.0100 ####[facility] [address] [place], [address] PLT Normal 150-450 [facility] Comment on above: Result Comment: Canc elled via OM: Order cancelled - Patient discharged Performed By: #### L 500.2500, L100.0100 ####[facility] [address] [place], [address] RBC Normal 4.2-5.4 [facility] Comment on above: Result Comment: Canc elled via OM: Order cancelled - Patient discharged Performed By: #### L 500.2500, L100.0100 ####[facility] [address] [place], [address] RDW CV Normal 11.6-14.6 [facility] Comment on above: Result Comment: Canc elled via OM: Order cancelled - Patient discharged Performed By: #### L 500.2500, L100.0100 ####[facility] [address] [place], [address] RDW SD Normal 35.1-43.9 [facility] Comment on above: Result Comment: Canc elled via OM: Order cancelled - Patient discharged Performed By: #### L 500.2500, L100.0100 ####[facility] [address] [place], [address] WBC Normal 4.4-11.0 [facility] Comment on above: Result Comment: Canc elled via OM: Order cancelled - Patient discharged Performed By: #### L 500.2500, L100.0100 ####[facility] [address] [place], [address] Basic Metabolic Profile (BMP )on 01-27-2025 BUN Normal 4-19 [facility] Comment on above: Result Comment: Canc elled via OM: Order cancelled - Patient discharged Performed By: #### L 500.2500, L100.0100 ####[facility] [address] [place], [address] BUN/CRE Normal 10-20 [facility] Comment on above: Result Comment: Canc elled via OM: Order cancelled - Patient discharged Performed By: #### L 500.2500, L100.0100 ####[facility] [address] [place], [address] Calcium Normal 7.6-11.0 [facility] Comment on above: Result Comment: Canc elled via OM: Order cancelled - Patient discharged Performed By: #### L 500.2500, L100.0100 ####[facility] [address] [place], [address] CL Normal 98-108 [facility] Comment on above: Result Comment: Canc elled via OM: Order cancelled - Patient discharged Performed By: #### L 500.2500, L100.0100 ####[facility] [address] [place], [address] CO2 Normal 21.0-32.0 [facility] Comment on above: Result Comment: Canc elled via OM: Order cancelled - Patient discharged Performed By: #### L 500.2500, L100.0100 ####[facility] [address] [place], [address] CREAT,SERUM Normal 0.70-1.20 [facility] Comment on above: Result Comment: Canc elled via OM: Order cancelled - Patient discharged Performed By: #### L 500.2500, L100.0100 ####[facility] [address] [place], [address] eGFR Normal >60 [facility] Comment on above: Result Comment: Canc elled via OM: Order cancelled - Patient discharged Performed By: #### L 500.2500, L100.0100 ####[facility] [address] [place], [address] GAP Normal 5-15 [facility] Comment on above: Result Comment: Canc elled via OM: Order cancelled - Patient discharged Performed By: #### L 500.2500, L100.0100 ####[facility] [address] [place], [address] GLU Normal 70-99 [facility] Comment on above: Result Comment: Canc elled via OM: Order cancelled - Patient discharged Performed By: #### L 500.2500, L100.0100 ####[facility] [address] [place], [address] Potassium Normal 3.3-5.1 [facility] Comment on above: Result Comment: Canc elled via OM: Order cancelled - Patient discharged Performed By: #### L 500.2500, L100.0100 ####[facility] [address] [place], [address] Basic Metabolic Profile (BMP) Normal 133-145 [facility] Comment on above: Result Comment: Canc elled via OM: Order cancelled - Patient discharged Performed By: #### L 500.2500, L100.0100 ####[facility] [address] [place], [address] CBC W/Diff, Automatedon 05-3 0-2024 Absolute Neut Normal 2.0-7.7 [facility] Comment on above: Result Comment: Canc elled via OM: Order cancelled - Patient discharged Performed By: #### L 500.2500, L100.0100 ####[facility] [address] [place], [address] HCT Normal 37-47 [facility] Comment on above: Result Comment: Canc elled via OM: Order cancelled - Patient discharged Performed By: #### L 500.2500, L100.0100 ####[facility] [address] [place], [address] HGB Normal 12.0-15.0 [facility] Comment on above: Result Comment: Canc elled via OM: Order cancelled - Patient discharged Performed By: #### L 500.2500, L100.0100 ####[facility] [address] [place], [address] MCH Normal 27.0-32.0 [facility] Comment on above: Result Comment: Canc elled via OM: Order cancelled - Patient discharged Performed By: #### L 500.2500, L100.0100 ####[facility] [address] [place], [address] MCHC Normal 32-36 [facility] Comment on above: Result Comment: Canc elled via OM: Order cancelled - Patient discharged Performed By: #### L 500.2500, L100.0100 ####[facility] [address] [place], [address] MCV Normal 81-99 [facility] Comment on above: Result Comment: Canc elled via OM: Order cancelled - Patient discharged Performed By: #### L 500.2500, L100.0100 ####[facility] [address] [place], [address] NEUT% Normal 47-70 [facility] Comment on above: Result Comment: Canc elled via OM: Order cancelled - Patient discharged Performed By: #### L 500.2500, L100.0100 ####[facility] [address] [place], [address] PLT Normal 150-450 [facility] Comment on above: Result Comment: Canc elled via OM: Order cancelled - Patient discharged Performed By: #### L 500.2500, L100.0100 ####[facility] [address] [place], [address] RBC Normal 4.2-5.4 [facility] Comment on above: Result Comment: Canc elled via OM: Order cancelled - Patient discharged Performed By: #### L 500.2500, L100.0100 ####[facility] [address] [place], [address] RDW CV Normal 11.6-14.6 [facility] Comment on above: Result Comment: Canc elled via OM: Order cancelled - Patient discharged Performed By: #### L 500.2500, L100.0100 ####[facility] [address] [place], [address] RDW SD Normal 35.1-43.9 [facility] Comment on above: Result Comment: Canc elled via OM: Order cancelled - Patient discharged Performed By: #### L 500.2500, L100.0100 ####[facility] [address] [place], [address] WBC Normal 4.4-11.0 [facility] Comment on above: Result Comment: Canc elled via OM: Order cancelled - Patient discharged Performed By: #### L 500.2500, L100.0100 ####[facility] [address] [place], [address] Absolute lymphocyte countOrd ered By: Jg Bryan on 01-26-2025 Lymphocytes Auto (Unsp spec) [#/Vol] 2.24 10*3/uL 0.83-4.51 [facility] Anion gap in Serum or Plasma Ordered By: Jg Bryan on 01-26-2025 Anion gap [Moles/Vol] 10 mmol/L 5-15 [facility] Automated lymphocyte count a s percentage of total leukocytesOrdered By: Jg Bryan on 01-26-2025 Lymphocytes/100 WBC Auto (Unsp spec) 25.1 % 19-41 [facility] BUN/creatinine ratioOrdered By: Jg Bryan on 01-26-2025 Urea nitrogen/Creatinine [Mass ratio] 30.2 mg/mg High 10-20 [facility] Basic Metabolic Profile (BMP )on 01-26-2025 BUN Normal 4-19 [facility] Comment on above: Result Comment: Canc elled via OM: Order cancelled - Patient discharged Performed By: #### L 500.2500, L100.0100 ####[facility] [address] [place], [address] BUN/CRE Normal 10-20 [facility] Comment on above: Result Comment: Canc elled via OM: Order cancelled - Patient discharged Performed By: #### L 500.2500, L100.0100 ####[facility] [address] [place], [address] Calcium Normal 7.6-11.0 [facility] Comment on above: Result Comment: Canc elled via OM: Order cancelled - Patient discharged Performed By: #### L 500.2500, L100.0100 ####[facility] [address] [place], [address] CL Normal 98-108 [facility] Comment on above: Result Comment: Canc elled via OM: Order cancelled - Patient discharged Performed By: #### L 500.2500, L100.0100 ####[facility] [address] [place], [address] CO2 Normal 21.0-32.0 [facility] Comment on above: Result Comment: Canc elled via OM: Order cancelled - Patient discharged Performed By: #### L 500.2500, L100.0100 ####[facility] [address] [place], [address] CREAT,SERUM Normal 0.70-1.20 [facility] Comment on above: Result Comment: Canc elled via OM: Order cancelled - Patient discharged Performed By: #### L 500.2500, L100.0100 ####[facility] [address] [place], [address] eGFR Normal >60 [facility] Comment on above: Result Comment: Canc elled via OM: Order cancelled - Patient discharged Performed By: #### L 500.2500, L100.0100 ####[facility] [address] [place], [address] GAP Normal 5-15 [facility] Comment on above: Result Comment: Canc elled via OM: Order cancelled - Patient discharged Performed By: #### L 500.2500, L100.0100 ####[facility] [address] [place], [address] GLU Normal 70-99 [facility] Comment on above: Result Comment: Canc elled via OM: Order cancelled - Patient discharged Performed By: #### L 500.2500, L100.0100 ####[facility] [address] [place], [address] Potassium Normal 3.3-5.1 [facility] Comment on above: Result Comment: Canc elled via OM: Order cancelled - Patient discharged Performed By: #### L 500.2500, L100.0100 ####[facility] [address] [place], [address] Basic Metabolic Profile (BMP) Normal 133-145 [facility] Comment on above: Result Comment: Canc elled via OM: Order cancelled - Patient discharged Performed By: #### L 500.2500, L100.0100 ####[facility] [address] [place], [address] BUN/CRE 30.2 RATIO High 10-20 [facility] Comment on above: Performed By: #### L 501.5200, L503.7505, L500.2500, L100.0100 ####[facility] [address] [place], [address] Calcium [Mass/Vol] 10.2 mg/dL Normal 7.6-11.0 [facility] Comment on above: Performed By: #### L 501.5200, L503.7505, L500.2500, L100.0100 ####[facility] [address] [place], [address] Chloride [Moles/Vol] 104 mmol/L Normal 98-108 [facility] Comment on above: Performed By: #### L 501.5200, L503.7505, L500.2500, L100.0100 ####[facility] [address] [place], [address] CO2 [Moles/Vol] 27.1 mmol/L Normal 21.0-32.0 [facility] Comment on above: Performed By: #### L 501.5200, L503.7505, L500.2500, L100.0100 ####[facility] [address] [place], [address] Creatinine [Mass/Vol] 1.16 mg/dL Normal 0.70-1.20 [facility] Comment on above: Performed By: #### L 501.5200, L503.7505, L500.2500, L100.0100 ####[facility] [address] [place], [address] ECRCL 38.24 ml/min Low 50-250 [facility] Comment on above: Performed By: #### L 501.5200, L503.7505, L500.2500, L100.0100 ####[facility] [address] [place], [address] GAP 10 Normal 5-15 [facility] Comment on above: Performed By: #### L 501.5200, L503.7505, L500.2500, L100.0100 ####[facility] [address] [place], [address] GFR/1.73 sq M.predicted among non-blacks MDRD (S/P/Bld) [Vol rate/Area] 47 mL/min/{1.73_m2} Low >60 [facility] Comment on above: Result Comment: mL/m in/1.73m2 CKD-EPI Creatinine Equation (2020) Performed By: #### L 501.5200, L503.7505, L500.2500, L100.0100 ####[facility] [address] [place], [address] Glucose [Mass/Vol] 211 mg/dL High 70-99 [facility] Comment on above: Performed By: #### L 501.5200, L503.7505, L500.2500, L100.0100 ####[facility] [address] [place], [address] Potassium [Moles/Vol] 4.1 mmol/L Normal 3.3-5.1 [facility] Comment on above: Performed By: #### L 501.5200, L503.7505, L500.2500, L100.0100 ####[facility] [address] [place], [address] Sodium [Moles/Vol] 141 mmol/L Normal 133-145 [facility] Comment on above: Performed By: #### L 501.5200, L503.7505, L500.2500, L100.0100 ####[facility] [address] [place], [address] Urea nitrogen [Mass/Vol] 35 mg/dL High 4-19 [facility] Comment on above: Performed By: #### L 501.5200, L503.7505, L500.2500, L100.0100 ####[facility] [address] [place], [address] Basophil percentageOrdered B y: gJ Bryan on 01-26-2025 Basophils/100 WBC (Bld) 0.1 % 0-1 [facility] CBC W/Diff, Automatedon 12-30 Absolute Neut Normal 2.0-7.7 [facility] Comment on above: Result Comment: Canc elled via OM: Order cancelled - Patient discharged Performed By: #### L 500.2500, L100.0100 ####[facility] [address] [place], [address] HCT Normal 37-47 [facility] Comment on above: Result Comment: Canc elled via OM: Order cancelled - Patient discharged Performed By: #### L 500.2500, L100.0100 ####[facility] [address] [place], [address] HGB Normal 12.0-15.0 [facility] Comment on above: Result Comment: Canc elled via OM: Order cancelled - Patient discharged Performed By: #### L 500.2500, L100.0100 ####[facility] [address] [place], [address] MCH Normal 27.0-32.0 [facility] Comment on above: Result Comment: Canc elled via OM: Order cancelled - Patient discharged Performed By: #### L 500.2500, L100.0100 ####[facility] [address] [place], [address] MCHC Normal 32-36 [facility] Comment on above: Result Comment: Canc elled via OM: Order cancelled - Patient discharged Performed By: #### L 500.2500, L100.0100 ####[facility] [address] [place], [address] MCV Normal 81-99 [facility] Comment on above: Result Comment: Canc elled via OM: Order cancelled - Patient discharged Performed By: #### L 500.2500, L100.0100 ####[facility] [address] [place], [address] NEUT% Normal 47-70 [facility] Comment on above: Result Comment: Canc elled via OM: Order cancelled - Patient discharged Performed By: #### L 500.2500, L100.0100 ####[facility] [address] [place], [address] PLT Normal 150-450 [facility] Comment on above: Result Comment: Canc elled via OM: Order cancelled - Patient discharged Performed By: #### L 500.2500, L100.0100 ####[facility] [address] [place], [address] RBC Normal 4.2-5.4 [facility] Comment on above: Result Comment: Canc elled via OM: Order cancelled - Patient discharged Performed By: #### L 500.2500, L100.0100 ####[facility] [address] [place], [address] RDW CV Normal 11.6-14.6 [facility] Comment on above: Result Comment: Canc elled via OM: Order cancelled - Patient discharged Performed By: #### L 500.2500, L100.0100 ####[facility] [address] [place], [address] RDW SD Normal 35.1-43.9 [facility] Comment on above: Result Comment: Canc elled via OM: Order cancelled - Patient discharged Performed By: #### L 500.2500, L100.0100 ####[facility] [address] [place], [address] WBC Normal 4.4-11.0 [facility] Comment on above: Result Comment: Canc elled via OM: Order cancelled - Patient discharged Performed By: #### L 500.2500, L100.0100 ####[facility] [address] [place], [address] Absolute Lymph 2.24 X10 3/uL Normal 0.83-4.51 [facility] Comment on above: Performed By: #### L 501.5200, L503.7505, L500.2500, L100.0100 ####[facility] [address] [place], [address] Absolute Neut 5.8 X10 3/uL Normal 2.0-7.7 [facility] Comment on above: Performed By: #### L 501.5200, L503.7505, L500.2500, L100.0100 ####[facility] [address] [place], [address] Basophils/100 WBC (Bld) 0.1 % Normal 0-1 [facility] Comment on above: Performed By: #### L 501.5200, L503.7505, L500.2500, L100.0100 ####[facility] [address] [place], [address] Eosinophils/100 WBC (Bld) 2.8 % Normal 0-5 [facility] Comment on above: Performed By: #### L 501.5200, L503.7505, L500.2500, L100.0100 ####[facility] [address] [place], [address] Erythrocyte distribution width (RBC) [Ratio] 15.9 % High 11.6-14.6 [facility] Comment on above: Performed By: #### L 501.5200, L503.7505, L500.2500, L100.0100 ####[facility] [address] [place], [address] Hematocrit (Bld) [Volume fraction] 37.9 % Normal 37-47 [facility] Comment on above: Performed By: #### L 501.5200, L503.7505, L500.2500, L100.0100 ####[facility] [address] [place], [address] Hemoglobin (Bld) [Mass/Vol] 11.8 g/dL Low 12.0-15.0 [facility] Comment on above: Performed By: #### L 501.5200, L503.7505, L500.2500, L100.0100 ####[facility] [address] [place], [address] IG% 0.300 Normal 0.0-0.9 [facility] Comment on above: Result Comment: IG% - Immature Granulocytes (promyelocytes, myelocytes andmetamyelocytes) > 1% indicates that a LEFT SHIFT is Present. Performed By: #### L 501.5200, L503.7505, L500.2500, L100.0100 ####[facility] [address] [place], [address] Lymphocytes/100 WBC (Bld) 25.1 % Normal 19-41 [facility] Comment on above: Performed By: #### L 501.5200, L503.7505, L500.2500, L100.0100 ####[facility] [address] [place], [address] MCH (RBC) [Entitic mass] 27.3 pg Normal 27.0-32.0 [facility] Comment on above: Performed By: #### L 501.5200, L503.7505, L500.2500, L100.0100 ####[facility] [address] [place], [address] MCHC (RBC) [Mass/Vol] 31.1 g/dL Low 32-36 [facility] Comment on above: Performed By: #### L 501.5200, L503.7505, L500.2500, L100.0100 ####[facility] [address] [place], [address] MCV (RBC) [Entitic vol] 87.5 fL Normal 81-99 [facility] Comment on above: Performed By: #### L 501.5200, L503.7505, L500.2500, L100.0100 ####[facility] [address] [place], [address] Monocytes/100 WBC (Bld) 6.7 % Normal 0-10 [facility] Comment on above: Performed By: #### L 501.5200, L503.7505, L500.2500, L100.0100 ####[facility] [address] [place], [address] Neutrophils/100 WBC (Bld) 65.0 % Normal 47-70 [facility] Comment on above: Performed By: #### L 501.5200, L503.7505, L500.2500, L100.0100 ####[facility] [address] [place], [address] Nucleated RBC (Bld) [#/Vol] 0 10*3/uL Normal 0-5 [facility] Comment on above: Performed By: #### L 501.5200, L503.7505, L500.2500, L100.0100 ####[facility] [address] [place], [address] Platelet mean volume (Bld) [Entitic vol] 10.8 fL Normal 6.2-12.0 [facility] Comment on above: Performed By: #### L 501.5200, L503.7505, L500.2500, L100.0100 ####[facility] [address] [place], [address] Platelets (Bld) [#/Vol] 247 10*3/uL Normal 150-450 [facility] Comment on above: Performed By: #### L 501.5200, L503.7505, L500.2500, L100.0100 ####[facility] [address] [place], [address] RBC (Bld) [#/Vol] 4.33 10*6/uL Normal 4.2-5.4 [facility] Comment on above: Performed By: #### L 501.5200, L503.7505, L500.2500, L100.0100 ####[facility] [address] [place], [address] RDW SD 51.0 fl High 35.1-43.9 [facility] Comment on above: Performed By: #### L 501.5200, L503.7505, L500.2500, L100.0100 ####[facility] [address] [place], [address] WBC (Bld) [#/Vol] 8.9 10*3/uL Normal 4.4-11.0 [facility] Comment on above: Performed By: #### L 501.5200, L503.7505, L500.2500, L100.0100 ####[facility] [address] [place], [address] Carbon dioxide, total [Moles /volume] in Central venous bloodOrdered By: Jg Bryan on 01-26-2025 CO2 [Moles/Vol] 27.1 mmol/L 21.0-32.0 [facility] Chest PA and Lateralon 01-26 Chest PA and Lateral Normal [facility] Chloride assayOrdered By: Matilde Bryan on 01-26-2025 Chloride [Moles/Vol] 104 mmol/L 98-108 [facility] Emergency Department Summary on 01-26-2025 Emergency Department Summary Normal [facility] Eosinophil percentageOrdered By: Jg Bryan on 01-26-2025 Eosinophils/100 WBC (Bld) 2.8 % 0-5 [facility] Erythrocyte distribution wid th ratioOrdered By: Jg Bryan on 01-26-2025 Erythrocyte distribution width (RBC) [Ratio] 15.9 % High 11.6-14.6 [facility] Erythrocyte distribution wid th standard deviationOrdered By: Jg Bryan on 01-26-2025 Erythrocyte distribution width (RBC) [Ratio] 51.0 fl High 35.1-43.9 [facility] Glomerular filtration rate ( GFR) estimation/1.73 sq m using serum, plasma, or whole bOrdered By: Jg Bryan on 01-26-2025 GFR/1.73 sq M.predicted among non-blacks MDRD (S/P/Bld) [Vol rate/Area] 47 mL/min/{1.73_m2} Low >60 [facility] Hematocrit Auto (Bld) [Volum e fraction]Ordered By: Jg Bryan on 01-26-2025 Hematocrit (Bld) [Volume fraction] 37.9 % 37-47 [facility] Hemoglobin measurementOrdere d By: Jg Bryan on 01-26-2025 Hemoglobin (Bld) [Mass/Vol] 11.8 g/dL Low 12.0-15.0 [facility] Immature granulocytes/100 WB C Auto (Bld)Ordered By: Jg Bryan on 01-26-2025 Immature granulocytes/100 WBC (Bld) 0.300 % 0.0-0.9 [facility] L503.7505on 01-26-2025 Natriuretic peptide B (Bld) [Mass/Vol] 3334 pg/mL High <=1800 [facility] Comment on above: Result Comment: Hear t Failure Unlikely: < 300 pg/mLHeart Failure Likely< 50 Years: > 450 pg/mL50-75 Years: > 900 pg/mL>75 Years: > 1800 pg/mL Performed By: #### L 501.5200, L503.7505, L500.2500, L100.0100 ####[facility] [address] [place], [address] MCV (mean corpuscular volume ) determinationOrdered By: Jg Bryan on 01-26-2025 MCV (RBC) [Entitic vol] 87.5 fL 81-99 [facility] Magnesiumon 01-26-2025 Magnesium [Mass/Vol] 2.7 mg/dL High 1.5-2.2 [facility] Comment on above: Performed By: #### L 501.5200, L503.7505, L500.2500, L100.0100 ####[facility] [address] [place], [place], [address] Magnesium measurement (mass/ volume)Ordered By: Jg Bryan on 01-26-2025 Magnesium (Unsp spec) [Mass/Vol] 2.7 mg/dL High 1.5-2.2 [facility] Mean corpuscular hemoglobin (MCH) determinationOrdered By: Jg Bryan on 01-26-2025 MCH (RBC) [Entitic mass] 27.3 pg 27.0-32.0 [facility] Monocyte percentageOrdered B y: Jg Bryan on 01-26-2025 Monocytes/100 WBC (Bld) 6.7 % 0-10 [facility] Natriuretic peptide.B prohor hayley N-Terminal [Mass/volume] in Serum or PlasmaOrdered By: Jg Bryan on 01-26-2025 Natriuretic peptide.B prohormone N-Terminal [Mass/Vol] 3334 pg/mL High <1800 [facility] Neutrophil percentageOrdered By: Jg Bryan on 01-26-2025 Neutrophils/100 WBC (Bld) 65.0 % 47-70 [facility] Platelet countOrdered By: Matilde Bryan on 01-26-2025 Platelets (Bld) [#/Vol] 247 10*3/uL 150-450 [facility] Potassium measurement (mass/ volume)Ordered By: Jg Bryan on 01-26-2025 Potassium (Unsp spec) [Mass/Vol] 4.1 mmol/L 3.3-5.1 [facility] RBC Auto (Bld) [#/Vol]Ordere d By: Jg Bryan on 01-26-2025 RBC (Bld) [#/Vol] 4.33 10*6/uL 4.2-5.4 [facility] Serum creatinine measurement (mass/volume)Ordered By: Jg Bryan on 01-26-2025 Creatinine [Mass/Vol] 1.16 mg/dL 0.70-1.20 [facility] Serum glucose measurement (m ass/volume)Ordered By: Jg Bryan on 01-26-2025 Glucose [Mass/Vol] 211 mg/dL High 70-99 [facility] Serum or plasma calcium melanie urement (mass/volume)Ordered By: Jg Bryan on 01-26-2025 Calcium [Mass/Vol] 10.2 mg/dL 7.6-11.0 [facility] Serum or plasma urea nitroge n measurement (mass/volume)Ordered By: Jg Bryan on 01-26-2025 Urea nitrogen [Mass/Vol] 35 mg/dL High 4-19 [facility] Sodium levelOrdered By: Cosme Bryan on 01-26-2025 Sodium [Moles/Vol] 141 mmol/L 133-145 [facility] White blood cell (WBC) count Ordered By: Jg Bryan on 01-26-2025 WBC (Bld) [#/Vol] 8.9 10*3/uL 4.4-11.0 [facility] Basic Metabolic Profile (BMP )on 01-25-2025 BUN Normal 4-19 [facility] Comment on above: Result Comment: Canc elled via OM: Order cancelled - Patient discharged Performed By: #### L 100.0100, L500.2500 ####[facility] [address] [place], [address] BUN/CRE Normal 10-20 [facility] Comment on above: Result Comment: Canc elled via OM: Order cancelled - Patient discharged Performed By: #### L 100.0100, L500.2500 ####[facility] [address] [place], [address] Calcium Normal 7.6-11.0 [facility] Comment on above: Result Comment: Canc elled via OM: Order cancelled - Patient discharged Performed By: #### L 100.0100, L500.2500 ####[facility] [address] [place], [address] CL Normal 98-108 [facility] Comment on above: Result Comment: Canc elled via OM: Order cancelled - Patient discharged Performed By: #### L 100.0100, L500.2500 ####[facility] [address] [place], [address] CO2 Normal 21.0-32.0 [facility] Comment on above: Result Comment: Canc elled via OM: Order cancelled - Patient discharged Performed By: #### L 100.0100, L500.2500 ####[facility] [address] [place], [address] CREAT,SERUM Normal 0.70-1.20 [facility] Comment on above: Result Comment: Canc elled via OM: Order cancelled - Patient discharged Performed By: #### L 100.0100, L500.2500 ####[facility] [address] [place], [address] eGFR Normal >60 [facility] Comment on above: Result Comment: Canc elled via OM: Order cancelled - Patient discharged Performed By: #### L 100.0100, L500.2500 ####[facility] [address] [place], [address] GAP Normal 5-15 [facility] Comment on above: Result Comment: Canc elled via OM: Order cancelled - Patient discharged Performed By: #### L 100.0100, L500.2500 ####[facility] [address] [place], [address] GLU Normal 70-99 [facility] Comment on above: Result Comment: Canc elled via OM: Order cancelled - Patient discharged Performed By: #### L 100.0100, L500.2500 ####[facility] [address] [place], [address] Potassium Normal 3.3-5.1 [facility] Comment on above: Result Comment: Canc elled via OM: Order cancelled - Patient discharged Performed By: #### L 100.0100, L500.2500 ####[facility] [address] [place], [address] Basic Metabolic Profile (BMP) Normal 133-145 [facility] Comment on above: Result Comment: Canc elled via OM: Order cancelled - Patient discharged Performed By: #### L 100.0100, L500.2500 ####[facility] [address] [place], [address] CBC W/Diff, Automatedon 05-2 Absolute Neut Normal 2.0-7.7 [facility] Comment on above: Result Comment: Canc elled via OM: Order cancelled - Patient discharged Performed By: #### L 100.0100, L500.2500 ####[facility] [address] [place], [address] HCT Normal 37-47 [facility] Comment on above: Result Comment: Canc elled via OM: Order cancelled - Patient discharged Performed By: #### L 100.0100, L500.2500 ####[facility] [address] [place], [address] HGB Normal 12.0-15.0 [facility] Comment on above: Result Comment: Canc elled via OM: Order cancelled - Patient discharged Performed By: #### L 100.0100, L500.2500 ####[facility] [address] [place], [address] MCH Normal 27.0-32.0 [facility] Comment on above: Result Comment: Canc elled via OM: Order cancelled - Patient discharged Performed By: #### L 100.0100, L500.2500 ####[facility] [address] [place], [address] MCHC Normal 32-36 [facility] Comment on above: Result Comment: Canc elled via OM: Order cancelled - Patient discharged Performed By: #### L 100.0100, L500.2500 ####[facility] [address] [place], [address] MCV Normal 81-99 [facility] Comment on above: Result Comment: Canc elled via OM: Order cancelled - Patient discharged Performed By: #### L 100.0100, L500.2500 ####[facility] [address] [place], [address] NEUT% Normal 47-70 [facility] Comment on above: Result Comment: Canc elled via OM: Order cancelled - Patient discharged Performed By: #### L 100.0100, L500.2500 ####[facility] [address] [place], [address] PLT Normal 150-450 [facility] Comment on above: Result Comment: Canc elled via OM: Order cancelled - Patient discharged Performed By: #### L 100.0100, L500.2500 ####[facility] [address] [place], [address] RBC Normal 4.2-5.4 [facility] Comment on above: Result Comment: Canc elled via OM: Order cancelled - Patient discharged Performed By: #### L 100.0100, L500.2500 ####[facility] [address] [place], [address] RDW CV Normal 11.6-14.6 [facility] Comment on above: Result Comment: Canc elled via OM: Order cancelled - Patient discharged Performed By: #### L 100.0100, L500.2500 ####[facility] [address] [place], [address] RDW SD Normal 35.1-43.9 [facility] Comment on above: Result Comment: Canc elled via OM: Order cancelled - Patient discharged Performed By: #### L 100.0100, L500.2500 ####[facility] [address] [place], [address] WBC Normal 4.4-11.0 [facility] Comment on above: Result Comment: Canc elled via OM: Order cancelled - Patient discharged Performed By: #### L 100.0100, L500.2500 ####[facility] [address] [place], [address] Culture, Blood (WB)on 2024 CUB Blood cultures x2, from two different sites No growth in 5 days. Normal [facility] Comment on above: Performed By: #### M 200.1000 ####[facility] [address] [place], [address] Performed By: #### M 200.1000, L503.6005 ####[facility] [address] [place], [address] Performed By: #### L 300.4310, L100.0100, L300.3900, L501.4021, L503.6005, L500.4050, M200.1000 ####[facility] [address] [place], [address] Absolute lymphocyte countOrd ered By: Melba Hartmann on 01-24-2025 Lymphocytes Auto (Unsp spec) [#/Vol] 2.19 10*3/uL 0.83-4.51 [facility] Anion gap in Serum or Plasma Ordered By: Melba Hartmann on 01-24-2025 Anion gap [Moles/Vol] 12 mmol/L 5-15 [facility] Automated lymphocyte count a s percentage of total leukocytesOrdered By: Melba Hartmann on 01-24-2025 Lymphocytes/100 WBC Auto (Unsp spec) 19.3 % 19-41 [facility] BUN/creatinine ratioOrdered By: Melba Hartmann on 01-24-2025 Urea nitrogen/Creatinine [Mass ratio] 35.2 mg/mg High 10-20 [facility] Basic Metabolic Profile (BMP )on 01-24-2025 BUN/CRE 35.2 RATIO High [facility]20 [facility] Comment on above: Performed By: #### L 500.2500, L100.0100 ####[facility] [address] [place], [address] Calcium [Mass/Vol] 10.1 mg/dL Normal 7.6-11.0 [facility] Comment on above: Performed By: #### L 500.2500, L100.0100 ####[facility] [address] [place], [address] Chloride [Moles/Vol] 102 mmol/L Normal 98-108 [facility] Comment on above: Performed By: #### L 500.2500, L100.0100 ####[facility] [address] [place], [address] CO2 [Moles/Vol] 23.7 mmol/L Normal 21.0-32.0 [facility] Comment on above: Performed By: #### L 500.2500, L100.0100 ####[facility] [address] [place], [address] Creatinine [Mass/Vol] 1.31 mg/dL High 0.70-1.20 [facility] Comment on above: Performed By: #### L 500.2500, L100.0100 ####[facility] [address] [place], [address] ECRCL 33.41 ml/min Low 50-250 [facility] Comment on above: Performed By: #### L 500.2500, L100.0100 ####[facility] [address] [place], [address] GAP 12 Normal 5-15 [facility] Comment on above: Performed By: #### L 500.2500, L100.0100 ####[facility] [address] [place], [address] GFR/1.73 sq M.predicted among non-blacks MDRD (S/P/Bld) [Vol rate/Area] 41 mL/min/{1.73_m2} Low >60 [facility] Comment on above: Result Comment: mL/m in/1.73m2 CKD-EPI Creatinine Equation (2020) Performed By: #### L 500.2500, L100.0100 ####[facility] [address] [place], [address] Glucose [Mass/Vol] 133 mg/dL High 70-99 [facility] Comment on above: Performed By: #### L 500.2500, L100.0100 ####[facility] [address] [place], [address] Potassium [Moles/Vol] 3.5 mmol/L Normal 3.3-5.1 [facility] Comment on above: Performed By: #### L 500.2500, L100.0100 ####[facility] [address] [place], [address] Sodium [Moles/Vol] 138 mmol/L Normal 133-145 [facility] Comment on above: Performed By: #### L 500.2500, L100.0100 ####[facility] [address] [place], [address] Urea nitrogen [Mass/Vol] 46 mg/dL High 4-19 [facility] Comment on above: Performed By: #### L 500.2500, L100.0100 ####[facility] [address] [place], [address] Basophil percentageOrdered B y: Melba Hartmann on 01-24-2025 Basophils/100 WBC (Bld) 0.2 % 0-1 [facility] Bedside Glucoseon 01-24-2025 FINGERSTICK GLU 167 mg/dL High 74-106 [facility] Comment on above: Result Comment: KATARINA GEMENT OF PATIENT CARE PER NURSING PROTOCOL Performed By: #### L 501.080 ####[facility] [address] [place], [address] FINGERSTICK GLU 143 mg/dL High 74-106 [facility] Comment on above: Result Comment: KATARINA GEMENT OF PATIENT CARE PER NURSING PROTOCOL Performed By: #### L 501.080 ####[facility] [address] [place], [address] CBC W/Diff, Automatedon - Absolute Lymph 2.19 X10 3/uL Normal 0.83-4.51 [facility] Comment on above: Performed By: #### L 500.2500, L100.0100 ####[facility] [address] [place], [address] Absolute Neut 8.2 X10 3/uL High 2.0-7.7 [facility] Comment on above: Performed By: #### L 500.2500, L100.0100 ####[facility] [address] [place], [address] Basophils/100 WBC (Bld) 0.2 % Normal 0-1 [facility] Comment on above: Performed By: #### L 500.2500, L100.0100 ####[facility] [address] [place], [address] Eosinophils/100 WBC (Bld) 0.2 % Normal 0-5 [facility] Comment on above: Performed By: #### L 500.2500, L100.0100 ####[facility] [address] [place], [address] Erythrocyte distribution width (RBC) [Ratio] 15.8 % High 11.6-14.6 [facility] Comment on above: Performed By: #### L 500.2500, L100.0100 ####[facility] [address] [place], [address] Hematocrit (Bld) [Volume fraction] 40.7 % Normal 37-47 [facility] Comment on above: Performed By: #### L 500.2500, L100.0100 ####[facility] [address] [place], [address] Hemoglobin (Bld) [Mass/Vol] 12.7 g/dL Normal 12.0-15.0 [facility] Comment on above: Performed By: #### L 500.2500, L100.0100 ####[facility] [address] [place], [address] IG% 0.400 Normal 0.0-0.9 [facility] Comment on above: Result Comment: IG% - Immature Granulocytes (promyelocytes, myelocytes andmetamyelocytes) > 1% indicates that a LEFT SHIFT is Present. Performed By: #### L 500.2500, L100.0100 ####[facility] [address] [place], [address] Lymphocytes/100 WBC (Bld) 19.3 % Normal 19-41 [facility] Comment on above: Performed By: #### L 500.2500, L100.0100 ####[facility] [address] [place], [address] MCH (RBC) [Entitic mass] 27.4 pg Normal 27.0-32.0 [facility] Comment on above: Performed By: #### L 500.2500, L100.0100 ####[facility] [address] [place], [address] MCHC (RBC) [Mass/Vol] 31.2 g/dL Low 32-36 [facility] Comment on above: Performed By: #### L 500.2500, L100.0100 ####[facility] [address] [place], [address] MCV (RBC) [Entitic vol] 87.7 fL Normal 81-99 [facility] Comment on above: Performed By: #### L 500.2500, L100.0100 ####[facility] [address] [place], [address] Monocytes/100 WBC (Bld) 7.4 % Normal 0-10 [facility] Comment on above: Performed By: #### L 500.2500, L100.0100 ####[facility] [address] [place], [address] Neutrophils/100 WBC (Bld) 72.5 % High 47-70 [facility] Comment on above: Performed By: #### L 500.2500, L100.0100 ####[facility] [address] [place], [address] Nucleated RBC (Bld) [#/Vol] 0 10*3/uL Normal 0-5 [facility] Comment on above: Performed By: #### L 500.2500, L100.0100 ####[facility] [address] [place], [address] Platelet mean volume (Bld) [Entitic vol] 10.9 fL Normal 6.2-12.0 [facility] Comment on above: Performed By: #### L 500.2500, L100.0100 ####[facility] [address] [place], [address] Platelets (Bld) [#/Vol] 297 10*3/uL Normal 150-450 [facility] Comment on above: Performed By: #### L 500.2500, L100.0100 ####[facility] [address] [place], [address] RBC (Bld) [#/Vol] 4.64 10*6/uL Normal 4.2-5.4 [facility] Comment on above: Performed By: #### L 500.2500, L100.0100 ####[facility] [address] [place], [address] RDW SD 50.9 fl High 35.1-43.9 [facility] Comment on above: Performed By: #### L 500.2500, L100.0100 ####[facility] [address] [place], [address] WBC (Bld) [#/Vol] 11.3 10*3/uL High 4.4-11.0 [facility] Comment on above: Performed By: #### L 500.2500, L100.0100 ####[facility] [address] [place], [address] Carbon dioxide, total [Moles /volume] in Central venous bloodOrdered By: Melba Hartmann on 01-24-2025 CO2 [Moles/Vol] 23.7 mmol/L 21.0-32.0 [facility] Chloride assayOrdered By: Ewelina Hartmann on 01-24-2025 Chloride [Moles/Vol] 102 mmol/L 98-108 [facility] Discharge Instructionon 05-2 Discharge Instruction Normal [facility] Electrocardiogram reportOrde red By: Marcelina Soto on 01-24-2025 EKG study [facility] Work Phone: [phone] Eosinophil percentageOrdered By: Melba Hartmann on 01-24-2025 Eosinophils/100 WBC (Bld) 0.2 % 0-5 [facility] Erythrocyte distribution wid th ratioOrdered By: Melba Hartmann on 01-24-2025 Erythrocyte distribution width (RBC) [Ratio] 15.8 % High 11.6-14.6 [facility] Erythrocyte distribution wid th standard deviationOrdered By: Melba Hartmann on 01-24-2025 Erythrocyte distribution width (RBC) [Ratio] 50.9 fl High 35.1-43.9 [facility] Glomerular filtration rate ( GFR) estimation/1.73 sq m using serum, plasma, or whole bOrdered By: Melba Hartmann on 01-24-2025 GFR/1.73 sq M.predicted among non-blacks MDRD (S/P/Bld) [Vol rate/Area] 41 mL/min/{1.73_m2} Low >60 [facility] Glucose measurement at bedsi deOrdered By: Melba Hartmann on 01-24-2025 Glucose [Mass/Vol] 167 mg/dL High 74-106 [facility] Hematocrit Auto (Bld) [Volum e fraction]Ordered By: Melba Hartmann 01-24-2025 Hematocrit (Bld) [Volume fraction] 40.7 % 37-47 [facility] Hemoglobin measurementOrdere d By: Melba Hartmann on 01-24-2025 Hemoglobin (Bld) [Mass/Vol] 12.7 g/dL 12.0-15.0 [facility] Immature granulocytes/100 WB C Auto (Bld)Ordered By: Melba Hartmann on 01-24-2025 Immature granulocytes/100 WBC (Bld) 0.400 % 0.0-0.9 [facility] MCV (mean corpuscular volume ) determinationOrdered By: Melba Hartmann on 01-24-2025 MCV (RBC) [Entitic vol] 87.7 fL 81-99 [facility] Mean corpuscular hemoglobin (MCH) determinationOrdered By: Melba Hartmann on 01-24-2025 MCH (RBC) [Entitic mass] 27.4 pg 27.0-32.0 [facility] Monocyte percentageOrdered B y: Melba Hartmann on 01-24-2025 Monocytes/100 WBC (Bld) 7.4 % 0-10 [facility] Neutrophil percentageOrdered By: Melba Hartmann on 01-24-2025 Neutrophils/100 WBC (Bld) 72.5 % High 47-70 [facility] Platelet countOrdered By: Na ewelina Hartmann on 01-24-2025 Platelets (Bld) [#/Vol] 297 10*3/uL 150-450 [facility] Potassium measurement (mass/ volume)Ordered By: Melba Hartmann on 01-24-2025 Potassium (Unsp spec) [Mass/Vol] 3.5 mmol/L 3.3-5.1 [facility] RBC Auto (Bld) [#/Vol]Ordere d By: Melba Hartmann on 01-24-2025 RBC (Bld) [#/Vol] 4.64 10*6/uL 4.2-5.4 [facility] Serum creatinine measurement (mass/volume)Ordered By: Melba Hartmann on 01-24-2025 Creatinine [Mass/Vol] 1.31 mg/dL High 0.70-1.20 [facility] Serum glucose measurement (m ass/volume)Ordered By: Melba Hartmann 01-24-2025 Glucose [Mass/Vol] 133 mg/dL High 70-99 [facility] Serum or plasma calcium melanie urement (mass/volume)Ordered By: Melba Hartmann 01-24-2025 Calcium [Mass/Vol] 10.1 mg/dL 7.6-11.0 [facility] Serum or plasma urea nitroge n measurement (mass/volume)Ordered By: Melba Hartmann on 01-24-2025 Urea nitrogen [Mass/Vol] 46 mg/dL High 4-19 [facility] Sodium levelOrdered By: Melba Hartmann on 01-24-2025 Sodium [Moles/Vol] 138 mmol/L 133-145 [facility] White blood cell (WBC) count Ordered By: Melba Hartmann on 01-24-2025 WBC (Bld) [#/Vol] 11.3 10*3/uL High 4.4-11.0 [facility] Basic Metabolic Profile (BMP )on 01-23-2025 BUN/CRE 33.0 RATIO High 10-20 [facility] Comment on above: Performed By: #### L 100.0100, L500.2500 ####[facility] [address] [place], [address] Calcium [Mass/Vol] 10.8 mg/dL Normal 7.6-11.0 [facility] Comment on above: Performed By: #### L 100.0100, L500.2500 ####[facility] [address] [place], [address] Chloride [Moles/Vol] 98 mmol/L Normal 98-108 [facility] Comment on above: Performed By: #### L 100.0100, L500.2500 ####[facility] [address] [place], [address] CO2 [Moles/Vol] 25.4 mmol/L Normal 21.0-32.0 [facility] Comment on above: Performed By: #### L 100.0100, L500.2500 ####[facility] [address] [place], [address] Creatinine [Mass/Vol] 1.32 mg/dL High 0.70-1.20 [facility] Comment on above: Performed By: #### L 100.0100, L500.2500 ####[facility] [address] [place], [address] ECRCL 32.84 ml/min Low 50-250 [facility] Comment on above: Performed By: #### L 100.0100, L500.2500 ####[facility] [address] [place], [address] GAP 12 Normal 5-15 [facility] Comment on above: Performed By: #### L 100.0100, L500.2500 ####[facility] [address] [place], [address] GFR/1.73 sq M.predicted among non-blacks MDRD (S/P/Bld) [Vol rate/Area] 41 mL/min/{1.73_m2} Low >60 [facility] Comment on above: Result Comment: mL/m in/1.73m2 CKD-EPI Creatinine Equation (2020) Performed By: #### L 100.0100, L500.2500 ####[facility] [address] [place], [address] Glucose [Mass/Vol] 200 mg/dL High 70-99 [facility] Comment on above: Performed By: #### L 100.0100, L500.2500 ####[facility] [address] [place], [address] Potassium [Moles/Vol] 5.2 mmol/L High 3.3-5.1 [facility] Comment on above: Result Comment: Hemo lysis present, Results??could be affected.?? Performed By: #### L 100.0100, L500.2500 ####[facility] [address] [place], [address] Sodium [Moles/Vol] 135 mmol/L Normal 133-145 [facility] Comment on above: Performed By: #### L 100.0100, L500.2500 ####[facility] [address] [place], [address] Urea nitrogen [Mass/Vol] 44 mg/dL High 4-19 [facility] Comment on above: Performed By: #### L 100.0100, L500.2500 ####[facility] [address] [place], [address] Bedside Glucoseon 01-23-2025 FINGERSTICK GLU 294 mg/dL High 74-106 [facility] Comment on above: Result Comment: KATARINA GEMENT OF PATIENT CARE PER NURSING PROTOCOL Performed By: #### L 501.080 ####[facility] [address] [place], [address] FINGERSTICK GLU 314 mg/dL High 74-106 [facility] Comment on above: Result Comment: KATARINA GEMENT OF PATIENT CARE PER NURSING PROTOCOL Performed By: #### L 501.080 ####[facility] [address] [place], [address] FINGERSTICK GLU 291 mg/dL High 74-106 [facility] Comment on above: Result Comment: KATARINA GEMENT OF PATIENT CARE PER NURSING PROTOCOL Performed By: #### L 501.080 ####[facility] [address] [place], [address] FINGERSTICK GLU 214 mg/dL High 74-106 [facility] Comment on above: Result Comment: KATARINA GEMENT OF PATIENT CARE PER NURSING PROTOCOL Performed By: #### L 501.080 ####[facility] [address] [place], [address] CBC W/Diff, Automatedon 05- Absolute Lymph 0.74 X10 3/uL Low 0.83-4.51 [facility] Comment on above: Performed By: #### L 100.0100, L500.2500 ####[facility] [address] [place], [address] Absolute Neut 10.9 X10 3/uL High 2.0-7.7 [facility] Comment on above: Performed By: #### L 100.0100, L500.2500 ####[facility] [address] [place], [address] Basophils/100 WBC (Bld) 0.1 % Normal 0-1 [facility] Comment on above: Performed By: #### L 100.0100, L500.2500 ####[facility] [facility] [address] [place], [address] Eosinophils/100 WBC (Bld) 0.0 % Normal 0-5 [facility] Comment on above: Performed By: #### L 100.0100, L500.2500 ####[facility] [address] [place], [address] Erythrocyte distribution width (RBC) [Ratio] 15.8 % High 11.6-14.6 [facility] Comment on above: Performed By: #### L 100.0100, L500.2500 ####[facility] [address] [place], [address] Hematocrit (Bld) [Volume fraction] 41.8 % Normal 37-47 [facility] Comment on above: Performed By: #### L 100.0100, L500.2500 ####[facility] [address] [place], [address] Hemoglobin (Bld) [Mass/Vol] 13.1 g/dL Normal 12.0-15.0 [facility] Comment on above: Performed By: #### L 100.0100, L500.2500 ####[facility] [address] [place], [address] IG% 0.200 Normal 0.0-0.9 [facility] Comment on above: Result Comment: IG% - Immature Granulocytes (promyelocytes, myelocytes andmetamyelocytes) > 1% indicates that a LEFT SHIFT is Present. Performed By: #### L 100.0100, L500.2500 ####[facility] [address] [place], [address] Lymphocytes/100 WBC (Bld) 6.2 % Low 19-41 [facility] Comment on above: Performed By: #### L 100.0100, L500.2500 ####[facility] [address] [place], [address] MCH (RBC) [Entitic mass] 27.3 pg Normal 27.0-32.0 [facility] Comment on above: Performed By: #### L 100.0100, L500.2500 ####[facility] [address] [place], [address] MCHC (RBC) [Mass/Vol] 31.3 g/dL Low 32-36 [facility] Comment on above: Performed By: #### L 100.0100, L500.2500 ####[facility] [address] [place], [address] MCV (RBC) [Entitic vol] 87.1 fL Normal 81-99 [facility] Comment on above: Performed By: #### L 100.0100, L500.2500 ####[facility] [address] [place], [address] Monocytes/100 WBC (Bld) 2.7 % Normal 0-10 [facility] Comment on above: Performed By: #### L 100.0100, L500.2500 ####[facility] [address] [place], [address] Neutrophils/100 WBC (Bld) 90.8 % High 47-70 [facility] Comment on above: Performed By: #### L 100.0100, L500.2500 ####[facility] [address] [place], [address] Nucleated RBC (Bld) [#/Vol] 0 10*3/uL Normal 0-5 [facility] Comment on above: Performed By: #### L 100.0100, L500.2500 ####[facility] [address] [place], [address] Platelet mean volume (Bld) [Entitic vol] 11.6 fL Normal 6.2-12.0 [facility] Comment on above: Performed By: #### L 100.0100, L500.2500 ####[facility] [address] [place], [address] Platelets (Bld) [#/Vol] 322 10*3/uL Normal 150-450 [facility] Comment on above: Performed By: #### L 100.0100, L500.2500 ####[facility] [address] [place], [address] RBC (Bld) [#/Vol] 4.80 10*6/uL Normal 4.2-5.4 [facility] Comment on above: Performed By: #### L 100.0100, L500.2500 ####[facility] [address] [place], [address] RDW SD 50.2 fl High 35.1-43.9 [facility] Comment on above: Performed By: #### L 100.0100, L500.2500 ####[facility] [address] [place], [address] WBC (Bld) [#/Vol] 12.0 10*3/uL High 4.4-11.0 [facility] Comment on above: Performed By: #### L 100.0100, L500.2500 ####[facility] [address] [place], [address] Basic Metabolic Profile (BMP )on 01-22-2025 BUN/CRE 29.2 RATIO High 10-20 [facility] Comment on above: Performed By: #### L 500.2500, L100.0100 ####[facility] [address] [place], [address] Calcium [Mass/Vol] 10.2 mg/dL Normal 7.6-11.0 [facility] Comment on above: Performed By: #### L 500.2500, L100.0100 ####[facility] [address] [place], [address] Chloride [Moles/Vol] 99 mmol/L Normal 98-108 [facility] Comment on above: Performed By: #### L 500.2500, L100.0100 ####[facility] [address] [place], [address] CO2 [Moles/Vol] 27.0 mmol/L Normal 21.0-32.0 [facility] Comment on above: Performed By: #### L 500.2500, L100.0100 ####[facility] [address] [place], [address] Creatinine [Mass/Vol] 1.07 mg/dL Normal 0.70-1.20 [facility] Comment on above: Performed By: #### L 500.2500, L100.0100 ####[facility] [address] [place], [address] ECRCL 40.54 ml/min Low 50-250 [facility] Comment on above: Performed By: #### L 500.2500, L100.0100 ####[facility] [address] [place], [address] GAP 10 Normal 5-15 [facility] Comment on above: Performed By: #### L 500.2500, L100.0100 ####[facility] [address] [place], [address] GFR/1.73 sq M.predicted among non-blacks MDRD (S/P/Bld) [Vol rate/Area] 52 mL/min/{1.73_m2} Low >60 [facility] Comment on above: Result Comment: mL/m in/1.73m2 CKD-EPI Creatinine Equation (2020) Performed By: #### L 500.2500, L100.0100 ####[facility] [address] [place], [address] Glucose [Mass/Vol] 160 mg/dL High 70-99 [facility] Comment on above: Performed By: #### L 500.2500, L100.0100 ####[facility] [address] [place], [address] Potassium [Moles/Vol] 4.8 mmol/L Normal 3.3-5.1 [facility] Comment on above: Performed By: #### L 500.2500, L100.0100 ####[facility] [address] [place], [address] Sodium [Moles/Vol] 136 mmol/L Normal 133-145 [facility] Comment on above: Performed By: #### L 500.2500, L100.0100 ####[facility] [address] [place], [address] Urea nitrogen [Mass/Vol] 31 mg/dL High 4-19 [facility] Comment on above: Performed By: #### L 500.2500, L100.0100 ####[facility] [address] [place], [address] Bedside Glucoseon 01-22-2025 FINGERSTICK GLU 310 mg/dL High 74-106 [facility] Comment on above: Result Comment: KATARINA GEMENT OF PATIENT CARE PER NURSING PROTOCOL Performed By: #### L 501.080 ####[facility] [address] [place], [address] FINGERSTICK GLU 269 mg/dL High 74-106 [facility] Comment on above: Result Comment: KATARINA GEMENT OF PATIENT CARE PER NURSING PROTOCOL Performed By: #### L 501.080 ####[facility] [address] [place], [address] FINGERSTICK GLU 232 mg/dL High 74-106 [facility] Comment on above: Result Comment: KATARINA GEMENT OF PATIENT CARE PER NURSING PROTOCOL Performed By: #### L 501.080 ####[facility] [address] [place], [address] FINGERSTICK GLU 183 mg/dL High 74-106 [facility] Comment on above: Result Comment: KATARINA GEMENT OF PATIENT CARE PER NURSING PROTOCOL Performed By: #### L 501.080 ####[facility] [address] [place], [address] CBC W/Diff, Automatedon 05-2 -2024 Absolute Lymph 0.73 X10 3/uL Low 0.83-4.51 [facility] Comment on above: Performed By: #### L 500.2500, L100.0100 ####[facility] [address] [place], [address] Absolute Neut 11.7 X10 3/uL High 2.0-7.7 [facility] Comment on above: Performed By: #### L 500.2500, L100.0100 ####[facility] [address] [place], [address] Basophils/100 WBC (Bld) 0.0 % Normal 0-1 [facility] Comment on above: Performed By: #### L 500.2500, L100.0100 ####[facility] [address] [place], [address] Eosinophils/100 WBC (Bld) 0.0 % Normal 0-5 [facility] Comment on above: Performed By: #### L 500.2500, L100.0100 ####[facility] [address] [place], [address] Erythrocyte distribution width (RBC) [Ratio] 15.9 % High 11.6-14.6 [facility] Comment on above: Performed By: #### L 500.2500, L100.0100 ####[facility] [address] [place], [address] Hematocrit (Bld) [Volume fraction] 35.6 % Low 37-47 [facility] Comment on above: Performed By: #### L 500.2500, L100.0100 ####[facility] [address] [place], [address] Hemoglobin (Bld) [Mass/Vol] 11.1 g/dL Low 12.0-15.0 [facility] Comment on above: Performed By: #### L 500.2500, L100.0100 ####[facility] [address] [place], [address] IG% 0.500 Normal 0.0-0.9 [facility] Comment on above: Result Comment: IG% - Immature Granulocytes (promyelocytes, myelocytes andmetamyelocytes) > 1% indicates that a LEFT SHIFT is Present. Performed By: #### L 500.2500, L100.0100 ####[facility] [address] [place], [address] Lymphocytes/100 WBC (Bld) 5.7 % Low 19-41 [facility] Comment on above: Performed By: #### L 500.2500, L100.0100 ####[facility] [address] [place], [address] MCH (RBC) [Entitic mass] 27.3 pg Normal 27.0-32.0 [facility] Comment on above: Performed By: #### L 500.2500, L100.0100 ####[facility] [address] [place], [address] MCHC (RBC) [Mass/Vol] 31.2 g/dL Low 32-36 [facility] Comment on above: Performed By: #### L 500.2500, L100.0100 ####[facility] [address] [place], [address] MCV (RBC) [Entitic vol] 87.7 fL Normal 81-99 [facility] Comment on above: Performed By: #### L 500.2500, L100.0100 ####[facility] [address] [place], [address] Monocytes/100 WBC (Bld) 2.4 % Normal 0-10 [facility] Comment on above: Performed By: #### L 500.2500, L100.0100 ####[facility] [address] [place], [address] Neutrophils/100 WBC (Bld) 91.4 % High 47-70 [facility] Comment on above: Performed By: #### L 500.2500, L100.0100 ####[facility] [address] [place], [address] Nucleated RBC (Bld) [#/Vol] 0 10*3/uL Normal 0-5 [facility] Comment on above: Performed By: #### L 500.2500, L100.0100 ####[facility] [address] [place], [address] Platelet mean volume (Bld) [Entitic vol] 11.1 fL Normal 6.2-12.0 [facility] Comment on above: Performed By: #### L 500.2500, L100.0100 ####[facility] [address] [place], [address] Platelets (Bld) [#/Vol] 281 10*3/uL Normal 150-450 [facility] Comment on above: Performed By: #### L 500.2500, L100.0100 ####[facility] [address] [place], [address] RBC (Bld) [#/Vol] 4.06 10*6/uL Low 4.2-5.4 [facility] Comment on above: Performed By: #### L 500.2500, L100.0100 ####[facility] [address] [place], [address] RDW SD 51.3 fl High 35.1-43.9 [facility] Comment on above: Performed By: #### L 500.2500, L100.0100 ####[facility] [address] [place], [address] WBC (Bld) [#/Vol] 12.8 10*3/uL High 4.4-11.0 [facility] Comment on above: Performed By: #### L 500.2500, L100.0100 ####[facility] [address] [place], [address] Urine Cultureon 01-22-2025 URC Normal [facility] Comment on above: Performed By: #### M 100.2200 ####[facility] [address] [place], [address] Basic Metabolic Profile (BMP )on 01-21-2025 BUN/CRE 19.6 RATIO Normal 10-20 [facility] Comment on above: Performed By: #### L 503.7505, L500.2500 ####[facility] [address] [place], [address] Calcium [Mass/Vol] 9.8 mg/dL Normal 7.6-11.0 [facility] Comment on above: Performed By: #### L 503.7505, L500.2500 ####[facility] [address] [place], [address] Chloride [Moles/Vol] 99 mmol/L Normal 98-108 [facility] Comment on above: Performed By: #### L 503.7505, L500.2500 ####[facility] [address] [place], [address] CO2 [Moles/Vol] 24.3 mmol/L Normal 21.0-32.0 [facility] Comment on above: Performed By: #### L 503.7505, L500.2500 ####[facility] [address] [place], [address] Creatinine [Mass/Vol] 1.19 mg/dL Normal 0.70-1.20 [facility] Comment on above: Performed By: #### L 503.7505, L500.2500 ####[facility] [address] [place], [address] ECRCL 36.45 ml/min Low 50-250 [facility] Comment on above: Performed By: #### L 503.7505, L500.2500 ####[facility] [address] [place], [address] GAP 14 Normal 5-15 [facility] Comment on above: Performed By: #### L 503.7505, L500.2500 ####[facility] [address] [place], [address] GFR/1.73 sq M.predicted among non-blacks MDRD (S/P/Bld) [Vol rate/Area] 46 mL/min/{1.73_m2} Low >60 [facility] Comment on above: Result Comment: mL/m in/1.73m2 CKD-EPI Creatinine Equation (2020) Performed By: #### L 503.7505, L500.2500 ####[facility] [address] [place], [address] Glucose [Mass/Vol] 208 mg/dL High 70-99 [facility] Comment on above: Performed By: #### L 503.7505, L500.2500 ####[facility] [address] [place], [address] Potassium [Moles/Vol] 4.0 mmol/L Normal 3.3-5.1 [facility] Comment on above: Performed By: #### L 503.7505, L500.2500 ####[facility] [address] [place], [address] Sodium [Moles/Vol] 138 mmol/L Normal 133-145 [facility] Comment on above: Performed By: #### L 503.7505, L500.2500 ####[facility] [address] [place], [address] Urea nitrogen [Mass/Vol] 23 mg/dL High 4-19 [facility] Comment on above: Performed By: #### L 503.7505, L500.2500 ####[facility] [address] [place], [address] Bedside Glucoseon 01-21-2025 FINGERSTICK GLU 271 mg/dL High 74-106 [facility] Comment on above: Result Comment: KATARINA GEMENT OF PATIENT CARE PER NURSING PROTOCOL Performed By: #### L 501.080 ####[facility] [address] [place], [address] FINGERSTICK GLU 254 mg/dL High 74-106 [facility] Comment on above: Result Comment: KATARINA GEMENT OF PATIENT CARE PER NURSING PROTOCOL Performed By: #### L 501.080 ####[facility] [address] [place], [address] FINGERSTICK GLU 323 mg/dL High 74-106 [facility] Comment on above: Result Comment: KATARINA GEMENT OF PATIENT CARE PER NURSING PROTOCOL Performed By: #### L 501.080 ####[facility] [address] [place], [address] FINGERSTICK GLU 202 mg/dL High 74-106 [facility] Comment on above: Result Comment: KATARINA GEMENT OF PATIENT CARE PER NURSING PROTOCOL Performed By: #### L 501.080 ####[facility] [address] [place], [address] CBC W/Diff, Automatedon 05-2 Absolute Lymph 0.79 X10 3/uL Low 0.83-4.51 [facility] Comment on above: Performed By: #### L 100.0100 ####[facility] [address] [place], [address] Absolute Neut 9.1 X10 3/uL High 2.0-7.7 [facility] Comment on above: Performed By: #### L 100.0100 ####[facility] [address] [place], [address] Basophils/100 WBC (Bld) 0.0 % Normal 0-1 [facility] Comment on above: Performed By: #### L 100.0100 ####[facility] [address] [place], [address] Eosinophils/100 WBC (Bld) 0.0 % Normal 0-5 [facility] Comment on above: Performed By: #### L 100.0100 ####[facility] [address] [place], [address] Erythrocyte distribution width (RBC) [Ratio] 16.0 % High 11.6-14.6 [facility] Comment on above: Performed By: #### L 100.0100 ####[facility] [address] [place], [address] Hematocrit (Bld) [Volume fraction] 35.0 % Low 37-47 [facility] Comment on above: Performed By: #### L 100.0100 ####[facility] [address] [place], [address] Hemoglobin (Bld) [Mass/Vol] 10.8 g/dL Low 12.0-15.0 [facility] Comment on above: Performed By: #### L 100.0100 ####[facility] [address] [place], [address] IG% 0.400 Normal 0.0-0.9 [facility] Comment on above: Result Comment: IG% - Immature Granulocytes (promyelocytes, myelocytes andmetamyelocytes) > 1% indicates that a LEFT SHIFT is Present. Performed By: #### L 100.0100 ####[facility] [address] [place], [address] Lymphocytes/100 WBC (Bld) 7.7 % Low 19-41 [facility] Comment on above: Performed By: #### L 100.0100 ####[facility] [address] [place], [address] MCH (RBC) [Entitic mass] 27.4 pg Normal 27.0-32.0 [facility] Comment on above: Performed By: #### L 100.0100 ####[facility] [address] [place], [address] MCHC (RBC) [Mass/Vol] 30.9 g/dL Low 32-36 [facility] Comment on above: Performed By: #### L 100.0100 ####[facility] [address] [place], [address] MCV (RBC) [Entitic vol] 88.8 fL Normal 81-99 [facility] Comment on above: Performed By: #### L 100.0100 ####[facility] [address] [place], [address] Monocytes/100 WBC (Bld) 3.5 % Normal 0-10 [facility] Comment on above: Performed By: #### L 100.0100 ####[facility] [address] [place], [address] Neutrophils/100 WBC (Bld) 88.4 % High 47-70 [facility] Comment on above: Performed By: #### L 100.0100 ####[facility] [address] [place], [address] Nucleated RBC (Bld) [#/Vol] 0 10*3/uL Normal 0-5 [facility] Comment on above: Performed By: #### L 100.0100 ####[facility] [address] [place], [address] Platelet mean volume (Bld) [Entitic vol] 11.0 fL Normal 6.2-12.0 [facility] Comment on above: Performed By: #### L 100.0100 ####[facility] [address] [place], [address] Platelets (Bld) [#/Vol] 245 10*3/uL Normal 150-450 [facility] Comment on above: Performed By: #### L 100.0100 ####[facility] [address] [place], [address] RBC (Bld) [#/Vol] 3.94 10*6/uL Low 4.2-5.4 [facility] Comment on above: Performed By: #### L 100.0100 ####[facility] [address] [place], [address] RDW SD 51.8 fl High 35.1-43.9 [facility] Comment on above: Performed By: #### L 100.0100 ####[facility] [address] [place], [address] WBC (Bld) [#/Vol] 10.3 10*3/uL Normal 4.4-11.0 [facility] Comment on above: Performed By: #### L 100.0100 ####[facility] [address] [place], [address] Chest 1 View (Portable)on Chest 1 View (Portable) Normal [facility] L503.7505on 01-21-2025 Natriuretic peptide B (Bld) [Mass/Vol] 66321 pg/mL High <=1800 [facility] Comment on above: Result Comment: Hear t Failure Unlikely: < 300 pg/mLHeart Failure Likely< 50 Years: > 450 pg/mL50-75 Years: > 900 pg/mL>75 Years: > 1800 pg/mL Performed By: #### L 503.7505, L500.2500 ####[facility] [address] [place], [address] Natriuretic peptide.B prohor hayley N-Terminal [Mass/volume] in Serum or PlasmaOrdered By: Sandeep Marie on 01-21-2025 Natriuretic peptide.B prohormone N-Terminal [Mass/Vol] 14627 pg/mL High <1800 [facility] 12 Lead EKGon 01-20-2025 12 Lead EKG Normal [facility] Activated partial thrombopla stin time (aPTT) in platelet poor plasma by coagulation aOrdered By: Jeevan Yoder on 01-20-2025 aPTT Coag (PPP) [Time] 26.9 s 24.1-36.2 [place] Assessment of wrist artery p atency prior to arterial punctureOrdered By: Lucio Borden on 01-20-2025 Arterial patency Wrist artery --pre arterial puncture Positive [facility] Bedside Glucoseon 01-20-2025 FINGERSTICK GLU 265 mg/dL High 74-106 [facility] Comment on above: Result Comment: KATARINA GEMENT OF PATIENT CARE PER NURSING PROTOCOL Performed By: #### L 501.080 ####[facility] [address] [place], [address] FINGERSTICK GLU 389 mg/dL High 74-106 [facility] Comment on above: Result Comment: KATARINA GEMENT OF PATIENT CARE PER NURSING PROTOCOL Performed By: #### L 501.080 ####[facility] [address] [place], [address] FINGERSTICK GLU 361 mg/dL High 74-106 [facility] Comment on above: Result Comment: KATARINA GEMENT OF PATIENT CARE PER NURSING PROTOCOL Performed By: #### L 501.080 ####[facility] [address] [place], [address] FINGERSTICK GLU 338 mg/dL High 74-106 [facility] Comment on above: Result Comment: KATARINA GEMENT OF PATIENT CARE PER NURSING PROTOCOL Performed By: #### L 501.080 ####[facility] [address] [place], [address] Bilirubin Test strip Ql (U)O rdered By: Jeevan Yoder on 01-20-2025 Bilirubin Ql (U) Negative Negative [facility] Bilirubin, totalOrdered By: Jeevan Yoder on 01-20-2025 Bilirubin [Mass/Vol] 0.26 mg/dL 0.00-1.30 [facility] TEST Positive Normal [facility] Comment on above: Performed By: #### L 9000.0800 ####[facility] [address] [place], [address] Base excess Calc (Bld) [Moles/Vol] 10 mmol/L High -2 to +2 [facility] Comment on above: Performed By: #### L 9000.0800 ####[facility] [address] [place], [address] Blood Gas Type ART Normal [facility] Comment on above: Performed By: #### L 9000.0800 ####[facility] [address] [place], [address] CO2 [Moles/Vol] 37 mmol/L Normal [facility] Comment on above: Performed By: #### L 9000.0800 ####[facility] [address] [place], [address] FI02 30.0 Normal [facility] Comment on above: Performed By: #### L 9000.0800 ####[facility] [address] [place], [address] HCO3 (Bld) [Moles/Vol] 35.5 mmol/L High 22-26 [facility] Comment on above: Performed By: #### L 9000.0800 ####[facility] [address] [place], [address] Normal [facility] Comment on above: Performed By: #### L 9000.0800 ####[facility] [address] [place], [address] O2 Delivery Dev BiPAP Normal [facility] Comment on above: Performed By: #### L 9000.0800 ####[facility] [address] [place], [address] pCO2 59.4 mmHg High 35-45 [facility] Comment on above: Performed By: #### L 0.0800 ####[facility] [address] [place], [address] PEEP 8 Normal [facility] Comment on above: Performed By: #### L 9000.0800 ####[facility] [address] [place], [address] pH (Bld) 7.38 [pH] Normal 7.35-7.45 [facility] Comment on above: Performed By: #### L 8999.0800 ####[facility] [address] [place], [address] PO2 21 mmHG Invalid Interpretation Code 75-100 [facility] Comment on above: Performed By: #### L 900.0800 ####[facility] [address] [place], [address] Read Back By Yes Normal [facility] Comment on above: Performed By: #### L 0.0800 ####[facility] [address] [place], [address] Results To tereletsky Normal [facility] Comment on above: Performed By: #### L 9000.0800 ####[facility] [address] [place], [address] RR 14 Normal [facility] Comment on above: Performed By: #### L 9000.0800 ####[facility] [address] [place], [address] SITE R Radial Normal [facility] Comment on above: Performed By: #### L 9000.0800 ####[facility] [address] [place], [address] SO2 32 Low 95-99 [facility] Comment on above: Performed By: #### L 9000.0800 ####[facility] [address] [place], [address] Time Given 16:55:40 [facility] Comment on above: Performed By: #### L 9000.0800 ####[facility] [address] [place], [address] Vt 500.0 mL Normal [facility] Comment on above: Performed By: #### L 9000.0800 ####[facility] [address] [place], [address] BARON TEST Positive Normal [facility] Comment on above: Performed By: #### L 9000.0800 ####[facility] [address] [place], [address] Base excess Calc (Bld) [Moles/Vol] 5 mmol/L High -2 to +2 [facility] Comment on above: Performed By: #### L 9000.0800 ####[facility] [address] [place], [address] Blood Gas Type ART Normal [facility] Comment on above: Performed By: #### L 9000.0800 ####[facility] [address] [place], [address] CO2 [Moles/Vol] 33 mmol/L [facility] Comment on above: Performed By: #### L 9000.0800 ####[facility] [address] [place], [address] FI02 30.0 [facility] Comment on above: Performed By: #### L 9000.0800 ####[facility] [address] [place], [address] HCO3 (Bld) [Moles/Vol] 30.8 mmol/L High 22-26 [facility] Comment on above: Performed By: #### L 9000.0800 ####[facility] [address] [place], [address] Mode Not entered [facility] Comment on above: Performed By: #### L 9000.0800 ####[facility] [address] [place], [address] O2 Delivery Dev BiPAP [facility] Comment on above: Performed By: #### L 9000.0800 ####[facility] [address] [place], [address] pCO2 56.2 mmHg High 35-45 [facility] Comment on above: Performed By: #### L 9000.0800 ####[facility] [address] [place], [address] PEEP 8 Normal [facility] Comment on above: Performed By: #### L 9000.0800 ####[facility] [address] [place], [address] pH (Bld) 7.35 [pH] Normal 7.35-7.45 [facility] Comment on above: Performed By: #### L 9000.0800 ####[facility] [address] [place], [address] PO2 37 mmHG Invalid Interpretation Code 75-100 [facility] Comment on above: Performed By: #### L 0.0800 ####[facility] [address] [place], [address] Read Back By Yes Normal [facility] Comment on above: Performed By: #### L 0.0800 ####[facility] [address] [place], [address] RR 14 Normal [facility] Comment on above: Performed By: #### L 0.0800 ####[facility] [address] [place], [address] SITE R Radial Normal [facility] Comment on above: Performed By: #### L 0.0800 ####[facility] [address] [place], [address] SO2 66 Low 95-99 [facility] Comment on above: Performed By: #### L 8999.0800 ####[facility] [address] [place], [address] Vt 500.0 mL Normal [facility] Comment on above: Performed By: #### L 0.0800 ####[facility] [address] [place], [address] BARON TEST Positive Normal [facility] Comment on above: Performed By: #### L 9000.0800 ####[facility] [address] [place], [address] Base excess Calc (Bld) [Moles/Vol] 5 mmol/L High -2 to +2 [facility] Comment on above: Performed By: #### L 9000.0800 ####[facility] [address] [place], [address] Blood Gas Type ART Normal [facility] Comment on above: Performed By: #### L 8999.0800 ####[facility] [address] [place], [address] CO2 [Moles/Vol] 34 mmol/L Normal [facility] Comment on above: Performed By: #### L 8999.0800 ####[facility] [address] [place], [address] Comment Normal [facility] Comment on above: Result Comment: AVAP S 500vt 14rr 100% +8 maxP=26 minP=18 Performed By: #### L 0.0800 ####[facility] [address] [place], [address] FI02 100.0 Normal [facility] Comment on above: Performed By: #### L 0.0800 ####[facility] [address] [place], [address] HCO3 (Bld) [Moles/Vol] 31.6 mmol/L High 22-26 [facility] Comment on above: Performed By: #### L 8999.0800 ####[facility] [address] [place], [address] Mode Not entered Normal [facility] Comment on above: Performed By: #### L 0.0800 ####[facility] [address] [place], [address] O2 Delivery Dev BiPAP Normal [facility] Comment on above: Performed By: #### L 8999.0800 ####[facility] [address] [place], [address] pCO2 63.0 mmHg High 35-45 [facility] Comment on above: Performed By: #### L 0.0800 ####[facility] [address] [place], [address] pH (Bld) 7.31 [pH] Low 7.35-7.45 [facility] Comment on above: Performed By: #### L 9000.0800 ####[facility] [address] [place], [address] PO2 83 mmHG Normal 75-100 [facility] Comment on above: Performed By: #### L 9000.0800 ####[facility] [address] [place], [address] SITE R Radial Normal [facility] Comment on above: Performed By: #### L 9000.0800 ####[facility] [address] [place], [address] SO2 95 Normal 95-99 [facility] Comment on above: Performed By: #### L 9000.0800 ####[facility] [address] [place], [address] Blood base excess determinat ionOrdered By: Lucio Borden on 01-20-2025 Base excess Calc (BldV) [Moles/Vol] 10 mmol/L High --2 [facility] Blood bicarbonate measuremen tOrdered By: Lucio Borden on 01-20-2025 HCO3 (Bld) [Moles/Vol] 35.5 mmol/L High 22-26 [facility] Blood cultureOrdered By: Mikey Marie on 01-20-2025 Bacteria identified Cx Nom (Bld) No growth in 5 days. [facility] Blood cultureOrdered By: Maeve Yoder on 01-20-2025 Bacteria identified Cx Nom (Bld) No growth in 5 days. [facility] Bacteria identified Cx Nom (Bld) No growth in 5 days. [facility] CBC W/Diff, Automatedon 12-30 Absolute Lymph 4.62 X10 3/uL High 0.83-4.51 [facility] Comment on above: Performed By: #### L 300.4310, L100.0100, L300.3900, L501.4021, L503.6005, L500.4050, M200.1000 ####[facility] [address] [place], [address] Absolute Neut 8.4 X10 3/uL High 2.0-7.7 [facility] Comment on above: Performed By: #### L 300.4310, L100.0100, L300.3900, L501.4021, L503.6005, L500.4050, M200.1000 ####[facility] [address] [place], [address] Basophils/100 WBC (Bld) 0.6 % Normal 0-1 [facility] Comment on above: Performed By: #### L 300.4310, L100.0100, L300.3900, L501.4021, L503.6005, L500.4050, M200.1000 ####[facility] [address] [place], [address] Eosinophils/100 WBC (Bld) 0.8 % Normal 0-5 [facility] Comment on above: Performed By: #### L 300.4310, L100.0100, L300.3900, L501.4021, L503.6005, L500.4050, M200.1000 ####[facility] [address] [place], [address] Erythrocyte distribution width (RBC) [Ratio] 16.0 % High 11.6-14.6 [facility] Comment on above: Performed By: #### L 300.4310, L100.0100, L300.3900, L501.4021, L503.6005, L500.4050, M200.1000 ####[facility] [address] [place], [address] Hematocrit (Bld) [Volume fraction] 39.6 % Normal 37-47 [facility] Comment on above: Performed By: #### L 300.4310, L100.0100, L300.3900, L501.4021, L503.6005, L500.4050, M200.1000 ####[facility] [address], [address] Hemoglobin (Bld) [Mass/Vol] 12.1 g/dL Normal 12.0-15.0 [facility] Comment on above: Performed By: #### L 300.4310, L100.0100, L300.3900, L501.4021, L503.6005, L500.4050, M200.1000 ####[facility] [address] [facility], [address] IG% 0.500 Normal 0.0-0.9 [facility] Comment on above: Result Comment: IG% - Immature Granulocytes (promyelocytes, myelocytes andmetamyelocytes) > 1% indicates that a LEFT SHIFT is Present. Performed By: #### L 300.4310, L100.0100, L300.3900, L501.4021, L503.6005, L500.4050, M200.1000 ####[facility] [address] [facility], [address] Lymphocytes/100 WBC (Bld) 32.0 % Normal 19-41 [facility] Comment on above: Performed By: #### L 300.4310, L100.0100, L300.3900, L501.4021, L503.6005, L500.4050, M200.1000 ####[facility] [address] [facility] [place], [address] MCH (RBC) [Entitic mass] 27.4 pg Normal 27.0-32.0 [facility] Comment on above: Performed By: #### L 300.4310, L100.0100, L300.3900, L501.4021, L503.6005, L500.4050, M200.1000 ####[facility] [address] [place], [address] MCHC (RBC) [Mass/Vol] 30.6 g/dL Low 32-36 [facility] Comment on above: Performed By: #### L 300.4310, L100.0100, L300.3900, L501.4021, L503.6005, L500.4050, M200.1000 ####[facility] [address] [place], [address] MCV (RBC) [Entitic vol] 89.8 fL Normal 81-99 [facility] Comment on above: Performed By: #### L 300.4310, L100.0100, L300.3900, L501.4021, L503.6005, L500.4050, M200.1000 ####[facility] [address] [place], [address] Monocytes/100 WBC (Bld) 7.7 % Normal 0-10 [facility] Comment on above: Performed By: #### L 300.4310, L100.0100, L300.3900, L501.4021, L503.6005, L500.4050, M200.1000 ####[facility] [address] [place], [address] Neutrophils/100 WBC (Bld) 58.4 % Normal 47-70 [facility] Comment on above: Performed By: #### L 300.4310, L100.0100, L300.3900, L501.4021, L503.6005, L500.4050, M200.1000 ####[facility] [address] [place], [address] Nucleated RBC (Bld) [#/Vol] 0 10*3/uL Normal 0-5 [facility] Comment on above: Performed By: #### L 300.4310, L100.0100, L300.3900, L501.4021, L503.6005, L500.4050, M200.1000 ####[facility] [address] [place], [address] Platelet mean volume (Bld) [Entitic vol] 12.0 fL Normal 6.2-12.0 [facility] Comment on above: Performed By: #### L 300.4310, L100.0100, L300.3900, L501.4021, L503.6005, L500.4050, M200.1000 ####[facility] [address] [place], [address] Platelets (Bld) [#/Vol] 287 10*3/uL Normal 150-450 [facility] Comment on above: Performed By: #### L 300.4310, L100.0100, L300.3900, L501.4021, L503.6005, L500.4050, M200.1000 ####[facility] [address] [place], [address] RBC (Bld) [#/Vol] 4.41 10*6/uL Normal 4.2-5.4 [facility] Comment on above: Performed By: #### L 300.4310, L100.0100, L300.3900, L501.4021, L503.6005, L500.4050, M200.1000 ####[facility] [address] [place], [address] RDW SD 52.7 fl High 35.1-43.9 [facility] Comment on above: Performed By: #### L 300.4310, L100.0100, L300.3900, L501.4021, L503.6005, L500.4050, M200.1000 ####[facility] [address] [place], [address] WBC (Bld) [#/Vol] 14.4 10*3/uL High 4.4-11.0 [facility] Comment on above: Performed By: #### L 300.4310, L100.0100, L300.3900, L501.4021, L503.6005, L500.4050, M200.1000 ####[facility] [address] [place], [address] CTA Chest W/WO Contraston CTA Chest W/WO Contrast Normal [facility] Calculated very low density lipoprotein (VLDL) cholesterol measurementOrdered By: Sandeep Marie on 01-20-2025 Calculated very low density lipoprotein (VLDL) cholesterol measurement 12 mg/dL 5-40 [facility] Comprehensive Metabolic Prof ilon 01-20-2025 Albumin [Mass/Vol] 3.6 g/dL Normal 3.4-4.8 [facility] Comment on above: Performed By: #### L 300.4310, L100.0100, L300.3900, L501.4021, L503.6005, L500.4050, M200.1000 ####[facility] [address] [place], [place], [address] Albumin/Globulin [Mass ratio] 0.9 {ratio} Normal 0.9-2.4 [facility] Comment on above: Performed By: #### L 300.4310, L100.0100, L300.3900, L501.4021, L503.6005, L500.4050, M200.1000 ####[facility] [address] [place], [address] ALK PHOS 143 U/L High 35-104 [facility] Comment on above: Performed By: #### L 300.4310, L100.0100, L300.3900, L501.4021, L503.6005, L500.4050, M200.1000 ####[facility] [address] [place], [address] ALT [Catalytic activity/Vol] 36 U/L High <=34 [facility] Comment on above: Performed By: #### L 300.4310, L100.0100, L300.3900, L501.4021, L503.6005, L500.4050, M200.1000 ####[facility] [address] [place], [address] AST [Catalytic activity/Vol] 81 U/L High <=31 [facility] Comment on above: Result Comment: Hemo lysis present, Results??could be affected.?? Performed By: #### L 300.4310, L100.0100, L300.3900, L501.4021, L503.6005, L500.4050, M200.1000 ####[facility] [address] [place], [address] Bilirubin [Mass/Vol] 0.26 mg/dL Normal 0.00-1.30 [facility] Comment on above: Performed By: #### L 300.4310, L100.0100, L300.3900, L501.4021, L503.6005, L500.4050, M200.1000 ####[facility] [address] [place], [address] BUN/CRE 8.1 RATIO Low 10-20 [facility] Comment on above: Performed By: #### L 300.4310, L100.0100, L300.3900, L501.4021, L503.6005, L500.4050, M200.1000 ####[facility] [address] [place], [address] Calcium [Mass/Vol] 10.2 mg/dL Normal 7.6-11.0 [facility] Comment on above: Performed By: #### L 300.4310, L100.0100, L300.3900, L501.4021, L503.6005, L500.4050, M200.1000 ####[facility] [address] [place], [address] Chloride [Moles/Vol] 97 mmol/L Low 98-108 [facility] Comment on above: Performed By: #### L 300.4310, L100.0100, L300.3900, L501.4021, L503.6005, L500.4050, M200.1000 ####[facility] [address] [place], [address] CO2 [Moles/Vol] 25.7 mmol/L Normal 21.0-32.0 [facility] Comment on above: Performed By: #### L 300.4310, L100.0100, L300.3900, L501.4021, L503.6005, L500.4050, M200.1000 ####[facility] [address] [place], [address] Creatinine [Mass/Vol] 1.24 mg/dL High 0.70-1.20 [facility] Comment on above: Performed By: #### L 300.4310, L100.0100, L300.3900, L501.4021, L503.6005, L500.4050, M200.1000 ####[facility] [address] [place], [address] ECRCL 34.84 ml/min Low 50-250 [facility] Comment on above: Performed By: #### L 300.4310, L100.0100, L300.3900, L501.4021, L503.6005, L500.4050, M200.1000 ####[facility] [address] [place], [address] GAP 15 Normal 5-15 [facility] Comment on above: Performed By: #### L 300.4310, L100.0100, L300.3900, L501.4021, L503.6005, L500.4050, M200.1000 ####[facility] [address] [place], [address] GFR/1.73 sq M.predicted among non-blacks MDRD (S/P/Bld) [Vol rate/Area] 44 mL/min/{1.73_m2} Low >60 [facility] Comment on above: Result Comment: mL/m in/1.73m2 CKD-EPI Creatinine Equation (2020) Performed By: #### L 300.4310, L100.0100, L300.3900, L501.4021, L503.6005, L500.4050, M200.1000 ####[facility] [address] [place], [address] Globulin (S) [Mass/Vol] 4.1 g/dL Normal 2.2-4.2 [facility] Comment on above: Performed By: #### L 300.4310, L100.0100, L300.3900, L501.4021, L503.6005, L500.4050, M200.1000 ####[facility] [address] [place], [address] Glucose [Mass/Vol] 347 mg/dL High 70-99 [facility] Comment on above: Performed By: #### L 300.4310, L100.0100, L300.3900, L501.4021, L503.6005, L500.4050, M200.1000 ####[facility] [address] [place], [address] Potassium [Moles/Vol] 4.0 mmol/L Normal 3.3-5.1 [facility] Comment on above: Result Comment: Hemo lysis present, Results??could be affected.?? Performed By: #### L 300.4310, L100.0100, L300.3900, L501.4021, L503.6005, L500.4050, M200.1000 ####[facility] [address] [place], [address] Sodium [Moles/Vol] 137 mmol/L Normal 133-145 [facility] Comment on above: Performed By: #### L 300.4310, L100.0100, L300.3900, L501.4021, L503.6005, L500.4050, M200.1000 ####[facility] [address] [place], [address] T PROT 7.6 g/dL Normal 5.9-8.4 [facility] Comment on above: Performed By: #### L 300.4310, L100.0100, L300.3900, L501.4021, L503.6005, L500.4050, M200.1000 ####[facility] [address], [address] Urea nitrogen [Mass/Vol] 10 mg/dL Normal 4-19 [facility] Comment on above: Performed By: #### L 300.4310, L100.0100, L300.3900, L501.4021, L503.6005, L500.4050, M200.1000 ####[facility] [address] [place], [address] Echo Completeon 01-20-2025 Echo Complete Normal [facility] Echocardiogram study reportO rdered By: Marcelina Soto on 01-20-2025 Study report [facility] Work Phone: Emergency Department Summary on 01-20-2025 Emergency Department Summary Normal [facility] H AND P Exam - [place] 01-20-2025 H&P Exam - Hospitalist Normal [place] Hemoglobin A1con 01-20-2025 HbA1c (Bld) [Mass fraction] 10.6 % High <=5.6 [facility] Comment on above: Result Comment: Norm al < 5.7 % Prediabetic 5.7 - 6.4 % Diabetic >or= 6.5 % Please note range changes. Performed By: #### L 501.9985 ####[facility] [address] [place], [address] Hemoglobin A1c percentageOrd ered By: Sandeep Marie on 01-20-2025 HbA1c (Bld) [Mass fraction] 10.6 % High <5.7 [facility] Ketones Test strip Ql (U)Ord ered By: Jeevan Yoder on 01-20-2025 Ketones Ql (U) Negative Negative [facility] L499.0042on 01-20-2025 Trop T High Sen 71 ng/L Invalid Interpretation Code <=14 [facility] Comment on above: Result Comment: Crit ical Result(s) Called at:0237 by: EMA PATEL.??Results read back by same. Performed By: #### L 499.0042 ####[facility] [address] [place], [address] L499.0043on 01-20-2025 Trop T High Sen 94 ng/L Invalid Interpretation Code <=14 [facility] Comment on above: Order Comment: PT SUAREZ S NOT MADE IT TO ROOM YET FROM ER OF 409 Result Comment: Crit ical Result(s) Called at 0548: by: SHARONA ALVAREZ. ??Results read back by same. Performed By: #### L 499.0043 ####[facility] [address] [place], [address] L501.4021on 01-20-2025 Trop T High Sen 52 ng/L High <=14 [facility] Comment on above: Performed By: #### L 300.4310, L100.0100, L300.3900, L501.4021, L503.6005, L500.4050, M200.1000 ####[facility] [address] [place], [address] L503.7505on 01-20-2025 Natriuretic peptide B (Bld) [Mass/Vol] 9449 pg/mL High <=1800 [facility] Comment on above: Result Comment: Hear t Failure Unlikely: < 300 pg/mLHeart Failure Likely< 50 Years: > 450 pg/mL50-75 Years: > 900 pg/mL>75 Years: > 1800 pg/mL Performed By: #### L 501.9520, L503.7505, L500.4100 ####[facility] [address] [place], [address] LDL calc ser/plasOrdered By: Sandeep Marie on 01-20-2025 Cholesterol in LDL [Mass/Vol] 79 mg/dL [facility] Lactic Acidon 01-20-2025 Lactate [Moles/Vol] 1.7 mmol/L Normal 0.0-2.0 [facility] Comment on above: Performed By: #### L 503.6005 ####[facility] [address] [place], [address] Lactate [Moles/Vol] 2.0 mmol/L Normal 0.0-2.0 [facility] Comment on above: Order Comment: Comme nts: if result >2, system reflex orders 2nd test @ 4hrsY Result Comment: Crit ical Result(s) Called at 0615: by: SHARONA ALVAREZ. ??Results read back by same. Performed By: #### M 200.1000, L503.6005 ####[facility] [address] [place], [address] Lactate [Moles/Vol] 3.4 mmol/L Invalid Interpretation Code 0.0-2.0 [facility] Comment on above: Order Comment: Y Result Comment: Crit ical Result(s) Called at: 0116 by: EMA BOWEN TO [facility].??Results read back by same. Performed By: #### L 300.4310, L100.0100, L300.3900, L501.4021, L503.6005, L500.4050, M200.1000 ####[facility] [address] [place], [address] Legionella Antigen Urineon 0 01-20-2025 LEGU Normal [facility] Comment on above: Performed By: #### M 300.9080, M300.4500 ####[facility] [address] [place], [address] Lipid Profileon 01-20-2025 CHOL:HDL 2.89 Normal [facility] Comment on above: Performed By: #### L 501.9520, L503.7505, L500.4100 ####[facility] [address] [place], [address] Cholesterol [Mass/Vol] 140 mg/dL Normal <=200 [place] Comment on above: Result Comment: Chol esterol level, Desirable <200 mg/dLBorderline high cholesterol 200-239 mg/dLHigh cholesterol >=240 mg/dLRecommendations of the NCEP Adult Treatment Panel for thefollowing risk-cutoff thresholds for the [place] [facility]. Performed By: #### L 501.9520, L503.7505, L500.4100 ####[facility] [address] [place], [address] Cholesterol in HDL [Mass/Vol] 49 mg/dL Normal [facility] Comment on above: Result Comment: Camelia onal Cholesterol Education Program (NCEP) guidelines:<40 mg/dL: Low HDL-cholesterol (major risk factor for CHD)>= 60 mg/dL: High HDL-cholesterol (negative risk factor forCHD)HDL-cholesterol is affected by a number of factors, e.g.smoking, exercise, hormones, sex and age. Performed By: #### L 501.9520, L503.7505, L500.4100 ####[facility] [address] [place], [address] Cholesterol in LDL [Mass/Vol] 79 mg/dL Normal [facility] Comment on above: Result Comment: Bord uhxakg=873-352 mg/dL Higher Cuok=007 mg/dL or greater Performed By: #### L 501.9520, L503.7505, L500.4100 ####[facility] [address] [place], [address] Cholesterol in VLDL [Mass/Vol] 12 mg/dL Normal 5-40 [facility] Comment on above: Performed By: #### L 501.9520, L503.7505, L500.4100 ####[facility] [address] [place], [address] Triglyceride [Mass/Vol] 62 mg/dL Normal [facility] Comment on above: Result Comment: The drugs N-Acetylcysteine and Metamizole may falselydepress this assay.Normal range: <150 mg/dLBorderline High: 150-199 mg/dLHigh: 200-499 mg/dLVery High: >500 mg/dL Performed By: #### L 501.9520, L503.7505, L500.4100 ####[facility] [address] [place], [address] Measurement, pHOrdered By: Connor Borden on 01-20-2025 pH (Unsp spec) 7.38 [pH] 7.35-7.45 [facility] Mucus LM Ql (Urine sed)Order ed By: Jeevan Yoder on 01-20-2025 Mucus Ql (Urine sed) 0 SEEN /hpf [facility] Nitrite Test strip Ql (U)Ord ered By: Jeevan Yoder on 01-20-2025 Nitrite Ql (U) Negative Negative [facility] No Panel InformationOrdered By: Lucio Borden on 01-20-2025 ART [facility] R Radial [facility] ST [facility] BiPAP [facility] 500.0 mL [facility] 14 [facility] 8 [facility] 16:55:40 [facility] Yes [facility] No Panel InformationOrdered By: Jeevan Yoder on 01-20-2025 See comment [facility] 81 U/L High <32 [facility] Partial Thromboplast Timeon 01-20-2025 aPTT Coag (Bld) [Time] 26.9 s Normal 24.1-36.2 [place] Comment on above: Performed By: #### L 300.4310, L100.0100, L300.3900, L501.4021, L503.6005, L500.4050, M200.1000 ####[facility] [address] [place], [address] Protein Test strip Ql (U)Ord ered By: Jeevan Yoder on 01-20-2025 Protein Ql (U) 100 mg/dl High Negative [facility] Prothrombin Time w/INRon INR Coag (PPP) [Relative time] 1.1 {INR} Normal [facility] Comment on above: Performed By: #### L 300.4310, L100.0100, L300.3900, L501.4021, L503.6005, L500.4050, M200.1000 ####[facility] [address] [place], [address] PT Coag (PPP) [Time] 14.6 s Normal 11.7-14.9 [facility] Comment on above: Performed By: #### L 300.4310, L100.0100, L300.3900, L501.4021, L503.6005, L500.4050, M200.1000 ####[facility] [address] [place], [address] Prothrombin timeOrdered By: Jeevan Yoder on 01-20-2025 PT Coag (PPP) [Time] 14.6 s 11.7-14.9 [facility] RESPIRATORY PANEL MOLECULARo n 01-20-2025 RP PANEL Normal [facility] Comment on above: Performed By: #### M 100.638 ####[facility] [address] [place], [place], [id number] Respiratory pathogens detect ion panel by molecular detection methodOrdered By: Sandeep Marie on 01-20-2025 Respiratory pathogens DNA and RNA panel BEBETO+probe (Resp) [facility] Serum globulin measurementOr dered By: Jeevan Yoder on 01-20-2025 Globulin (S) [Mass/Vol] 4.1 g/dL 2.2-4.2 [facility] Serum or plasma alanine kelley otransferase (ALT) measurementOrdered By: Jeevan Yoder on 01-20-2025 ALT [Catalytic activity/Vol] 36 U/L High <35 [facility] Serum or plasma albumin melanie urement (mass/volume)Ordered By: Jeevan Yoder on 01-20-2025 Albumin [Mass/Vol] 3.6 g/dL 3.4-4.8 [facility] Serum or plasma albumin/glob ulin mass ratioOrdered By: Jeevan Yoder on 01-20-2025 Albumin/Globulin [Mass ratio] 0.9 {ratio} 0.9-2.4 [facility] Serum or plasma alkaline lissa sphatase measurementOrdered By: Jeevan Yoder on 01-20-2025 ALP [Catalytic activity/Vol] 143 U/L High 35-104 [facility] Serum or plasma cholesterol in HDL measurement (mass/volume)Ordered By: Sandeep Marie on 01-20-2025 Cholesterol in HDL [Mass/Vol] 49 mg/dL >40 [facility] Serum or plasma cholesterol measurement (mass/volume)Ordered By: Sandeep Marie on 01-20-2025 Cholesterol [Mass/Vol] 140 mg/dL <201 [place] Squamous epithelial cells de tection in urine sediment by light microscopyOrdered By: Jeevan Yoder on 01-20-2025 Epithelial cells.squamous LM Ql (Urine sed) 5-10 SEEN /hpf 5-10 [facility] Strep pneumoniae Antig(UR,CS F)on 01-20-2025 STPAG Normal [facility] Comment on above: Performed By: #### M 300.5249, M300.0994 ####[facility] [address] [place], [address] TSH DL <= 0.005 mIU/L QnOrde red By: Sandeep Marie on 05-23-2025 TSH Qn 0.492 uIU/mL 0.300-4.200 [facility] Thyroid Stim Hormone (TSH)on 01-20-2025 TSH 0.492 uIU/mL Normal 0.300-4.200 [facility] Comment on above: Performed By: #### L 501.9520, L503.7505, L500.4100 ####[facility] [address] [place], [place], [id number] Total carbon dioxide measure mentOrdered By: Lucio Borden on 01-20-2025 CO2 [Moles/Vol] 37 mmol/L [facility] Total proteinOrdered By: Maeve Yoder on 01-20-2025 Protein [Mass/Vol] 7.6 g/dL 5.9-8.4 [facility] Troponin T.cardiac [Mass/vol ume] in Serum or Plasma by High sensitivity methodOrdered By: Jeevan Yoder on 01-20-2025 Troponin T.cardiac High sensitivity method [Mass/Vol] 94 ng/L High <14 [facility] Troponin T.cardiac High sensitivity method [Mass/Vol] 71 ng/L High <14 [facility] Troponin T.cardiac High sensitivity method [Mass/Vol] 52 ng/L High <14 [facility] Urinalysis, Completeon 01-20 EPI,SQUAMOUS 5-10 SEEN Normal 5-10 [facility] Comment on above: Order Comment: COLLE CTOR TO SPECIFY Performed By: #### L 400.0001 ####[facility] [address] [place], [address] RBC 5-10 SEEN Normal 0-5 [facility] Comment on above: Order Comment: COLLE CTOR TO SPECIFY Performed By: #### L 400.0001 ####[facility] [address] [place], [address] WBC 0-5 SEEN Normal 0-5 [facility] Comment on above: Order Comment: COLLE CTOR TO SPECIFY Performed By: #### L 400.0001 ####[facility] [address] [place], [address] BACTERIA 0 SEEN Normal None Seen [facility] Comment on above: Order Comment: MASRHALL CTOR TO SPECIFY Performed By: #### L 400.0001 ####[facility] [address] [place], [place], [id number] Mucus Ql (Urine sed) 0 SEEN Normal [facility] Comment on above: Order Comment: MARSHALL CTOR TO SPECIFY Performed By: #### L 400.0001 ####[facility] [address] [place], [place], [id number] Urine Legionella pneumophila antigen detectionOrdered By: Sandeep Marie on 01-20-2025 L. pneumophila Ag Ql (U) [facility] Urine clarityOrdered By: Maeve Yoder on 01-20-2025 Clarity (U) Clear Clear [facility] Urine color determinationOrd ered By: Jeevan Yoder on 01-20-2025 Color (U) Straw Yellow [facility] Urine cultureOrdered By: Maeve Yoder on 01-20-2025 Bacteria identified Cx Nom (U) Proteus mirabilis Abnormal [facility] Urine glucose detectionOrder ed By: Jeevan Yoder on 01-20-2025 Glucose Ql (U) 1000 mg/dl High Normal [facility] Urine leukocyte esterase det ection by dipstickOrdered By: Jeevan Yoder on 01-20-2025 Leukocyte esterase Test strip Ql (U) Negative Negative [facility] Urine pHOrdered By: Jeevan rai on 01-20-2025 pH (U) 6.0 [pH] 5.0 - 8.0 [facility] Urine sediment bacteria coun t by microscopy (number/high power field)Ordered By: Jeevan Yoder on 01-20-2025 Bacteria LM.HPF (Urine sed) [#/Area] 0 /[HPF] None Seen [facility] Urine specific gravity measu rementOrdered By: Jeevan Yoder on 01-20-2025 Specific gravity (U) [Rel density] 1.010 1.002-1.030 [facility] Urine urobilinogen measureme ntOrdered By: Jeevan Yoder on 01-20-2025 Urobilinogen Ql (U) Normal mg/dl Normal [facility] White blood cell countOrdere d By: Jeevan Yoder on 01-20-2025 White blood cell count 0-5 SEEN /hpf 0-5 [facility] Anion gap in Serum or Plasma Ordered By: Ramone Smiley on 01-19-2025 Anion gap [Moles/Vol] 14 mmol/L 5-15 [facility] BUN/creatinine ratioOrdered By: Ramone Smiley on 01-19-2025 Urea nitrogen/Creatinine [Mass ratio] 7.7 mg/mg Low 10-20 [facility] Bilirubin, totalOrdered By: Ramone Smiley on 01-19-2025 Bilirubin [Mass/Vol] 0.25 mg/dL 0.00-1.30 [facility] CBC-Complete Blood Cnt No Di ffon 01-19-2025 Erythrocyte distribution width (RBC) [Ratio] 16.0 % High 11.6-14.6 [facility] Comment on above: Order Comment: Order Date: 01/19/25Order Info: [id number] - CBC Performed By: #### L 500.4050, L501.5200, L100.0500 ####[facility] [address] [place], [address] Hematocrit (Bld) [Volume fraction] 35.3 % Low 37-47 [facility] Comment on above: Order Comment: Order Date: 01/19/25Order Info: [id number] - CBC Performed By: #### L 500.4050, L501.5200, L100.0500 ####[facility] [address] [place], [address] Hemoglobin (Bld) [Mass/Vol] 10.9 g/dL Low 12.0-15.0 [facility] Comment on above: Order Comment: Order Date: 01/19/25Order Info: [id number] - CBC Performed By: #### L 500.4050, L501.5200, L100.0500 ####[facility] [address] [place], [address] MCH (RBC) [Entitic mass] 27.7 pg Normal 27.0-32.0 [facility] Comment on above: Order Comment: Order Date: 01/19/25Order Info: [id number] - CBC Performed By: #### L 500.4050, L501.5200, L100.0500 ####[facility] [address] [place], [address] MCHC (RBC) [Mass/Vol] 30.9 g/dL Low 32-36 [facility] Comment on above: Order Comment: Order Date: 01/19/25Order Info: [id number] - CBC Performed By: #### L 500.4050, L501.5200, L100.0500 ####[facility] [address] [place], [address] MCV (RBC) [Entitic vol] 89.6 fL Normal 81-99 [facility] Comment on above: Order Comment: Order Date: 01/19/25Order Info: [id number] - CBC Performed By: #### L 500.4050, L501.5200, L100.0500 ####[facility] [address] [place], [address] Platelet mean volume (Bld) [Entitic vol] 11.6 fL Normal 6.2-12.0 [facility] Comment on above: Order Comment: Order Date: 01/19/25Order Info: [id number] - CBC Performed By: #### L 500.4050, L501.5200, L100.0500 ####[facility] [address] [place], [address] Platelets (Bld) [#/Vol] 253 10*3/uL Normal 150-450 [facility] Comment on above: Order Comment: Order Date: 01/19/25Order Info: [id number] - CBC Performed By: #### L 500.4050, L501.5200, L100.0500 ####[facility] [address] [place], [address] RBC (Bld) [#/Vol] 3.94 10*6/uL Low 4.2-5.4 [facility] Comment on above: Order Comment: Order Date: 01/19/25Order Info: [id number] - CBC Performed By: #### L 500.4050, L501.5200, L100.0500 ####[facility] [address] [place], [address] RDW SD 52.7 fl High 35.1-43.9 [facility] Comment on above: Order Comment: Order Date: 01/19/25Order Info: [id number] - CBC Performed By: #### L 500.4050, L501.5200, L100.0500 ####[facility] [address] [place], [address] WBC (Bld) [#/Vol] 8.3 10*3/uL Normal 4.4-11.0 [facility] Comment on above: Order Comment: Order Date: 01/19/25Order Info: [id number] - CBC Performed By: #### L 500.4050, L501.5200, L100.0500 ####[facility] [address] [place], [address] Carbon dioxide, total [Moles /volume] in Central venous bloodOrdered By: Ramone Smiley on 01-19-2025 CO2 [Moles/Vol] 27.2 mmol/L 21.0-32.0 [facility] Chloride assayOrdered By: Richar Smiley on 01-19-2025 Chloride [Moles/Vol] 96 mmol/L Low 98-108 [facility] Comprehensive Metabolic Prof ilon 01-19-2025 Albumin [Mass/Vol] 3.4 g/dL Normal 3.4-4.8 [facility] Comment on above: Order Comment: Order Date: 01/19/25Order Info: [id number] - CMPOrder Info: [id number] - MG Performed By: #### L 500.4050, L501.5200, L100.0500 ####[facility] [address] [place], [address] Albumin/Globulin [Mass ratio] 0.9 {ratio} Normal 0.9-2.4 [facility] Comment on above: Order Comment: Order Date: 01/19/25Order Info: [id number] - CMPOrder Info: [id number] - MG Performed By: #### L 500.4050, L501.5200, L100.0500 ####[facility] [address] [place], [address] ALK PHOS 123 U/L High 35-104 [facility] Comment on above: Order Comment: Order Date: 01/19/25Order Info: [id number] - CMPOrder Info: [id number] - MG Performed By: #### L 500.4050, L501.5200, L100.0500 ####[facility] [address] [place], [address] ALT [Catalytic activity/Vol] 18 U/L Normal <=34 [facility] Comment on above: Order Comment: Order Date: 01/19/25Order Info: [id number] - CMPOrder Info: [id number] - MG Performed By: #### L 500.4050, L501.5200, L100.0500 ####[facility] [address] [place], [address] AST [Catalytic activity/Vol] 25 U/L Normal <=31 [facility] Comment on above: Order Comment: Order Date: 01/19/25Order Info: [id number] - CMPOrder Info: [id number] - MG Performed By: #### L 500.4050, L501.5200, L100.0500 ####[facility] [address] [place], [address] Bilirubin [Mass/Vol] 0.25 mg/dL Normal 0.00-1.30 [facility] Comment on above: Order Comment: Order Date: 01/19/25Order Info: [id number] - CMPOrder Info: [id number] - MG Performed By: #### L 500.4050, L501.5200, L100.0500 ####[facility] [address] [place], [address] BUN/CRE 7.7 RATIO Low 10-20 [facility] Comment on above: Order Comment: Order Date: 01/19/25Order Info: [id number] - CMPOrder Info: [id number] - MG Performed By: #### L 500.4050, L501.5200, L100.0500 ####[facility] [address] [place], [address] Calcium [Mass/Vol] 10.4 mg/dL Normal 7.6-11.0 [facility] Comment on above: Order Comment: Order Date: 01/19/25Order Info: [id number] - CMPOrder Info: [id number] - MG Performed By: #### L 500.4050, L501.5200, L100.0500 ####[facility] [address] [place], [address] Chloride [Moles/Vol] 96 mmol/L Low 98-108 [facility] Comment on above: Order Comment: Order Date: 01/19/25Order Info: [id number] - CMPOrder Info: [id number] - MG Performed By: #### L 500.4050, L501.5200, L100.0500 ####[facility] [address] [place], [address] CO2 [Moles/Vol] 27.2 mmol/L Normal 21.0-32.0 [facility] Comment on above: Order Comment: Order Date: 01/19/25Order Info: [id number] - CMPOrder Info: [id number] - MG Performed By: #### L 500.4050, L501.5200, L100.0500 ####[facility] [address] [place], [address] Creatinine [Mass/Vol] 1.06 mg/dL Normal 0.70-1.20 [facility] Comment on above: Order Comment: Order Date: 01/19/25Order Info: [id number] - CMPOrder Info: [id number] - MG Performed By: #### L 500.4050, L501.5200, L100.0500 ####[facility] [address] [place], [address] GAP 14 Normal 5-15 [facility] Comment on above: Order Comment: Order Date: 01/19/25Order Info: [id number] - CMPOrder Info: [id number] - MG Performed By: #### L 500.4050, L501.5200, L100.0500 ####[facility] [address] [place], [address] GFR/1.73 sq M.predicted among non-blacks MDRD (S/P/Bld) [Vol rate/Area] 53 mL/min/{1.73_m2} Low >60 [facility] Comment on above: Order Comment: Order Date: 01/19/25Order Info: [id number] - CMPOrder Info: [id number] - MG Result Comment: mL/m in/1.73m2 CKD-EPI Creatinine Equation (2020) Performed By: #### L 500.4050, L501.5200, L100.0500 ####[facility] [address] [place], [address] Globulin (S) [Mass/Vol] 3.9 g/dL Normal 2.2-4.2 [facility] Comment on above: Order Comment: Order Date: 01/19/25Order Info: [id number] - CMPOrder Info: [id number] - MG Performed By: #### L 500.4050, L501.5200, L100.0500 ####[facility] [address] [place], [address] Glucose [Mass/Vol] 288 mg/dL High 70-99 [facility] Comment on above: Order Comment: Order Date: 01/19/25Order Info: [id number] - CMPOrder Info: [id number] - MG Performed By: #### L 500.4050, L501.5200, L100.0500 ####[facility] [address] [place], [address] Potassium [Moles/Vol] 3.3 mmol/L Normal 3.3-5.1 [facility] Comment on above: Order Comment: Order Date: 01/19/25Order Info: [id number] - CMPOrder Info: [id number] - MG Performed By: #### L 500.4050, L501.5200, L100.0500 ####[facility] [address] [place], [address] Sodium [Moles/Vol] 137 mmol/L Normal 133-145 [facility] Comment on above: Order Comment: Order Date: 01/19/25Order Info: [id number] - CMPOrder Info: [id number] - MG Performed By: #### L 500.4050, L501.5200, L100.0500 ####[facility] [address] [place], [address] T PROT 7.3 g/dL Normal 5.9-8.4 [facility] Comment on above: Order Comment: Order Date: 01/19/25Order Info: [id number] - CMPOrder Info: [id number] - MG Performed By: #### L 500.4050, L501.5200, L100.0500 ####[facility] [address] [place], [address] Urea nitrogen [Mass/Vol] 8 mg/dL Normal 4-19 [facility] Comment on above: Order Comment: Order Date: 01/19/25Order Info: [id number] - CMPOrder Info: [id number] - MG Performed By: #### L 500.4050, L501.5200, L100.0500 ####[facility] [address] [place], [address] Erythrocyte distribution wid th ratioOrdered By: Ramone Smiley on 01-19-2025 Erythrocyte distribution width (RBC) [Ratio] 16.0 % High 11.6-14.6 [facility] Erythrocyte distribution wid th standard deviationOrdered By: Ramone Smiley on 01-19-2025 Erythrocyte distribution width (RBC) [Ratio] 52.7 fl High 35.1-43.9 [facility] Glomerular filtration rate ( GFR) estimation/1.73 sq m using serum, plasma, or whole bOrdered By: Ramone Smiley on 01-19-2025 GFR/1.73 sq M.predicted among non-blacks MDRD (S/P/Bld) [Vol rate/Area] 53 mL/min/{1.73_m2} Low >60 [facility] Hematocrit Auto (Bld) [Volum e fraction]Ordered By: Ramone Smiley on 01-19-2025 Hematocrit (Bld) [Volume fraction] 35.3 % Low 37-47 [facility] Hemoglobin measurementOrdere d By: Ramone Smiley on 01-19-2025 Hemoglobin (Bld) [Mass/Vol] 10.9 g/dL Low 12.0-15.0 [facility] L503.7505on 01-19-2025 Natriuretic peptide B (Bld) [Mass/Vol] 3173 pg/mL High <=1800 [facility] Comment on above: Order Comment: Order Date: 01/19/25Order Info: [id number] - CMPOrder Info: [id number] - MG Result Comment: Hear t Failure Unlikely: < 300 pg/mLHeart Failure Likely< 50 Years: > 450 pg/mL50-75 Years: > 900 pg/mL>75 Years: > 1800 pg/mL Performed By: #### L 503.7505 ####[facility] [address] [place], [place], [id number] MCV (mean corpuscular volume ) determinationOrdered By: Ramone Smiley on 01-19-2025 MCV (RBC) [Entitic vol] 89.6 fL 81-99 [facility] Magnesiumon 01-19-2025 Magnesium [Mass/Vol] 2.3 mg/dL High 1.5-2.2 [facility] Comment on above: Order Comment: Order Date: 01/19/25Order Info: [id number] - CMPOrder Info: [id number] - MG Performed By: #### L 500.4050, L501.5200, L100.0500 ####[facility] [address] [place], [address] Magnesium measurement (mass/ volume)Ordered By: Ramone Smiley on 01-19-2025 Magnesium (Unsp spec) [Mass/Vol] 2.3 mg/dL High 1.5-2.2 [facility] Mean corpuscular hemoglobin (MCH) determinationOrdered By: Ramone Smiley on 01-19-2025 MCH (RBC) [Entitic mass] 27.7 pg 27.0-32.0 [facility] Natriuretic peptide.B prohor hayley N-Terminal [Mass/volume] in Serum or PlasmaOrdered By: Ramone Smiley on 01-19-2025 Natriuretic peptide.B prohormone N-Terminal [Mass/Vol] 3173 pg/mL High <1800 [facility] No Panel InformationOrdered By: Ramone Smiley on 01-19-2025 25 U/L <32 [facility] Platelet countOrdered By: Richar Smiley on 01-19-2025 Platelets (Bld) [#/Vol] 253 10*3/uL 150-450 [facility] Potassium measurement (mass/ volume)Ordered By: Ramone Smiley on 01-19-2025 Potassium (Unsp spec) [Mass/Vol] 3.3 mmol/L 3.3-5.1 [facility] RBC Auto (Bld) [#/Vol]Ordere d By: Ramone Smiley on 01-19-2025 RBC (Bld) [#/Vol] 3.94 10*6/uL Low 4.2-5.4 [facility] Serum creatinine measurement (mass/volume)Ordered By: Ramone Smiley on 01-19-2025 Creatinine [Mass/Vol] 1.06 mg/dL 0.70-1.20 [facility] Serum globulin measurementOr dered By: Ramone Smiley on 01-19-2025 Globulin (S) [Mass/Vol] 3.9 g/dL 2.2-4.2 [facility] Serum glucose measurement (m ass/volume)Ordered By: Ramone Smiley on 01-19-2025 Glucose [Mass/Vol] 288 mg/dL High 70-99 [facility] Serum or plasma alanine kelley otransferase (ALT) measurementOrdered By: Ramone Smiley on 01-19-2025 ALT [Catalytic activity/Vol] 18 U/L <35 [facility] Serum or plasma albumin melanie urement (mass/volume)Ordered By: Ramone Smiley on 01-19-2025 Albumin [Mass/Vol] 3.4 g/dL 3.4-4.8 [facility] Serum or plasma albumin/glob ulin mass ratioOrdered By: Ramone Smiley on 01-19-2025 Albumin/Globulin [Mass ratio] 0.9 {ratio} 0.9-2.4 [facility] Serum or plasma alkaline lissa sphatase measurementOrdered By: Ramone Smiley on 01-19-2025 ALP [Catalytic activity/Vol] 123 U/L High 35-104 [facility] Serum or plasma calcium melanie urement (mass/volume)Ordered By: Ramone Smiley on 01-19-2025 Calcium [Mass/Vol] 10.4 mg/dL 7.6-11.0 [facility] Serum or plasma urea nitroge n measurement (mass/volume)Ordered By: Ramone Smiley on 01-19-2025 Urea nitrogen [Mass/Vol] 8 mg/dL 4-19 [facility] Sodium levelOrdered By: Ramone Smiley on 01-19-2025 Sodium [Moles/Vol] 137 mmol/L 133-145 [facility] Total proteinOrdered By: Lilliam Smiley on 01-19-2025 Protein [Mass/Vol] 7.3 g/dL 5.9-8.4 [facility] White blood cell (WBC) count Ordered By: Ramone Smiley on 01-19-2025 WBC (Bld) [#/Vol] 8.3 10*3/uL 4.4-11.0 [facility] 12 Lead EKGon 01-15-2025 12 Lead EKG Normal [facility] Absolute lymphocyte countOrd ered By: Jeevan Yoder on 01-15-2025 Lymphocytes Auto (Unsp spec) [#/Vol] 1.92 10*3/uL 0.83-4.51 [facility] Absolute neutrophil countOrd ered By: Jeevan Yoder on 01-15-2025 Neutrophils (Bld) [#/Vol] 7.7 10*3/uL 2.0-7.7 [facility] Anion gap in Serum or Plasma Ordered By: Jeevan Yoder on 01-15-2025 Anion gap [Moles/Vol] 11 mmol/L 5-15 [facility] Automated lymphocyte count a s percentage of total leukocytesOrdered By: Jeevan Yoder on 01-15-2025 Lymphocytes/100 WBC Auto (Unsp spec) 18.1 % Low 19-41 [facility] BUN/creatinine ratioOrdered By: Jeevan Yoder on 01-15-2025 Urea nitrogen/Creatinine [Mass ratio] 16.6 mg/mg 10- [facility] Basic Metabolic Profile (BMP )on 01-15-2025 BUN/CRE 16.6 RATIO Normal - [facility] Comment on above: Performed By: #### L 501.4021, L500.2500, L100.0100 ####[facility] [address] [place], [address] Calcium [Mass/Vol] 9.6 mg/dL Normal 7.6-11.0 [facility] Comment on above: Performed By: #### L 501.4021, L500.2500, L100.0100 ####[facility] [address] [place], [address] Chloride [Moles/Vol] 102 mmol/L Normal 98-108 [facility] Comment on above: Performed By: #### L 501.4021, L500.2500, L100.0100 ####[facility] [address] [place], [address] CO2 [Moles/Vol] 25.0 mmol/L Normal 21.0-32.0 [facility] Comment on above: Performed By: #### L 501.4021, L500.2500, L100.0100 ####[facility] [address] [place], [address] Creatinine [Mass/Vol] 0.92 mg/dL Normal 0.70-1.20 [facility] Comment on above: Performed By: #### L 501.4021, L500.2500, L100.0100 ####[facility] [address] [place], [address] ECRCL 48.84 ml/min Low 50-250 [facility] Comment on above: Performed By: #### L 501.4021, L500.2500, L100.0100 ####[facility] [address] [place], [address] GAP 11 Normal 5-15 [facility] Comment on above: Performed By: #### L 501.4021, L500.2500, L100.0100 ####[facility] [address] [place], [address] GFR/1.73 sq M.predicted among non-blacks MDRD (S/P/Bld) [Vol rate/Area] 63 mL/min/{1.73_m2} Normal >60 [facility] Comment on above: Result Comment: mL/m in/1.73m2 CKD-EPI Creatinine Equation (2020) Performed By: #### L 501.4021, L500.2500, L100.0100 ####[facility] [address] [place], [address] Glucose [Mass/Vol] 144 mg/dL High 70-99 [facility] Comment on above: Performed By: #### L 501.4021, L500.2500, L100.0100 ####[facility] [address] [place], [address] Potassium [Moles/Vol] 3.7 mmol/L Normal 3.3-5.1 [facility] Comment on above: Performed By: #### L 501.4021, L500.2500, L100.0100 ####[facility] [address] [place], [address] Sodium [Moles/Vol] 138 mmol/L Normal 133-145 [facility] Comment on above: Performed By: #### L 501.4021, L500.2500, L100.0100 ####[facility] [address] [place], [address] Urea nitrogen [Mass/Vol] 15 mg/dL Normal 4-19 [facility] Comment on above: Performed By: #### L 501.4021, L500.2500, L100.0100 ####[facility] [address] [place], [address] Basophil percentageOrdered B y: Jeevan Yoder on 01-15-2025 Basophils/100 WBC (Bld) 0.3 % 0-1 [facility] CBC W/Diff, Automatedon 12-29 Absolute Lymph 1.92 X10 3/uL Normal 0.83-4.51 [facility] Comment on above: Performed By: #### L 501.4021, L500.2500, L100.0100 ####[facility] [address] [place], [address] Absolute Neut 7.7 X10 3/uL Normal 2.0-7.7 [facility] Comment on above: Performed By: #### L 501.4021, L500.2500, L100.0100 ####[facility] [address] [place], [address] Basophils/100 WBC (Bld) 0.3 % Normal 0-1 [facility] Comment on above: Performed By: #### L 501.4021, L500.2500, L100.0100 ####[facility] [address] [place], [address] Eosinophils/100 WBC (Bld) 1.6 % Normal 0-5 [facility] Comment on above: Performed By: #### L 501.4021, L500.2500, L100.0100 ####[facility] [address] [place], [address] Erythrocyte distribution width (RBC) [Ratio] 16.3 % High 11.6-14.6 [facility] Comment on above: Performed By: #### L 501.4021, L500.2500, L100.0100 ####[facility] [address] [place], [address] Hematocrit (Bld) [Volume fraction] 34.3 % Low 37-47 [facility] Comment on above: Performed By: #### L 501.4021, L500.2500, L100.0100 ####[facility] [address] [place], [address] Hemoglobin (Bld) [Mass/Vol] 11.0 g/dL Low 12.0-15.0 [facility] Comment on above: Performed By: #### L 501.4021, L500.2500, L100.0100 ####[facility] [address] [place], [address] IG% 0.400 Normal 0.0-0.9 [facility] Comment on above: Result Comment: IG% - Immature Granulocytes (promyelocytes, myelocytes andmetamyelocytes) > 1% indicates that a LEFT SHIFT is Present. Performed By: #### L 501.4021, L500.2500, L100.0100 ####[facility] [address] [place], [address] Lymphocytes/100 WBC (Bld) 18.1 % Low 19-41 [facility] Comment on above: Performed By: #### L 501.4021, L500.2500, L100.0100 ####[facility] [address] [place], [address] MCH (RBC) [Entitic mass] 27.8 pg Normal 27.0-32.0 [facility] Comment on above: Performed By: #### L 501.4021, L500.2500, L100.0100 ####[facility] [address] [place], [address] MCHC (RBC) [Mass/Vol] 32.1 g/dL Normal 32-36 [facility] Comment on above: Performed By: #### L 501.4021, L500.2500, L100.0100 ####[facility] [address] [place], [address] MCV (RBC) [Entitic vol] 86.6 fL Normal 81-99 [facility] Comment on above: Performed By: #### L 501.4021, L500.2500, L100.0100 ####[facility] [address] [place], [address] Monocytes/100 WBC (Bld) 6.9 % Normal 0-10 [facility] Comment on above: Performed By: #### L 501.4021, L500.2500, L100.0100 ####[facility] [address] [place], [address] Neutrophils/100 WBC (Bld) 72.7 % High 47-70 [facility] Comment on above: Performed By: #### L 501.4021, L500.2500, L100.0100 ####[facility] [address] [place], [address] Nucleated RBC (Bld) [#/Vol] 0 10*3/uL Normal 0-5 [facility] Comment on above: Performed By: #### L 501.4021, L500.2500, L100.0100 ####[facility] [address] [place], [address] Platelet mean volume (Bld) [Entitic vol] 10.5 fL Normal 6.2-12.0 [facility] Comment on above: Performed By: #### L 501.4021, L500.2500, L100.0100 ####[facility] [address] [place], [address] Platelets (Bld) [#/Vol] 256 10*3/uL Normal 150-450 [facility] Comment on above: Performed By: #### L 501.4021, L500.2500, L100.0100 ####[facility] [address] [place], [address] RBC (Bld) [#/Vol] 3.96 10*6/uL Low 4.2-5.4 [facility] Comment on above: Performed By: #### L 501.4021, L500.2500, L100.0100 ####[facility] [address] [place], [address] RDW SD 50.8 fl High 35.1-43.9 [facility] Comment on above: Performed By: #### L 501.4021, L500.2500, L100.0100 ####[facility] [address] [place], [address] WBC (Bld) [#/Vol] 10.6 10*3/uL Normal 4.4-11.0 [facility] Comment on above: Performed By: #### L 501.4021, L500.2500, L100.0100 ####[facility] [address] [place], [address] Carbon dioxide, total [Moles /volume] in Central venous bloodOrdered By: Jeevan Yoder on 01-15-2025 CO2 [Moles/Vol] 25.0 mmol/L 21.0-32.0 [facility] Chest PA and Lateralon 01-15 Chest PA and Lateral Normal [facility] Chloride assayOrdered By: Kenny Yoder on 01-15-2025 Chloride [Moles/Vol] 102 mmol/L 98-108 [facility] Emergency Department Summary on 01-15-2025 Emergency Department Summary Normal [facility] Eosinophil percentageOrdered By: Jeevan Yoder on 01-15-2025 Eosinophils/100 WBC (Bld) 1.6 % 0-5 [facility] Erythrocyte distribution wid th ratioOrdered By: Jeevan Yoder on 01-15-2025 Erythrocyte distribution width (RBC) [Ratio] 16.3 % High 11.6-14.6 [facility] Erythrocyte distribution wid th standard deviationOrdered By: Jeevan Yoder on 01-15-2025 Erythrocyte distribution width (RBC) [Ratio] 50.8 fl High 35.1-43.9 [facility] Glomerular filtration rate ( GFR) estimation/1.73 sq m using serum, plasma, or whole bOrdered By: Jeevan Yoder on 01-15-2025 GFR/1.73 sq M.predicted among non-blacks MDRD (S/P/Bld) [Vol rate/Area] 63 mL/min/{1.73_m2} >60 [facility] Comment on above: mL/min/1.73m2 CKD-EP I Creatinine Equation (2020) Hematocrit Auto (Bld) [Volum e fraction]Ordered By: Jeevan Yoder on 01-15-2025 Hematocrit (Bld) [Volume fraction] 34.3 % Low 37-47 [facility] Hemoglobin measurementOrdere d By: Jeevan Yoder on 01-15-2025 Hemoglobin (Bld) [Mass/Vol] 11.0 g/dL Low 12.0-15.0 [facility] Immature granulocytes/100 WB C Auto (Bld)Ordered By: Jeevan Yoder on 01-15-2025 Immature granulocytes/100 WBC (Bld) 0.400 % 0.0-0.9 [facility] Comment on above: IG% - Immature Granu locytes (promyelocytes, myelocytes and metamyelocytes) > 1% indicates that a LEFT SHIFT is Present. L499.0042on 01-15-2025 Trop T High Sen 46 ng/L High <=14 [facility] Comment on above: Performed By: #### L 499.0042 ####[facility] [address] [place], [address] L499.0043on 01-15-2025 Trop T High Sen Normal <=14 [facility] Comment on above: Result Comment: DEP ED Performed By: #### L 499.0043 ####[facility] [address] [place], [address] L501.4021on 01-15-2025 Trop T High Sen 46 ng/L High <=14 [facility] Comment on above: Performed By: #### L 501.4021, L500.2500, L100.0100 ####[facility] [address] [place], [address] L503.7505on 01-15-2025 Natriuretic peptide B (Bld) [Mass/Vol] 4224 pg/mL High <=1800 [facility] Comment on above: Result Comment: Hear t Failure Unlikely: < 300 pg/mLHeart Failure Likely< 50 Years: > 450 pg/mL50-75 Years: > 900 pg/mL>75 Years: > 1800 pg/mL Performed By: #### L 503.7505 ####[facility] [address] [place], [address] MCV (mean corpuscular volume ) determinationOrdered By: Jeevan Yoder on 01-15-2025 MCV (RBC) [Entitic vol] 86.6 fL 81-99 [facility] Mean corpuscular hemoglobin (MCH) determinationOrdered By: Jeevan Yoder on 01-15-2025 MCH (RBC) [Entitic mass] 27.8 pg 27.0-32.0 [facility] Mean corpuscular hemoglobin concentration (MCHC) determinationOrdered By: Jeevan Yoder on 01-15-2025 MCHC (RBC) [Mass/Vol] 32.1 g/dL 32-36 [facility] Mean platelet volume determi nationOrdered By: Jeevan Yoder on 01-15-2025 Platelet mean volume (Bld) [Entitic vol] 10.5 fL 6.2-12.0 [facility] Monocyte percentageOrdered B y: Jeevan Yoder on 01-15-2025 Monocytes/100 WBC (Bld) 6.9 % 0-10 [facility] Natriuretic peptide.B prohor hayley N-Terminal [Mass/volume] in Serum or PlasmaOrdered By: Jeevan Yoder on 01-15-2025 Natriuretic peptide.B prohormone N-Terminal [Mass/Vol] 4224 pg/mL High <1800 [facility] Comment on above: Heart Failure Unlike ly: < 300 pg/mLHeart Failure Likely< 50 Years: > 450 pg/mL50-75 Years: > 900 pg/mL>75 Years: > 1800 pg/mL Neutrophil percentageOrdered By: Jeevan Yoder on 01-15-2025 Neutrophils/100 WBC (Bld) 72.7 % High 47-70 [facility] Nucleated red blood cell per centageOrdered By: Jeevan Yoder on 01-15-2025 Nucleated RBC/100 WBC (Bld) [Ratio] 0 % 0-5 [facility] Platelet countOrdered By: Kenny Yoder on 01-15-2025 Platelets (Bld) [#/Vol] 256 10*3/uL 150-450 [facility] Potassium measurement (mass/ volume)Ordered By: Jeevan Yoder on 01-15-2025 Potassium (Unsp spec) [Mass/Vol] 3.7 mmol/L 3.3-5.1 [facility] RBC Auto (Bld) [#/Vol]Ordere d By: Jeevan Yoder on 01-15-2025 RBC (Bld) [#/Vol] 3.96 10*6/uL Low 4.2-5.4 [facility] Serum creatinine measurement (mass/volume)Ordered By: Jeevan Yoder on 01-15-2025 Creatinine [Mass/Vol] 0.92 mg/dL 0.70-1.20 [facility] Serum glucose measurement (m ass/volume)Ordered By: Jeevan Yoder on 01-15-2025 Glucose [Mass/Vol] 144 mg/dL High 70-99 [facility] Serum or plasma calcium melanie urement (mass/volume)Ordered By: Jeevan Yoder on 01-15-2025 Calcium [Mass/Vol] 9.6 mg/dL 7.6-11.0 [facility] Serum or plasma urea nitroge n measurement (mass/volume)Ordered By: Jeevan Yoder on 01-15-2025 Urea nitrogen [Mass/Vol] 15 mg/dL 4-19 [facility] Sodium levelOrdered By: Marcelino Yoder on 01-15-2025 Sodium [Moles/Vol] 138 mmol/L 133-145 [facility] Troponin T.cardiac [Mass/vol ume] in Serum or Plasma by High sensitivity methodOrdered By: Jeevan Yoder on 01-15-2025 Troponin T.cardiac High sensitivity method [Mass/Vol] 46 ng/L High <14 [facility] Troponin T.cardiac High sensitivity method [Mass/Vol] 46 ng/L High <14 [facility] White blood cell (WBC) count Ordered By: Jeevan Yoder on 01-15-2025 WBC (Bld) [#/Vol] 10.6 10*3/uL 4.4-11.0 [facility] 12 Lead EKGon 01-07-2025 12 Lead EKG Normal [facility] Absolute lymphocyte countOrd ered By: Ethan Suarez on 01-07-2025 Lymphocytes Auto (Unsp spec) [#/Vol] 2.89 10*3/uL 0.83-4.51 [facility] Absolute neutrophil countOrd ered By: Ethan Suarez on 01-07-2025 Neutrophils (Bld) [#/Vol] 5.3 10*3/uL 2.0-7.7 [facility] Anion gap in Serum or Plasma Ordered By: Etahn Suarez on 01-07-2025 Anion gap [Moles/Vol] 11 mmol/L 5- [facility] Automated lymphocyte count a s percentage of total leukocytesOrdered By: Ethan Suarez on 01-07-2025 Lymphocytes/100 WBC Auto (Unsp spec) 31.8 % 19-41 [facility] BUN/creatinine ratioOrdered By: Ethan Suarez on 01-07-2025 Urea nitrogen/Creatinine [Mass ratio] 15.5 mg/mg 10-20 [facility] Basic Metabolic Profile (BMP )on 01-07-2025 BUN/CRE 15.5 RATIO Normal - [facility] Comment on above: Performed By: #### L 500.2500, L100.0100 ####[facility] [address] [place], [address] Calcium [Mass/Vol] 10.3 mg/dL Normal 7.6-11.0 [facility] Comment on above: Performed By: #### L 500.2500, L100.0100 ####[facility] [address] [place], [address] Chloride [Moles/Vol] 99 mmol/L Normal 98-108 [facility] Comment on above: Performed By: #### L 500.2500, L100.0100 ####[facility] [address] [place], [address] CO2 [Moles/Vol] 22.5 mmol/L Normal 21.0-32.0 [facility] Comment on above: Performed By: #### L 500.2500, L100.0100 ####[facility] [address] [place], [address] Creatinine [Mass/Vol] 0.90 mg/dL Normal 0.70-1.20 [facility] Comment on above: Performed By: #### L 500.2500, L100.0100 ####[facility] [address] [place], [address] ECRCL 49.31 ml/min Low 50-250 [facility] Comment on above: Performed By: #### L 500.2500, L100.0100 ####[facility] [address] [place], [address] GAP 11 Normal 5-15 [facility] Comment on above: Performed By: #### L 500.2500, L100.0100 ####[facility] [address] [place], [address] GFR/1.73 sq M.predicted among non-blacks MDRD (S/P/Bld) [Vol rate/Area] 64 mL/min/{1.73_m2} Normal >60 [facility] Comment on above: Result Comment: mL/m in/1.73m2 CKD-EPI Creatinine Equation (2020) Performed By: #### L 500.2500, L100.0100 ####[facility] [address] [place], [address] Glucose [Mass/Vol] 321 mg/dL High 70-99 [facility] Comment on above: Performed By: #### L 500.2500, L100.0100 ####[facility] [address], [address] Potassium [Moles/Vol] 3.8 mmol/L Normal 3.3-5.1 [facility] Comment on above: Result Comment: Hemo lysis present, Results??could be affected.?? Performed By: #### L 500.2500, L100.0100 ####[facility] [address] [place], [address] Sodium [Moles/Vol] 133 mmol/L Normal 133-145 [facility] Comment on above: Performed By: #### L 500.2500, L100.0100 ####[facility] [address] [place], [address] Urea nitrogen [Mass/Vol] 14 mg/dL Normal 4-19 [facility] Comment on above: Performed By: #### L 500.2500, L100.0100 ####[facility] [address] [place], [address] Basophil percentageOrdered B y: Ethan Le on 01-07-2025 Basophils/100 WBC (Bld) 0.5 % 0-1 [facility] Bedside Glucoseon 05-10-2025 FINGERSTICK GLU 316 mg/dL High 74-106 [facility] Comment on above: Result Comment: KATARINA GARY OF PATIENT CARE PER NURSING PROTOCOL Performed By: #### L 501.080 ####[facility] [address] [place], [address] CBC W/Diff, Automatedon 05-1 0-2025 Absolute Lymph 2.89 X10 3/uL Normal 0.83-4.51 [facility] Comment on above: Performed By: #### L 500.2500, L100.0100 ####[facility] [address] [place], [address] Absolute Neut 5.3 X10 3/uL Normal 2.0-7.7 [facility] Comment on above: Performed By: #### L 500.2500, L100.0100 ####[facility] [address] [place], [address] Basophils/100 WBC (Bld) 0.5 % Normal 0-1 [facility] Comment on above: Performed By: #### L 500.2500, L100.0100 ####[facility] [address] [place], [address] Eosinophils/100 WBC (Bld) 1.9 % Normal 0-5 [facility] Comment on above: Performed By: #### L 500.2500, L100.0100 ####[facility] [address] [place], [address] Erythrocyte distribution width (RBC) [Ratio] 15.7 % High 11.6-14.6 [facility] Comment on above: Performed By: #### L 500.2500, L100.0100 ####[facility] [address] [place], [address] Hematocrit (Bld) [Volume fraction] 34.0 % Low 37-47 [facility] Comment on above: Performed By: #### L 500.2500, L100.0100 ####[facility] [address] [place], [address] Hemoglobin (Bld) [Mass/Vol] 10.5 g/dL Low 12.0-15.0 [facility] Comment on above: Performed By: #### L 500.2500, L100.0100 ####[facility] [address] [place], [address] IG% 0.200 Normal 0.0-0.9 [facility] Comment on above: Result Comment: IG% - Immature Granulocytes (promyelocytes, myelocytes andmetamyelocytes) > 1% indicates that a LEFT SHIFT is Present. Performed By: #### L 500.2500, L100.0100 ####[facility] [address] [place], [address] Lymphocytes/100 WBC (Bld) 31.8 % Normal 19-41 [facility] Comment on above: Performed By: #### L 500.2500, L100.0100 ####[facility] [address] [place], [address] MCH (RBC) [Entitic mass] 26.9 pg Low 27.0-32.0 [facility] Comment on above: Performed By: #### L 500.2500, L100.0100 ####[facility] [address] [place], [address] MCHC (RBC) [Mass/Vol] 30.9 g/dL Low 32-36 [facility] Comment on above: Performed By: #### L 500.2500, L100.0100 ####[facility] [address] [place], [address] MCV (RBC) [Entitic vol] 87.0 fL Normal 81-99 [facility] Comment on above: Performed By: #### L 500.2500, L100.0100 ####[facility] [address] [place], [address] Monocytes/100 WBC (Bld) 7.6 % Normal 0-10 [facility] Comment on above: Performed By: #### L 500.2500, L100.0100 ####[facility] [address] [place], [address] Neutrophils/100 WBC (Bld) 58.0 % Normal 47-70 [facility] Comment on above: Performed By: #### L 500.2500, L100.0100 ####[facility] [address] [place], [address] Nucleated RBC (Bld) [#/Vol] 0 10*3/uL Normal 0-5 [facility] Comment on above: Performed By: #### L 500.2500, L100.0100 ####[facility] [address] [place], [address] Platelet mean volume (Bld) [Entitic vol] 11.1 fL Normal 6.2-12.0 [facility] Comment on above: Performed By: #### L 500.2500, L100.0100 ####[facility] [address] [place], [address] Platelets (Bld) [#/Vol] 237 10*3/uL Normal 150-450 [facility] Comment on above: Performed By: #### L 500.2500, L100.0100 ####[facility] [address] [place], [address] RBC (Bld) [#/Vol] 3.91 10*6/uL Low 4.2-5.4 [facility] Comment on above: Performed By: #### L 500.2500, L100.0100 ####[facility] [address] [place], [address] RDW SD 49.4 fl High 35.1-43.9 [facility] Comment on above: Performed By: #### L 500.2500, L100.0100 ####[facility] [address] [place], [address] WBC (Bld) [#/Vol] 9.1 10*3/uL Normal 4.4-11.0 [facility] Comment on above: Performed By: #### L 500.2500, L100.0100 ####[facility] [address] [place], [address] Carbon dioxide, total [Moles /volume] in Central venous bloodOrdered By: Ethan Suarez on 01-07-2025 CO2 [Moles/Vol] 22.5 mmol/L 21.0-32.0 [facility] Chest PA and Lateralon 01-07 Chest PA and Lateral Normal [facility] Chloride assayOrdered By: Albaro Suarez on 01-07-2025 Chloride [Moles/Vol] 99 mmol/L 98-108 [facility] Emergency Department Summary on 01-07-2025 Emergency Department Summary Normal [facility] Eosinophil percentageOrdered By: Ethan Suarez on 01-07-2025 Eosinophils/100 WBC (Bld) 1.9 % 0-5 [facility] Erythrocyte distribution wid th ratioOrdered By: Ethan Suarez on 01-07-2025 Erythrocyte distribution width (RBC) [Ratio] 15.7 % High 11.6-14.6 [facility] Erythrocyte distribution wid th standard deviationOrdered By: Ethan Suarez on 01-07-2025 Erythrocyte distribution width (RBC) [Ratio] 49.4 fl High 35.1-43.9 [facility] Glomerular filtration rate ( GFR) estimation/1.73 sq m using serum, plasma, or whole bOrdered By: Ethan Suarez on 01-07-2025 GFR/1.73 sq M.predicted among non-blacks MDRD (S/P/Bld) [Vol rate/Area] 64 mL/min/{1.73_m2} >60 [facility] Comment on above: mL/min/1.73m2 CKD-EP I Creatinine Equation (2020) [facility] at [facility] deOrdered By: Ethan Suarez on 01-07-2025 Glucose [Mass/Vol] 316 mg/dL High 74-106 [facility] Comment on above: MANAGEMENT OF PATIEN T CARE PER NURSING PROTOCOL Hematocrit Auto (Bld) [Volum e fraction]Ordered By: Ethan Suarez on 01-07-2025 Hematocrit (Bld) [Volume fraction] 34.0 % Low 37-47 [facility] Hemoglobin measurementOrdere d By: Ethan Suarez on 01-07-2025 Hemoglobin (Bld) [Mass/Vol] 10.5 g/dL Low 12.0-15.0 [facility] Immature granulocytes/100 WB C Auto (Bld)Ordered By: Ethan Suarez on 01-07-2025 Immature granulocytes/100 WBC (Bld) 0.200 % 0.0-0.9 [facility] Comment on above: IG% - Immature Granu locytes (promyelocytes, myelocytes and metamyelocytes) > 1% indicates that a LEFT SHIFT is Present. Influenza virus A and B and SARS-CoV-2 (COVID-19) and Respiratory syncytial virus RNAOrdered By: Ethan Suarez on 01-07-2025 SARS-CoV-2 (COVID-19) RNA BEBETO+probe Ql (Unsp spec) [facility] M100.678on 01-07-2025 M100.678 SARS-CoV-2 (COVID 19 ) Negative INFLUENZA A Negative INFLUENZA B Negative RSV PCR Negative Normal [facility] Comment on above: Performed By: #### M 100.678 ####[facility] [address] [place], [place], [id number] MCV (mean corpuscular volume ) determinationOrdered By: Ethan Suarez on 01-07-2025 MCV (RBC) [Entitic vol] 87.0 fL 81-99 [facility] Mean corpuscular hemoglobin (MCH) determinationOrdered By: Ethan Suarez on 01-07-2025 MCH (RBC) [Entitic mass] 26.9 pg Low 27.0-32.0 [facility] Mean corpuscular hemoglobin concentration (MCHC) determinationOrdered By: Ethan Suarez on 01-07-2025 MCHC (RBC) [Mass/Vol] 30.9 g/dL Low 32-36 [facility] Mean platelet volume determi nationOrdered By: Ethan Suarez on 01-07-2025 Platelet mean volume (Bld) [Entitic vol] 11.1 fL 6.2-12.0 [facility] Monocyte percentageOrdered B y: Ethan Suarez on 01-07-2025 Monocytes/100 WBC (Bld) 7.6 % 0-10 [facility] Neutrophil percentageOrdered By: Ethan Suarez on 01-07-2025 Neutrophils/100 WBC (Bld) 58.0 % 47-70 [facility] Nucleated red blood cell per centageOrdered By: Ethan Suarez on 01-07-2025 Nucleated RBC/100 WBC (Bld) [Ratio] 0 % 0-5 [facility] Platelet countOrdered By: Albaro Suarez on 01-07-2025 Platelets (Bld) [#/Vol] 237 10*3/uL 150-450 [facility] Potassium measurement (mass/ volume)Ordered By: Ethan Suarez on 01-07-2025 Potassium (Unsp spec) [Mass/Vol] 3.8 mmol/L 3.3-5.1 [facility] Comment on above: Hemolysis present, R esults could be affected. RBC Auto (Bld) [#/Vol]Ordere d By: Ethan Suarez on 01-07-2025 RBC (Bld) [#/Vol] 3.91 10*6/uL Low 4.2-5.4 [facility] Serum creatinine measurement (mass/volume)Ordered By: Ethan Suarez on 01-07-2025 Creatinine [Mass/Vol] 0.90 mg/dL 0.70-1.20 [facility] Serum glucose measurement (m ass/volume)Ordered By: Ethan Suarez on 01-07-2025 Glucose [Mass/Vol] 321 mg/dL High 70-99 [facility] Serum or plasma calcium melanie urement (mass/volume)Ordered By: Ethan Suarez on 01-07-2025 Calcium [Mass/Vol] 10.3 mg/dL 7.6-11.0 [facility] Serum or plasma urea nitroge n measurement (mass/volume)Ordered By: Ethan Suarez on 01-07-2025 Urea nitrogen [Mass/Vol] 14 mg/dL 4-19 [facility] Sodium levelOrdered By: Ethan Suarez on 01-07-2025 Sodium [Moles/Vol] 133 mmol/L 133-145 [facility] White blood cell (WBC) count Ordered By: Ethan Suarez on 01-07-2025 WBC (Bld) [#/Vol] 9.1 10*3/uL 4.4-11.0 [facility] Inital Evaluation (1) - PTon 10-13-2024 Inital Evaluation (1) - PT Normal [facility] Albumin to globulin ratioOrd ered By: Ramone Smiley on 09-27-2024 Albumin/Globulin [Mass ratio] 0.6 {ratio} Low 0.9-2.4 [facility] Bilirubin, totalOrdered By: Ramone Smiley on 09-27-2024 Bilirubin [Mass/Vol] 0.20 mg/dL 0.20-1.00 [facility] Comment on above: For patients on eltr ombopag therapy, use of Dimension [place] [facility] TBIL is not recommended. Blood urea nitrogen (BUN)/cr eatinine ratioOrdered By: Ramone Smiley on 09-27-2024 Urea nitrogen/Creatinine [Mass ratio] 12.7 mg/mg 10-20 [facility] CBC-Complete Blood Cnt No Di ffon 09-27-2024 Erythrocyte distribution width (RBC) [Ratio] 15.9 % High 11.6-14.6 [facility] Comment on above: Order Comment: Order Date: 09/27/24Order Info: [id number] - CBC Performed By: #### L 500.4050, L100.0500 ####[facility] [address] [place], [address] Hematocrit (Bld) [Volume fraction] 35.7 % Low 37-47 [facility] Comment on above: Order Comment: Order Date: 09/27/24Order Info: [id number] - CBC Performed By: #### L 500.4050, L100.0500 ####[facility] [address] [place], [address] Hemoglobin (Bld) [Mass/Vol] 11.0 g/dL Low 12.0-15.0 [facility] Comment on above: Order Comment: Order Date: 09/27/24Order Info: [id number] - CBC Performed By: #### L 500.4050, L100.0500 ####[facility] [address] [place], [address] MCH (RBC) [Entitic mass] 25.8 pg Low 27.0-32.0 [facility] Comment on above: Order Comment: Order Date: 09/27/24Order Info: [id number] - CBC Performed By: #### L 500.4050, L100.0500 ####[facility] [address] [place], [address] MCHC (RBC) [Mass/Vol] 30.8 g/dL Low 32-36 [facility] Comment on above: Order Comment: Order Date: 09/27/24Order Info: [id number] - CBC Performed By: #### L 500.4050, L100.0500 ####[facility] [address] [place], [address] MCV (RBC) [Entitic vol] 83.6 fL Normal 81-99 [facility] Comment on above: Order Comment: Order Date: 09/27/24Order Info: [id number] - CBC Performed By: #### L 500.4050, L100.0500 ####[facility] [address] [place], [address] Platelet mean volume (Bld) [Entitic vol] 11.3 fL Normal 6.2-12.0 [facility] Comment on above: Order Comment: Order Date: 09/27/24Order Info: [id number] - CBC Performed By: #### L 500.4050, L100.0500 ####[facility] [address] [place], [address] Platelets (Bld) [#/Vol] 287 10*3/uL Normal 150-450 [facility] Comment on above: Order Comment: Order Date: 09/27/24Order Info: [id number] - CBC Performed By: #### L 500.4050, L100.0500 ####[facility] [address] [place], [address] RBC (Bld) [#/Vol] 4.27 10*6/uL Normal 4.2-5.4 [facility] Comment on above: Order Comment: Order Date: 09/27/24Order Info: [id number] - CBC Performed By: #### L 500.4050, L100.0500 ####[facility] [address] [place], [address] RDW SD 47.4 fl High 35.1-43.9 [facility] Comment on above: Order Comment: Order Date: 09/27/24Order Info: [id number] - CBC Performed By: #### L 500.4050, L100.0500 ####[facility] [address] [place], [address] WBC (Bld) [#/Vol] 8.6 10*3/uL Normal 4.4-11.0 [facility] Comment on above: Order Comment: Order Date: 09/27/24Order Info: [id number] - CBC Performed By: #### L 500.4050, L100.0500 ####[facility] [address] [place], [address] Carbon dioxide measurementOr dered By: Ramone Smiley on 09-27-2024 CO2 [Moles/Vol] 28.0 mmol/L 21.0-32.0 [facility] Chloride measurementOrdered By: Ramone Smiley on 09-27-2024 Chloride [Moles/Vol] 101 mmol/L 98-107 [facility] Comprehensive Metabolic Prof ilon 09-27-2024 Albumin [Mass/Vol] 3.0 g/dL Low 3.2-5.0 [facility] Comment on above: Order Comment: Order Date: 09/27/24Order Info: [id number] - CMPOrder Info: [id number] - CRE Performed By: #### L 500.4050, L100.0500 ####[facility] [address] [place], [address] Albumin/Globulin [Mass ratio] 0.6 {ratio} Low 0.9-2.4 [facility] Comment on above: Order Comment: Order Date: 09/27/24Order Info: [id number] - CMPOrder Info: [id number] - CRE Performed By: #### L 500.4050, L100.0500 ####[facility] [address] [place], [address] ALK P 145 U/L High 45-117 [facility] Comment on above: Order Comment: Order Date: 09/27/24Order Info: 07-1 - CMPOrder Info: [id number] - CRE Performed By: #### L 500.4050, L100.0500 ####[facility] [address] [place], [address] ALT [Catalytic activity/Vol] 16 U/L Normal 13-56 [facility] Comment on above: Order Comment: Order Date: 09/27/24Order Info: [id number] - CMPOrder Info: [id number] - CRE Performed By: #### L 500.4050, L100.0500 ####[facility] [address] [place], [address] AST [Catalytic activity/Vol] 16 U/L Normal 15-37 [facility] Comment on above: Order Comment: Order Date: 09/27/24Order Info: [id number] - CMPOrder Info: [id number] - CRE Performed By: #### L 500.4050, L100.0500 ####[facility] [address] [place], [address] Bilirubin [Mass/Vol] 0.20 mg/dL Normal 0.20-1.00 [facility] Comment on above: Order Comment: Order Date: 09/27/24Order Info: [id number] - CMPOrder Info: [id number] - CRE Result Comment: For patients on eltrombopag therapy, use of Dimension [facility] TBIL is not recommended. Performed By: #### L 500.4050, L100.0500 ####[facility] [address] [place], [address] BUN/CRE 12.7 RATIO Normal 10-20 [facility] Comment on above: Order Comment: Order Date: 09/27/24Order Info: [id number] - CMPOrder Info: [id number] - CRE Performed By: #### L 500.4050, L100.0500 ####[facility] [address] [place], [address] CA,Total 11.0 mg/dL High 8.5-10.1 [facility] Comment on above: Order Comment: Order Date: 09/27/24Order Info: [id number]- - CMPOrder Info: [id number] - CRE Performed By: #### L 500.4050, L100.0500 ####[facility] [address] [place], [address] Chloride [Moles/Vol] 101 mmol/L Normal 98-107 [facility] Comment on above: Order Comment: Order Date: 09/27/24Order Info: [id number]- - CMPOrder Info: [id number] - CRE Performed By: #### L 500.4050, L100.0500 ####[facility] [address] [place], [address] CO2 [Moles/Vol] 28.0 mmol/L Normal 21.0-32.0 [facility] Comment on above: Order Comment: Order Date: 09/27/24Order Info: [id number] - CMPOrder Info: [id number] - CRE Performed By: #### L 500.4050, L100.0500 ####[facility] [address] [place], [address] Creatinine [Mass/Vol] 0.86 mg/dL Normal 0.55-1.02 [facility] Comment on above: Order Comment: Order Date: 09/27/24Order Info: [id number] - CMPOrder Info: [id number] - CRE Result Comment: The validity of the calculated GFR GFRAA in patients over70 years has not been determined. Clinical correlation isessential. Performed By: #### L 500.4050, L100.0500 ####[facility] [address] [place], [address] EST GFR - AA 81 mL/min Normal >60 [facility] Comment on above: Order Comment: Order Date: 09/27/24Order Info: [id number] - CMPOrder Info: [id number] - CRE Result Comment: Afri can Italian GFR Calc Performed By: #### L 500.4050, L100.0500 ####[facility] [address] [place], [address] GAP 8 Normal 5-15 [facility] Comment on above: Order Comment: Order Date: 09/27/24Order Info: [id number] - CMPOrder Info: [id number] - CRE Performed By: #### L 500.4050, L100.0500 ####[facility] [address] [place], [address] GFR/1.73 sq M.predicted among non-blacks MDRD (S/P/Bld) [Vol rate/Area] 67 mL/min/{1.73_m2} Normal >60 [facility] Comment on above: Order Comment: Order Date: 09/27/24Order Info: [id number] - CMPOrder Info: [id number] - CRE Result Comment: Non- GFR Calc Performed By: #### L 500.4050, L100.0500 ####[facility] [address] [place], [address] Globulin (S) [Mass/Vol] 5.0 g/dL High 2.2-4.2 [facility] Comment on above: Order Comment: Order Date: 09/27/24Order Info: [id number] - CMPOrder Info: [id number] - CRE Performed By: #### L 500.4050, L100.0500 ####[facility] [address] [place], [address] Glucose [Mass/Vol] 144 mg/dL High 74-106 [facility] Comment on above: Order Comment: Order Date: 09/27/24Order Info: [id number] - CMPOrder Info: [id number] - CRE Result Comment: Fast ing Glucose result greater than or equal to 126 mg/dLsuggests DIABETES MELLITUS per A.D.A. criteria. Performed By: #### L 500.4050, L100.0500 ####[facility] [address] [place], [address] Potassium [Moles/Vol] 3.5 mmol/L Normal 3.5-5.1 [facility] Comment on above: Order Comment: Order Date: 09/27/24Order Info: [id number]- - CMPOrder Info: [id number]- - CRE Performed By: #### L 500.4050, L100.0500 ####[facility] [address] [place], [address] Sodium [Moles/Vol] 138 mmol/L Normal 136-145 [facility] Comment on above: Order Comment: Order Date: 09/27/24Order Info: [id number] - CMPOrder Info: [id number]- - CRE Performed By: #### L 500.4050, L100.0500 ####[facility] [address] [place], [address] T PROT 8.0 g/dL Normal 6.4-8.2 [facility] Comment on above: Order Comment: Order Date: 09/27/24Order Info: [id number] - CMPOrder Info: [id number]- - CRE Performed By: #### L 500.4050, L100.0500 ####[facility] [address] [place], [place], [address] Urea nitrogen [Mass/Vol] 11 mg/dL Normal 7-18 [facility] Comment on above: Order Comment: Order Date: 09/27/24Order Info: [id number] - CMPOrder Info: [id number] - CRE Performed By: #### L 500.4050, L100.0500 ####[facility] [address] [place], [address] Erythrocyte distribution wid th ratioOrdered By: Ramone Smiley on 09-27-2024 Erythrocyte distribution width (RBC) [Ratio] 15.9 % High 11.6-14.6 [facility] Erythrocyte distribution wid th standard deviationOrdered By: Ramone Smiley on 09-27-2024 Erythrocyte distribution width (RBC) [Ratio] 47.4 fl High 35.1-43.9 [facility] Glomerular filtration rate ( GFR) estimationOrdered By: Ramone Smiley on 09-27-2024 GFR/1.73 sq M.predicted among non-blacks MDRD (S/P/Bld) [Vol rate/Area] 67 mL/min/{1.73_m2} >60 [facility] Comment on above: Non- GFR Calc Glucose measurementOrdered B y: Ramone Smiley on 09-27-2024 Glucose [Mass/Vol] 144 mg/dL High 74-106 [facility] Comment on above: Fasting Glucose resu lt greater than or equal to 126 mg/dL suggests DIABETES MELLITUS per A.D.A. criteria. Hematocrit Auto (Bld) [Volum e fraction]Ordered By: Ramone Smiley on 09-27-2024 Hematocrit (Bld) [Volume fraction] 35.7 % Low 37-47 [facility] Hemoglobin measurementOrdere d By: Ramone Smiley on 09-27-2024 Hemoglobin (Bld) [Mass/Vol] 11.0 g/dL Low 12.0-15.0 [facility] Laboratory - Chemistry and C hemistry - challengeOrdered By: Ramone Smiley on 09-27-2024 AST [Catalytic activity/Vol] 16 U/L 15-37 [facility] MCV (mean corpuscular volume ) determinationOrdered By: Ramone Smiley on 09-27-2024 MCV (RBC) [Entitic vol] 83.6 fL 81-99 [facility] Mean corpuscular hemoglobin (MCH) determinationOrdered By: Ramone Smiley on 09-27-2024 MCH (RBC) [Entitic mass] 25.8 pg Low 27.0-32.0 [facility] Mean corpuscular hemoglobin concentration (MCHC) determinationOrdered By: Ramone Smiley on 09-27-2024 MCHC (RBC) [Mass/Vol] 30.8 g/dL Low 32-36 [facility] Mean platelet volume determi nationOrdered By: Ramone Smiley on 09-27-2024 Platelet mean volume (Bld) [Entitic vol] 11.3 fL 6.2-12.0 [facility] No Panel InformationOrdered By: Ramone Smiley on 09-27-2024 16 U/L 15-37 [facility] Platelet countOrdered By: Richar Smiley on 09-27-2024 Platelets (Bld) [#/Vol] 287 10*3/uL 150-450 [facility] Potassium measurementOrdered By: Ramone Smiley on 09-27-2024 Potassium [Moles/Vol] 3.5 mmol/L 3.5-5.1 [facility] RBC Auto (Bld) [#/Vol]Ordere d By: Ramone Smiley on 09-27-2024 RBC (Bld) [#/Vol] 4.27 10*6/uL 4.2-5.4 [facility] Serum anion gap measurementO rdered By: Ramone Smiley on 09-27-2024 Anion gap [Moles/Vol] 8 mmol/L 5-15 [facility] Serum globulin measurementOr dered By: Ramone Smiley on 09-27-2024 Globulin (S) [Mass/Vol] 5.0 g/dL High 2.2-4.2 [facility] Serum or plasma alanine kelley otransferase (ALT) measurementOrdered By: Ramone Smiley on 09-27-2024 ALT [Catalytic activity/Vol] 16 U/L 13-56 [facility] Serum or plasma albumin melanie urement (mass/volume)Ordered By: Ramone Smiley on 09-27-2024 Albumin [Mass/Vol] 3.0 g/dL Low 3.2-5.0 [facility] Serum or plasma alkaline lissa sphatase measurementOrdered By: Ramone Smiley on 09-27-2024 ALP [Catalytic activity/Vol] 145 U/L High 45-117 [facility] Serum or plasma calcium melanie urement (mass/volume)Ordered By: Ramone Smiley on 09-27-2024 Calcium [Mass/Vol] 11.0 mg/dL High 8.5-10.1 [facility] Serum or plasma creatinine m easurement (mass/volume)Ordered By: Ramone Smiley on 09-27-2024 Creatinine [Mass/Vol] 0.86 mg/dL 0.55-1.02 [facility] Comment on above: The validity of the calculated GFR & GFRAA in patients over 70 years has not been determined. Clinical correlation is essential. Serum or plasma urea nitroge n measurement (mass/volume)Ordered By: Ramone Smiley on 09-27-2024 Urea nitrogen [Mass/Vol] 11 mg/dL 7-18 [facility] Sodium levelOrdered By: Ramone Smiley on 09-27-2024 Sodium [Moles/Vol] 138 mmol/L 136-145 [facility] Total proteinOrdered By: Lilliam Smiley on 09-27-2024 Protein [Mass/Vol] 8.0 g/dL 6.4-8.2 [facility] White blood cell (WBC) count Ordered By: Ramone Smiley on 09-27-2024 WBC (Bld) [#/Vol] 8.6 10*3/uL 4.4-11.0 [facility] Kidney and Bladderon 024 Kidney and Bladder Normal [facility] BNP,B-Type NATRIURETIC PEPTI Ishaan 06-19-2024 Natriuretic peptide B (Bld) [Mass/Vol] 81.6 pg/mL Normal 0-100 [facility] Comment on above: Performed By: #### L 500.2500, L503.6620, L100.0100 ####[facility] [address] [place], [place], [id number] Basic Metabolic Profile (BMP )on 06-19-2024 BUN/CRE 9.3 RATIO Low 10-20 [facility] Comment on above: Performed By: #### L 500.2500, L503.6620, L100.0100 ####[facility] [address] [place], [address] CA,Total 11.0 mg/dL High 8.5-10.1 [facility] Comment on above: Performed By: #### L 500.2500, L503.6620, L100.0100 ####[facility] [address] [place], [address] Chloride [Moles/Vol] 104 mmol/L Normal 98-107 [facility] Comment on above: Performed By: #### L 500.2500, L503.6620, L100.0100 ####[facility] [address] [place], [address] CO2 [Moles/Vol] 26.0 mmol/L Normal 21.0-32.0 [facility] Comment on above: Performed By: #### L 500.2500, L503.6620, L100.0100 ####[facility] [address] [place], [address] Creatinine [Mass/Vol] 1.08 mg/dL High 0.55-1.02 [facility] Comment on above: Result Comment: The validity of the calculated GFR GFRAA in patients over70 years has not been determined. Clinical correlation isessential. Performed By: #### L 500.2500, L503.6620, L100.0100 ####[facility] [address] [place], [address] EST GFR - AA 63 mL/min Normal >60 [facility] Comment on above: Result Comment: Afri can Italian GFR Calc Performed By: #### L 500.2500, L503.6620, L100.0100 ####[facility] [address] [place], [address] GAP 6 Normal 5-15 [facility] Comment on above: Performed By: #### L 500.2500, L503.6620, L100.0100 ####[facility] [address] [place], [address] GFR/1.73 sq M.predicted among non-blacks MDRD (S/P/Bld) [Vol rate/Area] 52 mL/min/{1.73_m2} Low >60 [facility] Comment on above: Result Comment: Non- GFR Calc Performed By: #### L 500.2500, L503.6620, L100.0100 ####[facility] [address] [place], [address] Glucose [Mass/Vol] 263 mg/dL High 74-106 [facility] Comment on above: Result Comment: Gluc ose result greater than or equal to 200 mg/dLsuggests DIABETES MELLITUS per A.D.A. criteria. Performed By: #### L 500.2500, L503.6620, L100.0100 ####[facility] [address] [place], [address] Potassium [Moles/Vol] 4.4 mmol/L Normal 3.5-5.1 [facility] Comment on above: Performed By: #### L 500.2500, L503.6620, L100.0100 ####[facility] [address] [place], [address] Sodium [Moles/Vol] 137 mmol/L Normal 136-145 [facility] Comment on above: Performed By: #### L 500.2500, L503.6620, L100.0100 ####[facility] [address] [place], [address] Urea nitrogen [Mass/Vol] 10 mg/dL Normal 7-18 [facility] Comment on above: Performed By: #### L 500.2500, L503.6620, L100.0100 ####[facility] [address] [place], [address] CBC W/Diff, Automatedon 10-2 0-2024 Absolute Lymph 2.32 X10 3/uL Normal 0.83-4.51 [facility] Comment on above: Performed By: #### L 500.2500, L503.6620, L100.0100 ####[facility] [address] [place], [address] Absolute Neut 4.7 X10 3/uL Normal 2.0-7.7 [facility] Comment on above: Performed By: #### L 500.2500, L503.6620, L100.0100 ####[facility] [address] [place], [address] Basophils/100 WBC (Bld) 0.5 % Normal 0-1 [facility] Comment on above: Performed By: #### L 500.2500, L503.6620, L100.0100 ####[facility] [address] [place], [address] Eosinophils/100 WBC (Bld) 8.7 % High 0-5 [facility] Comment on above: Performed By: #### L 500.2500, L503.6620, L100.0100 ####[facility] [address] [place], [address] Erythrocyte distribution width (RBC) [Ratio] 16.6 % High 11.6-14.6 [facility] Comment on above: Performed By: #### L 500.2500, L503.6620, L100.0100 ####[facility] [address] [place], [address] Hematocrit (Bld) [Volume fraction] 36.6 % Low 37-47 [facility] Comment on above: Performed By: #### L 500.2500, L503.6620, L100.0100 ####[facility] [address] [place], [address] Hemoglobin (Bld) [Mass/Vol] 11.2 g/dL Low 12.0-15.0 [facility] Comment on above: Performed By: #### L 500.2500, L503.6620, L100.0100 ####[facility] [address] [place], [address] IG% 0.200 Normal 0.0-0.9 [facility] Comment on above: Result Comment: IG% - Immature Granulocytes (promyelocytes, myelocytes andmetamyelocytes) > 1% indicates that a LEFT SHIFT is Present. Performed By: #### L 500.2500, L503.6620, L100.0100 ####[facility] [address] [place], [address] Lymphocytes/100 WBC (Bld) 27.7 % Normal 19-41 [facility] Comment on above: Performed By: #### L 500.2500, L503.6620, L100.0100 ####[facility] [address] [place], [address] MCH (RBC) [Entitic mass] 25.6 pg Low 27.0-32.0 [facility] Comment on above: Performed By: #### L 500.2500, L503.6620, L100.0100 ####[facility] [address] [place], [address] MCHC (RBC) [Mass/Vol] 30.6 g/dL Low 32-36 [facility] Comment on above: Performed By: #### L 500.2500, L503.6620, L100.0100 ####[facility] [address] [place], [address] MCV (RBC) [Entitic vol] 83.8 fL Normal 81-99 [facility] [facility] Comment on above: Performed By: #### L 500.2500, L503.6620, L100.0100 ####[facility] [address] [place], [address] Monocytes/100 WBC (Bld) 6.7 % Normal 0-10 [facility] Comment on above: Performed By: #### L 500.2500, L503.6620, L100.0100 ####[facility] [address] [place], [address] Neutrophils/100 WBC (Bld) 56.2 % Normal 47-70 [facility] Comment on above: Performed By: #### L 500.2500, L503.6620, L100.0100 ####[facility] [address] [place], [address] Nucleated RBC (Bld) [#/Vol] 0 10*3/uL Normal 0-5 [facility] Comment on above: Performed By: #### L 500.2500, L503.6620, L100.0100 ####[facility] [address] [place], [address] Platelet mean volume (Bld) [Entitic vol] 10.4 fL Normal 6.2-12.0 [facility] Comment on above: Performed By: #### L 500.2500, L503.6620, L100.0100 ####[facility] [address] [place], [address] Platelets (Bld) [#/Vol] 234 10*3/uL Normal 150-450 [facility] Comment on above: Performed By: #### L 500.2500, L503.6620, L100.0100 ####[facility] [address] [place], [address] RBC (Bld) [#/Vol] 4.37 10*6/uL Normal 4.2-5.4 [facility] Comment on above: Performed By: #### L 500.2500, L503.6620, L100.0100 ####[facility] [address] [place], [address] RDW SD 50.9 fl High 35.1-43.9 [facility] Comment on above: Performed By: #### L 500.2500, L503.6620, L100.0100 ####[facility] [address] [place], [address] WBC (Bld) [#/Vol] 8.4 10*3/uL Normal 4.4-11.0 [facility] Comment on above: Performed By: #### L 500.2500, L503.6620, L100.0100 ####[facility] [address] [place], [address] Chest 1 View (Portable)on Chest 1 View (Portable) Normal [facility] Emergency Department Summary on 06-19-2024 Emergency Department Summary Normal [facility] 12 Lead EKGon 05-30-2024 12 Lead EKG Normal [facility] BNP,B-Type NATRIURETIC PEPTI Ishaan 05-30-2024 Natriuretic peptide B (Bld) [Mass/Vol] 108.0 pg/mL High 0-100 [facility] Comment on above: Performed By: #### L 100.0100, L503.6620, L500.2500, L501.4020 ####[facility] [address] [place], [address] Basic Metabolic Profile (BMP )on 05-30-2024 BUN/CRE 12.8 RATIO Normal 06-19 [facility] Comment on above: Order Comment: 'TROP ' Serial specimen #1, #2 or #3: 1 Performed By: #### L 100.0100, L503.6620, L500.2500, L501.4020 ####[facility] [address] [place], [address] CA,Total 11.4 mg/dL High 8.5-10.1 [facility] Comment on above: Order Comment: 'TROP ' Serial specimen #1, #2 or #3: 1 Performed By: #### L 100.0100, L503.6620, L500.2500, L501.4020 ####[facility] [address] [place], [address] Chloride [Moles/Vol] 104 mmol/L Normal 98-107 [facility] Comment on above: Order Comment: 'TROP ' Serial specimen #1, #2 or #3: 1 Performed By: #### L 100.0100, L503.6620, L500.2500, L501.4020 ####[facility] [address] [place], [address] CO2 [Moles/Vol] 28.0 mmol/L Normal 21.0-32.0 [facility] Comment on above: Order Comment: 'TROP ' Serial specimen #1, #2 or #3: 1 Performed By: #### L 100.0100, L503.6620, L500.2500, L501.4020 ####[facility] [address] [place], [address] Creatinine [Mass/Vol] 0.93 mg/dL Normal 0.55-1.02 [facility] Comment on above: Order Comment: 'TROP ' Serial specimen #1, #2 or #3: 1 Result Comment: The validity of the calculated GFR GFRAA in patients over70 years has not been determined. Clinical correlation isessential. Performed By: #### L 100.0100, L503.6620, L500.2500, L501.4020 ####[facility] [address] [place], [address] ECRCL 45.88 ml/min Normal [facility] Comment on above: Order Comment: 'TROP ' Serial specimen #1, #2 or #3: 1 Performed By: #### L 100.0100, L503.6620, L500.2500, L501.4020 ####[facility] [address] [place], [address] EST GFR - AA 74 mL/min Normal >60 [facility] Comment on above: Order Comment: 'TROP ' Serial specimen #1, #2 or #3: 1 Result Comment: Afri can Italian GFR Calc Performed By: #### L 100.0100, L503.6620, L500.2500, L501.4020 ####[facility] [address] [place], [address] GAP 7 Normal 5-15 [facility] Comment on above: Order Comment: 'TROP ' Serial specimen #1, #2 or #3: 1 Performed By: #### L 100.0100, L503.6620, L500.2500, L501.4020 ####[facility] [address] [place], [address] GFR/1.73 sq M.predicted among non-blacks MDRD (S/P/Bld) [Vol rate/Area] 61 mL/min/{1.73_m2} Normal >60 [facility] Comment on above: Order Comment: 'TROP ' Serial specimen #1, #2 or #3: 1 Result Comment: Non- GFR Calc Performed By: #### L 100.0100, L503.6620, L500.2500, L501.4020 ####[facility] [address] [place], [address] Glucose [Mass/Vol] 167 mg/dL High 74-106 [facility] Comment on above: Order Comment: 'TROP ' Serial specimen #1, #2 or #3: 1 Result Comment: Fast ing Glucose result greater than or equal to 126 mg/dLsuggests DIABETES MELLITUS per A.D.A. criteria. Performed By: #### L 100.0100, L503.6620, L500.2500, L501.4020 ####[facility] [address] [place], [address] Potassium [Moles/Vol] 4.0 mmol/L Normal 3.5-5.1 [facility] Comment on above: Order Comment: 'TROP ' Serial specimen #1, #2 or #3: 1 Performed By: #### L 100.0100, L503.6620, L500.2500, L501.4020 ####[facility] [address] [place], [address] Sodium [Moles/Vol] 138 mmol/L Normal 136-145 [facility] Comment on above: Order Comment: 'TROP ' Serial specimen #1, #2 or #3: 1 Performed By: #### L 100.0100, L503.6620, L500.2500, L501.4020 ####[facility] [address] [place], [address] Urea nitrogen [Mass/Vol] 12 mg/dL Normal 7-18 [facility] Comment on above: Order Comment: 'TROP ' Serial specimen #1, #2 or #3: 1 Performed By: #### L 100.0100, L503.6620, L500.2500, L501.4020 ####[facility] [address] [place], [address] CBC W/Diff, Automatedon 05-03 PLT EST ADEQUATE Normal ADEQ [facility] Comment on above: Performed By: #### L 100.0100, L503.6620, L500.2500, L501.4020 ####[facility] [address] [place], [address] Chest PA and Lateralon 05-30 Chest PA and Lateral Normal [facility] Emergency Department Summary on 05-30-2024 Emergency Department Summary Normal [facility] L501.4020on 05-30-2024 TROPONIN-I HS 12 pg/mL Normal 3.0-54.0 [facility] Comment on above: Order Comment: 'TROP ' Serial specimen #1, #2 or #3: 1 Result Comment: Sean reyes Note: New Test Units and Gender Specific Reference Ranges. For more information see Policy Stat Procedure [facility] High Sensitivity Troponin (TNIH) and attachments. Performed By: #### L 100.0100, L503.6620, L500.2500, L501.4020 ####[facility] [address] [place], [address] Inital Evaluation (1) - PTon 04-26-2024 Inital Evaluation (1) - PT Normal [facility] CBC W/Diff, Automatedon 03-31 Absolute Lymph 1.93 X10 3/uL Normal 0.83-4.51 [facility] Comment on above: Performed By: #### L 100.0100, L500.4050, L501.9985 ####[facility] [address] [place], [address] Absolute Neut 5.1 X10 3/uL Normal 2.0-7.7 [facility] Comment on above: Performed By: #### L 100.0100, L500.4050, L501.9985 ####[facility] [address] [place], [address] Basophils/100 WBC (Bld) 0.6 % Normal 0-1 [facility] Comment on above: Performed By: #### L 100.0100, L500.4050, L501.9985 ####[facility] [address] [place], [address] Eosinophils/100 WBC (Bld) 3.7 % Normal 0-5 [facility] Comment on above: Performed By: #### L 100.0100, L500.4050, L501.9985 ####[facility] [address] [place], [address] Erythrocyte distribution width (RBC) [Ratio] 16.0 % High 11.6-14.6 [facility] Comment on above: Performed By: #### L 100.0100, L500.4050, L501.9985 ####[facility] [address] [place], [address] Hematocrit (Bld) [Volume fraction] 34.9 % Low 37-47 [facility] Comment on above: Performed By: #### L 100.0100, L500.4050, L501.9985 ####[facility] [address] [place], [address] Hemoglobin (Bld) [Mass/Vol] 10.4 g/dL Low 12.0-15.0 [facility] Comment on above: Performed By: #### L 100.0100, L500.4050, L501.9985 ####[facility] [address] [place], [address] IG% 0.300 Normal 0.0-0.9 [facility] Comment on above: Result Comment: IG% - Immature Granulocytes (promyelocytes, myelocytes andmetamyelocytes) > 1% indicates that a LEFT SHIFT is Present. Performed By: #### L 100.0100, L500.4050, L501.9985 ####[facility] [address] [place], [address] Lymphocytes/100 WBC (Bld) 24.5 % Normal 19-41 [facility] Comment on above: Performed By: #### L 100.0100, L500.4050, L501.9985 ####[facility] [address] [place], [address] MCH (RBC) [Entitic mass] 24.4 pg Low 27.0-32.0 [facility] Comment on above: Performed By: #### L 100.0100, L500.4050, L501.9985 ####[facility] [address] [place], [address] MCHC (RBC) [Mass/Vol] 29.8 g/dL Low 32-36 [facility] Comment on above: Performed By: #### L 100.0100, L500.4050, L501.9985 ####[facility] [address] [place], [address] MCV (RBC) [Entitic vol] 81.9 fL Normal 81-99 [facility] Comment on above: Performed By: #### L 100.0100, L500.4050, L501.9985 ####[facility] [address] [place], [address] Monocytes/100 WBC (Bld) 6.8 % Normal 0-10 [facility] Comment on above: Performed By: #### L 100.0100, L500.4050, L501.9985 ####[facility] [address] [place], [address] Neutrophils/100 WBC (Bld) 64.1 % Normal 47-70 [facility] Comment on above: Performed By: #### L 100.0100, L500.4050, L501.9985 ####[facility] [address] [place], [address] Nucleated RBC (Bld) [#/Vol] 0 10*3/uL Normal 0-5 [facility] Comment on above: Performed By: #### L 100.0100, L500.4050, L501.9985 ####[facility] [address] [place], [address] Platelet mean volume (Bld) [Entitic vol] 10.7 fL Normal 6.2-12.0 [facility] Comment on above: Performed By: #### L 100.0100, L500.4050, L501.9985 ####[facility] [address] [place], [address] Platelets (Bld) [#/Vol] 294 10*3/uL Normal 150-450 [facility] Comment on above: Performed By: #### L 100.0100, L500.4050, L501.9985 ####[facility] [address] [place], [address] RBC (Bld) [#/Vol] 4.26 10*6/uL Normal 4.2-5.4 [facility] Comment on above: Performed By: #### L 100.0100, L500.4050, L501.9985 ####[facility] [address] [place], [address] RDW SD 48.0 fl High 35.1-43.9 [facility] Comment on above: Performed By: #### L 100.0100, L500.4050, L501.9985 ####[facility] [address] [place], [address] WBC (Bld) [#/Vol] 7.9 10*3/uL Normal 4.4-11.0 [facility] Comment on above: Performed By: #### L 100.0100, L500.4050, L501.9985 ####[facility] [address] [place], [address] Comprehensive Metabolic Prof [facility] 04-18-2024 Albumin [Mass/Vol] 3.0 g/dL Low 3.2-5.0 [facility] Comment on above: Performed By: #### L 100.0100, L500.4050, L501.9985 ####[facility] [address] [place], [address] Albumin/Globulin [Mass ratio] 0.6 {ratio} Low 0.9-2.4 [facility] Comment on above: Performed By: #### L 100.0100, L500.4050, L501.9985 ####[facility] [address] [place], [address] ALK P 130 U/L High 45-117 [facility] Comment on above: Performed By: #### L 100.0100, L500.4050, L501.9985 ####[facility] [address] [place], [address] ALT [Catalytic activity/Vol] 14 U/L Normal 13-56 [facility] Comment on above: Performed By: #### L 100.0100, L500.4050, L501.9985 ####[facility] [address] [place], [address] AST [Catalytic activity/Vol] 22 U/L Normal 15-37 [facility] Comment on above: Performed By: #### L 100.0100, L500.4050, L501.9985 ####[facility] [address] [place], [address] Bilirubin [Mass/Vol] 0.30 mg/dL Normal 0.20-1.00 [facility] Comment on above: Result Comment: For patients on eltrombopag therapy, use of Dimension [facility] TBIL is not recommended. Performed By: #### L 100.0100, L500.4050, L501.9985 ####[facility] [address] [place], [address] BUN/CRE 12.5 RATIO Normal 10-20 [facility] Comment on above: Performed By: #### L 100.0100, L500.4050, L501.9985 ####[facility] [address] [place], [address] CA,Total 11.0 mg/dL High 8.5-10.1 [facility] Comment on above: Performed By: #### L 100.0100, L500.4050, L501.9985 ####[facility] [address] [place], [address] Chloride [Moles/Vol] 101 mmol/L Normal 98-107 [facility] Comment on above: Performed By: #### L 100.0100, L500.4050, L501.9985 ####[facility] [address] [place], [address] CO2 [Moles/Vol] 26.0 mmol/L Normal 21.0-32.0 [facility] Comment on above: Performed By: #### L 100.0100, L500.4050, L501.9985 ####[facility] [address] [place], [address] Creatinine [Mass/Vol] 0.96 mg/dL Normal 0.55-1.02 [facility] Comment on above: Result Comment: The validity of the calculated GFR GFRAA in patients over70 years has not been determined. Clinical correlation isessential. Performed By: #### L 100.0100, L500.4050, L501.9985 ####[facility] [address] [place], [address] EST GFR - AA 72 mL/min Normal >60 [facility] Comment on above: Result Comment: Afri can Italian GFR Calc Performed By: #### L 100.0100, L500.4050, L501.9985 ####[facility] [address] [place], [address] GAP 6 Normal 5-15 [facility] Comment on above: Performed By: #### L 100.0100, L500.4050, L501.9985 ####[facility] [address] [place], [address] GFR/1.73 sq M.predicted among non-blacks MDRD (S/P/Bld) [Vol rate/Area] 59 mL/min/{1.73_m2} Low >60 [facility] Comment on above: Result Comment: Non- GFR Calc Performed By: #### L 100.0100, L500.4050, L501.9985 ####[facility] [address] [place], [address] Globulin (S) [Mass/Vol] 5.4 g/dL High 2.2-4.2 [facility] Comment on above: Performed By: #### L 100.0100, L500.4050, L501.9985 ####[facility] [address] [place], [address] Glucose [Mass/Vol] 142 mg/dL High 74-106 [facility] Comment on above: Result Comment: Fast ing Glucose result greater than or equal to 126 mg/dLsuggests DIABETES MELLITUS per A.D.A. criteria. Performed By: #### L 100.0100, L500.4050, L501.9985 ####[facility] [address] [place], [address] Potassium [Moles/Vol] 3.5 mmol/L Normal 3.5-5.1 [facility] Comment on above: Performed By: #### L 100.0100, L500.4050, L501.9985 ####[facility] [address] [place], [address] Sodium [Moles/Vol] 133 mmol/L Low 136-145 [facility] Comment on above: Performed By: #### L 100.0100, L500.4050, L501.9985 ####[facility] [address] [place], [address] T PROT 8.4 g/dL High 6.4-8.2 [facility] Comment on above: Performed By: #### L 100.0100, L500.4050, L501.9985 ####[facility] [address] [place], [address] Urea nitrogen [Mass/Vol] 12 mg/dL Normal 7-18 [facility] Comment on above: Performed By: #### L 100.0100, L500.4050, L501.9985 ####[facility] [address] [place], [address] Hemoglobin A1con 04-18-2024 HbA1c (Bld) [Mass fraction] 8.2 % High 3.8-5.6 [facility] Comment on above: Result Comment: Norm al < 5.7 % Prediabetic 5.7 - 6.4 % Diabetic >or= 6.5 % Please note range changes. Performed By: #### L 100.0100, L500.4050, L501.9985 ####[facility] [address] [place], [address] Absolute lymphocyte countOrd ered By: Sunny Bell on 12-30-2023 Lymphocytes Auto (Unsp spec) [#/Vol] 2.48 10*3/uL 0.83-4.51 [facility] Automated lymphocyte count a s percentage of total leukocytesOrdered By: Sunny Bell on 12-30-2023 Lymphocytes/100 WBC Auto (Unsp spec) 25.3 % 19-41 [facility] Basophil percentageOrdered B y: Sunny Bell on 12-30-2023 Basophils/100 WBC (Bld) 0.3 % 0-1 [facility] Chloride [Moles/Vol] 104 mmol/L 98-107 [facility] Eosinophils/100 WBC (Bld) 1.4 % 0-5 [facility] Glucose [Mass/Vol] 127 mg/dL 74-106 [facility] Comment on above: Fasting Glucose resu lt greater than or equal to 126 mg/dL suggests DIABETES MELLITUS per A.D.A. criteria. Hemoglobin (Bld) [Mass/Vol] 10.7 g/dL 12.0-15.0 [facility] Monocytes/100 WBC (Bld) 8.7 % 0-10 [facility] Neutrophils (Bld) [#/Vol] 6.3 10*3/uL 2.0-7.7 [facility] Neutrophils/100 WBC (Bld) 63.9 % 47-70 [facility] Potassium [Moles/Vol] 4.4 mmol/L 3.5-5.1 [facility] Sodium [Moles/Vol] 135 mmol/L 136-145 [facility] WBC (Bld) [#/Vol] 9.8 10*3/uL 4.4-11.0 [facility] Determination of erythrocyte mean corpuscular volume (MCV)Ordered By: Sunny Bell on 12-30-2023 MCV (RBC) [Entitic vol] 84.9 fL 81-99 [facility] Erythrocyte distribution wid th ratioOrdered By: Sunny Bell on 12-30-2023 Erythrocyte distribution width (RBC) [Ratio] 15.5 % 11.6-14.6 [facility] Erythrocyte distribution wid th standard deviationOrdered By: Sunny Bell on 12-30-2023 Erythrocyte distribution width (RBC) [Entitic vol] 47.9 fL 35.1-43.9 [facility] Hematocrit Auto (Bld) [Volum e fraction]Ordered By: Sunny Bell on 12-30-2023 Hematocrit (Bld) [Volume fraction] 33.8 % 37-47 [facility] Immature granulocytes/100 WB C Auto (Bld)Ordered By: Sunny Bell on 12-30-2023 Immature granulocytes/100 WBC (Bld) 0.400 % 0.0-0.9 [facility] Comment on above: IG% - Immature Granu locytes (promyelocytes, myelocytes and metamyelocytes) > 1% indicates that a LEFT SHIFT is Present. Laboratory - Chemistry and C hemistry - challengeOrdered By: Sunny Bell on 12-30-2023 CO2 [Moles/Vol] 27.0 mmol/L 21.0-32.0 [facility] Urea nitrogen/Creatinine [Mass ratio] 21.3 mg/mg 10-20 [facility] Laboratory - Hematology and Cell countsOrdered By: Sunny Bell on 12-30-2023 MCH (RBC) [Entitic mass] 26.9 pg 27.0-32.0 [facility] MCHC (RBC) [Mass/Vol] 31.7 g/dL 32-36 [facility] Nucleated RBC/100 WBC (Bld) [Ratio] 0 % 0-5 [facility] Platelet mean volume (Bld) [Entitic vol] 11.3 fL 6.2-12.0 [facility] Platelets (Bld) [#/Vol] 191 10*3/uL 150-450 [facility] No Panel InformationOrdered By: Sunny Bell on 12-30-2023 Estimated Creatinine Clearance Calc 40.01 ml/min [facility] Estimated GFR (MDRD) Amer 63 mL/min >60 [facility] Comment on above: GFR Calc Estimated GFR (MDRD) Non-Af Amer 52 mL/min >60 [facility] Comment on above: Non- GFR Calc RBC Auto (Bld) [#/Vol]Ordere d By: Sunny Bell on 12-30-2023 RBC (Bld) [#/Vol] 3.98 10*6/uL 4.2-5.4 [facility] Serum or plasma calcium melanie urement (mass/volume)Ordered By: Sunny Bell on 12-30-2023 Calcium [Mass/Vol] 11.3 mg/dL 8.5-10.1 [facility] Serum or plasma creatinine m easurement (mass/volume)Ordered By: Sunny Bell on 12-30-2023 Creatinine [Mass/Vol] 1.08 mg/dL 0.55-1.02 [facility] Comment on above: The validity of the calculated GFR & GFRAA in patients over 70 years has not been determined. Clinical correlation is essential. Serum or plasma urea nitroge n measurement (mass/volume)Ordered By: Sunny Bell on 12-30-2023 Urea nitrogen [Mass/Vol] 23 mg/dL 7-18 [facility] Thin prep Papanicolaou smear with manual screeningOrdered By: Sunny Bell on 12-30-2023 Thin prep Papanicolaou smear with manual screening 78 mg/dL 74-106 [facility] Comment on above: MANAGEMENT OF PATIEN T CARE PER NURSING PROTOCOL Thin prep Papanicolaou smear with manual screening 4 5-15 [facility] Basophil percentageOrdered B y: Sunny Bell on 12-28-2023 Basophil percentage 3.0 mg/dL 2.5-4.9 [facility] No Panel InformationOrdered By: Nestor Bartlett on 12-28-2023 Parathyroid Hormone (Intact) 177.6 pg/mL 18.4-80.1 [facility] Absolute lymphocyte countOrd ered By: Queta Cortez on 12-27-2023 Lymphocytes Auto (Unsp spec) [#/Vol] 3.04 10*3/uL 0.83-4.51 [facility] Activated partial thrombopla stin time (aPTT) in platelet poor plasma by coagulation aOrdered By: Queta Cortez on 12-27-2023 aPTT Coag (PPP) [Time] 27.3 s 24.1-36.2 [place] Automated lymphocyte count a s percentage of total leukocytesOrdered By: Queta Cortez on 12-27-2023 Lymphocytes/100 WBC Auto (Unsp spec) 37.1 % 19-41 [facility] Basophil percentageOrdered B y: Queta Cortez on 12-27-2023 Basophils/100 WBC (Bld) 0.5 % 0-1 [facility] Chloride [Moles/Vol] 103 mmol/L 98-107 [facility] Eosinophils/100 WBC (Bld) 3.1 % 0-5 [facility] Glucose [Mass/Vol] 254 mg/dL 74-106 [facility] Comment on above: Glucose result great er than or equal to 200 mg/dLsuggests DIABETES MELLITUS per A.D.A. criteria. Hemoglobin (Bld) [Mass/Vol] 12.4 g/dL 12.0-15.0 [facility] Monocytes/100 WBC (Bld) 6.6 % 0-10 [facility] Neutrophils (Bld) [#/Vol] 4.2 10*3/uL 2.0-7.7 [facility] Neutrophils/100 WBC (Bld) 51.7 % 47-70 [facility] Potassium [Moles/Vol] 4.2 mmol/L 3.5-5.1 [facility] Sodium [Moles/Vol] 136 mmol/L 136-145 [facility] WBC (Bld) [#/Vol] 8.2 10*3/uL 4.4-11.0 [facility] Determination of erythrocyte mean corpuscular volume (MCV)Ordered By: Queta Cortez on 12-27-2023 MCV (RBC) [Entitic vol] 85.2 fL 81-99 [facility] Erythrocyte distribution wid th ratioOrdered By: Queta Cortez on 12-27-2023 Erythrocyte distribution width (RBC) [Ratio] 15.5 % 11.6-14.6 [facility] Erythrocyte distribution wid th standard deviationOrdered By: Queta Cortez on 12-27-2023 Erythrocyte distribution width (RBC) [Entitic vol] 47.0 fL 35.1-43.9 [facility] Hematocrit Auto (Bld) [Volum e fraction]Ordered By: Queta Cortez on 12-27-2023 Hematocrit (Bld) [Volume fraction] 39.8 % 37-47 [facility] Immature granulocytes/100 WB C Auto (Bld)Ordered By: Queta Cortez on 12-27-2023 Immature granulocytes/100 WBC (Bld) 1.000 % 0.0-0.9 [facility] Comment on above: IG% - Immature Granu locytes (promyelocytes, myelocytes and metamyelocytes) > 1% indicates that a LEFT SHIFT is Present. Laboratory - Chemistry and C hemistry - challengeOrdered By: Queta Cortez on 12-27-2023 CO2 [Moles/Vol] 29.0 mmol/L 21.0-32.0 [facility] Urea nitrogen/Creatinine [Mass ratio] 18.5 mg/mg 10-20 [facility] Laboratory - CoagulationOrde red By: Queta Cortez on 12-27-2023 INR Coag (Bld) [Relative time] 1.1 {INR} [facility] PT Coag (PPP) [Time] 13.7 s 11.7-14.9 [facility] Laboratory - Hematology and Cell countsOrdered By: Queta Cortez on 12-27-2023 MCH (RBC) [Entitic mass] 26.6 pg 27.0-32.0 [facility] MCHC (RBC) [Mass/Vol] 31.2 g/dL 32-36 [facility] Nucleated RBC/100 WBC (Bld) [Ratio] 0 % 0-5 [facility] Platelet mean volume (Bld) [Entitic vol] 11.5 fL 6.2-12.0 [facility] Platelets (Bld) [#/Vol] 237 10*3/uL 150-450 [facility] No Panel InformationOrdered By: Queta Cortez on 12-27-2023 Estimated Creatinine Clearance Calc 37.33 ml/min [facility] Estimated GFR (MDRD) Amer 56 mL/min >60 [facility] Comment on above: GFR Calc Estimated GFR (MDRD) Non-Af Amer 46 mL/min >60 [facility] Comment on above: Non- GFR Calc RBC Auto (Bld) [#/Vol]Ordere d By: Queta Cortez on 12-27-2023 RBC (Bld) [#/Vol] 4.67 10*6/uL 4.2-5.4 [facility] Serum or plasma calcium melanie urement (mass/volume)Ordered By: Queta Cortez on 12-27-2023 Calcium [Mass/Vol] 11.2 mg/dL 8.5-10.1 [facility] Serum or plasma creatinine m easurement (mass/volume)Ordered By: Queta Cortez on 12-27-2023 Creatinine [Mass/Vol] 1.19 mg/dL 0.55-1.02 [facility] Comment on above: The validity of the calculated GFR & GFRAA in patients over 70 years has not been determined. Clinical correlation is essential. Serum or plasma urea nitroge n measurement (mass/volume)Ordered By: Queta Cortez on 12-27-2023 Urea nitrogen [Mass/Vol] 22 mg/dL 7-18 [facility] Thin prep Papanicolaou smear with manual screeningOrdered By: Queta Cortez on 12-27-2023 Thin prep Papanicolaou smear with manual screening 4 5-15 [facility] Whole blood hemoglobin A1c/t otal hemoglobin ratio (mass fraction)Ordered By: Nestor Bartlett on 12-27-2023 HbA1c (Bld) [Mass fraction] 9.4 % 3.8-5.6 [facility] Comment on above: Normal < 5.7 % Predi abetic 5.7 - 6.4 % Diabetic >or= 6.5 % Please note range changes. Absolute lymphocyte countOrd ered By: Ramone Smiley on 10-26-2023 Lymphocytes Auto (Unsp spec) [#/Vol] 2.86 10*3/uL 0.83-4.51 [facility] Automated lymphocyte count a s percentage of total leukocytesOrdered By: Ramone Smiley on 10-26-2023 Lymphocytes/100 WBC Auto (Unsp spec) 31.9 % 19-41 [facility] Basophil percentageOrdered B y: Ramone Smiley on 10-26-2023 Basophils/100 WBC (Bld) 0.6 % 0-1 [facility] Bilirubin [Mass/Vol] 0.30 mg/dL 0.20-1.00 [facility] Comment on above: For patients on eltr ombopag therapy, use of Dimension [facility] TBIL is not recommended. Chloride [Moles/Vol] 101 mmol/L 98-107 [facility] Eosinophils/100 WBC (Bld) 2.6 % 0-5 [facility] Glucose [Mass/Vol] 135 mg/dL 74-106 [facility] Comment on above: Fasting Glucose resu lt greater than or equal to 126 mg/dL suggests DIABETES MELLITUS per A.D.A. criteria. Hemoglobin (Bld) [Mass/Vol] 10.9 g/dL 12.0-15.0 [facility] Monocytes/100 WBC (Bld) 8.0 % 0-10 [facility] Neutrophils (Bld) [#/Vol] 5.1 10*3/uL 2.0-7.7 [facility] Neutrophils/100 WBC (Bld) 56.6 % 47-70 [facility] Potassium [Moles/Vol] 4.5 mmol/L 3.5-5.1 [facility] Protein [Mass/Vol] 8.6 g/dL 6.4-8.2 [facility] Sodium [Moles/Vol] 134 mmol/L 136-145 [facility] WBC (Bld) [#/Vol] 9.0 10*3/uL 4.4-11.0 [facility] Determination of erythrocyte mean corpuscular volume (MCV)Ordered By: Ramone Smiley on 10-26-2023 MCV (RBC) [Entitic vol] 85.8 fL 81-99 [facility] Erythrocyte distribution wid th ratioOrdered By: Ramone Smiley on 10-26-2023 Erythrocyte distribution width (RBC) [Ratio] 17.5 % 11.6-14.6 [facility] Erythrocyte distribution wid th standard deviationOrdered By: Ramone Smiley on 10-26-2023 Erythrocyte distribution width (RBC) [Entitic vol] 55.2 fL 35.1-43.9 [facility] Hematocrit Auto (Bld) [Volum e fraction]Ordered By: Ramone Smiley on 10-26-2023 Hematocrit (Bld) [Volume fraction] 36.2 % 37-47 [facility] Immature granulocytes/100 WB C Auto (Bld)Ordered By: Ramone Smiley on 10-26-2023 Immature granulocytes/100 WBC (Bld) 0.300 % 0.0-0.9 [facility] Comment on above: IG% - Immature Granu locytes (promyelocytes, myelocytes and metamyelocytes) > 1% indicates that a LEFT SHIFT is Present. Laboratory - Chemistry and C hemistry - challengeOrdered By: Ramone Smiley on 10-26-2023 Albumin/Globulin [Mass ratio] 0.6 {ratio} 0.9-2.4 [facility] ALP [Catalytic activity/Vol] 109 U/L 45-117 [facility] ALT [Catalytic activity/Vol] 17 U/L 13-56 [facility] CO2 [Moles/Vol] 27.0 mmol/L 21.0-32.0 [facility] Cobalamin (Vitamin B12) [Mass/Vol] 654 pg/mL 211-911 [facility] Ferritin [Mass/Vol] 99 ng/mL 8-252 [facility] Globulin (S) [Mass/Vol] 5.4 g/dL 2.2-4.2 [facility] Urea nitrogen/Creatinine [Mass ratio] 17.6 mg/mg 10-20 [facility] Laboratory - Hematology and Cell countsOrdered By: Ramone Smiley on 10-26-2023 MCH (RBC) [Entitic mass] 25.8 pg 27.0-32.0 [facility] MCHC (RBC) [Mass/Vol] 30.1 g/dL 32-36 [facility] Nucleated RBC/100 WBC (Bld) [Ratio] 0 % 0-5 [facility] Platelet mean volume (Bld) [Entitic vol] 11.6 fL 6.2-12.0 [facility] Platelets (Bld) [#/Vol] 268 10*3/uL 150-450 [facility] No Panel InformationOrdered By: Ramone Smiley on 10-26-2023 Estimated GFR (MDRD) Amer 67 mL/min >60 [facility] Comment on above: GFR Calc Estimated GFR (MDRD) Non-Af Amer 55 mL/min >60 [facility] Comment on above: Non- GFR Calc Folate 23.70 ng/mL 3.1-55.4 [facility] Vitamin D 25-Hydroxy 34.5 ng/mL [facility] Comment on above: Vitamin D 25(OH) Sta tus Range Deficiency <20 ng/mL (50nmol/L) Insufficiency 20 - 30 ng/mL (50 - 75 nmol/L) Sufficiency 30 - 100 ng/mL (75 - 250 nmol/L) Toxicity >100 ng/mL (>250 nmol/L) RBC Auto (Bld) [#/Vol]Ordere d By: Ramone Smiley on 10-26-2023 RBC (Bld) [#/Vol] 4.22 10*6/uL 4.2-5.4 [facility] Serum or plasma calcium melanie urement (mass/volume)Ordered By: Ramone Smiley on 10-26-2023 Calcium [Mass/Vol] 11.2 mg/dL 8.5-10.1 [facility] Serum or plasma creatinine m easurement (mass/volume)Ordered By: Ramone Smiley on 10-26-2023 Creatinine [Mass/Vol] 1.02 mg/dL 0.55-1.02 [facility] Comment on above: The validity of the calculated GFR & GFRAA in patients over 70 years has not been determined. Clinical correlation is essential. Serum or plasma thyroid stim ulating hormone (TSH) measurement (units/volume)Ordered By: Ramone Smiley on 10-26-2023 TSH Qn 0.66 uIU/mL 0.358-3.74 [facility] Serum or plasma urea nitroge n measurement (mass/volume)Ordered By: Ramone Smiley on 10-26-2023 Urea nitrogen [Mass/Vol] 18 mg/dL 7-18 [facility] Thin prep Papanicolaou smear with manual screeningOrdered By: Ramone Smiley on 10-26-2023 Thin prep Papanicolaou smear with manual screening 3.2 g/dL 3.2-5.0 [facility] Thin prep Papanicolaou smear with manual screening 18 U/L 15-37 [facility] Thin prep Papanicolaou smear with manual screening 6 5-15 [facility] Whole blood hemoglobin A1c/t otal hemoglobin ratio (mass fraction)Ordered By: Ramone Smiley on 10-26-2023 HbA1c (Bld) [Mass fraction] 8.2 % 3.8-5.6 [facility] Comment on above: Normal < 5.7 % Predi abetic 5.7 - 6.4 % Diabetic >or= 6.5 % Please note range changes. Basophil percentageOrdered B y: Nestor Bartlett on 08-17-2023 Chloride [Moles/Vol] 105 mmol/L 98-107 [facility] Glucose [Mass/Vol] 167 mg/dL 74-106 [facility] Comment on above: Fasting Glucose resu lt greater than or equal to 126 mg/dL suggests DIABETES MELLITUS per A.D.A. criteria. Potassium [Moles/Vol] 4.9 mmol/L 3.5-5.1 [facility] Sodium [Moles/Vol] 139 mmol/L 136-145 [facility] WBC (Bld) [#/Vol] 8.4 10*3/uL 4.4-11.0 [facility] Blood erythrocytes count (nu mber/volume)Ordered By: Nestor Bartlett on 08-17-2023 RBC (Bld) [#/Vol] 3.41 10*6/uL 4.2-5.4 [facility] Blood hemoglobin measurement (mass/volume)Ordered By: Nestor Bartlett on 08-17-2023 Hemoglobin (Bld) [Mass/Vol] 8.9 g/dL 12.0-15.0 [facility] Blood platelet mean volumeOr dered By: Nestor Bartlett on 08-17-2023 Platelet mean volume (Bld) [Entitic vol] 10.4 fL 6.2-12.0 [facility] Determination of erythrocyte mean corpuscular volume (MCV)Ordered By: Nestor Bartlett on 08-17-2023 MCV (RBC) [Entitic vol] 84.5 fL 81-99 [facility] Glucose Glucometer (BldC) [M ass/Vol]Ordered By: Sandeep Denson on 08-17-2023 Glucose [Mass/Vol] 267 mg/dL 74-106 [facility] Comment on above: MANAGEMENT OF PATIEN T CARE PER NURSING PROTOCOL Hematocrit Auto (Bld) [Volum e fraction]Ordered By: Nestor Bartlett on 08-17-2023 Hematocrit (Bld) [Volume fraction] 28.8 % 37-47 [facility] Laboratory - Chemistry and C hemistry - challengeOrdered By: Nestor Bartlett on 08-17-2023 CO2 [Moles/Vol] 30.0 mmol/L 21.0-32.0 [facility] Urea nitrogen/Creatinine [Mass ratio] 19.9 mg/mg 10-20 [facility] Laboratory - Hematology and Cell countsOrdered By: Nestor Bartlett on 08-17-2023 Erythrocyte distribution width (RBC) [Entitic vol] 55.6 fL 35.1-43.9 [facility] Erythrocyte distribution width (RBC) [Ratio] 17.9 % 11.6-14.6 [facility] MCH (RBC) [Entitic mass] 26.1 pg 27.0-32.0 [facility] MCHC Auto (RBC) [Mass/Vol]Or dered By: Nestor Bartlett on 08-17-2023 MCHC (RBC) [Mass/Vol] 30.9 g/dL 32-36 [facility] No Panel InformationOrdered By: Nestor Bartlett on 08-17-2023 Estimated Creatinine Clearance Calc 41.47 ml/min [facility] Estimated GFR (MDRD) Amer 77 mL/min >60 [facility] Comment on above: GFR Calc Estimated GFR (MDRD) Non-Af Amer 64 mL/min >60 [facility] Comment on above: Non- GFR Calc Platelets bldOrdered By: Neida Bartlett on 08-17-2023 Platelets (Bld) [#/Vol] 480 10*3/uL 150-450 [facility] Serum or plasma calcium melanie urement (mass/volume)Ordered By: Nestor Bartlett on 08-17-2023 Calcium [Mass/Vol] 10.6 mg/dL 8.5-10.1 [facility] Serum or plasma creatinine m easurement (mass/volume)Ordered By: Nestor Bartlett on 08-17-2023 Creatinine [Mass/Vol] 0.91 mg/dL 0.55-1.02 [facility] Comment on above: The validity of the calculated GFR & GFRAA in patients over 70 years has not been determined. Clinical correlation is essential. Serum or plasma urea nitroge n measurement (mass/volume)Ordered By: Nestor Bartlett on 08-17-2023 Urea nitrogen [Mass/Vol] 18 mg/dL 7-18 [facility] Thin prep Papanicolaou smear with manual screeningOrdered By: Nestor Bartlett on 08-17-2023 Thin prep Papanicolaou smear with manual screening 4 5-15 [facility] Absolute lymphocyte countOrd ered By: Heydi Amaya on 08-14-2023 Lymphocytes Auto (Unsp spec) [#/Vol] 1.25 10*3/uL 0.83-4.51 [facility] Basophil percentageOrdered B y: Heydi Amaya on 08-14-2023 Basophil percentage 1.7 mg/dL 2.5-4.9 [facility] Basophils/100 WBC (Bld) 0.3 % 0-1 [facility] Eosinophils/100 WBC (Bld) 0.6 % 0-5 [facility] Neutrophils (Bld) [#/Vol] 9.0 10*3/uL 2.0-7.7 [facility] Neutrophils/100 WBC (Bld) 79.7 % 47-70 [facility] Blood lymphocytes/100 leukoc ytesOrdered By: Heydi Amaya on 08-14-2023 Lymphocytes/100 WBC (Bld) 11.1 % 19-41 [facility] Blood monocytes/100 leukocyt esOrdered By: Heydi Amaya on 08-14-2023 Monocytes/100 WBC (Bld) 6.1 % 0-10 [facility] Iron measurement (mass/mass) Ordered By: Nestor Bartlett on 08-14-2023 Iron (Unsp spec) [Mass/Mass] 14 ug/dL 50-170 [facility] Laboratory - Chemistry and C hemistry - challengeOrdered By: Nestor Bartlett on 08-14-2023 Cobalamin (Vitamin B12) [Mass/Vol] 250 pg/mL 211-911 [facility] Laboratory - Chemistry and C hemistry - challengeOrdered By: Heydi Amaya on 08-14-2023 Free T4 [Mass/Vol] 1.51 ng/dL 0.76-1.46 [facility] Magnesium [Mass/Vol] 2.1 mg/dL 1.6-2.6 [facility] Laboratory - Hematology and Cell countsOrdered By: Heydi Amaya on 08-14-2023 Immature granulocytes/100 WBC (Bld) 2.200 % 0.0-0.9 [facility] Comment on above: IG% - Immature Granu locytes (promyelocytes, myelocytes and metamyelocytes) > 1% indicates that a LEFT SHIFT is Present. Nucleated RBC/100 WBC (Bld) [Ratio] 0 % 0-5 [facility] No Panel InformationOrdered By: Heydi Amaya on 08-14-2023 Free Triiodothyronine (T3) pg/dL 1.9 pg/mL 2.18-3.98 [facility] Parathyroid Hormone (Intact) 153.7 pg/mL 18.4-80.1 [facility] Thyroid Stimulating Hormone (TSH) 0.01 uIU/mL 0.358-3.74 [facility] Vitamin D 25-Hydroxy 39.9 ng/mL [facility] Comment on above: Vitamin D 25(OH) Sta tus Range Deficiency <20 ng/mL (50nmol/L) Insufficiency 20 - 30 ng/mL (50 - 75 nmol/L) Sufficiency 30 - 100 ng/mL (75 - 250 nmol/L) Toxicity >100 ng/mL (>250 nmol/L) No Panel InformationOrdered By: Nestor Bartlett on 08-14-2023 Total Iron Binding Capacity 197 ug/dL 250-450 [facility] Serum or plasma ferritin rubina surement (mass/volume)Ordered By: Nestor Bartlett on 08-14-2023 Ferritin [Mass/Vol] 1578 ng/mL 8-252 [facility] Serum or plasma folate measu rement (mass/volume)Ordered By: Nestor Bartlett on 08-14-2023 Folate [Mass/Vol] 2.90 ng/mL 3.1-55.4 [facility] Serum or plasma iron saturat ion measurement (mass fraction)Ordered By: Nestor Bartlett on 12-15-2023 Iron saturation [Mass fraction] 7.1 % 15.0-55.0 [facility] Thin prep Papanicolaou smear with manual screeningOrdered By: Heydi Amaya on 08-14-2023 Thin prep Papanicolaou smear with manual screening 285 mOsm/KG 280-301 [facility] Absolute lymphocyte countOrd ered By: Robert Allison on 08-13-2023 Lymphocytes Auto (Unsp spec) [#/Vol] 1.37 10*3/uL 0.83-4.51 [facility] Basophil percentageOrdered B y: Robert Allison on 08-13-2023 Basophil percentage 10-25 SEEN /hpf 0-5 [facility] Lactate [Moles/Vol] 1.2 mmol/L 0.4-2.0 [facility] Basophils/100 WBC (Bld) 0.3 % 0-1 [facility] Bilirubin [Mass/Vol] 0.60 mg/dL 0.20-1.00 [facility] Comment on above: For patients on eltr ombopag therapy, use of Dimension [facility] TBIL is not recommended. Chloride [Moles/Vol] 92 mmol/L 98-107 [facility] Eosinophils/100 WBC (Bld) 0.1 % 0-5 [facility] Glucose [Mass/Vol] 212 mg/dL 74-106 [facility] Comment on above: Glucose result great er than or equal to 200 mg/dLsuggests DIABETES MELLITUS per A.D.A. criteria. Neutrophils (Bld) [#/Vol] 12.1 10*3/uL 2.0-7.7 [facility] Neutrophils/100 WBC (Bld) 82.7 % 47-70 [facility] Potassium [Moles/Vol] 3.8 mmol/L 3.5-5.1 [facility] Comment on above: Moderate Hemolysis, Result may be falsely increased. Protein [Mass/Vol] 7.8 g/dL 6.4-8.2 [facility] Sodium [Moles/Vol] 127 mmol/L 136-145 [facility] WBC (Bld) [#/Vol] 14.7 10*3/uL 4.4-11.0 [facility] Bilirubin Test strip Ql (U)O rdered By: Robert Allison on 08-13-2023 Bilirubin Ql (U) Negative Negative [facility] Blood erythrocytes count (nu mber/volume)Ordered By: Robert Allison on 08-13-2023 RBC (Bld) [#/Vol] 3.83 10*6/uL 4.2-5.4 [facility] Blood hemoglobin measurement (mass/volume)Ordered By: Robert Allison on 08-13-2023 Hemoglobin (Bld) [Mass/Vol] 10.0 g/dL 12.0-15.0 [facility] Blood lymphocytes/100 leukoc ytesOrdered By: Robert Allison on 08-13-2023 Lymphocytes/100 WBC (Bld) 9.4 % 19-41 [facility] Blood monocytes/100 leukocyt esOrdered By: Robert Allison on 08-13-2023 Monocytes/100 WBC (Bld) 6.1 % 0-10 [facility] Blood platelet mean volumeOr dered By: Robert Allison on 08-13-2023 Platelet mean volume (Bld) [Entitic vol] 10.8 fL 6.2-12.0 [facility] Culture, urineOrdered By: Ester Allison on 08-13-2023 Bacteria identified Cx Nom (U) Klebsiella pneumoniae sp pneum [facility] Determination of erythrocyte mean corpuscular volume (MCV)Ordered By: Robert Allison on 08-13-2023 MCV (RBC) [Entitic vol] 85.1 fL 81-99 [facility] Hematocrit Auto (Bld) [Volum e fraction]Ordered By: Robert Allison on 08-13-2023 Hematocrit (Bld) [Volume fraction] 32.6 % 37-47 [facility] Influenza virus A and B and SARS-CoV-2 (COVID-19) Ag panel - Upper respiratory specimOrdered By: Robert Allison on 08-13-2023 SARS-CoV-2 (COVID-19) RNA BEBETO+probe Ql (Resp) [facility] Ketones Test strip Ql (U)Ord ered By: Robert Allison on 08-13-2023 Ketones Ql (U) 50 mg/dl Negative [facility] Laboratory - Chemistry and C hemistry - challengeOrdered By: Heydi Amaya on 08-13-2023 Sodium (U) [Moles/Vol] 24 mmol/L Not Establ. [facility] Laboratory - Chemistry and C hemistry - challengeOrdered By: Robert Allison on 08-13-2023 ALP [Catalytic activity/Vol] 105 U/L 45-117 [facility] ALT [Catalytic activity/Vol] 29 U/L 13-56 [facility] CO2 [Moles/Vol] 23.0 mmol/L 21.0-32.0 [facility] Globulin (S) [Mass/Vol] 5.6 g/dL 2.2-4.2 [facility] Urea nitrogen/Creatinine [Mass ratio] 26.3 mg/mg 10-20 [facility] Laboratory - Hematology and Cell countsOrdered By: Robert Allison on 08-13-2023 Erythrocyte distribution width (RBC) [Entitic vol] 53.7 fL 35.1-43.9 [facility] Erythrocyte distribution width (RBC) [Ratio] 17.2 % 11.6-14.6 [facility] Immature granulocytes/100 WBC (Bld) 1.400 % 0.0-0.9 [facility] Comment on above: IG% - Immature Granu locytes (promyelocytes, myelocytes and metamyelocytes) > 1% indicates that a LEFT SHIFT is Present. 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 [facility] Urine Urea Nitrogen 334 mg/dL NO RANGE EST. [facility] No Panel InformationOrdered By: Robert Espinomasood on 08-13-2023 Estimated Creatinine Clearance Calc 31.98 ml/min [facility] Estimated GFR (MDRD) Amer 57 mL/min >60 [facility] Comment on above: GFR Calc Estimated GFR (MDRD) Non-Af Amer 47 mL/min >60 [facility] Comment on above: Non- GFR Calc Troponin I High Sensitivity 39 pg/mL 3.0-54.0 [facility] Comment on above: Please Note: New Rosi t Units and Gender Specific Reference Ranges. For more information see Policy Stat Procedure [facility] High Sensitivity Troponin (TNIH) and attachments. Platelets bldOrdered By: Harriet Espinomasood on 08-13-2023 Platelets (Bld) [#/Vol] 412 10*3/uL 150-450 [facility] Protein Test strip Ql (U)Ord ered By: Robert Espinomasood on 08-13-2023 Protein Ql (U) 30 mg/dl Negative [facility] Serum or plasma albumin melanie urement (mass/volume)Ordered By: Robert Espinomasood on 08-13-2023 Albumin [Mass/Vol] 2.2 g/dL 3.2-5.0 [facility] Serum or plasma albumin/glob ulin mass ratioOrdered By: [facility] on 08-13-2023 Albumin/Globulin [Mass ratio] 0.4 {ratio} 0.9-2.4 [facility] Serum or plasma calcium melanie urement (mass/volume)Ordered By: [facility] on 08-13-2023 Calcium [Mass/Vol] 10.5 mg/dL 8.5-10.1 [facility] Serum or plasma creatinine m easurement (mass/volume)Ordered By: [facility] on 08-13-2023 Creatinine [Mass/Vol] 1.18 mg/dL 0.55-1.02 [facility] Comment on above: The validity of the calculated GFR & GFRAA in patients over 70 years has not been determined. Clinical correlation is essential. Serum or plasma urea nitroge n measurement (mass/volume)Ordered By: Robert Allison on 08-13-2023 Urea nitrogen [Mass/Vol] 31 mg/dL 7-18 [facility] Squamous epithelial cells de tection in urine sediment by light microscopyOrdered By: Robert Allison on 08-13-2023 Epithelial cells.squamous LM Ql (Urine sed) 0 SEEN /hpf 5-10 [facility] Thin prep Papanicolaou smear with manual screeningOrdered By: Heydi Amaya on 08-13-2023 Thin prep Papanicolaou smear with manual screening 20 mmol/L Not Establ. [facility] Thin prep Papanicolaou smear with manual screeningOrdered By: Robert Allison on 08-13-2023 Thin prep Papanicolaou smear with manual screening 36 U/L [facility] Comment on above: Moderate Hemolysis, Result may be falsely increased. Thin prep Papanicolaou smear with manual screening 01-12 [facility] Upper respiratory specimen i nfluenza A virus, influenza B virus, and severe acute resOrdered By: Robert Allison on 08-13-2023 Upper respiratory specimen influenza A virus, influenza B virus, and severe acute res [facility] Urine blood detectionOrdered By: Robert Allison on 08-13-2023 RBC Ql (U) 50 /ul Negative [facility] RBC Ql (U) 0-5 SEEN /hpf 0-5 [facility] Urine clarityOrdered By: Harriet Allison on 08-13-2023 Clarity (U) Sl. Cloudy Clear [facility] Urine color determinationOrd ered By: Robert Allison on 08-13-2023 Color (U) Yellow Yellow [facility] Urine creatinine measurement (mass/volume)Ordered By: Heydi Amaya on 08-13-2023 Creatinine (U) [Mass/Vol] 37.60 mg/dL NO RANGE EST. [facility] Urine glucose detectionOrder ed By: Robert Allison on 08-13-2023 Glucose Ql (U) 1000 mg/dl Normal [facility] Urine leukocyte esterase det ection by dipstickOrdered By: Robert Allison on 08-13-2023 Leukocyte esterase Test strip Ql (U) 500 /ul Negative [facility] Urine osmolality measurement Ordered By: Heydi Amaya on 08-13-2023 Osmolality (U) [Osmolality] 269 mOsm/KG >50 [facility] Comment on above: Normal Urine Referen ce Ranges Random: 50 - 1200 mOsm/kg H20 depending on fluid intake Random: >850 mOsm/kg after 12 hour fluid restriction 24 hour: ~300 - 900 mOsm/kg H2O Urine pHOrdered By: Robert latifr on 08-13-2023 pH (U) 5.0 [pH] 5.0 - 8.0 [facility] Urine sediment bacteria coun t by microscopy (number/high power field)Ordered By: Robert Allison on 08-13-2023 Bacteria LM.HPF (Urine sed) [#/Area] 3 /[HPF] None Seen [facility] Urine specific gravity measu rementOrdered By: Robert Allison on 08-13-2023 Specific gravity (U) [Rel density] 1.015 1.002-1.030 [facility] Urobilinogen Auto test strip Ql (U)Ordered By: Robert Allison on 08-13-2023 Urobilinogen Ql (U) Normal mg/dl Normal [facility] Absolute lymphocyte countOrd ered By: Winston Gill on 07-18-2023 Lymphocytes Auto (Unsp spec) [#/Vol] 0.92 10*3/uL 0.83-4.51 [facility] Basophil percentageOrdered B y: Winston Gill on 07-18-2023 Basophil percentage >100 SEEN /hpf 0-5 [facility] Basophils/100 WBC (Bld) 0.4 % 0-1 [facility] Bilirubin [Mass/Vol] 0.40 mg/dL 0.20-1.00 [facility] Comment on above: For patients on eltr ombopag therapy, use of Dimension [place] TBIL is not recommended. Chloride [Moles/Vol] 95 mmol/L 98-107 [facility] Eosinophils/100 WBC (Bld) 0.7 % 0-5 [facility] Glucose [Mass/Vol] 139 mg/dL 74-106 [facility] Comment on above: Fasting Glucose resu lt greater than or equal to 126 mg/dL suggests DIABETES MELLITUS per A.D.A. criteria. Neutrophils (Bld) [#/Vol] 5.4 10*3/uL 2.0-7.7 [facility] Neutrophils/100 WBC (Bld) 76.5 % 47-70 [facility] Potassium [Moles/Vol] 3.7 mmol/L 3.5-5.1 [facility] Protein [Mass/Vol] 7.4 g/dL 6.4-8.2 [facility] Sodium [Moles/Vol] 131 mmol/L 136-145 [facility] WBC (Bld) [#/Vol] 7.0 10*3/uL 4.4-11.0 [facility] Bilirubin Test strip Ql (U)O rdered By: Winston Gill on 07-18-2023 Bilirubin Ql (U) Negative Negative [facility] Blood erythrocytes count (nu mber/volume)Ordered By: Winston Gill on 07-18-2023 RBC (Bld) [#/Vol] 3.85 10*6/uL 4.2-5.4 [facility] Blood hemoglobin measurement (mass/volume)Ordered By: Winston Gill on 07-18-2023 Hemoglobin (Bld) [Mass/Vol] 10.8 g/dL 12.0-15.0 [facility] Blood lymphocytes/100 leukoc ytesOrdered By: Winston Gill on 07-18-2023 Lymphocytes/100 WBC (Bld) 13.1 % 19-41 [facility] Blood monocytes/100 leukocyt esOrdered By: Winston Gill on 07-18-2023 Monocytes/100 WBC (Bld) 8.0 % 0-10 [facility] Blood platelet mean volumeOr dered By: Winston Gill on 07-18-2023 Platelet mean volume (Bld) [Entitic vol] 10.0 fL 6.2-12.0 [facility] Culture, urineOrdered By: Devyn Rea on 07-18-2023 Bacteria identified Cx Nom (U) Escherichia coli [facility] Bacteria identified Cx Nom (U) Klebsiella pneumoniae sp pneum [facility] Determination of erythrocyte mean corpuscular volume (MCV)Ordered By: Winston Gill on 07-18-2023 MCV (RBC) [Entitic vol] 87.0 fL 81-99 [facility] Hematocrit Auto (Bld) [Volum e fraction]Ordered By: Winston Gill on 07-18-2023 Hematocrit (Bld) [Volume fraction] 33.5 % 37-47 [facility] Ketones Test strip Ql (U)Ord ered By: Winston Gill on 07-18-2023 Ketones Ql (U) 50 mg/dl Negative [facility] Laboratory - Chemistry and C hemistry - challengeOrdered By: Winston Gill on 07-18-2023 ALP [Catalytic activity/Vol] 93 U/L 45-117 [facility] ALT [Catalytic activity/Vol] 13 U/L 13-56 [facility] CO2 [Moles/Vol] 27.0 mmol/L 21.0-32.0 [facility] Globulin (S) [Mass/Vol] 4.8 g/dL 2.2-4.2 [facility] Urea nitrogen/Creatinine [Mass ratio] 15.6 mg/mg 10-20 [facility] Laboratory - Hematology and Cell countsOrdered By: Winston Gill on 07-18-2023 Erythrocyte distribution width (RBC) [Entitic vol] 52.4 fL 35.1-43.9 [facility] Erythrocyte distribution width (RBC) [Ratio] 16.4 % 11.6-14.6 [facility] Immature granulocytes/100 WBC (Bld) 1.300 % 0.0-0.9 [facility] Comment on above: IG% - Immature Granu locytes (promyelocytes, myelocytes and metamyelocytes) > 1% indicates that a LEFT SHIFT is Present. MCH (RBC) [Entitic mass] 28.1 pg 27.0-32.0 [facility] Nucleated RBC/100 WBC (Bld) [Ratio] 0 % 0-5 [facility] MCHC Auto (RBC) [Mass/Vol]Or dered By: Winston Gill on 07-18-2023 MCHC (RBC) [Mass/Vol] 32.2 g/dL 32-36 [facility] Mucus LM Ql (Urine sed)Order ed By: Winston Gill on 07-18-2023 Mucus Ql (Urine sed) 0 SEEN /hpf [facility] Nitrite Test strip Ql (U)Ord ered By: Winston Gill on 07-18-2023 Nitrite Ql (U) Negative Negative [facility] No Panel InformationOrdered By: Winston Gill on 07-18-2023 Estimated Creatinine Clearance Calc 45.46 ml/min [facility] Estimated GFR (MDRD) Amer 85 mL/min >60 [facility] Comment on above: GFR Calc Estimated GFR (MDRD) Non-Af Amer 70 mL/min >60 [facility] Comment on above: Non- GFR Calc Platelets bldOrdered By: Pet richar Jairo on 07-18-2023 Platelets (Bld) [#/Vol] 370 10*3/uL 150-450 [facility] Protein Test strip Ql (U)Ord ered By: Winston Gill on 07-18-2023 Protein Ql (U) 100 mg/dl Negative [facility] Serum or plasma albumin melanie urement (mass/volume)Ordered By: Winston Gill on 07-18-2023 Albumin [Mass/Vol] 2.6 g/dL 3.2-5.0 [facility] Serum or plasma albumin/glob ulin mass ratioOrdered By: Winston Gill on 07-18-2023 Albumin/Globulin [Mass ratio] 0.5 {ratio} 0.9-2.4 [facility] Serum or plasma calcium melanie urement (mass/volume)Ordered By: Winston Gill on 07-18-2023 Calcium [Mass/Vol] 10.3 mg/dL 8.5-10.1 [facility] Serum or plasma creatinine m easurement (mass/volume)Ordered By: Winston Gill on 07-18-2023 Creatinine [Mass/Vol] 0.83 mg/dL 0.55-1.02 [facility] Comment on above: The validity of the calculated GFR & GFRAA in patients over 70 years has not been determined. Clinical correlation is essential. Serum or plasma urea nitroge n measurement (mass/volume)Ordered By: Winston Gill on 07-18-2023 Urea nitrogen [Mass/Vol] 13 mg/dL - [facility] Squamous epithelial cells de tection in urine sediment by light microscopyOrdered By: Winston Gill on 07-18-2023 Epithelial cells.squamous LM Ql (Urine sed) 5-10 SEEN /hpf 5-10 [facility] Thin prep Papanicolaou smear with manual screeningOrdered By: Winston Gill on 11-18-2023 Thin prep Papanicolaou smear with manual screening 26 U/L 15-37 [facility] Thin prep Papanicolaou smear with manual screening 9 5-15 [facility] Urine blood detectionOrdered By: Winston Gill on 07-18-2023 RBC Ql (U) 50 /ul Negative [facility] RBC Ql (U) 0-5 SEEN /hpf 0-5 [facility] Urine clarityOrdered By: Pet richar Gill on 07-18-2023 Clarity (U) Cloudy Clear [facility] Urine color determinationOrd ered By: Winston Gill on 07-18-2023 Color (U) Yellow Yellow [facility] Urine glucose detectionOrder ed By: Winston Gill on 07-18-2023 Glucose Ql (U) 1000 mg/dl Normal [facility] Urine leukocyte esterase det ection by dipstickOrdered By: Winston Gill on 07-18-2023 Leukocyte esterase Test strip Ql (U) 500 /ul Negative [facility] Urine pHOrdered By: Winston castillo on 07-18-2023 pH (U) 5.0 [pH] 5.0 - 8.0 [facility] Urine sediment bacteria coun t by microscopy (number/high power field)Ordered By: Winston Gill on 07-18-2023 Bacteria LM.HPF (Urine sed) [#/Area] 3 /[HPF] None Seen [facility] Urine sediment leukocyte lisandro t count by microscopy (number/low power field)Ordered By: Winston Gill on 07-18-2023 WBC casts LM.LPF (Urine sed) [#/Area] 0-5 SEEN /lpf None Seen [facility] Urine specific gravity measu rementOrdered By: Winston Gill on 07-18-2023 Specific gravity (U) [Rel density] 1.020 1.002-1.030 [facility] Urobilinogen Auto test strip Ql (U)Ordered By: Winston Gill on 07-18-2023 Urobilinogen Ql (U) 1 mg/dl Normal [facility] No Panel Informationon 07-15 POC SARS CoV-2 Antigen Negative [place] Amorphous sediment detection in urine sediment by light microscopyOrdered By: Cheryl Mendez on 06-01-2023 Amorphous sediment LM Ql (Urine sed) 1+ URATE [facility] Basophil percentageOrdered B y: Cheryl Mendez on 06-01-2023 Basophil percentage 5-10 SEEN /hpf 0-5 [facility] Bilirubin Test strip Ql (U)O rdered By: Cheryl Mendez on 06-01-2023 Bilirubin Ql (U) Negative Negative [facility] Ketones Test strip Ql (U)Ord ered By: Cheryl Mendez on 06-01-2023 Ketones Ql (U) Negative Negative [facility] Mucus LM Ql (Urine sed)Order ed By: Cheryl Mendez on 06-01-2023 Mucus Ql (Urine sed) 0 SEEN /hpf [facility] Nitrite Test strip Ql (U)Ord ered By: Cheryl Mendez on 06-01-2023 Nitrite Ql (U) Negative Negative [facility] No Panel InformationOrdered By: Cheryl Mendez on 06-01-2023 Urine Microalbumin/Creatinine Ratio 173.1 mg/g CRE <30 [facility] Protein Test strip Ql (U)Ord ered By: Cheryl Mendez on 06-01-2023 Protein Ql (U) 15 mg/dl Negative [facility] Squamous epithelial cells de tection in urine sediment by light microscopyOrdered By: Cheryl Mendez on 06-01-2023 Epithelial cells.squamous LM Ql (Urine sed) 0-5 SEEN /hpf 5-10 [facility] Thin prep Papanicolaou smear with manual screeningOrdered By: Cheryl Mendez on 06-01-2023 Thin prep Papanicolaou smear with manual screening 98.3 mg/L NO RANGE EST. [facility] Urine blood detectionOrdered By: Cheryl Mendez on 06-01-2023 RBC Ql (U) 25 /ul Negative [facility] RBC Ql (U) 0-5 SEEN /hpf 0-5 [facility] Urine clarityOrdered By: Dyana Mendez on 06-01-2023 Clarity (U) Cloudy Clear [facility] Urine color determinationOrd ered By: Cheryl Mendez on 06-01-2023 Color (U) Yellow Yellow [facility] Urine creatinine measurement (mass/volume)Ordered By: Cheryl Mendez on 06-01-2023 Creatinine (U) [Mass/Vol] 56.80 mg/dL NO RANGE EST. [facility] Urine glucose detectionOrder ed By: Cheryl Mendez on 06-01-2023 Glucose Ql (U) 1000 mg/dl Normal [facility] Urine leukocyte esterase det ection by dipstickOrdered By: Cheryl Mendez on 06-01-2023 Leukocyte esterase Test strip Ql (U) 100 /ul Negative [facility] Urine pHOrdered By: Nikki Mendez on 06-01-2023 pH (U) 5.0 [pH] 5.0 - 8.0 [facility] Urine sediment bacteria coun t by microscopy (number/high power field)Ordered By: Cheryl Mendez on 06-01-2023 Bacteria LM.HPF (Urine sed) [#/Area] 3 /[HPF] None Seen [facility] Urine specific gravity measu rementOrdered By: Cheryl Mendez on 06-01-2023 Specific gravity (U) [Rel density] 1.015 1.002-1.030 [facility] Urobilinogen Auto test strip Ql (U)Ordered By: Cheryl Mendez on 06-01-2023 Urobilinogen Ql (U) Normal mg/dl Normal [facility] Basophil percentageOrdered B y: Cheryl Mendez on 05-27-2023 Basophil percentage 2.7 mg/dL 2.5-4.9 [facility] Chloride [Moles/Vol] 102 mmol/L 98-107 [facility] Glucose [Mass/Vol] 220 mg/dL 74-106 [facility] Comment on above: Glucose result great er than or equal to 200 mg/dLsuggests DIABETES MELLITUS per A.D.A. criteria. Potassium [Moles/Vol] 3.9 mmol/L 3.5-5.1 [facility] Sodium [Moles/Vol] 137 mmol/L 136-145 [facility] Laboratory - Chemistry and C hemistry - challengeOrdered By: Cheryl Mendez on 05-27-2023 CO2 [Moles/Vol] 28.0 mmol/L 21.0-32.0 [facility] Urea nitrogen/Creatinine [Mass ratio] 10.0 mg/mg 10-20 [facility] No Panel InformationOrdered By: Cheryl Mendez on 05-27-2023 Estimated GFR (MDRD) Amer 89 mL/min >60 [facility] Comment on above: GFR Calc Estimated GFR (MDRD) Non-Af Amer 73 mL/min >60 [facility] Comment on above: Non- GFR Calc Parathyroid Hormone (Intact) 164.3 pg/mL 18.4-80.1 [facility] Vitamin D 25-Hydroxy 45.4 ng/mL [facility] Comment on above: Vitamin D 25(OH) Sta tus Range Deficiency <20 ng/mL (50nmol/L) Insufficiency 20 - 30 ng/mL (50 - 75 nmol/L) Sufficiency 30 - 100 ng/mL (75 - 250 nmol/L) Toxicity >100 ng/mL (>250 nmol/L) Serum or plasma albumin melanie urement (mass/volume)Ordered By: Cheryl Mendez on 05-27-2023 Albumin [Mass/Vol] 2.9 g/dL 3.2-5.0 [facility] Serum or plasma calcium melanie urement (mass/volume)Ordered By: Cheryl Mendez on 05-27-2023 Calcium [Mass/Vol] 10.7 mg/dL 8.5-10.1 [facility] Serum or plasma creatinine m easurement (mass/volume)Ordered By: Cheryl Mendez on 05-27-2023 Creatinine [Mass/Vol] 0.80 mg/dL 0.55-1.02 [facility] Comment on above: The validity of the calculated GFR & GFRAA in patients over 70 years has not been determined. Clinical correlation is essential. Serum or plasma urea nitroge n measurement (mass/volume)Ordered By: Cheryl Mendez on 05-27-2023 Urea nitrogen [Mass/Vol] 8 mg/dL 7-18 [facility] Culture, urineOrdered By: Allan Anguiano on 03-24-2023 Bacteria identified Cx Nom (U) Klebsiella pneumoniae sp pneum [facility] Bacteria identified Cx Nom (U) Klebsiella pneumoniae sp pneum [facility] Absolute lymphocyte countOrd ered By: Dr. Smiley on 01-28-2023 Lymphocytes Auto (Unsp spec) [#/Vol] 3.27 10*3/uL 0.83-4.51 [facility] Absolute lymphocyte countOrd ered By: Dr. Lockwood on 01-28-2023 Lymphocytes Auto (Unsp spec) [#/Vol] 2.27 10*3/uL 0.83-4.51 [facility] Basophil percentageOrdered B y: Dr. Smiley on 01-28-2023 Basophils/100 WBC (Bld) 0.5 % 0-1 [facility] Bilirubin [Mass/Vol] 0.30 mg/dL 0.20-1.00 [facility] Comment on above: For patients on eltr ombopag therapy, use of Dimension [place] TBIL is not recommended. Chloride [Moles/Vol] 99 mmol/L 98-107 [facility] Cholesterol [Mass/Vol] 145 mg/dL <200 [place] Comment on above: <200 mg/dL Desirable 200-240 mg/dL Borderline >240 mg/dL High Risk Eosinophils/100 WBC (Bld) 2.3 % 0-5 [facility] Glucose [Mass/Vol] 182 mg/dL 74-106 [facility] Comment on above: Fasting Glucose resu lt greater than or equal to 126 mg/dL suggests DIABETES MELLITUS per A.D.A. criteria. Neutrophils (Bld) [#/Vol] 3.9 10*3/uL 2.0-7.7 [facility] Neutrophils/100 WBC (Bld) 50.0 % 47-70 [facility] Potassium [Moles/Vol] 3.6 mmol/L 3.5-5.1 [facility] Protein [Mass/Vol] 7.9 g/dL 6.4-8.2 [facility] Sodium [Moles/Vol] 134 mmol/L 136-145 [facility] Triglyceride [Mass/Vol] 119 mg/dL <199 [facility] Comment on above: The drugs N-Acetylcy steine and Metamizole may falsely depress this assay.Serum Triglycerides Reference Interval Normal <150 mg/dL Borderline high 150 - 199 mg/dL High 200 - 499 mg/dL Very High > or = 500 mg/dL WBC (Bld) [#/Vol] 7.7 10*3/uL 4.4-11.0 [facility] Basophil percentageOrdered B y: Dr. Lockwood on 01-28-2023 Basophils/100 WBC (Bld) 0.8 % 0-1 [facility] Chloride [Moles/Vol] 102 mmol/L 98-107 [facility] Eosinophils/100 WBC (Bld) 2.6 % 0-5 [facility] Glucose [Mass/Vol] 137 mg/dL 74-106 [facility] Comment on above: Fasting Glucose resu lt greater than or equal to 126 mg/dL suggests DIABETES MELLITUS per A.D.A. criteria. Neutrophils (Bld) [#/Vol] 3.8 10*3/uL 2.0-7.7 [facility] Neutrophils/100 WBC (Bld) 56.6 % 47-70 [facility] Potassium [Moles/Vol] 3.8 mmol/L 3.5-5.1 [facility] Protein [Mass/Vol] 7.4 g/dL 6.4-8.2 [facility] Sodium [Moles/Vol] 136 mmol/L 136-145 [facility] WBC (Bld) [#/Vol] 6.6 10*3/uL 4.4-11.0 [facility] Blood erythrocytes count (nu mber/volume)Ordered By: Dr. Smiley on 01-28-2023 RBC (Bld) [#/Vol] 4.10 10*6/uL 4.2-5.4 [facility] Blood erythrocytes count (nu mber/volume)Ordered By: Dr. Lockwood on 01-28-2023 RBC (Bld) [#/Vol] 3.83 10*6/uL 4.2-5.4 [facility] Blood hemoglobin measurement (mass/volume)Ordered By: Dr. Smiely on 01-28-2023 Hemoglobin (Bld) [Mass/Vol] 11.5 g/dL 12.0-15.0 [facility] Blood hemoglobin measurement (mass/volume)Ordered By: Dr. Lockwood on 01-28-2023 Hemoglobin (Bld) [Mass/Vol] 11.1 g/dL 12.0-15.0 [facility] Blood lymphocytes/100 leukoc ytesOrdered By: Dr. Smiley on 01-28-2023 Lymphocytes/100 WBC (Bld) 42.3 % [facility] Blood lymphocytes/100 leukoc ytesOrdered By: Dr. Lockwood on 01-28-2023 Lymphocytes/100 WBC (Bld) 34.2 % [facility] Blood monocytes/100 leukocyt esOrdered By: Dr. Smiley on 01-28-2023 Monocytes/100 WBC (Bld) 4.8 % 0-10 [facility] Blood monocytes/100 leukocyt esOrdered By: Dr. Lockwood on 01-28-2023 Monocytes/100 WBC (Bld) 5.6 % 0-10 [facility] Blood platelet mean volumeOr dered By: Dr. Smiley on 01-28-2023 Platelet mean volume (Bld) [Entitic vol] 9.8 fL 6.2-12.0 [facility] Blood platelet mean volumeOr dered By: Dr. Lockwood on 01-28-2023 Platelet mean volume (Bld) [Entitic vol] 9.3 fL 6.2-12.0 [facility] Determination of erythrocyte mean corpuscular volume (MCV)Ordered By: Dr. Smiley on 01-28-2023 MCV (RBC) [Entitic vol] 90.7 fL 81-99 [facility] Determination of erythrocyte mean corpuscular volume (MCV)Ordered By: Dr. Lockwood on 01-28-2023 MCV (RBC) [Entitic vol] 87.7 fL 81-99 [facility] Hematocrit Auto (Bld) [Volum e fraction]Ordered By: Dr. Smiley on 01-28-2023 Hematocrit (Bld) [Volume fraction] 37.2 % 37-47 [facility] Hematocrit Auto (Bld) [Volum e fraction]Ordered By: Dr. Lockwood on 01-28-2023 Hematocrit (Bld) [Volume fraction] 33.6 % 37-47 [facility] Laboratory - Chemistry and C hemistry - challengeOrdered By: Dr. Smiley on 01-28-2023 ALP [Catalytic activity/Vol] 153 U/L 45-117 [facility] ALT [Catalytic activity/Vol] 20 U/L 13-56 [facility] CO2 [Moles/Vol] 25.0 mmol/L 21.0-32.0 [facility] Globulin (S) [Mass/Vol] 4.9 g/dL 2.2-4.2 [facility] Urea nitrogen/Creatinine [Mass ratio] 10.7 mg/mg 10-20 [facility] - Chemistry and C hemistry - challengeOrdered By: Dr. Lockwood on 01-28-2023 ALP [Catalytic activity/Vol] 140 U/L 45-117 [facility] CO2 [Moles/Vol] 27.0 mmol/L 21.0-32.0 [facility] Free T4 [Mass/Vol] 1.11 ng[facility] Glob[facility] (S) [Mass/Vol] 4.5 g/dL 2.2-4.2 [facility] Urea nitrogen/Creatinine [Mass ratio] 11.5 mg/mg 10-20 [facility] - Hematology and Cell countsOrdered By: Dr. Smiley on 01-28-2023 Erythrocyte distribution width (RBC) [Entitic vol] 49.7 fL 35.1-43.9 [facility] Erythrocyte distribution width (RBC) [Ratio] 14.9 % 11.6-14.6 [facility] Immature granulocytes/100 WBC (Bld) 0.100 % 0.0-0.9 [facility] Comment on above: IG% - Immature Granu locytes (promyelocytes, myelocytes and metamyelocytes) > 1% indicates that a LEFT SHIFT is Present. MCH (RBC) [Entitic mass] 28.0 pg 27.0-32.0 [facility] Nucleated RBC/100 WBC (Bld) [Ratio] 0 % 0-5 [facility] - Hematology and Cell countsOrdered By: Dr. Lockwood on 01-28-2023 Erythrocyte distribution width (RBC) [Entitic vol] 47.3 fL 35.1-43.9 [facility] Erythrocyte distribution width (RBC) [Ratio] 14.8 % 11.6-14.6 [facility] Immature granulocytes/100 WBC (Bld) 0.200 % 0.0-0.9 [facility] Comment on above: IG% - Immature Granu locytes (promyelocytes, myelocytes and metamyelocytes) > 1% indicates that a LEFT SHIFT is Present. MCH (RBC) [Entitic mass] 29.0 pg 27.0-32.0 [facility] MCHC Auto (RBC) [Mass/Vol]Or dered By: Dr. Smiley on 01-28-2023 MCHC (RBC) [Mass/Vol] 30.9 g/dL 32-36 [facility] Auto (RBC) [Mass/Vol]Or dered By: Dr. Lockwood on 01-28-2023 MCHC (RBC) [Mass/Vol] 33.0 g/dL [facility] Comment on above: Delta: 30.9 on 01/280 No Panel InformationOrdered By: Dr. Lockwood on 01-28-2023 Estimated Creatinine Clearance Calc 37.74 ml/min [facility] Estimated GFR (MDRD) Amer 91 mL/min >60 [facility] Comment on above: GFR Calc Estimated GFR (MDRD) Non-Af Amer 75 mL/min >60 [facility] Comment on above: Non- GFR Calc Free Triiodothyronine (T3) pg/dL 2.9 pg/mL 2.18-3.98 [facility] No Panel InformationOrdered By: Dr. Smiley on 01-28-2023 Estimated GFR (MDRD) Amer 84 mL/min >60 [facility] Comment on above: GFR Calc Estimated GFR (MDRD) Non-Af Amer 70 mL/min >60 [facility] Comment on above: Non- GFR Calc Parathyroid Hormone (Intact) 112.9 pg/mL 18.4-80.1 [facility] Thyroid Stimulating Hormone (TSH) 0.02 uIU/mL 0.358-3.74 [facility] Vitamin D 25-Hydroxy 66.1 ng/mL [facility] Comment on above: Vitamin D 25(OH) Sta tus Range Deficiency <20 ng/mL (50nmol/L) Insufficiency 20 - 30 ng/mL (50 - 75 nmol/L) Sufficiency 30 - 100 ng/mL (75 - 250 nmol/L) Toxicity >100 ng/mL (>250 nmol/L) Platelets bldOrdered By: Dr. Smiley on 01-28-2023 Platelets (Bld) [#/Vol] 349 10*3/uL 150-450 [facility] Platelets bldOrdered By: Dr. Lockwood on 01-28-2023 Platelets (Bld) [#/Vol] 285 10*3/uL 150-450 [facility] Serum or plasma albumin melanie urement (mass/volume)Ordered By: Dr. Smiley on 01-28-2023 Albumin [Mass/Vol] 3.0 g/dL 3.2-5.0 [facility] Serum or plasma albumin melanie urement (mass/volume)Ordered By: Dr. Lockwood on 01-28-2023 Albumin [Mass/Vol] 2.9 g/dL 3.2-5.0 [facility] Serum or plasma albumin/glob ulin mass ratioOrdered By: Dr. Smiley on 01-28-2023 Albumin/Globulin [Mass ratio] 0.6 {ratio} 0.9-2.4 [facility] Serum or plasma calcium melanie urement (mass/volume)Ordered By: Dr. Smiley on 01-28-2023 Calcium [Mass/Vol] 11.5 mg/dL 8.5-10.1 [facility] Serum or plasma calcium melanie urement (mass/volume)Ordered By: Dr. Lockwood on 01-28-2023 Calcium [Mass/Vol] 11.4 mg/dL 8.5-10.1 [facility] Serum or plasma cholesterol in HDL measurement (mass/volume)Ordered By: Dr. Smiley on 01-28-2023 Cholesterol in HDL [Mass/Vol] 46 mg/dL >40 [facility] Comment on above: The drugs N-Acetylcy steine and Metamizole may falsely depress this assay. Reference Range HDL <40 mg/dL Low HDL Cholesterol HDL >or= 60 mg/dL High HDL Cholesterol Serum or plasma cholesterol in VLDL measurement (mass/volume)Ordered By: Dr. Smiley on 01-28-2023 Cholesterol in VLDL [Mass/Vol] 24 mg/dL 5-40 [facility] Serum or plasma creatinine m easurement (mass/volume)Ordered By: Dr. Smiley on 01-28-2023 Creatinine [Mass/Vol] 0.84 mg/dL 0.55-1.02 [facility] Comment on above: The validity of the calculated GFR & GFRAA in patients over 70 years has not been determined. Clinical correlation is essential. Serum or plasma creatinine m easurement (mass/volume)Ordered By: Dr. Lockwood on 01-28-2023 Creatinine [Mass/Vol] 0.78 mg/dL 0.55-1.02 [facility] Comment on above: The validity of the calculated GFR & GFRAA in patients over 70 years has not been determined. Clinical correlation is essential. Serum or plasma low density lipoprotein (LDL) cholesterol measurement (mass/volume)Ordered By: Dr. Smiley on 01-28-2023 Cholesterol in LDL [Mass/Vol] 75 mg/dL 0-130 [facility] Serum or plasma urea nitroge n measurement (mass/volume)Ordered By: Dr. Smiley on 01-28-2023 Urea nitrogen [Mass/Vol] 9 mg/dL 7-18 [facility] Thin prep Papanicolaou smear with manual screeningOrdered By: Dr. Smiley on 01-28-2023 Thin prep Papanicolaou smear with manual screening 22 U/L 15- [facility] Thin prep Papanicolaou smear with manual screening 10 01-12 [facility] Thin prep Papanicolaou smear with manual screeningOrdered By: Dr. Lockwood on 01-28-2023 Thin prep Papanicolaou smear with manual screening 18 U/L [facility] Thin prep Papanicolaou smear with manual screening 7 - [facility] Whole blood hemoglobin A1c/t otal hemoglobin ratio (mass fraction)Ordered By: Dr. Smiley on 01-28-2023 HbA1c (Bld) [Mass fraction] 7.5 % 3.8-5.6 [facility] Comment on above: Normal < 5.7 % Predi abetic 5.7 - 6.4 % Diabetic >or= 6.5 % Please note range changes. Basophil percentageOrdered B y: Dr. Smiley on 12-09-2022 Bilirubin [Mass/Vol] 0.20 mg/dL 0.20-1.00 [facility] Comment on above: For patients on eltr ombopag therapy, use of Dimension [place] TBIL is not recommended. Chloride [Moles/Vol] 101 mmol/L 98-107 [facility] Glucose [Mass/Vol] 168 mg/dL 74-106 [facility] Comment on above: Fasting Glucose resu lt greater than or equal to 126 mg/dL suggests DIABETES MELLITUS per A.D.A. criteria. Potassium [Moles/Vol] 3.7 mmol/L 3.5-5.1 [facility] Protein [Mass/Vol] 8.7 g/dL 6.4-8.2 [facility] Sodium [Moles/Vol] 133 mmol/L 136-145 [facility] Laboratory - Chemistry and C hemistry - challengeOrdered By: Dr. Smiley on 12-09-2022 ALP [Catalytic activity/Vol] 164 U/L 45-117 [facility] ALT [Catalytic activity/Vol] 27 U/L 13-56 [facility] CO2 [Moles/Vol] 25.0 mmol/L 21.0-32.0 [facility] Globulin (S) [Mass/Vol] 5.4 g/dL 2.2-4.2 [facility] Urea nitrogen/Creatinine [Mass ratio] 10.7 mg/mg 10-20 [facility] No Panel InformationOrdered By: Dr. Smiley on 12-09-2022 Estimated GFR (MDRD) Amer 67 mL/min >60 [facility] Comment on above: GFR Calc Estimated GFR (MDRD) Non-Af Amer 55 mL/min >60 [facility] Comment on above: Non- GFR Calc Parathyroid Hormone (Intact) 175.0 pg/mL 18.4-80.1 [facility] Vitamin D 25-Hydroxy 92.6 ng/mL [facility] Comment on above: Vitamin D 25(OH) Sta tus Range Deficiency <20 ng/mL (50nmol/L) Insufficiency 20 - 30 ng/mL (50 - 75 nmol/L) Sufficiency 30 - 100 ng/mL (75 - 250 nmol/L) Toxicity >100 ng/mL (>250 nmol/L) Serum or plasma albumin melanie urement (mass/volume)Ordered By: Dr. Smiley on 12-09-2022 Albumin [Mass/Vol] 3.3 g/dL 3.2-5.0 [facility] Serum or plasma albumin/glob ulin mass ratioOrdered By: Dr. Smiley on 12-09-2022 Albumin/Globulin [Mass ratio] 0.6 {ratio} 0.9-2.4 [facility] Serum or plasma calcium melanie urement (mass/volume)Ordered By: Dr. Smiley on 12-09-2022 Calcium [Mass/Vol] 11.4 mg/dL 8.5-10.1 [facility] Serum or plasma creatinine m easurement (mass/volume)Ordered By: Dr. Smiley on 12-09-2022 Creatinine [Mass/Vol] 1.03 mg/dL 0.55-1.02 [facility] Comment on above: The validity of the calculated GFR & GFRAA in patients over 70 years has not been determined. Clinical correlation is essential. Serum or plasma urea nitroge n measurement (mass/volume)Ordered By: Dr. Smiley on 12-09-2022 Urea nitrogen [Mass/Vol] 11 mg/dL 7-18 [facility] Thin prep Papanicolaou smear with manual screeningOrdered By: Dr. Smiley on 12-09-2022 Thin prep Papanicolaou smear with manual screening 20 U/L 15-37 [facility] Thin prep Papanicolaou smear with manual screening 7 5-15 [facility] Whole blood hemoglobin A1c/t otal hemoglobin ratio (mass fraction)Ordered By: Dr. Smiley on 12-09-2022 HbA1c (Bld) [Mass fraction] 7.4 % 3.8-5.6 [facility] Comment on above: Normal < 5.7 % Predi abetic 5.7 - 6.4 % Diabetic >or= 6.5 % Please note range changes. Absolute lymphocyte counton 07-14-2022 Lymphocytes Auto (Unsp spec) [#/Vol] 2.79 10*3/uL 0.83-4.51 [facility] Work Phone: Basophil percentageon 2021 Basophil percentage 25-50 SEEN /hpf 0-5 [facility] Work Phone: Basophils/100 WBC (Bld) 0.5 % 0-1 [facility] Work Phone: Bilirubin [Mass/Vol] 0.30 mg/dL 0.20-1.00 [facility] Work Phone: Comment on above: For patients on eltr ombopag therapy, use of [facility] [place] TBIL is not recommended. Chloride [Moles/Vol] 102 mmol/L 98-107 [facility] Work Phone: Eosinophils/100 WBC (Bld) 3.2 % 0-5 [facility] Work Phone: Glucose [Mass/Vol] 143 mg/dL 74-106 [facility] Work Phone: Comment on above: Fasting Glucose resu lt greater than or equal to 126 mg/dL suggests DIABETES MELLITUS per A.D.A. criteria. Neutrophils (Bld) [#/Vol] 4.5 10*3/uL 2.0-7.7 [facility] Work Phone: Neutrophils/100 WBC (Bld) 54.7 % 47-70 [facility] Work Phone: Potassium [Moles/Vol] 4.9 mmol/L 3.5-5.1 [facility] Work Phone: Comment on above: Moderate Hemolysis, Result may be falsely increased. Protein [Mass/Vol] 8.3 g/dL 6.4-8.2 [facility] Work Phone: Sodium [Moles/Vol] 136 mmol/L 136-145 [facility] Work Phone: WBC (Bld) [#/Vol] 8.1 10*3/uL 4.4-11.0 [facility] Work Phone: Bilirubin Test strip Ql (U)o n 07-14-2022 Bilirubin Ql (U) Negative Negative [facility] Work Phone: Blood erythrocytes count (nu mber/volume)on 07-14-2022 RBC (Bld) [#/Vol] 4.15 10*6/uL 4.2-5.4 [facility] Work Phone: Blood hemoglobin measurement (mass/volume)on 07-14-2022 Hemoglobin (Bld) [Mass/Vol] 12.0 g/dL 12.0-15.0 [facility] Work Phone: Blood lymphocytes/100 leukoc yteson 07-14-2022 Lymphocytes/100 WBC (Bld) 34.4 % 19-41 [facility] Work Phone: Blood monocytes/100 leukocyt eson 07-14-2022 Monocytes/100 WBC (Bld) 6.8 % 0-10 [facility] Work Phone: Blood platelet mean volumeon 07-14-2022 Platelet mean volume (Bld) [Entitic vol] 10.2 fL 6.2-12.0 [facility] Work Phone: Determination of erythrocyte mean corpuscular volume (MCV)on 07-14-2022 MCV (RBC) [Entitic vol] 90.8 fL 81-99 [facility] Work Phone: Hematocrit Auto (Bld) [Volum e fraction]on 07-14-2022 Hematocrit (Bld) [Volume fraction] 37.7 % 37-47 [facility] Work Phone: Ketones Test strip Ql (U)on 07-14-2022 Ketones Ql (U) Negative Negative [facility] Work Phone: Laboratory - Chemistry and C hemistry - challengeon 07-14-2022 ALP [Catalytic activity/Vol] 131 U/L 45-117 [facility] Work Phone: ALT [Catalytic activity/Vol] 33 U/L 13-56 [facility] Work Phone: CO2 [Moles/Vol] 31.0 mmol/L 21.0-32.0 [facility] Work Phone: Globulin (S) [Mass/Vol] 5.0 g/dL 2.2-4.2 [facility] Work Phone: Urea nitrogen/Creatinine [Mass ratio] 14.7 mg/mg 10-20 [facility] Work Phone: Laboratory - Hematology and Cell countson 07-14-2022 Erythrocyte distribution width (RBC) [Entitic vol] 49.9 fL 35.1-43.9 [facility] Work Phone: Erythrocyte distribution width (RBC) [Ratio] 15.1 % 11.6-14.6 [facility] Work Phone: Immature granulocytes/100 WBC (Bld) 0.400 % 0.0-0.9 [facility] Work Phone: Comment on above: IG% - Immature Granu locytes (promyelocytes, myelocytes and metamyelocytes) > 1% indicates that a LEFT SHIFT is Present. MCH (RBC) [Entitic mass] 28.9 pg 27.0-32.0 [facility] Work Phone: Nucleated RBC/100 WBC (Bld) [Ratio] 0 % 0-5 [facility] Work Phone: MCHC Auto (RBC) [Mass/Vol]on 07-14-2022 MCHC (RBC) [Mass/Vol] 31.8 g/dL 32-36 [facility] Work Phone: Mucus LM Ql (Urine sed)on Mucus Ql (Urine sed) 0 SEEN /hpf [facility] Work Phone: Nitrite Test strip Ql (U)on 07-14-2022 Nitrite Ql (U) Negative Negative [facility] Work Phone: No Panel Informationon 07-14 Estimated Creatinine Clearance Calc 40.37 ml/min [facility] Work Phone: Estimated GFR (MDRD) Amer 73 mL/min >60 [facility] Work Phone: Comment on above: GFR Calc Estimated GFR (MDRD) Non-Af Amer 60 mL/min >60 [facility] Work Phone: Comment on above: Non- GFR Calc Platelets bldon 07-14-2022 Platelets (Bld) [#/Vol] 267 10*3/uL 150-450 [facility] Work Phone: Protein Test strip Ql (U)on 07-14-2022 Protein Ql (U) 30 mg/dl Negative [facility] Work Phone: Serum or plasma albumin melanie urement (mass/volume)on 07-14-2022 Albumin [Mass/Vol] 3.3 g/dL 3.2-5.0 [facility] Work Phone: Serum or plasma albumin/glob ulin mass ratioon 07-14-2022 Albumin/Globulin [Mass ratio] 0.7 {ratio} 0.9-2.4 [facility] Work Phone: Serum or plasma calcium melanie urement (mass/volume)on 07-14-2022 Calcium [Mass/Vol] 11.4 mg/dL 8.5-10.1 [facility] Work Phone: Serum or plasma creatinine m easurement (mass/volume)on 07-14-2022 Creatinine [Mass/Vol] 0.95 mg/dL 0.55-1.02 [facility] Work Phone: Comment on above: The validity of the calculated GFR & GFRAA in patients over 70 years has not been determined. Clinical correlation is essential. Serum or plasma urea nitroge n measurement (mass/volume)on 07-14-2022 Urea nitrogen [Mass/Vol] 14 mg/dL 7-18 [facility] Work Phone: Squamous epithelial cells de tection in urine sediment by light microscopyon 07-14-2022 Epithelial cells.squamous LM Ql (Urine sed) 0-5 SEEN /hpf 5-10 [facility] Work Phone: Thin prep Papanicolaou smear with manual screeningon 07-14-2022 Thin prep Papanicolaou smear with manual screening 44 U/L 15-37 [facility] Work Phone: Comment on above: Moderate Hemolysis, Result may be falsely increased. Thin prep Papanicolaou smear with manual screening 3 5-15 [facility] Work Phone: Urine blood detectionon 07-01 RBC Ql (U) 25 /ul Negative [facility] Work Phone: RBC Ql (U) 0 SEEN /hpf 0-5 [facility] Work Phone: Urine clarityon 07-14-2022 Clarity (U) Sl. Cloudy Clear [facility] Work Phone: Urine color determinationon 07-14-2022 Color (U) Yellow Yellow [facility] Work Phone: Urine glucose detectionon Glucose Ql (U) 1000 mg/dl Normal [facility] Work Phone: Urine leukocyte esterase det ection by dipstickon 07-14-2022 Leukocyte esterase Test strip Ql (U) 500 /ul Negative [facility] Work Phone: Urine pHon 07-14-2022 pH (U) 6.0 [pH] 5.0 - 8.0 [facility] Work Phone: Urine sediment bacteria coun t by microscopy (number/high power field)on 07-14-2022 Bacteria LM.HPF (Urine sed) [#/Area] 3 /[HPF] None Seen [facility] Work Phone: Urine specific gravity measu rementon 07-14-2022 Specific gravity (U) [Rel density] 1.015 1.002-1.030 [facility] Work Phone: Urobilinogen Auto test strip Ql (U)on 07-14-2022 Urobilinogen Ql (U) Normal mg/dl Normal [facility] Work Phone: CBC W Auto Differential pane l (Bld)on 05-07-2022 Basophils (Bld) [#/Vol] 0.05 10*3/uL Normal <0.11 [facility] Comment on above: Order Comment: Speci men Type: BLOOD SPECIMEN Ordering Facility: [facility] Address: [address] [address] Performed By: #### 5 7021-8 #### [facility] CLIA [id number] [address] [place] [address] [place] [facility] Basophils/100 WBC (Bld) 0.7 % Normal [facility] Comment on above: Order Comment: Speci men Type: BLOOD SPECIMEN Ordering Facility: [facility] Address: [facility] [id number] Performed By: #### 5 7021-8 #### [facility] CLIA [id number] [address] [place] [address] [place] Differential cell count method Nom (Bld) Auto Normal [facility] Comment on above: Order Comment: Speci men Type: BLOOD SPECIMEN Ordering Facility: [facility] Address: [address] [place] [address] Performed By: #### 5 7021-8 #### [facility] CLIA [id number] [address] [place] [address] [place] Eosinophils (Bld) [#/Vol] 0.32 10*3/uL Normal <0.46 [facility] Comment on above: Order Comment: Speci men Type: BLOOD SPECIMEN Ordering Facility: [facility] Address: [address] [place] [address] Performed By: #### 5 7021-8 #### [facility] CLIA [id number] [address] [place] [address] [place] Eosinophils/100 WBC (Bld) 4.7 % Normal [facility] Comment on above: Order Comment: Speci men Type: BLOOD SPECIMEN Ordering Facility: [facility] Address: [address] [place] [address] Performed By: #### 5 7021-8 #### [facility] CLIA [id number] [address] [place] [address] [place] Erythrocyte distribution width (RBC) [Ratio] 14.6 % Normal 11.5-15.0 [facility] Comment on above: Order Comment: Speci men Type: BLOOD SPECIMEN Ordering Facility: [facility] Address: [address] [place] [address] Performed By: #### 5 7021-8 #### [facility] CLIA [id number] [address] [place] [address] [place] Hematocrit (Bld) [Volume fraction] 37.2 % Normal 36.0-46.0 [facility] Comment on above: Order Comment: Speci men Type: BLOOD SPECIMEN Ordering Facility: [facility] Address: [address] [place] [address] Performed By: #### 5 7021-8 #### [facility] CLIA [id number] [address] [place] [address] [place] Hemoglobin (Bld) [Mass/Vol] 12.0 g/dL Normal 11.5-15.5 [facility] Comment on above: Order Comment: Speci men Type: BLOOD SPECIMEN Ordering Facility: [facility] Address: [address] [place] [address] Performed By: #### 5 7021-8 #### [facility] CLIA [id number] [address] [place] [address] [place] IMMATURE GRAN % 0.1 % Normal [facility] Comment on above: Order Comment: Speci men Type: BLOOD SPECIMEN Ordering Facility: [facility] Address: [address] [place] [address] Performed By: #### 5 7021-8 #### [id number] [address] [place] [address] [place] IMMATURE GRAN ABS <0.03 Normal <0.10 [facility] Comment on above: Order Comment: Speci men Type: BLOOD SPECIMEN Ordering Facility: [facility] Address: [address] [place] [address] Performed By: #### 5 7021-8 #### [facility] CLIA [id number] [address] [place] [address] [place] Lymphocytes (Bld) [#/Vol] 2.03 10*3/uL Normal 1.00-4.00 [facility] Comment on above: Order Comment: Speci men Type: BLOOD SPECIMEN Ordering Facility: [facility] Address: [address] [place] [address] Performed By: #### 5 7021-8 #### [facility] CLIA [id number] [address] [place] [address] [place] Lymphocytes/100 WBC (Bld) 29.7 % Normal [facility] Comment on above: Order Comment: Speci men Type: BLOOD SPECIMEN Ordering Facility: [facility] Address: [address] [place] [address] Performed By: #### 5 7021-8 #### [facility] CLIA [id number] [address] [place] [address] [place] MCH (RBC) [Entitic mass] 28.5 pg Normal 26.0-34.0 [facility] Comment on above: Order Comment: Speci men Type: BLOOD SPECIMEN Ordering Facility: [facility] Address: [address] [place] [address] Performed By: #### 5 7021-8 #### [facility] CLIA [id number] [address] [place] [address] [place] MCHC (RBC) [Mass/Vol] 32.3 g/dL Normal 30.5-36.0 [facility] Comment on above: Order Comment: Speci men Type: BLOOD SPECIMEN Ordering Facility: [facility] Address: [address] [place] [address] Performed By: #### 5 7021-8 #### [facility] CLIA [id number] [address] [place] [address] [place] MCV (RBC) [Entitic vol] 88.4 fL Normal 80.0-100.0 [facility] Comment on above: Order Comment: Speci men Type: BLOOD SPECIMEN Ordering Facility: [facility] Address: [address] [place] [address] Performed By: #### 5 7021-8 #### [facility] CLIA [id number] [address] [place] [address] [place] Monocytes (Bld) [#/Vol] 0.47 10*3/uL Normal <0.87 [facility] Comment on above: Order Comment: Speci men Type: BLOOD SPECIMEN Ordering Facility: [facility] Address: [address] [place], [place] [id number] Performed By: #### 5 7021-8 #### [facility] CLIA [id number] [address] [place] [address] [place] Monocytes/100 WBC (Bld) 6.9 % Normal [facility] Comment on above: Order Comment: Speci men Type: BLOOD SPECIMEN Ordering Facility: [facility] Address: [address] [place], [place] [address] Performed By: #### 5 7021-8 #### [facility] CLIA [id number] [address] [place] [address] [place] Neutrophils (Bld) [#/Vol] 3.96 10*3/uL Normal 1.45-7.50 [facility] Comment on above: Order Comment: Speci men Type: BLOOD SPECIMEN Ordering Facility: [facility] Address: [address] [place], [place] [id number] Performed By: #### 5 7021-8 #### [facility] CLIA [id number] [address] [place] [address] [place] Neutrophils/100 WBC (Bld) 57.9 % Normal [facility] Comment on above: Order Comment: Speci men Type: BLOOD SPECIMEN Ordering Facility: [facility] Address: [address] Performed By: #### 5 7021-8 #### [facility] CLIA [id number] [address] [place] [address] [place] Nucleated RBC (Bld) [#/Vol] 10*3/uL Normal <0.01 [facility] Comment on above: Order Comment: Speci men Type: BLOOD SPECIMEN Ordering Facility: [facility] Address: [address] [place], [place] [id number] Performed By: #### 5 7021-8 #### [facility] CLIA [id number] [address] [place] [address] [place] Nucleated RBC/100 WBC (Bld) [Ratio] 0.0 /100 WBC Normal [facility] Comment on above: Order Comment: Speci men Type: BLOOD SPECIMEN Ordering Facility: [facility] Address: [address] [place], [place] [address] Performed By: #### 5 7021-8 #### [facility] CLIA [id number] [address] [place] [address] [place] Platelet mean volume (Bld) [Entitic vol] 10.0 fL Normal 9.0-12.7 [facility] Comment on above: Order Comment: Speci men Type: BLOOD SPECIMEN Ordering Facility: [facility] Address: [address] [place], [place] [address] Performed By: #### 5 7021-8 #### [facility] CLIA [id number] [address] [place] [address] [place] Platelets (Bld) [#/Vol] 246 10*3/uL Normal 150-400 [facility] Comment on above: Order Comment: Speci men Type: BLOOD SPECIMEN Ordering Facility: [facility] Address: [address] [place], [place] [address] Performed By: #### 5 7021-8 #### [facility] CLIA [id number] [address] [place] [address] [place] RBC (Bld) [#/Vol] 4.21 10*6/uL Normal 3.90-5.20 [facility] Comment on above: Order Comment: Speci men Type: BLOOD SPECIMEN Ordering Facility: [facility] Address: [address] [place], [place] [address] Performed By: #### 5 7021-8 #### [facility] CLIA [id number] [address] [place] [address] [place] WBC (Bld) [#/Vol] 6.84 10*3/uL Normal 3.70-11.00 [facility] Comment on above: Order Comment: Speci men Type: BLOOD SPECIMEN Ordering Facility: [facility] Address: [facility] [address] Performed By: #### 5 7021-8 #### [facility] CLIA [id number] [address] [id number] [place] CNOVSPon 05-07-2022 CNOVSP Visit (SP) Office (EVELYN) OLGA DONALDSON ([id number]) 1945 F Date Time Provider Department 05/07/22 [...] an every 2-week basis for 4 cycles ([id number]). Completed a year of trastuzumab 10/17/06. Referred back or anemia. Admitted to [facility] 12/02/2019 for chest pain with ambulation. Initial [...] 1.00 - 4.00 k/uL 2.70 2.30 2.03 [place]% % 7.0 6.6 6.9 Abs [place] <0.87 k/uL 0.49 0.47 0.47 Eosin% % 4.9 3.2 4.7 Abs Eosin <0.46 k/uL 0.34 0.23 0.32 Baso% % 0.7 0.6 0.7 Abs Baso <0.11 k/uL 0.05 0.04 0.05 Immature (more content not included)... Normal [facility] Ferritin SerPl-mCncon 2021 Ferritin [Mass/Vol] 808.0 ng/mL High 14.7-205.1 [facility] Comment on above: Order Comment: Speci men Type: BLOOD SPECIMEN Ordering Facility: [facility] Address: [address] [place] [address] Performed By: #### 5 0190-8, 2276-4 #### [facility] CLIA [id number] [address] [place] [address] [place] Iron and Iron binding capaci ty panelon 05-07-2022 Iron [Mass/Vol] 38 ug/dL Low 41-186 [facility] Comment on above: Order Comment: Speci men Type: BLOOD SPECIMEN Ordering Facility: [facility] Address: [address] [place] [address] Performed By: #### 5 0190-8, 6-4 #### [facility] CLIA [id number] [address] [place] [address] [place] Iron binding capacity [Mass/Vol] 240 ug/dL Normal 232-386 [facility] Comment on above: Order Comment: Speci men Type: BLOOD SPECIMEN Ordering Facility: [facility] Address: [address] [place] [address] Performed By: #### 5 0190-8, 6-4 #### [facility] CLIA [id number] [address] [place] [address] [place] Iron/TIBC [Molar ratio] 15.8 % Normal 15.0-57.0 [facility] Comment on above: Order Comment: Speci men Type: BLOOD SPECIMEN Ordering Facility: [facility] Address: [address] [place], [place] [id number] Performed By: #### 5 0190-8, 2276-4 #### [facility] CLIA [id number] [address] [place] [address] OF [facility] Justine 02-10-2022 [place] Telephone (EVELYN) OLGA DONALDSON ([id number]) 1945 F Date Time Provider Department 02/10/22 [...] Date Reviewed: 05/07/2021 Reviewed by: 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 APRN.REGISTRY NURSE - Fully Assessed Reason for Visit: Results [...] MIST) 0.65 % nasal spray Use 1 [place] in the nose as needed. - diltiazem [...] by STACIE VARNER LPN on 02/10/22 Normal [facility] CBC W Auto Differential pane l (Bld)on 02-03-2022 Basophils (Bld) [#/Vol] 0.04 10*3/uL Normal <0.11 [facility] Comment on above: Order Comment: Speci men Type: BLOOD SPECIMEN Ordering Facility: [facility] Address: [address] [place] [address] Performed By: #### 5 7021-8 #### [facility] CLIA [id number] [address] [place] [address] [place] Basophils/100 WBC (Bld) 0.6 % Normal [facility] Comment on above: Order Comment: Speci men Type: BLOOD SPECIMEN Ordering Facility: [facility] Address: [address] [place] [address] Performed By: #### 5 7021-8 #### [facility] CLIA [id number] [address] [place] [address] [place] Differential cell count method Nom (Bld) Auto Normal [facility] Comment on above: Order Comment: Speci men Type: BLOOD SPECIMEN Ordering Facility: [facility] Address: [address] [address] Performed By: #### 5 7021-8 #### [facility] CLIA [id number] [address] [place] [address] [place] Eosinophils (Bld) [#/Vol] 0.23 10*3/uL Normal <0.46 [facility] Comment on above: Order Comment: Speci men Type: BLOOD SPECIMEN Ordering Facility: [facility] Address: [address] [address] Performed By: #### 5 7021-8 #### [facility] CLIA [id number] [address] [place] [address] [place] Eosinophils/100 WBC (Bld) 3.2 % Normal [facility] Comment on above: Order Comment: Speci men Type: BLOOD SPECIMEN Ordering Facility: [facility] Address: [address] [place] [address] Performed By: #### 5 7021-8 #### [facility] CLIA [id number] [address] [place] [address] [place] Erythrocyte distribution width (RBC) [Ratio] 14.3 % Normal 11.5-15.0 [facility] Comment on above: Order Comment: Speci men Type: BLOOD SPECIMEN Ordering Facility: [facility] Address: [address] [place] [address] Performed By: #### 5 7021-8 #### [facility] CLIA [id number] [address] [place] [address] [place] Hematocrit (Bld) [Volume fraction] 39.7 % Normal 36.0-46.0 [facility] Comment on above: Order Comment: Speci men Type: BLOOD SPECIMEN Ordering Facility: [facility] Address: [address] [place] [address] Performed By: #### 5 7021-8 #### [facility] CLIA [id number] [address] [place] [address] [place] Hemoglobin (Bld) [Mass/Vol] 12.8 g/dL Normal 11.5-15.5 [facility] Comment on above: Order Comment: Speci men Type: BLOOD SPECIMEN Ordering Facility: [facility] Address: [address] [place], [place] [address] Performed By: #### 5 7021-8 #### [facility] CLIA [id number] [address] [place] [address] [place] IMMATURE GRAN % 0.3 % Normal [facility] Comment on above: Order Comment: Speci men Type: BLOOD SPECIMEN Ordering Facility: [facility] Address: [address] [place] [address] Performed By: #### 5 7021-8 #### [facility] CLIA [id number] [address] [place] [address] [place] IMMATURE GRAN ABS <0.03 Normal <0.10 [facility] Comment on above: Order Comment: Speci men Type: BLOOD SPECIMEN Ordering Facility: [facility] Address: [address] [place] [address] Performed By: #### 5 7021-8 #### [facility] CLIA [id number] [address] [place] [address] [place] Lymphocytes (Bld) [#/Vol] 2.30 10*3/uL Normal 1.00-4.00 [facility] Comment on above: Order Comment: Speci men Type: BLOOD SPECIMEN Ordering Facility: [facility] Address: [address] [place] [address] Performed By: #### 5 7021-8 #### [facility] CLIA [id number] [address] [place] [address] [place] Lymphocytes/100 WBC (Bld) 32.1 % Normal [facility] Comment on above: Order Comment: Speci men Type: BLOOD SPECIMEN Ordering Facility: [facility] Address: [address] [place] [address] Performed By: #### 5 7021-8 #### [facility] CLIA [id number] [address] [place] [address] [place] MCH (RBC) [Entitic mass] 28.8 pg Normal 26.0-34.0 [facility] Comment on above: Order Comment: Speci men Type: BLOOD SPECIMEN Ordering Facility: [facility] Address: [address] [place], [place] [address] Performed By: #### 5 7021-8 #### [facility] CLIA [id number] [address] [place] [address] MCHC (RBC) [Mass/Vol] 32.2 g/dL Normal 30.5-36.0 [facility] Comment on above: Order Comment: Speci men Type: BLOOD SPECIMEN Ordering Facility: [facility] Address: [address] [place] [address] Performed By: #### 5 7021-8 #### [facility] [id number] [address] [place] [address] [place] MCV (RBC) [Entitic vol] 89.4 fL Normal 80.0-100.0 C [facility] Comment on above: Order Comment: Speci men Type: BLOOD SPECIMEN Ordering Facility: [facility] Address: [address] [place] [address] Performed By: #### 5 7021-8 #### [facility] [id number] [address] [place] [address] [place] Monocytes (Bld) [#/Vol] 0.47 10*3/uL Normal <0.87 [facility] Comment on above: Order Comment: Speci men Type: BLOOD SPECIMEN Ordering Facility: [facility] Address: [address] [place], [place] [address] Performed By: #### 5 7021-8 #### [facility] CLIA [id number] [address] [place] [address] [place] Monocytes/100 WBC (Bld) 6.6 % Normal C [facility] Comment on above: Order Comment: Speci men Type: BLOOD SPECIMEN Ordering Facility: [facility] Address: [address] [place], [place] [address] Performed By: #### 5 7021-8 #### [facility] CLIA [id number] [address] [place] [address] [place] Neutrophils (Bld) [#/Vol] 4.11 10*3/uL Normal 1.45-7.50 [facility] Comment on above: Order Comment: Speci men Type: BLOOD SPECIMEN Ordering Facility: [facility] Address: [address] [place] [address] Performed By: #### 5 7021-8 #### [facility] CLIA [id number] [address] [place] [address] [place] Neutrophils/100 WBC (Bld) 57.2 % Normal [facility] Comment on above: Order Comment: Speci men Type: BLOOD SPECIMEN Ordering Facility: [facility] Address: [address] [place] [address] Performed By: #### 5 7021-8 #### [facility] CLIA [id number] [address] [place] [address] [place] Nucleated RBC (Bld) [#/Vol] 10*3/uL Normal <0.01 [facility] Comment on above: Order Comment: Speci men Type: BLOOD SPECIMEN Ordering Facility: [facility] Address: [address] [place] [address] Performed By: #### 5 7021-8 #### [facility] CLIA [id number] [address] [place] [address] [place] Nucleated RBC/100 WBC (Bld) [Ratio] 0.0 /100 WBC Normal [facility] Comment on above: Order Comment: Speci men Type: BLOOD SPECIMEN Ordering Facility: [facility] Address: [address] [place] [address] Performed By: #### 5 7021-8 #### [facility] CLIA [id number] [address] [place] [address] [place] Platelet mean volume (Bld) [Entitic vol] 10.3 fL Normal 9.0-12.7 [facility] Comment on above: Order Comment: Speci men Type: BLOOD SPECIMEN Ordering Facility: [facility] Address: [address] [place] [address] Performed By: #### 5 7021-8 #### [facility] CLIA [id number] [address] [place] [address] [place] Platelets (Bld) [#/Vol] 265 10*3/uL Normal 150-400 [facility] Comment on above: Order Comment: Speci men Type: BLOOD SPECIMEN Ordering Facility: [facility] Address: [address] [place] [address] Performed By: #### 5 7021-8 #### [facility] CLIA [id number] [address] [place] [address] [place] RBC (Bld) [#/Vol] 4.44 10*6/uL Normal 3.90-5.20 [facility] Comment on above: Order Comment: Speci men Type: BLOOD SPECIMEN Ordering Facility: [facility] Address: [address] [place] [address] Performed By: #### 5 7021-8 #### [facility] CLIA [id number] [address] [place] [address] [place] WBC (Bld) [#/Vol] 7.17 10*3/uL Normal 3.70-11.00 [facility] Comment on above: Order Comment: Speci men Type: BLOOD SPECIMEN Ordering Facility: [facility] Address: [address] [place], [place] [address] Performed By: #### 5 7021-8 #### [facility] CLIA [id number] [address] [place] [address] [place] FERRITIN BLDon 02-03-2022 Ferritin [Mass/Vol] 1132.0 ng/mL High 14.7-205.1 [facility] Comment on above: Order Comment: Speci men Type: BLOOD SPECIMEN Ordering Facility: [facility] Address: [address] [place] [address] Performed By: #### F ERR, IRON #### [facility] CLIA [id number] [address] [place] [address] [place] IRON + TIBCon 02-03-2022 Iron [Mass/Vol] 66 ug/dL Normal 41-186 [facility] Comment on above: Order Comment: Speci men Type: BLOOD SPECIMEN Ordering Facility: [facility] Address: [address] [place] [address] Performed By: #### F ERR, IRON #### [facility] CLIA [id number] [address] [place] [address] [place] Iron binding capacity [Mass/Vol] 286 ug/dL Normal 232-386 [facility] Comment on above: Order Comment: Speci men Type: BLOOD SPECIMEN Ordering Facility: [facility] Address: [address] [place] [address] Performed By: #### F ERR, IRON #### [facility] CLIA [id number] [address] [place] [address] [place] Iron/TIBC [Molar ratio] 23 % Normal 15-57 C [facility] Comment on above: Order Comment: Speci men Type: BLOOD SPECIMEN Ordering Facility: [facility] Address: [address] [place] [address] Performed By: #### F ERR, IRON #### [facility] CLIA [id number] [address] [place] [address] [place] Bacteria identified Anaer cx Nom (Unsp spec)on 12-02-2021 Anaerobic microbial culture No anaerobic bacteria isolated. [facility] Work Phone: Bacteria identified Cx Nom ( Wound)on 12-02-2021 Wound Culture Negative [facility] Work Phone: Wound Culture Staphylococcus epidermidis [facility] Work Phone: Wound Culture Corynebacterium striatum [facility] Work Phone: Gram stain for investigation of transfusion reactionon 12-02-2021 Microscopic observation Gram stain Nom (Unsp spec) [facility] Work Phone: CBC W Auto Differential pane l (Bld)on 11-04-2021 Basophils (Bld) [#/Vol] 0.05 10*3/uL Normal <0.11 [facility] Comment on above: Order Comment: Speci men Type: BLOOD SPECIMEN Ordering Facility: [facility] Address: [address] [place] [address] Performed By: #### 5 7021-8 #### [facility] CLIA [id number] [address] [place] [address] [place] Basophils/100 WBC (Bld) 0.7 % Normal C [facility] Comment on above: Order Comment: Speci men Type: BLOOD SPECIMEN Ordering Facility: [facility] Address: [address] [place] [address] Performed By: #### 5 7021-8 #### [facility] CLIA [id number] [address] [place] [address] [place] Differential cell count method Nom (Bld) Auto Normal [facility] Comment on above: Order Comment: Speci men Type: BLOOD SPECIMEN Ordering Facility: [facility] Address: [address] [address] Performed By: #### 5 7021-8 #### [facility] CLIA [id number] [address] [place] [address] [place] Eosinophils (Bld) [#/Vol] 0.34 10*3/uL Normal <0.46 [facility] Comment on above: Order Comment: Speci men Type: BLOOD SPECIMEN Ordering Facility: [facility] Address: [address] [address] Performed By: #### 5 7021-8 #### [facility] CLIA [id number] [address] [place] [address] [place] Eosinophils/100 WBC (Bld) 4.9 % Normal [facility] Comment on above: Order Comment: Speci men Type: BLOOD SPECIMEN Ordering Facility: [facility] Address: [address] [place], [place] [address] Performed By: #### 5 7021-8 #### [facility] CLIA [id number] [address] [place] [address] [place] Erythrocyte distribution width (RBC) [Ratio] 13.3 % Normal 11.5-15.0 [facility] Comment on above: Order Comment: Speci men Type: BLOOD SPECIMEN Ordering Facility: [facility] Address: [address] [place] [address] Performed By: #### 5 7021-8 #### [facility] CLIA [id number] [address] [place] [address] [place] Hematocrit (Bld) [Volume fraction] 40.4 % Normal 36.0-46.0 [facility] Comment on above: Order Comment: Speci men Type: BLOOD SPECIMEN Ordering Facility: [facility] Address: [address] [place], [place] [address] Performed By: #### 5 7021-8 #### [facility] CLIA [id number] [address] [place] [address] [place] Hemoglobin (Bld) [Mass/Vol] 12.9 g/dL Normal 11.5-15.5 [facility] Comment on above: Order Comment: Speci men Type: BLOOD SPECIMEN Ordering Facility: [facility] Address: [address] [place], [place] [address] Performed By: #### 5 7021-8 #### [facility] CLIA [id number] [address] [place] IMMATURE GRAN % 0.1 % Normal [facility] Comment on above: Order Comment: Speci men Type: BLOOD SPECIMEN Ordering Facility: [facility] Address: [address] [place] [address] Performed By: #### 5 7021-8 #### [facility] CLIA [id number] [address] [place] [address] [place] IMMATURE GRAN ABS <0.03 Normal <0.10 [facility] Comment on above: Order Comment: Speci men Type: BLOOD SPECIMEN Ordering Facility: [facility] Address: [address] [place] [address] Performed By: #### 5 7021-8 #### [facility] CLIA [id number] [address] [place] [address] [place] Lymphocytes (Bld) [#/Vol] 2.70 10*3/uL Normal 1.00-4.00 [facility] Comment on above: Order Comment: Speci men Type: BLOOD SPECIMEN Ordering Facility: [facility] Address: [address] [place] [address] Performed By: #### 5 7021-8 #### [facility] CLIA [id number] [address] [place] [address] [place] Lymphocytes/100 WBC (Bld) 38.6 % Normal [facility] Comment on above: Order Comment: Speci men Type: BLOOD SPECIMEN Ordering Facility: [facility] Address: [address] [place] [address] Performed By: #### 5 7021-8 #### [facility] CLIA [id number] [address] [place] [address] [place] MCH (RBC) [Entitic mass] 28.9 pg Normal 26.0-34.0 [facility] Comment on above: Order Comment: Speci men Type: BLOOD SPECIMEN Ordering Facility: [facility] Address: [address] [place], [place] [address] Performed By: #### 5 7021-8 #### [facility] CLIA [id number] [address] [place] [address] MCHC (RBC) [Mass/Vol] 31.9 g/dL Normal 30.5-36.0 [facility] Comment on above: Order Comment: Speci men Type: BLOOD SPECIMEN Ordering Facility: [facility] Address: [address] [place], [place] [address] Performed By: #### 5 7021-8 #### [facility] [id number] [address] [place] [address] [place] MCV (RBC) [Entitic vol] 90.4 fL Normal 80.0-100.0 C [facility] Comment on above: Order Comment: Speci men Type: BLOOD SPECIMEN Ordering Facility: [facility] Address: [address] [place] [address] Performed By: #### 5 7021-8 #### [facility] [id number] [address] [place] [address] [place] Monocytes (Bld) [#/Vol] 0.49 10*3/uL Normal <0.87 [facility] Comment on above: Order Comment: Speci men Type: BLOOD SPECIMEN Ordering Facility: [facility] Address: [address] [place], [place] [address] Performed By: #### 5 7021-8 #### [facility] CLIA [id number] [address] [place] [address] Monocytes/100 WBC (Bld) 7.0 % Normal C [facility] Comment on above: Order Comment: Speci men Type: BLOOD SPECIMEN Ordering Facility: [facility] Address: [address] [place], [place] [address] Performed By: #### 5 7021-8 #### [facility] CLIA [id number] [address] [place] [address] [place] Neutrophils (Bld) [#/Vol] 3.40 10*3/uL Normal 1.45-7.50 [facility] Comment on above: Order Comment: Speci men Type: BLOOD SPECIMEN Ordering Facility: [facility] Address: [address] [place] [address] Performed By: #### 5 7021-8 #### [facility] CLIA [id number] [address] [place] [address] [place] Neutrophils/100 WBC (Bld) 48.7 % Normal [facility] Comment on above: Order Comment: Speci men Type: BLOOD SPECIMEN Ordering Facility: [facility] Address: [address] [place] [address] Performed By: #### 5 7021-8 #### [facility] CLIA [id number] [address] [place] [address] [place] Nucleated RBC (Bld) [#/Vol] 10*3/uL Normal <0.01 [facility] Comment on above: Order Comment: Speci men Type: BLOOD SPECIMEN Ordering Facility: [facility] Address: [address] [place] [address] Performed By: #### 5 7021-8 #### [facility] CLIA [id number] [address] [place] [address] [place] Nucleated RBC/100 WBC (Bld) [Ratio] 0.0 /100 WBC Normal [facility] Comment on above: Order Comment: Speci men Type: BLOOD SPECIMEN Ordering Facility: [facility] Address: [address] [place], [place] [address] Performed By: #### 5 7021-8 #### [facility] CLIA [id number] [address] [place] [address] [place] Platelet mean volume (Bld) [Entitic vol] 10.1 fL Normal 9.0-12.7 [facility] Comment on above: Order Comment: Speci men Type: BLOOD SPECIMEN Ordering Facility: [facility] Address: [address] [place], [place] [address] Performed By: #### 5 7021-8 #### [facility] CLIA [id number] [address] [place] [address] [place] Platelets (Bld) [#/Vol] 246 10*3/uL Normal 150-400 [facility] Comment on above: Order Comment: Speci men Type: BLOOD SPECIMEN Ordering Facility: [facility] Address: [address] [place], [place] [address] Performed By: #### 5 7021-8 #### [facility] CLIA [id number] [address] [place] [address] [place] RBC (Bld) [#/Vol] 4.47 10*6/uL Normal 3.90-5.20 [facility] Comment on above: Order Comment: Speci men Type: BLOOD SPECIMEN Ordering Facility: [facility] Address: [address] [place], [place] [address] Performed By: #### 5 7021-8 #### [facility] CLIA [id number] [address] [place] [address] [place] WBC (Bld) [#/Vol] 6.99 10*3/uL Normal 3.70-11.00 [facility] Comment on above: Order Comment: Speci men Type: BLOOD SPECIMEN Ordering Facility: [facility] Address: [address] [place], [place] [address] Performed By: #### 5 7021-8 #### [facility] CLIA [id number] [address] [place] [address] [place] FERRITIN BLDon 11-04-2021 Ferritin [Mass/Vol] 1428.0 ng/mL High 14.7-205.1 [facility] Comment on above: Order Comment: Speci men Type: BLOOD SPECIMEN Ordering Facility: [facility] Address: [address] [place] [address] Performed By: #### Elise RUSH FERR #### [facility] CLIA [id number] [address] [place] [address] [place] IRON + TIBCon 11-04-2021 Iron [Mass/Vol] 60 ug/dL Normal 41-186 [facility] Comment on above: Order Comment: Speci men Type: BLOOD SPECIMEN Ordering Facility: [facility] Address: [address] [place] [address] Performed By: #### Elise RUSH FERR #### [facility] CLIA [id number] [address] [place] [address] OF [facility] Iron binding capacity [Mass/Vol] 242 ug/dL Normal 232-386 [facility] Comment on above: Order Comment: Speci men Type: BLOOD SPECIMEN Ordering Facility: [facility] Address: [address] [place] [address] Performed By: #### Elise RUSH, FERR #### [facility] CLIA [id number] [address] [place] [address] Iron/TIBC [Molar ratio] 25 % Normal 15-57 C [facility] Comment on above: Order Comment: Speci men Type: BLOOD SPECIMEN Ordering Facility: [facility] Address: [address] [place] [address] Performed By: #### Elise RUSH FERR #### [facility] CLIA [id number] [address] [place] [address] [place] Justine 09-29-2021 JOCELYNE Telephone (HEMAWS) OLGA DONALDSON ([id number]) 1945 F Date Time Provider Department 09/29/21 [...] Date Reviewed: 05/07/2021 Reviewed by: 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 APRN.REGISTRY NURSE - Fully Assessed Reason for Visit: Results [95] Follow Up [171] Primary Visit Diagnosis:Anemia, unspecified type [D64.9] Order(s):CBC + DIFF [SQCBCDIF] Order #: [id number] FUTURE COMP METABOLIC PANEL [SQCMP] Order #: [id number] FUTURE PROTEIN ELECTROPHORESIS SERUM W/INTERP [SQSEPG] Order #: [id number] FUTURE MONOCLONAL PROTEIN, SERUM (BLOOD) [SQSERMPA] Order #: [id number] FUTURE Prescriptions as of 04/12/2022 - ascorbic [...] MIST) 0.65 % nasal spray Use 1 [place] in the nose as needed. - diltiazem [...] Specified Conge (more content not included)... Normal [facility] Justine 05-09-2021 [place] Telephone (EVELYN) OLGA DONALDSON ([id number]) 1945 F Date Time Provider Department 05/09/21 LASHONDA IRAHETA During your visit today, we recorded the following information about you: 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 APRN.MARLI 05/09/2021 9:20 AM Signed Please inform pt. [...] - Hives Date Reviewed: 05/07/2021 Reviewed by: Lahsonda Iraheta APRN.REGISTRY NURSE - Fully Assessed Reason for Visit: Results [...] MIST) 0.65 % nasal spray Use 1 [place] in the nose as needed. - diltiazem [...] by STACIE VARNER LPN on 05/09/21 Normal [facility] - Specimen inform ationon 03-27-2021 Specimen source Nom (Unsp spec) Stool [facility] No Panel Informationon 03-27 Occult Blood Diagnostic Positive Ab[facility] F[facility]IN BLDon 03-22-2021 Ferritin [Mass/Vol] 1064.0 ng/mL High 14.7 - 2 05.1 ng/mL [facility] CULTURE FUNGUSon 02-08-2018 CULTURE FUNGUS 1 Organism Nithya albicans Many Normal [facility] Comment on above: Performed By: #### C /FUN, S/FUN ####[facility] [id number] [place] [address] STAIN FUNGUSon 01-19-2018 STAIN FUNGUS STAIN FUNGUS --> Status: F 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 Direct exam by Calcofluor stain. Direct exam by Calcofluor stain. Normal [facility] Comment on above: Performed By: #### C /FUN, S/FUN ####[facility] [id number] [place] [address] Office Visit: Consult- Romero mina 01-13-2017 Adolescent depression screening assessment Adolescent depression screening assessment Invalid Interpretation Code [facility] Work Phone: [phone] Adult depression screening assessment Adolescent depression screening assessment [facility] Work Phone: [phone] Documentation of current medications (procedure) Done Invalid Interpretation Code [facility] Work Phone: [phone] Fall risk assessment Fall risk assessment [facility] Work Phone: [phone] Tobacco smoking status NHIS Never [facility] Work Phone: [phone] Tobacco smoking status NHIS Former smoker [facility] Work Phone: [phone] Tobacco use CPHS Former smoker Invalid Interpretation Code [facility] Work Phone: [phone] Clinical Lists Update: [employer] 04-11-2016 Left ventricular Ejection fraction 70 % [facility] Work Phone: [phone] Office Visiton 08-29-2015 cardiac risk group [facility] Work Phone: [phone] General cardiovascular disease 10Y risk [#] Wilmore.D'Agostino Not enough information [facility] Work Phone: [phone] Replaced Document: Midmark E CG Observationson 08-29-2015 EKG QRS axis 29 deg [facility] Work Phone: [phone] electrocardiogram interpretation Sinus Tachycardia -With rate variation cv = 10.WITHIN NORMAL LIMITS Invalid Interpretation Code [facility] Work Phone: [phone] GE use only - for [employer] import when terms are not otherwise specified 411 ms Invalid Interpretation Code [facility] Work Phone: [phone] Interpretation Sinus Tachycardia -With rate variation cv = 10.WITHIN NORMAL LIMITS [facility] Work Phone: [phone] P [place] 41 deg [facility] Work Phone: [phone] P wave axis, electrocardiogram 41 deg Invalid Interpretation Code [facility] Work Phone: [phone] LA Interval 134 ms [facility] Work Phone: [phone] LA interval, electrocardiogram 134 ms Invalid Interpretation Code [facility] Work Phone: [phone] Pulse (Heart Rate) 109 /min Invalid Interpretation Code [facility] Work Phone: [phone] QRS axis, electrocardiogram 29 deg Invalid Interpretation Code [facility] Work Phone: [phone] QRS Duration 80 ms [facility] Work Phone: [phone] QRS duration, electrocardiogram 80 ms Invalid Interpretation Code [facility] Work Phone: [phone] QT Interval new path ms [facility] Work Phone: [phone] QT interval, electrocardiogram new path ms Invalid Interpretation Code [facility] Work Phone: [phone] QTc Carney 411 ms [facility] Work Phone: [phone] T [place] 37 deg [facility] Work Phone: [phone] T wave axis, electrocardiogram 37 deg Invalid Interpretation Code [facility] Work Phone: [phone] Bacteria identified Anaer cx Nom (Unsp spec) Anaerobic microbial culture No anaerobic bacteria isolated. [facility] Work Phone: Bacteria identified Cx Nom ( Wound) Wound Culture Negative [facility] Work Phone: [phone] Wound Culture Staphylococcus epidermidis [facility] Work Phone: Wound Culture Corynebacterium striatum [facility] Work Phone: Culture, urine Bacteria identified Cx Nom (U) Klebsiella pneumoniae sp pneum [facility] Work Phone: Gram stain for investigation of transfusion reaction Microscopic observation Gram stain Nom (Unsp spec) [facility] Work Phone: Vital Signs Date Time Vital Sign Value Performing Clinician Facility 03-25-2025 13:49-0400 Body temperature 98.9 [degF] Dr. Ramone Smiley MD Work Phone: 0(911)269-035525 [place] [address] 03-25-2025 13:49-0400 Diastolic blood pressure 60 mm[Hg] Dr. Ramone Smiley MD Work Phone: 5(613)888-648725 [place] [address] 03-25-2025 13:49-0400 Heart rate 102 /min Dr. Ramone Smiley MD Work Phone: 7(002)768-730125 [place] [address] 03-25-2025 13:49-0400 Inhaled oxygen flow rate 2 L/min Dr. Ramone Smiley MD Work Phone: 1(859)269-505925 [place] [address] 03-25-2025 13:49-0400 Respiratory rate 16 /min Dr. Ramone Smiley MD Work Phone: 0(923)833-337725 [place] [address] 03-25-2025 13:49-0400 SaO2% (BldA) [Mass fraction] 100 % Dr. Ramone Smiley MD Work Phone: 9(274)366-446325 [place] [address] 03-25-2025 13:49-0400 Systolic blood pressure 136 mm[Hg] Dr. Ramone Smiley MD Work Phone: 5(598)454-831225 [place] [address] 03-25-2025 03:15-0400 Body mass index (BMI) [Ratio] 30.4 kg/m2 Dr. Ramone Smiley MD Work Phone: 0(841)646-894725 [place] [address] 03-25-2025 03:15-0400 Body weight 77.[address] Ramone Smiley MD Work Phone: 6(392)832-460125 [place] [address] 03-24-2025 14:00-0400 Body height 160.[address] Ramone Smiley MD Work Phone: 6(531)804-154725 [place] [address] 03-21-2025 22:28-0400 Body temperature 98.4 [degF] Dr. Ramone Smiley MD Work Phone: 2(646)999-190525 [place] [address] 03-21-2025 22:28-0400 Diastolic blood pressure 81 mm[Hg] Dr. Ramone Smiley MD Work Phone: 1(139)320-230825 [place] [address] 03-21-2025 22:28-0400 Heart rate 86 /min Dr. Ramone Smiley MD Work Phone: 6(256)853-978925 [place] [address] 03-21-2025 22:28-0400 Respiratory rate 19 /min Dr. Ramone Smiley MD Work Phone: 7(467)538-558925 [place] [address] 03-21-2025 22:28-0400 SaO2% (BldA) [Mass fraction] 94 % Dr. Ramone Smiley MD Work Phone: 5(838)997-364725 [place] [address] 03-21-2025 22:28-0400 Systolic blood pressure 136 mm[Hg] Dr. Ramone Smiley MD Work Phone: 1(321)552-493025 [place] [address] 03-21-2025 21:00-0400 Inhaled oxygen flow rate 2 L/min Dr. Ramone Smiley MD Work Phone: 0(270)643-853925 [place] [address] 03-21-2025 13:31-0400 Body mass index (BMI) [Ratio] 27.6 kg/m2 Dr. Ramone Smiley MD Work Phone: 6(595)975-492125 [place] [address] 03-21-2025 13:31-0400 Body weight 70.[address] Ramone Smiley MD Work Phone: 3(440)939-107625 [place] [address] 03-21-2025 13:23-0400 Body height 160.[address] Ramone Smiley MD Work Phone: 2(847)580-156025 [place] [address] 03-04-2025 23:10-0400 Body temperature 98 [degF] Dr. Ramone Smiley MD Work Phone: 9(807)699-750525 [place] [address] 03-04-2025 23:10-0400 Diastolic blood pressure 80 mm[Hg] Dr. Ramone Smiley MD Work Phone: 2(035)248-627625 [place] [address] 03-04-2025 23:10-0400 Heart rate 81 /min Dr. Ramone Smiley MD Work Phone: 5(577)085-019525 [place] [address] 03-04-2025 23:10-0400 Respiratory rate 16 /min Dr. Ramone Smiley MD Work Phone: 2(600)224-837025 [place] [address] 03-04-2025 23:10-0400 SaO2% (BldA) [Mass fraction] 95 % Dr. Ramone Smiley MD Work Phone: 5(456)081-671425 [place] [address] 03-04-2025 23:10-0400 Systolic blood pressure 135 mm[Hg] Dr. Ramone Smiley MD Work Phone: 5(422)382-716225 [place] [address] 03-04-2025 19:04-0400 Inhaled oxygen flow rate 2 L/min Dr. Ramone Smiley MD Work Phone: 3(354)841-528025 [place] [address] 03-04-2025 18:54-0400 Body mass index (BMI) [Ratio] 28 kg/m2 Dr. Ramone Smiley MD Work Phone: 3(253)007-027825 [place] [address] 03-04-2025 18:54-0400 Body weight 71.[address] Ramone Smiley MD Work Phone: 5(693)419-248425 [place] [address] 03-04-2025 18:37-0400 Body height 160.[address] Ramone Smiley MD Work Phone: 8(377)465-747825 [place] [address] 02-19-2025 00:38-0400 Body temperature 98.7 [degF] Dr. Ramone Smiley MD Work Phone: 1(839)325-614025 [place] [address] 02-19-2025 00:38-0400 Diastolic blood pressure 86 mm[Hg] Dr. Ramone Smiley MD Work Phone: 4(190)215-247725 [place] [address] 02-19-2025 00:38-0400 Heart rate 98 /min Dr. Ramone Smiley MD Work Phone: 7(013)384-891425 [place] [address] 02-19-2025 00:38-0400 Respiratory rate 22 /min Dr. Ramone Smiley MD Work Phone: 2(755)415-595925 [place] [address] 02-19-2025 00:38-0400 SaO2% (BldA) [Mass fraction] 98 % Dr. Ramone Smiley MD Work Phone: 1(786)930-469925 [place] [address] 02-19-2025 00:38-0400 Systolic blood pressure 122 mm[Hg] Dr. Ramone Smiley MD Work Phone: 8(803)711-459325 [place] [address] 02-19-2025 00:23-0400 Inhaled oxygen flow rate 2 L/min Dr. Ramone Smiley MD Work Phone: [facility] 02-18-2025 20:51-0400 Body height 160.[address] Ramone Smiley MD Work Phone: [facility] 02-18-2025 20:51-0400 Body mass index (BMI) [Ratio] 30.4 kg/m2 Dr. Ramone Smiley MD Work Phone: 9(877)590-842582 [place] [address] 02-18-2025 20:51-0400 Body weight 77.[address] Ramone Smiley MD Work Phone: 8(089)185-218125 [place] [address] 02-17-2025 18:40-0400 Heart rate 78 /min Dr. Ramone Smiley MD Work Phone: 5(203)124-438025 [place] [address] 02-17-2025 18:40-0400 Inhaled oxygen flow rate 2 L/min Dr. Ramone Smiley MD Work Phone: 2(389)666-506425 [place] [address] 02-17-2025 18:40-0400 Respiratory rate 18 /min Dr. Ramone Smiley MD Work Phone: 6(953)317-258325 [place] [address] 02-17-2025 18:40-0400 SaO2% (BldA) [Mass fraction] 94 % Dr. Ramone Smiley MD Work Phone: 2(396)382-601825 [place] [address] 02-17-2025 18:08-0400 Body temperature 98.9 [degF] Dr. Ramone Smiley MD Work Phone: 7(781)469-206982 [place] [address] 02-17-2025 18:08-0400 Diastolic blood pressure 54 mm[Hg] Dr. Ramone Smiley MD Work Phone: 5(826)199-260082 [place] [address] 02-17-2025 18:08-0400 Systolic blood pressure 137 mm[Hg] Dr. Ramone Smiley MD Work Phone: 3(067)806-815225 [place] [address] 02-17-2025 04:49-0400 Body mass index (BMI) [Ratio] 29.4 kg/m2 Dr. Ramone Smiley MD Work Phone: 3(877)734-538582 [place] [address] 02-17-2025 04:49-0400 Body weight 75.[address] Ramone Smiley MD Work Phone: 5(363)762-320382 [place] [address] 02-15-2025 15:20-0400 Body height 160.[address] Ramone Smiley MD Work Phone: 6(871)888-525725 [place] [address] 02-15-2025 13:54-0400 Body temperature 99.6 [degF] Dr. Ramone Smiley MD Work Phone: 2(076)959-847225 [place] [address] 02-15-2025 13:54-0400 Diastolic blood pressure 53 mm[Hg] Dr. Ramone Smiley MD Work Phone: 1(779)630-213825 [place] [address] 02-15-2025 13:54-0400 Heart rate 98 /min Dr. Ramone Smiley MD Work Phone: 3(382)346-062525 [place] [address] 02-15-2025 13:54-0400 Inhaled oxygen flow rate 3 L/min Dr. Ramone Smiley MD Work Phone: 7(563)066-027525 [place] [address] 02-15-2025 13:54-0400 Respiratory rate 22 /min Dr. Ramone Smiley MD Work Phone: 2(781)771-930025 [place] [address] 02-15-2025 13:54-0400 SaO2% (BldA) [Mass fraction] 98 % Dr. Ramone Smiley MD Work Phone: 2(901)836-789525 [place] [address] 02-15-2025 13:54-0400 Systolic blood pressure 110 mm[Hg] Dr. Ramone Smiley MD Work Phone: 0(879)265-776925 [place] [address] 02-15-2025 08:36-0400 Body height 160.[address] Ramone Smiley MD Work Phone: 6(727)573-699525 [place] [address] 02-15-2025 08:36-0400 Body mass index (BMI) [Ratio] 30.4 kg/m2 Dr. Ramone Smiley MD Work Phone: 4(834)213-429025 [place] [address] 02-15-2025 08:36-0400 Body weight 78.[address] Ramone Smiley MD Work Phone: 8(041)876-519325 [place] [address] 02-13-2025 16:00-0400 Inhaled oxygen flow rate 2 L/min Dr. Ramone Smiley MD Work Phone: 8(604)069-792225 [place] [address] 02-13-2025 14:04-0400 Body temperature 98.4 [degF] Dr. Ramone Smiley MD Work Phone: 5(836)523-972125 [place] [address] 02-13-2025 14:04-0400 Heart rate 94 /min Dr. Ramone Smiley MD Work Phone: 1(316)935-775425 [place] [address] 02-13-2025 14:04-0400 Respiratory rate 20 /min Dr. Ramone Smiley MD Work Phone: 6(317)352-846425 [place] [address] 02-13-2025 14:04-0400 SaO2% (BldA) [Mass fraction] 94 % Dr. Ramone Smiley MD Work Phone: 3(154)904-105225 [place] [address] 02-13-2025 08:41-0400 Diastolic blood pressure 51 mm[Hg] Dr. Ramone Smiley MD Work Phone: 2(796)355-231725 [place] [address] 02-13-2025 08:41-0400 Systolic blood pressure 132 mm[Hg] Dr. Ramone Smiley MD Work Phone: 6(054)313-532025 [place] [address] 02-10-2025 13:27-0400 Body height 160.[address] Ramone Smiley MD Work Phone: 2(052)361-883125 [place] [address] 02-10-2025 13:27-0400 Body weight 76.[address] Ramone Smiley MD Work Phone: 0(011)378-339525 [place] [address] 02-09-2025 16:43-0400 Body mass index (BMI) [Ratio] 29.9 kg/m2 Dr. Ramone Smiley MD Work Phone: 1(860)945-413725 [place] [address] 02-09-2025 15:12-0400 Inhaled oxygen flow rate 2 L/min Dr. Ramone Smiley MD Work Phone: 6(437)107-723725 [place] [address] 02-09-2025 15:12-0400 SaO2% (BldA) [Mass fraction] 91 % Dr. Ramone Smiley MD Work Phone: 9(110)771-964225 [place] [address] 02-09-2025 15:08-0400 Body temperature 99 [degF] Dr. Ramone Smiley MD Work Phone: [facility] 02-09-2025 15:08-0400 Diastolic blood pressure 46 mm[Hg] Dr. Ramone Smiley MD Work Phone: 2(601)959-824825 [place] [address] 02-09-2025 15:08-0400 Heart rate 94 /min Dr. Ramone Smiley MD Work Phone: 3(330)080-034325 [place] [address] 02-09-2025 15:08-0400 Respiratory rate 25 /min Dr. Ramone Smiley MD Work Phone: 9(059)729-890925 [place] [address] 02-09-2025 15:08-0400 Systolic blood pressure 136 mm[Hg] Dr. Ramone Smiely MD Work Phone: 8(633)394-939925 [place] [address] 02-09-2025 11:52-0400 Body height 160.[address] Ramone Smiley MD Work Phone: 0(464)504-097825 [place] [address] 02-09-2025 11:52-0400 Body mass index (BMI) [Ratio] 30.1 kg/m2 Dr. Ramone Simley MD Work Phone: 6(003)949-011725 [place] [address] 02-09-2025 11:52-0400 Body weight 77.[address] Ramone Smiley MD Work Phone: 1(688)889-224525 [place] [address] 02-06-2025 15:38-0400 Body temperature 97.5 [degF] Dr. Ramone Smiley MD Work Phone: 3(750)487-623225 [place] [address] 02-06-2025 15:38-0400 Diastolic blood pressure 81 mm[Hg] Dr. Ramone Smiley MD Work Phone: 6(197)113-826025 [place] [address] 02-06-2025 15:38-0400 Heart rate 74 /min Dr. Ramone Smiley MD Work Phone: 7(098)044-907525 [place] [address] 02-06-2025 15:38-0400 Respiratory rate 18 /min Dr. Ramone Smiley MD Work Phone: 6(406)875-162225 [place] [address] 02-06-2025 15:38-0400 SaO2% (BldA) [Mass fraction] 93 % Dr. Ramone Smiley MD Work Phone: 9(609)922-959582 [place] [address] 02-06-2025 15:38-0400 Systolic blood pressure 117 mm[Hg] Dr. Ramone Smiley MD Work Phone: 5(574)868-535225 [place] [address] 02-06-2025 07:36-0400 Inhaled oxygen flow rate 2 L/min Dr. Ramone Smiley MD Work Phone: 0(595)662-393025 [place] [address] 02-04-2025 12:34-0400 Body height 160.[address] Ramone Smiley MD Work Phone: 4(106)048-649125 [place] [address] 02-04-2025 12:34-0400 Body mass index (BMI) [Ratio] 27.8 kg/m2 Dr. Ramone Smiley MD Work Phone: 9(192)877-708625 [place] [address] 02-04-2025 12:34-0400 Body weight 71.[address] Ramone Smiley MD Work Phone: 5(085)843-076425 [place] [address] 02-04-2025 11:06-0400 Body temperature 98.6 [degF] Dr. Ramone Smiley MD Work Phone: 0(275)139-945525 [place] [address] 02-04-2025 11:06-0400 Diastolic blood pressure 46 mm[Hg] Dr. Ramone Smiley MD Work Phone: 0(407)745-511925 [place] [address] 02-04-2025 11:06-0400 Heart rate 88 /min Dr. Ramone Smiley MD Work Phone: 3(189)274-139525 [place] [address] 02-04-2025 11:06-0400 Respiratory rate 30 /min Dr. Ramone Smiley MD Work Phone: 7(235)818-214425 [place] [address] 02-04-2025 11:06-0400 SaO2% (BldA) [Mass fraction] 99 % Dr. Ramone Smiley MD Work Phone: 9(631)258-148925 [place] [address] 02-04-2025 11:06-0400 Systolic blood pressure 111 mm[Hg] Dr. Ramone Smiley MD Work Phone: 3(067)904-108225 [place] [address] 02-04-2025 11:00-0400 Inhaled oxygen flow rate 3 L/min Dr. Ramone Smiley MD Work Phone: 2(108)901-108382 [place] [address] 02-04-2025 06:20-0400 Body height 160.[address] Ramone Smiley MD Work Phone: 9(435)677-092325 [place] [address] 02-04-2025 06:20-0400 Body mass index (BMI) [Ratio] 29.9 kg/m2 Dr. Ramone Smiley MD Work Phone: 4(189)365-605625 [place] [address] 02-04-2025 06:20-0400 Body weight 76.[address] Ramone Smiley MD Work Phone: 4(939)785-831425 [place] [address] 01-31-2025 06:28-0400 Body mass index (BMI) [Ratio] 27.4 kg/m2 Dr. Ramone Smiley MD Work Phone: 8(367)950-812925 [place] [address] 01-31-2025 06:28-0400 Body weight 70.[address] Ramone Smiley MD Work Phone: 0(038)241-919725 [place] [address] 01-31-2025 06:28-0400 Diastolic blood pressure 59 mm[Hg] Dr. Ramone Smiley MD Work Phone: 4(022)405-905525 [place] [address] 01-31-2025 06:28-0400 Heart rate 95 /min Dr. Ramone Smiley MD Work Phone: 4(723)376-284025 [place] [address] 01-31-2025 06:28-0400 Respiratory rate 18 /min Dr. Ramone Smiley MD Work Phone: 9(167)038-940425 [place] [address] 01-31-2025 06:28-0400 SaO2% (BldA) [Mass fraction] 95 % Dr. Ramone Smiley MD Work Phone: 9(991)348-923525 [place] [address] 01-31-2025 06:28-0400 Systolic blood pressure 107 mm[Hg] Dr. Ramone Smiley MD Work Phone: 8(233)213-970925 [place] [address] 01-26-2025 05:13-0400 Body temperature 98.3 [degF] Dr. Ramone Smiley MD Work Phone: 7(045)954-172425 [place] [address] 01-26-2025 05:13-0400 Diastolic blood pressure 72 mm[Hg] Dr. Ramone Smiley MD Work Phone: [facility] 01-26-2025 05:13-0400 Heart rate 83 /min Dr. Ramone Smiley MD Work Phone: 3(054)771-812925 [place] [address] 01-26-2025 05:13-0400 Respiratory rate 18 /min Dr. Ramone Smiley MD Work Phone: 9(665)131-800925 [place] [address] 01-26-2025 05:13-0400 SaO2% (BldA) [Mass fraction] 97 % Dr. Ramone Smiley MD Work Phone: 8(277)188-430925 [place] [address] 01-26-2025 05:13-0400 Systolic blood pressure 116 mm[Hg] Dr. Ramone Smiley MD Work Phone: 2(303)020-156725 [place] [address] 01-26-2025 03:02-0400 Body height 160.[address] Ramone Smiley MD Work Phone: 1(981)545-254225 [place] [address] 01-26-2025 03:02-0400 Body mass index (BMI) [Ratio] 31.4 kg/m2 Dr. Ramone Smiley MD Work Phone: 1(882)458-355625 [place] [address] 01-26-2025 03:02-0400 Body weight 80.[address] Ramone Smiley MD Work Phone: 7(964)372-571025 [place] [address] 01-24-2025 13:57-0400 Body temperature 97.4 [degF] Dr. Ramone Smiley MD Work Phone: 3(785)749-667925 [place] [address] 01-24-2025 13:57-0400 Diastolic blood pressure 68 mm[Hg] Dr. Ramone Smiley MD Work Phone: 2(634)586-006325 [place] [address] 01-24-2025 13:57-0400 Heart rate 87 /min Dr. Ramone Smiley MD Work Phone: 0(950)201-467225 [place] [address] 01-24-2025 13:57-0400 Respiratory rate 16 /min Dr. Ramone Smiley MD Work Phone: 7(308)064-731625 [place] [address] 01-24-2025 13:57-0400 SaO2% (BldA) [Mass fraction] 97 % Dr. Ramone Smiley MD Work Phone: 3(095)600-555182 [place] [address] 01-24-2025 13:57-0400 Systolic blood pressure 111 mm[Hg] Dr. Ramone Smiley MD Work Phone: 7(698)435-467282 [place] [address] 01-24-2025 05:23-0400 Body mass index (BMI) [Ratio] 30.7 kg/m2 Dr. Ramone Smiley MD Work Phone: 6(665)613-330025 [place] [address] 01-24-2025 05:23-0400 Body weight 78.[address] Ramone Smiley MD Work Phone: 3(405)008-718225 [place] [address] 01-22-2025 14:00-0400 Inhaled oxygen concentration 24 % Dr. Ramone Smiley MD Work Phone: 3(753)266-709625 [place] [address] 01-22-2025 11:00-0400 Inhaled oxygen flow rate 2 L/min Dr. Ramone Smiley MD Work Phone: 1(490)132-695125 [place] [address] 01-20-2025 10:06-0400 Body height 160.[address] Ramone Smiley MD Work Phone: 8(112)444-528525 [place] [address] 01-15-2025 18:58-0400 Body temperature 97.9 [degF] Dr. Ramone Smiley MD Work Phone: 3(118)216-724725 [place] [address] 01-15-2025 18:58-0400 Diastolic blood pressure 70 mm[Hg] Dr. Ramone Smiley MD Work Phone: 7(379)968-987325 [place] [address] 01-15-2025 18:58-0400 Heart rate 69 /min Dr. Ramone Smiley MD Work Phone: 9(609)700-397525 [place] [address] 01-15-2025 18:58-0400 Respiratory rate 22 /min Dr. Ramone Smiley MD Work Phone: 1(175)874-622925 [place] [address] 01-15-2025 18:58-0400 SaO2% (BldA) [Mass fraction] 98 % Dr. Ramone Smiley MD Work Phone: 8(325)[phone] [place] [address] 01-15-2025 18:58-0400 Systolic blood pressure 130 mm[Hg] Dr. Ramone Smiley MD Work Phone: 4(858)[phone] [place] [address] 01-15-2025 14:14-0400 Body height 160.[address] Ramone Smiley MD Work Phone: [facility] 01-15-2025 14:14-0400 Body mass index (BMI) [Ratio] 32.3 kg/m2 Dr. Ramone Smiley MD Work Phone: [facility] 01-15-2025 14:14-0400 Body weight 82.[address] Ramone Smiley MD Work Phone: 7(440)[phone] [address] 01-07-2025 17:34-0400 Body temperature 97.6 [degF] Dr. Ramone Smiley MD Work Phone: 7(694)[phone] [address] 01-07-2025 17:34-0400 Diastolic blood pressure 78 mm[Hg] Dr. Ramone Smiley MD Work Phone: 4(977)[phone] [address] 01-07-2025 17:34-0400 Heart rate 82 /min Dr. Ramone Smiley MD Work Phone: 9(632)947-724858 [address] 01-07-2025 17:34-0400 Respiratory rate 19 /min Dr. Ramone Smiley MD Work Phone: 3(563)148-421358 [address] 01-07-2025 17:34-0400 SaO2% (BldA) [Mass fraction] 97 % Dr. Ramone Smiley MD Work Phone: 5(564)760-831658 [address] 01-07-2025 17:34-0400 Systolic blood pressure 147 mm[Hg] Dr. Ramone Smiley MD Work Phone: [facility] 01-07-2025 14:56-0400 Body height 160.[address] Ramone Smiley MD Work Phone: [facility] 01-07-2025 14:56-0400 Body mass index (BMI) [Ratio] 31.5 kg/m2 Dr. Ramone Smiley MD Work Phone: [facility] 01-07-2025 14:56-0400 Body weight 80.[address] Ramone Smiley MD Work Phone: [facility] 12-30-2023 14:14-0400 Body temperature 98.9 [degF] Dr. Ramone Smiley Work Phone: [facility] 12-30-2023 14:14-0400 Diastolic blood pressure 60 mm[Hg] Dr. Ramone Smiley Work Phone: [facility] 12-30-2023 14:14-0400 Heart rate 80 /min Dr. Ramone Smiley Work Phone: [facility] 12-30-2023 14:14-0400 Respiratory rate 18 /min Dr. Ramone Smiley Work Phone: [facility] 12-30-2023 14:14-0400 SaO2% (BldA) [Mass fraction] 95 % Dr. Ramone Smiley Work Phone: [facility] 12-30-2023 14:14-0400 Systolic blood pressure 131 mm[Hg] Dr. Ramone Smiley Work Phone: [facility] 12-29-2023 07:09-0400 Inhaled oxygen flow rate 2 L/min Dr. Ramone Smiley Work Phone: [facility] 12-28-2023 11:27-0400 Body height 160.[address] Ramone Smiley Work Phone: [facility] 12-28-2023 11:27-0400 Body mass index (BMI) [Ratio] 27.8 kg/m2 Dr. Ramone Smiley Work Phone: [facility] 12-28-2023 11:27-0400 Body weight 71.[address] Ramone Smiley Work Phone: [facility] 12-27-2023 23:42-0400 Body temperature 97.5 [degF] [facility] 12-27-2023 23:42-0400 Diastolic blood pressure 59 mm[Hg] [facility] 12-27-2023 23:42-0400 Heart rate 77 /min [facility] 12-27-2023 23:42-0400 Respiratory rate 20 /min [facility] 12-27-2023 23:42-0400 SaO2% (BldA) [Mass fraction] 97 % [facility] 12-27-2023 23:42-0400 Systolic blood pressure 159 mm[Hg] [facility] 12-27-2023 22:06-0400 Body height 160.02 cm [facility] 12-27-2023 22:06-0400 Body mass index (BMI) [Ratio] 29.5 kg/m2 [facility] 12-27-2023 22:06-0400 Body weight 75.6 kg [facility] 08-17-2023 13:26-0500 Body temperature 97.1 [degF] Dr. Ramone Smiley Work Phone: [facility] 08-17-2023 13:26-0500 Diastolic blood pressure 65 mm[Hg] Dr. Ramone Smiley Work Phone: [facility] 08-17-2023 13:26-0500 Heart rate 84 /min Dr. Ramone Smiley Work Phone: [facility] 08-17-2023 13:26-0500 Respiratory rate 18 /min Dr. Ramone Smiley Work Phone: [facility] 08-17-2023 13:26-0500 SaO2% (BldA) [Mass fraction] 98 % Dr. Ramone Smiley Work Phone: [facility] 08-17-2023 13:26-0500 Systolic blood pressure 140 mm[Hg] Dr. Ramone Smiley Work Phone: [facility] 08-14-2023 13:28-0500 Body height 160.[address] Ramone Smiley Work Phone: [facility] 08-14-2023 13:28-0500 Body weight 60.[address] Ramone Smiley Work Phone: [facility] 08-13-2023 15:22-0500 Body mass index (BMI) [Ratio] 23.4 kg/m2 Dr. Ramone Smiley Work Phone: [facility] 08-13-2023 14:18-0500 Body temperature 98.6 [degF] Dr. Ramone Smiley Work Phone: [facility] 08-13-2023 14:18-0500 Diastolic blood pressure 59 mm[Hg] Dr. Ramone Smiley Work Phone: [facility] 08-13-2023 14:18-0500 Heart rate 107 /min Dr. Ramone Smiley Work Phone: [facility] 08-13-2023 14:18-0500 Respiratory rate 20 /min Dr. Ramone Smiley Work Phone: [facility] 08-13-2023 14:18-0500 SaO2% (BldA) [Mass fraction] 97 % Dr. Ramone Smiley Work Phone: [facility] 08-13-2023 14:18-0500 Systolic blood pressure 152 mm[Hg] Dr. Ramone Smiley Work Phone: 1(232)607-696082 [place] [address] 08-13-2023 10:03-0500 Body height 160.[address] Ramone Smiley Work Phone: [facility] 08-13-2023 10:03-0500 Body mass index (BMI) [Ratio] 24.5 kg/m2 Dr. Ramone Smiley Work Phone: 4(289)111-223482 [place] [address] 08-13-2023 10:03-0500 Body weight [address] Ramone Smiley Work Phone: [facility] 08-07-2023 20:23-0500 Body temperature 97.6 [degF] Dr. Ramone Smiley Work Phone: [facility] 08-07-2023 20:23-0500 Diastolic blood pressure 51 mm[Hg] Dr. Ramone Smiley Work Phone: [facility] 08-07-2023 20:23-0500 Heart rate 87 /min Dr. Ramone Smiley Work Phone: [facility] 08-07-2023 20:23-0500 Respiratory rate 18 /min Dr. Rmaone Smiley Work Phone: 3(552)026-621082 [place] [address] 08-07-2023 20:23-0500 SaO2% (BldA) [Mass fraction] 98 % Dr. Ramone Smiley Work Phone: [facility] 08-07-2023 20:23-0500 Systolic blood pressure 115 mm[Hg] Dr. Ramone Smiley Work Phone: 6(902)825-991382 [place] [address] 07-19-2023 01:01-0500 Diastolic blood pressure 61 mm[Hg] Dr. Ramone Smiley Work Phone: 1(512)825-955582 [place] [address] 07-19-2023 01:01-0500 Heart rate 101 /min Dr. Ramone Smiley Work Phone: 4(891)767-831225 [place] [address] 07-19-2023 01:01-0500 Respiratory rate 20 /min Dr. Ramone Smiley Work Phone: 9(464)034-154258 [address] 07-19-2023 01:01-0500 Systolic blood pressure 145 mm[Hg] Dr. Ramone Smiley Work Phone: 2(966)591-640058 [address] 07-18-2023 23:28-0500 Body mass index (BMI) [Ratio] 25.7 kg/m2 Dr. Ramone Smiley Work Phone: 0(645)833-024158 [address] 07-18-2023 23:28-0500 Body weight 65.[address] Ramone Smiley Work Phone: 6(359)919-528982 [place] [address] 07-18-2023 22:47-0500 Body temperature 97.6 [degF] Dr. Ramone Smiley Work Phone: [facility] 07-18-2023 22:47-0500 SaO2% (BldA) [Mass fraction] 96 % Dr. Ramone Smiley Work Phone: 8(652)826-615782 [place] [address] 07-18-2023 22:44-0500 Body height 160.[address] Ramone Smiley Work Phone: 6(199)185-134482 [place] [address] 07-15-2023 13:24-0500 Body temperature 98.2 [degF] Dr. Ramone Smiley Work Phone: [facility] 07-15-2023 13:24-0500 Diastolic blood pressure 74 mm[Hg] Dr. Ramone Smiley Work Phone: [facility] 07-15-2023 13:24-0500 Heart rate 89 /min Dr. Ramone Smiley Work Phone: [facility] 07-15-2023 13:24-0500 SaO2% (BldA) [Mass fraction] 92 % Dr. Ramone Smiley Work Phone: [facility] 07-15-2023 13:24-0500 Systolic blood pressure 122 mm[Hg] Dr. Ramone Smiley Work Phone: [facility] 01-28-2023 16:36-0400 Diastolic blood pressure 63 mm[Hg] [facility] 01-28-2023 16:36-0400 Heart rate 75 /min [facility] 01-28-2023 16:36-0400 Systolic blood pressure 170 mm[Hg] [facility] 01-28-2023 14:54-0400 Body height 160.02 cm [facility] 01-28-2023 14:54-0400 Body mass index (BMI) [Ratio] 26.9 kg/m2 [facility] 01-28-2023 14:54-0400 Body temperature 97.8 [degF] [facility] 01-28-2023 14:54-0400 Body weight 69 kg [facility] 01-28-2023 14:54-0400 Respiratory rate 25 /min [facility] 01-28-2023 14:54-0400 SaO2% (BldA) [Mass fraction] 97 % [facility] 07-14-2022 18:11-0500 Diastolic blood pressure 64 mm[Hg] [facility] Work Phone: 07-14-2022 18:11-0500 Heart rate 73 /min [facility] Work Phone: 07-14-2022 18:11-0500 Respiratory rate 18 /min [facility] Work Phone: 07-14-2022 18:11-0500 SaO2% (BldA) [Mass fraction] 98 % [facility] Work Phone: 07-14-2022 18:11-0500 Systolic blood pressure 174 mm[Hg] [facility] Work Phone: 07-14-2022 11:59-0500 Body height 160.02 cm [facility] Work Phone: 07-14-2022 11:59-0500 Body mass index (BMI) [Ratio] 31.1 kg/m2 [facility] Work Phone: 07-14-2022 11:59-0500 Body temperature 97.2 [degF] [facility] Work Phone: 07-14-2022 11:59-0500 Body weight 79.83 kg [facility] Work Phone: 05-07-2022 13:26-0400 Body height 158.1 cm 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 DUMPLING MACHINE OPERATOR.REGISTRY NURSE Work Phone: [facility] 05-07-2022 13:26-0400 Body temperature 97.2 [degF] 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 DUMPLING MACHINE OPERATOR.REGISTRY NURSE Work Phone: [facility] 05-07-2022 13:26-0400 Body weight 73.71 kg Mallie Iraheta DUMPLING MACHINE OPERATOR.REGISTRY NURSE Work Phone: [facility] 05-07-2022 13:26-0400 Diastolic blood pressure 68 mm[Hg] Mallie Iraheta DUMPLING MACHINE OPERATOR.REGISTRY NURSE Work Phone: [facility] 05-07-2022 13:26-0400 Heart rate 66 /min Mallie Iraheta DUMPLING MACHINE OPERATOR.REGISTRY NURSE Work Phone: [facility] 05-07-2022 13:26-0400 Systolic blood pressure 160 mm[Hg] Mallie Iraheta DUMPLING MACHINE OPERATOR.REGISTRY NURSE Work Phone: [facility] 02-26-2022 09:43-0400 Body height 160.[address] Ramone Smiley Work Phone: [facility] Work Phone: 02-26-2022 09:43-0400 Body mass index (BMI) [Ratio] 28.1 kg/m2 Dr. Ramone Smiley Work Phone: [facility] Work Phone: 02-26-2022 09:43-0400 Body temperature 97.9 [degF] Dr. Ramone Smiley Work Phone: [facility] Work Phone: 02-26-2022 09:43-0400 Body weight 72.[address] Ramone Smiley Work Phone: [facility] Work Phone: 02-26-2022 09:43-0400 Diastolic blood pressure 80 mm[Hg] Dr. Ramone Smiley Work Phone: [facility] Work Phone: 02-26-2022 09:43-0400 Heart rate 70 /min Dr. Ramone Smiley Work Phone: [facility] Work Phone: 02-26-2022 09:43-0400 Respiratory rate 14 /min Dr. Ramone Smiley Work Phone: [facility] Work Phone: 02-26-2022 09:43-0400 SaO2% (BldA) [Mass fraction] 98 % Dr. Ramone Smiley Work Phone: [facility] Work Phone: 02-26-2022 09:43-0400 Systolic blood pressure 134 mm[Hg] Dr. Ramone Smiley Work Phone: [facility] Work Phone: 12-17-2021 13:23-0400 Diastolic blood pressure 60 mm[Hg] Dr. Ramone Smiley Work Phone: [facility] Work Phone: 12-17-2021 13:23-0400 Systolic blood pressure 154 mm[Hg] Dr. Ramone Smiley Work Phone: [facility] Work Phone: 12-10-2021 10:34-0400 Diastolic blood pressure 70 mm[Hg] Dr. Ramone Smiley Work Phone: [facility] Work Phone: 12-10-2021 10:34-0400 Systolic blood pressure 124 mm[Hg] Dr. Ramone Smiley Work Phone: [facility] Work Phone: 12-06-2021 15:22-0400 Body mass index (BMI) [Ratio] 30.2 kg/m2 Dr. Ramoen Smiley Work Phone: [facility] Work Phone: 12-06-2021 15:22-0400 Body weight 77.[address] Ramone Smiley Work Phone: [facility] Work Phone: 12-06-2021 15:22-0400 Diastolic blood pressure 84 mm[Hg] Dr. Ramone Smiley Work Phone: [facility] Work Phone: 12-06-2021 15:22-0400 Systolic blood pressure 122 mm[Hg] Dr. Ramone Smiley Work Phone: [facility] Work Phone: 12-06-2021 15:22-0400 Body height 160.[address] Ramone Smiley Work Phone: [facility] Work Phone: 12-06-2021 15:22-0400 Body mass index (BMI) [Ratio] 30.2 kg/m2 Dr. Ramone Smiley Work Phone: [facility] Work Phone: 12-06-2021 15:22-0400 Body weight 77.[address] Ramone Smiley Work Phone: [facility] Work Phone: 12-06-2021 15:22-0400 Diastolic blood pressure 84 mm[Hg] Dr. Ramone Smiley Work Phone: [facility] Work Phone: 12-06-2021 15:22-0400 Systolic blood pressure 122 mm[Hg] Dr. Ramone Smiley Work Phone: [facility] Work Phone: 12-04-2021 11:22-0400 Diastolic blood pressure 70 mm[Hg] Dr. Ramone Smiley Work Phone: [facility] Work Phone: 12-04-2021 11:22-0400 Systolic blood pressure 124 mm[Hg] Dr. Ramone Smiley Work Phone: [facility] Work Phone: 12-04-2021 11:22-0400 Diastolic blood pressure 70 mm[Hg] Dr. Ramone Smiley Work Phone: [facility] Work Phone: 12-04-2021 11:22-0400 Systolic blood pressure 124 mm[Hg] Dr. Ramone Smiley Work Phone: [facility] Work Phone: 12-02-2021 14:03-0400 Diastolic blood pressure 60 mm[Hg] Dr. Ramone Smiley Work Phone: [facility] Work Phone: 12-02-2021 14:03-0400 Systolic blood pressure 138 mm[Hg] Dr. Ramone Smiley Work Phone: [facility] Work Phone: 12-02-2021 14:03-0400 Diastolic blood pressure 60 mm[Hg] Dr. Ramone Smiley Work Phone: [facility] Work Phone: 12-02-2021 14:03-0400 Systolic blood pressure 138 mm[Hg] Dr. Ramone Smiley Work Phone: [facility] Work Phone: 01-13-2017 14:21-0400 BMI (Body [...] Pulse (Heart Rate) 70 /min Zuleika He[facility] Work Phone: 01-13-2017 14:21-0400 Pulse Oximetry 96 % [facility] Work Phone: 01-13-2017 14:21-0400 Respiratory Rate 16 /min [facility] Work Phone: 01-13-2017 14:21-0400 Weight 79.2 kg uZleika [facility] Work Phone: 10-09-2015 11:00-0500 BSA (Body Surface Area) 1.91 m2 [facility] Work Phone: 08-29-2015 11:19-0500 Heart rate 109 /min [facility] Work Phone: Encounters Encounter Date Encounter Type Care Provider Facility Start: 03-25-2025 Dr. Melba Harmtann MD - [facility] Work Phone: Start: 03-24-2025 Dr. Melba Hartmann MD - [facility] Work Phone: Start: 03-23-2025 Dr. Melba Hartmann MD - [facility] Work Phone: Start: 03-22-2025 Dr. Melba Hartmann MD - [facility] Work Phone: Start: 03-21-2025 ambulatory Abigail Foster Facility :[facility] Start: 03-21-2025 End: 03-25-2025 Evaluation and management of inpatient Dr. Ramone Smiley MD Work Phone: -Medical Surgical 3 Start: 03-21-2025 End: 03-25-2025 Dr. Abigail Foster MD -[facility] Surgical 3 Work Phone: Start: 03-09-2025 Whitney Cao FRONT END DEVELOPER DESIGNER-C -[facility] Work Phone: Start: 03-09-2025 ambulatory Whitney Cao FRONT END DEVELOPER DESIGNER Facili ty:[facility] Start: 03-07-2025 ambulatory Whitney Cao FRONT END DEVELOPER DESIGNER Facili ty:[facility] Start: 03-07-2025 Dr. Se Good MD -[facility] Start: 03-07-2025 End: 03-07-[address] Ramone Smiley MD Work Phone: -Cardiovascular Services Start: 03-07-2025 End: 03-07-2025 Whitney Cao FRONT END DEVELOPER DESIGNER-C -Cardiovascular Services Work Phone: Start: 03-07-2025 End: 03-07-2025 ambulatory Whitney Cao NP Facility:[facility] Start: 03-04-2025 End: 03-04-2025 Dr. Ramone Smiley MD Work Phone: -Emergency Department Work Phone: Start: 03-04-2025 End: 03-04-2025 Emergency department patient visit Dr. Ramone Smiley MD Work Phone: -Emergency Department Start: 02-28-2025 Dr. Asha Anguiano MD -[facility] Work Phone: Start: 02-18-2025 End: 02-19-2025 Dr. Ramone Smiley MD Work Phone: -Emergency Department Work Phone: Start: 02-18-2025 End: 02-19-2025 Emergency department patient visit Dr. Ramone Smiley MD Work Phone: [facility] Work Phone: Start: 02-17-2025 Dr. Heydi Amaya MD -[facility] Work Phone: Start: 02-16-2025 Dr. Heydi Amaya MD -[facility] Work Phone: Start: 02-15-2025 End: 02-17-2025 ambulatory Nestor Bartlett Facility:[facility] Start: 02-15-2025 End: 02-17-[address] Ramone Smiley MD Work Phone: [facility] Work Phone: Start: 02-15-2025 End: 02-17-2025 Dr. Nestor Bartlett DO -[facility] Surgical 3 Work Phone: Start: 02-13-2025 Dr. Lucio Borden [facility] Work Phone: Start: 02-12-2025 Dr. Lucio Borden [facility] Work Phone: Start: 02-11-2025 Dr. Lucio Borden [facility] Work Phone: Start: 02-10-2025 Dr. Lucio Borden [facility] Work Phone: Start: 02-09-2025 ambulatory Lucio Borden Facilit y:[facility] Start: 02-09-2025 End: 02-13-2025 Evaluation and management of inpatient Dr. Ramone Smiley MD Work Phone: [facility] Work Phone: Start: 02-09-2025 End: 02-13-2025 Tono Gomez [facility] Work Phone: Start: 02-07-2025 End: 02-07-[address] Ramone Smiley MD Work Phone: [facility] Work Phone: Start: 02-07-2025 End: 02-07-2025 Dr. Ramone Smiley MD -Laboratory [facility] Start: 02-07-2025 End: 02-07-2025 ambulatory Ramone Smiley Facility:[facility] Start: 02-06-2025 Dr. Lucio Borden DO [facility] Work Phone: Start: 02-05-2025 Dr. Lucio Borden [facility] Work Phone: Start: 02-04-2025 Dr. Lucio Borden [facility] Work Phone: Start: 02-04-2025 ambulatory Ramone Smiley Facility:[facility] Start: 02-04-2025 End: 02-06-2025 Evaluation and management of inpatient Dr. Ramone Smiley MD Work Phone: [facility] Work Phone: Start: 02-04-2025 End: 02-06-2025 Dr. Lucio Borden DO -[facility] Care [facility] Work Phone: Start: 01-31-2025 End: 01-31-2025 Whitney SUGGS -[facility] Work Phone: Start: 01-31-2025 End: 01-31-[address] Ramone Smiley MD Work Phone: [facility] Work Phone: Start: 01-26-2025 End: 01-26-2025 Dr. Ramone Smiley MD Work Phone: -Emergency Department Work Phone: Start: 01-26-2025 End: 01-26-2025 Emergency department patient visit Dr. Ramone Smiley MD Work Phone: [facility] Work Phone: Start: 01-24-2025 Dr. Melba Hartmann MD - [facility] Work Phone: Start: 01-23-2025 Dr. Becca Silverman MD -[facility] Start: 01-23-2025 Dr. Melba Hartmann MD - [facility] Work Phone: Start: 01-22-2025 Dr. Melba Hartmann MD - [facility] Work Phone: Start: 01-21-2025 Dr. Melba Hartmann MD - [facility] Work Phone: Start: 01-20-2025 ambulatory Ramone Smiley Facility:[facility] Start: 01-20-2025 Dr. Marcelina Soto MD -[facility] Start: 01-20-2025 ambulatory Sandeep Carlton Facili ty:[facility] Start: 01-20-2025 End: 01-24-2025 Evaluation and management of inpatient Dr. Ramone Smiley MD Work Phone: [facility] Work Phone: Start: 01-20-2025 End: 01-24-2025 Dr. Melba Hartmann MD -Progressive Care Unit Work Phone: Start: 01-19-2025 End: 01-19-[address] Ramone Smiley MD Work Phone: [facility] Work Phone: Start: 01-19-2025 End: 01-19-2025 Dr. Ramone Smiley MD -Laboratory [facility] Start: 01-19-2025 End: 01-19-2025 ambulatory Ramone Smiley Facility:[facility] Start: 01-15-2025 End: 01-15-2025 [facility] Start: 01-15-2025 End: 01-15-2025 Emergency department patient visit Dr. Ramone Smiley MD Work Phone: -Emergency Department Work Phone: Start: 01-07-2025 End: 01-07-2025 Dr. [facility] Work [facility] Start: 01-07-2025 End: 01-07-2025 Emergency department patient visit Dr. Ramone Smiley MD Work Phone: -Emergency Department Work Phone: Start: 11-21-2024 ambulatory Ramone Smiley Facility:[facility] Start: 11-21-[address] Ramone Smiley MD -Physical Therapy Work Phone: Start: 11-21-2024 Dr. Ramone Smiley MD -Phys ical Therapy Work Phone: Start: 09-27-2024 End: 09-27-[address] Ramone Smiley MD -Laboratory, [facility] Start: 09-27-2024 End: 09-27-2024 Dr. Ramone Smiley MD -Laboratory [facility] Start: 09-27-2024 End: 09-27-2024 ambulatory Ramone Smiley Facility:[facility] Start: 07-19-2024 End: 07-19-2024 ambulatory Asha Anguiano Facility:[facility] Start: 06-19-2024 End: 06-20-2024 Emergency department patient visit Billy Kothari Facility:[facility] Start: 05-30-2024 End: 05-30-2024 Emergency department patient visit Kwaku Marcial Facility:[facility] Start: 05-18-2024 End: 05-18-2024 ambulatory Jason BHATTI Facility:[facility] Start: 04-18-2024 End: 04-18-2024 ambulatory Ramone Smiley Facility:[facility] Start: 12-30-2023 Non-patient / Non-visit Dr. Richar Smiley Work Phone: [facility] Work Phone: Start: 12-29-2023 Non-patient / Non-visit Dr. Richar Smiley Work Phone: [facility] Work Phone: Start: 12-28-2023 Non-patient / Non-visit Dr. Richar Smiley Work Phone: [facility] Work Phone: Start: 12-27-2023 End: 12-30-2023 Evaluation and management of inpatient [facility]-Medical Surgical 3 Work Phone: Start: 10-26-2023 End: 10-26-[address] Ramone Smiley Work Phone: [facility] Work Phone: Start: 10-26-2023 End: 10-26-[address] Ramone Smiley Work Phone: [facility] Start: 08-17-2023 Non-patient / Non-visit Dr. Richar Smiley Work Phone: [facility] Work Phone: Start: 08-16-2023 Non-patient / Non-visit Dr. Richar Smiley Work Phone: [facility] Work Phone: Start: 08-15-2023 Non-patient / Non-visit Dr. Richar Smiley Work Phone: [facility] Work Phone: Start: 08-14-2023 Non-patient / Non-visit Dr. Richar Smiley Work Phone: [facility] Work Phone: Start: 08-13-2023 End: 08-17-2023 Evaluation and management of inpatient Dr. Ramone Smiley Work Phone: [facility]-Progressive Care Unit Work Phone: Start: 08-07-2023 End: 08-07-2023 Emergency department patient visit Dr. Ramone Smiley Work Phone: [facility]-Emergency Department Work Phone: Start: 07-18-2023 End: 07-19-2023 Emergency department patient visit Dr. Ramone Smiley Work Phone: [facility]-Emergency Department Work Phone: Start: 07-15-2023 End: 07-15-[address] Ramone Smiley Work Phone: [facility] Work Phone: Start: 06-01-2023 End: 06-01-[address] [facility] Work Phone: Start: 05-27-2023 End: 05-27-[address] Ramone Smiley Work Phone: [facility] Work Phone: Start: 05-15-2023 End: 05-15-[address] Ramone Smiley [facility] [place] Work Phone: Start: 03-24-2023 End: 03-24-2023 ambulatory [facility] Work Phone: Start: 03-24-2023 End: 03-24-2023 Patient encounter procedure [facility] [place], [facility] Work Phone: Start: 02-05-2023 End: 02-05-2023 ambulatory [facility] Work Phone: Start: 02-05-2023 End: 02-05-2023 Patient encounter procedure [facility]-Ultrasound, [facility] Start: 01-28-2023 End: 01-28-2023 Emergency department patient visit [facility]-Emergency Department Start: 01-28-2023 End: 01-28-2023 ambulatory [facility] Work Phone: Start: 01-28-2023 End: 01-28-2023 [facility] Start: 12-09-2022 End: 12-09-2022 ambulatory [facility] Work Phone: Start: 12-09-2022 End: 12-09-2022 Patient encounter procedure [facility] Start: 08-13-2022 End: 08-13-2022 ambulatory [facility] Work Phone: Start: 08-13-2022 End: 08-13-2022 Patient encounter procedure [facility] Start: 07-14-2022 End: 07-14-2022 Emergency department patient visit [facility]gency Department Start: 05-07-2022 End: 05-07-2022 ambulatory 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 APRN.REGISTRY NURSE Work Phone: Hematology/Oncology Comment on above: Iron deficiency anem ia due to chronic blood loss (Primary Dx) Start: 05-07-2022 End: 05-07-2022 Patient encounter procedure 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 APRN.REGISTRY NURSE Work Phone: [facility] Start: 02-27-2022 End: 02-27-[address] Ramone Smiley Work Phone: [facility] Start: 02-26-2022 End: 02-26-[address] Ramone Smiley Work Phone: [facility] Start: 02-10-2022 Telephone encounter Joseph sanders DO Work Phone: Hematology/Oncology Comment on above: Results (CBC and iro n levels) Start: 01-31-2022 Orders Only Joseph Lim Work Phone: Hematology/Oncology Comment on above: Iron deficiency anem ia due to chronic blood loss (Primary Dx) Start: 12-17-2021 End: 12-17-[address] Ramone Smiley Work Phone: [facility] Start: 12-10-2021 End: 12-10-[address] Ramone Smiley Work Phone: [facility] Start: 12-06-2021 End: 12-06-[address] Ramone Smiley Work Phone: [facility] Start: 12-04-2021 End: 12-04-[address] Ramone Smiley Work Phone: [facility] Start: 12-02-2021 End: 12-02-[address] Ramone Smiley Work Phone: [facility]Laboratory, Specimen Start: 12-02-2021 End: 12-02-[address] Ramone Smiley Work Phone: [facility] Start: 09-29-2021 Telephone encounter Joseph sanders DO Work Phone: Hematology/Oncology Comment on above: Results; Follow Up Start: 09-13-2021 End: 09-13-[address] Ramone Smiley Work Phone: [facility]Nuclear Medicine, [facility] Start: 08-21-[address] Ramone Smiley Work Phone: [facility] Start: 08-12-2021 End: 08-12-[address] Ramone Smiley Work Phone: [facility] Start: 03-14-2021 Telephone encounter Joseph sanders DO Work Phone: Hematology/Oncology Comment on above: Results Start: 01-18-2018 [facility] Procedures Date Procedure Procedure Detail Performing Clinician Start: 03-25-2025 Blood count smear rscp w/mnl difrntl wbc count Dr. Ramone Smiley MD Work Phone: Start: 03-25-[address] Ramone Smiley MD Work Phone: Start: 03-25-2025 Mean corpuscular hem oglobin concentration determination Dr. Ramone Smiley MD Work Phone: Start: 03-25-2025 Nucleated red blood cell count procedure Dr. Ramone Smiley MD Work Phone: Start: 03-25-2025 Platelet mean volume determination Dr. Ramone Smiley MD Work Phone: Start: 03-21-2025 Computed tomography of abdomen and pelvis with intravenous contrast Dr. Ramone Smiley MD Work Phone: Start: 03-21-2025 CT of lumbar spine Dr. Ramone Smiley MD Work Phone: Start: 03-21-2025 Blood count smear mc rscp w/mnl difrntl wbc count Dr. Ramone Smiley MD Work Phone: Start: 03-21-[address] Ramone Smiley MD Work Phone: Start: 03-21-2025 Mean corpuscular hem oglobin concentration determination Dr. Ramone Smiley MD Work Phone: Start: 03-21-2025 Nucleated red blood cell count procedure Dr. Ramone Smiley MD Work Phone: Start: 03-21-2025 Platelet mean volume determination Dr. Ramone Smiley MD Work Phone: Start: 03-21-2025 Urine microscopy: red cells Dr. Ramone Smiley MD Work Phone: Start: 03-21-2025 Urnls dip stick/tabl et reagent auto microscopy Dr. Ramone Smiley MD Work Phone: Start: 03-21-[address] Ramone Smiley MD Work Phone: Start: 03-07-2025 Cardiovascular stres s test using [...] red blood cell count procedure Dr. Ramone Smliey MD Work Phone: Start: 01-26-2025 Platelet mean [...] Start: 01-21-2025 Plain chest X-ray Dr. Yoni mSiley MD Work Phone: Start: 01-20-2025 Carbon dioxide [...] Parathyroid SPECT w/ CONCUR CT Dr. Ramone mSiley Work Phone: Start: 08-21-2021 Screening mammography Mirza Smiley Work Phone: Start: 07-01-2020 H/O: surgery H/O dilation a nd curettage Dr. Ramone Smiley Work Phone: Comment on above: polyp removal Start: 01-13-2017 End: 01-13-2017 Documentation of current medications Zuleika Heaton Start: 10-09-2015 End: 04-02-2016 Follow Up Appt 6 months Connor Rausch Start: 10-09-2015 End: 04-02-2016 BRODIE Good MD Start: 08-29-2015 End: 08-29-2015 PASSENGER SERVICE MANAGER Se Good MD Start: 08-29-2015 End: 08-29-2015 Electrocardiogram, complete Se Lara i, MD Start: 08-29-2015 End: 08-29-2015 Follow Up Appt 6 weeks Se Good MD Anaerobic microbial culture Dr. Ramone Smiley Work Phone: Investigation of transfusion reaction Dr. Ramone Smiley Work Phone: Microbial culture, routine D niels Smiley Work Phone: Urine culture Plan of Treatment Date Care Activity Detail Author Start: 03-25-2025 Patient discharge [facility] Start: 03-24-2025 Referral to service [facility] Start: 03-24-2025 [facility] Start: 03-23-2025 [facility] Start: 03-23-2025 [facility] Start: 03-23-2025 [facility] Start: 03-22-2025 Aspiration precautions [facility] Start: 03-22-2025 Speech therapy assessment [facility] Start: 03-22-2025 Following clinical pathway protocol [facility] Start: 03-22-2025 Assessment of risk o f venous thromboembolism [facility] Start: 03-22-2025 Care regimes management [facility] Start: 03-22-2025 Fall prevention [facility] Start: 03-22-2025 Inhalation therapy procedure [facility] Start: 03-22-2025 Insertion of cathete r into peripheral vein [facility] Start: 03-22-2025 Introduction of urin david catheter [facility] Start: 03-22-2025 Measuring intake and output [facility] Start: 03-22-2025 Notification of physician [facility] Start: 03-22-2025 Oxygen therapy [facility] Start: 03-22-2025 Providing care accor ding to standard [facility] Start: 03-22-2025 Provision of activit y privileges [facility] Start: 03-22-2025 Referral to occupati onal therapist [facility] Start: 03-22-2025 Referral to service [facility] Start: 03-22-2025 End: 03-22-2025 [facility] Start: 03-22-2025 Patient referral to dietitian [facility] Start: 03-21-2025 Verification routine [place] Start: 03-21-2025 Admission procedure [facility] Start: 03-21-2025 Hospital admission, emergency, from emergency room, medical nature [facility] Start: 03-21-2025 End: 03-22-2025 [facility] Start: 03-07-2025 Cardiovascular stres s test using pharmacologic stress agent [facility] Start: 03-07-2025 NM Heart Views W str ess and W radionuclide IV [facility] Start: 03-04-2025 [facility] Start: 03-04-2025 End: 03-04-2025 [facility] Start: 03-04-2025 Blood culture [facility] Start: 02-19-2025 [facility] Start: 02-18-2025 [facility] Start: 02-17-2025 Patient discharge [facility] Start: 02-17-2025 [facility] Start: 02-16-2025 End: 02-16-2025 [facility] Start: 02-15-2025 [facility] Start: 02-15-2025 Following clinical pathway protocol [facility] Start: 02-15-2025 Ambulation without limitation [facility] Start: 02-15-2025 Assessment of risk o f venous thromboembolism [facility] Start: 02-15-2025 Care regimes management [facility] Start: 02-15-2025 Insertion of cathete r into peripheral vein [facility] Start: 02-15-2025 Notification of physician [facility] Start: 02-15-2025 Oxygen therapy [facility] Start: 02-15-2025 Providing care accor ding to standard [facility] Start: 02-15-2025 Referral to occupati onal therapist [facility] Start: 02-15-2025 Referral to service [facility] Start: 02-15-2025 [facility] Start: 02-15-2025 Verification routine [place] Start: 02-15-2025 Admission procedure [facility] Start: 02-15-2025 Hospital admission, emergency, from emergency room, medical nature [facility] Start: 02-15-2025 [facility] Start: 02-15-2025 End: 02-15-2025 [facility] Start: 02-15-2025 Inhalation therapy procedure [facility] Start: 02-13-2025 Patient discharge [facility] Start: 02-11-2025 Inhalation therapy procedure [facility] Start: 02-10-2025 [facility] Start: 02-10-2025 Referral to service [facility] Start: 02-09-2025 Care regimes management [facility] Start: 02-09-2025 Notification of physician [facility] Start: 02-09-2025 [facility] Start: 02-09-2025 Following clinical pathway protocol [facility] Start: 02-09-2025 Ambulation without limitation [facility] Start: 02-09-2025 Assessment of risk o f venous thromboembolism [facility] Start: 02-09-2025 Catheterization of vein [facility] Start: 02-09-2025 Insertion of cathete r into peripheral vein [facility] Start: 02-09-2025 Oxygen therapy [facility] Start: 02-09-2025 Providing care accor ding to standard [facility] Start: 02-09-2025 Referral to occupati onal therapist [facility] Start: 02-09-2025 Referral to service [facility] Start: 02-09-2025 [facility] Start: 02-09-2025 Verification routine [place] Start: 02-09-2025 Admission procedure [facility] Start: 02-09-2025 Hospital admission, emergency, from emergency room, medical nature [facility] Start: 02-09-2025 [facility] Start: 02-09-2025 Patient referral to dietitian [facility] Start: 02-06-2025 Patient discharge [facility] Start: 02-06-2025 Referral to service [facility] Start: 02-05-2025 [facility] Start: 02-04-2025 End: 02-04-2025 [facility] Start: 02-04-2025 Care regimes management [facility] Start: 02-04-2025 Notification of physician [facility] Start: 02-04-2025 Following clinical pathway protocol [facility] Start: 02-04-2025 Care planning and pr oblem solving actions [facility] Start: 02-04-2025 Ambulation without limitation [facility] Start: 02-04-2025 Assessment of risk o f venous thromboembolism [facility] Start: 02-04-2025 Catheterization of vein [facility] Start: 02-04-2025 Inhalation therapy procedure [facility] Start: 02-04-2025 Insertion of cathete r into peripheral vein [facility] Start: 02-04-2025 Oxygen therapy [facility] Start: 02-04-2025 Providing care accor ding to standard [facility] Start: 02-04-2025 [facility] Start: 02-04-2025 Hospital admission, emergency, from emergency room, medical nature [facility] Start: 02-04-2025 Verification routine [place] Start: 02-04-2025 Admission procedure [facility] Start: 02-04-2025 [facility] Start: 02-04-2025 [facility] Start: 01-26-2025 [facility] Start: 01-24-2025 Referral to service [facility] Start: 01-24-2025 Patient discharge [facility] Start: 01-21-2025 [facility] Start: 01-21-2025 Referral to christmas tree farmer [facility] Start: 01-20-2025 Oxygen therapy [facility] Start: 01-20-2025 Blood culture [facility] Start: 01-20-2025 Notification of physician [facility] Start: 01-20-2025 [facility] Start: 01-20-2025 End: 01-20-2025 [facility] Start: 01-20-2025 Application of intermittent pneumatic compression device [facility] Start: 01-20-2025 Following clinical pathway protocol [facility] Start: 01-20-2025 Cardiac monitoring [facility] Start: 01-20-2025 Catheterization of vein [facility] Start: 01-20-2025 Notification of physician [facility] Start: 01-20-2025 Vital signs measurements [facility] Start: 01-20-2025 Admission procedure [facility] Start: 01-20-2025 End: 01-20-2025 [facility] Start: 01-20-2025 Care regimes management [facility] Start: 01-20-2025 Inhalation therapy procedure [facility] Start: 01-20-2025 Patient referral to dietitian [facility] Start: 01-15-2025 [facility] Start: 01-15-2025 [facility] Start: 01-07-2025 [facility] Start: 12-30-2023 Patient discharge [facility] Start: 12-30-2023 Inhalation therapy procedure [facility] Start: 12-28-2023 Application of intermittent pneumatic compression device [facility] Start: 12-28-2023 Provision of overbed trapeze [facility] Start: 12-28-2023 Recommendation to continue with treatment [facility] Start: 12-28-2023 Ambulation therapy management [facility] Start: 12-28-2023 Application of device [facility] Start: 12-28-2023 Assessment of risk o f venous thromboembolism [facility] Start: 12-28-2023 Catheterization of vein [facility] Start: 12-28-2023 Exercises [facility] Start: 12-28-2023 Following clinical pathway protocol [facility] Start: 12-28-2023 Introduction of urin david catheter [facility] Start: 12-28-2023 Measuring intake and output [facility] Start: 12-28-2023 Neurovascular assessment [facility] Start: 12-28-2023 Patient education [facility] Start: 12-28-2023 Procedure discontinued [facility] Start: 12-28-2023 Provision of activit y privileges [facility] Start: 12-28-2023 Referral to occupati onal therapist [facility] Start: 12-28-2023 Referral to service [facility] Start: 12-28-2023 Vital signs measurements [facility] Start: 12-28-2023 Wound care [facility] Start: 12-28-2023 [facility] Start: 12-28-2023 Blood chemistry [facility] Start: 12-28-2023 Complete blood count [place] Start: 12-28-2023 Following clinical pathway protocol [facility] Start: 12-28-2023 Assessment of risk o f venous thromboembolism [facility] Start: 12-28-2023 Care regimes management [facility] Start: 12-28-2023 Consultation [facility] Start: 12-28-2023 Incentive spirometry [place] Start: 12-28-2023 Insertion of cathete r into peripheral vein [facility] Start: 12-28-2023 Notification of physician [facility] Start: 12-28-2023 Oxygen therapy [facility] Start: 12-28-2023 Providing care accor ding to standard [facility] Start: 12-28-2023 Provision of activit y privileges [facility] Start: 12-28-2023 Referral to occupati onal therapist [facility] Start: 12-28-2023 Referral to service [facility] Start: 12-28-2023 [facility] Start: 12-27-2023 Verification routine [place] Start: 12-27-2023 Admission procedure [facility] Start: 08-17-2023 Referral to service [facility] Start: 08-17-2023 Patient discharge [facility] Start: 08-16-2023 [facility] Start: 08-13-2023 Following clinical pathway protocol [facility] Start: 08-13-2023 Assessment of risk o f venous thromboembolism [facility] Start: 08-13-2023 Care regimes management [facility] Start: 08-13-2023 Insertion of cathete r into peripheral vein [facility] Start: 08-13-2023 Measuring intake and output [facility] Start: 12-14-2023 Notification of physician [facility] Start: 08-13-2023 Providing care accor ding to standard [facility] Start: 08-13-2023 Provision of activit y privileges [facility] Start: 08-13-2023 Referral to occupati onal therapist [facility] Start: 08-13-2023 Referral to service [facility] Start: 08-13-2023 [facility] Start: 08-13-2023 Admission procedure [facility] Start: 08-13-2023 Verification routine [place] Start: 08-13-2023 Bacteria identified in Blood by Culture Blood Culture [facility] Start: 08-13-2023 Bacteria identified in Urine by Culture Urine Culture [facility] Start: 08-13-2023 Hospital admission, emergency, from emergency room, medical nature [facility] Start: 08-13-2023 [facility] Start: 08-13-2023 End: 08-13-2023 Blood culture [facility] Start: 08-13-2023 Inhalation therapy procedure [facility] Start: 08-13-2023 Patient referral to dietitian [facility] Start: 08-07-2023 [facility] Start: 07-19-2023 End: 07-19-2023 [facility] Start: 07-18-2023 Measurement of occul t blood in stool specimen using immunoassay [facility] Start: 07-18-2023 Bacteria identified in Urine by Culture Urine Culture [facility] Start: 05-07-2022 BP CONTROLLED (<130/80) BP CONTROLLE D (<130/80) [facility] Start: 05-01-[address] [facility] Start: 03-28-2022 COVID-19 VACCINE (4 - Booster for Moderna series) COVID-19 VACCINE (4 - Booster for Moderna series) [facility] Start: 09-29-2021 End: 09-29-2022 MONOCLONAL PROTEIN, SERUM (BLOOD) MONOCLONAL PROTEIN, SERUM (BLOOD) Lab Routine Anemia, unspecified type Expected: 09/29/2021, Expires: 09/29/2022 [facility] Work Phone: Comment on above: Expected: 09/29/2021 , Expires: 09/29/2022 Start: 09-29-2021 End: 09-29-2022 PROTEIN ELECTROPHORESIS SERUM W/INTERP PROTEIN ELECTROPHORESIS SERUM W/INTERP Lab Routine Anemia, unspecified type Expected: 09/29/2021, Expires: 09/29/2022 [facility] Work Phone: Comment on above: Expected: 09/29/2021 , Expires: 09/29/2022 Start: 08-31-2021 ADVANCE DIRECTIVE DISCUSSION ADVANCE DIRECTIVE DISCUSSION [facility] Start: 05-16-2021 COVID-19 VACCINE (3 - Booster for Moderna series) COVID-19 VACCINE (3 - Booster for Moderna series) [facility] Start: 05-04-2018 Urine microalbumin profile DTAP,TDAP,TD (2 - Td or Tdap) [facility] Start: 08-16-2016 3 comp foot exam completed DIABETIC FOOT EXAM [facility] Start: 10-09-2015 End: 04-02-2016 Follow Up Appt 6 months Follow Up Appt 6 months [facility] Work Phone: Start: 10-09-2015 End: 04-02-2016 MMM MMM [facility] Work Phone: Start: 08-29-2015 End: 08-29-2015 PASSENGER SERVICE MANAGER PASSENGER SERVICE MANAGER [facility] Work Phone: Start: 08-29-2015 End: 08-29-2015 Electrocardiogram, complete EKG (In office) [facility] Work Phone: Start: 08-29-2015 End: 08-29-2015 Follow Up Appt 6 weeks Follow Up Appt 6 weeks [facility] Work Phone: Start: 07-01-2014 Hemoglobin A1c/Hemoglobin.total in Blood HBA1C [facility] Start: 06-25-2014 Hepatitis B surface antibody level LDL CHOLESTEROL [facility] Start: 06-17-2014 Hepatitis C antibody , confirmatory test DILATED RETINAL EXAM [facility] Start: 02-12-2013 PNEUMOCOCCAL: 65+ (2 - PCV) PNEUMOCOCCAL: 65+ (2 - PCV) [facility] Start: 02-12-2013 PNEUMOCOCCAL: 65+ (3 - PCV) PNEUMOCOCCAL: 65+ (3 - PCV) [facility] Start: 02-18-2012 SHINGRIX VACCINE (1 of 2) JIMENEZ GRIX VACCINE (1 of 2) [facility] Start: 02-18-2012 SHINGRIX VACCINE (2 of 3) JIMENEZ GRIX VACCINE (2 of 3) [facility] Start: 01-02-1962 ANNUAL PCP TEAM SHUTTLE HAND ERIS DISEASE VISIT ANNUAL PCP TEAM CHRONIC DISEASE VISIT [facility] Start: 01-02-1962 BP CONTROLLED (<130/80) BP CONTROLLE D (<130/80) [facility] Start: 01-02-1962 HEPATITIS C SCREENING HEPATITIS C SC REENING [facility] Start: 1956 Adult depression screening assessment DEPRESSION SCREENING [facility] Anion gap measurement [facility] Bacteria identified in Sputum by Respiratory culture [facility] BUN/Creatinine ratio [facility] Calcium [Mass/volume ] in Serum or Plasma [facility] Carbon dioxide, tota l [Moles/volume] in Serum or Plasma [facility] End: 01-31-2023 CBC W Auto Differential panel - Blood CBC + DIFF Lab STAT Iron deficiency anemia due to chronic blood loss Every 3 months for 4 Occurrences starting 01/31/2022 until 01/31/2023 [facility] Work Phone: Comment on above: Every 3 months for 4 Occurrences starting 01/31/2022 until 01/31/2023 End: 09-29-2022 CBC W Auto Differential panel - Blood CBC + DIFF Lab Routine Anemia, unspecified type 1 Occurrences starting 09/29/2021 until 09/29/2022 [facility] Work Phone: Comment on above: 1 Occurrences starti ng 09/29/2021 until 09/29/2022 Chloride [Moles/volu me] in Serum or Plasma [facility] End: 09-29-2022 Comprehensive metabolic 2000 panel - Serum or Plasma COMP METABOLIC PANEL Lab Routine Anemia, unspecified type 1 Occurrences starting 09/29/2021 until 09/29/2022 [facility] Work Phone: Comment on above: 1 Occurrences starti ng 09/29/2021 until 09/29/2022 Creatinine [Moles/vo lume] in Serum or Plasma [facility] Erythrocyte mean corpuscular volume determination [facility] End: 01-31-2023 FERRITIN BLD FERRITIN BLD Lab Routine Iron deficiency anemia due to chronic blood loss Every 3 months for 4 Occurrences starting 01/31/2022 until 01/31/2023 [facility] Work Phone: Comment on above: Every 3 months for 4 Occurrences starting 01/31/2022 until 01/31/2023 Glucose [Mass/volume ] in Serum or Plasma [facility] Hematocrit [Volume Fraction] of Blood [facility] Hemoglobin [Mass/vol ume] in Blood [facility] Hemoglobin A1c/Hemoglobin.total in Blood [facility] End: 01-31-2023 IRON + TIBC IRON + TIBC Lab Routine Iron deficiency anemia due to chronic blood loss Every 3 months for 4 Occurrences starting 01/31/2022 until 01/31/2023 [facility] Work Phone: Comment on above: Every 3 months for 4 Occurrences starting 01/31/2022 until 01/31/2023 Leukocytes [#/volume ] in Blood [facility] Mean corpuscular hemoglobin concentration determination [facility] Mean corpuscular hemoglobin determination [facility] Measurement of renal function [facility] Microorganism identi fied in Unspecified specimen by Culture [facility] Microscopic observat ion [Identifier] in Unspecified specimen by Gram stain [facility] NM Heart Views W str ess and W radionuclide IV [facility] Patient Education [facility] Work Phone: Patient referral [facility] Work Phone: Platelets [#/volume] in Blood [facility] Potassium [Moles/vol ume] in Serum or Plasma [facility] Procalcitonin [Mass/volume] in Serum or Plasma by Immunoassay [facility] Red blood cell count [facility] Red cell distributio n width determination [facility] Sodium [Moles/volume ] in Serum or Plasma [facility] Troponin T.cardiac [Mass/volume] in Serum or Plasma by High sensitivity method [facility] Troponin T.cardiac [Mass/volume] in Serum or Plasma by High sensitivity method [facility] Urea nitrogen [Mass/volume] in Serum or Plasma [facility] Urine culture [facility] Urine culture [facility] Immunizations Immunization Date Immunization Notes Care Provider Larissa cuadra 07-03-2022 influenza, injectabl e, quadrivalent, preservative free Dr. Ramone Smiley MD Work Phone: [facility] 11-26-2021 Covid (Moderna) Dr. Ramone leon MD Work Phone: [facility] 08-22-2015 pneumococcal conjuga te vaccine, [address] Ramone Smiley MD Work Phone: [facility] 07-12-2012 influenza virus vacc ine, unspecified formulation Joseph Rolle DO Work Phone: [facility] 02-13-2012 pneumococcal polysaccharide vaccine, 23 valent Joseph Rolle DO Work Phone: [facility] 12-24-2011 zoster vaccine, live Joseph Chen chatterjee DO Work Phone: [facility] 06-02-2011 influenza virus vacc ine, unspecified formulation Joseph Rolle DO Work Phone: [facility] 08-09-2010 influenza virus vacc ine, unspecified formulation Joseph Aquilino DO Work Phone: [facility] 05-30-2009 influenza virus vacc ine, unspecified formulation Joseph Viktoriai DO Work Phone: [facility] 09-07-2008 influenza virus vacc ine, unspecified formulation Joseph Rolle DO Work Phone: [facility] Work Phone: 05-04-2008 tetanus toxoid, redu octavio diphtheria toxoid, and acellular pertussis vaccine, adsorbed Joseph Rolle DO Work Phone: [facility] Work Phone: 06-28-2007 influenza virus vacc ine, unspecified formulation Joseph Blumi DO Work Phone: [facility] Work Phone: 08-31-2005 pneumococcal polysaccharide vaccine, 23 valent Joseph Rolle DO Work Phone: [facility] Work Phone: Payers Date Payer Category Payer Self-pay [id number] 2017 Medicare HU[employer]NA MEDICARE HU[employer]NA MEDICARE PPO [id number] 2017-Present [phone] [address] [place] [address] PPO [id number] 2017 Medicare HUMANA MEDICARE HU[employer]NA MEDICARE PPO [id number] 2017-Present [phone] [address] [place] [address] PPO [id number] 2016 Medicare [id number] Private Health Insurance Unknown [id number] 2.16.840.1.740380.3.579. 2.462 Unknown [id number] 2.16840.1.922110.3.579. 2.462 Unknown [id number] 2.16840.1.831193.3.579. 2.462 Unknown [id number] 2.16.840.1.345613.3.579. 2.462 Unknown [id number] 2.16840.1.011178.3.579. 2.462 Unknown [id number] 2.16.840.1.637160.3.579. 2.462 Unknown [id number] 2.16.840.1.990043.3.579. 2.462 Unknown [id number] 2.16.840.1.207726.3.579. 2.462 Unknown [id number] 2.16.840.1.487628.3.579. 2.462 Unknown [id number] 2.16840.1.856404.3.579. 2.462 Unknown [id number] 2.840.1.118335.3.579. 2.462 Unknown [id number] 2.840.1.321999.3.579. 2.462 Unknown [id number] 2.840.1.318908.3.579. 2.462 Unknown [id number] 2.840.1.168286.3.579. 2.462 Unknown [id number] 2.840.1.191230.3.579. 2.462 Unknown [id number] 2.840.1.333869.3.579. 2.462 Unknown [id number] 2.840.1.406393.3.579. 2.462 Unknown [id number] 2.840.1.945164.3.579. 2.462 Unknown [id number] 2.840.1.586559.3.579. 2.462 Unknown [id number] 2.840.1.205128.3.579. 2.462 Unknown [id number] 2.840.1.177453.3.579. 2.462 Unknown [id number] .840.1.069541.3.579. 2.462 Unknown [id number] .840.1.679040.3.579. 2.462 Unknown [id number] .840.1.034999.3.579. 2.462 Unknown [id number] .840.1.595179.3.579. 2.462 Unknown [id number] 2.840.1.276920.3.579. 2.462 Unknown [id number] 2.840.1.727039.3.579. 2.462 Unknown [id number] 2.840.1.995852.3.579. 2.462 Unknown [id number] 2.16.840.1.959645.3.579. 2.462 Unknown [id number] 2.840.1.256566.3.579. 2.462 Unknown [id number] 2.16.840.1.320678.3.579. 2.462 Unknown [id number] 2.840.1.466302.3.579. 2.462 Unknown [id number] 2.840.1.204121.3.579. 2.462 Unknown [id number] 2.840.1.409249.3.579. 2.462 Unknown [id number] 2.840.1.874943.3.579. 2.462 Unknown [id number] 2.840.1.821061.3.579. 2.462 Unknown [id number] 2.840.1.872412.3.579. 2.462 Unknown [id number] 2.840.1.796638.3.579. 2.462 Unknown [id number] 2.840.1.467866.3.579. 2.462 Unknown [id number] 2.840.1.434877.3.579. 2.462 Unknown [id number] 2.840.1.756342.3.579. 2.462 Unknown [id number] 2.840.1.780365.3.579. 2.462 Unknown [id number] 2.840.1.603672.3.579. 2.462 Unknown [id number] .840.1.930077.3.579. 2.462 Unknown [id number] 2.840.1.631806.3.579. 2.462 Unknown [id number] 2.840.1.292541.3.579. 2.462 Social History Date Type Detail Facility Start: 12-06-2021 End: 08-13-2023 Tobacco smoking status RUST Unknown if ever smoked [facility] Start: 12-02-2019 None [facility] Start: 12-02-2019 Spouse/ Signif icant Other [facility] Start: 07-06-2020 Non-smoker [facility] Start: 1945 Sex Assigned At Female W [facility] Start: 02-03-2012 End: 03-22-2025 Tobacco smoking status NHIS Ex-smoker [facility] End: 01-30-2012 History of tobacco use Current smoker [facility] End: 01-30-2012 History of tobacco use Cigarette Smoker [facility] Start: 02-03-2012 End: 03-22-2012 Cigarettes smoked current (pack per day) - Reported 0.5 [facility] Start: 02-03-2012 End: 03-22-2012 Tobacco use and exposure Smokeless tobacco non-user [facility] Start: 05-07-2021 End: 05-07-2022 Alcohol intake Current non-drinker of alcohol (finding) [facility] Start: 1945 Sex Assigned At Not on file [facility] Start: 10-05-2021 End: 11-04-2021 Exposure to SARS-CoV-2 (event) Not sure [facility] NEGATED: Highlighted row [facility] Medical Equipment Procedure Code Equipment Code Equipment Origin al Text Equipment Identifier Dates 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 Start: 12-28-2023 Primary uncemented hemiarthroplasty of hip unitrax neck adjustment sleeve FDA Start: 12-28-2023 Primary uncemented hemiarthroplasty of hip ([id number]) [id number] FDA Start: 12-28-2023 Primary uncemented hemiarthroplasty of [...] /State Functional Status Date Assessment Result Facility 03-25-2025 Functional status Ambulates;Gume r;Bathroom Privilege [facility] Work Phone: 02-17-2025 Functional status Chair [facility] Work Phone: 02-16-2025 Functional status Well [facility] Work Phone: 02-13-2025 Functional status Chair [facility] Work Phone: 02-06-2025 Functional status Chair [facility] Work Phone: 01-24-2025 Functional status Ambulates [facility] Work Phone: 01-23-2025 Functional status Fair [facility] Work Phone: 12-30-2023 Functional status Bedrest [facility] Work Phone: 08-17-2023 Functional status Ambulates [facility] Work Phone: Mental Status Date Assessment Result Facility 03-25-2025 Cognitive function Voice/Name [facility] Work Phone: 02-17-2025 Cognitive function Voice/Name [facility] Work Phone: 02-13-2025 Cognitive function Voice/Name [facility] Work Phone: 02-06-2025 Cognitive function Voice/Name [facility] Work Phone: 01-24-2025 Cognitive function Voice/Name [facility] Work Phone: 12-30-2023 Cognitive function Voice/Name [facility] Work Phone: 08-17-2023 Cognitive function Voice/Name [facility] Work Phone: 08-13-2023 Cognitive function Level Of Cons ciousness Awake;Alert;Appropriate;Follow s Commands [facility] Work Phone: 01-28-2023 Cognitive function Level Of Cons ciousness Awake;Alert;Appropriate;Follow s Commands [facility] Work Phone: Clinical Notes 03-14-2021 to 03-25-2025 Note Date & Type Note Facility 03-25-2025 Discharge summary Note Date/Time March 25, 2025 2:37pm [facility] Medical Records Department [address] [place] [address] Discharge Summary 03/25/25 1133 MR#: [id number] Acct: [id number] Name: OLGA DONALDSON Rep #:[id number] : 1945 80 From: Melba Hartmann MD PCP: Dr. Ramone Smiley MD Status:ADM [place] [facility] [id number] Providers Date of Admission: 03/21/25 Date of Discharge: 03/25/25 Primary Care Physician: Dr. Ramone Smiley MD Reason For Visit: INTRACTABLE BACK PAIN, UTI Diagnosis Discharge Diagnosis (1) Acute UTI: Status: Acute Code(s): N39.0 - Urinary tract infection, site not specified (2) COPD exacerbation: Status: Chronic Code(s): J44.1 - Chronic obstructive pulmonary disease with (acute) exacerbation Plan #Acute intractable pain with debility and failure to thrive * PT/OT on board. Fall precautions. * PO tylenol, tizanidine and IV toradol prn. * #Acute UTI * has a chronic neurogenic bladder and self catheterizes. * most recent cultures positive for Enterococcus so patient on IV levaquin * urine cultures growing gram positive cocci, speciation is pending. Will continue IV levaquin pending speciation. #Probable atelectasis * CT chest showed atypical patchy airspace in bilateral posterior medial lung bases more pronounced on the left. This was similar to previous Chest CT * speech therapy on board * aspiration precautions. * #Hypotension: BP down in the 90s systolic today. She is currently asymptomatic. Will hold Entresto and blood pressure medications. Give a bolus of 500 cc normal saline. #Chronic heart failure with reduced ejection fraction: Hold Lasix and Entresto as well as atenolol due to hypotension. She has known EF of 35 to 40%. #Hyperkalemia:resolved with kayexalate. K is 4.8 today. #Chronic hypoxic respiratory failure due to COPD and asthma * on 2L of oxygen by nasal canula * on roflumilast. * breathing treatment with bronchodilators. * # History of left-sided breast cancer: S/p lumpectomy in 2003 #Type 2 diabetes mellitus with neuropathy: On Lantus as well as sitagliptin empagliflozin the last tirzepatide. Insulin sliding scale. Accu-Cheks ACHS. #Benign essential hypertension: On carvedilol. IV hydralazine as needed #History of multinodular goiter: Stable #Glaucoma: On netarsudil latanoprost eyedrops DVT prophylaxis: heparin. Medications at Discharge Home Medications aspirin 81 mg chewable tablet 81 mg PO DAILY [facility] 01/21/16 magnesium oxide 400 mg (241.3 mg magnesium) tablet 400 mg PO BID SUPPLEMENT 08/16/18 pantoprazole 40 mg tablet,delayed release 40 [...] Aerosphere) 2 inh inhalation BID breathing 01/07/25 insulin glargine 100 unit/mL (3 mL) [...] (K-Tab) 20 meq PO BID supplement 02/04/25 ipratropium 0.5 mg-albuterol 3 mg (2.5 mg base)/3 mL nebulization soln 3 ml inhalation Q6H.RT sob #120 amps 02/06/25 albuterol sulfate 90 mcg/actuation aerosol inhaler 2 puff inhalation Q6H PRN shortness of breath or wheezing 02/09/25 cetirizine 10 mg tablet 10 mg PO DAILY allergy 02/09/25 hydroxyzine HCl 25 mg tablet 12.5 mg PO QHS allergies 02/09/25 gabapentin 100 mg capsule 100 mg PO QHS NERVE PAIN 3 days #3 caps 02/17/25 guaifenesin 600 mg tablet, extended release 12 hr (Mucinex) 600 mg PO BID cough #0 tabs 02/17/25 diazepam 2 mg tablet 2 mg PO BID PRN muscle spasm #10 TABLETS 03/21/25 doxycycline hyclate 100 mg tablet 100 mg PO BID #14 tabs 03/25/25 furosemide 20 mg tablet (Lasix) 20 mg PO DAILY #30 tabs 03/25/25 metoprolol tartrate 25 mg tablet 12.5 mg (1/2 x 25 mg) PO BID #30 tabs 03/25/25 sacubitril 24 mg-valsartan 26 mg tablet (Entresto) 1 tab PO BID #60 tabs 03/25/25 Hospital Course Operations None Procedures None Summary of Care Provided Minutes Spent on Discharge: 45 Hospital Course: Patient is an 80-year-old female with a past medical history as outlined who wasadmitted to the ED on 03/21/2025 with a complaint of right-sided back spasms which have been persistent for about 2 weeks with associated chronic constipation. She also self catheterizes at home due to neurogenic bladder. She came into the ED as her symptoms were not improving. Urinalysis showed evidence of UTI. CT of the abdomen and pelvis showed patchy airspace consolidation concerning for possible aspiration and moderate colonic stool burden. She was admitted and managed for acute intractable pain with debility and failure to thrive as well as acute UTI. She was started on IV Levaquin due to most recent urine cultures growing Enterococcus. PT OT was also consulted. Her chest CT findings were thought to likely be due to atelectasis and was similar to previous CTs. Her urine culture grew Staph epidermidis which was sensitive to doxycycline. She did work with physical therapy during this admission.. She was discharged home on 03/25/2025 with a prescription for p.o. doxycycline for 5-day course. Of note patient's hospital course was complicatedby hypotension. Her medications were therefore adjusted with her Lasix being cut down to 20 mg daily. She was continued on her Entresto. Her Cardizem was discontinued and her metoprolol cut down from 25 mg twice daily to 12.5 mg twicedaily. 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 Patient seen and examined prior to discharge. She felt well and had no complaints. She had an uneventful night. Review of systems otherwise negative. Labs and vitals reviewed. Home medication reviewed and reconciled. Physical Exam Const alert, oriented x3 and no apparent distress General Appearance: cooperative, comfortable, well kempt and well developed HEENT normocephalic, head/scalp atraumatic, hearing grossly normal bilaterally, moist oral mucous membranes and oropharynx normal Mouth: oral and palatal mucosa normal Eyes PERRL and EOMs intact bilaterally Neck no lymphadenopathy and supple Lymph Lymphatic: no lymphedema noted Resp Resp Narrative: milldy diminished breath sounds bibasally, no wheezes or crackles. Remains on 2Lof oxygen by nasal canula. Cardio regular rate, regular rhythm, S1 normal heart sound, S2 normal heart sound and no murmurs GI normal to inspection, nondistended, normoactive bowel sounds, soft to palpation,non-tender and non-distended Extremity normal to inspection, full ROM, normal capillary refill, no clubbing, cyanosis or edema and no calf tenderness General Extremity: no tenderness to palpation of joints or extremities Skin no rashes or lesions noted General Skin Exam: no breakdown Neuro oriented x3, CN's II-XII intact bilaterally, moves all extremities, no focal motor deficits and no sensory deficits noted Motor Exam: strength 5/5 throughout and general weakness Psych thought process normal, cooperative and affect normal Appearance: appropriate Medical Records Data Medical Nutrition Assessment Dietitian: Malnutrition Criteria Met Start: 03/22/25 12:40 Freq: Status: Active Protocol: Document 03/22/25 12:41 RMA (Rec: 03/22/25 12:41 RMA [id number]) Nutrition Malnutrition Evidence of Yes Malnutrition Exists Malnutrition (severe Chronic ): Evidenced By Suboptimal Energy Intake (Severe),Weight Loss (Severe) Clinical Problem Chronic Disease or Condition Related Malnutrition Etiology severe protein-calorie malnutrition in the context of chronic disease and debility related to inadequate oral intake and increased energy expenditure Signs/Symptoms as evidenced by ~6% unintentional weight loss x past 1 month, PO meeting less than 75% estimated nutrition needs Status Active Problem Recommendation Dietitian Will adjust diet to 2000 calorie; consistent Recommendations/ carbohydrate. Changes Will continue 120mL glucerna shake 3 times per day with medpas. Will add extra 1-2 oz meat/protein Q meal as tolerated. Will trend weights closely as available. Weight / BMI Weight Weight: 171 lb 11.841 oz Body Mass Index (BMI) 30.4 ABG / Lab / Microbiology Data 03/25/25 06:25 03/25/25 06:25 Laboratory: Laboratory Results - last 24 hr 03/24/25 17:01: POC Glucose 311 H 03/24/25 21:10: POC Glucose 294 H 03/25/25 06:25: WBC 7.8, RBC 3.31 L, Hgb 9.0 L, Hct 29.7 L, MCV 89.7, MCH 27.2, MCHC 30.3 L, RDW Std Deviation 53.7 H, RDW Coeff of Vijay 16.3 H, Plt Count 251, MPV 10.8, Immature Gran % (Auto) 0.800, Neut % (Auto) 61.3, Lymph % (Auto) 26.3,[place] % (Auto) 10.4 H, Eos % (Auto) 0.8, Baso % (Auto) 0.4, Absolute Neuts (auto)4.8, Absolute Lymphs (auto) 2.04, Nucleated RBC % 0.3, Sodium 139, Potassium 4.8, Chloride 101, Carbon Dioxide 26.0, Anion Gap 12, BUN 25 H, Creatinine 1.14,Estim Creat Clear Calc 38.25 L, Est GFR (MDRD) Non-Af 48 L, BUN/Creatinine Ratio22.1 H, Glucose 123 H, Calcium 10.6 03/25/25 06:41: POC Glucose 124 H 03/25/25 08:23: POC Glucose 164 H 03/25/25 12:18: POC Glucose 193 H Microbiology: Microbiology 03/21/25 15:05 Urine Catheter - Catheter Urine Culture - Final Staphylococcus epidermidis D/C Instructions Discharge Activity: Return to Normal Activity Weight Bearing Status: Weight bearing as tolerated Call your doctor if you observe: Fever of 101 or Higher, Shortness of breath andSwelling in the ankles DC O2, CPAP, BIPAP Needs Home O2 Discharge instructions: Yes Type of respiratory needs?: Oxygen Oxygen frequency: Continuous Continuous oxygen liters per minute: 2 DC home with Oxygen: Yes Home O2 MD Review: I have reviewed the oxygen testing, and the patient qualifies for home oxygen equipment and portability. The patient is mobile in the home and the community. Meaningful Use Info Meaningful Use Meaningful Use Diagnoses (Choose all that apply): None applicable Discharge Plan Admission Admit Date/Time: 03/21/25 23:03 Primary Reason for Your Visit: UTI Attending Provider: Melba Hartmann Primary Care Provider: Ramone Smiley Consulting Providers: Abigail Foster Instructions Patient Instructions: Urinary Tract Infections in Women, ED Back Spasm, No Trauma Additional Instructions / Restrictions: cardizem stopped. Metoprolol cut down to 12.5mg bid. Lasix reduced to 20mg dailydue to to hypotension Discharge Orders/Prescriptions Prescriptions: New diazepam 2 mg tablet 2 mg PO BID PRN (Reason: muscle spasm) Qty: 10 0RF furosemide [Lasix] 20 mg tablet 20 mg PO DAILY Qty: 30 2RF metoprolol tartrate 25 mg tablet 12.5 mg PO BID Qty: 30 2RF Entresto 24-26 mg Tablet 1 tab PO BID Qty: 60 2RF doxycycline hyclate 100 mg tablet 100 mg PO BID Qty: 14 0RF Continued Januvia 50 mg tablet 50 mg PO DAILY Jardiance 10 mg tablet 10 mg PO DAILY multivitamin Tablet 1 tab PO DAILY pravastatin 20 mg tablet 20 mg PO DAILY aspirin 81 MG tablet,chewable 81 mg PO DAILY magnesium oxide 400 MG tablet 400 mg [...] 5 mg subcut QWEEK Patient Comments: PT STATes she takes on mondays menthol-zinc oxide [CalaSoothe] 0.44-20.6 % ointment 1 [...] 3 ml inhalation Q6H.RT Qty: 120 0RF albuterol sulfate 90 mcg/actuation HFA aerosol inhaler 2 puff inhalation Q6H PRN (Reason: shortness of breath or wheezing) cetirizine 10 mg tablet 10 mg PO DAILY hydroxyzine HCl 25 mg tablet 12.5 mg PO QHS guaifenesin [Mucinex] 600 mg Tablet Extended Release 12hr 600 mg PO BID Qty: 0 0RF gabapentin 100 mg capsule 100 mg PO QHS 3 Days Qty: 3 0RF ipratropium bromide 21 mcg (0.03 %) spray,non-aerosol 1 - 2 spray INTRANASAL Q6H PRN (Reason: allergy symptoms) insulin glargine [Lantus Solostar U-100 Insulin] 100 unit/mL (3 mL) insulin pen 20 unit subcut BID (DME) lancets [TRUEplus Lancets] 28 gauge misc MISCELLANEOUS Breztri Aerosphere 160-9-4.8 mcg/actuation HFA aerosol inhaler 2 inh inhalation BID Discontinued metoprolol tartrate 25 MG tablet 25 mg PO BID furosemide [Lasix] 20 mg tablet 60 mg PO BID Qty: 180 0RF diltiazem HCl 180 mg capsule,ext.rel 24h degradable 180 mg PO DAILY Entresto 24-26 mg tablet 1 tab PO BID Qty: 60 11RF Referrals / Follow Up: Ramone Smiley MD [Primary Care Provider] - Within 1 Week Disposition Disposition (needs filled in before D/C Order can be placed): Home Health Service Charges/Coding Visit Charges Inpatient E&M: 77474 Disch Hosp >30min 03/25/25 1437 <Electronically signed by Melba Hartmann MD> Cosigner Signature (if applicable): CC: Dr. Ramone Smiley MD; Dr. Melba Hartmann MD~ Signed [facility] Work Phone: 1(531) 983-527407-26-2025 Hospital Discharge instructionsAdditional Instructions cardizem stopped. Metoprolol cut down to 12.5mg bid. Lasix reduced to 20mg daily due to to hypotension [facility]: [facility] 1(954) 102-101807-26-2025 Discharge summary Author [facility] Note Date/Time March 25, 2025 11:3 3am [facility] Medical Records Department [address] [place] [address] Instructions for Home/Discharge Instructions 03/25/25 1126 MR#: [id number] Acct: [id number] Name: OLGA DONALDSON Rep #:[id number] : 1945 80 From: Melba Hartmann MD PCP: Dr. Ramone Smiley MD Status:ADM IN Discharge Instructions DC O2, CPAP, BIPAP needs Home O2 Discharge instructions: Yes Type of respiratory needs?: Oxygen Oxygen frequency: Continuous Continuous oxygen liters per minute: 2 Dressing / Incision Discharge Activity: Return to Normal Activity Weight Bearing Status: Weight bearing as tolerated Dressing / Incision Call your doctor if you observe: Fever of 101 or Higher, Shortness of breath andSwelling in the ankles Follow Up Care Test Results: Test results from this visit will be discussed in further detail at your follow- up appointment, if applicable. Discharge Plan Admission Admit Date/Time: 03/21/25 23:03 Primary Reason for Your Visit: UTI Attending Provider: Melba Hartmann Primary Care Provider: Ramone Smiley Consulting Providers: Abigail Foster Instructions Patient Instructions: Urinary Tract Infections in Women, ED Back Spasm, No Trauma Additional Instructions / Restrictions: cardizem stopped. Metoprolol cut down to 12.5mg bid. Lasix reduced to 20mg dailydue to to hypotension Discharge Orders/Prescriptions Prescriptions: New diazepam 2 mg tablet 2 mg PO BID PRN (Reason: muscle spasm) Qty: 10 0RF furosemide [Lasix] 20 mg tablet 20 mg PO DAILY Qty: 30 2RF metoprolol tartrate 25 mg tablet 12.5 mg PO BID Qty: 30 2RF Entresto 24-26 mg Tablet 1 tab PO BID Qty: 60 2RF doxycycline hyclate 100 mg tablet 100 mg PO BID Qty: 14 0RF Continued Januvia 50 mg tablet 50 mg PO DAILY Jardiance 10 mg tablet 10 mg PO DAILY multivitamin Tablet 1 tab PO DAILY pravastatin 20 mg tablet 20 mg PO DAILY aspirin 81 MG tablet,chewable 81 mg PO DAILY magnesium oxide 400 MG tablet 400 mg [...] 5 mg subcut QWEEK Patient Comments: PT STATes she takes on mondays menthol-zinc oxide [CalaSoothe] 0.44-20.6 % ointment 1 [...] 3 ml inhalation Q6H.RT Qty: 120 0RF albuterol sulfate 90 mcg/actuation HFA aerosol inhaler 2 puff inhalation Q6H PRN (Reason: shortness of breath or wheezing) cetirizine 10 mg tablet 10 mg PO DAILY hydroxyzine HCl 25 mg tablet 12.5 mg PO QHS guaifenesin [Mucinex] 600 mg Tablet Extended Release 12hr 600 mg PO BID Qty: 0 0RF gabapentin 100 mg capsule 100 mg PO QHS 3 Days Qty: 3 0RF ipratropium bromide 21 mcg (0.03 %) spray,non-aerosol 1 - 2 spray INTRANASAL Q6H PRN (Reason: allergy symptoms) insulin glargine [Lantus Solostar U-100 Insulin] 100 unit/mL (3 mL) insulin pen 20 unit subcut BID (DME) lancets [TRUEplus Lancets] 28 gauge misc MISCELLANEOUS Breztri Aerosphere 160-9-4.8 mcg/actuation HFA aerosol inhaler 2 inh inhalation BID Discontinued metoprolol tartrate 25 MG tablet 25 mg PO BID furosemide [Lasix] 20 mg tablet 60 mg PO BID Qty: 180 0RF diltiazem HCl 180 mg capsule,ext.rel 24h degradable 180 mg PO DAILY Entresto 24-26 mg tablet 1 tab PO BID Qty: 60 11RF Referrals / Follow Up: Ramone Smiley MD [Primary Care Provider] - Within 1 Week Disposition Disposition (needs filled in before D/C Order can be placed): Home Health Service 03/25/25 1133<Electronically signed by Melba Hartmann MD>Melba Hartmann MD CC: Dr. Abigail Foster MD; Dr. Ramone Smiley MD ~ Signed [facility] Work Phone: 1(943) 421-553307-26-2025 [facility]07-25-2025 Progress note Author Melba Hartmann [facility] Note Date/Time March 24, 2025 4:46 pm [facility] Medical Records Department [address] [place] [address] Progress Note 03/24/25 1200 MR#: [id number] Acct: [id number] Name: OLGA DONALDSON Rep #:[id number] : 1945 80 From: Melba Hartmann MD PCP: Dr. Ramone Smiley MD Status:ADM IN Location: FL3 [id number] Subjective Subjective Patient seen and examined. She is complaining of some chronic right lower back pain for which she has a heating pad in place. I saw the patient with her nurseby her bedside. Her blood pressure is running today in the 90s systolic though she is asymptomatic. She received tizanidine as well as Entresto and blood pressure medications last night. That is contributing to the low blood pressure. Review of systems otherwise negative. Objective Data Objective Data Vital Signs: Vital Signs Temp Pulse Resp BP Pulse Ox O2 Del Method O2 Flow Rate 98.5 F 87 18 99/43 L 100 Nasal Cannula 2 03/24/25 10:40 03/24/25 10:40 03/24/25 10:40 03/24/25 10:40 03/24/25 10:40 03/24/25 10:40 03/24/25 10:40 Oxygen Flow Rate (L/min) 2 Oxygen Delivery Method Nasal Cannula Weight: 166 lb 0.129 oz Body Mass Index (BMI) 29.4 Intake & Output: Intake and Output for Last 24 Hours 03/22/25 03/23/25 03/24/25 23:59 23:59 23:59 Intake Total 2300 / 2300 720 / 720 Output Total 400 / 400 Balance 1900 / 1900 720 / 720 Medical Nutrition Assessment Dietitian: Malnutrition Criteria Met Start: 03/22/25 12:40 Freq: Status: Active Protocol: Document 03/22/25 12:41 RMA (Rec: 03/22/25 12:41 RMA [id number]) Nutrition Malnutrition Evidence of Yes Malnutrition Exists Malnutrition (severe Chronic ): Evidenced By Suboptimal Energy Intake (Severe),Weight Loss (Severe) Clinical Problem Chronic Disease or Condition Related Malnutrition Etiology severe protein-calorie malnutrition in the context of chronic disease and debility related to inadequate oral intake and increased energy expenditure Signs/Symptoms as evidenced by ~6% unintentional weight loss x past 1 month, PO meeting less than 75% estimated nutrition needs Status Active Problem Recommendation Dietitian Will adjust diet to 2000 calorie; consistent Recommendations/ carbohydrate. Changes Will continue 120mL glucerna shake 3 times per day with medpas. Will add extra 1-2 oz meat/protein Q meal as tolerated. Will trend weights closely as available. Lab / Micro Data 03/24/25 07:40 03/24/25 07:40 Labs: Laboratory Results - last 24 hr 03/23/25 11:52: POC Glucose 232 H 03/23/25 14:36: Potassium 5.2 H 03/23/25 16:57: POC Glucose 251 H 03/23/25 20:58: POC Glucose 257 H 03/24/25 06:59: POC Glucose 156 H 03/24/25 07:40: WBC 8.8, RBC 3.42 L, Hgb 9.1 L, Hct 29.7 L, MCV 86.8, MCH 26.6 L, MCHC 30.6 L, RDW Std Deviation 52.3 H, RDW Coeff of Vijay 16.4 H, Plt Count 288,MPV 10.7, Immature Gran % (Auto) 0.300, Neut % (Auto) 68.8, Lymph % (Auto) 21.3,[place] % (Auto) 8.5, Eos % (Auto) 0.8, Baso % (Auto) 0.3, Absolute Neuts (auto) 6.1, Absolute Lymphs (auto) 1.88, Nucleated RBC % 0, Sodium 135, Potassium 4.8, Chloride 97 L, Carbon Dioxide 27.0, Anion Gap 11, BUN 24 H, Creatinine 1.21 H, Estim Creat Clear Calc 35.44 L, Est GFR (MDRD) Non-Af 45 L, BUN/Creatinine Ratio 19.7, Glucose 165 H, Calcium 10.5 Micro: Microbiology 03/21/25 15:05 Urine Catheter - Catheter Urine Culture - Final Staphylococcus epidermidis Physical Exam Const alert, oriented x3 and no apparent distress General Appearance: cooperative and well developed HEENT normocephalic, head/scalp atraumatic, moist oral mucous membranes and oropharynxnormal Eyes PERRL and EOMs intact bilaterally Neck no lymphadenopathy and supple Lymph Lymphatic: no lymphedema noted Resp Resp Narrative: milldy diminished breath sounds bibasally, no wheezes or crackles. Remains on 2Lof oxygen by nasal canula. Cardio regular rate, regular rhythm, S1 normal heart sound, S2 normal heart sound and no murmurs GI normal to inspection, nondistended, normoactive bowel sounds, soft to palpation,non-tender and non-distended Extremity normal capillary refill, no clubbing, cyanosis or edema and no calf tenderness General Extremity: no tenderness to palpation of joints or extremities Skin General Skin Exam: no breakdown Neuro CN's II-XII intact bilaterally, no focal motor deficits and no sensory deficits noted Motor Exam: strength 5/5 throughout and general weakness Psych thought process normal, cooperative and affect normal Appearance: appropriate Assessment & Plan Assessment/Plan (1) Acute UTI: (2) COPD exacerbation: PLAN: Plan #Acute intractable pain with debility and failure to thrive * PT/OT on board. Fall precautions. * PO tylenol, tizanidine and IV toradol prn. * #Acute UTI * has a chronic neurogenic bladder and self catheterizes. * most recent cultures positive for Enterococcus so patient on IV levaquin * urine cultures growing gram positive cocci, speciation is pending. Will continue IV levaquin pending speciation. #Probable atelectasis * CT chest showed atypical patchy airspace in bilateral posterior medial lung bases more pronounced on the left. This was similar to previous Chest CT * speech therapy on board * aspiration precautions. * #Hypotension: BP down in the 90s systolic today. She is currently asymptomatic. Will hold Entresto and blood pressure medications. Give a bolus of 500 cc normal saline. #Chronic heart failure with reduced ejection fraction: Hold Lasix and Entresto as well as atenolol due to hypotension. She has known EF of 35 to 40%. #Hyperkalemia:resolved with kayexalate. K is 4.8 today. #Chronic hypoxic respiratory failure due to COPD and asthma * on 2L of oxygen by nasal canula * on roflumilast. * breathing treatment with bronchodilators. * # History of left-sided breast cancer: S/p lumpectomy in 2003 #Type 2 diabetes mellitus with neuropathy: On Lantus as well as sitagliptin empagliflozin the last tirzepatide. Insulin sliding scale. Accu-Cheks ACHS. #Benign essential hypertension: On carvedilol. IV hydralazine as needed #History of multinodular goiter: Stable #Glaucoma: On netarsudil latanoprost eyedrops DVT prophylaxis: heparin. Charges/Coding Visit Charges Inpatient E&M: 60741 Subs Hosp L2 03/24/25 1646 <Electronically signed by Melba Hartmann MD> Melba Hartmann MD Cosigner Signature (if applicable): CC: ~ Signed [facility] Work Phone: 1(216) 955-722507-25-2025 Discharge summary Author Ethan Suarez [facility] Note Date/Time March 23, 2025 10:[facility] [address] [place] [id number] Emergency Department Summary 03/21/25 MR#: [id number] Acct: [id number] Name: OLGA DONALDSON Rep #:[id number] : 1945 80 From: Ethan Casanova PCP: Dr. Ramone Smiley MD Status:ADM IN [id number] <Dr. Ethan Suarez DO - Last Filed: 03/23/25 22:12> History of Present Illness Chief Complaint: Back Informant: patient Narrative Narrative: Intermittent right sided back spasms for last couple weeks. Symptoms started 2 days after patient in the ED states had what magi describes as an enema due toconstipation. She had multiple bowel movements couple days then pain started. She since then has been having normal bowel movements daily. No falls. No paindown the legs. No loss of bowel or bladder control. She does self cath for urine. Denies fever chills or sweats. Denies nausea or vomiting. She ambulates with a walker. Currently lives at home with her spouse. She does wear chronic oxygenation. States she was hospitalized prior for viral syndrome requiring oxygen. Using Tylenol last dose was 5 hours prior to arrival. Also reports soreness in her bilateral region due to prolonged laying down at skilled facility. [facility] <Dr. Ethan Suarez, DO - Last Filed: 03/23/25 22:12> [facility] Medical History Former smoker On home oxygen therapy Osteoporosis History of diabetes mellitus COPD exacerbation Hypoxia Elevated troponin Acute dyspnea COPD with exacerbation Anemia History of COPD Elevated brain natriuretic peptide (BNP) level Elevated troponin Acute hypoxemic respiratory failure Obesity (BMI 30.0-34.9) Elevated troponin Lactic acidosis Poor venous access Diabetic polyneuropathy Hypomagnesemia Debility Fracture of hip, left, closed Coronary artery disease Weakness Gastroenteritis Paronychia of left index finger Abscess Vaginal cyst Anxiety Depression Irregular heart beat Multiple thyroid nodules Postmenopausal bleeding Foraminal stenosis of lumbar region Lumbar spinal stenosis Diabetic retinopathy Colon polyp GERD (gastroesophageal reflux disease) Thyroid goiter Hyperlipidemia Hypokalemia Microcytic anemia Neurogenic [...] Asthma Pruritus Goiter, nontoxic, multinodular Anemia Diabetes COPD (chronic obstructive pulmonary disease) History of constipation Hx of venous thrombosis and embolism History of malignant neoplasm of breast Hypertension Type 2 diabetes mellitus Asthma Home Medications ?Medication ?Instructions ?Recorded ?Last Taken ?Type aspirin 81 mg chewable tablet 81 mg PO DAILY HEART HEA LTH 01/21/16 01/15/25 History magnesium oxide 400 mg (241.3 mg 400 mg PO BID SUPPLEM ENT 08/16/18 01/15/25 History magnesium) tablet metoprolol tartrate 25 mg tablet 25 mg PO BID BLOOD LA ESSURE 08/16/18 01/15/25 History pantoprazole 40 mg [...] (3 x 20 mg) PO B ID water 02/06/25 Unknown Rx pill #180 tabs ipratropium 0.5 mg-albuterol 3 mg 3 ml inhalation Q6H. RT sob #120 02/06/25 Unknown Rx (2.5 mg base)/3 mL nebulization amps soln sacubitril 24 mg-valsartan 26 mg 1 tab PO BID chf #60 tabs 02/07/25 Unknown Rx tablet (Entresto) albuterol sulfate 90 mcg/actuation 2 puff inhalation Q 6H PRN 02/09/25 Unknown History aerosol inhaler shortness of breath or wheez ing cetirizine 10 mg tablet 10 mg PO DAILY allergy 02/09 Unknown History hydroxyzine HCl 25 mg tablet 12.5 mg PO QHS allergies 02/09/25 Unknown History gabapentin 100 mg capsule 100 mg PO QHS NERVE PAIN 3 days 02/17/25 Unknown Rx #3 caps guaifenesin 600 mg tablet, 600 mg PO BID cough #0 tabs 02/17/25 Unknown Rx extended release 12 hr (Mucinex) diazepam 2 mg tablet 2 mg PO BID PRN muscle spasm #10 03/21/25 Unknown Rx TABLETS nitrofurantoin 100 mg PO Q12 #14 CAPSULES 0 03/21/25 Unknown Rx monohydrate/macrocrystals 100 mg capsule Allergy/AdvReac Type Severity Reaction Status Date / Time adhesive tape (tape) Allergy NEEDS Verified 03/21/25 13:26 FOLLOW-UP cephalexin monohydrate (From Allergy Rash Verified 03/21/25 13:26 Keflex) clopidogrel bisulfate (From Allergy Other Verified 03/21/25 13:26 Plavix) oxycodone AdvReac Severe made me Verified 03/23/25 18:38 really crazy 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 Ethan Suarez, DO - Last Filed: 03/23/25 22:12> ROS ED Constitutional Constitutional ED: Denies fever(s) Cardiovascular Cardiovascular: Denies chest pain Respiratory/Chest Respiratory/Chest: Denies cough Gastrointestinal Gastrointestinal: Denies diarrhea or vomiting Musculoskeletal Musculoskeletal: Reports back pain Integumentary Denies rash or wounds Neurologic Neurologic: Denies weakness EXAM <Dr. Ethan Suarez, DO - Last Filed: 03/23/25 22:12> Physical Exam Const Vital Signs: 03/21/25 13:23 03/21/25 17:22 03/21/25 21:00 Temperature 97.6 F L Temperature Source Oral Pulse Rate 97 78 86 Respiratory Rate 18 16 19 H Blood Pressure 103/52 L 134/78 H 136/81 H Blood Pressure Mean 69 96 99 Pulse Ox 98 99 94 Oxygen Delivery Method Nasal Cannula Room Air Nasal Cannula Oxygen Flow Rate (L/min) 2 2 03/21/25 22:28 Temperature 98.4 F Temperature Source Pulse Rate 86 Respiratory Rate 19 H Blood Pressure 136/81 H Blood Pressure Mean 99 Pulse Ox 94 Oxygen Delivery Method Oxygen Flow Rate (L/min) Positive well nourished and well developed Constitutional Narrative: Chronic nasal cannula no respiratory distress General Appearance ED: well developed and NAD HEENT Reports moist mucous membranes normocephalic and atraumatic Eyes General Eye ED: Yes normal appearance of both eyes Neck full ROM Chest Wall Chest: Negative for tenderness Resp normal respiratory effort and normal air movement Effort and Inspection: symmetric chest movement; Negative for respiratory distress Cardio regular rate, regular rhythm and no murmurs Peripheral Pulses: pulses 2+ throughout GI normal to inspection, nondistended, normoactive bowel sounds and non-tender Palpation: Negative for guarding or rebound tenderness present Back/Spine Back/Spine Narrative: Reproducible lateral right lumbar tenderness with palpation. No midline tenderness. Straight leg test negative bilaterally. 1+ patellar reflex bilaterally. Extremity normal to inspection General Extremety ED: Negative for edema or tenderness General Extremity: Negative for edema Neuro oriented x3 and no sensory deficits noted Sensorium / Orientation: awake and alert Skin no rashes or lesions noted and no wounds <Dr. Noé Currie, DO - Last Filed: 03/21/25 23:01> Physical Exam Const Vital Signs: 03/21/25 13:23 03/21/25 17:22 03/21/25 21:00 Temperature 97.6 F L Temperature Source Oral Pulse Rate 97 78 86 Respiratory Rate 18 16 19 H Blood Pressure 103/52 L 134/78 H 136/81 H Blood Pressure Mean 69 96 99 Pulse Ox 98 99 94 Oxygen Delivery Method Nasal Cannula Room Air Nasal Cannula Oxygen Flow Rate (L/min) 2 2 03/21/25 22:28 Temperature 98.4 F Temperature Source Pulse Rate 86 Respiratory Rate 19 H Blood Pressure 136/81 H Blood Pressure Mean 99 Pulse Ox 94 Oxygen Delivery Method Oxygen Flow Rate (L/min) MDM <Dr. Ethan Suarez, DO - Last Filed: 03/23/25 22:12> MDM MDM Narrative Medical decision making narrative: Interventions / MDM: Differential diagnosis: Back spasms, UTI Diagnosis considered but do not suspect: No cauda equina symptoms. No radicularsymptoms. My EKG interpretation: N/A Imaging independently reviewed and interpreted by myself: N/A External documents reviewed: Urine culture 03/04/2025 Enterococcus faecalis pansensitive. Test considered but not ordered:N/A ED course: Patient with back spasms, no radicular symptoms. She took Tylenol 5 hours ago. Order for low-dose Valium to help with symptoms, will cath for urine 1600: Clinically is feeling better. Urine showed signs of infection urine culture 2 weeks ago had Enterococcus faecalis pansensitive. With her allergies she will be started on Macrobid. Urine culture sent. Additional Tylenol ordered. Will have nursing ambulate with her walker. If able to ambulate can be discharged home with continued antibiotics. Re-evaluation: stable Disposition discussed with patient/family/significant other: Patient Case discussed with consulting clinician: N/A This note was generated with [employer] dictation software. It may contain incorrectwords, spelling, and punctuation that were not noted in checking the note beforesigning. Lab Data Attestation: I reviewed the patient's lab results. Labs: Laboratory Results - last 24 hr 03/21/25 03/21/25 03/21/25 15:05 17:55 19:12 WBC 8.4 RBC 3.59 L Hgb 9.7 L Hct 31.3 L MCV 87.2 MCH 27.0 MCHC 31.0 L RDW Std Deviation 52.5 H RDW Coeff of Vijay 16.4 H Plt Count 304 MPV 11.1 Immature Gran % (Auto) 0.500 Neut % (Auto) 62.3 Lymph % (Auto) 27.1 [place] % (Auto) 8.6 Eos % (Auto) 0.8 Baso % (Auto) 0.7 Absolute Neuts (auto) 5.2 Absolute Lymphs (auto) 2.26 Nucleated RBC % 0 Sodium 137 Potassium 4.4 Chloride 98 Carbon Dioxide 26.4 Anion Gap 13 BUN 18 Creatinine 1.00 Estim Creat Clear Calc 41.62 L Est GFR (MDRD) Non-Af 57 L BUN/Creatinine Ratio 18.2 Glucose 128 H Calcium 10.5 Urine Color Yellow Urine Clarity Sl. Cloudy Urine pH 7.0 Ur Specific Spade 1.010 Urine Protein 30 H Urine Glucose (UA) 1000 H Urine Ketones Negative Urine Occult Blood 50 H Urine Nitrite Negative Urine Bilirubin Negative Urine Urobilinogen Normal Ur Leukocyte Esterase 500 H Urine RBC 0-5 SEEN Urine WBC >100 SEEN Ur Squamous Epith Cells 0-5 SEEN Urine Bacteria 1+ Urine Mucus 0 SEEN Urine Yeast 1+ POC Glucose 114 H Radiography Diagnostic Testing: Clinical Impression(s) from Imaging Studies Lumbar Spine CT 03/21/25 18:00 IMPRESSION: No acute fracture or malalignment. Multilevel spondylotic changes as described,similar to prior exam, with moderate-advanced spinal canal and bilateral neural foraminal narrowing at L3-4, L4-5, and L5-S1. Additional ancillary findings as noted, discussed separately in the abdominal CT report. Reading Location: [facility] Abdomen/Pelvis CT 03/21/25 18:02 IMPRESSION: 1. Similar patchy airspace consolidation in the bilateral lung bases, suggestingaspiration. 2. Moderate colonic stool burden with persistent mild distention and wall thickening of the rectal vault, suggesting chronic constipation and stercoral proctitis, although less pronounced from prior exam. 3. Multiple additional non-acute ancillary findings, as described above. Reading Location: [facility] <Dr. Noé Currie, DO - Last Filed: 03/21/25 23:01> MDM MDM Narrative Medical decision making narrative: Interventions / MDM: Differential diagnosis: Back spasms, UTI Diagnosis considered but do not suspect: No cauda equina symptoms. No radicularsymptoms. My EKG interpretation: N/A Imaging independently reviewed and interpreted by myself: N/A External documents reviewed: Urine culture 03/04/2025 Enterococcus faecalis pansensitive. Test considered but not ordered:N/A ED course: Patient with back spasms, no radicular symptoms. She took Tylenol 5 hours ago. Order for low-dose Valium to help with symptoms, will cath for urine 1600: Clinically is feeling better. Urine showed signs of infection urine culture 2 weeks ago had Enterococcus faecalis pansensitive. With her allergies she will be started on Macrobid. Urine culture sent. Additional Tylenol ordered. Will have nursing ambulate with her walker. If able to ambulate can be discharged home with continued antibiotics. Re-evaluation: stable Disposition discussed with patient/family/significant other: Patient Case discussed with consulting clinician: N/A This note was generated with [employer] dictation software. It may contain incorrectwords, spelling, and punctuation that were not noted in checking the note beforesigning. Patient was turned over to me by Dr. SUAREZ @ 1600 Brief history: As above Physical exam: TTP over right side of the abdomen, right CVA tenderness. No pulsatile abdominal masses. Symmetric pulses in bilateral lower extremities MDM/plan: Given patient's inability to walk, abdominal pain/flank pain/back pain obtain additional images and labs to further assess the patient's presentation Labs and images reviewed (if obtained): CBC with no leukocytosis, noted baseline anemia, no thrombocytopenia BMP without evidence of significant electrolyte abnormalities, no anion gap, no acute kidney injury. UA consistent with UTI CT scan of the abdomen and pelvis shows no acute intra-abdominal surgical pathology CT scan lumbar spine shows no evidence of obvious bony abnormality such as fracture or dislocation Upon reevaluation the patient's vital remained stable. Ambulation was attemptedafter morphine and Toradol however patient cannot ambulate satisfactorily. It was decided she was not safe to go home. Given UTI diffuse weakness and admitted ambulations admitted to [facility] under hospitalist. Discussed with Dr. Foster. Lab Data Labs: Laboratory Results - last 24 hr 03/21/25 03/21/25 03/21/25 15:05 17:55 19:12 WBC 8.4 RBC 3.59 L Hgb 9.7 L Hct 31.3 L MCV 87.2 MCH 27.0 MCHC 31.0 L RDW Std Deviation 52.5 H RDW Coeff of Vijay 16.4 H Plt Count 304 MPV 11.1 Immature Gran % (Auto) 0.500 Neut % (Auto) 62.3 Lymph % (Auto) 27.1 [place] % (Auto) 8.6 Eos % (Auto) 0.8 Baso % (Auto) 0.7 Absolute Neuts (auto) 5.2 Absolute Lymphs (auto) 2.26 Nucleated RBC % 0 Sodium 137 Potassium 4.4 Chloride 98 Carbon Dioxide 26.4 Anion Gap 13 BUN 18 Creatinine 1.00 Estim Creat Clear Calc 41.62 L Est GFR (MDRD) Non-Af 57 L BUN/Creatinine Ratio 18.2 Glucose 128 H Calcium 10.5 Urine Color Yellow Urine Clarity Sl. Cloudy Urine pH 7.0 Ur Specific Spade 1.010 Urine Protein 30 H Urine Glucose (UA) 1000 H Urine Ketones Negative Urine Occult Blood 50 H Urine Nitrite Negative Urine Bilirubin Negative Urine Urobilinogen Normal Ur Leukocyte Esterase 500 H Urine RBC 0-5 SEEN Urine WBC >100 SEEN Ur Squamous Epith Cells 0-5 SEEN Urine Bacteria 1+ Urine Mucus 0 SEEN Urine Yeast 1+ POC Glucose 114 H Radiography Diagnostic Testing: Clinical Impression(s) from Imaging Studies Lumbar Spine CT 03/21/25 18:00 IMPRESSION: No acute fracture or malalignment. Multilevel spondylotic changes as described,similar to prior exam, with moderate-advanced spinal canal and bilateral neural foraminal narrowing at L3-4, L4-5, and L5-S1. Additional ancillary findings as noted, discussed separately in the abdominal CT report. Reading Location: [facility] Abdomen/Pelvis CT 03/21/25 18:02 IMPRESSION: 1. Similar patchy airspace consolidation in the bilateral lung bases, suggestingaspiration. 2. Moderate colonic stool burden with persistent mild distention and wall thickening of the rectal vault, suggesting chronic constipation and stercoral proctitis, although less pronounced from prior exam. 3. Multiple additional non-acute ancillary findings, as described above. Reading Location: [facility] Discharge Plan Dx/Rx/DC Orders Clinical Impression: Back muscle spasm, Acute UTI Disposition Disposition: Acute Care Hospital [facility] Discharge Date/Time: 03/22/25 00:22 What to do if you have Problems For any increased pain, shortness of breath, bleeding, nausea or vomiting, chestpain, or any unexpected problems, contact your Primary Care Provider. Call [facility] ([phone]) or report to the closest Emergency Room. Call 911 if necessary. 03/23/252211 <Electronically signed by Ethan Casanova> Cosigner Signature (if applicable): 03/21/25 2301 <Electronically signed by Noé Currie DO> CC: Dr. Ramone Smiley MD ~ Signed [facility] Work Phone: 1(294) 241-648607-24-2025 Progress note Author Melba [facility] Note Date/Time March 23, 2025 1:37 pm [facility] Medical Records Department [address] [place] [address] Progress Note 03/23/25 1328 MR#: [id number] Acct: [id number] Name: OLGA DONALDSON Rep #:[id number] : 1945 80 From: Melba Hartmann MD PCP: Dr. Ramone Smiley MD Status:ADM IN Location: MS3 BX140-3 Subjective Subjective Patient seen and examined with her nurse by her bedside. She had no active complaints and had an uneventful night. Review of systems otherwise negative. Her potassium is elevated at 5.8 today. Objective Data Objective Data Vital Signs: Vital Signs Temp Pulse Resp BP Pulse Ox O2 Del Method O2 Flow Rate 97.9 F 88 18 108/48 L 99 Nasal Cannula 2 03/23/25 08:19 03/23/25 13:08 03/23/25 13:08 03/23/25 08:19 03/23/25 08:19 03/23/25 08:19 03/23/25 08:19 Oxygen Flow Rate (L/min) 2 Oxygen Delivery Method Nasal Cannula Weight: 161 lb 9.581 oz Body Mass Index (BMI) 28.6 Intake & Output: Intake and Output for Last 24 Hours 03/21/25 03/22/25 03/23/25 23:59 23:59 23:59 Intake Total 2300 / 2300 Output Total 400 / 400 Balance 1900 / 1900 Medical Nutrition Assessment Dietitian: Malnutrition Criteria Met Start: 03/22/25 12:40 Freq: Status: Active Protocol: Document 03/22/25 12:41 RMA (Rec: 03/22/25 12:41 RMA [id number]) Nutrition Malnutrition Evidence of Yes Malnutrition Exists Malnutrition (severe Chronic ): Evidenced By Suboptimal Energy Intake (Severe),Weight Loss (Severe) Clinical Problem Chronic Disease or Condition Related Malnutrition Etiology severe protein-calorie malnutrition in the context of chronic disease and debility related to inadequate oral intake and increased energy expenditure Signs/Symptoms as evidenced by ~6% unintentional weight loss x past 1 month, PO meeting less than 75% estimated nutrition needs Status Active Problem Recommendation Dietitian Will adjust diet to 2000 calorie; consistent Recommendations/ carbohydrate. Changes Will continue 120mL glucerna shake 3 times per day with medpas. Will add extra 1-2 oz meat/protein Q meal as tolerated. Will trend weights closely as available. Lab / Micro Data 03/23/25 05:13 03/23/25 05:13 Labs: Laboratory Results - last 24 hr 03/22/25 16:56: POC Glucose 232 H 03/22/25 23:03: POC Glucose 243 H 03/23/25 05:13: WBC 7.4, RBC 3.26 L, Hgb 8.8 L, Hct 28.0 L, MCV 85.9 D, MCH 27.0, MCHC 31.4 L, RDW Std Deviation 50.8 H, RDW Coeff of Vijay 16.0 H, Plt Count 274, MPV 10.7, Immature Gran % (Auto) 0.500, Neut % (Auto) 76.1 H, Lymph % (Auto) 16.5 L, [place] % (Auto) 6.8, Eos % (Auto) 0.0, Baso % (Auto) 0.1, Absolute Neuts (auto) 5.6, Absolute Lymphs (auto) 1.21, Nucleated RBC % 0, Sodium 132 L, Potassium 5.8 H, Chloride 98, Carbon Dioxide 26.0, Anion Gap 8, BUN 19, Creatinine 1.25 H, Estim Creat Clear Calc 33.86 L, Est GFR (MDRD) Non-Af 43 L, BUN/Creatinine Ratio 15.2, Glucose 198 H, Calcium 10.2 03/23/25 08:12: POC Glucose 228 H 03/23/25 11:52: POC Glucose 232 H Micro: Microbiology 03/21/25 15:05 Urine Catheter - Catheter Urine Culture - Preliminary Gram positive organism Physical Exam Const alert, oriented x3 and no apparent distress General Appearance: cooperative HEENT normocephalic, head/scalp atraumatic, moist oral mucous membranes and oropharynxnormal Eyes PERRL and EOMs intact bilaterally Neck no lymphadenopathy and supple Lymph Lymphatic: no lymphedema noted Resp Resp Narrative: milldy diminished breath sounds bibasally, no wheezes or crackles. On 2L of oxygen by nasal canula. Cardio regular rate, regular rhythm, S1 normal heart sound, S2 normal heart sound and no murmurs GI normal to inspection, nondistended, normoactive bowel sounds, soft to palpation,non-tender and non-distended Extremity normal capillary refill, no clubbing, cyanosis or edema and no calf tenderness General Extremity: no tenderness to palpation of joints or extremities Skin General Skin Exam: no breakdown Neuro CN's II-XII intact bilaterally, no focal motor deficits and no sensory deficits noted Motor Exam: strength 5/5 throughout and general weakness Psych thought process normal, cooperative and affect normal Appearance: appropriate Assessment & Plan Assessment/Plan (1) Acute UTI: (2) COPD exacerbation: PLAN: Plan #Acute intractable pain with debility and failure to thrive * PT/OT on board. Fall precautions. * PO tylenol, tizanidine and IV toradol prn. * #Acute UTI * has a chronic neurogenic bladder and self catheterizes. * most recent cultures positive for Enterococcus so patient on IV levaquin * urine cultures growing gram positive cocci, speciation is pending. Will continue IV levaquin for now #Probable atelectasis * CT chest showed atypical patchy airspace in bilateral posterior medial lung bases more pronounced on the left. This was similar to previous Chest CT * speech therapy on board * aspiration precautions. * #Hyperkalemia: Potassium is 5.8 today. Will DC home potassium supplementation. Repeat BMP to monitor. #Chronic hypoxic respiratory failure due to COPD and asthma * on 2L of oxygen by nasal canula * on roflumilast. * breathing treatment with bronchodilators. * # History of left-sided breast cancer: S/p lumpectomy in 2003 #Type 2 diabetes mellitus with neuropathy: On Lantus as well as sitagliptin empagliflozin the last tirzepatide. Insulin sliding scale. Accu-Cheks ACHS. #Benign essential hypertension: On carvedilol. IV hydralazine as needed #History of multinodular goiter: Stable #Glaucoma: On netarsudil latanoprost eyedrops DVT prophylaxis: heparin. Charges/Coding Visit Charges Inpatient E&M: 81570 Subs Hosp L2 03/23/25 1337 <Electronically signed by Melba Hartmann MD> Melba Hartmann MD Cosigner Signature (if applicable): CC: ~ Signed [facility] Work Phone: [phone]) 757-742807-23-2025 Progress note Author Melba [facility] Note Date/Time March 22, 2025 2:48 pm [facility] Medical Records Department [address] [place] [id number] Progress Note 03/22/25 1428 MR#: [id number] Acct: [id number] Name: OLGA DONALDSON Rep #:[id number] : 1945 80 From: Melba Hartmann MD PCP: Dr. Ramone Smiley MD Status:ADM IN Location: [id number] Subjective Subjective Patient seen and examined with her nurse by her bedside. She complained of jeanne rectal pain. Her back pain had improved. Review of systems is otherwise negative. She is on 2L of oxygen which is her baseline. Objective Data Objective Data Vital Signs: Vital Signs Temp Pulse Resp BP Pulse Ox O2 Del Method O2 Flow Rate 98.6 F 98 18 109/41 L 98 Nasal Cannula 2 03/22/25 12:30 03/22/25 13:00 03/22/25 12:30 03/22/25 12:30 03/22/25 12:30 03/22/25 12:30 03/22/25 12:30 Oxygen Flow Rate (L/min) 2 Oxygen Delivery Method Nasal Cannula Weight: 154 lb 12.232 oz Body Mass Index (BMI) 27.4 Intake & Output: Intake and Output for Last 24 Hours 03/20/25 03/21/25 03/22/25 23:59 23:59 23:59 Intake Total 1850 / 1850 Output Total 400 / 400 Balance 1450 / 1450 Medical Nutrition Assessment Dietitian: Malnutrition Criteria Met Start: 03/22/25 12:40 Freq: Status: Active Protocol: Document 03/22/25 12:41 RMA (Rec: 03/22/25 12:41 RMA [id number]) Nutrition Malnutrition Evidence of Yes Malnutrition Exists Malnutrition (severe Chronic ): Evidenced By Suboptimal Energy Intake (Severe),Weight Loss (Severe) Clinical Problem Chronic Disease or Condition Related Malnutrition Etiology severe protein-calorie malnutrition in the context of chronic disease and debility related to inadequate oral intake and increased energy expenditure Signs/Symptoms as evidenced by ~6% unintentional weight loss x past 1 month, PO meeting less than 75% estimated nutrition needs Status Active Problem Recommendation Dietitian Will adjust diet to 2000 calorie; consistent Recommendations/ carbohydrate. Changes Will continue 120mL glucerna shake 3 times per day with medpas. Will add extra 1-2 oz meat/protein Q meal as tolerated. Will trend weights closely as available. Lab / Micro Data 03/22/25 05:09 03/22/25 05:09 Labs: Laboratory Results - last 24 hr 03/21/25 15:05: Urine Color Yellow, Urine Clarity Sl. Cloudy, Urine pH 7.0, Ur Specific Spade 1.010, Urine Protein 30 H, Urine Glucose (UA) 1000 H, Urine Ketones Negative, Urine Occult Blood 50 H, Urine Nitrite Negative, Urine Bilirubin Negative, Urine Urobilinogen Normal, Ur Leukocyte Esterase 500 H, Urine RBC 0-5 SEEN, Urine WBC >100 SEEN, Ur Squamous Epith Cells 0-5 SEEN, UrineBacteria 1+, Urine Mucus 0 SEEN, Urine Yeast 1+ 03/21/25 17:55: WBC 8.4, RBC 3.59 L, Hgb 9.7 L, Hct 31.3 L, MCV 87.2, MCH 27.0, MCHC 31.0 L, RDW Std Deviation 52.5 H, RDW Coeff of Vijay 16.4 H, Plt Count 304, MPV 11.1, Immature Gran % (Auto) 0.500, Neut % (Auto) 62.3, Lymph % (Auto) 27.1,[place] % (Auto) 8.6, Eos % (Auto) 0.8, Baso % (Auto) 0.7, Absolute Neuts (auto) 5.2, Absolute Lymphs (auto) 2.26, Nucleated RBC % 0, Sodium 137, Potassium 4.4, Chloride 98, Carbon Dioxide 26.4, Anion Gap 13, BUN 18, Creatinine 1.00, Estim Creat Clear Calc 41.62 L, Est GFR (MDRD) Non-Af 57 L, BUN/Creatinine Ratio 18.2,Glucose 128 H, Calcium 10.5 03/21/25 19:12: POC Glucose 114 H 03/22/25 01:03: POC Glucose 139 H 03/22/25 05:09: WBC 7.0, RBC 3.41 L, Hgb 9.4 L, Hct 30.9 L, MCV 90.6, MCH 27.6, MCHC 30.4 L, RDW Std Deviation 54.9 H, RDW Coeff of Vijay 16.6 H, Plt Count 193, MPV 11.1, Immature Gran % (Auto) 1.100 H, Neut % (Auto) 65.3, Lymph % (Auto) 24.0, [place] % (Auto) 8.0, Eos % (Auto) 0.9, Baso % (Auto) 0.7, Absolute Neuts (auto) 4.6, Absolute Lymphs (auto) 1.69, Nucleated RBC % 0, Differential CommentSCANNED, Sodium 135, Potassium 4.2, Chloride 100, Carbon Dioxide 25.4, Anion Gap10, BUN 17, Creatinine 0.93, Estim Creat Clear Calc 44.58 L, Est GFR (MDRD) Non-Af 62, BUN/Creatinine Ratio 18.4, Glucose 144 H, Calcium 10.0, Total Bilirubin 0.21, AST 19, ALT 8, Alkaline Phosphatase 68, Total Protein 6.1, Albumin 3.0 L, Globulin 3.1, Albumin/Globulin Ratio 1.0 03/22/25 12:55: POC Glucose 131 H Micro: Microbiology 03/21/25 15:05 Urine Catheter - Catheter Urine Culture - Preliminary Gram positive organism Radiography Diagnostic Testing: Radiology Impression Lumbar Spine CT 03/21/25 18:00 IMPRESSION: No acute fracture or malalignment. Multilevel spondylotic changes as described,similar to prior exam, with moderate-advanced spinal canal and bilateral neural foraminal narrowing at L3-4, L4-5, and L5-S1. Additional ancillary findings as noted, discussed separately in the abdominal CT report. Reading Location: [facility] Abdomen/Pelvis CT 03/21/25 18:02 IMPRESSION: 1. Similar patchy airspace consolidation in the bilateral lung bases, suggestingaspiration. 2. Moderate colonic stool burden with persistent mild distention and wall thickening of the rectal vault, suggesting chronic constipation and stercoral proctitis, although less pronounced from prior exam. 3. Multiple additional non-acute ancillary findings, as described above. Reading Location: [facility] Physical Exam Const alert, oriented x3 and no apparent distress General Appearance: cooperative and well developed HEENT normocephalic, head/scalp atraumatic, moist oral mucous membranes and oropharynxnormal Eyes PERRL and EOMs intact bilaterally Neck no lymphadenopathy and supple Lymph Lymphatic: no lymphedema noted Resp Resp Narrative: milldy diminished breath sounds bibasally, no wheezes or crackles. On 2L of oxygen by nasal canula. Cardio regular rate, regular rhythm, S1 normal heart sound, S2 normal heart sound and no murmurs GI normal to inspection, nondistended, normoactive bowel sounds, soft to palpation,non-tender and non-distended Extremity normal capillary refill, no clubbing, cyanosis or edema and no calf tenderness General Extremity: no tenderness to palpation of joints or extremities Skin General Skin Exam: no breakdown Neuro CN's II-XII intact bilaterally, no focal motor deficits and no sensory deficits noted Motor Exam: strength 5/5 throughout and general weakness Psych thought process normal, cooperative and affect normal Appearance: appropriate Assessment & Plan Assessment/Plan (1) Acute UTI: (2) COPD exacerbation: PLAN: Plan #Acute intractable pain with debility and failure to thrive * PT/OT on board. Fall precautions. * PO tylenol, tizanidine and IV toradol prn. * $Acute UTI * has a chronic neurogenic bladder and self catheterizes. * most recent cultures positive for Enterococcus so patient on IV levaquin * urine cultures pending. #Probable atelectasis * CT chest showed atypical patchy airspace in bilateral posterior medial lung bases more pronounced on the left. This was similar to previous Chest CT * speech therapy on board * aspiration precautions. * #Chronic hypoxic respiratory failure due to COPD and asthma * on 2L of oxygen by nasal canula * on roflumilast. * breathing treatment with bronchodilators. * # History of left-sided breast cancer: S/p lumpectomy in 2003 #Type 2 diabetes mellitus with neuropathy: On Lantus as well as sitagliptin empagliflozin the last tirzepatide. Insulin sliding scale. Accu-Cheks ACHS. #Benign essential hypertension: On carvedilol. IV hydralazine as needed #History of multinodular goiter: Stable #Glaucoma: On netarsudil latanoprost eyedrops DVT prophylaxis: heparin. Charges/Coding Visit Charges Inpatient E&M: 95484 Subs Hosp L2 03/22/25 5048 <Electronically signed by Melba Hartmann MD> Melba Hartmann MD Cosigner Signature (if applicable): CC: ~ Signed [facility] Work Phone: 1(210) 460-457507-23-2025 History and physical note Author Abigail Foster [facility] Note Date/Time March 22, 2025 12:4 1am [facility] Medical Records Department [address] [place] [address] H&P Exam - Hospitalist 03/21/25 9598 MR#: [id number] Acct: [id number] Name: OLGA DONALDSON Rep #:[id number] : 1945 80 From: Abigail Foster MD PCP: Dr. Ramone Smiley MD Status:ADM IN [place] [id number] - General General Date of Admission: 03/21/25 Date of Service: 03/21/25 Chief Complaint: Intractable back pain, spasms. HPI Narrative The patient is an 80 y/o F w/ PMHx: Chronic neurogenic bladder with self-catheterization chronically, COPD/Asthma w/ Chronic Hypoxic Respiratory Failure,Former tobacco use, Chronic normocytic anemia/iron deficiency anemia, CKD stage III unclear subtype per GFR trending, Anxiety and Depression, Diabetes mellitus type II with chronic neuropathy, Chronic idiopathic constipation, PAD, GERD, Hx VTE (DVT, PE), Hx L sided breast CA unclear type s/p lumpectomy considered in remission who presents to the [facility] ED on 03/21/2025 with history of right-sided back spasms persistent over the last couple weeks with bowel movements daily with underlying significant chronic constipation history with ongoing self-catheterization secondary to neurogenic bladder currently living at home with her spouse with recent hospitalization for viral syndrome prompting eventual ED evaluation to be cautious. Patient notes her back discomfort and muscle spasms were initially tentative 10 in severity and dull aching as well as sharp stabbing however they have significantly improved following ED interventions, currently rated 2-3 out of 10 in severity however she was unable to ambulate upon attempts in the ED. Workup in the ED included T97.6, heart rate 97, BP 103/52, respiratory rate 18, 98% on 2 L initially reported however then reported as 99% on room air, most recent repeat vitals T98.4, heart rate 86, BP 136/81, respiratory rate 19, 94% on 2 L nasal cannula, CBC with WBC 8.4, hemoglobin 9.7, MCV 87.2, platelets 304 without marked shift, BMP with BUN/creatinine 18/1.0, GFR 57, glucose 128, urinalysis with cloudy appearing urine, specific roughly 1.010, protein 30, glucose of thousand, negative ketones, 50 occult blood, leukocyte Estrace 500 with urine RBCs greaterthan 101+ urine bacteria, urine culture pending per ED, plain film of the lumbarspine with no acute fracture or malalignment, multilevel spondylitic changes similar to previous with moderate divan spinal canal and bilateral neural foraminal narrowing at L3- 4, L4-5, L5-S1, CT abdomen and pelvis with IV contrastonly with similar patchy airspace consolidation in bilateral lung bases concerning for possible aspiration component, moderate colonic stool burden withpersistent mild distention and wall thickening of the rectal vault suggestive ofchronic constipation. In the ED patient ministered Tylenol 1000 mg p.o. x 1, Valium 2 mg p.o. x 1, Toradol 15 mg IV x 1, morphine 2 mg IV x 1, [id number] mg p.o. x 1. [facility] Medical History Former smoker On home oxygen therapy Osteoporosis History of diabetes mellitus COPD exacerbation Hypoxia Elevated troponin Acute dyspnea COPD with exacerbation Anemia History of COPD Elevated brain natriuretic peptide (BNP) level Elevated troponin Acute hypoxemic respiratory failure Obesity (BMI 30.0-34.9) Elevated troponin Lactic acidosis Poor venous access Diabetic polyneuropathy Hypomagnesemia Debility Fracture of hip, left, closed Coronary artery disease Weakness Gastroenteritis Paronychia of left index finger Abscess Vaginal cyst Anxiety Depression Irregular heart beat Multiple thyroid nodules Postmenopausal bleeding Foraminal stenosis of lumbar region Lumbar spinal stenosis Diabetic retinopathy Colon polyp GERD (gastroesophageal reflux disease) Thyroid goiter Hyperlipidemia Hypokalemia Microcytic anemia Neurogenic [...] Asthma Pruritus Goiter, nontoxic, multinodular Anemia Diabetes COPD (chronic obstructive pulmonary disease) History of constipation Hx of venous thrombosis and embolism History of malignant neoplasm of breast Hypertension Type 2 diabetes mellitus Asthma Home Medications ?Medication ?Instructions ?Recorded ?Last Taken ?Type aspirin 81 mg chewable tablet 81 mg PO DAILY HEART HEA LTH 01/21/16 01/15/25 History magnesium oxide 400 mg (241.3 mg 400 mg PO BID SUPPLEM ENT 08/16/18 01/15/25 History magnesium) tablet metoprolol tartrate 25 mg tablet 25 mg PO BID BLOOD LA ESSURE 08/16/18 01/15/25 History pantoprazole 40 mg [...] Unknown Rx extended release 12 hr (Mucinex) diazepam 2 mg tablet 2 mg PO BID PRN muscle spasm #10 03/21/25 Unknown Rx TABLETS nitrofurantoin 100 mg PO Q12 #14 CAPSULES 0 03/21/25 Unknown Rx monohydrate/macrocrystals 100 mg capsule Allergy/AdvReac Type Severity Reaction Status Date / Time adhesive tape (tape) Allergy NEEDS Verified 03/21/25 13:26 FOLLOW-UP cephalexin monohydrate (From Allergy Rash Verified 03/21/25 13:26 Keflex) clopidogrel bisulfate (From Allergy Other Verified 03/21/25 13:26 Plavix) amoxicillin AdvReac YEAST Verified 03/21/25 13:26 INFECTION Family History Daughter Breast cancer Father [...] social history: [place]- retired ROS ROS Narrative Admission Review of Systems: CONSTITUTIONAL: No weight loss, fever, chills, + weakness or fatigue. HEENT: Eyes: No visual loss, blurred vision, double vision or yellow sclerae. Ears, Nose, Throat: No hearing loss, sneezing, congestion, runny nose or sore throat. SKIN: No rash or itching, lesions, wounds. CARDIOVASCULAR: No chest pain, chest pressure or chest discomfort, palpitations,edema, orthopnea, syncopal events. RESPIRATORY: No shortness of breath, cough or sputum, wheezing, hemoptysis. GASTROINTESTINAL: No anorexia, nausea, vomiting or diarrhea, abdominal pain, melena, BRBPR. GENITOURINARY: + Chronic urinary retention with self-catheterization, lower backdiscomfort. No specific recent dysuria, frequency, urgency or retention. NEUROLOGICAL: + Difficulty ambulating, general debility. No headache, dizziness, syncope, paralysis, ataxia, numbness or tingling in the extremities, focal weakness, change in bowel or bladder control, seizure. MUSCULOSKELETAL: + muscle, back pain, joint pain or stiffness. HEMATOLOGIC: + Chronic anemia, easy bleeding/bruising. LYMPHATICS: No enlarged nodes. No history of splenectomy. PSYCHIATRIC: + History of anxiety and depression. ENDOCRINOLOGIC: No reports of sweating, cold or heat intolerance. No polyuria orpolydipsia. ALLERGIES: + History of asthma, allergic rhinitis. Vital Signs Vital Signs Vital Signs: 03/21/25 13:23 03/21/25 17:22 03/21/25 21:00 Temperature 97.6 F L Temperature Source Oral Pulse Rate 97 78 86 Respiratory Rate 18 16 19 H Blood Pressure 103/52 L 134/78 H 136/81 H Blood Pressure Mean 69 96 99 Pulse Ox 98 99 94 Oxygen Delivery Method Nasal Cannula Room Air Nasal Cannula Oxygen Flow Rate (L/min) 2 2 03/21/25 22:28 Temperature 98.4 F Temperature Source Pulse Rate 86 Respiratory Rate 19 H Blood Pressure 136/81 H Blood Pressure Mean 99 Pulse Ox 94 Oxygen Delivery Method Oxygen Flow Rate (L/min) Weight Weight: 156 lb 1.396 oz Body Mass Index (BMI) 27.6 Physical Exam Narrative Physical Examination: General: Awake, alert, oriented x 3 and cooperative, laying in the bed, notes her back discomfort is significantly improved since initial ED arrival. Skin: Normal color, normal turgor, no icterus, no cyanosis except occasional stage ecchymoses, mild lichenification bilateral lower extremities. HEENT: AT/NC, EOMI, PERRLA, mildly dry MM, no carotid bruits or JVD noted. Lungs: Diminished, greater bases, mildly increased respiratory rate but no distress, no appreciated rales, ronchi or wheezing. Heart: Regular rate and rhythm; no gallop, rub audible. Abdomen: Soft, NTTP aside from mild discomfort to the suprapubic region with palpation, mildly distended with tympany, mildly hyperactive BS, no appreciated HSM. Extremities: No cyanosis, no clubbing, mild ankle to proximal jimenez chronic edema, see skin. Neurological: Patient awake, alert, oriented as noted, cognitive function intact; pupils equally reactive to light and accommodation, cranial nerves grossly normal, moving all 4 extremities, no focal deficits, strength moderatelyto severely globally decreased, unable to ambulate because of back discomfort, primarily paraspinous discomfort, no discomfort to the spine palpation itself/nostep-off. Psychiatric: Affect appears fatigued, notes back discomfort improved since initial ED arrival, no acute evidence of depressive or anxiety feelings but doeshave underlying history. Results Lab / Micro Data 03/21/25 17:55 03/21/25 17:55 Labs: Laboratory Results - last 24 hr 03/21/25 15:05: Urine Color Yellow, Urine Clarity Sl. Cloudy, Urine pH 7.0, Ur Specific Spade 1.010, Urine Protein 30 H, Urine Glucose (UA) 1000 H, Urine Ketones Negative, Urine Occult Blood 50 H, Urine Nitrite Negative, Urine Bilirubin Negative, Urine Urobilinogen Normal, Ur Leukocyte Esterase 500 H, Urine RBC 0-5 SEEN, Urine WBC >100 SEEN, Ur Squamous Epith Cells 0-5 SEEN, UrineBacteria 1+, Urine Mucus 0 SEEN, Urine Yeast 1+ 03/21/25 17:55: WBC 8.4, RBC 3.59 L, Hgb 9.7 L, Hct 31.3 L, MCV 87.2, MCH 27.0, MCHC 31.0 L, RDW Std Deviation 52.5 H, RDW Coeff of Vijay 16.4 H, Plt Count 304, MPV 11.1, Immature Gran % (Auto) 0.500, Neut % (Auto) 62.3, Lymph % (Auto) 27.1,[place] % (Auto) 8.6, Eos % (Auto) 0.8, Baso % (Auto) 0.7, Absolute Neuts (auto) 5.2, Absolute Lymphs (auto) 2.26, Nucleated RBC % 0, Sodium 137, Potassium 4.4, Chloride 98, Carbon Dioxide 26.4, Anion Gap 13, BUN 18, Creatinine 1.00, Estim Creat Clear Calc 41.62 L, Est GFR (MDRD) Non-Af 57 L, BUN/Creatinine Ratio 18.2,Glucose 128 H, Calcium 10.5 03/21/25 19:12: POC Glucose 114 H Imaging Radiology Impression Lumbar Spine CT 03/21/25 18:00 IMPRESSION: No acute fracture or malalignment. Multilevel spondylotic changes as described,similar to prior exam, with moderate-advanced spinal canal and bilateral neural foraminal narrowing at L3-4, L4-5, and L5-S1. Additional ancillary findings as noted, discussed separately in the abdominal CT report. Reading Location: [facility] Abdomen/Pelvis CT 03/21/25 18:02 IMPRESSION: 1. Similar patchy airspace consolidation in the bilateral lung bases, suggestingaspiration. 2. Moderate colonic stool burden with persistent mild distention and wall thickening of the rectal vault, suggesting chronic constipation and stercoral proctitis, although less pronounced from prior exam. 3. Multiple additional non-acute ancillary findings, as described above. Reading Location: [facility] Assessment & Plan Assessment/Plan (1) Acute UTI: PLAN: Plan The patient is an 80 y/o F w/ PMHx: Chronic neurogenic bladder with self-catheterization chronically, COPD/Asthma w/ Chronic Hypoxic Respiratory Failure,Former tobacco use, Chronic normocytic anemia/iron deficiency anemia, CKD stage III unclear subtype per GFR trending, Anxiety and Depression, Diabetes mellitus type II with chronic neuropathy, Chronic idiopathic constipation, PAD, GERD, Hx VTE (DVT, PE), Hx L sided breast CA unclear type s/p lumpectomy considered in remission who presents to the [facility] ED on 03/21/2025 with history of right-sided back spasms persistent over the last couple weeks with bowel movements daily with underlying significant chronic constipation history with ongoing self-catheterization secondary to neurogenic bladder currently living at home with her spouse with recent hospitalization for viral syndrome prompting eventual ED evaluation to be cautious. #1. Acute Intractable Back Pain on chronic with significant debility, difficulty ambulating, adult failure to thrive complicated by #2 in addition to chronic idiopathic constipation: Will admit to [facility], maintain on fall precautions,frequent positioning, will maintain on judicious short course of 5 doses of low-dose IV toradol, topical pain compound, will increase to 3 times daily low-dose gabapentin, low dose PRN tizanidine, medrol dose pack cautiously given #2 however given severity of discomfort at this point believe worth the risk, po/IVnarcotic pain regimen, anti-emetics, bowel regimen with enema x 1 as well as daily MiraLAX with adjustment further as needed to maintain appropriate bowel regimen. Will consult PT and OT for evaluation as well as Case management for discharge planning. If not clinically improving may require further more aggressive imaging. #2. Acute Complicated Urinary Tract Infection related to self-catheterization with chronic neurogenic bladder: UA upon ED evaluation remarkable, pending UCx, most recent cultures notable for Enterococcus, will judiciously hydrate, monitorI/Os, will initiate based on previous cultures on IV Levaquin w/ transition as able pending sensitivities and speciation. Will continue home straight catheterization regimen. #3. Atypical patchy airspace consolidation bilateral posteromedial lung bases: CT scan with noted similar appearance to previous patchy airspace consolidation in the bilateral posterior medial lung bases more pronounced on the left more typical than what 1 would find with dependent atelectasis with possible chronic aspiration component, speech therapy consulted patient cautious and will maintain on aspiration precautions. #4. Chronic hypoxic respiratory failure with underlying COPD/asthm with allergic rhinitis a: Will continue home oxygen supplementation, will maintain onATC DuoNeb therapy, as needed albuterol, encourage head of bed and I-S, continuehome Roflumilast regimen, continue home cetirizine regimen. #5. Chronic normocytic anemia/iron deficiency anemia: Admission hemoglobin 9.7,MCV 87.2, baseline hemoglobin primarily 9-10 range although does vacillate, willcontinue to trend, clarifying iron supplementation given noted history as currently not listed. #6. PAD: Noted chart history, will continue patient aspirin, statin, hypertensive regimen, diabetic regimen as noted. #7. Chronic Kidney Disease Stage III, unclear subtype or GFR trending: Admission BUN/Cr 18/1.0, GFR 57, baseline renal function primarily 0.9-1.2, repeat BMP in AM. #8. Diabetes mellitus type II with chronic neuropathy: Hold oral home regimen, continue home insulin regimen, ADA diet, accu checks w/ ISS. As noted above will increase to 3 times daily low-dose gabapentin regimen. #9. History of breast cancer: Patient with history of previous left breast cancer, unclear type, unclear exact interventions aside from lumpectomy, considered in remission, encouraged continued follow-up outpatient as previouslyarranged. #10. Hypertension: Continue home regimen including metoprolol, Lasix, diltiazem, PRN hydralazine. #11. Hyperlipidemia: Will continue patient home statin therapy. #12. Anxiety and depression: Per current list on a regimen, clarified to be certain, encourage continued outpatient follow-up with PCP as previously arranged. #13. Former tobacco use: Encourage continued tobacco cessation. #14. History of VTE: Patient with documented history of previous VTE, not currently chronically anticoagulated, will maintain on chemoprophylaxis as noted. #15. GERD: Will continue patient home PPI. #16. DVT prophylaxis: Lovenox. #17. CODE status: Patient MABEL is her and living will is currently in place. Discussed CODE status at length including difference between FULL code, DNR-CCA and DNR-CC status. Following discussions about the differences in these status, requested Full Code status. Advanced Care Planning Face to Face Time: 16minutes. Charges/Coding Visit Charges Inpatient E&M: 12376 Init Hosp L3 Procedures Hospitalists Procedures: 99246 Advncd Care Plan 30 Min 03/22/25 0041 <Electronically signed by Abigial Foster MD> Cosigner Signature (if applicable): CC: Dr. Abigail Foster MD; Dr. Ramone Smiley MD~ Signed [facility] Work Phone: 1(730) 142-157307-22-2025 Radiology Diagnostic study [facility]07-22-2025 Radiology Diagnostic study [facility]07-05-2025 Radiology Diagnostic study [facility] 03-04-2025 Discharge summary Author Jeevan [facility] Note Date/Time March 04, 2025 11:14 pm [facility] Medical Records Department [address] [place] [address] Emergency Department Summary 03/04/25 MR#: [id number] Acct: [id number] Name: OLGA DONALDSON Rep #:[id number] : 1945 80 From: Jeevan Yoder DO PCP: Dr. Ramone Smiley MD Status:[facility] ER Location: ED HPI History of Present [...] Patient denies any history of kidney stones. [facility] Medical History History of diabetes mellitus [...] mg tablet 25 mg PO BID BLOOD LA ESSURE 08/16/18 01/15/25 History pantoprazole 40 mg [...] following commands knew that she was at [facility] year is 2024 Skin: Warm, dry, intact [...] % (Auto) 66.1 Lymph % (Auto) 24.2 [place] % (Auto) 6.9 Eos % (Auto) 1.7 [...] Clarity Cloudy Urine pH 7.0 Ur Specific Spade 1.010 Urine Protein 100 H Urine Glucose [...] aspiration pneumonia. 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 Reading Location: [place] [address] Discharge Plan Triage Chief Complaint: Serna C/O [...] other concerns or worsening symptoms Print Language: Belizean Disposition Disposition: Home, Self Care What to do if you have Problems For any increased pain, shortness of breath, bleeding, nausea or vomiting, chestpain, or any unexpected problems, contact your Primary Care Provider. Call [facility] ([phone]) or report to the closest Emergency Room. Call 911 if necessary. 03/04/25 2314 <Electronically signed by Jeevan Yoder DO> Cosigner Signature (if applicable): CC: Dr. Ramone Smiley MD ~ Signed [facility] Work Phone: 1(309) 126-278507-02-2025 Hospital Discharge instructionsAdditional Instructions Urine with signs of infection. You had infection a few weeks ago you self cath. Take finish antibiotic prescribed. Continue your Tylenol every 6 hours. Use Valium as needed. Follow-up with your doctor.[facility] Work Phone: 1(680) 829-471106-21-2025 Radiology Diagnostic study [facility]06-21-2025 Discharge summary Author Billy Kothari [facility] Note Date/Time February 19, 2025 12:0 5am [facility] Medical Records Department [address] [place] [address] Emergency Department Summary 02/18/25 MR#: [id number] Acct: [id number] Name: OLGA DONALDSON Rep #:[id number] : 1945 80 From: Billy Kothari MD PCP: Dr. Ramone Smiley MD Status:REG ER Location: ED HPI History of Present Illness Chief Complaint: Shortness of Breath Narrative Narrative: 80-year-old female past medical history of COPD, wears 2 to 3 L of oxygen, [facility] with [facility] shortness of breath. Sherelates history that she was admitted to the hospital for breathing difficulty and was released on Thursday. This is approximately 5 days ago. [facility] only [facility]. 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 She has been taking prednisone since discharge. She presents today with increasing shortness of breath and occasional cough. No fevers or chills. [facility] Medical History History of diabetes mellitus [...] mg tablet 25 mg PO BID BLOOD LA ESSURE 08/16/18 01/15/25 History pantoprazole 40 mg [...] hence, she was admitted then [facility] in [facility]. Says that she had history of [...] on steroids and nebulizer treatments at the [facility] facility. She is motivated for discharge. Disposition [...] 78.7 H Lymph % (Auto) 12.5 L [place] % (Auto) 6.7 Eos % (Auto) 1.0 [...] evaluation. No obvious acute finding. Reading Location: [facility] Discharge Plan Triage Chief Complaint: Shortness [...] wear your nasal cannula oxygen. Print Language: Belizean Disposition Disposition: Home, Self Care What to do if you have Problems For any increased pain, shortness of breath, bleeding, nausea or vomiting, chestpain, or any unexpected problems, contact your Primary Care Provider. Call [facility] ([phone]) or report to the closest Emergency Room. Call 911 if necessary. 02/19/25 0005 <Electronically signed by Billy Kothari MD> Cosigner Signature (if applicable): CC: Dr. Ramone Smiley MD ~ Signed [facility] Work Phone: 1([phone]) 184-442406-20-2025 Discharge summary Author Heydi Amaya [facility] Note Date/Time February 17, 2025 5:15 pm [facility] Medical Records Department [address] [place] [address] Discharge Summary 02/17/25 1713 MR#: [id number] Acct: [id number] Name: OLGA DONALDSON Rep #:[id number] : 1945 80 From: Heydi Amaya MD PCP: Dr. Ramone Smiley MD Status:ADM JESS [facility] Prov[facility] Date of Admission: 02/15/25 Date of [...] 0.005 % eye drops ([facility]) 1 drp EACH EYE DAILYeye drops 01/15/25 [...] GERD, COPD, hypertension, diabetes who presented to [facility] ED 02/16/2025 with shortness of breath [...] (Auto) 86.1 H, Lymph % (Auto) 7.8L, [place] % (Auto) 5.0, Eos % (Auto) 0.1, [...] in before D/C Order can be placed): Alf Facility Charges/Coding Visit Charges Inpatient E&M: 45974 Disch Hosp 02/17/25 9125 <Electronically signed by Heydi Amaya MD> Cosigner Signature (if applicable): CC: Dr. Ramone Smiley MD; Dr. Heydi Amaya MD~ Signed [facility] Work Phone: 1(761) 959-217906-20-2025 Discharge summary Author Heydi Amaya [facility] Note Date/Time February 17, 2025 5:13 pm [facility] Medical Records Department [address] [place] [address] Transfer to [facility] MR#: [id number] Acct: [id number] Name: OLGA DONALDSON Rep #:[id number] : 1945 80 From: Heydi Amaya MD [...] SERVICES PRIOR TO HIS/HER TRANSFER TO [facility]. 02/17/25 9873<Electronically signed by Heydi Amaya MD> Diet Diet [...] GERD, COPD, hypertension, diabetes who presented to [facility] ED 02/16/2025 with shortness of breath [...] in before D/C Order can be placed): Alf Facility 02/17/25 1713 <Electronically signed by Heydi Amaya MD> Cosigner Signature (if applicable): CC: Dr. Nestor Bartlett DO; Dr. Ramone Smiley MD ~ [facility] Work Phone: 1(407) 932-501406-20-2025 [facility]06-19-2025 Progress note Author Heydi Amaya [facility] Note Date/Time February 16, 2025 4:45 pm [facility] Medical Records Department [address] [place] [address] Progress Note - Hospitalist 02/16/2529 MR#: [id number] Acct: [id number] Name: OLGA DONALDSON Rep #:[id number] : 1945 80 From: Heydi Amaya MD PCP: Dr. Ramone Smiley MD Status:ADM JESS Location: [place] [address] Reason for Visit Reason for Visit: Diagnoses [...] 82.5 H, Lymph % (Auto) 10.9 L, [place] % (Auto) 4.8, Eos % (Auto) 0.7, [...] evidence of acute cardiopulmonary process. Reading Location: COUNTS INCLUDE 234 BEDS AT THE [facility] Physical Exam Narrative General: Alert, oriented, [...] GERD, COPD, hypertension, diabetes who presented to [facility] ED 02/16/2025 with shortness of breath [...] Amaya MD Charges/Coding Visit Charges Inpatient E&M: 88377 Subs Hosp L2 02/16/25 4463 <Electronically signed by Heydi Amaya MD> Cosigner Signature (if applicable): CC: ~ Signed [facility] Work Phone: 1(680) 273-155106-18-2025 Discharge summary Author Robert Allison [facility] Note Date/Time February 15, 2025 3:14 pm [facility] Medical Records Department [address] [place] [address] Emergency Department Summary 02/15/25 MR#: [id number] Acct: [id number] Name: OLGA DONALDSON Rep #:[id number] : 1945 80 From: Robert Allison DO PCP: Dr. Ramone Smiley MD Status:ADM JESS Location: [place] [address] HPI History of Present Illness Chief Complaint: [...] a cough. Denies fever or chest pain. [facility] Medical History (Updated 02/15/25 @ 13:15 [...] mg tablet 25 mg PO BID BLOOD LA ESSURE 08/16/18 01/15/25 History pantoprazole 40 mg [...] and faint expiratory wheezes. Mild tachypnea. No burning supervisor muscles or retractions Effort and Inspection: Negative [...] chronically has this type of elevation. 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 warm in worker saw patient and asked that we [...] 82.5 H Lymph % (Auto) 10.9 L [place] % (Auto) 4.8 Eos % (Auto) 0.7 [...] evidence of acute cardiopulmonary process. [facility] view chest x-ray obtained interpreted myself [...] Care Provider] - 3-5 Days Print Language: Belizean Disposition Disposition: Acute Care Hospital [facility] What to do if you have Problems For any increased pain, shortness of breath, bleeding, nausea or vomiting, chestpain, or any unexpected problems, contact your Primary Care Provider. Call [facility] ([phone]) or report to the closest Emergency Room. Call 911 if necessary. 02/15/25 3725 <Electronically signed by Robert Allison DO> Cosigner Signature (if applicable): CC: Dr. Ramone Smiley MD ~ Signed [facility] Work Phone: 1(441) 547-767406-18-2025 History and physical note Author Nestor Bartlett [facility] Note Date/Time February 15, 2025 2:57 pm [facility] Medical Records Department [address] [place] [address] H&P Exam - Hospitalist 02/15/25 1401 MR#: [id number] Acct: [id number] Name: OLGA DONALDSON Rep #:[id number] : 1945 80 From: Nestor roman DO PCP: Dr. Ramone Smiley MD Status:ADM JESS Location: [place] [address] HPI - General General Date of Admission: 02/15/25 Date of Service: 02/15/25 Chief Complaint: Shortness of breath, acute on chronic debility HPI Narrative OLGA DONALDSON, is a 80 F who presented to [facility] ED on 02/15/2025 with shortness of [...] currently. Will be admitted for further management. [facility] Medical History (Updated 02/15/25 @ 13:15 [...] mg tablet 25 mg PO BID BLOOD LA ESSURE 08/16/18 01/15/25 History pantoprazole 40 mg [...] 01/15/25 01/15/25 History 0.005 % [facility] psyllium husk 0.4 gram capsule 0.4 g [...] 82.5 H, Lymph % (Auto) 10.9 L, [place] % (Auto) 4.8, Eos % (Auto) 0.7, [...] evidence of acute cardiopulmonary process. Reading Location[facility] Assessment & Plan Assessment/Plan (1) Generalized weakness: PLAN: Plan Patient is an 80-year-old female who presented [facility] ED on 02/15/2025 with recurrent shortness of breath and acute on chronic debility. 1. Acute on chronic debility ? Admit under observation status to [facility]. PT/OT/case management consulted. Multiple recent hospitalizations [...] 75 minutes. Charges/Coding Visit Charges Inpatient E&M: 16908 Init Hosp L3 02/15/25 1457 <Electronically signed by Nestor Bartlett DO> Cosigner Signature (if applicable): CC: Dr. Nestor Bartlett DO; Dr. Ramone Smiley MD~ Signed [facility] Work Phone: 1(129) 438-462806-18-2025 Radiology Diagnostic study [facility]06-16-2025 Discharge summary Author Lucio Borden [facility] Note Date/Time February 13, 2025 2:22 pm [facility] Medical Records Department [address] [place] [address] Instructions for Home/Discharge Instructions 02/13/25 1415 MR#: [id number] Acct: [id number] Name: OLGA DONALDSON Rep #:[id number] : 1945 80 From: Lucio Borden DO [...] CC: Dr. Ramone Smiley MD ~ Signed [facility] Work Phone: 1(431) 611-698606-16-2025 [facility]06-15-2025 Progress note Author [facility] Note Date/Time February 12, 2025 11:2 5am [facility] Medical Records Department [address] [place] [address] Progress Note - Hospitalist 02/12/25 1123 MR#: [id number] Acct: [id number] Name: OLGA DONALDSON Rep #:[id number] : 1945 80 From: Lucio Borden DO PCP: Dr. Ramone Smiley MD Status:ADM IN [facility] Reason for Visit Reason for Visit: Diagnoses [...] 35- minutes Charges/Coding Visit Charges Inpatient E&M: 23966 Subs Hosp L2 02/12/25 1125 <Electronically signed by Lucio Borden DO> Cosigner Signature (if applicable): CC: ~ Signed [facility] Work Phone: 1(221) 414-227306-14-2025 Progress note Author [facility] Note Date/Time February 11, 2025 4:29 pm [facility] Medical Records Department [address] [place] [address] Progress Note - Hospitalist 02/11/25 1621 MR#: [id number] Acct: [id number] Name: OLGA DONALDSON Rep #:[id number] : 1945 80 From: Lucio Borden DO PCP: Dr. Ramone Smiley MD Status:ADM IN [facility] Reason for Visit Reason for Visit: Diagnoses [...] 35- minutes Charges/Coding Visit Charges Inpatient E&M: 21006 Subs Hosp L2 02/11/25 1625 <Electronically signed by Lucio Borden DO> Cosigner Signature (if applicable): CC: ~ Signed [facility] Work Phone: 1(589) 817-700206-13-2025 Progress note Author [facility] Note Date/Time February 10, 2025 5:29 pm [facility] Medical Records Department [address] [place] [address] Progress Note - Hospitalist 02/10/25 1720 MR#: [id number] Acct: [id number] Name: OLGA DONALDSON Rep #:[id number] : 1945 80 From: Lucio Borden DO PCP: Dr. Ramone Smiley MD Status:ADM IN [facility] Reason for Visit Reason for Visit: Diagnoses [...] 35- minutes Charges/Coding Visit Charges Inpatient E&M: 03362 Subs Hosp L2 02/10/25 1729 <Electronically signed by Lucio Borden DO> Cosigner Signature (if applicable): CC: ~ Signed [facility] Work Phone: 1(242) 415-991206-12-2025 History and physical note Author Tono Gomez [facility] Note Date/Time February 09, 2025 7:17 pm [facility] Medical Records Department [address] [place] [address] H&P Exam - Hospitalist 02/09/25 1525 MR#: [id number] Acct: [id number] Name: OLGA DONALDSON Rep #:[id number] : 1945 80 From: Tono BHATTI PCP: Dr. Ramone Smiley MD Status:ADM IN [place] [facility] [place] HPI - General General Date of Service: [...] tightness, no dizziness or lightheadedness, no palpitations. [facility] Medical History COPD with exacerbation Anemia [...] mg tablet 25 mg PO BID BLOOD LA ESSURE 08/16/18 01/15/25 History pantoprazole 40 mg [...] (Auto) 86.9 H, Lymph % (Auto) 7.3L, [place] % (Auto) 4.5, Eos % (Auto) 0.1, [...] degree of bibasilar linear atelectasis. Reading Location: [facility] Assessment & Plan Assessment/Plan (1) COPD [...] assessment and findings. Visit Charges Inpatient E&M: 29764 Init Hosp L2 02/09/251916<Electronically signed by Lucio Borden DO> Cosigner Signature (if applicable): cc: DAVY Dykes; Dr. Ramone Smiley MD; Dr. Lucio Borden DO ~* Signed [facility] Work Phone: 1(292) 889-115706-12-2025 Discharge summary Author Jeremiah Corrales [facility] Note Date/Time February 09, 2025 2:57 pm [facility] Medical Records Department [address] [place] [address] Emergency Department Summary 02/09/25 MR#: [id number] Acct: [id number] Name: OLGA DONALDSON Rep #:[id number] : 1945 80 From: Jeremiah Corrales MD [...] Prior similar symptoms: Yes Recent Illness/Hospitalization: Yes [facility] Medical History COPD with exacerbation Anemia [...] mg tablet 25 mg PO BID BLOOD LA ESSURE 08/16/18 01/15/25 History pantoprazole 40 mg [...] 01/15/25 01/15/25 History 0.005 % eye drops ([facility]) psyllium husk 0.4 gram capsule 0.4 g [...] 86.9 H Lymph % (Auto) 7.3 L [place] % (Auto) 4.5 Eos % (Auto) 0.1 [...] degree of bibasilar linear atelectasis. Reading Location: [facility] Chest x-ray, 2 views, interpreted by [...] rhythm rate of 93 no acute signs CO or ischemia. Patient does have inverted T waves in V4 5 and 6 slight change from prior EKG from February 04. Prior EKG tracings: available for review Prior: Changed Discharge Plan Dx/Rx/DC Orders Clinical Impression: Acute dyspnea, Elevated troponin, Hypoxia, COPD exacerbation, History of diabetes mellitus Disposition Disposition: Acute Care Hospital [facility] What to do if you have Problems For any increased pain, shortness of breath, bleeding, nausea or vomiting, chestpain, or any unexpected problems, contact your Primary Care Provider. Call [facility] ([phone]) or report to the closest Emergency Room. Call 911 if necessary. 02/09/25 1457 <Electronically signed by Jeremiah Corrales MD> Cosigner Signature (if applicable): CC: Dr. Ramone Smiley MD ~ Signed [facility] Work Phone: 1(512) 945-868106-12-2025 Radiology Diagnostic study [facility]06-09-2025 Discharge summary Author Lucio Borden [facility] Note Date/Time February 06, 2025 2:01p [facility] Medical Records Department [address] [facility] [place] [address] Instructions for Home/Discharge Instructions 02/06/25 1351 MR#: [id number] Acct: [id number] Name: OLGA DONALDSON Rep #:[id number] : 1945 80 From: Lucio Borden DO [...] CC: Dr. Ramone Smiley MD ~ Signed [facility] Work Phone: 1(340) 201-133006-09-2025 [facility]06-08-2025 Progress note Author [facility] Note Date/Time February 05, 2025 2:48p m [facility] Medical Records Department [address] [place] [address] Progress Note - Hospitalist 02/05/25 1442 MR#: [id number] Acct: [id number] Name: OLGA DONALDSON Rep #:[id number] : 1945 80 From: Lucio Borden DO PCP: Dr. Ramone Smiley MD Status:ADM IN Location: [facility] HZV120- 1 Subjective Subjective Patient was seen and [...] not believe the patient has had an CO #4 type 2 diabetes-blood sugars will be [...] 35 minutes Charges/Coding Visit Charges Inpatient E&M: 31099 Subs Hosp L2 02/05/25 1448 <Electronically signed by Lucio Borden DO> Cosigner Signature (if applicable): CC: ~ Signed [facility] Work Phone: 1(187) 481-209906-07-2025 Discharge summary Author Aj Holley [facility] Note Date/Time February 04, 2025 10:27 am [facility] Medical Records Department [address] [place] [address] Emergency Department Summary 02/04/25 MR#: [id number] Acct: [id number] Name: OLGA DONALDSON Rep #:[id number] : 1945 80 From: Aj Holley MD [...] of the couch, and has no pain. [facility] Medical History Elevated troponin Coronary artery [...] mg tablet 25 mg PO BID BLOOD LA ESSURE 08/16/18 01/15/25 History pantoprazole 40 mg [...] U nknown History subcutaneous pen injector ([facility]untrisharo) furosemide 40 mg tablet 40 mg PO [...] (Reviewed 01/31/25 @ 16:15 by Whitney Cao FRONT END DEVELOPER DESIGNER, FRONT END DEVELOPER DESIGNER-C) Daughter Breast cancer Father Hypertension Sister Cancer [...] 75.4 H Lymph % (Auto) 15.7 L [place] % (Auto) 6.6 Eos % (Auto) 1.7 [...] MD [Primary Care Provider] - Print Language: Bel[place]an What to do if you have Problems For any increased pain, shortness of breath, bleeding, nausea or vomiting, chestpain, or any unexpected problems, contact your Primary Care Provider. Call [facility] ([phone]) or report to the closest Emergency Room. [...] 11.8 and 37.9. White count slightly elevated Hersey 0.2 thousand. There is slight shift with [...] cc: Dr. Ramone Smiley MD ~* Signed [facility] Work Phone: 1(250) 539-703106-07-2025 Radiology Diagnostic study [facility]06-07-2025 Radiology Diagnostic study [facility]05-29-2025 Radiology Diagnostic study [facility] 01-24-2025 [facility]05-26-2025 Progress note Author Becca Silverman [facility] Note Date/Time January 23, 2025 3:40p m [facility] Medical Records Department [address] [place] [address] Progress Note - Cardiology 01/23/25 1528 MR#: [id number] Acct: [id number] Name: OLGA DONALDSON Rep #:[id number] : 1945 80 From: Becca Silverman MD PCP: Dr. Ramone Smiley MD Status:ADM IN Location: [place] [address] Subjective Subjective Seen and evaluated at bedside [...] Intake and Output for Last 24 Hours 05/24/25 05/25/25 05/26/25 23:59 23:59 23:59 Intake Total 940 / [...] (Auto) 90.8 H, Lymph % (Auto) 6.2L, [place] % (Auto) 2.7, Eos % (Auto) 0.0, [...] (Auto)90.8 H, Lymph % (Auto) 6.2 L, [place] % (Auto) 2.7, Eos % (Auto) 0.0, [...] up an appointment to be seen by christmas tree farmer as an outpatient and discussed further plan possible Lexiscan sestamibi and based on results of Lexiscan sestamibi to consider further evaluation. To minimize risk of contrast-induced nephropathy. Becca Silverman MD,[facility] 01/23/25 1540 <Electronically signed by Becca Silverman MD> Cosigner Signature (if applicable): CC: ~ Signed [facility] Work Phone: 1(271) 123-385305-26-2025 Progress note Author Melba [facility] Note Date/Time January 23, 2025 2:43p m [facility] Medical Records Department [address] [place] [address] Progress Note 01/23/25 1037 MR#: [id number] Acct: [id number] Name: OLGA DONALDSON Rep #:[id number] : 1945 80 From: Melba Hartmann MD PCP: Dr. Ramone Smiley MD Status:ADM IN Location: [place] [address] Subjective Subjective Patient seen and examined. She [...] (Auto) 90.8 H, Lymph % (Auto) 6.2L, [place] % (Auto) 2.7, Eos % (Auto) 0.0, [...] These were held * on ISS. Accuchecks [facility]. * on gabapentin * #History of left sided breast cancer: s/p lumpectomy in 2003. #History of multinodular goiter. stable #Glaucoma: on netarsudil-latanoprost eye drops. #History of neurogenic bladder: stable #GERD: On PPI #DVT prophylaxis: Heparin Charges/Coding Visit Charges Inpatient E&M: 68812 Subs Hosp L2 01/23/25 1593 <Electronically signed by Melba Hartmann MD> Melba Hartmann MD Cosigner Signature (if applicable): CC: ~ Signed [facility] Work Phone: 1(132) 342-433905-25-2025 Progress note Author [facility] Note Date/Time January 22, 2025 2:00p m [facility] Medical Records Department [address] [place] [address] Progress Note 05/25/25 0949 MR#: [id number] Acct: [id number] Name: OLGA DONALDSON Rep #:[id number] : 1945 80 From: Melba Hartmann MD PCP: Dr. Ramone Smiley MD Status:ADM IN Location: [place] [address] Subjective Subjective Patient seen and examined this [...] 91.4 H, Lymph % (Auto) 5.7 L, [place] % (Auto) 2.4, Eos % (Auto) 0.0, [...] to PCU Charges/Coding Visit Charges Inpatient E&M: 06691 Subs Hosp L2 01/22/25 1242 <Electronically signed by Melba Hartmann MD> Melba Hartmann MD Cosigner Signature (if applicable): CC: ~ Signed ADDENDUM by Dr. Melba Hartmann MD on 01/22/25 at 1400 Addendum 1:30pm Patient's son Ursula Lees Jr called on the phone ([phone]) and updated about his mother's condition. 01/22/25 1400 <Electronically signed by Melba vivas MD> Date _ Melba Hartmann MD Cosigner Signature (if applicable): Date cc: ~* Signed [facility] Work Phone: 1(647) 659-156305-24-2025 Progress note Author Melba Hartmann [facility] Note Date/Time January 21, 2025 2:07p [facility] Medical Records Department [address] [facility] [place] [address] Progress Note 01/21/25 1039 MR#: [id number] Acct: [id number] Name: OLGA DONALDSON Rep #:[id number] : 1945 80 From: Melba Hartmann MD [...] 88.4 H, Lymph % (Auto) 7.7 L, [place] % (Auto) 3.5, Eos % (Auto) 0.0, [...] H, Calcium 9.8, [place] [address] H 01/21/25 08:06: POC Glucose 202 H [...] noted. Cardiomegaly. No pericardial effusion. Reading Location: [id number] Echocardiogram 01/20/25 04:12 Interpretation Summary Mildly dilated left ventricle. The estimated ejection fraction is 35-40 %. There is evidence of diastolic dysfunction. There is moderate global hypokinesis of the left ventricle. Trivial mitral valve insufficiency. Mild aortic stenosis. Trivial aortic valve insufficiency. Ordering Physician: Sandeep Carlton Referring Physician: Ramone Smiley Performed By: Margot Cleary, RDCS, RVT Chest X-Ray 01/21/25 05:55 IMPRESSION: New appearing pgjg-es-hlpivyhb ill-defined perihilar opacity at the left upper lobe may represent developing infiltrate or less likely an asymmetric edema pattern. Bilateral medial retrocardiac lower lobe streaky opacities not significantly changed. No pleural effusions identified. Reading Location: [facility] Physical Exam Const [...] prophylaxis: Heparin Charges/Coding Visit Charges Inpatient E&M: 11053 Subs Hosp L2 01/21/25 9286 <Electronically signed by Melba Hartmann MD> Melba Bachignrichar Signature (if applicable): CC: ~ Signed [facility] Work Phone: 1(757) 847-738005-24-2025 Radiology Diagnostic study [facility]05-23-2025 Progress note Author Lucio Borden [facility] Note Date/Time January 20, 2025 4:58p m [facility] Medical Records Department [address] [place] [address] Progress Note - Hospitalist 01/20/25 1657 MR#: [id number] Acct: [id number] Name: OLGA DONALDSON Rep #:[id number] : 1945 80 From: Lucio Borden DO PCP: Dr. Ramone Smiley MD Status:ADM IN Location: [place] [address] Hospitalist Note Patient continues to have respiratory [...] Cosigner Signature (if applicable): CC: ~ Signed [facility] Work Phone: 1(425) 361-643205-23-2025 Progress note Author [facility]io [facility] Note Date/Time January 20, 2025 11:20 am [facility] Medical Records Department [address] [place] [address] Progress Note - Hospitalist 01/20/25 1119 MR#: [id number] Acct: [id number] Name: OLGA DONALDSON Rep #:[id number] : 1945 80 From: Lucio Borden DO PCP: Dr. Ramone Smiley MD Status:ADM IN Location: [place] [address] Hospitalist Note Patient was seen and examined today, made the decision to change the patient to Airvo, patient was admitted for suspected right lower lobe pneumonia and exacerbation of COPD, she remained on aerosol treatments, IV Solu-Medrol, and IVlevofloxacin. 01/20/25 1120 <Electronically signed by Lucio Borden DO> Cosigner Signature (if applicable): CC: ~ Signed [facility] Work Phone: 1(633) 396-301605-23-2025 History and physical note Author Sandeep Marie [facility] Note Date/Time January 20, 2025 6:06a m [facility] Medical Records Department [address] [place] [address] H&P Exam - Hospitalist 01/20/25 0241 MR#: [id number] Acct: [id number] Name: OLGA DONALDSON Rep #:[id number] : 1945 80 From: Sandeep Dukes DO PCP: Dr. Ramone Smiley MD Status:ADM IN Location: [place] [address] HPI - General General Date of Admission: [...] stenosis of lumbar region who presents to [facility] ER complaining of shortness of breath. [...] is expected to extend beyond 2 midnights. [facility] Medical History Fracture of hip, left, [...] mg tablet 25 mg PO BID BLOOD LA ESSURE 08/16/18 01/15/25 History pantoprazole 40 mg [...] Neut % (Auto) 58.4, Lymph % (Auto) 32.0,[place] % (Auto) 7.7, Eos % (Auto) 0.8, [...] Clarity Clear, Urine pH 6.0, Ur Specific Spade 1.010, Urine Protein 100 H, Urine Glucose [...] noted. Cardiomegaly. No pericardial effusion. Reading Location: [id number] Assessment & Plan Assessment/Plan (1) Pneumonia: QUALIFIERS: [...] twice daily. Give acetaminophen as needed for unta-tw-xcirzzlw (level 1-5/10) pain or fever. Give morphine [...] responsive hypotension Charges/Coding Visit Charges Inpatient E&M: 18205 Init Hosp L3 01/20/25 0606 <Electronically signed by Sandeep Carlton DO> Cosigner Signature (if applicable): CC: Dr. Sandeep Carlton DO; Dr. Ramone Smiley MD~ Signed [facility] Work Phone: 1(159) [phone] Evaluation note* Diagnosis Onset Date Resolution Status [...] 2024 3:32am Hypertension chronic January 20 3:32am [facility] Work Phone: 1(696) 761-755105-23-2025 Evaluation note* Diagnosis Onset Date Resolution Status [...] 20, 2025 3:32am Obesity (BMI 30.0-34.9) inactive [facility] 2024 3:32am Aortic stenosis acute January 31, [...] diabetes mellitus chronic February 04, 2025 10:52am [facility] Work Phone: 1(930) 226-892105-23-2025 Evaluation note* Diagnosis Onset Date Resolution Status [...] 20, 2025 3:32am Obesity (BMI 30.0-34.9) inactive [facility] 2024 3:32am Aortic stenosis acute January 31, [...] diabetes mellitus chronic February 04, 2025 10:52am [facility] Work Phone: 1(667) 513-326205-23-2025 Evaluation note* Diagnosis Onset Date Resolution Status [...] 20, 2025 3:32am Obesity (BMI 30.0-34.9) inactive [facility] 2024 3:32am Aortic stenosis acute January 31, [...] failure remov ed February 09, 2025 3:00pm [facility] Work Phone: 1([phone]) 222-731905-23-2025 Evaluation note* Diagnosis Onset Date Resolution Status [...] 2025 1:42pm Hypertension chronic January 31 1:42pm [facility] Work Phone: 1([phone]) [phone] Evaluation note* Diagnosis Onset Date Resolution Status [...] failure remov ed February 09, 2025 3:00pm [facility] Work Phone: 1(782) [phone] Evaluation note* Diagnosis Onset Date Resolution Status [...] Generalized weakness inactive February 15, 2025 2:01pm [facility] Work Phone: 1(985) 616-185805-23-2025 Evaluation note* Diagnosis Onset Date Resolution Status [...] Generalized weakness inactive February 15, 2025 2:01pm [facility] Work Phone: 1(514) 311-960805-23-2025 Evaluation note* Diagnosis Onset Date Resolution Status [...] Generalized weakness inactive February 15, 2025 2:01pm Acute UTI acute March 21 11:03pm Back muscle spasm acute March 212024 11:03pm [facility] Work Phone: 1(696) [phone] Evaluation note* Diagnosis Onset Date Resolution Status [...] 04, 2025 10:52am COPD with exacerbation inactive Ju 2024 10:52am Elevated brain natriuretic peptide (BNP) [...] Generalized weakness inactive February 15, 2025 2:01pm Acute UTI acute March 21 11:03pm Back muscle spasm acute March 212024 11:03pm Debility acute March 21 11:03pm COPD exacerbation chronic March 212024 11:03pm [facility] Work Phone: 1([phone]) 164-136205-23-2025 Discharge summary Author Jeevan Yoder [facility] Note Date/Time January 20, 2025 2:43a m [facility] Medical Records Department [address] [place] [address] Emergency Department Summary 01/20/25 MR#: [id number] Acct: [id number] Name: OLGA DONALDSON Rep #:[id number] : 1945 80 From: Jeevan Yoder DO [...] has had progressive worsening shortness of breath. [facility] Medical History Fracture of hip, left, [...] mg tablet 25 mg PO BID BLOOD LA ESSURE 08/16/18 01/15/25 History pantoprazole 40 mg [...] % (Auto) 58.4 Lymph % (Auto) 32.0 [place] % (Auto) 7.7 Eos % (Auto) 0.8 [...] Clarity Clear Urine pH 6.0 Ur Specific Spade 1.010 Urine Protein 100 H Urine Glucose [...] noted. Cardiomegaly. No pericardial effusion. Reading Location: [id number] Discharge Plan Triage Chief Complaint: Shortness of [...] MD [Primary Care Provider] - Print Language: Belizean What to do if you have Problems For any increased pain, shortness of breath, bleeding, nausea or vomiting, chestpain, or any unexpected problems, contact your Primary Care Provider. Call [facility] ([phone]) or report to the closest Emergency Room. Call 911 if necessary. 01/20/25 2861 <Electronically signed by Jeevan Yoder DO> Cosigner Signature (if applicable): CC: Dr. Ramone Smiley MD ~ Signed [facility] Work Phone: 1(331) [phone] Radiology Diagnostic study [facility]05-18-2025 Discharge summary [facility] Medical Records Department [address] [place] [address] Emergency Department Summary 01/15/25 MR#: [id number] Acct: [id number] Name: OLGA DONALDSON Rep #:[id number] : 1945 80 From: Jeevan Yoder DO [...] of the antibiotic that was placed on. [facility] Medical History Fracture of hip, left, [...] mg tablet 25 mg PO BID BLOOD LA ESSURE 08/16/18 01/15/25 History pantoprazole 40 mg [...] Std Deviation 50.8 H RDW Coeff of Vjiay 16.3 H Plt Count 256 MPV 10.5 Immature Gran % (Auto) 0.400 Neut % (Auto) 72.7 H Lymph % (Auto) 18.1 L [place] % (Auto) 6.9 Eos % (Auto) 1.6 [...] IMPRESSION: Cardiomegaly with mild congestion. Reading Location: [facility] Discharge Plan Triage Chief Complaint: [...] with worsening symptoms or concerns. Print Language: Bel[place]an Disposition Disposition: Home, Self Care What to do if you have Problems For any increased pain, shortness of breath, bleeding, nausea or vomiting, chestpain, or any unexpected problems, contact your Primary Care Provider. Call [facility] ([phone]) or report tothe closest Emergency Room. Call 911 if necessary. 01/15/25 184 Cosigner Signature (if applicable): CC: Dr. Ramone Smiley MD ~ Signed [facility]05-18-2025 Radiology Diagnostic study note [facility] Imaging Services [address] [place], [place] [address] Chest PA and Lateral MR#: [id number] Acct: [id number] Name: OLGA DONALDSON Rep #: [id number] : 1945 F 80 From: Kary Suarez MD PCP: Dr. Ramone Smiley MD Status: REG ER Study:Chest PA and Lateral Date of Exam: 01/15/25 Exam# [id number] Ordering Dr: Yoly Yoder DO EXAM: XR Chest, 2 Views CLINICAL INDICATION: CHEST PAIN TECHNIQUE: Frontal and lateral views of the chest. COMPARISON: No relevant prior studies available. FINDINGS: LUNGS AND PLEURAL SPACES: See below. HEART: Cardiomegaly with mild congestion. MEDIASTINUM: Unremarkable. Normal mediastinal contour. BONES/JOINTS: Unremarkable. No acute fracture. RAD/Chest PA and Lateral IMPRESSION: Cardiomegaly with mild congestion. Reading Location: [facility] CC: Dr. Ramone Smiley MD; Dr. Jeevan Yoder DO ~ Training Development Manager: Signed [facility]05-18-2025 Discharge summary Author Jeevan Yoder [facility] Note Date/Time January 15, 2025 6:45p m [facility] Medical Records Department [address] [place] [address] Emergency Department Summary 01/15/25 MR#: [id number] Acct: [id number] Name: OLGA DONALDSON Rep #:[id number] : 1945 80 From: Jeevan Yoder DO [...] of the antibiotic that was placed on. [facility] Medical History Fracture of hip, left, [...] mg tablet 25 mg PO BID BLOOD LA ESSURE 08/16/18 01/15/25 History pantoprazole 40 mg [...] 72.7 H Lymph % (Auto) 18.1 L [place] % (Auto) 6.9 Eos % (Auto) 1.6 [...] IMPRESSION: Cardiomegaly with mild congestion. Reading Location: [facility] Discharge Plan Triage Chief Complaint: Shortness of [...] with worsening symptoms or concerns. Print Language: Belizean Disposition Disposition: Home, Self Care What to do if you have Problems For any increased pain, shortness of breath, bleeding, nausea or vomiting, chestpain, or any unexpected problems, contact your Primary Care Provider. Call [facility] ([phone]) or report to the closest Emergency Room. Call 911 if necessary. 01/15/251844 <Electronically signed by Jeevan Yoder DO> Cosigner Signature (if applicable): CC: Dr. Ramone Smiley MD ~ Signed [facility] Work Phone: 1(649) 983-610705-10-2025 Discharge summary [facility] Medical Records Department [address] [place] [address] Emergency Department Summary 01/07/25 MR#: [id number] Acct: [id number] Name: OLGA DONALDSON Rep #:[id number] : 1945 80 From: Ethan Casanova PCP: [...] mg tablet 25 mg PO BID BLOOD LA ESSURE 08/16/18 08/12/23 History pantoprazole 40 mg [...] clinician: N/A This note was generated with [employer] dictation software. It may contain incorrectwords, spelling, [...] % (Auto) 58.0 Lymph % (Auto) 31.8 [place] % (Auto) 7.6 Eos % (Auto) 1.9 [...] IMPRESSION: Cardiomegaly without overt failure. Reading Location: [facility] Discharge Plan Triage Chief Complaint: Shortness of Breath ED Provider: Ethan Suarez Dx/Rx/DC Orders Clinical Impression: Acute exacerbation of [...] steroids is tomorrow. This was sent to [facility]. Print Language: Belizean Disposition Disposition: Home, Self Care What to do if you have Problems For any increased pain, shortness of breath, bleeding, nausea or vomiting, chestpain, or any unexpected problems, contact your Primary Care Provider. Call [facility] ([phone]) or report tothe closest Emergency Room. Call 911 if necessary. 01/07/25 1700 Cosigner Signature (if applicable): CC: Dr. Ramone Smiley MD ~ Signed [facility]05-10-2025 Radiology Diagnostic study note [facility] Imaging Services [address] [place] [address] Chest PA and Lateral MR#: [id number] Acct: [id number] Name: OLGA DONALDSON Rep #: [id number] : 1945 F 80 From: Kary Suarez MD PCP: Dr. Ramone Smiley MD Status: PRE ER Study:Chest PA and Lateral Date of Exam: 01/07/25 Exam# [id number] Ordering Dr: Ethan Suarez DO EXAM: XR Chest, 2 Views CLINICAL INDICATION: COUGH TECHNIQUE: Frontal and lateral views of the chest. COMPARISON: No relevant prior studies available. FINDINGS: LUNGS AND PLEURAL SPACES: Unremarkable. No consolidation. No pneumothorax. HEART: Cardiomegaly without overt failure. MEDIASTINUM: Unremarkable. Normal mediastinal contour. BONES/JOINTS: Unremarkable. No acute fracture. RAD/Chest PA and Lateral IMPRESSION: Cardiomegaly without overt failure. Reading Location: [facility] CC: Dr. Ramone Smiley MD; Dr. Ethan Suarez DO ~ Training Development Manager: Signed [facility]05-10-2025 Discharge summary Author Ethan Suarez [facility] Note Date/Time January 07, 2025 5:00p m [facility] Medical Records Department [address] [place] [address] Emergency Department Summary 01/07/25 MR#: [id number] Acct: [id number] Name: OLGA DONALDSON Rep #:[id number] : 1945 80 From: Ethan Casanova PCP: [...] mg tablet 25 mg PO BID BLOOD LA ESSURE 08/16/18 08/12/23 History pantoprazole 40 mg [...] clinician: N/A This note was generated with [employer] dictation software. It may contain incorrectwords, spelling, [...] % (Auto) 58.0 Lymph % (Auto) 31.8 [place] % (Auto) 7.6 Eos % (Auto) 1.9 [...] IMPRESSION: Cardiomegaly without overt failure. Reading Location: [facility] Discharge Plan Triage Chief Complaint: Shortness of Breath ED Provider: Ethan Suarez Dx/Rx/DC Orders Clinical Impression: Acute exacerbation of [...] steroids is tomorrow. This was sent to [facility]. Print Language: Belizean Disposition Disposition: Home, Self Care What to do if you have Problems For any increased pain, shortness of breath, bleeding, nausea or vomiting, chestpain, or any unexpected problems, contact your Primary Care Provider. Call [facility] ([phone]) or report to the closest Emergency Room. Call 911 if necessary. 01/07/25 1700 <Electronically signed by Ethan Casanova> Cosigner Signature (if applicable): CC: Dr. Ramone Smiley MD ~ Signed [facility] Work Phone: 1(156) 954-770605-01-2024 Progress note Author [facility] December 30, 2023 12:34pm Note Date/Time December 30, 2023 12:35p [facility] Medical Records Department [address] [place] [address] Progress Note - Hospitalist 12/30/23 1228 MR#: [id number] Acct: [id number] Name: OLGA DONALDSON Rep #:[id number] : 1945 78 From: Sunny Blue PCP: Dr. Ramone Smiley MD Status:ADM IN Location: [place] [address] Reason for Visit Reason for Visit: Diagnoses [...] % (Auto) 63.9, Lymph % (Auto) 25.3, [place] % (Auto) 8.7, Eos % (Auto) 1.4, [...] Patient is a 78-year-old female who presented [facility] ED on 12/27/2023 with left hip pain after a fall at home. She got up from the couch toself catheter, got her walker turned and then lost balance and fell on her left hip. 1. Acute debility due to left impacted transcervical femoral neck fracture. ? Admit under inpatient status to [facility]. Orthopedics consulted. N.p.o. at midnight. PT/OT/case [...] cousin over the phone who lives in [place]. Patient is clinically doing well. Currently has [...] disposition: TBD Charges/Coding Visit Charges Inpatient E&M: 71888 Subs Hosp L2 12/30/23 1234 <Electronically signed by Sunny Bell MD> Cosigner Signature (if applicable): CC: ~ Signed [facility] Work Phone: 1(625) 581-431204-30-2024 Progress note Author Sunny Bell [facility] December 29, 2023 12:47pm Note Date/Time December 29, 2023 9:3 0am [facility] Medical Records Department [address] [place] [address] Progress Note - Hospitalist 12/29/23 0929 MR#: [id number] Acct: [id number] Name: OLGA DONALDSON Rep #:[id number] : 1945 78 From: Sunny Blue PCP: Dr. Ramone Smiley MD Status:ADM IN Location: [place] [address] Reason for Visit Reason for Visit: Diagnoses [...] (Auto) 81.1 H, Lymph %(Auto) 9.5 L, [place] % (Auto) 8.5, Eos % (Auto) 0.1, [...] Patient is a 78-year-old female who presented [facility] ED on 12/27/2023 with left hip pain after a fall at home. She got up from the couch toself catheter, got her walker turned and then lost balance and fell on her left hip. 1. Acute debility due to left impacted transcervical femoral neck fracture. ? Admit under inpatient status to [facility]. Orthopedics consulted. N.p.o. at midnight. PT/OT/case [...] cousin over the phone who lives in [place]. Patient is clinically doing well. Currently has [...] disposition: TBD Charges/Coding Visit Charges Inpatient E&M: 22858 Subs Hosp L2 12/29/23 8919 <Electronically signed by Sunny Bell MD> Cosigner Signature (if applicable): CC: ~ Signed [facility] Work Phone: 1(648) 358-517204-30-2024 Progress note Author Sj Delacruz [facility] December 29, 2023 11:56am Note Date/Time December 29, 2023 11: 56am [facility] Medical Records Department [address] [place] [address] Progress Note - Orthopedic 12/29/23 1152 MR#: [id number] Acct: [id number] Name: OLGA DONALDSON Rep #:[id number] : 1945 78 From: Sj BHATTI PA-C PCP: Dr. Ramone Smiley MD Status:ADM IN Location: MS3 [id number] Subjective Subjective Patient sitting at bedside watching [...] (Auto) 81.1 H, Lymph %(Auto) 9.5 L, [place] % (Auto) 8.5, Eos % (Auto) 0.1, [...] 14:25 EDT Reading Location ID and State: [facility] / [place] , Service support , Hip X-Ray 12/28/23 [...] Cosigner Signature (if applicable): CC: ~ Signed [facility] Work Phone: 1(563) 721-556804-29-2024 Consult note Author Gabriel [facility] December 28, 2023 12:59pm Note Date/Time December 28, 2023 12: 59pm [facility] Medical Records Department [address] [place] [address] Consultation - Orthopedics 12/28/23 1252 MR#: [id number] Acct: [id number] Name: OLGA DONALDSON Rep #:[id number] : 1945 78 From: Gabriel Blue PCP: Dr. Ramone Smiley MD Status:ADM IN Location: [place] [address]1 HPI Consult Data Date of Consult: 12/28/23 [...] She denies any previous DVTs or PEs. [facility] Medical History Anemia Anxiety Aortic stenosis [...] % (Auto) 51.7, Lymph % (Auto) 37.1, [place] % (Auto) 6.6, Eos % (Auto) 3.1, [...] 23:29 EDT Reading Location ID and State: [facility] / [employer] , Service support , Hip/Pelvis X-Ray 12/27/23 23:05 IMPRESSION: Acute impacted fracture of the transcervical femoral neck. Electronically Signed: Weston Patel MD at 23:30 EDT Reading Location ID and State: [id number] / [employer] , Service support , Assessment & [...] rehab. Patient's projected recovery will likely require fci or intensive inpatient rehabilitation prior to discharge back home. (2) Falls: (3) Weakness: (4) Microcytic anemia: (5) Chronic renal failure, stage 3 (moderate): QUALIFIERS: Chronic kidney disease stage 3 subtype: unspecified whether 3a or 3b Qualified Code(s): N18.30 - Chronic kidney disease, stage 3 unspecified 12/28/23 1259 <Electronically signed by Gabriel Byrd MD> Cosigner Signature (if applicable): CC: Dr. Ramone Smiley MD~ Signed [facility] Work Phone: 1(463) 147-599704-29-2024 Procedure [facility] 12-28-2023 Progress note Author Sunny Bell [facility] December 28, 2023 11:23am Note Date/Time December 28, 2023 9:5 2am [facility] Medical Records Department [address] [place] [address] Progress Note - Hospitalist 12/28/23 0949 MR#: [id number] Acct: [id number] Name: OLGA DONALDSON Rep #:[id number] : 1945 78 From: Sunny Blue PCP: Dr. Ramone Smiley MD Status:ADM [facility] Reason for Visit Reason for Visit: Diagnoses [...] % (Auto) 51.7, Lymph % (Auto) 37.1, K[place] % (Auto) 6.6, Eos % (Auto) 3.1, [...] Signed: Weston Patel MD at 23:29 EDT , Hip/Pelvis X-Ray 12/27/23 23:05 IMPRESSION: Acute [...] Patient is a 78-year-old female who presented [facility] ED on 12/27/2023 with left hip pain after a fall at home. She got up from the couch toself catheter, got her walker turned and then lost balance and fell on her left hip. 1. Acute debility due to left impacted transcervical femoral neck fracture. ? Admit under inpatient status to [facility]. Orthopedics consulted. N.p.o. at midnight. PT/OT/case [...] disposition: TBD Charges/Coding Visit Charges Inpatient E&M: 09040 Subs Hosp L2 12/28/23 1123 <Electronically signed by Sunny Bell MD> Cosigner Signature (if applicable): CC: ~ Signed [facility] Work Phone: 1(666) 237-519504-29-2024 History and physical note Author Nestor Bartlett [facility] December 28, 2023 4:47am Note Date/Time December 27, 2023 11: 30pm [facility] Medical Records Department [address] [place] [address] H&P Exam - Hospitalist 12/27/23 2330 MR#: [id number] Acct: [id number] Name: OLGA DONALDSON Rep #:[id number] : 1945 78 From: Nestor roman DO PCP: Dr. Ramone Smiley MD Status:ADM IN [place] [facility] [id number] HPI - General General Date of Admission: 12/27/23 Date of Service: 12/27/23 Chief Complaint: Left hip fracture HPI Narrative OLGA DONALDSON, is a 78 F who presented to [facility] ED on 12/27/2023 with left hip [...] Patient will be admitted for further management. [facility] Medical History Anemia Anxiety Aortic stenosis [...] % (Auto) 51.7, Lymph % (Auto) 37.1, [place] % (Auto) 6.6, Eos % (Auto) 3.1, [...] Patient is a 78-year-old female who presented [facility] ED on 12/27/2023 with left hip pain after a fall at home. 1. Left femoral neck fracture ? Admit under inpatient status to [facility]. Orthopedics consulted. N.p.o. at midnight. Preop [...] 75 minutes. Charges/Coding Visit Charges Inpatient E&M: 78009 Init Hosp L3 12/28/23 7837 <Electronically signed by Nestor Bartlett DO> Cosigner Signature (if applicable): CC: Dr. Nestor Bartlett DO; Dr. Ramone Smiley MD~ Signed [facility] Work Phone: 1(230) 946-140304-29-2024 Discharge summary Author Queta Cortez [facility] December 28, 2023 2:33am Note Date/Time December 27, 2023 10: 23pm [facility] Medical Records Department [address] [place] [address] Emergency Department Summary 12/27/23 MR#: [id number] Acct: [id number] Name: OLGA DONALDSON Rep #:[id number] : 1945 78 From: Queta Cortez MD PCP: Dr. Ramone Smiley MD Status:ADM IN Location: [place] [address]-1 HPI HPI - Fall History of Present [...] aspirin but no other form of anticoagulant. [facility] Medical History Anemia Anxiety Aortic stenosis [...] [facility] 01/21/16 [History Last Taken 08/12/23] [...] Medical decision making narrative: Patient placed on lithograph operator. Patient given morphine and Zofran for pain [...] % (Auto) 51.7 Lymph % (Auto) 37.1 [place] % (Auto) 6.6 Eos % (Auto) 3.1 [...] Ravi previously prior to his fdc. Dr. Byrd is on-call for [facility] and I will speak with [facility] need for surgical repair. Discharge Plan Dx/Rx/DC Orders Clinical Impression: Fracture of hip, left, closed Disposition Disposition: Acute Care Hospital [facility] What to do if you have Problems For any increased pain, shortness of breath, bleeding, nausea or vomiting, chestpain, or any unexpected problems, contact your Primary Care Provider. Call [facility] ([phone]) or report to the closest Emergency Room. Call 911 if necessary. 12/28/23 0233 <Electronically signed by Queta Cortez MD> Cosigner Signature (if applicable): CC: Dr. Ramone Smiley MD ~ Signed [facility] Work Phone: 1(329) 691-459212-18-2023 Consult note Author Derrick Hallman [facility] August 17, 2023 11:38am Note Date/Time August 17, 2023 11:[address] [facility] Medical Records Department [address] [place] [address] Counseling Note - Pharmacy 08/17/23 1137 MR#: [id number] Acct: [id number] Name: OLGA DONALDSON Rep #:[id number] : 1945 78 From: Derrick Hallman PCP: Dr. Ramone Smiley MD Status:ADM IN Y Location: [place] [address] Pharmacy [facility] Service has performed discharge medication reconciliation [...] mg chewable tablet 81 mg PO DAILY [facility] 01/21/16 albuterol sulfate 90 mcg/actuation aerosol [...] Signature (if applicable): Date CC: ~ Signed [facility] Work Phone: 1(871) 899-724512-18-2023 Discharge summary Author Sandeep Denson [facility] August 17, 2023 11:20am Note Date/Time August 17, 2023 11:12am [facility] Medical Records Department [address] [place] [address] Discharge Summary 08/17/23 1111 MR#: [id number] Acct: [id number] Name: OLGA DONALDSON Rep #:[id number] : 1945 78 From: Sandeep Denson MD PCP: Dr. Ramone Smiley MD Status:ADM IN Location: [place] [id number] Providers Date of Admission: 08/13/23 Date [...] - Requested for PT OT eval and transition social worker to assist with discharge planning [...] Document 08/14/23 13:49 AG (Rec: 08/14/23 13:49 [id number]) Nutrition Malnutrition Evidence of Malnutrition Exists Yes [...] Right Blood Culture - Final GNR lactose dietary worker 08/13/23 11:10 Blood Culture (Wb) - Anticubital [...] Anne Marie Marshall MD [Med Staff - Utilities Estimator And Drafter] - 08/25/23 10:30 am Disposition Disposition (needs filled in before D/C Order can be placed): Home, Self Care Charges/Coding Visit Charges Inpatient E&M: 71591 Disch Hosp >30min 08/17/23 1120 <Electronically signed by Sandeep Denson MD> Cosigner Signature (if applicable): CC: Dr. Sandeep Denson MD; Dr. Ramone Smiley MD~ Signed [facility] Work Phone: 1(757) 718-206212-17-2023 Progress note [facility] August 16, 2023 1:08pm Note Date/Time August 16, 2023 1:08pm [facility] Medical Records Department [address] [place] [address] Progress Note - Hospitalist 08/16/23 1300 MR#: [id number] Acct: [id number] Name: OLGA DONALDSON Rep #:[id number] : 1945 78 From: Nestor roman DO PCP: Dr. Ramone Smiley MD Status:ADM IN Location: [place] [address]- Reason for Visit Reason for Visit: Diagnoses [...] 08/14/23 13:49 AG (Rec: 08/14/23 13:49 AG [id number]) Nutrition Malnutrition Evidence of Malnutrition Exists Yes [...] Right Blood Culture - Final GNR lactose dietary worker 08/13/23 11:10 Blood Culture (Wb) - Anticubital [...] is a 78-year-old female who presented to [facility] ED on 08/13/2023 with increasing generalized [...] 35 minutes. Charges/Coding Visit Charges Inpatient E&M: 13938 Subs Hosp L2 08/16/23 1308 <Electronically signed by Nestor Bartlett DO> Cosigner Signature (if applicable): CC: ~ Signed [facility] Work Phone: 1(693) 251-229412-16-2023 Progress note Author Nestor [facility] August 15, 2023 1:28pm Note Date/Time August 15, 2023 1:24pm [facility] Medical Records Department [address] [facility] [place] [address] Progress Note - Hospitalist 08/15/23 1317 MR#: [id number] Acct: [id number] Name: OLGA DONALDSON Rep #:[id number] : 1945 78 From: Nestor roman DO PCP: Dr. Ramone Smiley MD Status:ADM IN Location: [place] [address] Reason for Visit Reason for Visit: Diagnoses [...] 08/14/23 13:49 AG (Rec: 08/14/23 13:49 AG [id number]) Nutrition Malnutrition Evidence of Malnutrition Exists Yes [...] Right Blood Culture - Preliminary GNR lactose dietary worker 08/13/23 11:00 Nasal Secretion SARS-CoV-2 & FLU [...] is a 78-year-old female who presented to [facility] ED on 08/13/2023 with increasing generalized [...] cultures preliminarily positive for gram-negative wes lactose dietary worker, follow-up speciation and sensitivities. 3. LIA, resolved [...] 35 minutes. Charges/Coding Visit Charges Inpatient E&M: 15050 Subs Hosp L2 08/15/23 1328 <Electronically signed by Nestor Bartlett DO> Cosigner Signature (if applicable): CC: ~ Signed [facility] Work Phone: [phone]) 478-375812-15-2023 Progress note Author Nestor [facility] August 14, 2023 3:08pm Note Date/Time August 14, 2023 2:58pm [facility] Medical Records Department [address] [place] [address] Progress Note - Hospitalist 08/14/23 1454 MR#: [id number] Acct: [id number] Name: OLGA DONALDSON Rep #:[id number] : 1945 78 From: Nestor roman DO PCP: Dr. Ramone Smiley MD Status:ADM IN Location: [place] [address] Reason for Visit Reason for Visit: Diagnoses [...] 08/14/23 13:49 AG (Rec: 08/14/23 13:49 AG [id number]) Nutrition Malnutrition Evidence of Malnutrition Exists Yes [...] (Auto) 79.7 H, Lymph% (Auto) 11.1 L, [place]osc[place] % (Auto) 6.1, Eos % (Auto) 0.6, [...] Catheterized Urine Culture - Preliminary GNR lactose dietary worker 08/13/23 12:05 Blood Culture (Wb) - Anticubital Right Blood Culture - Preliminary GNR lactose dietary worker 08/13/23 11:10 Blood Culture (Wb) - Anticubital Right Blood Culture - Preliminary GNR lactose dietary worker 08/13/23 11:00 Nasal Secretion SARS-CoV-2 & FLU [...] is a 78-year-old female who presented to [facility] ED on 08/13/2023 with increasing generalized [...] cultures preliminarily positive for gram-negative wes lactose dietary worker, follow-up speciation and sensitivities. 3. LIA, resolved [...] 35 minutes. Charges/Coding Visit Charges Inpatient E&M: 52954 Subs Hosp L2 08/14/23 1508 <Electronically signed by Nestor Bartlett DO> Cosigner Signature (if applicable): CC: ~ Signed [facility] Work Phone: [phone]) 296-790212-14-2023 Discharge summary Author Robert [facility] August 13, 2023 3:29pm Note Date/Time August 13, 2023 10:40am [facility] Medical Records Department [address] [place] [address] Emergency Department Summary 08/13/23 MR#: [id number] Acct: [id number] Name: OLGA DONALDSON Rep #:[id number] : 1945 78 From: Robert Allison DO PCP: Dr. Ramone Smiley MD Status:ADM IN Location: [place] [address] HPI History of Present Illness Chief Complaint: [...] She denies chest pain. She self caths. [facility] Medical History Anemia Anxiety Aortic stenosis [...] mg chewable tablet 81 mg PO DAILY [facility] 01/21/16 [History Last Taken 08/12/23] albuterol [...] 82.7 H Lymph % (Auto) 9.4 L [place] % (Auto) 6.1 Eos % (Auto) 0.1 [...] Sl. Cloudy Urine pH 5.0 Ur Specific Spade 1.015 Urine Protein 30 H Urine Glucose [...] Acute hyponatremia Disposition Disposition: Acute Care Hospital [facility] Discharge Date/Time: 08/13/23 14:54 What to do if you have Problems For any increased pain, shortness of breath, bleeding, nausea or vomiting, chestpain, or any unexpected problems, contact your Primary Care Provider. Call [facility] ([phone]) or report to the closest Emergency Room. Call 911 if necessary. 08/13/23 1529 <Electronically signed by Robert Allison DO> Cosigner Signature (if applicable): CC: Dr. Ramone Smiley MD ~ Signed [facility] Work Phone: [phone]) 532-458112-14-2023 History and physical note Author Heydi Amaya [facility] August 13, 2023 2:47pm Note Date/Time August 13, 2023 2:33pm [facility] Medical Records Department [address] [place] [address] H&P Exam - Hospitalist 08/13/23 1431 MR#: [id number] Acct: [id number] Name: OLGA DONALDSON Rep #:[id number] : 1945 78 From: Heydi Amaya MD PCP: Dr. Ramone Smiley MD Status:ADM IN Location: [place] [address] HPI - General General Date of Admission: 08/13/23 Date of Service: 08/13/23 Chief Complaint: Increasing weakness HPI Narrative OLGA DONALDSON, is [id number] female history of GERD, COPD, hypertension, diabetes, chronic urinary retention with self cathing presented to [facility] 08/13/2023 with increasing generalized weakness and [...] No other acute complaints at this time. [facility] Medical History Anemia Anxiety Aortic stenosis [...] (Auto) 82.7 H, Lymph% (Auto) 9.4 L, [place] % (Auto) 6.1, Eos % (Auto) 0.1, [...] Sl. Cloudy, Urine pH 5.0, Ur Specific Spade 1.015, Urine Protein 30 H, Urine Glucose [...] Amaya MD Charges/Coding Visit Charges Inpatient E&M: 30844 Init Hosp L2 08/13/23 1447 <Electronically signed by Heydi Amaya MD> Cosigner Signature (if applicable): CC: Dr. Ramone Smiley MD; Dr. Heydi Amaay MD~ Signed [facility] Work Phone: [phone]) 361-727305-31-[address] Lockwood [facility] January 28, 2023 4:30pm Note Date/Time January 28, 2023 3:17p m [facility] Medical Records Department [address] [place] [address] Emergency Department Summary 01/28/23 MR#: [id number] Acct: [id number] Name: OLGA DONALDSON Rep #:[id number] : 1945 78 From: Joseph Lockwood MD [...] pain which she has every single day. [facility] Medical History Anemia Anxiety Aortic stenosis [...] unit/mL subcutaneous solution 22 unit SQ BIDCM ufyxgwae30/03/20 [History Last Taken Unknown] insulin detemir U-100 [...] % (Auto) 56.6 Lymph % (Auto) 34.2 [place]osc[place] % (Auto) 5.6 Eos % (Auto) 2.6 [...] rhythm with a rate of 86. Normal LA and QTc intervals. No ischemic changes. Interpreted [...] packet 0.5 ea PO BID Rx Instructions: /4-1/2 capful before each meal pantoprazole 40 MG tablet 40 mg PO QHS insulin detemir U-100 100 UNITS/ML insulin pen 56 units SC BIDCM Label Comments: diabetic medication Rx Instructions: . insulin aspart U-100 100 UNIT/ML solution 22 unit SQ BIDCM vitamin S-xvhmukrnzogv-nzdtpzy 500 MG tablet,chewable 250 mg PO DAILY Primary Care Provider: Ramone Smiley Referrals: Ramone Smiley MD [Primary Care Provider] - 3-5 Days Disposition Disposition: Home, Self Care What to do if you have Problems For any increased pain, shortness of breath, bleeding, nausea or vomiting, chestpain, or any unexpected problems, contact your Primary Care Provider. Call [facility] ([phone]) or report to the closest Emergency Room. Call 911 if necessary. 01/28/23 1630 <Electronically signed by Joseph Lockwood MD> Cosigner Signature (if applicable): CC: Dr. Ramone Smiley MD ~ Signed [facility] Work Phone: [phone]) 842-503709-07-2022 NoteHNO ID: [id number] Author: 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 APRN.REGISTRY NURSE Service: ? Author Type: Nurse Practitioner Type: [...] an every 2-week basis for 4 cycles (CALGB-41086). Completed a year of trastuzumab 06/16/06. Referred back or anemia. Admitted to [facility] 12/02/2019 for chest pain with ambulation. Initial [...] 1.00 - 4.00 k/uL 2.70 2.30 2.03 [place]osciusko% % 7.0 6.6 6.9 Abs [place] <0.87 k/uL 0.49 0.47 0.47 Eosin% % [...] loss - ICD9: 280.0, (more content not included)...[facility]09-07-2022 History of Present illness Narrative* 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 APRN.[facility] - 05/07/2022 1:33 PM EDT Chief Complaint [...] an every 2-week basis for 4 cycles (CALGB-94991). Completed a year of trastuzumab 06/16/06. Referred back or anemia. Admitted to [facility] 12/02/2019 for chest pain with ambulation. Initial [...] 1.00 - 4.00 k/uL 2.70 2.30 2.03 [place]% % 7.0 6.6 6.9 Abs [place] <0.87 k/uL 0.49 0.47 0.47 Eosin% % [...] visit. 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 APRN.[facility]LI [facility]06-[facility]22 Miscellaneous Notes* Telephone Encounter - Stacie Varner LPN - 02/10/2022 8:33 AM EDT Pt called and notified, pt voices understanding. Stacie Varner LPN * Telephone Encounter - Joseph Rolle DO - 02/10/2022 6:20 AM EDT Can let her know CBC and iron levels doing well. Follow up as scheduled. Joseph Rolle DO documented in this encounterProv[facility] Hospital01-31-2022 Miscellaneous Notes* Telephone Encounter - Joseph [...] filed. Joseph Rolle DO documented in this encounterProv[facility]07-15-2021 Miscellaneous Notes* Telephone Encounter - Marina [...] drive and will complete lab work and last picker stool cards 03/21/2021, same day as [...] may have had one more recently at [facility]). Add on for 5 more doses of iron sucrose and repeat CBC/Iron studies about a month after completing. Joseph Rolle DO documented in this encounterProvidence HospitalConlt note Author Eboni Chan [facility] December 30, 2023 2:23pm Note Date/Time December 30, 2023 2:24pm [facility] Medical Records Department [address] [place] [address] Counseling Note - Pharmacy 12/30/23 1423 MR#: [id number] Acct: [id number] Name: OLGA DONALDSON Rep #:[id number] : 1945 78 From: Eboni Chan PCP: Dr. Ramone Smiley MD Status:ADM IN Location: [place] [address] Pharmacy [place] Med Reconciliation Pharmacy Service has performed discharge medication reconciliation for this patient. The patient's discharge medication list was reviewed for discrepancies and discrepancies were resolved. Medications at Discharge Home Medications aspirin 81 mg chewable tablet 81 mg PO DAILY [facility] 01/21/16 albuterol sulfate 90 mcg/actuation aerosol inhaler 2 puff inhalation Q4H PRN Sob&/Or Wheezing 08/16/18 diltiazem HCl 180 mg tablet,extended release 24 hr 180 mg PO DAILY BLOOD PRESSURE 12/17/18 magnesium oxide 400 mg (241.3 mg magnesium) [...] bisacodyl 10 mg rectal suppository 10 mg LA DAILY #0 ea 12/30/23 insulin glargine-yfgn 100 [...] Signature (if applicable): Date CC: ~ Signed [facility] Work Phone: Consult note Author Eboni Chan [facility] Note Date/Time January 24, 2025 2:52p [facility] Medical Records Department [address] [place] [address] Counseling Note - Pharmacy 01/24/25 1451 MR#: [id number] Acct: [id number] Name: OLGA DONALDSON Rep #:[id number] : 1945 80 From: Eboni Chan PCP: Dr. Ramone Smiley MD Status:ADM IN [facility] Counseling Pharmacy Service has performed discharge [...] Signature (if applicable): Date CC: ~ Signed [facility] Work Phone: Discharge summary Author Sunny Bell [facility] December 30, 2023 2:14pm Note Date/Time December 30, 2023 2:05pm [facility] Medical Records Department [address] [place] [address] Transfer to [facility] MR#: [id number] Acct: [id number] Name: OLGA DONALDSON Rep #:[id number] : 1945 78 From: Sunny Blue PCP: [...] Patient is a 78-year-old female who presented [facility] ED on 12/27/2023 with left hip pain after a fall at home. She got up from the couch toself catheter, got her walker turned and then lost balance and fell on her left hip. 1. Acute debility due to left impacted transcervical femoral neck fracture. ? Admit under inpatient status to [facility]. Orthopedics consulted. N.p.o. at midnight. PT/OT/case [...] cousin over the phone who lives in [facility]. Patient is clinically doing well. Currently has [...] 0RF bisacodyl 10 mg Suppository 10 mg LA DAILY Qty: 0 0RF insulin glargine-yfgn 100 [...] in before D/C Order can be placed): Alf Facility 12/30/23 1414 <Electronically signed by Sunny Bell MD> Cosigner Signature (if applicable): CC: Dr. Nestor Bartlett DO; Dr. Ramone Smiley MD; Dr. Gabriel Byrd MD ~ [facility] Work Phone: Discharge summary Author Sunny Bell [facility] December 30, 2023 2:26pm Note Date/Time December 30, 2023 2:21pm [facility] Medical Records Department [address] [place] [address] Discharge Summary 12/30/23 1414 MR#: [id number] Acct: [id number] Name: OLGA DONALDSON Rep #:[id number] : 1945 78 From: Sunny Blue PCP: Dr. Ramoen Smiley MD Status:ADM [facility] Date of Admission: 12/27/23 Date of [...] Patient is a 78-year-old female who presented [facility] ED on 12/27/2023 with left hip pain after a fall at home. She got up from the couch toself catheter, got her walker turned and then lost balance and fell on her left hip. 1. Acute debility due to left impacted transcervical femoral neck fracture. ? Admit under inpatient status to [facility]. Orthopedics consulted. N.p.o. at midnight. PT/OT/case [...] cousin over the phone who lives in [place]. Patient is clinically doing well. Currently has [...] mg chewable tablet 81 mg PO DAILY [facility] 01/21/16 albuterol sulfate 90 mcg/actuation aerosol [...] bisacodyl 10 mg rectal suppository 10 mg LA DAILY #0 ea 12/30/23 insulin glargine-yfgn 100 [...] % (Auto) 63.9, Lymph % (Auto) 25.3, [place] % (Auto) 8.7, Eos % (Auto) 1.4, [...] 0RF bisacodyl 10 mg Suppository 10 mg LA DAILY Qty: 0 0RF insulin glargine-yfgn 100 [...] in before D/C Order can be placed): Alf Facility Charges/Coding Visit Charges Inpatient E&M: 69914 Disch Hosp >30min 12/30/23 1426 <Electronically signed by Sunny Bell MD> Cosigner Signature (if applicable): CC: Dr. Ramone Smiley MD; Dr. Sunny Bell MD; Dr. Gabriel Byrd MD~ Signed [facility] Work Phone: Discharge summary Author Melba [facility] Note Date/Time January 24, 2025 1:27p m [facility] Medical Records Department [address] [place] [address] Instructions for Home/Discharge Instructions 01/24/25 1326 MR#: [id number] Acct: [id number] Name: OLGA DONALDSON Rep #:[id number] : 1945 80 From: Melba Hartmann MD [...] DO; Dr. Marcelina Soto MD ~ Signed [facility] Work Phone: Discharge summary Author [facility] Note Date/Time January 26, 2025 5:10a m [facility] Medical Records Department [address] [place] [address] Emergency Department Summary 01/26/25 MR#: [id number] Acct: [id number] Name: OLGA DONALDSON Rep #:[id number] : 1945 80 From: Jg Bryan DO [...] symptoms and therefore comes in for evaluation [facility] Medical History Fracture of hip, left, [...] mg tablet 25 mg PO BID BLOOD LA ESSURE 08/16/18 01/15/25 History pantoprazole 40 mg [...] cardiac dysrhythmia. Patient was kept on the lithograph operator and there was no dysrhythmia noted. Blood [...] % (Auto) 65.0 Lymph % (Auto) 25.1 Kosciusko % (Auto) 6.7 Eos % (Auto) 2.8 [...] the upper limits for size. Reading Location: [facility] Chest x-ray as [...] you have any further concerns Print Language: Belizean Disposition Disposition: Home, Self Care What to do if you have Problems For any increased pain, shortness of breath, bleeding, nausea or vomiting, chestpain, or any unexpected problems, contact your Primary Care Provider. Call [facility] ([phone]) or report to the closest Emergency Room. Call 911 if necessary. 01/26/25 0510 <Electronically signed by Jg Bryan DO> Cosigner Signature (if applicable): CC: Dr. Ramone mSiley MD ~ Signed [facility] Work Phone: Discharge summary Author Aj Holley [facility] Note Date/Time February 04, 2025 10:27 am [facility] Medical Records Department [address] [place] [address] Emergency Department Summary 02/04/25 MR#: [id number] Acct: [id number] Name: OLGA DONALDSON Rep #:[id number] : 1945 80 From: Aj Holley MD [...] of the couch, and has no pain. [facility] Medical History Elevated troponin Coronary artery [...] mg tablet 25 mg PO BID BLOOD LA ESSURE 08/16/18 01/15/25 History pantoprazole 40 mg [...] (Reviewed 01/31/25 @ 16:15 by Whitney Cao FRONT END DEVELOPER DESIGNER, FRONT END DEVELOPER DESIGNER-C) Daughter Breast cancer Father Hypertension Sister Cancer [...] 75.4 H Lymph % (Auto) 15.7 L [place]oscius[place] % (Auto) 6.6 Eos % (Auto) 1.7 [...] Chief Complaint: Shortness of Breath ED Provider: jA Holley Dx/Rx/DC Orders Prescriptions: No Action Januvia [...] MD [Primary Care Provider] - Print Language: Belizean What to do if you have Problems For any increased pain, shortness of breath, bleeding, nausea or vomiting, chestpain, or any unexpected problems, contact your Primary Care Provider. Call [facility] ([phone]) or report to the closest Emergency Room. [...] 11.8 and 37.9. White count slightly elevated Hersey 0.2 thousand. There is slight shift with [...] cc: Dr. Ramone Smiley MD ~* Signed [facility] Work Phone: Evaluation note* Diagnosis Onset Date Resolution Status Multiple thyroid nodules acu te Chronic renal failure, stage 3 (moderate) chronic Hypercalcemia chronic Abscess acute Abscess acute Abscess acute [facility] Work Phone: Evaluation note* Diagnosis Iron deficiency anemia due to chronic blood loss- Primary Iron deficiency anemia secondary to blood loss (chronic) documented in this encounter [facility] note* Diagnosis Onset Date Resolution Status Abscess acute Abscess acute Abscess acute Abscess acute Abscess acute Paronychia of left index finger acute [facility] Work Phone: Evaluation note* Diagnosis Iron deficiency anemia due to chronic blood loss- Primary Iron deficiency anemia secondary to blood loss (chronic) documented in this encounter [facility] note* Diagnosis Anemia, unspecified type- Primary documented in this encounter [facility] note* Diagnosis Iron deficiency anemia due to chronic blood loss- Primary Iron deficiency anemia secondary to blood loss (chronic) documented in this encounter [facility] noteNo assessment information availableWUniversity [facility] Work Phone: Evaluation note* Diagnosis Onset Date Resolution Status Gastroenteritis acute [facility] Work Phone: Evaluation note* Diagnosis Onset Date Resolution Status Gastroenteritis acute Falls acute Weakness acute Asthma chronic COPD (chronic obstructive pulmonary disease) chronic GERD (gastroesophageal reflux disease) chronic History of malignant neoplasm of breast chronic Hypertension chronic Neurogenic bladder chronic Type 2 diabetes mellitus chr onic Acute hyponatremia resolved Acute UTI resolved LIA (acute kidney injury) re solved [facility] Work Phone: Evaluation note* Diagnosis Onset Date Resolution Status Fracture of hip, left, closed acute [facility] Work Phone: Evaluation note* Diagnosis Onset Date Resolution Status Falls acute Fracture of hip, left, closed acute Microcytic anemia acute Weakness acute Chronic renal failure, stage 3 (moderate) chronic Hypercalcemia chronic [facility] Work Phone: Evaluation note* Diagnosis Onset Date Resolution Status Gastroenteritis acute Acute hyponatremia acute Acute UTI acute LIA (acute kidney injury) ac jason [place] acute Weakness acute Asthma chronic COPD (chronic obstructive pulmonary disease) chronic GERD (gastroesophageal reflux disease) chronic History of malignant neoplasm of breast chronic Hypertension chronic Neurogenic bladder chronic Type 2 diabetes mellitus chr onic [facility] Work Phone: History and physical note Author Heydi Amaya [facility] August 13, 2023 2:47pm Note Date/Time August 13, 2023 2:33pm [facility] Medical Records Department [address] [place] [address] H&P Exam - Hospitalist 08/13/23 1431 MR#: [id number] Acct: [id number] Name: OLGA DONALDSON Rep #:[id number] : 1945 78 From: Heydi Amaya MD PCP: Dr. Ramone Smiley MD Status:ADM [id number] HPI - General General Date of Admission: 08/13/23 Date of Service: 08/13/23 Chief Complaint: Increasing weakness HPI Narrative OLGA DONALDSON, is [id number] female history of GERD, COPD, hypertension, diabetes, chronic urinary retention with self cathing presented to [facility] 08/13/2023 with increasing generalized weakness and [...] No other acute complaints at this time. [facility] Medical History Anemia Anxiety Aortic stenosis [...] mg chewable tablet 81 mg PO DAILY [facility] 01/21/16 [History Last Taken 08/12/23] albuterol [...] (Auto) 82.7 H, Lymph% (Auto) 9.4 L, K[place] % (Auto) 6.1, Eos % (Auto) 0.1, [...] Sl. Cloudy, Urine pH 5.0, Ur Specific Spade 1.015, Urine Protein 30 H, Urine Glucose [...] Amaya MD Charges/Coding Visit Charges Inpatient E&M: 98849 Init Hosp L2 08/13/23 1447 <Electronically signed by Heydi Amaya MD> Cosigner Signature (if applicable): CC: Dr. Ramone Smiley MD; Dr. Heydi Amaya MD~ Signed [facility] Work Phone: History and physical note Author Tono Kitchenak [facility] Note Date/Time February 09, 2025 3:52 pm [facility] Medical Records Department [address] [place] [address] H&P Exam - Hospitalist 02/09/25 1525 MR#: [id number] Acct: [id number] Name: OLGA DONALDSON Rep #:[id number] : 1945 80 From: Tono BHATTI PA PCP: Dr. Ramone Smiley MD Status:REG ER [...] tightness, no dizziness or lightheadedness, no palpitations. [facility] Medical History COPD with exacerbation Anemia [...] mg tablet 25 mg PO BID BLOOD LA ESSURE 08/16/18 01/15/25 History pantoprazole 40 mg [...] (Auto) 86.9 H, Lymph % (Auto) 7.3L, [place] % (Auto) 4.5, Eos % (Auto) 0.1, [...] degree of bibasilar linear atelectasis. Reading Location: [place] [address] Assessment & Plan Assessment/Plan (1) COPD exacerbation: [...] Gomez PA-C under the supervision of Doctor Borden. (2) Hypoxia: 02/09/25 1552 <Electronically signed by Tono BHATTI> Cosigner Signature (if applicable): CC: DAVY Dykes; Dr. Raomne Smiley MD~ Signed [facility] Work Phone: History and physical note Author Nestor Bartlett [facility] Note Date/Time February 15, 2025 2:57 pm [facility] Medical Records Department [address] [place] [id number] H&P Exam - Hospitalist 02/15/25 1401 MR#: [id number] Acct: [id number] Name: OLGA DONALDSON Rep #:[id number] : 1945 80 From: Nestor roman DO PCP: Dr. Ramone Smiley MD Status:ADM JESS [place] [id number] HPI - General General Date of Admission: 02/15/25 Date of Service: 02/15/25 Chief Complaint: Shortness of breath, acute on chronic debility HPI Narrative OLGA DONALDSON, is a 80 F who presented to [facility] ED on 02/15/2025 with shortness of [...] currently. Will be admitted for further management. [facility] Medical History (Updated 02/15/25 @ 13:15 [...] mg tablet 25 mg PO BID BLOOD LA ESSURE 08/16/18 01/15/25 History pantoprazole 40 mg [...] 01/15/25 01/15/25 History 0.005 % eye drops (Juan Carlos) psyllium husk 0.4 gram capsule 0.4 g [...] 82.5 H, Lymph % (Auto) 10.9 L, Kosc[place] % (Auto) 4.8, Eos % (Auto) 0.7, [...] evidence of acute cardiopulmonary process. Reading [facility] Assessment & Plan Assessment/Plan (1) Generalized weakness: PLAN: Plan Patient is an 80-year-old female who presented [facility] ED on 02/15/2025 with recurrent shortness of breath and acute on chronic debility. 1. Acute on chronic debility ? Admit under observation status to [facility]. PT/OT/case management consulted. Multiple recent hospitalizations [...] 75 minutes. Charges/Coding Visit Charges Inpatient E&M: 66517 Init Hosp L3 02/15/25 8474 <Electronically signed by Nestor Bartlett DO> Cosigner Signature (if applicable): CC: Dr. Netsor Bartlett DO; Dr. Ramone Smiley MD~ Signed [facility] Work Phone: Hospital Discharge instructions Additional Instructions Chest x-ray negative. COVID, flu, RSV negative. Your glucose 321 the lab normal gap. You are given 10 units of short acting insulin. You were started on antibiotics and steroids. Your glucose will be elevated with the steroids. Continue insulin including your sliding scale. Next dose of antibiotics steroids is tomorrow. This was sent to [facility] Work Phone: Hospital Discharge instructions Additional Instructions Take medications as prescribed. Follow-up your doctor in outpatient setting. Return with worsening symptoms or concerns.[facility] Work Phone: Hospital Discharge instructions Additional [...] the ER should you have any further concernsW[facility] Work Phone: Hospital Discharge instructions Additional Instructions Continue your steroids and your nebulizer treatments as previously directed. Your chest x-ray did not show pneumonia today. Continue to wear your nasal cannula oxygen.[facility] Work Phone: Hospital Discharge instructionsAdditional Instructions Follow-up with your doctor in outpatient setting. Follow-up and urine culture. Take antibiotic as prescribed sent to your pharmacy. Urinalysis did show evidence of infection. Take MiraLAX twice daily until you are having good bowel movements then you can reduce to once daily. 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 Advance Directive(s) 05/12/2016 10:06 AM Advance Directive(s) 04/30/2016 11:10 AM Advance Directive(s) 02/19/2016 5:55 AM Advance Directive(s) 02/14/2016 3:07 PM Advance Directive Response Recorded Date/ Time Advance Directives Yes December 02 7:47am Living Will Yes July 14, 2 022 2:52pm Power of Billing Department Supervisor Yes July 14, 2022 2:52pm Name of Medical Power of Billing Department Supervisor son July 14, 2022 2:52pm Advance Directive Response Recorded Date/ Time Advance Directives Yes December 02 8:47am Living Will Yes July 14, 2 022 3:52pm Power of Billing Department Supervisor Yes July 14, 2022 3:52pm Advance Directive Response Recorded Date/ Time Name of Medical Power of Billing Department Supervisor SHANTELLE January 28, 2023 3:11pm Advance Directives Yes December 02 8:47am Living Will Yes January 28, 2023 3 :11pm Power of Billing Department Supervisor Yes January 28, 2023 3:11pm Advance Directive Response Recorded Date/ Time Name of Medical Power of Billing Department Supervisor Ursula Donaldson July 18, 2023 11:35pm Advance Directives Yes December 02 7:47am Living Will Yes July 18, 023 11:35pm Power of Billing Department Supervisor Yes July 18, 2023 11:35pm Advance Directive Response Recorded Date/ Time Name of Medical Power of Billing Department Supervisor . August 07, 2023 9:45pm Advance Directives Yes December 02 7:47am Living Will No August 13, 023 3:22pm Power of Billing Department Supervisor No August 13, 2023 3:22pm Name of Medical Power of Billing Department Supervisor Ursula Donaldson July 18, 2023 11:35pm Advance Directive Response Recorded Date/ Time Advance Directives Yes December 02 8:47am Living Will No August 13, 023 4:22pm Power of Billing Department Supervisor No August 13, 2023 4:22pm Advance Directive Response Recorded Date/ Time Advance Directives Yes December 02 8:47am Living Will No December 27, 2023 11:02pm Power of Billing Department Supervisor No December 26 11:02pm Advance Directive Response Recorded Date/ Time Advance Directives Yes December 02 8:47am Living Will No December 28, 2023 12:27am Power of Billing Department Supervisor No December 27 12:27am Advance Directive Response Recorded Date/ Time Name of Medical Power of Billing Department Supervisor . August 07, 2023 9:45pm Advance Directives Yes December 02 7:47am Living Will No August 13 023 11:05am Power of Billing Department Supervisor No August 13, 2023 11:05am Name of Medical Power of Billing Department Supervisor Ursula Donaldson July 18, 2023 11:35pm Advance Directive Response Recorded Date/ Time Do you have a Healthcare Power of Billing Department Supervisor? No January 07, 2025 3:00pm Advance Directives Yes December 02 8:47am Advance Directive Response Recorded Date/ Time Do you have a Healthcare Power of Billing Department Supervisor? No January 15, 2025 2:24pm Do you have a Healthcare Power of Billing Department Supervisor? No January 07, 2025 3:00pm Advance Directives Yes December 02 8:47am Advance Directive Response Recorded Date/ Time Do you have a Healthcare Power of Billing Department Supervisor? No January 15, 2025 2:24pm Do you have a Healthcare Power of Billing Department Supervisor? No January 20, 2025 4:39am Do you have a Healthcare Power of Billing Department Supervisor? No January 07, 2025 3:00pm Advance Directives Yes December 02 8:47am Advance Directive Response Recorded Date/ Time Do you have a Healthcare Power of Billing Department Supervisor? No January 15, 2025 2:24pm Do you have a Healthcare Power of Billing Department Supervisor? No January 20, 2025 4:39am Do you have a Healthcare Power of Billing Department Supervisor? No January 07, 2025 3:00pm Do you have a Healthcare Power of Billing Department Supervisor? No January 26, 2025 3:01am Advance Directives Yes December 02 8:47am Advance Directive Response Recorded Date/ Time Do you have a Healthcare Power of Billing Department Supervisor? No January 15, 2025 2:24pm Do you have a Healthcare Power of Billing Department Supervisor? No January 20, 2025 4:39am Do you have a Healthcare Power of Billing Department Supervisor? Yes February 04, 2025 6:32am Name of Medical Power of Billing Department Supervisor February 04, 2025 6:32am Do you have a Healthcare Power of Billing Department Supervisor? No January 07, 2025 3:00pm Do you have a Healthcare Power of Billing Department Supervisor? No January 26, 2025 3:01am Advance Directives Yes December 02 8:47am Advance Directive Response Recorded Date/ Time Do you have a Healthcare Power of Billing Department Supervisor? No January 15, 2025 2:24pm Do you have a Healthcare Power of Billing Department Supervisor? No January 20, 2025 4:39am Do you have a Healthcare Power of Billing Department Supervisor? Yes February 04, 2025 12:35pm Name of Medical Power of Billing Department Supervisor February 04, 2025 6:32am Do you have a Healthcare Power of Billing Department Supervisor? No January 07, 2025 3:00pm Do you have a Healthcare Power of Billing Department Supervisor? No January 26, 2025 3:01am Advance Directives Yes December 02 8:47am Advance Directive Response Recorded Date/ Time Do you have a Healthcare Power of Billing Department Supervisor? No January 15, 2025 2:24pm Do you have a Healthcare Power of Billing Department Supervisor? No January 20, 2025 4:39am Do you have a Healthcare Power of Billing Department Supervisor? Yes February 04, 2025 12:35pm Name of Medical Power of Billing Department Supervisor February 04, 2025 6:32am Do you have a Healthcare Power of Billing Department Supervisor? Yes February 09, 2025 12:01pm Name of Medical Power of Billing Department Supervisor ursula lees jr February 09, 2025 12:01pm Do you have a Healthcare Power of Billing Department Supervisor? No January 07, 2025 3:00pm Do you have a Healthcare Power of Billing Department Supervisor? No January 26, 2025 3:01am Advance Directives Yes December 02 8:47am Advance Directive Response Recorded Date/ Time Do you have a Healthcare Power of Billing Department Supervisor? No January 15, 2025 2:24pm Do you have a Healthcare Power of Billing Department Supervisor? No January 20, 2025 4:39am Do you have a Healthcare Power of Billing Department Supervisor? Yes February 04, 2025 12:35pm Name of Medical Power of Billing Department Supervisor February 04, 2025 6:32am Do you have a Healthcare Power of Billing Department Supervisor? Yes February 09, 2025 4:43pm Name of Medical Power of Billing Department Supervisor ursula lees jr February 09, 2025 4:43pm Do you have a Healthcare Power of Billing Department Supervisor? No January 07, 2025 3:00pm Do you have a Healthcare Power of Billing Department Supervisor? No January 26, 2025 3:01am Advance Directives Yes December 02 8:47am Advance Directive Response Recorded Date/ Time Do you have a Healthcare Power of Billing Department Supervisor? No January 15, 2025 2:24pm Do you have a Healthcare Power of Billing Department Supervisor? No January 20, 2025 4:39am Do you have a Healthcare Power of Billing Department Supervisor? Yes February 04, 2025 12:35pm Name of Medical Power of Billing Department Supervisor February 04, 2025 6:32am Do you have a Healthcare Power of Billing Department Supervisor? Yes February 09, 2025 4:43pm Name of Medical Power of Billing Department Supervisor ursula lees jr February 09, 2025 4:43pm Do you have a Healthcare Power of Billing Department Supervisor? Yes February 15, 2025 8:36am Do you have a Healthcare Power of Billing Department Supervisor? No January 07, 2025 3:00pm Do you have a Healthcare Power of Billing Department Supervisor? No January 26, 2025 3:01am Advance Directives Yes December 02 8:47am Advance Directive Response Recorded Date/ Time Do you have a Healthcare Power of Billing Department Supervisor? No January 15, 2025 2:24pm Do you have a Healthcare Power of Billing Department Supervisor? No January 20, 2025 4:39am Do you have a Healthcare Power of Billing Department Supervisor? Yes February 04, 2025 12:35pm Name of Medical Power of Billing Department Supervisor February 04, 2025 6:32am Do you have a Healthcare Power of Billing Department Supervisor? Yes February 09, 2025 4:43pm Name of Medical Power of Billing Department Supervisor ursula lees jr February 09, 2025 4:43pm Do you have a Healthcare Power of Billing Department Supervisor? Yes February 15, 2025 3:20pm Do you have a Healthcare Power of Billing Department Supervisor? No January 07, 2025 3:00pm Do you have a Healthcare Power of Billing Department Supervisor? No January 26, 2025 3:01am Advance Directives Yes December 02 8:47am Advance Directive Response Recorded Date/ Time Do you have a Healthcare Power of Billing Department Supervisor? No January 15, 2025 2:24pm Do you have a Healthcare Power of Billing Department Supervisor? No January 20, 2025 4:39am Do you have a Healthcare Power of Billing Department Supervisor? Yes February 04, 2025 12:35pm Name of Medical Power of Billing Department Supervisor February 04, 2025 6:32am Do you have a Healthcare Power of Billing Department Supervisor? Yes February 09, 2025 4:43pm Name of Medical Power of Billing Department Supervisor ursula lees jr February 09, 2025 4:43pm Do you have a Healthcare Power of Billing Department Supervisor? Yes February 15, 2025 3:20pm Do you have a Healthcare Power of Billing Department Supervisor? No January 07, 2025 3:00pm Do you have a Healthcare Power of Billing Department Supervisor? No January 26, 2025 3:01am Do you have a Healthcare Power of Billing Department Supervisor? Yes February 18, 2025 8:56pm Advance Directives Yes Tianna 4th, 20 22 8:47am Advance Directive Response Recorded Date/ Time Do you have a Healthcare Power of Billing Department Supervisor? No January 15, 2025 2:24pm Do you have a Healthcare Power of Billing Department Supervisor? No January 20, 2025 4:39am Do you have a Healthcare Power of Billing Department Supervisor? Yes February 04, 2025 12:35pm Name of Medical Power of Billing Department Supervisor February 04, 2025 6:32am Do you have a Healthcare Power of Billing Department Supervisor? Yes February 09, 2025 4:43pm Name of Medical Power of Billing Department Supervisor ursula lees February 09, 2025 4:43pm Do you have a Healthcare Power of Billing Department Supervisor? Yes February 15, 2025 3:20pm Do you have a Healthcare Power of Billing Department Supervisor? No January 07, 2025 3:00pm Do you have a Healthcare Power of Billing Department Supervisor? No January 26, 2025 3:01am Do you have a Healthcare Power of Billing Department Supervisor? Yes February 18, 2025 8:56pm Do you have a Healthcare Power of Billing Department Supervisor? Yes March 04, 2025 6:52pm Advance Directives Yes December 02 8:47am Advance Directive Response Recorded Date/ Time Do you have a Healthcare Power of Billing Department Supervisor? No January 15, 2025 2:24pm Do you have a Healthcare Power of Billing Department Supervisor? No January 20, 2025 4:39am Do you have a Healthcare Power of Billing Department Supervisor? Yes February 04, 2025 12:35pm Name of Medical Power of Billing Department Supervisor February 04, 2025 6:32am Do you have a Healthcare Power of Billing Department Supervisor? Yes February 09, 2025 4:43pm Name of Medical Power of Billing Department Supervisor ursula lees February 09, 2025 4:43pm Do you have a Healthcare Power of Billing Department Supervisor? Yes February 15, 2025 3:20pm Do you have a Healthcare Power of Billing Department Supervisor? No January 07, 2025 3:00pm Do you have a Healthcare Power of Billing Department Supervisor? No January 26, 2025 3:01am Do you have a Healthcare Power of Billing Department Supervisor? Yes February 18, 2025 8:56pm Do you have a Healthcare Power of Billing Department Supervisor? Yes March 04, 2025 6:52pm Do you have a Healthcare Power of Billing Department Supervisor? No March 21, 2025 1:31pm Advance Directives Yes December 02 8:47am Advance Directive Response Recorded Date/ Time Do you have a Healthcare Power of Billing Department Supervisor? No January 15, 2025 2:24pm Do you have a Healthcare Power of Billing Department Supervisor? No January 20, 2025 4:39am Do you have a Healthcare Power of Billing Department Supervisor? Yes February 04, 2025 12:35pm Name of Medical Power of Billing Department Supervisor February 04, 2025 6:32am Do you have a Healthcare Power of Billing Department Supervisor? Yes February 09, 2025 4:43pm Name of Medical Power of Billing Department Supervisor ursula lees jr February 09, 2025 4:43pm Do you have a Healthcare Power of Billing Department Supervisor? Yes February 15, 2025 3:20pm Do you have a Healthcare Power of Billing Department Supervisor? No January 07, 2025 3:00pm Do you have a Healthcare Power of Billing Department Supervisor? No January 26, 2025 3:01am Do you have a Healthcare Power of Billing Department Supervisor? Yes February 18, 2025 8:56pm Do you have a Healthcare Power of Billing Department Supervisor? Yes March 04, 2025 6:52pm Do you have a Healthcare Power of Billing Department Supervisor? Yes March 22, 2025 12:37am Name of Medical Power of Billing Department Supervisor ochoa donaldson March 22, 2025 12:37am Advance Directives Yes December 02 8:47am Chief Complaint and Reason for Visit Chief Complaint THYROID SCREENING HYPERPARATHYROIDISM VAGINAL LUMP, PAINFUL VAGINAL LUMP F/U fu per MH Reason for Visit Multiple thyroid nod ules Chronic renal failure, stage 3 (moderate) Hypercalcemia Abscess Abscess Abscess Chief Complaint VAGINAL LUMP, PAINFU L VAGINAL LUMP F/U fu per MH F/U PER SM 1 WK FU LEFT [...] sob January 26, 2025 3:00a m S/P [facility] 01/24 (PCU) January 31, 2025 1:42p [...] sob January 26, 2025 3:00a m S/P [facility] 01/24 (PCU) January 31, 2025 1:42p [...] sob January 26, 2025 3:00a m S/P [facility] 01/24 (PCU) January 31, 2025 1:42p [...] sob January 26, 2025 3:00a m S/P [facility] 01/24 (U) January 31, 2025 1:42p [...] sob January 26, 2025 3:00a m S/P [facility] 01/24 (PCU) January 31, 2025 1:42p [...] sob January 26, 2025 3:00a m S/P [facility] 01/24 (PCU) January 31, 2025 1:42p [...] sob January 26, 2025 3:00a m S/P [facility] 01/24 (PCU) January 31, 2025 1:42p [...] sob January 26, 2025 3:00a m S/P [facility] 01/24 (PCU) January 31, 2025 1:42p [...] sob January 26, 2025 3:00a m S/P [facility] 01/24 ([facility]) January 31, 2025 1:42p m HYPOXIA, [...] sob January 26, 2025 3:00a m S/P [facility] 01/24 (U) January 31, 2025 1:42p [...] sob January 26, 2025 3:00a m S/P [facility] 01/24 (PCU) January 31, 2025 1:42p [...] Amb Documentation March 09, 2025 8:25 am Chief Complaint Admit Date sob January 07, 2025 2:55p m copd [...] sob January 26, 2025 3:00a m S/P [facility] 01/24 (U) January 31, 2025 1:42p [...] Amb Documentation March 09, 2025 8:25 am INTRACTABLE BACK PAIN, UTI March 21 11:03pm Reason for Visit Admit Date Acute hypoxemic [...] Generalized weakness February 15, 2025 2:0 1pm Acute UTI March 21, 2025 11:0 3pm Back muscle spasm March 21, 2025 11:0 3pm Chief Complaint Admit Date sob January 07, 2025 2:55p m copd [...] sob January 26, 2025 3:00a m S/P [facility] 01/24 ([facility]) January 31, 2025 1:42p m HYPOXIA, [...] Amb Documentation March 09, 2025 8:25 am INTRACTABLE BACK PAIN, UTI March 21 11:03pm INTRACTABLE BACK PAIN, UTI March 22 2:28pm INTRACTABLE BACK PAIN, UTI March 23 1:28pm INTRACTABLE BACK PAIN, UTI March 24 12:00pm INTRACTABLE BACK PAIN, UTI March 25 11:33am Reason for Visit Admit Date Acute hypoxemic [...] Generalized weakness February 15, 2025 2:0 1pm Acute UTI March 21, 2025 11:0 3pm Back muscle spasm March 21, 2025 11:0 3pm Debility March 21, 2025 11:0 3pm COPD exacerbation March 21, 2025 11:0 3pm Additional Source Comments INFORMATION SOURCE (unrecogn ized section and content) DATE CREATED AUTHOR 02/25/2018 [facility] DATE CREATED AUTHOR AUTHOR'S ORGANIZ ATION 05/08/2022 [facility] DATE CREATED AUTHOR AUTHOR'S ORGANIZ ATION 04/01/2025 [facility] Goals (unrecognized section and content) [...] or prosecute any alcohol or drug abuse patient.[facility] the event this information is protected by the Federal Confidentiality of Alcohol and Drug Abuse Patient Records regulations: The Federal rules restrict any use of the information to criminally investigate or prosecute any alcohol or drug abuse patient.[facility] Hospital[facility] the event this information is protected by the Federal Confidentiality of Alcohol and Drug Abuse Patient Records regulations: The Federal rules restrict any use of the information to criminally investigate or prosecute any alcohol or drug abuse patient.[facility] the event this information is protected by the Federal Confidentiality of Alcohol and Drug Abuse Patient Records regulations: The Federal rules restrict any use of the information to criminally investigate or prosecute any alcohol or drug abuse patient.[facility] Hospital[facility] the event this information is protected by the Federal Confidentiality of Alcohol and Drug Abuse Patient Records regulations: The Federal rules restrict any use of the information to criminally investigate or prosecute any alcohol or drug abuse patient.[facility] Care Teams (unrecognized sec tion and [...] 2025 End: January 07, 2025 Dr. Ethan Suarez DO Attending Provider Active Start : January 07, 2025 End: January 07, 2025 Dr. Ethan Suarez , Emergency Provider Active Start : January 07, [...] January 23, 2025 Dr. Jeevan Yoder , Emergency Provider Active Start: January 23, 2025 Dr. Sandeep Carlton DO Admit Provider Active Start: January 23, 2025 Dr. Sandeep Carlton , Other Provider Active Start: January 23, 2025 [...] Carlton , Admit Provider Active Start: January 24, 2025 Dr. Sandeep Carlton DO Other Provider Active Start: January 24, 2025 Dr. Melba Hartmann MD Attending Provider Active Start: January 24, 2025 Dr. Melba Hartmann MD Other Provider Active St art: January 24, 2025 Dr. Lucio Borden , Other Provider Active S tart: January 24, 2025 Dr. Marcelnia Soto MD Other Provider Active Start: January 24, 2025 Team Status: Inactive Member Role Status Dates Dr. Ramone Smiley MD Primary Care Provider Active Start: January 26, 2025 End: January 26, 2025 Dr. Jg Bryan , Emergency Provider Active Start: January 26, 2025 End: January 26, 2025 Tree Trimming Supervisor Relationship Specialty Start Date End Date Ramone Smiley MD PCP - General Family Practice 08/16/15 Tree Trimming Supervisor Relationship Specialty Start Date End Date Ramone Smiley MD PCP - General Family Practice 08/16/15 Tree Trimming Supervisor Relationship Specialty Start Date End Date Ramone Smiley MD PCP - General Family Practice 08/16/15 Tree Trimming Supervisor Relationship Specialty Start Date End Date Ramone Smiley MD PCP - General Family Practice 08/16/15 Tree Trimming Supervisor Relationship Specialty Start Date End Date [...] Ramone Smiley MD Primary Care Provider, Attending [facility] Active Team Status: Active Member Role Status [...] 2025 End: January 07, 2025 Dr. Ethan Suarez DO Emergency Provider Active Start : January [...] End: January 31, 2025 Whitney Cao NP, FRONT END DEVELOPER DESIGNER-C Attending Provider Active Start: January 31, 2025 [...] End: February 06, 2025 Dr. Lucio Borden , Admit Provider Active S tart: February 04, [...] tart: February 12, 2025 Dr. Lucio Borden Admit Provider Active S tart: February 12, 2025 Dr. Lucio Borden DO Attending Provider Active Start: February 12, 2025 Dr. Lucio Borden , Other Provider Active S tart: February 12, [...] Active Start: February 13, 2025 Dr. Jeremiah Crorales MD Emergency Provider Active S tart: February 13, 2025 Dr. Lucio Borden DO Admit Provider Active S tart: February 13, 2025 Dr. Lucio Borden DO Attending Provider Active Start: February 13, 2025 Dr. Lucio Borden , Other Provider Active S tart: February 13, [...] 2025 End: January 07, 2025 Dr. Ethan Suarez DO Attending Provider Active Start : January 07, 2025 End: January 07, 2025 Dr. Ethan Suarez DO Emergency Provider Active Start : January [...] Carlton DO Admit Provider Active Start: January 20, [...] Active Start: January 21, 2025 Dr. Sandeep de Frank , DO Admit Provider Active Start: January [...] Start: January 23, 2025 Dr. Jeevan Yoder DO Emergency Provider Active Start: January 23, [...] Status: Active Member Role/Relationship Status Dates Dr. Ramnoe Smiley MD Primary Care Provider Active Start: January 23, 2025 Dr. Jeevan Yoder DO Emergency Provider Active Start: January 23, [...] Start: January 24, 2025 Dr. Jeevan Yoder DO Emergency Provider Active Start: January 24, 2025 Dr. Sandeep Carlton DO Admit Provider Active Start: January 24, 2025 Dr. Sandeep Carlton DO Other Provider Active Start: January 24, 2025 Dr. Melba Hartmann MD Attending Provider Active Start: January 24, 2025 Dr. Melba Hartmann MD Other Provider Active St art: January 24, 2025 Dr. Lucio Borden , Other Provider Active S tart: January 24, [...] 2025 End: January 31, 2025 Whitney Cao FRONT END DEVELOPER DESIGNER, FRONT END DEVELOPER DESIGNER-C Attending Provider Active Start: January 31, 2025 [...] S tart: February 12, 2025 Dr. Lucio Tereletsky , DO Attending Provider Active Start: February 12, 2025 Dr. Lucio Borden , DO Other Provider Active S tart: February 12, 2025 Team Status: Active Member Role/Relationship Status Dates Dr. Ramone Smiley MD Primary Care Provider Active Start: February 13, 2025 Dr. Jeremiah Corrales MD Emergency Provider Active S tart: February 13, 2025 Dr. Lucio Borden , DO Admit Provider Active S tart: February 13, 2025 Dr. Lucio Borden , DO Attending Provider Active Start: February 13, 2025 Dr. Lucio Borden , DO Other Provider Active S tart: February 13, 2025 Team Status: Inactive Member Role/Relationship Status Dates Dr. Ramone Smiley MD Primary Care Provider Active Start: February 15, 2025 End: February 17, 2025 Dr. Robert Allison , Emergency Provider Active S tart: February 15, 2025 End: February 17, 2025 Dr. Nestor Bartlett , DO Admit Provider Active Start: February 15, 2025 End: February 17, 2025 Dr. Nestor Bartlett , DO Other Provider Active Start: February 15, 2025 End: February 17, 2025 Dr. Heydi Amaya MD Attending Provider Active Start: February 15, 2025 End: February 17, 2025 Team Status: Active Member Role/Relationship Status Dates Dr. Ramone Smiley MD Primary Care Provider Active Start: February 16, 2025 Dr. Robert Allison , Emergency Provider Active S tart: February 16, 2025 Dr. Nestor Bartlett , DO Admit Provider Active Start: February 16, 2025 Dr. Nestor Bartlett , Other Provider Active Start: February 16, 2025 Dr. Heydi Amaya MD Attending Provider Active Start: February 16, 2025 Dr. Heydi Amaya MD Other Provider Active Star t: February 16, 2025 Team Status: Active Member Role/Relationship Status Dates Dr. Ramone Smiley MD Primary Care Provider Active Start: February 17, 2025 Dr. Robert Allison , Emergency Provider Active S tart: February 17, 2025 Dr. Nestor Bartlett , DO Admit Provider Active Start: February 17, 2025 Dr. Nestor Bartlett , DO Other Provider Active Start: February 17, [...] Active Start: March 07, 2025 Whitney Cao FRONT END DEVELOPER DESIGNER, FRONT END DEVELOPER DESIGNER-C Attending Provider Active Start: March 07, 2025 Whitney Cao FRONT END DEVELOPER DESIGNER, FRONT END DEVELOPER DESIGNER-C Referring Provider Active Start: March 07, 2025 [...] 2025 End: March 07, 2025 Whitney Cao FRONT END DEVELOPER DESIGNER, FRONT END DEVELOPER DESIGNER-C Attending Provider Active Start: March 07, 2025 End: March 07, 2025 Whitney Cao FRONT END DEVELOPER DESIGNER, FRONT END DEVELOPER DESIGNER-C Referring Provider Active Start: March 07, 2025 End: March 07, 2025 Team Status: Active Member Role/Relationship Status Dates Dr. Ramone Smiley MD Primary Care Provider Active Start: March 07, 2025 Whitney Cao FRONT END DEVELOPER DESIGNER, FRONT END DEVELOPER DESIGNER-C Referring Provider Active Start: March 07, 2025 Whitney Cao FRONT END DEVELOPER DESIGNER, FRONT END DEVELOPER DESIGNER-C Other Provider Active Sta rt: March 07, 2025 Dr. Se Good MD Attending Provider Active S tart: March 07, 2025 Team Status: Active Member Role/Relationship Status Dates Dr. Ramone Smiley MD Primary Care Provider Active Start: March 09, 2025 Whitney Cao FRONT END DEVELOPER DESIGNER, FRONT END DEVELOPER DESIGNER-C Attending Provider Active Start: March 09, 2025 Team Status: Inactive Member Role/Relationship Status Dates Dr. Ramone Smiley MD Primary Care Provider Active Start: January 07, 2025 End: January 07, 2025 Dr. Ethan Suaerz DO Attending Provider Active Start : January 07, 2025 End: January 07, 2025 Dr. Ethan Suarez DO Emergency Provider Active Start : January [...] Start: January 22, 2025 Dr. Sandeep Carlton DO Other Provider Active Start: January 22, [...] January 23, 2025 Dr. Jeevan Yoder , Emergency Provider Active Start: January 23, 2025 [...] January 26, 2025 Dr. Jg Bryan , DO Attending Provider Active Start: January 26, 2025 End: January 26, 2025 Dr. Jg Bryan , DO Emergency Provider Active Start: January 26, 2025 End: January 26, 2025 Team Status: Inactive Member Role/Relationship Status Dates Dr. Ramone Smiley MD Primary Care Provider Active Start: January 31, 2025 End: January 31, 2025 Dr. Ramone Smiley MD Referring Provider Active St art: January 31, 2025 End: January 31, 2025 Whitney Cao FRONT END DEVELOPER DESIGNER, FRONT END DEVELOPER DESIGNER-C Attending Provider Active Start: January 31, 2025 End: January 31, 2025 Team Status: Inactive Member Role/Relationship Status Dates Dr. Ramone Smiley MD Primary Care Provider Active Start: February 04, 2025 End: February 06, 2025 Dr. Aj Holley MD Emergency Provider Active Start: February 04, 2025 End: February 06, 2025 Dr. Lucio Borden , Admit Provider Active S tart: February 04, [...] Provider Active Start: February 06, 2025 Dr. jA Holley MD Emergency Provider Active Start: February [...] Status: Active Member Role/Relationship Status Dates Dr. Raomne Smiley MD Primary Care Provider Active Start: February 11, 2025 Dr. Jeremiah Corrales MD Emergency Provider Active S tart: February 11, 2025 Dr. Lucio Borden DO Admit Provider Active S tart: February 11, 2025 Dr. Lucio Borden DO Attending Provider Active Start: February 11, 2025 Dr. Lucio Borden , DO Other Provider Active S tart: February 11, 2025 Team Status: Active Member Role/Relationship Status Dates Dr. Ramone Smiley MD Primary Care Provider Active Start: February 12, 2025 Dr. Jeremiah Corrales MD Emergency Provider Active S tart: February 12, 2025 Dr. Lucio Borden , DO Admit Provider Active S tart: February 12, 2025 Dr. Lucio Borden DO Attending Provider Active Start: February 12, 2025 Dr. Lucio Borden , DO Other [...] End: February 17, 2025 Dr. Robert Allison , Emergency Provider Active S tart: February 15, 2025 End: February 17, 2025 Dr. Nestor Bartlett , DO Admit Provider Active Start: February 15, 2025 End: February 17, 2025 Dr. Nestor Bartlett , Other Provider Active Start: February 15, 2025 End: February 17, 2025 Dr. Heydi Amaya MD Attending Provider Active Start: February 15, 2025 End: February 17, 2025 Team Status: Active Member Role/Relationship Status Dates Dr. Ramone Smiley MD Primary Care Provider Active Start: February 16, 2025 Dr. Robert Allison DO Emergency Provider Active S tart: February 16, 2025 Dr. Nestor Bartlett , DO Admit Provider Active Start: February 16, 2025 Dr. Nestor Bartlett , DO Other Provider Active Start: February 16, [...] MD Primary Care Provider Active Start: February 28, 2025 Dr. Asha Anguiano MD Attending Provider Active Start: February 28, 2025 Team Status: Active Member Role/Relationship Status Dates Dr. Ramone Smiley MD Primary Care Provider Active Start: March 21, 2025 Dr. Noé Currie DO Emergency Provider Active Start: March 21, 2025 Dr. Abigail Foster MD Admit Provider Active St art: March 21, 2025 Dr. Abigail Foster MD Attending Provider Active Start: March 21, 2025 Team Status: Inactive Member Role/Relationship Status Dates Dr. Ramone Smiley MD Primary Care Provider Active Start: March 21, 2025 End: March 25, 2025 Dr. Noé Currie DO Emergency Provider Active Start: March 21, 2025 End: March 25, 2025 Dr. Abigail Foster MD Admit Provider Active St art: March 21, 2025 End: March 25, 2025 Dr. Abigail Foster MD Other Provider Active St art: March 21, 2025 End: March 25, 2025 Dr. Melba Hartmann MD Attending Provider Active Start: March 21, 2025 End: March 25, 2025 Team Status: Active Member Role/Relationship Status Dates Dr. Ramone Smiley MD Primary Care Provider Active Start: March 22, 2025 Dr. Noé Currie DO Emergency Provider Active Start: March 22, 2025 Dr. Abigail Foster MD Admit Provider Active St art: March 22, 2025 Dr. Abigail Foster MD Other Provider Active St art: March 22, 2025 Dr. Melba Hartmann MD Attending Provider Active Start: March 22, 2025 Dr. Melba Hartmann MD Other Provider Active St art: March 22, 2025 Team Status: Active Member Role/Relationship Status Dates Dr. Ramone Smiley MD Primary Care Provider Active Start: March 23, 2025 Dr. Noé Currie DO Emergency Provider Active Start: March 23, 2025 Dr. Abigail Foster MD Admit Provider Active St art: March 23, 2025 Dr. Abigail Foster MD Other Provider Active St art: March 23, 2025 Dr. Melba Hartmann MD Attending Provider Active Start: March 23, 2025 Dr. Melba Hartmann MD Other Provider Active St art: March 23, 2025 Team Status: Active Member Role/Relationship Status Dates Dr. Ramone Smiley MD Primary Care Provider Active Start: March 24, 2025 Dr. Noé Currie DO Emergency Provider Active Start: March 24, 2025 Dr. Abigail Foster MD Admit Provider Active St art: March 24, 2025 Dr. Abigail Foster MD Other Provider Active St art: March 24, 2025 Dr. Melba Hartmann MD Attending Provider Active Start: March 24, 2025 Dr. Melba Hartmann MD Other Provider Active St art: March 24, 2025 Team Status: Active Member Role/Relationship Status Dates Dr. Ramone Smiley MD Primary Care Provider Active Start: March 25, 2025 Dr. Noé Currie DO Emergency Provider Active Start: March 25, 2025 Dr. Abigail Foster MD Admit Provider Active St art: March 25, 2025 Dr. Abigail Foster MD Other Provider Active St art: March 25, 2025 Dr. Melba Hartmann MD Attending Provider Active Start: March 25, 2025 Dr. Melba Hartmann MD Other Provider Active St art: March 25, 2025 Reason for Visit (unrecogniz ed section [...] BE BASED ON THE PRIMARY CLINICAL RECORDS. [employer] [facility]. provides no warranty or guarantee of the accuracy or completeness of information in this document.
--- OUTSIDE RECORDS SUMMARY | 2025-04-02 04:33 | XMS RPT_ITS | CCD ---
Author Organization [facility] Care Team Providers Care Sleeping Room Cleaner Name Role Phone Zuleika Heaton Unavailable Unavailable LEE ALAMO Unavailable Unavailable PROVIDER, UNKNOWN Unavailable Unavailable Zuleika Heaton Unavailable Unavailable Dr. Ramone Smiley Primary Care Provider Dr. Ramone Smiley Referring Provider Dr. Michael Carmen Attending Provider [phone] Juan Carlos JEAN, MIRANDA-Marianna Bullock Attending Provider [...] LEARY, Dr. Melba Gayle Other Provider [phone] Herrera LEARY, Dr. Hudson Attending Provider Baljit LEARY, Dr. Pack Primary Care Provider Baljit LEARY, Dr. Pack Attending Provider Baljit LEARY, Dr. Pack Referring Provider Irvin RAYMUNDO, Dr. Gregorio Emergency Provider Irvin RAYMUNDO, Dr. Gregorio Attending Provider Nash GMAT TUTOR-C, Whitney Attending Provider Leydi LEARY, Dr. Rocha [...] Kristin LEARY, Dr. Abigail Awad Other Provider [phone] Smiley, Ramone Primary Care Unavailable Lucio Borden Admitting Unavailable TerLucio doherty Consulting Unavailable Lucio Borden Attending Unavailable Nash GMAT TUTOR, Whitney Attending Unavailable Nash GMAT TUTOR, Whitney Referring Unavailable Smiley, Ramone Primary Care Unavailable Smiley, Ramone Referring Unavailable Smiley, Ramone Primary Care Unavailable Nash GMAT TUTOR, Whitney Attending Unavailable Abigail Foster Admitting Unavailable [...] Ramone Attending Unavailable Abigail Foster Admitting Unavailable Abigail Foster Consulting Unavailable Melba Hartmann Attending Unavailable Smiley, Ramone Primary Care Unavailable Nash GMAT TUTOR, Whitney Consulting Unavailable Nash GMAT TUTOR, Whitney Referring Unavailable Se Good Attending Unavailable Smiley, Ramone Primary Care Unavailable Nash JEAN, Whitney Attending Unavailable Smiley, Ramone Primary Care Unavailable Sandeep Carlton Attending Unavailable Becca Silverman Attending Unavailable Allergies Allergy Classification Reported Allergen(s) Allergy Type Date of Onset Reaction(s) Facility (20 sources) Adhesive Tape; Translations: [ADHESIVE TAPE] allergy to substance 5 NEEDS FOLLOW-UP [facility] Work Phone: Comment on above: CLOTH TAPE (20 sources) amoxicillin; Translations: [amoxicillin] drug allergy 5 yeast infection [facility] Work Phone: (2 sources) cephalexin drug allergy 5 [facility] Work Phone: (2 sources) clopidogrel drug allergy 5 [facility] Work Phone: (20 sources) Cephalexin; Translations: [cephalexin monohydrate] Drug Allergy 2 [facility] (20 sources) clopidogrel; Translations: [clopidogrel bisulfate] Drug Allergy 1 Hives [facility] Work Phone: (2 sources) cloth tap Allergy to substance 2 Other [facility] Work Phone: (5 sources) Cephalexin Drug Allergy 5 [facility] Work Phone: (5 sources) tape [Other] Propensity to adverse reactions 5 [facility] (1 source) oxyCODONE Drug Allergy 5 [facility] (1 source) oxyCODONE Drug Allergy 5 [facility] Repository Medications Current Medications Medication Drug [...] 19, 2018 1:00am October 26, 2018 1:09am [id number] 200 actuat albuter ol 0.09 mg/actuat metered [...] AERS As needed - 90mcg/inh ALBUTEROL SULFATE [id number] Se Good MD Start: 08-29-2015 VENTOLIN HFA 1 08 (90 Base) MCG/ACT AERS As needed - 90mcg/inh ALBUTEROL SULFATE [id number] Se Good MD Start: 12-25-2014 End: 01-12-2018 [...] TABS One tablet by mouth daily ASPIRIN [id number] Kadie Álvarez RN Start: 08-23-2015 take 1 tablet by martin [facility] once daily ASPIRIN 81 MG TABS One tablet by mouth daily ASPIRIN 87325614224 Kadie Álvarez RN take 1 tablet by [...] in each nostril twice daily AZELASTINE HCL 94221454889 Kadie Álvarez RN Start: 08-23-2015 take 1-2 spray(s) na deepali route twice daily ASTEPRO 0.15 % SOLN 1-2 sprays in each nostril twice daily AZELASTINE HCL [id number] Kadie Álvarez RN take 1-2 spray(s) na [...] MCG/ACT AERO 2 puffs daily BUDESONIDE-FORMOTEROL FUMARATE 77109515728 Kadie Álvarez RN Start: 08-23-2015 SYMBICORT 160- 4.5 MCG/ACT AERO 2 puffs daily BUDESONIDE-FORMOTEROL FUMARATE 68830838558 Kadie Álvarez RN take 1 puff(s) by in halation twice daily budesonide-formoterol (SYMBICORT) 160-4.5 mcg/actuation inhaler Indications: Other iron deficiency anemia Inhale 1 Puff as instructed twice daily. 0 Active Comment on above: Inhale 1 Puff as ins tructed twice daily. Amgrholidz-Pxffpbck-Scntlorc ol (19 sources) Corticosteroid, beta2-Adrenergic Agonist Start: [...] POWD 3 times daily with water PSYLLIUM 31789728030 Kadie Álvarez RN Roflumilast (20 sources) Phosphodiesterase [...] EVERY WEEK January 15, 2025 12:00am Vitamin V-Utgdqrzzttcb-Vglk ral (15 sources) Start: 12-02-2019 take 250 mg by mouth once daily Vitamin X-Movpuqjdfctj-Pkg eral Active 250 MG PO DAILY December 02, 2019 11:46am Start: 12-02-2019 End: 07-18-2023 take 250 mg by mouth once daily Vitamin H-Jxcelgqgmlhr-Owdsdqm Discontinued 250 MG PO DAILY December 02, 2019 12:00am July 19, 2023 12:34am Start: 12-02-2019 End: 07-18-2023 take 250 mg by mouth once daily Vitamin R-Wnnccyptbbps-Ukjddrd Discontinued 250 MG PO DAILY December 01, 2019 11:00pm July 18, 2023 11:34pm Start: 12-02-2019 take 250 mg by mouth once daily Vitamin I-Wdxobxsxluqt-Lhkromg Active 25 0 MG PO DAILY December 01, 2019 11:00pm Start: 12-02-2019 take 250 mg by mouth once daily Vitamin M-Jmhtldxqcsxf-Nkbqmgd Active 25 0 MG PO DAILY December [...] One tablet by mouth daily AMLODIPINE BESYLATE [id number] Se Good MD apixaban 5 mg oral [...] lower legs 1-2 times daily BETAMETHASONE DIPROPIONATE 42940158843 Kadie Álvarez RN Start: 08-23-2015 BETAMETHASONE DIPROPIONATE 0.05 % LOTN apply to lower legs 1-2 times daily BETAMETHASONE DIPROPIONATE 00626033644 Kadie Álvarez RN bisacodyl 10 mg rectal suppo sitory (20 sources) Stimulant Laxative Start: 12-30-2023 End: 01-15-2024 Start: 08-23-2015 take 1 tablet by martin th once daily as needed BISACODYL EC 5 MG TBEC One tablet by mouth daily as needed BISACODYL 05062967974 Kadie Álvarez RN calcium carbonate (2 sources) Start: 08-23-2015 take 1 tablet by mouth once daily CALCIUM 600 600 MG TABS One tablet by mouth daily CALCIUM CARBONATE 99038388804 Kadie Álvarez RN Calcium Carbonate / vitamin D3 (5 sources) take 1 tablet by mouth once daily CALCIUM CARBONATE/VITAMIN D3 (CALCIUM 600 + D,3, ORAL) Indications: Other iron deficiency anemia Take 1 tablet by mouth once daily. 0 Active Comment on above: Take 1 tablet by [facility] once daily. chlorpheniramine maleate 4 mg oral tablet (2 sources) Histamine-1 Receptor Antagonist Start: 08-29-2015 CHLORPHENIRAMINE MALEATE 4 MG TABS As needed CHLORPHENIRAMINE MALEATE 67896994375 Se Good MD cholecalciferol 0.025 mg oral [...] by mouth daily COD LIVER OIL CAPS 03381841885 Kadie Álvarez RN take 1 capsule by mouth once neftaly ly Cod Liver Oil cap Indications: Other iron deficiency anemia Take 1 capsule by mouth once daily. 0 Active Comment on above: Take 1 capsule by [facility] once daily. Cod Liver Oil capsule (4 [...] Start: 01-07-2025 take 1 capsule by [facility] every twenty-four hours Diltiazem Hcl 180 mg capsule,ext.rel 24h degradable Active mg PO January 07, 2025 12:00am Start: 08-16-2018 End: 01-07-2025 Start: 08-29-2015 take 1 tablet by martin th once daily DILT-XR 180 MG [id number] One tablet by mouth daily DILTIAZEM HCL 18935963039 Se Good MD Start: 08-29-2015 take 1 tablet by martin th once daily DILT-XR 180 MG [id number] One tablet by mouth daily DILTIAZEM HCL 53014135083 Se Good MD Comment on above: Take 180 mg by mouth once daily. docusate sodium 50 mg / sennosides, care [...] units SQ daily at bedtime INSULIN DETEMIR 04118725092 Mariana Finley RN Start: 08-23-2015 inject 28 [IU] by avila bcutaneous injection once daily LEVEMIR 100 UNIT/ML SOLN 28 units SQ daily INSULIN DETEMIR 67049799720 Kadie Álvarez RN Start: 08-23-2015 take 15 [IU] by subc utaneous injection once daily at bedtime LEVEMIR 100 UNIT/ML SOLN 15 units SQ daily at bedtime INSULIN DETEMIR 72857642434 Mariana Finley RN Start: 08-23-2015 take 28 [IU] by subc utaneous injection once daily LEVEMIR 100 UNIT/ML SOLN 28 units SQ daily INSULIN DETEMIR 86624594864 Kadie Álvarez RN inject 52 [IU] by [...] CAPS One tablet by mouth daily LINACLOTIDE 11498600943 Kadie Álvarez RN Start: 08-23-2015 take 1 tablet by martin th once daily LINZESS 290 MCG CAPS One tablet by mouth daily LINACLOTIDE 94704174796 Kadie Álvarez RN lisinopril 40 mg oral [...] One tablet by mouth daily MAGNESIUM CAPS 21103592903 Kadie Álvarez RN metFORMIN hydrochloride 1000 mg oral tablet (2 sources) Biguanide take 1 tablet by mouth twice daily GLUCOPHAGE 1000 MG TABS One tablet by mouth twice daily METFORMIN HCL 32490579871 Julita Chau NP metFORMIN hydrochloride 1000 mg / SITagliptin 50 mg oral tablet (4 sources) Biguanide, Dipeptidyl Peptidase 4 Inhibitor Start: 5 End: 5 take 1 tablet by mouth twice daily JANUMET 50-1000 MG TABS One tablet by mouth twice daily SITAGLIPTIN-METFORMI N HCL 28519207580 Se Good MD Start: 08-23-2015 End: 08-29-2015 take 1 tablet by mouth twice daily JANUMET 50-1000 MG TABS One tablet by mouth twice daily SITAGLIPTIN-METFORMIN HCL 35696795293 Se Good MD Start: 08-23-2015 take 1 tablet by martin th twice daily JANUMET 50-1000 MG TABS One tablet by mouth twice daily SITAGLIPTIN-METFORMIN HCL 78276799923 Kadie Álvarez RN miSOPROStol 0.2 mg oral [...] three times daily as needed PROMETHAZINE HCL 16339682293 Kadie Álvarez RN PSYLLIUM HUSK, BULK, MISC [...] One tablet by mouth daily RANITIDINE HCL 32411459204 Kadie Álvarez RN Comment on above: Take [...] MIST) 0.65 % nasal spray Use 1 [place] in the nose as needed. 0 Active Comment on above: Use 1 [place] in the n ose as needed. sucralfate [...] 10-18-2020 Start: 01-24-2020 End: 10-18-2020 Tiotropium [place] (Spiriva With Handihaler) 18 mcg capsule, w/inhalation device Discontinued 1 NMA INHALATION NEEDED as needed for Sob &/Or Wheezing January 24, 2020 12:00am October 18, 2020 9:28am puncture 1 cap using device; one dose = 2 inhalations Start: 01-24-2020 End: 10-18-2020 Tiotropium [place] (Spiriva With Handihaler) 18 mcg capsule, w/inhalation device Discontinued 1 PUFF INHALATION NEEDED January 24, 2020 12:00am October 18, 2020 9:28am puncture 1 cap using device; one dose = 2 inhalations Start: 08-23-2015 SPIRIVA HANDIH ALER 18 MCG CAPS as needed TIOTROPIUM BROMIDE MONOHYDRATE 08414280171 Kadie Álvarez RN Start: 08-23-2015 SPIRIVA HANDIH ALER 18 MCG CAPS as needed TIOTROPIUM BROMIDE MONOHYDRATE 80846824126 Kadie Álvarez RN Start: 12-25-2014 End: 01-12-2018 [...] sources) Corticosteroid Start: 01-07-2025 End: 01-15-2025 Vitamin Y-Lakwnklxehho-Gkurpns 500 MG tablet,chewable (2 sources) Start: 12-02-2019 End: 07-18-2023 Vitamin M-Fhdnhzzrrtgt-Ulkuvfz 500 MG tablet,chewable Discontinued 250 mg PO [...] Coronary arteriosclerosis; Translations: [Atherosclerotic heart disease of [place] coronary artery without angina pectoris] Onset: 5 [...] Respiratory failure; insufficiency; arrest (adult) (20 sources) Nxmyo-bg-lkacszk respiratory failure; Translations: [Acute respiratory failure with [...] Profile (BMP )on 03-30-2025 BUN Normal 4-19 [facility] Comment on above: Result Comment: Canc elled via OM: Order cancelled - Patient discharged Performed By: #### L 100.0100, L500.2500 ####[facility] [address] [place], [address] BUN/CRE Normal 10-20 [facility] Comment on above: Result Comment: Canc elled via OM: Order cancelled - Patient discharged Performed By: #### L 100.0100, L500.2500 ####[facility] [address] [place], [address] Calcium Normal 7.6-11.0 [facility] Comment on above: Result Comment: Canc elled via OM: Order cancelled - Patient discharged Performed By: #### L 100.0100, L500.2500 ####[facility] [address] [place], [address] CL Normal 98-108 [facility] Comment on above: Result Comment: Canc elled via OM: Order cancelled - Patient discharged Performed By: #### L 100.0100, L500.2500 ####[facility] [address] [place], [address] CO2 Normal 21.0-32.0 [facility] Comment on above: Result Comment: Canc elled via OM: Order cancelled - Patient discharged Performed By: #### L 100.0100, L500.2500 ####[facility] [address] [place], [address] CREAT,SERUM Normal 0.70-1.20 [facility] Comment on above: Result Comment: Canc elled via OM: Order cancelled - Patient discharged Performed By: #### L 100.0100, L500.2500 ####[facility] [address] [place], [address] eGFR Normal >60 [facility] Comment on above: Result Comment: Canc elled via OM: Order cancelled - Patient discharged Performed By: #### L 100.0100, L500.2500 ####[facility] [address] [place], [address] GAP Normal 5-15 [facility] Comment on above: Result Comment: Canc elled via OM: Order cancelled - Patient discharged Performed By: #### L 100.0100, L500.2500 ####[facility] [address] [place], [address] GLU Normal 70-99 [facility] Comment on above: Result Comment: Canc elled via OM: Order cancelled - Patient discharged Performed By: #### L 100.0100, L500.2500 ####[facility] [address] [place], [address] Potassium Normal 3.3-5.1 [facility] Comment on above: Result Comment: Canc elled via OM: Order cancelled - Patient discharged Performed By: #### L 100.0100, L500.2500 ####[facility] [address] [place], [address] Basic Metabolic Profile (BMP) Normal 133-145 [facility] Comment on above: Result Comment: Canc elled via OM: Order cancelled - Patient discharged Performed By: #### L 100.0100, L500.2500 ####[facility] [address] [place], [address] CBC W/Diff, Automatedon 07-3 Absolute Neut Normal 2.0-7.7 [facility] Comment on above: Result Comment: Canc elled via OM: Order cancelled - Patient discharged Performed By: #### L 100.0100, L500.2500 ####[facility] [address] [place], [address] HCT Normal 37-47 [facility] Comment on above: Result Comment: Canc elled via OM: Order cancelled - Patient discharged Performed By: #### L 100.0100, L500.2500 ####[facility] [address] [place], [address] HGB Normal 12.0-15.0 [facility] Comment on above: Result Comment: Canc elled via OM: Order cancelled - Patient discharged Performed By: #### L 100.0100, L500.2500 ####[facility] [address] [place], [address] MCH Normal 27.0-32.0 [facility] Comment on above: Result Comment: Canc elled via OM: Order cancelled - Patient discharged Performed By: #### L 100.0100, L500.2500 ####[facility] [address] [place], [address] MCHC Normal 32-36 [facility] Comment on above: Result Comment: Canc elled via OM: Order cancelled - Patient discharged Performed By: #### L 100.0100, L500.2500 ####[facility] [address] [place], [address] MCV Normal 81-99 [facility] Comment on above: Result Comment: Canc elled via OM: Order cancelled - Patient discharged Performed By: #### L 100.0100, L500.2500 ####[facility] [address] [place], [address] NEUT% Normal 47-70 [facility] Comment on above: Result Comment: Canc elled via OM: Order cancelled - Patient discharged Performed By: #### L 100.0100, L500.2500 ####[facility] [address] [place], [address] PLT Normal 150-450 [facility] Comment on above: Result Comment: Canc elled via OM: Order cancelled - Patient discharged Performed By: #### L 100.0100, L500.2500 ####[facility] [address] [place], [address] RBC Normal 4.2-5.4 [facility] Comment on above: Result Comment: Canc elled via OM: Order cancelled - Patient discharged Performed By: #### L 100.0100, L500.2500 ####[facility] [address] [place], [address] RDW CV Normal 11.6-14.6 [facility] Comment on above: Result Comment: Canc elled via OM: Order cancelled - Patient discharged Performed By: #### L 100.0100, L500.2500 ####[facility] [address] [place], [address] RDW SD Normal 35.1-43.9 [facility] Comment on above: Result Comment: Canc elled via OM: Order cancelled - Patient discharged Performed By: #### L 100.0100, L500.2500 ####[facility] [address] [place], [address] WBC Normal 4.4-11.0 [facility] Comment on above: Result Comment: Canc elled via OM: Order cancelled - Patient discharged Performed By: #### L 100.0100, L500.2500 ####[facility] [address] [place], [address] Basic Metabolic Profile (BMP )on 03-29-2025 BUN Normal 4-19 [facility] Comment on above: Result Comment: Canc elled via OM: Order cancelled - Patient discharged Performed By: #### L 500.2500, L100.0100 ####[facility] [address] [place], [address] BUN/CRE Normal 10-20 [facility] Comment on above: Result Comment: Canc elled via OM: Order cancelled - Patient discharged Performed By: #### L 500.2500, L100.0100 ####[facility] [address] [place], [address] Calcium Normal 7.6-11.0 [facility] Comment on above: Result Comment: Canc elled via OM: Order cancelled - Patient discharged Performed By: #### L 500.2500, L100.0100 ####[facility] [address] [place], [address] CL Normal 98-108 [facility] Comment on above: Result Comment: Canc elled via OM: Order cancelled - Patient discharged Performed By: #### L 500.2500, L100.0100 ####[facility] [address] [place], [address] CO2 Normal 21.0-32.0 [facility] Comment on above: Result Comment: Canc elled via OM: Order cancelled - Patient discharged Performed By: #### L 500.2500, L100.0100 ####[facility] [address] [place], [address] CREAT,SERUM Normal 0.70-1.20 [facility] Comment on above: Result Comment: Canc elled via OM: Order cancelled - Patient discharged Performed By: #### L 500.2500, L100.0100 ####[facility] [address] [place], [address] eGFR Normal >60 [facility] Comment on above: Result Comment: Canc elled via OM: Order cancelled - Patient discharged Performed By: #### L 500.2500, L100.0100 ####[facility] [address] [place], [address] GAP Normal 5-15 [facility] Comment on above: Result Comment: Canc elled via OM: Order cancelled - Patient discharged Performed By: #### L 500.2500, L100.0100 ####[facility] [address] [place], [address] GLU Normal 70-99 [facility] Comment on above: Result Comment: Canc elled via OM: Order cancelled - Patient discharged Performed By: #### L 500.2500, L100.0100 ####[facility] [address] [place], [address] Potassium Normal 3.3-5.1 [facility] Comment on above: Result Comment: Canc elled via OM: Order cancelled - Patient discharged Performed By: #### L 500.2500, L100.0100 ####[facility] [address] [place], [address] Basic Metabolic Profile (BMP) Normal 133-145 [facility] Comment on above: Result Comment: Canc elled via OM: Order cancelled - Patient discharged Performed By: #### L 500.2500, L100.0100 ####[facility] [address] [place], [address] CBC W/Diff, Automatedon 07-3 0-2024 Absolute Neut Normal 2.0-7.7 [facility] Comment on above: Result Comment: Canc elled via OM: Order cancelled - Patient discharged Performed By: #### L 500.2500, L100.0100 ####[facility] [address] [place], [address] HCT Normal 37-47 [facility] Comment on above: Result Comment: Canc elled via OM: Order cancelled - Patient discharged Performed By: #### L 500.2500, L100.0100 ####[facility] [address] [place], [address] HGB Normal 12.0-15.0 [facility] Comment on above: Result Comment: Canc elled via OM: Order cancelled - Patient discharged Performed By: #### L 500.2500, L100.0100 ####[facility] [address] [place], [address] MCH Normal 27.0-32.0 [facility] Comment on above: Result Comment: Canc elled via OM: Order cancelled - Patient discharged Performed By: #### L 500.2500, L100.0100 ####[facility] [address] [place], [address] MCHC Normal 32-36 [facility] Comment on above: Result Comment: Canc elled via OM: Order cancelled - Patient discharged Performed By: #### L 500.2500, L100.0100 ####[facility] [address] [place], [address] MCV Normal 81-99 [facility] Comment on above: Result Comment: Canc elled via OM: Order cancelled - Patient discharged Performed By: #### L 500.2500, L100.0100 ####[facility] [address] [place], [address] NEUT% Normal 47-70 [facility] Comment on above: Result Comment: Canc elled via OM: Order cancelled - Patient discharged Performed By: #### L 500.2500, L100.0100 ####[facility] [address] [place], [address] PLT Normal 150-450 [facility] Comment on above: Result Comment: Canc elled via OM: Order cancelled - Patient discharged Performed By: #### L 500.2500, L100.0100 ####[facility] [address] [place], [address] RBC Normal 4.2-5.4 [facility] Comment on above: Result Comment: Canc elled via OM: Order cancelled - Patient discharged Performed By: #### L 500.2500, L100.0100 ####[facility] [address] [place], [address] RDW CV Normal 11.6-14.6 [facility] Comment on above: Result Comment: Canc elled via OM: Order cancelled - Patient discharged Performed By: #### L 500.2500, L100.0100 ####[facility] [address] [place], [address] RDW SD Normal 35.1-43.9 [facility] Comment on above: Result Comment: Canc elled via OM: Order cancelled - Patient discharged Performed By: #### L 500.2500, L100.0100 ####[facility] [address] [place], [address] WBC Normal 4.4-11.0 [facility] Comment on above: Result Comment: Canc elled via OM: Order cancelled - Patient discharged Performed By: #### L 500.2500, L100.0100 ####[facility] [address] [place], [address] Basic Metabolic Profile (BMP )on 03-28-2025 BUN Normal 4-19 [facility] Comment on above: Result Comment: Canc elled via OM: Order cancelled - Patient discharged Performed By: #### L 100.0100, L500.2500 ####[facility] [address] [place], [address] BUN/CRE Normal 10-20 [facility] Comment on above: Result Comment: Canc elled via OM: Order cancelled - Patient discharged Performed By: #### L 100.0100, L500.2500 ####[facility] [address] [place], [address] Calcium Normal 7.6-11.0 [facility] Comment on above: Result Comment: Canc elled via OM: Order cancelled - Patient discharged Performed By: #### L 100.0100, L500.2500 ####[facility] [address] [place], [address] CL Normal 98-108 [facility] Comment on above: Result Comment: Canc elled via OM: Order cancelled - Patient discharged Performed By: #### L 100.0100, L500.2500 ####[facility] [address] [place], [address] CO2 Normal 21.0-32.0 [facility] Comment on above: Result Comment: Canc elled via OM: Order cancelled - Patient discharged Performed By: #### L 100.0100, L500.2500 ####[facility] [address] [place], [address] CREAT,SERUM Normal 0.70-1.20 [facility] Comment on above: Result Comment: Canc elled via OM: Order cancelled - Patient discharged Performed By: #### L 100.0100, L500.2500 ####[facility] [address] [place], [address] eGFR Normal >60 [facility] Comment on above: Result Comment: Canc elled via OM: Order cancelled - Patient discharged Performed By: #### L 100.0100, L500.2500 ####[facility] [address] [place], [address] GAP Normal 5-15 [facility] Comment on above: Result Comment: Canc elled via OM: Order cancelled - Patient discharged Performed By: #### L 100.0100, L500.2500 ####[facility] [address] [place], [address] GLU Normal 70-99 [facility] Comment on above: Result Comment: Canc elled via OM: Order cancelled - Patient discharged Performed By: #### L 100.0100, L500.2500 ####[facility] [address] [place], [address] Potassium Normal 3.3-5.1 [facility] Comment on above: Result Comment: Canc elled via OM: Order cancelled - Patient discharged Performed By: #### L 100.0100, L500.2500 ####[facility] [address] [place], [address] Basic Metabolic Profile (BMP) Normal 133-145 [facility] Comment on above: Result Comment: Canc elled via OM: Order cancelled - Patient discharged Performed By: #### L 100.0100, L500.2500 ####[facility] [address] [place], [address] CBC W/Diff, Automatedon 07-2 Absolute Neut Normal 2.0-7.7 [facility] Comment on above: Result Comment: Canc elled via OM: Order cancelled - Patient discharged Performed By: #### L 100.0100, L500.2500 ####[facility] [address] [place], [address] HCT Normal 37-47 [facility] Comment on above: Result Comment: Canc elled via OM: Order cancelled - Patient discharged Performed By: #### L 100.0100, L500.2500 ####[facility] [address] [place], [address] HGB Normal 12.0-15.0 [facility] Comment on above: Result Comment: Canc elled via OM: Order cancelled - Patient discharged Performed By: #### L 100.0100, L500.2500 ####[facility] [address] [place], [address] MCH Normal 27.0-32.0 [facility] Comment on above: Result Comment: Canc elled via OM: Order cancelled - Patient discharged Performed By: #### L 100.0100, L500.2500 ####[facility] [address] [place], [address] MCHC Normal 32-36 [facility] Comment on above: Result Comment: Canc elled via OM: Order cancelled - Patient discharged Performed By: #### L 100.0100, L500.2500 ####[facility] [address] [place], [address] MCV Normal 81-99 [facility] Comment on above: Result Comment: Canc elled via OM: Order cancelled - Patient discharged Performed By: #### L 100.0100, L500.2500 ####[facility] [address] [place], [address] NEUT% Normal 47-70 [facility] Comment on above: Result Comment: Canc elled via OM: Order cancelled - Patient discharged Performed By: #### L 100.0100, L500.2500 ####[facility] [address] [place], [address] PLT Normal 150-450 [facility] Comment on above: Result Comment: Canc elled via OM: Order cancelled - Patient discharged Performed By: #### L 100.0100, L500.2500 ####[facility] [address] [place], [address] RBC Normal 4.2-5.4 [facility] Comment on above: Result Comment: Canc elled via OM: Order cancelled - Patient discharged Performed By: #### L 100.0100, L500.2500 ####[facility] [address] [place], [address] RDW CV Normal 11.6-14.6 [facility] Comment on above: Result Comment: Canc elled via OM: Order cancelled - Patient discharged Performed By: #### L 100.0100, L500.2500 ####[facility] [address] [place], [address] RDW SD Normal 35.1-43.9 [facility] Comment on above: Result Comment: Canc elled via OM: Order cancelled - Patient discharged Performed By: #### L 100.0100, L500.2500 ####[facility] [address] [place], [address] WBC Normal 4.4-11.0 [facility] Comment on above: Result Comment: Canc elled via OM: Order cancelled - Patient discharged Performed By: #### L 100.0100, L500.2500 ####[facility] [address] [place], [address] Basic Metabolic Profile (BMP )on 03-27-2025 BUN Normal 4-19 [facility] Comment on above: Result Comment: Canc elled via OM: Order cancelled - Patient discharged Performed By: #### L 500.2500, L100.0100 ####[facility] [address] [place], [address] BUN/CRE Normal 10-20 [facility] Comment on above: Result Comment: Canc elled via OM: Order cancelled - Patient discharged Performed By: #### L 500.2500, L100.0100 ####[facility] [address] [place], [address] Calcium Normal 7.6-11.0 [facility] Comment on above: Result Comment: Canc elled via OM: Order cancelled - Patient discharged Performed By: #### L 500.2500, L100.0100 ####[facility] [address] [place], [address] CL Normal 98-108 [facility] Comment on above: Result Comment: Canc elled via OM: Order cancelled - Patient discharged Performed By: #### L 500.2500, L100.0100 ####[facility] [address] [place], [address] CO2 Normal 21.0-32.0 [facility] Comment on above: Result Comment: Canc elled via OM: Order cancelled - Patient discharged Performed By: #### L 500.2500, L100.0100 ####[facility] [address] [place], [address] CREAT,SERUM Normal 0.70-1.20 [facility] Comment on above: Result Comment: Canc elled via OM: Order cancelled - Patient discharged Performed By: #### L 500.2500, L100.0100 ####[facility] [address] [place], [address] eGFR Normal >60 [facility] Comment on above: Result Comment: Canc elled via OM: Order cancelled - Patient discharged Performed By: #### L 500.2500, L100.0100 ####[facility] [address] [place], [address] GAP Normal 5-15 [facility] Comment on above: Result Comment: Canc elled via OM: Order cancelled - Patient discharged Performed By: #### L 500.2500, L100.0100 ####[facility] [address] [place], [address] GLU Normal 70-99 [facility] Comment on above: Result Comment: Canc elled via OM: Order cancelled - Patient discharged Performed By: #### L 500.2500, L100.0100 ####[facility] [address] [place], [address] Potassium Normal 3.3-5.1 [facility] Comment on above: Result Comment: Canc elled via OM: Order cancelled - Patient discharged Performed By: #### L 500.2500, L100.0100 ####[facility] [address] [place], [address] Basic Metabolic Profile (BMP) Normal 133-145 [facility] Comment on above: Result Comment: Canc elled via OM: Order cancelled - Patient discharged Performed By: #### L 500.2500, L100.0100 ####[facility] [address] [place], [address] CBC W/Diff, Automatedon 07-2 Absolute Neut Normal 2.0-7.7 [facility] Comment on above: Result Comment: Canc elled via OM: Order cancelled - Patient discharged Performed By: #### L 500.2500, L100.0100 ####[facility] [address] [place], [address] HCT Normal 37-47 [facility] Comment on above: Result Comment: Canc elled via OM: Order cancelled - Patient discharged Performed By: #### L 500.2500, L100.0100 ####[facility] [address] [place], [address] HGB Normal 12.0-15.0 [facility] Comment on above: Result Comment: Canc elled via OM: Order cancelled - Patient discharged Performed By: #### L 500.2500, L100.0100 ####[facility] [address] [place], [address] MCH Normal 27.0-32.0 [facility] Comment on above: Result Comment: Canc elled via OM: Order cancelled - Patient discharged Performed By: #### L 500.2500, L100.0100 ####[facility] [address] [place], [address] MCHC Normal 32-36 [facility] Comment on above: Result Comment: Canc elled via OM: Order cancelled - Patient discharged Performed By: #### L 500.2500, L100.0100 ####[facility] [address] [place], [address] MCV Normal 81-99 [facility] Comment on above: Result Comment: Canc elled via OM: Order cancelled - Patient discharged Performed By: #### L 500.2500, L100.0100 ####[facility] [address] [place], [address] NEUT% Normal 47-70 [facility] Comment on above: Result Comment: Canc elled via OM: Order cancelled - Patient discharged Performed By: #### L 500.2500, L100.0100 ####[facility] [address] [place], [address] PLT Normal 150-450 [facility] Comment on above: Result Comment: Canc elled via OM: Order cancelled - Patient discharged Performed By: #### L 500.2500, L100.0100 ####[facility] [address] [place], [address] RBC Normal 4.2-5.4 [facility] Comment on above: Result Comment: Canc elled via OM: Order cancelled - Patient discharged Performed By: #### L 500.2500, L100.0100 ####[facility] [address] [place], [address] RDW CV Normal 11.6-14.6 [facility] Comment on above: Result Comment: Canc elled via OM: Order cancelled - Patient discharged Performed By: #### L 500.2500, L100.0100 ####[facility] [address] [place], [address] RDW SD Normal 35.1-43.9 [facility] Comment on above: Result Comment: Canc elled via OM: Order cancelled - Patient discharged Performed By: #### L 500.2500, L100.0100 ####[facility] [address] [place], [address] WBC Normal 4.4-11.0 [facility] Comment on above: Result Comment: Canc elled via OM: Order cancelled - Patient discharged Performed By: #### L 500.2500, L100.0100 ####[facility] [address] [place], [address] Basic Metabolic Profile (BMP )on 03-26-2025 BUN Normal 4-19 [facility] Comment on above: Result Comment: Canc elled via OM: Order cancelled - Patient discharged Performed By: #### L 500.2500, L100.0100 ####[facility] [address] [place], [address] BUN/CRE Normal 10-20 [facility] Comment on above: Result Comment: Canc elled via OM: Order cancelled - Patient discharged Performed By: #### L 500.2500, L100.0100 ####[facility] [address] [place], [address] Calcium Normal 7.6-11.0 [facility] Comment on above: Result Comment: Canc elled via OM: Order cancelled - Patient discharged Performed By: #### L 500.2500, L100.0100 ####[facility] [address] [place], [address] CL Normal 98-108 [facility] Comment on above: Result Comment: Canc elled via OM: Order cancelled - Patient discharged Performed By: #### L 500.2500, L100.0100 ####[facility] [address] [place], [address] CO2 Normal 21.0-32.0 [facility] Comment on above: Result Comment: Canc elled via OM: Order cancelled - Patient discharged Performed By: #### L 500.2500, L100.0100 ####[facility] [address] [place], [address] CREAT,SERUM Normal 0.70-1.20 [facility] Comment on above: Result Comment: Canc elled via OM: Order cancelled - Patient discharged Performed By: #### L 500.2500, L100.0100 ####[facility] [address] [place], [address] eGFR Normal >60 [facility] Comment on above: Result Comment: Canc elled via OM: Order cancelled - Patient discharged Performed By: #### L 500.2500, L100.0100 ####[facility] [address] [place], [address] GAP Normal 5-15 [facility] Comment on above: Result Comment: Canc elled via OM: Order cancelled - Patient discharged Performed By: #### L 500.2500, L100.0100 ####[facility] [address] [place], [address] GLU Normal 70-99 [facility] Comment on above: Result Comment: Canc elled via OM: Order cancelled - Patient discharged Performed By: #### L 500.2500, L100.0100 ####[facility] [address] [place], [address] Potassium Normal 3.3-5.1 [facility] Comment on above: Result Comment: Canc elled via OM: Order cancelled - Patient discharged Performed By: #### L 500.2500, L100.0100 ####[facility] [address] [place], [address] Basic Metabolic Profile (BMP) Normal 133-145 [facility] Comment on above: Result Comment: Canc elled via OM: Order cancelled - Patient discharged Performed By: #### L 500.2500, L100.0100 ####[facility] [address] [place], [address] CBC W/Diff, Automatedon 07-2 Absolute Neut Normal 2.0-7.7 [facility] Comment on above: Result Comment: Canc elled via OM: Order cancelled - Patient discharged Performed By: #### L 500.2500, L100.0100 ####[facility] [address] [place], [address] HCT Normal 37-47 [facility] Comment on above: Result Comment: Canc elled via OM: Order cancelled - Patient discharged Performed By: #### L 500.2500, L100.0100 ####[facility] [address] [place], [address] HGB Normal 12.0-15.0 [facility] Comment on above: Result Comment: Canc elled via OM: Order cancelled - Patient discharged Performed By: #### L 500.2500, L100.0100 ####[facility] [address] [place], [address] MCH Normal 27.0-32.0 [facility] Comment on above: Result Comment: Canc elled via OM: Order cancelled - Patient discharged Performed By: #### L 500.2500, L100.0100 ####[facility] [address] [place], [address] MCHC Normal 32-36 [facility] Comment on above: Result Comment: Canc elled via OM: Order cancelled - Patient discharged Performed By: #### L 500.2500, L100.0100 ####[facility] [address] [place], [address] MCV Normal 81-99 [facility] Comment on above: Result Comment: Canc elled via OM: Order cancelled - Patient discharged Performed By: #### L 500.2500, L100.0100 ####[facility] [address] [place], [address] NEUT% Normal 47-70 [facility] Comment on above: Result Comment: Canc elled via OM: Order cancelled - Patient discharged Performed By: #### L 500.2500, L100.0100 ####[facility] [address] [place], [address] PLT Normal 150-450 [facility] Comment on above: Result Comment: Canc elled via OM: Order cancelled - Patient discharged Performed By: #### L 500.2500, L100.0100 ####[facility] [address] [place], [address] RBC Normal 4.2-5.4 [facility] Comment on above: Result Comment: Canc elled via OM: Order cancelled - Patient discharged Performed By: #### L 500.2500, L100.0100 ####[facility] [address] [place], [address] RDW CV Normal 11.6-14.6 [facility] Comment on above: Result Comment: Canc elled via OM: Order cancelled - Patient discharged Performed By: #### L 500.2500, L100.0100 ####[facility] [address] [place], [address] RDW SD Normal 35.1-43.9 [facility] Comment on above: Result Comment: Canc elled via OM: Order cancelled - Patient discharged Performed By: #### L 500.2500, L100.0100 ####[facility] [address] [place], [address] WBC Normal 4.4-11.0 [facility] Comment on above: Result Comment: Canc elled via OM: Order cancelled - Patient discharged Performed By: #### L 500.2500, L100.0100 ####[facility] [address] [place], [address] Absolute lymphocyte countOrd ered By: Melba Hartmann on 03-25-2025 Lymphocytes Auto (Unsp spec) [#/Vol] 2.04 10*3/uL 0.83-4.51 [facility] Anion gap in Serum or Plasma Ordered By: Melba Hartmann on 03-25-2025 Anion gap [Moles/Vol] 12 mmol/L 5-15 [facility] Automated lymphocyte count a s percentage of total leukocytesOrdered By: Melba Hartmann on 03-25-2025 Lymphocytes/100 WBC Auto (Unsp spec) 26.3 % 19-41 [facility] BUN/creatinine ratioOrdered By: Melba Hartmann on 03-25-2025 Urea nitrogen/Creatinine [Mass ratio] 22.1 mg/mg High - [facility] Basic Metabolic Profile (BMP )on 03-25-2025 BUN/CRE 22.1 RATIO High - [facility] Comment on above: Performed By: #### L 500.2500, L100.0100 ####[facility] [address] [place], [address] Calcium [Mass/Vol] 10.6 mg/dL Normal 7.6-11.0 [facility] Comment on above: Performed By: #### L 500.2500, L100.0100 ####[facility] [address] [place], [address] Chloride [Moles/Vol] 101 mmol/L Normal 98-108 [facility] Comment on above: Performed By: #### L 500.2500, L100.0100 ####[facility] [address] [place], [address] CO2 [Moles/Vol] 26.0 mmol/L Normal 21.0-32.0 [facility] Comment on above: Performed By: #### L 500.2500, L100.0100 ####[facility] [address] [place], [address] Creatinine [Mass/Vol] 1.14 mg/dL Normal 0.70-1.20 [facility] Comment on above: Performed By: #### L 500.2500, L100.0100 ####[facility] [address] [place], [address] ECRCL 38.25 ml/min Low 50-250 [facility] Comment on above: Performed By: #### L 500.2500, L100.0100 ####[facility] [address] [place], [address] GAP 12 Normal 5-15 [facility] Comment on above: Performed By: #### L 500.2500, L100.0100 ####[facility] [address] [place], [address] GFR/1.73 sq M.predicted among non-blacks MDRD (S/P/Bld) [Vol rate/Area] 48 mL/min/{1.73_m2} Low >60 [facility] Comment on above: Result Comment: mL/m in/1.73m2 CKD-EPI Creatinine Equation (2020) Performed By: #### L 500.2500, L100.0100 ####[facility] [address] [place], [address] Glucose [Mass/Vol] 123 mg/dL High 70-99 [facility] Comment on above: Performed By: #### L 500.2500, L100.0100 ####[facility] [address] [place], [address] Potassium [Moles/Vol] 4.8 mmol/L Normal 3.3-5.1 [facility] Comment on above: Performed By: #### L 500.2500, L100.0100 ####[facility] [address] [place], [address] Sodium [Moles/Vol] 139 mmol/L Normal 133-145 [facility] Comment on above: Performed By: #### L 500.2500, L100.0100 ####[facility] [address] [place], [address] Urea nitrogen [Mass/Vol] 25 mg/dL High 4-19 [facility] Comment on above: Performed By: #### L 500.2500, L100.0100 ####[facility] [address] [place], [address] Basophil percentageOrdered B y: Melbanereida Hartmann on 03-25-2025 Basophils/100 WBC (Bld) 0.4 % 0-[address] [facility] Bedside Glucoseon 03-25-2025 FINGERSTICK GLU 193 mg/dL High 74-106 [facility] Comment on above: Result Comment: KATARINA GARY OF PATIENT CARE PER NURSING PROTOCOL Performed By: #### L 501.080 ####[facility] [address] [place], [address] FINGERSTICK GLU 164 mg/dL High 74-106 [facility] Comment on above: Result Comment: KATARINA GEMENT OF PATIENT CARE PER NURSING PROTOCOL Performed By: #### L 501.080 ####[facility] [address] [place], [address] FINGERSTICK GLU 124 mg/dL High 74-106 [facility] Comment on above: Result Comment: KATARINA GEMENT OF PATIENT CARE PER NURSING PROTOCOL Performed By: #### L 501.080 ####[facility] [address] [place], [address] CBC W/Diff, Automatedon 07-2 6-2024 Absolute Lymph 2.04 X10 3/uL Normal 0.83-4.51 [facility] Comment on above: Performed By: #### L 500.2500, L100.0100 ####[facility] [address] [place], [address] Absolute Neut 4.8 X10 3/uL Normal 2.0-7.7 [facility] Comment on above: Performed By: #### L 500.2500, L100.0100 ####[facility] [address] [place], [address] Basophils/100 WBC (Bld) 0.4 % Normal 0-[address] [facility] Comment on above: Performed By: #### L 500.2500, L100.0100 ####[facility] [address] [place], [address] Eosinophils/100 WBC (Bld) 0.8 % Normal 0-5 [facility] Comment on above: Performed By: #### L 500.2500, L100.0100 ####[facility] [address] [place], [address] Erythrocyte distribution width (RBC) [Ratio] 16.3 % High 11.6-14.6 [facility] Comment on above: Performed By: #### L 500.2500, L100.0100 ####[facility] [address] [place], [address] Hematocrit (Bld) [Volume fraction] 29.7 % Low 37-47 [facility] Comment on above: Performed By: #### L 500.2500, L100.0100 ####[facility] [address] [place], [address] Hemoglobin (Bld) [Mass/Vol] 9.0 g/dL Low 12.0-15.0 [facility] Comment on above: Performed By: #### L 500.2500, L100.0100 ####[facility] [address] [place], [address] IG% 0.800 Normal 0.0-0.9 [facility] Comment on above: Result Comment: IG% - Immature Granulocytes (promyelocytes, myelocytes andmetamyelocytes) > 1% indicates that a LEFT SHIFT is Present. Performed By: #### L 500.2500, L100.0100 ####[facility] [address] [place], [address] Lymphocytes/100 WBC (Bld) 26.3 % Normal 19-41 [facility] Comment on above: Performed By: #### L 500.2500, L100.0100 ####[facility] [address] [place], [address] MCH (RBC) [Entitic mass] 27.2 pg Normal 27.0-32.0 [facility] Comment on above: Performed By: #### L 500.2500, L100.0100 ####[facility] [address] [place], [address] MCHC (RBC) [Mass/Vol] 30.3 g/dL Low 32-36 [facility] Comment on above: Performed By: #### L 500.2500, L100.0100 ####[facility] [address] [place], [address] MCV (RBC) [Entitic vol] 89.7 fL Normal 81-[address] [facility] Comment on above: Performed By: #### L 500.2500, L100.0100 ####[facility] [address] [place], [address] Monocytes/100 WBC (Bld) 10.4 % High 0-[address] [facility] Comment on above: Performed By: #### L 500.2500, L100.0100 ####[facility] [address] [place], [address] Neutrophils/100 WBC (Bld) 61.3 % Normal 47-70 [facility] Comment on above: Performed By: #### L 500.2500, L100.0100 ####[facility] [address] [place], [address] Nucleated RBC (Bld) [#/Vol] 0.3 10*3/uL Normal 0-5 [facility] Comment on above: Performed By: #### L 500.2500, L100.0100 ####[facility] [address] [place], [address] Platelet mean volume (Bld) [Entitic vol] 10.8 fL Normal 6.2-12.0 [facility] Comment on above: Performed By: #### L 500.2500, L100.0100 ####[facility] [address] [place], [address] Platelets (Bld) [#/Vol] 251 10*3/uL Normal 150-450 [facility] Comment on above: Performed By: #### L 500.2500, L100.0100 ####[facility] [address] [place], [address] RBC (Bld) [#/Vol] 3.31 10*6/uL Low 4.2-5.4 [facility] Comment on above: Performed By: #### L 500.2500, L100.0100 ####[facility] [address] [place], [address] RDW SD 53.7 fl High 35.1-43.9 [facility] Comment on above: Performed By: #### L 500.2500, L100.0100 ####[facility] [address] [place], [address] WBC (Bld) [#/Vol] 7.8 10*3/uL Normal 4.4-11.0 [facility] Comment on above: Performed By: #### L 500.2500, L100.0100 ####[facility] [address] [facility] [place], [address] Carbon dioxide, total [Moles /volume] in Central venous bloodOrdered By: Melba Hartmann on 03-25-2025 CO2 [Moles/Vol] 26.0 mmol/L 21.0-32.0 [facility] Chloride assayOrdered By: Na na Mary Kate on 03-25-2025 Chloride [Moles/Vol] 101 mmol/L 98-108 [facility] Discharge Instructionon 03-01 Discharge Instruction Normal [facility] Eosinophil percentageOrdered By: Melba Hartmann on 03-25-2025 Eosinophils/100 WBC (Bld) 0.8 % 0-5 [facility] Erythrocyte distribution wid th ratioOrdered By: Melba Hartmann on 03-25-2025 Erythrocyte distribution width (RBC) [Ratio] 16.3 % High 11.6-14.6 [facility] Erythrocyte distribution wid th standard deviationOrdered By: Melba Hartmann on 03-25-2025 Erythrocyte distribution width (RBC) [Ratio] 53.7 fl High 35.1-43.9 [facility] Glomerular filtration rate ( GFR) estimation/1.73 sq m using serum, plasma, or whole bOrdered By: Melba Hartmann on 03-25-2025 GFR/1.73 sq M.predicted among non-blacks MDRD (S/P/Bld) [Vol rate/Area] 48 mL/min/{1.73_m2} Low >60 [facility] Glucose measurement at bedsi deOrdered By: Melba Hartmann on 03-25-2025 Glucose [Mass/Vol] 193 mg/dL High 74-106 [facility] Hematocrit Auto (Bld) [Volum e fraction]Ordered By: Melba Hartmann on 03-25-2025 Hematocrit (Bld) [Volume fraction] 29.7 % Low 37-47 [facility] Hemoglobin measurementOrdere d By: Melba Hartmann on 03-25-2025 Hemoglobin (Bld) [Mass/Vol] 9.0 g/dL Low 12.0-15.0 [facility] Immature granulocytes/100 WB C Auto (Bld)Ordered By: Melba Hartmann on 03-25-2025 Immature granulocytes/100 WBC (Bld) 0.800 % 0.0-0.9 [facility] MCV (mean corpuscular volume ) determinationOrdered By: Melba Hartmann on 03-25-2025 MCV (RBC) [Entitic vol] 89.7 fL 81-[address] [facility] Mean corpuscular hemoglobin (MCH) determinationOrdered By: Melba Hartmann on 03-25-2025 MCH (RBC) [Entitic mass] 27.2 pg 27.0-32.0 [facility] Monocyte percentageOrdered B y: Melba Hartmann on 03-25-2025 Monocytes/100 WBC (Bld) 10.4 % High 0-[address] [facility] Neutrophil percentageOrdered By: Melba Hartmann on 03-25-2025 Neutrophils/100 WBC (Bld) 61.3 % 47-70 [facility] Platelet countOrdered By: Ewelina Hartmann on 03-25-2025 Platelets (Bld) [#/Vol] 251 10*3/uL 150-450 [facility] Potassium measurement (mass/ volume)Ordered By: Melba Hartmann on 03-25-2025 Potassium (Unsp spec) [Mass/Vol] 4.8 mmol/L 3.3-5.1 [facility] RBC Auto (Bld) [#/Vol]Ordere d By: Melba Hartmann on 03-25-2025 RBC (Bld) [#/Vol] 3.31 10*6/uL Low 4.2-5.4 [facility] Serum creatinine measurement (mass/volume)Ordered By: Melba Hartmann on 03-25-2025 Creatinine [Mass/Vol] 1.14 mg/dL 0.70-1.20 [facility] Serum glucose measurement (m ass/volume)Ordered By: Melba Hartmann on 03-25-2025 Glucose [Mass/Vol] 123 mg/dL High 70-99 [facility] Serum or plasma calcium melanie urement (mass/volume)Ordered By: Melba Hartmann on 03-25-2025 Calcium [Mass/Vol] 10.6 mg/dL 7.6-11.0 [facility] Serum or plasma urea nitroge n measurement (mass/volume)Ordered By: Melba Hartmann on 03-25-2025 Urea nitrogen [Mass/Vol] 25 mg/dL High 4-19 [facility] Sodium levelOrdered By: Melba Hartmann on 03-25-2025 Sodium [Moles/Vol] 139 mmol/L 133-145 [facility] White blood cell (WBC) count Ordered By: Melba Hartmann on 03-25-2025 WBC (Bld) [#/Vol] 7.8 10*3/uL 4.4-11.0 [facility] Basic Metabolic Profile (BMP )on 03-24-2025 BUN/CRE 19.7 RATIO Normal 10-20 [facility] Comment on above: Performed By: #### L 100.0100, L500.2500 ####[facility] [address] [place], [address] Calcium [Mass/Vol] 10.5 mg/dL Normal 7.6-11.0 [facility] Comment on above: Performed By: #### L 100.0100, L500.2500 ####[facility] [address] [place], [address] Chloride [Moles/Vol] 97 mmol/L Low 98-108 [facility] Comment on above: Performed By: #### L 100.0100, L500.2500 ####[facility] [address] [place], [address] CO2 [Moles/Vol] 27.0 mmol/L Normal 21.0-32.0 [facility] Comment on above: Performed By: #### L 100.0100, L500.2500 ####[facility] [address] [place], [address] Creatinine [Mass/Vol] 1.21 mg/dL High 0.70-1.20 [facility] Comment on above: Performed By: #### L 100.0100, L500.2500 ####[facility] [address] [place], [address] ECRCL 35.44 ml/min Low 50-250 [facility] Comment on above: Performed By: #### L 100.0100, L500.2500 ####[facility] [address] [place], [address] GAP 11 Normal 5-15 [facility] Comment on above: Performed By: #### L 100.0100, L500.2500 ####[facility] [address] [place], [address] GFR/1.73 sq M.predicted among non-blacks MDRD (S/P/Bld) [Vol rate/Area] 45 mL/min/{1.73_m2} Low >60 [facility] Comment on above: Result Comment: mL/m in/1.73m2 CKD-EPI Creatinine Equation (2020) Performed By: #### L 100.0100, L500.2500 ####[facility] [address] [place], [address] Glucose [Mass/Vol] 165 mg/dL High 70-99 [facility] Comment on above: Performed By: #### L 100.0100, L500.2500 ####[facility] [address] [place], [address] Potassium [Moles/Vol] 4.8 mmol/L Normal 3.3-5.1 [facility] Comment on above: Performed By: #### L 100.0100, L500.2500 ####[facility] [address] [place], [address] Sodium [Moles/Vol] 135 mmol/L Normal 133-145 [facility] Comment on above: Performed By: #### L 100.0100, L500.2500 ####[facility] [address] [place], [address] Urea nitrogen [Mass/Vol] 24 mg/dL High 4-19 [facility] Comment on above: Performed By: #### L 100.0100, L500.2500 ####[facility] [address] [place], [address] Bedside Glucoseon 03-24-2025 FINGERSTICK GLU 294 mg/dL High 74-106 [facility] Comment on above: Result Comment: KATARINA GEMENT OF PATIENT CARE PER NURSING PROTOCOL Performed By: #### L 501.080 ####[facility] [address] [place], [address] FINGERSTICK GLU 311 mg/dL High 74-106 [facility] Comment on above: Result Comment: KATARINA GEMENT OF PATIENT CARE PER NURSING PROTOCOL Performed By: #### L 501.080 ####[facility] [address] [place], [address] FINGERSTICK GLU 132 mg/dL High 74-106 [facility] Comment on above: Result Comment: KATARINA GEMENT OF PATIENT CARE PER NURSING PROTOCOL Performed By: #### L 501.080 ####[facility] [address] [place], [address] FINGERSTICK GLU 156 mg/dL High 74-106 [facility] Comment on above: Result Comment: KATARINA GEMENT OF PATIENT CARE PER NURSING PROTOCOL Performed By: #### L 501.080 ####[facility] [address] [place], [address] CBC W/Diff, Automatedon 07-2 5-2024 Absolute Lymph 1.88 X10 3/uL Normal 0.83-4.51 [facility] Comment on above: Performed By: #### L 100.0100, L500.2500 ####[facility] [address] [place], [address] Absolute Neut 6.1 X10 3/uL Normal 2.0-7.7 [facility] Comment on above: Performed By: #### L 100.0100, L500.2500 ####[facility] [address] [place], [address] Basophils/100 WBC (Bld) 0.3 % Normal 0-[address] [facility] Comment on above: Performed By: #### L 100.0100, L500.2500 ####[facility] [address] [place], [address] Eosinophils/100 WBC (Bld) 0.8 % Normal 0-5 [facility] Comment on above: Performed By: #### L 100.0100, L500.2500 ####[facility] [address] [place], [address] Erythrocyte distribution width (RBC) [Ratio] 16.4 % High 11.6-14.6 [facility] Comment on above: Performed By: #### L 100.0100, L500.2500 ####[facility] [address] [place], [address] Hematocrit (Bld) [Volume fraction] 29.7 % Low 37-47 [facility] Comment on above: Performed By: #### L 100.0100, L500.2500 ####[facility] [address] [place], [address] Hemoglobin (Bld) [Mass/Vol] 9.1 g/dL Low 12.0-15.0 [facility] Comment on above: Performed By: #### L 100.0100, L500.2500 ####[facility] [address] [place], [address] IG% 0.300 Normal 0.0-0.9 [facility] Comment on above: Result Comment: IG% - Immature Granulocytes (promyelocytes, myelocytes andmetamyelocytes) > 1% indicates that a LEFT SHIFT is Present. Performed By: #### L 100.0100, L500.2500 ####[facility] [address] [place], [address] Lymphocytes/100 WBC (Bld) 21.3 % Normal 19-41 [facility] Comment on above: Performed By: #### L 100.0100, L500.2500 ####[facility] [address] [place], [address] MCH (RBC) [Entitic mass] 26.6 pg Low 27.0-32.0 [facility] Comment on above: Performed By: #### L 100.0100, L500.2500 ####[facility] [address] [place], [address] MCHC (RBC) [Mass/Vol] 30.6 g/dL Low 32-36 [facility] Comment on above: Performed By: #### L 100.0100, L500.2500 ####[facility] [address] [place], [address] MCV (RBC) [Entitic vol] 86.8 fL Normal 81-[address] [facility] Comment on above: Performed By: #### L 100.0100, L500.2500 ####[facility] [address] [place], [address] Monocytes/100 WBC (Bld) 8.5 % Normal 0-[address] [facility] Comment on above: Performed By: #### L 100.0100, L500.2500 ####[facility] [address] [place], [address] Neutrophils/100 WBC (Bld) 68.8 % Normal 47-70 [facility] Comment on above: Performed By: #### L 100.0100, L500.2500 ####[facility] [address] [place], [address] Nucleated RBC (Bld) [#/Vol] 0 10*3/uL Normal 0-5 [facility] Comment on above: Performed By: #### L 100.0100, L500.2500 ####[facility] [address] [place], [address] Platelet mean volume (Bld) [Entitic vol] 10.7 fL Normal 6.2-12.0 [facility] Comment on above: Performed By: #### L 100.0100, L500.2500 ####[facility] [address] [place], [address] Platelets (Bld) [#/Vol] 288 10*3/uL Normal 150-450 [facility] Comment on above: Performed By: #### L 100.0100, L500.2500 ####[facility] [address] [place], [address] RBC (Bld) [#/Vol] 3.42 10*6/uL Low 4.2-5.4 [facility] Comment on above: Performed By: #### L 100.0100, L500.2500 ####[facility] [address] [place], [address] RDW SD 52.3 fl High 35.1-43.9 [facility] Comment on above: Performed By: #### L 100.0100, L500.2500 ####[facility] [address] [place], [address] WBC (Bld) [#/Vol] 8.8 10*3/uL Normal 4.4-11.0 [facility] Comment on above: Performed By: #### L 100.0100, L500.2500 ####[facility] [address] [place], [address] Urine Cultureon 03-24-2025 URC Normal [facility] Comment on above: Performed By: #### M 100.2200 ####[facility] [address] [place], [address] Basic Metabolic Profile (BMP )on 03-23-2025 BUN/CRE 15.2 RATIO Normal 10-20 [facility] Comment on above: Performed By: #### L 500.2500, L100.0100 ####[facility] [address] [place], [address] Calcium [Mass/Vol] 10.2 mg/dL Normal 7.6-11.0 [facility] Comment on above: Performed By: #### L 500.2500, L100.0100 ####[facility] [address] [place], [address] Chloride [Moles/Vol] 98 mmol/L Normal 98-108 [facility] Comment on above: Performed By: #### L 500.2500, L100.0100 ####[facility] [address] [place], [address] CO2 [Moles/Vol] 26.0 mmol/L Normal 21.0-32.0 [facility] Comment on above: Performed By: #### L 500.2500, L100.0100 ####[facility] [address] [place], [address] Creatinine [Mass/Vol] 1.25 mg/dL High 0.70-1.20 [facility] Comment on above: Performed By: #### L 500.2500, L100.0100 ####[facility] [address] [place], [address] ECRCL 33.86 ml/min Low 50-250 [facility] Comment on above: Performed By: #### L 500.2500, L100.0100 ####[facility] [address] [place], [address] GAP 8 Normal 5-15 [facility] Comment on above: Performed By: #### L 500.2500, L100.0100 ####[facility] [address] [place], [address] GFR/1.73 sq M.predicted among non-blacks MDRD (S/P/Bld) [Vol rate/Area] 43 mL/min/{1.73_m2} Low >60 [facility] Comment on above: Result Comment: mL/m in/1.73m2 CKD-EPI Creatinine Equation (2020) Performed By: #### L 500.2500, L100.0100 ####[facility] [address] [place], [address] Glucose [Mass/Vol] 198 mg/dL High 70-99 [facility] Comment on above: Performed By: #### L 500.2500, L100.0100 ####[facility] [address] [place], [address] Potassium [Moles/Vol] 5.8 mmol/L High 3.3-5.1 [facility] Comment on above: Performed By: #### L 500.2500, L100.0100 ####[facility] [address] [place], [address] Sodium [Moles/Vol] 132 mmol/L Low 133-145 [facility] Comment on above: Performed By: #### L 500.2500, L100.0100 ####[facility] [address] [place], [address] Urea nitrogen [Mass/Vol] 19 mg/dL Normal 4-19 [facility] Comment on above: Performed By: #### L 500.2500, L100.0100 ####[facility] [address] [place], [address] Bedside Glucoseon - FINGERSTICK GLU 257 mg/dL High 74-106 [facility] Comment on above: Result Comment: KATARINA GEMENT OF PATIENT CARE PER NURSING PROTOCOL Performed By: #### L 501.080 ####[facility] [address] [place], [address] FINGERSTICK GLU 251 mg/dL High 74-106 [facility] Comment on above: Result Comment: KATARINA GEMENT OF PATIENT CARE PER NURSING PROTOCOL Performed By: #### L 501.080 ####[facility] [address] [place], [address] FINGERSTICK GLU 232 mg/dL High 74-106 [facility] Comment on above: Result Comment: KATARINA GEMENT OF PATIENT CARE PER NURSING PROTOCOL Performed By: #### L 501.080 ####[facility] [address] [place], [address] FINGERSTICK GLU 228 mg/dL High -106 [facility] Comment on above: Result Comment: KATARINA GEMENT OF PATIENT CARE PER NURSING PROTOCOL Performed By: #### L 501.080 ####[facility] [address] [place], [address] CBC W/Diff, Automatedon 07-2 Absolute Lymph 1.21 X10 3/uL Normal 0.83-4.51 [facility] Comment on above: Performed By: #### L 500.2500, L100.0100 ####[facility] [address] [place], [address] Absolute Neut 5.6 X10 3/uL Normal 2.0-7.7 [facility] Comment on above: Performed By: #### L 500.2500, L100.0100 ####[facility] [address] [place], [address] Basophils/100 WBC (Bld) 0.1 % Normal 0-[address] [facility] Comment on above: Performed By: #### L 500.2500, L100.0100 ####[facility] [address] [place], [address] Eosinophils/100 WBC (Bld) 0.0 % Normal 0-5 [facility] Comment on above: Performed By: #### L 500.2500, L100.0100 ####[facility] [address] [place], [address] Erythrocyte distribution width (RBC) [Ratio] 16.0 % High 11.6-14.6 [facility] Comment on above: Performed By: #### L 500.2500, L100.0100 ####[facility] [address] [place], [address] Hematocrit (Bld) [Volume fraction] 28.0 % Low 37-47 [facility] Comment on above: Performed By: #### L 500.2500, L100.0100 ####[facility] [address] [place], [address] Hemoglobin (Bld) [Mass/Vol] 8.8 g/dL Low 12.0-15.0 [facility] Comment on above: Performed By: #### L 500.2500, L100.0100 ####[facility] [address] [place], [address] IG% 0.500 Normal 0.0-0.9 [facility] Comment on above: Result Comment: IG% - Immature Granulocytes (promyelocytes, myelocytes andmetamyelocytes) > 1% indicates that a LEFT SHIFT is Present. Performed By: #### L 500.2500, L100.0100 ####[facility] [address] [place], [address] Lymphocytes/100 WBC (Bld) 16.5 % Low 19-41 [facility] Comment on above: Performed By: #### L 500.2500, L100.0100 ####[facility] [address] [place], [address] MCH (RBC) [Entitic mass] 27.0 pg Normal 27.0-32.0 [facility] Comment on above: Performed By: #### L 500.2500, L100.0100 ####[facility] [address] [place], [address] MCHC (RBC) [Mass/Vol] 31.4 g/dL Low 32-36 [facility] Comment on above: Performed By: #### L 500.2500, L100.0100 ####[facility] [address] [place], [address] MCV (RBC) [Entitic vol] 85.9 fL Normal 81-99 [facility] Comment on above: Performed By: #### L 500.2500, L100.0100 ####[facility] [address] [place], [address] Monocytes/100 WBC (Bld) 6.8 % Normal 0-10 [facility] Comment on above: Performed By: #### L 500.2500, L100.0100 ####[facility] [address] [place], [address] Neutrophils/100 WBC (Bld) 76.1 % High 47-70 [facility] Comment on above: Performed By: #### L 500.2500, L100.0100 ####[facility] [address] [place], [address] Nucleated RBC (Bld) [#/Vol] 0 10*3/uL Normal 0-5 [facility] Comment on above: Performed By: #### L 500.2500, L100.0100 ####[facility] [address] [place], [address] Platelet mean volume (Bld) [Entitic vol] 10.7 fL Normal 6.2-12.0 [facility] Comment on above: Performed By: #### L 500.2500, L100.0100 ####[facility] [address] [place], [address] Platelets (Bld) [#/Vol] 274 10*3/uL Normal 150-450 [facility] Comment on above: Performed By: #### L 500.2500, L100.0100 ####[facility] [address] [place], [address] RBC (Bld) [#/Vol] 3.26 10*6/uL Low 4.2-5.4 [facility] Comment on above: Performed By: #### L 500.2500, L100.0100 ####[facility] [address] [place], [address] RDW SD 50.8 fl High 35.1-43.9 [facility] Comment on above: Performed By: #### L 500.2500, L100.0100 ####[facility] [address] [place], [address] WBC (Bld) [#/Vol] 7.4 10*3/uL Normal 4.4-11.0 [facility] Comment on above: Performed By: #### L 500.2500, L100.0100 ####[facility] [address] [place], [address] Potassiumon 03-23-2025 Potassium [Moles/Vol] 5.2 mmol/L High 3.3-5.1 [facility] Comment on above: Performed By: #### L 501.5600 ####[facility] [address] [place], [address] Bedside Glucoseon 03-22-2025 FINGERSTICK GLU 243 mg/dL High 74-106 [facility] Comment on above: Result Comment: KATARINA GEMENT OF PATIENT CARE PER NURSING PROTOCOL Performed By: #### L 501.080 ####[facility] [address] [place], [address] FINGERSTICK GLU 232 mg/dL High 74-106 [facility] Comment on above: Result Comment: KATARINA GEMENT OF PATIENT CARE PER NURSING PROTOCOL Performed By: #### L 501.080 ####[facility] [address] [place], [address] FINGERSTICK GLU 131 mg/dL High -106 [facility] Comment on above: Result Comment: KATARINA GEMENT OF PATIENT CARE PER NURSING PROTOCOL Performed By: #### L 501.080 ####[facility] [address] [place], [address] FINGERSTICK GLU 139 mg/dL High -106 [facility] Comment on above: Result Comment: KATARINA GEMENT OF PATIENT CARE PER NURSING PROTOCOL Performed By: #### L 501.080 ####[facility] [address] [place], [address] Bilirubin, totalOrdered By: Abigail Foster on 03-22-2025 Bilirubin [Mass/Vol] 0.21 mg/dL 0.00-1.30 [facility] Blood manual differential co mment interpretation (narrative result)Ordered By: Abigail Foster on 03-22-2025 Manual differential comment Daniel (Bld) [Interp] SCANNED [facility] CBC W/Diff, Automatedon 03-01 SMEAR COMMENT SCANNED Normal [facility] Comment on above: Performed By: #### L 100.0100, L500.4050 ####[facility] [address] [place], [address] Comprehensive Metabolic Prof ilon 03-22-2025 Albumin [Mass/Vol] 3.0 g/dL Low 3.4-4.8 [facility] Comment on above: Performed By: #### L 100.0100, L500.4050 ####[facility] [address] [place], [address] Albumin/Globulin [Mass ratio] 1.0 {ratio} Normal 0.9-2.4 [facility] Comment on above: Performed By: #### L 100.0100, L500.4050 ####[facility] [address] [place], [address] ALK PHOS 68 U/L Normal 35-104 [facility] Comment on above: Performed By: #### L 100.0100, L500.4050 ####[facility] [address] [place], [address] ALT [Catalytic activity/Vol] 8 U/L Normal <=34 [facility] Comment on above: Performed By: #### L 100.0100, L500.4050 ####[facility] [address] [place], [address] AST [Catalytic activity/Vol] 19 U/L Normal <=31 [facility] Comment on above: Performed By: #### L 100.0100, L500.4050 ####[facility] [address] [place], [address] Bilirubin [Mass/Vol] 0.21 mg/dL Normal 0.00-1.30 [facility] Comment on above: Performed By: #### L 100.0100, L500.4050 ####[facility] [address] [place], [address] BUN/CRE 18.4 RATIO Normal 10-20 [facility] Comment on above: Performed By: #### L 100.0100, L500.4050 ####[facility] [address] [place], [address] Calcium [Mass/Vol] 10.0 mg/dL Normal 7.6-11.0 [facility] Comment on above: Performed By: #### L 100.0100, L500.4050 ####[facility] [address] [place], [address] Chloride [Moles/Vol] 100 mmol/L Normal 98-108 [facility] Comment on above: Performed By: #### L 100.0100, L500.4050 ####[facility] [address] [place], [address] CO2 [Moles/Vol] 25.4 mmol/L Normal 21.0-32.0 [facility] Comment on above: Performed By: #### L 100.0100, L500.4050 ####[facility] [address] [place], [address] Creatinine [Mass/Vol] 0.93 mg/dL Normal 0.70-1.20 [facility] Comment on above: Performed By: #### L 100.0100, L500.4050 ####[facility] [address] [place], [address] ECRCL 44.58 ml/min Low 50-250 [facility] Comment on above: Performed By: #### L 100.0100, L500.4050 ####[facility] [address] [place], [address] GAP 10 Normal 5-15 [facility] Comment on above: Performed By: #### L 100.0100, L500.4050 ####[facility] [address] [place], [address] GFR/1.73 sq M.predicted among non-blacks MDRD (S/P/Bld) [Vol rate/Area] 62 mL/min/{1.73_m2} Normal >60 [facility] Comment on above: Result Comment: mL/m in/1.73m2 CKD-EPI Creatinine Equation (2020) Performed By: #### L 100.0100, L500.4050 ####[facility] [address] [place], [address] Globulin (S) [Mass/Vol] 3.1 g/dL Normal 2.2-4.2 [facility] Comment on above: Performed By: #### L 100.0100, L500.4050 ####[facility] [address] [place], [address] Glucose [Mass/Vol] 144 mg/dL High 70-99 [facility] Comment on above: Performed By: #### L 100.0100, L500.4050 ####[facility] [address] [place], [address] Potassium [Moles/Vol] 4.2 mmol/L Normal 3.3-5.1 [facility] Comment on above: Performed By: #### L 100.0100, L500.4050 ####[facility] [address] [place], [address] Sodium [Moles/Vol] 135 mmol/L Normal 133-145 [facility] Comment on above: Performed By: #### L 100.0100, L500.4050 ####[facility] [address] [place], [address] T PROT 6.1 g/dL Normal 5.9-8.4 [facility] Comment on above: Performed By: #### L 100.0100, L500.4050 ####[facility] [address] [place], [address] Urea nitrogen [Mass/Vol] 17 mg/dL Normal 4-19 [facility] Comment on above: Performed By: #### L 100.0100, L500.4050 ####[facility] [address] [place], [address] No Panel InformationOrdered By: Abigail Foster on 03-22-2025 19 U/L <32 [facility] Serum globulin measurementOr dered By: Abigail Foster on 03-22-2025 Globulin (S) [Mass/Vol] 3.1 g/dL 2.2-4.[address] [facility] Serum or plasma alanine kelley otransferase (ALT) measurementOrdered By: Abigail Kristin on 03-22-2025 ALT [Catalytic activity/Vol] 8 U/L <35 [facility] Serum or plasma albumin melanie urement (mass/volume)Ordered By: Abigail Kristin on 03-22-2025 Albumin [Mass/Vol] 3.0 g/dL Low 3.4-4.8 [facility] Serum or plasma albumin/glob ulin mass ratioOrdered By: Abigail Kristin on 03-22-2025 Albumin/Globulin [Mass ratio] 1.0 {ratio} 0.9-2.4 [facility] Serum or plasma alkaline lissa sphatase measurementOrdered By: Abigail Foster on 03-22-2025 ALP [Catalytic activity/Vol] 68 U/L 35-104 [facility] Total proteinOrdered By: Aut [facility] Kristin on 03-22-2025 Protein [Mass/Vol] 6.1 g/dL 5.9-8.4 [facility] Abdomen/Pelvis W IV Cont ONL Yon 03-21-2025 Abdomen/Pelvis W IV Cont ONLY Normal [facility] Absolute lymphocyte countOrd ered By: Noé Currie on 03-21-2025 Lymphocytes Auto (Unsp spec) [#/Vol] 2.26 10*3/uL 0.83-4.51 [facility] Anion gap in Serum or Plasma Ordered By: Noé Currie on 03-21-2025 Anion gap [Moles/Vol] 13 mmol/L 5-15 [facility] Automated lymphocyte count a s percentage of total leukocytesOrdered By: Noé Currie on 03-21-2025 Lymphocytes/100 WBC Auto (Unsp spec) 27.1 % 19-41 [facility] BUN/creatinine ratioOrdered By: Noé Currie on 03-21-2025 Urea nitrogen/Creatinine [Mass ratio] 18.2 mg/mg 10-20 [facility] Basic Metabolic Profile (BMP )on 03-21-2025 BUN/CRE 18.2 RATIO Normal 10-20 [facility] Comment on above: Performed By: #### L 500.2500, L100.0100 ####[facility] [address] [place], [address] Calcium [Mass/Vol] 10.5 mg/dL Normal 7.6-11.0 [facility] Comment on above: Performed By: #### L 500.2500, L100.0100 ####[facility] [address] [place], [address] Chloride [Moles/Vol] 98 mmol/L Normal 98-108 [facility] Comment on above: Performed By: #### L 500.2500, L100.0100 ####[facility] [address] [place], [address] CO2 [Moles/Vol] 26.4 mmol/L Normal 21.0-32.0 [facility] Comment on above: Performed By: #### L 500.2500, L100.0100 ####[facility] [address] [place], [address] Creatinine [Mass/Vol] 1.00 mg/dL Normal 0.70-1.20 [facility] Comment on above: Performed By: #### L 500.2500, L100.0100 ####[facility] [address] [place], [address] ECRCL 41.62 ml/min Low 50-250 [facility] Comment on above: Performed By: #### L 500.2500, L100.0100 ####[facility] [address] [place], [address] GAP 13 Normal 5-15 [facility] Comment on above: Performed By: #### L 500.2500, L100.0100 ####[facility] [address] [place], [address] GFR/1.73 sq M.predicted among non-blacks MDRD (S/P/Bld) [Vol rate/Area] 57 mL/min/{1.73_m2} Low >60 [facility] Comment on above: Result Comment: mL/m in/1.73m2 CKD-EPI Creatinine Equation (2020) Performed By: #### L 500.2500, L100.0100 ####[facility] [address] [place], [address] Glucose [Mass/Vol] 128 mg/dL High 70-99 [facility] Comment on above: Performed By: #### L 500.2500, L100.0100 ####[facility] [address] [place], [address] Potassium [Moles/Vol] 4.4 mmol/L Normal 3.3-5.1 [facility] Comment on above: Result Comment: Hemo lysis present, Results??could be affected.?? Performed By: #### L 500.2500, L100.0100 ####[facility] [address] [place], [address] Sodium [Moles/Vol] 137 mmol/L Normal 133-145 [facility] Comment on above: Performed By: #### L 500.2500, L100.0100 ####[facility] [address] [place], [address] Urea nitrogen [Mass/Vol] 18 mg/dL Normal 4-19 [facility] Comment on above: Performed By: #### L 500.2500, L100.0100 ####[facility] [address] [place], [address] Basophil percentageOrdered B y: Noé Currie on 03-21-2025 Basophils/100 WBC (Bld) 0.7 % 0-[address] [facility] Bedside Glucoseon 03-21-2025 FINGERSTICK GLU 114 mg/dL High 74-106 [facility] Comment on above: Result Comment: KATARINA GARY OF PATIENT CARE PER NURSING PROTOCOL Performed By: #### L 501.080 ####[facility] [address] [place], [address] Bilirubin Test strip Ql (U)O rdered By: Ethan Suarez on 03-21-2025 Bilirubin Ql (U) Negative Negative [facility] CBC W/Diff, Automatedon 03-01 Absolute Lymph 2.26 X10 3/uL Normal 0.83-4.51 [facility] Comment on above: Performed By: #### L 500.2500, L100.0100 ####[facility] [address] [place], [address] Absolute Neut 5.2 X10 3/uL Normal 2.0-7.7 [facility] Comment on above: Performed By: #### L 500.2500, L100.0100 ####[facility] [address] [place], [address] Basophils/100 WBC (Bld) 0.7 % Normal 0-[address] [facility] Comment on above: Performed By: #### L 500.2500, L100.0100 ####[facility] [address] [place], [address] Eosinophils/100 WBC (Bld) 0.8 % Normal 0-5 [facility] Comment on above: Performed By: #### L 500.2500, L100.0100 ####[facility] [address] [place], [address] Erythrocyte distribution width (RBC) [Ratio] 16.4 % High 11.6-14.6 [facility] Comment on above: Performed By: #### L 500.2500, L100.0100 ####[facility] [address] [place], [address] Hematocrit (Bld) [Volume fraction] 31.3 % Low 37-47 [facility] Comment on above: Performed By: #### L 500.2500, L100.0100 ####[facility] [address] [place], [address] Hemoglobin (Bld) [Mass/Vol] 9.7 g/dL Low 12.0-15.0 [facility] Comment on above: Performed By: #### L 500.2500, L100.0100 ####[facility] [address] [place], [address] IG% 0.500 Normal 0.0-0.9 [facility] Comment on above: Result Comment: IG% - Immature Granulocytes (promyelocytes, myelocytes andmetamyelocytes) > 1% indicates that a LEFT SHIFT is Present. Performed By: #### L 500.2500, L100.0100 ####[facility] [address] [place], [address] Lymphocytes/100 WBC (Bld) 27.1 % Normal 19-41 [facility] Comment on above: Performed By: #### L 500.2500, L100.0100 ####[facility] [address] [place], [address] MCH (RBC) [Entitic mass] 27.0 pg Normal 27.0-32.0 [facility] Comment on above: Performed By: #### L 500.2500, L100.0100 ####[facility] [address] [place], [address] MCHC (RBC) [Mass/Vol] 31.0 g/dL Low 32-36 [facility] Comment on above: Performed By: #### L 500.2500, L100.0100 ####[facility] [address] [place], [address] MCV (RBC) [Entitic vol] 87.2 fL Normal 81-[address] [facility] Comment on above: Performed By: #### L 500.2500, L100.0100 ####[facility] [address] [place], [address] Monocytes/100 WBC (Bld) 8.6 % Normal 0-[address] [facility] Comment on above: Performed By: #### L 500.2500, L100.0100 ####[facility] [address] [place], [address] Neutrophils/100 WBC (Bld) 62.3 % Normal 47-70 [facility] Comment on above: Performed By: #### L 500.2500, L100.0100 ####[facility] [address] [place], [address] Nucleated RBC (Bld) [#/Vol] 0 10*3/uL Normal 0-5 [facility] Comment on above: Performed By: #### L 500.2500, L100.0100 ####[facility] [address] [place], [address] Platelet mean volume (Bld) [Entitic vol] 11.1 fL Normal 6.2-12.0 [facility] Comment on above: Performed By: #### L 500.2500, L100.0100 ####[facility] [address] [place], [address] Platelets (Bld) [#/Vol] 304 10*3/uL Normal 150-450 [facility] Comment on above: Performed By: #### L 500.2500, L100.0100 ####[facility] [address] [place], [address] RBC (Bld) [#/Vol] 3.59 10*6/uL Low 4.2-5.4 [facility] Comment on above: Performed By: #### L 500.2500, L100.0100 ####[facility] [address] [place], [address] RDW SD 52.5 fl High 35.1-43.9 [facility] Comment on above: Performed By: #### L 500.2500, L100.0100 ####[facility] [address] [place], [address] WBC (Bld) [#/Vol] 8.4 10*3/uL Normal 4.4-11.0 [facility] Comment on above: Performed By: #### L 500.2500, L100.0100 ####[facility] [address] [place], [address] Carbon dioxide, total [Moles /volume] in Central venous bloodOrdered By: Noé Currie on 03-21-2025 CO2 [Moles/Vol] 26.4 mmol/L 21.0-32.0 [facility] Chloride assayOrdered By: Natividad Currie on 03-21-2025 Chloride [Moles/Vol] 98 mmol/L 98-108 [facility] Emergency Department Summary on 03-21-2025 Emergency Department Summary Normal [facility] Eosinophil percentageOrdered By: Noé Currie on 03-21-2025 Eosinophils/100 WBC (Bld) 0.8 % 0-5 [facility] Erythrocyte distribution wid th ratioOrdered By: Noé Currie on 03-21-2025 Erythrocyte distribution width (RBC) [Ratio] 16.4 % High 11.6-14.6 [facility] Erythrocyte distribution wid th standard deviationOrdered By: Noé Currie on 03-21-2025 Erythrocyte distribution width (RBC) [Ratio] 52.5 fl High 35.1-43.9 [facility] Glomerular filtration rate ( GFR) estimation/1.73 sq m using serum, plasma, or whole bOrdered By: Noé Currie on 03-21-2025 GFR/1.73 sq M.predicted among non-blacks MDRD (S/P/Bld) [Vol rate/Area] 57 mL/min/{1.73_m2} Low >60 [facility] Glucose measurement at bedsi deOrdered By: Noé Currie on 03-21-2025 Glucose [Mass/Vol] 114 mg/dL High 74-106 [facility] H AND P Exam - Hospitaliston 03-21-2025 H&P Exam - Hospitalist Normal [facility] Hematocrit Auto (Bld) [Volum e fraction]Ordered By: Noé Currie on 03-21-2025 Hematocrit (Bld) [Volume fraction] 31.3 % Low 37-47 [facility] Hemoglobin measurementOrdere d By: Noé Currie on 03-21-2025 Hemoglobin (Bld) [Mass/Vol] 9.7 g/dL Low 12.0-15.0 [facility] Immature granulocytes/100 WB C Auto (Bld)Ordered By: Noé Currie on 03-21-2025 Immature granulocytes/100 WBC (Bld) 0.500 % 0.0-0.9 [facility] Ketones Test strip Ql (U)Ord ered By: Ethan Suarez on 03-21-2025 Ketones Ql (U) Negative Negative [facility] MCV (mean corpuscular volume ) determinationOrdered By: Noé Currie on 03-21-2025 MCV (RBC) [Entitic vol] 87.2 fL 81-[address] [facility] Mean corpuscular hemoglobin (MCH) determinationOrdered By: Noé Currie on 03-21-2025 MCH (RBC) [Entitic mass] 27.0 pg 27.0-32.0 [facility] Monocyte percentageOrdered B y: Noé Currie on 03-21-2025 Monocytes/100 WBC (Bld) 8.6 % 0-[address] [facility] Mucus LM Ql (Urine sed)Order ed By: Ethan Suarez on 03-21-2025 Mucus Ql (Urine sed) 0 SEEN /hpf [facility] Neutrophil percentageOrdered By: Noé Currie on 03-21-2025 Neutrophils/100 WBC (Bld) 62.3 % 47-70 [facility] Nitrite Test strip Ql (U)Ord ered By: Ethan Suarez on 03-21-2025 Nitrite Ql (U) Negative Negative [facility] Platelet countOrdered By: Natividad Currie on 03-21-2025 Platelets (Bld) [#/Vol] 304 10*3/uL 150-450 [facility] Potassium measurement (mass/ volume)Ordered By: Noé Currie on 03-21-2025 Potassium (Unsp spec) [Mass/Vol] 4.4 mmol/L 3.3-5.1 [facility] Protein Test strip Ql (U)Ord ered By: Ethan Suarez on 03-21-2025 Protein Ql (U) 30 mg/dl High Negative [facility] RBC Auto (Bld) [#/Vol]Ordere d By: Noé Currie on 03-21-2025 RBC (Bld) [#/Vol] 3.59 10*6/uL Low 4.2-5.4 [facility] Serum creatinine measurement (mass/volume)Ordered By: Noé Currie on 03-21-2025 Creatinine [Mass/Vol] 1.00 mg/dL 0.70-1.20 [facility] Serum glucose measurement (m ass/volume)Ordered By: Noé Currie on 03-21-2025 Glucose [Mass/Vol] 128 mg/dL High 70-99 [facility] Serum or plasma calcium melanie urement (mass/volume)Ordered By: Noé Currie on 03-21-2025 Calcium [Mass/Vol] 10.5 mg/dL 7.6-11.0 [facility] Serum or plasma urea nitroge n measurement (mass/volume)Ordered By: Noé Currie on 03-21-2025 Urea nitrogen [Mass/Vol] 18 mg/dL 4-19 [facility] Sodium levelOrdered By: Savage Currie on 03-21-2025 Sodium [Moles/Vol] 137 mmol/L 133-145 [facility] Spine Lumbar without Contras ton 03-21-2025 Spine Lumbar without Contrast Normal [facility] Squamous epithelial cells de tection in urine sediment by light microscopyOrdered By: Ethan Suarez on 03-21-2025 Epithelial cells.squamous LM Ql (Urine sed) 0-5 SEEN /hpf 5-10 [facility] Urinalysis, Completeon 03-21 BACTERIA 1+ /hpf Normal None Seen [facility] Comment on above: Order Comment: COLLE CTOR TO SPECIFY Performed By: #### L 400.0001 ####[facility] [address] [place], [address] RBC 0-5 SEEN Normal 0-5 [facility] Comment on above: Order Comment: MARSHALL CTOR TO SPECIFY Performed By: #### L 400.0001 ####[facility] [address] [place], [address] YEAST 1+ /hpf Normal None Seen [facility] Comment on above: Order Comment: MARSHALL CTOR TO SPECIFY Performed By: #### L 400.0001 ####[facility] [address] [place], [address] EPI,SQUAMOUS 0-5 SEEN Normal 5-10 [facility] Comment on above: Order Comment: MARSHALL CTOR TO SPECIFY Performed By: #### L 400.0001 ####[facility] [address] [place], [address] WBC >100 SEEN Normal 0-5 [facility] Comment on above: Order Comment: MARSHALL CTOR TO SPECIFY Performed By: #### L 400.0001 ####[facility] [address] [place], [address] Mucus Ql (Urine sed) 0 SEEN Normal [facility] Comment on above: Order Comment: MARSHALL CTOR TO SPECIFY Performed By: #### L 400.0001 ####[facility] [address] [place], [address] Urine clarityOrdered By: Robb Suarez on 03-21-2025 Clarity (U) Sl. Cloudy Clear [facility] Urine color determinationOrd ered By: Ethan Suarez on 03-21-2025 Color (U) Yellow Yellow [facility] Urine cultureOrdered By: Robb Suarez on 03-21-2025 Bacteria identified Cx Nom (U) Staphylococcus epidermidis Abnormal [facility] Urine glucose detectionOrder ed By: Ethan Suarez on 03-21-2025 Glucose Ql (U) 1000 mg/dl High Normal [facility] Urine leukocyte esterase det ection by dipstickOrdered By: Ethan Suarez on 03-21-2025 Leukocyte esterase Test strip Ql (U) 500 /ul High Negative [facility] Urine pHOrdered By: Ethan Suarez on 03-21-2025 pH (U) 7.0 [pH] 5.0 - 8.0 [facility] Urine sediment bacteria coun t by microscopy (number/high power field)Ordered By: Ethan Suarez on 03-21-2025 Bacteria LM.HPF (Urine sed) [#/Area] 1 /[HPF] None Seen [facility] Urine sediment yeast count b y microscopy (number/high powered field)Ordered By: Ethan Suarez on 03-21-2025 Yeast LM.HPF (Urine sed) [#/Area] 1 /[HPF] None Seen [facility] Urine specific gravity measu rementOrdered By: Ethan Suarez on 03-21-2025 Specific gravity (U) [Rel density] 1.010 1.002-1.030 [facility] Urine urobilinogen measureme ntOrdered By: Ethan Suarez on 03-21-2025 Urobilinogen Ql (U) Normal mg/dl Normal [facility] White blood cell (WBC) count Ordered By: Noé Currie on 03-21-2025 WBC (Bld) [#/Vol] 8.4 10*3/uL 4.4-11.0 [facility] White blood cell countOrdere d By: Ethan Suarez on 03-21-2025 White blood cell count >100 SEEN /hpf 0-5 [facility] Culture, Blood (WB)on 2024 CUB Blood cultures x2, from two different sites No growth in 5 days. Normal [facility] Comment on above: Performed By: #### L 500.4050, L300.3900, L300.4310, L100.0100, L503.6005, M200.1000 ####[facility] [address] [place], [place], [id number] Cardiovascular stress test r eportOrdered By: Se Good on 03-07-2025 Study report [facility] Work Phone: Stress Reporton 03-07-2025 Stress Report Normal [facility] Urine Cultureon 03-06-2025 URC Normal [facility] Comment on above: Performed By: #### L 400.0001, M100.2200 ####[facility] [address] [place], [address] 12 Lead EKGon 03-04-2025 12 Lead EKG Normal [facility] Abdomen/Pelvis W IV Cont ONL Yon 03-04-2025 Abdomen/Pelvis W IV Cont ONLY Normal [facility] Absolute lymphocyte countOrd ered By: Jeevan Yoder on 03-04-2025 Lymphocytes Auto (Unsp spec) [#/Vol] 1.75 10*3/uL 0.83-4.51 [facility] Activated partial thrombopla stin time (aPTT) in platelet poor plasma by coagulation aOrdered By: Jeevan Yoder on 03-04-2025 aPTT Coag (PPP) [Time] 25.2 s 24.1-36.2 [facility] Amorphous sediment detection in urine sediment by light microscopyOrdered By: Jeevan Yoder on 03-04-2025 Amorphous sediment LM Ql (Urine sed) 3+ [facility] Anion gap in Serum or Plasma Ordered By: Jeevan Yoder on 03-04-2025 Anion gap [Moles/Vol] 11 mmol/L 5-15 [facility] Automated lymphocyte count a s percentage of total leukocytesOrdered By: Jeevan Yoder on 03-04-2025 Lymphocytes/100 WBC Auto (Unsp spec) 24.2 % 19-41 [facility] BUN/creatinine ratioOrdered By: Jeevan Yoder on 03-04-2025 Urea nitrogen/Creatinine [Mass ratio] 18.1 mg/mg 10-20 [facility] Basophil percentageOrdered B y: Jeevan Yoder on 03-04-2025 Basophils/100 WBC (Bld) 0.4 % 0-[address] [facility] Bilirubin Test strip Ql (U)O rdered By: Jeevan Yoder on 03-04-2025 Bilirubin Ql (U) Negative Negative [facility] Bilirubin, totalOrdered By: Jeevan Yoder on 03-04-2025 Bilirubin [Mass/Vol] 0.25 mg/dL 0.00-1.30 [facility] Blood cultureOrdered By: Maeve Yoder on 03-04-2025 Bacteria identified Cx Nom (Bld) No growth in 5 days. [facility] Bacteria identified Cx Nom (Bld) No growth in 5 days. [facility] CBC W/Diff, Automatedon 07-0 Absolute Lymph 1.75 X10 3/uL Normal 0.83-4.51 [facility] Comment on above: Performed By: #### L 500.4050, L300.3900, L300.4310, L100.0100, L503.6005, M200.1000 ####[facility] [address] [place], [address] Absolute Neut 4.8 X10 3/uL Normal 2.0-7.7 [facility] Comment on above: Performed By: #### L 500.4050, L300.3900, L300.4310, L100.0100, L503.6005, M200.1000 ####[facility] [address] [place], [address] Basophils/100 WBC (Bld) 0.4 % Normal 0-[address] [facility] Comment on above: Performed By: #### L 500.4050, L300.3900, L300.4310, L100.0100, L503.6005, M200.1000 ####[facility] [address] [place], [address] Eosinophils/100 WBC (Bld) 1.7 % Normal 0-5 [facility] Comment on above: Performed By: #### L 500.4050, L300.3900, L300.4310, L100.0100, L503.6005, M200.1000 ####[facility] [address] [place], [address] Erythrocyte distribution width (RBC) [Ratio] 16.2 % High 11.6-14.6 [facility] Comment on above: Performed By: #### L 500.4050, L300.3900, L300.4310, L100.0100, L503.6005, M200.1000 ####[facility] [address] [place], [address] Hematocrit (Bld) [Volume fraction] 33.5 % Low 37-47 [facility] Comment on above: Performed By: #### L 500.4050, L300.3900, L300.4310, L100.0100, L503.6005, M200.1000 ####[facility] [address] [place], [address] Hemoglobin (Bld) [Mass/Vol] 10.1 g/dL Low 12.0-15.0 [facility] Comment on above: Performed By: #### L 500.4050, L300.3900, L300.4310, L100.0100, L503.6005, M200.1000 ####[facility] [address] [place], [address] IG% 0.700 Normal 0.0-0.9 [facility] Comment on above: Result Comment: IG% - Immature Granulocytes (promyelocytes, myelocytes andmetamyelocytes) > 1% indicates that a LEFT SHIFT is Present. Performed By: #### L 500.4050, L300.3900, L300.4310, L100.0100, L503.6005, M200.1000 ####[facility] [address] [place], [address] Lymphocytes/100 WBC (Bld) 24.2 % Normal 19-41 [facility] Comment on above: Performed By: #### L 500.4050, L300.3900, L300.4310, L100.0100, L503.6005, M200.1000 ####[facility] [address] [place], [address] MCH (RBC) [Entitic mass] 27.2 pg Normal 27.0-32.0 [facility] Comment on above: Performed By: #### L 500.4050, L300.3900, L300.4310, L100.0100, L503.6005, M200.1000 ####[facility] [address] [place], [address] MCHC (RBC) [Mass/Vol] 30.1 g/dL Low 32-36 [facility] Comment on above: Performed By: #### L 500.4050, L300.3900, L300.4310, L100.0100, L503.6005, M200.1000 ####[facility] [address] [place], [address] MCV (RBC) [Entitic vol] 90.3 fL Normal 81-[address] [facility] Comment on above: Performed By: #### L 500.4050, L300.3900, L300.4310, L100.0100, L503.6005, M200.1000 ####[facility] [address] [place], [address] Monocytes/100 WBC (Bld) 6.9 % Normal 0-10 [facility] Comment on above: Performed By: #### L 500.4050, L300.3900, L300.4310, L100.0100, L503.6005, M200.1000 ####[facility] [address] [place], [address] Neutrophils/100 WBC (Bld) 66.1 % Normal 47-70 [facility] Comment on above: Performed By: #### L 500.4050, L300.3900, L300.4310, L100.0100, L503.6005, M200.1000 ####[facility] [address] [place], [address] Nucleated RBC (Bld) [#/Vol] 0 10*3/uL Normal 0-5 [facility] Comment on above: Performed By: #### L 500.4050, L300.3900, L300.4310, L100.0100, L503.6005, M200.1000 ####[facility] [address] [place], [address] Platelet mean volume (Bld) [Entitic vol] 10.6 fL Normal 6.2-12.0 [facility] Comment on above: Performed By: #### L 500.4050, L300.3900, L300.4310, L100.0100, L503.6005, M200.1000 ####[facility] [address] [place], [address] Platelets (Bld) [#/Vol] 334 10*3/uL Normal 150-450 [facility] Comment on above: Performed By: #### L 500.4050, L300.3900, L300.4310, L100.0100, L503.6005, M200.1000 ####[facility] [address] [place], [address] RBC (Bld) [#/Vol] 3.71 10*6/uL Low 4.2-5.4 [facility] Comment on above: Performed By: #### L 500.4050, L300.3900, L300.4310, L100.0100, L503.6005, M200.1000 ####[facility] [address] [place], [address] RDW SD 52.9 fl High 35.1-43.9 [facility] Comment on above: Performed By: #### L 500.4050, L300.3900, L300.4310, L100.0100, L503.6005, M200.1000 ####[facility] [address] [place], [address] WBC (Bld) [#/Vol] 7.2 10*3/uL Normal 4.4-11.0 [facility] Comment on above: Performed By: #### L 500.4050, L300.3900, L300.4310, L100.0100, L503.6005, M200.1000 ####[facility] [address] [place], [address] Carbon dioxide, total [Moles /volume] in Central venous bloodOrdered By: Jeevan Yoder on 03-04-2025 CO2 [Moles/Vol] 29.0 mmol/L 21.0-32.0 [facility] Chloride assayOrdered By: Kenny Yoder on 03-04-2025 Chloride [Moles/Vol] 97 mmol/L Low 98-108 [facility] Comprehensive Metabolic Prof ilon 03-04-2025 Albumin [Mass/Vol] 3.3 g/dL Low 3.4-4.8 [facility] Comment on above: Performed By: #### L 500.4050, L300.3900, L300.4310, L100.0100, L503.6005, M200.1000 ####[facility] [address] [place], [address] Albumin/Globulin [Mass ratio] 0.9 {ratio} Normal 0.9-2.4 [facility] Comment on above: Performed By: #### L 500.4050, L300.3900, L300.4310, L100.0100, L503.6005, M200.1000 ####[facility] [address] [place], [address] ALK PHOS 79 U/L Normal 35-104 [facility] Comment on above: Performed By: #### L 500.4050, L300.3900, L300.4310, L100.0100, L503.6005, M200.1000 ####[facility] [address] [place], [address] ALT [Catalytic activity/Vol] 25 U/L Normal <=34 [facility] Comment on above: Performed By: #### L 500.4050, L300.3900, L300.4310, L100.0100, L503.6005, M200.1000 ####[facility] [address] [place], [address] AST [Catalytic activity/Vol] 26 U/L Normal <=31 [facility] Comment on above: Performed By: #### L 500.4050, L300.3900, L300.4310, L100.0100, L503.6005, M200.1000 ####[facility] [address] [place], [address] Bilirubin [Mass/Vol] 0.25 mg/dL Normal 0.00-1.30 [facility] Comment on above: Performed By: #### L 500.4050, L300.3900, L300.4310, L100.0100, L503.6005, M200.1000 ####[facility] [address] [place], [address] BUN/CRE 18.1 RATIO Normal 10-20 [facility] Comment on above: Performed By: #### L 500.4050, L300.3900, L300.4310, L100.0100, L503.6005, M200.1000 ####[facility] [address] [place], [address] Calcium [Mass/Vol] 10.7 mg/dL Normal 7.6-11.0 [facility] Comment on above: Performed By: #### L 500.4050, L300.3900, L300.4310, L100.0100, L503.6005, M200.1000 ####[facility] [address] [place], [address] Chloride [Moles/Vol] 97 mmol/L Low 98-108 [facility] Comment on above: Performed By: #### L 500.4050, L300.3900, L300.4310, L100.0100, L503.6005, M200.1000 ####[facility] [address] [place], [address] CO2 [Moles/Vol] 29.0 mmol/L Normal 21.0-32.0 [facility] Comment on above: Performed By: #### L 500.4050, L300.3900, L300.4310, L100.0100, L503.6005, M200.1000 ####[facility] [address] [place], [address] Creatinine [Mass/Vol] 1.29 mg/dL High 0.70-1.20 [facility] Comment on above: Performed By: #### L 500.4050, L300.3900, L300.4310, L100.0100, L503.6005, M200.1000 ####[facility] [address] [place], [address] ECRCL 32.46 ml/min Low 50-250 [facility] Comment on above: Performed By: #### L 500.4050, L300.3900, L300.4310, L100.0100, L503.6005, M200.1000 ####[facility] [address] [place], [address] GAP 11 Normal 5-15 [facility] Comment on above: Performed By: #### L 500.4050, L300.3900, L300.4310, L100.0100, L503.6005, M200.1000 ####[facility] [address] [place], [address] GFR/1.73 sq M.predicted among non-blacks MDRD (S/P/Bld) [Vol rate/Area] 42 mL/min/{1.73_m2} Low >60 [facility] Comment on above: Result Comment: mL/m in/1.73m2 CKD-EPI Creatinine Equation (2020) Performed By: #### L 500.4050, L300.3900, L300.4310, L100.0100, L503.6005, M200.1000 ####[facility] [address] [place], [address] Globulin (S) [Mass/Vol] 3.6 g/dL Normal 2.2-4.2 [facility] Comment on above: Performed By: #### L 500.4050, L300.3900, L300.4310, L100.0100, L503.6005, M200.1000 ####[facility] [address] [place], [address] Glucose [Mass/Vol] 116 mg/dL High 70-99 [facility] Comment on above: Performed By: #### L 500.4050, L300.3900, L300.4310, L100.0100, L503.6005, M200.1000 ####[facility] [address] [place], [address] Potassium [Moles/Vol] 5.0 mmol/L Normal 3.3-5.1 [facility] Comment on above: Performed By: #### L 500.4050, L300.3900, L300.4310, L100.0100, L503.6005, M200.1000 ####[facility] [address] [place], [address] Sodium [Moles/Vol] 136 mmol/L Normal 133-145 [facility] Comment on above: Performed By: #### L 500.4050, L300.3900, L300.4310, L100.0100, L503.6005, M200.1000 ####[facility] [address] [place], [address] T PROT 6.9 g/dL Normal 5.9-8.4 [facility] Comment on above: Performed By: #### L 500.4050, L300.3900, L300.4310, L100.0100, L503.6005, M200.1000 ####[facility] [address] [place], [address] Urea nitrogen [Mass/Vol] 23 mg/dL High 4-19 [facility] Comment on above: Performed By: #### L 500.4050, L300.3900, L300.4310, L100.0100, L503.6005, M200.1000 ####[facility] [address] [place], [place], [address] Emergency Department Summary on 03-04-2025 Emergency Department Summary Normal [facility] Eosinophil percentageOrdered By: Jeevan oYder on 03-04-2025 Eosinophils/100 WBC (Bld) 1.7 % 0-5 [facility] Erythrocyte distribution wid th ratioOrdered By: Jeevan Yoder on 03-04-2025 Erythrocyte distribution width (RBC) [Ratio] 16.2 % High 11.6-14.6 [facility] Erythrocyte distribution wid th standard deviationOrdered By: Jeevan Yoder on 03-04-2025 Erythrocyte distribution width (RBC) [Ratio] 52.9 fl High 35.1-43.9 [facility] Glomerular filtration rate ( GFR) estimation/1.73 sq m using serum, plasma, or whole bOrdered By: Jeevan Yoder on 03-04-2025 GFR/1.73 sq M.predicted among non-blacks MDRD (S/P/Bld) [Vol rate/Area] 42 mL/min/{1.73_m2} Low >60 [facility] Hematocrit Auto (Bld) [Volum e fraction]Ordered By: Jeevan Yoder on 03-04-2025 Hematocrit (Bld) [Volume fraction] 33.5 % Low 37-47 [facility] Hemoglobin measurementOrdere d By: Jeevan Yoder on 03-04-2025 Hemoglobin (Bld) [Mass/Vol] 10.1 g/dL Low 12.0-15.0 [facility] Immature granulocytes/100 WB C Auto (Bld)Ordered By: Jeevan Yoder on 03-04-2025 Immature granulocytes/100 WBC (Bld) 0.700 % 0.0-0.9 [facility] Ketones Test strip Ql (U)Ord ered By: Jeevan Yoder on 03-04-2025 Ketones Ql (U) 5 mg/dl High Negative [facility] Lactic Acidon 03-04-2025 Lactate [Moles/Vol] 2.0 mmol/L Normal 0.0-2.0 [facility] Comment on above: Order Comment: Y Result Comment: Crit ical Result(s) Called at: 2056 by:??ARCHIE LOVE Results read back by same. Performed By: #### L 500.4050, L300.3900, L300.4310, L100.0100, L503.6005, M200.1000 ####[facility] [address] [facility] [place], [address] MCV (mean corpuscular volume ) determinationOrdered By: Jeevan Yoder on 03-04-2025 MCV (RBC) [Entitic vol] 90.3 fL 81-[address] [facility] Mean corpuscular hemoglobin (MCH) determinationOrdered By: Jeevan Yoder on 03-04-2025 MCH (RBC) [Entitic mass] 27.2 pg 27.0-32.0 [facility] Monocyte percentageOrdered B y: Jeevan Yoder on 03-04-2025 Monocytes/100 WBC (Bld) 6.9 % 0-[address] [facility] Mucus LM Ql (Urine sed)Order ed By: Jeevan Yoder on 03-04-2025 Mucus Ql (Urine sed) 0 SEEN /hpf [facility] Neutrophil percentageOrdered By: Jeevan Yoder on 03-04-2025 Neutrophils/100 WBC (Bld) 66.1 % 47-70 [facility] Nitrite Test strip Ql (U)Ord ered By: Jeevan Yoder on 03-04-2025 Nitrite Ql (U) Negative Negative [facility] No Panel InformationOrdered By: Jeevan Yoder on 03-04-2025 26 U/L <32 [facility] Partial Thromboplast Timeon 03-04-2025 aPTT Coag (Bld) [Time] 25.2 s Normal 24.1-36.2 [facility] Comment on above: Performed By: #### L 500.4050, L300.3900, L300.4310, L100.0100, L503.6005, M200.1000 ####[facility] [address] [place], [address] Platelet countOrdered By: Kenny Yoder on 03-04-2025 Platelets (Bld) [#/Vol] 334 10*3/uL 150-450 [facility] Potassium measurement (mass/ volume)Ordered By: Jeevan Yoder on 03-04-2025 Potassium (Unsp spec) [Mass/Vol] 5.0 mmol/L 3.3-5.1 [facility] Protein Test strip Ql (U)Ord ered By: Jeevan Yoder on 03-04-2025 Protein Ql (U) 100 mg/dl High Negative [facility] Prothrombin Time w/INRon INR Coag (PPP) [Relative time] 1.0 {INR} Normal [facility] Comment on above: Performed By: #### L 500.4050, L300.3900, L300.4310, L100.0100, L503.6005, M200.1000 ####[facility] [address] [place], [address] PT Coag (PPP) [Time] 13.8 s Normal 11.7-14.9 [facility] Comment on above: Performed By: #### L 500.4050, L300.3900, L300.4310, L100.0100, L503.6005, M200.1000 ####[facility] [address] [place], [address] Prothrombin timeOrdered By: Jeevan Yoder on 03-04-2025 PT Coag (PPP) [Time] 13.8 s 11.7-14.9 [facility] RBC Auto (Bld) [#/Vol]Ordere d By: Jeevan Yoder on 03-04-2025 RBC (Bld) [#/Vol] 3.71 10*6/uL Low 4.2-5.4 [facility] Serum creatinine measurement (mass/volume)Ordered By: Jeevan Yoder on 03-04-2025 Creatinine [Mass/Vol] 1.29 mg/dL High 0.70-1.20 [facility] Serum globulin measurementOr dered By: Jeevan Yoder on 03-04-2025 Globulin (S) [Mass/Vol] 3.6 g/dL 2.2-4.[address] [facility] Serum glucose measurement (m ass/volume)Ordered By: Jeevan Yoder on 03-04-2025 Glucose [Mass/Vol] 116 mg/dL High 70-99 [facility] Serum or plasma alanine kelley otransferase (ALT) measurementOrdered By: Jeevan Yoder on 03-04-2025 ALT [Catalytic activity/Vol] 25 U/L <35 [facility] Serum or plasma albumin melanie urement (mass/volume)Ordered By: Jeevan Yoder on 03-04-2025 Albumin [Mass/Vol] 3.3 g/dL Low 3.4-4.8 [facility] Serum or plasma albumin/glob ulin mass ratioOrdered By: Jeevan Yoder on 03-04-2025 Albumin/Globulin [Mass ratio] 0.9 {ratio} 0.9-2.4 [facility] Serum or plasma alkaline lissa sphatase measurementOrdered By: Jeevan Yoder on 03-04-2025 ALP [Catalytic activity/Vol] 79 U/L 35-104 [facility] Serum or plasma calcium melanie urement (mass/volume)Ordered By: Jeevan Yoder on 03-04-2025 Calcium [Mass/Vol] 10.7 mg/dL 7.6-11.0 [facility] Serum or plasma urea nitroge n measurement (mass/volume)Ordered By: Jeevan Yoder on 03-04-2025 Urea nitrogen [Mass/Vol] 23 mg/dL High 4-19 [facility] Sodium levelOrdered By: Marcelino Yoder on 03-04-2025 Sodium [Moles/Vol] 136 mmol/L 133-145 [facility] Squamous epithelial cells de tection in urine sediment by light microscopyOrdered By: Jeevan Yoder on 03-04-2025 Epithelial cells.squamous LM Ql (Urine sed) 0-5 SEEN /hpf 5-10 [facility] Total proteinOrdered By: Maeve Yoder on 03-04-2025 Protein [Mass/Vol] 6.9 g/dL 5.9-8.4 [facility] Urinalysis, Completeon 03-04 BACTERIA 4+ /hpf Normal None Seen [facility] Comment on above: Order Comment: MARSHALL CTOR TO SPECIFY Performed By: #### L 400.0001, M100.2200 ####[facility] [address] [place], [address] EPI,SQUAMOUS 0-5 SEEN Normal 5-10 [facility] Comment on above: Order Comment: MARSHALL CTOR TO SPECIFY Performed By: #### L 400.0001, M1.0 ####[facility] [address] [place], [address] RBC 0-5 SEEN Normal 0-5 [facility] Comment on above: Order Comment: MARSHALL CTOR TO SPECIFY Performed By: #### L 400.0001, M100.2200 ####[facility] [address] [place], [address] YEAST 2+ /hpf Normal None Seen [facility] Comment on above: Order Comment: MARSHALL CTOR TO SPECIFY Performed By: #### L 400.0001, M100.0 ####[facility] [address] [place], [address] AMORPHOUS 3+ Normal [facility] Comment on above: Order Comment: MARSHALL CTOR TO SPECIFY Performed By: #### L 400.0001, M100.2200 ####[facility] [address] [place], [address] WBC 25-50 SEEN Normal 0-5 [facility] Comment on above: Order Comment: COLLE CTOR TO SPECIFY Performed By: #### L 400.0001, M100.0 ####[facility] [address] [place], [address] Mucus Ql (Urine sed) 0 SEEN Normal [facility] Comment on above: Order Comment: MARSHALL CTOR TO SPECIFY Performed By: #### L 400.0001, M100.2200 ####[facility] [address] [place], [address] Urine clarityOrdered By: Maeve Yoder on 03-04-2025 Clarity (U) Cloudy Clear [facility] Urine color determinationOrd ered By: Jeevan Yoder on 03-04-2025 Color (U) Straw Yellow [facility] Urine cultureOrdered By: Maeve Yoder on 03-04-2025 Bacteria identified Cx Nom (U) Enterococcus faecalis Abnormal [facility] Urine glucose detectionOrder ed By: Jeevan Yoder on 03-04-2025 Glucose Ql (U) 100 mg/dl High Normal [facility] Urine leukocyte esterase det ection by dipstickOrdered By: Jeevan Yoder on 03-04-2025 Leukocyte esterase Test strip Ql (U) 500 /ul High Negative [facility] Urine pHOrdered By: Jeevan rai on 03-04-2025 pH (U) 7.0 [pH] 5.0 - 8.0 [facility] Urine sediment bacteria coun t by microscopy (number/high power field)Ordered By: Jeevan Yoder on 03-04-2025 Bacteria LM.HPF (Urine sed) [#/Area] 4 /[HPF] None Seen [facility] Urine sediment yeast count b y microscopy (number/high powered field)Ordered By: Jeevan Yoder on 03-04-2025 Yeast LM.HPF (Urine sed) [#/Area] 2 /[HPF] None Seen [facility] Urine specific gravity measu rementOrdered By: Jeevan Yoder on 03-04-2025 Specific gravity (U) [Rel density] 1.010 1.002-1.030 [facility] Urine urobilinogen measureme ntOrdered By: Jeevan Yoder on 03-04-2025 Urobilinogen Ql (U) Normal mg/dl Normal [facility] White blood cell (WBC) count Ordered By: Jeevan Yoder on 03-04-2025 WBC (Bld) [#/Vol] 7.2 10*3/uL 4.4-11.0 [facility] White blood cell countOrdere d By: Jeevan Yoder on 03-04-2025 White blood cell count 25-50 SEEN /hpf 0-5 [facility] [facility] Basic Metabolic Profile (BMP )on 02-23-2025 BUN Normal 4-19 [facility] Comment on above: Result Comment: Canc elled via OM: Order cancelled - Patient discharged Performed By: #### L 500.2500, L100.0100 ####[facility] [address] [place], [address] BUN/CRE Normal 10-20 [facility] Comment on above: Result Comment: Canc elled via OM: Order cancelled - Patient discharged Performed By: #### L 500.2500, L100.0100 ####[facility] [address] [place], [address] Calcium Normal 7.6-11.0 [facility] Comment on above: Result Comment: Canc elled via OM: Order cancelled - Patient discharged Performed By: #### L 500.2500, L100.0100 ####[facility] [address] [place], [address] CL Normal 98-108 [facility] Comment on above: Result Comment: Canc elled via OM: Order cancelled - Patient discharged Performed By: #### L 500.2500, L100.0100 ####[facility] [address] [place], [address] CO2 Normal 21.0-32.0 [facility] Comment on above: Result Comment: Canc elled via OM: Order cancelled - Patient discharged Performed By: #### L 500.2500, L100.0100 ####[facility] [address] [place], [address] CREAT,SERUM Normal 0.70-1.20 [facility] Comment on above: Result Comment: Canc elled via OM: Order cancelled - Patient discharged Performed By: #### L 500.2500, L100.0100 ####[facility] [address] [place], [address] eGFR Normal >60 [facility] Comment on above: Result Comment: Canc elled via OM: Order cancelled - Patient discharged Performed By: #### L 500.2500, L100.0100 ####[facility] [address] [place], [address] GAP Normal 5-15 [facility] Comment on above: Result Comment: Canc elled via OM: Order cancelled - Patient discharged Performed By: #### L 500.2500, L100.0100 ####[facility] [address] [place], [address] GLU Normal 70-99 [facility] Comment on above: Result Comment: Canc elled via OM: Order cancelled - Patient discharged Performed By: #### L 500.2500, L100.0100 ####[facility] [address] [place], [address] Potassium Normal 3.3-5.1 [facility] Comment on above: Result Comment: Canc elled via OM: Order cancelled - Patient discharged Performed By: #### L 500.2500, L100.0100 ####[facility] [address] [place], [address] Basic Metabolic Profile (BMP) Normal 133-145 [facility] Comment on above: Result Comment: Canc elled via OM: Order cancelled - Patient discharged Performed By: #### L 500.2500, L100.0100 ####[facility] [address] [place], [address] CBC W/Diff, Automatedon 06-2 Absolute Neut Normal 2.0-7.7 [facility] Comment on above: Result Comment: Canc elled via OM: Order cancelled - Patient discharged Performed By: #### L 500.2500, L100.0100 ####[facility] [address] [place], [address] HCT Normal 37-47 [facility] Comment on above: Result Comment: Canc elled via OM: Order cancelled - Patient discharged Performed By: #### L 500.2500, L100.0100 ####[facility] [address] [place], [address] HGB Normal 12.0-15.0 [facility] Comment on above: Result Comment: Canc elled via OM: Order cancelled - Patient discharged Performed By: #### L 500.2500, L100.0100 ####[facility] [address] [place], [address] MCH Normal 27.0-32.0 [facility] Comment on above: Result Comment: Canc elled via OM: Order cancelled - Patient discharged Performed By: #### L 500.2500, L100.0100 ####[facility] [address] [place], [address] MCHC Normal 32-36 [facility] Comment on above: Result Comment: Canc elled via OM: Order cancelled - Patient discharged Performed By: #### L 500.2500, L100.0100 ####[facility] [address] [place], [address] MCV Normal 81-99 [facility] Comment on above: Result Comment: Canc elled via OM: Order cancelled - Patient discharged Performed By: #### L 500.2500, L100.0100 ####[facility] [address] [place], [address] NEUT% Normal 47-70 [facility] Comment on above: Result Comment: Canc elled via OM: Order cancelled - Patient discharged Performed By: #### L 500.2500, L100.0100 ####[facility] [address] [place], [address] PLT Normal 150-450 [facility] Comment on above: Result Comment: Canc elled via OM: Order cancelled - Patient discharged Performed By: #### L 500.2500, L100.0100 ####[facility] [address] [place], [address] RBC Normal 4.2-5.4 [facility] Comment on above: Result Comment: Canc elled via OM: Order cancelled - Patient discharged Performed By: #### L 500.2500, L100.0100 ####[facility] [address] [place], [address] RDW CV Normal 11.6-14.6 [facility] Comment on above: Result Comment: Canc elled via OM: Order cancelled - Patient discharged Performed By: #### L 500.2500, L100.0100 ####[facility] [address] [place], [address] RDW SD Normal 35.1-43.9 [facility] Comment on above: Result Comment: Canc elled via OM: Order cancelled - Patient discharged Performed By: #### L 500.2500, L100.0100 ####[facility] [address] [place], [address] WBC Normal 4.4-11.0 [facility] Comment on above: Result Comment: Canc elled via OM: Order cancelled - Patient discharged Performed By: #### L 500.2500, L100.0100 ####[facility] [address] [place], [address] Basic Metabolic Profile (BMP )on 02-22-2025 BUN Normal 4-19 [facility] Comment on above: Result Comment: Canc elled via OM: Order cancelled - Patient discharged Performed By: #### L 500.2500, L100.0100 ####[facility] [address] [place], [address] BUN/CRE Normal 10-20 [facility] Comment on above: Result Comment: Canc elled via OM: Order cancelled - Patient discharged Performed By: #### L 500.2500, L100.0100 ####[facility] [address] [place], [address] Calcium Normal 7.6-11.0 [facility] Comment on above: Result Comment: Canc elled via OM: Order cancelled - Patient discharged Performed By: #### L 500.2500, L100.0100 ####[facility] [address] [place], [address] CL Normal 98-108 [facility] Comment on above: Result Comment: Canc elled via OM: Order cancelled - Patient discharged Performed By: #### L 500.2500, L100.0100 ####[facility] [address] [place], [address] CO2 Normal 21.0-32.0 [facility] Comment on above: Result Comment: Canc elled via OM: Order cancelled - Patient discharged Performed By: #### L 500.2500, L100.0100 ####[facility] [address] [place], [address] CREAT,SERUM Normal 0.70-1.20 [facility] Comment on above: Result Comment: Canc elled via OM: Order cancelled - Patient discharged Performed By: #### L 500.2500, L100.0100 ####[facility] [address] [place], [address] eGFR Normal >60 [facility] Comment on above: Result Comment: Canc elled via OM: Order cancelled - Patient discharged Performed By: #### L 500.2500, L100.0100 ####[facility] [address] [place], [address] GAP Normal 5-15 [facility] Comment on above: Result Comment: Canc elled via OM: Order cancelled - Patient discharged Performed By: #### L 500.2500, L100.0100 ####[facility] [address] [place], [address] GLU Normal 70-99 [facility] Comment on above: Result Comment: Canc elled via OM: Order cancelled - Patient discharged Performed By: #### L 500.2500, L100.0100 ####[facility] [address] [place], [address] Potassium Normal 3.3-5.1 [facility] Comment on above: Result Comment: Canc elled via OM: Order cancelled - Patient discharged Performed By: #### L 500.2500, L100.0100 ####[facility] [address] [place], [address] Basic Metabolic Profile (BMP) Normal 133-145 [facility] Comment on above: Result Comment: Canc elled via OM: Order cancelled - Patient discharged Performed By: #### L 500.2500, L100.0100 ####[facility] [address] [place], [address] CBC W/Diff, Automatedon 06-2 Absolute Neut Normal 2.0-7.7 [facility] Comment on above: Result Comment: Canc elled via OM: Order cancelled - Patient discharged Performed By: #### L 500.2500, L100.0100 ####[facility] [address] [place], [address] HCT Normal 37-47 [facility] Comment on above: Result Comment: Canc elled via OM: Order cancelled - Patient discharged Performed By: #### L 500.2500, L100.0100 ####[facility] [address] [place], [address] HGB Normal 12.0-15.0 [facility] Comment on above: Result Comment: Canc elled via OM: Order cancelled - Patient discharged Performed By: #### L 500.2500, L100.0100 ####[facility] [address] [place], [address] MCH Normal 27.0-32.0 [facility] Comment on above: Result Comment: Canc elled via OM: Order cancelled - Patient discharged Performed By: #### L 500.2500, L100.0100 ####[facility] [address] [place], [address] MCHC Normal 32-36 [facility] Comment on above: Result Comment: Canc elled via OM: Order cancelled - Patient discharged Performed By: #### L 500.2500, L100.0100 ####[facility] [address] [place], [address] MCV Normal 81-99 [facility] Comment on above: Result Comment: Canc elled via OM: Order cancelled - Patient discharged Performed By: #### L 500.2500, L100.0100 ####[facility] [address] [place], [address] NEUT% Normal 47-70 [facility] Comment on above: Result Comment: Canc elled via OM: Order cancelled - Patient discharged Performed By: #### L 500.2500, L100.0100 ####[facility] [address] [place], [address] PLT Normal 150-450 [facility] Comment on above: Result Comment: Canc elled via OM: Order cancelled - Patient discharged Performed By: #### L 500.2500, L100.0100 ####[facility] [address] [place], [address] RBC Normal 4.2-5.4 [facility] Comment on above: Result Comment: Canc elled via OM: Order cancelled - Patient discharged Performed By: #### L 500.2500, L100.0100 ####[facility] [address] [place], [address] RDW CV Normal 11.6-14.6 [facility] Comment on above: Result Comment: Canc elled via OM: Order cancelled - Patient discharged Performed By: #### L 500.2500, L100.0100 ####[facility] [address] [place], [address] RDW SD Normal 35.1-43.9 [facility] Comment on above: Result Comment: Canc elled via OM: Order cancelled - Patient discharged Performed By: #### L 500.2500, L100.0100 ####[facility] [address] [place], [address] WBC Normal 4.4-11.0 [facility] Comment on above: Result Comment: Canc elled via OM: Order cancelled - Patient discharged Performed By: #### L 500.2500, L100.0100 ####[facility] [address] [place], [address] Basic Metabolic Profile (BMP )on 02-21-2025 BUN Normal 4-19 [facility] Comment on above: Result Comment: Canc elled via OM: Order cancelled - Patient discharged Performed By: #### L 500.2500, L100.0100 ####[facility] [address] [place], [address] BUN/CRE Normal 10-20 [facility] Comment on above: Result Comment: Canc elled via OM: Order cancelled - Patient discharged Performed By: #### L 500.2500, L100.0100 ####[facility] [address] [place], [address] Calcium Normal 7.6-11.0 [facility] Comment on above: Result Comment: Canc elled via OM: Order cancelled - Patient discharged Performed By: #### L 500.2500, L100.0100 ####[facility] [address] [place], [address] CL Normal 98-108 [facility] Comment on above: Result Comment: Canc elled via OM: Order cancelled - Patient discharged Performed By: #### L 500.2500, L100.0100 ####[facility] [address] [place], [address] CO2 Normal 21.0-32.0 [facility] Comment on above: Result Comment: Canc elled via OM: Order cancelled - Patient discharged Performed By: #### L 500.2500, L100.0100 ####[facility] [address] [place], [address] CREAT,SERUM Normal 0.70-1.20 [facility] Comment on above: Result Comment: Canc elled via OM: Order cancelled - Patient discharged Performed By: #### L 500.2500, L100.0100 ####[facility] [address] [place], [address] eGFR Normal >60 [facility] Comment on above: Result Comment: Canc elled via OM: Order cancelled - Patient discharged Performed By: #### L 500.2500, L100.0100 ####[facility] [address] [place], [address] GAP Normal 5-15 [facility] Comment on above: Result Comment: Canc elled via OM: Order cancelled - Patient discharged Performed By: #### L 500.2500, L100.0100 ####[facility] [address] [place], [address] GLU Normal 70-99 [facility] Comment on above: Result Comment: Canc elled via OM: Order cancelled - Patient discharged Performed By: #### L 500.2500, L100.0100 ####[facility] [address] [place], [address] Potassium Normal 3.3-5.1 [facility] Comment on above: Result Comment: Canc elled via OM: Order cancelled - Patient discharged Performed By: #### L 500.2500, L100.0100 ####[facility] [address] [place], [address] Basic Metabolic Profile (BMP) Normal 133-145 [facility] Comment on above: Result Comment: Canc elled via OM: Order cancelled - Patient discharged Performed By: #### L 500.2500, L100.0100 ####[facility] [address] [place], [address] CBC W/Diff, Automatedon 06-2 Absolute Neut Normal 2.0-7.7 [facility] Comment on above: Result Comment: Canc elled via OM: Order cancelled - Patient discharged Performed By: #### L 500.2500, L100.0100 ####[facility] [address] [place], [address] HCT Normal 37-47 [facility] Comment on above: Result Comment: Canc elled via OM: Order cancelled - Patient discharged Performed By: #### L 500.2500, L100.0100 ####[facility] [address] [place], [address] HGB Normal 12.0-15.0 [facility] Comment on above: Result Comment: Canc elled via OM: Order cancelled - Patient discharged Performed By: #### L 500.2500, L100.0100 ####[facility] [address] [place], [address] MCH Normal 27.0-32.0 [facility] Comment on above: Result Comment: Canc elled via OM: Order cancelled - Patient discharged Performed By: #### L 500.2500, L100.0100 ####[facility] [address] [place], [address] MCHC Normal 32-36 [facility] Comment on above: Result Comment: Canc elled via OM: Order cancelled - Patient discharged Performed By: #### L 500.2500, L100.0100 ####[facility] [address] [place], [address] MCV Normal 81-99 [facility] Comment on above: Result Comment: Canc elled via OM: Order cancelled - Patient discharged Performed By: #### L 500.2500, L100.0100 ####[facility] [address] [place], [address] NEUT% Normal 47-70 [facility] Comment on above: Result Comment: Canc elled via OM: Order cancelled - Patient discharged Performed By: #### L 500.2500, L100.0100 ####[facility] [address] [place], [address] PLT Normal 150-450 [facility] Comment on above: Result Comment: Canc elled via OM: Order cancelled - Patient discharged Performed By: #### L 500.2500, L100.0100 ####[facility] [address] [place], [address] RBC Normal 4.2-5.4 [facility] Comment on above: Result Comment: Canc elled via OM: Order cancelled - Patient discharged Performed By: #### L 500.2500, L100.0100 ####[facility] [address] [place], [address] RDW CV Normal 11.6-14.6 [facility] Comment on above: Result Comment: Canc elled via OM: Order cancelled - Patient discharged Performed By: #### L 500.2500, L100.0100 ####[facility] [address] [place], [address] RDW SD Normal 35.1-43.9 [facility] Comment on above: Result Comment: Canc elled via OM: Order cancelled - Patient discharged Performed By: #### L 500.2500, L100.0100 ####[facility] [address] [place], [address] WBC Normal 4.4-11.0 [facility] Comment on above: Result Comment: Canc elled via OM: Order cancelled - Patient discharged Performed By: #### L 500.2500, L100.0100 ####[facility] [address] [place], [address] Basic Metabolic Profile (BMP )on 02-20-2025 BUN Normal 4-19 [facility] Comment on above: Result Comment: Canc elled via OM: Order cancelled - Patient discharged Performed By: #### L 100.0100, L500.2500 ####[facility] [address] [place], [address] BUN/CRE Normal 10-20 [facility] Comment on above: Result Comment: Canc elled via OM: Order cancelled - Patient discharged Performed By: #### L 100.0100, L500.2500 ####[facility] [address] [place], [address] Calcium Normal 7.6-11.0 [facility] Comment on above: Result Comment: Canc elled via OM: Order cancelled - Patient discharged Performed By: #### L 100.0100, L500.2500 ####[facility] [address] [place], [address] CL Normal 98-108 [facility] Comment on above: Result Comment: Canc elled via OM: Order cancelled - Patient discharged Performed By: #### L 100.0100, L500.2500 ####[facility] [address] [place], [address] CO2 Normal 21.0-32.0 [facility] Comment on above: Result Comment: Canc elled via OM: Order cancelled - Patient discharged Performed By: #### L 100.0100, L500.2500 ####[facility] [address] [place], [address] CREAT,SERUM Normal 0.70-1.20 [facility] Comment on above: Result Comment: Canc elled via OM: Order cancelled - Patient discharged Performed By: #### L 100.0100, L500.2500 ####[facility] [address] [place], [address] eGFR Normal >60 [facility] Comment on above: Result Comment: Canc elled via OM: Order cancelled - Patient discharged Performed By: #### L 100.0100, L500.2500 ####[facility] [address] [place], [address] GAP Normal 5-15 [facility] Comment on above: Result Comment: Canc elled via OM: Order cancelled - Patient discharged Performed By: #### L 100.0100, L500.2500 ####[facility] [address] [place], [address] GLU Normal 70-99 [facility] Comment on above: Result Comment: Canc elled via OM: Order cancelled - Patient discharged Performed By: #### L 100.0100, L500.2500 ####[facility] [address] [place], [address] Potassium Normal 3.3-5.1 [facility] Comment on above: Result Comment: Canc elled via OM: Order cancelled - Patient discharged Performed By: #### L 100.0100, L500.2500 ####[facility] [address] [place], [address] Basic Metabolic Profile (BMP) Normal 133-145 [facility] Comment on above: Result Comment: Canc elled via OM: Order cancelled - Patient discharged Performed By: #### L 100.0100, L500.2500 ####[facility] [address] [place], [address] Bedside Glucoseon 02-20-2025 FINGERSTICK GLU 385 mg/dL High 74-106 [facility] Comment on above: Result Comment: KATARINA GEMENT OF PATIENT CARE PER NURSING PROTOCOL Performed By: #### L 501.080 ####[facility] [address] [place], [address] FINGERSTICK GLU 419 mg/dL High 74-106 [facility] Comment on above: Result Comment: KATARINA GEMENT OF PATIENT CARE PER NURSING PROTOCOL Performed By: #### L 501.080 ####[facility] [address] [place], [address] CBC W/Diff, Automatedon 01-30 Absolute Neut Normal 2.0-7.7 [facility] Comment on above: Result Comment: Canc elled via OM: Order cancelled - Patient discharged Performed By: #### L 100.0100, L500.2500 ####[facility] [address] [place], [address] HCT Normal 37-47 [facility] Comment on above: Result Comment: Canc elled via OM: Order cancelled - Patient discharged Performed By: #### L 100.0100, L500.2500 ####[facility] [address] [place], [address] HGB Normal 12.0-15.0 [facility] Comment on above: Result Comment: Canc elled via OM: Order cancelled - Patient discharged Performed By: #### L 100.0100, L500.2500 ####[facility] [address] [place], [address] MCH Normal 27.0-32.0 [facility] Comment on above: Result Comment: Canc elled via OM: Order cancelled - Patient discharged Performed By: #### L 100.0100, L500.2500 ####[facility] [address] [place], [address] MCHC Normal 32-36 [facility] Comment on above: Result Comment: Canc elled via OM: Order cancelled - Patient discharged Performed By: #### L 100.0100, L500.2500 ####[facility] [address] [place], [address] MCV Normal 81-99 [facility] Comment on above: Result Comment: Canc elled via OM: Order cancelled - Patient discharged Performed By: #### L 100.0100, L500.2500 ####[facility] [address] [place], [address] NEUT% Normal 47-70 [facility] Comment on above: Result Comment: Canc elled via OM: Order cancelled - Patient discharged Performed By: #### L 100.0100, L500.2500 ####[facility] [address] [place], [address] PLT Normal 150-450 [facility] Comment on above: Result Comment: Canc elled via OM: Order cancelled - Patient discharged Performed By: #### L 100.0100, L500.2500 ####[facility] [address] [place], [address] RBC Normal 4.2-5.4 [facility] Comment on above: Result Comment: Canc elled via OM: Order cancelled - Patient discharged Performed By: #### L 100.0100, L500.2500 ####[facility] [address] [place], [address] RDW CV Normal 11.6-14.6 [facility] Comment on above: Result Comment: Canc elled via OM: Order cancelled - Patient discharged Performed By: #### L 100.0100, L500.2500 ####[facility] [address] [place], [address] RDW SD Normal 35.1-43.9 [facility] Comment on above: Result Comment: Canc elled via OM: Order cancelled - Patient discharged Performed By: #### L 100.0100, L500.2500 ####[facility] [address] [place], [address] WBC Normal 4.4-11.0 [facility] Comment on above: Result Comment: Canc elled via OM: Order cancelled - Patient discharged Performed By: #### L 100.0100, L500.2500 ####[facility] [address] [place], [address] Basic Metabolic Profile (BMP )on 02-19-2025 BUN Normal 4-19 [facility] Comment on above: Result Comment: Canc elled via OM: Order cancelled - Patient discharged Performed By: #### L 500.2500, L100.0100 ####[facility] [address] [place], [address] BUN/CRE Normal 10-20 [facility] Comment on above: Result Comment: Canc elled via OM: Order cancelled - Patient discharged Performed By: #### L 500.2500, L100.0100 ####[facility] [address] [place], [address] Calcium Normal 7.6-11.0 [facility] Comment on above: Result Comment: Canc elled via OM: Order cancelled - Patient discharged Performed By: #### L 500.2500, L100.0100 ####[facility] [address] [place], [address] CL Normal 98-108 [facility] Comment on above: Result Comment: Canc elled via OM: Order cancelled - Patient discharged Performed By: #### L 500.2500, L100.0100 ####[facility] [address] [place], [address] CO2 Normal 21.0-32.0 [facility] Comment on above: Result Comment: Canc elled via OM: Order cancelled - Patient discharged Performed By: #### L 500.2500, L100.0100 ####[facility] [address] [place], [address] CREAT,SERUM Normal 0.70-1.20 [facility] Comment on above: Result Comment: Canc elled via OM: Order cancelled - Patient discharged Performed By: #### L 500.2500, L100.0100 ####[facility] [address] [place], [address] eGFR Normal >60 [facility] Comment on above: Result Comment: Canc elled via OM: Order cancelled - Patient discharged Performed By: #### L 500.2500, L100.0100 ####[facility] [address] [place], [address] GAP Normal 5-15 [facility] Comment on above: Result Comment: Canc elled via OM: Order cancelled - Patient discharged Performed By: #### L 500.2500, L100.0100 ####[facility] [address] [place], [address] GLU Normal 70-99 [facility] Comment on above: Result Comment: Canc elled via OM: Order cancelled - Patient discharged Performed By: #### L 500.2500, L100.0100 ####[facility] [address] [place], [address] Potassium Normal 3.3-5.1 [facility] Comment on above: Result Comment: Canc elled via OM: Order cancelled - Patient discharged Performed By: #### L 500.2500, L100.0100 ####[facility] [address] [place], [address] Basic Metabolic Profile (BMP) Normal 133-145 [facility] Comment on above: Result Comment: Canc elled via OM: Order cancelled - Patient discharged Performed By: #### L 500.2500, L100.0100 ####[facility] [address] [place], [address] CBC W/Diff, Automatedon 06-2 Absolute Neut Normal 2.0-7.7 [facility] Comment on above: Result Comment: Canc elled via OM: Order cancelled - Patient discharged Performed By: #### L 500.2500, L100.0100 ####[facility] [address] [place], [address] HCT Normal 37-47 [facility] Comment on above: Result Comment: Canc elled via OM: Order cancelled - Patient discharged Performed By: #### L 500.2500, L100.0100 ####[facility] [address] [place], [address] HGB Normal 12.0-15.0 [facility] Comment on above: Result Comment: Canc elled via OM: Order cancelled - Patient discharged Performed By: #### L 500.2500, L100.0100 ####[facility] [address] [place], [address] MCH Normal 27.0-32.0 [facility] Comment on above: Result Comment: Canc elled via OM: Order cancelled - Patient discharged Performed By: #### L 500.2500, L100.0100 ####[facility] [address] [place], [address] MCHC Normal 32-36 [facility] Comment on above: Result Comment: Canc elled via OM: Order cancelled - Patient discharged Performed By: #### L 500.2500, L100.0100 ####[facility] [address] [place], [address] MCV Normal 81-99 [facility] Comment on above: Result Comment: Canc elled via OM: Order cancelled - Patient discharged Performed By: #### L 500.2500, L100.0100 ####[facility] [address] [place], [address] NEUT% Normal 47-70 [facility] Comment on above: Result Comment: Canc elled via OM: Order cancelled - Patient discharged Performed By: #### L 500.2500, L100.0100 ####[facility] [address] [place], [address] PLT Normal 150-450 [facility] Comment on above: Result Comment: Canc elled via OM: Order cancelled - Patient discharged Performed By: #### L 500.2500, L100.0100 ####[facility] [address] [place], [address] RBC Normal 4.2-5.4 [facility] Comment on above: Result Comment: Canc elled via OM: Order cancelled - Patient discharged Performed By: #### L 500.2500, L100.0100 ####[facility] [address] [place], [address] RDW CV Normal 11.6-14.6 [facility] Comment on above: Result Comment: Canc elled via OM: Order cancelled - Patient discharged Performed By: #### L 500.2500, L100.0100 ####[facility] [address] [place], [address] RDW SD Normal 35.1-43.9 [facility] Comment on above: Result Comment: Canc elled via OM: Order cancelled - Patient discharged Performed By: #### L 500.2500, L100.0100 ####[facility] [address] [place], [address] WBC Normal 4.4-11.0 [facility] Comment on above: Result Comment: Canc elled via OM: Order cancelled - Patient discharged Performed By: #### L 500.2500, L100.0100 ####[facility] [address] [place], [address] 12 Lead EKGon 02-18-2025 12 Lead EKG Normal [facility] Absolute lymphocyte countOrd ered By: Billy Kothari on 02-18-2025 Lymphocytes Auto (Unsp spec) [#/Vol] 1.53 10*3/uL 0.83-4.51 [facility] Anion gap in Serum or Plasma Ordered By: Billy Kothari on 02-18-2025 Anion gap [Moles/Vol] 11 mmol/L 5-15 [facility] Automated lymphocyte count a s percentage of total leukocytesOrdered By: Billy Kothari on 02-18-2025 Lymphocytes/100 WBC Auto (Unsp spec) 12.5 % Low 19-41 [facility] BUN/creatinine ratioOrdered By: Billy Kothari on 02-18-2025 Urea nitrogen/Creatinine [Mass ratio] 19.9 mg/mg 10-20 [facility] Basic Metabolic Profile (BMP )on 02-18-2025 BUN/CRE 19.9 RATIO Normal -20 [facility] Comment on above: Performed By: #### L 500.2500, L100.0100 ####[facility] [address] [place], [address] Calcium [Mass/Vol] 10.7 mg/dL Normal 7.6-11.0 [facility] Comment on above: Performed By: #### L 500.2500, L100.0100 ####[facility] [address] [place], [address] Chloride [Moles/Vol] 97 mmol/L Low 98-108 [facility] Comment on above: Performed By: #### L 500.2500, L100.0100 ####[facility] [address] [place], [address] CO2 [Moles/Vol] 28.1 mmol/L Normal 21.0-32.0 [facility] Comment on above: Performed By: #### L 500.2500, L100.0100 ####[facility] [address] [place], [address] Creatinine [Mass/Vol] 1.26 mg/dL High 0.70-1.20 [facility] Comment on above: Performed By: #### L 500.2500, L100.0100 ####[facility] [address] [place], [address] ECRCL 34.58 ml/min Low 50-250 [facility] Comment on above: Performed By: #### L 500.2500, L100.0100 ####[facility] [address] [place], [address] GAP 11 Normal 5-15 [facility] Comment on above: Performed By: #### L 500.2500, L100.0100 ####[facility] [address] [place], [address] GFR/1.73 sq M.predicted among non-blacks MDRD (S/P/Bld) [Vol rate/Area] 43 mL/min/{1.73_m2} Low >60 [facility] Comment on above: Result Comment: mL/m in/1.73m2 CKD-EPI Creatinine Equation (2020) Performed By: #### L 500.2500, L100.0100 ####[facility] [address] [place], [address] Glucose [Mass/Vol] 174 mg/dL High 70-99 [facility] Comment on above: Performed By: #### L 500.2500, L100.0100 ####[facility] [address] [place], [address] Potassium [Moles/Vol] 6.0 mmol/L Invalid Interpretation Code 3.3-5.1 [facility] Comment on above: Result Comment: Hemo lysis present, Results??could be affected.??Critical Result(s) Called EFINK at: 2254 by:VIET??Results read back by same.Hemolysis present, Results??could be affected.?? Performed By: #### L 500.2500, L100.0100 ####[facility] [address] [place], [address] Sodium [Moles/Vol] 136 mmol/L Normal 133-145 [facility] Comment on above: Performed By: #### L 500.2500, L100.0100 ####[facility] [address] [place], [address] Urea nitrogen [Mass/Vol] 25 mg/dL High -19 [facility] Comment on above: Performed By: #### L 500.2500, L100.0100 ####[facility] [address] [place], [address] BUN Normal -19 [facility] Comment on above: Result Comment: Canc elled via OM: Order cancelled - Patient discharged Performed By: #### L 100.0100, L500.2500 ####[facility] [address] [place], [address] BUN/CRE Normal 10-20 [facility] Comment on above: Result Comment: Canc elled via OM: Order cancelled - Patient discharged Performed By: #### L 100.0100, L500.2500 ####[facility] [address] [place], [address] Calcium Normal 7.6-11.0 [facility] Comment on above: Result Comment: Canc elled via OM: Order cancelled - Patient discharged Performed By: #### L 100.0100, L500.2500 ####[facility] [address] [place], [address] CL Normal 98-108 [facility] Comment on above: Result Comment: Canc elled via OM: Order cancelled - Patient discharged Performed By: #### L 100.0100, L500.2500 ####[facility] [address] [place], [address] CO2 Normal 21.0-32.0 [facility] Comment on above: Result Comment: Canc elled via OM: Order cancelled - Patient discharged Performed By: #### L 100.0100, L500.2500 ####[facility] [address] [place], [address] CREAT,SERUM Normal 0.70-1.20 [facility] Comment on above: Result Comment: Canc elled via OM: Order cancelled - Patient discharged Performed By: #### L 100.0100, L500.2500 ####[facility] [address] [place], [address] eGFR Normal >60 [facility] Comment on above: Result Comment: Canc elled via OM: Order cancelled - Patient discharged Performed By: #### L 100.0100, L500.2500 ####[facility] [address] [place], [address] GAP Normal 5-15 [facility] Comment on above: Result Comment: Canc elled via OM: Order cancelled - Patient discharged Performed By: #### L 100.0100, L500.2500 ####[facility] [address] [place], [address] GLU Normal 70-99 [facility] Comment on above: Result Comment: Canc elled via OM: Order cancelled - Patient discharged Performed By: #### L 100.0100, L500.2500 ####[facility] [address] [place], [address] Potassium Normal 3.3-5.1 [facility] Comment on above: Result Comment: Canc elled via OM: Order cancelled - Patient discharged Performed By: #### L 100.0100, L500.2500 ####[facility] [address] [place], [address] Basic Metabolic Profile (BMP) Normal 133-145 [facility] Comment on above: Result Comment: Canc elled via OM: Order cancelled - Patient discharged Performed By: #### L 100.0100, L500.2500 ####[facility] [address] [place], [address] Basophil percentageOrdered B y: Billy Kothari on 02-18-2025 Basophils/100 WBC (Bld) 0.2 % 0-[address] [facility] CBC W/Diff, Automatedon 01-30-2024 Absolute Lymph 1.53 X10 3/uL Normal 0.83-4.51 [facility] Comment on above: Performed By: #### L 500.2500, L100.0100 ####[facility] [address] [place], [address] Absolute Neut 9.6 X10 3/uL High 2.0-7.7 [facility] Comment on above: Performed By: #### L 500.2500, L100.0100 ####[facility] [address] [place], [address] Basophils/100 WBC (Bld) 0.2 % Normal 0-[address] [facility] Comment on above: Performed By: #### L 500.2500, L100.0100 ####[facility] [address] [place], [address] Eosinophils/100 WBC (Bld) 1.0 % Normal 0-5 [facility] Comment on above: Performed By: #### L 500.2500, L100.0100 ####[facility] [address] [place], [address] Erythrocyte distribution width (RBC) [Ratio] 15.9 % High 11.6-14.6 [facility] Comment on above: Performed By: #### L 500.2500, L100.0100 ####[facility] [address] [place], [address] Hematocrit (Bld) [Volume fraction] 35.8 % Low 37-47 [facility] Comment on above: Performed By: #### L 500.2500, L100.0100 ####[facility] [address] [place], [address] Hemoglobin (Bld) [Mass/Vol] 10.9 g/dL Low 12.0-15.0 [facility] Comment on above: Performed By: #### L 500.2500, L100.0100 ####[facility] [address] [place], [address] IG% 0.900 Normal 0.0-0.9 [facility] Comment on above: Result Comment: IG% - Immature Granulocytes (promyelocytes, myelocytes andmetamyelocytes) > 1% indicates that a LEFT SHIFT is Present. Performed By: #### L 500.2500, L100.0100 ####[facility] [address] [place], [address] Lymphocytes/100 WBC (Bld) 12.5 % Low 19-41 [facility] Comment on above: Performed By: #### L 500.2500, L100.0100 ####[facility] [address] [place], [address] MCH (RBC) [Entitic mass] 27.9 pg Normal 27.0-32.0 [facility] Comment on above: Performed By: #### L 500.2500, L100.0100 ####[facility] [address] [place], [address] MCHC (RBC) [Mass/Vol] 30.4 g/dL Low 32-36 [facility] Comment on above: Performed By: #### L 500.2500, L100.0100 ####[facility] [address] [place], [address] MCV (RBC) [Entitic vol] 91.6 fL Normal 81-[address] [facility] Comment on above: Performed By: #### L 500.2500, L100.0100 ####[facility] [address] [place], [address] Monocytes/100 WBC (Bld) 6.7 % Normal 0-[address] [facility] Comment on above: Performed By: #### L 500.2500, L100.0100 ####[facility] [address] [place], [address] Neutrophils/100 WBC (Bld) 78.7 % High 47-70 [facility] Comment on above: Performed By: #### L 500.2500, L100.0100 ####[facility] [address] [place], [address] Nucleated RBC (Bld) [#/Vol] 0 10*3/uL Normal 0-5 [facility] Comment on above: Performed By: #### L 500.2500, L100.0100 ####[facility] [address] [place], [address] Platelet mean volume (Bld) [Entitic vol] 11.5 fL Normal 6.2-12.0 [facility] Comment on above: Performed By: #### L 500.2500, L100.0100 ####[facility] [address] [place], [address] Platelets (Bld) [#/Vol] 337 10*3/uL Normal 150-450 [facility] Comment on above: Performed By: #### L 500.2500, L100.0100 ####[facility] [address] [place], [address] RBC (Bld) [#/Vol] 3.91 10*6/uL Low 4.2-5.4 [facility] Comment on above: Performed By: #### L 500.2500, L100.0100 ####[facility] [address] [place], [address] RDW SD 52.1 fl High 35.1-43.9 [facility] Comment on above: Performed By: #### L 500.2500, L100.0100 ####[facility] [address] [place], [address] WBC (Bld) [#/Vol] 12.2 10*3/uL High 4.4-11.0 [facility] Comment on above: Performed By: #### L 500.2500, L100.0100 ####[facility] [address] [place], [address] Absolute Neut Normal 2.0-7.7 [facility] Comment on above: Result Comment: Canc elled via OM: Order cancelled - Patient discharged Performed By: #### L 100.0100, L500.2500 ####[facility] [address] [place], [address] HCT Normal 37-47 [facility] Comment on above: Result Comment: Canc elled via OM: Order cancelled - Patient discharged Performed By: #### L 100.0100, L500.2500 ####[facility] [address] [place], [address] HGB Normal 12.0-15.0 [facility] Comment on above: Result Comment: Canc elled via OM: Order cancelled - Patient discharged Performed By: #### L 100.0100, L500.2500 ####[facility] [address] [place], [address] MCH Normal 27.0-32.0 [facility] Comment on above: Result Comment: Canc elled via OM: Order cancelled - Patient discharged Performed By: #### L 100.0100, L500.2500 ####[facility] [address] [place], [address] MCHC Normal 32-36 [facility] Comment on above: Result Comment: Canc elled via OM: Order cancelled - Patient discharged Performed By: #### L 100.0100, L500.2500 ####[facility] [address] [place], [address] MCV Normal 81-99 [facility] Comment on above: Result Comment: Canc elled via OM: Order cancelled - Patient discharged Performed By: #### L 100.0100, L500.2500 ####[facility] [address] [place], [address] NEUT% Normal 47-70 [facility] Comment on above: Result Comment: Canc elled via OM: Order cancelled - Patient discharged Performed By: #### L 100.0100, L500.2500 ####[facility] [address] [place], [address] PLT Normal 150-450 [facility] Comment on above: Result Comment: Canc elled via OM: Order cancelled - Patient discharged Performed By: #### L 100.0100, L500.2500 ####[facility] [address] [place], [address] RBC Normal 4.2-5.4 [facility] Comment on above: Result Comment: Canc elled via OM: Order cancelled - Patient discharged Performed By: #### L 100.0100, L500.2500 ####[facility] [address] [place], [address] RDW CV Normal 11.6-14.6 [facility] Comment on above: Result Comment: Canc elled via OM: Order cancelled - Patient discharged Performed By: #### L 100.0100, L500.2500 ####[facility] [address] [place], [address] RDW SD Normal 35.1-43.9 [facility] Comment on above: Result Comment: Canc elled via OM: Order cancelled - Patient discharged Performed By: #### L 100.0100, L500.2500 ####[facility] [address] [place], [address] WBC Normal 4.4-11.0 [facility] Comment on above: Result Comment: Canc elled via OM: Order cancelled - Patient discharged Performed By: #### L 100.0100, L500.2500 ####[facility] [address] [place], [address] Carbon dioxide, total [Moles /volume] in Central venous bloodOrdered By: Billy Kothari on 02-18-2025 CO2 [Moles/Vol] 28.1 mmol/L 21.0-32.0 [facility] Chest 1 View (Portable)on Chest 1 View (Portable) Normal [facility] Chloride assayOrdered By: Dante Kothari on 02-18-2025 Chloride [Moles/Vol] 97 mmol/L Low 98-108 [facility] Emergency Department Summary on 02-18-2025 Emergency Department Summary Normal [facility] Eosinophil percentageOrdered By: Billy Kothari on 02-18-2025 Eosinophils/100 WBC (Bld) 1.0 % 0-5 [facility] Erythrocyte distribution wid th ratioOrdered By: Billy Kothari on 02-18-2025 Erythrocyte distribution width (RBC) [Ratio] 15.9 % High 11.6-14.6 [facility] Erythrocyte distribution wid th standard deviationOrdered By: Billy Kothari on 02-18-2025 Erythrocyte distribution width (RBC) [Ratio] 52.1 fl High 35.1-43.9 [facility] Glomerular filtration rate ( GFR) estimation/1.73 sq m using serum, plasma, or whole bOrdered By: Billy Kothari on 02-18-2025 GFR/1.73 sq M.predicted among non-blacks MDRD (S/P/Bld) [Vol rate/Area] 43 mL/min/{1.73_m2} Low >60 [facility] Hematocrit Auto (Bld) [Volum e fraction]Ordered By: Billy Kothari on 02-18-2025 Hematocrit (Bld) [Volume fraction] 35.8 % Low 37-47 [facility] Hemoglobin measurementOrdere d By: Billy Kothari on 02-18-2025 Hemoglobin (Bld) [Mass/Vol] 10.9 g/dL Low 12.0-15.0 [facility] Immature granulocytes/100 WB C Auto (Bld)Ordered By: Billy Kothari on 02-18-2025 Immature granulocytes/100 WBC (Bld) 0.900 % 0.0-0.9 [facility] L503.7505on 02-18-2025 Natriuretic peptide B (Bld) [Mass/Vol] 3811 pg/mL High <=1800 [facility] Comment on above: Result Comment: Hear t Failure Unlikely: < 300 pg/mLHeart Failure Likely< 50 Years: > 450 pg/mL50-75 Years: > 900 pg/mL>75 Years: > 1800 pg/mL Performed By: #### L 503.7505 ####[facility] [address] [place], [address] MCV (mean corpuscular volume ) determinationOrdered By: Billy Kothari on 02-18-2025 MCV (RBC) [Entitic vol] 91.6 fL 81-[address] [facility] Mean corpuscular hemoglobin (MCH) determinationOrdered By: Billy Kothari on 02-18-2025 MCH (RBC) [Entitic mass] 27.9 pg 27.0-32.0 [facility] Monocyte percentageOrdered B y: Billy Kothari on 02-18-2025 Monocytes/100 WBC (Bld) 6.7 % 0-[address] [facility] Natriuretic peptide.B prohor hayley N-Terminal [Mass/volume] in Serum or PlasmaOrdered By: Billy Kothari on 02-18-2025 Natriuretic peptide.B prohormone N-Terminal [Mass/Vol] 3811 pg/mL High <1800 [facility] Neutrophil percentageOrdered By: Billy Kothari on 02-18-2025 Neutrophils/100 WBC (Bld) 78.7 % High 47-70 [facility] Platelet countOrdered By: Dante Kothari on 02-18-2025 Platelets (Bld) [#/Vol] 337 10*3/uL 150-450 [facility] Potassiumon 02-18-2025 Potassium [Moles/Vol] 4.7 mmol/L Normal 3.3-5.1 [facility] Comment on above: Performed By: #### L 501.5600 ####[facility] [address] [place], [place], [address] Potassium measurement (mass/ volume)Ordered By: Billy Kothari on 02-18-2025 Potassium (Unsp spec) [Mass/Vol] 4.7 mmol/L 3.3-5.1 [facility] RBC Auto (Bld) [#/Vol]Ordere d By: Billy Kothari on 02-18-2025 RBC (Bld) [#/Vol] 3.91 10*6/uL Low 4.2-5.4 [facility] Respiratory Cultureon 2024 RESPC Mixed normal respiratory karin. No Streptococcus pneumoniae, beta-hemolytic Streptococcus or Staphylococcus aureus isolated. Normal [facility] Comment on above: Performed By: #### M 100.2000, M100.2400 ####[facility] [address] [place], [place], [id number] Serum creatinine measurement (mass/volume)Ordered By: Billy Kothari on 02-18-2025 Creatinine [Mass/Vol] 1.26 mg/dL High 0.70-1.20 [facility] Serum glucose measurement (m ass/volume)Ordered By: Billy Kothari on 02-18-2025 Glucose [Mass/Vol] 174 mg/dL High 70-99 [facility] Serum or plasma calcium melanie urement (mass/volume)Ordered By: Billy Kothari on 02-18-2025 Calcium [Mass/Vol] 10.7 mg/dL 7.6-11.0 [facility] Serum or plasma urea nitroge n measurement (mass/volume)Ordered By: Billy Kothari on 02-18-2025 Urea nitrogen [Mass/Vol] 25 mg/dL High 4-19 [facility] Sodium levelOrdered By: Billy Kothari on 02-18-2025 Sodium [Moles/Vol] 136 mmol/L 133-145 [facility] White blood cell (WBC) count Ordered By: Billy Kothari on 02-18-2025 WBC (Bld) [#/Vol] 12.2 10*3/uL High 4.4-11.0 [facility] Absolute lymphocyte countOrd ered By: Heydi Amaya on 02-17-2025 Lymphocytes Auto (Unsp spec) [#/Vol] 0.58 10*3/uL Low 0.83-4.51 [facility] Anion gap in Serum or Plasma Ordered By: Heydi Amaya on 02-17-2025 Anion gap [Moles/Vol] 12 mmol/L 5-15 [facility] Automated lymphocyte count a s percentage of total leukocytesOrdered By: Heydi Amaya on 02-17-2025 Lymphocytes/100 WBC Auto (Unsp spec) 7.8 % Low 19-41 [facility] BUN/creatinine ratioOrdered By: Heydi Amaya on 02-17-2025 Urea nitrogen/Creatinine [Mass ratio] 23.0 mg/mg High 10-20 [facility] Basic Metabolic Profile (BMP )on 02-17-2025 BUN/CRE 23.0 RATIO High - [facility] Comment on above: Performed By: #### L 500.2500, L100.0100 ####[facility] [address] [place], [address] Calcium [Mass/Vol] 10.3 mg/dL Normal 7.6-11.0 [facility] Comment on above: Performed By: #### L 500.2500, L100.0100 ####[facility] [address] [place], [address] Chloride [Moles/Vol] 98 mmol/L Normal 98-108 [facility] Comment on above: Performed By: #### L 500.2500, L100.0100 ####[facility] [address] [place], [address] CO2 [Moles/Vol] 23.5 mmol/L Normal 21.0-32.0 [facility] Comment on above: Performed By: #### L 500.2500, L100.0100 ####[facility] [address] [place], [address] Creatinine [Mass/Vol] 1.15 mg/dL Normal 0.70-1.20 [facility] Comment on above: Performed By: #### L 500.2500, L100.0100 ####[facility] [address] [place], [address] ECRCL 37.29 ml/min Low 50-250 [facility] Comment on above: Performed By: #### L 500.2499, L100.0100 ####[facility] [address] [place], [address] GAP 12 Normal 5-15 [facility] Comment on above: Performed By: #### L 500.2499, L100.0100 ####[facility] [address] [place], [address] GFR/1.73 sq M.predicted among non-blacks MDRD (S/P/Bld) [Vol rate/Area] 48 mL/min/{1.73_m2} Low >60 [facility] Comment on above: Result Comment: mL/m in/1.73m2 CKD-EPI Creatinine Equation (2020) Performed By: #### L 500.2499, L100.0100 ####[facility] [address] [place], [address] Glucose [Mass/Vol] 426 mg/dL High 70-99 [facility] Comment on above: Performed By: #### L 500.2500, L100.0100 ####[facility] [address] [place], [address] Potassium [Moles/Vol] 5.3 mmol/L High 3.3-5.1 [facility] Comment on above: Performed By: #### L 500.2500, L100.0100 ####[facility] [address] [place], [address] Sodium [Moles/Vol] 134 mmol/L Normal 133-145 [facility] Comment on above: Performed By: #### L 500.2500, L100.0100 ####[facility] [address] [place], [address] Urea nitrogen [Mass/Vol] 27 mg/dL High 4-19 [facility] Comment on above: Performed By: #### L 500.2500, L100.0100 ####[facility] [address] [place], [address] Basophil percentageOrdered B y: Heydishraddha Amaya on 02-17-2025 Basophils/100 WBC (Bld) 0.1 % 0-[address] [facility] Bedside Glucoseon 02-17-2025 FINGERSTICK GLU 241 mg/dL High 74-106 [facility] Comment on above: Result Comment: KATARINA GEMENT OF PATIENT CARE PER NURSING PROTOCOL Performed By: #### L 501.080 ####[facility] [address] [place], [address] FINGERSTICK GLU 419 mg/dL High 74-106 [facility] Comment on above: Result Comment: KATARINA GEMENT OF PATIENT CARE PER NURSING PROTOCOL Performed By: #### L 501.080 ####[facility] [address] [place], [address] FINGERSTICK GLU 488 mg/dL Invalid Interpretation Code -106 [facility] Comment on above: Result Comment: KATARINA GEMENT OF PATIENT CARE PER NURSING PROTOCOL Performed By: #### L 501.080 ####[facility] [address] [place], [address] CBC W/Diff, Automatedon 01-30 Absolute Lymph 0.58 X10 3/uL Low 0.83-4.51 [facility] Comment on above: Performed By: #### L 500.2500, L100.0100 ####[facility] [address] [place], [address] Absolute Neut 6.4 X10 3/uL Normal 2.0-7.7 [facility] Comment on above: Performed By: #### L 500.2500, L100.0100 ####[facility] [address] [place], [address] Basophils/100 WBC (Bld) 0.1 % Normal 0-[address] [facility] Comment on above: Performed By: #### L 500.2500, L100.0100 ####[facility] [address] [place], [address] Eosinophils/100 WBC (Bld) 0.1 % Normal 0-5 [facility] Comment on above: Performed By: #### L 500.2500, L100.0100 ####[facility] [address] [place], [address] Erythrocyte distribution width (RBC) [Ratio] 15.6 % High 11.6-14.6 [facility] Comment on above: Performed By: #### L 500.2500, L100.0100 ####[facility] [address] [place], [address] Hematocrit (Bld) [Volume fraction] 32.6 % Low 37-47 [facility] Comment on above: Performed By: #### L 500.2500, L100.0100 ####[facility] [address] [place], [address] Hemoglobin (Bld) [Mass/Vol] 9.9 g/dL Low 12.0-15.0 [facility] Comment on above: Performed By: #### L 500.2500, L100.0100 ####[facility] [address] [place], [address] IG% 0.900 Normal 0.0-0.9 [facility] Comment on above: Result Comment: IG% - Immature Granulocytes (promyelocytes, myelocytes andmetamyelocytes) > 1% indicates that a LEFT SHIFT is Present. Performed By: #### L 500.2500, L100.0100 ####[facility] [address] [place], [address] Lymphocytes/100 WBC (Bld) 7.8 % Low 19-41 [facility] Comment on above: Performed By: #### L 500.2500, L100.0100 ####[facility] [address] [place], [address] MCH (RBC) [Entitic mass] 27.7 pg Normal 27.0-32.0 [facility] Comment on above: Performed By: #### L 500.2500, L100.0100 ####[facility] [address] [place], [address] MCHC (RBC) [Mass/Vol] 30.4 g/dL Low 32-36 [facility] Comment on above: Performed By: #### L 500.2500, L100.0100 ####[facility] [address] [place], [address] MCV (RBC) [Entitic vol] 91.3 fL Normal 81-99 [facility] Comment on above: Performed By: #### L 500.2500, L100.0100 ####[facility] [address] [place], [address] Monocytes/100 WBC (Bld) 5.0 % Normal 0-10 [facility] Comment on above: Performed By: #### L 500.2500, L100.0100 ####[facility] [address] [place], [address] Neutrophils/100 WBC (Bld) 86.1 % High 47-70 [facility] Comment on above: Performed By: #### L 500.2500, L100.0100 ####[facility] [address] [place], [address] Nucleated RBC (Bld) [#/Vol] 0 10*3/uL Normal 0-5 [facility] Comment on above: Performed By: #### L 500.2500, L100.0100 ####[facility] [address] [place], [address] Platelet mean volume (Bld) [Entitic vol] 11.2 fL Normal 6.2-12.0 [facility] Comment on above: Performed By: #### L 500.2500, L100.0100 ####[facility] [address] [place], [address] Platelets (Bld) [#/Vol] 246 10*3/uL Normal 150-450 [facility] Comment on above: Performed By: #### L 500.2500, L100.0100 ####[facility] [address] [place], [address] RBC (Bld) [#/Vol] 3.57 10*6/uL Low 4.2-5.4 [facility] Comment on above: Performed By: #### L 500.2500, L100.0100 ####[facility] [address] [place], [address] RDW SD 51.5 fl High 35.1-43.9 [facility] Comment on above: Performed By: #### L 500.2500, L100.0100 ####[facility] [address] [place], [address] WBC (Bld) [#/Vol] 7.5 10*3/uL Normal 4.4-11.0 [facility] Comment on above: Performed By: #### L 500.2500, L100.0100 ####[facility] [address] [place], [address] Carbon dioxide, total [Moles /volume] in Central venous bloodOrdered By: Heydi Amaya on 02-17-2025 CO2 [Moles/Vol] 23.5 mmol/L 21.0-32.0 [facility] Chloride assayOrdered By: Davy Amaya on 02-17-2025 Chloride [Moles/Vol] 98 mmol/L 98-108 [facility] Electrocardiogram reportOrde red By: Marcelina Soto on 02-17-2025 EKG study [facility] Work Phone: Eosinophil percentageOrdered By: Heydi Amaya on 02-17-2025 Eosinophils/100 WBC (Bld) 0.1 % 0-5 [facility] Erythrocyte distribution wid th ratioOrdered By: Heydi Amaya on 02-17-2025 Erythrocyte distribution width (RBC) [Ratio] 15.6 % High 11.6-14.6 [facility] Erythrocyte distribution wid th standard deviationOrdered By: Heydi Amaya on 02-17-2025 Erythrocyte distribution width (RBC) [Ratio] 51.5 fl High 35.1-43.9 [facility] Glomerular filtration rate ( GFR) estimation/1.73 sq m using serum, plasma, or whole bOrdered By: Heydi Amaya on 02-17-2025 GFR/1.73 sq M.predicted among non-blacks MDRD (S/P/Bld) [Vol rate/Area] 48 mL/min/{1.73_m2} Low >60 [facility]dered By: Heydi Amaya on 02-17-2025 Glucose [Mass/Vol] 241 mg/dL High 74-106 [facility] Hematocrit Auto (Bld) [Volum e fraction]Ordered By: Heydi Amaya on 02-17-2025 Hematocrit (Bld) [Volume fraction] 32.6 % Low 37-47 [facility] Hemoglobin measurementOrdere d By: Heydi Amaya on 02-17-2025 Hemoglobin (Bld) [Mass/Vol] 9.9 g/dL Low 12.0-15.0 [facility] Immature granulocytes/100 WB C Auto (Bld)Ordered By: Heydi Amaya on 02-17-2025 Immature granulocytes/100 WBC (Bld) 0.900 % 0.0-0.9 [facility] MCV (mean corpuscular volume ) determinationOrdered By: Heydi Amaya on 02-17-2025 MCV (RBC) [Entitic vol] 91.3 fL 81-[address] [facility] Mean corpuscular hemoglobin (MCH) determinationOrdered By: Heydi Amaya on 02-17-2025 MCH (RBC) [Entitic mass] 27.7 pg 27.0-32.0 [facility] Monocyte percentageOrdered B y: Heydi Amaya on 02-17-2025 Monocytes/100 WBC (Bld) 5.0 % 0-[address] [facility] Neutrophil percentageOrdered By: Heydi Amaya on 02-17-2025 Neutrophils/100 WBC (Bld) 86.1 % High 47-70 [facility] Platelet countOrdered By: Davy Amaya on 02-17-2025 Platelets (Bld) [#/Vol] 246 10*3/uL 150-450 [facility] Potassium measurement (mass/ volume)Ordered By: Heydi Amaya on 02-17-2025 Potassium (Unsp spec) [Mass/Vol] 5.3 mmol/L High 3.3-5.1 [facility] RBC Auto (Bld) [#/Vol]Ordere d By: Heydi Amaya on 02-17-2025 RBC (Bld) [#/Vol] 3.57 10*6/uL Low 4.2-5.4 [facility] Serum creatinine measurement (mass/volume)Ordered By: Heydi Amaya on 02-17-2025 Creatinine [Mass/Vol] 1.15 mg/dL 0.70-1.20 [facility] Serum glucose measurement (m ass/volume)Ordered By: Heydi Amaya on 02-17-2025 Glucose [Mass/Vol] 426 mg/dL High 70-99 [facility] Serum or plasma calcium melanie urement (mass/volume)Ordered By: Heydi Amaya on 02-17-2025 Calcium [Mass/Vol] 10.3 mg/dL 7.6-11.0 [facility] Serum or plasma urea nitroge n measurement (mass/volume)Ordered By: Heydi Amaya on 02-17-2025 Urea nitrogen [Mass/Vol] 27 mg/dL High 12-17 [facility] Sodium levelOrdered By: Rodolfo Amaya on 02-17-2025 Sodium [Moles/Vol] 134 mmol/L 133-145 [facility] White blood cell (WBC) count Ordered By: Heydi Amaya on 02-17-2025 WBC (Bld) [#/Vol] 7.5 10*3/uL 4.4-11.0 [facility] Basic Metabolic Profile (BMP )on 02-16-2025 BUN/CRE 22.0 RATIO High 06-19 [facility] Comment on above: Performed By: #### L 500.2500, L100.0500 ####[facility] [address] [place], [address] Calcium [Mass/Vol] 10.7 mg/dL Normal 7.6-11.0 [facility] Comment on above: Performed By: #### L 500.2500, L100.0500 ####[facility] [address] [place], [address] Chloride [Moles/Vol] 97 mmol/L Low 98-108 [facility] Comment on above: Performed By: #### L 500.2500, L100.0500 ####[facility] [address] [place], [address] CO2 [Moles/Vol] 29.5 mmol/L Normal 21.0-32.0 [facility] Comment on above: Performed By: #### L 500.2500, L100.0500 ####[facility] [address] [place], [address] Creatinine [Mass/Vol] 0.97 mg/dL Normal 0.70-1.20 [facility] Comment on above: Performed By: #### L 500.2500, L100.0500 ####[facility] [address] [place], [address] ECRCL 44.69 ml/min Low 50-250 [facility] Comment on above: Performed By: #### L 500.2500, L100.0500 ####[facility] [address] [place], [address] GAP 12 Normal 5-15 [facility] Comment on above: Performed By: #### L 500.2500, L100.0500 ####[facility] [address] [place], [address] GFR/1.73 sq M.predicted among non-blacks MDRD (S/P/Bld) [Vol rate/Area] 58 mL/min/{1.73_m2} Low >60 [facility] Comment on above: Result Comment: mL/m in/1.73m2 CKD-EPI Creatinine Equation (2020) Performed By: #### L 500.2500, L100.0500 ####[facility] [address] [place], [address] Glucose [Mass/Vol] 98 mg/dL Normal 70-99 [facility] Comment on above: Performed By: #### L 500.2500, L100.0500 ####[facility] [address] [place], [address] Potassium [Moles/Vol] 4.7 mmol/L Normal 3.3-5.1 [facility] Comment on above: Performed By: #### L 500.2500, L100.0500 ####[facility] [address] [place], [address] Sodium [Moles/Vol] 138 mmol/L Normal 133-145 [facility] Comment on above: Performed By: #### L 500.2500, L100.0500 ####[facility] [address] [place], [address] Urea nitrogen [Mass/Vol] 21 mg/dL High 4-19 [facility] Comment on above: Performed By: #### L 500.2500, L100.0500 ####[facility] [address] [place], [address] Bedside Glucoseon 02-16-2025 FINGERSTICK GLU 254 mg/dL High 74-106 [facility] Comment on above: Result Comment: KATARINA GEMENT OF PATIENT CARE PER NURSING PROTOCOL Performed By: #### L 501.080 ####[facility] [address] [place], [address] FINGERSTICK GLU 234 mg/dL High 74-106 [facility] Comment on above: Result Comment: KATARINA GEMENT OF PATIENT CARE PER NURSING PROTOCOL Performed By: #### L 501.080 ####[facility] [address] [place], [address] FINGERSTICK GLU 91 mg/dL Normal 74-106 [facility] Comment on above: Result Comment: KATARINA GEMENT OF PATIENT CARE PER NURSING PROTOCOL Performed By: #### L 501.080 ####[facility] [address] [place], [address] FINGERSTICK GLU 63 mg/dL Low 74-106 [facility] Comment on above: Result Comment: KATARINA GEMENT OF PATIENT CARE PER NURSING PROTOCOL Performed By: #### L 501.080 ####[facility] [address] [place], [address] CBC-Complete Blood Cnt No Di ffon 02-16-2025 Erythrocyte distribution width (RBC) [Ratio] 16.1 % High 11.6-14.6 [facility] Comment on above: Performed By: #### L 500.2500, L100.0500 ####[facility] [address] [place], [address] Hematocrit (Bld) [Volume fraction] 36.2 % Low 37-47 [facility] Comment on above: Performed By: #### L 500.2500, L100.0500 ####[facility] [address] [place], [address] Hemoglobin (Bld) [Mass/Vol] 11.0 g/dL Low 12.0-15.0 [facility] Comment on above: Performed By: #### L 500.2500, L100.0500 ####[facility] [address] [place], [address] MCH (RBC) [Entitic mass] 27.4 pg Normal 27.0-32.0 [facility] Comment on above: Performed By: #### L 500.2500, L100.0500 ####[facility] [address] [place], [address] MCHC (RBC) [Mass/Vol] 30.4 g/dL Low 32-36 [facility] Comment on above: Performed By: #### L 500.2500, L100.0500 ####[facility] [address] [place], [address] MCV (RBC) [Entitic vol] 90.0 fL Normal 81-99 [facility] Comment on above: Performed By: #### L 500.2500, L100.0500 ####[facility] [address] [place], [address] Platelet mean volume (Bld) [Entitic vol] 11.0 fL Normal 6.2-12.0 [facility] Comment on above: Performed By: #### L 500.2500, L100.0500 ####[facility] [address] [place], [address] Platelets (Bld) [#/Vol] 250 10*3/uL Normal 150-450 [facility] Comment on above: Performed By: #### L 500.2500, L100.0500 ####[facility] [address] [place], [address] RBC (Bld) [#/Vol] 4.02 10*6/uL Low 4.2-5.4 [facility] Comment on above: Performed By: #### L 500.2500, L100.0500 ####[facility] [address] [place], [address] RDW SD 52.3 fl High 35.1-43.9 [facility] Comment on above: Performed By: #### L 500.2500, L100.0500 ####[facility] [address] [place], [address] WBC (Bld) [#/Vol] 9.2 10*3/uL Normal 4.4-11.0 [facility] Comment on above: Performed By: #### L 500.2500, L100.0500 ####[facility] [address] [place], [address] Gram Stainon 02-16-2025 GS Acceptable Specimen? Yes (<25 Epithelial cells per/lpf) Gram Stain Rare Gram positive cocci Rare Gram positive rods No Epithelial cells Rare White Blood Cells Normal [facility] Comment on above: Performed By: #### M 100.2000, M100.2400 ####[facility] [address] [place], [address] Gram stainOrdered By: Ankit Jean-Baptiste on 02-16-2025 Microscopic observation Gram stain Nom (Unsp spec) [facility] Microbial respiratory cultur eOrdered By: Nestor Bartlett on 02-16-2025 Microorganism identified Cx Nom (Unsp spec) or Staphylococcus aureus isolated. [facility] 12 Lead EKGon 02-15-2025 12 Lead EKG Normal [facility] Absolute lymphocyte countOrd ered By: Remus Ungmasood on 02-15-2025 Lymphocytes Auto (Unsp spec) [#/Vol] 0.98 10*3/uL 0.83-4.51 [facility] Anion gap in Serum or Plasma Ordered By: Remus Ungmasood on 02-15-2025 Anion gap [Moles/Vol] 9 mmol/L 5-15 [facility] Automated lymphocyte count a s percentage of total leukocytesOrdered By: Remus Keegan on 02-15-2025 Lymphocytes/100 WBC Auto (Unsp spec) 10.9 % Low 19-41 [facility] BUN/creatinine ratioOrdered By: Remus Srinivasmasood on 02-15-2025 Urea nitrogen/Creatinine [Mass ratio] 23.1 mg/mg High 10- [facility] Basic Metabolic Profile (BMP )on 02-15-2025 BUN/CRE 23.1 RATIO High - [facility] Comment on above: Performed By: #### L 500.2500, L503.7505, L501.4021, L100.0100 ####[facility] [address] [place], [address] Calcium [Mass/Vol] 10.7 mg/dL Normal 7.6-11.0 [facility] Comment on above: Performed By: #### L 500.2500, L503.7505, L501.4021, L100.0100 ####[facility] [address] [place], [address] Chloride [Moles/Vol] 98 mmol/L Normal 98-108 [facility] Comment on above: Performed By: #### L 500.2500, L503.7505, L501.4021, L100.0100 ####[facility] [address] [place], [address] CO2 [Moles/Vol] 30.9 mmol/L Normal 21.0-32.0 [facility] Comment on above: Performed By: #### L 500.2500, L503.7505, L501.4021, L100.0100 ####[facility] [address] [place], [address] Creatinine [Mass/Vol] 1.04 mg/dL Normal 0.70-1.20 [facility] Comment on above: Performed By: #### L 500.2500, L503.7505, L501.4021, L100.0100 ####[facility] [address] [place], [address] ECRCL 41.98 ml/min Low 50-250 [facility] Comment on above: Performed By: #### L 500.2500, L503.7505, L501.4021, L100.0100 ####[facility] [address] [place], [address] GAP 9 Normal 5-15 [facility] Comment on above: Performed By: #### L 500.2500, L503.7505, L501.4021, L100.0100 ####[facility] [address] [place], [address] GFR/1.73 sq M.predicted among non-blacks MDRD (S/P/Bld) [Vol rate/Area] 54 mL/min/{1.73_m2} Low >60 [facility] Comment on above: Result Comment: mL/m in/1.73m2 CKD-EPI Creatinine Equation (2020) Performed By: #### L 500.2500, L503.7505, L501.4021, L100.0100 ####[facility] [address] [place], [address] Glucose [Mass/Vol] 97 mg/dL Normal 70-99 [facility] Comment on above: Performed By: #### L 500.2500, L503.7505, L501.4021, L100.0100 ####[facility] [address] [place], [address] Potassium [Moles/Vol] 4.3 mmol/L Normal 3.3-5.1 [facility] Comment on above: Performed By: #### L 500.2500, L503.7505, L501.4021, L100.0100 ####[facility] [address] [place], [address] Sodium [Moles/Vol] 138 mmol/L Normal 133-145 [facility] Comment on above: Performed By: #### L 500.2500, L503.7505, L501.4021, L100.0100 ####[facility] [address] [place], [address] Urea nitrogen [Mass/Vol] 24 mg/dL High 4-19 [facility] Comment on above: Performed By: #### L 500.2500, L503.7505, L501.4021, L100.0100 ####[facility] [address] [place], [address] Basophil percentageOrdered B y: Remus Ungur on 02-15-2025 Basophils/100 WBC (Bld) 0.1 % 0-[address] [facility] Bedside Glucoseon 02-15-2025 FINGERSTICK GLU 152 mg/dL High 74-106 [facility] Comment on above: Result Comment: KATARINA GEMENT OF PATIENT CARE PER NURSING PROTOCOL Performed By: #### L 501.080 ####[facility] [address] [place], [address] FINGERSTICK GLU 80 mg/dL Normal 74-106 [facility] Comment on above: Result Comment: KATARINA GEMENT OF PATIENT CARE PER NURSING PROTOCOL Performed By: #### L 501.080 ####[facility] [address] [place], [address] CBC W/Diff, Automatedon 01-29 Absolute Lymph 0.98 X10 3/uL Normal 0.83-4.51 [facility] Comment on above: Performed By: #### L 500.2500, L503.7505, L501.4021, L100.0100 ####[facility] [address] [place], [address] Absolute Neut 7.5 X10 3/uL Normal 2.0-7.7 [facility] Comment on above: Performed By: #### L 500.2500, L503.7505, L501.4021, L100.0100 ####[facility] [address] [place], [address] Basophils/100 WBC (Bld) 0.1 % Normal 0-[address] [facility] Comment on above: Performed By: #### L 500.2500, L503.7505, L501.4021, L100.0100 ####[facility] [address] [place], [address] Eosinophils/100 WBC (Bld) 0.7 % Normal 0-5 [facility] Comment on above: Performed By: #### L 500.2500, L503.7505, L501.4021, L100.0100 ####[facility] [address] [place], [address] Erythrocyte distribution width (RBC) [Ratio] 16.2 % High 11.6-14.6 [facility] Comment on above: Performed By: #### L 500.2500, L503.7505, L501.4021, L100.0100 ####[facility] [address] [place], [address] Hematocrit (Bld) [Volume fraction] 33.5 % Low 37-47 [facility] Comment on above: Performed By: #### L 500.2500, L503.7505, L501.4021, L100.0100 ####[facility] [address] [place], [address] Hemoglobin (Bld) [Mass/Vol] 10.1 g/dL Low 12.0-15.0 [facility] Comment on above: Performed By: #### L 500.2500, L503.7505, L501.4021, L100.0100 ####[facility] [address] [place], [address] IG% 1.000 High 0.0-0.9 [facility] Comment on above: Result Comment: IG% - Immature Granulocytes (promyelocytes, myelocytes andmetamyelocytes) > 1% indicates that a LEFT SHIFT is Present. Performed By: #### L 500.2500, L503.7505, L501.4021, L100.0100 ####[facility] [address] [place], [address] Lymphocytes/100 WBC (Bld) 10.9 % Low 19-41 [facility] Comment on above: Performed By: #### L 500.2500, L503.7505, L501.4021, L100.0100 ####[facility] [address] [place], [address] MCH (RBC) [Entitic mass] 27.0 pg Normal 27.0-32.0 [facility] Comment on above: Performed By: #### L 500.2500, L503.7505, L501.4021, L100.0100 ####[facility] [address] [place], [address] MCHC (RBC) [Mass/Vol] 30.1 g/dL Low 32-36 [facility] Comment on above: Performed By: #### L 500.2500, L503.7505, L501.4021, L100.0100 ####[facility] [address] [place], [address] MCV (RBC) [Entitic vol] 89.6 fL Normal 81-99 [facility] Comment on above: Performed By: #### L 500.2500, L503.7505, L501.4021, L100.0100 ####[facility] [address] [place], [address] Monocytes/100 WBC (Bld) 4.8 % Normal 0-[address] [facility] Comment on above: Performed By: #### L 500.2500, L503.7505, L501.4021, L100.0100 ####[facility] [address] [place], [address] Neutrophils/100 WBC (Bld) 82.5 % High 47-70 [facility] Comment on above: Performed By: #### L 500.2500, L503.7505, L501.4021, L100.0100 ####[facility] [address] [place], [address] Nucleated RBC (Bld) [#/Vol] 0 10*3/uL Normal 0-5 [facility] Comment on above: Performed By: #### L 500.2500, L503.7505, L501.4021, L100.0100 ####[facility] [address] [place], [address] Platelet mean volume (Bld) [Entitic vol] 10.4 fL Normal 6.2-12.0 [facility] Comment on above: Performed By: #### L 500.2500, L503.7505, L501.4021, L100.0100 ####[facility] [address] [place], [address] Platelets (Bld) [#/Vol] 243 10*3/uL Normal 150-450 [facility] Comment on above: Performed By: #### L 500.2500, L503.7505, L501.4021, L100.0100 ####[facility] [address] [place], [address] RBC (Bld) [#/Vol] 3.74 10*6/uL Low 4.2-5.4 [facility] Comment on above: Performed By: #### L 500.2500, L503.7505, L501.4021, L100.0100 ####[facility] [address] [place], [address] RDW SD 52.9 fl High 35.1-43.9 [facility] Comment on above: Performed By: #### L 500.2500, L503.7505, L501.4021, L100.0100 ####[facility] [address] [place], [address] WBC (Bld) [#/Vol] 9.0 10*3/uL Normal 4.4-11.0 [facility] Comment on above: Performed By: #### L 500.2500, L503.7505, L501.4021, L100.0100 ####[facility] [address] [place], [address] Carbon dioxide, total [Moles /volume] in Central venous bloodOrdered By: Robert Allison on 02-15-2025 CO2 [Moles/Vol] 30.9 mmol/L 21.0-32.0 [facility] Chest 1 View (Portable)on Chest 1 View (Portable) Normal [facility] Chloride assayOrdered By: Ester Allison on 02-15-2025 Chloride [Moles/Vol] 98 mmol/L 98-108 [facility] Emergency Department Summary on 02-15-2025 Emergency Department Summary Normal [facility] Eosinophil percentageOrdered By: Robert Allison on 02-15-2025 Eosinophils/100 WBC (Bld) 0.7 % 0-5 [facility] Erythrocyte distribution wid th ratioOrdered By: Robert Allison on 02-15-2025 Erythrocyte distribution width (RBC) [Ratio] 16.2 % High 11.6-14.6 [facility] Erythrocyte distribution wid th standard deviationOrdered By: Robert Allison on 02-15-2025 Erythrocyte distribution width (RBC) [Ratio] 52.9 fl High 35.1-43.9 [facility] Glomerular filtration rate ( GFR) estimation/1.73 sq m using serum, plasma, or whole bOrdered By: Robert Allison on 02-15-2025 GFR/1.73 sq M.predicted among non-blacks MDRD (S/P/Bld) [Vol rate/Area] 54 mL/min/{1.73_m2} Low >60 [facility] H AND P Exam - Hospitaliston 02-15-2025 H&P Exam - Hospitalist Normal [facility] Hematocrit Auto (Bld) [Volum e fraction]Ordered By: Robert Allison on 02-15-2025 Hematocrit (Bld) [Volume fraction] 33.5 % Low 37-47 [facility] Hemoglobin measurementOrdere d By: Robert Allison on 02-15-2025 Hemoglobin (Bld) [Mass/Vol] 10.1 g/dL Low 12.0-15.0 [facility] Immature granulocytes/100 WB C Auto (Bld)Ordered By: Cherrington Hospitalus Espinomasood on 02-15-2025 Immature granulocytes/100 WBC (Bld) 1.000 % High 0.0-0.9 [facility] L499.0042on 02-15-2025 Trop T High Sen 113 ng/L Invalid Interpretation Code <=14 [facility] Comment on above: Result Comment: Crit ical Result(s) Called at: 02/15/2025-13:14 by: Pat Smiley.??Results read back by same. Performed By: #### L 499.0042 ####[facility] [address] [facility] [place], [place], [address] L499.0043on 02-15-2025 Trop T High Sen 114 ng/L Invalid Interpretation Code <=14 [facility] Comment on above: Result Comment: Hemo lysis present, Results??could be affected.??CRIT CALLED BY ARCHIE MOE AT 1607Critical Result(s) Called at: by:??Results read back bysaks. Performed By: #### L 499.0043 ####[facility] [address] [place], [place], [address] L501.4021on 02-15-2025 Trop T High Sen 117 ng/L Invalid Interpretation Code <=14 [facility] Comment on above: Result Comment: Crit ical Result(s) Called at:02/15/2025-11:47 by: Pat Lopez.??Results read back by same. Performed By: #### L 500.2500, L503.7505, L501.4021, L100.0100 ####[facility] [address] [place], [address] L503.7505on 02-15-2025 Natriuretic peptide B (Bld) [Mass/Vol] 4408 pg/mL High <=1800 [facility] Comment on above: Result Comment: Hear t Failure Unlikely: < 300 pg/mLHeart Failure Likely< 50 Years: > 450 pg/mL50-75 Years: > 900 pg/mL>75 Years: > 1800 pg/mL Performed By: #### L 500.2500, L503.7505, L501.4021, L100.0100 ####[facility] [address] [place], [address] L509.7001on 02-15-2025 Procalcitonin 0.27 ng/mL High <=0.10 [facility] Comment on above: Result Comment: Inte rpretation:<0.10-0.25 ng/mL: Antibiotic therapy discouraged. Bacterialinfection unlikely.0.25-0.50 ng/mL: Antibiotic therapy encouraged. Bacterialinfection possible.>0.50 ng/mL: Antibiotic therapy strongly encouraged.Suggestive of presence of bacterial infection.PCT should always be interpreted in the clinical context ofthe patient. Therefore, clinicians should use the PCTresults in conjunction with other laboratory findings andclinical signs of the patient. Performed By: #### L 509.7001 ####[facility] [address] [place], [address] MCV (mean corpuscular volume ) determinationOrdered By: Remus Ungur on 02-15-2025 MCV (RBC) [Entitic vol] 89.6 fL 81-[address] [facility] Mean corpuscular hemoglobin (MCH) determinationOrdered By: Remus Ungur on 02-15-2025 MCH (RBC) [Entitic mass] 27.0 pg 27.0-32.0 [facility] Monocyte percentageOrdered B y: Remus Ungur on 02-15-2025 Monocytes/100 WBC (Bld) 4.8 % 0-[address] [facility] Natriuretic peptide.B prohor hayley N-Terminal [Mass/volume] in Serum or PlasmaOrdered By: Robert Allison on 02-15-2025 Natriuretic peptide.B prohormone N-Terminal [Mass/Vol] 4408 pg/mL High <1800 [facility] Neutrophil percentageOrdered By: Robert Allison on 02-15-2025 Neutrophils/100 WBC (Bld) 82.5 % High 47-70 [facility] Platelet countOrdered By: Ester Allison on 02-15-2025 Platelets (Bld) [#/Vol] 243 10*3/uL 150-450 [facility] Potassium measurement (mass/ volume)Ordered By: Robert Allison on 02-15-2025 Potassium (Unsp spec) [Mass/Vol] 4.3 mmol/L 3.3-5.1 [facility] Procalcitonin [Mass/volume] in Serum or Plasma by ImmunoassayOrdered By: Nestor Bartlett on 02-15-2025 Procalcitonin IA [Mass/Vol] 0.27 ng/mL High <0.11 [facility] RBC Auto (Bld) [#/Vol]Ordere d By: Robert Allison on 02-15-2025 RBC (Bld) [#/Vol] 3.74 10*6/uL Low 4.2-5.4 [facility] Serum creatinine measurement (mass/volume)Ordered By: Robert Allison on 02-15-2025 Creatinine [Mass/Vol] 1.04 mg/dL 0.70-1.20 [facility] Serum glucose measurement (m ass/volume)Ordered By: Robert Allison on 02-15-2025 Glucose [Mass/Vol] 97 mg/dL 70-99 [facility] Serum or plasma calcium melanie urement (mass/volume)Ordered By: Robert Allison on 02-15-2025 Calcium [Mass/Vol] 10.7 mg/dL 7.6-11.0 [facility] Serum or plasma urea nitroge n measurement (mass/volume)Ordered By: Robert Allison on 02-15-2025 Urea nitrogen [Mass/Vol] 24 mg/dL High 4-19 [facility] Sodium levelOrdered By: Lorena Allison on 02-15-2025 Sodium [Moles/Vol] 138 mmol/L 133-145 [facility] Troponin T.cardiac [Mass/vol ume] in Serum or Plasma by High sensitivity methodOrdered By: Robert Allison on 02-15-2025 Troponin T.cardiac High sensitivity method [Mass/Vol] 114 ng/L High <14 [facility] Troponin T.cardiac High sensitivity method [Mass/Vol] 113 ng/L High <14 [facility] Troponin T.cardiac High sensitivity method [Mass/Vol] 117 ng/L High <14 [facility] White blood cell (WBC) count Ordered By: Robert Allison on 02-15-2025 WBC (Bld) [#/Vol] 9.0 10*3/uL 4.4-11.0 [facility] Bedside Glucoseon 02-13-2025 FINGERSTICK GLU 337 mg/dL High 74-106 [facility] Comment on above: Result Comment: KATARINA GEMENT OF PATIENT CARE PER NURSING PROTOCOL Performed By: #### L 501.080 ####[facility] [address] [place], [address] FINGERSTICK GLU 302 mg/dL High [address] [address] Comment on above: Result Comment: KATARINA GEMENT OF PATIENT CARE PER NURSING PROTOCOL Performed By: #### L 501.080 ####[facility] [address] [place], [address] Discharge Instructionon 01-29 Discharge Instruction Normal [facility] Gl[facility] at [facility] deOrdered By: Lucio Borden on 02-13-2025 Glucose [Mass/Vol] 337 mg/dL High 74-106 [facility] Bedside Glucoseon 02-12-2025 FINGERSTICK GLU 236 mg/dL High -106 [facility] Comment on above: Result Comment: KATARINA GEMENT OF PATIENT CARE PER NURSING PROTOCOL Performed By: #### L 501.080 ####[facility] [address] [place], [address] FINGERSTICK GLU 112 mg/dL High -106 [facility] Comment on above: Result Comment: KATARINA GEMENT OF PATIENT CARE PER NURSING PROTOCOL Performed By: #### L 501.080 ####[facility] [address] [place], [address] FINGERSTICK GLU 471 mg/dL Invalid Interpretation Code [address] [place] [address] Comment on above: Result Comment: Dr Carina javier FollowedMANAGEMENT OF PATIENT CARE PER NURSING PROTOCOL Performed By: #### L 501.080 ####[facility] [address] [place], [address] FINGERSTICK GLU 492 mg/dL Invalid Interpretation Code [address] [place] [place] [address] Comment on above: Result Comment: Repe at TestMANAGEMENT OF PATIENT CARE PER NURSING PROTOCOL Performed By: #### L 501.080 ####[facility] [address] [place], [address] FINGERSTICK GLU 243 mg/dL High [address] [place] [place] [address] Comment on above: Result Comment: KATARINA GEMENT OF PATIENT CARE PER NURSING PROTOCOL Performed By: #### L 501.080 ####[facility] [address] [place], [address] FINGERSTICK GLU 312 mg/dL High [address] [place] [place] [address] Comment on above: Result Comment: KATARINA GEMENT OF PATIENT CARE PER NURSING PROTOCOL Performed By: #### L 501.080 ####[facility] [address] [place], [address] FINGERSTICK GLU 246 mg/dL High [address] [place] [address] Comment on above: Result Comment: KATARINA GEMENT OF PATIENT CARE PER NURSING PROTOCOL Performed By: #### L 501.080 ####[facility] [address] [place], [address] Bedside Glucoseon 02-11-2025 FINGERSTICK GLU 276 mg/dL High [address] [place] [place] [address] Comment on above: Result Comment: KATARINA GEMENT OF PATIENT CARE PER NURSING PROTOCOL Performed By: #### L 501.080 ####[facility] [address] [place], [address] FINGERSTICK GLU 124 mg/dL High [address] [place] [address] Comment on above: Result Comment: KATARINA GEMENT OF PATIENT CARE PER NURSING PROTOCOL Performed By: #### L 501.080 ####[facility] [address] [place], [address] FINGERSTICK GLU 257 mg/dL High [address] [place] [place] [address] Comment on above: Result Comment: KATARINA GEMENT OF PATIENT CARE PER NURSING PROTOCOL Performed By: #### L 501.080 ####[facility] [address] [place], [address] FINGERSTICK GLU 305 mg/dL High [address] [place] [address] Comment on above: Result Comment: KATARINA GEMENT OF PATIENT CARE PER NURSING PROTOCOL Performed By: #### L 501.080 ####[facility] [address] [place], [address] FINGERSTICK GLU 242 mg/dL High [address] [place] [place] [address] Comment on above: Result Comment: KATARINA GEMENT OF PATIENT CARE PER NURSING PROTOCOL Performed By: #### L 501.080 ####[facility] [address] [place], [address] FINGERSTICK GLU 206 mg/dL High [address] [place] [place] [address] Comment on above: Result Comment: KATARINA GEMENT OF PATIENT CARE PER NURSING PROTOCOL Performed By: #### L 501.080 ####[facility] [address] [place], [address] Anion gap in Serum or Plasma Ordered By: Lucio Borden on 02-10-2025 Anion gap [Moles/Vol] 14 mmol/L 5-15 [facility] BUN/creatinine ratioOrdered By: Lucio Borden on 02-10-2025 Urea nitrogen/Creatinine [Mass ratio] 20.8 mg/mg High 10-20 [facility] Basic Metabolic Profile (BMP )on 02-10-2025 BUN/CRE 20.8 RATIO High 10-20 [facility] Comment on above: Performed By: #### L 500.2500 ####[facility] [address] [place], [address] Calcium [Mass/Vol] 10.0 mg/dL Normal 7.6-11.0 [facility] Comment on above: Performed By: #### L 500.2500 ####[facility] [address] [place], [address] Chloride [Moles/Vol] 98 mmol/L Normal 98-108 [facility] Comment on above: Performed By: #### L 500.2500 ####[facility] [address] [place], [address] CO2 [Moles/Vol] 26.8 mmol/L Normal 21.0-32.0 [facility] Comment on above: Performed By: #### L 500.2500 ####[facility] [address] [place], [address] Creatinine [Mass/Vol] 1.10 mg/dL Normal 0.70-1.20 [facility] Comment on above: Performed By: #### L 500.2500 ####[facility] [address] [place], [address] ECRCL 39.32 ml/min Low 50-250 [facility] Comment on above: Performed By: #### L 500.2500 ####[facility] [address] [place], [address] GAP 14 Normal 5-15 [facility] Comment on above: Performed By: #### L 500.2500 ####[facility] [address] [place], [address] GFR/1.73 sq M.predicted among non-blacks MDRD (S/P/Bld) [Vol rate/Area] 50 mL/min/{1.73_m2} Low >60 [facility] Comment on above: Result Comment: mL/m in/1.73m2 CKD-EPI Creatinine Equation (2020) Performed By: #### L 500.2500 ####[facility] [address] [place], [address] Glucose [Mass/Vol] 361 mg/dL High 70-99 [facility] Comment on above: Performed By: #### L 500.2500 ####[facility] [address] [place], [address] Potassium [Moles/Vol] 4.9 mmol/L Normal 3.3-5.1 [facility] Comment on above: Performed By: #### L 500.2500 ####[facility] [address] [place], [address] Sodium [Moles/Vol] 139 mmol/L Normal 133-145 [facility] Comment on above: Performed By: #### L 500.2500 ####[facility] [address] [place], [address] Urea nitrogen [Mass/Vol] 23 mg/dL High 4-19 [facility] Comment on above: Performed By: #### L 500.2500 ####[facility] [address] [place], [address] Bedside Glucoseon 02-10-2025 FINGERSTICK GLU 167 mg/dL High 74-106 [facility] Comment on above: Result Comment: KATARINA GEMENT OF PATIENT CARE PER NURSING PROTOCOL Performed By: #### L 501.080 ####[facility] [address] [place], [address] FINGERSTICK GLU 78 mg/dL Normal 74-106 [facility] Comment on above: Result Comment: KATARINA GEMENT OF PATIENT CARE PER NURSING PROTOCOL Performed By: #### L 501.080 ####[facility] [address] [place], [address] FINGERSTICK GLU 64 mg/dL Low 74-106 [facility] Comment on above: Result Comment: KATARINA GEMENT OF PATIENT CARE PER NURSING PROTOCOL Performed By: #### L 501.080 ####[facility] [address] [place], [address] FINGERSTICK GLU 222 mg/dL High 74-106 [facility] Comment on above: Result Comment: KATARINA GEMENT OF PATIENT CARE PER NURSING PROTOCOL Performed By: #### L 501.080 ####[facility] [address] [place], [address] Carbon dioxide, total [Moles /volume] in Central venous bloodOrdered By: Lucio Borden on 02-10-2025 CO2 [Moles/Vol] 26.8 mmol/L 21.0-32.0 [facility] Chloride assayOrdered By: Chen Borden on 02-10-2025 Chloride [Moles/Vol] 98 mmol/L 98-108 [facility] Glomerular filtration rate ( GFR) estimation/1.73 sq m using serum, plasma, or whole bOrdered By: Lucio Borden on 02-10-2025 GFR/1.73 sq M.predicted among non-blacks MDRD (S/P/Bld) [Vol rate/Area] 50 mL/min/{1.73_m2} Low >60 [facility] Potassium measurement (mass/ volume)Ordered By: Lucio Borden on 02-10-2025 Potassium (Unsp spec) [Mass/Vol] 4.9 mmol/L 3.3-5.1 [facility] RESPIRATORY PANEL MOLECULARo n 02-10-2025 RP PANEL Normal [facility] Comment on above: Performed By: #### M 100.638 ####[facility] [address] [place], [address] Serum creatinine measurement (mass/volume)Ordered By: Lucio Borden on 02-10-2025 Creatinine [Mass/Vol] 1.10 mg/dL 0.70-1.20 [facility] Serum glucose measurement (m ass/volume)Ordered By: Lucio Borden on 02-10-2025 Glucose [Mass/Vol] 361 mg/dL High 70-99 [facility] Serum or plasma calcium melanie urement (mass/volume)Ordered By: Lucio Borden on 02-10-2025 Calcium [Mass/Vol] 10.0 mg/dL 7.6-11.0 [facility] Serum or plasma urea nitroge n measurement (mass/volume)Ordered By: Lucio Borden on 02-10-2025 Urea nitrogen [Mass/Vol] 23 mg/dL High 4-19 [facility] Sodium levelOrdered By: Lucio Borden on 02-10-2025 Sodium [Moles/Vol] 139 mmol/L 133-145 [facility] Absolute lymphocyte countOrd ered By: Jeremiah Corrales on 02-09-2025 Lymphocytes Auto (Unsp spec) [#/Vol] 0.69 10*3/uL Low 0.83-4.51 [facility] Anion gap in Serum or Plasma Ordered By: Jeremiah Corrales on 02-09-2025 Anion gap [Moles/Vol] 12 mmol/L 5-15 [facility] Automated lymphocyte count a s percentage of total leukocytesOrdered By: Jeremiah Corrales on 02-09-2025 Lymphocytes/100 WBC Auto (Unsp spec) 7.3 % Low 19-41 [facility] BUN/creatinine ratioOrdered By: Jeremiah Corrales on 02-09-2025 Urea nitrogen/Creatinine [Mass ratio] 20.2 mg/mg High 10-20 [facility] Basic Metabolic Profile (BMP )on 02-09-2025 BUN/CRE 20.2 RATIO High 10-20 [facility] Comment on above: Performed By: #### L 100.0100, L501.4021, L500.2500 ####[facility] [address] [place], [address] Calcium [Mass/Vol] 10.2 mg/dL Normal 7.6-11.0 [facility] Comment on above: Performed By: #### L 100.0100, L501.4021, L500.2500 ####[facility] [address] [place], [address] Chloride [Moles/Vol] 98 mmol/L Normal 98-108 [facility] Comment on above: Performed By: #### L 100.0100, L501.4021, L500.2500 ####[facility] [address] [place], [address] CO2 [Moles/Vol] 29.9 mmol/L Normal 21.0-32.0 [facility] Comment on above: Performed By: #### L 100.0100, L501.4021, L500.2500 ####[facility] [address] [place], [address] Creatinine [Mass/Vol] 1.16 mg/dL Normal 0.70-1.20 [facility] Comment on above: Performed By: #### L 100.0100, L501.4021, L500.2500 ####[facility] [address] [place], [address] ECRCL 37.42 ml/min Low 50-250 [facility] Comment on above: Performed By: #### L 100.0100, L501.4021, L500.2500 ####[facility] [address] [place], [address] GAP 12 Normal 5-15 [facility] Comment on above: Performed By: #### L 100.0100, L501.4021, L500.2500 ####[facility] [address] [place], [address] GFR/1.73 sq M.predicted among non-blacks MDRD (S/P/Bld) [Vol rate/Area] 47 mL/min/{1.73_m2} Low >60 [facility] Comment on above: Result Comment: mL/m in/1.73m2 CKD-EPI Creatinine Equation (2020) Performed By: #### L 100.0100, L501.4021, L500.2500 ####[facility] [address] [place], [address] Glucose [Mass/Vol] 173 mg/dL High 70-99 [facility] Comment on above: Performed By: #### L 100.0100, L501.4021, L500.2500 ####[facility] [address] [place], [address] Potassium [Moles/Vol] 4.3 mmol/L Normal 3.3-5.1 [facility] Comment on above: Performed By: #### L 100.0100, L501.4021, L500.2500 ####[facility] [address] [place], [address] Sodium [Moles/Vol] 140 mmol/L Normal 133-145 [facility] Comment on above: Performed By: #### L 100.0100, L501.4021, L500.2500 ####[facility] [address] [place], [address] Urea nitrogen [Mass/Vol] 23 mg/dL High 4-19 [facility] Comment on above: Performed By: #### L 100.0100, L501.4021, L500.2500 ####[facility] [address] [place], [address] Basophil percentageOrdered B y: Jeremiah Corrales on 02-09-2025 Basophils/100 WBC (Bld) 0.4 % 0-[address] [facility] Bedside Glucoseon 02-09-2025 FINGERSTICK GLU 401 mg/dL High 74-106 [facility] Comment on above: Result Comment: KATARINA GEMENT OF PATIENT CARE PER NURSING PROTOCOL Performed By: #### L 501.080 ####[facility] [address] [place], [address] FINGERSTICK GLU 248 mg/dL High 74-106 [facility] Comment on above: Result Comment: KATARINA GEMENT OF PATIENT CARE PER NURSING PROTOCOL Performed By: #### L 501.080 ####[facility] [address] [place], [address] CBC W/Diff, Automatedon 01-29 PLT EST ADEQUATE Normal ADEQ [facility] Comment on above: Performed By: #### L 100.0100, L501.4021, L500.2500 ####[facility] [address] [place], [address] Carbon dioxide, total [Moles /volume] in Central venous bloodOrdered By: Jeremiah Corrales on 02-09-2025 CO2 [Moles/Vol] 29.9 mmol/L 21.0-32.0 [facility] Chest PA and Lateralon 02-09 Chest PA and Lateral Normal [facility] Chloride assayOrdered By: Enio Corrales on 02-09-2025 Chloride [Moles/Vol] 98 mmol/L 98-108 [facility] Emergency Department Summary on 02-09-2025 Emergency Department Summary Normal [facility] Eosinophil percentageOrdered By: Jeremiah Corrales on 02-09-2025 Eosinophils/100 WBC (Bld) 0.1 % 0-5 [facility] Erythrocyte distribution wid th ratioOrdered By: Jeremiah Corrales on 02-09-2025 Erythrocyte distribution width (RBC) [Ratio] 15.8 % High 11.6-14.6 [facility] Erythrocyte distribution wid th standard deviationOrdered By: Jeremiah Corrales on 02-09-2025 Erythrocyte distribution width (RBC) [Ratio] 51.3 fl High 35.1-43.9 [facility] Glomerular filtration rate ( GFR) estimation/1.73 sq m using serum, plasma, or whole bOrdered By: Jeremiah Corrales on 02-09-2025 GFR/1.73 sq M.predicted among non-blacks MDRD (S/P/Bld) [Vol rate/Area] 47 mL/min/{1.73_m2} Low >60 [facility] H AND P Exam - Hospitaliston 02-09-2025 H&P Exam - Hospitalist Normal [facility] Hematocrit Auto (Bld) [Volum e fraction]Ordered By: Jeremiah Corrales on 02-09-2025 Hematocrit (Bld) [Volume fraction] 37.9 % 37-47 [facility] Hemoglobin measurementOrdere d By: Jeremiah Corrales on 02-09-2025 Hemoglobin (Bld) [Mass/Vol] 11.5 g/dL Low 12.0-15.0 [facility] Immature granulocytes/100 WB C Auto (Bld)Ordered By: Jeremiah Corrales on 02-09-2025 Immature granulocytes/100 WBC (Bld) 0.800 % 0.0-0.9 [facility] L499.0042on 02-09-2025 Trop T High Sen 119 ng/L Invalid Interpretation Code <=14 [facility] Comment on above: Result Comment: Crit ical Result(s) Called VANE GRAVES at: 1520 by:VIET??Results read back by same. Performed By: #### L 499.0042 ####[facility] [address] [place], [place], [address] L501.4021on 02-09-2025 Trop T High Sen 122 ng/L Invalid Interpretation Code <=14 [facility] Comment on above: Result Comment: Crit ical Result(s) Called at 1330: by: SHARONA ROWELL. ??Results read back by same. Performed By: #### L 100.0100, L501.4021, L500.2500 ####[facility] [address] [place], [place], [address] L503.7505on 02-09-2025 Natriuretic peptide B (Bld) [Mass/Vol] 9616 pg/mL High <=1800 [facility] Comment on above: Result Comment: Hear t Failure Unlikely: < 300 pg/mLHeart Failure Likely< 50 Years: > 450 pg/mL50-75 Years: > 900 pg/mL>75 Years: > 1800 pg/mL Performed By: #### L 503.7505 ####[facility] [address] [place], [place], [id number] MCV (mean corpuscular volume ) determinationOrdered By: Jeremiah Corrales on 02-09-2025 MCV (RBC) [Entitic vol] 89.8 fL 81-[address] [facility] Mean corpuscular hemoglobin (MCH) determinationOrdered By: Jeremiah Corrales on 02-09-2025 MCH (RBC) [Entitic mass] 27.3 pg 27.0-32.0 [facility] Monocyte percentageOrdered B y: Jeremiah Corrales on 02-09-2025 Monocytes/100 WBC (Bld) 4.5 % 0-[address] [facility] Natriuretic peptide.B prohor hayley N-Terminal [Mass/volume] in Serum or PlasmaOrdered By: Jeremiah Corrales on 02-09-2025 Natriuretic peptide.B prohormone N-Terminal [Mass/Vol] 9616 pg/mL High <1800 [facility] Neutrophil percentageOrdered By: Jeremiah Corrales on 02-09-2025 Neutrophils/100 WBC (Bld) 86.9 % High 47-70 [facility] Platelet countOrdered By: Enio Corrales on 02-09-2025 Platelet count TNP [facility] Platelet estimateOrdered By: Jeremiah Corrales on 02-09-2025 Platelets LM Ql (Bld) ADEQUATE ADEQ [facility] Potassium measurement (mass/ volume)Ordered By: Jeremiah Corrales on 02-09-2025 Potassium (Unsp spec) [Mass/Vol] 4.3 mmol/L 3.3-5.1 [facility] RBC Auto (Bld) [#/Vol]Ordere d By: Jeremiah Corrales on 02-09-2025 RBC (Bld) [#/Vol] 4.22 10*6/uL 4.2-5.4 [facility] Respiratory pathogens detect ion panel by molecular detection methodOrdered By: Tono Gomez on 02-09-2025 Respiratory pathogens DNA and RNA panel BEBETO+probe (Resp) Parainfluenza 3 Abnormal [facility] Serum creatinine measurement (mass/volume)Ordered By: Jeremiah Corrales on 02-09-2025 Creatinine [Mass/Vol] 1.16 mg/dL 0.70-1.20 [facility] Serum glucose measurement (m ass/volume)Ordered By: Jeremiah Corrales on 02-09-2025 Glucose [Mass/Vol] 173 mg/dL High 70-99 [facility] Serum or plasma calcium melanie urement (mass/volume)Ordered By: Jeremiah Corrales on 02-09-2025 Calcium [Mass/Vol] 10.2 mg/dL 7.6-11.0 [facility] Serum or plasma urea nitroge n measurement (mass/volume)Ordered By: Jeremiah Corrales on 02-09-2025 Urea nitrogen [Mass/Vol] 23 mg/dL High 4-19 [facility] Sodium levelOrdered By: Jeremiah Corrales on 02-09-2025 Sodium [Moles/Vol] 140 mmol/L 133-145 [facility] Troponin T.cardiac [Mass/vol ume] in Serum or Plasma by High sensitivity methodOrdered By: Jeremiah Corrales on 02-09-2025 Troponin T.cardiac High sensitivity method [Mass/Vol] 119 ng/L High <14 [facility] Troponin T.cardiac High sensitivity method [Mass/Vol] 122 ng/L High <14 [facility] White blood cell (WBC) count Ordered By: Jeremiah Corrales on 02-09-2025 WBC (Bld) [#/Vol] 9.4 10*3/uL 4.4-11.0 [facility] Absolute lymphocyte countOrd ered By: Ramone Smiley on 02-07-2025 Lymphocytes Auto (Unsp spec) [#/Vol] 0.84 10*3/uL 0.83-4.51 [facility] Anion gap in Serum or Plasma Ordered By: Ramone Smiley on 02-07-2025 Anion gap [Moles/Vol] 12 mmol/L 5-15 [facility] Automated lymphocyte count a s percentage of total leukocytesOrdered By: Ramone Smiley on 02-07-2025 Lymphocytes/100 WBC Auto (Unsp spec) 7.3 % Low 19-41 [facility] BUN/creatinine ratioOrdered By: Ramone Smiley on 02-07-2025 Urea nitrogen/Creatinine [Mass ratio] 17.7 mg/mg 10-20 [facility] Basophil percentageOrdered B y: Ramone Smiley on 02-07-2025 Basophils/100 WBC (Bld) 0.1 % 0- [facility] Bilirubin, totalOrdered By: Ramone Smiley on 02-07-2025 Bilirubin [Mass/Vol] 0.25 mg/dL 0.00-1.30 [facility] CBC W/Diff, Automatedon 01-29 Absolute Lymph 0.84 X10 3/uL Normal 0.83-4.51 [facility] Comment on above: Order Comment: Order Date: 02/07/25Order Info: 0184-1 - CBCD Performed By: #### L 100.0100, L500.4050 ####[facility] [address] [place], [address] Absolute Neut 10.0 X10 3/uL High 2.0-7.7 [facility] Comment on above: Order Comment: Order Date: 02/07/25Order Info: 0184-1 - CBCD Performed By: #### L 100.0100, L500.4050 ####[facility] [address] [place], [address] Basophils/100 WBC (Bld) 0.1 % Normal 0-[address] [facility] Comment on above: Order Comment: Order Date: 02/07/25Order Info: 0184-1 - CBCD Performed By: #### L 100.0100, L500.4050 ####[facility] [address] [place], [address] Eosinophils/100 WBC (Bld) 0.0 % Normal 0-5 [facility] Comment on above: Order Comment: Order Date: 02/07/25Order Info: 0184-1 - CBCD Performed By: #### L 100.0100, L500.4050 ####[facility] [address] [place], [address] Erythrocyte distribution width (RBC) [Ratio] 15.7 % High 11.6-14.6 [facility] Comment on above: Order Comment: Order Date: 02/07/25Order Info: 0184-1 - CBCD Performed By: #### L 100.0100, L500.4050 ####[facility] [address] [place], [address] Hematocrit (Bld) [Volume fraction] 36.8 % Low 37-47 [facility] Comment on above: Order Comment: Order Date: 02/07/25Order Info: 018-1 - CBCD Performed By: #### L 100.0100, L500.4050 ####[facility] [address] [place], [address] Hemoglobin (Bld) [Mass/Vol] 11.4 g/dL Low 12.0-15.0 [facility] Comment on above: Order Comment: Order Date: 02/07/25Order Info: 018-1 - CBCD Performed By: #### L 100.0100, L500.4050 ####[facility] [address] [place], [address] IG% 0.400 Normal 0.0-0.9 [facility] Comment on above: Order Comment: Order Date: 02/07/25Order Info: 018- - CBCD Result Comment: IG% - Immature Granulocytes (promyelocytes, myelocytes andmetamyelocytes) > 1% indicates that a LEFT SHIFT is Present. Performed By: #### L 100.0100, L500.4050 ####[facility] [address] [place], [address] Lymphocytes/100 WBC (Bld) 7.3 % Low 19-41 [facility] Comment on above: Order Comment: Order Date: 02/07/25Order Info: 018-1 - CBCD Performed By: #### L 100.0100, L500.4050 ####[facility] [address] [place], [address] MCH (RBC) [Entitic mass] 27.9 pg Normal 27.0-32.0 [facility] Comment on above: Order Comment: Order Date: 02/07/25Order Info: 018- - CBCD Performed By: #### L 100.0100, L500.4050 ####[facility] [address] [place], [address] MCHC (RBC) [Mass/Vol] 31.0 g/dL Low 32-36 [facility] Comment on above: Order Comment: Order Date: 02/07/25Order Info: 0184-1 - CBCD Performed By: #### L 100.0100, L500.4050 ####[facility] [address] [place], [address] MCV (RBC) [Entitic vol] 90.2 fL Normal 81-[address] [facility] Comment on above: Order Comment: Order Date: 02/07/25Order Info: 0184-1 - CBCD Performed By: #### L 100.0100, L500.4050 ####[facility] [address] [place], [address] Monocytes/100 WBC (Bld) 5.2 % Normal 0-10 [facility] Comment on above: Order Comment: Order Date: 02/07/25Order Info: 0184-1 - CBCD Performed By: #### L 100.0100, L500.4050 ####[facility] [address] [place], [address] Neutrophils/100 WBC (Bld) 87.0 % High 47-70 [facility] Comment on above: Order Comment: Order Date: 02/07/25Order Info: 0184-1 - CBCD Performed By: #### L 100.0100, L500.4050 ####[facility] [address] [place], [address] Nucleated RBC (Bld) [#/Vol] 0 10*3/uL Normal 0-5 [facility] Comment on above: Order Comment: Order Date: 02/07/25Order Info: 0184-1 - CBCD Performed By: #### L 100.0100, L500.4050 ####[facility] [address] [place], [address] Platelet mean volume (Bld) [Entitic vol] 11.5 fL Normal 6.2-12.0 [facility] Comment on above: Order Comment: Order Date: 02/07/25Order Info: 0184-1 - CBCD Performed By: #### L 100.0100, L500.4050 ####[facility] [address] [place], [address] Platelets (Bld) [#/Vol] 247 10*3/uL Normal 150-450 [facility] Comment on above: Order Comment: Order Date: 02/07/25Order Info: 0184-1 - CBCD Performed By: #### L 100.0100, L500.4050 ####[facility] [address] [place], [address] RBC (Bld) [#/Vol] 4.08 10*6/uL Low 4.2-5.4 [facility] Comment on above: Order Comment: Order Date: 02/07/25Order Info: 0184-1 - CBCD Performed By: #### L 100.0100, L500.4050 ####[facility] [address] [place], [address] RDW SD 51.8 fl High 35.1-43.9 [facility] Comment on above: Order Comment: Order Date: 02/07/25Order Info: 0184-1 - CBCD Performed By: #### L 100.0100, L500.4050 ####[facility] [address] [place], [address] WBC (Bld) [#/Vol] 11.5 10*3/uL High 4.4-11.0 [facility] Comment on above: Order Comment: Order Date: 02/07/25Order Info: 0184-1 - CBCD Performed By: #### L 100.0100, L500.4050 ####[facility] [address] [place], [address] Carbon dioxide, total [Moles /volume] in Central venous bloodOrdered By: Ramone Smiley on 06-10-2025 CO2 [Moles/Vol] 27.9 mmol/L 21.0-32.0 [facility] Chloride assayOrdered By: Richar Smiley on 02-07-2025 Chloride [Moles/Vol] 96 mmol/L Low 98-108 [facility] Comprehensive Metabolic Prof ilon 02-07-2025 Albumin [Mass/Vol] 3.3 g/dL Low 3.4-4.8 [facility] Comment on above: Order Comment: URINE UTOOrder Date: 02/07/25Order Info: 0786-1 - CMP Performed By: #### L 100.0100, L500.4050 ####[facility] [address] [place], [address] Albumin/Globulin [Mass ratio] 1.0 {ratio} Normal 0.9-2.4 [facility] Comment on above: Order Comment: URINE UTOOrder Date: 02/07/25Order Info: 0786-1 - CMP Performed By: #### L 100.0100, L500.4050 ####[facility] [address] [place], [address] ALK PHOS 86 U/L Normal 35-104 [facility] Comment on above: Order Comment: URINE UTOOrder Date: 02/07/25Order Info: 0786-1 - CMP Performed By: #### L 100.0100, L500.4050 ####[facility] [address] [place], [address] ALT [Catalytic activity/Vol] 20 U/L Normal <=34 [facility] Comment on above: Order Comment: URINE UTOOrder Date: 02/07/25Order Info: 0786-1 - CMP Performed By: #### L 100.0100, L500.4050 ####[facility] [address] [place], [address] AST [Catalytic activity/Vol] 29 U/L Normal <=31 [facility] Comment on above: Order Comment: URINE UTOOrder Date: 02/07/25Order Info: 0786-1 - CMP Performed By: #### L 100.0100, L500.4050 ####[facility] [address] [place], [address] Bilirubin [Mass/Vol] 0.25 mg/dL Normal 0.00-1.30 [facility] Comment on above: Order Comment: URINE UTOOrder Date: 02/07/25Order Info: 0786-1 - CMP Performed By: #### L 100.0100, L500.4050 ####[facility] [address] [place], [address] BUN/CRE 17.7 RATIO Normal 10-20 [facility] Comment on above: Order Comment: URINE UTOOrder Date: 02/07/25Order Info: 0786-1 - CMP Performed By: #### L 100.0100, L500.4050 ####[facility] [address] [place], [address] Calcium [Mass/Vol] 10.2 mg/dL Normal 7.6-11.0 [facility] Comment on above: Order Comment: URINE UTOOrder Date: 02/07/25Order Info: 0786-1 - CMP Performed By: #### L 100.0100, L500.4050 ####[facility] [address] [place], [address] Chloride [Moles/Vol] 96 mmol/L Low 98-108 [facility] Comment on above: Order Comment: URINE UTOOrder Date: 02/07/25Order Info: 0786-1 - CMP Performed By: #### L 100.0100, L500.4050 ####[facility] [address] [place], [address] CO2 [Moles/Vol] 27.9 mmol/L Normal 21.0-32.0 [facility] Comment on above: Order Comment: URINE UTOOrder Date: 02/07/25Order Info: 0786-1 - CMP Performed By: #### L 100.0100, L500.4050 ####[facility] [address] [place], [address] Creatinine [Mass/Vol] 1.37 mg/dL High 0.70-1.20 [facility] Comment on above: Order Comment: URINE UTOOrder Date: 02/07/25Order Info: 0786-1 - CMP Performed By: #### L 100.0100, L500.4050 ####[facility] [address] [place], [address] GAP 12 Normal 5-15 [facility] Comment on above: Order Comment: URINE UTOOrder Date: 02/07/25Order Info: 0786-1 - CMP Performed By: #### L 100.0100, L500.4050 ####[facility] [address] [place], [address] GFR/1.73 sq M.predicted among non-blacks MDRD (S/P/Bld) [Vol rate/Area] 39 mL/min/{1.73_m2} Low >60 [facility] Comment on above: Order Comment: URINE UTOOrder Date: 02/07/25Order Info: 0786-1 - CMP Result Comment: mL/m in/1.73m2 CKD-EPI Creatinine Equation (2020) Performed By: #### L 100.0100, L500.4050 ####[facility] [address] [place], [address] Globulin (S) [Mass/Vol] 3.2 g/dL Normal 2.2-4.2 [facility] Comment on above: Order Comment: URINE UTOOrder Date: 02/07/25Order Info: 0786-1 - CMP Performed By: #### L 100.0100, L500.4050 ####[facility] [address] [place], [address] Glucose [Mass/Vol] 254 mg/dL High 70-99 [facility] Comment on above: Order Comment: URINE UTOOrder Date: 02/07/25Order Info: 785-1 - CMP Performed By: #### L 100.0100, L500.4050 ####[facility] [address] [place], [address] Potassium [Moles/Vol] 5.1 mmol/L Normal 3.3-5.1 [facility] Comment on above: Order Comment: URINE UTOOrder Date: 02/07/25Order Info: 785-1 - CMP Performed By: #### L 100.0100, L500.4050 ####[facility] [address] [place], [address] Sodium [Moles/Vol] 136 mmol/L Normal 133-145 [facility] Comment on above: Order Comment: URINE UTOOrder Date: 02/07/25Order Info: 785-1 - CMP Performed By: #### L 100.0100, L500.4050 ####[facility] [address] [place], [address] T PROT 6.5 g/dL Normal 5.9-8.4 [facility] Comment on above: Order Comment: URINE UTOOrder Date: 02/07/25Order Info: 785-1 - CMP Performed By: #### L 100.0100, L500.4050 ####[facility] [address] [place], [address] Urea nitrogen [Mass/Vol] 24 mg/dL High 4-19 [facility] Comment on above: Order Comment: URINE UTOOrder Date: 02/07/25Order Info: 86-1 - CMP Performed By: #### L 100.0100, L500.4050 ####[facility] [address] [place], [address] Eosinophil percentageOrdered By: Ramone Smiley on 02-07-2025 Eosinophils/100 WBC (Bld) 0.0 % 0-5 [facility] Erythrocyte distribution wid th ratioOrdered By: Ramone Smiley on 02-07-2025 Erythrocyte distribution width (RBC) [Ratio] 15.7 % High 11.6-14.6 [facility] Erythrocyte distribution wid th standard deviationOrdered By: Ramone Smiley on 02-07-2025 Erythrocyte distribution width (RBC) [Ratio] 51.8 fl High 35.1-43.9 [facility] Glomerular filtration rate ( GFR) estimation/1.73 sq m using serum, plasma, or whole bOrdered By: Ramone Smiley on 02-07-2025 GFR/1.73 sq M.predicted among non-blacks MDRD (S/P/Bld) [Vol rate/Area] 39 mL/min/{1.73_m2} Low >60 [facility] Hematocrit Auto (Bld) [Volum e fraction]Ordered By: Ramone Smiley on 02-07-2025 Hematocrit (Bld) [Volume fraction] 36.8 % Low 37-47 [facility] Hemoglobin measurementOrdere d By: Ramone Smiley on 02-07-2025 Hemoglobin (Bld) [Mass/Vol] 11.4 g/dL Low 12.0-15.0 [facility] Immature granulocytes/100 WB C Auto (Bld)Ordered By: Ramone Smiley on 02-07-2025 Immature granulocytes/100 WBC (Bld) 0.400 % 0.0-0.9 [facility] MCV (mean corpuscular volume ) determinationOrdered By: Ramone Smiley on 02-07-2025 MCV (RBC) [Entitic vol] 90.2 fL 81-[address] [facility] Mean corpuscular hemoglobin (MCH) determinationOrdered By: Ramone Smiley on 02-07-2025 MCH (RBC) [Entitic mass] 27.9 pg 27.0-32.0 [facility] Monocyte percentageOrdered B y: Ramnoe Smiley on 02-07-2025 Monocytes/100 WBC (Bld) 5.2 % 0-[address] [facility] Neutrophil percentageOrdered By: Ramone Smiley on 02-07-2025 Neutrophils/100 WBC (Bld) 87.0 % High 47-70 [facility] No Panel InformationOrdered By: Ramone Smiley on 02-07-2025 29 U/L <32 [facility] Platelet countOrdered By: Richar Smiley on 02-07-2025 Platelets (Bld) [#/Vol] 247 10*3/uL 150-450 [facility] Potassium measurement (mass/ volume)Ordered By: Ramone Smiley on 02-07-2025 Potassium (Unsp spec) [Mass/Vol] 5.1 mmol/L 3.3-5.1 [facility] RBC Auto (Bld) [#/Vol]Ordere d By: Ramone Smiley on 02-07-2025 RBC (Bld) [#/Vol] 4.08 10*6/uL Low 4.2-5.4 [facility] Serum creatinine measurement (mass/volume)Ordered By: Ramone Smiley on 02-07-2025 Creatinine [Mass/Vol] 1.37 mg/dL High 0.70-1.20 [facility] Serum globulin measurementOr dered By: Ramone Smiley on 02-07-2025 Globulin (S) [Mass/Vol] 3.2 g/dL 2.2-4.2 [facility] Serum glucose measurement (m ass/volume)Ordered By: Ramone Smiley on 02-07-2025 Glucose [Mass/Vol] 254 mg/dL High 70-99 [facility] Serum or plasma alanine kelley otransferase (ALT) measurementOrdered By: Ramone Smiley on 02-07-2025 ALT [Catalytic activity/Vol] 20 U/L <35 [facility] Serum or plasma albumin melanie urement (mass/volume)Ordered By: Ramone Smiley on 02-07-2025 Albumin [Mass/Vol] 3.3 g/dL Low 3.4-4.8 [facility] Serum or plasma albumin/glob ulin mass ratioOrdered By: Ramone Smiley on 02-07-2025 Albumin/Globulin [Mass ratio] 1.0 {ratio} 0.9-2.4 [facility] Serum or plasma alkaline lissa sphatase measurementOrdered By: Ramone Smiley on 02-07-2025 ALP [Catalytic activity/Vol] 86 U/L 35-104 [facility] Serum or plasma calcium melanie urement (mass/volume)Ordered By: Ramone Smiley on 02-07-2025 Calcium [Mass/Vol] 10.2 mg/dL 7.6-11.0 [facility] Serum or plasma urea nitroge n measurement (mass/volume)Ordered By: Ramone Smiley on 02-07-2025 Urea nitrogen [Mass/Vol] 24 mg/dL High 4-19 [facility] Sodium levelOrdered By: Ramone Smiley on 02-07-2025 Sodium [Moles/Vol] 136 mmol/L 133-145 [facility] Total proteinOrdered By: Lilliam Smiley on 02-07-2025 Protein [Mass/Vol] 6.5 g/dL 5.9-8.4 [facility] White blood cell (WBC) count Ordered By: Ramone Smiley on 02-07-2025 WBC (Bld) [#/Vol] 11.5 10*3/uL High 4.4-11.0 [facility] Bedside Glucoseon 02-06-2025 FINGERSTICK GLU 190 mg/dL High 74-106 [facility] Comment on above: Result Comment: KATARINA GEMENT OF PATIENT CARE PER NURSING PROTOCOL Performed By: #### L 501.080 ####[facility] [address] [place], [address] FINGERSTICK GLU 237 mg/dL High 74-106 [facility] Comment on above: Result Comment: KATARINA GEMENT OF PATIENT CARE PER NURSING PROTOCOL Performed By: #### L 501.080 ####[facility] [address] [place], [place], [address] Discharge Instructionon Discharge Instruction Normal [facility] Electrocardiogram reportOrde red By: Marcelina Soto on 02-06-2025 EKG study [facility] Work Phone: [facility] deOrdered By: Lucio Borden on 02-06-2025 Glucose [Mass/Vol] 190 mg/dL High 74-106 [facility] Anion gap in Serum or Plasma Ordered By: Lucio Borden on 02-05-2025 Anion gap [Moles/Vol] 15 mmol/L 5-15 [facility] BUN/creatinine ratioOrdered By: Lucio Borden on 02-05-2025 Urea nitrogen/Creatinine [Mass ratio] 16.1 mg/mg 10-20 [facility] Basic Metabolic Profile (BMP )on 02-05-2025 BUN/CRE 16.1 RATIO Normal -20 [facility] Comment on above: Performed By: #### L 500.2500 ####[facility] [address] [place], [address] Calcium [Mass/Vol] 9.1 mg/dL Normal 7.6-11.0 [facility] Comment on above: Performed By: #### L 500.2500 ####[facility] [address] [place], [address] Chloride [Moles/Vol] 94 mmol/L Low 98-108 [facility] Comment on above: Performed By: #### L 500.2500 ####[facility] [address] [place], [address] CO2 [Moles/Vol] 26.4 mmol/L Normal 21.0-32.0 [facility] Comment on above: Performed By: #### L 500.2500 ####[facility] [address] [place], [address] Creatinine [Mass/Vol] 1.06 mg/dL Normal 0.70-1.20 [facility] Comment on above: Performed By: #### L 500.2500 ####[facility] [address] [place], [address] ECRCL 39.38 ml/min Low 50-250 [facility] Comment on above: Performed By: #### L 500.2500 ####[facility] [address] [place], [address] GAP 15 Normal 5-15 [facility] Comment on above: Performed By: #### L 500.2500 ####[facility] [address] [place], [address] GFR/1.73 sq M.predicted among non-blacks MDRD (S/P/Bld) [Vol rate/Area] 53 mL/min/{1.73_m2} Low >60 [facility] Comment on above: Result Comment: mL/m in/1.73m2 CKD-EPI Creatinine Equation (2020) Performed By: #### L 500.2500 ####[facility] [address] [place], [address] Glucose [Mass/Vol] 272 mg/dL High 70-99 [facility] Comment on above: Performed By: #### L 500.2500 ####[facility] [address] [place], [address] Potassium [Moles/Vol] 4.2 mmol/L Normal 3.3-5.1 [facility] Comment on above: Performed By: #### L 500.2500 ####[facility] [address] [place], [address] Sodium [Moles/Vol] 135 mmol/L Normal 133-145 [facility] Comment on above: Performed By: #### L 500.2500 ####[facility] [address] [place], [address] Urea nitrogen [Mass/Vol] 17 mg/dL Normal 4-19 [facility] Comment on above: Performed By: #### L 500.2500 ####[facility] [address] [place], [address] Bedside Glucoseon 02-05-2025 FINGERSTICK GLU 156 mg/dL High 74-106 [facility] Comment on above: Result Comment: KATARINA GEMENT OF PATIENT CARE PER NURSING PROTOCOL Performed By: #### L 501.080 ####[facility] [address] [place], [address] FINGERSTICK GLU 128 mg/dL High 74-106 [facility] Comment on above: Result Comment: KATARINA GEMENT OF PATIENT CARE PER NURSING PROTOCOL Performed By: #### L 501.080 ####[facility] [address] [place], [address] FINGERSTICK GLU 296 mg/dL High 74-106 [facility] Comment on above: Result Comment: KATARINA GEMENT OF PATIENT CARE PER NURSING PROTOCOL Performed By: #### L 501.080 ####[facility] [address] [place], [address] FINGERSTICK GLU 238 mg/dL High 74-106 [facility] Comment on above: Result Comment: KATARINA GEMENT OF PATIENT CARE PER NURSING PROTOCOL Performed By: #### L 501.080 ####[facility] [address] [place], [address] Carbon dioxide, total [Moles /volume] in Central venous bloodOrdered By: Lucio Borden on 02-05-2025 CO2 [Moles/Vol] 26.4 mmol/L 21.0-32.0 [facility] Chloride assayOrdered By: Chen Borden on 02-05-2025 Chloride [Moles/Vol] 94 mmol/L Low 98-108 [facility] Glomerular filtration rate ( GFR) estimation/1.73 sq m using serum, plasma, or whole bOrdered By: Lucio Borden on 02-05-2025 GFR/1.73 sq M.predicted among non-blacks MDRD (S/P/Bld) [Vol rate/Area] 53 mL/min/{1.73_m2} Low >60 [facility] Potassium measurement (mass/ volume)Ordered By: Lucio Borden on 02-05-2025 Potassium (Unsp spec) [Mass/Vol] 4.2 mmol/L 3.3-5.1 [facility] Serum creatinine measurement (mass/volume)Ordered By: Lucio Borden on 02-05-2025 Creatinine [Mass/Vol] 1.06 mg/dL 0.70-1.20 [facility] Serum glucose measurement (m ass/volume)Ordered By: Lucio Borden on 02-05-2025 Glucose [Mass/Vol] 272 mg/dL High 70-99 [facility] Serum or plasma calcium melanie urement (mass/volume)Ordered By: Lucio Borden on 02-05-2025 Calcium [Mass/Vol] 9.1 mg/dL 7.6-11.0 [facility] Serum or plasma urea nitroge n measurement (mass/volume)Ordered By: Lucio Borden on 02-05-2025 Urea nitrogen [Mass/Vol] 17 mg/dL 4-19 [facility] Sodium levelOrdered By: Lucio Borden on 02-05-2025 Sodium [Moles/Vol] 135 mmol/L 133-145 [facility] 12 Lead EKGon 02-04-2025 12 Lead EKG Normal [facility] Absolute lymphocyte countOrd ered By: Aj Holley on 02-04-2025 Lymphocytes Auto (Unsp spec) [#/Vol] 1.75 10*3/uL 0.83-4.51 [facility] Anion gap in Serum or Plasma Ordered By: Aj Holley on 02-04-2025 Anion gap [Moles/Vol] 16 mmol/L High 5-15 [facility] Automated lymphocyte count a s percentage of total leukocytesOrdered By: Aj Holley on 02-04-2025 Lymphocytes/100 WBC Auto (Unsp spec) 15.7 % Low 19-41 [facility] BUN/creatinine ratioOrdered By: Aj Holley on 02-04-2025 Urea nitrogen/Creatinine [Mass ratio] 13.2 mg/mg 10- [facility] Basic Metabolic Profile (BMP )on 02-04-2025 BUN/CRE 13.2 RATIO Normal -20 [facility] Comment on above: Performed By: #### L 500.2500, L100.0100 ####[facility] [address] [place], [address] Calcium [Mass/Vol] 8.9 mg/dL Normal 7.6-11.0 [facility] Comment on above: Performed By: #### L 500.2500, L100.0100 ####[facility] [address] [place], [address] Chloride [Moles/Vol] 95 mmol/L Low 98-108 [facility] Comment on above: Performed By: #### L 500.2500, L100.0100 ####[facility] [address] [place], [address] CO2 [Moles/Vol] 25.9 mmol/L Normal 21.0-32.0 [facility] Comment on above: Performed By: #### L 500.2500, L100.0100 ####[facility] [address] [place], [address] Creatinine [Mass/Vol] 1.14 mg/dL Normal 0.70-1.20 [facility] Comment on above: Performed By: #### L 500.2500, L100.0100 ####[facility] [address] [place], [address] ECRCL 37.95 ml/min Low 50-250 [facility] Comment on above: Performed By: #### L 500.2500, L100.0100 ####[facility] [address] [place], [address] GAP 16 High 5-15 [facility] Comment on above: Performed By: #### L 500.2500, L100.0100 ####[facility] [address] [place], [address] GFR/1.73 sq M.predicted among non-blacks MDRD (S/P/Bld) [Vol rate/Area] 48 mL/min/{1.73_m2} Low >60 [facility] Comment on above: Result Comment: mL/m in/1.73m2 CKD-EPI Creatinine Equation (2020) Performed By: #### L 500.2500, L100.0100 ####[facility] [address] [place], [address] Glucose [Mass/Vol] 132 mg/dL High 70-99 [facility] Comment on above: Performed By: #### L 500.2500, L100.0100 ####[facility] [address] [place], [address] Potassium [Moles/Vol] 3.9 mmol/L Normal 3.3-5.1 [facility] Comment on above: Result Comment: Hemo lysis present, Results??could be affected.?? Performed By: #### L 500.2500, L100.0100 ####[facility] [address] [place], [address] Sodium [Moles/Vol] 137 mmol/L Normal 133-145 [facility] Comment on above: Performed By: #### L 500.2500, L100.0100 ####[facility] [address] [place], [address] Urea nitrogen [Mass/Vol] 15 mg/dL Normal 4-19 [facility] Comment on above: Performed By: #### L 500.2500, L100.0100 ####[facility] [address] [place], [address] Basophil percentageOrdered B y: Aj Holley on 02-04-2025 Basophils/100 WBC (Bld) 0.2 % 0-[address] [facility] Bedside Glucoseon 02-04-2025 FINGERSTICK GLU 179 mg/dL High 74-106 [facility] Comment on above: Result Comment: KATARINA GEMENT OF PATIENT CARE PER NURSING PROTOCOL Performed By: #### L 501.080 ####[facility] [address] [place], [address] FINGERSTICK GLU 240 mg/dL High 74-106 [facility] Comment on above: Result Comment: KATARINA GEMENT OF PATIENT CARE PER NURSING PROTOCOL Performed By: #### L 501.080 ####[facility] [address] [place], [address] CBC W/Diff, Automatedon 06-0 Absolute Lymph 1.75 X10 3/uL Normal 0.83-4.51 [facility] Comment on above: Performed By: #### L 500.2500, L100.0100 ####[facility] [address] [place], [address] Absolute Neut 8.4 X10 3/uL High 2.0-7.7 [facility] Comment on above: Performed By: #### L 500.2500, L100.0100 ####[facility] [address] [place], [address] Basophils/100 WBC (Bld) 0.2 % Normal 0-[address] [facility] Comment on above: Performed By: #### L 500.2500, L100.0100 ####[facility] [address] [place], [address] Eosinophils/100 WBC (Bld) 1.7 % Normal 0-5 [facility] Comment on above: Performed By: #### L 500.2500, L100.0100 ####[facility] [address] [place], [address] Erythrocyte distribution width (RBC) [Ratio] 15.9 % High 11.6-14.6 [facility] Comment on above: Performed By: #### L 500.2500, L100.0100 ####[facility] [address] [place], [address] Hematocrit (Bld) [Volume fraction] 34.1 % Low 37-47 [facility] Comment on above: Performed By: #### L 500.2500, L100.0100 ####[facility] [address] [place], [address] Hemoglobin (Bld) [Mass/Vol] 10.7 g/dL Low 12.0-15.0 [facility] Comment on above: Performed By: #### L 500.2500, L100.0100 ####[facility] [address] [place], [address] IG% 0.400 Normal 0.0-0.9 [facility] Comment on above: Result Comment: IG% - Immature Granulocytes (promyelocytes, myelocytes andmetamyelocytes) > 1% indicates that a LEFT SHIFT is Present. Performed By: #### L 500.2500, L100.0100 ####[facility] [address] [place], [address] Lymphocytes/100 WBC (Bld) 15.7 % Low 19-41 [facility] Comment on above: Performed By: #### L 500.2500, L100.0100 ####[facility] [address] [place], [address] MCH (RBC) [Entitic mass] 27.9 pg Normal 27.0-32.0 [facility] Comment on above: Performed By: #### L 500.2500, L100.0100 ####[facility] [address] [place], [address] MCHC (RBC) [Mass/Vol] 31.4 g/dL Low 32-36 [facility] Comment on above: Performed By: #### L 500.2500, L100.0100 ####[facility] [address] [place], [address] MCV (RBC) [Entitic vol] 88.8 fL Normal 81-[address] [facility] Comment on above: Performed By: #### L 500.2500, L100.0100 ####[facility] [address] [place], [address] Monocytes/100 WBC (Bld) 6.6 % Normal 0-10 [facility] Comment on above: Performed By: #### L 500.2500, L100.0100 ####[facility] [address] [place], [address] Neutrophils/100 WBC (Bld) 75.4 % High 47-70 [facility] Comment on above: Performed By: #### L 500.2500, L100.0100 ####[facility] [address] [place], [address] Nucleated RBC (Bld) [#/Vol] 0 10*3/uL Normal 0-5 [facility] Comment on above: Performed By: #### L 500.2500, L100.0100 ####[facility] [address] [place], [address] Platelet mean volume (Bld) [Entitic vol] 11.3 fL Normal 6.2-12.0 [facility] Comment on above: Performed By: #### L 500.2500, L100.0100 ####[facility] [address] [place], [address] Platelets (Bld) [#/Vol] 185 10*3/uL Normal 150-450 [facility] Comment on above: Performed By: #### L 500.2500, L100.0100 ####[facility] [address] [place], [address] RBC (Bld) [#/Vol] 3.84 10*6/uL Low 4.2-5.4 [facility] Comment on above: Performed By: #### L 500.2500, L100.0100 ####[facility] [address] [place], [address] RDW SD 51.4 fl High 35.1-43.9 [facility] Comment on above: Performed By: #### L 500.2500, L100.0100 ####[facility] [address] [place], [address] WBC (Bld) [#/Vol] 11.2 10*3/uL High 4.4-11.0 [facility] Comment on above: Performed By: #### L 500.2500, L100.0100 ####[facility] [address] [place], [address] CTA Chest W/WO Contraston CTA Chest W/WO Contrast Normal [facility] Carbon dioxide, total [Moles /volume] in Central venous bloodOrdered By: Aj Holley on 02-04-2025 CO2 [Moles/Vol] 25.9 mmol/L 21.0-32.0 [facility] Chest PA and Lateralon 02-04 Chest PA and Lateral Normal [facility] Chloride assayOrdered By: Dahlia Holley on 02-04-2025 Chloride [Moles/Vol] 95 mmol/L Low 98-108 [facility] Emergency Department Summary on 02-04-2025 Emergency Department Summary Normal [facility] Eosinophil percentageOrdered By: Aj Holley on 02-04-2025 Eosinophils/100 WBC (Bld) 1.7 % 0-5 [facility] Erythrocyte distribution wid th ratioOrdered By: Aj Holley on 02-04-2025 Erythrocyte distribution width (RBC) [Ratio] 15.9 % High 11.6-14.6 [facility] Erythrocyte distribution wid th standard deviationOrdered By: Aj Holley on 02-04-2025 Erythrocyte distribution width (RBC) [Ratio] 51.4 fl High 35.1-43.9 [facility] Glomerular filtration rate ( GFR) estimation/1.73 sq m using serum, plasma, or whole bOrdered By: Aj Holley on 02-04-2025 GFR/1.73 sq M.predicted among non-blacks MDRD (S/P/Bld) [Vol rate/Area] 48 mL/min/{1.73_m2} Low >60 [facility] H AND P Exam - Hospitaliston 02-04-2025 H&P Exam - Hospitalist Normal [facility] Hematocrit Auto (Bld) [Volum e fraction]Ordered By: Aj Holley on 02-04-2025 Hematocrit (Bld) [Volume fraction] 34.1 % Low 37-47 [facility] Hemoglobin measurementOrdere d By: Aj Holley on 02-04-2025 Hemoglobin (Bld) [Mass/Vol] 10.7 g/dL Low 12.0-15.0 [facility] Immature granulocytes/100 WB C Auto (Bld)Ordered By: Aj Holley on 02-04-2025 Immature granulocytes/100 WBC (Bld) 0.400 % 0.0-0.9 [facility] L499.0042on 02-04-2025 Trop T High Sen 133 ng/L Invalid Interpretation Code <=14 [facility] Comment on above: Result Comment: Crit ical Result(s) Called at 0915: by: SHARONA EASLEY. ??Results read back by same. Performed By: #### L 499.0042 ####[facility] [address] [place], [address] L499.0043on 02-04-2025 Trop T High Sen 139 ng/L Invalid Interpretation Code <=14 [facility] Comment on above: Result Comment: Crit ical Result(s) Called at 1125: by: Michael SEGAL to [facility].??Results read back by same. Performed By: #### L 499.0043 ####[facility] [address] [place], [address] L501.4021on 02-04-2025 Trop T High Sen 139 ng/L Invalid Interpretation Code <=14 [facility] Comment on above: Result Comment: Crit ical Result(s) Called at 0809: by: SHARONA GO.??Results read back by same. Performed By: #### L 501.4021, L503.7505 ####[facility] [address] [place], [address] L503.7505on 02-04-2025 Natriuretic peptide B (Bld) [Mass/Vol] 6247 pg/mL High <=1800 [facility] Comment on above: Result Comment: Hear t Failure Unlikely: < 300 pg/mLHeart Failure Likely< 50 Years: > 450 pg/mL50-75 Years: > 900 pg/mL>75 Years: > 1800 pg/mL Performed By: #### L 501.4021, L503.7505 ####[facility] [address] [place], [address] MCV (mean corpuscular volume ) determinationOrdered By: Aj Holley on 02-04-2025 MCV (RBC) [Entitic vol] 88.8 fL 81-[address] [facility] Mean corpuscular hemoglobin (MCH) determinationOrdered By: Aj Holley on 02-04-2025 MCH (RBC) [Entitic mass] 27.9 pg 27.0-32.0 [facility] Monocyte percentageOrdered B y: Aj Holley on 02-04-2025 Monocytes/100 WBC (Bld) 6.6 % 0-[address] [facility] Natriuretic peptide.B prohor hayley N-Terminal [Mass/volume] in Serum or PlasmaOrdered By: Aj Holley on 02-04-2025 Natriuretic peptide.B prohormone N-Terminal [Mass/Vol] 6247 pg/mL High <1800 [facility] Neutrophil percentageOrdered By: Aj Holley on 02-04-2025 Neutrophils/100 WBC (Bld) 75.4 % High 47-70 [facility] Platelet countOrdered By: Dahlia Holley on 02-04-2025 Platelets (Bld) [#/Vol] 185 10*3/uL 150-450 [facility] Potassium measurement (mass/ volume)Ordered By: Aj Holley on 02-04-2025 Potassium (Unsp spec) [Mass/Vol] 3.9 mmol/L 3.3-5.1 [facility] RBC Auto (Bld) [#/Vol]Ordere d By: Aj Holley on 02-04-2025 RBC (Bld) [#/Vol] 3.84 10*6/uL Low 4.2-5.4 [facility] Serum creatinine measurement (mass/volume)Ordered By: Aj Holley on 02-04-2025 Creatinine [Mass/Vol] 1.14 mg/dL 0.70-1.20 [facility] Serum glucose measurement (m ass/volume)Ordered By: Aj Holley on 02-04-2025 Glucose [Mass/Vol] 132 mg/dL High 70-99 [facility] Serum or plasma calcium melanie urement (mass/volume)Ordered By: Aj Holley on 02-04-2025 Calcium [Mass/Vol] 8.9 mg/dL 7.6-11.0 [facility] Serum or plasma urea nitroge n measurement (mass/volume)Ordered By: Aj Holley on 02-04-2025 Urea nitrogen [Mass/Vol] 15 mg/dL 4-19 [facility] Sodium levelOrdered By: Reynaldo Holley on 02-04-2025 Sodium [Moles/Vol] 137 mmol/L 133-145 [facility] Troponin T.cardiac [Mass/vol ume] in Serum or Plasma by High sensitivity methodOrdered By: Aj Holley on 02-04-2025 Troponin T.cardiac High sensitivity method [Mass/Vol] 139 ng/L High <14 [facility] Troponin T.cardiac High sensitivity method [Mass/Vol] 133 ng/L High <14 [facility] Troponin T.cardiac High sensitivity method [Mass/Vol] 139 ng/L High <14 [facility] White blood cell (WBC) count Ordered By: Aj Holley on 02-04-2025 WBC (Bld) [#/Vol] 11.2 10*3/uL High 4.4-11.0 [facility] Cardiology Visit Reporton Cardiology Visit Report Normal [facility] Basic Metabolic Profile (BMP )on 01-30-2025 BUN Normal 4-19 [facility] Comment on above: Result Comment: Canc elled via OM: Order cancelled - Patient discharged Performed By: #### L 500.2500, L100.0100 ####[facility] [address] [place], [address] BUN/CRE Normal 10-20 [facility] Comment on above: Result Comment: Canc elled via OM: Order cancelled - Patient discharged Performed By: #### L 500.2500, L100.0100 ####[facility] [address] [place], [address] Calcium Normal 7.6-11.0 [facility] Comment on above: Result Comment: Canc elled via OM: Order cancelled - Patient discharged Performed By: #### L 500.2500, L100.0100 ####[facility] [address] [place], [address] CL Normal 98-108 [facility] Comment on above: Result Comment: Canc elled via OM: Order cancelled - Patient discharged Performed By: #### L 500.2500, L100.0100 ####[facility] [address] [place], [address] CO2 Normal 21.0-32.0 [facility] Comment on above: Result Comment: Canc elled via OM: Order cancelled - Patient discharged Performed By: #### L 500.2500, L100.0100 ####[facility] [address] [place], [address] CREAT,SERUM Normal 0.70-1.20 [facility] Comment on above: Result Comment: Canc elled via OM: Order cancelled - Patient discharged Performed By: #### L 500.2500, L100.0100 ####[facility] [address] [place], [address] eGFR Normal >60 [facility] Comment on above: Result Comment: Canc elled via OM: Order cancelled - Patient discharged Performed By: #### L 500.2500, L100.0100 ####[facility] [address] [place], [address] GAP Normal 5-15 [facility] Comment on above: Result Comment: Canc elled via OM: Order cancelled - Patient discharged Performed By: #### L 500.2500, L100.0100 ####[facility] [address] [place], [address] GLU Normal 70-99 [facility] Comment on above: Result Comment: Canc elled via OM: Order cancelled - Patient discharged Performed By: #### L 500.2500, L100.0100 ####[facility] [address] [place], [address] Potassium Normal 3.3-5.1 [facility] Comment on above: Result Comment: Canc elled via OM: Order cancelled - Patient discharged Performed By: #### L 500.2500, L100.0100 ####[facility] [address] [place], [address] Basic Metabolic Profile (BMP) Normal 133-145 [facility] Comment on above: Result Comment: Canc elled via OM: Order cancelled - Patient discharged Performed By: #### L 500.2500, L100.0100 ####[facility] [address] [place], [address] CBC W/Diff, Automatedon 06-0 2-2024 Absolute Neut Normal 2.0-7.7 [facility] Comment on above: Result Comment: Canc elled via OM: Order cancelled - Patient discharged Performed By: #### L 500.2500, L100.0100 ####[facility] [address] [place], [address] HCT Normal 37-47 [facility] Comment on above: Result Comment: Canc elled via OM: Order cancelled - Patient discharged Performed By: #### L 500.2500, L100.0100 ####[facility] [address] [place], [address] HGB Normal 12.0-15.0 [facility] Comment on above: Result Comment: Canc elled via OM: Order cancelled - Patient discharged Performed By: #### L 500.2500, L100.0100 ####[facility] [address] [place], [address] MCH Normal 27.0-32.0 [facility] Comment on above: Result Comment: Canc elled via OM: Order cancelled - Patient discharged Performed By: #### L 500.2500, L100.0100 ####[facility] [address] [place], [address] MCHC Normal 32-36 [facility] Comment on above: Result Comment: Canc elled via OM: Order cancelled - Patient discharged Performed By: #### L 500.2500, L100.0100 ####[facility] [address] [place], [address] MCV Normal 81-99 [facility] Comment on above: Result Comment: Canc elled via OM: Order cancelled - Patient discharged Performed By: #### L 500.2500, L100.0100 ####[facility] [address] [place], [address] NEUT% Normal 47-70 [facility] Comment on above: Result Comment: Canc elled via OM: Order cancelled - Patient discharged Performed By: #### L 500.2500, L100.0100 ####[facility] [address] [place], [address] PLT Normal 150-450 [facility] Comment on above: Result Comment: Canc elled via OM: Order cancelled - Patient discharged Performed By: #### L 500.2500, L100.0100 ####[facility] [address] [place], [address] RBC Normal 4.2-5.4 [facility] Comment on above: Result Comment: Canc elled via OM: Order cancelled - Patient discharged Performed By: #### L 500.2500, L100.0100 ####[facility] [address] [place], [address] RDW CV Normal 11.6-14.6 [facility] Comment on above: Result Comment: Canc elled via OM: Order cancelled - Patient discharged Performed By: #### L 500.2500, L100.0100 ####[facility] [address] [place], [address] RDW SD Normal 35.1-43.9 [facility] Comment on above: Result Comment: Canc elled via OM: Order cancelled - Patient discharged Performed By: #### L 500.2500, L100.0100 ####[facility] [address] [place], [address] WBC Normal 4.4-11.0 [facility] Comment on above: Result Comment: Canc elled via OM: Order cancelled - Patient discharged Performed By: #### L 500.2500, L100.0100 ####[facility] [address] [place], [address] Basic Metabolic Profile (BMP )on 01-29-2025 BUN Normal 4-19 [facility] Comment on above: Result Comment: Canc elled via OM: Order cancelled - Patient discharged Performed By: #### L 100.0100, L500.2500 ####[facility] [address] [place], [address] BUN/CRE Normal 10-20 [facility] Comment on above: Result Comment: Canc elled via OM: Order cancelled - Patient discharged Performed By: #### L 100.0100, L500.2500 ####[facility] [address] [place], [address] Calcium Normal 7.6-11.0 [facility] Comment on above: Result Comment: Canc elled via OM: Order cancelled - Patient discharged Performed By: #### L 100.0100, L500.2500 ####[facility] [address] [place], [address] CL Normal 98-108 [facility] Comment on above: Result Comment: Canc elled via OM: Order cancelled - Patient discharged Performed By: #### L 100.0100, L500.2500 ####[facility] [address] [place], [address] CO2 Normal 21.0-32.0 [facility] Comment on above: Result Comment: Canc elled via OM: Order cancelled - Patient discharged Performed By: #### L 100.0100, L500.2500 ####[facility] [address] [place], [address] CREAT,SERUM Normal 0.70-1.20 [facility] Comment on above: Result Comment: Canc elled via OM: Order cancelled - Patient discharged Performed By: #### L 100.0100, L500.2500 ####[facility] [address] [place], [address] eGFR Normal >60 [facility] Comment on above: Result Comment: Canc elled via OM: Order cancelled - Patient discharged Performed By: #### L 100.0100, L500.2500 ####[facility] [address] [place], [address] GAP Normal 5-15 [facility] Comment on above: Result Comment: Canc elled via OM: Order cancelled - Patient discharged Performed By: #### L 100.0100, L500.2500 ####[facility] [address] [place], [address] GLU Normal 70-99 [facility] Comment on above: Result Comment: Canc elled via OM: Order cancelled - Patient discharged Performed By: #### L 100.0100, L500.2500 ####[facility] [address] [place], [address] Potassium Normal 3.3-5.1 [facility] Comment on above: Result Comment: Canc elled via OM: Order cancelled - Patient discharged Performed By: #### L 100.0100, L500.2500 ####[facility] [address] [place], [address] Basic Metabolic Profile (BMP) Normal 133-145 [facility] Comment on above: Result Comment: Canc elled via OM: Order cancelled - Patient discharged Performed By: #### L 100.0100, L500.2500 ####[facility] [address] [place], [address] CBC W/Diff, Automatedon 06-0 -2024 Absolute Neut Normal 2.0-7.7 [facility] Comment on above: Result Comment: Canc elled via OM: Order cancelled - Patient discharged Performed By: #### L 100.0100, L500.2500 ####[facility] [address] [place], [address] HCT Normal 37-47 [facility] Comment on above: Result Comment: Canc elled via OM: Order cancelled - Patient discharged Performed By: #### L 100.0100, L500.2500 ####[facility] [address] [place], [address] HGB Normal 12.0-15.0 [facility] Comment on above: Result Comment: Canc elled via OM: Order cancelled - Patient discharged Performed By: #### L 100.0100, L500.2500 ####[facility] [address] [place], [address] MCH Normal 27.0-32.0 [facility] Comment on above: Result Comment: Canc elled via OM: Order cancelled - Patient discharged Performed By: #### L 100.0100, L500.2500 ####[facility] [address] [place], [address] MCHC Normal 32-36 [facility] Comment on above: Result Comment: Canc elled via OM: Order cancelled - Patient discharged Performed By: #### L 100.0100, L500.2500 ####[facility] [address] [place], [address] MCV Normal 81-99 [facility] Comment on above: Result Comment: Canc elled via OM: Order cancelled - Patient discharged Performed By: #### L 100.0100, L500.2500 ####[facility] [address] [place], [address] NEUT% Normal 47-70 [facility] Comment on above: Result Comment: Canc elled via OM: Order cancelled - Patient discharged Performed By: #### L 100.0100, L500.2500 ####[facility] [address] [place], [address] PLT Normal 150-450 [facility] Comment on above: Result Comment: Canc elled via OM: Order cancelled - Patient discharged Performed By: #### L 100.0100, L500.2500 ####[facility] [address] [place], [address] RBC Normal 4.2-5.4 [facility] Comment on above: Result Comment: Canc elled via OM: Order cancelled - Patient discharged Performed By: #### L 100.0100, L500.2500 ####[facility] [address] [place], [address] RDW CV Normal 11.6-14.6 [facility] Comment on above: Result Comment: Canc elled via OM: Order cancelled - Patient discharged Performed By: #### L 100.0100, L500.2500 ####[facility] [address] [place], [address] RDW SD Normal 35.1-43.9 [facility] Comment on above: Result Comment: Canc elled via OM: Order cancelled - Patient discharged Performed By: #### L 100.0100, L500.2500 ####[facility] [address] [place], [address] WBC Normal 4.4-11.0 [facility] Comment on above: Result Comment: Canc elled via OM: Order cancelled - Patient discharged Performed By: #### L 100.0100, L500.2500 ####[facility] [address] [place], [address] Basic Metabolic Profile (BMP )on 01-28-2025 BUN Normal 4-19 [facility] Comment on above: Result Comment: Canc elled via OM: Order cancelled - Patient discharged Performed By: #### L 500.2500, L100.0100 ####[facility] [address] [place], [address] BUN/CRE Normal 10-20 [facility] Comment on above: Result Comment: Canc elled via OM: Order cancelled - Patient discharged Performed By: #### L 500.2500, L100.0100 ####[facility] [address] [place], [address] Calcium Normal 7.6-11.0 [facility] Comment on above: Result Comment: Canc elled via OM: Order cancelled - Patient discharged Performed By: #### L 500.2500, L100.0100 ####[facility] [address] [place], [address] CL Normal 98-108 [facility] Comment on above: Result Comment: Canc elled via OM: Order cancelled - Patient discharged Performed By: #### L 500.2500, L100.0100 ####[facility] [address] [place], [address] CO2 Normal 21.0-32.0 [facility] Comment on above: Result Comment: Canc elled via OM: Order cancelled - Patient discharged Performed By: #### L 500.2500, L100.0100 ####[facility] [address] [place], [address] CREAT,SERUM Normal 0.70-1.20 [facility] Comment on above: Result Comment: Canc elled via OM: Order cancelled - Patient discharged Performed By: #### L 500.2500, L100.0100 ####[facility] [address] [place], [address] eGFR Normal >60 [facility] Comment on above: Result Comment: Canc elled via OM: Order cancelled - Patient discharged Performed By: #### L 500.2500, L100.0100 ####[facility] [address] [place], [address] GAP Normal 5-15 [facility] Comment on above: Result Comment: Canc elled via OM: Order cancelled - Patient discharged Performed By: #### L 500.2500, L100.0100 ####[facility] [address] [place], [address] GLU Normal 70-99 [facility] Comment on above: Result Comment: Canc elled via OM: Order cancelled - Patient discharged Performed By: #### L 500.2500, L100.0100 ####[facility] [address] [place], [address] Potassium Normal 3.3-5.1 [facility] Comment on above: Result Comment: Canc elled via OM: Order cancelled - Patient discharged Performed By: #### L 500.2500, L100.0100 ####[facility] [address] [place], [address] Basic Metabolic Profile (BMP) Normal 133-145 [facility] Comment on above: Result Comment: Canc elled via OM: Order cancelled - Patient discharged Performed By: #### L 500.2500, L100.0100 ####[facility] [address] [place], [address] CBC W/Diff, Automatedon 05-3 Absolute Neut Normal 2.0-7.7 [facility] Comment on above: Result Comment: Canc elled via OM: Order cancelled - Patient discharged Performed By: #### L 500.2500, L100.0100 ####[facility] [address] [place], [address] HCT Normal 37-47 [facility] Comment on above: Result Comment: Canc elled via OM: Order cancelled - Patient discharged Performed By: #### L 500.2500, L100.0100 ####[facility] [address] [place], [address] HGB Normal 12.0-15.0 [facility] Comment on above: Result Comment: Canc elled via OM: Order cancelled - Patient discharged Performed By: #### L 500.2500, L100.0100 ####[facility] [address] [place], [address] MCH Normal 27.0-32.0 [facility] Comment on above: Result Comment: Canc elled via OM: Order cancelled - Patient discharged Performed By: #### L 500.2500, L100.0100 ####[facility] [address] [place], [address] MCHC Normal 32-36 [facility] Comment on above: Result Comment: Canc elled via OM: Order cancelled - Patient discharged Performed By: #### L 500.2500, L100.0100 ####[facility] [address] [place], [address] MCV Normal 81-99 [facility] Comment on above: Result Comment: Canc elled via OM: Order cancelled - Patient discharged Performed By: #### L 500.2500, L100.0100 ####[facility] [address] [place], [address] NEUT% Normal 47-70 [facility] Comment on above: Result Comment: Canc elled via OM: Order cancelled - Patient discharged Performed By: #### L 500.2500, L100.0100 ####[facility] [address] [place], [address] PLT Normal 150-450 [facility] Comment on above: Result Comment: Canc elled via OM: Order cancelled - Patient discharged Performed By: #### L 500.2500, L100.0100 ####[facility] [address] [place], [address] RBC Normal 4.2-5.4 [facility] Comment on above: Result Comment: Canc elled via OM: Order cancelled - Patient discharged Performed By: #### L 500.2500, L100.0100 ####[facility] [address] [place], [address] RDW CV Normal 11.6-14.6 [facility] Comment on above: Result Comment: Canc elled via OM: Order cancelled - Patient discharged Performed By: #### L 500.2500, L100.0100 ####[facility] [address] [place], [address] RDW SD Normal 35.1-43.9 [facility] Comment on above: Result Comment: Canc elled via OM: Order cancelled - Patient discharged Performed By: #### L 500.2500, L100.0100 ####[facility] [address] [place], [address] WBC Normal 4.4-11.0 [facility] Comment on above: Result Comment: Canc elled via OM: Order cancelled - Patient discharged Performed By: #### L 500.2500, L100.0100 ####[facility] [address] [place], [address] Basic Metabolic Profile (BMP )on 01-27-2025 BUN Normal 4-19 [facility] Comment on above: Result Comment: Canc elled via OM: Order cancelled - Patient discharged Performed By: #### L 500.2500, L100.0100 ####[facility] [address] [place], [address] BUN/CRE Normal 10-20 [facility] Comment on above: Result Comment: Canc elled via OM: Order cancelled - Patient discharged Performed By: #### L 500.2500, L100.0100 ####[facility] [address] [place], [address] Calcium Normal 7.6-11.0 [facility] Comment on above: Result Comment: Canc elled via OM: Order cancelled - Patient discharged Performed By: #### L 500.2500, L100.0100 ####[facility] [address] [place], [address] CL Normal 98-108 [facility] Comment on above: Result Comment: Canc elled via OM: Order cancelled - Patient discharged Performed By: #### L 500.2500, L100.0100 ####[facility] [address] [place], [address] CO2 Normal 21.0-32.0 [facility] Comment on above: Result Comment: Canc elled via OM: Order cancelled - Patient discharged Performed By: #### L 500.2500, L100.0100 ####[facility] [address] [place], [address] CREAT,SERUM Normal 0.70-1.20 [facility] Comment on above: Result Comment: Canc elled via OM: Order cancelled - Patient discharged Performed By: #### L 500.2500, L100.0100 ####[facility] [address] [place], [address] eGFR Normal >60 [facility] Comment on above: Result Comment: Canc elled via OM: Order cancelled - Patient discharged Performed By: #### L 500.2500, L100.0100 ####[facility] [address] [place], [address] GAP Normal 5-15 [facility] Comment on above: Result Comment: Canc elled via OM: Order cancelled - Patient discharged Performed By: #### L 500.2500, L100.0100 ####[facility] [address] [place], [address] GLU Normal 70-99 [facility] Comment on above: Result Comment: Canc elled via OM: Order cancelled - Patient discharged Performed By: #### L 500.2500, L100.0100 ####[facility] [address] [place], [address] Potassium Normal 3.3-5.1 [facility] Comment on above: Result Comment: Canc elled via OM: Order cancelled - Patient discharged Performed By: #### L 500.2500, L100.0100 ####[facility] [facility] [address] [place], [address] Basic Metabolic Profile (BMP) Normal 133-145 [facility] Comment on above: Result Comment: Canc elled via OM: Order cancelled - Patient discharged Performed By: #### L 500.2500, L100.0100 ####[facility] [address] [place], [address] CBC W/Diff, Automatedon 05-3 0-2024 Absolute Neut Normal 2.0-7.7 [facility] Comment on above: Result Comment: Canc elled via OM: Order cancelled - Patient discharged Performed By: #### L 500.2500, L100.0100 ####[facility] [address] [place], [address] HCT Normal 37-47 [facility] Comment on above: Result Comment: Canc elled via OM: Order cancelled - Patient discharged Performed By: #### L 500.2500, L100.0100 ####[facility] [address] [place], [address] HGB Normal 12.0-15.0 [facility] Comment on above: Result Comment: Canc elled via OM: Order cancelled - Patient discharged Performed By: #### L 500.2500, L100.0100 ####[facility] [address] [place], [address] MCH Normal 27.0-32.0 [facility] Comment on above: Result Comment: Canc elled via OM: Order cancelled - Patient discharged Performed By: #### L 500.2500, L100.0100 ####[facility] [address] [place], [address] MCHC Normal 32-36 [facility] Comment on above: Result Comment: Canc elled via OM: Order cancelled - Patient discharged Performed By: #### L 500.2500, L100.0100 ####[facility] [address] [place], [address] MCV Normal 81-99 [facility] Comment on above: Result Comment: Canc elled via OM: Order cancelled - Patient discharged Performed By: #### L 500.2500, L100.0100 ####[facility] [address] [place], [address] NEUT% Normal 47-70 [facility] Comment on above: Result Comment: Canc elled via OM: Order cancelled - Patient discharged Performed By: #### L 500.2500, L100.0100 ####[facility] [address] [place], [address] PLT Normal 150-450 [facility] Comment on above: Result Comment: Canc elled via OM: Order cancelled - Patient discharged Performed By: #### L 500.2500, L100.0100 ####[facility] [address] [place], [address] RBC Normal 4.2-5.4 [facility] Comment on above: Result Comment: Canc elled via OM: Order cancelled - Patient discharged Performed By: #### L 500.2500, L100.0100 ####[facility] [address] [place], [address] RDW CV Normal 11.6-14.6 [facility] Comment on above: Result Comment: Canc elled via OM: Order cancelled - Patient discharged Performed By: #### L 500.2500, L100.0100 ####[facility] [address] [place], [address] RDW SD Normal 35.1-43.9 [facility] Comment on above: Result Comment: Canc elled via OM: Order cancelled - Patient discharged Performed By: #### L 500.2500, L100.0100 ####[facility] [address] [place], [address] WBC Normal 4.4-11.0 [facility] Comment on above: Result Comment: Canc elled via OM: Order cancelled - Patient discharged Performed By: #### L 500.2500, L100.0100 ####[facility] [address] [place], [address] Absolute lymphocyte countOrd ered By: Jg Bryan on 01-26-2025 Lymphocytes Auto (Unsp spec) [#/Vol] 2.24 10*3/uL 0.83-4.51 [facility] Anion gap in Serum or Plasma Ordered By: Jg Bryan on 01-26-2025 Anion gap [Moles/Vol] 10 mmol/L 5-15 [facility] Automated lymphocyte count a s percentage of total leukocytesOrdered By: Jg Bryan on 01-26-2025 Lymphocytes/100 WBC Auto (Unsp spec) 25.1 % 19-41 [facility] BUN/creatinine ratioOrdered By: Jg Bryan on 01-26-2025 Urea nitrogen/Creatinine [Mass ratio] 30.2 mg/mg High 10-20 [facility] Basic Metabolic Profile (BMP )on 01-26-2025 BUN Normal 4-19 [facility] Comment on above: Result Comment: Canc elled via OM: Order cancelled - Patient discharged Performed By: #### L 500.2500, L100.0100 ####[facility] [address] [place], [address] BUN/CRE Normal 10-20 [facility] Comment on above: Result Comment: Canc elled via OM: Order cancelled - Patient discharged Performed By: #### L 500.2500, L100.0100 ####[facility] [address] [place], [address] Calcium Normal 7.6-11.0 [facility] Comment on above: Result Comment: Canc elled via OM: Order cancelled - Patient discharged Performed By: #### L 500.2500, L100.0100 ####[facility] [address] [place], [address] CL Normal 98-108 [facility] Comment on above: Result Comment: Canc elled via OM: Order cancelled - Patient discharged Performed By: #### L 500.2500, L100.0100 ####[facility] [address] [place], [address] CO2 Normal 21.0-32.0 [facility] Comment on above: Result Comment: Canc elled via OM: Order cancelled - Patient discharged Performed By: #### L 500.2500, L100.0100 ####[facility] [address] [place], [address] CREAT,SERUM Normal 0.70-1.20 [facility] Comment on above: Result Comment: Canc elled via OM: Order cancelled - Patient discharged Performed By: #### L 500.2500, L100.0100 ####[facility] [address] [place], [address] eGFR Normal >60 [facility] Comment on above: Result Comment: Canc elled via OM: Order cancelled - Patient discharged Performed By: #### L 500.2500, L100.0100 ####[facility] [address] [place], [address] GAP Normal 5-15 [facility] Comment on above: Result Comment: Canc elled via OM: Order cancelled - Patient discharged Performed By: #### L 500.2500, L100.0100 ####[facility] [address] [place], [address] GLU Normal 70-99 [facility] Comment on above: Result Comment: Canc elled via OM: Order cancelled - Patient discharged Performed By: #### L 500.2500, L100.0100 ####[facility] [address] [place], [address] Potassium Normal 3.3-5.1 [facility] Comment on above: Result Comment: Canc elled via OM: Order cancelled - Patient discharged Performed By: #### L 500.2500, L100.0100 ####[facility] [address] [place], [address] Basic Metabolic Profile (BMP) Normal 133-145 [facility] Comment on above: Result Comment: Canc elled via OM: Order cancelled - Patient discharged Performed By: #### L 500.2500, L100.0100 ####[facility] [address] [place], [address] BUN/CRE 30.2 RATIO High 10-20 [facility] Comment on above: Performed By: #### L 501.5200, L503.7505, L500.2500, L100.0100 ####[facility] [address] [place], [address] Calcium [Mass/Vol] 10.2 mg/dL Normal 7.6-11.0 [facility] Comment on above: Performed By: #### L 501.5200, L503.7505, L500.2500, L100.0100 ####[facility] [address] [place], [address] Chloride [Moles/Vol] 104 mmol/L Normal 98-108 [facility] Comment on above: Performed By: #### L 501.5200, L503.7505, L500.2500, L100.0100 ####[facility] [address] [place], [address] CO2 [Moles/Vol] 27.1 mmol/L Normal 21.0-32.0 [facility] Comment on above: Performed By: #### L 501.5200, L503.7505, L500.2500, L100.0100 ####[facility] [address] [place], [address] Creatinine [Mass/Vol] 1.16 mg/dL Normal 0.70-1.20 [facility] Comment on above: Performed By: #### L 501.5200, L503.7505, L500.2500, L100.0100 ####[facility] [address] [place], [address] ECRCL 38.24 ml/min Low 50-250 [facility] Comment on above: Performed By: #### L 501.5200, L503.7505, L500.2500, L100.0100 ####[facility] [address] [place], [address] GAP 10 Normal 5-15 [facility] Comment on above: Performed By: #### L 501.5200, L503.7505, L500.2500, L100.0100 ####[facility] [address] [place], [address] GFR/1.73 sq M.predicted among non-blacks MDRD (S/P/Bld) [Vol rate/Area] 47 mL/min/{1.73_m2} Low >60 [facility] Comment on above: Result Comment: mL/m in/1.73m2 CKD-EPI Creatinine Equation (2020) Performed By: #### L 501.5200, L503.7505, L500.2500, L100.0100 ####[facility] [address] [place], [address] Glucose [Mass/Vol] 211 mg/dL High 70-99 [facility] Comment on above: Performed By: #### L 501.5200, L503.7505, L500.2500, L100.0100 ####[facility] [address] [place], [address] Potassium [Moles/Vol] 4.1 mmol/L Normal 3.3-5.1 [facility] Comment on above: Performed By: #### L 501.5200, L503.7505, L500.2500, L100.0100 ####[facility] [address] [place], [address] Sodium [Moles/Vol] 141 mmol/L Normal 133-145 [facility] Comment on above: Performed By: #### L 501.5200, L503.7505, L500.2500, L100.0100 ####[facility] [address] [place], [address] Urea nitrogen [Mass/Vol] 35 mg/dL High 4-19 [facility] Comment on above: Performed By: #### L 501.5200, L503.7505, L500.2500, L100.0100 ####[facility] [address] [place], [address] Basophil percentageOrdered B y: Jg Bryan on 01-26-2025 Basophils/100 WBC (Bld) 0.1 % 0-[address] [facility] CBC W/Diff, Automatedon 12-30 Absolute Neut Normal 2.0-7.7 [facility] Comment on above: Result Comment: Canc elled via OM: Order cancelled - Patient discharged Performed By: #### L 500.2500, L100.0100 ####[facility] [address] [place], [address] HCT Normal 37-47 [facility] Comment on above: Result Comment: Canc elled via OM: Order cancelled - Patient discharged Performed By: #### L 500.2500, L100.0100 ####[facility] [address] [place], [address] HGB Normal 12.0-15.0 [facility] Comment on above: Result Comment: Canc elled via OM: Order cancelled - Patient discharged Performed By: #### L 500.2500, L100.0100 ####[facility] [address] [place], [address] MCH Normal 27.0-32.0 [facility] Comment on above: Result Comment: Canc elled via OM: Order cancelled - Patient discharged Performed By: #### L 500.2500, L100.0100 ####[facility] [address] [place], [address] MCHC Normal 32-36 [facility] Comment on above: Result Comment: Canc elled via OM: Order cancelled - Patient discharged Performed By: #### L 500.2500, L100.0100 ####[facility] [address] [place], [address] MCV Normal 81-99 [facility] Comment on above: Result Comment: Canc elled via OM: Order cancelled - Patient discharged Performed By: #### L 500.2500, L100.0100 ####[facility] [address] [place], [address] NEUT% Normal 47-70 [facility] Comment on above: Result Comment: Canc elled via OM: Order cancelled - Patient discharged Performed By: #### L 500.2500, L100.0100 ####[facility] [address] [place], [address] PLT Normal 150-450 [facility] Comment on above: Result Comment: Canc elled via OM: Order cancelled - Patient discharged Performed By: #### L 500.2500, L100.0100 ####[facility] [address] [place], [address] RBC Normal 4.2-5.4 [facility] Comment on above: Result Comment: Canc elled via OM: Order cancelled - Patient discharged Performed By: #### L 500.2500, L100.0100 ####[facility] [address] [place], [address] RDW CV Normal 11.6-14.6 [facility] Comment on above: Result Comment: Canc elled via OM: Order cancelled - Patient discharged Performed By: #### L 500.2500, L100.0100 ####[facility] [address] [place], [address] RDW SD Normal 35.1-43.9 [facility] Comment on above: Result Comment: Canc elled via OM: Order cancelled - Patient discharged Performed By: #### L 500.2500, L100.0100 ####[facility] [address] [place], [address] WBC Normal 4.4-11.0 [facility] Comment on above: Result Comment: Canc elled via OM: Order cancelled - Patient discharged Performed By: #### L 500.2500, L100.0100 ####[facility] [address] [place], [address] Absolute Lymph 2.24 X10 3/uL Normal 0.83-4.51 [facility] Comment on above: Performed By: #### L 501.5200, L503.7505, L500.2500, L100.0100 ####[facility] [address] [place], [address] Absolute Neut 5.8 X10 3/uL Normal 2.0-7.7 [facility] Comment on above: Performed By: #### L 501.5200, L503.7505, L500.2500, L100.0100 ####[facility] [address] [place], [address] Basophils/100 WBC (Bld) 0.1 % Normal 0-[address] [facility] Comment on above: Performed By: #### L 501.5200, L503.7505, L500.2500, L100.0100 ####[facility] [address] [place], [address] Eosinophils/100 WBC (Bld) 2.8 % Normal 0-5 [facility] Comment on above: Performed By: #### L 501.5200, L503.7505, L500.2500, L100.0100 ####[facility] [address] [place], [address] Erythrocyte distribution width (RBC) [Ratio] 15.9 % High 11.6-14.6 [facility] Comment on above: Performed By: #### L 501.5200, L503.7505, L500.2500, L100.0100 ####[facility] [address] [place], [address] Hematocrit (Bld) [Volume fraction] 37.9 % Normal 37-47 [facility] Comment on above: Performed By: #### L 501.5200, L503.7505, L500.2500, L100.0100 ####[facility] [address] [place], [address] Hemoglobin (Bld) [Mass/Vol] 11.8 g/dL Low 12.0-15.0 [facility] Comment on above: Performed By: #### L 501.5200, L503.7505, L500.2500, L100.0100 ####[facility] [address] [place], [address] IG% 0.300 Normal 0.0-0.9 [facility] Comment on above: Result Comment: IG% - Immature Granulocytes (promyelocytes, myelocytes andmetamyelocytes) > 1% indicates that a LEFT SHIFT is Present. Performed By: #### L 501.5200, L503.7505, L500.2500, L100.0100 ####[facility] [address] [place], [address] Lymphocytes/100 WBC (Bld) 25.1 % Normal 19-41 [facility] Comment on above: Performed By: #### L 501.5200, L503.7505, L500.2500, L100.0100 ####[facility] [address] [place], [address] MCH (RBC) [Entitic mass] 27.3 pg Normal 27.0-32.0 [facility] Comment on above: Performed By: #### L 501.5200, L503.7505, L500.2500, L100.0100 ####[facility] [address] [place], [address] MCHC (RBC) [Mass/Vol] 31.1 g/dL Low 32-36 [facility] Comment on above: Performed By: #### L 501.5200, L503.7505, L500.2500, L100.0100 ####[facility] [address] [place], [address] MCV (RBC) [Entitic vol] 87.5 fL Normal 81-99 [facility] Comment on above: Performed By: #### L 501.5200, L503.7505, L500.2500, L100.0100 ####[facility] [address] [place], [address] Monocytes/100 WBC (Bld) 6.7 % Normal 0-[address] [facility] Comment on above: Performed By: #### L 501.5200, L503.7505, L500.2500, L100.0100 ####[facility] [address] [place], [address] Neutrophils/100 WBC (Bld) 65.0 % Normal 47-70 [facility] Comment on above: Performed By: #### L 501.5200, L503.7505, L500.2500, L100.0100 ####[facility] [address] [place], [address] Nucleated RBC (Bld) [#/Vol] 0 10*3/uL Normal 0-5 [facility] Comment on above: Performed By: #### L 501.5200, L503.7505, L500.2500, L100.0100 ####[facility] [address] [place], [address] Platelet mean volume (Bld) [Entitic vol] 10.8 fL Normal 6.2-12.0 [facility] Comment on above: Performed By: #### L 501.5200, L503.7505, L500.2500, L100.0100 ####[facility] [address] [place], [address] Platelets (Bld) [#/Vol] 247 10*3/uL Normal 150-450 [facility] Comment on above: Performed By: #### L 501.5200, L503.7505, L500.2500, L100.0100 ####[facility] [address] [place], [address] RBC (Bld) [#/Vol] 4.33 10*6/uL Normal 4.2-5.4 [facility] Comment on above: Performed By: #### L 501.5200, L503.7505, L500.2500, L100.0100 ####[facility] [address] [place], [address] RDW SD 51.0 fl High 35.1-43.9 [facility] Comment on above: Performed By: #### L 501.5200, L503.7505, L500.2500, L100.0100 ####[facility] [address] [place], [address] WBC (Bld) [#/Vol] 8.9 10*3/uL Normal 4.4-11.0 [facility] Comment on above: Performed By: #### L 501.5200, L503.7505, L500.2500, L100.0100 ####[facility] [address] [place], [address] Carbon dioxide, total [Moles /volume] in Central venous bloodOrdered By: Jg Bryna on 01-26-2025 CO2 [Moles/Vol] 27.1 mmol/L 21.0-32.0 [facility] Chest PA and Lateralon 01-26 Chest PA and Lateral Normal [facility] Chloride assayOrdered By: Matilde Bryan on 01-26-2025 Chloride [Moles/Vol] 104 mmol/L 98-108 [facility] Emergency Department Summary on 01-26-2025 Emergency Department Summary Normal [facility] Eosinophil percentageOrdered By: Jg Bryan on 01-26-2025 Eosinophils/100 WBC (Bld) 2.8 % 0-5 [facility] Erythrocyte distribution wid th ratioOrdered By: Jg Bryan on 01-26-2025 Erythrocyte distribution width (RBC) [Ratio] 15.9 % High 11.6-14.6 [facility] Erythrocyte distribution wid th standard deviationOrdered By: Jg Bryan on 01-26-2025 Erythrocyte distribution width (RBC) [Ratio] 51.0 fl High 35.1-43.9 [facility] Glomerular filtration rate ( GFR) estimation/1.73 sq m using serum, plasma, or whole bOrdered By: Jg Bryan on 01-26-2025 GFR/1.73 sq M.predicted among non-blacks MDRD (S/P/Bld) [Vol rate/Area] 47 mL/min/{1.73_m2} Low >60 [facility] Hematocrit Auto (Bld) [Volum e fraction]Ordered By: Jg Bryan on 01-26-2025 Hematocrit (Bld) [Volume fraction] 37.9 % 37-47 [facility] Hemoglobin measurementOrdere d By: Jg Bryan on 01-26-2025 Hemoglobin (Bld) [Mass/Vol] 11.8 g/dL Low 12.0-15.0 [facility] Immature granulocytes/100 WB C Auto (Bld)Ordered By: Jg Bryan on 01-26-2025 Immature granulocytes/100 WBC (Bld) 0.300 % 0.0-0.9 [facility] L503.7505on 01-26-2025 Natriuretic peptide B (Bld) [Mass/Vol] 3334 pg/mL High <=1800 [facility] Comment on above: Result Comment: Hear t Failure Unlikely: < 300 pg/mLHeart Failure Likely< 50 Years: > 450 pg/mL50-75 Years: > 900 pg/mL>75 Years: > 1800 pg/mL Performed By: #### L 501.5200, L503.7505, L500.2500, L100.0100 ####[facility] [address] [place], [address] MCV (mean corpuscular volume ) determinationOrdered By: Jg Bryan on 01-26-2025 MCV (RBC) [Entitic vol] 87.5 fL 81-[address] [facility] Magnesiumon 01-26-2025 Magnesium [Mass/Vol] 2.7 mg/dL High 1.5-2.2 [facility] Comment on above: Performed By: #### L 501.5200, L503.7505, L500.2500, L100.0100 ####[facility] [address] [place], [place], [address] Magnesium measurement (mass/ volume)Ordered By: Jg Bryan on 01-26-2025 Magnesium (Unsp spec) [Mass/Vol] 2.7 mg/dL High 1.5-2.2 [facility] Mean corpuscular hemoglobin (MCH) determinationOrdered By: Jg Bryan on 01-26-2025 MCH (RBC) [Entitic mass] 27.3 pg 27.0-32.0 [facility] Monocyte percentageOrdered B y: Jg Bryan on 01-26-2025 Monocytes/100 WBC (Bld) 6.7 % 0-[address] [facility] Natriuretic peptide.B prohor hayley N-Terminal [Mass/volume] in Serum or PlasmaOrdered By: Jg Bryan on 01-26-2025 Natriuretic peptide.B prohormone N-Terminal [Mass/Vol] 3334 pg/mL High <1800 [facility] Neutrophil percentageOrdered By: Jg Bryan on 01-26-2025 Neutrophils/100 WBC (Bld) 65.0 % 47-70 [facility] Platelet countOrdered By: Matilde Bryan on 01-26-2025 Platelets (Bld) [#/Vol] 247 10*3/uL 150-450 [facility] Potassium measurement (mass/ volume)Ordered By: Jg Bryan on 01-26-2025 Potassium (Unsp spec) [Mass/Vol] 4.1 mmol/L 3.3-5.1 [facility] RBC Auto (Bld) [#/Vol]Ordere d By: Jg Bryan on 01-26-2025 RBC (Bld) [#/Vol] 4.33 10*6/uL 4.2-5.4 [facility] Serum creatinine measurement (mass/volume)Ordered By: Jg Bryan on 01-26-2025 Creatinine [Mass/Vol] 1.16 mg/dL 0.70-1.20 [facility] Serum glucose measurement (m ass/volume)Ordered By: Jg Bryan on 01-26-2025 Glucose [Mass/Vol] 211 mg/dL High 70-99 [facility] Serum or plasma calcium melanie urement (mass/volume)Ordered By: Jg Bryan on 01-26-2025 Calcium [Mass/Vol] 10.2 mg/dL 7.6-11.0 [facility] Serum or plasma urea nitroge n measurement (mass/volume)Ordered By: Jg Bryan on 01-26-2025 Urea nitrogen [Mass/Vol] 35 mg/dL High 4-19 [facility] Sodium levelOrdered By: Cosme Bryan on 01-26-2025 Sodium [Moles/Vol] 141 mmol/L 133-145 [facility] White blood cell (WBC) count Ordered By: Jg Bryan on 01-26-2025 WBC (Bld) [#/Vol] 8.9 10*3/uL 4.4-11.0 [facility] Basic Metabolic Profile (BMP )on 01-25-2025 BUN Normal 4-19 [facility] Comment on above: Result Comment: Canc elled via OM: Order cancelled - Patient discharged Performed By: #### L 100.0100, L500.2500 ####[facility] [address] [place], [address] BUN/CRE Normal 10-20 [facility] Comment on above: Result Comment: Canc elled via OM: Order cancelled - Patient discharged Performed By: #### L 100.0100, L500.2500 ####[facility] [address] [place], [address] Calcium Normal 7.6-11.0 [facility] Comment on above: Result Comment: Canc elled via OM: Order cancelled - Patient discharged Performed By: #### L 100.0100, L500.2500 ####[facility] [address] [place], [address] CL Normal 98-108 [facility] Comment on above: Result Comment: Canc elled via OM: Order cancelled - Patient discharged Performed By: #### L 100.0100, L500.2500 ####[facility] [address] [place], [address] CO2 Normal 21.0-32.0 [facility] Comment on above: Result Comment: Canc elled via OM: Order cancelled - Patient discharged Performed By: #### L 100.0100, L500.2500 ####[facility] [address] [place], [address] CREAT,SERUM Normal 0.70-1.20 [facility] Comment on above: Result Comment: Canc elled via OM: Order cancelled - Patient discharged Performed By: #### L 100.0100, L500.2500 ####[facility] [address] [place], [address] eGFR Normal >60 [facility] Comment on above: Result Comment: Canc elled via OM: Order cancelled - Patient discharged Performed By: #### L 100.0100, L500.2500 ####[facility] [address] [place], [address] GAP Normal 5-15 [facility] Comment on above: Result Comment: Canc elled via OM: Order cancelled - Patient discharged Performed By: #### L 100.0100, L500.2500 ####[facility] [address] [place], [address] GLU Normal 70-99 [facility] Comment on above: Result Comment: Canc elled via OM: Order cancelled - Patient discharged Performed By: #### L 100.0100, L500.2500 ####[facility] [address] [place], [address] Potassium Normal 3.3-5.1 [facility] Comment on above: Result Comment: Canc elled via OM: Order cancelled - Patient discharged Performed By: #### L 100.0100, L500.2500 ####[facility] [address] [place], [address] Basic Metabolic Profile (BMP) Normal 133-145 [facility] Comment on above: Result Comment: Canc elled via OM: Order cancelled - Patient discharged Performed By: #### L 100.0100, L500.2500 ####[facility] [address] [place], [address] CBC W/Diff, Automatedon 05-2 Absolute Neut Normal 2.0-7.7 [facility] Comment on above: Result Comment: Canc elled via OM: Order cancelled - Patient discharged Performed By: #### L 100.0100, L500.2500 ####[facility] [address] [place], [address] HCT Normal 37-47 [facility] Comment on above: Result Comment: Canc elled via OM: Order cancelled - Patient discharged Performed By: #### L 100.0100, L500.2500 ####[facility] [address] [place], [address] HGB Normal 12.0-15.0 [facility] Comment on above: Result Comment: Canc elled via OM: Order cancelled - Patient discharged Performed By: #### L 100.0100, L500.2500 ####[facility] [address] [place], [address] MCH Normal 27.0-32.0 [facility] Comment on above: Result Comment: Canc elled via OM: Order cancelled - Patient discharged Performed By: #### L 100.0100, L500.2500 ####[facility] [address] [place], [address] MCHC Normal 32-36 [facility] Comment on above: Result Comment: Canc elled via OM: Order cancelled - Patient discharged Performed By: #### L 100.0100, L500.2500 ####[facility] [address] [place], [address] MCV Normal 81-99 [facility] Comment on above: Result Comment: Canc elled via OM: Order cancelled - Patient discharged Performed By: #### L 100.0100, L500.2500 ####[facility] [address] [place], [address] NEUT% Normal 47-70 [facility] Comment on above: Result Comment: Canc elled via OM: Order cancelled - Patient discharged Performed By: #### L 100.0100, L500.2500 ####[facility] [address] [place], [address] PLT Normal 150-450 [facility] Comment on above: Result Comment: Canc elled via OM: Order cancelled - Patient discharged Performed By: #### L 100.0100, L500.2500 ####[facility] [address] [place], [address] RBC Normal 4.2-5.4 [facility] Comment on above: Result Comment: Canc elled via OM: Order cancelled - Patient discharged Performed By: #### L 100.0100, L500.2500 ####[facility] [address] [place], [address] RDW CV Normal 11.6-14.6 [facility] Comment on above: Result Comment: Canc elled via OM: Order cancelled - Patient discharged Performed By: #### L 100.0100, L500.2500 ####[facility] [address] [place], [address] RDW SD Normal 35.1-43.9 [facility] Comment on above: Result Comment: Canc elled via OM: Order cancelled - Patient discharged Performed By: #### L 100.0100, L500.2500 ####[facility] [address] [place], [address] WBC Normal 4.4-11.0 [facility] Comment on above: Result Comment: Canc elled via OM: Order cancelled - Patient discharged Performed By: #### L 100.0100, L500.2500 ####[facility] [address] [place], [address] Culture, Blood (WB)on 2024 CUB Blood cultures x2, from two different sites No growth in 5 days. Normal [facility] Comment on above: Performed By: #### M 200.1000 ####[facility] [address] [place], [address] Performed By: #### M 200.1000, L503.6005 ####[facility] [address] [place], [address] Performed By: #### L 300.4310, L100.0100, L300.3900, L501.4021, L503.6005, L500.4050, M200.1000 ####[facility] [address] [place], [address] Absolute lymphocyte countOrd ered By: Melba Hartmann on 01-24-2025 Lymphocytes Auto (Unsp spec) [#/Vol] 2.19 10*3/uL 0.83-4.51 [facility] Anion gap in Serum or Plasma Ordered By: Melba Hartmann on 01-24-2025 Anion gap [Moles/Vol] 12 mmol/L 5-15 [facility] Automated lymphocyte count a s percentage of total leukocytesOrdered By: Melba Hartmann on 01-24-2025 Lymphocytes/100 WBC Auto (Unsp spec) 19.3 % 19-41 [facility] BUN/creatinine ratioOrdered By: Melba Hartmann on 01-24-2025 Urea nitrogen/Creatinine [Mass ratio] 35.2 mg/mg High 10-20 [facility] Basic Metabolic Profile (BMP )on 01-24-2025 BUN/CRE 35.2 RATIO High [facility]20 [facility] Comment on above: Performed By: #### L 500.2500, L100.0100 ####[facility] [address] [place], [address] Calcium [Mass/Vol] 10.1 mg/dL Normal 7.6-11.0 [facility] Comment on above: Performed By: #### L 500.2500, L100.0100 ####[facility] [address] [place], [address] Chloride [Moles/Vol] 102 mmol/L Normal 98-108 [facility] Comment on above: Performed By: #### L 500.2500, L100.0100 ####[facility] [address] [place], [address] CO2 [Moles/Vol] 23.7 mmol/L Normal 21.0-32.0 [facility] Comment on above: Performed By: #### L 500.2500, L100.0100 ####[facility] [address] [place], [address] Creatinine [Mass/Vol] 1.31 mg/dL High 0.70-1.20 [facility] Comment on above: Performed By: #### L 500.2500, L100.0100 ####[facility] [address] [place], [address] ECRCL 33.41 ml/min Low 50-250 [facility] Comment on above: Performed By: #### L 500.2500, L100.0100 ####[facility] [address] [place], [address] GAP 12 Normal 5-15 [facility] Comment on above: Performed By: #### L 500.2500, L100.0100 ####[facility] [address] [place], [address] GFR/1.73 sq M.predicted among non-blacks MDRD (S/P/Bld) [Vol rate/Area] 41 mL/min/{1.73_m2} Low >60 [facility] Comment on above: Result Comment: mL/m in/1.73m2 CKD-EPI Creatinine Equation (2020) Performed By: #### L 500.2500, L100.0100 ####[facility] [address] [place], [address] Glucose [Mass/Vol] 133 mg/dL High 70-99 [facility] Comment on above: Performed By: #### L 500.2500, L100.0100 ####[facility] [address] [place], [address] Potassium [Moles/Vol] 3.5 mmol/L Normal 3.3-5.1 [facility] Comment on above: Performed By: #### L 500.2500, L100.0100 ####[facility] [address] [place], [address] Sodium [Moles/Vol] 138 mmol/L Normal 133-145 [facility] Comment on above: Performed By: #### L 500.2500, L100.0100 ####[facility] [address] [place], [address] Urea nitrogen [Mass/Vol] 46 mg/dL High 4-19 [facility] Comment on above: Performed By: #### L 500.2500, L100.0100 ####[facility] [address] [place], [address] Basophil percentageOrdered B y: Melba Hartmann on 01-24-2025 Basophils/100 WBC (Bld) 0.2 % 0-[address] [facility] Bedside Glucoseon 01-24-2025 FINGERSTICK GLU 167 mg/dL High 74-106 [facility] Comment on above: Result Comment: KATARINA GEMENT OF PATIENT CARE PER NURSING PROTOCOL Performed By: #### L 501.080 ####[facility] [address] [place], [address] FINGERSTICK GLU 143 mg/dL High 74-106 [facility] Comment on above: Result Comment: KATARINA GEMENT OF PATIENT CARE PER NURSING PROTOCOL Performed By: #### L 501.080 ####[facility] [address] [place], [address] CBC W/Diff, Automatedon - Absolute Lymph 2.19 X10 3/uL Normal 0.83-4.51 [facility] Comment on above: Performed By: #### L 500.2500, L100.0100 ####[facility] [address] [place], [address] Absolute Neut 8.2 X10 3/uL High 2.0-7.7 [facility] Comment on above: Performed By: #### L 500.2500, L100.0100 ####[facility] [address] [place], [address] Basophils/100 WBC (Bld) 0.2 % Normal 0-[address] [facility] Comment on above: Performed By: #### L 500.2500, L100.0100 ####[facility] [address] [place], [address] Eosinophils/100 WBC (Bld) 0.2 % Normal 0-5 [facility] Comment on above: Performed By: #### L 500.2500, L100.0100 ####[facility] [address] [place], [address] Erythrocyte distribution width (RBC) [Ratio] 15.8 % High 11.6-14.6 [facility] Comment on above: Performed By: #### L 500.2500, L100.0100 ####[facility] [address] [place], [address] Hematocrit (Bld) [Volume fraction] 40.7 % Normal 37-47 [facility] Comment on above: Performed By: #### L 500.2500, L100.0100 ####[facility] [address] [place], [address] Hemoglobin (Bld) [Mass/Vol] 12.7 g/dL Normal 12.0-15.0 [facility] Comment on above: Performed By: #### L 500.2500, L100.0100 ####[facility] [address] [place], [address] IG% 0.400 Normal 0.0-0.9 [facility] Comment on above: Result Comment: IG% - Immature Granulocytes (promyelocytes, myelocytes andmetamyelocytes) > 1% indicates that a LEFT SHIFT is Present. Performed By: #### L 500.2500, L100.0100 ####[facility] [address] [place], [address] Lymphocytes/100 WBC (Bld) 19.3 % Normal 19-41 [facility] Comment on above: Performed By: #### L 500.2500, L100.0100 ####[facility] [address] [place], [address] MCH (RBC) [Entitic mass] 27.4 pg Normal 27.0-32.0 [facility] Comment on above: Performed By: #### L 500.2500, L100.0100 ####[facility] [address] [place], [address] MCHC (RBC) [Mass/Vol] 31.2 g/dL Low 32-36 [facility] Comment on above: Performed By: #### L 500.2500, L100.0100 ####[facility] [address] [place], [address] MCV (RBC) [Entitic vol] 87.7 fL Normal 81-[address] [facility] Comment on above: Performed By: #### L 500.2500, L100.0100 ####[facility] [address] [place], [address] Monocytes/100 WBC (Bld) 7.4 % Normal 0-[address] [facility] Comment on above: Performed By: #### L 500.2500, L100.0100 ####[facility] [address] [place], [address] Neutrophils/100 WBC (Bld) 72.5 % High 47-70 [facility] Comment on above: Performed By: #### L 500.2500, L100.0100 ####[facility] [address] [place], [address] Nucleated RBC (Bld) [#/Vol] 0 10*3/uL Normal 0-5 [facility] Comment on above: Performed By: #### L 500.2500, L100.0100 ####[facility] [address] [place], [address] Platelet mean volume (Bld) [Entitic vol] 10.9 fL Normal 6.2-12.0 [facility] Comment on above: Performed By: #### L 500.2500, L100.0100 ####[facility] [address] [place], [address] Platelets (Bld) [#/Vol] 297 10*3/uL Normal 150-450 [facility] Comment on above: Performed By: #### L 500.2500, L100.0100 ####[facility] [address] [place], [address] RBC (Bld) [#/Vol] 4.64 10*6/uL Normal 4.2-5.4 [facility] Comment on above: Performed By: #### L 500.2500, L100.0100 ####[facility] [address] [place], [address] RDW SD 50.9 fl High 35.1-43.9 [facility] Comment on above: Performed By: #### L 500.2500, L100.0100 ####[facility] [address] [place], [address] WBC (Bld) [#/Vol] 11.3 10*3/uL High 4.4-11.0 [facility] Comment on above: Performed By: #### L 500.2500, L100.0100 ####[facility] [address] [place], [address] Carbon dioxide, total [Moles /volume] in Central venous bloodOrdered By: Melba Hartmann on 01-24-2025 CO2 [Moles/Vol] 23.7 mmol/L 21.0-32.0 [facility] Chloride assayOrdered By: Ewelina Hartmann on 01-24-2025 Chloride [Moles/Vol] 102 mmol/L 98-108 [facility] Discharge Instructionon 05-2 Discharge Instruction Normal [facility] Electrocardiogram reportOrde red By: Marcelina Soto on 01-24-2025 EKG study [facility] Work Phone: [phone] Eosinophil percentageOrdered By: Melba Hartmann on 01-24-2025 Eosinophils/100 WBC (Bld) 0.2 % 0-5 [facility] Erythrocyte distribution wid th ratioOrdered By: Melba Hartmann on 01-24-2025 Erythrocyte distribution width (RBC) [Ratio] 15.8 % High 11.6-14.6 [facility] Erythrocyte distribution wid th standard deviationOrdered By: Melba Hartmann on 01-24-2025 Erythrocyte distribution width (RBC) [Ratio] 50.9 fl High 35.1-43.9 [facility] Glomerular filtration rate ( GFR) estimation/1.73 sq m using serum, plasma, or whole bOrdered By: Melba Hartmann on 01-24-2025 GFR/1.73 sq M.predicted among non-blacks MDRD (S/P/Bld) [Vol rate/Area] 41 mL/min/{1.73_m2} Low >60 [facility] Glucose measurement at bedsi deOrdered By: Melba Hartmann on 01-24-2025 Glucose [Mass/Vol] 167 mg/dL High 74-106 [facility] Hematocrit Auto (Bld) [Volum e fraction]Ordered By: Melba Hartmann 01-24-2025 Hematocrit (Bld) [Volume fraction] 40.7 % 37-47 [facility] Hemoglobin measurementOrdere d By: Melba Hartmann on 01-24-2025 Hemoglobin (Bld) [Mass/Vol] 12.7 g/dL 12.0-15.0 [facility] Immature granulocytes/100 WB C Auto (Bld)Ordered By: Melba Hartmann on 01-24-2025 Immature granulocytes/100 WBC (Bld) 0.400 % 0.0-0.9 [facility] MCV (mean corpuscular volume ) determinationOrdered By: Melba Hartmann on 01-24-2025 MCV (RBC) [Entitic vol] 87.7 fL 81-[address] [facility] Mean corpuscular hemoglobin (MCH) determinationOrdered By: Melba Hartmann on 01-24-2025 MCH (RBC) [Entitic mass] 27.4 pg 27.0-32.0 [facility] Monocyte percentageOrdered B y: Melba Hartmann on 01-24-2025 Monocytes/100 WBC (Bld) 7.4 % 0-[address] [facility] Neutrophil percentageOrdered By: Melba Hartmann on 01-24-2025 Neutrophils/100 WBC (Bld) 72.5 % High 47-70 [facility] Platelet countOrdered By: Na ewelina Hartmann on 01-24-2025 Platelets (Bld) [#/Vol] 297 10*3/uL 150-450 [facility] Potassium measurement (mass/ volume)Ordered By: Melba Hartmann on 01-24-2025 Potassium (Unsp spec) [Mass/Vol] 3.5 mmol/L 3.3-5.1 [facility] RBC Auto (Bld) [#/Vol]Ordere d By: Melba Hartmann on 01-24-2025 RBC (Bld) [#/Vol] 4.64 10*6/uL 4.2-5.4 [facility] Serum creatinine measurement (mass/volume)Ordered By: Melba Hartmann on 01-24-2025 Creatinine [Mass/Vol] 1.31 mg/dL High 0.70-1.20 [facility] Serum glucose measurement (m ass/volume)Ordered By: Melba Hartmann 01-24-2025 Glucose [Mass/Vol] 133 mg/dL High 70-99 [facility] Serum or plasma calcium melanie urement (mass/volume)Ordered By: Melba Hartmann 01-24-2025 Calcium [Mass/Vol] 10.1 mg/dL 7.6-11.0 [facility] Serum or plasma urea nitroge n measurement (mass/volume)Ordered By: Melba Hartmann on 01-24-2025 Urea nitrogen [Mass/Vol] 46 mg/dL High 4-19 [facility] Sodium levelOrdered By: Melba Hartmann on 01-24-2025 Sodium [Moles/Vol] 138 mmol/L 133-145 [facility] White blood cell (WBC) count Ordered By: Melba Hartmann on 01-24-2025 WBC (Bld) [#/Vol] 11.3 10*3/uL High 4.4-11.0 [facility] Basic Metabolic Profile (BMP )on 01-23-2025 BUN/CRE 33.0 RATIO High 10-20 [facility] Comment on above: Performed By: #### L 100.0100, L500.2500 ####[facility] [address] [place], [address] Calcium [Mass/Vol] 10.8 mg/dL Normal 7.6-11.0 [facility] Comment on above: Performed By: #### L 100.0100, L500.2500 ####[facility] [address] [place], [address] Chloride [Moles/Vol] 98 mmol/L Normal 98-108 [facility] Comment on above: Performed By: #### L 100.0100, L500.2500 ####[facility] [address] [place], [address] CO2 [Moles/Vol] 25.4 mmol/L Normal 21.0-32.0 [facility] Comment on above: Performed By: #### L 100.0100, L500.2500 ####[facility] [address] [place], [address] Creatinine [Mass/Vol] 1.32 mg/dL High 0.70-1.20 [facility] Comment on above: Performed By: #### L 100.0100, L500.2500 ####[facility] [address] [place], [address] ECRCL 32.84 ml/min Low 50-250 [facility] Comment on above: Performed By: #### L 100.0100, L500.2500 ####[facility] [address] [place], [address] GAP 12 Normal 5-15 [facility] Comment on above: Performed By: #### L 100.0100, L500.2500 ####[facility] [address] [place], [address] GFR/1.73 sq M.predicted among non-blacks MDRD (S/P/Bld) [Vol rate/Area] 41 mL/min/{1.73_m2} Low >60 [facility] Comment on above: Result Comment: mL/m in/1.73m2 CKD-EPI Creatinine Equation (2020) Performed By: #### L 100.0100, L500.2500 ####[facility] [address] [place], [address] Glucose [Mass/Vol] 200 mg/dL High 70-99 [facility] Comment on above: Performed By: #### L 100.0100, L500.2500 ####[facility] [address] [place], [address] Potassium [Moles/Vol] 5.2 mmol/L High 3.3-5.1 [facility] Comment on above: Result Comment: Hemo lysis present, Results??could be affected.?? Performed By: #### L 100.0100, L500.2500 ####[facility] [address] [place], [address] Sodium [Moles/Vol] 135 mmol/L Normal 133-145 [facility] Comment on above: Performed By: #### L 100.0100, L500.2500 ####[facility] [address] [place], [address] Urea nitrogen [Mass/Vol] 44 mg/dL High 4-19 [facility] Comment on above: Performed By: #### L 100.0100, L500.2500 ####[facility] [address] [place], [address] Bedside Glucoseon 01-23-2025 FINGERSTICK GLU 294 mg/dL High 74-106 [facility] Comment on above: Result Comment: KATARINA GEMENT OF PATIENT CARE PER NURSING PROTOCOL Performed By: #### L 501.080 ####[facility] [address] [place], [address] FINGERSTICK GLU 314 mg/dL High 74-106 [facility] Comment on above: Result Comment: KATARINA GEMENT OF PATIENT CARE PER NURSING PROTOCOL Performed By: #### L 501.080 ####[facility] [address] [place], [address] FINGERSTICK GLU 291 mg/dL High 74-106 [facility] Comment on above: Result Comment: KATARINA GEMENT OF PATIENT CARE PER NURSING PROTOCOL Performed By: #### L 501.080 ####[facility] [address] [place], [address] FINGERSTICK GLU 214 mg/dL High 74-106 [facility] Comment on above: Result Comment: KATARINA GEMENT OF PATIENT CARE PER NURSING PROTOCOL Performed By: #### L 501.080 ####[facility] [address] [place], [address] CBC W/Diff, Automatedon 05- Absolute Lymph 0.74 X10 3/uL Low 0.83-4.51 [facility] Comment on above: Performed By: #### L 100.0100, L500.2500 ####[facility] [address] [place], [address] Absolute Neut 10.9 X10 3/uL High 2.0-7.7 [facility] Comment on above: Performed By: #### L 100.0100, L500.2500 ####[facility] [address] [place], [address] Basophils/100 WBC (Bld) 0.1 % Normal 0-[address] [facility] Comment on above: Performed By: #### L 100.0100, L500.2500 ####[facility] [address] [place], [address] Eosinophils/100 WBC (Bld) 0.0 % Normal 0-5 [facility] Comment on above: Performed By: #### L 100.0100, L500.2500 ####[facility] [address] [place], [address] Erythrocyte distribution width (RBC) [Ratio] 15.8 % High 11.6-14.6 [facility] Comment on above: Performed By: #### L 100.0100, L500.2500 ####[facility] [address] [place], [address] Hematocrit (Bld) [Volume fraction] 41.8 % Normal 37-47 [facility] Comment on above: Performed By: #### L 100.0100, L500.2500 ####[facility] [address] [place], [address] Hemoglobin (Bld) [Mass/Vol] 13.1 g/dL Normal 12.0-15.0 [facility] Comment on above: Performed By: #### L 100.0100, L500.2500 ####[facility] [address] [place], [address] IG% 0.200 Normal 0.0-0.9 [facility] Comment on above: Result Comment: IG% - Immature Granulocytes (promyelocytes, myelocytes andmetamyelocytes) > 1% indicates that a LEFT SHIFT is Present. Performed By: #### L 100.0100, L500.2500 ####[facility] [address] [place], [address] Lymphocytes/100 WBC (Bld) 6.2 % Low 19-41 [facility] Comment on above: Performed By: #### L 100.0100, L500.2500 ####[facility] [address] [place], [address] MCH (RBC) [Entitic mass] 27.3 pg Normal 27.0-32.0 [facility] Comment on above: Performed By: #### L 100.0100, L500.2500 ####[facility] [address] [place], [address] MCHC (RBC) [Mass/Vol] 31.3 g/dL Low 32-36 [facility] Comment on above: Performed By: #### L 100.0100, L500.2500 ####[facility] [address] [place], [address] MCV (RBC) [Entitic vol] 87.1 fL Normal 81-99 [facility] Comment on above: Performed By: #### L 100.0100, L500.2500 ####[facility] [address] [place], [address] Monocytes/100 WBC (Bld) 2.7 % Normal 0-10 [facility] Comment on above: Performed By: #### L 100.0100, L500.2500 ####[facility] [address] [place], [address] Neutrophils/100 WBC (Bld) 90.8 % High 47-70 [facility] Comment on above: Performed By: #### L 100.0100, L500.2500 ####[facility] [address] [place], [address] Nucleated RBC (Bld) [#/Vol] 0 10*3/uL Normal 0-5 [facility] Comment on above: Performed By: #### L 100.0100, L500.2500 ####[facility] [address] [place], [address] Platelet mean volume (Bld) [Entitic vol] 11.6 fL Normal 6.2-12.0 [facility] Comment on above: Performed By: #### L 100.0100, L500.2500 ####[facility] [address] [place], [address] Platelets (Bld) [#/Vol] 322 10*3/uL Normal 150-450 [facility] Comment on above: Performed By: #### L 100.0100, L500.2500 ####[facility] [address] [place], [address] RBC (Bld) [#/Vol] 4.80 10*6/uL Normal 4.2-5.4 [facility] Comment on above: Performed By: #### L 100.0100, L500.2500 ####[facility] [address] [place], [address] RDW SD 50.2 fl High 35.1-43.9 [facility] Comment on above: Performed By: #### L 100.0100, L500.2500 ####[facility] [address] [place], [address] WBC (Bld) [#/Vol] 12.0 10*3/uL High 4.4-11.0 [facility] Comment on above: Performed By: #### L 100.0100, L500.2500 ####[facility] [address] [place], [address] Basic Metabolic Profile (BMP )on 01-22-2025 BUN/CRE 29.2 RATIO High 10-20 [facility] Comment on above: Performed By: #### L 500.2500, L100.0100 ####[facility] [address] [place], [address] Calcium [Mass/Vol] 10.2 mg/dL Normal 7.6-11.0 [facility] Comment on above: Performed By: #### L 500.2500, L100.0100 ####[facility] [address] [place], [address] Chloride [Moles/Vol] 99 mmol/L Normal 98-108 [facility] Comment on above: Performed By: #### L 500.2500, L100.0100 ####[facility] [address] [place], [address] CO2 [Moles/Vol] 27.0 mmol/L Normal 21.0-32.0 [facility] Comment on above: Performed By: #### L 500.2500, L100.0100 ####[facility] [address] [place], [address] Creatinine [Mass/Vol] 1.07 mg/dL Normal 0.70-1.20 [facility] Comment on above: Performed By: #### L 500.2500, L100.0100 ####[facility] [address] [place], [address] ECRCL 40.54 ml/min Low 50-250 [facility] Comment on above: Performed By: #### L 500.2500, L100.0100 ####[facility] [address] [place], [address] GAP 10 Normal 5-15 [facility] Comment on above: Performed By: #### L 500.2500, L100.0100 ####[facility] [address] [place], [address] GFR/1.73 sq M.predicted among non-blacks MDRD (S/P/Bld) [Vol rate/Area] 52 mL/min/{1.73_m2} Low >60 [facility] Comment on above: Result Comment: mL/m in/1.73m2 CKD-EPI Creatinine Equation (2020) Performed By: #### L 500.2500, L100.0100 ####[facility] [address] [place], [address] Glucose [Mass/Vol] 160 mg/dL High 70-99 [facility] Comment on above: Performed By: #### L 500.2500, L100.0100 ####[facility] [address] [place], [address] Potassium [Moles/Vol] 4.8 mmol/L Normal 3.3-5.1 [facility] Comment on above: Performed By: #### L 500.2500, L100.0100 ####[facility] [address] [place], [address] Sodium [Moles/Vol] 136 mmol/L Normal 133-145 [facility] Comment on above: Performed By: #### L 500.2500, L100.0100 ####[facility] [address] [place], [address] Urea nitrogen [Mass/Vol] 31 mg/dL High 4-19 [facility] Comment on above: Performed By: #### L 500.2500, L100.0100 ####[facility] [address] [place], [address] Bedside Glucoseon 01-22-2025 FINGERSTICK GLU 310 mg/dL High 74-106 [facility] Comment on above: Result Comment: KATARINA GEMENT OF PATIENT CARE PER NURSING PROTOCOL Performed By: #### L 501.080 ####[facility] [address] [place], [address] FINGERSTICK GLU 269 mg/dL High 74-106 [facility] Comment on above: Result Comment: KATARINA GEMENT OF PATIENT CARE PER NURSING PROTOCOL Performed By: #### L 501.080 ####[facility] [address] [place], [address] FINGERSTICK GLU 232 mg/dL High 74-106 [facility] Comment on above: Result Comment: KATARINA GEMENT OF PATIENT CARE PER NURSING PROTOCOL Performed By: #### L 501.080 ####[facility] [address] [place], [address] FINGERSTICK GLU 183 mg/dL High 74-106 [facility] Comment on above: Result Comment: KATARINA GEMENT OF PATIENT CARE PER NURSING PROTOCOL Performed By: #### L 501.080 ####[facility] [address] [place], [address] CBC W/Diff, Automatedon 05-2 -2024 Absolute Lymph 0.73 X10 3/uL Low 0.83-4.51 [facility] Comment on above: Performed By: #### L 500.2500, L100.0100 ####[facility] [address] [place], [address] Absolute Neut 11.7 X10 3/uL High 2.0-7.7 [facility] Comment on above: Performed By: #### L 500.2500, L100.0100 ####[facility] [address] [place], [address] Basophils/100 WBC (Bld) 0.0 % Normal 0-[address] [facility] Comment on above: Performed By: #### L 500.2500, L100.0100 ####[facility] [address] [place], [address] Eosinophils/100 WBC (Bld) 0.0 % Normal 0-5 [facility] Comment on above: Performed By: #### L 500.2500, L100.0100 ####[facility] [address] [place], [address] Erythrocyte distribution width (RBC) [Ratio] 15.9 % High 11.6-14.6 [facility] Comment on above: Performed By: #### L 500.2500, L100.0100 ####[facility] [address] [place], [address] Hematocrit (Bld) [Volume fraction] 35.6 % Low 37-47 [facility] Comment on above: Performed By: #### L 500.2500, L100.0100 ####[facility] [address] [place], [address] Hemoglobin (Bld) [Mass/Vol] 11.1 g/dL Low 12.0-15.0 [facility] Comment on above: Performed By: #### L 500.2500, L100.0100 ####[facility] [address] [place], [address] IG% 0.500 Normal 0.0-0.9 [facility] Comment on above: Result Comment: IG% - Immature Granulocytes (promyelocytes, myelocytes andmetamyelocytes) > 1% indicates that a LEFT SHIFT is Present. Performed By: #### L 500.2500, L100.0100 ####[facility] [address] [place], [address] Lymphocytes/100 WBC (Bld) 5.7 % Low 19-41 [facility] Comment on above: Performed By: #### L 500.2500, L100.0100 ####[facility] [address] [place], [address] MCH (RBC) [Entitic mass] 27.3 pg Normal 27.0-32.0 [facility] Comment on above: Performed By: #### L 500.2500, L100.0100 ####[facility] [address] [place], [address] MCHC (RBC) [Mass/Vol] 31.2 g/dL Low 32-36 [facility] Comment on above: Performed By: #### L 500.2500, L100.0100 ####[facility] [address] [place], [address] MCV (RBC) [Entitic vol] 87.7 fL Normal 81-[address] [facility] Comment on above: Performed By: #### L 500.2500, L100.0100 ####[facility] [address] [place], [address] Monocytes/100 WBC (Bld) 2.4 % Normal 0-[address] [facility] Comment on above: Performed By: #### L 500.2500, L100.0100 ####[facility] [address] [place], [address] Neutrophils/100 WBC (Bld) 91.4 % High 47-70 [facility] Comment on above: Performed By: #### L 500.2500, L100.0100 ####[facility] [address] [place], [address] Nucleated RBC (Bld) [#/Vol] 0 10*3/uL Normal 0-5 [facility] Comment on above: Performed By: #### L 500.2500, L100.0100 ####[facility] [address] [place], [address] Platelet mean volume (Bld) [Entitic vol] 11.1 fL Normal 6.2-12.0 [facility] Comment on above: Performed By: #### L 500.2500, L100.0100 ####[facility] [address] [place], [address] Platelets (Bld) [#/Vol] 281 10*3/uL Normal 150-450 [facility] Comment on above: Performed By: #### L 500.2500, L100.0100 ####[facility] [address] [place], [address] RBC (Bld) [#/Vol] 4.06 10*6/uL Low 4.2-5.4 [facility] Comment on above: Performed By: #### L 500.2500, L100.0100 ####[facility] [address] [place], [address] RDW SD 51.3 fl High 35.1-43.9 [facility] Comment on above: Performed By: #### L 500.2500, L100.0100 ####[facility] [address] [place], [address] WBC (Bld) [#/Vol] 12.8 10*3/uL High 4.4-11.0 [facility] Comment on above: Performed By: #### L 500.2500, L100.0100 ####[facility] [address] [place], [address] Urine Cultureon 01-22-2025 URC Normal [facility] Comment on above: Performed By: #### M 100.2200 ####[facility] [address] [place], [address] Basic Metabolic Profile (BMP )on 01-21-2025 BUN/CRE 19.6 RATIO Normal 10-20 [facility] Comment on above: Performed By: #### L 503.7505, L500.2500 ####[facility] [address] [place], [address] Calcium [Mass/Vol] 9.8 mg/dL Normal 7.6-11.0 [facility] Comment on above: Performed By: #### L 503.7505, L500.2500 ####[facility] [address] [place], [address] Chloride [Moles/Vol] 99 mmol/L Normal 98-108 [facility] Comment on above: Performed By: #### L 503.7505, L500.2500 ####[facility] [address] [place], [address] CO2 [Moles/Vol] 24.3 mmol/L Normal 21.0-32.0 [facility] Comment on above: Performed By: #### L 503.7505, L500.2500 ####[facility] [address] [place], [address] Creatinine [Mass/Vol] 1.19 mg/dL Normal 0.70-1.20 [facility] Comment on above: Performed By: #### L 503.7505, L500.2500 ####[facility] [address] [place], [address] ECRCL 36.45 ml/min Low 50-250 [facility] Comment on above: Performed By: #### L 503.7505, L500.2500 ####[facility] [address] [place], [address] GAP 14 Normal 5-15 [facility] Comment on above: Performed By: #### L 503.7505, L500.2500 ####[facility] [address] [place], [address] GFR/1.73 sq M.predicted among non-blacks MDRD (S/P/Bld) [Vol rate/Area] 46 mL/min/{1.73_m2} Low >60 [facility] Comment on above: Result Comment: mL/m in/1.73m2 CKD-EPI Creatinine Equation (2020) Performed By: #### L 503.7505, L500.2500 ####[facility] [address] [place], [address] Glucose [Mass/Vol] 208 mg/dL High 70-99 [facility] Comment on above: Performed By: #### L 503.7505, L500.2500 ####[facility] [address] [place], [address] Potassium [Moles/Vol] 4.0 mmol/L Normal 3.3-5.1 [facility] Comment on above: Performed By: #### L 503.7505, L500.2500 ####[facility] [address] [place], [address] Sodium [Moles/Vol] 138 mmol/L Normal 133-145 [facility] Comment on above: Performed By: #### L 503.7505, L500.2500 ####[facility] [address] [place], [address] Urea nitrogen [Mass/Vol] 23 mg/dL High 4-19 [facility] Comment on above: Performed By: #### L 503.7505, L500.2500 ####[facility] [address] [place], [address] Bedside Glucoseon 01-21-2025 FINGERSTICK GLU 271 mg/dL High 74-106 [facility] Comment on above: Result Comment: KATARINA GEMENT OF PATIENT CARE PER NURSING PROTOCOL Performed By: #### L 501.080 ####[facility] [address] [place], [address] FINGERSTICK GLU 254 mg/dL High 74-106 [facility] Comment on above: Result Comment: KATARINA GEMENT OF PATIENT CARE PER NURSING PROTOCOL Performed By: #### L 501.080 ####[facility] [address] [place], [address] FINGERSTICK GLU 323 mg/dL High 74-106 [facility] Comment on above: Result Comment: KATARINA GEMENT OF PATIENT CARE PER NURSING PROTOCOL Performed By: #### L 501.080 ####[facility] [address] [place], [address] FINGERSTICK GLU 202 mg/dL High 74-106 [facility] Comment on above: Result Comment: KATARINA GEMENT OF PATIENT CARE PER NURSING PROTOCOL Performed By: #### L 501.080 ####[facility] [address] [place], [address] CBC W/Diff, Automatedon 05-2 Absolute Lymph 0.79 X10 3/uL Low 0.83-4.51 [facility] Comment on above: Performed By: #### L 100.0100 ####[facility] [address] [place], [address] Absolute Neut 9.1 X10 3/uL High 2.0-7.7 [facility] Comment on above: Performed By: #### L 100.0100 ####[facility] [address] [place], [address] Basophils/100 WBC (Bld) 0.0 % Normal 0-[address] [facility] Comment on above: Performed By: #### L 100.0100 ####[facility] [address] [place], [address] Eosinophils/100 WBC (Bld) 0.0 % Normal 0-5 [facility] Comment on above: Performed By: #### L 100.0100 ####[facility] [address] [place], [address] Erythrocyte distribution width (RBC) [Ratio] 16.0 % High 11.6-14.6 [facility] Comment on above: Performed By: #### L 100.0100 ####[facility] [address] [place], [address] Hematocrit (Bld) [Volume fraction] 35.0 % Low 37-47 [facility] Comment on above: Performed By: #### L 100.0100 ####[facility] [address] [place], [address] Hemoglobin (Bld) [Mass/Vol] 10.8 g/dL Low 12.0-15.0 [facility] Comment on above: Performed By: #### L 100.0100 ####[facility] [address] [place], [address] IG% 0.400 Normal 0.0-0.9 [facility] Comment on above: Result Comment: IG% - Immature Granulocytes (promyelocytes, myelocytes andmetamyelocytes) > 1% indicates that a LEFT SHIFT is Present. Performed By: #### L 100.0100 ####[facility] [address] [place], [address] Lymphocytes/100 WBC (Bld) 7.7 % Low 19-41 [facility] Comment on above: Performed By: #### L 100.0100 ####[facility] [address] [place], [address] MCH (RBC) [Entitic mass] 27.4 pg Normal 27.0-32.0 [facility] Comment on above: Performed By: #### L 100.0100 ####[facility] [address] [place], [address] MCHC (RBC) [Mass/Vol] 30.9 g/dL Low 32-36 [facility] Comment on above: Performed By: #### L 100.0100 ####[facility] [address] [place], [address] MCV (RBC) [Entitic vol] 88.8 fL Normal 81-[address] [facility] Comment on above: Performed By: #### L 100.0100 ####[facility] [address] [place], [address] Monocytes/100 WBC (Bld) 3.5 % Normal 0-[address] [facility] Comment on above: Performed By: #### L 100.0100 ####[facility] [address] [place], [address] Neutrophils/100 WBC (Bld) 88.4 % High 47-70 [facility] Comment on above: Performed By: #### L 100.0100 ####[facility] [address] [place], [address] Nucleated RBC (Bld) [#/Vol] 0 10*3/uL Normal 0-5 [facility] Comment on above: Performed By: #### L 100.0100 ####[facility] [address] [place], [address] Platelet mean volume (Bld) [Entitic vol] 11.0 fL Normal 6.2-12.0 [facility] Comment on above: Performed By: #### L 100.0100 ####[facility] [address] [place], [address] Platelets (Bld) [#/Vol] 245 10*3/uL Normal 150-450 [facility] Comment on above: Performed By: #### L 100.0100 ####[facility] [address] [place], [address] RBC (Bld) [#/Vol] 3.94 10*6/uL Low 4.2-5.4 [facility] Comment on above: Performed By: #### L 100.0100 ####[facility] [address] [place], [address] RDW SD 51.8 fl High 35.1-43.9 [facility] Comment on above: Performed By: #### L 100.0100 ####[facility] [address] [place], [address] WBC (Bld) [#/Vol] 10.3 10*3/uL Normal 4.4-11.0 [facility] Comment on above: Performed By: #### L 100.0100 ####[facility] [address] [place], [address] Chest 1 View (Portable)on Chest 1 View (Portable) Normal [facility] L503.7505on 01-21-2025 Natriuretic peptide B (Bld) [Mass/Vol] 54540 pg/mL High <=1800 [facility] Comment on above: Result Comment: Hear t Failure Unlikely: < 300 pg/mLHeart Failure Likely< 50 Years: > 450 pg/mL50-75 Years: > 900 pg/mL>75 Years: > 1800 pg/mL Performed By: #### L 503.7505, L500.2500 ####[facility] [address] [place], [address] Natriuretic peptide.B prohor hayley N-Terminal [Mass/volume] in Serum or PlasmaOrdered By: Sandeep Marie on 01-21-2025 Natriuretic peptide.B prohormone N-Terminal [Mass/Vol] 45032 pg/mL High <1800 [facility] 12 Lead EKGon 01-20-2025 12 Lead EKG Normal [facility] Activated partial thrombopla stin time (aPTT) in platelet poor plasma by coagulation aOrdered By: Jeevan Yoder on 01-20-2025 aPTT Coag (PPP) [Time] 26.9 s 24.1-36.2 [facility] Assessment of wrist artery p atency prior to arterial punctureOrdered By: Lucio Borden on 01-20-2025 Arterial patency Wrist artery --pre arterial puncture Positive [facility] Bedside Glucoseon 01-20-2025 FINGERSTICK GLU 265 mg/dL High 74-106 [facility] Comment on above: Result Comment: KATARINA GEMENT OF PATIENT CARE PER NURSING PROTOCOL Performed By: #### L 501.080 ####[facility] [address] [place], [address] FINGERSTICK GLU 389 mg/dL High 74-106 [facility] Comment on above: Result Comment: KATARINA GEMENT OF PATIENT CARE PER NURSING PROTOCOL Performed By: #### L 501.080 ####[facility] [address] [place], [address] FINGERSTICK GLU 361 mg/dL High 74-106 [facility] Comment on above: Result Comment: KATARINA GEMENT OF PATIENT CARE PER NURSING PROTOCOL Performed By: #### L 501.080 ####[facility] [address] [place], [address] FINGERSTICK GLU 338 mg/dL High 74-106 [facility] Comment on above: Result Comment: KATARINA GEMENT OF PATIENT CARE PER NURSING PROTOCOL Performed By: #### L 501.080 ####[facility] [address] [place], [address] Bilirubin Test strip Ql (U)O rdered By: Jeevan Yoder on 01-20-2025 Bilirubin Ql (U) Negative Negative [facility] Bilirubin, totalOrdered By: Jeevan Yoder on 01-20-2025 Bilirubin [Mass/Vol] 0.26 mg/dL 0.00-1.30 [facility] Blood Gases by [facility] SANITARIUMon 025 BARON TEST Positive Normal [facility] Comment on above: Performed By: #### L 9000.0800 ####[facility] [address] [place], [address] Base excess Calc (Bld) [Moles/Vol] 10 mmol/L High -2 to +2 [facility] Comment on above: Performed By: #### L 9000.0800 ####[facility] [address] [place], [address] Blood Gas Type ART Normal [facility] Comment on above: Performed By: #### L 9000.0800 ####[facility] [address] [place], [address] CO2 [Moles/Vol] 37 mmol/L Normal [facility] Comment on above: Performed By: #### L 9000.0800 ####[facility] [address] [place], [address] FI02 30.0 Normal [facility] Comment on above: Performed By: #### L 9000.0800 ####[facility] [address] [place], [address] HCO3 (Bld) [Moles/Vol] 35.5 mmol/L High 22-[address] [facility] Comment on above: Performed By: #### L 9000.0800 ####[facility] [address] [place], [address] Normal [facility] [facility] Comment on above: Performed By: #### L 9000.0800 ####[facility] [address] [place], [address] O2 Delivery Dev BiPAP Normal [facility] Comment on above: Performed By: #### L 9000.0800 ####[facility] [address] [place], [address] pCO2 59.4 mmHg High 35-45 [facility] Comment on above: Performed By: #### L 0.0800 ####[facility] [address] [place], [address] PEEP 8 Normal [facility] Comment on above: Performed By: #### L 9000.0800 ####[facility] [address] [place], [address] pH (Bld) 7.38 [pH] Normal 7.35-7.45 [facility] Comment on above: Performed By: #### L 8999.0800 ####[facility] [address] [place], [address] PO2 21 mmHG Invalid Interpretation Code 75-100 [facility] Comment on above: Performed By: #### L 900.0800 ####[facility] [address] [place], [address] Read Back By Yes Normal [facility] Comment on above: Performed By: #### L 0.0800 ####[facility] [address] [place], [address] Results To tereletsky Normal [facility] Comment on above: Performed By: #### L 9000.0800 ####[facility] [address] [place], [address] RR 14 Normal [facility] Comment on above: Performed By: #### L 9000.0800 ####[facility] [address] [place], [address] SITE R Radial Normal [facility] Comment on above: Performed By: #### L 9000.0800 ####[facility] [address] [place], [address] SO2 32 Low 95-99 [facility] Comment on above: Performed By: #### L 9000.0800 ####[facility] [address] [place], [address] Time Given 16:55:40 [facility] Comment on above: Performed By: #### L 9000.0800 ####[facility] [address] [place], [address] Vt 500.0 mL Normal [facility] Comment on above: Performed By: #### L 9000.0800 ####[facility] [address] [place], [address] BARON TEST Positive Normal [facility] Comment on above: Performed By: #### L 9000.0800 ####[facility] [address] [place], [address] Base excess Calc (Bld) [Moles/Vol] 5 mmol/L High -2 to +2 [facility] Comment on above: Performed By: #### L 9000.0800 ####[facility] [address] [place], [address] Blood Gas Type ART Normal [facility] Comment on above: Performed By: #### L 9000.0800 ####[facility] [address] [place], [address] CO2 [Moles/Vol] 33 mmol/L [facility] Comment on above: Performed By: #### L 9000.0800 ####[facility] [address] [place], [address] FI02 30.0 [facility] Comment on above: Performed By: #### L 9000.0800 ####[facility] [address] [place], [address] HCO3 (Bld) [Moles/Vol] 30.8 mmol/L High 22-[address] [facility] Comment on above: Performed By: #### L 9000.0800 ####[facility] [address] [place], [address] Mode Not entered [facility] Comment on above: Performed By: #### L 9000.0800 ####[facility] [address] [place], [address] O2 Delivery Dev BiPAP [facility] Comment on above: Performed By: #### L 9000.0800 ####[facility] [address] [place], [address] pCO2 56.2 mmHg High 35-45 [facility] Comment on above: Performed By: #### L 9000.0800 ####[facility] [address] [place], [address] PEEP 8 Normal [facility] Comment on above: Performed By: #### L 9000.0800 ####[facility] [address] [place], [address] pH (Bld) 7.35 [pH] Normal 7.35-7.45 [facility] Comment on above: Performed By: #### L 9000.0800 ####[facility] [address] [place], [address] PO2 37 mmHG Invalid Interpretation Code 75-100 [facility] Comment on above: Performed By: #### L 0.0800 ####[facility] [address] [place], [address] Read Back By Yes Normal [facility] Comment on above: Performed By: #### L 0.0800 ####[facility] [address] [place], [address] RR 14 Normal [facility] Comment on above: Performed By: #### L 0.0800 ####[facility] [address] [place], [address] SITE R Radial Normal [facility] Comment on above: Performed By: #### L 0.0800 ####[facility] [address] [place], [address] SO2 66 Low 95-99 [facility] Comment on above: Performed By: #### L 8999.0800 ####[facility] [address] [place], [address] Vt 500.0 mL Normal [facility] Comment on above: Performed By: #### L 0.0800 ####[facility] [address] [place], [address] BARON TEST Positive Normal [facility] Comment on above: Performed By: #### L 9000.0800 ####[facility] [address] [place], [address] Base excess Calc (Bld) [Moles/Vol] 5 mmol/L High -2 to +2 [facility] Comment on above: Performed By: #### L 9000.0800 ####[facility] [address] [place], [address] Blood Gas Type ART Normal [facility] Comment on above: Performed By: #### L 8999.0800 ####[facility] [address] [place], [address] CO2 [Moles/Vol] 34 mmol/L Normal [facility] Comment on above: Performed By: #### L 8999.0800 ####[facility] [address] [place], [address] Comment Normal [facility] Comment on above: Result Comment: AVAP S 500vt 14rr 100% +8 maxP=26 minP=18 Performed By: #### L 0.0800 ####[facility] [address] [place], [address] FI02 100.0 Normal [facility] Comment on above: Performed By: #### L 0.0800 ####[facility] [address] [place], [address] HCO3 (Bld) [Moles/Vol] 31.6 mmol/L High 22-[address] [facility] Comment on above: Performed By: #### L 8999.0800 ####[facility] [address] [place], [address] Mode Not entered Normal [facility] Comment on above: Performed By: #### L 0.0800 ####[facility] [address] [place], [address] O2 Delivery Dev BiPAP Normal [facility] Comment on above: Performed By: #### L 8999.0800 ####[facility] [address] [place], [address] pCO2 63.0 mmHg High 35-45 [facility] Comment on above: Performed By: #### L 0.0800 ####[facility] [address] [place], [address] pH (Bld) 7.31 [pH] Low 7.35-7.45 [facility] Comment on above: Performed By: #### L 9000.0800 ####[facility] [address] [place], [address] PO2 83 mmHG Normal 75-100 [facility] Comment on above: Performed By: #### L 9000.0800 ####[facility] [address] [place], [address] SITE R Radial Normal [facility] Comment on above: Performed By: #### L 9000.0800 ####[facility] [address] [place], [address] SO2 95 Normal 95-99 [facility] Comment on above: Performed By: #### L 9000.0800 ####[facility] [address] [place], [address] Blood base excess determinat ionOrdered By: Lucio Borden on 01-20-2025 Base excess Calc (BldV) [Moles/Vol] 10 mmol/L High --2 [facility] Blood bicarbonate measuremen tOrdered By: Lucio Borden on 01-20-2025 HCO3 (Bld) [Moles/Vol] 35.5 mmol/L High 22-[address] [facility] Blood cultureOrdered By: Mikey Marie on 01-20-2025 Bacteria identified Cx Nom (Bld) No growth in 5 days. [facility] Blood cultureOrdered By: Maeve Yoder on 01-20-2025 Bacteria identified Cx Nom (Bld) No growth in 5 days. [facility] Bacteria identified Cx Nom (Bld) No growth in 5 days. [facility] CBC W/Diff, Automatedon 12-30 Absolute Lymph 4.62 X10 3/uL High 0.83-4.51 [facility] Comment on above: Performed By: #### L 300.4310, L100.0100, L300.3900, L501.4021, L503.6005, L500.4050, M200.1000 ####[facility] [address] [place], [address] Absolute Neut 8.4 X10 3/uL High 2.0-7.7 [facility] Comment on above: Performed By: #### L 300.4310, L100.0100, L300.3900, L501.4021, L503.6005, L500.4050, M200.1000 ####[facility] [address] [place], [address] Basophils/100 WBC (Bld) 0.6 % Normal 0-[address] [facility] Comment on above: Performed By: #### L 300.4310, L100.0100, L300.3900, L501.4021, L503.6005, L500.4050, M200.1000 ####[facility] [address] [place], [address] Eosinophils/100 WBC (Bld) 0.8 % Normal 0-5 [facility] Comment on above: Performed By: #### L 300.4310, L100.0100, L300.3900, L501.4021, L503.6005, L500.4050, M200.1000 ####[facility] [address] [place], [address] Erythrocyte distribution width (RBC) [Ratio] 16.0 % High 11.6-14.6 [facility] Comment on above: Performed By: #### L 300.4310, L100.0100, L300.3900, L501.4021, L503.6005, L500.4050, M200.1000 ####[facility] [address] [place], [address] Hematocrit (Bld) [Volume fraction] 39.6 % Normal 37-47 [facility] Comment on above: Performed By: #### L 300.4310, L100.0100, L300.3900, L501.4021, L503.6005, L500.4050, M200.1000 ####[facility] [address] [place], [address] Hemoglobin (Bld) [Mass/Vol] 12.1 g/dL Normal 12.0-15.0 [facility] Comment on above: Performed By: #### L 300.4310, L100.0100, L300.3900, L501.4021, L503.6005, L500.4050, M200.1000 ####[facility] [address] [facility] [place], [address] IG% 0.500 Normal 0.0-0.9 [facility] Comment on above: Result Comment: IG% - Immature Granulocytes (promyelocytes, myelocytes andmetamyelocytes) > 1% indicates that a LEFT SHIFT is Present. Performed By: #### L 300.4310, L100.0100, L300.3900, L501.4021, L503.6005, L500.4050, M200.1000 ####[facility] [address] [facility] [place], [address] Lymphocytes/100 WBC (Bld) 32.0 % Normal 19-41 [facility] Comment on above: Performed By: #### L 300.4310, L100.0100, L300.3900, L501.4021, L503.6005, L500.4050, M200.1000 ####[facility] [address] [facility] [place], [address] MCH (RBC) [Entitic mass] 27.4 pg Normal 27.0-32.0 [facility] Comment on above: Performed By: #### L 300.4310, L100.0100, L300.3900, L501.4021, L503.6005, L500.4050, M200.1000 ####[facility] [address] [place], [address] MCHC (RBC) [Mass/Vol] 30.6 g/dL Low 32-36 [facility] Comment on above: Performed By: #### L 300.4310, L100.0100, L300.3900, L501.4021, L503.6005, L500.4050, M200.1000 ####[facility] [address] [place], [address] MCV (RBC) [Entitic vol] 89.8 fL Normal 81-[address] [facility] Comment on above: Performed By: #### L 300.4310, L100.0100, L300.3900, L501.4021, L503.6005, L500.4050, M200.1000 ####[facility] [address] [place], [address] Monocytes/100 WBC (Bld) 7.7 % Normal 0-10 [facility] Comment on above: Performed By: #### L 300.4310, L100.0100, L300.3900, L501.4021, L503.6005, L500.4050, M200.1000 ####[facility] [address] [place], [address] Neutrophils/100 WBC (Bld) 58.4 % Normal 47-70 [facility] Comment on above: Performed By: #### L 300.4310, L100.0100, L300.3900, L501.4021, L503.6005, L500.4050, M200.1000 ####[facility] [address] [place], [address] Nucleated RBC (Bld) [#/Vol] 0 10*3/uL Normal 0-5 [facility] Comment on above: Performed By: #### L 300.4310, L100.0100, L300.3900, L501.4021, L503.6005, L500.4050, M200.1000 ####[facility] [address] [place], [address] Platelet mean volume (Bld) [Entitic vol] 12.0 fL Normal 6.2-12.0 [facility] Comment on above: Performed By: #### L 300.4310, L100.0100, L300.3900, L501.4021, L503.6005, L500.4050, M200.1000 ####[facility] [address] [place], [address] Platelets (Bld) [#/Vol] 287 10*3/uL Normal 150-450 [facility] Comment on above: Performed By: #### L 300.4310, L100.0100, L300.3900, L501.4021, L503.6005, L500.4050, M200.1000 ####[facility] [address] [place], [address] RBC (Bld) [#/Vol] 4.41 10*6/uL Normal 4.2-5.4 [facility] Comment on above: Performed By: #### L 300.4310, L100.0100, L300.3900, L501.4021, L503.6005, L500.4050, M200.1000 ####[facility] [address] [place], [address] RDW SD 52.7 fl High 35.1-43.9 [facility] Comment on above: Performed By: #### L 300.4310, L100.0100, L300.3900, L501.4021, L503.6005, L500.4050, M200.1000 ####[facility] [address] [place], [address] WBC (Bld) [#/Vol] 14.4 10*3/uL High 4.4-11.0 [facility] Comment on above: Performed By: #### L 300.4310, L100.0100, L300.3900, L501.4021, L503.6005, L500.4050, M200.1000 ####[facility] [address] [place], [address] CTA Chest W/WO Contraston CTA Chest W/WO Contrast Normal [facility] Calculated very low density lipoprotein (VLDL) cholesterol measurementOrdered By: Sandeep Marie on 01-20-2025 Calculated very low density lipoprotein (VLDL) cholesterol measurement 12 mg/dL 5-40 [facility] Comprehensive Metabolic Prof ilon 01-20-2025 Albumin [Mass/Vol] 3.6 g/dL Normal 3.4-4.8 [facility] Comment on above: Performed By: #### L 300.4310, L100.0100, L300.3900, L501.4021, L503.6005, L500.4050, M200.1000 ####[facility] [address] [place], [place], [address] Albumin/Globulin [Mass ratio] 0.9 {ratio} Normal 0.9-2.4 [facility] Comment on above: Performed By: #### L 300.4310, L100.0100, L300.3900, L501.4021, L503.6005, L500.4050, M200.1000 ####[facility] [address] [place], [address] ALK PHOS 143 U/L High 35-104 [facility] Comment on above: Performed By: #### L 300.4310, L100.0100, L300.3900, L501.4021, L503.6005, L500.4050, M200.1000 ####[facility] [address] [place], [address] ALT [Catalytic activity/Vol] 36 U/L High <=34 [facility] Comment on above: Performed By: #### L 300.4310, L100.0100, L300.3900, L501.4021, L503.6005, L500.4050, M200.1000 ####[facility] [address] [place], [address] AST [Catalytic activity/Vol] 81 U/L High <=31 [facility] Comment on above: Result Comment: Hemo lysis present, Results??could be affected.?? Performed By: #### L 300.4310, L100.0100, L300.3900, L501.4021, L503.6005, L500.4050, M200.1000 ####[facility] [address] [place], [address] Bilirubin [Mass/Vol] 0.26 mg/dL Normal 0.00-1.30 [facility] Comment on above: Performed By: #### L 300.4310, L100.0100, L300.3900, L501.4021, L503.6005, L500.4050, M200.1000 ####[facility] [address] [place], [address] BUN/CRE 8.1 RATIO Low 10-20 [facility] Comment on above: Performed By: #### L 300.4310, L100.0100, L300.3900, L501.4021, L503.6005, L500.4050, M200.1000 ####[facility] [address] [place], [address] Calcium [Mass/Vol] 10.2 mg/dL Normal 7.6-11.0 [facility] Comment on above: Performed By: #### L 300.4310, L100.0100, L300.3900, L501.4021, L503.6005, L500.4050, M200.1000 ####[facility] [address] [place], [address] Chloride [Moles/Vol] 97 mmol/L Low 98-108 [facility] Comment on above: Performed By: #### L 300.4310, L100.0100, L300.3900, L501.4021, L503.6005, L500.4050, M200.1000 ####[facility] [address] [place], [address] CO2 [Moles/Vol] 25.7 mmol/L Normal 21.0-32.0 [facility] Comment on above: Performed By: #### L 300.4310, L100.0100, L300.3900, L501.4021, L503.6005, L500.4050, M200.1000 ####[facility] [address] [place], [address] Creatinine [Mass/Vol] 1.24 mg/dL High 0.70-1.20 [facility] Comment on above: Performed By: #### L 300.4310, L100.0100, L300.3900, L501.4021, L503.6005, L500.4050, M200.1000 ####[facility] [address] [place], [address] ECRCL 34.84 ml/min Low 50-250 [facility] Comment on above: Performed By: #### L 300.4310, L100.0100, L300.3900, L501.4021, L503.6005, L500.4050, M200.1000 ####[facility] [address] [place], [address] GAP 15 Normal 5-15 [facility] Comment on above: Performed By: #### L 300.4310, L100.0100, L300.3900, L501.4021, L503.6005, L500.4050, M200.1000 ####[facility] [address] [place], [address] GFR/1.73 sq M.predicted among non-blacks MDRD (S/P/Bld) [Vol rate/Area] 44 mL/min/{1.73_m2} Low >60 [facility] Comment on above: Result Comment: mL/m in/1.73m2 CKD-EPI Creatinine Equation (2020) Performed By: #### L 300.4310, L100.0100, L300.3900, L501.4021, L503.6005, L500.4050, M200.1000 ####[facility] [address] [place], [address] Globulin (S) [Mass/Vol] 4.1 g/dL Normal 2.2-4.2 [facility] Comment on above: Performed By: #### L 300.4310, L100.0100, L300.3900, L501.4021, L503.6005, L500.4050, M200.1000 ####[facility] [address] [place], [address] Glucose [Mass/Vol] 347 mg/dL High 70-99 [facility] Comment on above: Performed By: #### L 300.4310, L100.0100, L300.3900, L501.4021, L503.6005, L500.4050, M200.1000 ####[facility] [address] [place], [address] Potassium [Moles/Vol] 4.0 mmol/L Normal 3.3-5.1 [facility] Comment on above: Result Comment: Hemo lysis present, Results??could be affected.?? Performed By: #### L 300.4310, L100.0100, L300.3900, L501.4021, L503.6005, L500.4050, M200.1000 ####[facility] [address] [place], [address] Sodium [Moles/Vol] 137 mmol/L Normal 133-145 [facility] Comment on above: Performed By: #### L 300.4310, L100.0100, L300.3900, L501.4021, L503.6005, L500.4050, M200.1000 ####[facility] [address] [place], [address] T PROT 7.6 g/dL Normal 5.9-8.4 [facility] Comment on above: Performed By: #### L 300.4310, L100.0100, L300.3900, L501.4021, L503.6005, L500.4050, M200.1000 ####[facility] [address], [address] Urea nitrogen [Mass/Vol] 10 mg/dL Normal 4-19 [facility] Comment on above: Performed By: #### L 300.4310, L100.0100, L300.3900, L501.4021, L503.6005, L500.4050, M200.1000 ####[facility] [address] [place], [address] Echo Completeon 01-20-2025 Echo Complete Normal [facility] Echocardiogram study reportO rdered By: Marcelina Soto on 01-20-2025 Study report [facility] Work Phone: Emergency Department Summary on 01-20-2025 Emergency Department Summary Normal [facility] H AND P Exam - Hospitaliston 01-20-2025 H&P Exam - Hospitalist Normal [facility] Hemoglobin A1con 01-20-2025 HbA1c (Bld) [Mass fraction] 10.6 % High <=5.6 [facility] Comment on above: Result Comment: Norm al < 5.7 % Prediabetic 5.7 - 6.4 % Diabetic >or= 6.5 % Please note range changes. Performed By: #### L 501.9985 ####[facility] [address] [place], [address] Hemoglobin A1c percentageOrd ered By: Sandeep Marie on 01-20-2025 HbA1c (Bld) [Mass fraction] 10.6 % High <5.7 [facility] Ketones Test strip Ql (U)Ord ered By: Jeevan Yoder on 01-20-2025 Ketones Ql (U) Negative Negative [facility] L499.0042on 01-20-2025 Trop T High Sen 71 ng/L Invalid Interpretation Code <=14 [facility] Comment on above: Result Comment: Crit ical Result(s) Called at:0237 by: EMA PATEL.??Results read back by same. Performed By: #### L 499.0042 ####[facility] [address] [place], [address] L499.0043on 01-20-2025 Trop T High Sen 94 ng/L Invalid Interpretation Code <=14 [facility] Comment on above: Order Comment: PT SUAREZ S NOT MADE IT TO ROOM YET FROM ER OF 409 Result Comment: Crit ical Result(s) Called at 0548: by: SHARONA ALVAREZ. ??Results read back by same. Performed By: #### L 499.0043 ####[facility] [address] [place], [address] L501.4021on 01-20-2025 Trop T High Sen 52 ng/L High <=14 [facility] Comment on above: Performed By: #### L 300.4310, L100.0100, L300.3900, L501.4021, L503.6005, L500.4050, M200.1000 ####[facility] [address] [place], [address] L503.7505on 01-20-2025 Natriuretic peptide B (Bld) [Mass/Vol] 9449 pg/mL High <=1800 [facility] Comment on above: Result Comment: Hear t Failure Unlikely: < 300 pg/mLHeart Failure Likely< 50 Years: > 450 pg/mL50-75 Years: > 900 pg/mL>75 Years: > 1800 pg/mL Performed By: #### L 501.9520, L503.7505, L500.4100 ####[facility] [address] [place], [address] LDL calc ser/plasOrdered By: Sandeep Marie on 01-20-2025 Cholesterol in LDL [Mass/Vol] 79 mg/dL [facility] Lactic Acidon 01-20-2025 Lactate [Moles/Vol] 1.7 mmol/L Normal 0.0-2.0 [facility] Comment on above: Performed By: #### L 503.6005 ####[facility] [address] [place], [address] Lactate [Moles/Vol] 2.0 mmol/L Normal 0.0-2.0 [facility] Comment on above: Order Comment: Comme nts: if result >2, system reflex orders 2nd test @ 4hrsY Result Comment: Crit ical Result(s) Called at 0615: by: SHARONA ALVAREZ. ??Results read back by same. Performed By: #### M 200.1000, L503.6005 ####[facility] [address] [place], [address] Lactate [Moles/Vol] 3.4 mmol/L Invalid Interpretation Code 0.0-2.0 [facility] Comment on above: Order Comment: Y Result Comment: Crit ical Result(s) Called at: 0116 by: E[facility].??Results read back by same. Performed By: #### L 300.4310, L100.0100, L300.3900, L501.4021, L503.6005, L500.4050, M200.1000 ####[facility] [address] [place], [address] Legionella Antigen Urineon 0 01-20-2025 LEGU Normal [facility] Comment on above: Performed By: #### M 300.7200, M300.4500 ####[facility] [address] [place], [address] Lipid Profileon 01-20-2025 CHOL:HDL 2.89 Normal [facility] Comment on above: Performed By: #### L 501.9520, L503.7505, L500.4100 ####[facility] [address] [place], [address] Cholesterol [Mass/Vol] 140 mg/dL Normal <=200 [facility] Comment on above: Result Comment: Chol esterol level, Desirable <200 mg/dLBorderline high cholesterol 200-239 mg/dLHigh cholesterol >=240 mg/dLRecommendations of the NCEP Adult Treatment Panel for thefollowing risk-cutoff thresholds for the [place] [facility]. Performed By: #### L 501.9520, L503.7505, L500.4100 ####[facility] [address] [place], [address] Cholesterol in HDL [Mass/Vol] 49 mg/dL Normal [facility] Comment on above: Result Comment: Camelia onal Cholesterol Education Program (NCEP) guidelines:<40 mg/dL: Low HDL-cholesterol (major risk factor for CHD)>= 60 mg/dL: High HDL-cholesterol (negative risk factor forCHD)HDL-cholesterol is affected by a number of factors, e.g.smoking, exercise, hormones, sex and age. Performed By: #### L 501.9520, L503.7505, L500.4100 ####[facility] [address] [place], [address] Cholesterol in LDL [Mass/Vol] 79 mg/dL Normal [facility] Comment on above: Result Comment: Bord empkoz=518-606 mg/dL Higher Yfad=148 mg/dL or greater Performed By: #### L 501.9520, L503.7505, L500.4100 ####[facility] [address] [place], [address] Cholesterol in VLDL [Mass/Vol] 12 mg/dL Normal 5-40 [facility] Comment on above: Performed By: #### L 501.9520, L503.7505, L500.4100 ####[facility] [address] [place], [address] Triglyceride [Mass/Vol] 62 mg/dL Normal [facility] Comment on above: Result Comment: The drugs N-Acetylcysteine and Metamizole may falselydepress this assay.Normal range: <150 mg/dLBorderline High: 150-199 mg/dLHigh: 200-499 mg/dLVery High: >500 mg/dL Performed By: #### L 501.9520, L503.7505, L500.4100 ####[facility] [address] [place], [address] Measurement, pHOrdered By: Connor Borden on 01-20-2025 pH (Unsp spec) 7.38 [pH] 7.35-7.45 [facility] Mucus LM Ql (Urine sed)Order ed By: Jeevan Yoder on 01-20-2025 Mucus Ql (Urine sed) 0 SEEN /hpf [facility] Nitrite Test strip Ql (U)Ord ered By: Jeevan Yoder on 01-20-2025 Nitrite Ql (U) Negative Negative [facility] No Panel InformationOrdered By: Lucio Borden on 01-20-2025 ART [facility] R Radial [facility] ST [facility] BiPAP [facility] 500.0 mL [facility] 14 [facility] 8 [facility] 16:55:40 [facility] Yes [facility] No Panel InformationOrdered By: Jeevan Yoder on 01-20-2025 See comment [facility] 81 U/L High <32 [facility] Partial Thromboplast Timeon 01-20-2025 aPTT Coag (Bld) [Time] 26.9 s Normal 24.1-36.2 [facility] Comment on above: Performed By: #### L 300.4310, L100.0100, L300.3900, L501.4021, L503.6005, L500.4050, M200.1000 ####[facility] [address] [place], [address] Protein Test strip Ql (U)Ord ered By: Jeevan Yoder on 01-20-2025 Protein Ql (U) 100 mg/dl High Negative [facility] Prothrombin Time w/INRon INR Coag (PPP) [Relative time] 1.1 {INR} Normal [facility] Comment on above: Performed By: #### L 300.4310, L100.0100, L300.3900, L501.4021, L503.6005, L500.4050, M200.1000 ####[facility] [address] [place], [address] PT Coag (PPP) [Time] 14.6 s Normal 11.7-14.9 [facility] Comment on above: Performed By: #### L 300.4310, L100.0100, L300.3900, L501.4021, L503.6005, L500.4050, M200.1000 ####[facility] [address] [place], [address] Prothrombin timeOrdered By: Jeevan Yoder on 01-20-2025 PT Coag (PPP) [Time] 14.6 s 11.7-14.9 [facility] RESPIRATORY PANEL MOLECULARo n 01-20-2025 RP PANEL Normal [facility] Comment on above: Performed By: #### M 100.638 ####[facility] [address] [place], [place], [address] Respiratory pathogens detect ion panel by molecular detection methodOrdered By: Sandeep Marie on 01-20-2025 Respiratory pathogens DNA and RNA panel BEBETO+probe (Resp) [facility] Serum globulin measurementOr dered By: Jeevan Yoder on 01-20-2025 Globulin (S) [Mass/Vol] 4.1 g/dL 2.2-4.[address] [facility] Serum or plasma alanine kelley otransferase (ALT) measurementOrdered By: Jeevan Yoder on 01-20-2025 ALT [Catalytic activity/Vol] 36 U/L High <35 [facility] Serum or plasma albumin melanie urement (mass/volume)Ordered By: Jeevan Yoder on 01-20-2025 Albumin [Mass/Vol] 3.6 g/dL 3.4-4.8 [facility] Serum or plasma albumin/glob ulin mass ratioOrdered By: Jeevan Yoder on 01-20-2025 Albumin/Globulin [Mass ratio] 0.9 {ratio} 0.9-2.4 [facility] Serum or plasma alkaline lissa sphatase measurementOrdered By: Jeevan Yoder on 01-20-2025 ALP [Catalytic activity/Vol] 143 U/L High 35-104 [facility] Serum or plasma cholesterol in HDL measurement (mass/volume)Ordered By: Sandeep Marie on 01-20-2025 Cholesterol in HDL [Mass/Vol] 49 mg/dL >40 [facility] Serum or plasma cholesterol measurement (mass/volume)Ordered By: Sandeep Marie on 01-20-2025 Cholesterol [Mass/Vol] 140 mg/dL <201 [facility] Squamous epithelial cells de tection in urine sediment by light microscopyOrdered By: Jeevan Yoder on 01-20-2025 Epithelial cells.squamous LM Ql (Urine sed) 5-10 SEEN /hpf 5-10 [facility] Strep pneumoniae Antig(UR,CS F)on 01-20-2025 STPAG Normal [facility] Comment on above: Performed By: #### M 300.5675, M300.7865 ####[facility] [address] [place], [address] TSH DL <= 0.005 mIU/L QnOrde red By: Sandeep Marie on 05-23-2025 TSH Qn 0.492 uIU/mL 0.300-4.200 [facility] Thyroid Stim Hormone (TSH)on 01-20-2025 TSH 0.492 uIU/mL Normal 0.300-4.200 [facility] Comment on above: Performed By: #### L 501.9520, L503.7505, L500.4100 ####[facility] [address] [place], [place], [address] Total carbon dioxide measure mentOrdered By: Lucio Borden on 01-20-2025 CO2 [Moles/Vol] 37 mmol/L [facility] Total proteinOrdered By: Maeve Yoder on 01-20-2025 Protein [Mass/Vol] 7.6 g/dL 5.9-8.4 [facility] Troponin T.cardiac [Mass/vol ume] in Serum or Plasma by High sensitivity methodOrdered By: Jeevan Yoder on 01-20-2025 Troponin T.cardiac High sensitivity method [Mass/Vol] 94 ng/L High <14 [facility] Troponin T.cardiac High sensitivity method [Mass/Vol] 71 ng/L High <14 [facility] Troponin T.cardiac High sensitivity method [Mass/Vol] 52 ng/L High <14 [facility] Urinalysis, Completeon 01-20 EPI,SQUAMOUS 5-10 SEEN Normal 5-10 [facility] Comment on above: Order Comment: COLLE CTOR TO SPECIFY Performed By: #### L 400.0001 ####[facility] [address] [place], [address] RBC 5-10 SEEN Normal 0-5 [facility] Comment on above: Order Comment: COLLE CTOR TO SPECIFY Performed By: #### L 400.0001 ####[facility] [address] [place], [address] WBC 0-5 SEEN Normal 0-5 [facility] Comment on above: Order Comment: COLLE CTOR TO SPECIFY Performed By: #### L 400.0001 ####[facility] [address] [place], [address] BACTERIA 0 SEEN Normal None Seen [facility] Comment on above: Order Comment: MARSHALL CTOR TO SPECIFY Performed By: #### L 400.0001 ####[facility] [address] [place], [place], [address] Mucus Ql (Urine sed) 0 SEEN Normal [facility] Comment on above: Order Comment: MARSHALL CTOR TO SPECIFY Performed By: #### L 400.0001 ####[facility] [address] [place], [place], [address] Urine Legionella pneumophila antigen detectionOrdered By: Sandeep Marie on 01-20-2025 L. pneumophila Ag Ql (U) [facility] Urine clarityOrdered By: Maeve Yoder on 01-20-2025 Clarity (U) Clear Clear [facility] Urine color determinationOrd ered By: Jeevan Yoder on 01-20-2025 Color (U) Straw Yellow [facility] Urine cultureOrdered By: Maeve Yoder on 01-20-2025 Bacteria identified Cx Nom (U) Proteus mirabilis Abnormal [facility] Urine glucose detectionOrder ed By: Jeevan Yoder on 01-20-2025 Glucose Ql (U) 1000 mg/dl High Normal [facility] Urine leukocyte esterase det ection by dipstickOrdered By: Jeevan Yoder on 01-20-2025 Leukocyte esterase Test strip Ql (U) Negative Negative [facility] Urine pHOrdered By: Jeevan rai on 01-20-2025 pH (U) 6.0 [pH] 5.0 - 8.0 [facility] Urine sediment bacteria coun t by microscopy (number/high power field)Ordered By: Jeevan Yoder on 01-20-2025 Bacteria LM.HPF (Urine sed) [#/Area] 0 /[HPF] None Seen [facility] Urine specific gravity measu rementOrdered By: Jeevan Yoder on 01-20-2025 Specific gravity (U) [Rel density] 1.010 1.002-1.030 [facility] Urine urobilinogen measureme ntOrdered By: Jeevan Yoder on 01-20-2025 Urobilinogen Ql (U) Normal mg/dl Normal [facility] White blood cell countOrdere d By: Jeevan Yoder on 01-20-2025 White blood cell count 0-5 SEEN /hpf 0-5 [facility] Anion gap in Serum or Plasma Ordered By: Ramone Smiley on 01-19-2025 Anion gap [Moles/Vol] 14 mmol/L 5-15 [facility] BUN/creatinine ratioOrdered By: Ramone Smiley on 01-19-2025 Urea nitrogen/Creatinine [Mass ratio] 7.7 mg/mg Low 10-20 [facility] Bilirubin, totalOrdered By: Ramone Smiley on 01-19-2025 Bilirubin [Mass/Vol] 0.25 mg/dL 0.00-1.30 [facility] CBC-Complete Blood Cnt No Di ffon 01-19-2025 Erythrocyte distribution width (RBC) [Ratio] 16.0 % High 11.6-14.6 [facility] Comment on above: Order Comment: Order Date: 01/19/25Order Info: [id number] - CBC Performed By: #### L 500.4050, L501.5200, L100.0500 ####[facility] [address] [place], [address] Hematocrit (Bld) [Volume fraction] 35.3 % Low 37-47 [facility] Comment on above: Order Comment: Order Date: 01/19/25Order Info: [id number] - CBC Performed By: #### L 500.4050, L501.5200, L100.0500 ####[facility] [address] [place], [address] Hemoglobin (Bld) [Mass/Vol] 10.9 g/dL Low 12.0-15.0 [facility] Comment on above: Order Comment: Order Date: 01/19/25Order Info: [id number] - CBC Performed By: #### L 500.4050, L501.5200, L100.0500 ####[facility] [address] [place], [address] MCH (RBC) [Entitic mass] 27.7 pg Normal 27.0-32.0 [facility] Comment on above: Order Comment: Order Date: 01/19/25Order Info: [id number] - CBC Performed By: #### L 500.4050, L501.5200, L100.0500 ####[facility] [address] [place], [address] MCHC (RBC) [Mass/Vol] 30.9 g/dL Low 32-36 [facility] Comment on above: Order Comment: Order Date: 01/19/25Order Info: [id number] - CBC Performed By: #### L 500.4050, L501.5200, L100.0500 ####[facility] [address] [place], [address] MCV (RBC) [Entitic vol] 89.6 fL Normal 81-[address] [facility] Comment on above: Order Comment: Order Date: 01/19/25Order Info: [id number] - CBC Performed By: #### L 500.4050, L501.5200, L100.0500 ####[facility] [address] [place], [address] Platelet mean volume (Bld) [Entitic vol] 11.6 fL Normal 6.2-12.0 [facility] Comment on above: Order Comment: Order Date: 01/19/25Order Info: [id number] - CBC Performed By: #### L 500.4050, L501.5200, L100.0500 ####[facility] [address] [place], [address] Platelets (Bld) [#/Vol] 253 10*3/uL Normal 150-450 [facility] Comment on above: Order Comment: Order Date: 01/19/25Order Info: [id number] - CBC Performed By: #### L 500.4050, L501.5200, L100.0500 ####[facility] [address] [place], [address] RBC (Bld) [#/Vol] 3.94 10*6/uL Low 4.2-5.4 [facility] Comment on above: Order Comment: Order Date: 01/19/25Order Info: [id number] - CBC Performed By: #### L 500.4050, L501.5200, L100.0500 ####[facility] [address] [place], [address] RDW SD 52.7 fl High 35.1-43.9 [facility] Comment on above: Order Comment: Order Date: 01/19/25Order Info: [id number] - CBC Performed By: #### L 500.4050, L501.5200, L100.0500 ####[facility] [address] [place], [address] WBC (Bld) [#/Vol] 8.3 10*3/uL Normal 4.4-11.0 [facility] Comment on above: Order Comment: Order Date: 01/19/25Order Info: [id number] - CBC Performed By: #### L 500.4050, L501.5200, L100.0500 ####[facility] [address] [place], [address] Carbon dioxide, total [Moles /volume] in Central venous bloodOrdered By: Ramone Smiley on 01-19-2025 CO2 [Moles/Vol] 27.2 mmol/L 21.0-32.0 [facility] Chloride assayOrdered By: Richar Smiley on 01-19-2025 Chloride [Moles/Vol] 96 mmol/L Low 98-108 [facility] Comprehensive Metabolic Prof ilon 01-19-2025 Albumin [Mass/Vol] 3.4 g/dL Normal 3.4-4.8 [facility] Comment on above: Order Comment: Order Date: 01/19/25Order Info: [id number] - CMPOrder Info: [id number] - MG Performed By: #### L 500.4050, L501.5200, L100.0500 ####[facility] [address] [place], [address] Albumin/Globulin [Mass ratio] 0.9 {ratio} Normal 0.9-2.4 [facility] Comment on above: Order Comment: Order Date: 01/19/25Order Info: [id number] - CMPOrder Info: [id number] - MG Performed By: #### L 500.4050, L501.5200, L100.0500 ####[facility] [address] [place], [address] ALK PHOS 123 U/L High 35-104 [facility] Comment on above: Order Comment: Order Date: 01/19/25Order Info: [id number] - CMPOrder Info: [id number] - MG Performed By: #### L 500.4050, L501.5200, L100.0500 ####[facility] [address] [place], [address] ALT [Catalytic activity/Vol] 18 U/L Normal <=34 [facility] Comment on above: Order Comment: Order Date: 01/19/25Order Info: [id number] - CMPOrder Info: [id number] - MG Performed By: #### L 500.4050, L501.5200, L100.0500 ####[facility] [address] [place], [address] AST [Catalytic activity/Vol] 25 U/L Normal <=31 [facility] Comment on above: Order Comment: Order Date: 01/19/25Order Info: [id number] - CMPOrder Info: [id number] - MG Performed By: #### L 500.4050, L501.5200, L100.0500 ####[facility] [address] [place], [address] Bilirubin [Mass/Vol] 0.25 mg/dL Normal 0.00-1.30 [facility] Comment on above: Order Comment: Order Date: 01/19/25Order Info: [id number] - CMPOrder Info: [id number] - MG Performed By: #### L 500.4050, L501.5200, L100.0500 ####[facility] [address] [place], [address] BUN/CRE 7.7 RATIO Low 10-20 [facility] Comment on above: Order Comment: Order Date: 01/19/25Order Info: [id number] - CMPOrder Info: [id number] - MG Performed By: #### L 500.4050, L501.5200, L100.0500 ####[facility] [address] [place], [address] Calcium [Mass/Vol] 10.4 mg/dL Normal 7.6-11.0 [facility] Comment on above: Order Comment: Order Date: 01/19/25Order Info: [id number] - CMPOrder Info: [id number] - MG Performed By: #### L 500.4050, L501.5200, L100.0500 ####[facility] [address] [place], [address] Chloride [Moles/Vol] 96 mmol/L Low 98-108 [facility] Comment on above: Order Comment: Order Date: 01/19/25Order Info: [id number] - CMPOrder Info: [id number] - MG Performed By: #### L 500.4050, L501.5200, L100.0500 ####[facility] [address] [place], [address] CO2 [Moles/Vol] 27.2 mmol/L Normal 21.0-32.0 [facility] Comment on above: Order Comment: Order Date: 01/19/25Order Info: [id number] - CMPOrder Info: [id number] - MG Performed By: #### L 500.4050, L501.5200, L100.0500 ####[facility] [address] [place], [address] Creatinine [Mass/Vol] 1.06 mg/dL Normal 0.70-1.20 [facility] Comment on above: Order Comment: Order Date: 01/19/25Order Info: [id number] - CMPOrder Info: [id number] - MG Performed By: #### L 500.4050, L501.5200, L100.0500 ####[facility] [address] [place], [address] GAP 14 Normal 5-15 [facility] Comment on above: Order Comment: Order Date: 01/19/25Order Info: [id number] - CMPOrder Info: [id number] - MG Performed By: #### L 500.4050, L501.5200, L100.0500 ####[facility] [address] [place], [address] GFR/1.73 sq M.predicted among non-blacks MDRD (S/P/Bld) [Vol rate/Area] 53 mL/min/{1.73_m2} Low >60 [facility] Comment on above: Order Comment: Order Date: 01/19/25Order Info: [id number] - CMPOrder Info: [id number] - MG Result Comment: mL/m in/1.73m2 CKD-EPI Creatinine Equation (2020) Performed By: #### L 500.4050, L501.5200, L100.0500 ####[facility] [address] [place], [address] Globulin (S) [Mass/Vol] 3.9 g/dL Normal 2.2-4.[address] [facility] Comment on above: Order Comment: Order Date: 01/19/25Order Info: [id number] - CMPOrder Info: [id number] - MG Performed By: #### L 500.4050, L501.5200, L100.0500 ####[facility] [address] [place], [address] Glucose [Mass/Vol] 288 mg/dL High 70-99 [facility] Comment on above: Order Comment: Order Date: 01/19/25Order Info: [id number] - CMPOrder Info: [id number] - MG Performed By: #### L 500.4050, L501.5200, L100.0500 ####[facility] [address] [place], [address] Potassium [Moles/Vol] 3.3 mmol/L Normal 3.3-5.1 [facility] Comment on above: Order Comment: Order Date: 01/19/25Order Info: [id number] - CMPOrder Info: [id number] - MG Performed By: #### L 500.4050, L501.5200, L100.0500 ####[facility] [address] [place], [address] Sodium [Moles/Vol] 137 mmol/L Normal 133-145 [facility] Comment on above: Order Comment: Order Date: 01/19/25Order Info: [id number] - CMPOrder Info: [id number] - MG Performed By: #### L 500.4050, L501.5200, L100.0500 ####[facility] [address] [place], [address] T PROT 7.3 g/dL Normal 5.9-8.4 [facility] Comment on above: Order Comment: Order Date: 01/19/25Order Info: [id number] - CMPOrder Info: [id number] - MG Performed By: #### L 500.4050, L501.5200, L100.0500 ####[facility] [address] [place], [address] Urea nitrogen [Mass/Vol] 8 mg/dL Normal 4-19 [facility] Comment on above: Order Comment: Order Date: 01/19/25Order Info: [id number] - CMPOrder Info: [id number] - MG Performed By: #### L 500.4050, L501.5200, L100.0500 ####[facility] [address] [place], [address] Erythrocyte distribution wid th ratioOrdered By: Ramone Smiley on 01-19-2025 Erythrocyte distribution width (RBC) [Ratio] 16.0 % High 11.6-14.6 [facility] Erythrocyte distribution wid th standard deviationOrdered By: Ramone Smiley on 01-19-2025 Erythrocyte distribution width (RBC) [Ratio] 52.7 fl High 35.1-43.9 [facility] Glomerular filtration rate ( GFR) estimation/1.73 sq m using serum, plasma, or whole bOrdered By: Ramone Smiley on 01-19-2025 GFR/1.73 sq M.predicted among non-blacks MDRD (S/P/Bld) [Vol rate/Area] 53 mL/min/{1.73_m2} Low >60 [facility] Hematocrit Auto (Bld) [Volum e fraction]Ordered By: Ramone Smiley on 01-19-2025 Hematocrit (Bld) [Volume fraction] 35.3 % Low 37-47 [facility] Hemoglobin measurementOrdere d By: Ramone Smiley on 01-19-2025 Hemoglobin (Bld) [Mass/Vol] 10.9 g/dL Low 12.0-15.0 [facility] L503.7505on 01-19-2025 Natriuretic peptide B (Bld) [Mass/Vol] 3173 pg/mL High <=1800 [facility] Comment on above: Order Comment: Order Date: 01/19/25Order Info: [id number] - CMPOrder Info: [id number] - MG Result Comment: Hear t Failure Unlikely: < 300 pg/mLHeart Failure Likely< 50 Years: > 450 pg/mL50-75 Years: > 900 pg/mL>75 Years: > 1800 pg/mL Performed By: #### L 503.7505 ####[facility] [address] [place], [place], [id number] MCV (mean corpuscular volume ) determinationOrdered By: Ramone Smiley on 01-19-2025 MCV (RBC) [Entitic vol] 89.6 fL 81-[address] [facility] Magnesiumon 01-19-2025 Magnesium [Mass/Vol] 2.3 mg/dL High 1.5-2.2 [facility] Comment on above: Order Comment: Order Date: 01/19/25Order Info: [id number] - CMPOrder Info: [id number] - MG Performed By: #### L 500.4050, L501.5200, L100.0500 ####[facility] [address] [place], [address] Magnesium measurement (mass/ volume)Ordered By: Ramone Smiley on 01-19-2025 Magnesium (Unsp spec) [Mass/Vol] 2.3 mg/dL High 1.5-2.2 [facility] Mean corpuscular hemoglobin (MCH) determinationOrdered By: Ramone Smiley on 01-19-2025 MCH (RBC) [Entitic mass] 27.7 pg 27.0-32.0 [facility] Natriuretic peptide.B prohor hayley N-Terminal [Mass/volume] in Serum or PlasmaOrdered By: Ramone Smiley on 01-19-2025 Natriuretic peptide.B prohormone N-Terminal [Mass/Vol] 3173 pg/mL High <1800 [facility] No Panel InformationOrdered By: Ramone Smiley on 01-19-2025 25 U/L <32 [facility] Platelet countOrdered By: Richar Smiley on 01-19-2025 Platelets (Bld) [#/Vol] 253 10*3/uL 150-450 [facility] Potassium measurement (mass/ volume)Ordered By: Ramone Smiley on 01-19-2025 Potassium (Unsp spec) [Mass/Vol] 3.3 mmol/L 3.3-5.1 [facility] RBC Auto (Bld) [#/Vol]Ordere d By: Ramone Smiley on 01-19-2025 RBC (Bld) [#/Vol] 3.94 10*6/uL Low 4.2-5.4 [facility] Serum creatinine measurement (mass/volume)Ordered By: Ramone Smiley on 01-19-2025 Creatinine [Mass/Vol] 1.06 mg/dL 0.70-1.20 [facility] Serum globulin measurementOr dered By: Ramone Smiley on 01-19-2025 Globulin (S) [Mass/Vol] 3.9 g/dL 2.2-4.[address] [facility] Serum glucose measurement (m ass/volume)Ordered By: Ramone Smiley on 01-19-2025 Glucose [Mass/Vol] 288 mg/dL High 70-99 [facility] Serum or plasma alanine kelley otransferase (ALT) measurementOrdered By: Ramone Smiley on 01-19-2025 ALT [Catalytic activity/Vol] 18 U/L <35 [facility] Serum or plasma albumin melanie urement (mass/volume)Ordered By: Ramone Smiley on 01-19-2025 Albumin [Mass/Vol] 3.4 g/dL 3.4-4.8 [facility] Serum or plasma albumin/glob ulin mass ratioOrdered By: Ramone Smiley on 01-19-2025 Albumin/Globulin [Mass ratio] 0.9 {ratio} 0.9-2.4 [facility] Serum or plasma alkaline lissa sphatase measurementOrdered By: Ramone Smiley on 01-19-2025 ALP [Catalytic activity/Vol] 123 U/L High 35-104 [facility] Serum or plasma calcium melanie urement (mass/volume)Ordered By: Ramone Smiley on 01-19-2025 Calcium [Mass/Vol] 10.4 mg/dL 7.6-11.0 [facility] Serum or plasma urea nitroge n measurement (mass/volume)Ordered By: Ramone Smiley on 01-19-2025 Urea nitrogen [Mass/Vol] 8 mg/dL 4-19 [facility] Sodium levelOrdered By: Ramone Smiley on 01-19-2025 Sodium [Moles/Vol] 137 mmol/L 133-145 [facility] Total proteinOrdered By: Lilliam Smiley on 01-19-2025 Protein [Mass/Vol] 7.3 g/dL 5.9-8.4 [facility] White blood cell (WBC) count Ordered By: Ramone Smiley on 01-19-2025 WBC (Bld) [#/Vol] 8.3 10*3/uL 4.4-11.0 [facility] 12 Lead EKGon 01-15-2025 12 Lead EKG Normal [facility] Absolute lymphocyte countOrd ered By: Jeevan Yoder on 01-15-2025 Lymphocytes Auto (Unsp spec) [#/Vol] 1.92 10*3/uL 0.83-4.51 [facility] Absolute neutrophil countOrd ered By: Jeevan Yoder on 01-15-2025 Neutrophils (Bld) [#/Vol] 7.7 10*3/uL 2.0-7.7 [facility] Anion gap in Serum or Plasma Ordered By: Jeevan Yoder on 01-15-2025 Anion gap [Moles/Vol] 11 mmol/L 5-15 [facility] Automated lymphocyte count a s percentage of total leukocytesOrdered By: Jeevan Yoder on 01-15-2025 Lymphocytes/100 WBC Auto (Unsp spec) 18.1 % Low 19-41 [facility] BUN/creatinine ratioOrdered By: Jeevan Yoder on 01-15-2025 Urea nitrogen/Creatinine [Mass ratio] 16.6 mg/mg 10- [facility] Basic Metabolic Profile (BMP )on 01-15-2025 BUN/CRE 16.6 RATIO Normal - [facility] Comment on above: Performed By: #### L 501.4021, L500.2500, L100.0100 ####[facility] [address] [place], [address] Calcium [Mass/Vol] 9.6 mg/dL Normal 7.6-11.0 [facility] Comment on above: Performed By: #### L 501.4021, L500.2500, L100.0100 ####[facility] [address] [place], [address] Chloride [Moles/Vol] 102 mmol/L Normal 98-108 [facility] Comment on above: Performed By: #### L 501.4021, L500.2500, L100.0100 ####[facility] [address] [place], [address] CO2 [Moles/Vol] 25.0 mmol/L Normal 21.0-32.0 [facility] Comment on above: Performed By: #### L 501.4021, L500.2500, L100.0100 ####[facility] [address] [place], [address] Creatinine [Mass/Vol] 0.92 mg/dL Normal 0.70-1.20 [facility] Comment on above: Performed By: #### L 501.4021, L500.2500, L100.0100 ####[facility] [address] [place], [address] ECRCL 48.84 ml/min Low 50-250 [facility] Comment on above: Performed By: #### L 501.4021, L500.2500, L100.0100 ####[facility] [address] [place], [address] GAP 11 Normal 5-15 [facility] Comment on above: Performed By: #### L 501.4021, L500.2500, L100.0100 ####[facility] [address] [place], [address] GFR/1.73 sq M.predicted among non-blacks MDRD (S/P/Bld) [Vol rate/Area] 63 mL/min/{1.73_m2} Normal >60 [facility] Comment on above: Result Comment: mL/m in/1.73m2 CKD-EPI Creatinine Equation (2020) Performed By: #### L 501.4021, L500.2500, L100.0100 ####[facility] [address] [place], [address] Glucose [Mass/Vol] 144 mg/dL High 70-99 [facility] Comment on above: Performed By: #### L 501.4021, L500.2500, L100.0100 ####[facility] [address] [place], [address] Potassium [Moles/Vol] 3.7 mmol/L Normal 3.3-5.1 [facility] Comment on above: Performed By: #### L 501.4021, L500.2500, L100.0100 ####[facility] [address] [place], [address] Sodium [Moles/Vol] 138 mmol/L Normal 133-145 [facility] Comment on above: Performed By: #### L 501.4021, L500.2500, L100.0100 ####[facility] [address] [place], [address] Urea nitrogen [Mass/Vol] 15 mg/dL Normal 4-19 [facility] Comment on above: Performed By: #### L 501.4021, L500.2500, L100.0100 ####[facility] [address] [place], [address] Basophil percentageOrdered B y: Jeevan Yoder on 01-15-2025 Basophils/100 WBC (Bld) 0.3 % 0-[address] [facility] CBC W/Diff, Automatedon 12-29 Absolute Lymph 1.92 X10 3/uL Normal 0.83-4.51 [facility] Comment on above: Performed By: #### L 501.4021, L500.2500, L100.0100 ####[facility] [address] [place], [address] Absolute Neut 7.7 X10 3/uL Normal 2.0-7.7 [facility] Comment on above: Performed By: #### L 501.4021, L500.2500, L100.0100 ####[facility] [address] [place], [address] Basophils/100 WBC (Bld) 0.3 % Normal 0-[address] [facility] Comment on above: Performed By: #### L 501.4021, L500.2500, L100.0100 ####[facility] [address] [place], [address] Eosinophils/100 WBC (Bld) 1.6 % Normal 0-5 [facility] Comment on above: Performed By: #### L 501.4021, L500.2500, L100.0100 ####[facility] [address] [place], [address] Erythrocyte distribution width (RBC) [Ratio] 16.3 % High 11.6-14.6 [facility] Comment on above: Performed By: #### L 501.4021, L500.2500, L100.0100 ####[facility] [address] [place], [address] Hematocrit (Bld) [Volume fraction] 34.3 % Low 37-47 [facility] Comment on above: Performed By: #### L 501.4021, L500.2500, L100.0100 ####[facility] [address] [place], [address] Hemoglobin (Bld) [Mass/Vol] 11.0 g/dL Low 12.0-15.0 [facility] Comment on above: Performed By: #### L 501.4021, L500.2500, L100.0100 ####[facility] [address] [place], [address] IG% 0.400 Normal 0.0-0.9 [facility] Comment on above: Result Comment: IG% - Immature Granulocytes (promyelocytes, myelocytes andmetamyelocytes) > 1% indicates that a LEFT SHIFT is Present. Performed By: #### L 501.4021, L500.2500, L100.0100 ####[facility] [address] [place], [address] Lymphocytes/100 WBC (Bld) 18.1 % Low 19-41 [facility] Comment on above: Performed By: #### L 501.4021, L500.2500, L100.0100 ####[facility] [address] [place], [address] MCH (RBC) [Entitic mass] 27.8 pg Normal 27.0-32.0 [facility] Comment on above: Performed By: #### L 501.4021, L500.2500, L100.0100 ####[facility] [address] [place], [address] MCHC (RBC) [Mass/Vol] 32.1 g/dL Normal 32-36 [facility] Comment on above: Performed By: #### L 501.4021, L500.2500, L100.0100 ####[facility] [address] [place], [address] MCV (RBC) [Entitic vol] 86.6 fL Normal 81-99 [facility] Comment on above: Performed By: #### L 501.4021, L500.2500, L100.0100 ####[facility] [address] [place], [address] Monocytes/100 WBC (Bld) 6.9 % Normal 0-10 [facility] Comment on above: Performed By: #### L 501.4021, L500.2500, L100.0100 ####[facility] [address] [place], [address] Neutrophils/100 WBC (Bld) 72.7 % High 47-70 [facility] Comment on above: Performed By: #### L 501.4021, L500.2500, L100.0100 ####[facility] [address] [place], [address] Nucleated RBC (Bld) [#/Vol] 0 10*3/uL Normal 0-5 [facility] Comment on above: Performed By: #### L 501.4021, L500.2500, L100.0100 ####[facility] [address] [place], [address] Platelet mean volume (Bld) [Entitic vol] 10.5 fL Normal 6.2-12.0 [facility] Comment on above: Performed By: #### L 501.4021, L500.2500, L100.0100 ####[facility] [address] [place], [address] Platelets (Bld) [#/Vol] 256 10*3/uL Normal 150-450 [facility] Comment on above: Performed By: #### L 501.4021, L500.2500, L100.0100 ####[facility] [address] [place], [address] RBC (Bld) [#/Vol] 3.96 10*6/uL Low 4.2-5.4 [facility] Comment on above: Performed By: #### L 501.4021, L500.2500, L100.0100 ####[facility] [address] [place], [address] RDW SD 50.8 fl High 35.1-43.9 [facility] Comment on above: Performed By: #### L 501.4021, L500.2500, L100.0100 ####[facility] [address] [place], [address] WBC (Bld) [#/Vol] 10.6 10*3/uL Normal 4.4-11.0 [facility] Comment on above: Performed By: #### L 501.4021, L500.2500, L100.0100 ####[facility] [address] [place], [address] Carbon dioxide, total [Moles /volume] in Central venous bloodOrdered By: Jeevan Yoder on 01-15-2025 CO2 [Moles/Vol] 25.0 mmol/L 21.0-32.0 [facility] Chest PA and Lateralon 01-15 Chest PA and Lateral Normal [facility] Chloride assayOrdered By: Kenny Yoder on 01-15-2025 Chloride [Moles/Vol] 102 mmol/L 98-108 [facility] Emergency Department Summary on 01-15-2025 Emergency Department Summary Normal [facility] Eosinophil percentageOrdered By: Jeevan Yoder on 01-15-2025 Eosinophils/100 WBC (Bld) 1.6 % 0-5 [facility] Erythrocyte distribution wid th ratioOrdered By: Jeevan Yoder on 01-15-2025 Erythrocyte distribution width (RBC) [Ratio] 16.3 % High 11.6-14.6 [facility] Erythrocyte distribution wid th standard deviationOrdered By: Jeevan Yoder on 01-15-2025 Erythrocyte distribution width (RBC) [Ratio] 50.8 fl High 35.1-43.9 [facility] Glomerular filtration rate ( GFR) estimation/1.73 sq m using serum, plasma, or whole bOrdered By: Jeevan Yoder on 01-15-2025 GFR/1.73 sq M.predicted among non-blacks MDRD (S/P/Bld) [Vol rate/Area] 63 mL/min/{1.73_m2} >60 [facility] Comment on above: mL/min/1.73m2 CKD-EP I Creatinine Equation (2020) Hematocrit Auto (Bld) [Volum e fraction]Ordered By: Jeevan Yoder on 01-15-2025 Hematocrit (Bld) [Volume fraction] 34.3 % Low 37-47 [facility] Hemoglobin measurementOrdere d By: Jeevan Yoder on 01-15-2025 Hemoglobin (Bld) [Mass/Vol] 11.0 g/dL Low 12.0-15.0 [facility] Immature granulocytes/100 WB C Auto (Bld)Ordered By: Jeevan Yoder on 01-15-2025 Immature granulocytes/100 WBC (Bld) 0.400 % 0.0-0.9 [facility] Comment on above: IG% - Immature Granu locytes (promyelocytes, myelocytes and metamyelocytes) > 1% indicates that a LEFT SHIFT is Present. L499.0042on 01-15-2025 Trop T High Sen 46 ng/L High <=14 [facility] Comment on above: Performed By: #### L 499.0042 ####[facility] [address] [place], [address] L499.0043on 01-15-2025 Trop T High Sen Normal <=14 [facility] Comment on above: Result Comment: DEP ED Performed By: #### L 499.0043 ####[facility] [address] [place], [address] L501.4021on 01-15-2025 Trop T High Sen 46 ng/L High <=14 [facility] Comment on above: Performed By: #### L 501.4021, L500.2500, L100.0100 ####[facility] [address] [place], [address] L503.7505on 01-15-2025 Natriuretic peptide B (Bld) [Mass/Vol] 4224 pg/mL High <=1800 [facility] Comment on above: Result Comment: Hear t Failure Unlikely: < 300 pg/mLHeart Failure Likely< 50 Years: > 450 pg/mL50-75 Years: > 900 pg/mL>75 Years: > 1800 pg/mL Performed By: #### L 503.7505 ####[facility] [address] [place], [address] MCV (mean corpuscular volume ) determinationOrdered By: Jeevan Yoder on 01-15-2025 MCV (RBC) [Entitic vol] 86.6 fL 81-99 [facility] Mean corpuscular hemoglobin (MCH) determinationOrdered By: Jeevan Yoder on 01-15-2025 MCH (RBC) [Entitic mass] 27.8 pg 27.0-32.0 [facility] Mean corpuscular hemoglobin concentration (MCHC) determinationOrdered By: Jeevan Yoder on 01-15-2025 MCHC (RBC) [Mass/Vol] 32.1 g/dL 32-36 [facility] Mean platelet volume determi nationOrdered By: Jeevan Yoder on 01-15-2025 Platelet mean volume (Bld) [Entitic vol] 10.5 fL 6.2-12.0 [facility] Monocyte percentageOrdered B y: Jeevan Yoder on 01-15-2025 Monocytes/100 WBC (Bld) 6.9 % 0-[address] [facility] Natriuretic peptide.B prohor hayley N-Terminal [Mass/volume] in Serum or PlasmaOrdered By: Jeevan Yoder on 01-15-2025 Natriuretic peptide.B prohormone N-Terminal [Mass/Vol] 4224 pg/mL High <1800 [facility] Comment on above: Heart Failure Unlike ly: < 300 pg/mLHeart Failure Likely< 50 Years: > 450 pg/mL50-75 Years: > 900 pg/mL>75 Years: > 1800 pg/mL Neutrophil percentageOrdered By: Jeevan Yoder on 01-15-2025 Neutrophils/100 WBC (Bld) 72.7 % High 47-70 [facility] Nucleated red blood cell per centageOrdered By: Jeevan Yoder on 01-15-2025 Nucleated RBC/100 WBC (Bld) [Ratio] 0 % 0-5 [facility] Platelet countOrdered By: Kenny Yoder on 01-15-2025 Platelets (Bld) [#/Vol] 256 10*3/uL 150-450 [facility] Potassium measurement (mass/ volume)Ordered By: Jeevan Yoder on 01-15-2025 Potassium (Unsp spec) [Mass/Vol] 3.7 mmol/L 3.3-5.1 [facility] RBC Auto (Bld) [#/Vol]Ordere d By: Jeevan Yoder on 01-15-2025 RBC (Bld) [#/Vol] 3.96 10*6/uL Low 4.2-5.4 [facility] Serum creatinine measurement (mass/volume)Ordered By: Jeevan Yoder on 01-15-2025 Creatinine [Mass/Vol] 0.92 mg/dL 0.70-1.20 [facility] Serum glucose measurement (m ass/volume)Ordered By: Jeevan Yoder on 01-15-2025 Glucose [Mass/Vol] 144 mg/dL High 70-99 [facility] Serum or plasma calcium melanie urement (mass/volume)Ordered By: Jeevan Yoder on 01-15-2025 Calcium [Mass/Vol] 9.6 mg/dL 7.6-11.0 [facility] Serum or plasma urea nitroge n measurement (mass/volume)Ordered By: Jeevan Yoder on 01-15-2025 Urea nitrogen [Mass/Vol] 15 mg/dL 4-19 [facility] Sodium levelOrdered By: Marcelino Yoder on 01-15-2025 Sodium [Moles/Vol] 138 mmol/L 133-145 [facility] Troponin T.cardiac [Mass/vol ume] in Serum or Plasma by High sensitivity methodOrdered By: Jeevan Yoder on 01-15-2025 Troponin T.cardiac High sensitivity method [Mass/Vol] 46 ng/L High <14 [facility] Troponin T.cardiac High sensitivity method [Mass/Vol] 46 ng/L High <14 [facility] White blood cell (WBC) count Ordered By: Jeevan Yoder on 01-15-2025 WBC (Bld) [#/Vol] 10.6 10*3/uL 4.4-11.0 [facility] 12 Lead EKGon 01-07-2025 12 Lead EKG Normal [facility] Absolute lymphocyte countOrd ered By: Ethan Suarez on 01-07-2025 Lymphocytes Auto (Unsp spec) [#/Vol] 2.89 10*3/uL 0.83-4.51 [facility] Absolute neutrophil countOrd ered By: Ethan Suarez on 01-07-2025 Neutrophils (Bld) [#/Vol] 5.3 10*3/uL 2.0-7.7 [facility] Anion gap in Serum or Plasma Ordered By: Ethan Suarez on 01-07-2025 Anion gap [Moles/Vol] 11 mmol/L 5- [facility] Automated lymphocyte count a s percentage of total leukocytesOrdered By: Ethan Suarez on 01-07-2025 Lymphocytes/100 WBC Auto (Unsp spec) 31.8 % 19-41 [facility] BUN/creatinine ratioOrdered By: Ethan Suarez on 01-07-2025 Urea nitrogen/Creatinine [Mass ratio] 15.5 mg/mg 10-20 [facility] Basic Metabolic Profile (BMP )on 01-07-2025 BUN/CRE 15.5 RATIO Normal - [facility] Comment on above: Performed By: #### L 500.2500, L100.0100 ####[facility] [address] [place], [address] Calcium [Mass/Vol] 10.3 mg/dL Normal 7.6-11.0 [facility] Comment on above: Performed By: #### L 500.2500, L100.0100 ####[facility] [address] [place], [address] Chloride [Moles/Vol] 99 mmol/L Normal 98-108 [facility] Comment on above: Performed By: #### L 500.2500, L100.0100 ####[facility] [address] [place], [address] CO2 [Moles/Vol] 22.5 mmol/L Normal 21.0-32.0 [facility] Comment on above: Performed By: #### L 500.2500, L100.0100 ####[facility] [address] [place], [address] Creatinine [Mass/Vol] 0.90 mg/dL Normal 0.70-1.20 [facility] Comment on above: Performed By: #### L 500.2500, L100.0100 ####[facility] [address] [place], [address] ECRCL 49.31 ml/min Low 50-250 [facility] Comment on above: Performed By: #### L 500.2500, L100.0100 ####[facility] [address] [place], [address] GAP 11 Normal 5-15 [facility] Comment on above: Performed By: #### L 500.2500, L100.0100 ####[facility] [address] [place], [address] GFR/1.73 sq M.predicted among non-blacks MDRD (S/P/Bld) [Vol rate/Area] 64 mL/min/{1.73_m2} Normal >60 [facility] Comment on above: Result Comment: mL/m in/1.73m2 CKD-EPI Creatinine Equation (2020) Performed By: #### L 500.2500, L100.0100 ####[facility] [address] [place], [address] Glucose [Mass/Vol] 321 mg/dL High 70-99 [facility] Comment on above: Performed By: #### L 500.2500, L100.0100 ####[facility] [address] [place], [address] Potassium [Moles/Vol] 3.8 mmol/L Normal 3.3-5.1 [facility] Comment on above: Result Comment: Hemo lysis present, Results??could be affected.?? Performed By: #### L 500.2500, L100.0100 ####[facility] [address] [place], [address] Sodium [Moles/Vol] 133 mmol/L Normal 133-145 [facility] Comment on above: Performed By: #### L 500.2500, L100.0100 ####[facility] [address] [place], [address] Urea nitrogen [Mass/Vol] 14 mg/dL Normal 4-19 [facility] Comment on above: Performed By: #### L 500.2500, L100.0100 ####[facility] [address] [place], [address] Basophil percentageOrdered B y: Ethan Le on 01-07-2025 Basophils/100 WBC (Bld) 0.5 % 0-[address] [facility] Bedside Glucoseon 05-10-2025 FINGERSTICK GLU 316 mg/dL High 74-106 [facility] Comment on above: Result Comment: KATARINA GARY OF PATIENT CARE PER NURSING PROTOCOL Performed By: #### L 501.080 ####[facility] [address] [place], [address] CBC W/Diff, Automatedon 05-1 0-2025 Absolute Lymph 2.89 X10 3/uL Normal 0.83-4.51 [facility] Comment on above: Performed By: #### L 500.2500, L100.0100 ####[facility] [address] [place], [address] Absolute Neut 5.3 X10 3/uL Normal 2.0-7.7 [facility] Comment on above: Performed By: #### L 500.2500, L100.0100 ####[facility] [address] [place], [address] Basophils/100 WBC (Bld) 0.5 % Normal 0-[address] [facility] Comment on above: Performed By: #### L 500.2500, L100.0100 ####[facility] [address] [place], [address] Eosinophils/100 WBC (Bld) 1.9 % Normal 0-5 [facility] Comment on above: Performed By: #### L 500.2500, L100.0100 ####[facility] [address] [place], [address] Erythrocyte distribution width (RBC) [Ratio] 15.7 % High 11.6-14.6 [facility] Comment on above: Performed By: #### L 500.2500, L100.0100 ####[facility] [address] [place], [address] Hematocrit (Bld) [Volume fraction] 34.0 % Low 37-47 [facility] Comment on above: Performed By: #### L 500.2500, L100.0100 ####[facility] [address] [place], [address] Hemoglobin (Bld) [Mass/Vol] 10.5 g/dL Low 12.0-15.0 [facility] Comment on above: Performed By: #### L 500.2500, L100.0100 ####[facility] [address] [place], [address] IG% 0.200 Normal 0.0-0.9 [facility] Comment on above: Result Comment: IG% - Immature Granulocytes (promyelocytes, myelocytes andmetamyelocytes) > 1% indicates that a LEFT SHIFT is Present. Performed By: #### L 500.2500, L100.0100 ####[facility] [address] [place], [address] Lymphocytes/100 WBC (Bld) 31.8 % Normal 19-41 [facility] Comment on above: Performed By: #### L 500.2500, L100.0100 ####[facility] [address] [place], [address] MCH (RBC) [Entitic mass] 26.9 pg Low 27.0-32.0 [facility] Comment on above: Performed By: #### L 500.2500, L100.0100 ####[facility] [address] [place], [address] MCHC (RBC) [Mass/Vol] 30.9 g/dL Low 32-36 [facility] Comment on above: Performed By: #### L 500.2500, L100.0100 ####[facility] [address] [place], [address] MCV (RBC) [Entitic vol] 87.0 fL Normal 81-[address] [facility] Comment on above: Performed By: #### L 500.2500, L100.0100 ####[facility] [address] [place], [address] Monocytes/100 WBC (Bld) 7.6 % Normal 0-[address] [facility] Comment on above: Performed By: #### L 500.2500, L100.0100 ####[facility] [address] [place], [address] Neutrophils/100 WBC (Bld) 58.0 % Normal 47-70 [facility] Comment on above: Performed By: #### L 500.2500, L100.0100 ####[facility] [address] [place], [address] Nucleated RBC (Bld) [#/Vol] 0 10*3/uL Normal 0-5 [facility] Comment on above: Performed By: #### L 500.2500, L100.0100 ####[facility] [address] [place], [address] Platelet mean volume (Bld) [Entitic vol] 11.1 fL Normal 6.2-12.0 [facility] Comment on above: Performed By: #### L 500.2500, L100.0100 ####[facility] [address] [place], [address] Platelets (Bld) [#/Vol] 237 10*3/uL Normal 150-450 [facility] Comment on above: Performed By: #### L 500.2500, L100.0100 ####[facility] [address] [place], [address] RBC (Bld) [#/Vol] 3.91 10*6/uL Low 4.2-5.4 [facility] Comment on above: Performed By: #### L 500.2500, L100.0100 ####[facility] [address] [place], [address] RDW SD 49.4 fl High 35.1-43.9 [facility] Comment on above: Performed By: #### L 500.2500, L100.0100 ####[facility] [address] [place], [address] WBC (Bld) [#/Vol] 9.1 10*3/uL Normal 4.4-11.0 [facility] Comment on above: Performed By: #### L 500.2500, L100.0100 ####[facility] [address] [place], [address] Carbon dioxide, total [Moles /volume] in Central venous bloodOrdered By: Ethan Suarez on 01-07-2025 CO2 [Moles/Vol] 22.5 mmol/L 21.0-32.0 [facility] Chest PA and Lateralon 01-07 Chest PA and Lateral Normal [facility] Chloride assayOrdered By: Albaro Suarez on 01-07-2025 Chloride [Moles/Vol] 99 mmol/L 98-108 [facility] Emergency Department Summary on 01-07-2025 Emergency Department Summary Normal [facility] Eosinophil percentageOrdered By: Ethan Suarez on 01-07-2025 Eosinophils/100 WBC (Bld) 1.9 % 0-5 [facility] Erythrocyte distribution wid th ratioOrdered By: Ethan Suarez on 01-07-2025 Erythrocyte distribution width (RBC) [Ratio] 15.7 % High 11.6-14.6 [facility] Erythrocyte distribution wid th standard deviationOrdered By: Ethan Suarez on 01-07-2025 Erythrocyte distribution width (RBC) [Ratio] 49.4 fl High 35.1-43.9 [facility] Glomerular filtration rate ( GFR) estimation/1.73 sq m using serum, plasma, or whole bOrdered By: Ethan Suarez on 01-07-2025 GFR/1.73 sq M.predicted among non-blacks MDRD (S/P/Bld) [Vol rate/Area] 64 mL/min/{1.73_m2} >60 [facility] Comment on above: mL/min/1.73m2 CKD-EP I Creatinine Equation (2020) [facility] deOrdered By: Ethan Suarez on 01-07-2025 Glucose [Mass/Vol] 316 mg/dL High 74-106 [facility] Comment on above: MANAGEMENT OF PATIEN T CARE PER NURSING PROTOCOL Hematocrit Auto (Bld) [Volum e fraction]Ordered By: Ethan Suarez on 01-07-2025 Hematocrit (Bld) [Volume fraction] 34.0 % Low 37-47 [facility] Hemoglobin measurementOrdere d By: Ethan Suarez on 01-07-2025 Hemoglobin (Bld) [Mass/Vol] 10.5 g/dL Low 12.0-15.0 [facility] Immature granulocytes/100 WB C Auto (Bld)Ordered By: Ethan Suarez on 01-07-2025 Immature granulocytes/100 WBC (Bld) 0.200 % 0.0-0.9 [facility] Comment on above: IG% - Immature Granu locytes (promyelocytes, myelocytes and metamyelocytes) > 1% indicates that a LEFT SHIFT is Present. Influenza virus A and B and SARS-CoV-2 (COVID-19) and Respiratory syncytial virus RNAOrdered By: Ethan Suarez on 01-07-2025 SARS-CoV-2 (COVID-19) RNA BEBETO+probe Ql (Unsp spec) [facility] M100.678on 01-07-2025 M100.678 SARS-CoV-2 (COVID 19 ) Negative INFLUENZA A Negative INFLUENZA B Negative RSV PCR Negative Normal [facility] Comment on above: Performed By: #### M 100.678 ####[facility] [address] [place], [place], [id number] MCV (mean corpuscular volume ) determinationOrdered By: Ethan Suarez on 01-07-2025 MCV (RBC) [Entitic vol] 87.0 fL 81-[address] [facility] Mean corpuscular hemoglobin (MCH) determinationOrdered By: Ethan Suarez on 01-07-2025 MCH (RBC) [Entitic mass] 26.9 pg Low 27.0-32.0 [facility] Mean corpuscular hemoglobin concentration (MCHC) determinationOrdered By: Ethan Suarez on 01-07-2025 MCHC (RBC) [Mass/Vol] 30.9 g/dL Low 32-36 [facility] Mean platelet volume determi nationOrdered By: Ethan Suarez on 01-07-2025 Platelet mean volume (Bld) [Entitic vol] 11.1 fL 6.2-12.0 [facility] Monocyte percentageOrdered B y: Ethan Suarez on 01-07-2025 Monocytes/100 WBC (Bld) 7.6 % 0-[address] [facility] Neutrophil percentageOrdered By: Ethan Suarez on 01-07-2025 Neutrophils/100 WBC (Bld) 58.0 % 47-70 [facility] Nucleated red blood cell per centageOrdered By: Ethan Suarez on 01-07-2025 Nucleated RBC/100 WBC (Bld) [Ratio] 0 % 0-5 [facility] Platelet countOrdered By: Albaro Suarez on 01-07-2025 Platelets (Bld) [#/Vol] 237 10*3/uL 150-450 [facility] Potassium measurement (mass/ volume)Ordered By: Ethan Suarez on 01-07-2025 Potassium (Unsp spec) [Mass/Vol] 3.8 mmol/L 3.3-5.1 [facility] Comment on above: Hemolysis present, R esults could be affected. RBC Auto (Bld) [#/Vol]Ordere d By: Ethan Suarez on 01-07-2025 RBC (Bld) [#/Vol] 3.91 10*6/uL Low 4.2-5.4 [facility] Serum creatinine measurement (mass/volume)Ordered By: Ethan Suarez on 01-07-2025 Creatinine [Mass/Vol] 0.90 mg/dL 0.70-1.20 [facility] Serum glucose measurement (m ass/volume)Ordered By: Ethan Suarez on 01-07-2025 Glucose [Mass/Vol] 321 mg/dL High 70-99 [facility] Serum or plasma calcium melanie urement (mass/volume)Ordered By: Ethan Suarez on 01-07-2025 Calcium [Mass/Vol] 10.3 mg/dL 7.6-11.0 [facility] Serum or plasma urea nitroge n measurement (mass/volume)Ordered By: Ethan Suarez on 01-07-2025 Urea nitrogen [Mass/Vol] 14 mg/dL 4-19 [facility] Sodium levelOrdered By: Ethan Suarez on 01-07-2025 Sodium [Moles/Vol] 133 mmol/L 133-145 [facility] White blood cell (WBC) count Ordered By: Ethan Suarez on 01-07-2025 WBC (Bld) [#/Vol] 9.1 10*3/uL 4.4-11.0 [facility] Inital Evaluation (1) - PTon 10-13-2024 Inital Evaluation (1) - PT Normal [facility] Albumin to globulin ratioOrd ered By: Ramone Smiley on 09-27-2024 Albumin/Globulin [Mass ratio] 0.6 {ratio} Low 0.9-2.4 [facility] Bilirubin, totalOrdered By: Ramone Smiley on 09-27-2024 Bilirubin [Mass/Vol] 0.20 mg/dL 0.20-1.00 [facility] Comment on above: For patients on eltr ombopag therapy, use of Dimension Pipestem TBIL is not recommended. Blood urea nitrogen (BUN)/cr eatinine ratioOrdered By: Ramone Smiley on 09-27-2024 Urea nitrogen/Creatinine [Mass ratio] 12.7 mg/mg 10-20 [facility] CBC-Complete Blood Cnt No Di ffon 09-27-2024 Erythrocyte distribution width (RBC) [Ratio] 15.9 % High 11.6-14.6 [facility] Comment on above: Order Comment: Order Date: 09/27/24Order Info: [id number] - CBC Performed By: #### L 500.4050, L100.0500 ####[facility] [address] [place], [address] Hematocrit (Bld) [Volume fraction] 35.7 % Low 37-47 [facility] Comment on above: Order Comment: Order Date: 09/27/24Order Info: [id number] - CBC Performed By: #### L 500.4050, L100.0500 ####[facility] [address] [place], [address] Hemoglobin (Bld) [Mass/Vol] 11.0 g/dL Low 12.0-15.0 [facility] Comment on above: Order Comment: Order Date: 09/27/24Order Info: [id number] - CBC Performed By: #### L 500.4050, L100.0500 ####[facility] [address] [place], [address] MCH (RBC) [Entitic mass] 25.8 pg Low 27.0-32.0 [facility] Comment on above: Order Comment: Order Date: 09/27/24Order Info: [id number] - CBC Performed By: #### L 500.4050, L100.0500 ####[facility] [address] [place], [address] MCHC (RBC) [Mass/Vol] 30.8 g/dL Low 32-36 [facility] Comment on above: Order Comment: Order Date: 09/27/24Order Info: [id number] - CBC Performed By: #### L 500.4050, L100.0500 ####[facility] [address] [place], [address] MCV (RBC) [Entitic vol] 83.6 fL Normal 81-[address] [facility] Comment on above: Order Comment: Order Date: 09/27/24Order Info: [id number] - CBC Performed By: #### L 500.4050, L100.0500 ####[facility] [address] [place], [address] Platelet mean volume (Bld) [Entitic vol] 11.3 fL Normal 6.2-12.0 [facility] Comment on above: Order Comment: Order Date: 09/27/24Order Info: [id number] - CBC Performed By: #### L 500.4050, L100.0500 ####[facility] [address] [place], [address] Platelets (Bld) [#/Vol] 287 10*3/uL Normal 150-450 [facility] Comment on above: Order Comment: Order Date: 09/27/24Order Info: [id number] - CBC Performed By: #### L 500.4050, L100.0500 ####[facility] [address] [place], [address] RBC (Bld) [#/Vol] 4.27 10*6/uL Normal 4.2-5.4 [facility] Comment on above: Order Comment: Order Date: 09/27/24Order Info: [id number] - CBC Performed By: #### L 500.4050, L100.0500 ####[facility] [address] [place], [address] RDW SD 47.4 fl High 35.1-43.9 [facility] Comment on above: Order Comment: Order Date: 09/27/24Order Info: [id number] - CBC Performed By: #### L 500.4050, L100.0500 ####[facility] [address] [place], [address] WBC (Bld) [#/Vol] 8.6 10*3/uL Normal 4.4-11.0 [facility] Comment on above: Order Comment: Order Date: 09/27/24Order Info: [id number] - CBC Performed By: #### L 500.4050, L100.0500 ####[facility] [address] [place], [address] Carbon dioxide measurementOr dered By: Ramone Smiley on 09-27-2024 CO2 [Moles/Vol] 28.0 mmol/L 21.0-32.0 [facility] Chloride measurementOrdered By: Ramone Smiley on 09-27-2024 Chloride [Moles/Vol] 101 mmol/L 98-107 [facility] Comprehensive Metabolic Prof ilon 09-27-2024 Albumin [Mass/Vol] 3.0 g/dL Low 3.2-5.0 [facility] Comment on above: Order Comment: Order Date: 09/27/24Order Info: [id number] - CMPOrder Info: [id number] - CRE Performed By: #### L 500.4050, L100.0500 ####[facility] [address] [place], [address] Albumin/Globulin [Mass ratio] 0.6 {ratio} Low 0.9-2.4 [facility] Comment on above: Order Comment: Order Date: 09/27/24Order Info: [id number] - CMPOrder Info: [id number] - CRE Performed By: #### L 500.4050, L100.0500 ####[facility] [address] [place], [address] ALK P 145 U/L High 45-117 [facility] Comment on above: Order Comment: Order Date: 09/27/24Order Info: [id number] - CMPOrder Info: [id number] - CRE Performed By: #### L 500.4050, L100.0500 ####[facility] [address] [place], [address] ALT [Catalytic activity/Vol] 16 U/L Normal 13-56 [facility] Comment on above: Order Comment: Order Date: 09/27/24Order Info: [id number] - CMPOrder Info: [id number] - CRE Performed By: #### L 500.4050, L100.0500 ####[facility] [address] [place], [address] AST [Catalytic activity/Vol] 16 U/L Normal 15-37 [facility] Comment on above: Order Comment: Order Date: 09/27/24Order Info: [id number] - CMPOrder Info: [id number] - CRE Performed By: #### L 500.4050, L100.0500 ####[facility] [address] [place], [address] Bilirubin [Mass/Vol] 0.20 mg/dL Normal 0.20-1.00 [facility] Comment on above: Order Comment: Order Date: 09/27/24Order Info: [id number] - CMPOrder Info: [id number] - CRE Result Comment: For patients on eltrombopag therapy, use of Dimension Pipestem TBIL is not recommended. Performed By: #### L 500.4050, L100.0500 ####[facility] [address] [place], [address] BUN/CRE 12.7 RATIO Normal 10-20 [facility] Comment on above: Order Comment: Order Date: 09/27/24Order Info: [id number] - CMPOrder Info: [id number] - CRE Performed By: #### L 500.4050, L100.0500 ####[facility] [address] [place], [address] CA,Total 11.0 mg/dL High 8.5-10.1 [facility] Comment on above: Order Comment: Order Date: 09/27/24Order Info: [id number]- - CMPOrder Info: [id number] - CRE Performed By: #### L 500.4050, L100.0500 ####[facility] [address] [place], [address] Chloride [Moles/Vol] 101 mmol/L Normal 98-107 [facility] Comment on above: Order Comment: Order Date: 09/27/24Order Info: [id number]- - CMPOrder Info: [id number] - CRE Performed By: #### L 500.4050, L100.0500 ####[facility] [address] [place], [address] CO2 [Moles/Vol] 28.0 mmol/L Normal 21.0-32.0 [facility] Comment on above: Order Comment: Order Date: 09/27/24Order Info: [id number] - CMPOrder Info: [id number] - CRE Performed By: #### L 500.4050, L100.0500 ####[facility] [address] [place], [address] Creatinine [Mass/Vol] 0.86 mg/dL Normal 0.55-1.02 [facility] Comment on above: Order Comment: Order Date: 09/27/24Order Info: [id number] - CMPOrder Info: [id number] - CRE Result Comment: The validity of the calculated GFR GFRAA in patients over70 years has not been determined. Clinical correlation isessential. Performed By: #### L 500.4050, L100.0500 ####[facility] [address] [place], [address] EST GFR - AA 81 mL/min Normal >60 [facility] Comment on above: Order Comment: Order Date: 09/27/24Order Info: [id number] - CMPOrder Info: [id number] - CRE Result Comment: Afri can Ecuadorean GFR Calc Performed By: #### L 500.4050, L100.0500 ####[facility] [address] [place], [address] GAP 8 Normal 5-15 [facility] Comment on above: Order Comment: Order Date: 09/27/24Order Info: [id number] - CMPOrder Info: [id number] - CRE Performed By: #### L 500.4050, L100.0500 ####[facility] [address] [place], [address] GFR/1.73 sq M.predicted among non-blacks MDRD (S/P/Bld) [Vol rate/Area] 67 mL/min/{1.73_m2} Normal >60 [facility] Comment on above: Order Comment: Order Date: 09/27/24Order Info: [id number] - CMPOrder Info: [id number] - CRE Result Comment: Non- GFR Calc Performed By: #### L 500.4050, L100.0500 ####[facility] [address] [place], [address] Globulin (S) [Mass/Vol] 5.0 g/dL High 2.2-4.[address] [facility] Comment on above: Order Comment: Order Date: 09/27/24Order Info: [id number] - CMPOrder Info: [id number] - CRE Performed By: #### L 500.4050, L100.0500 ####[facility] [address] [place], [address] Glucose [Mass/Vol] 144 mg/dL High 74-106 [facility] Comment on above: Order Comment: Order Date: 09/27/24Order Info: [id number] - CMPOrder Info: [id number] - CRE Result Comment: Fast ing Glucose result greater than or equal to 126 mg/dLsuggests DIABETES MELLITUS per A.D.A. criteria. Performed By: #### L 500.4050, L100.0500 ####[facility] [address] [place], [address] Potassium [Moles/Vol] 3.5 mmol/L Normal 3.5-5.1 [facility] Comment on above: Order Comment: Order Date: 09/27/24Order Info: [id number] - CMPOrder Info: [id number]- - CRE Performed By: #### L 500.4050, L100.0500 ####[facility] [address] [place], [address] Sodium [Moles/Vol] 138 mmol/L Normal 136-145 [facility] Comment on above: Order Comment: Order Date: 09/27/24Order Info: [id number] - CMPOrder Info: [id number]- - CRE Performed By: #### L 500.4050, L100.0500 ####[facility] [address] [place], [address] T PROT 8.0 g/dL Normal 6.4-8.2 [facility] Comment on above: Order Comment: Order Date: 09/27/24Order Info: [id number] - CMPOrder Info: [id number]- - CRE Performed By: #### L 500.4050, L100.0500 ####[facility] [address] [place], [place], [address] Urea nitrogen [Mass/Vol] 11 mg/dL Normal 7-18 [facility] Comment on above: Order Comment: Order Date: 09/27/24Order Info: [id number] - CMPOrder Info: [id number] - CRE Performed By: #### L 500.4050, L100.0500 ####[facility] [address] [place], [address] Erythrocyte distribution wid th ratioOrdered By: Ramone Smiley on 09-27-2024 Erythrocyte distribution width (RBC) [Ratio] 15.9 % High 11.6-14.6 [facility] Erythrocyte distribution wid th standard deviationOrdered By: Ramone Smiley on 09-27-2024 Erythrocyte distribution width (RBC) [Ratio] 47.4 fl High 35.1-43.9 [facility] Glomerular filtration rate ( GFR) estimationOrdered By: Ramone Smiley on 09-27-2024 GFR/1.73 sq M.predicted among non-blacks MDRD (S/P/Bld) [Vol rate/Area] 67 mL/min/{1.73_m2} >60 [facility] Comment on above: Non- GFR Calc Glucose measurementOrdered B y: Ramone Smiley on 09-27-2024 Glucose [Mass/Vol] 144 mg/dL High 74-106 [facility] Comment on above: Fasting Glucose resu lt greater than or equal to 126 mg/dL suggests DIABETES MELLITUS per A.D.A. criteria. Hematocrit Auto (Bld) [Volum e fraction]Ordered By: Ramone Smiley on 09-27-2024 Hematocrit (Bld) [Volume fraction] 35.7 % Low 37-47 [facility] Hemoglobin measurementOrdere d By: Ramone Smiley on 09-27-2024 Hemoglobin (Bld) [Mass/Vol] 11.0 g/dL Low 12.0-15.0 [facility] Laboratory - Chemistry and C hemistry - challengeOrdered By: Ramone Smiley on 09-27-2024 AST [Catalytic activity/Vol] 16 U/L 15-37 [facility] MCV (mean corpuscular volume ) determinationOrdered By: Ramone Smiley on 09-27-2024 MCV (RBC) [Entitic vol] 83.6 fL 81-[address] [facility] Mean corpuscular hemoglobin (MCH) determinationOrdered By: Ramone Smiley on 09-27-2024 MCH (RBC) [Entitic mass] 25.8 pg Low 27.0-32.0 [facility] Mean corpuscular hemoglobin concentration (MCHC) determinationOrdered By: Ramone Smiley on 09-27-2024 MCHC (RBC) [Mass/Vol] 30.8 g/dL Low 32-36 [facility] Mean platelet volume determi nationOrdered By: Ramone Smiley on 09-27-2024 Platelet mean volume (Bld) [Entitic vol] 11.3 fL 6.2-12.0 [facility] No Panel InformationOrdered By: Ramone Smiley on 09-27-2024 16 U/L 15-37 [facility] Platelet countOrdered By: Richar Smiley on 09-27-2024 Platelets (Bld) [#/Vol] 287 10*3/uL 150-450 [facility] Potassium measurementOrdered By: Ramone Smiley on 09-27-2024 Potassium [Moles/Vol] 3.5 mmol/L 3.5-5.1 [facility] RBC Auto (Bld) [#/Vol]Ordere d By: Ramone Smiley on 09-27-2024 RBC (Bld) [#/Vol] 4.27 10*6/uL 4.2-5.4 [facility] Serum anion gap measurementO rdered By: Ramone Smiley on 09-27-2024 Anion gap [Moles/Vol] 8 mmol/L 5-15 [facility] Serum globulin measurementOr dered By: Ramone Smiley on 09-27-2024 Globulin (S) [Mass/Vol] 5.0 g/dL High 2.2-4.2 [facility] Serum or plasma alanine kelley otransferase (ALT) measurementOrdered By: Ramone Smiley on 09-27-2024 ALT [Catalytic activity/Vol] 16 U/L 13-56 [facility] Serum or plasma albumin melanie urement (mass/volume)Ordered By: Ramone Smiley on 09-27-2024 Albumin [Mass/Vol] 3.0 g/dL Low 3.2-5.0 [facility] Serum or plasma alkaline lissa sphatase measurementOrdered By: Ramone Smiley on 09-27-2024 ALP [Catalytic activity/Vol] 145 U/L High 45-117 [facility] Serum or plasma calcium melanie urement (mass/volume)Ordered By: Ramone Smiley on 09-27-2024 Calcium [Mass/Vol] 11.0 mg/dL High 8.5-10.1 [facility] Serum or plasma creatinine m easurement (mass/volume)Ordered By: Ramone Smiley on 09-27-2024 Creatinine [Mass/Vol] 0.86 mg/dL 0.55-1.02 [facility] Comment on above: The validity of the calculated GFR & GFRAA in patients over 70 years has not been determined. Clinical correlation is essential. Serum or plasma urea nitroge n measurement (mass/volume)Ordered By: Ramone Smiley on 09-27-2024 Urea nitrogen [Mass/Vol] 11 mg/dL 7-18 [facility] Sodium levelOrdered By: Ramone Smiley on 09-27-2024 Sodium [Moles/Vol] 138 mmol/L 136-145 [facility] Total proteinOrdered By: Lilliam Smiley on 09-27-2024 Protein [Mass/Vol] 8.0 g/dL 6.4-8.2 [facility] White blood cell (WBC) count Ordered By: Ramone Smiley on 09-27-2024 WBC (Bld) [#/Vol] 8.6 10*3/uL 4.4-11.0 [facility] Kidney and Bladderon 024 Kidney and Bladder Normal [facility] BNP,B-Type NATRIURETIC PEPTI Ishaan 06-19-2024 Natriuretic peptide B (Bld) [Mass/Vol] 81.6 pg/mL Normal 0-100 [facility] Comment on above: Performed By: #### L 500.2500, L503.6620, L100.0100 ####[facility] [address] [place], [place], [id number] Basic Metabolic Profile (BMP )on 06-19-2024 BUN/CRE 9.3 RATIO Low 10-20 [facility] Comment on above: Performed By: #### L 500.2500, L503.6620, L100.0100 ####[facility] [address] [place], [address] CA,Total 11.0 mg/dL High 8.5-10.1 [facility] Comment on above: Performed By: #### L 500.2500, L503.6620, L100.0100 ####[facility] [address] [place], [address] Chloride [Moles/Vol] 104 mmol/L Normal 98-107 [facility] Comment on above: Performed By: #### L 500.2500, L503.6620, L100.0100 ####[facility] [address] [place], [address] CO2 [Moles/Vol] 26.0 mmol/L Normal 21.0-32.0 [facility] Comment on above: Performed By: #### L 500.2500, L503.6620, L100.0100 ####[facility] [address] [place], [address] Creatinine [Mass/Vol] 1.08 mg/dL High 0.55-1.02 [facility] Comment on above: Result Comment: The validity of the calculated GFR GFRAA in patients over70 years has not been determined. Clinical correlation isessential. Performed By: #### L 500.2500, L503.6620, L100.0100 ####[facility] [address] [place], [address] EST GFR - AA 63 mL/min Normal >60 [facility] Comment on above: Result Comment: Afri can [place]orean GFR Calc Performed By: #### L 500.2500, L503.6620, L100.0100 ####[facility] [address] [place], [address] GAP 6 Normal 5-15 [facility] Comment on above: Performed By: #### L 500.2500, L503.6620, L100.0100 ####[facility] [address] [place], [address] GFR/1.73 sq M.predicted among non-blacks MDRD (S/P/Bld) [Vol rate/Area] 52 mL/min/{1.73_m2} Low >60 [facility] Comment on above: Result Comment: Non- GFR Calc Performed By: #### L 500.2500, L503.6620, L100.0100 ####[facility] [address] [place], [address] Glucose [Mass/Vol] 263 mg/dL High 74-106 [facility] Comment on above: Result Comment: Gluc ose result greater than or equal to 200 mg/dLsuggests DIABETES MELLITUS per A.D.A. criteria. Performed By: #### L 500.2500, L503.6620, L100.0100 ####[facility] [address] [place], [address] Potassium [Moles/Vol] 4.4 mmol/L Normal 3.5-5.1 [facility] Comment on above: Performed By: #### L 500.2500, L503.6620, L100.0100 ####[facility] [address] [place], [address] Sodium [Moles/Vol] 137 mmol/L Normal 136-145 [facility] Comment on above: Performed By: #### L 500.2500, L503.6620, L100.0100 ####[facility] [address] [place], [address] Urea nitrogen [Mass/Vol] 10 mg/dL Normal 7-18 [facility] Comment on above: Performed By: #### L 500.2500, L503.6620, L100.0100 ####[facility] [address] [place], [address] CBC W/Diff, Automatedon 10-2 0-2024 Absolute Lymph 2.32 X10 3/uL Normal 0.83-4.51 [facility] Comment on above: Performed By: #### L 500.2500, L503.6620, L100.0100 ####[facility] [address] [place], [address] Absolute Neut 4.7 X10 3/uL Normal 2.0-7.7 [facility] Comment on above: Performed By: #### L 500.2500, L503.6620, L100.0100 ####[facility] [address] [place], [address] Basophils/100 WBC (Bld) 0.5 % Normal 0-[address] [facility] Comment on above: Performed By: #### L 500.2500, L503.6620, L100.0100 ####[facility] [address] [place], [address] Eosinophils/100 WBC (Bld) 8.7 % High 0-5 [facility] Comment on above: Performed By: #### L 500.2500, L503.6620, L100.0100 ####[facility] [address] [place], [address] Erythrocyte distribution width (RBC) [Ratio] 16.6 % High 11.6-14.6 [facility] Comment on above: Performed By: #### L 500.2500, L503.6620, L100.0100 ####[facility] [address] [place], [address] Hematocrit (Bld) [Volume fraction] 36.6 % Low 37-47 [facility] Comment on above: Performed By: #### L 500.2500, L503.6620, L100.0100 ####[facility] [address] [place], [address] Hemoglobin (Bld) [Mass/Vol] 11.2 g/dL Low 12.0-15.0 [facility] Comment on above: Performed By: #### L 500.2500, L503.6620, L100.0100 ####[facility] [address] [place], [address] IG% 0.200 Normal 0.0-0.9 [facility] Comment on above: Result Comment: IG% - Immature Granulocytes (promyelocytes, myelocytes andmetamyelocytes) > 1% indicates that a LEFT SHIFT is Present. Performed By: #### L 500.2500, L503.6620, L100.0100 ####[facility] [address] [place], [address] Lymphocytes/100 WBC (Bld) 27.7 % Normal 19-41 [facility] Comment on above: Performed By: #### L 500.2500, L503.6620, L100.0100 ####[facility] [address] [place], [address] MCH (RBC) [Entitic mass] 25.6 pg Low 27.0-32.0 [facility] Comment on above: Performed By: #### L 500.2500, L503.6620, L100.0100 ####[facility] [address] [place], [address] MCHC (RBC) [Mass/Vol] 30.6 g/dL Low 32-36 [facility] Comment on above: Performed By: #### L 500.2500, L503.6620, L100.0100 ####[facility] [address] [place], [address] MCV (RBC) [Entitic vol] 83.8 fL Normal 81-[address] [facility] Comment on above: Performed By: #### L 500.2500, L503.6620, L100.0100 ####[facility] [address] [place], [address] Monocytes/100 WBC (Bld) 6.7 % Normal 0-[address] [facility] Comment on above: Performed By: #### L 500.2500, L503.6620, L100.0100 ####[facility] [address] [place], [address] Neutrophils/100 WBC (Bld) 56.2 % Normal 47-70 [facility] Comment on above: Performed By: #### L 500.2500, L503.6620, L100.0100 ####[facility] [address] [place], [address] Nucleated RBC (Bld) [#/Vol] 0 10*3/uL Normal 0-5 [facility] Comment on above: Performed By: #### L 500.2500, L503.6620, L100.0100 ####[facility] [address] [place], [address] Platelet mean volume (Bld) [Entitic vol] 10.4 fL Normal 6.2-12.0 [facility] Comment on above: Performed By: #### L 500.2500, L503.6620, L100.0100 ####[facility] [address] [place], [address] Platelets (Bld) [#/Vol] 234 10*3/uL Normal 150-450 [facility] Comment on above: Performed By: #### L 500.2500, L503.6620, L100.0100 ####[facility] [address] [place], [address] RBC (Bld) [#/Vol] 4.37 10*6/uL Normal 4.2-5.4 [facility] Comment on above: Performed By: #### L 500.2500, L503.6620, L100.0100 ####[facility] [address] [place], [address] RDW SD 50.9 fl High 35.1-43.9 [facility] Comment on above: Performed By: #### L 500.2500, L503.6620, L100.0100 ####[facility] [address] [place], [address] WBC (Bld) [#/Vol] 8.4 10*3/uL Normal 4.4-11.0 [facility] Comment on above: Performed By: #### L 500.2500, L503.6620, L100.0100 ####[facility] [address] [place], [address] Chest 1 View (Portable)on Chest 1 View (Portable) Normal [facility] Emergency Department Summary on 06-19-2024 Emergency Department Summary Normal [facility] 12 Lead EKGon 05-30-2024 12 Lead EKG Normal [facility] BNP,B-Type NATRIURETIC PEPTI Ishaan 05-30-2024 Natriuretic peptide B (Bld) [Mass/Vol] 108.0 pg/mL High 0-100 [facility] Comment on above: Performed By: #### L 100.0100, L503.6620, L500.2500, L501.4020 ####[facility] [address] [place], [address] Basic Metabolic Profile (BMP )on 05-30-2024 BUN/CRE 12.8 RATIO Normal 06-19 [facility] Comment on above: Order Comment: 'TROP ' Serial specimen #1, #2 or #3: 1 Performed By: #### L 100.0100, L503.6620, L500.2500, L501.4020 ####[facility] [address] [place], [address] CA,Total 11.4 mg/dL High 8.5-10.1 [facility] Comment on above: Order Comment: 'TROP ' Serial specimen #1, #2 or #3: 1 Performed By: #### L 100.0100, L503.6620, L500.2500, L501.4020 ####[facility] [address] [place], [address] Chloride [Moles/Vol] 104 mmol/L Normal 98-107 [facility] Comment on above: Order Comment: 'TROP ' Serial specimen #1, #2 or #3: 1 Performed By: #### L 100.0100, L503.6620, L500.2500, L501.4020 ####[facility] [address] [place], [address] CO2 [Moles/Vol] 28.0 mmol/L Normal 21.0-32.0 [facility] Comment on above: Order Comment: 'TROP ' Serial specimen #1, #2 or #3: 1 Performed By: #### L 100.0100, L503.6620, L500.2500, L501.4020 ####[facility] [address] [place], [address] Creatinine [Mass/Vol] 0.93 mg/dL Normal 0.55-1.02 [facility] Comment on above: Order Comment: 'TROP ' Serial specimen #1, #2 or #3: 1 Result Comment: The validity of the calculated GFR GFRAA in patients over70 years has not been determined. Clinical correlation isessential. Performed By: #### L 100.0100, L503.6620, L500.2500, L501.4020 ####[facility] [address] [place], [address] ECRCL 45.88 ml/min Normal [facility] Comment on above: Order Comment: 'TROP ' Serial specimen #1, #2 or #3: 1 Performed By: #### L 100.0100, L503.6620, L500.2500, L501.4020 ####[facility] [address] [place], [address] EST GFR - AA 74 mL/min Normal >60 [facility] Comment on above: Order Comment: 'TROP ' Serial specimen #1, #2 or #3: 1 Result Comment: Afri can Ecuadorean GFR Calc Performed By: #### L 100.0100, L503.6620, L500.2500, L501.4020 ####[facility] [address] [place], [address] GAP 7 Normal 5-15 [facility] Comment on above: Order Comment: 'TROP ' Serial specimen #1, #2 or #3: 1 Performed By: #### L 100.0100, L503.6620, L500.2500, L501.4020 ####[facility] [address] [place], [address] GFR/1.73 sq M.predicted among non-blacks MDRD (S/P/Bld) [Vol rate/Area] 61 mL/min/{1.73_m2} Normal >60 [facility] Comment on above: Order Comment: 'TROP ' Serial specimen #1, #2 or #3: 1 Result Comment: Non- GFR Calc Performed By: #### L 100.0100, L503.6620, L500.2500, L501.4020 ####[facility] [address] [place], [address] Glucose [Mass/Vol] 167 mg/dL High 74-106 [facility] Comment on above: Order Comment: 'TROP ' Serial specimen #1, #2 or #3: 1 Result Comment: Fast ing Glucose result greater than or equal to 126 mg/dLsuggests DIABETES MELLITUS per A.D.A. criteria. Performed By: #### L 100.0100, L503.6620, L500.2500, L501.4020 ####[facility] [address] [place], [address] Potassium [Moles/Vol] 4.0 mmol/L Normal 3.5-5.1 [facility] Comment on above: Order Comment: 'TROP ' Serial specimen #1, #2 or #3: 1 Performed By: #### L 100.0100, L503.6620, L500.2500, L501.4020 ####[facility] [address] [place], [address] Sodium [Moles/Vol] 138 mmol/L Normal 136-145 [facility] Comment on above: Order Comment: 'TROP ' Serial specimen #1, #2 or #3: 1 Performed By: #### L 100.0100, L503.6620, L500.2500, L501.4020 ####[facility] [address] [place], [address] Urea nitrogen [Mass/Vol] 12 mg/dL Normal 7-18 [facility] Comment on above: Order Comment: 'TROP ' Serial specimen #1, #2 or #3: 1 Performed By: #### L 100.0100, L503.6620, L500.2500, L501.4020 ####[facility] [address] [place], [address] CBC W/Diff, Automatedon 05-03 PLT EST ADEQUATE Normal ADEQ [facility] Comment on above: Performed By: #### L 100.0100, L503.6620, L500.2500, L501.4020 ####[facility] [address] [place], [address] Chest PA and Lateralon 05-30 Chest PA and Lateral Normal [facility] Emergency Department Summary on 05-30-2024 Emergency Department Summary Normal [facility] L501.4020on 05-30-2024 TROPONIN-I HS 12 pg/mL Normal 3.0-54.0 [facility] Comment on above: Order Comment: 'TROP ' Serial specimen #1, #2 or #3: 1 Result Comment: Sean reyes Note: New Test Units and Gender Specific Reference Ranges. For more information see Policy Stat Procedure Pipestem High Sensitivity Troponin (TNIH) and attachments. Performed By: #### L 100.0100, L503.6620, L500.2500, L501.4020 ####[facility] [address] [place], [address] Inital Evaluation (1) - PTon 04-26-2024 Inital Evaluation (1) - PT Normal [facility] CBC W/Diff, Automatedon 03-31 Absolute Lymph 1.93 X10 3/uL Normal 0.83-4.51 [facility] Comment on above: Performed By: #### L 100.0100, L500.4050, L501.9985 ####[facility] [address] [place], [address] Absolute Neut 5.1 X10 3/uL Normal 2.0-7.7 [facility] Comment on above: Performed By: #### L 100.0100, L500.4050, L501.9985 ####[facility] [address] [place], [address] Basophils/100 WBC (Bld) 0.6 % Normal 0-[address] [facility] Comment on above: Performed By: #### L 100.0100, L500.4050, L501.9985 ####[facility] [address] [place], [address] Eosinophils/100 WBC (Bld) 3.7 % Normal 0-5 [facility] Comment on above: Performed By: #### L 100.0100, L500.4050, L501.9985 ####[facility] [address] [place], [address] Erythrocyte distribution width (RBC) [Ratio] 16.0 % High 11.6-14.6 [facility] Comment on above: Performed By: #### L 100.0100, L500.4050, L501.9985 ####[facility] [address] [place], [address] Hematocrit (Bld) [Volume fraction] 34.9 % Low 37-47 [facility] Comment on above: Performed By: #### L 100.0100, L500.4050, L501.9985 ####[facility] [address] [place], [address] Hemoglobin (Bld) [Mass/Vol] 10.4 g/dL Low 12.0-15.0 [facility] Comment on above: Performed By: #### L 100.0100, L500.4050, L501.9985 ####[facility] [address] [place], [address] IG% 0.300 Normal 0.0-0.9 [facility] Comment on above: Result Comment: IG% - Immature Granulocytes (promyelocytes, myelocytes andmetamyelocytes) > 1% indicates that a LEFT SHIFT is Present. Performed By: #### L 100.0100, L500.4050, L501.9985 ####[facility] [address] [place], [address] Lymphocytes/100 WBC (Bld) 24.5 % Normal 19-41 [facility] Comment on above: Performed By: #### L 100.0100, L500.4050, L501.9985 ####[facility] [address] [place], [address] MCH (RBC) [Entitic mass] 24.4 pg Low 27.0-32.0 [facility] Comment on above: Performed By: #### L 100.0100, L500.4050, L501.9985 ####[facility] [address] [place], [address] MCHC (RBC) [Mass/Vol] 29.8 g/dL Low 32-36 [facility] Comment on above: Performed By: #### L 100.0100, L500.4050, L501.9985 ####[facility] [address] [place], [address] MCV (RBC) [Entitic vol] 81.9 fL Normal 81-[address] [facility] Comment on above: Performed By: #### L 100.0100, L500.4050, L501.9985 ####[facility] [address] [place], [address] Monocytes/100 WBC (Bld) 6.8 % Normal 0-[address] [facility] Comment on above: Performed By: #### L 100.0100, L500.4050, L501.9985 ####[facility] [address] [place], [address] Neutrophils/100 WBC (Bld) 64.1 % Normal 47-70 [facility] Comment on above: Performed By: #### L 100.0100, L500.4050, L501.9985 ####[facility] [address] [place], [address] Nucleated RBC (Bld) [#/Vol] 0 10*3/uL Normal 0-5 [facility] Comment on above: Performed By: #### L 100.0100, L500.4050, L501.9985 ####[facility] [address] [place], [address] Platelet mean volume (Bld) [Entitic vol] 10.7 fL Normal 6.2-12.0 [facility] Comment on above: Performed By: #### L 100.0100, L500.4050, L501.9985 ####[facility] [address] [place], [address] Platelets (Bld) [#/Vol] 294 10*3/uL Normal 150-450 [facility] Comment on above: Performed By: #### L 100.0100, L500.4050, L501.9985 ####[facility] [address] [place], [address] RBC (Bld) [#/Vol] 4.26 10*6/uL Normal 4.2-5.4 [facility] Comment on above: Performed By: #### L 100.0100, L500.4050, L501.9985 ####[facility] [address] [place], [address] RDW SD 48.0 fl High 35.1-43.9 [facility] Comment on above: Performed By: #### L 100.0100, L500.4050, L501.9985 ####[facility] [address] [place], [address] WBC (Bld) [#/Vol] 7.9 10*3/uL Normal 4.4-11.0 [facility] Comment on above: Performed By: #### L 100.0100, L500.4050, L501.9985 ####[facility] [address] [place], [address] Comprehensive Metabolic Prof [facility] 04-18-2024 Albumin [Mass/Vol] 3.0 g/dL Low 3.2-5.0 [facility] Comment on above: Performed By: #### L 100.0100, L500.4050, L501.9985 ####[facility] [address] [place], [address] Albumin/Globulin [Mass ratio] 0.6 {ratio} Low 0.9-2.4 [facility] Comment on above: Performed By: #### L 100.0100, L500.4050, L501.9985 ####[facility] [address] [place], [address] ALK P 130 U/L High 45-117 [facility] Comment on above: Performed By: #### L 100.0100, L500.4050, L501.9985 ####[facility] [address] [place], [address] ALT [Catalytic activity/Vol] 14 U/L Normal 13-56 [facility] Comment on above: Performed By: #### L 100.0100, L500.4050, L501.9985 ####[facility] [address] [place], [address] AST [Catalytic activity/Vol] 22 U/L Normal 15-37 [facility] Comment on above: Performed By: #### L 100.0100, L500.4050, L501.9985 ####[facility] [address] [place], [address] Bilirubin [Mass/Vol] 0.30 mg/dL Normal 0.20-1.00 [facility] Comment on above: Result Comment: For patients on eltrombopag therapy, use of Dimension Pipestem TBIL is not recommended. Performed By: #### L 100.0100, L500.4050, L501.9985 ####[facility] [address] [place], [address] BUN/CRE 12.5 RATIO Normal 10-20 [facility] Comment on above: Performed By: #### L 100.0100, L500.4050, L501.9985 ####[facility] [address] [place], [address] CA,Total 11.0 mg/dL High 8.5-10.1 [facility] Comment on above: Performed By: #### L 100.0100, L500.4050, L501.9985 ####[facility] [address] [place], [address] Chloride [Moles/Vol] 101 mmol/L Normal 98-107 [facility] Comment on above: Performed By: #### L 100.0100, L500.4050, L501.9985 ####[facility] [address] [place], [address] CO2 [Moles/Vol] 26.0 mmol/L Normal 21.0-32.0 [facility] Comment on above: Performed By: #### L 100.0100, L500.4050, L501.9985 ####[facility] [address] [place], [address] Creatinine [Mass/Vol] 0.96 mg/dL Normal 0.55-1.02 [facility] Comment on above: Result Comment: The validity of the calculated GFR GFRAA in patients over70 years has not been determined. Clinical correlation isessential. Performed By: #### L 100.0100, L500.4050, L501.9985 ####[facility] [address] [place], [address] EST GFR - AA 72 mL/min Normal >60 [facility] Comment on above: Result Comment: Afri can Ecu[place]orean GFR Calc Performed By: #### L 100.0100, L500.4050, L501.9985 ####[facility] [address] [place], [address] GAP 6 Normal 5-15 [facility] Comment on above: Performed By: #### L 100.0100, L500.4050, L501.9985 ####[facility] [address] [place], [address] GFR/1.73 sq M.predicted among non-blacks MDRD (S/P/Bld) [Vol rate/Area] 59 mL/min/{1.73_m2} Low >60 [facility] Comment on above: Result Comment: Non- GFR Calc Performed By: #### L 100.0100, L500.4050, L501.9985 ####[facility] [address] [place], [address] Globulin (S) [Mass/Vol] 5.4 g/dL High 2.2-4.2 [facility] Comment on above: Performed By: #### L 100.0100, L500.4050, L501.9985 ####[facility] [address] [place], [address] Glucose [Mass/Vol] 142 mg/dL High 74-106 [facility] Comment on above: Result Comment: Fast ing Glucose result greater than or equal to 126 mg/dLsuggests DIABETES MELLITUS per A.D.A. criteria. Performed By: #### L 100.0100, L500.4050, L501.9985 ####[facility] [address] [place], [address] Potassium [Moles/Vol] 3.5 mmol/L Normal 3.5-5.1 [facility] Comment on above: Performed By: #### L 100.0100, L500.4050, L501.9985 ####[facility] [address] [place], [address] Sodium [Moles/Vol] 133 mmol/L Low 136-145 [facility] Comment on above: Performed By: #### L 100.0100, L500.4050, L501.9985 ####[facility] [address] [place], [address] T PROT 8.4 g/dL High 6.4-8.2 [facility] Comment on above: Performed By: #### L 100.0100, L500.4050, L501.9985 ####[facility] [address] [place], [address] Urea nitrogen [Mass/Vol] 12 mg/dL Normal 7-18 [facility] Comment on above: Performed By: #### L 100.0100, L500.4050, L501.9985 ####[facility] [address] [place], [address] Hemoglobin A1con 04-18-2024 HbA1c (Bld) [Mass fraction] 8.2 % High 3.8-5.6 [facility] Comment on above: Result Comment: Norm al < 5.7 % Prediabetic 5.7 - 6.4 % Diabetic >or= 6.5 % Please note range changes. Performed By: #### L 100.0100, L500.4050, L501.9985 ####[facility] [address] [place], [address] Absolute lymphocyte countOrd ered By: Sunny Bell on 12-30-2023 Lymphocytes Auto (Unsp spec) [#/Vol] 2.48 10*3/uL 0.83-4.51 [facility] Automated lymphocyte count a s percentage of total leukocytesOrdered By: Sunny Bell on 12-30-2023 Lymphocytes/100 WBC Auto (Unsp spec) 25.3 % 19-41 [facility] Basophil percentageOrdered B y: Sunny Bell on 12-30-2023 Basophils/100 WBC (Bld) 0.3 % 0-[address] [facility] Chloride [Moles/Vol] 104 mmol/L 98-107 [facility] Eosinophils/100 WBC (Bld) 1.4 % 0-5 [facility] Glucose [Mass/Vol] 127 mg/dL 74-106 [facility] Comment on above: Fasting Glucose resu lt greater than or equal to 126 mg/dL suggests DIABETES MELLITUS per A.D.A. criteria. Hemoglobin (Bld) [Mass/Vol] 10.7 g/dL 12.0-15.0 [facility] Monocytes/100 WBC (Bld) 8.7 % 0-10 [facility] Neutrophils (Bld) [#/Vol] 6.3 10*3/uL 2.0-7.7 [facility] Neutrophils/100 WBC (Bld) 63.9 % 47-70 [facility] Potassium [Moles/Vol] 4.4 mmol/L 3.5-5.1 [facility] Sodium [Moles/Vol] 135 mmol/L 136-145 [facility] WBC (Bld) [#/Vol] 9.8 10*3/uL 4.4-11.0 [facility] Determination of erythrocyte mean corpuscular volume (MCV)Ordered By: Sunny Bell on 12-30-2023 MCV (RBC) [Entitic vol] 84.9 fL 81-[address] [facility] Erythrocyte distribution wid th ratioOrdered By: Sunny Bell on 12-30-2023 Erythrocyte distribution width (RBC) [Ratio] 15.5 % 11.6-14.6 [facility] Erythrocyte distribution wid th standard deviationOrdered By: Sunny Bell on 12-30-2023 Erythrocyte distribution width (RBC) [Entitic vol] 47.9 fL 35.1-43.9 [facility] Hematocrit Auto (Bld) [Volum e fraction]Ordered By: Sunny Bell on 12-30-2023 Hematocrit (Bld) [Volume fraction] 33.8 % 37-47 [facility] Immature granulocytes/100 WB C Auto (Bld)Ordered By: Sunny Bell on 12-30-2023 Immature granulocytes/100 WBC (Bld) 0.400 % 0.0-0.9 [facility] Comment on above: IG% - Immature Granu locytes (promyelocytes, myelocytes and metamyelocytes) > 1% indicates that a LEFT SHIFT is Present. Laboratory - Chemistry and C hemistry - challengeOrdered By: Sunny Bell on 12-30-2023 CO2 [Moles/Vol] 27.0 mmol/L 21.0-32.0 [facility] Urea nitrogen/Creatinine [Mass ratio] 21.3 mg/mg 10-20 [facility] Laboratory - Hematology and Cell countsOrdered By: Sunny Bell on 12-30-2023 MCH (RBC) [Entitic mass] 26.9 pg 27.0-32.0 [facility] MCHC (RBC) [Mass/Vol] 31.7 g/dL 32-36 [facility] Nucleated RBC/100 WBC (Bld) [Ratio] 0 % 0-5 [facility] Platelet mean volume (Bld) [Entitic vol] 11.3 fL 6.2-12.0 [facility] Platelets (Bld) [#/Vol] 191 10*3/uL 150-450 [facility] No Panel InformationOrdered By: Sunny Bell on 12-30-2023 Estimated Creatinine Clearance Calc 40.01 ml/min [facility] Estimated GFR (MDRD) Amer 63 mL/min >60 [facility] Comment on above: GFR Calc Estimated GFR (MDRD) Non-Af Amer 52 mL/min >60 [facility] Comment on above: Non- GFR Calc RBC Auto (Bld) [#/Vol]Ordere d By: Sunny Bell on 12-30-2023 RBC (Bld) [#/Vol] 3.98 10*6/uL 4.2-5.4 [facility] Serum or plasma calcium melanie urement (mass/volume)Ordered By: Sunny Bell on 12-30-2023 Calcium [Mass/Vol] 11.3 mg/dL 8.5-10.1 [facility] Serum or plasma creatinine m easurement (mass/volume)Ordered By: Sunny Bell on 12-30-2023 Creatinine [Mass/Vol] 1.08 mg/dL 0.55-1.02 [facility] Comment on above: The validity of the calculated GFR & GFRAA in patients over 70 years has not been determined. Clinical correlation is essential. Serum or plasma urea nitroge n measurement (mass/volume)Ordered By: Sunny Bell on 12-30-2023 Urea nitrogen [Mass/Vol] 23 mg/dL 7-18 [facility] Thin prep Papanicolaou smear with manual screeningOrdered By: Sunny Bell on 12-30-2023 Thin prep Papanicolaou smear with manual screening 78 mg/dL 74-106 [facility] Comment on above: MANAGEMENT OF PATIEN T CARE PER NURSING PROTOCOL Thin prep Papanicolaou smear with manual screening 4 5-15 [facility] Basophil percentageOrdered B y: Sunny Bell on 12-28-2023 Basophil percentage 3.0 mg/dL 2.5-4.9 [facility] No Panel InformationOrdered By: Nestor Bartlett on 12-28-2023 Parathyroid Hormone (Intact) 177.6 pg/mL 18.4-80.1 [facility] Absolute lymphocyte countOrd ered By: Queta Cortez on 12-27-2023 Lymphocytes Auto (Unsp spec) [#/Vol] 3.04 10*3/uL 0.83-4.51 [facility] Activated partial thrombopla stin time (aPTT) in platelet poor plasma by coagulation aOrdered By: Queta Cortez on 12-27-2023 aPTT Coag (PPP) [Time] 27.3 s 24.1-36.2 [facility] Automated lymphocyte count a s percentage of total leukocytesOrdered By: Queta Cortez on 12-27-2023 Lymphocytes/100 WBC Auto (Unsp spec) 37.1 % 19-41 [facility] Basophil percentageOrdered B y: Queta Cortez on 12-27-2023 Basophils/100 WBC (Bld) 0.5 % 0-[address] [facility] Chloride [Moles/Vol] 103 mmol/L 98-107 [facility] Eosinophils/100 WBC (Bld) 3.1 % 0-5 [facility] Glucose [Mass/Vol] 254 mg/dL 74-106 [facility] Comment on above: Glucose result great er than or equal to 200 mg/dLsuggests DIABETES MELLITUS per A.D.A. criteria. Hemoglobin (Bld) [Mass/Vol] 12.4 g/dL 12.0-15.0 [facility] Monocytes/100 WBC (Bld) 6.6 % 0-[address] [facility] Neutrophils (Bld) [#/Vol] 4.2 10*3/uL 2.0-7.7 [facility] Neutrophils/100 WBC (Bld) 51.7 % 47-70 [facility] Potassium [Moles/Vol] 4.2 mmol/L 3.5-5.1 [facility] Sodium [Moles/Vol] 136 mmol/L 136-145 [facility] WBC (Bld) [#/Vol] 8.2 10*3/uL 4.4-11.0 [facility] Determination of erythrocyte mean corpuscular volume (MCV)Ordered By: Queta Cortez on 12-27-2023 MCV (RBC) [Entitic vol] 85.2 fL 81-[address] [facility] Erythrocyte distribution wid th ratioOrdered By: Queta Cortez on 12-27-2023 Erythrocyte distribution width (RBC) [Ratio] 15.5 % 11.6-14.6 [facility] Erythrocyte distribution wid th standard deviationOrdered By: Queta Cortez on 12-27-2023 Erythrocyte distribution width (RBC) [Entitic vol] 47.0 fL 35.1-43.9 [facility] Hematocrit Auto (Bld) [Volum e fraction]Ordered By: Queta Cortez on 12-27-2023 Hematocrit (Bld) [Volume fraction] 39.8 % 37-47 [facility] Immature granulocytes/100 WB C Auto (Bld)Ordered By: Queta Cortez on 12-27-2023 Immature granulocytes/100 WBC (Bld) 1.000 % 0.0-0.9 [facility] Comment on above: IG% - Immature Granu locytes (promyelocytes, myelocytes and metamyelocytes) > 1% indicates that a LEFT SHIFT is Present. Laboratory - Chemistry and C hemistry - challengeOrdered By: Queta Cortez on 12-27-2023 CO2 [Moles/Vol] 29.0 mmol/L 21.0-32.0 [facility] Urea nitrogen/Creatinine [Mass ratio] 18.5 mg/mg 10-20 [facility] Laboratory - CoagulationOrde red By: Queta Cortez on 12-27-2023 INR Coag (Bld) [Relative time] 1.1 {INR} [facility] PT Coag (PPP) [Time] 13.7 s 11.7-14.9 [facility] Laboratory - Hematology and Cell countsOrdered By: Queta Cortez on 12-27-2023 MCH (RBC) [Entitic mass] 26.6 pg 27.0-32.0 [facility] MCHC (RBC) [Mass/Vol] 31.2 g/dL 32-36 [facility] Nucleated RBC/100 WBC (Bld) [Ratio] 0 % 0-5 [facility] Platelet mean volume (Bld) [Entitic vol] 11.5 fL 6.2-12.0 [facility] Platelets (Bld) [#/Vol] 237 10*3/uL 150-450 [facility] No Panel InformationOrdered By: Queta Cortez on 12-27-2023 Estimated Creatinine Clearance Calc 37.33 ml/min [facility] Estimated GFR (MDRD) Amer 56 mL/min >60 [facility] Comment on above: GFR Calc Estimated GFR (MDRD) Non-Af Amer 46 mL/min >60 [facility] Comment on above: Non- GFR Calc RBC Auto (Bld) [#/Vol]Ordere d By: Queta Cortez on 12-27-2023 RBC (Bld) [#/Vol] 4.67 10*6/uL 4.2-5.4 [facility] Serum or plasma calcium melanie urement (mass/volume)Ordered By: Queta Cortez on 12-27-2023 Calcium [Mass/Vol] 11.2 mg/dL 8.5-10.1 [facility] Serum or plasma creatinine m easurement (mass/volume)Ordered By: Queta Cortez on 12-27-2023 Creatinine [Mass/Vol] 1.19 mg/dL 0.55-1.02 [facility] Comment on above: The validity of the calculated GFR & GFRAA in patients over 70 years has not been determined. Clinical correlation is essential. Serum or plasma urea nitroge n measurement (mass/volume)Ordered By: Queta Cortez on 12-27-2023 Urea nitrogen [Mass/Vol] 22 mg/dL 7-18 [facility] Thin prep Papanicolaou smear with manual screeningOrdered By: Queta Cortez on 12-27-2023 Thin prep Papanicolaou smear with manual screening 4 5-15 [facility] Whole blood hemoglobin A1c/t otal hemoglobin ratio (mass fraction)Ordered By: Nestor Bartlett on 12-27-2023 HbA1c (Bld) [Mass fraction] 9.4 % 3.8-5.6 [facility] Comment on above: Normal < 5.7 % Predi abetic 5.7 - 6.4 % Diabetic >or= 6.5 % Please note range changes. Absolute lymphocyte countOrd ered By: Ramone Smiley on 10-26-2023 Lymphocytes Auto (Unsp spec) [#/Vol] 2.86 10*3/uL 0.83-4.51 [facility] Automated lymphocyte count a s percentage of total leukocytesOrdered By: Ramone Smiley on 10-26-2023 Lymphocytes/100 WBC Auto (Unsp spec) 31.9 % 19-41 [facility] Basophil percentageOrdered B y: Ramone Smiley on 10-26-2023 Basophils/100 WBC (Bld) 0.6 % 0-[address] [facility] Bilirubin [Mass/Vol] 0.30 mg/dL 0.20-1.00 [facility] Comment on above: For patients on eltr ombopag therapy, use of Dimension Pipestem TBIL is not recommended. Chloride [Moles/Vol] 101 mmol/L 98-107 [facility] Eosinophils/100 WBC (Bld) 2.6 % 0-5 [facility] Glucose [Mass/Vol] 135 mg/dL 74-106 [facility] Comment on above: Fasting Glucose resu lt greater than or equal to 126 mg/dL suggests DIABETES MELLITUS per A.D.A. criteria. Hemoglobin (Bld) [Mass/Vol] 10.9 g/dL 12.0-15.0 [facility] Monocytes/100 WBC (Bld) 8.0 % 0-10 [facility] Neutrophils (Bld) [#/Vol] 5.1 10*3/uL 2.0-7.7 [facility] Neutrophils/100 WBC (Bld) 56.6 % 47-70 [facility] Potassium [Moles/Vol] 4.5 mmol/L 3.5-5.1 [facility] Protein [Mass/Vol] 8.6 g/dL 6.4-8.2 [facility] Sodium [Moles/Vol] 134 mmol/L 136-145 [facility] WBC (Bld) [#/Vol] 9.0 10*3/uL 4.4-11.0 [facility] Determination of erythrocyte mean corpuscular volume (MCV)Ordered By: Ramone Smiley on 10-26-2023 MCV (RBC) [Entitic vol] 85.8 fL 81-99 [facility] Erythrocyte distribution wid th ratioOrdered By: Ramone Smiley on 10-26-2023 Erythrocyte distribution width (RBC) [Ratio] 17.5 % 11.6-14.6 [facility] Erythrocyte distribution wid th standard deviationOrdered By: Ramone Smiley on 10-26-2023 Erythrocyte distribution width (RBC) [Entitic vol] 55.2 fL 35.1-43.9 [facility] Hematocrit Auto (Bld) [Volum e fraction]Ordered By: Ramone Smiley on 10-26-2023 Hematocrit (Bld) [Volume fraction] 36.2 % 37-47 [facility] Immature granulocytes/100 WB C Auto (Bld)Ordered By: Ramone Smiley on 10-26-2023 Immature granulocytes/100 WBC (Bld) 0.300 % 0.0-0.9 [facility] Comment on above: IG% - Immature Granu locytes (promyelocytes, myelocytes and metamyelocytes) > 1% indicates that a LEFT SHIFT is Present. Laboratory - Chemistry and C hemistry - challengeOrdered By: Ramone Smiley on 10-26-2023 Albumin/Globulin [Mass ratio] 0.6 {ratio} 0.9-2.4 [facility] ALP [Catalytic activity/Vol] 109 U/L 45-117 [facility] ALT [Catalytic activity/Vol] 17 U/L 13-56 [facility] CO2 [Moles/Vol] 27.0 mmol/L 21.0-32.0 [facility] Cobalamin (Vitamin B12) [Mass/Vol] 654 pg/mL 211-911 [facility] Ferritin [Mass/Vol] 99 ng/mL 8-252 [facility] Globulin (S) [Mass/Vol] 5.4 g/dL 2.2-4.[address] [facility] Urea nitrogen/Creatinine [Mass ratio] 17.6 mg/mg 10-20 [facility] Laboratory - Hematology and Cell countsOrdered By: Ramone Smiley on 10-26-2023 MCH (RBC) [Entitic mass] 25.8 pg 27.0-32.0 [facility] MCHC (RBC) [Mass/Vol] 30.1 g/dL 32-36 [facility] Nucleated RBC/100 WBC (Bld) [Ratio] 0 % 0-5 [facility] Platelet mean volume (Bld) [Entitic vol] 11.6 fL 6.2-12.0 [facility] Platelets (Bld) [#/Vol] 268 10*3/uL 150-450 [facility] No Panel InformationOrdered By: Ramone Smiley on 10-26-2023 Estimated GFR (MDRD) Amer 67 mL/min >60 [facility] Comment on above: GFR Calc Estimated GFR (MDRD) Non-Af Amer 55 mL/min >60 [facility] Comment on above: Non- GFR Calc Folate 23.70 ng/mL 3.1-55.4 [facility] Vitamin D 25-Hydroxy 34.5 ng/mL [facility] Comment on above: Vitamin D 25(OH) Sta tus Range Deficiency <20 ng/mL (50nmol/L) Insufficiency 20 - 30 ng/mL (50 - 75 nmol/L) Sufficiency 30 - 100 ng/mL (75 - 250 nmol/L) Toxicity >100 ng/mL (>250 nmol/L) RBC Auto (Bld) [#/Vol]Ordere d By: Ramone Smiley on 10-26-2023 RBC (Bld) [#/Vol] 4.22 10*6/uL 4.2-5.4 [facility] Serum or plasma calcium melanie urement (mass/volume)Ordered By: Ramone Smiley on 10-26-2023 Calcium [Mass/Vol] 11.2 mg/dL 8.5-10.1 [facility] Serum or plasma creatinine m easurement (mass/volume)Ordered By: Ramone Smiley on 10-26-2023 Creatinine [Mass/Vol] 1.02 mg/dL 0.55-1.02 [facility] Comment on above: The validity of the calculated GFR & GFRAA in patients over 70 years has not been determined. Clinical correlation is essential. Serum or plasma thyroid stim ulating hormone (TSH) measurement (units/volume)Ordered By: Ramone Smiley on 10-26-2023 TSH Qn 0.66 uIU/mL 0.358-3.74 [facility] Serum or plasma urea nitroge n measurement (mass/volume)Ordered By: Ramone Smiley on 10-26-2023 Urea nitrogen [Mass/Vol] 18 mg/dL 7-18 [facility] Thin prep Papanicolaou smear with manual screeningOrdered By: Ramone Smiley on 10-26-2023 Thin prep Papanicolaou smear with manual screening 3.2 g/dL 3.2-5.0 [facility] Thin prep Papanicolaou smear with manual screening 18 U/L 15-37 [facility] Thin prep Papanicolaou smear with manual screening 6 5-15 [facility] Whole blood hemoglobin A1c/t otal hemoglobin ratio (mass fraction)Ordered By: Ramone Smiley on 10-26-2023 HbA1c (Bld) [Mass fraction] 8.2 % 3.8-5.6 [facility] Comment on above: Normal < 5.7 % Predi abetic 5.7 - 6.4 % Diabetic >or= 6.5 % Please note range changes. Basophil percentageOrdered B y: Nestor Bartlett on 08-17-2023 Chloride [Moles/Vol] 105 mmol/L 98-107 [facility] Glucose [Mass/Vol] 167 mg/dL 74-106 [facility] Comment on above: Fasting Glucose resu lt greater than or equal to 126 mg/dL suggests DIABETES MELLITUS per A.D.A. criteria. Potassium [Moles/Vol] 4.9 mmol/L 3.5-5.1 [facility] Sodium [Moles/Vol] 139 mmol/L 136-145 [facility] WBC (Bld) [#/Vol] 8.4 10*3/uL 4.4-11.0 [facility] Blood erythrocytes count (nu mber/volume)Ordered By: Nestor Bartlett on 08-17-2023 RBC (Bld) [#/Vol] 3.41 10*6/uL 4.2-5.4 [facility] Blood hemoglobin measurement (mass/volume)Ordered By: Nestor Bartlett on 08-17-2023 Hemoglobin (Bld) [Mass/Vol] 8.9 g/dL 12.0-15.0 [facility] Blood platelet mean volumeOr dered By: Nestor Bartlett on 08-17-2023 Platelet mean volume (Bld) [Entitic vol] 10.4 fL 6.2-12.0 [facility] Determination of erythrocyte mean corpuscular volume (MCV)Ordered By: Nestor Bartlett on 08-17-2023 MCV (RBC) [Entitic vol] 84.5 fL 81-[address] [facility] Glucose Glucometer (BldC) [M ass/Vol]Ordered By: Sandeep Denson on 08-17-2023 Glucose [Mass/Vol] 267 mg/dL 74-106 [facility] Comment on above: MANAGEMENT OF PATIEN T CARE PER NURSING PROTOCOL Hematocrit Auto (Bld) [Volum e fraction]Ordered By: Nestor Bartlett on 08-17-2023 Hematocrit (Bld) [Volume fraction] 28.8 % 37-47 [facility] Laboratory - Chemistry and C hemistry - challengeOrdered By: Nestor Bartlett on 08-17-2023 CO2 [Moles/Vol] 30.0 mmol/L 21.0-32.0 [facility] Urea nitrogen/Creatinine [Mass ratio] 19.9 mg/mg 10-20 [facility] Laboratory - Hematology and Cell countsOrdered By: Nestor Bartlett on 08-17-2023 Erythrocyte distribution width (RBC) [Entitic vol] 55.6 fL 35.1-43.9 [facility] Erythrocyte distribution width (RBC) [Ratio] 17.9 % 11.6-14.6 [facility] MCH (RBC) [Entitic mass] 26.1 pg 27.0-32.0 [facility] MCHC Auto (RBC) [Mass/Vol]Or dered By: Nestor Bartlett on 08-17-2023 MCHC (RBC) [Mass/Vol] 30.9 g/dL 32-36 [facility] No Panel InformationOrdered By: Nestor Bartlett on 08-17-2023 Estimated Creatinine Clearance Calc 41.47 ml/min [facility] Estimated GFR (MDRD) Amer 77 mL/min >60 [facility] Comment on above: GFR Calc Estimated GFR (MDRD) Non-Af Amer 64 mL/min >60 [facility] Comment on above: Non- GFR Calc Platelets bldOrdered By: Neida Bartlett on 08-17-2023 Platelets (Bld) [#/Vol] 480 10*3/uL 150-450 [facility] Serum or plasma calcium melanie urement (mass/volume)Ordered By: Nestor Bartlett on 08-17-2023 Calcium [Mass/Vol] 10.6 mg/dL 8.5-10.1 [facility] Serum or plasma creatinine m easurement (mass/volume)Ordered By: Nestor Bartlett on 08-17-2023 Creatinine [Mass/Vol] 0.91 mg/dL 0.55-1.02 [facility] Comment on above: The validity of the calculated GFR & GFRAA in patients over 70 years has not been determined. Clinical correlation is essential. Serum or plasma urea nitroge n measurement (mass/volume)Ordered By: Nestor Bartlett on 08-17-2023 Urea nitrogen [Mass/Vol] 18 mg/dL 7-18 [facility] Thin prep Papanicolaou smear with manual screeningOrdered By: Nestor Bartlett on 08-17-2023 Thin prep Papanicolaou smear with manual screening 4 5-15 [facility] Absolute lymphocyte countOrd ered By: Heydi Amaya on 08-14-2023 Lymphocytes Auto (Unsp spec) [#/Vol] 1.25 10*3/uL 0.83-4.51 [facility] Basophil percentageOrdered B y: Heydi Amaya on 08-14-2023 Basophil percentage 1.7 mg/dL 2.5-4.9 [facility] Basophils/100 WBC (Bld) 0.3 % 0-[address] [facility] Eosinophils/100 WBC (Bld) 0.6 % 0-5 [facility] Neutrophils (Bld) [#/Vol] 9.0 10*3/uL 2.0-7.7 [facility] Neutrophils/100 WBC (Bld) 79.7 % 47-70 [facility] Blood lymphocytes/100 leukoc ytesOrdered By: Heydi Amaya on 08-14-2023 Lymphocytes/100 WBC (Bld) 11.1 % 19-41 [facility] Blood monocytes/100 leukocyt esOrdered By: Heydi Amaya on 08-14-2023 Monocytes/100 WBC (Bld) 6.1 % 0-[address] [facility] Iron measurement (mass/mass) Ordered By: Nestor Bartlett on 08-14-2023 Iron (Unsp spec) [Mass/Mass] 14 ug/dL 50-170 [facility] Laboratory - Chemistry and C hemistry - challengeOrdered By: Nestor Bartlett on 08-14-2023 Cobalamin (Vitamin B12) [Mass/Vol] 250 pg/mL 211-911 [facility] Laboratory - Chemistry and C hemistry - challengeOrdered By: Heydi Amaya on 08-14-2023 Free T4 [Mass/Vol] 1.51 ng/dL 0.76-1.46 [facility] Magnesium [Mass/Vol] 2.1 mg/dL 1.6-2.6 [facility] Laboratory - Hematology and Cell countsOrdered By: Heydi Amaya on 08-14-2023 Immature granulocytes/100 WBC (Bld) 2.200 % 0.0-0.9 [facility] Comment on above: IG% - Immature Granu locytes (promyelocytes, myelocytes and metamyelocytes) > 1% indicates that a LEFT SHIFT is Present. Nucleated RBC/100 WBC (Bld) [Ratio] 0 % 0-5 [facility] No Panel InformationOrdered By: Heydi Amaya on 08-14-2023 Free Triiodothyronine (T3) pg/dL 1.9 pg/mL 2.18-3.98 [facility] Parathyroid Hormone (Intact) 153.7 pg/mL 18.4-80.1 [facility] Thyroid Stimulating Hormone (TSH) 0.01 uIU/mL 0.358-3.74 [facility] Vitamin D 25-Hydroxy 39.9 ng/mL [facility] Comment on above: Vitamin D 25(OH) Sta tus Range Deficiency <20 ng/mL (50nmol/L) Insufficiency 20 - 30 ng/mL (50 - 75 nmol/L) Sufficiency 30 - 100 ng/mL (75 - 250 nmol/L) Toxicity >100 ng/mL (>250 nmol/L) No Panel InformationOrdered By: Nestor Bartlett on 08-14-2023 Total Iron Binding Capacity 197 ug/dL 250-450 [facility] Serum or plasma ferritin rubina surement (mass/volume)Ordered By: Nestor Bartlett on 08-14-2023 Ferritin [Mass/Vol] 1578 ng/mL 8-252 [facility] Serum or plasma folate measu rement (mass/volume)Ordered By: Nestor Bartlett on 08-14-2023 Folate [Mass/Vol] 2.90 ng/mL 3.1-55.4 [facility] Serum or plasma iron saturat ion measurement (mass fraction)Ordered By: Nestor Bartlett on 12-15-2023 Iron saturation [Mass fraction] 7.1 % 15.0-55.0 [facility] Thin prep Papanicolaou smear with manual screeningOrdered By: Heydi Amaya on 08-14-2023 Thin prep Papanicolaou smear with manual screening 285 mOsm/KG 280-301 [facility] Absolute lymphocyte countOrd ered By: Robert Allison on 08-13-2023 Lymphocytes Auto (Unsp spec) [#/Vol] 1.37 10*3/uL 0.83-4.51 [facility] Basophil percentageOrdered B y: Robert Allison on 08-13-2023 Basophil percentage 10-25 SEEN /hpf 0-5 [facility] Lactate [Moles/Vol] 1.2 mmol/L 0.4-2.0 [facility] Basophils/100 WBC (Bld) 0.3 % 0-1 [facility] Bilirubin [Mass/Vol] 0.60 mg/dL 0.20-1.00 [facility] Comment on above: For patients on eltr ombopag therapy, use of Dimension Pipestem TBIL is not recommended. Chloride [Moles/Vol] 92 mmol/L 98-107 [facility] Eosinophils/100 WBC (Bld) 0.1 % 0-5 [facility] Glucose [Mass/Vol] 212 mg/dL 74-106 [facility] Comment on above: Glucose result great er than or equal to 200 mg/dLsuggests DIABETES MELLITUS per A.D.A. criteria. Neutrophils (Bld) [#/Vol] 12.1 10*3/uL 2.0-7.7 [facility] Neutrophils/100 WBC (Bld) 82.7 % 47-70 [facility] Potassium [Moles/Vol] 3.8 mmol/L 3.5-5.1 [facility] Comment on above: Moderate Hemolysis, Result may be falsely increased. Protein [Mass/Vol] 7.8 g/dL 6.4-8.2 [facility] Sodium [Moles/Vol] 127 mmol/L 136-145 [facility] WBC (Bld) [#/Vol] 14.7 10*3/uL 4.4-11.0 [facility] Bilirubin Test strip Ql (U)O rdered By: Robert Allison on 08-13-2023 Bilirubin Ql (U) Negative Negative [facility] Blood erythrocytes count (nu mber/volume)Ordered By: Robert Allison on 08-13-2023 RBC (Bld) [#/Vol] 3.83 10*6/uL 4.2-5.4 [facility] Blood hemoglobin measurement (mass/volume)Ordered By: Robert Allison on 08-13-2023 Hemoglobin (Bld) [Mass/Vol] 10.0 g/dL 12.0-15.0 [facility] Blood lymphocytes/100 leukoc ytesOrdered By: Robert Allison on 08-13-2023 Lymphocytes/100 WBC (Bld) 9.4 % 19-41 [facility] Blood monocytes/100 leukocyt esOrdered By: Robert Allison on 08-13-2023 Monocytes/100 WBC (Bld) 6.1 % 0-[address] [facility] Blood platelet mean volumeOr dered By: Robert Allison on 08-13-2023 Platelet mean volume (Bld) [Entitic vol] 10.8 fL 6.2-12.0 [facility] Culture, urineOrdered By: Ester Allison on 08-13-2023 Bacteria identified Cx Nom (U) Klebsiella pneumoniae sp pneum [facility] Determination of erythrocyte mean corpuscular volume (MCV)Ordered By: Robert Allison on 08-13-2023 MCV (RBC) [Entitic vol] 85.1 fL 81-[address] [facility] Hematocrit Auto (Bld) [Volum e fraction]Ordered By: Robert Allison on 08-13-2023 Hematocrit (Bld) [Volume fraction] 32.6 % 37-47 [facility] Influenza virus A and B and SARS-CoV-2 (COVID-19) Ag panel - Upper respiratory specimOrdered By: Robert Allison on 08-13-2023 SARS-CoV-2 (COVID-19) RNA BEBETO+probe Ql (Resp) [facility] Ketones Test strip Ql (U)Ord ered By: Robert Allison on 08-13-2023 Ketones Ql (U) 50 mg/dl Negative [facility] Laboratory - Chemistry and C hemistry - challengeOrdered By: Heydi Amaya on 08-13-2023 Sodium (U) [Moles/Vol] 24 mmol/L Not Establ. [facility] Laboratory - Chemistry and C hemistry - challengeOrdered By: Robert Allison on 08-13-2023 ALP [Catalytic activity/Vol] 105 U/L 45-117 [facility] ALT [Catalytic activity/Vol] 29 U/L 13-56 [facility] CO2 [Moles/Vol] 23.0 mmol/L 21.0-32.0 [facility] Globulin (S) [Mass/Vol] 5.6 g/dL 2.2-4.2 [facility] Urea nitrogen/Creatinine [Mass ratio] 26.3 mg/mg 10-20 [facility] Laboratory - Hematology and Cell countsOrdered By: Robert Allison on 08-13-2023 Erythrocyte distribution width (RBC) [Entitic vol] 53.7 fL 35.1-43.9 [facility] Erythrocyte distribution width (RBC) [Ratio] 17.2 % 11.6-14.6 [facility] Immature granulocytes/100 WBC (Bld) 1.400 % 0.0-0.9 [facility] Comment on above: IG% - Immature Granu locytes (promyelocytes, myelocytes and metamyelocytes) > 1% indicates that a LEFT SHIFT is Present. MCH (RBC) [Entitic mass] 26.1 pg 27.0-32.0 [facility] Nucleated RBC/100 WBC (Bld) [Ratio] 0 % 0-5 [facility] Laboratory - Microbiology an d Antimicrobial susceptibilityOrdered By: Robert Allison on 08-13-2023 Bacteria identified Cx Nom (Bld) GNR lactose snuff box finisher [facility] MCHC Auto (RBC) [Mass/Vol]Or dered By: Robert Allison on 08-13-2023 MCHC (RBC) [Mass/Vol] 30.7 g/dL 32-36 [facility] Mucus LM Ql (Urine sed)Order ed By: Robert Allison on 08-13-2023 Mucus Ql (Urine sed) 0 SEEN /hpf [facility] Nitrite Test strip Ql (U)Ord ered By: Robert Allison on 08-13-2023 Nitrite Ql (U) Negative Negative [facility] No Panel InformationOrdered By: Heydi Amaya on 08-13-2023 Urine Potassium 8.0 mmol/L Not Establ. [facility] Urine Urea Nitrogen 334 mg/dL NO RANGE EST. [facility] No Panel InformationOrdered By: Robert Espinomasood on 08-13-2023 Estimated Creatinine Clearance Calc 31.98 ml/min [facility] Estimated GFR (MDRD) Amer 57 mL/min >60 [facility] Comment on above: GFR Calc Estimated GFR (MDRD) Non-Af Amer 47 mL/min >60 [facility] Comment on above: Non- GFR Calc Troponin I High Sensitivity 39 pg/mL 3.0-54.0 [facility] Comment on above: Please Note: New Rosi t Units and Gender Specific Reference Ranges. For more information see Policy Stat Procedure Pipestem High Sensitivity Troponin (TNIH) and attachments. Platelets bldOrdered By: Harriet Espinomasood on 08-13-2023 Platelets (Bld) [#/Vol] 412 10*3/uL 150-450 [facility] Protein Test strip Ql (U)Ord ered By: Robert Espinomasood on 08-13-2023 Protein Ql (U) 30 mg/dl Negative [facility] Serum or plasma albumin melanie urement (mass/volume)Ordered By: Robert Espinomasood on 08-13-2023 Albumin [Mass/Vol] 2.2 g/dL 3.2-5.0 [facility] Serum or plasma albumin/glob ulin mass ratioOrdered By: [facility] on 08-13-2023 Albumin/Globulin [Mass ratio] 0.4 {ratio} 0.9-2.4 [facility] Serum or plasma calcium melanie urement (mass/volume)Ordered By: [facility] on 08-13-2023 Calcium [Mass/Vol] 10.5 mg/dL 8.5-10.1 [facility] Serum or plasma creatinine m easurement (mass/volume)Ordered By: [facility] on 08-13-2023 Creatinine [Mass/Vol] 1.18 mg/dL 0.55-1.02 [facility] Comment on above: The validity of the calculated GFR & GFRAA in patients over 70 years has not been determined. Clinical correlation is essential. Serum or plasma urea nitroge n measurement (mass/volume)Ordered By: Robert Allison on 08-13-2023 Urea nitrogen [Mass/Vol] 31 mg/dL 7-18 [facility] Squamous epithelial cells de tection in urine sediment by light microscopyOrdered By: Robert Allison on 08-13-2023 Epithelial cells.squamous LM Ql (Urine sed) 0 SEEN /hpf 5-10 [facility] Thin prep Papanicolaou smear with manual screeningOrdered By: Heydi Amaya on 08-13-2023 Thin prep Papanicolaou smear with manual screening 20 mmol/L Not Establ. [facility] Thin prep Papanicolaou smear with manual screeningOrdered By: Robert Allison on 08-13-2023 Thin prep Papanicolaou smear with manual screening 36 U/L [facility] Comment on above: Moderate Hemolysis, Result may be falsely increased. Thin prep Papanicolaou smear with manual screening 01-12 [facility] Upper respiratory specimen i nfluenza A virus, influenza B virus, and severe acute resOrdered By: Robert Allison on 08-13-2023 Upper respiratory specimen influenza A virus, influenza B virus, and severe acute res [facility] Urine blood detectionOrdered By: Robert Allison on 08-13-2023 RBC Ql (U) 50 /ul Negative [facility] RBC Ql (U) 0-5 SEEN /hpf 0-5 [facility] Urine clarityOrdered By: Harriet Allison on 08-13-2023 Clarity (U) Sl. Cloudy Clear [facility] Urine color determinationOrd ered By: Robert Allison on 08-13-2023 Color (U) Yellow Yellow [facility] Urine creatinine measurement (mass/volume)Ordered By: Heydi Amaya on 08-13-2023 Creatinine (U) [Mass/Vol] 37.60 mg/dL NO RANGE EST. [facility] Urine glucose detectionOrder ed By: Robert Allison on 08-13-2023 Glucose Ql (U) 1000 mg/dl Normal [facility] Urine leukocyte esterase det ection by dipstickOrdered By: Robert Allison on 08-13-2023 Leukocyte esterase Test strip Ql (U) 500 /ul Negative [facility] Urine osmolality measurement Ordered By: Heydi Amaya on 08-13-2023 Osmolality (U) [Osmolality] 269 mOsm/KG >50 [facility] Comment on above: Normal Urine Referen ce Ranges Random: 50 - 1200 mOsm/kg H20 depending on fluid intake Random: >850 mOsm/kg after 12 hour fluid restriction 24 hour: ~300 - 900 mOsm/kg H2O Urine pHOrdered By: Robert latifr on 08-13-2023 pH (U) 5.0 [pH] 5.0 - 8.0 [facility] Urine sediment bacteria coun t by microscopy (number/high power field)Ordered By: Robert Allison on 08-13-2023 Bacteria LM.HPF (Urine sed) [#/Area] 3 /[HPF] None Seen [facility] Urine specific gravity measu rementOrdered By: Robert Allison on 08-13-2023 Specific gravity (U) [Rel density] 1.015 1.002-1.030 [facility] Urobilinogen Auto test strip Ql (U)Ordered By: Robert Allison on 08-13-2023 Urobilinogen Ql (U) Normal mg/dl Normal [facility] Absolute lymphocyte countOrd ered By: Winston Gill on 07-18-2023 Lymphocytes Auto (Unsp spec) [#/Vol] 0.92 10*3/uL 0.83-4.51 [facility] Basophil percentageOrdered B y: Winston Gill on 07-18-2023 Basophil percentage >100 SEEN /hpf 0-[address] [facility] Basophils/100 WBC (Bld) 0.4 % 0-[address] [facility] Bilirubin [Mass/Vol] 0.40 mg/dL 0.20-1.00 [facility] Comment on above: For patients on eltr ombopag therapy, use of Dimension Pipestem TBIL is not recommended. Chloride [Moles/Vol] 95 mmol/L 98-107 [facility] Eosinophils/100 WBC (Bld) 0.7 % 0-5 [facility] Glucose [Mass/Vol] 139 mg/dL 74-106 [facility] Comment on above: Fasting Glucose resu lt greater than or equal to 126 mg/dL suggests DIABETES MELLITUS per A.D.A. criteria. Neutrophils (Bld) [#/Vol] 5.4 10*3/uL 2.0-7.7 [facility] Neutrophils/100 WBC (Bld) 76.5 % 47-70 [facility] Potassium [Moles/Vol] 3.7 mmol/L 3.5-5.1 [facility] Protein [Mass/Vol] 7.4 g/dL 6.4-8.2 [facility] Sodium [Moles/Vol] 131 mmol/L 136-145 [facility] WBC (Bld) [#/Vol] 7.0 10*3/uL 4.4-11.0 [facility] Bilirubin Test strip Ql (U)O rdered By: Winston Gill on 07-18-2023 Bilirubin Ql (U) Negative Negative [facility] Blood erythrocytes count (nu mber/volume)Ordered By: Winston Gill on 07-18-2023 RBC (Bld) [#/Vol] 3.85 10*6/uL 4.2-5.4 [facility] Blood hemoglobin measurement (mass/volume)Ordered By: Winston Gill on 07-18-2023 Hemoglobin (Bld) [Mass/Vol] 10.8 g/dL 12.0-15.0 [facility] Blood lymphocytes/100 leukoc ytesOrdered By: Winston Gill on 07-18-2023 Lymphocytes/100 WBC (Bld) 13.1 % 19-41 [facility] Blood monocytes/100 leukocyt esOrdered By: Winston Gill on 07-18-2023 Monocytes/100 WBC (Bld) 8.0 % 0-10 [facility] Blood platelet mean volumeOr dered By: Winston Gill on 07-18-2023 Platelet mean volume (Bld) [Entitic vol] 10.0 fL 6.2-12.0 [facility] Culture, urineOrdered By: Devyn Rea on 07-18-2023 Bacteria identified Cx Nom (U) Escherichia coli [facility] Bacteria identified Cx Nom (U) Klebsiella pneumoniae sp pneum [facility] Determination of erythrocyte mean corpuscular volume (MCV)Ordered By: Winston Gill on 07-18-2023 MCV (RBC) [Entitic vol] 87.0 fL 81-[address] [facility] Hematocrit Auto (Bld) [Volum e fraction]Ordered By: Winston Gill on 07-18-2023 Hematocrit (Bld) [Volume fraction] 33.5 % 37-47 [facility] Ketones Test strip Ql (U)Ord ered By: Winston Gill on 07-18-2023 Ketones Ql (U) 50 mg/dl Negative [facility] Laboratory - Chemistry and C hemistry - challengeOrdered By: Winston Gill on 07-18-2023 ALP [Catalytic activity/Vol] 93 U/L 45-117 [facility] ALT [Catalytic activity/Vol] 13 U/L 13-56 [facility] CO2 [Moles/Vol] 27.0 mmol/L 21.0-32.0 [facility] Globulin (S) [Mass/Vol] 4.8 g/dL 2.2-4.[address] [facility] Urea nitrogen/Creatinine [Mass ratio] 15.6 mg/mg 10-20 [facility] Laboratory - Hematology and Cell countsOrdered By: Winston Gill on 07-18-2023 Erythrocyte distribution width (RBC) [Entitic vol] 52.4 fL 35.1-43.9 [facility] Erythrocyte distribution width (RBC) [Ratio] 16.4 % 11.6-14.6 [facility] Immature granulocytes/100 WBC (Bld) 1.300 % 0.0-0.9 [facility] Comment on above: IG% - Immature Granu locytes (promyelocytes, myelocytes and metamyelocytes) > 1% indicates that a LEFT SHIFT is Present. MCH (RBC) [Entitic mass] 28.1 pg 27.0-32.0 [facility] Nucleated RBC/100 WBC (Bld) [Ratio] 0 % 0-5 [facility] MCHC Auto (RBC) [Mass/Vol]Or dered By: Winston Gill on 07-18-2023 MCHC (RBC) [Mass/Vol] 32.2 g/dL 32-36 [facility] Mucus LM Ql (Urine sed)Order ed By: Winston Gill on 07-18-2023 Mucus Ql (Urine sed) 0 SEEN /hpf [facility] Nitrite Test strip Ql (U)Ord ered By: Winston Gill on 07-18-2023 Nitrite Ql (U) Negative Negative [facility] No Panel InformationOrdered By: Winston Gill on 07-18-2023 Estimated Creatinine Clearance Calc 45.46 ml/min [facility] Estimated GFR (MDRD) Amer 85 mL/min >60 [facility] Comment on above: GFR Calc Estimated GFR (MDRD) Non-Af Amer 70 mL/min >60 [facility] Comment on above: Non- GFR Calc Platelets bldOrdered By: Pet richar Jairo on 07-18-2023 Platelets (Bld) [#/Vol] 370 10*3/uL 150-450 [facility] Protein Test strip Ql (U)Ord ered By: Winston Gill on 07-18-2023 Protein Ql (U) 100 mg/dl Negative [facility] Serum or plasma albumin melanie urement (mass/volume)Ordered By: Winston Gill on 07-18-2023 Albumin [Mass/Vol] 2.6 g/dL 3.2-5.0 [facility] Serum or plasma albumin/glob ulin mass ratioOrdered By: Winston Gill on 07-18-2023 Albumin/Globulin [Mass ratio] 0.5 {ratio} 0.9-2.4 [facility] Serum or plasma calcium melanie urement (mass/volume)Ordered By: Winston Gill on 07-18-2023 Calcium [Mass/Vol] 10.3 mg/dL 8.5-10.1 [facility] Serum or plasma creatinine m easurement (mass/volume)Ordered By: Winston Gill on 07-18-2023 Creatinine [Mass/Vol] 0.83 mg/dL 0.55-1.02 [facility] Comment on above: The validity of the calculated GFR & GFRAA in patients over 70 years has not been determined. Clinical correlation is essential. Serum or plasma urea nitroge n measurement (mass/volume)Ordered By: Winston Gill on 07-18-2023 Urea nitrogen [Mass/Vol] 13 mg/dL - [facility] Squamous epithelial cells de tection in urine sediment by light microscopyOrdered By: Winston Gill on 07-18-2023 Epithelial cells.squamous LM Ql (Urine sed) 5-10 SEEN /hpf 5-10 [facility] Thin prep Papanicolaou smear with manual screeningOrdered By: Winston Gill on 11-18-2023 Thin prep Papanicolaou smear with manual screening 26 U/L 15-37 [facility] Thin prep Papanicolaou smear with manual screening 9 5-15 [facility] Urine blood detectionOrdered By: Winston Gill on 07-18-2023 RBC Ql (U) 50 /ul Negative [facility] RBC Ql (U) 0-5 SEEN /hpf 0-5 [facility] Urine clarityOrdered By: Pet richar Gill on 07-18-2023 Clarity (U) Cloudy Clear [facility] Urine color determinationOrd ered By: Winston Gill on 07-18-2023 Color (U) Yellow Yellow [facility] Urine glucose detectionOrder ed By: Winston Gill on 07-18-2023 Glucose Ql (U) 1000 mg/dl Normal [facility] Urine leukocyte esterase det ection by dipstickOrdered By: Winston Gill on 07-18-2023 Leukocyte esterase Test strip Ql (U) 500 /ul Negative [facility] Urine pHOrdered By: Winston castillo on 07-18-2023 pH (U) 5.0 [pH] 5.0 - 8.0 [facility] Urine sediment bacteria coun t by microscopy (number/high power field)Ordered By: Winston Gill on 07-18-2023 Bacteria LM.HPF (Urine sed) [#/Area] 3 /[HPF] None Seen [facility] Urine sediment leukocyte lisandro t count by microscopy (number/low power field)Ordered By: Winston Gill on 07-18-2023 WBC casts LM.LPF (Urine sed) [#/Area] 0-5 SEEN /lpf None Seen [facility] Urine specific gravity measu rementOrdered By: Winston Gill on 07-18-2023 Specific gravity (U) [Rel density] 1.020 1.002-1.030 [facility] Urobilinogen Auto test strip Ql (U)Ordered By: Winston Gill on 07-18-2023 Urobilinogen Ql (U) 1 mg/dl Normal [facility] No Panel Informationon 07-15 POC SARS CoV-2 Antigen Negative [facility] Amorphous sediment detection in urine sediment by light microscopyOrdered By: Cheryl Mendez on 06-01-2023 Amorphous sediment LM Ql (Urine sed) 1+ URATE [facility] Basophil percentageOrdered B y: Cheryl Mendez on 06-01-2023 Basophil percentage 5-10 SEEN /hpf 0-[address] [facility] Bilirubin Test strip Ql (U)O rdered By: Cheryl Mendez on 06-01-2023 Bilirubin Ql (U) Negative Negative [facility] Ketones Test strip Ql (U)Ord ered By: Cheryl Mendez on 06-01-2023 Ketones Ql (U) Negative Negative [facility] Mucus LM Ql (Urine sed)Order ed By: Cheryl Mendez on 06-01-2023 Mucus Ql (Urine sed) 0 SEEN /hpf [facility] Nitrite Test strip Ql (U)Ord ered By: Cheryl Mendez on 06-01-2023 Nitrite Ql (U) Negative Negative [facility] No Panel InformationOrdered By: Cheryl Mendez on 06-01-2023 Urine Microalbumin/Creatinine Ratio 173.1 mg/g CRE <30 [facility] Protein Test strip Ql (U)Ord ered By: Cheryl Mendez on 06-01-2023 Protein Ql (U) 15 mg/dl Negative [facility] Squamous epithelial cells de tection in urine sediment by light microscopyOrdered By: Cheryl Mendez on 06-01-2023 Epithelial cells.squamous LM Ql (Urine sed) 0-5 SEEN /hpf 5-10 [facility] Thin prep Papanicolaou smear with manual screeningOrdered By: Cheryl Mendez on 06-01-2023 Thin prep Papanicolaou smear with manual screening 98.3 mg/L NO RANGE EST. [facility] Urine blood detectionOrdered By: Cheryl Mendez on 06-01-2023 RBC Ql (U) 25 /ul Negative [facility] RBC Ql (U) 0-5 SEEN /hpf 0-5 [facility] Urine clarityOrdered By: Dyana Mendez on 06-01-2023 Clarity (U) Cloudy Clear [facility] Urine color determinationOrd ered By: Cheryl Mendez on 06-01-2023 Color (U) Yellow Yellow [facility] Urine creatinine measurement (mass/volume)Ordered By: Cheryl Mendez on 06-01-2023 Creatinine (U) [Mass/Vol] 56.80 mg/dL NO RANGE EST. [facility] Urine glucose detectionOrder ed By: Cheryl Mendez on 06-01-2023 Glucose Ql (U) 1000 mg/dl Normal [facility] Urine leukocyte esterase det ection by dipstickOrdered By: Cheryl Mendez on 06-01-2023 Leukocyte esterase Test strip Ql (U) 100 /ul Negative [facility] Urine pHOrdered By: Nikki Mendez on 06-01-2023 pH (U) 5.0 [pH] 5.0 - 8.0 [facility] Urine sediment bacteria coun t by microscopy (number/high power field)Ordered By: Cheryl Mendez on 06-01-2023 Bacteria LM.HPF (Urine sed) [#/Area] 3 /[HPF] None Seen [facility] Urine specific gravity measu rementOrdered By: Cheryl Mendez on 06-01-2023 Specific gravity (U) [Rel density] 1.015 1.002-1.030 [facility] Urobilinogen Auto test strip Ql (U)Ordered By: Cheryl Mendez on 06-01-2023 Urobilinogen Ql (U) Normal mg/dl Normal [facility] Basophil percentageOrdered B y: Cheryl Mendez on 05-27-2023 Basophil percentage 2.7 mg/dL 2.5-4.9 [facility] Chloride [Moles/Vol] 102 mmol/L 98-107 [facility] Glucose [Mass/Vol] 220 mg/dL 74-106 [facility] Comment on above: Glucose result great er than or equal to 200 mg/dLsuggests DIABETES MELLITUS per A.D.A. criteria. Potassium [Moles/Vol] 3.9 mmol/L 3.5-5.1 [facility] Sodium [Moles/Vol] 137 mmol/L 136-145 [facility] Laboratory - Chemistry and C hemistry - challengeOrdered By: Cheryl Mendez on 05-27-2023 CO2 [Moles/Vol] 28.0 mmol/L 21.0-32.0 [facility] Urea nitrogen/Creatinine [Mass ratio] 10.0 mg/mg 10-20 [facility] No Panel InformationOrdered By: Cheryl Mendez on 05-27-2023 Estimated GFR (MDRD) Amer 89 mL/min >60 [facility] Comment on above: GFR Calc Estimated GFR (MDRD) Non-Af Amer 73 mL/min >60 [facility] Comment on above: Non- GFR Calc Parathyroid Hormone (Intact) 164.3 pg/mL 18.4-80.1 [facility] Vitamin D 25-Hydroxy 45.4 ng/mL [facility] Comment on above: Vitamin D 25(OH) Sta tus Range Deficiency <20 ng/mL (50nmol/L) Insufficiency 20 - 30 ng/mL (50 - 75 nmol/L) Sufficiency 30 - 100 ng/mL (75 - 250 nmol/L) Toxicity >100 ng/mL (>250 nmol/L) Serum or plasma albumin melanie urement (mass/volume)Ordered By: Cheryl Mendez on 05-27-2023 Albumin [Mass/Vol] 2.9 g/dL 3.2-5.0 [facility] Serum or plasma calcium melanie urement (mass/volume)Ordered By: Cheryl Mendez on 05-27-2023 Calcium [Mass/Vol] 10.7 mg/dL 8.5-10.1 [facility] Serum or plasma creatinine m easurement (mass/volume)Ordered By: Cheryl Mendez on 05-27-2023 Creatinine [Mass/Vol] 0.80 mg/dL 0.55-1.02 [facility] Comment on above: The validity of the calculated GFR & GFRAA in patients over 70 years has not been determined. Clinical correlation is essential. Serum or plasma urea nitroge n measurement (mass/volume)Ordered By: Cheryl Mendez on 05-27-2023 Urea nitrogen [Mass/Vol] 8 mg/dL 7-18 [facility] Culture, urineOrdered By: Allan Anguiano on 03-24-2023 Bacteria identified Cx Nom (U) Klebsiella pneumoniae sp pneum [facility] Bacteria identified Cx Nom (U) Klebsiella pneumoniae sp pneum [facility] Absolute lymphocyte countOrd ered By: Dr. Smiley on 01-28-2023 Lymphocytes Auto (Unsp spec) [#/Vol] 3.27 10*3/uL 0.83-4.51 [facility] Absolute lymphocyte countOrd ered By: Dr. Lockwood on 01-28-2023 Lymphocytes Auto (Unsp spec) [#/Vol] 2.27 10*3/uL 0.83-4.51 [facility] Basophil percentageOrdered B y: Dr. Smiley on 01-28-2023 Basophils/100 WBC (Bld) 0.5 % 0-[address] [facility] Bilirubin [Mass/Vol] 0.30 mg/dL 0.20-1.00 [facility] Comment on above: For patients on eltr ombopag therapy, use of Dimension Pipestem TBIL is not recommended. Chloride [Moles/Vol] 99 mmol/L 98-107 [facility] Cholesterol [Mass/Vol] 145 mg/dL <200 [facility] Comment on above: <200 mg/dL Desirable 200-240 mg/dL Borderline >240 mg/dL High Risk Eosinophils/100 WBC (Bld) 2.3 % 0-5 [facility] Glucose [Mass/Vol] 182 mg/dL 74-106 [facility] Comment on above: Fasting Glucose resu lt greater than or equal to 126 mg/dL suggests DIABETES MELLITUS per A.D.A. criteria. Neutrophils (Bld) [#/Vol] 3.9 10*3/uL 2.0-7.7 [facility] Neutrophils/100 WBC (Bld) 50.0 % 47-70 [facility] Potassium [Moles/Vol] 3.6 mmol/L 3.5-5.1 [facility] Protein [Mass/Vol] 7.9 g/dL 6.4-8.2 [facility] Sodium [Moles/Vol] 134 mmol/L 136-145 [facility] Triglyceride [Mass/Vol] 119 mg/dL <[address] [facility] Comment on above: The drugs N-Acetylcy steine and Metamizole may falsely depress this assay.Serum Triglycerides Reference Interval Normal <150 mg/dL Borderline high 150 - 199 mg/dL High 200 - 499 mg/dL Very High > or = 500 mg/dL WBC (Bld) [#/Vol] 7.7 10*3/uL 4.4-11.0 [facility] Basophil percentageOrdered B y: Dr. Lockwood on 01-28-2023 Basophils/100 WBC (Bld) 0.8 % 0-[address] [facility] Chloride [Moles/Vol] 102 mmol/L 98-107 [facility] Eosinophils/100 WBC (Bld) 2.6 % 0-5 [facility] Glucose [Mass/Vol] 137 mg/dL 74-106 [facility] Comment on above: Fasting Glucose resu lt greater than or equal to 126 mg/dL suggests DIABETES MELLITUS per A.D.A. criteria. Neutrophils (Bld) [#/Vol] 3.8 10*3/uL 2.0-7.7 [facility] Neutrophils/100 WBC (Bld) 56.6 % 47-70 [facility] Potassium [Moles/Vol] 3.8 mmol/L 3.5-5.1 [facility] Protein [Mass/Vol] 7.4 g/dL 6.4-8.2 [facility] Sodium [Moles/Vol] 136 mmol/L 136-145 [facility] WBC (Bld) [#/Vol] 6.6 10*3/uL 4.4-11.0 [facility] Blood erythrocytes count (nu mber/volume)Ordered By: Dr. Smiley on 01-28-2023 RBC (Bld) [#/Vol] 4.10 10*6/uL 4.2-5.4 [facility] Blood erythrocytes count (nu mber/volume)Ordered By: Dr. Lockwood on 01-28-2023 RBC (Bld) [#/Vol] 3.83 10*6/uL 4.2-5.4 [facility] Blood hemoglobin measurement (mass/volume)Ordered By: Dr. Smiley on 01-28-2023 Hemoglobin (Bld) [Mass/Vol] 11.5 g/dL 12.0-15.0 [facility] Blood hemoglobin measurement (mass/volume)Ordered By: Dr. Lockwood on 01-28-2023 Hemoglobin (Bld) [Mass/Vol] 11.1 g/dL 12.0-15.0 [facility] Blood lymphocytes/100 leukoc ytesOrdered By: Dr. Smiley on 01-28-2023 Lymphocytes/100 WBC (Bld) 42.3 % [facility] Blood lymphocytes/100 leukoc ytesOrdered By: Dr. Lockwood on 01-28-2023 Lymphocytes/100 WBC (Bld) 34.2 % [facility] Blood monocytes/100 leukocyt esOrdered By: Dr. Smiley on 01-28-2023 Monocytes/100 WBC (Bld) 4.8 % 0-[address] [facility] Blood monocytes/100 leukocyt esOrdered By: Dr. Lockwood on 01-28-2023 Monocytes/100 WBC (Bld) 5.6 % 0-[address] [facility] Blood platelet mean volumeOr dered By: Dr. Smiley on 01-28-2023 Platelet mean volume (Bld) [Entitic vol] 9.8 fL 6.2-12.0 [facility] Blood platelet mean volumeOr dered By: Dr. Lockwood on 01-28-2023 Platelet mean volume (Bld) [Entitic vol] 9.3 fL 6.2-12.0 [facility] Determination of erythrocyte mean corpuscular volume (MCV)Ordered By: Dr. Smiley on 01-28-2023 MCV (RBC) [Entitic vol] 90.7 fL 81-[address] [facility] Determination of erythrocyte mean corpuscular volume (MCV)Ordered By: Dr. Lockwood on 01-28-2023 MCV (RBC) [Entitic vol] 87.7 fL 81-[address] [facility] Hematocrit Auto (Bld) [Volum e fraction]Ordered By: Dr. Smliey on 01-28-2023 Hematocrit (Bld) [Volume fraction] 37.2 % 37-47 [facility] Hematocrit Auto (Bld) [Volum e fraction]Ordered By: Dr. Lockwood on 01-28-2023 Hematocrit (Bld) [Volume fraction] 33.6 % 37-47 [facility] Laboratory - Chemistry and C hemistry - challengeOrdered By: Dr. Smiley on 01-28-2023 ALP [Catalytic activity/Vol] 153 U/L 45-117 [facility] ALT [Catalytic activity/Vol] 20 U/L 13-56 [facility] CO2 [Moles/Vol] 25.0 mmol/L 21.0-32.0 [facility] Globulin (S) [Mass/Vol] 4.9 g/dL 2.2-4.[address] [facility] Urea nitrogen/Creatinine [Mass ratio] 10.7 mg/mg 10-20 [facility] Laboratory - Chemistry and C hemistry - challengeOrdered By: Dr. Lockwood on 01-28-2023 ALP [Catalytic activity/Vol] 140 U/L 45-117 [facility] CO2 [Moles/Vol] 27.0 mmol/L 21.0-32.0 [facility] Free T4 [Mass/Vol] 1.11 ng/dL 0.76-1.46 [facility] Globulin (S) [Mass/Vol] 4.5 g/dL 2.2-4.[address] [facility] Urea nitrogen/Creatinine [Mass ratio] 11.5 mg/mg 10-20 [facility] Laboratory - Hematology and Cell countsOrdered By: Dr. Smiley on 01-28-2023 Erythrocyte distribution width (RBC) [Entitic vol] 49.7 fL 35.1-43.9 [facility] Erythrocyte distribution width (RBC) [Ratio] 14.9 % 11.6-14.6 [facility] Immature granulocytes/100 WBC (Bld) 0.100 % 0.0-0.9 [facility] Comment on above: IG% - Immature Granu locytes (promyelocytes, myelocytes and metamyelocytes) > 1% indicates that a LEFT SHIFT is Present. MCH (RBC) [Entitic mass] 28.0 pg 27.0-32.0 [facility] Nucleated RBC/100 WBC (Bld) [Ratio] 0 % 0-5 [facility] Laboratory - Hematology and Cell countsOrdered By: Dr. Lockwood on 01-28-2023 Erythrocyte distribution width (RBC) [Entitic vol] 47.3 fL 35.1-43.9 [facility] Erythrocyte distribution width (RBC) [Ratio] 14.8 % 11.6-14.6 [facility] Immature granulocytes/100 WBC (Bld) 0.200 % 0.0-0.9 [facility] Comment on above: IG% - Immature Granu locytes (promyelocytes, myelocytes and metamyelocytes) > 1% indicates that a LEFT SHIFT is Present. MCH (RBC) [Entitic mass] 29.0 pg 27.0-32.0 [facility] MCHC Auto (RBC) [Mass/Vol]Or dered By: Dr. Smiley on 01-28-2023 MCHC (RBC) [Mass/Vol] 30.9 g/dL 32-36 [facility] Auto (RBC) [Mass/Vol]Or dered By: Dr. Lockwood on 01-28-2023 MCHC (RBC) [Mass/Vol] 33.0 g/dL [facility] Comment on above: Delta: 30.9 on 01/280 No Panel InformationOrdered By: Dr. Lockwood on 01-28-2023 Estimated Creatinine Clearance Calc 37.74 ml/min [facility] Estimated GFR (MDRD) Amer 91 mL/min >60 [facility] Comment on above: GFR Calc Estimated GFR (MDRD) Non-Af Amer 75 mL/min >60 [facility] Comment on above: Non- GFR Calc Free Triiodothyronine (T3) pg/dL 2.9 pg/mL 2.18-3.98 [facility] No Panel InformationOrdered By: Dr. Smiley on 01-28-2023 Estimated GFR (MDRD) Amer 84 mL/min >60 [facility] Comment on above: GFR Calc Estimated GFR (MDRD) Non-Af Amer 70 mL/min >60 [facility] Comment on above: Non- GFR Calc Parathyroid Hormone (Intact) 112.9 pg/mL 18.4-80.1 [facility] Thyroid Stimulating Hormone (TSH) 0.02 uIU/mL 0.358-3.74 [facility] Vitamin D 25-Hydroxy 66.1 ng/mL [facility] Comment on above: Vitamin D 25(OH) Sta tus Range Deficiency <20 ng/mL (50nmol/L) Insufficiency 20 - 30 ng/mL (50 - 75 nmol/L) Sufficiency 30 - 100 ng/mL (75 - 250 nmol/L) Toxicity >100 ng/mL (>250 nmol/L) Platelets bldOrdered By: Dr. Smiley on 01-28-2023 Platelets (Bld) [#/Vol] 349 10*3/uL 150-450 [facility] Platelets bldOrdered By: Dr. Lockwood on 01-28-2023 Platelets (Bld) [#/Vol] 285 10*3/uL 150-450 [facility] Serum or plasma albumin melanie urement (mass/volume)Ordered By: Dr. Smiley on 01-28-2023 Albumin [Mass/Vol] 3.0 g/dL 3.2-5.0 [facility] Serum or plasma albumin melanie urement (mass/volume)Ordered By: Dr. Lockwood on 01-28-2023 Albumin [Mass/Vol] 2.9 g/dL 3.2-5.0 [facility] Serum or plasma albumin/glob ulin mass ratioOrdered By: Dr. Smiley on 01-28-2023 Albumin/Globulin [Mass ratio] 0.6 {ratio} 0.9-2.4 [facility] Serum or plasma calcium melanie urement (mass/volume)Ordered By: Dr. Smiley on 01-28-2023 Calcium [Mass/Vol] 11.5 mg/dL 8.5-10.1 [facility] Serum or plasma calcium melanie urement (mass/volume)Ordered By: Dr. Lockwood on 01-28-2023 Calcium [Mass/Vol] 11.4 mg/dL 8.5-10.1 [facility] Serum or plasma cholesterol in HDL measurement (mass/volume)Ordered By: Dr. Smiley on 01-28-2023 Cholesterol in HDL [Mass/Vol] 46 mg/dL >40 [facility] Comment on above: The drugs N-Acetylcy steine and Metamizole may falsely depress this assay. Reference Range HDL <40 mg/dL Low HDL Cholesterol HDL >or= 60 mg/dL High HDL Cholesterol Serum or plasma cholesterol in VLDL measurement (mass/volume)Ordered By: Dr. Smiley on 01-28-2023 Cholesterol in VLDL [Mass/Vol] 24 mg/dL 5-40 [facility] Serum or plasma creatinine m easurement (mass/volume)Ordered By: Dr. Smiley on 01-28-2023 Creatinine [Mass/Vol] 0.84 mg/dL 0.55-1.02 [facility] Comment on above: The validity of the calculated GFR & GFRAA in patients over 70 years has not been determined. Clinical correlation is essential. Serum or plasma creatinine m easurement (mass/volume)Ordered By: Dr. Lockwood on 01-28-2023 Creatinine [Mass/Vol] 0.78 mg/dL 0.55-1.02 [facility] Comment on above: The validity of the calculated GFR & GFRAA in patients over 70 years has not been determined. Clinical correlation is essential. Serum or plasma low density lipoprotein (LDL) cholesterol measurement (mass/volume)Ordered By: Dr. Smiley on 01-28-2023 Cholesterol in LDL [Mass/Vol] 75 mg/dL 0-130 [facility] Serum or plasma urea nitroge n measurement (mass/volume)Ordered By: Dr. Smiley on 01-28-2023 Urea nitrogen [Mass/Vol] 9 mg/dL 7-18 [facility] Thin prep Papanicolaou smear with manual screeningOrdered By: Dr. Smiley on 01-28-2023 Thin prep Papanicolaou smear with manual screening 22 U/L 15- [facility] Thin prep Papanicolaou smear with manual screening 10 01-12 [facility] Thin prep Papanicolaou smear with manual screeningOrdered By: Dr. Lockwood on 01-28-2023 Thin prep Papanicolaou smear with manual screening 18 U/L [facility] Thin prep Papanicolaou smear with manual screening 7 - [facility] Whole blood hemoglobin A1c/t otal hemoglobin ratio (mass fraction)Ordered By: Dr. Smiley on 01-28-2023 HbA1c (Bld) [Mass fraction] 7.5 % 3.8-5.6 [facility] Comment on above: Normal < 5.7 % Predi abetic 5.7 - 6.4 % Diabetic >or= 6.5 % Please note range changes. Basophil percentageOrdered B y: Dr. Smiley on 12-09-2022 Bilirubin [Mass/Vol] 0.20 mg/dL 0.20-1.00 [facility] Comment on above: For patients on eltr ombopag therapy, use of Dimension Pipestem TBIL is not recommended. Chloride [Moles/Vol] 101 mmol/L 98-107 [facility] Glucose [Mass/Vol] 168 mg/dL 74-106 [facility] Comment on above: Fasting Glucose resu lt greater than or equal to 126 mg/dL suggests DIABETES MELLITUS per A.D.A. criteria. Potassium [Moles/Vol] 3.7 mmol/L 3.5-5.1 [facility] Protein [Mass/Vol] 8.7 g/dL 6.4-8.2 [facility] Sodium [Moles/Vol] 133 mmol/L 136-145 [facility] Laboratory - Chemistry and C hemistry - challengeOrdered By: Dr. Smiley on 12-09-2022 ALP [Catalytic activity/Vol] 164 U/L 45-117 [facility] ALT [Catalytic activity/Vol] 27 U/L 13-56 [facility] CO2 [Moles/Vol] 25.0 mmol/L 21.0-32.0 [facility] Globulin (S) [Mass/Vol] 5.4 g/dL 2.2-4.2 [facility] Urea nitrogen/Creatinine [Mass ratio] 10.7 mg/mg 10-20 [facility] No Panel InformationOrdered By: Dr. Smiley on 12-09-2022 Estimated GFR (MDRD) Amer 67 mL/min >60 [facility] Comment on above: GFR Calc Estimated GFR (MDRD) Non-Af Amer 55 mL/min >60 [facility] Comment on above: Non- GFR Calc Parathyroid Hormone (Intact) 175.0 pg/mL 18.4-80.1 [facility] Vitamin D 25-Hydroxy 92.6 ng/mL [facility] Comment on above: Vitamin D 25(OH) Sta tus Range Deficiency <20 ng/mL (50nmol/L) Insufficiency 20 - 30 ng/mL (50 - 75 nmol/L) Sufficiency 30 - 100 ng/mL (75 - 250 nmol/L) Toxicity >100 ng/mL (>250 nmol/L) Serum or plasma albumin melanie urement (mass/volume)Ordered By: Dr. Smiley on 12-09-2022 Albumin [Mass/Vol] 3.3 g/dL 3.2-5.0 [facility] Serum or plasma albumin/glob ulin mass ratioOrdered By: Dr. Smiley on 12-09-2022 Albumin/Globulin [Mass ratio] 0.6 {ratio} 0.9-2.4 [facility] Serum or plasma calcium melanie urement (mass/volume)Ordered By: Dr. Smiley on 12-09-2022 Calcium [Mass/Vol] 11.4 mg/dL 8.5-10.1 [facility] Serum or plasma creatinine m easurement (mass/volume)Ordered By: Dr. Smiley on 12-09-2022 Creatinine [Mass/Vol] 1.03 mg/dL 0.55-1.02 [facility] Comment on above: The validity of the calculated GFR & GFRAA in patients over 70 years has not been determined. Clinical correlation is essential. Serum or plasma urea nitroge n measurement (mass/volume)Ordered By: Dr. Smiley on 12-09-2022 Urea nitrogen [Mass/Vol] 11 mg/dL 7-18 [facility] Thin prep Papanicolaou smear with manual screeningOrdered By: Dr. Smiley on 12-09-2022 Thin prep Papanicolaou smear with manual screening 20 U/L 15-37 [facility] Thin prep Papanicolaou smear with manual screening 7 5-15 [facility] Whole blood hemoglobin A1c/t otal hemoglobin ratio (mass fraction)Ordered By: Dr. Smiley on 12-09-2022 HbA1c (Bld) [Mass fraction] 7.4 % 3.8-5.6 [facility] Comment on above: Normal < 5.7 % Predi abetic 5.7 - 6.4 % Diabetic >or= 6.5 % Please note range changes. Absolute lymphocyte counton 07-14-2022 Lymphocytes Auto (Unsp spec) [#/Vol] 2.79 10*3/uL 0.83-4.51 [facility] Work Phone: Basophil percentageon 2021 Basophil percentage 25-50 SEEN /hpf 0-5 [facility] Work Phone: Basophils/100 WBC (Bld) 0.5 % 0-[address] [facility] Work Phone: Bilirubin [Mass/Vol] 0.30 mg/dL 0.20-1.00 [facility] Work Phone: Comment on above: For patients on eltr ombopag therapy, use of Dimension Pipestem TBIL is not recommended. Chloride [Moles/Vol] 102 mmol/L 98-107 [facility] Work Phone: Eosinophils/100 WBC (Bld) 3.2 % 0-5 [facility] Work Phone: Glucose [Mass/Vol] 143 mg/dL 74-106 [facility] Work Phone: [phone] Comment on above: Fasting Glucose resu lt greater than or equal to 126 mg/dL suggests DIABETES MELLITUS per A.D.A. criteria. Neutrophils (Bld) [#/Vol] 4.5 10*3/uL 2.0-7.7 [facility] Work Phone: [phone] Neutrophils/100 WBC (Bld) 54.7 % 47-70 [facility] Work Phone: Potassium [Moles/Vol] 4.9 mmol/L 3.5-5.1 [facility] Work Phone: [phone] Comment on above: Moderate Hemolysis, Result may be falsely increased. Protein [Mass/Vol] 8.3 g/dL 6.4-8.2 [facility] Work Phone: Sodium [Moles/Vol] 136 mmol/L 136-145 [facility] Work Phone: WBC (Bld) [#/Vol] 8.1 10*3/uL 4.4-11.0 [facility] Work Phone: Bilirubin Test strip Ql (U)o n 07-14-2022 Bilirubin Ql (U) Negative Negative [facility] Work Phone: Blood erythrocytes count (nu mber/volume)on 07-14-2022 RBC (Bld) [#/Vol] 4.15 10*6/uL 4.2-5.4 [facility] Work Phone: Blood hemoglobin measurement (mass/volume)on 07-14-2022 Hemoglobin (Bld) [Mass/Vol] 12.0 g/dL 12.0-15.0 [facility] Work Phone: Blood lymphocytes/100 leukoc yteson 07-14-2022 Lymphocytes/100 WBC (Bld) 34.4 % 19-41 [facility] Work Phone: Blood monocytes/100 leukocyt eson 07-14-2022 Monocytes/100 WBC (Bld) 6.8 % 0-[address] [facility] Work Phone: Blood platelet mean volumeon 07-14-2022 Platelet mean volume (Bld) [Entitic vol] 10.2 fL 6.2-12.0 [facility] Work Phone: Determination of erythrocyte mean corpuscular volume (MCV)on 07-14-2022 MCV (RBC) [Entitic vol] 90.8 fL 81-[address] [facility] Work Phone: Hematocrit Auto (Bld) [Volum e fraction]on 07-14-2022 Hematocrit (Bld) [Volume fraction] 37.7 % 37-47 [facility] Work Phone: Ketones Test strip Ql (U)on 07-14-2022 Ketones Ql (U) Negative Negative [facility] Work Phone: Laboratory - Chemistry and C hemistry - challengeon 07-14-2022 ALP [Catalytic activity/Vol] 131 U/L 45-117 [facility] Work Phone: ALT [Catalytic activity/Vol] 33 U/L 13-56 [facility] Work Phone: CO2 [Moles/Vol] 31.0 mmol/L 21.0-32.0 [facility] Work Phone: Globulin (S) [Mass/Vol] 5.0 g/dL 2.2-4.[address] [facility] Work Phone: Urea nitrogen/Creatinine [Mass ratio] 14.7 mg/mg 10-20 [facility] Work Phone: Laboratory - Hematology and Cell countson 07-14-2022 Erythrocyte distribution width (RBC) [Entitic vol] 49.9 fL 35.1-43.9 [facility] Work Phone: Erythrocyte distribution width (RBC) [Ratio] 15.1 % 11.6-14.6 [facility] Work Phone: Immature granulocytes/100 WBC (Bld) 0.400 % 0.0-0.9 [facility] Work Phone: Comment on above: IG% - Immature Granu locytes (promyelocytes, myelocytes and metamyelocytes) > 1% indicates that a LEFT SHIFT is Present. MCH (RBC) [Entitic mass] 28.9 pg 27.0-32.0 [facility] Work Phone: Nucleated RBC/100 WBC (Bld) [Ratio] 0 % 0-5 [facility] Work Phone: MCHC Auto (RBC) [Mass/Vol]on 07-14-2022 MCHC (RBC) [Mass/Vol] 31.8 g/dL 32-36 [facility] Work Phone: Mucus LM Ql (Urine sed)on Mucus Ql (Urine sed) 0 SEEN /hpf [facility] Work Phone: Nitrite Test strip Ql (U)on 07-14-2022 Nitrite Ql (U) Negative Negative [facility] Work Phone: No Panel Informationon 07-14 Estimated Creatinine Clearance Calc 40.37 ml/min [facility] Work Phone: Estimated GFR (MDRD) Amer 73 mL/min >60 [facility] Work Phone: Comment on above: GFR Calc Estimated GFR (MDRD) Non-Af Amer 60 mL/min >60 [facility] Work Phone: Comment on above: Non- GFR Calc Platelets bldon 07-14-2022 Platelets (Bld) [#/Vol] 267 10*3/uL 150-450 [facility] Work Phone: Protein Test strip Ql (U)on 07-14-2022 Protein Ql (U) 30 mg/dl Negative [facility] Work Phone: Serum or plasma albumin melanie urement (mass/volume)on 07-14-2022 Albumin [Mass/Vol] 3.3 g/dL 3.2-5.0 [facility] Work Phone: Serum or plasma albumin/glob ulin mass ratioon 07-14-2022 Albumin/Globulin [Mass ratio] 0.7 {ratio} 0.9-2.4 [facility] Work Phone: Serum or plasma calcium melanie urement (mass/volume)on 07-14-2022 Calcium [Mass/Vol] 11.4 mg/dL 8.5-10.1 [facility] Work Phone: Serum or plasma creatinine m easurement (mass/volume)on 07-14-2022 Creatinine [Mass/Vol] 0.95 mg/dL 0.55-1.[address] [facility] Work Phone: Comment on above: The validity of the calculated GFR & GFRAA in patients over 70 years has not been determined. Clinical correlation is essential. Serum or plasma urea nitroge n measurement (mass/volume)on 07-14-2022 Urea nitrogen [Mass/Vol] 14 mg/dL 7-18 [facility] Work Phone: Squamous epithelial cells de tection in urine sediment by light microscopyon 07-14-2022 Epithelial cells.squamous LM Ql (Urine sed) 0-5 SEEN /hpf 5-10 [facility] Work Phone: Thin prep Papanicolaou smear with manual screeningon 07-14-2022 Thin prep Papanicolaou smear with manual screening 44 U/L 15-37 [facility] Work Phone: Comment on above: Moderate Hemolysis, Result may be falsely increased. Thin prep Papanicolaou smear with manual screening 3 5-15 [facility] Work Phone: Urine blood detectionon 07-01 RBC Ql (U) 25 /ul Negative [facility] Work Phone: RBC Ql (U) 0 SEEN /hpf 0-5 [facility] Work Phone: Urine clarityon 07-14-2022 Clarity (U) Sl. Cloudy Clear [facility] Work Phone: Urine color determinationon 07-14-2022 Color (U) Yellow Yellow [facility] Work Phone: Urine glucose detectionon Glucose Ql (U) 1000 mg/dl Normal [facility] Work Phone: Urine leukocyte esterase det ection by dipstickon 07-14-2022 Leukocyte esterase Test strip Ql (U) 500 /ul Negative [facility] Work Phone: Urine pHon 07-14-2022 pH (U) 6.0 [pH] 5.0 - 8.0 [facility] Work Phone: Urine sediment bacteria coun t by microscopy (number/high power field)on 07-14-2022 Bacteria LM.HPF (Urine sed) [#/Area] 3 /[HPF] None Seen [facility] Work Phone: Urine specific gravity measu rementon 07-14-2022 Specific gravity (U) [Rel density] 1.015 1.002-1.030 [facility] Work Phone: Urobilinogen Auto test strip Ql (U)on 07-14-2022 Urobilinogen Ql (U) Normal mg/dl Normal [facility] Work Phone: CBC W Auto Differential pane l (Bld)on 05-07-2022 Basophils (Bld) [#/Vol] 0.05 10*3/uL Normal <0.11 [facility] Comment on above: Order Comment: Speci men Type: BLOOD SPECIMEN Ordering Facility: [facility] Address: [address] [address] Performed By: #### 5 7021-8 #### [facility] CLIA [id number] [address] [place] [address] [place] [facility] Basophils/100 WBC (Bld) 0.7 % Normal C [facility] Comment on above: Order Comment: Speci men Type: BLOOD SPECIMEN Ordering Facility: [facility] Address: [facility] [address] [place] [id number] Performed By: #### 5 7021-8 #### [facility] CLIA [id number] [address] [place] [address] [place] Differential cell count method Nom (Bld) Auto Normal [facility] Comment on above: Order Comment: Speci men Type: BLOOD SPECIMEN Ordering Facility: [facility] Address: [address] [place] [address] Performed By: #### 5 7021-8 #### [facility] CLIA [id number] [address] [place] [address] [place] Eosinophils (Bld) [#/Vol] 0.32 10*3/uL Normal <0.46 [facility] Comment on above: Order Comment: Speci men Type: BLOOD SPECIMEN Ordering Facility: [facility] Address: [address] [place] [address] Performed By: #### 5 7021-8 #### [facility] CLIA [id number] [address] [place] [address] [place] Eosinophils/100 WBC (Bld) 4.7 % Normal [facility] Comment on above: Order Comment: Speci men Type: BLOOD SPECIMEN Ordering Facility: [facility] Address: [address] [place] [address] Performed By: #### 5 7021-8 #### [facility] CLIA [id number] [address] [place] [address] [place] Erythrocyte distribution width (RBC) [Ratio] 14.6 % Normal 11.5-15.0 [facility] Comment on above: Order Comment: Speci men Type: BLOOD SPECIMEN Ordering Facility: [facility] Address: [address] [place] [address] Performed By: #### 5 7021-8 #### [facility] CLIA [id number] [address] [place] [address] [place] Hematocrit (Bld) [Volume fraction] 37.2 % Normal 36.0-46.0 [facility] Comment on above: Order Comment: Speci men Type: BLOOD SPECIMEN Ordering Facility: [facility] Address: [address] [place] [address] Performed By: #### 5 7021-8 #### [facility] CLIA [id number] [address] [place] [address] [place] Hemoglobin (Bld) [Mass/Vol] 12.0 g/dL Normal 11.5-15.5 [facility] Comment on above: Order Comment: Speci men Type: BLOOD SPECIMEN Ordering Facility: [facility] Address: [address] [place] [address] Performed By: #### 5 7021-8 #### [facility] CLIA [id number] [address] [place] [address] [place] IMMATURE GRAN % 0.1 % Normal [facility] Comment on above: Order Comment: Speci men Type: BLOOD SPECIMEN Ordering Facility: [facility] Address: [address] [place] [address] Performed By: #### 5 7021-8 #### [id number] [address] [place] [address] [place] IMMATURE GRAN ABS <0.03 Normal <0.10 [facility] Comment on above: Order Comment: Speci men Type: BLOOD SPECIMEN Ordering Facility: [facility] Address: [address] [place] [address] Performed By: #### 5 7021-8 #### [facility] CLIA [id number] [address] [place] [address] [place] Lymphocytes (Bld) [#/Vol] 2.03 10*3/uL Normal 1.00-4.00 [facility] Comment on above: Order Comment: Speci men Type: BLOOD SPECIMEN Ordering Facility: [facility] Address: [address] [place] [address] Performed By: #### 5 7021-8 #### [facility] CLIA [id number] [address] [place] [address] [place] Lymphocytes/100 WBC (Bld) 29.7 % Normal [facility] Comment on above: Order Comment: Speci men Type: BLOOD SPECIMEN Ordering Facility: [facility] Address: [address] [place] [address] Performed By: #### 5 7021-8 #### [facility] CLIA [id number] [address] [place] [address] [place] MCH (RBC) [Entitic mass] 28.5 pg Normal 26.0-34.0 [facility] Comment on above: Order Comment: Speci men Type: BLOOD SPECIMEN Ordering Facility: [facility] Address: [address] [place] [address] Performed By: #### 5 7021-8 #### [facility] CLIA [id number] [address] [place] [address] [place] MCHC (RBC) [Mass/Vol] 32.3 g/dL Normal 30.5-36.0 [facility] Comment on above: Order Comment: Speci men Type: BLOOD SPECIMEN Ordering Facility: [facility] Address: [address] [place] [address] Performed By: #### 5 7021-8 #### [facility] CLIA [id number] [address] [place] [address] [place] MCV (RBC) [Entitic vol] 88.4 fL Normal 80.0-100.0 C [facility] Comment on above: Order Comment: Speci men Type: BLOOD SPECIMEN Ordering Facility: [facility] Address: [address] [place] [address] Performed By: #### 5 7021-8 #### [facility] CLIA [id number] [address] [place] [address] [place] Monocytes (Bld) [#/Vol] 0.47 10*3/uL Normal <0.87 [facility] Comment on above: Order Comment: Speci men Type: BLOOD SPECIMEN Ordering Facility: [facility] Address: [address] [place], [place] [id number] Performed By: #### 5 7021-8 #### [facility] CLIA [id number] [address] [place] [address] [place] Monocytes/100 WBC (Bld) 6.9 % Normal [facility] Comment on above: Order Comment: Speci men Type: BLOOD SPECIMEN Ordering Facility: [facility] Address: [address] [place], [place] [id number] Performed By: #### 5 7021-8 #### [facility] CLIA [id number] [address] [place] [address] [place] Neutrophils (Bld) [#/Vol] 3.96 10*3/uL Normal 1.45-7.50 [facility] Comment on above: Order Comment: Speci men Type: BLOOD SPECIMEN Ordering Facility: [facility] Address: [address] [place], [place] [address] Performed By: #### 5 7021-8 #### [facility] CLIA [id number] [address] [place] [address] [place] Neutrophils/100 WBC (Bld) 57.9 % Normal [facility] Comment on above: Order Comment: Speci men Type: BLOOD SPECIMEN Ordering Facility: [facility] Address: [address] Performed By: #### 5 7021-8 #### [facility] CLIA [id number] [address] [place] [address] [place] Nucleated RBC (Bld) [#/Vol] 10*3/uL Normal <0.01 [facility] Comment on above: Order Comment: Speci men Type: BLOOD SPECIMEN Ordering Facility: [facility] Address: [address] [place], [place] [address] Performed By: #### 5 7021-8 #### [facility] CLIA [id number] [address] [place] [address] [place] Nucleated RBC/100 WBC (Bld) [Ratio] 0.0 /100 WBC Normal [facility] Comment on above: Order Comment: Speci men Type: BLOOD SPECIMEN Ordering Facility: [facility] Address: [address] [place], [place] [address] Performed By: #### 5 7021-8 #### [facility] CLIA [id number] [address] [place] [address] [place] Platelet mean volume (Bld) [Entitic vol] 10.0 fL Normal 9.0-12.7 [facility] Comment on above: Order Comment: Speci men Type: BLOOD SPECIMEN Ordering Facility: [facility] Address: [address] [place], [place] [address] Performed By: #### 5 7021-8 #### [facility] CLIA [id number] [address] [place] [address] [place] Platelets (Bld) [#/Vol] 246 10*3/uL Normal 150-400 [facility] Comment on above: Order Comment: Speci men Type: BLOOD SPECIMEN Ordering Facility: [facility] Address: [address] [place], [place] [address] Performed By: #### 5 7021-8 #### [facility] CLIA [id number] [address] [place] [address] [place] RBC (Bld) [#/Vol] 4.21 10*6/uL Normal 3.90-5.20 [facility] Comment on above: Order Comment: Speci men Type: BLOOD SPECIMEN Ordering Facility: [facility] Address: [address] [place], [place] [address] Performed By: #### 5 7021-8 #### [facility] CLIA [id number] [address] [place] [address] [place] WBC (Bld) [#/Vol] 6.84 10*3/uL Normal 3.70-11.00 [facility] Comment on above: Order Comment: Speci men Type: BLOOD SPECIMEN Ordering Facility: [facility] Address: [facility] [place] [address] Performed By: #### 5 7021-8 #### [facility] CLIA [id number] [address] [place] [id number] [place] CNOVSPon 05-07-2022 CNOVSP Visit (SP) Office (EVELYN) OLGA DONALDSON ([id number]) 1945 F Date Time Provider Department 05/07/22 [...] an every 2-week basis for 4 cycles ([id number]). Completed a year of trastuzumab 10/17/06. Referred back or anemia. Admitted to [facility] 12/02/2019 for chest pain with [...] 1.00 - 4.00 k/uL 2.70 2.30 2.03 Pondera% % 7.0 6.6 6.9 Abs Pondera <0.87 k/uL 0.49 0.47 0.47 Eosin% % 4.9 3.2 4.7 Abs Eosin <0.46 k/uL 0.34 0.23 0.32 Baso% % 0.7 0.6 0.7 Abs Baso <0.11 k/uL 0.05 0.04 0.05 Immature (more content not included)... Normal [facility] Ferritin SerPl-mCncon 2021 Ferritin [Mass/Vol] 808.0 ng/mL High 14.7-205.1 [facility] Comment on above: Order Comment: Speci men Type: BLOOD SPECIMEN Ordering Facility: [facility] Address: [address] [place] [address] Performed By: #### 5 0190-8, 2276-4 #### [facility] CLIA [id number] [address] [place] [address] [place] Iron and Iron binding capaci ty panelon 05-07-2022 Iron [Mass/Vol] 38 ug/dL Low 41-186 [facility] Comment on above: Order Comment: Speci men Type: BLOOD SPECIMEN Ordering Facility: [facility] Address: [address] [place] [address] Performed By: #### 5 0190-8, 6-4 #### [facility] CLIA [id number] [address] [place] [address] [place] Iron binding capacity [Mass/Vol] 240 ug/dL Normal 232-386 [facility] Comment on above: Order Comment: Speci men Type: BLOOD SPECIMEN Ordering Facility: [facility] Address: [address] [place] [address] Performed By: #### 5 0190-8, 6-4 #### [facility] CLIA [id number] [address] [place] [address] [place] Iron/TIBC [Molar ratio] 15.8 % Normal 15.0-57.0 [facility] Comment on above: Order Comment: Speci men Type: BLOOD SPECIMEN Ordering Facility: [facility] Address: [address] [place], [place] [address] Performed By: #### 5 0190-8, 2276-4 #### [facility] CLIA [id number] [address] [place] [address] [facility] Justine 02-10-2022 [place] Telephone (EVELYN) OLGA DONALDSON ([id number]) 1945 F Date Time Provider Department 02/10/22 [...] Date Reviewed: 05/07/2021 Reviewed by: 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 APRN.WILDLIFE REMOVAL SPECIALIST - Fully Assessed Reason for Visit: Results [...] MIST) 0.65 % nasal spray Use 1 [place] in the nose as needed. - diltiazem [...] by STACIE VARNER LPN on 02/10/22 Normal [facility] CBC W Auto Differential pane l (Bld)on 02-03-2022 Basophils (Bld) [#/Vol] 0.04 10*3/uL Normal <0.11 [facility] Comment on above: Order Comment: Speci men Type: BLOOD SPECIMEN Ordering Facility: [facility] Address: [address] [place] [address] Performed By: #### 5 7021-8 #### [facility] CLIA [id number] [address] [place] [address] [place] Basophils/100 WBC (Bld) 0.6 % Normal [facility] Comment on above: Order Comment: Speci men Type: BLOOD SPECIMEN Ordering Facility: [facility] Address: [address] [place] [address] Performed By: #### 5 7021-8 #### [facility] CLIA [id number] [address] [place] [address] [place] Differential cell count method Nom (Bld) Auto Normal [facility] Comment on above: Order Comment: Speci men Type: BLOOD SPECIMEN Ordering Facility: [facility] Address: [address] [place] [address] Performed By: #### 5 7021-8 #### [facility] CLIA [id number] [address] [place] [address] [place] Eosinophils (Bld) [#/Vol] 0.23 10*3/uL Normal <0.46 [facility] Comment on above: Order Comment: Speci men Type: BLOOD SPECIMEN Ordering Facility: [facility] Address: [address] [place] [address] Performed By: #### 5 7021-8 #### [facility] CLIA [id number] [address] [place] [address] [place] Eosinophils/100 WBC (Bld) 3.2 % Normal [facility] Comment on above: Order Comment: Speci men Type: BLOOD SPECIMEN Ordering Facility: [facility] Address: [address] [place] [address] Performed By: #### 5 7021-8 #### [facility] CLIA [id number] [address] [place] [address] [place] Erythrocyte distribution width (RBC) [Ratio] 14.3 % Normal 11.5-15.0 [facility] Comment on above: Order Comment: Speci men Type: BLOOD SPECIMEN Ordering Facility: [facility] Address: [address] [place] [address] Performed By: #### 5 7021-8 #### [facility] CLIA [id number] [address] [place] [address] [place] Hematocrit (Bld) [Volume fraction] 39.7 % Normal 36.0-46.0 [facility] Comment on above: Order Comment: Speci men Type: BLOOD SPECIMEN Ordering Facility: [facility] Address: [address] [place] [address] Performed By: #### 5 7021-8 #### [facility] CLIA [id number] [address] [place] [address] [place] Hemoglobin (Bld) [Mass/Vol] 12.8 g/dL Normal 11.5-15.5 [facility] Comment on above: Order Comment: Speci men Type: BLOOD SPECIMEN Ordering Facility: [facility] Address: [address] [place], [place] [address] Performed By: #### 5 7021-8 #### [facility] CLIA [id number] [address] [place] [address] [place] IMMATURE GRAN % 0.3 % Normal [facility] Comment on above: Order Comment: Speci men Type: BLOOD SPECIMEN Ordering Facility: [facility] Address: [address] [place] [address] Performed By: #### 5 7021-8 #### [facility] CLIA [id number] [address] [place] [address] [place] IMMATURE GRAN ABS <0.03 Normal <0.10 [facility] Comment on above: Order Comment: Speci men Type: BLOOD SPECIMEN Ordering Facility: [facility] Address: [address] [place] [address] Performed By: #### 5 7021-8 #### [facility] CLIA [id number] [address] [place] [address] [place] Lymphocytes (Bld) [#/Vol] 2.30 10*3/uL Normal 1.00-4.00 [facility] Comment on above: Order Comment: Speci men Type: BLOOD SPECIMEN Ordering Facility: [facility] Address: [address] [place] [address] Performed By: #### 5 7021-8 #### [facility] CLIA [id number] [address] [place] [address] [place] Lymphocytes/100 WBC (Bld) 32.1 % Normal [facility] Comment on above: Order Comment: Speci men Type: BLOOD SPECIMEN Ordering Facility: [facility] Address: [address] [place] [address] Performed By: #### 5 7021-8 #### [facility] CLIA [id number] [address] [place] [address] [place] MCH (RBC) [Entitic mass] 28.8 pg Normal 26.0-34.0 [facility] Comment on above: Order Comment: Speci men Type: BLOOD SPECIMEN Ordering Facility: [facility] Address: [address] [place], [place] [address] Performed By: #### 5 7021-8 #### [facility] CLIA [id number] [address] [place] [address] MCHC (RBC) [Mass/Vol] 32.2 g/dL Normal 30.5-36.0 [facility] Comment on above: Order Comment: Speci men Type: BLOOD SPECIMEN Ordering Facility: [facility] Address: [address] [place] [address] Performed By: #### 5 7021-8 #### [facility] [id number] [address] [place] [address] [place] MCV (RBC) [Entitic vol] 89.4 fL Normal 80.0-100.0 C [facility] Comment on above: Order Comment: Speci men Type: BLOOD SPECIMEN Ordering Facility: [facility] Address: [address] [place] [address] Performed By: #### 5 7021-8 #### [facility] [id number] [address] [place] [address] [place] Monocytes (Bld) [#/Vol] 0.47 10*3/uL Normal <0.87 [facility] Comment on above: Order Comment: Speci men Type: BLOOD SPECIMEN Ordering Facility: [facility] Address: [address] [place], [place] [address] Performed By: #### 5 7021-8 #### [facility] CLIA [id number] [address] [place] [address] [place] Monocytes/100 WBC (Bld) 6.6 % Normal [facility] Comment on above: Order Comment: Speci men Type: BLOOD SPECIMEN Ordering Facility: [facility] Address: [address] [place], [place] [address] Performed By: #### 5 7021-8 #### [facility] CLIA [id number] [address] [place] [address] [place] Neutrophils (Bld) [#/Vol] 4.11 10*3/uL Normal 1.45-7.50 [facility] Comment on above: Order Comment: Speci men Type: BLOOD SPECIMEN Ordering Facility: [facility] Address: [address] [place] [address] Performed By: #### 5 7021-8 #### [facility] CLIA [id number] [address] [place] [address] [place] Neutrophils/100 WBC (Bld) 57.2 % Normal [facility] Comment on above: Order Comment: Speci men Type: BLOOD SPECIMEN Ordering Facility: [facility] Address: [address] [place] [address] Performed By: #### 5 7021-8 #### [facility] CLIA [id number] [address] [place] [address] [place] Nucleated RBC (Bld) [#/Vol] 10*3/uL Normal <0.01 [facility] Comment on above: Order Comment: Speci men Type: BLOOD SPECIMEN Ordering Facility: [facility] Address: [address] [place] [address] Performed By: #### 5 7021-8 #### [facility] CLIA [id number] [address] [place] [address] [place] Nucleated RBC/100 WBC (Bld) [Ratio] 0.0 /100 WBC Normal [facility] Comment on above: Order Comment: Speci men Type: BLOOD SPECIMEN Ordering Facility: [facility] Address: [address] [place] [address] Performed By: #### 5 7021-8 #### [facility] CLIA [id number] [address] [place] [address] [place] Platelet mean volume (Bld) [Entitic vol] 10.3 fL Normal 9.0-12.7 [facility] Comment on above: Order Comment: Speci men Type: BLOOD SPECIMEN Ordering Facility: [facility] Address: [address] [place] [address] Performed By: #### 5 7021-8 #### [facility] CLIA [id number] [address] [place] [address] [place] Platelets (Bld) [#/Vol] 265 10*3/uL Normal 150-400 [facility] Comment on above: Order Comment: Speci men Type: BLOOD SPECIMEN Ordering Facility: [facility] Address: [address] [place] [address] Performed By: #### 5 7021-8 #### [facility] CLIA [id number] [address] [place] [address] [place] RBC (Bld) [#/Vol] 4.44 10*6/uL Normal 3.90-5.20 [facility] Comment on above: Order Comment: Speci men Type: BLOOD SPECIMEN Ordering Facility: [facility] Address: [address] [place] [address] Performed By: #### 5 7021-8 #### [facility] CLIA [id number] [address] [place] [address] [place] WBC (Bld) [#/Vol] 7.17 10*3/uL Normal 3.70-11.00 [facility] Comment on above: Order Comment: Speci men Type: BLOOD SPECIMEN Ordering Facility: [facility] Address: [address] [place], [place] [address] Performed By: #### 5 7021-8 #### [facility] CLIA [id number] [address] [place] [address] [place] FERRITIN BLDon 02-03-2022 Ferritin [Mass/Vol] 1132.0 ng/mL High 14.7-205.1 [facility] Comment on above: Order Comment: Speci men Type: BLOOD SPECIMEN Ordering Facility: [facility] Address: [address] [place] [address] Performed By: #### F ERR, IRON #### [facility] CLIA [id number] [address] [place] [address] [place] IRON + TIBCon 02-03-2022 Iron [Mass/Vol] 66 ug/dL Normal 41-186 [facility] Comment on above: Order Comment: Speci men Type: BLOOD SPECIMEN Ordering Facility: [facility] Address: [address] [place] [address] Performed By: #### F ERR, IRON #### [facility] CLIA [id number] [address] [place] [address] [place] Iron binding capacity [Mass/Vol] 286 ug/dL Normal 232-386 [facility] Comment on above: Order Comment: Speci men Type: BLOOD SPECIMEN Ordering Facility: [facility] Address: [address] [place] [address] Performed By: #### F ERR, IRON #### [facility] CLIA [id number] [address] [place] [address] [place] Iron/TIBC [Molar ratio] 23 % Normal 15-57 C [facility] Comment on above: Order Comment: Speci men Type: BLOOD SPECIMEN Ordering Facility: [facility] Address: [address] [place] [address] Performed By: #### F ERR, IRON #### [facility] CLIA [id number] [address] [place] [address] [place] Bacteria identified Anaer cx Nom (Unsp spec)on 12-02-2021 Anaerobic microbial culture No anaerobic bacteria isolated. [facility] Work Phone: Bacteria identified Cx Nom ( Wound)on 12-02-2021 Wound Culture Negative [facility] Work Phone: Wound Culture Staphylococcus epidermidis [facility] Work Phone: Wound Culture Corynebacterium striatum [facility] Work Phone: Gram stain for investigation of transfusion reactionon 12-02-2021 Microscopic observation Gram stain Nom (Unsp spec) [facility] Work Phone: CBC W Auto Differential pane l (Bld)on 11-04-2021 Basophils (Bld) [#/Vol] 0.05 10*3/uL Normal <0.11 [facility] Comment on above: Order Comment: Speci men Type: BLOOD SPECIMEN Ordering Facility: [facility] Address: [address] [place] [address] Performed By: #### 5 7021-8 #### [facility] CLIA [id number] [address] [place] [address] [place] Basophils/100 WBC (Bld) 0.7 % Normal C [facility] Comment on above: Order Comment: Speci men Type: BLOOD SPECIMEN Ordering Facility: [facility] Address: [address] [place] [address] Performed By: #### 5 7021-8 #### [facility] CLIA [id number] [address] [place] [address] [place] Differential cell count method Nom (Bld) Auto Normal [facility] Comment on above: Order Comment: Speci men Type: BLOOD SPECIMEN Ordering Facility: [facility] Address: [address] [address] Performed By: #### 5 7021-8 #### [facility] CLIA [id number] [address] [place] [address] [place] Eosinophils (Bld) [#/Vol] 0.34 10*3/uL Normal <0.46 [facility] Comment on above: Order Comment: Speci men Type: BLOOD SPECIMEN Ordering Facility: [facility] Address: [address] [address] Performed By: #### 5 7021-8 #### [facility] CLIA [id number] [address] [place] [address] [place] Eosinophils/100 WBC (Bld) 4.9 % Normal [facility] Comment on above: Order Comment: Speci men Type: BLOOD SPECIMEN Ordering Facility: [facility] Address: [address] [place], [place] [address] Performed By: #### 5 7021-8 #### [facility] CLIA [id number] [address] [place] [address] [place] Erythrocyte distribution width (RBC) [Ratio] 13.3 % Normal 11.5-15.0 [facility] Comment on above: Order Comment: Speci men Type: BLOOD SPECIMEN Ordering Facility: [facility] Address: [address] [place] [address] Performed By: #### 5 7021-8 #### [facility] CLIA [id number] [address] [place] [address] [place] Hematocrit (Bld) [Volume fraction] 40.4 % Normal 36.0-46.0 [facility] Comment on above: Order Comment: Speci men Type: BLOOD SPECIMEN Ordering Facility: [facility] Address: [address] [place], [place] [address] Performed By: #### 5 7021-8 #### [facility] CLIA [id number] [address] [place] [address] [place] Hemoglobin (Bld) [Mass/Vol] 12.9 g/dL Normal 11.5-15.5 [facility] Comment on above: Order Comment: Speci men Type: BLOOD SPECIMEN Ordering Facility: [facility] Address: [address] [place], [place] [address] Performed By: #### 5 7021-8 #### [facility] CLIA [id number] [address] [place] IMMATURE GRAN % 0.1 % Normal [facility] Comment on above: Order Comment: Speci men Type: BLOOD SPECIMEN Ordering Facility: [facility] Address: [address] [place] [address] Performed By: #### 5 7021-8 #### [facility] CLIA [id number] [address] [place] [address] [place] IMMATURE GRAN ABS <0.03 Normal <0.10 [facility] Comment on above: Order Comment: Speci men Type: BLOOD SPECIMEN Ordering Facility: [facility] Address: [address] [place] [address] Performed By: #### 5 7021-8 #### [facility] CLIA [id number] [address] [place] [address] [place] Lymphocytes (Bld) [#/Vol] 2.70 10*3/uL Normal 1.00-4.00 [facility] Comment on above: Order Comment: Speci men Type: BLOOD SPECIMEN Ordering Facility: [facility] Address: [address] [place] [address] Performed By: #### 5 7021-8 #### [facility] CLIA [id number] [address] [place] [address] [place] Lymphocytes/100 WBC (Bld) 38.6 % Normal [facility] Comment on above: Order Comment: Speci men Type: BLOOD SPECIMEN Ordering Facility: [facility] Address: [address] [place] [address] Performed By: #### 5 7021-8 #### [facility] CLIA [id number] [address] [place] [address] [place] MCH (RBC) [Entitic mass] 28.9 pg Normal 26.0-34.0 [facility] Comment on above: Order Comment: Speci men Type: BLOOD SPECIMEN Ordering Facility: [facility] Address: [address] [place], [place] [address] Performed By: #### 5 7021-8 #### [facility] CLIA [id number] [address] [place] [address] MCHC (RBC) [Mass/Vol] 31.9 g/dL Normal 30.5-36.0 [facility] Comment on above: Order Comment: Speci men Type: BLOOD SPECIMEN Ordering Facility: [facility] Address: [address] [place], [place] [address] Performed By: #### 5 7021-8 #### [facility] [id number] [address] [place] [address] [place] MCV (RBC) [Entitic vol] 90.4 fL Normal 80.0-100.0 C [facility] Comment on above: Order Comment: Speci men Type: BLOOD SPECIMEN Ordering Facility: [facility] Address: [address] [place] [address] Performed By: #### 5 7021-8 #### [facility] [id number] [address] [place] [address] [place] Monocytes (Bld) [#/Vol] 0.49 10*3/uL Normal <0.87 [facility] Comment on above: Order Comment: Speci men Type: BLOOD SPECIMEN Ordering Facility: [facility] Address: [address] [place], [place] [address] Performed By: #### 5 7021-8 #### [facility] CLIA [id number] [address] [place] [address] Monocytes/100 WBC (Bld) 7.0 % Normal [facility] Comment on above: Order Comment: Speci men Type: BLOOD SPECIMEN Ordering Facility: [facility] Address: [address] [place], [place] [address] Performed By: #### 5 7021-8 #### [facility] CLIA [id number] [address] [place] [address] [place] Neutrophils (Bld) [#/Vol] 3.40 10*3/uL Normal 1.45-7.50 [facility] Comment on above: Order Comment: Speci men Type: BLOOD SPECIMEN Ordering Facility: [facility] Address: [address] [place] [address] Performed By: #### 5 7021-8 #### [facility] CLIA [id number] [address] [place] [address] [place] Neutrophils/100 WBC (Bld) 48.7 % Normal [facility] Comment on above: Order Comment: Speci men Type: BLOOD SPECIMEN Ordering Facility: [facility] Address: [address] [place] [address] Performed By: #### 5 7021-8 #### [facility] CLIA [id number] [address] [place] [address] [place] Nucleated RBC (Bld) [#/Vol] 10*3/uL Normal <0.01 [facility] Comment on above: Order Comment: Speci men Type: BLOOD SPECIMEN Ordering Facility: [facility] Address: [address] [place] [address] Performed By: #### 5 7021-8 #### [facility] CLIA [id number] [address] [place] [address] [place] Nucleated RBC/100 WBC (Bld) [Ratio] 0.0 /100 WBC Normal [facility] Comment on above: Order Comment: Speci men Type: BLOOD SPECIMEN Ordering Facility: [facility] Address: [address] [place], [place] [id number] Performed By: #### 5 7021-8 #### [facility] CLIA [id number] [address] [place] [address] [place] Platelet mean volume (Bld) [Entitic vol] 10.1 fL Normal 9.0-12.7 [facility] Comment on above: Order Comment: Speci men Type: BLOOD SPECIMEN Ordering Facility: [facility] Address: [address] [place], [place] [address] Performed By: #### 5 7021-8 #### [facility] CLIA [id number] [address] [place] [address] [place] Platelets (Bld) [#/Vol] 246 10*3/uL Normal 150-400 [facility] Comment on above: Order Comment: Speci men Type: BLOOD SPECIMEN Ordering Facility: [facility] Address: [address] [place], [place] [address] Performed By: #### 5 7021-8 #### [facility] CLIA [id number] [address] [place] [address] [place] RBC (Bld) [#/Vol] 4.47 10*6/uL Normal 3.90-5.20 [facility] Comment on above: Order Comment: Speci men Type: BLOOD SPECIMEN Ordering Facility: [facility] Address: [address] [place], [place] [address] Performed By: #### 5 7021-8 #### [facility] CLIA [id number] [address] [place] [address] [place] WBC (Bld) [#/Vol] 6.99 10*3/uL Normal 3.70-11.00 [facility] Comment on above: Order Comment: Speci men Type: BLOOD SPECIMEN Ordering Facility: [facility] Address: [address] [place], [place] [address] Performed By: #### 5 7021-8 #### [facility] CLIA [id number] [address] [place] [address] [place] FERRITIN BLDon 11-04-2021 Ferritin [Mass/Vol] 1428.0 ng/mL High 14.7-205.1 [facility] Comment on above: Order Comment: Speci men Type: BLOOD SPECIMEN Ordering Facility: [facility] Address: [address] [place] [address] Performed By: #### Elise RUSH FERR #### [facility] CLIA [id number] [address] [place] [address] [place] IRON + TIBCon 11-04-2021 Iron [Mass/Vol] 60 ug/dL Normal 41-186 [facility] Comment on above: Order Comment: Speci men Type: BLOOD SPECIMEN Ordering Facility: [facility] Address: [address] [place] [address] Performed By: #### Elise RUSH FERR #### [facility] CLIA [id number] [address] [place] [address] OF [facility] Iron binding capacity [Mass/Vol] 242 ug/dL Normal 232-386 [facility] Comment on above: Order Comment: Speci men Type: BLOOD SPECIMEN Ordering Facility: [facility] Address: [address] [place] [address] Performed By: #### Elise RUSH, FERR #### [facility] CLIA [id number] [address] [place] [address] Iron/TIBC [Molar ratio] 25 % Normal 15-57 C [facility] Comment on above: Order Comment: Speci men Type: BLOOD SPECIMEN Ordering Facility: [facility] Address: [address] [place] [address] Performed By: #### Elise RUSH FERR #### [facility] CLIA [id number] [address] [place] [address] [place] Justine 09-29-2021 JOCELYNE Telephone (HEMAWS) OLGA DONALDSON ([id number]) 1945 F Date Time Provider Department 09/29/21 JOSEPH ROLLE During your visit today, we recorded the following information about you: Joseph Rolle DO 09/29/2021 8:54 AM Signed Can let her know I received lab results from Dr. Smilye's office from last fall. I'd like her [...] Date Reviewed: 05/07/2021 Reviewed by: 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 APRN.WILDLIFE REMOVAL SPECIALIST - Fully Assessed Reason for Visit: Results [95] Follow Up [171] Primary Visit Diagnosis:Anemia, unspecified type [D64.9] Order(s):CBC + DIFF [SQCBCDIF] Order #: [id number] FUTURE COMP METABOLIC PANEL [SQCMP] Order #: [id number] FUTURE PROTEIN ELECTROPHORESIS SERUM W/INTERP [SQSEPG] Order #: [id number] FUTURE MONOCLONAL PROTEIN, SERUM (BLOOD) [SQSERMPA] Order #: [id number] FUTURE Prescriptions as of 04/12/2022 - ascorbic [...] MIST) 0.65 % nasal spray Use 1 [place] in the nose as needed. - diltiazem [...] Specified Conge (more content not included)... Normal [facility] Justine 05-09-2021 MARLIN Telephone (EVELYN) OLGA DONALDSON ([id number]) 1945 F Date Time Provider Department 05/09/21 [...] Date Reviewed: 05/07/2021 Reviewed by: 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 APRN.WILDLIFE REMOVAL SPECIALIST - Fully Assessed Reason for Visit: Results [...] MIST) 0.65 % nasal spray Use 1 [place] in the nose as needed. - diltiazem [...] by STACIE VARNER LPN on 05/09/21 Normal [facility] - Specimen inform ationon 03-27-2021 Specimen source Nom (Unsp spec) Stool [facility] No Panel Informationon 03-27 Occult Blood Diagnostic Positive [facility] FERRITIN BLDon 03-22-2021 Ferritin [Mass/Vol] 1064.0 ng/mL High 14.7 - 2 05.1 ng/mL [facility] CULTURE FUNGUSon 02-08-2018 CULTURE FUNGUS 1 Organism Nithya albicans Many Normal [facility] Comment on above: Performed By: #### C /FUN, S/FUN ####[facility] [id number] [place] [address] STAIN FUNGUSon 01-19-2018 STAIN FUNGUS STAIN FUNGUS --> Status: F 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 Direct exam by Calcofluor stain. Direct exam by Calcofluor stain. Normal [facility] Comment on above: Performed By: #### C /FUN, S/FUN ####[facility] [id number] [place] [address] Office Visit: Consult- Romero mina 01-13-2017 Adolescent depression screening assessment Adolescent depression screening assessment Invalid Interpretation Code [facility] Work Phone: [phone] Adult depression screening assessment Adolescent depression screening assessment [facility] Work Phone: [phone] Documentation of current medications (procedure) Done Invalid Interpretation Code [facility] Work Phone: [phone] Fall risk assessment Fall risk assessment [facility] Work Phone: [phone] Tobacco smoking status NHIS Never [facility] Work Phone: [phone] Tobacco smoking status NHIS Former smoker [facility] Work Phone: [phone] Tobacco use CPHS Former smoker Invalid Interpretation Code [facility] Work Phone: [phone] Clinical 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 Left ventricular Ejection fraction 70 % [facility] Work Phone: [phone] Office Visiton 08-29-2015 cardiac risk group [facility] Work Phone: [phone] General cardiovascular disease 10Y risk [#] [facility]Agostino Not enough information [facility] Work Phone: [phone] Replaced Document: Midmark E CG Observationson 08-29-2015 EKG QRS axis 29 deg [facility] Work Phone: [phone] electrocardiogram interpretation Sinus Tachycardia -With rate variation cv = 10.WITHIN NORMAL LIMITS Invalid Interpretation Code [facility] Work Phone: [phone] GE use only - for LinkLogic import when terms are not otherwise specified 411 ms Invalid Interpretation Code [facility] Work Phone: [phone] Interpretation Sinus Tachycardia -With rate variation cv = 10.WITHIN NORMAL LIMITS [facility] Work Phone: [phone] P [place] 41 deg [facility] Work Phone: [phone] P wave axis, electrocardiogram 41 deg Invalid Interpretation Code [facility] Work Phone: [phone] MS Interval 134 ms [facility] Work Phone: [phone] MS interval, electrocardiogram 134 ms Invalid Interpretation Code [facility] Work Phone: [phone] Pulse (Heart Rate) 109 /min Invalid Interpretation Code [facility] Work Phone: [phone] QRS axis, electrocardiogram 29 deg Invalid Interpretation Code [facility] Work Phone: [phone] QRS Duration 80 ms [facility] Work Phone: [phone] QRS duration, electrocardiogram 80 ms Invalid Interpretation Code [facility] Work Phone: [phone] QT Interval new path ms [facility] Work Phone: [phone] QT interval, electrocardiogram new path ms Invalid Interpretation Code [facility] Work Phone: [phone] QTc Carney 411 ms [facility] Work Phone: [phone] T [place] 37 deg [facility] Work Phone: [phone] T wave axis, electrocardiogram 37 deg Invalid Interpretation Code [facility] Work Phone: [phone] Bacteria identified Anaer cx Nom (Unsp spec) Anaerobic microbial culture No anaerobic bacteria isolated. [facility] Work Phone: [phone] Bacteria identified Cx Nom ( Wound) Wound Culture Negative [facility] Work Phone: [phone] Wound Culture Staphylococcus epidermidis [facility] Work Phone: [phone] Wound Culture Corynebacterium striatum [facility] Work Phone: Culture, urine Bacteria identified Cx Nom (U) Klebsiella pneumoniae sp pneum [facility] Work Phone: Gram stain for investigation of transfusion reaction Microscopic observation Gram stain Nom (Unsp spec) [facility] Work Phone: Vital Signs Date Time Vital Sign Value Performing Clinician Facility 03-25-2025 13:49-0400 Body temperature 98.9 [degF] Dr. Ramone Smiley MD Work Phone: [phone] [place] [address] 03-25-2025 13:49-0400 Diastolic blood pressure 60 mm[Hg] Dr. Ramone Smiley MD Work Phone: 5(755)313-222886 [place] [address] 03-25-2025 13:49-0400 Heart rate 102 /min Dr. Ramone Smiley MD Work Phone: 3(812)795-744186 [place] [address] 03-25-2025 13:49-0400 Inhaled oxygen flow rate 2 L/min Dr. Ramone Smiley MD Work Phone: 1(524)718-085786 [place] [address] 03-25-2025 13:49-0400 Respiratory rate 16 /min Dr. Ramone Smiley MD Work Phone: 5(310)877-856386 [place] [address] 03-25-2025 13:49-0400 SaO2% (BldA) [Mass fraction] 100 % Dr. Ramone Smiley MD Work Phone: 1(352)958-558486 [place] [address] 03-25-2025 13:49-0400 Systolic blood pressure 136 mm[Hg] Dr. Ramone Smiley MD Work Phone: 2(661)115-688986 [place] [address] 03-25-2025 03:15-0400 Body mass index (BMI) [Ratio] 30.4 kg/m2 Dr. Ramone Smiley MD Work Phone: 3(823)257-059386 [place] [address] 03-25-2025 03:15-0400 Body weight 77.[address] Ramone Smiley MD Work Phone: 7(391)774-929486 [place] [address] 03-24-2025 14:00-0400 Body height 160.[address] Ramone Smiley MD Work Phone: 3(476)791-036686 [place] [address] 03-21-2025 22:28-0400 Body temperature 98.4 [degF] Dr. Ramone Smiley MD Work Phone: 7(478)245-456686 [place] [address] 03-21-2025 22:28-0400 Diastolic blood pressure 81 mm[Hg] Dr. Ramone Smiley MD Work Phone: 4(214)009-939486 [place] [address] 03-21-2025 22:28-0400 Heart rate 86 /min Dr. Ramone Smiley MD Work Phone: 4(960)202-721186 [place] [address] 03-21-2025 22:28-0400 Respiratory rate 19 /min Dr. Ramone Smiley MD Work Phone: 5(334)846-652686 [place] [address] 03-21-2025 22:28-0400 SaO2% (BldA) [Mass fraction] 94 % Dr. Ramone Smiley MD Work Phone: 6(580)017-213486 [place] [address] 03-21-2025 22:28-0400 Systolic blood pressure 136 mm[Hg] Dr. Ramone Smiley MD Work Phone: 2(474)114-028286 [place] [address] 03-21-2025 21:00-0400 Inhaled oxygen flow rate 2 L/min Dr. Ramone Smiley MD Work Phone: 1(624)692-788586 [place] [address] 03-21-2025 13:31-0400 Body mass index (BMI) [Ratio] 27.6 kg/m2 Dr. Ramone Smiley MD Work Phone: 5(630)009-353586 [place] [address] 03-21-2025 13:31-0400 Body weight 70.[address] Ramone Smiley MD Work Phone: 5(529)345-458386 [place] [address] 03-21-2025 13:23-0400 Body height 160.[address] Ramone Smiley MD Work Phone: 4(777)799-487786 [place] [address] 03-04-2025 23:10-0400 Body temperature 98 [degF] Dr. Ramone Smiley MD Work Phone: 2(785)644-063586 [place] [address] 03-04-2025 23:10-0400 Diastolic blood pressure 80 mm[Hg] Dr. Ramone Smiley MD Work Phone: 6(155)811-023086 [place] [address] 03-04-2025 23:10-0400 Heart rate 81 /min Dr. Ramone Smiley MD Work Phone: 1(869)945-499586 [place] [address] 03-04-2025 23:10-0400 Respiratory rate 16 /min Dr. Ramone Smiley MD Work Phone: 3(933)816-610686 [place] [address] 03-04-2025 23:10-0400 SaO2% (BldA) [Mass fraction] 95 % Dr. Ramone Smiley MD Work Phone: 2(024)067-767986 [place] [address] 03-04-2025 23:10-0400 Systolic blood pressure 135 mm[Hg] Dr. Ramone Smiley MD Work Phone: 5(004)928-673186 [place] [address] 03-04-2025 19:04-0400 Inhaled oxygen flow rate 2 L/min Dr. Ramone Smiley MD Work Phone: 8(487)430-559086 [place] [address] 03-04-2025 18:54-0400 Body mass index (BMI) [Ratio] 28 kg/m2 Dr. Ramone Smiley MD Work Phone: 9(814)275-571086 [place] [address] 03-04-2025 18:54-0400 Body weight 71.[address] Ramone Smiley MD Work Phone: 7(732)114-302286 [place] [address] 03-04-2025 18:37-0400 Body height 160.[address] Ramone Smiley MD Work Phone: 3(460)912-793386 [place] [address] 02-19-2025 00:38-0400 Body temperature 98.7 [degF] Dr. Ramone Smiley MD Work Phone: 2(692)950-962486 [place] [address] 02-19-2025 00:38-0400 Diastolic blood pressure 86 mm[Hg] Dr. Ramone Smiley MD Work Phone: 4(447)062-649186 [place] [address] 02-19-2025 00:38-0400 Heart rate 98 /min Dr. Ramone Smiley MD Work Phone: 2(121)050-839686 [place] [address] 02-19-2025 00:38-0400 Respiratory rate 22 /min Dr. Ramone Smiley MD Work Phone: 7(021)372-282886 [place] [address] 02-19-2025 00:38-0400 SaO2% (BldA) [Mass fraction] 98 % Dr. Ramone Smiley MD Work Phone: 3(752)329-548486 [place] [address] 02-19-2025 00:38-0400 Systolic blood pressure 122 mm[Hg] Dr. Ramone Smiley MD Work Phone: 6(084)401-910786 [place] [address] 02-19-2025 00:23-0400 Inhaled oxygen flow rate 2 L/min Dr. Ramone Smiley MD Work Phone: [facility] 02-18-2025 20:51-0400 Body height 160.[address] Ramone Smiley MD Work Phone: [facility] 02-18-2025 20:51-0400 Body mass index (BMI) [Ratio] 30.4 kg/m2 Dr. Ramone Smiley MD Work Phone: 7(608)031-759696 [place] [address] 02-18-2025 20:51-0400 Body weight 77.[address] Ramone Smiley MD Work Phone: 1(150)943-238186 [place] [address] 02-17-2025 18:40-0400 Heart rate 78 /min Dr. Ramone Smiley MD Work Phone: 7(890)880-423386 [place] [address] 02-17-2025 18:40-0400 Inhaled oxygen flow rate 2 L/min Dr. Ramone Smiley MD Work Phone: 2(139)115-067786 [place] [address] 02-17-2025 18:40-0400 Respiratory rate 18 /min Dr. Ramone Smiley MD Work Phone: 4(784)094-051086 [place] [address] 02-17-2025 18:40-0400 SaO2% (BldA) [Mass fraction] 94 % Dr. Ramone Smiley MD Work Phone: 2(632)842-912486 [place] [address] 02-17-2025 18:08-0400 Body temperature 98.9 [degF] Dr. Ramone Smiley MD Work Phone: 3(660)945-777096 [place] [address] 02-17-2025 18:08-0400 Diastolic blood pressure 54 mm[Hg] Dr. Ramone Smiley MD Work Phone: 5(410)074-794296 [place] [address] 02-17-2025 18:08-0400 Systolic blood pressure 137 mm[Hg] Dr. Ramone Smiley MD Work Phone: 6(353)248-008886 [place] [address] 02-17-2025 04:49-0400 Body mass index (BMI) [Ratio] 29.4 kg/m2 Dr. Ramone Smiley MD Work Phone: 7(531)743-736596 [place] [address] 02-17-2025 04:49-0400 Body weight 75.[address] Ramone Smiley MD Work Phone: 7(207)826-811596 [place] [address] 02-15-2025 15:20-0400 Body height 160.[address] Ramone Smiley MD Work Phone: 4(961)308-383486 [place] [address] 02-15-2025 13:54-0400 Body temperature 99.6 [degF] Dr. Ramone Smiley MD Work Phone: 5(795)606-990386 [place] [address] 02-15-2025 13:54-0400 Diastolic blood pressure 53 mm[Hg] Dr. Ramone Smiley MD Work Phone: 5(902)481-578386 [place] [address] 02-15-2025 13:54-0400 Heart rate 98 /min Dr. Ramone Smiley MD Work Phone: 9(478)293-499586 [place] [address] 02-15-2025 13:54-0400 Inhaled oxygen flow rate 3 L/min Dr. aRmone Smiley MD Work Phone: 9(571)698-028586 [place] [address] 02-15-2025 13:54-0400 Respiratory rate 22 /min Dr. Ramone Smiley MD Work Phone: 7(611)887-093586 [place] [address] 02-15-2025 13:54-0400 SaO2% (BldA) [Mass fraction] 98 % Dr. Ramone Smiley MD Work Phone: 3(110)320-620886 [place] [address] 02-15-2025 13:54-0400 Systolic blood pressure 110 mm[Hg] Dr. Ramone Smiley MD Work Phone: 6(383)092-190286 [place] [address] 02-15-2025 08:36-0400 Body height 160.[address] Ramone Smiley MD Work Phone: 9(487)431-370186 [place] [address] 02-15-2025 08:36-0400 Body mass index (BMI) [Ratio] 30.4 kg/m2 Dr. Ramone Smiley MD Work Phone: 8(644)153-950186 [place] [address] 02-15-2025 08:36-0400 Body weight 78.[address] Ramone Smiley MD Work Phone: 1(720)201-054686 [place] [address] 02-13-2025 16:00-0400 Inhaled oxygen flow rate 2 L/min Dr. Ramone Smiley MD Work Phone: 4(034)339-459286 [place] [address] 02-13-2025 14:04-0400 Body temperature 98.4 [degF] Dr. Ramone Smiley MD Work Phone: 4(490)648-420686 [place] [address] 02-13-2025 14:04-0400 Heart rate 94 /min Dr. Ramone Smiley MD Work Phone: 9(750)972-617986 [place] [address] 02-13-2025 14:04-0400 Respiratory rate 20 /min Dr. Ramone Smiley MD Work Phone: 9(181)971-136586 [place] [address] 02-13-2025 14:04-0400 SaO2% (BldA) [Mass fraction] 94 % Dr. Ramone Smiley MD Work Phone: 4(902)625-529186 [place] [address] 02-13-2025 08:41-0400 Diastolic blood pressure 51 mm[Hg] Dr. Ramone Smiley MD Work Phone: 7(439)630-087586 [place] [address] 02-13-2025 08:41-0400 Systolic blood pressure 132 mm[Hg] Dr. Ramone Smiley MD Work Phone: 7(703)715-233986 [place] [address] 02-10-2025 13:27-0400 Body height 160.[address] Ramone Smiley MD Work Phone: 8(807)744-927086 [place] [address] 02-10-2025 13:27-0400 Body weight 76.[address] Ramone Smiley MD Work Phone: 3(244)443-862086 [place] [address] 02-09-2025 16:43-0400 Body mass index (BMI) [Ratio] 29.9 kg/m2 Dr. Ramone Smiley MD Work Phone: 5(624)726-005986 [place] [address] 02-09-2025 15:12-0400 Inhaled oxygen flow rate 2 L/min Dr. Ramone Smiley MD Work Phone: 4(641)041-368186 [place] [address] 02-09-2025 15:12-0400 SaO2% (BldA) [Mass fraction] 91 % Dr. Ramone Smiley MD Work Phone: 5(751)996-993586 [place] [address] 02-09-2025 15:08-0400 Body temperature 99 [degF] Dr. Ramone Smiley MD Work Phone: [facility] 02-09-2025 15:08-0400 Diastolic blood pressure 46 mm[Hg] Dr. Ramone Smiley MD Work Phone: 6(934)611-921286 [place] [address] 02-09-2025 15:08-0400 Heart rate 94 /min Dr. Ramone Smiley MD Work Phone: 2(459)500-248886 [place] [address] 02-09-2025 15:08-0400 Respiratory rate 25 /min Dr. Ramone Smiley MD Work Phone: 3(142)859-519886 [place] [address] 02-09-2025 15:08-0400 Systolic blood pressure 136 mm[Hg] Dr. Ramone Smiley MD Work Phone: 0(566)463-228886 [place] [address] 02-09-2025 11:52-0400 Body height 160.[address] Ramone Smiley MD Work Phone: 8(798)824-428886 [place] [address] 02-09-2025 11:52-0400 Body mass index (BMI) [Ratio] 30.1 kg/m2 Dr. Ramone Smiley MD Work Phone: 1(580)230-255686 [place] [address] 02-09-2025 11:52-0400 Body weight 77.[address] Ramone Smiley MD Work Phone: 7(481)428-319886 [place] [address] 02-06-2025 15:38-0400 Body temperature 97.5 [degF] Dr. Ramone Smiley MD Work Phone: 8(641)909-685486 [place] [address] 02-06-2025 15:38-0400 Diastolic blood pressure 81 mm[Hg] Dr. Ramone Smiley MD Work Phone: 3(772)099-498486 [place] [address] 02-06-2025 15:38-0400 Heart rate 74 /min Dr. Ramone Smiley MD Work Phone: 7(780)731-896386 [place] [address] 02-06-2025 15:38-0400 Respiratory rate 18 /min Dr. Ramone Smiley MD Work Phone: 0(407)405-085486 [place] [address] 02-06-2025 15:38-0400 SaO2% (BldA) [Mass fraction] 93 % Dr. Ramone Smiley MD Work Phone: 3(502)480-930796 [place] [address] 02-06-2025 15:38-0400 Systolic blood pressure 117 mm[Hg] Dr. Ramone Smiley MD Work Phone: 8(053)872-838486 [place] [address] 02-06-2025 07:36-0400 Inhaled oxygen flow rate 2 L/min Dr. Ramone Smiley MD Work Phone: 6(850)524-808486 [place] [address] 02-04-2025 12:34-0400 Body height 160.[address] Ramone Smiley MD Work Phone: 3(397)486-027786 [place] [address] 02-04-2025 12:34-0400 Body mass index (BMI) [Ratio] 27.8 kg/m2 Dr. Ramone Smiley MD Work Phone: 9(679)013-037686 [place] [address] 02-04-2025 12:34-0400 Body weight 71.[address] Ramone Smiley MD Work Phone: 8(961)207-094986 [place] [address] 02-04-2025 11:06-0400 Body temperature 98.6 [degF] Dr. Ramone Smiley MD Work Phone: 7(457)083-648486 [place] [address] 02-04-2025 11:06-0400 Diastolic blood pressure 46 mm[Hg] Dr. Ramone Smiley MD Work Phone: 4(889)358-997186 [place] [address] 02-04-2025 11:06-0400 Heart rate 88 /min Dr. Ramone Smiley MD Work Phone: 3(526)644-558686 [place] [address] 02-04-2025 11:06-0400 Respiratory rate 30 /min Dr. Ramone Smiley MD Work Phone: 3(940)099-070386 [place] [address] 02-04-2025 11:06-0400 SaO2% (BldA) [Mass fraction] 99 % Dr. Ramone Smiley MD Work Phone: 1(497)764-725886 [place] [address] 02-04-2025 11:06-0400 Systolic blood pressure 111 mm[Hg] Dr. Ramone Smiley MD Work Phone: 2(485)900-044186 [place] [address] 02-04-2025 11:00-0400 Inhaled oxygen flow rate 3 L/min Dr. Ramone Smiley MD Work Phone: 5(430)937-457096 [place] [address] 02-04-2025 06:20-0400 Body height 160.[address] Ramone Smiley MD Work Phone: 0(527)634-360686 [place] [address] 02-04-2025 06:20-0400 Body mass index (BMI) [Ratio] 29.9 kg/m2 Dr. Ramone Smiley MD Work Phone: 3(970)604-624086 [place] [address] 02-04-2025 06:20-0400 Body weight 76.[address] Ramone Smiley MD Work Phone: 9(012)913-686086 [place] [address] 01-31-2025 06:28-0400 Body mass index (BMI) [Ratio] 27.4 kg/m2 Dr. Ramone Smiley MD Work Phone: 3(759)431-939286 [place] [address] 01-31-2025 06:28-0400 Body weight 70.[address] Ramone Smiley MD Work Phone: 7(976)735-152186 [place] [address] 01-31-2025 06:28-0400 Diastolic blood pressure 59 mm[Hg] Dr. Ramone mSiley MD Work Phone: 0(037)409-612586 [place] [address] 01-31-2025 06:28-0400 Heart rate 95 /min Dr. Ramone Smiley MD Work Phone: 7(523)991-197886 [place] [address] 01-31-2025 06:28-0400 Respiratory rate 18 /min Dr. Ramone Smiley MD Work Phone: 4(489)873-667386 [place] [address] 01-31-2025 06:28-0400 SaO2% (BldA) [Mass fraction] 95 % Dr. Ramone Smiley MD Work Phone: 0(012)496-177186 [place] [address] 01-31-2025 06:28-0400 Systolic blood pressure 107 mm[Hg] Dr. Ramone Smiley MD Work Phone: 7(248)059-817786 [place] [address] 01-26-2025 05:13-0400 Body temperature 98.3 [degF] Dr. Ramone Smiley MD Work Phone: 3(483)661-516086 [place] [address] 01-26-2025 05:13-0400 Diastolic blood pressure 72 mm[Hg] Dr. Ramone Smiley MD Work Phone: [facility] 01-26-2025 05:13-0400 Heart rate 83 /min Dr. Ramone Smiley MD Work Phone: 3(879)742-889886 [place] [address] 01-26-2025 05:13-0400 Respiratory rate 18 /min Dr. Ramone Smiley MD Work Phone: 8(382)555-208286 [place] [address] 01-26-2025 05:13-0400 SaO2% (BldA) [Mass fraction] 97 % Dr. Ramone Smiley MD Work Phone: 4(428)698-896386 [place] [address] 01-26-2025 05:13-0400 Systolic blood pressure 116 mm[Hg] Dr. Ramone Smiley MD Work Phone: 4(558)903-741586 [place] [address] 01-26-2025 03:02-0400 Body height 160.[address] Ramone Smiley MD Work Phone: 5(715)717-836886 [place] [address] 01-26-2025 03:02-0400 Body mass index (BMI) [Ratio] 31.4 kg/m2 Dr. Ramone Smiley MD Work Phone: 6(541)055-491786 [place] [address] 01-26-2025 03:02-0400 Body weight 80.[address] Ramone Smiley MD Work Phone: 7(716)448-446686 [place] [address] 01-24-2025 13:57-0400 Body temperature 97.4 [degF] Dr. Ramone Smiley MD Work Phone: 4(740)977-543786 [place] [address] 01-24-2025 13:57-0400 Diastolic blood pressure 68 mm[Hg] Dr. Ramone Smiley MD Work Phone: 5(911)573-298786 [place] [address] 01-24-2025 13:57-0400 Heart rate 87 /min Dr. Ramone Smiley MD Work Phone: 6(850)729-437786 [place] [address] 01-24-2025 13:57-0400 Respiratory rate 16 /min Dr. Ramone Smiley MD Work Phone: 2(745)208-535286 [place] [address] 01-24-2025 13:57-0400 SaO2% (BldA) [Mass fraction] 97 % Dr. Ramone Smiley MD Work Phone: 6(157)432-247996 [place] [address] 01-24-2025 13:57-0400 Systolic blood pressure 111 mm[Hg] Dr. Ramone Smiley MD Work Phone: 4(565)550-118496 [place] [address] 01-24-2025 05:23-0400 Body mass index (BMI) [Ratio] 30.7 kg/m2 Dr. Ramone Smiley MD Work Phone: 3(386)263-285386 [place] [address] 01-24-2025 05:23-0400 Body weight 78.[address] Ramone Smiley MD Work Phone: 6(063)117-278586 [place] [address] 01-22-2025 14:00-0400 Inhaled oxygen concentration 24 % Dr. Ramone Smiley MD Work Phone: 6(998)876-198786 [place] [address] 01-22-2025 11:00-0400 Inhaled oxygen flow rate 2 L/min Dr. Ramone Smiley MD Work Phone: 9(296)355-391786 [place] [address] 01-20-2025 10:06-0400 Body height 160.[address] Ramone Smiley MD Work Phone: 8(054)966-452386 [place] [address] 01-15-2025 18:58-0400 Body temperature 97.9 [degF] Dr. Ramone Smiley MD Work Phone: 6(991)961-556986 [place] [address] 01-15-2025 18:58-0400 Diastolic blood pressure 70 mm[Hg] Dr. Ramone Smiley MD Work Phone: 5(228)065-055586 [place] [address] 01-15-2025 18:58-0400 Heart rate 69 /min Dr. Ramone Smiley MD Work Phone: 3(775)316-667686 [place] [address] 01-15-2025 18:58-0400 Respiratory rate 22 /min Dr. Ramone Smiley MD Work Phone: 1(102)033-448986 [place] [address] 01-15-2025 18:58-0400 SaO2% (BldA) [Mass fraction] 98 % Dr. Ramone Smiley MD Work Phone: 1(955)719-538386 [place] [address] 01-15-2025 18:58-0400 Systolic blood pressure 130 mm[Hg] Dr. Ramone Smiley MD Work Phone: 9(550)198-568196 [place] [address] 01-15-2025 14:14-0400 Body height 160.[address] Ramone Smiley MD Work Phone: [facility] 01-15-2025 14:14-0400 Body mass index (BMI) [Ratio] 32.3 kg/m2 Dr. Ramone Smiley MD Work Phone: [facility] 01-15-2025 14:14-0400 Body weight 82.[address] Ramone Smiley MD Work Phone: 0(186)606-584630 [address] 01-07-2025 17:34-0400 Body temperature 97.6 [degF] Dr. Ramone Smiley MD Work Phone: 0(427)580-774130 [address] 01-07-2025 17:34-0400 Diastolic blood pressure 78 mm[Hg] Dr. Ramone Smiley MD Work Phone: 4(157)500-549430 [address] 01-07-2025 17:34-0400 Heart rate 82 /min Dr. Ramone Smiley MD Work Phone: 4(743)421-818430 [address] 01-07-2025 17:34-0400 Respiratory rate 19 /min Dr. Ramone Smiley MD Work Phone: 9(435)184-295330 [address] 01-07-2025 17:34-0400 SaO2% (BldA) [Mass fraction] 97 % Dr. Ramone Smiley MD Work Phone: 6(760)986-837730 [address] 01-07-2025 17:34-0400 Systolic blood pressure 147 mm[Hg] Dr. Ramone Smiley MD Work Phone: [facility] 01-07-2025 14:56-0400 Body height 160.[address] Ramone Smiley MD Work Phone: [facility] 01-07-2025 14:56-0400 Body mass index (BMI) [Ratio] 31.5 kg/m2 Dr. Ramone Smiley MD Work Phone: [facility] 01-07-2025 14:56-0400 Body weight 80.[address] Ramone Smiley MD Work Phone: [facility] 12-30-2023 14:14-0400 Body temperature 98.9 [degF] Dr. Ramone Smiley Work Phone: [facility] 12-30-2023 14:14-0400 Diastolic blood pressure 60 mm[Hg] Dr. Ramone Smiley Work Phone: [facility] 12-30-2023 14:14-0400 Heart rate 80 /min Dr. Ramone Smiley Work Phone: [facility] 12-30-2023 14:14-0400 Respiratory rate 18 /min Dr. Ramone Smiley Work Phone: [facility] 12-30-2023 14:14-0400 SaO2% (BldA) [Mass fraction] 95 % Dr. Ramone Smiley Work Phone: [facility] 12-30-2023 14:14-0400 Systolic blood pressure 131 mm[Hg] Dr. Ramone Smiley Work Phone: [facility] 12-29-2023 07:09-0400 Inhaled oxygen flow rate 2 L/min Dr. Ramone Smiley Work Phone: [facility] 12-28-2023 11:27-0400 Body height 160.[address] Ramone Smiley Work Phone: [facility] 12-28-2023 11:27-0400 Body mass index (BMI) [Ratio] 27.8 kg/m2 Dr. Ramone Smiley Work Phone: [facility] 12-28-2023 11:27-0400 Body weight 71.[address] Ramone Smiley Work Phone: [facility] 12-27-2023 23:42-0400 Body temperature 97.5 [degF] [facility] 12-27-2023 23:42-0400 Diastolic blood pressure 59 mm[Hg] [facility] 12-27-2023 23:42-0400 Heart rate 77 /min [facility] 12-27-2023 23:42-0400 Respiratory rate 20 /min [facility] 12-27-2023 23:42-0400 SaO2% (BldA) [Mass fraction] 97 % [facility] 12-27-2023 23:42-0400 Systolic blood pressure 159 mm[Hg] [facility] 12-27-2023 22:06-0400 Body height 160.02 cm [facility] 12-27-2023 22:06-0400 Body mass index (BMI) [Ratio] 29.5 kg/m2 [facility] 12-27-2023 22:06-0400 Body weight 75.6 kg [facility] 08-17-2023 13:26-0500 Body temperature 97.1 [degF] Dr. Ramone Smiley Work Phone: [facility] 08-17-2023 13:26-0500 Diastolic blood pressure 65 mm[Hg] Dr. Ramone Smiley Work Phone: [facility] 08-17-2023 13:26-0500 Heart rate 84 /min Dr. Ramone Smiley Work Phone: [facility] 08-17-2023 13:26-0500 Respiratory rate 18 /min Dr. Ramone Smiley Work Phone: [facility] 08-17-2023 13:26-0500 SaO2% (BldA) [Mass fraction] 98 % Dr. Ramone Simley Work Phone: [facility] 08-17-2023 13:26-0500 Systolic blood pressure 140 mm[Hg] Dr. Ramone Smiley Work Phone: [facility] 08-14-2023 13:28-0500 Body height 160.[address] Ramone Smiley Work Phone: [facility] 08-14-2023 13:28-0500 Body weight 60.[address] Ramone Smiley Work Phone: [facility] 08-13-2023 15:22-0500 Body mass index (BMI) [Ratio] 23.4 kg/m2 Dr. Ramone Smiley Work Phone: [facility] 08-13-2023 14:18-0500 Body temperature 98.6 [degF] Dr. Ramone Smiley Work Phone: [facility] 08-13-2023 14:18-0500 Diastolic blood pressure 59 mm[Hg] Dr. Ramone Smiley Work Phone: [facility] 08-13-2023 14:18-0500 Heart rate 107 /min Dr. Ramone Smiley Work Phone: [facility] 08-13-2023 14:18-0500 Respiratory rate 20 /min Dr. Ramone Smiley Work Phone: [facility] 08-13-2023 14:18-0500 SaO2% (BldA) [Mass fraction] 97 % Dr. Ramone Smiley Work Phone: [facility] 08-13-2023 14:18-0500 Systolic blood pressure 152 mm[Hg] Dr. Ramone Smiley Work Phone: 6(835)599-996496 [place] [address] 08-13-2023 10:03-0500 Body height 160.[address] Ramone Smiley Work Phone: [facility] 08-13-2023 10:03-0500 Body mass index (BMI) [Ratio] 24.5 kg/m2 Dr. Ramone Smiley Work Phone: 6(817)912-850296 [place] [address] 08-13-2023 10:03-0500 Body weight [address] Ramone Smiley Work Phone: [facility] 08-07-2023 20:23-0500 Body temperature 97.6 [degF] Dr. Ramone Smiley Work Phone: [facility] 08-07-2023 20:23-0500 Diastolic blood pressure 51 mm[Hg] Dr. Ramone Smiley Work Phone: [facility] 08-07-2023 20:23-0500 Heart rate 87 /min Dr. Ramone mSiley Work Phone: [facility] 08-07-2023 20:23-0500 Respiratory rate 18 /min Dr. Ramone Smiley Work Phone: 7(061)586-066996 [place] [address] 08-07-2023 20:23-0500 SaO2% (BldA) [Mass fraction] 98 % Dr. Ramone Smiley Work Phone: [facility] 08-07-2023 20:23-0500 Systolic blood pressure 115 mm[Hg] Dr. Ramone Smiley Work Phone: 8(552)352-100696 [place] [address] 07-19-2023 01:01-0500 Diastolic blood pressure 61 mm[Hg] Dr. Ramone Smiley Work Phone: 0(479)286-791396 [place] [address] 07-19-2023 01:01-0500 Heart rate 101 /min Dr. Ramone Smiley Work Phone: 0(742)018-800186 [place] [address] 07-19-2023 01:01-0500 Respiratory rate 20 /min Dr. Ramone Smiley Work Phone: 1(688)039-282730 [address] 07-19-2023 01:01-0500 Systolic blood pressure 145 mm[Hg] Dr. Ramone Smiley Work Phone: 4(372)892-687030 [address] 07-18-2023 23:28-0500 Body mass index (BMI) [Ratio] 25.7 kg/m2 Dr. Ramone Smiley Work Phone: 7(844)606-501130 [address] 07-18-2023 23:28-0500 Body weight 65.[address] Ramone Smiley Work Phone: 3(767)026-537496 [place] [address] 07-18-2023 22:47-0500 Body temperature 97.6 [degF] Dr. Ramone Smiley Work Phone: [facility] 07-18-2023 22:47-0500 SaO2% (BldA) [Mass fraction] 96 % Dr. Ramone Smiley Work Phone: 0(379)520-109296 [place] [address] 07-18-2023 22:44-0500 Body height 160.[address] Ramone Smiley Work Phone: 0(321)993-803396 [place] [address] 07-15-2023 13:24-0500 Body temperature 98.2 [degF] Dr. Ramone Smiley Work Phone: [facility] 07-15-2023 13:24-0500 Diastolic blood pressure 74 mm[Hg] Dr. Ramone Smiley Work Phone: [facility] 07-15-2023 13:24-0500 Heart rate 89 /min Dr. Ramone Smiley Work Phone: [facility] 07-15-2023 13:24-0500 SaO2% (BldA) [Mass fraction] 92 % Dr. Ramone Smiley Work Phone: [facility] 07-15-2023 13:24-0500 Systolic blood pressure 122 mm[Hg] Dr. Ramone Smiley Work Phone: [facility] 01-28-2023 16:36-0400 Diastolic blood pressure 63 mm[Hg] [facility] 01-28-2023 16:36-0400 Heart rate 75 /min [facility] 01-28-2023 16:36-0400 Systolic blood pressure 170 mm[Hg] [facility] 01-28-2023 14:54-0400 Body height 160.02 cm [facility] 01-28-2023 14:54-0400 Body mass index (BMI) [Ratio] 26.9 kg/m2 [facility] 01-28-2023 14:54-0400 Body temperature 97.8 [degF] [facility] 01-28-2023 14:54-0400 Body weight 69 kg [facility] 01-28-2023 14:54-0400 Respiratory rate 25 /min [facility] 01-28-2023 14:54-0400 SaO2% (BldA) [Mass fraction] 97 % [facility] 07-14-2022 18:11-0500 Diastolic blood pressure 64 mm[Hg] [facility] Work Phone: 07-14-2022 18:11-0500 Heart rate 73 /min [facility] Work Phone: 07-14-2022 18:11-0500 Respiratory rate 18 /min [facility] Work Phone: 07-14-2022 18:11-0500 SaO2% (BldA) [Mass fraction] 98 % [facility] Work Phone: 07-14-2022 18:11-0500 Systolic blood pressure 174 mm[Hg] [facility] Work Phone: 07-14-2022 11:59-0500 Body height 160.02 cm [facility] Work Phone: 07-14-2022 11:59-0500 Body mass index (BMI) [Ratio] 31.1 kg/m2 [facility] Work Phone: 07-14-2022 11:59-0500 Body temperature 97.2 [degF] [facility] Work Phone: 07-14-2022 11:59-0500 Body weight 79.83 kg [facility] Work Phone: 05-07-2022 13:26-0400 Body height 158.1 cm 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 VETERINARY TECHNICIAN INSTRUCTOR.WILDLIFE REMOVAL SPECIALIST Work Phone: [facility] 05-07-2022 13:26-0400 Body temperature 97.2 [degF] 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 VETERINARY TECHNICIAN INSTRUCTOR.WILDLIFE REMOVAL SPECIALIST Work Phone: [facility] 05-07-2022 13:26-0400 Body weight 73.71 kg [place] Iraheta VETERINARY TECHNICIAN INSTRUCTOR.WILDLIFE REMOVAL SPECIALIST Work Phone: [facility] 05-07-2022 13:26-0400 Diastolic blood pressure 68 mm[Hg] [place] Iraheta VETERINARY TECHNICIAN INSTRUCTOR.WILDLIFE REMOVAL SPECIALIST Work Phone: [facility] 05-07-2022 13:26-0400 Heart rate 66 /min [place] Iraheta VETERINARY TECHNICIAN INSTRUCTOR.WILDLIFE REMOVAL SPECIALIST Work Phone: [facility] 05-07-2022 13:26-0400 Systolic blood pressure 160 mm[Hg] [place] Iraheta VETERINARY TECHNICIAN INSTRUCTOR.WILDLIFE REMOVAL SPECIALIST Work Phone: [facility] 02-26-2022 09:43-0400 Body height 160.[address] Ramone Smiley Work Phone: [facility] Work Phone: 02-26-2022 09:43-0400 Body mass index (BMI) [Ratio] 28.1 kg/m2 Dr. Ramone Smiley Work Phone: [facility] Work Phone: 02-26-2022 09:43-0400 Body temperature 97.9 [degF] Dr. Ramone Smiley Work Phone: [facility] Work Phone: 02-26-2022 09:43-0400 Body weight 72.[address] Ramone Smiley Work Phone: [facility] Work Phone: 02-26-2022 09:43-0400 Diastolic blood pressure 80 mm[Hg] Dr. Ramone Smiley Work Phone: [facility] Work Phone: 02-26-2022 09:43-0400 Heart rate 70 /min Dr. Ramone Smiley Work Phone: [facility] Work Phone: 02-26-2022 09:43-0400 Respiratory rate 14 /min Dr. Ramone Smiley Work Phone: [facility] Work Phone: 02-26-2022 09:43-0400 SaO2% (BldA) [Mass fraction] 98 % Dr. Ramone Smiley Work Phone: [facility] Work Phone: 02-26-2022 09:43-0400 Systolic blood pressure 134 mm[Hg] Dr. Ramone Smiley Work Phone: [facility] Work Phone: 12-17-2021 13:23-0400 Diastolic blood pressure 60 mm[Hg] Dr. Ramone Smiley Work Phone: [facility] Work Phone: 12-17-2021 13:23-0400 Systolic blood pressure 154 mm[Hg] Dr. Ramone Smiley Work Phone: [facility] Work Phone: 12-10-2021 10:34-0400 Diastolic blood pressure 70 mm[Hg] Dr. Ramone Smiley Work Phone: [facility] Work Phone: 12-10-2021 10:34-0400 Systolic blood pressure 124 mm[Hg] Dr. Ramone Smiley Work Phone: [facility] Work Phone: 12-06-2021 15:22-0400 Body mass index (BMI) [Ratio] 30.2 kg/m2 Dr. Ramone Smiley Work Phone: [facility] Work Phone: 12-06-2021 15:22-0400 Body weight 77.[address] Ramone Smiley Work Phone: [facility] Work Phone: 12-06-2021 15:22-0400 Diastolic blood pressure 84 mm[Hg] Dr. Ramone Smiley Work Phone: [facility] Work Phone: 12-06-2021 15:22-0400 Systolic blood pressure 122 mm[Hg] Dr. Ramone Smiley Work Phone: [facility] Work Phone: 12-06-2021 15:22-0400 Body height 160.[address] Ramone Smiley Work Phone: [facility] Work Phone: 12-06-2021 15:22-0400 Body mass index (BMI) [Ratio] 30.2 kg/m2 Dr. Ramone Smiley Work Phone: [facility] Work Phone: 12-06-2021 15:22-0400 Body weight 77.[address] Ramone Smiley Work Phone: [facility] Work Phone: 12-06-2021 15:22-0400 Diastolic blood pressure 84 mm[Hg] Dr. Ramone Smiley Work Phone: [facility] Work Phone: 12-06-2021 15:22-0400 Systolic blood pressure 122 mm[Hg] Dr. Ramone Smiley Work Phone: [facility] Work Phone: 12-04-2021 11:22-0400 Diastolic blood pressure 70 mm[Hg] Dr. Ramone Smiley Work Phone: [facility] Work Phone: 12-04-2021 11:22-0400 Systolic blood pressure 124 mm[Hg] Dr. Ramone Smiley Work Phone: [facility] Work Phone: 12-04-2021 11:22-0400 Diastolic blood pressure 70 mm[Hg] Dr. Ramone Smiley Work Phone: [facility] Work Phone: 12-04-2021 11:22-0400 Systolic blood pressure 124 mm[Hg] Dr. Ramone Smiley Work Phone: [facility] Work Phone: 12-02-2021 14:03-0400 Diastolic blood pressure 60 mm[Hg] Dr. Ramone Smiley Work Phone: [facility] Work Phone: 12-02-2021 14:03-0400 Systolic blood pressure 138 mm[Hg] Dr. Ramone Smiley Work Phone: [facility] Work Phone: 12-02-2021 14:03-0400 Diastolic blood pressure 60 mm[Hg] Dr. Ramone Smiley Work Phone: [facility] Work Phone: 12-02-2021 14:03-0400 Systolic blood pressure 138 mm[Hg] Dr. Ramone Smiley Work Phone: [facility] Work Phone: 01-13-2017 14:21-0400 BMI (Body [...] Pulse (Heart Rate) 70 /min Zuleika Heaton [facility] Work Phone: 01-13-2017 14:21-0400 [...] Care Provider Facility Start: 03-25-2025 Dr. Melba Hartmann MD - [facility] Work Phone: Start: 03-24-2025 Dr. Melba Hartmann MD - [facility] Work Phone: Start: 03-23-2025 Dr. Melba Hartmann MD - [facility] Work Phone: Start: 03-22-2025 Dr. Melba Hartmann MD - [facility] Work Phone: Start: 03-21-2025 ambulatory Abigail Foster Facility :[facility] [place] Start: 03-21-2025 End: 03-25-2025 Evaluation and management of inpatient Dr. Ramone Smiley MD Work Phone: -[facility] Surgical 3 Start: 03-21-2025 End: 03-25-2025 Dr. Abigail Foster MD -[facility] Work Phone: Start: 03-09-2025 Whitney Cao GMAT TUTOR-C -[facility] Work Phone: Start: 03-09-2025 ambulatory Whitney Cao GMAT TUTOR Facili ty:[facility] Start: 03-07-2025 ambulatory Whitney Cao GMAT TUTOR Facili ty:[facility] Start: 03-07-2025 Dr. Se Good MD -[facility] Start: 03-07-2025 End: 03-07-[address] Ramone Smiley MD Work Phone: -Cardiovascular Services Start: 03-07-2025 End: 03-07-2025 Whitney Cao GMAT TUTOR-C -[facility] Services Work Phone: Start: 03-07-2025 End: 03-07-2025 ambulatory Whitney Cao NP Facility:[facility] Start: 03-04-2025 End: 03-04-2025 Dr. Ramone Smiley MD Work Phone: -Emergency Department Work Phone: Start: 03-04-2025 End: 03-04-2025 Emergency department patient visit Dr. Ramone Smiley MD Work Phone: -Emergency Department Start: 02-28-2025 Dr. Asha Anguiano MD -[facility] Work Phone: Start: 02-18-2025 End: 02-19-2025 Dr. Ramone Smiley MD Work Phone: -Emergency Department Work Phone: Start: 02-18-2025 End: 02-19-2025 Emergency department patient visit Dr. Ramone Smiley MD Work Phone: [facility] Work Phone: Start: 02-17-2025 Dr. Heydi Amaya MD -[facility] Work Phone: Start: 02-16-2025 Dr. Heydi Amaya MD -[facility] Work Phone: Start: 02-15-2025 End: 02-17-2025 ambulatory Nestor Bartlett Facility:[facility] Start: 02-15-2025 End: 02-17-[address] Ramone Smiley MD Work Phone: [facility] Work Phone: Start: 02-15-2025 End: 02-17-2025 Dr. Nestor Bartlett DO -[facility] Work Phone: Start: 02-13-2025 Dr. Lucio Borden [facility] Work Phone: Start: 02-12-2025 Dr. Lucio Borden [facility] Work Phone: Start: 02-11-2025 Dr. Lucio Borden [facility] Work Phone: Start: 02-10-2025 Dr. Lucio Borden [facility] Work Phone: Start: 02-09-2025 ambulatory Lucio Borden Facilit y:[facility] Start: 02-09-2025 End: 02-13-2025 Evaluation and management of inpatient Dr. Ramone Smiley MD Work Phone: [facility] Work Phone: Start: 02-09-2025 End: 02-13-[address] [facility] Work Phone: Start: 02-07-2025 End: 02-07-[address] Ramone Smiley MD Work Phone: [facility] Work Phone: Start: 02-07-2025 End: 02-07-2025 Dr. Ramone Smiley MD -Laboratory [facility] Start: 02-07-2025 End: 02-07-2025 ambulatory Ramone Smiley Facility:[facility] Start: 02-06-2025 Dr. Lucio Borden DO [facility] Work Phone: Start: 02-05-2025 Dr. Lucio Borden [facility] Work Phone: Start: 02-04-2025 Dr. Lucio Borden [facility] Work Phone: Start: 02-04-2025 ambulatory Ramone Smiley Facility:[facility] Start: 02-04-2025 End: 02-06-2025 Evaluation and management of inpatient Dr. Ramone Smiley MD Work Phone: [facility] Work Phone: Start: 02-04-2025 End: 02-06-2025 Dr. Lucio Borden DO -[facility] Work Phone: Start: 01-31-2025 End: 01-31-2025 Whitney SUGGS -[facility] Work Phone: Start: 01-31-2025 End: 01-31-[address] Ramone Smilye MD Work Phone: [facility] Work Phone: Start: 01-26-2025 End: 01-26-2025 Dr. Ramone Smiley MD Work Phone: -Emergency Department Work Phone: Start: 01-26-2025 End: 01-26-2025 Emergency department patient visit Dr. Ramone Smiley MD Work Phone: [facility] Work Phone: Start: 01-24-2025 Dr. Melba Hartmann MD - [facility] Work Phone: Start: 01-23-2025 Dr. Becca Silverman MD -[facility] Start: 01-23-2025 Dr. Melba Hartmann MD - [facility] Work Phone: Start: 01-22-2025 Dr. Melba Hartmann MD - [facility] Work Phone: Start: 01-21-2025 Dr. Melba Hartmann MD - [facility] Work Phone: Start: 01-20-2025 ambulatory Ramone Smiley Facility:[facility] Start: 01-20-2025 Dr. Marcelina Soto MD -[facility] Start: 01-20-2025 ambulatory Sandeep Carlton Facili ty:[facility] Start: 01-20-2025 End: 01-24-2025 Evaluation and management of inpatient Dr. Ramone Smiley MD Work Phone: [facility] Work Phone: Start: 01-20-2025 End: 01-24-2025 Dr. Melba Hartmann MD -Progressive Care Unit Work Phone: Start: 01-19-2025 End: 01-19-[address] Ramone Smiley MD Work Phone: [facility] Work Phone: Start: 01-19-2025 End: 01-19-2025 Dr. Ramone Smiley MD -Laboratory [facility] Start: 01-19-2025 End: 01-19-2025 ambulatory Ramone Smiley Facility:[facility] Start: 01-15-2025 End: 01-15-2025 Dr. Jeevan [...] Department Work Phone: Start: 11-21-2024 ambulatory Ramone Simley Facility:[facility] Start: 11-21-[address] Ramone Smiley MD -Physical Therapy Work Phone: Start: 11-21-2024 Dr. Ramone Smiley MD -Phys ical Therapy Work Phone: Start: 09-27-2024 End: 09-27-[address] Ramone Smiley MD -Laboratory, [facility] Start: 09-27-2024 End: 09-27-2024 Dr. Ramone Smiley MD -Laboratory [facility] Start: 09-27-2024 End: 09-27-2024 ambulatory Ramone Smiley Facility:[facility] Start: 07-19-2024 End: 07-19-2024 ambulatory Asha Anguiano Facility:[facility] Start: 06-19-2024 End: 06-20-2024 Emergency department patient visit Billy Kothari Facility:[facility] Start: 05-30-2024 End: 05-30-2024 Emergency department patient visit Kwaku Marcial Facility:[facility] Start: 05-18-2024 End: 05-18-2024 ambulatory Jason BHATTI Facility:[facility] Start: 04-18-2024 End: 04-18-2024 ambulatory Ramone Smiley Facility:[facility] Start: 12-30-2023 Non-patient / Non-visit Dr. Richar Smiley Work Phone: [facility] Work Phone: Start: 12-29-2023 Non-patient / Non-visit Dr. Richar Smiley Work Phone: [facility] Work Phone: Start: 12-28-2023 Non-patient / Non-visit Dr. Richar Smiley Work Phone: [facility] Work Phone: Start: 12-27-2023 End: 12-30-2023 Evaluation and management of inpatient [facility]-Medical Surgical 3 Work Phone: Start: 10-26-2023 End: 10-26-[address] Ramone Smiley Work Phone: [facility] Work Phone: Start: 10-26-2023 End: 10-26-[address] Ramone Smiley Work Phone: [facility] Start: 08-17-2023 Non-patient / Non-visit Dr. Richar Smiley Work Phone: [facility] Work Phone: Start: 08-16-2023 Non-patient / Non-visit Dr. Richar Smiley Work Phone: [facility] Work Phone: Start: 08-15-2023 Non-patient / Non-visit Dr. Richar Smiley Work Phone: [facility] Work Phone: Start: 08-14-2023 Non-patient / Non-visit Dr. Richar Smiley Work Phone: [facility] Work Phone: Start: 08-13-2023 End: 08-17-2023 Evaluation and management of inpatient Dr. Ramone Smiley Work Phone: [facility]-Progressive Care Unit Work Phone: Start: 08-07-2023 End: 08-07-2023 Emergency department patient visit Dr. Ramone Smiley Work Phone: [facility]-Emergency Department Work Phone: Start: 07-18-2023 End: 07-19-2023 Emergency department patient visit Dr. Ramone Smiley Work Phone: [facility]-Emergency Department Work Phone: Start: 07-15-2023 End: 07-15-[address] Ramone Smiley Work Phone: [facility] Work Phone: Start: 06-01-2023 End: 06-01-[address] [facility] Work [facility]: Start: 05-27-2023 End: 05-27-[address] Ramone Smiley Work Phone: [facility] Work Phone: Start: 05-15-2023 End: 05-15-[address] [facility] [place] Work Phone: Start: 03-24-2023 End: 03-24-2023 ambulatory [facility] Work Phone: Start: 03-24-2023 End: 03-24-2023 Patient encounter procedure [facility] Work Phone: Start: 02-05-2023 End: 02-05-2023 ambulatory [facility] Work Phone: Start: 02-05-2023 End: 02-05-2023 Patient encounter procedure [facility]-Ultrasound, [facility] Start: 01-28-2023 End: 01-28-2023 Emergency department patient visit [facility]-Emergency Department Start: 01-28-2023 End: 01-28-2023 ambulatory [facility] Work Phone: Start: 01-28-2023 End: 01-28-2023 [facility] Start: 12-09-2022 End: 12-09-2022 ambulatory [facility] Work Phone: Start: 12-09-2022 End: 12-09-2022 Patient encounter procedure [facility] Start: 08-13-2022 End: 08-13-2022 ambulatory [facility] Work Phone: Start: 08-13-2022 End: 08-13-2022 Patient encounter procedure [facility]-Outpatient Breast Imaging Start: 07-14-2022 End: 07-14-2022 Emergency department patient visit [facility]-Emergency Department Start: 05-07-2022 End: 05-07-2022 ambulatory 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 APRN.[employer]IFE REMOV[employer] SPECIALIST Work Phone: Hematology/Oncology Comment on above: Iron deficiency anem ia due to chronic blood loss (Primary Dx) Start: 05-07-2022 End: 05-07-2022 Patient encounter procedure 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 APRN.WILDLIFE REMOVAL SPECIALIST Work Phone: [facility] Start: 02-27-2022 End: 02-27-[address] Ramone Smiley Work Phone: [facility] Start: 02-26-2022 End: 02-26-[address] Ramone Smiley Work Phone: [facility] Start: 02-10-2022 Telephone encounter Joseph sanders DO Work Phone: Hematology/Oncology Comment on above: Results (CBC and iro n levels) Start: 01-31-2022 Orders Only Joseph Lim Work Phone: Hematology/Oncology Comment on above: Iron deficiency anem ia due to chronic blood loss (Primary Dx) Start: 12-17-2021 End: 12-17-[address] Ramone Smiley Work Phone: [facility] Start: 12-10-2021 End: 12-10-[address] Ramone Smiley Work Phone: [facility] Start: 12-06-2021 End: 12-06-[address] Ramone Smiley Work Phone: [facility] Start: 12-04-2021 End: 12-04-[address] Ramone Smiley Work Phone: [facility] Start: 12-02-2021 End: 12-02-[address] Ramone Smiley Work Phone: [facility]-Laboratory, Specimen Start: 12-02-2021 End: 12-02-[address] Ramone Smiley Work Phone: [facility] Start: 09-29-2021 Telephone encounter Joseph sanders DO Work Phone: Hematology/Oncology Comment on above: Results; Follow Up Start: 09-13-2021 End: 09-13-[address] Ramone Smiley Work Phone: [facility]-Nuclear Medicine, [facility] Start: 08-21-[address] Ramone Smiley Work Phone: [facility]-Outpatient Breast Imaging Start: 08-12-2021 End: 08-12-[address] Ramone Smiley Work Phone: [facility] Start: 03-14-2021 Telephone encounter Joseph sanders DO Work Phone: Hematology/Oncology Comment on above: Results Start: 01-18-2018 [facility] Procedures Date Procedure Procedure Detail [...] PA a nd lateral views Dr. Ramone Smliey MD Work Phone: Start: 02-04-2025 Blood count [...] Nucleated red blood cell count procedure Dr. Ramnoe Smiley MD Work Phone: Start: 01-24-2025 Platelet [...] pelvi s and lower extremity Dr. Ramone mSiley Work Phone: Start: 12-28-2023 Prosthetic uncemente d [...] BRODIE Good MD Start: 08-29-2015 End: 08-29-2015 [employer] Se Good MD Start: 08-29-2015 End: 08-29-2015 [...] Activity Detail Author Start: 03-25-2025 Patient discharge [facility] Start: 03-24-2025 Referral to service [facility] Start: 03-24-2025 [facility] Start: 03-23-2025 [facility] Start: 03-23-2025 [facility] Start: 03-23-2025 [facility] Start: 03-22-2025 Aspiration precautions [facility] Start: 03-22-2025 Speech therapy assessment [facility] Start: 03-22-2025 Following clinical pathway protocol [facility] Start: 03-22-2025 Assessment of risk o f venous thromboembolism [facility] Start: 03-22-2025 Care regimes management [facility] Start: 03-22-2025 Fall prevention [facility] Start: 03-22-2025 Inhalation therapy procedure [facility] Start: 03-22-2025 Insertion of cathete r into peripheral vein [facility] Start: 03-22-2025 Introduction of urin david catheter [facility] Start: 03-22-2025 Measuring intake and output [facility] Start: 03-22-2025 Notification of physician [facility] Start: 03-22-2025 Oxygen therapy [facility] Start: 03-22-2025 Providing care accor ding to standard [facility] Start: 03-22-2025 Provision of activit y privileges [facility] Start: 03-22-2025 Referral to occupati onal therapist [facility] Start: 03-22-2025 Referral to service [facility] Start: 03-22-2025 End: 03-22-2025 [facility] Start: 03-22-2025 Patient referral to dietitian [facility] Start: 03-21-2025 Verification routine [facility] Start: 03-21-2025 Admission procedure [facility] Start: 03-21-2025 Hospital admission, emergency, from emergency room, medical nature [facility] Start: 03-21-2025 End: 03-22-2025 [facility] Start: 03-07-2025 Cardiovascular stres s test using pharmacologic stress agent [facility] Start: 03-07-2025 NM Heart Views W str ess and W radionuclide IV [facility] Start: 03-04-2025 [facility] Start: 03-04-2025 End: 03-04-2025 [facility] Start: 03-04-2025 Blood culture [facility] Start: 02-19-2025 [facility] Start: 02-18-2025 [facility] Start: 02-17-2025 Patient discharge [facility] Start: 02-17-2025 [facility] Start: 02-16-2025 End: 02-16-2025 [facility] Start: 02-15-2025 [facility] Start: 02-15-2025 Following clinical pathway protocol [facility] Start: 02-15-2025 Ambulation without limitation [facility] Start: 02-15-2025 Assessment of risk o f venous thromboembolism [facility] Start: 02-15-2025 Care regimes management [facility] Start: 02-15-2025 Insertion of cathete r into peripheral vein [facility] Start: 02-15-2025 Notification of physician [facility] Start: 02-15-2025 Oxygen therapy [facility] Start: 02-15-2025 Providing care accor ding to standard [facility] Start: 02-15-2025 Referral to occupati onal therapist [facility] Start: 02-15-2025 Referral to service [facility] Start: 02-15-2025 [facility] Start: 02-15-2025 Verification routine [facility] Start: 02-15-2025 Admission procedure [facility] Start: 02-15-2025 Hospital admission, emergency, from emergency room, medical nature [facility] Start: 02-15-2025 [facility] Start: 02-15-2025 End: 02-15-2025 [facility] Start: 02-15-2025 Inhalation therapy procedure [facility] Start: 02-13-2025 Patient discharge [facility] Start: 02-11-2025 Inhalation therapy procedure [facility] Start: 02-10-2025 [facility] Start: 02-10-2025 Referral to service [facility] Start: 02-09-2025 Care regimes management [facility] Start: 02-09-2025 Notification of physician [facility] Start: 02-09-2025 [facility] Start: 02-09-2025 Following clinical pathway protocol [facility] Start: 02-09-2025 Ambulation without limitation [facility] Start: 02-09-2025 Assessment of risk o f venous thromboembolism [facility] Start: 02-09-2025 Catheterization of vein [facility] Start: 02-09-2025 Insertion of cathete r into peripheral vein [facility] Start: 02-09-2025 Oxygen therapy [facility] Start: 02-09-2025 Providing care accor ding to standard [facility] Start: 02-09-2025 Referral to occupati onal therapist [facility] Start: 02-09-2025 Referral to service [facility] Start: 02-09-2025 [facility] Start: 02-09-2025 Verification routine [facility] Start: 02-09-2025 Admission procedure [facility] Start: 02-09-2025 Hospital admission, emergency, from emergency room, medical nature [facility] Start: 02-09-2025 [facility] Start: 02-09-2025 Patient referral to dietitian [facility] Start: 02-06-2025 Patient discharge [facility] Start: 02-06-2025 Referral to service [facility] Start: 02-05-2025 [facility] Start: 02-04-2025 End: 02-04-2025 [facility] Start: 02-04-2025 Care regimes management [facility] Start: 02-04-2025 Notification of physician [facility] Start: 02-04-2025 Following clinical pathway protocol [facility] Start: 02-04-2025 Care planning and pr oblem solving actions [facility] Start: 02-04-2025 Ambulation without limitation [facility] Start: 02-04-2025 Assessment of risk o f venous thromboembolism [facility] Start: 02-04-2025 Catheterization of vein [facility] Start: 02-04-2025 Inhalation therapy procedure [facility] Start: 02-04-2025 Insertion of cathete r into peripheral vein [facility] Start: 02-04-2025 Oxygen therapy [facility] Start: 02-04-2025 Providing care accor ding to standard [facility] Start: 02-04-2025 [facility] Start: 02-04-2025 Hospital admission, emergency, from emergency room, medical nature [facility] Start: 02-04-2025 Verification routine [facility] Start: 02-04-2025 Admission procedure [facility] Start: 02-04-2025 [facility] Start: 02-04-2025 [facility] Start: 01-26-2025 [facility] Start: 01-24-2025 Referral to service [facility] Start: 01-24-2025 Patient discharge [facility] Start: 01-21-2025 [facility] Start: 01-21-2025 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 [facility] Start: 01-20-2025 Oxygen therapy [facility] Start: 01-20-2025 Blood culture [facility] Start: 01-20-2025 Notification of physician [facility] Start: 01-20-2025 [facility] Start: 01-20-2025 End: 01-20-2025 [facility] Start: 01-20-2025 Application of intermittent pneumatic compression device [facility] Start: 01-20-2025 Following clinical pathway protocol [facility] Start: 01-20-2025 Cardiac monitoring [facility] Start: 01-20-2025 Catheterization of vein [facility] Start: 01-20-2025 Notification of physician [facility] Start: 01-20-2025 Vital signs measurements [facility] Start: 01-20-2025 Admission procedure [facility] Start: 01-20-2025 End: 01-20-2025 [facility] Start: 01-20-2025 Care regimes management [facility] Start: 01-20-2025 Inhalation therapy procedure [facility] Start: 01-20-2025 Patient referral to dietitian [facility] Start: 01-15-2025 [facility] Start: 01-15-2025 [facility] Start: 01-07-2025 [facility] Start: 12-30-2023 Patient discharge [facility] Start: 12-30-2023 Inhalation therapy procedure [facility] Start: 12-28-2023 Application of intermittent pneumatic compression device [facility] Start: 12-28-2023 Provision of overbed trapeze [facility] Start: 12-28-2023 Recommendation to continue with treatment [facility] Start: 12-28-2023 Ambulation therapy management [facility] Start: 12-28-[address] [facility] Start: 12-28-2023 Assessment of risk o f venous thromboembolism [facility] Start: 12-28-2023 Catheterization of vein [facility] Start: 12-28-2023 Exercises [facility] Start: 12-28-2023 Following clinical pathway protocol [facility] Start: 12-28-2023 Introduction of urin david catheter [facility] Start: 12-28-2023 Measuring intake and output [facility] Start: 12-28-2023 Neurovascular assessment [facility] Start: 12-28-2023 Patient education [facility] Start: 12-28-2023 Procedure discontinued [facility] Start: 12-28-2023 Provision of activit y privileges [facility] Start: 12-28-2023 Referral to occupati onal therapist [facility] Start: 12-28-2023 Referral to service [facility] Start: 12-28-2023 Vital signs measurements [facility] Start: 12-28-2023 Wound care [facility] Start: 12-28-2023 [facility] Start: 12-28-2023 Blood chemistry [facility] Start: 12-28-2023 Complete blood count [facility] Start: 12-28-2023 Following clinical pathway protocol [facility] Start: 12-28-2023 Assessment of risk o f venous thromboembolism [facility] Start: 12-28-2023 Care regimes management [facility] Start: 12-28-2023 Consultation [facility] Start: 12-28-2023 Incentive spirometry [facility] Start: 12-28-2023 Insertion of cathete r into peripheral vein [facility] Start: 12-28-2023 Notification of physician [facility] Start: 12-28-2023 Oxygen therapy [facility] Start: 12-28-2023 Providing care accor ding to standard [facility] Start: 12-28-2023 Provision of activit y privileges [facility] Start: 12-28-2023 Referral to occupati onal therapist [facility] Start: 12-28-2023 Referral to service [facility] Start: 12-28-2023 [facility] Start: 12-27-2023 Verification routine [facility] Start: 12-27-2023 Admission procedure [facility] Start: 08-17-2023 Referral to service [facility] Start: 08-17-2023 Patient discharge [facility] Start: 08-16-2023 [facility] Start: 08-13-2023 Following clinical pathway protocol [facility] Start: 08-13-2023 Assessment of risk o f venous thromboembolism [facility] Start: 08-13-2023 Care regimes management [facility] Start: 08-13-2023 Insertion of cathete r into peripheral vein [facility] Start: 08-13-2023 Measuring intake and output [facility] Start: 12-14-2023 Notification of physician [facility] Start: 08-13-2023 Providing care accor ding to standard [facility] Start: 08-13-2023 Provision of activit y privileges [facility] Start: 08-13-2023 Referral to occupati onal therapist [facility] Start: 08-13-2023 Referral to service [facility] Start: 08-13-2023 [facility] Start: 08-13-2023 Admission procedure [facility] Start: 08-13-2023 Verification routine [facility] Start: 08-13-2023 Bacteria identified in Blood by Culture Blood Culture [facility] Start: 08-13-2023 Bacteria identified in Urine by Culture Urine Culture [facility] Start: 08-13-2023 Hospital admission, emergency, from emergency room, medical nature [facility] Start: 08-13-2023 [facility] Start: 08-13-2023 End: 08-13-2023 Blood culture [facility] Start: 08-13-2023 Inhalation therapy procedure [facility] Start: 08-13-2023 Patient referral to dietitian [facility] Start: 08-07-2023 [facility] Start: 07-19-2023 End: 07-19-2023 [facility] Start: 07-18-2023 Measurement of occul t blood in stool specimen using immunoassay [facility] Start: 07-18-2023 Bacteria identified in Urine by Culture Urine Culture [facility] Start: 05-07-2022 BP CONTROLLED (<130/80) BP CONTROLLE D (<130/80) [facility] Start: 05-01-[address] [facility] Start: 03-28-2022 COVID-19 VACCINE (4 - Booster for Moderna series) COVID-19 VACCINE (4 - Booster for Moderna series) [facility] Start: 09-29-2021 End: 09-29-2022 MONOCLONAL PROTEIN, SERUM (BLOOD) MONOCLONAL PROTEIN, SERUM (BLOOD) Lab Routine Anemia, unspecified type Expected: 09/29/2021, Expires: 09/29/2022 [facility] Work Phone: Comment on above: Expected: 09/29/2021 , Expires: 09/29/2022 Start: 09-29-2021 End: 09-29-2022 PROTEIN ELECTROPHORESIS SERUM W/INTERP PROTEIN ELECTROPHORESIS SERUM W/INTERP Lab Routine Anemia, unspecified type Expected: 09/29/2021, Expires: 09/29/2022 [facility] Work Phone: Comment on above: Expected: 09/29/2021 , Expires: 09/29/2022 Start: 08-31-2021 ADVANCE DIRECTIVE DISCUSSION ADVANCE DIRECTIVE DISCUSSION [facility] Start: 05-16-2021 COVID-19 VACCINE (3 - Booster for Moderna series) COVID-19 VACCINE (3 - Booster for Moderna series) [facility] Start: 05-04-2018 Urine microalbumin profile DTAP,TDAP,TD (2 - Td or Tdap) [facility] Start: 08-16-2016 3 comp foot exam completed DIABETIC FOOT EXAM [facility] Start: 10-09-2015 End: 04-02-2016 Follow Up Appt 6 months Follow Up Appt 6 months [facility] Work Phone: Start: 10-09-2015 End: 04-02-2016 MMM MMM [facility] Work Phone: Start: 08-29-2015 End: 08-29-2015 [employer] [facility] Work Phone: Start: 08-29-2015 End: 08-29-2015 Electrocardiogram, complete EKG (In office) [facility] Work Phone: Start: 08-29-2015 End: 08-29-2015 Follow Up Appt 6 weeks Follow Up Appt 6 weeks [facility] Work Phone: Start: 07-01-2014 Hemoglobin A1c/Hemoglobin.total in Blood HBA1C [facility] Start: 06-25-2014 Hepatitis B surface antibody level LDL CHOLESTEROL [facility] Start: 06-17-2014 Hepatitis C antibody , confirmatory test DILATED RETINAL EXAM [facility] Start: 02-12-2013 PNEUMOCOCCAL: 65+ (2 - PCV) PNEUMOCOCCAL: 65+ (2 - PCV) [facility] Start: 02-12-2013 PNEUMOCOCCAL: 65+ (3 - PCV) PNEUMOCOCCAL: 65+ (3 - PCV) [facility] Start: 02-18-2012 SHINGRIX VACCINE (1 of 2) JIMENEZ GRIX VACCINE (1 of 2) [facility] Start: 02-18-2012 SHINGRIX VACCINE (2 of 3) JIMENEZ GRIX VACCINE (2 of 3) [facility] Start: 01-02-1962 ANNUAL PCP TEAM JOINTER OPERATOR ERIS DISEASE VISIT ANNUAL PCP TEAM CHRONIC DISEASE VISIT [facility] Start: 01-02-1962 BP CONTROLLED (<130/80) BP CONTROLLE D (<130/80) [facility] Start: 01-02-1962 HEPATITIS C SCREENING HEPATITIS C SC REENING [facility] Start: 1957 Adult depression screening assessment DEPRESSION SCREENING [facility] Anion gap measurement [facility] Bacteria identified in Sputum by Respiratory culture [facility] BUN/Creatinine ratio [facility] Calcium [Mass/volume ] in Serum or Plasma [facility] Carbon dioxide, tota l [Moles/volume] in Serum or Plasma [facility] End: 01-31-2023 CBC W Auto Differential panel - Blood CBC + DIFF Lab STAT Iron deficiency anemia due to chronic blood loss Every 3 months for 4 Occurrences starting 01/31/2022 until 01/31/2023 [facility] Work Phone: Comment on above: Every 3 months for 4 Occurrences starting 01/31/2022 until 01/31/2023 End: 09-29-2022 CBC W Auto Differential panel - Blood CBC + DIFF Lab Routine Anemia, unspecified type 1 Occurrences starting 09/29/2021 until 09/29/2022 [facility] Work Phone: Comment on above: 1 Occurrences starti ng 09/29/2021 until 09/29/2022 Chloride [Moles/volu me] in Serum or Plasma [facility] End: 09-29-2022 Comprehensive metabolic 2000 panel - Serum or Plasma COMP METABOLIC PANEL Lab Routine Anemia, unspecified type 1 Occurrences starting 09/29/2021 until 09/29/2022 [facility] Work Phone: Comment on above: 1 Occurrences starti ng 09/29/2021 until 09/29/2022 Creatinine [Moles/vo lume] in Serum or Plasma [facility] Erythrocyte mean corpuscular volume determination [facility] End: 01-31-2023 FERRITIN BLD FERRITIN BLD Lab Routine Iron deficiency anemia due to chronic blood loss Every 3 months for 4 Occurrences starting 01/31/2022 until 01/31/2023 [facility] Work Phone: Comment on above: Every 3 months for 4 Occurrences starting 01/31/2022 until 01/31/2023 Glucose [Mass/volume ] in Serum or Plasma [facility] Hematocrit [Volume Fraction] of Blood [facility] Hemoglobin [Mass/vol ume] in Blood [facility] Hemoglobin A1c/Hemoglobin.total in Blood [facility] End: 01-31-2023 IRON + TIBC IRON + TIBC Lab Routine Iron deficiency anemia due to chronic blood loss Every 3 months for 4 Occurrences starting 01/31/2022 until 01/31/2023 [facility] Work Phone: Comment on above: Every 3 months for 4 Occurrences starting 01/31/2022 until 01/31/2023 Leukocytes [#/volume ] in Blood [facility] Mean corpuscular hemoglobin concentration determination [facility] Mean corpuscular hemoglobin determination [facility] Measurement of renal function [facility] Microorganism identi fied in Unspecified specimen by Culture [facility] Microscopic observat ion [Identifier] in Unspecified specimen by Gram stain [facility] NM Heart Views W str ess and W radionuclide IV [facility] Patient Education [facility] Work Phone: Patient referral [facility] Work Phone: Platelets [#/volume] in Blood [facility] Potassium [Moles/vol ume] in Serum or Plasma [facility] Procalcitonin [Mass/volume] in Serum or Plasma by Immunoassay [facility] Red blood cell count [facility] Red cell distributio n width determination [facility] Sodium [Moles/volume ] in Serum or Plasma [facility] Troponin T.cardiac [Mass/volume] in Serum or Plasma by High sensitivity method [facility] Troponin T.cardiac [Mass/volume] in Serum or Plasma by High sensitivity method [facility] Urea nitrogen [Mass/volume] in Serum or Plasma [facility] Urine culture [facility] Urine culture [facility] Immunizations Immunization Date Immunization Notes Care Provider Larissa cuadra 07-03-2022 influenza, injectabl e, quadrivalent, preservative free Dr. Ramone Smiley MD Work Phone: [facility] 11-26-2021 Covid (Moderna) Dr. Ramone leon MD Work Phone: [facility] 08-22-2015 pneumococcal conjuga te vaccine, [address] Ramone Smiley MD Work Phone: [facility] 07-12-2012 influenza virus vacc ine, unspecified formulation Joseph Rolle DO Work Phone: [facility] 02-13-2012 pneumococcal polysaccharide vaccine, 23 valent Joseph Rolle DO Work Phone: [facility] 12-24-2011 zoster vaccine, live Joseph Chen chatterjee DO Work Phone: [facility] 06-02-2011 influenza virus vacc ine, unspecified formulation Joseph Rolle DO Work Phone: [facility] 08-09-2010 influenza virus vacc ine, unspecified formulation Joseph Aquilino DO Work Phone: [facility] 05-30-2009 influenza virus vacc ine, unspecified formulation Joseph Viktoriai DO Work Phone: [facility] 09-07-2008 influenza virus vacc ine, unspecified formulation Joseph Rolle DO Work Phone: [facility] Work Phone: 05-04-2008 tetanus toxoid, redu octavio diphtheria toxoid, and acellular pertussis vaccine, adsorbed Joseph Rolle DO Work Phone: [facility] Work Phone: 06-28-2007 influenza virus vacc ine, unspecified formulation Joseph Blumi DO Work Phone: [facility] Work Phone: 08-31-2005 pneumococcal polysaccharide vaccine, 23 valent Joseph Rolle DO Work Phone: [facility] Work Phone: Payers Date Payer Category Payer Self-pay [id number] 2017 Medicare HUMANA MEDICARE HUMANA MEDICARE PPO [id number] 2017-Present [phone] [address] [place] [address] PPO [id number] 2017 Medicare HUMANA MEDICARE HU[employer]NA MEDICARE PPO [id number] 2017-Present [phone] [place] [address] PPO [id number] 2016 Medicare [id number] Private Health Insurance Unknown [id number] 2.16.840.1.687432.3.579. 2.462 Unknown [id number] 2.16840.1.982336.3.579. 2.462 Unknown [id number] 2.16840.1.501732.3.579. 2.462 Unknown [id number] 2.16.840.1.883532.3.579. 2.462 Unknown [id number] 2.16840.1.865533.3.579. 2.462 Unknown [id number] 2.16.840.1.847482.3.579. 2.462 Unknown [id number] 2.16.840.1.178250.3.579. 2.462 Unknown [id number] 2.16.840.1.554914.3.579. 2.462 Unknown [id number] 2.16.840.1.758577.3.579. 2.462 Unknown [id number] 2.16840.1.137683.3.579. 2.462 Unknown [id number] 2.840.1.739968.3.579. 2.462 Unknown [id number] 2.840.1.454497.3.579. 2.462 Unknown [id number] 2.840.1.089625.3.579. 2.462 Unknown [id number] 2.840.1.962785.3.579. 2.462 Unknown [id number] 2.840.1.052400.3.579. 2.462 Unknown [id number] 2.840.1.454521.3.579. 2.462 Unknown [id number] 2.840.1.821819.3.579. 2.462 Unknown [id number] 2.840.1.551635.3.579. 2.462 Unknown [id number] 2.840.1.014606.3.579. 2.462 Unknown [id number] 2.840.1.633824.3.579. 2.462 Unknown [id number] 2.840.1.397209.3.579. 2.462 Unknown [id number] .840.1.381153.3.579. 2.462 Unknown [id number] .840.1.557175.3.579. 2.462 Unknown [id number] .840.1.596747.3.579. 2.462 Unknown [id number] .840.1.280143.3.579. 2.462 Unknown [id number] 2.840.1.081069.3.579. 2.462 Unknown [id number] 2.840.1.163749.3.579. 2.462 Unknown [id number] 2.840.1.835552.3.579. 2.462 Unknown [id number] 2.16.840.1.324309.3.579. 2.462 Unknown [id number] 2.840.1.211898.3.579. 2.462 Unknown [id number] 2.16.840.1.968341.3.579. 2.462 Unknown [id number] 2.840.1.429684.3.579. 2.462 Unknown [id number] 2.840.1.453697.3.579. 2.462 Unknown [id number] 2.840.1.080741.3.579. 2.462 Unknown [id number] 2.840.1.942701.3.579. 2.462 Unknown [id number] 2.840.1.890515.3.579. 2.462 Unknown [id number] 2.840.1.768528.3.579. 2.462 Unknown [id number] 2.840.1.925539.3.579. 2.462 Unknown [id number] 2.840.1.511889.3.579. 2.462 Unknown [id number] 2.840.1.932480.3.579. 2.462 Unknown [id number] 2.840.1.761494.3.579. 2.462 Unknown [id number] 2.840.1.267781.3.579. 2.462 Unknown [id number] 2.840.1.069589.3.579. 2.462 Unknown [id number] .840.1.581731.3.579. 2.462 Unknown [id number] 2.840.1.010364.3.579. 2.462 Unknown [id number] 2.840.1.259557.3.579. 2.462 Social History Date Type Detail Facility Start: 12-06-2021 End: 08-13-2023 Tobacco smoking status [facility] Unknown if ever smoked [facility] Start: 12-02-2019 None [facility] Start: 12-02-2019 Spouse/ Signif icant Other [facility] Start: 07-06-2020 Non-smoker [facility] Start: 1945 Sex Assigned At Female [facility] Start: 02-03-2012 End: 03-22-2025 Tobacco smoking status NHIS Ex-smoker [facility] End: 01-30-2012 History of tobacco use Current smoker [facility] End: 01-30-2012 History of tobacco use Cigarette Smoker [facility] Start: 02-03-2012 End: 03-22-2012 Cigarettes smoked current (pack per day) - Reported 0.5 [facility] Start: 02-03-2012 End: 03-22-2012 Tobacco use and exposure Smokeless tobacco non-user [facility] Start: 05-07-2021 End: 05-07-2022 Alcohol intake Current non-drinker of alcohol (finding) [facility] Start: 1945 Sex Assigned At Not on file 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 Start: 12-28-2023 Primary uncemented hemiarthroplasty of hip unitrax neck adjustment sleeve FDA Start: 12-28-2023 Primary uncemented hemiarthroplasty of hip ([id number]) [id number] FDA Start: 12-28-2023 Primary uncemented hemiarthroplasty of [...] Facility 03-25-2025 Functional status Ambulates;Gume r;Bathroom Privilege [facility] Work Phone: 02-17-2025 Functional status Chair [facility] Work Phone: 02-16-2025 Functional status Well [facility] Work Phone: 02-13-2025 Functional status Chair [facility] Work Phone: 02-06-2025 Functional status Chair [facility] Work Phone: 01-24-2025 Functional status Ambulates [facility] Work Phone: 01-23-2025 Functional status Fair [facility] Work Phone: 12-30-2023 Functional status Bedrest [facility] Work Phone: 08-17-2023 Functional status Ambulates [facility] Work Phone: Mental Status Date Assessment Result Facility 03-25-2025 Cognitive function Voice/Name [facility] Work Phone: 02-17-2025 Cognitive function Voice/Name [facility] Work Phone: 02-13-2025 Cognitive function Voice/Name [facility] Work Phone: 02-06-2025 Cognitive function Voice/Name [facility] Work Phone: 01-24-2025 Cognitive function Voice/Name [facility] Work Phone: 12-30-2023 Cognitive function Voice/Name [facility] Work Phone: 08-17-2023 Cognitive function Voice/Name [facility] Work Phone: 08-13-2023 Cognitive function Level Of Cons ciousness Awake;Alert;Appropriate;Follow s Commands [facility] Work Phone: 01-28-2023 Cognitive function Level Of Cons ciousness Awake;Alert;Appropriate;Follow s Commands [facility] Work Phone: Clinical Notes 03-14-2021 to 03-25-2025 Note Date & Type Note Facility 03-25-2025 Discharge summary Note Date/Time March 25, 2025 2:37pm [facility] Medical Records Department [address] [place] [address] Discharge Summary 03/25/25 1133 MR#: [id number] Acct: [id number] Name: OLGA DONALDSON Rep #:[id number] : 1945 80 From: Melba Hartmann MD PCP: Dr. 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 [...] 03/22/25 12:41 RMA (Rec: 03/22/25 12:41 RMA [id number]) Nutrition Malnutrition Evidence of Yes Malnutrition Exists [...] Neut % (Auto) 61.3, Lymph % (Auto) 26.3,Pondera % (Auto) 10.4 H, Eos % (Auto) [...] Health Service Charges/Coding Visit Charges Inpatient E&M: 99590 Disch Hosp >30min 03/25/25 1437 <Electronically signed by Melba Hartmann MD> Cosigner Signature (if applicable): CC: Dr. Ramone Smiley MD; Dr. Melba Hartmann MD~ Signed [facility] Work Phone: 1(316) 664-780207-26-2025 Hospital Discharge instructionsAdditional Instructions cardizem stopped. Metoprolol cut down to 12.5mg bid. Lasix reduced to 20mg daily due to to hypotension [facility]: [facility] Work Phone: 1(975) 175-630107-26-2025 Discharge summary Author [facility] Note Date/Time March 25, 2025 11:3 3am [facility] Medical Records Department [address] [place] [address] Instructions for Home/Discharge Instructions 03/25/25 1126 MR#: [id number] Acct: [id number] Name: OLGA DONALDSON Rep #:[id number] : 1945 80 From: Melba Hartmann MD [...] MD; Dr. Ramone Smiley MD ~ Signed [facility] Work Phone: 1(354) 541-527407-26-2025 [facility]07-25-2025 Progress note Author Melba Hartmann [facility] Note Date/Time March 24, 2025 4:46 pm [facility] Medical Records Department [address] [place] [address] Progress Note 03/24/25 1200 MR#: [id number] Acct: [id number] Name: OLGA DONALDSON Rep #:[id number] : 1945 80 From: Melba Hartmann MD PCP: Dr. Ramone Smiley MD Status:ADM IN Location: [facility] ZQ645-2 Subjective Subjective Patient seen and examined. She [...] 03/22/25 12:41 RMA (Rec: 03/22/25 12:41 RMA [id number]) Nutrition Malnutrition Evidence of Yes Malnutrition Exists [...] Neut % (Auto) 68.8, Lymph % (Auto) 21.3,Pondera % (Auto) 8.5, Eos % (Auto) 0.8, [...] prophylaxis: heparin. Charges/Coding Visit Charges Inpatient E&M: 24750 Subs Hosp L2 03/24/25 1646 <Electronically signed by Melba Hartmann MD> Melba Hartmann MD Cosigner Signature (if applicable): CC: ~ Signed [facility] Work Phone: 1(664) 525-759107-25-2025 Discharge summary Author Ethan Suarez [facility] Note Date/Time March 23, 2025 10:[facility] [address] [place] [address] Emergency Department Summary 03/21/25 MR#: [id number] Acct: [id number] Name: OLGA DONALDSON Rep #:[id number] : 1945 80 From: Ethan Casanova PCP: Dr. Ramone Smiley MD Status:ADM IN [id number] <Dr. Ethan Suarez DO - Last [...] to prolonged laying down at skilled facility. [facility] <Dr. Ethan Suarez, DO - Last Filed: 03/23/25 22:12> [facility] Medical History Former smoker On [...] mg tablet 25 mg PO BID BLOOD MS ESSURE 08/16/18 01/15/25 History pantoprazole 40 mg [...] me Verified 03/23/25 18:38 really crazy called register of wills on people amoxicillin AdvReac YEAST Verified 03/21/25 [...] clinician: N/A This note was generated with BroadClip dictation software. It may contain incorrectwords, spelling, [...] % (Auto) 62.3 Lymph % (Auto) 27.1 Pondera % (Auto) 8.6 Eos % (Auto) 0.8 [...] Sl. Cloudy Urine pH 7.0 Ur Specific [place] 1.010 Urine Protein 30 H Urine Glucose [...] in the abdominal CT report. Reading Location: [facility] Abdomen/Pelvis CT 03/21/25 18:02 IMPRESSION: 1. Similar patchy airspace consolidation in the bilateral lung bases, suggestingaspiration. 2. Moderate colonic stool burden with persistent mild distention and wall thickening of the rectal vault, suggesting chronic constipation and stercoral proctitis, although less pronounced from prior exam. 3. Multiple additional non-acute ancillary findings, as described above. Reading Location: [facility] <Dr. Noé Currie, DO - Last Filed: [...] clinician: N/A This note was generated with BroadClip dictation software. It may contain incorrectwords, spelling, [...] diffuse weakness and admitted ambulations admitted to [facility] under hospitalist. Discussed with Dr. Foster. [...] % (Auto) 62.3 Lymph % (Auto) 27.1 Pondera % (Auto) 8.6 Eos % (Auto) 0.8 [...] Sl. Cloudy Urine pH 7.0 Ur Specific Lakeside 1.010 Urine Protein 30 H Urine Glucose [...] in the abdominal CT report. Reading Location: [facility] Abdomen/Pelvis CT 03/21/25 18:02 IMPRESSION: 1. Similar patchy airspace consolidation in the bilateral lung bases, suggestingaspiration. 2. Moderate colonic stool burden with persistent mild distention and wall thickening of the rectal vault, suggesting chronic constipation and stercoral proctitis, although less pronounced from prior exam. 3. Multiple additional non-acute ancillary findings, as described above. Reading Location: [facility] Discharge Plan Dx/Rx/DC Orders Clinical Impression: Back muscle spasm, Acute UTI Disposition Disposition: Acute Care Hospital [facility] Discharge Date/Time: 03/22/25 00:22 What to do if you have Problems For any increased pain, shortness of breath, bleeding, nausea or vomiting, chestpain, or any unexpected problems, contact your Primary Care Provider. Call [facility] ([phone]) or report to the closest Emergency Room. Call 911 if necessary. 03/23/252211 <Electronically signed by Ethan Casanova> Cosigner Signature (if applicable): 03/21/25 2301 <Electronically signed by Noé Currie DO> CC: Dr. Ramone Smiley MD ~ Signed [facility] Work Phone: 1(737) 263-595807-24-2025 Progress note Author Melba [facility] Note Date/Time March 23, 2025 1:37 pm [facility] Medical Records Department [address] [place] [address] Progress Note 03/23/25 1328 MR#: [id number] Acct: [id number] Name: OLGA DONALDSON Rep #:[id number] : 1945 80 From: Melba Hartmann MD PCP: Dr. Ramone Smiley MD Status:ADM IN Location: [facility] ZQ407-0 Subjective Subjective Patient seen and examined with [...] 03/22/25 12:41 RMA (Rec: 03/22/25 12:41 RMA [id number]) Nutrition Malnutrition Evidence of Yes Malnutrition Exists [...] 76.1 H, Lymph % (Auto) 16.5 L, Pondera % (Auto) 6.8, Eos % (Auto) 0.0, [...] prophylaxis: heparin. Charges/Coding Visit Charges Inpatient E&M: 76403 Subs Hosp L2 03/23/25 1337 <Electronically signed by Melba Hartmann MD> Melba Hartmann MD Cosigner Signature (if applicable): CC: ~ Signed [facility] Work Phone: 1([phone]) 379-931807-23-2025 Progress note Author Melba [facility] Note Date/Time March 22, 2025 2:48 pm [facility] Medical Records Department [address] [place] [address] Progress Note 03/22/25 1428 MR#: [id number] Acct: [id number] Name: OLGA DONALDSON Rep #:[id number] : 1945 80 From: Melba Hartmann MD PCP: Dr. Ramone Smiley MD Status:ADM IN Location: [facility] NA419-4 Subjective Subjective Patient seen and examined with [...] 03/22/25 12:41 RMA (Rec: 03/22/25 12:41 RMA [id number]) Nutrition Malnutrition Evidence of Yes Malnutrition Exists [...] Sl. Cloudy, Urine pH 7.0, Ur Specific [place] 1.010, Urine Protein 30 H, Urine Glucose [...] Neut % (Auto) 62.3, Lymph % (Auto) 27.1,Pondera % (Auto) 8.6, Eos % (Auto) 0.8, [...] % (Auto) 65.3, Lymph % (Auto) 24.0, Pondera % (Auto) 8.0, Eos % (Auto) 0.9, [...] in the abdominal CT report. Reading Location: [facility] Abdomen/Pelvis CT 03/21/25 18:02 IMPRESSION: 1. Similar patchy airspace consolidation in the bilateral lung bases, suggestingaspiration. 2. Moderate colonic stool burden with persistent mild distention and wall thickening of the rectal vault, suggesting chronic constipation and stercoral proctitis, although less pronounced from prior exam. 3. Multiple additional non-acute ancillary findings, as described above. Reading Location: [facility] Physical Exam Const alert, oriented x3 and [...] prophylaxis: heparin. Charges/Coding Visit Charges Inpatient E&M: 53311 Subs Hosp L2 03/22/25 1268 <Electronically signed by Melba Hartmann MD> Melba Hartmann MD Cosigner Signature (if applicable): CC: ~ Signed [facility] Work Phone: 1(694) 403-729707-23-2025 History and physical note Author Abigail Foster [facility] Note Date/Time March 22, 2025 12:4 1am [facility] Medical Records Department [address] [place] [address] H&P Exam - Hospitalist 03/21/25 7815 MR#: [id number] Acct: [id number] Name: OLGA DONALDSON Rep #:[id number] : 1945 80 From: Abigail Foster MD PCP: Dr. Ramone Smiley MD Status:ADM IN Location: [facility] HF609-1 [facility] - General General Date of Admission: [...] considered in remission who presents to the [facility] ED on 03/21/2025 with history of [...] 1, morphine 2 mg IV x 1, [id number] mg p.o. x 1. [facility] Medical History Former smoker On [...] mg tablet 25 mg PO BID BLOOD MS ESSURE 08/16/18 01/15/25 History pantoprazole 40 mg [...] Sl. Cloudy, Urine pH 7.0, Ur Specific [place] 1.010, Urine Protein 30 H, Urine Glucose [...] Neut % (Auto) 62.3, Lymph % (Auto) 27.1,Pondera % (Auto) 8.6, Eos % (Auto) 0.8, [...] in the abdominal CT report. Reading Location: [facility] Abdomen/Pelvis CT 03/21/25 18:02 IMPRESSION: 1. Similar patchy airspace consolidation in the bilateral lung bases, suggestingaspiration. 2. Moderate colonic stool burden with persistent mild distention and wall thickening of the rectal vault, suggesting chronic constipation and stercoral proctitis, although less pronounced from prior exam. 3. Multiple additional non-acute ancillary findings, as described above. Reading Location: [facility] Assessment & Plan Assessment/Plan (1) Acute UTI: [...] considered in remission who presents to the [facility] ED on 03/21/2025 with history of [...] Time: 16minutes. Charges/Coding Visit Charges Inpatient E&M: 09178 Init Hosp L3 Procedures Hospitalists Procedures: 57484 Advncd Care Plan 30 Min 03/22/25 0041 <Electronically signed by Abigail Foster MD> Cosigner Signature (if applicable): CC: Dr. Abigail Foster MD; Dr. Ramone Smiley MD~ Signed [facility] Work Phone: 1(822) 815-174007-22-2025 Radiology [address] [facility]07-22-2025 Radiology Diagnostic study [facility]07-05-2025 Radiology Diagnostic study [facility] 03-04-2025 Discharge summary Author Jeevan [facility] Note Date/Time March 04, 2025 11:14 pm [facility] Medical Records Department [address] [place] [address] Emergency Department Summary 03/04/25 MR#: [id number] Acct: [id number] Name: OLGA DONALDSON Rep #:[id number] : 1945 80 From: Jeevan Yoder DO PCP: Dr. Ramone Smiley MD Status:[facility] ER Location: ED HPI History of [...] Patient denies any history of kidney stones. [facility] Medical History History of diabetes mellitus [...] mg tablet 25 mg PO BID BLOOD MS ESSURE 08/16/18 01/15/25 History pantoprazole 40 mg [...] % (Auto) 66.1 Lymph % (Auto) 24.2 Pondera % (Auto) 6.9 Eos % (Auto) 1.7 [...] Clarity Cloudy Urine pH 7.0 Ur Specific [place] 1.010 Urine Protein 100 H Urine Glucose [...] aspiration pneumonia. 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 Reading Location: [place] [address] Discharge Plan Triage Chief Complaint: Serna C/O [...] other concerns or worsening symptoms Print Language: Trinidadian Disposition Disposition: Home, Self Care What to do if you have Problems For any increased pain, shortness of breath, bleeding, nausea or vomiting, chestpain, or any unexpected problems, contact your Primary Care Provider. Call [facility] ([phone]) or report to the closest Emergency Room. Call 911 if necessary. 03/04/25 2314 <Electronically signed by Jeevan Yoder DO> Cosigner Signature (if applicable): CC: Dr. Ramoen Smiley MD ~ Signed [facility] Work Phone: 1([phone]) 772-742507-02-2025 Hospital Discharge instructionsAdditional Instructions Urine with signs of infection. You had infection a few weeks ago you self cath. Take finish antibiotic prescribed. Continue your Tylenol every 6 hours. Use Valium as needed. Follow-up with your doctor.[facility] Work Phone: 1(515) 787-823306-21-20[address] [facility]06-21-2025 Discharge summary Author Billy Kothari [facility] Note Date/Time February 19, 2025 12:0 5am [facility] Medical Records Department [address] [place] [address] Emergency Department Summary 02/18/25 MR#: [id number] Acct: [id number] Name: OLGA DONALDSON Rep #:[id number] : 1945 80 From: Billy Kothari MD PCP: Dr. Ramone Smiley MD Status:REG ER Location: ED HPI History of Present Illness Chief Complaint: Shortness of Breath Narrative Narrative: 80-year-old female past medical history of COPD, wears 2 to 3 L of oxygen, presents from intermediate facility with increasing shortness of breath. Sherelates history that she was admitted to the hospital for breathing difficulty and was released on Thursday. This is approximately 5 days ago. She is only at the intermediate facility temporarily. She states she does not see a transportation attendant. She has been taking prednisone since discharge. She presents today with increasing shortness of breath and occasional cough. No fevers or chills. [facility] Medical History History of diabetes mellitus [...] mg tablet 25 mg PO BID BLOOD MS ESSURE 08/16/18 01/15/25 History pantoprazole 40 mg [...] hence, she was admitted then placed in intermediate facility. Says that she had history of [...] on steroids and nebulizer treatments at the intermediate facility. She is motivated for discharge. Disposition [...] 78.7 H Lymph % (Auto) 12.5 L Pondera % (Auto) 6.7 Eos % (Auto) 1.0 [...] evaluation. No obvious acute finding. Reading Location: [facility] Discharge Plan Triage Chief Complaint: [...] wear your nasal cannula oxygen. Print Language: Trinidadian Disposition Disposition: Home, Self Care What to do if you have Problems For any increased pain, shortness of breath, bleeding, nausea or vomiting, chestpain, or any unexpected problems, contact your Primary Care Provider. Call [facility] ([phone]) or report to the closest Emergency Room. Call 911 if necessary. 02/19/25 0005 <Electronically signed by Billy Kothari MD> Cosigner Signature (if applicable): CC: Dr. Ramone Smiley MD ~ Signed [facility] Work Phone: 1([phone]) 488-895606-20-2025 Discharge summary Author Heydi Amaya [facility] Note Date/Time February 17, 2025 5:15 pm [facility] Medical Records Department [address] [place] [address] Discharge Summary 02/17/25 1713 MR#: [id number] Acct: [id number] Name: OLGA DONALDSON Rep #:[id number] : 1945 80 From: Heydi Amaya MD PCP: Dr. Ramone Smiley MD Status:ADM JESS [facility] Prov[facility] Date of Admission: 02/15/25 Date of [...] netarsudil 0.02 %-latanoprost 0.005 % eye drops ([facility]) 1 drp EACH EYE DAILYeye drops 01/15/25 [...] GERD, COPD, hypertension, diabetes who presented to [facility] ED 02/16/2025 with shortness of breath [...] (Auto) 86.1 H, Lymph % (Auto) 7.8L, Pondera % (Auto) 5.0, Eos % (Auto) 0.1, [...] in before D/C Order can be placed): Group Home Facility Charges/Coding Visit Charges Inpatient E&M: 34848 Disch Hosp 02/17/25 7933 <Electronically signed by Heydi Amaya MD> Cosigner Signature (if applicable): CC: Dr. Ramone Smiley MD; Dr. Heydi Amaya MD~ Signed [facility] Work Phone: 1(634) 222-678106-20-2025 Discharge summary Author Heydi Amaya [facility] Note Date/Time February 17, 2025 5:13 pm [facility] Medical Records Department [address] [place] [address] Transfer to [facility] MR#: [id number] Acct: [id number] Name: OLGA DONALDSON Rep #:[id number] : 1945 80 From: Heydi Amaya MD [...] PRIOR TO HIS/HER TRANSFER TO THE [facility]. 02/17/25 7083<Electronically signed by Heydi Amaya MD> Diet Diet [...] GERD, COPD, hypertension, diabetes who presented to [facility] ED 02/16/2025 with shortness of breath [...] in before D/C Order can be placed): Group Home Facility 02/17/25 1713 <Electronically signed by Heydi Amaya MD> Cosigner Signature (if applicable): CC: Dr. Nestor Bartlett DO; Dr. Ramone Smiley MD ~ [facility] Work Phone: 1(544) 508-699206-20-2025 [facility]06-19-2025 Progress note Author Heydi Amaya [facility] Note Date/Time February 16, 2025 4:45 pm [facility] Medical Records Department [address] [place] [address] Progress Note - Hospitalist 02/16/2529 MR#: [id number] Acct: [id number] Name: OLGA DONALDSON Rep #:[id number] : 1945 80 From: Heydi Amaya MD PCP: Dr. Ramone Smiley MD Status:ADM JESS Location: [place] [address] Reason for Visit Reason for Visit: Diagnoses [...] 82.5 H, Lymph % (Auto) 10.9 L, Pondera % (Auto) 4.8, Eos % (Auto) 0.7, [...] evidence of acute cardiopulmonary process. Reading Location: [facility] Physical Exam Narrative General: Alert, oriented, no [...] GERD, COPD, hypertension, diabetes who presented to [facility] ED 02/16/2025 with shortness of breath [...] Amaya MD Charges/Coding Visit Charges Inpatient E&M: 04622 Subs Hosp L2 02/16/25 5305 <Electronically signed by Heydi Amaya MD> Cosigner Signature (if applicable): CC: ~ Signed [facility] Work Phone: 1(333) 625-332306-18-2025 Discharge summary Author Robert Allison [facility] Note Date/Time February 15, 2025 3:14 pm [facility] Medical Records Department [address] [place] [address] Emergency Department Summary 02/15/25 MR#: [id number] Acct: [id number] Name: OLGA DONALDSON Rep #:[id number] : 1945 80 From: Robert Allison DO PCP: Dr. Ramone Smiley MD Status:ADM JESS Location: [place] [address] HPI History of Present Illness Chief Complaint: [...] a cough. Denies fever or chest pain. [facility] Medical History (Updated 02/15/25 @ 13:15 [...] mg tablet 25 mg PO BID BLOOD MS ESSURE 08/16/18 01/15/25 History pantoprazole 40 mg [...] and faint expiratory wheezes. Mild tachypnea. No customer trainer muscles or retractions Effort and Inspection: Negative [...] chronically has this type of elevation. BT GMAT TUTOR also elevated 4408 however this is significantly [...] They are requesting placement to rehab facility. wafer polishing worker saw patient and asked that we [...] 82.5 H Lymph % (Auto) 10.9 L Pondera % (Auto) 4.8 Eos % (Auto) 0.7 [...] evidence of acute cardiopulmonary process. [facility] 1 view chest x-ray obtained interpreted [...] Care Provider] - 3-5 Days Print Language: Trinidadian Disposition Disposition: Acute Care Hospital [facility] What to do if you have Problems For any increased pain, shortness of breath, bleeding, nausea or vomiting, chestpain, or any unexpected problems, contact your Primary Care Provider. Call [facility] ([phone]) or report to the closest Emergency Room. Call 911 if necessary. 02/15/25 8433 <Electronically signed by Robert Allison DO> Cosigner Signature (if applicable): CC: Dr. Ramone Smiley MD ~ Signed [facility] Work Phone: 1([phone]) 577-923106-18-2025 History and physical note Author Nestor Bartlett [facility] Note Date/Time February 15, 2025 2:57 pm [facility] Medical Records Department [address] [place] [address] H&P Exam - Hospitalist 02/15/25 1401 MR#: [id number] Acct: [id number] Name: OLGA DONALDSON Rep #:[id number] : 1945 80 From: Nestor roman DO PCP: Dr. Ramone Smiley MD Status:ADM JESS Location: [place] [address] HPI - General General Date of Admission: 02/15/25 Date of Service: 02/15/25 Chief Complaint: Shortness of breath, acute on chronic debility HPI Narrative OLGA DONALDSON, is a 80 F who presented to [facility] ED on 02/15/2025 with shortness of [...] currently. Will be admitted for further management. [facility] Medical History (Updated 02/15/25 @ [...] mg tablet 25 mg PO BID BLOOD MS ESSURE 08/16/18 01/15/25 History pantoprazole 40 mg [...] 01/15/25 01/15/25 History 0.005 % [facility] psyllium husk 0.4 gram capsule 0.4 g [...] 82.5 H, Lymph % (Auto) 10.9 L, Pondera % (Auto) 4.8, Eos % (Auto) 0.7, [...] evidence of acute cardiopulmonary process. Reading [facility] Assessment & Plan Assessment/Plan (1) Generalized weakness: PLAN: Plan Patient is an 80-year-old female who presented [facility] ED on 02/15/2025 with recurrent shortness of breath and acute on chronic debility. 1. Acute on chronic debility ? Admit under observation status to [facility]. PT/OT/case management consulted. Multiple recent hospitalizations [...] 75 minutes. Charges/Coding Visit Charges Inpatient E&M: 51748 Init Hosp L3 02/15/25 1457 <Electronically signed by Nestor Bartlett DO> Cosigner Signature (if applicable): CC: Dr. Nestor Bartlett DO; Dr. Ramone Smiley MD~ Signed [facility] Work Phone: 1(902) 596-102606-18-20[address] [facility]06-16-2025 Discharge summary Author Lucio Borden [facility] Note Date/Time February 13, 2025 2:22 pm [facility] Medical Records Department [address] [place] [address] Instructions for Home/Discharge Instructions 02/13/25 1415 MR#: [id number] Acct: [id number] Name: OLGA DONALDSON Rep #:[id number] : 1945 80 From: Lucio Borden DO [...] CC: Dr. Ramone Smiley MD ~ Signed [facility] Work Phone: 1(843) 803-252606-16-2025 [facility]06-15-2025 Progress note Author [facility] Note Date/Time February 12, 2025 11:2 5am [facility] Medical Records Department [address] [place] [address] Progress Note - Hospitalist 02/12/25 1123 MR#: [id number] Acct: [id number] Name: OLGA DONALDSON Rep #:[id number] : 1945 80 From: Lucio Borden DO PCP: Dr. Ramone Smiley MD Status:ADM IN [facility] Reason for Visit Reason for Visit: Diagnoses [...] 35- minutes Charges/Coding Visit Charges Inpatient E&M: 31857 Subs Hosp L2 02/12/25 1125 <Electronically signed by Lucio Borden DO> Cosigner Signature (if applicable): CC: ~ Signed [facility] Work Phone: 1(659) 768-959906-14-2025 Progress note Author [facility]io [facility] Note Date/Time February 11, 2025 4:29 pm [facility] Medical Records Department [address] [place] [address] Progress Note - Hospitalist 02/11/25 1621 MR#: [id number] Acct: [id number] Name: OLGA DONALDSON Rep #:[id number] : 1945 80 From: Lucio Borden DO PCP: Dr. Ramone Smiley MD Status:ADM IN [facility] Reason for Visit Reason for Visit: Diagnoses [...] 35- minutes Charges/Coding Visit Charges Inpatient E&M: 97331 Subs Hosp L2 02/11/25 1624 <Electronically signed by Lucio Borden DO> Cosigner Signature (if applicable): CC: ~ Signed [facility] Work Phone: 1(571) 538-236806-13-2025 Progress note Author Lucio [facility] Note Date/Time February 10, 2025 5:29 pm [facility] Medical Records Department [address] [place] [address] Progress Note - Hospitalist 02/10/25 1720 MR#: [id number] Acct: [id number] Name: OLGA DONALDSON Rep #:[id number] : 1945 80 From: Lucio Borden DO PCP: Dr. Ramone Simley MD Status:ADM IN [facility] Reason for Visit Reason for Visit: Diagnoses [...] 35- minutes Charges/Coding Visit Charges Inpatient E&M: 66153 Subs Hosp L2 02/10/25 1729 <Electronically signed by Lucio Borden DO> Cosigner Signature (if applicable): CC: ~ Signed [facility] Work Phone: 1([phone]) 869-637406-12-2025 History and physical note Author Tono Gomez [facility] Note Date/Time February 09, 2025 7:17 pm [facility] Medical Records Department [address] [place] [address] H&P Exam - Hospitalist 02/09/25 1525 MR#: [id number] Acct: [id number] Name: OLGA DONALDSON Rep #:[id number] : 1945 80 From: Tono BHATTI PCP: Dr. Ramone Smiley MD Status:ADM IN Location: [facility] HP421-0 HPI - General General Date of Service: [...] tightness, no dizziness or lightheadedness, no palpitations. [facility] Medical History COPD with exacerbation [...] mg tablet 25 mg PO BID BLOOD MS ESSURE 08/16/18 01/15/25 History pantoprazole 40 mg [...] (Auto) 86.9 H, Lymph % (Auto) 7.3L, Pondera % (Auto) 4.5, Eos % (Auto) 0.1, [...] degree of bibasilar linear atelectasis. Reading Location: [facility]-1 Assessment & Plan Assessment/Plan (1) COPD [...] assessment and findings. Visit Charges Inpatient E&M: 82803 Init Hosp L2 02/09/251916<Electronically signed by Lucio Borden DO> Cosigner Signature (if applicable): cc: DAVY Dykes; Dr. Ramone Smiley MD; Dr. Lucio Borden DO ~* Signed [facility] Work Phone: 1([phone]) 952-836106-12-2025 Discharge summary Author Jeremiah Corrales [facility] Note Date/Time February 09, 2025 2:57 pm [facility] Medical Records Department [address] [place] [address] Emergency Department Summary 02/09/25 MR#: [id number] Acct: [id number] Name: OLGA DONALDSON Rep #:[id number] : 1945 80 From: Jeremiah Corrales MD [...] Prior similar symptoms: Yes Recent Illness/Hospitalization: Yes [facility] Medical History COPD with exacerbation Anemia [...] mg tablet 25 mg PO BID BLOOD MS ESSURE 08/16/18 01/15/25 History pantoprazole 40 mg [...] 86.9 H Lymph % (Auto) 7.3 L [place] % (Auto) 4.5 Eos % (Auto) 0.1 [...] degree of bibasilar linear atelectasis. Reading Location: [facility]-1 Chest x-ray, 2 views, interpreted by [...] rhythm rate of 93 no acute signs [place] or ischemia. Patient does have inverted T waves in V4 5 and 6 slight change from prior EKG from February 04. Prior EKG tracings: available for review Prior: Changed Discharge Plan Dx/Rx/DC Orders Clinical Impression: Acute dyspnea, Elevated troponin, Hypoxia, COPD exacerbation, History of diabetes mellitus Disposition Disposition: Acute Care Hospital [facility] What to do if you have Problems For any increased pain, shortness of breath, bleeding, nausea or vomiting, chestpain, or any unexpected problems, contact your Primary Care Provider. Call [facility] ([phone]) or report to the closest Emergency Room. Call 911 if necessary. 02/09/25 1457 <Electronically signed by Jeremiah Corrales MD> Cosigner Signature (if applicable): CC: Dr. Ramone Smiley MD ~ Signed [facility] Work Phone: 1(530) 112-979006-12-[address] [facility]06-09-2025 Discharge summary Author Lucio Borden [facility] Note Date/Time February 06, 2025 2:01p [facility] Medical Records Department [address] [facility] [place] [address] Instructions for Home/Discharge Instructions 02/06/25 1351 MR#: [id number] Acct: [id number] Name: OLGA DONALDSON Rep #:[id number] : 1945 80 From: Lucio Borden DO [...] CC: Dr. Ramone Smiley MD ~ Signed [facility] Work Phone: 1(355) [phone] [facility]06-08-2025 Progress note Author Lucio [facility] Note Date/Time February 05, 2025 2:48p m [facility] Medical Records Department [address] [place] [address] Progress Note - Hospitalist 02/05/25 1442 MR#: [id number] Acct: [id number] Name: OLGA DONALDSON Rep #:[id number] : 1945 80 From: Lucio Borden DO PCP: Dr. Ramone Smiley MD Status:ADM IN Location: [facility] RAY558- 1 Subjective Subjective Patient was seen and [...] not believe the patient has had an [place] #4 type 2 diabetes-blood sugars will be [...] 35 minutes Charges/Coding Visit Charges Inpatient E&M: 62758 Subs Hosp L2 02/05/25 1448 <Electronically signed by Lucio Borden DO> Cosigner Signature (if applicable): CC: ~ Signed [facility] Work Phone: 1([phone]) [phone] Discharge summary Author Aj Holley [facility] Note Date/Time February 04, 2025 10:27 am [facility] Medical Records Department [address] [place] [address] Emergency Department Summary 02/04/25 MR#: [id number] Acct: [id number] Name: OLGA DONALDSON Rep #:[id number] : 1945 80 From: Aj Holley MD [...] of the couch, and has no pain. [facility] Medical History Elevated troponin Coronary artery [...] mg tablet 25 mg PO BID BLOOD MS ESSURE 08/16/18 01/15/25 History pantoprazole 40 mg [...] 75.4 H Lymph % (Auto) 15.7 L [place] % (Auto) 6.6 Eos % (Auto) 1.7 [...] MD [Primary Care Provider] - Print Language: Trinidadian What to do if you have Problems For any increased pain, shortness of breath, bleeding, nausea or vomiting, chestpain, or any unexpected problems, contact your Primary Care Provider. Call [facility] ([phone]) or report to the closest Emergency Room. [...] 11.8 and 37.9. White count slightly elevated [place] 0.2 thousand. There is slight shift with [...] cc: Dr. Ramone Smiley MD ~* Signed [facility] Work Phone: 1([phone]) 258-822006-07-[address] [facility]06-07-2025 [address] [facility]05-29-2025 [address] [facility] 01-24-2025 [facility]05-26-2025 Progress note Author Becca Silverman [facility] Note Date/Time January 23, 2025 3:40p m [facility] Medical Records Department [address] [place] [address] Progress Note - Cardiology 01/23/25 1528 MR#: [id number] Acct: [id number] Name: OLGA DONALDSON Rep #:[id number] : 1945 80 From: Becca Silverman MD PCP: Dr. Ramone Smiley MD Status:ADM IN Location: [place] [address] Subjective Subjective Seen and evaluated at bedside [...] (Auto) 90.8 H, Lymph % (Auto) 6.2L, [place] % (Auto) 2.7, Eos % (Auto) 0.0, [...] (Auto)90.8 H, Lymph % (Auto) 6.2 L, [place] % (Auto) 2.7, Eos % (Auto) 0.0, [...] up an appointment to be seen by rotor casting machine setup operator as an outpatient and discussed further plan possible Lexiscan sestamibi and based on results of Lexiscan sestamibi to consider further evaluation. To minimize risk of contrast-induced nephropathy. Becca Silverman MD,[facility] 01/23/25 1540 <Electronically signed by Becca Silverman MD> Cosigner Signature (if applicable): CC: ~ Signed [facility] Work Phone: 1(122) 481-116105-26-2025 Progress note Author Melba [facility] Note Date/Time January 23, 2025 2:43p m [facility] Medical Records Department [address] [place] [address] Progress Note 01/23/25 1037 MR#: [id number] Acct: [id number] Name: OLGA DONALDSON Rep #:[id number] : 1945 80 From: Melba Hartmann MD PCP: Dr. Ramone Smiley MD Status:ADM IN Location: [place] [address] Subjective Subjective Patient seen and examined. She [...] (Auto) 90.8 H, Lymph % (Auto) 6.2L, [place] % (Auto) 2.7, Eos % (Auto) 0.0, [...] These were held * on ISS. Accuchecks [facility]. * on gabapentin * #History of left sided breast cancer: s/p lumpectomy in 2003. #History of multinodular goiter. stable #Glaucoma: on netarsudil-latanoprost eye drops. #History of neurogenic bladder: stable #GERD: On PPI #DVT prophylaxis: Heparin Charges/Coding Visit Charges Inpatient E&M: 17345 Subs Hosp L2 01/23/25 9063 <Electronically signed by Melba Hartmann MD> Melba Hartmann MD Cosigner Signature (if applicable): CC: ~ Signed [facility] Work Phone: 1(155) 353-742105-25-2025 Progress note Author Melba [facility] Note Date/Time January 22, 2025 2:00p m [facility] Medical Records Department [address] [place] [address] Progress Note 05/25/25 0949 MR#: [id number] Acct: [id number] Name: OLGA DONALDSON Rep #:[id number] : 1945 80 From: Melba Hartmann MD PCP: Dr. Ramone Smiley MD Status:ADM IN Location: [place] [address] Subjective Subjective Patient seen and examined this [...] 91.4 H, Lymph % (Auto) 5.7 L, [place] % (Auto) 2.4, Eos % (Auto) 0.0, [...] to PCU Charges/Coding Visit Charges Inpatient E&M: 75686 Subs Hosp L2 01/22/25 1242 <Electronically signed by Melba Hartmann MD> Melba Hartmann MD Cosigner Signature (if applicable): CC: ~ Signed ADDENDUM by Dr. Melba Hartmann MD on 01/22/25 at 1400 Addendum 1:30pm Patient's son Ursula Lees Jr called on the phone ([phone]) and updated about his mother's condition. 01/22/25 1400 <Electronically signed by Melba vivas MD> Date _ Melba Hartmann MD Cosigner Signature (if applicable): Date cc: ~* Signed [facility] Work Phone: 1(502) 498-460905-24-2025 Progress note Author Melba Hartmann [facility] Note Date/Time January 21, 2025 2:07p [facility] Medical Records Department [address] [facility] [place] [address] Progress Note 01/21/25 1039 MR#: [id number] Acct: [id number] Name: OLGA DONALDSON Rep #:[id number] : 1945 80 From: Melba Hartmann MD [...] 88.4 H, Lymph % (Auto) 7.7 L, Pondera % (Auto) 3.5, Eos % (Auto) 0.0, [...] H, Calcium 9.8, [place] [address] H 01/21/25 08:06: POC Glucose 202 H [...] noted. Cardiomegaly. No pericardial effusion. Reading Location: [id number] Echocardiogram 01/20/25 04:12 Interpretation Summary Mildly dilated left ventricle. The estimated ejection fraction is 35-40 %. There is evidence of diastolic dysfunction. There is moderate global hypokinesis of the left ventricle. Trivial mitral valve insufficiency. Mild aortic stenosis. Trivial aortic valve insufficiency. Ordering Physician: Sandeep Carlton Referring Physician: Ramone Smiley Performed By: Margot Cleary, RDCS, RVT Chest X-Ray 01/21/25 05:55 IMPRESSION: New appearing ledu-ae-jvbqgalt ill-defined perihilar opacity at the left upper lobe may represent developing infiltrate or less likely an asymmetric edema pattern. Bilateral medial retrocardiac lower lobe streaky opacities not significantly changed. No pleural effusions identified. Reading Location: [facility] Physical Exam Const alert, oriented x3, [...] prophylaxis: Heparin Charges/Coding Visit Charges Inpatient E&M: 35861 Subs Hosp L2 01/21/25 1424 <Electronically signed by Melba Hartmann MD> Melba Bachignrichar Signature (if applicable): CC: ~ Signed [facility] Work Phone: 1(302) 137-178405-24-2025 Radiology Diagnostic [address] [facility]05-23-2025 Progress note Author Lucio Borden [facility] Note Date/Time January 20, 2025 4:58p m [facility] Medical Records Department [address] [place] [address] Progress Note - Hospitalist 01/20/25 1657 MR#: [id number] Acct: [id number] Name: OLGA DONALDSON Rep #:[id number] : 1945 80 From: Lucio Borden DO PCP: Dr. Ramone Smiley MD Status:ADM IN Location: [place] [address] Hospitalist Note Patient continues to have respiratory [...] Cosigner Signature (if applicable): CC: ~ Signed [facility] Work Phone: 1(935) 603-223805-23-2025 Progress note Author Lucio [facility] Note Date/Time January 20, 2025 11:20 am [facility] Medical Records Department [address] [place] [address] Progress Note - Hospitalist 01/20/25 1119 MR#: [id number] Acct: [id number] Name: OLGA DONALDSON Rep #:[id number] : 1945 80 From: Lucio Borden DO PCP: Dr. Ramone Smiley MD Status:ADM IN Location: [place] [address] Hospitalist Note Patient was seen and examined today, made the decision to change the patient to Airvo, patient was admitted for suspected right lower lobe pneumonia and exacerbation of COPD, she remained on aerosol treatments, IV Solu-Medrol, and IVlevofloxacin. 01/20/25 1120 <Electronically signed by Lucio Borden DO> Cosigner Signature (if applicable): CC: ~ Signed [facility] Work Phone: 1(449) 528-321505-23-2025 History and physical note Author Sandeep Marie [facility] Note Date/Time January 20, 2025 6:06a m [facility] Medical Records Department [address] [place] [address] H&P Exam - Hospitalist 01/20/25 0241 MR#: [id number] Acct: [id number] Name: OLGA DONALDSON Rep #:[id number] : 1945 80 From: Sandeep Dukes DO PCP: Dr. Ramone Smiley MD Status:ADM IN Location: [place] [address] HPI - General General Date of Admission: [...] stenosis of lumbar region who presents to [facility] ER complaining of shortness of breath. [...] is expected to extend beyond 2 midnights. [facility] Medical History Fracture of hip, [...] mg tablet 25 mg PO BID BLOOD MS ESSURE 08/16/18 01/15/25 History pantoprazole 40 mg [...] Neut % (Auto) 58.4, Lymph % (Auto) 32.0,Pondera % (Auto) 7.7, Eos % (Auto) 0.8, [...] Clarity Clear, Urine pH 6.0, Ur Specific Lakeside 1.010, Urine Protein 100 H, Urine Glucose [...] noted. Cardiomegaly. No pericardial effusion. Reading Location: [id number] Assessment & Plan Assessment/Plan (1) Pneumonia: QUALIFIERS: [...] twice daily. Give acetaminophen as needed for ytab-ak-xaibpqtz (level 1-5/10) pain or fever. Give morphine [...] responsive hypotension Charges/Coding Visit Charges Inpatient E&M: 42186 Init Hosp L3 01/20/25 0606 <Electronically signed by Sandeep Carlton DO> Cosigner Signature (if applicable): CC: Dr. Sandeep Carlton DO; Dr. Ramone Smiley MD~ Signed [facility] Work Phone: 1(498) 566-201105-23-2025 Evaluation note* Diagnosis Onset Date Resolution Status [...] 2024 3:32am Hypertension chronic January 20 3:32am [facility] Work Phone: 1(109) 406-705905-23-2025 Evaluation note* Diagnosis Onset Date Resolution Status [...] 20, 2025 3:32am Obesity (BMI 30.0-34.9) inactive [facility] 2024 3:32am Aortic stenosis acute January 31, [...] diabetes mellitus chronic February 04, 2025 10:52am [facility] Work Phone: 1(308) 523-486205-23-2025 Evaluation note* Diagnosis Onset Date Resolution Status [...] 20, 2025 3:32am Obesity (BMI 30.0-34.9) inactive [facility] 2024 3:32am Aortic stenosis acute January 31, [...] diabetes mellitus chronic February 04, 2025 10:52am [facility] Work Phone: 1(701) 505-580405-23-2025 Evaluation note* Diagnosis Onset Date Resolution Status [...] 20, 2025 3:32am Obesity (BMI 30.0-34.9) inactive [facility] 2024 3:32am Aortic stenosis acute January 31, [...] failure remov ed February 09, 2025 3:00pm [facility] Work Phone: 1(464) 480-189005-23-2025 Evaluation note* Diagnosis Onset Date Resolution Status [...] 2025 1:42pm Hypertension chronic January 31 1:42pm [facility] Work Phone: 1(710) 614-976205-23-2025 Evaluation note* Diagnosis Onset Date Resolution Status [...] failure remov ed February 09, 2025 3:00pm [facility] Work Phone: 1(402) 986-596405-23-2025 Evaluation note* Diagnosis Onset Date Resolution Status [...] Generalized weakness inactive February 15, 2025 2:01pm [facility] Work Phone: 1(820) 335-118405-23-2025 Evaluation note* Diagnosis Onset Date Resolution Status [...] Generalized weakness inactive February 15, 2025 2:01pm [facility] Work Phone: 1(656) 260-806805-23-2025 Evaluation note* Diagnosis Onset Date Resolution Status [...] Back muscle spasm acute March 212024 11:03pm [facility] Work Phone: 1(167) 574-921305-23-2025 Evaluation note* Diagnosis Onset Date Resolution Status [...] 11:03pm COPD exacerbation chronic March 212024 11:03pm [facility] Work Phone: 1(441) [phone] Discharge summary Author Jeevan Yoder [facility] Note Date/Time January 20, 2025 2:43a m [facility] Medical Records Department [address] [place] [address] Emergency Department Summary 01/20/25 MR#: [id number] Acct: [id number] Name: OLGA DONALDSON Rep #:[id number] : 1945 80 From: Jeevan Yoder DO [...] has had progressive worsening shortness of breath. [facility] Medical History Fracture of hip, left, [...] mg tablet 25 mg PO BID BLOOD MS ESSURE 08/16/18 01/15/25 History pantoprazole 40 mg [...] % (Auto) 58.4 Lymph % (Auto) 32.0 Pondera % (Auto) 7.7 Eos % (Auto) 0.8 [...] Clarity Clear Urine pH 6.0 Ur Specific Lakeside 1.010 Urine Protein 100 H Urine Glucose [...] noted. Cardiomegaly. No pericardial effusion. Reading Location: [id number] Discharge Plan Triage Chief Complaint: Shortness of [...] MD [Primary Care Provider] - Print Language: Trinidadian What to do if you have Problems For any increased pain, shortness of breath, bleeding, nausea or vomiting, chestpain, or any unexpected problems, contact your Primary Care Provider. Call [facility] ([phone]) or report to the closest Emergency Room. Call 911 if necessary. 01/20/25 7470 <Electronically signed by Jeevan Yoder DO> Cosigner Signature (if applicable): CC: Dr. Ramone Smiley MD ~ Signed [facility] Work Phone: 1([phone]) [phone] Rad[address] [facility]05-18-2025 Discharge summary [facility] Medical Records Department [address] [place] [address] Emergency Department Summary 01/15/25 MR#: [id number] Acct: [id number] Name: OLGA DONALDSON Rep #:[id number] : 1945 80 From: Jeevan Yoder DO [...] of the antibiotic that was placed on. [facility] Medical History Fracture of hip, left, [...] mg tablet 25 mg PO BID BLOOD MS ESSURE 08/16/18 01/15/25 History pantoprazole 40 mg [...] 72.7 H Lymph % (Auto) 18.1 L Pondera % (Auto) 6.9 Eos % (Auto) 1.6 [...] with mild congestion. Reading Location: [facility] Discharge Plan Triage Chief Complaint: Shortness [...] with worsening symptoms or concerns. Print Language: Trinidadian Disposition Disposition: Home, Self Care What to do if you have Problems For any increased pain, shortness of breath, bleeding, nausea or vomiting, chestpain, or any unexpected problems, contact your Primary Care Provider. Call [facility] ([phone]) or report tothe closest Emergency Room. Call 911 if necessary. 01/15/25 184 Cosigner Signature (if applicable): CC: Dr. Ramone Smiley MD ~ Signed [facility]05-18-2025 Radiology Diagnostic study note [facility] Imaging Services [address] [place], [place] [address] Chest PA and Lateral MR#: [id number] Acct: [id number] Name: OLGA DONALDSON Rep #: [id number] : 1945 F 80 From: Kary Suarez MD PCP: Dr. Ramone Smiley MD Status: REG ER Study:Chest PA and Lateral Date of Exam: 01/15/25 Exam# [id number] Ordering Dr: Yoly Yoder DO EXAM: XR Chest, 2 Views CLINICAL INDICATION: CHEST PAIN TECHNIQUE: Frontal and lateral views of the chest. COMPARISON: No relevant prior studies available. FINDINGS: LUNGS AND PLEURAL SPACES: See below. HEART: Cardiomegaly with mild congestion. MEDIASTINUM: Unremarkable. Normal mediastinal contour. BONES/JOINTS: Unremarkable. No acute fracture. RAD/Chest PA and Lateral IMPRESSION: Cardiomegaly with mild congestion. Reading Location: [facility] CC: Dr. Ramone Smiley MD; Dr. Jeevan Yoder DO ~ [employer] Tower Operator: Signed [facility]05-18-2025 Discharge summary Author Jeevan Yoder [facility] Note Date/Time January 15, 2025 6:45p m [facility] Medical Records Department [address] [place] [address] Emergency Department Summary 01/15/25 MR#: [id number] Acct: [id number] Name: OLGA DONALDSON Rep #:[id number] : 1945 80 From: Jeevan Yoder DO [...] of the antibiotic that was placed on. [facility] Medical History Fracture of hip, left, [...] mg tablet 25 mg PO BID BLOOD MS ESSURE 08/16/18 01/15/25 History pantoprazole 40 mg [...] 72.7 H Lymph % (Auto) 18.1 L Pondera % (Auto) 6.9 Eos % (Auto) 1.6 [...] IMPRESSION: Cardiomegaly with mild congestion. Reading Location: [facility] Discharge Plan Triage Chief Complaint: Shortness of [...] with worsening symptoms or concerns. Print Language: Trinidadian Disposition Disposition: Home, Self Care What to do if you have Problems For any increased pain, shortness of breath, bleeding, nausea or vomiting, chestpain, or any unexpected problems, contact your Primary Care Provider. Call [facility] ([phone]) or report to the closest Emergency Room. Call 911 if necessary. 01/15/251844 <Electronically signed by Jeevan Yoder DO> Cosigner Signature (if applicable): CC: Dr. Ramone Smiley MD ~ Signed [facility] Work Phone: 1(365) 917-834105-10-2025 Discharge summary [facility] Medical Records Department [address] [place] [address] Emergency Department Summary 01/07/25 MR#: [id number] Acct: [id number] Name: OLGA DONALDSON Rep #:[id number] : 1945 80 From: Ethan Casanova PCP: [...] mg tablet 25 mg PO BID BLOOD MS ESSURE 08/16/18 08/12/23 History pantoprazole 40 mg [...] clinician: N/A This note was generated with BroadClip dictation software. It may contain incorrectwords, spelling, [...] % (Auto) 58.0 Lymph % (Auto) 31.8 Pondera % (Auto) 7.6 Eos % (Auto) 1.9 [...] IMPRESSION: Cardiomegaly without overt failure. Reading Location: [facility] Discharge Plan Triage Chief Complaint: Shortness of [...] steroids is tomorrow. This was sent to [employer]. Print Language: Trinidadian Disposition Disposition: Home, Self Care What to do if you have Problems For any increased pain, shortness of breath, bleeding, nausea or vomiting, chestpain, or any unexpected problems, contact your Primary Care Provider. Call [facility] ([phone]) or report tothe closest Emergency Room. Call 911 if necessary. 01/07/25 1700 Cosigner Signature (if applicable): CC: Dr. Ramone Smiley MD ~ Signed [facility]05-10-2025 Radiology Diagnostic study note [facility] Imaging Services [address] [place] [address] Chest PA and Lateral MR#: [id number] Acct: [id number] Name: OLGA DONALDSON Rep #: [id number] : 1945 F 80 From: Kary Suarez MD PCP: Dr. Ramone Smiley MD Status: PRE ER Study:Chest PA and Lateral Date of Exam: 01/07/25 Exam# [id number] Ordering Dr: Ethan Suarez DO EXAM: XR Chest, 2 Views CLINICAL INDICATION: COUGH TECHNIQUE: Frontal and lateral views of the chest. COMPARISON: No relevant prior studies available. FINDINGS: LUNGS AND PLEURAL SPACES: Unremarkable. No consolidation. No pneumothorax. HEART: Cardiomegaly without overt failure. MEDIASTINUM: Unremarkable. Normal mediastinal contour. BONES/JOINTS: Unremarkable. No acute fracture. RAD/Chest PA and Lateral IMPRESSION: Cardiomegaly without overt failure. Reading Location: [id number] CC: Dr. Ramone Smiley MD; Dr. Ethan Suarez DO ~ [employer] Tower Operator: Signed [facility]05-10-2025 Discharge summary Author Ethan Suarez [facility] Note Date/Time January 07, 2025 5:00p m [facility] Medical Records Department [address] [place] [address] Emergency Department Summary 01/07/25 MR#: [id number] Acct: [id number] Name: OLGA DONALDSON Rep #:[id number] : 1945 80 From: Etahn Casanova PCP: Dr. Ramone Smiley MD Status:REG [...] mg tablet 25 mg PO BID BLOOD MS ESSURE 08/16/18 08/12/23 History pantoprazole 40 mg [...] clinician: N/A This note was generated with BroadClip dictation software. It may contain incorrectwords, spelling, [...] % (Auto) 58.0 Lymph % (Auto) 31.8 Pondera % (Auto) 7.6 Eos % (Auto) 1.9 [...] Cardiomegaly without overt failure. Reading Location: [facility] Discharge Plan Triage Chief [...] steroids is tomorrow. This was sent to [employer]. Print Language: Trinidadian Disposition Disposition: Home, Self Care What to do if you have Problems For any increased pain, shortness of breath, bleeding, nausea or vomiting, chestpain, or any unexpected problems, contact your Primary Care Provider. Call [facility] ([phone]) or report to the closest Emergency Room. Call 911 if necessary. 01/07/25 1700 <Electronically signed by Ethan Casanova> Cosigner Signature (if applicable): CC: Dr. Ramone Smiley MD ~ Signed [facility] Work Phone: 1(812) 932-865305-01-2024 Progress note Author [facility] December 30, 2023 12:34pm Note Date/Time December 30, 2023 12:35p [facility] Medical Records Department [address] [place] [address] Progress Note - Hospitalist 12/30/23 1228 MR#: [id number] Acct: [id number] Name: OLGA DONALDSON Rep #:[id number] : 1945 78 From: Sunny Blue PCP: Dr. Ramone Smiley MD Status:ADM IN Location: [place] [address] Reason for Visit Reason for Visit: Diagnoses [...] % (Auto) 63.9, Lymph % (Auto) 25.3, Pondera % (Auto) 8.7, Eos % (Auto) 1.4, [...] Patient is a 78-year-old female who presented [facility] ED on 12/27/2023 with left hip pain after a fall at home. She got up from the couch toself catheter, got her walker turned and then lost balance and fell on her left hip. 1. Acute debility due to left impacted transcervical femoral neck fracture. ? Admit under inpatient status to [facility]. Orthopedics consulted. N.p.o. at midnight. [...] cousin over the phone who lives in [place]. Patient is clinically doing well. Currently [...] disposition: TBD Charges/Coding Visit Charges Inpatient E&M: 83404 Subs Hosp L2 12/30/23 1234 <Electronically signed by Sunny Bell MD> Cosigner Signature (if applicable): CC: ~ Signed [facility] Work Phone: 1(987) 188-721804-30-2024 Progress note Author Sunny Bell [facility] December 29, 2023 12:47pm Note Date/Time December 29, 2023 9:3 0am [facility] Medical Records Department [address] [place] [address] Progress Note - Hospitalist 12/29/23 0929 MR#: [id number] Acct: [id number] Name: OLGA DONALDSON Rep #:[id number] : 1945 78 From: Sunny Blue PCP: Dr. Ramone Smiley MD Status:ADM IN Location: [place] [address] Reason for Visit Reason for Visit: Diagnoses [...] (Auto) 81.1 H, Lymph %(Auto) 9.5 L, Pondera % (Auto) 8.5, Eos % (Auto) 0.1, [...] Patient is a 78-year-old female who presented [facility] ED on 12/27/2023 with left hip pain after a fall at home. She got up from the couch toself catheter, got her walker turned and then lost balance and fell on her left hip. 1. Acute debility due to left impacted transcervical femoral neck fracture. ? Admit under inpatient status to [facility]. Orthopedics consulted. N.p.o. at midnight. [...] cousin over the phone who lives in [place]. Patient is clinically doing well. Currently [...] disposition: TBD Charges/Coding Visit Charges Inpatient E&M: 48713 Subs Hosp L2 12/29/23 4352 <Electronically signed by Sunny Bell MD> Cosigner Signature (if applicable): CC: ~ Signed [facility] Work Phone: 1(639) 554-638304-30-2024 Progress note Author Sj Delacruz [facility] December 29, 2023 11:56am Note Date/Time December 29, 2023 11: 56am [facility] Medical Records Department [address] [place] [address] Progress Note - Orthopedic 12/29/23 1152 MR#: [id number] Acct: [id number] Name: OLGA DONALDSON Rep #:[id number] : 1945 78 From: Sj BHATTI PA-C PCP: Dr. Ramone Smiley MD Status:ADM IN Location: MS3 ZU129-3 Subjective Subjective Patient sitting at bedside watching [...] (Auto) 81.1 H, Lymph %(Auto) 9.5 L, Pondera % (Auto) 8.5, Eos % (Auto) 0.1, [...] 14:25 EDT Reading Location ID and State: [facility] / [place] , Service support , Hip X-Ray 12/28/23 [...] Cosigner Signature (if applicable): CC: ~ Signed [facility] Work Phone: 1(664) 218-933004-29-2024 Consult note Author [facility] December 28, 2023 12:59pm Note Date/Time December 28, 2023 12: 59pm [facility] Medical Records Department [address] [place] [address] Consultation - Orthopedics 12/28/23 1252 MR#: [id number] Acct: [id number] Name: OLGA DONALDSON Rep #:[id number] : 1945 78 From: Gabriel Blue PCP: Dr. Ramone Smiley MD Status:ADM IN Location: [place] [address]-1 HPI Consult Data Date of Consult: 12/28/23 [...] She denies any previous DVTs or PEs. [facility] Medical History Anemia Anxiety Aortic [...] % (Auto) 51.7, Lymph % (Auto) 37.1, Pondera % (Auto) 6.6, Eos % (Auto) 3.1, [...] 23:29 EDT Reading Location ID and State: [facility] / [employer] , Service support , Hip/Pelvis X-Ray 12/27/23 23:05 IMPRESSION: Acute impacted fracture of the transcervical femoral neck. Electronically Signed: Weston Patel MD at 23:30 EDT Reading Location ID and State: 3527 / [employer] , Service support , Assessment & [...] rehab. Patient's projected recovery will likely require intermediate or intensive inpatient rehabilitation prior to discharge back home. (2) Falls: (3) Weakness: (4) Microcytic anemia: (5) Chronic renal failure, stage 3 (moderate): QUALIFIERS: Chronic kidney disease stage 3 subtype: unspecified whether 3a or 3b Qualified Code(s): N18.30 - Chronic kidney disease, stage 3 unspecified 12/28/23 1259 <Electronically signed by Gabriel Byrd MD> Cosigner Signature (if applicable): CC: Dr. Ramone Smiley MD~ Signed [facility] Work Phone: 1(997) 293-236804-29-[address] [facility] 12-28-2023 Progress note Author Sunny Bell [facility] December 28, 2023 11:23am Note Date/Time December 28, 2023 9:5 2am [facility] Medical Records Department [address] [place] [address] Progress Note - Hospitalist 12/28/23 0949 MR#: [id number] Acct: [id number] Name: OLGA DONALDSON Rep #:[id number] : 1945 78 From: Sunny Blue PCP: Dr. Ramone Smiley MD Status:ADM [id number] Reason for Visit Reason for Visit: Diagnoses [...] % (Auto) 51.7, Lymph % (Auto) 37.1, Pondera % (Auto) 6.6, Eos % (Auto) 3.1, [...] Patient is a 78-year-old female who presented [facility] ED on 12/27/2023 with left hip pain after a fall at home. She got up from the couch toself catheter, got her walker turned and then lost balance and fell on her left hip. 1. Acute debility due to left impacted transcervical femoral neck fracture. ? Admit under inpatient status to [facility]. Orthopedics consulted. N.p.o. at midnight. [...] disposition: TBD Charges/Coding Visit Charges Inpatient E&M: 23640 Subs Hosp L2 12/28/23 1123 <Electronically signed by Sunny Bell MD> Cosigner Signature (if applicable): CC: ~ Signed [facility] Work Phone: 1(714) 456-115404-29-2024 History and physical note Author Nestor Bartlett [facility] December 28, 2023 4:47am Note Date/Time December 27, 2023 11: 30pm [facility] Medical Records Department [address] [place] [address] H&P Exam - Hospitalist 12/27/23 2330 MR#: [id number] Acct: [id number] Name: OLGA DONALDSON Rep #:[id number] : 1945 78 From: Nestor roman DO PCP: Dr. Ramone Smiley MD Status:ADM IN Location: [facility] ZO878-0 HPI - General General Date of Admission: 12/27/23 Date of Service: 12/27/23 Chief Complaint: Left hip fracture HPI Narrative OLGA DONALDSON, is a 78 F who presented to [facility] ED on 12/27/2023 with left hip [...] Patient will be admitted for further management. [facility] Medical History Anemia Anxiety Aortic [...] % (Auto) 51.7, Lymph % (Auto) 37.1, Pondera % (Auto) 6.6, Eos % (Auto) 3.1, [...] Patient is a 78-year-old female who presented [facility] ED on 12/27/2023 with left hip pain after a fall at home. 1. Left femoral neck fracture ? Admit under inpatient status to [facility]. Orthopedics consulted. N.p.o. at midnight. [...] 75 minutes. Charges/Coding Visit Charges Inpatient E&M: 26738 Init Hosp L3 12/28/23 1727 <Electronically signed by Nestor Bartlett DO> Cosigner Signature (if applicable): CC: Dr. Nestor Bartlett DO; Dr. Ramone Smiley MD~ Signed [facility] Work Phone: 1(761) 523-246804-29-2024 Discharge summary Author Queta Cortez [facility] December 28, 2023 2:33am Note Date/Time December 27, 2023 10: 23pm [facility] Medical Records Department [address] [place] [address] Emergency Department Summary 12/27/23 MR#: [id number] Acct: [id number] Name: OLGA DONALDSON Rep #:[id number] : 1945 78 From: Queta Cortez MD PCP: Dr. Ramone Smiley MD Status:ADM IN Location: [place] [address]-1 HPI HPI - Fall History of Present [...] aspirin but no other form of anticoagulant. [facility] Medical History Anemia Anxiety Aortic stenosis [...] mg chewable tablet 81 mg PO DAILY [facility] 01/21/16 [History Last [...] Medical decision making narrative: Patient placed on property assessment monitor. Patient given morphine and Zofran for [...] % (Auto) 51.7 Lymph % (Auto) 37.1 Pondera % (Auto) 6.6 Eos % (Auto) 3.1 [...] seen Dr. Ravi previously prior to his longterm. Dr. Byrd is on-call for [facility] and I will speak with [facility] and need for surgical repair. Discharge Plan Dx/Rx/DC Orders Clinical Impression: Fracture of hip, left, closed Disposition Disposition: Acute Care Hospital [facility] What to do if you have Problems For any increased pain, shortness of breath, bleeding, nausea or vomiting, chestpain, or any unexpected problems, contact your Primary Care Provider. Call [facility] ([phone]) or report to the closest Emergency Room. Call 911 if necessary. 12/28/23 0233 <Electronically signed by Queta Cortez MD> Cosigner Signature (if applicable): CC: Dr. Ramone Smiley MD ~ Signed [facility] Work Phone: 1(585) 741-270912-18-2023 Consult note Author Derrick Hallman [facility] August 17, 2023 11:38am Note Date/Time August 17, 2023 11:38am [facility] Medical Records Department [address] [place] [address] Counseling Note - Pharmacy 08/17/23 1137 MR#: [id number] Acct: [id number] Name: OLGA DONALDSON Rep #:[id number] : 1945 78 From: Derrick Hallman PCP: Dr. Ramone Smiley MD Status:ADM IN Y Location: [place] [address] Pharmacy [facility] Pharmacy Service has performed discharge medication [...] mg chewable tablet 81 mg PO DAILY [facility] 01/21/16 albuterol sulfate 90 mcg/actuation aerosol inhaler [...] Signature (if applicable): Date CC: ~ Signed [facility] Work Phone: 1(253) 361-164712-18-2023 Discharge summary Author Sandeep Denson [facility] August 17, 2023 11:20am Note Date/Time August 17, 2023 11:12am [facility] Medical Records Department [address] [place] [address] Discharge Summary 08/17/23 1111 MR#: [id number] Acct: [id number] Name: OLGA DONALDSON Rep #:[id number] : 1945 78 From: Sandeep Denson MD PCP: Dr. Ramone Smiley MD Status:ADM IN Location: [place] [id number]- [id number] Providers Date of Admission: 08/13/23 Date [...] mg chewable tablet 81 mg PO DAILY [facility] 01/21/16 albuterol sulfate [...] - Requested for PT OT eval and neonatal social worker to assist with discharge planning [...] Document 08/14/23 13:49 AG (Rec: 08/14/23 13:49 [id number]) Nutrition Malnutrition Evidence of Malnutrition Exists Yes [...] Right Blood Culture - Final GNR lactose snuff box finisher 08/13/23 11:10 Blood Culture (Wb) - Anticubital [...] Anne Marie Marshall MD [Med Staff - Commissioner [employer]] - 08/25/23 10:30 am Disposition Disposition (needs filled in before D/C Order can be placed): Home, Self Care Charges/Coding Visit Charges Inpatient E&M: 53013 Disch Hosp >30min 08/17/23 1120 <Electronically signed by Sandeep Denson MD> Cosigner Signature (if applicable): CC: Dr. Sandeep Denson MD; Dr. Ramone Smiley MD~ Signed [facility] Work Phone: 1(671) 892-423812-17-2023 Progress note Author Nestor [facility] August 16, 2023 1:08pm Note Date/Time August 16, 2023 1:08pm [facility] Medical Records Department [address] [place] [address] Progress Note - Hospitalist 08/16/23 1300 MR#: [id number] Acct: [id number] Name: OLGA DONALDSON Rep #:[id number] : 1945 78 From: Nestor roman DO PCP: Dr. Ramone Smiley MD Status:ADM IN Location: [place] [address]- Reason for Visit Reason for Visit: Diagnoses [...] 08/14/23 13:49 AG (Rec: 08/14/23 13:49 AG [id number]) Nutrition Malnutrition Evidence of Malnutrition Exists Yes [...] Right Blood Culture - Final GNR lactose snuff box finisher 08/13/23 11:10 Blood Culture (Wb) - Anticubital [...] is a 78-year-old female who presented to [facility] ED on 08/13/2023 with increasing generalized [...] 35 minutes. Charges/Coding Visit Charges Inpatient E&M: 18553 Subs Hosp L2 08/16/23 1308 <Electronically signed by Nestor Bartlett DO> Cosigner Signature (if applicable): CC: ~ Signed [facility] Work Phone: 1(824) 387-623912-16-2023 Progress note Author Nestor [facility] August 15, 2023 1:28pm Note Date/Time August 15, 2023 1:24pm [facility] Medical Records Department [address] [facility] [place] [address] Progress Note - Hospitalist 08/15/23 1317 MR#: [id number] Acct: [id number] Name: OLGA DONALDSON Rep #:[id number] : 1945 78 From: Nestor roman DO PCP: Dr. Ramone Smiley MD Status:ADM IN Location: [place] [address] Reason for Visit Reason for Visit: Diagnoses [...] 08/14/23 13:49 AG (Rec: 08/14/23 13:49 AG [id number]) Nutrition Malnutrition Evidence of Malnutrition Exists Yes [...] Right Blood Culture - Preliminary GNR lactose snuff box finisher 08/13/23 11:00 Nasal Secretion SARS-CoV-2 & FLU [...] is a 78-year-old female who presented to [facility] ED on 08/13/2023 with increasing generalized [...] cultures preliminarily positive for gram-negative wes lactose snuff box finisher, follow-up speciation and sensitivities. 3. LIA, resolved [...] 35 minutes. Charges/Coding Visit Charges Inpatient E&M: 33161 Subs Hosp L2 08/15/23 1328 <Electronically signed by Nestor Bartlett DO> Cosigner Signature (if applicable): CC: ~ Signed [facility] Work Phone: [phone]) 981-676112-15-2023 Progress note Author Nestor [facility] August 14, 2023 3:08pm Note Date/Time August 14, 2023 2:58pm [facility] Medical Records Department [address] [place] [address] Progress Note - Hospitalist 08/14/23 1454 MR#: [id number] Acct: [id number] Name: OLGA DONALDSON Rep #:[id number] : 1945 78 From: Nestor roman DO PCP: Dr. Ramone Smiley MD Status:ADM IN Location: [place] [address] Reason for Visit Reason for Visit: Diagnoses [...] 08/14/23 13:49 AG (Rec: 08/14/23 13:49 AG [id number]) Nutrition Malnutrition Evidence of Malnutrition Exists Yes [...] (Auto) 79.7 H, Lymph% (Auto) 11.1 L, Pondera % (Auto) 6.1, Eos % (Auto) 0.6, [...] Catheterized Urine Culture - Preliminary GNR lactose snuff box finisher 08/13/23 12:05 Blood Culture (Wb) - Anticubital Right Blood Culture - Preliminary GNR lactose snuff box finisher 08/13/23 11:10 Blood Culture (Wb) - Anticubital Right Blood Culture - Preliminary GNR lactose snuff box finisher 08/13/23 11:00 Nasal Secretion SARS-CoV-2 & FLU [...] is a 78-year-old female who presented to [facility] ED on 08/13/2023 with increasing generalized [...] cultures preliminarily positive for gram-negative wes lactose snuff box finisher, follow-up speciation and sensitivities. 3. LIA, resolved [...] 35 minutes. Charges/Coding Visit Charges Inpatient E&M: 29305 Subs Hosp L2 08/14/23 1508 <Electronically signed by Nestor Bartlett DO> Cosigner Signature (if applicable): CC: ~ Signed [facility] Work Phone: [phone]) 981-859512-14-2023 Discharge summary Author Robert [facility] August 13, 2023 3:29pm Note Date/Time August 13, 2023 10:40am [facility] Medical Records Department [address] [place] [address] Emergency Department Summary 08/13/23 MR#: [id number] Acct: [id number] Name: OLGA DONALDSON Rep #:[id number] : 1945 78 From: Robert Allison DO PCP: Dr. Ramone Smiley MD Status:ADM IN Location: [place] [address] HPI History of Present Illness Chief Complaint: [...] She denies chest pain. She self caths. [facility] Medical History Anemia Anxiety Aortic stenosis [...] mg chewable tablet 81 mg PO DAILY [facility] 01/21/16 [History Last Taken 08/12/23] albuterol sulfate [...] 82.7 H Lymph % (Auto) 9.4 L Pondera % (Auto) 6.1 Eos % (Auto) 0.1 [...] Sl. Cloudy Urine pH 5.0 Ur Specific Lakes[place] 1.015 Urine Protein 30 H Urine Glucose [...] Acute hyponatremia Disposition Disposition: Acute Care Hospital [facility] Discharge Date/Time: 08/13/23 14:54 What to do if you have Problems For any increased pain, shortness of breath, bleeding, nausea or vomiting, chestpain, or any unexpected problems, contact your Primary Care Provider. Call [facility] ([phone]) or report to the closest Emergency Room. Call 911 if necessary. 08/13/23 1529 <Electronically signed by Robert Allison DO> Cosigner Signature (if applicable): CC: Dr. Ramone Smiley MD ~ Signed [facility] Work Phone: [phone]) 887-453712-14-2023 History and physical note Author Heydi Amaya [facility] August 13, 2023 2:47pm Note Date/Time August 13, 2023 2:33pm [facility] Medical Records Department [address] [place] [address] H&P Exam - Hospitalist 08/13/23 1431 MR#: [id number] Acct: [id number] Name: OLGA DONALDSON Rep #:[id number] : 1945 78 From: Heydi Amaya MD PCP: Dr. Ramone Smiely MD Status:ADM IN Location: [place] [address] HPI - General General Date of Admission: 08/13/23 Date of Service: 08/13/23 Chief Complaint: Increasing weakness HPI Narrative OLGA DONALDSON, is [id number] female history of GERD, COPD, hypertension, diabetes, chronic urinary retention with self cathing presented to [facility] 08/13/2023 with increasing generalized weakness and [...] No other acute complaints at this time. [facility] Medical History Anemia Anxiety Aortic [...] (Auto) 82.7 H, Lymph% (Auto) 9.4 L, Pondera % (Auto) 6.1, Eos % (Auto) 0.1, [...] Sl. Cloudy, Urine pH 5.0, Ur Specific [place] 1.015, Urine Protein 30 H, Urine Glucose [...] Amaya MD Charges/Coding Visit Charges Inpatient E&M: 29614 Init Hosp L2 08/13/23 1447 <Electronically signed by Heydi Amaya MD> Cosigner Signature (if applicable): CC: Dr. Ramone Smiley MD; Dr. Heydi Amaya MD~ Signed [facility] Work Phone: [phone]) 772-497205-31-[address] Lockwood [facility] January 28, 2023 4:30pm Note Date/Time January 28, 2023 3:17p m [facility] Medical Records Department [address] [place] [address] Emergency Department Summary 01/28/23 MR#: [id number] Acct: [id number] Name: OLGA DONALDSON Rep #:[id number] : 1945 78 From: Joseph Lockwood MD [...] pain which she has every single day. [facility] Medical History Anemia Anxiety Aortic stenosis [...] unit/mL subcutaneous solution 22 unit SQ BIDCM citiclct64/03/20 [History Last Taken Unknown] insulin detemir U-100 [...] % (Auto) 56.6 Lymph % (Auto) 34.2 Pondera % (Auto) 5.6 Eos % (Auto) 2.6 [...] rhythm with a rate of 86. Normal MS and QTc intervals. No ischemic changes. Interpreted [...] UNIT/ML solution 22 unit SQ BIDCM vitamin F-geixmdpxxelz-oezhyct 500 MG tablet,chewable 250 mg PO DAILY Primary Care Provider: Ramone Smiley Referrals: Ramone Smiley MD [Primary Care Provider] - 3-5 Days Disposition Disposition: Home, Self Care What to do if you have Problems For any increased pain, shortness of breath, bleeding, nausea or vomiting, chestpain, or any unexpected problems, contact your Primary Care Provider. Call [facility] ([phone]) or report to the closest Emergency Room. Call 911 if necessary. 01/28/23 1630 <Electronically signed by Joseph Lockwood MD> Cosigner Signature (if applicable): CC: Dr. Ramone Smiley MD ~ Signed [facility] Work Phone: 1(699) 245-370609-07-2022 NoteHNO ID: [id number] Author: 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 APRN.WILDLIFE REMOVAL SPECIALIST Service: ? Author Type: Nurse Practitioner Type: [...] an every 2-week basis for 4 cycles (CALGB-65940). Completed a year of trastuzumab 06/16/06. Referred back or anemia. Admitted to [facility] 12/02/2019 for chest pain with [...] 1.00 - 4.00 k/uL 2.70 2.30 2.03 Pondera% % 7.0 6.6 6.9 Abs Pondera <0.87 k/uL 0.49 0.47 0.47 Eosin% % [...] loss - ICD9: 280.0, (more content not included)...[facility]09-07-2022 History of Present illness Narrative* 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 APRN.[facility] - 05/07/2022 1:33 PM EDT Chief [...] an every 2-week basis for 4 cycles (CALGB-54990). Completed a year of trastuzumab 06/16/06. Referred back or anemia. Admitted to [facility] 12/02/2019 for chest pain with [...] 1.00 - 4.00 k/uL 2.70 2.30 2.03 Pondera% % 7.0 6.6 6.9 Abs Pondera <0.87 k/uL 0.49 0.47 0.47 Eosin% % [...] visit. 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 APRN.MARLI documented in this encounterUniversity Hospitals Ely[facility] Center06-13-2022 Miscellaneous Notes* Telephone Encounter - Stacie Varner LPN - 02/10/2022 8:33 AM EDT Pt called and notified, pt voices understanding. Stacie Varner LPN * Telephone Encounter - Joseph Rolle DO - 02/10/2022 6:20 AM EDT Can let her know CBC and iron levels doing well. Follow up as scheduled. Joseph Rolle DO documented in this encounterUniversity Hospitals Elyria Medical Center01-31-2022 Miscellaneous Notes* Telephone Encounter - Joseph Rolle [...] filed. Joseph Rolle DO documented in this encounterUniversity Hospitals Elyria Medical Center07-15-2021 Miscellaneous Notes* Telephone Encounter - Marina Mathis [...] drive and will complete lab work and garbage pick up worker stool cards 03/21/2021, same day as iron [...] may have had one more recently at [facility]). Add on for 5 more doses of iron sucrose and repeat CBC/Iron studies about a month after completing. Joseph Rolle DO documented in this encounterUniversity Hospitals Elyria Medical CenterConlt note Author Eboni Chan [facility] December 30, 2023 2:23pm Note Date/Time December 30, 2023 2:24pm [facility] Medical Records Department [address] [place] [address] Counseling Note - Pharmacy 12/30/23 1423 MR#: [id number] Acct: [id number] Name: OLGA DNOALDSON Rep #:[id number] : 1945 78 From: Eboni Chan PCP: Dr. Ramone Smiley MD Status:ADM IN Location: [place] [address] Pharmacy [place] Med Reconciliation Pharmacy Service has performed discharge medication reconciliation for this patient. The patient's discharge medication list was reviewed for discrepancies and discrepancies were resolved. Medications at Discharge Home Medications aspirin 81 mg chewable tablet 81 mg PO DAILY [facility] 01/21/16 albuterol sulfate 90 mcg/actuation aerosol [...] bisacodyl 10 mg rectal suppository 10 mg MS DAILY #0 ea 12/30/23 insulin glargine-yfgn 100 [...] Signature (if applicable): Date CC: ~ Signed [facility] Work Phone: Consult note Author Eboni Chan [facility] Note Date/Time January 24, 2025 2:52p [facility] Medical Records Department [address] [place] [address] Counseling Note - Pharmacy 01/24/25 1451 MR#: [id number] Acct: [id number] Name: OLGA DONALDSON Rep #:[id number] : 1945 80 From: Eboni Chan PCP: Dr. Ramone Smiley MD Status:[facility]M [facility] Counseling Pharmacy Service has performed [...] mg chewable tablet 81 mg PO DAILY [facility] 01/21/16 magnesium oxide [...] Signature (if applicable): Date CC: ~ Signed [facility] Work Phone: Discharge summary Author Sunny Bell [facility] December 30, 2023 2:14pm Note Date/Time December 30, 2023 2:05pm [facility] Medical Records Department [address] [place] [address] Transfer to [facility] MR#: [id number] Acct: [id number] Name: OLGA ODNALDSON Rep #:[id number] : 1945 78 From: Sunyn Blue PCP: Dr. Ramone Smiley MD Status:ADM [...] Patient is a 78-year-old female who presented [facility] ED on 12/27/2023 with left hip pain after a fall at home. She got up from the couch toself catheter, got her walker turned and then lost balance and fell on her left hip. 1. Acute debility due to left impacted transcervical femoral neck fracture. ? Admit under inpatient status to [facility]. Orthopedics consulted. N.p.o. at midnight. [...] cousin over the phone who lives in [place]. Patient is clinically doing well. Currently [...] 0RF bisacodyl 10 mg Suppository 10 mg MS DAILY Qty: 0 0RF insulin glargine-yfgn 100 [...] in before D/C Order can be placed): Group Home Facility 12/30/23 1414 <Electronically signed by Sunny Bell MD> Cosigner Signature (if applicable): CC: Dr. Nestor Bartlett DO; Dr. Ramone Smiley MD; Dr. Gabriel Byrd MD ~ [facility] Work Phone: Discharge summary Author Sunny Bell [facility] December 30, 2023 2:26pm Note Date/Time December 30, 2023 2:21pm [facility] Medical Records Department [address] [place] [address] Discharge Summary 12/30/23 1414 MR#: [id number] Acct: [id number] Name: OLGA DONALDSON Rep #:[id number] : 1945 78 From: Sunny Blue PCP: Dr. Ramone Smiley MD Status:ADM [facility] Date of Admission: 12/27/23 Date of [...] Patient is a 78-year-old female who presented [facility] ED on 12/27/2023 with left hip pain after a fall at home. She got up from the couch toself catheter, got her walker turned and then lost balance and fell on her left hip. 1. Acute debility due to left impacted transcervical femoral neck fracture. ? Admit under inpatient status to [facility]. Orthopedics consulted. N.p.o. at midnight. [...] cousin over the phone who lives in [place]. Patient is clinically doing well. Currently [...] mg chewable tablet 81 mg PO DAILY [facility] 01/21/16 albuterol sulfate 90 mcg/actuation aerosol inhaler [...] bisacodyl 10 mg rectal suppository 10 mg MS DAILY #0 ea 12/30/23 insulin glargine-yfgn 100 [...] % (Auto) 63.9, Lymph % (Auto) 25.3, Pondera % (Auto) 8.7, Eos % (Auto) 1.4, [...] 0RF bisacodyl 10 mg Suppository 10 mg MS DAILY Qty: 0 0RF insulin glargine-yfgn 100 [...] in before D/C Order can be placed): Group Home Facility Charges/Coding Visit Charges Inpatient E&M: 96638 Disch Hosp >30min 12/30/23 1426 <Electronically signed by Sunny Bell MD> Cosigner Signature (if applicable): CC: Dr. Ramone Smiley MD; Dr. Sunny Bell MD; Dr. Gabriel Byrd MD~ Signed [facility] Work Phone: Discharge summary Author Melba [facility] Note Date/Time January 24, 2025 1:27p m [facility] Medical Records Department [address] [place] [address] Instructions for Home/Discharge Instructions 01/24/25 1326 MR#: [id number] Acct: [id number] Name: OLGA DONALDSON Rep #:[id number] : 1945 80 From: Melba Hartmann MD [...] DO; Dr. Marcelina Soto MD ~ Signed [facility] Work Phone: Discharge summary Author [facility] Note Date/Time January 26, 2025 5:10a m [facility] Medical Records Department [address] [place] [address] Emergency Department Summary 01/26/25 MR#: [id number] Acct: [id number] Name: OLGA DONALDSON Rep #:[id number] : 1945 80 From: Jg Bryan DO [...] symptoms and therefore comes in for evaluation [facility] Medical History Fracture of hip, left, [...] mg tablet 25 mg PO BID BLOOD MS ESSURE 08/16/18 01/15/25 History pantoprazole 40 mg [...] cardiac dysrhythmia. Patient was kept on the property assessment monitor and there was no dysrhythmia noted. [...] % (Auto) 65.0 Lymph % (Auto) 25.1 Pondera % (Auto) 6.7 Eos % (Auto) 2.8 [...] the upper limits for size. Reading Location: [facility] Chest x-ray as interpreted by the [...] you have any further concerns Print Language: Trinidadian Disposition Disposition: Home, Self Care What to do if you have Problems For any increased pain, shortness of breath, bleeding, nausea or vomiting, chestpain, or any unexpected problems, contact your Primary Care Provider. Call [facility] ([phone]) or report to the closest Emergency Room. Call 911 if necessary. 01/26/25 0510 <Electronically signed by Jg Bryan DO> Cosigner Signature (if applicable): CC: Dr. Ramone Smiley MD ~ Signed [facility] Work Phone: Discharge summary Author Aj Holley [facility] Note Date/Time February 04, 2025 10:27 am [facility] Medical Records Department [address] [place] [address] Emergency Department Summary 02/04/25 MR#: [id number] Acct: [id number] Name: OLGA DONALDSON Rep #:[id number] : 1945 80 From: Aj Holley MD [...] of the couch, and has no pain. [facility] Medical History Elevated troponin Coronary artery [...] mg tablet 25 mg PO BID BLOOD MS ESSURE 08/16/18 01/15/25 History pantoprazole 40 mg [...] 75.4 H Lymph % (Auto) 15.7 L [place]onder[place] % (Auto) 6.6 Eos % (Auto) 1.7 [...] MD [Primary Care Provider] - Print Language: Trinidadian What to do if you have Problems For any increased pain, shortness of breath, bleeding, nausea or vomiting, chestpain, or any unexpected problems, contact your Primary Care Provider. Call [facility] ([phone]) or report to the closest Emergency Room. [...] 11.8 and 37.9. White count slightly elevated [place] 0.2 thousand. There is slight shift with [...] cc: Dr. Ramone Smiley MD ~* Signed [facility] Work Phone: Evaluation note* Diagnosis Onset Date Resolution Status Multiple thyroid nodules acu te Chronic renal failure, stage 3 (moderate) chronic Hypercalcemia chronic Abscess acute Abscess acute Abscess acute [facility] Work Phone: Evaluation note* Diagnosis Iron deficiency anemia due to chronic blood loss- Primary Iron deficiency anemia secondary to blood loss (chronic) documented in this encounter [facility] note* Diagnosis Onset Date Resolution Status Abscess acute Abscess acute Abscess acute Abscess acute Abscess acute Paronychia of left index finger acute [facility] Work Phone: Evaluation note* Diagnosis Iron deficiency anemia due to chronic blood loss- Primary Iron deficiency anemia secondary to blood loss (chronic) documented in this encounter [facility] note* Diagnosis Anemia, unspecified type- Primary documented in this encounter [facility] note* Diagnosis Iron deficiency anemia due to chronic blood loss- Primary Iron deficiency anemia secondary to blood loss (chronic) documented in this encounter [facility] noteNo assessment information availableWSt. [facility] Work Phone: Evaluation note* Diagnosis Onset Date Resolution Status Gastroenteritis acute [facility] Work Phone: Evaluation note* Diagnosis Onset Date Resolution Status Gastroenteritis acute Falls acute Weakness acute Asthma chronic COPD (chronic obstructive pulmonary disease) chronic GERD (gastroesophageal reflux disease) chronic History of malignant neoplasm of breast chronic Hypertension chronic Neurogenic bladder chronic Type 2 diabetes mellitus chr onic Acute hyponatremia resolved Acute UTI resolved LIA (acute kidney injury) re solved [facility] Work Phone: Evaluation note* Diagnosis Onset Date Resolution Status Fracture of hip, left, closed acute [facility] Work Phone: Evaluation note* Diagnosis Onset Date Resolution Status Falls acute Fracture of hip, left, closed acute Microcytic anemia acute Weakness acute Chronic renal failure, stage 3 (moderate) chronic Hypercalcemia chronic [facility] Work Phone: Evaluation note* Diagnosis Onset Date Resolution Status Gastroenteritis acute Acute hyponatremia acute Acute UTI acute LIA (acute kidney injury) ac j[place] acute Weakness acute Asthma chronic COPD (chronic obstructive pulmonary disease) chronic GERD (gastroesophageal reflux disease) chronic History of malignant neoplasm of breast chronic Hypertension chronic Neurogenic bladder chronic Type 2 diabetes mellitus chr onic [facility] Work Phone: History and physical note Author Heydi Amaya [facility] August 13, 2023 2:47pm Note Date/Time August 13, 2023 2:33pm [facility] Medical Records Department [address] [place] [address] H&P Exam - Hospitalist 08/13/23 1431 MR#: [id number] Acct: [id number] Name: OLGA DONALDSON Rep #:[id number] : 1945 78 From: Heydi Amaya MD PCP: Dr. Ramone Smiley MD Status:[facility] - General General Date of Admission: 08/13/23 Date of Service: 08/13/23 Chief Complaint: Increasing weakness HPI Narrative OLGA DONALDSON, is [id number] female history of GERD, COPD, hypertension, diabetes, chronic urinary retention with self cathing presented to [facility] 08/13/2023 with increasing generalized weakness and [...] No other acute complaints at this time. [facility] Medical History Anemia Anxiety Aortic [...] mg chewable tablet 81 mg PO DAILY [facility] 01/21/16 [History Last Taken 08/12/23] albuterol sulfate [...] (Auto) 82.7 H, Lymph% (Auto) 9.4 L, Pondera % (Auto) 6.1, Eos % (Auto) 0.1, [...] Sl. Cloudy, Urine pH 5.0, Ur Specific [place] 1.015, Urine Protein 30 H, Urine Glucose [...] Amaya MD Charges/Coding Visit Charges Inpatient E&M: 05747 Init Hosp L2 08/13/23 1447 <Electronically signed by Heydi Amaya MD> Cosigner Signature (if applicable): CC: Dr. Ramone Smiley MD; Dr. Heydi Amaya MD~ Signed [facility] Work Phone: History and physical note Author Tono Kitchenak [facility] Note Date/Time February 09, 2025 3:52 pm [facility] Medical Records Department [address] [place] [address] H&P Exam - Hospitalist 02/09/25 1525 MR#: [id number] Acct: [id number] Name: OLGA DONALDSON Rep #:[id number] : 1945 80 From: Tono BHATTI PA [...] tightness, no dizziness or lightheadedness, no palpitations. [facility] Medical History COPD with exacerbation [...] mg tablet 25 mg PO BID BLOOD MS ESSURE 08/16/18 01/15/25 History pantoprazole 40 mg [...] (Auto) 86.9 H, Lymph % (Auto) 7.3L, Pondera % (Auto) 4.5, Eos % (Auto) 0.1, [...] degree of bibasilar linear atelectasis. Reading Location: [place] [address] Assessment & Plan Assessment/Plan (1) COPD exacerbation: [...] DAVY Dykes; Dr. Ramone Smiley MD~ Signed [facility] Work Phone: History and physical note Author Nestor Bartlett [facility] Note Date/Time February 15, 2025 2:57 pm [facility] Medical Records Department [address] [place] [address] H&P Exam - Hospitalist 02/15/25 1401 MR#: [id number] Acct: [id number] Name: OLGA DONALDSON Rep #:[id number] : 1945 80 From: Nestor roman DO PCP: Dr. Ramone Smiley MD Status:ADM JESS Location: [facility] [id number] HPI - General General Date of Admission: 02/15/25 Date of Service: 02/15/25 Chief Complaint: Shortness of breath, acute on chronic debility HPI Narrative OLGA DONALDSON, is a 80 F who presented to [facility] ED on 02/15/2025 with shortness of [...] currently. Will be admitted for further management. [facility] Medical History (Updated 02/15/25 @ [...] mg tablet 25 mg PO BID BLOOD MS ESSURE 08/16/18 01/15/25 History pantoprazole 40 mg [...] 82.5 H, Lymph % (Auto) 10.9 L, Pondera % (Auto) 4.8, Eos % (Auto) 0.7, [...] evidence of acute cardiopulmonary process. [facility] Assessment & Plan Assessment/Plan (1) Generalized weakness: PLAN: Plan Patient is an 80-year-old female who presented [facility] ED on 02/15/2025 with recurrent shortness of breath and acute on chronic debility. 1. Acute on chronic debility ? Admit under observation status to [facility]. PT/OT/case management consulted. Multiple recent hospitalizations [...] 75 minutes. Charges/Coding Visit Charges Inpatient E&M: 34520 Init Hosp L3 02/15/25 6556 <Electronically signed by Nestor Bartlett DO> Cosigner Signature (if applicable): CC: Dr. Nestor Bartlett DO; Dr. Ramone Smiley MD~ Signed [facility] Work Phone: Hospital Discharge instructions Additional Instructions Chest x-ray negative. COVID, flu, RSV negative. Your glucose 321 the lab normal gap. You are given 10 units of short acting insulin. You were started on antibiotics and steroids. Your glucose will be elevated with the steroids. Continue insulin including your sliding scale. Next dose of antibiotics steroids is tomorrow. This was sent to [facility] Work Phone: Hospital Discharge instructions Additional Instructions Take medications as prescribed. Follow-up your doctor in outpatient setting. Return with worsening symptoms or concerns.[facility] Work Phone: Hospital Discharge instructions Additional [...] the ER should you have any further concerns[facility] Work Phone: Hospital Discharge instructions Additional Instructions Continue your steroids and your nebulizer treatments as previously directed. Your chest x-ray did not show pneumonia today. Continue to wear your nasal cannula oxygen.[facility] Work Phone: Hospital Discharge instructionsAdditional Instructions Follow-up with your doctor in outpatient setting. Follow-up and urine culture. Take antibiotic as prescribed sent to your pharmacy. Urinalysis did show evidence of infection. Take MiraLAX twice daily until you are having good bowel movements then you can reduce to once daily. Return with any other concerns or worsening symptomsWSt. [facility] Work Phone: Reason for referral (narrative)No reason for referral information availableWSt. Francis Hospital Work Phone: Summary Purpose Family History [...] Yes December 02, 2021 8:47am Power of Hog Stomach Preparer Yes December 02 8:47am Documents on File Type Date Recorded Patient Senior Principal Expl anation Advance Directive(s) 05/12/2016 10:06 AM Advance Directive(s) 04/30/2016 11:10 AM Advance Directive(s) 02/19/2016 5:55 AM Advance Directive(s) 02/14/2016 3:07 PM Advance Directive Response Recorded Date/ Time Advance Directives Yes December 02 7:47am Living Will Yes July 14, 2 022 2:52pm Power of Hog Stomach Preparer Yes July 14, 2022 2:52pm Name of Medical Power of Hog Stomach Preparer son July 14, 2022 2:52pm Advance Directive Response Recorded Date/ Time Advance Directives Yes December 02 8:47am Living Will Yes July 14, 2 022 3:52pm Power of Hog Stomach Preparer Yes July 14, 2022 3:52pm Advance Directive Response Recorded Date/ Time Name of Medical Power of Hog Stomach Preparer SHANTELLE January 28, 2023 3:11pm Advance Directives Yes December 02 8:47am Living Will Yes January 28, 2023 3 :11pm Power of Hog Stomach Preparer Yes January 28, 2023 3:11pm Advance Directive Response Recorded Date/ Time Name of Medical Power of Hog Stomach Preparer Ursula Donaldson July 18, 2023 11:35pm Advance Directives Yes December 02 7:47am Living Will Yes July 18, 023 11:35pm Power of Hog Stomach Preparer Yes July 18, 2023 11:35pm Advance Directive Response Recorded Date/ Time Name of Medical Power of Hog Stomach Preparer . August 07, 2023 9:45pm Advance Directives Yes December 02 7:47am Living Will No August 13, 023 3:22pm Power of Hog Stomach Preparer No August 13, 2023 3:22pm Name of Medical Power of Hog Stomach Preparer Ursula Donaldson July 18, 2023 11:35pm Advance Directive Response Recorded Date/ Time Advance Directives Yes December 02 8:47am Living Will No August 13, 023 4:22pm Power of Hog Stomach Preparer No August 13, 2023 4:22pm Advance Directive Response Recorded Date/ Time Advance Directives Yes December 02 8:47am Living Will No December 27, 2023 11:02pm Power of Hog Stomach Preparer No December 26 11:02pm Advance Directive Response Recorded Date/ Time Advance Directives Yes December 02 8:47am Living Will No December 28, 2023 12:27am Power of Hog Stomach Preparer No December 27 12:27am Advance Directive Response Recorded Date/ Time Name of Medical Power of Hog Stomach Preparer . August 07, 2023 9:45pm Advance Directives Yes December 02 7:47am Living Will No August 13 023 11:05am Power of Hog Stomach Preparer No August 13, 2023 11:05am Name of Medical Power of Hog Stomach Preparer Ursula Donaldson July 18, 2023 11:35pm Advance Directive Response Recorded Date/ Time Do you have a Healthcare Power of Hog Stomach Preparer? No January 07, 2025 3:00pm Advance Directives Yes December 02 8:47am Advance Directive Response Recorded Date/ Time Do you have a Healthcare Power of Hog Stomach Preparer? No January 15, 2025 2:24pm Do you have a Healthcare Power of Hog Stomach Preparer? No January 07, 2025 3:00pm Advance Directives Yes December 02 8:47am Advance Directive Response Recorded Date/ Time Do you have a Healthcare Power of Hog Stomach Preparer? No January 15, 2025 2:24pm Do you have a Healthcare Power of Hog Stomach Preparer? No January 20, 2025 4:39am Do you have a Healthcare Power of Hog Stomach Preparer? No January 07, 2025 3:00pm Advance Directives Yes December 02 8:47am Advance Directive Response Recorded Date/ Time Do you have a Healthcare Power of Hog Stomach Preparer? No January 15, 2025 2:24pm Do you have a Healthcare Power of Hog Stomach Preparer? No January 20, 2025 4:39am Do you have a Healthcare Power of Hog Stomach Preparer? No January 07, 2025 3:00pm Do you have a Healthcare Power of Hog Stomach Preparer? No January 26, 2025 3:01am Advance Directives Yes December 02 8:47am Advance Directive Response Recorded Date/ Time Do you have a Healthcare Power of Hog Stomach Preparer? No January 15, 2025 2:24pm Do you have a Healthcare Power of Hog Stomach Preparer? No January 20, 2025 4:39am Do you have a Healthcare Power of Hog Stomach Preparer? Yes February 04, 2025 6:32am Name of Medical Power of Hog Stomach Preparer February 04, 2025 6:32am Do you have a Healthcare Power of Hog Stomach Preparer? No January 07, 2025 3:00pm Do you have a Healthcare Power of Hog Stomach Preparer? No January 26, 2025 3:01am Advance Directives Yes December 02 8:47am Advance Directive Response Recorded Date/ Time Do you have a Healthcare Power of Hog Stomach Preparer? No January 15, 2025 2:24pm Do you have a Healthcare Power of Hog Stomach Preparer? No January 20, 2025 4:39am Do you have a Healthcare Power of Hog Stomach Preparer? Yes February 04, 2025 12:35pm Name of Medical Power of Hog Stomach Preparer February 04, 2025 6:32am Do you have a Healthcare Power of Hog Stomach Preparer? No January 07, 2025 3:00pm Do you have a Healthcare Power of Hog Stomach Preparer? No January 26, 2025 3:01am Advance Directives Yes December 02 8:47am Advance Directive Response Recorded Date/ Time Do you have a Healthcare Power of Hog Stomach Preparer? No January 15, 2025 2:24pm Do you have a Healthcare Power of Hog Stomach Preparer? No January 20, 2025 4:39am Do you have a Healthcare Power of Hog Stomach Preparer? Yes February 04, 2025 12:35pm Name of Medical Power of Hog Stomach Preparer February 04, 2025 6:32am Do you have a Healthcare Power of Hog Stomach Preparer? Yes February 09, 2025 12:01pm Name of Medical Power of Hog Stomach Preparer ursula lees jr February 09, 2025 12:01pm Do you have a Healthcare Power of Hog Stomach Preparer? No January 07, 2025 3:00pm Do you have a Healthcare Power of Hog Stomach Preparer? No January 26, 2025 3:01am Advance Directives Yes December 02 8:47am Advance Directive Response Recorded Date/ Time Do you have a Healthcare Power of Hog Stomach Preparer? No January 15, 2025 2:24pm Do you have a Healthcare Power of Hog Stomach Preparer? No January 20, 2025 4:39am Do you have a Healthcare Power of Hog Stomach Preparer? Yes February 04, 2025 12:35pm Name of Medical Power of Hog Stomach Preparer February 04, 2025 6:32am Do you have a Healthcare Power of Hog Stomach Preparer? Yes February 09, 2025 4:43pm Name of Medical Power of Hog Stomach Preparer ursula lees jr February 09, 2025 4:43pm Do you have a Healthcare Power of Hog Stomach Preparer? No January 07, 2025 3:00pm Do you have a Healthcare Power of Hog Stomach Preparer? No January 26, 2025 3:01am Advance Directives Yes December 02 8:47am Advance Directive Response Recorded Date/ Time Do you have a Healthcare Power of Hog Stomach Preparer? No January 15, 2025 2:24pm Do you have a Healthcare Power of Hog Stomach Preparer? No January 20, 2025 4:39am Do you have a Healthcare Power of Hog Stomach Preparer? Yes February 04, 2025 12:35pm Name of Medical Power of Hog Stomach Preparer February 04, 2025 6:32am Do you have a Healthcare Power of Hog Stomach Preparer? Yes February 09, 2025 4:43pm Name of Medical Power of Hog Stomach Preparer ursula lees jr February 09, 2025 4:43pm Do you have a Healthcare Power of Hog Stomach Preparer? Yes February 15, 2025 8:36am Do you have a Healthcare Power of Hog Stomach Preparer? No January 07, 2025 3:00pm Do you have a Healthcare Power of Hog Stomach Preparer? No January 26, 2025 3:01am Advance Directives Yes December 02 8:47am Advance Directive Response Recorded Date/ Time Do you have a Healthcare Power of Hog Stomach Preparer? No January 15, 2025 2:24pm Do you have a Healthcare Power of Hog Stomach Preparer? No January 20, 2025 4:39am Do you have a Healthcare Power of Hog Stomach Preparer? Yes February 04, 2025 12:35pm Name of Medical Power of Hog Stomach Preparer February 04, 2025 6:32am Do you have a Healthcare Power of Hog Stomach Preparer? Yes February 09, 2025 4:43pm Name of Medical Power of Hog Stomach Preparer ursula lees jr February 09, 2025 4:43pm Do you have a Healthcare Power of Hog Stomach Preparer? Yes February 15, 2025 3:20pm Do you have a Healthcare Power of Hog Stomach Preparer? No January 07, 2025 3:00pm Do you have a Healthcare Power of Hog Stomach Preparer? No January 26, 2025 3:01am Advance Directives Yes December 02 8:47am Advance Directive Response Recorded Date/ Time Do you have a Healthcare Power of Hog Stomach Preparer? No January 15, 2025 2:24pm Do you have a Healthcare Power of Hog Stomach Preparer? No January 20, 2025 4:39am Do you have a Healthcare Power of Hog Stomach Preparer? Yes February 04, 2025 12:35pm Name of Medical Power of Hog Stomach Preparer February 04, 2025 6:32am Do you have a Healthcare Power of Hog Stomach Preparer? Yes February 09, 2025 4:43pm Name of Medical Power of Hog Stomach Preparer ursula lees jr February 09, 2025 4:43pm Do you have a Healthcare Power of Hog Stomach Preparer? Yes February 15, 2025 3:20pm Do you have a Healthcare Power of Hog Stomach Preparer? No January 07, 2025 3:00pm Do you have a Healthcare Power of Hog Stomach Preparer? No January 26, 2025 3:01am Do you have a Healthcare Power of Hog Stomach Preparer? Yes February 18, 2025 8:56pm Advance Directives Yes Tianna 4th, 20 22 8:47am Advance Directive Response Recorded Date/ Time Do you have a Healthcare Power of Hog Stomach Preparer? No January 15, 2025 2:24pm Do you have a Healthcare Power of Hog Stomach Preparer? No January 20, 2025 4:39am Do you have a Healthcare Power of Hog Stomach Preparer? Yes February 04, 2025 12:35pm Name of Medical Power of Hog Stomach Preparer February 04, 2025 6:32am Do you have a Healthcare Power of Hog Stomach Preparer? Yes February 09, 2025 4:43pm Name of Medical Power of Hog Stomach Preparer ursula lees February 09, 2025 4:43pm Do you have a Healthcare Power of Hog Stomach Preparer? Yes February 15, 2025 3:20pm Do you have a Healthcare Power of Hog Stomach Preparer? No January 07, 2025 3:00pm Do you have a Healthcare Power of Hog Stomach Preparer? No January 26, 2025 3:01am Do you have a Healthcare Power of Hog Stomach Preparer? Yes February 18, 2025 8:56pm Do you have a Healthcare Power of Hog Stomach Preparer? Yes March 04, 2025 6:52pm Advance Directives Yes December 02 8:47am Advance Directive Response Recorded Date/ Time Do you have a Healthcare Power of Hog Stomach Preparer? No January 15, 2025 2:24pm Do you have a Healthcare Power of Hog Stomach Preparer? No January 20, 2025 4:39am Do you have a Healthcare Power of Hog Stomach Preparer? Yes February 04, 2025 12:35pm Name of Medical Power of Hog Stomach Preparer February 04, 2025 6:32am Do you have a Healthcare Power of Hog Stomach Preparer? Yes February 09, 2025 4:43pm Name of Medical Power of Hog Stomach Preparer ursula lees February 09, 2025 4:43pm Do you have a Healthcare Power of Hog Stomach Preparer? Yes February 15, 2025 3:20pm Do you have a Healthcare Power of Hog Stomach Preparer? No January 07, 2025 3:00pm Do you have a Healthcare Power of Hog Stomach Preparer? No January 26, 2025 3:01am Do you have a Healthcare Power of Hog Stomach Preparer? Yes February 18, 2025 8:56pm Do you have a Healthcare Power of Hog Stomach Preparer? Yes March 04, 2025 6:52pm Do you have a Healthcare Power of Hog Stomach Preparer? No March 21, 2025 1:31pm Advance Directives Yes December 02 8:47am Advance Directive Response Recorded Date/ Time Do you have a Healthcare Power of Hog Stomach Preparer? No January 15, 2025 2:24pm Do you have a Healthcare Power of Hog Stomach Preparer? No January 20, 2025 4:39am Do you have a Healthcare Power of Hog Stomach Preparer? Yes February 04, 2025 12:35pm Name of Medical Power of Hog Stomach Preparer February 04, 2025 6:32am Do you have a Healthcare Power of Hog Stomach Preparer? Yes February 09, 2025 4:43pm Name of Medical Power of Hog Stomach Preparer ursula lees jr February 09, 2025 4:43pm Do you have a Healthcare Power of Hog Stomach Preparer? Yes February 15, 2025 3:20pm Do you have a Healthcare Power of Hog Stomach Preparer? No January 07, 2025 3:00pm Do you have a Healthcare Power of Hog Stomach Preparer? No January 26, 2025 3:01am Do you have a Healthcare Power of Hog Stomach Preparer? Yes February 18, 2025 8:56pm Do you have a Healthcare Power of Hog Stomach Preparer? Yes March 04, 2025 6:52pm Do you have a Healthcare Power of Hog Stomach Preparer? Yes March 22, 2025 12:37am Name of Medical Power of Hog Stomach Preparer ochoa donaldson March 22, 2025 12:37am Advance [...] sob January 26, 2025 3:00a m S/P [facility] 01/24 (PCU) January 31, 2025 1:42p [...] sob January 26, 2025 3:00a m S/P [facility] 01/24 (PCU) January 31, 2025 1:42p [...] sob January 26, 2025 3:00a m S/P [facility] 01/24 (PCU) January 31, 2025 1:42p [...] sob January 26, 2025 3:00a m S/P [facility] 01/24 (U) January 31, 2025 1:42p [...] sob January 26, 2025 3:00a m S/P [facility] 01/24 (PCU) January 31, 2025 1:42p [...] sob January 26, 2025 3:00a m S/P [facility] 01/24 (PCU) January 31, 2025 1:42p [...] sob January 26, 2025 3:00a m S/P [facility] 01/24 (PCU) January 31, 2025 1:42p [...] sob January 26, 2025 3:00a m S/P [facility] 01/24 (PCU) January 31, 2025 1:42p [...] sob January 26, 2025 3:00a m S/P [facility] 01/24 ([facility]) January 31, 2025 1:42p m HYPOXIA, [...] sob January 26, 2025 3:00a m S/P [facility] 01/24 (U) January 31, 2025 1:42p [...] sob January 26, 2025 3:00a m S/P [facility] 01/24 (PCU) January 31, 2025 1:42p [...] sob January 26, 2025 3:00a m S/P [facility] 01/24 (U) January 31, 2025 1:42p [...] sob January 26, 2025 3:00a m S/P [facility] 01/24 ([facility]) January 31, 2025 1:42p m HYPOXIA, [...] section and content) DATE CREATED AUTHOR 02/25/2018 [facility] DATE CREATED AUTHOR AUTHOR'S ORGANIZ ATION 05/08/2022 [facility] DATE CREATED AUTHOR AUTHOR'S ORGANIZ ATION 04/01/2025 [facility] Goals (unrecognized section and content) Goals [...] or prosecute any alcohol or drug abuse patient.[facility] Center[facility] the event this information is protected by the Federal Confidentiality of Alcohol and Drug Abuse Patient Records regulations: The Federal rules restrict any use of the information to criminally investigate or prosecute any alcohol or drug abuse patient.[facility] CenterIn the event this information is protected by the Federal Confidentiality of Alcohol and Drug Abuse Patient Records regulations: The Federal rules restrict any use of the information to criminally investigate or prosecute any alcohol or drug abuse patient.[facility] CenterIn the event this information is protected by the Federal Confidentiality of Alcohol and Drug Abuse Patient Records regulations: The Federal rules restrict any use of the information to criminally investigate or prosecute any alcohol or drug abuse patient.[facility] CenterIn the event this information is protected by the Federal Confidentiality of Alcohol and Drug Abuse Patient Records regulations: The Federal rules restrict any use of the information to criminally investigate or prosecute any alcohol or drug abuse patient.[facility] Care Teams (unrecognized sec tion and content) [...] Active Start: January 24, 2025 Dr. Sandeep Calrton , Admit Provider Active Start: January 24, [...] January 26, 2025 End: January 26, 2025 Sleeping Room Cleaner Relationship Specialty Start Date End Date Ramone Smiley MD PCP - General Family Practice 08/16/15 Sleeping Room Cleaner Relationship Specialty Start Date End Date Ramone Smiley MD PCP - General Family Practice 08/16/15 Sleeping Room Cleaner Relationship Specialty Start Date End Date Ramone Smiley MD PCP - General Family Practice 08/16/15 Sleeping Room Cleaner Relationship Specialty Start Date End Date Ramone Smiley MD PCP - General Family Practice 08/16/15 Sleeping Room Cleaner Relationship Specialty Start Date End Date Ramone [...] Ramone Smiley MD Primary Care Provider, Attending [facility] Active Team Status: Active Member Role [...] End: January 31, 2025 Whitney Cao NP, GMAT TUTOR-C Attending Provider Active Start: January 31, 2025 [...] Active S tart: February 10, 2025 Dr. Luico Borden DO Admit Provider Active S tart: [...] 15, 2025 End: January 15, 2025 Dr. Jeeavn Yoder DO Attending Provider Active Start: January [...] Active Member Role/Relationship Status Dates Dr. Ramone Simley MD Primary Care Provider Active Start: January [...] 2025 End: January 31, 2025 Whitney Cao GMAT TUTOR, GMAT TUTOR-C Attending Provider Active Start: January 31, 2025 [...] Active Start: March 07, 2025 Whitney Cao GMAT TUTOR, GMAT TUTOR-C Attending Provider Active Start: March 07, 2025 Whitney Cao GMAT TUTOR, GMAT TUTOR-C Referring Provider Active Start: March 07, 2025 [...] 2025 End: March 07, 2025 Whitney Cao GMAT TUTOR, GMAT TUTOR-C Attending Provider Active Start: March 07, 2025 End: March 07, 2025 Whitney Cao GMAT TUTOR, GMAT TUTOR-C Referring Provider Active Start: March 07, 2025 End: March 07, 2025 Team Status: Active Member Role/Relationship Status Dates Dr. Ramone Smiley MD Primary Care Provider Active Start: March 07, 2025 Whitney Cao GMAT TUTOR, GMAT TUTOR-C Referring Provider Active Start: March 07, 2025 Whitney Cao GMAT TUTOR, GMAT TUTOR-C Other Provider Active Sta rt: March 07, 2025 Dr. Se Good MD Attending Provider Active S tart: March 07, 2025 Team Status: Active Member Role/Relationship Status Dates Dr. Ramone Smiley MD Primary Care Provider Active Start: March 09, 2025 Whitney Cao GMAT TUTOR, GMAT TUTOR-C Attending Provider Active Start: March 09, 2025 [...] 2025 End: January 15, 2025 Dr. Jeevan Yodre DO Emergency Provider Active Start: January 15, [...] 2025 End: January 31, 2025 Whitney Cao GMAT TUTOR, GMAT TUTOR-C Attending Provider Active Start: January 31, 2025 [...] Active Start: February 06, 2025 Dr. Lucio Broden DO Admit Provider Active S tart: February [...] BE BASED ON THE PRIMARY CLINICAL RECORDS. [employer] [facility]. provides no warranty or guarantee of the accuracy or completeness of information in this document.
--- OUTSIDE RECORDS SUMMARY | 2025-04-02 04:37 | XMS RPT_ITS | CCD ---
Author Organization [facility] Care Team Providers Care Track Vehicle Repairer Name Role Phone Zuleika Heaton Unavailable Unavailable LEE ALAMO Unavailable Unavailable PROVIDER, UNKNOWN Unavailable Unavailable Zuleika Heaton Unavailable Unavailable Dr. Ramone Smiley Primary Care Provider Dr. Ramone Smiley Referring Provider Dr. Michael Carmen Attending Provider [phone] Juan Carlos JEAN, MIRANDA-Marianna Bullock Attending Provider Dr. Angela Moncada Attending Provider Baljit LEARY, Ramone Noe Primary Care Provider [phone] Dr. Ramone Smiley Primary Care Provider [phone] Ramone Smiley Referring Provider DAVY Blackmon Attending Provider Ramone Smiley MD Primary Care Provider Dr. Ramone Smiley Primary Care Provider Dr. Ramone Smiley Referring Provider DAVY Peck Attending Provider [phone] Dr. Robert Allison Emergency Provider Dr. Heydi [...] LEARY, Dr. Melba Gayle Other Provider [phone] Herrera LEARY, Dr. Hudson Attending Provider Baljit LEARY, Dr. Pack Primary Care Provider Baljit LEARY, Dr. Pack Attending Provider Baljit LEARY, Dr. Pack Referring Provider Irvin RAYMUNDO, Dr. Gregorio Emergency Provider Irvin RAYMUNDO, Dr. Gregorio Attending Provider Nash FLATTENING MACHINE OPERATOR-C, Whitney Attending Provider Leydi LEARY, Dr. Rocha Emergency Provider Michi RAYMUNDO, Dr. Valdes Admit Provider Michi RAYMUNDO, Dr. Valdes Attending Provider Herrera LEARY, Dr. Hudson Attending Provider Antoni LEARY, Dr. Daniels Emergency Provider Tono Carbajal Attending Provider Keegan RAYMUNDO, Dr. Jones Emergency Provider Dhruv RAYMUNDO, Dr. Baez Admit Provider Dr. Nestor Bartltet DO Attending Provider Dhruv RAYMUNDO, Dr. Baez [...] Abigail Awad Attending Provider Silvio LEARY, Dr. Baryr Attending Provider Kristin LEARY, Dr. Abigail Awad Other Provider Smiley, Ramone Primary Care Unavailable Lucio Borden Admitting Unavailable TerLucio doherty Consulting Unavailable Lucio Borden Attending Unavailable Nash FLATTENING MACHINE OPERATOR, Whitney Attending Unavailable Nash FLATTENING MACHINE OPERATOR, Whitney Referring Unavailable Smiley, Ramone Primary Care Unavailable Smiley, Ramone Referring Unavailable Smiley, Ramone Primary Care Unavailable Nash FLATTENING MACHINE OPERATOR, Whitney Attending Unavailable Abigail Foster Admitting Unavailable [...] Care Unavailable Ethan Suarez Attending Unavailable Smiley, Rmaone Primary Care Unavailable Jeevan Yoder Attending Unavailable [...] Unavailable Smiley, Ramone Primary Care Unavailable Nash FLATTENING MACHINE OPERATOR, Whitney Consulting Unavailable Nash FLATTENING MACHINE OPERATOR, Whitney Referring Unavailable Se Good Attending Unavailable Smiley, Ramone Primary Care Unavailable Nash JEAN, Whitney Attending Unavailable Smiley, Ramone Primary Care Unavailable Sandeep Carlton Attending Unavailable Becca Silverman Attending Unavailable Allergies Allergy Classification Reported Allergen(s) Allergy Type Date of Onset Reaction(s) Facility (20 sources) Adhesive Tape; Translations: [ADHESIVE TAPE] allergy to substance 5 NEEDS FOLLOW-UP [facility] Work Phone: Comment on above: CLOTH TAPE (20 sources) amoxicillin; Translations: [amoxicillin] drug allergy 5 yeast infection [facility] Work Phone: (2 sources) cephalexin drug allergy 5 [facility] Work Phone: (2 sources) clopidogrel drug allergy 5 [facility] Work Phone: (20 sources) Cephalexin; Translations: [cephalexin monohydrate] Drug Allergy 2 [facility] (20 sources) clopidogrel; Translations: [clopidogrel bisulfate] Drug Allergy 1 Hives [facility] Work Phone: (2 sources) cloth tap Allergy to substance 2 Other [facility] Work Phone: (5 sources) Cephalexin Drug Allergy 5 [facility] Work Phone: (5 sources) tape [Other] Propensity to adverse reactions 5 [facility] (1 source) oxyCODONE Drug Allergy 5 [facility] (1 source) oxyCODONE Drug Allergy 5 [facility] Repository Medications Current Medications Medication Drug Class(es) [...] 19, 2018 1:00am October 26, 2018 1:09am [id number] 200 actuat albuter ol 0.09 mg/actuat metered [...] AERS As needed - 90mcg/inh ALBUTEROL SULFATE [id number] Se Good MD Start: 08-29-2015 VENTOLIN HFA 1 08 (90 Base) MCG/ACT AERS As needed - 90mcg/inh ALBUTEROL SULFATE [id number] Se Good MD Start: 12-25-2014 End: 01-12-2018 [...] TABS One tablet by mouth daily ASPIRIN [id number] Kadie Álvarez RN Start: 08-23-2015 take 1 tablet by martin th once daily ASPIRIN 81 MG TABS One tablet by mouth daily ASPIRIN 65873601694 Kadie Álvarez RN take 1 tablet by [...] in each nostril twice daily AZELASTINE HCL [id number] Kadie Álvarez RN Start: 08-23-2015 take 1-2 spray(s) na deepali route twice daily ASTEPRO 0.15 % SOLN 1-2 sprays in each nostril twice daily AZELASTINE HCL [id number] Kadie Álvarez RN take 1-2 spray(s) na [...] MCG/ACT AERO 2 puffs daily BUDESONIDE-FORMOTEROL FUMARATE [id number] Kadie Álvarez RN Start: 08-23-2015 SYMBICORT 160- 4.5 MCG/ACT AERO 2 puffs daily BUDESONIDE-FORMOTEROL FUMARATE [id number] Kadie Álvarez RN take 1 puff(s) by in halation twice daily budesonide-formoterol (SYMBICORT) 160-4.5 mcg/actuation inhaler Indications: Other iron deficiency anemia Inhale 1 Puff as instructed twice daily. 0 Active Comment on above: Inhale 1 Puff as ins tructed twice daily. Zkgjrfqeke-Rnqhymhv-Yfhvnztj ol (19 sources) Corticosteroid, beta2-Adrenergic Agonist Start: [...] POWD 3 times daily with water PSYLLIUM [id number] Kadie Álvarez RN Roflumilast (20 sources) Phosphodiesterase [...] EVERY WEEK January 15, 2025 12:00am Vitamin F-Chnenbezcldu-Xqgx ral (15 sources) Start: 12-02-2019 take 250 mg by mouth once daily Vitamin O-Rlmlkohqarqp-Uoo eral Active 250 MG PO DAILY December 02, 2019 11:46am Start: 12-02-2019 End: 07-18-2023 take 250 mg by mouth once daily Vitamin C-Iaregtnojjvb-Zzzfjvk Discontinued 250 MG PO DAILY December 02, 2019 12:00am July 19, 2023 12:34am Start: 12-02-2019 End: 07-18-2023 take 250 mg by mouth once daily Vitamin S-Jnxcjykendfq-Zkphepn Discontinued 250 MG PO DAILY December 01, 2019 11:00pm July 18, 2023 11:34pm Start: 12-02-2019 take 250 mg by mouth once daily Vitamin O-Ufotmmfjbasy-Fcuwgrk Active 25 0 MG PO DAILY December 01, 2019 11:00pm Start: 12-02-2019 take 250 mg by mouth once daily Vitamin O-Vvfdqhuectny-Igwvdiw Active 25 0 MG PO DAILY December [...] One tablet by mouth daily AMLODIPINE BESYLATE [id number] Se Good MD apixaban 5 mg oral [...] lower legs 1-2 times daily BETAMETHASONE DIPROPIONATE 97797460506 Kadie Álvarez RN Start: 08-23-2015 BETAMETHASONE DIPROPIONATE 0.05 % LOTN apply to lower legs 1-2 times daily BETAMETHASONE DIPROPIONATE 02200657934 Kadie Álvarez RN bisacodyl 10 mg rectal suppo sitory (20 sources) Stimulant Laxative Start: 12-30-2023 End: 01-15-2024 Start: 08-23-2015 take 1 tablet by martin th once daily as needed BISACODYL EC 5 MG TBEC One tablet by mouth daily as needed BISACODYL 28689052779 Kadie Álvarez RN calcium carbonate (2 sources) Start: 08-23-2015 take 1 tablet by mouth once daily CALCIUM 600 600 MG TABS One tablet by mouth daily CALCIUM CARBONATE 73445398362 Kadie Álvarez RN Calcium Carbonate / vitamin D3 (5 sources) take 1 tablet by mouth once daily CALCIUM CARBONATE/VITAMIN D3 (CALCIUM 600 + D,3, ORAL) Indications: Other iron deficiency anemia Take 1 tablet by mouth once daily. 0 Active Comment on above: Take [address] [facility] once daily. chlorpheniramine maleate 4 mg oral tablet (2 sources) Histamine-1 Receptor Antagonist Start: 08-29-2015 CHLORPHENIRAMINE MALEATE 4 MG TABS As needed CHLORPHENIRAMINE MALEATE 64362655662 Se Good MD cholecalciferol 0.025 mg oral [...] by mouth daily COD LIVER OIL CAPS [id number] Kadie Álvarez RN take 1 capsule by mouth once neftaly ly Cod Liver Oil cap Indications: Other iron deficiency anemia Take 1 capsule by mouth once daily. 0 Active Comment on above: Take 1 capsule by [facility] once daily. Cod Liver Oil capsule (4 [...] Start: 01-07-2025 take 1 capsule by mo [facility] every twenty-four hours Diltiazem Hcl 180 mg capsule,ext.rel 24h degradable Active mg PO January 07, 2025 12:00am Start: 08-16-2018 End: 01-07-2025 Start: 08-29-2015 take 1 tablet by martin th once daily DILT-XR 180 MG [id number] One tablet by mouth daily DILTIAZEM HCL 90921725636 Se Good MD Start: 08-29-2015 take 1 tablet by martin th once daily DILT-XR 180 MG [id number] One tablet by mouth daily DILTIAZEM HCL 90081596845 Se Good MD Comment on above: Take 180 mg by mouth once daily. docusate sodium 50 mg / sennosides, [facility] 8.6 mg oral tablet (20 sources) Start: [...] units SQ daily at bedtime INSULIN DETEMIR [id number] Mariana Finley RN Start: 08-23-2015 inject 28 [IU] by avila bcutaneous injection once daily LEVEMIR 100 UNIT/ML SOLN 28 units SQ daily INSULIN DETEMIR [id number] Kadie Álvarez RN Start: 08-23-2015 take 15 [IU] by subc utaneous injection once daily at bedtime LEVEMIR 100 UNIT/ML SOLN 15 units SQ daily at bedtime INSULIN DETEMIR [id number] Mariana Finley RN Start: 08-23-2015 take 28 [IU] by subc utaneous injection once daily LEVEMIR 100 UNIT/ML SOLN 28 units SQ daily INSULIN DETEMIR 73180249969 Kadie Álvarez RN inject 52 [IU] by [...] CAPS One tablet by mouth daily LINACLOTIDE 50276546021 Kadie Álvarez RN Start: 08-23-2015 take 1 tablet by martin th once daily LINZESS 290 MCG CAPS One tablet by mouth daily LINACLOTIDE 19142579658 Kadie Álvarez RN lisinopril 40 mg oral [...] One tablet by mouth daily MAGNESIUM CAPS 20153935699 Kadie Álvarez RN metFORMIN hydrochloride 1000 mg oral tablet (2 sources) Biguanide take 1 tablet by mouth twice daily GLUCOPHAGE 1000 MG TABS One tablet by mouth twice daily METFORMIN HCL 89636451437 Julita Chau NP metFORMIN hydrochloride 1000 mg / SITagliptin 50 mg oral tablet (4 sources) Biguanide, Dipeptidyl Peptidase 4 Inhibitor Start: 5 End: 5 take 1 tablet by mouth twice daily JANUMET 50-1000 MG TABS One tablet by mouth twice daily SITAGLIPTIN-METFORMI N HCL 81944738777 Se Good MD Start: 08-23-2015 End: 08-29-2015 take 1 tablet by mouth twice daily JANUMET 50-1000 MG TABS One tablet by mouth twice daily SITAGLIPTIN-METFORMIN HCL 92869723022 Se Good MD Start: 08-23-2015 take 1 tablet by martin th twice daily JANUMET 50-1000 MG TABS One tablet by mouth twice daily SITAGLIPTIN-METFORMIN HCL 70184140561 Kadie Álvarez RN miSOPROStol 0.2 mg oral [...] three times daily as needed PROMETHAZINE HCL 73500281685 Kadie Álvarez RN PSYLLIUM HUSK, BULK, MISC [...] One tablet by mouth daily RANITIDINE HCL 83751986533 Kadie Álvarez RN Comment on above: Take 300 mg by mouth once daily. sennosides, [facility] 8.6 mg oral tablet (5 sources) take 1 tablet by mouth twice daily senna (SENNA LAXATIVE) 8.6 mg tab Take 8.6 mg by mouth twice daily. 0 Active Comment on above: Take 8.6 mg by mouth twice daily. sodium chloride 0.111 meq/ml nasal spray (5 sources) sodium chloride (SALINE MIST) 0.65 % nasal spray Use 1 [place] in the nose as needed. 0 Active Comment on above: Use 1 [place] in the n ose as needed. sucralfate [...] End: 10-18-2020 Start: 01-24-2020 End: 10-18-2020 Tiotropium [place] (Spiriva With Handihaler) 18 mcg capsule, w/inhalation device Discontinued 1 NMA INHALATION NEEDED as needed for Sob &/Or Wheezing January 24, 2020 12:00am October 18, 2020 9:28am puncture 1 cap using device; one dose = 2 inhalations Start: 01-24-2020 End: 10-18-2020 Tiotropium [place] (Spiriva With Handihaler) 18 mcg capsule, w/inhalation device Discontinued 1 PUFF INHALATION NEEDED January 24, 2020 12:00am October 18, 2020 9:28am puncture 1 cap using device; one dose = 2 inhalations Start: 08-23-2015 SPIRIVA HANDIH ALER 18 MCG CAPS as needed TIOTROPIUM BROMIDE MONOHYDRATE 48111823876 Kadie Álvarez RN Start: 08-23-2015 SPIRIVA HANDIH ALER 18 MCG CAPS as needed TIOTROPIUM BROMIDE MONOHYDRATE 83996633970 Kadie Álvarez RN Start: 12-25-2014 End: 01-12-2018 [...] sources) Corticosteroid Start: 01-07-2025 End: 01-15-2025 Vitamin A-Bmjwquzfqkal-Nrfomdp 500 MG tablet,chewable (2 sources) Start: 12-02-2019 End: 07-18-2023 Vitamin A-Wyixopxtlrnp-Rxrvcdv 500 MG tablet,chewable Discontinued 250 mg PO [...] Coronary arteriosclerosis; Translations: [Atherosclerotic heart disease of [place] coronary artery without angina pectoris] Onset: 5 [...] Respiratory failure; insufficiency; arrest (adult) (20 sources) Lniqn-uq-ldipngj respiratory failure; Translations: [Acute respiratory failure with [...] Profile (BMP )on 03-30-2025 BUN Normal 4-19 [facility] Comment on above: Result Comment: Canc elled via OM: Order cancelled - Patient discharged Performed By: #### L 100.0100, L500.2500 ####[facility] [address] [place], [address] BUN/CRE Normal 10-20 [facility] Comment on above: Result Comment: Canc elled via OM: Order cancelled - Patient discharged Performed By: #### L 100.0100, L500.2500 ####[facility] [address] [place], [address] Calcium Normal 7.6-11.0 [facility] Comment on above: Result Comment: Canc elled via OM: Order cancelled - Patient discharged Performed By: #### L 100.0100, L500.2500 ####[facility] [address] [place], [address] CL Normal 98-108 [facility] Comment on above: Result Comment: Canc elled via OM: Order cancelled - Patient discharged Performed By: #### L 100.0100, L500.2500 ####[facility] [address] [place], [address] CO2 Normal 21.0-32.0 [facility] Comment on above: Result Comment: Canc elled via OM: Order cancelled - Patient discharged Performed By: #### L 100.0100, L500.2500 ####[facility] [address] [place], [address] CREAT,SERUM Normal 0.70-1.20 [facility] Comment on above: Result Comment: Canc elled via OM: Order cancelled - Patient discharged Performed By: #### L 100.0100, L500.2500 ####[facility] [address] [place], [address] eGFR Normal >60 [facility] Comment on above: Result Comment: Canc elled via OM: Order cancelled - Patient discharged Performed By: #### L 100.0100, L500.2500 ####[facility] [address] [place], [address] GAP Normal 5-15 [facility] Comment on above: Result Comment: Canc elled via OM: Order cancelled - Patient discharged Performed By: #### L 100.0100, L500.2500 ####[facility] [address] [place], [address] GLU Normal 70-99 [facility] Comment on above: Result Comment: Canc elled via OM: Order cancelled - Patient discharged Performed By: #### L 100.0100, L500.2500 ####[facility] [address] [place], [address] Potassium Normal 3.3-5.1 [facility] Comment on above: Result Comment: Canc elled via OM: Order cancelled - Patient discharged Performed By: #### L 100.0100, L500.2500 ####[facility] [address] [place], [address] Basic Metabolic Profile (BMP) Normal 133-145 [facility] Comment on above: Result Comment: Canc elled via OM: Order cancelled - Patient discharged Performed By: #### L 100.0100, L500.2500 ####[facility] [address] [place], [address] CBC W/Diff, Automatedon 07-3 Absolute Neut Normal 2.0-7.7 [facility] Comment on above: Result Comment: Canc elled via OM: Order cancelled - Patient discharged Performed By: #### L 100.0100, L500.2500 ####[facility] [address] [place], [address] HCT Normal 37-47 [facility] Comment on above: Result Comment: Canc elled via OM: Order cancelled - Patient discharged Performed By: #### L 100.0100, L500.2500 ####[facility] [address] [place], [address] HGB Normal 12.0-15.0 [facility] Comment on above: Result Comment: Canc elled via OM: Order cancelled - Patient discharged Performed By: #### L 100.0100, L500.2500 ####[facility] [address] [place], [address] MCH Normal 27.0-32.0 [facility] Comment on above: Result Comment: Canc elled via OM: Order cancelled - Patient discharged Performed By: #### L 100.0100, L500.2500 ####[facility] [address] [place], [address] MCHC Normal 32-36 [facility] Comment on above: Result Comment: Canc elled via OM: Order cancelled - Patient discharged Performed By: #### L 100.0100, L500.2500 ####[facility] [address] [place], [address] MCV Normal 81-99 [facility] Comment on above: Result Comment: Canc elled via OM: Order cancelled - Patient discharged Performed By: #### L 100.0100, L500.2500 ####[facility] [address] [place], [address] NEUT% Normal 47-70 [facility] Comment on above: Result Comment: Canc elled via OM: Order cancelled - Patient discharged Performed By: #### L 100.0100, L500.2500 ####[facility] [address] [place], [address] PLT Normal 150-450 [facility] Comment on above: Result Comment: Canc elled via OM: Order cancelled - Patient discharged Performed By: #### L 100.0100, L500.2500 ####[facility] [address] [place], [address] RBC Normal 4.2-5.4 [facility] Comment on above: Result Comment: Canc elled via OM: Order cancelled - Patient discharged Performed By: #### L 100.0100, L500.2500 ####[facility] [address] [place], [address] RDW CV Normal 11.6-14.6 [facility] Comment on above: Result Comment: Canc elled via OM: Order cancelled - Patient discharged Performed By: #### L 100.0100, L500.2500 ####[facility] [address] [place], [address] RDW SD Normal 35.1-43.9 [facility] Comment on above: Result Comment: Canc elled via OM: Order cancelled - Patient discharged Performed By: #### L 100.0100, L500.2500 ####[facility] [address] [place], [address] WBC Normal 4.4-11.0 [facility] Comment on above: Result Comment: Canc elled via OM: Order cancelled - Patient discharged Performed By: #### L 100.0100, L500.2500 ####[facility] [address] [place], [address] Basic Metabolic Profile (BMP )on 03-29-2025 BUN Normal 4-19 [facility] Comment on above: Result Comment: Canc elled via OM: Order cancelled - Patient discharged Performed By: #### L 500.2500, L100.0100 ####[facility] [address] [place], [address] BUN/CRE Normal 10-20 [facility] Comment on above: Result Comment: Canc elled via OM: Order cancelled - Patient discharged Performed By: #### L 500.2500, L100.0100 ####[facility] [address] [place], [address] Calcium Normal 7.6-11.0 [facility] Comment on above: Result Comment: Canc elled via OM: Order cancelled - Patient discharged Performed By: #### L 500.2500, L100.0100 ####[facility] [address] [place], [address] CL Normal 98-108 [facility] Comment on above: Result Comment: Canc elled via OM: Order cancelled - Patient discharged Performed By: #### L 500.2500, L100.0100 ####[facility] [address] [place], [address] CO2 Normal 21.0-32.0 [facility] Comment on above: Result Comment: Canc elled via OM: Order cancelled - Patient discharged Performed By: #### L 500.2500, L100.0100 ####[facility] [address] [place], [address] CREAT,SERUM Normal 0.70-1.20 [facility] Comment on above: Result Comment: Canc elled via OM: Order cancelled - Patient discharged Performed By: #### L 500.2500, L100.0100 ####[facility] [address] [place], [address] eGFR Normal >60 [facility] Comment on above: Result Comment: Canc elled via OM: Order cancelled - Patient discharged Performed By: #### L 500.2500, L100.0100 ####[facility] [address] [place], [address] GAP Normal 5-15 [facility] Comment on above: Result Comment: Canc elled via OM: Order cancelled - Patient discharged Performed By: #### L 500.2500, L100.0100 ####[facility] [address] [place], [address] GLU Normal 70-99 [facility] Comment on above: Result Comment: Canc elled via OM: Order cancelled - Patient discharged Performed By: #### L 500.2500, L100.0100 ####[facility] [address] [place], [address] Potassium Normal 3.3-5.1 [facility] Comment on above: Result Comment: Canc elled via OM: Order cancelled - Patient discharged Performed By: #### L 500.2500, L100.0100 ####[facility] [address] [place], [address] Basic Metabolic Profile (BMP) Normal 133-145 [facility] Comment on above: Result Comment: Canc elled via OM: Order cancelled - Patient discharged Performed By: #### L 500.2500, L100.0100 ####[facility] [address] [place], [address] CBC W/Diff, Automatedon 07-3 0-2024 Absolute Neut Normal 2.0-7.7 [facility] Comment on above: Result Comment: Canc elled via OM: Order cancelled - Patient discharged Performed By: #### L 500.2500, L100.0100 ####[facility] [address] [place], [address] HCT Normal 37-47 [facility] Comment on above: Result Comment: Canc elled via OM: Order cancelled - Patient discharged Performed By: #### L 500.2500, L100.0100 ####[facility] [address] [place], [address] HGB Normal 12.0-15.0 [facility] Comment on above: Result Comment: Canc elled via OM: Order cancelled - Patient discharged Performed By: #### L 500.2500, L100.0100 ####[facility] [address] [place], [address] MCH Normal 27.0-32.0 [facility] Comment on above: Result Comment: Canc elled via OM: Order cancelled - Patient discharged Performed By: #### L 500.2500, L100.0100 ####[facility] [address] [place], [address] MCHC Normal 32-36 [facility] Comment on above: Result Comment: Canc elled via OM: Order cancelled - Patient discharged Performed By: #### L 500.2500, L100.0100 ####[facility] [address] [place], [address] MCV Normal 81-99 [facility] Comment on above: Result Comment: Canc elled via OM: Order cancelled - Patient discharged Performed By: #### L 500.2500, L100.0100 ####[facility] [address] [place], [address] NEUT% Normal 47-70 [facility] Comment on above: Result Comment: Canc elled via OM: Order cancelled - Patient discharged Performed By: #### L 500.2500, L100.0100 ####[facility] [address] [place], [address] PLT Normal 150-450 [facility] Comment on above: Result Comment: Canc elled via OM: Order cancelled - Patient discharged Performed By: #### L 500.2500, L100.0100 ####[facility] [address] [place], [address] RBC Normal 4.2-5.4 [facility] Comment on above: Result Comment: Canc elled via OM: Order cancelled - Patient discharged Performed By: #### L 500.2500, L100.0100 ####[facility] [address] [place], [address] RDW CV Normal 11.6-14.6 [facility] Comment on above: Result Comment: Canc elled via OM: Order cancelled - Patient discharged Performed By: #### L 500.2500, L100.0100 ####[facility] [address] [place], [address] RDW SD Normal 35.1-43.9 [facility] Comment on above: Result Comment: Canc elled via OM: Order cancelled - Patient discharged Performed By: #### L 500.2500, L100.0100 ####[facility] [address] [place], [address] WBC Normal 4.4-11.0 [facility] Comment on above: Result Comment: Canc elled via OM: Order cancelled - Patient discharged Performed By: #### L 500.2500, L100.0100 ####[facility] [address] [place], [address] Basic Metabolic Profile (BMP )on 03-28-2025 BUN Normal 4-19 [facility] Comment on above: Result Comment: Canc elled via OM: Order cancelled - Patient discharged Performed By: #### L 100.0100, L500.2500 ####[facility] [address] [place], [address] BUN/CRE Normal 10-20 [facility] Comment on above: Result Comment: Canc elled via OM: Order cancelled - Patient discharged Performed By: #### L 100.0100, L500.2500 ####[facility] [address] [place], [address] Calcium Normal 7.6-11.0 [facility] Comment on above: Result Comment: Canc elled via OM: Order cancelled - Patient discharged Performed By: #### L 100.0100, L500.2500 ####[facility] [address] [place], [address] CL Normal 98-108 [facility] Comment on above: Result Comment: Canc elled via OM: Order cancelled - Patient discharged Performed By: #### L 100.0100, L500.2500 ####[facility] [address] [place], [address] CO2 Normal 21.0-32.0 [facility] Comment on above: Result Comment: Canc elled via OM: Order cancelled - Patient discharged Performed By: #### L 100.0100, L500.2500 ####[facility] [address] [place], [address] CREAT,SERUM Normal 0.70-1.20 [facility] Comment on above: Result Comment: Canc elled via OM: Order cancelled - Patient discharged Performed By: #### L 100.0100, L500.2500 ####[facility] [address] [place], [address] eGFR Normal >60 [facility] Comment on above: Result Comment: Canc elled via OM: Order cancelled - Patient discharged Performed By: #### L 100.0100, L500.2500 ####[facility] [address] [place], [address] GAP Normal 5-15 [facility] Comment on above: Result Comment: Canc elled via OM: Order cancelled - Patient discharged Performed By: #### L 100.0100, L500.2500 ####[facility] [address] [place], [address] GLU Normal 70-99 [facility] Comment on above: Result Comment: Canc elled via OM: Order cancelled - Patient discharged Performed By: #### L 100.0100, L500.2500 ####[facility] [address] [place], [address] Potassium Normal 3.3-5.1 [facility] Comment on above: Result Comment: Canc elled via OM: Order cancelled - Patient discharged Performed By: #### L 100.0100, L500.2500 ####[facility] [address] [place], [address] Basic Metabolic Profile (BMP) Normal 133-145 [facility] Comment on above: Result Comment: Canc elled via OM: Order cancelled - Patient discharged Performed By: #### L 100.0100, L500.2500 ####[facility] [address] [place], [address] CBC W/Diff, Automatedon 07-2 Absolute Neut Normal 2.0-7.7 [facility] Comment on above: Result Comment: Canc elled via OM: Order cancelled - Patient discharged Performed By: #### L 100.0100, L500.2500 ####[facility] [address] [place], [address] HCT Normal 37-47 [facility] Comment on above: Result Comment: Canc elled via OM: Order cancelled - Patient discharged Performed By: #### L 100.0100, L500.2500 ####[facility] [address] [place], [address] HGB Normal 12.0-15.0 [facility] Comment on above: Result Comment: Canc elled via OM: Order cancelled - Patient discharged Performed By: #### L 100.0100, L500.2500 ####[facility] [address] [place], [address] MCH Normal 27.0-32.0 [facility] Comment on above: Result Comment: Canc elled via OM: Order cancelled - Patient discharged Performed By: #### L 100.0100, L500.2500 ####[facility] [address] [place], [address] MCHC Normal 32-36 [facility] Comment on above: Result Comment: Canc elled via OM: Order cancelled - Patient discharged Performed By: #### L 100.0100, L500.2500 ####[facility] [address] [place], [address] MCV Normal 81-99 [facility] Comment on above: Result Comment: Canc elled via OM: Order cancelled - Patient discharged Performed By: #### L 100.0100, L500.2500 ####[facility] [address] [place], [address] NEUT% Normal 47-70 [facility] Comment on above: Result Comment: Canc elled via OM: Order cancelled - Patient discharged Performed By: #### L 100.0100, L500.2500 ####[facility] [address] [place], [address] PLT Normal 150-450 [facility] Comment on above: Result Comment: Canc elled via OM: Order cancelled - Patient discharged Performed By: #### L 100.0100, L500.2500 ####[facility] [address] [place], [address] RBC Normal 4.2-5.4 [facility] Comment on above: Result Comment: Canc elled via OM: Order cancelled - Patient discharged Performed By: #### L 100.0100, L500.2500 ####[facility] [address] [place], [address] RDW CV Normal 11.6-14.6 [facility] Comment on above: Result Comment: Canc elled via OM: Order cancelled - Patient discharged Performed By: #### L 100.0100, L500.2500 ####[facility] [address] [place], [address] RDW SD Normal 35.1-43.9 [facility] Comment on above: Result Comment: Canc elled via OM: Order cancelled - Patient discharged Performed By: #### L 100.0100, L500.2500 ####[facility] [address] [place], [address] WBC Normal 4.4-11.0 [facility] Comment on above: Result Comment: Canc elled via OM: Order cancelled - Patient discharged Performed By: #### L 100.0100, L500.2500 ####[facility] [address] [place], [address] Basic Metabolic Profile (BMP )on 03-27-2025 BUN Normal 4-19 [facility] Comment on above: Result Comment: Canc elled via OM: Order cancelled - Patient discharged Performed By: #### L 500.2500, L100.0100 ####[facility] [address] [place], [address] BUN/CRE Normal 10-20 [facility] Comment on above: Result Comment: Canc elled via OM: Order cancelled - Patient discharged Performed By: #### L 500.2500, L100.0100 ####[facility] [address] [place], [address] Calcium Normal 7.6-11.0 [facility] Comment on above: Result Comment: Canc elled via OM: Order cancelled - Patient discharged Performed By: #### L 500.2500, L100.0100 ####[facility] [address] [place], [address] CL Normal 98-108 [facility] Comment on above: Result Comment: Canc elled via OM: Order cancelled - Patient discharged Performed By: #### L 500.2500, L100.0100 ####[facility] [address] [place], [address] CO2 Normal 21.0-32.0 [facility] Comment on above: Result Comment: Canc elled via OM: Order cancelled - Patient discharged Performed By: #### L 500.2500, L100.0100 ####[facility] [address] [place], [address] CREAT,SERUM Normal 0.70-1.20 [facility] Comment on above: Result Comment: Canc elled via OM: Order cancelled - Patient discharged Performed By: #### L 500.2500, L100.0100 ####[facility] [address] [place], [address] eGFR Normal >60 [facility] Comment on above: Result Comment: Canc elled via OM: Order cancelled - Patient discharged Performed By: #### L 500.2500, L100.0100 ####[facility] [address] [place], [address] GAP Normal 5-15 [facility] Comment on above: Result Comment: Canc elled via OM: Order cancelled - Patient discharged Performed By: #### L 500.2500, L100.0100 ####[facility] [address] [place], [address] GLU Normal 70-99 [facility] Comment on above: Result Comment: Canc elled via OM: Order cancelled - Patient discharged Performed By: #### L 500.2500, L100.0100 ####[facility] [address] [place], [address] Potassium Normal 3.3-5.1 [facility] Comment on above: Result Comment: Canc elled via OM: Order cancelled - Patient discharged Performed By: #### L 500.2500, L100.0100 ####[facility] [address] [place], [address] Basic Metabolic Profile (BMP) Normal 133-145 [facility] Comment on above: Result Comment: Canc elled via OM: Order cancelled - Patient discharged Performed By: #### L 500.2500, L100.0100 ####[facility] [address] [place], [address] CBC W/Diff, Automatedon 07-2 Absolute Neut Normal 2.0-7.7 [facility] Comment on above: Result Comment: Canc elled via OM: Order cancelled - Patient discharged Performed By: #### L 500.2500, L100.0100 ####[facility] [address] [place], [address] HCT Normal 37-47 [facility] Comment on above: Result Comment: Canc elled via OM: Order cancelled - Patient discharged Performed By: #### L 500.2500, L100.0100 ####[facility] [address] [place], [address] HGB Normal 12.0-15.0 [facility] Comment on above: Result Comment: Canc elled via OM: Order cancelled - Patient discharged Performed By: #### L 500.2500, L100.0100 ####[facility] [address] [place], [address] MCH Normal 27.0-32.0 [facility] Comment on above: Result Comment: Canc elled via OM: Order cancelled - Patient discharged Performed By: #### L 500.2500, L100.0100 ####[facility] [address] [place], [address] MCHC Normal 32-36 [facility] Comment on above: Result Comment: Canc elled via OM: Order cancelled - Patient discharged Performed By: #### L 500.2500, L100.0100 ####[facility] [address] [place], [address] MCV Normal 81-99 [facility] Comment on above: Result Comment: Canc elled via OM: Order cancelled - Patient discharged Performed By: #### L 500.2500, L100.0100 ####[facility] [address] [place], [address] NEUT% Normal 47-70 [facility] Comment on above: Result Comment: Canc elled via OM: Order cancelled - Patient discharged Performed By: #### L 500.2500, L100.0100 ####[facility] [address] [place], [address] PLT Normal 150-450 [facility] Comment on above: Result Comment: Canc elled via OM: Order cancelled - Patient discharged Performed By: #### L 500.2500, L100.0100 ####[facility] [address] [place], [address] RBC Normal 4.2-5.4 [facility] Comment on above: Result Comment: Canc elled via OM: Order cancelled - Patient discharged Performed By: #### L 500.2500, L100.0100 ####[facility] [address] [place], [address] RDW CV Normal 11.6-14.6 [facility] Comment on above: Result Comment: Canc elled via OM: Order cancelled - Patient discharged Performed By: #### L 500.2500, L100.0100 ####[facility] [address] [place], [address] RDW SD Normal 35.1-43.9 [facility] Comment on above: Result Comment: Canc elled via OM: Order cancelled - Patient discharged Performed By: #### L 500.2500, L100.0100 ####[facility] [address] [place], [address] WBC Normal 4.4-11.0 [facility] Comment on above: Result Comment: Canc elled via OM: Order cancelled - Patient discharged Performed By: #### L 500.2500, L100.0100 ####[facility] [address] [place], [address] Basic Metabolic Profile (BMP )on 03-26-2025 BUN Normal 4-19 [facility] Comment on above: Result Comment: Canc elled via OM: Order cancelled - Patient discharged Performed By: #### L 500.2500, L100.0100 ####[facility] [address] [place], [address] BUN/CRE Normal 10-20 [facility] Comment on above: Result Comment: Canc elled via OM: Order cancelled - Patient discharged Performed By: #### L 500.2500, L100.0100 ####[facility] [address] [place], [address] Calcium Normal 7.6-11.0 [facility] Comment on above: Result Comment: Canc elled via OM: Order cancelled - Patient discharged Performed By: #### L 500.2500, L100.0100 ####[facility] [address] [place], [address] CL Normal 98-108 [facility] Comment on above: Result Comment: Canc elled via OM: Order cancelled - Patient discharged Performed By: #### L 500.2500, L100.0100 ####[facility] [address] [place], [address] CO2 Normal 21.0-32.0 [facility] Comment on above: Result Comment: Canc elled via OM: Order cancelled - Patient discharged Performed By: #### L 500.2500, L100.0100 ####[facility] [address] [place], [address] CREAT,SERUM Normal 0.70-1.20 [facility] Comment on above: Result Comment: Canc elled via OM: Order cancelled - Patient discharged Performed By: #### L 500.2500, L100.0100 ####[facility] [address] [place], [address] eGFR Normal >60 [facility] Comment on above: Result Comment: Canc elled via OM: Order cancelled - Patient discharged Performed By: #### L 500.2500, L100.0100 ####[facility] [address] [place], [address] GAP Normal 5-15 [facility] Comment on above: Result Comment: Canc elled via OM: Order cancelled - Patient discharged Performed By: #### L 500.2500, L100.0100 ####[facility] [address] [place], [address] GLU Normal 70-99 [facility] Comment on above: Result Comment: Canc elled via OM: Order cancelled - Patient discharged Performed By: #### L 500.2500, L100.0100 ####[facility] [address] [place], [address] Potassium Normal 3.3-5.1 [facility] Comment on above: Result Comment: Canc elled via OM: Order cancelled - Patient discharged Performed By: #### L 500.2500, L100.0100 ####[facility] [address] [place], [address] Basic Metabolic Profile (BMP) Normal 133-145 [facility] Comment on above: Result Comment: Canc elled via OM: Order cancelled - Patient discharged Performed By: #### L 500.2500, L100.0100 ####[facility] [address] [place], [address] CBC W/Diff, Automatedon 07-2 Absolute Neut Normal 2.0-7.7 [facility] Comment on above: Result Comment: Canc elled via OM: Order cancelled - Patient discharged Performed By: #### L 500.2500, L100.0100 ####[facility] [address] [place], [address] HCT Normal 37-47 [facility] Comment on above: Result Comment: Canc elled via OM: Order cancelled - Patient discharged Performed By: #### L 500.2500, L100.0100 ####[facility] [address] [place], [address] HGB Normal 12.0-15.0 [facility] Comment on above: Result Comment: Canc elled via OM: Order cancelled - Patient discharged Performed By: #### L 500.2500, L100.0100 ####[facility] [address] [place], [address] MCH Normal 27.0-32.0 [facility] Comment on above: Result Comment: Canc elled via OM: Order cancelled - Patient discharged Performed By: #### L 500.2500, L100.0100 ####[facility] [address] [place], [address] MCHC Normal 32-36 [facility] Comment on above: Result Comment: Canc elled via OM: Order cancelled - Patient discharged Performed By: #### L 500.2500, L100.0100 ####[facility] [address] [place], [address] MCV Normal 81-99 [facility] Comment on above: Result Comment: Canc elled via OM: Order cancelled - Patient discharged Performed By: #### L 500.2500, L100.0100 ####[facility] [address] [place], [address] NEUT% Normal 47-70 [facility] Comment on above: Result Comment: Canc elled via OM: Order cancelled - Patient discharged Performed By: #### L 500.2500, L100.0100 ####[facility] [address] [place], [address] PLT Normal 150-450 [facility] Comment on above: Result Comment: Canc elled via OM: Order cancelled - Patient discharged Performed By: #### L 500.2500, L100.0100 ####[facility] [address] [place], [address] RBC Normal 4.2-5.4 [facility] Comment on above: Result Comment: Canc elled via OM: Order cancelled - Patient discharged Performed By: #### L 500.2500, L100.0100 ####[facility] [address] [place], [address] RDW CV Normal 11.6-14.6 [facility] Comment on above: Result Comment: Canc elled via OM: Order cancelled - Patient discharged Performed By: #### L 500.2500, L100.0100 ####[facility] [address] [place], [address] RDW SD Normal 35.1-43.9 [facility] Comment on above: Result Comment: Canc elled via OM: Order cancelled - Patient discharged Performed By: #### L 500.2500, L100.0100 ####[facility] [address] [place], [address] WBC Normal 4.4-11.0 [facility] Comment on above: Result Comment: Canc elled via OM: Order cancelled - Patient discharged Performed By: #### L 500.2500, L100.0100 ####[facility] [address] [place], [address] Absolute lymphocyte countOrd ered By: Melba Hartmann on 03-25-2025 Lymphocytes Auto (Unsp spec) [#/Vol] 2.04 10*3/uL 0.83-4.51 [facility] Anion gap in Serum or Plasma Ordered By: Melba Hartmann on 03-25-2025 Anion gap [Moles/Vol] 12 mmol/L 5-15 [facility] Automated lymphocyte count a s percentage of total leukocytesOrdered By: Melba Hartmann on 03-25-2025 Lymphocytes/100 WBC Auto (Unsp spec) 26.3 % 19-41 [facility] BUN/creatinine ratioOrdered By: Melba Hartmann on 03-25-2025 Urea nitrogen/Creatinine [Mass ratio] 22.1 mg/mg High - [facility] Basic Metabolic Profile (BMP )on 03-25-2025 BUN/CRE 22.1 RATIO High - [facility] Comment on above: Performed By: #### L 500.2500, L100.0100 ####[facility] [address] [place], [address] Calcium [Mass/Vol] 10.6 mg/dL Normal 7.6-11.0 [facility] Comment on above: Performed By: #### L 500.2500, L100.0100 ####[facility] [address] [place], [address] Chloride [Moles/Vol] 101 mmol/L Normal 98-108 [facility] Comment on above: Performed By: #### L 500.2500, L100.0100 ####[facility] [address] [place], [address] CO2 [Moles/Vol] 26.0 mmol/L Normal 21.0-32.0 [facility] Comment on above: Performed By: #### L 500.2500, L100.0100 ####[facility] [address] [place], [address] Creatinine [Mass/Vol] 1.14 mg/dL Normal 0.70-1.20 [facility] Comment on above: Performed By: #### L 500.2500, L100.0100 ####[facility] [address] [place], [address] ECRCL 38.25 ml/min Low 50-250 [facility] Comment on above: Performed By: #### L 500.2500, L100.0100 ####[facility] [address] [place], [address] GAP 12 Normal 5-15 [facility] Comment on above: Performed By: #### L 500.2500, L100.0100 ####[facility] [address] [place], [address] GFR/1.73 sq M.predicted among non-blacks MDRD (S/P/Bld) [Vol rate/Area] 48 mL/min/{1.73_m2} Low >60 [facility] Comment on above: Result Comment: mL/m in/1.73m2 CKD-EPI Creatinine Equation (2020) Performed By: #### L 500.2500, L100.0100 ####[facility] [address] [place], [address] Glucose [Mass/Vol] 123 mg/dL High 70-99 [facility] Comment on above: Performed By: #### L 500.2500, L100.0100 ####[facility] [address] [place], [address] Potassium [Moles/Vol] 4.8 mmol/L Normal 3.3-5.1 [facility] Comment on above: Performed By: #### L 500.2500, L100.0100 ####[facility] [address] [place], [address] Sodium [Moles/Vol] 139 mmol/L Normal 133-145 [facility] Comment on above: Performed By: #### L 500.2500, L100.0100 ####[facility] [address] [place], [address] Urea nitrogen [Mass/Vol] 25 mg/dL High 4-19 [facility] Comment on above: Performed By: #### L 500.2500, L100.0100 ####[facility] [address] [place], [address] Basophil percentageOrdered B y: Melbanereida Hartmann on 03-25-2025 Basophils/100 WBC (Bld) 0.4 % 0-1 [facility] Bedside Glucoseon 03-25-2025 F[place]ER[place]ICK GLU 193 mg/dL High 74-106 [facility] Comment on above: Result Comment: KATARINA GARY OF PATIENT CARE PER NURSING PROTOCOL Performed By: #### L 501.080 ####[facility] [address] [place], [address] FINGERSTICK GLU 164 mg/dL High 74-106 [facility] Comment on above: Result Comment: KATARINA GEMENT OF PATIENT CARE PER NURSING PROTOCOL Performed By: #### L 501.080 ####[facility] [address] [place], [address] FINGERSTICK GLU 124 mg/dL High 74-106 [facility] Comment on above: Result Comment: KATARINA GEMENT OF PATIENT CARE PER NURSING PROTOCOL Performed By: #### L 501.080 ####[facility] [address] [place], [address] CBC W/Diff, Automatedon 07-2 6-2024 Absolute Lymph 2.04 X10 3/uL Normal 0.83-4.51 [facility] Comment on above: Performed By: #### L 500.2500, L100.0100 ####[facility] [address] [place], [address] Absolute Neut 4.8 X10 3/uL Normal 2.0-7.7 [facility] Comment on above: Performed By: #### L 500.2500, L100.0100 ####[facility] [address] [place], [address] Basophils/100 WBC (Bld) 0.4 % Normal 0-1 [facility] Comment on above: Performed By: #### L 500.2500, L100.0100 ####[facility] [address] [place], [address] Eosinophils/100 WBC (Bld) 0.8 % Normal 0-5 [facility] Comment on above: Performed By: #### L 500.2500, L100.0100 ####[facility] [address] [place], [address] Erythrocyte distribution width (RBC) [Ratio] 16.3 % High 11.6-14.6 [facility] Comment on above: Performed By: #### L 500.2500, L100.0100 ####[facility] [address] [place], [address] Hematocrit (Bld) [Volume fraction] 29.7 % Low 37-47 [facility] Comment on above: Performed By: #### L 500.2500, L100.0100 ####[facility] [address] [place], [address] Hemoglobin (Bld) [Mass/Vol] 9.0 g/dL Low 12.0-15.0 [facility] Comment on above: Performed By: #### L 500.2500, L100.0100 ####[facility] [address] [place], [address] IG% 0.800 Normal 0.0-0.9 [facility] Comment on above: Result Comment: IG% - Immature Granulocytes (promyelocytes, myelocytes andmetamyelocytes) > 1% indicates that a LEFT SHIFT is Present. Performed By: #### L 500.2500, L100.0100 ####[facility] [address] [place], [address] Lymphocytes/100 WBC (Bld) 26.3 % Normal 19-41 [facility] Comment on above: Performed By: #### L 500.2500, L100.0100 ####[facility] [address] [place], [address] MCH (RBC) [Entitic mass] 27.2 pg Normal 27.0-32.0 [facility] Comment on above: Performed By: #### L 500.2500, L100.0100 ####[facility] [address] [place], [address] MCHC (RBC) [Mass/Vol] 30.3 g/dL Low 32-36 [facility] Comment on above: Performed By: #### L 500.2500, L100.0100 ####[facility] [address] [place], [address] MCV (RBC) [Entitic vol] 89.7 fL Normal 81-99 [facility] Comment on above: Performed By: #### L 500.2500, L100.0100 ####[facility] [address] [place], [address] Monocytes/100 WBC (Bld) 10.4 % High 0-10 [facility] Comment on above: Performed By: #### L 500.2500, L100.0100 ####[facility] [address] [place], [address] Neutrophils/100 WBC (Bld) 61.3 % Normal 47-70 [facility] Comment on above: Performed By: #### L 500.2500, L100.0100 ####[facility] [address] [place], [address] Nucleated RBC (Bld) [#/Vol] 0.3 10*3/uL Normal 0-5 [facility] Comment on above: Performed By: #### L 500.2500, L100.0100 ####[facility] [address] [place], [address] Platelet mean volume (Bld) [Entitic vol] 10.8 fL Normal 6.2-12.0 [facility] Comment on above: Performed By: #### L 500.2500, L100.0100 ####[facility] [address] [place], [address] Platelets (Bld) [#/Vol] 251 10*3/uL Normal 150-450 [facility] Comment on above: Performed By: #### L 500.2500, L100.0100 ####[facility] [address] [place], [address] RBC (Bld) [#/Vol] 3.31 10*6/uL Low 4.2-5.4 [facility] Comment on above: Performed By: #### L 500.2500, L100.0100 ####[facility] [address] [place], [address] RDW SD 53.7 fl High 35.1-43.9 [facility] Comment on above: Performed By: #### L 500.2500, L100.0100 ####[facility] [address] [place], [address] WBC (Bld) [#/Vol] 7.8 10*3/uL Normal 4.4-11.0 [facility] Comment on above: Performed By: #### L 500.2500, L100.0100 ####[facility] [address] [facility] [place], [address] Carbon dioxide, total [Moles /volume] in Central venous bloodOrdered By: Melba Hartmann on 03-25-2025 CO2 [Moles/Vol] 26.0 mmol/L 21.0-32.0 [facility] Chloride assayOrdered By: Na na Mary Kate on 03-25-2025 Chloride [Moles/Vol] 101 mmol/L 98-108 [facility] Discharge Instructionon 03-01 Discharge Instruction Normal [facility] Eosinophil percentageOrdered By: Melba Hartmann on 03-25-2025 Eosinophils/100 WBC (Bld) 0.8 % 0-5 [facility] Erythrocyte distribution wid th ratioOrdered By: Melba Hartmann on 03-25-2025 Erythrocyte distribution width (RBC) [Ratio] 16.3 % High 11.6-14.6 [facility] Erythrocyte distribution wid th standard deviationOrdered By: Melba Hartmann on 03-25-2025 Erythrocyte distribution width (RBC) [Ratio] 53.7 fl High 35.1-43.9 [facility] Glomerular filtration rate ( GFR) estimation/1.73 sq m using serum, plasma, or whole bOrdered By: Melba Hartmann on 03-25-2025 GFR/1.73 sq M.predicted among non-blacks MDRD (S/P/Bld) [Vol rate/Area] 48 mL/min/{1.73_m2} Low >60 [facility] Glucose measurement at bedsi deOrdered By: Melba Hartmann on 03-25-2025 Glucose [Mass/Vol] 193 mg/dL High 74-106 [facility] Hematocrit Auto (Bld) [Volum e fraction]Ordered By: Melba Hartmann on 03-25-2025 Hematocrit (Bld) [Volume fraction] 29.7 % Low 37-47 [facility] Hemoglobin measurementOrdere d By: Melba Hartmann on 03-25-2025 Hemoglobin (Bld) [Mass/Vol] 9.0 g/dL Low 12.0-15.0 [facility] Immature granulocytes/100 WB C Auto (Bld)Ordered By: Melba Hartmann on 03-25-2025 Immature granulocytes/100 WBC (Bld) 0.800 % 0.0-0.9 [facility] MCV (mean corpuscular volume ) determinationOrdered By: Melba Hartmann on 03-25-2025 MCV (RBC) [Entitic vol] 89.7 fL 81-99 [facility] Mean corpuscular hemoglobin (MCH) determinationOrdered By: Melba Hartmann on 03-25-2025 MCH (RBC) [Entitic mass] 27.2 pg 27.0-32.0 [facility] Monocyte percentageOrdered B y: Melba Hartmann on 03-25-2025 Monocytes/100 WBC (Bld) 10.4 % High 0-10 [facility] Neutrophil percentageOrdered By: Melba Hartmann on 03-25-2025 Neutrophils/100 WBC (Bld) 61.3 % 47-70 [facility] Platelet countOrdered By: Ewelina Hartmann on 03-25-2025 Platelets (Bld) [#/Vol] 251 10*3/uL 150-450 [facility] Potassium measurement (mass/ volume)Ordered By: Melba Hartmann on 03-25-2025 Potassium (Unsp spec) [Mass/Vol] 4.8 mmol/L 3.3-5.1 [facility] RBC Auto (Bld) [#/Vol]Ordere d By: Melba Hartmann on 03-25-2025 RBC (Bld) [#/Vol] 3.31 10*6/uL Low 4.2-5.4 [facility] Serum creatinine measurement (mass/volume)Ordered By: Melba Hartmann on 03-25-2025 Creatinine [Mass/Vol] 1.14 mg/dL 0.70-1.20 [facility] Serum glucose measurement (m ass/volume)Ordered By: Melba Hartmann on 03-25-2025 Glucose [Mass/Vol] 123 mg/dL High 70-99 [facility] Serum or plasma calcium melanie urement (mass/volume)Ordered By: Melba Hartmann on 03-25-2025 Calcium [Mass/Vol] 10.6 mg/dL 7.6-11.0 [facility] Serum or plasma urea nitroge n measurement (mass/volume)Ordered By: Melba Hartmann on 03-25-2025 Urea nitrogen [Mass/Vol] 25 mg/dL High 4-19 [facility] Sodium levelOrdered By: Melba Hartmann on 03-25-2025 Sodium [Moles/Vol] 139 mmol/L 133-145 [facility] White blood cell (WBC) count Ordered By: Melba Hartmann on 03-25-2025 WBC (Bld) [#/Vol] 7.8 10*3/uL 4.4-11.0 [facility] Basic Metabolic Profile (BMP )on 03-24-2025 BUN/CRE 19.7 RATIO Normal 10-20 [facility] Comment on above: Performed By: #### L 100.0100, L500.2500 ####[facility] [address] [place], [address] Calcium [Mass/Vol] 10.5 mg/dL Normal 7.6-11.0 [facility] Comment on above: Performed By: #### L 100.0100, L500.2500 ####[facility] [address] [place], [address] Chloride [Moles/Vol] 97 mmol/L Low 98-108 [facility] Comment on above: Performed By: #### L 100.0100, L500.2500 ####[facility] [address] [place], [address] CO2 [Moles/Vol] 27.0 mmol/L Normal 21.0-32.0 [facility] Comment on above: Performed By: #### L 100.0100, L500.2500 ####[facility] [address] [place], [address] Creatinine [Mass/Vol] 1.21 mg/dL High 0.70-1.20 [facility] Comment on above: Performed By: #### L 100.0100, L500.2500 ####[facility] [address] [place], [address] ECRCL 35.44 ml/min Low 50-250 [facility] Comment on above: Performed By: #### L 100.0100, L500.2500 ####[facility] [address] [place], [address] GAP 11 Normal 5-15 [facility] Comment on above: Performed By: #### L 100.0100, L500.2500 ####[facility] [address] [place], [address] GFR/1.73 sq M.predicted among non-blacks MDRD (S/P/Bld) [Vol rate/Area] 45 mL/min/{1.73_m2} Low >60 [facility] Comment on above: Result Comment: mL/m in/1.73m2 CKD-EPI Creatinine Equation (2020) Performed By: #### L 100.0100, L500.2500 ####[facility] [address] [place], [address] Glucose [Mass/Vol] 165 mg/dL High 70-99 [facility] Comment on above: Performed By: #### L 100.0100, L500.2500 ####[facility] [address] [place], [address] Potassium [Moles/Vol] 4.8 mmol/L Normal 3.3-5.1 [facility] Comment on above: Performed By: #### L 100.0100, L500.2500 ####[facility] [address] [place], [address] Sodium [Moles/Vol] 135 mmol/L Normal 133-145 [facility] Comment on above: Performed By: #### L 100.0100, L500.2500 ####[facility] [address] [place], [address] Urea nitrogen [Mass/Vol] 24 mg/dL High 4-19 [facility] Comment on above: Performed By: #### L 100.0100, L500.2500 ####[facility] [address] [place], [address] Bedside Glucoseon 03-24-2025 FINGERSTICK GLU 294 mg/dL High 74-106 [facility] Comment on above: Result Comment: KATARINA GEMENT OF PATIENT CARE PER NURSING PROTOCOL Performed By: #### L 501.080 ####[facility] [address] [place], [address] FINGERSTICK GLU 311 mg/dL High 74-106 [facility] Comment on above: Result Comment: KATARINA GEMENT OF PATIENT CARE PER NURSING PROTOCOL Performed By: #### L 501.080 ####[facility] [address] [place], [address] FINGERSTICK GLU 132 mg/dL High 74-106 [facility] Comment on above: Result Comment: KATARINA GEMENT OF PATIENT CARE PER NURSING PROTOCOL Performed By: #### L 501.080 ####[facility] [address] [place], [address] FINGERSTICK GLU 156 mg/dL High 74-106 [facility] Comment on above: Result Comment: KATARINA GEMENT OF PATIENT CARE PER NURSING PROTOCOL Performed By: #### L 501.080 ####[facility] [address] [place], [address] CBC W/Diff, Automatedon 07-2 5-2024 Absolute Lymph 1.88 X10 3/uL Normal 0.83-4.51 [facility] Comment on above: Performed By: #### L 100.0100, L500.2500 ####[facility] [address] [place], [address] Absolute Neut 6.1 X10 3/uL Normal 2.0-7.7 [facility] Comment on above: Performed By: #### L 100.0100, L500.2500 ####[facility] [address] [place], [address] Basophils/100 WBC (Bld) 0.3 % Normal 0-1 [facility] Comment on above: Performed By: #### L 100.0100, L500.2500 ####[facility] [address] [place], [address] Eosinophils/100 WBC (Bld) 0.8 % Normal 0-5 [facility] Comment on above: Performed By: #### L 100.0100, L500.2500 ####[facility] [address] [place], [address] Erythrocyte distribution width (RBC) [Ratio] 16.4 % High 11.6-14.6 [facility] Comment on above: Performed By: #### L 100.0100, L500.2500 ####[facility] [address] [place], [address] Hematocrit (Bld) [Volume fraction] 29.7 % Low 37-47 [facility] Comment on above: Performed By: #### L 100.0100, L500.2500 ####[facility] [address] [place], [address] Hemoglobin (Bld) [Mass/Vol] 9.1 g/dL Low 12.0-15.0 [facility] Comment on above: Performed By: #### L 100.0100, L500.2500 ####[facility] [address] [place], [address] IG% 0.300 Normal 0.0-0.9 [facility] Comment on above: Result Comment: IG% - Immature Granulocytes (promyelocytes, myelocytes andmetamyelocytes) > 1% indicates that a LEFT SHIFT is Present. Performed By: #### L 100.0100, L500.2500 ####[facility] [address] [place], [address] Lymphocytes/100 WBC (Bld) 21.3 % Normal 19-41 [facility] Comment on above: Performed By: #### L 100.0100, L500.2500 ####[facility] [address] [place], [address] MCH (RBC) [Entitic mass] 26.6 pg Low 27.0-32.0 [facility] Comment on above: Performed By: #### L 100.0100, L500.2500 ####[facility] [address] [place], [address] MCHC (RBC) [Mass/Vol] 30.6 g/dL Low 32-36 [facility] Comment on above: Performed By: #### L 100.0100, L500.2500 ####[facility] [address] [place], [address] MCV (RBC) [Entitic vol] 86.8 fL Normal 81-99 [facility] Comment on above: Performed By: #### L 100.0100, L500.2500 ####[facility] [address] [place], [address] Monocytes/100 WBC (Bld) 8.5 % Normal 0-10 [facility] Comment on above: Performed By: #### L 100.0100, L500.2500 ####[facility] [address] [place], [address] Neutrophils/100 WBC (Bld) 68.8 % Normal 47-70 [facility] Comment on above: Performed By: #### L 100.0100, L500.2500 ####[facility] [address] [place], [address] Nucleated RBC (Bld) [#/Vol] 0 10*3/uL Normal 0-5 [facility] Comment on above: Performed By: #### L 100.0100, L500.2500 ####[facility] [address] [place], [address] Platelet mean volume (Bld) [Entitic vol] 10.7 fL Normal 6.2-12.0 [facility] Comment on above: Performed By: #### L 100.0100, L500.2500 ####[facility] [address] [place], [address] Platelets (Bld) [#/Vol] 288 10*3/uL Normal 150-450 [facility] Comment on above: Performed By: #### L 100.0100, L500.2500 ####[facility] [address] [place], [address] RBC (Bld) [#/Vol] 3.42 10*6/uL Low 4.2-5.4 [facility] Comment on above: Performed By: #### L 100.0100, L500.2500 ####[facility] [address] [place], [address] RDW SD 52.3 fl High 35.1-43.9 [facility] Comment on above: Performed By: #### L 100.0100, L500.2500 ####[facility] [address] [place], [address] WBC (Bld) [#/Vol] 8.8 10*3/uL Normal 4.4-11.0 [facility] Comment on above: Performed By: #### L 100.0100, L500.2500 ####[facility] [address] [place], [address] Urine Cultureon 03-24-2025 URC Normal [facility] Comment on above: Performed By: #### M 100.2200 ####[facility] [address] [place], [address] Basic Metabolic Profile (BMP )on 03-23-2025 BUN/CRE 15.2 RATIO Normal 10-20 [facility] Comment on above: Performed By: #### L 500.2500, L100.0100 ####[facility] [address] [place], [address] Calcium [Mass/Vol] 10.2 mg/dL Normal 7.6-11.0 [facility] Comment on above: Performed By: #### L 500.2500, L100.0100 ####[facility] [address] [place], [address] Chloride [Moles/Vol] 98 mmol/L Normal 98-108 [facility] Comment on above: Performed By: #### L 500.2500, L100.0100 ####[facility] [address] [place], [address] CO2 [Moles/Vol] 26.0 mmol/L Normal 21.0-32.0 [facility] Comment on above: Performed By: #### L 500.2500, L100.0100 ####[facility] [address] [place], [address] Creatinine [Mass/Vol] 1.25 mg/dL High 0.70-1.20 [facility] Comment on above: Performed By: #### L 500.2500, L100.0100 ####[facility] [address] [place], [address] ECRCL 33.86 ml/min Low 50-250 [facility] Comment on above: Performed By: #### L 500.2500, L100.0100 ####[facility] [address] [place], [address] GAP 8 Normal 5-15 [facility] Comment on above: Performed By: #### L 500.2500, L100.0100 ####[facility] [address] [place], [address] GFR/1.73 sq M.predicted among non-blacks MDRD (S/P/Bld) [Vol rate/Area] 43 mL/min/{1.73_m2} Low >60 [facility] Comment on above: Result Comment: mL/m in/1.73m2 CKD-EPI Creatinine Equation (2020) Performed By: #### L 500.2500, L100.0100 ####[facility] [address] [place], [address] Glucose [Mass/Vol] 198 mg/dL High 70-99 [facility] Comment on above: Performed By: #### L 500.2500, L100.0100 ####[facility] [address] [place], [address] Potassium [Moles/Vol] 5.8 mmol/L High 3.3-5.1 [facility] Comment on above: Performed By: #### L 500.2500, L100.0100 ####[facility] [address] [place], [address] Sodium [Moles/Vol] 132 mmol/L Low 133-145 [facility] Comment on above: Performed By: #### L 500.2500, L100.0100 ####[facility] [address] [place], [address] Urea nitrogen [Mass/Vol] 19 mg/dL Normal 4-19 [facility] Comment on above: Performed By: #### L 500.2500, L100.0100 ####[facility] [address] [place], [address] Bedside Glucoseon - FINGERSTICK GLU 257 mg/dL High 74-106 [facility] Comment on above: Result Comment: KATARINA GEMENT OF PATIENT CARE PER NURSING PROTOCOL Performed By: #### L 501.080 ####[facility] [address] [place], [address] FINGERSTICK GLU 251 mg/dL High 74-106 [facility] Comment on above: Result Comment: KATARINA GEMENT OF PATIENT CARE PER NURSING PROTOCOL Performed By: #### L 501.080 ####[facility] [address] [place], [address] FINGERSTICK GLU 232 mg/dL High 74-106 [facility] Comment on above: Result Comment: KATARINA GEMENT OF PATIENT CARE PER NURSING PROTOCOL Performed By: #### L 501.080 ####[facility] [address] [place], [address] FINGERSTICK GLU 228 mg/dL High -106 [facility] Comment on above: Result Comment: KATARINA GEMENT OF PATIENT CARE PER NURSING PROTOCOL Performed By: #### L 501.080 ####[facility] [address] [place], [address] CBC W/Diff, Automatedon 07-2 Absolute Lymph 1.21 X10 3/uL Normal 0.83-4.51 [facility] Comment on above: Performed By: #### L 500.2500, L100.0100 ####[facility] [address] [place], [address] Absolute Neut 5.6 X10 3/uL Normal 2.0-7.7 [facility] Comment on above: Performed By: #### L 500.2500, L100.0100 ####[facility] [address] [place], [address] Basophils/100 WBC (Bld) 0.1 % Normal 0-1 [facility] Comment on above: Performed By: #### L 500.2500, L100.0100 ####[facility] [address] [place], [address] Eosinophils/100 WBC (Bld) 0.0 % Normal 0-5 [facility] Comment on above: Performed By: #### L 500.2500, L100.0100 ####[facility] [address] [place], [address] Erythrocyte distribution width (RBC) [Ratio] 16.0 % High 11.6-14.6 [facility] Comment on above: Performed By: #### L 500.2500, L100.0100 ####[facility] [address] [place], [address] Hematocrit (Bld) [Volume fraction] 28.0 % Low 37-47 [facility] Comment on above: Performed By: #### L 500.2500, L100.0100 ####[facility] [address] [place], [address] Hemoglobin (Bld) [Mass/Vol] 8.8 g/dL Low 12.0-15.0 [facility] Comment on above: Performed By: #### L 500.2500, L100.0100 ####[facility] [address] [place], [address] IG% 0.500 Normal 0.0-0.9 [facility] Comment on above: Result Comment: IG% - Immature Granulocytes (promyelocytes, myelocytes andmetamyelocytes) > 1% indicates that a LEFT SHIFT is Present. Performed By: #### L 500.2500, L100.0100 ####[facility] [address] [place], [address] Lymphocytes/100 WBC (Bld) 16.5 % Low 19-41 [facility] Comment on above: Performed By: #### L 500.2500, L100.0100 ####[facility] [address] [place], [address] MCH (RBC) [Entitic mass] 27.0 pg Normal 27.0-32.0 [facility] Comment on above: Performed By: #### L 500.2500, L100.0100 ####[facility] [address] [place], [address] MCHC (RBC) [Mass/Vol] 31.4 g/dL Low 32-36 [facility] Comment on above: Performed By: #### L 500.2500, L100.0100 ####[facility] [address] [place], [address] MCV (RBC) [Entitic vol] 85.9 fL Normal 81-99 [facility] Comment on above: Performed By: #### L 500.2500, L100.0100 ####[facility] [address] [place], [address] Monocytes/100 WBC (Bld) 6.8 % Normal 0-10 [facility] Comment on above: Performed By: #### L 500.2500, L100.0100 ####[facility] [address] [place], [address] Neutrophils/100 WBC (Bld) 76.1 % High 47-70 [facility] Comment on above: Performed By: #### L 500.2500, L100.0100 ####[facility] [address] [place], [address] Nucleated RBC (Bld) [#/Vol] 0 10*3/uL Normal 0-5 [facility] Comment on above: Performed By: #### L 500.2500, L100.0100 ####[facility] [address] [place], [address] Platelet mean volume (Bld) [Entitic vol] 10.7 fL Normal 6.2-12.0 [facility] Comment on above: Performed By: #### L 500.2500, L100.0100 ####[facility] [address] [place], [address] Platelets (Bld) [#/Vol] 274 10*3/uL Normal 150-450 [facility] Comment on above: Performed By: #### L 500.2500, L100.0100 ####[facility] [address] [place], [address] RBC (Bld) [#/Vol] 3.26 10*6/uL Low 4.2-5.4 [facility] Comment on above: Performed By: #### L 500.2500, L100.0100 ####[facility] [address] [place], [address] RDW SD 50.8 fl High 35.1-43.9 [facility] Comment on above: Performed By: #### L 500.2500, L100.0100 ####[facility] [address] [place], [address] WBC (Bld) [#/Vol] 7.4 10*3/uL Normal 4.4-11.0 [facility] Comment on above: Performed By: #### L 500.2500, L100.0100 ####[facility] [address] [place], [address] Potassiumon 03-23-2025 Potassium [Moles/Vol] 5.2 mmol/L High 3.3-5.1 [facility] Comment on above: Performed By: #### L 501.5600 ####[facility] [address] [place], [address] Bedside Glucoseon 03-22-2025 FINGERSTICK GLU 243 mg/dL High 74-106 [facility] Comment on above: Result Comment: KATARINA GEMENT OF PATIENT CARE PER NURSING PROTOCOL Performed By: #### L 501.080 ####[facility] [address] [place], [address] FINGERSTICK GLU 232 mg/dL High 74-106 [facility] Comment on above: Result Comment: KATARINA GEMENT OF PATIENT CARE PER NURSING PROTOCOL Performed By: #### L 501.080 ####[facility] [address] [place], [address] FINGERSTICK GLU 131 mg/dL High -106 [facility] Comment on above: Result Comment: KATARINA GEMENT OF PATIENT CARE PER NURSING PROTOCOL Performed By: #### L 501.080 ####[facility] [address] [place], [address] FINGERSTICK GLU 139 mg/dL High -106 [facility] Comment on above: Result Comment: KATARINA GEMENT OF PATIENT CARE PER NURSING PROTOCOL Performed By: #### L 501.080 ####[facility] [address] [place], [address] Bilirubin, totalOrdered By: Abigail Foster on 03-22-2025 Bilirubin [Mass/Vol] 0.21 mg/dL 0.00-1.30 [facility] Blood manual differential co mment interpretation (narrative result)Ordered By: Abigail Foster on 03-22-2025 Manual differential comment Daniel (Bld) [Interp] SCANNED [facility] CBC W/Diff, Automatedon 03-01 SMEAR COMMENT SCANNED Normal [facility] Comment on above: Performed By: #### L 100.0100, L500.4050 ####[facility] [address] [place], [address] Comprehensive Metabolic Prof ilon 03-22-2025 Albumin [Mass/Vol] 3.0 g/dL Low 3.4-4.8 [facility] Comment on above: Performed By: #### L 100.0100, L500.4050 ####[facility] [address] [place], [address] Albumin/Globulin [Mass ratio] 1.0 {ratio} Normal 0.9-2.4 [facility] Comment on above: Performed By: #### L 100.0100, L500.4050 ####[facility] [address] [place], [address] ALK PHOS 68 U/L Normal 35-104 [facility] Comment on above: Performed By: #### L 100.0100, L500.4050 ####[facility] [address] [place], [address] ALT [Catalytic activity/Vol] 8 U/L Normal <=34 [facility] Comment on above: Performed By: #### L 100.0100, L500.4050 ####[facility] [address] [place], [address] AST [Catalytic activity/Vol] 19 U/L Normal <=31 [facility] Comment on above: Performed By: #### L 100.0100, L500.4050 ####[facility] [address] [place], [address] Bilirubin [Mass/Vol] 0.21 mg/dL Normal 0.00-1.30 [facility] Comment on above: Performed By: #### L 100.0100, L500.4050 ####[facility] [address] [place], [address] BUN/CRE 18.4 RATIO Normal 10-20 [facility] Comment on above: Performed By: #### L 100.0100, L500.4050 ####[facility] [address] [place], [address] Calcium [Mass/Vol] 10.0 mg/dL Normal 7.6-11.0 [facility] Comment on above: Performed By: #### L 100.0100, L500.4050 ####[facility] [address] [place], [address] Chloride [Moles/Vol] 100 mmol/L Normal 98-108 [facility] Comment on above: Performed By: #### L 100.0100, L500.4050 ####[facility] [address] [place], [address] CO2 [Moles/Vol] 25.4 mmol/L Normal 21.0-32.0 [facility] Comment on above: Performed By: #### L 100.0100, L500.4050 ####[facility] [address] [place], [address] Creatinine [Mass/Vol] 0.93 mg/dL Normal 0.70-1.20 [facility] Comment on above: Performed By: #### L 100.0100, L500.4050 ####[facility] [address] [place], [address] ECRCL 44.58 ml/min Low 50-250 [facility] Comment on above: Performed By: #### L 100.0100, L500.4050 ####[facility] [address] [place], [address] GAP 10 Normal 5-15 [facility] Comment on above: Performed By: #### L 100.0100, L500.4050 ####[facility] [address] [place], [address] GFR/1.73 sq M.predicted among non-blacks MDRD (S/P/Bld) [Vol rate/Area] 62 mL/min/{1.73_m2} Normal >60 [facility] Comment on above: Result Comment: mL/m in/1.73m2 CKD-EPI Creatinine Equation (2020) Performed By: #### L 100.0100, L500.4050 ####[facility] [address] [place], [address] Globulin (S) [Mass/Vol] 3.1 g/dL Normal 2.2-4.2 [facility] Comment on above: Performed By: #### L 100.0100, L500.4050 ####[facility] [address] [place], [address] Glucose [Mass/Vol] 144 mg/dL High 70-99 [facility] Comment on above: Performed By: #### L 100.0100, L500.4050 ####[facility] [address] [place], [address] Potassium [Moles/Vol] 4.2 mmol/L Normal 3.3-5.1 [facility] Comment on above: Performed By: #### L 100.0100, L500.4050 ####[facility] [address] [place], [address] Sodium [Moles/Vol] 135 mmol/L Normal 133-145 [facility] Comment on above: Performed By: #### L 100.0100, L500.4050 ####[facility] [address] [place], [address] T PROT 6.1 g/dL Normal 5.9-8.4 [facility] Comment on above: Performed By: #### L 100.0100, L500.4050 ####[facility] [address] [place], [address] Urea nitrogen [Mass/Vol] 17 mg/dL Normal 4-19 [facility] Comment on above: Performed By: #### L 100.0100, L500.4050 ####[facility] [address] [place], [address] No Panel InformationOrdered By: Abigail Foster on 03-22-2025 19 U/L <32 [facility] Serum globulin measurementOr dered By: Abigail Foster on 03-22-2025 Globulin (S) [Mass/Vol] 3.1 g/dL 2.2-4.2 [facility] Serum or plasma alanine kelley otransferase (ALT) measurementOrdered By: Abigail Kristin on 03-22-2025 ALT [Catalytic activity/Vol] 8 U/L <35 [facility] Serum or plasma albumin melanie urement (mass/volume)Ordered By: Abigail Kristin on 03-22-2025 Albumin [Mass/Vol] 3.0 g/dL Low 3.4-4.8 [facility] Serum or plasma albumin/glob ulin mass ratioOrdered By: Abigail Kristin on 03-22-2025 Albumin/Globulin [Mass ratio] 1.0 {ratio} 0.9-2.4 [facility] Serum or plasma alkaline lissa sphatase measurementOrdered By: Abigail Foster on 03-22-2025 ALP [Catalytic activity/Vol] 68 U/L 35-104 [facility] Total proteinOrdered By: Aut [facility] Kristin on 03-22-2025 Protein [Mass/Vol] 6.1 g/dL 5.9-8.4 [facility] Abdomen/Pelvis W IV Cont ONL Yon 03-21-2025 Abdomen/Pelvis W IV Cont ONLY Normal [facility] Absolute lymphocyte countOrd ered By: Noé Currie on 03-21-2025 Lymphocytes Auto (Unsp spec) [#/Vol] 2.26 10*3/uL 0.83-4.51 [facility] Anion gap in Serum or Plasma Ordered By: Noé Currie on 03-21-2025 Anion gap [Moles/Vol] 13 mmol/L 5-15 [facility] Automated lymphocyte count a s percentage of total leukocytesOrdered By: Noé Currie on 03-21-2025 Lymphocytes/100 WBC Auto (Unsp spec) 27.1 % 19-41 [facility] BUN/creatinine ratioOrdered By: Noé Currie on 03-21-2025 Urea nitrogen/Creatinine [Mass ratio] 18.2 mg/mg 10-20 [facility] Basic Metabolic Profile (BMP )on 03-21-2025 BUN/CRE 18.2 RATIO Normal 10-20 [facility] Comment on above: Performed By: #### L 500.2500, L100.0100 ####[facility] [address] [place], [address] Calcium [Mass/Vol] 10.5 mg/dL Normal 7.6-11.0 [facility] Comment on above: Performed By: #### L 500.2500, L100.0100 ####[facility] [address] [place], [address] Chloride [Moles/Vol] 98 mmol/L Normal 98-108 [facility] Comment on above: Performed By: #### L 500.2500, L100.0100 ####[facility] [address] [place], [address] CO2 [Moles/Vol] 26.4 mmol/L Normal 21.0-32.0 [facility] Comment on above: Performed By: #### L 500.2500, L100.0100 ####[facility] [address] [place], [address] Creatinine [Mass/Vol] 1.00 mg/dL Normal 0.70-1.20 [facility] Comment on above: Performed By: #### L 500.2500, L100.0100 ####[facility] [address] [place], [address] ECRCL 41.62 ml/min Low 50-250 [facility] Comment on above: Performed By: #### L 500.2500, L100.0100 ####[facility] [address] [place], [address] GAP 13 Normal 5-15 [facility] Comment on above: Performed By: #### L 500.2500, L100.0100 ####[facility] [address] [place], [address] GFR/1.73 sq M.predicted among non-blacks MDRD (S/P/Bld) [Vol rate/Area] 57 mL/min/{1.73_m2} Low >60 [facility] Comment on above: Result Comment: mL/m in/1.73m2 CKD-EPI Creatinine Equation (2020) Performed By: #### L 500.2500, L100.0100 ####[facility] [address] [place], [address] Glucose [Mass/Vol] 128 mg/dL High 70-99 [facility] Comment on above: Performed By: #### L 500.2500, L100.0100 ####[facility] [address] [place], [address] Potassium [Moles/Vol] 4.4 mmol/L Normal 3.3-5.1 [facility] Comment on above: Result Comment: Hemo lysis present, Results??could be affected.?? Performed By: #### L 500.2500, L100.0100 ####[facility] [address] [place], [address] Sodium [Moles/Vol] 137 mmol/L Normal 133-145 [facility] Comment on above: Performed By: #### L 500.2500, L100.0100 ####[facility] [address] [place], [address] Urea nitrogen [Mass/Vol] 18 mg/dL Normal 4-19 [facility] Comment on above: Performed By: #### L 500.2500, L100.0100 ####[facility] [address] [place], [address] Basophil percentageOrdered B y: Noé Currie on 03-21-2025 Basophils/100 WBC (Bld) 0.7 % 0-1 [facility] Bedside Glucoseon 03-21-2025 FINGERSTICK GLU 114 mg/dL High 74-106 [facility] Comment on above: Result Comment: KATARINA GARY OF PATIENT CARE PER NURSING PROTOCOL Performed By: #### L 501.080 ####[facility] [address] [place], [address] Bilirubin Test strip Ql (U)O rdered By: Ethan Suarez on 03-21-2025 Bilirubin Ql (U) Negative Negative [facility] CBC W/Diff, Automatedon 03-01 Absolute Lymph 2.26 X10 3/uL Normal 0.83-4.51 [facility] Comment on above: Performed By: #### L 500.2500, L100.0100 ####[facility] [address] [place], [address] Absolute Neut 5.2 X10 3/uL Normal 2.0-7.7 [facility] Comment on above: Performed By: #### L 500.2500, L100.0100 ####[facility] [address] [place], [address] Basophils/100 WBC (Bld) 0.7 % Normal 0-1 [facility] Comment on above: Performed By: #### L 500.2500, L100.0100 ####[facility] [address] [place], [address] Eosinophils/100 WBC (Bld) 0.8 % Normal 0-5 [facility] Comment on above: Performed By: #### L 500.2500, L100.0100 ####[facility] [address] [place], [address] Erythrocyte distribution width (RBC) [Ratio] 16.4 % High 11.6-14.6 [facility] Comment on above: Performed By: #### L 500.2500, L100.0100 ####[facility] [address] [place], [address] Hematocrit (Bld) [Volume fraction] 31.3 % Low 37-47 [facility] Comment on above: Performed By: #### L 500.2500, L100.0100 ####[facility] [address] [place], [address] Hemoglobin (Bld) [Mass/Vol] 9.7 g/dL Low 12.0-15.0 [facility] Comment on above: Performed By: #### L 500.2500, L100.0100 ####[facility] [address] [place], [address] IG% 0.500 Normal 0.0-0.9 [facility] Comment on above: Result Comment: IG% - Immature Granulocytes (promyelocytes, myelocytes andmetamyelocytes) > 1% indicates that a LEFT SHIFT is Present. Performed By: #### L 500.2500, L100.0100 ####[facility] [address] [place], [address] Lymphocytes/100 WBC (Bld) 27.1 % Normal 19-41 [facility] Comment on above: Performed By: #### L 500.2500, L100.0100 ####[facility] [address] [place], [address] MCH (RBC) [Entitic mass] 27.0 pg Normal 27.0-32.0 [facility] Comment on above: Performed By: #### L 500.2500, L100.0100 ####[facility] [address] [place], [address] MCHC (RBC) [Mass/Vol] 31.0 g/dL Low 32-36 [facility] Comment on above: Performed By: #### L 500.2500, L100.0100 ####[facility] [address] [place], [address] MCV (RBC) [Entitic vol] 87.2 fL Normal 81-99 [facility] Comment on above: Performed By: #### L 500.2500, L100.0100 ####[facility] [address] [place], [address] Monocytes/100 WBC (Bld) 8.6 % Normal 0-10 [facility] Comment on above: Performed By: #### L 500.2500, L100.0100 ####[facility] [address] [place], [address] Neutrophils/100 WBC (Bld) 62.3 % Normal 47-70 [facility] Comment on above: Performed By: #### L 500.2500, L100.0100 ####[facility] [address] [place], [address] Nucleated RBC (Bld) [#/Vol] 0 10*3/uL Normal 0-5 [facility] Comment on above: Performed By: #### L 500.2500, L100.0100 ####[facility] [address] [place], [address] Platelet mean volume (Bld) [Entitic vol] 11.1 fL Normal 6.2-12.0 [facility] Comment on above: Performed By: #### L 500.2500, L100.0100 ####[facility] [address] [place], [address] Platelets (Bld) [#/Vol] 304 10*3/uL Normal 150-450 [facility] Comment on above: Performed By: #### L 500.2500, L100.0100 ####[facility] [address] [place], [address] RBC (Bld) [#/Vol] 3.59 10*6/uL Low 4.2-5.4 [facility] Comment on above: Performed By: #### L 500.2500, L100.0100 ####[facility] [address] [place], [address] RDW SD 52.5 fl High 35.1-43.9 [facility] Comment on above: Performed By: #### L 500.2500, L100.0100 ####[facility] [address] [place], [address] WBC (Bld) [#/Vol] 8.4 10*3/uL Normal 4.4-11.0 [facility] Comment on above: Performed By: #### L 500.2500, L100.0100 ####[facility] [address] [place], [address] Carbon dioxide, total [Moles /volume] in Central venous bloodOrdered By: Noé Currie on 03-21-2025 CO2 [Moles/Vol] 26.4 mmol/L 21.0-32.0 [facility] Chloride assayOrdered By: Natividad Currie on 03-21-2025 Chloride [Moles/Vol] 98 mmol/L 98-108 [facility] Emergency Department Summary on 03-21-2025 Emergency Department Summary Normal [facility] Eosinophil percentageOrdered By: Noé Currie on 03-21-2025 Eosinophils/100 WBC (Bld) 0.8 % 0-5 [facility] Erythrocyte distribution wid th ratioOrdered By: Noé Currie on 03-21-2025 Erythrocyte distribution width (RBC) [Ratio] 16.4 % High 11.6-14.6 [facility] Erythrocyte distribution wid th standard deviationOrdered By: Noé Currie on 03-21-2025 Erythrocyte distribution width (RBC) [Ratio] 52.5 fl High 35.1-43.9 [facility] Glomerular filtration rate ( GFR) estimation/1.73 sq m using serum, plasma, or whole bOrdered By: Noé Currie on 03-21-2025 GFR/1.73 sq M.predicted among non-blacks MDRD (S/P/Bld) [Vol rate/Area] 57 mL/min/{1.73_m2} Low >60 [facility] Glucose measurement at bedsi deOrdered By: Noé Currie on 03-21-2025 Glucose [Mass/Vol] 114 mg/dL High 74-106 [facility] H AND P Exam - Hospitaliston 03-21-2025 H&P Exam - Hospitalist Normal [facility] Hematocrit Auto (Bld) [Volum e fraction]Ordered By: Noé Currie on 03-21-2025 Hematocrit (Bld) [Volume fraction] 31.3 % Low 37-47 [facility] Hemoglobin measurementOrdere d By: Noé Currie on 03-21-2025 Hemoglobin (Bld) [Mass/Vol] 9.7 g/dL Low 12.0-15.0 [facility] Immature granulocytes/100 WB C Auto (Bld)Ordered By: Noé Currie on 03-21-2025 Immature granulocytes/100 WBC (Bld) 0.500 % 0.0-0.9 [facility] Ketones Test strip Ql (U)Ord ered By: Ethan Suarez on 03-21-2025 Ketones Ql (U) Negative Negative [facility] MCV (mean corpuscular volume ) determinationOrdered By: Noé Currie on 03-21-2025 MCV (RBC) [Entitic vol] 87.2 fL 81-99 [facility] Mean corpuscular hemoglobin (MCH) determinationOrdered By: Noé Currie on 03-21-2025 MCH (RBC) [Entitic mass] 27.0 pg 27.0-32.0 [facility] Monocyte percentageOrdered B y: Noé Currie on 03-21-2025 Monocytes/100 WBC (Bld) 8.6 % 0-10 [facility] Mucus LM Ql (Urine sed)Order ed By: Ethan Suarez on 03-21-2025 Mucus Ql (Urine sed) 0 SEEN /hpf [facility] Neutrophil percentageOrdered By: Noé Currie on 03-21-2025 Neutrophils/100 WBC (Bld) 62.3 % 47-70 [facility] Nitrite Test strip Ql (U)Ord ered By: Ethan Suarez on 03-21-2025 Nitrite Ql (U) Negative Negative [facility] Platelet countOrdered By: Natividad Currie on 03-21-2025 Platelets (Bld) [#/Vol] 304 10*3/uL 150-450 [facility] Potassium measurement (mass/ volume)Ordered By: Noé Currie on 03-21-2025 Potassium (Unsp spec) [Mass/Vol] 4.4 mmol/L 3.3-5.1 [facility] Protein Test strip Ql (U)Ord ered By: Ethan Suarez on 03-21-2025 Protein Ql (U) 30 mg/dl High Negative [facility] RBC Auto (Bld) [#/Vol]Ordere d By: Noé Currie on 03-21-2025 RBC (Bld) [#/Vol] 3.59 10*6/uL Low 4.2-5.4 [facility] Serum creatinine measurement (mass/volume)Ordered By: Noé Currie on 03-21-2025 Creatinine [Mass/Vol] 1.00 mg/dL 0.70-1.20 [facility] Serum glucose measurement (m ass/volume)Ordered By: Noé Currie on 03-21-2025 Glucose [Mass/Vol] 128 mg/dL High 70-99 [facility] Serum or plasma calcium melanie urement (mass/volume)Ordered By: Noé Currie on 03-21-2025 Calcium [Mass/Vol] 10.5 mg/dL 7.6-11.0 [facility] Serum or plasma urea nitroge n measurement (mass/volume)Ordered By: Noé Currie on 03-21-2025 Urea nitrogen [Mass/Vol] 18 mg/dL 4-19 [facility] Sodium levelOrdered By: Savage Currie on 03-21-2025 Sodium [Moles/Vol] 137 mmol/L 133-145 [facility] Spine Lumbar without Contras ton 03-21-2025 Spine Lumbar without Contrast Normal [facility] Squamous epithelial cells de tection in urine sediment by light microscopyOrdered By: Ethan Suarez on 03-21-2025 Epithelial cells.squamous LM Ql (Urine sed) 0-5 SEEN /hpf 5-10 [facility] Urinalysis, Completeon 03-21 BACTERIA 1+ /hpf Normal None Seen [facility] Comment on above: Order Comment: COLLE CTOR TO SPECIFY Performed By: #### L 400.0001 ####[facility] [address] [place], [address] RBC 0-5 SEEN Normal 0-5 [facility] Comment on above: Order Comment: MARSHALL CTOR TO SPECIFY Performed By: #### L 400.0001 ####[facility] [address] [place], [address] YEAST 1+ /hpf Normal None Seen [facility] Comment on above: Order Comment: MARSHALL CTOR TO SPECIFY Performed By: #### L 400.0001 ####[facility] [address] [place], [address] EPI,SQUAMOUS 0-5 SEEN Normal 5-10 [facility] Comment on above: Order Comment: MARSHALL CTOR TO SPECIFY Performed By: #### L 400.0001 ####[facility] [address] [place], [address] WBC >100 SEEN Normal 0-5 [facility] Comment on above: Order Comment: MARSHALL CTOR TO SPECIFY Performed By: #### L 400.0001 ####[facility] [address] [place], [address] Mucus Ql (Urine sed) 0 SEEN Normal [facility] Comment on above: Order Comment: MARSHALL CTOR TO SPECIFY Performed By: #### L 400.0001 ####[facility] [address] [place], [address] Urine clarityOrdered By: Robb Suarez on 03-21-2025 Clarity (U) Sl. Cloudy Clear [facility] Urine color determinationOrd ered By: Ethan Suarez on 03-21-2025 Color (U) Yellow Yellow [facility] Urine cultureOrdered By: Robb Suarez on 03-21-2025 Bacteria identified Cx Nom (U) Staphylococcus epidermidis Abnormal [facility] Urine glucose detectionOrder ed By: Ethan Suarez on 03-21-2025 Glucose Ql (U) 1000 mg/dl High Normal [facility] Urine leukocyte esterase det ection by dipstickOrdered By: Ethan Suarez on 03-21-2025 Leukocyte esterase Test strip Ql (U) 500 /ul High Negative [facility] Urine pHOrdered By: Ethan Suarez on 03-21-2025 pH (U) 7.0 [pH] 5.0 - 8.0 [facility] Urine sediment bacteria coun t by microscopy (number/high power field)Ordered By: Ethan Suarez on 03-21-2025 Bacteria LM.HPF (Urine sed) [#/Area] 1 /[HPF] None Seen [facility] Urine sediment yeast count b y microscopy (number/high powered field)Ordered By: Ethan Suarez on 03-21-2025 Yeast LM.HPF (Urine sed) [#/Area] 1 /[HPF] None Seen [facility] Urine specific gravity measu rementOrdered By: Ethan Suarez on 03-21-2025 Specific gravity (U) [Rel density] 1.010 1.002-1.030 [facility] Urine urobilinogen measureme ntOrdered By: Ethan Suarez on 03-21-2025 Urobilinogen Ql (U) Normal mg/dl Normal [facility] White blood cell (WBC) count Ordered By: Noé Currie on 03-21-2025 WBC (Bld) [#/Vol] 8.4 10*3/uL 4.4-11.0 [facility] White blood cell countOrdere d By: Ethan Suarez on 03-21-2025 White blood cell count >100 SEEN /hpf 0-5 [facility] Culture, Blood (WB)on 2024 CUB Blood cultures x2, from two different sites No growth in 5 days. Normal [facility] Comment on above: Performed By: #### L 500.4050, L300.3900, L300.4310, L100.0100, L503.6005, M200.1000 ####[facility] [address] [place], [place], [id number] Cardiovascular stress test r eportOrdered By: Se Good on 03-07-2025 Study report [facility] Work Phone: Stress Reporton 03-07-2025 Stress Report Normal [facility] Urine Cultureon 03-06-2025 URC Normal [facility] Comment on above: Performed By: #### L 400.0001, M100.2200 ####[facility] [address] [place], [address] 12 Lead EKGon 03-04-2025 12 Lead EKG Normal [facility] Abdomen/Pelvis W IV Cont ONL Yon 03-04-2025 Abdomen/Pelvis W IV Cont ONLY Normal [facility] Absolute lymphocyte countOrd ered By: Jeevan Yoder on 03-04-2025 Lymphocytes Auto (Unsp spec) [#/Vol] 1.75 10*3/uL 0.83-4.51 [facility] Activated partial thrombopla stin time (aPTT) in platelet poor plasma by coagulation aOrdered By: Jeevan Yoder on 03-04-2025 aPTT Coag (PPP) [Time] 25.2 s 24.1-36.2 [facility] Amorphous sediment detection in urine sediment by light microscopyOrdered By: Jeevan Ydoer on 03-04-2025 Amorphous sediment LM Ql (Urine sed) 3+ [facility] Anion gap in Serum or Plasma Ordered By: Jeevan Yoder on 03-04-2025 Anion gap [Moles/Vol] 11 mmol/L 5-15 [facility] Automated lymphocyte count a s percentage of total leukocytesOrdered By: Jeevan Yoder on 03-04-2025 Lymphocytes/100 WBC Auto (Unsp spec) 24.2 % 19-41 [facility] BUN/creatinine ratioOrdered By: Jeevan Yoder on 03-04-2025 Urea nitrogen/Creatinine [Mass ratio] 18.1 mg/mg 10-20 [facility] Basophil percentageOrdered B y: Jeevan Yoder on 03-04-2025 Basophils/100 WBC (Bld) 0.4 % 0-1 [facility] Bilirubin Test strip Ql (U)O rdered By: Jeevan Yoder on 03-04-2025 Bilirubin Ql (U) Negative Negative [facility] Bilirubin, totalOrdered By: Jeevan Yoder on 03-04-2025 Bilirubin [Mass/Vol] 0.25 mg/dL 0.00-1.30 [facility] Blood cultureOrdered By: Maeve Yoder on 03-04-2025 Bacteria identified Cx Nom (Bld) No growth in 5 days. [facility] Bacteria identified Cx Nom (Bld) No growth in 5 days. [facility] CBC W/Diff, Automatedon 07-0 Absolute Lymph 1.75 X10 3/uL Normal 0.83-4.51 [facility] Comment on above: Performed By: #### L 500.4050, L300.3900, L300.4310, L100.0100, L503.6005, M200.1000 ####[facility] [address] [place], [address] Absolute Neut 4.8 X10 3/uL Normal 2.0-7.7 [facility] Comment on above: Performed By: #### L 500.4050, L300.3900, L300.4310, L100.0100, L503.6005, M200.1000 ####[facility] [address] [place], [address] Basophils/100 WBC (Bld) 0.4 % Normal 0-1 [facility] Comment on above: Performed By: #### L 500.4050, L300.3900, L300.4310, L100.0100, L503.6005, M200.1000 ####[facility] [address] [place], [address] Eosinophils/100 WBC (Bld) 1.7 % Normal 0-5 [facility] Comment on above: Performed By: #### L 500.4050, L300.3900, L300.4310, L100.0100, L503.6005, M200.1000 ####[facility] [address] [place], [address] Erythrocyte distribution width (RBC) [Ratio] 16.2 % High 11.6-14.6 [facility] Comment on above: Performed By: #### L 500.4050, L300.3900, L300.4310, L100.0100, L503.6005, M200.1000 ####[facility] [address] [place], [address] Hematocrit (Bld) [Volume fraction] 33.5 % Low 37-47 [facility] Comment on above: Performed By: #### L 500.4050, L300.3900, L300.4310, L100.0100, L503.6005, M200.1000 ####[facility] [address] [place], [address] Hemoglobin (Bld) [Mass/Vol] 10.1 g/dL Low 12.0-15.0 [facility] Comment on above: Performed By: #### L 500.4050, L300.3900, L300.4310, L100.0100, L503.6005, M200.1000 ####[facility] [address] [place], [address] IG% 0.700 Normal 0.0-0.9 [facility] Comment on above: Result Comment: IG% - Immature Granulocytes (promyelocytes, myelocytes andmetamyelocytes) > 1% indicates that a LEFT SHIFT is Present. Performed By: #### L 500.4050, L300.3900, L300.4310, L100.0100, L503.6005, M200.1000 ####[facility] [address] [place], [address] Lymphocytes/100 WBC (Bld) 24.2 % Normal 19-41 [facility] Comment on above: Performed By: #### L 500.4050, L300.3900, L300.4310, L100.0100, L503.6005, M200.1000 ####[facility] [address] [place], [address] MCH (RBC) [Entitic mass] 27.2 pg Normal 27.0-32.0 [facility] Comment on above: Performed By: #### L 500.4050, L300.3900, L300.4310, L100.0100, L503.6005, M200.1000 ####[facility] [address] [place], [address] MCHC (RBC) [Mass/Vol] 30.1 g/dL Low 32-36 [facility] Comment on above: Performed By: #### L 500.4050, L300.3900, L300.4310, L100.0100, L503.6005, M200.1000 ####[facility] [address] [place], [address] MCV (RBC) [Entitic vol] 90.3 fL Normal 81-99 [facility] Comment on above: Performed By: #### L 500.4050, L300.3900, L300.4310, L100.0100, L503.6005, M200.1000 ####[facility] [address] [place], [address] Monocytes/100 WBC (Bld) 6.9 % Normal 0-10 [facility] Comment on above: Performed By: #### L 500.4050, L300.3900, L300.4310, L100.0100, L503.6005, M200.1000 ####[facility] [address] [place], [address] Neutrophils/100 WBC (Bld) 66.1 % Normal 47-70 [facility] Comment on above: Performed By: #### L 500.4050, L300.3900, L300.4310, L100.0100, L503.6005, M200.1000 ####[facility] [address] [place], [address] Nucleated RBC (Bld) [#/Vol] 0 10*3/uL Normal 0-5 [facility] Comment on above: Performed By: #### L 500.4050, L300.3900, L300.4310, L100.0100, L503.6005, M200.1000 ####[facility] [address] [place], [address] Platelet mean volume (Bld) [Entitic vol] 10.6 fL Normal 6.2-12.0 [facility] Comment on above: Performed By: #### L 500.4050, L300.3900, L300.4310, L100.0100, L503.6005, M200.1000 ####[facility] [address] [place], [address] Platelets (Bld) [#/Vol] 334 10*3/uL Normal 150-450 [facility] Comment on above: Performed By: #### L 500.4050, L300.3900, L300.4310, L100.0100, L503.6005, M200.1000 ####[facility] [address] [place], [address] RBC (Bld) [#/Vol] 3.71 10*6/uL Low 4.2-5.4 [facility] Comment on above: Performed By: #### L 500.4050, L300.3900, L300.4310, L100.0100, L503.6005, M200.1000 ####[facility] [address] [place], [address] RDW SD 52.9 fl High 35.1-43.9 [facility] Comment on above: Performed By: #### L 500.4050, L300.3900, L300.4310, L100.0100, L503.6005, M200.1000 ####[facility] [address] [place], [address] WBC (Bld) [#/Vol] 7.2 10*3/uL Normal 4.4-11.0 [facility] Comment on above: Performed By: #### L 500.4050, L300.3900, L300.4310, L100.0100, L503.6005, M200.1000 ####[facility] [address] [place], [address] Carbon dioxide, total [Moles /volume] in Central venous bloodOrdered By: Jeevan Yoder on 03-04-2025 CO2 [Moles/Vol] 29.0 mmol/L 21.0-32.0 [facility] Chloride assayOrdered By: Kenny Yoder on 03-04-2025 Chloride [Moles/Vol] 97 mmol/L Low 98-108 [facility] Comprehensive Metabolic Prof ilon 03-04-2025 Albumin [Mass/Vol] 3.3 g/dL Low 3.4-4.8 [facility] Comment on above: Performed By: #### L 500.4050, L300.3900, L300.4310, L100.0100, L503.6005, M200.1000 ####[facility] [address] [place], [address] Albumin/Globulin [Mass ratio] 0.9 {ratio} Normal 0.9-2.4 [facility] Comment on above: Performed By: #### L 500.4050, L300.3900, L300.4310, L100.0100, L503.6005, M200.1000 ####[facility] [address] [place], [address] ALK PHOS 79 U/L Normal 35-104 [facility] Comment on above: Performed By: #### L 500.4050, L300.3900, L300.4310, L100.0100, L503.6005, M200.1000 ####[facility] [address] [place], [address] ALT [Catalytic activity/Vol] 25 U/L Normal <=34 [facility] Comment on above: Performed By: #### L 500.4050, L300.3900, L300.4310, L100.0100, L503.6005, M200.1000 ####[facility] [address] [place], [address] AST [Catalytic activity/Vol] 26 U/L Normal <=31 [facility] Comment on above: Performed By: #### L 500.4050, L300.3900, L300.4310, L100.0100, L503.6005, M200.1000 ####[facility] [address] [place], [address] Bilirubin [Mass/Vol] 0.25 mg/dL Normal 0.00-1.30 [facility] Comment on above: Performed By: #### L 500.4050, L300.3900, L300.4310, L100.0100, L503.6005, M200.1000 ####[facility] [address] [place], [address] BUN/CRE 18.1 RATIO Normal 10-20 [facility] Comment on above: Performed By: #### L 500.4050, L300.3900, L300.4310, L100.0100, L503.6005, M200.1000 ####[facility] [address] [place], [address] Calcium [Mass/Vol] 10.7 mg/dL Normal 7.6-11.0 [facility] Comment on above: Performed By: #### L 500.4050, L300.3900, L300.4310, L100.0100, L503.6005, M200.1000 ####[facility] [address] [place], [address] Chloride [Moles/Vol] 97 mmol/L Low 98-108 [facility] Comment on above: Performed By: #### L 500.4050, L300.3900, L300.4310, L100.0100, L503.6005, M200.1000 ####[facility] [address] [place], [address] CO2 [Moles/Vol] 29.0 mmol/L Normal 21.0-32.0 [facility] Comment on above: Performed By: #### L 500.4050, L300.3900, L300.4310, L100.0100, L503.6005, M200.1000 ####[facility] [address] [place], [address] Creatinine [Mass/Vol] 1.29 mg/dL High 0.70-1.20 [facility] Comment on above: Performed By: #### L 500.4050, L300.3900, L300.4310, L100.0100, L503.6005, M200.1000 ####[facility] [address] [place], [address] ECRCL 32.46 ml/min Low 50-250 [facility] Comment on above: Performed By: #### L 500.4050, L300.3900, L300.4310, L100.0100, L503.6005, M200.1000 ####[facility] [address] [place], [address] GAP 11 Normal 5-15 [facility] Comment on above: Performed By: #### L 500.4050, L300.3900, L300.4310, L100.0100, L503.6005, M200.1000 ####[facility] [address] [place], [address] GFR/1.73 sq M.predicted among non-blacks MDRD (S/P/Bld) [Vol rate/Area] 42 mL/min/{1.73_m2} Low >60 [facility] Comment on above: Result Comment: mL/m in/1.73m2 CKD-EPI Creatinine Equation (2020) Performed By: #### L 500.4050, L300.3900, L300.4310, L100.0100, L503.6005, M200.1000 ####[facility] [address] [place], [address] Globulin (S) [Mass/Vol] 3.6 g/dL Normal 2.2-4.2 [facility] Comment on above: Performed By: #### L 500.4050, L300.3900, L300.4310, L100.0100, L503.6005, M200.1000 ####[facility] [address] [place], [address] Glucose [Mass/Vol] 116 mg/dL High 70-99 [facility] Comment on above: Performed By: #### L 500.4050, L300.3900, L300.4310, L100.0100, L503.6005, M200.1000 ####[facility] [address] [place], [address] Potassium [Moles/Vol] 5.0 mmol/L Normal 3.3-5.1 [facility] Comment on above: Performed By: #### L 500.4050, L300.3900, L300.4310, L100.0100, L503.6005, M200.1000 ####[facility] [address] [place], [address] Sodium [Moles/Vol] 136 mmol/L Normal 133-145 [facility] Comment on above: Performed By: #### L 500.4050, L300.3900, L300.4310, L100.0100, L503.6005, M200.1000 ####[facility] [address] [place], [address] T PROT 6.9 g/dL Normal 5.9-8.4 [facility] Comment on above: Performed By: #### L 500.4050, L300.3900, L300.4310, L100.0100, L503.6005, M200.1000 ####[facility] [address] [place], [address] Urea nitrogen [Mass/Vol] 23 mg/dL High 4-19 [facility] Comment on above: Performed By: #### L 500.4050, L300.3900, L300.4310, L100.0100, L503.6005, M200.1000 ####[facility] [address] [place], [place], [id number] Emergency Department Summary on 03-04-2025 Emergency Department Summary Normal [facility] Eosinophil percentageOrdered By: Jeevan Yoder on 03-04-2025 Eosinophils/100 WBC (Bld) 1.7 % 0-5 [facility] Erythrocyte distribution wid th ratioOrdered By: Jeevan Yoder on 03-04-2025 Erythrocyte distribution width (RBC) [Ratio] 16.2 % High 11.6-14.6 [facility] Erythrocyte distribution wid th standard deviationOrdered By: Jeevan Yoder on 03-04-2025 Erythrocyte distribution width (RBC) [Ratio] 52.9 fl High 35.1-43.9 [facility] Glomerular filtration rate ( GFR) estimation/1.73 sq m using serum, plasma, or whole bOrdered By: Jeevan Yoder on 03-04-2025 GFR/1.73 sq M.predicted among non-blacks MDRD (S/P/Bld) [Vol rate/Area] 42 mL/min/{1.73_m2} Low >60 [facility] Hematocrit Auto (Bld) [Volum e fraction]Ordered By: Jeevan Yoder on 03-04-2025 Hematocrit (Bld) [Volume fraction] 33.5 % Low 37-47 [facility] Hemoglobin measurementOrdere d By: Jeevan Yoder on 03-04-2025 Hemoglobin (Bld) [Mass/Vol] 10.1 g/dL Low 12.0-15.0 [facility] Immature granulocytes/100 WB C Auto (Bld)Ordered By: Jeevan Yoder on 03-04-2025 Immature granulocytes/100 WBC (Bld) 0.700 % 0.0-0.9 [facility] Ketones Test strip Ql (U)Ord ered By: Jeevan Yoder on 03-04-2025 Ketones Ql (U) 5 mg/dl High Negative [facility] Lactic Acidon 03-04-2025 Lactate [Moles/Vol] 2.0 mmol/L Normal 0.0-2.0 [facility] Comment on above: Order Comment: Y Result Comment: Crit ical Result(s) Called at: 2056 by:??ARCHIE LOVE Results read back by same. Performed By: #### L 500.4050, L300.3900, L300.4310, L100.0100, L503.6005, M200.1000 ####[facility] [address] [facility] [place], [address] MCV (mean corpuscular volume ) determinationOrdered By: Jeevan Yoder on 03-04-2025 MCV (RBC) [Entitic vol] 90.3 fL 81-99 [facility] Mean corpuscular hemoglobin (MCH) determinationOrdered By: Jeevan Yoder on 03-04-2025 MCH (RBC) [Entitic mass] 27.2 pg 27.0-32.0 [facility] Monocyte percentageOrdered B y: Jeevan Yoder on 03-04-2025 Monocytes/100 WBC (Bld) 6.9 % 0-10 [facility] Mucus LM Ql (Urine sed)Order ed By: Jeevan Yoder on 03-04-2025 Mucus Ql (Urine sed) 0 SEEN /hpf [facility] Neutrophil percentageOrdered By: Jeevan Yoder on 03-04-2025 Neutrophils/100 WBC (Bld) 66.1 % 47-70 [facility] Nitrite Test strip Ql (U)Ord ered By: Jeevan Yoder on 03-04-2025 Nitrite Ql (U) Negative Negative [facility] No Panel InformationOrdered By: Jeevan Yoder on 03-04-2025 26 U/L <32 [facility] Partial Thromboplast Timeon 03-04-2025 aPTT Coag (Bld) [Time] 25.2 s Normal 24.1-36.2 [facility] Comment on above: Performed By: #### L 500.4050, L300.3900, L300.4310, L100.0100, L503.6005, M200.1000 ####[facility] [address], [address] Platelet countOrdered By: Kenny Yoder on 03-04-2025 Platelets (Bld) [#/Vol] 334 10*3/uL 150-450 [facility] Potassium measurement (mass/ volume)Ordered By: Jeevan Yoder on 03-04-2025 Potassium (Unsp spec) [Mass/Vol] 5.0 mmol/L 3.3-5.1 [facility] Protein Test strip Ql (U)Ord ered By: Jeevan Yoder on 03-04-2025 Protein Ql (U) 100 mg/dl High Negative [facility] Prothrombin Time w/INRon INR Coag (PPP) [Relative time] 1.0 {INR} Normal [facility] Comment on above: Performed By: #### L 500.4050, L300.3900, L300.4310, L100.0100, L503.6005, M200.1000 ####[facility] [address] [place], [address] PT Coag (PPP) [Time] 13.8 s Normal 11.7-14.9 [facility] Comment on above: Performed By: #### L 500.4050, L300.3900, L300.4310, L100.0100, L503.6005, M200.1000 ####[facility] [address] [place], [address] Prothrombin timeOrdered By: Jeevan Yoder on 03-04-2025 PT Coag (PPP) [Time] 13.8 s 11.7-14.9 [facility] RBC Auto (Bld) [#/Vol]Ordere d By: Jeevan Yoder on 03-04-2025 RBC (Bld) [#/Vol] 3.71 10*6/uL Low 4.2-5.4 [facility] Serum creatinine measurement (mass/volume)Ordered By: Jeevan Yoder on 03-04-2025 Creatinine [Mass/Vol] 1.29 mg/dL High 0.70-1.20 [facility] Serum globulin measurementOr dered By: Jeevan Yoder on 03-04-2025 Globulin (S) [Mass/Vol] 3.6 g/dL 2.2-4.2 [facility] Serum glucose measurement (m ass/volume)Ordered By: Jeevan Yoder on 03-04-2025 Glucose [Mass/Vol] 116 mg/dL High 70-99 [facility] Serum or plasma alanine kelley otransferase (ALT) measurementOrdered By: Jeevan Yoder on 03-04-2025 ALT [Catalytic activity/Vol] 25 U/L <35 [facility] Serum or plasma albumin melanie urement (mass/volume)Ordered By: Jeevan Yoder on 03-04-2025 Albumin [Mass/Vol] 3.3 g/dL Low 3.4-4.8 [facility] Serum or plasma albumin/glob ulin mass ratioOrdered By: Jeevan Yoder on 03-04-2025 Albumin/Globulin [Mass ratio] 0.9 {ratio} 0.9-2.4 [facility] Serum or plasma alkaline lissa sphatase measurementOrdered By: Jeevan Yoder on 03-04-2025 ALP [Catalytic activity/Vol] 79 U/L 35-104 [facility] Serum or plasma calcium melanie urement (mass/volume)Ordered By: Jeevan Yoder on 03-04-2025 Calcium [Mass/Vol] 10.7 mg/dL 7.6-11.0 [facility] Serum or plasma urea nitroge n measurement (mass/volume)Ordered By: Jeevan Yoder on 03-04-2025 Urea nitrogen [Mass/Vol] 23 mg/dL High 4-19 [facility] Sodium levelOrdered By: Marcelino Yoder on 03-04-2025 Sodium [Moles/Vol] 136 mmol/L 133-145 [facility] Squamous epithelial cells de tection in urine sediment by light microscopyOrdered By: Jeevan Yoder on 03-04-2025 Epithelial cells.squamous LM Ql (Urine sed) 0-5 SEEN /hpf 5-10 [facility] Total proteinOrdered By: Maeve Yoder on 03-04-2025 Protein [Mass/Vol] 6.9 g/dL 5.9-8.4 [facility] Urinalysis, Completeon 03-04 BACTERIA 4+ /hpf Normal None Seen [facility] Comment on above: Order Comment: MARSHALL CTOR TO SPECIFY Performed By: #### L 400.0001, M100.2200 ####[facility] [address] [place], [address] EPI,SQUAMOUS 0-5 SEEN Normal 5-10 [facility] Comment on above: Order Comment: MARSHALL CTOR TO SPECIFY Performed By: #### L 400.0001, M1.0 ####[facility] [address] [place], [address] RBC 0-5 SEEN Normal 0-5 [facility] Comment on above: Order Comment: MARSHALL CTOR TO SPECIFY Performed By: #### L 400.0001, M100.2200 ####[facility] [address] [place], [address] YEAST 2+ /hpf Normal None Seen [facility] Comment on above: Order Comment: MARSHALL CTOR TO SPECIFY Performed By: #### L 400.0001, M100.0 ####[facility] [address] [place], [address] AMORPHOUS 3+ Normal [facility] Comment on above: Order Comment: MARSHALL CTOR TO SPECIFY Performed By: #### L 400.0001, M100.2200 ####[facility] [address] [place], [address] WBC 25-50 SEEN Normal 0-5 [facility] Comment on above: Order Comment: COLLE CTOR TO SPECIFY Performed By: #### L 400.0001, M100.0 ####[facility] [address] [place], [address] Mucus Ql (Urine sed) 0 SEEN Normal [facility] Comment on above: Order Comment: MARSHALL CTOR TO SPECIFY Performed By: #### L 400.0001, M100.2200 ####[facility] [address] [place], [address] Urine clarityOrdered By: Maeve Yoder on 03-04-2025 Clarity (U) Cloudy Clear [facility] Urine color determinationOrd ered By: Jeevan Yoder on 03-04-2025 Color (U) Straw Yellow [facility] Urine cultureOrdered By: Maeve Yoder on 03-04-2025 Bacteria identified Cx Nom (U) Enterococcus faecalis Abnormal [facility] Urine glucose detectionOrder ed By: Jeevan Yoder on 03-04-2025 Glucose Ql (U) 100 mg/dl High Normal [facility] Urine leukocyte esterase det ection by dipstickOrdered By: Jeevan Yoder on 03-04-2025 Leukocyte esterase Test strip Ql (U) 500 /ul High Negative [facility] Urine pHOrdered By: Jeevan rai on 03-04-2025 pH (U) 7.0 [pH] 5.0 - 8.0 [facility] Urine sediment bacteria coun t by microscopy (number/high power field)Ordered By: Jeevan Yoder on 03-04-2025 Bacteria LM.HPF (Urine sed) [#/Area] 4 /[HPF] None Seen [facility] Urine sediment yeast count b y microscopy (number/high powered field)Ordered By: Jeevan Yoder on 03-04-2025 Yeast LM.HPF (Urine sed) [#/Area] 2 /[HPF] None Seen [facility] Urine specific gravity measu rementOrdered By: Jeevan Yoder on 03-04-2025 Specific gravity (U) [Rel density] 1.010 1.002-1.030 [facility] Urine urobilinogen measureme ntOrdered By: Jeevan Yoder on 03-04-2025 Urobilinogen Ql (U) Normal mg/dl Normal [facility] White blood cell (WBC) count Ordered By: Jeevan Yoder on 03-04-2025 WBC (Bld) [#/Vol] 7.2 10*3/uL 4.4-11.0 [facility] White blood cell countOrdere d By: Jeevan Yoder on 03-04-2025 White blood cell count 25-50 SEEN /hpf 0-5 [facility] Basic Metabolic Profile (BMP )on 02-23-2025 BUN Normal 4-19 [facility] Comment on above: Result Comment: Canc elled via OM: Order cancelled - Patient discharged Performed By: #### L 500.2500, L100.0100 ####[facility] [address] [place], [address] BUN/CRE Normal 10-20 [facility] Comment on above: Result Comment: Canc elled via OM: Order cancelled - Patient discharged Performed By: #### L 500.2500, L100.0100 ####[facility] [address] [place], [address] Calcium Normal 7.6-11.0 [facility] Comment on above: Result Comment: Canc elled via OM: Order cancelled - Patient discharged Performed By: #### L 500.2500, L100.0100 ####[facility] [address] [place], [address] CL Normal 98-108 [facility] Comment on above: Result Comment: Canc elled via OM: Order cancelled - Patient discharged Performed By: #### L 500.2500, L100.0100 ####[facility] [address] [place], [address] CO2 Normal 21.0-32.0 [facility] Comment on above: Result Comment: Canc elled via OM: Order cancelled - Patient discharged Performed By: #### L 500.2500, L100.0100 ####[facility] [address] [place], [address] CREAT,SERUM Normal 0.70-1.20 [facility] Comment on above: Result Comment: Canc elled via OM: Order cancelled - Patient discharged Performed By: #### L 500.2500, L100.0100 ####[facility] [address] [place], [address] eGFR Normal >60 [facility] Comment on above: Result Comment: Canc elled via OM: Order cancelled - Patient discharged Performed By: #### L 500.2500, L100.0100 ####[facility] [address] [place], [address] GAP Normal 5-15 [facility] Comment on above: Result Comment: Canc elled via OM: Order cancelled - Patient discharged Performed By: #### L 500.2500, L100.0100 ####[facility] [address] [place], [address] GLU Normal 70-99 [facility] Comment on above: Result Comment: Canc elled via OM: Order cancelled - Patient discharged Performed By: #### L 500.2500, L100.0100 ####[facility] [address] [place], [address] Potassium Normal 3.3-5.1 [facility] Comment on above: Result Comment: Canc elled via OM: Order cancelled - Patient discharged Performed By: #### L 500.2500, L100.0100 ####[facility] [address] [place], [address] Basic Metabolic Profile (BMP) Normal 133-145 [facility] Comment on above: Result Comment: Canc elled via OM: Order cancelled - Patient discharged Performed By: #### L 500.2500, L100.0100 ####[facility] [address] [place], [address] CBC W/Diff, Automatedon 06-2 Absolute Neut Normal 2.0-7.7 [facility] Comment on above: Result Comment: Canc elled via OM: Order cancelled - Patient discharged Performed By: #### L 500.2500, L100.0100 ####[facility] [address] [place], [address] HCT Normal 37-47 [facility] Comment on above: Result Comment: Canc elled via OM: Order cancelled - Patient discharged Performed By: #### L 500.2500, L100.0100 ####[facility] [address] [place], [address] HGB Normal 12.0-15.0 [facility] Comment on above: Result Comment: Canc elled via OM: Order cancelled - Patient discharged Performed By: #### L 500.2500, L100.0100 ####[facility] [address] [place], [address] MCH Normal 27.0-32.0 [facility] Comment on above: Result Comment: Canc elled via OM: Order cancelled - Patient discharged Performed By: #### L 500.2500, L100.0100 ####[facility] [address] [place], [address] MCHC Normal 32-36 [facility] Comment on above: Result Comment: Canc elled via OM: Order cancelled - Patient discharged Performed By: #### L 500.2500, L100.0100 ####[facility] [address] [place], [address] MCV Normal 81-99 [facility] Comment on above: Result Comment: Canc elled via OM: Order cancelled - Patient discharged Performed By: #### L 500.2500, L100.0100 ####[facility] [address] [place], [address] NEUT% Normal 47-70 [facility] Comment on above: Result Comment: Canc elled via OM: Order cancelled - Patient discharged Performed By: #### L 500.2500, L100.0100 ####[facility] [address] [place], [address] PLT Normal 150-450 [facility] Comment on above: Result Comment: Canc elled via OM: Order cancelled - Patient discharged Performed By: #### L 500.2500, L100.0100 ####[facility] [address] [place], [address] RBC Normal 4.2-5.4 [facility] Comment on above: Result Comment: Canc elled via OM: Order cancelled - Patient discharged Performed By: #### L 500.2500, L100.0100 ####[facility] [address] [place], [address] RDW CV Normal 11.6-14.6 [facility] Comment on above: Result Comment: Canc elled via OM: Order cancelled - Patient discharged Performed By: #### L 500.2500, L100.0100 ####[facility] [address] [place], [address] RDW SD Normal 35.1-43.9 [facility] Comment on above: Result Comment: Canc elled via OM: Order cancelled - Patient discharged Performed By: #### L 500.2500, L100.0100 ####[facility] [address] [place], [address] WBC Normal 4.4-11.0 [facility] Comment on above: Result Comment: Canc elled via OM: Order cancelled - Patient discharged Performed By: #### L 500.2500, L100.0100 ####[facility] [address] [place], [address] Basic Metabolic Profile (BMP )on 02-22-2025 BUN Normal 4-19 [facility] Comment on above: Result Comment: Canc elled via OM: Order cancelled - Patient discharged Performed By: #### L 500.2500, L100.0100 ####[facility] [address] [place], [address] BUN/CRE Normal 10-20 [facility] Comment on above: Result Comment: Canc elled via OM: Order cancelled - Patient discharged Performed By: #### L 500.2500, L100.0100 ####[facility] [address] [place], [address] Calcium Normal 7.6-11.0 [facility] Comment on above: Result Comment: Canc elled via OM: Order cancelled - Patient discharged Performed By: #### L 500.2500, L100.0100 ####[facility] [address] [place], [address] CL Normal 98-108 [facility] Comment on above: Result Comment: Canc elled via OM: Order cancelled - Patient discharged Performed By: #### L 500.2500, L100.0100 ####[facility] [address] [place], [address] CO2 Normal 21.0-32.0 [facility] Comment on above: Result Comment: Canc elled via OM: Order cancelled - Patient discharged Performed By: #### L 500.2500, L100.0100 ####[facility] [address] [place], [address] CREAT,SERUM Normal 0.70-1.20 [facility] Comment on above: Result Comment: Canc elled via OM: Order cancelled - Patient discharged Performed By: #### L 500.2500, L100.0100 ####[facility] [address] [place], [address] eGFR Normal >60 [facility] Comment on above: Result Comment: Canc elled via OM: Order cancelled - Patient discharged Performed By: #### L 500.2500, L100.0100 ####[facility] [address] [place], [address] GAP Normal 5-15 [facility] Comment on above: Result Comment: Canc elled via OM: Order cancelled - Patient discharged Performed By: #### L 500.2500, L100.0100 ####[facility] [address] [place], [address] GLU Normal 70-99 [facility] Comment on above: Result Comment: Canc elled via OM: Order cancelled - Patient discharged Performed By: #### L 500.2500, L100.0100 ####[facility] [address] [place], [address] Potassium Normal 3.3-5.1 [facility] Comment on above: Result Comment: Canc elled via OM: Order cancelled - Patient discharged Performed By: #### L 500.2500, L100.0100 ####[facility] [address] [place], [address] Basic Metabolic Profile (BMP) Normal 133-145 [facility] Comment on above: Result Comment: Canc elled via OM: Order cancelled - Patient discharged Performed By: #### L 500.2500, L100.0100 ####[facility] [address] [place], [address] CBC W/Diff, Automatedon 06-2 Absolute Neut Normal 2.0-7.7 [facility] Comment on above: Result Comment: Canc elled via OM: Order cancelled - Patient discharged Performed By: #### L 500.2500, L100.0100 ####[facility] [address] [place], [address] HCT Normal 37-47 [facility] Comment on above: Result Comment: Canc elled via OM: Order cancelled - Patient discharged Performed By: #### L 500.2500, L100.0100 ####[facility] [address] [place], [address] HGB Normal 12.0-15.0 [facility] Comment on above: Result Comment: Canc elled via OM: Order cancelled - Patient discharged Performed By: #### L 500.2500, L100.0100 ####[facility] [address] [place], [address] MCH Normal 27.0-32.0 [facility] Comment on above: Result Comment: Canc elled via OM: Order cancelled - Patient discharged Performed By: #### L 500.2500, L100.0100 ####[facility] [address] [place], [address] MCHC Normal 32-36 [facility] Comment on above: Result Comment: Canc elled via OM: Order cancelled - Patient discharged Performed By: #### L 500.2500, L100.0100 ####[facility] [address] [place], [address] MCV Normal 81-99 [facility] Comment on above: Result Comment: Canc elled via OM: Order cancelled - Patient discharged Performed By: #### L 500.2500, L100.0100 ####[facility] [address] [place], [address] NEUT% Normal 47-70 [facility] Comment on above: Result Comment: Canc elled via OM: Order cancelled - Patient discharged Performed By: #### L 500.2500, L100.0100 ####[facility] [address] [place], [address] PLT Normal 150-450 [facility] Comment on above: Result Comment: Canc elled via OM: Order cancelled - Patient discharged Performed By: #### L 500.2500, L100.0100 ####[facility] [address] [place], [address] RBC Normal 4.2-5.4 [facility] Comment on above: Result Comment: Canc elled via OM: Order cancelled - Patient discharged Performed By: #### L 500.2500, L100.0100 ####[facility] [address] [place], [address] RDW CV Normal 11.6-14.6 [facility] Comment on above: Result Comment: Canc elled via OM: Order cancelled - Patient discharged Performed By: #### L 500.2500, L100.0100 ####[facility] [address] [place], [address] RDW SD Normal 35.1-43.9 [facility] Comment on above: Result Comment: Canc elled via OM: Order cancelled - Patient discharged Performed By: #### L 500.2500, L100.0100 ####[facility] [address] [place], [address] WBC Normal 4.4-11.0 [facility] Comment on above: Result Comment: Canc elled via OM: Order cancelled - Patient discharged Performed By: #### L 500.2500, L100.0100 ####[facility] [address] [place], [address] Basic Metabolic Profile (BMP )on 02-21-2025 BUN Normal 4-19 [facility] Comment on above: Result Comment: Canc elled via OM: Order cancelled - Patient discharged Performed By: #### L 500.2500, L100.0100 ####[facility] [address] [place], [address] BUN/CRE Normal 10-20 [facility] Comment on above: Result Comment: Canc elled via OM: Order cancelled - Patient discharged Performed By: #### L 500.2500, L100.0100 ####[facility] [address] [place], [address] Calcium Normal 7.6-11.0 [facility] Comment on above: Result Comment: Canc elled via OM: Order cancelled - Patient discharged Performed By: #### L 500.2500, L100.0100 ####[facility] [address] [place], [address] CL Normal 98-108 [facility] Comment on above: Result Comment: Canc elled via OM: Order cancelled - Patient discharged Performed By: #### L 500.2500, L100.0100 ####[facility] [address] [place], [address] CO2 Normal 21.0-32.0 [facility] Comment on above: Result Comment: Canc elled via OM: Order cancelled - Patient discharged Performed By: #### L 500.2500, L100.0100 ####[facility] [address] [place], [address] CREAT,SERUM Normal 0.70-1.20 [facility] Comment on above: Result Comment: Canc elled via OM: Order cancelled - Patient discharged Performed By: #### L 500.2500, L100.0100 ####[facility] [address] [place], [address] eGFR Normal >60 [facility] Comment on above: Result Comment: Canc elled via OM: Order cancelled - Patient discharged Performed By: #### L 500.2500, L100.0100 ####[facility] [address] [place], [address] GAP Normal 5-15 [facility] Comment on above: Result Comment: Canc elled via OM: Order cancelled - Patient discharged Performed By: #### L 500.2500, L100.0100 ####[facility] [address] [place], [address] GLU Normal 70-99 [facility] Comment on above: Result Comment: Canc elled via OM: Order cancelled - Patient discharged Performed By: #### L 500.2500, L100.0100 ####[facility] [address] [place], [address] Potassium Normal 3.3-5.1 [facility] Comment on above: Result Comment: Canc elled via OM: Order cancelled - Patient discharged Performed By: #### L 500.2500, L100.0100 ####[facility] [address] [place], [address] Basic Metabolic Profile (BMP) Normal 133-145 [facility] Comment on above: Result Comment: Canc elled via OM: Order cancelled - Patient discharged Performed By: #### L 500.2500, L100.0100 ####[facility] [address] [place], [address] CBC W/Diff, Automatedon 06-2 Absolute Neut Normal 2.0-7.7 [facility] Comment on above: Result Comment: Canc elled via OM: Order cancelled - Patient discharged Performed By: #### L 500.2500, L100.0100 ####[facility] [address] [place], [address] HCT Normal 37-47 [facility] Comment on above: Result Comment: Canc elled via OM: Order cancelled - Patient discharged Performed By: #### L 500.2500, L100.0100 ####[facility] [address] [place], [address] HGB Normal 12.0-15.0 [facility] Comment on above: Result Comment: Canc elled via OM: Order cancelled - Patient discharged Performed By: #### L 500.2500, L100.0100 ####[facility] [address] [place], [address] MCH Normal 27.0-32.0 [facility] Comment on above: Result Comment: Canc elled via OM: Order cancelled - Patient discharged Performed By: #### L 500.2500, L100.0100 ####[facility] [address] [place], [address] MCHC Normal 32-36 [facility] Comment on above: Result Comment: Canc elled via OM: Order cancelled - Patient discharged Performed By: #### L 500.2500, L100.0100 ####[facility] [address] [place], [address] MCV Normal 81-99 [facility] Comment on above: Result Comment: Canc elled via OM: Order cancelled - Patient discharged Performed By: #### L 500.2500, L100.0100 ####[facility] [address] [place], [address] NEUT% Normal 47-70 [facility] Comment on above: Result Comment: Canc elled via OM: Order cancelled - Patient discharged Performed By: #### L 500.2500, L100.0100 ####[facility] [address] [place], [address] PLT Normal 150-450 [facility] Comment on above: Result Comment: Canc elled via OM: Order cancelled - Patient discharged Performed By: #### L 500.2500, L100.0100 ####[facility] [address] [place], [address] RBC Normal 4.2-5.4 [facility] Comment on above: Result Comment: Canc elled via OM: Order cancelled - Patient discharged Performed By: #### L 500.2500, L100.0100 ####[facility] [address] [place], [address] RDW CV Normal 11.6-14.6 [facility] Comment on above: Result Comment: Canc elled via OM: Order cancelled - Patient discharged Performed By: #### L 500.2500, L100.0100 ####[facility] [address] [place], [address] RDW SD Normal 35.1-43.9 [facility] Comment on above: Result Comment: Canc elled via OM: Order cancelled - Patient discharged Performed By: #### L 500.2500, L100.0100 ####[facility] [address] [place], [address] WBC Normal 4.4-11.0 [facility] Comment on above: Result Comment: Canc elled via OM: Order cancelled - Patient discharged Performed By: #### L 500.2500, L100.0100 ####[facility] [address] [place], [address] Basic Metabolic Profile (BMP )on 02-20-2025 BUN Normal 4-19 [facility] Comment on above: Result Comment: Canc elled via OM: Order cancelled - Patient discharged Performed By: #### L 100.0100, L500.2500 ####[facility] [address] [place], [address] BUN/CRE Normal 10-20 [facility] Comment on above: Result Comment: Canc elled via OM: Order cancelled - Patient discharged Performed By: #### L 100.0100, L500.2500 ####[facility] [address] [place], [address] Calcium Normal 7.6-11.0 [facility] Comment on above: Result Comment: Canc elled via OM: Order cancelled - Patient discharged Performed By: #### L 100.0100, L500.2500 ####[facility] [address] [place], [address] CL Normal 98-108 [facility] Comment on above: Result Comment: Canc elled via OM: Order cancelled - Patient discharged Performed By: #### L 100.0100, L500.2500 ####[facility] [address] [place], [address] CO2 Normal 21.0-32.0 [facility] Comment on above: Result Comment: Canc elled via OM: Order cancelled - Patient discharged Performed By: #### L 100.0100, L500.2500 ####[facility] [address] [place], [address] CREAT,SERUM Normal 0.70-1.20 [facility] Comment on above: Result Comment: Canc elled via OM: Order cancelled - Patient discharged Performed By: #### L 100.0100, L500.2500 ####[facility] [address] [place], [address] eGFR Normal >60 [facility] Comment on above: Result Comment: Canc elled via OM: Order cancelled - Patient discharged Performed By: #### L 100.0100, L500.2500 ####[facility] [address] [place], [address] GAP Normal 5-15 [facility] Comment on above: Result Comment: Canc elled via OM: Order cancelled - Patient discharged Performed By: #### L 100.0100, L500.2500 ####[facility] [address] [place], [address] GLU Normal 70-99 [facility] Comment on above: Result Comment: Canc elled via OM: Order cancelled - Patient discharged Performed By: #### L 100.0100, L500.2500 ####[facility] [address] [place], [address] Potassium Normal 3.3-5.1 [facility] Comment on above: Result Comment: Canc elled via OM: Order cancelled - Patient discharged Performed By: #### L 100.0100, L500.2500 ####[facility] [address] [place], [address] Basic Metabolic Profile (BMP) Normal 133-145 [facility] Comment on above: Result Comment: Canc elled via OM: Order cancelled - Patient discharged Performed By: #### L 100.0100, L500.2500 ####[facility] [address] [place], [address] Bedside Glucoseon 02-20-2025 FINGERSTICK GLU 385 mg/dL High 74-106 [facility] Comment on above: Result Comment: KATARINA GEMENT OF PATIENT CARE PER NURSING PROTOCOL Performed By: #### L 501.080 ####[facility] [address] [place], [address] FINGERSTICK GLU 419 mg/dL High 74-106 [facility] Comment on above: Result Comment: KATARINA GEMENT OF PATIENT CARE PER NURSING PROTOCOL Performed By: #### L 501.080 ####[facility] [address] [place], [address] CBC W/Diff, Automatedon 01-30 Absolute Neut Normal 2.0-7.7 [facility] Comment on above: Result Comment: Canc elled via OM: Order cancelled - Patient discharged Performed By: #### L 100.0100, L500.2500 ####[facility] [address] [place], [address] HCT Normal 37-47 [facility] Comment on above: Result Comment: Canc elled via OM: Order cancelled - Patient discharged Performed By: #### L 100.0100, L500.2500 ####[facility] [address] [place], [address] HGB Normal 12.0-15.0 [facility] Comment on above: Result Comment: Canc elled via OM: Order cancelled - Patient discharged Performed By: #### L 100.0100, L500.2500 ####[facility] [address] [place], [address] MCH Normal 27.0-32.0 [facility] Comment on above: Result Comment: Canc elled via OM: Order cancelled - Patient discharged Performed By: #### L 100.0100, L500.2500 ####[facility] [address] [place], [address] MCHC Normal 32-36 [facility] Comment on above: Result Comment: Canc elled via OM: Order cancelled - Patient discharged Performed By: #### L 100.0100, L500.2500 ####[facility] [address] [place], [address] MCV Normal 81-99 [facility] Comment on above: Result Comment: Canc elled via OM: Order cancelled - Patient discharged Performed By: #### L 100.0100, L500.2500 ####[facility] [address] [place], [address] NEUT% Normal 47-70 [facility] Comment on above: Result Comment: Canc elled via OM: Order cancelled - Patient discharged Performed By: #### L 100.0100, L500.2500 ####[facility] [address] [place], [address] PLT Normal 150-450 [facility] Comment on above: Result Comment: Canc elled via OM: Order cancelled - Patient discharged Performed By: #### L 100.0100, L500.2500 ####[facility] [address] [place], [address] RBC Normal 4.2-5.4 [facility] Comment on above: Result Comment: Canc elled via OM: Order cancelled - Patient discharged Performed By: #### L 100.0100, L500.2500 ####[facility] [address] [place], [address] RDW CV Normal 11.6-14.6 [facility] Comment on above: Result Comment: Canc elled via OM: Order cancelled - Patient discharged Performed By: #### L 100.0100, L500.2500 ####[facility] [address] [place], [address] RDW SD Normal 35.1-43.9 [facility] Comment on above: Result Comment: Canc elled via OM: Order cancelled - Patient discharged Performed By: #### L 100.0100, L500.2500 ####[facility] [facility] [address] [place], [address] WBC Normal 4.4-11.0 [facility] Comment on above: Result Comment: Canc elled via OM: Order cancelled - Patient discharged Performed By: #### L 100.0100, L500.2500 ####[facility] [address] [place], [address] Basic Metabolic Profile (BMP )on 02-19-2025 BUN Normal 4-19 [facility] Comment on above: Result Comment: Canc elled via OM: Order cancelled - Patient discharged Performed By: #### L 500.2500, L100.0100 ####[facility] [address] [place], [address] BUN/CRE Normal 10-20 [facility] Comment on above: Result Comment: Canc elled via OM: Order cancelled - Patient discharged Performed By: #### L 500.2500, L100.0100 ####[facility] [address] [place], [address] Calcium Normal 7.6-11.0 [facility] Comment on above: Result Comment: Canc elled via OM: Order cancelled - Patient discharged Performed By: #### L 500.2500, L100.0100 ####[facility] [address] [place], [address] CL Normal 98-108 [facility] Comment on above: Result Comment: Canc elled via OM: Order cancelled - Patient discharged Performed By: #### L 500.2500, L100.0100 ####[facility] [address] [place], [address] CO2 Normal 21.0-32.0 [facility] Comment on above: Result Comment: Canc elled via OM: Order cancelled - Patient discharged Performed By: #### L 500.2500, L100.0100 ####[facility] [address] [place], [address] CREAT,SERUM Normal 0.70-1.20 [facility] Comment on above: Result Comment: Canc elled via OM: Order cancelled - Patient discharged Performed By: #### L 500.2500, L100.0100 ####[facility] [address] [place], [address] eGFR Normal >60 [facility] Comment on above: Result Comment: Canc elled via OM: Order cancelled - Patient discharged Performed By: #### L 500.2500, L100.0100 ####[facility] [address] [place], [address] GAP Normal 5-15 [facility] Comment on above: Result Comment: Canc elled via OM: Order cancelled - Patient discharged Performed By: #### L 500.2500, L100.0100 ####[facility] [address] [place], [address] GLU Normal 70-99 [facility] Comment on above: Result Comment: Canc elled via OM: Order cancelled - Patient discharged Performed By: #### L 500.2500, L100.0100 ####[facility] [address] [place], [address] Potassium Normal 3.3-5.1 [facility] Comment on above: Result Comment: Canc elled via OM: Order cancelled - Patient discharged Performed By: #### L 500.2500, L100.0100 ####[facility] [address] [place], [address] Basic Metabolic Profile (BMP) Normal 133-145 [facility] Comment on above: Result Comment: Canc elled via OM: Order cancelled - Patient discharged Performed By: #### L 500.2500, L100.0100 ####[facility] [address] [place], [address] CBC W/Diff, Automatedon 06-2 Absolute Neut Normal 2.0-7.7 [facility] Comment on above: Result Comment: Canc elled via OM: Order cancelled - Patient discharged Performed By: #### L 500.2500, L100.0100 ####[facility] [address] [place], [address] HCT Normal 37-47 [facility] Comment on above: Result Comment: Canc elled via OM: Order cancelled - Patient discharged Performed By: #### L 500.2500, L100.0100 ####[facility] [address] [place], [address] HGB Normal 12.0-15.0 [facility] Comment on above: Result Comment: Canc elled via OM: Order cancelled - Patient discharged Performed By: #### L 500.2500, L100.0100 ####[facility] [address] [place], [address] MCH Normal 27.0-32.0 [facility] Comment on above: Result Comment: Canc elled via OM: Order cancelled - Patient discharged Performed By: #### L 500.2500, L100.0100 ####[facility] [address] [place], [address] MCHC Normal 32-36 [facility] Comment on above: Result Comment: Canc elled via OM: Order cancelled - Patient discharged Performed By: #### L 500.2500, L100.0100 ####[facility] [address] [place], [address] MCV Normal 81-99 [facility] Comment on above: Result Comment: Canc elled via OM: Order cancelled - Patient discharged Performed By: #### L 500.2500, L100.0100 ####[facility] [address] [place], [address] NEUT% Normal 47-70 [facility] Comment on above: Result Comment: Canc elled via OM: Order cancelled - Patient discharged Performed By: #### L 500.2500, L100.0100 ####[facility] [address] [place], [address] PLT Normal 150-450 [facility] Comment on above: Result Comment: Canc elled via OM: Order cancelled - Patient discharged Performed By: #### L 500.2500, L100.0100 ####[facility] [address] [place], [address] RBC Normal 4.2-5.4 [facility] Comment on above: Result Comment: Canc elled via OM: Order cancelled - Patient discharged Performed By: #### L 500.2500, L100.0100 ####[facility] [address] [place], [address] RDW CV Normal 11.6-14.6 [facility] Comment on above: Result Comment: Canc elled via OM: Order cancelled - Patient discharged Performed By: #### L 500.2500, L100.0100 ####[facility] [address] [place], [address] RDW SD Normal 35.1-43.9 [facility] Comment on above: Result Comment: Canc elled via OM: Order cancelled - Patient discharged Performed By: #### L 500.2500, L100.0100 ####[facility] [address] [place], [address] WBC Normal 4.4-11.0 [facility] Comment on above: Result Comment: Canc elled via OM: Order cancelled - Patient discharged Performed By: #### L 500.2500, L100.0100 ####[facility] [address] [place], [address] 12 Lead EKGon 02-18-2025 12 Lead EKG Normal [facility] Absolute lymphocyte countOrd ered By: Billy Kothari on 02-18-2025 Lymphocytes Auto (Unsp spec) [#/Vol] 1.53 10*3/uL 0.83-4.51 [facility] Anion gap in Serum or Plasma Ordered By: Billy Kothari on 02-18-2025 Anion gap [Moles/Vol] 11 mmol/L 5-15 [facility] Automated lymphocyte count a s percentage of total leukocytesOrdered By: Billy Kothari on 02-18-2025 Lymphocytes/100 WBC Auto (Unsp spec) 12.5 % Low 19-41 [facility] BUN/creatinine ratioOrdered By: Billy Kothari on 02-18-2025 Urea nitrogen/Creatinine [Mass ratio] 19.9 mg/mg 10-20 [facility] Basic Metabolic Profile (BMP )on 02-18-2025 BUN/CRE 19.9 RATIO Normal -20 [facility] Comment on above: Performed By: #### L 500.2500, L100.0100 ####[facility] [address] [place], [address] Calcium [Mass/Vol] 10.7 mg/dL Normal 7.6-11.0 [facility] Comment on above: Performed By: #### L 500.2500, L100.0100 ####[facility] [address] [place], [address] Chloride [Moles/Vol] 97 mmol/L Low 98-108 [facility] Comment on above: Performed By: #### L 500.2500, L100.0100 ####[facility] [address] [place], [address] CO2 [Moles/Vol] 28.1 mmol/L Normal 21.0-32.0 [facility] Comment on above: Performed By: #### L 500.2500, L100.0100 ####[facility] [address] [place], [address] Creatinine [Mass/Vol] 1.26 mg/dL High 0.70-1.20 [facility] Comment on above: Performed By: #### L 500.2500, L100.0100 ####[facility] [address] [place], [address] ECRCL 34.58 ml/min Low 50-250 [facility] Comment on above: Performed By: #### L 500.2500, L100.0100 ####[facility] [address] [place], [address] GAP 11 Normal 5-15 [facility] Comment on above: Performed By: #### L 500.2500, L100.0100 ####[facility] [address] [place], [address] GFR/1.73 sq M.predicted among non-blacks MDRD (S/P/Bld) [Vol rate/Area] 43 mL/min/{1.73_m2} Low >60 [facility] Comment on above: Result Comment: mL/m in/1.73m2 CKD-EPI Creatinine Equation (2020) Performed By: #### L 500.2500, L100.0100 ####[facility] [address] [place], [address] Glucose [Mass/Vol] 174 mg/dL High 70-99 [facility] Comment on above: Performed By: #### L 500.2500, L100.0100 ####[facility] [address] [place], [address] Potassium [Moles/Vol] 6.0 mmol/L Invalid Interpretation Code 3.3-5.1 [facility] Comment on above: Result Comment: Hemo lysis present, Results??could be affected.??Critical Result(s) Called EFINK at: 2254 by:VIET??Results read back by same.Hemolysis present, Results??could be affected.?? Performed By: #### L 500.2500, L100.0100 ####[facility] [address] [place], [address] Sodium [Moles/Vol] 136 mmol/L Normal 133-145 [facility] Comment on above: Performed By: #### L 500.2500, L100.0100 ####[facility] [address] [place], [address] Urea nitrogen [Mass/Vol] 25 mg/dL High -19 [facility] Comment on above: Performed By: #### L 500.2500, L100.0100 ####[facility] [address] [place], [address] BUN Normal -19 [facility] Comment on above: Result Comment: Canc elled via OM: Order cancelled - Patient discharged Performed By: #### L 100.0100, L500.2500 ####[facility] [address] [place], [address] BUN/CRE Normal 10-20 [facility] Comment on above: Result Comment: Canc elled via OM: Order cancelled - Patient discharged Performed By: #### L 100.0100, L500.2500 ####[facility] [address] [place], [address] Calcium Normal 7.6-11.0 [facility] Comment on above: Result Comment: Canc elled via OM: Order cancelled - Patient discharged Performed By: #### L 100.0100, L500.2500 ####[facility] [address] [place], [address] CL Normal 98-108 [facility] Comment on above: Result Comment: Canc elled via OM: Order cancelled - Patient discharged Performed By: #### L 100.0100, L500.2500 ####[facility] [address] [place], [address] CO2 Normal 21.0-32.0 [facility] Comment on above: Result Comment: Canc elled via OM: Order cancelled - Patient discharged Performed By: #### L 100.0100, L500.2500 ####[facility] [address] [place], [address] CREAT,SERUM Normal 0.70-1.20 [facility] Comment on above: Result Comment: Canc elled via OM: Order cancelled - Patient discharged Performed By: #### L 100.0100, L500.2500 ####[facility] [address] [place], [address] eGFR Normal >60 [facility] Comment on above: Result Comment: Canc elled via OM: Order cancelled - Patient discharged Performed By: #### L 100.0100, L500.2500 ####[facility] [address] [place], [address] GAP Normal 5-15 [facility] Comment on above: Result Comment: Canc elled via OM: Order cancelled - Patient discharged Performed By: #### L 100.0100, L500.2500 ####[facility] [address] [place], [address] GLU Normal 70-99 [facility] Comment on above: Result Comment: Canc elled via OM: Order cancelled - Patient discharged Performed By: #### L 100.0100, L500.2500 ####[facility] [address] [place], [address] Potassium Normal 3.3-5.1 [facility] Comment on above: Result Comment: Canc elled via OM: Order cancelled - Patient discharged Performed By: #### L 100.0100, L500.2500 ####[facility] [address] [place], [address] Basic Metabolic Profile (BMP) Normal 133-145 [facility] Comment on above: Result Comment: Canc elled via OM: Order cancelled - Patient discharged Performed By: #### L 100.0100, L500.2500 ####[facility] [address] [place], [address] Basophil percentageOrdered B y: Billy Kothari on 02-18-2025 Basophils/100 WBC (Bld) 0.2 % 0-1 [facility] CBC W/Diff, Automatedon 01-30-2024 Absolute Lymph 1.53 X10 3/uL Normal 0.83-4.51 [facility] Comment on above: Performed By: #### L 500.2500, L100.0100 ####[facility] [address] [place], [address] Absolute Neut 9.6 X10 3/uL High 2.0-7.7 [facility] Comment on above: Performed By: #### L 500.2500, L100.0100 ####[facility] [address] [place], [address] Basophils/100 WBC (Bld) 0.2 % Normal 0-1 [facility] Comment on above: Performed By: #### L 500.2500, L100.0100 ####[facility] [address] [place], [address] Eosinophils/100 WBC (Bld) 1.0 % Normal 0-5 [facility] Comment on above: Performed By: #### L 500.2500, L100.0100 ####[facility] [address] [place], [address] Erythrocyte distribution width (RBC) [Ratio] 15.9 % High 11.6-14.6 [facility] Comment on above: Performed By: #### L 500.2500, L100.0100 ####[facility] [address] [place], [address] Hematocrit (Bld) [Volume fraction] 35.8 % Low 37-47 [facility] Comment on above: Performed By: #### L 500.2500, L100.0100 ####[facility] [address] [place], [address] Hemoglobin (Bld) [Mass/Vol] 10.9 g/dL Low 12.0-15.0 [facility] Comment on above: Performed By: #### L 500.2500, L100.0100 ####[facility] [address] [place], [address] IG% 0.900 Normal 0.0-0.9 [facility] Comment on above: Result Comment: IG% - Immature Granulocytes (promyelocytes, myelocytes andmetamyelocytes) > 1% indicates that a LEFT SHIFT is Present. Performed By: #### L 500.2500, L100.0100 ####[facility] [address] [place], [address] Lymphocytes/100 WBC (Bld) 12.5 % Low 19-41 [facility] Comment on above: Performed By: #### L 500.2500, L100.0100 ####[facility] [address] [place], [address] MCH (RBC) [Entitic mass] 27.9 pg Normal 27.0-32.0 [facility] Comment on above: Performed By: #### L 500.2500, L100.0100 ####[facility] [address] [place], [address] MCHC (RBC) [Mass/Vol] 30.4 g/dL Low 32-36 [facility] Comment on above: Performed By: #### L 500.2500, L100.0100 ####[facility] [address] [place], [address] MCV (RBC) [Entitic vol] 91.6 fL Normal 81-99 [facility] Comment on above: Performed By: #### L 500.2500, L100.0100 ####[facility] [address] [place], [address] Monocytes/100 WBC (Bld) 6.7 % Normal 0-10 [facility] Comment on above: Performed By: #### L 500.2500, L100.0100 ####[facility] [address] [place], [address] Neutrophils/100 WBC (Bld) 78.7 % High 47-70 [facility] Comment on above: Performed By: #### L 500.2500, L100.0100 ####[facility] [address] [place], [address] Nucleated RBC (Bld) [#/Vol] 0 10*3/uL Normal 0-5 [facility] Comment on above: Performed By: #### L 500.2500, L100.0100 ####[facility] [address] [place], [address] Platelet mean volume (Bld) [Entitic vol] 11.5 fL Normal 6.2-12.0 [facility] Comment on above: Performed By: #### L 500.2500, L100.0100 ####[facility] [address] [place], [address] Platelets (Bld) [#/Vol] 337 10*3/uL Normal 150-450 [facility] Comment on above: Performed By: #### L 500.2500, L100.0100 ####[facility] [address] [place], [address] RBC (Bld) [#/Vol] 3.91 10*6/uL Low 4.2-5.4 [facility] Comment on above: Performed By: #### L 500.2500, L100.0100 ####[facility] [address] [place], [address] RDW SD 52.1 fl High 35.1-43.9 [facility] Comment on above: Performed By: #### L 500.2500, L100.0100 ####[facility] [address] [place], [address] WBC (Bld) [#/Vol] 12.2 10*3/uL High 4.4-11.0 [facility] Comment on above: Performed By: #### L 500.2500, L100.0100 ####[facility] [address] [place], [address] Absolute Neut Normal 2.0-7.7 [facility] Comment on above: Result Comment: Canc elled via OM: Order cancelled - Patient discharged Performed By: #### L 100.0100, L500.2500 ####[facility] [address] [place], [address] HCT Normal 37-47 [facility] Comment on above: Result Comment: Canc elled via OM: Order cancelled - Patient discharged Performed By: #### L 100.0100, L500.2500 ####[facility] [address] [place], [address] HGB Normal 12.0-15.0 [facility] Comment on above: Result Comment: Canc elled via OM: Order cancelled - Patient discharged Performed By: #### L 100.0100, L500.2500 ####[facility] [address] [place], [address] MCH Normal 27.0-32.0 [facility] Comment on above: Result Comment: Canc elled via OM: Order cancelled - Patient discharged Performed By: #### L 100.0100, L500.2500 ####[facility] [address] [place], [address] MCHC Normal 32-36 [facility] Comment on above: Result Comment: Canc elled via OM: Order cancelled - Patient discharged Performed By: #### L 100.0100, L500.2500 ####[facility] [address] [place], [address] MCV Normal 81-99 [facility] Comment on above: Result Comment: Canc elled via OM: Order cancelled - Patient discharged Performed By: #### L 100.0100, L500.2500 ####[facility] [address] [place], [address] NEUT% Normal 47-70 [facility] Comment on above: Result Comment: Canc elled via OM: Order cancelled - Patient discharged Performed By: #### L 100.0100, L500.2500 ####[facility] [address] [place], [address] PLT Normal 150-450 [facility] Comment on above: Result Comment: Canc elled via OM: Order cancelled - Patient discharged Performed By: #### L 100.0100, L500.2500 ####[facility] [address] [place], [address] RBC Normal 4.2-5.4 [facility] Comment on above: Result Comment: Canc elled via OM: Order cancelled - Patient discharged Performed By: #### L 100.0100, L500.2500 ####[facility] [address] [place], [address] RDW CV Normal 11.6-14.6 [facility] Comment on above: Result Comment: Canc elled via OM: Order cancelled - Patient discharged Performed By: #### L 100.0100, L500.2500 ####[facility] [address] [place], [address] RDW SD Normal 35.1-43.9 [facility] Comment on above: Result Comment: Canc elled via OM: Order cancelled - Patient discharged Performed By: #### L 100.0100, L500.2500 ####[facility] [address] [place], [address] WBC Normal 4.4-11.0 [facility] Comment on above: Result Comment: Canc elled via OM: Order cancelled - Patient discharged Performed By: #### L 100.0100, L500.2500 ####[facility] [address] [place], [address] Carbon dioxide, total [Moles /volume] in Central venous bloodOrdered By: Billy Kothari on 02-18-2025 CO2 [Moles/Vol] 28.1 mmol/L 21.0-32.0 [facility] Chest 1 View (Portable)on Chest 1 View (Portable) Normal [facility] Chloride assayOrdered By: Dante Kothari on 02-18-2025 Chloride [Moles/Vol] 97 mmol/L Low 98-108 [facility] Emergency Department Summary on 02-18-2025 Emergency Department Summary Normal [facility] Eosinophil percentageOrdered By: Billy Kothari on 02-18-2025 Eosinophils/100 WBC (Bld) 1.0 % 0-5 [facility] Erythrocyte distribution wid th ratioOrdered By: Billy Kothari on 02-18-2025 Erythrocyte distribution width (RBC) [Ratio] 15.9 % High 11.6-14.6 [facility] Erythrocyte distribution wid th standard deviationOrdered By: Billy Kothari on 02-18-2025 Erythrocyte distribution width (RBC) [Ratio] 52.1 fl High 35.1-43.9 [facility] Glomerular filtration rate ( GFR) estimation/1.73 sq m using serum, plasma, or whole bOrdered By: Billy Kothari on 02-18-2025 GFR/1.73 sq M.predicted among non-blacks MDRD (S/P/Bld) [Vol rate/Area] 43 mL/min/{1.73_m2} Low >60 [facility] Hematocrit Auto (Bld) [Volum e fraction]Ordered By: Billy Kothari on 02-18-2025 Hematocrit (Bld) [Volume fraction] 35.8 % Low 37-47 [facility] Hemoglobin measurementOrdere d By: Billy Kothari on 02-18-2025 Hemoglobin (Bld) [Mass/Vol] 10.9 g/dL Low 12.0-15.0 [facility] Immature granulocytes/100 WB C Auto (Bld)Ordered By: Billy Kothari on 02-18-2025 Immature granulocytes/100 WBC (Bld) 0.900 % 0.0-0.9 [facility] L503.7505on 02-18-2025 Natriuretic peptide B (Bld) [Mass/Vol] 3811 pg/mL High <=1800 [facility] Comment on above: Result Comment: Hear t Failure Unlikely: < 300 pg/mLHeart Failure Likely< 50 Years: > 450 pg/mL50-75 Years: > 900 pg/mL>75 Years: > 1800 pg/mL Performed By: #### L 503.7505 ####[facility] [address] [place], [address] MCV (mean corpuscular volume ) determinationOrdered By: Billy Kothari on 02-18-2025 MCV (RBC) [Entitic vol] 91.6 fL 81-99 [facility] Mean corpuscular hemoglobin (MCH) determinationOrdered By: Billy Kothari on 02-18-2025 MCH (RBC) [Entitic mass] 27.9 pg 27.0-32.0 [facility] Monocyte percentageOrdered B y: Billy Kothari on 02-18-2025 Monocytes/100 WBC (Bld) 6.7 % 0-10 [facility] Natriuretic peptide.B prohor hayley N-Terminal [Mass/volume] in Serum or PlasmaOrdered By: Billy Kothari on 02-18-2025 Natriuretic peptide.B prohormone N-Terminal [Mass/Vol] 3811 pg/mL High <1800 [facility] Neutrophil percentageOrdered By: Billy Kothari on 02-18-2025 Neutrophils/100 WBC (Bld) 78.7 % High 47-70 [facility] Platelet countOrdered By: Dante Kothari on 02-18-2025 Platelets (Bld) [#/Vol] 337 10*3/uL 150-450 [facility] Potassiumon 02-18-2025 Potassium [Moles/Vol] 4.7 mmol/L Normal 3.3-5.1 [facility] Comment on above: Performed By: #### L 501.5600 ####[facility] [address] [address] [place], [place], [address] Potassium measurement (mass/ volume)Ordered By: Billy Kothari on 02-18-2025 Potassium (Unsp spec) [Mass/Vol] 4.7 mmol/L 3.3-5.1 [facility] RBC Auto (Bld) [#/Vol]Ordere d By: Billy Kothari on 02-18-2025 RBC (Bld) [#/Vol] 3.91 10*6/uL Low 4.2-5.4 [facility] Respiratory Cultureon 2024 RESPC Mixed normal respiratory karin. No Streptococcus pneumoniae, beta-hemolytic Streptococcus or Staphylococcus aureus isolated. Normal [facility] Comment on above: Performed By: #### M 100.2000, M100.2400 ####[facility] [address] [place], [place], [id number] Serum creatinine measurement (mass/volume)Ordered By: Billy Kothari on 02-18-2025 Creatinine [Mass/Vol] 1.26 mg/dL High 0.70-1.20 [facility] Serum glucose measurement (m ass/volume)Ordered By: Billy Kothari on 02-18-2025 Glucose [Mass/Vol] 174 mg/dL High 70-99 [facility] Serum or plasma calcium melanie urement (mass/volume)Ordered By: Billy Kotahri on 02-18-2025 Calcium [Mass/Vol] 10.7 mg/dL 7.6-11.0 [facility] Serum or plasma urea nitroge n measurement (mass/volume)Ordered By: Billy Kothari on 02-18-2025 Urea nitrogen [Mass/Vol] 25 mg/dL High 4-19 [facility] Sodium levelOrdered By: Billy Kothari on 02-18-2025 Sodium [Moles/Vol] 136 mmol/L 133-145 [facility] White blood cell (WBC) count Ordered By: Billy Kothari on 02-18-2025 WBC (Bld) [#/Vol] 12.2 10*3/uL High 4.4-11.0 [facility] Absolute lymphocyte countOrd ered By: Heydi Amaya on 02-17-2025 Lymphocytes Auto (Unsp spec) [#/Vol] 0.58 10*3/uL Low 0.83-4.51 [facility] Anion gap in Serum or Plasma Ordered By: Heydi Amaya on 02-17-2025 Anion gap [Moles/Vol] 12 mmol/L 5-15 [facility] Automated lymphocyte count a s percentage of total leukocytesOrdered By: Heydi Amaya on 02-17-2025 Lymphocytes/100 WBC Auto (Unsp spec) 7.8 % Low 19-41 [facility] BUN/creatinine ratioOrdered By: Heydi Amaya on 02-17-2025 Urea nitrogen/Creatinine [Mass ratio] 23.0 mg/mg High 10-20 [facility] Basic Metabolic Profile (BMP )on 02-17-2025 BUN/CRE 23.0 RATIO High - [facility] Comment on above: Performed By: #### L 500.2500, L100.0100 ####[facility] [address] [place], [address] Calcium [Mass/Vol] 10.3 mg/dL Normal 7.6-11.0 [facility] Comment on above: Performed By: #### L 500.2500, L100.0100 ####[facility] [address] [place], [address] Chloride [Moles/Vol] 98 mmol/L Normal 98-108 [facility] Comment on above: Performed By: #### L 500.2500, L100.0100 ####[facility] [address] [place], [address] CO2 [Moles/Vol] 23.5 mmol/L Normal 21.0-32.0 [facility] Comment on above: Performed By: #### L 500.2500, L100.0100 ####[facility] [address] [place], [address] Creatinine [Mass/Vol] 1.15 mg/dL Normal 0.70-1.20 [facility] Comment on above: Performed By: #### L 500.2500, L100.0100 ####[facility] [address] [place], [address] ECRCL 37.29 ml/min Low 50-250 [facility] Comment on above: Performed By: #### L 500.2499, L100.0100 ####[facility] [address] [place], [address] GAP 12 Normal 5-15 [facility] Comment on above: Performed By: #### L 500.2499, L100.0100 ####[facility] [address] [place], [address] GFR/1.73 sq M.predicted among non-blacks MDRD (S/P/Bld) [Vol rate/Area] 48 mL/min/{1.73_m2} Low >60 [facility] Comment on above: Result Comment: mL/m in/1.73m2 CKD-EPI Creatinine Equation (2020) Performed By: #### L 500.2499, L100.0100 ####[facility] [address] [place], [address] Glucose [Mass/Vol] 426 mg/dL High 70-99 [facility] Comment on above: Performed By: #### L 500.2500, L100.0100 ####[facility] [address] [place], [address] Potassium [Moles/Vol] 5.3 mmol/L High 3.3-5.1 [facility] Comment on above: Performed By: #### L 500.2500, L100.0100 ####[facility] [address] [place], [address] Sodium [Moles/Vol] 134 mmol/L Normal 133-145 [facility] Comment on above: Performed By: #### L 500.2500, L100.0100 ####[facility] [address] [place], [address] Urea nitrogen [Mass/Vol] 27 mg/dL High 4-19 [facility] Comment on above: Performed By: #### L 500.2500, L100.0100 ####[facility] [address] [place], [address] Basophil percentageOrdered B y: Heydishraddha Amaya on 02-17-2025 Basophils/100 WBC (Bld) 0.1 % 0-1 [facility] Bedside Glucoseon 02-17-2025 FINGERSTICK GLU 241 mg/dL High 74-106 [facility] Comment on above: Result Comment: KATARINA GEMENT OF PATIENT CARE PER NURSING PROTOCOL Performed By: #### L 501.080 ####[facility] [address] [place], [address] FINGERSTICK GLU 419 mg/dL High 74-106 [facility] Comment on above: Result Comment: KATARINA GEMENT OF PATIENT CARE PER NURSING PROTOCOL Performed By: #### L 501.080 ####[facility] [address] [place], [address] FINGERSTICK GLU 488 mg/dL Invalid Interpretation Code -106 [facility] Comment on above: Result Comment: KATARINA GEMENT OF PATIENT CARE PER NURSING PROTOCOL Performed By: #### L 501.080 ####[facility] [address] [place], [address] CBC W/Diff, Automatedon 01-30 Absolute Lymph 0.58 X10 3/uL Low 0.83-4.51 [facility] Comment on above: Performed By: #### L 500.2500, L100.0100 ####[facility] [address] [place], [address] Absolute Neut 6.4 X10 3/uL Normal 2.0-7.7 [facility] Comment on above: Performed By: #### L 500.2500, L100.0100 ####[facility] [address] [place], [address] Basophils/100 WBC (Bld) 0.1 % Normal 0-1 [facility] Comment on above: Performed By: #### L 500.2500, L100.0100 ####[facility] [address] [place], [address] Eosinophils/100 WBC (Bld) 0.1 % Normal 0-5 [facility] Comment on above: Performed By: #### L 500.2500, L100.0100 ####[facility] [address] [place], [address] Erythrocyte distribution width (RBC) [Ratio] 15.6 % High 11.6-14.6 [facility] Comment on above: Performed By: #### L 500.2500, L100.0100 ####[facility] [address] [place], [address] Hematocrit (Bld) [Volume fraction] 32.6 % Low 37-47 [facility] Comment on above: Performed By: #### L 500.2500, L100.0100 ####[facility] [address] [place], [address] Hemoglobin (Bld) [Mass/Vol] 9.9 g/dL Low 12.0-15.0 [facility] Comment on above: Performed By: #### L 500.2500, L100.0100 ####[facility] [address] [place], [address] IG% 0.900 Normal 0.0-0.9 [facility] Comment on above: Result Comment: IG% - Immature Granulocytes (promyelocytes, myelocytes andmetamyelocytes) > 1% indicates that a LEFT SHIFT is Present. Performed By: #### L 500.2500, L100.0100 ####[facility] [address] [place], [address] Lymphocytes/100 WBC (Bld) 7.8 % Low 19-41 [facility] Comment on above: Performed By: #### L 500.2500, L100.0100 ####[facility] [address] [place], [address] MCH (RBC) [Entitic mass] 27.7 pg Normal 27.0-32.0 [facility] Comment on above: Performed By: #### L 500.2500, L100.0100 ####[facility] [address] [place], [address] MCHC (RBC) [Mass/Vol] 30.4 g/dL Low 32-36 [facility] Comment on above: Performed By: #### L 500.2500, L100.0100 ####[facility] [address] [place], [address] MCV (RBC) [Entitic vol] 91.3 fL Normal 81-99 [facility] Comment on above: Performed By: #### L 500.2500, L100.0100 ####[facility] [address] [place], [address] Monocytes/100 WBC (Bld) 5.0 % Normal 0-10 [facility] Comment on above: Performed By: #### L 500.2500, L100.0100 ####[facility] [address] [place], [address] Neutrophils/100 WBC (Bld) 86.1 % High 47-70 [facility] Comment on above: Performed By: #### L 500.2500, L100.0100 ####[facility] [address] [place], [address] Nucleated RBC (Bld) [#/Vol] 0 10*3/uL Normal 0-5 [facility] Comment on above: Performed By: #### L 500.2500, L100.0100 ####[facility] [address] [place], [address] Platelet mean volume (Bld) [Entitic vol] 11.2 fL Normal 6.2-12.0 [facility] Comment on above: Performed By: #### L 500.2500, L100.0100 ####[facility] [address] [place], [address] Platelets (Bld) [#/Vol] 246 10*3/uL Normal 150-450 [facility] Comment on above: Performed By: #### L 500.2500, L100.0100 ####[facility] [address] [place], [address] RBC (Bld) [#/Vol] 3.57 10*6/uL Low 4.2-5.4 [facility] Comment on above: Performed By: #### L 500.2500, L100.0100 ####[facility] [address] [place], [address] RDW SD 51.5 fl High 35.1-43.9 [facility] Comment on above: Performed By: #### L 500.2500, L100.0100 ####[facility] [address] [place], [address] WBC (Bld) [#/Vol] 7.5 10*3/uL Normal 4.4-11.0 [facility] Comment on above: Performed By: #### L 500.2500, L100.0100 ####[facility] [address] [place], [address] Carbon dioxide, total [Moles /volume] in Central venous bloodOrdered By: Heydi Amaya on 02-17-2025 CO2 [Moles/Vol] 23.5 mmol/L 21.0-32.0 [facility] Chloride assayOrdered By: Davy Amaya on 02-17-2025 Chloride [Moles/Vol] 98 mmol/L 98-108 [facility] Electrocardiogram reportOrde red By: Marcelina Soto on 02-17-2025 EKG study [facility] Work Phone: Eosinophil percentageOrdered By: Heydi Amaya on 02-17-2025 Eosinophils/100 WBC (Bld) 0.1 % 0-5 [facility] Erythrocyte distribution wid th ratioOrdered By: Heydi Amaya on 02-17-2025 Erythrocyte distribution width (RBC) [Ratio] 15.6 % High 11.6-14.6 [facility] Erythrocyte distribution wid th standard deviationOrdered By: Heydi Amaya on 02-17-2025 Erythrocyte distribution width (RBC) [Ratio] 51.5 fl High 35.1-43.9 [facility] Glomerular filtration rate ( GFR) estimation/1.73 sq m using serum, plasma, or whole bOrdered By: Heydi Amaya on 02-17-2025 GFR/1.73 sq M.predicted among non-blacks MDRD (S/P/Bld) [Vol rate/Area] 48 mL/min/{1.73_m2} Low >60 [facility] de[facility]dered By: Heydi Amaya on 02-17-2025 Glucose [Mass/Vol] 241 mg/dL High 74-106 [facility] Hematocrit Auto (Bld) [Volum e fraction]Ordered By: Heydi Amaya on 02-17-2025 Hematocrit (Bld) [Volume fraction] 32.6 % Low 37-47 [facility] Hemoglobin measurementOrdere d By: Heydi Amaya on 02-17-2025 Hemoglobin (Bld) [Mass/Vol] 9.9 g/dL Low 12.0-15.0 [facility] Immature granulocytes/100 WB C Auto (Bld)Ordered By: Heydi Amaya on 02-17-2025 Immature granulocytes/100 WBC (Bld) 0.900 % 0.0-0.9 [facility] MCV (mean corpuscular volume ) determinationOrdered By: Heydi Amaya on 02-17-2025 MCV (RBC) [Entitic vol] 91.3 fL 81-99 [facility] Mean corpuscular hemoglobin (MCH) determinationOrdered By: Heydi Amaya on 02-17-2025 MCH (RBC) [Entitic mass] 27.7 pg 27.0-32.0 [facility] Monocyte percentageOrdered B y: Heydi Amaya on 02-17-2025 Monocytes/100 WBC (Bld) 5.0 % 0-10 [facility] Neutrophil percentageOrdered By: Heydi Amaya on 02-17-2025 Neutrophils/100 WBC (Bld) 86.1 % High 47-70 [facility] Platelet countOrdered By: Davy Amaya on 02-17-2025 Platelets (Bld) [#/Vol] 246 10*3/uL 150-450 [facility] Potassium measurement (mass/ volume)Ordered By: Heydi Amaya on 02-17-2025 Potassium (Unsp spec) [Mass/Vol] 5.3 mmol/L High 3.3-5.1 [facility] RBC Auto (Bld) [#/Vol]Ordere d By: Heydi Amaya on 02-17-2025 RBC (Bld) [#/Vol] 3.57 10*6/uL Low 4.2-5.4 [facility] Serum creatinine measurement (mass/volume)Ordered By: Heydi Amaya on 02-17-2025 Creatinine [Mass/Vol] 1.15 mg/dL 0.70-1.20 [facility] Serum glucose measurement (m ass/volume)Ordered By: Heydi Amaya on 02-17-2025 Glucose [Mass/Vol] 426 mg/dL High 70-99 [facility] Serum or plasma calcium melanie urement (mass/volume)Ordered By: Heydi Amaya on 02-17-2025 Calcium [Mass/Vol] 10.3 mg/dL 7.6-11.0 [facility] Serum or plasma urea nitroge n measurement (mass/volume)Ordered By: Heydi Amaya on 02-17-2025 Urea nitrogen [Mass/Vol] 27 mg/dL High 12-17 [facility] Sodium levelOrdered By: Rodolfo Amaya on 02-17-2025 Sodium [Moles/Vol] 134 mmol/L 133-145 [facility] White blood cell (WBC) count Ordered By: Heydi Amaya on 02-17-2025 WBC (Bld) [#/Vol] 7.5 10*3/uL 4.4-11.0 [facility] Basic Metabolic Profile (BMP )on 02-16-2025 BUN/CRE 22.0 RATIO High 06-19 [facility] Comment on above: Performed By: #### L 500.2500, L100.0500 ####[facility] [address] [place], [address] Calcium [Mass/Vol] 10.7 mg/dL Normal 7.6-11.0 [facility] Comment on above: Performed By: #### L 500.2500, L100.0500 ####[facility] [address] [place], [address] Chloride [Moles/Vol] 97 mmol/L Low 98-108 [facility] Comment on above: Performed By: #### L 500.2500, L100.0500 ####[facility] [address] [place], [address] CO2 [Moles/Vol] 29.5 mmol/L Normal 21.0-32.0 [facility] Comment on above: Performed By: #### L 500.2500, L100.0500 ####[facility] [address] [place], [address] Creatinine [Mass/Vol] 0.97 mg/dL Normal 0.70-1.20 [facility] Comment on above: Performed By: #### L 500.2500, L100.0500 ####[facility] [address] [place], [address] ECRCL 44.69 ml/min Low 50-250 [facility] Comment on above: Performed By: #### L 500.2500, L100.0500 ####[facility] [address] [place], [address] GAP 12 Normal 5-15 [facility] Comment on above: Performed By: #### L 500.2500, L100.0500 ####[facility] [address] [place], [address] GFR/1.73 sq M.predicted among non-blacks MDRD (S/P/Bld) [Vol rate/Area] 58 mL/min/{1.73_m2} Low >60 [facility] Comment on above: Result Comment: mL/m in/1.73m2 CKD-EPI Creatinine Equation (2020) Performed By: #### L 500.2500, L100.0500 ####[facility] [address] [place], [address] Glucose [Mass/Vol] 98 mg/dL Normal 70-99 [facility] Comment on above: Performed By: #### L 500.2500, L100.0500 ####[facility] [address] [place], [address] Potassium [Moles/Vol] 4.7 mmol/L Normal 3.3-5.1 [facility] Comment on above: Performed By: #### L 500.2500, L100.0500 ####[facility] [address] [place], [address] Sodium [Moles/Vol] 138 mmol/L Normal 133-145 [facility] Comment on above: Performed By: #### L 500.2500, L100.0500 ####[facility] [address] [place], [address] Urea nitrogen [Mass/Vol] 21 mg/dL High 4-19 [facility] Comment on above: Performed By: #### L 500.2500, L100.0500 ####[facility] [address] [place], [address] Bedside Glucoseon 02-16-2025 FINGERSTICK GLU 254 mg/dL High 74-106 [facility] Comment on above: Result Comment: KATARINA GEMENT OF PATIENT CARE PER NURSING PROTOCOL Performed By: #### L 501.080 ####[facility] [address] [place], [address] FINGERSTICK GLU 234 mg/dL High 74-106 [facility] Comment on above: Result Comment: KATARINA GEMENT OF PATIENT CARE PER NURSING PROTOCOL Performed By: #### L 501.080 ####[facility] [address] [place], [address] FINGERSTICK GLU 91 mg/dL Normal 74-106 [facility] Comment on above: Result Comment: KATARINA GEMENT OF PATIENT CARE PER NURSING PROTOCOL Performed By: #### L 501.080 ####[facility] [address] [place], [address] FINGERSTICK GLU 63 mg/dL Low 74-106 [facility] Comment on above: Result Comment: KATARINA GEMENT OF PATIENT CARE PER NURSING PROTOCOL Performed By: #### L 501.080 ####[facility] [address] [place], [address] CBC-Complete Blood Cnt No Di ffon 02-16-2025 Erythrocyte distribution width (RBC) [Ratio] 16.1 % High 11.6-14.6 [facility] Comment on above: Performed By: #### L 500.2500, L100.0500 ####[facility] [address] [place], [address] Hematocrit (Bld) [Volume fraction] 36.2 % Low 37-47 [facility] Comment on above: Performed By: #### L 500.2500, L100.0500 ####[facility] [address] [place], [address] Hemoglobin (Bld) [Mass/Vol] 11.0 g/dL Low 12.0-15.0 [facility] Comment on above: Performed By: #### L 500.2500, L100.0500 ####[facility] [address] [place], [address] MCH (RBC) [Entitic mass] 27.4 pg Normal 27.0-32.0 [facility] Comment on above: Performed By: #### L 500.2500, L100.0500 ####[facility] [address] [place], [address] MCHC (RBC) [Mass/Vol] 30.4 g/dL Low 32-36 [facility] Comment on above: Performed By: #### L 500.2500, L100.0500 ####[facility] [address] [place], [address] MCV (RBC) [Entitic vol] 90.0 fL Normal 81-99 [facility] Comment on above: Performed By: #### L 500.2500, L100.0500 ####[facility] [address] [place], [address] Platelet mean volume (Bld) [Entitic vol] 11.0 fL Normal 6.2-12.0 [facility] Comment on above: Performed By: #### L 500.2500, L100.0500 ####[facility] [address] [place], [address] Platelets (Bld) [#/Vol] 250 10*3/uL Normal 150-450 [facility] Comment on above: Performed By: #### L 500.2500, L100.0500 ####[facility] [address] [place], [address] RBC (Bld) [#/Vol] 4.02 10*6/uL Low 4.2-5.4 [facility] Comment on above: Performed By: #### L 500.2500, L100.0500 ####[facility] [address] [place], [address] RDW SD 52.3 fl High 35.1-43.9 [facility] Comment on above: Performed By: #### L 500.2500, L100.0500 ####[facility] [address] [place], [address] WBC (Bld) [#/Vol] 9.2 10*3/uL Normal 4.4-11.0 [facility] Comment on above: Performed By: #### L 500.2500, L100.0500 ####[facility] [address] [place], [address] Gram Stainon 02-16-2025 GS Acceptable Specimen? Yes (<25 Epithelial cells per/lpf) Gram Stain Rare Gram positive cocci Rare Gram positive rods No Epithelial cells Rare White Blood Cells Normal [facility] Comment on above: Performed By: #### M 100.2000, M100.2400 ####[facility] [address] [place], [address] Gram stainOrdered By: Ankit Jean-Baptiste on 02-16-2025 Microscopic observation Gram stain Nom (Unsp spec) [facility] Microbial respiratory cultur eOrdered By: Nestor Bartlett on 02-16-2025 Microorganism identified Cx Nom (Unsp spec) or Staphylococcus aureus isolated. [facility] 12 Lead EKGon 02-15-2025 12 Lead EKG Normal [facility] Absolute lymphocyte countOrd ered By: Remus Ungmasood on 02-15-2025 Lymphocytes Auto (Unsp spec) [#/Vol] 0.98 10*3/uL 0.83-4.51 [facility] Anion gap in Serum or Plasma Ordered By: Remus Ungmasood on 02-15-2025 Anion gap [Moles/Vol] 9 mmol/L 5-15 [facility] Automated lymphocyte count a s percentage of total leukocytesOrdered By: Remus Keegan on 02-15-2025 Lymphocytes/100 WBC Auto (Unsp spec) 10.9 % Low 19-41 [facility] BUN/creatinine ratioOrdered By: Remus Srinivasmasood on 02-15-2025 Urea nitrogen/Creatinine [Mass ratio] 23.1 mg/mg High 10- [facility] Basic Metabolic Profile (BMP )on 02-15-2025 BUN/CRE 23.1 RATIO High - [facility] Comment on above: Performed By: #### L 500.2500, L503.7505, L501.4021, L100.0100 ####[facility] [address] [place], [address] Calcium [Mass/Vol] 10.7 mg/dL Normal 7.6-11.0 [facility] Comment on above: Performed By: #### L 500.2500, L503.7505, L501.4021, L100.0100 ####[facility] [address] [place], [address] Chloride [Moles/Vol] 98 mmol/L Normal 98-108 [facility] Comment on above: Performed By: #### L 500.2500, L503.7505, L501.4021, L100.0100 ####[facility] [address] [place], [address] CO2 [Moles/Vol] 30.9 mmol/L Normal 21.0-32.0 [facility] Comment on above: Performed By: #### L 500.2500, L503.7505, L501.4021, L100.0100 ####[facility] [address] [place], [address] Creatinine [Mass/Vol] 1.04 mg/dL Normal 0.70-1.20 [facility] Comment on above: Performed By: #### L 500.2500, L503.7505, L501.4021, L100.0100 ####[facility] [address] [place], [address] ECRCL 41.98 ml/min Low 50-250 [facility] Comment on above: Performed By: #### L 500.2500, L503.7505, L501.4021, L100.0100 ####[facility] [address] [place], [address] GAP 9 Normal 5-15 [facility] Comment on above: Performed By: #### L 500.2500, L503.7505, L501.4021, L100.0100 ####[facility] [address] [place], [address] GFR/1.73 sq M.predicted among non-blacks MDRD (S/P/Bld) [Vol rate/Area] 54 mL/min/{1.73_m2} Low >60 [facility] Comment on above: Result Comment: mL/m in/1.73m2 CKD-EPI Creatinine Equation (2020) Performed By: #### L 500.2500, L503.7505, L501.4021, L100.0100 ####[facility] [address] [place], [address] Glucose [Mass/Vol] 97 mg/dL Normal 70-99 [facility] Comment on above: Performed By: #### L 500.2500, L503.7505, L501.4021, L100.0100 ####[facility] [address] [place], [address] Potassium [Moles/Vol] 4.3 mmol/L Normal 3.3-5.1 [facility] Comment on above: Performed By: #### L 500.2500, L503.7505, L501.4021, L100.0100 ####[facility] [address] [place], [address] Sodium [Moles/Vol] 138 mmol/L Normal 133-145 [facility] Comment on above: Performed By: #### L 500.2500, L503.7505, L501.4021, L100.0100 ####[facility] [address] [place], [address] Urea nitrogen [Mass/Vol] 24 mg/dL High 4-19 [facility] Comment on above: Performed By: #### L 500.2500, L503.7505, L501.4021, L100.0100 ####[facility] [address] [place], [address] Basophil percentageOrdered B y: Remus Ungur on 02-15-2025 Basophils/100 WBC (Bld) 0.1 % 0-1 [facility] Bedside Glucoseon 02-15-2025 FINGERSTICK GLU 152 mg/dL High 74-106 [facility] Comment on above: Result Comment: KATARINA GEMENT OF PATIENT CARE PER NURSING PROTOCOL Performed By: #### L 501.080 ####[facility] [address] [place], [address] FINGERSTICK GLU 80 mg/dL Normal 74-106 [facility] Comment on above: Result Comment: KATARINA GEMENT OF PATIENT CARE PER NURSING PROTOCOL Performed By: #### L 501.080 ####[facility] [address] [place], [address] CBC W/Diff, Automatedon 01-29 Absolute Lymph 0.98 X10 3/uL Normal 0.83-4.51 [facility] Comment on above: Performed By: #### L 500.2500, L503.7505, L501.4021, L100.0100 ####[facility] [address] [place], [address] Absolute Neut 7.5 X10 3/uL Normal 2.0-7.7 [facility] Comment on above: Performed By: #### L 500.2500, L503.7505, L501.4021, L100.0100 ####[facility] [address] [place], [address] Basophils/100 WBC (Bld) 0.1 % Normal 0-1 [facility] Comment on above: Performed By: #### L 500.2500, L503.7505, L501.4021, L100.0100 ####[facility] [address] [place], [address] Eosinophils/100 WBC (Bld) 0.7 % Normal 0-5 [facility] Comment on above: Performed By: #### L 500.2500, L503.7505, L501.4021, L100.0100 ####[facility] [address] [place], [address] Erythrocyte distribution width (RBC) [Ratio] 16.2 % High 11.6-14.6 [facility] Comment on above: Performed By: #### L 500.2500, L503.7505, L501.4021, L100.0100 ####[facility] [address] [place], [address] Hematocrit (Bld) [Volume fraction] 33.5 % Low 37-47 [facility] Comment on above: Performed By: #### L 500.2500, L503.7505, L501.4021, L100.0100 ####[facility] [address] [place], [address] Hemoglobin (Bld) [Mass/Vol] 10.1 g/dL Low 12.0-15.0 [facility] Comment on above: Performed By: #### L 500.2500, L503.7505, L501.4021, L100.0100 ####[facility] [address] [place], [address] IG% 1.000 High 0.0-0.9 [facility] Comment on above: Result Comment: IG% - Immature Granulocytes (promyelocytes, myelocytes andmetamyelocytes) > 1% indicates that a LEFT SHIFT is Present. Performed By: #### L 500.2500, L503.7505, L501.4021, L100.0100 ####[facility] [address] [place], [address] Lymphocytes/100 WBC (Bld) 10.9 % Low 19-41 [facility] Comment on above: Performed By: #### L 500.2500, L503.7505, L501.4021, L100.0100 ####[facility] [address] [place], [address] MCH (RBC) [Entitic mass] 27.0 pg Normal 27.0-32.0 [facility] Comment on above: Performed By: #### L 500.2500, L503.7505, L501.4021, L100.0100 ####[facility] [address] [place], [address] MCHC (RBC) [Mass/Vol] 30.1 g/dL Low 32-36 [facility] Comment on above: Performed By: #### L 500.2500, L503.7505, L501.4021, L100.0100 ####[facility] [address] [place], [address] MCV (RBC) [Entitic vol] 89.6 fL Normal 81-99 [facility] Comment on above: Performed By: #### L 500.2500, L503.7505, L501.4021, L100.0100 ####[facility] [address] [place], [address] Monocytes/100 WBC (Bld) 4.8 % Normal 0-10 [facility] Comment on above: Performed By: #### L 500.2500, L503.7505, L501.4021, L100.0100 ####[facility] [address] [place], [address] Neutrophils/100 WBC (Bld) 82.5 % High 47-70 [facility] Comment on above: Performed By: #### L 500.2500, L503.7505, L501.4021, L100.0100 ####[facility] [address] [place], [address] Nucleated RBC (Bld) [#/Vol] 0 10*3/uL Normal 0-5 [facility] Comment on above: Performed By: #### L 500.2500, L503.7505, L501.4021, L100.0100 ####[facility] [address] [place], [address] Platelet mean volume (Bld) [Entitic vol] 10.4 fL Normal 6.2-12.0 [facility] Comment on above: Performed By: #### L 500.2500, L503.7505, L501.4021, L100.0100 ####[facility] [address] [place], [address] Platelets (Bld) [#/Vol] 243 10*3/uL Normal 150-450 [facility] Comment on above: Performed By: #### L 500.2500, L503.7505, L501.4021, L100.0100 ####[facility] [address] [place], [address] RBC (Bld) [#/Vol] 3.74 10*6/uL Low 4.2-5.4 [facility] Comment on above: Performed By: #### L 500.2500, L503.7505, L501.4021, L100.0100 ####[facility] [address] [place], [address] RDW SD 52.9 fl High 35.1-43.9 [facility] Comment on above: Performed By: #### L 500.2500, L503.7505, L501.4021, L100.0100 ####[facility] [address] [place], [address] WBC (Bld) [#/Vol] 9.0 10*3/uL Normal 4.4-11.0 [facility] Comment on above: Performed By: #### L 500.2500, L503.7505, L501.4021, L100.0100 ####[facility] [address] [place], [address] Carbon dioxide, total [Moles /volume] in Central venous bloodOrdered By: Robert Allison on 02-15-2025 CO2 [Moles/Vol] 30.9 mmol/L 21.0-32.0 [facility] Chest 1 View (Portable)on Chest 1 View (Portable) Normal [facility] Chloride assayOrdered By: Ester Allison on 02-15-2025 Chloride [Moles/Vol] 98 mmol/L 98-108 [facility] Emergency Department Summary on 02-15-2025 Emergency Department Summary Normal [facility] Eosinophil percentageOrdered By: Robert Allison on 02-15-2025 Eosinophils/100 WBC (Bld) 0.7 % 0-5 [facility] Erythrocyte distribution wid th ratioOrdered By: Robert Allison on 02-15-2025 Erythrocyte distribution width (RBC) [Ratio] 16.2 % High 11.6-14.6 [facility] Erythrocyte distribution wid th standard deviationOrdered By: Robert Allison on 02-15-2025 Erythrocyte distribution width (RBC) [Ratio] 52.9 fl High 35.1-43.9 [facility] Glomerular filtration rate ( GFR) estimation/1.73 sq m using serum, plasma, or whole bOrdered By: Robert Allison on 02-15-2025 GFR/1.73 sq M.predicted among non-blacks MDRD (S/P/Bld) [Vol rate/Area] 54 mL/min/{1.73_m2} Low >60 [facility] H AND P Exam - Hospitaliston 02-15-2025 H&P Exam - Hospitalist Normal [facility] Hematocrit Auto (Bld) [Volum e fraction]Ordered By: Robert Allison on 02-15-2025 Hematocrit (Bld) [Volume fraction] 33.5 % Low 37-47 [facility] Hemoglobin measurementOrdere d By: Robert Allison on 02-15-2025 Hemoglobin (Bld) [Mass/Vol] 10.1 g/dL Low 12.0-15.0 [facility] Immature granulocytes/100 WB C Auto (Bld)Ordered [facility]: [facility] on 02-15-2025 Immature granulocytes/100 WBC (Bld) 1.000 % High 0.0-0.9 [facility] L499.0042on 02-15-2025 Trop T High Sen 113 ng/L Invalid Interpretation Code <=14 [facility] Comment on above: Result Comment: Crit ical Result(s) Called at: 02/15/2025-13:14 by: Pat Smiley.??Results read back by same. Performed By: #### L 499.0042 ####[facility] [address] [facility] [place], [place], [address] L499.0043on 02-15-2025 Trop T High Sen 114 ng/L Invalid Interpretation Code <=14 [facility] Comment on above: Result Comment: Hemo lysis present, Results??could be affected.??CRIT CALLED BY ARCHIE MOE AT 1607Critical Result(s) Called at: by:??Results read back bysami. Performed By: #### L 499.0043 ####[facility] [address] [place], [place], [address] L501.4021on 02-15-2025 Trop T High Sen 117 ng/L Invalid Interpretation Code <=14 [facility] Comment on above: Result Comment: Crit ical Result(s) Called at:02/15/2025-11:47 by: Pat Lopez.??Results read back by same. Performed By: #### L 500.2500, L503.7505, L501.4021, L100.0100 ####[facility] [address] [place], [address] L503.7505on 02-15-2025 Natriuretic peptide B (Bld) [Mass/Vol] 4408 pg/mL High <=1800 [facility] Comment on above: Result Comment: Hear t Failure Unlikely: < 300 pg/mLHeart Failure Likely< 50 Years: > 450 pg/mL50-75 Years: > 900 pg/mL>75 Years: > 1800 pg/mL Performed By: #### L 500.2500, L503.7505, L501.4021, L100.0100 ####[facility] [address] [place], [address] L509.7001on 02-15-2025 Procalcitonin 0.27 ng/mL High <=0.10 [facility] Comment on above: Result Comment: Inte rpretation:<0.10-0.25 ng/mL: Antibiotic therapy discouraged. Bacterialinfection unlikely.0.25-0.50 ng/mL: Antibiotic therapy encouraged. Bacterialinfection possible.>0.50 ng/mL: Antibiotic therapy strongly encouraged.Suggestive of presence of bacterial infection.PCT should always be interpreted in the clinical context ofthe patient. Therefore, clinicians should use the PCTresults in conjunction with other laboratory findings andclinical signs of the patient. Performed By: #### L 509.7001 ####[facility] [address] [place], [address] MCV (mean corpuscular volume ) determinationOrdered By: Remus Ungur on 02-15-2025 MCV (RBC) [Entitic vol] 89.6 fL 81-99 [facility] Mean corpuscular hemoglobin (MCH) determinationOrdered By: Remus Ungur on 02-15-2025 MCH (RBC) [Entitic mass] 27.0 pg 27.0-32.0 [facility] Monocyte percentageOrdered B y: Remus Ungur on 02-15-2025 Monocytes/100 WBC (Bld) 4.8 % 0-10 [facility] Natriuretic peptide.B prohor hayley N-Terminal [Mass/volume] in Serum or PlasmaOrdered By: Robert Allison on 02-15-2025 Natriuretic peptide.B prohormone N-Terminal [Mass/Vol] 4408 pg/mL High <1800 [facility] Neutrophil percentageOrdered By: Robert Allison on 02-15-2025 Neutrophils/100 WBC (Bld) 82.5 % High 47-70 [facility] Platelet countOrdered By: Ester Allison on 02-15-2025 Platelets (Bld) [#/Vol] 243 10*3/uL 150-450 [facility] Potassium measurement (mass/ volume)Ordered By: Robert Allison on 02-15-2025 Potassium (Unsp spec) [Mass/Vol] 4.3 mmol/L 3.3-5.1 [facility] Procalcitonin [Mass/volume] in Serum or Plasma by ImmunoassayOrdered By: Nestor Bartlett on 02-15-2025 Procalcitonin IA [Mass/Vol] 0.27 ng/mL High <0.11 [facility] RBC Auto (Bld) [#/Vol]Ordere d By: Robert Allison on 02-15-2025 RBC (Bld) [#/Vol] 3.74 10*6/uL Low 4.2-5.4 [facility] Serum creatinine measurement (mass/volume)Ordered By: Robert Allison on 02-15-2025 Creatinine [Mass/Vol] 1.04 mg/dL 0.70-1.20 [facility] Serum glucose measurement (m ass/volume)Ordered By: Robert Allison on 02-15-2025 Glucose [Mass/Vol] 97 mg/dL 70-99 [facility] Serum or plasma calcium melanie urement (mass/volume)Ordered By: Robert Allison on 02-15-2025 Calcium [Mass/Vol] 10.7 mg/dL 7.6-11.0 [facility] Serum or plasma urea nitroge n measurement (mass/volume)Ordered By: Robert Allison on 02-15-2025 Urea nitrogen [Mass/Vol] 24 mg/dL High 4-19 [facility] Sodium levelOrdered By: Lorena Allison on 02-15-2025 Sodium [Moles/Vol] 138 mmol/L 133-145 [facility] Troponin T.cardiac [Mass/vol ume] in Serum or Plasma by High sensitivity methodOrdered By: Robert Allison on 02-15-2025 Troponin T.cardiac High sensitivity method [Mass/Vol] 114 ng/L High <14 [facility] Troponin T.cardiac High sensitivity method [Mass/Vol] 113 ng/L High <14 [facility] Troponin T.cardiac High sensitivity method [Mass/Vol] 117 ng/L High <14 [facility] White blood cell (WBC) count Ordered By: Robert Allison on 02-15-2025 WBC (Bld) [#/Vol] 9.0 10*3/uL 4.4-11.0 [facility] Bedside Glucoseon 02-13-2025 FINGERSTICK GLU 337 mg/dL High 74-106 [facility] Comment on above: Result Comment: KATARINA GEMENT OF PATIENT CARE PER NURSING PROTOCOL Performed By: #### L 501.080 ####[facility] [address] [place], [address] FINGERSTICK GLU 302 mg/dL High [address] [place] [address] Comment on above: Result Comment: KATARINA GEMENT OF PATIENT CARE PER NURSING PROTOCOL Performed By: #### L 501.080 ####[facility] [address] [place], [address] Discharge Instructionon 01-29 Discharge Instruction Normal [facility] Glucose measurement at [facility] deOrdered By: Lucio Borden on 02-13-2025 Glucose [Mass/Vol] 337 mg/dL High 74-106 [facility] Bedside Glucoseon 02-12-2025 FINGERSTICK GLU 236 mg/dL High -106 [facility] Comment on above: Result Comment: KATARINA GEMENT OF PATIENT CARE PER NURSING PROTOCOL Performed By: #### L 501.080 ####[facility] [address] [place], [address] FINGERSTICK GLU 112 mg/dL High -106 [facility] Comment on above: Result Comment: KATARINA GEMENT OF PATIENT CARE PER NURSING PROTOCOL Performed By: #### L 501.080 ####[facility] [address] [place], [address] FINGERSTICK GLU 471 mg/dL Invalid Interpretation Code [address] [place] [address] Comment on above: Result Comment: Dr Carina javier FollowedMANAGEMENT OF PATIENT CARE PER NURSING PROTOCOL Performed By: #### L 501.080 ####[facility] [address] [place], [address] FINGERSTICK GLU 492 mg/dL Invalid Interpretation Code [address] [place] [address] Comment on above: Result Comment: Repe at TestMANAGEMENT OF PATIENT CARE PER NURSING PROTOCOL Performed By: #### L 501.080 ####[facility] [address] [place], [address] FINGERSTICK GLU 243 mg/dL High [address] [place] [address] Comment on above: Result Comment: KATARINA GEMENT OF PATIENT CARE PER NURSING PROTOCOL Performed By: #### L 501.080 ####[facility] [address] [place], [address] FINGERSTICK GLU 312 mg/dL High [address] [place] [address] Comment on above: Result Comment: KATARINA GEMENT OF PATIENT CARE PER NURSING PROTOCOL Performed By: #### L 501.080 ####[facility] [address] [place], [address] FINGERSTICK GLU 246 mg/dL High [address] [place] [address] Comment on above: Result Comment: KATARINA GEMENT OF PATIENT CARE PER NURSING PROTOCOL Performed By: #### L 501.080 ####[facility] [address] [place], [address] Bedside Glucoseon 02-11-2025 FINGERSTICK GLU 276 mg/dL High [address] [place] [address] Comment on above: Result Comment: KATARINA GEMENT OF PATIENT CARE PER NURSING PROTOCOL Performed By: #### L 501.080 ####[facility] [address] [place], [address] FINGERSTICK GLU 124 mg/dL High [address] [place] [address] Comment on above: Result Comment: KATARINA GEMENT OF PATIENT CARE PER NURSING PROTOCOL Performed By: #### L 501.080 ####[facility] [address] [place], [address] FINGERSTICK GLU 257 mg/dL High [address] [place] [address] Comment on above: Result Comment: KATARINA GEMENT OF PATIENT CARE PER NURSING PROTOCOL Performed By: #### L 501.080 ####[facility] [address] [place], [address] FINGERSTICK GLU 305 mg/dL High [address] [place] [address] Comment on above: Result Comment: KATARINA GEMENT OF PATIENT CARE PER NURSING PROTOCOL Performed By: #### L 501.080 ####[facility] [address] [place], [address] FINGERSTICK GLU 242 mg/dL High [address] [place] [address] Comment on above: Result Comment: KATARINA GEMENT OF PATIENT CARE PER NURSING PROTOCOL Performed By: #### L 501.080 ####[facility] [address] [place], [address] FINGERSTICK GLU 206 mg/dL High [address] [place] [address] Comment on above: Result Comment: KATARINA GEMENT OF PATIENT CARE PER NURSING PROTOCOL Performed By: #### L 501.080 ####[facility] [address] [place], [address] Anion gap in Serum or Plasma Ordered By: Lucio Borden on 02-10-2025 Anion gap [Moles/Vol] 14 mmol/L 5-15 [facility] BUN/creatinine ratioOrdered By: Lucio Borden on 02-10-2025 Urea nitrogen/Creatinine [Mass ratio] 20.8 mg/mg High 10-20 [facility] Basic Metabolic Profile (BMP )on 02-10-2025 BUN/CRE 20.8 RATIO High 10-20 [facility] Comment on above: Performed By: #### L 500.2500 ####[facility] [address] [place], [address] Calcium [Mass/Vol] 10.0 mg/dL Normal 7.6-11.0 [facility] Comment on above: Performed By: #### L 500.2500 ####[facility] [address] [place], [address] Chloride [Moles/Vol] 98 mmol/L Normal 98-108 [facility] Comment on above: Performed By: #### L 500.2500 ####[facility] [address] [place], [address] CO2 [Moles/Vol] 26.8 mmol/L Normal 21.0-32.0 [facility] Comment on above: Performed By: #### L 500.2500 ####[facility] [address] [place], [address] Creatinine [Mass/Vol] 1.10 mg/dL Normal 0.70-1.20 [facility] Comment on above: Performed By: #### L 500.2500 ####[facility] [address] [place], [address] ECRCL 39.32 ml/min Low 50-250 [facility] Comment on above: Performed By: #### L 500.2500 ####[facility] [address] [place], [address] GAP 14 Normal 5-15 [facility] Comment on above: Performed By: #### L 500.2500 ####[facility] [address] [place], [address] GFR/1.73 sq M.predicted among non-blacks MDRD (S/P/Bld) [Vol rate/Area] 50 mL/min/{1.73_m2} Low >60 [facility] Comment on above: Result Comment: mL/m in/1.73m2 CKD-EPI Creatinine Equation (2020) Performed By: #### L 500.2500 ####[facility] [address] [place], [address] Glucose [Mass/Vol] 361 mg/dL High 70-99 [facility] Comment on above: Performed By: #### L 500.2500 ####[facility] [address] [place], [address] Potassium [Moles/Vol] 4.9 mmol/L Normal 3.3-5.1 [facility] Comment on above: Performed By: #### L 500.2500 ####[facility] [address] [place], [address] Sodium [Moles/Vol] 139 mmol/L Normal 133-145 [facility] Comment on above: Performed By: #### L 500.2500 ####[facility] [address] [place], [address] Urea nitrogen [Mass/Vol] 23 mg/dL High 4-19 [facility] Comment on above: Performed By: #### L 500.2500 ####[facility] [address] [place], [address] Bedside Glucoseon 02-10-2025 FINGERSTICK GLU 167 mg/dL High 74-106 [facility] Comment on above: Result Comment: KATARINA GEMENT OF PATIENT CARE PER NURSING PROTOCOL Performed By: #### L 501.080 ####[facility] [address] [place], [address] FINGERSTICK GLU 78 mg/dL Normal 74-106 [facility] Comment on above: Result Comment: KATARINA GEMENT OF PATIENT CARE PER NURSING PROTOCOL Performed By: #### L 501.080 ####[facility] [address] [place], [address] FINGERSTICK GLU 64 mg/dL Low 74-106 [facility] Comment on above: Result Comment: KATARINA GEMENT OF PATIENT CARE PER NURSING PROTOCOL Performed By: #### L 501.080 ####[facility] [address] [place], [address] FINGERSTICK GLU 222 mg/dL High 74-106 [facility] Comment on above: Result Comment: KATARINA GEMENT OF PATIENT CARE PER NURSING PROTOCOL Performed By: #### L 501.080 ####[facility] [address] [place], [address] Carbon dioxide, total [Moles /volume] in Central venous bloodOrdered By: Lucio Borden on 02-10-2025 CO2 [Moles/Vol] 26.8 mmol/L 21.0-32.0 [facility] Chloride assayOrdered By: Chen Borden on 02-10-2025 Chloride [Moles/Vol] 98 mmol/L 98-108 [facility] Glomerular filtration rate ( GFR) estimation/1.73 sq m using serum, plasma, or whole bOrdered By: Lucio Borden on 02-10-2025 GFR/1.73 sq M.predicted among non-blacks MDRD (S/P/Bld) [Vol rate/Area] 50 mL/min/{1.73_m2} Low >60 [facility] Potassium measurement (mass/ volume)Ordered By: Lucio Borden on 02-10-2025 Potassium (Unsp spec) [Mass/Vol] 4.9 mmol/L 3.3-5.1 [facility] RESPIRATORY PANEL MOLECULARo n 02-10-2025 RP PANEL Normal [facility] Comment on above: Performed By: #### M 100.638 ####[facility] [address] [place], [address] Serum creatinine measurement (mass/volume)Ordered By: Lucio Borden on 02-10-2025 Creatinine [Mass/Vol] 1.10 mg/dL 0.70-1.20 [facility] Serum glucose measurement (m ass/volume)Ordered By: Lucio Borden on 02-10-2025 Glucose [Mass/Vol] 361 mg/dL High 70-99 [facility] Serum or plasma calcium melanie urement (mass/volume)Ordered By: Lucio Borden on 02-10-2025 Calcium [Mass/Vol] 10.0 mg/dL 7.6-11.0 [facility] Serum or plasma urea nitroge n measurement (mass/volume)Ordered By: Lucio Borden on 02-10-2025 Urea nitrogen [Mass/Vol] 23 mg/dL High 4-19 [facility] Sodium levelOrdered By: Lucio Borden on 02-10-2025 Sodium [Moles/Vol] 139 mmol/L 133-145 [facility] Absolute lymphocyte countOrd ered By: Jeremiah Corrales on 02-09-2025 Lymphocytes Auto (Unsp spec) [#/Vol] 0.69 10*3/uL Low 0.83-4.51 [facility] Anion gap in Serum or Plasma Ordered By: Jeremiah Corrales on 02-09-2025 Anion gap [Moles/Vol] 12 mmol/L 5-15 [facility] Automated lymphocyte count a s percentage of total leukocytesOrdered By: Jeremiah Corrales on 02-09-2025 Lymphocytes/100 WBC Auto (Unsp spec) 7.3 % Low 19-41 [facility] BUN/creatinine ratioOrdered By: Jeremiah Corrales on 02-09-2025 Urea nitrogen/Creatinine [Mass ratio] 20.2 mg/mg High 10-20 [facility] Basic Metabolic Profile (BMP )on 02-09-2025 BUN/CRE 20.2 RATIO High 10-20 [facility] Comment on above: Performed By: #### L 100.0100, L501.4021, L500.2500 ####[facility] [address] [place], [address] Calcium [Mass/Vol] 10.2 mg/dL Normal 7.6-11.0 [facility] Comment on above: Performed By: #### L 100.0100, L501.4021, L500.2500 ####[facility] [address] [place], [address] Chloride [Moles/Vol] 98 mmol/L Normal 98-108 [facility] Comment on above: Performed By: #### L 100.0100, L501.4021, L500.2500 ####[facility] [address] [place], [address] CO2 [Moles/Vol] 29.9 mmol/L Normal 21.0-32.0 [facility] Comment on above: Performed By: #### L 100.0100, L501.4021, L500.2500 ####[facility] [address] [place], [address] Creatinine [Mass/Vol] 1.16 mg/dL Normal 0.70-1.20 [facility] Comment on above: Performed By: #### L 100.0100, L501.4021, L500.2500 ####[facility] [address] [place] [place], [address] ECRCL 37.42 ml/min Low 50-250 [facility] Comment on above: Performed By: #### L 100.0100, L501.4021, L500.2500 ####[facility] [address] [place], [address] GAP 12 Normal 5-15 [facility] Comment on above: Performed By: #### L 100.0100, L501.4021, L500.2500 ####[facility] [address] [place], [address] GFR/1.73 sq M.predicted among non-blacks MDRD (S/P/Bld) [Vol rate/Area] 47 mL/min/{1.73_m2} Low >60 [facility] Comment on above: Result Comment: mL/m in/1.73m2 CKD-EPI Creatinine Equation (2020) Performed By: #### L 100.0100, L501.4021, L500.2500 ####[facility] [address] [place], [address] Glucose [Mass/Vol] 173 mg/dL High 70-99 [facility] Comment on above: Performed By: #### L 100.0100, L501.4021, L500.2500 ####[facility] [address] [place], [address] Potassium [Moles/Vol] 4.3 mmol/L Normal 3.3-5.1 [facility] Comment on above: Performed By: #### L 100.0100, L501.4021, L500.2500 ####[facility] [address] [place], [address] Sodium [Moles/Vol] 140 mmol/L Normal 133-145 [facility] Comment on above: Performed By: #### L 100.0100, L501.4021, L500.2500 ####[facility] [address] [place], [address] Urea nitrogen [Mass/Vol] 23 mg/dL High 4-19 [facility] Comment on above: Performed By: #### L 100.0100, L501.4021, L500.2500 ####[facility] [address] [place], [address] Basophil percentageOrdered B y: Jeremiah Corrales on 02-09-2025 Basophils/100 WBC (Bld) 0.4 % 0-1 [facility] Bedside Glucoseon 02-09-2025 FINGERSTICK GLU 401 mg/dL High 74-106 [facility] Comment on above: Result Comment: KATARINA GEMENT OF PATIENT CARE PER NURSING PROTOCOL Performed By: #### L 501.080 ####[facility] [address] [place], [address] FINGERSTICK GLU 248 mg/dL High 74-106 [facility] Comment on above: Result Comment: KATARINA GEMENT OF PATIENT CARE PER NURSING PROTOCOL Performed By: #### L 501.080 ####[facility] [address] [place], [address] CBC W/Diff, Automatedon 01-29 PLT EST ADEQUATE Normal ADEQ [facility] Comment on above: Performed By: #### L 100.0100, L501.4021, L500.2500 ####[facility] [address] [place], [address] Carbon dioxide, total [Moles /volume] in Central venous bloodOrdered By: Jeremiah Corrales on 02-09-2025 CO2 [Moles/Vol] 29.9 mmol/L 21.0-32.0 [facility] Chest PA and Lateralon 02-09 Chest PA and Lateral Normal [facility] Chloride assayOrdered By: Enio Corrales on 02-09-2025 Chloride [Moles/Vol] 98 mmol/L 98-108 [facility] Emergency Department Summary on 02-09-2025 Emergency Department Summary Normal [facility] Eosinophil percentageOrdered By: Jeremiah Corralse on 02-09-2025 Eosinophils/100 WBC (Bld) 0.1 % 0-5 [facility] Erythrocyte distribution wid th ratioOrdered By: Jeremiah Corrales on 02-09-2025 Erythrocyte distribution width (RBC) [Ratio] 15.8 % High 11.6-14.6 [facility] Erythrocyte distribution wid th standard deviationOrdered By: Jeremiah Corrales on 02-09-2025 Erythrocyte distribution width (RBC) [Ratio] 51.3 fl High 35.1-43.9 [facility] Glomerular filtration rate ( GFR) estimation/1.73 sq m using serum, plasma, or whole bOrdered By: Jeremiah Corrales on 02-09-2025 GFR/1.73 sq M.predicted among non-blacks MDRD (S/P/Bld) [Vol rate/Area] 47 mL/min/{1.73_m2} Low >60 [facility] H AND P Exam - Hospitaliston 02-09-2025 H&P Exam - Hospitalist Normal [facility] Hematocrit Auto (Bld) [Volum e fraction]Ordered By: Jeremiah Corrales on 02-09-2025 Hematocrit (Bld) [Volume fraction] 37.9 % 37-47 [facility] Hemoglobin measurementOrdere d By: Jeremiah Corrales on 02-09-2025 Hemoglobin (Bld) [Mass/Vol] 11.5 g/dL Low 12.0-15.0 [facility] Immature granulocytes/100 WB C Auto (Bld)Ordered By: Jeremiah Corrales on 02-09-2025 Immature granulocytes/100 WBC (Bld) 0.800 % 0.0-0.9 [facility] L499.0042on 02-09-2025 Trop T High Sen 119 ng/L Invalid Interpretation Code <=14 [facility] Comment on above: Result Comment: Crit ical Result(s) Called VANE GRAVES at: 1520 by:VIET??Results read back by same. Performed By: #### L 499.0042 ####[facility] [address] [place], [place], [id number] L501.4021on 02-09-2025 Trop T High Sen 122 ng/L Invalid Interpretation Code <=14 [facility] Comment on above: Result Comment: Crit ical Result(s) Called at 1330: by: SHARONA ROWELL. ??Results read back by same. Performed By: #### L 100.0100, L501.4021, L500.2500 ####[facility] [address] [place], [place], [id number] L503.7505on 02-09-2025 Natriuretic peptide B (Bld) [Mass/Vol] 9616 pg/mL High <=1800 [facility] Comment on above: Result Comment: Hear t Failure Unlikely: < 300 pg/mLHeart Failure Likely< 50 Years: > 450 pg/mL50-75 Years: > 900 pg/mL>75 Years: > 1800 pg/mL Performed By: #### L 503.7505 ####[facility] [address] [place], [place], [id number] MCV (mean corpuscular volume ) determinationOrdered By: Jeremiah Corrales on 02-09-2025 MCV (RBC) [Entitic vol] 89.8 fL 81-99 [facility] Mean corpuscular hemoglobin (MCH) determinationOrdered By: Jeremiah Corrales on 02-09-2025 MCH (RBC) [Entitic mass] 27.3 pg 27.0-32.0 [facility] Monocyte percentageOrdered B y: Jeremiah Corrales on 02-09-2025 Monocytes/100 WBC (Bld) 4.5 % 0-10 [facility] Natriuretic peptide.B prohor hayley N-Terminal [Mass/volume] in Serum or PlasmaOrdered By: Jeremiah Corrales on 02-09-2025 Natriuretic peptide.B prohormone N-Terminal [Mass/Vol] 9616 pg/mL High <1800 [facility] Neutrophil percentageOrdered By: Jeremiah Corrales on 02-09-2025 Neutrophils/100 WBC (Bld) 86.9 % High 47-70 [facility] Platelet countOrdered By: Enio Corrales on 02-09-2025 Platelet count TNP [facility] Platelet estimateOrdered By: Jeremiah Corrales on 02-09-2025 Platelets LM Ql (Bld) ADEQUATE ADEQ [facility] Potassium measurement (mass/ volume)Ordered By: Jeremiah Corrales on 02-09-2025 Potassium (Unsp spec) [Mass/Vol] 4.3 mmol/L 3.3-5.1 [facility] RBC Auto (Bld) [#/Vol]Ordere d By: Jeremiah Corrales on 02-09-2025 RBC (Bld) [#/Vol] 4.22 10*6/uL 4.2-5.4 [facility] Respiratory pathogens detect ion panel by molecular detection methodOrdered By: Tono Gomez on 02-09-2025 Respiratory pathogens DNA and RNA panel BEBETO+probe (Resp) Parainfluenza 3 Abnormal [facility] Serum creatinine measurement (mass/volume)Ordered By: Jeremiah Corrales on 02-09-2025 Creatinine [Mass/Vol] 1.16 mg/dL 0.70-1.20 [facility] Serum glucose measurement (m ass/volume)Ordered By: Jeremiah Corrales on 02-09-2025 Glucose [Mass/Vol] 173 mg/dL High 70-99 [facility] Serum or plasma calcium melanie urement (mass/volume)Ordered By: Jeremiah Corrales on 02-09-2025 Calcium [Mass/Vol] 10.2 mg/dL 7.6-11.0 [facility] Serum or plasma urea nitroge n measurement (mass/volume)Ordered By: Jeremiah Corrales on 02-09-2025 Urea nitrogen [Mass/Vol] 23 mg/dL High 4-19 [facility] Sodium levelOrdered By: Jeremiah Corrales on 02-09-2025 Sodium [Moles/Vol] 140 mmol/L 133-145 [facility] Troponin T.cardiac [Mass/vol ume] in Serum or Plasma by High sensitivity methodOrdered By: Jeremiah Corrales on 02-09-2025 Troponin T.cardiac High sensitivity method [Mass/Vol] 119 ng/L High <14 [facility] Troponin T.cardiac High sensitivity method [Mass/Vol] 122 ng/L High <14 [facility] White blood cell (WBC) count Ordered By: Jeremiah Corrales on 02-09-2025 WBC (Bld) [#/Vol] 9.4 10*3/uL 4.4-11.0 [facility] Absolute lymphocyte countOrd ered By: Ramone Smiley on 02-07-2025 Lymphocytes Auto (Unsp spec) [#/Vol] 0.84 10*3/uL 0.83-4.51 [facility] Anion gap in Serum or Plasma Ordered By: Ramone Smiley on 02-07-2025 Anion gap [Moles/Vol] 12 mmol/L 5-15 [facility] Automated lymphocyte count a s percentage of total leukocytesOrdered By: Ramone Smiley on 02-07-2025 Lymphocytes/100 WBC Auto (Unsp spec) 7.3 % Low 19-41 [facility] BUN/creatinine ratioOrdered By: Ramone Smiley on 02-07-2025 Urea nitrogen/Creatinine [Mass ratio] 17.7 mg/mg 10-20 [facility] Basophil percentageOrdered B y: Ramone Smiley on 02-07-2025 Basophils/100 WBC (Bld) 0.1 % 0- [facility] Bilirubin, totalOrdered By: Ramone Smiley on 02-07-2025 Bilirubin [Mass/Vol] 0.25 mg/dL 0.00-1.30 [facility] CBC W/Diff, Automatedon 01-29 Absolute Lymph 0.84 X10 3/uL Normal 0.83-4.51 [facility] Comment on above: Order Comment: Order Date: 02/07/25Order Info: 0184-1 - CBCD Performed By: #### L 100.0100, L500.4050 ####[facility] [address] [place], [address] Absolute Neut 10.0 X10 3/uL High 2.0-7.7 [facility] Comment on above: Order Comment: Order Date: 02/07/25Order Info: 0184-1 - CBCD Performed By: #### L 100.0100, L500.4050 ####[facility] [address] [place], [address] Basophils/100 WBC (Bld) 0.1 % Normal 0-1 [facility] Comment on above: Order Comment: Order Date: 02/07/25Order Info: 0184-1 - CBCD Performed By: #### L 100.0100, L500.4050 ####[facility] [address] [place], [address] Eosinophils/100 WBC (Bld) 0.0 % Normal 0-5 [facility] Comment on above: Order Comment: Order Date: 02/07/25Order Info: 0184-1 - CBCD Performed By: #### L 100.0100, L500.4050 ####[facility] [address] [place], [address] Erythrocyte distribution width (RBC) [Ratio] 15.7 % High 11.6-14.6 [facility] Comment on above: Order Comment: Order Date: 02/07/25Order Info: 0184-1 - CBCD Performed By: #### L 100.0100, L500.4050 ####[facility] [address] [place], [address] Hematocrit (Bld) [Volume fraction] 36.8 % Low 37-47 [facility] Comment on above: Order Comment: Order Date: 02/07/25Order Info: 018-1 - CBCD Performed By: #### L 100.0100, L500.4050 ####[facility] [address] [place], [address] Hemoglobin (Bld) [Mass/Vol] 11.4 g/dL Low 12.0-15.0 [facility] Comment on above: Order Comment: Order Date: 02/07/25Order Info: 018-1 - CBCD Performed By: #### L 100.0100, L500.4050 ####[facility] [address] [place], [address] IG% 0.400 Normal 0.0-0.9 [facility] Comment on above: Order Comment: Order Date: 02/07/25Order Info: 018- - CBCD Result Comment: IG% - Immature Granulocytes (promyelocytes, myelocytes andmetamyelocytes) > 1% indicates that a LEFT SHIFT is Present. Performed By: #### L 100.0100, L500.4050 ####[facility] [address] [place], [address] Lymphocytes/100 WBC (Bld) 7.3 % Low 19-41 [facility] Comment on above: Order Comment: Order Date: 02/07/25Order Info: 018-1 - CBCD Performed By: #### L 100.0100, L500.4050 ####[facility] [address] [place], [address] MCH (RBC) [Entitic mass] 27.9 pg Normal 27.0-32.0 [facility] Comment on above: Order Comment: Order Date: 02/07/25Order Info: 018- - CBCD Performed By: #### L 100.0100, L500.4050 ####[facility] [address] [place], [address] MCHC (RBC) [Mass/Vol] 31.0 g/dL Low 32-36 [facility] Comment on above: Order Comment: Order Date: 02/07/25Order Info: 0184-1 - CBCD Performed By: #### L 100.0100, L500.4050 ####[facility] [address] [place], [address] MCV (RBC) [Entitic vol] 90.2 fL Normal 81-99 [facility] Comment on above: Order Comment: Order Date: 02/07/25Order Info: 0184-1 - CBCD Performed By: #### L 100.0100, L500.4050 ####[facility] [address] [place], [address] Monocytes/100 WBC (Bld) 5.2 % Normal 0-10 [facility] Comment on above: Order Comment: Order Date: 02/07/25Order Info: 0184-1 - CBCD Performed By: #### L 100.0100, L500.4050 ####[facility] [address] [place], [address] Neutrophils/100 WBC (Bld) 87.0 % High 47-70 [facility] Comment on above: Order Comment: Order Date: 02/07/25Order Info: 0184-1 - CBCD Performed By: #### L 100.0100, L500.4050 ####[facility] [address] [place], [address] Nucleated RBC (Bld) [#/Vol] 0 10*3/uL Normal 0-5 [facility] Comment on above: Order Comment: Order Date: 02/07/25Order Info: 0184-1 - CBCD Performed By: #### L 100.0100, L500.4050 ####[facility] [address] [place], [address] Platelet mean volume (Bld) [Entitic vol] 11.5 fL Normal 6.2-12.0 [facility] Comment on above: Order Comment: Order Date: 02/07/25Order Info: 0184-1 - CBCD Performed By: #### L 100.0100, L500.4050 ####[facility] [address] [place], [address] Platelets (Bld) [#/Vol] 247 10*3/uL Normal 150-450 [facility] Comment on above: Order Comment: Order Date: 02/07/25Order Info: 0184-1 - CBCD Performed By: #### L 100.0100, L500.4050 ####[facility] [address] [place], [address] RBC (Bld) [#/Vol] 4.08 10*6/uL Low 4.2-5.4 [facility] Comment on above: Order Comment: Order Date: 02/07/25Order Info: 0184-1 - CBCD Performed By: #### L 100.0100, L500.4050 ####[facility] [address] [place], [address] RDW SD 51.8 fl High 35.1-43.9 [facility] Comment on above: Order Comment: Order Date: 02/07/25Order Info: 0184-1 - CBCD Performed By: #### L 100.0100, L500.4050 ####[facility] [address] [place], [address] WBC (Bld) [#/Vol] 11.5 10*3/uL High 4.4-11.0 [facility] Comment on above: Order Comment: Order Date: 02/07/25Order Info: 0184-1 - CBCD Performed By: #### L 100.0100, L500.4050 ####[facility] [address] [place], [address] Carbon dioxide, total [Moles /volume] in Central venous bloodOrdered By: Ramone Smiley on 06-10-2025 CO2 [Moles/Vol] 27.9 mmol/L 21.0-32.0 [facility] Chloride assayOrdered By: Richar Smiley on 02-07-2025 Chloride [Moles/Vol] 96 mmol/L Low 98-108 [facility] Comprehensive Metabolic Prof ilon 02-07-2025 Albumin [Mass/Vol] 3.3 g/dL Low 3.4-4.8 [facility] Comment on above: Order Comment: URINE UTOOrder Date: 02/07/25Order Info: 0786-1 - CMP Performed By: #### L 100.0100, L500.4050 ####[facility] [address] [place], [address] Albumin/Globulin [Mass ratio] 1.0 {ratio} Normal 0.9-2.4 [facility] Comment on above: Order Comment: URINE UTOOrder Date: 02/07/25Order Info: 0786-1 - CMP Performed By: #### L 100.0100, L500.4050 ####[facility] [address] [place], [address] ALK PHOS 86 U/L Normal 35-104 [facility] Comment on above: Order Comment: URINE UTOOrder Date: 02/07/25Order Info: 0786-1 - CMP Performed By: #### L 100.0100, L500.4050 ####[facility] [address] [place], [address] ALT [Catalytic activity/Vol] 20 U/L Normal <=34 [facility] Comment on above: Order Comment: URINE UTOOrder Date: 02/07/25Order Info: 0786-1 - CMP Performed By: #### L 100.0100, L500.4050 ####[facility] [address] [place], [address] AST [Catalytic activity/Vol] 29 U/L Normal <=31 [facility] Comment on above: Order Comment: URINE UTOOrder Date: 02/07/25Order Info: 0786-1 - CMP Performed By: #### L 100.0100, L500.4050 ####[facility] [address] [place], [address] Bilirubin [Mass/Vol] 0.25 mg/dL Normal 0.00-1.30 [facility] Comment on above: Order Comment: URINE UTOOrder Date: 02/07/25Order Info: 0786-1 - CMP Performed By: #### L 100.0100, L500.4050 ####[facility] [address] [place], [address] BUN/CRE 17.7 RATIO Normal 10-20 [facility] Comment on above: Order Comment: URINE UTOOrder Date: 02/07/25Order Info: 0786-1 - CMP Performed By: #### L 100.0100, L500.4050 ####[facility] [address] [place], [address] Calcium [Mass/Vol] 10.2 mg/dL Normal 7.6-11.0 [facility] Comment on above: Order Comment: URINE UTOOrder Date: 02/07/25Order Info: 0786-1 - CMP Performed By: #### L 100.0100, L500.4050 ####[facility] [address] [place], [address] Chloride [Moles/Vol] 96 mmol/L Low 98-108 [facility] Comment on above: Order Comment: URINE UTOOrder Date: 02/07/25Order Info: 0786-1 - CMP Performed By: #### L 100.0100, L500.4050 ####[facility] [address] [place], [address] CO2 [Moles/Vol] 27.9 mmol/L Normal 21.0-32.0 [facility] Comment on above: Order Comment: URINE UTOOrder Date: 02/07/25Order Info: 0786-1 - CMP Performed By: #### L 100.0100, L500.4050 ####[facility] [address] [place], [address] Creatinine [Mass/Vol] 1.37 mg/dL High 0.70-1.20 [facility] Comment on above: Order Comment: URINE UTOOrder Date: 02/07/25Order Info: 0786-1 - CMP Performed By: #### L 100.0100, L500.4050 ####[facility] [address] [place], [address] GAP 12 Normal 5-15 [facility] Comment on above: Order Comment: URINE UTOOrder Date: 02/07/25Order Info: 0786-1 - CMP Performed By: #### L 100.0100, L500.4050 ####[facility] [address] [place], [address] GFR/1.73 sq M.predicted among non-blacks MDRD (S/P/Bld) [Vol rate/Area] 39 mL/min/{1.73_m2} Low >60 [facility] Comment on above: Order Comment: URINE UTOOrder Date: 02/07/25Order Info: 0786-1 - CMP Result Comment: mL/m in/1.73m2 CKD-EPI Creatinine Equation (2020) Performed By: #### L 100.0100, L500.4050 ####[facility] [address] [place], [address] Globulin (S) [Mass/Vol] 3.2 g/dL Normal 2.2-4.2 [facility] Comment on above: Order Comment: URINE UTOOrder Date: 02/07/25Order Info: 0786-1 - CMP Performed By: #### L 100.0100, L500.4050 ####[facility] [address] [place], [address] Glucose [Mass/Vol] 254 mg/dL High 70-99 [facility] Comment on above: Order Comment: URINE UTOOrder Date: 02/07/25Order Info: 785-1 - CMP Performed By: #### L 100.0100, L500.4050 ####[facility] [address] [place], [address] Potassium [Moles/Vol] 5.1 mmol/L Normal 3.3-5.1 [facility] Comment on above: Order Comment: URINE UTOOrder Date: 02/07/25Order Info: 785-1 - CMP Performed By: #### L 100.0100, L500.4050 ####[facility] [address] [place], [address] Sodium [Moles/Vol] 136 mmol/L Normal 133-145 [facility] Comment on above: Order Comment: URINE UTOOrder Date: 02/07/25Order Info: 785-1 - CMP Performed By: #### L 100.0100, L500.4050 ####[facility] [address] [place], [address] T PROT 6.5 g/dL Normal 5.9-8.4 [facility] Comment on above: Order Comment: URINE UTOOrder Date: 02/07/25Order Info: 785-1 - CMP Performed By: #### L 100.0100, L500.4050 ####[facility] [address] [place], [address] Urea nitrogen [Mass/Vol] 24 mg/dL High 4-19 [facility] Comment on above: Order Comment: URINE UTOOrder Date: 02/07/25Order Info: 86-1 - CMP Performed By: #### L 100.0100, L500.4050 ####[facility] [address] [place], [address] Eosinophil percentageOrdered By: Ramone Smiley on 02-07-2025 Eosinophils/100 WBC (Bld) 0.0 % 0-5 [facility] Erythrocyte distribution wid th ratioOrdered By: Ramone Smiley on 02-07-2025 Erythrocyte distribution width (RBC) [Ratio] 15.7 % High 11.6-14.6 [facility] Erythrocyte distribution wid th standard deviationOrdered By: Ramone Smiley on 02-07-2025 Erythrocyte distribution width (RBC) [Ratio] 51.8 fl High 35.1-43.9 [facility] Glomerular filtration rate ( GFR) estimation/1.73 sq m using serum, plasma, or whole bOrdered By: Ramone Smiley on 02-07-2025 GFR/1.73 sq M.predicted among non-blacks MDRD (S/P/Bld) [Vol rate/Area] 39 mL/min/{1.73_m2} Low >60 [facility] Hematocrit Auto (Bld) [Volum e fraction]Ordered By: Ramone Smiley on 02-07-2025 Hematocrit (Bld) [Volume fraction] 36.8 % Low 37-47 [facility] Hemoglobin measurementOrdere d By: Ramone Smiley on 02-07-2025 Hemoglobin (Bld) [Mass/Vol] 11.4 g/dL Low 12.0-15.0 [facility] Immature granulocytes/100 WB C Auto (Bld)Ordered By: Ramone Smiley on 02-07-2025 Immature granulocytes/100 WBC (Bld) 0.400 % 0.0-0.9 [facility] MCV (mean corpuscular volume ) determinationOrdered By: Ramone Smiley on 02-07-2025 MCV (RBC) [Entitic vol] 90.2 fL 81-99 [facility] Mean corpuscular hemoglobin (MCH) determinationOrdered By: Ramone Smiley on 02-07-2025 MCH (RBC) [Entitic mass] 27.9 pg 27.0-32.0 [facility] Monocyte percentageOrdered B y: Ramone Smiley on 02-07-2025 Monocytes/100 WBC (Bld) 5.2 % 0-10 [facility] Neutrophil percentageOrdered By: Ramone Smiley on 02-07-2025 Neutrophils/100 WBC (Bld) 87.0 % High 47-70 [facility] No Panel InformationOrdered By: Ramone Smiley on 02-07-2025 29 U/L <32 [facility] Platelet countOrdered By: Richar Smiley on 02-07-2025 Platelets (Bld) [#/Vol] 247 10*3/uL 150-450 [facility] Potassium measurement (mass/ volume)Ordered By: Ramone Smiley on 02-07-2025 Potassium (Unsp spec) [Mass/Vol] 5.1 mmol/L 3.3-5.1 [facility] RBC Auto (Bld) [#/Vol]Ordere d By: Ramone Smiley on 02-07-2025 RBC (Bld) [#/Vol] 4.08 10*6/uL Low 4.2-5.4 [facility] Serum creatinine measurement (mass/volume)Ordered By: Ramone Smiley on 02-07-2025 Creatinine [Mass/Vol] 1.37 mg/dL High 0.70-1.20 [facility] Serum globulin measurementOr dered By: Ramone Smiley on 02-07-2025 Globulin (S) [Mass/Vol] 3.2 g/dL 2.2-4.2 [facility] Serum glucose measurement (m ass/volume)Ordered By: Ramone Smiley on 02-07-2025 Glucose [Mass/Vol] 254 mg/dL High 70-99 [facility] Serum or plasma alanine kelley otransferase (ALT) measurementOrdered By: Ramone Smiley on 02-07-2025 ALT [Catalytic activity/Vol] 20 U/L <35 [facility] Serum or plasma albumin melanie urement (mass/volume)Ordered By: Ramone Smiley on 02-07-2025 Albumin [Mass/Vol] 3.3 g/dL Low 3.4-4.8 [facility] Serum or plasma albumin/glob ulin mass ratioOrdered By: Ramone Smiley on 02-07-2025 Albumin/Globulin [Mass ratio] 1.0 {ratio} 0.9-2.4 [facility] Serum or plasma alkaline lissa sphatase measurementOrdered By: Ramone Smiley on 02-07-2025 ALP [Catalytic activity/Vol] 86 U/L 35-104 [facility] Serum or plasma calcium melanie urement (mass/volume)Ordered By: Ramone Smiley on 02-07-2025 Calcium [Mass/Vol] 10.2 mg/dL 7.6-11.0 [facility] Serum or plasma urea nitroge n measurement (mass/volume)Ordered By: Ramone Smiley on 02-07-2025 Urea nitrogen [Mass/Vol] 24 mg/dL High 4-19 [facility] Sodium levelOrdered By: Ramone Smiley on 02-07-2025 Sodium [Moles/Vol] 136 mmol/L 133-145 [facility] Total proteinOrdered By: Lilliam Smiley on 02-07-2025 Protein [Mass/Vol] 6.5 g/dL 5.9-8.4 [facility] White blood cell (WBC) count Ordered By: Ramone Smiley on 02-07-2025 WBC (Bld) [#/Vol] 11.5 10*3/uL High 4.4-11.0 [facility] Bedside Glucoseon 02-06-2025 FINGERSTICK GLU 190 mg/dL High 74-106 [facility] Comment on above: Result Comment: KATARINA GEMENT OF PATIENT CARE PER NURSING PROTOCOL Performed By: #### L 501.080 ####[facility] [address] [place], [address] FINGERSTICK GLU 237 mg/dL High 74-106 [facility] Comment on above: Result Comment: KATARINA GEMENT OF PATIENT CARE PER NURSING PROTOCOL Performed By: #### L 501.080 ####[facility] [address] [place], [place], [address] Discharge Instructionon Discharge Instruction Normal [facility] Electrocardiogram reportOrde red By: Marcelina Stoo on 02-06-2025 EKG study [facility] Work Phone[facility] deOrdered By: Lucio Borden on 02-06-2025 Glucose [Mass/Vol] 190 mg/dL High 74-106 [facility] Anion gap in Serum or Plasma Ordered By: Lucio Borden on 02-05-2025 Anion gap [Moles/Vol] 15 mmol/L 5-15 [facility] BUN/creatinine ratioOrdered By: Lucio Borden on 02-05-2025 Urea nitrogen/Creatinine [Mass ratio] 16.1 mg/mg 10-20 [facility] Basic Metabolic Profile (BMP )on 02-05-2025 BUN/CRE 16.1 RATIO Normal -20 [facility] Comment on above: Performed By: #### L 500.2500 ####[facility] [address] [place], [address] Calcium [Mass/Vol] 9.1 mg/dL Normal 7.6-11.0 [facility] Comment on above: Performed By: #### L 500.2500 ####[facility] [address] [place], [address] Chloride [Moles/Vol] 94 mmol/L Low 98-108 [facility] Comment on above: Performed By: #### L 500.2500 ####[facility] [address] [place], [address] CO2 [Moles/Vol] 26.4 mmol/L Normal 21.0-32.0 [facility] Comment on above: Performed By: #### L 500.2500 ####[facility] [address] [place], [address] Creatinine [Mass/Vol] 1.06 mg/dL Normal 0.70-1.20 [facility] Comment on above: Performed By: #### L 500.2500 ####[facility] [address] [place], [address] ECRCL 39.38 ml/min Low 50-250 [facility] Comment on above: Performed By: #### L 500.2500 ####[facility] [address] [place], [address] GAP 15 Normal 5-15 [facility] Comment on above: Performed By: #### L 500.2500 ####[facility] [address] [place], [address] GFR/1.73 sq M.predicted among non-blacks MDRD (S/P/Bld) [Vol rate/Area] 53 mL/min/{1.73_m2} Low >60 [facility] Comment on above: Result Comment: mL/m in/1.73m2 CKD-EPI Creatinine Equation (2020) Performed By: #### L 500.2500 ####[facility] [address] [place], [address] Glucose [Mass/Vol] 272 mg/dL High 70-99 [facility] Comment on above: Performed By: #### L 500.2500 ####[facility] [address] [place], [address] Potassium [Moles/Vol] 4.2 mmol/L Normal 3.3-5.1 [facility] Comment on above: Performed By: #### L 500.2500 ####[facility] [address] [place], [address] Sodium [Moles/Vol] 135 mmol/L Normal 133-145 [facility] Comment on above: Performed By: #### L 500.2500 ####[facility] [address] [place], [address] Urea nitrogen [Mass/Vol] 17 mg/dL Normal 4-19 [facility] Comment on above: Performed By: #### L 500.2500 ####[facility] [address] [place], [address] Bedside Glucoseon 02-05-2025 FINGERSTICK GLU 156 mg/dL High 74-106 [facility] Comment on above: Result Comment: KATARINA GEMENT OF PATIENT CARE PER NURSING PROTOCOL Performed By: #### L 501.080 ####[facility] [address] [place], [address] FINGERSTICK GLU 128 mg/dL High 74-106 [facility] Comment on above: Result Comment: KATARINA GEMENT OF PATIENT CARE PER NURSING PROTOCOL Performed By: #### L 501.080 ####[facility] [address] [place], [address] FINGERSTICK GLU 296 mg/dL High 74-106 [facility] Comment on above: Result Comment: KATARINA GEMENT OF PATIENT CARE PER NURSING PROTOCOL Performed By: #### L 501.080 ####[facility] [address] [place], [address] FINGERSTICK GLU 238 mg/dL High 74-106 [facility] Comment on above: Result Comment: KATARINA GEMENT OF PATIENT CARE PER NURSING PROTOCOL Performed By: #### L 501.080 ####[facility] [address] [place], [address] Carbon dioxide, total [Moles /volume] in Central venous bloodOrdered By: Lucio Borden on 02-05-2025 CO2 [Moles/Vol] 26.4 mmol/L 21.0-32.0 [facility] Chloride assayOrdered By: Chen Borden on 02-05-2025 Chloride [Moles/Vol] 94 mmol/L Low 98-108 [facility] Glomerular filtration rate ( GFR) estimation/1.73 sq m using serum, plasma, or whole bOrdered By: Lucio Borden on 02-05-2025 GFR/1.73 sq M.predicted among non-blacks MDRD (S/P/Bld) [Vol rate/Area] 53 mL/min/{1.73_m2} Low >60 [facility] Potassium measurement (mass/ volume)Ordered By: Lucio Borden on 02-05-2025 Potassium (Unsp spec) [Mass/Vol] 4.2 mmol/L 3.3-5.1 [facility] Serum creatinine measurement (mass/volume)Ordered By: Lucio Borden on 02-05-2025 Creatinine [Mass/Vol] 1.06 mg/dL 0.70-1.20 [facility] Serum glucose measurement (m ass/volume)Ordered By: Lucio Borden on 02-05-2025 Glucose [Mass/Vol] 272 mg/dL High 70-99 [facility] Serum or plasma calcium melanie urement (mass/volume)Ordered By: Lucio Borden on 02-05-2025 Calcium [Mass/Vol] 9.1 mg/dL 7.6-11.0 [facility] Serum or plasma urea nitroge n measurement (mass/volume)Ordered By: Lucio Borden on 02-05-2025 Urea nitrogen [Mass/Vol] 17 mg/dL 4-19 [facility] Sodium levelOrdered By: Lucio Borden on 02-05-2025 Sodium [Moles/Vol] 135 mmol/L 133-145 [facility] 12 Lead EKGon 02-04-2025 12 Lead EKG Normal [facility] Absolute lymphocyte countOrd ered By: Aj Holley on 02-04-2025 Lymphocytes Auto (Unsp spec) [#/Vol] 1.75 10*3/uL 0.83-4.51 [facility] Anion gap in Serum or Plasma Ordered By: Aj Holley on 02-04-2025 Anion gap [Moles/Vol] 16 mmol/L High 5-15 [facility] Automated lymphocyte count a s percentage of total leukocytesOrdered By: Aj Holley on 02-04-2025 Lymphocytes/100 WBC Auto (Unsp spec) 15.7 % Low 19-41 [facility] BUN/creatinine ratioOrdered By: Aj Holley on 02-04-2025 Urea nitrogen/Creatinine [Mass ratio] 13.2 mg/mg 10- [facility] Basic Metabolic Profile (BMP )on 02-04-2025 BUN/CRE 13.2 RATIO Normal -20 [facility] Comment on above: Performed By: #### L 500.2500, L100.0100 ####[facility] [address] [place], [address] Calcium [Mass/Vol] 8.9 mg/dL Normal 7.6-11.0 [facility] Comment on above: Performed By: #### L 500.2500, L100.0100 ####[facility] [address] [place], [address] Chloride [Moles/Vol] 95 mmol/L Low 98-108 [facility] Comment on above: Performed By: #### L 500.2500, L100.0100 ####[facility] [address] [place], [address] CO2 [Moles/Vol] 25.9 mmol/L Normal 21.0-32.0 [facility] Comment on above: Performed By: #### L 500.2500, L100.0100 ####[facility] [address] [place], [address] Creatinine [Mass/Vol] 1.14 mg/dL Normal 0.70-1.20 [facility] Comment on above: Performed By: #### L 500.2500, L100.0100 ####[facility] [address] [place], [address] ECRCL 37.95 ml/min Low 50-250 [facility] Comment on above: Performed By: #### L 500.2500, L100.0100 ####[facility] [address] [place], [address] GAP 16 High 5-15 [facility] Comment on above: Performed By: #### L 500.2500, L100.0100 ####[facility] [address] [place], [address] GFR/1.73 sq M.predicted among non-blacks MDRD (S/P/Bld) [Vol rate/Area] 48 mL/min/{1.73_m2} Low >60 [facility] Comment on above: Result Comment: mL/m in/1.73m2 CKD-EPI Creatinine Equation (2020) Performed By: #### L 500.2500, L100.0100 ####[facility] [address] [place], [address] Glucose [Mass/Vol] 132 mg/dL High 70-99 [facility] Comment on above: Performed By: #### L 500.2500, L100.0100 ####[facility] [address] [place], [address] Potassium [Moles/Vol] 3.9 mmol/L Normal 3.3-5.1 [facility] Comment on above: Result Comment: Hemo lysis present, Results??could be affected.?? Performed By: #### L 500.2500, L100.0100 ####[facility] [address] [place], [address] Sodium [Moles/Vol] 137 mmol/L Normal 133-145 [facility] Comment on above: Performed By: #### L 500.2500, L100.0100 ####[facility] [address] [place], [address] Urea nitrogen [Mass/Vol] 15 mg/dL Normal 4-19 [facility] Comment on above: Performed By: #### L 500.2500, L100.0100 ####[facility] [address] [place], [address] Basophil percentageOrdered B y: Aj Holley on 02-04-2025 Basophils/100 WBC (Bld) 0.2 % 0-1 [facility] Bedside Glucoseon 02-04-2025 FINGERSTICK GLU 179 mg/dL High 74-106 [facility] Comment on above: Result Comment: KATARINA GEMENT OF PATIENT CARE PER NURSING PROTOCOL Performed By: #### L 501.080 ####[facility] [address] [place], [address] FINGERSTICK GLU 240 mg/dL High 74-106 [facility] Comment on above: Result Comment: KATARINA GEMENT OF PATIENT CARE PER NURSING PROTOCOL Performed By: #### L 501.080 ####[facility] [address] [place], [address] CBC W/Diff, Automatedon 06-0 Absolute Lymph 1.75 X10 3/uL Normal 0.83-4.51 [facility] Comment on above: Performed By: #### L 500.2500, L100.0100 ####[facility] [address] [place], [address] Absolute Neut 8.4 X10 3/uL High 2.0-7.7 [facility] Comment on above: Performed By: #### L 500.2500, L100.0100 ####[facility] [address] [place], [address] Basophils/100 WBC (Bld) 0.2 % Normal 0-1 [facility] Comment on above: Performed By: #### L 500.2500, L100.0100 ####[facility] [address] [place], [address] Eosinophils/100 WBC (Bld) 1.7 % Normal 0-5 [facility] Comment on above: Performed By: #### L 500.2500, L100.0100 ####[facility] [address] [place], [address] Erythrocyte distribution width (RBC) [Ratio] 15.9 % High 11.6-14.6 [facility] Comment on above: Performed By: #### L 500.2500, L100.0100 ####[facility] [address] [place], [address] Hematocrit (Bld) [Volume fraction] 34.1 % Low 37-47 [facility] Comment on above: Performed By: #### L 500.2500, L100.0100 ####[facility] [address] [place], [address] Hemoglobin (Bld) [Mass/Vol] 10.7 g/dL Low 12.0-15.0 [facility] Comment on above: Performed By: #### L 500.2500, L100.0100 ####[facility] [address] [place], [address] IG% 0.400 Normal 0.0-0.9 [facility] Comment on above: Result Comment: IG% - Immature Granulocytes (promyelocytes, myelocytes andmetamyelocytes) > 1% indicates that a LEFT SHIFT is Present. Performed By: #### L 500.2500, L100.0100 ####[facility] [address] [place], [address] Lymphocytes/100 WBC (Bld) 15.7 % Low 19-41 [facility] Comment on above: Performed By: #### L 500.2500, L100.0100 ####[facility] [address] [place], [address] MCH (RBC) [Entitic mass] 27.9 pg Normal 27.0-32.0 [facility] Comment on above: Performed By: #### L 500.2500, L100.0100 ####[facility] [address] [place], [address] MCHC (RBC) [Mass/Vol] 31.4 g/dL Low 32-36 [facility] Comment on above: Performed By: #### L 500.2500, L100.0100 ####[facility] [address] [place], [address] MCV (RBC) [Entitic vol] 88.8 fL Normal 81-99 [facility] Comment on above: Performed By: #### L 500.2500, L100.0100 ####[facility] [address] [place], [address] Monocytes/100 WBC (Bld) 6.6 % Normal 0-10 [facility] Comment on above: Performed By: #### L 500.2500, L100.0100 ####[facility] [address] [place], [address] Neutrophils/100 WBC (Bld) 75.4 % High 47-70 [facility] Comment on above: Performed By: #### L 500.2500, L100.0100 ####[facility] [address] [place], [address] Nucleated RBC (Bld) [#/Vol] 0 10*3/uL Normal 0-5 [facility] Comment on above: Performed By: #### L 500.2500, L100.0100 ####[facility] [address] [place], [address] Platelet mean volume (Bld) [Entitic vol] 11.3 fL Normal 6.2-12.0 [facility] Comment on above: Performed By: #### L 500.2500, L100.0100 ####[facility] [address] [place], [address] Platelets (Bld) [#/Vol] 185 10*3/uL Normal 150-450 [facility] Comment on above: Performed By: #### L 500.2500, L100.0100 ####[facility] [address] [place], [address] RBC (Bld) [#/Vol] 3.84 10*6/uL Low 4.2-5.4 [facility] Comment on above: Performed By: #### L 500.2500, L100.0100 ####[facility] [address] [place], [address] RDW SD 51.4 fl High 35.1-43.9 [facility] Comment on above: Performed By: #### L 500.2500, L100.0100 ####[facility] [address] [place], [address] WBC (Bld) [#/Vol] 11.2 10*3/uL High 4.4-11.0 [facility] Comment on above: Performed By: #### L 500.2500, L100.0100 ####[facility] [address] [place], [address] CTA Chest W/WO Contraston CTA Chest W/WO Contrast Normal [facility] Carbon dioxide, total [Moles /volume] in Central venous bloodOrdered By: Aj Holley on 02-04-2025 CO2 [Moles/Vol] 25.9 mmol/L 21.0-32.0 [facility] Chest PA and Lateralon 02-04 Chest PA and Lateral Normal [facility] Chloride assayOrdered By: Dahlia Holley on 02-04-2025 Chloride [Moles/Vol] 95 mmol/L Low 98-108 [facility] Emergency Department Summary on 02-04-2025 Emergency Department Summary Normal [facility] Eosinophil percentageOrdered By: Aj Holley on 02-04-2025 Eosinophils/100 WBC (Bld) 1.7 % 0-5 [facility] Erythrocyte distribution wid th ratioOrdered By: Aj Holley on 02-04-2025 Erythrocyte distribution width (RBC) [Ratio] 15.9 % High 11.6-14.6 [facility] Erythrocyte distribution wid th standard deviationOrdered By: Aj Holley on 02-04-2025 Erythrocyte distribution width (RBC) [Ratio] 51.4 fl High 35.1-43.9 [facility] Glomerular filtration rate ( GFR) estimation/1.73 sq m using serum, plasma, or whole bOrdered By: Aj Holley on 02-04-2025 GFR/1.73 sq M.predicted among non-blacks MDRD (S/P/Bld) [Vol rate/Area] 48 mL/min/{1.73_m2} Low >60 [facility] H AND P Exam - Hospitaliston 02-04-2025 H&P Exam - Hospitalist Normal [facility] Hematocrit Auto (Bld) [Volum e fraction]Ordered By: Aj Holley on 02-04-2025 Hematocrit (Bld) [Volume fraction] 34.1 % Low 37-47 [facility] Hemoglobin measurementOrdere d By: Aj Holley on 02-04-2025 Hemoglobin (Bld) [Mass/Vol] 10.7 g/dL Low 12.0-15.0 [facility] Immature granulocytes/100 WB C Auto (Bld)Ordered By: Aj Holley on 02-04-2025 Immature granulocytes/100 WBC (Bld) 0.400 % 0.0-0.9 [facility] L499.0042on 02-04-2025 Trop T High Sen 133 ng/L Invalid Interpretation Code <=14 [facility] Comment on above: Result Comment: Crit ical Result(s) Called at 0915: by: SHARONA EASLEY. ??Results read back by same. Performed By: #### L 499.0042 ####[facility] [address] [place], [address] L499.0043on 02-04-2025 Trop T High Sen 139 ng/L Invalid Interpretation Code <=14 [facility] Comment on above: Result Comment: Crit ical Result(s) Called at 1125: by: Michael SEGAL to [facility].??Results read back by same. Performed By: #### L 499.0043 ####[facility] [address] [place], [address] L501.4021on 02-04-2025 Trop T High Sen 139 ng/L Invalid Interpretation Code <=14 [facility] Comment on above: Result Comment: Crit ical Result(s) Called at 0809: by: SHARONA GO.??Results read back by same. Performed By: #### L 501.4021, L503.7505 ####[facility] [address] [place], [address] L503.7505on 02-04-2025 Natriuretic peptide B (Bld) [Mass/Vol] 6247 pg/mL High <=1800 [facility] Comment on above: Result Comment: Hear t Failure Unlikely: < 300 pg/mLHeart Failure Likely< 50 Years: > 450 pg/mL50-75 Years: > 900 pg/mL>75 Years: > 1800 pg/mL Performed By: #### L 501.4021, L503.7505 ####[facility] [address] [place], [address] MCV (mean corpuscular volume ) determinationOrdered By: Aj Holley on 02-04-2025 MCV (RBC) [Entitic vol] 88.8 fL 81-99 [facility] Mean corpuscular hemoglobin (MCH) determinationOrdered By: Aj Holley on 02-04-2025 MCH (RBC) [Entitic mass] 27.9 pg 27.0-32.0 [facility] Monocyte percentageOrdered B y: Aj Holley on 02-04-2025 Monocytes/100 WBC (Bld) 6.6 % 0-10 [facility] Natriuretic peptide.B prohor hayley N-Terminal [Mass/volume] in Serum or PlasmaOrdered By: Aj oHlley on 02-04-2025 Natriuretic peptide.B prohormone N-Terminal [Mass/Vol] 6247 pg/mL High <1800 [facility] Neutrophil percentageOrdered By: Aj Holley on 02-04-2025 Neutrophils/100 WBC (Bld) 75.4 % High 47-70 [facility] Platelet countOrdered By: Dahlia Holley on 02-04-2025 Platelets (Bld) [#/Vol] 185 10*3/uL 150-450 [facility] Potassium measurement (mass/ volume)Ordered By: Aj Holley on 02-04-2025 Potassium (Unsp spec) [Mass/Vol] 3.9 mmol/L 3.3-5.1 [facility] RBC Auto (Bld) [#/Vol]Ordere d By: Aj Holley on 02-04-2025 RBC (Bld) [#/Vol] 3.84 10*6/uL Low 4.2-5.4 [facility] Serum creatinine measurement (mass/volume)Ordered By: Aj Holley on 02-04-2025 Creatinine [Mass/Vol] 1.14 mg/dL 0.70-1.20 [facility] Serum glucose measurement (m ass/volume)Ordered By: Aj Holley on 02-04-2025 Glucose [Mass/Vol] 132 mg/dL High 70-99 [facility] Serum or plasma calcium melanie urement (mass/volume)Ordered By: Aj Holley on 02-04-2025 Calcium [Mass/Vol] 8.9 mg/dL 7.6-11.0 [facility] Serum or plasma urea nitroge n measurement (mass/volume)Ordered By: Aj Holley on 02-04-2025 Urea nitrogen [Mass/Vol] 15 mg/dL 4-19 [facility] Sodium levelOrdered By: Reynaldo Holley on 02-04-2025 Sodium [Moles/Vol] 137 mmol/L 133-145 [facility] Troponin T.cardiac [Mass/vol ume] in Serum or Plasma by High sensitivity methodOrdered By: Aj Holley on 02-04-2025 Troponin T.cardiac High sensitivity method [Mass/Vol] 139 ng/L High <14 [facility] Troponin T.cardiac High sensitivity method [Mass/Vol] 133 ng/L High <14 [facility] Troponin T.cardiac High sensitivity method [Mass/Vol] 139 ng/L High <14 [facility] White blood cell (WBC) count Ordered By: Aj Holley on 02-04-2025 WBC (Bld) [#/Vol] 11.2 10*3/uL High 4.4-11.0 [facility] Cardiology Visit Reporton Cardiology Visit Report Normal [facility] Basic Metabolic Profile (BMP )on 01-30-2025 BUN Normal 4-19 [facility] Comment on above: Result Comment: Canc elled via OM: Order cancelled - Patient discharged Performed By: #### L 500.2500, L100.0100 ####[facility] [address] [place], [address] BUN/CRE Normal 10-20 [facility] Comment on above: Result Comment: Canc elled via OM: Order cancelled - Patient discharged Performed By: #### L 500.2500, L100.0100 ####[facility] [address] [place], [address] Calcium Normal 7.6-11.0 [facility] Comment on above: Result Comment: Canc elled via OM: Order cancelled - Patient discharged Performed By: #### L 500.2500, L100.0100 ####[facility] [address] [place], [address] CL Normal 98-108 [facility] Comment on above: Result Comment: Canc elled via OM: Order cancelled - Patient discharged Performed By: #### L 500.2500, L100.0100 ####[facility] [address] [place], [address] CO2 Normal 21.0-32.0 [facility] Comment on above: Result Comment: Canc elled via OM: Order cancelled - Patient discharged Performed By: #### L 500.2500, L100.0100 ####[facility] [address] [place], [address] CREAT,SERUM Normal 0.70-1.20 [facility] Comment on above: Result Comment: Canc elled via OM: Order cancelled - Patient discharged Performed By: #### L 500.2500, L100.0100 ####[facility] [address] [place], [address] eGFR Normal >60 [facility] Comment on above: Result Comment: Canc elled via OM: Order cancelled - Patient discharged Performed By: #### L 500.2500, L100.0100 ####[facility] [address] [place], [address] GAP Normal 5-15 [facility] Comment on above: Result Comment: Canc elled via OM: Order cancelled - Patient discharged Performed By: #### L 500.2500, L100.0100 ####[facility] [address] [place], [address] GLU Normal 70-99 [facility] Comment on above: Result Comment: Canc elled via OM: Order cancelled - Patient discharged Performed By: #### L 500.2500, L100.0100 ####[facility] [address] [place], [address] Potassium Normal 3.3-5.1 [facility] Comment on above: Result Comment: Canc elled via OM: Order cancelled - Patient discharged Performed By: #### L 500.2500, L100.0100 ####[facility] [address] [place], [address] Basic Metabolic Profile (BMP) Normal 133-145 [facility] Comment on above: Result Comment: Canc elled via OM: Order cancelled - Patient discharged Performed By: #### L 500.2500, L100.0100 ####[facility] [address] [place], [address] CBC W/Diff, Automatedon 06-0 2-2024 Absolute Neut Normal 2.0-7.7 [facility] Comment on above: Result Comment: Canc elled via OM: Order cancelled - Patient discharged Performed By: #### L 500.2500, L100.0100 ####[facility] [address] [place], [address] HCT Normal 37-47 [facility] Comment on above: Result Comment: Canc elled via OM: Order cancelled - Patient discharged Performed By: #### L 500.2500, L100.0100 ####[facility] [address] [place], [address] HGB Normal 12.0-15.0 [facility] Comment on above: Result Comment: Canc elled via OM: Order cancelled - Patient discharged Performed By: #### L 500.2500, L100.0100 ####[facility] [address] [place], [address] MCH Normal 27.0-32.0 [facility] Comment on above: Result Comment: Canc elled via OM: Order cancelled - Patient discharged Performed By: #### L 500.2500, L100.0100 ####[facility] [address] [place], [address] MCHC Normal 32-36 [facility] Comment on above: Result Comment: Canc elled via OM: Order cancelled - Patient discharged Performed By: #### L 500.2500, L100.0100 ####[facility] [address] [place], [address] MCV Normal 81-99 [facility] Comment on above: Result Comment: Canc elled via OM: Order cancelled - Patient discharged Performed By: #### L 500.2500, L100.0100 ####[facility] [address] [place], [address] NEUT% Normal 47-70 [facility] Comment on above: Result Comment: Canc elled via OM: Order cancelled - Patient discharged Performed By: #### L 500.2500, L100.0100 ####[facility] [address] [place], [address] PLT Normal 150-450 [facility] Comment on above: Result Comment: Canc elled via OM: Order cancelled - Patient discharged Performed By: #### L 500.2500, L100.0100 ####[facility] [address] [place], [address] RBC Normal 4.2-5.4 [facility] Comment on above: Result Comment: Canc elled via OM: Order cancelled - Patient discharged Performed By: #### L 500.2500, L100.0100 ####[facility] [address] [place], [address] RDW CV Normal 11.6-14.6 [facility] Comment on above: Result Comment: Canc elled via OM: Order cancelled - Patient discharged Performed By: #### L 500.2500, L100.0100 ####[facility] [address] [place], [address] RDW SD Normal 35.1-43.9 [facility] Comment on above: Result Comment: Canc elled via OM: Order cancelled - Patient discharged Performed By: #### L 500.2500, L100.0100 ####[facility] [address] [place], [address] WBC Normal 4.4-11.0 [facility] Comment on above: Result Comment: Canc elled via OM: Order cancelled - Patient discharged Performed By: #### L 500.2500, L100.0100 ####[facility] [address] [place], [address] Basic Metabolic Profile (BMP )on 01-29-2025 BUN Normal 4-19 [facility] Comment on above: Result Comment: Canc elled via OM: Order cancelled - Patient discharged Performed By: #### L 100.0100, L500.2500 ####[facility] [address] [place], [address] BUN/CRE Normal 10-20 [facility] Comment on above: Result Comment: Canc elled via OM: Order cancelled - Patient discharged Performed By: #### L 100.0100, L500.2500 ####[facility] [address] [place], [address] Calcium Normal 7.6-11.0 [facility] Comment on above: Result Comment: Canc elled via OM: Order cancelled - Patient discharged Performed By: #### L 100.0100, L500.2500 ####[facility] [address] [place], [address] CL Normal 98-108 [facility] Comment on above: Result Comment: Canc elled via OM: Order cancelled - Patient discharged Performed By: #### L 100.0100, L500.2500 ####[facility] [address] [place], [address] CO2 Normal 21.0-32.0 [facility] Comment on above: Result Comment: Canc elled via OM: Order cancelled - Patient discharged Performed By: #### L 100.0100, L500.2500 ####[facility] [address] [place], [address] CREAT,SERUM Normal 0.70-1.20 [facility] Comment on above: Result Comment: Canc elled via OM: Order cancelled - Patient discharged Performed By: #### L 100.0100, L500.2500 ####[facility] [address] [place], [address] eGFR Normal >60 [facility] Comment on above: Result Comment: Canc elled via OM: Order cancelled - Patient discharged Performed By: #### L 100.0100, L500.2500 ####[facility] [address] [place], [address] GAP Normal 5-15 [facility] Comment on above: Result Comment: Canc elled via OM: Order cancelled - Patient discharged Performed By: #### L 100.0100, L500.2500 ####[facility] [address] [place], [address] GLU Normal 70-99 [facility] Comment on above: Result Comment: Canc elled via OM: Order cancelled - Patient discharged Performed By: #### L 100.0100, L500.2500 ####[facility] [address] [place], [address] Potassium Normal 3.3-5.1 [facility] Comment on above: Result Comment: Canc elled via OM: Order cancelled - Patient discharged Performed By: #### L 100.0100, L500.2500 ####[facility] [address] [place], [address] Basic Metabolic Profile (BMP) Normal 133-145 [facility] Comment on above: Result Comment: Canc elled via OM: Order cancelled - Patient discharged Performed By: #### L 100.0100, L500.2500 ####[facility] [address] [place], [address] CBC W/Diff, Automatedon 06-0 -2024 Absolute Neut Normal 2.0-7.7 [facility] Comment on above: Result Comment: Canc elled via OM: Order cancelled - Patient discharged Performed By: #### L 100.0100, L500.2500 ####[facility] [address] [place], [address] HCT Normal 37-47 [facility] Comment on above: Result Comment: Canc elled via OM: Order cancelled - Patient discharged Performed By: #### L 100.0100, L500.2500 ####[facility] [address] [place], [address] HGB Normal 12.0-15.0 [facility] Comment on above: Result Comment: Canc elled via OM: Order cancelled - Patient discharged Performed By: #### L 100.0100, L500.2500 ####[facility] [address] [place], [address] MCH Normal 27.0-32.0 [facility] Comment on above: Result Comment: Canc elled via OM: Order cancelled - Patient discharged Performed By: #### L 100.0100, L500.2500 ####[facility] [address] [place], [address] MCHC Normal 32-36 [facility] Comment on above: Result Comment: Canc elled via OM: Order cancelled - Patient discharged Performed By: #### L 100.0100, L500.2500 ####[facility] [address] [place], [address] MCV Normal 81-99 [facility] Comment on above: Result Comment: Canc elled via OM: Order cancelled - Patient discharged Performed By: #### L 100.0100, L500.2500 ####[facility] [address] [place], [address] NEUT% Normal 47-70 [facility] Comment on above: Result Comment: Canc elled via OM: Order cancelled - Patient discharged Performed By: #### L 100.0100, L500.2500 ####[facility] [address] [place], [address] PLT Normal 150-450 [facility] Comment on above: Result Comment: Canc elled via OM: Order cancelled - Patient discharged Performed By: #### L 100.0100, L500.2500 ####[facility] [address] [place], [address] RBC Normal 4.2-5.4 [facility] Comment on above: Result Comment: Canc elled via OM: Order cancelled - Patient discharged Performed By: #### L 100.0100, L500.2500 ####[facility] [address] [place], [address] RDW CV Normal 11.6-14.6 [facility] Comment on above: Result Comment: Canc elled via OM: Order cancelled - Patient discharged Performed By: #### L 100.0100, L500.2500 ####[facility] [address] [place], [address] RDW SD Normal 35.1-43.9 [facility] Comment on above: Result Comment: Canc elled via OM: Order cancelled - Patient discharged Performed By: #### L 100.0100, L500.2500 ####[facility] [address] [place], [address] WBC Normal 4.4-11.0 [facility] Comment on above: Result Comment: Canc elled via OM: Order cancelled - Patient discharged Performed By: #### L 100.0100, L500.2500 ####[facility] [address] [place], [address] Basic Metabolic Profile (BMP )on 01-28-2025 BUN Normal 4-19 [facility] Comment on above: Result Comment: Canc elled via OM: Order cancelled - Patient discharged Performed By: #### L 500.2500, L100.0100 ####[facility] [address] [place], [address] BUN/CRE Normal 10-20 [facility] Comment on above: Result Comment: Canc elled via OM: Order cancelled - Patient discharged Performed By: #### L 500.2500, L100.0100 ####[facility] [address] [place], [address] Calcium Normal 7.6-11.0 [facility] Comment on above: Result Comment: Canc elled via OM: Order cancelled - Patient discharged Performed By: #### L 500.2500, L100.0100 ####[facility] [address] [place], [address] CL Normal 98-108 [facility] Comment on above: Result Comment: Canc elled via OM: Order cancelled - Patient discharged Performed By: #### L 500.2500, L100.0100 ####[facility] [address] [place], [address] CO2 Normal 21.0-32.0 [facility] Comment on above: Result Comment: Canc elled via OM: Order cancelled - Patient discharged Performed By: #### L 500.2500, L100.0100 ####[facility] [address] [place], [address] CREAT,SERUM Normal 0.70-1.20 [facility] Comment on above: Result Comment: Canc elled via OM: Order cancelled - Patient discharged Performed By: #### L 500.2500, L100.0100 ####[facility] [address] [place], [address] eGFR Normal >60 [facility] Comment on above: Result Comment: Canc elled via OM: Order cancelled - Patient discharged Performed By: #### L 500.2500, L100.0100 ####[facility] [address] [place], [address] GAP Normal 5-15 [facility] Comment on above: Result Comment: Canc elled via OM: Order cancelled - Patient discharged Performed By: #### L 500.2500, L100.0100 ####[facility] [address] [place], [address] GLU Normal 70-99 [facility] Comment on above: Result Comment: Canc elled via OM: Order cancelled - Patient discharged Performed By: #### L 500.2500, L100.0100 ####[facility] [address] [place], [address] Potassium Normal 3.3-5.1 [facility] Comment on above: Result Comment: Canc elled via OM: Order cancelled - Patient discharged Performed By: #### L 500.2500, L100.0100 ####[facility] [address] [place], [address] Basic Metabolic Profile (BMP) Normal 133-145 [facility] Comment on above: Result Comment: Canc elled via OM: Order cancelled - Patient discharged Performed By: #### L 500.2500, L100.0100 ####[facility] [address] [place], [address] CBC W/Diff, Automatedon 05-3 Absolute Neut Normal 2.0-7.7 [facility] Comment on above: Result Comment: Canc elled via OM: Order cancelled - Patient discharged Performed By: #### L 500.2500, L100.0100 ####[facility] [address] [place], [address] HCT Normal 37-47 [facility] Comment on above: Result Comment: Canc elled via OM: Order cancelled - Patient discharged Performed By: #### L 500.2500, L100.0100 ####[facility] [address] [place], [address] HGB Normal 12.0-15.0 [facility] Comment on above: Result Comment: Canc elled via OM: Order cancelled - Patient discharged Performed By: #### L 500.2500, L100.0100 ####[facility] [address] [place], [address] MCH Normal 27.0-32.0 [facility] Comment on above: Result Comment: Canc elled via OM: Order cancelled - Patient discharged Performed By: #### L 500.2500, L100.0100 ####[facility] [address] [place], [address] MCHC Normal 32-36 [facility] Comment on above: Result Comment: Canc elled via OM: Order cancelled - Patient discharged Performed By: #### L 500.2500, L100.0100 ####[facility] [address] [place], [address] MCV Normal 81-99 [facility] Comment on above: Result Comment: Canc elled via OM: Order cancelled - Patient discharged Performed By: #### L 500.2500, L100.0100 ####[facility] [address] [place], [address] NEUT% Normal 47-70 [facility] Comment on above: Result Comment: Canc elled via OM: Order cancelled - Patient discharged Performed By: #### L 500.2500, L100.0100 ####[facility] [address] [place], [address] PLT Normal 150-450 [facility] Comment on above: Result Comment: Canc elled via OM: Order cancelled - Patient discharged Performed By: #### L 500.2500, L100.0100 ####[facility] [address] [place], [address] RBC Normal 4.2-5.4 [facility] Comment on above: Result Comment: Canc elled via OM: Order cancelled - Patient discharged Performed By: #### L 500.2500, L100.0100 ####[facility] [address] [place], [address] RDW CV Normal 11.6-14.6 [facility] Comment on above: Result Comment: Canc elled via OM: Order cancelled - Patient discharged Performed By: #### L 500.2500, L100.0100 ####[facility] [address] [place], [address] RDW SD Normal 35.1-43.9 [facility] Comment on above: Result Comment: Canc elled via OM: Order cancelled - Patient discharged Performed By: #### L 500.2500, L100.0100 ####[facility] [address] [place], [address] WBC Normal 4.4-11.0 [facility] Comment on above: Result Comment: Canc elled via OM: Order cancelled - Patient discharged Performed By: #### L 500.2500, L100.0100 ####[facility] [address] [place], [address] Basic Metabolic Profile (BMP )on 01-27-2025 BUN Normal 4-19 [facility] Comment on above: Result Comment: Canc elled via OM: Order cancelled - Patient discharged Performed By: #### L 500.2500, L100.0100 ####[facility] [address] [place], [address] BUN/CRE Normal 10-20 [facility] Comment on above: Result Comment: Canc elled via OM: Order cancelled - Patient discharged Performed By: #### L 500.2500, L100.0100 ####[facility] [address] [place], [address] Calcium Normal 7.6-11.0 [facility] Comment on above: Result Comment: Canc elled via OM: Order cancelled - Patient discharged Performed By: #### L 500.2500, L100.0100 ####[facility] [address] [place], [address] CL Normal 98-108 [facility] Comment on above: Result Comment: Canc elled via OM: Order cancelled - Patient discharged Performed By: #### L 500.2500, L100.0100 ####[facility] [address] [place], [address] CO2 Normal 21.0-32.0 [facility] Comment on above: Result Comment: Canc elled via OM: Order cancelled - Patient discharged Performed By: #### L 500.2500, L100.0100 ####[facility] [address] [place], [address] CREAT,SERUM Normal 0.70-1.20 [facility] Comment on above: Result Comment: Canc elled via OM: Order cancelled - Patient discharged Performed By: #### L 500.2500, L100.0100 ####[facility] [address] [place], [address] eGFR Normal >60 [facility] Comment on above: Result Comment: Canc elled via OM: Order cancelled - Patient discharged Performed By: #### L 500.2500, L100.0100 ####[facility] [address] [place], [address] GAP Normal 5-15 [facility] Comment on above: Result Comment: Canc elled via OM: Order cancelled - Patient discharged Performed By: #### L 500.2500, L100.0100 ####[facility] [address] [place], [address] GLU Normal 70-99 [facility] Comment on above: Result Comment: Canc elled via OM: Order cancelled - Patient discharged Performed By: #### L 500.2500, L100.0100 ####[facility] [address] [place], [address] Potassium Normal 3.3-5.1 [facility] Comment on above: Result Comment: Canc elled via OM: Order cancelled - Patient discharged Performed By: #### L 500.2500, L100.0100 ####[facility] [address] [place], [address] Basic Metabolic Profile (BMP) Normal 133-145 [facility] Comment on above: Result Comment: Canc elled via OM: Order cancelled - Patient discharged Performed By: #### L 500.2500, L100.0100 ####[facility] [address] [place], [address] CBC W/Diff, Automatedon 05-3 0-2024 Absolute Neut Normal 2.0-7.7 [facility] Comment on above: Result Comment: Canc elled via OM: Order cancelled - Patient discharged Performed By: #### L 500.2500, L100.0100 ####[facility] [address] [place], [address] HCT Normal 37-47 [facility] Comment on above: Result Comment: Canc elled via OM: Order cancelled - Patient discharged Performed By: #### L 500.2500, L100.0100 ####[facility] [address] [place], [address] HGB Normal 12.0-15.0 [facility] Comment on above: Result Comment: Canc elled via OM: Order cancelled - Patient discharged Performed By: #### L 500.2500, L100.0100 ####[facility] [address] [place], [address] MCH Normal 27.0-32.0 [facility] Comment on above: Result Comment: Canc elled via OM: Order cancelled - Patient discharged Performed By: #### L 500.2500, L100.0100 ####[facility] [address] [place], [address] MCHC Normal 32-36 [facility] Comment on above: Result Comment: Canc elled via OM: Order cancelled - Patient discharged Performed By: #### L 500.2500, L100.0100 ####[facility] [address] [place], [address] MCV Normal 81-99 [facility] Comment on above: Result Comment: Canc elled via OM: Order cancelled - Patient discharged Performed By: #### L 500.2500, L100.0100 ####[facility] [address] [place], [address] NEUT% Normal 47-70 [facility] Comment on above: Result Comment: Canc elled via OM: Order cancelled - Patient discharged Performed By: #### L 500.2500, L100.0100 ####[facility] [address] [place], [address] PLT Normal 150-450 [facility] Comment on above: Result Comment: Canc elled via OM: Order cancelled - Patient discharged Performed By: #### L 500.2500, L100.0100 ####[facility] [address] [place], [address] RBC Normal 4.2-5.4 [facility] Comment on above: Result Comment: Canc elled via OM: Order cancelled - Patient discharged Performed By: #### L 500.2500, L100.0100 ####[facility] [address] [place], [address] RDW CV Normal 11.6-14.6 [facility] Comment on above: Result Comment: Canc elled via OM: Order cancelled - Patient discharged Performed By: #### L 500.2500, L100.0100 ####[facility] [address] [place], [address] RDW SD Normal 35.1-43.9 [facility] Comment on above: Result Comment: Canc elled via OM: Order cancelled - Patient discharged Performed By: #### L 500.2500, L100.0100 ####[facility] [address] [place], [address] WBC Normal 4.4-11.0 [facility] Comment on above: Result Comment: Canc elled via OM: Order cancelled - Patient discharged Performed By: #### L 500.2500, L100.0100 ####[facility] [address] [place], [address] Absolute lymphocyte countOrd ered By: Jg Bryan on 01-26-2025 Lymphocytes Auto (Unsp spec) [#/Vol] 2.24 10*3/uL 0.83-4.51 [facility] Anion gap in Serum or Plasma Ordered By: Jg Bryan on 01-26-2025 Anion gap [Moles/Vol] 10 mmol/L 5-15 [facility] Automated lymphocyte count a s percentage of total leukocytesOrdered By: Jg Bryan on 01-26-2025 Lymphocytes/100 WBC Auto (Unsp spec) 25.1 % 19-41 [facility] BUN/creatinine ratioOrdered By: Jg Bryan on 01-26-2025 Urea nitrogen/Creatinine [Mass ratio] 30.2 mg/mg High 10-20 [facility] Basic Metabolic Profile (BMP )on 01-26-2025 BUN Normal 4-19 [facility] Comment on above: Result Comment: Canc elled via OM: Order cancelled - Patient discharged Performed By: #### L 500.2500, L100.0100 ####[facility] [address] [place], [address] BUN/CRE Normal 10-20 [facility] Comment on above: Result Comment: Canc elled via OM: Order cancelled - Patient discharged Performed By: #### L 500.2500, L100.0100 ####[facility] [address] [place], [address] Calcium Normal 7.6-11.0 [facility] Comment on above: Result Comment: Canc elled via OM: Order cancelled - Patient discharged Performed By: #### L 500.2500, L100.0100 ####[facility] [address] [place], [address] CL Normal 98-108 [facility] Comment on above: Result Comment: Canc elled via OM: Order cancelled - Patient discharged Performed By: #### L 500.2500, L100.0100 ####[facility] [address] [place], [address] CO2 Normal 21.0-32.0 [facility] Comment on above: Result Comment: Canc elled via OM: Order cancelled - Patient discharged Performed By: #### L 500.2500, L100.0100 ####[facility] [address] [place], [address] CREAT,SERUM Normal 0.70-1.20 [facility] Comment on above: Result Comment: Canc elled via OM: Order cancelled - Patient discharged Performed By: #### L 500.2500, L100.0100 ####[facility] [address] [place], [address] eGFR Normal >60 [facility] Comment on above: Result Comment: Canc elled via OM: Order cancelled - Patient discharged Performed By: #### L 500.2500, L100.0100 ####[facility] [address] [place], [address] GAP Normal 5-15 [facility] Comment on above: Result Comment: Canc elled via OM: Order cancelled - Patient discharged Performed By: #### L 500.2500, L100.0100 ####[facility] [address] [place], [address] GLU Normal 70-99 [facility] Comment on above: Result Comment: Canc elled via OM: Order cancelled - Patient discharged Performed By: #### L 500.2500, L100.0100 ####[facility] [address] [place], [address] Potassium Normal 3.3-5.1 [facility] Comment on above: Result Comment: Canc elled via OM: Order cancelled - Patient discharged Performed By: #### L 500.2500, L100.0100 ####[facility] [address] [place], [address] Basic Metabolic Profile (BMP) Normal 133-145 [facility] Comment on above: Result Comment: Canc elled via OM: Order cancelled - Patient discharged Performed By: #### L 500.2500, L100.0100 ####[facility] [address] [place], [address] BUN/CRE 30.2 RATIO High 10-20 [facility] Comment on above: Performed By: #### L 501.5200, L503.7505, L500.2500, L100.0100 ####[facility] [address] [place], [address] Calcium [Mass/Vol] 10.2 mg/dL Normal 7.6-11.0 [facility] Comment on above: Performed By: #### L 501.5200, L503.7505, L500.2500, L100.0100 ####[facility] [address] [place], [address] Chloride [Moles/Vol] 104 mmol/L Normal 98-108 [facility] Comment on above: Performed By: #### L 501.5200, L503.7505, L500.2500, L100.0100 ####[facility] [address] [place], [address] CO2 [Moles/Vol] 27.1 mmol/L Normal 21.0-32.0 [facility] Comment on above: Performed By: #### L 501.5200, L503.7505, L500.2500, L100.0100 ####[facility] [address] [place], [address] Creatinine [Mass/Vol] 1.16 mg/dL Normal 0.70-1.20 [facility] Comment on above: Performed By: #### L 501.5200, L503.7505, L500.2500, L100.0100 ####[facility] [address] [place], [address] ECRCL 38.24 ml/min Low 50-250 [facility] Comment on above: Performed By: #### L 501.5200, L503.7505, L500.2500, L100.0100 ####[facility] [address] [place], [address] GAP 10 Normal 5-15 [facility] Comment on above: Performed By: #### L 501.5200, L503.7505, L500.2500, L100.0100 ####[facility] [address] [place], [address] GFR/1.73 sq M.predicted among non-blacks MDRD (S/P/Bld) [Vol rate/Area] 47 mL/min/{1.73_m2} Low >60 [facility] Comment on above: Result Comment: mL/m in/1.73m2 CKD-EPI Creatinine Equation (2020) Performed By: #### L 501.5200, L503.7505, L500.2500, L100.0100 ####[facility] [address] [place], [address] Glucose [Mass/Vol] 211 mg/dL High 70-99 [facility] Comment on above: Performed By: #### L 501.5200, L503.7505, L500.2500, L100.0100 ####[facility] [address] [place], [address] Potassium [Moles/Vol] 4.1 mmol/L Normal 3.3-5.1 [facility] Comment on above: Performed By: #### L 501.5200, L503.7505, L500.2500, L100.0100 ####[facility] [address] [place], [address] Sodium [Moles/Vol] 141 mmol/L Normal 133-145 [facility] Comment on above: Performed By: #### L 501.5200, L503.7505, L500.2500, L100.0100 ####[facility] [address] [place], [address] Urea nitrogen [Mass/Vol] 35 mg/dL High 4-19 [facility] Comment on above: Performed By: #### L 501.5200, L503.7505, L500.2500, L100.0100 ####[facility] [address] [place], [address] Basophil percentageOrdered B y: Jg Bryan on 01-26-2025 Basophils/100 WBC (Bld) 0.1 % 0-1 [facility] CBC W/Diff, Automatedon 12-30 Absolute Neut Normal 2.0-7.7 [facility] Comment on above: Result Comment: Canc elled via OM: Order cancelled - Patient discharged Performed By: #### L 500.2500, L100.0100 ####[facility] [address] [place], [address] HCT Normal 37-47 [facility] Comment on above: Result Comment: Canc elled via OM: Order cancelled - Patient discharged Performed By: #### L 500.2500, L100.0100 ####[facility] [address] [place], [address] HGB Normal 12.0-15.0 [facility] Comment on above: Result Comment: Canc elled via OM: Order cancelled - Patient discharged Performed By: #### L 500.2500, L100.0100 ####[facility] [address] [place], [address] MCH Normal 27.0-32.0 [facility] Comment on above: Result Comment: Canc elled via OM: Order cancelled - Patient discharged Performed By: #### L 500.2500, L100.0100 ####[facility] [address] [place], [address] MCHC Normal 32-36 [facility] Comment on above: Result Comment: Canc elled via OM: Order cancelled - Patient discharged Performed By: #### L 500.2500, L100.0100 ####[facility] [address] [place], [address] MCV Normal 81-99 [facility] Comment on above: Result Comment: Canc elled via OM: Order cancelled - Patient discharged Performed By: #### L 500.2500, L100.0100 ####[facility] [address] [place], [address] NEUT% Normal 47-70 [facility] Comment on above: Result Comment: Canc elled via OM: Order cancelled - Patient discharged Performed By: #### L 500.2500, L100.0100 ####[facility] [address] [place], [address] PLT Normal 150-450 [facility] Comment on above: Result Comment: Canc elled via OM: Order cancelled - Patient discharged Performed By: #### L 500.2500, L100.0100 ####[facility] [address] [place], [address] RBC Normal 4.2-5.4 [facility] Comment on above: Result Comment: Canc elled via OM: Order cancelled - Patient discharged Performed By: #### L 500.2500, L100.0100 ####[facility] [address] [place], [address] RDW CV Normal 11.6-14.6 [facility] Comment on above: Result Comment: Canc elled via OM: Order cancelled - Patient discharged Performed By: #### L 500.2500, L100.0100 ####[facility] [address] [place], [address] RDW SD Normal 35.1-43.9 [facility] Comment on above: Result Comment: Canc elled via OM: Order cancelled - Patient discharged Performed By: #### L 500.2500, L100.0100 ####[facility] [address] [place], [address] WBC Normal 4.4-11.0 [facility] Comment on above: Result Comment: Canc elled via OM: Order cancelled - Patient discharged Performed By: #### L 500.2500, L100.0100 ####[facility] [address] [place], [address] Absolute Lymph 2.24 X10 3/uL Normal 0.83-4.51 [facility] Comment on above: Performed By: #### L 501.5200, L503.7505, L500.2500, L100.0100 ####[facility] [address] [place], [address] Absolute Neut 5.8 X10 3/uL Normal 2.0-7.7 [facility] Comment on above: Performed By: #### L 501.5200, L503.7505, L500.2500, L100.0100 ####[facility] [address] [place], [address] Basophils/100 WBC (Bld) 0.1 % Normal 0-1 [facility] Comment on above: Performed By: #### L 501.5200, L503.7505, L500.2500, L100.0100 ####[facility] [address] [place], [address] Eosinophils/100 WBC (Bld) 2.8 % Normal 0-5 [facility] Comment on above: Performed By: #### L 501.5200, L503.7505, L500.2500, L100.0100 ####[facility] [address] [place], [address] Erythrocyte distribution width (RBC) [Ratio] 15.9 % High 11.6-14.6 [facility] Comment on above: Performed By: #### L 501.5200, L503.7505, L500.2500, L100.0100 ####[facility] [address] [place], [address] Hematocrit (Bld) [Volume fraction] 37.9 % Normal 37-47 [facility] Comment on above: Performed By: #### L 501.5200, L503.7505, L500.2500, L100.0100 ####[facility] [address] [place], [address] Hemoglobin (Bld) [Mass/Vol] 11.8 g/dL Low 12.0-15.0 [facility] Comment on above: Performed By: #### L 501.5200, L503.7505, L500.2500, L100.0100 ####[facility] [address] [place], [address] IG% 0.300 Normal 0.0-0.9 [facility] Comment on above: Result Comment: IG% - Immature Granulocytes (promyelocytes, myelocytes andmetamyelocytes) > 1% indicates that a LEFT SHIFT is Present. Performed By: #### L 501.5200, L503.7505, L500.2500, L100.0100 ####[facility] [address] [place], [address] Lymphocytes/100 WBC (Bld) 25.1 % Normal 19-41 [facility] Comment on above: Performed By: #### L 501.5200, L503.7505, L500.2500, L100.0100 ####[facility] [address] [place], [address] MCH (RBC) [Entitic mass] 27.3 pg Normal 27.0-32.0 [facility] Comment on above: Performed By: #### L 501.5200, L503.7505, L500.2500, L100.0100 ####[facility] [address] [place], [address] MCHC (RBC) [Mass/Vol] 31.1 g/dL Low 32-36 [facility] Comment on above: Performed By: #### L 501.5200, L503.7505, L500.2500, L100.0100 ####[facility] [address] [place], [address] MCV (RBC) [Entitic vol] 87.5 fL Normal 81-99 [facility] Comment on above: Performed By: #### L 501.5200, L503.7505, L500.2500, L100.0100 ####[facility] [address] [place], [address] Monocytes/100 WBC (Bld) 6.7 % Normal 0-10 [facility] Comment on above: Performed By: #### L 501.5200, L503.7505, L500.2500, L100.0100 ####[facility] [address] [place], [address] Neutrophils/100 WBC (Bld) 65.0 % Normal 47-70 [facility] Comment on above: Performed By: #### L 501.5200, L503.7505, L500.2500, L100.0100 ####[facility] [address] [place], [address] Nucleated RBC (Bld) [#/Vol] 0 10*3/uL Normal 0-5 [facility] Comment on above: Performed By: #### L 501.5200, L503.7505, L500.2500, L100.0100 ####[facility] [address] [place], [address] Platelet mean volume (Bld) [Entitic vol] 10.8 fL Normal 6.2-12.0 [facility] Comment on above: Performed By: #### L 501.5200, L503.7505, L500.2500, L100.0100 ####[facility] [address] [place], [address] Platelets (Bld) [#/Vol] 247 10*3/uL Normal 150-450 [facility] Comment on above: Performed By: #### L 501.5200, L503.7505, L500.2500, L100.0100 ####[facility] [address] [place], [address] RBC (Bld) [#/Vol] 4.33 10*6/uL Normal 4.2-5.4 [facility] Comment on above: Performed By: #### L 501.5200, L503.7505, L500.2500, L100.0100 ####[facility] [address] [place], [address] RDW SD 51.0 fl High 35.1-43.9 [facility] Comment on above: Performed By: #### L 501.5200, L503.7505, L500.2500, L100.0100 ####[facility] [address] [place], [address] WBC (Bld) [#/Vol] 8.9 10*3/uL Normal 4.4-11.0 [facility] Comment on above: Performed By: #### L 501.5200, L503.7505, L500.2500, L100.0100 ####[facility] [address] [place], [address] Carbon dioxide, total [Moles /volume] in Central venous bloodOrdered By: Jg Bryan on 01-26-2025 CO2 [Moles/Vol] 27.1 mmol/L 21.0-32.0 [facility] Chest PA and Lateralon 01-26 Chest PA and Lateral Normal [facility] Chloride assayOrdered By: Matilde Bryan on 01-26-2025 Chloride [Moles/Vol] 104 mmol/L 98-108 [facility] Emergency Department Summary on 01-26-2025 Emergency Department Summary Normal [facility] Eosinophil percentageOrdered By: Jg Bryan on 01-26-2025 Eosinophils/100 WBC (Bld) 2.8 % 0-5 [facility] Erythrocyte distribution wid th ratioOrdered By: Jg Bryan on 01-26-2025 Erythrocyte distribution width (RBC) [Ratio] 15.9 % High 11.6-14.6 [facility] Erythrocyte distribution wid th standard deviationOrdered By: Jg Bryan on 01-26-2025 Erythrocyte distribution width (RBC) [Ratio] 51.0 fl High 35.1-43.9 [facility] Glomerular filtration rate ( GFR) estimation/1.73 sq m using serum, plasma, or whole bOrdered By: Jg Bryan on 01-26-2025 GFR/1.73 sq M.predicted among non-blacks MDRD (S/P/Bld) [Vol rate/Area] 47 mL/min/{1.73_m2} Low >60 [facility] Hematocrit Auto (Bld) [Volum e fraction]Ordered By: Jg Bryan on 01-26-2025 Hematocrit (Bld) [Volume fraction] 37.9 % 37-47 [facility] Hemoglobin measurementOrdere d By: Jg Bryan on 01-26-2025 Hemoglobin (Bld) [Mass/Vol] 11.8 g/dL Low 12.0-15.0 [facility] Immature granulocytes/100 WB C Auto (Bld)Ordered By: Jg Bryan on 01-26-2025 Immature granulocytes/100 WBC (Bld) 0.300 % 0.0-0.9 [facility] L503.7505on 01-26-2025 Natriuretic peptide B (Bld) [Mass/Vol] 3334 pg/mL High <=1800 [facility] Comment on above: Result Comment: Hear t Failure Unlikely: < 300 pg/mLHeart Failure Likely< 50 Years: > 450 pg/mL50-75 Years: > 900 pg/mL>75 Years: > 1800 pg/mL Performed By: #### L 501.5200, L503.7505, L500.2500, L100.0100 ####[facility] [address] [place], [address] MCV (mean corpuscular volume ) determinationOrdered By: Jg Bryan on 01-26-2025 MCV (RBC) [Entitic vol] 87.5 fL 81-99 [facility] Magnesiumon 01-26-2025 Magnesium [Mass/Vol] 2.7 mg/dL High 1.5-2.2 [facility] Comment on above: Performed By: #### L 501.5200, L503.7505, L500.2500, L100.0100 ####[facility] [address] [place], [place], [address] Magnesium measurement (mass/ volume)Ordered By: Jg Bryan on 01-26-2025 Magnesium (Unsp spec) [Mass/Vol] 2.7 mg/dL High 1.5-2.2 [facility] Mean corpuscular hemoglobin (MCH) determinationOrdered By: Jg Bryan on 01-26-2025 MCH (RBC) [Entitic mass] 27.3 pg 27.0-32.0 [facility] Monocyte percentageOrdered B y: Jg Bryan on 01-26-2025 Monocytes/100 WBC (Bld) 6.7 % 0-10 [facility] Natriuretic peptide.B prohor hayley N-Terminal [Mass/volume] in Serum or PlasmaOrdered By: Jg Bryan on 01-26-2025 Natriuretic peptide.B prohormone N-Terminal [Mass/Vol] 3334 pg/mL High <1800 [facility] Neutrophil percentageOrdered By: Jg Bryan on 01-26-2025 Neutrophils/100 WBC (Bld) 65.0 % 47-70 [facility] Platelet countOrdered By: Matilde Bryan on 01-26-2025 Platelets (Bld) [#/Vol] 247 10*3/uL 150-450 [facility] Potassium measurement (mass/ volume)Ordered By: Jg Bryan on 01-26-2025 Potassium (Unsp spec) [Mass/Vol] 4.1 mmol/L 3.3-5.1 [facility] RBC Auto (Bld) [#/Vol]Ordere d By: Jg Bryan on 01-26-2025 RBC (Bld) [#/Vol] 4.33 10*6/uL 4.2-5.4 [facility] Serum creatinine measurement (mass/volume)Ordered By: Jg Bryan on 01-26-2025 Creatinine [Mass/Vol] 1.16 mg/dL 0.70-1.20 [facility] Serum glucose measurement (m ass/volume)Ordered By: Jg Bryan on 01-26-2025 Glucose [Mass/Vol] 211 mg/dL High 70-99 [facility] Serum or plasma calcium melanie urement (mass/volume)Ordered By: Jg Bryan on 01-26-2025 Calcium [Mass/Vol] 10.2 mg/dL 7.6-11.0 [facility] Serum or plasma urea nitroge n measurement (mass/volume)Ordered By: Jg Bryan on 01-26-2025 Urea nitrogen [Mass/Vol] 35 mg/dL High 4-19 [facility] Sodium levelOrdered By: Cosme Bryan on 01-26-2025 Sodium [Moles/Vol] 141 mmol/L 133-145 [facility] White blood cell (WBC) count Ordered By: Jg Bryan on 01-26-2025 WBC (Bld) [#/Vol] 8.9 10*3/uL 4.4-11.0 [facility] Basic Metabolic Profile (BMP )on 01-25-2025 BUN Normal 4-19 [facility] Comment on above: Result Comment: Canc elled via OM: Order cancelled - Patient discharged Performed By: #### L 100.0100, L500.2500 ####[facility] [address] [place], [address] BUN/CRE Normal 10-20 [facility] Comment on above: Result Comment: Canc elled via OM: Order cancelled - Patient discharged Performed By: #### L 100.0100, L500.2500 ####[facility] [address] [place], [address] Calcium Normal 7.6-11.0 [facility] Comment on above: Result Comment: Canc elled via OM: Order cancelled - Patient discharged Performed By: #### L 100.0100, L500.2500 ####[facility] [address] [place], [address] CL Normal 98-108 [facility] Comment on above: Result Comment: Canc elled via OM: Order cancelled - Patient discharged Performed By: #### L 100.0100, L500.2500 ####[facility] [address] [place], [address] CO2 Normal 21.0-32.0 [facility] Comment on above: Result Comment: Canc elled via OM: Order cancelled - Patient discharged Performed By: #### L 100.0100, L500.2500 ####[facility] [address] [place], [address] CREAT,SERUM Normal 0.70-1.20 [facility] Comment on above: Result Comment: Canc elled via OM: Order cancelled - Patient discharged Performed By: #### L 100.0100, L500.2500 ####[facility] [address] [place], [address] eGFR Normal >60 [facility] Comment on above: Result Comment: Canc elled via OM: Order cancelled - Patient discharged Performed By: #### L 100.0100, L500.2500 ####[facility] [address] [place], [address] GAP Normal 5-15 [facility] Comment on above: Result Comment: Canc elled via OM: Order cancelled - Patient discharged Performed By: #### L 100.0100, L500.2500 ####[facility] [address] [place], [address] GLU Normal 70-99 [facility] Comment on above: Result Comment: Canc elled via OM: Order cancelled - Patient discharged Performed By: #### L 100.0100, L500.2500 ####[facility] [address] [place], [address] Potassium Normal 3.3-5.1 [facility] Comment on above: Result Comment: Canc elled via OM: Order cancelled - Patient discharged Performed By: #### L 100.0100, L500.2500 ####[facility] [address] [place], [address] Basic Metabolic Profile (BMP) Normal 133-145 [facility] Comment on above: Result Comment: Canc elled via OM: Order cancelled - Patient discharged Performed By: #### L 100.0100, L500.2500 ####[facility] [address] [place], [address] CBC W/Diff, Automatedon 05-2 Absolute Neut Normal 2.0-7.7 [facility] Comment on above: Result Comment: Canc elled via OM: Order cancelled - Patient discharged Performed By: #### L 100.0100, L500.2500 ####[facility] [address] [place], [address] HCT Normal 37-47 [facility] Comment on above: Result Comment: Canc elled via OM: Order cancelled - Patient discharged Performed By: #### L 100.0100, L500.2500 ####[facility] [address] [place], [address] HGB Normal 12.0-15.0 [facility] Comment on above: Result Comment: Canc elled via OM: Order cancelled - Patient discharged Performed By: #### L 100.0100, L500.2500 ####[facility] [address] [place], [address] MCH Normal 27.0-32.0 [facility] Comment on above: Result Comment: Canc elled via OM: Order cancelled - Patient discharged Performed By: #### L 100.0100, L500.2500 ####[facility] [address] [place], [address] MCHC Normal 32-36 [facility] Comment on above: Result Comment: Canc elled via OM: Order cancelled - Patient discharged Performed By: #### L 100.0100, L500.2500 ####[facility] [address] [place], [address] MCV Normal 81-99 [facility] Comment on above: Result Comment: Canc elled via OM: Order cancelled - Patient discharged Performed By: #### L 100.0100, L500.2500 ####[facility] [address] [place], [address] NEUT% Normal 47-70 [facility] Comment on above: Result Comment: Canc elled via OM: Order cancelled - Patient discharged Performed By: #### L 100.0100, L500.2500 ####[facility] [address] [place], [address] PLT Normal 150-450 [facility] Comment on above: Result Comment: Canc elled via OM: Order cancelled - Patient discharged Performed By: #### L 100.0100, L500.2500 ####[facility] [address] [place], [address] RBC Normal 4.2-5.4 [facility] Comment on above: Result Comment: Canc elled via OM: Order cancelled - Patient discharged Performed By: #### L 100.0100, L500.2500 ####[facility] [address] [place], [address] RDW CV Normal 11.6-14.6 [facility] Comment on above: Result Comment: Canc elled via OM: Order cancelled - Patient discharged Performed By: #### L 100.0100, L500.2500 ####[facility] [address] [place], [address] RDW SD Normal 35.1-43.9 [facility] Comment on above: Result Comment: Canc elled via OM: Order cancelled - Patient discharged Performed By: #### L 100.0100, L500.2500 ####[facility] [address] [place], [address] WBC Normal 4.4-11.0 [facility] Comment on above: Result Comment: Canc elled via OM: Order cancelled - Patient discharged Performed By: #### L 100.0100, L500.2500 ####[facility] [address] [place], [address] Culture, Blood (WB)on 2024 CUB Blood cultures x2, from two different sites No growth in 5 days. Normal [facility] Comment on above: Performed By: #### M 200.1000 ####[facility] [address] [place], [address] Performed By: #### M 200.1000, L503.6005 ####[facility] [address] [place], [address] Performed By: #### L 300.4310, L100.0100, L300.3900, L501.4021, L503.6005, L500.4050, M200.1000 ####[facility] [address] [place], [address] Absolute lymphocyte countOrd ered By: Melba Hartmann on 01-24-2025 Lymphocytes Auto (Unsp spec) [#/Vol] 2.19 10*3/uL 0.83-4.51 [facility] Anion gap in Serum or Plasma Ordered By: Melba Hartmann on 01-24-2025 Anion gap [Moles/Vol] 12 mmol/L 5-15 [facility] Automated lymphocyte count a s percentage of total leukocytesOrdered By: Melba Hartmann on 01-24-2025 Lymphocytes/100 WBC Auto (Unsp spec) 19.3 % 19-41 [facility] BUN/creatinine ratioOrdered By: Melba Hartmann on 01-24-2025 Urea nitrogen/Creatinine [Mass ratio] 35.2 mg/mg High 10-20 [facility] Basic Metabolic Profile (BMP )on 01-24-2025 BUN/CRE 35.2 RATIO High [facility]20 [facility] Comment on above: Performed By: #### L 500.2500, L100.0100 ####[facility] [address] [place], [address] Calcium [Mass/Vol] 10.1 mg/dL Normal 7.6-11.0 [facility] Comment on above: Performed By: #### L 500.2500, L100.0100 ####[facility] [address] [place], [address] Chloride [Moles/Vol] 102 mmol/L Normal 98-108 [facility] Comment on above: Performed By: #### L 500.2500, L100.0100 ####[facility] [address] [place], [address] CO2 [Moles/Vol] 23.7 mmol/L Normal 21.0-32.0 [facility] Comment on above: Performed By: #### L 500.2500, L100.0100 ####[facility] [address] [place], [address] Creatinine [Mass/Vol] 1.31 mg/dL High 0.70-1.20 [facility] Comment on above: Performed By: #### L 500.2500, L100.0100 ####[facility] [address] [place], [address] ECRCL 33.41 ml/min Low 50-250 [facility] Comment on above: Performed By: #### L 500.2500, L100.0100 ####[facility] [address] [place], [address] GAP 12 Normal 5-15 [facility] Comment on above: Performed By: #### L 500.2500, L100.0100 ####[facility] [address] [place], [address] GFR/1.73 sq M.predicted among non-blacks MDRD (S/P/Bld) [Vol rate/Area] 41 mL/min/{1.73_m2} Low >60 [facility] Comment on above: Result Comment: mL/m in/1.73m2 CKD-EPI Creatinine Equation (2020) Performed By: #### L 500.2500, L100.0100 ####[facility] [address] [place], [address] Glucose [Mass/Vol] 133 mg/dL High 70-99 [facility] Comment on above: Performed By: #### L 500.2500, L100.0100 ####[facility] [address] [place], [address] Potassium [Moles/Vol] 3.5 mmol/L Normal 3.3-5.1 [facility] Comment on above: Performed By: #### L 500.2500, L100.0100 ####[facility] [address] [place], [address] Sodium [Moles/Vol] 138 mmol/L Normal 133-145 [facility] Comment on above: Performed By: #### L 500.2500, L100.0100 ####[facility] [address] [place], [address] Urea nitrogen [Mass/Vol] 46 mg/dL High 4-19 [facility] Comment on above: Performed By: #### L 500.2500, L100.0100 ####[facility] [address] [place], [address] Basophil percentageOrdered B y: Melba Hartmann on 01-24-2025 Basophils/100 WBC (Bld) 0.2 % 0-1 [facility] Bedside Glucoseon 01-24-2025 FINGERSTICK GLU 167 mg/dL High 74-106 [facility] Comment on above: Result Comment: KATARINA GEMENT OF PATIENT CARE PER NURSING PROTOCOL Performed By: #### L 501.080 ####[facility] [address] [place], [address] FINGERSTICK GLU 143 mg/dL High 74-106 [facility] Comment on above: Result Comment: KATARINA GEMENT OF PATIENT CARE PER NURSING PROTOCOL Performed By: #### L 501.080 ####[facility] [address] [place], [address] CBC W/Diff, Automatedon - Absolute Lymph 2.19 X10 3/uL Normal 0.83-4.51 [facility] Comment on above: Performed By: #### L 500.2500, L100.0100 ####[facility] [address] [place], [address] Absolute Neut 8.2 X10 3/uL High 2.0-7.7 [facility] Comment on above: Performed By: #### L 500.2500, L100.0100 ####[facility] [address] [place], [address] Basophils/100 WBC (Bld) 0.2 % Normal 0-1 [facility] Comment on above: Performed By: #### L 500.2500, L100.0100 ####[facility] [address] [place], [address] Eosinophils/100 WBC (Bld) 0.2 % Normal 0-5 [facility] Comment on above: Performed By: #### L 500.2500, L100.0100 ####[facility] [address] [place] [place], [address] Erythrocyte distribution width (RBC) [Ratio] 15.8 % High 11.6-14.6 [facility] Comment on above: Performed By: #### L 500.2500, L100.0100 ####[facility] [address] [place], [address] Hematocrit (Bld) [Volume fraction] 40.7 % Normal 37-47 [facility] Comment on above: Performed By: #### L 500.2500, L100.0100 ####[facility] [address] [place], [address] Hemoglobin (Bld) [Mass/Vol] 12.7 g/dL Normal 12.0-15.0 [facility] Comment on above: Performed By: #### L 500.2500, L100.0100 ####[facility] [address] [place], [address] IG% 0.400 Normal 0.0-0.9 [facility] Comment on above: Result Comment: IG% - Immature Granulocytes (promyelocytes, myelocytes andmetamyelocytes) > 1% indicates that a LEFT SHIFT is Present. Performed By: #### L 500.2500, L100.0100 ####[facility] [address] [place], [address] Lymphocytes/100 WBC (Bld) 19.3 % Normal 19-41 [facility] Comment on above: Performed By: #### L 500.2500, L100.0100 ####[facility] [address] [place], [address] MCH (RBC) [Entitic mass] 27.4 pg Normal 27.0-32.0 [facility] Comment on above: Performed By: #### L 500.2500, L100.0100 ####[facility] [address] [place], [address] MCHC (RBC) [Mass/Vol] 31.2 g/dL Low 32-36 [facility] Comment on above: Performed By: #### L 500.2500, L100.0100 ####[facility] [address] [place], [address] MCV (RBC) [Entitic vol] 87.7 fL Normal 81-99 [facility] Comment on above: Performed By: #### L 500.2500, L100.0100 ####[facility] [address] [place], [address] Monocytes/100 WBC (Bld) 7.4 % Normal 0-10 [facility] Comment on above: Performed By: #### L 500.2500, L100.0100 ####[facility] [address] [place], [address] Neutrophils/100 WBC (Bld) 72.5 % High 47-70 [facility] Comment on above: Performed By: #### L 500.2500, L100.0100 ####[facility] [address] [place], [address] Nucleated RBC (Bld) [#/Vol] 0 10*3/uL Normal 0-5 [facility] Comment on above: Performed By: #### L 500.2500, L100.0100 ####[facility] [address] [place], [address] Platelet mean volume (Bld) [Entitic vol] 10.9 fL Normal 6.2-12.0 [facility] Comment on above: Performed By: #### L 500.2500, L100.0100 ####[facility] [address] [place], [address] Platelets (Bld) [#/Vol] 297 10*3/uL Normal 150-450 [facility] Comment on above: Performed By: #### L 500.2500, L100.0100 ####[facility] [address] [place], [address] RBC (Bld) [#/Vol] 4.64 10*6/uL Normal 4.2-5.4 [facility] Comment on above: Performed By: #### L 500.2500, L100.0100 ####[facility] [address] [place], [address] RDW SD 50.9 fl High 35.1-43.9 [facility] Comment on above: Performed By: #### L 500.2500, L100.0100 ####[facility] [address] [place], [address] WBC (Bld) [#/Vol] 11.3 10*3/uL High 4.4-11.0 [facility] Comment on above: Performed By: #### L 500.2500, L100.0100 ####[facility] [address] [place], [address] Carbon dioxide, total [Moles /volume] in Central venous bloodOrdered By: Melba Hartmann on 01-24-2025 CO2 [Moles/Vol] 23.7 mmol/L 21.0-32.0 [facility] Chloride assayOrdered By: Ewelina Hartmann on 01-24-2025 Chloride [Moles/Vol] 102 mmol/L 98-108 [facility] Discharge Instructionon 05-2 Discharge Instruction Normal [facility] Electrocardiogram reportOrde red By: Marcelina Soto on 01-24-2025 EKG study [facility] Work Phone: [phone] Eosinophil percentageOrdered By: Melba Hartmann on 01-24-2025 Eosinophils/100 WBC (Bld) 0.2 % 0-5 [facility] Erythrocyte distribution wid th ratioOrdered By: Melba Hartmann on 01-24-2025 Erythrocyte distribution width (RBC) [Ratio] 15.8 % High 11.6-14.6 [facility] Erythrocyte distribution wid th standard deviationOrdered By: Melba Hartmann on 01-24-2025 Erythrocyte distribution width (RBC) [Ratio] 50.9 fl High 35.1-43.9 [facility] Glomerular filtration rate ( GFR) estimation/1.73 sq m using serum, plasma, or whole bOrdered By: Melba Hartmann on 01-24-2025 GFR/1.73 sq M.predicted among non-blacks MDRD (S/P/Bld) [Vol rate/Area] 41 mL/min/{1.73_m2} Low >60 [facility] Glucose measurement at bedsi deOrdered By: Melba Hartmann on 01-24-2025 Glucose [Mass/Vol] 167 mg/dL High 74-106 [facility] Hematocrit Auto (Bld) [Volum e fraction]Ordered By: Melba Hartmann 01-24-2025 Hematocrit (Bld) [Volume fraction] 40.7 % 37-47 [facility] Hemoglobin measurementOrdere d By: Melba Hartmann on 01-24-2025 Hemoglobin (Bld) [Mass/Vol] 12.7 g/dL 12.0-15.0 [facility] Immature granulocytes/100 WB C Auto (Bld)Ordered By: Melba Hartmann on 01-24-2025 Immature granulocytes/100 WBC (Bld) 0.400 % 0.0-0.9 [facility] MCV (mean corpuscular volume ) determinationOrdered By: Melba Hartmann on 01-24-2025 MCV (RBC) [Entitic vol] 87.7 fL 81-99 [facility] Mean corpuscular hemoglobin (MCH) determinationOrdered By: Melba Hartmann on 01-24-2025 MCH (RBC) [Entitic mass] 27.4 pg 27.0-32.0 [facility] Monocyte percentageOrdered B y: Melba Hartmann on 01-24-2025 Monocytes/100 WBC (Bld) 7.4 % 0-10 [facility] Neutrophil percentageOrdered By: Melba Hartmann on 01-24-2025 Neutrophils/100 WBC (Bld) 72.5 % High 47-70 [facility] Platelet countOrdered By: Na ewelina Hartmann on 01-24-2025 Platelets (Bld) [#/Vol] 297 10*3/uL 150-450 [facility] Potassium measurement (mass/ volume)Ordered By: Melba Hartmann on 01-24-2025 Potassium (Unsp spec) [Mass/Vol] 3.5 mmol/L 3.3-5.1 [facility] RBC Auto (Bld) [#/Vol]Ordere d By: Melba Hartmann on 01-24-2025 RBC (Bld) [#/Vol] 4.64 10*6/uL 4.2-5.4 [facility] Serum creatinine measurement (mass/volume)Ordered By: Melba Hartmann on 01-24-2025 Creatinine [Mass/Vol] 1.31 mg/dL High 0.70-1.20 [facility] Serum glucose measurement (m ass/volume)Ordered By: Melba Hartmann 01-24-2025 Glucose [Mass/Vol] 133 mg/dL High 70-99 [facility] Serum or plasma calcium melanie urement (mass/volume)Ordered By: Melba Hartmann 01-24-2025 Calcium [Mass/Vol] 10.1 mg/dL 7.6-11.0 [facility] Serum or plasma urea nitroge n measurement (mass/volume)Ordered By: Melba Hartmann on 01-24-2025 Urea nitrogen [Mass/Vol] 46 mg/dL High 4-19 [facility] Sodium levelOrdered By: Melba Hartmann on 01-24-2025 Sodium [Moles/Vol] 138 mmol/L 133-145 [facility] White blood cell (WBC) count Ordered By: Melba Hartmann on 01-24-2025 WBC (Bld) [#/Vol] 11.3 10*3/uL High 4.4-11.0 [facility] Basic Metabolic Profile (BMP )on 01-23-2025 BUN/CRE 33.0 RATIO High 10-20 [facility] Comment on above: Performed By: #### L 100.0100, L500.2500 ####[facility] [address] [place], [address] Calcium [Mass/Vol] 10.8 mg/dL Normal 7.6-11.0 [facility] Comment on above: Performed By: #### L 100.0100, L500.2500 ####[facility] [address] [place], [address] Chloride [Moles/Vol] 98 mmol/L Normal 98-108 [facility] Comment on above: Performed By: #### L 100.0100, L500.2500 ####[facility] [address] [place], [address] CO2 [Moles/Vol] 25.4 mmol/L Normal 21.0-32.0 [facility] Comment on above: Performed By: #### L 100.0100, L500.2500 ####[facility] [address] [place], [address] Creatinine [Mass/Vol] 1.32 mg/dL High 0.70-1.20 [facility] Comment on above: Performed By: #### L 100.0100, L500.2500 ####[facility] [address] [place], [address] ECRCL 32.84 ml/min Low 50-250 [facility] Comment on above: Performed By: #### L 100.0100, L500.2500 ####[facility] [address] [place], [address] GAP 12 Normal 5-15 [facility] Comment on above: Performed By: #### L 100.0100, L500.2500 ####[facility] [address] [place], [address] GFR/1.73 sq M.predicted among non-blacks MDRD (S/P/Bld) [Vol rate/Area] 41 mL/min/{1.73_m2} Low >60 [facility] Comment on above: Result Comment: mL/m in/1.73m2 CKD-EPI Creatinine Equation (2020) Performed By: #### L 100.0100, L500.2500 ####[facility] [address] [place], [address] Glucose [Mass/Vol] 200 mg/dL High 70-99 [facility] Comment on above: Performed By: #### L 100.0100, L500.2500 ####[facility] [address] [place], [address] Potassium [Moles/Vol] 5.2 mmol/L High 3.3-5.1 [facility] Comment on above: Result Comment: Hemo lysis present, Results??could be affected.?? Performed By: #### L 100.0100, L500.2500 ####[facility] [address] [place], [address] Sodium [Moles/Vol] 135 mmol/L Normal 133-145 [facility] Comment on above: Performed By: #### L 100.0100, L500.2500 ####[facility] [address] [place], [address] Urea nitrogen [Mass/Vol] 44 mg/dL High 4-19 [facility] Comment on above: Performed By: #### L 100.0100, L500.2500 ####[facility] [address] [place], [address] Bedside Glucoseon 01-23-2025 FINGERSTICK GLU 294 mg/dL High 74-106 [facility] Comment on above: Result Comment: KATARINA GEMENT OF PATIENT CARE PER NURSING PROTOCOL Performed By: #### L 501.080 ####[facility] [address] [place], [address] FINGERSTICK GLU 314 mg/dL High 74-106 [facility] Comment on above: Result Comment: KATARINA GEMENT OF PATIENT CARE PER NURSING PROTOCOL Performed By: #### L 501.080 ####[facility] [address] [place], [address] FINGERSTICK GLU 291 mg/dL High 74-106 [facility] Comment on above: Result Comment: KATARINA GEMENT OF PATIENT CARE PER NURSING PROTOCOL Performed By: #### L 501.080 ####[facility] [address] [place], [address] FINGERSTICK GLU 214 mg/dL High 74-106 [facility] Comment on above: Result Comment: KATARINA GEMENT OF PATIENT CARE PER NURSING PROTOCOL Performed By: #### L 501.080 ####[facility] [address] [place], [address] CBC W/Diff, Automatedon 05- Absolute Lymph 0.74 X10 3/uL Low 0.83-4.51 [facility] Comment on above: Performed By: #### L 100.0100, L500.2500 ####[facility] [address] [place], [address] Absolute Neut 10.9 X10 3/uL High 2.0-7.7 [facility] Comment on above: Performed By: #### L 100.0100, L500.2500 ####[facility] [address] [place], [address] Basophils/100 WBC (Bld) 0.1 % Normal 0-1 [facility] Comment on above: Performed By: #### L 100.0100, L500.2500 ####[facility] [address] [place], [address] Eosinophils/100 WBC (Bld) 0.0 % Normal 0-5 [facility] Comment on above: Performed By: #### L 100.0100, L500.2500 ####[facility] [address] [place], [address] Erythrocyte distribution width (RBC) [Ratio] 15.8 % High 11.6-14.6 [facility] Comment on above: Performed By: #### L 100.0100, L500.2500 ####[facility] [address] [place], [address] Hematocrit (Bld) [Volume fraction] 41.8 % Normal 37-47 [facility] Comment on above: Performed By: #### L 100.0100, L500.2500 ####[facility] [address] [place], [address] Hemoglobin (Bld) [Mass/Vol] 13.1 g/dL Normal 12.0-15.0 [facility] Comment on above: Performed By: #### L 100.0100, L500.2500 ####[facility] [address] [place], [address] IG% 0.200 Normal 0.0-0.9 [facility] Comment on above: Result Comment: IG% - Immature Granulocytes (promyelocytes, myelocytes andmetamyelocytes) > 1% indicates that a LEFT SHIFT is Present. Performed By: #### L 100.0100, L500.2500 ####[facility] [address] [place], [address] Lymphocytes/100 WBC (Bld) 6.2 % Low 19-41 [facility] Comment on above: Performed By: #### L 100.0100, L500.2500 ####[facility] [address] [place], [address] MCH (RBC) [Entitic mass] 27.3 pg Normal 27.0-32.0 [facility] Comment on above: Performed By: #### L 100.0100, L500.2500 ####[facility] [address] [place], [address] MCHC (RBC) [Mass/Vol] 31.3 g/dL Low 32-36 [facility] Comment on above: Performed By: #### L 100.0100, L500.2500 ####[facility] [address] [place], [address] MCV (RBC) [Entitic vol] 87.1 fL Normal 81-99 [facility] Comment on above: Performed By: #### L 100.0100, L500.2500 ####[facility] [address] [place], [address] Monocytes/100 WBC (Bld) 2.7 % Normal 0-10 [facility] Comment on above: Performed By: #### L 100.0100, L500.2500 ####[facility] [address] [place], [address] Neutrophils/100 WBC (Bld) 90.8 % High 47-70 [facility] Comment on above: Performed By: #### L 100.0100, L500.2500 ####[facility] [address] [place], [address] Nucleated RBC (Bld) [#/Vol] 0 10*3/uL Normal 0-5 [facility] Comment on above: Performed By: #### L 100.0100, L500.2500 ####[facility] [address] [place], [address] Platelet mean volume (Bld) [Entitic vol] 11.6 fL Normal 6.2-12.0 [facility] Comment on above: Performed By: #### L 100.0100, L500.2500 ####[facility] [address] [place], [address] Platelets (Bld) [#/Vol] 322 10*3/uL Normal 150-450 [facility] Comment on above: Performed By: #### L 100.0100, L500.2500 ####[facility] [address] [place], [address] RBC (Bld) [#/Vol] 4.80 10*6/uL Normal 4.2-5.4 [facility] Comment on above: Performed By: #### L 100.0100, L500.2500 ####[facility] [address] [place], [address] RDW SD 50.2 fl High 35.1-43.9 [facility] Comment on above: Performed By: #### L 100.0100, L500.2500 ####[facility] [address] [place], [address] WBC (Bld) [#/Vol] 12.0 10*3/uL High 4.4-11.0 [facility] Comment on above: Performed By: #### L 100.0100, L500.2500 ####[facility] [address] [place], [address] Basic Metabolic Profile (BMP )on 01-22-2025 BUN/CRE 29.2 RATIO High 10-20 [facility] Comment on above: Performed By: #### L 500.2500, L100.0100 ####[facility] [address] [place], [address] Calcium [Mass/Vol] 10.2 mg/dL Normal 7.6-11.0 [facility] Comment on above: Performed By: #### L 500.2500, L100.0100 ####[facility] [address] [place], [address] Chloride [Moles/Vol] 99 mmol/L Normal 98-108 [facility] Comment on above: Performed By: #### L 500.2500, L100.0100 ####[facility] [address] [place], [address] CO2 [Moles/Vol] 27.0 mmol/L Normal 21.0-32.0 [facility] Comment on above: Performed By: #### L 500.2500, L100.0100 ####[facility] [address] [place], [address] Creatinine [Mass/Vol] 1.07 mg/dL Normal 0.70-1.20 [facility] Comment on above: Performed By: #### L 500.2500, L100.0100 ####[facility] [address] [place], [address] ECRCL 40.54 ml/min Low 50-250 [facility] Comment on above: Performed By: #### L 500.2500, L100.0100 ####[facility] [address] [place], [address] GAP 10 Normal 5-15 [facility] Comment on above: Performed By: #### L 500.2500, L100.0100 ####[facility] [address] [place], [address] GFR/1.73 sq M.predicted among non-blacks MDRD (S/P/Bld) [Vol rate/Area] 52 mL/min/{1.73_m2} Low >60 [facility] Comment on above: Result Comment: mL/m in/1.73m2 CKD-EPI Creatinine Equation (2020) Performed By: #### L 500.2500, L100.0100 ####[facility] [address] [place], [address] Glucose [Mass/Vol] 160 mg/dL High 70-99 [facility] Comment on above: Performed By: #### L 500.2500, L100.0100 ####[facility] [address] [place], [address] Potassium [Moles/Vol] 4.8 mmol/L Normal 3.3-5.1 [facility] Comment on above: Performed By: #### L 500.2500, L100.0100 ####[facility] [address] [place], [address] Sodium [Moles/Vol] 136 mmol/L Normal 133-145 [facility] Comment on above: Performed By: #### L 500.2500, L100.0100 ####[facility] [address] [place], [address] Urea nitrogen [Mass/Vol] 31 mg/dL High 4-19 [facility] Comment on above: Performed By: #### L 500.2500, L100.0100 ####[facility] [address] [place], [address] Bedside Glucoseon 01-22-2025 FINGERSTICK GLU 310 mg/dL High 74-106 [facility] Comment on above: Result Comment: KATARINA GEMENT OF PATIENT CARE PER NURSING PROTOCOL Performed By: #### L 501.080 ####[facility] [address] [place], [address] FINGERSTICK GLU 269 mg/dL High 74-106 [facility] Comment on above: Result Comment: KATARINA GEMENT OF PATIENT CARE PER NURSING PROTOCOL Performed By: #### L 501.080 ####[facility] [address] [place], [address] FINGERSTICK GLU 232 mg/dL High 74-106 [facility] Comment on above: Result Comment: KATARINA GEMENT OF PATIENT CARE PER NURSING PROTOCOL Performed By: #### L 501.080 ####[facility] [address] [place], [address] FINGERSTICK GLU 183 mg/dL High 74-106 [facility] Comment on above: Result Comment: KATARINA GEMENT OF PATIENT CARE PER NURSING PROTOCOL Performed By: #### L 501.080 ####[facility] [address] [place], [address] CBC W/Diff, Automatedon 05-2 -2024 Absolute Lymph 0.73 X10 3/uL Low 0.83-4.51 [facility] Comment on above: Performed By: #### L 500.2500, L100.0100 ####[facility] [address] [place], [address] Absolute Neut 11.7 X10 3/uL High 2.0-7.7 [facility] Comment on above: Performed By: #### L 500.2500, L100.0100 ####[facility] [address] [place], [address] Basophils/100 WBC (Bld) 0.0 % Normal 0-1 [facility] Comment on above: Performed By: #### L 500.2500, L100.0100 ####[facility] [address] [place], [address] Eosinophils/100 WBC (Bld) 0.0 % Normal 0-5 [facility] Comment on above: Performed By: #### L 500.2500, L100.0100 ####[facility] [address] [place], [address] Erythrocyte distribution width (RBC) [Ratio] 15.9 % High 11.6-14.6 [facility] Comment on above: Performed By: #### L 500.2500, L100.0100 ####[facility] [address] [place], [address] Hematocrit (Bld) [Volume fraction] 35.6 % Low 37-47 [facility] Comment on above: Performed By: #### L 500.2500, L100.0100 ####[facility] [address] [place], [address] Hemoglobin (Bld) [Mass/Vol] 11.1 g/dL Low 12.0-15.0 [facility] Comment on above: Performed By: #### L 500.2500, L100.0100 ####[facility] [address] [place], [address] IG% 0.500 Normal 0.0-0.9 [facility] Comment on above: Result Comment: IG% - Immature Granulocytes (promyelocytes, myelocytes andmetamyelocytes) > 1% indicates that a LEFT SHIFT is Present. Performed By: #### L 500.2500, L100.0100 ####[facility] [address] [place], [address] Lymphocytes/100 WBC (Bld) 5.7 % Low 19-41 [facility] Comment on above: Performed By: #### L 500.2500, L100.0100 ####[facility] [address] [place], [address] MCH (RBC) [Entitic mass] 27.3 pg Normal 27.0-32.0 [facility] Comment on above: Performed By: #### L 500.2500, L100.0100 ####[facility] [address] [place], [address] MCHC (RBC) [Mass/Vol] 31.2 g/dL Low 32-36 [facility] Comment on above: Performed By: #### L 500.2500, L100.0100 ####[facility] [address] [place], [address] MCV (RBC) [Entitic vol] 87.7 fL Normal 81-99 [facility] Comment on above: Performed By: #### L 500.2500, L100.0100 ####[facility] [address] [place], [address] Monocytes/100 WBC (Bld) 2.4 % Normal 0-10 [facility] Comment on above: Performed By: #### L 500.2500, L100.0100 ####[facility] [address] [place], [address] Neutrophils/100 WBC (Bld) 91.4 % High 47-70 [facility] Comment on above: Performed By: #### L 500.2500, L100.0100 ####[facility] [address] [place], [address] Nucleated RBC (Bld) [#/Vol] 0 10*3/uL Normal 0-5 [facility] Comment on above: Performed By: #### L 500.2500, L100.0100 ####[facility] [address] [place], [address] Platelet mean volume (Bld) [Entitic vol] 11.1 fL Normal 6.2-12.0 [facility] Comment on above: Performed By: #### L 500.2500, L100.0100 ####[facility] [address] [place], [address] Platelets (Bld) [#/Vol] 281 10*3/uL Normal 150-450 [facility] Comment on above: Performed By: #### L 500.2500, L100.0100 ####[facility] [address] [place], [address] RBC (Bld) [#/Vol] 4.06 10*6/uL Low 4.2-5.4 [facility] Comment on above: Performed By: #### L 500.2500, L100.0100 ####[facility] [address] [place], [address] RDW SD 51.3 fl High 35.1-43.9 [facility] Comment on above: Performed By: #### L 500.2500, L100.0100 ####[facility] [address] [place], [address] WBC (Bld) [#/Vol] 12.8 10*3/uL High 4.4-11.0 [facility] Comment on above: Performed By: #### L 500.2500, L100.0100 ####[facility] [address] [place], [address] Urine Cultureon 01-22-2025 URC Normal [facility] Comment on above: Performed By: #### M 100.2200 ####[facility] [address] [place], [address] Basic Metabolic Profile (BMP )on 01-21-2025 BUN/CRE 19.6 RATIO Normal 10-20 [facility] Comment on above: Performed By: #### L 503.7505, L500.2500 ####[facility] [address] [place], [address] Calcium [Mass/Vol] 9.8 mg/dL Normal 7.6-11.0 [facility] Comment on above: Performed By: #### L 503.7505, L500.2500 ####[facility] [address] [place], [address] Chloride [Moles/Vol] 99 mmol/L Normal 98-108 [facility] Comment on above: Performed By: #### L 503.7505, L500.2500 ####[facility] [address] [place], [address] CO2 [Moles/Vol] 24.3 mmol/L Normal 21.0-32.0 [facility] Comment on above: Performed By: #### L 503.7505, L500.2500 ####[facility] [address] [place], [address] Creatinine [Mass/Vol] 1.19 mg/dL Normal 0.70-1.20 [facility] Comment on above: Performed By: #### L 503.7505, L500.2500 ####[facility] [address] [place], [address] ECRCL 36.45 ml/min Low 50-250 [facility] Comment on above: Performed By: #### L 503.7505, L500.2500 ####[facility] [address] [place], [address] GAP 14 Normal 5-15 [facility] Comment on above: Performed By: #### L 503.7505, L500.2500 ####[facility] [address] [place], [address] GFR/1.73 sq M.predicted among non-blacks MDRD (S/P/Bld) [Vol rate/Area] 46 mL/min/{1.73_m2} Low >60 [facility] Comment on above: Result Comment: mL/m in/1.73m2 CKD-EPI Creatinine Equation (2020) Performed By: #### L 503.7505, L500.2500 ####[facility] [address] [place], [address] Glucose [Mass/Vol] 208 mg/dL High 70-99 [facility] Comment on above: Performed By: #### L 503.7505, L500.2500 ####[facility] [address] [place], [address] Potassium [Moles/Vol] 4.0 mmol/L Normal 3.3-5.1 [facility] Comment on above: Performed By: #### L 503.7505, L500.2500 ####[facility] [address] [place], [address] Sodium [Moles/Vol] 138 mmol/L Normal 133-145 [facility] Comment on above: Performed By: #### L 503.7505, L500.2500 ####[facility] [address] [place], [address] Urea nitrogen [Mass/Vol] 23 mg/dL High 4-19 [facility] Comment on above: Performed By: #### L 503.7505, L500.2500 ####[facility] [address] [place], [address] Bedside Glucoseon 01-21-2025 FINGERSTICK GLU 271 mg/dL High 74-106 [facility] Comment on above: Result Comment: KATARINA GEMENT OF PATIENT CARE PER NURSING PROTOCOL Performed By: #### L 501.080 ####[facility] [address] [place], [address] FINGERSTICK GLU 254 mg/dL High 74-106 [facility] Comment on above: Result Comment: KATARINA GEMENT OF PATIENT CARE PER NURSING PROTOCOL Performed By: #### L 501.080 ####[facility] [address] [place], [address] FINGERSTICK GLU 323 mg/dL High 74-106 [facility] Comment on above: Result Comment: KATARINA GEMENT OF PATIENT CARE PER NURSING PROTOCOL Performed By: #### L 501.080 ####[facility] [address] [place], [address] FINGERSTICK GLU 202 mg/dL High 74-106 [facility] Comment on above: Result Comment: KATARINA GEMENT OF PATIENT CARE PER NURSING PROTOCOL Performed By: #### L 501.080 ####[facility] [address] [place], [address] CBC W/Diff, Automatedon 05-2 Absolute Lymph 0.79 X10 3/uL Low 0.83-4.51 [facility] Comment on above: Performed By: #### L 100.0100 ####[facility] [address] [place], [address] Absolute Neut 9.1 X10 3/uL High 2.0-7.7 [facility] Comment on above: Performed By: #### L 100.0100 ####[facility] [address] [place], [address] Basophils/100 WBC (Bld) 0.0 % Normal 0-1 [facility] Comment on above: Performed By: #### L 100.0100 ####[facility] [address] [place], [address] Eosinophils/100 WBC (Bld) 0.0 % Normal 0-5 [facility] Comment on above: Performed By: #### L 100.0100 ####[facility] [address] [place], [address] Erythrocyte distribution width (RBC) [Ratio] 16.0 % High 11.6-14.6 [facility] Comment on above: Performed By: #### L 100.0100 ####[facility] [address] [place], [address] Hematocrit (Bld) [Volume fraction] 35.0 % Low 37-47 [facility] Comment on above: Performed By: #### L 100.0100 ####[facility] [address] [place], [address] Hemoglobin (Bld) [Mass/Vol] 10.8 g/dL Low 12.0-15.0 [facility] Comment on above: Performed By: #### L 100.0100 ####[facility] [address] [place], [address] IG% 0.400 Normal 0.0-0.9 [facility] Comment on above: Result Comment: IG% - Immature Granulocytes (promyelocytes, myelocytes andmetamyelocytes) > 1% indicates that a LEFT SHIFT is Present. Performed By: #### L 100.0100 ####[facility] [address] [place] [place], [address] Lymphocytes/100 WBC (Bld) 7.7 % Low 19-41 [facility] Comment on above: Performed By: #### L 100.0100 ####[facility] [address] [place], [address] MCH (RBC) [Entitic mass] 27.4 pg Normal 27.0-32.0 [facility] Comment on above: Performed By: #### L 100.0100 ####[facility] [address] [place], [address] MCHC (RBC) [Mass/Vol] 30.9 g/dL Low 32-36 [facility] Comment on above: Performed By: #### L 100.0100 ####[facility] [address] [place], [address] MCV (RBC) [Entitic vol] 88.8 fL Normal 81-99 [facility] Comment on above: Performed By: #### L 100.0100 ####[facility] [address] [place], [address] Monocytes/100 WBC (Bld) 3.5 % Normal 0-10 [facility] Comment on above: Performed By: #### L 100.0100 ####[facility] [address] [place], [address] Neutrophils/100 WBC (Bld) 88.4 % High 47-70 [facility] Comment on above: Performed By: #### L 100.0100 ####[facility] [address] [place], [address] Nucleated RBC (Bld) [#/Vol] 0 10*3/uL Normal 0-5 [facility] Comment on above: Performed By: #### L 100.0100 ####[facility] [address] [place], [address] Platelet mean volume (Bld) [Entitic vol] 11.0 fL Normal 6.2-12.0 [facility] Comment on above: Performed By: #### L 100.0100 ####[facility] [address] [place], [address] Platelets (Bld) [#/Vol] 245 10*3/uL Normal 150-450 [facility] Comment on above: Performed By: #### L 100.0100 ####[facility] [address] [place], [address] RBC (Bld) [#/Vol] 3.94 10*6/uL Low 4.2-5.4 [facility] Comment on above: Performed By: #### L 100.0100 ####[facility] [address] [place], [address] RDW SD 51.8 fl High 35.1-43.9 [facility] Comment on above: Performed By: #### L 100.0100 ####[facility] [address] [place], [address] WBC (Bld) [#/Vol] 10.3 10*3/uL Normal 4.4-11.0 [facility] Comment on above: Performed By: #### L 100.0100 ####[facility] [address] [place], [address] Chest 1 View (Portable)on Chest 1 View (Portable) Normal [facility] L503.7505on 01-21-2025 Natriuretic peptide B (Bld) [Mass/Vol] 90411 pg/mL High <=1800 [facility] Comment on above: Result Comment: Hear t Failure Unlikely: < 300 pg/mLHeart Failure Likely< 50 Years: > 450 pg/mL50-75 Years: > 900 pg/mL>75 Years: > 1800 pg/mL Performed By: #### L 503.7505, L500.2500 ####[facility] [address] [place], [address] Natriuretic peptide.B prohor hayley N-Terminal [Mass/volume] in Serum or PlasmaOrdered By: Sandeep Marie on 01-21-2025 Natriuretic peptide.B prohormone N-Terminal [Mass/Vol] 89743 pg/mL High <1800 [facility] 12 Lead EKGon 01-20-2025 12 Lead EKG Normal [facility] Activated partial thrombopla stin time (aPTT) in platelet poor plasma by coagulation aOrdered By: Jeevan Yoder on 01-20-2025 aPTT Coag (PPP) [Time] 26.9 s 24.1-36.2 [facility] Assessment of wrist artery p atency prior to arterial punctureOrdered By: Lucio Borden on 01-20-2025 Arterial patency Wrist artery --pre arterial puncture Positive [facility] Bedside Glucoseon 01-20-2025 FINGERSTICK GLU 265 mg/dL High 74-106 [facility] Comment on above: Result Comment: KATARINA GEMENT OF PATIENT CARE PER NURSING PROTOCOL Performed By: #### L 501.080 ####[facility] [address] [place], [address] FINGERSTICK GLU 389 mg/dL High 74-106 [facility] Comment on above: Result Comment: KATARINA GEMENT OF PATIENT CARE PER NURSING PROTOCOL Performed By: #### L 501.080 ####[facility] [address] [place], [address] FINGERSTICK GLU 361 mg/dL High 74-106 [facility] Comment on above: Result Comment: KATARINA GEMENT OF PATIENT CARE PER NURSING PROTOCOL Performed By: #### L 501.080 ####[facility] [address] [place], [address] FINGERSTICK GLU 338 mg/dL High 74-106 [facility] Comment on above: Result Comment: KATARINA GEMENT OF PATIENT CARE PER NURSING PROTOCOL Performed By: #### L 501.080 ####[facility] [address] [place], [address] Bilirubin Test strip Ql (U)O rdered By: Jeevan Yoder on 01-20-2025 Bilirubin Ql (U) Negative Negative [facility] Bilirubin, totalOrdered By: Jeevan Yoder on 01-20-2025 Bilirubin [Mass/Vol] 0.26 mg/dL 0.00-1.30 [facility] BARON TEST Positive Normal [facility] Comment on above: Performed By: #### L 9000.0800 ####[facility] [address] [place], [address] Base excess Calc (Bld) [Moles/Vol] 10 mmol/L High -2 to +2 [facility] Comment on above: Performed By: #### L 9000.0800 ####[facility] [address] [place], [address] Blood Gas Type ART Normal [facility] Comment on above: Performed By: #### L 9000.0800 ####[facility] [address] [place], [address] CO2 [Moles/Vol] 37 mmol/L Normal [facility] Comment on above: Performed By: #### L 9000.0800 ####[facility] [address] [place], [address] FI02 30.0 Normal [facility] Comment on above: Performed By: #### L 9000.0800 ####[facility] [address] [place], [address] HCO3 (Bld) [Moles/Vol] 35.5 mmol/L High 22-26 [facility] Comment on above: Performed By: #### L 9000.0800 ####[facility] [address] [place], [address] Normal [facility] Comment on above: Performed By: #### L 9000.0800 ####[facility] [address] [place], [address] O2 Delivery Dev BiPAP Normal [facility] Comment on above: Performed By: #### L 9000.0800 ####[facility] [address] [place], [address] pCO2 59.4 mmHg High 35-45 [facility] Comment on above: Performed By: #### L 0.0800 ####[facility] [address] [place], [address] PEEP 8 Normal [facility] Comment on above: Performed By: #### L 9000.0800 ####[facility] [address] [place], [address] pH (Bld) 7.38 [pH] Normal 7.35-7.45 [facility] Comment on above: Performed By: #### L 8999.0800 ####[facility] [address] [place], [address] PO2 21 mmHG Invalid Interpretation Code 75-100 [facility] Comment on above: Performed By: #### L 900.0800 ####[facility] [address] [place], [address] Read Back By Yes Normal [facility] Comment on above: Performed By: #### L 0.0800 ####[facility] [address] [place], [address] Results To tereletsky Normal [facility] Comment on above: Performed By: #### L 9000.0800 ####[facility] [address] [place], [address] RR 14 Normal [facility] Comment on above: Performed By: #### L 9000.0800 ####[facility] [address] [place], [address] SITE R Radial Normal [facility] Comment on above: Performed By: #### L 9000.0800 ####[facility] [address] [place], [address] SO2 32 Low 95-99 [facility] Comment on above: Performed By: #### L 9000.0800 ####[facility] [address] [place], [address] Time Given 16:55:40 [facility] Comment on above: Performed By: #### L 9000.0800 ####[facility] [address] [place], [address] Vt 500.0 mL Normal [facility] Comment on above: Performed By: #### L 9000.0800 ####[facility] [address] [place], [address] BARON TEST Positive Normal [facility] Comment on above: Performed By: #### L 9000.0800 ####[facility] [address] [place], [address] Base excess Calc (Bld) [Moles/Vol] 5 mmol/L High -2 to +2 [facility] Comment on above: Performed By: #### L 9000.0800 ####[facility] [address] [place], [address] Blood Gas Type ART Normal [facility] Comment on above: Performed By: #### L 9000.0800 ####[facility] [address] [place], [address] CO2 [Moles/Vol] 33 mmol/L [facility] Comment on above: Performed By: #### L 9000.0800 ####[facility] [address] [place], [address] FI02 30.0 [facility] Comment on above: Performed By: #### L 9000.0800 ####[facility] [address] [place], [address] HCO3 (Bld) [Moles/Vol] 30.8 mmol/L High 22-26 [facility] Comment on above: Performed By: #### L 9000.0800 ####[facility] [address] [place], [address] Mode Not entered [facility] Comment on above: Performed By: #### L 9000.0800 ####[facility] [address] [place], [address] O2 Delivery Dev BiPAP [facility] Comment on above: Performed By: #### L 9000.0800 ####[facility] [address] [place], [address] pCO2 56.2 mmHg High 35-45 [facility] Comment on above: Performed By: #### L 9000.0800 ####[facility] [address] [place], [address] PEEP 8 Normal [facility] Comment on above: Performed By: #### L 9000.0800 ####[facility] [address] [place], [address] pH (Bld) 7.35 [pH] Normal 7.35-7.45 [facility] Comment on above: Performed By: #### L 9000.0800 ####[facility] [address] [place], [address] PO2 37 mmHG Invalid Interpretation Code 75-100 [facility] Comment on above: Performed By: #### L 0.0800 ####[facility] [address] [place], [address] Read Back By Yes Normal [facility] Comment on above: Performed By: #### L 0.0800 ####[facility] [address] [place], [address] RR 14 Normal [facility] Comment on above: Performed By: #### L 0.0800 ####[facility] [address] [place], [address] SITE R Radial Normal [facility] Comment on above: Performed By: #### L 0.0800 ####[facility] [address] [place], [address] SO2 66 Low 95-99 [facility] Comment on above: Performed By: #### L 8999.0800 ####[facility] [address] [place], [address] Vt 500.0 mL Normal [facility] Comment on above: Performed By: #### L 0.0800 ####[facility] [address] [place], [address] BARON TEST Positive Normal [facility] Comment on above: Performed By: #### L 9000.0800 ####[facility] [facility] [address] [place], [address] Base excess Calc (Bld) [Moles/Vol] 5 mmol/L High -2 to +2 [facility] Comment on above: Performed By: #### L 9000.0800 ####[facility] [address] [place], [address] Blood Gas Type ART Normal [facility] Comment on above: Performed By: #### L 8999.0800 ####[facility] [address] [place], [address] CO2 [Moles/Vol] 34 mmol/L Normal [facility] Comment on above: Performed By: #### L 8999.0800 ####[facility] [address] [place], [address] Comment Normal [facility] Comment on above: Result Comment: AVAP S 500vt 14rr 100% +8 maxP=26 minP=18 Performed By: #### L 0.0800 ####[facility] [address] [place], [address] FI02 100.0 Normal [facility] Comment on above: Performed By: #### L 0.0800 ####[facility] [address] [place], [address] HCO3 (Bld) [Moles/Vol] 31.6 mmol/L High 22-26 [facility] Comment on above: Performed By: #### L 8999.0800 ####[facility] [address] [place], [address] Mode Not entered Normal [facility] Comment on above: Performed By: #### L 0.0800 ####[facility] [address] [place], [address] O2 Delivery Dev BiPAP Normal [facility] Comment on above: Performed By: #### L 8999.0800 ####[facility] [address] [place], [address] pCO2 63.0 mmHg High 35-45 [facility] Comment on above: Performed By: #### L 0.0800 ####[facility] [address] [place], [address] pH (Bld) 7.31 [pH] Low 7.35-7.45 [facility] Comment on above: Performed By: #### L 9000.0800 ####[facility] [address] [place], [address] PO2 83 mmHG Normal 75-100 [facility] Comment on above: Performed By: #### L 9000.0800 ####[facility] [address] [place], [address] SITE R Radial Normal [facility] Comment on above: Performed By: #### L 9000.0800 ####[facility] [address] [place], [address] SO2 95 Normal 95-99 [facility] Comment on above: Performed By: #### L 9000.0800 ####[facility] [address] [place], [address] Blood base excess determinat ionOrdered By: Lucio Borden on 01-20-2025 Base excess Calc (BldV) [Moles/Vol] 10 mmol/L High --2 [facility] Blood bicarbonate measuremen tOrdered By: Lucio Borden on 01-20-2025 HCO3 (Bld) [Moles/Vol] 35.5 mmol/L High 22-26 [facility] Blood cultureOrdered By: Mikey Marie on 01-20-2025 Bacteria identified Cx Nom (Bld) No growth in 5 days. [facility] Blood cultureOrdered By: Maeve Yoder on 01-20-2025 Bacteria identified Cx Nom (Bld) No growth in 5 days. [facility] Bacteria identified Cx Nom (Bld) No growth in 5 days. [facility] CBC W/Diff, Automatedon 12-30 Absolute Lymph 4.62 X10 3/uL High 0.83-4.51 [facility] Comment on above: Performed By: #### L 300.4310, L100.0100, L300.3900, L501.4021, L503.6005, L500.4050, M200.1000 ####[facility] [address] [place], [address] Absolute Neut 8.4 X10 3/uL High 2.0-7.7 [facility] Comment on above: Performed By: #### L 300.4310, L100.0100, L300.3900, L501.4021, L503.6005, L500.4050, M200.1000 ####[facility] [address] [place], [address] Basophils/100 WBC (Bld) 0.6 % Normal 0-1 [facility] Comment on above: Performed By: #### L 300.4310, L100.0100, L300.3900, L501.4021, L503.6005, L500.4050, M200.1000 ####[facility] [address] [place], [address] Eosinophils/100 WBC (Bld) 0.8 % Normal 0-5 [facility] Comment on above: Performed By: #### L 300.4310, L100.0100, L300.3900, L501.4021, L503.6005, L500.4050, M200.1000 ####[facility] [address] [place], [address] Erythrocyte distribution width (RBC) [Ratio] 16.0 % High 11.6-14.6 [facility] Comment on above: Performed By: #### L 300.4310, L100.0100, L300.3900, L501.4021, L503.6005, L500.4050, M200.1000 ####[facility] [address] [place], [address] Hematocrit (Bld) [Volume fraction] 39.6 % Normal 37-47 [facility] Comment on above: Performed By: #### L 300.4310, L100.0100, L300.3900, L501.4021, L503.6005, L500.4050, M200.1000 ####[facility] [address] [place], [address] Hemoglobin (Bld) [Mass/Vol] 12.1 g/dL Normal 12.0-15.0 [facility] Comment on above: Performed By: #### L 300.4310, L100.0100, L300.3900, L501.4021, L503.6005, L500.4050, M200.1000 ####[facility] [address] [facility] [place], [address] IG% 0.500 Normal 0.0-0.9 [facility] Comment on above: Result Comment: IG% - Immature Granulocytes (promyelocytes, myelocytes andmetamyelocytes) > 1% indicates that a LEFT SHIFT is Present. Performed By: #### L 300.4310, L100.0100, L300.3900, L501.4021, L503.6005, L500.4050, M200.1000 ####[facility] [address] [facility] [place], [address] Lymphocytes/100 WBC (Bld) 32.0 % Normal 19-41 [facility] Comment on above: Performed By: #### L 300.4310, L100.0100, L300.3900, L501.4021, L503.6005, L500.4050, M200.1000 ####[facility] [address] [place], [address] MCH (RBC) [Entitic mass] 27.4 pg Normal 27.0-32.0 [facility] Comment on above: Performed By: #### L 300.4310, L100.0100, L300.3900, L501.4021, L503.6005, L500.4050, M200.1000 ####[facility] [address] [place], [address] MCHC (RBC) [Mass/Vol] 30.6 g/dL Low 32-36 [facility] Comment on above: Performed By: #### L 300.4310, L100.0100, L300.3900, L501.4021, L503.6005, L500.4050, M200.1000 ####[facility] [address] [place], [address] MCV (RBC) [Entitic vol] 89.8 fL Normal 81-99 [facility] Comment on above: Performed By: #### L 300.4310, L100.0100, L300.3900, L501.4021, L503.6005, L500.4050, M200.1000 ####[facility] [address] [place], [address] Monocytes/100 WBC (Bld) 7.7 % Normal 0-10 [facility] Comment on above: Performed By: #### L 300.4310, L100.0100, L300.3900, L501.4021, L503.6005, L500.4050, M200.1000 ####[facility] [address] [place], [address] Neutrophils/100 WBC (Bld) 58.4 % Normal 47-70 [facility] Comment on above: Performed By: #### L 300.4310, L100.0100, L300.3900, L501.4021, L503.6005, L500.4050, M200.1000 ####[facility] [address] [place], [address] Nucleated RBC (Bld) [#/Vol] 0 10*3/uL Normal 0-5 [facility] Comment on above: Performed By: #### L 300.4310, L100.0100, L300.3900, L501.4021, L503.6005, L500.4050, M200.1000 ####[facility] [address] [place], [address] Platelet mean volume (Bld) [Entitic vol] 12.0 fL Normal 6.2-12.0 [facility] Comment on above: Performed By: #### L 300.4310, L100.0100, L300.3900, L501.4021, L503.6005, L500.4050, M200.1000 ####[facility] [address] [place], [address] Platelets (Bld) [#/Vol] 287 10*3/uL Normal 150-450 [facility] Comment on above: Performed By: #### L 300.4310, L100.0100, L300.3900, L501.4021, L503.6005, L500.4050, M200.1000 ####[facility] [address] [place], [address] RBC (Bld) [#/Vol] 4.41 10*6/uL Normal 4.2-5.4 [facility] Comment on above: Performed By: #### L 300.4310, L100.0100, L300.3900, L501.4021, L503.6005, L500.4050, M200.1000 ####[facility] [address] [place], [address] RDW SD 52.7 fl High 35.1-43.9 [facility] Comment on above: Performed By: #### L 300.4310, L100.0100, L300.3900, L501.4021, L503.6005, L500.4050, M200.1000 ####[facility] [address] [place], [address] WBC (Bld) [#/Vol] 14.4 10*3/uL High 4.4-11.0 [facility] Comment on above: Performed By: #### L 300.4310, L100.0100, L300.3900, L501.4021, L503.6005, L500.4050, M200.1000 ####[facility] [address] [place], [address] CTA Chest W/WO Contraston CTA Chest W/WO Contrast Normal [facility] Calculated very low density lipoprotein (VLDL) cholesterol measurementOrdered By: Sandeep Marie on 01-20-2025 Calculated very low density lipoprotein (VLDL) cholesterol measurement 12 mg/dL 5-40 [facility] Comprehensive Metabolic Prof ilon 01-20-2025 Albumin [Mass/Vol] 3.6 g/dL Normal 3.4-4.8 [facility] Comment on above: Performed By: #### L 300.4310, L100.0100, L300.3900, L501.4021, L503.6005, L500.4050, M200.1000 ####[facility] [address] [place], [place], [address] Albumin/Globulin [Mass ratio] 0.9 {ratio} Normal 0.9-2.4 [facility] Comment on above: Performed By: #### L 300.4310, L100.0100, L300.3900, L501.4021, L503.6005, L500.4050, M200.1000 ####[facility] [address] [place], [address] ALK PHOS 143 U/L High 35-104 [facility] Comment on above: Performed By: #### L 300.4310, L100.0100, L300.3900, L501.4021, L503.6005, L500.4050, M200.1000 ####[facility] [address] [place], [address] ALT [Catalytic activity/Vol] 36 U/L High <=34 [facility] Comment on above: Performed By: #### L 300.4310, L100.0100, L300.3900, L501.4021, L503.6005, L500.4050, M200.1000 ####[facility] [address] [place], [address] AST [Catalytic activity/Vol] 81 U/L High <=31 [facility] Comment on above: Result Comment: Hemo lysis present, Results??could be affected.?? Performed By: #### L 300.4310, L100.0100, L300.3900, L501.4021, L503.6005, L500.4050, M200.1000 ####[facility] [address] [place], [address] Bilirubin [Mass/Vol] 0.26 mg/dL Normal 0.00-1.30 [facility] Comment on above: Performed By: #### L 300.4310, L100.0100, L300.3900, L501.4021, L503.6005, L500.4050, M200.1000 ####[facility] [address] [place], [address] BUN/CRE 8.1 RATIO Low 10-20 [facility] Comment on above: Performed By: #### L 300.4310, L100.0100, L300.3900, L501.4021, L503.6005, L500.4050, M200.1000 ####[facility] [address] [place], [address] Calcium [Mass/Vol] 10.2 mg/dL Normal 7.6-11.0 [facility] Comment on above: Performed By: #### L 300.4310, L100.0100, L300.3900, L501.4021, L503.6005, L500.4050, M200.1000 ####[facility] [address] [place], [address] Chloride [Moles/Vol] 97 mmol/L Low 98-108 [facility] Comment on above: Performed By: #### L 300.4310, L100.0100, L300.3900, L501.4021, L503.6005, L500.4050, M200.1000 ####[facility] [address] [place], [address] CO2 [Moles/Vol] 25.7 mmol/L Normal 21.0-32.0 [facility] Comment on above: Performed By: #### L 300.4310, L100.0100, L300.3900, L501.4021, L503.6005, L500.4050, M200.1000 ####[facility] [address] [place], [address] Creatinine [Mass/Vol] 1.24 mg/dL High 0.70-1.20 [facility] Comment on above: Performed By: #### L 300.4310, L100.0100, L300.3900, L501.4021, L503.6005, L500.4050, M200.1000 ####[facility] [address] [place], [address] ECRCL 34.84 ml/min Low 50-250 [facility] Comment on above: Performed By: #### L 300.4310, L100.0100, L300.3900, L501.4021, L503.6005, L500.4050, M200.1000 ####[facility] [address] [place], [address] GAP 15 Normal 5-15 [facility] Comment on above: Performed By: #### L 300.4310, L100.0100, L300.3900, L501.4021, L503.6005, L500.4050, M200.1000 ####[facility] [address] [place], [address] GFR/1.73 sq M.predicted among non-blacks MDRD (S/P/Bld) [Vol rate/Area] 44 mL/min/{1.73_m2} Low >60 [facility] Comment on above: Result Comment: mL/m in/1.73m2 CKD-EPI Creatinine Equation (2020) Performed By: #### L 300.4310, L100.0100, L300.3900, L501.4021, L503.6005, L500.4050, M200.1000 ####[facility] [address] [place], [address] Globulin (S) [Mass/Vol] 4.1 g/dL Normal 2.2-4.2 [facility] Comment on above: Performed By: #### L 300.4310, L100.0100, L300.3900, L501.4021, L503.6005, L500.4050, M200.1000 ####[facility] [address] [place], [address] Glucose [Mass/Vol] 347 mg/dL High 70-99 [facility] Comment on above: Performed By: #### L 300.4310, L100.0100, L300.3900, L501.4021, L503.6005, L500.4050, M200.1000 ####[facility] [address] [place], [address] Potassium [Moles/Vol] 4.0 mmol/L Normal 3.3-5.1 [facility] Comment on above: Result Comment: Hemo lysis present, Results??could be affected.?? Performed By: #### L 300.4310, L100.0100, L300.3900, L501.4021, L503.6005, L500.4050, M200.1000 ####[facility] [address] [place], [address] Sodium [Moles/Vol] 137 mmol/L Normal 133-145 [facility] Comment on above: Performed By: #### L 300.4310, L100.0100, L300.3900, L501.4021, L503.6005, L500.4050, M200.1000 ####[facility] [address] [place], [address] T PROT 7.6 g/dL Normal 5.9-8.4 [facility] Comment on above: Performed By: #### L 300.4310, L100.0100, L300.3900, L501.4021, L503.6005, L500.4050, M200.1000 ####[facility] [address] [place], [address] Urea nitrogen [Mass/Vol] 10 mg/dL Normal 4-19 [facility] Comment on above: Performed By: #### L 300.4310, L100.0100, L300.3900, L501.4021, L503.6005, L500.4050, M200.1000 ####[facility] [address] [place], [address] Echo Completeon 01-20-2025 Echo Complete Normal [facility] Echocardiogram study reportO rdered By: Marcelina Soto on 01-20-2025 Study report [facility] Work Phone: Emergency Department Summary on 01-20-2025 Emergency Department Summary Normal [facility] H AND P Exam - Hospitaliston 01-20-2025 H&P Exam - Hospitalist Normal [facility] Hemoglobin A1con 01-20-2025 HbA1c (Bld) [Mass fraction] 10.6 % High <=5.6 [facility] Comment on above: Result Comment: Norm al < 5.7 % Prediabetic 5.7 - 6.4 % Diabetic >or= 6.5 % Please note range changes. Performed By: #### L 501.9985 ####[facility] [address] [place], [address] Hemoglobin A1c percentageOrd ered By: Sandeep Marie on 01-20-2025 HbA1c (Bld) [Mass fraction] 10.6 % High <5.7 [facility] Ketones Test strip Ql (U)Ord ered By: Jeevan Yoder on 01-20-2025 Ketones Ql (U) Negative Negative [facility] L499.0042on 01-20-2025 Trop T High Sen 71 ng/L Invalid Interpretation Code <=14 [facility] Comment on above: Result Comment: Crit ical Result(s) Called at:0237 by: EMA PATEL.??Results read back by same. Performed By: #### L 499.0042 ####[facility] [address] [place], [address] L499.0043on 01-20-2025 Trop T High Sen 94 ng/L Invalid Interpretation Code <=14 [facility] Comment on above: Order Comment: PT SUAREZ S NOT MADE IT TO ROOM YET FROM ER OF 409 Result Comment: Crit ical Result(s) Called at 0548: by: SHARONA ALVAREZ. ??Results read back by same. Performed By: #### L 499.0043 ####[facility] [address] [place], [address] L501.4021on 01-20-2025 Trop T High Sen 52 ng/L High <=14 [facility] Comment on above: Performed By: #### L 300.4310, L100.0100, L300.3900, L501.4021, L503.6005, L500.4050, M200.1000 ####[facility] [address] [place], [address] L503.7505on 01-20-2025 Natriuretic peptide B (Bld) [Mass/Vol] 9449 pg/mL High <=1800 [facility] Comment on above: Result Comment: Hear t Failure Unlikely: < 300 pg/mLHeart Failure Likely< 50 Years: > 450 pg/mL50-75 Years: > 900 pg/mL>75 Years: > 1800 pg/mL Performed By: #### L 501.9520, L503.7505, L500.4100 ####[facility] [address] [place], [address] LDL calc ser/plasOrdered By: Sandeep Marie on 01-20-2025 Cholesterol in LDL [Mass/Vol] 79 mg/dL [facility] Lactic Acidon 01-20-2025 Lactate [Moles/Vol] 1.7 mmol/L Normal 0.0-2.0 [facility] Comment on above: Performed By: #### L 503.6005 ####[facility] [address] [place], [address] Lactate [Moles/Vol] 2.0 mmol/L Normal 0.0-2.0 [facility] Comment on above: Order Comment: Comme nts: if result >2, system reflex orders 2nd test @ 4hrsY Result Comment: Crit ical Result(s) Called at 0615: by: SHARONA ALVAREZ. ??Results read back by same. Performed By: #### M 200.1000, L503.6005 ####[facility] [address] [place], [address] Lactate [Moles/Vol] 3.4 mmol/L Invalid Interpretation Code 0.0-2.0 [facility] Comment on above: Order Comment: Y Result Comment: Crit ical Result(s) Called at: 0116 by: EMA BOWEN TO [facility].??Results read back by same. Performed By: #### L 300.4310, L100.0100, L300.3900, L501.4021, L503.6005, L500.4050, M200.1000 ####[facility] [address] [place], [address] Legionella Antigen Urineon 0 01-20-2025 LEGU Normal [facility] Comment on above: Performed By: #### M 300.0420, M300.4500 ####[facility] [address] [place], [address] Lipid Profileon 01-20-2025 CHOL:HDL 2.89 Normal [facility] Comment on above: Performed By: #### L 501.9520, L503.7505, L500.4100 ####[facility] [address] [place], [address] Cholesterol [Mass/Vol] 140 mg/dL Normal <=200 [facility] Comment on above: Result Comment: Chol esterol level, Desirable <200 mg/dLBorderline high cholesterol 200-239 mg/dLHigh cholesterol >=240 mg/dLRecommendations of the NCEP Adult Treatment Panel for thefollowing risk-cutoff thresholds for the [place] [facility]. Performed By: #### L 501.9520, L503.7505, L500.4100 ####[facility] [address] [place], [address] Cholesterol in HDL [Mass/Vol] 49 mg/dL Normal [facility] Comment on above: Result Comment: Camelia onal Cholesterol Education Program (NCEP) guidelines:<40 mg/dL: Low HDL-cholesterol (major risk factor for CHD)>= 60 mg/dL: High HDL-cholesterol (negative risk factor forCHD)HDL-cholesterol is affected by a number of factors, e.g.smoking, exercise, hormones, sex and age. Performed By: #### L 501.9520, L503.7505, L500.4100 ####[facility] [address] [place], [address] Cholesterol in LDL [Mass/Vol] 79 mg/dL Normal [facility] Comment on above: Result Comment: Bord umqgpy=492-592 mg/dL Higher Trcx=977 mg/dL or greater Performed By: #### L 501.9520, L503.7505, L500.4100 ####[facility] [address] [place], [address] Cholesterol in VLDL [Mass/Vol] 12 mg/dL Normal 5-40 [facility] Comment on above: Performed By: #### L 501.9520, L503.7505, L500.4100 ####[facility] [address] [place], [address] Triglyceride [Mass/Vol] 62 mg/dL Normal [facility] Comment on above: Result Comment: The drugs N-Acetylcysteine and Metamizole may falselydepress this assay.Normal range: <150 mg/dLBorderline High: 150-199 mg/dLHigh: 200-499 mg/dLVery High: >500 mg/dL Performed By: #### L 501.9520, L503.7505, L500.4100 ####[facility] [address] [place], [address] Measurement, pHOrdered By: Connor Borden on 01-20-2025 pH (Unsp spec) 7.38 [pH] 7.35-7.45 [facility] Mucus LM Ql (Urine sed)Order ed By: Jeevan Yoder on 01-20-2025 Mucus Ql (Urine sed) 0 SEEN /hpf [facility] Nitrite Test strip Ql (U)Ord ered By: Jeevan Yoder on 01-20-2025 Nitrite Ql (U) Negative Negative [facility] No Panel InformationOrdered By: Lucio Borden on 01-20-2025 ART [facility] R Radial [facility] ST [facility] BiPAP [facility] 500.0 mL [facility] 14 [facility] 8 [facility] 16:55:40 [facility] Yes [facility] No Panel InformationOrdered By: Jeevan Yoder on 01-20-2025 See comment [facility] 81 U/L High <32 [facility] Partial Thromboplast Timeon 01-20-2025 aPTT Coag (Bld) [Time] 26.9 s Normal 24.1-36.2 [facility] Comment on above: Performed By: #### L 300.4310, L100.0100, L300.3900, L501.4021, L503.6005, L500.4050, M200.1000 ####[facility] [address] [place], [address] Protein Test strip Ql (U)Ord ered By: Jeevan Yoder on 01-20-2025 Protein Ql (U) 100 mg/dl High Negative [facility] Prothrombin Time w/INRon INR Coag (PPP) [Relative time] 1.1 {INR} Normal [facility] Comment on above: Performed By: #### L 300.4310, L100.0100, L300.3900, L501.4021, L503.6005, L500.4050, M200.1000 ####[facility] [address] [place], [address] PT Coag (PPP) [Time] 14.6 s Normal 11.7-14.9 [facility] Comment on above: Performed By: #### L 300.4310, L100.0100, L300.3900, L501.4021, L503.6005, L500.4050, M200.1000 ####[facility] [address] [place], [address] Prothrombin timeOrdered By: Jeevan Yoder on 01-20-2025 PT Coag (PPP) [Time] 14.6 s 11.7-14.9 [facility] RESPIRATORY PANEL MOLECULARo n 01-20-2025 RP PANEL Normal [facility] Comment on above: Performed By: #### M 100.638 ####[facility] [address] [place], [place], [address] Respiratory pathogens detect ion panel by molecular detection methodOrdered By: Sandeep Marie on 01-20-2025 Respiratory pathogens DNA and RNA panel BEBETO+probe (Resp) [facility] Serum globulin measurementOr dered By: Jeevan Yoder on 01-20-2025 Globulin (S) [Mass/Vol] 4.1 g/dL 2.2-4.2 [facility] Serum or plasma alanine kelley otransferase (ALT) measurementOrdered By: Jeevan Yoder on 01-20-2025 ALT [Catalytic activity/Vol] 36 U/L High <35 [facility] Serum or plasma albumin melanie urement (mass/volume)Ordered By: Jeevan Yoder on 01-20-2025 Albumin [Mass/Vol] 3.6 g/dL 3.4-4.8 [facility] Serum or plasma albumin/glob ulin mass ratioOrdered By: Jeevan Yoder on 01-20-2025 Albumin/Globulin [Mass ratio] 0.9 {ratio} 0.9-2.4 [facility] Serum or plasma alkaline lissa sphatase measurementOrdered By: Jeevan Yoder on 01-20-2025 ALP [Catalytic activity/Vol] 143 U/L High 35-104 [facility] Serum or plasma cholesterol in HDL measurement (mass/volume)Ordered By: Sandeep Marie on 01-20-2025 Cholesterol in HDL [Mass/Vol] 49 mg/dL >40 [facility] Serum or plasma cholesterol measurement (mass/volume)Ordered By: Sandeep Marie on 01-20-2025 Cholesterol [Mass/Vol] 140 mg/dL <201 [facility] Squamous epithelial cells de tection in urine sediment by light microscopyOrdered By: Jeevan Yoder on 01-20-2025 Epithelial cells.squamous LM Ql (Urine sed) 5-10 SEEN /hpf 5-10 [facility] Strep pneumoniae Antig(UR,CS F)on 01-20-2025 STPAG Normal [facility] Comment on above: Performed By: #### M 300.7474, M300.6850 ####[facility] [address] [place], [address] TSH DL <= 0.005 mIU/L QnOrde red By: Sandeep Marie on 05-23-2025 TSH Qn 0.492 uIU/mL 0.300-4.200 [facility] Thyroid Stim Hormone (TSH)on 01-20-2025 TSH 0.492 uIU/mL Normal 0.300-4.200 [facility] Comment on above: Performed By: #### L 501.9520, L503.7505, L500.4100 ####[facility] [address] [place], [place], [id number] Total carbon dioxide measure mentOrdered By: Lucio Borden on 01-20-2025 CO2 [Moles/Vol] 37 mmol/L [facility] Total proteinOrdered By: Maeve Yoder on 01-20-2025 Protein [Mass/Vol] 7.6 g/dL 5.9-8.4 [facility] Troponin T.cardiac [Mass/vol ume] in Serum or Plasma by High sensitivity methodOrdered By: Jeevan Yoder on 01-20-2025 Troponin T.cardiac High sensitivity method [Mass/Vol] 94 ng/L High <14 [facility] Troponin T.cardiac High sensitivity method [Mass/Vol] 71 ng/L High <14 [facility] Troponin T.cardiac High sensitivity method [Mass/Vol] 52 ng/L High <14 [facility] Urinalysis, Completeon 01-20 EPI,SQUAMOUS 5-10 SEEN Normal 5-10 [facility] Comment on above: Order Comment: COLLE CTOR TO SPECIFY Performed By: #### L 400.0001 ####[facility] [address] [place], [address] RBC 5-10 SEEN Normal 0-5 [facility] Comment on above: Order Comment: COLLE CTOR TO SPECIFY Performed By: #### L 400.0001 ####[facility] [address] [place], [address] WBC 0-5 SEEN Normal 0-5 [facility] Comment on above: Order Comment: COLLE CTOR TO SPECIFY Performed By: #### L 400.0001 ####[facility] [address] [place], [address] BACTERIA 0 SEEN Normal None Seen [facility] Comment on above: Order Comment: MARSHALL CTOR TO SPECIFY Performed By: #### L 400.0001 ####[facility] [address] [place], [place], [id number] Mucus Ql (Urine sed) 0 SEEN Normal [facility] Comment on above: Order Comment: MARSHALL CTOR TO SPECIFY Performed By: #### L 400.0001 ####[facility] [address] [place], [place], [id number] Urine Legionella pneumophila antigen detectionOrdered By: Sandeep Marie on 01-20-2025 L. pneumophila Ag Ql (U) [facility] Urine clarityOrdered By: Maeve Yoder on 01-20-2025 Clarity (U) Clear Clear [facility] Urine color determinationOrd ered By: Jeevan Yoder on 01-20-2025 Color (U) Straw Yellow [facility] Urine cultureOrdered By: Maeve Yoder on 01-20-2025 Bacteria identified Cx Nom (U) Proteus mirabilis Abnormal [facility] Urine glucose detectionOrder ed By: Jeevan Yoder on 01-20-2025 Glucose Ql (U) 1000 mg/dl High Normal [facility] Urine leukocyte esterase det ection by dipstickOrdered By: Jeevan Yoder on 01-20-2025 Leukocyte esterase Test strip Ql (U) Negative Negative [facility] Urine pHOrdered By: Jeevan rai on 01-20-2025 pH (U) 6.0 [pH] 5.0 - 8.0 [facility] Urine sediment bacteria coun t by microscopy (number/high power field)Ordered By: Jeevan Yoder on 01-20-2025 Bacteria LM.HPF (Urine sed) [#/Area] 0 /[HPF] None Seen [facility] Urine specific gravity measu rementOrdered By: Jeevan Yoder on 01-20-2025 Specific gravity (U) [Rel density] 1.010 1.002-1.030 [facility] Urine urobilinogen measureme ntOrdered By: Jeevan Yoder on 01-20-2025 Urobilinogen Ql (U) Normal mg/dl Normal [facility] White blood cell countOrdere d By: Jeevan Yoder on 01-20-2025 White blood cell count 0-5 SEEN /hpf 0-5 [facility] Anion gap in Serum or Plasma Ordered By: Ramone Smiley on 01-19-2025 Anion gap [Moles/Vol] 14 mmol/L 5-15 [facility] BUN/creatinine ratioOrdered By: Ramone Smiley on 01-19-2025 Urea nitrogen/Creatinine [Mass ratio] 7.7 mg/mg Low 10-20 [facility] Bilirubin, totalOrdered By: Ramone Smiley on 01-19-2025 Bilirubin [Mass/Vol] 0.25 mg/dL 0.00-1.30 [facility] CBC-Complete Blood Cnt No Di ffon 01-19-2025 Erythrocyte distribution width (RBC) [Ratio] 16.0 % High 11.6-14.6 [facility] Comment on above: Order Comment: Order Date: 01/19/25Order Info: [id number] - CBC Performed By: #### L 500.4050, L501.5200, L100.0500 ####[facility] [address] [place], [address] Hematocrit (Bld) [Volume fraction] 35.3 % Low 37-47 [facility] Comment on above: Order Comment: Order Date: 01/19/25Order Info: [id number] - CBC Performed By: #### L 500.4050, L501.5200, L100.0500 ####[facility] [address] [place], [address] Hemoglobin (Bld) [Mass/Vol] 10.9 g/dL Low 12.0-15.0 [facility] Comment on above: Order Comment: Order Date: 01/19/25Order Info: [id number] - CBC Performed By: #### L 500.4050, L501.5200, L100.0500 ####[facility] [address] [place], [address] MCH (RBC) [Entitic mass] 27.7 pg Normal 27.0-32.0 [facility] Comment on above: Order Comment: Order Date: 01/19/25Order Info: [id number] - CBC Performed By: #### L 500.4050, L501.5200, L100.0500 ####[facility] [address] [place], [address] MCHC (RBC) [Mass/Vol] 30.9 g/dL Low 32-36 [facility] Comment on above: Order Comment: Order Date: 01/19/25Order Info: [id number] - CBC Performed By: #### L 500.4050, L501.5200, L100.0500 ####[facility] [address] [place], [address] MCV (RBC) [Entitic vol] 89.6 fL Normal 81-99 [facility] Comment on above: Order Comment: Order Date: 01/19/25Order Info: [id number] - CBC Performed By: #### L 500.4050, L501.5200, L100.0500 ####[facility] [address] [place], [address] Platelet mean volume (Bld) [Entitic vol] 11.6 fL Normal 6.2-12.0 [facility] Comment on above: Order Comment: Order Date: 01/19/25Order Info: [id number] - CBC Performed By: #### L 500.4050, L501.5200, L100.0500 ####[facility] [address] [place], [address] Platelets (Bld) [#/Vol] 253 10*3/uL Normal 150-450 [facility] Comment on above: Order Comment: Order Date: 01/19/25Order Info: [id number] - CBC Performed By: #### L 500.4050, L501.5200, L100.0500 ####[facility] [address] [place], [address] RBC (Bld) [#/Vol] 3.94 10*6/uL Low 4.2-5.4 [facility] Comment on above: Order Comment: Order Date: 01/19/25Order Info: [id number] - CBC Performed By: #### L 500.4050, L501.5200, L100.0500 ####[facility] [address] [place], [address] RDW SD 52.7 fl High 35.1-43.9 [facility] Comment on above: Order Comment: Order Date: 01/19/25Order Info: [id number] - CBC Performed By: #### L 500.4050, L501.5200, L100.0500 ####[facility] [address] [place], [address] WBC (Bld) [#/Vol] 8.3 10*3/uL Normal 4.4-11.0 [facility] Comment on above: Order Comment: Order Date: 01/19/25Order Info: [id number] - CBC Performed By: #### L 500.4050, L501.5200, L100.0500 ####[facility] [address] [place], [address] Carbon dioxide, total [Moles /volume] in Central venous bloodOrdered By: Ramone Smiley on 01-19-2025 CO2 [Moles/Vol] 27.2 mmol/L 21.0-32.0 [facility] Chloride assayOrdered By: Richar Smiley on 01-19-2025 Chloride [Moles/Vol] 96 mmol/L Low 98-108 [facility] Comprehensive Metabolic Prof ilon 01-19-2025 Albumin [Mass/Vol] 3.4 g/dL Normal 3.4-4.8 [facility] Comment on above: Order Comment: Order Date: 01/19/25Order Info: [id number] - CMPOrder Info: [id number] - MG Performed By: #### L 500.4050, L501.5200, L100.0500 ####[facility] [address] [place], [address] Albumin/Globulin [Mass ratio] 0.9 {ratio} Normal 0.9-2.4 [facility] Comment on above: Order Comment: Order Date: 01/19/25Order Info: [id number] - CMPOrder Info: [id number] - MG Performed By: #### L 500.4050, L501.5200, L100.0500 ####[facility] [address] [place], [address] ALK PHOS 123 U/L High 35-104 [facility] Comment on above: Order Comment: Order Date: 01/19/25Order Info: [id number] - CMPOrder Info: [id number] - MG Performed By: #### L 500.4050, L501.5200, L100.0500 ####[facility] [address] [place], [address] ALT [Catalytic activity/Vol] 18 U/L Normal <=34 [facility] Comment on above: Order Comment: Order Date: 01/19/25Order Info: [id number] - CMPOrder Info: [id number] - MG Performed By: #### L 500.4050, L501.5200, L100.0500 ####[facility] [address] [place], [address] AST [Catalytic activity/Vol] 25 U/L Normal <=31 [facility] Comment on above: Order Comment: Order Date: 01/19/25Order Info: [id number] - CMPOrder Info: [id number] - MG Performed By: #### L 500.4050, L501.5200, L100.0500 ####[facility] [address] [place], [address] Bilirubin [Mass/Vol] 0.25 mg/dL Normal 0.00-1.30 [facility] Comment on above: Order Comment: Order Date: 01/19/25Order Info: [id number] - CMPOrder Info: [id number] - MG Performed By: #### L 500.4050, L501.5200, L100.0500 ####[facility] [address] [place], [address] BUN/CRE 7.7 RATIO Low 10-20 [facility] Comment on above: Order Comment: Order Date: 01/19/25Order Info: [id number] - CMPOrder Info: [id number] - MG Performed By: #### L 500.4050, L501.5200, L100.0500 ####[facility] [address] [place], [address] Calcium [Mass/Vol] 10.4 mg/dL Normal 7.6-11.0 [facility] Comment on above: Order Comment: Order Date: 01/19/25Order Info: [id number] - CMPOrder Info: [id number] - MG Performed By: #### L 500.4050, L501.5200, L100.0500 ####[facility] [address] [place], [address] Chloride [Moles/Vol] 96 mmol/L Low 98-108 [facility] Comment on above: Order Comment: Order Date: 01/19/25Order Info: [id number] - CMPOrder Info: [id number] - MG Performed By: #### L 500.4050, L501.5200, L100.0500 ####[facility] [address] [place], [address] CO2 [Moles/Vol] 27.2 mmol/L Normal 21.0-32.0 [facility] Comment on above: Order Comment: Order Date: 01/19/25Order Info: [id number] - CMPOrder Info: [id number] - MG Performed By: #### L 500.4050, L501.5200, L100.0500 ####[facility] [address] [place], [address] Creatinine [Mass/Vol] 1.06 mg/dL Normal 0.70-1.20 [facility] Comment on above: Order Comment: Order Date: 01/19/25Order Info: [id number] - CMPOrder Info: [id number] - MG Performed By: #### L 500.4050, L501.5200, L100.0500 ####[facility] [address] [place], [address] GAP 14 Normal 5-15 [facility] Comment on above: Order Comment: Order Date: 01/19/25Order Info: [id number] - CMPOrder Info: [id number] - MG Performed By: #### L 500.4050, L501.5200, L100.0500 ####[facility] [address] [place], [address] GFR/1.73 sq M.predicted among non-blacks MDRD (S/P/Bld) [Vol rate/Area] 53 mL/min/{1.73_m2} Low >60 [facility] Comment on above: Order Comment: Order Date: 01/19/25Order Info: [id number] - CMPOrder Info: [id number] - MG Result Comment: mL/m in/1.73m2 CKD-EPI Creatinine Equation (2020) Performed By: #### L 500.4050, L501.5200, L100.0500 ####[facility] [address] [place], [address] Globulin (S) [Mass/Vol] 3.9 g/dL Normal 2.2-4.2 [facility] Comment on above: Order Comment: Order Date: 01/19/25Order Info: [id number] - CMPOrder Info: [id number] - MG Performed By: #### L 500.4050, L501.5200, L100.0500 ####[facility] [address] [place], [address] Glucose [Mass/Vol] 288 mg/dL High 70-99 [facility] Comment on above: Order Comment: Order Date: 01/19/25Order Info: [id number] - CMPOrder Info: [id number] - MG Performed By: #### L 500.4050, L501.5200, L100.0500 ####[facility] [address] [place], [address] Potassium [Moles/Vol] 3.3 mmol/L Normal 3.3-5.1 [facility] Comment on above: Order Comment: Order Date: 01/19/25Order Info: [id number] - CMPOrder Info: [id number] - MG Performed By: #### L 500.4050, L501.5200, L100.0500 ####[facility] [address] [place], [address] Sodium [Moles/Vol] 137 mmol/L Normal 133-145 [facility] Comment on above: Order Comment: Order Date: 01/19/25Order Info: [id number] - CMPOrder Info: [id number] - MG Performed By: #### L 500.4050, L501.5200, L100.0500 ####[facility] [address] [place], [address] T PROT 7.3 g/dL Normal 5.9-8.4 [facility] Comment on above: Order Comment: Order Date: 01/19/25Order Info: [id number] - CMPOrder Info: [id number] - MG Performed By: #### L 500.4050, L501.5200, L100.0500 ####[facility] [address] [place], [address] Urea nitrogen [Mass/Vol] 8 mg/dL Normal 4-19 [facility] Comment on above: Order Comment: Order Date: 01/19/25Order Info: [id number] - CMPOrder Info: [id number] - MG Performed By: #### L 500.4050, L501.5200, L100.0500 ####[facility] [address] [place], [address] Erythrocyte distribution wid th ratioOrdered By: Ramone Smiley on 01-19-2025 Erythrocyte distribution width (RBC) [Ratio] 16.0 % High 11.6-14.6 [facility] Erythrocyte distribution wid th standard deviationOrdered By: Ramone Smiley on 01-19-2025 Erythrocyte distribution width (RBC) [Ratio] 52.7 fl High 35.1-43.9 [facility] Glomerular filtration rate ( GFR) estimation/1.73 sq m using serum, plasma, or whole bOrdered By: Ramone Smiley on 01-19-2025 GFR/1.73 sq M.predicted among non-blacks MDRD (S/P/Bld) [Vol rate/Area] 53 mL/min/{1.73_m2} Low >60 [facility] Hematocrit Auto (Bld) [Volum e fraction]Ordered By: Ramone Smiley on 01-19-2025 Hematocrit (Bld) [Volume fraction] 35.3 % Low 37-47 [facility] Hemoglobin measurementOrdere d By: Ramone Smiley on 01-19-2025 Hemoglobin (Bld) [Mass/Vol] 10.9 g/dL Low 12.0-15.0 [facility] L503.7505on 01-19-2025 Natriuretic peptide B (Bld) [Mass/Vol] 3173 pg/mL High <=1800 [facility] Comment on above: Order Comment: Order Date: 01/19/25Order Info: [id number] - CMPOrder Info: [id number] - MG Result Comment: Hear t Failure Unlikely: < 300 pg/mLHeart Failure Likely< 50 Years: > 450 pg/mL50-75 Years: > 900 pg/mL>75 Years: > 1800 pg/mL Performed By: #### L 503.7505 ####[facility] [address] [place], [place], [id number] MCV (mean corpuscular volume ) determinationOrdered By: Ramone Smiley on 01-19-2025 MCV (RBC) [Entitic vol] 89.6 fL 81-99 [facility] Magnesiumon 01-19-2025 Magnesium [Mass/Vol] 2.3 mg/dL High 1.5-2.2 [facility] Comment on above: Order Comment: Order Date: 01/19/25Order Info: [id number] - CMPOrder Info: [id number] - MG Performed By: #### L 500.4050, L501.5200, L100.0500 ####[facility] [address] [place], [address] Magnesium measurement (mass/ volume)Ordered By: Raomne Smiley on 01-19-2025 Magnesium (Unsp spec) [Mass/Vol] 2.3 mg/dL High 1.5-2.2 [facility] Mean corpuscular hemoglobin (MCH) determinationOrdered By: Ramone Smiley on 01-19-2025 MCH (RBC) [Entitic mass] 27.7 pg 27.0-32.0 [facility] Natriuretic peptide.B prohor hayley N-Terminal [Mass/volume] in Serum or PlasmaOrdered By: Ramone Smiley on 01-19-2025 Natriuretic peptide.B prohormone N-Terminal [Mass/Vol] 3173 pg/mL High <1800 [facility] No Panel InformationOrdered By: Ramone Smiley on 01-19-2025 25 U/L <32 [facility] Platelet countOrdered By: Richar Smiley on 01-19-2025 Platelets (Bld) [#/Vol] 253 10*3/uL 150-450 [facility] Potassium measurement (mass/ volume)Ordered By: Ramone Smiley on 01-19-2025 Potassium (Unsp spec) [Mass/Vol] 3.3 mmol/L 3.3-5.1 [facility] RBC Auto (Bld) [#/Vol]Ordere d By: Ramone Smiley on 01-19-2025 RBC (Bld) [#/Vol] 3.94 10*6/uL Low 4.2-5.4 [facility] Serum creatinine measurement (mass/volume)Ordered By: Ramone Smiley on 01-19-2025 Creatinine [Mass/Vol] 1.06 mg/dL 0.70-1.20 [facility] Serum globulin measurementOr dered By: Ramone Smiley on 01-19-2025 Globulin (S) [Mass/Vol] 3.9 g/dL 2.2-4.2 [facility] Serum glucose measurement (m ass/volume)Ordered By: Ramone Smiley on 01-19-2025 Glucose [Mass/Vol] 288 mg/dL High 70-99 [facility] Serum or plasma alanine kelley otransferase (ALT) measurementOrdered By: Ramone Smiley on 01-19-2025 ALT [Catalytic activity/Vol] 18 U/L <35 [facility] Serum or plasma albumin melanie urement (mass/volume)Ordered By: Ramone Smiley on 01-19-2025 Albumin [Mass/Vol] 3.4 g/dL 3.4-4.8 [facility] Serum or plasma albumin/glob ulin mass ratioOrdered By: Ramone Smiley on 01-19-2025 Albumin/Globulin [Mass ratio] 0.9 {ratio} 0.9-2.4 [facility] Serum or plasma alkaline lissa sphatase measurementOrdered By: Ramone Smiley on 01-19-2025 ALP [Catalytic activity/Vol] 123 U/L High 35-104 [facility] Serum or plasma calcium melanie urement (mass/volume)Ordered By: Ramone Smiley on 01-19-2025 Calcium [Mass/Vol] 10.4 mg/dL 7.6-11.0 [facility] Serum or plasma urea nitroge n measurement (mass/volume)Ordered By: Ramone Smiley on 01-19-2025 Urea nitrogen [Mass/Vol] 8 mg/dL 4-19 [facility] Sodium levelOrdered By: Ramone Smiley on 01-19-2025 Sodium [Moles/Vol] 137 mmol/L 133-145 [facility] Total proteinOrdered By: Lilliam Smiley on 01-19-2025 Protein [Mass/Vol] 7.3 g/dL 5.9-8.4 [facility] White blood cell (WBC) count Ordered By: Ramone Smiley on 01-19-2025 WBC (Bld) [#/Vol] 8.3 10*3/uL 4.4-11.0 [facility] 12 Lead EKGon 01-15-2025 12 Lead EKG Normal [facility] Absolute lymphocyte countOrd ered By: Jeevan Yoder on 01-15-2025 Lymphocytes Auto (Unsp spec) [#/Vol] 1.92 10*3/uL 0.83-4.51 [facility] Absolute neutrophil countOrd ered By: Jeevan Yoder on 01-15-2025 Neutrophils (Bld) [#/Vol] 7.7 10*3/uL 2.0-7.7 [facility] Anion gap in Serum or Plasma Ordered By: Jeevan Yoder on 01-15-2025 Anion gap [Moles/Vol] 11 mmol/L 5-15 [facility] Automated lymphocyte count a s percentage of total leukocytesOrdered By: Jeevan Yoder on 01-15-2025 Lymphocytes/100 WBC Auto (Unsp spec) 18.1 % Low 19-41 [facility] BUN/creatinine ratioOrdered By: Jeevan Yoder on 01-15-2025 Urea nitrogen/Creatinine [Mass ratio] 16.6 mg/mg 10- [facility] Basic Metabolic Profile (BMP )on 01-15-2025 BUN/CRE 16.6 RATIO Normal - [facility] Comment on above: Performed By: #### L 501.4021, L500.2500, L100.0100 ####[facility] [address] [place], [address] Calcium [Mass/Vol] 9.6 mg/dL Normal 7.6-11.0 [facility] Comment on above: Performed By: #### L 501.4021, L500.2500, L100.0100 ####[facility] [address] [place], [address] Chloride [Moles/Vol] 102 mmol/L Normal 98-108 [facility] Comment on above: Performed By: #### L 501.4021, L500.2500, L100.0100 ####[facility] [address] [place], [address] CO2 [Moles/Vol] 25.0 mmol/L Normal 21.0-32.0 [facility] Comment on above: Performed By: #### L 501.4021, L500.2500, L100.0100 ####[facility] [address] [place], [address] Creatinine [Mass/Vol] 0.92 mg/dL Normal 0.70-1.20 [facility] Comment on above: Performed By: #### L 501.4021, L500.2500, L100.0100 ####[facility] [address] [place], [address] ECRCL 48.84 ml/min Low 50-250 [facility] Comment on above: Performed By: #### L 501.4021, L500.2500, L100.0100 ####[facility] [address] [place], [address] GAP 11 Normal 5-15 [facility] Comment on above: Performed By: #### L 501.4021, L500.2500, L100.0100 ####[facility] [address] [place], [address] GFR/1.73 sq M.predicted among non-blacks MDRD (S/P/Bld) [Vol rate/Area] 63 mL/min/{1.73_m2} Normal >60 [facility] Comment on above: Result Comment: mL/m in/1.73m2 CKD-EPI Creatinine Equation (2020) Performed By: #### L 501.4021, L500.2500, L100.0100 ####[facility] [address] [place], [address] Glucose [Mass/Vol] 144 mg/dL High 70-99 [facility] Comment on above: Performed By: #### L 501.4021, L500.2500, L100.0100 ####[facility] [address] [place], [address] Potassium [Moles/Vol] 3.7 mmol/L Normal 3.3-5.1 [facility] Comment on above: Performed By: #### L 501.4021, L500.2500, L100.0100 ####[facility] [address] [place], [address] Sodium [Moles/Vol] 138 mmol/L Normal 133-145 [facility] Comment on above: Performed By: #### L 501.4021, L500.2500, L100.0100 ####[facility] [address] [place], [address] Urea nitrogen [Mass/Vol] 15 mg/dL Normal 4-19 [facility] Comment on above: Performed By: #### L 501.4021, L500.2500, L100.0100 ####[facility] [address] [place], [address] Basophil percentageOrdered B y: Jeevan Yoder on 01-15-2025 Basophils/100 WBC (Bld) 0.3 % 0-1 [facility] CBC W/Diff, Automatedon 12-29 Absolute Lymph 1.92 X10 3/uL Normal 0.83-4.51 [facility] Comment on above: Performed By: #### L 501.4021, L500.2500, L100.0100 ####[facility] [address] [place], [address] Absolute Neut 7.7 X10 3/uL Normal 2.0-7.7 [facility] Comment on above: Performed By: #### L 501.4021, L500.2500, L100.0100 ####[facility] [address] [place], [address] Basophils/100 WBC (Bld) 0.3 % Normal 0-1 [facility] Comment on above: Performed By: #### L 501.4021, L500.2500, L100.0100 ####[facility] [address] [place], [address] Eosinophils/100 WBC (Bld) 1.6 % Normal 0-5 [facility] Comment on above: Performed By: #### L 501.4021, L500.2500, L100.0100 ####[facility] [address] [place], [address] Erythrocyte distribution width (RBC) [Ratio] 16.3 % High 11.6-14.6 [facility] Comment on above: Performed By: #### L 501.4021, L500.2500, L100.0100 ####[facility] [address] [place], [address] Hematocrit (Bld) [Volume fraction] 34.3 % Low 37-47 [facility] Comment on above: Performed By: #### L 501.4021, L500.2500, L100.0100 ####[facility] [address] [place], [address] Hemoglobin (Bld) [Mass/Vol] 11.0 g/dL Low 12.0-15.0 [facility] Comment on above: Performed By: #### L 501.4021, L500.2500, L100.0100 ####[facility] [address] [place], [address] IG% 0.400 Normal 0.0-0.9 [facility] Comment on above: Result Comment: IG% - Immature Granulocytes (promyelocytes, myelocytes andmetamyelocytes) > 1% indicates that a LEFT SHIFT is Present. Performed By: #### L 501.4021, L500.2500, L100.0100 ####[facility] [address] [place], [address] Lymphocytes/100 WBC (Bld) 18.1 % Low 19-41 [facility] Comment on above: Performed By: #### L 501.4021, L500.2500, L100.0100 ####[facility] [address] [place], [address] MCH (RBC) [Entitic mass] 27.8 pg Normal 27.0-32.0 [facility] Comment on above: Performed By: #### L 501.4021, L500.2500, L100.0100 ####[facility] [address] [place], [address] MCHC (RBC) [Mass/Vol] 32.1 g/dL Normal 32-36 [facility] Comment on above: Performed By: #### L 501.4021, L500.2500, L100.0100 ####[facility] [address] [place], [address] MCV (RBC) [Entitic vol] 86.6 fL Normal 81-99 [facility] Comment on above: Performed By: #### L 501.4021, L500.2500, L100.0100 ####[facility] [address] [place], [address] Monocytes/100 WBC (Bld) 6.9 % Normal 0-10 [facility] Comment on above: Performed By: #### L 501.4021, L500.2500, L100.0100 ####[facility] [address] [place], [address] Neutrophils/100 WBC (Bld) 72.7 % High 47-70 [facility] Comment on above: Performed By: #### L 501.4021, L500.2500, L100.0100 ####[facility] [address] [place], [address] Nucleated RBC (Bld) [#/Vol] 0 10*3/uL Normal 0-5 [facility] Comment on above: Performed By: #### L 501.4021, L500.2500, L100.0100 ####[facility] [address] [place], [address] Platelet mean volume (Bld) [Entitic vol] 10.5 fL Normal 6.2-12.0 [facility] Comment on above: Performed By: #### L 501.4021, L500.2500, L100.0100 ####[facility] [address] [place], [address] Platelets (Bld) [#/Vol] 256 10*3/uL Normal 150-450 [facility] Comment on above: Performed By: #### L 501.4021, L500.2500, L100.0100 ####[facility] [address] [place], [address] RBC (Bld) [#/Vol] 3.96 10*6/uL Low 4.2-5.4 [facility] Comment on above: Performed By: #### L 501.4021, L500.2500, L100.0100 ####[facility] [address] [place], [address] RDW SD 50.8 fl High 35.1-43.9 [facility] Comment on above: Performed By: #### L 501.4021, L500.2500, L100.0100 ####[facility] [address] [place], [address] WBC (Bld) [#/Vol] 10.6 10*3/uL Normal 4.4-11.0 [facility] Comment on above: Performed By: #### L 501.4021, L500.2500, L100.0100 ####[facility] [address] [place], [address] Carbon dioxide, total [Moles /volume] in Central venous bloodOrdered By: Jeevan Yoder on 01-15-2025 CO2 [Moles/Vol] 25.0 mmol/L 21.0-32.0 [facility] Chest PA and Lateralon 01-15 Chest PA and Lateral Normal [facility] Chloride assayOrdered By: Kenny Yoder on 01-15-2025 Chloride [Moles/Vol] 102 mmol/L 98-108 [facility] Emergency Department Summary on 01-15-2025 Emergency Department Summary Normal [facility] Eosinophil percentageOrdered By: Jeevan Yoder on 01-15-2025 Eosinophils/100 WBC (Bld) 1.6 % 0-5 [facility] Erythrocyte distribution wid th ratioOrdered By: Jeevan Yoder on 01-15-2025 Erythrocyte distribution width (RBC) [Ratio] 16.3 % High 11.6-14.6 [facility] Erythrocyte distribution wid th standard deviationOrdered By: Jeevan Yoder on 01-15-2025 Erythrocyte distribution width (RBC) [Ratio] 50.8 fl High 35.1-43.9 [facility] Glomerular filtration rate ( GFR) estimation/1.73 sq m using serum, plasma, or whole bOrdered By: Jeevan Yoder on 01-15-2025 GFR/1.73 sq M.predicted among non-blacks MDRD (S/P/Bld) [Vol rate/Area] 63 mL/min/{1.73_m2} >60 [facility] Comment on above: mL/min/1.73m2 CKD-EP I Creatinine Equation (2020) Hematocrit Auto (Bld) [Volum e fraction]Ordered By: Jeevan Yoder on 01-15-2025 Hematocrit (Bld) [Volume fraction] 34.3 % Low 37-47 [facility] Hemoglobin measurementOrdere d By: Jeevan Yoder on 01-15-2025 Hemoglobin (Bld) [Mass/Vol] 11.0 g/dL Low 12.0-15.0 [facility] Immature granulocytes/100 WB C Auto (Bld)Ordered By: Jeevan Yoder on 01-15-2025 Immature granulocytes/100 WBC (Bld) 0.400 % 0.0-0.9 [facility] Comment on above: IG% - Immature Granu locytes (promyelocytes, myelocytes and metamyelocytes) > 1% indicates that a LEFT SHIFT is Present. L499.0042on 01-15-2025 Trop T High Sen 46 ng/L High <=14 [facility] Comment on above: Performed By: #### L 499.0042 ####[facility] [address] [place], [address] L499.0043on 01-15-2025 Trop T High Sen Normal <=14 [facility] Comment on above: Result Comment: DEP ED Performed By: #### L 499.0043 ####[facility] [address] [place], [address] L501.4021on 01-15-2025 Trop T High Sen 46 ng/L High <=14 [facility] Comment on above: Performed By: #### L 501.4021, L500.2500, L100.0100 ####[facility] [address] [place], [address] L503.7505on 01-15-2025 Natriuretic peptide B (Bld) [Mass/Vol] 4224 pg/mL High <=1800 [facility] Comment on above: Result Comment: Hear t Failure Unlikely: < 300 pg/mLHeart Failure Likely< 50 Years: > 450 pg/mL50-75 Years: > 900 pg/mL>75 Years: > 1800 pg/mL Performed By: #### L 503.7505 ####[facility] [address] [place], [address] MCV (mean corpuscular volume ) determinationOrdered By: Jeevan Yoder on 01-15-2025 MCV (RBC) [Entitic vol] 86.6 fL 81-99 [facility] Mean corpuscular hemoglobin (MCH) determinationOrdered By: Jeevan Yoder on 01-15-2025 MCH (RBC) [Entitic mass] 27.8 pg 27.0-32.0 [facility] Mean corpuscular hemoglobin concentration (MCHC) determinationOrdered By: Jeevan Yoder on 01-15-2025 MCHC (RBC) [Mass/Vol] 32.1 g/dL 32-36 [facility] Mean platelet volume determi nationOrdered By: Jeevan Yoder on 01-15-2025 Platelet mean volume (Bld) [Entitic vol] 10.5 fL 6.2-12.0 [facility] Monocyte percentageOrdered B y: Jeevan Yoder on 01-15-2025 Monocytes/100 WBC (Bld) 6.9 % 0-10 [facility] Natriuretic peptide.B prohor hayley N-Terminal [Mass/volume] in Serum or PlasmaOrdered By: Jeevan Yoder on 01-15-2025 Natriuretic peptide.B prohormone N-Terminal [Mass/Vol] 4224 pg/mL High <1800 [facility] Comment on above: Heart Failure Unlike ly: < 300 pg/mLHeart Failure Likely< 50 Years: > 450 pg/mL50-75 Years: > 900 pg/mL>75 Years: > 1800 pg/mL Neutrophil percentageOrdered By: Jeevan Yoder on 01-15-2025 Neutrophils/100 WBC (Bld) 72.7 % High 47-70 [facility] Nucleated red blood cell per centageOrdered By: Jeevan Yoder on 01-15-2025 Nucleated RBC/100 WBC (Bld) [Ratio] 0 % 0-5 [facility] Platelet countOrdered By: Kenny Yoder on 01-15-2025 Platelets (Bld) [#/Vol] 256 10*3/uL 150-450 [facility] Potassium measurement (mass/ volume)Ordered By: Jeevan Yoder on 01-15-2025 Potassium (Unsp spec) [Mass/Vol] 3.7 mmol/L 3.3-5.1 [facility] RBC Auto (Bld) [#/Vol]Ordere d By: Jeevan Yoder on 01-15-2025 RBC (Bld) [#/Vol] 3.96 10*6/uL Low 4.2-5.4 [facility] Serum creatinine measurement (mass/volume)Ordered By: Jeevan Yoder on 01-15-2025 Creatinine [Mass/Vol] 0.92 mg/dL 0.70-1.20 [facility] Serum glucose measurement (m ass/volume)Ordered By: Jeevan Yoder on 01-15-2025 Glucose [Mass/Vol] 144 mg/dL High 70-99 [facility] Serum or plasma calcium melanie urement (mass/volume)Ordered By: Jeevan Yoder on 01-15-2025 Calcium [Mass/Vol] 9.6 mg/dL 7.6-11.0 [facility] Serum or plasma urea nitroge n measurement (mass/volume)Ordered By: eJevan Yoder on 01-15-2025 Urea nitrogen [Mass/Vol] 15 mg/dL 4-19 [facility] Sodium levelOrdered By: Marcelino Yoder on 01-15-2025 Sodium [Moles/Vol] 138 mmol/L 133-145 [facility] Troponin T.cardiac [Mass/vol ume] in Serum or Plasma by High sensitivity methodOrdered By: Jeevan Yoder on 01-15-2025 Troponin T.cardiac High sensitivity method [Mass/Vol] 46 ng/L High <14 [facility] Troponin T.cardiac High sensitivity method [Mass/Vol] 46 ng/L High <14 [facility] White blood cell (WBC) count Ordered By: Jeevan Yoder on 01-15-2025 WBC (Bld) [#/Vol] 10.6 10*3/uL 4.4-11.0 [facility] 12 Lead EKGon 01-07-2025 12 Lead EKG Normal [facility] Absolute lymphocyte countOrd ered By: Ethan Suarez on 01-07-2025 Lymphocytes Auto (Unsp spec) [#/Vol] 2.89 10*3/uL 0.83-4.51 [facility] Absolute neutrophil countOrd ered By: Ethan Suarez on 01-07-2025 Neutrophils (Bld) [#/Vol] 5.3 10*3/uL 2.0-7.7 [facility] Anion gap in Serum or Plasma Ordered By: Ethan Suarez on 01-07-2025 Anion gap [Moles/Vol] 11 mmol/L 5- [facility] Automated lymphocyte count a s percentage of total leukocytesOrdered By: Ethan Suarez on 01-07-2025 Lymphocytes/100 WBC Auto (Unsp spec) 31.8 % 19-41 [facility] BUN/creatinine ratioOrdered By: Ethan Suarez on 01-07-2025 Urea nitrogen/Creatinine [Mass ratio] 15.5 mg/mg 10-20 [facility] Basic Metabolic Profile (BMP )on 01-07-2025 BUN/CRE 15.5 RATIO Normal - [facility] Comment on above: Performed By: #### L 500.2500, L100.0100 ####[facility] [address] [place], [address] Calcium [Mass/Vol] 10.3 mg/dL Normal 7.6-11.0 [facility] Comment on above: Performed By: #### L 500.2500, L100.0100 ####[facility] [address] [place], [address] Chloride [Moles/Vol] 99 mmol/L Normal 98-108 [facility] Comment on above: Performed By: #### L 500.2500, L100.0100 ####[facility] [address] [place], [address] CO2 [Moles/Vol] 22.5 mmol/L Normal 21.0-32.0 [facility] Comment on above: Performed By: #### L 500.2500, L100.0100 ####[facility] [address] [place], [address] Creatinine [Mass/Vol] 0.90 mg/dL Normal 0.70-1.20 [facility] Comment on above: Performed By: #### L 500.2500, L100.0100 ####[facility] [address] [place], [address] ECRCL 49.31 ml/min Low 50-250 [facility] Comment on above: Performed By: #### L 500.2500, L100.0100 ####[facility] [address] [place], [address] GAP 11 Normal 5-15 [facility] Comment on above: Performed By: #### L 500.2500, L100.0100 ####[facility] [address] [place], [address] GFR/1.73 sq M.predicted among non-blacks MDRD (S/P/Bld) [Vol rate/Area] 64 mL/min/{1.73_m2} Normal >60 [facility] Comment on above: Result Comment: mL/m in/1.73m2 CKD-EPI Creatinine Equation (2020) Performed By: #### L 500.2500, L100.0100 ####[facility] [address] [place], [address] Glucose [Mass/Vol] 321 mg/dL High 70-99 [facility] Comment on above: Performed By: #### L 500.2500, L100.0100 ####[facility] [address] [place], [address] Potassium [Moles/Vol] 3.8 mmol/L Normal 3.3-5.1 [facility] Comment on above: Result Comment: Hemo lysis present, Results??could be affected.?? Performed By: #### L 500.2500, L100.0100 ####[facility] [address] [place], [address] Sodium [Moles/Vol] 133 mmol/L Normal 133-145 [facility] Comment on above: Performed By: #### L 500.2500, L100.0100 ####[facility] [address] [place], [address] Urea nitrogen [Mass/Vol] 14 mg/dL Normal 4-19 [facility] Comment on above: Performed By: #### L 500.2500, L100.0100 ####[facility] [address] [place], [address] Basophil percentageOrdered B y: Ethan Le on 01-07-2025 Basophils/100 WBC (Bld) 0.5 % 0-1 [facility] Bedside Glucoseon 05-10-2025 FINGERSTICK GLU 316 mg/dL High 74-106 [facility] Comment on above: Result Comment: KATARINA GARY OF PATIENT CARE PER NURSING PROTOCOL Performed By: #### L 501.080 ####[facility] [address] [place], [address] CBC W/Diff, Automatedon 05-1 0-2025 Absolute Lymph 2.89 X10 3/uL Normal 0.83-4.51 [facility] Comment on above: Performed By: #### L 500.2500, L100.0100 ####[facility] [address] [place], [address] Absolute Neut 5.3 X10 3/uL Normal 2.0-7.7 [facility] Comment on above: Performed By: #### L 500.2500, L100.0100 ####[facility] [address] [place], [address] Basophils/100 WBC (Bld) 0.5 % Normal 0-1 [facility] Comment on above: Performed By: #### L 500.2500, L100.0100 ####[facility] [address] [place], [address] Eosinophils/100 WBC (Bld) 1.9 % Normal 0-5 [facility] Comment on above: Performed By: #### L 500.2500, L100.0100 ####[facility] [address] [place], [address] Erythrocyte distribution width (RBC) [Ratio] 15.7 % High 11.6-14.6 [facility] Comment on above: Performed By: #### L 500.2500, L100.0100 ####[facility] [address] [place], [address] Hematocrit (Bld) [Volume fraction] 34.0 % Low 37-47 [facility] Comment on above: Performed By: #### L 500.2500, L100.0100 ####[facility] [address] [place], [address] Hemoglobin (Bld) [Mass/Vol] 10.5 g/dL Low 12.0-15.0 [facility] Comment on above: Performed By: #### L 500.2500, L100.0100 ####[facility] [address] [place], [address] IG% 0.200 Normal 0.0-0.9 [facility] Comment on above: Result Comment: IG% - Immature Granulocytes (promyelocytes, myelocytes andmetamyelocytes) > 1% indicates that a LEFT SHIFT is Present. Performed By: #### L 500.2500, L100.0100 ####[facility] [address] [place], [address] Lymphocytes/100 WBC (Bld) 31.8 % Normal 19-41 [facility] Comment on above: Performed By: #### L 500.2500, L100.0100 ####[facility] [address] [place], [address] MCH (RBC) [Entitic mass] 26.9 pg Low 27.0-32.0 [facility] Comment on above: Performed By: #### L 500.2500, L100.0100 ####[facility] [address] [place], [address] MCHC (RBC) [Mass/Vol] 30.9 g/dL Low 32-36 [facility] Comment on above: Performed By: #### L 500.2500, L100.0100 ####[facility] [address] [place], [address] MCV (RBC) [Entitic vol] 87.0 fL Normal 81-99 [facility] Comment on above: Performed By: #### L 500.2500, L100.0100 ####[facility] [address] [place], [address] Monocytes/100 WBC (Bld) 7.6 % Normal 0-10 [facility] Comment on above: Performed By: #### L 500.2500, L100.0100 ####[facility] [address] [place], [address] Neutrophils/100 WBC (Bld) 58.0 % Normal 47-70 [facility] Comment on above: Performed By: #### L 500.2500, L100.0100 ####[facility] [address] [place], [address] Nucleated RBC (Bld) [#/Vol] 0 10*3/uL Normal 0-5 [facility] Comment on above: Performed By: #### L 500.2500, L100.0100 ####[facility] [address] [place], [address] Platelet mean volume (Bld) [Entitic vol] 11.1 fL Normal 6.2-12.0 [facility] Comment on above: Performed By: #### L 500.2500, L100.0100 ####[facility] [address] [place], [address] Platelets (Bld) [#/Vol] 237 10*3/uL Normal 150-450 [facility] Comment on above: Performed By: #### L 500.2500, L100.0100 ####[facility] [address] [place], [address] RBC (Bld) [#/Vol] 3.91 10*6/uL Low 4.2-5.4 [facility] Comment on above: Performed By: #### L 500.2500, L100.0100 ####[facility] [address] [place], [address] RDW SD 49.4 fl High 35.1-43.9 [facility] Comment on above: Performed By: #### L 500.2500, L100.0100 ####[facility] [address] [place], [address] WBC (Bld) [#/Vol] 9.1 10*3/uL Normal 4.4-11.0 [facility] Comment on above: Performed By: #### L 500.2500, L100.0100 ####[facility] [address] [place], [address] Carbon dioxide, total [Moles /volume] in Central venous bloodOrdered By: Ethan Suarez on 01-07-2025 CO2 [Moles/Vol] 22.5 mmol/L 21.0-32.0 [facility] Chest PA and Lateralon 01-07 Chest PA and Lateral Normal [facility] Chloride assayOrdered By: Albaro Suarez on 01-07-2025 Chloride [Moles/Vol] 99 mmol/L 98-108 [facility] Emergency Department Summary on 01-07-2025 Emergency Department Summary Normal [facility] Eosinophil percentageOrdered By: Ethan Suarez on 01-07-2025 Eosinophils/100 WBC (Bld) 1.9 % 0-5 [facility] Erythrocyte distribution wid th ratioOrdered By: Ethan Suarez on 01-07-2025 Erythrocyte distribution width (RBC) [Ratio] 15.7 % High 11.6-14.6 [facility] Erythrocyte distribution wid th standard deviationOrdered By: Ethan Suarez on 01-07-2025 Erythrocyte distribution width (RBC) [Ratio] 49.4 fl High 35.1-43.9 [facility] Glomerular filtration rate ( GFR) estimation/1.73 sq m using serum, plasma, or whole bOrdered By: Ethan Suarez on 01-07-2025 GFR/1.73 sq M.predicted among non-blacks MDRD (S/P/Bld) [Vol rate/Area] 64 mL/min/{1.73_m2} >60 [facility] Comment on above: mL/min/1.73m2 CKD-EP I Creatinine Equation (2020) [facility] deOrdered By: Ethan Suarez on 01-07-2025 Glucose [Mass/Vol] 316 mg/dL High 74-106 [facility] Comment on above: MANAGEMENT OF PATIEN T CARE PER NURSING PROTOCOL Hematocrit Auto (Bld) [Volum e fraction]Ordered By: Ethan Suarez on 01-07-2025 Hematocrit (Bld) [Volume fraction] 34.0 % Low 37-47 [facility] Hemoglobin measurementOrdere d By: Ethan Suarez on 01-07-2025 Hemoglobin (Bld) [Mass/Vol] 10.5 g/dL Low 12.0-15.0 [facility] Immature granulocytes/100 WB C Auto (Bld)Ordered By: Ethan Suarez on 01-07-2025 Immature granulocytes/100 WBC (Bld) 0.200 % 0.0-0.9 [facility] Comment on above: IG% - Immature Granu locytes (promyelocytes, myelocytes and metamyelocytes) > 1% indicates that a LEFT SHIFT is Present. Influenza virus A and B and SARS-CoV-2 (COVID-19) and Respiratory syncytial virus RNAOrdered By: Ethan Suarez on 01-07-2025 SARS-CoV-2 (COVID-19) RNA EBBETO+probe Ql (Unsp spec) [facility] M100.678on 01-07-2025 M100.678 SARS-CoV-2 (COVID 19 ) Negative INFLUENZA A Negative INFLUENZA B Negative RSV PCR Negative Normal [facility] Comment on above: Performed By: #### M 100.678 ####[facility] [address] [place], [place], [id number] MCV (mean corpuscular volume ) determinationOrdered By: Ethan Suarez on 01-07-2025 MCV (RBC) [Entitic vol] 87.0 fL 81-99 [facility] Mean corpuscular hemoglobin (MCH) determinationOrdered By: Ethan Suarez on 01-07-2025 MCH (RBC) [Entitic mass] 26.9 pg Low 27.0-32.0 [facility] Mean corpuscular hemoglobin concentration (MCHC) determinationOrdered By: Ethan Suarez on 01-07-2025 MCHC (RBC) [Mass/Vol] 30.9 g/dL Low 32-36 [facility] Mean platelet volume determi nationOrdered By: Ethan Suarez on 01-07-2025 Platelet mean volume (Bld) [Entitic vol] 11.1 fL 6.2-12.0 [facility] Monocyte percentageOrdered B y: Ethan Suarez on 01-07-2025 Monocytes/100 WBC (Bld) 7.6 % 0-10 [facility] Neutrophil percentageOrdered By: Ethan Suarez on 01-07-2025 Neutrophils/100 WBC (Bld) 58.0 % 47-70 [facility] Nucleated red blood cell per centageOrdered By: Ethan Suarez on 01-07-2025 Nucleated RBC/100 WBC (Bld) [Ratio] 0 % 0-5 [facility] Platelet countOrdered By: Albaro Suarez on 01-07-2025 Platelets (Bld) [#/Vol] 237 10*3/uL 150-450 [facility] Potassium measurement (mass/ volume)Ordered By: Ethan Suarez on 01-07-2025 Potassium (Unsp spec) [Mass/Vol] 3.8 mmol/L 3.3-5.1 [facility] Comment on above: Hemolysis present, R esults could be affected. RBC Auto (Bld) [#/Vol]Ordere d By: Ethan Suarez on 01-07-2025 RBC (Bld) [#/Vol] 3.91 10*6/uL Low 4.2-5.4 [facility] Serum creatinine measurement (mass/volume)Ordered By: Ethan Suarez on 01-07-2025 Creatinine [Mass/Vol] 0.90 mg/dL 0.70-1.20 [facility] Serum glucose measurement (m ass/volume)Ordered By: Ethan Suarez on 01-07-2025 Glucose [Mass/Vol] 321 mg/dL High 70-99 [facility] Serum or plasma calcium melanie urement (mass/volume)Ordered By: Ethan Suarez on 01-07-2025 Calcium [Mass/Vol] 10.3 mg/dL 7.6-11.0 [facility] Serum or plasma urea nitroge n measurement (mass/volume)Ordered By: Ethan Suarez on 01-07-2025 Urea nitrogen [Mass/Vol] 14 mg/dL 4-19 [facility] Sodium levelOrdered By: Ethan Suarez on 01-07-2025 Sodium [Moles/Vol] 133 mmol/L 133-145 [facility] White blood cell (WBC) count Ordered By: Ethan Suarez on 01-07-2025 WBC (Bld) [#/Vol] 9.1 10*3/uL 4.4-11.0 [facility] Inital Evaluation (1) - PTon 10-13-2024 Inital Evaluation (1) - PT Normal [facility] Albumin to globulin ratioOrd ered By: Ramone Smiley on 09-27-2024 Albumin/Globulin [Mass ratio] 0.6 {ratio} Low 0.9-2.4 [facility] Bilirubin, totalOrdered By: Ramone Smiley on 09-27-2024 Bilirubin [Mass/Vol] 0.20 mg/dL 0.20-1.00 [facility] Comment on above: For patients on eltr ombopag therapy, use of Dimension [place] TBIL is not recommended. Blood urea nitrogen (BUN)/cr eatinine ratioOrdered By: Ramone Smiley on 09-27-2024 Urea nitrogen/Creatinine [Mass ratio] 12.7 mg/mg 10-20 [facility] CBC-Complete Blood Cnt No Di ffon 09-27-2024 Erythrocyte distribution width (RBC) [Ratio] 15.9 % High 11.6-14.6 [facility] Comment on above: Order Comment: Order Date: 09/27/24Order Info: [id number] - CBC Performed By: #### L 500.4050, L100.0500 ####[facility] [address] [place], [address] Hematocrit (Bld) [Volume fraction] 35.7 % Low 37-47 [facility] Comment on above: Order Comment: Order Date: 09/27/24Order Info: [id number] - CBC Performed By: #### L 500.4050, L100.0500 ####[facility] [address] [place], [address] Hemoglobin (Bld) [Mass/Vol] 11.0 g/dL Low 12.0-15.0 [facility] Comment on above: Order Comment: Order Date: 09/27/24Order Info: [id number] - CBC Performed By: #### L 500.4050, L100.0500 ####[facility] [address] [place], [address] MCH (RBC) [Entitic mass] 25.8 pg Low 27.0-32.0 [facility] Comment on above: Order Comment: Order Date: 09/27/24Order Info: [id number] - CBC Performed By: #### L 500.4050, L100.0500 ####[facility] [address] [place], [address] MCHC (RBC) [Mass/Vol] 30.8 g/dL Low 32-36 [facility] Comment on above: Order Comment: Order Date: 09/27/24Order Info: [id number] - CBC Performed By: #### L 500.4050, L100.0500 ####[facility] [address] [place], [address] MCV (RBC) [Entitic vol] 83.6 fL Normal 81-99 [facility] Comment on above: Order Comment: Order Date: 09/27/24Order Info: [id number] - CBC Performed By: #### L 500.4050, L100.0500 ####[facility] [address] [place], [address] Platelet mean volume (Bld) [Entitic vol] 11.3 fL Normal 6.2-12.0 [facility] Comment on above: Order Comment: Order Date: 09/27/24Order Info: [id number] - CBC Performed By: #### L 500.4050, L100.0500 ####[facility] [address] [place], [address] Platelets (Bld) [#/Vol] 287 10*3/uL Normal 150-450 [facility] Comment on above: Order Comment: Order Date: 09/27/24Order Info: [id number] - CBC Performed By: #### L 500.4050, L100.0500 ####[facility] [address] [place], [address] RBC (Bld) [#/Vol] 4.27 10*6/uL Normal 4.2-5.4 [facility] Comment on above: Order Comment: Order Date: 09/27/24Order Info: [id number] - CBC Performed By: #### L 500.4050, L100.0500 ####[facility] [address] [place], [address] RDW SD 47.4 fl High 35.1-43.9 [facility] Comment on above: Order Comment: Order Date: 09/27/24Order Info: [id number] - CBC Performed By: #### L 500.4050, L100.0500 ####[facility] [address] [place], [address] WBC (Bld) [#/Vol] 8.6 10*3/uL Normal 4.4-11.0 [facility] Comment on above: Order Comment: Order Date: 09/27/24Order Info: [id number] - CBC Performed By: #### L 500.4050, L100.0500 ####[facility] [address] [place], [address] Carbon dioxide measurementOr dered By: Ramone Smiley on 09-27-2024 CO2 [Moles/Vol] 28.0 mmol/L 21.0-32.0 [facility] Chloride measurementOrdered By: Ramone Smiley on 09-27-2024 Chloride [Moles/Vol] 101 mmol/L 98-107 [facility] Comprehensive Metabolic Prof ilon 09-27-2024 Albumin [Mass/Vol] 3.0 g/dL Low 3.2-5.0 [facility] Comment on above: Order Comment: Order Date: 09/27/24Order Info: [id number] - CMPOrder Info: [id number] - CRE Performed By: #### L 500.4050, L100.0500 ####[facility] [address] [place], [address] Albumin/Globulin [Mass ratio] 0.6 {ratio} Low 0.9-2.4 [facility] Comment on above: Order Comment: Order Date: 09/27/24Order Info: 86-1 - CMPOrder Info: [id number] - CRE Performed By: #### L 500.4050, L100.0500 ####[facility] [address] [place], [address] ALK P 145 U/L High 45-117 [facility] Comment on above: Order Comment: Order Date: 09/27/24Order Info: 07-1 - CMPOrder Info: [id number] - CRE Performed By: #### L 500.4050, L100.0500 ####[facility] [address] [place], [address] ALT [Catalytic activity/Vol] 16 U/L Normal 13-56 [facility] Comment on above: Order Comment: Order Date: 09/27/24Order Info: [id number] - CMPOrder Info: [id number] - CRE Performed By: #### L 500.4050, L100.0500 ####[facility] [address] [place], [address] AST [Catalytic activity/Vol] 16 U/L Normal 15-37 [facility] Comment on above: Order Comment: Order Date: 09/27/24Order Info: [id number] - CMPOrder Info: [id number] - CRE Performed By: #### L 500.4050, L100.0500 ####[facility] [address] [place], [address] Bilirubin [Mass/Vol] 0.20 mg/dL Normal 0.20-1.00 [facility] Comment on above: Order Comment: Order Date: 09/27/24Order Info: [id number] - CMPOrder Info: [id number] - CRE Result Comment: For patients on eltrombopag therapy, use of Dimension [place] TBIL is not recommended. Performed By: #### L 500.4050, L100.0500 ####[facility] [address] [place], [address] BUN/CRE 12.7 RATIO Normal 10-20 [facility] Comment on above: Order Comment: Order Date: 09/27/24Order Info: [id number] - CMPOrder Info: [id number] - CRE Performed By: #### L 500.4050, L100.0500 ####[facility] [address] [place], [address] CA,Total 11.0 mg/dL High 8.5-10.1 [facility] Comment on above: Order Comment: Order Date: 09/27/24Order Info: [id number]- - CMPOrder Info: [id number] - CRE Performed By: #### L 500.4050, L100.0500 ####[facility] [address] [place], [address] Chloride [Moles/Vol] 101 mmol/L Normal 98-107 [facility] Comment on above: Order Comment: Order Date: 09/27/24Order Info: 0786- - CMPOrder Info: [id number] - CRE Performed By: #### L 500.4050, L100.0500 ####[facility] [address] [place], [address] CO2 [Moles/Vol] 28.0 mmol/L Normal 21.0-32.0 [facility] Comment on above: Order Comment: Order Date: 09/27/24Order Info: [id number] - CMPOrder Info: [id number] - CRE Performed By: #### L 500.4050, L100.0500 ####[facility] [address] [place], [address] Creatinine [Mass/Vol] 0.86 mg/dL Normal 0.55-1.02 [facility] Comment on above: Order Comment: Order Date: 09/27/24Order Info: [id number] - CMPOrder Info: [id number] - CRE Result Comment: The validity of the calculated GFR GFRAA in patients over70 years has not been determined. Clinical correlation isessential. Performed By: #### L 500.4050, L100.0500 ####[facility] [address] [place], [address] EST GFR - AA 81 mL/min Normal >60 [facility] Comment on above: Order Comment: Order Date: 09/27/24Order Info: [id number] - CMPOrder Info: [id number] - CRE Result Comment: Afri can Vietnamese GFR Calc Performed By: #### L 500.4050, L100.0500 ####[facility] [address] [place], [address] GAP 8 Normal 5-15 [facility] Comment on above: Order Comment: Order Date: 09/27/24Order Info: [id number] - CMPOrder Info: [id number] - CRE Performed By: #### L 500.4050, L100.0500 ####[facility] [address] [place], [address] GFR/1.73 sq M.predicted among non-blacks MDRD (S/P/Bld) [Vol rate/Area] 67 mL/min/{1.73_m2} Normal >60 [facility] Comment on above: Order Comment: Order Date: 09/27/24Order Info: [id number] - CMPOrder Info: [id number] - CRE Result Comment: Non- GFR Calc Performed By: #### L 500.4050, L100.0500 ####[facility] [address] [place], [address] Globulin (S) [Mass/Vol] 5.0 g/dL High 2.2-4.2 [facility] Comment on above: Order Comment: Order Date: 09/27/24Order Info: [id number] - CMPOrder Info: [id number] - CRE Performed By: #### L 500.4050, L100.0500 ####[facility] [address] [place], [address] Glucose [Mass/Vol] 144 mg/dL High 74-106 [facility] Comment on above: Order Comment: Order Date: 09/27/24Order Info: [id number] - CMPOrder Info: [id number] - CRE Result Comment: Fast ing Glucose result greater than or equal to 126 mg/dLsuggests DIABETES MELLITUS per A.D.A. criteria. Performed By: #### L 500.4050, L100.0500 ####[facility] [address] [place], [address] Potassium [Moles/Vol] 3.5 mmol/L Normal 3.5-5.1 [facility] Comment on above: Order Comment: Order Date: 09/27/24Order Info: [id number]- - CMPOrder Info: [id number]- - CRE Performed By: #### L 500.4050, L100.0500 ####[facility] [address] [place], [address] Sodium [Moles/Vol] 138 mmol/L Normal 136-145 [facility] Comment on above: Order Comment: Order Date: 09/27/24Order Info: [id number] - CMPOrder Info: [id number]- - CRE Performed By: #### L 500.4050, L100.0500 ####[facility] [address] [place], [address] T PROT 8.0 g/dL Normal 6.4-8.2 [facility] Comment on above: Order Comment: Order Date: 09/27/24Order Info: [id number] - CMPOrder Info: [id number]- - CRE Performed By: #### L 500.4050, L100.0500 ####[facility] [address] [place], [place], [address] Urea nitrogen [Mass/Vol] 11 mg/dL Normal 7-18 [facility] Comment on above: Order Comment: Order Date: 09/27/24Order Info: [id number] - CMPOrder Info: [id number] - CRE Performed By: #### L 500.4050, L100.0500 ####[facility] [address] [place], [address] Erythrocyte distribution wid th ratioOrdered By: Ramone Smiley on 09-27-2024 Erythrocyte distribution width (RBC) [Ratio] 15.9 % High 11.6-14.6 [facility] Erythrocyte distribution wid th standard deviationOrdered By: Ramone Smiley on 09-27-2024 Erythrocyte distribution width (RBC) [Ratio] 47.4 fl High 35.1-43.9 [facility] Glomerular filtration rate ( GFR) estimationOrdered By: Ramone Smiley on 09-27-2024 GFR/1.73 sq M.predicted among non-blacks MDRD (S/P/Bld) [Vol rate/Area] 67 mL/min/{1.73_m2} >60 [facility] Comment on above: Non- GFR Calc Glucose measurementOrdered B y: Ramone Smiley on 09-27-2024 Glucose [Mass/Vol] 144 mg/dL High 74-106 [facility] Comment on above: Fasting Glucose resu lt greater than or equal to 126 mg/dL suggests DIABETES MELLITUS per A.D.A. criteria. Hematocrit Auto (Bld) [Volum e fraction]Ordered By: Ramone Smiley on 09-27-2024 Hematocrit (Bld) [Volume fraction] 35.7 % Low 37-47 [facility] Hemoglobin measurementOrdere d By: Ramone Smiley on 09-27-2024 Hemoglobin (Bld) [Mass/Vol] 11.0 g/dL Low 12.0-15.0 [facility] Laboratory - Chemistry and C hemistry - challengeOrdered By: Ramone Smiley on 09-27-2024 AST [Catalytic activity/Vol] 16 U/L 15-37 [facility] MCV (mean corpuscular volume ) determinationOrdered By: Ramone Smiley on 09-27-2024 MCV (RBC) [Entitic vol] 83.6 fL 81-99 [facility] Mean corpuscular hemoglobin (MCH) determinationOrdered By: Ramone Smiley on 09-27-2024 MCH (RBC) [Entitic mass] 25.8 pg Low 27.0-32.0 [facility] Mean corpuscular hemoglobin concentration (MCHC) determinationOrdered By: Ramone Smiley on 09-27-2024 MCHC (RBC) [Mass/Vol] 30.8 g/dL Low 32-36 [facility] Mean platelet volume determi nationOrdered By: Ramone Smiley on 09-27-2024 Platelet mean volume (Bld) [Entitic vol] 11.3 fL 6.2-12.0 [facility] No Panel InformationOrdered By: Ramone Smiley on 09-27-2024 16 U/L 15-37 [facility] Platelet countOrdered By: Richar Smiley on 09-27-2024 Platelets (Bld) [#/Vol] 287 10*3/uL 150-450 [facility] Potassium measurementOrdered By: Ramone Smiley on 09-27-2024 Potassium [Moles/Vol] 3.5 mmol/L 3.5-5.1 [facility] RBC Auto (Bld) [#/Vol]Ordere d By: Ramone Smiley on 09-27-2024 RBC (Bld) [#/Vol] 4.27 10*6/uL 4.2-5.4 [facility] Serum anion gap measurementO rdered By: Ramone Smiley on 09-27-2024 Anion gap [Moles/Vol] 8 mmol/L 5-15 [facility] Serum globulin measurementOr dered By: Ramone Smiley on 09-27-2024 Globulin (S) [Mass/Vol] 5.0 g/dL High 2.2-4.2 [facility] Serum or plasma alanine kelley otransferase (ALT) measurementOrdered By: Ramone Smiley on 09-27-2024 ALT [Catalytic activity/Vol] 16 U/L 13-56 [facility] Serum or plasma albumin melanie urement (mass/volume)Ordered By: Ramone Smiley on 09-27-2024 Albumin [Mass/Vol] 3.0 g/dL Low 3.2-5.0 [facility] Serum or plasma alkaline lissa sphatase measurementOrdered By: Ramone Smiley on 09-27-2024 ALP [Catalytic activity/Vol] 145 U/L High 45-117 [facility] Serum or plasma calcium melanie urement (mass/volume)Ordered By: Ramone Smiley on 09-27-2024 Calcium [Mass/Vol] 11.0 mg/dL High 8.5-10.1 [facility] Serum or plasma creatinine m easurement (mass/volume)Ordered By: Ramone Smiley on 09-27-2024 Creatinine [Mass/Vol] 0.86 mg/dL 0.55-1.02 [facility] Comment on above: The validity of the calculated GFR & GFRAA in patients over 70 years has not been determined. Clinical correlation is essential. Serum or plasma urea nitroge n measurement (mass/volume)Ordered By: Ramone Smiley on 09-27-2024 Urea nitrogen [Mass/Vol] 11 mg/dL 7-18 [facility] Sodium levelOrdered By: Ramone Smiley on 09-27-2024 Sodium [Moles/Vol] 138 mmol/L 136-145 [facility] Total proteinOrdered By: Lilliam Smiley on 09-27-2024 Protein [Mass/Vol] 8.0 g/dL 6.4-8.2 [facility] White blood cell (WBC) count Ordered By: Ramone Smiley on 09-27-2024 WBC (Bld) [#/Vol] 8.6 10*3/uL 4.4-11.0 [facility] Kidney and Bladderon 024 Kidney and Bladder Normal [facility] BNP,B-Type NATRIURETIC PEPTI Ishaan 06-19-2024 Natriuretic peptide B (Bld) [Mass/Vol] 81.6 pg/mL Normal 0-100 [facility] Comment on above: Performed By: #### L 500.2500, L503.6620, L100.0100 ####[facility] [address] [place], [place], [id number] Basic Metabolic Profile (BMP )on 06-19-2024 BUN/CRE 9.3 RATIO Low 10-20 [facility] Comment on above: Performed By: #### L 500.2500, L503.6620, L100.0100 ####[facility] [address] [place], [address] CA,Total 11.0 mg/dL High 8.5-10.1 [facility] Comment on above: Performed By: #### L 500.2500, L503.6620, L100.0100 ####[facility] [address] [place], [address] Chloride [Moles/Vol] 104 mmol/L Normal 98-107 [facility] Comment on above: Performed By: #### L 500.2500, L503.6620, L100.0100 ####[facility] [address] [place], [address] CO2 [Moles/Vol] 26.0 mmol/L Normal 21.0-32.0 [facility] Comment on above: Performed By: #### L 500.2500, L503.6620, L100.0100 ####[facility] [address] [place], [address] Creatinine [Mass/Vol] 1.08 mg/dL High 0.55-1.02 [facility] Comment on above: Result Comment: The validity of the calculated GFR GFRAA in patients over70 years has not been determined. Clinical correlation isessential. Performed By: #### L 500.2500, L503.6620, L100.0100 ####[facility] [address] [place], [address] EST GFR - AA 63 mL/min Normal >60 [facility] Comment on above: Result Comment: Afri can Vietnamese GFR Calc Performed By: #### L 500.2500, L503.6620, L100.0100 ####[facility] [address] [place], [address] GAP 6 Normal 5-15 [facility] Comment on above: Performed By: #### L 500.2500, L503.6620, L100.0100 ####[facility] [address] [place], [address] GFR/1.73 sq M.predicted among non-blacks MDRD (S/P/Bld) [Vol rate/Area] 52 mL/min/{1.73_m2} Low >60 [facility] Comment on above: Result Comment: Non- GFR Calc Performed By: #### L 500.2500, L503.6620, L100.0100 ####[facility] [address] [place], [address] Glucose [Mass/Vol] 263 mg/dL High 74-106 [facility] Comment on above: Result Comment: Gluc ose result greater than or equal to 200 mg/dLsuggests DIABETES MELLITUS per A.D.A. criteria. Performed By: #### L 500.2500, L503.6620, L100.0100 ####[facility] [address] [place], [address] Potassium [Moles/Vol] 4.4 mmol/L Normal 3.5-5.1 [facility] Comment on above: Performed By: #### L 500.2500, L503.6620, L100.0100 ####[facility] [address] [place], [address] Sodium [Moles/Vol] 137 mmol/L Normal 136-145 [facility] Comment on above: Performed By: #### L 500.2500, L503.6620, L100.0100 ####[facility] [address] [place], [address] Urea nitrogen [Mass/Vol] 10 mg/dL Normal 7-18 [facility] Comment on above: Performed By: #### L 500.2500, L503.6620, L100.0100 ####[facility] [address] [place], [address] CBC W/Diff, Automatedon 10-2 0-2024 Absolute Lymph 2.32 X10 3/uL Normal 0.83-4.51 [facility] Comment on above: Performed By: #### L 500.2500, L503.6620, L100.0100 ####[facility] [address] [place], [address] Absolute Neut 4.7 X10 3/uL Normal 2.0-7.7 [facility] Comment on above: Performed By: #### L 500.2500, L503.6620, L100.0100 ####[facility] [address] [place], [address] Basophils/100 WBC (Bld) 0.5 % Normal 0-1 [facility] Comment on above: Performed By: #### L 500.2500, L503.6620, L100.0100 ####[facility] [address] [place], [address] Eosinophils/100 WBC (Bld) 8.7 % High 0-5 [facility] Comment on above: Performed By: #### L 500.2500, L503.6620, L100.0100 ####[facility] [address] [place], [address] Erythrocyte distribution width (RBC) [Ratio] 16.6 % High 11.6-14.6 [facility] Comment on above: Performed By: #### L 500.2500, L503.6620, L100.0100 ####[facility] [address] [place], [address] Hematocrit (Bld) [Volume fraction] 36.6 % Low 37-47 [facility] Comment on above: Performed By: #### L 500.2500, L503.6620, L100.0100 ####[facility] [address] [place], [address] Hemoglobin (Bld) [Mass/Vol] 11.2 g/dL Low 12.0-15.0 [facility] Comment on above: Performed By: #### L 500.2500, L503.6620, L100.0100 ####[facility] [address] [place], [address] IG% 0.200 Normal 0.0-0.9 [facility] Comment on above: Result Comment: IG% - Immature Granulocytes (promyelocytes, myelocytes andmetamyelocytes) > 1% indicates that a LEFT SHIFT is Present. Performed By: #### L 500.2500, L503.6620, L100.0100 ####[facility] [address] [place], [address] Lymphocytes/100 WBC (Bld) 27.7 % Normal 19-41 [facility] Comment on above: Performed By: #### L 500.2500, L503.6620, L100.0100 ####[facility] [address] [place], [address] MCH (RBC) [Entitic mass] 25.6 pg Low 27.0-32.0 [facility] Comment on above: Performed By: #### L 500.2500, L503.6620, L100.0100 ####[facility] [address] [place], [address] MCHC (RBC) [Mass/Vol] 30.6 g/dL Low 32-36 [facility] Comment on above: Performed By: #### L 500.2500, L503.6620, L100.0100 ####[facility] [address] [place], [address] MCV (RBC) [Entitic vol] 83.8 fL Normal 81-99 [facility] Comment on above: Performed By: #### L 500.2500, L503.6620, L100.0100 ####[facility] [address] [place], [address] Monocytes/100 WBC (Bld) 6.7 % Normal 0-10 [facility] Comment on above: Performed By: #### L 500.2500, L503.6620, L100.0100 ####[facility] [address] [place], [address] Neutrophils/100 WBC (Bld) 56.2 % Normal 47-70 [facility] Comment on above: Performed By: #### L 500.2500, L503.6620, L100.0100 ####[facility] [address] [place], [address] Nucleated RBC (Bld) [#/Vol] 0 10*3/uL Normal 0-5 [facility] Comment on above: Performed By: #### L 500.2500, L503.6620, L100.0100 ####[facility] [address] [place], [address] Platelet mean volume (Bld) [Entitic vol] 10.4 fL Normal 6.2-12.0 [facility] Comment on above: Performed By: #### L 500.2500, L503.6620, L100.0100 ####[facility] [address] [place], [address] Platelets (Bld) [#/Vol] 234 10*3/uL Normal 150-450 [facility] Comment on above: Performed By: #### L 500.2500, L503.6620, L100.0100 ####[facility] [address] [place], [address] RBC (Bld) [#/Vol] 4.37 10*6/uL Normal 4.2-5.4 [facility] Comment on above: Performed By: #### L 500.2500, L503.6620, L100.0100 ####[facility] [address] [place], [address] RDW SD 50.9 fl High 35.1-43.9 [facility] Comment on above: Performed By: #### L 500.2500, L503.6620, L100.0100 ####[facility] [address] [place], [address] WBC (Bld) [#/Vol] 8.4 10*3/uL Normal 4.4-11.0 [facility] Comment on above: Performed By: #### L 500.2500, L503.6620, L100.0100 ####[facility] [address] [place], [address] Chest 1 View (Portable)on Chest 1 View (Portable) Normal [facility] Emergency Department Summary on 06-19-2024 Emergency Department Summary Normal [facility] 12 Lead EKGon 05-30-2024 12 Lead EKG Normal [facility] BNP,B-Type NATRIURETIC PEPTI Ishaan 05-30-2024 Natriuretic peptide B (Bld) [Mass/Vol] 108.0 pg/mL High 0-100 [facility] Comment on above: Performed By: #### L 100.0100, L503.6620, L500.2500, L501.4020 ####[facility] [address] [place], [address] Basic Metabolic Profile (BMP )on 05-30-2024 BUN/CRE 12.8 RATIO Normal 06-19 [facility] Comment on above: Order Comment: 'TROP ' Serial specimen #1, #2 or #3: 1 Performed By: #### L 100.0100, L503.6620, L500.2500, L501.4020 ####[facility] [address] [place], [address] CA,Total 11.4 mg/dL High 8.5-10.1 [facility] Comment on above: Order Comment: 'TROP ' Serial specimen #1, #2 or #3: 1 Performed By: #### L 100.0100, L503.6620, L500.2500, L501.4020 ####[facility] [address] [place], [address] Chloride [Moles/Vol] 104 mmol/L Normal 98-107 [facility] Comment on above: Order Comment: 'TROP ' Serial specimen #1, #2 or #3: 1 Performed By: #### L 100.0100, L503.6620, L500.2500, L501.4020 ####[facility] [address] [place], [address] CO2 [Moles/Vol] 28.0 mmol/L Normal 21.0-32.0 [facility] Comment on above: Order Comment: 'TROP ' Serial specimen #1, #2 or #3: 1 Performed By: #### L 100.0100, L503.6620, L500.2500, L501.4020 ####[facility] [address] [place], [address] Creatinine [Mass/Vol] 0.93 mg/dL Normal 0.55-1.02 [facility] Comment on above: Order Comment: 'TROP ' Serial specimen #1, #2 or #3: 1 Result Comment: The validity of the calculated GFR GFRAA in patients over70 years has not been determined. Clinical correlation isessential. Performed By: #### L 100.0100, L503.6620, L500.2500, L501.4020 ####[facility] [address] [place], [address] ECRCL 45.88 ml/min Normal [facility] Comment on above: Order Comment: 'TROP ' Serial specimen #1, #2 or #3: 1 Performed By: #### L 100.0100, L503.6620, L500.2500, L501.4020 ####[facility] [address] [place], [address] EST GFR - AA 74 mL/min Normal >60 [facility] Comment on above: Order Comment: 'TROP ' Serial specimen #1, #2 or #3: 1 Result Comment: Afri can Vietnamese GFR Calc Performed By: #### L 100.0100, L503.6620, L500.2500, L501.4020 ####[facility] [address] [place], [address] GAP 7 Normal 5-15 [facility] Comment on above: Order Comment: 'TROP ' Serial specimen #1, #2 or #3: 1 Performed By: #### L 100.0100, L503.6620, L500.2500, L501.4020 ####[facility] [address] [place], [address] GFR/1.73 sq M.predicted among non-blacks MDRD (S/P/Bld) [Vol rate/Area] 61 mL/min/{1.73_m2} Normal >60 [facility] Comment on above: Order Comment: 'TROP ' Serial specimen #1, #2 or #3: 1 Result Comment: Non- GFR Calc Performed By: #### L 100.0100, L503.6620, L500.2500, L501.4020 ####[facility] [address] [place], [address] Glucose [Mass/Vol] 167 mg/dL High 74-106 [facility] Comment on above: Order Comment: 'TROP ' Serial specimen #1, #2 or #3: 1 Result Comment: Fast ing Glucose result greater than or equal to 126 mg/dLsuggests DIABETES MELLITUS per A.D.A. criteria. Performed By: #### L 100.0100, L503.6620, L500.2500, L501.4020 ####[facility] [address] [place], [address] Potassium [Moles/Vol] 4.0 mmol/L Normal 3.5-5.1 [facility] Comment on above: Order Comment: 'TROP ' Serial specimen #1, #2 or #3: 1 Performed By: #### L 100.0100, L503.6620, L500.2500, L501.4020 ####[facility] [address] [place], [address] Sodium [Moles/Vol] 138 mmol/L Normal 136-145 [facility] Comment on above: Order Comment: 'TROP ' Serial specimen #1, #2 or #3: 1 Performed By: #### L 100.0100, L503.6620, L500.2500, L501.4020 ####[facility] [address] [place], [address] Urea nitrogen [Mass/Vol] 12 mg/dL Normal 7-18 [facility] Comment on above: Order Comment: 'TROP ' Serial specimen #1, #2 or #3: 1 Performed By: #### L 100.0100, L503.6620, L500.2500, L501.4020 ####[facility] [address] [place], [address] CBC W/Diff, Automatedon 05-03 PLT EST ADEQUATE Normal ADEQ [facility] Comment on above: Performed By: #### L 100.0100, L503.6620, L500.2500, L501.4020 ####[facility] [address] [place], [address] Chest PA and Lateralon 05-30 Chest PA and Lateral Normal [facility] Emergency Department Summary on 05-30-2024 Emergency Department Summary Normal [facility] L501.4020on 05-30-2024 TROPONIN-I HS 12 pg/mL Normal 3.0-54.0 [facility] Comment on above: Order Comment: 'TROP ' Serial specimen #1, #2 or #3: 1 Result Comment: Sean reyes Note: New Test Units and Gender Specific Reference Ranges. For more information see Policy Stat Procedure [place] High Sensitivity Troponin (TNIH) and attachments. Performed By: #### L 100.0100, L503.6620, L500.2500, L501.4020 ####[facility] [address] [place], [address] Inital Evaluation (1) - PTon 04-26-2024 Inital Evaluation (1) - PT Normal [facility] CBC W/Diff, Automatedon 03-31 Absolute Lymph 1.93 X10 3/uL Normal 0.83-4.51 [facility] Comment on above: Performed By: #### L 100.0100, L500.4050, L501.9985 ####[facility] [address] [place], [address] Absolute Neut 5.1 X10 3/uL Normal 2.0-7.7 [facility] Comment on above: Performed By: #### L 100.0100, L500.4050, L501.9985 ####[facility] [address] [place], [address] Basophils/100 WBC (Bld) 0.6 % Normal 0-1 [facility] Comment on above: Performed By: #### L 100.0100, L500.4050, L501.9985 ####[facility] [address] [place], [address] Eosinophils/100 WBC (Bld) 3.7 % Normal 0-5 [facility] Comment on above: Performed By: #### L 100.0100, L500.4050, L501.9985 ####[facility] [address] [place], [address] Erythrocyte distribution width (RBC) [Ratio] 16.0 % High 11.6-14.6 [facility] Comment on above: Performed By: #### L 100.0100, L500.4050, L501.9985 ####[facility] [address] [place], [address] Hematocrit (Bld) [Volume fraction] 34.9 % Low 37-47 [facility] Comment on above: Performed By: #### L 100.0100, L500.4050, L501.9985 ####[facility] [address] [place], [address] Hemoglobin (Bld) [Mass/Vol] 10.4 g/dL Low 12.0-15.0 [facility] Comment on above: Performed By: #### L 100.0100, L500.4050, L501.9985 ####[facility] [address] [place], [address] IG% 0.300 Normal 0.0-0.9 [facility] Comment on above: Result Comment: IG% - Immature Granulocytes (promyelocytes, myelocytes andmetamyelocytes) > 1% indicates that a LEFT SHIFT is Present. Performed By: #### L 100.0100, L500.4050, L501.9985 ####[facility] [address] [place], [address] Lymphocytes/100 WBC (Bld) 24.5 % Normal 19-41 [facility] Comment on above: Performed By: #### L 100.0100, L500.4050, L501.9985 ####[facility] [address] [place], [address] MCH (RBC) [Entitic mass] 24.4 pg Low 27.0-32.0 [facility] Comment on above: Performed By: #### L 100.0100, L500.4050, L501.9985 ####[facility] [address] [place], [address] MCHC (RBC) [Mass/Vol] 29.8 g/dL Low 32-36 [facility] Comment on above: Performed By: #### L 100.0100, L500.4050, L501.9985 ####[facility] [address] [place], [address] MCV (RBC) [Entitic vol] 81.9 fL Normal 81-99 [facility] Comment on above: Performed By: #### L 100.0100, L500.4050, L501.9985 ####[facility] [address] [place], [address] Monocytes/100 WBC (Bld) 6.8 % Normal 0-10 [facility] Comment on above: Performed By: #### L 100.0100, L500.4050, L501.9985 ####[facility] [address] [place], [address] Neutrophils/100 WBC (Bld) 64.1 % Normal 47-70 [facility] Comment on above: Performed By: #### L 100.0100, L500.4050, L501.9985 ####[facility] [address] [place], [address] Nucleated RBC (Bld) [#/Vol] 0 10*3/uL Normal 0-5 [facility] Comment on above: Performed By: #### L 100.0100, L500.4050, L501.9985 ####[facility] [address] [place], [address] Platelet mean volume (Bld) [Entitic vol] 10.7 fL Normal 6.2-12.0 [facility] Comment on above: Performed By: #### L 100.0100, L500.4050, L501.9985 ####[facility] [address] [place], [address] Platelets (Bld) [#/Vol] 294 10*3/uL Normal 150-450 [facility] Comment on above: Performed By: #### L 100.0100, L500.4050, L501.9985 ####[facility] [address] [place], [address] RBC (Bld) [#/Vol] 4.26 10*6/uL Normal 4.2-5.4 [facility] Comment on above: Performed By: #### L 100.0100, L500.4050, L501.9985 ####[facility] [address] [place], [address] RDW SD 48.0 fl High 35.1-43.9 [facility] Comment on above: Performed By: #### L 100.0100, L500.4050, L501.9985 ####[facility] [address] [place], [address] WBC (Bld) [#/Vol] 7.9 10*3/uL Normal 4.4-11.0 [facility] Comment on above: Performed By: #### L 100.0100, L500.4050, L501.9985 ####[facility] [address] [place], [address] Comprehensive Metabolic Prof [facility] 04-18-2024 Albumin [Mass/Vol] 3.0 g/dL Low 3.2-5.0 [facility] Comment on above: Performed By: #### L 100.0100, L500.4050, L501.9985 ####[facility] [address] [place], [address] Albumin/Globulin [Mass ratio] 0.6 {ratio} Low 0.9-2.4 [facility] Comment on above: Performed By: #### L 100.0100, L500.4050, L501.9985 ####[facility] [address] [place], [address] ALK P 130 U/L High 45-117 [facility] Comment on above: Performed By: #### L 100.0100, L500.4050, L501.9985 ####[facility] [address] [place], [address] ALT [Catalytic activity/Vol] 14 U/L Normal 13-56 [facility] Comment on above: Performed By: #### L 100.0100, L500.4050, L501.9985 ####[facility] [address] [place], [address] AST [Catalytic activity/Vol] 22 U/L Normal 15-37 [facility] Comment on above: Performed By: #### L 100.0100, L500.4050, L501.9985 ####[facility] [address] [place], [address] Bilirubin [Mass/Vol] 0.30 mg/dL Normal 0.20-1.00 [facility] Comment on above: Result Comment: For patients on eltrombopag therapy, use of Dimension [place] TBIL is not recommended. Performed By: #### L 100.0100, L500.4050, L501.9985 ####[facility] [address] [place], [address] BUN/CRE 12.5 RATIO Normal 10-20 [facility] Comment on above: Performed By: #### L 100.0100, L500.4050, L501.9985 ####[facility] [address] [place], [address] CA,Total 11.0 mg/dL High 8.5-10.1 [facility] Comment on above: Performed By: #### L 100.0100, L500.4050, L501.9985 ####[facility] [address] [place], [address] Chloride [Moles/Vol] 101 mmol/L Normal 98-107 [facility] Comment on above: Performed By: #### L 100.0100, L500.4050, L501.9985 ####[facility] [address] [place], [address] CO2 [Moles/Vol] 26.0 mmol/L Normal 21.0-32.0 [facility] Comment on above: Performed By: #### L 100.0100, L500.4050, L501.9985 ####[facility] [address] [place], [address] Creatinine [Mass/Vol] 0.96 mg/dL Normal 0.55-1.02 [facility] Comment on above: Result Comment: The validity of the calculated GFR GFRAA in patients over70 years has not been determined. Clinical correlation isessential. Performed By: #### L 100.0100, L500.4050, L501.9985 ####[facility] [address] [place], [address] EST GFR - AA 72 mL/min Normal >60 [facility] Comment on above: Result Comment: Afri can Vietnamese GFR Calc Performed By: #### L 100.0100, L500.4050, L501.9985 ####[facility] [address] [place], [address] GAP 6 Normal 5-15 [facility] Comment on above: Performed By: #### L 100.0100, L500.4050, L501.9985 ####[facility] [address] [place], [address] GFR/1.73 sq M.predicted among non-blacks MDRD (S/P/Bld) [Vol rate/Area] 59 mL/min/{1.73_m2} Low >60 [facility] Comment on above: Result Comment: Non- GFR Calc Performed By: #### L 100.0100, L500.4050, L501.9985 ####[facility] [address] [place], [address] Globulin (S) [Mass/Vol] 5.4 g/dL High 2.2-4.2 [facility] Comment on above: Performed By: #### L 100.0100, L500.4050, L501.9985 ####[facility] [address] [place], [address] Glucose [Mass/Vol] 142 mg/dL High 74-106 [facility] Comment on above: Result Comment: Fast ing Glucose result greater than or equal to 126 mg/dLsuggests DIABETES MELLITUS per A.D.A. criteria. Performed By: #### L 100.0100, L500.4050, L501.9985 ####[facility] [address] [place], [address] Potassium [Moles/Vol] 3.5 mmol/L Normal 3.5-5.1 [facility] Comment on above: Performed By: #### L 100.0100, L500.4050, L501.9985 ####[facility] [address] [place], [address] Sodium [Moles/Vol] 133 mmol/L Low 136-145 [facility] Comment on above: Performed By: #### L 100.0100, L500.4050, L501.9985 ####[facility] [address] [place], [address] T PROT 8.4 g/dL High 6.4-8.2 [facility] Comment on above: Performed By: #### L 100.0100, L500.4050, L501.9985 ####[facility] [address] [place], [address] Urea nitrogen [Mass/Vol] 12 mg/dL Normal 7-18 [facility] Comment on above: Performed By: #### L 100.0100, L500.4050, L501.9985 ####[facility] [address] [place], [address] Hemoglobin A1con 04-18-2024 HbA1c (Bld) [Mass fraction] 8.2 % High 3.8-5.6 [facility] Comment on above: Result Comment: Norm al < 5.7 % Prediabetic 5.7 - 6.4 % Diabetic >or= 6.5 % Please note range changes. Performed By: #### L 100.0100, L500.4050, L501.9985 ####[facility] [address] [place], [address] Absolute lymphocyte countOrd ered By: Sunny Bell on 12-30-2023 Lymphocytes Auto (Unsp spec) [#/Vol] 2.48 10*3/uL 0.83-4.51 [facility] Automated lymphocyte count a s percentage of total leukocytesOrdered By: Sunny Bell on 12-30-2023 Lymphocytes/100 WBC Auto (Unsp spec) 25.3 % 19-41 [facility] Basophil percentageOrdered B y: Sunny Bell on 12-30-2023 Basophils/100 WBC (Bld) 0.3 % 0-1 [facility] Chloride [Moles/Vol] 104 mmol/L 98-107 [facility] Eosinophils/100 WBC (Bld) 1.4 % 0-5 [facility] Glucose [Mass/Vol] 127 mg/dL 74-106 [facility] Comment on above: Fasting Glucose resu lt greater than or equal to 126 mg/dL suggests DIABETES MELLITUS per A.D.A. criteria. Hemoglobin (Bld) [Mass/Vol] 10.7 g/dL 12.0-15.0 [facility] Monocytes/100 WBC (Bld) 8.7 % 0-10 [facility] Neutrophils (Bld) [#/Vol] 6.3 10*3/uL 2.0-7.7 [facility] Neutrophils/100 WBC (Bld) 63.9 % 47-70 [facility] Potassium [Moles/Vol] 4.4 mmol/L 3.5-5.1 [facility] Sodium [Moles/Vol] 135 mmol/L 136-145 [facility] WBC (Bld) [#/Vol] 9.8 10*3/uL 4.4-11.0 [facility] Determination of erythrocyte mean corpuscular volume (MCV)Ordered By: Sunny Bell on 12-30-2023 MCV (RBC) [Entitic vol] 84.9 fL 81-99 [facility] Erythrocyte distribution wid th ratioOrdered By: Sunny Bell on 12-30-2023 Erythrocyte distribution width (RBC) [Ratio] 15.5 % 11.6-14.6 [facility] Erythrocyte distribution wid th standard deviationOrdered By: Sunny Bell on 12-30-2023 Erythrocyte distribution width (RBC) [Entitic vol] 47.9 fL 35.1-43.9 [facility] Hematocrit Auto (Bld) [Volum e fraction]Ordered By: Sunny Bell on 12-30-2023 Hematocrit (Bld) [Volume fraction] 33.8 % 37-47 [facility] Immature granulocytes/100 WB C Auto (Bld)Ordered By: Sunny Bell on 12-30-2023 Immature granulocytes/100 WBC (Bld) 0.400 % 0.0-0.9 [facility] Comment on above: IG% - Immature Granu locytes (promyelocytes, myelocytes and metamyelocytes) > 1% indicates that a LEFT SHIFT is Present. Laboratory - Chemistry and C hemistry - challengeOrdered By: Sunny Bell on 12-30-2023 CO2 [Moles/Vol] 27.0 mmol/L 21.0-32.0 [facility] Urea nitrogen/Creatinine [Mass ratio] 21.3 mg/mg 10-20 [facility] Laboratory - Hematology and Cell countsOrdered By: Sunny Bell on 12-30-2023 MCH (RBC) [Entitic mass] 26.9 pg 27.0-32.0 [facility] MCHC (RBC) [Mass/Vol] 31.7 g/dL 32-36 [facility] Nucleated RBC/100 WBC (Bld) [Ratio] 0 % 0-5 [facility] Platelet mean volume (Bld) [Entitic vol] 11.3 fL 6.2-12.0 [facility] Platelets (Bld) [#/Vol] 191 10*3/uL 150-450 [facility] No Panel InformationOrdered By: Sunny Bell on 12-30-2023 Estimated Creatinine Clearance Calc 40.01 ml/min [facility] Estimated GFR (MDRD) Amer 63 mL/min >60 [facility] Comment on above: GFR Calc Estimated GFR (MDRD) Non-Af Amer 52 mL/min >60 [facility] Comment on above: Non- GFR Calc RBC Auto (Bld) [#/Vol]Ordere d By: Sunny Bell on 12-30-2023 RBC (Bld) [#/Vol] 3.98 10*6/uL 4.2-5.4 [facility] Serum or plasma calcium melanie urement (mass/volume)Ordered By: Sunny Bell on 12-30-2023 Calcium [Mass/Vol] 11.3 mg/dL 8.5-10.1 [facility] Serum or plasma creatinine m easurement (mass/volume)Ordered By: Sunny Bell on 12-30-2023 Creatinine [Mass/Vol] 1.08 mg/dL 0.55-1.02 [facility] Comment on above: The validity of the calculated GFR & GFRAA in patients over 70 years has not been determined. Clinical correlation is essential. Serum or plasma urea nitroge n measurement (mass/volume)Ordered By: Sunny Bell on 12-30-2023 Urea nitrogen [Mass/Vol] 23 mg/dL 7-18 [facility] Thin prep Papanicolaou smear with manual screeningOrdered By: Sunny Bell on 12-30-2023 Thin prep Papanicolaou smear with manual screening 78 mg/dL 74-106 [facility] Comment on above: MANAGEMENT OF PATIEN T CARE PER NURSING PROTOCOL Thin prep Papanicolaou smear with manual screening 4 5-15 [facility] Basophil percentageOrdered B y: Sunny Bell on 12-28-2023 Basophil percentage 3.0 mg/dL 2.5-4.9 [facility] No Panel InformationOrdered By: Nestor Bartlett on 12-28-2023 Parathyroid Hormone (Intact) 177.6 pg/mL 18.4-80.1 [facility] Absolute lymphocyte countOrd ered By: Queta Cortez on 12-27-2023 Lymphocytes Auto (Unsp spec) [#/Vol] 3.04 10*3/uL 0.83-4.51 [facility] Activated partial thrombopla stin time (aPTT) in platelet poor plasma by coagulation aOrdered By: Queta Cortez on 12-27-2023 aPTT Coag (PPP) [Time] 27.3 s 24.1-36.2 [facility] Automated lymphocyte count a s percentage of total leukocytesOrdered By: Queta Cortez on 12-27-2023 Lymphocytes/100 WBC Auto (Unsp spec) 37.1 % 19-41 [facility] Basophil percentageOrdered B y: Queta Cortez on 12-27-2023 Basophils/100 WBC (Bld) 0.5 % 0-1 [facility] Chloride [Moles/Vol] 103 mmol/L 98-107 [facility] Eosinophils/100 WBC (Bld) 3.1 % 0-5 [facility] Glucose [Mass/Vol] 254 mg/dL 74-106 [facility] Comment on above: Glucose result great er than or equal to 200 mg/dLsuggests DIABETES MELLITUS per A.D.A. criteria. Hemoglobin (Bld) [Mass/Vol] 12.4 g/dL 12.0-15.0 [facility] Monocytes/100 WBC (Bld) 6.6 % 0-10 [facility] Neutrophils (Bld) [#/Vol] 4.2 10*3/uL 2.0-7.7 [facility] Neutrophils/100 WBC (Bld) 51.7 % 47-70 [facility] Potassium [Moles/Vol] 4.2 mmol/L 3.5-5.1 [facility] Sodium [Moles/Vol] 136 mmol/L 136-145 [facility] WBC (Bld) [#/Vol] 8.2 10*3/uL 4.4-11.0 [facility] Determination of erythrocyte mean corpuscular volume (MCV)Ordered By: Queta Cortez on 12-27-2023 MCV (RBC) [Entitic vol] 85.2 fL 81-99 [facility] Erythrocyte distribution wid th ratioOrdered By: Queta Cortez on 12-27-2023 Erythrocyte distribution width (RBC) [Ratio] 15.5 % 11.6-14.6 [facility] Erythrocyte distribution wid th standard deviationOrdered By: Queta Cortez on 12-27-2023 Erythrocyte distribution width (RBC) [Entitic vol] 47.0 fL 35.1-43.9 [facility] Hematocrit Auto (Bld) [Volum e fraction]Ordered By: Queta Cortez on 12-27-2023 Hematocrit (Bld) [Volume fraction] 39.8 % 37-47 [facility] Immature granulocytes/100 WB C Auto (Bld)Ordered By: Queta Cortez on 12-27-2023 Immature granulocytes/100 WBC (Bld) 1.000 % 0.0-0.9 [facility] Comment on above: IG% - Immature Granu locytes (promyelocytes, myelocytes and metamyelocytes) > 1% indicates that a LEFT SHIFT is Present. Laboratory - Chemistry and C hemistry - challengeOrdered By: Queta Cortez on 12-27-2023 CO2 [Moles/Vol] 29.0 mmol/L 21.0-32.0 [facility] Urea nitrogen/Creatinine [Mass ratio] 18.5 mg/mg 10-20 [facility] Laboratory - CoagulationOrde red By: Queta Cortez on 12-27-2023 INR Coag (Bld) [Relative time] 1.1 {INR} [facility] PT Coag (PPP) [Time] 13.7 s 11.7-14.9 [facility] Laboratory - Hematology and Cell countsOrdered By: Queta Cortez on 12-27-2023 MCH (RBC) [Entitic mass] 26.6 pg 27.0-32.0 [facility] MCHC (RBC) [Mass/Vol] 31.2 g/dL 32-36 [facility] Nucleated RBC/100 WBC (Bld) [Ratio] 0 % 0-5 [facility] Platelet mean volume (Bld) [Entitic vol] 11.5 fL 6.2-12.0 [facility] Platelets (Bld) [#/Vol] 237 10*3/uL 150-450 [facility] No Panel InformationOrdered By: Queta Cortez on 12-27-2023 Estimated Creatinine Clearance Calc 37.33 ml/min [facility] Estimated GFR (MDRD) Amer 56 mL/min >60 [facility] Comment on above: GFR Calc Estimated GFR (MDRD) Non-Af Amer 46 mL/min >60 [facility] Comment on above: Non- GFR Calc RBC Auto (Bld) [#/Vol]Ordere d By: Queta Cortez on 12-27-2023 RBC (Bld) [#/Vol] 4.67 10*6/uL 4.2-5.4 [facility] Serum or plasma calcium melanie urement (mass/volume)Ordered By: Queta Cortez on 12-27-2023 Calcium [Mass/Vol] 11.2 mg/dL 8.5-10.1 [facility] Serum or plasma creatinine m easurement (mass/volume)Ordered By: Queta Cortez on 12-27-2023 Creatinine [Mass/Vol] 1.19 mg/dL 0.55-1.02 [facility] Comment on above: The validity of the calculated GFR & GFRAA in patients over 70 years has not been determined. Clinical correlation is essential. Serum or plasma urea nitroge n measurement (mass/volume)Ordered By: Queta Cortez on 12-27-2023 Urea nitrogen [Mass/Vol] 22 mg/dL 7-18 [facility] Thin prep Papanicolaou smear with manual screeningOrdered By: Queta Cortez on 12-27-2023 Thin prep Papanicolaou smear with manual screening 4 5-15 [facility] Whole blood hemoglobin A1c/t otal hemoglobin ratio (mass fraction)Ordered By: Nestor Bartlett on 12-27-2023 HbA1c (Bld) [Mass fraction] 9.4 % 3.8-5.6 [facility] Comment on above: Normal < 5.7 % Predi abetic 5.7 - 6.4 % Diabetic >or= 6.5 % Please note range changes. Absolute lymphocyte countOrd ered By: Ramone Smiley on 10-26-2023 Lymphocytes Auto (Unsp spec) [#/Vol] 2.86 10*3/uL 0.83-4.51 [facility] Automated lymphocyte count a s percentage of total leukocytesOrdered By: Ramone Smiley on 10-26-2023 Lymphocytes/100 WBC Auto (Unsp spec) 31.9 % 19-41 [facility] Basophil percentageOrdered B y: Ramone Smiley on 10-26-2023 Basophils/100 WBC (Bld) 0.6 % 0-1 [facility] Bilirubin [Mass/Vol] 0.30 mg/dL 0.20-1.00 [facility] Comment on above: For patients on eltr ombopag therapy, use of Dimension [place] TBIL is not recommended. Chloride [Moles/Vol] 101 mmol/L 98-107 [facility] Eosinophils/100 WBC (Bld) 2.6 % 0-5 [facility] Glucose [Mass/Vol] 135 mg/dL 74-106 [facility] Comment on above: Fasting Glucose resu lt greater than or equal to 126 mg/dL suggests DIABETES MELLITUS per A.D.A. criteria. Hemoglobin (Bld) [Mass/Vol] 10.9 g/dL 12.0-15.0 [facility] Monocytes/100 WBC (Bld) 8.0 % 0-10 [facility] Neutrophils (Bld) [#/Vol] 5.1 10*3/uL 2.0-7.7 [facility] Neutrophils/100 WBC (Bld) 56.6 % 47-70 [facility] Potassium [Moles/Vol] 4.5 mmol/L 3.5-5.1 [facility] Protein [Mass/Vol] 8.6 g/dL 6.4-8.2 [facility] Sodium [Moles/Vol] 134 mmol/L 136-145 [facility] WBC (Bld) [#/Vol] 9.0 10*3/uL 4.4-11.0 [facility] Determination of erythrocyte mean corpuscular volume (MCV)Ordered By: Ramone Smiley on 10-26-2023 MCV (RBC) [Entitic vol] 85.8 fL 81-99 [facility] Erythrocyte distribution wid th ratioOrdered By: Ramone Smiley on 10-26-2023 Erythrocyte distribution width (RBC) [Ratio] 17.5 % 11.6-14.6 [facility] Erythrocyte distribution wid th standard deviationOrdered By: Ramone Smiley on 10-26-2023 Erythrocyte distribution width (RBC) [Entitic vol] 55.2 fL 35.1-43.9 [facility] Hematocrit Auto (Bld) [Volum e fraction]Ordered By: Ramone Smiley on 10-26-2023 Hematocrit (Bld) [Volume fraction] 36.2 % 37-47 [facility] Immature granulocytes/100 WB C Auto (Bld)Ordered By: Ramone Smiley on 10-26-2023 Immature granulocytes/100 WBC (Bld) 0.300 % 0.0-0.9 [facility] Comment on above: IG% - Immature Granu locytes (promyelocytes, myelocytes and metamyelocytes) > 1% indicates that a LEFT SHIFT is Present. Laboratory - Chemistry and C hemistry - challengeOrdered By: Ramone Smiley on 10-26-2023 Albumin/Globulin [Mass ratio] 0.6 {ratio} 0.9-2.4 [facility] ALP [Catalytic activity/Vol] 109 U/L 45-117 [facility] ALT [Catalytic activity/Vol] 17 U/L 13-56 [facility] CO2 [Moles/Vol] 27.0 mmol/L 21.0-32.0 [facility] Cobalamin (Vitamin B12) [Mass/Vol] 654 pg/mL 211-911 [facility] Ferritin [Mass/Vol] 99 ng/mL 8-252 [facility] Globulin (S) [Mass/Vol] 5.4 g/dL 2.2-4.2 [facility] Urea nitrogen/Creatinine [Mass ratio] 17.6 mg/mg 10-20 [facility] Laboratory - Hematology and Cell countsOrdered By: Ramone Smiley on 10-26-2023 MCH (RBC) [Entitic mass] 25.8 pg 27.0-32.0 [facility] MCHC (RBC) [Mass/Vol] 30.1 g/dL 32-36 [facility] Nucleated RBC/100 WBC (Bld) [Ratio] 0 % 0-5 [facility] Platelet mean volume (Bld) [Entitic vol] 11.6 fL 6.2-12.0 [facility] Platelets (Bld) [#/Vol] 268 10*3/uL 150-450 [facility] No Panel InformationOrdered By: Ramone Smiley on 10-26-2023 Estimated GFR (MDRD) Amer 67 mL/min >60 [facility] Comment on above: GFR Calc Estimated GFR (MDRD) Non-Af Amer 55 mL/min >60 [facility] Comment on above: Non- GFR Calc Folate 23.70 ng/mL 3.1-55.4 [facility] Vitamin D 25-Hydroxy 34.5 ng/mL [facility] Comment on above: Vitamin D 25(OH) Sta tus Range Deficiency <20 ng/mL (50nmol/L) Insufficiency 20 - 30 ng/mL (50 - 75 nmol/L) Sufficiency 30 - 100 ng/mL (75 - 250 nmol/L) Toxicity >100 ng/mL (>250 nmol/L) RBC Auto (Bld) [#/Vol]Ordere d By: Ramone Smiley on 10-26-2023 RBC (Bld) [#/Vol] 4.22 10*6/uL 4.2-5.4 [facility] Serum or plasma calcium melanie urement (mass/volume)Ordered By: Ramone Smiley on 10-26-2023 Calcium [Mass/Vol] 11.2 mg/dL 8.5-10.1 [facility] Serum or plasma creatinine m easurement (mass/volume)Ordered By: Ramone Smiley on 10-26-2023 Creatinine [Mass/Vol] 1.02 mg/dL 0.55-1.02 [facility] Comment on above: The validity of the calculated GFR & GFRAA in patients over 70 years has not been determined. Clinical correlation is essential. Serum or plasma thyroid stim ulating hormone (TSH) measurement (units/volume)Ordered By: Ramone Smiley on 10-26-2023 TSH Qn 0.66 uIU/mL 0.358-3.74 [facility] Serum or plasma urea nitroge n measurement (mass/volume)Ordered By: Ramone Smiley on 10-26-2023 Urea nitrogen [Mass/Vol] 18 mg/dL 7-18 [facility] Thin prep Papanicolaou smear with manual screeningOrdered By: Ramone Smiley on 10-26-2023 Thin prep Papanicolaou smear with manual screening 3.2 g/dL 3.2-5.0 [facility] Thin prep Papanicolaou smear with manual screening 18 U/L 15-37 [facility] Thin prep Papanicolaou smear with manual screening 6 5-15 [facility] Whole blood hemoglobin A1c/t otal hemoglobin ratio (mass fraction)Ordered By: Ramone Smiley on 10-26-2023 HbA1c (Bld) [Mass fraction] 8.2 % 3.8-5.6 [facility] Comment on above: Normal < 5.7 % Predi abetic 5.7 - 6.4 % Diabetic >or= 6.5 % Please note range changes. Basophil percentageOrdered B y: Nestor Bartlett on 08-17-2023 Chloride [Moles/Vol] 105 mmol/L 98-107 [facility] Glucose [Mass/Vol] 167 mg/dL 74-106 [facility] Comment on above: Fasting Glucose resu lt greater than or equal to 126 mg/dL suggests DIABETES MELLITUS per A.D.A. criteria. Potassium [Moles/Vol] 4.9 mmol/L 3.5-5.1 [facility] Sodium [Moles/Vol] 139 mmol/L 136-145 [facility] WBC (Bld) [#/Vol] 8.4 10*3/uL 4.4-11.0 [facility] Blood erythrocytes count (nu mber/volume)Ordered By: Nestor Bartlett on 08-17-2023 RBC (Bld) [#/Vol] 3.41 10*6/uL 4.2-5.4 [facility] Blood hemoglobin measurement (mass/volume)Ordered By: Nestor Bartlett on 08-17-2023 Hemoglobin (Bld) [Mass/Vol] 8.9 g/dL 12.0-15.0 [facility] Blood platelet mean volumeOr dered By: Nestor Bartlett on 08-17-2023 Platelet mean volume (Bld) [Entitic vol] 10.4 fL 6.2-12.0 [facility] Determination of erythrocyte mean corpuscular volume (MCV)Ordered By: Nestor Bartlett on 08-17-2023 MCV (RBC) [Entitic vol] 84.5 fL 81-99 [facility] Glucose Glucometer (BldC) [M ass/Vol]Ordered By: Sandeep Denson on 08-17-2023 Glucose [Mass/Vol] 267 mg/dL 74-106 [facility] Comment on above: MANAGEMENT OF PATIEN T CARE PER NURSING PROTOCOL Hematocrit Auto (Bld) [Volum e fraction]Ordered By: Nestor Barteltt on 08-17-2023 Hematocrit (Bld) [Volume fraction] 28.8 % 37-47 [facility] Laboratory - Chemistry and C hemistry - challengeOrdered By: Nestor Bartlett on 08-17-2023 CO2 [Moles/Vol] 30.0 mmol/L 21.0-32.0 [facility] Urea nitrogen/Creatinine [Mass ratio] 19.9 mg/mg 10-20 [facility] Laboratory - Hematology and Cell countsOrdered By: Nestor Bartlett on 08-17-2023 Erythrocyte distribution width (RBC) [Entitic vol] 55.6 fL 35.1-43.9 [facility] Erythrocyte distribution width (RBC) [Ratio] 17.9 % 11.6-14.6 [facility] MCH (RBC) [Entitic mass] 26.1 pg 27.0-32.0 [facility] MCHC Auto (RBC) [Mass/Vol]Or dered By: Nestor Bartlett on 08-17-2023 MCHC (RBC) [Mass/Vol] 30.9 g/dL 32-36 [facility] No Panel InformationOrdered By: Nestor Bartlett on 08-17-2023 Estimated Creatinine Clearance Calc 41.47 ml/min [facility] Estimated GFR (MDRD) Amer 77 mL/min >60 [facility] Comment on above: GFR Calc Estimated GFR (MDRD) Non-Af Amer 64 mL/min >60 [facility] Comment on above: Non- GFR Calc Platelets bldOrdered By: Neida Bartlett on 08-17-2023 Platelets (Bld) [#/Vol] 480 10*3/uL 150-450 [facility] Serum or plasma calcium melanie urement (mass/volume)Ordered By: Nestor Bartlett on 08-17-2023 Calcium [Mass/Vol] 10.6 mg/dL 8.5-10.1 [facility] Serum or plasma creatinine m easurement (mass/volume)Ordered By: Nestor Bartlett on 08-17-2023 Creatinine [Mass/Vol] 0.91 mg/dL 0.55-1.02 [facility] Comment on above: The validity of the calculated GFR & GFRAA in patients over 70 years has not been determined. Clinical correlation is essential. Serum or plasma urea nitroge n measurement (mass/volume)Ordered By: Nestor Bartlett on 08-17-2023 Urea nitrogen [Mass/Vol] 18 mg/dL 7-18 [facility] Thin prep Papanicolaou smear with manual screeningOrdered By: Nestor Bartlett on 08-17-2023 Thin prep Papanicolaou smear with manual screening 4 5-15 [facility] Absolute lymphocyte countOrd ered By: Heydi Amaya on 08-14-2023 Lymphocytes Auto (Unsp spec) [#/Vol] 1.25 10*3/uL 0.83-4.51 [facility] Basophil percentageOrdered B y: Heydi Amaya on 08-14-2023 Basophil percentage 1.7 mg/dL 2.5-4.9 [facility] Basophils/100 WBC (Bld) 0.3 % 0-1 [facility] Eosinophils/100 WBC (Bld) 0.6 % 0-5 [facility] Neutrophils (Bld) [#/Vol] 9.0 10*3/uL 2.0-7.7 [facility] Neutrophils/100 WBC (Bld) 79.7 % 47-70 [facility] Blood lymphocytes/100 leukoc ytesOrdered By: Heydi Amaya on 08-14-2023 Lymphocytes/100 WBC (Bld) 11.1 % 19-41 [facility] Blood monocytes/100 leukocyt esOrdered By: Heydi Amaya on 08-14-2023 Monocytes/100 WBC (Bld) 6.1 % 0-10 [facility] Iron measurement (mass/mass) Ordered By: Nestor Bartlett on 08-14-2023 Iron (Unsp spec) [Mass/Mass] 14 ug/dL 50-170 [facility] Laboratory - Chemistry and C hemistry - challengeOrdered By: Nestor Bartlett on 08-14-2023 Cobalamin (Vitamin B12) [Mass/Vol] 250 pg/mL 211-911 [facility] Laboratory - Chemistry and C hemistry - challengeOrdered By: Heydi Amaya on 08-14-2023 Free T4 [Mass/Vol] 1.51 ng/dL 0.76-1.46 [facility] Magnesium [Mass/Vol] 2.1 mg/dL 1.6-2.6 [facility] Laboratory - Hematology and Cell countsOrdered By: Heydi Amaya on 08-14-2023 Immature granulocytes/100 WBC (Bld) 2.200 % 0.0-0.9 [facility] Comment on above: IG% - Immature Granu locytes (promyelocytes, myelocytes and metamyelocytes) > 1% indicates that a LEFT SHIFT is Present. Nucleated RBC/100 WBC (Bld) [Ratio] 0 % 0-5 [facility] No Panel InformationOrdered By: Heydi Amaya on 08-14-2023 Free Triiodothyronine (T3) pg/dL 1.9 pg/mL 2.18-3.98 [facility] Parathyroid Hormone (Intact) 153.7 pg/mL 18.4-80.1 [facility] Thyroid Stimulating Hormone (TSH) 0.01 uIU/mL 0.358-3.74 [facility] Vitamin D 25-Hydroxy 39.9 ng/mL [facility] Comment on above: Vitamin D 25(OH) Sta tus Range Deficiency <20 ng/mL (50nmol/L) Insufficiency 20 - 30 ng/mL (50 - 75 nmol/L) Sufficiency 30 - 100 ng/mL (75 - 250 nmol/L) Toxicity >100 ng/mL (>250 nmol/L) No Panel InformationOrdered By: Nestor Bartlett on 08-14-2023 Total Iron Binding Capacity 197 ug/dL 250-450 [facility] Serum or plasma ferritin rubina surement (mass/volume)Ordered By: Nestor Bartlett on 08-14-2023 Ferritin [Mass/Vol] 1578 ng/mL 8-252 [facility] Serum or plasma folate measu rement (mass/volume)Ordered By: Nestor Bartlett on 08-14-2023 Folate [Mass/Vol] 2.90 ng/mL 3.1-55.4 [facility] Serum or plasma iron saturat ion measurement (mass fraction)Ordered By: Nestor Bartlett on 12-15-2023 Iron saturation [Mass fraction] 7.1 % 15.0-55.0 [facility] Thin prep Papanicolaou smear with manual screeningOrdered By: Heydi Amaya on 08-14-2023 Thin prep Papanicolaou smear with manual screening 285 mOsm/KG 280-301 [facility] Absolute lymphocyte countOrd ered By: Robert Allison on 08-13-2023 Lymphocytes Auto (Unsp spec) [#/Vol] 1.37 10*3/uL 0.83-4.51 [facility] Basophil percentageOrdered B y: Robert Allison on 08-13-2023 Basophil percentage 10-25 SEEN /hpf 0-5 [facility] Lactate [Moles/Vol] 1.2 mmol/L 0.4-2.0 [facility] Basophils/100 WBC (Bld) 0.3 % 0-1 [facility] Bilirubin [Mass/Vol] 0.60 mg/dL 0.20-1.00 [facility] Comment on above: For patients on eltr ombopag therapy, use of Dimension [place] TBIL is not recommended. Chloride [Moles/Vol] 92 mmol/L 98-107 [facility] Eosinophils/100 WBC (Bld) 0.1 % 0-5 [facility] Glucose [Mass/Vol] 212 mg/dL 74-106 [facility] Comment on above: Glucose result great er than or equal to 200 mg/dLsuggests DIABETES MELLITUS per A.D.A. criteria. Neutrophils (Bld) [#/Vol] 12.1 10*3/uL 2.0-7.7 [facility] Neutrophils/100 WBC (Bld) 82.7 % 47-70 [facility] Potassium [Moles/Vol] 3.8 mmol/L 3.5-5.1 [facility] Comment on above: Moderate Hemolysis, Result may be falsely increased. Protein [Mass/Vol] 7.8 g/dL 6.4-8.2 [facility] Sodium [Moles/Vol] 127 mmol/L 136-145 [facility] WBC (Bld) [#/Vol] 14.7 10*3/uL 4.4-11.0 [facility] Bilirubin Test strip Ql (U)O rdered By: Robert Allison on 08-13-2023 Bilirubin Ql (U) Negative Negative [facility] Blood erythrocytes count (nu mber/volume)Ordered By: Robert Allison on 08-13-2023 RBC (Bld) [#/Vol] 3.83 10*6/uL 4.2-5.4 [facility] Blood hemoglobin measurement (mass/volume)Ordered By: Robert Allison on 08-13-2023 Hemoglobin (Bld) [Mass/Vol] 10.0 g/dL 12.0-15.0 [facility] Blood lymphocytes/100 leukoc ytesOrdered By: Robert Allison on 08-13-2023 Lymphocytes/100 WBC (Bld) 9.4 % 19-41 [facility] Blood monocytes/100 leukocyt esOrdered By: Robert Allison on 08-13-2023 Monocytes/100 WBC (Bld) 6.1 % 0-10 [facility] Blood platelet mean volumeOr dered By: Robert Allison on 08-13-2023 Platelet mean volume (Bld) [Entitic vol] 10.8 fL 6.2-12.0 [facility] Culture, urineOrdered By: Ester Allison on 08-13-2023 Bacteria identified Cx Nom (U) Klebsiella pneumoniae sp pneum [facility] Determination of erythrocyte mean corpuscular volume (MCV)Ordered By: Robert Allison on 08-13-2023 MCV (RBC) [Entitic vol] 85.1 fL 81-99 [facility] Hematocrit Auto (Bld) [Volum e fraction]Ordered By: Robert Allison on 08-13-2023 Hematocrit (Bld) [Volume fraction] 32.6 % 37-47 [facility] Influenza virus A and B and SARS-CoV-2 (COVID-19) Ag panel - Upper respiratory specimOrdered By: Robert Allison on 08-13-2023 SARS-CoV-2 (COVID-19) RNA BEBETO+probe Ql (Resp) [facility] Ketones Test strip Ql (U)Ord ered By: Robert Allison on 08-13-2023 Ketones Ql (U) 50 mg/dl Negative [facility] Laboratory - Chemistry and C hemistry - challengeOrdered By: Heydi Amaya on 08-13-2023 Sodium (U) [Moles/Vol] 24 mmol/L Not Establ. [facility] Laboratory - Chemistry and C hemistry - challengeOrdered By: Robert Allison on 08-13-2023 ALP [Catalytic activity/Vol] 105 U/L 45-117 [facility] ALT [Catalytic activity/Vol] 29 U/L 13-56 [facility] CO2 [Moles/Vol] 23.0 mmol/L 21.0-32.0 [facility] Globulin (S) [Mass/Vol] 5.6 g/dL 2.2-4.2 [facility] Urea nitrogen/Creatinine [Mass ratio] 26.3 mg/mg 10-20 [facility] Laboratory - Hematology and Cell countsOrdered By: Robert Allison on 08-13-2023 Erythrocyte distribution width (RBC) [Entitic vol] 53.7 fL 35.1-43.9 [facility] Erythrocyte distribution width (RBC) [Ratio] 17.2 % 11.6-14.6 [facility] Immature granulocytes/100 WBC (Bld) 1.400 % 0.0-0.9 [facility] Comment on above: IG% - Immature Granu locytes (promyelocytes, myelocytes and metamyelocytes) > 1% indicates that a LEFT SHIFT is Present. MCH (RBC) [Entitic mass] 26.1 pg 27.0-32.0 [facility] Nucleated RBC/100 WBC (Bld) [Ratio] 0 % 0-5 [facility] Laboratory - Microbiology an d Antimicrobial susceptibilityOrdered By: Robert Allison on 08-13-2023 Bacteria identified Cx Nom (Bld) GNR lactose back padder [facility] MCHC Auto (RBC) [Mass/Vol]Or dered By: Robert Allison on 08-13-2023 MCHC (RBC) [Mass/Vol] 30.7 g/dL 32-36 [facility] Mucus LM Ql (Urine sed)Order ed By: Robert Allison on 08-13-2023 Mucus Ql (Urine sed) 0 SEEN /hpf [facility] Nitrite Test strip Ql (U)Ord ered By: Robert Allison on 08-13-2023 Nitrite Ql (U) Negative Negative [facility] No Panel InformationOrdered By: Heydi Amaya on 08-13-2023 Urine Potassium 8.0 mmol/L Not Establ. [facility] Urine Urea Nitrogen 334 mg/dL NO RANGE EST. [facility] No Panel InformationOrdered By: Robert Espinomasood on 08-13-2023 Estimated Creatinine Clearance Calc 31.98 ml/min [facility] Estimated GFR (MDRD) Amer 57 mL/min >60 [facility] Comment on above: GFR Calc Estimated GFR (MDRD) Non-Af Amer 47 mL/min >60 [facility] Comment on above: Non- GFR Calc Troponin I High Sensitivity 39 pg/mL 3.0-54.0 [facility] Comment on above: Please Note: New Rosi t Units and Gender Specific Reference Ranges. For more information see Policy Stat Procedure [place] High Sensitivity Troponin (TNIH) and attachments. Platelets bldOrdered By: Harriet Espinomasood on 08-13-2023 Platelets (Bld) [#/Vol] 412 10*3/uL 150-450 [facility] Protein Test strip Ql (U)Ord ered By: Robert Espinomasood on 08-13-2023 Protein Ql (U) 30 mg/dl Negative [facility] Serum or plasma albumin melanie urement (mass/volume)Ordered By: Robert Espinomasood on 08-13-2023 Albumin [Mass/Vol] 2.2 g/dL 3.2-5.0 [facility] Serum or plasma albumin/glob ulin mass ratioOrdered By: [facility] on 08-13-2023 Albumin/Globulin [Mass ratio] 0.4 {ratio} 0.9-2.4 [facility] Serum or plasma calcium melanie urement (mass/volume)Or[facility] By: [facility] on 08-13-2023 Calcium [Mass/Vol] 10.5 mg/dL 8.5-10.1 [facility] Serum or plasma creatinine m easurement (mass/volume)Ordered By: [facility] on 08-13-2023 Creatinine [Mass/Vol] 1.18 mg/dL 0.55-1.02 [facility] Comment on above: The validity of the calculated GFR & GFRAA in patients over 70 years has not been determined. Clinical correlation is essential. Serum or plasma urea nitroge n measurement (mass/volume)Ordered By: Robert Allison on 08-13-2023 Urea nitrogen [Mass/Vol] 31 mg/dL 7-18 [facility] Squamous epithelial cells de tection in urine sediment by light microscopyOrdered By: Robert Allison on 08-13-2023 Epithelial cells.squamous LM Ql (Urine sed) 0 SEEN /hpf 5-10 [facility] Thin prep Papanicolaou smear with manual screeningOrdered By: Heydi Amaya on 08-13-2023 Thin prep Papanicolaou smear with manual screening 20 mmol/L Not Establ. [facility] Thin prep Papanicolaou smear with manual screeningOrdered By: Robert Allison on 08-13-2023 Thin prep Papanicolaou smear with manual screening 36 U/L [facility] Comment on above: Moderate Hemolysis, Result may be falsely increased. Thin prep Papanicolaou smear with manual screening 01-12 [facility] Upper respiratory specimen i nfluenza A virus, influenza B virus, and severe acute resOrdered By: Robert Allison on 08-13-2023 Upper respiratory specimen influenza A virus, influenza B virus, and severe acute res [facility] Urine blood detectionOrdered By: Robert Allison on 08-13-2023 RBC Ql (U) 50 /ul Negative [facility] RBC Ql (U) 0-5 SEEN /hpf 0-5 [facility] Urine clarityOrdered By: Harriet Allison on 08-13-2023 Clarity (U) Sl. Cloudy Clear [facility] Urine color determinationOrd ered By: Robert Allison on 08-13-2023 Color (U) Yellow Yellow [facility] Urine creatinine measurement (mass/volume)Ordered By: Heydi Amaya on 08-13-2023 Creatinine (U) [Mass/Vol] 37.60 mg/dL NO RANGE EST. [facility] Urine glucose detectionOrder ed By: Robert Allison on 08-13-2023 Glucose Ql (U) 1000 mg/dl Normal [facility] Urine leukocyte esterase det ection by dipstickOrdered By: Robert Allison on 08-13-2023 Leukocyte esterase Test strip Ql (U) 500 /ul Negative [facility] Urine osmolality measurement Ordered By: Heydi Amaya on 08-13-2023 Osmolality (U) [Osmolality] 269 mOsm/KG >50 [facility] Comment on above: Normal Urine Referen ce Ranges Random: 50 - 1200 mOsm/kg H20 depending on fluid intake Random: >850 mOsm/kg after 12 hour fluid restriction 24 hour: ~300 - 900 mOsm/kg H2O Urine pHOrdered By: Robert latifr on 08-13-2023 pH (U) 5.0 [pH] 5.0 - 8.0 [facility] Urine sediment bacteria coun t by microscopy (number/high power field)Ordered By: Robert Allison on 08-13-2023 Bacteria LM.HPF (Urine sed) [#/Area] 3 /[HPF] None Seen [facility] Urine specific gravity measu rementOrdered By: Robert Allison on 08-13-2023 Specific gravity (U) [Rel density] 1.015 1.002-1.030 [facility] Urobilinogen Auto test strip Ql (U)Ordered By: Robert Allison on 08-13-2023 Urobilinogen Ql (U) Normal mg/dl Normal [facility] Absolute lymphocyte countOrd ered By: Winston Gill on 07-18-2023 Lymphocytes Auto (Unsp spec) [#/Vol] 0.92 10*3/uL 0.83-4.51 [facility] Basophil percentageOrdered B y: Winston Gill on 07-18-2023 Basophil percentage >100 SEEN /hpf 0-5 [facility] Basophils/100 WBC (Bld) 0.4 % 0-1 [facility] Bilirubin [Mass/Vol] 0.40 mg/dL 0.20-1.00 [facility] Comment on above: For patients on eltr ombopag therapy, use of Dimension [place] TBIL is not recommended. Chloride [Moles/Vol] 95 mmol/L 98-107 [facility] Eosinophils/100 WBC (Bld) 0.7 % 0-5 [facility] Glucose [Mass/Vol] 139 mg/dL 74-106 [facility] Comment on above: Fasting Glucose resu lt greater than or equal to 126 mg/dL suggests DIABETES MELLITUS per A.D.A. criteria. Neutrophils (Bld) [#/Vol] 5.4 10*3/uL 2.0-7.7 [facility] Neutrophils/100 WBC (Bld) 76.5 % 47-70 [facility] Potassium [Moles/Vol] 3.7 mmol/L 3.5-5.1 [facility] Protein [Mass/Vol] 7.4 g/dL 6.4-8.2 [facility] Sodium [Moles/Vol] 131 mmol/L 136-145 [facility] WBC (Bld) [#/Vol] 7.0 10*3/uL 4.4-11.0 [facility] Bilirubin Test strip Ql (U)O rdered By: Winston Gill on 07-18-2023 Bilirubin Ql (U) Negative Negative [facility] Blood erythrocytes count (nu mber/volume)Ordered By: Winston Gill on 07-18-2023 RBC (Bld) [#/Vol] 3.85 10*6/uL 4.2-5.4 [facility] Blood hemoglobin measurement (mass/volume)Ordered By: Winston Gill on 07-18-2023 Hemoglobin (Bld) [Mass/Vol] 10.8 g/dL 12.0-15.0 [facility] Blood lymphocytes/100 leukoc ytesOrdered By: Winston Gill on 07-18-2023 Lymphocytes/100 WBC (Bld) 13.1 % 19-41 [facility] Blood monocytes/100 leukocyt esOrdered By: Winston Gill on 07-18-2023 Monocytes/100 WBC (Bld) 8.0 % 0-10 [facility] Blood platelet mean volumeOr dered By: Winston Gill on 07-18-2023 Platelet mean volume (Bld) [Entitic vol] 10.0 fL 6.2-12.0 [facility] Culture, urineOrdered By: Devyn Rea on 07-18-2023 Bacteria identified Cx Nom (U) Escherichia coli [facility] Bacteria identified Cx Nom (U) Klebsiella pneumoniae sp pneum [facility] Determination of erythrocyte mean corpuscular volume (MCV)Ordered By: Winston Gill on 07-18-2023 MCV (RBC) [Entitic vol] 87.0 fL 81-99 [facility] Hematocrit Auto (Bld) [Volum e fraction]Ordered By: Winston Gill on 07-18-2023 Hematocrit (Bld) [Volume fraction] 33.5 % 37-47 [facility] Ketones Test strip Ql (U)Ord ered By: Winston Gill on 07-18-2023 Ketones Ql (U) 50 mg/dl Negative [facility] Laboratory - Chemistry and C hemistry - challengeOrdered By: Winston Gill on 07-18-2023 ALP [Catalytic activity/Vol] 93 U/L 45-117 [facility] ALT [Catalytic activity/Vol] 13 U/L 13-56 [facility] CO2 [Moles/Vol] 27.0 mmol/L 21.0-32.0 [facility] Globulin (S) [Mass/Vol] 4.8 g/dL 2.2-4.2 [facility] Urea nitrogen/Creatinine [Mass ratio] 15.6 mg/mg 10-20 [facility] Laboratory - Hematology and Cell countsOrdered By: Winston Gill on 07-18-2023 Erythrocyte distribution width (RBC) [Entitic vol] 52.4 fL 35.1-43.9 [facility] Erythrocyte distribution width (RBC) [Ratio] 16.4 % 11.6-14.6 [facility] Immature granulocytes/100 WBC (Bld) 1.300 % 0.0-0.9 [facility] Comment on above: IG% - Immature Granu locytes (promyelocytes, myelocytes and metamyelocytes) > 1% indicates that a LEFT SHIFT is Present. MCH (RBC) [Entitic mass] 28.1 pg 27.0-32.0 [facility] Nucleated RBC/100 WBC (Bld) [Ratio] 0 % 0-5 [facility] MCHC Auto (RBC) [Mass/Vol]Or dered By: Winston Gill on 07-18-2023 MCHC (RBC) [Mass/Vol] 32.2 g/dL 32-36 [facility] Mucus LM Ql (Urine sed)Order ed By: Winston Gill on 07-18-2023 Mucus Ql (Urine sed) 0 SEEN /hpf [facility] Nitrite Test strip Ql (U)Ord ered By: Winston Gill on 07-18-2023 Nitrite Ql (U) Negative Negative [facility] No Panel InformationOrdered By: Winston Gill on 07-18-2023 Estimated Creatinine Clearance Calc 45.46 ml/min [facility] Estimated GFR (MDRD) Amer 85 mL/min >60 [facility] Comment on above: GFR Calc Estimated GFR (MDRD) Non-Af Amer 70 mL/min >60 [facility] Comment on above: Non- GFR Calc Platelets bldOrdered By: Pet richar Jairo on 07-18-2023 Platelets (Bld) [#/Vol] 370 10*3/uL 150-450 [facility] Protein Test strip Ql (U)Ord ered By: Winston Gill on 07-18-2023 Protein Ql (U) 100 mg/dl Negative [facility] Serum or plasma albumin melanie urement (mass/volume)Ordered By: Winston Gill on 07-18-2023 Albumin [Mass/Vol] 2.6 g/dL 3.2-5.0 [facility] Serum or plasma albumin/glob ulin mass ratioOrdered By: Winston Gill on 07-18-2023 Albumin/Globulin [Mass ratio] 0.5 {ratio} 0.9-2.4 [facility] Serum or plasma calcium melanie urement (mass/volume)Ordered By: Winston Gill on 07-18-2023 Calcium [Mass/Vol] 10.3 mg/dL 8.5-10.1 [facility] Serum or plasma creatinine m easurement (mass/volume)Ordered By: Winston Gill on 07-18-2023 Creatinine [Mass/Vol] 0.83 mg/dL 0.55-1.02 [facility] Comment on above: The validity of the calculated GFR & GFRAA in patients over 70 years has not been determined. Clinical correlation is essential. Serum or plasma urea nitroge n measurement (mass/volume)Ordered By: Winston Gill on 07-18-2023 Urea nitrogen [Mass/Vol] 13 mg/dL - [facility] Squamous epithelial cells de tection in urine sediment by light microscopyOrdered By: Winston Gill on 07-18-2023 Epithelial cells.squamous LM Ql (Urine sed) 5-10 SEEN /hpf 5-10 [facility] Thin prep Papanicolaou smear with manual screeningOrdered By: Winston Gill on 11-18-2023 Thin prep Papanicolaou smear with manual screening 26 U/L 15-37 [facility] Thin prep Papanicolaou smear with manual screening 9 5-15 [facility] Urine blood detectionOrdered By: Winston Gill on 07-18-2023 RBC Ql (U) 50 /ul Negative [facility] RBC Ql (U) 0-5 SEEN /hpf 0-5 [facility] Urine clarityOrdered By: Pet richar Gill on 07-18-2023 Clarity (U) Cloudy Clear [facility] Urine color determinationOrd ered By: Winston Gill on 07-18-2023 Color (U) Yellow Yellow [facility] Urine glucose detectionOrder ed By: Winston Gill on 07-18-2023 Glucose Ql (U) 1000 mg/dl Normal [facility] Urine leukocyte esterase det ection by dipstickOrdered By: Winston Gill on 07-18-2023 Leukocyte esterase Test strip Ql (U) 500 /ul Negative [facility] Urine pHOrdered By: Winston castillo on 07-18-2023 pH (U) 5.0 [pH] 5.0 - 8.0 [facility] Urine sediment bacteria coun t by microscopy (number/high power field)Ordered By: Winston Gill on 07-18-2023 Bacteria LM.HPF (Urine sed) [#/Area] 3 /[HPF] None Seen [facility] Urine sediment leukocyte lisandro t count by microscopy (number/low power field)Ordered By: Winston Gill on 07-18-2023 WBC casts LM.LPF (Urine sed) [#/Area] 0-5 SEEN /lpf None Seen [facility] Urine specific gravity measu rementOrdered By: Winston Gill on 07-18-2023 Specific gravity (U) [Rel density] 1.020 1.002-1.030 [facility] Urobilinogen Auto test strip Ql (U)Ordered By: Winston Gill on 07-18-2023 Urobilinogen Ql (U) 1 mg/dl Normal [facility] No Panel Informationon 07-15 POC SARS CoV-2 Antigen Negative [facility] Amorphous sediment detection in urine sediment by light microscopyOrdered By: Cheryl Mendez on 06-01-2023 Amorphous sediment LM Ql (Urine sed) 1+ URATE [facility] Basophil percentageOrdered B y: Cheryl Mendez on 06-01-2023 Basophil percentage 5-10 SEEN /hpf 0-5 [facility] Bilirubin Test strip Ql (U)O rdered By: Cheryl Mendez on 06-01-2023 Bilirubin Ql (U) Negative Negative [facility] Ketones Test strip Ql (U)Ord ered By: Cheryl Mendez on 06-01-2023 Ketones Ql (U) Negative Negative [facility] Mucus LM Ql (Urine sed)Order ed By: Cheryl Mendez on 06-01-2023 Mucus Ql (Urine sed) 0 SEEN /hpf [facility] Nitrite Test strip Ql (U)Ord ered By: Cheryl Mendez on 06-01-2023 Nitrite Ql (U) Negative Negative [facility] No Panel InformationOrdered By: hCeryl Mendez on 06-01-2023 Urine Microalbumin/Creatinine Ratio 173.1 mg/g CRE <30 [facility] Protein Test strip Ql (U)Ord ered By: Cheryl Mendez on 06-01-2023 Protein Ql (U) 15 mg/dl Negative [facility] Squamous epithelial cells de tection in urine sediment by light microscopyOrdered By: Cheryl Mendez on 06-01-2023 Epithelial cells.squamous LM Ql (Urine sed) 0-5 SEEN /hpf 5-10 [facility] Thin prep Papanicolaou smear with manual screeningOrdered By: Cheryl Mendez on 06-01-2023 Thin prep Papanicolaou smear with manual screening 98.3 mg/L NO RANGE EST. [facility] Urine blood detectionOrdered By: Cheryl Mendez on 06-01-2023 RBC Ql (U) 25 /ul Negative [facility] RBC Ql (U) 0-5 SEEN /hpf 0-5 [facility] Urine clarityOrdered By: Dyana Mendez on 06-01-2023 Clarity (U) Cloudy Clear [facility] Urine color determinationOrd ered By: Cheryl Mendez on 06-01-2023 Color (U) Yellow Yellow [facility] Urine creatinine measurement (mass/volume)Ordered By: Cheryl Mendez on 06-01-2023 Creatinine (U) [Mass/Vol] 56.80 mg/dL NO RANGE EST. [facility] Urine glucose detectionOrder ed By: Cheryl Mendez on 06-01-2023 Glucose Ql (U) 1000 mg/dl Normal [facility] Urine leukocyte esterase det ection by dipstickOrdered By: Cheryl Mendez on 06-01-2023 Leukocyte esterase Test strip Ql (U) 100 /ul Negative [facility] Urine pHOrdered By: Nikki Mendez on 06-01-2023 pH (U) 5.0 [pH] 5.0 - 8.0 [facility] Urine sediment bacteria coun t by microscopy (number/high power field)Ordered By: Cheryl Mendez on 06-01-2023 Bacteria LM.HPF (Urine sed) [#/Area] 3 /[HPF] None Seen [facility] Urine specific gravity measu rementOrdered By: Cheryl Mendez on 06-01-2023 Specific gravity (U) [Rel density] 1.015 1.002-1.030 [facility] Urobilinogen Auto test strip Ql (U)Ordered By: Cheryl Mendez on 06-01-2023 Urobilinogen Ql (U) Normal mg/dl Normal [facility] Basophil percentageOrdered B y: Cheryl Mendez on 05-27-2023 Basophil percentage 2.7 mg/dL 2.5-4.9 [facility] Chloride [Moles/Vol] 102 mmol/L 98-107 [facility] Glucose [Mass/Vol] 220 mg/dL 74-106 [facility] Comment on above: Glucose result great er than or equal to 200 mg/dLsuggests DIABETES MELLITUS per A.D.A. criteria. Potassium [Moles/Vol] 3.9 mmol/L 3.5-5.1 [facility] Sodium [Moles/Vol] 137 mmol/L 136-145 [facility] Laboratory - Chemistry and C hemistry - challengeOrdered By: Cheryl Mendez on 05-27-2023 CO2 [Moles/Vol] 28.0 mmol/L 21.0-32.0 [facility] Urea nitrogen/Creatinine [Mass ratio] 10.0 mg/mg 10-20 [facility] No Panel InformationOrdered By: Cheryl Mendez on 05-27-2023 Estimated GFR (MDRD) Amer 89 mL/min >60 [facility] Comment on above: GFR Calc Estimated GFR (MDRD) Non-Af Amer 73 mL/min >60 [facility] Comment on above: Non- GFR Calc Parathyroid Hormone (Intact) 164.3 pg/mL 18.4-80.1 [facility] Vitamin D 25-Hydroxy 45.4 ng/mL [facility] Comment on above: Vitamin D 25(OH) Sta tus Range Deficiency <20 ng/mL (50nmol/L) Insufficiency 20 - 30 ng/mL (50 - 75 nmol/L) Sufficiency 30 - 100 ng/mL (75 - 250 nmol/L) Toxicity >100 ng/mL (>250 nmol/L) Serum or plasma albumin melanie urement (mass/volume)Ordered By: Cheryl Mendez on 05-27-2023 Albumin [Mass/Vol] 2.9 g/dL 3.2-5.0 [facility] Serum or plasma calcium melanie urement (mass/volume)Ordered By: Cheryl Mendez on 05-27-2023 Calcium [Mass/Vol] 10.7 mg/dL 8.5-10.1 [facility] Serum or plasma creatinine m easurement (mass/volume)Ordered By: Cheryl Mendez on 05-27-2023 Creatinine [Mass/Vol] 0.80 mg/dL 0.55-1.02 [facility] Comment on above: The validity of the calculated GFR & GFRAA in patients over 70 years has not been determined. Clinical correlation is essential. Serum or plasma urea nitroge n measurement (mass/volume)Ordered By: Cheryl Mendez on 05-27-2023 Urea nitrogen [Mass/Vol] 8 mg/dL 7-18 [facility] Culture, urineOrdered By: Allan Anguiano on 03-24-2023 Bacteria identified Cx Nom (U) Klebsiella pneumoniae sp pneum [facility] Bacteria identified Cx Nom (U) Klebsiella pneumoniae sp pneum [facility] Absolute lymphocyte countOrd ered By: Dr. Smiley on 01-28-2023 Lymphocytes Auto (Unsp spec) [#/Vol] 3.27 10*3/uL 0.83-4.51 [facility] Absolute lymphocyte countOrd ered By: Dr. Lockwood on 01-28-2023 Lymphocytes Auto (Unsp spec) [#/Vol] 2.27 10*3/uL 0.83-4.51 [facility] Basophil percentageOrdered B y: Dr. Smiley on 01-28-2023 Basophils/100 WBC (Bld) 0.5 % 0-1 [facility] Bilirubin [Mass/Vol] 0.30 mg/dL 0.20-1.00 [facility] Comment on above: For patients on eltr ombopag therapy, use of Dimension [place] TBIL is not recommended. Chloride [Moles/Vol] 99 mmol/L 98-107 [facility] Cholesterol [Mass/Vol] 145 mg/dL <200 [facility] Comment on above: <200 mg/dL Desirable 200-240 mg/dL Borderline >240 mg/dL High Risk Eosinophils/100 WBC (Bld) 2.3 % 0-5 [facility] Glucose [Mass/Vol] 182 mg/dL 74-106 [facility] Comment on above: Fasting Glucose resu lt greater than or equal to 126 mg/dL suggests DIABETES MELLITUS per A.D.A. criteria. Neutrophils (Bld) [#/Vol] 3.9 10*3/uL 2.0-7.7 [facility] Neutrophils/100 WBC (Bld) 50.0 % 47-70 [facility] Potassium [Moles/Vol] 3.6 mmol/L 3.5-5.1 [facility] Protein [Mass/Vol] 7.9 g/dL 6.4-8.2 [facility] Sodium [Moles/Vol] 134 mmol/L 136-145 [facility] Triglyceride [Mass/Vol] 119 mg/dL <199 [facility] Comment on above: The drugs N-Acetylcy steine and Metamizole may falsely depress this assay.Serum Triglycerides Reference Interval Normal <150 mg/dL Borderline high 150 - 199 mg/dL High 200 - 499 mg/dL Very High > or = 500 mg/dL WBC (Bld) [#/Vol] 7.7 10*3/uL 4.4-11.0 [facility] Basophil percentageOrdered B y: Dr. Lockwood on 01-28-2023 Basophils/100 WBC (Bld) 0.8 % 0-1 [facility] Chloride [Moles/Vol] 102 mmol/L 98-107 [facility] Eosinophils/100 WBC (Bld) 2.6 % 0-5 [facility] Glucose [Mass/Vol] 137 mg/dL 74-106 [facility] Comment on above: Fasting Glucose resu lt greater than or equal to 126 mg/dL suggests DIABETES MELLITUS per A.D.A. criteria. Neutrophils (Bld) [#/Vol] 3.8 10*3/uL 2.0-7.7 [facility] Neutrophils/100 WBC (Bld) 56.6 % 47-70 [facility] Potassium [Moles/Vol] 3.8 mmol/L 3.5-5.1 [facility] Protein [Mass/Vol] 7.4 g/dL 6.4-8.2 [facility] Sodium [Moles/Vol] 136 mmol/L 136-145 [facility] WBC (Bld) [#/Vol] 6.6 10*3/uL 4.4-11.0 [facility] Blood erythrocytes count (nu mber/volume)Ordered By: Dr. Smiley on 01-28-2023 RBC (Bld) [#/Vol] 4.10 10*6/uL 4.2-5.4 [facility] Blood erythrocytes count (nu mber/volume)Ordered By: Dr. Lockwood on 01-28-2023 RBC (Bld) [#/Vol] 3.83 10*6/uL 4.2-5.4 [facility] Blood hemoglobin measurement (mass/volume)Ordered By: Dr. Smiley on 01-28-2023 Hemoglobin (Bld) [Mass/Vol] 11.5 g/dL 12.0-15.0 [facility] Blood hemoglobin measurement (mass/volume)Ordered By: Dr. Lockwood on 01-28-2023 Hemoglobin (Bld) [Mass/Vol] 11.1 g/dL 12.0-15.0 [facility] Blood lymphocytes/100 leukoc ytesOrdered By: Dr. Smiley on 01-28-2023 Lymphocytes/100 WBC (Bld) 42.3 % [facility] Blood lymphocytes/100 leukoc ytesOrdered By: Dr. Lockwood on 01-28-2023 Lymphocytes/100 WBC (Bld) 34.2 % [facility] Blood monocytes/100 leukocyt esOrdered By: Dr. Smiley on 01-28-2023 Monocytes/100 WBC (Bld) 4.8 % 0-10 [facility] Blood monocytes/100 leukocyt esOrdered By: Dr. Lockwood on 01-28-2023 Monocytes/100 WBC (Bld) 5.6 % 0-10 [facility] Blood platelet mean volumeOr dered By: Dr. Smiley on 01-28-2023 Platelet mean volume (Bld) [Entitic vol] 9.8 fL 6.2-12.0 [facility] Blood platelet mean volumeOr dered By: Dr. Lockwood on 01-28-2023 Platelet mean volume (Bld) [Entitic vol] 9.3 fL 6.2-12.0 [facility] Determination of erythrocyte mean corpuscular volume (MCV)Ordered By: Dr. Smiley on 01-28-2023 MCV (RBC) [Entitic vol] 90.7 fL 81-99 [facility] Determination of erythrocyte mean corpuscular volume (MCV)Ordered By: Dr. Lockwood on 01-28-2023 MCV (RBC) [Entitic vol] 87.7 fL 81-99 [facility] Hematocrit Auto (Bld) [Volum e fraction]Ordered By: Dr. Smiley on 01-28-2023 Hematocrit (Bld) [Volume fraction] 37.2 % 37-47 [facility] Hematocrit Auto (Bld) [Volum e fraction]Ordered By: Dr. Lockwood on 01-28-2023 Hematocrit (Bld) [Volume fraction] 33.6 % 37-47 [facility] Laboratory - Chemistry and C hemistry - challengeOrdered By: Dr. Smiley on 01-28-2023 ALP [Catalytic activity/Vol] 153 U/L 45-117 [facility] ALT [Catalytic activity/Vol] 20 U/L 13-56 [facility] CO2 [Moles/Vol] 25.0 mmol/L 21.0-32.0 [facility] Globulin (S) [Mass/Vol] 4.9 g/dL 2.2-4.2 [facility] Urea nitrogen/Creatinine [Mass ratio] 10.7 mg/mg 10-20 [facility] Laboratory - Chemistry and C hemistry - challengeOrdered By: Dr. Lockwood on 01-28-2023 ALP [Catalytic activity/Vol] 140 U/L 45-117 [facility] CO2 [Moles/Vol] 27.0 mmol/L 21.0-32.0 [facility] Free T4 [Mass/Vol] 1.11 ng/dL 0.76-1.46 [facility] Globulin (S) [Mass/Vol] 4.5 g/dL 2.2-4.2 [facility] Urea nitrogen/Creatinine [Mass ratio] 11.5 mg/mg 10-20 [facility] Laboratory - Hematology and Cell countsOrdered By: Dr. Smiley on 01-28-2023 Erythrocyte distribution width (RBC) [Entitic vol] 49.7 fL 35.1-43.9 [facility] Erythrocyte distribution width (RBC) [Ratio] 14.9 % 11.6-14.6 [facility] Immature granulocytes/100 WBC (Bld) 0.100 % 0.0-0.9 [facility] Comment on above: IG% - Immature Granu locytes (promyelocytes, myelocytes and metamyelocytes) > 1% indicates that a LEFT SHIFT is Present. MCH (RBC) [Entitic mass] 28.0 pg 27.0-32.0 [facility] Nucleated RBC/100 WBC (Bld) [Ratio] 0 % 0-5 [facility] Laboratory - Hematology and Cell countsOrdered By: Dr. Lockwood on 01-28-2023 Erythrocyte distribution width (RBC) [Entitic vol] 47.3 fL 35.1-43.9 [facility] Erythrocyte distribution width (RBC) [Ratio] 14.8 % 11.6-14.6 [facility] Immature granulocytes/100 WBC (Bld) 0.200 % 0.0-0.9 [facility] Comment on above: IG% - Immature Granu locytes (promyelocytes, myelocytes and metamyelocytes) > 1% indicates that a LEFT SHIFT is Present. MCH (RBC) [Entitic mass] 29.0 pg 27.0-32.0 [facility] MCHC Auto (RBC) [Mass/Vol]Or dered By: Dr. Smiley on 01-28-2023 MCHC (RBC) [Mass/Vol] 30.9 g/dL 32-36 [facility] Auto (RBC) [Mass/Vol]Or dered By: Dr. Lockwood on 01-28-2023 MCHC (RBC) [Mass/Vol] 33.0 g/dL [facility] Comment on above: Delta: 30.9 on 01/280 No Panel InformationOrdered By: Dr. Lockwood on 01-28-2023 Estimated Creatinine Clearance Calc 37.74 ml/min [facility] Estimated GFR (MDRD) Amer 91 mL/min >60 [facility] Comment on above: GFR Calc Estimated GFR (MDRD) Non-Af Amer 75 mL/min >60 [facility] Comment on above: Non- GFR Calc Free Triiodothyronine (T3) pg/dL 2.9 pg/mL 2.18-3.98 [facility] No Panel InformationOrdered By: Dr. Smiley on 01-28-2023 Estimated GFR (MDRD) Amer 84 mL/min >60 [facility] Comment on above: GFR Calc Estimated GFR (MDRD) Non-Af Amer 70 mL/min >60 [facility] Comment on above: Non- GFR Calc Parathyroid Hormone (Intact) 112.9 pg/mL 18.4-80.1 [facility] Thyroid Stimulating Hormone (TSH) 0.02 uIU/mL 0.358-3.74 [facility] Vitamin D 25-Hydroxy 66.1 ng/mL [facility] Comment on above: Vitamin D 25(OH) Sta tus Range Deficiency <20 ng/mL (50nmol/L) Insufficiency 20 - 30 ng/mL (50 - 75 nmol/L) Sufficiency 30 - 100 ng/mL (75 - 250 nmol/L) Toxicity >100 ng/mL (>250 nmol/L) Platelets bldOrdered By: Dr. Smiley on 01-28-2023 Platelets (Bld) [#/Vol] 349 10*3/uL 150-450 [facility] Platelets bldOrdered By: Dr. Lockwood on 01-28-2023 Platelets (Bld) [#/Vol] 285 10*3/uL 150-450 [facility] Serum or plasma albumin melanie urement (mass/volume)Ordered By: Dr. Smiley on 01-28-2023 Albumin [Mass/Vol] 3.0 g/dL 3.2-5.0 [facility] Serum or plasma albumin melanie urement (mass/volume)Ordered By: Dr. Lockwood on 01-28-2023 Albumin [Mass/Vol] 2.9 g/dL 3.2-5.0 [facility] Serum or plasma albumin/glob ulin mass ratioOrdered By: Dr. Smiley on 01-28-2023 Albumin/Globulin [Mass ratio] 0.6 {ratio} 0.9-2.4 [facility] Serum or plasma calcium melanie urement (mass/volume)Ordered By: Dr. Smiley on 01-28-2023 Calcium [Mass/Vol] 11.5 mg/dL 8.5-10.1 [facility] Serum or plasma calcium melanie urement (mass/volume)Ordered By: Dr. Lockwood on 01-28-2023 Calcium [Mass/Vol] 11.4 mg/dL 8.5-10.1 [facility] Serum or plasma cholesterol in HDL measurement (mass/volume)Ordered By: Dr. Smiley on 01-28-2023 Cholesterol in HDL [Mass/Vol] 46 mg/dL >40 [facility] Comment on above: The drugs N-Acetylcy steine and Metamizole may falsely depress this assay. Reference Range HDL <40 mg/dL Low HDL Cholesterol HDL >or= 60 mg/dL High HDL Cholesterol Serum or plasma cholesterol in VLDL measurement (mass/volume)Ordered By: Dr. Smiley on 01-28-2023 Cholesterol in VLDL [Mass/Vol] 24 mg/dL 5-40 [facility] Serum or plasma creatinine m easurement (mass/volume)Ordered By: Dr. Smiley on 01-28-2023 Creatinine [Mass/Vol] 0.84 mg/dL 0.55-1.02 [facility] Comment on above: The validity of the calculated GFR & GFRAA in patients over 70 years has not been determined. Clinical correlation is essential. Serum or plasma creatinine m easurement (mass/volume)Ordered By: Dr. Lockwood on 01-28-2023 Creatinine [Mass/Vol] 0.78 mg/dL 0.55-1.02 [facility] Comment on above: The validity of the calculated GFR & GFRAA in patients over 70 years has not been determined. Clinical correlation is essential. Serum or plasma low density lipoprotein (LDL) cholesterol measurement (mass/volume)Ordered By: Dr. Smiley on 01-28-2023 Cholesterol in LDL [Mass/Vol] 75 mg/dL 0-130 [facility] Serum or plasma urea nitroge n measurement (mass/volume)Ordered By: Dr. Smiley on 01-28-2023 Urea nitrogen [Mass/Vol] 9 mg/dL 7-18 [facility] Thin prep Papanicolaou smear with manual screeningOrdered By: Dr. Smiley on 01-28-2023 Thin prep Papanicolaou smear with manual screening 22 U/L 15- [facility] Thin prep Papanicolaou smear with manual screening 10 01-12 [facility] Thin prep Papanicolaou smear with manual screeningOrdered By: Dr. Lockwood on 01-28-2023 Thin prep Papanicolaou smear with manual screening 18 U/L [facility] Thin prep Papanicolaou smear with manual screening 7 - [facility] Whole blood hemoglobin A1c/t otal hemoglobin ratio (mass fraction)Ordered By: Dr. Smiley on 01-28-2023 HbA1c (Bld) [Mass fraction] 7.5 % 3.8-5.6 [facility] Comment on above: Normal < 5.7 % Predi abetic 5.7 - 6.4 % Diabetic >or= 6.5 % Please note range changes. Basophil percentageOrdered B y: Dr. Smiley on 12-09-2022 Bilirubin [Mass/Vol] 0.20 mg/dL 0.20-1.00 [facility] Comment on above: For patients on eltr ombopag therapy, use of Dimension [place] TBIL is not recommended. Chloride [Moles/Vol] 101 mmol/L 98-107 [facility] Glucose [Mass/Vol] 168 mg/dL 74-106 [facility] Comment on above: Fasting Glucose resu lt greater than or equal to 126 mg/dL suggests DIABETES MELLITUS per A.D.A. criteria. Potassium [Moles/Vol] 3.7 mmol/L 3.5-5.1 [facility] Protein [Mass/Vol] 8.7 g/dL 6.4-8.2 [facility] Sodium [Moles/Vol] 133 mmol/L 136-145 [facility] - Chemistry and C hemistry - challengeOrdered By: Dr. Smiley on 12-09-2022 ALP [Catalytic activity/Vol] 164 U/L 45-117 [facility] ALT [Catalytic activity/Vol] 27 U/L 13-56 [facility] CO2 [Moles/Vol] 25.0 mmol/L 21.0-32.0 [facility] Globulin (S) [Mass/Vol] 5.4 g/dL 2.2-4.2 [facility] Urea nitrogen/Creatinine [Mass ratio] 10.7 mg/mg 10-20 [facility] No Panel InformationOrdered By: Dr. Smiley on 12-09-2022 Estimated GFR (MDRD) Amer 67 mL/min >60 [facility] Comment on above: GFR Calc Estimated GFR (MDRD) Non-Af Amer 55 mL/min >60 [facility] Comment on above: Non- GFR Calc Parathyroid Hormone (Intact) 175.0 pg/mL 18.4-80.1 [facility] Vitamin D 25-Hydroxy 92.6 ng/mL [facility] Comment on above: Vitamin D 25(OH) Sta tus Range Deficiency <20 ng/mL (50nmol/L) Insufficiency 20 - 30 ng/mL (50 - 75 nmol/L) Sufficiency 30 - 100 ng/mL (75 - 250 nmol/L) Toxicity >100 ng/mL (>250 nmol/L) Serum or plasma albumin melanie urement (mass/volume)Ordered By: Dr. Smiley on 12-09-2022 Albumin [Mass/Vol] 3.3 g/dL 3.2-5.0 [facility] Serum or plasma albumin/glob ulin mass ratioOrdered By: Dr. Smiley on 12-09-2022 Albumin/Globulin [Mass ratio] 0.6 {ratio} 0.9-2.4 [facility] Serum or plasma calcium melanie urement (mass/volume)Ordered By: Dr. Smiley on 12-09-2022 Calcium [Mass/Vol] 11.4 mg/dL 8.5-10.1 [facility] Serum or plasma creatinine m easurement (mass/volume)Ordered By: Dr. Smiley on 12-09-2022 Creatinine [Mass/Vol] 1.03 mg/dL 0.55-1.02 [facility] Comment on above: The validity of the calculated GFR & GFRAA in patients over 70 years has not been determined. Clinical correlation is essential. Serum or plasma urea nitroge n measurement (mass/volume)Ordered By: Dr. Smiley on 12-09-2022 Urea nitrogen [Mass/Vol] 11 mg/dL 7-18 [facility] Thin prep Papanicolaou smear with manual screeningOrdered By: Dr. Smiley on 12-09-2022 Thin prep Papanicolaou smear with manual screening 20 U/L 15-37 [facility] Thin prep Papanicolaou smear with manual screening 7 5-15 [facility] Whole blood hemoglobin A1c/t otal hemoglobin ratio (mass fraction)Ordered By: Dr. Smiley on 12-09-2022 HbA1c (Bld) [Mass fraction] 7.4 % 3.8-5.6 [facility] Comment on above: Normal < 5.7 % Predi abetic 5.7 - 6.4 % Diabetic >or= 6.5 % Please note range changes. Absolute lymphocyte counton 07-14-2022 Lymphocytes Auto (Unsp spec) [#/Vol] 2.79 10*3/uL 0.83-4.51 [facility] Work Phone: Basophil percentageon 2021 Basophil percentage 25-50 SEEN /hpf 0-5 [facility] Work Phone: Basophils/100 WBC (Bld) 0.5 % 0-1 [facility] Work Phone: [phone] Bilirubin [Mass/Vol] 0.30 mg/dL 0.20-1.00 [facility] Work Phone: Comment on above: For patients on eltr ombopag therapy, use of Dimension [place] TBIL is not recommended. Chloride [Moles/Vol] 102 mmol/L 98-107 [facility] Work Phone: [phone] Eosinophils/100 WBC (Bld) 3.2 % 0-5 [facility] Work Phone: Glucose [Mass/Vol] 143 mg/dL 74-106 [facility] Work Phone: Comment on above: Fasting Glucose resu lt greater than or equal to 126 mg/dL suggests DIABETES MELLITUS per A.D.A. criteria. Neutrophils (Bld) [#/Vol] 4.5 10*3/uL 2.0-7.7 [facility] Work Phone: Neutrophils/100 WBC (Bld) 54.7 % 47-70 [facility] Work Phone: Potassium [Moles/Vol] 4.9 mmol/L 3.5-5.1 [facility] Work Phone: Comment on above: Moderate Hemolysis, Result may be falsely increased. Protein [Mass/Vol] 8.3 g/dL 6.4-8.2 [facility] Work Phone: Sodium [Moles/Vol] 136 mmol/L 136-145 [facility] Work Phone: WBC (Bld) [#/Vol] 8.1 10*3/uL 4.4-11.0 [facility] Work Phone: Bilirubin Test strip Ql (U)o n 07-14-2022 Bilirubin Ql (U) Negative Negative [facility] Work Phone: Blood erythrocytes count (nu mber/volume)on 07-14-2022 RBC (Bld) [#/Vol] 4.15 10*6/uL 4.2-5.4 [facility] Work Phone: Blood hemoglobin measurement (mass/volume)on 07-14-2022 Hemoglobin (Bld) [Mass/Vol] 12.0 g/dL 12.0-15.0 [facility] Work Phone: [phone] Blood lymphocytes/100 leukoc yteson 07-14-2022 Lymphocytes/100 WBC (Bld) 34.4 % 19-41 [facility] Work Phone: [phone] Blood monocytes/100 leukocyt eson 07-14-2022 Monocytes/100 WBC (Bld) 6.8 % 0-10 [facility] Work Phone: Blood platelet mean volumeon 07-14-2022 Platelet mean volume (Bld) [Entitic vol] 10.2 fL 6.2-12.0 [facility] Work Phone: Determination of erythrocyte mean corpuscular volume (MCV)on 07-14-2022 MCV (RBC) [Entitic vol] 90.8 fL 81-99 [facility] Work Phone: Hematocrit Auto (Bld) [Volum e fraction]on 07-14-2022 Hematocrit (Bld) [Volume fraction] 37.7 % 37-47 [facility] Work Phone: Ketones Test strip Ql (U)on 07-14-2022 Ketones Ql (U) Negative Negative [facility] Work Phone: Laboratory - Chemistry and C hemistry - challengeon 07-14-2022 ALP [Catalytic activity/Vol] 131 U/L 45-117 [facility] Work Phone: ALT [Catalytic activity/Vol] 33 U/L 13-56 [facility] Work Phone: CO2 [Moles/Vol] 31.0 mmol/L 21.0-32.0 [facility] Work Phone: Globulin (S) [Mass/Vol] 5.0 g/dL 2.2-4.2 [facility] Work Phone: Urea nitrogen/Creatinine [Mass ratio] 14.7 mg/mg 10-20 [facility] Work Phone: Laboratory - Hematology and Cell countson 07-14-2022 Erythrocyte distribution width (RBC) [Entitic vol] 49.9 fL 35.1-43.9 [facility] Work Phone: Erythrocyte distribution width (RBC) [Ratio] 15.1 % 11.6-14.6 [facility] Work Phone: Immature granulocytes/100 WBC (Bld) 0.400 % 0.0-0.9 [facility] Work Phone: Comment on above: IG% - Immature Granu locytes (promyelocytes, myelocytes and metamyelocytes) > 1% indicates that a LEFT SHIFT is Present. MCH (RBC) [Entitic mass] 28.9 pg 27.0-32.0 [facility] Work Phone: Nucleated RBC/100 WBC (Bld) [Ratio] 0 % 0-5 [facility] Work Phone: MCHC Auto (RBC) [Mass/Vol]on 07-14-2022 MCHC (RBC) [Mass/Vol] 31.8 g/dL 32-36 [facility] Work Phone: Mucus LM Ql (Urine sed)on Mucus Ql (Urine sed) 0 SEEN /hpf [facility] Work Phone: Nitrite Test strip Ql (U)on 07-14-2022 Nitrite Ql (U) Negative Negative [facility] Work Phone: No Panel Informationon 07-14 Estimated Creatinine Clearance Calc 40.37 ml/min [facility] Work Phone: Estimated GFR (MDRD) Amer 73 mL/min >60 [facility] Work Phone: Comment on above: GFR Calc Estimated GFR (MDRD) Non-Af Amer 60 mL/min >60 [facility] Work Phone: Comment on above: Non- GFR Calc Platelets bldon 07-14-2022 Platelets (Bld) [#/Vol] 267 10*3/uL 150-450 [facility] Work Phone: Protein Test strip Ql (U)on 07-14-2022 Protein Ql (U) 30 mg/dl Negative [facility] Work Phone: Serum or plasma albumin melanie urement (mass/volume)on 07-14-2022 Albumin [Mass/Vol] 3.3 g/dL 3.2-5.0 [facility] Work Phone: Serum or plasma albumin/glob ulin mass ratioon 07-14-2022 Albumin/Globulin [Mass ratio] 0.7 {ratio} 0.9-2.4 [facility] Work Phone: Serum or plasma calcium melanie urement (mass/volume)on 07-14-2022 Calcium [Mass/Vol] 11.4 mg/dL 8.5-10.1 [facility] Work Phone: Serum or plasma creatinine m easurement (mass/volume)on 07-14-2022 Creatinine [Mass/Vol] 0.95 mg/dL 0.55-1.02 [facility] Work Phone: Comment on above: The validity of the calculated GFR & GFRAA in patients over 70 years has not been determined. Clinical correlation is essential. Serum or plasma urea nitroge n measurement (mass/volume)on 07-14-2022 Urea nitrogen [Mass/Vol] 14 mg/dL 7-18 [facility] Work Phone: Squamous epithelial cells de tection in urine sediment by light microscopyon 07-14-2022 Epithelial cells.squamous LM Ql (Urine sed) 0-5 SEEN /hpf 5-10 [facility] Work Phone: Thin prep Papanicolaou smear with manual screeningon 07-14-2022 Thin prep Papanicolaou smear with manual screening 44 U/L 15-37 [facility] Work Phone: Comment on above: Moderate Hemolysis, Result may be falsely increased. Thin prep Papanicolaou smear with manual screening 3 5-15 [facility] Work Phone: Urine blood detectionon 07-01 RBC Ql (U) 25 /ul Negative [facility] Work Phone: RBC Ql (U) 0 SEEN /hpf 0-5 [facility] Work Phone: Urine clarityon 07-14-2022 Clarity (U) Sl. Cloudy Clear [facility] Work Phone: Urine color determinationon 07-14-2022 Color (U) Yellow Yellow [facility] Work Phone: Urine glucose detectionon Glucose Ql (U) 1000 mg/dl Normal [facility] Work Phone: Urine leukocyte esterase det ection by dipstickon 07-14-2022 Leukocyte esterase Test strip Ql (U) 500 /ul Negative [facility] Work Phone: Urine pHon 07-14-2022 pH (U) 6.0 [pH] 5.0 - 8.0 [facility] Work Phone: Urine sediment bacteria coun t by microscopy (number/high power field)on 07-14-2022 Bacteria LM.HPF (Urine sed) [#/Area] 3 /[HPF] None Seen [facility] Work Phone: Urine specific gravity measu rementon 07-14-2022 Specific gravity (U) [Rel density] 1.015 1.002-1.030 [facility] Work Phone: Urobilinogen Auto test strip Ql (U)on 07-14-2022 Urobilinogen Ql (U) Normal mg/dl Normal [facility] Work Phone: CBC W Auto Differential pane l (Bld)on 05-07-2022 Basophils (Bld) [#/Vol] 0.05 10*3/uL Normal <0.11 [facility] Comment on above: Order Comment: Speci men Type: BLOOD SPECIMEN Ordering Facility: [facility] Address: [address] [address] Performed By: #### 5 7021-8 #### [facility] CLIA [id number] [address] [place] [address] [place] [facility] Basophils/100 WBC (Bld) 0.7 % Normal [facility] Comment on above: Order Comment: Speci men Type: BLOOD SPECIMEN Ordering Facility: [facility] Address: [facility] [phone] Performed By: #### 5 7021-8 #### [facility] CLIA [id number] [address] [place] [address] [place] Differential cell count method Nom (Bld) Auto Normal [facility] Comment on above: Order Comment: Speci men Type: BLOOD SPECIMEN Ordering Facility: [facility] Address: [address] [place] [address] Performed By: #### 5 7021-8 #### [facility] CLIA [id number] [address] [place] [address] [place] Eosinophils (Bld) [#/Vol] 0.32 10*3/uL Normal <0.46 [facility] Comment on above: Order Comment: Speci men Type: BLOOD SPECIMEN Ordering Facility: [facility] Address: [address] [place] [address] Performed By: #### 5 7021-8 #### [facility] CLIA [id number] [address] [place] [address] [place] Eosinophils/100 WBC (Bld) 4.7 % Normal [facility] Comment on above: Order Comment: Speci men Type: BLOOD SPECIMEN Ordering Facility: [facility] Address: [address] [place] [address] Performed By: #### 5 7021-8 #### [facility] CLIA [id number] [address] [place] [address] [place] Erythrocyte distribution width (RBC) [Ratio] 14.6 % Normal 11.5-15.0 [facility] Comment on above: Order Comment: Speci men Type: BLOOD SPECIMEN Ordering Facility: [facility] Address: [address] [place] [address] Performed By: #### 5 7021-8 #### [facility] CLIA [id number] [address] [place] [address] [place] Hematocrit (Bld) [Volume fraction] 37.2 % Normal 36.0-46.0 [facility] Comment on above: Order Comment: Speci men Type: BLOOD SPECIMEN Ordering Facility: [facility] Address: [address] [place] [address] Performed By: #### 5 7021-8 #### [facility] CLIA [id number] [address] [place] [address] [place] Hemoglobin (Bld) [Mass/Vol] 12.0 g/dL Normal 11.5-15.5 [facility] Comment on above: Order Comment: Speci men Type: BLOOD SPECIMEN Ordering Facility: [facility] Address: [address] [place] [address] Performed By: #### 5 7021-8 #### [facility] CLIA [id number] [address] [place] [address] [place] IMMATURE GRAN % 0.1 % Normal [facility] Comment on above: Order Comment: Speci men Type: BLOOD SPECIMEN Ordering Facility: [facility] Address: [address] [place] [address] Performed By: #### 5 7021-8 #### [id number] [address] [place] [address] [place] IMMATURE GRAN ABS <0.03 Normal <0.10 [facility] Comment on above: Order Comment: Speci men Type: BLOOD SPECIMEN Ordering Facility: [facility] Address: [address] [place] [address] Performed By: #### 5 7021-8 #### [facility] CLIA [id number] [address] [place] [address] [place] Lymphocytes (Bld) [#/Vol] 2.03 10*3/uL Normal 1.00-4.00 [facility] Comment on above: Order Comment: Speci men Type: BLOOD SPECIMEN Ordering Facility: [facility] Address: [address] [place] [address] Performed By: #### 5 7021-8 #### [facility] CLIA [id number] [address] [place] [address] [place] Lymphocytes/100 WBC (Bld) 29.7 % Normal [facility] Comment on above: Order Comment: Speci men Type: BLOOD SPECIMEN Ordering Facility: [facility] Address: [address] [place] [address] Performed By: #### 5 7021-8 #### [facility] CLIA [id number] [address] [place] [address] [place] MCH (RBC) [Entitic mass] 28.5 pg Normal 26.0-34.0 [facility] Comment on above: Order Comment: Speci men Type: BLOOD SPECIMEN Ordering Facility: [facility] Address: [address] [place] [address] Performed By: #### 5 7021-8 #### [facility] CLIA [id number] [address] [place] [address] [place] MCHC (RBC) [Mass/Vol] 32.3 g/dL Normal 30.5-36.0 [facility] Comment on above: Order Comment: Speci men Type: BLOOD SPECIMEN Ordering Facility: [facility] Address: [address] [place] [address] Performed By: #### 5 7021-8 #### [facility] CLIA [id number] [address] [place] [address] [place] MCV (RBC) [Entitic vol] 88.4 fL Normal 80.0-100.0 C [facility] Comment on above: Order Comment: Speci men Type: BLOOD SPECIMEN Ordering Facility: [facility] Address: [address] [place] [address] Performed By: #### 5 7021-8 #### [facility] CLIA [id number] [address] [place] [address] [place] Monocytes (Bld) [#/Vol] 0.47 10*3/uL Normal <0.87 [facility] Comment on above: Order Comment: Speci men Type: BLOOD SPECIMEN Ordering Facility: [facility] Address: [address] [place], [place] [address] Performed By: #### 5 7021-8 #### [facility] CLIA [id number] [address] [place] [address] [place] Monocytes/100 WBC (Bld) 6.9 % Normal [facility] Comment on above: Order Comment: Speci men Type: BLOOD SPECIMEN Ordering Facility: [facility] Address: [address] [place], [place] [id number] Performed By: #### 5 7021-8 #### [facility] CLIA [id number] [address] [place] [address] [place] Neutrophils (Bld) [#/Vol] 3.96 10*3/uL Normal 1.45-7.50 [facility] Comment on above: Order Comment: Speci men Type: BLOOD SPECIMEN Ordering Facility: [facility] Address: [address] [place], [place] [address] Performed By: #### 5 7021-8 #### [facility] CLIA [id number] [address] [place] [address] [place] Neutrophils/100 WBC (Bld) 57.9 % Normal [facility] Comment on above: Order Comment: Speci men Type: BLOOD SPECIMEN Ordering Facility: [facility] Address: [address] Performed By: #### 5 7021-8 #### [facility] CLIA [id number] [address] [place] [address] [place] Nucleated RBC (Bld) [#/Vol] 10*3/uL Normal <0.01 [facility] Comment on above: Order Comment: Speci men Type: BLOOD SPECIMEN Ordering Facility: [facility] Address: [address] [place], [place] [address] Performed By: #### 5 7021-8 #### [facility] CLIA [id number] [address] [place] [address] [place] Nucleated RBC/100 WBC (Bld) [Ratio] 0.0 /100 WBC Normal [facility] Comment on above: Order Comment: Speci men Type: BLOOD SPECIMEN Ordering Facility: [facility] Address: [address] [place], [place] [address] Performed By: #### 5 7021-8 #### [facility] CLIA [id number] [address] [place] [address] [place] Platelet mean volume (Bld) [Entitic vol] 10.0 fL Normal 9.0-12.7 [facility] Comment on above: Order Comment: Speci men Type: BLOOD SPECIMEN Ordering Facility: [facility] Address: [address] [place], [place] [address] Performed By: #### 5 7021-8 #### [facility] CLIA [id number] [address] [place] [address] [place] Platelets (Bld) [#/Vol] 246 10*3/uL Normal 150-400 [facility] Comment on above: Order Comment: Speci men Type: BLOOD SPECIMEN Ordering Facility: [facility] Address: [address] [place], [place] [address] Performed By: #### 5 7021-8 #### [facility] CLIA [id number] [address] [place] [address] [place] RBC (Bld) [#/Vol] 4.21 10*6/uL Normal 3.90-5.20 [facility] Comment on above: Order Comment: Speci men Type: BLOOD SPECIMEN Ordering Facility: [facility] Address: [address] [place], [place] [address] Performed By: #### 5 7021-8 #### [facility] CLIA [id number] [address] [place] [address] [place] WBC (Bld) [#/Vol] 6.84 10*3/uL Normal 3.70-11.00 [facility] Comment on above: Order Comment: Speci men Type: BLOOD SPECIMEN Ordering Facility: [facility] Address: [facility] [place] [address] Performed By: #### 5 7021-8 #### [facility] CLIA [id number] [address] [id number] [place] CNOVSPon 05-07-2022 CNOVSP Visit (SP) Office (EVELYN) OLGA DONALDSON ([id number]) 1945 F Date Time Provider Department 05/07/22 [...] an every 2-week basis for 4 cycles ([id number]). Completed a year of trastuzumab 10/17/06. Referred back or anemia. Admitted to [facility] 12/02/2019 for chest pain with [...] 1.00 - 4.00 k/uL 2.70 2.30 2.03 Cotton% % 7.0 6.6 6.9 Abs Cotton <0.87 k/uL 0.49 0.47 0.47 Eosin% % 4.9 3.2 4.7 Abs Eosin <0.46 k/uL 0.34 0.23 0.32 Baso% % 0.7 0.6 0.7 Abs Baso <0.11 k/uL 0.05 0.04 0.05 Immature (more content not included)... Normal [facility] Ferritin SerPl-mCncon 2021 Ferritin [Mass/Vol] 808.0 ng/mL High 14.7-205.1 [facility] Comment on above: Order Comment: Speci men Type: BLOOD SPECIMEN Ordering Facility: [facility] Address: [address] [place] [address] Performed By: #### 5 0190-8, 2276-4 #### [facility] CLIA [id number] [address] [place] [address] [place] Iron and Iron binding capaci ty panelon 05-07-2022 Iron [Mass/Vol] 38 ug/dL Low 41-186 [facility] Comment on above: Order Comment: Speci men Type: BLOOD SPECIMEN Ordering Facility: [facility] Address: [address] [place] [address] Performed By: #### 5 0190-8, 6-4 #### [facility] CLIA [id number] [address] [place] [address] [place] Iron binding capacity [Mass/Vol] 240 ug/dL Normal 232-386 [facility] Comment on above: Order Comment: Speci men Type: BLOOD SPECIMEN Ordering Facility: [facility] Address: [address] [place] [address] Performed By: #### 5 0190-8, 6-4 #### [facility] CLIA [id number] [address] [place] [address] [place] Iron/TIBC [Molar ratio] 15.8 % Normal 15.0-57.0 [facility] Comment on above: Order Comment: Speci men Type: BLOOD SPECIMEN Ordering Facility: [facility] Address: [address] [place], [place] [phone] Performed By: #### 5 0190-8, 2276-4 #### [facility] CLIA [id number] [address] [place] [address] OF [facility] Justine 02-10-2022 [place] Telephone (EVELYN) OLGA DONALDSON ([id number]) 1945 F Date Time Provider Department 02/10/22 [...] Date Reviewed: 05/07/2021 Reviewed by: 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 APRN.[employer] - Fully Assessed Reason for Visit: Results [...] MIST) 0.65 % nasal spray Use 1 [place] in the nose as needed. - diltiazem [...] by STACIE VARNER LPN on 02/10/22 Normal [facility] CBC W Auto Differential pane l (Bld)on 02-03-2022 Basophils (Bld) [#/Vol] 0.04 10*3/uL Normal <0.11 [facility] Comment on above: Order Comment: Speci men Type: BLOOD SPECIMEN Ordering Facility: [facility] Address: [address] [place] [address] Performed By: #### 5 7021-8 #### [facility] CLIA [id number] [address] [place] [address] [place] Basophils/100 WBC (Bld) 0.6 % Normal [facility] Comment on above: Order Comment: Speci men Type: BLOOD SPECIMEN [facility] REH[facility]ILITATION Address: [address] [place] [address] Performed By: #### 5 7021-8 #### [facility] CLIA [id number] [address] [place] [address] [place] Differential cell count method Nom (Bld) Auto Normal [facility] Comment on above: Order Comment: Speci men Type: BLOOD SPECIMEN Ordering Facility: [facility] Address: [address] [address] Performed By: #### 5 7021-8 #### [facility] CLIA [id number] [address] [place] [address] [place] Eosinophils (Bld) [#/Vol] 0.23 10*3/uL Normal <0.46 [facility] Comment on above: Order Comment: Speci men Type: BLOOD SPECIMEN Ordering Facility: [facility] Address: [address] [address] Performed By: #### 5 7021-8 #### [facility] CLIA [id number] [address] [place] [address] [place] Eosinophils/100 WBC (Bld) 3.2 % Normal [facility] Comment on above: Order Comment: Speci men Type: BLOOD SPECIMEN Ordering Facility: [facility] Address: [address] [place] [address] Performed By: #### 5 7021-8 #### [facility] CLIA [id number] [address] [place] [address] [place] Erythrocyte distribution width (RBC) [Ratio] 14.3 % Normal 11.5-15.0 [facility] Comment on above: Order Comment: Speci men Type: BLOOD SPECIMEN Ordering Facility: [facility] Address: [address] [place] [address] Performed By: #### 5 7021-8 #### [facility] CLIA [id number] [address] [place] [address] [place] Hematocrit (Bld) [Volume fraction] 39.7 % Normal 36.0-46.0 [facility] Comment on above: Order Comment: Speci men Type: BLOOD SPECIMEN Ordering Facility: [facility] Address: [address] [place] [address] Performed By: #### 5 7021-8 #### [facility] CLIA [id number] [address] [place] [address] [place] Hemoglobin (Bld) [Mass/Vol] 12.8 g/dL Normal 11.5-15.5 [facility] Comment on above: Order Comment: Speci men Type: BLOOD SPECIMEN Ordering Facility: [facility] Address: [address] [place], [place] [address] Performed By: #### 5 7021-8 #### [facility] CLIA [id number] [address] [place] [address] [place] IMMATURE GRAN % 0.3 % Normal [facility] Comment on above: Order Comment: Speci men Type: BLOOD SPECIMEN Ordering Facility: [facility] Address: [address] [place] [address] Performed By: #### 5 7021-8 #### [facility] CLIA [id number] [address] [place] [address] [place] IMMATURE GRAN ABS <0.03 Normal <0.10 [facility] Comment on above: Order Comment: Speci men Type: BLOOD SPECIMEN Ordering Facility: [facility] Address: [address] [place] [address] Performed By: #### 5 7021-8 #### [facility] CLIA [id number] [address] [place] [address] [place] Lymphocytes (Bld) [#/Vol] 2.30 10*3/uL Normal 1.00-4.00 [facility] Comment on above: Order Comment: Speci men Type: BLOOD SPECIMEN Ordering Facility: [facility] Address: [address] [place] [address] Performed By: #### 5 7021-8 #### [facility] CLIA [id number] [address] [place] [address] [place] Lymphocytes/100 WBC (Bld) 32.1 % Normal [facility] Comment on above: Order Comment: Speci men Type: BLOOD SPECIMEN Ordering Facility: [facility] Address: [address] [place] [address] Performed By: #### 5 7021-8 #### [facility] CLIA [id number] [address] [place] [address] [place] MCH (RBC) [Entitic mass] 28.8 pg Normal 26.0-34.0 [facility] Comment on above: Order Comment: Speci men Type: BLOOD SPECIMEN Ordering Facility: [facility] Address: [address] [place], [place] [address] Performed By: #### 5 7021-8 #### [facility] CLIA [id number] [address] [place] [address] MCHC (RBC) [Mass/Vol] 32.2 g/dL Normal 30.5-36.0 [facility] Comment on above: Order Comment: Speci men Type: BLOOD SPECIMEN Ordering Facility: [facility] Address: [address] [place] [address] Performed By: #### 5 7021-8 #### [id number] [address] [place] [address] [place] MCV (RBC) [Entitic vol] 89.4 fL Normal 80.0-100.0 [facility] Comment on above: Order Comment: Speci men Type: BLOOD SPECIMEN Ordering Facility: [facility] Address: [address] [place] [address] Performed By: #### 5 7021-8 #### [facility] [id number] [address] [place] [address] [place] Monocytes (Bld) [#/Vol] 0.47 10*3/uL Normal <0.87 [facility] Comment on above: Order Comment: Speci men Type: BLOOD SPECIMEN Ordering Facility: [facility] Address: [address] [place] [address] Performed By: #### 5 7021-8 #### [facility] CLIA [id number] [address] [place] [address] [place] Monocytes/100 WBC (Bld) 6.6 % Normal [facility] Comment on above: Order Comment: Speci men Type: BLOOD SPECIMEN Ordering Facility: [facility] Address: [address] [place] [address] Performed By: #### 5 7021-8 #### [facility] CLIA [id number] [address] [place] [address] [place] Neutrophils (Bld) [#/Vol] 4.11 10*3/uL Normal 1.45-7.50 [facility] Comment on above: Order Comment: Speci men Type: BLOOD SPECIMEN Ordering Facility: [facility] Address: [address] [place] [address] Performed By: #### 5 7021-8 #### [facility] CLIA [id number] [address] [place] [address] [place] Neutrophils/100 WBC (Bld) 57.2 % Normal [facility] Comment on above: Order Comment: Speci men Type: BLOOD SPECIMEN Ordering Facility: [facility] Address: [address] [place] [address] Performed By: #### 5 7021-8 #### [facility] CLIA [id number] [address] [place] [address] [place] Nucleated RBC (Bld) [#/Vol] 10*3/uL Normal <0.01 [facility] Comment on above: Order Comment: Speci men Type: BLOOD SPECIMEN Ordering Facility: [facility] Address: [address] [place] [address] Performed By: #### 5 7021-8 #### [facility] CLIA [id number] [address] [place] [address] [place] Nucleated RBC/100 WBC (Bld) [Ratio] 0.0 /100 WBC Normal [facility] Comment on above: Order Comment: Speci men Type: BLOOD SPECIMEN Ordering Facility: [facility] Address: [address] [place] [address] Performed By: #### 5 7021-8 #### [facility] CLIA [id number] [address] [place] [address] [place] Platelet mean volume (Bld) [Entitic vol] 10.3 fL Normal 9.0-12.7 [facility] Comment on above: Order Comment: Speci men Type: BLOOD SPECIMEN Ordering Facility: [facility] Address: [address] [place] [address] Performed By: #### 5 7021-8 #### [facility] CLIA [id number] [address] [place] [address] [place] Platelets (Bld) [#/Vol] 265 10*3/uL Normal 150-400 [facility] Comment on above: Order Comment: Speci men Type: BLOOD SPECIMEN Ordering Facility: [facility] Address: [address] [place] [address] Performed By: #### 5 7021-8 #### [facility] CLIA [id number] [address] [place] [address] [place] RBC (Bld) [#/Vol] 4.44 10*6/uL Normal 3.90-5.20 [facility] Comment on above: Order Comment: Speci men Type: BLOOD SPECIMEN Ordering Facility: [facility] Address: [address] [place] [address] Performed By: #### 5 7021-8 #### [facility] CLIA [id number] [address] [place] [address] [place] WBC (Bld) [#/Vol] 7.17 10*3/uL Normal 3.70-11.00 [facility] Comment on above: Order Comment: Speci men Type: BLOOD SPECIMEN Ordering Facility: [facility] Address: [address] [place] [address] Performed By: #### 5 7021-8 #### [facility] CLIA [id number] [address] [place] [address] [place] FERRITIN BLDon 02-03-2022 Ferritin [Mass/Vol] 1132.0 ng/mL High 14.7-205.1 [facility] Comment on above: Order Comment: Speci men Type: BLOOD SPECIMEN Ordering Facility: [facility] Address: [address] [place] [address] Performed By: #### F ERR, IRON #### [facility] CLIA [id number] [address] [place] [address] [place] IRON + TIBCon 02-03-2022 Iron [Mass/Vol] 66 ug/dL Normal 41-186 [facility] Comment on above: Order Comment: Speci men Type: BLOOD SPECIMEN Ordering Facility: [facility] Address: [address] [place] [address] Performed By: #### F ERR, IRON #### [facility] CLIA [id number] [address] [place] [address] [place] Iron binding capacity [Mass/Vol] 286 ug/dL Normal 232-386 [facility] Comment on above: Order Comment: Speci men Type: BLOOD SPECIMEN Ordering Facility: [facility] Address: [address] [place] [address] Performed By: #### F ERR, IRON #### [facility] CLIA [id number] [address] [place] [address] [place] Iron/TIBC [Molar ratio] 23 % Normal 15-57 [facility] Comment on above: Order Comment: Speci men Type: BLOOD SPECIMEN Ordering Facility: [facility] Address: [address] [place] [address] Performed By: #### F ERR, IRON #### [facility] CLIA [id number] [address] [place] [address] [place] Bacteria identified Anaer cx Nom (Unsp spec)on 12-02-2021 Anaerobic microbial culture No anaerobic bacteria isolated. [facility] Work Phone: Bacteria identified Cx Nom ( Wound)on 12-02-2021 Wound Culture Negative [facility] Work Phone: Wound Culture Staphylococcus epidermidis [facility] Work Phone: Wound Culture Corynebacterium striatum [facility] Work Phone: Gram stain for investigation of transfusion reactionon 12-02-2021 Microscopic observation Gram stain Nom (Unsp spec) [facility] Work Phone: CBC W Auto Differential pane l (Bld)on 11-04-2021 Basophils (Bld) [#/Vol] 0.05 10*3/uL Normal <0.11 [facility] Comment on above: Order Comment: Speci men Type: BLOOD SPECIMEN Ordering Facility: [facility] Address: [address] [place] [address] Performed By: #### 5 7021-8 #### [facility] CLIA [id number] [address] [place] [address] [place] Basophils/100 WBC (Bld) 0.7 % Normal [facility] Comment on above: Order Comment: Speci men Type: BLOOD SPECIMEN Ordering Facility: [facility] Address: [address] [place] [address] Performed By: #### 5 7021-8 #### [facility] CLIA [id number] [address] [place] [address] [place] Differential cell count method Nom (Bld) Auto Normal [facility] Comment on above: Order Comment: Speci men Type: BLOOD SPECIMEN Ordering Facility: [facility] Address: [address] [address] Performed By: #### 5 7021-8 #### [facility] CLIA [id number] [address] [place] [address] [place] Eosinophils (Bld) [#/Vol] 0.34 10*3/uL Normal <0.46 [facility] Comment on above: Order Comment: Speci men Type: BLOOD SPECIMEN Ordering Facility: [facility] Address: [address] [address] Performed By: #### 5 7021-8 #### [facility] CLIA [id number] [address] [place] [address] [place] Eosinophils/100 WBC (Bld) 4.9 % Normal [facility] Comment on above: Order Comment: Speci men Type: BLOOD SPECIMEN Ordering Facility: [facility] Address: [address] [place], [place] [address] Performed By: #### 5 7021-8 #### [facility] CLIA [id number] [address] [place] [address] [place] Erythrocyte distribution width (RBC) [Ratio] 13.3 % Normal 11.5-15.0 [facility] Comment on above: Order Comment: Speci men Type: BLOOD SPECIMEN Ordering Facility: [facility] Address: [address] [place] [address] Performed By: #### 5 7021-8 #### [facility] CLIA [id number] [address] [place] [address] [place] Hematocrit (Bld) [Volume fraction] 40.4 % Normal 36.0-46.0 [facility] Comment on above: Order Comment: Speci men Type: BLOOD SPECIMEN Ordering Facility: [facility] Address: [address] [place], [place] [address] Performed By: #### 5 7021-8 #### [facility] CLIA [id number] [address] [place] [address] [place] Hemoglobin (Bld) [Mass/Vol] 12.9 g/dL Normal 11.5-15.5 [facility] Comment on above: Order Comment: Speci men Type: BLOOD SPECIMEN Ordering Facility: [facility] Address: [address] [place], [place] [address] Performed By: #### 5 7021-8 #### [facility] CLIA [id number] [address] [place] IMMATURE GRAN % 0.1 % Normal [facility] Comment on above: Order Comment: Speci men Type: BLOOD SPECIMEN Ordering Facility: [facility] Address: [address] [place] [address] Performed By: #### 5 7021-8 #### [facility] CLIA [id number] [address] [place] [address] [place] IMMATURE GRAN ABS <0.03 Normal <0.10 [facility] Comment on above: Order Comment: Speci men Type: BLOOD SPECIMEN Ordering Facility: [facility] Address: [address] [place] [address] Performed By: #### 5 7021-8 #### [facility] CLIA [id number] [address] [place] [address] [place] Lymphocytes (Bld) [#/Vol] 2.70 10*3/uL Normal 1.00-4.00 [facility] Comment on above: Order Comment: Speci men Type: BLOOD SPECIMEN Ordering Facility: [facility] Address: [address] [place] [address] Performed By: #### 5 7021-8 #### [facility] CLIA [id number] [address] [place] [address] [place] Lymphocytes/100 WBC (Bld) 38.6 % Normal [facility] Comment on above: Order Comment: Speci men Type: BLOOD SPECIMEN Ordering Facility: [facility] Address: [address] [place] [address] Performed By: #### 5 7021-8 #### [facility] CLIA [id number] [address] [place] [address] [place] MCH (RBC) [Entitic mass] 28.9 pg Normal 26.0-34.0 [facility] Comment on above: Order Comment: Speci men Type: BLOOD SPECIMEN Ordering Facility: [facility] Address: [address] [place], [place] [address] Performed By: #### 5 7021-8 #### [facility] CLIA [id number] [address] [place] [address] MCHC (RBC) [Mass/Vol] 31.9 g/dL Normal 30.5-36.0 [facility] Comment on above: Order Comment: Speci men Type: BLOOD SPECIMEN Ordering Facility: [facility] Address: [address] [place], [place] [address] Performed By: #### 5 7021-8 #### [id number] [address] [place] [address] [place] MCV (RBC) [Entitic vol] 90.4 fL Normal 80.0-100.0 [facility] Comment on above: Order Comment: Speci men Type: BLOOD SPECIMEN Ordering Facility: [facility] Address: [address] [place] [address] Performed By: #### 5 7021-8 #### [facility] [id number] [address] [place] [address] [place] Monocytes (Bld) [#/Vol] 0.49 10*3/uL Normal <0.87 [facility] Comment on above: Order Comment: Speci men Type: BLOOD SPECIMEN Ordering Facility: [facility] Address: [address] [place], [place] [address] Performed By: #### 5 7021-8 #### [facility] CLIA [id number] [address] [place] [address] Monocytes/100 WBC (Bld) 7.0 % Normal [facility] Comment on above: Order Comment: Speci men Type: BLOOD SPECIMEN Ordering Facility: [facility] Address: [address] [place], [place] [address] Performed By: #### 5 7021-8 #### [facility] CLIA [id number] [address] [place] [address] [place] Neutrophils (Bld) [#/Vol] 3.40 10*3/uL Normal 1.45-7.50 [facility] Comment on above: Order Comment: Speci men Type: BLOOD SPECIMEN Ordering Facility: [facility] Address: [address] [place] [address] Performed By: #### 5 7021-8 #### [facility] CLIA [id number] [address] [place] [address] [place] Neutrophils/100 WBC (Bld) 48.7 % Normal [facility] Comment on above: Order Comment: Speci men Type: BLOOD SPECIMEN Ordering Facility: [facility] Address: [address] [place] [address] Performed By: #### 5 7021-8 #### [facility] CLIA [id number] [address] [place] [address] [place] Nucleated RBC (Bld) [#/Vol] 10*3/uL Normal <0.01 [facility] Comment on above: Order Comment: Speci men Type: BLOOD SPECIMEN Ordering Facility: [facility] Address: [address] [place] [address] Performed By: #### 5 7021-8 #### [facility] CLIA [id number] [address] [place] [address] [place] Nucleated RBC/100 WBC (Bld) [Ratio] 0.0 /100 WBC Normal [facility] Comment on above: Order Comment: Speci men Type: BLOOD SPECIMEN Ordering Facility: [facility] Address: [address] [place] [address] Performed By: #### 5 7021-8 #### [facility] CLIA [id number] [address] [place] [address] [place] Platelet mean volume (Bld) [Entitic vol] 10.1 fL Normal 9.0-12.7 [facility] Comment on above: Order Comment: Speci men Type: BLOOD SPECIMEN Ordering Facility: [facility] Address: [address] [place] [address] Performed By: #### 5 7021-8 #### [facility] CLIA [id number] [address] [place] [address] [place] Platelets (Bld) [#/Vol] 246 10*3/uL Normal 150-400 [facility] Comment on above: Order Comment: Speci men Type: BLOOD SPECIMEN Ordering Facility: [facility] Address: [address] [place] [address] Performed By: #### 5 7021-8 #### [facility] CLIA [id number] [address] [place] [address] [place] RBC (Bld) [#/Vol] 4.47 10*6/uL Normal 3.90-5.20 [facility] Comment on above: Order Comment: Speci men Type: BLOOD SPECIMEN Ordering Facility: [facility] Address: [address] [place] [address] Performed By: #### 5 7021-8 #### [facility] CLIA [id number] [address] [place] [address] [place] WBC (Bld) [#/Vol] 6.99 10*3/uL Normal 3.70-11.00 [facility] Comment on above: Order Comment: Speci men Type: BLOOD SPECIMEN Ordering Facility: [facility] Address: [address] [place] [address] Performed By: #### 5 7021-8 #### [facility] CLIA [id number] [address] [place] [address] [place] FERRITIN BLDon 11-04-2021 Ferritin [Mass/Vol] 1428.0 ng/mL High 14.7-205.1 [facility] Comment on above: Order Comment: Speci men Type: BLOOD SPECIMEN Ordering Facility: [facility] Address: [address] [place] [address] Performed By: #### Elise RUSH FERR #### [facility] CLIA [id number] [address] [place] [address] [place] IRON + TIBCon 11-04-2021 Iron [Mass/Vol] 60 ug/dL Normal 41-186 [facility] Comment on above: Order Comment: Speci men Type: BLOOD SPECIMEN Ordering Facility: [facility] Address: [address] [place] [address] Performed By: #### Elise RUSH FERR #### [facility] CLIA [id number] [address] [place] [address] [facility] Iron binding capacity [Mass/Vol] 242 ug/dL Normal 232-386 [facility] Comment on above: Order Comment: Speci men Type: BLOOD SPECIMEN Ordering Facility: [facility] Address: [address] [place] [address] Performed By: #### Elise RUSH, FERR #### [facility] CLIA [id number] [address] [place] [address] Iron/TIBC [Molar ratio] 25 % Normal 15-57 [facility] Comment on above: Order Comment: Speci men Type: BLOOD SPECIMEN Ordering Facility: [facility] [facility] Address: [address] [place] [address] Performed By: #### Elise RUSH FERR #### [facility] CLIA [id number] [address] [place] [address] [place] Justine 09-29-2021 JOCELYNE Telephone (HEMAWS) OLGA DONALDSON ([id number]) 1945 F Date Time Provider Department 09/29/21 [...] Date Reviewed: 05/07/2021 Reviewed by: 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 APRN.MERCHANT SEAMAN - Fully Assessed Reason for Visit: Results [95] Follow Up [171] Primary Visit Diagnosis:Anemia, unspecified type [D64.9] Order(s):CBC + DIFF [SQCBCDIF] Order #: [id number] FUTURE COMP METABOLIC PANEL [SQCMP] Order #: [id number] FUTURE PROTEIN ELECTROPHORESIS SERUM W/INTERP [SQSEPG] Order #: [id number] FUTURE MONOCLONAL PROTEIN, SERUM (BLOOD) [SQSERMPA] Order #: [id number] FUTURE Prescriptions as of 04/12/2022 - ascorbic [...] MIST) 0.65 % nasal spray Use 1 [place] in the nose as needed. - diltiazem [...] Specified Conge (more content not included)... Normal [facility] Justine 05-09-2021 MARLIN Telephone (EVELYN) OLGA DONALDSON ([id number]) 1945 F Date Time Provider Department 05/09/21 [...] Date Reviewed: 05/07/2021 Reviewed by: 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 APRN.MERCHANT SEAMAN - Fully Assessed Reason for Visit: Results [...] MIST) 0.65 % nasal spray Use 1 [place] in the nose as needed. - diltiazem [...] by STACIE VARNER LPN on 05/09/21 Normal [facility] - Specimen inform ationon 03-27-2021 Specimen source Nom (Unsp spec) Stool [facility] No Panel Informationon 03-27 Occult Blood Diagnostic Positive [facility] FERRITIN BLDon 03-22-2021 Ferritin [Mass/Vol] 1064.0 ng/mL High 14.7 - 2 05.1 ng/mL [facility] CULTURE FUNGUSon 02-08-2018 CULTURE FUNGUS 1 Organism Nithya albicans Many Normal [facility] Comment on above: Performed By: #### C /FUN, S/FUN ####[facility] [id number] [place] [address] STAIN FUNGUSon 01-19-2018 STAIN FUNGUS STAIN FUNGUS --> Status: F 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 Direct exam by Calcofluor stain. Direct exam by Calcofluor stain. Normal [facility] Comment on above: Performed By: #### C /FUN, S/FUN ####[facility] [id number] [place] [address] Office Visit: Consult- Romero mina 01-13-2017 Adolescent depression screening assessment Adolescent depression screening assessment Invalid Interpretation Code [facility] Work Phone: [phone] Adult depression screening assessment Adolescent depression screening assessment [facility] Work Phone: [phone] Documentation of current medications (procedure) Done Invalid Interpretation Code [facility] Work Phone: [phone] Fall risk assessment Fall risk assessment [facility] Work Phone: [phone] Tobacco smoking status NHIS Never [facility] Work Phone: [phone] Tobacco smoking status NHIS Former smoker [facility] Work Phone: [phone] Tobacco use CPHS Former smoker Invalid Interpretation Code [facility] Work Phone: [phone] 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 Left ventricular Ejection fraction 70 % [facility] Work Phone: [phone] Office Visiton 08-29-2015 cardiac risk group [facility] Work Phone: [phone] General cardiovascular disease 10Y risk [#] Wendel.D'Agostino Not enough information [facility] Work Phone: [phone] Replaced Document: Midmark E CG Observationson 08-29-2015 EKG QRS axis 29 deg [facility] Work Phone: [phone] electrocardiogram interpretation Sinus Tachycardia -With rate variation cv = 10.WITHIN NORMAL LIMITS Invalid Interpretation Code [facility] Work Phone: [phone] GE use only - for LinkLogic import when terms are not otherwise specified 411 ms Invalid Interpretation Code [facility] Work Phone: [phone] Interpretation Sinus Tachycardia -With rate variation cv = 10.WITHIN NORMAL LIMITS [facility] Work Phone: [phone] P [place] 41 deg [facility] Work Phone: [phone] P wave axis, electrocardiogram 41 deg Invalid Interpretation Code [facility] Work Phone: [phone] IN Interval 134 ms [facility] Work Phone: [phone] IN interval, electrocardiogram 134 ms Invalid Interpretation Code [facility] Work Phone: [phone] Pulse (Heart Rate) 109 /min Invalid Interpretation Code [facility] Work Phone: [phone] QRS axis, electrocardiogram 29 deg Invalid Interpretation Code [facility] Work Phone: [phone] QRS Duration 80 ms [facility] Work Phone: [phone] QRS duration, electrocardiogram 80 ms Invalid Interpretation Code [facility] Work Phone: [phone] QT Interval new path ms [facility] Work Phone: [phone] QT interval, electrocardiogram new path ms Invalid Interpretation Code [facility] Work Phone: [phone] QTc Carney 411 ms [facility] Work Phone: [phone] T [place] 37 deg [facility] Work Phone: [phone] T wave axis, electrocardiogram 37 deg Invalid Interpretation Code [facility] Work Phone: [phone] Bacteria identified Anaer cx Nom (Unsp spec) Anaerobic microbial culture No anaerobic bacteria isolated. [facility] Work Phone: [phone] Bacteria identified Cx Nom ( Wound) Wound Culture Negative [facility] Work Phone: [phone] Wound Culture Staphylococcus epidermidis [facility] Work Phone: Wound Culture Corynebacterium striatum [facility] Work Phone: Culture, urine Bacteria identified Cx Nom (U) Klebsiella pneumoniae sp pneum [facility] Work Phone: Gram stain for investigation of transfusion reaction Microscopic observation Gram stain Nom (Unsp spec) [facility] Work Phone: Vital Signs Date Time Vital Sign Value Performing Clinician Facility 03-25-2025 13:49-0400 Body temperature 98.9 [degF] Dr. Ramone Smiley MD Work Phone: 0(043)184-706493 [place] [address] 03-25-2025 13:49-0400 Diastolic blood pressure 60 mm[Hg] Dr. Ramone Smiley MD Work Phone: 1(131)208-627793 [place] [address] 03-25-2025 13:49-0400 Heart rate 102 /min Dr. Ramone Smiley MD Work Phone: 6(630)508-668693 [place] [address] 03-25-2025 13:49-0400 Inhaled oxygen flow rate 2 L/min Dr. Ramone Smiley MD Work Phone: 6(701)423-525493 [place] [address] 03-25-2025 13:49-0400 Respiratory rate 16 /min Dr. Ramone Smiley MD Work Phone: 4(384)146-235893 [place] [address] 03-25-2025 13:49-0400 SaO2% (BldA) [Mass fraction] 100 % Dr. Ramone Smiley MD Work Phone: 7(498)365-458093 [place] [address] 03-25-2025 13:49-0400 Systolic blood pressure 136 mm[Hg] Dr. Ramone Smiley MD Work Phone: 2(884)970-299693 [place] [address] 03-25-2025 03:15-0400 Body mass index (BMI) [Ratio] 30.4 kg/m2 Dr. Ramone Smiley MD Work Phone: 2(227)222-577393 [place] [address] 03-25-2025 03:15-0400 Body weight 77.[address] Ramone Smiley MD Work Phone: 3(593)710-244193 [place] [address] 03-24-2025 14:00-0400 Body height 160.[address] Ramone Smiley MD Work Phone: 8(810)808-048693 [place] [address] 03-21-2025 22:28-0400 Body temperature 98.4 [degF] Dr. Ramone Smiley MD Work Phone: 9(367)392-460693 [place] [address] 03-21-2025 22:28-0400 Diastolic blood pressure 81 mm[Hg] Dr. Ramone Smiley MD Work Phone: 4(847)533-369393 [place] [address] 03-21-2025 22:28-0400 Heart rate 86 /min Dr. Ramone Smiley MD Work Phone: 4(973)539-220593 [place] [address] 03-21-2025 22:28-0400 Respiratory rate 19 /min Dr. Ramone Smiley MD Work Phone: 4(468)997-904393 [place] [address] 03-21-2025 22:28-0400 SaO2% (BldA) [Mass fraction] 94 % Dr. Ramone Smiley MD Work Phone: 1(283)814-625793 [place] [address] 03-21-2025 22:28-0400 Systolic blood pressure 136 mm[Hg] Dr. Ramone Smiley MD Work Phone: 1(752)619-362093 [place] [address] 03-21-2025 21:00-0400 Inhaled oxygen flow rate 2 L/min Dr. Ramone Smiley MD Work Phone: 6(134)762-365993 [place] [address] 03-21-2025 13:31-0400 Body mass index (BMI) [Ratio] 27.6 kg/m2 Dr. Ramone Smiley MD Work Phone: 4(993)144-194193 [place] [address] 03-21-2025 13:31-0400 Body weight 70.[address] Ramone Smiley MD Work Phone: 4(888)307-989893 [place] [address] 03-21-2025 13:23-0400 Body height 160.[address] Ramone Smiley MD Work Phone: 7(356)016-821093 [place] [address] 03-04-2025 23:10-0400 Body temperature 98 [degF] Dr. Ramone Smiley MD Work Phone: 3(024)164-652793 [place] [address] 03-04-2025 23:10-0400 Diastolic blood pressure 80 mm[Hg] Dr. Ramone Smiley MD Work Phone: 3(416)238-691793 [place] [address] 03-04-2025 23:10-0400 Heart rate 81 /min Dr. Ramone Smiley MD Work Phone: 7(677)898-000993 [place] [address] 03-04-2025 23:10-0400 Respiratory rate 16 /min Dr. Ramone Smiley MD Work Phone: 0(376)162-278393 [place] [address] 03-04-2025 23:10-0400 SaO2% (BldA) [Mass fraction] 95 % Dr. Ramone Smiley MD Work Phone: 9(624)433-220893 [place] [address] 03-04-2025 23:10-0400 Systolic blood pressure 135 mm[Hg] Dr. Ramone Smiley MD Work Phone: 4(733)465-356993 [place] [address] 03-04-2025 19:04-0400 Inhaled oxygen flow rate 2 L/min Dr. Ramone Smiley MD Work Phone: 1(664)227-661893 [place] [address] 03-04-2025 18:54-0400 Body mass index (BMI) [Ratio] 28 kg/m2 Dr. Ramone Smiley MD Work Phone: 3(549)310-674393 [place] [address] 03-04-2025 18:54-0400 Body weight 71.[address] Ramone Smiley MD Work Phone: 6(081)159-486593 [place] [address] 03-04-2025 18:37-0400 Body height 160.[address] Ramone mSiley MD Work Phone: 2(253)377-286093 [place] [address] 02-19-2025 00:38-0400 Body temperature 98.7 [degF] Dr. Ramone Smiley MD Work Phone: 0(174)151-374593 [place] [address] 02-19-2025 00:38-0400 Diastolic blood pressure 86 mm[Hg] Dr. Ramone Smiley MD Work Phone: 2(246)251-623893 [place] [address] 02-19-2025 00:38-0400 Heart rate 98 /min Dr. Ramone Smiley MD Work Phone: 4(038)585-588993 [place] [address] 02-19-2025 00:38-0400 Respiratory rate 22 /min Dr. Ramone Smiley MD Work Phone: 6(966)413-685293 [place] [address] 02-19-2025 00:38-0400 SaO2% (BldA) [Mass fraction] 98 % Dr. Ramone Smiley MD Work Phone: 6(253)312-520393 [place] [address] 02-19-2025 00:38-0400 Systolic blood pressure 122 mm[Hg] Dr. Ramone Smiley MD Work Phone: 7(555)983-094793 [place] [address] 02-19-2025 00:23-0400 Inhaled oxygen flow rate 2 L/min Dr. Ramone Smiley MD Work Phone: [facility] 02-18-2025 20:51-0400 Body height 160.[address] Ramone Smiley MD Work Phone: [facility] 02-18-2025 20:51-0400 Body mass index (BMI) [Ratio] 30.4 kg/m2 Dr. Ramone Smiley MD Work Phone: 6(636)741-450555 [place] [address] 02-18-2025 20:51-0400 Body weight 77.[address] Ramone Smiley MD Work Phone: 9(608)177-630893 [place] [address] 02-17-2025 18:40-0400 Heart rate 78 /min Dr. Ramone Smiley MD Work Phone: 4(203)357-767493 [place] [address] 02-17-2025 18:40-0400 Inhaled oxygen flow rate 2 L/min Dr. Ramone Smiley MD Work Phone: 2(490)145-364093 [place] [address] 02-17-2025 18:40-0400 Respiratory rate 18 /min Dr. Ramone Smiley MD Work Phone: 6(463)872-947893 [place] [address] 02-17-2025 18:40-0400 SaO2% (BldA) [Mass fraction] 94 % Dr. Ramone Smiley MD Work Phone: 5(267)413-213393 [place] [address] 02-17-2025 18:08-0400 Body temperature 98.9 [degF] Dr. Ramone Smiley MD Work Phone: 4(138)915-177955 [place] [address] 02-17-2025 18:08-0400 Diastolic blood pressure 54 mm[Hg] Dr. Ramone Smiley MD Work Phone: 7(098)157-119555 [place] [address] 02-17-2025 18:08-0400 Systolic blood pressure 137 mm[Hg] Dr. Ramone Smiley MD Work Phone: 7(168)635-418693 [place] [address] 02-17-2025 04:49-0400 Body mass index (BMI) [Ratio] 29.4 kg/m2 Dr. Ramone Smiley MD Work Phone: 4(493)929-601255 [place] [address] 02-17-2025 04:49-0400 Body weight 75.[address] Ramone Smiley MD Work Phone: 6(193)390-459655 [place] [address] 02-15-2025 15:20-0400 Body height 160.[address] Ramone Smiley MD Work Phone: 9(683)574-498293 [place] [address] 02-15-2025 13:54-0400 Body temperature 99.6 [degF] Dr. Ramone Smiley MD Work Phone: 3(463)340-048693 [place] [address] 02-15-2025 13:54-0400 Diastolic blood pressure 53 mm[Hg] Dr. Ramone Smiley MD Work Phone: 5(807)255-568393 [place] [address] 02-15-2025 13:54-0400 Heart rate 98 /min Dr. Ramone Smiley MD Work Phone: 6(456)946-350193 [place] [address] 02-15-2025 13:54-0400 Inhaled oxygen flow rate 3 L/min Dr. Ramone Smiley MD Work Phone: 8(449)041-046193 [place] [address] 02-15-2025 13:54-0400 Respiratory rate 22 /min Dr. Ramone Smiley MD Work Phone: 2(922)610-269493 [place] [address] 02-15-2025 13:54-0400 SaO2% (BldA) [Mass fraction] 98 % Dr. Ramone Smiley MD Work Phone: 4(867)747-580193 [place] [address] 02-15-2025 13:54-0400 Systolic blood pressure 110 mm[Hg] Dr. Ramone Smiley MD Work Phone: 0(147)979-003493 [place] [address] 02-15-2025 08:36-0400 Body height 160.[address] Ramone Smiley MD Work Phone: 9(330)944-614293 [place] [address] 02-15-2025 08:36-0400 Body mass index (BMI) [Ratio] 30.4 kg/m2 Dr. Ramone Smiley MD Work Phone: 1(192)574-857993 [place] [address] 02-15-2025 08:36-0400 Body weight 78.[address] Ramone Smiley MD Work Phone: 0(192)792-611193 [place] [address] 02-13-2025 16:00-0400 Inhaled oxygen flow rate 2 L/min Dr. Ramone Smiley MD Work Phone: 3(255)144-634493 [place] [address] 02-13-2025 14:04-0400 Body temperature 98.4 [degF] Dr. Ramone Smiley MD Work Phone: 7(233)317-082493 [place] [address] 02-13-2025 14:04-0400 Heart rate 94 /min Dr. Ramone Smiley MD Work Phone: 4(309)949-663393 [place] [address] 02-13-2025 14:04-0400 Respiratory rate 20 /min Dr. Ramone Smiley MD Work Phone: 6(699)648-406493 [place] [address] 02-13-2025 14:04-0400 SaO2% (BldA) [Mass fraction] 94 % Dr. Ramone Smiley MD Work Phone: 9(106)918-071493 [place] [address] 02-13-2025 08:41-0400 Diastolic blood pressure 51 mm[Hg] Dr. Ramone Smiley MD Work Phone: 6(796)909-297693 [place] [address] 02-13-2025 08:41-0400 Systolic blood pressure 132 mm[Hg] Dr. Ramone Smiley MD Work Phone: 3(852)644-829893 [place] [address] 02-10-2025 13:27-0400 Body height 160.[address] Ramone Smiley MD Work Phone: 6(424)550-349693 [place] [address] 02-10-2025 13:27-0400 Body weight 76.[address] Ramone Smiley MD Work Phone: 9(732)973-911193 [place] [address] 02-09-2025 16:43-0400 Body mass index (BMI) [Ratio] 29.9 kg/m2 Dr. Ramone Smiley MD Work Phone: 4(898)821-788493 [place] [address] 02-09-2025 15:12-0400 Inhaled oxygen flow rate 2 L/min Dr. Ramone Smiley MD Work Phone: 5(231)463-948093 [place] [address] 02-09-2025 15:12-0400 SaO2% (BldA) [Mass fraction] 91 % Dr. Ramone Smiley MD Work Phone: 5(379)126-275293 [place] [address] 02-09-2025 15:08-0400 Body temperature 99 [degF] Dr. Ramone Smiley MD Work Phone: [facility] 02-09-2025 15:08-0400 Diastolic blood pressure 46 mm[Hg] Dr. Ramone Smiley MD Work Phone: 1(325)319-461693 [place] [address] 02-09-2025 15:08-0400 Heart rate 94 /min Dr. Ramone Smiley MD Work Phone: 5(810)587-637593 [place] [address] 02-09-2025 15:08-0400 Respiratory rate 25 /min Dr. Ramone Smiley MD Work Phone: 8(736)122-711993 [place] [address] 02-09-2025 15:08-0400 Systolic blood pressure 136 mm[Hg] Dr. Ramone Smiley MD Work Phone: 3(732)447-426793 [place] [address] 02-09-2025 11:52-0400 Body height 160.[address] Ramone Smiley MD Work Phone: 8(389)432-393193 [place] [address] 02-09-2025 11:52-0400 Body mass index (BMI) [Ratio] 30.1 kg/m2 Dr. Ramone Smiley MD Work Phone: 8(432)555-132193 [place] [address] 02-09-2025 11:52-0400 Body weight 77.[address] Ramone Smiley MD Work Phone: 9(358)593-905193 [place] [address] 02-06-2025 15:38-0400 Body temperature 97.5 [degF] Dr. Ramone Smiley MD Work Phone: 7(051)780-696993 [place] [address] 02-06-2025 15:38-0400 Diastolic blood pressure 81 mm[Hg] Dr. Ramone Smiley MD Work Phone: 5(642)224-016393 [place] [address] 02-06-2025 15:38-0400 Heart rate 74 /min Dr. Ramone Smiley MD Work Phone: 3(624)278-457393 [place] [address] 02-06-2025 15:38-0400 Respiratory rate 18 /min Dr. Ramone Smiley MD Work Phone: 3(279)360-904593 [place] [address] 02-06-2025 15:38-0400 SaO2% (BldA) [Mass fraction] 93 % Dr. Ramone Smiley MD Work Phone: 3(236)014-617555 [place] [address] 02-06-2025 15:38-0400 Systolic blood pressure 117 mm[Hg] Dr. Ramone Smiley MD Work Phone: 3(872)490-817293 [place] [address] 02-06-2025 07:36-0400 Inhaled oxygen flow rate 2 L/min Dr. Ramone Smiley MD Work Phone: 7(730)697-886593 [place] [address] 02-04-2025 12:34-0400 Body height 160.[address] Ramone Smiley MD Work Phone: 7(744)376-367493 [place] [address] 02-04-2025 12:34-0400 Body mass index (BMI) [Ratio] 27.8 kg/m2 Dr. Ramone Smiley MD Work Phone: 9(698)628-747493 [place] [address] 02-04-2025 12:34-0400 Body weight 71.[address] Ramone Smiley MD Work Phone: 9(841)061-586193 [place] [address] 02-04-2025 11:06-0400 Body temperature 98.6 [degF] Dr. Ramone Smiley MD Work Phone: 4(098)105-219293 [place] [address] 02-04-2025 11:06-0400 Diastolic blood pressure 46 mm[Hg] Dr. Ramone Smiley MD Work Phone: 0(712)152-029393 [place] [address] 02-04-2025 11:06-0400 Heart rate 88 /min Dr. Ramone Smiley MD Work Phone: 5(213)677-061793 [place] [address] 02-04-2025 11:06-0400 Respiratory rate 30 /min Dr. Ramone Smiley MD Work Phone: 1(438)886-961693 [place] [address] 02-04-2025 11:06-0400 SaO2% (BldA) [Mass fraction] 99 % Dr. Ramone Smiley MD Work Phone: 5(691)292-955693 [place] [address] 02-04-2025 11:06-0400 Systolic blood pressure 111 mm[Hg] Dr. Ramone Smiley MD Work Phone: 6(573)041-239993 [place] [address] 02-04-2025 11:00-0400 Inhaled oxygen flow rate 3 L/min Dr. Ramone Smiley MD Work Phone: 2(561)294-544655 [place] [address] 02-04-2025 06:20-0400 Body height 160.[address] Ramone Smiley MD Work Phone: 0(554)961-535493 [place] [address] 02-04-2025 06:20-0400 Body mass index (BMI) [Ratio] 29.9 kg/m2 Dr. Ramone Smiley MD Work Phone: 8(353)147-171993 [place] [address] 02-04-2025 06:20-0400 Body weight 76.[address] Ramone Smiley MD Work Phone: 8(724)469-918993 [place] [address] 01-31-2025 06:28-0400 Body mass index (BMI) [Ratio] 27.4 kg/m2 Dr. Ramone Smiley MD Work Phone: 2(865)734-623093 [place] [address] 01-31-2025 06:28-0400 Body weight 70.[address] Ramone Smiley MD Work Phone: 0(421)406-086993 [place] [address] 01-31-2025 06:28-0400 Diastolic blood pressure 59 mm[Hg] Dr. Ramone Smiley MD Work Phone: 3(947)190-163993 [place] [address] 01-31-2025 06:28-0400 Heart rate 95 /min Dr. Ramone Smiley MD Work Phone: 7(719)529-033993 [place] [address] 01-31-2025 06:28-0400 Respiratory rate 18 /min Dr. Ramone Smiley MD Work Phone: 8(041)856-249793 [place] [address] 01-31-2025 06:28-0400 SaO2% (BldA) [Mass fraction] 95 % Dr. Ramone Smiley MD Work Phone: 3(432)043-113393 [place] [address] 01-31-2025 06:28-0400 Systolic blood pressure 107 mm[Hg] Dr. Ramone Smiley MD Work Phone: 8(161)455-876093 [place] [address] 01-26-2025 05:13-0400 Body temperature 98.3 [degF] Dr. Ramone Smiley MD Work Phone: 6(115)973-548793 [place] [address] 01-26-2025 05:13-0400 Diastolic blood pressure 72 mm[Hg] Dr. Ramone Smiley MD Work Phone: [facility] 01-26-2025 05:13-0400 Heart rate 83 /min Dr. Ramone Smiley MD Work Phone: 1(846)898-204293 [place] [address] 01-26-2025 05:13-0400 Respiratory rate 18 /min Dr. Ramone Smiley MD Work Phone: 3(557)853-207093 [place] [address] 01-26-2025 05:13-0400 SaO2% (BldA) [Mass fraction] 97 % Dr. Ramone Smiley MD Work Phone: 4(186)500-482993 [place] [address] 01-26-2025 05:13-0400 Systolic blood pressure 116 mm[Hg] Dr. Ramone Smiley MD Work Phone: 9(752)213-453693 [place] [address] 01-26-2025 03:02-0400 Body height 160.[address] Ramone Smiley MD Work Phone: 8(700)600-398593 [place] [address] 01-26-2025 03:02-0400 Body mass index (BMI) [Ratio] 31.4 kg/m2 Dr. Ramone Smiley MD Work Phone: 8(315)865-624493 [place] [address] 01-26-2025 03:02-0400 Body weight 80.[address] Ramone Smiley MD Work Phone: 3(283)365-957393 [place] [address] 01-24-2025 13:57-0400 Body temperature 97.4 [degF] Dr. Ramone Smiley MD Work Phone: 5(916)847-180693 [place] [address] 01-24-2025 13:57-0400 Diastolic blood pressure 68 mm[Hg] Dr. Ramone Smiley MD Work Phone: 3(484)272-948293 [place] [address] 01-24-2025 13:57-0400 Heart rate 87 /min Dr. Ramone Smiley MD Work Phone: 0(985)428-287693 [place] [address] 01-24-2025 13:57-0400 Respiratory rate 16 /min Dr. Ramone Smiley MD Work Phone: 6(189)174-331793 [place] [address] 01-24-2025 13:57-0400 SaO2% (BldA) [Mass fraction] 97 % Dr. Ramone Smiley MD Work Phone: 9(174)520-758355 [place] [address] 01-24-2025 13:57-0400 Systolic blood pressure 111 mm[Hg] Dr. Ramone Smiley MD Work Phone: 2(959)588-186955 [place] [address] 01-24-2025 05:23-0400 Body mass index (BMI) [Ratio] 30.7 kg/m2 Dr. Ramone Smiley MD Work Phone: 9(869)242-568993 [place] [address] 01-24-2025 05:23-0400 Body weight 78.[address] Ramone Smiley MD Work Phone: 4(288)181-197093 [place] [address] 01-22-2025 14:00-0400 Inhaled oxygen concentration 24 % Dr. Ramone Smiley MD Work Phone: 1(913)362-564693 [place] [address] 01-22-2025 11:00-0400 Inhaled oxygen flow rate 2 L/min Dr. Ramone Smiley MD Work Phone: 3(666)335-636493 [place] [address] 01-20-2025 10:06-0400 Body height 160.[address] Ramone Smiley MD Work Phone: 4(158)033-176593 [place] [address] 01-15-2025 18:58-0400 Body temperature 97.9 [degF] Dr. Ramone Smiley MD Work Phone: 4(557)259-478193 [place] [address] 01-15-2025 18:58-0400 Diastolic blood pressure 70 mm[Hg] Dr. Ramone Smiley MD Work Phone: 7(696)831-674293 [place] [address] 01-15-2025 18:58-0400 Heart rate 69 /min Dr. Ramone Smiley MD Work Phone: 6(845)516-264093 [place] [address] 01-15-2025 18:58-0400 Respiratory rate 22 /min Dr. Ramone Smiley MD Work Phone: 4([phone])[phone] [place] [address] 01-15-2025 18:58-0400 SaO2% (BldA) [Mass fraction] 98 % Dr. Ramone Smiley MD Work Phone: 2(226)[phone] [place] [address] 01-15-2025 18:58-0400 Systolic blood pressure 130 mm[Hg] Dr. Ramone Smiley MD Work Phone: 8(644)[phone] [place] [address] 01-15-2025 14:14-0400 Body height [address] Ramone Smiley MD Work Phone: [facility] 01-15-2025 14:14-0400 Body mass index (BMI) [Ratio] 32.3 kg/m2 Dr. Ramone Smiley MD Work Phone: [facility] 01-15-2025 14:14-0400 Body weight 82.[address] Ramone Smiley MD Work Phone: 5(046)220-077235 [address] 01-07-2025 17:34-0400 Body temperature 97.6 [degF] Dr. Ramone Smiley MD Work Phone: 8(523)150-962835 [address] 01-07-2025 17:34-0400 Diastolic blood pressure 78 mm[Hg] Dr. Ramone Smiley MD Work Phone: 4(669)307-778235 [address] 01-07-2025 17:34-0400 Heart rate 82 /min Dr. Ramone Smiley MD Work Phone: 3(610)110-588335 [address] 01-07-2025 17:34-0400 Respiratory rate 19 /min Dr. Ramone Smiley MD Work Phone: 2(197)006-123535 [address] 01-07-2025 17:34-0400 SaO2% (BldA) [Mass fraction] 97 % Dr. Ramone Smiley MD Work Phone: 3(572)897-216135 [address] 01-07-2025 17:34-0400 Systolic blood pressure 147 mm[Hg] Dr. Ramone Smiley MD Work Phone: [facility] 01-07-2025 14:56-0400 Body height 160.[address] Ramone Smiley MD Work Phone: [facility] 01-07-2025 14:56-0400 Body mass index (BMI) [Ratio] 31.5 kg/m2 Dr. Ramone Smiley MD Work Phone: [facility] 01-07-2025 14:56-0400 Body weight 80.[address] Ramone Smiley MD Work Phone: [facility] 12-30-2023 14:14-0400 Body temperature 98.9 [degF] Dr. Ramone Smiley Work Phone: [facility] 12-30-2023 14:14-0400 Diastolic blood pressure 60 mm[Hg] Dr. Ramone Smiley Work Phone: [facility] 12-30-2023 14:14-0400 Heart rate 80 /min Dr. Ramone Smiley Work Phone: [facility] 12-30-2023 14:14-0400 Respiratory rate 18 /min Dr. Ramone Smiley Work Phone: [facility] 12-30-2023 14:14-0400 SaO2% (BldA) [Mass fraction] 95 % Dr. Ramone Smiley Work Phone: [facility] 12-30-2023 14:14-0400 Systolic blood pressure 131 mm[Hg] Dr. Ramone Smiley Work Phone: [facility] 12-29-2023 07:09-0400 Inhaled oxygen flow rate 2 L/min Dr. Ramone Smiley Work Phone: [facility] 12-28-2023 11:27-0400 Body height 160.[address] Rmaone Smiley Work Phone: [facility] 12-28-2023 11:27-0400 Body mass index (BMI) [Ratio] 27.8 kg/m2 Dr. Ramone Smiley Work Phone: [facility] 12-28-2023 11:27-0400 Body weight 71.[address] Ramone Smiley Work Phone: [facility] 12-27-2023 23:42-0400 Body temperature 97.5 [degF] [facility] 12-27-2023 23:42-0400 Diastolic blood pressure 59 mm[Hg] [facility] 12-27-2023 23:42-0400 Heart rate 77 /min [facility] 12-27-2023 23:42-0400 Respiratory rate 20 /min [facility] 12-27-2023 23:42-0400 SaO2% (BldA) [Mass fraction] 97 % [facility] 12-27-2023 23:42-0400 Systolic blood pressure 159 mm[Hg] [facility] 12-27-2023 22:06-0400 Body height 160.02 cm [facility] 12-27-2023 22:06-0400 Body mass index (BMI) [Ratio] 29.5 kg/m2 [facility] 12-27-2023 22:06-0400 Body weight 75.6 kg [facility] 08-17-2023 13:26-0500 Body temperature 97.1 [degF] Dr. Ramone Smiley Work Phone: [facility] 08-17-2023 13:26-0500 Diastolic blood pressure 65 mm[Hg] Dr. Ramone Smiley Work Phone: [facility] 08-17-2023 13:26-0500 Heart rate 84 /min Dr. Ramone Smiley Work Phone: [facility] 08-17-2023 13:26-0500 Respiratory rate 18 /min Dr. Ramone Smiley Work Phone: [facility] 08-17-2023 13:26-0500 SaO2% (BldA) [Mass fraction] 98 % Dr. Ramone Smiley Work Phone: [facility] 08-17-2023 13:26-0500 Systolic blood pressure 140 mm[Hg] Dr. Ramone Smiley Work Phone: [facility] 08-14-2023 13:28-0500 Body height 160.[address] Ramone Smiley Work Phone: [facility] 08-14-2023 13:28-0500 Body weight 60.[address] Ramone Smiley Work Phone: [facility] 08-13-2023 15:22-0500 Body mass index (BMI) [Ratio] 23.4 kg/m2 Dr. Ramone Smiley Work Phone: [facility] 08-13-2023 14:18-0500 Body temperature 98.6 [degF] Dr. Ramone Smiley Work Phone: [facility] 08-13-2023 14:18-0500 Diastolic blood pressure 59 mm[Hg] Dr. Ramone Smiley Work Phone: [facility] 08-13-2023 14:18-0500 Heart rate 107 /min Dr. Ramone Smiley Work Phone: [facility] 08-13-2023 14:18-0500 Respiratory rate 20 /min Dr. Ramone Smiley Work Phone: [facility] 08-13-2023 14:18-0500 SaO2% (BldA) [Mass fraction] 97 % Dr. Ramone Smiley Work Phone: [facility] 08-13-2023 14:18-0500 Systolic blood pressure 152 mm[Hg] Dr. Ramone Smiley Work Phone: 4(564)042-260255 [place] [address] 08-13-2023 10:03-0500 Body height 160.[address] Ramone Smiley Work Phone: [facility] 08-13-2023 10:03-0500 Body mass index (BMI) [Ratio] 24.5 kg/m2 Dr. Ramone Smiley Work Phone: 4(989)509-852255 [place] [address] 08-13-2023 10:03-0500 Body weight [address] Ramone Smiley Work Phone: [facility] 08-07-2023 20:23-0500 Body temperature 97.6 [degF] Dr. Ramoen Smiley Work Phone: [facility] 08-07-2023 20:23-0500 Diastolic blood pressure 51 mm[Hg] Dr. Ramone Smiley Work Phone: [facility] 08-07-2023 20:23-0500 Heart rate 87 /min Dr. Ramone Smiley Work Phone: [facility] 08-07-2023 20:23-0500 Respiratory rate 18 /min Dr. Ramone Smiley Work Phone: 1(813)842-210355 [place] [address] 08-07-2023 20:23-0500 SaO2% (BldA) [Mass fraction] 98 % Dr. Ramone Smiley Work Phone: [facility] 08-07-2023 20:23-0500 Systolic blood pressure 115 mm[Hg] Dr. Ramone Smiley Work Phone: 7(535)062-802955 [place] [address] 07-19-2023 01:01-0500 Diastolic blood pressure 61 mm[Hg] Dr. Ramone Smiley Work Phone: 8(702)202-697855 [place] [address] 07-19-2023 01:01-0500 Heart rate 101 /min Dr. Ramone Smiley Work Phone: 9(164)965-370093 [place] [address] 07-19-2023 01:01-0500 Respiratory rate 20 /min Dr. Ramone Smiley Work Phone: 4(015)350-339635 [address] 07-19-2023 01:01-0500 Systolic blood pressure 145 mm[Hg] Dr. Ramone Smiley Work Phone: 9(541)521-620635 [address] 07-18-2023 23:28-0500 Body mass index (BMI) [Ratio] 25.7 kg/m2 Dr. Ramone Smiley Work Phone: 8(643)723-616135 [address] 07-18-2023 23:28-0500 Body weight 65.[address] Ramone Smiley Work Phone: 5(237)788-106855 [place] [address] 07-18-2023 22:47-0500 Body temperature 97.6 [degF] Dr. Ramone Smiley Work Phone: [facility] 07-18-2023 22:47-0500 SaO2% (BldA) [Mass fraction] 96 % Dr. Ramone Smiley Work Phone: 1(215)925-845455 [place] [address] 07-18-2023 22:44-0500 Body height 160.[address] Ramone Smiley Work Phone: 3(455)525-055755 [place] [address] 07-15-2023 13:24-0500 Body temperature 98.2 [degF] Dr. Ramone Smiley Work Phone: [facility] 07-15-2023 13:24-0500 Diastolic blood pressure 74 mm[Hg] Dr. Ramone Smiley Work Phone: [facility] 07-15-2023 13:24-0500 Heart rate 89 /min Dr. Ramone Smiley Work Phone: [facility] 07-15-2023 13:24-0500 SaO2% (BldA) [Mass fraction] 92 % Dr. Ramone Smiley Work Phone: [facility] 07-15-2023 13:24-0500 Systolic blood pressure 122 mm[Hg] Dr. Ramone Smiley Work Phone: [facility] 01-28-2023 16:36-0400 Diastolic blood pressure 63 mm[Hg] [facility] 01-28-2023 16:36-0400 Heart rate 75 /min [facility] 01-28-2023 16:36-0400 Systolic blood pressure 170 mm[Hg] [facility] 01-28-2023 14:54-0400 Body height 160.02 cm [facility] 01-28-2023 14:54-0400 Body mass index (BMI) [Ratio] 26.9 kg/m2 [facility] 01-28-2023 14:54-0400 Body temperature 97.8 [degF] [facility] 01-28-2023 14:54-0400 Body weight 69 kg [facility] 01-28-2023 14:54-0400 Respiratory rate 25 /min [facility] 01-28-2023 14:54-0400 SaO2% (BldA) [Mass fraction] 97 % [facility] 07-14-2022 18:11-0500 Diastolic blood pressure 64 mm[Hg] [facility] Work Phone: 07-14-2022 18:11-0500 Heart rate 73 /min [facility] Work Phone: 07-14-2022 18:11-0500 Respiratory rate 18 /min [facility] Work Phone: 07-14-2022 18:11-0500 SaO2% (BldA) [Mass fraction] 98 % [facility] Work Phone: 07-14-2022 18:11-0500 Systolic blood pressure 174 mm[Hg] [facility] Work Phone: 07-14-2022 11:59-0500 Body height 160.02 cm [facility] Work Phone: 07-14-2022 11:59-0500 Body mass index (BMI) [Ratio] 31.1 kg/m2 [facility] Work Phone: 07-14-2022 11:59-0500 Body temperature 97.2 [degF] [facility] Work Phone: 07-14-2022 11:59-0500 Body weight 79.83 kg [facility] Work Phone: 05-07-2022 13:26-0400 Body height 158.1 cm 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 Work Phone: [facility] 05-07-2022 13:26-0400 Body temperature 97.2 [degF] 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 Work Phone: [facility] 05-07-2022 13:26-0400 Body weight 73.71 kg [place] Iraheta [employer]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[employer] Work Phone: [facility] 05-07-2022 13:26-0400 Diastolic blood pressure 68 mm[Hg] [place] Iraheta 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 Work Phone: [facility] 05-07-2022 13:26-0400 Heart rate 66 /min [place] Iraheta 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 Work Phone: [facility] 05-07-2022 13:26-0400 Systolic blood pressure 160 mm[Hg] [place] Iraheta 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 Work Phone: [facility] 02-26-2022 09:43-0400 Body height 160.[address] Ramone Smiley Work Phone: [facility] Work Phone: 02-26-2022 09:43-0400 Body mass index (BMI) [Ratio] 28.1 kg/m2 Dr. Ramone Smiley Work Phone: [facility] Work Phone: 02-26-2022 09:43-0400 Body temperature 97.9 [degF] Dr. Ramone Smiley Work Phone: [facility] Work Phone: 02-26-2022 09:43-0400 Body weight 72.[address] Ramone Smiley Work Phone: [facility] Work Phone: 02-26-2022 09:43-0400 Diastolic blood pressure 80 mm[Hg] Dr. Ramone Smiley Work Phone: [facility] Work Phone: 02-26-2022 09:43-0400 Heart rate 70 /min Dr. Ramone Smiley Work Phone: [facility] Work Phone: 02-26-2022 09:43-0400 Respiratory rate 14 /min Dr. Ramone Smiley Work Phone: [facility] Work Phone: 02-26-2022 09:43-0400 SaO2% (BldA) [Mass fraction] 98 % Dr. Ramone Smiley Work Phone: [facility] Work Phone: 02-26-2022 09:43-0400 Systolic blood pressure 134 mm[Hg] Dr. Ramone Smiley Work Phone: [facility] Work Phone: 12-17-2021 13:23-0400 Diastolic blood pressure 60 mm[Hg] Dr. Ramone Smiley Work Phone: [facility] Work Phone: 12-17-2021 13:23-0400 Systolic blood pressure 154 mm[Hg] Dr. Ramone Smiley Work Phone: [facility] Work Phone: 12-10-2021 10:34-0400 Diastolic blood pressure 70 mm[Hg] Dr. Ramone Smiley Work Phone: [facility] Work Phone: 12-10-2021 10:34-0400 Systolic blood pressure 124 mm[Hg] Dr. Ramone Smiley Work Phone: [facility] Work Phone: 12-06-2021 15:22-0400 Body mass index (BMI) [Ratio] 30.2 kg/m2 Dr. Ramone Smiley Work Phone: [facility] Work Phone: 12-06-2021 15:22-0400 Body weight 77.[address] Ramone Smiley Work Phone: [facility] Work Phone: 12-06-2021 15:22-0400 Diastolic blood pressure 84 mm[Hg] Dr. Ramone Smiley Work Phone: [facility] Work Phone: 12-06-2021 15:22-0400 Systolic blood pressure 122 mm[Hg] Dr. Ramone Smiley Work Phone: [facility] Work Phone: 12-06-2021 15:22-0400 Body height 160.[address] Ramone Smiley Work Phone: [facility] Work Phone: 12-06-2021 15:22-0400 Body mass index (BMI) [Ratio] 30.2 kg/m2 Dr. Ramone Smiley Work Phone: [facility] Work Phone: 12-06-2021 15:22-0400 Body weight 77.[address] Ramone Smiley Work Phone: [facility] Work Phone: 12-06-2021 15:22-0400 Diastolic blood pressure 84 mm[Hg] Dr. Ramone Smiley Work Phone: [facility] Work Phone: 12-06-2021 15:22-0400 Systolic blood pressure 122 mm[Hg] Dr. Ramone Smiley Work Phone: [facility] Work Phone: 12-04-2021 11:22-0400 Diastolic blood pressure 70 mm[Hg] Dr. Ramone Smiley Work Phone: [facility] Work Phone: 12-04-2021 11:22-0400 Systolic blood pressure 124 mm[Hg] Dr. Ramone Smiley Work Phone: [facility] Work Phone: 12-04-2021 11:22-0400 Diastolic blood pressure 70 mm[Hg] Dr. Ramone Smiley Work Phone: [facility] Work Phone: 12-04-2021 11:22-0400 Systolic blood pressure 124 mm[Hg] Dr. Ramone Smiley Work Phone: [facility] Work Phone: 12-02-2021 14:03-0400 Diastolic blood pressure 60 mm[Hg] Dr. Ramone Smiley Work Phone: [facility] Work Phone: 12-02-2021 14:03-0400 Systolic blood pressure 138 mm[Hg] Dr. Ramone Smiley Work Phone: [facility] Work Phone: 12-02-2021 14:03-0400 Diastolic blood pressure 60 mm[Hg] Dr. Ramone Smiley Work Phone: [facility] Work Phone: 12-02-2021 14:03-0400 Systolic blood pressure 138 mm[Hg] Dr. Ramone Smiley Work Phone: [facility] Work Phone: 01-13-2017 14:21-0400 BMI [...] Pulse (Heart Rate) 70 /min Zuleika Heaton [facility] Work Phone: 01-13-2017 14:21-0400 [...] Start: 03-25-2025 Dr. Melba Hartmann MD - [facility] Work Phone: Start: 03-24-2025 Dr. Melba Hartmann MD - [facility] Work Phone: Start: 03-23-2025 Dr. Melba Hartmann MD - [facility] Work Phone: Start: 03-22-2025 Dr. Melba Hartmann MD - [facility] Work Phone: Start: 03-21-2025 ambulatory Abigail Foster Facility :[facility] Start: 03-21-2025 End: 03-25-2025 Evaluation and management of inpatient Dr. Ramone Smiley MD Work Phone: -Medical Surgical 3 Start: 03-21-2025 End: 03-25-2025 Dr. Abigail Foster MD -[facility] Surgical 3 Work Phone: Start: 03-09-2025 Whitney Cao FLATTENING MACHINE OPERATOR-C -[facility] Work Phone: Start: 03-09-2025 ambulatory Whitney Cao FLATTENING MACHINE OPERATOR Facili ty:[facility] Start: 03-07-2025 ambulatory Whitney Cao FLATTENING MACHINE OPERATOR Facili ty:[facility] Start: 03-07-2025 Dr. Se Good MD -[facility] Start: 03-07-2025 End: 03-07-[address] Ramone Smiley MD Work Phone: -Cardiovascular Services Start: 03-07-2025 End: 03-07-2025 Whitney Cao FLATTENING MACHINE OPERATOR-C -Cardiovascular Services Work Phone: Start: 03-07-2025 End: 03-07-2025 ambulatory Whitney Cao NP Facility:[facility] Start: 03-04-2025 End: 03-04-2025 Dr. Ramone Smiley MD Work Phone: -Emergency Department Work Phone: Start: 03-04-2025 End: 03-04-2025 Emergency department patient visit Dr. Ramone Smiley MD Work Phone: -Emergency Department Start: 02-28-2025 Dr. Asha Anguiano MD -[facility] Work Phone: Start: 02-18-2025 End: 02-19-2025 Dr. Ramone Smiley MD Work Phone: -Emergency Department Work Phone: Start: 02-18-2025 End: 02-19-2025 Emergency department patient visit Dr. Ramone Smiley MD Work Phone: [facility] Work Phone: Start: 02-17-2025 Dr. Heydi Amaya MD -[facility] Work Phone: Start: 02-16-2025 Dr. Heydi Amaya MD -[facility] Work Phone: Start: 02-15-2025 End: 02-17-2025 ambulatory Nestor Bartlett Facility:[facility] Start: 02-15-2025 End: 02-17-[address] Ramone Smiley MD Work Phone: [facility] Work Phone: Start: 02-15-2025 End: 02-17-2025 Dr. Nestor Bartlett DO -[facility] Surgical 3 Work Phone: Start: 02-13-2025 Dr. Lucio Borden [facility] Work Phone: Start: 02-12-2025 Dr. Lucio Borden [facility] Work Phone: Start: 02-11-2025 Dr. Lucio Borden [facility] Work Phone: Start: 02-10-2025 Dr. Lucio Borden [facility] Work Phone: Start: 02-09-2025 ambulatory Lucio Borden Facilit y:[facility] Start: 02-09-2025 End: 02-13-2025 Evaluation and management of inpatient Dr. Ramone Smiley MD Work Phone: [facility] Work Phone: Start: 02-09-2025 End: 02-13-2025 Tono Gomez [facility] Work Phone: Start: 02-07-2025 End: 02-07-[address] Ramone Smiley MD Work Phone: [facility] Work Phone: Start: 02-07-2025 End: 02-07-2025 Dr. Ramone Smiley MD -Laboratory [facility] Start: 02-07-2025 End: 02-07-2025 ambulatory Ramone Smiley Facility:[facility] Start: 02-06-2025 Dr. Luc[address] Borden DO [facility] Work Phone: Start: 02-05-2025 Dr. Lucio Borden [facility] Work Phone: Start: 02-04-2025 Dr. Lucio Borden [facility] Work Phone: Start: 02-04-2025 ambulatory Ramone Smiley Facility:[facility] Start: 02-04-2025 End: 02-06-2025 Evaluation and management of inpatient Dr. Ramone Smiley MD Work Phone: [facility] Work Phone: Start: 02-04-2025 End: 02-06-2025 Dr. Lucio Borden DO -[facility] Work Phone: Start: 01-31-2025 End: 01-31-2025 Whitney SUGGS -[facility] Work Phone: Start: 01-31-2025 End: 01-31-[address] Ramone Smiley MD Work Phone: [facility] Work Phone: Start: 01-26-2025 End: 01-26-2025 Dr. Ramone Smiley MD Work Phone: -Emergency Department Work Phone: Start: 01-26-2025 End: 01-26-2025 Emergency department patient visit Dr. Ramone Smiley MD Work Phone: [facility] Work Phone: Start: 01-24-2025 Dr. Melba Hartmann MD - [facility] Work Phone: Start: 01-23-2025 Dr. Becca Silverman MD -[facility] Start: 01-23-2025 Dr. Melba Hartmann MD - [facility] Work Phone: Start: 01-22-2025 Dr. Melba Hartmann MD - [facility] Work Phone: Start: 01-21-2025 Dr. Melba Hartmann MD - [facility] Work Phone: Start: 01-20-2025 ambulatory Ramone Smiley Facility:[facility] Start: 01-20-2025 Dr. Marcelina Soto MD -[facility] Start: 01-20-2025 ambulatory Sandeep Carlton Facili ty:[facility] Start: 01-20-2025 End: 01-24-2025 Evaluation and management of inpatient Dr. Ramone Smiley MD Work Phone: [facility] Work Phone: Start: 01-20-2025 End: 01-24-2025 Dr. Melba Hartmann MD -Progressive Care Unit Work Phone: Start: 01-19-2025 End: 01-19-[address] Ramone Smiley MD Work Phone: [facility] Work Phone: Start: 01-19-2025 End: 01-19-2025 Dr. Ramone Smiley MD -Laboratory [facility] Start: 01-19-2025 End: 01-19-2025 ambulatory Ramone Smiley Facility:[facility] Start: 01-15-2025 End: 01-15-2025 [facility] Start: 01-15-2025 End: 01-15-2025 Emergency department patient visit Dr. Ramone Smiley MD Work Phone: -Emergency Department Work Phone: Start: 01-07-2025 End: 01-07-2025 Dr. [facility] Work [facility] Start: 01-07-2025 End: 01-07-2025 Emergency department patient visit Dr. Ramone Smiley MD Work Phone: -Emergency Department Work Phone: Start: 11-21-2024 ambulatory Ramone Smiley Facility:[facility] Start: 11-21-[address] Ramone Smiley MD -Physical Therapy Work Phone: Start: 11-21-2024 Dr. Ramone Smiley MD -Phys ical Therapy Work Phone: Start: 09-27-2024 End: 09-27-[address] Ramone Smiley MD -Laboratory, [facility] Start: 09-27-2024 End: 09-27-2024 Dr. Ramone Smiley MD -Laboratory [facility] Start: 09-27-2024 End: 09-27-2024 ambulatory Ramone Smiley Facility:[facility] Start: 07-19-2024 End: 07-19-2024 ambulatory Asha Anguiano Facility:[facility] Start: 06-19-2024 End: 06-20-2024 Emergency department patient visit Billy Kothari Facility:[facility] Start: 05-30-2024 End: 05-30-2024 Emergency department patient visit Kwaku Marcial Facility:[facility] Start: 05-18-2024 End: 05-18-2024 ambulatory Jason BHATTI Facility:[facility] Start: 04-18-2024 End: 04-18-2024 ambulatory Ramone Smiley Facility:[facility] Start: 12-30-2023 Non-patient / Non-visit Dr. Richar Smiley Work Phone: [facility] Work Phone: Start: 12-29-2023 Non-patient / Non-visit Dr. Richar Smiley Work Phone: [facility] Work Phone: Start: 12-28-2023 Non-patient / Non-visit Dr. Richar Smiley Work Phone: [facility] Work Phone: Start: 12-27-2023 End: 12-30-2023 Evaluation and management of inpatient [facility]-Medical Surgical 3 Work Phone: Start: 10-26-2023 End: 10-26-[address] Ramone Smiley Work Phone: [facility] Work Phone: Start: 10-26-2023 End: 10-26-[address] Ramone Smiley Work Phone: [facility] Start: 08-17-2023 Non-patient / Non-visit Dr. Richar Smiley Work Phone: [facility] Work Phone: Start: 08-16-2023 Non-patient / Non-visit Dr. Richar Smiley Work Phone: [facility] Work Phone: Start: 08-15-2023 Non-patient / Non-visit Dr. Richar Smiley Work Phone: [facility] Work Phone: Start: 08-14-2023 Non-patient / Non-visit Dr. Richar Smiley Work Phone: [facility] Work Phone: Start: 08-13-2023 End: 08-17-2023 Evaluation and management of inpatient Dr. Ramone Smiley Work Phone: [facility]-Progressive Care Unit Work Phone: Start: 08-07-2023 End: 08-07-2023 Emergency department patient visit Dr. Ramone Smiley Work Phone: [facility]-Emergency Department Work Phone: Start: 07-18-2023 End: 07-19-2023 Emergency department patient visit Dr. Ramone Smiley Work Phone: [facility]-Emergency Department Work Phone: Start: 07-15-2023 End: 07-15-[address] Ramone Smiley Work Phone: [facility] Work Phone: Start: 06-01-2023 End: 06-01-[address] [facility] Work [facility]: Start: 05-27-2023 End: 05-27-[address] Ramone Smiley Work Phone: [facility] Work Phone: Start: 05-15-2023 End: 05-15-2023 Patient encounter procedure Dr[facility] Ram[facility] Smiley [facility] [place] Work Phone: Start: 03-24-2023 End: 03-24-2023 ambulatory [facility] Work Phone: Start: 03-24-2023 End: 03-24-2023 Patient encounter procedure [facility], [facility] Work Phone: Start: 02-05-2023 End: 02-05-2023 ambulatory [facility] Work Phone: Start: 02-05-2023 End: 02-05-2023 Patient encounter procedure [facility]Ultrasound, [facility] Start: 01-28-2023 End: 01-28-2023 Emergency department patient visit [facility]Emergency Department Start: 01-28-2023 End: 01-28-2023 ambulatory [facility] Work Phone: Start: 01-28-2023 End: 01-28-[address] [facility] [facility] Start: 12-09-2022 End: 12-09-2022 ambulatory [facility] Work Phone: Start: 12-09-2022 End: 12-09-2022 Patient encounter procedure [facility] Start: 08-13-2022 End: 08-13-2022 ambulatory [facility] Work Phone: Start: 08-13-2022 End: 08-13-2022 Patient encounter procedure [facility]Outpatient Breast Imaging Start: 07-14-2022 End: 07-14-2022 Emergency department patient visit [facility] Start: 05-07-2022 End: 05-07-2022 ambulatory 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 APRN.[employer] Work Phone: Hematology/Oncology Comment on above: Iron deficiency anem ia due to chronic blood loss (Primary Dx) Start: 05-07-2022 End: 05-07-2022 Patient encounter procedure 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 APRN.[employer] Work Phone: [facility] Start: 02-27-2022 End: 02-27-[address] Ramone Smiley Work Phone: [facility] Start: 02-26-2022 End: 02-26-[address] Ramone Smiley Work Phone: [facility] Start: 02-10-2022 Telephone encounter Joseph sanders DO Work Phone: Hematology/Oncology Comment on above: Results (CBC and iro n levels) Start: 01-31-2022 Orders Only Joseph Lim Work Phone: Hematology/Oncology Comment on above: Iron deficiency anem ia due to chronic blood loss (Primary Dx) Start: 12-17-2021 End: 12-17-[address] Ramone Smiley Work Phone: [facility] Start: 12-10-2021 End: 12-10-[address] Ramone Smiley Work Phone: [facility] Start: 12-06-2021 End: 12-06-[address] Ramone Smiley Work Phone: [facility] Start: 12-04-2021 End: 12-04-[address] Ramone Smiley Work Phone: [facility] Start: 12-02-2021 End: 12-02-[address] Ramone Smiley Work Phone: [facility]-Laboratory, Specimen Start: 12-02-2021 End: 12-02-[address] Ramone Smiley Work Phone: [facility] Start: 09-29-2021 Telephone encounter Joseph sanders DO Work Phone: Hematology/Oncology Comment on above: Results; Follow Up Start: 09-13-2021 End: 09-13-[address] Ramone Smiley Work Phone: [facility]-Nuclear Medicine, [facility] Start: 08-21-[address] Ramone Smiley Work Phone: [facility] Start: 08-12-2021 End: 08-12-[address] Ramone Smiley Work Phone: [facility] Start: 03-14-2021 Telephone encounter Joseph sanders DO Work Phone: Hematology/Oncology Comment on above: Results Start: 01-18-2018 Ambulatory [facility] Procedures Date Procedure Procedure Detail Performing [...] Nucleated red blood cell count procedure Dr. aRmone Smiley MD Work Phone: Start: 03-04-2025 Platelet [...] Phone: Start: 01-26-[address] aRmone Smiley MD Work Phone: Start: 01-26-2025 Mean [...] BRODIE Good MD Start: 08-29-2015 End: 08-29-2015 HEAD SCREEN WORKER Se Good MD Start: 08-29-2015 End: 08-29-2015 [...] Activity Detail Author Start: 03-25-[address] [facility] Start: 03-24-2025 Referral to service [facility] Start: 03-24-2025 [facility] Start: 03-23-2025 [facility] Start: 03-23-2025 [facility] Start: 03-23-2025 [facility] Start: 03-22-2025 Aspiration precautions [facility] Start: 03-22-2025 Speech therapy assessment [facility] Start: 03-22-2025 Following clinical pathway protocol [facility] Start: 03-22-2025 Assessment of risk o f venous thromboembolism [facility] Start: 03-22-2025 Care regimes management [facility] Start: 03-22-2025 Fall prevention [facility] Start: 03-22-2025 Inhalation therapy procedure [facility] Start: 03-22-2025 Insertion of cathete r into peripheral vein [facility] Start: 03-22-2025 Introduction of urin david catheter [facility] Start: 03-22-2025 Measuring intake and output [facility] Start: 03-22-2025 Notification of physician [facility] Start: 03-22-2025 Oxygen therapy [facility] Start: 03-22-2025 Providing care accor ding to standard [facility] Start: 03-22-2025 Provision of activit y privileges [facility] Start: 03-22-2025 Referral to occupati onal therapist [facility] Start: 03-22-2025 Referral to service [facility] Start: 03-22-2025 End: 03-22-2025 [facility] Start: 03-22-2025 Patient referral to dietitian [facility] Start: 03-21-2025 Verification routine [facility] Start: 03-21-2025 Admission procedure [facility] Start: 03-21-2025 Hospital admission, emergency, from emergency room, medical nature [facility] Start: 03-21-2025 End: 03-22-2025 [facility] Start: 03-07-2025 Cardiovascular stres s test using pharmacologic stress agent [facility] Start: 03-07-2025 NM Heart Views W str ess and W radionuclide IV [facility] Start: 03-04-2025 [facility] Start: 03-04-2025 End: 03-04-2025 [facility] Start: 03-04-2025 Blood culture [facility] Start: 02-19-2025 [facility] Start: 02-18-2025 [facility] Start: 02-17-[address] [facility] Start: 02-17-2025 [facility] Start: 02-16-2025 End: 02-16-2025 [facility] Start: 02-15-2025 [facility] Start: 02-15-2025 Following clinical pathway protocol [facility] Start: 02-15-2025 Ambulation without limitation [facility] Start: 02-15-2025 Assessment of risk o f venous thromboembolism [facility] Start: 02-15-2025 Care regimes management [facility] Start: 02-15-2025 Insertion of cathete r into peripheral vein [facility] Start: 02-15-2025 Notification of physician [facility] Start: 02-15-2025 Oxygen therapy [facility] Start: 02-15-2025 Providing care accor ding to standard [facility] Start: 02-15-2025 Referral to occupati onal therapist [facility] Start: 02-15-2025 Referral to service [facility] Start: 02-15-2025 [facility] Start: 02-15-2025 Verification routine [facility] Start: 02-15-2025 Admission procedure [facility] Start: 02-15-2025 Hospital admission, emergency, from emergency room, medical nature [facility] Start: 02-15-2025 [facility] Start: 02-15-2025 End: 02-15-2025 [facility] Start: 02-15-2025 Inhalation therapy procedure [facility] Start: 02-13-[address] [facility] Start: 02-11-2025 Inhalation therapy procedure [facility] Start: 02-10-2025 [facility] Start: 02-10-2025 Referral to service [facility] Start: 02-09-2025 Care regimes management [facility] Start: 02-09-2025 Notification of physician [facility] Start: 02-09-2025 [facility] Start: 02-09-2025 Following clinical pathway protocol [facility] Start: 02-09-2025 Ambulation without limitation [facility] Start: 02-09-2025 Assessment of risk o f venous thromboembolism [facility] Start: 02-09-2025 Catheterization of vein [facility] Start: 02-09-2025 Insertion of cathete r into peripheral vein [facility] Start: 02-09-2025 Oxygen therapy [facility] Start: 02-09-2025 Providing care accor ding to standard [facility] Start: 02-09-2025 Referral to occupati onal therapist [facility] Start: 02-09-2025 Referral to service [facility] Start: 02-09-2025 [facility] Start: 02-09-2025 Verification routine [facility] Start: 02-09-2025 Admission procedure [facility] Start: 02-09-2025 Hospital admission, emergency, from emergency room, medical nature [facility] Start: 02-09-2025 [facility] Start: 02-09-2025 Patient referral to dietitian [facility] Start: 02-06-[address] [facility] Start: 02-06-2025 Referral to service [facility] Start: 02-05-2025 [facility] Start: 02-04-2025 End: 02-04-2025 [facility] Start: 02-04-2025 Care regimes management [facility] Start: 02-04-2025 Notification of physician [facility] Start: 02-04-2025 Following clinical pathway protocol [facility] Start: 02-04-2025 Care planning and pr oblem solving actions [facility] Start: 02-04-2025 Ambulation without limitation [facility] Start: 02-04-2025 Assessment of risk o f venous thromboembolism [facility] Start: 02-04-2025 Catheterization of vein [facility] Start: 02-04-2025 Inhalation therapy procedure [facility] Start: 02-04-2025 Insertion of cathete r into peripheral vein [facility] Start: 02-04-2025 Oxygen therapy [facility] Start: 02-04-2025 Providing care accor ding to standard [facility] Start: 02-04-2025 [facility] Start: 02-04-2025 Hospital admission, emergency, from emergency room, medical nature [facility] Start: 02-04-2025 Verification routine [facility] Start: 02-04-2025 Admission procedure [facility] Start: 02-04-2025 [facility] Start: 02-04-2025 [facility] Start: 01-26-2025 [facility] Start: 01-24-2025 Referral to service [facility] Start: 01-24-[address] [facility] Start: 01-21-2025 [facility] Start: 01-21-2025 Referral to risk control director [facility] Start: 01-20-2025 Oxygen therapy [facility] Start: 01-20-2025 Blood culture [facility] Start: 01-20-2025 Notification of physician [facility] Start: 01-20-2025 [facility] Start: 01-20-2025 End: 01-20-2025 [facility] Start: 01-20-2025 Application of intermittent pneumatic compression device [facility] Start: 01-20-2025 Following clinical pathway protocol [facility] Start: 01-20-2025 Cardiac monitoring [facility] Start: 01-20-2025 Catheterization of vein [facility] Start: 01-20-2025 Notification of physician [facility] Start: 01-20-2025 Vital signs measurements [facility] Start: 01-20-2025 Admission procedure [facility] Start: 01-20-2025 End: 01-20-2025 [facility] Start: 01-20-2025 Care regimes management [facility] Start: 01-20-2025 Inhalation therapy procedure [facility] Start: 01-20-2025 Patient referral to dietitian [facility] Start: 01-15-2025 [facility] Start: 01-15-2025 [facility] Start: 01-07-2025 [facility] Start: 12-30-[address] [facility] Start: 12-30-2023 Inhalation therapy procedure [facility] Start: 12-28-2023 Application of intermittent pneumatic compression device [facility] Start: 12-28-2023 Provision of overbed trapeze [facility] Start: 12-28-2023 Recommendation to continue with treatment [facility] Start: 12-28-2023 Ambulation therapy management [facility] Start: 12-28-2023 Application of device [facility] Start: 12-28-2023 Assessment of risk o f venous thromboembolism [facility] Start: 12-28-2023 Catheterization of vein [facility] Start: 12-28-2023 Exercises [facility] Start: 12-28-2023 Following clinical pathway protocol [facility] Start: 12-28-2023 Introduction of urin david catheter [facility] Start: 12-28-2023 Measuring intake and output [facility] Start: 12-28-2023 Neurovascular assessment [facility] Start: 12-28-[address] [facility] Start: 12-28-2023 Procedure discontinued [facility] Start: 12-28-2023 Provision of activit y privileges [facility] Start: 12-28-2023 Referral to occupati onal therapist [facility] Start: 12-28-2023 Referral to service [facility] Start: 12-28-2023 Vital signs measurements [facility] Start: 12-28-2023 Wound care [facility] Start: 12-28-2023 [facility] Start: 12-28-2023 Blood chemistry [facility] Start: 12-28-2023 Complete blood count [facility] Start: 12-28-2023 Following clinical pathway protocol [facility] Start: 12-28-2023 Assessment of risk o f venous thromboembolism [facility] Start: 12-28-2023 Care regimes management [facility] Start: 12-28-2023 Consultation [facility] Start: 12-28-2023 Incentive spirometry [facility] Start: 12-28-2023 Insertion of cathete r into peripheral vein [facility] Start: 12-28-2023 Notification of physician [facility] Start: 12-28-2023 Oxygen therapy [facility] Start: 12-28-2023 Providing care accor ding to standard [facility] Start: 12-28-2023 Provision of activit y privileges [facility] Start: 12-28-2023 Referral to occupati onal therapist [facility] Start: 12-28-2023 Referral to service [facility] Start: 12-28-2023 [facility] Start: 12-27-2023 Verification routine [facility] Start: 12-27-2023 Admission procedure [facility] Start: 08-17-2023 Referral to service [facility] Start: 08-17-[address] [facility] Start: 08-16-2023 [facility] Start: 08-13-2023 Following clinical pathway protocol [facility] Start: 08-13-2023 Assessment of risk o f venous thromboembolism [facility] Start: 08-13-2023 Care regimes management [facility] Start: 08-13-2023 Insertion of cathete r into peripheral vein [facility] Start: 08-13-2023 Measuring intake and output [facility] Start: 12-14-2023 Notification of physician [facility] Start: 08-13-2023 Providing care accor ding to standard [facility] Start: 08-13-2023 Provision of activit y privileges [facility] Start: 08-13-2023 Referral to occupati onal therapist [facility] Start: 08-13-2023 Referral to service [facility] Start: 08-13-2023 [facility] Start: 08-13-2023 Admission procedure [facility] Start: 08-13-2023 Verification routine [facility] Start: 08-13-2023 Bacteria identified in Blood by Culture Blood Culture [facility] Start: 08-13-2023 Bacteria identified in Urine by Culture Urine Culture [facility] Start: 08-13-2023 Hospital admission, emergency, from emergency room, medical nature [facility] Start: 08-13-2023 [facility] Start: 08-13-2023 End: 08-13-2023 Blood culture [facility] Start: 08-13-2023 Inhalation therapy procedure [facility] Start: 08-13-2023 Patient referral to dietitian [facility] Start: 08-07-2023 [facility] Start: 07-19-2023 End: 07-19-2023 [facility] Start: 07-18-2023 Measurement of occul t blood in stool specimen using immunoassay [facility] Start: 07-18-2023 Bacteria identified in Urine by Culture Urine Culture [facility] Start: 05-07-2022 BP CONTROLLED (<130/80) BP CONTROLLE D (<130/80) [facility] Start: 05-01-2022 Influenza vaccination C [facility] Start: 03-28-2022 COVID-19 VACCINE (4 - Booster for Moderna series) COVID-19 VACCINE (4 - Booster for Moderna series) [facility] Start: 09-29-2021 End: 09-29-2022 MONOCLONAL PROTEIN, SERUM (BLOOD) MONOCLONAL PROTEIN, SERUM (BLOOD) Lab Routine Anemia, unspecified type Expected: 09/29/2021, Expires: 09/29/2022 [facility] Work Phone: Comment on above: Expected: 09/29/2021 , Expires: 09/29/2022 Start: 09-29-2021 End: 09-29-2022 PROTEIN ELECTROPHORESIS SERUM W/INTERP PROTEIN ELECTROPHORESIS SERUM W/INTERP Lab Routine Anemia, unspecified type Expected: 09/29/2021, Expires: 09/29/2022 [facility] Work Phone: Comment on above: Expected: 09/29/2021 , Expires: 09/29/2022 Start: 08-31-2021 ADVANCE DIRECTIVE DISCUSSION ADVANCE DIRECTIVE DISCUSSION [facility] Start: 05-16-2021 COVID-19 VACCINE (3 - Booster for Moderna series) COVID-19 VACCINE (3 - Booster for Moderna series) [facility] Start: 05-04-2018 Urine microalbumin profile DTAP,TDAP,TD (2 - Td or Tdap) [facility] Start: 08-16-2016 3 comp foot exam completed DIABETIC FOOT EXAM [facility] Start: 10-09-2015 End: 04-02-2016 Follow Up Appt 6 months Follow Up Appt 6 months [facility] Work Phone: Start: 10-09-2015 End: 04-02-2016 MMM MMM [facility] Work Phone: Start: 08-29-2015 End: 08-29-2015 HEAD SCREEN WORKER HEAD SCREEN WORKER [facility] Work Phone: Start: 08-29-2015 End: 08-29-2015 Electrocardiogram, complete EKG (In office) [facility] Work Phone: Start: 08-29-2015 End: 08-29-2015 Follow Up Appt 6 weeks Follow Up Appt 6 weeks [facility] Work Phone: Start: 07-01-2014 Hemoglobin A1c/Hemoglobin.total in Blood HBA1C [facility] Start: 06-25-2014 Hepatitis B surface antibody level LDL CHOLESTEROL [facility] Start: 06-17-2014 Hepatitis C antibody , confirmatory test DILATED RETINAL EXAM [facility] Start: 02-12-2013 PNEUMOCOCCAL: 65+ (2 - PCV) PNEUMOCOCCAL: 65+ (2 - PCV) [facility] Start: 02-12-2013 PNEUMOCOCCAL: 65+ (3 - PCV) PNEUMOCOCCAL: 65+ (3 - PCV) [facility] Start: 02-18-2012 SHINGRIX VACCINE (1 of 2) JIMENEZ GRIX VACCINE (1 of 2) [facility] Start: 02-18-2012 SHINGRIX VACCINE (2 of 3) JIMENEZ GRIX VACCINE (2 of 3) [facility] Start: 01-02-1962 ANNUAL PCP TEAM CAR 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 ERIS DISEASE VISIT ANNUAL PCP TEAM CHRONIC DISEASE VISIT [facility] Start: 01-02-1962 BP CONTROLLED (<130/80) BP CONTROLLE D (<130/80) [facility] Start: 01-02-1962 HEPATITIS C SCREENING HEPATITIS C SC REENING [facility] Start: 1957 Adult depression screening assessment DEPRESSION SCREENING [facility] Anion gap measurement [facility] Bacteria identified in Sputum by Respiratory culture [facility] BUN/Creatinine ratio [facility] Calcium [Mass/volume ] in Serum or Plasma [facility] Carbon dioxide, tota l [Moles/volume] in Serum or Plasma [facility] End: 01-31-2023 CBC W Auto Differential panel - Blood CBC + DIFF Lab STAT Iron deficiency anemia due to chronic blood loss Every 3 months for 4 Occurrences starting 01/31/2022 until 01/31/2023 [facility] Work Phone: Comment on above: Every 3 months for 4 Occurrences starting 01/31/2022 until 01/31/2023 End: 09-29-2022 CBC W Auto Differential panel - Blood CBC + DIFF Lab Routine Anemia, unspecified type 1 Occurrences starting 09/29/2021 until 09/29/2022 [facility] Work Phone: Comment on above: 1 Occurrences starti ng 09/29/2021 until 09/29/2022 Chloride [Moles/volu me] in Serum or Plasma [facility] End: 09-29-2022 Comprehensive metabolic 2000 panel - Serum or Plasma COMP METABOLIC PANEL Lab Routine Anemia, unspecified type 1 Occurrences starting 09/29/2021 until 09/29/2022 [facility] Work Phone: Comment on above: 1 Occurrences starti ng 09/29/2021 until 09/29/2022 Creatinine [Moles/vo lume] in Serum or Plasma [facility] Erythrocyte mean corpuscular volume determination [facility] End: 01-31-2023 FERRITIN BLD FERRITIN BLD Lab Routine Iron deficiency anemia due to chronic blood loss Every 3 months for 4 Occurrences starting 01/31/2022 until 01/31/2023 [facility] Work Phone: Comment on above: Every 3 months for 4 Occurrences starting 01/31/2022 until 01/31/2023 Glucose [Mass/volume ] in Serum or Plasma [facility] Hematocrit [Volume Fraction] of Blood [facility] Hemoglobin [Mass/vol ume] in Blood [facility] Hemoglobin A1c/Hemoglobin.total in Blood [facility] End: 01-31-2023 IRON + TIBC IRON + TIBC Lab Routine Iron deficiency anemia due to chronic blood loss Every 3 months for 4 Occurrences starting 01/31/2022 until 01/31/2023 [facility] Work Phone: Comment on above: Every 3 months for 4 Occurrences starting 01/31/2022 until 01/31/2023 Leukocytes [#/volume ] in Blood [facility] Mean corpuscular hemoglobin concentration determination [facility] Mean corpuscular hemoglobin determination [facility] Measurement of renal function [facility] Microorganism identi fied in Unspecified specimen by Culture [facility] Microscopic observat ion [Identifier] in Unspecified specimen by Gram stain [facility] NM Heart Views W str ess and W radionuclide IV [facility] Patient Education [facility] Work Phone: Patient referral [facility] Work Phone: Platelets [#/volume] in Blood [facility] Potassium [Moles/vol ume] in Serum or Plasma [facility] Procalcitonin [Mass/volume] in Serum or Plasma by Immunoassay [facility] Red blood cell count [facility] Red cell distributio n width determination [facility] Sodium [Moles/volume ] in Serum or Plasma [facility] Troponin T.cardiac [Mass/volume] in Serum or Plasma by High sensitivity method [facility] Troponin T.cardiac [Mass/volume] in Serum or Plasma by High sensitivity method [facility] Urea nitrogen [Mass/volume] in Serum or Plasma [facility] Urine culture [facility] Urine culture [facility] Immunizations Immunization Date Immunization Notes Care Provider Larissa cuadra 07-03-2022 influenza, injectabl e, quadrivalent, preservative free Dr. Ramone Smiley MD Work Phone: [facility] 11-26-2021 Covid (Moderna) Dr. Ramone leon MD Work Phone: [facility] 08-22-2015 pneumococcal conjuga te vaccine, [address] Ramone Smiley MD Work Phone: [facility] 07-12-2012 influenza virus vacc ine, unspecified formulation Joseph Rolle DO Work Phone: [facility] 02-13-2012 pneumococcal polysaccharide vaccine, 23 valent Joseph Rolle DO Work Phone: [facility] 12-24-2011 zoster vaccine, live Joseph Chen chatterjee DO Work Phone: [facility] 06-02-2011 influenza virus vacc ine, unspecified formulation Joseph Rolle DO Work Phone: [facility] 08-09-2010 influenza virus vacc ine, unspecified formulation Joseph Aquilino DO Work Phone: [facility] 05-30-2009 influenza virus vacc ine, unspecified formulation Joseph Viktoriai DO Work Phone: [facility] 09-07-2008 influenza virus vacc ine, unspecified formulation Joseph Rolle DO Work Phone: [facility] Work Phone: 05-04-2008 tetanus toxoid, redu octavio diphtheria toxoid, and acellular pertussis vaccine, adsorbed Joseph Rolle DO Work Phone: [facility] Work Phone: 06-28-2007 influenza virus vacc ine, unspecified formulation Joseph Blumi DO Work Phone: [facility] Work Phone: 08-31-2005 pneumococcal polysaccharide vaccine, 23 valent Joseph Rolle DO Work Phone: [facility] Work Phone: Payers Date Payer Category Payer Self-pay [id number] 2017 Medicare HUMANA MEDICARE HUMANA MEDICARE PPO [id number] 2017-Present [phone] [address] [place] [address] PPO [id number] 2017 Medicare HUMANA MEDICARE HUMANA MEDICARE PPO [id number] 2017-Present [phone] [place] [address] PPO [id number] 2016 Medicare [id number] Private Health Insurance Unknown [id number] 2.16.840.1.123162.3.579. 2.462 Unknown [id number] 2.16840.1.200901.3.579. 2.462 Unknown [id number] 2.16840.1.642600.3.579. 2.462 Unknown [id number] 2.16.840.1.041379.3.579. 2.462 Unknown [id number] 2.16840.1.875228.3.579. 2.462 Unknown [id number] 2.16.840.1.142168.3.579. 2.462 Unknown [id number] 2.16.840.1.290803.3.579. 2.462 Unknown [id number] 2.16.840.1.966588.3.579. 2.462 Unknown [id number] 2.16.840.1.516502.3.579. 2.462 Unknown [id number] 2.16840.1.294388.3.579. 2.462 Unknown [id number] 2.840.1.982186.3.579. 2.462 Unknown [id number] 2.840.1.910608.3.579. 2.462 Unknown [id number] 2.840.1.589511.3.579. 2.462 Unknown [id number] 2.840.1.644897.3.579. 2.462 Unknown [id number] 2.840.1.286030.3.579. 2.462 Unknown [id number] 2.840.1.935794.3.579. 2.462 Unknown [id number] 2.840.1.381211.3.579. 2.462 Unknown [id number] 2.840.1.286162.3.579. 2.462 Unknown [id number] 2.840.1.121379.3.579. 2.462 Unknown [id number] 2.840.1.520671.3.579. 2.462 Unknown [id number] 2.840.1.186974.3.579. 2.462 Unknown [id number] .840.1.119428.3.579. 2.462 Unknown [id number] .840.1.001130.3.579. 2.462 Unknown [id number] .840.1.451517.3.579. 2.462 Unknown [id number] .840.1.985885.3.579. 2.462 Unknown [id number] 2.840.1.463243.3.579. 2.462 Unknown [id number] 2.840.1.999895.3.579. 2.462 Unknown [id number] 2.840.1.720043.3.579. 2.462 Unknown [id number] 2.16.840.1.587852.3.579. 2.462 Unknown [id number] 2.840.1.369321.3.579. 2.462 Unknown [id number] 2.16.840.1.163457.3.579. 2.462 Unknown [id number] 2.840.1.925379.3.579. 2.462 Unknown [id number] 2.840.1.469302.3.579. 2.462 Unknown [id number] 2.840.1.703693.3.579. 2.462 Unknown [id number] 2.840.1.555061.3.579. 2.462 Unknown [id number] 2.840.1.049711.3.579. 2.462 Unknown [id number] 2.840.1.096878.3.579. 2.462 Unknown [id number] 2.840.1.638092.3.579. 2.462 Unknown [id number] 2.840.1.696445.3.579. 2.462 Unknown [id number] 2.840.1.465200.3.579. 2.462 Unknown [id number] 2.840.1.792172.3.579. 2.462 Unknown [id number] 2.840.1.531768.3.579. 2.462 Unknown [id number] 2.840.1.673747.3.579. 2.462 Unknown [id number] .840.1.046529.3.579. 2.462 Unknown [id number] 2.840.1.057164.3.579. 2.462 Unknown [id number] 2.840.1.729307.3.579. 2.462 Social History Date Type Detail Facility Start: 12-06-2021 End: 08-13-2023 Tobacco smoking status [facility] Unknown if ever smoked [facility] Start: 12-02-2019 None [facility] Start: 12-02-2019 Spouse/ Signif icant Other [facility] Start: 07-06-2020 Non-smoker [facility] Start: 1945 Sex Assigned At Female [facility] Start: 02-03-2012 End: 03-22-2025 Tobacco smoking status NHIS Ex-smoker [facility] End: 01-30-2012 History of tobacco use Current smoker [facility] End: 01-30-2012 History of tobacco use Cigarette Smoker [facility] Start: 02-03-2012 End: 03-22-2012 Cigarettes smoked current (pack per day) - Reported 0.5 [facility] Start: 02-03-2012 End: 03-22-2012 Tobacco use and exposure Smokeless tobacco non-user [facility] Start: 05-07-2021 End: 05-07-2022 Alcohol intake Current non-drinker of alcohol (finding) [facility] Start: 1945 Sex Assigned At Not on file [facility] Start: 10-05-2021 End: 11-04-2021 Exposure to SARS-CoV-2 (event) Not sure [facility] NEGATED: Highlighted row [facility] Medical Equipment Procedure Code Equipment Code Equipment Origin al Text Equipment Identifier Dates 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 Start: 12-28-2023 Primary uncemented hemiarthroplasty of hip unitrax neck adjustment sleeve FDA Start: 12-28-2023 Primary uncemented hemiarthroplasty of hip ([id number]) ()[id number] FDA Start: 12-28-2023 Primary uncemented hemiarthroplasty of [...] Facility 03-25-2025 Functional status Ambulates;Gume r;Bathroom Privilege [facility] Work Phone: 02-17-2025 Functional status Chair [facility] Work Phone: 02-16-2025 Functional status Well [facility] Work Phone: 02-13-2025 Functional status Chair [facility] Work Phone: 02-06-2025 Functional status Chair [facility] Work Phone: 01-24-2025 Functional status Ambulates [facility] Work Phone: 01-23-2025 Functional status Fair [facility] Work Phone: 12-30-2023 Functional status Bedrest [facility] Work Phone: 08-17-2023 Functional status Ambulates [facility] Work Phone: Mental Status Date Assessment Result Facility 03-25-2025 Cognitive function Voice/Name [facility] Work Phone: 02-17-2025 Cognitive function Voice/Name [facility] Work Phone: 02-13-2025 Cognitive function Voice/Name [facility] Work Phone: 02-06-2025 Cognitive function Voice/Name [facility] Work Phone: 01-24-2025 Cognitive function Voice/Name [facility] Work Phone: 12-30-2023 Cognitive function Voice/Name [facility] Work Phone: 08-17-2023 Cognitive function Voice/Name [facility] Work Phone: 08-13-2023 Cognitive function Level Of Cons ciousness Awake;Alert;Appropriate;Follow s Commands [facility] Work Phone: 01-28-2023 Cognitive function Level Of Cons ciousness Awake;Alert;Appropriate;Follow s Commands [facility] Work Phone: Clinical Notes 03-14-2021 to 03-25-2025 Note Date & Type Note Facility 03-25-2025 Discharge summary Note Date/Time March 25, 2025 2:37pm [facility] Medical Records Department [address] [place] [address] Discharge Summary 03/25/25 1133 MR#: [id number] Acct: [id number] Name: OLGA DONALDSON Rep #:[id number] : 1945 80 From: Melba Hartmann MD PCP: Dr. Ramone Smiley MD Status:ADM IN Location: [facility] [id number] Providers Date of Admission: 03/21/25 Date of [...] with her primary care doctor and her risk control director for medications to be adjusted as needed. [...] 03/22/25 12:41 RMA (Rec: 03/22/25 12:41 RMA [id number]) Nutrition Malnutrition Evidence of Yes Malnutrition Exists [...] Neut % (Auto) 61.3, Lymph % (Auto) 26.3,Cotton % (Auto) 10.4 H, Eos % (Auto) [...] Health Service Charges/Coding Visit Charges Inpatient E&M: 16089 Disch Hosp >30min 03/25/25 1437 <Electronically signed by Melba Hartmann MD> Cosigner Signature (if applicable): CC: Dr. Ramone Smiley MD; Dr. Melba Hartmann MD~ Signed [facility] Work Phone: 1(964) 834-753507-26-2025 Hospital Discharge instructionsAdditional Instructions cardizem stopped. Metoprolol cut down to 12.5mg bid. Lasix reduced to 20mg daily due to to hypotension [facility]: [facility]: 1(906) 128-757407-26-2025 Discharge summary [facility] Note Date/Time March 25, 2025 11:3 3am [facility] Medical Records Department [address] [place] [address] Instructions for Home/Discharge Instructions 03/25/25 1126 MR#: [id number] Acct: [id number] Name: OLGA DONALDSON Rep #:[id number] : 1945 80 From: Melba Hartmann MD [...] MD; Dr. Ramone Smiley MD ~ Signed [facility] Work Phone: 1([phone]) 743-171307-26-2025 [facility]07-25-2025 Progress note Author Melba Hartmann [facility] Note Date/Time March 24, 2025 4:46 pm [facility] Medical Records Department [address] [place] [address] Progress Note 03/24/25 1200 MR#: [id number] Acct: [id number] Name: OLGA DONALDSON Rep #:[id number] : 1945 80 From: Melba Hartmann MD PCP: Dr. Ramone Smiley MD Status:ADM IN Location: ID3 [id number] Subjective Subjective Patient seen and examined. She [...] 03/22/25 12:41 RMA (Rec: 03/22/25 12:41 RMA [id number]) Nutrition Malnutrition Evidence of Yes Malnutrition Exists [...] Neut % (Auto) 68.8, Lymph % (Auto) 21.3,Cotton % (Auto) 8.5, Eos % (Auto) 0.8, [...] prophylaxis: heparin. Charges/Coding Visit Charges Inpatient E&M: 56882 Subs Hosp L2 03/24/25 1646 <Electronically signed by Melba Hartmann MD> Melba Hartmann MD Cosigner Signature (if applicable): CC: ~ Signed [facility] Work Phone: 1(739) 352-877107-25-2025 Discharge summary Author Ethan Suarez [facility] Note Date/Time March 23, 2025 10:[facility] [address] [place] [address] Emergency Department Summary 03/21/25 MR#: [id number] Acct: [id number] Name: OLGA DONALDSON Rep #:[id number] : 1945 80 From: Ethan Casanova PCP: Dr. Ramone Smiley MD Status:ADM [facility] <Dr. Ethan Suarez DO - Last [...] to prolonged laying down at skilled facility. [facility] <Dr. 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 It may contain incorrectwords, spelling, [...] % (Auto) 62.3 Lymph % (Auto) 27.1 Cotton % (Auto) 8.6 Eos % (Auto) 0.8 [...] Sl. Cloudy Urine pH 7.0 Ur Specific [place] 1.010 Urine Protein 30 H Urine Glucose [...] in the abdominal CT report. Reading Location: [facility] Abdomen/Pelvis CT 03/21/25 18:02 IMPRESSION: 1. Similar patchy airspace consolidation in the bilateral lung bases, suggestingaspiration. 2. Moderate colonic stool burden with persistent mild distention and wall thickening of the rectal vault, suggesting chronic constipation and stercoral proctitis, although less pronounced from prior exam. 3. Multiple additional non-acute ancillary findings, as described above. Reading Location: [facility] <Dr. Noé Currie, DO - [...] clinician: N/A This note was generated with 21GRAMS dictation software. It may contain incorrectwords, spelling, [...] diffuse weakness and admitted ambulations admitted to [facility] under hospitalist. Discussed with Dr. Foster. Lab [...] % (Auto) 62.3 Lymph % (Auto) 27.1 Cotton % (Auto) 8.6 Eos % (Auto) 0.8 [...] Sl. Cloudy Urine pH 7.0 Ur Specific [place] 1.010 Urine Protein 30 H Urine Glucose [...] in the abdominal CT report. Reading Location: [facility] Abdomen/Pelvis CT 03/21/25 18:02 IMPRESSION: 1. Similar patchy airspace consolidation in the bilateral lung bases, suggestingaspiration. 2. Moderate colonic stool burden with persistent mild distention and wall thickening of the rectal vault, suggesting chronic constipation and stercoral proctitis, although less pronounced from prior exam. 3. Multiple additional non-acute ancillary findings, as described above. Reading Location: [facility] Discharge Plan Dx/Rx/DC Orders Clinical Impression: Back muscle spasm, Acute UTI Disposition Disposition: Acute Care Hospital [facility] Discharge Date/Time: 03/22/25 00:22 What to do if you have Problems For any increased pain, shortness of breath, bleeding, nausea or vomiting, chestpain, or any unexpected problems, contact your Primary Care Provider. Call [facility] ([phone]) or report to the closest Emergency Room. Call 911 if necessary. 03/23/252211 <Electronically signed by Ethan Casanova> Cosigner Signature (if applicable): 03/21/25 2301 <Electronically signed by Noé Currie DO> CC: Dr. Ramone Smiley MD ~ Signed [facility] Work Phone: 1(734) 657-110307-24-2025 Progress note Author Melba [facility] Note Date/Time March 23, 2025 1:37 pm [facility] Medical Records Department [address] [place] [address] Progress Note 03/23/25 1328 MR#: [id number] Acct: [id number] Name: OLGA DONALDSON Rep #:[id number] : 1945 80 From: Melba Hartmann MD PCP: Dr. Ramone Smiley MD Status:ADM IN Location: MS3 [id number] Subjective Subjective Patient seen and examined with [...] 03/22/25 12:41 RMA (Rec: 03/22/25 12:41 RMA [id number]) Nutrition Malnutrition Evidence of Yes Malnutrition Exists [...] 76.1 H, Lymph % (Auto) 16.5 L, Cotton % (Auto) 6.8, Eos % (Auto) 0.0, [...] prophylaxis: heparin. Charges/Coding Visit Charges Inpatient E&M: 03771 Subs Hosp L2 03/23/25 1337 <Electronically signed by Melba Hartmann MD> Melba Hartmann MD Cosigner Signature (if applicable): CC: ~ Signed [facility] Work Phone: 1(628) 449-518807-23-2025 Progress note Author Melba [facility] Note Date/Time March 22, 2025 2:48 pm [facility] Medical Records Department [address] [place] [address] Progress Note 03/22/25 1428 MR#: [id number] Acct: [id number] Name: OLGA DONALDSON Rep #:[id number] : 1945 80 From: Melba Hartmann MD PCP: Dr. Ramone Smiley MD Status:ADM IN Location: MS3 EB685-2 Subjective Subjective Patient seen and examined with [...] 03/22/25 12:41 RMA (Rec: 03/22/25 12:41 RMA [id number]) Nutrition Malnutrition Evidence of Yes Malnutrition Exists [...] Sl. Cloudy, Urine pH 7.0, Ur Specific [place] 1.010, Urine Protein 30 H, Urine Glucose [...] Neut % (Auto) 62.3, Lymph % (Auto) 27.1,Cotton % (Auto) 8.6, Eos % (Auto) 0.8, [...] % (Auto) 65.3, Lymph % (Auto) 24.0, Cotton % (Auto) 8.0, Eos % (Auto) 0.9, [...] in the abdominal CT report. Reading Location: [facility] Abdomen/Pelvis CT 03/21/25 18:02 IMPRESSION: 1. Similar patchy airspace consolidation in the bilateral lung bases, suggestingaspiration. 2. Moderate colonic stool burden with persistent mild distention and wall thickening of the rectal vault, suggesting chronic constipation and stercoral proctitis, although less pronounced from prior exam. 3. Multiple additional non-acute ancillary findings, as described above. Reading Location: [facility] Physical Exam Const alert, oriented [...] prophylaxis: heparin. Charges/Coding Visit Charges Inpatient E&M: 99383 Subs Hosp L2 03/22/25 8598 <Electronically signed by Melba Hartmann MD> Melba Hartmann MD Cosigner Signature (if applicable): CC: ~ Signed [facility] Work Phone: 1(201) 135-122707-23-2025 History and physical note Author Abigail Foster [facility] Note Date/Time March 22, 2025 12:4 1am [facility] Medical Records Department [address] [place] [address] H&P Exam - Hospitalist 03/21/25 0156 MR#: [id number] Acct: [id number] Name: OLGA DONALDSON Rep #:[id number] : 1945 80 From: Abigail Foster MD PCP: Dr. Ramone Smiley MD Status:ADM IN Location: [facility] KA808-6 [facility] - General General Date of Admission: [...] considered in remission who presents to the [facility] ED on 03/21/2025 with history of right-sided [...] 1, morphine 2 mg IV x 1, [id number] mg p.o. x 1. [facility] Medical History Former smoker On home oxygen [...] Sl. Cloudy, Urine pH 7.0, Ur Specific [place] 1.010, Urine Protein 30 H, Urine Glucose [...] Neut % (Auto) 62.3, Lymph % (Auto) 27.1,Cotton % (Auto) 8.6, Eos % (Auto) 0.8, [...] in the abdominal CT report. Reading Location: [facility] Abdomen/Pelvis CT 03/21/25 18:02 IMPRESSION: 1. Similar patchy airspace consolidation in the bilateral lung bases, suggestingaspiration. 2. Moderate colonic stool burden with persistent mild distention and wall thickening of the rectal vault, suggesting chronic constipation and stercoral proctitis, although less pronounced from prior exam. 3. Multiple additional non-acute ancillary findings, as described above. Reading Location: [facility] Assessment & Plan Assessment/Plan (1) [...] considered in remission who presents to the [facility] ED on 03/21/2025 with history of right-sided [...] Time: 16minutes. Charges/Coding Visit Charges Inpatient E&M: 96134 Init Hosp L3 Procedures Hospitalists Procedures: 03877 Advncd Care Plan 30 Min 03/22/25 0041 <Electronically signed by Abigail Foster MD> Cosigner Signature (if applicable): CC: Dr. Abigail Foster MD; Dr. Ramone Smiley MD~ Signed [facility] Work Phone: 1([phone]) 878-340207-22-2025 Radiology Diagnostic study [facility]07-22-2025 Radiology Diagnostic study [facility]07-05-2025 Radiology Diagnostic study [facility] 03-04-2025 Discharge summary Author Jeevan [facility] Note Date/Time March 04, 2025 11:14 pm [facility] Medical Records Department [address] [place] [address] Emergency Department Summary 03/04/25 MR#: [id number] Acct: [id number] Name: OLGA DONALDSON Rep #:[id number] : 1945 80 From: Jeevan Yoder DO PCP: Dr. Ramone Smiley MD Status:[facility] ER Location: ED HPI History of Present [...] Patient denies any history of kidney stones. [facility] Medical History History of diabetes [...] following commands knew that she was at [facility] year is 2024 Skin: Warm, dry, intact [...] % (Auto) 66.1 Lymph % (Auto) 24.2 Cotton % (Auto) 6.9 Eos % (Auto) 1.7 [...] Clarity Cloudy Urine pH 7.0 Ur Specific [place] 1.010 Urine Protein 100 H Urine Glucose [...] aspiration pneumonia. 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 Reading Location: [place] [address] Discharge Plan Triage Chief Complaint: Serna C/O [...] other concerns or worsening symptoms Print Language: Surinamese Disposition Disposition: Home, Self Care What to do if you have Problems For any increased pain, shortness of breath, bleeding, nausea or vomiting, chestpain, or any unexpected problems, contact your Primary Care Provider. Call [facility] ([phone]) or report to the closest Emergency Room. Call 911 if necessary. 03/04/25 2314 <Electronically signed by Jeevan Yoder DO> Cosigner Signature (if applicable): CC: Dr. Ramone Smiley MD ~ Signed [facility] Work Phone: 1(886) 399-382207-02-2025 Hospital Discharge instructionsAdditional Instructions Urine with signs of infection. You had infection a few weeks ago you self cath. Take finish antibiotic prescribed. Continue your Tylenol every 6 hours. Use Valium as needed. 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 She has been taking prednisone since discharge. She presents today with increasing shortness of breath and occasional cough. No fevers or chills. [facility] Medical History History of diabetes [...] 78.7 H Lymph % (Auto) 12.5 L Cotton % (Auto) 6.7 Eos % (Auto) 1.0 [...] wear your nasal cannula oxygen. Print Language: Surinamese Disposition Disposition: Home, Self Care What to do if you have Problems For any increased pain, shortness of breath, bleeding, nausea or vomiting, chestpain, or any unexpected problems, contact your Primary Care Provider. Call [facility] ([phone]) or report to the closest Emergency Room. Call 911 if necessary. 02/19/25 0005 <Electronically signed by Billy Kothari MD> Cosigner Signature (if applicable): CC: Dr. Ramone Smiley MD ~ Signed [facility] Work Phone: 1(614) 135-927106-20-2025 Discharge summary Author Heydi Amaya [facility] Note Date/Time February 17, 2025 5:15 pm [facility] Medical Records Department [address] [place] [address] Discharge Summary 02/17/25 1713 MR#: [id number] Acct: [id number] Name: OLGA DONALDSON Rep #:[id number] : 1945 80 From: Heydi Amaya MD PCP: Dr. Ramone Smiley MD Status:ADM [facility]ESS [facility] Prov[facility] Date of Admission: 02/15/25 Date of [...] netarsudil 0.02 %-latanoprost 0.005 % eye drops ([facility]) 1 drp EACH EYE DAILYeye drops 01/15/25 [...] GERD, COPD, hypertension, diabetes who presented to [facility] ED 02/16/2025 with shortness of [...] (Auto) 86.1 H, Lymph % (Auto) 7.8L, Cotton % (Auto) 5.0, Eos % (Auto) 0.1, [...] in before D/C Order can be placed): [facility] Charges/Coding Visit Charges Inpatient E&M: 85372 Disch Hosp 02/17/25 2591 <Electronically signed by Heydi Amaya MD> Cosigner Signature (if applicable): CC: Dr. Ramone Smiley MD; Dr. Heydi Amaya MD~ Signed [facility] Work Phone: 1(176) 588-318606-20-2025 Discharge summary Author Heydi Amaya [facility] Note Date/Time February 17, 2025 5:13 pm [facility] Medical Records Department [address] [place] [address] Transfer to [facility] MR#: [id number] Acct: [id number] Name: OLGA DONALDSON Rep #:[id number] : 1945 80 From: Heydi Amaya MD PCP: Dr. Ramone Smiley MD Status:ADM JESS Certification of patient admission REQUIRED AT TIME OF ADMISSION. I CERTIFY THAT POST-HOSPITAL ECF SERVICES ARE REQUIRED TO BE GIVEN ON AN IN-PATIENT BASIS BECAUSE OF THE ABOVE NAMED PATIENT'S NEED FOR SKILLED NURSING CARE ON A CONTINUING BASIS FOR THE CONDITION(S) FOR WHICH HE/SHE WAS RECEIVING IN-PATIENT HOSPITAL SERVICES PRIOR TO HIS/HER TRANSFER TO [facility]. 02/17/25 9283<Electronically signed by Heydi Amaya MD> Diet Diet [...] GERD, COPD, hypertension, diabetes who presented to [facility] ED 02/16/2025 with shortness of [...] in before D/C Order can be placed): [facility] Facility 02/17/25 1713 <Electronically signed by Heydi Amaya MD> Cosigner Signature (if applicable): CC: Dr. Nestor Bartlett DO; Dr. Ramone Smliey MD ~ [facility] Work Phone: 1(200) 103-300106-20-2025 [facility]06-19-2025 Progress note Author Heydi Amaya [facility] Note Date/Time February 16, 2025 4:45 pm [facility] Medical Records Department [address] [place] [address] Progress Note - Hospitalist 02/16/2529 MR#: [id number] Acct: [id number] Name: OLGA DONALDSON Rep #:[id number] : 1945 80 From: Heydi Amaya MD PCP: Dr. Ramone Smiley MD Status:ADM JESS Location: [place] [address] Reason for Visit Reason for Visit: Diagnoses [...] 82.5 H, Lymph % (Auto) 10.9 L, Cotton % (Auto) 4.8, Eos % (Auto) 0.7, [...] evidence of acute cardiopulmonary process. Reading Location: [facility] Physical Exam Narrative General: Alert, oriented, [...] GERD, COPD, hypertension, diabetes who presented to [facility] ED 02/16/2025 with shortness of [...] Amaya MD Charges/Coding Visit Charges Inpatient E&M: 25866 Subs Hosp L2 02/16/25 0524 <Electronically signed by Heydi Amaya MD> Cosigner Signature (if applicable): CC: ~ Signed [facility] Work Phone: [phone]) 708-807806-18-2025 Discharge summary Author Robert Allison [facility] Note Date/Time February 15, 2025 3:14 pm [facility] Medical Records Department [address] [place] [address] Emergency Department Summary 02/15/25 MR#: [id number] Acct: [id number] Name: OLGA DONALDSON Rep #:[id number] : 1945 80 From: Robert Allison DO PCP: Dr. Ramone Smiley MD Status:ADM JESS Location: [place] [address] HPI History of Present Illness Chief Complaint: [...] a cough. Denies fever or chest pain. [facility] Medical History (Updated 02/15/25 @ 13:[address] Robert lAlison DO) History of diabetes mellitus COPD exacerbation [...] and faint expiratory wheezes. Mild tachypnea. No teaching young muscles or retractions Effort and Inspection: Negative [...] chronically has this type of elevation. 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 pull worker saw patient and asked that we [...] 82.5 H Lymph % (Auto) 10.9 L Cotton % (Auto) 4.8 Eos % (Auto) 0.7 [...] evidence of acute cardiopulmonary process. Reading [facility] 1 view chest x-ray obtained interpreted myself [...] Care Provider] - 3-5 Days Print Language: Surinamese Disposition Disposition: Acute Care Hospital [facility] What to do if you have Problems For any increased pain, shortness of breath, bleeding, nausea or vomiting, chestpain, or any unexpected problems, contact your Primary Care Provider. Call [facility] ([phone]) or report to the closest Emergency Room. Call 911 if necessary. 02/15/25 9827 <Electronically signed by Robert Allison DO> Cosigner Signature (if applicable): CC: Dr. Ramone Smiley MD ~ Signed [facility] Work Phone: [phone]) 857-289706-18-2025 History and physical note Author Nestor Bartlett [facility] Note Date/Time February 15, 2025 2:57 pm [facility] Medical Records Department [address] [place] [address] H&P Exam - Hospitalist 02/15/25 1401 MR#: [id number] Acct: [id number] Name: OLGA DONALDSON Rep #:[id number] : 1945 80 From: Nestor roman DO PCP: Dr. Ramone Smiley MD Status:ADM JESS Location: [place] [address] HPI - General General Date of Admission: 02/15/25 Date of Service: 02/15/25 Chief Complaint: Shortness of breath, acute on chronic debility HPI Narrative OLGA DONALDSON, is a 80 F who presented to [facility] ED on 02/15/2025 with shortness [...] currently. Will be admitted for further management. [facility] Medical History (Updated 02/15/25 @ [...] 01/15/25 01/15/25 [facility].005 [facility] psyllium husk 0.4 gram capsule 0.4 [...] 82.5 H, Lymph % (Auto) 10.9 L, Cotton % (Auto) 4.8, Eos % (Auto) 0.7, [...] evidence of acute cardiopulmonary process. Reading Location[facility] Assessment & Plan Assessment/Plan (1) Generalized weakness: PLAN: Plan Patient is an 80-year-old female who presented [facility] ED on 02/15/2025 with recurrent shortness of breath and acute on chronic debility. 1. Acute on chronic debility ? Admit under observation status to [facility]. PT/OT/case management consulted. Multiple recent hospitalizations for [...] 75 minutes. Charges/Coding Visit Charges Inpatient E&M: 14357 Init Hosp L3 02/15/25 1457 <Electronically signed by Nestor Bartlett DO> Cosigner Signature (if applicable): CC: Dr. Nestor Bartlett DO; Dr. Ramone Smiley MD~ Signed [facility] Work Phone: [phone]) [phone] Radiology Diagnostic study [facility]06-16-2025 Discharge summary Author Lucio Borden [facility] Note Date/Time February 13, 2025 2:22 pm [facility] Medical Records Department [address] [place] [address] Instructions for Home/Discharge Instructions 02/13/25 1415 MR#: [id number] Acct: [id number] Name: OLGA DONALDSON Rep #:[id number] : 1945 80 From: Lucio Borden DO [...] CC: Dr. Ramone Smiley MD ~ Signed [facility] Work Phone: [phone]) [phone] [facility]06-15-2025 Progress note Author [facility] Note Date/Time February 12, 2025 11:2 5am [facility] Medical Records Department [address] [place] [address] Progress Note - Hospitalist 02/12/25 1123 MR#: [id number] Acct: [id number] Name: OLGA DONALDSON Rep #:[id number] : 1945 80 From: Lucio Borden DO PCP: Dr. Ramnoe Smiley MD Status:ADM IN [facility] Reason for Visit Reason for Visit: Diagnoses [...] 35- minutes Charges/Coding Visit Charges Inpatient E&M: 05770 Subs Hosp L2 02/12/25 1125 <Electronically signed by Lucio Borden DO> Cosigner Signature (if applicable): CC: ~ Signed [facility] Work Phone: [phone]) 349-566406-14-2025 Progress [facility] Note Date/Time February 11, 2025 4:29 pm [facility] Medical Records Department [address] [place] [address] Progress Note - Hospitalist 02/11/25 1621 MR#: [id number] Acct: [id number] Name: OLGA DONALDSON Rep #:[id number] : 1945 80 From: Lucio Borden DO PCP: Dr. Ramone Smiley MD Status:ADM IN [facility] Reason for Visit Reason for Visit: Diagnoses [...] 35- minutes Charges/Coding Visit Charges Inpatient E&M: 91176 Subs Hosp L2 02/11/25 1622 <Electronically signed by Lucio Borden DO> Cosigner Signature (if applicable): CC: ~ Signed [facility] Work Phone: [phone]) [phone] Progress note [facility] Note Date/Time February 10, 2025 5:29 pm [facility] Medical Records Department [address] [place] [address] Progress Note - Hospitalist 02/10/25 1720 MR#: [id number] Acct: [id number] Name: OLGA DONALDSON Rep #:[id number] : 1945 80 From: Lucio Borden DO PCP: Dr. Ramone Smiley MD Status:ADM IN [facility] Reason for Visit Reason for Visit: Diagnoses [...] 35- minutes Charges/Coding Visit Charges Inpatient E&M: 41288 Subs Hosp L2 02/10/25 1729 <Electronically signed by Lucio Borden DO> Cosigner Signature (if applicable): CC: ~ Signed [facility] Work Phone: [phone]) 796-990606-12-2025 History and physical note Author Tono Gomez [facility] Note Date/Time February 09, 2025 7:17 pm [facility] Medical Records Department [address] [place] [address] H&P Exam - Hospitalist 02/09/25 1525 MR#: [id number] Acct: [id number] Name: OLGA DONALDSON Rep #:[id number] : 1945 80 From: Tono BHATTI PCP: Dr. Ramone Smiley MD Status:ADM IN Location: [facility] KB481-2 HPI - General General Date of Service: [...] tightness, no dizziness or lightheadedness, no palpitations. [facility] Medical History COPD with exacerbation [...] (Auto) 86.9 H, Lymph % (Auto) 7.3L, Cotton % (Auto) 4.5, Eos % (Auto) 0.1, [...] bibasilar linear atelectasis. Reading Location: [facility] Assessment & Plan Assessment/Plan (1) COPD [...] assessment and findings. Visit Charges Inpatient E&M: 22789 Init Hosp L2 02/09/251916<Electronically signed by Lucio Borden DO> Cosigner Signature (if applicable): cc: DAVY Dykes; Dr. Ramone Smiley MD; Dr. Lucio Borden DO ~* Signed [facility] Work Phone: [phone]) 883-223006-12-2025 Discharge summary Author Jeremiah Corrales [facility] Note Date/Time February 09, 2025 2:57 pm [facility] Medical Records Department [address] [place] [address] Emergency Department Summary 02/09/25 MR#: [id number] Acct: [id number] Name: OLGA DONALDSON Rep #:[id number] : 1945 80 From: Jeremiah Corrales MD [...] Prior similar symptoms: Yes Recent Illness/Hospitalization: Yes [facility] Medical History COPD with exacerbation [...] 86.9 H Lymph % (Auto) 7.3 L Cotton % (Auto) 4.5 Eos % (Auto) 0.1 [...] rhythm rate of 93 no acute signs MA or ischemia. Patient does have inverted T waves in V4 5 and 6 slight change from prior EKG from February 04. Prior EKG tracings: available for review Prior: Changed Discharge Plan Dx/Rx/DC Orders Clinical Impression: Acute dyspnea, Elevated troponin, Hypoxia, COPD exacerbation, History of diabetes mellitus Disposition Disposition: Acute Care Hospital [facility] What to do if you have Problems For any increased pain, shortness of breath, bleeding, nausea or vomiting, chestpain, or any unexpected problems, contact your Primary Care Provider. Call [facility] ([phone]) or report to the closest Emergency Room. Call 911 if necessary. 02/09/25 1457 <Electronically signed by Jeremiah Corrales MD> Cosigner Signature (if applicable): CC: Dr. Ramone Smiley MD ~ Signed [facility] Work Phone: 1([phone]) 236-140306-12-2025 Radiology Diagnostic study [facility]06-09-2025 Discharge summary Author Lucio Borden [facility] Note Date/Time February 06, 2025 2:01p [facility] Medical Records Department [address] [place] [address] Instructions for Home/Discharge Instructions 02/06/25 1351 MR#: [id number] Acct: [id number] Name: OLGA DONALDSON Rep #:[id number] : 1945 80 From: Lucio Borden DO [...] CC: Dr. Ramone Smiley MD ~ Signed [facility] Work Phone: 1(250) 333-603606-09-2025 [facility]06-08-2025 Progress note Author [facility] Note Date/Time February 05, 2025 2:48p m [facility] Medical Records Department [address] [place] [address] Progress Note - Hospitalist 02/05/25 1442 MR#: [id number] Acct: [id number] Name: OLGA DONALDSON Rep #:[id number] : 1945 80 From: Lucio Borden DO PCP: Dr. Ramone Smiley MD Status:ADM IN Location: [facility] NSM207- 1 Subjective Subjective Patient was seen and [...] not believe the patient has had an MA #4 type 2 diabetes-blood sugars will be [...] 35 minutes Charges/Coding Visit Charges Inpatient E&M: 15660 Subs Hosp L2 02/05/25 1448 <Electronically signed by Lucio Borden DO> Cosigner Signature (if applicable): CC: ~ Signed [facility] Work Phone: 1([phone]) 512-349006-07-2025 Discharge summary Author Aj Holley [facility] Note Date/Time February 04, 2025 10:27 am [facility] Medical Records Department [address] [place] [address] Emergency Department Summary 02/04/25 MR#: [id number] Acct: [id number] Name: OLGA DONALDSON Rep #:[id number] : 1945 80 From: Aj Holley MD [...] of the couch, and has no pain. [facility] Medical History Elevated troponin Coronary [...] (Reviewed 01/31/25 @ 16:15 by Whitney Cao FLATTENING MACHINE OPERATOR, FLATTENING MACHINE OPERATOR-C) Daughter Breast cancer Father Hypertension Sister Cancer [...] 75.4 H Lymph % (Auto) 15.7 L Cotton % (Auto) 6.6 Eos % (Auto) 1.7 [...] MD [Primary Care Provider] - Print Language: Surinamese What to do if you have Problems For any increased pain, shortness of breath, bleeding, nausea or vomiting, chestpain, or any unexpected problems, contact your Primary Care Provider. Call [facility] ([phone]) or report to the closest Emergency Room. [...] 11.8 and 37.9. White count slightly elevated [place] 0.2 thousand. There is slight shift with [...] cc: Dr. Ramone Smiley MD ~* Signed [facility] Work Phone: [phone]) 283-264906-07-2025 Radiology Diagnostic study [facility]06-07-2025 Radiology Diagnostic study [facility]05-29-2025 Radiology Diagnostic study [facility] 01-24-2025 [facility]05-26-2025 Progress note Author Becca Silverman [facility] Note Date/Time January 23, 2025 3:40p m [facility] Medical Records Department [address] [place] [address] Progress Note - Cardiology 01/23/25 1528 MR#: [id number] Acct: [id number] Name: OLGA DONALDSON Rep #:[id number] : 1945 80 From: Becca Silverman MD PCP: Dr. Ramone Smiley MD Status:ADM IN Location: [place] [address] Subjective Subjective Seen and evaluated at bedside [...] (Auto) 90.8 H, Lymph % (Auto) 6.2L, Cotton % (Auto) 2.7, Eos % (Auto) 0.0, [...] (Auto)90.8 H, Lymph % (Auto) 6.2 L, Cotton % (Auto) 2.7, Eos % (Auto) 0.0, [...] up an appointment to be seen by risk control director as an outpatient and discussed further plan possible Lexiscan sestamibi and based on results of Lexiscan sestamibi to consider further evaluation. To minimize risk of contrast-induced nephropathy. Becca Silverman MD,[facility] 01/23/25 1540 <Electronically signed by Becca Silverman MD> Cosigner Signature (if applicable): CC: ~ Signed [facility] Work Phone: [phone]) 706-670105-26-2025 Progress note Author Melba [facility] Note Date/Time January 23, 2025 2:43p m [facility] Medical Records Department [address] [place] [address] Progress Note 01/23/25 1037 MR#: [id number] Acct: [id number] Name: OLGA DONALDSON Rep #:[id number] : 1945 80 From: Melba Hartmann MD PCP: Dr. Ramone Smiley MD Status:ADM IN Location: [place] [address] Subjective Subjective Patient seen and examined. She [...] (Auto) 90.8 H, Lymph % (Auto) 6.2L, Cotton % (Auto) 2.7, Eos % (Auto) 0.0, [...] These were held * on ISS. Accuchecks [facility]. * on gabapentin * #History of left sided breast cancer: s/p lumpectomy in 2003. #History of multinodular goiter. stable #Glaucoma: on netarsudil-latanoprost eye drops. #History of neurogenic bladder: stable #GERD: On PPI #DVT prophylaxis: Heparin Charges/Coding Visit Charges Inpatient E&M: 13488 Subs Hosp L2 01/23/25 6113 <Electronically signed by Melba Hartmann MD> Melba Hartmann MD Cosigner Signature (if applicable): CC: ~ Signed [facility] Work Phone: 1([phone]) 569-255605-25-2025 Progress note Author [facility]ba [facility] Note Date/Time January 22, 2025 2:00p m [facility] Medical Records Department [address] [place] [address] Progress Note 05/25/25 0949 MR#: [id number] Acct: [id number] Name: OLGA DONALDSON Rep #:[id number] : 1945 80 From: Melba Hartmann MD PCP: Dr. Ramone Smiley MD Status:ADM IN Location: [place] [address] Subjective Subjective Patient seen and examined this [...] 91.4 H, Lymph % (Auto) 5.7 L, Cotton % (Auto) 2.4, Eos % (Auto) 0.0, [...] to PCU Charges/Coding Visit Charges Inpatient E&M: 06637 Subs Hosp L2 01/22/25 1242 <Electronically signed by Melba Hartmann MD> Melba Hartmann MD Cosigner Signature (if applicable): CC: ~ Signed ADDENDUM by Dr. Melba Hartmann MD on 01/22/25 at 1400 Addendum 1:30pm Patient's son Ursula Lees Jr called on the phone ([phone]) and updated about his mother's condition. 01/22/25 1400 <Electronically signed by Melba vivas MD> Date _ Melba Hartmann MD Cosigner Signature (if applicable): Date cc: ~* Signed [facility] Work Phone: 1([phone]) 407-534205-24-2025 Progress note Author Melba Hartmann [facility] Note Date/Time January 21, 2025 2:07p [facility] Medical Records Department [address] [place] [address] Progress Note 01/21/25 1039 MR#: [id number] Acct: [id number] Name: OLGA DONALDSON Rep #:[id number] : 1945 80 From: Melba Hartmann MD [...] 88.4 H, Lymph % (Auto) 7.7 L, Cotton % (Auto) 3.5, Eos % (Auto) 0.0, [...] H, Calcium 9.8, [place] [address] H 01/21/25 08:06: POC Glucose 202 H [...] noted. Cardiomegaly. No pericardial effusion. Reading Location: [id number] Echocardiogram 01/20/25 04:12 Interpretation Summary Mildly dilated left ventricle. The estimated ejection fraction is 35-40 %. There is evidence of diastolic dysfunction. There is moderate global hypokinesis of the left ventricle. Trivial mitral valve insufficiency. Mild aortic stenosis. Trivial aortic valve insufficiency. Ordering Physician: Sandeep Carlton Referring Physician: Ramone Smiley Performed By: Margot Cleary, RDCS, RVT Chest X-Ray 01/21/25 05:55 IMPRESSION: New appearing hluy-vx-rtytzcpj ill-defined perihilar opacity at the left upper lobe may represent developing infiltrate or less likely an asymmetric edema pattern. Bilateral medial retrocardiac lower lobe streaky opacities not significantly changed. No pleural effusions identified. Reading Location: [facility] Physical Exam Const alert, oriented x3, [...] prophylaxis: Heparin Charges/Coding Visit Charges Inpatient E&M: 91851 Subs Hosp L2 01/21/25 6558 <Electronically signed by Melba Hartmann MD> Melba Bachignrichar Signature (if applicable): CC: ~ Signed [facility] Work Phone: 1(506) 547-815505-24-2025 Radiology Diagnostic study [facility]05-23-2025 Progress note Author Lucio Borden [facility] Note Date/Time January 20, 2025 4:58p m [facility] Medical Records Department [address] [place] [address] Progress Note - Hospitalist 01/20/25 1657 MR#: [id number] Acct: [id number] Name: OLGA DONALDSON Rep #:[id number] : 1945 80 From: Lucio Borden DO PCP: Dr. Ramone Smiley MD Status:ADM IN Location: [place] [address] Hospitalist Note Patient continues to have respiratory [...] Cosigner Signature (if applicable): CC: ~ Signed [facility] Work Phone: 1([phone]) 822-432305-23-2025 Progress note Author [facility] Note Date/Time January 20, 2025 11:20 am [facility] Medical Records Department [address] [place] [address] Progress Note - Hospitalist 01/20/25 1119 MR#: [id number] Acct: [id number] Name: OLGA DONALDSON Rep #:[id number] : 1945 80 From: Lucio Borden DO PCP: Dr. Ramone Smiley MD Status:ADM IN Location: [place] [address] Hospitalist Note Patient was seen and examined today, made the decision to change the patient to Airvo, patient was admitted for suspected right lower lobe pneumonia and exacerbation of COPD, she remained on aerosol treatments, IV Solu-Medrol, and IVlevofloxacin. 01/20/25 1120 <Electronically signed by Lucio Borden DO> Cosigner Signature (if applicable): CC: ~ Signed [facility] Work Phone: 1([phone]) 270-453005-23-2025 History and physical note Author Sandeep Marie [facility] Note Date/Time January 20, 2025 6:06a m [facility] Medical Records Department [address] [place] [address] H&P Exam - Hospitalist 01/20/25 0241 MR#: [id number] Acct: [id number] Name: OLGA DONALDSON Rep #:[id number] : 1945 80 From: Sandeep Dukes DO PCP: Dr. Ramone Smiley MD Status:ADM IN Location: [place] [address] HPI - General General Date of Admission: [...] stenosis of lumbar region who presents to [facility] ER complaining of shortness of [...] is expected to extend beyond 2 midnights. [facility] Medical History Fracture of hip, [...] Neut % (Auto) 58.4, Lymph % (Auto) 32.0,Cotton % (Auto) 7.7, Eos % (Auto) 0.8, [...] Clarity Clear, Urine pH 6.0, Ur Specific [place] 1.010, Urine Protein 100 H, Urine Glucose [...] noted. Cardiomegaly. No pericardial effusion. Reading Location: [id number] Assessment & Plan Assessment/Plan (1) Pneumonia: QUALIFIERS: [...] twice daily. Give acetaminophen as needed for toaf-jz-vwvrirqo (level 1-5/10) pain or fever. Give morphine [...] responsive hypotension Charges/Coding Visit Charges Inpatient E&M: 46277 Init Hosp L3 01/20/25 0606 <Electronically signed by Sandeep Carlton DO> Cosigner Signature (if applicable): CC: Dr. Sandeep Carlton DO; Dr. Ramone Smiley MD~ Signed [facility] Work Phone: [phone]) [phone] Evaluation note* Diagnosis Onset Date Resolution Status [...] 2024 3:32am Hypertension chronic January 20 3:32am [facility] Work Phone: 1([phone]) 425-522405-23-2025 Evaluation note* Diagnosis Onset Date Resolution Status [...] 20, 2025 3:32am Obesity (BMI 30.0-34.9) inactive [facility] 2024 3:32am Aortic stenosis acute January 31, [...] diabetes mellitus chronic February 04, 2025 10:52am [facility] Work Phone: [phone]) 750-451905-23-2025 Evaluation note* Diagnosis Onset Date Resolution Status [...] 20, 2025 3:32am Obesity (BMI 30.0-34.9) inactive [facility] 2024 3:32am Aortic stenosis acute January 31, [...] diabetes mellitus chronic February 04, 2025 10:52am [facility] Work Phone: 1(765) 171-618205-23-2025 Evaluation note* Diagnosis Onset Date Resolution Status [...] 20, 2025 3:32am Obesity (BMI 30.0-34.9) inactive [facility] System 2024 3:32am Aortic stenosis acute January 31, [...] failure remov ed February 09, 2025 3:00pm [facility] Work Phone: 1(804) 933-391005-23-2025 Evaluation note* Diagnosis Onset Date Resolution Status [...] 2025 1:42pm Hypertension chronic January 31 1:42pm [facility] Work Phone: 1(987) 266-568605-23-2025 Evaluation note* Diagnosis Onset Date Resolution Status [...] failure remov ed February 09, 2025 3:00pm [facility] Work Phone: 1(420) 364-296505-23-2025 Evaluation note* Diagnosis Onset Date Resolution Status [...] Generalized weakness inactive February 15, 2025 2:01pm [facility] Work Phone: 1(288) 729-814905-23-2025 Evaluation note* Diagnosis Onset Date Resolution Status [...] Generalized weakness inactive February 15, 2025 2:01pm [facility] Work Phone: [phone]) 540-358705-23-2025 Evaluation note* Diagnosis Onset Date Resolution Status [...] Back muscle spasm acute March 212024 11:03pm [facility] Work Phone: 1(762) 323-926105-23-2025 Evaluation note* Diagnosis Onset Date Resolution Status [...] 11:03pm COPD exacerbation chronic March 212024 11:03pm [facility] Work Phone: [phone] 617-980905-23-2025 Discharge summary Author Jeevan Yoder [facility] Note Date/Time January 20, 2025 2:43a m [facility] Medical Records Department [address] [place] [address] Emergency Department Summary 01/20/25 MR#: [id number] Acct: [id number] Name: OLGA DONALDSON Rep #:[id number] : 1945 80 From: Jeevan Yoder DO [...] has had progressive worsening shortness of breath. [facility] Medical History Fracture of hip, [...] % (Auto) 58.4 Lymph % (Auto) 32.0 Cotton % (Auto) 7.7 Eos % (Auto) 0.8 [...] Clarity Clear Urine pH 6.0 Ur Specific [place] 1.010 Urine Protein 100 H Urine Glucose [...] noted. Cardiomegaly. No pericardial effusion. Reading Location: [facility] Discharge Plan Triage Chief Complaint: Shortness of [...] MD [Primary Care Provider] - Print Language: Surinamese What to do if you have Problems For any increased pain, shortness of breath, bleeding, nausea or vomiting, chestpain, or any unexpected problems, contact your Primary Care Provider. Call [facility] ([phone]) or report to the closest Emergency Room. Call 911 if necessary. 01/20/25 6453 <Electronically signed by Jeevan Yoder DO> Cosigner Signature (if applicable): CC: Dr. Ramone Smiley MD ~ Signed [facility] Work Phone: 1(129) 519-564805-23-2025 Radiology Diagnostic study [facility]05-18-2025 Discharge summary [facility] Medical Records Department [address] [place] [address] Emergency Department Summary 01/15/25 MR#: [id number] Acct: [id number] Name: OLGA DONALDSON Rep #:[id number] : 1945 80 From: Jeevan Yoder DO [...] of the antibiotic that was placed on. [facility] Medical History Fracture of hip, [...] follow commands and that she was at [facility] the year is [...] 72.7 H Lymph % (Auto) 18.1 L Cotton % (Auto) 6.9 Eos % (Auto) 1.6 [...] IMPRESSION: Cardiomegaly with mild congestion. Reading Location: [facility] Discharge Plan Triage Chief Complaint: [...] with worsening symptoms or concerns. Print Language: Surinamese Disposition Disposition: Home, Self Care What to do if you have Problems For any increased pain, shortness of breath, bleeding, nausea or vomiting, chestpain, or any unexpected problems, contact your Primary Care Provider. Call [facility] ([phone]) or report tothe closest Emergency Room. Call 911 if necessary. 01/15/25 184 Cosigner Signature (if applicable): CC: Dr. Ramone Smiley MD ~ Signed [facility]05-18-2025 Radiology Diagnostic study note [facility] Imaging Services [address] [place], [place] [address] Chest PA and Lateral MR#: [id number] Acct: [id number] Name: OLGA DONALDSON Rep #: [id number] : 1945 F 80 From: Kary Suarez MD PCP: Dr. Ramone Smiley MD Status: REG ER Study:Chest PA and Lateral Date of Exam: 01/15/25 Exam# [id number] Ordering Dr: Yoly Yoder DO EXAM: XR Chest, 2 Views CLINICAL INDICATION: CHEST PAIN TECHNIQUE: Frontal and lateral views of the chest. COMPARISON: No relevant prior studies available. FINDINGS: LUNGS AND PLEURAL SPACES: See below. HEART: Cardiomegaly with mild congestion. MEDIASTINUM: Unremarkable. Normal mediastinal contour. BONES/JOINTS: Unremarkable. No acute fracture. RAD/Chest PA and Lateral IMPRESSION: Cardiomegaly with mild congestion. Reading Location: [facility] CC: Dr. Ramone Smiley MD; Dr. Jeevan Yoder DO ~ Supply Controller: Signed [facility]05-18-2025 Discharge summary Author Jeevan Yoder [facility] Note Date/Time January 15, 2025 6:45p m [facility] Medical Records Department [address] [place] [address] Emergency Department Summary 01/15/25 MR#: [id number] Acct: [id number] Name: OLGA DONALDSON Rep #:[id number] : 1945 80 From: Jeevan Yoder DO [...] of the antibiotic that was placed on. [facility] Medical History Fracture of hip, [...] follow commands and that she was at [facility] the year is [...] 72.7 H Lymph % (Auto) 18.1 L Cotton % (Auto) 6.9 Eos % (Auto) 1.6 [...] IMPRESSION: Cardiomegaly with mild congestion. Reading Location: [facility] Discharge Plan Triage Chief Complaint: Shortness of [...] with worsening symptoms or concerns. Print Language: Surinamese Disposition Disposition: Home, Self Care What to do if you have Problems For any increased pain, shortness of breath, bleeding, nausea or vomiting, chestpain, or any unexpected problems, contact your Primary Care Provider. Call [facility] ([phone]) or report to the closest Emergency Room. Call 911 if necessary. 01/15/251844 <Electronically signed by Jeevan Yoder DO> Cosigner Signature (if applicable): CC: Dr. Ramone Smiley MD ~ Signed [facility] Work Phone: 1(154) 935-460305-10-2025 Discharge summary [facility] Medical Records Department [address] [place] [address] Emergency Department Summary 01/07/25 MR#: [id number] Acct: [id number] Name: OLGA DONALDSON Rep #:[id number] : 1945 80 From: Ethan Casanova PCP: [...] clinician: N/A This note was generated with 21GRAMS dictation software. It may contain incorrectwords, spelling, [...] % (Auto) 58.0 Lymph % (Auto) 31.8 Cotton % (Auto) 7.6 Eos % (Auto) 1.9 [...] IMPRESSION: Cardiomegaly without overt failure. Reading Location: [facility] Discharge Plan Triage Chief Complaint: Shortness of [...] steroids is tomorrow. This was sent to [facility]. Print Language: Surinamese Disposition Disposition: Home, Self Care What to do if you have Problems For any increased pain, shortness of breath, bleeding, nausea or vomiting, chestpain, or any unexpected problems, contact your Primary Care Provider. Call [facility] ([phone]) or report tothe closest Emergency Room. Call 911 if necessary. 01/07/25 1700 Cosigner Signature (if applicable): CC: Dr. Ramone Smiley MD ~ Signed [facility]05-10-2025 Radiology Diagnostic study note [facility] Imaging Services [address] [place] [address] Chest PA and Lateral MR#: [id number] Acct: [id number] Name: OLGA DONALDSON Rep #: [id number] : 1945 F 80 From: Kary Suarez MD PCP: Dr. Ramone Smiley MD Status: PRE ER Study:Chest PA and Lateral Date of Exam: 01/07/25 Exam# [id number] Ordering Dr: Ethan Suarez DO EXAM: XR Chest, 2 Views CLINICAL INDICATION: COUGH TECHNIQUE: Frontal and lateral views of the chest. COMPARISON: No relevant prior studies available. FINDINGS: LUNGS AND PLEURAL SPACES: Unremarkable. No consolidation. No pneumothorax. HEART: Cardiomegaly without overt failure. MEDIASTINUM: Unremarkable. Normal mediastinal contour. BONES/JOINTS: Unremarkable. No acute fracture. RAD/Chest PA and Lateral IMPRESSION: Cardiomegaly without overt failure. Reading Location: [facility] CC: Dr. Ramone Smiley MD; Dr. Ethan Suarez DO ~ Supply Controller: Signed [facility]05-10-2025 Discharge summary Author Ethan Suarez [facility] Note Date/Time January 07, 2025 5:00p m [facility] Medical Records Department [address] [place] [address] Emergency Department Summary 01/07/25 MR#: [id number] Acct: [id number] Name: OLGA DONALDSON Rep #:[id number] : 1945 80 From: Ethan Casanova PCP: [...] clinician: N/A This note was generated with 21GRAMS dictation software. It may contain incorrectwords, spelling, [...] % (Auto) 58.0 Lymph % (Auto) 31.8 Cotton % (Auto) 7.6 Eos % (Auto) 1.9 [...] without overt failure. Reading Location: [facility] Discharge Plan Triage Chief Complaint: Shortness of [...] steroids is tomorrow. This was sent to [facility]. Print Language: Surinamese Disposition Disposition: Home, Self Care What to do if you have Problems For any increased pain, shortness of breath, bleeding, nausea or vomiting, chestpain, or any unexpected problems, contact your Primary Care Provider. Call [facility] ([phone]) or report to the closest Emergency Room. Call 911 if necessary. 01/07/25 1700 <Electronically signed by Ethan Casanova> Cosigner Signature (if applicable): CC: Dr. Ramone Smiley MD ~ Signed [facility] Work Phone: 1(273) 171-110105-01-2024 Progress note Author [facility] December 30, 2023 12:34pm Note Date/Time December 30, 2023 12:35p [facility] Medical Records Department [address] [place] [address] Progress Note - Hospitalist 12/30/23 1228 MR#: [id number] Acct: [id number] Name: OLGA DONALDSON Rep #:[id number] : 1945 78 From: Sunny Blue PCP: Dr. Ramone Smilye MD Status:ADM IN Location: [place] [address] Reason for Visit Reason for Visit: Diagnoses [...] % (Auto) 63.9, Lymph % (Auto) 25.3, Cotton % (Auto) 8.7, Eos % (Auto) 1.4, [...] Patient is a 78-year-old female who presented [facility] ED on 12/27/2023 with left hip pain after a fall at home. She got up from the couch toself catheter, got her walker turned and then lost balance and fell on her left hip. 1. Acute debility due to left impacted transcervical femoral neck fracture. ? Admit under inpatient status to [facility]. Orthopedics consulted. N.p.o. at midnight. PT/OT/case management [...] cousin over the phone who lives in [facility]. Patient is clinically doing well. Currently [...] disposition: TBD Charges/Coding Visit Charges Inpatient E&M: 21393 Subs Hosp L2 12/30/23 1234 <Electronically signed by Sunny Bell MD> Cosigner Signature (if applicable): CC: ~ Signed [facility] Work Phone: 1(106) 385-503104-30-2024 Progress note Author Sunny Bell [facility] December 29, 2023 12:47pm Note Date/Time December 29, 2023 9:3 0am [facility] Medical Records Department [address] [place] [address] Progress Note - Hospitalist 12/29/23 0929 MR#: [id number] Acct: [id number] Name: OLGA DONALDSON Rep #:[id number] : 1945 78 From: Sunny Blue PCP: Dr. Ramone Smiley MD Status:ADM IN Location: [place] [address] Reason for Visit Reason for Visit: Diagnoses [...] (Auto) 81.1 H, Lymph %(Auto) 9.5 L, Cotton % (Auto) 8.5, Eos % (Auto) 0.1, [...] Patient is a 78-year-old female who presented [facility] ED on 12/27/2023 with left hip pain after a fall at home. She got up from the couch toself catheter, got her walker turned and then lost balance and fell on her left hip. 1. Acute debility due to left impacted transcervical femoral neck fracture. ? Admit under inpatient status to [facility]. Orthopedics consulted. N.p.o. at midnight. PT/OT/case management [...] cousin over the phone who lives in [facility]. Patient is clinically doing well. Currently [...] disposition: TBD Charges/Coding Visit Charges Inpatient E&M: 89129 Subs Hosp L2 12/29/23 7533 <Electronically signed by Sunny Bell MD> Cosigner Signature (if applicable): CC: ~ Signed [facility] Work Phone: 1(361) 101-368504-30-2024 Progress note Author Sj Delacruz [facility] December 29, 2023 11:56am Note Date/Time December 29, 2023 11: 56am [facility] Medical Records Department [address] [place] [address] Progress Note - Orthopedic 12/29/23 1152 MR#: [id number] Acct: [id number] Name: OLGA DONALDSON Rep #:[id number] : 1945 78 From: Sj BHATTI PA-C PCP: Dr. Ramone Smiley MD Status:ADM IN Location: MS3 LB601-3 Subjective Subjective Patient sitting at bedside watching [...] (Auto) 81.1 H, Lymph %(Auto) 9.5 L, Cotton % (Auto) 8.5, Eos % (Auto) 0.1, [...] 14:25 EDT Reading Location ID and State: [facility] / [place] , Service support , Hip X-Ray 12/28/23 [...] Cosigner Signature (if applicable): CC: ~ Signed [facility] Work Phone: 1(129) 662-358404-29-2024 Consult note Author Gabriel [facility] December 28, 2023 12:59pm Note Date/Time December 28, 2023 12: 59pm [facility] Medical Records Department [address] [place] [address] Consultation - Orthopedics 12/28/23 1252 MR#: [id number] Acct: [id number] Name: OLGA DONALDSON Rep #:[id number] : 1945 78 From: Gabriel Blue PCP: Dr. Ramone Smiley MD Status:ADM IN Location: [place] [address]-1 HPI Consult Data Date of Consult: 12/28/23 [...] She denies any previous DVTs or PEs. [facility] Medical History Anemia Anxiety Aortic [...] % (Auto) 51.7, Lymph % (Auto) 37.1, Cotton % (Auto) 6.6, Eos % (Auto) 3.1, [...] 23:29 EDT Reading Location ID and State: [facility] / [place] [employer] , Service support , Hip/Pelvis X-Ray 12/27/23 23:05 IMPRESSION: Acute impacted fracture of the transcervical femoral neck. Electronically Signed: Weston Patel MD at 23:30 EDT Reading Location ID and State: 2807 / [place] [employer] , Service support , Assessment & [...] applicable): CC: Dr. Ramone Smiley MD~ Signed [facility] Work Phone: [phone]) [phone] Procedure [facility] 12-28-2023 Progress note Author Sunny Bell [facility] December 28, 2023 11:23am Note Date/Time December 28, 2023 9:5 2am [facility] Medical Records Department [address] [place] [address] Progress Note - Hospitalist 12/28/23 0949 MR#: [id number] Acct: [id number] Name: OLGA DONALDSON Rep #:[id number] : 1945 78 From: Sunny Blue PCP: Dr. Ramone Smiley MD Status:[facility] Reason for Visit Reason for Visit: Diagnoses [...] % (Auto) 51.7, Lymph % (Auto) 37.1, Cotton % (Auto) 6.6, Eos % (Auto) 3.1, [...] Patient is a 78-year-old female who presented [facility] ED on 12/27/2023 with left hip pain after a fall at home. She got up from the couch toself catheter, got her walker turned and then lost balance and fell on her left hip. 1. Acute debility due to left impacted transcervical femoral neck fracture. ? Admit under inpatient status to [facility]. Orthopedics consulted. N.p.o. at midnight. PT/OT/case management [...] disposition: TBD Charges/Coding Visit Charges Inpatient E&M: 67517 Subs Hosp L2 12/28/23 1123 <Electronically signed by Sunny Bell MD> Cosigner Signature (if applicable): CC: ~ Signed [facility] Work Phone: 1(956) 417-318304-29-2024 History and physical note Author Nestor Bartlett [facility] December 28, 2023 4:47am Note Date/Time December 27, 2023 11: 30pm [facility] Medical Records Department [address] [place] [address] H&P Exam - Hospitalist 12/27/23 2330 MR#: [id number] Acct: [id number] Name: OLGA DONALDSON Rep #:[id number] : 1945 78 From: Nestor roman DO PCP: Dr. Ramone Smiley MD Status:ADM IN Location: [facility] BA444-3 HPI - General General Date of Admission: 12/27/23 Date of Service: 12/27/23 Chief Complaint: Left hip fracture HPI Narrative OLGA DONALDSON, is a 78 F who presented to [facility] ED on 12/27/2023 with left [...] Patient will be admitted for further management. [facility] Medical History Anemia Anxiety Aortic [...] % (Auto) 51.7, Lymph % (Auto) 37.1, Cotton % (Auto) 6.6, Eos % (Auto) 3.1, [...] Patient is a 78-year-old female who presented [facility] ED on 12/27/2023 with left hip pain after a fall at home. 1. Left femoral neck fracture ? Admit under inpatient status to [facility]. Orthopedics consulted. N.p.o. at midnight. Preop evaluation [...] 75 minutes. Charges/Coding Visit Charges Inpatient E&M: 68481 Init Hosp L3 12/28/23 9967 <Electronically signed by Nestor Bartlett DO> Cosigner Signature (if applicable): CC: Dr. Nestor Bartlett DO; Dr. Ramone Smiley MD~ Signed [facility] Work Phone: 1(124) 180-527004-29-2024 Discharge summary Author Queta Cortez [facility] December 28, 2023 2:33am Note Date/Time December 27, 2023 10: 23pm [facility] Medical Records Department [address] [place] [address] Emergency Department Summary 12/27/23 MR#: [id number] Acct: [id number] Name: OLGA DONALDSON Rep #:[id number] : 1945 78 From: Queta Cortez MD PCP: Dr. Ramone Smiley MD Status:ADM IN Location: [place] [address]1 HPI HPI - Fall History of Present [...] aspirin but no other form of anticoagulant. [facility] Medical History Anemia Anxiety Aortic [...] chewable tablet 81 mg PO DAILY [facility] 01/21/16 [History Last Taken 08/12/23] albuterol [...] Medical decision making narrative: Patient placed on cardiac monitor technician. Patient given morphine and Zofran for pain [...] % (Auto) 51.7 Lymph % (Auto) 37.1 Cotton % (Auto) 6.6 Eos % (Auto) 3.1 [...] seen Dr. Ravi previously prior to his intermediate. Dr. Byrd is on-call for [facility] and I will [facility] need [facility] repair. Discharge Plan Dx/Rx/DC Orders Clinical Impression: Fracture of hip, left, closed Disposition Disposition: Acute Care Hospital [facility] What to do if you have Problems For any increased pain, shortness of breath, bleeding, nausea or vomiting, chestpain, or any unexpected problems, contact your Primary Care Provider. Call [facility] ([phone]) or report to the closest Emergency Room. Call 911 if necessary. 12/28/23 0233 <Electronically signed by Queta Cortez MD> Cosigner Signature (if applicable): CC: Dr. Ramone Smiley MD ~ Signed [facility] Work Phone: 1(825) 325-727512-18-2023 Consult note Author Derrick Hallman [facility] August 17, 2023 11:38am Note Date/Time August 17, 2023 11:38am [facility] Medical Records Department [address] [place] [address] Counseling Note - Pharmacy 08/17/23 1137 MR#: [id number] Acct: [id number] Name: OLGA DONALDSON Rep #:[id number] : 1945 78 From: Derrick Hallman PCP: Dr. Ramone Smiley MD Status:ADM IN Y Location: [place] [address] Pharmacy [facility] Service has performed [...] tablet 81 mg PO DAILY [facility] 01/21/16 albuterol sulfate 90 mcg/actuation aerosol inhaler [...] Signature (if applicable): Date CC: ~ Signed [facility] Work Phone: 1(832) 590-631012-18-2023 Discharge summary Author Sandeep Denson [facility] August 17, 2023 11:20am Note Date/Time August 17, 2023 11:12am [facility] Medical Records Department [address] [place] [address] Discharge Summary 08/17/23 1111 MR#: [id number] Acct: [id number] Name: OLGA DONALDSON Rep #:[id number] : 1945 78 From: Sandeep Denson MD PCP: Dr. Ramone Smiley MD Status:ADM IN Location: [place] [id number]- 1 Providers Date of Admission: 08/13/23 Date [...] chewable tablet 81 mg PO DAILY [facility] 01/21/16 albuterol sulfate 90 mcg/actuation aerosol [...] - Requested for PT OT eval and bilingual social worker to assist with discharge planning [...] Document 08/14/23 13:49 AG (Rec: 08/14/23 13:49 [id number]) Nutrition Malnutrition Evidence of Malnutrition Exists Yes [...] Right Blood Culture - Final GNR lactose back padder 08/13/23 11:10 Blood Culture (Wb) - Anticubital [...] Attending Provider: Sandeep Denson Primary Care Provider: Raomne Smiley Consulting Providers: Ramone Veras; Nestor Bartlett [...] Anne Marie Marshall MD [Med Staff - [employer] Furniture] - 08/25/23 10:30 am Disposition Disposition (needs filled in before D/C Order can be placed): Home, Self Care Charges/Coding Visit Charges Inpatient E&M: 30751 Disch Hosp >30min 08/17/23 1120 <Electronically signed by Sandeep Denson MD> Cosigner Signature (if applicable): CC: Dr. Sandeep Denson MD; Dr. Ramone Smiley MD~ Signed [facility] Work Phone: 1(282) 708-556112-17-2023 Progress note Author [facility] August 16, 2023 1:08pm Note Date/Time August 16, 2023 1:08pm [facility] Medical Records Department [address] [place] [address] Progress Note - Hospitalist 08/16/23 1300 MR#: [id number] Acct: [id number] Name: OLGA DONALDSON Rep #:[id number] : 1945 78 From: Nestor roman DO PCP: Dr. Ramone Smiley MD Status:ADM IN Location: [place] [address]- Reason for Visit Reason for Visit: Diagnoses [...] 08/14/23 13:49 AG (Rec: 08/14/23 13:49 AG [id number]) Nutrition Malnutrition Evidence of Malnutrition Exists Yes [...] Right Blood Culture - Final GNR lactose back padder 08/13/23 11:10 Blood Culture (Wb) - Anticubital [...] is a 78-year-old female who presented to [facility] ED on 08/13/2023 with increasing [...] 35 minutes. Charges/Coding Visit Charges Inpatient E&M: 41575 Subs Hosp L2 08/16/23 1308 <Electronically signed by Nestor Bartlett DO> Cosigner Signature (if applicable): CC: ~ Signed [facility] Work Phone: 1(729) 751-941212-16-2023 Progress note Author Nestor [facility] August 15, 2023 1:28pm Note Date/Time August 15, 2023 1:24pm [facility] Medical Records Department [address] [facility] [place] [address] Progress Note - Hospitalist 08/15/23 1317 MR#: [id number] Acct: [id number] Name: OLGA DONALDSON Rep #:[id number] : 1945 78 From: Nestor roman DO PCP: Dr. Ramone Smiley MD Status:ADM IN Location: [place] [address] Reason for Visit Reason for Visit: Diagnoses [...] 08/14/23 13:49 AG (Rec: 08/14/23 13:49 AG [id number]) Nutrition Malnutrition Evidence of Malnutrition Exists Yes [...] Right Blood Culture - Preliminary GNR lactose back padder 08/13/23 11:00 Nasal Secretion SARS-CoV-2 & FLU [...] is a 78-year-old female who presented to [facility] ED on 08/13/2023 with increasing [...] cultures preliminarily positive for gram-negative wes lactose back padder, follow-up speciation and sensitivities. 3. LIA, resolved [...] 35 minutes. Charges/Coding Visit Charges Inpatient E&M: 32334 Subs Hosp L2 08/15/23 1328 <Electronically signed by Nestor Bartlett DO> Cosigner Signature (if applicable): CC: ~ Signed [facility] Work Phone: 1(923) 624-918812-15-2023 Progress note Author Nestor [facility] August 14, 2023 3:08pm Note Date/Time August 14, 2023 2:58pm [facility] Medical Records Department [address] [place] [address] Progress Note - Hospitalist 08/14/23 1454 MR#: [id number] Acct: [id number] Name: OLGA DONALDSON Rep #:[id number] : 1945 78 From: Nestor roman DO PCP: Dr. Ramone Smiley MD Status:ADM IN Location: [place] [address] Reason for Visit Reason for Visit: Diagnoses [...] 08/14/23 13:49 AG (Rec: 08/14/23 13:49 AG [id number]) Nutrition Malnutrition Evidence of Malnutrition Exists Yes [...] (Auto) 79.7 H, Lymph% (Auto) 11.1 L, Cotton % (Auto) 6.1, Eos % (Auto) 0.6, [...] Catheterized Urine Culture - Preliminary GNR lactose back padder 08/13/23 12:05 Blood Culture (Wb) - Anticubital Right Blood Culture - Preliminary GNR lactose back padder 08/13/23 11:10 Blood Culture (Wb) - Anticubital Right Blood Culture - Preliminary GNR lactose back padder 08/13/23 11:00 Nasal Secretion SARS-CoV-2 & FLU [...] is a 78-year-old female who presented to [facility] ED on 08/13/2023 with increasing [...] cultures preliminarily positive for gram-negative wes lactose back padder, follow-up speciation and sensitivities. 3. LAI, resolved ? Creatinine 1.18 on admit, baseline [...] 35 minutes. Charges/Coding Visit Charges Inpatient E&M: 86180 Subs Hosp L2 08/14/23 1508 <Electronically signed by Nestor Bartlett DO> Cosigner Signature (if applicable): CC: ~ Signed [facility] Work Phone: [phone]) 117-402012-14-2023 Discharge summary Author [facility] August 13, 2023 3:29pm Note Date/Time August 13, 2023 10:40am [facility] Medical Records Department [address] [place] [address] Emergency Department Summary 08/13/23 MR#: [id number] Acct: [id number] Name: OLGA DONALDSON Rep #:[id number] : 1945 78 From: Robert Allison DO PCP: Dr. Ramone Smiley MD Status:ADM IN Location: [place] [address] HPI History of Present Illness Chief Complaint: [...] She denies chest pain. She self caths. [facility] Medical History Anemia Anxiety Aortic [...] tablet 81 mg PO DAILY [facility] 01/21/16 [History Last Taken 08/12/23] albuterol sulfate [...] 82.7 H Lymph % (Auto) 9.4 L Cotton % (Auto) 6.1 Eos % (Auto) 0.1 [...] Sl. Cloudy Urine pH 5.0 Ur Specific [place] 1.015 Urine Protein 30 H Urine Glucose [...] Acute hyponatremia Disposition Disposition: Acute Care Hospital [facility] Discharge Date/Time: 08/13/23 14:54 What to do if you have Problems For any increased pain, shortness of breath, bleeding, nausea or vomiting, chestpain, or any unexpected problems, contact your Primary Care Provider. Call [facility] ([phone]) or report to the closest Emergency Room. Call 911 if necessary. 08/13/23 1529 <Electronically signed by Robert Allison DO> Cosigner Signature (if applicable): CC: Dr. Ramone Smiley MD ~ Signed [facility] Work Phone: [phone]) 715-279112-14-2023 History and physical note Author Heydi Amaya [facility] August 13, 2023 2:47pm Note Date/Time August 13, 2023 2:33pm [facility] Medical Records Department [address] [place] [address] H&P Exam - Hospitalist 08/13/23 1431 MR#: [id number] Acct: [id number] Name: OLGA DONALDSON Rep #:[id number] : 1945 78 From: Heydi Amaya MD PCP: Dr. Ramone Smiley MD Status:ADM IN Location: [place] [address] HPI - General General Date of Admission: 08/13/23 Date of Service: 08/13/23 Chief Complaint: Increasing weakness HPI Narrative OLGA DONALDSON, is [id number] female history of GERD, COPD, hypertension, diabetes, chronic urinary retention with self cathing presented to [facility] 08/13/2023 with increasing generalized weakness [...] No other acute complaints at this time. [facility] Medical History Anemia Anxiety Aortic [...] (Auto) 82.7 H, Lymph% (Auto) 9.4 L, Cotton % (Auto) 6.1, Eos % (Auto) 0.1, [...] Sl. Cloudy, Urine pH 5.0, Ur Specific [place] 1.015, Urine Protein 30 H, Urine Glucose [...] Amaya MD Charges/Coding Visit Charges Inpatient E&M: 51714 Init Hosp L2 08/13/23 1447 <Electronically signed by Heydi Amaya MD> Cosigner Signature (if applicable): CC: Dr. Ramone Smiley MD; Dr. Heydi Amaya MD~ Signed [facility] Work Phone: [phone]) 889-695705-31-[address] Lockwood [facility] January 28, 2023 4:30pm Note Date/Time January 28, 2023 3:17p m [facility] Medical Records Department [address] [place] [address] Emergency Department Summary 01/28/23 MR#: [id number] Acct: [id number] Name: OLGA DONALDSON Rep #:[id number] : 1945 78 From: Joseph Lockwood MD [...] pain which she has every single day. [facility] Medical History Anemia Anxiety Aortic [...] unit/mL subcutaneous solution 22 unit SQ BIDCM skmyasqa73/03/20 [History Last Taken Unknown] insulin detemir U-100 [...] % (Auto) 56.6 Lymph % (Auto) 34.2 Cotton % (Auto) 5.6 Eos % (Auto) 2.6 [...] UNIT/ML solution 22 unit SQ BIDCM vitamin U-ppeemtkawfgq-rvzebet 500 MG tablet,chewable 250 mg PO DAILY Primary Care Provider: Ramone Smiley Referrals: Ramone Smiley MD [Primary Care Provider] - 3-5 Days Disposition Disposition: Home, Self Care What to do if you have Problems For any increased pain, shortness of breath, bleeding, nausea or vomiting, chestpain, or any unexpected problems, contact your Primary Care Provider. Call [facility] ([phone]) or report to the closest Emergency Room. Call 911 if necessary. 01/28/23 1630 <Electronically signed by Joseph Lockwood MD> Cosigner Signature (if applicable): CC: Dr. Ramone Smiley MD ~ Signed [facility] Work Phone: [phone] 112-726009-07-2022 NoteHNO ID: [id number] Author: 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 APRN.[employer] Service: ? Author Type: Nurse Practitioner Type: [...] an every 2-week basis for 4 cycles (CALGB-86724). Completed a year of trastuzumab 06/16/06. Referred back or anemia. Admitted to [facility] 12/02/2019 for chest pain with [...] 1.00 - 4.00 k/uL 2.70 2.30 2.03 Cotton% % 7.0 6.6 6.9 Abs Cotton <0.87 k/uL 0.49 0.47 0.47 Eosin% % [...] loss - ICD9: 280.0, (more content not included)...[facility]09-07-2022 History of Present illness Narrative* 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 APRN.[facility] - 05/07/2022 1:33 PM EDT Chief [...] an every 2-week basis for 4 cycles (CALGB-10610). Completed a year of trastuzumab 06/16/06. Referred back or anemia. Admitted to [facility] 12/02/2019 for chest pain with [...] 1.00 - 4.00 k/uL 2.70 2.30 2.03 Cotton% % 7.0 6.6 6.9 Abs Cotton <0.87 k/uL 0.49 0.47 0.47 Eosin% % [...] visit. 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 APRN.MARLI documented in this encounter[facility]-2022 Miscellaneous Notes* Telephone Encounter - Stacie Varner LPN - 02/10/2022 8:33 AM EDT Pt called and notified, pt voices understanding. Stacie Varner LPN * Telephone Encounter - Joseph Rolle DO - 02/10/2022 6:20 AM EDT Can let her know CBC and iron levels doing well. Follow up as scheduled. Joseph Rolle DO documented in this encounterSelect [facility]01-31-2022 Miscellaneous Notes* Telephone Encounter - Joseph Rolle [...] filed. 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 Add on for 5 more doses of iron sucrose and repeat CBC/Iron studies about a month after completing. Joseph Rolle DO documented in this encounterSelect Medical [facility] ShawConlt note Author Eboni Chan [facility] December 30, 2023 2:23pm Note Date/Time December 30, 2023 2:24pm [facility] Medical Records Department [address] [place] [address] Counseling Note - Pharmacy 12/30/23 1423 MR#: [id number] Acct: [id number] Name: OLGA DONALDSON Rep #:[id number] : 1945 78 From: Eboni Chan PCP: Dr. Ramone Smiley MD Status:ADM IN Location: [place] [address] [place] Med Reconciliation Pharmacy Service has performed discharge medication reconciliation for this patient. The patient's discharge medication list was reviewed for discrepancies and discrepancies were resolved. Medications at Discharge Home Medications aspirin 81 mg chewable tablet 81 mg PO DAILY [facility] 01/21/16 albuterol sulfate 90 [...] Signature (if applicable): Date CC: ~ Signed [facility] Work Phone: Consult note Author Eboni Chan [facility] Note Date/Time January 24, 2025 2:52p [facility] Medical Records Department [address] [place] [address] Counseling Note - Pharmacy 01/24/25 1451 MR#: [id number] Acct: [id number] Name: OLGA DONALDSON Rep #:[id number] : 1945 80 From: Eboni Chan PCP: Dr. Ramone Smiley MD Status:ADM [facility] Counseling Pharmacy Service has performed discharge [...] chewable tablet 81 mg PO DAILY [facility] 01/21/16 magnesium oxide 400 mg [...] Signature (if applicable): Date CC: ~ Signed [facility] Work Phone: Discharge summary Author Sunny Bell [facility] December 30, 2023 2:14pm Note Date/Time December 30, 2023 2:05pm [facility] Medical Records Department [address] [place] [address] Transfer to [facility] MR#: [id number] Acct: [id number] Name: OLGA DONALDSON Rep #:[id number] : 1945 78 From: Sunny Blue PCP: Dr. Ramone Smiley MD Status:ADM IN Certification of patient admission REQUIRED AT TIME OF ADMISSION. I CERTIFY THAT POST-HOSPITAL ECF SERVICES ARE REQUIRED TO BE GIVEN ON AN IN-PATIENT BASIS BECAUSE OF THE ABOVE NAMED PATIENT'S NEED FOR SKILLED NURSING CARE ON A CONTINUING BASIS FOR THE [...] Patient is a 78-year-old female who presented [facility] ED on 12/27/2023 with left hip pain after a fall at home. She got up from the couch toself catheter, got her walker turned and then lost balance and fell on her left hip. 1. Acute debility due to left impacted transcervical femoral neck fracture. ? Admit under inpatient status to [facility]. Orthopedics consulted. N.p.o. at midnight. PT/OT/case management [...] cousin over the phone who lives in [facility]. Patient is clinically doing well. Currently [...] in before D/C Order can be placed): [facility] 12/30/23 1414 <Electronically signed by Sunny Bell MD> Cosigner Signature (if applicable): CC: Dr. Nestor Bartlett DO; Dr. Ramone Smiley MD; Dr. Gabriel Byrd MD ~ [facility] Work Phone: Discharge summary Author Sunny Bell [facility] December 30, 2023 2:26pm Note Date/Time December 30, 2023 2:21pm [facility] Medical Records Department [address] [place] [address] Discharge Summary 12/30/23 1414 MR#: [id number] Acct: [id number] Name: OLGA DONALDSON Rep #:[id number] : 1945 78 From: Sunny Blue PCP: Dr. Ramone Smiley MD Status:ADM [facility] Date of Admission: 12/27/23 Date of [...] Patient is a 78-year-old female who presented [facility] ED on 12/27/2023 with left hip pain after a fall at home. She got up from the couch toself catheter, got her walker turned and then lost balance and fell on her left hip. 1. Acute debility due to left impacted transcervical femoral neck fracture. ? Admit under inpatient status to [facility]. Orthopedics consulted. N.p.o. at midnight. PT/OT/case management [...] cousin over the phone who lives in [facility]. Patient is clinically doing well. Currently [...] tablet 81 mg PO DAILY [facility] 01/21/16 albuterol sulfate 90 mcg/actuation aerosol inhaler [...] % (Auto) 63.9, Lymph % (Auto) 25.3, Cotton % (Auto) 8.7, Eos % (Auto) 1.4, [...] Attending Provider: Sunny Bell Primary Care Provider: Raomne Smiley Consulting Providers: Gabriel Byrd; Nestor Bartlett [...] in before D/C Order can be placed): [facility] Charges/Coding Visit Charges Inpatient E&M: 16475 Disch Hosp >30min 12/30/23 1426 <Electronically signed by Sunny Bell MD> Cosigner Signature (if applicable): CC: Dr. Ramone Smiley MD; Dr. Sunny Bell MD; Dr. Gabriel Byrd MD~ Signed [facility] Work Phone: Discharge summary Author Melba [facility] Note Date/Time January 24, 2025 1:27p m [facility] Medical Records Department [address] [place] [address] Instructions for Home/Discharge Instructions 01/24/25 1326 MR#: [id number] Acct: [id number] Name: OLGA DONALDSON Rep #:[id number] : 1945 80 From: Melba Hartmann MD [...] DO; Dr. Marcelina Soto MD ~ Signed [facility] Work Phone: Discharge summary Author [facility] Note Date/Time January 26, 2025 5:10a m [facility] Medical Records Department [address] [place] [address] Emergency Department Summary 01/26/25 MR#: [id number] Acct: [id number] Name: OLGA DONALDSON Rep #:[id number] : 1945 80 From: Jg Bryan DO [...] symptoms and therefore comes in for evaluation [facility] Medical History Fracture of hip, [...] cardiac dysrhythmia. Patient was kept on the cardiac monitor technician and there was no dysrhythmia noted. Blood [...] % (Auto) 65.0 Lymph % (Auto) 25.1 Cotton % (Auto) 6.7 Eos % (Auto) 2.8 [...] the upper limits for size. Reading Location: [facility] Chest x-ray as interpreted by the [...] you have any further concerns Print Language: Surinamese Disposition Disposition: Home, Self Care What to do if you have Problems For any increased pain, shortness of breath, bleeding, nausea or vomiting, chestpain, or any unexpected problems, contact your Primary Care Provider. Call [facility] ([phone]) or report to the closest Emergency Room. Call 911 if necessary. 01/26/25 0510 <Electronically signed by Jg Bryan DO> Cosigner Signature (if applicable): CC: Dr. Ramone Smiley MD ~ Signed [facility] Work Phone: Discharge summary Author Aj Holley [facility] Note Date/Time February 04, 2025 10:27 am [facility] Medical Records Department [address] [place] [address] Emergency Department Summary 02/04/25 MR#: [id number] Acct: [id number] Name: OLGA DONALDSON Rep #:[id number] : 1945 80 From: Aj Holley MD [...] of the couch, and has no pain. [facility] Medical History Elevated troponin Coronary [...] (Reviewed 01/31/25 @ 16:15 by Whitney Cao FLATTENING MACHINE OPERATOR, FLATTENING MACHINE OPERATOR-C) Daughter Breast cancer Father Hypertension Sister Cancer [...] 75.4 H Lymph % (Auto) 15.7 L Cotton % (Auto) 6.6 Eos % (Auto) 1.7 [...] MD [Primary Care Provider] - Print Language: Surinamese What to do if you have Problems For any increased pain, shortness of breath, bleeding, nausea or vomiting, chestpain, or any unexpected problems, contact your Primary Care Provider. Call [facility] ([phone]) or report to the closest Emergency Room. [...] 11.8 and 37.9. White count slightly elevated [place] 0.2 thousand. There is slight shift with [...] cc: Dr. Ramone Smiley MD ~* Signed [facility] Work Phone: Evaluation note* Diagnosis Onset Date Resolution Status Multiple thyroid nodules acu te Chronic renal failure, stage 3 (moderate) chronic Hypercalcemia chronic Abscess acute Abscess acute Abscess acute [facility] Work Phone: Evaluation note* Diagnosis Iron deficiency anemia due to chronic blood loss- Primary Iron deficiency anemia secondary to blood loss (chronic) documented in this encounter [facility] note* Diagnosis Onset Date Resolution Status Abscess acute Abscess acute Abscess acute Abscess acute Abscess acute Paronychia of left index finger acute [facility] Work Phone: Evaluation note* Diagnosis Iron deficiency anemia due to chronic blood loss- Primary Iron deficiency anemia secondary to blood loss (chronic) documented in this encounter [facility] note* Diagnosis Anemia, unspecified type- Primary documented in this encounter [facility] note* Diagnosis Iron deficiency anemia due to chronic blood loss- Primary Iron deficiency anemia secondary to blood loss (chronic) documented in this encounter [facility] noteNo assessment information availableWHighland District Hospital Work Phone: Evaluation note* Diagnosis Onset Date Resolution Status Gastroenteritis acute [facility] Work Phone: Evaluation note* Diagnosis Onset Date Resolution Status Gastroenteritis acute Falls acute Weakness acute Asthma chronic COPD (chronic obstructive pulmonary disease) chronic GERD (gastroesophageal reflux disease) chronic History of malignant neoplasm of breast chronic Hypertension chronic Neurogenic bladder chronic Type 2 diabetes mellitus chr onic Acute hyponatremia resolved Acute UTI resolved LIA (acute kidney injury) re solved [facility] Work Phone: Evaluation note* Diagnosis Onset Date Resolution Status Fracture of hip, left, closed acute [facility] Work Phone: Evaluation note* Diagnosis Onset Date Resolution Status Falls acute Fracture of hip, left, closed acute Microcytic anemia acute Weakness acute Chronic renal failure, stage 3 (moderate) chronic Hypercalcemia chronic [facility] Work Phone: Evaluation note* Diagnosis Onset Date Resolution Status Gastroenteritis acute Acute hyponatremia acute Acute UTI acute LIA (acute kidney injury) ac jason [place] acute Weakness acute Asthma chronic COPD (chronic obstructive pulmonary disease) chronic GERD (gastroesophageal reflux disease) chronic History of malignant neoplasm of breast chronic Hypertension chronic Neurogenic bladder chronic Type 2 diabetes mellitus chr onic [facility] Work Phone: History and physical note Author Heydi Amaya [facility] August 13, 2023 2:47pm Note Date/Time August 13, 2023 2:33pm [facility] Medical Records Department [address] [place] [address] H&P Exam - Hospitalist 08/13/23 1431 MR#: [id number] Acct: [id number] Name: OLGA DONALDSON Rep #:[id number] : 1945 78 From: Heydi Amaya MD PCP: Dr. Ramone Smiley MD Status:ADM IN [facility] - General General Date of Admission: 08/13/23 Date of Service: 08/13/23 Chief Complaint: Increasing weakness HPI Narrative OLGA DONALDSON, is [id number] female history of GERD, COPD, hypertension, diabetes, chronic urinary retention with self cathing presented to [facility] 08/13/2023 with increasing generalized weakness [...] No other acute complaints at this time. [facility] Medical History Anemia Anxiety Aortic [...] tablet 81 mg PO DAILY [facility] 01/21/16 [History Last Taken 08/12/23] albuterol sulfate [...] (Auto) 82.7 H, Lymph% (Auto) 9.4 L, Cotton % (Auto) 6.1, Eos % (Auto) 0.1, [...] Sl. Cloudy, Urine pH 5.0, Ur Specific [place] 1.015, Urine Protein 30 H, Urine Glucose [...] Amaya MD Charges/Coding Visit Charges Inpatient E&M: 40361 Init Hosp L2 08/13/23 1447 <Electronically signed by Heydi Amaya MD> Cosigner Signature (if applicable): CC: Dr. Ramone Smiley MD; Dr. Heydi Amaya MD~ Signed [facility] Work Phone: History and physical note Author Tono Kitchenak [facility] Note Date/Time February 09, 2025 3:52 pm [facility] Medical Records Department [address] [place] [address] H&P Exam - Hospitalist 02/09/25 1525 MR#: [id number] Acct: [id number] Name: OLGA DONALDSON Rep #:[id number] : 1945 80 From: Tono BHATTI PA [...] tightness, no dizziness or lightheadedness, no palpitations. [facility] Medical History COPD with exacerbation [...] (Auto) 86.9 H, Lymph % (Auto) 7.3L, Cotton % (Auto) 4.5, Eos % (Auto) 0.1, [...] degree of bibasilar linear atelectasis. Reading Location: [place] [address] Assessment & Plan Assessment/Plan (1) COPD exacerbation: [...] DAVY Dykes; Dr. Ramone Smiley MD~ Signed [facility] Work Phone: History and physical note Author Nestor Bartlett [facility] Note Date/Time February 15, 2025 2:57 pm [facility] Medical Records Department [address] [place] [address] H&P Exam - Hospitalist 02/15/25 1401 MR#: [id number] Acct: [id number] Name: OLGA DONALDSON Rep #:[id number] : 1945 80 From: Nestor roman DO PCP: Dr. Ramone Smiley MD Status:ADM JESS Location: [facility] [id number] HPI - General General Date of Admission: 02/15/25 Date of Service: 02/15/25 Chief Complaint: Shortness of breath, acute on chronic debility HPI Narrative OLGA DONALDSON, is a 80 F who presented to [facility] ED on 02/15/2025 with shortness [...] currently. Will be admitted for further management. [facility] Medical History (Updated 02/15/25 @ [...] 82.5 H, Lymph % (Auto) 10.9 L, Cotton % (Auto) 4.8, Eos % (Auto) 0.7, [...] evidence of acute cardiopulmonary process. [facility] Assessment & Plan Assessment/Plan (1) Generalized weakness: PLAN: Plan Patient is an 80-year-old female who presented [facility] ED on 02/15/2025 with recurrent shortness of breath and acute on chronic debility. 1. Acute on chronic debility ? Admit under observation status to [facility]. PT/OT/case management consulted. Multiple recent hospitalizations for [...] 75 minutes. Charges/Coding Visit Charges Inpatient E&M: 51461 Init Hosp L3 02/15/25 2288 <Electronically signed by Nestor Bartlett DO> Cosigner Signature (if applicable): CC: Dr. Nestor Bartlett DO; Dr. Ramone Smiley MD~ Signed [facility] Work Phone: Hospital Discharge instructions [...] steroids is tomorrow. This was sent to [facility] Work Phone: Hospital Discharge instructions Additional Instructions Take medications as prescribed. Follow-up your doctor in outpatient setting. Return with worsening symptoms or concerns.[facility] Work Phone: Hospital Discharge instructions [...] the ER should you have any [facility] Work Phone: Hospital Discharge instructions Additional Instructions Continue your steroids and your nebulizer treatments as previously directed. Your chest x-ray did not show pneumonia today. Continue to wear your nasal cannula oxygen.[facility] Work Phone: Hospital Discharge instructionsAdditional Instructions Follow-up with your doctor in outpatient setting. Follow-up and urine culture. Take antibiotic as prescribed sent to your pharmacy. Urinalysis did show evidence of infection. Take MiraLAX twice daily until you are having good bowel movements then you can reduce to once daily. Return with any other concerns or worsening symptomsWH[facility] Hospital Work Phone: Reason for referral (narrative)No reason for referral information availableWHighland District Hospital Work Phone: Summary Purpose Family History [...] Yes December 02, 2021 8:47am Power of Dewaterer Operator Yes December 02 8:47am Documents on File Type Date Recorded Patient Acid Tester Expl anation Advance Directive(s) 05/12/2016 10:06 AM Advance Directive(s) 04/30/2016 11:10 AM Advance Directive(s) 02/19/2016 5:55 AM Advance Directive(s) 02/14/2016 3:07 PM Advance Directive Response Recorded Date/ Time Advance Directives Yes December 02 7:47am Living Will Yes July 14, 2 022 2:52pm Power of Dewaterer Operator Yes July 14, 2022 2:52pm Name of Medical Power of Dewaterer Operator son July 14, 2022 2:52pm Advance Directive Response Recorded Date/ Time Advance Directives Yes December 02 8:47am Living Will Yes July 14, 2 022 3:52pm Power of Dewaterer Operator Yes July 14, 2022 3:52pm Advance Directive Response Recorded Date/ Time Name of Medical Power of Dewaterer Operator SHANTELLE January 28, 2023 3:11pm Advance Directives Yes December 02 8:47am Living Will Yes January 28, 2023 3 :11pm Power of Dewaterer Operator Yes January 28, 2023 3:11pm Advance Directive Response Recorded Date/ Time Name of Medical Power of Dewaterer Operator Ursula Donaldson July 18, 2023 11:35pm Advance Directives Yes December 02 7:47am Living Will Yes July 18, 023 11:35pm Power of Dewaterer Operator Yes July 18, 2023 11:35pm Advance Directive Response Recorded Date/ Time Name of Medical Power of Dewaterer Operator . August 07, 2023 9:45pm Advance Directives Yes December 02 7:47am Living Will No August 13, 023 3:22pm Power of Dewaterer Operator No August 13, 2023 3:22pm Name of Medical Power of Dewaterer Operator Ursula Donaldson July 18, 2023 11:35pm Advance Directive Response Recorded Date/ Time Advance Directives Yes December 02 8:47am Living Will No August 13, 023 4:22pm Power of Dewaterer Operator No August 13, 2023 4:22pm Advance Directive Response Recorded Date/ Time Advance Directives Yes December 02 8:47am Living Will No December 27, 2023 11:02pm Power of Dewaterer Operator No December 26 11:02pm Advance Directive Response Recorded Date/ Time Advance Directives Yes December 02 8:47am Living Will No December 28, 2023 12:27am Power of Dewaterer Operator No December 27 12:27am Advance Directive Response Recorded Date/ Time Name of Medical Power of Dewaterer Operator . August 07, 2023 9:45pm Advance Directives Yes December 02 7:47am Living Will No August 13 023 11:05am Power of Dewaterer Operator No August 13, 2023 11:05am Name of Medical Power of Dewaterer Operator Ursula Donaldson July 18, 2023 11:35pm Advance Directive Response Recorded Date/ Time Do you have a Healthcare Power of Dewaterer Operator? No January 07, 2025 3:00pm Advance Directives Yes December 02 8:47am Advance Directive Response Recorded Date/ Time Do you have a Healthcare Power of Dewaterer Operator? No January 15, 2025 2:24pm Do you have a Healthcare Power of Dewaterer Operator? No January 07, 2025 3:00pm Advance Directives Yes December 02 8:47am Advance Directive Response Recorded Date/ Time Do you have a Healthcare Power of Dewaterer Operator? No January 15, 2025 2:24pm Do you have a Healthcare Power of Dewaterer Operator? No January 20, 2025 4:39am Do you have a Healthcare Power of Dewaterer Operator? No January 07, 2025 3:00pm Advance Directives Yes December 02 8:47am Advance Directive Response Recorded Date/ Time Do you have a Healthcare Power of Dewaterer Operator? No January 15, 2025 2:24pm Do you have a Healthcare Power of Dewaterer Operator? No January 20, 2025 4:39am Do you have a Healthcare Power of Dewaterer Operator? No January 07, 2025 3:00pm Do you have a Healthcare Power of Dewaterer Operator? No January 26, 2025 3:01am Advance Directives Yes December 02 8:47am Advance Directive Response Recorded Date/ Time Do you have a Healthcare Power of Dewaterer Operator? No January 15, 2025 2:24pm Do you have a Healthcare Power of Dewaterer Operator? No January 20, 2025 4:39am Do you have a Healthcare Power of Dewaterer Operator? Yes February 04, 2025 6:32am Name of Medical Power of Dewaterer Operator February 04, 2025 6:32am Do you have a Healthcare Power of Dewaterer Operator? No January 07, 2025 3:00pm Do you have a Healthcare Power of Dewaterer Operator? No January 26, 2025 3:01am Advance Directives Yes December 02 8:47am Advance Directive Response Recorded Date/ Time Do you have a Healthcare Power of Dewaterer Operator? No January 15, 2025 2:24pm Do you have a Healthcare Power of Dewaterer Operator? No January 20, 2025 4:39am Do you have a Healthcare Power of Dewaterer Operator? Yes February 04, 2025 12:35pm Name of Medical Power of Dewaterer Operator February 04, 2025 6:32am Do you have a Healthcare Power of Dewaterer Operator? No January 07, 2025 3:00pm Do you have a Healthcare Power of Dewaterer Operator? No January 26, 2025 3:01am Advance Directives Yes December 02 8:47am Advance Directive Response Recorded Date/ Time Do you have a Healthcare Power of Dewaterer Operator? No January 15, 2025 2:24pm Do you have a Healthcare Power of Dewaterer Operator? No January 20, 2025 4:39am Do you have a Healthcare Power of Dewaterer Operator? Yes February 04, 2025 12:35pm Name of Medical Power of Dewaterer Operator February 04, 2025 6:32am Do you have a Healthcare Power of Dewaterer Operator? Yes February 09, 2025 12:01pm Name of Medical Power of Dewaterer Operator [email or web address] lees jr February 09, 2025 12:01pm Do you have a Healthcare Power of Dewaterer Operator? No January 07, 2025 3:00pm Do you have a Healthcare Power of Dewaterer Operator? No January 26, 2025 3:01am Advance Directives Yes December 02 8:47am Advance Directive Response Recorded Date/ Time Do you have a Healthcare Power of Dewaterer Operator? No January 15, 2025 2:24pm Do you have a Healthcare Power of Dewaterer Operator? No January 20, 2025 4:39am Do you have a Healthcare Power of Dewaterer Operator? Yes February 04, 2025 12:35pm Name of Medical Power of Dewaterer Operator February 04, 2025 6:32am Do you have a Healthcare Power of Dewaterer Operator? Yes February 09, 2025 4:43pm Name of Medical Power of Dewaterer Operator ursula lees jr February 09, 2025 4:43pm Do you have a Healthcare Power of Dewaterer Operator? No January 07, 2025 3:00pm Do you have a Healthcare Power of Dewaterer Operator? No January 26, 2025 3:01am Advance Directives Yes December 02 8:47am Advance Directive Response Recorded Date/ Time Do you have a Healthcare Power of Dewaterer Operator? No January 15, 2025 2:24pm Do you have a Healthcare Power of Dewaterer Operator? No January 20, 2025 4:39am Do you have a Healthcare Power of Dewaterer Operator? Yes February 04, 2025 12:35pm Name of Medical Power of Dewaterer Operator February 04, 2025 6:32am Do you have a Healthcare Power of Dewaterer Operator? Yes February 09, 2025 4:43pm Name of Medical Power of Dewaterer Operator [email or web address] lees jr February 09, 2025 4:43pm Do you have a Healthcare Power of Dewaterer Operator? Yes February 15, 2025 8:36am Do you have a Healthcare Power of Dewaterer Operator? No January 07, 2025 3:00pm Do you have a Healthcare Power of Dewaterer Operator? No January 26, 2025 3:01am Advance Directives Yes December 02 8:47am Advance Directive Response Recorded Date/ Time Do you have a Healthcare Power of Dewaterer Operator? No January 15, 2025 2:24pm Do you have a Healthcare Power of Dewaterer Operator? No January 20, 2025 4:39am Do you have a Healthcare Power of Dewaterer Operator? Yes February 04, 2025 12:35pm Name of Medical Power of Dewaterer Operator February 04, 2025 6:32am Do you have a Healthcare Power of Dewaterer Operator? Yes February 09, 2025 4:43pm Name of Medical Power of Dewaterer Operator ursula lees jr February 09, 2025 4:43pm Do you have a Healthcare Power of Dewaterer Operator? Yes February 15, 2025 3:20pm Do you have a Healthcare Power of Dewaterer Operator? No January 07, 2025 3:00pm Do you have a Healthcare Power of Dewaterer Operator? No January 26, 2025 3:01am Advance Directives Yes December 02 8:47am Advance Directive Response Recorded Date/ Time Do you have a Healthcare Power of Dewaterer Operator? No January 15, 2025 2:24pm Do you have a Healthcare Power of Dewaterer Operator? No January 20, 2025 4:39am Do you have a Healthcare Power of Dewaterer Operator? Yes February 04, 2025 12:35pm Name of Medical Power of Dewaterer Operator February 04, 2025 6:32am Do you have a Healthcare Power of Dewaterer Operator? Yes February 09, 2025 4:43pm Name of Medical Power of Dewaterer Operator [email or web address] lees jr February 09, 2025 4:43pm Do you have a Healthcare Power of Dewaterer Operator? Yes February 15, 2025 3:20pm Do you have a Healthcare Power of Dewaterer Operator? No January 07, 2025 3:00pm Do you have a Healthcare Power of Dewaterer Operator? No January 26, 2025 3:01am Do you have a Healthcare Power of Dewaterer Operator? Yes February 18, 2025 8:56pm Advance Directives Yes Tianna 4th, 20 22 8:47am Advance Directive Response Recorded Date/ Time Do you have a Healthcare Power of Dewaterer Operator? No January 15, 2025 2:24pm Do you have a Healthcare Power of Dewaterer Operator? No January 20, 2025 4:39am Do you have a Healthcare Power of Dewaterer Operator? Yes February 04, 2025 12:35pm Name of Medical Power of Dewaterer Operator February 04, 2025 6:32am Do you have a Healthcare Power of Dewaterer Operator? Yes February 09, 2025 4:43pm Name of Medical Power of Dewaterer Operator [email or web address] lees February 09, 2025 4:43pm Do you have a Healthcare Power of Dewaterer Operator? Yes February 15, 2025 3:20pm Do you have a Healthcare Power of Dewaterer Operator? No January 07, 2025 3:00pm Do you have a Healthcare Power of Dewaterer Operator? No January 26, 2025 3:01am Do you have a Healthcare Power of Dewaterer Operator? Yes February 18, 2025 8:56pm Do you have a Healthcare Power of Dewaterer Operator? Yes March 04, 2025 6:52pm Advance Directives Yes December 02 8:47am Advance Directive Response Recorded Date/ Time Do you have a Healthcare Power of Dewaterer Operator? No January 15, 2025 2:24pm Do you have a Healthcare Power of Dewaterer Operator? No January 20, 2025 4:39am Do you have a Healthcare Power of Dewaterer Operator? Yes February 04, 2025 12:35pm Name of Medical Power of Dewaterer Operator February 04, 2025 6:32am Do you have a Healthcare Power of Dewaterer Operator? Yes February 09, 2025 4:43pm Name of Medical Power of Dewaterer Operator ursula lees February 09, 2025 4:43pm Do you have a Healthcare Power of Dewaterer Operator? Yes February 15, 2025 3:20pm Do you have a Healthcare Power of Dewaterer Operator? No January 07, 2025 3:00pm Do you have a Healthcare Power of Dewaterer Operator? No January 26, 2025 3:01am Do you have a Healthcare Power of Dewaterer Operator? Yes February 18, 2025 8:56pm Do you have a Healthcare Power of Dewaterer Operator? Yes March 04, 2025 6:52pm Do you have a Healthcare Power of Dewaterer Operator? No March 21, 2025 1:31pm Advance Directives Yes December 02 8:47am Advance Directive Response Recorded Date/ Time Do you have a Healthcare Power of Dewaterer Operator? No January 15, 2025 2:24pm Do you have a Healthcare Power of Dewaterer Operator? No January 20, 2025 4:39am Do you have a Healthcare Power of Dewaterer Operator? Yes February 04, 2025 12:35pm Name of Medical Power of Dewaterer Operator February 04, 2025 6:32am Do you have a Healthcare Power of Dewaterer Operator? Yes February 09, 2025 4:43pm Name of Medical Power of Dewaterer Operator [email or web address] lees jr February 09, 2025 4:43pm Do you have a Healthcare Power of Dewaterer Operator? Yes February 15, 2025 3:20pm Do you have a Healthcare Power of Dewaterer Operator? No January 07, 2025 3:00pm Do you have a Healthcare Power of Dewaterer Operator? No January 26, 2025 3:01am Do you have a Healthcare Power of Dewaterer Operator? Yes February 18, 2025 8:56pm Do you have a Healthcare Power of Dewaterer Operator? Yes March 04, 2025 6:52pm Do you have a Healthcare Power of Dewaterer Operator? Yes March 22, 2025 12:37am Name of Medical Power of Dewaterer Operator [email or web address] [email or web address] March 22, 2025 12:37am Advance [...] sob January 26, 2025 3:00a m S/P [facility] 01/24 (PCU) January 31, 2025 1:42p [...] sob January 26, 2025 3:00a m S/P [facility] 01/24 (PCU) January 31, 2025 1:42p [...] sob January 26, 2025 3:00a m S/P [facility] 01/24 (PCU) January 31, 2025 1:42p [...] sob January 26, 2025 3:00a m S/P [facility] 01/24 (U) January 31, 2025 1:42p [...] sob January 26, 2025 3:00a m S/P [facility] 01/24 (PCU) January 31, 2025 1:42p [...] sob January 26, 2025 3:00a m S/P [facility] 01/24 (PCU) January 31, 2025 1:42p [...] sob January 26, 2025 3:00a m S/P [facility] 01/24 (PCU) January 31, 2025 1:42p [...] sob January 26, 2025 3:00a m S/P [facility] 01/24 (PCU) January 31, 2025 1:42p [...] sob January 26, 2025 3:00a m S/P [facility] 01/24 ([facility]) January 31, 2025 1:42p m HYPOXIA, EXACERBATION [...] sob January 26, 2025 3:00a m S/P [facility] 01/24 (U) January 31, 2025 1:42p [...] sob January 26, 2025 3:00a m S/P [facility] 01/24 (PCU) January 31, 2025 1:42p [...] sob January 26, 2025 3:00a m S/P [facility] 01/24 (U) January 31, 2025 1:42p [...] sob January 26, 2025 3:00a m S/P [facility] 01/24 ([facility]) January 31, 2025 1:42p m HYPOXIA, EXACERBATION [...] section and content) DATE CREATED AUTHOR 02/25/2018 [facility] DATE CREATED AUTHOR AUTHOR'S ORGANIZ ATION 05/08/2022 [facility] DATE CREATED AUTHOR AUTHOR'S ORGANIZ ATION 04/01/2025 [facility] Goals (unrecognized section and content) Goals may [...] or prosecute any alcohol or drug abuse patient.[facility] the event this information is protected by the Federal Confidentiality of Alcohol and Drug Abuse Patient Records regulations: The Federal rules restrict any use of the information to criminally investigate or prosecute any alcohol or drug abuse patient.[facility] the event this information is protected by the Federal Confidentiality of Alcohol and Drug Abuse Patient Records regulations: The Federal rules restrict any use of the information to criminally investigate or prosecute any alcohol or drug abuse patient.[facility] the event this information is protected by the Federal Confidentiality of Alcohol and Drug Abuse Patient Records regulations: The Federal rules restrict any use of the information to criminally investigate or prosecute any alcohol or drug abuse patient.[facility] the event this information is protected by the Federal Confidentiality of Alcohol and Drug Abuse Patient Records regulations: The Federal rules restrict any use of the information to criminally investigate or prosecute any alcohol or drug abuse patient.[facility] Care Teams (unrecognized sec tion and content) [...] January 26, 2025 End: January 26, 2025 Track Vehicle Repairer Relationship Specialty Start Date End Date Ramone Smiley MD PCP - General Family Practice 08/16/15 Track Vehicle Repairer Relationship Specialty Start Date End Date Ramone Smiley MD PCP - General Family Practice 08/16/15 Track Vehicle Repairer Relationship Specialty Start Date End Date Ramone Smiley MD PCP - General Family Practice 08/16/15 Track Vehicle Repairer Relationship Specialty Start Date End Date Ramone Smiley MD PCP - General Family Practice 08/16/15 Track Vehicle Repairer Relationship Specialty Start Date End Date Ramone [...] Ramone Smiley MD Primary Care Provider, Attending [facility] Active Team Status: Active Member Role [...] End: January 31, 2025 Whitney Cao NP, FLATTENING MACHINE OPERATOR-C Attending Provider Active Start: January 31, 2025 [...] 2025 End: January 31, 2025 Whitney Cao FLATTENING MACHINE OPERATOR, FLATTENING MACHINE OPERATOR-C Attending Provider Active Start: January 31, 2025 [...] Active Start: March 07, 2025 Whitney Cao FLATTENING MACHINE OPERATOR, FLATTENING MACHINE OPERATOR-C Attending Provider Active Start: March 07, 2025 Whitney Cao FLATTENING MACHINE OPERATOR, FLATTENING MACHINE OPERATOR-C Referring Provider Active Start: March 07, 2025 [...] 2025 End: March 07, 2025 Whitney Cao FLATTENING MACHINE OPERATOR, FLATTENING MACHINE OPERATOR-C Attending Provider Active Start: March 07, 2025 End: March 07, 2025 Whitney Cao FLATTENING MACHINE OPERATOR, FLATTENING MACHINE OPERATOR-C Referring Provider Active Start: March 07, 2025 End: March 07, 2025 Team Status: Active Member Role/Relationship Status Dates Dr. Ramone Smiley MD Primary Care Provider Active Start: March 07, 2025 Whitney Cao FLATTENING MACHINE OPERATOR, FLATTENING MACHINE OPERATOR-C Referring Provider Active Start: March 07, 2025 Whitney Cao FLATTENING MACHINE OPERATOR, FLATTENING MACHINE OPERATOR-C Other Provider Active Sta rt: March 07, 2025 Dr. Se Good MD Attending Provider Active S tart: March 07, 2025 Team Status: Active Member Role/Relationship Status Dates Dr. Ramone Smiley MD Primary Care Provider Active Start: March 09, 2025 Whitney Cao FLATTENING MACHINE OPERATOR, FLATTENING MACHINE OPERATOR-C Attending Provider Active Start: March 09, 2025 [...] 2025 End: January 31, 2025 Whitney Cao FLATTENING MACHINE OPERATOR, FLATTENING MACHINE OPERATOR-C Attending Provider Active Start: January 31, 2025 [...] Status: Inactive Member Role/Relationship Status Dates Dr. Ramnoe Smiley [...] BE BASED ON THE PRIMARY CLINICAL RECORDS. [employer] [facility]. provides no warranty or guarantee of the accuracy or completeness of information in this document.
--- OUTSIDE RECORDS SUMMARY | 2025-04-02 04:37 | XMS RPT_ITS | CCD ---
Author Organization [facility] Care Team Providers Care Painter Drum Name Role Phone Zuleika Heaton Unavailable Unavailable [...] Provider Dr. Ramone Smiley Primary Care Provider [phone] Dr. Ramone Smiley Referring Provider DAVY Pcek Attending Provider Dr. Robert Allison Emergency Provider [...] LEARY, Dr. Melba Gayle Other Provider [phone] Herrera LEARY, Dr. Hudson Attending Provider Baljit LEARY, Dr. Pack Primary Care Provider Baljit LEARY, Dr. Pack Attending Provider Baljit LEARY, Dr. Pack Referring Provider Irvin RAYMUNDO, Dr. Gregorio Emergency Provider Irvin RAYMUNDO, Dr. Gregorio Attending Provider Nash MARKETING SUMMER INTERN-C, Whitney Attending Provider Leydi LEARY, Dr. Rocha [...] Kristin LEARY, Dr. Abigail Awad Admit Provider [phone] Kristin LEARY, Dr. Abigail Awad Attending Provider Silvio LEARY, Dr. Barry Attending Provider Kristin LEARY, Dr. Abigail Awad Other Provider Smiley, Ramone Primary Care Unavailable Lucio Borden Admitting Unavailable TerLucio doherty Consulting Unavailable Lucio Borden Attending Unavailable Nash MARKETING SUMMER INTERN, Whitney Attending Unavailable Nash MARKETING SUMMER INTERN, Whitney Referring Unavailable Smiley, Ramone Primary Care Unavailable Smiley, Ramone Referring Unavailable Smiley, Ramone Primary Care Unavailable Nash MARKETING SUMMER INTERN, Whitney Attending Unavailable Abigail Foster Admitting Unavailable [...] Unavailable Smiley, Ramone Primary Care Unavailable Nash MARKETING SUMMER INTERN, Whitney Consulting Unavailable Nash MARKETING SUMMER INTERN, Whitney Referring Unavailable Se Good Attending Unavailable Smiley, Ramone Primary Care Unavailable Nash JEAN, Whitney Attending Unavailable Smiley, Ramone Primary Care Unavailable Sandeep Carlton Attending Unavailable Becca Silverman Attending Unavailable Allergies Allergy Classification Reported Allergen(s) Allergy Type Date of Onset Reaction(s) Facility (20 sources) Adhesive Tape; Translations: [ADHESIVE TAPE] allergy to substance 5 NEEDS FOLLOW-UP [facility] Work Phone: Comment on above: CLOTH TAPE (20 sources) amoxicillin; Translations: [amoxicillin] drug allergy 5 yeast infection [facility] Work Phone: (2 sources) cephalexin drug allergy 5 [facility] Work Phone: (2 sources) clopidogrel drug allergy 5 [facility] Work Phone: (20 sources) Cephalexin; Translations: [cephalexin monohydrate] Drug Allergy 2 [facility] (20 sources) clopidogrel; Translations: [clopidogrel bisulfate] Drug Allergy 1 Hives [facility] Work Phone: (2 sources) cloth tap Allergy to substance 2 Other [facility] Work Phone: (5 sources) Cephalexin Drug Allergy 5 [facility] Work Phone: (5 sources) tape [Other] Propensity to adverse reactions 5 [facility] (1 source) oxyCODONE Drug Allergy 5 [facility] (1 source) oxyCODONE Drug Allergy 5 [facility] Repository Medications Current Medications Medication Drug [...] 19, 2018 1:00am October 26, 2018 1:09am [id number] 200 actuat albuter ol 0.09 mg/actuat metered [...] AERS As needed - 90mcg/inh ALBUTEROL SULFATE [id number] Se Good MD Start: 08-29-2015 VENTOLIN HFA 1 08 (90 Base) MCG/ACT AERS As needed - 90mcg/inh ALBUTEROL SULFATE [id number] Se Good MD Start: 12-25-2014 End: 01-12-2018 [...] TABS One tablet by mouth daily ASPIRIN [id number] Kadie Álvarez RN Start: 08-23-2015 take 1 tablet by martin th once daily ASPIRIN 81 MG TABS One tablet by mouth daily ASPIRIN [id number] Kadie Álvarez RN take 1 tablet by [...] in each nostril twice daily AZELASTINE HCL [id number] Kadie Álvarez RN Start: 08-23-2015 take 1-2 spray(s) na deepali route twice daily ASTEPRO 0.15 % SOLN 1-2 sprays in each nostril twice daily AZELASTINE HCL [id number] Kadie Álvarez RN take 1-2 spray(s) na [...] MCG/ACT AERO 2 puffs daily BUDESONIDE-FORMOTEROL FUMARATE 15019639575 Kadie Álvarez RN Start: 08-23-2015 SYMBICORT 160- 4.5 MCG/ACT AERO 2 puffs daily BUDESONIDE-FORMOTEROL FUMARATE 09732060965 Kadie Álvarez RN take 1 puff(s) by in halation twice daily budesonide-formoterol (SYMBICORT) 160-4.5 mcg/actuation inhaler Indications: Other iron deficiency anemia Inhale 1 Puff as instructed twice daily. 0 Active Comment on above: Inhale 1 Puff as ins tructed twice daily. Wexzklkxgn-Zeglsfvi-Zxhcetax ol (19 sources) Corticosteroid, beta2-Adrenergic Agonist Start: [...] POWD 3 times daily with water PSYLLIUM [id number] Kadie Álvarez RN Roflumilast (20 sources) Phosphodiesterase [...] EVERY WEEK January 15, 2025 12:00am Vitamin N-Zrkqleaswgwz-Hegt ral (15 sources) Start: 12-02-2019 take 250 mg by mouth once daily Vitamin S-Bozxooyeyhkp-Lwc eral Active 250 MG PO DAILY December 02, 2019 11:46am Start: 12-02-2019 End: 07-18-2023 take 250 mg by mouth once daily Vitamin R-Equsifuxhywq-Fpgaxbo Discontinued 250 MG PO DAILY December 02, 2019 12:00am July 19, 2023 12:34am Start: 12-02-2019 End: 07-18-2023 take 250 mg by mouth once daily Vitamin M-Touhcqtsksbh-Oxtxeya Discontinued 250 MG PO DAILY December 01, 2019 11:00pm July 18, 2023 11:34pm Start: 12-02-2019 take 250 mg by mouth once daily Vitamin B-Mlfpylntfmdg-Otthssn Active 25 0 MG PO DAILY December 01, 2019 11:00pm Start: 12-02-2019 take 250 mg by mouth once daily Vitamin I-Tuknvwzklpkc-Lgcrizv Active 25 0 MG PO DAILY December [...] One tablet by mouth daily AMLODIPINE BESYLATE [id number] Se Good MD apixaban 5 mg oral [...] lower legs 1-2 times daily BETAMETHASONE DIPROPIONATE 14314921099 Kadie Álvarez RN Start: 08-23-2015 BETAMETHASONE DIPROPIONATE 0.05 % LOTN apply to lower legs 1-2 times daily BETAMETHASONE DIPROPIONATE 07105702593 Kadie Álvarez RN bisacodyl 10 mg rectal suppo sitory (20 sources) Stimulant Laxative Start: 12-30-2023 End: 01-15-2024 Start: 08-23-2015 take 1 tablet by martin th once daily as needed BISACODYL EC 5 MG TBEC One tablet by mouth daily as needed BISACODYL 50612576206 Kadie Álvarez RN calcium carbonate (2 sources) Start: 08-23-2015 take 1 tablet by mouth once daily CALCIUM 600 600 MG TABS One tablet by mouth daily CALCIUM CARBONATE 47175976956 Kadie Álvarez RN Calcium Carbonate / vitamin D3 (5 sources) take 1 tablet by mouth once daily CALCIUM CARBONATE/VITAMIN D3 (CALCIUM 600 + D,3, ORAL) Indications: Other iron deficiency anemia Take 1 tablet by mouth once daily. 0 Active Comment on above: Take 1 tablet by [facility] once daily. chlorpheniramine maleate 4 mg oral tablet (2 sources) Histamine-1 Receptor Antagonist Start: 08-29-2015 CHLORPHENIRAMINE MALEATE 4 MG TABS As needed CHLORPHENIRAMINE MALEATE 68155310436 Se Good MD cholecalciferol 0.025 mg oral [...] by mouth daily COD LIVER OIL CAPS 30506454312 Kadie Álvarez RN take 1 capsule by mouth once neftaly ly Cod Liver Oil cap Indications: Other iron deficiency anemia Take 1 capsule by mouth once daily. 0 Active Comment on above: Take 1 capsule by mo [facility] once daily. Cod Liver Oil capsule [...] Start: 01-07-2025 take 1 capsule by mo [facility] every twenty-four hours Diltiazem Hcl 180 mg capsule,ext.rel 24h degradable Active mg PO January 07, 2025 12:00am Start: 08-16-2018 End: 01-07-2025 Start: 08-29-2015 take 1 tablet by martin th once daily DILT-XR 180 MG [id number] One tablet by mouth daily DILTIAZEM HCL 95858977652 Se Good MD Start: 08-29-2015 take 1 tablet by martin th once daily DILT-XR 180 MG [id number] One tablet by mouth daily DILTIAZEM HCL 23515334988 Se Good MD Comment on above: Take 180 mg by mouth once daily. docusate sodium 50 mg / sennosides, mcc [...] units SQ daily at bedtime INSULIN DETEMIR [id number] Mariana Finley RN Start: 08-23-2015 inject 28 [IU] by avila bcutaneous injection once daily LEVEMIR 100 UNIT/ML SOLN 28 units SQ daily INSULIN DETEMIR [id number] Kadie Álvarez RN Start: 08-23-2015 take 15 [IU] by subc utaneous injection once daily at bedtime LEVEMIR 100 UNIT/ML SOLN 15 units SQ daily at bedtime INSULIN DETEMIR 40348902733 Mariana Finley RN Start: 08-23-2015 take 28 [IU] by subc utaneous injection once daily LEVEMIR 100 UNIT/ML SOLN 28 units SQ daily INSULIN DETEMIR [id number] Kadie Álvarez RN inject 52 [IU] by [...] CAPS One tablet by mouth daily LINACLOTIDE 45020978845 Kadie Álvarez RN Start: 08-23-2015 take 1 tablet by martin th once daily LINZESS 290 MCG CAPS One tablet by mouth daily LINACLOTIDE 45726614527 Kadie Álvarez RN lisinopril 40 mg oral [...] One tablet by mouth daily MAGNESIUM CAPS 04841568745 Kadie Álvarez RN metFORMIN hydrochloride 1000 mg oral tablet (2 sources) Biguanide take 1 tablet by mouth twice daily GLUCOPHAGE 1000 MG TABS One tablet by mouth twice daily METFORMIN HCL 38880346693 Julita Chau NP metFORMIN hydrochloride 1000 mg / SITagliptin 50 mg oral tablet (4 sources) Biguanide, Dipeptidyl Peptidase 4 Inhibitor Start: 5 End: 5 take 1 tablet by mouth twice daily JANUMET 50-1000 MG TABS One tablet by mouth twice daily SITAGLIPTIN-METFORMI N HCL 98777491502 Se Good MD Start: 08-23-2015 End: 08-29-2015 take 1 tablet by mouth twice daily JANUMET 50-1000 MG TABS One tablet by mouth twice daily SITAGLIPTIN-METFORMIN HCL 27136146776 Se Good MD Start: 08-23-2015 take 1 tablet by martin th twice daily JANUMET 50-1000 MG TABS One tablet by mouth twice daily SITAGLIPTIN-METFORMIN HCL 93815988387 Kadie Álvarez RN miSOPROStol 0.2 mg oral [...] three times daily as needed PROMETHAZINE HCL 73819331843 Kadie Álvarez RN PSYLLIUM HUSK, BULK, MISC [...] One tablet by mouth daily RANITIDINE HCL 57036462507 Kadie Álvarez RN Comment on above: Take [...] MIST) 0.65 % nasal spray Use 1 [place] in the nose as needed. 0 Active Comment on above: Use 1 [place] in the n ose as needed. sucralfate [...] End: 10-18-2020 Start: 01-24-2020 End: 10-18-2020 Tiotropium Roma (Spiriva With Handihaler) 18 mcg capsule, w/inhalation device Discontinued 1 NMA INHALATION NEEDED as needed for Sob &/Or Wheezing January 24, 2020 12:00am October 18, 2020 9:28am puncture 1 cap using device; one dose = 2 inhalations Start: 01-24-2020 End: 10-18-2020 Tiotropium Roma (Spiriva With Handihaler) 18 mcg capsule, w/inhalation device Discontinued 1 PUFF INHALATION NEEDED January 24, 2020 12:00am October 18, 2020 9:28am puncture 1 cap using device; one dose = 2 inhalations Start: 08-23-2015 SPIRIVA HANDIH ALER 18 MCG CAPS as needed TIOTROPIUM BROMIDE MONOHYDRATE 50579376149 Kadie Álvarez RN Start: 08-23-2015 SPIRIVA HANDIH ALER 18 MCG CAPS as needed TIOTROPIUM BROMIDE MONOHYDRATE 98332310212 Kadie Álvarez RN Start: 12-25-2014 End: 01-12-2018 [...] sources) Corticosteroid Start: 01-07-2025 End: 01-15-2025 Vitamin L-Lwdcvtcornfh-Weavudk 500 MG tablet,chewable (2 sources) Start: 12-02-2019 End: 07-18-2023 Vitamin R-Bifydldfxfbg-Xxccqoe 500 MG tablet,chewable Discontinued 250 mg PO [...] Coronary arteriosclerosis; Translations: [Atherosclerotic heart disease of [place] coronary artery without angina pectoris] Onset: 5 [...] Respiratory failure; insufficiency; arrest (adult) (20 sources) Mptrd-ye-emlpfdt respiratory failure; Translations: [Acute respiratory failure with [...] Profile (BMP )on 03-30-2025 BUN Normal 4-19 [facility] Comment on above: Result Comment: Canc elled via OM: Order cancelled - Patient discharged Performed By: #### L 100.0100, L500.2500 ####[facility] [address] [place], [address] BUN/CRE Normal 10-20 [facility] Comment on above: Result Comment: Canc elled via OM: Order cancelled - Patient discharged Performed By: #### L 100.0100, L500.2500 ####[facility] [address] [place], [address] Calcium Normal 7.6-11.0 [facility] Comment on above: Result Comment: Canc elled via OM: Order cancelled - Patient discharged Performed By: #### L 100.0100, L500.2500 ####[facility] [address] [place], [address] CL Normal 98-108 [facility] Comment on above: Result Comment: Canc elled via OM: Order cancelled - Patient discharged Performed By: #### L 100.0100, L500.2500 ####[facility] [address] [place], [address] CO2 Normal 21.0-32.0 [facility] Comment on above: Result Comment: Canc elled via OM: Order cancelled - Patient discharged Performed By: #### L 100.0100, L500.2500 ####[facility] [address] [place], [address] CREAT,SERUM Normal 0.70-1.20 [facility] Comment on above: Result Comment: Canc elled via OM: Order cancelled - Patient discharged Performed By: #### L 100.0100, L500.2500 ####[facility] [address] [place], [address] eGFR Normal >60 [facility] Comment on above: Result Comment: Canc elled via OM: Order cancelled - Patient discharged Performed By: #### L 100.0100, L500.2500 ####[facility] [address] [place], [address] GAP Normal 5-15 [facility] Comment on above: Result Comment: Canc elled via OM: Order cancelled - Patient discharged Performed By: #### L 100.0100, L500.2500 ####[facility] [address] [place], [address] GLU Normal 70-99 [facility] Comment on above: Result Comment: Canc elled via OM: Order cancelled - Patient discharged Performed By: #### L 100.0100, L500.2500 ####[facility] [address] [place], [address] Potassium Normal 3.3-5.1 [facility] Comment on above: Result Comment: Canc elled via OM: Order cancelled - Patient discharged Performed By: #### L 100.0100, L500.2500 ####[facility] [address] [place], [address] Basic Metabolic Profile (BMP) Normal 133-145 [facility] Comment on above: Result Comment: Canc elled via OM: Order cancelled - Patient discharged Performed By: #### L 100.0100, L500.2500 ####[facility] [address] [place], [address] CBC W/Diff, Automatedon 07-3 Absolute Neut Normal 2.0-7.7 [facility] Comment on above: Result Comment: Canc elled via OM: Order cancelled - Patient discharged Performed By: #### L 100.0100, L500.2500 ####[facility] [address] [place], [address] HCT Normal 37-47 [facility] Comment on above: Result Comment: Canc elled via OM: Order cancelled - Patient discharged Performed By: #### L 100.0100, L500.2500 ####[facility] [address] [place], [address] HGB Normal 12.0-15.0 [facility] Comment on above: Result Comment: Canc elled via OM: Order cancelled - Patient discharged Performed By: #### L 100.0100, L500.2500 ####[facility] [address] [place], [address] MCH Normal 27.0-32.0 [facility] Comment on above: Result Comment: Canc elled via OM: Order cancelled - Patient discharged Performed By: #### L 100.0100, L500.2500 ####[facility] [address] [place], [address] MCHC Normal 32-36 [facility] Comment on above: Result Comment: Canc elled via OM: Order cancelled - Patient discharged Performed By: #### L 100.0100, L500.2500 ####[facility] [address] [place], [address] MCV Normal 81-99 [facility] Comment on above: Result Comment: Canc elled via OM: Order cancelled - Patient discharged Performed By: #### L 100.0100, L500.2500 ####[facility] [address] [place], [address] NEUT% Normal 47-70 [facility] Comment on above: Result Comment: Canc elled via OM: Order cancelled - Patient discharged Performed By: #### L 100.0100, L500.2500 ####[facility] [address] [place], [address] PLT Normal 150-450 [facility] Comment on above: Result Comment: Canc elled via OM: Order cancelled - Patient discharged Performed By: #### L 100.0100, L500.2500 ####[facility] [address] [place], [address] RBC Normal 4.2-5.4 [facility] Comment on above: Result Comment: Canc elled via OM: Order cancelled - Patient discharged Performed By: #### L 100.0100, L500.2500 ####[facility] [address] [place], [address] RDW CV Normal 11.6-14.6 [facility] Comment on above: Result Comment: Canc elled via OM: Order cancelled - Patient discharged Performed By: #### L 100.0100, L500.2500 ####[facility] [address] [place], [address] RDW SD Normal 35.1-43.9 [facility] Comment on above: Result Comment: Canc elled via OM: Order cancelled - Patient discharged Performed By: #### L 100.0100, L500.2500 ####[facility] [address] [place], [address] WBC Normal 4.4-11.0 [facility] Comment on above: Result Comment: Canc elled via OM: Order cancelled - Patient discharged Performed By: #### L 100.0100, L500.2500 ####[facility] [address] [place], [address] Basic Metabolic Profile (BMP )on 03-29-2025 BUN Normal 4-19 [facility] Comment on above: Result Comment: Canc elled via OM: Order cancelled - Patient discharged Performed By: #### L 500.2500, L100.0100 ####[facility] [address] [place], [address] BUN/CRE Normal 10-20 [facility] Comment on above: Result Comment: Canc elled via OM: Order cancelled - Patient discharged Performed By: #### L 500.2500, L100.0100 ####[facility] [address] [place], [address] Calcium Normal 7.6-11.0 [facility] Comment on above: Result Comment: Canc elled via OM: Order cancelled - Patient discharged Performed By: #### L 500.2500, L100.0100 ####[facility] [address] [place], [address] CL Normal 98-108 [facility] Comment on above: Result Comment: Canc elled via OM: Order cancelled - Patient discharged Performed By: #### L 500.2500, L100.0100 ####[facility] [address] [place], [address] CO2 Normal 21.0-32.0 [facility] Comment on above: Result Comment: Canc elled via OM: Order cancelled - Patient discharged Performed By: #### L 500.2500, L100.0100 ####[facility] [address] [place], [address] CREAT,SERUM Normal 0.70-1.20 [facility] Comment on above: Result Comment: Canc elled via OM: Order cancelled - Patient discharged Performed By: #### L 500.2500, L100.0100 ####[facility] [address] [place], [address] eGFR Normal >60 [facility] Comment on above: Result Comment: Canc elled via OM: Order cancelled - Patient discharged Performed By: #### L 500.2500, L100.0100 ####[facility] [address] [place], [address] GAP Normal 5-15 [facility] Comment on above: Result Comment: Canc elled via OM: Order cancelled - Patient discharged Performed By: #### L 500.2500, L100.0100 ####[facility] [address] [place], [address] GLU Normal 70-99 [facility] Comment on above: Result Comment: Canc elled via OM: Order cancelled - Patient discharged Performed By: #### L 500.2500, L100.0100 ####[facility] [address] [place], [address] Potassium Normal 3.3-5.1 [facility] Comment on above: Result Comment: Canc elled via OM: Order cancelled - Patient discharged Performed By: #### L 500.2500, L100.0100 ####[facility] [address] [place], [address] Basic Metabolic Profile (BMP) Normal 133-145 [facility] Comment on above: Result Comment: Canc elled via OM: Order cancelled - Patient discharged Performed By: #### L 500.2500, L100.0100 ####[facility] [address] [place], [address] CBC W/Diff, Automatedon 07-3 0-2024 Absolute Neut Normal 2.0-7.7 [facility] Comment on above: Result Comment: Canc elled via OM: Order cancelled - Patient discharged Performed By: #### L 500.2500, L100.0100 ####[facility] [address] [place], [address] HCT Normal 37-47 [facility] Comment on above: Result Comment: Canc elled via OM: Order cancelled - Patient discharged Performed By: #### L 500.2500, L100.0100 ####[facility] [address] [place], [address] HGB Normal 12.0-15.0 [facility] Comment on above: Result Comment: Canc elled via OM: Order cancelled - Patient discharged Performed By: #### L 500.2500, L100.0100 ####[facility] [address] [place], [address] MCH Normal 27.0-32.0 [facility] Comment on above: Result Comment: Canc elled via OM: Order cancelled - Patient discharged Performed By: #### L 500.2500, L100.0100 ####[facility] [address] [place], [address] MCHC Normal 32-36 [facility] Comment on above: Result Comment: Canc elled via OM: Order cancelled - Patient discharged Performed By: #### L 500.2500, L100.0100 ####[facility] [address] [place], [address] MCV Normal 81-99 [facility] Comment on above: Result Comment: Canc elled via OM: Order cancelled - Patient discharged Performed By: #### L 500.2500, L100.0100 ####[facility] [address] [place], [address] NEUT% Normal 47-70 [facility] Comment on above: Result Comment: Canc elled via OM: Order cancelled - Patient discharged Performed By: #### L 500.2500, L100.0100 ####[facility] [address] [place], [address] PLT Normal 150-450 [facility] Comment on above: Result Comment: Canc elled via OM: Order cancelled - Patient discharged Performed By: #### L 500.2500, L100.0100 ####[facility] [address] [place], [address] RBC Normal 4.2-5.4 [facility] Comment on above: Result Comment: Canc elled via OM: Order cancelled - Patient discharged Performed By: #### L 500.2500, L100.0100 ####[facility] [address] [place], [address] RDW CV Normal 11.6-14.6 [facility] Comment on above: Result Comment: Canc elled via OM: Order cancelled - Patient discharged Performed By: #### L 500.2500, L100.0100 ####[facility] [address] [place], [address] RDW SD Normal 35.1-43.9 [facility] Comment on above: Result Comment: Canc elled via OM: Order cancelled - Patient discharged Performed By: #### L 500.2500, L100.0100 ####[facility] [address] [place], [address] WBC Normal 4.4-11.0 [facility] Comment on above: Result Comment: Canc elled via OM: Order cancelled - Patient discharged Performed By: #### L 500.2500, L100.0100 ####[facility] [address] [place], [address] Basic Metabolic Profile (BMP )on 03-28-2025 BUN Normal 4-19 [facility] Comment on above: Result Comment: Canc elled via OM: Order cancelled - Patient discharged Performed By: #### L 100.0100, L500.2500 ####[facility] [address] [place], [address] BUN/CRE Normal 10-20 [facility] Comment on above: Result Comment: Canc elled via OM: Order cancelled - Patient discharged Performed By: #### L 100.0100, L500.2500 ####[facility] [address] [place], [address] Calcium Normal 7.6-11.0 [facility] Comment on above: Result Comment: Canc elled via OM: Order cancelled - Patient discharged Performed By: #### L 100.0100, L500.2500 ####[facility] [address] [place], [address] CL Normal 98-108 [facility] Comment on above: Result Comment: Canc elled via OM: Order cancelled - Patient discharged Performed By: #### L 100.0100, L500.2500 ####[facility] [address] [place], [address] CO2 Normal 21.0-32.0 [facility] Comment on above: Result Comment: Canc elled via OM: Order cancelled - Patient discharged Performed By: #### L 100.0100, L500.2500 ####[facility] [address] [place], [address] CREAT,SERUM Normal 0.70-1.20 [facility] Comment on above: Result Comment: Canc elled via OM: Order cancelled - Patient discharged Performed By: #### L 100.0100, L500.2500 ####[facility] [address] [place], [address] eGFR Normal >60 [facility] Comment on above: Result Comment: Canc elled via OM: Order cancelled - Patient discharged Performed By: #### L 100.0100, L500.2500 ####[facility] [address] [place], [address] GAP Normal 5-15 [facility] Comment on above: Result Comment: Canc elled via OM: Order cancelled - Patient discharged Performed By: #### L 100.0100, L500.2500 ####[facility] [address] [place], [address] GLU Normal 70-99 [facility] Comment on above: Result Comment: Canc elled via OM: Order cancelled - Patient discharged Performed By: #### L 100.0100, L500.2500 ####[facility] [address] [place], [address] Potassium Normal 3.3-5.1 [facility] Comment on above: Result Comment: Canc elled via OM: Order cancelled - Patient discharged Performed By: #### L 100.0100, L500.2500 ####[facility] [address] [place], [address] Basic Metabolic Profile (BMP) Normal 133-145 [facility] Comment on above: Result Comment: Canc elled via OM: Order cancelled - Patient discharged Performed By: #### L 100.0100, L500.2500 ####[facility] [address] [place], [address] CBC W/Diff, Automatedon 07-2 Absolute Neut Normal 2.0-7.7 [facility] Comment on above: Result Comment: Canc elled via OM: Order cancelled - Patient discharged Performed By: #### L 100.0100, L500.2500 ####[facility] [address] [place], [address] HCT Normal 37-47 [facility] Comment on above: Result Comment: Canc elled via OM: Order cancelled - Patient discharged Performed By: #### L 100.0100, L500.2500 ####[facility] [address] [place], [address] HGB Normal 12.0-15.0 [facility] Comment on above: Result Comment: Canc elled via OM: Order cancelled - Patient discharged Performed By: #### L 100.0100, L500.2500 ####[facility] [address] [place], [address] MCH Normal 27.0-32.0 [facility] Comment on above: Result Comment: Canc elled via OM: Order cancelled - Patient discharged Performed By: #### L 100.0100, L500.2500 ####[facility] [address] [place], [address] MCHC Normal 32-36 [facility] Comment on above: Result Comment: Canc elled via OM: Order cancelled - Patient discharged Performed By: #### L 100.0100, L500.2500 ####[facility] [address] [place], [address] MCV Normal 81-99 [facility] Comment on above: Result Comment: Canc elled via OM: Order cancelled - Patient discharged Performed By: #### L 100.0100, L500.2500 ####[facility] [address] [place], [address] NEUT% Normal 47-70 [facility] Comment on above: Result Comment: Canc elled via OM: Order cancelled - Patient discharged Performed By: #### L 100.0100, L500.2500 ####[facility] [address] [place], [address] PLT Normal 150-450 [facility] Comment on above: Result Comment: Canc elled via OM: Order cancelled - Patient discharged Performed By: #### L 100.0100, L500.2500 ####[facility] [address] [place], [address] RBC Normal 4.2-5.4 [facility] Comment on above: Result Comment: Canc elled via OM: Order cancelled - Patient discharged Performed By: #### L 100.0100, L500.2500 ####[facility] [address] [place], [address] RDW CV Normal 11.6-14.6 [facility] Comment on above: Result Comment: Canc elled via OM: Order cancelled - Patient discharged Performed By: #### L 100.0100, L500.2500 ####[facility] [address] [place], [address] RDW SD Normal 35.1-43.9 [facility] Comment on above: Result Comment: Canc elled via OM: Order cancelled - Patient discharged Performed By: #### L 100.0100, L500.2500 ####[facility] [address] [place], [address] WBC Normal 4.4-11.0 [facility] Comment on above: Result Comment: Canc elled via OM: Order cancelled - Patient discharged Performed By: #### L 100.0100, L500.2500 ####[facility] [address] [place], [address] Basic Metabolic Profile (BMP )on 03-27-2025 BUN Normal 4-19 [facility] Comment on above: Result Comment: Canc elled via OM: Order cancelled - Patient discharged Performed By: #### L 500.2500, L100.0100 ####[facility] [address] [place], [address] BUN/CRE Normal 10-20 [facility] Comment on above: Result Comment: Canc elled via OM: Order cancelled - Patient discharged Performed By: #### L 500.2500, L100.0100 ####[facility] [address] [place], [address] Calcium Normal 7.6-11.0 [facility] Comment on above: Result Comment: Canc elled via OM: Order cancelled - Patient discharged Performed By: #### L 500.2500, L100.0100 ####[facility] [address] [place], [address] CL Normal 98-108 [facility] Comment on above: Result Comment: Canc elled via OM: Order cancelled - Patient discharged Performed By: #### L 500.2500, L100.0100 ####[facility] [address] [place], [address] CO2 Normal 21.0-32.0 [facility] Comment on above: Result Comment: Canc elled via OM: Order cancelled - Patient discharged Performed By: #### L 500.2500, L100.0100 ####[facility] [address] [place], [address] CREAT,SERUM Normal 0.70-1.20 [facility] Comment on above: Result Comment: Canc elled via OM: Order cancelled - Patient discharged Performed By: #### L 500.2500, L100.0100 ####[facility] [address] [place], [address] eGFR Normal >60 [facility] Comment on above: Result Comment: Canc elled via OM: Order cancelled - Patient discharged Performed By: #### L 500.2500, L100.0100 ####[facility] [address] [place], [address] GAP Normal 5-15 [facility] Comment on above: Result Comment: Canc elled via OM: Order cancelled - Patient discharged Performed By: #### L 500.2500, L100.0100 ####[facility] [address] [place], [address] GLU Normal 70-99 [facility] Comment on above: Result Comment: Canc elled via OM: Order cancelled - Patient discharged Performed By: #### L 500.2500, L100.0100 ####[facility] [address] [place], [address] Potassium Normal 3.3-5.1 [facility] Comment on above: Result Comment: Canc elled via OM: Order cancelled - Patient discharged Performed By: #### L 500.2500, L100.0100 ####[facility] [address] [place], [address] Basic Metabolic Profile (BMP) Normal 133-145 [facility] Comment on above: Result Comment: Canc elled via OM: Order cancelled - Patient discharged Performed By: #### L 500.2500, L100.0100 ####[facility] [address] [place], [address] CBC W/Diff, Automatedon 07-2 Absolute Neut Normal 2.0-7.7 [facility] Comment on above: Result Comment: Canc elled via OM: Order cancelled - Patient discharged Performed By: #### L 500.2500, L100.0100 ####[facility] [address] [place], [address] HCT Normal 37-47 [facility] Comment on above: Result Comment: Canc elled via OM: Order cancelled - Patient discharged Performed By: #### L 500.2500, L100.0100 ####[facility] [address] [place], [address] HGB Normal 12.0-15.0 [facility] Comment on above: Result Comment: Canc elled via OM: Order cancelled - Patient discharged Performed By: #### L 500.2500, L100.0100 ####[facility] [address] [place], [address] MCH Normal 27.0-32.0 [facility] Comment on above: Result Comment: Canc elled via OM: Order cancelled - Patient discharged Performed By: #### L 500.2500, L100.0100 ####[facility] [address] [place], [address] MCHC Normal 32-36 [facility] Comment on above: Result Comment: Canc elled via OM: Order cancelled - Patient discharged Performed By: #### L 500.2500, L100.0100 ####[facility] [address] [place], [address] MCV Normal 81-99 [facility] Comment on above: Result Comment: Canc elled via OM: Order cancelled - Patient discharged Performed By: #### L 500.2500, L100.0100 ####[facility] [address] [place], [address] NEUT% Normal 47-70 [facility] Comment on above: Result Comment: Canc elled via OM: Order cancelled - Patient discharged Performed By: #### L 500.2500, L100.0100 ####[facility] [address] [place], [address] PLT Normal 150-450 [facility] Comment on above: Result Comment: Canc elled via OM: Order cancelled - Patient discharged Performed By: #### L 500.2500, L100.0100 ####[facility] [address] [place], [address] RBC Normal 4.2-5.4 [facility] Comment on above: Result Comment: Canc elled via OM: Order cancelled - Patient discharged Performed By: #### L 500.2500, L100.0100 ####[facility] [address] [place], [address] RDW CV Normal 11.6-14.6 [facility] Comment on above: Result Comment: Canc elled via OM: Order cancelled - Patient discharged Performed By: #### L 500.2500, L100.0100 ####[facility] [address] [place], [address] RDW SD Normal 35.1-43.9 [facility] Comment on above: Result Comment: Canc elled via OM: Order cancelled - Patient discharged Performed By: #### L 500.2500, L100.0100 ####[facility] [address] [place], [address] WBC Normal 4.4-11.0 [facility] Comment on above: Result Comment: Canc elled via OM: Order cancelled - Patient discharged Performed By: #### L 500.2500, L100.0100 ####[facility] [address] [place], [address] Basic Metabolic Profile (BMP )on 03-26-2025 BUN Normal 4-19 [facility] Comment on above: Result Comment: Canc elled via OM: Order cancelled - Patient discharged Performed By: #### L 500.2500, L100.0100 ####[facility] [address] [place], [address] BUN/CRE Normal 10-20 [facility] Comment on above: Result Comment: Canc elled via OM: Order cancelled - Patient discharged Performed By: #### L 500.2500, L100.0100 ####[facility] [address] [place], [address] Calcium Normal 7.6-11.0 [facility] Comment on above: Result Comment: Canc elled via OM: Order cancelled - Patient discharged Performed By: #### L 500.2500, L100.0100 ####[facility] [address] [place], [address] CL Normal 98-108 [facility] Comment on above: Result Comment: Canc elled via OM: Order cancelled - Patient discharged Performed By: #### L 500.2500, L100.0100 ####[facility] [address] [place], [address] CO2 Normal 21.0-32.0 [facility] Comment on above: Result Comment: Canc elled via OM: Order cancelled - Patient discharged Performed By: #### L 500.2500, L100.0100 ####[facility] [address] [place], [address] CREAT,SERUM Normal 0.70-1.20 [facility] Comment on above: Result Comment: Canc elled via OM: Order cancelled - Patient discharged Performed By: #### L 500.2500, L100.0100 ####[facility] [address] [place], [address] eGFR Normal >60 [facility] Comment on above: Result Comment: Canc elled via OM: Order cancelled - Patient discharged Performed By: #### L 500.2500, L100.0100 ####[facility] [address] [place], [address] GAP Normal 5-15 [facility] Comment on above: Result Comment: Canc elled via OM: Order cancelled - Patient discharged Performed By: #### L 500.2500, L100.0100 ####[facility] [address] [place], [address] GLU Normal 70-99 [facility] Comment on above: Result Comment: Canc elled via OM: Order cancelled - Patient discharged Performed By: #### L 500.2500, L100.0100 ####[facility] [address] [place], [address] Potassium Normal 3.3-5.1 [facility] Comment on above: Result Comment: Canc elled via OM: Order cancelled - Patient discharged Performed By: #### L 500.2500, L100.0100 ####[facility] [address] [place], [address] Basic Metabolic Profile (BMP) Normal 133-145 [facility] Comment on above: Result Comment: Canc elled via OM: Order cancelled - Patient discharged Performed By: #### L 500.2500, L100.0100 ####[facility] [address] [place], [address] CBC W/Diff, Automatedon 07-2 Absolute Neut Normal 2.0-7.7 [facility] Comment on above: Result Comment: Canc elled via OM: Order cancelled - Patient discharged Performed By: #### L 500.2500, L100.0100 ####[facility] [address] [place], [address] HCT Normal 37-47 [facility] Comment on above: Result Comment: Canc elled via OM: Order cancelled - Patient discharged Performed By: #### L 500.2500, L100.0100 ####[facility] [address] [place], [address] HGB Normal 12.0-15.0 [facility] Comment on above: Result Comment: Canc elled via OM: Order cancelled - Patient discharged Performed By: #### L 500.2500, L100.0100 ####[facility] [address] [place], [address] MCH Normal 27.0-32.0 [facility] Comment on above: Result Comment: Canc elled via OM: Order cancelled - Patient discharged Performed By: #### L 500.2500, L100.0100 ####[facility] [address] [place], [address] MCHC Normal 32-36 [facility] Comment on above: Result Comment: Canc elled via OM: Order cancelled - Patient discharged Performed By: #### L 500.2500, L100.0100 ####[facility] [address] [place], [address] MCV Normal 81-99 [facility] Comment on above: Result Comment: Canc elled via OM: Order cancelled - Patient discharged Performed By: #### L 500.2500, L100.0100 ####[facility] [address] [place], [address] NEUT% Normal 47-70 [facility] Comment on above: Result Comment: Canc elled via OM: Order cancelled - Patient discharged Performed By: #### L 500.2500, L100.0100 ####[facility] [address] [place], [address] PLT Normal 150-450 [facility] Comment on above: Result Comment: Canc elled via OM: Order cancelled - Patient discharged Performed By: #### L 500.2500, L100.0100 ####[facility] [address] [place], [address] RBC Normal 4.2-5.4 [facility] Comment on above: Result Comment: Canc elled via OM: Order cancelled - Patient discharged Performed By: #### L 500.2500, L100.0100 ####[facility] [address] [place], [address] RDW CV Normal 11.6-14.6 [facility] Comment on above: Result Comment: Canc elled via OM: Order cancelled - Patient discharged Performed By: #### L 500.2500, L100.0100 ####[facility] [address] [place], [address] RDW SD Normal 35.1-43.9 [facility] Comment on above: Result Comment: Canc elled via OM: Order cancelled - Patient discharged Performed By: #### L 500.2500, L100.0100 ####[facility] [address] [place], [address] WBC Normal 4.4-11.0 [facility] Comment on above: Result Comment: Canc elled via OM: Order cancelled - Patient discharged Performed By: #### L 500.2500, L100.0100 ####[facility] [address] [place], [address] Absolute lymphocyte countOrd ered By: Melba Hartmann on 03-25-2025 Lymphocytes Auto (Unsp spec) [#/Vol] 2.04 10*3/uL 0.83-4.51 [facility] Anion gap in Serum or Plasma Ordered By: Melba Hartmann on 03-25-2025 Anion gap [Moles/Vol] 12 mmol/L 5-15 [facility] Automated lymphocyte count a s percentage of total leukocytesOrdered By: Melba Hartmann on 03-25-2025 Lymphocytes/100 WBC Auto (Unsp spec) 26.3 % 19-41 [facility] BUN/creatinine ratioOrdered By: Melba Hartmann on 03-25-2025 Urea nitrogen/Creatinine [Mass ratio] 22.1 mg/mg High - [facility] Basic Metabolic Profile (BMP )on 03-25-2025 BUN/CRE 22.1 RATIO High - [facility] Comment on above: Performed By: #### L 500.2500, L100.0100 ####[facility] [address] [place], [address] Calcium [Mass/Vol] 10.6 mg/dL Normal 7.6-11.0 [facility] Comment on above: Performed By: #### L 500.2500, L100.0100 ####[facility] [address] [place], [address] Chloride [Moles/Vol] 101 mmol/L Normal 98-108 [facility] Comment on above: Performed By: #### L 500.2500, L100.0100 ####[facility] [address] [place], [address] CO2 [Moles/Vol] 26.0 mmol/L Normal 21.0-32.0 [facility] Comment on above: Performed By: #### L 500.2500, L100.0100 ####[facility] [address] [place], [address] Creatinine [Mass/Vol] 1.14 mg/dL Normal 0.70-1.20 [facility] Comment on above: Performed By: #### L 500.2500, L100.0100 ####[facility] [address] [place], [address] ECRCL 38.25 ml/min Low 50-250 [facility] Comment on above: Performed By: #### L 500.2500, L100.0100 ####[facility] [address] [place], [address] GAP 12 Normal 5-15 [facility] Comment on above: Performed By: #### L 500.2500, L100.0100 ####[facility] [address] [place], [address] GFR/1.73 sq M.predicted among non-blacks MDRD (S/P/Bld) [Vol rate/Area] 48 mL/min/{1.73_m2} Low >60 [facility] Comment on above: Result Comment: mL/m in/1.73m2 CKD-EPI Creatinine Equation (2020) Performed By: #### L 500.2500, L100.0100 ####[facility] [address] [place], [address] Glucose [Mass/Vol] 123 mg/dL High 70-99 [facility] Comment on above: Performed By: #### L 500.2500, L100.0100 ####[facility] [address] [place], [address] Potassium [Moles/Vol] 4.8 mmol/L Normal 3.3-5.1 [facility] Comment on above: Performed By: #### L 500.2500, L100.0100 ####[facility] [address] [place], [address] Sodium [Moles/Vol] 139 mmol/L Normal 133-145 [facility] Comment on above: Performed By: #### L 500.2500, L100.0100 ####[facility] [address] [place], [address] Urea nitrogen [Mass/Vol] 25 mg/dL High 4-19 [facility] Comment on above: Performed By: #### L 500.2500, L100.0100 ####[facility] [address] [place], [address] Basophil percentageOrdered B y: Melbanereida Hartmann on 03-25-2025 Basophils/100 WBC (Bld) 0.4 % 0-1 [facility] Bedside Glucoseon 03-25-2025 FINGERSTICK GLU 193 mg/dL High 74-106 [facility] Comment on above: Result Comment: KATARINA GARY OF PATIENT CARE PER NURSING PROTOCOL Performed By: #### L 501.080 ####[facility] [address] [place], [address] FINGERSTICK GLU 164 mg/dL High 74-106 [facility] Comment on above: Result Comment: KATARINA GEMENT OF PATIENT CARE PER NURSING PROTOCOL Performed By: #### L 501.080 ####[facility] [address] [place], [address] FINGERSTICK GLU 124 mg/dL High 74-106 [facility] Comment on above: Result Comment: KATARINA GEMENT OF PATIENT CARE PER NURSING PROTOCOL Performed By: #### L 501.080 ####[facility] [address] [place], [address] CBC W/Diff, Automatedon 07-2 6-2024 Absolute Lymph 2.04 X10 3/uL Normal 0.83-4.51 [facility] Comment on above: Performed By: #### L 500.2500, L100.0100 ####[facility] [address] [place], [address] Absolute Neut 4.8 X10 3/uL Normal 2.0-7.7 [facility] Comment on above: Performed By: #### L 500.2500, L100.0100 ####[facility] [address] [place], [address] Basophils/100 WBC (Bld) 0.4 % Normal 0-1 [facility] Comment on above: Performed By: #### L 500.2500, L100.0100 ####[facility] [address] [place], [address] Eosinophils/100 WBC (Bld) 0.8 % Normal 0-5 [facility] Comment on above: Performed By: #### L 500.2500, L100.0100 ####[facility] [address] [place], [address] Erythrocyte distribution width (RBC) [Ratio] 16.3 % High 11.6-14.6 [facility] Comment on above: Performed By: #### L 500.2500, L100.0100 ####[facility] [address] [place], [address] Hematocrit (Bld) [Volume fraction] 29.7 % Low 37-47 [facility] Comment on above: Performed By: #### L 500.2500, L100.0100 ####[facility] [address] [place], [address] Hemoglobin (Bld) [Mass/Vol] 9.0 g/dL Low 12.0-15.0 [facility] Comment on above: Performed By: #### L 500.2500, L100.0100 ####[facility] [address] [place], [address] IG% 0.800 Normal 0.0-0.9 [facility] Comment on above: Result Comment: IG% - Immature Granulocytes (promyelocytes, myelocytes andmetamyelocytes) > 1% indicates that a LEFT SHIFT is Present. Performed By: #### L 500.2500, L100.0100 ####[facility] [address] [place], [address] Lymphocytes/100 WBC (Bld) 26.3 % Normal 19-41 [facility] Comment on above: Performed By: #### L 500.2500, L100.0100 ####[facility] [address] [place], [address] MCH (RBC) [Entitic mass] 27.2 pg Normal 27.0-32.0 [facility] Comment on above: Performed By: #### L 500.2500, L100.0100 ####[facility] [address] [place], [address] MCHC (RBC) [Mass/Vol] 30.3 g/dL Low 32-36 [facility] Comment on above: Performed By: #### L 500.2500, L100.0100 ####[facility] [address] [place], [address] MCV (RBC) [Entitic vol] 89.7 fL Normal 81-99 [facility] Comment on above: Performed By: #### L 500.2500, L100.0100 ####[facility] [address] [place], [address] Monocytes/100 WBC (Bld) 10.4 % High 0-10 [facility] Comment on above: Performed By: #### L 500.2500, L100.0100 ####[facility] [address] [place], [address] Neutrophils/100 WBC (Bld) 61.3 % Normal 47-70 [facility] Comment on above: Performed By: #### L 500.2500, L100.0100 ####[facility] [address] [place], [address] Nucleated RBC (Bld) [#/Vol] 0.3 10*3/uL Normal 0-5 [facility] Comment on above: Performed By: #### L 500.2500, L100.0100 ####[facility] [address] [place], [address] Platelet mean volume (Bld) [Entitic vol] 10.8 fL Normal 6.2-12.0 [facility] Comment on above: Performed By: #### L 500.2500, L100.0100 ####[facility] [address] [place], [address] Platelets (Bld) [#/Vol] 251 10*3/uL Normal 150-450 [facility] Comment on above: Performed By: #### L 500.2500, L100.0100 ####[facility] [address] [place], [address] RBC (Bld) [#/Vol] 3.31 10*6/uL Low 4.2-5.4 [facility] Comment on above: Performed By: #### L 500.2500, L100.0100 ####[facility] [address] [place], [address] RDW SD 53.7 fl High 35.1-43.9 [facility] Comment on above: Performed By: #### L 500.2500, L100.0100 ####[facility] [address] [place], [address] WBC (Bld) [#/Vol] 7.8 10*3/uL Normal 4.4-11.0 [facility] Comment on above: Performed By: #### L 500.2500, L100.0100 ####[facility] [address] [facility] [place], [address] Carbon dioxide, total [Moles /volume] in Central venous bloodOrdered By: Melba Hartmann on 03-25-2025 CO2 [Moles/Vol] 26.0 mmol/L 21.0-32.0 [facility] Chloride assayOrdered By: Na na Mary Kate on 03-25-2025 Chloride [Moles/Vol] 101 mmol/L 98-108 [facility] Discharge Instructionon 03-01 Discharge Instruction Normal [facility] Eosinophil percentageOrdered By: Melba Hartmann on 03-25-2025 Eosinophils/100 WBC (Bld) 0.8 % 0-5 [facility] Erythrocyte distribution wid th ratioOrdered By: Melba Hartmann on 03-25-2025 Erythrocyte distribution width (RBC) [Ratio] 16.3 % High 11.6-14.6 [facility] Erythrocyte distribution wid th standard deviationOrdered By: Melba Hartmann on 03-25-2025 Erythrocyte distribution width (RBC) [Ratio] 53.7 fl High 35.1-43.9 [facility] Glomerular filtration rate ( GFR) estimation/1.73 sq m using serum, plasma, or whole bOrdered By: Melba Hartmann on 03-25-2025 GFR/1.73 sq M.predicted among non-blacks MDRD (S/P/Bld) [Vol rate/Area] 48 mL/min/{1.73_m2} Low >60 [facility] Glucose measurement at bedsi deOrdered By: Melba Hartmann on 03-25-2025 Glucose [Mass/Vol] 193 mg/dL High 74-106 [facility] Hematocrit Auto (Bld) [Volum e fraction]Ordered By: Melba Hartmann on 03-25-2025 Hematocrit (Bld) [Volume fraction] 29.7 % Low 37-47 [facility] Hemoglobin measurementOrdere d By: Melba Hartmann on 03-25-2025 Hemoglobin (Bld) [Mass/Vol] 9.0 g/dL Low 12.0-15.0 [facility] Immature granulocytes/100 WB C Auto (Bld)Ordered By: Melba Hartmann on 03-25-2025 Immature granulocytes/100 WBC (Bld) 0.800 % 0.0-0.9 [facility] MCV (mean corpuscular volume ) determinationOrdered By: Melba Hartmann on 03-25-2025 MCV (RBC) [Entitic vol] 89.7 fL 81-99 [facility] Mean corpuscular hemoglobin (MCH) determinationOrdered By: Melba Hartmann on 03-25-2025 MCH (RBC) [Entitic mass] 27.2 pg 27.0-32.0 [facility] Monocyte percentageOrdered B y: Melba Hartmann on 03-25-2025 Monocytes/100 WBC (Bld) 10.4 % High 0-10 [facility] Neutrophil percentageOrdered By: Melba Hartmann on 03-25-2025 Neutrophils/100 WBC (Bld) 61.3 % 47-70 [facility] Platelet countOrdered By: Ewelina Hartmann on 03-25-2025 Platelets (Bld) [#/Vol] 251 10*3/uL 150-450 [facility] Potassium measurement (mass/ volume)Ordered By: Melba Hartmann on 03-25-2025 Potassium (Unsp spec) [Mass/Vol] 4.8 mmol/L 3.3-5.1 [facility] RBC Auto (Bld) [#/Vol]Ordere d By: Melba Hartmann on 03-25-2025 RBC (Bld) [#/Vol] 3.31 10*6/uL Low 4.2-5.4 [facility] Serum creatinine measurement (mass/volume)Ordered By: Melba Hartmann on 03-25-2025 Creatinine [Mass/Vol] 1.14 mg/dL 0.70-1.20 [facility] Serum glucose measurement (m ass/volume)Ordered By: Melba Hartmann on 03-25-2025 Glucose [Mass/Vol] 123 mg/dL High 70-99 [facility] Serum or plasma calcium melanie urement (mass/volume)Ordered By: Melba Hartmann on 03-25-2025 Calcium [Mass/Vol] 10.6 mg/dL 7.6-11.0 [facility] Serum or plasma urea nitroge n measurement (mass/volume)Ordered By: Melba Hartmann on 03-25-2025 Urea nitrogen [Mass/Vol] 25 mg/dL High 4-19 [facility] Sodium levelOrdered By: Melba Hartmann on 03-25-2025 Sodium [Moles/Vol] 139 mmol/L 133-145 [facility] White blood cell (WBC) count Ordered By: Melba Hartmann on 03-25-2025 WBC (Bld) [#/Vol] 7.8 10*3/uL 4.4-11.0 [facility] Basic Metabolic Profile (BMP )on 03-24-2025 BUN/CRE 19.7 RATIO Normal 10-20 [facility] Comment on above: Performed By: #### L 100.0100, L500.2500 ####[facility] [address] [place], [address] Calcium [Mass/Vol] 10.5 mg/dL Normal 7.6-11.0 [facility] Comment on above: Performed By: #### L 100.0100, L500.2500 ####[facility] [address] [place], [address] Chloride [Moles/Vol] 97 mmol/L Low 98-108 [facility] Comment on above: Performed By: #### L 100.0100, L500.2500 ####[facility] [address] [place], [address] CO2 [Moles/Vol] 27.0 mmol/L Normal 21.0-32.0 [facility] Comment on above: Performed By: #### L 100.0100, L500.2500 ####[facility] [address] [place], [address] Creatinine [Mass/Vol] 1.21 mg/dL High 0.70-1.20 [facility] Comment on above: Performed By: #### L 100.0100, L500.2500 ####[facility] [address] [place], [address] ECRCL 35.44 ml/min Low 50-250 [facility] Comment on above: Performed By: #### L 100.0100, L500.2500 ####[facility] [address] [place], [address] GAP 11 Normal 5-15 [facility] Comment on above: Performed By: #### L 100.0100, L500.2500 ####[facility] [address] [place], [address] GFR/1.73 sq M.predicted among non-blacks MDRD (S/P/Bld) [Vol rate/Area] 45 mL/min/{1.73_m2} Low >60 [facility] Comment on above: Result Comment: mL/m in/1.73m2 CKD-EPI Creatinine Equation (2020) Performed By: #### L 100.0100, L500.2500 ####[facility] [address] [place], [address] Glucose [Mass/Vol] 165 mg/dL High 70-99 [facility] Comment on above: Performed By: #### L 100.0100, L500.2500 ####[facility] [address] [place], [address] Potassium [Moles/Vol] 4.8 mmol/L Normal 3.3-5.1 [facility] Comment on above: Performed By: #### L 100.0100, L500.2500 ####[facility] [address] [place], [address] Sodium [Moles/Vol] 135 mmol/L Normal 133-145 [facility] Comment on above: Performed By: #### L 100.0100, L500.2500 ####[facility] [address] [place], [address] Urea nitrogen [Mass/Vol] 24 mg/dL High 4-19 [facility] Comment on above: Performed By: #### L 100.0100, L500.2500 ####[facility] [address] [place], [address] Bedside Glucoseon 03-24-2025 FINGERSTICK GLU 294 mg/dL High 74-106 [facility] Comment on above: Result Comment: KATARINA GEMENT OF PATIENT CARE PER NURSING PROTOCOL Performed By: #### L 501.080 ####[facility] [address] [place], [address] FINGERSTICK GLU 311 mg/dL High 74-106 [facility] Comment on above: Result Comment: KATARINA GEMENT OF PATIENT CARE PER NURSING PROTOCOL Performed By: #### L 501.080 ####[facility] [address] [place], [address] FINGERSTICK GLU 132 mg/dL High 74-106 [facility] Comment on above: Result Comment: KATARINA GEMENT OF PATIENT CARE PER NURSING PROTOCOL Performed By: #### L 501.080 ####[facility] [address] [place], [address] FINGERSTICK GLU 156 mg/dL High 74-106 [facility] Comment on above: Result Comment: KATARINA GEMENT OF PATIENT CARE PER NURSING PROTOCOL Performed By: #### L 501.080 ####[facility] [address] [place], [address] CBC W/Diff, Automatedon 07-2 5-2024 Absolute Lymph 1.88 X10 3/uL Normal 0.83-4.51 [facility] Comment on above: Performed By: #### L 100.0100, L500.2500 ####[facility] [address] [place], [address] Absolute Neut 6.1 X10 3/uL Normal 2.0-7.7 [facility] Comment on above: Performed By: #### L 100.0100, L500.2500 ####[facility] [address] [place], [address] Basophils/100 WBC (Bld) 0.3 % Normal 0-1 [facility] Comment on above: Performed By: #### L 100.0100, L500.2500 ####[facility] [address] [place], [address] Eosinophils/100 WBC (Bld) 0.8 % Normal 0-5 [facility] Comment on above: Performed By: #### L 100.0100, L500.2500 ####[facility] [address] [place], [address] Erythrocyte distribution width (RBC) [Ratio] 16.4 % High 11.6-14.6 [facility] Comment on above: Performed By: #### L 100.0100, L500.2500 ####[facility] [address] [place], [address] Hematocrit (Bld) [Volume fraction] 29.7 % Low 37-47 [facility] Comment on above: Performed By: #### L 100.0100, L500.2500 ####[facility] [address] [place], [address] Hemoglobin (Bld) [Mass/Vol] 9.1 g/dL Low 12.0-15.0 [facility] Comment on above: Performed By: #### L 100.0100, L500.2500 ####[facility] [address] [place], [address] IG% 0.300 Normal 0.0-0.9 [facility] Comment on above: Result Comment: IG% - Immature Granulocytes (promyelocytes, myelocytes andmetamyelocytes) > 1% indicates that a LEFT SHIFT is Present. Performed By: #### L 100.0100, L500.2500 ####[facility] [address] [place], [address] Lymphocytes/100 WBC (Bld) 21.3 % Normal 19-41 [facility] Comment on above: Performed By: #### L 100.0100, L500.2500 ####[facility] [address] [place], [address] MCH (RBC) [Entitic mass] 26.6 pg Low 27.0-32.0 [facility] Comment on above: Performed By: #### L 100.0100, L500.2500 ####[facility] [address] [place], [address] MCHC (RBC) [Mass/Vol] 30.6 g/dL Low 32-36 [facility] Comment on above: Performed By: #### L 100.0100, L500.2500 ####[facility] [address] [place], [address] MCV (RBC) [Entitic vol] 86.8 fL Normal 81-99 [facility] Comment on above: Performed By: #### L 100.0100, L500.2500 ####[facility] [address] [place], [address] Monocytes/100 WBC (Bld) 8.5 % Normal 0-10 [facility] Comment on above: Performed By: #### L 100.0100, L500.2500 ####[facility] [address] [place], [address] Neutrophils/100 WBC (Bld) 68.8 % Normal 47-70 [facility] Comment on above: Performed By: #### L 100.0100, L500.2500 ####[facility] [address] [place], [address] Nucleated RBC (Bld) [#/Vol] 0 10*3/uL Normal 0-5 [facility] Comment on above: Performed By: #### L 100.0100, L500.2500 ####[facility] [address] [place], [address] Platelet mean volume (Bld) [Entitic vol] 10.7 fL Normal 6.2-12.0 [facility] Comment on above: Performed By: #### L 100.0100, L500.2500 ####[facility] [address] [place], [address] Platelets (Bld) [#/Vol] 288 10*3/uL Normal 150-450 [facility] Comment on above: Performed By: #### L 100.0100, L500.2500 ####[facility] [address] [place], [address] RBC (Bld) [#/Vol] 3.42 10*6/uL Low 4.2-5.4 [facility] Comment on above: Performed By: #### L 100.0100, L500.2500 ####[facility] [address] [place], [address] RDW SD 52.3 fl High 35.1-43.9 [facility] Comment on above: Performed By: #### L 100.0100, L500.2500 ####[facility] [address] [place], [address] WBC (Bld) [#/Vol] 8.8 10*3/uL Normal 4.4-11.0 [facility] Comment on above: Performed By: #### L 100.0100, L500.2500 ####[facility] [address] [place], [address] Urine Cultureon 03-24-2025 URC Normal [facility] Comment on above: Performed By: #### M 100.2200 ####[facility] [address] [place], [address] Basic Metabolic Profile (BMP )on 03-23-2025 BUN/CRE 15.2 RATIO Normal 10-20 [facility] Comment on above: Performed By: #### L 500.2500, L100.0100 ####[facility] [address] [place], [address] Calcium [Mass/Vol] 10.2 mg/dL Normal 7.6-11.0 [facility] Comment on above: Performed By: #### L 500.2500, L100.0100 ####[facility] [address] [place], [address] Chloride [Moles/Vol] 98 mmol/L Normal 98-108 [facility] Comment on above: Performed By: #### L 500.2500, L100.0100 ####[facility] [address] [place], [address] CO2 [Moles/Vol] 26.0 mmol/L Normal 21.0-32.0 [facility] Comment on above: Performed By: #### L 500.2500, L100.0100 ####[facility] [address] [place], [address] Creatinine [Mass/Vol] 1.25 mg/dL High 0.70-1.20 [facility] Comment on above: Performed By: #### L 500.2500, L100.0100 ####[facility] [address] [place], [address] ECRCL 33.86 ml/min Low 50-250 [facility] Comment on above: Performed By: #### L 500.2500, L100.0100 ####[facility] [address] [place], [address] GAP 8 Normal 5-15 [facility] Comment on above: Performed By: #### L 500.2500, L100.0100 ####[facility] [address] [place], [address] GFR/1.73 sq M.predicted among non-blacks MDRD (S/P/Bld) [Vol rate/Area] 43 mL/min/{1.73_m2} Low >60 [facility] Comment on above: Result Comment: mL/m in/1.73m2 CKD-EPI Creatinine Equation (2020) Performed By: #### L 500.2500, L100.0100 ####[facility] [address] [place], [address] Glucose [Mass/Vol] 198 mg/dL High 70-99 [facility] Comment on above: Performed By: #### L 500.2500, L100.0100 ####[facility] [address] [place], [address] Potassium [Moles/Vol] 5.8 mmol/L High 3.3-5.1 [facility] Comment on above: Performed By: #### L 500.2500, L100.0100 ####[facility] [address] [place], [address] Sodium [Moles/Vol] 132 mmol/L Low 133-145 [facility] Comment on above: Performed By: #### L 500.2500, L100.0100 ####[facility] [address] [place], [address] Urea nitrogen [Mass/Vol] 19 mg/dL Normal 4-19 [facility] Comment on above: Performed By: #### L 500.2500, L100.0100 ####[facility] [address] [place], [address] Bedside Glucoseon - FINGERSTICK GLU 257 mg/dL High 74-106 [facility] Comment on above: Result Comment: KATARINA GEMENT OF PATIENT CARE PER NURSING PROTOCOL Performed By: #### L 501.080 ####[facility] [address] [place], [address] FINGERSTICK GLU 251 mg/dL High 74-106 [facility] Comment on above: Result Comment: KATARINA GEMENT OF PATIENT CARE PER NURSING PROTOCOL Performed By: #### L 501.080 ####[facility] [address] [place], [address] FINGERSTICK GLU 232 mg/dL High 74-106 [facility] Comment on above: Result Comment: KATARINA GEMENT OF PATIENT CARE PER NURSING PROTOCOL Performed By: #### L 501.080 ####[facility] [address] [place], [address] FINGERSTICK GLU 228 mg/dL High -106 [facility] Comment on above: Result Comment: KATARINA GEMENT OF PATIENT CARE PER NURSING PROTOCOL Performed By: #### L 501.080 ####[facility] [address] [place], [address] CBC W/Diff, Automatedon 07-2 Absolute Lymph 1.21 X10 3/uL Normal 0.83-4.51 [facility] Comment on above: Performed By: #### L 500.2500, L100.0100 ####[facility] [address] [place], [address] Absolute Neut 5.6 X10 3/uL Normal 2.0-7.7 [facility] Comment on above: Performed By: #### L 500.2500, L100.0100 ####[facility] [address] [place], [address] Basophils/100 WBC (Bld) 0.1 % Normal 0-1 [facility] Comment on above: Performed By: #### L 500.2500, L100.0100 ####[facility] [address] [place], [address] Eosinophils/100 WBC (Bld) 0.0 % Normal 0-5 [facility] Comment on above: Performed By: #### L 500.2500, L100.0100 ####[facility] [address] [place], [address] Erythrocyte distribution width (RBC) [Ratio] 16.0 % High 11.6-14.6 [facility] Comment on above: Performed By: #### L 500.2500, L100.0100 ####[facility] [address] [place], [address] Hematocrit (Bld) [Volume fraction] 28.0 % Low 37-47 [facility] Comment on above: Performed By: #### L 500.2500, L100.0100 ####[facility] [address] [place], [address] Hemoglobin (Bld) [Mass/Vol] 8.8 g/dL Low 12.0-15.0 [facility] Comment on above: Performed By: #### L 500.2500, L100.0100 ####[facility] [address] [place], [address] IG% 0.500 Normal 0.0-0.9 [facility] Comment on above: Result Comment: IG% - Immature Granulocytes (promyelocytes, myelocytes andmetamyelocytes) > 1% indicates that a LEFT SHIFT is Present. Performed By: #### L 500.2500, L100.0100 ####[facility] [address] [place], [address] Lymphocytes/100 WBC (Bld) 16.5 % Low 19-41 [facility] Comment on above: Performed By: #### L 500.2500, L100.0100 ####[facility] [address] [place], [address] MCH (RBC) [Entitic mass] 27.0 pg Normal 27.0-32.0 [facility] Comment on above: Performed By: #### L 500.2500, L100.0100 ####[facility] [address] [place], [address] MCHC (RBC) [Mass/Vol] 31.4 g/dL Low 32-36 [facility] Comment on above: Performed By: #### L 500.2500, L100.0100 ####[facility] [address] [place], [address] MCV (RBC) [Entitic vol] 85.9 fL Normal 81-99 [facility] Comment on above: Performed By: #### L 500.2500, L100.0100 ####[facility] [address] [place], [address] Monocytes/100 WBC (Bld) 6.8 % Normal 0-10 [facility] Comment on above: Performed By: #### L 500.2500, L100.0100 ####[facility] [address] [place], [address] Neutrophils/100 WBC (Bld) 76.1 % High 47-70 [facility] Comment on above: Performed By: #### L 500.2500, L100.0100 ####[facility] [address] [place], [address] Nucleated RBC (Bld) [#/Vol] 0 10*3/uL Normal 0-5 [facility] Comment on above: Performed By: #### L 500.2500, L100.0100 ####[facility] [address] [place], [address] Platelet mean volume (Bld) [Entitic vol] 10.7 fL Normal 6.2-12.0 [facility] Comment on above: Performed By: #### L 500.2500, L100.0100 ####[facility] [address] [place], [address] Platelets (Bld) [#/Vol] 274 10*3/uL Normal 150-450 [facility] Comment on above: Performed By: #### L 500.2500, L100.0100 ####[facility] [address] [place], [address] RBC (Bld) [#/Vol] 3.26 10*6/uL Low 4.2-5.4 [facility] Comment on above: Performed By: #### L 500.2500, L100.0100 ####[facility] [address] [place], [address] RDW SD 50.8 fl High 35.1-43.9 [facility] Comment on above: Performed By: #### L 500.2500, L100.0100 ####[facility] [address] [place], [address] WBC (Bld) [#/Vol] 7.4 10*3/uL Normal 4.4-11.0 [facility] Comment on above: Performed By: #### L 500.2500, L100.0100 ####[facility] [address] [place], [address] Potassiumon 03-23-2025 Potassium [Moles/Vol] 5.2 mmol/L High 3.3-5.1 [facility] Comment on above: Performed By: #### L 501.5600 ####[facility] [address] [place], [address] Bedside Glucoseon 03-22-2025 FINGERSTICK GLU 243 mg/dL High 74-106 [facility] Comment on above: Result Comment: KATARINA GEMENT OF PATIENT CARE PER NURSING PROTOCOL Performed By: #### L 501.080 ####[facility] [address] [place], [address] FINGERSTICK GLU 232 mg/dL High 74-106 [facility] Comment on above: Result Comment: KATARINA GEMENT OF PATIENT CARE PER NURSING PROTOCOL Performed By: #### L 501.080 ####[facility] [address] [place], [address] FINGERSTICK GLU 131 mg/dL High -106 [facility] Comment on above: Result Comment: KATARINA GEMENT OF PATIENT CARE PER NURSING PROTOCOL Performed By: #### L 501.080 ####[facility] [address] [place], [address] FINGERSTICK GLU 139 mg/dL High -106 [facility] Comment on above: Result Comment: KATARINA GEMENT OF PATIENT CARE PER NURSING PROTOCOL Performed By: #### L 501.080 ####[facility] [address] [place], [address] Bilirubin, totalOrdered By: Abigail Foster on 03-22-2025 Bilirubin [Mass/Vol] 0.21 mg/dL 0.00-1.30 [facility] Blood manual differential co mment interpretation (narrative result)Ordered By: Abigail Foster on 03-22-2025 Manual differential comment Daniel (Bld) [Interp] SCANNED [facility] CBC W/Diff, Automatedon 03-01 SMEAR COMMENT SCANNED Normal [facility] Comment on above: Performed By: #### L 100.0100, L500.4050 ####[facility] [address] [place], [address] Comprehensive Metabolic Prof ilon 03-22-2025 Albumin [Mass/Vol] 3.0 g/dL Low 3.4-4.8 [facility] Comment on above: Performed By: #### L 100.0100, L500.4050 ####[facility] [address] [place], [address] Albumin/Globulin [Mass ratio] 1.0 {ratio} Normal 0.9-2.4 [facility] Comment on above: Performed By: #### L 100.0100, L500.4050 ####[facility] [address] [place], [address] ALK PHOS 68 U/L Normal 35-104 [facility] Comment on above: Performed By: #### L 100.0100, L500.4050 ####[facility] [address] [place], [address] ALT [Catalytic activity/Vol] 8 U/L Normal <=34 [facility] Comment on above: Performed By: #### L 100.0100, L500.4050 ####[facility] [address] [place], [address] AST [Catalytic activity/Vol] 19 U/L Normal <=31 [facility] Comment on above: Performed By: #### L 100.0100, L500.4050 ####[facility] [address] [place], [address] Bilirubin [Mass/Vol] 0.21 mg/dL Normal 0.00-1.30 [facility] Comment on above: Performed By: #### L 100.0100, L500.4050 ####[facility] [address] [place], [address] BUN/CRE 18.4 RATIO Normal 10-20 [facility] Comment on above: Performed By: #### L 100.0100, L500.4050 ####[facility] [address] [place], [address] Calcium [Mass/Vol] 10.0 mg/dL Normal 7.6-11.0 [facility] Comment on above: Performed By: #### L 100.0100, L500.4050 ####[facility] [address] [place], [address] Chloride [Moles/Vol] 100 mmol/L Normal 98-108 [facility] Comment on above: Performed By: #### L 100.0100, L500.4050 ####[facility] [address] [place], [address] CO2 [Moles/Vol] 25.4 mmol/L Normal 21.0-32.0 [facility] Comment on above: Performed By: #### L 100.0100, L500.4050 ####[facility] [address] [place], [address] Creatinine [Mass/Vol] 0.93 mg/dL Normal 0.70-1.20 [facility] Comment on above: Performed By: #### L 100.0100, L500.4050 ####[facility] [address] [place], [address] ECRCL 44.58 ml/min Low 50-250 [facility] Comment on above: Performed By: #### L 100.0100, L500.4050 ####[facility] [address] [place], [address] GAP 10 Normal 5-15 [facility] Comment on above: Performed By: #### L 100.0100, L500.4050 ####[facility] [address] [place], [address] GFR/1.73 sq M.predicted among non-blacks MDRD (S/P/Bld) [Vol rate/Area] 62 mL/min/{1.73_m2} Normal >60 [facility] Comment on above: Result Comment: mL/m in/1.73m2 CKD-EPI Creatinine Equation (2020) Performed By: #### L 100.0100, L500.4050 ####[facility] [address] [place], [address] Globulin (S) [Mass/Vol] 3.1 g/dL Normal 2.2-4.2 [facility] Comment on above: Performed By: #### L 100.0100, L500.4050 ####[facility] [address] [place], [address] Glucose [Mass/Vol] 144 mg/dL High 70-99 [facility] Comment on above: Performed By: #### L 100.0100, L500.4050 ####[facility] [address] [place], [address] Potassium [Moles/Vol] 4.2 mmol/L Normal 3.3-5.1 [facility] Comment on above: Performed By: #### L 100.0100, L500.4050 ####[facility] [address] [place], [address] Sodium [Moles/Vol] 135 mmol/L Normal 133-145 [facility] Comment on above: Performed By: #### L 100.0100, L500.4050 ####[facility] [address] [place], [address] T PROT 6.1 g/dL Normal 5.9-8.4 [facility] Comment on above: Performed By: #### L 100.0100, L500.4050 ####[facility] [address] [place], [address] Urea nitrogen [Mass/Vol] 17 mg/dL Normal 4-19 [facility] Comment on above: Performed By: #### L 100.0100, L500.4050 ####[facility] [address] [place], [address] No Panel InformationOrdered By: Abigail Foster on 03-22-2025 19 U/L <32 [facility] Serum globulin measurementOr dered By: Abigail Foster on 03-22-2025 Globulin (S) [Mass/Vol] 3.1 g/dL 2.2-4.2 [facility] Serum or plasma alanine kelley otransferase (ALT) measurementOrdered By: Abigail Kristin on 03-22-2025 ALT [Catalytic activity/Vol] 8 U/L <35 [facility] Serum or plasma albumin melanie urement (mass/volume)Ordered By: Abigail Kristin on 03-22-2025 Albumin [Mass/Vol] 3.0 g/dL Low 3.4-4.8 [facility] Serum or plasma albumin/glob ulin mass ratioOrdered By: Abigail Kristin on 03-22-2025 Albumin/Globulin [Mass ratio] 1.0 {ratio} 0.9-2.4 [facility] Serum or plasma alkaline lissa sphatase measurementOrdered By: Abigail Foster on 03-22-2025 ALP [Catalytic activity/Vol] 68 U/L 35-104 [facility] Total proteinOrdered By: Aut [facility] Kristin on 03-22-2025 Protein [Mass/Vol] 6.1 g/dL 5.9-8.4 [facility] Abdomen/Pelvis W IV Cont ONL Yon 03-21-2025 Abdomen/Pelvis W IV Cont ONLY Normal [facility] Absolute lymphocyte countOrd ered By: Noé Currie on 03-21-2025 Lymphocytes Auto (Unsp spec) [#/Vol] 2.26 10*3/uL 0.83-4.51 [facility] Anion gap in Serum or Plasma Ordered By: Noé Currie on 03-21-2025 Anion gap [Moles/Vol] 13 mmol/L 5-15 [facility] Automated lymphocyte count a s percentage of total leukocytesOrdered By: Noé Currie on 03-21-2025 Lymphocytes/100 WBC Auto (Unsp spec) 27.1 % 19-41 [facility] BUN/creatinine ratioOrdered By: Noé Currie on 03-21-2025 Urea nitrogen/Creatinine [Mass ratio] 18.2 mg/mg 10-20 [facility] Basic Metabolic Profile (BMP )on 03-21-2025 BUN/CRE 18.2 RATIO Normal 10-20 [facility] Comment on above: Performed By: #### L 500.2500, L100.0100 ####[facility] [address] [place], [address] Calcium [Mass/Vol] 10.5 mg/dL Normal 7.6-11.0 [facility] Comment on above: Performed By: #### L 500.2500, L100.0100 ####[facility] [address] [place], [address] Chloride [Moles/Vol] 98 mmol/L Normal 98-108 [facility] Comment on above: Performed By: #### L 500.2500, L100.0100 ####[facility] [address] [place], [address] CO2 [Moles/Vol] 26.4 mmol/L Normal 21.0-32.0 [facility] Comment on above: Performed By: #### L 500.2500, L100.0100 ####[facility] [address] [place], [address] Creatinine [Mass/Vol] 1.00 mg/dL Normal 0.70-1.20 [facility] Comment on above: Performed By: #### L 500.2500, L100.0100 ####[facility] [address] [place], [address] ECRCL 41.62 ml/min Low 50-250 [facility] Comment on above: Performed By: #### L 500.2500, L100.0100 ####[facility] [address] [place], [address] GAP 13 Normal 5-15 [facility] Comment on above: Performed By: #### L 500.2500, L100.0100 ####[facility] [address] [place], [address] GFR/1.73 sq M.predicted among non-blacks MDRD (S/P/Bld) [Vol rate/Area] 57 mL/min/{1.73_m2} Low >60 [facility] Comment on above: Result Comment: mL/m in/1.73m2 CKD-EPI Creatinine Equation (2020) Performed By: #### L 500.2500, L100.0100 ####[facility] [address] [place], [address] Glucose [Mass/Vol] 128 mg/dL High 70-99 [facility] Comment on above: Performed By: #### L 500.2500, L100.0100 ####[facility] [address] [place], [address] Potassium [Moles/Vol] 4.4 mmol/L Normal 3.3-5.1 [facility] Comment on above: Result Comment: Hemo lysis present, Results??could be affected.?? Performed By: #### L 500.2500, L100.0100 ####[facility] [address] [place], [address] Sodium [Moles/Vol] 137 mmol/L Normal 133-145 [facility] Comment on above: Performed By: #### L 500.2500, L100.0100 ####[facility] [address] [place], [address] Urea nitrogen [Mass/Vol] 18 mg/dL Normal 4-19 [facility] Comment on above: Performed By: #### L 500.2500, L100.0100 ####[facility] [address] [place], [address] Basophil percentageOrdered B y: Noé Currie on 03-21-2025 Basophils/100 WBC (Bld) 0.7 % 0-1 [facility] Bedside Glucoseon 03-21-2025 FINGERSTICK GLU 114 mg/dL High 74-106 [facility] Comment on above: Result Comment: KATARINA GARY OF PATIENT CARE PER NURSING PROTOCOL Performed By: #### L 501.080 ####[facility] [address] [place], [address] Bilirubin Test strip Ql (U)O rdered By: Ethan Suarez on 03-21-2025 Bilirubin Ql (U) Negative Negative [facility] CBC W/Diff, Automatedon 03-01 Absolute Lymph 2.26 X10 3/uL Normal 0.83-4.51 [facility] Comment on above: Performed By: #### L 500.2500, L100.0100 ####[facility] [address] [place], [address] Absolute Neut 5.2 X10 3/uL Normal 2.0-7.7 [facility] Comment on above: Performed By: #### L 500.2500, L100.0100 ####[facility] [address] [place], [address] Basophils/100 WBC (Bld) 0.7 % Normal 0-1 [facility] Comment on above: Performed By: #### L 500.2500, L100.0100 ####[facility] [address] [place], [address] Eosinophils/100 WBC (Bld) 0.8 % Normal 0-5 [facility] Comment on above: Performed By: #### L 500.2500, L100.0100 ####[facility] [address] [place], [address] Erythrocyte distribution width (RBC) [Ratio] 16.4 % High 11.6-14.6 [facility] Comment on above: Performed By: #### L 500.2500, L100.0100 ####[facility] [address] [place], [address] Hematocrit (Bld) [Volume fraction] 31.3 % Low 37-47 [facility] Comment on above: Performed By: #### L 500.2500, L100.0100 ####[facility] [address] [place], [address] Hemoglobin (Bld) [Mass/Vol] 9.7 g/dL Low 12.0-15.0 [facility] Comment on above: Performed By: #### L 500.2500, L100.0100 ####[facility] [address] [place], [address] IG% 0.500 Normal 0.0-0.9 [facility] Comment on above: Result Comment: IG% - Immature Granulocytes (promyelocytes, myelocytes andmetamyelocytes) > 1% indicates that a LEFT SHIFT is Present. Performed By: #### L 500.2500, L100.0100 ####[facility] [address] [place], [address] Lymphocytes/100 WBC (Bld) 27.1 % Normal 19-41 [facility] Comment on above: Performed By: #### L 500.2500, L100.0100 ####[facility] [address] [place], [address] MCH (RBC) [Entitic mass] 27.0 pg Normal 27.0-32.0 [facility] Comment on above: Performed By: #### L 500.2500, L100.0100 ####[facility] [address] [place], [address] MCHC (RBC) [Mass/Vol] 31.0 g/dL Low 32-36 [facility] Comment on above: Performed By: #### L 500.2500, L100.0100 ####[facility] [address] [place], [address] MCV (RBC) [Entitic vol] 87.2 fL Normal 81-99 [facility] Comment on above: Performed By: #### L 500.2500, L100.0100 ####[facility] [address], [address] Monocytes/100 WBC (Bld) 8.6 % Normal 0-10 [facility] Comment on above: Performed By: #### L 500.2500, L100.0100 ####[facility] [address] [place], [address] Neutrophils/100 WBC (Bld) 62.3 % Normal 47-70 [facility] Comment on above: Performed By: #### L 500.2500, L100.0100 ####[facility] [address] [place], [address] Nucleated RBC (Bld) [#/Vol] 0 10*3/uL Normal 0-5 [facility] Comment on above: Performed By: #### L 500.2500, L100.0100 ####[facility] [address] [place], [address] Platelet mean volume (Bld) [Entitic vol] 11.1 fL Normal 6.2-12.0 [facility] Comment on above: Performed By: #### L 500.2500, L100.0100 ####[facility] [address] [place], [address] Platelets (Bld) [#/Vol] 304 10*3/uL Normal 150-450 [facility] Comment on above: Performed By: #### L 500.2500, L100.0100 ####[facility] [address] [place], [address] RBC (Bld) [#/Vol] 3.59 10*6/uL Low 4.2-5.4 [facility] Comment on above: Performed By: #### L 500.2500, L100.0100 ####[facility] [address] [place], [address] RDW SD 52.5 fl High 35.1-43.9 [facility] Comment on above: Performed By: #### L 500.2500, L100.0100 ####[facility] [address] [place], [address] WBC (Bld) [#/Vol] 8.4 10*3/uL Normal 4.4-11.0 [facility] Comment on above: Performed By: #### L 500.2500, L100.0100 ####[facility] [address] [place], [address] Carbon dioxide, total [Moles /volume] in Central venous bloodOrdered By: Noé Currie on 03-21-2025 CO2 [Moles/Vol] 26.4 mmol/L 21.0-32.0 [facility] Chloride assayOrdered By: Natividad Currie on 03-21-2025 Chloride [Moles/Vol] 98 mmol/L 98-108 [facility] Emergency Department Summary on 03-21-2025 Emergency Department Summary Normal [facility] Eosinophil percentageOrdered By: Noé Currie on 03-21-2025 Eosinophils/100 WBC (Bld) 0.8 % 0-5 [facility] Erythrocyte distribution wid th ratioOrdered By: oNé Currie on 03-21-2025 Erythrocyte distribution width (RBC) [Ratio] 16.4 % High 11.6-14.6 [facility] Erythrocyte distribution wid th standard deviationOrdered By: Noé Currie on 03-21-2025 Erythrocyte distribution width (RBC) [Ratio] 52.5 fl High 35.1-43.9 [facility] Glomerular filtration rate ( GFR) estimation/1.73 sq m using serum, plasma, or whole bOrdered By: Noé Currie on 03-21-2025 GFR/1.73 sq M.predicted among non-blacks MDRD (S/P/Bld) [Vol rate/Area] 57 mL/min/{1.73_m2} Low >60 [facility] Glucose measurement at bedsi deOrdered By: Noé Currie on 03-21-2025 Glucose [Mass/Vol] 114 mg/dL High 74-106 [facility] H AND P Exam - Hospitaliston 03-21-2025 H&P Exam - Hospitalist Normal [facility] Hematocrit Auto (Bld) [Volum e fraction]Ordered By: Noé Currie on 03-21-2025 Hematocrit (Bld) [Volume fraction] 31.3 % Low 37-47 [facility] Hemoglobin measurementOrdere d By: Noé Currie on 03-21-2025 Hemoglobin (Bld) [Mass/Vol] 9.7 g/dL Low 12.0-15.0 [facility] Immature granulocytes/100 WB C Auto (Bld)Ordered By: Noé Currie on 03-21-2025 Immature granulocytes/100 WBC (Bld) 0.500 % 0.0-0.9 [facility] Ketones Test strip Ql (U)Ord ered By: Ethan Suarez on 03-21-2025 Ketones Ql (U) Negative Negative [facility] MCV (mean corpuscular volume ) determinationOrdered By: Noé Currie on 03-21-2025 MCV (RBC) [Entitic vol] 87.2 fL 81-99 [facility] Mean corpuscular hemoglobin (MCH) determinationOrdered By: Noé Currie on 03-21-2025 MCH (RBC) [Entitic mass] 27.0 pg 27.0-32.0 [facility] Monocyte percentageOrdered B y: Noé Currie on 03-21-2025 Monocytes/100 WBC (Bld) 8.6 % 0-10 [facility] Mucus LM Ql (Urine sed)Order ed By: Ethan Suarez on 03-21-2025 Mucus Ql (Urine sed) 0 SEEN /hpf [facility] Neutrophil percentageOrdered By: Noé Currie on 03-21-2025 Neutrophils/100 WBC (Bld) 62.3 % 47-70 [facility] Nitrite Test strip Ql (U)Ord ered By: Ethan Suarez on 03-21-2025 Nitrite Ql (U) Negative Negative [facility] Platelet countOrdered By: Natividad Curire on 03-21-2025 Platelets (Bld) [#/Vol] 304 10*3/uL 150-450 [facility] Potassium measurement (mass/ volume)Ordered By: Noé Currie on 03-21-2025 Potassium (Unsp spec) [Mass/Vol] 4.4 mmol/L 3.3-5.1 [facility] Protein Test strip Ql (U)Ord ered By: Ethan Suarez on 03-21-2025 Protein Ql (U) 30 mg/dl High Negative [facility] RBC Auto (Bld) [#/Vol]Ordere d By: Noé Currie on 03-21-2025 RBC (Bld) [#/Vol] 3.59 10*6/uL Low 4.2-5.4 [facility] Serum creatinine measurement (mass/volume)Ordered By: Noé Currie on 03-21-2025 Creatinine [Mass/Vol] 1.00 mg/dL 0.70-1.20 [facility] Serum glucose measurement (m ass/volume)Ordered By: Noé Currie on 03-21-2025 Glucose [Mass/Vol] 128 mg/dL High 70-99 [facility] Serum or plasma calcium melanie urement (mass/volume)Ordered By: Noé Currie on 03-21-2025 Calcium [Mass/Vol] 10.5 mg/dL 7.6-11.0 [facility] Serum or plasma urea nitroge n measurement (mass/volume)Ordered By: Noé Currie on 03-21-2025 Urea nitrogen [Mass/Vol] 18 mg/dL 4-19 [facility] Sodium levelOrdered By: Savage Currie on 03-21-2025 Sodium [Moles/Vol] 137 mmol/L 133-145 [facility] Spine Lumbar without Contras ton 03-21-2025 Spine Lumbar without Contrast Normal [facility] Squamous epithelial cells de tection in urine sediment by light microscopyOrdered By: Ethan Suarez on 03-21-2025 Epithelial cells.squamous LM Ql (Urine sed) 0-5 SEEN /hpf 5-10 [facility] Urinalysis, Completeon 03-21 BACTERIA 1+ /hpf Normal None Seen [facility] Comment on above: Order Comment: COLLE CTOR TO SPECIFY Performed By: #### L 400.0001 ####[facility] [address] [place], [address] RBC 0-5 SEEN Normal 0-5 [facility] Comment on above: Order Comment: MARSHALL CTOR TO SPECIFY Performed By: #### L 400.0001 ####[facility] [address] [place], [address] YEAST 1+ /hpf Normal None Seen [facility] Comment on above: Order Comment: MARSHALL CTOR TO SPECIFY Performed By: #### L 400.0001 ####[facility] [address] [place], [address] EPI,SQUAMOUS 0-5 SEEN Normal 5-10 [facility] Comment on above: Order Comment: MARSHALL CTOR TO SPECIFY Performed By: #### L 400.0001 ####[facility] [address] [place], [address] WBC >100 SEEN Normal 0-5 [facility] Comment on above: Order Comment: MARSHALL CTOR TO SPECIFY Performed By: #### L 400.0001 ####[facility] [address] [place], [address] Mucus Ql (Urine sed) 0 SEEN Normal [facility] Comment on above: Order Comment: MARSHALL CTOR TO SPECIFY Performed By: #### L 400.0001 ####[facility] [address] [place], [address] Urine clarityOrdered By: Robb Suarez on 03-21-2025 Clarity (U) Sl. Cloudy Clear [facility] Urine color determinationOrd ered By: Ethan Suarez on 03-21-2025 Color (U) Yellow Yellow [facility] Urine cultureOrdered By: Robb Suarez on 03-21-2025 Bacteria identified Cx Nom (U) Staphylococcus epidermidis Abnormal [facility] Urine glucose detectionOrder ed By: Ethan Suarez on 03-21-2025 Glucose Ql (U) 1000 mg/dl High Normal [facility] Urine leukocyte esterase det ection by dipstickOrdered By: Ethan Suarez on 03-21-2025 Leukocyte esterase Test strip Ql (U) 500 /ul High Negative [facility] Urine pHOrdered By: Ethan Suarez on 03-21-2025 pH (U) 7.0 [pH] 5.0 - 8.0 [facility] Urine sediment bacteria coun t by microscopy (number/high power field)Ordered By: Ethan Suarez on 03-21-2025 Bacteria LM.HPF (Urine sed) [#/Area] 1 /[HPF] None Seen [facility] Urine sediment yeast count b y microscopy (number/high powered field)Ordered By: Ethan Suarez on 03-21-2025 Yeast LM.HPF (Urine sed) [#/Area] 1 /[HPF] None Seen [facility] Urine specific gravity measu rementOrdered By: Ethan Suarez on 03-21-2025 Specific gravity (U) [Rel density] 1.010 1.002-1.030 [facility] Urine urobilinogen measureme ntOrdered By: Ethan Suarez on 03-21-2025 Urobilinogen Ql (U) Normal mg/dl Normal [facility] White blood cell (WBC) count Ordered By: Noé Currie on 03-21-2025 WBC (Bld) [#/Vol] 8.4 10*3/uL 4.4-11.0 [facility] White blood cell countOrdere d By: Ethan Suarez on 03-21-2025 White blood cell count >100 SEEN /hpf 0-5 [facility] Culture, Blood (WB)on 2024 CUB Blood cultures x2, from two different sites No growth in 5 days. Normal [facility] Comment on above: Performed By: #### L 500.4050, L300.3900, L300.4310, L100.0100, L503.6005, M200.1000 ####[facility] [address] [place], [place], [id number] Cardiovascular stress test r eportOrdered By: Se Good on 03-07-2025 Study report [facility] Work Phone: Stress Reporton 03-07-2025 Stress Report Normal [facility] Urine Cultureon 03-06-2025 URC Normal [facility] Comment on above: Performed By: #### L 400.0001, M100.2200 ####[facility] [facility] [address] [place], [address] 12 Lead EKGon 03-04-2025 12 Lead EKG Normal [facility] Abdomen/Pelvis W IV Cont ONL Yon 03-04-2025 Abdomen/Pelvis W IV Cont ONLY Normal [facility] Absolute lymphocyte countOrd ered By: Jeevan Yoder on 03-04-2025 Lymphocytes Auto (Unsp spec) [#/Vol] 1.75 10*3/uL 0.83-4.51 [facility] Activated partial thrombopla stin time (aPTT) in platelet poor plasma by coagulation aOrdered By: Jeevan Yoder on 03-04-2025 aPTT Coag (PPP) [Time] 25.2 s 24.1-36.2 [facility] Amorphous sediment detection in urine sediment by light microscopyOrdered By: Jeevan Yoder on 03-04-2025 Amorphous sediment LM Ql (Urine sed) 3+ [facility] Anion gap in Serum or Plasma Ordered By: Jeevan Yoder on 03-04-2025 Anion gap [Moles/Vol] 11 mmol/L 5-15 [facility] Automated lymphocyte count a s percentage of total leukocytesOrdered By: Jeevan Yoder on 03-04-2025 Lymphocytes/100 WBC Auto (Unsp spec) 24.2 % 19-41 [facility] BUN/creatinine ratioOrdered By: Jeevan Yoder on 03-04-2025 Urea nitrogen/Creatinine [Mass ratio] 18.1 mg/mg 10-20 [facility] Basophil percentageOrdered B y: Jeevan Yoder on 03-04-2025 Basophils/100 WBC (Bld) 0.4 % 0-1 [facility] Bilirubin Test strip Ql (U)O rdered By: Jeevan Yoder on 03-04-2025 Bilirubin Ql (U) Negative Negative [facility] Bilirubin, totalOrdered By: Jeevan Yoder on 03-04-2025 Bilirubin [Mass/Vol] 0.25 mg/dL 0.00-1.30 [facility] Blood cultureOrdered By: Maeve Yoder on 03-04-2025 Bacteria identified Cx Nom (Bld) No growth in 5 days. [facility] Bacteria identified Cx Nom (Bld) No growth in 5 days. [facility] CBC W/Diff, Automatedon 07-0 Absolute Lymph 1.75 X10 3/uL Normal 0.83-4.51 [facility] Comment on above: Performed By: #### L 500.4050, L300.3900, L300.4310, L100.0100, L503.6005, M200.1000 ####[facility] [address] [place], [address] Absolute Neut 4.8 X10 3/uL Normal 2.0-7.7 [facility] Comment on above: Performed By: #### L 500.4050, L300.3900, L300.4310, L100.0100, L503.6005, M200.1000 ####[facility] [address] [place], [address] Basophils/100 WBC (Bld) 0.4 % Normal 0-1 [facility] Comment on above: Performed By: #### L 500.4050, L300.3900, L300.4310, L100.0100, L503.6005, M200.1000 ####[facility] [address] [place], [address] Eosinophils/100 WBC (Bld) 1.7 % Normal 0-5 [facility] Comment on above: Performed By: #### L 500.4050, L300.3900, L300.4310, L100.0100, L503.6005, M200.1000 ####[facility] [address] [place], [address] Erythrocyte distribution width (RBC) [Ratio] 16.2 % High 11.6-14.6 [facility] Comment on above: Performed By: #### L 500.4050, L300.3900, L300.4310, L100.0100, L503.6005, M200.1000 ####[facility] [address] [place], [address] Hematocrit (Bld) [Volume fraction] 33.5 % Low 37-47 [facility] Comment on above: Performed By: #### L 500.4050, L300.3900, L300.4310, L100.0100, L503.6005, M200.1000 ####[facility] [address] [place], [address] Hemoglobin (Bld) [Mass/Vol] 10.1 g/dL Low 12.0-15.0 [facility] Comment on above: Performed By: #### L 500.4050, L300.3900, L300.4310, L100.0100, L503.6005, M200.1000 ####[facility] [address] [place], [address] IG% 0.700 Normal 0.0-0.9 [facility] Comment on above: Result Comment: IG% - Immature Granulocytes (promyelocytes, myelocytes andmetamyelocytes) > 1% indicates that a LEFT SHIFT is Present. Performed By: #### L 500.4050, L300.3900, L300.4310, L100.0100, L503.6005, M200.1000 ####[facility] [address] [place], [address] Lymphocytes/100 WBC (Bld) 24.2 % Normal 19-41 [facility] Comment on above: Performed By: #### L 500.4050, L300.3900, L300.4310, L100.0100, L503.6005, M200.1000 ####[facility] [address] [place], [address] MCH (RBC) [Entitic mass] 27.2 pg Normal 27.0-32.0 [facility] Comment on above: Performed By: #### L 500.4050, L300.3900, L300.4310, L100.0100, L503.6005, M200.1000 ####[facility] [address] [place], [address] MCHC (RBC) [Mass/Vol] 30.1 g/dL Low 32-36 [facility] Comment on above: Performed By: #### L 500.4050, L300.3900, L300.4310, L100.0100, L503.6005, M200.1000 ####[facility] [address] [place], [address] MCV (RBC) [Entitic vol] 90.3 fL Normal 81-99 [facility] Comment on above: Performed By: #### L 500.4050, L300.3900, L300.4310, L100.0100, L503.6005, M200.1000 ####[facility] [address] [place], [address] Monocytes/100 WBC (Bld) 6.9 % Normal 0-10 [facility] Comment on above: Performed By: #### L 500.4050, L300.3900, L300.4310, L100.0100, L503.6005, M200.1000 ####[facility] [address] [place], [address] Neutrophils/100 WBC (Bld) 66.1 % Normal 47-70 [facility] Comment on above: Performed By: #### L 500.4050, L300.3900, L300.4310, L100.0100, L503.6005, M200.1000 ####[facility] [address] [place], [address] Nucleated RBC (Bld) [#/Vol] 0 10*3/uL Normal 0-5 [facility] Comment on above: Performed By: #### L 500.4050, L300.3900, L300.4310, L100.0100, L503.6005, M200.1000 ####[facility] [address] [place], [address] Platelet mean volume (Bld) [Entitic vol] 10.6 fL Normal 6.2-12.0 [facility] Comment on above: Performed By: #### L 500.4050, L300.3900, L300.4310, L100.0100, L503.6005, M200.1000 ####[facility] [address] [place], [address] Platelets (Bld) [#/Vol] 334 10*3/uL Normal 150-450 [facility] Comment on above: Performed By: #### L 500.4050, L300.3900, L300.4310, L100.0100, L503.6005, M200.1000 ####[facility] [address] [place], [address] RBC (Bld) [#/Vol] 3.71 10*6/uL Low 4.2-5.4 [facility] Comment on above: Performed By: #### L 500.4050, L300.3900, L300.4310, L100.0100, L503.6005, M200.1000 ####[facility] [address] [place], [address] RDW SD 52.9 fl High 35.1-43.9 [facility] Comment on above: Performed By: #### L 500.4050, L300.3900, L300.4310, L100.0100, L503.6005, M200.1000 ####[facility] [address] [place], [address] WBC (Bld) [#/Vol] 7.2 10*3/uL Normal 4.4-11.0 [facility] Comment on above: Performed By: #### L 500.4050, L300.3900, L300.4310, L100.0100, L503.6005, M200.1000 ####[facility] [address] [place], [address] Carbon dioxide, total [Moles /volume] in Central venous bloodOrdered By: Jeevan Yoder on 03-04-2025 CO2 [Moles/Vol] 29.0 mmol/L 21.0-32.0 [facility] Chloride assayOrdered By: Kenny Yoder on 03-04-2025 Chloride [Moles/Vol] 97 mmol/L Low 98-108 [facility] Comprehensive Metabolic Prof ilon 03-04-2025 Albumin [Mass/Vol] 3.3 g/dL Low 3.4-4.8 [facility] Comment on above: Performed By: #### L 500.4050, L300.3900, L300.4310, L100.0100, L503.6005, M200.1000 ####[facility] [address] [place], [address] Albumin/Globulin [Mass ratio] 0.9 {ratio} Normal 0.9-2.4 [facility] Comment on above: Performed By: #### L 500.4050, L300.3900, L300.4310, L100.0100, L503.6005, M200.1000 ####[facility] [address] [place], [address] ALK PHOS 79 U/L Normal 35-104 [facility] Comment on above: Performed By: #### L 500.4050, L300.3900, L300.4310, L100.0100, L503.6005, M200.1000 ####[facility] [address] [place], [address] ALT [Catalytic activity/Vol] 25 U/L Normal <=34 [facility] Comment on above: Performed By: #### L 500.4050, L300.3900, L300.4310, L100.0100, L503.6005, M200.1000 ####[facility] [address] [place], [address] AST [Catalytic activity/Vol] 26 U/L Normal <=31 [facility] Comment on above: Performed By: #### L 500.4050, L300.3900, L300.4310, L100.0100, L503.6005, M200.1000 ####[facility] [address] [place], [address] Bilirubin [Mass/Vol] 0.25 mg/dL Normal 0.00-1.30 [facility] Comment on above: Performed By: #### L 500.4050, L300.3900, L300.4310, L100.0100, L503.6005, M200.1000 ####[facility] [address] [place], [address] BUN/CRE 18.1 RATIO Normal 10-20 [facility] Comment on above: Performed By: #### L 500.4050, L300.3900, L300.4310, L100.0100, L503.6005, M200.1000 ####[facility] [address] [place], [address] Calcium [Mass/Vol] 10.7 mg/dL Normal 7.6-11.0 [facility] Comment on above: Performed By: #### L 500.4050, L300.3900, L300.4310, L100.0100, L503.6005, M200.1000 ####[facility] [address] [place], [address] Chloride [Moles/Vol] 97 mmol/L Low 98-108 [facility] Comment on above: Performed By: #### L 500.4050, L300.3900, L300.4310, L100.0100, L503.6005, M200.1000 ####[facility] [address] [place], [address] CO2 [Moles/Vol] 29.0 mmol/L Normal 21.0-32.0 [facility] Comment on above: Performed By: #### L 500.4050, L300.3900, L300.4310, L100.0100, L503.6005, M200.1000 ####[facility] [address] [place], [address] Creatinine [Mass/Vol] 1.29 mg/dL High 0.70-1.20 [facility] Comment on above: Performed By: #### L 500.4050, L300.3900, L300.4310, L100.0100, L503.6005, M200.1000 ####[facility] [address] [place], [address] ECRCL 32.46 ml/min Low 50-250 [facility] Comment on above: Performed By: #### L 500.4050, L300.3900, L300.4310, L100.0100, L503.6005, M200.1000 ####[facility] [address] [place], [address] GAP 11 Normal 5-15 [facility] Comment on above: Performed By: #### L 500.4050, L300.3900, L300.4310, L100.0100, L503.6005, M200.1000 ####[facility] [address] [place], [address] GFR/1.73 sq M.predicted among non-blacks MDRD (S/P/Bld) [Vol rate/Area] 42 mL/min/{1.73_m2} Low >60 [facility] Comment on above: Result Comment: mL/m in/1.73m2 CKD-EPI Creatinine Equation (2020) Performed By: #### L 500.4050, L300.3900, L300.4310, L100.0100, L503.6005, M200.1000 ####[facility] [address] [place], [address] Globulin (S) [Mass/Vol] 3.6 g/dL Normal 2.2-4.2 [facility] Comment on above: Performed By: #### L 500.4050, L300.3900, L300.4310, L100.0100, L503.6005, M200.1000 ####[facility] [address] [place], [address] Glucose [Mass/Vol] 116 mg/dL High 70-99 [facility] Comment on above: Performed By: #### L 500.4050, L300.3900, L300.4310, L100.0100, L503.6005, M200.1000 ####[facility] [address] [place], [address] Potassium [Moles/Vol] 5.0 mmol/L Normal 3.3-5.1 [facility] Comment on above: Performed By: #### L 500.4050, L300.3900, L300.4310, L100.0100, L503.6005, M200.1000 ####[facility] [address] [place], [address] Sodium [Moles/Vol] 136 mmol/L Normal 133-145 [facility] Comment on above: Performed By: #### L 500.4050, L300.3900, L300.4310, L100.0100, L503.6005, M200.1000 ####[facility] [address] [place], [address] T PROT 6.9 g/dL Normal 5.9-8.4 [facility] Comment on above: Performed By: #### L 500.4050, L300.3900, L300.4310, L100.0100, L503.6005, M200.1000 ####[facility] [address] [place], [address] Urea nitrogen [Mass/Vol] 23 mg/dL High 4-19 [facility] Comment on above: Performed By: #### L 500.4050, L300.3900, L300.4310, L100.0100, L503.6005, M200.1000 ####[facility] [address] [place], [place], [id number] Emergency Department Summary on 03-04-2025 Emergency Department Summary Normal [facility] Eosinophil percentageOrdered By: Jeevan Yoder on 03-04-2025 Eosinophils/100 WBC (Bld) 1.7 % 0-5 [facility] Erythrocyte distribution wid th ratioOrdered By: Jeevan Yoder on 03-04-2025 Erythrocyte distribution width (RBC) [Ratio] 16.2 % High 11.6-14.6 [facility] Erythrocyte distribution wid th standard deviationOrdered By: Jeevan Yoder on 03-04-2025 Erythrocyte distribution width (RBC) [Ratio] 52.9 fl High 35.1-43.9 [facility] Glomerular filtration rate ( GFR) estimation/1.73 sq m using serum, plasma, or whole bOrdered By: Jeevan Yoder on 03-04-2025 GFR/1.73 sq M.predicted among non-blacks MDRD (S/P/Bld) [Vol rate/Area] 42 mL/min/{1.73_m2} Low >60 [facility] Hematocrit Auto (Bld) [Volum e fraction]Ordered By: Jeevan Yoder on 03-04-2025 Hematocrit (Bld) [Volume fraction] 33.5 % Low 37-47 [facility] Hemoglobin measurementOrdere d By: Jeevan Yoder on 03-04-2025 Hemoglobin (Bld) [Mass/Vol] 10.1 g/dL Low 12.0-15.0 [facility] Immature granulocytes/100 WB C Auto (Bld)Ordered By: Jeevan Yoder on 03-04-2025 Immature granulocytes/100 WBC (Bld) 0.700 % 0.0-0.9 [facility] Ketones Test strip Ql (U)Ord ered By: Jeevan Yoder on 03-04-2025 Ketones Ql (U) 5 mg/dl High Negative [facility] Lactic Acidon 03-04-2025 Lactate [Moles/Vol] 2.0 mmol/L Normal 0.0-2.0 [facility] Comment on above: Order Comment: Y Result Comment: Crit ical Result(s) Called at: 2056 by:??ARCHIE LOVE Results read back by same. Performed By: #### L 500.4050, L300.3900, L300.4310, L100.0100, L503.6005, M200.1000 ####[facility] [address] [facility] [place], [address] MCV (mean corpuscular volume ) determinationOrdered By: Jeevan Yoder on 03-04-2025 MCV (RBC) [Entitic vol] 90.3 fL 81-99 [facility] Mean corpuscular hemoglobin (MCH) determinationOrdered By: Jeevan Yoder on 03-04-2025 MCH (RBC) [Entitic mass] 27.2 pg 27.0-32.0 [facility] Monocyte percentageOrdered B y: Jeevan Yoder on 03-04-2025 Monocytes/100 WBC (Bld) 6.9 % 0-10 [facility] Mucus LM Ql (Urine sed)Order ed By: Jeevan Yoder on 03-04-2025 Mucus Ql (Urine sed) 0 SEEN /hpf [facility] Neutrophil percentageOrdered By: Jeevan Yoder on 03-04-2025 Neutrophils/100 WBC (Bld) 66.1 % 47-70 [facility] Nitrite Test strip Ql (U)Ord ered By: Jeevan Yoder on 03-04-2025 Nitrite Ql (U) Negative Negative [facility] No Panel InformationOrdered By: Jeevan Yoder on 03-04-2025 26 U/L <32 [facility] Partial Thromboplast Timeon 03-04-2025 aPTT Coag (Bld) [Time] 25.2 s Normal 24.1-36.2 [facility] Comment on above: Performed By: #### L 500.4050, L300.3900, L300.4310, L100.0100, L503.6005, M200.1000 ####[facility] [address] [place], [address] Platelet countOrdered By: Kenny Yoder on 03-04-2025 Platelets (Bld) [#/Vol] 334 10*3/uL 150-450 [facility] Potassium measurement (mass/ volume)Ordered By: Jeevan Yoder on 03-04-2025 Potassium (Unsp spec) [Mass/Vol] 5.0 mmol/L 3.3-5.1 [facility] Protein Test strip Ql (U)Ord ered By: Jeevan Yoder on 03-04-2025 Protein Ql (U) 100 mg/dl High Negative [facility] Prothrombin Time w/INRon INR Coag (PPP) [Relative time] 1.0 {INR} Normal [facility] Comment on above: Performed By: #### L 500.4050, L300.3900, L300.4310, L100.0100, L503.6005, M200.1000 ####[facility] [address] [place], [address] PT Coag (PPP) [Time] 13.8 s Normal 11.7-14.9 [facility] Comment on above: Performed By: #### L 500.4050, L300.3900, L300.4310, L100.0100, L503.6005, M200.1000 ####[facility] [address] [place], [address] Prothrombin timeOrdered By: Jeevan Yoder on 03-04-2025 PT Coag (PPP) [Time] 13.8 s 11.7-14.9 [facility] RBC Auto (Bld) [#/Vol]Ordere d By: Jeevan Yoder on 03-04-2025 RBC (Bld) [#/Vol] 3.71 10*6/uL Low 4.2-5.4 [facility] Serum creatinine measurement (mass/volume)Ordered By: Jeevan Yoder on 03-04-2025 Creatinine [Mass/Vol] 1.29 mg/dL High 0.70-1.20 [facility] Serum globulin measurementOr dered By: Jeevan Yoder on 03-04-2025 Globulin (S) [Mass/Vol] 3.6 g/dL 2.2-4.2 [facility] Serum glucose measurement (m ass/volume)Ordered By: Jeevan Yoder on 03-04-2025 Glucose [Mass/Vol] 116 mg/dL High 70-99 [facility] Serum or plasma alanine kelley otransferase (ALT) measurementOrdered By: Jeevan Yoder on 03-04-2025 ALT [Catalytic activity/Vol] 25 U/L <35 [facility] Serum or plasma albumin melanie urement (mass/volume)Ordered By: Jeevan Yoder on 03-04-2025 Albumin [Mass/Vol] 3.3 g/dL Low 3.4-4.8 [facility] Serum or plasma albumin/glob ulin mass ratioOrdered By: Jeevan Yoder on 03-04-2025 Albumin/Globulin [Mass ratio] 0.9 {ratio} 0.9-2.4 [facility] Serum or plasma alkaline lissa sphatase measurementOrdered By: Jeevan Yoder on 03-04-2025 ALP [Catalytic activity/Vol] 79 U/L 35-104 [facility] Serum or plasma calcium melanie urement (mass/volume)Ordered By: Jeevan Yoder on 03-04-2025 Calcium [Mass/Vol] 10.7 mg/dL 7.6-11.0 [facility] Serum or plasma urea nitroge n measurement (mass/volume)Ordered By: Jeevan Yoder on 03-04-2025 Urea nitrogen [Mass/Vol] 23 mg/dL High 4-19 [facility] Sodium levelOrdered By: Marcelino Yoder on 03-04-2025 Sodium [Moles/Vol] 136 mmol/L 133-145 [facility] Squamous epithelial cells de tection in urine sediment by light microscopyOrdered By: Jeevan Yoder on 03-04-2025 Epithelial cells.squamous LM Ql (Urine sed) 0-5 SEEN /hpf 5-10 [facility] Total proteinOrdered By: Maeve Yoder on 03-04-2025 Protein [Mass/Vol] 6.9 g/dL 5.9-8.4 [facility] Urinalysis, Completeon 03-04 BACTERIA 4+ /hpf Normal None Seen [facility] Comment on above: Order Comment: MARSHALL CTOR TO SPECIFY Performed By: #### L 400.0001, M100.2200 ####[facility] [address] [place], [address] EPI,SQUAMOUS 0-5 SEEN Normal 5-10 [facility] Comment on above: Order Comment: MARSHALL CTOR TO SPECIFY Performed By: #### L 400.0001, M1.0 ####[facility] [address] [place], [address] RBC 0-5 SEEN Normal 0-5 [facility] Comment on above: Order Comment: MARSHALL CTOR TO SPECIFY Performed By: #### L 400.0001, M100.2200 ####[facility] [address] [place], [address] YEAST 2+ /hpf Normal None Seen [facility] Comment on above: Order Comment: MARSHALL CTOR TO SPECIFY Performed By: #### L 400.0001, M100.0 ####[facility] [address] [place], [address] AMORPHOUS 3+ Normal [facility] Comment on above: Order Comment: MARSHALL CTOR TO SPECIFY Performed By: #### L 400.0001, M100.2200 ####[facility] [address] [place], [address] WBC 25-50 SEEN Normal 0-5 [facility] Comment on above: Order Comment: COLLE CTOR TO SPECIFY Performed By: #### L 400.0001, M100.0 ####[facility] [address] [place], [address] Mucus Ql (Urine sed) 0 SEEN Normal [facility] Comment on above: Order Comment: MARSHALL CTOR TO SPECIFY Performed By: #### L 400.0001, M100.2200 ####[facility] [address] [place], [address] Urine clarityOrdered By: Maeve Yoedr on 03-04-2025 Clarity (U) Cloudy Clear [facility] Urine color determinationOrd ered By: Jeevan Yoder on 03-04-2025 Color (U) Straw Yellow [facility] Urine cultureOrdered By: Maeve Yoder on 03-04-2025 Bacteria identified Cx Nom (U) Enterococcus faecalis Abnormal [facility] Urine glucose detectionOrder ed By: Jeevan Yoder on 03-04-2025 Glucose Ql (U) 100 mg/dl High Normal [facility] Urine leukocyte esterase det ection by dipstickOrdered By: Jeevan Yoder on 03-04-2025 Leukocyte esterase Test strip Ql (U) 500 /ul High Negative [facility] Urine pHOrdered By: Jeevan rai on 03-04-2025 pH (U) 7.0 [pH] 5.0 - 8.0 [facility] Urine sediment bacteria coun t by microscopy (number/high power field)Ordered By: Jeevan Yoder on 03-04-2025 Bacteria LM.HPF (Urine sed) [#/Area] 4 /[HPF] None Seen [facility] Urine sediment yeast count b y microscopy (number/high powered field)Ordered By: Jeevan Yoder on 03-04-2025 Yeast LM.HPF (Urine sed) [#/Area] 2 /[HPF] None Seen [facility] Urine specific gravity measu rementOrdered By: Jeevan Yoder on 03-04-2025 Specific gravity (U) [Rel density] 1.010 1.002-1.030 [facility] Urine urobilinogen measureme ntOrdered By: Jeevan Yoder on 03-04-2025 Urobilinogen Ql (U) Normal mg/dl Normal [facility] White blood cell (WBC) count Ordered By: Jeevan Yoder on 03-04-2025 WBC (Bld) [#/Vol] 7.2 10*3/uL 4.4-11.0 [facility] White blood cell countOrdere d By: Jeevan Yoder on 03-04-2025 White blood cell count 25-50 SEEN /hpf 0-5 [facility] Basic Metabolic Profile (BMP )on 02-23-2025 BUN Normal 4-19 [facility] Comment on above: Result Comment: Canc elled via OM: Order cancelled - Patient discharged Performed By: #### L 500.2500, L100.0100 ####[facility] [address] [place], [address] BUN/CRE Normal 10-20 [facility] Comment on above: Result Comment: Canc elled via OM: Order cancelled - Patient discharged Performed By: #### L 500.2500, L100.0100 ####[facility] [address] [place], [address] Calcium Normal 7.6-11.0 [facility] Comment on above: Result Comment: Canc elled via OM: Order cancelled - Patient discharged Performed By: #### L 500.2500, L100.0100 ####[facility] [address] [place], [address] CL Normal 98-108 [facility] Comment on above: Result Comment: Canc elled via OM: Order cancelled - Patient discharged Performed By: #### L 500.2500, L100.0100 ####[facility] [address] [place], [address] CO2 Normal 21.0-32.0 [facility] Comment on above: Result Comment: Canc elled via OM: Order cancelled - Patient discharged Performed By: #### L 500.2500, L100.0100 ####[facility] [address] [place], [address] CREAT,SERUM Normal 0.70-1.20 [facility] Comment on above: Result Comment: Canc elled via OM: Order cancelled - Patient discharged Performed By: #### L 500.2500, L100.0100 ####[facility] [address] [place], [address] eGFR Normal >60 [facility] Comment on above: Result Comment: Canc elled via OM: Order cancelled - Patient discharged Performed By: #### L 500.2500, L100.0100 ####[facility] [address] [place], [address] GAP Normal 5-15 [facility] Comment on above: Result Comment: Canc elled via OM: Order cancelled - Patient discharged Performed By: #### L 500.2500, L100.0100 ####[facility] [address] [place], [address] GLU Normal 70-99 [facility] Comment on above: Result Comment: Canc elled via OM: Order cancelled - Patient discharged Performed By: #### L 500.2500, L100.0100 ####[facility] [address] [place], [address] Potassium Normal 3.3-5.1 [facility] Comment on above: Result Comment: Canc elled via OM: Order cancelled - Patient discharged Performed By: #### L 500.2500, L100.0100 ####[facility] [address] [place], [address] Basic Metabolic Profile (BMP) Normal 133-145 [facility] Comment on above: Result Comment: Canc elled via OM: Order cancelled - Patient discharged Performed By: #### L 500.2500, L100.0100 ####[facility] [address] [place], [address] CBC W/Diff, Automatedon 06-2 Absolute Neut Normal 2.0-7.7 [facility] Comment on above: Result Comment: Canc elled via OM: Order cancelled - Patient discharged Performed By: #### L 500.2500, L100.0100 ####[facility] [address] [place], [address] HCT Normal 37-47 [facility] Comment on above: Result Comment: Canc elled via OM: Order cancelled - Patient discharged Performed By: #### L 500.2500, L100.0100 ####[facility] [address] [place], [address] HGB Normal 12.0-15.0 [facility] Comment on above: Result Comment: Canc elled via OM: Order cancelled - Patient discharged Performed By: #### L 500.2500, L100.0100 ####[facility] [address] [place], [address] MCH Normal 27.0-32.0 [facility] Comment on above: Result Comment: Canc elled via OM: Order cancelled - Patient discharged Performed By: #### L 500.2500, L100.0100 ####[facility] [address] [place], [address] MCHC Normal 32-36 [facility] Comment on above: Result Comment: Canc elled via OM: Order cancelled - Patient discharged Performed By: #### L 500.2500, L100.0100 ####[facility] [address] [place], [address] MCV Normal 81-99 [facility] Comment on above: Result Comment: Canc elled via OM: Order cancelled - Patient discharged Performed By: #### L 500.2500, L100.0100 ####[facility] [address] [place], [address] NEUT% Normal 47-70 [facility] Comment on above: Result Comment: Canc elled via OM: Order cancelled - Patient discharged Performed By: #### L 500.2500, L100.0100 ####[facility] [address] [place], [address] PLT Normal 150-450 [facility] Comment on above: Result Comment: Canc elled via OM: Order cancelled - Patient discharged Performed By: #### L 500.2500, L100.0100 ####[facility] [address] [place], [address] RBC Normal 4.2-5.4 [facility] Comment on above: Result Comment: Canc elled via OM: Order cancelled - Patient discharged Performed By: #### L 500.2500, L100.0100 ####[facility] [address] [place], [address] RDW CV Normal 11.6-14.6 [facility] Comment on above: Result Comment: Canc elled via OM: Order cancelled - Patient discharged Performed By: #### L 500.2500, L100.0100 ####[facility] [address] [place], [address] RDW SD Normal 35.1-43.9 [facility] Comment on above: Result Comment: Canc elled via OM: Order cancelled - Patient discharged Performed By: #### L 500.2500, L100.0100 ####[facility] [address] [place], [address] WBC Normal 4.4-11.0 [facility] Comment on above: Result Comment: Canc elled via OM: Order cancelled - Patient discharged Performed By: #### L 500.2500, L100.0100 ####[facility] [address] [place], [address] Basic Metabolic Profile (BMP )on 02-22-2025 BUN Normal 4-19 [facility] Comment on above: Result Comment: Canc elled via OM: Order cancelled - Patient discharged Performed By: #### L 500.2500, L100.0100 ####[facility] [address] [place], [address] BUN/CRE Normal 10-20 [facility] Comment on above: Result Comment: Canc elled via OM: Order cancelled - Patient discharged Performed By: #### L 500.2500, L100.0100 ####[facility] [address] [place], [address] Calcium Normal 7.6-11.0 [facility] Comment on above: Result Comment: Canc elled via OM: Order cancelled - Patient discharged Performed By: #### L 500.2500, L100.0100 ####[facility] [address] [place], [address] CL Normal 98-108 [facility] Comment on above: Result Comment: Canc elled via OM: Order cancelled - Patient discharged Performed By: #### L 500.2500, L100.0100 ####[facility] [address] [place], [address] CO2 Normal 21.0-32.0 [facility] Comment on above: Result Comment: Canc elled via OM: Order cancelled - Patient discharged Performed By: #### L 500.2500, L100.0100 ####[facility] [address] [place], [address] CREAT,SERUM Normal 0.70-1.20 [facility] Comment on above: Result Comment: Canc elled via OM: Order cancelled - Patient discharged Performed By: #### L 500.2500, L100.0100 ####[facility] [address] [place], [address] eGFR Normal >60 [facility] Comment on above: Result Comment: Canc elled via OM: Order cancelled - Patient discharged Performed By: #### L 500.2500, L100.0100 ####[facility] [address] [place], [address] GAP Normal 5-15 [facility] Comment on above: Result Comment: Canc elled via OM: Order cancelled - Patient discharged Performed By: #### L 500.2500, L100.0100 ####[facility] [address] [place], [address] GLU Normal 70-99 [facility] Comment on above: Result Comment: Canc elled via OM: Order cancelled - Patient discharged Performed By: #### L 500.2500, L100.0100 ####[facility] [address] [place], [address] Potassium Normal 3.3-5.1 [facility] Comment on above: Result Comment: Canc elled via OM: Order cancelled - Patient discharged Performed By: #### L 500.2500, L100.0100 ####[facility] [address] [place], [address] Basic Metabolic Profile (BMP) Normal 133-145 [facility] Comment on above: Result Comment: Canc elled via OM: Order cancelled - Patient discharged Performed By: #### L 500.2500, L100.0100 ####[facility] [address] [place], [address] CBC W/Diff, Automatedon 06-2 Absolute Neut Normal 2.0-7.7 [facility] Comment on above: Result Comment: Canc elled via OM: Order cancelled - Patient discharged Performed By: #### L 500.2500, L100.0100 ####[facility] [address] [place], [address] HCT Normal 37-47 [facility] Comment on above: Result Comment: Canc elled via OM: Order cancelled - Patient discharged Performed By: #### L 500.2500, L100.0100 ####[facility] [address] [place], [address] HGB Normal 12.0-15.0 [facility] Comment on above: Result Comment: Canc elled via OM: Order cancelled - Patient discharged Performed By: #### L 500.2500, L100.0100 ####[facility] [address] [place], [address] MCH Normal 27.0-32.0 [facility] Comment on above: Result Comment: Canc elled via OM: Order cancelled - Patient discharged Performed By: #### L 500.2500, L100.0100 ####[facility] [address] [place], [address] MCHC Normal 32-36 [facility] Comment on above: Result Comment: Canc elled via OM: Order cancelled - Patient discharged Performed By: #### L 500.2500, L100.0100 ####[facility] [address] [place], [address] MCV Normal 81-99 [facility] Comment on above: Result Comment: Canc elled via OM: Order cancelled - Patient discharged Performed By: #### L 500.2500, L100.0100 ####[facility] [address] [place], [address] NEUT% Normal 47-70 [facility] Comment on above: Result Comment: Canc elled via OM: Order cancelled - Patient discharged Performed By: #### L 500.2500, L100.0100 ####[facility] [address] [place], [address] PLT Normal 150-450 [facility] Comment on above: Result Comment: Canc elled via OM: Order cancelled - Patient discharged Performed By: #### L 500.2500, L100.0100 ####[facility] [address] [place], [address] RBC Normal 4.2-5.4 [facility] Comment on above: Result Comment: Canc elled via OM: Order cancelled - Patient discharged Performed By: #### L 500.2500, L100.0100 ####[facility] [address] [place], [address] RDW CV Normal 11.6-14.6 [facility] Comment on above: Result Comment: Canc elled via OM: Order cancelled - Patient discharged Performed By: #### L 500.2500, L100.0100 ####[facility] [address] [place], [address] RDW SD Normal 35.1-43.9 [facility] Comment on above: Result Comment: Canc elled via OM: Order cancelled - Patient discharged Performed By: #### L 500.2500, L100.0100 ####[facility] [address] [place], [address] WBC Normal 4.4-11.0 [facility] Comment on above: Result Comment: Canc elled via OM: Order cancelled - Patient discharged Performed By: #### L 500.2500, L100.0100 ####[facility] [address] [place], [address] Basic Metabolic Profile (BMP )on 02-21-2025 BUN Normal 4-19 [facility] Comment on above: Result Comment: Canc elled via OM: Order cancelled - Patient discharged Performed By: #### L 500.2500, L100.0100 ####[facility] [address] [place], [address] BUN/CRE Normal 10-20 [facility] Comment on above: Result Comment: Canc elled via OM: Order cancelled - Patient discharged Performed By: #### L 500.2500, L100.0100 ####[facility] [address] [place], [address] Calcium Normal 7.6-11.0 [facility] Comment on above: Result Comment: Canc elled via OM: Order cancelled - Patient discharged Performed By: #### L 500.2500, L100.0100 ####[facility] [address] [place], [address] CL Normal 98-108 [facility] Comment on above: Result Comment: Canc elled via OM: Order cancelled - Patient discharged Performed By: #### L 500.2500, L100.0100 ####[facility] [address] [place], [address] CO2 Normal 21.0-32.0 [facility] Comment on above: Result Comment: Canc elled via OM: Order cancelled - Patient discharged Performed By: #### L 500.2500, L100.0100 ####[facility] [address] [place], [address] CREAT,SERUM Normal 0.70-1.20 [facility] Comment on above: Result Comment: Canc elled via OM: Order cancelled - Patient discharged Performed By: #### L 500.2500, L100.0100 ####[facility] [address] [place], [address] eGFR Normal >60 [facility] Comment on above: Result Comment: Canc elled via OM: Order cancelled - Patient discharged Performed By: #### L 500.2500, L100.0100 ####[facility] [address] [place], [address] GAP Normal 5-15 [facility] Comment on above: Result Comment: Canc elled via OM: Order cancelled - Patient discharged Performed By: #### L 500.2500, L100.0100 ####[facility] [address] [place], [address] GLU Normal 70-99 [facility] Comment on above: Result Comment: Canc elled via OM: Order cancelled - Patient discharged Performed By: #### L 500.2500, L100.0100 ####[facility] [address] [place], [address] Potassium Normal 3.3-5.1 [facility] Comment on above: Result Comment: Canc elled via OM: Order cancelled - Patient discharged Performed By: #### L 500.2500, L100.0100 ####[facility] [address] [place], [address] Basic Metabolic Profile (BMP) Normal 133-145 [facility] Comment on above: Result Comment: Canc elled via OM: Order cancelled - Patient discharged Performed By: #### L 500.2500, L100.0100 ####[facility] [address] [place], [address] CBC W/Diff, Automatedon 06-2 Absolute Neut Normal 2.0-7.7 [facility] Comment on above: Result Comment: Canc elled via OM: Order cancelled - Patient discharged Performed By: #### L 500.2500, L100.0100 ####[facility] [address] [place], [address] HCT Normal 37-47 [facility] Comment on above: Result Comment: Canc elled via OM: Order cancelled - Patient discharged Performed By: #### L 500.2500, L100.0100 ####[facility] [address] [place], [address] HGB Normal 12.0-15.0 [facility] Comment on above: Result Comment: Canc elled via OM: Order cancelled - Patient discharged Performed By: #### L 500.2500, L100.0100 ####[facility] [address] [place], [address] MCH Normal 27.0-32.0 [facility] Comment on above: Result Comment: Canc elled via OM: Order cancelled - Patient discharged Performed By: #### L 500.2500, L100.0100 ####[facility] [address] [place], [address] MCHC Normal 32-36 [facility] Comment on above: Result Comment: Canc elled via OM: Order cancelled - Patient discharged Performed By: #### L 500.2500, L100.0100 ####[facility] [address] [place], [address] MCV Normal 81-99 [facility] Comment on above: Result Comment: Canc elled via OM: Order cancelled - Patient discharged Performed By: #### L 500.2500, L100.0100 ####[facility] [address] [place], [address] NEUT% Normal 47-70 [facility] Comment on above: Result Comment: Canc elled via OM: Order cancelled - Patient discharged Performed By: #### L 500.2500, L100.0100 ####[facility] [address] [place], [address] PLT Normal 150-450 [facility] Comment on above: Result Comment: Canc elled via OM: Order cancelled - Patient discharged Performed By: #### L 500.2500, L100.0100 ####[facility] [address] [place], [address] RBC Normal 4.2-5.4 [facility] Comment on above: Result Comment: Canc elled via OM: Order cancelled - Patient discharged Performed By: #### L 500.2500, L100.0100 ####[facility] [address] [place], [address] RDW CV Normal 11.6-14.6 [facility] Comment on above: Result Comment: Canc elled via OM: Order cancelled - Patient discharged Performed By: #### L 500.2500, L100.0100 ####[facility] [address] [place], [address] RDW SD Normal 35.1-43.9 [facility] Comment on above: Result Comment: Canc elled via OM: Order cancelled - Patient discharged Performed By: #### L 500.2500, L100.0100 ####[facility] [address] [place], [address] WBC Normal 4.4-11.0 [facility] Comment on above: Result Comment: Canc elled via OM: Order cancelled - Patient discharged Performed By: #### L 500.2500, L100.0100 ####[facility] [address] [place], [address] Basic Metabolic Profile (BMP )on 02-20-2025 BUN Normal 4-19 [facility] Comment on above: Result Comment: Canc elled via OM: Order cancelled - Patient discharged Performed By: #### L 100.0100, L500.2500 ####[facility] [address] [place], [address] BUN/CRE Normal 10-20 [facility] Comment on above: Result Comment: Canc elled via OM: Order cancelled - Patient discharged Performed By: #### L 100.0100, L500.2500 ####[facility] [address] [place], [address] Calcium Normal 7.6-11.0 [facility] Comment on above: Result Comment: Canc elled via OM: Order cancelled - Patient discharged Performed By: #### L 100.0100, L500.2500 ####[facility] [address] [place], [address] CL Normal 98-108 [facility] Comment on above: Result Comment: Canc elled via OM: Order cancelled - Patient discharged Performed By: #### L 100.0100, L500.2500 ####[facility] [address] [place], [address] CO2 Normal 21.0-32.0 [facility] Comment on above: Result Comment: Canc elled via OM: Order cancelled - Patient discharged Performed By: #### L 100.0100, L500.2500 ####[facility] [address] [place], [address] CREAT,SERUM Normal 0.70-1.20 [facility] Comment on above: Result Comment: Canc elled via OM: Order cancelled - Patient discharged Performed By: #### L 100.0100, L500.2500 ####[facility] [address] [place], [address] eGFR Normal >60 [facility] Comment on above: Result Comment: Canc elled via OM: Order cancelled - Patient discharged Performed By: #### L 100.0100, L500.2500 ####[facility] [address] [place], [address] GAP Normal 5-15 [facility] Comment on above: Result Comment: Canc elled via OM: Order cancelled - Patient discharged Performed By: #### L 100.0100, L500.2500 ####[facility] [address] [place], [address] GLU Normal 70-99 [facility] Comment on above: Result Comment: Canc elled via OM: Order cancelled - Patient discharged Performed By: #### L 100.0100, L500.2500 ####[facility] [address] [place], [address] Potassium Normal 3.3-5.1 [facility] Comment on above: Result Comment: Canc elled via OM: Order cancelled - Patient discharged Performed By: #### L 100.0100, L500.2500 ####[facility] [address] [place], [address] Basic Metabolic Profile (BMP) Normal 133-145 [facility] Comment on above: Result Comment: Canc elled via OM: Order cancelled - Patient discharged Performed By: #### L 100.0100, L500.2500 ####[facility] [address] [place], [address] Bedside Glucoseon 02-20-2025 FINGERSTICK GLU 385 mg/dL High 74-106 [facility] Comment on above: Result Comment: KATARINA GEMENT OF PATIENT CARE PER NURSING PROTOCOL Performed By: #### L 501.080 ####[facility] [address] [place], [address] FINGERSTICK GLU 419 mg/dL High 74-106 [facility] Comment on above: Result Comment: KATARINA GEMENT OF PATIENT CARE PER NURSING PROTOCOL Performed By: #### L 501.080 ####[facility] [address] [place], [address] CBC W/Diff, Automatedon 01-30 Absolute Neut Normal 2.0-7.7 [facility] Comment on above: Result Comment: Canc elled via OM: Order cancelled - Patient discharged Performed By: #### L 100.0100, L500.2500 ####[facility] [address] [place], [address] HCT Normal 37-47 [facility] Comment on above: Result Comment: Canc elled via OM: Order cancelled - Patient discharged Performed By: #### L 100.0100, L500.2500 ####[facility] [address] [place], [address] HGB Normal 12.0-15.0 [facility] Comment on above: Result Comment: Canc elled via OM: Order cancelled - Patient discharged Performed By: #### L 100.0100, L500.2500 ####[facility] [address] [place], [address] MCH Normal 27.0-32.0 [facility] Comment on above: Result Comment: Canc elled via OM: Order cancelled - Patient discharged Performed By: #### L 100.0100, L500.2500 ####[facility] [address] [place], [address] MCHC Normal 32-36 [facility] Comment on above: Result Comment: Canc elled via OM: Order cancelled - Patient discharged Performed By: #### L 100.0100, L500.2500 ####[facility] [address] [place], [address] MCV Normal 81-99 [facility] Comment on above: Result Comment: Canc elled via OM: Order cancelled - Patient discharged Performed By: #### L 100.0100, L500.2500 ####[facility] [address] [place], [address] NEUT% Normal 47-70 [facility] Comment on above: Result Comment: Canc elled via OM: Order cancelled - Patient discharged Performed By: #### L 100.0100, L500.2500 ####[facility] [address] [place], [address] PLT Normal 150-450 [facility] Comment on above: Result Comment: Canc elled via OM: Order cancelled - Patient discharged Performed By: #### L 100.0100, L500.2500 ####[facility] [address] [place], [address] RBC Normal 4.2-5.4 [facility] Comment on above: Result Comment: Canc elled via OM: Order cancelled - Patient discharged Performed By: #### L 100.0100, L500.2500 ####[facility] [address] [place], [address] RDW CV Normal 11.6-14.6 [facility] Comment on above: Result Comment: Canc elled via OM: Order cancelled - Patient discharged Performed By: #### L 100.0100, L500.2500 ####[facility] [address] [place], [address] RDW SD Normal 35.1-43.9 [facility] Comment on above: Result Comment: Canc elled via OM: Order cancelled - Patient discharged Performed By: #### L 100.0100, L500.2500 ####[facility] [address] [place], [address] WBC Normal 4.4-11.0 [facility] Comment on above: Result Comment: Canc elled via OM: Order cancelled - Patient discharged Performed By: #### L 100.0100, L500.2500 ####[facility] [address] [place], [address] Basic Metabolic Profile (BMP )on 02-19-2025 BUN Normal 4-19 [facility] Comment on above: Result Comment: Canc elled via OM: Order cancelled - Patient discharged Performed By: #### L 500.2500, L100.0100 ####[facility] [address] [place], [address] BUN/CRE Normal 10-20 [facility] Comment on above: Result Comment: Canc elled via OM: Order cancelled - Patient discharged Performed By: #### L 500.2500, L100.0100 ####[facility] [address] [place], [address] Calcium Normal 7.6-11.0 [facility] Comment on above: Result Comment: Canc elled via OM: Order cancelled - Patient discharged Performed By: #### L 500.2500, L100.0100 ####[facility] [address], [address] CL Normal 98-108 [facility] Comment on above: Result Comment: Canc elled via OM: Order cancelled - Patient discharged Performed By: #### L 500.2500, L100.0100 ####[facility] [address] [place], [address] CO2 Normal 21.0-32.0 [facility] Comment on above: Result Comment: Canc elled via OM: Order cancelled - Patient discharged Performed By: #### L 500.2500, L100.0100 ####[facility] [address] [place], [address] CREAT,SERUM Normal 0.70-1.20 [facility] Comment on above: Result Comment: Canc elled via OM: Order cancelled - Patient discharged Performed By: #### L 500.2500, L100.0100 ####[facility] [address] [place], [address] eGFR Normal >60 [facility] Comment on above: Result Comment: Canc elled via OM: Order cancelled - Patient discharged Performed By: #### L 500.2500, L100.0100 ####[facility] [address] [place], [address] GAP Normal 5-15 [facility] Comment on above: Result Comment: Canc elled via OM: Order cancelled - Patient discharged Performed By: #### L 500.2500, L100.0100 ####[facility] [address] [place], [address] GLU Normal 70-99 [facility] Comment on above: Result Comment: Canc elled via OM: Order cancelled - Patient discharged Performed By: #### L 500.2500, L100.0100 ####[facility] [address] [place], [address] Potassium Normal 3.3-5.1 [facility] Comment on above: Result Comment: Canc elled via OM: Order cancelled - Patient discharged Performed By: #### L 500.2500, L100.0100 ####[facility] [address] [place], [address] Basic Metabolic Profile (BMP) Normal 133-145 [facility] Comment on above: Result Comment: Canc elled via OM: Order cancelled - Patient discharged Performed By: #### L 500.2500, L100.0100 ####[facility] [address] [place], [address] CBC W/Diff, Automatedon 06-2 Absolute Neut Normal 2.0-7.7 [facility] Comment on above: Result Comment: Canc elled via OM: Order cancelled - Patient discharged Performed By: #### L 500.2500, L100.0100 ####[facility] [address] [place], [address] HCT Normal 37-47 [facility] Comment on above: Result Comment: Canc elled via OM: Order cancelled - Patient discharged Performed By: #### L 500.2500, L100.0100 ####[facility] [address] [place], [address] HGB Normal 12.0-15.0 [facility] Comment on above: Result Comment: Canc elled via OM: Order cancelled - Patient discharged Performed By: #### L 500.2500, L100.0100 ####[facility] [address] [place], [address] MCH Normal 27.0-32.0 [facility] Comment on above: Result Comment: Canc elled via OM: Order cancelled - Patient discharged Performed By: #### L 500.2500, L100.0100 ####[facility] [address] [place], [address] MCHC Normal 32-36 [facility] Comment on above: Result Comment: Canc elled via OM: Order cancelled - Patient discharged Performed By: #### L 500.2500, L100.0100 ####[facility] [address] [place], [address] MCV Normal 81-99 [facility] Comment on above: Result Comment: Canc elled via OM: Order cancelled - Patient discharged Performed By: #### L 500.2500, L100.0100 ####[facility] [address] [place], [address] NEUT% Normal 47-70 [facility] Comment on above: Result Comment: Canc elled via OM: Order cancelled - Patient discharged Performed By: #### L 500.2500, L100.0100 ####[facility] [address] [place], [address] PLT Normal 150-450 [facility] Comment on above: Result Comment: Canc elled via OM: Order cancelled - Patient discharged Performed By: #### L 500.2500, L100.0100 ####[facility] [address] [place], [address] RBC Normal 4.2-5.4 [facility] Comment on above: Result Comment: Canc elled via OM: Order cancelled - Patient discharged Performed By: #### L 500.2500, L100.0100 ####[facility] [address] [place], [address] RDW CV Normal 11.6-14.6 [facility] Comment on above: Result Comment: Canc elled via OM: Order cancelled - Patient discharged Performed By: #### L 500.2500, L100.0100 ####[facility] [address] [place], [address] RDW SD Normal 35.1-43.9 [facility] Comment on above: Result Comment: Canc elled via OM: Order cancelled - Patient discharged Performed By: #### L 500.2500, L100.0100 ####[facility] [address] [place], [address] WBC Normal 4.4-11.0 [facility] Comment on above: Result Comment: Canc elled via OM: Order cancelled - Patient discharged Performed By: #### L 500.2500, L100.0100 ####[facility] [address] [place], [address] 12 Lead EKGon 02-18-2025 12 Lead EKG Normal [facility] Absolute lymphocyte countOrd ered By: Billy Kothari on 02-18-2025 Lymphocytes Auto (Unsp spec) [#/Vol] 1.53 10*3/uL 0.83-4.51 [facility] Anion gap in Serum or Plasma Ordered By: Billy Kothari on 02-18-2025 Anion gap [Moles/Vol] 11 mmol/L 5-15 [facility] Automated lymphocyte count a s percentage of total leukocytesOrdered By: Billy Kothari on 02-18-2025 Lymphocytes/100 WBC Auto (Unsp spec) 12.5 % Low 19-41 [facility] BUN/creatinine ratioOrdered By: Billy Kothari on 02-18-2025 Urea nitrogen/Creatinine [Mass ratio] 19.9 mg/mg 10-20 [facility] Basic Metabolic Profile (BMP )on 02-18-2025 BUN/CRE 19.9 RATIO Normal -20 [facility] Comment on above: Performed By: #### L 500.2500, L100.0100 ####[facility] [address] [place], [address] Calcium [Mass/Vol] 10.7 mg/dL Normal 7.6-11.0 [facility] Comment on above: Performed By: #### L 500.2500, L100.0100 ####[facility] [address] [place], [address] Chloride [Moles/Vol] 97 mmol/L Low 98-108 [facility] Comment on above: Performed By: #### L 500.2500, L100.0100 ####[facility] [address] [place], [address] CO2 [Moles/Vol] 28.1 mmol/L Normal 21.0-32.0 [facility] Comment on above: Performed By: #### L 500.2500, L100.0100 ####[facility] [address] [place], [address] Creatinine [Mass/Vol] 1.26 mg/dL High 0.70-1.20 [facility] Comment on above: Performed By: #### L 500.2500, L100.0100 ####[facility] [address] [place], [address] ECRCL 34.58 ml/min Low 50-250 [facility] Comment on above: Performed By: #### L 500.2500, L100.0100 ####[facility] [address] [place], [address] GAP 11 Normal 5-15 [facility] Comment on above: Performed By: #### L 500.2500, L100.0100 ####[facility] [address] [place], [address] GFR/1.73 sq M.predicted among non-blacks MDRD (S/P/Bld) [Vol rate/Area] 43 mL/min/{1.73_m2} Low >60 [facility] Comment on above: Result Comment: mL/m in/1.73m2 CKD-EPI Creatinine Equation (2020) Performed By: #### L 500.2500, L100.0100 ####[facility] [address] [place], [address] Glucose [Mass/Vol] 174 mg/dL High 70-99 [facility] Comment on above: Performed By: #### L 500.2500, L100.0100 ####[facility] [address] [place], [address] Potassium [Moles/Vol] 6.0 mmol/L Invalid Interpretation Code 3.3-5.1 [facility] Comment on above: Result Comment: Hemo lysis present, Results??could be affected.??Critical Result(s) Called EFINK at: 2254 by:VIET??Results read back by same.Hemolysis present, Results??could be affected.?? Performed By: #### L 500.2500, L100.0100 ####[facility] [address] [place], [address] Sodium [Moles/Vol] 136 mmol/L Normal 133-145 [facility] Comment on above: Performed By: #### L 500.2500, L100.0100 ####[facility] [address] [place], [address] Urea nitrogen [Mass/Vol] 25 mg/dL High -19 [facility] Comment on above: Performed By: #### L 500.2500, L100.0100 ####[facility] [address] [place], [address] BUN Normal -19 [facility] Comment on above: Result Comment: Canc elled via OM: Order cancelled - Patient discharged Performed By: #### L 100.0100, L500.2500 ####[facility] [address] [place], [address] BUN/CRE Normal 10-20 [facility] Comment on above: Result Comment: Canc elled via OM: Order cancelled - Patient discharged Performed By: #### L 100.0100, L500.2500 ####[facility] [address] [place], [address] Calcium Normal 7.6-11.0 [facility] Comment on above: Result Comment: Canc elled via OM: Order cancelled - Patient discharged Performed By: #### L 100.0100, L500.2500 ####[facility] [address] [place], [address] CL Normal 98-108 [facility] Comment on above: Result Comment: Canc elled via OM: Order cancelled - Patient discharged Performed By: #### L 100.0100, L500.2500 ####[facility] [address] [place], [address] CO2 Normal 21.0-32.0 [facility] Comment on above: Result Comment: Canc elled via OM: Order cancelled - Patient discharged Performed By: #### L 100.0100, L500.2500 ####[facility] [address] [place], [address] CREAT,SERUM Normal 0.70-1.20 [facility] Comment on above: Result Comment: Canc elled via OM: Order cancelled - Patient discharged Performed By: #### L 100.0100, L500.2500 ####[facility] [address] [place], [address] eGFR Normal >60 [facility] Comment on above: Result Comment: Canc elled via OM: Order cancelled - Patient discharged Performed By: #### L 100.0100, L500.2500 ####[facility] [address] [place], [address] GAP Normal 5-15 [facility] Comment on above: Result Comment: Canc elled via OM: Order cancelled - Patient discharged Performed By: #### L 100.0100, L500.2500 ####[facility] [address] [place], [address] GLU Normal 70-99 [facility] Comment on above: Result Comment: Canc elled via OM: Order cancelled - Patient discharged Performed By: #### L 100.0100, L500.2500 ####[facility] [address] [place], [address] Potassium Normal 3.3-5.1 [facility] Comment on above: Result Comment: Canc elled via OM: Order cancelled - Patient discharged Performed By: #### L 100.0100, L500.2500 ####[facility] [address] [place], [address] Basic Metabolic Profile (BMP) Normal 133-145 [facility] Comment on above: Result Comment: Canc elled via OM: Order cancelled - Patient discharged Performed By: #### L 100.0100, L500.2500 ####[facility] [address] [place], [address] Basophil percentageOrdered B y: Billy Kothari on 02-18-2025 Basophils/100 WBC (Bld) 0.2 % 0-1 [facility] CBC W/Diff, Automatedon 01-30-2024 Absolute Lymph 1.53 X10 3/uL Normal 0.83-4.51 [facility] Comment on above: Performed By: #### L 500.2500, L100.0100 ####[facility] [address] [place], [address] Absolute Neut 9.6 X10 3/uL High 2.0-7.7 [facility] Comment on above: Performed By: #### L 500.2500, L100.0100 ####[facility] [address] [place], [address] Basophils/100 WBC (Bld) 0.2 % Normal 0-1 [facility] Comment on above: Performed By: #### L 500.2500, L100.0100 ####[facility] [address] [place], [address] Eosinophils/100 WBC (Bld) 1.0 % Normal 0-5 [facility] Comment on above: Performed By: #### L 500.2500, L100.0100 ####[facility] [address] [place], [address] Erythrocyte distribution width (RBC) [Ratio] 15.9 % High 11.6-14.6 [facility] Comment on above: Performed By: #### L 500.2500, L100.0100 ####[facility] [address] [place], [address] Hematocrit (Bld) [Volume fraction] 35.8 % Low 37-47 [facility] Comment on above: Performed By: #### L 500.2500, L100.0100 ####[facility] [address] [place], [address] Hemoglobin (Bld) [Mass/Vol] 10.9 g/dL Low 12.0-15.0 [facility] Comment on above: Performed By: #### L 500.2500, L100.0100 ####[facility] [address] [place], [address] IG% 0.900 Normal 0.0-0.9 [facility] Comment on above: Result Comment: IG% - Immature Granulocytes (promyelocytes, myelocytes andmetamyelocytes) > 1% indicates that a LEFT SHIFT is Present. Performed By: #### L 500.2500, L100.0100 ####[facility] [address] [place], [address] Lymphocytes/100 WBC (Bld) 12.5 % Low 19-41 [facility] Comment on above: Performed By: #### L 500.2500, L100.0100 ####[facility] [address] [place], [address] MCH (RBC) [Entitic mass] 27.9 pg Normal 27.0-32.0 [facility] Comment on above: Performed By: #### L 500.2500, L100.0100 ####[facility] [address] [place], [address] MCHC (RBC) [Mass/Vol] 30.4 g/dL Low 32-36 [facility] Comment on above: Performed By: #### L 500.2500, L100.0100 ####[facility] [address] [place], [address] MCV (RBC) [Entitic vol] 91.6 fL Normal 81-99 [facility] Comment on above: Performed By: #### L 500.2500, L100.0100 ####[facility] [address] [place], [address] Monocytes/100 WBC (Bld) 6.7 % Normal 0-10 [facility] Comment on above: Performed By: #### L 500.2500, L100.0100 ####[facility] [address] [place], [address] Neutrophils/100 WBC (Bld) 78.7 % High 47-70 [facility] Comment on above: Performed By: #### L 500.2500, L100.0100 ####[facility] [address] [place], [address] Nucleated RBC (Bld) [#/Vol] 0 10*3/uL Normal 0-5 [facility] Comment on above: Performed By: #### L 500.2500, L100.0100 ####[facility] [address] [place], [address] Platelet mean volume (Bld) [Entitic vol] 11.5 fL Normal 6.2-12.0 [facility] Comment on above: Performed By: #### L 500.2500, L100.0100 ####[facility] [address] [place], [address] Platelets (Bld) [#/Vol] 337 10*3/uL Normal 150-450 [facility] Comment on above: Performed By: #### L 500.2500, L100.0100 ####[facility] [address] [place], [address] RBC (Bld) [#/Vol] 3.91 10*6/uL Low 4.2-5.4 [facility] Comment on above: Performed By: #### L 500.2500, L100.0100 ####[facility] [address] [place], [address] RDW SD 52.1 fl High 35.1-43.9 [facility] Comment on above: Performed By: #### L 500.2500, L100.0100 ####[facility] [address] [place], [address] WBC (Bld) [#/Vol] 12.2 10*3/uL High 4.4-11.0 [facility] Comment on above: Performed By: #### L 500.2500, L100.0100 ####[facility] [address] [place], [address] Absolute Neut Normal 2.0-7.7 [facility] Comment on above: Result Comment: Canc elled via OM: Order cancelled - Patient discharged Performed By: #### L 100.0100, L500.2500 ####[facility] [address] [place], [address] HCT Normal 37-47 [facility] Comment on above: Result Comment: Canc elled via OM: Order cancelled - Patient discharged Performed By: #### L 100.0100, L500.2500 ####[facility] [address] [place], [address] HGB Normal 12.0-15.0 [facility] Comment on above: Result Comment: Canc elled via OM: Order cancelled - Patient discharged Performed By: #### L 100.0100, L500.2500 ####[facility] [address] [place], [address] MCH Normal 27.0-32.0 [facility] Comment on above: Result Comment: Canc elled via OM: Order cancelled - Patient discharged Performed By: #### L 100.0100, L500.2500 ####[facility] [address] [place], [address] MCHC Normal 32-36 [facility] Comment on above: Result Comment: Canc elled via OM: Order cancelled - Patient discharged Performed By: #### L 100.0100, L500.2500 ####[facility] [address] [place], [address] MCV Normal 81-99 [facility] Comment on above: Result Comment: Canc elled via OM: Order cancelled - Patient discharged Performed By: #### L 100.0100, L500.2500 ####[facility] [address] [place], [address] NEUT% Normal 47-70 [facility] Comment on above: Result Comment: Canc elled via OM: Order cancelled - Patient discharged Performed By: #### L 100.0100, L500.2500 ####[facility] [address] [place], [address] PLT Normal 150-450 [facility] Comment on above: Result Comment: Canc elled via OM: Order cancelled - Patient discharged Performed By: #### L 100.0100, L500.2500 ####[facility] [address] [place], [address] RBC Normal 4.2-5.4 [facility] Comment on above: Result Comment: Canc elled via OM: Order cancelled - Patient discharged Performed By: #### L 100.0100, L500.2500 ####[facility] [address] [place], [address] RDW CV Normal 11.6-14.6 [facility] Comment on above: Result Comment: Canc elled via OM: Order cancelled - Patient discharged Performed By: #### L 100.0100, L500.2500 ####[facility] [address] [place], [address] RDW SD Normal 35.1-43.9 [facility] Comment on above: Result Comment: Canc elled via OM: Order cancelled - Patient discharged Performed By: #### L 100.0100, L500.2500 ####[facility] [address] [place], [address] WBC Normal 4.4-11.0 [facility] Comment on above: Result Comment: Canc elled via OM: Order cancelled - Patient discharged Performed By: #### L 100.0100, L500.2500 ####[facility] [address] [place], [address] Carbon dioxide, total [Moles /volume] in Central venous bloodOrdered By: Billy Kothari on 02-18-2025 CO2 [Moles/Vol] 28.1 mmol/L 21.0-32.0 [facility] Chest 1 View (Portable)on Chest 1 View (Portable) Normal [facility] Chloride assayOrdered By: Dante Kothari on 02-18-2025 Chloride [Moles/Vol] 97 mmol/L Low 98-108 [facility] Emergency Department Summary on 02-18-2025 Emergency Department Summary Normal [facility] Eosinophil percentageOrdered By: Billy Kothari on 02-18-2025 Eosinophils/100 WBC (Bld) 1.0 % 0-5 [facility] Erythrocyte distribution wid th ratioOrdered By: Billy Kothari on 02-18-2025 Erythrocyte distribution width (RBC) [Ratio] 15.9 % High 11.6-14.6 [facility] Erythrocyte distribution wid th standard deviationOrdered By: Billy Kothari on 02-18-2025 Erythrocyte distribution width (RBC) [Ratio] 52.1 fl High 35.1-43.9 [facility] Glomerular filtration rate ( GFR) estimation/1.73 sq m using serum, plasma, or whole bOrdered By: Billy Kothari on 02-18-2025 GFR/1.73 sq M.predicted among non-blacks MDRD (S/P/Bld) [Vol rate/Area] 43 mL/min/{1.73_m2} Low >60 [facility] Hematocrit Auto (Bld) [Volum e fraction]Ordered By: Billy Kothari on 02-18-2025 Hematocrit (Bld) [Volume fraction] 35.8 % Low 37-47 [facility] Hemoglobin measurementOrdere d By: Billy Kothari on 02-18-2025 Hemoglobin (Bld) [Mass/Vol] 10.9 g/dL Low 12.0-15.0 [facility] Immature granulocytes/100 WB C Auto (Bld)Ordered By: Billy Kothari on 02-18-2025 Immature granulocytes/100 WBC (Bld) 0.900 % 0.0-0.9 [facility] L503.7505on 02-18-2025 Natriuretic peptide B (Bld) [Mass/Vol] 3811 pg/mL High <=1800 [facility] Comment on above: Result Comment: Hear t Failure Unlikely: < 300 pg/mLHeart Failure Likely< 50 Years: > 450 pg/mL50-75 Years: > 900 pg/mL>75 Years: > 1800 pg/mL Performed By: #### L 503.7505 ####[facility] [address] [place], [address] MCV (mean corpuscular volume ) determinationOrdered By: Billy Kothari on 02-18-2025 MCV (RBC) [Entitic vol] 91.6 fL 81-99 [facility] Mean corpuscular hemoglobin (MCH) determinationOrdered By: Billy Kothari on 02-18-2025 MCH (RBC) [Entitic mass] 27.9 pg 27.0-32.0 [facility] Monocyte percentageOrdered B y: Billy Kothari on 02-18-2025 Monocytes/100 WBC (Bld) 6.7 % 0-10 [facility] Natriuretic peptide.B prohor hayley N-Terminal [Mass/volume] in Serum or PlasmaOrdered By: Billy Kothari on 02-18-2025 Natriuretic peptide.B prohormone N-Terminal [Mass/Vol] 3811 pg/mL High <1800 [facility] Neutrophil percentageOrdered By: Billy Kothari on 02-18-2025 Neutrophils/100 WBC (Bld) 78.7 % High 47-70 [facility] Platelet countOrdered By: Dante Kothari on 02-18-2025 Platelets (Bld) [#/Vol] 337 10*3/uL 150-450 [facility] Potassiumon 02-18-2025 Potassium [Moles/Vol] 4.7 mmol/L Normal 3.3-5.1 [facility] Comment on above: Performed By: #### L 501.5600 ####[facility] [address] [place], [place], [address] Potassium measurement (mass/ volume)Ordered By: Billy Kothari on 02-18-2025 Potassium (Unsp spec) [Mass/Vol] 4.7 mmol/L 3.3-5.1 [facility] RBC Auto (Bld) [#/Vol]Ordere d By: Billy Kothari on 02-18-2025 RBC (Bld) [#/Vol] 3.91 10*6/uL Low 4.2-5.4 [facility] Respiratory Cultureon 2024 RESPC Mixed normal respiratory karin. No Streptococcus pneumoniae, beta-hemolytic Streptococcus or Staphylococcus aureus isolated. Normal [facility] Comment on above: Performed By: #### M 100.2000, M100.2400 ####[facility] [address] [place], [place], [id number] Serum creatinine measurement (mass/volume)Ordered By: Billy Kothari on 02-18-2025 Creatinine [Mass/Vol] 1.26 mg/dL High 0.70-1.20 [facility] Serum glucose measurement (m ass/volume)Ordered By: Billy Kothari on 02-18-2025 Glucose [Mass/Vol] 174 mg/dL High 70-99 [facility] Serum or plasma calcium melanie urement (mass/volume)Ordered By: Billy Kothari on 02-18-2025 Calcium [Mass/Vol] 10.7 mg/dL 7.6-11.0 [facility] Serum or plasma urea nitroge n measurement (mass/volume)Ordered By: Billy Kothari on 02-18-2025 Urea nitrogen [Mass/Vol] 25 mg/dL High 4-19 [facility] Sodium levelOrdered By: Billy Kothari on 02-18-2025 Sodium [Moles/Vol] 136 mmol/L 133-145 [facility] White blood cell (WBC) count Ordered By: Billy Kothari on 02-18-2025 WBC (Bld) [#/Vol] 12.2 10*3/uL High 4.4-11.0 [facility] Absolute lymphocyte countOrd ered By: Heydi Amaya on 02-17-2025 Lymphocytes Auto (Unsp spec) [#/Vol] 0.58 10*3/uL Low 0.83-4.51 [facility] Anion gap in Serum or Plasma Ordered By: Heydi Amaya on 02-17-2025 Anion gap [Moles/Vol] 12 mmol/L 5-15 [facility] Automated lymphocyte count a s percentage of total leukocytesOrdered By: Heydi Amaya on 02-17-2025 Lymphocytes/100 WBC Auto (Unsp spec) 7.8 % Low 19-41 [facility] BUN/creatinine ratioOrdered By: Heydi Amaya on 02-17-2025 Urea nitrogen/Creatinine [Mass ratio] 23.0 mg/mg High 10-20 [facility] Basic Metabolic Profile (BMP )on 02-17-2025 BUN/CRE 23.0 RATIO High - [facility] Comment on above: Performed By: #### L 500.2500, L100.0100 ####[facility] [address] [place], [address] Calcium [Mass/Vol] 10.3 mg/dL Normal 7.6-11.0 [facility] Comment on above: Performed By: #### L 500.2500, L100.0100 ####[facility] [address] [place], [address] Chloride [Moles/Vol] 98 mmol/L Normal 98-108 [facility] Comment on above: Performed By: #### L 500.2500, L100.0100 ####[facility] [address] [place], [address] CO2 [Moles/Vol] 23.5 mmol/L Normal 21.0-32.0 [facility] Comment on above: Performed By: #### L 500.2500, L100.0100 ####[facility] [address] [place], [address] Creatinine [Mass/Vol] 1.15 mg/dL Normal 0.70-1.20 [facility] Comment on above: Performed By: #### L 500.2500, L100.0100 ####[facility] [address] [place], [address] ECRCL 37.29 ml/min Low 50-250 [facility] Comment on above: Performed By: #### L 500.2499, L100.0100 ####[facility] [address] [place], [address] GAP 12 Normal 5-15 [facility] Comment on above: Performed By: #### L 500.2499, L100.0100 ####[facility] [address] [place], [address] GFR/1.73 sq M.predicted among non-blacks MDRD (S/P/Bld) [Vol rate/Area] 48 mL/min/{1.73_m2} Low >60 [facility] Comment on above: Result Comment: mL/m in/1.73m2 CKD-EPI Creatinine Equation (2020) Performed By: #### L 500.2499, L100.0100 ####[facility] [address] [place], [address] Glucose [Mass/Vol] 426 mg/dL High 70-99 [facility] Comment on above: Performed By: #### L 500.2500, L100.0100 ####[facility] [address], [address] Potassium [Moles/Vol] 5.3 mmol/L High 3.3-5.1 [facility] Comment on above: Performed By: #### L 500.2500, L100.0100 ####[facility] [address] [place], [address] Sodium [Moles/Vol] 134 mmol/L Normal 133-145 [facility] Comment on above: Performed By: #### L 500.2500, L100.0100 ####[facility] [address] [place], [address] Urea nitrogen [Mass/Vol] 27 mg/dL High 4-19 [facility] Comment on above: Performed By: #### L 500.2500, L100.0100 ####[facility] [address] [place], [address] Basophil percentageOrdered B y: Heydishraddha Amaya on 02-17-2025 Basophils/100 WBC (Bld) 0.1 % 0-1 [facility] Bedside Glucoseon 02-17-2025 FINGERSTICK GLU 241 mg/dL High 74-106 [facility] Comment on above: Result Comment: KATARINA GEMENT OF PATIENT CARE PER NURSING PROTOCOL Performed By: #### L 501.080 ####[facility] [address] [place], [address] FINGERSTICK GLU 419 mg/dL High 74-106 [facility] Comment on above: Result Comment: KATARINA GEMENT OF PATIENT CARE PER NURSING PROTOCOL Performed By: #### L 501.080 ####[facility] [address] [place], [address] FINGERSTICK GLU 488 mg/dL Invalid Interpretation Code -106 [facility] Comment on above: Result Comment: KATARINA GEMENT OF PATIENT CARE PER NURSING PROTOCOL Performed By: #### L 501.080 ####[facility] [address] [place], [address] CBC W/Diff, Automatedon 01-30 Absolute Lymph 0.58 X10 3/uL Low 0.83-4.51 [facility] Comment on above: Performed By: #### L 500.2500, L100.0100 ####[facility] [address] [place], [address] Absolute Neut 6.4 X10 3/uL Normal 2.0-7.7 [facility] Comment on above: Performed By: #### L 500.2500, L100.0100 ####[facility] [address] [place], [address] Basophils/100 WBC (Bld) 0.1 % Normal 0-1 [facility] Comment on above: Performed By: #### L 500.2500, L100.0100 ####[facility] [address] [place], [address] Eosinophils/100 WBC (Bld) 0.1 % Normal 0-5 [facility] Comment on above: Performed By: #### L 500.2500, L100.0100 ####[facility] [address] [place], [address] Erythrocyte distribution width (RBC) [Ratio] 15.6 % High 11.6-14.6 [facility] Comment on above: Performed By: #### L 500.2500, L100.0100 ####[facility] [address] [place], [address] Hematocrit (Bld) [Volume fraction] 32.6 % Low 37-47 [facility] Comment on above: Performed By: #### L 500.2500, L100.0100 ####[facility] [address] [place], [address] Hemoglobin (Bld) [Mass/Vol] 9.9 g/dL Low 12.0-15.0 [facility] Comment on above: Performed By: #### L 500.2500, L100.0100 ####[facility] [address] [place], [address] IG% 0.900 Normal 0.0-0.9 [facility] Comment on above: Result Comment: IG% - Immature Granulocytes (promyelocytes, myelocytes andmetamyelocytes) > 1% indicates that a LEFT SHIFT is Present. Performed By: #### L 500.2500, L100.0100 ####[facility] [address] [place], [address] Lymphocytes/100 WBC (Bld) 7.8 % Low 19-41 [facility] Comment on above: Performed By: #### L 500.2500, L100.0100 ####[facility] [address] [place], [address] MCH (RBC) [Entitic mass] 27.7 pg Normal 27.0-32.0 [facility] Comment on above: Performed By: #### L 500.2500, L100.0100 ####[facility] [address] [place], [address] MCHC (RBC) [Mass/Vol] 30.4 g/dL Low 32-36 [facility] Comment on above: Performed By: #### L 500.2500, L100.0100 ####[facility] [address] [place], [address] MCV (RBC) [Entitic vol] 91.3 fL Normal 81-99 [facility] Comment on above: Performed By: #### L 500.2500, L100.0100 ####[facility] [address] [place], [address] Monocytes/100 WBC (Bld) 5.0 % Normal 0-10 [facility] Comment on above: Performed By: #### L 500.2500, L100.0100 ####[facility] [address] [place], [address] Neutrophils/100 WBC (Bld) 86.1 % High 47-70 [facility] Comment on above: Performed By: #### L 500.2500, L100.0100 ####[facility] [address] [place], [address] Nucleated RBC (Bld) [#/Vol] 0 10*3/uL Normal 0-5 [facility] Comment on above: Performed By: #### L 500.2500, L100.0100 ####[facility] [address] [place], [address] Platelet mean volume (Bld) [Entitic vol] 11.2 fL Normal 6.2-12.0 [facility] Comment on above: Performed By: #### L 500.2500, L100.0100 ####[facility] [address] [place], [address] Platelets (Bld) [#/Vol] 246 10*3/uL Normal 150-450 [facility] Comment on above: Performed By: #### L 500.2500, L100.0100 ####[facility] [address] [place], [address] RBC (Bld) [#/Vol] 3.57 10*6/uL Low 4.2-5.4 [facility] Comment on above: Performed By: #### L 500.2500, L100.0100 ####[facility] [address] [place], [address] RDW SD 51.5 fl High 35.1-43.9 [facility] Comment on above: Performed By: #### L 500.2500, L100.0100 ####[facility] [address] [place], [address] WBC (Bld) [#/Vol] 7.5 10*3/uL Normal 4.4-11.0 [facility] Comment on above: Performed By: #### L 500.2500, L100.0100 ####[facility] [address] [place], [address] Carbon dioxide, total [Moles /volume] in Central venous bloodOrdered By: Heydi Amaya on 02-17-2025 CO2 [Moles/Vol] 23.5 mmol/L 21.0-32.0 [facility] Chloride assayOrdered By: Davy Amaya on 02-17-2025 Chloride [Moles/Vol] 98 mmol/L 98-108 [facility] Electrocardiogram reportOrde red By: Marcelina Soto on 02-17-2025 EKG study [facility] Work Phone: Eosinophil percentageOrdered By: Heydi Amaya on 02-17-2025 Eosinophils/100 WBC (Bld) 0.1 % 0-5 [facility] Erythrocyte distribution wid th ratioOrdered By: Heydi Amaya on 02-17-2025 Erythrocyte distribution width (RBC) [Ratio] 15.6 % High 11.6-14.6 [facility] Erythrocyte distribution wid th standard deviationOrdered By: Heydi Amaya on 02-17-2025 Erythrocyte distribution width (RBC) [Ratio] 51.5 fl High 35.1-43.9 [facility] Glomerular filtration rate ( GFR) estimation/1.73 sq m using serum, plasma, or whole bOrdered By: Heydi Amaya on 02-17-2025 GFR/1.73 sq M.predicted among non-blacks MDRD (S/P/Bld) [Vol rate/Area] 48 mL/min/{1.73_m2} Low >60 [facility] deOrdered By: Heydi Amaya on 02-17-2025 Glucose [Mass/Vol] 241 mg/dL High 74-106 [facility] Hematocrit Auto (Bld) [Volum e fraction]Ordered By: Heydi Amaya on 02-17-2025 Hematocrit (Bld) [Volume fraction] 32.6 % Low 37-47 [facility] Hemoglobin measurementOrdere d By: Heydi Amaya on 02-17-2025 Hemoglobin (Bld) [Mass/Vol] 9.9 g/dL Low 12.0-15.0 [facility] Immature granulocytes/100 WB C Auto (Bld)Ordered By: Heydi Amaya on 02-17-2025 Immature granulocytes/100 WBC (Bld) 0.900 % 0.0-0.9 [facility] MCV (mean corpuscular volume ) determinationOrdered By: Heydi Amaya on 02-17-2025 MCV (RBC) [Entitic vol] 91.3 fL 81-99 [facility] Mean corpuscular hemoglobin (MCH) determinationOrdered By: Heydi Amaya on 02-17-2025 MCH (RBC) [Entitic mass] 27.7 pg 27.0-32.0 [facility] Monocyte percentageOrdered B y: Heydi Amaya on 02-17-2025 Monocytes/100 WBC (Bld) 5.0 % 0-10 [facility] Neutrophil percentageOrdered By: Heydi Amaya on 02-17-2025 Neutrophils/100 WBC (Bld) 86.1 % High 47-70 [facility] Platelet countOrdered By: Davy Amaya on 02-17-2025 Platelets (Bld) [#/Vol] 246 10*3/uL 150-450 [facility] Potassium measurement (mass/ volume)Ordered By: Heydi Amaya on 02-17-2025 Potassium (Unsp spec) [Mass/Vol] 5.3 mmol/L High 3.3-5.1 [facility] RBC Auto (Bld) [#/Vol]Ordere d By: Heydi Amaya on 02-17-2025 RBC (Bld) [#/Vol] 3.57 10*6/uL Low 4.2-5.4 [facility] Serum creatinine measurement (mass/volume)Ordered By: Heydi Amaya on 02-17-2025 Creatinine [Mass/Vol] 1.15 mg/dL 0.70-1.20 [facility] Serum glucose measurement (m ass/volume)Ordered By: Heydi Amaya on 02-17-2025 Glucose [Mass/Vol] 426 mg/dL High 70-99 [facility] Serum or plasma calcium melanie urement (mass/volume)Ordered By: Heydi Amaya on 02-17-2025 Calcium [Mass/Vol] 10.3 mg/dL 7.6-11.0 [facility] Serum or plasma urea nitroge n measurement (mass/volume)Ordered By: Heydi Amaya on 02-17-2025 Urea nitrogen [Mass/Vol] 27 mg/dL High 12-17 [facility] Sodium levelOrdered By: Rodolfo Amaya on 02-17-2025 Sodium [Moles/Vol] 134 mmol/L 133-145 [facility] White blood cell (WBC) count Ordered By: Heydi Amaya on 02-17-2025 WBC (Bld) [#/Vol] 7.5 10*3/uL 4.4-11.0 [facility] Basic Metabolic Profile (BMP )on 02-16-2025 BUN/CRE 22.0 RATIO High 06-19 [facility] Comment on above: Performed By: #### L 500.2500, L100.0500 ####[facility] [address] [place], [address] Calcium [Mass/Vol] 10.7 mg/dL Normal 7.6-11.0 [facility] Comment on above: Performed By: #### L 500.2500, L100.0500 ####[facility] [address] [place], [address] Chloride [Moles/Vol] 97 mmol/L Low 98-108 [facility] Comment on above: Performed By: #### L 500.2500, L100.0500 ####[facility] [address] [place], [address] CO2 [Moles/Vol] 29.5 mmol/L Normal 21.0-32.0 [facility] Comment on above: Performed By: #### L 500.2500, L100.0500 ####[facility] [address] [place], [address] Creatinine [Mass/Vol] 0.97 mg/dL Normal 0.70-1.20 [facility] Comment on above: Performed By: #### L 500.2500, L100.0500 ####[facility] [address] [place], [address] ECRCL 44.69 ml/min Low 50-250 [facility] Comment on above: Performed By: #### L 500.2500, L100.0500 ####[facility] [address] [place], [address] GAP 12 Normal 5-15 [facility] Comment on above: Performed By: #### L 500.2500, L100.0500 ####[facility] [address] [place], [address] GFR/1.73 sq M.predicted among non-blacks MDRD (S/P/Bld) [Vol rate/Area] 58 mL/min/{1.73_m2} Low >60 [facility] Comment on above: Result Comment: mL/m in/1.73m2 CKD-EPI Creatinine Equation (2020) Performed By: #### L 500.2500, L100.0500 ####[facility] [address] [place], [address] Glucose [Mass/Vol] 98 mg/dL Normal 70-99 [facility] Comment on above: Performed By: #### L 500.2500, L100.0500 ####[facility] [address] [place], [address] Potassium [Moles/Vol] 4.7 mmol/L Normal 3.3-5.1 [facility] Comment on above: Performed By: #### L 500.2500, L100.0500 ####[facility] [address] [place], [address] Sodium [Moles/Vol] 138 mmol/L Normal 133-145 [facility] Comment on above: Performed By: #### L 500.2500, L100.0500 ####[facility] [address] [place], [address] Urea nitrogen [Mass/Vol] 21 mg/dL High 4-19 [facility] Comment on above: Performed By: #### L 500.2500, L100.0500 ####[facility] [address] [place], [address] Bedside Glucoseon 02-16-2025 FINGERSTICK GLU 254 mg/dL High 74-106 [facility] Comment on above: Result Comment: KATARINA GEMENT OF PATIENT CARE PER NURSING PROTOCOL Performed By: #### L 501.080 ####[facility] [address] [place], [address] FINGERSTICK GLU 234 mg/dL High 74-106 [facility] Comment on above: Result Comment: KATARINA GEMENT OF PATIENT CARE PER NURSING PROTOCOL Performed By: #### L 501.080 ####[facility] [address] [place], [address] FINGERSTICK GLU 91 mg/dL Normal 74-106 [facility] Comment on above: Result Comment: KATARINA GEMENT OF PATIENT CARE PER NURSING PROTOCOL Performed By: #### L 501.080 ####[facility] [address] [place], [address] FINGERSTICK GLU 63 mg/dL Low 74-106 [facility] Comment on above: Result Comment: KATARINA GEMENT OF PATIENT CARE PER NURSING PROTOCOL Performed By: #### L 501.080 ####[facility] [address] [place], [address] CBC-Complete Blood Cnt No Di ffon 02-16-2025 Erythrocyte distribution width (RBC) [Ratio] 16.1 % High 11.6-14.6 [facility] Comment on above: Performed By: #### L 500.2500, L100.0500 ####[facility] [address] [place], [address] Hematocrit (Bld) [Volume fraction] 36.2 % Low 37-47 [facility] Comment on above: Performed By: #### L 500.2500, L100.0500 ####[facility] [address] [place], [address] Hemoglobin (Bld) [Mass/Vol] 11.0 g/dL Low 12.0-15.0 [facility] Comment on above: Performed By: #### L 500.2500, L100.0500 ####[facility] [address] [place], [address] MCH (RBC) [Entitic mass] 27.4 pg Normal 27.0-32.0 [facility] Comment on above: Performed By: #### L 500.2500, L100.0500 ####[facility] [address] [place], [address] MCHC (RBC) [Mass/Vol] 30.4 g/dL Low 32-36 [facility] Comment on above: Performed By: #### L 500.2500, L100.0500 ####[facility] [address] [place], [address] MCV (RBC) [Entitic vol] 90.0 fL Normal 81-99 [facility] Comment on above: Performed By: #### L 500.2500, L100.0500 ####[facility] [address] [place], [address] Platelet mean volume (Bld) [Entitic vol] 11.0 fL Normal 6.2-12.0 [facility] Comment on above: Performed By: #### L 500.2500, L100.0500 ####[facility] [address] [place], [address] Platelets (Bld) [#/Vol] 250 10*3/uL Normal 150-450 [facility] Comment on above: Performed By: #### L 500.2500, L100.0500 ####[facility] [address] [place], [address] RBC (Bld) [#/Vol] 4.02 10*6/uL Low 4.2-5.4 [facility] Comment on above: Performed By: #### L 500.2500, L100.0500 ####[facility] [address] [place], [address] RDW SD 52.3 fl High 35.1-43.9 [facility] Comment on above: Performed By: #### L 500.2500, L100.0500 ####[facility] [address] [place], [address] WBC (Bld) [#/Vol] 9.2 10*3/uL Normal 4.4-11.0 [facility] Comment on above: Performed By: #### L 500.2500, L100.0500 ####[facility] [address] [place], [address] Gram Stainon 02-16-2025 GS Acceptable Specimen? Yes (<25 Epithelial cells per/lpf) Gram Stain Rare Gram positive cocci Rare Gram positive rods No Epithelial cells Rare White Blood Cells Normal [facility] Comment on above: Performed By: #### M 100.2000, M100.2400 ####[facility] [address] [place], [address] Gram stainOrdered By: Ankit Jean-Baptiste on 02-16-2025 Microscopic observation Gram stain Nom (Unsp spec) [facility] Microbial respiratory cultur eOrdered By: Nestor Bartlett on 02-16-2025 Microorganism identified Cx Nom (Unsp spec) or Staphylococcus aureus isolated. [facility] 12 Lead EKGon 02-15-2025 12 Lead EKG Normal [facility] Absolute lymphocyte countOrd ered By: Remus Ungmasood on 02-15-2025 Lymphocytes Auto (Unsp spec) [#/Vol] 0.98 10*3/uL 0.83-4.51 [facility] Anion gap in Serum or Plasma Ordered By: Remus Ungmasood on 02-15-2025 Anion gap [Moles/Vol] 9 mmol/L 5-15 [facility] Automated lymphocyte count a s percentage of total leukocytesOrdered By: Remus Keegan on 02-15-2025 Lymphocytes/100 WBC Auto (Unsp spec) 10.9 % Low 19-41 [facility] BUN/creatinine ratioOrdered By: Remus Srinivasmasood on 02-15-2025 Urea nitrogen/Creatinine [Mass ratio] 23.1 mg/mg High 10- [facility] Basic Metabolic Profile (BMP )on 02-15-2025 BUN/CRE 23.1 RATIO High - [facility] Comment on above: Performed By: #### L 500.2500, L503.7505, L501.4021, L100.0100 ####[facility] [address] [place], [address] Calcium [Mass/Vol] 10.7 mg/dL Normal 7.6-11.0 [facility] Comment on above: Performed By: #### L 500.2500, L503.7505, L501.4021, L100.0100 ####[facility] [address] [place], [address] Chloride [Moles/Vol] 98 mmol/L Normal 98-108 [facility] Comment on above: Performed By: #### L 500.2500, L503.7505, L501.4021, L100.0100 ####[facility] [address] [place], [address] CO2 [Moles/Vol] 30.9 mmol/L Normal 21.0-32.0 [facility] Comment on above: Performed By: #### L 500.2500, L503.7505, L501.4021, L100.0100 ####[facility] [address] [place], [address] Creatinine [Mass/Vol] 1.04 mg/dL Normal 0.70-1.20 [facility] Comment on above: Performed By: #### L 500.2500, L503.7505, L501.4021, L100.0100 ####[facility] [address] [place], [address] ECRCL 41.98 ml/min Low 50-250 [facility] Comment on above: Performed By: #### L 500.2500, L503.7505, L501.4021, L100.0100 ####[facility] [address] [place], [address] GAP 9 Normal 5-15 [facility] Comment on above: Performed By: #### L 500.2500, L503.7505, L501.4021, L100.0100 ####[facility] [address] [place], [address] GFR/1.73 sq M.predicted among non-blacks MDRD (S/P/Bld) [Vol rate/Area] 54 mL/min/{1.73_m2} Low >60 [facility] Comment on above: Result Comment: mL/m in/1.73m2 CKD-EPI Creatinine Equation (2020) Performed By: #### L 500.2500, L503.7505, L501.4021, L100.0100 ####[facility] [address] [place], [address] Glucose [Mass/Vol] 97 mg/dL Normal 70-99 [facility] Comment on above: Performed By: #### L 500.2500, L503.7505, L501.4021, L100.0100 ####[facility] [address] [place], [address] Potassium [Moles/Vol] 4.3 mmol/L Normal 3.3-5.1 [facility] Comment on above: Performed By: #### L 500.2500, L503.7505, L501.4021, L100.0100 ####[facility] [address] [place], [address] Sodium [Moles/Vol] 138 mmol/L Normal 133-145 [facility] Comment on above: Performed By: #### L 500.2500, L503.7505, L501.4021, L100.0100 ####[facility] [address] [place], [address] Urea nitrogen [Mass/Vol] 24 mg/dL High 4-19 [facility] Comment on above: Performed By: #### L 500.2500, L503.7505, L501.4021, L100.0100 ####[facility] [address] [place], [address] Basophil percentageOrdered B y: Remus Ungur on 02-15-2025 Basophils/100 WBC (Bld) 0.1 % 0-1 [facility] Bedside Glucoseon 02-15-2025 FINGERSTICK GLU 152 mg/dL High 74-106 [facility] Comment on above: Result Comment: KATARINA GEMENT OF PATIENT CARE PER NURSING PROTOCOL Performed By: #### L 501.080 ####[facility] [address] [place], [address] FINGERSTICK GLU 80 mg/dL Normal 74-106 [facility] Comment on above: Result Comment: KATARINA GEMENT OF PATIENT CARE PER NURSING PROTOCOL Performed By: #### L 501.080 ####[facility] [address] [place], [address] CBC W/Diff, Automatedon 01-29 Absolute Lymph 0.98 X10 3/uL Normal 0.83-4.51 [facility] Comment on above: Performed By: #### L 500.2500, L503.7505, L501.4021, L100.0100 ####[facility] [address] [place], [address] Absolute Neut 7.5 X10 3/uL Normal 2.0-7.7 [facility] Comment on above: Performed By: #### L 500.2500, L503.7505, L501.4021, L100.0100 ####[facility] [address] [place], [address] Basophils/100 WBC (Bld) 0.1 % Normal 0-1 [facility] Comment on above: Performed By: #### L 500.2500, L503.7505, L501.4021, L100.0100 ####[facility] [address] [place], [address] Eosinophils/100 WBC (Bld) 0.7 % Normal 0-5 [facility] Comment on above: Performed By: #### L 500.2500, L503.7505, L501.4021, L100.0100 ####[facility] [address] [place], [address] Erythrocyte distribution width (RBC) [Ratio] 16.2 % High 11.6-14.6 [facility] Comment on above: Performed By: #### L 500.2500, L503.7505, L501.4021, L100.0100 ####[facility] [address] [place], [address] Hematocrit (Bld) [Volume fraction] 33.5 % Low 37-47 [facility] Comment on above: Performed By: #### L 500.2500, L503.7505, L501.4021, L100.0100 ####[facility] [address] [place], [address] Hemoglobin (Bld) [Mass/Vol] 10.1 g/dL Low 12.0-15.0 [facility] Comment on above: Performed By: #### L 500.2500, L503.7505, L501.4021, L100.0100 ####[facility] [address] [place], [address] IG% 1.000 High 0.0-0.9 [facility] Comment on above: Result Comment: IG% - Immature Granulocytes (promyelocytes, myelocytes andmetamyelocytes) > 1% indicates that a LEFT SHIFT is Present. Performed By: #### L 500.2500, L503.7505, L501.4021, L100.0100 ####[facility] [address] [place], [address] Lymphocytes/100 WBC (Bld) 10.9 % Low 19-41 [facility] Comment on above: Performed By: #### L 500.2500, L503.7505, L501.4021, L100.0100 ####[facility] [address] [place], [address] MCH (RBC) [Entitic mass] 27.0 pg Normal 27.0-32.0 [facility] Comment on above: Performed By: #### L 500.2500, L503.7505, L501.4021, L100.0100 ####[facility] [address] [place], [address] MCHC (RBC) [Mass/Vol] 30.1 g/dL Low 32-36 [facility] Comment on above: Performed By: #### L 500.2500, L503.7505, L501.4021, L100.0100 ####[facility] [address] [place], [address] MCV (RBC) [Entitic vol] 89.6 fL Normal 81-99 [facility] Comment on above: Performed By: #### L 500.2500, L503.7505, L501.4021, L100.0100 ####[facility] [address] [place], [address] Monocytes/100 WBC (Bld) 4.8 % Normal 0-10 [facility] Comment on above: Performed By: #### L 500.2500, L503.7505, L501.4021, L100.0100 ####[facility] [address] [place], [address] Neutrophils/100 WBC (Bld) 82.5 % High 47-70 [facility] Comment on above: Performed By: #### L 500.2500, L503.7505, L501.4021, L100.0100 ####[facility] [address] [place], [address] Nucleated RBC (Bld) [#/Vol] 0 10*3/uL Normal 0-5 [facility] Comment on above: Performed By: #### L 500.2500, L503.7505, L501.4021, L100.0100 ####[facility] [address] [place], [address] Platelet mean volume (Bld) [Entitic vol] 10.4 fL Normal 6.2-12.0 [facility] Comment on above: Performed By: #### L 500.2500, L503.7505, L501.4021, L100.0100 ####[facility] [address] [place], [address] Platelets (Bld) [#/Vol] 243 10*3/uL Normal 150-450 [facility] Comment on above: Performed By: #### L 500.2500, L503.7505, L501.4021, L100.0100 ####[facility] [address] [place], [address] RBC (Bld) [#/Vol] 3.74 10*6/uL Low 4.2-5.4 [facility] Comment on above: Performed By: #### L 500.2500, L503.7505, L501.4021, L100.0100 ####[facility] [address] [place], [address] RDW SD 52.9 fl High 35.1-43.9 [facility] Comment on above: Performed By: #### L 500.2500, L503.7505, L501.4021, L100.0100 ####[facility] [address] [place], [address] WBC (Bld) [#/Vol] 9.0 10*3/uL Normal 4.4-11.0 [facility] Comment on above: Performed By: #### L 500.2500, L503.7505, L501.4021, L100.0100 ####[facility] [address] [place], [address] Carbon dioxide, total [Moles /volume] in Central venous bloodOrdered By: Robert Allison on 02-15-2025 CO2 [Moles/Vol] 30.9 mmol/L 21.0-32.0 [facility] Chest 1 View (Portable)on Chest 1 View (Portable) Normal [facility] Chloride assayOrdered By: Ester Allison on 02-15-2025 Chloride [Moles/Vol] 98 mmol/L 98-108 [facility] Emergency Department Summary on 02-15-2025 Emergency Department Summary Normal [facility] Eosinophil percentageOrdered By: Robert Allison on 02-15-2025 Eosinophils/100 WBC (Bld) 0.7 % 0-5 [facility] Erythrocyte distribution wid th ratioOrdered By: Robert Allison on 02-15-2025 Erythrocyte distribution width (RBC) [Ratio] 16.2 % High 11.6-14.6 [facility] Erythrocyte distribution wid th standard deviationOrdered By: Robert Allison on 02-15-2025 Erythrocyte distribution width (RBC) [Ratio] 52.9 fl High 35.1-43.9 [facility] Glomerular filtration rate ( GFR) estimation/1.73 sq m using serum, plasma, or whole bOrdered By: Robert Allison on 02-15-2025 GFR/1.73 sq M.predicted among non-blacks MDRD (S/P/Bld) [Vol rate/Area] 54 mL/min/{1.73_m2} Low >60 [facility] H AND P Exam - Hospitaliston 02-15-2025 H&P Exam - Hospitalist Normal [facility] Hematocrit Auto (Bld) [Volum e fraction]Ordered By: Robert Allison on 02-15-2025 Hematocrit (Bld) [Volume fraction] 33.5 % Low 37-47 [facility] Hemoglobin measurementOrdere d By: Robert Allison on 02-15-2025 Hemoglobin (Bld) [Mass/Vol] 10.1 g/dL Low 12.0-15.0 [facility] Immature granulocytes/100 WB C Auto (Bld)Ordered By: [facility] E[facility] on 02-15-2025 Immature granulocytes/100 WBC (Bld) 1.000 % High 0.0-0.9 [facility] L499.0042on 02-15-2025 Trop T High Sen 113 ng/L Invalid Interpretation Code <=14 [facility] Comment on above: Result Comment: Crit ical Result(s) Called at: 02/15/2025-13:14 by: Pat Smiley.??Results read back by same. Performed By: #### L 499.0042 ####[facility] [address] [facility] [place], [place], [address] L499.0043on 02-15-2025 Trop T High Sen 114 ng/L Invalid Interpretation Code <=14 [facility] Comment on above: Result Comment: Hemo lysis present, Results??could be affected.??CRIT CALLED BY ARCHIE MOE AT 1607Critical Result(s) Called at: by:??Results read back bysala. Performed By: #### L 499.0043 ####[facility] [address] [place], [place], [address] L501.4021on 02-15-2025 Trop T High Sen 117 ng/L Invalid Interpretation Code <=14 [facility] Comment on above: Result Comment: Crit ical Result(s) Called at:02/15/2025-11:47 by: Pat Lopez.??Results read back by same. Performed By: #### L 500.2500, L503.7505, L501.4021, L100.0100 ####[facility] [address] [place], [address] L503.7505on 02-15-2025 Natriuretic peptide B (Bld) [Mass/Vol] 4408 pg/mL High <=1800 [facility] Comment on above: Result Comment: Hear t Failure Unlikely: < 300 pg/mLHeart Failure Likely< 50 Years: > 450 pg/mL50-75 Years: > 900 pg/mL>75 Years: > 1800 pg/mL Performed By: #### L 500.2500, L503.7505, L501.4021, L100.0100 ####[facility] [address] [place], [address] L509.7001on 02-15-2025 Procalcitonin 0.27 ng/mL High <=0.10 [facility] Comment on above: Result Comment: Inte rpretation:<0.10-0.25 ng/mL: Antibiotic therapy discouraged. Bacterialinfection unlikely.0.25-0.50 ng/mL: Antibiotic therapy encouraged. Bacterialinfection possible.>0.50 ng/mL: Antibiotic therapy strongly encouraged.Suggestive of presence of bacterial infection.PCT should always be interpreted in the clinical context ofthe patient. Therefore, clinicians should use the PCTresults in conjunction with other laboratory findings andclinical signs of the patient. Performed By: #### L 509.7001 ####[facility] [address] [place], [address] MCV (mean corpuscular volume ) determinationOrdered By: Remus Ungur on 02-15-2025 MCV (RBC) [Entitic vol] 89.6 fL 81-99 [facility] Mean corpuscular hemoglobin (MCH) determinationOrdered By: Remus Ungur on 02-15-2025 MCH (RBC) [Entitic mass] 27.0 pg 27.0-32.0 [facility] Monocyte percentageOrdered B y: Remus Ungur on 02-15-2025 Monocytes/100 WBC (Bld) 4.8 % 0-10 [facility] Natriuretic peptide.B prohor hayley N-Terminal [Mass/volume] in Serum or PlasmaOrdered By: Robert Allison on 02-15-2025 Natriuretic peptide.B prohormone N-Terminal [Mass/Vol] 4408 pg/mL High <1800 [facility] Neutrophil percentageOrdered By: Robert Allison on 02-15-2025 Neutrophils/100 WBC (Bld) 82.5 % High 47-70 [facility] Platelet countOrdered By: Ester Allison on 02-15-2025 Platelets (Bld) [#/Vol] 243 10*3/uL 150-450 [facility] Potassium measurement (mass/ volume)Ordered By: Robert Allison on 02-15-2025 Potassium (Unsp spec) [Mass/Vol] 4.3 mmol/L 3.3-5.1 [facility] Procalcitonin [Mass/volume] in Serum or Plasma by ImmunoassayOrdered By: Nestor Bartlett on 02-15-2025 Procalcitonin IA [Mass/Vol] 0.27 ng/mL High <0.11 [facility] RBC Auto (Bld) [#/Vol]Ordere d By: Robert Allison on 02-15-2025 RBC (Bld) [#/Vol] 3.74 10*6/uL Low 4.2-5.4 [facility] Serum creatinine measurement (mass/volume)Ordered By: Robert Allison on 02-15-2025 Creatinine [Mass/Vol] 1.04 mg/dL 0.70-1.20 [facility] Serum glucose measurement (m ass/volume)Ordered By: Robert Allison on 02-15-2025 Glucose [Mass/Vol] 97 mg/dL 70-99 [facility] Serum or plasma calcium melanie urement (mass/volume)Ordered By: Robert Allison on 02-15-2025 Calcium [Mass/Vol] 10.7 mg/dL 7.6-11.0 [facility] Serum or plasma urea nitroge n measurement (mass/volume)Ordered By: Robert Allison on 02-15-2025 Urea nitrogen [Mass/Vol] 24 mg/dL High 4-19 [facility] Sodium levelOrdered By: Lorena Allison on 02-15-2025 Sodium [Moles/Vol] 138 mmol/L 133-145 [facility] Troponin T.cardiac [Mass/vol ume] in Serum or Plasma by High sensitivity methodOrdered By: Robert Allison on 02-15-2025 Troponin T.cardiac High sensitivity method [Mass/Vol] 114 ng/L High <14 [facility] Troponin T.cardiac High sensitivity method [Mass/Vol] 113 ng/L High <14 [facility] Troponin T.cardiac High sensitivity method [Mass/Vol] 117 ng/L High <14 [facility] White blood cell (WBC) count Ordered By: Robert Allison on 02-15-2025 WBC (Bld) [#/Vol] 9.0 10*3/uL 4.4-11.0 [facility] Bedside Glucoseon 02-13-2025 FINGERSTICK GLU 337 mg/dL High 74-106 [facility] Comment on above: Result Comment: KATARINA GEMENT OF PATIENT CARE PER NURSING PROTOCOL Performed By: #### L 501.080 ####[facility] [address] [place], [address] FINGERSTICK GLU 302 mg/dL High [address] [place] [address] Comment on above: Result Comment: KATARINA GEMENT OF PATIENT CARE PER NURSING PROTOCOL Performed By: #### L 501.080 ####[facility] [address] [place], [address] Discharge Instructionon 01-29 Discharge Instruction Normal [facility] deOrdered By: Lucio Borden on 02-13-2025 Glucose [Mass/Vol] 337 mg/dL High 74-106 [facility] Bedside Glucoseon 02-12-2025 FINGERSTICK GLU 236 mg/dL High -106 [facility] Comment on above: Result Comment: KATARINA GEMENT OF PATIENT CARE PER NURSING PROTOCOL Performed By: #### L 501.080 ####[facility] [address] [place], [address] FINGERSTICK GLU 112 mg/dL High -106 [facility] Comment on above: Result Comment: KATARINA GEMENT OF PATIENT CARE PER NURSING PROTOCOL Performed By: #### L 501.080 ####[facility] [address] [place], [address] FINGERSTICK GLU 471 mg/dL Invalid Interpretation Code [address] [place] [address] Comment on above: Result Comment: Dr Carina javier FollowedMANAGEMENT OF PATIENT CARE PER NURSING PROTOCOL Performed By: #### L 501.080 ####[facility] [address] [place], [address] FINGERSTICK GLU 492 mg/dL Invalid Interpretation Code [address] [place] [address] Comment on above: Result Comment: Repe at TestMANAGEMENT OF PATIENT CARE PER NURSING PROTOCOL Performed By: #### L 501.080 ####[facility] [address] [place], [address] FINGERSTICK GLU 243 mg/dL High [address] [place] [address] Comment on above: Result Comment: KATARINA GEMENT OF PATIENT CARE PER NURSING PROTOCOL Performed By: #### L 501.080 ####[facility] [address] [place], [address] FINGERSTICK GLU 312 mg/dL High [address] [place] [address] Comment on above: Result Comment: KATARINA GEMENT OF PATIENT CARE PER NURSING PROTOCOL Performed By: #### L 501.080 ####[facility] [address] [place], [address] FINGERSTICK GLU 246 mg/dL High [address] [place] [address] Comment on above: Result Comment: KATARIAN GEMENT OF PATIENT CARE PER NURSING PROTOCOL Performed By: #### L 501.080 ####[facility] [address] [place], [address] Bedside Glucoseon 02-11-2025 FINGERSTICK GLU 276 mg/dL High [address] [place] [address] Comment on above: Result Comment: KATARINA GEMENT OF PATIENT CARE PER NURSING PROTOCOL Performed By: #### L 501.080 ####[facility] [address] [place], [address] FINGERSTICK GLU 124 mg/dL High [address] [place] [address] Comment on above: Result Comment: KATARINA GEMENT OF PATIENT CARE PER NURSING PROTOCOL Performed By: #### L 501.080 ####[facility] [address] [place], [address] FINGERSTICK GLU 257 mg/dL High [address] [place] [address] Comment on above: Result Comment: KATARINA GEMENT OF PATIENT CARE PER NURSING PROTOCOL Performed By: #### L 501.080 ####[facility] [address] [place], [address] FINGERSTICK GLU 305 mg/dL High [address] [place] [address] Comment on above: Result Comment: KATARINA GEMENT OF PATIENT CARE PER NURSING PROTOCOL Performed By: #### L 501.080 ####[facility] [address] [place], [address] FINGERSTICK GLU 242 mg/dL High [address] [place] [address] Comment on above: Result Comment: KATARINA GEMENT OF PATIENT CARE PER NURSING PROTOCOL Performed By: #### L 501.080 ####[facility] [address] [place], [address] FINGERSTICK GLU 206 mg/dL High [address] [place] [address] Comment on above: Result Comment: KATARINA GEMENT OF PATIENT CARE PER NURSING PROTOCOL Performed By: #### L 501.080 ####[facility] [address] [place], [address] Anion gap in Serum or Plasma Ordered By: Lucio Borden on 02-10-2025 Anion gap [Moles/Vol] 14 mmol/L 5-15 [facility] BUN/creatinine ratioOrdered By: Lucio Borden on 02-10-2025 Urea nitrogen/Creatinine [Mass ratio] 20.8 mg/mg High 10-20 [facility] Basic Metabolic Profile (BMP )on 02-10-2025 BUN/CRE 20.8 RATIO High 10-20 [facility] Comment on above: Performed By: #### L 500.2500 ####[facility] [address] [place], [address] Calcium [Mass/Vol] 10.0 mg/dL Normal 7.6-11.0 [facility] Comment on above: Performed By: #### L 500.2500 ####[facility] [address] [place], [address] Chloride [Moles/Vol] 98 mmol/L Normal 98-108 [facility] Comment on above: Performed By: #### L 500.2500 ####[facility] [address] [place], [address] CO2 [Moles/Vol] 26.8 mmol/L Normal 21.0-32.0 [facility] Comment on above: Performed By: #### L 500.2500 ####[facility] [address] [place], [address] Creatinine [Mass/Vol] 1.10 mg/dL Normal 0.70-1.20 [facility] Comment on above: Performed By: #### L 500.2500 ####[facility] [address] [place], [address] ECRCL 39.32 ml/min Low 50-250 [facility] Comment on above: Performed By: #### L 500.2500 ####[facility] [address] [place], [address] GAP 14 Normal 5-15 [facility] Comment on above: Performed By: #### L 500.2500 ####[facility] [address] [place], [address] GFR/1.73 sq M.predicted among non-blacks MDRD (S/P/Bld) [Vol rate/Area] 50 mL/min/{1.73_m2} Low >60 [facility] Comment on above: Result Comment: mL/m in/1.73m2 CKD-EPI Creatinine Equation (2020) Performed By: #### L 500.2500 ####[facility] [address] [place], [address] Glucose [Mass/Vol] 361 mg/dL High 70-99 [facility] Comment on above: Performed By: #### L 500.2500 ####[facility] [address] [place], [address] Potassium [Moles/Vol] 4.9 mmol/L Normal 3.3-5.1 [facility] Comment on above: Performed By: #### L 500.2500 ####[facility] [address] [place], [address] Sodium [Moles/Vol] 139 mmol/L Normal 133-145 [facility] Comment on above: Performed By: #### L 500.2500 ####[facility] [address] [place], [address] Urea nitrogen [Mass/Vol] 23 mg/dL High 4-19 [facility] Comment on above: Performed By: #### L 500.2500 ####[facility] [address] [place], [address] Bedside Glucoseon 02-10-2025 FINGERSTICK GLU 167 mg/dL High 74-106 [facility] Comment on above: Result Comment: KATARINA GEMENT OF PATIENT CARE PER NURSING PROTOCOL Performed By: #### L 501.080 ####[facility] [address] [place], [address] FINGERSTICK GLU 78 mg/dL Normal 74-106 [facility] Comment on above: Result Comment: KATARINA GEMENT OF PATIENT CARE PER NURSING PROTOCOL Performed By: #### L 501.080 ####[facility] [address] [place], [address] FINGERSTICK GLU 64 mg/dL Low 74-106 [facility] Comment on above: Result Comment: KATARINA GEMENT OF PATIENT CARE PER NURSING PROTOCOL Performed By: #### L 501.080 ####[facility] [address] [place], [address] FINGERSTICK GLU 222 mg/dL High 74-106 [facility] Comment on above: Result Comment: KATARINA GEMENT OF PATIENT CARE PER NURSING PROTOCOL Performed By: #### L 501.080 ####[facility] [address] [place], [address] Carbon dioxide, total [Moles /volume] in Central venous bloodOrdered By: Lucio Borden on 02-10-2025 CO2 [Moles/Vol] 26.8 mmol/L 21.0-32.0 [facility] Chloride assayOrdered By: Chen Borden on 02-10-2025 Chloride [Moles/Vol] 98 mmol/L 98-108 [facility] Glomerular filtration rate ( GFR) estimation/1.73 sq m using serum, plasma, or whole bOrdered By: Lucio Borden on 02-10-2025 GFR/1.73 sq M.predicted among non-blacks MDRD (S/P/Bld) [Vol rate/Area] 50 mL/min/{1.73_m2} Low >60 [facility] Potassium measurement (mass/ volume)Ordered By: Lucio Borden on 02-10-2025 Potassium (Unsp spec) [Mass/Vol] 4.9 mmol/L 3.3-5.1 [facility] RESPIRATORY PANEL MOLECULARo n 02-10-2025 RP PANEL Normal [facility] Comment on above: Performed By: #### M 100.638 ####[facility] [address] [place], [address] Serum creatinine measurement (mass/volume)Ordered By: Lucio Borden on 02-10-2025 Creatinine [Mass/Vol] 1.10 mg/dL 0.70-1.20 [facility] Serum glucose measurement (m ass/volume)Ordered By: Lucio Borden on 02-10-2025 Glucose [Mass/Vol] 361 mg/dL High 70-99 [facility] Serum or plasma calcium melanie urement (mass/volume)Ordered By: Lucio Borden on 02-10-2025 Calcium [Mass/Vol] 10.0 mg/dL 7.6-11.0 [facility] Serum or plasma urea nitroge n measurement (mass/volume)Ordered By: Lucio Borden on 02-10-2025 Urea nitrogen [Mass/Vol] 23 mg/dL High 4-19 [facility] Sodium levelOrdered By: Lucio Borden on 02-10-2025 Sodium [Moles/Vol] 139 mmol/L 133-145 [facility] Absolute lymphocyte countOrd ered By: Jeremiah Corrales on 02-09-2025 Lymphocytes Auto (Unsp spec) [#/Vol] 0.69 10*3/uL Low 0.83-4.51 [facility] Anion gap in Serum or Plasma Ordered By: Jeremiah Corrales on 02-09-2025 Anion gap [Moles/Vol] 12 mmol/L 5-15 [facility] Automated lymphocyte count a s percentage of total leukocytesOrdered By: Jeremiah Corrales on 02-09-2025 Lymphocytes/100 WBC Auto (Unsp spec) 7.3 % Low 19-41 [facility] BUN/creatinine ratioOrdered By: Jeremiah Corrales on 02-09-2025 Urea nitrogen/Creatinine [Mass ratio] 20.2 mg/mg High 10-20 [facility] [facility] Basic Metabolic Profile (BMP )on 02-09-2025 BUN/CRE 20.2 RATIO High 10-20 [facility] Comment on above: Performed By: #### L 100.0100, L501.4021, L500.2500 ####[facility] [address], [address] Calcium [Mass/Vol] 10.2 mg/dL Normal 7.6-11.0 [facility] Comment on above: Performed By: #### L 100.0100, L501.4021, L500.2500 ####[facility] [address] [place], [address] Chloride [Moles/Vol] 98 mmol/L Normal 98-108 [facility] Comment on above: Performed By: #### L 100.0100, L501.4021, L500.2500 ####[facility] [address] [place], [address] CO2 [Moles/Vol] 29.9 mmol/L Normal 21.0-32.0 [facility] Comment on above: Performed By: #### L 100.0100, L501.4021, L500.2500 ####[facility] [address] [place], [address] Creatinine [Mass/Vol] 1.16 mg/dL Normal 0.70-1.20 [facility] Comment on above: Performed By: #### L 100.0100, L501.4021, L500.2500 ####[facility] [address] [place], [address] ECRCL 37.42 ml/min Low 50-250 [facility] Comment on above: Performed By: #### L 100.0100, L501.4021, L500.2500 ####[facility] [address] [place], [address] GAP 12 Normal 5-15 [facility] Comment on above: Performed By: #### L 100.0100, L501.4021, L500.2500 ####[facility] [address] [place], [address] GFR/1.73 sq M.predicted among non-blacks MDRD (S/P/Bld) [Vol rate/Area] 47 mL/min/{1.73_m2} Low >60 [facility] Comment on above: Result Comment: mL/m in/1.73m2 CKD-EPI Creatinine Equation (2020) Performed By: #### L 100.0100, L501.4021, L500.2500 ####[facility] [address] [place], [address] Glucose [Mass/Vol] 173 mg/dL High 70-99 [facility] Comment on above: Performed By: #### L 100.0100, L501.4021, L500.2500 ####[facility] [address] [place], [address] Potassium [Moles/Vol] 4.3 mmol/L Normal 3.3-5.1 [facility] Comment on above: Performed By: #### L 100.0100, L501.4021, L500.2500 ####[facility] [address] [place], [address] Sodium [Moles/Vol] 140 mmol/L Normal 133-145 [facility] Comment on above: Performed By: #### L 100.0100, L501.4021, L500.2500 ####[facility] [address] [place], [address] Urea nitrogen [Mass/Vol] 23 mg/dL High 4-19 [facility] Comment on above: Performed By: #### L 100.0100, L501.4021, L500.2500 ####[facility] [address] [place], [address] Basophil percentageOrdered B y: Jeremiah Corrales on 02-09-2025 Basophils/100 WBC (Bld) 0.4 % 0-1 [facility] Bedside Glucoseon 02-09-2025 FINGERSTICK GLU 401 mg/dL High 74-106 [facility] Comment on above: Result Comment: KATARINA GEMENT OF PATIENT CARE PER NURSING PROTOCOL Performed By: #### L 501.080 ####[facility] [address] [place], [address] FINGERSTICK GLU 248 mg/dL High 74-106 [facility] Comment on above: Result Comment: KATARINA GEMENT OF PATIENT CARE PER NURSING PROTOCOL Performed By: #### L 501.080 ####[facility] [address] [place], [address] CBC W/Diff, Automatedon 01-29 PLT EST ADEQUATE Normal ADEQ [facility] Comment on above: Performed By: #### L 100.0100, L501.4021, L500.2500 ####[facility] [address] [place], [address] Carbon dioxide, total [Moles /volume] in Central venous bloodOrdered By: Jeremiah Corrales on 02-09-2025 CO2 [Moles/Vol] 29.9 mmol/L 21.0-32.0 [facility] Chest PA and Lateralon 02-09 Chest PA and Lateral Normal [facility] Chloride assayOrdered By: Enio Corrales on 02-09-2025 Chloride [Moles/Vol] 98 mmol/L 98-108 [facility] Emergency Department Summary on 02-09-2025 Emergency Department Summary Normal [facility] Eosinophil percentageOrdered By: Jeremiah Corrales on 02-09-2025 Eosinophils/100 WBC (Bld) 0.1 % 0-5 [facility] Erythrocyte distribution wid th ratioOrdered By: Jeremiah Corrales on 02-09-2025 Erythrocyte distribution width (RBC) [Ratio] 15.8 % High 11.6-14.6 [facility] Erythrocyte distribution wid th standard deviationOrdered By: Jeremiah Corrales on 02-09-2025 Erythrocyte distribution width (RBC) [Ratio] 51.3 fl High 35.1-43.9 [facility] Glomerular filtration rate ( GFR) estimation/1.73 sq m using serum, plasma, or whole bOrdered By: Jeremiah Corrales on 02-09-2025 GFR/1.73 sq M.predicted among non-blacks MDRD (S/P/Bld) [Vol rate/Area] 47 mL/min/{1.73_m2} Low >60 [facility] H AND P Exam - Hospitaliston 02-09-2025 H&P Exam - Hospitalist Normal [facility] Hematocrit Auto (Bld) [Volum e fraction]Ordered By: Jeremiah Corrales on 02-09-2025 Hematocrit (Bld) [Volume fraction] 37.9 % 37-47 [facility] Hemoglobin measurementOrdere d By: Jeremiah Corrales on 02-09-2025 Hemoglobin (Bld) [Mass/Vol] 11.5 g/dL Low 12.0-15.0 [facility] Immature granulocytes/100 WB C Auto (Bld)Ordered By: Jeremiah Corrales on 02-09-2025 Immature granulocytes/100 WBC (Bld) 0.800 % 0.0-0.9 [facility] L499.0042on 02-09-2025 Trop T High Sen 119 ng/L Invalid Interpretation Code <=14 [facility] Comment on above: Result Comment: Crit ical Result(s) Called VANE GRAVES at: 1520 by:VIET??Results read back by same. Performed By: #### L 499.0042 ####[facility] [address] [place], [place], [address] L501.4021on 02-09-2025 Trop T High Sen 122 ng/L Invalid Interpretation Code <=14 [facility] Comment on above: Result Comment: Crit ical Result(s) Called at 1330: by: SHARONA ROWELL. ??Results read back by same. Performed By: #### L 100.0100, L501.4021, L500.2500 ####[facility] [address] [place], [place], [address] L503.7505on 02-09-2025 Natriuretic peptide B (Bld) [Mass/Vol] 9616 pg/mL High <=1800 [facility] Comment on above: Result Comment: Hear t Failure Unlikely: < 300 pg/mLHeart Failure Likely< 50 Years: > 450 pg/mL50-75 Years: > 900 pg/mL>75 Years: > 1800 pg/mL Performed By: #### L 503.7505 ####[facility] [address] [place], [place], [id number] MCV (mean corpuscular volume ) determinationOrdered By: Jeremiah Corrales on 02-09-2025 MCV (RBC) [Entitic vol] 89.8 fL 81-99 [facility] Mean corpuscular hemoglobin (MCH) determinationOrdered By: Jeremiah Corrales on 02-09-2025 MCH (RBC) [Entitic mass] 27.3 pg 27.0-32.0 [facility] Monocyte percentageOrdered B y: Jeremiah Corrales on 02-09-2025 Monocytes/100 WBC (Bld) 4.5 % 0-10 [facility] Natriuretic peptide.B prohor hayley N-Terminal [Mass/volume] in Serum or PlasmaOrdered By: Jeremiah Corrales on 02-09-2025 Natriuretic peptide.B prohormone N-Terminal [Mass/Vol] 9616 pg/mL High <1800 [facility] Neutrophil percentageOrdered By: Jeremiah Corrales on 02-09-2025 Neutrophils/100 WBC (Bld) 86.9 % High 47-70 [facility] Platelet countOrdered By: Enio Corrales on 02-09-2025 Platelet count TNP [facility] Platelet estimateOrdered By: Jeremiah Corrales on 02-09-2025 Platelets LM Ql (Bld) ADEQUATE ADEQ [facility] Potassium measurement (mass/ volume)Ordered By: Jeremiah Corrales on 02-09-2025 Potassium (Unsp spec) [Mass/Vol] 4.3 mmol/L 3.3-5.1 [facility] RBC Auto (Bld) [#/Vol]Ordere d By: Jeremiah Corrales on 02-09-2025 RBC (Bld) [#/Vol] 4.22 10*6/uL 4.2-5.4 [facility] Respiratory pathogens detect ion panel by molecular detection methodOrdered By: Tono Gomez on 02-09-2025 Respiratory pathogens DNA and RNA panel BEBETO+probe (Resp) Parainfluenza 3 Abnormal [facility] Serum creatinine measurement (mass/volume)Ordered By: Jeremiah Corrales on 02-09-2025 Creatinine [Mass/Vol] 1.16 mg/dL 0.70-1.20 [facility] Serum glucose measurement (m ass/volume)Ordered By: Jeremiah Corrales on 02-09-2025 Glucose [Mass/Vol] 173 mg/dL High 70-99 [facility] Serum or plasma calcium emlanie urement (mass/volume)Ordered By: Jeremiah Corrales on 02-09-2025 Calcium [Mass/Vol] 10.2 mg/dL 7.6-11.0 [facility] Serum or plasma urea nitroge n measurement (mass/volume)Ordered By: Jeremiah Corrales on 02-09-2025 Urea nitrogen [Mass/Vol] 23 mg/dL High 4-19 [facility] Sodium levelOrdered By: Jeremiah Corrales on 02-09-2025 Sodium [Moles/Vol] 140 mmol/L 133-145 [facility] Troponin T.cardiac [Mass/vol ume] in Serum or Plasma by High sensitivity methodOrdered By: Jeremiah Corrales on 02-09-2025 Troponin T.cardiac High sensitivity method [Mass/Vol] 119 ng/L High <14 [facility] Troponin T.cardiac High sensitivity method [Mass/Vol] 122 ng/L High <14 [facility] White blood cell (WBC) count Ordered By: Jeremiah Corrales on 02-09-2025 WBC (Bld) [#/Vol] 9.4 10*3/uL 4.4-11.0 [facility] Absolute lymphocyte countOrd ered By: Ramone Smiley on 02-07-2025 Lymphocytes Auto (Unsp spec) [#/Vol] 0.84 10*3/uL 0.83-4.51 [facility] Anion gap in Serum or Plasma Ordered By: Ramone Smiley on 02-07-2025 Anion gap [Moles/Vol] 12 mmol/L 5-15 [facility] Automated lymphocyte count a s percentage of total leukocytesOrdered By: Ramone Smiley on 02-07-2025 Lymphocytes/100 WBC Auto (Unsp spec) 7.3 % Low 19-41 [facility] BUN/creatinine ratioOrdered By: Ramone Smiley on 02-07-2025 Urea nitrogen/Creatinine [Mass ratio] 17.7 mg/mg 10-20 [facility] Basophil percentageOrdered B y: Ramone Smiley on 02-07-2025 Basophils/100 WBC (Bld) 0.1 % 0- [facility] Bilirubin, totalOrdered By: Ramone Smiley on 02-07-2025 Bilirubin [Mass/Vol] 0.25 mg/dL 0.00-1.30 [facility] CBC W/Diff, Automatedon 01-29 Absolute Lymph 0.84 X10 3/uL Normal 0.83-4.51 [facility] Comment on above: Order Comment: Order Date: 02/07/25Order Info: 0184-1 - CBCD Performed By: #### L 100.0100, L500.4050 ####[facility] [address] [place], [address] Absolute Neut 10.0 X10 3/uL High 2.0-7.7 [facility] Comment on above: Order Comment: Order Date: 02/07/25Order Info: 0184-1 - CBCD Performed By: #### L 100.0100, L500.4050 ####[facility] [address] [place], [address] Basophils/100 WBC (Bld) 0.1 % Normal 0-1 [facility] Comment on above: Order Comment: Order Date: 02/07/25Order Info: 0184-1 - CBCD Performed By: #### L 100.0100, L500.4050 ####[facility] [address] [place], [address] Eosinophils/100 WBC (Bld) 0.0 % Normal 0-5 [facility] Comment on above: Order Comment: Order Date: 02/07/25Order Info: 0184-1 - CBCD Performed By: #### L 100.0100, L500.4050 ####[facility] [address] [place], [address] Erythrocyte distribution width (RBC) [Ratio] 15.7 % High 11.6-14.6 [facility] Comment on above: Order Comment: Order Date: 02/07/25Order Info: 0184-1 - CBCD Performed By: #### L 100.0100, L500.4050 ####[facility] [address] [place], [address] Hematocrit (Bld) [Volume fraction] 36.8 % Low 37-47 [facility] Comment on above: Order Comment: Order Date: 02/07/25Order Info: 018-1 - CBCD Performed By: #### L 100.0100, L500.4050 ####[facility] [address] [place], [address] Hemoglobin (Bld) [Mass/Vol] 11.4 g/dL Low 12.0-15.0 [facility] Comment on above: Order Comment: Order Date: 02/07/25Order Info: 018-1 - CBCD Performed By: #### L 100.0100, L500.4050 ####[facility] [address] [place], [address] IG% 0.400 Normal 0.0-0.9 [facility] Comment on above: Order Comment: Order Date: 02/07/25Order Info: 018- - CBCD Result Comment: IG% - Immature Granulocytes (promyelocytes, myelocytes andmetamyelocytes) > 1% indicates that a LEFT SHIFT is Present. Performed By: #### L 100.0100, L500.4050 ####[facility] [address] [place], [address] Lymphocytes/100 WBC (Bld) 7.3 % Low 19-41 [facility] Comment on above: Order Comment: Order Date: 02/07/25Order Info: 018-1 - CBCD Performed By: #### L 100.0100, L500.4050 ####[facility] [address] [place], [address] MCH (RBC) [Entitic mass] 27.9 pg Normal 27.0-32.0 [facility] Comment on above: Order Comment: Order Date: 02/07/25Order Info: 018- - CBCD Performed By: #### L 100.0100, L500.4050 ####[facility] [address] [place], [address] MCHC (RBC) [Mass/Vol] 31.0 g/dL Low 32-36 [facility] Comment on above: Order Comment: Order Date: 02/07/25Order Info: 0184-1 - CBCD Performed By: #### L 100.0100, L500.4050 ####[facility] [address] [place], [address] MCV (RBC) [Entitic vol] 90.2 fL Normal 81-99 [facility] Comment on above: Order Comment: Order Date: 02/07/25Order Info: 0184-1 - CBCD Performed By: #### L 100.0100, L500.4050 ####[facility] [address] [place], [address] Monocytes/100 WBC (Bld) 5.2 % Normal 0-10 [facility] Comment on above: Order Comment: Order Date: 02/07/25Order Info: 0184-1 - CBCD Performed By: #### L 100.0100, L500.4050 ####[facility] [address] [place], [address] Neutrophils/100 WBC (Bld) 87.0 % High 47-70 [facility] Comment on above: Order Comment: Order Date: 02/07/25Order Info: 0184-1 - CBCD Performed By: #### L 100.0100, L500.4050 ####[facility] [address] [place], [address] Nucleated RBC (Bld) [#/Vol] 0 10*3/uL Normal 0-5 [facility] Comment on above: Order Comment: Order Date: 02/07/25Order Info: 0184-1 - CBCD Performed By: #### L 100.0100, L500.4050 ####[facility] [address] [place], [address] Platelet mean volume (Bld) [Entitic vol] 11.5 fL Normal 6.2-12.0 [facility] Comment on above: Order Comment: Order Date: 02/07/25Order Info: 0184-1 - CBCD Performed By: #### L 100.0100, L500.4050 ####[facility] [address] [place], [address] Platelets (Bld) [#/Vol] 247 10*3/uL Normal 150-450 [facility] Comment on above: Order Comment: Order Date: 02/07/25Order Info: 0184-1 - CBCD Performed By: #### L 100.0100, L500.4050 ####[facility] [address] [place], [address] RBC (Bld) [#/Vol] 4.08 10*6/uL Low 4.2-5.4 [facility] Comment on above: Order Comment: Order Date: 02/07/25Order Info: 0184-1 - CBCD Performed By: #### L 100.0100, L500.4050 ####[facility] [address] [place], [address] RDW SD 51.8 fl High 35.1-43.9 [facility] Comment on above: Order Comment: Order Date: 02/07/25Order Info: 0184-1 - CBCD Performed By: #### L 100.0100, L500.4050 ####[facility] [address] [place], [address] WBC (Bld) [#/Vol] 11.5 10*3/uL High 4.4-11.0 [facility] Comment on above: Order Comment: Order Date: 02/07/25Order Info: 0184-1 - CBCD Performed By: #### L 100.0100, L500.4050 ####[facility] [address] [place], [address] Carbon dioxide, total [Moles /volume] in Central venous bloodOrdered By: Ramone Smiley on 06-10-2025 CO2 [Moles/Vol] 27.9 mmol/L 21.0-32.0 [facility] Chloride assayOrdered By: Richar Smiley on 02-07-2025 Chloride [Moles/Vol] 96 mmol/L Low 98-108 [facility] Comprehensive Metabolic Prof ilon 02-07-2025 Albumin [Mass/Vol] 3.3 g/dL Low 3.4-4.8 [facility] Comment on above: Order Comment: URINE UTOOrder Date: 02/07/25Order Info: 0786-1 - CMP Performed By: #### L 100.0100, L500.4050 ####[facility] [address] [place], [address] Albumin/Globulin [Mass ratio] 1.0 {ratio} Normal 0.9-2.4 [facility] Comment on above: Order Comment: URINE UTOOrder Date: 02/07/25Order Info: 0786-1 - CMP Performed By: #### L 100.0100, L500.4050 ####[facility] [address] [place], [address] ALK PHOS 86 U/L Normal 35-104 [facility] Comment on above: Order Comment: URINE UTOOrder Date: 02/07/25Order Info: 0786-1 - CMP Performed By: #### L 100.0100, L500.4050 ####[facility] [address] [place], [address] ALT [Catalytic activity/Vol] 20 U/L Normal <=34 [facility] Comment on above: Order Comment: URINE UTOOrder Date: 02/07/25Order Info: 0786-1 - CMP Performed By: #### L 100.0100, L500.4050 ####[facility] [address] [place], [address] AST [Catalytic activity/Vol] 29 U/L Normal <=31 [facility] Comment on above: Order Comment: URINE UTOOrder Date: 02/07/25Order Info: 0786-1 - CMP Performed By: #### L 100.0100, L500.4050 ####[facility] [address], [address] Bilirubin [Mass/Vol] 0.25 mg/dL Normal 0.00-1.30 [facility] Comment on above: Order Comment: URINE UTOOrder Date: 02/07/25Order Info: 0786-1 - CMP Performed By: #### L 100.0100, L500.4050 ####[facility] [address] [place], [address] BUN/CRE 17.7 RATIO Normal 10-20 [facility] Comment on above: Order Comment: URINE UTOOrder Date: 02/07/25Order Info: 0786-1 - CMP Performed By: #### L 100.0100, L500.4050 ####[facility] [address], [address] Calcium [Mass/Vol] 10.2 mg/dL Normal 7.6-11.0 [facility] Comment on above: Order Comment: URINE UTOOrder Date: 02/07/25Order Info: 0786-1 - CMP Performed By: #### L 100.0100, L500.4050 ####[facility] [address] [place], [address] Chloride [Moles/Vol] 96 mmol/L Low 98-108 [facility] Comment on above: Order Comment: URINE UTOOrder Date: 02/07/25Order Info: 0786-1 - CMP Performed By: #### L 100.0100, L500.4050 ####[facility] [address] [place], [address] CO2 [Moles/Vol] 27.9 mmol/L Normal 21.0-32.0 [facility] Comment on above: Order Comment: URINE UTOOrder Date: 02/07/25Order Info: 0786-1 - CMP Performed By: #### L 100.0100, L500.4050 ####[facility] [address] [place], [address] Creatinine [Mass/Vol] 1.37 mg/dL High 0.70-1.20 [facility] Comment on above: Order Comment: URINE UTOOrder Date: 02/07/25Order Info: 0786-1 - CMP Performed By: #### L 100.0100, L500.4050 ####[facility] [address] [place], [address] GAP 12 Normal 5-15 [facility] Comment on above: Order Comment: URINE UTOOrder Date: 02/07/25Order Info: 0786-1 - CMP Performed By: #### L 100.0100, L500.4050 ####[facility] [address] [place], [address] GFR/1.73 sq M.predicted among non-blacks MDRD (S/P/Bld) [Vol rate/Area] 39 mL/min/{1.73_m2} Low >60 [facility] Comment on above: Order Comment: URINE UTOOrder Date: 02/07/25Order Info: 0786-1 - CMP Result Comment: mL/m in/1.73m2 CKD-EPI Creatinine Equation (2020) Performed By: #### L 100.0100, L500.4050 ####[facility] [address] [place], [address] Globulin (S) [Mass/Vol] 3.2 g/dL Normal 2.2-4.2 [facility] Comment on above: Order Comment: URINE UTOOrder Date: 02/07/25Order Info: 0786-1 - CMP Performed By: #### L 100.0100, L500.4050 ####[facility] [address] [place], [address] Glucose [Mass/Vol] 254 mg/dL High 70-99 [facility] Comment on above: Order Comment: URINE UTOOrder Date: 02/07/25Order Info: 785-1 - CMP Performed By: #### L 100.0100, L500.4050 ####[facility] [address] [place], [address] Potassium [Moles/Vol] 5.1 mmol/L Normal 3.3-5.1 [facility] Comment on above: Order Comment: URINE UTOOrder Date: 02/07/25Order Info: 785-1 - CMP Performed By: #### L 100.0100, L500.4050 ####[facility] [address] [place], [address] Sodium [Moles/Vol] 136 mmol/L Normal 133-145 [facility] Comment on above: Order Comment: URINE UTOOrder Date: 02/07/25Order Info: 785-1 - CMP Performed By: #### L 100.0100, L500.4050 ####[facility] [address] [place], [address] T PROT 6.5 g/dL Normal 5.9-8.4 [facility] Comment on above: Order Comment: URINE UTOOrder Date: 02/07/25Order Info: 785-1 - CMP Performed By: #### L 100.0100, L500.4050 ####[facility] [address] [place], [address] Urea nitrogen [Mass/Vol] 24 mg/dL High 4-19 [facility] Comment on above: Order Comment: URINE UTOOrder Date: 02/07/25Order Info: 86-1 - CMP Performed By: #### L 100.0100, L500.4050 ####[facility] [address] [place], [address] Eosinophil percentageOrdered By: Ramone Smiley on 02-07-2025 Eosinophils/100 WBC (Bld) 0.0 % 0-5 [facility] Erythrocyte distribution wid th ratioOrdered By: Ramone Smiley on 02-07-2025 Erythrocyte distribution width (RBC) [Ratio] 15.7 % High 11.6-14.6 [facility] Erythrocyte distribution wid th standard deviationOrdered By: Ramone Smiley on 02-07-2025 Erythrocyte distribution width (RBC) [Ratio] 51.8 fl High 35.1-43.9 [facility] Glomerular filtration rate ( GFR) estimation/1.73 sq m using serum, plasma, or whole bOrdered By: Ramone Smiley on 02-07-2025 GFR/1.73 sq M.predicted among non-blacks MDRD (S/P/Bld) [Vol rate/Area] 39 mL/min/{1.73_m2} Low >60 [facility] Hematocrit Auto (Bld) [Volum e fraction]Ordered By: Ramone Smiley on 02-07-2025 Hematocrit (Bld) [Volume fraction] 36.8 % Low 37-47 [facility] Hemoglobin measurementOrdere d By: Ramone Smiley on 02-07-2025 Hemoglobin (Bld) [Mass/Vol] 11.4 g/dL Low 12.0-15.0 [facility] Immature granulocytes/100 WB C Auto (Bld)Ordered By: Ramone Smiley on 02-07-2025 Immature granulocytes/100 WBC (Bld) 0.400 % 0.0-0.9 [facility] MCV (mean corpuscular volume ) determinationOrdered By: Ramone Smiley on 02-07-2025 MCV (RBC) [Entitic vol] 90.2 fL 81-99 [facility] Mean corpuscular hemoglobin (MCH) determinationOrdered By: Ramone Smiley on 02-07-2025 MCH (RBC) [Entitic mass] 27.9 pg 27.0-32.0 [facility] Monocyte percentageOrdered B y: Ramone Smiley on 02-07-2025 Monocytes/100 WBC (Bld) 5.2 % 0-10 [facility] Neutrophil percentageOrdered By: Ramone Smiley on 02-07-2025 Neutrophils/100 WBC (Bld) 87.0 % High 47-70 [facility] No Panel InformationOrdered By: Ramone Smiley on 02-07-2025 29 U/L <32 [facility] Platelet countOrdered By: Richar Smiley on 02-07-2025 Platelets (Bld) [#/Vol] 247 10*3/uL 150-450 [facility] Potassium measurement (mass/ volume)Ordered By: Ramone Smiley on 02-07-2025 Potassium (Unsp spec) [Mass/Vol] 5.1 mmol/L 3.3-5.1 [facility] RBC Auto (Bld) [#/Vol]Ordere d By: Ramone Smiley on 02-07-2025 RBC (Bld) [#/Vol] 4.08 10*6/uL Low 4.2-5.4 [facility] Serum creatinine measurement (mass/volume)Ordered By: Ramone Smiley on 02-07-2025 Creatinine [Mass/Vol] 1.37 mg/dL High 0.70-1.20 [facility] Serum globulin measurementOr dered By: Ramone Smiley on 02-07-2025 Globulin (S) [Mass/Vol] 3.2 g/dL 2.2-4.2 [facility] Serum glucose measurement (m ass/volume)Ordered By: Ramone Smiley on 02-07-2025 Glucose [Mass/Vol] 254 mg/dL High 70-99 [facility] Serum or plasma alanine kelley otransferase (ALT) measurementOrdered By: Ramone Smiley on 02-07-2025 ALT [Catalytic activity/Vol] 20 U/L <35 [facility] Serum or plasma albumin melanie urement (mass/volume)Ordered By: Ramone Smiley on 02-07-2025 Albumin [Mass/Vol] 3.3 g/dL Low 3.4-4.8 [facility] Serum or plasma albumin/glob ulin mass ratioOrdered By: Ramone Smiley on 02-07-2025 Albumin/Globulin [Mass ratio] 1.0 {ratio} 0.9-2.4 [facility] Serum or plasma alkaline lissa sphatase measurementOrdered By: Ramone Smiley on 02-07-2025 ALP [Catalytic activity/Vol] 86 U/L 35-104 [facility] Serum or plasma calcium melanie urement (mass/volume)Ordered By: Ramone Smiley on 02-07-2025 Calcium [Mass/Vol] 10.2 mg/dL 7.6-11.0 [facility] Serum or plasma urea nitroge n measurement (mass/volume)Ordered By: Ramone Smiley on 02-07-2025 Urea nitrogen [Mass/Vol] 24 mg/dL High 4-19 [facility] Sodium levelOrdered By: Ramone Smiley on 02-07-2025 Sodium [Moles/Vol] 136 mmol/L 133-145 [facility] Total proteinOrdered By: Lilliam Smiley on 02-07-2025 Protein [Mass/Vol] 6.5 g/dL 5.9-8.4 [facility] White blood cell (WBC) count Ordered By: Ramone Smiley on 02-07-2025 WBC (Bld) [#/Vol] 11.5 10*3/uL High 4.4-11.0 [facility] Bedside Glucoseon 02-06-2025 FINGERSTICK GLU 190 mg/dL High 74-106 [facility] Comment on above: Result Comment: KATARINA GEMENT OF PATIENT CARE PER NURSING PROTOCOL Performed By: #### L 501.080 ####[facility] [address] [place], [address] FINGERSTICK GLU 237 mg/dL High 74-106 [facility] Comment on above: Result Comment: KATARINA GEMENT OF PATIENT CARE PER NURSING PROTOCOL Performed By: #### L 501.080 ####[facility] [address] [place], [place], [address] Discharge Instructionon Discharge Instruction Normal [facility] Electrocardiogram reportOrde red By: Marcelina Soto on 02-06-2025 EKG study [facility] Work Phone: [facility] deOrdered By: Lucio Borden on 02-06-2025 Glucose [Mass/Vol] 190 mg/dL High 74-106 [facility] Anion gap in Serum or Plasma Ordered By: Lucio Borden on 02-05-2025 Anion gap [Moles/Vol] 15 mmol/L 5-15 [facility] BUN/creatinine ratioOrdered By: Lucio Borden on 02-05-2025 Urea nitrogen/Creatinine [Mass ratio] 16.1 mg/mg 10-20 [facility] Basic Metabolic Profile (BMP )on 02-05-2025 BUN/CRE 16.1 RATIO Normal -20 [facility] Comment on above: Performed By: #### L 500.2500 ####[facility] [address] [place], [address] Calcium [Mass/Vol] 9.1 mg/dL Normal 7.6-11.0 [facility] Comment on above: Performed By: #### L 500.2500 ####[facility] [address] [place], [address] Chloride [Moles/Vol] 94 mmol/L Low 98-108 [facility] Comment on above: Performed By: #### L 500.2500 ####[facility] [address] [place], [address] CO2 [Moles/Vol] 26.4 mmol/L Normal 21.0-32.0 [facility] Comment on above: Performed By: #### L 500.2500 ####[facility] [address] [place], [address] Creatinine [Mass/Vol] 1.06 mg/dL Normal 0.70-1.20 [facility] Comment on above: Performed By: #### L 500.2500 ####[facility] [address] [place], [address] ECRCL 39.38 ml/min Low 50-250 [facility] Comment on above: Performed By: #### L 500.2500 ####[facility] [address] [place], [address] GAP 15 Normal 5-15 [facility] Comment on above: Performed By: #### L 500.2500 ####[facility] [address] [place], [address] GFR/1.73 sq M.predicted among non-blacks MDRD (S/P/Bld) [Vol rate/Area] 53 mL/min/{1.73_m2} Low >60 [facility] Comment on above: Result Comment: mL/m in/1.73m2 CKD-EPI Creatinine Equation (2020) Performed By: #### L 500.2500 ####[facility] [address] [place], [address] Glucose [Mass/Vol] 272 mg/dL High 70-99 [facility] Comment on above: Performed By: #### L 500.2500 ####[facility] [address] [place], [address] Potassium [Moles/Vol] 4.2 mmol/L Normal 3.3-5.1 [facility] Comment on above: Performed By: #### L 500.2500 ####[facility] [address] [place], [address] Sodium [Moles/Vol] 135 mmol/L Normal 133-145 [facility] Comment on above: Performed By: #### L 500.2500 ####[facility] [address] [place], [address] Urea nitrogen [Mass/Vol] 17 mg/dL Normal 4-19 [facility] Comment on above: Performed By: #### L 500.2500 ####[facility] [address] [place], [address] Bedside Glucoseon 02-05-2025 FINGERSTICK GLU 156 mg/dL High 74-106 [facility] Comment on above: Result Comment: KATARINA GEMENT OF PATIENT CARE PER NURSING PROTOCOL Performed By: #### L 501.080 ####[facility] [address] [place], [address] FINGERSTICK GLU 128 mg/dL High 74-106 [facility] Comment on above: Result Comment: KATARINA GEMENT OF PATIENT CARE PER NURSING PROTOCOL Performed By: #### L 501.080 ####[facility] [address] [place], [address] FINGERSTICK GLU 296 mg/dL High 74-106 [facility] Comment on above: Result Comment: KATARINA GEMENT OF PATIENT CARE PER NURSING PROTOCOL Performed By: #### L 501.080 ####[facility] [address] [place], [address] FINGERSTICK GLU 238 mg/dL High 74-106 [facility] Comment on above: Result Comment: KATARINA GEMENT OF PATIENT CARE PER NURSING PROTOCOL Performed By: #### L 501.080 ####[facility] [address] [place], [address] Carbon dioxide, total [Moles /volume] in Central venous bloodOrdered By: Lucio Borden on 02-05-2025 CO2 [Moles/Vol] 26.4 mmol/L 21.0-32.0 [facility] Chloride assayOrdered By: Chen Borden on 02-05-2025 Chloride [Moles/Vol] 94 mmol/L Low 98-108 [facility] Glomerular filtration rate ( GFR) estimation/1.73 sq m using serum, plasma, or whole bOrdered By: Lucio Borden on 02-05-2025 GFR/1.73 sq M.predicted among non-blacks MDRD (S/P/Bld) [Vol rate/Area] 53 mL/min/{1.73_m2} Low >60 [facility] Potassium measurement (mass/ volume)Ordered By: Lucio Borden on 02-05-2025 Potassium (Unsp spec) [Mass/Vol] 4.2 mmol/L 3.3-5.1 [facility] Serum creatinine measurement (mass/volume)Ordered By: Lucio Borden on 02-05-2025 Creatinine [Mass/Vol] 1.06 mg/dL 0.70-1.20 [facility] Serum glucose measurement (m ass/volume)Ordered By: Lucio Borden on 02-05-2025 Glucose [Mass/Vol] 272 mg/dL High 70-99 [facility] Serum or plasma calcium melanie urement (mass/volume)Ordered By: Lucio Borden on 02-05-2025 Calcium [Mass/Vol] 9.1 mg/dL 7.6-11.0 [facility] Serum or plasma urea nitroge n measurement (mass/volume)Ordered By: Lucio Borden on 02-05-2025 Urea nitrogen [Mass/Vol] 17 mg/dL 4-19 [facility] Sodium levelOrdered By: Lucio Borden on 02-05-2025 Sodium [Moles/Vol] 135 mmol/L 133-145 [facility] 12 Lead EKGon 02-04-2025 12 Lead EKG Normal [facility] Absolute lymphocyte countOrd ered By: Aj Holley on 02-04-2025 Lymphocytes Auto (Unsp spec) [#/Vol] 1.75 10*3/uL 0.83-4.51 [facility] Anion gap in Serum or Plasma Ordered By: Aj Holley on 02-04-2025 Anion gap [Moles/Vol] 16 mmol/L High 5-15 [facility] Automated lymphocyte count a s percentage of total leukocytesOrdered By: Aj Holley on 02-04-2025 Lymphocytes/100 WBC Auto (Unsp spec) 15.7 % Low 19-41 [facility] BUN/creatinine ratioOrdered By: Aj Holley on 02-04-2025 Urea nitrogen/Creatinine [Mass ratio] 13.2 mg/mg 10- [facility] Basic Metabolic Profile (BMP )on 02-04-2025 BUN/CRE 13.2 RATIO Normal -20 [facility] Comment on above: Performed By: #### L 500.2500, L100.0100 ####[facility] [address] [place], [address] Calcium [Mass/Vol] 8.9 mg/dL Normal 7.6-11.0 [facility] Comment on above: Performed By: #### L 500.2500, L100.0100 ####[facility] [address] [place], [address] Chloride [Moles/Vol] 95 mmol/L Low 98-108 [facility] Comment on above: Performed By: #### L 500.2500, L100.0100 ####[facility] [address] [place], [address] CO2 [Moles/Vol] 25.9 mmol/L Normal 21.0-32.0 [facility] Comment on above: Performed By: #### L 500.2500, L100.0100 ####[facility] [address] [place], [address] Creatinine [Mass/Vol] 1.14 mg/dL Normal 0.70-1.20 [facility] Comment on above: Performed By: #### L 500.2500, L100.0100 ####[facility] [address] [place], [address] ECRCL 37.95 ml/min Low 50-250 [facility] Comment on above: Performed By: #### L 500.2500, L100.0100 ####[facility] [address] [place], [address] GAP 16 High 5-15 [facility] Comment on above: Performed By: #### L 500.2500, L100.0100 ####[facility] [address] [place], [address] GFR/1.73 sq M.predicted among non-blacks MDRD (S/P/Bld) [Vol rate/Area] 48 mL/min/{1.73_m2} Low >60 [facility] Comment on above: Result Comment: mL/m in/1.73m2 CKD-EPI Creatinine Equation (2020) Performed By: #### L 500.2500, L100.0100 ####[facility] [address] [place], [address] Glucose [Mass/Vol] 132 mg/dL High 70-99 [facility] Comment on above: Performed By: #### L 500.2500, L100.0100 ####[facility] [address] [place], [address] Potassium [Moles/Vol] 3.9 mmol/L Normal 3.3-5.1 [facility] Comment on above: Result Comment: Hemo lysis present, Results??could be affected.?? Performed By: #### L 500.2500, L100.0100 ####[facility] [address] [place], [address] Sodium [Moles/Vol] 137 mmol/L Normal 133-145 [facility] Comment on above: Performed By: #### L 500.2500, L100.0100 ####[facility] [address] [place], [address] Urea nitrogen [Mass/Vol] 15 mg/dL Normal 4-19 [facility] Comment on above: Performed By: #### L 500.2500, L100.0100 ####[facility] [address] [place], [address] Basophil percentageOrdered B y: Aj Holley on 02-04-2025 Basophils/100 WBC (Bld) 0.2 % 0-1 [facility] Bedside Glucoseon 02-04-2025 FINGERSTICK GLU 179 mg/dL High 74-106 [facility] Comment on above: Result Comment: KATARINA GEMENT OF PATIENT CARE PER NURSING PROTOCOL Performed By: #### L 501.080 ####[facility] [address] [place], [address] FINGERSTICK GLU 240 mg/dL High 74-106 [facility] Comment on above: Result Comment: KATARINA GEMENT OF PATIENT CARE PER NURSING PROTOCOL Performed By: #### L 501.080 ####[facility] [address] [place], [address] CBC W/Diff, Automatedon 06-0 Absolute Lymph 1.75 X10 3/uL Normal 0.83-4.51 [facility] Comment on above: Performed By: #### L 500.2500, L100.0100 ####[facility] [address] [place], [address] Absolute Neut 8.4 X10 3/uL High 2.0-7.7 [facility] Comment on above: Performed By: #### L 500.2500, L100.0100 ####[facility] [address] [place], [address] Basophils/100 WBC (Bld) 0.2 % Normal 0-1 [facility] Comment on above: Performed By: #### L 500.2500, L100.0100 ####[facility] [address] [place], [address] Eosinophils/100 WBC (Bld) 1.7 % Normal 0-5 [facility] Comment on above: Performed By: #### L 500.2500, L100.0100 ####[facility] [address] [place], [address] Erythrocyte distribution width (RBC) [Ratio] 15.9 % High 11.6-14.6 [facility] Comment on above: Performed By: #### L 500.2500, L100.0100 ####[facility] [address] [place], [address] Hematocrit (Bld) [Volume fraction] 34.1 % Low 37-47 [facility] Comment on above: Performed By: #### L 500.2500, L100.0100 ####[facility] [address] [place], [address] Hemoglobin (Bld) [Mass/Vol] 10.7 g/dL Low 12.0-15.0 [facility] Comment on above: Performed By: #### L 500.2500, L100.0100 ####[facility] [address] [place], [address] IG% 0.400 Normal 0.0-0.9 [facility] Comment on above: Result Comment: IG% - Immature Granulocytes (promyelocytes, myelocytes andmetamyelocytes) > 1% indicates that a LEFT SHIFT is Present. Performed By: #### L 500.2500, L100.0100 ####[facility] [address] [place], [address] Lymphocytes/100 WBC (Bld) 15.7 % Low 19-41 [facility] Comment on above: Performed By: #### L 500.2500, L100.0100 ####[facility] [address] [place], [address] MCH (RBC) [Entitic mass] 27.9 pg Normal 27.0-32.0 [facility] Comment on above: Performed By: #### L 500.2500, L100.0100 ####[facility] [address] [place], [address] MCHC (RBC) [Mass/Vol] 31.4 g/dL Low 32-36 [facility] Comment on above: Performed By: #### L 500.2500, L100.0100 ####[facility] [address] [place], [address] MCV (RBC) [Entitic vol] 88.8 fL Normal 81-99 [facility] Comment on above: Performed By: #### L 500.2500, L100.0100 ####[facility] [address] [place], [address] Monocytes/100 WBC (Bld) 6.6 % Normal 0-10 [facility] Comment on above: Performed By: #### L 500.2500, L100.0100 ####[facility] [address] [place], [address] Neutrophils/100 WBC (Bld) 75.4 % High 47-70 [facility] Comment on above: Performed By: #### L 500.2500, L100.0100 ####[facility] [address] [place], [address] Nucleated RBC (Bld) [#/Vol] 0 10*3/uL Normal 0-5 [facility] Comment on above: Performed By: #### L 500.2500, L100.0100 ####[facility] [address] [place], [address] Platelet mean volume (Bld) [Entitic vol] 11.3 fL Normal 6.2-12.0 [facility] Comment on above: Performed By: #### L 500.2500, L100.0100 ####[facility] [address] [place], [address] Platelets (Bld) [#/Vol] 185 10*3/uL Normal 150-450 [facility] Comment on above: Performed By: #### L 500.2500, L100.0100 ####[facility] [address] [place], [address] RBC (Bld) [#/Vol] 3.84 10*6/uL Low 4.2-5.4 [facility] Comment on above: Performed By: #### L 500.2500, L100.0100 ####[facility] [address] [place], [address] RDW SD 51.4 fl High 35.1-43.9 [facility] Comment on above: Performed By: #### L 500.2500, L100.0100 ####[facility] [address] [place], [address] WBC (Bld) [#/Vol] 11.2 10*3/uL High 4.4-11.0 [facility] Comment on above: Performed By: #### L 500.2500, L100.0100 ####[facility] [address] [place], [address] CTA Chest W/WO Contraston CTA Chest W/WO Contrast Normal [facility] Carbon dioxide, total [Moles /volume] in Central venous bloodOrdered By: Aj Holley on 02-04-2025 CO2 [Moles/Vol] 25.9 mmol/L 21.0-32.0 [facility] Chest PA and Lateralon 02-04 Chest PA and Lateral Normal [facility] Chloride assayOrdered By: Dahlia Holley on 02-04-2025 Chloride [Moles/Vol] 95 mmol/L Low 98-108 [facility] Emergency Department Summary on 02-04-2025 Emergency Department Summary Normal [facility] Eosinophil percentageOrdered By: Aj Holley on 02-04-2025 Eosinophils/100 WBC (Bld) 1.7 % 0-5 [facility] Erythrocyte distribution wid th ratioOrdered By: Aj Holley on 02-04-2025 Erythrocyte distribution width (RBC) [Ratio] 15.9 % High 11.6-14.6 [facility] Erythrocyte distribution wid th standard deviationOrdered By: Aj Holley on 02-04-2025 Erythrocyte distribution width (RBC) [Ratio] 51.4 fl High 35.1-43.9 [facility] Glomerular filtration rate ( GFR) estimation/1.73 sq m using serum, plasma, or whole bOrdered By: Aj Holley on 02-04-2025 GFR/1.73 sq M.predicted among non-blacks MDRD (S/P/Bld) [Vol rate/Area] 48 mL/min/{1.73_m2} Low >60 [facility] H AND P Exam - Hospitaliston 02-04-2025 H&P Exam - Hospitalist Normal [facility] Hematocrit Auto (Bld) [Volum e fraction]Ordered By: Aj Holley on 02-04-2025 Hematocrit (Bld) [Volume fraction] 34.1 % Low 37-47 [facility] Hemoglobin measurementOrdere d By: Aj Holley on 02-04-2025 Hemoglobin (Bld) [Mass/Vol] 10.7 g/dL Low 12.0-15.0 [facility] Immature granulocytes/100 WB C Auto (Bld)Ordered By: Aj Holley on 02-04-2025 Immature granulocytes/100 WBC (Bld) 0.400 % 0.0-0.9 [facility] L499.0042on 02-04-2025 Trop T High Sen 133 ng/L Invalid Interpretation Code <=14 [facility] Comment on above: Result Comment: Crit ical Result(s) Called at 0915: by: SHARONA EASLEY. ??Results read back by same. Performed By: #### L 499.0042 ####[facility] [address] [place], [address] L499.0043on 02-04-2025 Trop T High Sen 139 ng/L Invalid Interpretation Code <=14 [facility] Comment on above: Result Comment: Crit ical Result(s) Called at 1125: by: Michael SEGAL to [facility].??Results read back by same. Performed By: #### L 499.0043 ####[facility] [address] [place], [address] L501.4021on 02-04-2025 Trop T High Sen 139 ng/L Invalid Interpretation Code <=14 [facility] Comment on above: Result Comment: Crit ical Result(s) Called at 0809: by: SHARONA GO.??Results read back by same. Performed By: #### L 501.4021, L503.7505 ####[facility] [address] [place], [address] L503.7505on 02-04-2025 Natriuretic peptide B (Bld) [Mass/Vol] 6247 pg/mL High <=1800 [facility] Comment on above: Result Comment: Hear t Failure Unlikely: < 300 pg/mLHeart Failure Likely< 50 Years: > 450 pg/mL50-75 Years: > 900 pg/mL>75 Years: > 1800 pg/mL Performed By: #### L 501.4021, L503.7505 ####[facility] [address] [place], [address] MCV (mean corpuscular volume ) determinationOrdered By: Aj Holley on 02-04-2025 MCV (RBC) [Entitic vol] 88.8 fL 81-99 [facility] Mean corpuscular hemoglobin (MCH) determinationOrdered By: Aj Holley on 02-04-2025 MCH (RBC) [Entitic mass] 27.9 pg 27.0-32.0 [facility] Monocyte percentageOrdered B y: Aj Holley on 02-04-2025 Monocytes/100 WBC (Bld) 6.6 % 0-10 [facility] Natriuretic peptide.B prohor hayley N-Terminal [Mass/volume] in Serum or PlasmaOrdered By: Aj Holley on 02-04-2025 Natriuretic peptide.B prohormone N-Terminal [Mass/Vol] 6247 pg/mL High <1800 [facility] Neutrophil percentageOrdered By: Aj Holley on 02-04-2025 Neutrophils/100 WBC (Bld) 75.4 % High 47-70 [facility] Platelet countOrdered By: Dahlia Holley on 02-04-2025 Platelets (Bld) [#/Vol] 185 10*3/uL 150-450 [facility] Potassium measurement (mass/ volume)Ordered By: Aj Holley on 02-04-2025 Potassium (Unsp spec) [Mass/Vol] 3.9 mmol/L 3.3-5.1 [facility] RBC Auto (Bld) [#/Vol]Ordere d By: Aj Holley on 02-04-2025 RBC (Bld) [#/Vol] 3.84 10*6/uL Low 4.2-5.4 [facility] Serum creatinine measurement (mass/volume)Ordered By: Aj Holley on 02-04-2025 Creatinine [Mass/Vol] 1.14 mg/dL 0.70-1.20 [facility] Serum glucose measurement (m ass/volume)Ordered By: Aj Holley on 02-04-2025 Glucose [Mass/Vol] 132 mg/dL High 70-99 [facility] Serum or plasma calcium melanie urement (mass/volume)Ordered By: Aj Holley on 02-04-2025 Calcium [Mass/Vol] 8.9 mg/dL 7.6-11.0 [facility] Serum or plasma urea nitroge n measurement (mass/volume)Ordered By: Aj Holley on 02-04-2025 Urea nitrogen [Mass/Vol] 15 mg/dL 4-19 [facility] Sodium levelOrdered By: Reynaldo Holley on 02-04-2025 Sodium [Moles/Vol] 137 mmol/L 133-145 [facility] Troponin T.cardiac [Mass/vol ume] in Serum or Plasma by High sensitivity methodOrdered By: Aj Holley on 02-04-2025 Troponin T.cardiac High sensitivity method [Mass/Vol] 139 ng/L High <14 [facility] Troponin T.cardiac High sensitivity method [Mass/Vol] 133 ng/L High <14 [facility] Troponin T.cardiac High sensitivity method [Mass/Vol] 139 ng/L High <14 [facility] White blood cell (WBC) count Ordered By: Aj Holley on 02-04-2025 WBC (Bld) [#/Vol] 11.2 10*3/uL High 4.4-11.0 [facility] Cardiology Visit Reporton Cardiology Visit Report Normal [facility] Basic Metabolic Profile (BMP )on 01-30-2025 BUN Normal 4-19 [facility] Comment on above: Result Comment: Canc elled via OM: Order cancelled - Patient discharged Performed By: #### L 500.2500, L100.0100 ####[facility] [address] [place], [address] BUN/CRE Normal 10-20 [facility] Comment on above: Result Comment: Canc elled via OM: Order cancelled - Patient discharged Performed By: #### L 500.2500, L100.0100 ####[facility] [address] [place], [address] Calcium Normal 7.6-11.0 [facility] Comment on above: Result Comment: Canc elled via OM: Order cancelled - Patient discharged Performed By: #### L 500.2500, L100.0100 ####[facility] [facility] [address] [place], [address] CL Normal 98-108 [facility] Comment on above: Result Comment: Canc elled via OM: Order cancelled - Patient discharged Performed By: #### L 500.2500, L100.0100 ####[facility] [address] [place], [address] CO2 Normal 21.0-32.0 [facility] Comment on above: Result Comment: Canc elled via OM: Order cancelled - Patient discharged Performed By: #### L 500.2500, L100.0100 ####[facility] [address] [place], [address] CREAT,SERUM Normal 0.70-1.20 [facility] Comment on above: Result Comment: Canc elled via OM: Order cancelled - Patient discharged Performed By: #### L 500.2500, L100.0100 ####[facility] [address] [place], [address] eGFR Normal >60 [facility] Comment on above: Result Comment: Canc elled via OM: Order cancelled - Patient discharged Performed By: #### L 500.2500, L100.0100 ####[facility] [address] [place], [address] GAP Normal 5-15 [facility] Comment on above: Result Comment: Canc elled via OM: Order cancelled - Patient discharged Performed By: #### L 500.2500, L100.0100 ####[facility] [address] [place], [address] GLU Normal 70-99 [facility] Comment on above: Result Comment: Canc elled via OM: Order cancelled - Patient discharged Performed By: #### L 500.2500, L100.0100 ####[facility] [address] [place], [address] Potassium Normal 3.3-5.1 [facility] Comment on above: Result Comment: Canc elled via OM: Order cancelled - Patient discharged Performed By: #### L 500.2500, L100.0100 ####[facility] [address] [place], [address] Basic Metabolic Profile (BMP) Normal 133-145 [facility] Comment on above: Result Comment: Canc elled via OM: Order cancelled - Patient discharged Performed By: #### L 500.2500, L100.0100 ####[facility] [address] [place], [address] CBC W/Diff, Automatedon 06-0 2-2024 Absolute Neut Normal 2.0-7.7 [facility] Comment on above: Result Comment: Canc elled via OM: Order cancelled - Patient discharged Performed By: #### L 500.2500, L100.0100 ####[facility] [address] [place], [address] HCT Normal 37-47 [facility] Comment on above: Result Comment: Canc elled via OM: Order cancelled - Patient discharged Performed By: #### L 500.2500, L100.0100 ####[facility] [address] [place], [address] HGB Normal 12.0-15.0 [facility] Comment on above: Result Comment: Canc elled via OM: Order cancelled - Patient discharged Performed By: #### L 500.2500, L100.0100 ####[facility] [address] [place], [address] MCH Normal 27.0-32.0 [facility] Comment on above: Result Comment: Canc elled via OM: Order cancelled - Patient discharged Performed By: #### L 500.2500, L100.0100 ####[facility] [address] [place], [address] MCHC Normal 32-36 [facility] Comment on above: Result Comment: Canc elled via OM: Order cancelled - Patient discharged Performed By: #### L 500.2500, L100.0100 ####[facility] [address] [place], [address] MCV Normal 81-99 [facility] Comment on above: Result Comment: Canc elled via OM: Order cancelled - Patient discharged Performed By: #### L 500.2500, L100.0100 ####[facility] [address] [place], [address] NEUT% Normal 47-70 [facility] Comment on above: Result Comment: Canc elled via OM: Order cancelled - Patient discharged Performed By: #### L 500.2500, L100.0100 ####[facility] [address] [place], [address] PLT Normal 150-450 [facility] Comment on above: Result Comment: Canc elled via OM: Order cancelled - Patient discharged Performed By: #### L 500.2500, L100.0100 ####[facility] [address] [place], [address] RBC Normal 4.2-5.4 [facility] Comment on above: Result Comment: Canc elled via OM: Order cancelled - Patient discharged Performed By: #### L 500.2500, L100.0100 ####[facility] [address] [place], [address] RDW CV Normal 11.6-14.6 [facility] Comment on above: Result Comment: Canc elled via OM: Order cancelled - Patient discharged Performed By: #### L 500.2500, L100.0100 ####[facility] [address] [place], [address] RDW SD Normal 35.1-43.9 [facility] Comment on above: Result Comment: Canc elled via OM: Order cancelled - Patient discharged Performed By: #### L 500.2500, L100.0100 ####[facility] [address] [place], [address] WBC Normal 4.4-11.0 [facility] Comment on above: Result Comment: Canc elled via OM: Order cancelled - Patient discharged Performed By: #### L 500.2500, L100.0100 ####[facility] [address] [place], [address] Basic Metabolic Profile (BMP )on 01-29-2025 BUN Normal 4-19 [facility] Comment on above: Result Comment: Canc elled via OM: Order cancelled - Patient discharged Performed By: #### L 100.0100, L500.2500 ####[facility] [address] [place], [address] BUN/CRE Normal 10-20 [facility] Comment on above: Result Comment: Canc elled via OM: Order cancelled - Patient discharged Performed By: #### L 100.0100, L500.2500 ####[facility] [address] [place], [address] Calcium Normal 7.6-11.0 [facility] Comment on above: Result Comment: Canc elled via OM: Order cancelled - Patient discharged Performed By: #### L 100.0100, L500.2500 ####[facility] [address] [place], [address] CL Normal 98-108 [facility] Comment on above: Result Comment: Canc elled via OM: Order cancelled - Patient discharged Performed By: #### L 100.0100, L500.2500 ####[facility] [address] [place], [address] CO2 Normal 21.0-32.0 [facility] Comment on above: Result Comment: Canc elled via OM: Order cancelled - Patient discharged Performed By: #### L 100.0100, L500.2500 ####[facility] [address] [place], [address] CREAT,SERUM Normal 0.70-1.20 [facility] Comment on above: Result Comment: Canc elled via OM: Order cancelled - Patient discharged Performed By: #### L 100.0100, L500.2500 ####[facility] [address] [place], [address] eGFR Normal >60 [facility] Comment on above: Result Comment: Canc elled via OM: Order cancelled - Patient discharged Performed By: #### L 100.0100, L500.2500 ####[facility] [address] [place], [address] GAP Normal 5-15 [facility] Comment on above: Result Comment: Canc elled via OM: Order cancelled - Patient discharged Performed By: #### L 100.0100, L500.2500 ####[facility] [address] [place], [address] GLU Normal 70-99 [facility] Comment on above: Result Comment: Canc elled via OM: Order cancelled - Patient discharged Performed By: #### L 100.0100, L500.2500 ####[facility] [address] [place], [address] Potassium Normal 3.3-5.1 [facility] Comment on above: Result Comment: Canc elled via OM: Order cancelled - Patient discharged Performed By: #### L 100.0100, L500.2500 ####[facility] [address] [place], [address] Basic Metabolic Profile (BMP) Normal 133-145 [facility] Comment on above: Result Comment: Canc elled via OM: Order cancelled - Patient discharged Performed By: #### L 100.0100, L500.2500 ####[facility] [address] [place], [address] CBC W/Diff, Automatedon 06-0 -2024 Absolute Neut Normal 2.0-7.7 [facility] Comment on above: Result Comment: Canc elled via OM: Order cancelled - Patient discharged Performed By: #### L 100.0100, L500.2500 ####[facility] [address] [place], [address] HCT Normal 37-47 [facility] Comment on above: Result Comment: Canc elled via OM: Order cancelled - Patient discharged Performed By: #### L 100.0100, L500.2500 ####[facility] [address] [place], [address] HGB Normal 12.0-15.0 [facility] Comment on above: Result Comment: Canc elled via OM: Order cancelled - Patient discharged Performed By: #### L 100.0100, L500.2500 ####[facility] [address] [place], [address] MCH Normal 27.0-32.0 [facility] Comment on above: Result Comment: Canc elled via OM: Order cancelled - Patient discharged Performed By: #### L 100.0100, L500.2500 ####[facility] [address] [place], [address] MCHC Normal 32-36 [facility] Comment on above: Result Comment: Canc elled via OM: Order cancelled - Patient discharged Performed By: #### L 100.0100, L500.2500 ####[facility] [address] [place], [address] MCV Normal 81-99 [facility] Comment on above: Result Comment: Canc elled via OM: Order cancelled - Patient discharged Performed By: #### L 100.0100, L500.2500 ####[facility] [address] [place], [address] NEUT% Normal 47-70 [facility] Comment on above: Result Comment: Canc elled via OM: Order cancelled - Patient discharged Performed By: #### L 100.0100, L500.2500 ####[facility] [address] [place], [address] PLT Normal 150-450 [facility] Comment on above: Result Comment: Canc elled via OM: Order cancelled - Patient discharged Performed By: #### L 100.0100, L500.2500 ####[facility] [address] [place], [address] RBC Normal 4.2-5.4 [facility] Comment on above: Result Comment: Canc elled via OM: Order cancelled - Patient discharged Performed By: #### L 100.0100, L500.2500 ####[facility] [address] [place], [address] RDW CV Normal 11.6-14.6 [facility] Comment on above: Result Comment: Canc elled via OM: Order cancelled - Patient discharged Performed By: #### L 100.0100, L500.2500 ####[facility] [address] [place], [address] RDW SD Normal 35.1-43.9 [facility] Comment on above: Result Comment: Canc elled via OM: Order cancelled - Patient discharged Performed By: #### L 100.0100, L500.2500 ####[facility] [address] [place], [address] WBC Normal 4.4-11.0 [facility] Comment on above: Result Comment: Canc elled via OM: Order cancelled - Patient discharged Performed By: #### L 100.0100, L500.2500 ####[facility] [address] [place], [address] Basic Metabolic Profile (BMP )on 01-28-2025 BUN Normal 4-19 [facility] Comment on above: Result Comment: Canc elled via OM: Order cancelled - Patient discharged Performed By: #### L 500.2500, L100.0100 ####[facility] [address] [place], [address] BUN/CRE Normal 10-20 [facility] Comment on above: Result Comment: Canc elled via OM: Order cancelled - Patient discharged Performed By: #### L 500.2500, L100.0100 ####[facility] [address] [place], [address] Calcium Normal 7.6-11.0 [facility] Comment on above: Result Comment: Canc elled via OM: Order cancelled - Patient discharged Performed By: #### L 500.2500, L100.0100 ####[facility] [address] [place], [address] CL Normal 98-108 [facility] Comment on above: Result Comment: Canc elled via OM: Order cancelled - Patient discharged Performed By: #### L 500.2500, L100.0100 ####[facility] [address] [place], [address] CO2 Normal 21.0-32.0 [facility] Comment on above: Result Comment: Canc elled via OM: Order cancelled - Patient discharged Performed By: #### L 500.2500, L100.0100 ####[facility] [address] [place], [address] CREAT,SERUM Normal 0.70-1.20 [facility] Comment on above: Result Comment: Canc elled via OM: Order cancelled - Patient discharged Performed By: #### L 500.2500, L100.0100 ####[facility] [address] [place] [place], [address] eGFR Normal >60 [facility] Comment on above: Result Comment: Canc elled via OM: Order cancelled - Patient discharged Performed By: #### L 500.2500, L100.0100 ####[facility] [address] [place], [address] GAP Normal 5-15 [facility] Comment on above: Result Comment: Canc elled via OM: Order cancelled - Patient discharged Performed By: #### L 500.2500, L100.0100 ####[facility] [address] [place], [address] GLU Normal 70-99 [facility] Comment on above: Result Comment: Canc elled via OM: Order cancelled - Patient discharged Performed By: #### L 500.2500, L100.0100 ####[facility] [address] [place], [address] Potassium Normal 3.3-5.1 [facility] Comment on above: Result Comment: Canc elled via OM: Order cancelled - Patient discharged Performed By: #### L 500.2500, L100.0100 ####[facility] [address] [place], [address] Basic Metabolic Profile (BMP) Normal 133-145 [facility] Comment on above: Result Comment: Canc elled via OM: Order cancelled - Patient discharged Performed By: #### L 500.2500, L100.0100 ####[facility] [address] [place], [address] CBC W/Diff, Automatedon 05-3 Absolute Neut Normal 2.0-7.7 [facility] Comment on above: Result Comment: Canc elled via OM: Order cancelled - Patient discharged Performed By: #### L 500.2500, L100.0100 ####[facility] [address] [place], [address] HCT Normal 37-47 [facility] Comment on above: Result Comment: Canc elled via OM: Order cancelled - Patient discharged Performed By: #### L 500.2500, L100.0100 ####[facility] [address] [place], [address] HGB Normal 12.0-15.0 [facility] Comment on above: Result Comment: Canc elled via OM: Order cancelled - Patient discharged Performed By: #### L 500.2500, L100.0100 ####[facility] [address] [place], [address] MCH Normal 27.0-32.0 [facility] Comment on above: Result Comment: Canc elled via OM: Order cancelled - Patient discharged Performed By: #### L 500.2500, L100.0100 ####[facility] [address] [place], [address] MCHC Normal 32-36 [facility] Comment on above: Result Comment: Canc elled via OM: Order cancelled - Patient discharged Performed By: #### L 500.2500, L100.0100 ####[facility] [address] [place], [address] MCV Normal 81-99 [facility] Comment on above: Result Comment: Canc elled via OM: Order cancelled - Patient discharged Performed By: #### L 500.2500, L100.0100 ####[facility] [address] [place], [address] NEUT% Normal 47-70 [facility] Comment on above: Result Comment: Canc elled via OM: Order cancelled - Patient discharged Performed By: #### L 500.2500, L100.0100 ####[facility] [address] [place], [address] PLT Normal 150-450 [facility] Comment on above: Result Comment: Canc elled via OM: Order cancelled - Patient discharged Performed By: #### L 500.2500, L100.0100 ####[facility] [address] [place], [address] RBC Normal 4.2-5.4 [facility] Comment on above: Result Comment: Canc elled via OM: Order cancelled - Patient discharged Performed By: #### L 500.2500, L100.0100 ####[facility] [address] [place], [address] RDW CV Normal 11.6-14.6 [facility] Comment on above: Result Comment: Canc elled via OM: Order cancelled - Patient discharged Performed By: #### L 500.2500, L100.0100 ####[facility] [address] [place], [address] RDW SD Normal 35.1-43.9 [facility] Comment on above: Result Comment: Canc elled via OM: Order cancelled - Patient discharged Performed By: #### L 500.2500, L100.0100 ####[facility] [address] [place], [address] WBC Normal 4.4-11.0 [facility] Comment on above: Result Comment: Canc elled via OM: Order cancelled - Patient discharged Performed By: #### L 500.2500, L100.0100 ####[facility] [address] [place], [address] Basic Metabolic Profile (BMP )on 01-27-2025 BUN Normal 4-19 [facility] Comment on above: Result Comment: Canc elled via OM: Order cancelled - Patient discharged Performed By: #### L 500.2500, L100.0100 ####[facility] [address] [place], [address] BUN/CRE Normal 10-20 [facility] Comment on above: Result Comment: Canc elled via OM: Order cancelled - Patient discharged Performed By: #### L 500.2500, L100.0100 ####[facility] [address] [place], [address] Calcium Normal 7.6-11.0 [facility] Comment on above: Result Comment: Canc elled via OM: Order cancelled - Patient discharged Performed By: #### L 500.2500, L100.0100 ####[facility] [address] [place], [address] CL Normal 98-108 [facility] Comment on above: Result Comment: Canc elled via OM: Order cancelled - Patient discharged Performed By: #### L 500.2500, L100.0100 ####[facility] [address] [place], [address] CO2 Normal 21.0-32.0 [facility] Comment on above: Result Comment: Canc elled via OM: Order cancelled - Patient discharged Performed By: #### L 500.2500, L100.0100 ####[facility] [address] [place], [address] CREAT,SERUM Normal 0.70-1.20 [facility] Comment on above: Result Comment: Canc elled via OM: Order cancelled - Patient discharged Performed By: #### L 500.2500, L100.0100 ####[facility] [address] [place], [address] eGFR Normal >60 [facility] Comment on above: Result Comment: Canc elled via OM: Order cancelled - Patient discharged Performed By: #### L 500.2500, L100.0100 ####[facility] [address] [place], [address] GAP Normal 5-15 [facility] Comment on above: Result Comment: Canc elled via OM: Order cancelled - Patient discharged Performed By: #### L 500.2500, L100.0100 ####[facility] [address] [place], [address] GLU Normal 70-99 [facility] Comment on above: Result Comment: Canc elled via OM: Order cancelled - Patient discharged Performed By: #### L 500.2500, L100.0100 ####[facility] [address] [place], [address] Potassium Normal 3.3-5.1 [facility] Comment on above: Result Comment: Canc elled via OM: Order cancelled - Patient discharged Performed By: #### L 500.2500, L100.0100 ####[facility] [address] [place], [address] Basic Metabolic Profile (BMP) Normal 133-145 [facility] Comment on above: Result Comment: Canc elled via OM: Order cancelled - Patient discharged Performed By: #### L 500.2500, L100.0100 ####[facility] [address] [place], [address] CBC W/Diff, Automatedon 05-3 0-2024 Absolute Neut Normal 2.0-7.7 [facility] Comment on above: Result Comment: Canc elled via OM: Order cancelled - Patient discharged Performed By: #### L 500.2500, L100.0100 ####[facility] [address] [place], [address] HCT Normal 37-47 [facility] Comment on above: Result Comment: Canc elled via OM: Order cancelled - Patient discharged Performed By: #### L 500.2500, L100.0100 ####[facility] [address] [place], [address] HGB Normal 12.0-15.0 [facility] Comment on above: Result Comment: Canc elled via OM: Order cancelled - Patient discharged Performed By: #### L 500.2500, L100.0100 ####[facility] [address] [place], [address] MCH Normal 27.0-32.0 [facility] Comment on above: Result Comment: Canc elled via OM: Order cancelled - Patient discharged Performed By: #### L 500.2500, L100.0100 ####[facility] [address] [place], [address] MCHC Normal 32-36 [facility] Comment on above: Result Comment: Canc elled via OM: Order cancelled - Patient discharged Performed By: #### L 500.2500, L100.0100 ####[facility] [address] [place], [address] MCV Normal 81-99 [facility] Comment on above: Result Comment: Canc elled via OM: Order cancelled - Patient discharged Performed By: #### L 500.2500, L100.0100 ####[facility] [address] [place], [address] NEUT% Normal 47-70 [facility] Comment on above: Result Comment: Canc elled via OM: Order cancelled - Patient discharged Performed By: #### L 500.2500, L100.0100 ####[facility] [address] [place], [address] PLT Normal 150-450 [facility] Comment on above: Result Comment: Canc elled via OM: Order cancelled - Patient discharged Performed By: #### L 500.2500, L100.0100 ####[facility] [address] [place], [address] RBC Normal 4.2-5.4 [facility] Comment on above: Result Comment: Canc elled via OM: Order cancelled - Patient discharged Performed By: #### L 500.2500, L100.0100 ####[facility] [address] [place], [address] RDW CV Normal 11.6-14.6 [facility] Comment on above: Result Comment: Canc elled via OM: Order cancelled - Patient discharged Performed By: #### L 500.2500, L100.0100 ####[facility] [address] [place], [address] RDW SD Normal 35.1-43.9 [facility] Comment on above: Result Comment: Canc elled via OM: Order cancelled - Patient discharged Performed By: #### L 500.2500, L100.0100 ####[facility] [address] [place], [address] WBC Normal 4.4-11.0 [facility] Comment on above: Result Comment: Canc elled via OM: Order cancelled - Patient discharged Performed By: #### L 500.2500, L100.0100 ####[facility] [address] [place], [address] Absolute lymphocyte countOrd ered By: Jg Bryan on 01-26-2025 Lymphocytes Auto (Unsp spec) [#/Vol] 2.24 10*3/uL 0.83-4.51 [facility] Anion gap in Serum or Plasma Ordered By: Jg Bryan on 01-26-2025 Anion gap [Moles/Vol] 10 mmol/L 5-15 [facility] Automated lymphocyte count a s percentage of total leukocytesOrdered By: Jg Bryan on 01-26-2025 Lymphocytes/100 WBC Auto (Unsp spec) 25.1 % 19-41 [facility] BUN/creatinine ratioOrdered By: Jg Bryan on 01-26-2025 Urea nitrogen/Creatinine [Mass ratio] 30.2 mg/mg High 10-20 [facility] Basic Metabolic Profile (BMP )on 01-26-2025 BUN Normal 4-19 [facility] Comment on above: Result Comment: Canc elled via OM: Order cancelled - Patient discharged Performed By: #### L 500.2500, L100.0100 ####[facility] [address] [place], [address] BUN/CRE Normal 10-20 [facility] Comment on above: Result Comment: Canc elled via OM: Order cancelled - Patient discharged Performed By: #### L 500.2500, L100.0100 ####[facility] [address] [place], [address] Calcium Normal 7.6-11.0 [facility] Comment on above: Result Comment: Canc elled via OM: Order cancelled - Patient discharged Performed By: #### L 500.2500, L100.0100 ####[facility] [address] [place], [address] CL Normal 98-108 [facility] Comment on above: Result Comment: Canc elled via OM: Order cancelled - Patient discharged Performed By: #### L 500.2500, L100.0100 ####[facility] [address] [place], [address] CO2 Normal 21.0-32.0 [facility] Comment on above: Result Comment: Canc elled via OM: Order cancelled - Patient discharged Performed By: #### L 500.2500, L100.0100 ####[facility] [address] [place], [address] CREAT,SERUM Normal 0.70-1.20 [facility] Comment on above: Result Comment: Canc elled via OM: Order cancelled - Patient discharged Performed By: #### L 500.2500, L100.0100 ####[facility] [address] [place], [address] eGFR Normal >60 [facility] Comment on above: Result Comment: Canc elled via OM: Order cancelled - Patient discharged Performed By: #### L 500.2500, L100.0100 ####[facility] [address] [place], [address] GAP Normal 5-15 [facility] Comment on above: Result Comment: Canc elled via OM: Order cancelled - Patient discharged Performed By: #### L 500.2500, L100.0100 ####[facility] [address] [place], [address] GLU Normal 70-99 [facility] Comment on above: Result Comment: Canc elled via OM: Order cancelled - Patient discharged Performed By: #### L 500.2500, L100.0100 ####[facility] [address] [place], [address] Potassium Normal 3.3-5.1 [facility] Comment on above: Result Comment: Canc elled via OM: Order cancelled - Patient discharged Performed By: #### L 500.2500, L100.0100 ####[facility] [address] [place], [address] Basic Metabolic Profile (BMP) Normal 133-145 [facility] Comment on above: Result Comment: Canc elled via OM: Order cancelled - Patient discharged Performed By: #### L 500.2500, L100.0100 ####[facility] [address] [place], [address] BUN/CRE 30.2 RATIO High 10-20 [facility] Comment on above: Performed By: #### L 501.5200, L503.7505, L500.2500, L100.0100 ####[facility] [address] [place], [address] Calcium [Mass/Vol] 10.2 mg/dL Normal 7.6-11.0 [facility] Comment on above: Performed By: #### L 501.5200, L503.7505, L500.2500, L100.0100 ####[facility] [address] [place], [address] Chloride [Moles/Vol] 104 mmol/L Normal 98-108 [facility] Comment on above: Performed By: #### L 501.5200, L503.7505, L500.2500, L100.0100 ####[facility] [address] [place], [address] CO2 [Moles/Vol] 27.1 mmol/L Normal 21.0-32.0 [facility] Comment on above: Performed By: #### L 501.5200, L503.7505, L500.2500, L100.0100 ####[facility] [address] [place], [address] Creatinine [Mass/Vol] 1.16 mg/dL Normal 0.70-1.20 [facility] Comment on above: Performed By: #### L 501.5200, L503.7505, L500.2500, L100.0100 ####[facility] [address] [place], [address] ECRCL 38.24 ml/min Low 50-250 [facility] Comment on above: Performed By: #### L 501.5200, L503.7505, L500.2500, L100.0100 ####[facility] [address] [place], [address] GAP 10 Normal 5-15 [facility] Comment on above: Performed By: #### L 501.5200, L503.7505, L500.2500, L100.0100 ####[facility] [address] [place], [address] GFR/1.73 sq M.predicted among non-blacks MDRD (S/P/Bld) [Vol rate/Area] 47 mL/min/{1.73_m2} Low >60 [facility] Comment on above: Result Comment: mL/m in/1.73m2 CKD-EPI Creatinine Equation (2020) Performed By: #### L 501.5200, L503.7505, L500.2500, L100.0100 ####[facility] [address] [place], [address] Glucose [Mass/Vol] 211 mg/dL High 70-99 [facility] Comment on above: Performed By: #### L 501.5200, L503.7505, L500.2500, L100.0100 ####[facility] [address] [place], [address] Potassium [Moles/Vol] 4.1 mmol/L Normal 3.3-5.1 [facility] Comment on above: Performed By: #### L 501.5200, L503.7505, L500.2500, L100.0100 ####[facility] [address] [place], [address] Sodium [Moles/Vol] 141 mmol/L Normal 133-145 [facility] Comment on above: Performed By: #### L 501.5200, L503.7505, L500.2500, L100.0100 ####[facility] [address] [place], [address] Urea nitrogen [Mass/Vol] 35 mg/dL High 4-19 [facility] Comment on above: Performed By: #### L 501.5200, L503.7505, L500.2500, L100.0100 ####[facility] [address] [place], [address] Basophil percentageOrdered B y: Jg Bryan on 01-26-2025 Basophils/100 WBC (Bld) 0.1 % 0-1 [facility] CBC W/Diff, Automatedon 12-30 Absolute Neut Normal 2.0-7.7 [facility] Comment on above: Result Comment: Canc elled via OM: Order cancelled - Patient discharged Performed By: #### L 500.2500, L100.0100 ####[facility] [address] [place], [address] HCT Normal 37-47 [facility] Comment on above: Result Comment: Canc elled via OM: Order cancelled - Patient discharged Performed By: #### L 500.2500, L100.0100 ####[facility] [address] [place], [address] HGB Normal 12.0-15.0 [facility] Comment on above: Result Comment: Canc elled via OM: Order cancelled - Patient discharged Performed By: #### L 500.2500, L100.0100 ####[facility] [address] [place], [address] MCH Normal 27.0-32.0 [facility] Comment on above: Result Comment: Canc elled via OM: Order cancelled - Patient discharged Performed By: #### L 500.2500, L100.0100 ####[facility] [address] [place], [address] MCHC Normal 32-36 [facility] Comment on above: Result Comment: Canc elled via OM: Order cancelled - Patient discharged Performed By: #### L 500.2500, L100.0100 ####[facility] [address] [place], [address] MCV Normal 81-99 [facility] Comment on above: Result Comment: Canc elled via OM: Order cancelled - Patient discharged Performed By: #### L 500.2500, L100.0100 ####[facility] [address] [place], [address] NEUT% Normal 47-70 [facility] Comment on above: Result Comment: Canc elled via OM: Order cancelled - Patient discharged Performed By: #### L 500.2500, L100.0100 ####[facility] [address] [place], [address] PLT Normal 150-450 [facility] Comment on above: Result Comment: Canc elled via OM: Order cancelled - Patient discharged Performed By: #### L 500.2500, L100.0100 ####[facility] [address] [place], [address] RBC Normal 4.2-5.4 [facility] Comment on above: Result Comment: Canc elled via OM: Order cancelled - Patient discharged Performed By: #### L 500.2500, L100.0100 ####[facility] [address] [place], [address] RDW CV Normal 11.6-14.6 [facility] Comment on above: Result Comment: Canc elled via OM: Order cancelled - Patient discharged Performed By: #### L 500.2500, L100.0100 ####[facility] [address] [place], [address] RDW SD Normal 35.1-43.9 [facility] Comment on above: Result Comment: Canc elled via OM: Order cancelled - Patient discharged Performed By: #### L 500.2500, L100.0100 ####[facility] [address] [place], [address] WBC Normal 4.4-11.0 [facility] Comment on above: Result Comment: Canc elled via OM: Order cancelled - Patient discharged Performed By: #### L 500.2500, L100.0100 ####[facility] [address] [place], [address] Absolute Lymph 2.24 X10 3/uL Normal 0.83-4.51 [facility] Comment on above: Performed By: #### L 501.5200, L503.7505, L500.2500, L100.0100 ####[facility] [address] [place], [address] Absolute Neut 5.8 X10 3/uL Normal 2.0-7.7 [facility] Comment on above: Performed By: #### L 501.5200, L503.7505, L500.2500, L100.0100 ####[facility] [address] [place], [address] Basophils/100 WBC (Bld) 0.1 % Normal 0-1 [facility] Comment on above: Performed By: #### L 501.5200, L503.7505, L500.2500, L100.0100 ####[facility] [address] [place], [address] Eosinophils/100 WBC (Bld) 2.8 % Normal 0-5 [facility] Comment on above: Performed By: #### L 501.5200, L503.7505, L500.2500, L100.0100 ####[facility] [address] [place], [address] Erythrocyte distribution width (RBC) [Ratio] 15.9 % High 11.6-14.6 [facility] Comment on above: Performed By: #### L 501.5200, L503.7505, L500.2500, L100.0100 ####[facility] [address] [place], [address] Hematocrit (Bld) [Volume fraction] 37.9 % Normal 37-47 [facility] Comment on above: Performed By: #### L 501.5200, L503.7505, L500.2500, L100.0100 ####[facility] [address] [place], [address] Hemoglobin (Bld) [Mass/Vol] 11.8 g/dL Low 12.0-15.0 [facility] Comment on above: Performed By: #### L 501.5200, L503.7505, L500.2500, L100.0100 ####[facility] [address] [place], [address] IG% 0.300 Normal 0.0-0.9 [facility] Comment on above: Result Comment: IG% - Immature Granulocytes (promyelocytes, myelocytes andmetamyelocytes) > 1% indicates that a LEFT SHIFT is Present. Performed By: #### L 501.5200, L503.7505, L500.2500, L100.0100 ####[facility] [address] [place], [address] Lymphocytes/100 WBC (Bld) 25.1 % Normal 19-41 [facility] Comment on above: Performed By: #### L 501.5200, L503.7505, L500.2500, L100.0100 ####[facility] [address] [place], [address] MCH (RBC) [Entitic mass] 27.3 pg Normal 27.0-32.0 [facility] Comment on above: Performed By: #### L 501.5200, L503.7505, L500.2500, L100.0100 ####[facility] [address] [place], [address] MCHC (RBC) [Mass/Vol] 31.1 g/dL Low 32-36 [facility] Comment on above: Performed By: #### L 501.5200, L503.7505, L500.2500, L100.0100 ####[facility] [address] [place], [address] MCV (RBC) [Entitic vol] 87.5 fL Normal 81-99 [facility] Comment on above: Performed By: #### L 501.5200, L503.7505, L500.2500, L100.0100 ####[facility] [address] [place], [address] Monocytes/100 WBC (Bld) 6.7 % Normal 0-10 [facility] Comment on above: Performed By: #### L 501.5200, L503.7505, L500.2500, L100.0100 ####[facility] [address] [place], [address] Neutrophils/100 WBC (Bld) 65.0 % Normal 47-70 [facility] Comment on above: Performed By: #### L 501.5200, L503.7505, L500.2500, L100.0100 ####[facility] [address] [place], [address] Nucleated RBC (Bld) [#/Vol] 0 10*3/uL Normal 0-5 [facility] Comment on above: Performed By: #### L 501.5200, L503.7505, L500.2500, L100.0100 ####[facility] [address] [place], [address] Platelet mean volume (Bld) [Entitic vol] 10.8 fL Normal 6.2-12.0 [facility] Comment on above: Performed By: #### L 501.5200, L503.7505, L500.2500, L100.0100 ####[facility] [address] [place], [address] Platelets (Bld) [#/Vol] 247 10*3/uL Normal 150-450 [facility] Comment on above: Performed By: #### L 501.5200, L503.7505, L500.2500, L100.0100 ####[facility] [address] [place], [address] RBC (Bld) [#/Vol] 4.33 10*6/uL Normal 4.2-5.4 [facility] Comment on above: Performed By: #### L 501.5200, L503.7505, L500.2500, L100.0100 ####[facility] [address] [place], [address] RDW SD 51.0 fl High 35.1-43.9 [facility] Comment on above: Performed By: #### L 501.5200, L503.7505, L500.2500, L100.0100 ####[facility] [address] [place], [address] WBC (Bld) [#/Vol] 8.9 10*3/uL Normal 4.4-11.0 [facility] Comment on above: Performed By: #### L 501.5200, L503.7505, L500.2500, L100.0100 ####[facility] [address] [place], [address] Carbon dioxide, total [Moles /volume] in Central venous bloodOrdered By: Jg Bryan on 01-26-2025 CO2 [Moles/Vol] 27.1 mmol/L 21.0-32.0 [facility] Chest PA and Lateralon 01-26 Chest PA and Lateral Normal [facility] Chloride assayOrdered By: Matilde Bryan on 01-26-2025 Chloride [Moles/Vol] 104 mmol/L 98-108 [facility] Emergency Department Summary on 01-26-2025 Emergency Department Summary Normal [facility] Eosinophil percentageOrdered By: Jg Bryan on 01-26-2025 Eosinophils/100 WBC (Bld) 2.8 % 0-5 [facility] Erythrocyte distribution wid th ratioOrdered By: Jg Bryan on 01-26-2025 Erythrocyte distribution width (RBC) [Ratio] 15.9 % High 11.6-14.6 [facility] Erythrocyte distribution wid th standard deviationOrdered By: Jg Bryan on 01-26-2025 Erythrocyte distribution width (RBC) [Ratio] 51.0 fl High 35.1-43.9 [facility] Glomerular filtration rate ( GFR) estimation/1.73 sq m using serum, plasma, or whole bOrdered By: Jg Bryan on 01-26-2025 GFR/1.73 sq M.predicted among non-blacks MDRD (S/P/Bld) [Vol rate/Area] 47 mL/min/{1.73_m2} Low >60 [facility] Hematocrit Auto (Bld) [Volum e fraction]Ordered By: Jg Bryan on 01-26-2025 Hematocrit (Bld) [Volume fraction] 37.9 % 37-47 [facility] Hemoglobin measurementOrdere d By: Jg Bryan on 01-26-2025 Hemoglobin (Bld) [Mass/Vol] 11.8 g/dL Low 12.0-15.0 [facility] Immature granulocytes/100 WB C Auto (Bld)Ordered By: Jg Bryan on 01-26-2025 Immature granulocytes/100 WBC (Bld) 0.300 % 0.0-0.9 [facility] L503.7505on 01-26-2025 Natriuretic peptide B (Bld) [Mass/Vol] 3334 pg/mL High <=1800 [facility] Comment on above: Result Comment: Hear t Failure Unlikely: < 300 pg/mLHeart Failure Likely< 50 Years: > 450 pg/mL50-75 Years: > 900 pg/mL>75 Years: > 1800 pg/mL Performed By: #### L 501.5200, L503.7505, L500.2500, L100.0100 ####[facility] [address] [place], [address] MCV (mean corpuscular volume ) determinationOrdered By: Jg Bryan on 01-26-2025 MCV (RBC) [Entitic vol] 87.5 fL 81-99 [facility] Magnesiumon 01-26-2025 Magnesium [Mass/Vol] 2.7 mg/dL High 1.5-2.2 [facility] Comment on above: Performed By: #### L 501.5200, L503.7505, L500.2500, L100.0100 ####[facility] [address] [place], [place], [address] Magnesium measurement (mass/ volume)Ordered By: Jg Bryan on 01-26-2025 Magnesium (Unsp spec) [Mass/Vol] 2.7 mg/dL High 1.5-2.2 [facility] Mean corpuscular hemoglobin (MCH) determinationOrdered By: Jg Bryan on 01-26-2025 MCH (RBC) [Entitic mass] 27.3 pg 27.0-32.0 [facility] Monocyte percentageOrdered B y: Jg Bryan on 01-26-2025 Monocytes/100 WBC (Bld) 6.7 % 0-10 [facility] Natriuretic peptide.B prohor hayley N-Terminal [Mass/volume] in Serum or PlasmaOrdered By: Jg Bryan on 01-26-2025 Natriuretic peptide.B prohormone N-Terminal [Mass/Vol] 3334 pg/mL High <1800 [facility] Neutrophil percentageOrdered By: Jg Bryan on 01-26-2025 Neutrophils/100 WBC (Bld) 65.0 % 47-70 [facility] Platelet countOrdered By: Matilde Bryan on 01-26-2025 Platelets (Bld) [#/Vol] 247 10*3/uL 150-450 [facility] Potassium measurement (mass/ volume)Ordered By: Jg Bryan on 01-26-2025 Potassium (Unsp spec) [Mass/Vol] 4.1 mmol/L 3.3-5.1 [facility] RBC Auto (Bld) [#/Vol]Ordere d By: Jg Bryan on 01-26-2025 RBC (Bld) [#/Vol] 4.33 10*6/uL 4.2-5.4 [facility] Serum creatinine measurement (mass/volume)Ordered By: Jg Bryan on 01-26-2025 Creatinine [Mass/Vol] 1.16 mg/dL 0.70-1.20 [facility] Serum glucose measurement (m ass/volume)Ordered By: Jg Bryan on 01-26-2025 Glucose [Mass/Vol] 211 mg/dL High 70-99 [facility] Serum or plasma calcium melanie urement (mass/volume)Ordered By: Jg Bryan on 01-26-2025 Calcium [Mass/Vol] 10.2 mg/dL 7.6-11.0 [facility] Serum or plasma urea nitroge n measurement (mass/volume)Ordered By: Jg Bryan on 01-26-2025 Urea nitrogen [Mass/Vol] 35 mg/dL High 4-19 [facility] Sodium levelOrdered By: Cosme Bryan on 01-26-2025 Sodium [Moles/Vol] 141 mmol/L 133-145 [facility] White blood cell (WBC) count Ordered By: Jg Bryan on 01-26-2025 WBC (Bld) [#/Vol] 8.9 10*3/uL 4.4-11.0 [facility] Basic Metabolic Profile (BMP )on 01-25-2025 BUN Normal 4-19 [facility] Comment on above: Result Comment: Canc elled via OM: Order cancelled - Patient discharged Performed By: #### L 100.0100, L500.2500 ####[facility] [address] [place], [address] BUN/CRE Normal 10-20 [facility] Comment on above: Result Comment: Canc elled via OM: Order cancelled - Patient discharged Performed By: #### L 100.0100, L500.2500 ####[facility] [address] [place], [address] Calcium Normal 7.6-11.0 [facility] Comment on above: Result Comment: Canc elled via OM: Order cancelled - Patient discharged Performed By: #### L 100.0100, L500.2500 ####[facility] [address] [place], [address] CL Normal 98-108 [facility] Comment on above: Result Comment: Canc elled via OM: Order cancelled - Patient discharged Performed By: #### L 100.0100, L500.2500 ####[facility] [address] [place], [address] CO2 Normal 21.0-32.0 [facility] Comment on above: Result Comment: Canc elled via OM: Order cancelled - Patient discharged Performed By: #### L 100.0100, L500.2500 ####[facility] [address] [place], [address] CREAT,SERUM Normal 0.70-1.20 [facility] Comment on above: Result Comment: Canc elled via OM: Order cancelled - Patient discharged Performed By: #### L 100.0100, L500.2500 ####[facility] [address] [place], [address] eGFR Normal >60 [facility] Comment on above: Result Comment: Canc elled via OM: Order cancelled - Patient discharged Performed By: #### L 100.0100, L500.2500 ####[facility] [address] [place], [address] GAP Normal 5-15 [facility] Comment on above: Result Comment: Canc elled via OM: Order cancelled - Patient discharged Performed By: #### L 100.0100, L500.2500 ####[facility] [address] [place], [address] GLU Normal 70-99 [facility] Comment on above: Result Comment: Canc elled via OM: Order cancelled - Patient discharged Performed By: #### L 100.0100, L500.2500 ####[facility] [address] [place], [address] Potassium Normal 3.3-5.1 [facility] Comment on above: Result Comment: Canc elled via OM: Order cancelled - Patient discharged Performed By: #### L 100.0100, L500.2500 ####[facility] [address] [place], [address] Basic Metabolic Profile (BMP) Normal 133-145 [facility] Comment on above: Result Comment: Canc elled via OM: Order cancelled - Patient discharged Performed By: #### L 100.0100, L500.2500 ####[facility] [address] [place], [address] CBC W/Diff, Automatedon 05-2 Absolute Neut Normal 2.0-7.7 [facility] Comment on above: Result Comment: Canc elled via OM: Order cancelled - Patient discharged Performed By: #### L 100.0100, L500.2500 ####[facility] [address] [place], [address] HCT Normal 37-47 [facility] Comment on above: Result Comment: Canc elled via OM: Order cancelled - Patient discharged Performed By: #### L 100.0100, L500.2500 ####[facility] [address] [place], [address] HGB Normal 12.0-15.0 [facility] Comment on above: Result Comment: Canc elled via OM: Order cancelled - Patient discharged Performed By: #### L 100.0100, L500.2500 ####[facility] [address] [place], [address] MCH Normal 27.0-32.0 [facility] Comment on above: Result Comment: Canc elled via OM: Order cancelled - Patient discharged Performed By: #### L 100.0100, L500.2500 ####[facility] [address] [place], [address] MCHC Normal 32-36 [facility] Comment on above: Result Comment: Canc elled via OM: Order cancelled - Patient discharged Performed By: #### L 100.0100, L500.2500 ####[facility] [address] [place], [address] MCV Normal 81-99 [facility] Comment on above: Result Comment: Canc elled via OM: Order cancelled - Patient discharged Performed By: #### L 100.0100, L500.2500 ####[facility] [address] [place], [address] NEUT% Normal 47-70 [facility] Comment on above: Result Comment: Canc elled via OM: Order cancelled - Patient discharged Performed By: #### L 100.0100, L500.2500 ####[facility] [address] [place], [address] PLT Normal 150-450 [facility] Comment on above: Result Comment: Canc elled via OM: Order cancelled - Patient discharged Performed By: #### L 100.0100, L500.2500 ####[facility] [address] [place], [address] RBC Normal 4.2-5.4 [facility] Comment on above: Result Comment: Canc elled via OM: Order cancelled - Patient discharged Performed By: #### L 100.0100, L500.2500 ####[facility] [address] [place], [address] RDW CV Normal 11.6-14.6 [facility] Comment on above: Result Comment: Canc elled via OM: Order cancelled - Patient discharged Performed By: #### L 100.0100, L500.2500 ####[facility] [address] [place], [address] RDW SD Normal 35.1-43.9 [facility] Comment on above: Result Comment: Canc elled via OM: Order cancelled - Patient discharged Performed By: #### L 100.0100, L500.2500 ####[facility] [address] [place], [address] WBC Normal 4.4-11.0 [facility] Comment on above: Result Comment: Canc elled via OM: Order cancelled - Patient discharged Performed By: #### L 100.0100, L500.2500 ####[facility] [address] [place], [address] Culture, Blood (WB)on 2024 CUB Blood cultures x2, from two different sites No growth in 5 days. Normal [facility] Comment on above: Performed By: #### M 200.1000 ####[facility] [address] [place], [address] Performed By: #### M 200.1000, L503.6005 ####[facility] [address] [place], [address] Performed By: #### L 300.4310, L100.0100, L300.3900, L501.4021, L503.6005, L500.4050, M200.1000 ####[facility] [address] [place], [address] Absolute lymphocyte countOrd ered By: Melba Hartmann on 01-24-2025 Lymphocytes Auto (Unsp spec) [#/Vol] 2.19 10*3/uL 0.83-4.51 [facility] Anion gap in Serum or Plasma Ordered By: Melba Hartmann on 01-24-2025 Anion gap [Moles/Vol] 12 mmol/L 5-15 [facility] Automated lymphocyte count a s percentage of total leukocytesOrdered By: Melba Hartmann on 01-24-2025 Lymphocytes/100 WBC Auto (Unsp spec) 19.3 % 19-41 [facility] BUN/creatinine ratioOrdered By: Melba Hartmann on 01-24-2025 Urea nitrogen/Creatinine [Mass ratio] 35.2 mg/mg High 10-20 [facility] Basic Metabolic Profile (BMP )on 01-24-2025 BUN/CRE 35.2 RATIO High [facility]20 [facility] Comment on above: Performed By: #### L 500.2500, L100.0100 ####[facility] [address] [place], [address] Calcium [Mass/Vol] 10.1 mg/dL Normal 7.6-11.0 [facility] Comment on above: Performed By: #### L 500.2500, L100.0100 ####[facility] [address] [place], [address] Chloride [Moles/Vol] 102 mmol/L Normal 98-108 [facility] Comment on above: Performed By: #### L 500.2500, L100.0100 ####[facility] [address] [place], [address] CO2 [Moles/Vol] 23.7 mmol/L Normal 21.0-32.0 [facility] Comment on above: Performed By: #### L 500.2500, L100.0100 ####[facility] [address] [place], [address] Creatinine [Mass/Vol] 1.31 mg/dL High 0.70-1.20 [facility] Comment on above: Performed By: #### L 500.2500, L100.0100 ####[facility] [address] [place], [address] ECRCL 33.41 ml/min Low 50-250 [facility] Comment on above: Performed By: #### L 500.2500, L100.0100 ####[facility] [address] [place], [address] GAP 12 Normal 5-15 [facility] Comment on above: Performed By: #### L 500.2500, L100.0100 ####[facility] [address] [place], [address] GFR/1.73 sq M.predicted among non-blacks MDRD (S/P/Bld) [Vol rate/Area] 41 mL/min/{1.73_m2} Low >60 [facility] Comment on above: Result Comment: mL/m in/1.73m2 CKD-EPI Creatinine Equation (2020) Performed By: #### L 500.2500, L100.0100 ####[facility] [address] [place], [address] Glucose [Mass/Vol] 133 mg/dL High 70-99 [facility] Comment on above: Performed By: #### L 500.2500, L100.0100 ####[facility] [address] [place], [address] Potassium [Moles/Vol] 3.5 mmol/L Normal 3.3-5.1 [facility] Comment on above: Performed By: #### L 500.2500, L100.0100 ####[facility] [address] [place], [address] Sodium [Moles/Vol] 138 mmol/L Normal 133-145 [facility] Comment on above: Performed By: #### L 500.2500, L100.0100 ####[facility] [address] [place], [address] Urea nitrogen [Mass/Vol] 46 mg/dL High 4-19 [facility] Comment on above: Performed By: #### L 500.2500, L100.0100 ####[facility] [address] [place], [address] Basophil percentageOrdered B y: Melba Hartmann on 01-24-2025 Basophils/100 WBC (Bld) 0.2 % 0-1 [facility] Bedside Glucoseon 01-24-2025 FINGERSTICK GLU 167 mg/dL High 74-106 [facility] Comment on above: Result Comment: KATARINA GEMENT OF PATIENT CARE PER NURSING PROTOCOL Performed By: #### L 501.080 ####[facility] [address] [place], [address] FINGERSTICK GLU 143 mg/dL High 74-106 [facility] Comment on above: Result Comment: KATARINA GEMENT OF PATIENT CARE PER NURSING PROTOCOL Performed By: #### L 501.080 ####[facility] [address] [place], [address] CBC W/Diff, Automatedon - Absolute Lymph 2.19 X10 3/uL Normal 0.83-4.51 [facility] Comment on above: Performed By: #### L 500.2500, L100.0100 ####[facility] [address] [place], [address] Absolute Neut 8.2 X10 3/uL High 2.0-7.7 [facility] Comment on above: Performed By: #### L 500.2500, L100.0100 ####[facility] [address] [place], [address] Basophils/100 WBC (Bld) 0.2 % Normal 0-1 [facility] Comment on above: Performed By: #### L 500.2500, L100.0100 ####[facility] [address] [place], [address] Eosinophils/100 WBC (Bld) 0.2 % Normal 0-5 [facility] Comment on above: Performed By: #### L 500.2500, L100.0100 ####[facility] [address] [place], [address] Erythrocyte distribution width (RBC) [Ratio] 15.8 % High 11.6-14.6 [facility] Comment on above: Performed By: #### L 500.2500, L100.0100 ####[facility] [address] [place], [address] Hematocrit (Bld) [Volume fraction] 40.7 % Normal 37-47 [facility] Comment on above: Performed By: #### L 500.2500, L100.0100 ####[facility] [address] [place], [address] Hemoglobin (Bld) [Mass/Vol] 12.7 g/dL Normal 12.0-15.0 [facility] Comment on above: Performed By: #### L 500.2500, L100.0100 ####[facility] [address] [place], [address] IG% 0.400 Normal 0.0-0.9 [facility] Comment on above: Result Comment: IG% - Immature Granulocytes (promyelocytes, myelocytes andmetamyelocytes) > 1% indicates that a LEFT SHIFT is Present. Performed By: #### L 500.2500, L100.0100 ####[facility] [address] [place], [address] Lymphocytes/100 WBC (Bld) 19.3 % Normal 19-41 [facility] Comment on above: Performed By: #### L 500.2500, L100.0100 ####[facility] [address] [place], [address] MCH (RBC) [Entitic mass] 27.4 pg Normal 27.0-32.0 [facility] Comment on above: Performed By: #### L 500.2500, L100.0100 ####[facility] [address] [place], [address] MCHC (RBC) [Mass/Vol] 31.2 g/dL Low 32-36 [facility] Comment on above: Performed By: #### L 500.2500, L100.0100 ####[facility] [address] [place], [address] MCV (RBC) [Entitic vol] 87.7 fL Normal 81-99 [facility] Comment on above: Performed By: #### L 500.2500, L100.0100 ####[facility] [address] [place], [address] Monocytes/100 WBC (Bld) 7.4 % Normal 0-10 [facility] Comment on above: Performed By: #### L 500.2500, L100.0100 ####[facility] [address] [place], [address] Neutrophils/100 WBC (Bld) 72.5 % High 47-70 [facility] Comment on above: Performed By: #### L 500.2500, L100.0100 ####[facility] [address] [place], [address] Nucleated RBC (Bld) [#/Vol] 0 10*3/uL Normal 0-5 [facility] Comment on above: Performed By: #### L 500.2500, L100.0100 ####[facility] [address] [place], [address] Platelet mean volume (Bld) [Entitic vol] 10.9 fL Normal 6.2-12.0 [facility] Comment on above: Performed By: #### L 500.2500, L100.0100 ####[facility] [address] [place], [address] Platelets (Bld) [#/Vol] 297 10*3/uL Normal 150-450 [facility] Comment on above: Performed By: #### L 500.2500, L100.0100 ####[facility] [address] [place], [address] RBC (Bld) [#/Vol] 4.64 10*6/uL Normal 4.2-5.4 [facility] Comment on above: Performed By: #### L 500.2500, L100.0100 ####[facility] [address] [place], [address] RDW SD 50.9 fl High 35.1-43.9 [facility] Comment on above: Performed By: #### L 500.2500, L100.0100 ####[facility] [address] [place], [address] WBC (Bld) [#/Vol] 11.3 10*3/uL High 4.4-11.0 [facility] Comment on above: Performed By: #### L 500.2500, L100.0100 ####[facility] [address] [place], [address] Carbon dioxide, total [Moles /volume] in Central venous bloodOrdered By: Melba Hartmann on 01-24-2025 CO2 [Moles/Vol] 23.7 mmol/L 21.0-32.0 [facility] Chloride assayOrdered By: Ewelina Hartmann on 01-24-2025 Chloride [Moles/Vol] 102 mmol/L 98-108 [facility] Discharge Instructionon 05-2 Discharge Instruction Normal [facility] Electrocardiogram reportOrde red By: Marcelina Soto on 01-24-2025 EKG study [facility] Work Phone: [phone] Eosinophil percentageOrdered By: Melba Hartmann on 01-24-2025 Eosinophils/100 WBC (Bld) 0.2 % 0-5 [facility] Erythrocyte distribution wid th ratioOrdered By: Melba Hartmann on 01-24-2025 Erythrocyte distribution width (RBC) [Ratio] 15.8 % High 11.6-14.6 [facility] Erythrocyte distribution wid th standard deviationOrdered By: Melba Hartmann on 01-24-2025 Erythrocyte distribution width (RBC) [Ratio] 50.9 fl High 35.1-43.9 [facility] Glomerular filtration rate ( GFR) estimation/1.73 sq m using serum, plasma, or whole bOrdered By: Melba Hartmann on 01-24-2025 GFR/1.73 sq M.predicted among non-blacks MDRD (S/P/Bld) [Vol rate/Area] 41 mL/min/{1.73_m2} Low >60 [facility] Glucose measurement at bedsi deOrdered By: Melba Hartmann on 01-24-2025 Glucose [Mass/Vol] 167 mg/dL High 74-106 [facility] Hematocrit Auto (Bld) [Volum e fraction]Ordered By: Melba Hartmann 01-24-2025 Hematocrit (Bld) [Volume fraction] 40.7 % 37-47 [facility] Hemoglobin measurementOrdere d By: Melba Hartmann on 01-24-2025 Hemoglobin (Bld) [Mass/Vol] 12.7 g/dL 12.0-15.0 [facility] Immature granulocytes/100 WB C Auto (Bld)Ordered By: Melba Hartmann on 01-24-2025 Immature granulocytes/100 WBC (Bld) 0.400 % 0.0-0.9 [facility] MCV (mean corpuscular volume ) determinationOrdered By: Melba Hartmann on 01-24-2025 MCV (RBC) [Entitic vol] 87.7 fL 81-99 [facility] Mean corpuscular hemoglobin (MCH) determinationOrdered By: Melba Hartmann on 01-24-2025 MCH (RBC) [Entitic mass] 27.4 pg 27.0-32.0 [facility] Monocyte percentageOrdered B y: Melba Hartmann on 01-24-2025 Monocytes/100 WBC (Bld) 7.4 % 0-10 [facility] Neutrophil percentageOrdered By: Melba Hartmann on 01-24-2025 Neutrophils/100 WBC (Bld) 72.5 % High 47-70 [facility] Platelet countOrdered By: Na ewelina Hartmann on 01-24-2025 Platelets (Bld) [#/Vol] 297 10*3/uL 150-450 [facility] Potassium measurement (mass/ volume)Ordered By: Melba Hartmann on 01-24-2025 Potassium (Unsp spec) [Mass/Vol] 3.5 mmol/L 3.3-5.1 [facility] RBC Auto (Bld) [#/Vol]Ordere d By: Melba Hartmann on 01-24-2025 RBC (Bld) [#/Vol] 4.64 10*6/uL 4.2-5.4 [facility] Serum creatinine measurement (mass/volume)Ordered By: Melba Hartmann on 01-24-2025 Creatinine [Mass/Vol] 1.31 mg/dL High 0.70-1.20 [facility] Serum glucose measurement (m ass/volume)Ordered By: Melba Hartmann 01-24-2025 Glucose [Mass/Vol] 133 mg/dL High 70-99 [facility] Serum or plasma calcium melanie urement (mass/volume)Ordered By: Melba Hartmann 01-24-2025 Calcium [Mass/Vol] 10.1 mg/dL 7.6-11.0 [facility] Serum or plasma urea nitroge n measurement (mass/volume)Ordered By: Melba Hartmann on 01-24-2025 Urea nitrogen [Mass/Vol] 46 mg/dL High 4-19 [facility] Sodium levelOrdered By: Melba Hartmann on 01-24-2025 Sodium [Moles/Vol] 138 mmol/L 133-145 [facility] White blood cell (WBC) count Ordered By: Melba Hartmann on 01-24-2025 WBC (Bld) [#/Vol] 11.3 10*3/uL High 4.4-11.0 [facility] Basic Metabolic Profile (BMP )on 01-23-2025 BUN/CRE 33.0 RATIO High 10-20 [facility] Comment on above: Performed By: #### L 100.0100, L500.2500 ####[facility] [address] [place], [address] Calcium [Mass/Vol] 10.8 mg/dL Normal 7.6-11.0 [facility] Comment on above: Performed By: #### L 100.0100, L500.2500 ####[facility] [address] [place], [address] Chloride [Moles/Vol] 98 mmol/L Normal 98-108 [facility] Comment on above: Performed By: #### L 100.0100, L500.2500 ####[facility] [address] [place], [address] CO2 [Moles/Vol] 25.4 mmol/L Normal 21.0-32.0 [facility] Comment on above: Performed By: #### L 100.0100, L500.2500 ####[facility] [address] [place], [address] Creatinine [Mass/Vol] 1.32 mg/dL High 0.70-1.20 [facility] Comment on above: Performed By: #### L 100.0100, L500.2500 ####[facility] [address] [place], [address] ECRCL 32.84 ml/min Low 50-250 [facility] Comment on above: Performed By: #### L 100.0100, L500.2500 ####[facility] [address] [place], [address] GAP 12 Normal 5-15 [facility] Comment on above: Performed By: #### L 100.0100, L500.2500 ####[facility] [address] [place], [address] GFR/1.73 sq M.predicted among non-blacks MDRD (S/P/Bld) [Vol rate/Area] 41 mL/min/{1.73_m2} Low >60 [facility] Comment on above: Result Comment: mL/m in/1.73m2 CKD-EPI Creatinine Equation (2020) Performed By: #### L 100.0100, L500.2500 ####[facility] [address] [place], [address] Glucose [Mass/Vol] 200 mg/dL High 70-99 [facility] Comment on above: Performed By: #### L 100.0100, L500.2500 ####[facility] [address] [place], [address] Potassium [Moles/Vol] 5.2 mmol/L High 3.3-5.1 [facility] Comment on above: Result Comment: Hemo lysis present, Results??could be affected.?? Performed By: #### L 100.0100, L500.2500 ####[facility] [address] [place], [address] Sodium [Moles/Vol] 135 mmol/L Normal 133-145 [facility] Comment on above: Performed By: #### L 100.0100, L500.2500 ####[facility] [address] [place], [address] Urea nitrogen [Mass/Vol] 44 mg/dL High 4-19 [facility] Comment on above: Performed By: #### L 100.0100, L500.2500 ####[facility] [address] [place], [address] Bedside Glucoseon 01-23-2025 FINGERSTICK GLU 294 mg/dL High 74-106 [facility] Comment on above: Result Comment: KATARINA GEMENT OF PATIENT CARE PER NURSING PROTOCOL Performed By: #### L 501.080 ####[facility] [address] [place], [address] FINGERSTICK GLU 314 mg/dL High 74-106 [facility] Comment on above: Result Comment: KATARINA GEMENT OF PATIENT CARE PER NURSING PROTOCOL Performed By: #### L 501.080 ####[facility] [address] [place], [address] FINGERSTICK GLU 291 mg/dL High 74-106 [facility] Comment on above: Result Comment: KATARINA GEMENT OF PATIENT CARE PER NURSING PROTOCOL Performed By: #### L 501.080 ####[facility] [address] [place], [address] FINGERSTICK GLU 214 mg/dL High 74-106 [facility] Comment on above: Result Comment: KATARINA GEMENT OF PATIENT CARE PER NURSING PROTOCOL Performed By: #### L 501.080 ####[facility] [address] [place], [address] CBC W/Diff, Automatedon 05- Absolute Lymph 0.74 X10 3/uL Low 0.83-4.51 [facility] Comment on above: Performed By: #### L 100.0100, L500.2500 ####[facility] [address] [place], [address] Absolute Neut 10.9 X10 3/uL High 2.0-7.7 [facility] Comment on above: Performed By: #### L 100.0100, L500.2500 ####[facility] [address] [place], [address] Basophils/100 WBC (Bld) 0.1 % Normal 0-1 [facility] Comment on above: Performed By: #### L 100.0100, L500.2500 ####[facility] [address] [place], [address] Eosinophils/100 WBC (Bld) 0.0 % Normal 0-5 [facility] Comment on above: Performed By: #### L 100.0100, L500.2500 ####[facility] [address] [place], [address] Erythrocyte distribution width (RBC) [Ratio] 15.8 % High 11.6-14.6 [facility] Comment on above: Performed By: #### L 100.0100, L500.2500 ####[facility] [address] [place], [address] Hematocrit (Bld) [Volume fraction] 41.8 % Normal 37-47 [facility] Comment on above: Performed By: #### L 100.0100, L500.2500 ####[facility] [address] [place], [address] Hemoglobin (Bld) [Mass/Vol] 13.1 g/dL Normal 12.0-15.0 [facility] Comment on above: Performed By: #### L 100.0100, L500.2500 ####[facility] [address] [place], [address] IG% 0.200 Normal 0.0-0.9 [facility] Comment on above: Result Comment: IG% - Immature Granulocytes (promyelocytes, myelocytes andmetamyelocytes) > 1% indicates that a LEFT SHIFT is Present. Performed By: #### L 100.0100, L500.2500 ####[facility] [address] [place], [address] Lymphocytes/100 WBC (Bld) 6.2 % Low 19-41 [facility] Comment on above: Performed By: #### L 100.0100, L500.2500 ####[facility] [address] [place], [address] MCH (RBC) [Entitic mass] 27.3 pg Normal 27.0-32.0 [facility] Comment on above: Performed By: #### L 100.0100, L500.2500 ####[facility] [address] [place], [address] MCHC (RBC) [Mass/Vol] 31.3 g/dL Low 32-36 [facility] Comment on above: Performed By: #### L 100.0100, L500.2500 ####[facility] [address] [place], [address] MCV (RBC) [Entitic vol] 87.1 fL Normal 81-99 [facility] Comment on above: Performed By: #### L 100.0100, L500.2500 ####[facility] [address] [place], [address] Monocytes/100 WBC (Bld) 2.7 % Normal 0-10 [facility] Comment on above: Performed By: #### L 100.0100, L500.2500 ####[facility] [address] [place], [address] Neutrophils/100 WBC (Bld) 90.8 % High 47-70 [facility] Comment on above: Performed By: #### L 100.0100, L500.2500 ####[facility] [address] [place], [address] Nucleated RBC (Bld) [#/Vol] 0 10*3/uL Normal 0-5 [facility] Comment on above: Performed By: #### L 100.0100, L500.2500 ####[facility] [address] [place], [address] Platelet mean volume (Bld) [Entitic vol] 11.6 fL Normal 6.2-12.0 [facility] Comment on above: Performed By: #### L 100.0100, L500.2500 ####[facility] [address] [place], [address] Platelets (Bld) [#/Vol] 322 10*3/uL Normal 150-450 [facility] Comment on above: Performed By: #### L 100.0100, L500.2500 ####[facility] [address] [place], [address] RBC (Bld) [#/Vol] 4.80 10*6/uL Normal 4.2-5.4 [facility] Comment on above: Performed By: #### L 100.0100, L500.2500 ####[facility] [address] [place], [address] RDW SD 50.2 fl High 35.1-43.9 [facility] Comment on above: Performed By: #### L 100.0100, L500.2500 ####[facility] [address] [place], [address] WBC (Bld) [#/Vol] 12.0 10*3/uL High 4.4-11.0 [facility] Comment on above: Performed By: #### L 100.0100, L500.2500 ####[facility] [address] [place], [address] Basic Metabolic Profile (BMP )on 01-22-2025 BUN/CRE 29.2 RATIO High 10-20 [facility] Comment on above: Performed By: #### L 500.2500, L100.0100 ####[facility] [address] [place], [address] Calcium [Mass/Vol] 10.2 mg/dL Normal 7.6-11.0 [facility] Comment on above: Performed By: #### L 500.2500, L100.0100 ####[facility] [address] [place], [address] Chloride [Moles/Vol] 99 mmol/L Normal 98-108 [facility] Comment on above: Performed By: #### L 500.2500, L100.0100 ####[facility] [address] [place], [address] CO2 [Moles/Vol] 27.0 mmol/L Normal 21.0-32.0 [facility] Comment on above: Performed By: #### L 500.2500, L100.0100 ####[facility] [address] [place], [address] Creatinine [Mass/Vol] 1.07 mg/dL Normal 0.70-1.20 [facility] Comment on above: Performed By: #### L 500.2500, L100.0100 ####[facility] [address] [place], [address] ECRCL 40.54 ml/min Low 50-250 [facility] Comment on above: Performed By: #### L 500.2500, L100.0100 ####[facility] [address] [place], [address] GAP 10 Normal 5-15 [facility] Comment on above: Performed By: #### L 500.2500, L100.0100 ####[facility] [address] [place], [address] GFR/1.73 sq M.predicted among non-blacks MDRD (S/P/Bld) [Vol rate/Area] 52 mL/min/{1.73_m2} Low >60 [facility] Comment on above: Result Comment: mL/m in/1.73m2 CKD-EPI Creatinine Equation (2020) Performed By: #### L 500.2500, L100.0100 ####[facility] [address] [place], [address] Glucose [Mass/Vol] 160 mg/dL High 70-99 [facility] Comment on above: Performed By: #### L 500.2500, L100.0100 ####[facility] [address] [place], [address] Potassium [Moles/Vol] 4.8 mmol/L Normal 3.3-5.1 [facility] Comment on above: Performed By: #### L 500.2500, L100.0100 ####[facility] [address] [place], [address] Sodium [Moles/Vol] 136 mmol/L Normal 133-145 [facility] Comment on above: Performed By: #### L 500.2500, L100.0100 ####[facility] [address] [place], [address] Urea nitrogen [Mass/Vol] 31 mg/dL High 4-19 [facility] Comment on above: Performed By: #### L 500.2500, L100.0100 ####[facility] [address] [place], [address] Bedside Glucoseon 01-22-2025 FINGERSTICK GLU 310 mg/dL High 74-106 [facility] Comment on above: Result Comment: KATARINA GEMENT OF PATIENT CARE PER NURSING PROTOCOL Performed By: #### L 501.080 ####[facility] [address] [place], [address] FINGERSTICK GLU 269 mg/dL High 74-106 [facility] Comment on above: Result Comment: KATARINA GEMENT OF PATIENT CARE PER NURSING PROTOCOL Performed By: #### L 501.080 ####[facility] [address] [place], [address] FINGERSTICK GLU 232 mg/dL High 74-106 [facility] Comment on above: Result Comment: KATARINA GEMENT OF PATIENT CARE PER NURSING PROTOCOL Performed By: #### L 501.080 ####[facility] [address] [place], [address] FINGERSTICK GLU 183 mg/dL High 74-106 [facility] Comment on above: Result Comment: KATARINA GEMENT OF PATIENT CARE PER NURSING PROTOCOL Performed By: #### L 501.080 ####[facility] [address] [place], [address] CBC W/Diff, Automatedon 05-2 -2024 Absolute Lymph 0.73 X10 3/uL Low 0.83-4.51 [facility] Comment on above: Performed By: #### L 500.2500, L100.0100 ####[facility] [address] [place], [address] Absolute Neut 11.7 X10 3/uL High 2.0-7.7 [facility] Comment on above: Performed By: #### L 500.2500, L100.0100 ####[facility] [address] [place], [address] Basophils/100 WBC (Bld) 0.0 % Normal 0-1 [facility] Comment on above: Performed By: #### L 500.2500, L100.0100 ####[facility] [address] [place], [address] Eosinophils/100 WBC (Bld) 0.0 % Normal 0-5 [facility] Comment on above: Performed By: #### L 500.2500, L100.0100 ####[facility] [address] [place], [address] Erythrocyte distribution width (RBC) [Ratio] 15.9 % High 11.6-14.6 [facility] Comment on above: Performed By: #### L 500.2500, L100.0100 ####[facility] [address] [place], [address] Hematocrit (Bld) [Volume fraction] 35.6 % Low 37-47 [facility] Comment on above: Performed By: #### L 500.2500, L100.0100 ####[facility] [address] [place], [address] Hemoglobin (Bld) [Mass/Vol] 11.1 g/dL Low 12.0-15.0 [facility] Comment on above: Performed By: #### L 500.2500, L100.0100 ####[facility] [address] [place], [address] IG% 0.500 Normal 0.0-0.9 [facility] Comment on above: Result Comment: IG% - Immature Granulocytes (promyelocytes, myelocytes andmetamyelocytes) > 1% indicates that a LEFT SHIFT is Present. Performed By: #### L 500.2500, L100.0100 ####[facility] [address] [place], [address] Lymphocytes/100 WBC (Bld) 5.7 % Low 19-41 [facility] Comment on above: Performed By: #### L 500.2500, L100.0100 ####[facility] [address] [place], [address] MCH (RBC) [Entitic mass] 27.3 pg Normal 27.0-32.0 [facility] Comment on above: Performed By: #### L 500.2500, L100.0100 ####[facility] [address] [place], [address] MCHC (RBC) [Mass/Vol] 31.2 g/dL Low 32-36 [facility] Comment on above: Performed By: #### L 500.2500, L100.0100 ####[facility] [address] [place], [address] MCV (RBC) [Entitic vol] 87.7 fL Normal 81-99 [facility] Comment on above: Performed By: #### L 500.2500, L100.0100 ####[facility] [address] [place], [address] Monocytes/100 WBC (Bld) 2.4 % Normal 0-10 [facility] Comment on above: Performed By: #### L 500.2500, L100.0100 ####[facility] [address] [place], [address] Neutrophils/100 WBC (Bld) 91.4 % High 47-70 [facility] Comment on above: Performed By: #### L 500.2500, L100.0100 ####[facility] [address] [place], [address] Nucleated RBC (Bld) [#/Vol] 0 10*3/uL Normal 0-5 [facility] Comment on above: Performed By: #### L 500.2500, L100.0100 ####[facility] [address] [place] [place], [address] Platelet mean volume (Bld) [Entitic vol] 11.1 fL Normal 6.2-12.0 [facility] Comment on above: Performed By: #### L 500.2500, L100.0100 ####[facility] [address] [place], [address] Platelets (Bld) [#/Vol] 281 10*3/uL Normal 150-450 [facility] Comment on above: Performed By: #### L 500.2500, L100.0100 ####[facility] [address] [place], [address] RBC (Bld) [#/Vol] 4.06 10*6/uL Low 4.2-5.4 [facility] Comment on above: Performed By: #### L 500.2500, L100.0100 ####[facility] [address] [place], [address] RDW SD 51.3 fl High 35.1-43.9 [facility] Comment on above: Performed By: #### L 500.2500, L100.0100 ####[facility] [address] [place], [address] WBC (Bld) [#/Vol] 12.8 10*3/uL High 4.4-11.0 [facility] Comment on above: Performed By: #### L 500.2500, L100.0100 ####[facility] [address] [place], [address] Urine Cultureon 01-22-2025 URC Normal [facility] Comment on above: Performed By: #### M 100.2200 ####[facility] [address] [place], [address] Basic Metabolic Profile (BMP )on 01-21-2025 BUN/CRE 19.6 RATIO Normal 10-20 [facility] Comment on above: Performed By: #### L 503.7505, L500.2500 ####[facility] [address] [place], [address] Calcium [Mass/Vol] 9.8 mg/dL Normal 7.6-11.0 [facility] Comment on above: Performed By: #### L 503.7505, L500.2500 ####[facility] [address] [place], [address] Chloride [Moles/Vol] 99 mmol/L Normal 98-108 [facility] Comment on above: Performed By: #### L 503.7505, L500.2500 ####[facility] [address] [place], [address] CO2 [Moles/Vol] 24.3 mmol/L Normal 21.0-32.0 [facility] Comment on above: Performed By: #### L 503.7505, L500.2500 ####[facility] [address] [place], [address] Creatinine [Mass/Vol] 1.19 mg/dL Normal 0.70-1.20 [facility] Comment on above: Performed By: #### L 503.7505, L500.2500 ####[facility] [address] [place], [address] ECRCL 36.45 ml/min Low 50-250 [facility] Comment on above: Performed By: #### L 503.7505, L500.2500 ####[facility] [address] [place], [address] GAP 14 Normal 5-15 [facility] Comment on above: Performed By: #### L 503.7505, L500.2500 ####[facility] [address] [place], [address] GFR/1.73 sq M.predicted among non-blacks MDRD (S/P/Bld) [Vol rate/Area] 46 mL/min/{1.73_m2} Low >60 [facility] Comment on above: Result Comment: mL/m in/1.73m2 CKD-EPI Creatinine Equation (2020) Performed By: #### L 503.7505, L500.2500 ####[facility] [address] [place], [address] Glucose [Mass/Vol] 208 mg/dL High 70-99 [facility] Comment on above: Performed By: #### L 503.7505, L500.2500 ####[facility] [address] [place], [address] Potassium [Moles/Vol] 4.0 mmol/L Normal 3.3-5.1 [facility] Comment on above: Performed By: #### L 503.7505, L500.2500 ####[facility] [address] [place], [address] Sodium [Moles/Vol] 138 mmol/L Normal 133-145 [facility] Comment on above: Performed By: #### L 503.7505, L500.2500 ####[facility] [address] [place], [address] Urea nitrogen [Mass/Vol] 23 mg/dL High 4-19 [facility] Comment on above: Performed By: #### L 503.7505, L500.2500 ####[facility] [address] [place], [address] Bedside Glucoseon 01-21-2025 FINGERSTICK GLU 271 mg/dL High 74-106 [facility] Comment on above: Result Comment: KATARINA GEMENT OF PATIENT CARE PER NURSING PROTOCOL Performed By: #### L 501.080 ####[facility] [address] [place], [address] FINGERSTICK GLU 254 mg/dL High 74-106 [facility] Comment on above: Result Comment: KATARINA GEMENT OF PATIENT CARE PER NURSING PROTOCOL Performed By: #### L 501.080 ####[facility] [address] [place], [address] FINGERSTICK GLU 323 mg/dL High 74-106 [facility] Comment on above: Result Comment: KATARINA GEMENT OF PATIENT CARE PER NURSING PROTOCOL Performed By: #### L 501.080 ####[facility] [address] [place], [address] FINGERSTICK GLU 202 mg/dL High 74-106 [facility] Comment on above: Result Comment: KATARINA GEMENT OF PATIENT CARE PER NURSING PROTOCOL Performed By: #### L 501.080 ####[facility] [address] [place], [address] CBC W/Diff, Automatedon 05-2 Absolute Lymph 0.79 X10 3/uL Low 0.83-4.51 [facility] Comment on above: Performed By: #### L 100.0100 ####[facility] [address] [place], [address] Absolute Neut 9.1 X10 3/uL High 2.0-7.7 [facility] Comment on above: Performed By: #### L 100.0100 ####[facility] [address] [place], [address] Basophils/100 WBC (Bld) 0.0 % Normal 0-1 [facility] Comment on above: Performed By: #### L 100.0100 ####[facility] [address] [place], [address] Eosinophils/100 WBC (Bld) 0.0 % Normal 0-5 [facility] Comment on above: Performed By: #### L 100.0100 ####[facility] [address] [place], [address] Erythrocyte distribution width (RBC) [Ratio] 16.0 % High 11.6-14.6 [facility] Comment on above: Performed By: #### L 100.0100 ####[facility] [address] [place], [address] Hematocrit (Bld) [Volume fraction] 35.0 % Low 37-47 [facility] Comment on above: Performed By: #### L 100.0100 ####[facility] [address] [place], [address] Hemoglobin (Bld) [Mass/Vol] 10.8 g/dL Low 12.0-15.0 [facility] Comment on above: Performed By: #### L 100.0100 ####[facility] [address] [place], [address] IG% 0.400 Normal 0.0-0.9 [facility] Comment on above: Result Comment: IG% - Immature Granulocytes (promyelocytes, myelocytes andmetamyelocytes) > 1% indicates that a LEFT SHIFT is Present. Performed By: #### L 100.0100 ####[facility] [address] [place], [address] Lymphocytes/100 WBC (Bld) 7.7 % Low 19-41 [facility] Comment on above: Performed By: #### L 100.0100 ####[facility] [address] [place], [address] MCH (RBC) [Entitic mass] 27.4 pg Normal 27.0-32.0 [facility] Comment on above: Performed By: #### L 100.0100 ####[facility] [address] [place], [address] MCHC (RBC) [Mass/Vol] 30.9 g/dL Low 32-36 [facility] Comment on above: Performed By: #### L 100.0100 ####[facility] [address] [place], [address] MCV (RBC) [Entitic vol] 88.8 fL Normal 81-99 [facility] Comment on above: Performed By: #### L 100.0100 ####[facility] [address] [place], [address] Monocytes/100 WBC (Bld) 3.5 % Normal 0-10 [facility] Comment on above: Performed By: #### L 100.0100 ####[facility] [address] [place], [address] Neutrophils/100 WBC (Bld) 88.4 % High 47-70 [facility] Comment on above: Performed By: #### L 100.0100 ####[facility] [address] [place], [address] Nucleated RBC (Bld) [#/Vol] 0 10*3/uL Normal 0-5 [facility] Comment on above: Performed By: #### L 100.0100 ####[facility] [address] [place], [address] Platelet mean volume (Bld) [Entitic vol] 11.0 fL Normal 6.2-12.0 [facility] Comment on above: Performed By: #### L 100.0100 ####[facility] [address] [place], [address] Platelets (Bld) [#/Vol] 245 10*3/uL Normal 150-450 [facility] Comment on above: Performed By: #### L 100.0100 ####[facility] [address] [place], [address] RBC (Bld) [#/Vol] 3.94 10*6/uL Low 4.2-5.4 [facility] Comment on above: Performed By: #### L 100.0100 ####[facility] [address] [place], [address] RDW SD 51.8 fl High 35.1-43.9 [facility] Comment on above: Performed By: #### L 100.0100 ####[facility] [address] [place], [address] WBC (Bld) [#/Vol] 10.3 10*3/uL Normal 4.4-11.0 [facility] Comment on above: Performed By: #### L 100.0100 ####[facility] [address] [place], [address] Chest 1 View (Portable)on Chest 1 View (Portable) Normal [facility] L503.7505on 01-21-2025 Natriuretic peptide B (Bld) [Mass/Vol] 59774 pg/mL High <=1800 [facility] Comment on above: Result Comment: Hear t Failure Unlikely: < 300 pg/mLHeart Failure Likely< 50 Years: > 450 pg/mL50-75 Years: > 900 pg/mL>75 Years: > 1800 pg/mL Performed By: #### L 503.7505, L500.2500 ####[facility] [address] [place], [address] Natriuretic peptide.B prohor hayley N-Terminal [Mass/volume] in Serum or PlasmaOrdered By: Sandeep Marie on 01-21-2025 Natriuretic peptide.B prohormone N-Terminal [Mass/Vol] 52574 pg/mL High <1800 [facility] 12 Lead EKGon 01-20-2025 12 Lead EKG Normal [facility] Activated partial thrombopla stin time (aPTT) in platelet poor plasma by coagulation aOrdered By: Jeevan Yoder on 01-20-2025 aPTT Coag (PPP) [Time] 26.9 s 24.1-36.2 [facility] Assessment of wrist artery p atency prior to arterial punctureOrdered By: Lucio Borden on 01-20-2025 Arterial patency Wrist artery --pre arterial puncture Positive [facility] Bedside Glucoseon 01-20-2025 FINGERSTICK GLU 265 mg/dL High 74-106 [facility] Comment on above: Result Comment: KATARINA GEMENT OF PATIENT CARE PER NURSING PROTOCOL Performed By: #### L 501.080 ####[facility] [address] [place], [address] FINGERSTICK GLU 389 mg/dL High 74-106 [facility] Comment on above: Result Comment: KATARINA GEMENT OF PATIENT CARE PER NURSING PROTOCOL Performed By: #### L 501.080 ####[facility] [address] [place], [address] FINGERSTICK GLU 361 mg/dL High 74-106 [facility] Comment on above: Result Comment: KATARINA GEMENT OF PATIENT CARE PER NURSING PROTOCOL Performed By: #### L 501.080 ####[facility] [address] [place], [address] FINGERSTICK GLU 338 mg/dL High 74-106 [facility] Comment on above: Result Comment: KATARINA GEMENT OF PATIENT CARE PER NURSING PROTOCOL Performed By: #### L 501.080 ####[facility] [address] [place], [address] Bilirubin Test strip Ql (U)O rdered By: Jeevan Yoder on 01-20-2025 Bilirubin Ql (U) Negative Negative [facility] Bilirubin, totalOrdered By: Jeevan Yoder on 01-20-2025 Bilirubin [Mass/Vol] 0.26 mg/dL 0.00-1.30 [facility] BARON TEST Positive Normal [facility] Comment on above: Performed By: #### L 9000.0800 ####[facility] [address] [place], [address] Base excess Calc (Bld) [Moles/Vol] 10 mmol/L High -2 to +2 [facility] Comment on above: Performed By: #### L 9000.0800 ####[facility] [address] [place], [address] Blood Gas Type ART Normal [facility] Comment on above: Performed By: #### L 9000.0800 ####[facility] [address] [place], [address] CO2 [Moles/Vol] 37 mmol/L Normal [facility] Comment on above: Performed By: #### L 9000.0800 ####[facility] [address] [place], [address] FI02 30.0 Normal [facility] Comment on above: Performed By: #### L 9000.0800 ####[facility] [address] [place], [address] HCO3 (Bld) [Moles/Vol] 35.5 mmol/L High 22-26 [facility] Comment on above: Performed By: #### L 9000.0800 ####[facility] [address] [place], [address] Normal [facility] Comment on above: Performed By: #### L 9000.0800 ####[facility] [address] [place], [address] O2 Delivery Dev BiPAP Normal [facility] Comment on above: Performed By: #### L 9000.0800 ####[facility] [address] [place], [address] pCO2 59.4 mmHg High 35-45 [facility] Comment on above: Performed By: #### L 0.0800 ####[facility] [address] [place], [address] PEEP 8 Normal [facility] Comment on above: Performed By: #### L 9000.0800 ####[facility] [address] [place], [address] pH (Bld) 7.38 [pH] Normal 7.35-7.45 [facility] Comment on above: Performed By: #### L 8999.0800 ####[facility] [address] [place], [address] PO2 21 mmHG Invalid Interpretation Code 75-100 [facility] Comment on above: Performed By: #### L 900.0800 ####[facility] [address] [place], [address] Read Back By Yes Normal [facility] Comment on above: Performed By: #### L 0.0800 ####[facility] [address] [place], [address] Results To tereletsky Normal [facility] Comment on above: Performed By: #### L 9000.0800 ####[facility] [address] [place], [address] RR 14 Normal [facility] Comment on above: Performed By: #### L 9000.0800 ####[facility] [address] [place], [address] SITE R Radial Normal [facility] Comment on above: Performed By: #### L 9000.0800 ####[facility] [address] [place], [address] SO2 32 Low 95-99 [facility] Comment on above: Performed By: #### L 9000.0800 ####[facility] [address] [place], [address] Time Given 16:55:40 [facility] Comment on above: Performed By: #### L 9000.0800 ####[facility] [address] [place], [address] Vt 500.0 mL Normal [facility] Comment on above: Performed By: #### L 9000.0800 ####[facility] [address] [place], [address] BARON TEST Positive Normal [facility] Comment on above: Performed By: #### L 9000.0800 ####[facility] [address] [place], [address] Base excess Calc (Bld) [Moles/Vol] 5 mmol/L High -2 to +2 [facility] Comment on above: Performed By: #### L 9000.0800 ####[facility] [address] [place], [address] Blood Gas Type ART Normal [facility] Comment on above: Performed By: #### L 9000.0800 ####[facility] [address] [place], [address] CO2 [Moles/Vol] 33 mmol/L [facility] Comment on above: Performed By: #### L 9000.0800 ####[facility] [address] [place], [address] FI02 30.0 [facility] Comment on above: Performed By: #### L 9000.0800 ####[facility] [address] [place], [address] HCO3 (Bld) [Moles/Vol] 30.8 mmol/L High 22-26 [facility] Comment on above: Performed By: #### L 9000.0800 ####[facility] [address] [place], [address] Mode Not entered [facility] Comment on above: Performed By: #### L 9000.0800 ####[facility] [address] [place], [address] O2 Delivery Dev BiPAP [facility] Comment on above: Performed By: #### L 9000.0800 ####[facility] [address] [place], [address] pCO2 56.2 mmHg High 35-45 [facility] Comment on above: Performed By: #### L 9000.0800 ####[facility] [address] [place], [address] PEEP 8 Normal [facility] Comment on above: Performed By: #### L 9000.0800 ####[facility] [address] [place], [address] pH (Bld) 7.35 [pH] Normal 7.35-7.45 [facility] Comment on above: Performed By: #### L 9000.0800 ####[facility] [address] [place], [address] PO2 37 mmHG Invalid Interpretation Code 75-100 [facility] Comment on above: Performed By: #### L 0.0800 ####[facility] [address] [place], [address] Read Back By Yes Normal [facility] Comment on above: Performed By: #### L 0.0800 ####[facility] [address] [place], [address] RR 14 Normal [facility] Comment on above: Performed By: #### L 0.0800 ####[facility] [address] [place], [address] SITE R Radial Normal [facility] Comment on above: Performed By: #### L 0.0800 ####[facility] [address] [place], [address] SO2 66 Low 95-99 [facility] Comment on above: Performed By: #### L 8999.0800 ####[facility] [address] [place], [address] Vt 500.0 mL Normal [facility] Comment on above: Performed By: #### L 0.0800 ####[facility] [address] [place], [address] BARON TEST Positive Normal [facility] Comment on above: Performed By: #### L 9000.0800 ####[facility] [address] [place], [address] Base excess Calc (Bld) [Moles/Vol] 5 mmol/L High -2 to +2 [facility] Comment on above: Performed By: #### L 9000.0800 ####[facility] [address] [place], [address] Blood Gas Type ART Normal [facility] Comment on above: Performed By: #### L 8999.0800 ####[facility] [address] [place], [address] CO2 [Moles/Vol] 34 mmol/L Normal [facility] Comment on above: Performed By: #### L 8999.0800 ####[facility] [address] [place], [address] Comment Normal [facility] Comment on above: Result Comment: AVAP S 500vt 14rr 100% +8 maxP=26 minP=18 Performed By: #### L 0.0800 ####[facility] [address] [place], [address] FI02 100.0 Normal [facility] Comment on above: Performed By: #### L 0.0800 ####[facility] [address] [place], [address] HCO3 (Bld) [Moles/Vol] 31.6 mmol/L High 22-26 [facility] Comment on above: Performed By: #### L 8999.0800 ####[facility] [address] [place], [address] Mode Not entered Normal [facility] Comment on above: Performed By: #### L 0.0800 ####[facility] [address] [place], [address] O2 Delivery Dev BiPAP Normal [facility] Comment on above: Performed By: #### L 8999.0800 ####[facility] [address] [place], [address] pCO2 63.0 mmHg High 35-45 [facility] Comment on above: Performed By: #### L 0.0800 ####[facility] [address] [place], [address] pH (Bld) 7.31 [pH] Low 7.35-7.45 [facility] Comment on above: Performed By: #### L 9000.0800 ####[facility] [address] [place], [address] PO2 83 mmHG Normal 75-100 [facility] Comment on above: Performed By: #### L 9000.0800 ####[facility] [address] [place], [address] SITE R Radial Normal [facility] Comment on above: Performed By: #### L 9000.0800 ####[facility] [address] [place], [address] SO2 95 Normal 95-99 [facility] Comment on above: Performed By: #### L 9000.0800 ####[facility] [address] [place], [address] Blood base excess determinat ionOrdered By: Lucio Borden on 01-20-2025 Base excess Calc (BldV) [Moles/Vol] 10 mmol/L High --2 [facility] Blood bicarbonate measuremen tOrdered By: Lucio Borden on 01-20-2025 HCO3 (Bld) [Moles/Vol] 35.5 mmol/L High 22-26 [facility] Blood cultureOrdered By: Mikey Marie on 01-20-2025 Bacteria identified Cx Nom (Bld) No growth in 5 days. [facility] Blood cultureOrdered By: Maeve Yoder on 01-20-2025 Bacteria identified Cx Nom (Bld) No growth in 5 days. [facility] Bacteria identified Cx Nom (Bld) No growth in 5 days. [facility] CBC W/Diff, Automatedon 12-30 Absolute Lymph 4.62 X10 3/uL High 0.83-4.51 [facility] Comment on above: Performed By: #### L 300.4310, L100.0100, L300.3900, L501.4021, L503.6005, L500.4050, M200.1000 ####[facility] [address] [place], [address] Absolute Neut 8.4 X10 3/uL High 2.0-7.7 [facility] Comment on above: Performed By: #### L 300.4310, L100.0100, L300.3900, L501.4021, L503.6005, L500.4050, M200.1000 ####[facility] [address] [place], [address] Basophils/100 WBC (Bld) 0.6 % Normal 0-1 [facility] Comment on above: Performed By: #### L 300.4310, L100.0100, L300.3900, L501.4021, L503.6005, L500.4050, M200.1000 ####[facility] [address] [place], [address] Eosinophils/100 WBC (Bld) 0.8 % Normal 0-5 [facility] Comment on above: Performed By: #### L 300.4310, L100.0100, L300.3900, L501.4021, L503.6005, L500.4050, M200.1000 ####[facility] [address] [place], [address] Erythrocyte distribution width (RBC) [Ratio] 16.0 % High 11.6-14.6 [facility] Comment on above: Performed By: #### L 300.4310, L100.0100, L300.3900, L501.4021, L503.6005, L500.4050, M200.1000 ####[facility] [address] [place], [address] Hematocrit (Bld) [Volume fraction] 39.6 % Normal 37-47 [facility] Comment on above: Performed By: #### L 300.4310, L100.0100, L300.3900, L501.4021, L503.6005, L500.4050, M200.1000 ####[facility] [address] [place], [address] Hemoglobin (Bld) [Mass/Vol] 12.1 g/dL Normal 12.0-15.0 [facility] Comment on above: Performed By: #### L 300.4310, L100.0100, L300.3900, L501.4021, L503.6005, L500.4050, M200.1000 ####[facility] [address] [facility] [place], [address] IG% 0.500 Normal 0.0-0.9 [facility] Comment on above: Result Comment: IG% - Immature Granulocytes (promyelocytes, myelocytes andmetamyelocytes) > 1% indicates that a LEFT SHIFT is Present. Performed By: #### L 300.4310, L100.0100, L300.3900, L501.4021, L503.6005, L500.4050, M200.1000 ####[facility] [address] [facility] [place], [address] Lymphocytes/100 WBC (Bld) 32.0 % Normal 19-41 [facility] Comment on above: Performed By: #### L 300.4310, L100.0100, L300.3900, L501.4021, L503.6005, L500.4050, M200.1000 ####[facility] [address] [place], [address] MCH (RBC) [Entitic mass] 27.4 pg Normal 27.0-32.0 [facility] Comment on above: Performed By: #### L 300.4310, L100.0100, L300.3900, L501.4021, L503.6005, L500.4050, M200.1000 ####[facility] [address] [place], [address] MCHC (RBC) [Mass/Vol] 30.6 g/dL Low 32-36 [facility] Comment on above: Performed By: #### L 300.4310, L100.0100, L300.3900, L501.4021, L503.6005, L500.4050, M200.1000 ####[facility] [address] [place], [address] MCV (RBC) [Entitic vol] 89.8 fL Normal 81-99 [facility] Comment on above: Performed By: #### L 300.4310, L100.0100, L300.3900, L501.4021, L503.6005, L500.4050, M200.1000 ####[facility] [address] [place], [address] Monocytes/100 WBC (Bld) 7.7 % Normal 0-10 [facility] Comment on above: Performed By: #### L 300.4310, L100.0100, L300.3900, L501.4021, L503.6005, L500.4050, M200.1000 ####[facility] [address] [place], [address] Neutrophils/100 WBC (Bld) 58.4 % Normal 47-70 [facility] Comment on above: Performed By: #### L 300.4310, L100.0100, L300.3900, L501.4021, L503.6005, L500.4050, M200.1000 ####[facility] [address] [place], [address] Nucleated RBC (Bld) [#/Vol] 0 10*3/uL Normal 0-5 [facility] Comment on above: Performed By: #### L 300.4310, L100.0100, L300.3900, L501.4021, L503.6005, L500.4050, M200.1000 ####[facility] [address] [place], [address] Platelet mean volume (Bld) [Entitic vol] 12.0 fL Normal 6.2-12.0 [facility] Comment on above: Performed By: #### L 300.4310, L100.0100, L300.3900, L501.4021, L503.6005, L500.4050, M200.1000 ####[facility] [address] [place], [address] Platelets (Bld) [#/Vol] 287 10*3/uL Normal 150-450 [facility] Comment on above: Performed By: #### L 300.4310, L100.0100, L300.3900, L501.4021, L503.6005, L500.4050, M200.1000 ####[facility] [address] [place], [address] RBC (Bld) [#/Vol] 4.41 10*6/uL Normal 4.2-5.4 [facility] Comment on above: Performed By: #### L 300.4310, L100.0100, L300.3900, L501.4021, L503.6005, L500.4050, M200.1000 ####[facility] [address] [place], [address] RDW SD 52.7 fl High 35.1-43.9 [facility] Comment on above: Performed By: #### L 300.4310, L100.0100, L300.3900, L501.4021, L503.6005, L500.4050, M200.1000 ####[facility] [address] [place], [address] WBC (Bld) [#/Vol] 14.4 10*3/uL High 4.4-11.0 [facility] Comment on above: Performed By: #### L 300.4310, L100.0100, L300.3900, L501.4021, L503.6005, L500.4050, M200.1000 ####[facility] [address] [place], [address] CTA Chest W/WO Contraston CTA Chest W/WO Contrast Normal [facility] Calculated very low density lipoprotein (VLDL) cholesterol measurementOrdered By: Sandeep Marie on 01-20-2025 Calculated very low density lipoprotein (VLDL) cholesterol measurement 12 mg/dL 5-40 [facility] Comprehensive Metabolic Prof ilon 01-20-2025 Albumin [Mass/Vol] 3.6 g/dL Normal 3.4-4.8 [facility] Comment on above: Performed By: #### L 300.4310, L100.0100, L300.3900, L501.4021, L503.6005, L500.4050, M200.1000 ####[facility] [address] [place], [place], [address] Albumin/Globulin [Mass ratio] 0.9 {ratio} Normal 0.9-2.4 [facility] Comment on above: Performed By: #### L 300.4310, L100.0100, L300.3900, L501.4021, L503.6005, L500.4050, M200.1000 ####[facility] [address] [place], [address] ALK PHOS 143 U/L High 35-104 [facility] Comment on above: Performed By: #### L 300.4310, L100.0100, L300.3900, L501.4021, L503.6005, L500.4050, M200.1000 ####[facility] [address] [place], [address] ALT [Catalytic activity/Vol] 36 U/L High <=34 [facility] Comment on above: Performed By: #### L 300.4310, L100.0100, L300.3900, L501.4021, L503.6005, L500.4050, M200.1000 ####[facility] [address] [place], [address] AST [Catalytic activity/Vol] 81 U/L High <=31 [facility] Comment on above: Result Comment: Hemo lysis present, Results??could be affected.?? Performed By: #### L 300.4310, L100.0100, L300.3900, L501.4021, L503.6005, L500.4050, M200.1000 ####[facility] [address] [place], [address] Bilirubin [Mass/Vol] 0.26 mg/dL Normal 0.00-1.30 [facility] Comment on above: Performed By: #### L 300.4310, L100.0100, L300.3900, L501.4021, L503.6005, L500.4050, M200.1000 ####[facility] [address] [place], [address] BUN/CRE 8.1 RATIO Low 10-20 [facility] Comment on above: Performed By: #### L 300.4310, L100.0100, L300.3900, L501.4021, L503.6005, L500.4050, M200.1000 ####[facility] [address] [place], [address] Calcium [Mass/Vol] 10.2 mg/dL Normal 7.6-11.0 [facility] Comment on above: Performed By: #### L 300.4310, L100.0100, L300.3900, L501.4021, L503.6005, L500.4050, M200.1000 ####[facility] [address] [place], [address] Chloride [Moles/Vol] 97 mmol/L Low 98-108 [facility] Comment on above: Performed By: #### L 300.4310, L100.0100, L300.3900, L501.4021, L503.6005, L500.4050, M200.1000 ####[facility] [address] [place], [address] CO2 [Moles/Vol] 25.7 mmol/L Normal 21.0-32.0 [facility] Comment on above: Performed By: #### L 300.4310, L100.0100, L300.3900, L501.4021, L503.6005, L500.4050, M200.1000 ####[facility] [address] [place], [address] Creatinine [Mass/Vol] 1.24 mg/dL High 0.70-1.20 [facility] Comment on above: Performed By: #### L 300.4310, L100.0100, L300.3900, L501.4021, L503.6005, L500.4050, M200.1000 ####[facility] [address] [place], [address] ECRCL 34.84 ml/min Low 50-250 [facility] Comment on above: Performed By: #### L 300.4310, L100.0100, L300.3900, L501.4021, L503.6005, L500.4050, M200.1000 ####[facility] [address] [place], [address] GAP 15 Normal 5-15 [facility] Comment on above: Performed By: #### L 300.4310, L100.0100, L300.3900, L501.4021, L503.6005, L500.4050, M200.1000 ####[facility] [address] [place], [address] GFR/1.73 sq M.predicted among non-blacks MDRD (S/P/Bld) [Vol rate/Area] 44 mL/min/{1.73_m2} Low >60 [facility] Comment on above: Result Comment: mL/m in/1.73m2 CKD-EPI Creatinine Equation (2020) Performed By: #### L 300.4310, L100.0100, L300.3900, L501.4021, L503.6005, L500.4050, M200.1000 ####[facility] [address] [place], [address] Globulin (S) [Mass/Vol] 4.1 g/dL Normal 2.2-4.2 [facility] Comment on above: Performed By: #### L 300.4310, L100.0100, L300.3900, L501.4021, L503.6005, L500.4050, M200.1000 ####[facility] [address] [place], [address] Glucose [Mass/Vol] 347 mg/dL High 70-99 [facility] Comment on above: Performed By: #### L 300.4310, L100.0100, L300.3900, L501.4021, L503.6005, L500.4050, M200.1000 ####[facility] [address] [place], [address] Potassium [Moles/Vol] 4.0 mmol/L Normal 3.3-5.1 [facility] Comment on above: Result Comment: Hemo lysis present, Results??could be affected.?? Performed By: #### L 300.4310, L100.0100, L300.3900, L501.4021, L503.6005, L500.4050, M200.1000 ####[facility] [address] [place], [address] Sodium [Moles/Vol] 137 mmol/L Normal 133-145 [facility] Comment on above: Performed By: #### L 300.4310, L100.0100, L300.3900, L501.4021, L503.6005, L500.4050, M200.1000 ####[facility] [address] [place], [address] T PROT 7.6 g/dL Normal 5.9-8.4 [facility] Comment on above: Performed By: #### L 300.4310, L100.0100, L300.3900, L501.4021, L503.6005, L500.4050, M200.1000 ####[facility] [address], [address] Urea nitrogen [Mass/Vol] 10 mg/dL Normal 4-19 [facility] Comment on above: Performed By: #### L 300.4310, L100.0100, L300.3900, L501.4021, L503.6005, L500.4050, M200.1000 ####[facility] [address] [place], [address] Echo Completeon 01-20-2025 Echo Complete Normal [facility] Echocardiogram study reportO rdered By: Marcelina Soto on 01-20-2025 Study report [facility] Work Phone: Emergency Department Summary on 01-20-2025 Emergency Department Summary Normal [facility] H AND P Exam - Hospitaliston 01-20-2025 H&P Exam - Hospitalist Normal [facility] Hemoglobin A1con 01-20-2025 HbA1c (Bld) [Mass fraction] 10.6 % High <=5.6 [facility] Comment on above: Result Comment: Norm al < 5.7 % Prediabetic 5.7 - 6.4 % Diabetic >or= 6.5 % Please note range changes. Performed By: #### L 501.9985 ####[facility] [address] [place], [address] Hemoglobin A1c percentageOrd ered By: Sandeep Marie on 01-20-2025 HbA1c (Bld) [Mass fraction] 10.6 % High <5.7 [facility] Ketones Test strip Ql (U)Ord ered By: Jeevan Yoder on 01-20-2025 Ketones Ql (U) Negative Negative [facility] L499.0042on 01-20-2025 Trop T High Sen 71 ng/L Invalid Interpretation Code <=14 [facility] Comment on above: Result Comment: Crit ical Result(s) Called at:0237 by: EMA PATEL.??Results read back by same. Performed By: #### L 499.0042 ####[facility] [address] [place], [address] L499.0043on 01-20-2025 Trop T High Sen 94 ng/L Invalid Interpretation Code <=14 [facility] Comment on above: Order Comment: PT SUAREZ S NOT MADE IT TO ROOM YET FROM ER OF 409 Result Comment: Crit ical Result(s) Called at 0548: by: SHARONA ALVAREZ. ??Results read back by same. Performed By: #### L 499.0043 ####[facility] [address] [place], [address] L501.4021on 01-20-2025 Trop T High Sen 52 ng/L High <=14 [facility] Comment on above: Performed By: #### L 300.4310, L100.0100, L300.3900, L501.4021, L503.6005, L500.4050, M200.1000 ####[facility] [address] [place], [address] L503.7505on 01-20-2025 Natriuretic peptide B (Bld) [Mass/Vol] 9449 pg/mL High <=1800 [facility] Comment on above: Result Comment: Hear t Failure Unlikely: < 300 pg/mLHeart Failure Likely< 50 Years: > 450 pg/mL50-75 Years: > 900 pg/mL>75 Years: > 1800 pg/mL Performed By: #### L 501.9520, L503.7505, L500.4100 ####[facility] [address] [place], [address] LDL calc ser/plasOrdered By: Sandeep Marie on 01-20-2025 Cholesterol in LDL [Mass/Vol] 79 mg/dL [facility] Lactic Acidon 01-20-2025 Lactate [Moles/Vol] 1.7 mmol/L Normal 0.0-2.0 [facility] Comment on above: Performed By: #### L 503.6005 ####[facility] [address] [place], [address] Lactate [Moles/Vol] 2.0 mmol/L Normal 0.0-2.0 [facility] Comment on above: Order Comment: Comme nts: if result >2, system reflex orders 2nd test @ 4hrsY Result Comment: Crit ical Result(s) Called at 0615: by: SHARONA ALVAREZ. ??Results read back by same. Performed By: #### M 200.1000, L503.6005 ####[facility] [address] [place], [address] Lactate [Moles/Vol] 3.4 mmol/L Invalid Interpretation Code 0.0-2.0 [facility] Comment on above: Order Comment: Y Result Comment: Crit ical Result(s) Called at: 0116 by: E[facility] TO [facility].??Results read back by same. Performed By: #### L 300.4310, L100.0100, L300.3900, L501.4021, L503.6005, L500.4050, M200.1000 ####[facility] [address] [place], [address] Legionella Antigen Urineon 0 01-20-2025 LEGU Normal [facility] Comment on above: Performed By: #### M 300.0310, M300.4500 ####[facility] [address] [place], [address] Lipid Profileon 01-20-2025 CHOL:HDL 2.89 Normal [facility] Comment on above: Performed By: #### L 501.9520, L503.7505, L500.4100 ####[facility] [address] [place], [address] Cholesterol [Mass/Vol] 140 mg/dL Normal <=200 [facility] Comment on above: Result Comment: Chol esterol level, Desirable <200 mg/dLBorderline high cholesterol 200-239 mg/dLHigh cholesterol >=240 mg/dLRecommendations of the NCEP Adult Treatment Panel for thefollowing risk-cutoff thresholds for the [place] [employer]. Performed By: #### L 501.9520, L503.7505, L500.4100 ####[facility] [address] [place], [address] Cholesterol in HDL [Mass/Vol] 49 mg/dL Normal [facility] Comment on above: Result Comment: Camelia onal Cholesterol Education Program (NCEP) guidelines:<40 mg/dL: Low HDL-cholesterol (major risk factor for CHD)>= 60 mg/dL: High HDL-cholesterol (negative risk factor forCHD)HDL-cholesterol is affected by a number of factors, e.g.smoking, exercise, hormones, sex and age. Performed By: #### L 501.9520, L503.7505, L500.4100 ####[facility] [address] [place], [address] Cholesterol in LDL [Mass/Vol] 79 mg/dL Normal [facility] Comment on above: Result Comment: Bord hbwdau=833-825 mg/dL Higher Mhzg=499 mg/dL or greater Performed By: #### L 501.9520, L503.7505, L500.4100 ####[facility] [address] [place], [address] Cholesterol in VLDL [Mass/Vol] 12 mg/dL Normal 5-40 [facility] Comment on above: Performed By: #### L 501.9520, L503.7505, L500.4100 ####[facility] [address] [place], [address] Triglyceride [Mass/Vol] 62 mg/dL Normal [facility] Comment on above: Result Comment: The drugs N-Acetylcysteine and Metamizole may falselydepress this assay.Normal range: <150 mg/dLBorderline High: 150-199 mg/dLHigh: 200-499 mg/dLVery High: >500 mg/dL Performed By: #### L 501.9520, L503.7505, L500.4100 ####[facility] [address] [place], [address] Measurement, pHOrdered By: Connor Borden on 01-20-2025 pH (Unsp spec) 7.38 [pH] 7.35-7.45 [facility] Mucus LM Ql (Urine sed)Order ed By: Jeevan Yoder on 01-20-2025 Mucus Ql (Urine sed) 0 SEEN /hpf [facility] Nitrite Test strip Ql (U)Ord ered By: Jeevan Yoedr on 01-20-2025 Nitrite Ql (U) Negative Negative [facility] No Panel InformationOrdered By: Lucio Borden on 01-20-2025 ART [facility] R Radial [facility] ST [facility] BiPAP [facility] 500.0 mL [facility] 14 [facility] 8 [facility] 16:55:40 [facility] Yes [facility] No Panel InformationOrdered By: Jeevan Yoder on 01-20-2025 See comment [facility] 81 U/L High <32 [facility] Partial Thromboplast Timeon 01-20-2025 aPTT Coag (Bld) [Time] 26.9 s Normal 24.1-36.2 [facility] Comment on above: Performed By: #### L 300.4310, L100.0100, L300.3900, L501.4021, L503.6005, L500.4050, M200.1000 ####[facility] [address] [place], [address] Protein Test strip Ql (U)Ord ered By: Jeevan Yoder on 01-20-2025 Protein Ql (U) 100 mg/dl High Negative [facility] Prothrombin Time w/INRon INR Coag (PPP) [Relative time] 1.1 {INR} Normal [facility] Comment on above: Performed By: #### L 300.4310, L100.0100, L300.3900, L501.4021, L503.6005, L500.4050, M200.1000 ####[facility] [address] [place], [address] PT Coag (PPP) [Time] 14.6 s Normal 11.7-14.9 [facility] Comment on above: Performed By: #### L 300.4310, L100.0100, L300.3900, L501.4021, L503.6005, L500.4050, M200.1000 ####[facility] [address] [place], [address] Prothrombin timeOrdered By: Jeevan Yoder on 01-20-2025 PT Coag (PPP) [Time] 14.6 s 11.7-14.9 [facility] RESPIRATORY PANEL MOLECULARo n 01-20-2025 RP PANEL Normal [facility] Comment on above: Performed By: #### M 100.638 ####[facility] [address] [place], [place], [id number] Respiratory pathogens detect ion panel by molecular detection methodOrdered By: Sandeep Marie on 01-20-2025 Respiratory pathogens DNA and RNA panel BEBETO+probe (Resp) [facility] Serum globulin measurementOr dered By: Jeevan Yoder on 01-20-2025 Globulin (S) [Mass/Vol] 4.1 g/dL 2.2-4.2 [facility] Serum or plasma alanine kelley otransferase (ALT) measurementOrdered By: Jeevan Yoder on 01-20-2025 ALT [Catalytic activity/Vol] 36 U/L High <35 [facility] Serum or plasma albumin melanie urement (mass/volume)Ordered By: Jeevan Yoder on 01-20-2025 Albumin [Mass/Vol] 3.6 g/dL 3.4-4.8 [facility] Serum or plasma albumin/glob ulin mass ratioOrdered By: Jeevan Yoder on 01-20-2025 Albumin/Globulin [Mass ratio] 0.9 {ratio} 0.9-2.4 [facility] Serum or plasma alkaline lissa sphatase measurementOrdered By: Jeevan Yoder on 01-20-2025 ALP [Catalytic activity/Vol] 143 U/L High 35-104 [facility] Serum or plasma cholesterol in HDL measurement (mass/volume)Ordered By: Sandeep Marie on 01-20-2025 Cholesterol in HDL [Mass/Vol] 49 mg/dL >40 [facility] Serum or plasma cholesterol measurement (mass/volume)Ordered By: Sandeep Marie on 01-20-2025 Cholesterol [Mass/Vol] 140 mg/dL <201 [facility] Squamous epithelial cells de tection in urine sediment by light microscopyOrdered By: Jeevan Yoder on 01-20-2025 Epithelial cells.squamous LM Ql (Urine sed) 5-10 SEEN /hpf 5-10 [facility] Strep pneumoniae Antig(UR,CS F)on 01-20-2025 STPAG Normal [facility] Comment on above: Performed By: #### M 300.7621, M300.7109 ####[facility] [address] [place], [address] TSH DL <= 0.005 mIU/L QnOrde red By: Sandeep Marie on 05-23-2025 TSH Qn 0.492 uIU/mL 0.300-4.200 [facility] Thyroid Stim Hormone (TSH)on 01-20-2025 TSH 0.492 uIU/mL Normal 0.300-4.200 [facility] Comment on above: Performed By: #### L 501.9520, L503.7505, L500.4100 ####[facility] [address] [place], [place], [id number] Total carbon dioxide measure mentOrdered By: Lucio Borden on 01-20-2025 CO2 [Moles/Vol] 37 mmol/L [facility] Total proteinOrdered By: Maeve Yoder on 01-20-2025 Protein [Mass/Vol] 7.6 g/dL 5.9-8.4 [facility] Troponin T.cardiac [Mass/vol ume] in Serum or Plasma by High sensitivity methodOrdered By: Jeevan Yoder on 01-20-2025 Troponin T.cardiac High sensitivity method [Mass/Vol] 94 ng/L High <14 [facility] Troponin T.cardiac High sensitivity method [Mass/Vol] 71 ng/L High <14 [facility] Troponin T.cardiac High sensitivity method [Mass/Vol] 52 ng/L High <14 [facility] Urinalysis, Completeon 01-20 EPI,SQUAMOUS 5-10 SEEN Normal 5-10 [facility] Comment on above: Order Comment: COLLE CTOR TO SPECIFY Performed By: #### L 400.0001 ####[facility] [address] [place], [address] RBC 5-10 SEEN Normal 0-5 [facility] Comment on above: Order Comment: COLLE CTOR TO SPECIFY Performed By: #### L 400.0001 ####[facility] [address] [place], [address] WBC 0-5 SEEN Normal 0-5 [facility] Comment on above: Order Comment: COLLE CTOR TO SPECIFY Performed By: #### L 400.0001 ####[facility] [address] [place], [address] BACTERIA 0 SEEN Normal None Seen [facility] Comment on above: Order Comment: MARSHALL CTOR TO SPECIFY Performed By: #### L 400.0001 ####[facility] [address] [place], [place], [address] Mucus Ql (Urine sed) 0 SEEN Normal [facility] Comment on above: Order Comment: MARSHALL CTOR TO SPECIFY Performed By: #### L 400.0001 ####[facility] [address] [place], [place], [id number] Urine Legionella pneumophila antigen detectionOrdered By: Sandeep Marie on 01-20-2025 L. pneumophila Ag Ql (U) [facility] Urine clarityOrdered By: Maeve Yoder on 01-20-2025 Clarity (U) Clear Clear [facility] Urine color determinationOrd ered By: Jeevan Yoder on 01-20-2025 Color (U) Straw Yellow [facility] Urine cultureOrdered By: Maeve Yoder on 01-20-2025 Bacteria identified Cx Nom (U) Proteus mirabilis Abnormal [facility] Urine glucose detectionOrder ed By: Jeevan Yoder on 01-20-2025 Glucose Ql (U) 1000 mg/dl High Normal [facility] Urine leukocyte esterase det ection by dipstickOrdered By: Jeevan Yoder on 01-20-2025 Leukocyte esterase Test strip Ql (U) Negative Negative [facility] Urine pHOrdered By: Jeevan rai on 01-20-2025 pH (U) 6.0 [pH] 5.0 - 8.0 [facility] Urine sediment bacteria coun t by microscopy (number/high power field)Ordered By: Jeevan Yoder on 01-20-2025 Bacteria LM.HPF (Urine sed) [#/Area] 0 /[HPF] None Seen [facility] Urine specific gravity measu rementOrdered By: Jeevan Yoder on 01-20-2025 Specific gravity (U) [Rel density] 1.010 1.002-1.030 [facility] Urine urobilinogen measureme ntOrdered By: Jeevan Yoder on 01-20-2025 Urobilinogen Ql (U) Normal mg/dl Normal [facility] White blood cell countOrdere d By: Jeevan Yoder on 01-20-2025 White blood cell count 0-5 SEEN /hpf 0-5 [facility] Anion gap in Serum or Plasma Ordered By: Ramone Smiley on 01-19-2025 Anion gap [Moles/Vol] 14 mmol/L 5-15 [facility] BUN/creatinine ratioOrdered By: Ramone Smiley on 01-19-2025 Urea nitrogen/Creatinine [Mass ratio] 7.7 mg/mg Low 10-20 [facility] Bilirubin, totalOrdered By: Ramone Smiley on 01-19-2025 Bilirubin [Mass/Vol] 0.25 mg/dL 0.00-1.30 [facility] CBC-Complete Blood Cnt No Di ffon 01-19-2025 Erythrocyte distribution width (RBC) [Ratio] 16.0 % High 11.6-14.6 [facility] Comment on above: Order Comment: Order Date: 01/19/25Order Info: [id number] - CBC Performed By: #### L 500.4050, L501.5200, L100.0500 ####[facility] [address] [place], [address] Hematocrit (Bld) [Volume fraction] 35.3 % Low 37-47 [facility] Comment on above: Order Comment: Order Date: 01/19/25Order Info: [id number] - CBC Performed By: #### L 500.4050, L501.5200, L100.0500 ####[facility] [address] [place], [address] Hemoglobin (Bld) [Mass/Vol] 10.9 g/dL Low 12.0-15.0 [facility] Comment on above: Order Comment: Order Date: 01/19/25Order Info: [id number] - CBC Performed By: #### L 500.4050, L501.5200, L100.0500 ####[facility] [address] [place], [address] MCH (RBC) [Entitic mass] 27.7 pg Normal 27.0-32.0 [facility] Comment on above: Order Comment: Order Date: 01/19/25Order Info: [id number] - CBC Performed By: #### L 500.4050, L501.5200, L100.0500 ####[facility] [address] [place], [address] MCHC (RBC) [Mass/Vol] 30.9 g/dL Low 32-36 [facility] Comment on above: Order Comment: Order Date: 01/19/25Order Info: [id number] - CBC Performed By: #### L 500.4050, L501.5200, L100.0500 ####[facility] [address] [place], [address] MCV (RBC) [Entitic vol] 89.6 fL Normal 81-99 [facility] Comment on above: Order Comment: Order Date: 01/19/25Order Info: [id number] - CBC Performed By: #### L 500.4050, L501.5200, L100.0500 ####[facility] [address] [place], [address] Platelet mean volume (Bld) [Entitic vol] 11.6 fL Normal 6.2-12.0 [facility] Comment on above: Order Comment: Order Date: 01/19/25Order Info: [id number] - CBC Performed By: #### L 500.4050, L501.5200, L100.0500 ####[facility] [address] [place], [address] Platelets (Bld) [#/Vol] 253 10*3/uL Normal 150-450 [facility] Comment on above: Order Comment: Order Date: 01/19/25Order Info: [id number] - CBC Performed By: #### L 500.4050, L501.5200, L100.0500 ####[facility] [address] [place], [address] RBC (Bld) [#/Vol] 3.94 10*6/uL Low 4.2-5.4 [facility] Comment on above: Order Comment: Order Date: 01/19/25Order Info: [id number] - CBC Performed By: #### L 500.4050, L501.5200, L100.0500 ####[facility] [address] [place], [address] RDW SD 52.7 fl High 35.1-43.9 [facility] Comment on above: Order Comment: Order Date: 01/19/25Order Info: [id number] - CBC Performed By: #### L 500.4050, L501.5200, L100.0500 ####[facility] [address] [place], [address] WBC (Bld) [#/Vol] 8.3 10*3/uL Normal 4.4-11.0 [facility] Comment on above: Order Comment: Order Date: 01/19/25Order Info: [id number] - CBC Performed By: #### L 500.4050, L501.5200, L100.0500 ####[facility] [address] [place], [address] Carbon dioxide, total [Moles /volume] in Central venous bloodOrdered By: Ramone Smiley on 01-19-2025 CO2 [Moles/Vol] 27.2 mmol/L 21.0-32.0 [facility] Chloride assayOrdered By: Richar Smiley on 01-19-2025 Chloride [Moles/Vol] 96 mmol/L Low 98-108 [facility] Comprehensive Metabolic Prof ilon 01-19-2025 Albumin [Mass/Vol] 3.4 g/dL Normal 3.4-4.8 [facility] Comment on above: Order Comment: Order Date: 01/19/25Order Info: [id number] - CMPOrder Info: [id number] - MG Performed By: #### L 500.4050, L501.5200, L100.0500 ####[facility] [address] [place], [address] Albumin/Globulin [Mass ratio] 0.9 {ratio} Normal 0.9-2.4 [facility] Comment on above: Order Comment: Order Date: 01/19/25Order Info: [id number] - CMPOrder Info: [id number] - MG Performed By: #### L 500.4050, L501.5200, L100.0500 ####[facility] [address] [place], [address] ALK PHOS 123 U/L High 35-104 [facility] Comment on above: Order Comment: Order Date: 01/19/25Order Info: [id number] - CMPOrder Info: [id number] - MG Performed By: #### L 500.4050, L501.5200, L100.0500 ####[facility] [address] [place], [address] ALT [Catalytic activity/Vol] 18 U/L Normal <=34 [facility] Comment on above: Order Comment: Order Date: 01/19/25Order Info: [id number] - CMPOrder Info: [id number] - MG Performed By: #### L 500.4050, L501.5200, L100.0500 ####[facility] [address] [place], [address] AST [Catalytic activity/Vol] 25 U/L Normal <=31 [facility] Comment on above: Order Comment: Order Date: 01/19/25Order Info: [id number] - CMPOrder Info: [id number] - MG Performed By: #### L 500.4050, L501.5200, L100.0500 ####[facility] [address] [place], [address] Bilirubin [Mass/Vol] 0.25 mg/dL Normal 0.00-1.30 [facility] Comment on above: Order Comment: Order Date: 01/19/25Order Info: [id number] - CMPOrder Info: [id number] - MG Performed By: #### L 500.4050, L501.5200, L100.0500 ####[facility] [address] [place], [address] BUN/CRE 7.7 RATIO Low 10-20 [facility] Comment on above: Order Comment: Order Date: 01/19/25Order Info: [id number] - CMPOrder Info: [id number] - MG Performed By: #### L 500.4050, L501.5200, L100.0500 ####[facility] [address] [place], [address] Calcium [Mass/Vol] 10.4 mg/dL Normal 7.6-11.0 [facility] Comment on above: Order Comment: Order Date: 01/19/25Order Info: [id number] - CMPOrder Info: [id number] - MG Performed By: #### L 500.4050, L501.5200, L100.0500 ####[facility] [address] [place], [address] Chloride [Moles/Vol] 96 mmol/L Low 98-108 [facility] Comment on above: Order Comment: Order Date: 01/19/25Order Info: [id number] - CMPOrder Info: [id number] - MG Performed By: #### L 500.4050, L501.5200, L100.0500 ####[facility] [address] [place], [address] CO2 [Moles/Vol] 27.2 mmol/L Normal 21.0-32.0 [facility] Comment on above: Order Comment: Order Date: 01/19/25Order Info: [id number] - CMPOrder Info: [id number] - MG Performed By: #### L 500.4050, L501.5200, L100.0500 ####[facility] [address] [place], [address] Creatinine [Mass/Vol] 1.06 mg/dL Normal 0.70-1.20 [facility] Comment on above: Order Comment: Order Date: 01/19/25Order Info: [id number] - CMPOrder Info: [id number] - MG Performed By: #### L 500.4050, L501.5200, L100.0500 ####[facility] [address] [place], [address] GAP 14 Normal 5-15 [facility] Comment on above: Order Comment: Order Date: 01/19/25Order Info: [id number] - CMPOrder Info: [id number] - MG Performed By: #### L 500.4050, L501.5200, L100.0500 ####[facility] [address] [place], [address] GFR/1.73 sq M.predicted among non-blacks MDRD (S/P/Bld) [Vol rate/Area] 53 mL/min/{1.73_m2} Low >60 [facility] Comment on above: Order Comment: Order Date: 01/19/25Order Info: [id number] - CMPOrder Info: [id number] - MG Result Comment: mL/m in/1.73m2 CKD-EPI Creatinine Equation (2020) Performed By: #### L 500.4050, L501.5200, L100.0500 ####[facility] [address] [place], [address] Globulin (S) [Mass/Vol] 3.9 g/dL Normal 2.2-4.2 [facility] Comment on above: Order Comment: Order Date: 01/19/25Order Info: [id number] - CMPOrder Info: [id number] - MG Performed By: #### L 500.4050, L501.5200, L100.0500 ####[facility] [address] [place], [address] Glucose [Mass/Vol] 288 mg/dL High 70-99 [facility] Comment on above: Order Comment: Order Date: 01/19/25Order Info: [id number] - CMPOrder Info: [id number] - MG Performed By: #### L 500.4050, L501.5200, L100.0500 ####[facility] [address] [place], [address] Potassium [Moles/Vol] 3.3 mmol/L Normal 3.3-5.1 [facility] Comment on above: Order Comment: Order Date: 01/19/25Order Info: [id number] - CMPOrder Info: [id number] - MG Performed By: #### L 500.4050, L501.5200, L100.0500 ####[facility] [address] [place], [address] Sodium [Moles/Vol] 137 mmol/L Normal 133-145 [facility] Comment on above: Order Comment: Order Date: 01/19/25Order Info: [id number] - CMPOrder Info: [id number] - MG Performed By: #### L 500.4050, L501.5200, L100.0500 ####[facility] [address] [place], [address] T PROT 7.3 g/dL Normal 5.9-8.4 [facility] Comment on above: Order Comment: Order Date: 01/19/25Order Info: [id number] - CMPOrder Info: [id number] - MG Performed By: #### L 500.4050, L501.5200, L100.0500 ####[facility] [address] [place], [address] Urea nitrogen [Mass/Vol] 8 mg/dL Normal 4-19 [facility] Comment on above: Order Comment: Order Date: 01/19/25Order Info: [id number] - CMPOrder Info: [id number] - MG Performed By: #### L 500.4050, L501.5200, L100.0500 ####[facility] [address] [place], [address] Erythrocyte distribution wid th ratioOrdered By: Ramone Smiley on 01-19-2025 Erythrocyte distribution width (RBC) [Ratio] 16.0 % High 11.6-14.6 [facility] Erythrocyte distribution wid th standard deviationOrdered By: Ramone Smiley on 01-19-2025 Erythrocyte distribution width (RBC) [Ratio] 52.7 fl High 35.1-43.9 [facility] Glomerular filtration rate ( GFR) estimation/1.73 sq m using serum, plasma, or whole bOrdered By: Ramone Smiley on 01-19-2025 GFR/1.73 sq M.predicted among non-blacks MDRD (S/P/Bld) [Vol rate/Area] 53 mL/min/{1.73_m2} Low >60 [facility] Hematocrit Auto (Bld) [Volum e fraction]Ordered By: Ramone Smiley on 01-19-2025 Hematocrit (Bld) [Volume fraction] 35.3 % Low 37-47 [facility] Hemoglobin measurementOrdere d By: Ramone Smiley on 01-19-2025 Hemoglobin (Bld) [Mass/Vol] 10.9 g/dL Low 12.0-15.0 [facility] L503.7505on 01-19-2025 Natriuretic peptide B (Bld) [Mass/Vol] 3173 pg/mL High <=1800 [facility] Comment on above: Order Comment: Order Date: 01/19/25Order Info: [id number] - CMPOrder Info: [id number] - MG Result Comment: Hear t Failure Unlikely: < 300 pg/mLHeart Failure Likely< 50 Years: > 450 pg/mL50-75 Years: > 900 pg/mL>75 Years: > 1800 pg/mL Performed By: #### L 503.7505 ####[facility] [address] [place], [place], [address] MCV (mean corpuscular volume ) determinationOrdered By: Ramone Smiley on 01-19-2025 MCV (RBC) [Entitic vol] 89.6 fL 81-99 [facility] Magnesiumon 01-19-2025 Magnesium [Mass/Vol] 2.3 mg/dL High 1.5-2.2 [facility] Comment on above: Order Comment: Order Date: 01/19/25Order Info: [id number] - CMPOrder Info: [id number] - MG Performed By: #### L 500.4050, L501.5200, L100.0500 ####[facility] [address] [place], [address] Magnesium measurement (mass/ volume)Ordered By: Ramone Smiley on 01-19-2025 Magnesium (Unsp spec) [Mass/Vol] 2.3 mg/dL High 1.5-2.2 [facility] Mean corpuscular hemoglobin (MCH) determinationOrdered By: Ramone Smiley on 01-19-2025 MCH (RBC) [Entitic mass] 27.7 pg 27.0-32.0 [facility] Natriuretic peptide.B prohor hayley N-Terminal [Mass/volume] in Serum or PlasmaOrdered By: Ramone Smiley on 01-19-2025 Natriuretic peptide.B prohormone N-Terminal [Mass/Vol] 3173 pg/mL High <1800 [facility] No Panel InformationOrdered By: Ramone Smiley on 01-19-2025 25 U/L <32 [facility] Platelet countOrdered By: Richar Smiley on 01-19-2025 Platelets (Bld) [#/Vol] 253 10*3/uL 150-450 [facility] Potassium measurement (mass/ volume)Ordered By: Ramone Smiley on 01-19-2025 Potassium (Unsp spec) [Mass/Vol] 3.3 mmol/L 3.3-5.1 [facility] RBC Auto (Bld) [#/Vol]Ordere d By: Ramone Smiley on 01-19-2025 RBC (Bld) [#/Vol] 3.94 10*6/uL Low 4.2-5.4 [facility] Serum creatinine measurement (mass/volume)Ordered By: Ramone Smiley on 01-19-2025 Creatinine [Mass/Vol] 1.06 mg/dL 0.70-1.20 [facility] Serum globulin measurementOr dered By: Ramone Smiley on 01-19-2025 Globulin (S) [Mass/Vol] 3.9 g/dL 2.2-4.2 [facility] Serum glucose measurement (m ass/volume)Ordered By: Ramone Smiley on 01-19-2025 Glucose [Mass/Vol] 288 mg/dL High 70-99 [facility] Serum or plasma alanine kelley otransferase (ALT) measurementOrdered By: Ramone Smiley on 01-19-2025 ALT [Catalytic activity/Vol] 18 U/L <35 [facility] Serum or plasma albumin melanie urement (mass/volume)Ordered By: Ramone Smiley on 01-19-2025 Albumin [Mass/Vol] 3.4 g/dL 3.4-4.8 [facility] Serum or plasma albumin/glob ulin mass ratioOrdered By: Ramone Smiley on 01-19-2025 Albumin/Globulin [Mass ratio] 0.9 {ratio} 0.9-2.4 [facility] Serum or plasma alkaline lissa sphatase measurementOrdered By: Ramone Smiley on 01-19-2025 ALP [Catalytic activity/Vol] 123 U/L High 35-104 [facility] Serum or plasma calcium melanie urement (mass/volume)Ordered By: Ramone Smiley on 01-19-2025 Calcium [Mass/Vol] 10.4 mg/dL 7.6-11.0 [facility] Serum or plasma urea nitroge n measurement (mass/volume)Ordered By: Ramone Smiley on 01-19-2025 Urea nitrogen [Mass/Vol] 8 mg/dL 4-19 [facility] Sodium levelOrdered By: Ramone Smiley on 01-19-2025 Sodium [Moles/Vol] 137 mmol/L 133-145 [facility] Total proteinOrdered By: Lilliam Smiley on 01-19-2025 Protein [Mass/Vol] 7.3 g/dL 5.9-8.4 [facility] White blood cell (WBC) count Ordered By: Ramone Smiley on 01-19-2025 WBC (Bld) [#/Vol] 8.3 10*3/uL 4.4-11.0 [facility] 12 Lead EKGon 01-15-2025 12 Lead EKG Normal [facility] Absolute lymphocyte countOrd ered By: Jeevan Yoder on 01-15-2025 Lymphocytes Auto (Unsp spec) [#/Vol] 1.92 10*3/uL 0.83-4.51 [facility] Absolute neutrophil countOrd ered By: Jeevan Yoder on 01-15-2025 Neutrophils (Bld) [#/Vol] 7.7 10*3/uL 2.0-7.7 [facility] Anion gap in Serum or Plasma Ordered By: Jeevan Yoder on 01-15-2025 Anion gap [Moles/Vol] 11 mmol/L 5-15 [facility] Automated lymphocyte count a s percentage of total leukocytesOrdered By: Jeevan Yoder on 01-15-2025 Lymphocytes/100 WBC Auto (Unsp spec) 18.1 % Low 19-41 [facility] BUN/creatinine ratioOrdered By: Jeevan Yoder on 01-15-2025 Urea nitrogen/Creatinine [Mass ratio] 16.6 mg/mg 10- [facility] Basic Metabolic Profile (BMP )on 01-15-2025 BUN/CRE 16.6 RATIO Normal - [facility] Comment on above: Performed By: #### L 501.4021, L500.2500, L100.0100 ####[facility] [address] [place], [address] Calcium [Mass/Vol] 9.6 mg/dL Normal 7.6-11.0 [facility] Comment on above: Performed By: #### L 501.4021, L500.2500, L100.0100 ####[facility] [address] [place], [address] Chloride [Moles/Vol] 102 mmol/L Normal 98-108 [facility] Comment on above: Performed By: #### L 501.4021, L500.2500, L100.0100 ####[facility] [address] [place], [address] CO2 [Moles/Vol] 25.0 mmol/L Normal 21.0-32.0 [facility] Comment on above: Performed By: #### L 501.4021, L500.2500, L100.0100 ####[facility] [address] [place], [address] Creatinine [Mass/Vol] 0.92 mg/dL Normal 0.70-1.20 [facility] Comment on above: Performed By: #### L 501.4021, L500.2500, L100.0100 ####[facility] [address] [place], [address] ECRCL 48.84 ml/min Low 50-250 [facility] Comment on above: Performed By: #### L 501.4021, L500.2500, L100.0100 ####[facility] [address] [place], [address] GAP 11 Normal 5-15 [facility] Comment on above: Performed By: #### L 501.4021, L500.2500, L100.0100 ####[facility] [address] [place], [address] GFR/1.73 sq M.predicted among non-blacks MDRD (S/P/Bld) [Vol rate/Area] 63 mL/min/{1.73_m2} Normal >60 [facility] Comment on above: Result Comment: mL/m in/1.73m2 CKD-EPI Creatinine Equation (2020) Performed By: #### L 501.4021, L500.2500, L100.0100 ####[facility] [address] [place], [address] Glucose [Mass/Vol] 144 mg/dL High 70-99 [facility] Comment on above: Performed By: #### L 501.4021, L500.2500, L100.0100 ####[facility] [address] [place] [place], [address] Potassium [Moles/Vol] 3.7 mmol/L Normal 3.3-5.1 [facility] Comment on above: Performed By: #### L 501.4021, L500.2500, L100.0100 ####[facility] [address] [place], [address] Sodium [Moles/Vol] 138 mmol/L Normal 133-145 [facility] Comment on above: Performed By: #### L 501.4021, L500.2500, L100.0100 ####[facility] [address] [place], [address] Urea nitrogen [Mass/Vol] 15 mg/dL Normal 4-19 [facility] Comment on above: Performed By: #### L 501.4021, L500.2500, L100.0100 ####[facility] [address] [place], [address] Basophil percentageOrdered B y: Jeevan Yoder on 01-15-2025 Basophils/100 WBC (Bld) 0.3 % 0-1 [facility] CBC W/Diff, Automatedon 12-29 Absolute Lymph 1.92 X10 3/uL Normal 0.83-4.51 [facility] Comment on above: Performed By: #### L 501.4021, L500.2500, L100.0100 ####[facility] [address] [place], [address] Absolute Neut 7.7 X10 3/uL Normal 2.0-7.7 [facility] Comment on above: Performed By: #### L 501.4021, L500.2500, L100.0100 ####[facility] [address] [place], [address] Basophils/100 WBC (Bld) 0.3 % Normal 0-1 [facility] Comment on above: Performed By: #### L 501.4021, L500.2500, L100.0100 ####[facility] [address] [place], [address] Eosinophils/100 WBC (Bld) 1.6 % Normal 0-5 [facility] Comment on above: Performed By: #### L 501.4021, L500.2500, L100.0100 ####[facility] [address] [place], [address] Erythrocyte distribution width (RBC) [Ratio] 16.3 % High 11.6-14.6 [facility] Comment on above: Performed By: #### L 501.4021, L500.2500, L100.0100 ####[facility] [address] [place], [address] Hematocrit (Bld) [Volume fraction] 34.3 % Low 37-47 [facility] Comment on above: Performed By: #### L 501.4021, L500.2500, L100.0100 ####[facility] [address] [place], [address] Hemoglobin (Bld) [Mass/Vol] 11.0 g/dL Low 12.0-15.0 [facility] Comment on above: Performed By: #### L 501.4021, L500.2500, L100.0100 ####[facility] [address] [place], [address] IG% 0.400 Normal 0.0-0.9 [facility] Comment on above: Result Comment: IG% - Immature Granulocytes (promyelocytes, myelocytes andmetamyelocytes) > 1% indicates that a LEFT SHIFT is Present. Performed By: #### L 501.4021, L500.2500, L100.0100 ####[facility] [address] [place], [address] Lymphocytes/100 WBC (Bld) 18.1 % Low 19-41 [facility] Comment on above: Performed By: #### L 501.4021, L500.2500, L100.0100 ####[facility] [address] [place], [address] MCH (RBC) [Entitic mass] 27.8 pg Normal 27.0-32.0 [facility] Comment on above: Performed By: #### L 501.4021, L500.2500, L100.0100 ####[facility] [address] [place], [address] MCHC (RBC) [Mass/Vol] 32.1 g/dL Normal 32-36 [facility] Comment on above: Performed By: #### L 501.4021, L500.2500, L100.0100 ####[facility] [address] [place], [address] MCV (RBC) [Entitic vol] 86.6 fL Normal 81-99 [facility] Comment on above: Performed By: #### L 501.4021, L500.2500, L100.0100 ####[facility] [address] [place], [address] Monocytes/100 WBC (Bld) 6.9 % Normal 0-10 [facility] Comment on above: Performed By: #### L 501.4021, L500.2500, L100.0100 ####[facility] [address] [place], [address] Neutrophils/100 WBC (Bld) 72.7 % High 47-70 [facility] Comment on above: Performed By: #### L 501.4021, L500.2500, L100.0100 ####[facility] [address] [place], [address] Nucleated RBC (Bld) [#/Vol] 0 10*3/uL Normal 0-5 [facility] Comment on above: Performed By: #### L 501.4021, L500.2500, L100.0100 ####[facility] [address] [place], [address] Platelet mean volume (Bld) [Entitic vol] 10.5 fL Normal 6.2-12.0 [facility] Comment on above: Performed By: #### L 501.4021, L500.2500, L100.0100 ####[facility] [address] [place], [address] Platelets (Bld) [#/Vol] 256 10*3/uL Normal 150-450 [facility] Comment on above: Performed By: #### L 501.4021, L500.2500, L100.0100 ####[facility] [address] [place], [address] RBC (Bld) [#/Vol] 3.96 10*6/uL Low 4.2-5.4 [facility] Comment on above: Performed By: #### L 501.4021, L500.2500, L100.0100 ####[facility] [address] [place], [address] RDW SD 50.8 fl High 35.1-43.9 [facility] Comment on above: Performed By: #### L 501.4021, L500.2500, L100.0100 ####[facility] [address] [place], [address] WBC (Bld) [#/Vol] 10.6 10*3/uL Normal 4.4-11.0 [facility] Comment on above: Performed By: #### L 501.4021, L500.2500, L100.0100 ####[facility] [address] [place], [address] Carbon dioxide, total [Moles /volume] in Central venous bloodOrdered By: Jeevan Yoder on 01-15-2025 CO2 [Moles/Vol] 25.0 mmol/L 21.0-32.0 [facility] Chest PA and Lateralon 01-15 Chest PA and Lateral Normal [facility] Chloride assayOrdered By: Kenny Yoder on 01-15-2025 Chloride [Moles/Vol] 102 mmol/L 98-108 [facility] Emergency Department Summary on 01-15-2025 Emergency Department Summary Normal [facility] Eosinophil percentageOrdered By: Jeevan Yoder on 01-15-2025 Eosinophils/100 WBC (Bld) 1.6 % 0-5 [facility] Erythrocyte distribution wid th ratioOrdered By: Jeevan Yoder on 01-15-2025 Erythrocyte distribution width (RBC) [Ratio] 16.3 % High 11.6-14.6 [facility] Erythrocyte distribution wid th standard deviationOrdered By: Jeevan Yoder on 01-15-2025 Erythrocyte distribution width (RBC) [Ratio] 50.8 fl High 35.1-43.9 [facility] Glomerular filtration rate ( GFR) estimation/1.73 sq m using serum, plasma, or whole bOrdered By: Jeevan Yoder on 01-15-2025 GFR/1.73 sq M.predicted among non-blacks MDRD (S/P/Bld) [Vol rate/Area] 63 mL/min/{1.73_m2} >60 [facility] Comment on above: mL/min/1.73m2 CKD-EP I Creatinine Equation (2020) Hematocrit Auto (Bld) [Volum e fraction]Ordered By: Jeevan Yoder on 01-15-2025 Hematocrit (Bld) [Volume fraction] 34.3 % Low 37-47 [facility] Hemoglobin measurementOrdere d By: Jeevan Yoder on 01-15-2025 Hemoglobin (Bld) [Mass/Vol] 11.0 g/dL Low 12.0-15.0 [facility] Immature granulocytes/100 WB C Auto (Bld)Ordered By: Jeevan Yoder on 01-15-2025 Immature granulocytes/100 WBC (Bld) 0.400 % 0.0-0.9 [facility] Comment on above: IG% - Immature Granu locytes (promyelocytes, myelocytes and metamyelocytes) > 1% indicates that a LEFT SHIFT is Present. L499.0042on 01-15-2025 Trop T High Sen 46 ng/L High <=14 [facility] Comment on above: Performed By: #### L 499.0042 ####[facility] [address] [place], [address] L499.0043on 01-15-2025 Trop T High Sen Normal <=14 [facility] Comment on above: Result Comment: DEP ED Performed By: #### L 499.0043 ####[facility] [address] [place], [address] L501.4021on 01-15-2025 Trop T High Sen 46 ng/L High <=14 [facility] Comment on above: Performed By: #### L 501.4021, L500.2500, L100.0100 ####[facility] [address] [place], [address] L503.7505on 01-15-2025 Natriuretic peptide B (Bld) [Mass/Vol] 4224 pg/mL High <=1800 [facility] Comment on above: Result Comment: Hear t Failure Unlikely: < 300 pg/mLHeart Failure Likely< 50 Years: > 450 pg/mL50-75 Years: > 900 pg/mL>75 Years: > 1800 pg/mL Performed By: #### L 503.7505 ####[facility] [address] [place], [address] MCV (mean corpuscular volume ) determinationOrdered By: Jeevan Yoder on 01-15-2025 MCV (RBC) [Entitic vol] 86.6 fL 81-99 [facility] Mean corpuscular hemoglobin (MCH) determinationOrdered By: Jeevan Yoder on 01-15-2025 MCH (RBC) [Entitic mass] 27.8 pg 27.0-32.0 [facility] Mean corpuscular hemoglobin concentration (MCHC) determinationOrdered By: Jeevan Yoder on 01-15-2025 MCHC (RBC) [Mass/Vol] 32.1 g/dL 32-36 [facility] Mean platelet volume determi nationOrdered By: Jeevan Yoder on 01-15-2025 Platelet mean volume (Bld) [Entitic vol] 10.5 fL 6.2-12.0 [facility] Monocyte percentageOrdered B y: Jeevan Yoder on 01-15-2025 Monocytes/100 WBC (Bld) 6.9 % 0-10 [facility] Natriuretic peptide.B prohor hayley N-Terminal [Mass/volume] in Serum or PlasmaOrdered By: Jeevan Yoder on 01-15-2025 Natriuretic peptide.B prohormone N-Terminal [Mass/Vol] 4224 pg/mL High <1800 [facility] Comment on above: Heart Failure Unlike ly: < 300 pg/mLHeart Failure Likely< 50 Years: > 450 pg/mL50-75 Years: > 900 pg/mL>75 Years: > 1800 pg/mL Neutrophil percentageOrdered By: Jeevan Yoder on 01-15-2025 Neutrophils/100 WBC (Bld) 72.7 % High 47-70 [facility] Nucleated red blood cell per centageOrdered By: Jeevan Yoder on 01-15-2025 Nucleated RBC/100 WBC (Bld) [Ratio] 0 % 0-5 [facility] Platelet countOrdered By: Kenny Yoder on 01-15-2025 Platelets (Bld) [#/Vol] 256 10*3/uL 150-450 [facility] Potassium measurement (mass/ volume)Ordered By: Jeevan Yoder on 01-15-2025 Potassium (Unsp spec) [Mass/Vol] 3.7 mmol/L 3.3-5.1 [facility] RBC Auto (Bld) [#/Vol]Ordere d By: Jeevan Yoder on 01-15-2025 RBC (Bld) [#/Vol] 3.96 10*6/uL Low 4.2-5.4 [facility] Serum creatinine measurement (mass/volume)Ordered By: Jeevan Yoder on 01-15-2025 Creatinine [Mass/Vol] 0.92 mg/dL 0.70-1.20 [facility] Serum glucose measurement (m ass/volume)Ordered By: Jeevan Yoder on 01-15-2025 Glucose [Mass/Vol] 144 mg/dL High 70-99 [facility] Serum or plasma calcium melanie urement (mass/volume)Ordered By: Jeevan Yoder on 01-15-2025 Calcium [Mass/Vol] 9.6 mg/dL 7.6-11.0 [facility] Serum or plasma urea nitroge n measurement (mass/volume)Ordered By: Jeevan Yoder on 01-15-2025 Urea nitrogen [Mass/Vol] 15 mg/dL 4-19 [facility] Sodium levelOrdered By: Marcelino Yoder on 01-15-2025 Sodium [Moles/Vol] 138 mmol/L 133-145 [facility] Troponin T.cardiac [Mass/vol ume] in Serum or Plasma by High sensitivity methodOrdered By: Jeevan Yoder on 01-15-2025 Troponin T.cardiac High sensitivity method [Mass/Vol] 46 ng/L High <14 [facility] Troponin T.cardiac High sensitivity method [Mass/Vol] 46 ng/L High <14 [facility] White blood cell (WBC) count Ordered By: Jeevan Yoder on 01-15-2025 WBC (Bld) [#/Vol] 10.6 10*3/uL 4.4-11.0 [facility] 12 Lead EKGon 01-07-2025 12 Lead EKG Normal [facility] Absolute lymphocyte countOrd ered By: Ethan Suarez on 01-07-2025 Lymphocytes Auto (Unsp spec) [#/Vol] 2.89 10*3/uL 0.83-4.51 [facility] Absolute neutrophil countOrd ered By: Ethan Suarez on 01-07-2025 Neutrophils (Bld) [#/Vol] 5.3 10*3/uL 2.0-7.7 [facility] Anion gap in Serum or Plasma Ordered By: Ethan Suarez on 01-07-2025 Anion gap [Moles/Vol] 11 mmol/L 5- [facility] Automated lymphocyte count a s percentage of total leukocytesOrdered By: Ethan Suarez on 01-07-2025 Lymphocytes/100 WBC Auto (Unsp spec) 31.8 % 19-41 [facility] BUN/creatinine ratioOrdered By: Ethan Suarez on 01-07-2025 Urea nitrogen/Creatinine [Mass ratio] 15.5 mg/mg 10-20 [facility] Basic Metabolic Profile (BMP )on 01-07-2025 BUN/CRE 15.5 RATIO Normal - [facility] Comment on above: Performed By: #### L 500.2500, L100.0100 ####[facility] [address] [place], [address] Calcium [Mass/Vol] 10.3 mg/dL Normal 7.6-11.0 [facility] Comment on above: Performed By: #### L 500.2500, L100.0100 ####[facility] [address] [place], [address] Chloride [Moles/Vol] 99 mmol/L Normal 98-108 [facility] Comment on above: Performed By: #### L 500.2500, L100.0100 ####[facility] [address] [place], [address] CO2 [Moles/Vol] 22.5 mmol/L Normal 21.0-32.0 [facility] Comment on above: Performed By: #### L 500.2500, L100.0100 ####[facility] [address] [place], [address] Creatinine [Mass/Vol] 0.90 mg/dL Normal 0.70-1.20 [facility] Comment on above: Performed By: #### L 500.2500, L100.0100 ####[facility] [address] [place], [address] ECRCL 49.31 ml/min Low 50-250 [facility] Comment on above: Performed By: #### L 500.2500, L100.0100 ####[facility] [address] [place], [address] GAP 11 Normal 5-15 [facility] Comment on above: Performed By: #### L 500.2500, L100.0100 ####[facility] [address] [place], [address] GFR/1.73 sq M.predicted among non-blacks MDRD (S/P/Bld) [Vol rate/Area] 64 mL/min/{1.73_m2} Normal >60 [facility] Comment on above: Result Comment: mL/m in/1.73m2 CKD-EPI Creatinine Equation (2020) Performed By: #### L 500.2500, L100.0100 ####[facility] [address] [place], [address] Glucose [Mass/Vol] 321 mg/dL High 70-99 [facility] Comment on above: Performed By: #### L 500.2500, L100.0100 ####[facility] [address] [place], [address] Potassium [Moles/Vol] 3.8 mmol/L Normal 3.3-5.1 [facility] Comment on above: Result Comment: Hemo lysis present, Results??could be affected.?? Performed By: #### L 500.2500, L100.0100 ####[facility] [address] [place], [address] Sodium [Moles/Vol] 133 mmol/L Normal 133-145 [facility] Comment on above: Performed By: #### L 500.2500, L100.0100 ####[facility] [address] [place], [address] Urea nitrogen [Mass/Vol] 14 mg/dL Normal 4-19 [facility] Comment on above: Performed By: #### L 500.2500, L100.0100 ####[facility] [address] [place], [address] Basophil percentageOrdered B y: Ethan Le on 01-07-2025 Basophils/100 WBC (Bld) 0.5 % 0-1 [facility] Bedside Glucoseon 05-10-2025 FINGERSTICK GLU 316 mg/dL High 74-106 [facility] Comment on above: Result Comment: KATARINA GARY OF PATIENT CARE PER NURSING PROTOCOL Performed By: #### L 501.080 ####[facility] [address] [place], [address] CBC W/Diff, Automatedon 05-1 0-2025 Absolute Lymph 2.89 X10 3/uL Normal 0.83-4.51 [facility] Comment on above: Performed By: #### L 500.2500, L100.0100 ####[facility] [address] [place], [address] Absolute Neut 5.3 X10 3/uL Normal 2.0-7.7 [facility] Comment on above: Performed By: #### L 500.2500, L100.0100 ####[facility] [address] [place], [address] Basophils/100 WBC (Bld) 0.5 % Normal 0-1 [facility] Comment on above: Performed By: #### L 500.2500, L100.0100 ####[facility] [address] [place], [address] Eosinophils/100 WBC (Bld) 1.9 % Normal 0-5 [facility] Comment on above: Performed By: #### L 500.2500, L100.0100 ####[facility] [address] [place], [address] Erythrocyte distribution width (RBC) [Ratio] 15.7 % High 11.6-14.6 [facility] Comment on above: Performed By: #### L 500.2500, L100.0100 ####[facility] [address] [place], [address] Hematocrit (Bld) [Volume fraction] 34.0 % Low 37-47 [facility] Comment on above: Performed By: #### L 500.2500, L100.0100 ####[facility] [address] [place], [address] Hemoglobin (Bld) [Mass/Vol] 10.5 g/dL Low 12.0-15.0 [facility] Comment on above: Performed By: #### L 500.2500, L100.0100 ####[facility] [address] [place], [address] IG% 0.200 Normal 0.0-0.9 [facility] Comment on above: Result Comment: IG% - Immature Granulocytes (promyelocytes, myelocytes andmetamyelocytes) > 1% indicates that a LEFT SHIFT is Present. Performed By: #### L 500.2500, L100.0100 ####[facility] [address] [place], [address] Lymphocytes/100 WBC (Bld) 31.8 % Normal 19-41 [facility] Comment on above: Performed By: #### L 500.2500, L100.0100 ####[facility] [address] [place], [address] MCH (RBC) [Entitic mass] 26.9 pg Low 27.0-32.0 [facility] Comment on above: Performed By: #### L 500.2500, L100.0100 ####[facility] [address] [place], [address] MCHC (RBC) [Mass/Vol] 30.9 g/dL Low 32-36 [facility] Comment on above: Performed By: #### L 500.2500, L100.0100 ####[facility] [address] [place], [address] MCV (RBC) [Entitic vol] 87.0 fL Normal 81-99 [facility] Comment on above: Performed By: #### L 500.2500, L100.0100 ####[facility] [address] [place], [address] Monocytes/100 WBC (Bld) 7.6 % Normal 0-10 [facility] Comment on above: Performed By: #### L 500.2500, L100.0100 ####[facility] [address] [place], [address] Neutrophils/100 WBC (Bld) 58.0 % Normal 47-70 [facility] Comment on above: Performed By: #### L 500.2500, L100.0100 ####[facility] [address] [place], [address] Nucleated RBC (Bld) [#/Vol] 0 10*3/uL Normal 0-5 [facility] Comment on above: Performed By: #### L 500.2500, L100.0100 ####[facility] [address] [place], [address] Platelet mean volume (Bld) [Entitic vol] 11.1 fL Normal 6.2-12.0 [facility] Comment on above: Performed By: #### L 500.2500, L100.0100 ####[facility] [address] [place], [address] Platelets (Bld) [#/Vol] 237 10*3/uL Normal 150-450 [facility] Comment on above: Performed By: #### L 500.2500, L100.0100 ####[facility] [address] [place], [address] RBC (Bld) [#/Vol] 3.91 10*6/uL Low 4.2-5.4 [facility] Comment on above: Performed By: #### L 500.2500, L100.0100 ####[facility] [address] [place], [address] RDW SD 49.4 fl High 35.1-43.9 [facility] Comment on above: Performed By: #### L 500.2500, L100.0100 ####[facility] [address] [place], [address] WBC (Bld) [#/Vol] 9.1 10*3/uL Normal 4.4-11.0 [facility] Comment on above: Performed By: #### L 500.2500, L100.0100 ####[facility] [address] [place], [address] Carbon dioxide, total [Moles /volume] in Central venous bloodOrdered By: Ethan Suarez on 01-07-2025 CO2 [Moles/Vol] 22.5 mmol/L 21.0-32.0 [facility] Chest PA and Lateralon 01-07 Chest PA and Lateral Normal [facility] Chloride assayOrdered By: Albaro Suarez on 01-07-2025 Chloride [Moles/Vol] 99 mmol/L 98-108 [facility] Emergency Department Summary on 01-07-2025 Emergency Department Summary Normal [facility] Eosinophil percentageOrdered By: Ethan Suarez on 01-07-2025 Eosinophils/100 WBC (Bld) 1.9 % 0-5 [facility] Erythrocyte distribution wid th ratioOrdered By: Ethan Suarez on 01-07-2025 Erythrocyte distribution width (RBC) [Ratio] 15.7 % High 11.6-14.6 [facility] Erythrocyte distribution wid th standard deviationOrdered By: Ethan Suarez on 01-07-2025 Erythrocyte distribution width (RBC) [Ratio] 49.4 fl High 35.1-43.9 [facility] Glomerular filtration rate ( GFR) estimation/1.73 sq m using serum, plasma, or whole bOrdered By: Ethan Suarez on 01-07-2025 GFR/1.73 sq M.predicted among non-blacks MDRD (S/P/Bld) [Vol rate/Area] 64 mL/min/{1.73_m2} >60 [facility] Comment on above: mL/min/1.73m2 CKD-EP I Creatinine Equation (2020) [facility] deOrdered By: Ethan Suarez on 01-07-2025 Glucose [Mass/Vol] 316 mg/dL High 74-106 [facility] Comment on above: MANAGEMENT OF PATIEN T CARE PER NURSING PROTOCOL Hematocrit Auto (Bld) [Volum e fraction]Ordered By: Ethan Suarez on 01-07-2025 Hematocrit (Bld) [Volume fraction] 34.0 % Low 37-47 [facility] Hemoglobin measurementOrdere d By: Ethan Suarez on 01-07-2025 Hemoglobin (Bld) [Mass/Vol] 10.5 g/dL Low 12.0-15.0 [facility] Immature granulocytes/100 WB C Auto (Bld)Ordered By: Ethan Suarez on 01-07-2025 Immature granulocytes/100 WBC (Bld) 0.200 % 0.0-0.9 [facility] Comment on above: IG% - Immature Granu locytes (promyelocytes, myelocytes and metamyelocytes) > 1% indicates that a LEFT SHIFT is Present. Influenza virus A and B and SARS-CoV-2 (COVID-19) and Respiratory syncytial virus RNAOrdered By: Ethan Suarez on 01-07-2025 SARS-CoV-2 (COVID-19) RNA BEBETO+probe Ql (Unsp spec) [facility] M100.678on 01-07-2025 M100.678 SARS-CoV-2 (COVID 19 ) Negative INFLUENZA A Negative INFLUENZA B Negative RSV PCR Negative Normal [facility] Comment on above: Performed By: #### M 100.678 ####[facility] [address] [place], [place], [id number] MCV (mean corpuscular volume ) determinationOrdered By: Ethan Suarez on 01-07-2025 MCV (RBC) [Entitic vol] 87.0 fL 81-99 [facility] Mean corpuscular hemoglobin (MCH) determinationOrdered By: Ethan Suarez on 01-07-2025 MCH (RBC) [Entitic mass] 26.9 pg Low 27.0-32.0 [facility] Mean corpuscular hemoglobin concentration (MCHC) determinationOrdered By: Ethan Suarez on 01-07-2025 MCHC (RBC) [Mass/Vol] 30.9 g/dL Low 32-36 [facility] Mean platelet volume determi nationOrdered By: Ethan Suarez on 01-07-2025 Platelet mean volume (Bld) [Entitic vol] 11.1 fL 6.2-12.0 [facility] Monocyte percentageOrdered B y: Ethan Suarez on 01-07-2025 Monocytes/100 WBC (Bld) 7.6 % 0-10 [facility] Neutrophil percentageOrdered By: Ethan Suarez on 01-07-2025 Neutrophils/100 WBC (Bld) 58.0 % 47-70 [facility] Nucleated red blood cell per centageOrdered By: Ethan Suarez on 01-07-2025 Nucleated RBC/100 WBC (Bld) [Ratio] 0 % 0-5 [facility] Platelet countOrdered By: Albaro Suarez on 01-07-2025 Platelets (Bld) [#/Vol] 237 10*3/uL 150-450 [facility] Potassium measurement (mass/ volume)Ordered By: Ethan Suarez on 01-07-2025 Potassium (Unsp spec) [Mass/Vol] 3.8 mmol/L 3.3-5.1 [facility] Comment on above: Hemolysis present, R esults could be affected. RBC Auto (Bld) [#/Vol]Ordere d By: Ethan Suarez on 01-07-2025 RBC (Bld) [#/Vol] 3.91 10*6/uL Low 4.2-5.4 [facility] Serum creatinine measurement (mass/volume)Ordered By: Ethan Suarez on 01-07-2025 Creatinine [Mass/Vol] 0.90 mg/dL 0.70-1.20 [facility] Serum glucose measurement (m ass/volume)Ordered By: Ethan Suarez on 01-07-2025 Glucose [Mass/Vol] 321 mg/dL High 70-99 [facility] Serum or plasma calcium melanie urement (mass/volume)Ordered By: Ethan Suarez on 01-07-2025 Calcium [Mass/Vol] 10.3 mg/dL 7.6-11.0 [facility] Serum or plasma urea nitroge n measurement (mass/volume)Ordered By: Ethan Suarez on 01-07-2025 Urea nitrogen [Mass/Vol] 14 mg/dL 4-19 [facility] Sodium levelOrdered By: Ethan Suarez on 01-07-2025 Sodium [Moles/Vol] 133 mmol/L 133-145 [facility] White blood cell (WBC) count Ordered By: Ethan Suarez on 01-07-2025 WBC (Bld) [#/Vol] 9.1 10*3/uL 4.4-11.0 [facility] Inital Evaluation (1) - PTon 10-13-2024 Inital Evaluation (1) - PT Normal [facility] Albumin to globulin ratioOrd ered By: Ramone Smiley on 09-27-2024 Albumin/Globulin [Mass ratio] 0.6 {ratio} Low 0.9-2.4 [facility] Bilirubin, totalOrdered By: Ramone Smiley on 09-27-2024 Bilirubin [Mass/Vol] 0.20 mg/dL 0.20-1.00 [facility] Comment on above: For patients on eltr ombopag therapy, use of Dimension Otis TBIL is not recommended. Blood urea nitrogen (BUN)/cr eatinine ratioOrdered By: Ramone Smiley on 09-27-2024 Urea nitrogen/Creatinine [Mass ratio] 12.7 mg/mg 10-20 [facility] CBC-Complete Blood Cnt No Di ffon 09-27-2024 Erythrocyte distribution width (RBC) [Ratio] 15.9 % High 11.6-14.6 [facility] Comment on above: Order Comment: Order Date: 09/27/24Order Info: [id number] - CBC Performed By: #### L 500.4050, L100.0500 ####[facility] [address] [place], [address] Hematocrit (Bld) [Volume fraction] 35.7 % Low 37-47 [facility] Comment on above: Order Comment: Order Date: 09/27/24Order Info: [id number] - CBC Performed By: #### L 500.4050, L100.0500 ####[facility] [address] [place], [address] Hemoglobin (Bld) [Mass/Vol] 11.0 g/dL Low 12.0-15.0 [facility] Comment on above: Order Comment: Order Date: 09/27/24Order Info: [id number] - CBC Performed By: #### L 500.4050, L100.0500 ####[facility] [address] [place], [address] MCH (RBC) [Entitic mass] 25.8 pg Low 27.0-32.0 [facility] Comment on above: Order Comment: Order Date: 09/27/24Order Info: [id number] - CBC Performed By: #### L 500.4050, L100.0500 ####[facility] [address] [place], [address] MCHC (RBC) [Mass/Vol] 30.8 g/dL Low 32-36 [facility] Comment on above: Order Comment: Order Date: 09/27/24Order Info: [id number] - CBC Performed By: #### L 500.4050, L100.0500 ####[facility] [address] [place], [address] MCV (RBC) [Entitic vol] 83.6 fL Normal 81-99 [facility] Comment on above: Order Comment: Order Date: 09/27/24Order Info: [id number] - CBC Performed By: #### L 500.4050, L100.0500 ####[facility] [address] [place], [address] Platelet mean volume (Bld) [Entitic vol] 11.3 fL Normal 6.2-12.0 [facility] Comment on above: Order Comment: Order Date: 09/27/24Order Info: [id number] - CBC Performed By: #### L 500.4050, L100.0500 ####[facility] [address] [place], [address] Platelets (Bld) [#/Vol] 287 10*3/uL Normal 150-450 [facility] Comment on above: Order Comment: Order Date: 09/27/24Order Info: [id number] - CBC Performed By: #### L 500.4050, L100.0500 ####[facility] [address] [place], [address] RBC (Bld) [#/Vol] 4.27 10*6/uL Normal 4.2-5.4 [facility] Comment on above: Order Comment: Order Date: 09/27/24Order Info: [id number] - CBC Performed By: #### L 500.4050, L100.0500 ####[facility] [address] [place], [address] RDW SD 47.4 fl High 35.1-43.9 [facility] Comment on above: Order Comment: Order Date: 09/27/24Order Info: [id number] - CBC Performed By: #### L 500.4050, L100.0500 ####[facility] [address] [place], [address] WBC (Bld) [#/Vol] 8.6 10*3/uL Normal 4.4-11.0 [facility] Comment on above: Order Comment: Order Date: 09/27/24Order Info: [id number] - CBC Performed By: #### L 500.4050, L100.0500 ####[facility] [address] [place], [address] Carbon dioxide measurementOr dered By: Ramone Smiley on 09-27-2024 CO2 [Moles/Vol] 28.0 mmol/L 21.0-32.0 [facility] Chloride measurementOrdered By: Ramone Smiley on 09-27-2024 Chloride [Moles/Vol] 101 mmol/L 98-107 [facility] Comprehensive Metabolic Prof ilon 09-27-2024 Albumin [Mass/Vol] 3.0 g/dL Low 3.2-5.0 [facility] Comment on above: Order Comment: Order Date: 09/27/24Order Info: [id number] - CMPOrder Info: [id number] - CRE Performed By: #### L 500.4050, L100.0500 ####[facility] [address] [place], [address] Albumin/Globulin [Mass ratio] 0.6 {ratio} Low 0.9-2.4 [facility] Comment on above: Order Comment: Order Date: 09/27/24Order Info: [id number] - CMPOrder Info: [id number] - CRE Performed By: #### L 500.4050, L100.0500 ####[facility] [address] [place], [address] ALK P 145 U/L High 45-117 [facility] Comment on above: Order Comment: Order Date: 09/27/24Order Info: 07-1 - CMPOrder Info: [id number] - CRE Performed By: #### L 500.4050, L100.0500 ####[facility] [address] [place], [address] ALT [Catalytic activity/Vol] 16 U/L Normal 13-56 [facility] Comment on above: Order Comment: Order Date: 09/27/24Order Info: [id number] - CMPOrder Info: [id number] - CRE Performed By: #### L 500.4050, L100.0500 ####[facility] [address] [place], [address] AST [Catalytic activity/Vol] 16 U/L Normal 15-37 [facility] Comment on above: Order Comment: Order Date: 09/27/24Order Info: [id number] - CMPOrder Info: [id number] - CRE Performed By: #### L 500.4050, L100.0500 ####[facility] [address] [place], [address] Bilirubin [Mass/Vol] 0.20 mg/dL Normal 0.20-1.00 [facility] Comment on above: Order Comment: Order Date: 09/27/24Order Info: [id number] - CMPOrder Info: [id number] - CRE Result Comment: For patients on eltrombopag therapy, use of Dimension Otis TBIL is not recommended. Performed By: #### L 500.4050, L100.0500 ####[facility] [address] [place], [address] BUN/CRE 12.7 RATIO Normal 10-20 [facility] Comment on above: Order Comment: Order Date: 09/27/24Order Info: [id number] - CMPOrder Info: [id number] - CRE Performed By: #### L 500.4050, L100.0500 ####[facility] [address] [place], [address] CA,Total 11.0 mg/dL High 8.5-10.1 [facility] Comment on above: Order Comment: Order Date: 09/27/24Order Info: [id number]- - CMPOrder Info: [id number] - CRE Performed By: #### L 500.4050, L100.0500 ####[facility] [address] [place], [address] Chloride [Moles/Vol] 101 mmol/L Normal 98-107 [facility] Comment on above: Order Comment: Order Date: 09/27/24Order Info: [id number]- - CMPOrder Info: [id number] - CRE Performed By: #### L 500.4050, L100.0500 ####[facility] [address] [place], [address] CO2 [Moles/Vol] 28.0 mmol/L Normal 21.0-32.0 [facility] Comment on above: Order Comment: Order Date: 09/27/24Order Info: [id number] - CMPOrder Info: [id number] - CRE Performed By: #### L 500.4050, L100.0500 ####[facility] [address] [place], [address] Creatinine [Mass/Vol] 0.86 mg/dL Normal 0.55-1.02 [facility] Comment on above: Order Comment: Order Date: 09/27/24Order Info: [id number] - CMPOrder Info: [id number] - CRE Result Comment: The validity of the calculated GFR GFRAA in patients over70 years has not been determined. Clinical correlation isessential. Performed By: #### L 500.4050, L100.0500 ####[facility] [address] [place], [address] EST GFR - AA 81 mL/min Normal >60 [facility] Comment on above: Order Comment: Order Date: 09/27/24Order Info: [id number] - CMPOrder Info: [id number] - CRE Result Comment: Afri can Cypriot GFR Calc Performed By: #### L 500.4050, L100.0500 ####[facility] [address] [place], [address] GAP 8 Normal 5-15 [facility] Comment on above: Order Comment: Order Date: 09/27/24Order Info: [id number] - CMPOrder Info: [id number] - CRE Performed By: #### L 500.4050, L100.0500 ####[facility] [address] [place], [address] GFR/1.73 sq M.predicted among non-blacks MDRD (S/P/Bld) [Vol rate/Area] 67 mL/min/{1.73_m2} Normal >60 [facility] Comment on above: Order Comment: Order Date: 09/27/24Order Info: [id number] - CMPOrder Info: [id number] - CRE Result Comment: Non- GFR Calc Performed By: #### L 500.4050, L100.0500 ####[facility] [address] [place], [address] Globulin (S) [Mass/Vol] 5.0 g/dL High 2.2-4.2 [facility] Comment on above: Order Comment: Order Date: 09/27/24Order Info: [id number] - CMPOrder Info: [id number] - CRE Performed By: #### L 500.4050, L100.0500 ####[facility] [address] [place], [address] Glucose [Mass/Vol] 144 mg/dL High 74-106 [facility] Comment on above: Order Comment: Order Date: 09/27/24Order Info: [id number] - CMPOrder Info: [id number] - CRE Result Comment: Fast ing Glucose result greater than or equal to 126 mg/dLsuggests DIABETES MELLITUS per A.D.A. criteria. Performed By: #### L 500.4050, L100.0500 ####[facility] [address] [place], [address] Potassium [Moles/Vol] 3.5 mmol/L Normal 3.5-5.1 [facility] Comment on above: Order Comment: Order Date: 09/27/24Order Info: [id number]- - CMPOrder Info: [id number]- - CRE Performed By: #### L 500.4050, L100.0500 ####[facility] [address] [place], [address] Sodium [Moles/Vol] 138 mmol/L Normal 136-145 [facility] Comment on above: Order Comment: Order Date: 09/27/24Order Info: [id number] - CMPOrder Info: [id number]- - CRE Performed By: #### L 500.4050, L100.0500 ####[facility] [address] [place], [address] T PROT 8.0 g/dL Normal 6.4-8.2 [facility] Comment on above: Order Comment: Order Date: 09/27/24Order Info: [id number] - CMPOrder Info: [id number]- - CRE Performed By: #### L 500.4050, L100.0500 ####[facility] [address] [place], [place], [address] Urea nitrogen [Mass/Vol] 11 mg/dL Normal 7-18 [facility] Comment on above: Order Comment: Order Date: 09/27/24Order Info: [id number] - CMPOrder Info: [id number] - CRE Performed By: #### L 500.4050, L100.0500 ####[facility] [address] [place], [address] Erythrocyte distribution wid th ratioOrdered By: Ramone Smiely on 09-27-2024 Erythrocyte distribution width (RBC) [Ratio] 15.9 % High 11.6-14.6 [facility] Erythrocyte distribution wid th standard deviationOrdered By: Ramone Smiley on 09-27-2024 Erythrocyte distribution width (RBC) [Ratio] 47.4 fl High 35.1-43.9 [facility] Glomerular filtration rate ( GFR) estimationOrdered By: Ramone Smiley on 09-27-2024 GFR/1.73 sq M.predicted among non-blacks MDRD (S/P/Bld) [Vol rate/Area] 67 mL/min/{1.73_m2} >60 [facility] Comment on above: Non- GFR Calc Glucose measurementOrdered B y: Ramone Smiley on 09-27-2024 Glucose [Mass/Vol] 144 mg/dL High 74-106 [facility] Comment on above: Fasting Glucose resu lt greater than or equal to 126 mg/dL suggests DIABETES MELLITUS per A.D.A. criteria. Hematocrit Auto (Bld) [Volum e fraction]Ordered By: Ramone Smiley on 09-27-2024 Hematocrit (Bld) [Volume fraction] 35.7 % Low 37-47 [facility] Hemoglobin measurementOrdere d By: Ramone Smiley on 09-27-2024 Hemoglobin (Bld) [Mass/Vol] 11.0 g/dL Low 12.0-15.0 [facility] Laboratory - Chemistry and C hemistry - challengeOrdered By: Ramone Smiley on 09-27-2024 AST [Catalytic activity/Vol] 16 U/L 15-37 [facility] MCV (mean corpuscular volume ) determinationOrdered By: Ramone Smiley on 09-27-2024 MCV (RBC) [Entitic vol] 83.6 fL 81-99 [facility] Mean corpuscular hemoglobin (MCH) determinationOrdered By: Ramone Smiley on 09-27-2024 MCH (RBC) [Entitic mass] 25.8 pg Low 27.0-32.0 [facility] Mean corpuscular hemoglobin concentration (MCHC) determinationOrdered By: Ramone Smiley on 09-27-2024 MCHC (RBC) [Mass/Vol] 30.8 g/dL Low 32-36 [facility] Mean platelet volume determi nationOrdered By: Ramone Smiley on 09-27-2024 Platelet mean volume (Bld) [Entitic vol] 11.3 fL 6.2-12.0 [facility] No Panel InformationOrdered By: Ramone Smiley on 09-27-2024 16 U/L 15-37 [facility] Platelet countOrdered By: Richar Smiley on 09-27-2024 Platelets (Bld) [#/Vol] 287 10*3/uL 150-450 [facility] Potassium measurementOrdered By: Ramone Smiley on 09-27-2024 Potassium [Moles/Vol] 3.5 mmol/L 3.5-5.1 [facility] RBC Auto (Bld) [#/Vol]Ordere d By: Ramone Smiley on 09-27-2024 RBC (Bld) [#/Vol] 4.27 10*6/uL 4.2-5.4 [facility] Serum anion gap measurementO rdered By: Ramone Smiley on 09-27-2024 Anion gap [Moles/Vol] 8 mmol/L 5-15 [facility] Serum globulin measurementOr dered By: Ramone Smiley on 09-27-2024 Globulin (S) [Mass/Vol] 5.0 g/dL High 2.2-4.2 [facility] Serum or plasma alanine kelley otransferase (ALT) measurementOrdered By: Ramone Smiley on 09-27-2024 ALT [Catalytic activity/Vol] 16 U/L 13-56 [facility] Serum or plasma albumin melanie urement (mass/volume)Ordered By: Ramone Smiley on 09-27-2024 Albumin [Mass/Vol] 3.0 g/dL Low 3.2-5.0 [facility] Serum or plasma alkaline lissa sphatase measurementOrdered By: Ramone Smiley on 09-27-2024 ALP [Catalytic activity/Vol] 145 U/L High 45-117 [facility] Serum or plasma calcium melanie urement (mass/volume)Ordered By: Ramone Smiley on 09-27-2024 Calcium [Mass/Vol] 11.0 mg/dL High 8.5-10.1 [facility] Serum or plasma creatinine m easurement (mass/volume)Ordered By: Ramone Smiley on 09-27-2024 Creatinine [Mass/Vol] 0.86 mg/dL 0.55-1.02 [facility] Comment on above: The validity of the calculated GFR & GFRAA in patients over 70 years has not been determined. Clinical correlation is essential. Serum or plasma urea nitroge n measurement (mass/volume)Ordered By: Ramone Smiley on 09-27-2024 Urea nitrogen [Mass/Vol] 11 mg/dL 7-18 [facility] Sodium levelOrdered By: Ramone Smiley on 09-27-2024 Sodium [Moles/Vol] 138 mmol/L 136-145 [facility] Total proteinOrdered By: Lilliam Smiley on 09-27-2024 Protein [Mass/Vol] 8.0 g/dL 6.4-8.2 [facility] White blood cell (WBC) count Ordered By: Ramone Smiley on 09-27-2024 WBC (Bld) [#/Vol] 8.6 10*3/uL 4.4-11.0 [facility] Kidney and Bladderon 024 Kidney and Bladder Normal [facility] BNP,B-Type NATRIURETIC PEPTI Ishaan 06-19-2024 Natriuretic peptide B (Bld) [Mass/Vol] 81.6 pg/mL Normal 0-100 [facility] Comment on above: Performed By: #### L 500.2500, L503.6620, L100.0100 ####[facility] [address] [place], [place], [id number] Basic Metabolic Profile (BMP )on 06-19-2024 BUN/CRE 9.3 RATIO Low 10-20 [facility] Comment on above: Performed By: #### L 500.2500, L503.6620, L100.0100 ####[facility] [address] [place], [address] CA,Total 11.0 mg/dL High 8.5-10.1 [facility] Comment on above: Performed By: #### L 500.2500, L503.6620, L100.0100 ####[facility] [address] [place], [address] Chloride [Moles/Vol] 104 mmol/L Normal 98-107 [facility] Comment on above: Performed By: #### L 500.2500, L503.6620, L100.0100 ####[facility] [address] [place], [address] CO2 [Moles/Vol] 26.0 mmol/L Normal 21.0-32.0 [facility] Comment on above: Performed By: #### L 500.2500, L503.6620, L100.0100 ####[facility] [address] [place], [address] Creatinine [Mass/Vol] 1.08 mg/dL High 0.55-1.02 [facility] Comment on above: Result Comment: The validity of the calculated GFR GFRAA in patients over70 years has not been determined. Clinical correlation isessential. Performed By: #### L 500.2500, L503.6620, L100.0100 ####[facility] [address], [address] EST GFR - AA 63 mL/min Normal >60 [facility] Comment on above: Result Comment: Afri can Cypriot GFR Calc Performed By: #### L 500.2500, L503.6620, L100.0100 ####[facility] [address] [place], [address] GAP 6 Normal 5-15 [facility] Comment on above: Performed By: #### L 500.2500, L503.6620, L100.0100 ####[facility] [address] [place], [address] GFR/1.73 sq M.predicted among non-blacks MDRD (S/P/Bld) [Vol rate/Area] 52 mL/min/{1.73_m2} Low >60 [facility] Comment on above: Result Comment: Non- GFR Calc Performed By: #### L 500.2500, L503.6620, L100.0100 ####[facility] [address] [place], [address] Glucose [Mass/Vol] 263 mg/dL High 74-106 [facility] Comment on above: Result Comment: Gluc ose result greater than or equal to 200 mg/dLsuggests DIABETES MELLITUS per A.D.A. criteria. Performed By: #### L 500.2500, L503.6620, L100.0100 ####[facility] [address] [place], [address] Potassium [Moles/Vol] 4.4 mmol/L Normal 3.5-5.1 [facility] Comment on above: Performed By: #### L 500.2500, L503.6620, L100.0100 ####[facility] [address] [place], [address] Sodium [Moles/Vol] 137 mmol/L Normal 136-145 [facility] Comment on above: Performed By: #### L 500.2500, L503.6620, L100.0100 ####[facility] [address] [place], [address] Urea nitrogen [Mass/Vol] 10 mg/dL Normal 7-18 [facility] Comment on above: Performed By: #### L 500.2500, L503.6620, L100.0100 ####[facility] [address] [place], [address] CBC W/Diff, Automatedon 10-2 0-2024 Absolute Lymph 2.32 X10 3/uL Normal 0.83-4.51 [facility] Comment on above: Performed By: #### L 500.2500, L503.6620, L100.0100 ####[facility] [address] [place], [address] Absolute Neut 4.7 X10 3/uL Normal 2.0-7.7 [facility] Comment on above: Performed By: #### L 500.2500, L503.6620, L100.0100 ####[facility] [address] [place], [address] Basophils/100 WBC (Bld) 0.5 % Normal 0-1 [facility] Comment on above: Performed By: #### L 500.2500, L503.6620, L100.0100 ####[facility] [address] [place], [address] Eosinophils/100 WBC (Bld) 8.7 % High 0-5 [facility] Comment on above: Performed By: #### L 500.2500, L503.6620, L100.0100 ####[facility] [address] [place], [address] Erythrocyte distribution width (RBC) [Ratio] 16.6 % High 11.6-14.6 [facility] Comment on above: Performed By: #### L 500.2500, L503.6620, L100.0100 ####[facility] [address] [place], [address] Hematocrit (Bld) [Volume fraction] 36.6 % Low 37-47 [facility] Comment on above: Performed By: #### L 500.2500, L503.6620, L100.0100 ####[facility] [address] [place], [address] Hemoglobin (Bld) [Mass/Vol] 11.2 g/dL Low 12.0-15.0 [facility] Comment on above: Performed By: #### L 500.2500, L503.6620, L100.0100 ####[facility] [address] [place], [address] IG% 0.200 Normal 0.0-0.9 [facility] Comment on above: Result Comment: IG% - Immature Granulocytes (promyelocytes, myelocytes andmetamyelocytes) > 1% indicates that a LEFT SHIFT is Present. Performed By: #### L 500.2500, L503.6620, L100.0100 ####[facility] [address] [place], [address] Lymphocytes/100 WBC (Bld) 27.7 % Normal 19-41 [facility] Comment on above: Performed By: #### L 500.2500, L503.6620, L100.0100 ####[facility] [address] [place], [address] MCH (RBC) [Entitic mass] 25.6 pg Low 27.0-32.0 [facility] Comment on above: Performed By: #### L 500.2500, L503.6620, L100.0100 ####[facility] [address] [place], [address] MCHC (RBC) [Mass/Vol] 30.6 g/dL Low 32-36 [facility] Comment on above: Performed By: #### L 500.2500, L503.6620, L100.0100 ####[facility] [address] [place], [address] MCV (RBC) [Entitic vol] 83.8 fL Normal 81-99 [facility] Comment on above: Performed By: #### L 500.2500, L503.6620, L100.0100 ####[facility] [address] [place], [address] Monocytes/100 WBC (Bld) 6.7 % Normal 0-10 [facility] Comment on above: Performed By: #### L 500.2500, L503.6620, L100.0100 ####[facility] [address] [place], [address] Neutrophils/100 WBC (Bld) 56.2 % Normal 47-70 [facility] Comment on above: Performed By: #### L 500.2500, L503.6620, L100.0100 ####[facility] [address] [place], [address] Nucleated RBC (Bld) [#/Vol] 0 10*3/uL Normal 0-5 [facility] Comment on above: Performed By: #### L 500.2500, L503.6620, L100.0100 ####[facility] [address] [place], [address] Platelet mean volume (Bld) [Entitic vol] 10.4 fL Normal 6.2-12.0 [facility] Comment on above: Performed By: #### L 500.2500, L503.6620, L100.0100 ####[facility] [address] [place], [address] Platelets (Bld) [#/Vol] 234 10*3/uL Normal 150-450 [facility] Comment on above: Performed By: #### L 500.2500, L503.6620, L100.0100 ####[facility] [address] [place], [address] RBC (Bld) [#/Vol] 4.37 10*6/uL Normal 4.2-5.4 [facility] Comment on above: Performed By: #### L 500.2500, L503.6620, L100.0100 ####[facility] [address] [place], [address] RDW SD 50.9 fl High 35.1-43.9 [facility] [facility] Comment on above: Performed By: #### L 500.2500, L503.6620, L100.0100 ####[facility] [address] [place], [address] WBC (Bld) [#/Vol] 8.4 10*3/uL Normal 4.4-11.0 [facility] Comment on above: Performed By: #### L 500.2500, L503.6620, L100.0100 ####[facility] [address] [place], [address] Chest 1 View (Portable)on Chest 1 View (Portable) Normal [facility] Emergency Department Summary on 06-19-2024 Emergency Department Summary Normal [facility] 12 Lead EKGon 05-30-2024 12 Lead EKG Normal [facility] BNP,B-Type NATRIURETIC PEPTI Ishaan 05-30-2024 Natriuretic peptide B (Bld) [Mass/Vol] 108.0 pg/mL High 0-100 [facility] Comment on above: Performed By: #### L 100.0100, L503.6620, L500.2500, L501.4020 ####[facility] [address] [place], [address] Basic Metabolic Profile (BMP )on 05-30-2024 BUN/CRE 12.8 RATIO Normal 06-19 [facility] Comment on above: Order Comment: 'TROP ' Serial specimen #1, #2 or #3: 1 Performed By: #### L 100.0100, L503.6620, L500.2500, L501.4020 ####[facility] [address] [place], [address] CA,Total 11.4 mg/dL High 8.5-10.1 [facility] Comment on above: Order Comment: 'TROP ' Serial specimen #1, #2 or #3: 1 Performed By: #### L 100.0100, L503.6620, L500.2500, L501.4020 ####[facility] [address] [place], [address] Chloride [Moles/Vol] 104 mmol/L Normal 98-107 [facility] Comment on above: Order Comment: 'TROP ' Serial specimen #1, #2 or #3: 1 Performed By: #### L 100.0100, L503.6620, L500.2500, L501.4020 ####[facility] [address] [place], [address] CO2 [Moles/Vol] 28.0 mmol/L Normal 21.0-32.0 [facility] Comment on above: Order Comment: 'TROP ' Serial specimen #1, #2 or #3: 1 Performed By: #### L 100.0100, L503.6620, L500.2500, L501.4020 ####[facility] [address] [place], [address] Creatinine [Mass/Vol] 0.93 mg/dL Normal 0.55-1.02 [facility] Comment on above: Order Comment: 'TROP ' Serial specimen #1, #2 or #3: 1 Result Comment: The validity of the calculated GFR GFRAA in patients over70 years has not been determined. Clinical correlation isessential. Performed By: #### L 100.0100, L503.6620, L500.2500, L501.4020 ####[facility] [address] [place], [address] ECRCL 45.88 ml/min Normal [facility] Comment on above: Order Comment: 'TROP ' Serial specimen #1, #2 or #3: 1 Performed By: #### L 100.0100, L503.6620, L500.2500, L501.4020 ####[facility] [address] [place], [address] EST GFR - AA 74 mL/min Normal >60 [facility] Comment on above: Order Comment: 'TROP ' Serial specimen #1, #2 or #3: 1 Result Comment: Afri can Cypriot GFR Calc Performed By: #### L 100.0100, L503.6620, L500.2500, L501.4020 ####[facility] [address] [place], [address] GAP 7 Normal 5-15 [facility] Comment on above: Order Comment: 'TROP ' Serial specimen #1, #2 or #3: 1 Performed By: #### L 100.0100, L503.6620, L500.2500, L501.4020 ####[facility] [address] [place], [address] GFR/1.73 sq M.predicted among non-blacks MDRD (S/P/Bld) [Vol rate/Area] 61 mL/min/{1.73_m2} Normal >60 [facility] Comment on above: Order Comment: 'TROP ' Serial specimen #1, #2 or #3: 1 Result Comment: Non- GFR Calc Performed By: #### L 100.0100, L503.6620, L500.2500, L501.4020 ####[facility] [address] [place], [address] Glucose [Mass/Vol] 167 mg/dL High 74-106 [facility] Comment on above: Order Comment: 'TROP ' Serial specimen #1, #2 or #3: 1 Result Comment: Fast ing Glucose result greater than or equal to 126 mg/dLsuggests DIABETES MELLITUS per A.D.A. criteria. Performed By: #### L 100.0100, L503.6620, L500.2500, L501.4020 ####[facility] [address] [place], [address] Potassium [Moles/Vol] 4.0 mmol/L Normal 3.5-5.1 [facility] Comment on above: Order Comment: 'TROP ' Serial specimen #1, #2 or #3: 1 Performed By: #### L 100.0100, L503.6620, L500.2500, L501.4020 ####[facility] [address] [place], [address] Sodium [Moles/Vol] 138 mmol/L Normal 136-145 [facility] Comment on above: Order Comment: 'TROP ' Serial specimen #1, #2 or #3: 1 Performed By: #### L 100.0100, L503.6620, L500.2500, L501.4020 ####[facility] [address] [place], [address] Urea nitrogen [Mass/Vol] 12 mg/dL Normal 7-18 [facility] Comment on above: Order Comment: 'TROP ' Serial specimen #1, #2 or #3: 1 Performed By: #### L 100.0100, L503.6620, L500.2500, L501.4020 ####[facility] [address] [place], [address] CBC W/Diff, Automatedon 05-03 PLT EST ADEQUATE Normal ADEQ [facility] Comment on above: Performed By: #### L 100.0100, L503.6620, L500.2500, L501.4020 ####[facility] [address] [place], [address] Chest PA and Lateralon 05-30 Chest PA and Lateral Normal [facility] Emergency Department Summary on 05-30-2024 Emergency Department Summary Normal [facility] L501.4020on 05-30-2024 TROPONIN-I HS 12 pg/mL Normal 3.0-54.0 [facility] Comment on above: Order Comment: 'TROP ' Serial specimen #1, #2 or #3: 1 Result Comment: Sean reyes Note: New Test Units and Gender Specific Reference Ranges. For more information see Policy Stat Procedure Otis High Sensitivity Troponin (TNIH) and attachments. Performed By: #### L 100.0100, L503.6620, L500.2500, L501.4020 ####[facility] [address] [place], [address] Inital Evaluation (1) - PTon 04-26-2024 Inital Evaluation (1) - PT Normal [facility] CBC W/Diff, Automatedon 03-31 Absolute Lymph 1.93 X10 3/uL Normal 0.83-4.51 [facility] Comment on above: Performed By: #### L 100.0100, L500.4050, L501.9985 ####[facility] [address] [place], [address] Absolute Neut 5.1 X10 3/uL Normal 2.0-7.7 [facility] Comment on above: Performed By: #### L 100.0100, L500.4050, L501.9985 ####[facility] [address] [place], [address] Basophils/100 WBC (Bld) 0.6 % Normal 0-1 [facility] Comment on above: Performed By: #### L 100.0100, L500.4050, L501.9985 ####[facility] [address] [place], [address] Eosinophils/100 WBC (Bld) 3.7 % Normal 0-5 [facility] Comment on above: Performed By: #### L 100.0100, L500.4050, L501.9985 ####[facility] [address] [place], [address] Erythrocyte distribution width (RBC) [Ratio] 16.0 % High 11.6-14.6 [facility] Comment on above: Performed By: #### L 100.0100, L500.4050, L501.9985 ####[facility] [address] [place], [address] Hematocrit (Bld) [Volume fraction] 34.9 % Low 37-47 [facility] Comment on above: Performed By: #### L 100.0100, L500.4050, L501.9985 ####[facility] [address] [place], [address] Hemoglobin (Bld) [Mass/Vol] 10.4 g/dL Low 12.0-15.0 [facility] Comment on above: Performed By: #### L 100.0100, L500.4050, L501.9985 ####[facility] [address] [place], [address] IG% 0.300 Normal 0.0-0.9 [facility] Comment on above: Result Comment: IG% - Immature Granulocytes (promyelocytes, myelocytes andmetamyelocytes) > 1% indicates that a LEFT SHIFT is Present. Performed By: #### L 100.0100, L500.4050, L501.9985 ####[facility] [address] [place], [address] Lymphocytes/100 WBC (Bld) 24.5 % Normal 19-41 [facility] Comment on above: Performed By: #### L 100.0100, L500.4050, L501.9985 ####[facility] [address] [place], [address] MCH (RBC) [Entitic mass] 24.4 pg Low 27.0-32.0 [facility] Comment on above: Performed By: #### L 100.0100, L500.4050, L501.9985 ####[facility] [address] [place], [address] MCHC (RBC) [Mass/Vol] 29.8 g/dL Low 32-36 [facility] Comment on above: Performed By: #### L 100.0100, L500.4050, L501.9985 ####[facility] [address] [place], [address] MCV (RBC) [Entitic vol] 81.9 fL Normal 81-99 [facility] Comment on above: Performed By: #### L 100.0100, L500.4050, L501.9985 ####[facility] [address] [place], [address] Monocytes/100 WBC (Bld) 6.8 % Normal 0-10 [facility] Comment on above: Performed By: #### L 100.0100, L500.4050, L501.9985 ####[facility] [address] [place], [address] Neutrophils/100 WBC (Bld) 64.1 % Normal 47-70 [facility] Comment on above: Performed By: #### L 100.0100, L500.4050, L501.9985 ####[facility] [address] [place], [address] Nucleated RBC (Bld) [#/Vol] 0 10*3/uL Normal 0-5 [facility] Comment on above: Performed By: #### L 100.0100, L500.4050, L501.9985 ####[facility] [address] [place], [address] Platelet mean volume (Bld) [Entitic vol] 10.7 fL Normal 6.2-12.0 [facility] Comment on above: Performed By: #### L 100.0100, L500.4050, L501.9985 ####[facility] [address] [place], [address] Platelets (Bld) [#/Vol] 294 10*3/uL Normal 150-450 [facility] Comment on above: Performed By: #### L 100.0100, L500.4050, L501.9985 ####[facility] [address] [place], [address] RBC (Bld) [#/Vol] 4.26 10*6/uL Normal 4.2-5.4 [facility] Comment on above: Performed By: #### L 100.0100, L500.4050, L501.9985 ####[facility] [address] [place], [address] RDW SD 48.0 fl High 35.1-43.9 [facility] Comment on above: Performed By: #### L 100.0100, L500.4050, L501.9985 ####[facility] [address] [place], [address] WBC (Bld) [#/Vol] 7.9 10*3/uL Normal 4.4-11.0 [facility] Comment on above: Performed By: #### L 100.0100, L500.4050, L501.9985 ####[facility] [address] [place], [address] Comprehensive Metabolic Prof [facility] 04-18-2024 Albumin [Mass/Vol] 3.0 g/dL Low 3.2-5.0 [facility] Comment on above: Performed By: #### L 100.0100, L500.4050, L501.9985 ####[facility] [address] [place], [address] Albumin/Globulin [Mass ratio] 0.6 {ratio} Low 0.9-2.4 [facility] Comment on above: Performed By: #### L 100.0100, L500.4050, L501.9985 ####[facility] [address] [place], [address] ALK P 130 U/L High 45-117 [facility] Comment on above: Performed By: #### L 100.0100, L500.4050, L501.9985 ####[facility] [address] [place], [address] ALT [Catalytic activity/Vol] 14 U/L Normal 13-56 [facility] Comment on above: Performed By: #### L 100.0100, L500.4050, L501.9985 ####[facility] [address] [place], [address] AST [Catalytic activity/Vol] 22 U/L Normal 15-37 [facility] Comment on above: Performed By: #### L 100.0100, L500.4050, L501.9985 ####[facility] [address] [place], [address] Bilirubin [Mass/Vol] 0.30 mg/dL Normal 0.20-1.00 [facility] Comment on above: Result Comment: For patients on eltrombopag therapy, use of Dimension Otis TBIL is not recommended. Performed By: #### L 100.0100, L500.4050, L501.9985 ####[facility] [address] [place], [address] BUN/CRE 12.5 RATIO Normal 10-20 [facility] Comment on above: Performed By: #### L 100.0100, L500.4050, L501.9985 ####[facility] [address] [place], [address] CA,Total 11.0 mg/dL High 8.5-10.1 [facility] Comment on above: Performed By: #### L 100.0100, L500.4050, L501.9985 ####[facility] [address] [place], [address] Chloride [Moles/Vol] 101 mmol/L Normal 98-107 [facility] Comment on above: Performed By: #### L 100.0100, L500.4050, L501.9985 ####[facility] [address] [place], [address] CO2 [Moles/Vol] 26.0 mmol/L Normal 21.0-32.0 [facility] Comment on above: Performed By: #### L 100.0100, L500.4050, L501.9985 ####[facility] [address] [place], [address] Creatinine [Mass/Vol] 0.96 mg/dL Normal 0.55-1.02 [facility] Comment on above: Result Comment: The validity of the calculated GFR GFRAA in patients over70 years has not been determined. Clinical correlation isessential. Performed By: #### L 100.0100, L500.4050, L501.9985 ####[facility] [address] [place], [address] EST GFR - AA 72 mL/min Normal >60 [facility] Comment on above: Result Comment: Afri can Cypriot GFR Calc Performed By: #### L 100.0100, L500.4050, L501.9985 ####[facility] [address] [place], [address] GAP 6 Normal 5-15 [facility] Comment on above: Performed By: #### L 100.0100, L500.4050, L501.9985 ####[facility] [address] [place], [address] GFR/1.73 sq M.predicted among non-blacks MDRD (S/P/Bld) [Vol rate/Area] 59 mL/min/{1.73_m2} Low >60 [facility] Comment on above: Result Comment: Non- GFR Calc Performed By: #### L 100.0100, L500.4050, L501.9985 ####[facility] [address] [place], [address] Globulin (S) [Mass/Vol] 5.4 g/dL High 2.2-4.2 [facility] Comment on above: Performed By: #### L 100.0100, L500.4050, L501.9985 ####[facility] [address] [place], [address] Glucose [Mass/Vol] 142 mg/dL High 74-106 [facility] Comment on above: Result Comment: Fast ing Glucose result greater than or equal to 126 mg/dLsuggests DIABETES MELLITUS per A.D.A. criteria. Performed By: #### L 100.0100, L500.4050, L501.9985 ####[facility] [address] [place], [address] Potassium [Moles/Vol] 3.5 mmol/L Normal 3.5-5.1 [facility] Comment on above: Performed By: #### L 100.0100, L500.4050, L501.9985 ####[facility] [address] [place], [address] Sodium [Moles/Vol] 133 mmol/L Low 136-145 [facility] Comment on above: Performed By: #### L 100.0100, L500.4050, L501.9985 ####[facility] [address] [place], [address] T PROT 8.4 g/dL High 6.4-8.2 [facility] Comment on above: Performed By: #### L 100.0100, L500.4050, L501.9985 ####[facility] [address] [place], [address] Urea nitrogen [Mass/Vol] 12 mg/dL Normal 7-18 [facility] Comment on above: Performed By: #### L 100.0100, L500.4050, L501.9985 ####[facility] [address] [place], [address] Hemoglobin A1con 04-18-2024 HbA1c (Bld) [Mass fraction] 8.2 % High 3.8-5.6 [facility] Comment on above: Result Comment: Norm al < 5.7 % Prediabetic 5.7 - 6.4 % Diabetic >or= 6.5 % Please note range changes. Performed By: #### L 100.0100, L500.4050, L501.9985 ####[facility] [address] [place], [address] Absolute lymphocyte countOrd ered By: Sunny Bell on 12-30-2023 Lymphocytes Auto (Unsp spec) [#/Vol] 2.48 10*3/uL 0.83-4.51 [facility] Automated lymphocyte count a s percentage of total leukocytesOrdered By: Sunny Bell on 12-30-2023 Lymphocytes/100 WBC Auto (Unsp spec) 25.3 % 19-41 [facility] Basophil percentageOrdered B y: Sunny Bell on 12-30-2023 Basophils/100 WBC (Bld) 0.3 % 0-1 [facility] Chloride [Moles/Vol] 104 mmol/L 98-107 [facility] Eosinophils/100 WBC (Bld) 1.4 % 0-5 [facility] Glucose [Mass/Vol] 127 mg/dL 74-106 [facility] Comment on above: Fasting Glucose resu lt greater than or equal to 126 mg/dL suggests DIABETES MELLITUS per A.D.A. criteria. Hemoglobin (Bld) [Mass/Vol] 10.7 g/dL 12.0-15.0 [facility] Monocytes/100 WBC (Bld) 8.7 % 0-10 [facility] Neutrophils (Bld) [#/Vol] 6.3 10*3/uL 2.0-7.7 [facility] Neutrophils/100 WBC (Bld) 63.9 % 47-70 [facility] Potassium [Moles/Vol] 4.4 mmol/L 3.5-5.1 [facility] Sodium [Moles/Vol] 135 mmol/L 136-145 [facility] WBC (Bld) [#/Vol] 9.8 10*3/uL 4.4-11.0 [facility] Determination of erythrocyte mean corpuscular volume (MCV)Ordered By: Sunny Bell on 12-30-2023 MCV (RBC) [Entitic vol] 84.9 fL 81-99 [facility] Erythrocyte distribution wid th ratioOrdered By: Sunny Bell on 12-30-2023 Erythrocyte distribution width (RBC) [Ratio] 15.5 % 11.6-14.6 [facility] Erythrocyte distribution wid th standard deviationOrdered By: Sunny Bell on 12-30-2023 Erythrocyte distribution width (RBC) [Entitic vol] 47.9 fL 35.1-43.9 [facility] Hematocrit Auto (Bld) [Volum e fraction]Ordered By: Sunny Bell on 12-30-2023 Hematocrit (Bld) [Volume fraction] 33.8 % 37-47 [facility] Immature granulocytes/100 WB C Auto (Bld)Ordered By: Sunny Bell on 12-30-2023 Immature granulocytes/100 WBC (Bld) 0.400 % 0.0-0.9 [facility] Comment on above: IG% - Immature Granu locytes (promyelocytes, myelocytes and metamyelocytes) > 1% indicates that a LEFT SHIFT is Present. Laboratory - Chemistry and C hemistry - challengeOrdered By: Sunny Bell on 12-30-2023 CO2 [Moles/Vol] 27.0 mmol/L 21.0-32.0 [facility] Urea nitrogen/Creatinine [Mass ratio] 21.3 mg/mg 10-20 [facility] Laboratory - Hematology and Cell countsOrdered By: Sunny Bell on 12-30-2023 MCH (RBC) [Entitic mass] 26.9 pg 27.0-32.0 [facility] MCHC (RBC) [Mass/Vol] 31.7 g/dL 32-36 [facility] Nucleated RBC/100 WBC (Bld) [Ratio] 0 % 0-5 [facility] Platelet mean volume (Bld) [Entitic vol] 11.3 fL 6.2-12.0 [facility] Platelets (Bld) [#/Vol] 191 10*3/uL 150-450 [facility] No Panel InformationOrdered By: Sunny Bell on 12-30-2023 Estimated Creatinine Clearance Calc 40.01 ml/min [facility] Estimated GFR (MDRD) Amer 63 mL/min >60 [facility] Comment on above: GFR Calc Estimated GFR (MDRD) Non-Af Amer 52 mL/min >60 [facility] Comment on above: Non- GFR Calc RBC Auto (Bld) [#/Vol]Ordere d By: Sunny Bell on 12-30-2023 RBC (Bld) [#/Vol] 3.98 10*6/uL 4.2-5.4 [facility] Serum or plasma calcium melanie urement (mass/volume)Ordered By: Sunny Bell on 12-30-2023 Calcium [Mass/Vol] 11.3 mg/dL 8.5-10.1 [facility] Serum or plasma creatinine m easurement (mass/volume)Ordered By: Sunny Bell on 12-30-2023 Creatinine [Mass/Vol] 1.08 mg/dL 0.55-1.02 [facility] Comment on above: The validity of the calculated GFR & GFRAA in patients over 70 years has not been determined. Clinical correlation is essential. Serum or plasma urea nitroge n measurement (mass/volume)Ordered By: Sunny Bell on 12-30-2023 Urea nitrogen [Mass/Vol] 23 mg/dL 7-18 [facility] Thin prep Papanicolaou smear with manual screeningOrdered By: Sunny Bell on 12-30-2023 Thin prep Papanicolaou smear with manual screening 78 mg/dL 74-106 [facility] Comment on above: MANAGEMENT OF PATIEN T CARE PER NURSING PROTOCOL Thin prep Papanicolaou smear with manual screening 4 5-15 [facility] Basophil percentageOrdered B y: Sunny Bell on 12-28-2023 Basophil percentage 3.0 mg/dL 2.5-4.9 [facility] No Panel InformationOrdered By: Nestor Bartlett on 12-28-2023 Parathyroid Hormone (Intact) 177.6 pg/mL 18.4-80.1 [facility] Absolute lymphocyte countOrd ered By: Queta Cortez on 12-27-2023 Lymphocytes Auto (Unsp spec) [#/Vol] 3.04 10*3/uL 0.83-4.51 [facility] Activated partial thrombopla stin time (aPTT) in platelet poor plasma by coagulation aOrdered By: Queta Cortez on 12-27-2023 aPTT Coag (PPP) [Time] 27.3 s 24.1-36.2 [facility] Automated lymphocyte count a s percentage of total leukocytesOrdered By: Queta Cortez on 12-27-2023 Lymphocytes/100 WBC Auto (Unsp spec) 37.1 % 19-41 [facility] Basophil percentageOrdered B y: Queta Cortez on 12-27-2023 Basophils/100 WBC (Bld) 0.5 % 0-1 [facility] Chloride [Moles/Vol] 103 mmol/L 98-107 [facility] Eosinophils/100 WBC (Bld) 3.1 % 0-5 [facility] Glucose [Mass/Vol] 254 mg/dL 74-106 [facility] Comment on above: Glucose result great er than or equal to 200 mg/dLsuggests DIABETES MELLITUS per A.D.A. criteria. Hemoglobin (Bld) [Mass/Vol] 12.4 g/dL 12.0-15.0 [facility] Monocytes/100 WBC (Bld) 6.6 % 0-10 [facility] Neutrophils (Bld) [#/Vol] 4.2 10*3/uL 2.0-7.7 [facility] Neutrophils/100 WBC (Bld) 51.7 % 47-70 [facility] Potassium [Moles/Vol] 4.2 mmol/L 3.5-5.1 [facility] Sodium [Moles/Vol] 136 mmol/L 136-145 [facility] WBC (Bld) [#/Vol] 8.2 10*3/uL 4.4-11.0 [facility] Determination of erythrocyte mean corpuscular volume (MCV)Ordered By: Queta Cortez on 12-27-2023 MCV (RBC) [Entitic vol] 85.2 fL 81-99 [facility] Erythrocyte distribution wid th ratioOrdered By: Queta Cortez on 12-27-2023 Erythrocyte distribution width (RBC) [Ratio] 15.5 % 11.6-14.6 [facility] Erythrocyte distribution wid th standard deviationOrdered By: Queta Cortez on 12-27-2023 Erythrocyte distribution width (RBC) [Entitic vol] 47.0 fL 35.1-43.9 [facility] Hematocrit Auto (Bld) [Volum e fraction]Ordered By: Queta Cortez on 12-27-2023 Hematocrit (Bld) [Volume fraction] 39.8 % 37-47 [facility] Immature granulocytes/100 WB C Auto (Bld)Ordered By: Queta Cortez on 12-27-2023 Immature granulocytes/100 WBC (Bld) 1.000 % 0.0-0.9 [facility] Comment on above: IG% - Immature Granu locytes (promyelocytes, myelocytes and metamyelocytes) > 1% indicates that a LEFT SHIFT is Present. Laboratory - Chemistry and C hemistry - challengeOrdered By: Queta Cortez on 12-27-2023 CO2 [Moles/Vol] 29.0 mmol/L 21.0-32.0 [facility] Urea nitrogen/Creatinine [Mass ratio] 18.5 mg/mg 10-20 [facility] Laboratory - CoagulationOrde red By: Queta Cortez on 12-27-2023 INR Coag (Bld) [Relative time] 1.1 {INR} [facility] PT Coag (PPP) [Time] 13.7 s 11.7-14.9 [facility] Laboratory - Hematology and Cell countsOrdered By: Queta Cortez on 12-27-2023 MCH (RBC) [Entitic mass] 26.6 pg 27.0-32.0 [facility] MCHC (RBC) [Mass/Vol] 31.2 g/dL 32-36 [facility] Nucleated RBC/100 WBC (Bld) [Ratio] 0 % 0-5 [facility] Platelet mean volume (Bld) [Entitic vol] 11.5 fL 6.2-12.0 [facility] Platelets (Bld) [#/Vol] 237 10*3/uL 150-450 [facility] No Panel InformationOrdered By: Queta Cortez on 12-27-2023 Estimated Creatinine Clearance Calc 37.33 ml/min [facility] Estimated GFR (MDRD) Amer 56 mL/min >60 [facility] Comment on above: GFR Calc Estimated GFR (MDRD) Non-Af Amer 46 mL/min >60 [facility] Comment on above: Non- GFR Calc RBC Auto (Bld) [#/Vol]Ordere d By: Queta Cortez on 12-27-2023 RBC (Bld) [#/Vol] 4.67 10*6/uL 4.2-5.4 [facility] Serum or plasma calcium melanie urement (mass/volume)Ordered By: Queta Cortez on 12-27-2023 Calcium [Mass/Vol] 11.2 mg/dL 8.5-10.1 [facility] Serum or plasma creatinine m easurement (mass/volume)Ordered By: Queta Cortez on 12-27-2023 Creatinine [Mass/Vol] 1.19 mg/dL 0.55-1.02 [facility] Comment on above: The validity of the calculated GFR & GFRAA in patients over 70 years has not been determined. Clinical correlation is essential. Serum or plasma urea nitroge n measurement (mass/volume)Ordered By: Queta Cortez on 12-27-2023 Urea nitrogen [Mass/Vol] 22 mg/dL 7-18 [facility] Thin prep Papanicolaou smear with manual screeningOrdered By: Queta Cortez on 12-27-2023 Thin prep Papanicolaou smear with manual screening 4 5-15 [facility] Whole blood hemoglobin A1c/t otal hemoglobin ratio (mass fraction)Ordered By: Nestor Bartlett on 12-27-2023 HbA1c (Bld) [Mass fraction] 9.4 % 3.8-5.6 [facility] Comment on above: Normal < 5.7 % Predi abetic 5.7 - 6.4 % Diabetic >or= 6.5 % Please note range changes. Absolute lymphocyte countOrd ered By: Ramone Smiley on 10-26-2023 Lymphocytes Auto (Unsp spec) [#/Vol] 2.86 10*3/uL 0.83-4.51 [facility] Automated lymphocyte count a s percentage of total leukocytesOrdered By: Ramone Smiley on 10-26-2023 Lymphocytes/100 WBC Auto (Unsp spec) 31.9 % 19-41 [facility] Basophil percentageOrdered B y: Ramone Smiley on 10-26-2023 Basophils/100 WBC (Bld) 0.6 % 0-1 [facility] Bilirubin [Mass/Vol] 0.30 mg/dL 0.20-1.00 [facility] Comment on above: For patients on eltr ombopag therapy, use of Dimension [place] TBIL is not recommended. Chloride [Moles/Vol] 101 mmol/L 98-107 [facility] Eosinophils/100 WBC (Bld) 2.6 % 0-5 [facility] Glucose [Mass/Vol] 135 mg/dL 74-106 [facility] Comment on above: Fasting Glucose resu lt greater than or equal to 126 mg/dL suggests DIABETES MELLITUS per A.D.A. criteria. Hemoglobin (Bld) [Mass/Vol] 10.9 g/dL 12.0-15.0 [facility] Monocytes/100 WBC (Bld) 8.0 % 0-10 [facility] Neutrophils (Bld) [#/Vol] 5.1 10*3/uL 2.0-7.7 [facility] Neutrophils/100 WBC (Bld) 56.6 % 47-70 [facility] Potassium [Moles/Vol] 4.5 mmol/L 3.5-5.1 [facility] Protein [Mass/Vol] 8.6 g/dL 6.4-8.2 [facility] Sodium [Moles/Vol] 134 mmol/L 136-145 [facility] WBC (Bld) [#/Vol] 9.0 10*3/uL 4.4-11.0 [facility] Determination of erythrocyte mean corpuscular volume (MCV)Ordered By: Ramone Smiley on 10-26-2023 MCV (RBC) [Entitic vol] 85.8 fL 81-99 [facility] Erythrocyte distribution wid th ratioOrdered By: Ramone Smiley on 10-26-2023 Erythrocyte distribution width (RBC) [Ratio] 17.5 % 11.6-14.6 [facility] Erythrocyte distribution wid th standard deviationOrdered By: Ramone Smiley on 10-26-2023 Erythrocyte distribution width (RBC) [Entitic vol] 55.2 fL 35.1-43.9 [facility] Hematocrit Auto (Bld) [Volum e fraction]Ordered By: Ramone Smiley on 10-26-2023 Hematocrit (Bld) [Volume fraction] 36.2 % 37-47 [facility] Immature granulocytes/100 WB C Auto (Bld)Ordered By: Ramone Smiley on 10-26-2023 Immature granulocytes/100 WBC (Bld) 0.300 % 0.0-0.9 [facility] Comment on above: IG% - Immature Granu locytes (promyelocytes, myelocytes and metamyelocytes) > 1% indicates that a LEFT SHIFT is Present. Laboratory - Chemistry and C hemistry - challengeOrdered By: Ramone Smiley on 10-26-2023 Albumin/Globulin [Mass ratio] 0.6 {ratio} 0.9-2.4 [facility] ALP [Catalytic activity/Vol] 109 U/L 45-117 [facility] ALT [Catalytic activity/Vol] 17 U/L 13-56 [facility] CO2 [Moles/Vol] 27.0 mmol/L 21.0-32.0 [facility] Cobalamin (Vitamin B12) [Mass/Vol] 654 pg/mL 211-911 [facility] Ferritin [Mass/Vol] 99 ng/mL 8-252 [facility] Globulin (S) [Mass/Vol] 5.4 g/dL 2.2-4.2 [facility] Urea nitrogen/Creatinine [Mass ratio] 17.6 mg/mg 10-20 [facility] Laboratory - Hematology and Cell countsOrdered By: Ramone Smiley on 10-26-2023 MCH (RBC) [Entitic mass] 25.8 pg 27.0-32.0 [facility] MCHC (RBC) [Mass/Vol] 30.1 g/dL 32-36 [facility] Nucleated RBC/100 WBC (Bld) [Ratio] 0 % 0-5 [facility] Platelet mean volume (Bld) [Entitic vol] 11.6 fL 6.2-12.0 [facility] Platelets (Bld) [#/Vol] 268 10*3/uL 150-450 [facility] No Panel InformationOrdered By: Ramone Smiley on 10-26-2023 Estimated GFR (MDRD) Amer 67 mL/min >60 [facility] Comment on above: GFR Calc Estimated GFR (MDRD) Non-Af Amer 55 mL/min >60 [facility] Comment on above: Non- GFR Calc Folate 23.70 ng/mL 3.1-55.4 [facility] Vitamin D 25-Hydroxy 34.5 ng/mL [facility] Comment on above: Vitamin D 25(OH) Sta tus Range Deficiency <20 ng/mL (50nmol/L) Insufficiency 20 - 30 ng/mL (50 - 75 nmol/L) Sufficiency 30 - 100 ng/mL (75 - 250 nmol/L) Toxicity >100 ng/mL (>250 nmol/L) RBC Auto (Bld) [#/Vol]Ordere d By: Ramone Smiley on 10-26-2023 RBC (Bld) [#/Vol] 4.22 10*6/uL 4.2-5.4 [facility] Serum or plasma calcium melanie urement (mass/volume)Ordered By: Ramone Smiley on 10-26-2023 Calcium [Mass/Vol] 11.2 mg/dL 8.5-10.1 [facility] Serum or plasma creatinine m easurement (mass/volume)Ordered By: Ramone Smiley on 10-26-2023 Creatinine [Mass/Vol] 1.02 mg/dL 0.55-1.02 [facility] Comment on above: The validity of the calculated GFR & GFRAA in patients over 70 years has not been determined. Clinical correlation is essential. Serum or plasma thyroid stim ulating hormone (TSH) measurement (units/volume)Ordered By: Ramone Smiley on 10-26-2023 TSH Qn 0.66 uIU/mL 0.358-3.74 [facility] Serum or plasma urea nitroge n measurement (mass/volume)Ordered By: Ramone Smiley on 10-26-2023 Urea nitrogen [Mass/Vol] 18 mg/dL 7-18 [facility] Thin prep Papanicolaou smear with manual screeningOrdered By: Ramone Smiley on 10-26-2023 Thin prep Papanicolaou smear with manual screening 3.2 g/dL 3.2-5.0 [facility] Thin prep Papanicolaou smear with manual screening 18 U/L 15-37 [facility] Thin prep Papanicolaou smear with manual screening 6 5-15 [facility] Whole blood hemoglobin A1c/t otal hemoglobin ratio (mass fraction)Ordered By: Ramone Smiley on 10-26-2023 HbA1c (Bld) [Mass fraction] 8.2 % 3.8-5.6 [facility] Comment on above: Normal < 5.7 % Predi abetic 5.7 - 6.4 % Diabetic >or= 6.5 % Please note range changes. Basophil percentageOrdered B y: Nestor Bartlett on 08-17-2023 Chloride [Moles/Vol] 105 mmol/L 98-107 [facility] Glucose [Mass/Vol] 167 mg/dL 74-106 [facility] Comment on above: Fasting Glucose resu lt greater than or equal to 126 mg/dL suggests DIABETES MELLITUS per A.D.A. criteria. Potassium [Moles/Vol] 4.9 mmol/L 3.5-5.1 [facility] Sodium [Moles/Vol] 139 mmol/L 136-145 [facility] WBC (Bld) [#/Vol] 8.4 10*3/uL 4.4-11.0 [facility] Blood erythrocytes count (nu mber/volume)Ordered By: Nestor Bartlett on 08-17-2023 RBC (Bld) [#/Vol] 3.41 10*6/uL 4.2-5.4 [facility] Blood hemoglobin measurement (mass/volume)Ordered By: Nestor Bartlett on 08-17-2023 Hemoglobin (Bld) [Mass/Vol] 8.9 g/dL 12.0-15.0 [facility] Blood platelet mean volumeOr dered By: Nestor Bartlett on 08-17-2023 Platelet mean volume (Bld) [Entitic vol] 10.4 fL 6.2-12.0 [facility] Determination of erythrocyte mean corpuscular volume (MCV)Ordered By: Nestor Bartlett on 08-17-2023 MCV (RBC) [Entitic vol] 84.5 fL 81-99 [facility] Glucose Glucometer (BldC) [M ass/Vol]Ordered By: Sandeep Denson on 08-17-2023 Glucose [Mass/Vol] 267 mg/dL 74-106 [facility] Comment on above: MANAGEMENT OF PATIEN T CARE PER NURSING PROTOCOL Hematocrit Auto (Bld) [Volum e fraction]Ordered By: Nestor Bartlett on 08-17-2023 Hematocrit (Bld) [Volume fraction] 28.8 % 37-47 [facility] Laboratory - Chemistry and C hemistry - challengeOrdered By: Nestor Bartlett on 08-17-2023 CO2 [Moles/Vol] 30.0 mmol/L 21.0-32.0 [facility] Urea nitrogen/Creatinine [Mass ratio] 19.9 mg/mg 10-20 [facility] Laboratory - Hematology and Cell countsOrdered By: Nestor Bartlett on 08-17-2023 Erythrocyte distribution width (RBC) [Entitic vol] 55.6 fL 35.1-43.9 [facility] Erythrocyte distribution width (RBC) [Ratio] 17.9 % 11.6-14.6 [facility] MCH (RBC) [Entitic mass] 26.1 pg 27.0-32.0 [facility] MCHC Auto (RBC) [Mass/Vol]Or dered By: Nestor Bartlett on 08-17-2023 MCHC (RBC) [Mass/Vol] 30.9 g/dL 32-36 [facility] No Panel InformationOrdered By: Nestor Bartlett on 08-17-2023 Estimated Creatinine Clearance Calc 41.47 ml/min [facility] Estimated GFR (MDRD) Amer 77 mL/min >60 [facility] Comment on above: GFR Calc Estimated GFR (MDRD) Non-Af Amer 64 mL/min >60 [facility] Comment on above: Non- GFR Calc Platelets bldOrdered By: Neida Bartlett on 08-17-2023 Platelets (Bld) [#/Vol] 480 10*3/uL 150-450 [facility] Serum or plasma calcium melanie urement (mass/volume)Ordered By: Nestor Bartlett on 08-17-2023 Calcium [Mass/Vol] 10.6 mg/dL 8.5-10.1 [facility] Serum or plasma creatinine m easurement (mass/volume)Ordered By: Nestor Bartlett on 08-17-2023 Creatinine [Mass/Vol] 0.91 mg/dL 0.55-1.02 [facility] Comment on above: The validity of the calculated GFR & GFRAA in patients over 70 years has not been determined. Clinical correlation is essential. Serum or plasma urea nitroge n measurement (mass/volume)Ordered By: Nestor Bartlett on 08-17-2023 Urea nitrogen [Mass/Vol] 18 mg/dL 7-18 [facility] Thin prep Papanicolaou smear with manual screeningOrdered By: Nestor Bartlett on 08-17-2023 Thin prep Papanicolaou smear with manual screening 4 5-15 [facility] Absolute lymphocyte countOrd ered By: Heydi Amaya on 08-14-2023 Lymphocytes Auto (Unsp spec) [#/Vol] 1.25 10*3/uL 0.83-4.51 [facility] Basophil percentageOrdered B y: Heydi Amaya on 08-14-2023 Basophil percentage 1.7 mg/dL 2.5-4.9 [facility] Basophils/100 WBC (Bld) 0.3 % 0-1 [facility] Eosinophils/100 WBC (Bld) 0.6 % 0-5 [facility] Neutrophils (Bld) [#/Vol] 9.0 10*3/uL 2.0-7.7 [facility] Neutrophils/100 WBC (Bld) 79.7 % 47-70 [facility] Blood lymphocytes/100 leukoc ytesOrdered By: Heydi Amaya on 08-14-2023 Lymphocytes/100 WBC (Bld) 11.1 % 19-41 [facility] Blood monocytes/100 leukocyt esOrdered By: Heydi Amaya on 08-14-2023 Monocytes/100 WBC (Bld) 6.1 % 0-10 [facility] Iron measurement (mass/mass) Ordered By: Nestor Bartlett on 08-14-2023 Iron (Unsp spec) [Mass/Mass] 14 ug/dL 50-170 [facility] Laboratory - Chemistry and C hemistry - challengeOrdered By: Nestor Bartlett on 08-14-2023 Cobalamin (Vitamin B12) [Mass/Vol] 250 pg/mL 211-911 [facility] Laboratory - Chemistry and C hemistry - challengeOrdered By: Heydi Amaya on 08-14-2023 Free T4 [Mass/Vol] 1.51 ng/dL 0.76-1.46 [facility] Magnesium [Mass/Vol] 2.1 mg/dL 1.6-2.6 [facility] Laboratory - Hematology and Cell countsOrdered By: Heydi Amaya on 08-14-2023 Immature granulocytes/100 WBC (Bld) 2.200 % 0.0-0.9 [facility] Comment on above: IG% - Immature Granu locytes (promyelocytes, myelocytes and metamyelocytes) > 1% indicates that a LEFT SHIFT is Present. Nucleated RBC/100 WBC (Bld) [Ratio] 0 % 0-5 [facility] No Panel InformationOrdered By: Heydi Amaya on 08-14-2023 Free Triiodothyronine (T3) pg/dL 1.9 pg/mL 2.18-3.98 [facility] Parathyroid Hormone (Intact) 153.7 pg/mL 18.4-80.1 [facility] Thyroid Stimulating Hormone (TSH) 0.01 uIU/mL 0.358-3.74 [facility] Vitamin D 25-Hydroxy 39.9 ng/mL [facility] Comment on above: Vitamin D 25(OH) Sta tus Range Deficiency <20 ng/mL (50nmol/L) Insufficiency 20 - 30 ng/mL (50 - 75 nmol/L) Sufficiency 30 - 100 ng/mL (75 - 250 nmol/L) Toxicity >100 ng/mL (>250 nmol/L) No Panel InformationOrdered By: Nestor Bartlett on 08-14-2023 Total Iron Binding Capacity 197 ug/dL 250-450 [facility] Serum or plasma ferritin rubina surement (mass/volume)Ordered By: Nestor Bartlett on 08-14-2023 Ferritin [Mass/Vol] 1578 ng/mL 8-252 [facility] Serum or plasma folate measu rement (mass/volume)Ordered By: Nestor Bartlett on 08-14-2023 Folate [Mass/Vol] 2.90 ng/mL 3.1-55.4 [facility] Serum or plasma iron saturat ion measurement (mass fraction)Ordered By: Nestor Bartlett on 12-15-2023 Iron saturation [Mass fraction] 7.1 % 15.0-55.0 [facility] Thin prep Papanicolaou smear with manual screeningOrdered By: Heydi Amaya on 08-14-2023 Thin prep Papanicolaou smear with manual screening 285 mOsm/KG 280-301 [facility] Absolute lymphocyte countOrd ered By: Robert Allison on 08-13-2023 Lymphocytes Auto (Unsp spec) [#/Vol] 1.37 10*3/uL 0.83-4.51 [facility] Basophil percentageOrdered B y: Robert Allison on 08-13-2023 Basophil percentage 10-25 SEEN /hpf 0-5 [facility] Lactate [Moles/Vol] 1.2 mmol/L 0.4-2.0 [facility] Basophils/100 WBC (Bld) 0.3 % 0-1 [facility] Bilirubin [Mass/Vol] 0.60 mg/dL 0.20-1.00 [facility] Comment on above: For patients on eltr ombopag therapy, use of Dimension [place] TBIL is not recommended. Chloride [Moles/Vol] 92 mmol/L 98-107 [facility] Eosinophils/100 WBC (Bld) 0.1 % 0-5 [facility] Glucose [Mass/Vol] 212 mg/dL 74-106 [facility] Comment on above: Glucose result great er than or equal to 200 mg/dLsuggests DIABETES MELLITUS per A.D.A. criteria. Neutrophils (Bld) [#/Vol] 12.1 10*3/uL 2.0-7.7 [facility] Neutrophils/100 WBC (Bld) 82.7 % 47-70 [facility] Potassium [Moles/Vol] 3.8 mmol/L 3.5-5.1 [facility] Comment on above: Moderate Hemolysis, Result may be falsely increased. Protein [Mass/Vol] 7.8 g/dL 6.4-8.2 [facility] Sodium [Moles/Vol] 127 mmol/L 136-145 [facility] WBC (Bld) [#/Vol] 14.7 10*3/uL 4.4-11.0 [facility] Bilirubin Test strip Ql (U)O rdered By: Robert Allison on 08-13-2023 Bilirubin Ql (U) Negative Negative [facility] Blood erythrocytes count (nu mber/volume)Ordered By: Robert Allison on 08-13-2023 RBC (Bld) [#/Vol] 3.83 10*6/uL 4.2-5.4 [facility] Blood hemoglobin measurement (mass/volume)Ordered By: Robert Allison on 08-13-2023 Hemoglobin (Bld) [Mass/Vol] 10.0 g/dL 12.0-15.0 [facility] Blood lymphocytes/100 leukoc ytesOrdered By: Robert Allison on 08-13-2023 Lymphocytes/100 WBC (Bld) 9.4 % 19-41 [facility] Blood monocytes/100 leukocyt esOrdered By: Robert Allison on 08-13-2023 Monocytes/100 WBC (Bld) 6.1 % 0-10 [facility] Blood platelet mean volumeOr dered By: Robert Allison on 08-13-2023 Platelet mean volume (Bld) [Entitic vol] 10.8 fL 6.2-12.0 [facility] Culture, urineOrdered By: Ester Allison on 08-13-2023 Bacteria identified Cx Nom (U) Klebsiella pneumoniae sp pneum [facility] Determination of erythrocyte mean corpuscular volume (MCV)Ordered By: Robert Allison on 08-13-2023 MCV (RBC) [Entitic vol] 85.1 fL 81-99 [facility] Hematocrit Auto (Bld) [Volum e fraction]Ordered By: Robert Allison on 08-13-2023 Hematocrit (Bld) [Volume fraction] 32.6 % 37-47 [facility] Influenza virus A and B and SARS-CoV-2 (COVID-19) Ag panel - Upper respiratory specimOrdered By: Robert Allison on 08-13-2023 SARS-CoV-2 (COVID-19) RNA BEBETO+probe Ql (Resp) [facility] Ketones Test strip Ql (U)Ord ered By: Robert Allison on 08-13-2023 Ketones Ql (U) 50 mg/dl Negative [facility] Laboratory - Chemistry and C hemistry - challengeOrdered By: Heydi Amaya on 08-13-2023 Sodium (U) [Moles/Vol] 24 mmol/L Not Establ. [facility] Laboratory - Chemistry and C hemistry - challengeOrdered By: Robert Allison on 08-13-2023 ALP [Catalytic activity/Vol] 105 U/L 45-117 [facility] ALT [Catalytic activity/Vol] 29 U/L 13-56 [facility] CO2 [Moles/Vol] 23.0 mmol/L 21.0-32.0 [facility] Globulin (S) [Mass/Vol] 5.6 g/dL 2.2-4.2 [facility] Urea nitrogen/Creatinine [Mass ratio] 26.3 mg/mg 10-20 [facility] Laboratory - Hematology and Cell countsOrdered By: Robert Allison on 08-13-2023 Erythrocyte distribution width (RBC) [Entitic vol] 53.7 fL 35.1-43.9 [facility] Erythrocyte distribution width (RBC) [Ratio] 17.2 % 11.6-14.6 [facility] Immature granulocytes/100 WBC (Bld) 1.400 % 0.0-0.9 [facility] Comment on above: IG% - Immature Granu locytes (promyelocytes, myelocytes and metamyelocytes) > 1% indicates that a LEFT SHIFT is Present. 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 [facility] Urine Urea Nitrogen 334 mg/dL NO RANGE EST. [facility] No Panel InformationOrdered By: Robert Espinomasood on 08-13-2023 Estimated Creatinine Clearance Calc 31.98 ml/min [facility] Estimated GFR (MDRD) Amer 57 mL/min >60 [facility] Comment on above: GFR Calc Estimated GFR (MDRD) Non-Af Amer 47 mL/min >60 [facility] Comment on above: Non- GFR Calc Troponin I High Sensitivity 39 pg/mL 3.0-54.0 [facility] Comment on above: Please Note: New Rosi t Units and Gender Specific Reference Ranges. For more information see Policy Stat Procedure [place] High Sensitivity Troponin (TNIH) and attachments. Platelets bldOrdered By: Harriet Espinomasood on 08-13-2023 Platelets (Bld) [#/Vol] 412 10*3/uL 150-450 [facility] Protein Test strip Ql (U)Ord ered By: Robert Espinomasood on 08-13-2023 Protein Ql (U) 30 mg/dl Negative [facility] Serum or plasma albumin melanie urement (mass/volume)Ordered By: Robert Espinomasood on 08-13-2023 Albumin [Mass/Vol] 2.2 g/dL 3.2-5.0 [facility] Serum or plasma albumin/glob ulin mass ratioOrdered By: [facility] [place] on 08-13-2023 Albumin/Globulin [Mass ratio] 0.4 {ratio} 0.9-2.4 [facility] Serum or plasma calcium melanie urement (mass/volume)Ordered By: [facility] on 08-13-2023 Calcium [Mass/Vol] 10.5 mg/dL 8.5-10.1 [facility] Serum or plasma creatinine m easurement (mass/volume)Ordered By: [facility] on 08-13-2023 Creatinine [Mass/Vol] 1.18 mg/dL 0.55-1.02 [facility] Comment on above: The validity of the calculated GFR & GFRAA in patients over 70 years has not been determined. Clinical correlation is essential. Serum or plasma urea nitroge n measurement (mass/volume)Ordered By: Robert Allison on 08-13-2023 Urea nitrogen [Mass/Vol] 31 mg/dL 7-18 [facility] Squamous epithelial cells de tection in urine sediment by light microscopyOrdered By: Robert Allison on 08-13-2023 Epithelial cells.squamous LM Ql (Urine sed) 0 SEEN /hpf 5-10 [facility] Thin prep Papanicolaou smear with manual screeningOrdered By: Heydi Amaya on 08-13-2023 Thin prep Papanicolaou smear with manual screening 20 mmol/L Not Establ. [facility] Thin prep Papanicolaou smear with manual screeningOrdered By: Robert Allison on 08-13-2023 Thin prep Papanicolaou smear with manual screening 36 U/L [facility] Comment on above: Moderate Hemolysis, Result may be falsely increased. Thin prep Papanicolaou smear with manual screening 01-12 [facility] Upper respiratory specimen i nfluenza A virus, influenza B virus, and severe acute resOrdered By: Robert Allison on 08-13-2023 Upper respiratory specimen influenza A virus, influenza B virus, and severe acute res [facility] Urine blood detectionOrdered By: Robert Allison on 08-13-2023 RBC Ql (U) 50 /ul Negative [facility] RBC Ql (U) 0-5 SEEN /hpf 0-5 [facility] Urine clarityOrdered By: Harriet Allison on 08-13-2023 Clarity (U) Sl. Cloudy Clear [facility] Urine color determinationOrd ered By: Robert Allison on 08-13-2023 Color (U) Yellow Yellow [facility] Urine creatinine measurement (mass/volume)Ordered By: eHydi Amaya on 08-13-2023 Creatinine (U) [Mass/Vol] 37.60 mg/dL NO RANGE EST. [facility] Urine glucose detectionOrder ed By: Robert Allison on 08-13-2023 Glucose Ql (U) 1000 mg/dl Normal [facility] Urine leukocyte esterase det ection by dipstickOrdered By: Robert Allison on 08-13-2023 Leukocyte esterase Test strip Ql (U) 500 /ul Negative [facility] Urine osmolality measurement Ordered By: Heydi Amaya on 08-13-2023 Osmolality (U) [Osmolality] 269 mOsm/KG >50 [facility] Comment on above: Normal Urine Referen ce Ranges Random: 50 - 1200 mOsm/kg H20 depending on fluid intake Random: >850 mOsm/kg after 12 hour fluid restriction 24 hour: ~300 - 900 mOsm/kg H2O Urine pHOrdered By: Robert latifr on 08-13-2023 pH (U) 5.0 [pH] 5.0 - 8.0 [facility] Urine sediment bacteria coun t by microscopy (number/high power field)Ordered By: Robert Allison on 08-13-2023 Bacteria LM.HPF (Urine sed) [#/Area] 3 /[HPF] None Seen [facility] Urine specific gravity measu rementOrdered By: Robert Allison on 08-13-2023 Specific gravity (U) [Rel density] 1.015 1.002-1.030 [facility] Urobilinogen Auto test strip Ql (U)Ordered By: Robert Allison on 08-13-2023 Urobilinogen Ql (U) Normal mg/dl Normal [facility] Absolute lymphocyte countOrd ered By: Winston Gill on 07-18-2023 Lymphocytes Auto (Unsp spec) [#/Vol] 0.92 10*3/uL 0.83-4.51 [facility] Basophil percentageOrdered B y: Winston Gill on 07-18-2023 Basophil percentage >100 SEEN /hpf 0-5 [facility] Basophils/100 WBC (Bld) 0.4 % 0-1 [facility] Bilirubin [Mass/Vol] 0.40 mg/dL 0.20-1.00 [facility] Comment on above: For patients on eltr ombopag therapy, use of Dimension [place] TBIL is not recommended. Chloride [Moles/Vol] 95 mmol/L 98-107 [facility] Eosinophils/100 WBC (Bld) 0.7 % 0-5 [facility] Glucose [Mass/Vol] 139 mg/dL 74-106 [facility] Comment on above: Fasting Glucose resu lt greater than or equal to 126 mg/dL suggests DIABETES MELLITUS per A.D.A. criteria. Neutrophils (Bld) [#/Vol] 5.4 10*3/uL 2.0-7.7 [facility] Neutrophils/100 WBC (Bld) 76.5 % 47-70 [facility] Potassium [Moles/Vol] 3.7 mmol/L 3.5-5.1 [facility] Protein [Mass/Vol] 7.4 g/dL 6.4-8.2 [facility] Sodium [Moles/Vol] 131 mmol/L 136-145 [facility] WBC (Bld) [#/Vol] 7.0 10*3/uL 4.4-11.0 [facility] Bilirubin Test strip Ql (U)O rdered By: Winston Gill on 07-18-2023 Bilirubin Ql (U) Negative Negative [facility] Blood erythrocytes count (nu mber/volume)Ordered By: Winston Gill on 07-18-2023 RBC (Bld) [#/Vol] 3.85 10*6/uL 4.2-5.4 [facility] Blood hemoglobin measurement (mass/volume)Ordered By: Winston Gill on 07-18-2023 Hemoglobin (Bld) [Mass/Vol] 10.8 g/dL 12.0-15.0 [facility] Blood lymphocytes/100 leukoc ytesOrdered By: Winston Gill on 07-18-2023 Lymphocytes/100 WBC (Bld) 13.1 % 19-41 [facility] Blood monocytes/100 leukocyt esOrdered By: Winston Gill on 07-18-2023 Monocytes/100 WBC (Bld) 8.0 % 0-10 [facility] Blood platelet mean volumeOr dered By: Winston Gill on 07-18-2023 Platelet mean volume (Bld) [Entitic vol] 10.0 fL 6.2-12.0 [facility] Culture, urineOrdered By: Devyn Rea on 07-18-2023 Bacteria identified Cx Nom (U) Escherichia coli [facility] Bacteria identified Cx Nom (U) Klebsiella pneumoniae sp pneum [facility] Determination of erythrocyte mean corpuscular volume (MCV)Ordered By: Winston Gill on 07-18-2023 MCV (RBC) [Entitic vol] 87.0 fL 81-99 [facility] Hematocrit Auto (Bld) [Volum e fraction]Ordered By: Winston Gill on 07-18-2023 Hematocrit (Bld) [Volume fraction] 33.5 % 37-47 [facility] Ketones Test strip Ql (U)Ord ered By: Winston Gill on 07-18-2023 Ketones Ql (U) 50 mg/dl Negative [facility] Laboratory - Chemistry and C hemistry - challengeOrdered By: Winston Gill on 07-18-2023 ALP [Catalytic activity/Vol] 93 U/L 45-117 [facility] ALT [Catalytic activity/Vol] 13 U/L 13-56 [facility] CO2 [Moles/Vol] 27.0 mmol/L 21.0-32.0 [facility] Globulin (S) [Mass/Vol] 4.8 g/dL 2.2-4.2 [facility] Urea nitrogen/Creatinine [Mass ratio] 15.6 mg/mg 10-20 [facility] Laboratory - Hematology and Cell countsOrdered By: Winston Gill on 07-18-2023 Erythrocyte distribution width (RBC) [Entitic vol] 52.4 fL 35.1-43.9 [facility] Erythrocyte distribution width (RBC) [Ratio] 16.4 % 11.6-14.6 [facility] Immature granulocytes/100 WBC (Bld) 1.300 % 0.0-0.9 [facility] Comment on above: IG% - Immature Granu locytes (promyelocytes, myelocytes and metamyelocytes) > 1% indicates that a LEFT SHIFT is Present. MCH (RBC) [Entitic mass] 28.1 pg 27.0-32.0 [facility] Nucleated RBC/100 WBC (Bld) [Ratio] 0 % 0-5 [facility] MCHC Auto (RBC) [Mass/Vol]Or dered By: Winston Gill on 07-18-2023 MCHC (RBC) [Mass/Vol] 32.2 g/dL 32-36 [facility] Mucus LM Ql (Urine sed)Order ed By: Winston Gill on 07-18-2023 Mucus Ql (Urine sed) 0 SEEN /hpf [facility] Nitrite Test strip Ql (U)Ord ered By: Winston Gill on 07-18-2023 Nitrite Ql (U) Negative Negative [facility] No Panel InformationOrdered By: Winston Gill on 07-18-2023 Estimated Creatinine Clearance Calc 45.46 ml/min [facility] Estimated GFR (MDRD) Amer 85 mL/min >60 [facility] Comment on above: GFR Calc Estimated GFR (MDRD) Non-Af Amer 70 mL/min >60 [facility] Comment on above: Non- GFR Calc Platelets bldOrdered By: Pet richar Jairo on 07-18-2023 Platelets (Bld) [#/Vol] 370 10*3/uL 150-450 [facility] Protein Test strip Ql (U)Ord ered By: Winston Gill on 07-18-2023 Protein Ql (U) 100 mg/dl Negative [facility] Serum or plasma albumin melanie urement (mass/volume)Ordered By: Winston Gill on 07-18-2023 Albumin [Mass/Vol] 2.6 g/dL 3.2-5.0 [facility] Serum or plasma albumin/glob ulin mass ratioOrdered By: Winston Gill on 07-18-2023 Albumin/Globulin [Mass ratio] 0.5 {ratio} 0.9-2.4 [facility] Serum or plasma calcium melanie urement (mass/volume)Ordered By: Winston Gill on 07-18-2023 Calcium [Mass/Vol] 10.3 mg/dL 8.5-10.1 [facility] Serum or plasma creatinine m easurement (mass/volume)Ordered By: Winston Gill on 07-18-2023 Creatinine [Mass/Vol] 0.83 mg/dL 0.55-1.02 [facility] Comment on above: The validity of the calculated GFR & GFRAA in patients over 70 years has not been determined. Clinical correlation is essential. Serum or plasma urea nitroge n measurement (mass/volume)Ordered By: Winston Gill on 07-18-2023 Urea nitrogen [Mass/Vol] 13 mg/dL - [facility] Squamous epithelial cells de tection in urine sediment by light microscopyOrdered By: Winston Gill on 07-18-2023 Epithelial cells.squamous LM Ql (Urine sed) 5-10 SEEN /hpf 5-10 [facility] Thin prep Papanicolaou smear with manual screeningOrdered By: Winston Gill on 11-18-2023 Thin prep Papanicolaou smear with manual screening 26 U/L 15-37 [facility] Thin prep Papanicolaou smear with manual screening 9 5-15 [facility] Urine blood detectionOrdered By: Winston Gill on 07-18-2023 RBC Ql (U) 50 /ul Negative [facility] RBC Ql (U) 0-5 SEEN /hpf 0-5 [facility] Urine clarityOrdered By: Pet richar Gill on 07-18-2023 Clarity (U) Cloudy Clear [facility] Urine color determinationOrd ered By: Winston Gill on 07-18-2023 Color (U) Yellow Yellow [facility] Urine glucose detectionOrder ed By: Winston Gill on 07-18-2023 Glucose Ql (U) 1000 mg/dl Normal [facility] Urine leukocyte esterase det ection by dipstickOrdered By: Winston Gill on 07-18-2023 Leukocyte esterase Test strip Ql (U) 500 /ul Negative [facility] Urine pHOrdered By: Winston castillo on 07-18-2023 pH (U) 5.0 [pH] 5.0 - 8.0 [facility] Urine sediment bacteria coun t by microscopy (number/high power field)Ordered By: Winston Gill on 07-18-2023 Bacteria LM.HPF (Urine sed) [#/Area] 3 /[HPF] None Seen [facility] Urine sediment leukocyte lisandro t count by microscopy (number/low power field)Ordered By: Winston Gill on 07-18-2023 WBC casts LM.LPF (Urine sed) [#/Area] 0-5 SEEN /lpf None Seen [facility] Urine specific gravity measu rementOrdered By: Winston Gill on 07-18-2023 Specific gravity (U) [Rel density] 1.020 1.002-1.030 [facility] Urobilinogen Auto test strip Ql (U)Ordered By: Winston Gill on 07-18-2023 Urobilinogen Ql (U) 1 mg/dl Normal [facility] No Panel Informationon 07-15 POC SARS CoV-2 Antigen Negative [facility] Amorphous sediment detection in urine sediment by light microscopyOrdered By: Cheryl Mendez on 06-01-2023 Amorphous sediment LM Ql (Urine sed) 1+ URATE [facility] Basophil percentageOrdered B y: Cheryl Mendez on 06-01-2023 Basophil percentage 5-10 SEEN /hpf 0-5 [facility] Bilirubin Test strip Ql (U)O rdered By: Cheryl Mendez on 06-01-2023 Bilirubin Ql (U) Negative Negative [facility] Ketones Test strip Ql (U)Ord ered By: Cheryl Mendez on 06-01-2023 Ketones Ql (U) Negative Negative [facility] Mucus LM Ql (Urine sed)Order ed By: Cheryl Mendez on 06-01-2023 Mucus Ql (Urine sed) 0 SEEN /hpf [facility] Nitrite Test strip Ql (U)Ord ered By: Cheryl Mendez on 06-01-2023 Nitrite Ql (U) Negative Negative [facility] No Panel InformationOrdered By: Cheryl Mendez on 06-01-2023 Urine Microalbumin/Creatinine Ratio 173.1 mg/g CRE <30 [facility] Protein Test strip Ql (U)Ord ered By: Cheryl Mendez on 06-01-2023 Protein Ql (U) 15 mg/dl Negative [facility] Squamous epithelial cells de tection in urine sediment by light microscopyOrdered By: Cheryl Mendez on 06-01-2023 Epithelial cells.squamous LM Ql (Urine sed) 0-5 SEEN /hpf 5-10 [facility] Thin prep Papanicolaou smear with manual screeningOrdered By: Cheryl Mendez on 06-01-2023 Thin prep Papanicolaou smear with manual screening 98.3 mg/L NO RANGE EST. [facility] Urine blood detectionOrdered By: Cheryl Mendez on 06-01-2023 RBC Ql (U) 25 /ul Negative [facility] RBC Ql (U) 0-5 SEEN /hpf 0-5 [facility] Urine clarityOrdered By: Dyana Mendez on 06-01-2023 Clarity (U) Cloudy Clear [facility] Urine color determinationOrd ered By: Cheryl Mendez on 06-01-2023 Color (U) Yellow Yellow [facility] Urine creatinine measurement (mass/volume)Ordered By: Cheryl Mendez on 06-01-2023 Creatinine (U) [Mass/Vol] 56.80 mg/dL NO RANGE EST. [facility] Urine glucose detectionOrder ed By: Cheryl Mendez on 06-01-2023 Glucose Ql (U) 1000 mg/dl Normal [facility] Urine leukocyte esterase det ection by dipstickOrdered By: Cheryl Mendez on 06-01-2023 Leukocyte esterase Test strip Ql (U) 100 /ul Negative [facility] Urine pHOrdered By: Nikki Mendez on 06-01-2023 pH (U) 5.0 [pH] 5.0 - 8.0 [facility] Urine sediment bacteria coun t by microscopy (number/high power field)Ordered By: Cheryl Mendez on 06-01-2023 Bacteria LM.HPF (Urine sed) [#/Area] 3 /[HPF] None Seen [facility] Urine specific gravity measu rementOrdered By: Cheryl Mendez on 06-01-2023 Specific gravity (U) [Rel density] 1.015 1.002-1.030 [facility] Urobilinogen Auto test strip Ql (U)Ordered By: Cheryl Mendez on 06-01-2023 Urobilinogen Ql (U) Normal mg/dl Normal [facility] Basophil percentageOrdered B y: Cheryl Mendez on 05-27-2023 Basophil percentage 2.7 mg/dL 2.5-4.9 [facility] Chloride [Moles/Vol] 102 mmol/L 98-107 [facility] Glucose [Mass/Vol] 220 mg/dL 74-106 [facility] Comment on above: Glucose result great er than or equal to 200 mg/dLsuggests DIABETES MELLITUS per A.D.A. criteria. Potassium [Moles/Vol] 3.9 mmol/L 3.5-5.1 [facility] Sodium [Moles/Vol] 137 mmol/L 136-145 [facility] Laboratory - Chemistry and C hemistry - challengeOrdered By: Cheryl Mendez on 05-27-2023 CO2 [Moles/Vol] 28.0 mmol/L 21.0-32.0 [facility] Urea nitrogen/Creatinine [Mass ratio] 10.0 mg/mg 10-20 [facility] No Panel InformationOrdered By: Cheryl Mendez on 05-27-2023 Estimated GFR (MDRD) Amer 89 mL/min >60 [facility] Comment on above: GFR Calc Estimated GFR (MDRD) Non-Af Amer 73 mL/min >60 [facility] Comment on above: Non- GFR Calc Parathyroid Hormone (Intact) 164.3 pg/mL 18.4-80.1 [facility] Vitamin D 25-Hydroxy 45.4 ng/mL [facility] Comment on above: Vitamin D 25(OH) Sta tus Range Deficiency <20 ng/mL (50nmol/L) Insufficiency 20 - 30 ng/mL (50 - 75 nmol/L) Sufficiency 30 - 100 ng/mL (75 - 250 nmol/L) Toxicity >100 ng/mL (>250 nmol/L) Serum or plasma albumin melanie urement (mass/volume)Ordered By: Cheryl Mendez on 05-27-2023 Albumin [Mass/Vol] 2.9 g/dL 3.2-5.0 [facility] Serum or plasma calcium melanie urement (mass/volume)Ordered By: Cheryl Mendez on 05-27-2023 Calcium [Mass/Vol] 10.7 mg/dL 8.5-10.1 [facility] Serum or plasma creatinine m easurement (mass/volume)Ordered By: Cheryl Mendez on 05-27-2023 Creatinine [Mass/Vol] 0.80 mg/dL 0.55-1.02 [facility] Comment on above: The validity of the calculated GFR & GFRAA in patients over 70 years has not been determined. Clinical correlation is essential. Serum or plasma urea nitroge n measurement (mass/volume)Ordered By: Cheryl Mendez on 05-27-2023 Urea nitrogen [Mass/Vol] 8 mg/dL 7-18 [facility] Culture, urineOrdered By: Allan Anguiano on 03-24-2023 Bacteria identified Cx Nom (U) Klebsiella pneumoniae sp pneum [facility] Bacteria identified Cx Nom (U) Klebsiella pneumoniae sp pneum [facility] Absolute lymphocyte countOrd ered By: Dr. Smiley on 01-28-2023 Lymphocytes Auto (Unsp spec) [#/Vol] 3.27 10*3/uL 0.83-4.51 [facility] Absolute lymphocyte countOrd ered By: Dr. Lockwood on 01-28-2023 Lymphocytes Auto (Unsp spec) [#/Vol] 2.27 10*3/uL 0.83-4.51 [facility] Basophil percentageOrdered B y: Dr. Smiley on 01-28-2023 Basophils/100 WBC (Bld) 0.5 % 0-1 [facility] Bilirubin [Mass/Vol] 0.30 mg/dL 0.20-1.00 [facility] Comment on above: For patients on eltr ombopag therapy, use of Dimension [place] TBIL is not recommended. Chloride [Moles/Vol] 99 mmol/L 98-107 [facility] Cholesterol [Mass/Vol] 145 mg/dL <200 [facility] Comment on above: <200 mg/dL Desirable 200-240 mg/dL Borderline >240 mg/dL High Risk Eosinophils/100 WBC (Bld) 2.3 % 0-5 [facility] Glucose [Mass/Vol] 182 mg/dL 74-106 [facility] Comment on above: Fasting Glucose resu lt greater than or equal to 126 mg/dL suggests DIABETES MELLITUS per A.D.A. criteria. Neutrophils (Bld) [#/Vol] 3.9 10*3/uL 2.0-7.7 [facility] Neutrophils/100 WBC (Bld) 50.0 % 47-70 [facility] Potassium [Moles/Vol] 3.6 mmol/L 3.5-5.1 [facility] Protein [Mass/Vol] 7.9 g/dL 6.4-8.2 [facility] Sodium [Moles/Vol] 134 mmol/L 136-145 [facility] Triglyceride [Mass/Vol] 119 mg/dL <199 [facility] Comment on above: The drugs N-Acetylcy steine and Metamizole may falsely depress this assay.Serum Triglycerides Reference Interval Normal <150 mg/dL Borderline high 150 - 199 mg/dL High 200 - 499 mg/dL Very High > or = 500 mg/dL WBC (Bld) [#/Vol] 7.7 10*3/uL 4.4-11.0 [facility] Basophil percentageOrdered B y: Dr. Lockwood on 01-28-2023 Basophils/100 WBC (Bld) 0.8 % 0-1 [facility] Chloride [Moles/Vol] 102 mmol/L 98-107 [facility] Eosinophils/100 WBC (Bld) 2.6 % 0-5 [facility] Glucose [Mass/Vol] 137 mg/dL 74-106 [facility] Comment on above: Fasting Glucose resu lt greater than or equal to 126 mg/dL suggests DIABETES MELLITUS per A.D.A. criteria. Neutrophils (Bld) [#/Vol] 3.8 10*3/uL 2.0-7.7 [facility] Neutrophils/100 WBC (Bld) 56.6 % 47-70 [facility] Potassium [Moles/Vol] 3.8 mmol/L 3.5-5.1 [facility] Protein [Mass/Vol] 7.4 g/dL 6.4-8.2 [facility] Sodium [Moles/Vol] 136 mmol/L 136-145 [facility] WBC (Bld) [#/Vol] 6.6 10*3/uL 4.4-11.0 [facility] Blood erythrocytes count (nu mber/volume)Ordered By: Dr. Smiley on 01-28-2023 RBC (Bld) [#/Vol] 4.10 10*6/uL 4.2-5.4 [facility] Blood erythrocytes count (nu mber/volume)Ordered By: Dr. Lockwood on 01-28-2023 RBC (Bld) [#/Vol] 3.83 10*6/uL 4.2-5.4 [facility] Blood hemoglobin measurement (mass/volume)Ordered By: Dr. Smiley on 01-28-2023 Hemoglobin (Bld) [Mass/Vol] 11.5 g/dL 12.0-15.0 [facility] Blood hemoglobin measurement (mass/volume)Ordered By: Dr. Lockwood on 01-28-2023 Hemoglobin (Bld) [Mass/Vol] 11.1 g/dL 12.0-15.0 [facility] Blood lymphocytes/100 leukoc ytesOrdered By: Dr. mSiley on 01-28-2023 Lymphocytes/100 WBC (Bld) 42.3 % [facility] Blood lymphocytes/100 leukoc ytesOrdered By: Dr. Lockwood on 01-28-2023 Lymphocytes/100 WBC (Bld) 34.2 % [facility] Blood monocytes/100 leukocyt esOrdered By: Dr. Smiley on 01-28-2023 Monocytes/100 WBC (Bld) 4.8 % 0-10 [facility] Blood monocytes/100 leukocyt esOrdered By: Dr. Lockwood on 01-28-2023 Monocytes/100 WBC (Bld) 5.6 % 0-10 [facility] Blood platelet mean volumeOr dered By: Dr. Smiley on 01-28-2023 Platelet mean volume (Bld) [Entitic vol] 9.8 fL 6.2-12.0 [facility] Blood platelet mean volumeOr dered By: Dr. Lockwood on 01-28-2023 Platelet mean volume (Bld) [Entitic vol] 9.3 fL 6.2-12.0 [facility] Determination of erythrocyte mean corpuscular volume (MCV)Ordered By: Dr. Smiley on 01-28-2023 MCV (RBC) [Entitic vol] 90.7 fL 81-99 [facility] Determination of erythrocyte mean corpuscular volume (MCV)Ordered By: Dr. Lockwood on 01-28-2023 MCV (RBC) [Entitic vol] 87.7 fL 81-99 [facility] Hematocrit Auto (Bld) [Volum e fraction]Ordered By: Dr. Smiley on 01-28-2023 Hematocrit (Bld) [Volume fraction] 37.2 % 37-47 [facility] Hematocrit Auto (Bld) [Volum e fraction]Ordered By: Dr. Lockwood on 01-28-2023 Hematocrit (Bld) [Volume fraction] 33.6 % 37-47 [facility] Laboratory - Chemistry and C hemistry - challengeOrdered By: Dr. Smiley on 01-28-2023 ALP [Catalytic activity/Vol] 153 U/L 45-117 [facility] ALT [Catalytic activity/Vol] 20 U/L 13-56 [facility] CO2 [Moles/Vol] 25.0 mmol/L 21.0-32.0 [facility] Globulin (S) [Mass/Vol] 4.9 g/dL 2.2-4.2 [facility] Urea nitrogen/Creatinine [Mass ratio] 10.7 mg/mg 10-20 [facility] Laboratory - Chemistry and C hemistry - challengeOrdered By: Dr. Lockwood on 01-28-2023 ALP [Catalytic activity/Vol] 140 U/L 45-117 [facility] CO2 [Moles/Vol] 27.0 mmol/L 21.0-32.0 [facility] Free T4 [Mass/Vol] 1.11 ng/dL 0[facility]76-[facility].46 [facility] Globulin (S) [Mass/Vol] 4.5 g/dL 2.2-4.2 [facility] Urea nitrogen/Creatinine [Mass ratio] 11.5 mg/mg 10-20 [facility] Laboratory - Hematology and Cell countsOrdered By: Dr. Smiley on 01-28-2023 Erythrocyte distribution width (RBC) [Entitic vol] 49.7 fL 35.1-43.9 [facility] Erythrocyte distribution width (RBC) [Ratio] 14.9 % 11.6-14.6 [facility] Immature granulocytes/100 WBC (Bld) 0.100 % 0.0-0.9 [facility] Comment on above: IG% - Immature Granu locytes (promyelocytes, myelocytes and metamyelocytes) > 1% indicates that a LEFT SHIFT is Present. MCH (RBC) [Entitic mass] 28.0 pg 27.0-32.0 [facility] Nucleated RBC/100 WBC (Bld) [Ratio] 0 % 0-5 [facility] Laboratory - Hematology and Cell countsOrdered By: Dr. Lockwood on 01-28-2023 Erythrocyte distribution width (RBC) [Entitic vol] 47.3 fL 35.1-43.9 [facility] Erythrocyte distribution width (RBC) [Ratio] 14.8 % 11.6-14.6 [facility] Immature granulocytes/100 WBC (Bld) 0.200 % 0.0-0.9 [facility] Comment on above: IG% - Immature Granu locytes (promyelocytes, myelocytes and metamyelocytes) > 1% indicates that a LEFT SHIFT is Present. MCH (RBC) [Entitic mass] 29.0 pg 27.0-32.0 [facility] MCHC Auto (RBC) [Mass/Vol]Or dered By: Dr. Smiley on 01-28-2023 MCHC (RBC) [Mass/Vol] 30.9 g/dL 32-36 [facility] Auto (RBC) [Mass/Vol]Or dered By: Dr. Lockwood on 01-28-2023 MCHC (RBC) [Mass/Vol] 33.0 g/dL [facility] Comment on above: Delta: 30.9 on 01/280 No Panel InformationOrdered By: Dr. Lockwood on 01-28-2023 Estimated Creatinine Clearance Calc 37.74 ml/min [facility] Estimated GFR (MDRD) Amer 91 mL/min >60 [facility] Comment on above: GFR Calc Estimated GFR (MDRD) Non-Af Amer 75 mL/min >60 [facility] Comment on above: Non- GFR Calc Free Triiodothyronine (T3) pg/dL 2.9 pg/mL 2.18-3.98 [facility] No Panel InformationOrdered By: Dr. Smiley on 01-28-2023 Estimated GFR (MDRD) Amer 84 mL/min >60 [facility] Comment on above: GFR Calc Estimated GFR (MDRD) Non-Af Amer 70 mL/min >60 [facility] Comment on above: Non- GFR Calc Parathyroid Hormone (Intact) 112.9 pg/mL 18.4-80.1 [facility] Thyroid Stimulating Hormone (TSH) 0.02 uIU/mL 0.358-3.74 [facility] Vitamin D 25-Hydroxy 66.1 ng/mL [facility] Comment on above: Vitamin D 25(OH) Sta tus Range Deficiency <20 ng/mL (50nmol/L) Insufficiency 20 - 30 ng/mL (50 - 75 nmol/L) Sufficiency 30 - 100 ng/mL (75 - 250 nmol/L) Toxicity >100 ng/mL (>250 nmol/L) Platelets bldOrdered By: Dr. Smiley on 01-28-2023 Platelets (Bld) [#/Vol] 349 10*3/uL 150-450 [facility] Platelets bldOrdered By: Dr. Lockwood on 01-28-2023 Platelets (Bld) [#/Vol] 285 10*3/uL 150-450 [facility] Serum or plasma albumin melanie urement (mass/volume)Ordered By: Dr. Smiley on 01-28-2023 Albumin [Mass/Vol] 3.0 g/dL 3.2-5.0 [facility] Serum or plasma albumin melanie urement (mass/volume)Ordered By: Dr. Lockwood on 01-28-2023 Albumin [Mass/Vol] 2.9 g/dL 3.2-5.0 [facility] Serum or plasma albumin/glob ulin mass ratioOrdered By: Dr. Smiley on 01-28-2023 Albumin/Globulin [Mass ratio] 0.6 {ratio} 0.9-2.4 [facility] Serum or plasma calcium melanie urement (mass/volume)Ordered By: Dr. Smiley on 01-28-2023 Calcium [Mass/Vol] 11.5 mg/dL 8.5-10.1 [facility] Serum or plasma calcium melanie urement (mass/volume)Ordered By: Dr. Lockwood on 01-28-2023 Calcium [Mass/Vol] 11.4 mg/dL 8.5-10.1 [facility] Serum or plasma cholesterol in HDL measurement (mass/volume)Ordered By: Dr. Smiley on 01-28-2023 Cholesterol in HDL [Mass/Vol] 46 mg/dL >40 [facility] Comment on above: The drugs N-Acetylcy steine and Metamizole may falsely depress this assay. Reference Range HDL <40 mg/dL Low HDL Cholesterol HDL >or= 60 mg/dL High HDL Cholesterol Serum or plasma cholesterol in VLDL measurement (mass/volume)Ordered By: Dr. Smiley on 01-28-2023 Cholesterol in VLDL [Mass/Vol] 24 mg/dL 5-40 [facility] Serum or plasma creatinine m easurement (mass/volume)Ordered By: Dr. Smiley on 01-28-2023 Creatinine [Mass/Vol] 0.84 mg/dL 0.55-1.02 [facility] Comment on above: The validity of the calculated GFR & GFRAA in patients over 70 years has not been determined. Clinical correlation is essential. Serum or plasma creatinine m easurement (mass/volume)Ordered By: Dr. Lockwood on 01-28-2023 Creatinine [Mass/Vol] 0.78 mg/dL 0.55-1.02 [facility] Comment on above: The validity of the calculated GFR & GFRAA in patients over 70 years has not been determined. Clinical correlation is essential. Serum or plasma low density lipoprotein (LDL) cholesterol measurement (mass/volume)Ordered By: Dr. Smiley on 01-28-2023 Cholesterol in LDL [Mass/Vol] 75 mg/dL 0-130 [facility] Serum or plasma urea nitroge n measurement (mass/volume)Ordered By: Dr. Smiley on 01-28-2023 Urea nitrogen [Mass/Vol] 9 mg/dL 7-18 [facility] Thin prep Papanicolaou smear with manual screeningOrdered By: Dr. Smiley on 01-28-2023 Thin prep Papanicolaou smear with manual screening 22 U/L 15- [facility] Thin prep Papanicolaou smear with manual screening 10 01-12 [facility] Thin prep Papanicolaou smear with manual screeningOrdered By: Dr. Lockwood on 01-28-2023 Thin prep Papanicolaou smear with manual screening 18 U/L [facility] Thin prep Papanicolaou smear with manual screening 7 - [facility] Whole blood hemoglobin A1c/t otal hemoglobin ratio (mass fraction)Ordered By: Dr. Smiley on 01-28-2023 HbA1c (Bld) [Mass fraction] 7.5 % 3.8-5.6 [facility] Comment on above: Normal < 5.7 % Predi abetic 5.7 - 6.4 % Diabetic >or= 6.5 % Please note range changes. Basophil percentageOrdered B y: Dr. Smiley on 12-09-2022 Bilirubin [Mass/Vol] 0.20 mg/dL 0.20-1.00 [facility] Comment on above: For patients on eltr ombopag therapy, use of Dimension [place] TBIL is not recommended. Chloride [Moles/Vol] 101 mmol/L 98-107 [facility] Glucose [Mass/Vol] 168 mg/dL 74-106 [facility] Comment on above: Fasting Glucose resu lt greater than or equal to 126 mg/dL suggests DIABETES MELLITUS per A.D.A. criteria. Potassium [Moles/Vol] 3.7 mmol/L 3.5-5.1 [facility] Protein [Mass/Vol] 8.7 g/dL 6.4-8.2 [facility] Sodium [Moles/Vol] 133 mmol/L 136-145 [facility] Laboratory - Chemistry and C hemistry - challengeOrdered By: Dr. Smiley on 12-09-2022 ALP [Catalytic activity/Vol] 164 U/L 45-117 [facility] ALT [Catalytic activity/Vol] 27 U/L 13-56 [facility] CO2 [Moles/Vol] 25.0 mmol/L 21.0-32.0 [facility] Globulin (S) [Mass/Vol] 5.4 g/dL 2.2-4.2 [facility] Urea nitrogen/Creatinine [Mass ratio] 10.7 mg/mg 10-20 [facility] No Panel InformationOrdered By: Dr. Smiley on 12-09-2022 Estimated GFR (MDRD) Amer 67 mL/min >60 [facility] Comment on above: GFR Calc Estimated GFR (MDRD) Non-Af Amer 55 mL/min >60 [facility] Comment on above: Non- GFR Calc Parathyroid Hormone (Intact) 175.0 pg/mL 18.4-80.1 [facility] Vitamin D 25-Hydroxy 92.6 ng/mL [facility] Comment on above: Vitamin D 25(OH) Sta tus Range Deficiency <20 ng/mL (50nmol/L) Insufficiency 20 - 30 ng/mL (50 - 75 nmol/L) Sufficiency 30 - 100 ng/mL (75 - 250 nmol/L) Toxicity >100 ng/mL (>250 nmol/L) Serum or plasma albumin melanie urement (mass/volume)Ordered By: Dr. Smiley on 12-09-2022 Albumin [Mass/Vol] 3.3 g/dL 3.2-5.0 [facility] Serum or plasma albumin/glob ulin mass ratioOrdered By: Dr. Smiley on 12-09-2022 Albumin/Globulin [Mass ratio] 0.6 {ratio} 0.9-2.4 [facility] Serum or plasma calcium melanie urement (mass/volume)Ordered By: Dr. Smiley on 12-09-2022 Calcium [Mass/Vol] 11.4 mg/dL 8.5-10.1 [facility] Serum or plasma creatinine m easurement (mass/volume)Ordered By: Dr. Smiley on 12-09-2022 Creatinine [Mass/Vol] 1.03 mg/dL 0.55-1.02 [facility] Comment on above: The validity of the calculated GFR & GFRAA in patients over 70 years has not been determined. Clinical correlation is essential. Serum or plasma urea nitroge n measurement (mass/volume)Ordered By: Dr. Smiley on 12-09-2022 Urea nitrogen [Mass/Vol] 11 mg/dL 7-18 [facility] Thin prep Papanicolaou smear with manual screeningOrdered By: Dr. Smiley on 12-09-2022 Thin prep Papanicolaou smear with manual screening 20 U/L 15-37 [facility] Thin prep Papanicolaou smear with manual screening 7 5-15 [facility] Whole blood hemoglobin A1c/t otal hemoglobin ratio (mass fraction)Ordered By: Dr. Smiley on 12-09-2022 HbA1c (Bld) [Mass fraction] 7.4 % 3.8-5.6 [facility] Comment on above: Normal < 5.7 % Predi abetic 5.7 - 6.4 % Diabetic >or= 6.5 % Please note range changes. Absolute lymphocyte counton 07-14-2022 Lymphocytes Auto (Unsp spec) [#/Vol] 2.79 10*3/uL 0.83-4.51 [facility] Work Phone: Basophil percentageon 2021 Basophil percentage 25-50 SEEN /hpf 0-5 [facility] Work Phone: Basophils/100 WBC (Bld) 0.5 % 0-1 [facility] Work Phone: Bilirubin [Mass/Vol] 0.30 mg/dL 0.20-1.00 [facility] Work Phone: Comment on above: For patients on eltr ombopag therapy, use of Dimension [place] TBIL is not recommended. Chloride [Moles/Vol] 102 mmol/L 98-107 [facility] Work Phone: Eosinophils/100 WBC (Bld) 3.2 % 0-5 [facility] Work Phone: Glucose [Mass/Vol] 143 mg/dL 74-106 [facility] Work Phone: Comment on above: Fasting Glucose resu lt greater than or equal to 126 mg/dL suggests DIABETES MELLITUS per A.D.A. criteria. Neutrophils (Bld) [#/Vol] 4.5 10*3/uL 2.0-7.7 [facility] Work Phone: Neutrophils/100 WBC (Bld) 54.7 % 47-70 [facility] Work Phone: Potassium [Moles/Vol] 4.9 mmol/L 3.5-5.1 [facility] Work Phone: Comment on above: Moderate Hemolysis, Result may be falsely increased. Protein [Mass/Vol] 8.3 g/dL 6.4-8.2 [facility] Work Phone: Sodium [Moles/Vol] 136 mmol/L 136-145 [facility] Work Phone: WBC (Bld) [#/Vol] 8.1 10*3/uL 4.4-11.0 [facility] Work Phone: Bilirubin Test strip Ql (U)o n 07-14-2022 Bilirubin Ql (U) Negative Negative [facility] Work Phone: Blood erythrocytes count (nu mber/volume)on 07-14-2022 RBC (Bld) [#/Vol] 4.15 10*6/uL 4.2-5.4 [facility] Work Phone: Blood hemoglobin measurement (mass/volume)on 07-14-2022 Hemoglobin (Bld) [Mass/Vol] 12.0 g/dL 12.0-15.0 [facility] Work Phone: Blood lymphocytes/100 leukoc yteson 07-14-2022 Lymphocytes/100 WBC (Bld) 34.4 % 19-41 [facility] Work Phone: Blood monocytes/100 leukocyt eson 07-14-2022 Monocytes/100 WBC (Bld) 6.8 % 0-10 [facility] Work Phone: Blood platelet mean volumeon 07-14-2022 Platelet mean volume (Bld) [Entitic vol] 10.2 fL 6.2-12.0 [facility] Work Phone: Determination of erythrocyte mean corpuscular volume (MCV)on 07-14-2022 MCV (RBC) [Entitic vol] 90.8 fL 81-99 [facility] Work Phone: Hematocrit Auto (Bld) [Volum e fraction]on 07-14-2022 Hematocrit (Bld) [Volume fraction] 37.7 % 37-47 [facility] Work Phone: Ketones Test strip Ql (U)on 07-14-2022 Ketones Ql (U) Negative Negative [facility] Work Phone: Laboratory - Chemistry and C hemistry - challengeon 07-14-2022 ALP [Catalytic activity/Vol] 131 U/L 45-117 [facility] Work Phone: ALT [Catalytic activity/Vol] 33 U/L 13-56 [facility] Work Phone: CO2 [Moles/Vol] 31.0 mmol/L 21.0-32.0 [facility] Work Phone: Globulin (S) [Mass/Vol] 5.0 g/dL 2.2-4.2 [facility] Work Phone: Urea nitrogen/Creatinine [Mass ratio] 14.7 mg/mg 10-20 [facility] Work Phone: Laboratory - Hematology and Cell countson 07-14-2022 Erythrocyte distribution width (RBC) [Entitic vol] 49.9 fL 35.1-43.9 [facility] Work Phone: Erythrocyte distribution width (RBC) [Ratio] 15.1 % 11.6-14.6 [facility] Work Phone: Immature granulocytes/100 WBC (Bld) 0.400 % 0.0-0.9 [facility] Work Phone: Comment on above: IG% - Immature Granu locytes (promyelocytes, myelocytes and metamyelocytes) > 1% indicates that a LEFT SHIFT is Present. MCH (RBC) [Entitic mass] 28.9 pg 27.0-32.0 [facility] Work Phone: Nucleated RBC/100 WBC (Bld) [Ratio] 0 % 0-5 [facility] Work Phone: MCHC Auto (RBC) [Mass/Vol]on 07-14-2022 MCHC (RBC) [Mass/Vol] 31.8 g/dL 32-36 [facility] Work Phone: Mucus LM Ql (Urine sed)on Mucus Ql (Urine sed) 0 SEEN /hpf [facility] Work Phone: Nitrite Test strip Ql (U)on 07-14-2022 Nitrite Ql (U) Negative Negative [facility] Work Phone: No Panel Informationon 07-14 Estimated Creatinine Clearance Calc 40.37 ml/min [facility] Work Phone: Estimated GFR (MDRD) Amer 73 mL/min >60 [facility] Work Phone: Comment on above: GFR Calc Estimated GFR (MDRD) Non-Af Amer 60 mL/min >60 [facility] Work Phone: Comment on above: Non- GFR Calc Platelets bldon 07-14-2022 Platelets (Bld) [#/Vol] 267 10*3/uL 150-450 [facility] Work Phone: Protein Test strip Ql (U)on 07-14-2022 Protein Ql (U) 30 mg/dl Negative [facility] Work Phone: Serum or plasma albumin melanie urement (mass/volume)on 07-14-2022 Albumin [Mass/Vol] 3.3 g/dL 3.2-5.0 [facility] Work Phone: Serum or plasma albumin/glob ulin mass ratioon 07-14-2022 Albumin/Globulin [Mass ratio] 0.7 {ratio} 0.9-2.4 [facility] Work Phone: Serum or plasma calcium melanie urement (mass/volume)on 07-14-2022 Calcium [Mass/Vol] 11.4 mg/dL 8.5-10.1 [facility] Work Phone: Serum or plasma creatinine m easurement (mass/volume)on 07-14-2022 Creatinine [Mass/Vol] 0.95 mg/dL 0.55-1.02 [facility] Work Phone: Comment on above: The validity of the calculated GFR & GFRAA in patients over 70 years has not been determined. Clinical correlation is essential. Serum or plasma urea nitroge n measurement (mass/volume)on 07-14-2022 Urea nitrogen [Mass/Vol] 14 mg/dL 7-18 [facility] Work Phone: Squamous epithelial cells de tection in urine sediment by light microscopyon 07-14-2022 Epithelial cells.squamous LM Ql (Urine sed) 0-5 SEEN /hpf 5-10 [facility] Work Phone: Thin prep Papanicolaou smear with manual screeningon 07-14-2022 Thin prep Papanicolaou smear with manual screening 44 U/L 15-37 [facility] Work Phone: Comment on above: Moderate Hemolysis, Result may be falsely increased. Thin prep Papanicolaou smear with manual screening 3 5-15 [facility] Work Phone: Urine blood detectionon 07-01 RBC Ql (U) 25 /ul Negative [facility] Work Phone: RBC Ql (U) 0 SEEN /hpf 0-5 [facility] Work Phone: Urine clarityon 07-14-2022 Clarity (U) Sl. Cloudy Clear [facility] Work Phone: Urine color determinationon 07-14-2022 Color (U) Yellow Yellow [facility] Work Phone: Urine glucose detectionon Glucose Ql (U) 1000 mg/dl Normal [facility] Work Phone: Urine leukocyte esterase det ection by dipstickon 07-14-2022 Leukocyte esterase Test strip Ql (U) 500 /ul Negative [facility] Work Phone: Urine pHon 07-14-2022 pH (U) 6.0 [pH] 5.0 - 8.0 [facility] Work Phone: Urine sediment bacteria coun t by microscopy (number/high power field)on 07-14-2022 Bacteria LM.HPF (Urine sed) [#/Area] 3 /[HPF] None Seen [facility] Work Phone: Urine specific gravity measu rementon 07-14-2022 Specific gravity (U) [Rel density] 1.015 1.002-1.030 [facility] Work Phone: Urobilinogen Auto test strip Ql (U)on 07-14-2022 Urobilinogen Ql (U) Normal mg/dl Normal [facility] Work Phone: CBC W Auto Differential pane l (Bld)on 05-07-2022 Basophils (Bld) [#/Vol] 0.05 10*3/uL Normal <0.11 [facility] Comment on above: Order Comment: Speci men Type: BLOOD SPECIMEN Ordering Facility: [facility] Address: [address] [address] Performed By: #### 5 7021-8 #### [facility] CLIA [id number] [address] [place] [address] [place] [facility] Basophils/100 WBC (Bld) 0.7 % Normal [facility] Comment on above: Order Comment: Speci men Type: BLOOD SPECIMEN Ordering Facility: [facility] Address: [facility] [id number] Performed By: #### 5 7021-8 #### [facility] CLIA [id number] [address] [place] [address] [place] Differential cell count method Nom (Bld) Auto Normal [facility] Comment on above: Order Comment: Speci men Type: BLOOD SPECIMEN Ordering Facility: [facility] Address: [address] [place] [address] Performed By: #### 5 7021-8 #### [facility] CLIA [id number] [address] [place] [address] [place] Eosinophils (Bld) [#/Vol] 0.32 10*3/uL Normal <0.46 [facility] Comment on above: Order Comment: Speci men Type: BLOOD SPECIMEN Ordering Facility: [facility] Address: [address] [place] [address] Performed By: #### 5 7021-8 #### [facility] CLIA [id number] [address] [place] [address] [place] Eosinophils/100 WBC (Bld) 4.7 % Normal [facility] Comment on above: Order Comment: Speci men Type: BLOOD SPECIMEN Ordering Facility: [facility] Address: [address] [place] [address] Performed By: #### 5 7021-8 #### [facility] CLIA [id number] [address] [place] [address] [place] Erythrocyte distribution width (RBC) [Ratio] 14.6 % Normal 11.5-15.0 [facility] Comment on above: Order Comment: Speci men Type: BLOOD SPECIMEN Ordering Facility: [facility] Address: [address] [place] [address] Performed By: #### 5 7021-8 #### [facility] CLIA [id number] [address] [place] [address] [place] Hematocrit (Bld) [Volume fraction] 37.2 % Normal 36.0-46.0 [facility] Comment on above: Order Comment: Speci men Type: BLOOD SPECIMEN Ordering Facility: [facility] Address: [address] [place] [address] Performed By: #### 5 7021-8 #### [facility] CLIA [id number] [address] [place] [address] [place] Hemoglobin (Bld) [Mass/Vol] 12.0 g/dL Normal 11.5-15.5 [facility] Comment on above: Order Comment: Speci men Type: BLOOD SPECIMEN Ordering Facility: [facility] Address: [address] [place] [address] Performed By: #### 5 7021-8 #### [facility] CLIA [id number] [address] [place] [address] [place] IMMATURE GRAN % 0.1 % Normal [facility] Comment on above: Order Comment: Speci men Type: BLOOD SPECIMEN Ordering Facility: [facility] Address: [address] [place] [address] Performed By: #### 5 7021-8 #### [id number] [address] [place] [address] [place] IMMATURE GRAN ABS <0.03 Normal <0.10 [facility] Comment on above: Order Comment: Speci men Type: BLOOD SPECIMEN Ordering Facility: [facility] Address: [address] [place] [address] Performed By: #### 5 7021-8 #### [facility] CLIA [id number] [address] [place] [address] [place] Lymphocytes (Bld) [#/Vol] 2.03 10*3/uL Normal 1.00-4.00 [facility] Comment on above: Order Comment: Speci men Type: BLOOD SPECIMEN Ordering Facility: [facility] Address: [address] [place] [address] Performed By: #### 5 7021-8 #### [facility] CLIA [id number] [address] [place] [address] [place] Lymphocytes/100 WBC (Bld) 29.7 % Normal [facility] Comment on above: Order Comment: Speci men Type: BLOOD SPECIMEN Ordering Facility: [facility] Address: [address] [place] [address] Performed By: #### 5 7021-8 #### [facility] CLIA [id number] [address] [place] [address] [place] MCH (RBC) [Entitic mass] 28.5 pg Normal 26.0-34.0 [facility] Comment on above: Order Comment: Speci men Type: BLOOD SPECIMEN Ordering Facility: [facility] Address: [address] [place] [address] Performed By: #### 5 7021-8 #### [facility] CLIA [id number] [address] [place] [address] [place] MCHC (RBC) [Mass/Vol] 32.3 g/dL Normal 30.5-36.0 [facility] Comment on above: Order Comment: Speci men Type: BLOOD SPECIMEN Ordering Facility: [facility] Address: [address] [place] [address] Performed By: #### 5 7021-8 #### [facility] CLIA [id number] [address] [place] [address] [place] MCV (RBC) [Entitic vol] 88.4 fL Normal 80.0-100.0 C [facility] Comment on above: Order Comment: Speci men Type: BLOOD SPECIMEN Ordering Facility: [facility] Address: [address] [place] [address] Performed By: #### 5 7021-8 #### [facility] CLIA [id number] [address] [place] [address] [place] Monocytes (Bld) [#/Vol] 0.47 10*3/uL Normal <0.87 [facility] Comment on above: Order Comment: Speci men Type: BLOOD SPECIMEN Ordering Facility: [facility] Address: [address] [place], [place] [id number] Performed By: #### 5 7021-8 #### [facility] CLIA [id number] [address] [place] [address] [place] Monocytes/100 WBC (Bld) 6.9 % Normal [facility] Comment on above: Order Comment: Speci men Type: BLOOD SPECIMEN Ordering Facility: [facility] Address: [address] [place], [place] [id number] Performed By: #### 5 7021-8 #### [facility] CLIA [id number] [address] [place] [address] [place] Neutrophils (Bld) [#/Vol] 3.96 10*3/uL Normal 1.45-7.50 [facility] Comment on above: Order Comment: Speci men Type: BLOOD SPECIMEN Ordering Facility: [facility] Address: [address] [place], [place] [id number] Performed By: #### 5 7021-8 #### [facility] CLIA [id number] [address] [place] [address] [place] Neutrophils/100 WBC (Bld) 57.9 % Normal [facility] Comment on above: Order Comment: Speci men Type: BLOOD SPECIMEN Ordering Facility: [facility] Address: [address] Performed By: #### 5 7021-8 #### [facility] CLIA [id number] [address] [place] [address] [place] Nucleated RBC (Bld) [#/Vol] 10*3/uL Normal <0.01 [facility] Comment on above: Order Comment: Speci men Type: BLOOD SPECIMEN Ordering Facility: [facility] Address: [address] [place], [place] [address] Performed By: #### 5 7021-8 #### [facility] CLIA [id number] [address] [place] [address] [place] Nucleated RBC/100 WBC (Bld) [Ratio] 0.0 /100 WBC Normal [facility] Comment on above: Order Comment: Speci men Type: BLOOD SPECIMEN Ordering Facility: [facility] Address: [address] [place], [place] [id number] Performed By: #### 5 7021-8 #### [facility] CLIA [id number] [address] [place] [address] [place] Platelet mean volume (Bld) [Entitic vol] 10.0 fL Normal 9.0-12.7 [facility] Comment on above: Order Comment: Speci men Type: BLOOD SPECIMEN Ordering Facility: [facility] Address: [address] [place], [place] [phone] Performed By: #### 5 7021-8 #### [facility] CLIA [id number] [address] [place] [address] [place] Platelets (Bld) [#/Vol] 246 10*3/uL Normal 150-400 [facility] Comment on above: Order Comment: Speci men Type: BLOOD SPECIMEN Ordering Facility: [facility] Address: [address] [place], [place] [id number] Performed By: #### 5 7021-8 #### [facility] CLIA [id number] [address] [place] [address] [place] RBC (Bld) [#/Vol] 4.21 10*6/uL Normal 3.90-5.20 [facility] Comment on above: Order Comment: Speci men Type: BLOOD SPECIMEN Ordering Facility: [facility] Address: [address] [place], [place] [phone] Performed By: #### 5 7021-8 #### [facility] CLIA [id number] [address] [place] [address] [place] WBC (Bld) [#/Vol] 6.84 10*3/uL Normal 3.70-11.00 [facility] Comment on above: Order Comment: Speci men Type: BLOOD SPECIMEN Ordering Facility: [facility] Address: [facility] [place] [address] Performed By: #### 5 7021-8 #### [facility] CLIA [id number] [address] [id number] [place] CNOVSPon 05-07-2022 CNOVSP Visit (SP) Office (EVELYN) OLGA DONALDSON ([id number]) 1945 F Date Time Provider Department 05/07/22 [...] an every 2-week basis for 4 cycles ([id number]). Completed a year of trastuzumab 10/17/06. Referred back or anemia. Admitted to [facility] 12/02/2019 for chest pain with ambulation. [...] 1.00 - 4.00 k/uL 2.70 2.30 2.03 [place]% % 7.0 6.6 6.9 Abs [place] <0.87 k/uL 0.49 0.47 0.47 Eosin% % 4.9 3.2 4.7 Abs Eosin <0.46 k/uL 0.34 0.23 0.32 Baso% % 0.7 0.6 0.7 Abs Baso <0.11 k/uL 0.05 0.04 0.05 Immature (more content not included)... Normal [facility] Ferritin SerPl-mCncon 2021 Ferritin [Mass/Vol] 808.0 ng/mL High 14.7-205.1 [facility] Comment on above: Order Comment: Speci men Type: BLOOD SPECIMEN Ordering Facility: [facility] Address: [address] [place] [address] Performed By: #### 5 0190-8, 2276-4 #### [facility] CLIA [id number] [address] [place] [address] [place] Iron and Iron binding capaci ty panelon 05-07-2022 Iron [Mass/Vol] 38 ug/dL Low 41-186 [facility] Comment on above: Order Comment: Speci men Type: BLOOD SPECIMEN Ordering Facility: [facility] Address: [address] [place] [address] Performed By: #### 5 0190-8, 6-4 #### [facility] CLIA [id number] [address] [place] [address] [place] Iron binding capacity [Mass/Vol] 240 ug/dL Normal 232-386 [facility] Comment on above: Order Comment: Speci men Type: BLOOD SPECIMEN Ordering Facility: [facility] Address: [address] [place] [address] Performed By: #### 5 0190-8, 6-4 #### [facility] CLIA [id number] [address] [place] [address] [place] Iron/TIBC [Molar ratio] 15.8 % Normal 15.0-57.0 [facility] Comment on above: Order Comment: Speci men Type: BLOOD SPECIMEN Ordering Facility: [facility] Address: [address] [place], [place] [phone] Performed By: #### 5 0190-8, 2276-4 #### [facility] CLIA [id number] [address] [place] [address] OF [place] [facility] Justine 02-10-2022 [place] Telephone (EVELYN) OLGA DONALDSON ([id number]) 1945 F Date Time Provider Department 02/10/22 [...] Date Reviewed: 05/07/2021 Reviewed by: 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 APRN.COOKER SULFATE - Fully Assessed Reason for Visit: Results [...] MIST) 0.65 % nasal spray Use 1 [place] in the nose as needed. - diltiazem [...] by STACIE VARNER LPN on 02/10/22 Normal [facility] CBC W Auto Differential pane l (Bld)on 02-03-2022 Basophils (Bld) [#/Vol] 0.04 10*3/uL Normal <0.11 [facility] Comment on above: Order Comment: Speci men Type: BLOOD SPECIMEN Ordering Facility: [facility] Address: [address] [place] [address] Performed By: #### 5 7021-8 #### [facility] CLIA [id number] [address] [place] [address] [place] Basophils/100 WBC (Bld) 0.6 % Normal [facility] Comment on above: Order Comment: Speci men Type: BLOOD SPECIMEN Ordering Facility: [facility] Address: [address] [place] [address] Performed By: #### 5 7021-8 #### [facility] CLIA [id number] [address] [place] [address] [place] Differential cell count method Nom (Bld) Auto Normal [facility] Comment on above: Order Comment: Speci men Type: BLOOD SPECIMEN Ordering Facility: [facility] Address: [address] [address] Performed By: #### 5 7021-8 #### [facility] CLIA [id number] [address] [place] [address] [place] Eosinophils (Bld) [#/Vol] 0.23 10*3/uL Normal <0.46 [facility] Comment on above: Order Comment: Speci men Type: BLOOD SPECIMEN Ordering Facility: [facility] Address: [address] [address] Performed By: #### 5 7021-8 #### [facility] CLIA [id number] [address] [place] [address] [place] Eosinophils/100 WBC (Bld) 3.2 % Normal [facility] Comment on above: Order Comment: Speci men Type: BLOOD SPECIMEN Ordering Facility: [facility] Address: [address] [place] [address] Performed By: #### 5 7021-8 #### [facility] CLIA [id number] [address] [place] [address] [place] Erythrocyte distribution width (RBC) [Ratio] 14.3 % Normal 11.5-15.0 [facility] Comment on above: Order Comment: Speci men Type: BLOOD SPECIMEN Ordering Facility: [facility] Address: [address] [place] [address] Performed By: #### 5 7021-8 #### [facility] CLIA [id number] [address] [place] [address] [place] Hematocrit (Bld) [Volume fraction] 39.7 % Normal 36.0-46.0 [facility] Comment on above: Order Comment: Speci men Type: BLOOD SPECIMEN Ordering Facility: [facility] Address: [address] [place] [address] Performed By: #### 5 7021-8 #### [facility] CLIA [id number] [address] [place] [address] [place] Hemoglobin (Bld) [Mass/Vol] 12.8 g/dL Normal 11.5-15.5 [facility] Comment on above: Order Comment: Speci men Type: BLOOD SPECIMEN Ordering Facility: [facility] Address: [address] [place], [place] [phone] Performed By: #### 5 7021-8 #### [facility] CLIA [id number] [address] [place] [address] [place] IMMATURE GRAN % 0.3 % Normal [facility] Comment on above: Order Comment: Speci men Type: BLOOD SPECIMEN Ordering Facility: [facility] Address: [address] [place] [address] Performed By: #### 5 7021-8 #### [facility] CLIA [id number] [address] [place] [address] [place] IMMATURE GRAN ABS <0.03 Normal <0.10 [facility] Comment on above: Order Comment: Speci men Type: BLOOD SPECIMEN Ordering Facility: [facility] Address: [address] [place] [address] Performed By: #### 5 7021-8 #### [facility] CLIA [id number] [address] [place] [address] [place] Lymphocytes (Bld) [#/Vol] 2.30 10*3/uL Normal 1.00-4.00 [facility] Comment on above: Order Comment: Speci men Type: BLOOD SPECIMEN Ordering Facility: [facility] Address: [address] [place] [address] Performed By: #### 5 7021-8 #### [facility] CLIA [id number] [address] [place] [address] [place] Lymphocytes/100 WBC (Bld) 32.1 % Normal [facility] Comment on above: Order Comment: Speci men Type: BLOOD SPECIMEN Ordering Facility: [facility] Address: [address] [place] [address] Performed By: #### 5 7021-8 #### [facility] CLIA [id number] [address] [place] [address] [place] MCH (RBC) [Entitic mass] 28.8 pg Normal 26.0-34.0 [facility] Comment on above: Order Comment: Speci men Type: BLOOD SPECIMEN Ordering Facility: [facility] Address: [address] [place], [place] [phone] Performed By: #### 5 7021-8 #### [facility] CLIA [id number] [address] [place] [address] MCHC (RBC) [Mass/Vol] 32.2 g/dL Normal 30.5-36.0 [facility] Comment on above: Order Comment: Speci men Type: BLOOD SPECIMEN Ordering Facility: [facility] Address: [address] [place] [address] Performed By: #### 5 7021-8 #### [id number] [address] [place] [address] [place] MCV (RBC) [Entitic vol] 89.4 fL Normal 80.0-100.0 [facility] Comment on above: Order Comment: Speci men Type: BLOOD SPECIMEN Ordering Facility: [facility] Address: [address] [place] [address] Performed By: #### 5 7021-8 #### [facility] [id number] [address] [place] [address] [place] Monocytes (Bld) [#/Vol] 0.47 10*3/uL Normal <0.87 [facility] Comment on above: Order Comment: Speci men Type: BLOOD SPECIMEN Ordering Facility: [facility] Address: [address] [place], [place] [phone] Performed By: #### 5 7021-8 #### [facility] CLIA [id number] [address] [place] [address] [place] Monocytes/100 WBC (Bld) 6.6 % Normal [facility] Comment on above: Order Comment: Speci men Type: BLOOD SPECIMEN Ordering Facility: [facility] Address: [address] [place], [place] [phone] Performed By: #### 5 7021-8 #### [facility] CLIA [id number] [address] [place] [address] [place] Neutrophils (Bld) [#/Vol] 4.11 10*3/uL Normal 1.45-7.50 [facility] Comment on above: Order Comment: Speci men Type: BLOOD SPECIMEN Ordering Facility: [facility] Address: [address] [place] [address] Performed By: #### 5 7021-8 #### [facility] CLIA [id number] [address] [place] [address] [place] Neutrophils/100 WBC (Bld) 57.2 % Normal [facility] Comment on above: Order Comment: Speci men Type: BLOOD SPECIMEN Ordering Facility: [facility] Address: [address] [place] [address] Performed By: #### 5 7021-8 #### [facility] CLIA [id number] [address] [place] [address] [place] Nucleated RBC (Bld) [#/Vol] 10*3/uL Normal <0.01 [facility] Comment on above: Order Comment: Speci men Type: BLOOD SPECIMEN Ordering Facility: [facility] Address: [address] [place] [address] Performed By: #### 5 7021-8 #### [facility] CLIA [id number] [address] [place] [address] [place] Nucleated RBC/100 WBC (Bld) [Ratio] 0.0 /100 WBC Normal [facility] Comment on above: Order Comment: Speci men Type: BLOOD SPECIMEN Ordering Facility: [facility] Address: [address] [place] [address] Performed By: #### 5 7021-8 #### [facility] CLIA [id number] [address] [place] [address] [place] Platelet mean volume (Bld) [Entitic vol] 10.3 fL Normal 9.0-12.7 [facility] Comment on above: Order Comment: Speci men Type: BLOOD SPECIMEN Ordering Facility: [facility] Address: [address] [place] [address] Performed By: #### 5 7021-8 #### [facility] CLIA [id number] [address] [place] [address] [place] Platelets (Bld) [#/Vol] 265 10*3/uL Normal 150-400 [facility] Comment on above: Order Comment: Speci men Type: BLOOD SPECIMEN Ordering Facility: [facility] Address: [address] [place] [address] Performed By: #### 5 7021-8 #### [facility] CLIA [id number] [address] [place] [address] [place] RBC (Bld) [#/Vol] 4.44 10*6/uL Normal 3.90-5.20 [facility] Comment on above: Order Comment: Speci men Type: BLOOD SPECIMEN Ordering Facility: [facility] Address: [address] [place] [address] Performed By: #### 5 7021-8 #### [facility] CLIA [id number] [address] [place] [address] [place] WBC (Bld) [#/Vol] 7.17 10*3/uL Normal 3.70-11.00 [facility] Comment on above: Order Comment: Speci men Type: BLOOD SPECIMEN Ordering Facility: [facility] Address: [address] [place], [place] [phone] Performed By: #### 5 7021-8 #### [facility] CLIA [id number] [address] [place] [address] [place] FERRITIN BLDon 02-03-2022 Ferritin [Mass/Vol] 1132.0 ng/mL High 14.7-205.1 [facility] Comment on above: Order Comment: Speci men Type: BLOOD SPECIMEN Ordering Facility: [facility] Address: [address] [place] [address] Performed By: #### F ERR, IRON #### [facility] CLIA [id number] [address] [place] [address] [place] IRON + TIBCon 02-03-2022 Iron [Mass/Vol] 66 ug/dL Normal 41-186 [facility] Comment on above: Order Comment: Speci men Type: BLOOD SPECIMEN Ordering Facility: [facility] Address: [address] [place] [address] Performed By: #### F ERR, IRON #### [facility] CLIA [id number] [address] [place] [address] [place] Iron binding capacity [Mass/Vol] 286 ug/dL Normal 232-386 [facility] Comment on above: Order Comment: Speci men Type: BLOOD SPECIMEN Ordering Facility: [facility] Address: [address] [place] [address] Performed By: #### F ERR, IRON #### [facility] CLIA [id number] [address] [place] [address] [place] Iron/TIBC [Molar ratio] 23 % Normal 15-57 C [facility] Comment on above: Order Comment: Speci men Type: BLOOD SPECIMEN Ordering Facility: [facility] Address: [address] [place] [address] Performed By: #### F ERR, IRON #### [facility] CLIA [id number] [address] [place] [address] [place] Bacteria identified Anaer cx Nom (Unsp spec)on 12-02-2021 Anaerobic microbial culture No anaerobic bacteria isolated. [facility] Work Phone: Bacteria identified Cx Nom ( Wound)on 12-02-2021 Wound Culture Negative [facility] Work Phone: Wound Culture Staphylococcus epidermidis [facility] Work Phone: Wound Culture Corynebacterium striatum [facility] Work Phone: Gram stain for investigation of transfusion reactionon 12-02-2021 Microscopic observation Gram stain Nom (Unsp spec) [facility] Work Phone: CBC W Auto Differential pane l (Bld)on 11-04-2021 Basophils (Bld) [#/Vol] 0.05 10*3/uL Normal <0.11 [facility] Comment on above: Order Comment: Speci men Type: BLOOD SPECIMEN Ordering Facility: [facility] Address: [address] [place] [address] Performed By: #### 5 7021-8 #### [facility] CLIA [id number] [address] [place] [address] [place] Basophils/100 WBC (Bld) 0.7 % Normal [facility] Comment on above: Order Comment: Speci men Type: BLOOD SPECIMEN Ordering Facility: [facility] Address: [address] [place] [address] Performed By: #### 5 7021-8 #### [facility] CLIA [id number] [address] [place] [address] [place] Differential cell count method Nom (Bld) Auto Normal [facility] Comment on above: Order Comment: Speci men Type: BLOOD SPECIMEN Ordering Facility: [facility] Address: [address] [address] Performed By: #### 5 7021-8 #### [facility] CLIA [id number] [address] [place] [address] [place] Eosinophils (Bld) [#/Vol] 0.34 10*3/uL Normal <0.46 [facility] Comment on above: Order Comment: Speci men Type: BLOOD SPECIMEN Ordering Facility: [facility] Address: [address] [address] Performed By: #### 5 7021-8 #### [facility] CLIA [id number] [address] [place] [address] [place] Eosinophils/100 WBC (Bld) 4.9 % Normal [facility] Comment on above: Order Comment: Speci men Type: BLOOD SPECIMEN Ordering Facility: [facility] Address: [address] [place], [place] [phone] Performed By: #### 5 7021-8 #### [facility] CLIA [id number] [address] [place] [address] [place] Erythrocyte distribution width (RBC) [Ratio] 13.3 % Normal 11.5-15.0 [facility] Comment on above: Order Comment: Speci men Type: BLOOD SPECIMEN Ordering Facility: [facility] Address: [address] [place] [address] Performed By: #### 5 7021-8 #### [facility] CLIA [id number] [address] [place] [address] [place] Hematocrit (Bld) [Volume fraction] 40.4 % Normal 36.0-46.0 [facility] Comment on above: Order Comment: Speci men Type: BLOOD SPECIMEN Ordering Facility: [facility] Address: [address] [place], [place] [phone] Performed By: #### 5 7021-8 #### [facility] CLIA [id number] [address] [place] [address] [place] Hemoglobin (Bld) [Mass/Vol] 12.9 g/dL Normal 11.5-15.5 [facility] Comment on above: Order Comment: Speci men Type: BLOOD SPECIMEN Ordering Facility: [facility] Address: [address] [place], [place] [phone] Performed By: #### 5 7021-8 #### [facility] CLIA [id number] [address] [place] IMMATURE GRAN % 0.1 % Normal [facility] Comment on above: Order Comment: Speci men Type: BLOOD SPECIMEN Ordering Facility: [facility] Address: [address] [place] [address] Performed By: #### 5 7021-8 #### [facility] CLIA [id number] [address] [place] [address] [place] IMMATURE GRAN ABS <0.03 Normal <0.10 [facility] Comment on above: Order Comment: Speci men Type: BLOOD SPECIMEN Ordering Facility: [facility] Address: [address] [place] [address] Performed By: #### 5 7021-8 #### [facility] CLIA [id number] [address] [place] [address] [place] Lymphocytes (Bld) [#/Vol] 2.70 10*3/uL Normal 1.00-4.00 [facility] Comment on above: Order Comment: Speci men Type: BLOOD SPECIMEN Ordering Facility: [facility] Address: [address] [place] [address] Performed By: #### 5 7021-8 #### [facility] CLIA [id number] [address] [place] [address] [place] Lymphocytes/100 WBC (Bld) 38.6 % Normal [facility] Comment on above: Order Comment: Speci men Type: BLOOD SPECIMEN Ordering Facility: [facility] Address: [address] [place] [address] Performed By: #### 5 7021-8 #### [facility] CLIA [id number] [address] [place] [address] [place] MCH (RBC) [Entitic mass] 28.9 pg Normal 26.0-34.0 [facility] Comment on above: Order Comment: Speci men Type: BLOOD SPECIMEN Ordering Facility: [facility] Address: [address] [place], [place] [phone] Performed By: #### 5 7021-8 #### [facility] CLIA [id number] [address] [place] [address] MCHC (RBC) [Mass/Vol] 31.9 g/dL Normal 30.5-36.0 [facility] Comment on above: Order Comment: Speci men Type: BLOOD SPECIMEN Ordering Facility: [facility] Address: [address] [place], [place] [phone] Performed By: #### 5 7021-8 #### [id number] [address] [place] [address] [place] MCV (RBC) [Entitic vol] 90.4 fL Normal 80.0-100.0 C [facility] Comment on above: Order Comment: Speci men Type: BLOOD SPECIMEN Ordering Facility: [facility] Address: [address] [place] [address] Performed By: #### 5 7021-8 #### [facility] [id number] [address] [place] [address] [place] Monocytes (Bld) [#/Vol] 0.49 10*3/uL Normal <0.87 [facility] Comment on above: Order Comment: Speci men Type: BLOOD SPECIMEN Ordering Facility: [facility] Address: [address] [place], [place] [phone] Performed By: #### 5 7021-8 #### [facility] CLIA [id number] [address] [place] [address] Monocytes/100 WBC (Bld) 7.0 % Normal [facility] Comment on above: Order Comment: Speci men Type: BLOOD SPECIMEN Ordering Facility: [facility] Address: [address] [place], [place] [phone] Performed By: #### 5 7021-8 #### [facility] CLIA [id number] [address] [place] [address] [place] Neutrophils (Bld) [#/Vol] 3.40 10*3/uL Normal 1.45-7.50 [facility] Comment on above: Order Comment: Speci men Type: BLOOD SPECIMEN Ordering Facility: [facility] Address: [address] [place] [address] Performed By: #### 5 7021-8 #### [facility] CLIA [id number] [address] [place] [address] [place] Neutrophils/100 WBC (Bld) 48.7 % Normal [facility] Comment on above: Order Comment: Speci men Type: BLOOD SPECIMEN Ordering Facility: [facility] Address: [address] [place] [address] Performed By: #### 5 7021-8 #### [facility] CLIA [id number] [address] [place] [address] [place] Nucleated RBC (Bld) [#/Vol] 10*3/uL Normal <0.01 [facility] Comment on above: Order Comment: Speci men Type: BLOOD SPECIMEN Ordering Facility: [facility] Address: [address] [place] [address] Performed By: #### 5 7021-8 #### [facility] CLIA [id number] [address] [place] [address] [place] Nucleated RBC/100 WBC (Bld) [Ratio] 0.0 /100 WBC Normal [facility] Comment on above: Order Comment: Speci men Type: BLOOD SPECIMEN Ordering Facility: [facility] Address: [address] [place], [place] [phone] Performed By: #### 5 7021-8 #### [facility] CLIA [id number] [address] [place] [address] [place] Platelet mean volume (Bld) [Entitic vol] 10.1 fL Normal 9.0-12.7 [facility] Comment on above: Order Comment: Speci men Type: BLOOD SPECIMEN Ordering Facility: [facility] Address: [address] [place], [place] [phone] Performed By: #### 5 7021-8 #### [facility] CLIA [id number] [address] [place] [address] [place] Platelets (Bld) [#/Vol] 246 10*3/uL Normal 150-400 [facility] Comment on above: Order Comment: Speci men Type: BLOOD SPECIMEN Ordering Facility: [facility] Address: [address] [place], [place] [phone] Performed By: #### 5 7021-8 #### [facility] CLIA [id number] [address] [place] [address] [place] RBC (Bld) [#/Vol] 4.47 10*6/uL Normal 3.90-5.20 [facility] Comment on above: Order Comment: Speci men Type: BLOOD SPECIMEN Ordering Facility: [facility] Address: [address] [place], [place] [phone] Performed By: #### 5 7021-8 #### [facility] CLIA [id number] [address] [place] [address] [place] WBC (Bld) [#/Vol] 6.99 10*3/uL Normal 3.70-11.00 [facility] Comment on above: Order Comment: Speci men Type: BLOOD SPECIMEN Ordering Facility: [facility] Address: [address] [place], [place] [phone] Performed By: #### 5 7021-8 #### [facility] CLIA [id number] [address] [place] [address] [place] FERRITIN BLDon 11-04-2021 Ferritin [Mass/Vol] 1428.0 ng/mL High 14.7-205.1 [facility] Comment on above: Order Comment: Speci men Type: BLOOD SPECIMEN Ordering Facility: [facility] Address: [address] [place] [address] Performed By: #### Elise RUSH FERR #### [facility] CLIA [id number] [address] [place] [address] [place] IRON + TIBCon 11-04-2021 Iron [Mass/Vol] 60 ug/dL Normal 41-186 [facility] Comment on above: Order Comment: Speci men Type: BLOOD SPECIMEN Ordering Facility: [facility] Address: [address] [place] [address] Performed By: #### Elise RUSH FERR #### [facility] CLIA [id number] [address] [place] [address] OF [facility] Iron binding capacity [Mass/Vol] 242 ug/dL Normal 232-386 [facility] Comment on above: Order Comment: Speci men Type: BLOOD SPECIMEN Ordering Facility: [facility] Address: [address] [place] [address] Performed By: #### Elise RUSH, FERR #### [facility] CLIA [id number] [address] [place] [address] Iron/TIBC [Molar ratio] 25 % Normal 15-57 C [facility] Comment on above: Order Comment: Speci men Type: BLOOD SPECIMEN Ordering Facility: [facility] Address: [address] [place] [address] Performed By: #### Elise RUSH FERR #### [facility] CLIA [id number] [address] [place] [address] [place] Justine 09-29-2021 JOCELYNE Telephone (HEMAWS) OLGA DONALDSON ([id number]) 1945 F Date Time Provider Department 09/29/21 [...] Date Reviewed: 05/07/2021 Reviewed by: 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 APRN.COOKER SULFATE - Fully Assessed Reason for Visit: Results [95] Follow Up [171] Primary Visit Diagnosis:Anemia, unspecified type [D64.9] Order(s):CBC + DIFF [SQCBCDIF] Order #: [id number] FUTURE COMP METABOLIC PANEL [SQCMP] Order #: [id number] FUTURE PROTEIN ELECTROPHORESIS SERUM W/INTERP [SQSEPG] Order #: [id number] FUTURE MONOCLONAL PROTEIN, SERUM (BLOOD) [SQSERMPA] Order #: [id number] FUTURE Prescriptions as of 04/12/2022 - ascorbic [...] MIST) 0.65 % nasal spray Use 1 [place] in the nose as needed. - diltiazem [...] Specified Conge (more content not included)... Normal [facility] Justine 05-09-2021 MAR[place] Telephone (EVELYN) OLGA DONALDSON ([id number]) 1945 F Date Time Provider Department 05/09/21 [...] Date Reviewed: 05/07/2021 Reviewed by: 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 APRN.COOKER SULFATE - Fully Assessed Reason for Visit: Results [...] MIST) 0.65 % nasal spray Use 1 [place] in the nose as needed. - diltiazem [...] by STACIE VARNER LPN on 05/09/21 Normal [facility] - Specimen inform ationon 03-27-2021 Specimen source Nom (Unsp spec) Stool [facility] No Panel Informationon 03-27 Occult Blood Diagnostic Positive [facility] FERRITIN BLDon 03-22-2021 Ferritin [Mass/Vol] 1064.0 ng/mL High 14.7 - 2 05.1 ng/mL [facility] CULTURE FUNGUSon 02-08-2018 CULTURE FUNGUS 1 Organism Nithya albicans Many Normal [facility] Comment on above: Performed By: #### C /FUN, S/FUN ####[facility] [id number] [place] [id number] STAIN FUNGUSon 01-19-2018 STAIN FUNGUS STAIN FUNGUS --> Status: F 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 Direct exam by Calcofluor stain. Direct exam by Calcofluor stain. Normal [facility] Comment on above: Performed By: #### C /FUN, S/FUN ####[facility] [id number] [place] [address] Office Visit: Consult- Romero mina 01-13-2017 Adolescent depression screening assessment Adolescent depression screening assessment Invalid Interpretation Code [facility] Work Phone: [phone] Adult depression screening assessment Adolescent depression screening assessment [facility] Work Phone: [phone] Documentation of current medications (procedure) Done Invalid Interpretation Code [facility] Work Phone: [phone] Fall risk assessment Fall risk assessment [facility] Work Phone: [phone] Tobacco smoking status NHIS Never [facility] Work Phone: [phone] Tobacco smoking status NHIS Former smoker [facility] Work Phone: [phone] Tobacco use CPHS Former smoker Invalid Interpretation Code [facility] Work Phone: [phone] Clinical Lists Update: 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 Left ventricular Ejection fraction 70 % [facility] Work Phone: [phone] Office Visiton 08-29-2015 cardiac risk group [facility] Work Phone: [phone] General cardiovascular disease 10Y risk [#] Emerado.D'Agostino Not enough information [facility] Work Phone: [phone] Replaced Document: Midmark E CG Observationson 08-29-2015 EKG QRS axis 29 deg [facility] Work Phone: [phone] electrocardiogram interpretation Sinus Tachycardia -With rate variation cv = 10.WITHIN NORMAL LIMITS Invalid Interpretation Code [facility] Work Phone: [phone] GE use only - for LinkLogic import when terms are not otherwise specified 411 ms Invalid Interpretation Code [facility] Work Phone: [phone] Interpretation Sinus Tachycardia -With rate variation cv = 10.WITHIN NORMAL LIMITS [facility] Work Phone: [phone] P [place] 41 deg [facility] Work Phone: [phone] P wave axis, electrocardiogram 41 deg Invalid Interpretation Code [facility] Work Phone: [phone] OH Interval 134 ms [facility] Work Phone: [phone] OH interval, electrocardiogram 134 ms Invalid Interpretation Code [facility] Work Phone: [phone] Pulse (Heart Rate) 109 /min Invalid Interpretation Code [facility] Work Phone: [phone] QRS axis, electrocardiogram 29 deg Invalid Interpretation Code [facility] Work Phone: [phone] QRS Duration 80 ms [facility] Work Phone: [phone] QRS duration, electrocardiogram 80 ms Invalid Interpretation Code [facility] Work Phone: [phone] QT Interval new path ms [facility] Work Phone: [phone] QT interval, electrocardiogram new path ms Invalid Interpretation Code [facility] Work Phone: [phone] QTc Carney 411 ms [facility] Work Phone: [phone] T [place] 37 deg [facility] Work Phone: [phone] T wave axis, electrocardiogram 37 deg Invalid Interpretation Code [facility] Work Phone: [phone] Bacteria identified Anaer cx Nom (Unsp spec) Anaerobic microbial culture No anaerobic bacteria isolated. [facility] Work Phone: Bacteria identified Cx Nom ( Wound) Wound Culture Negative [facility] Work Phone: [phone] Wound Culture Staphylococcus epidermidis [facility] Work Phone: Wound Culture Corynebacterium striatum [facility] Work Phone: Culture, urine Bacteria identified Cx Nom (U) Klebsiella pneumoniae sp pneum [facility] Work Phone: Gram stain for investigation of transfusion reaction Microscopic observation Gram stain Nom (Unsp spec) [facility] Work Phone: Vital Signs Date Time Vital Sign Value Performing Clinician Facility 03-25-2025 13:49-0400 Body temperature 98.9 [degF] Dr. Ramone Smiley MD Work Phone: 6(732)353-575135 [place] [address] 03-25-2025 13:49-0400 Diastolic blood pressure 60 mm[Hg] Dr. Ramone Smiley MD Work Phone: 2(670)400-115535 [place] [address] 03-25-2025 13:49-0400 Heart rate 102 /min Dr. Ramone Smiley MD Work Phone: 3(813)875-466235 [place] [address] 03-25-2025 13:49-0400 Inhaled oxygen flow rate 2 L/min Dr. Ramone Smiley MD Work Phone: 9(159)334-989835 [place] [address] 03-25-2025 13:49-0400 Respiratory rate 16 /min Dr. Ramone Smiley MD Work Phone: 7(136)362-834035 [place] [address] 03-25-2025 13:49-0400 SaO2% (BldA) [Mass fraction] 100 % Dr. Ramone Smiley MD Work Phone: 0(462)023-070235 [place] [address] 03-25-2025 13:49-0400 Systolic blood pressure 136 mm[Hg] Dr. Ramone Smiley MD Work Phone: 7(063)922-316935 [place] [address] 03-25-2025 03:15-0400 Body mass index (BMI) [Ratio] 30.4 kg/m2 Dr. Ramone Smiley MD Work Phone: 4(055)747-107235 [place] [address] 03-25-2025 03:15-0400 Body weight 77.[address] Ramone Smiley MD Work Phone: 8(917)575-970235 [place] [address] 03-24-2025 14:00-0400 Body height 160.[address] Ramone Smiley MD Work Phone: 9(228)482-211335 [place] [address] 03-21-2025 22:28-0400 Body temperature 98.4 [degF] Dr. Ramone Smiley MD Work Phone: 3(285)602-308435 [place] [address] 03-21-2025 22:28-0400 Diastolic blood pressure 81 mm[Hg] Dr. Ramone Smiley MD Work Phone: 7(212)282-326935 [place] [address] 03-21-2025 22:28-0400 Heart rate 86 /min Dr. Ramone Smiley MD Work Phone: 0(790)464-032735 [place] [address] 03-21-2025 22:28-0400 Respiratory rate 19 /min Dr. Ramone Smiley MD Work Phone: 7(848)719-610335 [place] [address] 03-21-2025 22:28-0400 SaO2% (BldA) [Mass fraction] 94 % Dr. Ramone Smiley MD Work Phone: 3(166)127-015135 [place] [address] 03-21-2025 22:28-0400 Systolic blood pressure 136 mm[Hg] Dr. Ramone Smiley MD Work Phone: 3(880)942-981635 [place] [address] 03-21-2025 21:00-0400 Inhaled oxygen flow rate 2 L/min Dr. Ramone Smiley MD Work Phone: 7(114)926-140035 [place] [address] 03-21-2025 13:31-0400 Body mass index (BMI) [Ratio] 27.6 kg/m2 Dr. Ramone Smiley MD Work Phone: 4(067)230-752135 [place] [address] 03-21-2025 13:31-0400 Body weight 70.[address] Ramone Smiley MD Work Phone: 7(632)909-532935 [place] [address] 03-21-2025 13:23-0400 Body height 160.[address] Ramone Smiley MD Work Phone: 7(839)975-800635 [place] [address] 03-04-2025 23:10-0400 Body temperature 98 [degF] Dr. Ramone Smiley MD Work Phone: 2(880)960-450235 [place] [address] 03-04-2025 23:10-0400 Diastolic blood pressure 80 mm[Hg] Dr. Ramone Smiley MD Work Phone: 7(292)405-934435 [place] [address] 03-04-2025 23:10-0400 Heart rate 81 /min Dr. Ramone Smiley MD Work Phone: 1(806)136-414635 [place] [address] 03-04-2025 23:10-0400 Respiratory rate 16 /min Dr. Ramone Smiley MD Work Phone: 0(346)162-838035 [place] [address] 03-04-2025 23:10-0400 SaO2% (BldA) [Mass fraction] 95 % Dr. Ramone Smiley MD Work Phone: 4(039)921-394335 [place] [address] 03-04-2025 23:10-0400 Systolic blood pressure 135 mm[Hg] Dr. Ramone Smiley MD Work Phone: 5(441)513-936335 [place] [address] 03-04-2025 19:04-0400 Inhaled oxygen flow rate 2 L/min Dr. Ramone Smiley MD Work Phone: 4(897)868-644735 [place] [address] 03-04-2025 18:54-0400 Body mass index (BMI) [Ratio] 28 kg/m2 Dr. Ramone Smiley MD Work Phone: 0(255)654-492435 [place] [address] 03-04-2025 18:54-0400 Body weight 71.[address] Ramone Smiley MD Work Phone: 3(074)736-037135 [place] [address] 03-04-2025 18:37-0400 Body height 160.[address] Ramone Smiley MD Work Phone: 0(914)408-147335 [place] [address] 02-19-2025 00:38-0400 Body temperature 98.7 [degF] Dr. Ramone Smiley MD Work Phone: 0(172)759-917735 [place] [address] 02-19-2025 00:38-0400 Diastolic blood pressure 86 mm[Hg] Dr. Ramone Smiley MD Work Phone: 8(622)026-395435 [place] [address] 02-19-2025 00:38-0400 Heart rate 98 /min Dr. Ramone Smiley MD Work Phone: 8(844)382-539235 [place] [address] 02-19-2025 00:38-0400 Respiratory rate 22 /min Dr. Ramone Smiley MD Work Phone: 8(447)908-526035 [place] [address] 02-19-2025 00:38-0400 SaO2% (BldA) [Mass fraction] 98 % Dr. Ramone Smiley MD Work Phone: 9(535)325-530035 [place] [address] 02-19-2025 00:38-0400 Systolic blood pressure 122 mm[Hg] Dr. Ramone Smiley MD Work Phone: 5(976)658-324935 [place] [address] 02-19-2025 00:23-0400 Inhaled oxygen flow rate 2 L/min Dr. Ramone Smiley MD Work Phone: [facility] 02-18-2025 20:51-0400 Body height 160.[address] Ramone Smiley MD Work Phone: [facility] 02-18-2025 20:51-0400 Body mass index (BMI) [Ratio] 30.4 kg/m2 Dr. Ramone Smiley MD Work Phone: 3(334)532-890432 [place] [address] 02-18-2025 20:51-0400 Body weight 77.[address] Ramone Smiley MD Work Phone: 5(917)463-126635 [place] [address] 02-17-2025 18:40-0400 Heart rate 78 /min Dr. Ramone Smiley MD Work Phone: 3(387)265-559735 [place] [address] 02-17-2025 18:40-0400 Inhaled oxygen flow rate 2 L/min Dr. Ramone Smiley MD Work Phone: 9(329)816-356535 [place] [address] 02-17-2025 18:40-0400 Respiratory rate 18 /min Dr. Ramone Smiley MD Work Phone: 8(760)412-329535 [place] [address] 02-17-2025 18:40-0400 SaO2% (BldA) [Mass fraction] 94 % Dr. Ramone Smiley MD Work Phone: 3(998)513-864935 [place] [address] 02-17-2025 18:08-0400 Body temperature 98.9 [degF] Dr. Ramnoe Smiley MD Work Phone: 5(538)416-106832 [place] [address] 02-17-2025 18:08-0400 Diastolic blood pressure 54 mm[Hg] Dr. Ramone Smiley MD Work Phone: 6(727)756-917432 [place] [address] 02-17-2025 18:08-0400 Systolic blood pressure 137 mm[Hg] Dr. Ramone Smiley MD Work Phone: 9(084)274-397935 [place] [address] 02-17-2025 04:49-0400 Body mass index (BMI) [Ratio] 29.4 kg/m2 Dr. Ramone Smiley MD Work Phone: 5(006)679-907232 [place] [address] 02-17-2025 04:49-0400 Body weight 75.[address] Ramone Smiley MD Work Phone: 0(334)093-588432 [place] [address] 02-15-2025 15:20-0400 Body height 160.[address] Ramone Smiely MD Work Phone: 3(988)531-320035 [place] [address] 02-15-2025 13:54-0400 Body temperature 99.6 [degF] Dr. Ramone Smilye MD Work Phone: 9(863)432-210735 [place] [address] 02-15-2025 13:54-0400 Diastolic blood pressure 53 mm[Hg] Dr. Ramone Smiley MD Work Phone: 8(143)659-210735 [place] [address] 02-15-2025 13:54-0400 Heart rate 98 /min Dr. Ramone Smiley MD Work Phone: 7(273)443-002135 [place] [address] 02-15-2025 13:54-0400 Inhaled oxygen flow rate 3 L/min Dr. Ramone Smiley MD Work Phone: 0(851)333-826535 [place] [address] 02-15-2025 13:54-0400 Respiratory rate 22 /min Dr. Ramone Smiley MD Work Phone: 1(296)810-341535 [place] [address] 02-15-2025 13:54-0400 SaO2% (BldA) [Mass fraction] 98 % Dr. Ramone Smiley MD Work Phone: 6(304)652-644235 [place] [address] 02-15-2025 13:54-0400 Systolic blood pressure 110 mm[Hg] Dr. Ramone Smiley MD Work Phone: 9(248)886-849035 [place] [address] 02-15-2025 08:36-0400 Body height 160.[address] Ramone Smiley MD Work Phone: 1(110)554-202335 [place] [address] 02-15-2025 08:36-0400 Body mass index (BMI) [Ratio] 30.4 kg/m2 Dr. Ramone Smiley MD Work Phone: 1(418)714-232235 [place] [address] 02-15-2025 08:36-0400 Body weight 78.[address] Ramone Smiley MD Work Phone: 3(280)295-832835 [place] [address] 02-13-2025 16:00-0400 Inhaled oxygen flow rate 2 L/min Dr. Raomne Smiley MD Work Phone: 3(008)427-544035 [place] [address] 02-13-2025 14:04-0400 Body temperature 98.4 [degF] Dr. Ramone Smiley MD Work Phone: 3(451)019-963235 [place] [address] 02-13-2025 14:04-0400 Heart rate 94 /min Dr. Ramone Smiley MD Work Phone: 0(149)126-103735 [place] [address] 02-13-2025 14:04-0400 Respiratory rate 20 /min Dr. Ramone Smiley MD Work Phone: 2(934)235-129835 [place] [address] 02-13-2025 14:04-0400 SaO2% (BldA) [Mass fraction] 94 % Dr. Ramone Smiley MD Work Phone: 5(569)954-348435 [place] [address] 02-13-2025 08:41-0400 Diastolic blood pressure 51 mm[Hg] Dr. Ramone Smiley MD Work Phone: 9(644)214-479635 [place] [address] 02-13-2025 08:41-0400 Systolic blood pressure 132 mm[Hg] Dr. Ramone Smiley MD Work Phone: 7(721)064-578335 [place] [address] 02-10-2025 13:27-0400 Body height 160.[address] Ramone Smiley MD Work Phone: 6(250)960-987135 [place] [address] 02-10-2025 13:27-0400 Body weight 76.[address] Ramone Smiley MD Work Phone: 9(867)707-746035 [place] [address] 02-09-2025 16:43-0400 Body mass index (BMI) [Ratio] 29.9 kg/m2 Dr. Ramone Smiley MD Work Phone: 4(862)584-969635 [place] [address] 02-09-2025 15:12-0400 Inhaled oxygen flow rate 2 L/min Dr. Ramone Smiley MD Work Phone: 5(083)552-773335 [place] [address] 02-09-2025 15:12-0400 SaO2% (BldA) [Mass fraction] 91 % Dr. Ramone Smiley MD Work Phone: 6(571)604-712435 [place] [address] 02-09-2025 15:08-0400 Body temperature 99 [degF] Dr. Ramone Smiley MD Work Phone: [facility] 02-09-2025 15:08-0400 Diastolic blood pressure 46 mm[Hg] Dr. Ramone Smiley MD Work Phone: 8(935)860-968235 [place] [address] 02-09-2025 15:08-0400 Heart rate 94 /min Dr. Ramone Smiley MD Work Phone: 3(472)888-560335 [place] [address] 02-09-2025 15:08-0400 Respiratory rate 25 /min Dr. Ramone Smiley MD Work Phone: 6(908)729-053535 [place] [address] 02-09-2025 15:08-0400 Systolic blood pressure 136 mm[Hg] Dr. Ramone Smiley MD Work Phone: 5(749)506-347235 [place] [address] 02-09-2025 11:52-0400 Body height 160.[address] Ramone Smiley MD Work Phone: 3(849)944-580935 [place] [address] 02-09-2025 11:52-0400 Body mass index (BMI) [Ratio] 30.1 kg/m2 Dr. Ramone Smiley MD Work Phone: 3(813)385-302235 [place] [address] 02-09-2025 11:52-0400 Body weight 77.[address] Ramone Smiley MD Work Phone: 5(296)891-998335 [place] [address] 02-06-2025 15:38-0400 Body temperature 97.5 [degF] Dr. Ramone Smiley MD Work Phone: 4(212)916-552135 [place] [address] 02-06-2025 15:38-0400 Diastolic blood pressure 81 mm[Hg] Dr. Ramone Smiley MD Work Phone: 3(673)511-666835 [place] [address] 02-06-2025 15:38-0400 Heart rate 74 /min Dr. Ramone Smiley MD Work Phone: 3(166)484-566835 [place] [address] 02-06-2025 15:38-0400 Respiratory rate 18 /min Dr. Ramone Smiley MD Work Phone: 7(356)131-255935 [place] [address] 02-06-2025 15:38-0400 SaO2% (BldA) [Mass fraction] 93 % Dr. Ramone Smiley MD Work Phone: 4(772)015-063032 [place] [address] 02-06-2025 15:38-0400 Systolic blood pressure 117 mm[Hg] Dr. Ramone Smiley MD Work Phone: 7(807)303-117635 [place] [address] 02-06-2025 07:36-0400 Inhaled oxygen flow rate 2 L/min Dr. Ramone Smiley MD Work Phone: 9(249)558-004535 [place] [address] 02-04-2025 12:34-0400 Body height 160.[address] Ramone Smiley MD Work Phone: 9(749)725-848135 [place] [address] 02-04-2025 12:34-0400 Body mass index (BMI) [Ratio] 27.8 kg/m2 Dr. Ramone Smiley MD Work Phone: 2(621)741-476235 [place] [address] 02-04-2025 12:34-0400 Body weight 71.[address] Ramone Smiley MD Work Phone: 1(698)938-066035 [place] [address] 02-04-2025 11:06-0400 Body temperature 98.6 [degF] Dr. Ramone Smiley MD Work Phone: 4(931)914-126935 [place] [address] 02-04-2025 11:06-0400 Diastolic blood pressure 46 mm[Hg] Dr. Ramone Smiley MD Work Phone: 0(488)749-113835 [place] [address] 02-04-2025 11:06-0400 Heart rate 88 /min Dr. Ramone Smiley MD Work Phone: 5(825)470-726235 [place] [address] 02-04-2025 11:06-0400 Respiratory rate 30 /min Dr. Ramone Smiley MD Work Phone: 4(497)507-319335 [place] [address] 02-04-2025 11:06-0400 SaO2% (BldA) [Mass fraction] 99 % Dr. Ramone Smiley MD Work Phone: 6(803)537-043835 [place] [address] 02-04-2025 11:06-0400 Systolic blood pressure 111 mm[Hg] Dr. Ramone Smiley MD Work Phone: 2(530)850-249535 [place] [address] 02-04-2025 11:00-0400 Inhaled oxygen flow rate 3 L/min Dr. Ramone Smiley MD Work Phone: 4(445)702-336532 [place] [address] 02-04-2025 06:20-0400 Body height 160.[address] Ramone Smiley MD Work Phone: 8(997)515-431335 [place] [address] 02-04-2025 06:20-0400 Body mass index (BMI) [Ratio] 29.9 kg/m2 Dr. Ramone Smiley MD Work Phone: 6(054)720-097235 [place] [address] 02-04-2025 06:20-0400 Body weight 76.[address] Ramone Smiley MD Work Phone: 8(201)448-107935 [place] [address] 01-31-2025 06:28-0400 Body mass index (BMI) [Ratio] 27.4 kg/m2 Dr. Ramone Smiley MD Work Phone: 2(950)965-814135 [place] [address] 01-31-2025 06:28-0400 Body weight 70.[address] Ramone Smiley MD Work Phone: 4(290)939-809135 [place] [address] 01-31-2025 06:28-0400 Diastolic blood pressure 59 mm[Hg] Dr. Ramone Smiley MD Work Phone: 1(219)960-306635 [place] [address] 01-31-2025 06:28-0400 Heart rate 95 /min Dr. Ramone Smiley MD Work Phone: 3(719)799-528935 [place] [address] 01-31-2025 06:28-0400 Respiratory rate 18 /min Dr. Ramone Smiley MD Work Phone: 2(102)942-547335 [place] [address] 01-31-2025 06:28-0400 SaO2% (BldA) [Mass fraction] 95 % Dr. Ramone Smiley MD Work Phone: 3(309)920-367835 [place] [address] 01-31-2025 06:28-0400 Systolic blood pressure 107 mm[Hg] Dr. Ramone Smiley MD Work Phone: 3(818)764-054935 [place] [address] 01-26-2025 05:13-0400 Body temperature 98.3 [degF] Dr. Ramone Smiley MD Work Phone: 1(603)299-397935 [place] [address] 01-26-2025 05:13-0400 Diastolic blood pressure 72 mm[Hg] Dr. Ramone Smiley MD Work Phone: [facility] 01-26-2025 05:13-0400 Heart rate 83 /min Dr. Ramone Smliey MD Work Phone: 8(488)506-374435 [place] [address] 01-26-2025 05:13-0400 Respiratory rate 18 /min Dr. Ramone Smiley MD Work Phone: 2(209)850-352935 [place] [address] 01-26-2025 05:13-0400 SaO2% (BldA) [Mass fraction] 97 % Dr. Ramone Smiley MD Work Phone: 0(127)577-629735 [place] [address] 01-26-2025 05:13-0400 Systolic blood pressure 116 mm[Hg] Dr. Ramone Smiley MD Work Phone: 0(001)776-374535 [place] [address] 01-26-2025 03:02-0400 Body height 160.[address] Ramone Smiley MD Work Phone: 7(609)642-237735 [place] [address] 01-26-2025 03:02-0400 Body mass index (BMI) [Ratio] 31.4 kg/m2 Dr. Ramone Smiley MD Work Phone: 1(811)035-520235 [place] [address] 01-26-2025 03:02-0400 Body weight 80.[address] Ramone Smiley MD Work Phone: 3(864)784-444935 [place] [address] 01-24-2025 13:57-0400 Body temperature 97.4 [degF] Dr. Ramone Smiley MD Work Phone: 5(458)856-002535 [place] [address] 01-24-2025 13:57-0400 Diastolic blood pressure 68 mm[Hg] Dr. Ramone Smiley MD Work Phone: 8(658)379-460335 [place] [address] 01-24-2025 13:57-0400 Heart rate 87 /min Dr. Ramone Smiley MD Work Phone: 5(316)723-620035 [place] [address] 01-24-2025 13:57-0400 Respiratory rate 16 /min Dr. Ramone Smiley MD Work Phone: 1(986)788-236235 [place] [address] 01-24-2025 13:57-0400 SaO2% (BldA) [Mass fraction] 97 % Dr. Ramone Smiley MD Work Phone: 8(919)262-653632 [place] [address] 01-24-2025 13:57-0400 Systolic blood pressure 111 mm[Hg] Dr. Ramone Smiley MD Work Phone: 3(379)041-381532 [place] [address] 01-24-2025 05:23-0400 Body mass index (BMI) [Ratio] 30.7 kg/m2 Dr. Ramone Smiley MD Work Phone: 0(904)912-374835 [place] [address] 01-24-2025 05:23-0400 Body weight 78.[address] Ramone Smiley MD Work Phone: 9(611)493-734635 [place] [address] 01-22-2025 14:00-0400 Inhaled oxygen concentration 24 % Dr. Ramone Smiley MD Work Phone: 3(309)181-485235 [place] [address] 01-22-2025 11:00-0400 Inhaled oxygen flow rate 2 L/min Dr. Ramone Smiley MD Work Phone: 5(642)698-404935 [place] [address] 01-20-2025 10:06-0400 Body height 160.[address] Ramone Smiley MD Work Phone: 2(838)769-143535 [place] [address] 01-15-2025 18:58-0400 Body temperature 97.9 [degF] Dr. Ramone Smiley MD Work Phone: 4(617)312-072035 [place] [address] 01-15-2025 18:58-0400 Diastolic blood pressure 70 mm[Hg] Dr. Ramone Smiley MD Work Phone: 9(969)063-734935 [place] [address] 01-15-2025 18:58-0400 Heart rate 69 /min Dr. Ramone Smiley MD Work Phone: 7(221)907-335035 [place] [address] 01-15-2025 18:58-0400 Respiratory rate 22 /min Dr. Ramone Smiley MD Work Phone: 3(966)351-294335 [place] [address] 01-15-2025 18:58-0400 SaO2% (BldA) [Mass fraction] 98 % Dr. Ramone Smiley MD Work Phone: 4(978)571-685035 [place] [address] 01-15-2025 18:58-0400 Systolic blood pressure 130 mm[Hg] Dr. Ramone Smiley MD Work Phone: 1(182)525-504132 [place] [address] 01-15-2025 14:14-0400 Body height 160.[address] Ramone Smiley MD Work Phone: [facility] 01-15-2025 14:14-0400 Body mass index (BMI) [Ratio] 32.3 kg/m2 Dr. Ramone Smiley MD Work Phone: [facility] 01-15-2025 14:14-0400 Body weight 82.[address] Ramone Smiley MD Work Phone: 5(864)289-020211 [address] 01-07-2025 17:34-0400 Body temperature 97.6 [degF] Dr. Ramone Smiley MD Work Phone: 7(979)334-206911 [address] 01-07-2025 17:34-0400 Diastolic blood pressure 78 mm[Hg] Dr. Ramone Smiley MD Work Phone: 6(114)628-257511 [address] 01-07-2025 17:34-0400 Heart rate 82 /min Dr. Ramone Smiley MD Work Phone: 9(696)998-437511 [address] 01-07-2025 17:34-0400 Respiratory rate 19 /min Dr. Ramone Smiley MD Work Phone: 8(267)856-979811 [address] 01-07-2025 17:34-0400 SaO2% (BldA) [Mass fraction] 97 % Dr. Ramone Smiley MD Work Phone: 4(807)328-756311 [address] 01-07-2025 17:34-0400 Systolic blood pressure 147 mm[Hg] Dr. Ramone Smiley MD Work Phone: [facility] 01-07-2025 14:56-0400 Body height 160.[address] Ramone Smiley MD Work Phone: [facility] 01-07-2025 14:56-0400 Body mass index (BMI) [Ratio] 31.5 kg/m2 Dr. Ramone Smiley MD Work Phone: [facility] 01-07-2025 14:56-0400 Body weight 80.[address] Ramone Smiley MD Work Phone: [facility] 12-30-2023 14:14-0400 Body temperature 98.9 [degF] Dr. Ramone Smiley Work Phone: [facility] 12-30-2023 14:14-0400 Diastolic blood pressure 60 mm[Hg] Dr. Ramone Smiley Work Phone: [facility] 12-30-2023 14:14-0400 Heart rate 80 /min Dr. Ramone Smiley Work Phone: [facility] 12-30-2023 14:14-0400 Respiratory rate 18 /min Dr. Ramone Smiley Work Phone: [facility] 12-30-2023 14:14-0400 SaO2% (BldA) [Mass fraction] 95 % Dr. Ramone Smiley Work Phone: [facility] 12-30-2023 14:14-0400 Systolic blood pressure 131 mm[Hg] Dr. Ramone Smiley Work Phone: [facility] 12-29-2023 07:09-0400 Inhaled oxygen flow rate 2 L/min Dr. Ramone Smiley Work Phone: [facility] 12-28-2023 11:27-0400 Body height 160.[address] Ramone Smiley Work Phone: [facility] 12-28-2023 11:27-0400 Body mass index (BMI) [Ratio] 27.8 kg/m2 Dr. Ramone Smiley Work Phone: [facility] 12-28-2023 11:27-0400 Body weight 71.[address] Ramone Smiley Work Phone: [facility] 12-27-2023 23:42-0400 Body temperature 97.5 [degF] [facility] 12-27-2023 23:42-0400 Diastolic blood pressure 59 mm[Hg] [facility] 12-27-2023 23:42-0400 Heart rate 77 /min [facility] 12-27-2023 23:42-0400 Respiratory rate 20 /min [facility] 12-27-2023 23:42-0400 SaO2% (BldA) [Mass fraction] 97 % [facility] 12-27-2023 23:42-0400 Systolic blood pressure 159 mm[Hg] [facility] 12-27-2023 22:06-0400 Body height 160.02 cm [facility] 12-27-2023 22:06-0400 Body mass index (BMI) [Ratio] 29.5 kg/m2 [facility] 12-27-2023 22:06-0400 Body weight 75.6 kg [facility] 08-17-2023 13:26-0500 Body temperature 97.1 [degF] Dr. Ramone mSiley Work Phone: [facility] 08-17-2023 13:26-0500 Diastolic blood pressure 65 mm[Hg] Dr. Ramone Smiley Work Phone: [facility] 08-17-2023 13:26-0500 Heart rate 84 /min Dr. Ramone Smiley Work Phone: [facility] 08-17-2023 13:26-0500 Respiratory rate 18 /min Dr. Ramone Smiley Work Phone: [facility] 08-17-2023 13:26-0500 SaO2% (BldA) [Mass fraction] 98 % Dr. Ramone Smiley Work Phone: [facility] 08-17-2023 13:26-0500 Systolic blood pressure 140 mm[Hg] Dr. Ramone Smiley Work Phone: [facility] 08-14-2023 13:28-0500 Body height 160.[address] Rmaone Smiley Work Phone: [facility] 08-14-2023 13:28-0500 Body weight 60.[address] Ramone Smiley Work Phone: [facility] 08-13-2023 15:22-0500 Body mass index (BMI) [Ratio] 23.4 kg/m2 Dr. Ramone Smiley Work Phone: [facility] 08-13-2023 14:18-0500 Body temperature 98.6 [degF] Dr. Ramone Smiley Work Phone: [facility] 08-13-2023 14:18-0500 Diastolic blood pressure 59 mm[Hg] Dr. Ramone Smiley Work Phone: [facility] 08-13-2023 14:18-0500 Heart rate 107 /min Dr. Ramone Smiley Work Phone: [facility] 08-13-2023 14:18-0500 Respiratory rate 20 /min Dr. Ramone Smiley Work Phone: [facility] 08-13-2023 14:18-0500 SaO2% (BldA) [Mass fraction] 97 % Dr. Ramone Smiley Work Phone: [facility] 08-13-2023 14:18-0500 Systolic blood pressure 152 mm[Hg] Dr. Ramone Smiley Work Phone: 1(243)953-892932 [place] [address] 08-13-2023 10:03-0500 Body height 160.[address] Ramone Smiley Work Phone: [facility] 08-13-2023 10:03-0500 Body mass index (BMI) [Ratio] 24.5 kg/m2 Dr. Ramone Smiley Work Phone: 4(181)394-589232 [place] [address] 08-13-2023 10:03-0500 Body weight [address] Ramone Smiley Work Phone: [facility] 08-07-2023 20:23-0500 Body temperature 97.6 [degF] Dr. Ramone Smiley Work Phone: [facility] 08-07-2023 20:23-0500 Diastolic blood pressure 51 mm[Hg] Dr. Ramone Smiley Work Phone: [facility] 08-07-2023 20:23-0500 Heart rate 87 /min Dr. Ramone Smiley Work Phone: [facility] 08-07-2023 20:23-0500 Respiratory rate 18 /min Dr. Ramone Smiley Work Phone: 5(102)848-752732 [place] [address] 08-07-2023 20:23-0500 SaO2% (BldA) [Mass fraction] 98 % Dr. Ramone Smiley Work Phone: [facility] 08-07-2023 20:23-0500 Systolic blood pressure 115 mm[Hg] Dr. Ramone Smiley Work Phone: 8(395)647-960432 [place] [address] 07-19-2023 01:01-0500 Diastolic blood pressure 61 mm[Hg] Dr. Ramone Smiley Work Phone: 8(569)435-610232 [place] [address] 07-19-2023 01:01-0500 Heart rate 101 /min Dr. Ramone Smiley Work Phone: 9(067)687-182335 [place] [address] 07-19-2023 01:01-0500 Respiratory rate 20 /min Dr. Ramone Smiley Work Phone: 1(139)788-667811 [address] 07-19-2023 01:01-0500 Systolic blood pressure 145 mm[Hg] Dr. Ramone Smiley Work Phone: 7(910)450-352911 [address] 07-18-2023 23:28-0500 Body mass index (BMI) [Ratio] 25.7 kg/m2 Dr. Ramone Smiley Work Phone: 0(283)231-727611 [address] 07-18-2023 23:28-0500 Body weight 65.[address] Ramone Smiley Work Phone: 7(250)115-320532 [place] [address] 07-18-2023 22:47-0500 Body temperature 97.6 [degF] Dr. Ramone Smiley Work Phone: [facility] 07-18-2023 22:47-0500 SaO2% (BldA) [Mass fraction] 96 % Dr. Ramone Smiley Work Phone: 5(656)920-557332 [place] [address] 07-18-2023 22:44-0500 Body height 160.[address] Ramone Smiley Work Phone: 5(444)999-410932 [place] [address] 07-15-2023 13:24-0500 Body temperature 98.2 [degF] Dr. Ramone Smiley Work Phone: [facility] 07-15-2023 13:24-0500 Diastolic blood pressure 74 mm[Hg] Dr. Ramone Smiley Work Phone: [facility] 07-15-2023 13:24-0500 Heart rate 89 /min Dr. Ramone Smiley Work Phone: [facility] 07-15-2023 13:24-0500 SaO2% (BldA) [Mass fraction] 92 % Dr. Ramone Smiley Work Phone: [facility] 07-15-2023 13:24-0500 Systolic blood pressure 122 mm[Hg] Dr. Ramone Smiley Work Phone: [facility] 01-28-2023 16:36-0400 Diastolic blood pressure 63 mm[Hg] [facility] 01-28-2023 16:36-0400 Heart rate 75 /min [facility] 01-28-2023 16:36-0400 Systolic blood pressure 170 mm[Hg] [facility] 01-28-2023 14:54-0400 Body height 160.02 cm [facility] 01-28-2023 14:54-0400 Body mass index (BMI) [Ratio] 26.9 kg/m2 [facility] 01-28-2023 14:54-0400 Body temperature 97.8 [degF] [facility] 01-28-2023 14:54-0400 Body weight 69 kg [facility] 01-28-2023 14:54-0400 Respiratory rate 25 /min [facility] 01-28-2023 14:54-0400 SaO2% (BldA) [Mass fraction] 97 % [facility] 07-14-2022 18:11-0500 Diastolic blood pressure 64 mm[Hg] [facility] Work Phone: 07-14-2022 18:11-0500 Heart rate 73 /min [facility] Work Phone: 07-14-2022 18:11-0500 Respiratory rate 18 /min [facility] Work Phone: 07-14-2022 18:11-0500 SaO2% (BldA) [Mass fraction] 98 % [facility] Work Phone: 07-14-2022 18:11-0500 Systolic blood pressure 174 mm[Hg] [facility] Work Phone: 07-14-2022 11:59-0500 Body height 160.02 cm [facility] Work Phone: 07-14-2022 11:59-0500 Body mass index (BMI) [Ratio] 31.1 kg/m2 [facility] Work Phone: 07-14-2022 11:59-0500 Body temperature 97.2 [degF] [facility] Work Phone: 07-14-2022 11:59-0500 Body weight 79.83 kg [facility] Work Phone: 05-07-2022 13:26-0400 Body height 158.1 cm 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.[employer] Work Phone: [facility] 05-07-2022 13:26-0400 Body temperature 97.2 [degF] 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.[employer] Work Phone: [facility] 05-07-2022 13:26-0400 Body weight 73.71 kg Homer Iraheta 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.[employer] Work Phone: [facility] 05-07-2022 13:26-0400 Diastolic blood pressure 68 mm[Hg] Homer Iraheta 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.[employer] Work Phone: [facility] 05-07-2022 13:26-0400 Heart rate 66 /min Homer Iraheta 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.[employer] Work Phone: [facility] 05-07-2022 13:26-0400 Systolic blood pressure 160 mm[Hg] Homer Iraheta 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.[employer] Work Phone: [facility] 02-26-2022 09:43-0400 Body height 160.[address] Ramone Smiley Work Phone: [facility] Work Phone: 02-26-2022 09:43-0400 Body mass index (BMI) [Ratio] 28.1 kg/m2 Dr. Ramone Smiley Work Phone: [facility] Work Phone: 02-26-2022 09:43-0400 Body temperature 97.9 [degF] Dr. Ramone Smiley Work Phone: [facility] Work Phone: 02-26-2022 09:43-0400 Body weight 72.[address] Ramone Smiley Work Phone: [facility] Work Phone: 02-26-2022 09:43-0400 Diastolic blood pressure 80 mm[Hg] Dr. Ramone Smiley Work Phone: [facility] Work Phone: 02-26-2022 09:43-0400 Heart rate 70 /min Dr. Ramone Smiley Work Phone: [facility] Work Phone: 02-26-2022 09:43-0400 Respiratory rate 14 /min Dr. Ramone Smiley Work Phone: [facility] Work Phone: 02-26-2022 09:43-0400 SaO2% (BldA) [Mass fraction] 98 % Dr. Ramone Smiley Work Phone: [facility] Work Phone: 02-26-2022 09:43-0400 Systolic blood pressure 134 mm[Hg] Dr. Ramone Smiley Work Phone: [facility] Work Phone: 12-17-2021 13:23-0400 Diastolic blood pressure 60 mm[Hg] Dr. Ramone Smiley Work Phone: [facility] Work Phone: 12-17-2021 13:23-0400 Systolic blood pressure 154 mm[Hg] Dr. Ramone Smiley Work Phone: [facility] Work Phone: 12-10-2021 10:34-0400 Diastolic blood pressure 70 mm[Hg] Dr. Ramone Smiley Work Phone: [facility] Work Phone: 12-10-2021 10:34-0400 Systolic blood pressure 124 mm[Hg] Dr. Ramone Smiley Work Phone: [facility] Work Phone: 12-06-2021 15:22-0400 Body mass index (BMI) [Ratio] 30.2 kg/m2 Dr. Ramone Smiley Work Phone: [facility] Work Phone: 12-06-2021 15:22-0400 Body weight 77.[address] Ramone Smiley Work Phone: [facility] Work Phone: 12-06-2021 15:22-0400 Diastolic blood pressure 84 mm[Hg] Dr. Ramone Smiley Work Phone: [facility] Work Phone: 12-06-2021 15:22-0400 Systolic blood pressure 122 mm[Hg] Dr. Ramone Smiley Work Phone: [facility] Work Phone: 12-06-2021 15:22-0400 Body height 160.[address] Ramone Smiley Work Phone: [facility] Work Phone: 12-06-2021 15:22-0400 Body mass index (BMI) [Ratio] 30.2 kg/m2 Dr. Ramone mSiley Work Phone: [facility] Work Phone: 12-06-2021 15:22-0400 Body weight 77.[address] Ramone Smiley Work Phone: [facility] Work Phone: 12-06-2021 15:22-0400 Diastolic blood pressure 84 mm[Hg] Dr. Ramone Smiley Work Phone: [facility] Work Phone: 12-06-2021 15:22-0400 Systolic blood pressure 122 mm[Hg] Dr. Ramone Smiley Work Phone: [facility] Work Phone: 12-04-2021 11:22-0400 Diastolic blood pressure 70 mm[Hg] Dr. Ramone Smiley Work Phone: [facility] Work Phone: 12-04-2021 11:22-0400 Systolic blood pressure 124 mm[Hg] Dr. Ramone Smiley Work Phone: [facility] Work Phone: 12-04-2021 11:22-0400 Diastolic blood pressure 70 mm[Hg] Dr. Ramone Smiley Work Phone: [facility] Work Phone: 12-04-2021 11:22-0400 Systolic blood pressure 124 mm[Hg] Dr. Ramone Smiley Work Phone: [facility] Work Phone: 12-02-2021 14:03-0400 Diastolic blood pressure 60 mm[Hg] Dr. Ramone Smiley Work Phone: [facility] Work Phone: 12-02-2021 14:03-0400 Systolic blood pressure 138 mm[Hg] Dr. Ramone Smiley Work Phone: [facility] Work Phone: 12-02-2021 14:03-0400 Diastolic blood pressure 60 mm[Hg] Dr. Ramone Smiley Work Phone: [facility] Work Phone: 12-02-2021 14:03-0400 Systolic blood pressure 138 mm[Hg] Dr. Ramone Smiley Work Phone: [facility] Work Phone: 01-13-2017 14:21-0400 BMI (Body [...] Pulse (Heart Rate) 70 /min Zuleika Heaton [facility] Work Phone: 01-13-2017 14:21-0400 [...] Type Care Provider Facility Start: 03-25-2025 Dr. eMlba Hartmann MD - [facility] Work Phone: Start: 03-24-2025 Dr. Melba Hartmann MD - [facility] Work Phone: Start: 03-23-2025 Dr. Melba Hartmann MD - [facility] Work Phone: Start: 03-22-2025 Dr. Melba Hartmann MD - [facility] Work Phone: Start: 03-21-2025 ambulatory Abigail Foster Facility :[facility] Start: 03-21-2025 End: 03-25-2025 Evaluation and management of inpatient Dr. Ramone Smiley MD Work Phone: -Medical Surgical 3 Start: 03-21-2025 End: 03-25-2025 Dr. Abigail Foster MD -Medical Surgical 3 Work Phone: Start: 03-09-2025 Whitney Cao [employer]-C -[facility] Work Phone: Start: 03-09-2025 ambulatory Whitney Cao [employer] Facili ty:[facility] Start: 03-07-2025 ambulatory Whitney Cao [employer] Facili ty:[facility] Start: 03-07-2025 Dr. Se Good MD -[facility] Start: 03-07-2025 End: 03-07-[address] Ramone Smiley MD Work Phone: -Cardiovascular Services Start: 03-07-2025 End: 03-07-2025 Whitney Cao [employer] -Cardiovascular Services Work Phone: Start: 03-07-2025 End: 03-07-2025 ambulatory Whitney Cao NP Facility:[facility] Start: 03-04-2025 End: 03-04-2025 Dr. Ramone Smiley MD Work Phone: -Emergency Department Work Phone: Start: 03-04-2025 End: 03-04-2025 Emergency department patient visit Dr. Ramone Smiley MD Work Phone: -Emergency Department Start: 02-28-2025 Dr. Asha Anguiano MD -[facility] Work Phone: Start: 02-18-2025 End: 02-19-2025 Dr. Ramone Smiley MD Work Phone: -Emergency Department Work Phone: Start: 02-18-2025 End: 02-19-2025 Emergency department patient visit Dr. aRmone Smiley MD Work Phone: [facility] Work Phone: Start: 02-17-2025 Dr. Heydi Amaya MD -[facility] Work Phone: Start: 02-16-2025 Dr. Heydi Amaya MD -[facility] Work Phone: Start: 02-15-2025 End: 02-17-2025 ambulatory Nestor Bartlett Facility:[facility] Start: 02-15-2025 End: 02-17-[address] Ramone Smiley MD Work Phone: [facility] Work Phone: Start: 02-15-2025 End: 02-17-2025 Dr. Nestor Bartlett DO -[facility] Surgical 3 Work Phone: Start: 02-13-2025 Dr. Lucio Borden [facility] Work Phone: Start: 02-12-2025 Dr. Lucio Borden [facility] Work Phone: Start: 02-11-2025 Dr. Lucio Borden [facility] Work Phone: Start: 02-10-2025 Dr. Lucio Borden [facility] Work Phone: Start: 02-09-2025 ambulatory Lucio Borden Facilit y:[facility] Start: 02-09-2025 End: 02-13-2025 Evaluation and management of inpatient Dr. Ramone Smiley MD Work Phone: [facility] Work Phone: Start: 02-09-2025 End: 02-13-2025 Tono Gomez [facility] Work Phone: Start: 02-07-2025 End: 02-07-[address] Ramone Smiley MD Work Phone: [facility] Work Phone: Start: 02-07-2025 End: 02-07-2025 Dr. Ramone Smiley MD -Laboratory [facility] Start: 02-07-2025 End: 02-07-2025 ambulatory Ramone Smiley Facility:[facility] Start: 02-06-2025 Dr. Lucio Borden DO [facility] Work Phone: Start: 02-05-2025 Dr. Luc[address] Borden [facility] Work Phone: Start: 02-04-2025 Dr. Lucio Borden [facility] Work Phone: Start: 02-04-2025 ambulatory Ramone Smiley Facility:[facility] Start: 02-04-2025 End: 02-06-2025 Evaluation and management of inpatient Dr. Ramone Smiley MD Work Phone: [facility] Work Phone: Start: 02-04-2025 End: 02-06-2025 Dr. Lucio Borden DO -[facility] Work Phone: Start: 01-31-2025 End: 01-31-2025 Whitney SUGGS -[facility] Work Phone: Start: 01-31-2025 End: 01-31-[address] Ramone Smiley MD Work Phone: [facility] Work Phone: Start: 01-26-2025 End: 01-26-2025 Dr. Ramone Smiley MD Work Phone: -Emergency Department Work Phone: Start: 01-26-2025 End: 01-26-2025 Emergency department patient visit Dr. Ramone Smiley MD Work Phone: [facility] Work Phone: Start: 01-24-2025 Dr. Melba Hartmann MD - [facility] Work Phone: Start: 01-23-2025 Dr. Becca Silverman MD -[facility] Start: 01-23-2025 Dr. Melba Hartmann MD - [facility] Work Phone: Start: 01-22-2025 Dr. Melba Hartmann MD - [facility] Work Phone: Start: 01-21-2025 Dr. Melba Hartmann MD - [facility] Work Phone: Start: 01-20-2025 ambulatory Ramone Smiley Facility:[facility] Start: 01-20-2025 Dr. Marcelina Soto MD -[facility] Start: 01-20-2025 ambulatory Sandeep Carlton Facili ty:[facility] Start: 01-20-2025 End: 01-24-2025 Evaluation and management of inpatient Dr. Ramone Smiley MD Work Phone: [facility] Work Phone: Start: 01-20-2025 End: 01-24-2025 Dr. Melba Hartmann MD -Progressive Care Unit Work Phone: Start: 01-19-2025 End: 01-19-[address] Ramone Smiley MD Work Phone: [facility] Work Phone: Start: 01-19-2025 End: 01-19-2025 Dr. Ramone Smiley MD -Laboratory [facility] Start: 01-19-2025 End: 01-19-2025 ambulatory Ramone Smiley Facility:[facility] Start: 01-15-2025 End: 01-15-2025 [facility] Start: 01-15-2025 End: 01-15-2025 Emergency department patient visit Dr. Ramone Smiley MD Work Phone: -Emergency Department Work Phone: Start: 01-07-2025 End: 01-07-2025 Dr[facility] Work [facility] Start: 01-07-2025 End: 01-07-2025 Emergency department patient visit Dr. Ramone Smiley MD Work Phone: -Emergency Department Work Phone: Start: 11-21-2024 ambulatory Ramone Smiley Facility:[facility] Start: 11-21-[address] Ramnoe Smiley MD -Physical Therapy Work Phone: Start: 11-21-2024 Dr. Ramone Smiley MD -Phys ical Therapy Work Phone: Start: 09-27-2024 End: 09-27-[address] Ramone Smiley MD -Laboratory, [facility] Start: 09-27-2024 End: 09-27-2024 Dr. Ramone Smiley MD -Laboratory [facility] Start: 09-27-2024 End: 09-27-2024 ambulatory Ramone Smiley Facility:[facility] Start: 07-19-2024 End: 07-19-2024 ambulatory Asha Anguiano Facility:[facility] Start: 06-19-2024 End: 06-20-2024 Emergency department patient visit Billy Kothari Facility:[facility] Start: 05-30-2024 End: 05-30-2024 Emergency department patient visit Kwaku Marcial Facility:[facility] Start: 05-18-2024 End: 05-18-2024 ambulatory Jason BHATTI Facility:[facility] Start: 04-18-2024 End: 04-18-2024 ambulatory Ramone Smiley Facility:[facility] Start: 12-30-2023 Non-patient / Non-visit Dr. Richar Smiley Work Phone: [facility] Work Phone: Start: 12-29-2023 Non-patient / Non-visit Dr. Richar Smiley Work Phone: [facility] Work Phone: Start: 12-28-2023 Non-patient / Non-visit Dr. Richar Smiley Work Phone: [facility] Work Phone: Start: 12-27-2023 End: 12-30-2023 Evaluation and management of inpatient [facility]-Medical Surgical 3 Work Phone: Start: 10-26-2023 End: 10-26-[address] Ramone Smiley Work Phone: [facility] Work Phone: Start: 10-26-2023 End: 10-26-[address] Ramone Smiley Work Phone: [facility] Start: 08-17-2023 Non-patient / Non-visit Dr. Richar Smiley Work Phone: [facility] Work Phone: Start: 08-16-2023 Non-patient / Non-visit Dr. Richar Smiley Work Phone: [facility] Work Phone: Start: 08-15-2023 Non-patient / Non-visit Dr. Richar Smiley Work Phone: [facility] Work Phone: Start: 08-14-2023 Non-patient / Non-visit Dr. Richar Smiley Work Phone: [facility] Work Phone: Start: 08-13-2023 End: 08-17-2023 Evaluation and management of inpatient Dr. Ramone Smiley Work Phone: [facility]-Progressive Care Unit Work Phone: Start: 08-07-2023 End: 08-07-2023 Emergency department patient visit Dr. Ramone Smiley Work Phone: [facility]-Emergency Department Work Phone: Start: 07-18-2023 End: 07-19-2023 Emergency department patient visit Dr. Ramone Smiley Work Phone: [facility]-Emergency Department Work Phone: Start: 07-15-2023 End: 07-15-[address] Ramone Smiley Work Phone: [facility] Work Phone: Start: 06-01-2023 End: 06-01-[address] [facility] Work Phone: Start: 05-27-2023 End: 05-27-[address] Ramone Smiley Work Phone: [facility] Work Phone: Start: 05-15-2023 End: 05-15-[address] Ram[facility] Smiley [facility] [place] Work Phone: Start: 03-24-2023 End: 03-24-2023 ambulatory [facility] Work Phone: Start: 03-24-2023 End: 03-24-2023 Patient encounter procedure [facility] Work Phone: Start: 02-05-2023 End: 02-05-2023 ambulatory [facility] Work Phone: Start: 02-05-2023 End: 02-05-2023 Patient encounter procedure [facility]-Ultrasound, [facility] Start: 01-28-2023 End: 01-28-2023 Emergency department patient visit [facility]-Emergency Department Start: 01-28-2023 End: 01-28-2023 ambulatory [facility] Work Phone: Start: 01-28-2023 End: 01-28-2023 [facility] Start: 12-09-2022 End: 12-09-2022 ambulatory [facility] Work Phone: Start: 12-09-2022 End: 12-09-2022 Patient encounter procedure [facility] Start: 08-13-2022 End: 08-13-2022 ambulatory [facility] Work Phone: Start: 08-13-2022 End: 08-13-2022 Patient encounter procedure [facility]-Outpatient Breast Imaging Start: 07-14-2022 End: 07-14-2022 Emergency department patient visit [facility]-Emergency Department Start: 05-07-2022 End: 05-07-2022 ambulatory 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 APRN.[employer] Work Phone: Hematology/Oncology Comment on above: Iron deficiency anem ia due to chronic blood loss (Primary Dx) Start: 05-07-2022 End: 05-07-2022 Patient encounter procedure 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 APRN.[employer] Work Phone: [facility] Start: 02-27-2022 End: 02-27-[address] Ramone Smiley Work Phone: [facility] Start: 02-26-2022 End: 02-26-[address] Ramone Smiley Work Phone: [facility] Start: 02-10-2022 Telephone encounter Joseph sanders DO Work Phone: Hematology/Oncology Comment on above: Results (CBC and iro n levels) Start: 01-31-2022 Orders Only Joseph Lim Work Phone: Hematology/Oncology Comment on above: Iron deficiency anem ia due to chronic blood loss (Primary Dx) Start: 12-17-2021 End: 12-17-[address] Ramone Smiley Work Phone: [facility] Start: 12-10-2021 End: 12-10-[address] Ramone Smiley Work Phone: [facility] Start: 12-06-2021 End: 12-06-[address] Ramone Smiley Work Phone: [facility] Start: 12-04-2021 End: 12-04-[address] Ramone Smiley Work Phone: [facility] Start: 12-02-2021 End: 12-02-[address] Ramone Smiley Work Phone: [facility] Spec[facility] Start: 12-02-2021 End: 12-02-[address] Ramone Smiley Work Phone: [facility] Start: 09-29-2021 Telephone encounter Joseph sanders DO Work Phone: Hematology/Oncology Comment on above: Results; Follow Up Start: 09-13-2021 End: 09-13-[address] Ramone Smiley Work Phone: [facility], [facility] Start: 08-21-[address] Ramone Smiley Work Phone: [facility] Start: 08-12-2021 End: 08-12-[address] Ramone Smiley Work Phone: [facility] Start: 03-14-2021 Telephone encounter Joseph sanders DO Work Phone: Hematology/Oncology Comment on above: Results Start: 01-18-2018 [facility] Procedures Date Procedure Procedure Detail [...] Mean corpuscular hem oglobin concentration determination Dr. Ramnoe Smiley MD Work Phone: Start: 01-15-2025 Nucleated red blood cell count procedure Dr. Ramone Smiley MD Work Phone: Start: 01-15-2025 Platelet mean volume determination Dr. aRmone Smiley MD Work Phone: Start: 01-07-2025 X-ray [...] BRODIE Good MD Start: 08-29-2015 End: 08-29-2015 BUSINESS INSTRUCTOR Se Good MD Start: 08-29-2015 End: 08-29-2015 [...] Activity Detail Author Start: 03-25-2025 Patient discharge [facility] Start: 03-24-2025 Referral to service [facility] Start: 03-24-2025 [facility] Start: 03-23-2025 [facility] Start: 03-23-2025 [facility] Start: 03-23-2025 [facility] Start: 03-22-2025 Aspiration precautions [facility] Start: 03-22-2025 Speech therapy assessment [facility] Start: 03-22-2025 Following clinical pathway protocol [facility] Start: 03-22-2025 Assessment of risk o f venous thromboembolism [facility] Start: 03-22-2025 Care regimes management [facility] Start: 03-22-2025 Fall prevention [facility] Start: 03-22-2025 Inhalation therapy procedure [facility] Start: 03-22-2025 Insertion of cathete r into peripheral vein [facility] Start: 03-22-2025 Introduction of urin david catheter [facility] Start: 03-22-2025 Measuring intake and output [facility] Start: 03-22-2025 Notification of physician [facility] Start: 03-22-2025 Oxygen therapy [facility] Start: 03-22-2025 Providing care accor ding to standard [facility] Start: 03-22-2025 Provision of activit y privileges [facility] Start: 03-22-2025 Referral to occupati onal therapist [facility] Start: 03-22-2025 Referral to service [facility] Start: 03-22-2025 End: 03-22-2025 [facility] Start: 03-22-2025 Patient referral to dietitian [facility] Start: 03-21-2025 Verification routine [facility] Start: 03-21-2025 Admission procedure [facility] Start: 03-21-2025 Hospital admission, emergency, from emergency room, medical nature [facility] Start: 03-21-2025 End: 03-22-2025 [facility] Start: 03-07-2025 Cardiovascular stres s test using pharmacologic stress agent [facility] Start: 03-07-2025 NM Heart Views W str ess and W radionuclide IV [facility] Start: 03-04-2025 [facility] Start: 03-04-2025 End: 03-04-2025 [facility] Start: 03-04-2025 Blood culture [facility] Start: 02-19-2025 [facility] Start: 02-18-2025 [facility] Start: 02-17-2025 Patient discharge [facility] Start: 02-17-2025 [facility] Start: 02-16-2025 End: 02-16-2025 [facility] Start: 02-15-2025 [facility] Start: 02-15-2025 Following clinical pathway protocol [facility] Start: 02-15-2025 Ambulation without limitation [facility] Start: 02-15-2025 Assessment of risk o f venous thromboembolism [facility] Start: 02-15-2025 Care regimes management [facility] Start: 02-15-2025 Insertion of cathete r into peripheral vein [facility] Start: 02-15-2025 Notification of physician [facility] Start: 02-15-2025 Oxygen therapy [facility] Start: 02-15-2025 Providing care accor ding to standard [facility] Start: 02-15-2025 Referral to occupati onal therapist [facility] Start: 02-15-2025 Referral to service [facility] Start: 02-15-2025 [facility] Start: 02-15-2025 Verification routine [facility] Start: 02-15-2025 Admission procedure [facility] Start: 02-15-2025 Hospital admission, emergency, from emergency room, medical nature [facility] Start: 02-15-2025 [facility] Start: 02-15-2025 End: 02-15-2025 [facility] Start: 02-15-2025 Inhalation therapy procedure [facility] Start: 02-13-2025 Patient discharge [facility] Start: 02-11-2025 Inhalation therapy procedure [facility] Start: 02-10-2025 [facility] Start: 02-10-2025 Referral to service [facility] Start: 02-09-2025 Care regimes management [facility] Start: 02-09-2025 Notification of physician [facility] Start: 02-09-2025 [facility] Start: 02-09-2025 Following clinical pathway protocol [facility] Start: 02-09-2025 Ambulation without limitation [facility] Start: 02-09-2025 Assessment of risk o f venous thromboembolism [facility] Start: 02-09-2025 Catheterization of vein [facility] Start: 02-09-2025 Insertion of cathete r into peripheral vein [facility] Start: 02-09-2025 Oxygen therapy [facility] Start: 02-09-2025 Providing care accor ding to standard [facility] Start: 02-09-2025 Referral to occupati onal therapist [facility] Start: 02-09-2025 Referral to service [facility] Start: 02-09-2025 [facility] Start: 02-09-2025 Verification routine [facility] Start: 02-09-2025 Admission procedure [facility] Start: 02-09-2025 Hospital admission, emergency, from emergency room, medical nature [facility] Start: 02-09-2025 [facility] Start: 02-09-2025 Patient referral to dietitian [facility] Start: 02-06-2025 Patient discharge [facility] Start: 02-06-2025 Referral to service [facility] Start: 02-05-2025 [facility] Start: 02-04-2025 End: 02-04-2025 [facility] Start: 02-04-2025 Care regimes management [facility] Start: 02-04-2025 Notification of physician [facility] Start: 02-04-2025 Following clinical pathway protocol [facility] Start: 02-04-2025 Care planning and pr oblem solving actions [facility] Start: 02-04-2025 Ambulation without limitation [facility] Start: 02-04-2025 Assessment of risk o f venous thromboembolism [facility] Start: 02-04-2025 Catheterization of vein [facility] Start: 02-04-2025 Inhalation therapy procedure [facility] Start: 02-04-2025 Insertion of cathete r into peripheral vein [facility] Start: 02-04-2025 Oxygen therapy [facility] Start: 02-04-2025 Providing care accor ding to standard [facility] Start: 02-04-2025 [facility] Start: 02-04-2025 Hospital admission, emergency, from emergency room, medical nature [facility] Start: 02-04-2025 Verification routine [facility] Start: 02-04-2025 Admission procedure [facility] Start: 02-04-2025 [facility] Start: 02-04-2025 [facility] Start: 01-26-2025 [facility] Start: 01-24-2025 Referral to service [facility] Start: 01-24-2025 Patient discharge [facility] Start: 01-21-2025 [facility] Start: 01-21-2025 Referral to manager technical support [facility] Start: 01-20-2025 Oxygen therapy [facility] Start: 01-20-2025 Blood culture [facility] Start: 01-20-2025 Notification of physician [facility] Start: 01-20-2025 [facility] Start: 01-20-2025 End: 01-20-2025 [facility] Start: 01-20-2025 Application of intermittent pneumatic compression device [facility] Start: 01-20-2025 Following clinical pathway protocol [facility] Start: 01-20-2025 Cardiac monitoring [facility] Start: 01-20-2025 Catheterization of vein [facility] Start: 01-20-2025 Notification of physician [facility] Start: 01-20-2025 Vital signs measurements [facility] Start: 01-20-2025 Admission procedure [facility] Start: 01-20-2025 End: 01-20-2025 [facility] Start: 01-20-2025 Care regimes management [facility] Start: 01-20-2025 Inhalation therapy procedure [facility] Start: 01-20-2025 Patient referral to dietitian [facility] Start: 01-15-2025 [facility] Start: 01-15-2025 [facility] Start: 01-07-2025 [facility] Start: 12-30-2023 Patient discharge [facility] Start: 12-30-2023 Inhalation therapy procedure [facility] Start: 12-28-2023 Application of intermittent pneumatic compression device [facility] Start: 12-28-2023 Provision of overbed trapeze [facility] Start: 12-28-2023 Recommendation to continue with treatment [facility] Start: 12-28-2023 Ambulation therapy management [facility] Start: 12-28-2023 Application of device [facility] Start: 12-28-2023 Assessment of risk o f venous thromboembolism [facility] Start: 12-28-2023 Catheterization of vein [facility] Start: 12-28-2023 Exercises [facility] Start: 12-28-2023 Following clinical pathway protocol [facility] Start: 12-28-2023 Introduction of urin david catheter [facility] Start: 12-28-2023 Measuring intake and output [facility] Start: 12-28-2023 Neurovascular assessment [facility] Start: 12-28-2023 Patient education [facility] Start: 12-28-2023 Procedure discontinued [facility] Start: 12-28-2023 Provision of activit y privileges [facility] Start: 12-28-2023 Referral to occupati onal therapist [facility] Start: 12-28-2023 Referral to service [facility] Start: 12-28-2023 Vital signs measurements [facility] Start: 12-28-2023 Wound care [facility] Start: 12-28-2023 [facility] Start: 12-28-2023 Blood chemistry [facility] Start: 12-28-2023 Complete blood count [facility] Start: 12-28-2023 Following clinical pathway protocol [facility] Start: 12-28-2023 Assessment of risk o f venous thromboembolism [facility] Start: 12-28-2023 Care regimes management [facility] Start: 12-28-2023 Consultation [facility] Start: 12-28-2023 Incentive spirometry [facility] Start: 12-28-2023 Insertion of cathete r into peripheral vein [facility] Start: 12-28-2023 Notification of physician [facility] Start: 12-28-2023 Oxygen therapy [facility] Start: 12-28-2023 Providing care accor ding to standard [facility] Start: 12-28-2023 Provision of activit y privileges [facility] Start: 12-28-2023 Referral to occupati onal therapist [facility] Start: 12-28-2023 Referral to service [facility] Start: 12-28-2023 [facility] Start: 12-27-2023 Verification routine [facility] Start: 12-27-2023 Admission procedure [facility] Start: 08-17-2023 Referral to service [facility] Start: 08-17-2023 Patient discharge [facility] Start: 08-16-2023 [facility] Start: 08-13-2023 Following clinical pathway protocol [facility] Start: 08-13-2023 Assessment of risk o f venous thromboembolism [facility] Start: 08-13-2023 Care regimes management [facility] Start: 08-13-2023 Insertion of cathete r into peripheral vein [facility] Start: 08-13-2023 Measuring intake and output [facility] Start: 12-14-2023 Notification of physician [facility] Start: 08-13-2023 Providing care accor ding to standard [facility] Start: 08-13-2023 Provision of activit y privileges [facility] Start: 08-13-2023 Referral to occupati onal therapist [facility] Start: 08-13-2023 Referral to service [facility] Start: 08-13-2023 [facility] Start: 08-13-2023 Admission procedure [facility] Start: 08-13-2023 Verification routine [facility] Start: 08-13-2023 Bacteria identified in Blood by Culture Blood Culture [facility] Start: 08-13-2023 Bacteria identified in Urine by Culture Urine Culture [facility] Start: 08-13-2023 Hospital admission, emergency, from emergency room, medical nature [facility] Start: 08-13-2023 [facility] Start: 08-13-2023 End: 08-13-2023 Blood culture [facility] Start: 08-13-2023 Inhalation therapy procedure [facility] Start: 08-13-2023 Patient referral to dietitian [facility] Start: 08-07-2023 [facility] Start: 07-19-2023 End: 07-19-2023 [facility] Start: 07-18-2023 Measurement of occul t blood in stool specimen using immunoassay [facility] Start: 07-18-2023 Bacteria identified in Urine by Culture Urine Culture [facility] Start: 05-07-2022 BP CONTROLLED (<130/80) BP CONTROLLE D (<130/80) [facility] Start: 05-01-2022 Influenza vaccination C [facility] Start: 03-28-2022 COVID-19 VACCINE (4 - Booster for Moderna series) COVID-19 VACCINE (4 - Booster for Moderna series) [facility] Start: 09-29-2021 End: 09-29-2022 MONOCLONAL PROTEIN, SERUM (BLOOD) MONOCLONAL PROTEIN, SERUM (BLOOD) Lab Routine Anemia, unspecified type Expected: 09/29/2021, Expires: 09/29/2022 [facility] Work Phone: Comment on above: Expected: 09/29/2021 , Expires: 09/29/2022 Start: 09-29-2021 End: 09-29-2022 PROTEIN ELECTROPHORESIS SERUM W/INTERP PROTEIN ELECTROPHORESIS SERUM W/INTERP Lab Routine Anemia, unspecified type Expected: 09/29/2021, Expires: 09/29/2022 [facility] Work Phone: Comment on above: Expected: 09/29/2021 , Expires: 09/29/2022 Start: 08-31-2021 ADVANCE DIRECTIVE DISCUSSION ADVANCE DIRECTIVE DISCUSSION [facility] Start: 05-16-2021 COVID-19 VACCINE (3 - Booster for Moderna series) COVID-19 VACCINE (3 - Booster for Moderna series) [facility] Start: 05-04-2018 Urine microalbumin profile DTAP,TDAP,TD (2 - Td or Tdap) [facility] Start: 08-16-2016 3 comp foot exam completed DIABETIC FOOT EXAM [facility] Start: 10-09-2015 End: 04-02-2016 Follow Up Appt 6 months Follow Up Appt 6 months [facility] Work Phone: Start: 10-09-2015 End: 04-02-2016 MMM MMM [facility] Work Phone: Start: 08-29-2015 End: 08-29-2015 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 [facility] Work Phone: Start: 08-29-2015 End: 08-29-2015 Electrocardiogram, complete EKG (In office) [facility] Work Phone: Start: 08-29-2015 End: 08-29-2015 Follow Up Appt 6 weeks Follow Up Appt 6 weeks [facility] Work Phone: Start: 07-01-2014 Hemoglobin A1c/Hemoglobin.total in Blood HBA1C [facility] Start: 06-25-2014 Hepatitis B surface antibody level LDL CHOLESTEROL [facility] Start: 06-17-2014 Hepatitis C antibody , confirmatory test DILATED RETINAL EXAM [facility] Start: 02-12-2013 PNEUMOCOCCAL: 65+ (2 - PCV) PNEUMOCOCCAL: 65+ (2 - PCV) [facility] Start: 02-12-2013 PNEUMOCOCCAL: 65+ (3 - PCV) PNEUMOCOCCAL: 65+ (3 - PCV) [facility] Start: 02-18-2012 SHINGRIX VACCINE (1 of 2) JIMENEZ GRIX VACCINE (1 of 2) [facility] Start: 02-18-2012 SHINGRIX VACCINE (2 of 3) JIMENEZ GRIX VACCINE (2 of 3) [facility] Start: 01-02-1962 ANNUAL PCP TEAM CANDY SEPARATOR ENROBING ERIS DISEASE VISIT ANNUAL PCP TEAM CHRONIC DISEASE VISIT [facility] Start: 01-02-1962 BP CONTROLLED (<130/80) BP CONTROLLE D (<130/80) [facility] Start: 01-02-1962 HEPATITIS C SCREENING HEPATITIS C SC REENING [facility] Start: 1956 Adult depression screening assessment DEPRESSION SCREENING [facility] Anion gap measurement [facility] Bacteria identified in Sputum by Respiratory culture [facility] BUN/Creatinine ratio [facility] Calcium [Mass/volume ] in Serum or Plasma [facility] Carbon dioxide, tota l [Moles/volume] in Serum or Plasma [facility] End: 01-31-2023 CBC W Auto Differential panel - Blood CBC + DIFF Lab STAT Iron deficiency anemia due to chronic blood loss Every 3 months for 4 Occurrences starting 01/31/2022 until 01/31/2023 [facility] Work Phone: Comment on above: Every 3 months for 4 Occurrences starting 01/31/2022 until 01/31/2023 End: 09-29-2022 CBC W Auto Differential panel - Blood CBC + DIFF Lab Routine Anemia, unspecified type 1 Occurrences starting 09/29/2021 until 09/29/2022 [facility] Work Phone: Comment on above: 1 Occurrences starti ng 09/29/2021 until 09/29/2022 Chloride [Moles/volu me] in Serum or Plasma [facility] End: 09-29-2022 Comprehensive metabolic 2000 panel - Serum or Plasma COMP METABOLIC PANEL Lab Routine Anemia, unspecified type 1 Occurrences starting 09/29/2021 until 09/29/2022 [facility] Work Phone: Comment on above: 1 Occurrences starti ng 09/29/2021 until 09/29/2022 Creatinine [Moles/vo lume] in Serum or Plasma [facility] Erythrocyte mean corpuscular volume determination [facility] End: 01-31-2023 FERRITIN BLD FERRITIN BLD Lab Routine Iron deficiency anemia due to chronic blood loss Every 3 months for 4 Occurrences starting 01/31/2022 until 01/31/2023 [facility] Work Phone: Comment on above: Every 3 months for 4 Occurrences starting 01/31/2022 until 01/31/2023 Glucose [Mass/volume ] in Serum or Plasma [facility] Hematocrit [Volume Fraction] of Blood [facility] Hemoglobin [Mass/vol ume] in Blood [facility] Hemoglobin A1c/Hemoglobin.total in Blood [facility] End: 01-31-2023 IRON + TIBC IRON + TIBC Lab Routine Iron deficiency anemia due to chronic blood loss Every 3 months for 4 Occurrences starting 01/31/2022 until 01/31/2023 [facility] Work Phone: Comment on above: Every 3 months for 4 Occurrences starting 01/31/2022 until 01/31/2023 Leukocytes [#/volume ] in Blood [facility] Mean corpuscular hemoglobin concentration determination [facility] Mean corpuscular hemoglobin determination [facility] Measurement of renal function [facility] Microorganism identi fied in Unspecified specimen by Culture [facility] Microscopic observat ion [Identifier] in Unspecified specimen by Gram stain [facility] NM Heart Views W str ess and W radionuclide IV [facility] Patient Education [facility] Work Phone: Patient referral [facility] Work Phone: Platelets [#/volume] in Blood [facility] Potassium [Moles/vol ume] in Serum or Plasma [facility] Procalcitonin [Mass/volume] in Serum or Plasma by Immunoassay [facility] Red blood cell count [facility] Red cell distributio n width determination [facility] Sodium [Moles/volume ] in Serum or Plasma [facility] Troponin T.cardiac [Mass/volume] in Serum or Plasma by High sensitivity method [facility] Troponin T.cardiac [Mass/volume] in Serum or Plasma by High sensitivity method [facility] Urea nitrogen [Mass/volume] in Serum or Plasma [facility] Urine culture [facility] Urine culture [facility] Immunizations Immunization Date Immunization Notes Care Provider Larissa cuadra 07-03-2022 influenza, injectabl e, quadrivalent, preservative free Dr. Ramone Smiley MD Work Phone: [facility] 11-26-2021 Covid (Moderna) Dr. Ramone leon MD Work Phone: [facility] 08-22-2015 pneumococcal conjuga te vaccine, [address] Ramone Smiley MD Work Phone: [facility] 07-12-2012 influenza virus vacc ine, unspecified formulation Joseph Rolle DO Work Phone: [facility] 02-13-2012 pneumococcal polysaccharide vaccine, 23 valent Joseph Rolle DO Work Phone: [facility] 12-24-2011 zoster vaccine, live Joseph Chen chatterjee DO Work Phone: [facility] 06-02-2011 influenza virus vacc ine, unspecified formulation Joseph Rolle DO Work Phone: [facility] 08-09-2010 influenza virus vacc ine, unspecified formulation Joseph Aquilino DO Work Phone: [facility] 05-30-2009 influenza virus vacc ine, unspecified formulation Joseph Viktoriai DO Work Phone: [facility] 09-07-2008 influenza virus vacc ine, unspecified formulation Joseph Rolle DO Work Phone: [facility] Work Phone: 05-04-2008 tetanus toxoid, redu octavio diphtheria toxoid, and acellular pertussis vaccine, adsorbed Joseph Rolle DO Work Phone: [facility] Work Phone: 06-28-2007 influenza virus vacc ine, unspecified formulation Joseph Blumi DO Work Phone: [facility] Work Phone: 08-31-2005 pneumococcal polysaccharide vaccine, 23 valent Joseph Rolle DO Work Phone: [facility] Work Phone: Payers Date Payer Category Payer Self-pay [id number] 2017 Medicare HUMANA MEDICARE HUMANA MEDICARE PPO [id number] 2017-Present [phone] [address] [place] [address] PPO [id number] 2017 Medicare HUMANA MEDICARE HUMANA MEDICARE PPO [id number] 2017-Present [phone] [address] [place] [address] PPO [id number] 2016 Medicare [id number] Private Health Insurance Unknown [id number] 2.16.840.1.702834.3.579. 2.462 Unknown [id number] 2.16840.1.332171.3.579. 2.462 Unknown [id number] 2.16840.1.326955.3.579. 2.462 Unknown [id number] 2.16.840.1.841540.3.579. 2.462 Unknown [id number] 2.16840.1.811145.3.579. 2.462 Unknown [id number] 2.16.840.1.184852.3.579. 2.462 Unknown [id number] 2.16.840.1.598880.3.579. 2.462 Unknown [id number] 2.16.840.1.314869.3.579. 2.462 Unknown [id number] 2.16.840.1.115012.3.579. 2.462 Unknown [id number] 2.16840.1.622238.3.579. 2.462 Unknown [id number] 2.840.1.820666.3.579. 2.462 Unknown [id number] 2.840.1.808851.3.579. 2.462 Unknown [id number] 2.840.1.923363.3.579. 2.462 Unknown [id number] 2.840.1.813538.3.579. 2.462 Unknown [id number] 2.840.1.753305.3.579. 2.462 Unknown [id number] 2.840.1.989832.3.579. 2.462 Unknown [id number] 2.840.1.103950.3.579. 2.462 Unknown [id number] 2.840.1.033362.3.579. 2.462 Unknown [id number] 2.840.1.470864.3.579. 2.462 Unknown [id number] 2.840.1.933027.3.579. 2.462 Unknown [id number] 2.840.1.155885.3.579. 2.462 Unknown [id number] .840.1.002451.3.579. 2.462 Unknown [id number] .840.1.313581.3.579. 2.462 Unknown [id number] .840.1.530565.3.579. 2.462 Unknown [id number] .840.1.866991.3.579. 2.462 Unknown [id number] 2.840.1.418537.3.579. 2.462 Unknown [id number] 2.840.1.092527.3.579. 2.462 Unknown [id number] 2.840.1.193232.3.579. 2.462 Unknown [id number] 2.16.840.1.962092.3.579. 2.462 Unknown [id number] 2.840.1.482917.3.579. 2.462 Unknown [id number] 2.16.840.1.258951.3.579. 2.462 Unknown [id number] 2.840.1.109186.3.579. 2.462 Unknown [id number] 2.840.1.883186.3.579. 2.462 Unknown [id number] 2.840.1.074110.3.579. 2.462 Unknown [id number] 2.840.1.557369.3.579. 2.462 Unknown [id number] 2.840.1.735999.3.579. 2.462 Unknown [id number] 2.840.1.315902.3.579. 2.462 Unknown [id number] 2.840.1.912960.3.579. 2.462 Unknown [id number] 2.840.1.094968.3.579. 2.462 Unknown [id number] 2.840.1.823317.3.579. 2.462 Unknown [id number] 2.840.1.759790.3.579. 2.462 Unknown [id number] 2.840.1.017083.3.579. 2.462 Unknown [id number] 2.840.1.210950.3.579. 2.462 Unknown [id number] .840.1.838826.3.579. 2.462 Unknown [id number] 2.840.1.638008.3.579. 2.462 Unknown [id number] 2.840.1.518957.3.579. 2.462 Social History Date Type Detail Facility Start: 12-06-2021 End: 08-13-2023 Tobacco smoking status [facility] Unknown if ever smoked [facility] Start: 12-02-2019 None [facility] Start: 12-02-2019 Spouse/ Signif icant Other [facility] Start: 07-06-2020 Non-smoker [facility] Start: 1945 Sex Assigned At Female W [facility] Start: 02-03-2012 End: 03-22-2025 Tobacco smoking status NHIS Ex-smoker [facility] End: 01-30-2012 History of tobacco use Current smoker [facility] End: 01-30-2012 History of tobacco use Cigarette Smoker [facility] Start: 02-03-2012 End: 03-22-2012 Cigarettes smoked current (pack per day) - Reported 0.5 [facility] Start: 02-03-2012 End: 03-22-2012 Tobacco use and exposure Smokeless tobacco non-user [facility] Start: 05-07-2021 End: 05-07-2022 Alcohol intake Current non-drinker of alcohol (finding) [facility] Start: 1945 Sex Assigned At Not on file C [facility] Start: 10-05-2021 End: 11-04-2021 Exposure to SARS-CoV-2 (event) Not sure [facility] NEGATED: Highlighted row [facility] Medical Equipment Procedure Code Equipment Code Equipment Origin al Text Equipment Identifier Dates 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 Start: 12-28-2023 Primary uncemented hemiarthroplasty of hip unitrax neck adjustment sleeve FDA Start: 12-28-2023 Primary uncemented hemiarthroplasty of hip ([id number]) ()[id number] FDA Start: 12-28-2023 Primary uncemented hemiarthroplasty of [...] Facility 03-25-2025 Functional status Ambulates;Gume r;Bathroom Privilege [facility] Work Phone: 02-17-2025 Functional status Chair [facility] Work Phone: 02-16-2025 Functional status Well [facility] Work Phone: 02-13-2025 Functional status Chair [facility] Work Phone: 02-06-2025 Functional status Chair [facility] Work Phone: 01-24-2025 Functional status Ambulates [facility] Work Phone: 01-23-2025 Functional status Fair [facility] Work Phone: 12-30-2023 Functional status Bedrest [facility] Work Phone: 08-17-2023 Functional status Ambulates [facility] Work Phone: Mental Status Date Assessment Result Facility 03-25-2025 Cognitive function Voice/Name [facility] Work Phone: 02-17-2025 Cognitive function Voice/Name [facility] Work Phone: 02-13-2025 Cognitive function Voice/Name [facility] Work Phone: 02-06-2025 Cognitive function Voice/Name [facility] Work Phone: 01-24-2025 Cognitive function Voice/Name [facility] Work Phone: 12-30-2023 Cognitive function Voice/Name [facility] Work Phone: 08-17-2023 Cognitive function Voice/Name [facility] Work Phone: 08-13-2023 Cognitive function Level Of Cons ciousness Awake;Alert;Appropriate;Follow s Commands [facility] Work Phone: 01-28-2023 Cognitive function Level Of Cons ciousness Awake;Alert;Appropriate;Follow s Commands [facility] Work Phone: Clinical Notes 03-14-2021 to 03-25-2025 Note Date & Type Note Facility 03-25-2025 Discharge summary Note Date/Time March 25, 2025 2:37pm [facility] Medical Records Department [address] [place] [address] Discharge Summary 03/25/25 1133 MR#: [id number] Acct: [id number] Name: OLGA DONALDSON Rep #:[id number] : 1945 80 From: Melba Hartmann MD PCP: Dr. Ramone Smiley MD Status:ADM IN [place] [facility] [id number] Providers Date of Admission: 03/21/25 Date of [...] with her primary care doctor and her manager technical support for medications to be adjusted as needed. [...] 03/22/25 12:41 RMA (Rec: 03/22/25 12:41 RMA [id number]) Nutrition Malnutrition Evidence of Yes Malnutrition Exists [...] Neut % (Auto) 61.3, Lymph % (Auto) 26.3,[place] % (Auto) 10.4 H, Eos % (Auto) [...] Health Service Charges/Coding Visit Charges Inpatient E&M: 34561 Disch Hosp >30min 03/25/25 1437 <Electronically signed by Melba Hartmann MD> Cosigner Signature (if applicable): CC: Dr. Ramone Smiley MD; Dr. Melba Hartmann MD~ Signed [facility] Work Phone: 1(176) 814-297307-26-2025 Hospital Discharge instructionsAdditional Instructions cardizem stopped. Metoprolol cut down to 12.5mg bid. Lasix reduced to 20mg daily due to to hypotension Date [facility]: [facility] Work Phone: 1(915) 343-486307-26-2025 Discharge summary Author [facility] Note Date/Time March 25, 2025 11:3 3am [facility] Medical Records Department [address] [place] [address] Instructions for Home/Discharge Instructions 03/25/25 1126 MR#: [id number] Acct: [id number] Name: OLGA DONALDSON Rep #:[id number] : 1945 80 From: Melba Hartmann MD [...] MD; Dr. Ramone Smiley MD ~ Signed [facility] Work Phone: 1(330) 176-925107-26-2025 [facility]07-25-2025 Progress note Author Melba Hartmann [facility] Note Date/Time March 24, 2025 4:46 pm [facility] Medical Records Department [address] [place] [address] Progress Note 03/24/25 1200 MR#: [id number] Acct: [id number] Name: OLGA DONALDSON Rep #:[id number] : 1945 80 From: Melba Hartmann MD PCP: Dr. Ramone Smiley MD Status:ADM IN Location: [facility] RX081-2 Subjective Subjective Patient seen and examined. She [...] 03/22/25 12:41 RMA (Rec: 03/22/25 12:41 RMA [id number]) Nutrition Malnutrition Evidence of Yes Malnutrition Exists [...] Neut % (Auto) 68.8, Lymph % (Auto) 21.3,[place] % (Auto) 8.5, Eos % (Auto) 0.8, [...] prophylaxis: heparin. Charges/Coding Visit Charges Inpatient E&M: 40356 Subs Hosp L2 03/24/25 1646 <Electronically signed by Melba Hartmann MD> Melba Hartmann MD Cosigner Signature (if applicable): CC: ~ Signed [facility] Work Phone: 1(577) 615-800907-25-2025 Discharge summary Author Ethan Suarez [facility] Note Date/Time March 23, 2025 10:[facility] [address] [place] [address] Emergency Department Summary 03/21/25 MR#: [id number] Acct: [id number] Name: OLGA DONALDSON Rep #:[id number] : 1945 80 From: Ethan Casanova PCP: Dr. Ramone Smiley MD Status:ADM [id number] <Dr. Ethan Suarez DO - Last [...] to prolonged laying down at skilled facility. [facility] <Dr. 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 It may contain incorrectwords, spelling, [...] % (Auto) 62.3 Lymph % (Auto) 27.1 [place] % (Auto) 8.6 Eos % (Auto) 0.8 [...] Sl. Cloudy Urine pH 7.0 Ur Specific Emmons 1.010 Urine Protein 30 H Urine Glucose [...] in the abdominal CT report. Reading Location: [facility] Abdomen/Pelvis CT 03/21/25 18:02 IMPRESSION: 1. Similar patchy airspace consolidation in the bilateral lung bases, suggestingaspiration. 2. Moderate colonic stool burden with persistent mild distention and wall thickening of the rectal vault, suggesting chronic constipation and stercoral proctitis, although less pronounced from prior exam. 3. Multiple additional non-acute ancillary findings, as described above. Reading Location: [facility] <Dr. Noé Currie, DO - [...] clinician: N/A This note was generated with CUPS dictation software. It may contain incorrectwords, spelling, [...] diffuse weakness and admitted ambulations admitted to [facility] under hospitalist. Discussed with Dr. Foster. [...] % (Auto) 62.3 Lymph % (Auto) 27.1 [place] % (Auto) 8.6 Eos % (Auto) 0.8 [...] Sl. Cloudy Urine pH 7.0 Ur Specific Emmons 1.010 Urine Protein 30 H Urine Glucose [...] in the abdominal CT report. Reading Location: [facility] Abdomen/Pelvis CT 03/21/25 18:02 IMPRESSION: 1. Similar patchy airspace consolidation in the bilateral lung bases, suggestingaspiration. 2. Moderate colonic stool burden with persistent mild distention and wall thickening of the rectal vault, suggesting chronic constipation and stercoral proctitis, although less pronounced from prior exam. 3. Multiple additional non-acute ancillary findings, as described above. Reading Location: [facility] Discharge Plan Dx/Rx/DC Orders Clinical Impression: Back muscle spasm, Acute UTI Disposition Disposition: Acute Care Hospital [facility] Discharge Date/Time: 03/22/25 00:22 What to do if you have Problems For any increased pain, shortness of breath, bleeding, nausea or vomiting, chestpain, or any unexpected problems, contact your Primary Care Provider. Call [facility] ([phone]) or report to the closest Emergency Room. Call 911 if necessary. 03/23/252211 <Electronically signed by Ethan Casanova> Cosigner Signature (if applicable): 03/21/25 2301 <Electronically signed by Noé Currie DO> CC: Dr. Ramone Smiley MD ~ Signed [facility] Work Phone: 1(500) 647-960207-24-2025 Progress note Author Melba [facility] Note Date/Time March 23, 2025 1:37 pm [facility] Medical Records Department [address] [place] [address] Progress Note 03/23/25 1328 MR#: [id number] Acct: [id number] Name: OLGA DONALDSON Rep #:[id number] : 1945 80 From: Melba Hartmann MD PCP: Dr. Ramone Smiley MD Status:ADM IN Location: [facility] PN867-2 Subjective Subjective Patient seen and examined with [...] 03/22/25 12:41 RMA (Rec: 03/22/25 12:41 RMA [id number]) Nutrition Malnutrition Evidence of Yes Malnutrition Exists [...] 76.1 H, Lymph % (Auto) 16.5 L, [place] % (Auto) 6.8, Eos % (Auto) 0.0, [...] prophylaxis: heparin. Charges/Coding Visit Charges Inpatient E&M: 40351 Subs Hosp L2 03/23/25 1337 <Electronically signed by Melba Hartmann MD> Melba Hartmann MD Cosigner Signature (if applicable): CC: ~ Signed [facility] Work Phone: 1(103) 243-295407-23-2025 Progress note Author Melba [facility] Note Date/Time March 22, 2025 2:48 pm [facility] Medical Records Department [address] [place] [address] Progress Note 03/22/25 1428 MR#: [id number] Acct: [id number] Name: OLGA DONALDSON Rep #:[id number] : 1945 80 From: Melba Hartmann MD PCP: Dr. Ramone Smiley MD Status:ADM IN Location: [facility] GA690-2 Subjective Subjective Patient seen and examined with [...] 03/22/25 12:41 RMA (Rec: 03/22/25 12:41 RMA [id number]) Nutrition Malnutrition Evidence of Yes Malnutrition Exists [...] Sl. Cloudy, Urine pH 7.0, Ur Specific Emmons 1.010, Urine Protein 30 H, Urine Glucose [...] Neut % (Auto) 62.3, Lymph % (Auto) 27.1,[place] % (Auto) 8.6, Eos % (Auto) 0.8, [...] % (Auto) 65.3, Lymph % (Auto) 24.0, [place] % (Auto) 8.0, Eos % (Auto) 0.9, [...] in the abdominal CT report. Reading Location: [facility] Abdomen/Pelvis CT 03/21/25 18:02 IMPRESSION: 1. Similar patchy airspace consolidation in the bilateral lung bases, suggestingaspiration. 2. Moderate colonic stool burden with persistent mild distention and wall thickening of the rectal vault, suggesting chronic constipation and stercoral proctitis, although less pronounced from prior exam. 3. Multiple additional non-acute ancillary findings, as described above. Reading Location: [facility] Physical Exam Const alert, oriented [...] prophylaxis: heparin. Charges/Coding Visit Charges Inpatient E&M: 80601 Subs Hosp L2 03/22/25 9478 <Electronically signed by Melba Hartmann MD> Melba Hartmann MD Cosigner Signature (if applicable): CC: ~ Signed [facility] Work Phone: 1(290) 182-401407-23-2025 History and physical note Author Abigail Foster [facility] Note Date/Time March 22, 2025 12:4 1am [facility] Medical Records Department [address] [place] [address] H&P Exam - Hospitalist 03/21/25 9085 MR#: [id number] Acct: [id number] Name: OLGA DONALDSON Rep #:[id number] : 1945 80 From: Abigail Foster MD PCP: Dr. Ramone Smiley MD Status:ADM IN [place] [facility] EF489-9 [facility] - General General Date of Admission: [...] considered in remission who presents to the [facility] ED on 03/21/2025 with history of [...] 1, morphine 2 mg IV x 1, [id number] mg p.o. x 1. [facility] Medical History Former smoker On home [...] mg tablet 25 mg PO BID BLOOD [place] ESSURE 08/16/18 01/15/25 History pantoprazole 40 mg [...] Sl. Cloudy, Urine pH 7.0, Ur Specific Emmons 1.010, Urine Protein 30 H, Urine Glucose [...] Neut % (Auto) 62.3, Lymph % (Auto) 27.1,[place] % (Auto) 8.6, Eos % (Auto) 0.8, [...] in the abdominal CT report. Reading Location: [facility] Abdomen/Pelvis CT 03/21/25 18:02 IMPRESSION: 1. Similar patchy airspace consolidation in the bilateral lung bases, suggestingaspiration. 2. Moderate colonic stool burden with persistent mild distention and wall thickening of the rectal vault, suggesting chronic constipation and stercoral proctitis, although less pronounced from prior exam. 3. Multiple additional non-acute ancillary findings, as described above. Reading Location: [facility] Assessment & Plan Assessment/Plan (1) [...] considered in remission who presents to the [facility] ED on 03/21/2025 with history of [...] Time: 16minutes. Charges/Coding Visit Charges Inpatient E&M: 40062 Init Hosp L3 Procedures Hospitalists Procedures: 84924 Advncd Care Plan 30 Min 03/22/25 0041 <Electronically signed by Abigail Foster MD> Cosigner Signature (if applicable): CC: Dr. Abigail Foster MD; Dr. Ramone Smiley MD~ Signed [facility] Work Phone: 1(997) 597-409307-22-2025 Radiology Diagnostic study [facility]07-22-2025 Radiology Diagnostic study [facility]07-05-2025 Radiology Diagnostic study [facility] 03-04-2025 Discharge summary Author Jeevan [facility] Note Date/Time March 04, 2025 11:14 pm [facility] Medical Records Department [address] [place] [address] Emergency Department Summary 03/04/25 MR#: [id number] Acct: [id number] Name: OLGA DONALDSON Rep #:[id number] : 1945 80 From: Jeevan Yoder DO PCP: Dr. Ramone Smiley MD Status:[facility] ER Location: ED HPI History of [...] Patient denies any history of kidney stones. [facility] Medical History History of [...] mg tablet 25 mg PO BID BLOOD [place] ESSURE 08/16/18 01/15/25 History pantoprazole 40 mg [...] following commands knew that she was at [facility] year is 2024 Skin: Warm, dry, [...] Std Deviation 52.9 H RDW Coeff of Vijya 16.2 H Plt Count 334 MPV 10.6 Immature Gran % (Auto) 0.700 Neut % (Auto) 66.1 Lymph % (Auto) 24.2 [place] % (Auto) 6.9 Eos % (Auto) 1.7 [...] Clarity Cloudy Urine pH 7.0 Ur Specific Emmons 1.010 Urine Protein 100 H Urine Glucose [...] aspiration pneumonia. 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 Reading Location: [place] [address] Discharge Plan Triage Chief Complaint: Serna C/O [...] other concerns or worsening symptoms Print Language: Vietnamese Disposition Disposition: Home, Self Care What to do if you have Problems For any increased pain, shortness of breath, bleeding, nausea or vomiting, chestpain, or any unexpected problems, contact your Primary Care Provider. Call [facility] ([phone]) or report to the closest Emergency Room. Call 911 if necessary. 03/04/25 2314 <Electronically signed by Jeevan Yoder DO> Cosigner Signature (if applicable): CC: Dr. Ramone Smiley MD ~ Signed [facility] Work Phone: 1(792) 468-463507-02-2025 Hospital Discharge instructionsAdditional Instructions Urine with signs of infection. You had infection a few weeks ago you self cath. Take finish antibiotic prescribed. Continue your Tylenol every 6 hours. Use Valium as needed. Follow-up with your doctor.[facility] Work Phone: 1(537) 471-842406-21-2025 Radiology Diagnostic study [facility]06-21-2025 Discharge summary Author Billy Kothari [facility] Note Date/Time February 19, 2025 12:0 5am [facility] Medical Records Department [address] [place] [address] Emergency Department Summary 02/18/25 MR#: [id number] Acct: [id number] Name: OLGA DONALDSON Rep #:[id number] : 1945 80 From: Billy Kothari MD PCP: Dr. Ramone Smiley MD Status:REG ER Location: ED HPI History of Present Illness Chief Complaint: Shortness of Breath Narrative Narrative: 80-year-old female past medical history of COPD, wears 2 to 3 L of oxygen, presents from residential facility with increasing shortness of breath. Sherelates history that she was admitted to the hospital for breathing difficulty and was released on Thursday. This is approximately 5 days ago. She is only at the residential facility temporarily. She states she does not see a director of clinical services. She has been taking prednisone since discharge. She presents today with increasing shortness of breath and occasional cough. No fevers or chills. [facility] Medical History History of [...] mg tablet 25 mg PO BID BLOOD [place] ESSURE 08/16/18 01/15/25 History pantoprazole 40 mg [...] hence, she was admitted then placed in residential facility. Says that she had history of [...] on steroids and nebulizer treatments at the residential facility. She is motivated for discharge. Disposition [...] 78.7 H Lymph % (Auto) 12.5 L [place] % (Auto) 6.7 Eos % (Auto) 1.0 [...] evaluation. No obvious acute finding. Reading Location: [facility] Discharge Plan Triage Chief Complaint: Shortness [...] wear your nasal cannula oxygen. Print Language: Vietnamese Disposition Disposition: Home, Self Care What to do if you have Problems For any increased pain, shortness of breath, bleeding, nausea or vomiting, chestpain, or any unexpected problems, contact your Primary Care Provider. Call [facility] ([phone]) or report to the closest Emergency Room. Call 911 if necessary. 02/19/25 0005 <Electronically signed by Billy Kothari MD> Cosigner Signature (if applicable): CC: Dr. Ramone Smiley MD ~ Signed [facility] Work Phone: 1(494) 665-424906-20-2025 Discharge summary Author Heydi Amaya [facility] Note Date/Time February 17, 2025 5:15 pm [facility] Medical Records Department [address] [place] [address] Discharge Summary 02/17/25 1713 MR#: [id number] Acct: [id number] Name: OLGA DONALDSON Rep #:[id number] : 1945 80 From: Heydi Amaya MD PCP: Dr. Ramone Smiley MD Status:ADM JESS [facility] Prov[facility] Date of Admission: 02/15/25 Date of [...] netarsudil 0.02 %-latanoprost 0.005 % eye drops ([facility]) 1 drp EACH EYE DAILYeye drops 01/15/25 [...] GERD, COPD, hypertension, diabetes who presented to [facility] ED 02/16/2025 with shortness of breath [...] (Auto) 86.1 H, Lymph % (Auto) 7.8L, [place] % (Auto) 5.0, Eos % (Auto) 0.1, [...] in before D/C Order can be placed): [facility] Charges/Coding Visit Charges Inpatient E&M: 22527 Disch Hosp 02/17/25 8673 <Electronically signed by Heydi Amaya MD> Cosigner Signature (if applicable): CC: Dr. Ramone Smiley MD; Dr. Heydi Amaya MD~ Signed [facility] Work Phone: 1(168) 266-843206-20-2025 Discharge summary Author Heydi Amaya [facility] Note Date/Time February 17, 2025 5:13 pm [facility] Medical Records Department [address] [place] [address] Transfer to [facility] MR#: [id number] Acct: [id number] Name: OLGA DONALDSON Rep #:[id number] : 1945 80 From: Heydi Amaya MD PCP: Dr. Ramone Smiley MD Status:ADM JESS Certification of patient admission REQUIRED AT TIME OF ADMISSION. I CERTIFY THAT POST-HOSPITAL ECF SERVICES ARE REQUIRED TO BE GIVEN ON AN IN-PATIENT BASIS BECAUSE OF THE ABOVE NAMED PATIENT'S NEED FOR ALF CARE ON A CONTINUING BASIS FOR THE CONDITION(S) FOR WHICH HE/SHE WAS RECEIVING IN-PATIENT HOSPITAL SERVICES PRIOR TO HIS/HER TRANSFER TO THE [facility]. 02/17/25 1703<Electronically signed by Heydi Amaya MD> Diet Diet [...] GERD, COPD, hypertension, diabetes who presented to [facility] ED 02/16/2025 with shortness of breath [...] in before D/C Order can be placed[facility] 02/17/25 1713 <Electronically signed by Heydi Amaya MD> Cosigner Signature (if applicable): CC: Dr. Nestor Bartlett DO; Dr. Ramone Smiley MD ~ [facility] Work Phone: 1(833) 282-675206-20-2025 [facility]06-19-2025 Progress note Author Heydi Amaya [facility] Note Date/Time February 16, 2025 4:45 pm [facility] Medical Records Department [address] [place] [address] Progress Note - Hospitalist 02/16/2529 MR#: [id number] Acct: [id number] Name: OLGA DONALDSON Rep #:[id number] : 1945 80 From: Heydi Amaya MD PCP: Dr. Ramone Smiley MD Status:ADM JESS Location: [place] [address] Reason for Visit Reason for Visit: Diagnoses [...] 82.5 H, Lymph % (Auto) 10.9 L, [place] % (Auto) 4.8, Eos % (Auto) 0.7, [...] evidence of acute cardiopulmonary process. Reading Location: [facility] Physical Exam Narrative General: Alert, oriented, no [...] GERD, COPD, hypertension, diabetes who presented to [facility] ED 02/16/2025 with shortness of breath [...] Amaya MD Charges/Coding Visit Charges Inpatient E&M: 92007 Subs Hosp L2 02/16/25 5813 <Electronically signed by Heydi Amaya MD> Cosigner Signature (if applicable): CC: ~ Signed [facility] Work Phone: 1(582) 879-298606-18-2025 Discharge summary Author Robert Allison [facility] Note Date/Time February 15, 2025 3:14 pm [facility] Medical Records Department [address] [place] [address] Emergency Department Summary 02/15/25 MR#: [id number] Acct: [id number] Name: OLGA DONALDSON Rep #:[id number] : 1945 80 From: Robert Allison DO PCP: Dr. Ramone Smiley MD Status:ADM JESS Location: [place] [address] HPI History of Present Illness Chief Complaint: [...] a cough. Denies fever or chest pain. [facility] Medical History (Updated 02/15/25 [...] mg tablet 25 mg PO BID BLOOD [place] ESSURE 08/16/18 01/15/25 History pantoprazole 40 mg [...] and faint expiratory wheezes. Mild tachypnea. 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 [employer]ETING [employer]MER INTERN also elevated 4408 however this is significantly [...] They are requesting placement to rehab facility. nursing support worker saw patient and asked that we [...] 82.5 H Lymph % (Auto) 10.9 L [place] % (Auto) 4.8 Eos % (Auto) 0.7 [...] evidence of acute cardiopulmonary process. Reading Location[facility] 1 view chest x-ray obtained [...] Care Provider] - 3-5 Days Print Language: Vietnamese Disposition Disposition: Acute Care Hospital [facility] What to do if you have Problems For any increased pain, shortness of breath, bleeding, nausea or vomiting, chestpain, or any unexpected problems, contact your Primary Care Provider. Call [facility] ([phone]) or report to the closest Emergency Room. Call 911 if necessary. 02/15/25 7033 <Electronically signed by Robert Allison DO> Cosigner Signature (if applicable): CC: Dr. Ramone Smiley MD ~ Signed [facility] Work Phone: 1(139) 603-757106-18-2025 History and physical note Author Nestor Bartlett [facility] Note Date/Time February 15, 2025 2:57 pm [facility] Medical Records Department [address] [place] [address] H&P Exam - Hospitalist 02/15/25 1401 MR#: [id number] Acct: [id number] Name: OLGA DONALDSON Rep #:[id number] : 1945 80 From: Nestor roman DO PCP: Dr. Ramone Smiley MD Status:ADM JESS Location: [place] [address] HPI - General General Date of Admission: 02/15/25 Date of Service: 02/15/25 Chief Complaint: Shortness of breath, acute on chronic debility HPI Narrative OLGA DONALDSON, is a 80 F who presented to [facility] ED on 02/15/2025 with shortness of [...] currently. Will be admitted for further management. [facility] Medical History (Updated 02/15/25 @ 13:15 [...] mg tablet 25 mg PO BID BLOOD [place] ESSURE 08/16/18 01/15/25 History pantoprazole 40 mg [...] 01/15/25 01/15/25 History 0.005 % [facility] drops [facility] psyllium husk 0.4 gram capsule 0.4 g [...] 82.5 H, Lymph % (Auto) 10.9 L, [place] % (Auto) 4.8, Eos % (Auto) 0.7, [...] evidence of acute cardiopulmonary process. Reading Location: [facility] Assessment & Plan Assessment/Plan (1) Generalized weakness: PLAN: Plan Patient is an 80-year-old female who presented [facility] ED on 02/15/2025 with recurrent shortness of breath and acute on chronic debility. 1. Acute on chronic debility ? Admit under observation status to [facility]. PT/OT/case management consulted. Multiple recent [...] 75 minutes. Charges/Coding Visit Charges Inpatient E&M: 03302 Init Hosp L3 02/15/25 1457 <Electronically signed by Nestor Bartlett DO> Cosigner Signature (if applicable): CC: Dr. Nestor Bartlett DO; Dr. Ramone Smiley MD~ Signed [facility] Work Phone: 1(264) 258-161306-18-2025 Radiology Diagnostic study [facility]06-16-2025 Discharge summary Author Lucio Borden [facility] Note Date/Time February 13, 2025 2:22 pm [facility] Medical Records Department [address] [place] [address] Instructions for Home/Discharge Instructions 02/13/25 1415 MR#: [id number] Acct: [id number] Name: OLGA DONALDSON Rep #:[id number] : 1945 80 From: Lucio Borden DO [...] CC: Dr. Ramone Smiley MD ~ Signed [facility] Work Phone: 1(215) 722-553306-16-2025 [facility]06-15-2025 Progress note Author [facility] Note Date/Time February 12, 2025 11:2 5am [facility] Medical Records Department [address] [place] [address] Progress Note - Hospitalist 02/12/25 1123 MR#: [id number] Acct: [id number] Name: OLGA DONALDSON Rep #:[id number] : 1945 80 From: Lucio Borden DO PCP: Dr. Ramone Smiley MD Status:ADM IN [facility] Reason for Visit Reason for Visit: Diagnoses [...] 35- minutes Charges/Coding Visit Charges Inpatient E&M: 09726 Subs Hosp L2 02/12/25 1125 <Electronically signed by Lucio Borden DO> Cosigner Signature (if applicable): CC: ~ Signed [facility] Work Phone: [phone]) 817-764306-14-2025 Progress note [facility] Note Date/Time February 11, 2025 4:29 pm [facility] Medical Records Department [address] [place] [address] Progress Note - Hospitalist 02/11/25 1621 MR#: [id number] Acct: [id number] Name: OLGA DONALDSON Rep #:[id number] : 1945 80 From: Lucio Borden DO PCP: Dr. Ramone Smiley MD Status:ADM IN [facility] Reason for Visit Reason for Visit: Diagnoses [...] 35- minutes Charges/Coding Visit Charges Inpatient E&M: 72558 Subs Hosp L2 02/11/25 1627 <Electronically signed by Lucio Borden DO> Cosigner Signature (if applicable): CC: ~ Signed [facility] Work Phone: 1([phone]) 720-665306-13-2025 Progress note [facility] Note Date/Time February 10, 2025 5:29 pm [facility] Medical Records Department [address] [place] [address] Progress Note - Hospitalist 02/10/25 1720 MR#: [id number] Acct: [id number] Name: OLGA DONALDSON Rep #:[id number] : 1945 80 From: Lucio Borden DO PCP: Dr. Ramone Smiley MD Status:ADM IN [facility] Reason for Visit Reason for Visit: Diagnoses [...] 35- minutes Charges/Coding Visit Charges Inpatient E&M: 24623 Subs Hosp L2 02/10/25 1729 <Electronically signed by Lucio Borden DO> Cosigner Signature (if applicable): CC: ~ Signed [facility] Work Phone: 1(858) 184-586806-12-2025 History and physical note Author Tono Gomez [facility] Note Date/Time February 09, 2025 7:17 pm [facility] Medical Records Department [address] [place] [address] H&P Exam - Hospitalist 02/09/25 1525 MR#: [id number] Acct: [id number] Name: OLGA DONALDSON Rep #:[id number] : 1945 80 From: Tono BHATTI PCP: Dr. Ramone Smiley MD Status:ADM IN [place] [facility] HPI - General General Date of Service: [...] tightness, no dizziness or lightheadedness, no palpitations. [facility] Medical History COPD with exacerbation Anemia [...] mg tablet 25 mg PO BID BLOOD [place] ESSURE 08/16/18 01/15/25 History pantoprazole 40 mg [...] (Auto) 86.9 H, Lymph % (Auto) 7.3L, [place] % (Auto) 4.5, Eos % (Auto) 0.1, [...] bibasilar linear atelectasis. Reading Location: [facility] Assessment & Plan Assessment/Plan (1) COPD [...] assessment and findings. Visit Charges Inpatient E&M: 24249 Init Hosp L2 02/09/251916<Electronically signed by Lucio Borden DO> Cosigner Signature (if applicable): cc: DAVY Dykes; Dr. Ramone Smiley MD; Dr. Lucio Borden DO ~* Signed [facility] Work Phone: 1(422) 952-887006-12-2025 Discharge summary Author Jeremiah Corrales [facility] Note Date/Time February 09, 2025 2:57 pm [facility] Medical Records Department [address] [place] [address] Emergency Department Summary 02/09/25 MR#: [id number] Acct: [id number] Name: OLGA DONALDSON Rep #:[id number] : 1945 80 From: Jeremiah Corrales MD [...] Prior similar symptoms: Yes Recent Illness/Hospitalization: Yes [facility] Medical History COPD with [...] mg tablet 25 mg PO BID BLOOD [place] ESSURE 08/16/18 01/15/25 History pantoprazole 40 mg [...] 86.9 H Lymph % (Auto) 7.3 L [place] % (Auto) 4.5 Eos % (Auto) 0.1 [...] bibasilar linear atelectasis. Reading Location: [facility] Chest x-ray, 2 views, interpreted by [...] rhythm rate of 93 no acute signs FL or ischemia. Patient does have inverted T waves in V4 5 and 6 slight change from prior EKG from February 04. Prior EKG tracings: available for review Prior: Changed Discharge Plan Dx/Rx/DC Orders Clinical Impression: Acute dyspnea, Elevated troponin, Hypoxia, COPD exacerbation, History of diabetes mellitus Disposition Disposition: Acute Care Hospital [facility] What to do if you have Problems For any increased pain, shortness of breath, bleeding, nausea or vomiting, chestpain, or any unexpected problems, contact your Primary Care Provider. Call [facility] ([phone]) or report to the closest Emergency Room. Call 911 if necessary. 02/09/25 1457 <Electronically signed by Jeremiah Corrales MD> Cosigner Signature (if applicable): CC: Dr. Ramone Smiley MD ~ Signed [facility] Work Phone: 1(354) 744-366806-12-2025 Radiology Diagnostic study [facility]06-09-2025 Discharge summary Author Lucio Borden [facility] Note Date/Time February 06, 2025 2:01p [facility] Medical Records Department [address] [place] [address] Instructions for Home/Discharge Instructions 02/06/25 1351 MR#: [id number] Acct: [id number] Name: OLGA DONALDSON Rep #:[id number] : 1945 80 From: Lucio Borden DO [...] CC: Dr. Ramone Smiley MD ~ Signed [facility] Work Phone: 1(325) [phone] [facility]06-08-2025 Progress note Author [facility] Note Date/Time February 05, 2025 2:48p m [facility] Medical Records Department [address] [place] [address] Progress Note - Hospitalist 02/05/25 1442 MR#: [id number] Acct: [id number] Name: OLGA DONALDSON Rep #:[id number] : 1945 80 From: Lucio Borden DO PCP: Dr. Ramone Smiley MD Status:ADM IN Location: [facility] ESI843- 1 Subjective Subjective Patient was seen and [...] not believe the patient has had an FL #4 type 2 diabetes-blood sugars will be [...] 35 minutes Charges/Coding Visit Charges Inpatient E&M: 13643 Subs Hosp L2 02/05/25 1448 <Electronically signed by Lucio Borden DO> Cosigner Signature (if applicable): CC: ~ Signed [facility] Work Phone: 1(176) 226-383106-07-2025 Discharge summary Author Aj Holley [facility] Note Date/Time February 04, 2025 10:27 am [facility] Medical Records Department [address] [place] [address] Emergency Department Summary 02/04/25 MR#: [id number] Acct: [id number] Name: OLGA DONALDSON Rep #:[id number] : 1945 80 From: Aj Holley MD [...] of the couch, and has no pain. [facility] Medical History Elevated troponin [...] mg tablet 25 mg PO BID BLOOD [place] ESSURE 08/16/18 01/15/25 History pantoprazole 40 mg [...] (Reviewed 01/31/25 @ 16:15 by Whitney Cao MARKETING SUMMER INTERN, MARKETING SUMMER INTERN-C) Daughter Breast cancer Father Hypertension Sister Cancer [...] 75.4 H Lymph % (Auto) 15.7 L [place] % (Auto) 6.6 Eos % (Auto) 1.7 [...] MD [Primary Care Provider] - Print Language: Vietnamese What to do if you have Problems For any increased pain, shortness of breath, bleeding, nausea or vomiting, chestpain, or any unexpected problems, contact your Primary Care Provider. Call [facility] ([phone]) or report to the closest Emergency Room. [...] 11.8 and 37.9. White count slightly elevated [place] 0.2 thousand. There is slight shift with [...] Smiley MD ~* Signed ADDENDUM by Dr. Kwkau Marcial MD on 02/04/25 at 1027 CTA [...] cc: Dr. Ramone Smiley MD ~* Signed [facility] Work Phone: 1(268) 491-621106-07-2025 Radiology Diagnostic study [facility]06-07-2025 Radiology Diagnostic study [facility]05-29-2025 Radiology Diagnostic study [facility] 01-24-2025 [facility]05-26-2025 Progress note Author Becca Silverman [facility] Note Date/Time January 23, 2025 3:40p m [facility] Medical Records Department [address] [place] [address] Progress Note - Cardiology 01/23/25 1528 MR#: [id number] Acct: [id number] Name: OLGA DONALDSON Rep #:[id number] : 1945 80 From: Becca Silverman MD PCP: Dr. Ramone Smiley MD Status:ADM IN Location: [place] [address] Subjective Subjective Seen and evaluated at bedside [...] (Auto) 90.8 H, Lymph % (Auto) 6.2L, [place] % (Auto) 2.7, Eos % (Auto) 0.0, [...] (Auto)90.8 H, Lymph % (Auto) 6.2 L, [place] % (Auto) 2.7, Eos % (Auto) 0.0, [...] up an appointment to be seen by manager technical support as an outpatient and discussed further plan possible Lexiscan sestamibi and based on results of Lexiscan sestamibi to consider further evaluation. To minimize risk of contrast-induced nephropathy. Becca Silverman MD,[facility] 01/23/25 1540 <Electronically signed by Becca Silverman MD> Cosigner Signature (if applicable): CC: ~ Signed [facility] Work Phone: 1(262) 425-983605-26-2025 Progress note Author Melba [facility] Note Date/Time January 23, 2025 2:43p m [facility] Medical Records Department [address] [place] [address] Progress Note 01/23/25 1037 MR#: [id number] Acct: [id number] Name: OLGA DONALDSON Rep #:[id number] : 1945 80 From: Melba Hartmann MD PCP: Dr. Ramone Smiley MD Status:ADM IN Location: [place] [address] Subjective Subjective Patient seen and examined. She [...] (Auto) 90.8 H, Lymph % (Auto) 6.2L, [place] % (Auto) 2.7, Eos % (Auto) 0.0, [...] These were held * on ISS. Accuchecks [facility]. * on gabapentin * #History of left sided breast cancer: s/p lumpectomy in 2003. #History of multinodular goiter. stable #Glaucoma: on netarsudil-latanoprost eye drops. #History of neurogenic bladder: stable #GERD: On PPI #DVT prophylaxis: Heparin Charges/Coding Visit Charges Inpatient E&M: 45947 Subs Hosp L2 01/23/25 0703 <Electronically signed by Melba Hartmann MD> Melba Hartmann MD Cosigner Signature (if applicable): CC: ~ Signed [facility] Work Phone: 1(204) 533-498405-25-2025 Progress note Author [facility] Note Date/Time January 22, 2025 2:00p m [facility] Medical Records Department [address] [place] [address] Progress Note 05/25/25 0949 MR#: [id number] Acct: [id number] Name: OLGA DONALDSON Rep #:[id number] : 1945 80 From: Melba Hartmann MD PCP: Dr. Ramone Smiley MD Status:ADM IN Location: [place] [address] Subjective Subjective Patient seen and examined this [...] 91.4 H, Lymph % (Auto) 5.7 L, [place] % (Auto) 2.4, Eos % (Auto) 0.0, [...] to PCU Charges/Coding Visit Charges Inpatient E&M: 17777 Subs Hosp L2 01/22/25 1242 <Electronically signed by Melba Hartmann MD> Melba Hartmann MD Cosigner Signature (if applicable): CC: ~ Signed ADDENDUM by Dr. Melba Hartmann MD on 01/22/25 at 1400 Addendum 1:30pm Patient's son Ursula Lees Jr called on the phone ([phone]) and updated about his mother's condition. 01/22/25 1400 <Electronically signed by Melba vivas MD> Date _ Melba Hartmann MD Cosigner Signature (if applicable): Date cc: ~* Signed [facility] Work Phone: 1(321) 867-558905-24-2025 Progress note Author Melba Hartmann [facility] Note Date/Time January 21, 2025 2:07p [facility] Medical Records Department [address] [facility] [place] [address] Progress Note 01/21/25 1039 MR#: [id number] Acct: [id number] Name: OLGA DONALDSON Rep #:[id number] : 1945 80 From: Melba Hartmann MD [...] 88.4 H, Lymph % (Auto) 7.7 L, [place] % (Auto) 3.5, Eos % (Auto) 0.0, [...] H, Cal[place] 9.8, [place] [address] H 01/21/25 08:06: POC Glucose 202 H [...] noted. Cardiomegaly. No pericardial effusion. Reading Location: [id number] Echocardiogram 01/20/25 04:12 Interpretation Summary Mildly dilated left ventricle. The estimated ejection fraction is 35-40 %. There is evidence of diastolic dysfunction. There is moderate global hypokinesis of the left ventricle. Trivial mitral valve insufficiency. Mild aortic stenosis. Trivial aortic valve insufficiency. Ordering Physician: Sandeep Carlton Referring Physician: Ramone Smiley Performed By: Margot Cleary, RDCS, RVT Chest X-Ray 01/21/25 05:55 IMPRESSION: New appearing txbk-hd-qpwvavfu ill-defined perihilar opacity at the left upper [...] prophylaxis: Heparin Charges/Coding Visit Charges Inpatient E&M: 13979 Subs Hosp L2 01/21/25 1584 <Electronically signed by Melba Hartmann MD> Melba Bachignrichar Signature (if applicable): CC: ~ Signed [facility] Work Phone: 1(725) 303-763905-24-2025 Radiology Diagnostic study [facility]05-23-2025 Progress note Author Lucio Borden [facility] Note Date/Time January 20, 2025 4:58p m [facility] Medical Records Department [address] [place] [address] Progress Note - Hospitalist 01/20/25 1657 MR#: [id number] Acct: [id number] Name: OLGA DONALDSON Rep #:[id number] : 1945 80 From: Lucio Borden DO PCP: Dr. Ramone Smiley MD Status:ADM IN Location: [place] [address] Hospitalist Note Patient continues to have respiratory [...] Cosigner Signature (if applicable): CC: ~ Signed [facility] Work Phone: 1([phone]) 329-834205-23-2025 Progress note Author [facility] Note Date/Time January 20, 2025 11:20 am [facility] Medical Records Department [address] [place] [address] Progress Note - Hospitalist 01/20/25 1119 MR#: [id number] Acct: [id number] Name: OLGA DONALDSON Rep #:[id number] : 1945 80 From: Lucio Borden DO PCP: Dr. Ramone Smiley MD Status:ADM IN Location: [place] [address] Hospitalist Note Patient was seen and examined today, made the decision to change the patient to Airvo, patient was admitted for suspected right lower lobe pneumonia and exacerbation of COPD, she remained on aerosol treatments, IV Solu-Medrol, and IVlevofloxacin. 01/20/25 1120 <Electronically signed by Lucio Borden DO> Cosigner Signature (if applicable): CC: ~ Signed [facility] Work Phone: [phone]) 309-829305-23-2025 History and physical note Author Sandeep Marie [facility] Note Date/Time January 20, 2025 6:06a m [facility] Medical Records Department [address] [place] [address] H&P Exam - Hospitalist 01/20/25 0241 MR#: [id number] Acct: [id number] Name: OLGA DONALDSON Rep #:[id number] : 1945 80 From: Sandeep Dukes DO PCP: Dr. Ramone Smiley MD Status:ADM IN Location: [place] [address] HPI - General General Date of Admission: [...] stenosis of lumbar region who presents to [facility] ER complaining of shortness of breath. [...] is expected to extend beyond 2 midnights. [facility] Medical History Fracture of hip, left, [...] mg tablet 25 mg PO BID BLOOD [place] ESSURE 08/16/18 01/15/25 History pantoprazole 40 mg [...] Neut % (Auto) 58.4, Lymph % (Auto) 32.0,[place] % (Auto) 7.7, Eos % (Auto) 0.8, [...] Clarity Clear, Urine pH 6.0, Ur Specific [place] 1.010, Urine Protein 100 H, Urine Glucose [...] noted. Cardiomegaly. No pericardial effusion. Reading Location: [id number] Assessment & Plan Assessment/Plan (1) Pneumonia: QUALIFIERS: [...] twice daily. Give acetaminophen as needed for vwgu-zd-kobavutz (level 1-5/10) pain or fever. Give morphine [...] responsive hypotension Charges/Coding Visit Charges Inpatient E&M: 29916 Init Hosp L3 01/20/25 0606 <Electronically signed by Sandeep Carlton DO> Cosigner Signature (if applicable): CC: Dr. Sandeep Carlton DO; Dr. Ramone Smiley MD~ Signed [facility] Work Phone: [phone] Evaluation note* Diagnosis Onset Date Resolution Status [...] 2024 3:32am Hypertension chronic January 20 3:32am [facility] Work Phone: 1(161) 294-273405-23-2025 Evaluation note* Diagnosis Onset Date Resolution Status [...] 20, 2025 3:32am Obesity (BMI 30.0-34.9) inactive [facility] 2024 3:32am Aortic stenosis acute January 31, [...] diabetes mellitus chronic February 04, 2025 10:52am [facility] Work Phone: [phone]) [phone] Evaluation note* Diagnosis Onset Date Resolution Status [...] 20, 2025 3:32am Obesity (BMI 30.0-34.9) inactive [facility] 2024 3:32am Aortic stenosis acute January 31, [...] diabetes mellitus chronic February 04, 2025 10:52am [facility] Work Phone: [phone] Evaluation note* Diagnosis Onset Date Resolution Status [...] 20, 2025 3:32am Obesity (BMI 30.0-34.9) inactive [facility] 2024 3:32am Aortic stenosis acute January 31, [...] failure remov ed February 09, 2025 3:00pm [facility] Work Phone: 1([phone]) 419-243705-23-2025 Evaluation note* Diagnosis Onset Date Resolution Status [...] 2025 1:42pm Hypertension chronic January 31 1:42pm [facility] Work Phone: [phone]) [phone] Evaluation note* Diagnosis Onset Date Resolution Status [...] failure remov ed February 09, 2025 3:00pm [facility] Work Phone: [phone]) [phone] Evaluation note* Diagnosis Onset Date Resolution Status [...] Generalized weakness inactive February 15, 2025 2:01pm [facility] Work Phone: [phone] Evaluation note* Diagnosis Onset Date Resolution Status [...] Generalized weakness inactive February 15, 2025 2:01pm [facility] Work Phone: [phone]) [phone] Evaluation note* Diagnosis Onset Date Resolution Status [...] Back muscle spasm acute March 212024 11:03pm [facility] Work Phone: [phone]) [phone] Evaluation note* Diagnosis Onset Date Resolution Status [...] 11:03pm COPD exacerbation chronic March 212024 11:03pm [facility] Hospital Work Phone: 1(436) 957-759105-23-2025 Discharge summary Author Jeevan Yoder [facility] Note Date/Time January 20, 2025 2:43a m [facility] Medical Records Department [address] [place] [address] Emergency Department Summary 01/20/25 MR#: [id number] Acct: [id number] Name: OLGA DONALDSON Rep #:[id number] : 1945 80 From: Jeevan Yoder DO [...] has had progressive worsening shortness of breath. [facility] Medical History Fracture of [...] mg tablet 25 mg PO BID BLOOD [place] ESSURE 08/16/18 01/15/25 History pantoprazole 40 mg [...] % (Auto) 58.4 Lymph % (Auto) 32.0 [place] % (Auto) 7.7 Eos % (Auto) 0.8 [...] Clarity Clear Urine pH 6.0 Ur Specific Emmons 1.010 Urine Protein 100 H Urine Glucose [...] noted. Cardiomegaly. No pericardial effusion. Reading Location: [id number] Discharge Plan Triage Chief Complaint: Shortness of [...] MD [Primary Care Provider] - Print Language: Vietnamese What to do if you have Problems For any increased pain, shortness of breath, bleeding, nausea or vomiting, chestpain, or any unexpected problems, contact your Primary Care Provider. Call [facility] ([phone]) or report to the closest Emergency Room. Call 911 if necessary. 01/20/25 3802 <Electronically signed by Jeevan Yoder DO> Cosigner Signature (if applicable): CC: Dr. Ramone Smiley MD ~ Signed [facility] Work Phone: 1(936) 725-487305-23-2025 Radiology Diagnostic study [facility]05-18-2025 Discharge summary [facility] Medical Records Department [address] [place] [address] Emergency Department Summary 01/15/25 MR#: [id number] Acct: [id number] Name: OLGA DONLADSON Rep #:[id number] : 1945 80 From: Jeevan Yoder DO [...] of the antibiotic that was placed on. [facility] Medical History Fracture of [...] mg tablet 25 mg PO BID BLOOD [place] ESSURE 08/16/18 01/15/25 History pantoprazole 40 mg [...] follow commands and that she was at [facility] the year is 2024 Skin: Warm, [...] 72.7 H Lymph % (Auto) 18.1 L [place] % (Auto) 6.9 Eos % (Auto) 1.6 [...] IMPRESSION: Cardiomegaly with mild congestion. Reading Location: [facility] Discharge Plan Triage Chief Complaint: Shortness [...] with worsening symptoms or concerns. Print Language: Vietnamese Disposition Disposition: Home, Self Care What to do if you have Problems For any increased pain, shortness of breath, bleeding, nausea or vomiting, chestpain, or any unexpected problems, contact your Primary Care Provider. Call [facility] ([phone]) or report tothe closest Emergency Room. Call 911 if necessary. 01/15/25 184 Cosigner Signature (if applicable): CC: Dr. Ramone Smiley MD ~ Signed [facility]05-18-2025 Radiology Diagnostic study note [facility] Imaging Services [address] [place], [place] [address] Chest PA and Lateral MR#: [id number] Acct: [id number] Name: OLGA DONALDSON Rep #: [id number] : 1945 F 80 From: Kary Suarez MD PCP: Dr. Ramone Smiley MD Status: REG ER Study:Chest PA and Lateral Date of Exam: 01/15/25 Exam# [id number] Ordering Dr: Yoly Yoder DO EXAM: XR Chest, 2 Views CLINICAL INDICATION: CHEST PAIN TECHNIQUE: Frontal and lateral views of the chest. COMPARISON: No relevant prior studies available. FINDINGS: LUNGS AND PLEURAL SPACES: See below. HEART: Cardiomegaly with mild congestion. MEDIASTINUM: Unremarkable. Normal mediastinal contour. BONES/JOINTS: Unremarkable. No acute fracture. RAD/Chest PA and Lateral IMPRESSION: Cardiomegaly with mild congestion. Reading Location: [facility] CC: Dr. Ramone Smiley MD; Dr. Jeevan Yoder DO ~ Speeder Frame Tender: Signed [facility]05-18-2025 Discharge summary Author Jeevan Yoder [facility] Note Date/Time January 15, 2025 6:45p m [facility] Medical Records Department [address] [place] [address] Emergency Department Summary 01/15/25 MR#: [id number] Acct: [id number] Name: OLGA DONALDSON Rep #:[id number] : 1945 80 From: Jeevan Yoder DO [...] of the antibiotic that was placed on. [facility] Medical History Fracture of [...] mg tablet 25 mg PO BID BLOOD [place] ESSURE 08/16/18 01/15/25 History pantoprazole 40 mg [...] follow commands and that she was at [facility] the year is 2024 Skin: Warm, [...] 72.7 H Lymph % (Auto) 18.1 L [place] % (Auto) 6.9 Eos % (Auto) 1.6 [...] IMPRESSION: Cardiomegaly with mild congestion. Reading Location: [facility] Discharge Plan Triage Chief Complaint: Shortness of [...] with worsening symptoms or concerns. Print Language: Vietnamese Disposition Disposition: Home, Self Care What to do if you have Problems For any increased pain, shortness of breath, bleeding, nausea or vomiting, chestpain, or any unexpected problems, contact your Primary Care Provider. Call [facility] ([phone]) or report to the closest Emergency Room. Call 911 if necessary. 01/15/251844 <Electronically signed by Jeevan Yoder DO> Cosigner Signature (if applicable): CC: Dr. Ramone Smiley MD ~ Signed [facility] Work Phone: 1(378) 788-364405-10-2025 Discharge summary [facility] Medical Records Department [address] [place] [address] Emergency Department Summary 01/07/25 MR#: [id number] Acct: [id number] Name: OLGA DONALDSON Rep #:[id number] : 1945 80 From: Ethan Casanova PCP: [...] mg tablet 25 mg PO BID BLOOD [place] ESSURE 08/16/18 08/12/23 History pantoprazole 40 mg [...] clinician: N/A This note was generated with CUPS dictation software. It may contain incorrectwords, spelling, [...] % (Auto) 58.0 Lymph % (Auto) 31.8 [place] % (Auto) 7.6 Eos % (Auto) 1.9 [...] IMPRESSION: Cardiomegaly without overt failure. Reading Location: [facility] Discharge Plan Triage Chief Complaint: Shortness of [...] steroids is tomorrow. This was sent to [employer]. Print Language: Vietnamese Disposition Disposition: Home, Self Care What to do if you have Problems For any increased pain, shortness of breath, bleeding, nausea or vomiting, chestpain, or any unexpected problems, contact your Primary Care Provider. Call [facility] ([phone]) or report tothe closest Emergency Room. Call 911 if necessary. 01/07/25 1700 Cosigner Signature (if applicable): CC: Dr. Ramone Smiley MD ~ Signed [facility]05-10-2025 Radiology Diagnostic study note [facility] Imaging Services [address] [place] [address] Chest PA and Lateral MR#: [id number] Acct: [id number] Name: OLGA DONALDSON Rep #: [id number] : 1945 F 80 From: Kary Suarez MD PCP: Dr. Ramone Smiley MD Status: PRE ER Study:Chest PA and Lateral Date of Exam: 01/07/25 Exam# [id number] Ordering Dr: Ethan Suarez DO EXAM: XR Chest, 2 Views CLINICAL INDICATION: COUGH TECHNIQUE: Frontal and lateral views of the chest. COMPARISON: No relevant prior studies available. FINDINGS: LUNGS AND PLEURAL SPACES: Unremarkable. No consolidation. No pneumothorax. HEART: Cardiomegaly without overt failure. MEDIASTINUM: Unremarkable. Normal mediastinal contour. BONES/JOINTS: Unremarkable. No acute fracture. RAD/Chest PA and Lateral IMPRESSION: Cardiomegaly without overt failure. Reading Location: [facility] CC: Dr. Ramone Smiley MD; Dr. Ethan Suarez DO ~ Speeder Frame Tender: Signed [facility]05-10-2025 Discharge summary Author Ethan Suarez [facility] Note Date/Time January 07, 2025 5:00p m [facility] Medical Records Department [address] [place] [address] Emergency Department Summary 01/07/25 MR#: [id number] Acct: [id number] Name: OLGA DONALDSON Rep #:[id number] : 1945 80 From: Ethan Casanova PCP: [...] mg tablet 25 mg PO BID BLOOD [place] ESSURE 08/16/18 08/12/23 History pantoprazole 40 mg [...] clinician: N/A This note was generated with CUPS dictation software. It may contain incorrectwords, spelling, [...] % (Auto) 58.0 Lymph % (Auto) 31.8 [place] % (Auto) 7.6 Eos % (Auto) 1.9 [...] IMPRESSION: Cardiomegaly without overt failure. Reading Location: [facility] Discharge Plan Triage Chief Complaint: Shortness of [...] steroids is tomorrow. This was sent to [employer]. Print Language: Vietnamese Disposition Disposition: Home, Self Care What to do if you have Problems For any increased pain, shortness of breath, bleeding, nausea or vomiting, chestpain, or any unexpected problems, contact your Primary Care Provider. Call [facility] ([phone]) or report to the closest Emergency Room. Call 911 if necessary. 01/07/25 1700 <Electronically signed by Ethan Casanova> Cosigner Signature (if applicable): CC: Dr. Ramone Smiley MD ~ Signed [facility] Work Phone: 1(721) 791-489305-01-2024 Progress note Author [facility] December 30, 2023 12:34pm Note Date/Time December 30, 2023 12:35p [facility] Medical Records Department [address] [place] [address] Progress Note - Hospitalist 12/30/23 1228 MR#: [id number] Acct: [id number] Name: OLGA DONALDSON Rep #:[id number] : 1945 78 From: Sunny Blue PCP: Dr. Ramone Smiley MD Status:ADM IN Location: [place] [address] Reason for Visit Reason for Visit: Diagnoses [...] % (Auto) 63.9, Lymph % (Auto) 25.3, [place] % (Auto) 8.7, Eos % (Auto) 1.4, [...] Patient is a 78-year-old female who presented [facility] ED on 12/27/2023 with left hip pain after a fall at home. She got up from the couch toself catheter, got her walker turned and then lost balance and fell on her left hip. 1. Acute debility due to left impacted transcervical femoral neck fracture. ? Admit under inpatient status to [facility]. Orthopedics consulted. N.p.o. at midnight. [...] over the phone who lives in [place]. Patient is clinically doing well. Currently [...] disposition: TBD Charges/Coding Visit Charges Inpatient E&M: 66919 Subs Hosp L2 12/30/23 1234 <Electronically signed by Sunny Bell MD> Cosigner Signature (if applicable): CC: ~ Signed [facility] Work Phone: 1(329) 709-887604-30-2024 Progress note Author Sunny Bell [facility] December 29, 2023 12:47pm Note Date/Time December 29, 2023 9:3 0am [facility] Medical Records Department [address] [place] [address] Progress Note - Hospitalist 12/29/23 0929 MR#: [id number] Acct: [id number] Name: OLGA DONALDSON Rep #:[id number] : 1945 78 From: Sunny Blue PCP: Dr. Ramone Smiley MD Status:ADM IN Location: [place] [address] Reason for Visit Reason for Visit: Diagnoses [...] (Auto) 81.1 H, Lymph %(Auto) 9.5 L, [place] % (Auto) 8.5, Eos % (Auto) 0.1, [...] Patient is a 78-year-old female who presented [facility] ED on 12/27/2023 with left hip pain after a fall at home. She got up from the couch toself catheter, got her walker turned and then lost balance and fell on her left hip. 1. Acute debility due to left impacted transcervical femoral neck fracture. ? Admit under inpatient status to [facility]. Orthopedics consulted. N.p.o. at midnight. [...] over the phone who lives in [facility] [place]. Patient is clinically doing well. Currently [...] disposition: TBD Charges/Coding Visit Charges Inpatient E&M: 86982 Subs Hosp L2 12/29/23 7978 <Electronically signed by Sunny Bell MD> Cosigner Signature (if applicable): CC: ~ Signed [facility] Work Phone: 1(883) 103-719304-30-2024 Progress note Author Sj Delacruz [facility] December 29, 2023 11:56am Note Date/Time December 29, 2023 11: 56am [facility] Medical Records Department [address] [place] [address] Progress Note - Orthopedic 12/29/23 1152 MR#: [id number] Acct: [id number] Name: OLGA DONALDSON Rep #:[id number] : 1945 78 From: Sj BHATTI PA-C PCP: Dr. Ramone Smiley MD Status:ADM IN Location: MS3 JS757-1 Subjective Subjective Patient sitting at bedside watching [...] (Auto) 81.1 H, Lymph %(Auto) 9.5 L, [place] % (Auto) 8.5, Eos % (Auto) 0.1, [...] 14:25 EDT Reading Location ID and State: [facility] / [place] , Service support , Hip X-Ray 12/28/23 [...] Cosigner Signature (if applicable): CC: ~ Signed [facility] Work Phone: 1(519) 223-708704-29-2024 Consult note Author Gabriel [facility] December 28, 2023 12:59pm Note Date/Time December 28, 2023 12: 59pm [facility] Medical Records Department [address] [place] [address] Consultation - Orthopedics 12/28/23 1252 MR#: [id number] Acct: [id number] Name: OLGA DONALDSON Rep #:[id number] : 1945 78 From: Gabriel Blue PCP: Dr. Ramone Smiley MD Status:ADM IN Location: [place] [address]-1 HPI Consult Data Date of Consult: 12/28/23 [...] She denies any previous DVTs or PEs. [facility] Medical History Anemia Anxiety Aortic stenosis [...] % (Auto) 51.7, Lymph % (Auto) 37.1, [place] % (Auto) 6.6, Eos % (Auto) 3.1, [...] 23:29 EDT Reading Location ID and State: [facility] / [employer] , Service support , Hip/Pelvis X-Ray 12/27/23 23:05 IMPRESSION: Acute impacted fracture of the transcervical femoral neck. Electronically Signed: Weston Patel MD at 23:30 EDT Reading Location ID and State: [id number] / [employer] , Service support , Assessment & [...] rehab. Patient's projected recovery will likely require residential or intensive inpatient rehabilitation prior to discharge back home. (2) Falls: (3) Weakness: (4) Microcytic anemia: (5) Chronic renal failure, stage 3 (moderate): QUALIFIERS: Chronic kidney disease stage 3 subtype: unspecified whether 3a or 3b Qualified Code(s): N18.30 - Chronic kidney disease, stage 3 unspecified 12/28/23 1259 <Electronically signed by Gabriel Byrd MD> Cosigner Signature (if applicable): CC: Dr. Ramone Smiley MD~ Signed [facility] Work Phone: 1(752) 148-514404-29-2024 Procedure [facility] 12-28-2023 Progress note Author Sunny Bell [facility] December 28, 2023 11:23am Note Date/Time December 28, 2023 9:5 2am [facility] Medical Records Department [address] [place] [address] Progress Note - Hospitalist 12/28/23 0949 MR#: [id number] Acct: [id number] Name: OLGA DONALDOSN Rep #:[id number] : 1945 78 From: Sunny Blue PCP: Dr. Ramone Smiley MD Status:[facility] Reason for Visit Reason for Visit: Diagnoses [...] % (Auto) 51.7, Lymph % (Auto) 37.1, [place] % (Auto) 6.6, Eos % (Auto) 3.1, [...] Patient is a 78-year-old female who presented [facility] ED on 12/27/2023 with left hip pain after a fall at home. She got up from the couch toself catheter, got her walker turned and then lost balance and fell on her left hip. 1. Acute debility due to left impacted transcervical femoral neck fracture. ? Admit under inpatient status to [facility]. Orthopedics consulted. N.p.o. at midnight. [...] disposition: TBD Charges/Coding Visit Charges Inpatient E&M: 67129 Subs Hosp L2 12/28/23 1123 <Electronically signed by Sunny Bell MD> Cosigner Signature (if applicable): CC: ~ Signed [facility] Work Phone: 1(498) 483-343704-29-2024 History and physical note Author Nestor Bartlett [facility] December 28, 2023 4:47am Note Date/Time December 27, 2023 11: 30pm [facility] Medical Records Department [address] [place] [address] H&P Exam - Hospitalist 12/27/23 2330 MR#: [id number] Acct: [id number] Name: OLGA DONALDSON Rep #:[id number] : 1945 78 From: Nestor roman DO PCP: Dr. Ramone Smiley MD Status:ADM IN [place] [facility] [place]-[place] HPI - General General Date of Admission: 12/27/23 Date of Service: 12/27/23 Chief Complaint: Left hip fracture HPI Narrative OLGA DONALDSON, is a 78 F who presented to [facility] ED on 12/27/2023 with left hip [...] Patient will be admitted for further management. [facility] Medical History Anemia Anxiety Aortic stenosis [...] % (Auto) 51.7, Lymph % (Auto) 37.1, [place] % (Auto) 6.6, Eos % (Auto) 3.1, [...] Patient is a 78-year-old female who presented [facility] ED on 12/27/2023 with left hip pain after a fall at home. 1. Left femoral neck fracture ? Admit under inpatient status to [facility]. Orthopedics consulted. N.p.o. at midnight. [...] 75 minutes. Charges/Coding Visit Charges Inpatient E&M: 22662 Init Hosp L3 12/28/23 6637 <Electronically signed by Nestor Bartlett DO> Cosigner Signature (if applicable): CC: Dr. Nestor Bartlett DO; Dr. Ramone Smiley MD~ Signed [facility] Work Phone: 1(607) 880-562504-29-2024 Discharge summary Author Queta Cortez [facility] December 28, 2023 2:33am Note Date/Time December 27, 2023 10: 23pm [facility] Medical Records Department [address] [place] [address] Emergency Department Summary 12/27/23 MR#: [id number] Acct: [id number] Name: OLGA DONALDSON Rep #:[id number] : 1945 78 From: Queta Cortez MD PCP: Dr. Ramone Smiley MD Status:ADM IN Location: [place] [address]-1 HPI HPI - Fall History of Present [...] aspirin but no other form of anticoagulant. [facility] Medical History Anemia Anxiety [...] mg chewable tablet 81 mg PO DAILY [facility] 01/21/16 [History Last Taken 08/12/23] [...] Medical decision making narrative: Patient placed on radiographer cardiac catheterization. Patient given morphine and Zofran for pain [...] % (Auto) 51.7 Lymph % (Auto) 37.1 [place] % (Auto) 6.6 Eos % (Auto) 3.1 [...] his custodial. Dr. Byrd is on-call for [facility] and I will speak with [facility] and need for surgical repair. Discharge Plan Dx/Rx/DC Orders Clinical Impression: Fracture of hip, left, closed Disposition Disposition: Acute Care Hospital [facility] What to do if you have Problems For any increased pain, shortness of breath, bleeding, nausea or vomiting, chestpain, or any unexpected problems, contact your Primary Care Provider. Call [facility] ([phone]) or report to the closest Emergency Room. Call 911 if necessary. 12/28/23 0233 <Electronically signed by Queta Cortez MD> Cosigner Signature (if applicable): CC: Dr. Ramone Smiley MD ~ Signed [facility] Work Phone: 1(338) 850-118612-18-2023 Consult note Author Derrick Hallman [facility] August 17, 2023 11:38am Note Date/Time August 17, 2023 11:38am [facility] Medical Records Department [address] [place] [address] Counseling Note - Pharmacy 08/17/23 1137 MR#: [id number] Acct: [id number] Name: OLGA DONALDSON Rep #:[id number] : 1945 78 From: Derrick Hallman PCP: Dr. Ramone Smiley MD Status:ADM IN Y Location: [place] [address] Pharmacy [facility] Service has performed discharge medication [...] mg chewable tablet 81 mg PO DAILY [facility] 01/21/16 albuterol sulfate 90 mcg/actuation aerosol [...] Signature (if applicable): Date CC: ~ Signed [facility] Work Phone: 1(440) 347-383112-18-2023 Discharge summary Author Sandeep Denson [facility] August 17, 2023 11:20am Note Date/Time August 17, 2023 11:12am [facility] Medical Records Department [address] [place] [address] Discharge Summary 08/17/23 1111 MR#: [id number] Acct: [id number] Name: OLGA DONALDSON Rep #:[id number] : 1945 78 From: Sandeep Denson MD PCP: Dr. Ramone Smiley MD Status:ADM IN Location: [place] [id number]- 1 Providers Date of Admission: 08/13/23 Date [...] mg chewable tablet 81 mg PO DAILY [facility] 01/21/16 albuterol sulfate 90 mcg/actuation [...] Requested for PT OT eval and social security specialist to assist with discharge planning 4. 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 Sandeep Denson MD; Dr. Ramone Smiley MD~ Signed [facility] Work Phone: 1(114) 426-394812-17-2023 Progress [facility] 16, 2023 1:08pm Note Date/Time August 16, 2023 1:08pm [facility] Medical Records Department [address] [place] [address] Progress Note - Hospitalist 08/16/23 1300 MR#: [id number] Acct: [id number] Name: OLGA DONALDSON Rep #:[id number] : 1945 78 From: Nestor roman DO PCP: Dr. 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 Charges/Coding Visit Charges Inpatient E&M: 44088 Subs Hosp L2 08/16/23 1308 <Electronically signed by Nestor Bartlett DO> Cosigner Signature (if applicable): CC: ~ Signed [facility] Work Phone: 1(283) 341-934812-16-2023 Progress note Author Nestor [facility] August 15, 2023 1:28pm Note Date/Time August 15, 2023 1:24pm [facility] Medical Records Department [address] [facility] [place] [address] Progress Note - Hospitalist 08/15/23 1317 MR#: [id number] Acct: [id number] Name: OLGA DONALDSON Rep #:[id number] : 1945 78 From: Nestor roman DO PCP: Dr. 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 3. LIA, resolved [...] 35 minutes. Charges/Coding Visit Charges Inpatient E&M: 82113 Subs Hosp L2 08/15/23 1328 <Electronically signed by Nestor Bartlett DO> Cosigner Signature (if applicable): CC: ~ Signed [facility] Work Phone: 1(778) 883-288712-15-2023 Progress note Author Nsetor [facility] August 14, 2023 3:08pm Note Date/Time August 14, 2023 2:58pm [facility] Medical Records Department [address] [place] [address] Progress Note - Hospitalist 08/14/23 1454 MR#: [id number] Acct: [id number] Name: OLGA DONALDSON Rep #:[id number] : 1945 78 From: Nestor roman DO PCP: Dr. 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 3. LIA, resolved [...] 35 minutes. Charges/Coding Visit Charges Inpatient E&M: 98133 Subs Hosp L2 08/14/23 1508 <Electronically signed by Nestor Bartlett DO> Cosigner Signature (if applicable): CC: ~ Signed [facility] Work Phone: 1(961) 518-227712-14-2023 Discharge summary Author [facility] August 13, 2023 3:29pm Note Date/Time August 13, 2023 10:40am [facility] Medical Records Department [address] [place] [address] Emergency Department Summary 08/13/23 MR#: [id number] Acct: [id number] Name: OLGA DONALDSON Rep #:[id number] : 1945 78 From: Robert Allison DO PCP: Dr. Ramone Smiley MD Status:ADM IN Location: [place] [address] HPI History of Present Illness Chief Complaint: [...] She denies chest pain. She self caths. [facility] Medical History Anemia Anxiety [...] mg chewable tablet 81 mg PO DAILY [facility] 01/21/16 [History Last Taken 08/12/23] albuterol [...] 82.7 H Lymph % (Auto) 9.4 L [place] % (Auto) 6.1 Eos % (Auto) 0.1 [...] Sl. Cloudy Urine pH 5.0 Ur Specific Emmons 1.015 Urine Protein 30 H Urine Glucose [...] Acute hyponatremia Disposition Disposition: Acute Care Hospital [facility] Discharge Date/Time: 08/13/23 14:54 What to do if you have Problems For any increased pain, shortness of breath, bleeding, nausea or vomiting, chestpain, or any unexpected problems, contact your Primary Care Provider. Call [facility] ([phone]) or report to the closest Emergency Room. Call 911 if necessary. 08/13/23 1529 <Electronically signed by Robert Allison DO> Cosigner Signature (if applicable): CC: Dr. Ramone Smiley MD ~ Signed [facility] Work Phone: 1(693) 933-439012-14-2023 History and physical note Author Heydi Amaya [facility] August 13, 2023 2:47pm Note Date/Time August 13, 2023 2:33pm [facility] Medical Records Department [address] [place] [address] H&P Exam - Hospitalist 08/13/23 1431 MR#: [id number] Acct: [id number] Name: OLGA DONALDSON Rep #:[id number] : 1945 78 From: Heydi Amaya MD PCP: Dr. Ramone Smiley MD Status:ADM IN Location: [place] [address] HPI - General General Date of Admission: 08/13/23 Date of Service: 08/13/23 Chief Complaint: Increasing weakness HPI Narrative OLGA DONALDSON, is [id number] female history of GERD, COPD, hypertension, diabetes, chronic urinary retention with self cathing presented to [facility] 08/13/2023 with increasing generalized weakness and [...] No other acute complaints at this time. [facility] Medical History Anemia Anxiety Aortic stenosis [...] (Auto) 82.7 H, Lymph% (Auto) 9.4 L, [place] % (Auto) 6.1, Eos % (Auto) 0.1, [...] Sl. Cloudy, Urine pH 5.0, Ur Specific Emmons 1.015, Urine Protein 30 H, Urine Glucose [...] Amaya MD Charges/Coding Visit Charges Inpatient E&M: 40611 Init Hosp L2 08/13/23 1447 <Electronically signed by Heydi Amaya MD> Cosigner Signature (if applicable): CC: Dr. Ramone Smiley MD; Dr. Heydi Amaya MD~ Signed [facility] Work Phone: 1(305) 930-341905-31-[address] Lockwood [facility] January 28, 2023 4:30pm Note Date/Time January 28, 2023 3:17p m [facility] Medical Records Department [address] [place] [address] Emergency Department Summary 01/28/23 MR#: [id number] Acct: [id number] Name: OLGA DONALDSON Rep #:[id number] : 1945 78 From: Joseph Lockwood MD [...] pain which she has every single day. [facility] Medical History Anemia Anxiety [...] unit/mL subcutaneous solution 22 unit SQ BIDCM bdifcswx99/03/20 [History Last Taken Unknown] insulin detemir U-100 [...] % (Auto) 56.6 Lymph % (Auto) 34.2 [place] % (Auto) 5.6 Eos % (Auto) 2.6 [...] rhythm with a rate of 86. Normal [place] and QTc intervals. No ischemic changes. Interpreted [...] UNIT/ML solution 22 unit SQ BIDCM vitamin A-cjokgrdlewqo-lbzhola 500 MG tablet,chewable 250 mg PO DAILY Primary Care Provider: Ramone Smiley Referrals: Ramone Smiley MD [Primary Care Provider] - 3-5 Days Disposition Disposition: Home, Self Care What to do if you have Problems For any increased pain, shortness of breath, bleeding, nausea or vomiting, chestpain, or any unexpected problems, contact your Primary Care Provider. Call [facility] ([phone]) or report to the closest Emergency Room. Call 911 if necessary. 01/28/23 1630 <Electronically signed by Joseph Lockwood MD> Cosigner Signature (if applicable): CC: Dr. Ramone Smiley MD ~ Signed [facility] Work Phone: 1([phone]) 607-665009-07-2022 NoteHNO ID: [id number] Author: 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 APRN.[facility] [employer] Service: ? Author Type: Nurse Practitioner Type: [...] an every 2-week basis for 4 cycles (CALGB-30206). Completed a year of trastuzumab 06/16/06. Referred back or anemia. Admitted to [facility] 12/02/2019 for chest pain with ambulation. [...] 1.00 - 4.00 k/uL 2.70 2.30 2.03 [place]% % 7.0 6.6 6.9 Abs [place] <0.87 k/uL 0.49 0.47 0.47 Eosin% % [...] loss - ICD9: 280.0, (more content not included)...[facility]09-07-2022 History of Present illness Narrative* 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 APRN.[facility] - 05/07/2022 1:33 PM EDT Chief Complaint [...] an every 2-week basis for 4 cycles (CALGB-75895). Completed a year of trastuzumab 06/16/06. Referred back or anemia. Admitted to [facility] 12/02/2019 for chest pain with ambulation. [...] 1.00 - 4.00 k/uL 2.70 2.30 2.03 [place]% % 7.0 6.6 6.9 Abs [place] <0.87 k/uL 0.49 0.47 0.47 Eosin% % [...] visit. 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 APRN.MARLI documented [facility]22 Miscellaneous Notes* Telephone Encounter - Stacie Varner LPN - 02/10/2022 8:33 AM EDT Pt called and notified, pt voices understanding. Stacie Varner LPN * Telephone Encounter - Joseph Rolle DO - 02/10/2022 6:20 AM EDT Can let her know CBC and iron levels doing well. Follow up as scheduled. Joseph Rolle DO documented in this encounterBelle[facility]01-31-2022 Miscellaneous Notes* Telephone Encounter - Joseph [...] filed. 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 Add on for 5 more doses of iron sucrose and repeat CBC/Iron studies about a month after completing. Joseph Rolle DO documented in this encounterBellevue HospitalConlt note Author Eboni Chan [facility] December 30, 2023 2:23pm Note Date/Time December 30, 2023 2:24pm [facility] Medical Records Department [address] [place] [address] Counseling Note - Pharmacy 12/30/23 1423 MR#: [id number] Acct: [id number] Name: OLGA DONALDSON Rep #:[id number] : 1945 78 From: Eboni Chan PCP: Dr. Ramone Smiley MD Status:ADM IN Location: [place] [address] Pharmacy [place] Med Reconciliation Pharmacy Service has performed discharge medication reconciliation for this patient. The patient's discharge medication list was reviewed for discrepancies and discrepancies were resolved. Medications at Discharge Home Medications aspirin 81 mg chewable tablet 81 mg PO DAILY [facility] 01/21/16 albuterol sulfate 90 [...] bisacodyl 10 mg rectal suppository 10 mg [place] DAILY #0 ea 12/30/23 insulin glargine-yfgn 100 [...] Signature (if applicable): Date CC: ~ Signed [facility] Work Phone: Consult note Author Eboni Chan [facility] Note Date/Time January 24, 2025 2:52p [facility] Medical Records Department [address] [place] [address] Counseling Note - Pharmacy 01/24/25 1451 MR#: [id number] Acct: [id number] Name: OLGA DONALDSON Rep #:[id number] : 1945 80 From: Eboni Chan PCP: Dr. Ramone Smiley MD Status:ADM IN [facility] Counseling Pharmacy Service has performed discharge [...] mg chewable tablet 81 mg PO DAILY [facility] 01/21/16 magnesium oxide 400 mg [...] Signature (if applicable): Date CC: ~ Signed [facility] Work Phone: Discharge summary Author Sunny Bell [facility] December 30, 2023 2:14pm Note Date/Time December 30, 2023 2:05pm [facility] Medical Records Department [address] [place] [address] Transfer to [facility] MR#: [id number] Acct: [id number] Name: OLGA DONALDSON Rep #:[id number] : 1945 78 From: Sunny Blue PCP: Dr. Ramone Smiley MD Status:ADM IN Certification of patient admission REQUIRED AT TIME OF ADMISSION. I CERTIFY THAT POST-HOSPITAL ECF SERVICES ARE REQUIRED TO BE GIVEN ON AN IN-PATIENT BASIS BECAUSE OF THE ABOVE NAMED PATIENT'S NEED FOR ALF CARE ON A CONTINUING BASIS FOR THE [...] Patient is a 78-year-old female who presented [facility] ED on 12/27/2023 with left hip pain after a fall at home. She got up from the couch toself catheter, got her walker turned and then lost balance and fell on her left hip. 1. Acute debility due to left impacted transcervical femoral neck fracture. ? Admit under inpatient status to [facility]. Orthopedics consulted. N.p.o. at midnight. [...] over the phone who lives in [facility]. Patient is clinically doing well. Currently [...] 0RF bisacodyl 10 mg Suppository 10 mg [place] DAILY Qty: 0 0RF insulin glargine-yfgn 100 [...] in before D/C Order can be placed): [facility] 12/30/23 1414 <Electronically signed by Sunny Bell MD> Cosigner Signature (if applicable): CC: Dr. Nestor Bartlett DO; Dr. Ramone Smiley MD; Dr. Gabriel Byrd MD ~ [facility] Work Phone: Discharge summary Author Sunny Bell [facility] December 30, 2023 2:26pm Note Date/Time December 30, 2023 2:21pm [facility] Medical Records Department [address] [place] [address] Discharge Summary 12/30/23 1414 MR#: [id number] Acct: [id number] Name: OLGA DONALDSON Rep #:[id number] : 1945 78 From: Sunny Blue PCP: Dr. Ramone Smiley MD Status:ADM IN [facility] Date of Admission: 12/27/23 Date of [...] Patient is a 78-year-old female who presented [facility] ED on 12/27/2023 with left hip pain after a fall at home. She got up from the couch toself catheter, got her walker turned and then lost balance and fell on her left hip. 1. Acute debility due to left impacted transcervical femoral neck fracture. ? Admit under inpatient status to [facility]. Orthopedics consulted. N.p.o. at midnight. [...] over the phone who lives in [facility]. Patient is clinically doing well. Currently [...] mg chewable tablet 81 mg PO DAILY [facility] 01/21/16 albuterol sulfate 90 mcg/actuation aerosol [...] bisacodyl 10 mg rectal suppository 10 mg [place] DAILY #0 ea 12/30/23 insulin glargine-yfgn 100 [...] % (Auto) 63.9, Lymph % (Auto) 25.3, [place] % (Auto) 8.7, Eos % (Auto) 1.4, [...] 0RF bisacodyl 10 mg Suppository 10 mg [place] DAILY Qty: 0 0RF insulin glargine-yfgn 100 [...] in before D/C Order can be placed): [facility] Charges/Coding Visit Charges Inpatient E&M: 37509 Disch Hosp >30min 12/30/23 1426 <Electronically signed by Sunny Bell MD> Cosigner Signature (if applicable): CC: Dr. Ramone Smiley MD; Dr. Sunny Bell MD; Dr. Gabriel Byrd MD~ Signed [facility] Work Phone: Discharge summary Author [facility] Note Date/Time January 24, 2025 1:27p m [facility] Medical Records Department [address] [place] [address] Instructions for Home/Discharge Instructions 01/24/25 1326 MR#: [id number] Acct: [id number] Name: OLGA DONALDSON Rep #:[id number] : 1945 80 From: Melba Hartmann MD [...] DO; Dr. Marcelina Soto MD ~ Signed [facility] Work Phone: Discharge summary Author [facility] Note Date/Time January 26, 2025 5:10a m [facility] Medical Records Department [address] [facility] [place] [address] Emergency Department Summary 01/26/25 MR#: [id number] Acct: [id number] Name: OLGA DONALDSON Rep #:[id number] : 1945 80 From: Jg Bryan DO [...] symptoms and therefore comes in for evaluation [facility] Medical History Fracture of [...] mg tablet 25 mg PO BID BLOOD [place] ESSURE 08/16/18 01/15/25 History pantoprazole 40 mg [...] cardiac dysrhythmia. Patient was kept on the radiographer cardiac catheterization and there was no dysrhythmia noted. Blood [...] % (Auto) 65.0 Lymph % (Auto) 25.1 [place] % (Auto) 6.7 Eos % (Auto) 2.8 [...] you have any further concerns Print Language: Vietnamese Disposition Disposition: Home, Self Care What to do if you have Problems For any increased pain, shortness of breath, bleeding, nausea or vomiting, chestpain, or any unexpected problems, contact your Primary Care Provider. Call [facility] ([phone]) or report to the closest Emergency Room. Call 911 if necessary. 01/26/25 0510 <Electronically signed by Jg Bryan DO> Cosigner Signature (if applicable): CC: Dr. Ramone Smiley MD ~ Signed [facility] Work Phone: Discharge summary Author Aj Holley [facility] Note Date/Time February 04, 2025 10:27 am [facility] Medical Records Department [address] [place] [address] Emergency Department Summary 02/04/25 MR#: [id number] Acct: [id number] Name: OLGA DONALDSON Rep #:[id number] : 1945 80 From: Aj Holley MD [...] of the couch, and has no pain. [facility] Medical History Elevated troponin [...] mg tablet 25 mg PO BID BLOOD [place] ESSURE 08/16/18 01/15/25 History pantoprazole 40 mg [...] (Reviewed 01/31/25 @ 16:15 by Whitney Cao MARKETING SUMMER INTERN, MARKETING SUMMER INTERN-C) Daughter Breast cancer Father Hypertension Sister Cancer [...] 75.4 H Lymph % (Auto) 15.7 L [place] % (Auto) 6.6 Eos % (Auto) 1.7 [...] MD [Primary Care Provider] - Print Language: Vietnamese What to do if you have Problems For any increased pain, shortness of breath, bleeding, nausea or vomiting, chestpain, or any unexpected problems, contact your Primary Care Provider. Call [facility] ([phone]) or report to the closest Emergency Room. [...] 11.8 and 37.9. White count slightly elevated [place] 0.2 thousand. There is slight shift with [...] cc: Dr. Ramone Smiley MD ~* Signed [facility] Work Phone: Evaluation note* Diagnosis Onset Date Resolution Status Multiple thyroid nodules acu te Chronic renal failure, stage 3 (moderate) chronic Hypercalcemia chronic Abscess acute Abscess acute Abscess acute [facility] Work Phone: Evaluation note* Diagnosis Iron deficiency anemia due to chronic blood loss- Primary Iron deficiency anemia secondary to blood loss (chronic) documented in this encounter [facility] note* Diagnosis Onset Date Resolution Status Abscess acute Abscess acute Abscess acute Abscess acute Abscess acute Paronychia of left index finger acute [facility] Work Phone: Evaluation note* Diagnosis Iron deficiency anemia due to chronic blood loss- Primary Iron deficiency anemia secondary to blood loss (chronic) documented in this encounter [facility] note* Diagnosis Anemia, unspecified type- Primary documented in this encounter [facility] note* Diagnosis Iron deficiency anemia due to chronic blood loss- Primary Iron deficiency anemia secondary to blood loss (chronic) documented in this encounter [facility] noteNo assessment information availableWAultman Alliance [facility] Work Phone: Evaluation note* Diagnosis Onset Date Resolution Status Gastroenteritis acute [facility] Work Phone: Evaluation note* Diagnosis Onset Date Resolution Status Gastroenteritis acute Falls acute Weakness acute Asthma chronic COPD (chronic obstructive pulmonary disease) chronic GERD (gastroesophageal reflux disease) chronic History of malignant neoplasm of breast chronic Hypertension chronic Neurogenic bladder chronic Type 2 diabetes mellitus chr onic Acute hyponatremia resolved Acute UTI resolved LIA (acute kidney injury) re solved [facility] Work Phone: Evaluation note* Diagnosis Onset Date Resolution Status Fracture of hip, left, closed acute [facility] Work Phone: Evaluation note* Diagnosis Onset Date Resolution Status Falls acute Fracture of hip, left, closed acute Microcytic anemia acute Weakness acute Chronic renal failure, stage 3 (moderate) chronic Hypercalcemia chronic [facility] Work Phone: Evaluation note* Diagnosis Onset Date Resolution Status Gastroenteritis acute Acute hyponatremia acute Acute UTI acute LIA (acute kidney injury) ac jason [place] acute Weakness acute Asthma chronic COPD (chronic obstructive pulmonary disease) chronic GERD (gastroesophageal reflux disease) chronic History of malignant neoplasm of breast chronic Hypertension chronic Neurogenic bladder chronic Type 2 diabetes mellitus chr onic [facility] Work Phone: History and physical note Author Heydi Amaya [facility] August 13, 2023 2:47pm Note Date/Time August 13, 2023 2:33pm [facility] Medical Records Department [address] [place] [address] H&P Exam - Hospitalist 08/13/23 1431 MR#: [id number] Acct: [id number] Name: OLGA DONALDSON Rep #:[id number] : 1945 78 From: Heydi Amaya MD PCP: Dr. Ramone Smiley MD Status:ADM IN [facility] HPI - General General Date of Admission: 08/13/23 Date of Service: 08/13/23 Chief Complaint: Increasing weakness HPI Narrative OLGA DONALDSON, is [id number] female history of GERD, COPD, hypertension, diabetes, chronic urinary retention with self cathing presented to [facility] 08/13/2023 with increasing generalized weakness and [...] No other acute complaints at this time. [facility] Medical History Anemia Anxiety Aortic stenosis [...] mg chewable tablet 81 mg PO DAILY [facility] 01/21/16 [History Last Taken 08/12/23] albuterol [...] (Auto) 82.7 H, Lymph% (Auto) 9.4 L, [place] % (Auto) 6.1, Eos % (Auto) 0.1, [...] Sl. Cloudy, Urine pH 5.0, Ur Specific Emm[place] 1.015, Urine Protein 30 H, Urine Glucose [...] Amaya MD Charges/Coding Visit Charges Inpatient E&M: 22994 Init Hosp L2 08/13/23 1447 <Electronically signed by Heydi Amaya MD> Cosigner Signature (if applicable): CC: Dr. Ramone Smiley MD; Dr. Heydi Amaya MD~ Signed [facility] Work Phone: History and physical note Author Tono Kitchenak [facility] Note Date/Time February 09, 2025 3:52 pm [facility] Medical Records Department [address] [place] [address] H&P Exam - Hospitalist 02/09/25 1525 MR#: [id number] Acct: [id number] Name: OLGA DONALDSON Rep #:[id number] : 1945 80 From: Tono BHATTI PA [...] tightness, no dizziness or lightheadedness, no palpitations. [facility] Medical History COPD with exacerbation Anemia [...] mg tablet 25 mg PO BID BLOOD [place] ESSURE 08/16/18 01/15/25 History pantoprazole 40 mg [...] (Auto) 86.9 H, Lymph % (Auto) 7.3L, [place] % (Auto) 4.5, Eos % (Auto) 0.1, [...] degree of bibasilar linear atelectasis. Reading Location: [place] [address] Assessment & Plan Assessment/Plan (1) COPD exacerbation: [...] DAVY Dykes; Dr. Ramone Smiley MD~ Signed [facility] Work Phone: History and physical note Author Nestor Bartlett [facility] Note Date/Time February 15, 2025 2:57 pm [facility] Medical Records Department [address] [place] [address] H&P Exam - Hospitalist 02/15/25 1401 MR#: [id number] Acct: [id number] Name: OLGA DONALDSON Rep #:[id number] : 1945 80 From: Nestor roman DO PCP: Dr. Ramone Smiley MD Status:ADM JESS [place] [facility] HPI - General General Date of Admission: 02/15/25 Date of Service: 02/15/25 Chief Complaint: Shortness of breath, acute on chronic debility HPI Narrative OLGA DONALDSON, is a 80 F who presented to [facility] ED on 02/15/2025 with shortness of [...] currently. Will be admitted for further management. [facility] Medical History (Updated 02/15/25 @ 13:15 [...] mg tablet 25 mg PO BID BLOOD [place] ESSURE 08/16/18 01/15/25 History pantoprazole 40 mg [...] 82.5 H, Lymph % (Auto) 10.9 L, [place] % (Auto) 4.8, Eos % (Auto) 0.7, [...] evidence of acute cardiopulmonary process. Reading [facility] Assessment & Plan Assessment/Plan (1) Generalized weakness: PLAN: Plan Patient is an 80-year-old female who presented [facility] ED on 02/15/2025 with recurrent shortness of breath and acute on chronic debility. 1. Acute on chronic debility ? Admit under observation status to [facility]. PT/OT/case management consulted. Multiple recent [...] 75 minutes. Charges/Coding Visit Charges Inpatient E&M: 83279 Init Hosp L3 02/15/25 2392 <Electronically signed by Nestor Bartlett DO> Cosigner Signature (if applicable): CC: Dr. Nestor Bartlett DO; Dr. Ramone Smiley MD~ Signed [facility] Work Phone: Hospital Discharge instructions Additional Instructions Chest x-ray negative. COVID, flu, RSV negative. Your glucose 321 the lab normal gap. You are given 10 units of short acting insulin. You were started on antibiotics and steroids. Your glucose will be elevated with the steroids. Continue insulin including your sliding scale. Next dose of antibiotics steroids is tomorrow. This was sent to [facility] Work Phone: Hospital Discharge instructions Additional Instructions Take medications as prescribed. Follow-up your doctor in outpatient setting. Return with worsening symptoms or concerns.[facility] Work Phone: Hospital Discharge instructions Additional [...] the ER should you have any further concernsWooOhioHealth [facility] Work Phone: Hospital Discharge instructions Additional Instructions Continue your steroids and your nebulizer treatments as previously directed. Your chest x-ray did not show pneumonia today. Continue to wear your nasal cannula oxygen.[facility] Work Phone: Hospital Discharge instructionsAdditional Instructions Follow-up with your doctor in outpatient setting. Follow-up and urine culture. Take antibiotic as prescribed sent to your pharmacy. Urinalysis did show evidence of infection. Take MiraLAX twice daily until you are having good bowel movements then you can reduce to once daily. Return with any other concerns or worsening symptomsWAultman Alliance Community Hospital Work Phone: Reason for referral (narrative)No reason for referral information availableWAultman Alliance Community Hospital Work Phone: Summary Purpose Family History [...] Yes December 02, 2021 8:47am Power of Hvac Tech Yes December 02 8:47am Documents on File Type Date Recorded Patient Chief Warden Expl anation Advance Directive(s) 05/12/2016 10:06 AM Advance Directive(s) 04/30/2016 11:10 AM Advance Directive(s) 02/19/2016 5:55 AM Advance Directive(s) 02/14/2016 3:07 PM Advance Directive Response Recorded Date/ Time Advance Directives Yes December 02 7:47am Living Will Yes July 14, 2 022 2:52pm Power of Hvac Tech Yes July 14, 2022 2:52pm Name of Medical Power of Hvac Tech son July 14, 2022 2:52pm Advance Directive Response Recorded Date/ Time Advance Directives Yes December 02 8:47am Living Will Yes July 14, 2 022 3:52pm Power of Hvac Tech Yes July 14, 2022 3:52pm Advance Directive Response Recorded Date/ Time Name of Medical Power of Hvac Tech SHANTELLE January 28, 2023 3:11pm Advance Directives Yes December 02 8:47am Living Will Yes January 28, 2023 3 :11pm Power of Hvac Tech Yes January 28, 2023 3:11pm Advance Directive Response Recorded Date/ Time Name of Medical Power of Hvac Tech Ursula Donaldson July 18, 2023 11:35pm Advance Directives Yes December 02 7:47am Living Will Yes July 18, 023 11:35pm Power of Hvac Tech Yes July 18, 2023 11:35pm Advance Directive Response Recorded Date/ Time Name of Medical Power of Hvac Tech . August 07, 2023 9:45pm Advance Directives Yes December 02 7:47am Living Will No August 13, 023 3:22pm Power of Hvac Tech No August 13, 2023 3:22pm Name of Medical Power of Hvac Tech Ursula Donaldson July 18, 2023 11:35pm Advance Directive Response Recorded Date/ Time Advance Directives Yes December 02 8:47am Living Will No August 13, 023 4:22pm Power of Hvac Tech No August 13, 2023 4:22pm Advance Directive Response Recorded Date/ Time Advance Directives Yes December 02 8:47am Living Will No December 27, 2023 11:02pm Power of Hvac Tech No December 26 11:02pm Advance Directive Response Recorded Date/ Time Advance Directives Yes December 02 8:47am Living Will No December 28, 2023 12:27am Power of Hvac Tech No December 27 12:27am Advance Directive Response Recorded Date/ Time Name of Medical Power of Hvac Tech . August 07, 2023 9:45pm Advance Directives Yes December 02 7:47am Living Will No August 13 023 11:05am Power of Hvac Tech No August 13, 2023 11:05am Name of Medical Power of Hvac Tech Ursula Donaldson July 18, 2023 11:35pm Advance Directive Response Recorded Date/ Time Do you have a Healthcare Power of Hvac Tech? No January 07, 2025 3:00pm Advance Directives Yes December 02 8:47am Advance Directive Response Recorded Date/ Time Do you have a Healthcare Power of Hvac Tech? No January 15, 2025 2:24pm Do you have a Healthcare Power of Hvac Tech? No January 07, 2025 3:00pm Advance Directives Yes December 02 8:47am Advance Directive Response Recorded Date/ Time Do you have a Healthcare Power of Hvac Tech? No January 15, 2025 2:24pm Do you have a Healthcare Power of Hvac Tech? No January 20, 2025 4:39am Do you have a Healthcare Power of Hvac Tech? No January 07, 2025 3:00pm Advance Directives Yes December 02 8:47am Advance Directive Response Recorded Date/ Time Do you have a Healthcare Power of Hvac Tech? No January 15, 2025 2:24pm Do you have a Healthcare Power of Hvac Tech? No January 20, 2025 4:39am Do you have a Healthcare Power of Hvac Tech? No January 07, 2025 3:00pm Do you have a Healthcare Power of Hvac Tech? No January 26, 2025 3:01am Advance Directives Yes December 02 8:47am Advance Directive Response Recorded Date/ Time Do you have a Healthcare Power of Hvac Tech? No January 15, 2025 2:24pm Do you have a Healthcare Power of Hvac Tech? No January 20, 2025 4:39am Do you have a Healthcare Power of Hvac Tech? Yes February 04, 2025 6:32am Name of Medical Power of Hvac Tech February 04, 2025 6:32am Do you have a Healthcare Power of Hvac Tech? No January 07, 2025 3:00pm Do you have a Healthcare Power of Hvac Tech? No January 26, 2025 3:01am Advance Directives Yes December 02 8:47am Advance Directive Response Recorded Date/ Time Do you have a Healthcare Power of Hvac Tech? No January 15, 2025 2:24pm Do you have a Healthcare Power of Hvac Tech? No January 20, 2025 4:39am Do you have a Healthcare Power of Hvac Tech? Yes February 04, 2025 12:35pm Name of Medical Power of Hvac Tech February 04, 2025 6:32am Do you have a Healthcare Power of Hvac Tech? No January 07, 2025 3:00pm Do you have a Healthcare Power of Hvac Tech? No January 26, 2025 3:01am Advance Directives Yes December 02 8:47am Advance Directive Response Recorded Date/ Time Do you have a Healthcare Power of Hvac Tech? No January 15, 2025 2:24pm Do you have a Healthcare Power of Hvac Tech? No January 20, 2025 4:39am Do you have a Healthcare Power of Hvac Tech? Yes February 04, 2025 12:35pm Name of Medical Power of Hvac Tech February 04, 2025 6:32am Do you have a Healthcare Power of Hvac Tech? Yes February 09, 2025 12:01pm Name of Medical Power of Hvac Tech ursula lees jr February 09, 2025 12:01pm Do you have a Healthcare Power of Hvac Tech? No January 07, 2025 3:00pm Do you have a Healthcare Power of Hvac Tech? No January 26, 2025 3:01am Advance Directives Yes December 02 8:47am Advance Directive Response Recorded Date/ Time Do you have a Healthcare Power of Hvac Tech? No January 15, 2025 2:24pm Do you have a Healthcare Power of Hvac Tech? No January 20, 2025 4:39am Do you have a Healthcare Power of Hvac Tech? Yes February 04, 2025 12:35pm Name of Medical Power of Hvac Tech February 04, 2025 6:32am Do you have a Healthcare Power of Hvac Tech? Yes February 09, 2025 4:43pm Name of Medical Power of Hvac Tech ursula lees jr February 09, 2025 4:43pm Do you have a Healthcare Power of Hvac Tech? No January 07, 2025 3:00pm Do you have a Healthcare Power of Hvac Tech? No January 26, 2025 3:01am Advance Directives Yes December 02 8:47am Advance Directive Response Recorded Date/ Time Do you have a Healthcare Power of Hvac Tech? No January 15, 2025 2:24pm Do you have a Healthcare Power of Hvac Tech? No January 20, 2025 4:39am Do you have a Healthcare Power of Hvac Tech? Yes February 04, 2025 12:35pm Name of Medical Power of Hvac Tech February 04, 2025 6:32am Do you have a Healthcare Power of Hvac Tech? Yes February 09, 2025 4:43pm Name of Medical Power of Hvac Tech ursula lees jr February 09, 2025 4:43pm Do you have a Healthcare Power of Hvac Tech? Yes February 15, 2025 8:36am Do you have a Healthcare Power of Hvac Tech? No January 07, 2025 3:00pm Do you have a Healthcare Power of Hvac Tech? No January 26, 2025 3:01am Advance Directives Yes December 02 8:47am Advance Directive Response Recorded Date/ Time Do you have a Healthcare Power of Hvac Tech? No January 15, 2025 2:24pm Do you have a Healthcare Power of Hvac Tech? No January 20, 2025 4:39am Do you have a Healthcare Power of Hvac Tech? Yes February 04, 2025 12:35pm Name of Medical Power of Hvac Tech February 04, 2025 6:32am Do you have a Healthcare Power of Hvac Tech? Yes February 09, 2025 4:43pm Name of Medical Power of Hvac Tech ursula lees jr February 09, 2025 4:43pm Do you have a Healthcare Power of Hvac Tech? Yes February 15, 2025 3:20pm Do you have a Healthcare Power of Hvac Tech? No January 07, 2025 3:00pm Do you have a Healthcare Power of Hvac Tech? No January 26, 2025 3:01am Advance Directives Yes December 02 8:47am Advance Directive Response Recorded Date/ Time Do you have a Healthcare Power of Hvac Tech? No January 15, 2025 2:24pm Do you have a Healthcare Power of Hvac Tech? No January 20, 2025 4:39am Do you have a Healthcare Power of Hvac Tech? Yes February 04, 2025 12:35pm Name of Medical Power of Hvac Tech February 04, 2025 6:32am Do you have a Healthcare Power of Hvac Tech? Yes February 09, 2025 4:43pm Name of Medical Power of Hvac Tech ursula lees jr February 09, 2025 4:43pm Do you have a Healthcare Power of Hvac Tech? Yes February 15, 2025 3:20pm Do you have a Healthcare Power of Hvac Tech? No January 07, 2025 3:00pm Do you have a Healthcare Power of Hvac Tech? No January 26, 2025 3:01am Do you have a Healthcare Power of Hvac Tech? Yes February 18, 2025 8:56pm Advance Directives Yes Tianna 4th, 20 22 8:47am Advance Directive Response Recorded Date/ Time Do you have a Healthcare Power of Hvac Tech? No January 15, 2025 2:24pm Do you have a Healthcare Power of Hvac Tech? No January 20, 2025 4:39am Do you have a Healthcare Power of Hvac Tech? Yes February 04, 2025 12:35pm Name of Medical Power of Hvac Tech February 04, 2025 6:32am Do you have a Healthcare Power of Hvac Tech? Yes February 09, 2025 4:43pm Name of Medical Power of Hvac Tech ursula lees February 09, 2025 4:43pm Do you have a Healthcare Power of Hvac Tech? Yes February 15, 2025 3:20pm Do you have a Healthcare Power of Hvac Tech? No January 07, 2025 3:00pm Do you have a Healthcare Power of Hvac Tech? No January 26, 2025 3:01am Do you have a Healthcare Power of Hvac Tech? Yes February 18, 2025 8:56pm Do you have a Healthcare Power of Hvac Tech? Yes March 04, 2025 6:52pm Advance Directives Yes December 02 8:47am Advance Directive Response Recorded Date/ Time Do you have a Healthcare Power of Hvac Tech? No January 15, 2025 2:24pm Do you have a Healthcare Power of Hvac Tech? No January 20, 2025 4:39am Do you have a Healthcare Power of Hvac Tech? Yes February 04, 2025 12:35pm Name of Medical Power of Hvac Tech February 04, 2025 6:32am Do you have a Healthcare Power of Hvac Tech? Yes February 09, 2025 4:43pm Name of Medical Power of Hvac Tech ursula lees February 09, 2025 4:43pm Do you have a Healthcare Power of Hvac Tech? Yes February 15, 2025 3:20pm Do you have a Healthcare Power of Hvac Tech? No January 07, 2025 3:00pm Do you have a Healthcare Power of Hvac Tech? No January 26, 2025 3:01am Do you have a Healthcare Power of Hvac Tech? Yes February 18, 2025 8:56pm Do you have a Healthcare Power of Hvac Tech? Yes March 04, 2025 6:52pm Do you have a Healthcare Power of Hvac Tech? No March 21, 2025 1:31pm Advance Directives Yes December 02 8:47am Advance Directive Response Recorded Date/ Time Do you have a Healthcare Power of Hvac Tech? No January 15, 2025 2:24pm Do you have a Healthcare Power of Hvac Tech? No January 20, 2025 4:39am Do you have a Healthcare Power of Hvac Tech? Yes February 04, 2025 12:35pm Name of Medical Power of Hvac Tech February 04, 2025 6:32am Do you have a Healthcare Power of Hvac Tech? Yes February 09, 2025 4:43pm Name of Medical Power of Hvac Tech ursula lees jr February 09, 2025 4:43pm Do you have a Healthcare Power of Hvac Tech? Yes February 15, 2025 3:20pm Do you have a Healthcare Power of Hvac Tech? No January 07, 2025 3:00pm Do you have a Healthcare Power of Hvac Tech? No January 26, 2025 3:01am Do you have a Healthcare Power of Hvac Tech? Yes February 18, 2025 8:56pm Do you have a Healthcare Power of Hvac Tech? Yes March 04, 2025 6:52pm Do you have a Healthcare Power of Hvac Tech? Yes March 22, 2025 12:37am Name of Medical Power of Hvac Tech ochoa [email or web address] March 22, 2025 12:37am Advance [...] sob January 26, 2025 3:00a m S/[facility] 01/24 (PCU) January 31, 2025 1:42p [...] sob January 26, 2025 3:00a m S/[facility] 01/24 (PCU) January 31, 2025 1:42p [...] sob January 26, 2025 3:00a m S/[facility] 01/24 (PCU) January 31, 2025 1:42p [...] sob January 26, 2025 3:00a m S/[facility] 01/24 (U) January 31, 2025 1:42p [...] sob January 26, 2025 3:00a m S/[facility] 01/24 (PCU) January 31, 2025 1:42p [...] sob January 26, 2025 3:00a m S/[facility] 01/24 (PCU) January 31, 2025 1:42p [...] sob January 26, 2025 3:00a m S/[facility] 01/24 (PCU) January 31, 2025 1:42p [...] sob January 26, 2025 3:00a m [facility] 01/24 (PCU) January 31, 2025 1:42p [...] sob January 26, 2025 3:00a m S/[facility] 01/24 ([facility]) January 31, 2025 1:42p [...] sob January 26, 2025 3:00a m S/[facility] 01/24 (U) January 31, 2025 1:42p [...] sob January 26, 2025 3:00a m S/[facility] 01/24 (PCU) January 31, 2025 1:42p [...] sob January 26, 2025 3:00a m S/[facility] 01/24 (U) January 31, 2025 1:42p [...] sob January 26, 2025 3:00a m S/[facility] 01/24 ([facility]) January 31, 2025 1:42p [...] section and content) DATE CREATED AUTHOR 02/25/[address] [facility] DATE CREATED AUTHOR AUTHOR'S ORGANIZ ATION 05/08/2022 [facility] DATE CREATED AUTHOR AUTHOR'S ORGANIZ ATION 04/01/2025 [facility] Goals (unrecognized section and content) Goals [...] or prosecute any alcohol or drug abuse patient.[facility] Hospital[facility] the event this information is protected by the Federal Confidentiality of Alcohol and Drug Abuse Patient Records regulations: The Federal rules restrict any use of the information to criminally investigate or prosecute any alcohol or drug abuse patient.[facility] HospitalIn the event this information is protected by the Federal Confidentiality of Alcohol and Drug Abuse Patient Records regulations: The Federal rules restrict any use of the information to criminally investigate or prosecute any alcohol or drug abuse patient.[facility] Hospital[facility] the event this information is protected by the Federal Confidentiality of Alcohol and Drug Abuse Patient Records regulations: The Federal rules restrict any use of the information to criminally investigate or prosecute any alcohol or drug abuse patient.[facility] Hospital[facility] the event this information is protected by the Federal Confidentiality of Alcohol and Drug Abuse Patient Records regulations: The Federal rules restrict any use of the information to criminally investigate or prosecute any alcohol or drug abuse patient.[facility] Care Teams (unrecognized sec tion and [...] Status: Inactive Member Role Status Dates Dr. Rmaone Smiley MD Primary Care Provider Active Start: [...] 2025 End: January 26, 2025 Dr. Jg Brayn , Emergency Provider Active Start: January 26, 2025 End: January 26, 2025 Painter Drum Relationship Specialty Start Date End Date Ramone Smiley MD PCP - General Family Practice 08/16/15 Painter Drum Relationship Specialty Start Date End Date Ramone Smiley MD PCP - General Family Practice 08/16/15 Painter Drum Relationship Specialty Start Date End Date Ramoen Smiley MD PCP - General Family Practice 08/16/15 Painter Drum Relationship Specialty Start Date End Date Ramone Smiley MD PCP - General Family Practice 08/16/15 Painter Drum Relationship Specialty Start Date End Date Ramone [...] Status: Inactive Member Role Status Dates Dr. Ramnoe Smiley MD Primary Care Provider Active Dr. [...] Allison , DO Emergency Provider Active Dr. Hyedi Amaya MD Admit Provider Active Dr. Ramone [...] Ramone Smiley MD Primary Care Provider, Attending [facility] Active Team Status: Active Member Role [...] End: January 31, 2025 Whitney Cao NP, [employer] INTERN-C Attending Provider Active Start: January 31, 2025 [...] Active Member Role Status Dates Dr. Ramone Simley MD Primary Care Provider Active Start: February [...] 2025 End: January 31, 2025 Whitney Cao MARKETING [employer]MER INTERN, [employer]ING [employer] INTERN-C Attending Provider Active Start: January 31, 2025 [...] Active Start: March 07, 2025 Whitney Cao MARKETING SUMMER INTERN, MARK[employer]ING [employer] INTERN-C Attending Provider Active Start: March 07, 2025 Whitney Cao MARKETING SUMMER INTERN, MARK[employer]ING [employer] INTERN-C Referring Provider Active Start: March 07, 2025 [...] 2025 End: March 07, 2025 Whitney Cao MARKETING [employer]MER INTERN, MARK[employer]-C Attending Provider Active Start: March 07, 2025 End: March 07, 2025 Whitney Cao MARKETING SUMMER INTERN, MARK[employer]ING [employer] INTERN-C Referring Provider Active Start: March 07, 2025 End: March 07, 2025 Team Status: Active Member Role/Relationship Status Dates Dr. Ramone Smiley MD Primary Care Provider Active Start: March 07, 2025 Whitney Cao MARKETING SUMMER INTERN, MARKETING [employer] INTERN-C Referring Provider Active Start: March 07, 2025 Whitney Cao MARKETING SUMMER INTERN, MARKETING [employer]MER INTERN-C Other Provider Active Sta rt: March 07, 2025 Dr. Se Good MD Attending Provider Active S tart: March 07, 2025 Team Status: Active Member Role/Relationship Status Dates Dr. Ramone Smiley MD Primary Care Provider Active Start: March 09, 2025 Whitney Cao MARKETING SUMMER INTERN, MARKETING [employer]MER INTERN-C Attending Provider Active Start: March 09, 2025 [...] 2025 End: January 31, 2025 Whitney Cao MARKETING SUMMER INTERN, MARKETING [employer]MER INTERN-C Attending Provider Active Start: January 31, 2025 [...] 09, 2025 End: February 13, 2025 Dr. Lucoi Borden DO Admit Provider Active S tart: [...] Provider Active Start: March 22, 2025 Dr. Abigali Foster MD Admit Provider Active St art: [...] BE BASED ON THE PRIMARY CLINICAL RECORDS. [employer] [facility]. provides no warranty or guarantee of the accuracy or completeness of information in this document.
[2025-04-02 04:49] LABS: Pro- Brain NATRIURETIC PEPTIDE 12002 pg/mL (<=1800)
[2025-04-02 05:00] LABS: D-Dimer Quantitative (DVT/PE) 2.43 FEU/ug/m (0.27-0.49)
[2025-04-02 05:49] LABS: Magnesium 2.2 mg/dL (1.5-2.2)
--- NOTE | 2025-04-02 06:01 | VDLE_ITS ---
Reason For Study Reason For Study: Elevated D-dimer RIGHT LEFT GSV is normal. GSV is normal. CFV is compressible, spontaneous, phasic, competent CFV is compressible, spontaneous, phasic, competent, and demonstrates normal augmentation. and demonstrates normal augmentation. FV is compressible, spontaneous, phasic, competent FV is compressible, spontaneous, phasic, competent and demonstrates normal augmentation. and demonstrates normal augmentation. POP V is compressible, spontaneous, phasic, competent POP V is compressible, spontaneous, phasic, competent and demonstrates normal augmentation. and demonstrates normal augmentation. T/P Trunk is compressible. T/P Trunk is compressible. PTV is compressible. PTV is compressible. RT PerV is compressible. LT PerV is compressible. Procedure This is a venous duplex using B-mode, color flow and spectral Doppler. Exam performed portable in ICU/CCU. A preliminary report was called and/or faxed to [facility]IATRY. VL/Venous Duplex US - Michael Extrem Interpretation Summary Deep veins of the bilateral lower extremities are patent and compressible segme ntally. There is no evidence of bilateral lower extremity deep vein thrombosis. The bilateral great saphenous veins appea r patent and compressible segmentally. Ordering Physician: Sandeep Carlton Referring Physician: Ramone Smiley MD Performed By: Kristal Bowen RVT
--- NOTE | 2025-04-02 06:01 | VDLE_ITS ---
Reason For Study Reason For Study: Elevated D-dimer RIGHT LEFT GSV is normal. GSV is normal. CFV is compressible, spontaneous, phasic, competent CFV is compressible, spontaneous, phasic, competent, and demonstrates normal augmentation. and demonstrates normal augmentation. FV is compressible, spontaneous, phasic, competent FV is compressible, spontaneous, phasic, competent and demonstrates normal augmentation. and demonstrates normal augmentation. POP V is compressible, spontaneous, phasic, competent POP V is compressible, spontaneous, phasic, competent and demonstrates normal augmentation. and demonstrates normal augmentation. T/P Trunk is compressible. T/P Trunk is compressible. PTV is compressible. PTV is compressible. RT PerV is compressible. LT PerV is compressible. Procedure This is a venous duplex using B-mode, color flow and spectral Doppler. Exam performed portable in ICU/CCU. A preliminary report was called and/or faxed to [employer]. VL/Venous Duplex US - Michael Extrem Interpretation Summary Deep veins of the bilateral lower extremities are patent and compressible segme ntally. There is no evidence of bilateral lower extremity deep vein thrombosis. The bilateral great saphenous veins appea r patent and compressible segmentally. Ordering Physician: Sandeep Carlton Referring Physician: Ramone Smiley MD Performed By: Kristal Bowen RVT
--- OUTSIDE RECORDS SUMMARY | 2025-04-02 06:08 | XMS RPT_ITS | CCD ---
Author Organization [facility]ini[facility] Care Team Providers Care Sql Server Dba Developer Name Role Phone Zuleika Heaton Unavailable Unavailable LEE ALAMO Unavailable Unavailable PROVIDER, UNKNOWN Unavailable Unavailable Zuleika Heaton Unavailable Unavailable Dr. Ramone Smiley Primary Care Provider Dr. Ramone Smiley Referring Provider [phone] Michael Carmen Attending Provider [phone] Juan Carlos SUPERVISOR CEREAL, SUPERVISOR CEREAL-C Ara Attending Provider Dr. Angela Moncada Attending Provider Baljit LEARY, Ramone Noe Primary Care Provider [phone] Dr. Ramone Smiley Primary Care Provider Dr. Ramone Smiley Referring Provider DAVY Blackmon Attending Provider Ramone Smiley MD Primary Care Provider [phone] Dr. Ramone Smiley Primary Care Provider [phone] Dr. Ramone Smiley Referring Provider DAVY [...] Provider Dr. Queta Cortez Emergency Provider [phone] Nestor Bartlett Admit Provider Dr. Nestor [...] Irvin RAYMUNDO, Dr. Gregorio Attending Provider Nash SUPERVISOR CEREAL-Marianna, Whitney Attending Provider Leydi LEARY, Dr. Rocha [...] MD Attending Provider Whitney Vasquez Referring Provider Whitney Vasquez Other Provider Florentino LEARY, Dr. Saez Attending Provider Baljit LEARY, Dr. Pack Primary Care Provider Baljit LEARY, Dr. Pack Attending Provider Baljit LEARY, Dr. Pack Referring Provider Silvio LEARY, Dr. Barry Attending Provider RoseyDr. Noé rodriguez DO Emergency Provider [phone] Kristin LEARY, Dr. Abigail Awad Admit Provider Kristin LEARY, Dr. Abigail Awad Attending Provider Silvio LEARY, Dr. Barry Attending Provider Kristin LEARY, Dr. Abigail Awad Other Provider [phone] Smiley, Ramone Primary Care Unavailable Lucio Borden Admitting Unavailable Lucio Borden Consulting Unavailable Lucio Borden Attending Unavailable Nash SUPERVISOR CEREAL, Whitney Attending Unavailable Nash SUPERVISOR CEREAL, Whitney Referring Unavailable Smiley, Ramone Primary Care Unavailable Smiley, Ramone Referring Unavailable Smiley, Ramone Primary Care Unavailable Nash SUPERVISOR CEREAL, Whitney Attending Unavailable Abigail Foster Admitting Unavailable Abigail Foster Consulting Unavailable Melba Hartmann Attending Unavailable Smiley, Ramone Primary Care Unavailable Korjanene, Melba Nalini Consulting Unavailable Abigail Foster Attending Unavailable Lucio Borden Consulting Unavailable Lucio Borden Attending Unavailable Smiley, Ramone Primary Care Unavailable Lucio Borden Admitting Unavailable Sandeep Carlton Consulting Unavailable Sandeep Carlton Admitting Unavailable Smiley, Ramone Primary Care Unavailable Mary Kate, Melba Nalini Attending Unavailable Lucio Borden Consulting Unavailable Mihai Sotoadeyoni Consulting Unavailgeremias Hartmann, Melba Nalini Consulting Unavailable Nestor Bartlett Attending Unavailable Nestor Bartlett Consulting Unavailable Nestor Bartlett Admitting Unavailable Smiley, Ramone Primary Care Unavailable Heydi Amaya Attending Unavailable Heydi Amaya Consulting Unavailable Lucio Borden Attending Unavailable Smiley, Ramone Primary Care Unavailable Smiley, Ramone Primary Care Unavailable Lucio Borden Admitting Unavailable Lucio Borden Attending Unavailable Nestor Bartlett Admitting Unavailable Nestor Bartlett Consulting Unavailable Heydi Amaya Attending Unavailable Smiley, Ramone Primary Care Unavailable Smiley, Ramone Primary Care Unavailable Mihai Sotoadee Attending Unavailabl e Smiley, Ramone Referring Unavailable [...] Smiley, Ramone Primary Care Unavailable Eshenaur PA, Jason Referring Unavailable Eshenaur PA, Ray Attending Unavailable Smiley, Ramone Primary Care Unavailable Smiley, Ramone Primary Care Unavailable Smiley, Ramone Referring Unavailable Smiley, Ramone Attending Unavailable Smiley, Ramone Referring Unavailable Smiley, Ramone Primary Care Unavailable Smiley, Ramone Attending Unavailable Abigail Foster Admitting Unavailable Abigail Foster Consulting Unavailable Melba Hartmann Attending Unavailable Smiley, Ramone Primary Care Unavailable Nash SUPERVISOR CEREAL, Whitney Consulting Unavailable Nash SUPERVISOR CEREAL, Whitney Referring Unavailable Se Good Attending Unavailable Smiley, Ramone Primary Care Unavailable Nash JEAN, Whitney Attending Unavailable Smiley, Ramone Primary Care Unavailable Sandeep Carlton Attending Unavailable Becca Silverman Attending Unavailable Dr. Sandeep Carlton DO Attending Provider Unav ailable Allergies Allergy Classification Reported Allergen(s) Allergy Type Date of Onset Reaction(s) Facility (20 sources) Adhesive Tape; Translations: [ADHESIVE TAPE] allergy to substance 5 NEEDS FOLLOW-UP [facility] Work Phone: Comment on above: CLOTH TAPE (20 sources) amoxicillin; Translations: [amoxicillin] drug allergy 5 yeast infection [facility] Work Phone: (2 sources) cephalexin drug allergy 5 [facility] Work Phone: (2 sources) clopidogrel drug allergy 5 [facility] Work Phone: (20 sources) Cephalexin; Translations: [cephalexin monohydrate] Drug Allergy 2 [facility] (20 sources) clopidogrel; Translations: [clopidogrel bisulfate] Drug Allergy 1 Hives [facility] Work Phone: (2 sources) cloth tap Allergy to substance 2 Other [facility] Work Phone: (5 sources) Cephalexin Drug Allergy 5 [facility] Work Phone: (5 sources) tape [Other] Propensity to adverse reactions 5 [facility] (2 sources) oxyCODONE Drug Allergy 5 [facility] (1 source) oxyCODONE Drug Allergy 5 [facility] Repository Medications Current Medications Medication Drug Class(es) [...] 19, 2018 1:00am October 26, 2018 1:09am [id number] 200 actuat albuter ol 0.09 mg/actuat metered [...] AERS As needed - 90mcg/inh ALBUTEROL SULFATE [id number] Se Good MD Start: 08-29-2015 VENTOLIN HFA 1 08 (90 Base) MCG/ACT AERS As needed - 90mcg/inh ALBUTEROL SULFATE [id number] Se Good MD Start: 12-25-2014 End: 01-12-2018 [...] / ipratropium bromide 0.167 mg/ml inhalation solution (13 sources) Anticholinergic, beta2-Adrenergic Agonist Start: 02-06-2025 ascorbic [...] TABS One tablet by mouth daily ASPIRIN [id number] Kadie Álvarez RN Start: 08-23-2015 take 1 tablet by martin th once daily ASPIRIN 81 MG TABS One tablet by mouth daily ASPIRIN [id number] Kadie Álvarez RN take 1 tablet by [facility] once daily aspirin, enteric coated (ASPIRIN, [...] in each nostril twice daily AZELASTINE HCL [id number] Kadie Álvarez RN Start: 08-23-2015 take 1-2 spray(s) na deepali route twice daily ASTEPRO 0.15 % SOLN 1-2 sprays in each nostril twice daily AZELASTINE HCL [id number] Kadie Álvarez RN take 1-2 spray(s) na [...] MCG/ACT AERO 2 puffs daily BUDESONIDE-FORMOTEROL FUMARATE [id number] Kadie Álvarez RN Start: 08-23-2015 SYMBICORT 160- 4.5 MCG/ACT AERO 2 puffs daily BUDESONIDE-FORMOTEROL FUMARATE [id number] Kadie Álvarez RN take 1 puff(s) by in halation twice daily budesonide-formoterol (SYMBICORT) 160-4.5 mcg/actuation inhaler Indications: Other iron deficiency anemia Inhale 1 Puff as instructed twice daily. 0 Active Comment on above: Inhale 1 Puff as ins tructed twice daily. Ddpiavrvgh-Nieddgtx-Xhristxr ol (20 sources) Corticosteroid, beta2-Adrenergic Agonist Start: 01-07-2025 Start: [...] 12:00am cetirizine hydrochloride 10 mg oral tablet (12 sources) Histamine-1 Receptor Antagonist Start: 02-09-2025 clindamycin [...] 2021 3:27pm diazePAM 2 mg oral tablet (3 sources) Benzodiazepine Start: 03-21-2025 doxycycline hyclate 100 [...] 08-13-2023 take 1 capsule by mo ut at bedtime Gabapentin 100 mg capsule Active [...] 600 mg ext ended release oral tablet (8 sources) Start: 02-17-2025 hydrOXYzine hydrochloride 25 mg oral tablet (12 sources) Antihistamine Start: 02-09-2025 3 ml insulin glargine 100 un t/ml pen injector (20 sources) Insulin Analog Start: 01-07-2025 Start: 01-07-2025 [...] 0.021 mg /actuat metered dose nasal spray (20 sources) Anticholinergic Start: 01-07-2025 Start: 01-07-2025 Ipratropium [...] twice daily. mecobalamin 1 mg chewable tablet (19 sources) Start: 01-15-2025 Menthol / Zinc Oxide (1 source) Start: 01-15-2025 Menthol-Zinc O xide ([place]) 0.44-20.6 % ointment Active 1 NMA TOPICAL 4 TIMES DAILY as needed for skin irritation January 15, 2025 12:00am Multivitamin preparation (20 sources) Start: 12-06-2021 take [...] POWD 3 times daily with water PSYLLIUM [id number] Kadie Álvarez RN Roflumilast (20 sources) Phosphodiesterase [...] mg / valsartan 26 mg oral tablet (19 sources) Angiotensin 2 Receptor Jefe Start: 02-07-2025 [...] EVERY WEEK January 15, 2025 12:00am Vitamin N-Cqhddzfiguxp-Srhm ral (15 sources) Start: 12-02-2019 take 250 mg by mouth once daily Vitamin P-Jwuphpnhkzwo-Jua eral Active 250 MG PO DAILY December 02, 2019 11:46am Start: 12-02-2019 End: 07-18-2023 take 250 mg by mouth once daily Vitamin U-Lyutxelowjfc-Pftixbh Discontinued 250 MG PO DAILY December 02, 2019 12:00am July 19, 2023 12:34am Start: 12-02-2019 End: 07-18-2023 take 250 mg by mouth once daily Vitamin E-Apjntuaqhlsk-Ncofdrg Discontinued 250 MG PO DAILY December 01, 2019 11:00pm July 18, 2023 11:34pm Start: 12-02-2019 take 250 mg by mouth once daily Vitamin P-Eflsdbzpucqs-Qwujhrb Active 25 0 MG PO DAILY December 01, 2019 11:00pm Start: 12-02-2019 take 250 mg by mouth once daily Vitamin J-Pdoyczpzdnpr-Urydacx Active 25 0 MG PO DAILY December [...] One tablet by mouth daily AMLODIPINE BESYLATE [id number] Se Godo MD apixaban 5 mg oral tablet (20 [...] lower legs 1-2 times daily BETAMETHASONE DIPROPIONATE [id number] Kadie Álvarez RN Start: 08-23-2015 BETAMETHASONE DIPROPIONATE 0.05 % LOTN apply to lower legs 1-2 times daily BETAMETHASONE DIPROPIONATE [id number] Kadie Álvarez RN bisacodyl 10 mg rectal suppo sitory (20 sources) Stimulant Laxative Start: 12-30-2023 End: 01-15-2024 Start: 08-23-2015 take 1 tablet by martin once daily as needed BISACODYL EC 5 MG TBEC One tablet by mouth daily as needed BISACODYL [id number] Kadie Álvarez RN calcium carbonate (2 sources) Start: 08-23-2015 take 1 tablet by mouth once daily CALCIUM 600 600 MG TABS One tablet by mouth daily CALCIUM CARBONATE [id number] Kadie Álvarez RN Calcium Carbonate / vitamin [...] 4 MG TABS As needed CHLORPHENIRAMINE MALEATE [id number] Se Good MD cholecalciferol 0.025 mg oral [...] by mouth daily COD LIVER OIL CAPS [id number] Kadie Álvarez RN take 1 capsule by mouth once neftaly ly Cod Liver Oil cap Indications: Other iron deficiency anemia Take 1 capsule by mouth once daily. 0 Active Comment on above: Take 1 capsule by mo [facility] once daily. Cod Liver Oil capsule [...] martin th once daily DILT-XR 180 MG [id number] One tablet by mouth daily DILTIAZEM HCL [id number] Se Good MD Start: 08-29-2015 take 1 tablet by martin th once daily DILT-XR 180 MG [id number] One tablet by mouth daily DILTIAZEM HCL [id number] Se Good MD Comment on above: Take 180 mg by mouth once daily. docusate sodium 50 mg / sennosides, pen[facility] [...] Start: 08-13-2023 take 1 capsule by mo [facility] once daily Fiber Active 1 CAP PO [...] mg / spironolactone 25 mg oral tablet (12 sources) Thiazide Diuretic, Aldosterone Antagonist Start: 02-09-2025 [...] units SQ daily at bedtime INSULIN DETEMIR [id number] Mariana Finley RN Start: 08-23-2015 inject 28 [IU] by avila bcutaneous injection once daily LEVEMIR 100 UNIT/ML SOLN 28 units SQ daily INSULIN DETEMIR [id number] Kadie Álvarez RN Start: 08-23-2015 take 15 [IU] by subc utaneous injection once daily at bedtime LEVEMIR 100 UNIT/ML SOLN 15 units SQ daily at bedtime INSULIN DETEMIR [id number] Mariana Finley RN Start: 08-23-2015 take 28 [IU] by subc utaneous injection once daily LEVEMIR 100 UNIT/ML SOLN 28 units SQ daily INSULIN DETEMIR [id number] Kadie Álvarez RN inject 52 [IU] by [...] 130 mg/dl levoFLOXacin 750 mg oral tablet (18 sources) Quinolone Antimicrobial Start: 01-24-2025 End: 01-31-2025 linaclotide 0.29 mg oral capsule (2 sources) Guanylate Cyclase-C Agonist Start: 08-23-2015 take 1 tablet by mouth once daily LINZESS 290 MCG CAPS One tablet by mouth daily LINACLOTIDE [id number] Kadie Álvarez RN Start: 08-23-2015 take 1 tablet by martin th once daily LINZESS 290 MCG CAPS One tablet by mouth daily LINACLOTIDE [id number] Kadie Álvarez RN lisinopril 40 mg oral [...] sources) Chloride Channel Activator Start: 8 End: 1 Comment on above: Take 24 mcg by [...] One tablet by mouth daily MAGNESIUM CAPS [id number] Kadie Álvarez RN metFORMIN hydrochloride 1000 mg oral tablet (2 sources) Biguanide take 1 tablet by mouth twice daily GLUCOPHAGE 1000 MG TABS One tablet by mouth twice daily METFORMIN HCL [id number] Julita Chau NP metFORMIN hydrochloride 1000 mg / SITagliptin 50 mg oral tablet (4 sources) Biguanide, Dipeptidyl Peptidase 4 Inhibitor Start: 5 End: 5 take 1 tablet by mouth twice daily JANUMET 50-1000 MG TABS One tablet by mouth twice daily SITAGLIPTIN-METFORMI N HCL 61424865686 Se Good MD Start: 08-23-2015 End: 08-29-2015 take 1 tablet by mouth twice daily JANUMET 50-1000 MG TABS One tablet by mouth twice daily SITAGLIPTIN-METFORMIN HCL [id number] Se Good MD Start: 08-23-2015 take 1 tablet by martin twice daily JANUMET 50-1000 MG TABS One tablet by mouth twice daily SITAGLIPTIN-METFORMIN HCL [id number] Kadie Álvarez RN metoprolol tartrate 25 mg or al tablet (20 sources) beta-Adrenergic Jefe Start: 01-22-2016 End: 03-25-2025 take 1 tablet by mouth twice neftaly ly metoprolol succinate ER (TOPROL XL) 25 mg 24 hr tablet Indications: Other iron deficiency anemia Take 25 mg by mouth twice daily. 0 Active Comment on above: Take 25 mg by mouth twice daily. miSOPROStol 0.2 mg oral tablet (20 sources) Prostaglandin E1 Analog Start: 06-28-20 End: 10-18-19 21 MULTIPLE VITAMIN (2 sources) Start: 08-23-20 15 take 1 tablet by mouth once daily MULTIVITAMINS TABS One tablet by mouth daily MULTIPLE VITAMIN Kadie Álvarez RN naproxen 500 mg oral tablet (20 sources) Nonsteroidal Anti-inflammatory Drug Start: 03-09-20 End: 08-14-20 nystatin 100 unt/mg topical ointment (20 sources) Polyene Antifungal Start: 07-30-20 End: 10-18-19 Start: 07-30-2020 End: 10-18-2020 Nystatin 100,000 unit/gram [...] 02, 2019 11:45am August 13, 2023 2:59pm 1/4-1/ capful before each meal Comment on above: [...] three times daily as needed PROMETHAZINE HCL [id number] Kadie Álvarez RN PSYLLIUM HUSK, BULK, MISC [...] One tablet by mouth daily RANITIDINE HCL [id number] Kadie Álvarez RN Comment on above: Take [...] MIST) 0.65 % nasal spray Use 1 Wren in the nose as needed. 0 Active Comment on above: Use 1 Wren in the n ose as needed. sucralfate [...] End: 10-18-2020 Start: 01-24-2020 End: 10-18-2020 Tiotropium [place] (Spiriva With Handihaler) 18 mcg capsule, w/inhalation device Discontinued 1 NMA INHALATION NEEDED as needed for Sob &/Or Wheezing January 24, 2020 12:00am October 18, 2020 9:28am puncture 1 cap using device; one dose = 2 inhalations Start: 01-24-2020 End: 10-18-2020 Tiotropium [place] (Spiriva With Handihaler) 18 mcg capsule, w/inhalation device Discontinued 1 PUFF INHALATION NEEDED January 24, 2020 12:00am October 18, 2020 9:28am puncture 1 cap using device; one dose = 2 inhalations Start: 08-23-2015 SPIRIVA HANDIH ALER 18 MCG CAPS as needed TIOTROPIUM BROMIDE MONOHYDRATE [id number] Kadie Álvarez RN Start: 08-23-2015 SPIRIVA HANDIH ALER 18 MCG CAPS as needed TIOTROPIUM BROMIDE MONOHYDRATE [id number] Kadie Álvarez RN Start: 12-25-2014 End: 01-12-2018 [...] 10:27am triamcinolone acetonide 0.001 mg/mg topical ointment (20 sources) Corticosteroid Start: 01-07-2025 End: 01-15-2025 Vitamin G-Untelimuljzx-Lvnzote 500 MG tablet,chewable (2 sources) Start: 12-02-2019 End: 07-18-2023 Vitamin J-Tuucwxwxvafl-Jiphmhd 500 MG tablet,chewable Discontinued 250 mg PO DAILY December 02, 2019 12:00am July 19, 2023 12:34am Problems Active Problems Problem Classification Problem Date Documented Da te Episodic/Chronic Abdominal pain (5 sources) Abdominal pain; Translations: [Unspecified abdominal pain] 11-13-2006 Episodic Acute and unspecified renal failure (20 sources) Acute renal failure syndrome; Translations: [Acute kidney failure, unspecified] 12-02-2019 Episodic Acute bronchitis (20 sources) Acute exacerbation of chronic bronchitis; Translations: [...] on above: lumpectomy in 2003 Cardiac dysrhythmias (18 sources) Irregular heart beat; Translations: [Cardiac arrhythmia, [...] Coronary arteriosclerosis; Translations: [Atherosclerotic heart disease of [place] coronary artery without angina pectoris] Onset: 5 [...] in Jul 2018....tubular adenoma Other circulatory disease (20 sources) H/O: heart disorder; Translations: [Personal history of other diseases of the circulatory system] 06-07-2024 Episodic Other circulatory disease (12 sources) H/O: heart failure; Translations: [Personal history [...] Chronic Other diseases of veins and lymphatics (20 sources) Difficult venous access; Translations: [Other specified disorders of veins] 01-01-2024 Episodic Other gastrointestinal disorders (5 sources) Malabsorption - iron; Translations: [Intestinal malabsorption, unspecified] Onset: 1 02-06-2021 Chronic Other gastrointestinal disorders (20 sources) H/O: gastrointestinal disease; Translations: [Personal history of other diseases of the digestive system] 01-24-2020 Episodic Other gastrointestinal disorders (20 sources) Acute constipation; Translations: [Constipation, unspecified] 06-07-2024 Episodic Other lower respiratory disease (20 sources) Dyspnea; Translations: [Shortness of breath] Onset: 5 08-23-2015 Episodic Other lower respiratory disease (20 sources) Cough; Translations: [Cough] 01-07-2025 Episodic Other [...] nutritional; endocrine; and metabolic disorders (20 sources) Hypomagnesemia; Translations: [Hypomagnesemia] 12-30-2023 Chronic Other [...] 5 06-09-2005 Chronic Other upper respiratory disease (20 sources) Acute bronchospasm; Translations: [Acute bronchospasm] 06-07-2024 [...] health status] 07-19-2023 Episodic Residual codes; unclassified (6 sources) Finding related to ability to manage personal health care; Translations: [Other specified health status] 03-04-2025 Episodic Respiratory failure; insufficiency; arrest (adult) (1 source) Chronic respiratory failure with hypercapnia; Translations: [Chronic respiratory failure with hypercapnia] Onset: 5 Chronic Respiratory failure; insufficiency; arrest (adult) (20 sources) Rgnka-xp-ooqnqqd respiratory failure; Translations: [Acute respiratory failure with [...] [Urinary tract infection, site not specified] Onset: 07-10-2020 Episodic Past or Other Problems Problem [...] Range Facility Absolute lymphocyte countOrd ered By: Ethan Suarez on 04-02-2025 Lymphocytes Auto (Unsp spec) [#/Vol] 4.43 10*3/uL 0.83-4.51 [facility] Activated partial thrombopla stin time (aPTT) in platelet poor plasma by coagulation aOrdered By: Ethan Suarez on 04-02-2025 aPTT Coag (PPP) [Time] 28.6 s 24.1-36.2 [facility] Anion gap in Serum or Plasma Ordered By: Ethan Suarez on 04-02-2025 Anion gap [Moles/Vol] 13 mmol/L 5-15 [facility] Automated lymphocyte count a s percentage of total leukocytesOrdered By: Ethan Suarez on 04-02-2025 Lymphocytes/100 WBC Auto (Unsp spec) 49.3 % High 19-41 [facility] BUN/creatinine ratioOrdered By: Ethan Suarez on 04-02-2025 Urea nitrogen/Creatinine [Mass ratio] 14.4 mg/mg 10-20 [facility] Basophil percentageOrdered B y: Ethan Suarez on 04-02-2025 Basophils/100 WBC (Bld) 0.6 % 0-[address] [facility] Bilirubin Test strip Ql (U)O rdered By: Ethan Suarez on 04-02-2025 Bilirubin Ql (U) Negative Negative [facility] Bilirubin, totalOrdered By: Ethan Suarez on 04-02-2025 Bilirubin [Mass/Vol] 0.34 mg/dL 0.00-1.30 [facility] CO2 (BldV) [Moles/Vol]Ordere d By: Ethan Suarez on 04-02-2025 CO2 [Moles/Vol] 33 mmol/L 23-33 [facility] Carbon dioxide, total [Moles /volume] in Central venous bloodOrdered By: Ethan Suarez on 04-02-2025 CO2 [Moles/Vol] 23.3 mmol/L 21.0-32.0 [facility] Chloride assayOrdered By: Albaro Suarez on 04-02-2025 Chloride [Moles/Vol] 101 mmol/L 98-108 [facility] Eosinophil percentageOrdered By: Ethan Suarez on 04-02-2025 Eosinophils/100 WBC (Bld) 3.3 % 0-5 [facility] Erythrocyte distribution wid th ratioOrdered By: Ethan Suarez on 04-02-2025 Erythrocyte distribution width (RBC) [Ratio] 16.0 % High 11.6-14.6 [facility] Erythrocyte distribution wid th standard deviationOrdered By: Ethan Suarez on 04-02-2025 Erythrocyte distribution width (RBC) [Ratio] 51.5 fl High 35.1-43.9 [facility] Glomerular filtration rate ( GFR) estimation/1.73 sq m using serum, plasma, or whole bOrdered By: Ethan Suarez on 04-02-2025 GFR/1.73 sq M.predicted among non-blacks MDRD (S/P/Bld) [Vol rate/Area] 59 mL/min/{1.73_m2} Low >60 [facility] Hematocrit Auto (Bld) [Volum e fraction]Ordered By: Ethan Suarez on 04-02-2025 Hematocrit (Bld) [Volume fraction] 30.4 % Low 37-47 [facility] Hemoglobin measurementOrdere d By: Ethan Suarez on 04-02-2025 Hemoglobin (Bld) [Mass/Vol] 9.5 g/dL Low 12.0-15.0 [facility] Immature granulocytes/100 WB C Auto (Bld)Ordered By: Ethan Suarez on 04-02-2025 Immature granulocytes/100 WBC (Bld) 0.200 % 0.0-0.9 [facility] Influenza virus A and B and SARS-CoV-2 (COVID-19) and Respiratory syncytial virus RNAOrdered By: Ethan Suaerz on 04-02-2025 SARS-CoV-2 (COVID-19) RNA BEBETO+probe Ql (Unsp spec) [facility] Ketones Test strip Ql (U)Ord ered By: Ethan Suarez on 04-02-2025 Ketones Ql (U) Negative Negative [facility] MCV (mean corpuscular volume ) determinationOrdered By: Ethan Suarez on 04-02-2025 MCV (RBC) [Entitic vol] 88.6 fL 81-99 [facility] Mean corpuscular hemoglobin (MCH) determinationOrdered By: Ethan Suarez on 04-02-2025 MCH (RBC) [Entitic mass] 27.7 pg 27.0-32.0 [facility] Monocyte percentageOrdered B y: Ethan Suarez on 04-02-2025 Monocytes/100 WBC (Bld) 11.1 % High 0-10 [facility] Mucus LM Ql (Urine sed)Order ed By: Ethan Suarez on 04-02-2025 Mucus Ql (Urine sed) 0 SEEN /hpf [facility] Natriuretic peptide.B prohor hayley N-Terminal [Mass/volume] in Serum or PlasmaOrdered By: Ethan Suarez on 04-02-2025 Natriuretic peptide.B prohormone N-Terminal [Mass/Vol] 60054 pg/mL High <1800 [facility] Neutrophil percentageOrdered By: Ethan Suarez on 04-02-2025 Neutrophils/100 WBC (Bld) 35.5 % Low 47-70 [facility] Nitrite Test strip Ql (U)Ord ered By: Ethan Suarez on 04-02-2025 Nitrite Ql (U) Negative Negative [facility] No Panel InformationOrdered By: Ethan Suarez on 04-02-2025 BALJIT [facility] Not entered [facility] BiPAP [facility] 18. 9. [facility] 181 U/L High <32 [facility] Platelet countOrdered By: Albaro Suarez on 04-02-2025 Platelets (Bld) [#/Vol] 296 10*3/uL 150-450 [facility] Potassium measurement (mass/ volume)Ordered By: Ethan Suarez on 04-02-2025 Potassium (Unsp spec) [Mass/Vol] 4.3 mmol/L 3.3-5.1 [facility] Protein Test strip Ql (U)Ord ered By: Ethan Suarez on 04-02-2025 Protein Ql (U) 100 mg/dl High Negative [facility] Prothrombin timeOrdered By: Ethan Suarez on 04-02-2025 PT Coag (PPP) [Time] 14.1 s 11.7-14.9 [place] [facility] RBC Auto (Bld) [#/Vol]Ordere d By: Ethan Suarez on 04-02-2025 RBC (Bld) [#/Vol] 3.43 10*6/uL Low 4.2-5.4 [facility] Serum creatinine measurement (mass/volume)Ordered By: Ethan Suarez on 04-02-2025 Creatinine [Mass/Vol] 0.97 mg/dL 0.70-1.20 [facility] Serum globulin measurementOr dered By: Ethan Suarez on 04-02-2025 Globulin (S) [Mass/Vol] 3.5 g/dL 2.2-4.2 [facility] Serum glucose measurement (m ass/volume)Ordered By: Ethan Suarez on 04-02-2025 Glucose [Mass/Vol] 186 mg/dL High 70-99 [facility] Serum or plasma alanine kelley otransferase (ALT) measurementOrdered By: Ethan Suarez on 04-02-2025 ALT [Catalytic activity/Vol] 53 U/L High <35 [facility] Serum or plasma albumin melanie urement (mass/volume)Ordered By: Ethan Suarez on 04-02-2025 Albumin [Mass/Vol] 3.5 g/dL 3.4-4.8 [facility] Serum or plasma albumin/glob ulin mass ratioOrdered By: Ethan Suarez on 04-02-2025 Albumin/Globulin [Mass ratio] 1.0 {ratio} 0.9-2.4 [facility] Serum or plasma alkaline lissa sphatase measurementOrdered By: Ethan Suarez on 04-02-2025 ALP [Catalytic activity/Vol] 132 U/L High 35-104 [facility] Serum or plasma calcium melanie urement (mass/volume)Ordered By: Ethan Suarez on 04-02-2025 Calcium [Mass/Vol] 10.3 mg/dL 7.6-11.0 [facility] Serum or plasma urea nitroge n measurement (mass/volume)Ordered By: Ethan Suarez on 04-02-2025 Urea nitrogen [Mass/Vol] 14 mg/dL 4-19 [facility] Sodium levelOrdered By: Ethan Suarez on 04-02-2025 Sodium [Moles/Vol] 138 mmol/L 133-145 [facility] Squamous epithelial cells de tection in urine sediment by light microscopyOrdered By: Ethan Suarez on 04-02-2025 Epithelial cells.squamous LM Ql (Urine sed) 0-5 SEEN /hpf 5-10 [facility] Total proteinOrdered By: Robb Suarez on 04-02-2025 Protein [Mass/Vol] 6.9 g/dL 5.9-8.4 [facility] Urine clarityOrdered By: Robb Suarez on 04-02-2025 Clarity (U) Cloudy Clear [facility] Urine color determinationOrd ered By: Ethan Suarez on 04-02-2025 Color (U) Yellow Yellow [facility] Urine glucose detectionOrder ed By: Ethan Suarez on 04-02-2025 Glucose Ql (U) 1000 mg/dl High Normal [facility] Urine leukocyte esterase det ection by dipstickOrdered By: Ethan Suarez on 04-02-2025 Leukocyte esterase Test strip Ql (U) 500 /ul High Negative [facility] Urine pHOrdered By: Ethan Suarez on 04-02-2025 pH (U) 6.0 [pH] 5.0 - 8.0 [facility] Urine sediment bacteria coun t by microscopy (number/high power field)Ordered By: Ethan Suarez on 04-02-2025 Bacteria LM.HPF (Urine sed) [#/Area] 1 /[HPF] None Seen [facility] Urine sediment yeast count b y microscopy (number/high powered field)Ordered By: Ethan Suarez on 04-02-2025 Yeast LM.HPF (Urine sed) [#/Area] 2 /[HPF] None Seen [facility] Urine specific gravity measu rementOrdered By: Ethan Suarez on 04-02-2025 Specific gravity (U) [Rel density] 1.020 1.002-1.030 [facility] Urine urobilinogen measureme ntOrdered By: Ethan Suarez on 04-02-2025 Urobilinogen Ql (U) Normal mg/dl Normal [facility] Venous blood base excess rubina surementOrdered By: Ethan Suarez on 04-02-2025 Base excess Calc (BldV) [Moles/Vol] 8 mmol/L High -1.0-3.5 [facility] Venous blood bicarbonate rubina surementOrdered By: Ethan Suarez on 04-02-2025 HCO3 (Bld) [Moles/Vol] 32 mmol/L High 22-26 [facility] Venous blood pH measurementO rdered By: Ethan Suarez on 04-02-2025 pH (BldV) 7.46 [pH] High 7.32-7.42 [facility] Venous blood partial pressur e of carbon dioxide measurementOrdered By: Ethan Suarez on 04-02-2025 CO2 (BldV) [Partial pressure] 44.9 mm[Hg] 41-51 [facility] Venous blood partial pressur e of oxygen measurementOrdered By: Ethan Suarez on 04-02-2025 Oxygen (BldV) [Partial pressure] 36 mm[Hg] 25-40 [facility] White blood cell (WBC) count Ordered By: Ethan Suarez on 04-02-2025 WBC (Bld) [#/Vol] 9.0 10*3/uL 4.4-11.0 [facility] White blood cell countOrdere d By: Ethan Suarez on 04-02-2025 White blood cell count 25-50 SEEN /hpf 0-5 [facility] Basic Metabolic Profile (BMP )on 03-30-2025 BUN Normal 4-19 [facility] Comment on above: Result Comment: Canc elled via OM: Order cancelled - Patient discharged Performed By: #### L 100.0100, L500.2500 ####[facility] [address] [facility] [address] BUN/CRE Normal 10-20 [facility] Comment on above: Result Comment: Canc elled via OM: Order cancelled - Patient discharged Performed By: #### L 100.0100, L500.2500 ####[facility] [address] [place], [address] Calcium Normal 7.6-11.0 [facility] Comment on above: Result Comment: Canc elled via OM: Order cancelled - Patient discharged Performed By: #### L 100.0100, L500.2500 ####[facility] [address] [place], [address] CL Normal 98-108 [facility] Comment on above: Result Comment: Canc elled via OM: Order cancelled - Patient discharged Performed By: #### L 100.0100, L500.2500 ####[facility] [address] [place], [address] CO2 Normal 21.0-32.0 [facility] Comment on above: Result Comment: Canc elled via OM: Order cancelled - Patient discharged Performed By: #### L 100.0100, L500.2500 ####[facility] [address] [place], [address] CREAT,SERUM Normal 0.70-1.20 [facility] Comment on above: Result Comment: Canc elled via OM: Order cancelled - Patient discharged Performed By: #### L 100.0100, L500.2500 ####[facility] [address] [place], [address] eGFR Normal >60 [facility] Comment on above: Result Comment: Canc elled via OM: Order cancelled - Patient discharged Performed By: #### L 100.0100, L500.2500 ####[facility] [address] [place], [address] GAP Normal 5-15 [facility] Comment on above: Result Comment: Canc elled via OM: Order cancelled - Patient discharged Performed By: #### L 100.0100, L500.2500 ####[facility] [address] [place], [address] GLU Normal 70-99 [facility] Comment on above: Result Comment: Canc elled via OM: Order cancelled - Patient discharged Performed By: #### L 100.0100, L500.2500 ####[facility] [address] [place], [address] Potassium Normal 3.3-5.1 [facility] Comment on above: Result Comment: Canc elled via OM: Order cancelled - Patient discharged Performed By: #### L 100.0100, L500.2500 ####[facility] [address] [place], [address] Basic Metabolic Profile (BMP) Normal 133-145 [facility] Comment on above: Result Comment: Canc elled via OM: Order cancelled - Patient discharged Performed By: #### L 100.0100, L500.2500 ####[facility] [address] [place], [address] CBC W/Diff, Automatedon 07-3 Absolute Neut Normal 2.0-7.7 [facility] Comment on above: Result Comment: Canc elled via OM: Order cancelled - Patient discharged Performed By: #### L 100.0100, L500.2500 ####[facility] [address] [place], [address] HCT Normal 37-47 [facility] Comment on above: Result Comment: Canc elled via OM: Order cancelled - Patient discharged Performed By: #### L 100.0100, L500.2500 ####[facility] [address] [place], [address] HGB Normal 12.0-15.0 [facility] Comment on above: Result Comment: Canc elled via OM: Order cancelled - Patient discharged Performed By: #### L 100.0100, L500.2500 ####[facility] [address] [place], [address] MCH Normal 27.0-32.0 [facility] Comment on above: Result Comment: Canc elled via OM: Order cancelled - Patient discharged Performed By: #### L 100.0100, L500.2500 ####[facility] [address] [place], [address] MCHC Normal 32-36 [facility] Comment on above: Result Comment: Canc elled via OM: Order cancelled - Patient discharged Performed By: #### L 100.0100, L500.2500 ####[facility] [address] [place], [address] MCV Normal 81-99 [facility] Comment on above: Result Comment: Canc elled via OM: Order cancelled - Patient discharged Performed By: #### L 100.0100, L500.2500 ####[facility] [address] [place], [address] NEUT% Normal 47-70 [facility] Comment on above: Result Comment: Canc elled via OM: Order cancelled - Patient discharged Performed By: #### L 100.0100, L500.2500 ####[facility] [address] [place], [address] PLT Normal 150-450 [facility] Comment on above: Result Comment: Canc elled via OM: Order cancelled - Patient discharged Performed By: #### L 100.0100, L500.2500 ####[facility] [address] [place], [address] RBC Normal 4.2-5.4 [facility] Comment on above: Result Comment: Canc elled via OM: Order cancelled - Patient discharged Performed By: #### L 100.0100, L500.2500 ####[facility] [address] [place], [address] RDW CV Normal 11.6-14.6 [facility] Comment on above: Result Comment: Canc elled via OM: Order cancelled - Patient discharged Performed By: #### L 100.0100, L500.2500 ####[facility] [address] [place], [address] RDW SD Normal 35.1-43.9 [facility] Comment on above: Result Comment: Canc elled via OM: Order cancelled - Patient discharged Performed By: #### L 100.0100, L500.2500 ####[facility] [address] [place], [address] WBC Normal 4.4-11.0 [facility] Comment on above: Result Comment: Canc elled via OM: Order cancelled - Patient discharged Performed By: #### L 100.0100, L500.2500 ####[facility] [address] [place], [address] Basic Metabolic Profile (BMP )on 03-29-2025 BUN Normal 4-19 [facility] Comment on above: Result Comment: Canc elled via OM: Order cancelled - Patient discharged Performed By: #### L 500.2500, L100.0100 ####[facility] [address] [place], [address] BUN/CRE Normal 10-20 [facility] Comment on above: Result Comment: Canc elled via OM: Order cancelled - Patient discharged Performed By: #### L 500.2500, L100.0100 ####[facility] [address] [place], [address] Calcium Normal 7.6-11.0 [facility] Comment on above: Result Comment: Canc elled via OM: Order cancelled - Patient discharged Performed By: #### L 500.2500, L100.0100 ####[facility] [address] [place], [address] CL Normal 98-108 [facility] Comment on above: Result Comment: Canc elled via OM: Order cancelled - Patient discharged Performed By: #### L 500.2500, L100.0100 ####[facility] [address] [place], [address] CO2 Normal 21.0-32.0 [facility] Comment on above: Result Comment: Canc elled via OM: Order cancelled - Patient discharged Performed By: #### L 500.2500, L100.0100 ####[facility] [address] [place], [address] CREAT,SERUM Normal 0.70-1.20 [facility] Comment on above: Result Comment: Canc elled via OM: Order cancelled - Patient discharged Performed By: #### L 500.2500, L100.0100 ####[facility] [address] [place], [address] eGFR Normal >60 [facility] Comment on above: Result Comment: Canc elled via OM: Order cancelled - Patient discharged Performed By: #### L 500.2500, L100.0100 ####[facility] [address] [place], [address] GAP Normal 5-15 [facility] Comment on above: Result Comment: Canc elled via OM: Order cancelled - Patient discharged Performed By: #### L 500.2500, L100.0100 ####[facility] [address] [place], [address] GLU Normal 70-99 [facility] Comment on above: Result Comment: Canc elled via OM: Order cancelled - Patient discharged Performed By: #### L 500.2500, L100.0100 ####[facility] [address] [place], [address] Potassium Normal 3.3-5.1 [facility] Comment on above: Result Comment: Canc elled via OM: Order cancelled - Patient discharged Performed By: #### L 500.2500, L100.0100 ####[facility] [address] [place], [address] Basic Metabolic Profile (BMP) Normal 133-145 [facility] Comment on above: Result Comment: Canc elled via OM: Order cancelled - Patient discharged Performed By: #### L 500.2500, L100.0100 ####[facility] [address] [place], [address] CBC W/Diff, Automatedon 07-3 0-2024 Absolute Neut Normal 2.0-7.7 [facility] Comment on above: Result Comment: Canc elled via OM: Order cancelled - Patient discharged Performed By: #### L 500.2500, L100.0100 ####[facility] [address] [place], [address] HCT Normal 37-47 [facility] Comment on above: Result Comment: Canc elled via OM: Order cancelled - Patient discharged Performed By: #### L 500.2500, L100.0100 ####[facility] [address] [place], [address] HGB Normal 12.0-15.0 [facility] Comment on above: Result Comment: Canc elled via OM: Order cancelled - Patient discharged Performed By: #### L 500.2500, L100.0100 ####[facility] [address] [place], [address] MCH Normal 27.0-32.0 [facility] Comment on above: Result Comment: Canc elled via OM: Order cancelled - Patient discharged Performed By: #### L 500.2500, L100.0100 ####[facility] [address] [place], [address] MCHC Normal 32-36 [facility] Comment on above: Result Comment: Canc elled via OM: Order cancelled - Patient discharged Performed By: #### L 500.2500, L100.0100 ####[facility] [address] [place], [address] MCV Normal 81-99 [facility] Comment on above: Result Comment: Canc elled via OM: Order cancelled - Patient discharged Performed By: #### L 500.2500, L100.0100 ####[facility] [address] [place], [address] NEUT% Normal 47-70 [facility] Comment on above: Result Comment: Canc elled via OM: Order cancelled - Patient discharged Performed By: #### L 500.2500, L100.0100 ####[facility] [address] [place], [address] PLT Normal 150-450 [facility] Comment on above: Result Comment: Canc elled via OM: Order cancelled - Patient discharged Performed By: #### L 500.2500, L100.0100 ####[facility] [address] [place], [address] RBC Normal 4.2-5.4 [facility] Comment on above: Result Comment: Canc elled via OM: Order cancelled - Patient discharged Performed By: #### L 500.2500, L100.0100 ####[facility] [address] [place], [address] RDW CV Normal 11.6-14.6 [facility] Comment on above: Result Comment: Canc elled via OM: Order cancelled - Patient discharged Performed By: #### L 500.2500, L100.0100 ####[facility] [address] [place], [address] RDW SD Normal 35.1-43.9 [facility] Comment on above: Result Comment: Canc elled via OM: Order cancelled - Patient discharged Performed By: #### L 500.2500, L100.0100 ####[facility] [address] [place], [address] WBC Normal 4.4-11.0 [facility] Comment on above: Result Comment: Canc elled via OM: Order cancelled - Patient discharged Performed By: #### L 500.2500, L100.0100 ####[facility] [address] [place], [address] Basic Metabolic Profile (BMP )on 03-28-2025 BUN Normal 4-19 [facility] Comment on above: Result Comment: Canc elled via OM: Order cancelled - Patient discharged Performed By: #### L 100.0100, L500.2500 ####[facility] [address] [place], [address] BUN/CRE Normal 10-20 [facility] Comment on above: Result Comment: Canc elled via OM: Order cancelled - Patient discharged Performed By: #### L 100.0100, L500.2500 ####[facility] [address] [place], [address] Calcium Normal 7.6-11.0 [facility] Comment on above: Result Comment: Canc elled via OM: Order cancelled - Patient discharged Performed By: #### L 100.0100, L500.2500 ####[facility] [address] [place], [address] CL Normal 98-108 [facility] Comment on above: Result Comment: Canc elled via OM: Order cancelled - Patient discharged Performed By: #### L 100.0100, L500.2500 ####[facility] [address] [place], [address] CO2 Normal 21.0-32.0 [facility] Comment on above: Result Comment: Canc elled via OM: Order cancelled - Patient discharged Performed By: #### L 100.0100, L500.2500 ####[facility] [address] [place], [address] CREAT,SERUM Normal 0.70-1.20 [facility] Comment on above: Result Comment: Canc elled via OM: Order cancelled - Patient discharged Performed By: #### L 100.0100, L500.2500 ####[facility] [address] [place], [address] eGFR Normal >60 [facility] Comment on above: Result Comment: Canc elled via OM: Order cancelled - Patient discharged Performed By: #### L 100.0100, L500.2500 ####[facility] [address] [place], [address] GAP Normal 5-15 [facility] Comment on above: Result Comment: Canc elled via OM: Order cancelled - Patient discharged Performed By: #### L 100.0100, L500.2500 ####[facility] [address] [place], [address] GLU Normal 70-99 [facility] Comment on above: Result Comment: Canc elled via OM: Order cancelled - Patient discharged Performed By: #### L 100.0100, L500.2500 ####[facility] [address] [place], [address] Potassium Normal 3.3-5.1 [facility] Comment on above: Result Comment: Canc elled via OM: Order cancelled - Patient discharged Performed By: #### L 100.0100, L500.2500 ####[facility] [address] [place], [address] Basic Metabolic Profile (BMP) Normal 133-145 [facility] Comment on above: Result Comment: Canc elled via OM: Order cancelled - Patient discharged Performed By: #### L 100.0100, L500.2500 ####[facility] [address] [place], [address] CBC W/Diff, Automatedon 07-2 -2024 Absolute Neut Normal 2.0-7.7 [facility] Comment on above: Result Comment: Canc elled via OM: Order cancelled - Patient discharged Performed By: #### L 100.0100, L500.2500 ####[facility] [address] [place], [address] HCT Normal 37-47 [facility] Comment on above: Result Comment: Canc elled via OM: Order cancelled - Patient discharged Performed By: #### L 100.0100, L500.2500 ####[facility] [address] [place], [address] HGB Normal 12.0-15.0 [facility] Comment on above: Result Comment: Canc elled via OM: Order cancelled - Patient discharged Performed By: #### L 100.0100, L500.2500 ####[facility] [address] [place], [address] MCH Normal 27.0-32.0 [facility] Comment on above: Result Comment: Canc elled via OM: Order cancelled - Patient discharged Performed By: #### L 100.0100, L500.2500 ####[facility] [address] [place], [address] MCHC Normal 32-36 [facility] Comment on above: Result Comment: Canc elled via OM: Order cancelled - Patient discharged Performed By: #### L 100.0100, L500.2500 ####[facility] [address] [place], [address] MCV Normal 81-99 [facility] Comment on above: Result Comment: Canc elled via OM: Order cancelled - Patient discharged Performed By: #### L 100.0100, L500.2500 ####[facility] [address] [place], [address] NEUT% Normal 47-70 [facility] Comment on above: Result Comment: Canc elled via OM: Order cancelled - Patient discharged Performed By: #### L 100.0100, L500.2500 ####[facility] [address] [place], [address] PLT Normal 150-450 [facility] Comment on above: Result Comment: Canc elled via OM: Order cancelled - Patient discharged Performed By: #### L 100.0100, L500.2500 ####[facility] [address] [place], [address] RBC Normal 4.2-5.4 [facility] Comment on above: Result Comment: Canc elled via OM: Order cancelled - Patient discharged Performed By: #### L 100.0100, L500.2500 ####[facility] [facility] [address] [place], [address] RDW CV Normal 11.6-14.6 [facility] Comment on above: Result Comment: Canc elled via OM: Order cancelled - Patient discharged Performed By: #### L 100.0100, L500.2500 ####[facility] [address] [place], [address] RDW SD Normal 35.1-43.9 [facility] Comment on above: Result Comment: Canc elled via OM: Order cancelled - Patient discharged Performed By: #### L 100.0100, L500.2500 ####[facility] [address] [place], [address] WBC Normal 4.4-11.0 [facility] Comment on above: Result Comment: Canc elled via OM: Order cancelled - Patient discharged Performed By: #### L 100.0100, L500.2500 ####[facility] [address] [place], [address] Basic Metabolic Profile (BMP )on 03-27-2025 BUN Normal 4-19 [facility] Comment on above: Result Comment: Canc elled via OM: Order cancelled - Patient discharged Performed By: #### L 500.2500, L100.0100 ####[facility] [address] [place], [address] BUN/CRE Normal 10-20 [facility] Comment on above: Result Comment: Canc elled via OM: Order cancelled - Patient discharged Performed By: #### L 500.2500, L100.0100 ####[facility] [address] [place], [address] Calcium Normal 7.6-11.0 [facility] Comment on above: Result Comment: Canc elled via OM: Order cancelled - Patient discharged Performed By: #### L 500.2500, L100.0100 ####[facility] [address] [place], [address] CL Normal 98-108 [facility] Comment on above: Result Comment: Canc elled via OM: Order cancelled - Patient discharged Performed By: #### L 500.2500, L100.0100 ####[facility] [address] [place], [address] CO2 Normal 21.0-32.0 [facility] Comment on above: Result Comment: Canc elled via OM: Order cancelled - Patient discharged Performed By: #### L 500.2500, L100.0100 ####[facility] [address] [place], [address] CREAT,SERUM Normal 0.70-1.20 [facility] Comment on above: Result Comment: Canc elled via OM: Order cancelled - Patient discharged Performed By: #### L 500.2500, L100.0100 ####[facility] [address] [place], [address] eGFR Normal >60 [facility] Comment on above: Result Comment: Canc elled via OM: Order cancelled - Patient discharged Performed By: #### L 500.2500, L100.0100 ####[facility] [address] [place], [address] GAP Normal 5-15 [facility] Comment on above: Result Comment: Canc elled via OM: Order cancelled - Patient discharged Performed By: #### L 500.2500, L100.0100 ####[facility] [address] [place], [address] GLU Normal 70-99 [facility] Comment on above: Result Comment: Canc elled via OM: Order cancelled - Patient discharged Performed By: #### L 500.2500, L100.0100 ####[facility] [address] [place], [address] Potassium Normal 3.3-5.1 [facility] Comment on above: Result Comment: Canc elled via OM: Order cancelled - Patient discharged Performed By: #### L 500.2500, L100.0100 ####[facility] [address] [place], [address] Basic Metabolic Profile (BMP) Normal 133-145 [facility] Comment on above: Result Comment: Canc elled via OM: Order cancelled - Patient discharged Performed By: #### L 500.2500, L100.0100 ####[facility] [address] [place], [address] CBC W/Diff, Automatedon 07-2 Absolute Neut Normal 2.0-7.7 [facility] Comment on above: Result Comment: Canc elled via OM: Order cancelled - Patient discharged Performed By: #### L 500.2500, L100.0100 ####[facility] [address] [place], [address] HCT Normal 37-47 [facility] Comment on above: Result Comment: Canc elled via OM: Order cancelled - Patient discharged Performed By: #### L 500.2500, L100.0100 ####[facility] [address] [place], [address] HGB Normal 12.0-15.0 [facility] Comment on above: Result Comment: Canc elled via OM: Order cancelled - Patient discharged Performed By: #### L 500.2500, L100.0100 ####[facility] [address] [place], [address] MCH Normal 27.0-32.0 [facility] Comment on above: Result Comment: Canc elled via OM: Order cancelled - Patient discharged Performed By: #### L 500.2500, L100.0100 ####[facility] [address] [place], [address] MCHC Normal 32-36 [facility] Comment on above: Result Comment: Canc elled via OM: Order cancelled - Patient discharged Performed By: #### L 500.2500, L100.0100 ####[facility] [address] [place], [address] MCV Normal 81-99 [facility] Comment on above: Result Comment: Canc elled via OM: Order cancelled - Patient discharged Performed By: #### L 500.2500, L100.0100 ####[facility] [address] [place], [address] NEUT% Normal 47-70 [facility] Comment on above: Result Comment: Canc elled via OM: Order cancelled - Patient discharged Performed By: #### L 500.2500, L100.0100 ####[facility] [address] [place], [address] PLT Normal 150-450 [facility] Comment on above: Result Comment: Canc elled via OM: Order cancelled - Patient discharged Performed By: #### L 500.2500, L100.0100 ####[facility] [address] [place], [address] RBC Normal 4.2-5.4 [facility] Comment on above: Result Comment: Canc elled via OM: Order cancelled - Patient discharged Performed By: #### L 500.2500, L100.0100 ####[facility] [address] [place], [address] RDW CV Normal 11.6-14.6 [facility] Comment on above: Result Comment: Canc elled via OM: Order cancelled - Patient discharged Performed By: #### L 500.2500, L100.0100 ####[facility] [address] [place], [address] RDW SD Normal 35.1-43.9 [facility] Comment on above: Result Comment: Canc elled via OM: Order cancelled - Patient discharged Performed By: #### L 500.2500, L100.0100 ####[facility] [address] [place], [address] WBC Normal 4.4-11.0 [facility] Comment on above: Result Comment: Canc elled via OM: Order cancelled - Patient discharged Performed By: #### L 500.2500, L100.0100 ####[facility] [address] [place], [address] Basic Metabolic Profile (BMP )on 03-26-2025 BUN Normal 4-19 [facility] Comment on above: Result Comment: Canc elled via OM: Order cancelled - Patient discharged Performed By: #### L 500.2500, L100.0100 ####[facility] [address] [place], [address] BUN/CRE Normal 10-20 [facility] Comment on above: Result Comment: Canc elled via OM: Order cancelled - Patient discharged Performed By: #### L 500.2500, L100.0100 ####[facility] [address] [place], [address] Calcium Normal 7.6-11.0 [facility] Comment on above: Result Comment: Canc elled via OM: Order cancelled - Patient discharged Performed By: #### L 500.2500, L100.0100 ####[facility] [address] [place], [address] CL Normal 98-108 [facility] Comment on above: Result Comment: Canc elled via OM: Order cancelled - Patient discharged Performed By: #### L 500.2500, L100.0100 ####[facility] [address] [place], [address] CO2 Normal 21.0-32.0 [facility] Comment on above: Result Comment: Canc elled via OM: Order cancelled - Patient discharged Performed By: #### L 500.2500, L100.0100 ####[facility] [address] [place], [address] CREAT,SERUM Normal 0.70-1.20 [facility] Comment on above: Result Comment: Canc elled via OM: Order cancelled - Patient discharged Performed By: #### L 500.2500, L100.0100 ####[facility] [address] [place], [address] eGFR Normal >60 [facility] Comment on above: Result Comment: Canc elled via OM: Order cancelled - Patient discharged Performed By: #### L 500.2500, L100.0100 ####[facility] [address] [place], [address] GAP Normal 5-15 [facility] Comment on above: Result Comment: Canc elled via OM: Order cancelled - Patient discharged Performed By: #### L 500.2500, L100.0100 ####[facility] [address] [place], [address] GLU Normal 70-99 [facility] Comment on above: Result Comment: Canc elled via OM: Order cancelled - Patient discharged Performed By: #### L 500.2500, L100.0100 ####[facility] [address] [place], [address] Potassium Normal 3.3-5.1 [facility] Comment on above: Result Comment: Canc elled via OM: Order cancelled - Patient discharged Performed By: #### L 500.2500, L100.0100 ####[facility] [address] [place], [address] Basic Metabolic Profile (BMP) Normal 133-145 [facility] Comment on above: Result Comment: Canc elled via OM: Order cancelled - Patient discharged Performed By: #### L 500.2500, L100.0100 ####[facility] [address] [place], [address] CBC W/Diff, Automatedon 07-2 Absolute Neut Normal 2.0-7.7 [facility] Comment on above: Result Comment: Canc elled via OM: Order cancelled - Patient discharged Performed By: #### L 500.2500, L100.0100 ####[facility] [address] [place], [address] HCT Normal 37-47 [facility] Comment on above: Result Comment: Canc elled via OM: Order cancelled - Patient discharged Performed By: #### L 500.2500, L100.0100 ####[facility] [address] [place], [address] HGB Normal 12.0-15.0 [facility] Comment on above: Result Comment: Canc elled via OM: Order cancelled - Patient discharged Performed By: #### L 500.2500, L100.0100 ####[facility] [address] [place], [address] MCH Normal 27.0-32.0 [facility] Comment on above: Result Comment: Canc elled via OM: Order cancelled - Patient discharged Performed By: #### L 500.2500, L100.0100 ####[facility] [address] [place], [address] MCHC Normal 32-36 [facility] Comment on above: Result Comment: Canc elled via OM: Order cancelled - Patient discharged Performed By: #### L 500.2500, L100.0100 ####[facility] [address] [place], [address] MCV Normal 81-99 [facility] Comment on above: Result Comment: Canc elled via OM: Order cancelled - Patient discharged Performed By: #### L 500.2500, L100.0100 ####[facility] [address] [place], [address] NEUT% Normal 47-70 [facility] Comment on above: Result Comment: Canc elled via OM: Order cancelled - Patient discharged Performed By: #### L 500.2500, L100.0100 ####[facility] [address] [place], [address] PLT Normal 150-450 [facility] Comment on above: Result Comment: Canc elled via OM: Order cancelled - Patient discharged Performed By: #### L 500.2500, L100.0100 ####[facility] [address] [place], [address] RBC Normal 4.2-5.4 [facility] Comment on above: Result Comment: Canc elled via OM: Order cancelled - Patient discharged Performed By: #### L 500.2500, L100.0100 ####[facility] [address] [place], [address] RDW CV Normal 11.6-14.6 [facility] Comment on above: Result Comment: Canc elled via OM: Order cancelled - Patient discharged Performed By: #### L 500.2500, L100.0100 ####[facility] [address] [place], [address] RDW SD Normal 35.1-43.9 [facility] Comment on above: Result Comment: Canc elled via OM: Order cancelled - Patient discharged Performed By: #### L 500.2500, L100.0100 ####[facility] [address] [place], [address] WBC Normal 4.4-11.0 [facility] Comment on above: Result Comment: Canc elled via OM: Order cancelled - Patient discharged Performed By: #### L 500.2500, L100.0100 ####[facility] [address] [place], [address] Absolute lymphocyte countOrd ered By: Melba Hartmann on 03-25-2025 Lymphocytes Auto (Unsp spec) [#/Vol] 2.04 10*3/uL 0.83-4.51 [facility] Anion gap in Serum or Plasma Ordered By: Melba Mikhailjanene on 03-25-2025 Anion gap [Moles/Vol] 12 mmol/L 5-15 [facility] Automated lymphocyte count a s percentage of total leukocytesOrdered By: Melba Elizondojanene on 03-25-2025 Lymphocytes/100 WBC Auto (Unsp spec) 26.3 % 19-41 [facility] BUN/creatinine ratioOrdered By: Melbanereida Hartmann on 03-25-2025 Urea nitrogen/Creatinine [Mass ratio] 22.1 mg/mg High 10-20 [facility] Basic Metabolic Profile (BMP )on 03-25-2025 BUN/CRE 22.1 RATIO High - [facility] Comment on above: Performed By: #### L 500.2500, L100.0100 ####[facility] [address] [place], [address] Calcium [Mass/Vol] 10.6 mg/dL Normal 7.6-11.0 [facility] Comment on above: Performed By: #### L 500.2500, L100.0100 ####[facility] [address] [place], [address] Chloride [Moles/Vol] 101 mmol/L Normal 98-108 [facility] Comment on above: Performed By: #### L 500.2500, L100.0100 ####[facility] [address] [place], [address] CO2 [Moles/Vol] 26.0 mmol/L Normal 21.0-32.0 [facility] Comment on above: Performed By: #### L 500.2500, L100.0100 ####[facility] [address] [place], [address] Creatinine [Mass/Vol] 1.14 mg/dL Normal 0.70-1.20 [facility] Comment on above: Performed By: #### L 500.2500, L100.0100 ####[facility] [address] [place], [address] ECRCL 38.25 ml/min Low 50-250 [facility] Comment on above: Performed By: #### L 500.2500, L100.0100 ####[facility] [address] [place], [address] GAP 12 Normal 5-15 [facility] Comment on above: Performed By: #### L 500.2500, L100.0100 ####[facility] [address] [place], [address] GFR/1.73 sq M.predicted among non-blacks MDRD (S/P/Bld) [Vol rate/Area] 48 mL/min/{1.73_m2} Low >60 [facility] Comment on above: Result Comment: mL/m in/1.73m2 CKD-EPI Creatinine Equation (2020) Performed By: #### L 500.2500, L100.0100 ####[facility] [address] [place], [address] Glucose [Mass/Vol] 123 mg/dL High 70-99 [facility] Comment on above: Performed By: #### L 500.2500, L100.0100 ####[facility] [address] [place], [address] Potassium [Moles/Vol] 4.8 mmol/L Normal 3.3-5.1 [facility] Comment on above: Performed By: #### L 500.2500, L100.0100 ####[facility] [address] [place], [address] Sodium [Moles/Vol] 139 mmol/L Normal 133-145 [facility] Comment on above: Performed By: #### L 500.2500, L100.0100 ####[facility] [address] [place], [address] Urea nitrogen [Mass/Vol] 25 mg/dL High 4-19 [facility] Comment on above: Performed By: #### L 500.2500, L100.0100 ####[facility] [address] [place], [address] Basophil percentageOrdered B y: Melba Hartmann on 03-25-2025 Basophils/100 WBC (Bld) 0.4 % 0-1 [facility] Bedside Glucoseon 03-25-2025 FINGER[place]ICK GLU 193 mg/dL High 74-106 [facility] Comment on above: Result Comment: KATARINA GEMENT OF PATIENT CARE PER NURSING PROTOCOL Performed By: #### L 501.080 ####[facility] [address] [place], [address] FINGERSTICK GLU 164 mg/dL High 74-106 [facility] Comment on above: Result Comment: KATARINA GEMENT OF PATIENT CARE PER NURSING PROTOCOL Performed By: #### L 501.080 ####[facility] [address] [place], [address] FINGERSTICK GLU 124 mg/dL High -106 [facility] Comment on above: Result Comment: KATARINA GEMENT OF PATIENT CARE PER NURSING PROTOCOL Performed By: #### L 501.080 ####[facility] [address] [place], [address] CBC W/Diff, Automatedon 072 Absolute Lymph 2.04 X10 3/uL Normal 0.83-4.51 [facility] Comment on above: Performed By: #### L 500.2500, L100.0100 ####[facility] [address] [place], [address] Absolute Neut 4.8 X10 3/uL Normal 2.0-7.7 [facility] Comment on above: Performed By: #### L 500.2500, L100.0100 ####[facility] [address] [place], [address] Basophils/100 WBC (Bld) 0.4 % Normal 0-1 [facility] Comment on above: Performed By: #### L 500.2500, L100.0100 ####[facility] [address] [place], [address] Eosinophils/100 WBC (Bld) 0.8 % Normal 0-5 [facility] Comment on above: Performed By: #### L 500.2500, L100.0100 ####[facility] [address] [place], [address] Erythrocyte distribution width (RBC) [Ratio] 16.3 % High 11.6-14.6 [facility] Comment on above: Performed By: #### L 500.2500, L100.0100 ####[facility] [address] [place], [address] Hematocrit (Bld) [Volume fraction] 29.7 % Low 37-47 [facility] Comment on above: Performed By: #### L 500.2500, L100.0100 ####[facility] [address] [place], [address] Hemoglobin (Bld) [Mass/Vol] 9.0 g/dL Low 12.0-15.0 [facility] Comment on above: Performed By: #### L 500.2500, L100.0100 ####[facility] [address] [place], [address] IG% 0.800 Normal 0.0-0.9 [facility] Comment on above: Result Comment: IG% - Immature Granulocytes (promyelocytes, myelocytes andmetamyelocytes) > 1% indicates that a LEFT SHIFT is Present. Performed By: #### L 500.2500, L100.0100 ####[facility] [address] [place], [address] Lymphocytes/100 WBC (Bld) 26.3 % Normal 19-41 [facility] Comment on above: Performed By: #### L 500.2500, L100.0100 ####[facility] [address] [place], [address] MCH (RBC) [Entitic mass] 27.2 pg Normal 27.0-32.0 [facility] Comment on above: Performed By: #### L 500.2500, L100.0100 ####[facility] [address] [place], [address] MCHC (RBC) [Mass/Vol] 30.3 g/dL Low 32-36 [facility] Comment on above: Performed By: #### L 500.2500, L100.0100 ####[facility] [address] [place], [address] MCV (RBC) [Entitic vol] 89.7 fL Normal 81-99 [facility] Comment on above: Performed By: #### L 500.2500, L100.0100 ####[facility] [address] [place], [address] Monocytes/100 WBC (Bld) 10.4 % High 0-10 [facility] Comment on above: Performed By: #### L 500.2500, L100.0100 ####[facility] [address] [place], [address] Neutrophils/100 WBC (Bld) 61.3 % Normal 47-70 [facility] Comment on above: Performed By: #### L 500.2500, L100.0100 ####[facility] [address] [place], [address] Nucleated RBC (Bld) [#/Vol] 0.3 10*3/uL Normal 0-5 [facility] Comment on above: Performed By: #### L 500.2500, L100.0100 ####[facility] [address] [place], [address] Platelet mean volume (Bld) [Entitic vol] 10.8 fL Normal 6.2-12.0 [facility] Comment on above: Performed By: #### L 500.2500, L100.0100 ####[facility] [address] [place], [address] Platelets (Bld) [#/Vol] 251 10*3/uL Normal 150-450 [facility] Comment on above: Performed By: #### L 500.2500, L100.0100 ####[facility] [address] [place], [address] RBC (Bld) [#/Vol] 3.31 10*6/uL Low 4.2-5.4 [facility] Comment on above: Performed By: #### L 500.2500, L100.0100 ####[facility] [address] [place], [address] RDW SD 53.7 fl High 35.1-43.9 [facility] Comment on above: Performed By: #### L 500.2500, L100.0100 ####[facility] [address] [place], [address] WBC (Bld) [#/Vol] 7.8 10*3/uL Normal 4.4-11.0 [facility] Comment on above: Performed By: #### L 500.2500, L100.0100 ####[facility] [address] [place], [address] Carbon dioxide, total [Moles /volume] in Central venous bloodOrdered By: Melba Hartmann on 03-25-2025 CO2 [Moles/Vol] 26.0 mmol/L 21.0-32.0 [facility] Chloride assayOrdered By: Ewelina Hartmann on 03-25-2025 Chloride [Moles/Vol] 101 mmol/L 98-108 [facility] Discharge Instructionon 03-01 Discharge Instruction Normal [facility] Eosinophil percentageOrdered By: Melba Hartmann on 03-25-2025 Eosinophils/100 WBC (Bld) 0.8 % 0-5 [facility] Erythrocyte distribution wid th ratioOrdered By: Melba Hartmann on 03-25-2025 Erythrocyte distribution width (RBC) [Ratio] 16.3 % High 11.6-14.6 [facility] Erythrocyte distribution wid th standard deviationOrdered By: Melba Hartmann on 03-25-2025 Erythrocyte distribution width (RBC) [Ratio] 53.7 fl High 35.1-43.9 [facility] Glomerular filtration rate ( GFR) estimation/1.73 sq m using serum, plasma, or whole bOrdered By: Melba Hartmann on 03-25-2025 GFR/1.73 sq M.predicted among non-blacks MDRD (S/P/Bld) [Vol rate/Area] 48 mL/min/{1.73_m2} Low >60 [facility] deOrdered By: Melba Hartmann 03-25-2025 Glucose [Mass/Vol] 193 mg/dL High 74-106 [facility] Hematocrit Auto (Bld) [Volum e fraction]Ordered By: Melba Hartmann 03-25-2025 Hematocrit (Bld) [Volume fraction] 29.7 % Low 37-47 [facility] Hemoglobin measurementOrdere d By: Melba Hartmann 03-25-2025 Hemoglobin (Bld) [Mass/Vol] 9.0 g/dL Low 12.0-15.0 [facility] Immature granulocytes/100 WB C Auto (Bld)Ordered By: Melba Hartmann 03-25-2025 Immature granulocytes/100 WBC (Bld) 0.800 % 0.0-0.9 [facility] MCV (mean corpuscular volume ) determinationOrdered By: Melba Hartmann 03-25-2025 MCV (RBC) [Entitic vol] 89.7 fL 81-99 [facility] Mean corpuscular hemoglobin (MCH) determinationOrdered By: Melba Hartmann 03-25-2025 MCH (RBC) [Entitic mass] 27.2 pg 27.0-32.0 [facility] Monocyte percentageOrdered B y: Melba Hartmann 03-25-2025 Monocytes/100 WBC (Bld) 10.4 % High 0-10 [facility] Neutrophil percentageOrdered By: Melba Hartmann on 03-25-2025 Neutrophils/100 WBC (Bld) 61.3 % 47-70 [facility] Platelet countOrdered By: Ewelina Hartmann on 03-25-2025 Platelets (Bld) [#/Vol] 251 10*3/uL 150-450 [facility] Potassium measurement (mass/ volume)Ordered By: Melba Hartmann on 03-25-2025 Potassium (Unsp spec) [Mass/Vol] 4.8 mmol/L 3.3-5.1 [facility] RBC Auto (Bld) [#/Vol]Ordere d By: Melba Hartmann on 03-25-2025 RBC (Bld) [#/Vol] 3.31 10*6/uL Low 4.2-5.4 [facility] Serum creatinine measurement (mass/volume)Ordered By: Melba Hartmann on 03-25-2025 Creatinine [Mass/Vol] 1.14 mg/dL 0.70-1.20 [facility] Serum glucose measurement (m ass/volume)Ordered By: Melba Hartmann on 03-25-2025 Glucose [Mass/Vol] 123 mg/dL High 70-99 [facility] Serum or plasma calcium melanie urement (mass/volume)Ordered By: Melba Hartmann on 03-25-2025 Calcium [Mass/Vol] 10.6 mg/dL 7.6-11.0 [facility] Serum or plasma urea nitroge n measurement (mass/volume)Ordered By: Melba Hartmann on 03-25-2025 Urea nitrogen [Mass/Vol] 25 mg/dL High 4-19 [facility] Sodium levelOrdered By: Melba Hartmann on 03-25-2025 Sodium [Moles/Vol] 139 mmol/L 133-145 [facility] White blood cell (WBC) count Ordered By: Melba Hartmann on 03-25-2025 WBC (Bld) [#/Vol] 7.8 10*3/uL 4.4-11.0 [facility] Basic Metabolic Profile (BMP )on 03-24-2025 BUN/CRE 19.7 RATIO Normal 10-20 [facility] Comment on above: Performed By: #### L 100.0100, L500.2500 ####[facility] [address] [place], [address] Calcium [Mass/Vol] 10.5 mg/dL Normal 7.6-11.0 [facility] Comment on above: Performed By: #### L 100.0100, L500.2500 ####[facility] [address] [place], [address] Chloride [Moles/Vol] 97 mmol/L Low 98-108 [facility] Comment on above: Performed By: #### L 100.0100, L500.2500 ####[facility] [address] [place], [address] CO2 [Moles/Vol] 27.0 mmol/L Normal 21.0-32.0 [facility] Comment on above: Performed By: #### L 100.0100, L500.2500 ####[facility] [address] [place], [address] Creatinine [Mass/Vol] 1.21 mg/dL High 0.70-1.20 [facility] Comment on above: Performed By: #### L 100.0100, L500.2500 ####[facility] [address] [place], [address] ECRCL 35.44 ml/min Low 50-250 [facility] Comment on above: Performed By: #### L 100.0100, L500.2500 ####[facility] [address] [place], [address] GAP 11 Normal 5-15 [facility] Comment on above: Performed By: #### L 100.0100, L500.2500 ####[facility] [address] [place], [address] GFR/1.73 sq M.predicted among non-blacks MDRD (S/P/Bld) [Vol rate/Area] 45 mL/min/{1.73_m2} Low >60 [facility] Comment on above: Result Comment: mL/m in/1.73m2 CKD-EPI Creatinine Equation (2020) Performed By: #### L 100.0100, L500.2500 ####[facility] [address] [place], [address] Glucose [Mass/Vol] 165 mg/dL High 70-99 [facility] Comment on above: Performed By: #### L 100.0100, L500.2500 ####[facility] [address] [place], [address] Potassium [Moles/Vol] 4.8 mmol/L Normal 3.3-5.1 [facility] Comment on above: Performed By: #### L 100.0100, L500.2500 ####[facility] [address] [place], [address] Sodium [Moles/Vol] 135 mmol/L Normal 133-145 [facility] Comment on above: Performed By: #### L 100.0100, L500.2500 ####[facility] [address] [place], [address] Urea nitrogen [Mass/Vol] 24 mg/dL High 4-19 [facility] Comment on above: Performed By: #### L 100.0100, L500.2500 ####[facility] [address] [place], [address] Bedside Glucoseon 03-24-2025 FINGERSTICK GLU 294 mg/dL High 74-106 [facility] Comment on above: Result Comment: KATARINA GEMENT OF PATIENT CARE PER NURSING PROTOCOL Performed By: #### L 501.080 ####[facility] [address] [place], [address] FINGERSTICK GLU 311 mg/dL High 74-106 [facility] Comment on above: Result Comment: KATARINA GEMENT OF PATIENT CARE PER NURSING PROTOCOL Performed By: #### L 501.080 ####[facility] [address] [place], [address] FINGERSTICK GLU 132 mg/dL High 74-106 [facility] Comment on above: Result Comment: KATARINA GEMENT OF PATIENT CARE PER NURSING PROTOCOL Performed By: #### L 501.080 ####[facility] [address] [place], [address] FINGERSTICK GLU 156 mg/dL High 74-106 [facility] Comment on above: Result Comment: KATARINA GEMENT OF PATIENT CARE PER NURSING PROTOCOL Performed By: #### L 501.080 ####[facility] [address] [place], [address] CBC W/Diff, Automatedon 07-2 -2024 Absolute Lymph 1.88 X10 3/uL Normal 0.83-4.51 [facility] Comment on above: Performed By: #### L 100.0100, L500.2500 ####[facility] [address] [place], [address] Absolute Neut 6.1 X10 3/uL Normal 2.0-7.7 [facility] Comment on above: Performed By: #### L 100.0100, L500.2500 ####[facility] [address] [place], [address] Basophils/100 WBC (Bld) 0.3 % Normal 0-1 [facility] Comment on above: Performed By: #### L 100.0100, L500.2500 ####[facility] [address] [place], [address] Eosinophils/100 WBC (Bld) 0.8 % Normal 0-5 [facility] Comment on above: Performed By: #### L 100.0100, L500.2500 ####[facility] [address] [place], [address] Erythrocyte distribution width (RBC) [Ratio] 16.4 % High 11.6-14.6 [facility] Comment on above: Performed By: #### L 100.0100, L500.2500 ####[facility] [address] [place], [address] Hematocrit (Bld) [Volume fraction] 29.7 % Low 37-47 [facility] Comment on above: Performed By: #### L 100.0100, L500.2500 ####[facility] [address] [place], [address] Hemoglobin (Bld) [Mass/Vol] 9.1 g/dL Low 12.0-15.0 [facility] Comment on above: Performed By: #### L 100.0100, L500.2500 ####[facility] [address] [place], [address] IG% 0.300 Normal 0.0-0.9 [facility] Comment on above: Result Comment: IG% - Immature Granulocytes (promyelocytes, myelocytes andmetamyelocytes) > 1% indicates that a LEFT SHIFT is Present. Performed By: #### L 100.0100, L500.2500 ####[facility] [address] [place], [address] Lymphocytes/100 WBC (Bld) 21.3 % Normal 19-41 [facility] Comment on above: Performed By: #### L 100.0100, L500.2500 ####[facility] [address] [place], [address] MCH (RBC) [Entitic mass] 26.6 pg Low 27.0-32.0 [facility] Comment on above: Performed By: #### L 100.0100, L500.2500 ####[facility] [address] [place], [address] MCHC (RBC) [Mass/Vol] 30.6 g/dL Low 32-36 [facility] Comment on above: Performed By: #### L 100.0100, L500.2500 ####[facility] [address] [place], [address] MCV (RBC) [Entitic vol] 86.8 fL Normal 81-99 [facility] Comment on above: Performed By: #### L 100.0100, L500.2500 ####[facility] [address] [place], [address] Monocytes/100 WBC (Bld) 8.5 % Normal 0-[address] [facility] Comment on above: Performed By: #### L 100.0100, L500.2500 ####[facility] [address] [place], [address] Neutrophils/100 WBC (Bld) 68.8 % Normal 47-70 [facility] Comment on above: Performed By: #### L 100.0100, L500.2500 ####[facility] [address] [place], [address] Nucleated RBC (Bld) [#/Vol] 0 10*3/uL Normal 0-5 [facility] Comment on above: Performed By: #### L 100.0100, L500.2500 ####[facility] [address] [place], [address] Platelet mean volume (Bld) [Entitic vol] 10.7 fL Normal 6.2-12.0 [facility] Comment on above: Performed By: #### L 100.0100, L500.2500 ####[facility] [address] [place], [address] Platelets (Bld) [#/Vol] 288 10*3/uL Normal 150-450 [facility] Comment on above: Performed By: #### L 100.0100, L500.2500 ####[facility] [address] [place], [address] RBC (Bld) [#/Vol] 3.42 10*6/uL Low 4.2-5.4 [facility] Comment on above: Performed By: #### L 100.0100, L500.2500 ####[facility] [address] [place], [address] RDW SD 52.3 fl High 35.1-43.9 [facility] Comment on above: Performed By: #### L 100.0100, L500.2500 ####[facility] [address] [place], [address] WBC (Bld) [#/Vol] 8.8 10*3/uL Normal 4.4-11.0 [facility] Comment on above: Performed By: #### L 100.0100, L500.2500 ####[facility] [address] [place], [address] Urine Cultureon 03-24-2025 URC Normal [facility] Comment on above: Performed By: #### M 100.2200 ####[facility] [address] [place], [address] Basic Metabolic Profile (BMP )on 03-23-2025 BUN/CRE 15.2 RATIO Normal 10-20 [facility] Comment on above: Performed By: #### L 500.2500, L100.0100 ####[facility] [address] [place], [address] Calcium [Mass/Vol] 10.2 mg/dL Normal 7.6-11.0 [facility] Comment on above: Performed By: #### L 500.2500, L100.0100 ####[facility] [address] [place], [address] Chloride [Moles/Vol] 98 mmol/L Normal 98-108 [facility] Comment on above: Performed By: #### L 500.2500, L100.0100 ####[facility] [address] [place], [address] CO2 [Moles/Vol] 26.0 mmol/L Normal 21.0-32.0 [facility] Comment on above: Performed By: #### L 500.2500, L100.0100 ####[facility] [address] [place], [address] Creatinine [Mass/Vol] 1.25 mg/dL High 0.70-1.20 [facility] Comment on above: Performed By: #### L 500.2500, L100.0100 ####[facility] [address] [place], [address] ECRCL 33.86 ml/min Low 50-250 [facility] Comment on above: Performed By: #### L 500.2500, L100.0100 ####[facility] [address] [place], [address] GAP 8 Normal 5-15 [facility] Comment on above: Performed By: #### L 500.2500, L100.0100 ####[facility] [address] [place], [address] GFR/1.73 sq M.predicted among non-blacks MDRD (S/P/Bld) [Vol rate/Area] 43 mL/min/{1.73_m2} Low >60 [facility] Comment on above: Result Comment: mL/m in/1.73m2 CKD-EPI Creatinine Equation (2020) Performed By: #### L 500.2500, L100.0100 ####[facility] [address] [place], [address] Glucose [Mass/Vol] 198 mg/dL High 70-99 [facility] Comment on above: Performed By: #### L 500.2500, L100.0100 ####[facility] [address] [place], [address] Potassium [Moles/Vol] 5.8 mmol/L High 3.3-5.1 [facility] Comment on above: Performed By: #### L 500.2500, L100.0100 ####[facility] [address] [place], [address] Sodium [Moles/Vol] 132 mmol/L Low 133-145 [facility] Comment on above: Performed By: #### L 500.2500, L100.0100 ####[facility] [address] [place], [address] Urea nitrogen [Mass/Vol] 19 mg/dL Normal 4-19 [facility] Comment on above: Performed By: #### L 500.2500, L100.0100 ####[facility] [address] [place], [address] Bedside Glucoseon 03-23-2025 FINGERSTICK GLU 257 mg/dL High 74-106 [facility] Comment on above: Result Comment: KATARINA GEMENT OF PATIENT CARE PER NURSING PROTOCOL Performed By: #### L 501.080 ####[facility] [address] [place], [address] FINGERSTICK GLU 251 mg/dL High 74-106 [facility] Comment on above: Result Comment: KATARINA GEMENT OF PATIENT CARE PER NURSING PROTOCOL Performed By: #### L 501.080 ####[facility] [address] [place], [address] FINGERSTICK GLU 232 mg/dL High 74-106 [facility] Comment on above: Result Comment: KATARINA GEMENT OF PATIENT CARE PER NURSING PROTOCOL Performed By: #### L 501.080 ####[facility] [address] [place], [address] FINGERSTICK GLU 228 mg/dL High 74-106 [facility] Comment on above: Result Comment: KATARINA GEMENT OF PATIENT CARE PER NURSING PROTOCOL Performed By: #### L 501.080 ####[facility] [address] [place], [address] CBC W/Diff, Automatedon 07-2 Absolute Lymph 1.21 X10 3/uL Normal 0.83-4.51 [facility] Comment on above: Performed By: #### L 500.2500, L100.0100 ####[facility] [address] [place], [address] Absolute Neut 5.6 X10 3/uL Normal 2.0-7.7 [facility] Comment on above: Performed By: #### L 500.2500, L100.0100 ####[facility] [address] [place], [address] Basophils/100 WBC (Bld) 0.1 % Normal 0-1 [facility] Comment on above: Performed By: #### L 500.2500, L100.0100 ####[facility] [address] [place], [address] Eosinophils/100 WBC (Bld) 0.0 % Normal 0-5 [facility] Comment on above: Performed By: #### L 500.2500, L100.0100 ####[facility] [address] [place], [address] Erythrocyte distribution width (RBC) [Ratio] 16.0 % High 11.6-14.6 [facility] Comment on above: Performed By: #### L 500.2500, L100.0100 ####[facility] [address] [place], [address] Hematocrit (Bld) [Volume fraction] 28.0 % Low 37-47 [facility] Comment on above: Performed By: #### L 500.2500, L100.0100 ####[facility] [address] [place], [address] Hemoglobin (Bld) [Mass/Vol] 8.8 g/dL Low 12.0-15.0 [facility] Comment on above: Performed By: #### L 500.2500, L100.0100 ####[facility] [address] [place], [address] IG% 0.500 Normal 0.0-0.9 [facility] Comment on above: Result Comment: IG% - Immature Granulocytes (promyelocytes, myelocytes andmetamyelocytes) > 1% indicates that a LEFT SHIFT is Present. Performed By: #### L 500.2500, L100.0100 ####[facility] [address] [place], [address] Lymphocytes/100 WBC (Bld) 16.5 % Low 19-41 [facility] Comment on above: Performed By: #### L 500.2500, L100.0100 ####[facility] [address] [place], [address] MCH (RBC) [Entitic mass] 27.0 pg Normal 27.0-32.0 [facility] Comment on above: Performed By: #### L 500.2500, L100.0100 ####[facility] [address] [place], [address] MCHC (RBC) [Mass/Vol] 31.4 g/dL Low 32-36 [facility] Comment on above: Performed By: #### L 500.2500, L100.0100 ####[facility] [address] [place], [address] MCV (RBC) [Entitic vol] 85.9 fL Normal 81-[address] [facility] Comment on above: Performed By: #### L 500.2500, L100.0100 ####[facility] [address] [place], [address] Monocytes/100 WBC (Bld) 6.8 % Normal 0-10 [facility] Comment on above: Performed By: #### L 500.2500, L100.0100 ####[facility] [address] [place], [address] Neutrophils/100 WBC (Bld) 76.1 % High 47-70 [facility] Comment on above: Performed By: #### L 500.2500, L100.0100 ####[facility] [address] [place], [address] Nucleated RBC (Bld) [#/Vol] 0 10*3/uL Normal 0-5 [facility] Comment on above: Performed By: #### L 500.2500, L100.0100 ####[facility] [address] [place], [address] Platelet mean volume (Bld) [Entitic vol] 10.7 fL Normal 6.2-12.0 [facility] Comment on above: Performed By: #### L 500.2500, L100.0100 ####[facility] [address] [place], [address] Platelets (Bld) [#/Vol] 274 10*3/uL Normal 150-450 [facility] Comment on above: Performed By: #### L 500.2500, L100.0100 ####[facility] [address] [place], [address] RBC (Bld) [#/Vol] 3.26 10*6/uL Low 4.2-5.4 [facility] Comment on above: Performed By: #### L 500.2500, L100.0100 ####[facility] [address] [place], [address] RDW SD 50.8 fl High 35.1-43.9 [facility] Comment on above: Performed By: #### L 500.2500, L100.0100 ####[facility] [address] [place], [address] WBC (Bld) [#/Vol] 7.4 10*3/uL Normal 4.4-11.0 [facility] Comment on above: Performed By: #### L 500.2500, L100.0100 ####[facility] [address] [place], [address] Potassiumon 03-23-2025 Potassium [Moles/Vol] 5.2 mmol/L High 3.3-5.1 [facility] Comment on above: Performed By: #### L 501.5600 ####[facility] [address] [place], [address] Bedside Glucoseon 03-22-2025 FINGERSTICK GLU 243 mg/dL High [address] [place] [address] Comment on above: Result Comment: KATARINA GEMENT OF PATIENT CARE PER NURSING PROTOCOL Performed By: #### L 501.080 ####[facility] [address] [place], [address] FINGERSTICK GLU 232 mg/dL High [address] [place] [address] Comment on above: Result Comment: KATARINA GEMENT OF PATIENT CARE PER NURSING PROTOCOL Performed By: #### L 501.080 ####[facility] [address] [place], [address] FINGERSTICK GLU 131 mg/dL High [address] [place] [address] Comment on above: Result Comment: KATARINA GEMENT OF PATIENT CARE PER NURSING PROTOCOL Performed By: #### L 501.080 ####[facility] [address] [place], [address] FINGERSTICK GLU 139 mg/dL High [address] [place] [address] Comment on above: Result Comment: KATARINA GEMENT OF PATIENT CARE PER NURSING PROTOCOL Performed By: #### L 501.080 ####[facility] [address] [place], [address] Bilirubin, totalOrdered By: Abigail Foster on 03-22-2025 Bilirubin [Mass/Vol] 0.21 mg/dL 0.00-1.30 [facility] Blood manual differential co mment interpretation (narrative result)Ordered By: Abigail Foster on 03-22-2025 Manual differential comment Daniel (Bld) [Interp] SCANNED [facility] CBC W/Diff, Automatedon 03-01 SMEAR COMMENT SCANNED Normal [facility] Comment on above: Performed By: #### L 100.0100, L500.4050 ####[facility] [address] [place], [address] Comprehensive Metabolic Prof ilon 03-22-2025 Albumin [Mass/Vol] 3.0 g/dL Low 3.4-4.8 [facility] Comment on above: Performed By: #### L 100.0100, L500.4050 ####[facility] [address] [place], [address] Albumin/Globulin [Mass ratio] 1.0 {ratio} Normal 0.9-2.4 [facility] Comment on above: Performed By: #### L 100.0100, L500.4050 ####[facility] [address] [place], [address] ALK PHOS 68 U/L Normal 35-104 [facility] Comment on above: Performed By: #### L 100.0100, L500.4050 ####[facility] [address] [place], [address] ALT [Catalytic activity/Vol] 8 U/L Normal <=34 [facility] Comment on above: Performed By: #### L 100.0100, L500.4050 ####[facility] [address] [place], [address] AST [Catalytic activity/Vol] 19 U/L Normal <=31 [facility] Comment on above: Performed By: #### L 100.0100, L500.4050 ####[facility] [address] [place], [address] Bilirubin [Mass/Vol] 0.21 mg/dL Normal 0.00-1.30 [facility] Comment on above: Performed By: #### L 100.0100, L500.4050 ####[facility] [address] [place], [address] BUN/CRE 18.4 RATIO Normal 10-20 [facility] Comment on above: Performed By: #### L 100.0100, L500.4050 ####[facility] [address] [place], [address] Calcium [Mass/Vol] 10.0 mg/dL Normal 7.6-11.0 [facility] Comment on above: Performed By: #### L 100.0100, L500.4050 ####[facility] [address] [place], [address] Chloride [Moles/Vol] 100 mmol/L Normal 98-108 [facility] Comment on above: Performed By: #### L 100.0100, L500.4050 ####[facility] [address] [place], [address] CO2 [Moles/Vol] 25.4 mmol/L Normal 21.0-32.0 [facility] Comment on above: Performed By: #### L 100.0100, L500.4050 ####[facility] [address] [place], [address] Creatinine [Mass/Vol] 0.93 mg/dL Normal 0.70-1.20 [facility] Comment on above: Performed By: #### L 100.0100, L500.4050 ####[facility] [address] [place], [address] ECRCL 44.58 ml/min Low 50-250 [facility] Comment on above: Performed By: #### L 100.0100, L500.4050 ####[facility] [address] [place], [address] GAP 10 Normal 5-15 [facility] Comment on above: Performed By: #### L 100.0100, L500.4050 ####[facility] [address] [place], [address] GFR/1.73 sq M.predicted among non-blacks MDRD (S/P/Bld) [Vol rate/Area] 62 mL/min/{1.73_m2} Normal >60 [facility] Comment on above: Result Comment: mL/m in/1.73m2 CKD-EPI Creatinine Equation (2020) Performed By: #### L 100.0100, L500.4050 ####[facility] [address] [place], [address] Globulin (S) [Mass/Vol] 3.1 g/dL Normal 2.2-4.[address] [facility] Comment on above: Performed By: #### L 100.0100, L500.4050 ####[facility] [address] [place], [address] Glucose [Mass/Vol] 144 mg/dL High 70-99 [facility] Comment on above: Performed By: #### L 100.0100, L500.4050 ####[facility] [address] [place], [address] Potassium [Moles/Vol] 4.2 mmol/L Normal 3.3-5.1 [facility] Comment on above: Performed By: #### L 100.0100, L500.4050 ####[facility] [address] [place], [address] Sodium [Moles/Vol] 135 mmol/L Normal 133-145 [facility] Comment on above: Performed By: #### L 100.0100, L500.4050 ####[facility] [address] [place], [address] T PROT 6.1 g/dL Normal 5.9-8.4 [facility] Comment on above: Performed By: #### L 100.0100, L500.4050 ####[facility] [address] [place], [address] Urea nitrogen [Mass/Vol] 17 mg/dL Normal 4-19 [facility] Comment on above: Performed By: #### L 100.0100, L500.4050 ####[facility] [address] [place], [address] No Panel InformationOrdered By: Abigail Foster on 03-22-2025 19 U/L <32 [facility] Serum globulin measurementOr dered By: Abigail Foster 03-22-2025 Globulin (S) [Mass/Vol] 3.1 g/dL 2.2-4.[address] [facility] Serum or plasma alanine kelley otransferase (ALT) measurementOrdered By: Abigail Kristin 03-22-2025 ALT [Catalytic activity/Vol] 8 U/L <35 [facility] Serum or plasma albumin melanie urement (mass/volume)Ordered By: Abigail Foster 03-22-2025 Albumin [Mass/Vol] 3.0 g/dL Low 3.4-4.8 [facility] Serum or plasma albumin/glob ulin mass ratioOrdered By: Abigail Kristin on 03-22-2025 Albumin/Globulin [Mass ratio] 1.0 {ratio} 0.9-2.4 [facility] Serum or plasma alkaline lissa sphatase measurementOrdered By: Abigail Foster 03-22-2025 ALP [Catalytic activity/Vol] 68 U/L 35-104 [facility] Total proteinOrdered By: Beena Foster on 03-22-2025 Protein [Mass/Vol] 6.1 g/dL 5.9-8.4 [facility] Abdomen/Pelvis W IV Cont ONL Yon 03-21-2025 Abdomen/Pelvis W IV Cont ONLY Normal [facility] Absolute lymphocyte countOrd ered By: Noé Currie on 03-21-2025 Lymphocytes Auto (Unsp spec) [#/Vol] 2.26 10*3/uL 0.83-4.51 [facility] Anion gap in Serum or Plasma Ordered By: Noé Currie on 03-21-2025 Anion gap [Moles/Vol] 13 mmol/L 5- [facility] Automated lymphocyte count a s percentage of total leukocytesOrdered By: Noé Currie on 03-21-2025 Lymphocytes/100 WBC Auto (Unsp spec) 27.1 % - [facility] BUN/creatinine ratioOrdered By: Noé Currie on 03-21-2025 Urea nitrogen/Creatinine [Mass ratio] 18.2 mg/mg - [facility] Basic Metabolic Profile (BMP )on 03-21-2025 BUN/CRE 18.2 RATIO Normal - [facility] Comment on above: Performed By: #### L 500.2500, L100.0100 ####[facility] [address] [place], [address] Calcium [Mass/Vol] 10.5 mg/dL Normal 7.6-11.0 [facility] Comment on above: Performed By: #### L 500.2500, L100.0100 ####[facility] [address] [place], [address] Chloride [Moles/Vol] 98 mmol/L Normal 98-108 [facility] Comment on above: Performed By: #### L 500.2500, L100.0100 ####[facility] [address] [place], [address] CO2 [Moles/Vol] 26.4 mmol/L Normal 21.0-32.0 [facility] Comment on above: Performed By: #### L 500.2500, L100.0100 ####[facility] [address] [place], [address] Creatinine [Mass/Vol] 1.00 mg/dL Normal 0.70-1.20 [facility] Comment on above: Performed By: #### L 500.2500, L100.0100 ####[facility] [address] [place], [address] ECRCL 41.62 ml/min Low 50-250 [facility] Comment on above: Performed By: #### L 500.2500, L100.0100 ####[facility] [address] [place], [address] GAP 13 Normal 5-15 [facility] Comment on above: Performed By: #### L 500.2500, L100.0100 ####[facility] [address] [place], [address] GFR/1.73 sq M.predicted among non-blacks MDRD (S/P/Bld) [Vol rate/Area] 57 mL/min/{1.73_m2} Low >60 [facility] Comment on above: Result Comment: mL/m in/1.73m2 CKD-EPI Creatinine Equation (2020) Performed By: #### L 500.2500, L100.0100 ####[facility] [address] [place], [address] Glucose [Mass/Vol] 128 mg/dL High 70-99 [facility] Comment on above: Performed By: #### L 500.2500, L100.0100 ####[facility] [address] [place], [address] Potassium [Moles/Vol] 4.4 mmol/L Normal 3.3-5.1 [facility] Comment on above: Result Comment: Hemo lysis present, Results??could be affected.?? Performed By: #### L 500.2500, L100.0100 ####[facility] [address] [place], [address] Sodium [Moles/Vol] 137 mmol/L Normal 133-145 [facility] Comment on above: Performed By: #### L 500.2500, L100.0100 ####[facility] [address] [place], [address] Urea nitrogen [Mass/Vol] 18 mg/dL Normal 4-19 [facility] Comment on above: Performed By: #### L 500.2500, L100.0100 ####[facility] [address] [place], [address] Basophil percentageOrdered B y: Noé Rosey on 03-21-2025 Basophils/100 WBC (Bld) 0.7 % 0-1 [facility] Bedside Glucoseon 03-21-2025 FINGERSTICK GLU 114 mg/dL High 74-106 [facility] Comment on above: Result Comment: KATARINA GARY OF PATIENT CARE PER NURSING PROTOCOL Performed By: #### L 501.080 ####[facility] [address] [place], [address] Bilirubin Test strip Ql (U)O rdered By: Ethan Suarez on 03-21-2025 Bilirubin Ql (U) Negative Negative [facility] CBC W/Diff, Automatedon 03-01 Absolute Lymph 2.26 X10 3/uL Normal 0.83-4.51 [facility] Comment on above: Performed By: #### L 500.2500, L100.0100 ####[facility] [address] [place], [address] Absolute Neut 5.2 X10 3/uL Normal 2.0-7.7 [facility] Comment on above: Performed By: #### L 500.2500, L100.0100 ####[facility] [address] [place], [address] Basophils/100 WBC (Bld) 0.7 % Normal 0-1 [facility] Comment on above: Performed By: #### L 500.2500, L100.0100 ####[facility] [address] [place], [address] Eosinophils/100 WBC (Bld) 0.8 % Normal 0-5 [facility] Comment on above: Performed By: #### L 500.2500, L100.0100 ####[facility] [address] [place], [address] Erythrocyte distribution width (RBC) [Ratio] 16.4 % High 11.6-14.6 [facility] Comment on above: Performed By: #### L 500.2500, L100.0100 ####[facility] [address] [place], [address] Hematocrit (Bld) [Volume fraction] 31.3 % Low 37-47 [facility] Comment on above: Performed By: #### L 500.2500, L100.0100 ####[facility] [address] [place], [address] Hemoglobin (Bld) [Mass/Vol] 9.7 g/dL Low 12.0-15.0 [facility] Comment on above: Performed By: #### L 500.2500, L100.0100 ####[facility] [address] [place], [address] IG% 0.500 Normal 0.0-0.9 [facility] Comment on above: Result Comment: IG% - Immature Granulocytes (promyelocytes, myelocytes andmetamyelocytes) > 1% indicates that a LEFT SHIFT is Present. Performed By: #### L 500.2500, L100.0100 ####[facility] [address] [place], [address] Lymphocytes/100 WBC (Bld) 27.1 % Normal 19-41 [facility] Comment on above: Performed By: #### L 500.2500, L100.0100 ####[facility] [address] [place], [address] MCH (RBC) [Entitic mass] 27.0 pg Normal 27.0-32.0 [facility] Comment on above: Performed By: #### L 500.2500, L100.0100 ####[facility] [address] [place], [address] MCHC (RBC) [Mass/Vol] 31.0 g/dL Low 32-36 [facility] Comment on above: Performed By: #### L 500.2500, L100.0100 ####[facility] [address] [place], [address] MCV (RBC) [Entitic vol] 87.2 fL Normal 81-[address] [facility] Comment on above: Performed By: #### L 500.2500, L100.0100 ####[facility] [address] [place], [address] Monocytes/100 WBC (Bld) 8.6 % Normal 0-[address] [facility] Comment on above: Performed By: #### L 500.2500, L100.0100 ####[facility] [address] [place], [address] Neutrophils/100 WBC (Bld) 62.3 % Normal 47-70 [facility] Comment on above: Performed By: #### L 500.2500, L100.0100 ####[facility] [address] [place], [address] Nucleated RBC (Bld) [#/Vol] 0 10*3/uL Normal 0-5 [facility] Comment on above: Performed By: #### L 500.2500, L100.0100 ####[facility] [address] [place], [address] Platelet mean volume (Bld) [Entitic vol] 11.1 fL Normal 6.2-12.0 [facility] Comment on above: Performed By: #### L 500.2500, L100.0100 ####[facility] [address] [place], [address] Platelets (Bld) [#/Vol] 304 10*3/uL Normal 150-450 [facility] Comment on above: Performed By: #### L 500.2500, L100.0100 ####[facility] [address] [place], [address] RBC (Bld) [#/Vol] 3.59 10*6/uL Low 4.2-5.4 [facility] Comment on above: Performed By: #### L 500.2500, L100.0100 ####[facility] [address] [place], [address] RDW SD 52.5 fl High 35.1-43.9 [facility] Comment on above: Performed By: #### L 500.2500, L100.0100 ####[facility] [address] [place], [address] WBC (Bld) [#/Vol] 8.4 10*3/uL Normal 4.4-11.0 [facility] Comment on above: Performed By: #### L 500.2500, L100.0100 ####[facility] [address] [place], [address] Carbon dioxide, total [Moles /volume] in Central venous bloodOrdered By: Noé Currie on 03-21-2025 CO2 [Moles/Vol] 26.4 mmol/L 21.0-32.0 [facility] Chloride assayOrdered By: Natividad Currie on 03-21-2025 Chloride [Moles/Vol] 98 mmol/L 98-108 [facility] Emergency Department Summary on 03-21-2025 Emergency Department Summary Normal [facility] Eosinophil percentageOrdered By: Noé Currie on 03-21-2025 Eosinophils/100 WBC (Bld) 0.8 % 0-5 [facility] Erythrocyte distribution wid th ratioOrdered By: Noé Currie on 03-21-2025 Erythrocyte distribution width (RBC) [Ratio] 16.4 % High 11.6-14.6 [facility] Erythrocyte distribution wid th standard deviationOrdered By: Néo Currie on 03-21-2025 Erythrocyte distribution width (RBC) [Ratio] 52.5 fl High 35.1-43.9 [facility] Glomerular filtration rate ( GFR) estimation/1.73 sq m using serum, plasma, or whole bOrdered By: Noé Currie on 03-21-2025 GFR/1.73 sq M.predicted among non-blacks MDRD (S/P/Bld) [Vol rate/Area] 57 mL/min/{1.73_m2} Low >60 [facility] deOrdered By: Noé Currie on 03-21-2025 Glucose [Mass/Vol] 114 mg/dL High 74-106 [facility] H AND P Exam - Hospitaliston 03-21-2025 H&P Exam - Hospitalist Normal [facility] Hematocrit Auto (Bld) [Volum e fraction]Ordered By: Noé Currie on 03-21-2025 Hematocrit (Bld) [Volume fraction] 31.3 % Low 37-47 [facility] Hemoglobin measurementOrdere d By: Noé Currie on 03-21-2025 Hemoglobin (Bld) [Mass/Vol] 9.7 g/dL Low 12.0-15.0 [facility] Immature granulocytes/100 WB C Auto (Bld)Ordered By: Noé Currie on 03-21-2025 Immature granulocytes/100 WBC (Bld) 0.500 % 0.0-0.9 [facility] Ketones Test strip Ql (U)Ord ered By: Ethan Suarez on 03-21-2025 Ketones Ql (U) Negative Negative [facility] MCV (mean corpuscular volume ) determinationOrdered By: Noé Currie on 03-21-2025 MCV (RBC) [Entitic vol] 87.2 fL 81-99 [facility] Mean corpuscular hemoglobin (MCH) determinationOrdered By: Noé Currie on 03-21-2025 MCH (RBC) [Entitic mass] 27.0 pg 27.0-32.0 [facility] Monocyte percentageOrdered B y: Noé Currie on 03-21-2025 Monocytes/100 WBC (Bld) 8.6 % 0-10 [facility] Mucus LM Ql (Urine sed)Order ed By: Ethan Suarez on 03-21-2025 Mucus Ql (Urine sed) 0 SEEN /hpf [facility] Neutrophil percentageOrdered By: Noé Currie on 03-21-2025 Neutrophils/100 WBC (Bld) 62.3 % 47-70 [facility] Nitrite Test strip Ql (U)Ord ered By: Ethan Suarez on 03-21-2025 Nitrite Ql (U) Negative Negative [facility] Platelet countOrdered By: Natividad Currie on 03-21-2025 Platelets (Bld) [#/Vol] 304 10*3/uL 150-450 [facility] Potassium measurement (mass/ volume)Ordered By: Noé Currie on 03-21-2025 Potassium (Unsp spec) [Mass/Vol] 4.4 mmol/L 3.3-5.1 [facility] Protein Test strip Ql (U)Ord ered By: Ethan Suarez on 03-21-2025 Protein Ql (U) 30 mg/dl High Negative [facility] RBC Auto (Bld) [#/Vol]Ordere d By: Noé Currie on 03-21-2025 RBC (Bld) [#/Vol] 3.59 10*6/uL Low 4.2-5.4 [facility] Serum creatinine measurement (mass/volume)Ordered By: Néo Currie on 03-21-2025 Creatinine [Mass/Vol] 1.00 mg/dL 0.70-1.20 [facility] Serum glucose measurement (m ass/volume)Ordered By: Noé Currie on 03-21-2025 Glucose [Mass/Vol] 128 mg/dL High 70-99 [facility] Serum or plasma calcium melanie urement (mass/volume)Ordered By: Noé Currie on 03-21-2025 Calcium [Mass/Vol] 10.5 mg/dL 7.6-11.0 [facility] Serum or plasma urea nitroge n measurement (mass/volume)Ordered By: Noé Currie on 03-21-2025 Urea nitrogen [Mass/Vol] 18 mg/dL 4-19 [facility] Sodium levelOrdered By: Savage chapman Rosey on 03-21-2025 Sodium [Moles/Vol] 137 mmol/L 133-145 [facility] Spine Lumbar without Contras ton 03-21-2025 Spine Lumbar without Contrast Normal [facility] Squamous epithelial cells de tection in urine sediment by light microscopyOrdered By: Ethan Suarez on 03-21-2025 Epithelial cells.squamous LM Ql (Urine sed) 0-5 SEEN /hpf 5-10 [facility] Urinalysis, Completeon 03-21 BACTERIA 1+ /hpf Normal None Seen [facility] Comment on above: Order Comment: MARSHALL CTOR TO SPECIFY Performed By: #### L 400.0001 ####[facility] [address] [place], [address] RBC 0-5 SEEN Normal 0-5 [facility] Comment on above: Order Comment: MARSHALL CTOR TO SPECIFY Performed By: #### L 400.0001 ####[facility] [address] [place], [address] YEAST 1+ /hpf Normal None Seen [facility] Comment on above: Order Comment: MARSHALL CTOR TO SPECIFY Performed By: #### L 400.0001 ####[facility] [address] [place], [address] EPI,SQUAMOUS 0-5 SEEN Normal 5-10 [facility] Comment on above: Order Comment: MARSHALL CTOR TO SPECIFY Performed By: #### L 400.0001 ####[facility] [address] [place], [address] WBC >100 SEEN Normal 0-5 [facility] Comment on above: Order Comment: MARSHALL CTOR TO SPECIFY Performed By: #### L 400.0001 ####[facility] [address] [place], [address] Mucus Ql (Urine sed) 0 SEEN Normal [facility] Comment on above: Order Comment: COLLE CTOR TO SPECIFY Performed By: #### L 400.0001 ####[facility] [address] [place], [address] Urine clarityOrdered By: Robb Suarez on 03-21-2025 Clarity (U) Sl. Cloudy Clear [facility] Urine color determinationOrd ered By: Ethan Suarez on 03-21-2025 Color (U) Yellow Yellow [facility] Urine cultureOrdered By: Robb Suarez on 03-21-2025 Bacteria identified Cx Nom (U) Staphylococcus epidermidis Abnormal [facility] Urine glucose detectionOrder ed By: Ethan Suarez on 03-21-2025 Glucose Ql (U) 1000 mg/dl High Normal [facility] Urine leukocyte esterase det ection by dipstickOrdered By: Ethan Suarez on 03-21-2025 Leukocyte esterase Test strip Ql (U) 500 /ul High Negative [facility] Urine pHOrdered By: Ethan Suarez on 03-21-2025 pH (U) 7.0 [pH] 5.0 - 8.0 [facility] Urine sediment bacteria coun t by microscopy (number/high power field)Ordered By: Ethan Suarez on 03-21-2025 Bacteria LM.HPF (Urine sed) [#/Area] 1 /[HPF] None Seen [facility] Urine sediment yeast count b y microscopy (number/high powered field)Ordered By: Ethan Suarez on 03-21-2025 Yeast LM.HPF (Urine sed) [#/Area] 1 /[HPF] None Seen [facility] Urine specific gravity measu rementOrdered By: Ethan Suarez on 03-21-2025 Specific gravity (U) [Rel density] 1.010 1.002-1.030 [facility] Urine urobilinogen measureme ntOrdered By: Ethan Suarez on 03-21-2025 Urobilinogen Ql (U) Normal mg/dl Normal [facility] White blood cell (WBC) count Ordered By: Noé Currie on 03-21-2025 WBC (Bld) [#/Vol] 8.4 10*3/uL 4.4-11.0 [facility] White blood cell countOrdere d By: Ethan Suarez on 03-21-2025 White blood cell count >100 SEEN /hpf 0-5 [facility] Culture, Blood (WB)on 2024 CUB Blood cultures x2, from two different sites No growth in 5 days. Normal [facility] Comment on above: Performed By: #### L 500.4050, L300.3900, L300.4310, L100.0100, L503.6005, M200.1000 ####[facility] [address] [place], [place], [address] Cardiovascular stress test r eportOrdered By: Se Good on 03-07-2025 Study report [facility] Work Phone: Stress Reporton 03-07-2025 Stress Report Normal [facility] Urine Cultureon 03-06-2025 URC Normal [facility] Comment on above: Performed By: #### L 400.0001, M100.2200 ####[facility] [address] [place], [place], [address] 12 Lead EKGon 03-04-2025 12 Lead EKG Normal [facility] Abdomen/Pelvis W IV Cont ONL Yon 03-04-2025 Abdomen/Pelvis W IV Cont ONLY Normal [facility] Absolute lymphocyte countOrd ered By: Jeevan Yoder on 03-04-2025 Lymphocytes Auto (Unsp spec) [#/Vol] 1.75 10*3/uL 0.83-4.51 [facility] Activated partial thrombopla stin time (aPTT) in platelet poor plasma by coagulation aOrdered By: Jeevan Yoder on 03-04-2025 aPTT Coag (PPP) [Time] 25.2 s 24.1-36.2 [facility] Amorphous sediment detection in urine sediment by light microscopyOrdered By: Jeevan Yoder on 03-04-2025 Amorphous sediment LM Ql (Urine sed) 3+ [facility] Anion gap in Serum or Plasma Ordered By: Jeevan Yoder on 03-04-2025 Anion gap [Moles/Vol] 11 mmol/L 5-15 [facility] Automated lymphocyte count a s percentage of total leukocytesOrdered By: Jeevan Yoder on 03-04-2025 Lymphocytes/100 WBC Auto (Unsp spec) 24.2 % 19-41 [facility] BUN/creatinine ratioOrdered By: Jeevan Yoder on 03-04-2025 Urea nitrogen/Creatinine [Mass ratio] 18.1 mg/mg 10-20 [facility] Basophil percentageOrdered B y: Jeevan Yoder on 03-04-2025 Basophils/100 WBC (Bld) 0.4 % 0-1 [facility] Bilirubin Test strip Ql (U)O rdered By: Jeevan Yoder on 03-04-2025 Bilirubin Ql (U) Negative Negative [facility] Bilirubin, totalOrdered By: Jeevan Yoder on 03-04-2025 Bilirubin [Mass/Vol] 0.25 mg/dL 0.00-1.30 [facility] Blood cultureOrdered By: Maeve Yoder on 03-04-2025 Bacteria identified Cx Nom (Bld) No growth in 5 days. [facility] Bacteria identified Cx Nom (Bld) No growth in 5 days. [facility] CBC W/Diff, Automatedon Absolute Lymph 1.75 X10 3/uL Normal 0.83-4.51 [facility] Comment on above: Performed By: #### L 500.4050, L300.3900, L300.4310, L100.0100, L503.6005, M200.1000 ####[facility] [address] [place], [address] Absolute Neut 4.8 X10 3/uL Normal 2.0-7.7 [facility] Comment on above: Performed By: #### L 500.4050, L300.3900, L300.4310, L100.0100, L503.6005, M200.1000 ####[facility] [address] [place], [address] Basophils/100 WBC (Bld) 0.4 % Normal 0-1 [facility] Comment on above: Performed By: #### L 500.4050, L300.3900, L300.4310, L100.0100, L503.6005, M200.1000 ####[facility] [address] [place], [address] Eosinophils/100 WBC (Bld) 1.7 % Normal 0-5 [facility] Comment on above: Performed By: #### L 500.4050, L300.3900, L300.4310, L100.0100, L503.6005, M200.1000 ####[facility] [address] [place], [address] Erythrocyte distribution width (RBC) [Ratio] 16.2 % High 11.6-14.6 [facility] Comment on above: Performed By: #### L 500.4050, L300.3900, L300.4310, L100.0100, L503.6005, M200.1000 ####[facility] [address] [place], [address] Hematocrit (Bld) [Volume fraction] 33.5 % Low 37-47 [facility] Comment on above: Performed By: #### L 500.4050, L300.3900, L300.4310, L100.0100, L503.6005, M200.1000 ####[facility] [address] [place], [address] Hemoglobin (Bld) [Mass/Vol] 10.1 g/dL Low 12.0-15.0 [facility] Comment on above: Performed By: #### L 500.4050, L300.3900, L300.4310, L100.0100, L503.6005, M200.1000 ####[facility] [address] [place], [address] IG% 0.700 Normal 0.0-0.9 [facility] Comment on above: Result Comment: IG% - Immature Granulocytes (promyelocytes, myelocytes andmetamyelocytes) > 1% indicates that a LEFT SHIFT is Present. Performed By: #### L 500.4050, L300.3900, L300.4310, L100.0100, L503.6005, M200.1000 ####[facility] [address] [place], [address] Lymphocytes/100 WBC (Bld) 24.2 % Normal 19-41 [facility] Comment on above: Performed By: #### L 500.4050, L300.3900, L300.4310, L100.0100, L503.6005, M200.1000 ####[facility] [address] [place], [address] MCH (RBC) [Entitic mass] 27.2 pg Normal 27.0-32.0 [facility] Comment on above: Performed By: #### L 500.4050, L300.3900, L300.4310, L100.0100, L503.6005, M200.1000 ####[facility] [address] [place], [address] MCHC (RBC) [Mass/Vol] 30.1 g/dL Low 32-36 [facility] Comment on above: Performed By: #### L 500.4050, L300.3900, L300.4310, L100.0100, L503.6005, M200.1000 ####[facility] [address] [place], [address] MCV (RBC) [Entitic vol] 90.3 fL Normal 81-99 [facility] Comment on above: Performed By: #### L 500.4050, L300.3900, L300.4310, L100.0100, L503.6005, M200.1000 ####[facility] [address] [place], [address] Monocytes/100 WBC (Bld) 6.9 % Normal 0-10 [facility] Comment on above: Performed By: #### L 500.4050, L300.3900, L300.4310, L100.0100, L503.6005, M200.1000 ####[facility] [address] [place], [address] Neutrophils/100 WBC (Bld) 66.1 % Normal 47-70 [facility] Comment on above: Performed By: #### L 500.4050, L300.3900, L300.4310, L100.0100, L503.6005, M200.1000 ####[facility] [address] [place], [address] Nucleated RBC (Bld) [#/Vol] 0 10*3/uL Normal 0-5 [facility] Comment on above: Performed By: #### L 500.4050, L300.3900, L300.4310, L100.0100, L503.6005, M200.1000 ####[facility] [address] [place], [address] Platelet mean volume (Bld) [Entitic vol] 10.6 fL Normal 6.2-12.0 [facility] Comment on above: Performed By: #### L 500.4050, L300.3900, L300.4310, L100.0100, L503.6005, M200.1000 ####[facility] [address] [place], [address] Platelets (Bld) [#/Vol] 334 10*3/uL Normal 150-450 [facility] Comment on above: Performed By: #### L 500.4050, L300.3900, L300.4310, L100.0100, L503.6005, M200.1000 ####[facility] [address] [place], [address] RBC (Bld) [#/Vol] 3.71 10*6/uL Low 4.2-5.4 [facility] Comment on above: Performed By: #### L 500.4050, L300.3900, L300.4310, L100.0100, L503.6005, M200.1000 ####[facility] [address] [place], [address] RDW SD 52.9 fl High 35.1-43.9 [facility] Comment on above: Performed By: #### L 500.4050, L300.3900, L300.4310, L100.0100, L503.6005, M200.1000 ####[facility] [address] [place], [address] WBC (Bld) [#/Vol] 7.2 10*3/uL Normal 4.4-11.0 [facility] Comment on above: Performed By: #### L 500.4050, L300.3900, L300.4310, L100.0100, L503.6005, M200.1000 ####[facility] [address] [place], [address] Carbon dioxide, total [Moles /volume] in Central venous bloodOrdered By: Jeevan Yoder on 03-04-2025 CO2 [Moles/Vol] 29.0 mmol/L 21.0-32.0 [facility] Chloride assayOrdered By: Kenny Yoder on 03-04-2025 Chloride [Moles/Vol] 97 mmol/L Low 98-108 [facility] Comprehensive Metabolic Prof ilon 03-04-2025 Albumin [Mass/Vol] 3.3 g/dL Low 3.4-4.8 [facility] Comment on above: Performed By: #### L 500.4050, L300.3900, L300.4310, L100.0100, L503.6005, M200.1000 ####[facility] [address] [place], [address] Albumin/Globulin [Mass ratio] 0.9 {ratio} Normal 0.9-2.4 [facility] Comment on above: Performed By: #### L 500.4050, L300.3900, L300.4310, L100.0100, L503.6005, M200.1000 ####[facility] [address] [place], [address] ALK PHOS 79 U/L Normal 35-104 [facility] Comment on above: Performed By: #### L 500.4050, L300.3900, L300.4310, L100.0100, L503.6005, M200.1000 ####[facility] [address] [place], [address] ALT [Catalytic activity/Vol] 25 U/L Normal <=34 [facility] Comment on above: Performed By: #### L 500.4050, L300.3900, L300.4310, L100.0100, L503.6005, M200.1000 ####[facility] [address] [place], [address] AST [Catalytic activity/Vol] 26 U/L Normal <=31 [facility] Comment on above: Performed By: #### L 500.4050, L300.3900, L300.4310, L100.0100, L503.6005, M200.1000 ####[facility] [address] [place], [address] Bilirubin [Mass/Vol] 0.25 mg/dL Normal 0.00-1.30 [facility] Comment on above: Performed By: #### L 500.4050, L300.3900, L300.4310, L100.0100, L503.6005, M200.1000 ####[facility] [address] [place], [address] BUN/CRE 18.1 RATIO Normal 10-20 [facility] Comment on above: Performed By: #### L 500.4050, L300.3900, L300.4310, L100.0100, L503.6005, M200.1000 ####[facility] [address] [place], [address] Calcium [Mass/Vol] 10.7 mg/dL Normal 7.6-11.0 [facility] Comment on above: Performed By: #### L 500.4050, L300.3900, L300.4310, L100.0100, L503.6005, M200.1000 ####[facility] [address] [place], [address] Chloride [Moles/Vol] 97 mmol/L Low 98-108 [facility] Comment on above: Performed By: #### L 500.4050, L300.3900, L300.4310, L100.0100, L503.6005, M200.1000 ####[facility] [address] [place], [address] CO2 [Moles/Vol] 29.0 mmol/L Normal 21.0-32.0 [facility] Comment on above: Performed By: #### L 500.4050, L300.3900, L300.4310, L100.0100, L503.6005, M200.1000 ####[facility] [address] [place], [address] Creatinine [Mass/Vol] 1.29 mg/dL High 0.70-1.20 [facility] Comment on above: Performed By: #### L 500.4050, L300.3900, L300.4310, L100.0100, L503.6005, M200.1000 ####[facility] [address] [place], [address] ECRCL 32.46 ml/min Low 50-250 [facility] Comment on above: Performed By: #### L 500.4050, L300.3900, L300.4310, L100.0100, L503.6005, M200.1000 ####[facility] [address] [place], [address] GAP 11 Normal 5-15 [facility] Comment on above: Performed By: #### L 500.4050, L300.3900, L300.4310, L100.0100, L503.6005, M200.1000 ####[facility] [address] [place], [address] GFR/1.73 sq M.predicted among non-blacks MDRD (S/P/Bld) [Vol rate/Area] 42 mL/min/{1.73_m2} Low >60 [facility] Comment on above: Result Comment: mL/m in/1.73m2 CKD-EPI Creatinine Equation (2020) Performed By: #### L 500.4050, L300.3900, L300.4310, L100.0100, L503.6005, M200.1000 ####[facility] [address] [place], [address] Globulin (S) [Mass/Vol] 3.6 g/dL Normal 2.2-4.[address] [facility] Comment on above: Performed By: #### L 500.4050, L300.3900, L300.4310, L100.0100, L503.6005, M200.1000 ####[facility] [address] [place], [address] Glucose [Mass/Vol] 116 mg/dL High 70-99 [facility] Comment on above: Performed By: #### L 500.4050, L300.3900, L300.4310, L100.0100, L503.6005, M200.1000 ####[facility] [address] [place], [address] Potassium [Moles/Vol] 5.0 mmol/L Normal 3.3-5.1 [facility] Comment on above: Performed By: #### L 500.4050, L300.3900, L300.4310, L100.0100, L503.6005, M200.1000 ####[facility] [address] [place], [address] Sodium [Moles/Vol] 136 mmol/L Normal 133-145 [facility] Comment on above: Performed By: #### L 500.4050, L300.3900, L300.4310, L100.0100, L503.6005, M200.1000 ####[facility] [address] [place], [place], [id number] T PROT 6.9 g/dL Normal 5.9-8.4 [facility] Comment on above: Performed By: #### L 500.4050, L300.3900, L300.4310, L100.0100, L503.6005, M200.1000 ####[facility] [address] [place], [address] Urea nitrogen [Mass/Vol] 23 mg/dL High 4-19 [facility] Comment on above: Performed By: #### L 500.4050, L300.3900, L300.4310, L100.0100, L503.6005, M200.1000 ####[facility] [address] [place], [address] Emergency Department Summary on 03-04-2025 Emergency Department Summary Normal [facility] Eosinophil percentageOrdered By: Jeevan Yoder on 03-04-2025 Eosinophils/100 WBC (Bld) 1.7 % 0-5 [facility] Erythrocyte distribution wid th ratioOrdered By: Jeevan Yoder on 03-04-2025 Erythrocyte distribution width (RBC) [Ratio] 16.2 % High 11.6-14.6 [facility] Erythrocyte distribution wid th standard deviationOrdered By: Jeevan Yoder on 03-04-2025 Erythrocyte distribution width (RBC) [Ratio] 52.9 fl High 35.1-43.9 [facility] Glomerular filtration rate ( GFR) estimation/1.73 sq m using serum, plasma, or whole bOrdered By: Jeevan Yoder on 03-04-2025 GFR/1.73 sq M.predicted among non-blacks MDRD (S/P/Bld) [Vol rate/Area] 42 mL/min/{1.73_m2} Low >60 [facility] Hematocrit Auto (Bld) [Volum e fraction]Ordered By: Jeevan Yoder on 03-04-2025 Hematocrit (Bld) [Volume fraction] 33.5 % Low 37-47 [facility] Hemoglobin measurementOrdere d By: Jeevan Yoder on 03-04-2025 Hemoglobin (Bld) [Mass/Vol] 10.1 g/dL Low 12.0-15.0 [facility] Immature granulocytes/100 WB C Auto (Bld)Ordered By: Jeevan Yoder on 03-04-2025 Immature granulocytes/100 WBC (Bld) 0.700 % 0.0-0.9 [facility] Ketones Test strip Ql (U)Ord ered By: Jeevan Yoder on 03-04-2025 Ketones Ql (U) 5 mg/dl High Negative [facility] Lactic Acidon 03-04-2025 Lactate [Moles/Vol] 2.0 mmol/L Normal 0.0-2.0 [facility] Comment on above: Order Comment: Y Result Comment: Crit ical Result(s) Called at: 2056 by:??ARCHIE LOVE Results read back by same. Performed By: #### L 500.4050, L300.3900, L300.4310, L100.0100, L503.6005, M200.1000 ####[facility] [address] [place], [address] MCV (mean corpuscular volume ) determinationOrdered By: Jeevan Yoder on 03-04-2025 MCV (RBC) [Entitic vol] 90.3 fL 81-99 [facility] Mean corpuscular hemoglobin (MCH) determinationOrdered By: Jeevan Yoder on 03-04-2025 MCH (RBC) [Entitic mass] 27.2 pg 27.0-32.0 [facility] Monocyte percentageOrdered B y: Jeevan Yoder on 03-04-2025 Monocytes/100 WBC (Bld) 6.9 % 0-10 [facility] Mucus LM Ql (Urine sed)Order ed By: Jeevan Yoder on 03-04-2025 Mucus Ql (Urine sed) 0 SEEN /hpf [facility] Neutrophil percentageOrdered By: Jeevan Yoder on 03-04-2025 Neutrophils/100 WBC (Bld) 66.1 % 47-70 [facility] Nitrite Test strip Ql (U)Ord ered By: Jeevan Yoder on 03-04-2025 Nitrite Ql (U) Negative Negative [facility] No Panel InformationOrdered By: Jeevan Yoder on 03-04-2025 26 U/L <32 [facility] Partial Thromboplast Timeon 03-04-2025 aPTT Coag (Bld) [Time] 25.2 s Normal 24.1-36.2 [facility] Comment on above: Performed By: #### L 500.4050, L300.3900, L300.4310, L100.0100, L503.6005, M200.1000 ####[facility] [address] [place], [place], [id number] Platelet countOrdered By: Kenny Yoder on 03-04-2025 Platelets (Bld) [#/Vol] 334 10*3/uL 150-450 [facility] Potassium measurement (mass/ volume)Ordered By: Jeevan Yoder on 03-04-2025 Potassium (Unsp spec) [Mass/Vol] 5.0 mmol/L 3.3-5.1 [facility] Protein Test strip Ql (U)Ord ered By: Jeevan Yoder on 03-04-2025 Protein Ql (U) 100 mg/dl High Negative [facility] Prothrombin Time w/INRon INR Coag (PPP) [Relative time] 1.0 {INR} Normal [facility] Comment on above: Performed By: #### L 500.4050, L300.3900, L300.4310, L100.0100, L503.6005, M200.1000 ####[facility] [address] [place], [address] PT Coag (PPP) [Time] 13.8 s Normal 11.7-14.9 [facility] Comment on above: Performed By: #### L 500.4050, L300.3900, L300.4310, L100.0100, L503.6005, M200.1000 ####[facility] [address] [place], [address] Prothrombin timeOrdered By: Jeevan Yoder on 03-04-2025 PT Coag (PPP) [Time] 13.8 s 11.7-14.9 [facility] RBC Auto (Bld) [#/Vol]Ordere d By: Jeevan Yoder on 03-04-2025 RBC (Bld) [#/Vol] 3.71 10*6/uL Low 4.2-5.4 [facility] Serum creatinine measurement (mass/volume)Ordered By: Jeevan Yoder on 03-04-2025 Creatinine [Mass/Vol] 1.29 mg/dL High 0.70-1.20 [facility] Serum globulin measurementOr dered By: Jeevan Yoder on 03-04-2025 Globulin (S) [Mass/Vol] 3.6 g/dL 2.2-4.[address] [facility] Serum glucose measurement (m ass/volume)Ordered By: Jeevan Yoder on 03-04-2025 Glucose [Mass/Vol] 116 mg/dL High 70-99 [facility] Serum or plasma alanine kelley otransferase (ALT) measurementOrdered By: Jeevan Yoder on 03-04-2025 ALT [Catalytic activity/Vol] 25 U/L <35 [facility] Serum or plasma albumin melanie urement (mass/volume)Ordered By: Jeevan Yoder on 03-04-2025 Albumin [Mass/Vol] 3.3 g/dL Low 3.4-4.8 [facility] Serum or plasma albumin/glob ulin mass ratioOrdered By: Jeevan Yoder on 03-04-2025 Albumin/Globulin [Mass ratio] 0.9 {ratio} 0.9-2.4 [facility] Serum or plasma alkaline lissa sphatase measurementOrdered By: Jeevan Yoder on 03-04-2025 ALP [Catalytic activity/Vol] 79 U/L 35-104 [facility] Serum or plasma calcium melanie urement (mass/volume)Ordered By: Jeevan Yoder on 03-04-2025 Calcium [Mass/Vol] 10.7 mg/dL 7.6-11.0 [facility] Serum or plasma urea nitroge n measurement (mass/volume)Ordered By: Jeevan Yoder on 03-04-2025 Urea nitrogen [Mass/Vol] 23 mg/dL High 4-19 [facility] Sodium levelOrdered By: Marcelino Yoder on 03-04-2025 Sodium [Moles/Vol] 136 mmol/L 133-145 [facility] Squamous epithelial cells de tection in urine sediment by light microscopyOrdered By: Jeevan Ydoer on 03-04-2025 Epithelial cells.squamous LM Ql (Urine sed) 0-5 SEEN /hpf 5-10 [facility] Total proteinOrdered By: Maeve Yoder on 03-04-2025 Protein [Mass/Vol] 6.9 g/dL 5.9-8.4 [facility] Urinalysis, Completeon 03-04 BACTERIA 4+ /hpf Normal None Seen [facility] Comment on above: Order Comment: MARSHALL CTOR TO SPECIFY Performed By: #### L 400.0001, ####[facility] [address] [place], [place], [id number] EPI,SQUAMOUS 0-5 SEEN Normal 5-10 [facility] Comment on above: Order Comment: MARSHALL CTOR TO SPECIFY Performed By: #### L 400.0001, ####[facility] [address] [place], [place], [address] RBC 0-5 SEEN Normal 0-5 [facility] Comment on above: Order Comment: MARSHALL CTOR TO SPECIFY Performed By: #### L 400.0001, ####[facility] [address] [place], [address] YEAST 2+ /hpf Normal None Seen [facility] Comment on above: Order Comment: MARSHALL CTOR TO SPECIFY Performed By: #### L 400.0001, M100.2200 ####[facility] [address] [place], [address] AMORPHOUS 3+ Normal [facility] Comment on above: Order Comment: MARSHALL CTOR TO SPECIFY Performed By: #### L 400.0001, M100.2200 ####[facility] [address] [place], [address] WBC 25-50 SEEN Normal 0-5 [facility] Comment on above: Order Comment: MARSHALL CTOR TO SPECIFY Performed By: #### L 400.0001, M100.2200 ####[facility] [address] [place], [address] Mucus Ql (Urine sed) 0 SEEN Normal [facility] Comment on above: Order Comment: MARSHALL CTOR TO SPECIFY Performed By: #### L 400.0001, M100.2200 ####[facility] [address] [place], [address] Urine clarityOrdered By: Maeve Yoder on 03-04-2025 Clarity (U) Cloudy Clear [facility] Urine color determinationOrd ered By: Jeevan Yoder on 03-04-2025 Color (U) Straw Yellow [facility] Urine cultureOrdered By: Maeve Yoder on 03-04-2025 Bacteria identified Cx Nom (U) Enterococcus faecalis Abnormal [facility] Urine glucose detectionOrder ed By: Jeevan Yoder on 03-04-2025 Glucose Ql (U) 100 mg/dl High Normal [facility] Urine leukocyte esterase det ection by dipstickOrdered By: Jeevan Yoder on 03-04-2025 Leukocyte esterase Test strip Ql (U) 500 /ul High Negative [facility] Urine pHOrdered By: Jeevan rai on 03-04-2025 pH (U) 7.0 [pH] 5.0 - 8.0 [facility] Urine sediment bacteria coun t by microscopy (number/high power field)Ordered By: Jeevan Yoder on 03-04-2025 Bacteria LM.HPF (Urine sed) [#/Area] 4 /[HPF] None Seen [facility] Urine sediment yeast count b y microscopy (number/high powered field)Ordered By: Jeevan Yoder on 03-04-2025 Yeast LM.HPF (Urine sed) [#/Area] 2 /[HPF] None Seen [facility] Urine specific gravity measu rementOrdered By: Jeevan Yoder on 03-04-2025 Specific gravity (U) [Rel density] 1.010 1.002-1.030 [facility] Urine urobilinogen measureme ntOrdered By: Jeevan Yoder on 03-04-2025 Urobilinogen Ql (U) Normal mg/dl Normal [facility] White blood cell (WBC) count Ordered By: Jeevan Yoder on 03-04-2025 WBC (Bld) [#/Vol] 7.2 10*3/uL 4.4-11.0 [facility] White blood cell countOrdere d By: Jeevan Yoder on 03-04-2025 White blood cell count 25-50 SEEN /hpf 0-5 [facility] Basic Metabolic Profile (BMP )on 02-23-2025 BUN Normal 4-19 [facility] Comment on above: Result Comment: Canc elled via OM: Order cancelled - Patient discharged Performed By: #### L 500.2500, L100.0100 ####[facility] [address] [place], [address] BUN/CRE Normal 10-20 [facility] Comment on above: Result Comment: Canc elled via OM: Order cancelled - Patient discharged Performed By: #### L 500.2500, L100.0100 ####[facility] [address] [place], [address] Calcium Normal 7.6-11.0 [facility] Comment on above: Result Comment: Canc elled via OM: Order cancelled - Patient discharged Performed By: #### L 500.2500, L100.0100 ####[facility] [address] [place], [address] CL Normal 98-108 [facility] Comment on above: Result Comment: Canc elled via OM: Order cancelled - Patient discharged Performed By: #### L 500.2500, L100.0100 ####[facility] [address] [place], [address] CO2 Normal 21.0-32.0 [facility] Comment on above: Result Comment: Canc elled via OM: Order cancelled - Patient discharged Performed By: #### L 500.2500, L100.0100 ####[facility] [address] [place], [address] CREAT,SERUM Normal 0.70-1.20 [facility] Comment on above: Result Comment: Canc elled via OM: Order cancelled - Patient discharged Performed By: #### L 500.2500, L100.0100 ####[facility] [address] [place], [address] eGFR Normal >60 [facility] Comment on above: Result Comment: Canc elled via OM: Order cancelled - Patient discharged Performed By: #### L 500.2500, L100.0100 ####[facility] [address] [place], [address] GAP Normal 5-15 [facility] Comment on above: Result Comment: Canc elled via OM: Order cancelled - Patient discharged Performed By: #### L 500.2500, L100.0100 ####[facility] [address] [place], [address] GLU Normal 70-99 [facility] Comment on above: Result Comment: Canc elled via OM: Order cancelled - Patient discharged Performed By: #### L 500.2500, L100.0100 ####[facility] [address] [place], [address] Potassium Normal 3.3-5.1 [facility] Comment on above: Result Comment: Canc elled via OM: Order cancelled - Patient discharged Performed By: #### L 500.2500, L100.0100 ####[facility] [address] [place], [address] Basic Metabolic Profile (BMP) Normal 133-145 [facility] Comment on above: Result Comment: Canc elled via OM: Order cancelled - Patient discharged Performed By: #### L 500.2500, L100.0100 ####[facility] [address] [place], [address] CBC W/Diff, Automatedon 06-2 Absolute Neut Normal 2.0-7.7 [facility] Comment on above: Result Comment: Canc elled via OM: Order cancelled - Patient discharged Performed By: #### L 500.2500, L100.0100 ####[facility] [address] [place], [address] HCT Normal 37-47 [facility] Comment on above: Result Comment: Canc elled via OM: Order cancelled - Patient discharged Performed By: #### L 500.2500, L100.0100 ####[facility] [address] [place], [address] HGB Normal 12.0-15.0 [facility] Comment on above: Result Comment: Canc elled via OM: Order cancelled - Patient discharged Performed By: #### L 500.2500, L100.0100 ####[facility] [address] [place], [address] MCH Normal 27.0-32.0 [facility] Comment on above: Result Comment: Canc elled via OM: Order cancelled - Patient discharged Performed By: #### L 500.2500, L100.0100 ####[facility] [address] [place], [address] MCHC Normal 32-36 [facility] Comment on above: Result Comment: Canc elled via OM: Order cancelled - Patient discharged Performed By: #### L 500.2500, L100.0100 ####[facility] [address] [place], [address] MCV Normal 81-99 [facility] Comment on above: Result Comment: Canc elled via OM: Order cancelled - Patient discharged Performed By: #### L 500.2500, L100.0100 ####[facility] [address] [place], [address] NEUT% Normal 47-70 [facility] Comment on above: Result Comment: Canc elled via OM: Order cancelled - Patient discharged Performed By: #### L 500.2500, L100.0100 ####[facility] [address] [place], [address] PLT Normal 150-450 [facility] Comment on above: Result Comment: Canc elled via OM: Order cancelled - Patient discharged Performed By: #### L 500.2500, L100.0100 ####[facility] [address] [place], [address] RBC Normal 4.2-5.4 [facility] Comment on above: Result Comment: Canc elled via OM: Order cancelled - Patient discharged Performed By: #### L 500.2500, L100.0100 ####[facility] [address] [place], [address] RDW CV Normal 11.6-14.6 [facility] Comment on above: Result Comment: Canc elled via OM: Order cancelled - Patient discharged Performed By: #### L 500.2500, L100.0100 ####[facility] [address] [place], [address] RDW SD Normal 35.1-43.9 [facility] Comment on above: Result Comment: Canc elled via OM: Order cancelled - Patient discharged Performed By: #### L 500.2500, L100.0100 ####[facility] [address] [place], [address] WBC Normal 4.4-11.0 [facility] Comment on above: Result Comment: Canc elled via OM: Order cancelled - Patient discharged Performed By: #### L 500.2500, L100.0100 ####[facility] [address] [place], [address] Basic Metabolic Profile (BMP )on 02-22-2025 BUN Normal 4-19 [facility] Comment on above: Result Comment: Canc elled via OM: Order cancelled - Patient discharged Performed By: #### L 500.2500, L100.0100 ####[facility] [address] [place], [address] BUN/CRE Normal 10-20 [facility] Comment on above: Result Comment: Canc elled via OM: Order cancelled - Patient discharged Performed By: #### L 500.2500, L100.0100 ####[facility] [address] [place], [address] Calcium Normal 7.6-11.0 [facility] Comment on above: Result Comment: Canc elled via OM: Order cancelled - Patient discharged Performed By: #### L 500.2500, L100.0100 ####[facility] [address] [place], [address] CL Normal 98-108 [facility] Comment on above: Result Comment: Canc elled via OM: Order cancelled - Patient discharged Performed By: #### L 500.2500, L100.0100 ####[facility] [address] [place], [address] CO2 Normal 21.0-32.0 [facility] Comment on above: Result Comment: Canc elled via OM: Order cancelled - Patient discharged Performed By: #### L 500.2500, L100.0100 ####[facility] [address] [place], [address] CREAT,SERUM Normal 0.70-1.20 [facility] Comment on above: Result Comment: Canc elled via OM: Order cancelled - Patient discharged Performed By: #### L 500.2500, L100.0100 ####[facility] [address] [place], [address] eGFR Normal >60 [facility] Comment on above: Result Comment: Canc elled via OM: Order cancelled - Patient discharged Performed By: #### L 500.2500, L100.0100 ####[facility] [address] [place], [address] GAP Normal 5-15 [facility] Comment on above: Result Comment: Canc elled via OM: Order cancelled - Patient discharged Performed By: #### L 500.2500, L100.0100 ####[facility] [address] [place], [address] GLU Normal 70-99 [facility] Comment on above: Result Comment: Canc elled via OM: Order cancelled - Patient discharged Performed By: #### L 500.2500, L100.0100 ####[facility] [address] [place], [address] Potassium Normal 3.3-5.1 [facility] Comment on above: Result Comment: Canc elled via OM: Order cancelled - Patient discharged Performed By: #### L 500.2500, L100.0100 ####[facility] [address] [place], [address] Basic Metabolic Profile (BMP) Normal 133-145 [facility] Comment on above: Result Comment: Canc elled via OM: Order cancelled - Patient discharged Performed By: #### L 500.2500, L100.0100 ####[facility] [address] [place], [address] CBC W/Diff, Automatedon 06-2 Absolute Neut Normal 2.0-7.7 [facility] Comment on above: Result Comment: Canc elled via OM: Order cancelled - Patient discharged Performed By: #### L 500.2500, L100.0100 ####[facility] [address] [place], [address] HCT Normal 37-47 [facility] Comment on above: Result Comment: Canc elled via OM: Order cancelled - Patient discharged Performed By: #### L 500.2500, L100.0100 ####[facility] [address] [place], [address] HGB Normal 12.0-15.0 [facility] Comment on above: Result Comment: Canc elled via OM: Order cancelled - Patient discharged Performed By: #### L 500.2500, L100.0100 ####[facility] [address] [place], [address] MCH Normal 27.0-32.0 [facility] Comment on above: Result Comment: Canc elled via OM: Order cancelled - Patient discharged Performed By: #### L 500.2500, L100.0100 ####[facility] [address] [place], [address] MCHC Normal 32-36 [facility] Comment on above: Result Comment: Canc elled via OM: Order cancelled - Patient discharged Performed By: #### L 500.2500, L100.0100 ####[facility] [address] [place], [address] MCV Normal 81-99 [facility] Comment on above: Result Comment: Canc elled via OM: Order cancelled - Patient discharged Performed By: #### L 500.2500, L100.0100 ####[facility] [address] [place], [address] NEUT% Normal 47-70 [facility] Comment on above: Result Comment: Canc elled via OM: Order cancelled - Patient discharged Performed By: #### L 500.2500, L100.0100 ####[facility] [address] [place], [address] PLT Normal 150-450 [facility] Comment on above: Result Comment: Canc elled via OM: Order cancelled - Patient discharged Performed By: #### L 500.2500, L100.0100 ####[facility] [address] [place], [address] RBC Normal 4.2-5.4 [facility] Comment on above: Result Comment: Canc elled via OM: Order cancelled - Patient discharged Performed By: #### L 500.2500, L100.0100 ####[facility] [address] [place], [address] RDW CV Normal 11.6-14.6 [facility] Comment on above: Result Comment: Canc elled via OM: Order cancelled - Patient discharged Performed By: #### L 500.2500, L100.0100 ####[facility] [address] [place], [address] RDW SD Normal 35.1-43.9 [facility] Comment on above: Result Comment: Canc elled via OM: Order cancelled - Patient discharged Performed By: #### L 500.2500, L100.0100 ####[facility] [address] [place], [address] WBC Normal 4.4-11.0 [facility] Comment on above: Result Comment: Canc elled via OM: Order cancelled - Patient discharged Performed By: #### L 500.2500, L100.0100 ####[facility] [address] [place], [address] Basic Metabolic Profile (BMP )on 02-21-2025 BUN Normal 4-19 [facility] Comment on above: Result Comment: Canc elled via OM: Order cancelled - Patient discharged Performed By: #### L 500.2500, L100.0100 ####[facility] [address] [place], [address] BUN/CRE Normal 10-20 [facility] Comment on above: Result Comment: Canc elled via OM: Order cancelled - Patient discharged Performed By: #### L 500.2500, L100.0100 ####[facility] [address] [place], [address] Calcium Normal 7.6-11.0 [facility] Comment on above: Result Comment: Canc elled via OM: Order cancelled - Patient discharged Performed By: #### L 500.2500, L100.0100 ####[facility] [address] [place], [address] CL Normal 98-108 [facility] Comment on above: Result Comment: Canc elled via OM: Order cancelled - Patient discharged Performed By: #### L 500.2500, L100.0100 ####[facility] [address] [place], [address] CO2 Normal 21.0-32.0 [facility] Comment on above: Result Comment: Canc elled via OM: Order cancelled - Patient discharged Performed By: #### L 500.2500, L100.0100 ####[facility] [address] [place], [address] CREAT,SERUM Normal 0.70-1.20 [facility] Comment on above: Result Comment: Canc elled via OM: Order cancelled - Patient discharged Performed By: #### L 500.2500, L100.0100 ####[facility] [address] [place], [address] eGFR Normal >60 [facility] Comment on above: Result Comment: Canc elled via OM: Order cancelled - Patient discharged Performed By: #### L 500.2500, L100.0100 ####[facility] [address] [place], [address] GAP Normal 5-15 [facility] Comment on above: Result Comment: Canc elled via OM: Order cancelled - Patient discharged Performed By: #### L 500.2500, L100.0100 ####[facility] [address] [place], [address] GLU Normal 70-99 [facility] Comment on above: Result Comment: Canc elled via OM: Order cancelled - Patient discharged Performed By: #### L 500.2500, L100.0100 ####[facility] [address] [place], [address] Potassium Normal 3.3-5.1 [facility] Comment on above: Result Comment: Canc elled via OM: Order cancelled - Patient discharged Performed By: #### L 500.2500, L100.0100 ####[facility] [address] [place], [address] Basic Metabolic Profile (BMP) Normal 133-145 [facility] Comment on above: Result Comment: Canc elled via OM: Order cancelled - Patient discharged Performed By: #### L 500.2500, L100.0100 ####[facility] [address] [place], [address] CBC W/Diff, Automatedon 06-2 Absolute Neut Normal 2.0-7.7 [facility] Comment on above: Result Comment: Canc elled via OM: Order cancelled - Patient discharged Performed By: #### L 500.2500, L100.0100 ####[facility] [address] [place], [address] HCT Normal 37-47 [facility] Comment on above: Result Comment: Canc elled via OM: Order cancelled - Patient discharged Performed By: #### L 500.2500, L100.0100 ####[facility] [address] [place], [address] HGB Normal 12.0-15.0 [facility] Comment on above: Result Comment: Canc elled via OM: Order cancelled - Patient discharged Performed By: #### L 500.2500, L100.0100 ####[facility] [address] [place], [address] MCH Normal 27.0-32.0 [facility] Comment on above: Result Comment: Canc elled via OM: Order cancelled - Patient discharged Performed By: #### L 500.2500, L100.0100 ####[facility] [address] [place], [address] MCHC Normal 32-36 [facility] Comment on above: Result Comment: Canc elled via OM: Order cancelled - Patient discharged Performed By: #### L 500.2500, L100.0100 ####[facility] [address] [place], [address] MCV Normal 81-99 [facility] Comment on above: Result Comment: Canc elled via OM: Order cancelled - Patient discharged Performed By: #### L 500.2500, L100.0100 ####[facility] [address] [place], [address] NEUT% Normal 47-70 [facility] Comment on above: Result Comment: Canc elled via OM: Order cancelled - Patient discharged Performed By: #### L 500.2500, L100.0100 ####[facility] [address] [place], [address] PLT Normal 150-450 [facility] Comment on above: Result Comment: Canc elled via OM: Order cancelled - Patient discharged Performed By: #### L 500.2500, L100.0100 ####[facility] [address] [place], [address] RBC Normal 4.2-5.4 [facility] Comment on above: Result Comment: Canc elled via OM: Order cancelled - Patient discharged Performed By: #### L 500.2500, L100.0100 ####[facility] [address] [place], [address] RDW CV Normal 11.6-14.6 [facility] Comment on above: Result Comment: Canc elled via OM: Order cancelled - Patient discharged Performed By: #### L 500.2500, L100.0100 ####[facility] [address] [place], [address] RDW SD Normal 35.1-43.9 [facility] Comment on above: Result Comment: Canc elled via OM: Order cancelled - Patient discharged Performed By: #### L 500.2500, L100.0100 ####[facility] [address] [place], [address] WBC Normal 4.4-11.0 [facility] Comment on above: Result Comment: Canc elled via OM: Order cancelled - Patient discharged Performed By: #### L 500.2500, L100.0100 ####[facility] [address] [place], [address] Basic Metabolic Profile (BMP )on 02-20-2025 BUN Normal 4-19 [facility] Comment on above: Result Comment: Canc elled via OM: Order cancelled - Patient discharged Performed By: #### L 100.0100, L500.2500 ####[facility] [address] [place], [address] BUN/CRE Normal 10-20 [facility] Comment on above: Result Comment: Canc elled via OM: Order cancelled - Patient discharged Performed By: #### L 100.0100, L500.2500 ####[facility] [address] [place], [address] Calcium Normal 7.6-11.0 [facility] Comment on above: Result Comment: Canc elled via OM: Order cancelled - Patient discharged Performed By: #### L 100.0100, L500.2500 ####[facility] [address] [place], [address] CL Normal 98-108 [facility] Comment on above: Result Comment: Canc elled via OM: Order cancelled - Patient discharged Performed By: #### L 100.0100, L500.2500 ####[facility] [address] [place], [address] CO2 Normal 21.0-32.0 [facility] Comment on above: Result Comment: Canc elled via OM: Order cancelled - Patient discharged Performed By: #### L 100.0100, L500.2500 ####[facility] [address] [place], [address] CREAT,SERUM Normal 0.70-1.20 [facility] Comment on above: Result Comment: Canc elled via OM: Order cancelled - Patient discharged Performed By: #### L 100.0100, L500.2500 ####[facility] [address] [place], [address] eGFR Normal >60 [facility] Comment on above: Result Comment: Canc elled via OM: Order cancelled - Patient discharged Performed By: #### L 100.0100, L500.2500 ####[facility] [address] [place], [address] GAP Normal 5-15 [facility] Comment on above: Result Comment: Canc elled via OM: Order cancelled - Patient discharged Performed By: #### L 100.0100, L500.2500 ####[facility] [address] [place], [address] GLU Normal 70-99 [facility] Comment on above: Result Comment: Canc elled via OM: Order cancelled - Patient discharged Performed By: #### L 100.0100, L500.2500 ####[facility] [address] [place], [address] Potassium Normal 3.3-5.1 [facility] Comment on above: Result Comment: Canc elled via OM: Order cancelled - Patient discharged Performed By: #### L 100.0100, L500.2500 ####[facility] [address] [place], [address] Basic Metabolic Profile (BMP) Normal 133-145 [facility] Comment on above: Result Comment: Canc elled via OM: Order cancelled - Patient discharged Performed By: #### L 100.0100, L500.2500 ####[facility] [address] [place], [address] Bedside Glucoseon - FINGERSTICK GLU 385 mg/dL High 74-106 [facility] Comment on above: Result Comment: KATARINA GEMENT OF PATIENT CARE PER NURSING PROTOCOL Performed By: #### L 501.080 ####[facility] [address] [place], [address] FINGERSTICK GLU 419 mg/dL High 74-106 [facility] Comment on above: Result Comment: KATARINA GEMENT OF PATIENT CARE PER NURSING PROTOCOL Performed By: #### L 501.080 ####[facility] [address] [place], [address] CBC W/Diff, Automatedon 06-2 Absolute Neut Normal 2.0-7.7 [facility] Comment on above: Result Comment: Canc elled via OM: Order cancelled - Patient discharged Performed By: #### L 100.0100, L500.2500 ####[facility] [address] [place], [address] HCT Normal 37-47 [facility] Comment on above: Result Comment: Canc elled via OM: Order cancelled - Patient discharged Performed By: #### L 100.0100, L500.2500 ####[facility] [address] [place], [address] HGB Normal 12.0-15.0 [facility] Comment on above: Result Comment: Canc elled via OM: Order cancelled - Patient discharged Performed By: #### L 100.0100, L500.2500 ####[facility] [address] [place], [address] MCH Normal 27.0-32.0 [facility] Comment on above: Result Comment: Canc elled via OM: Order cancelled - Patient discharged Performed By: #### L 100.0100, L500.2500 ####[facility] [address] [place], [address] MCHC Normal 32-36 [facility] Comment on above: Result Comment: Canc elled via OM: Order cancelled - Patient discharged Performed By: #### L 100.0100, L500.2500 ####[facility] [address] [place], [address] MCV Normal 81-99 [facility] Comment on above: Result Comment: Canc elled via OM: Order cancelled - Patient discharged Performed By: #### L 100.0100, L500.2500 ####[facility] [address] [place], [address] NEUT% Normal 47-70 [facility] Comment on above: Result Comment: Canc elled via OM: Order cancelled - Patient discharged Performed By: #### L 100.0100, L500.2500 ####[facility] [address] [place], [address] PLT Normal 150-450 [facility] Comment on above: Result Comment: Canc elled via OM: Order cancelled - Patient discharged Performed By: #### L 100.0100, L500.2500 ####[facility] [address] [place], [address] RBC Normal 4.2-5.4 [facility] Comment on above: Result Comment: Canc elled via OM: Order cancelled - Patient discharged Performed By: #### L 100.0100, L500.2500 ####[facility] [address] [place], [address] RDW CV Normal 11.6-14.6 [facility] Comment on above: Result Comment: Canc elled via OM: Order cancelled - Patient discharged Performed By: #### L 100.0100, L500.2500 ####[facility] [address] [place], [address] RDW SD Normal 35.1-43.9 [facility] Comment on above: Result Comment: Canc elled via OM: Order cancelled - Patient discharged Performed By: #### L 100.0100, L500.2500 ####[facility] [address] [place], [address] WBC Normal 4.4-11.0 [facility] Comment on above: Result Comment: Canc elled via OM: Order cancelled - Patient discharged Performed By: #### L 100.0100, L500.2500 ####[facility] [address] [place], [address] Basic Metabolic Profile (BMP )on 02-19-2025 BUN Normal 4-19 [facility] Comment on above: Result Comment: Canc elled via OM: Order cancelled - Patient discharged Performed By: #### L 500.2500, L100.0100 ####[facility] [address] [place], [address] BUN/CRE Normal 10-20 [facility] Comment on above: Result Comment: Canc elled via OM: Order cancelled - Patient discharged Performed By: #### L 500.2500, L100.0100 ####[facility] [address] [place], [address] Calcium Normal 7.6-11.0 [facility] Comment on above: Result Comment: Canc elled via OM: Order cancelled - Patient discharged Performed By: #### L 500.2500, L100.0100 ####[facility] [address] [place], [address] CL Normal 98-108 [facility] Comment on above: Result Comment: Canc elled via OM: Order cancelled - Patient discharged Performed By: #### L 500.2500, L100.0100 ####[facility] [address] [place], [address] CO2 Normal 21.0-32.0 [facility] Comment on above: Result Comment: Canc elled via OM: Order cancelled - Patient discharged Performed By: #### L 500.2500, L100.0100 ####[facility] [address] [place], [address] CREAT,SERUM Normal 0.70-1.20 [facility] Comment on above: Result Comment: Canc elled via OM: Order cancelled - Patient discharged Performed By: #### L 500.2500, L100.0100 ####[facility] [address] [place], [address] eGFR Normal >60 [facility] Comment on above: Result Comment: Canc elled via OM: Order cancelled - Patient discharged Performed By: #### L 500.2500, L100.0100 ####[facility] [address] [place], [address] GAP Normal 5-15 [facility] Comment on above: Result Comment: Canc elled via OM: Order cancelled - Patient discharged Performed By: #### L 500.2500, L100.0100 ####[facility] [address] [place], [address] GLU Normal 70-99 [facility] Comment on above: Result Comment: Canc elled via OM: Order cancelled - Patient discharged Performed By: #### L 500.2500, L100.0100 ####[facility] [address] [place], [address] Potassium Normal 3.3-5.1 [facility] Comment on above: Result Comment: Canc elled via OM: Order cancelled - Patient discharged Performed By: #### L 500.2500, L100.0100 ####[facility] [address] [place], [address] Basic Metabolic Profile (BMP) Normal 133-145 [facility] Comment on above: Result Comment: Canc elled via OM: Order cancelled - Patient discharged Performed By: #### L 500.2500, L100.0100 ####[facility] [address] [place], [address] CBC W/Diff, Automatedon 06-2 -2024 Absolute Neut Normal 2.0-7.7 [facility] Comment on above: Result Comment: Canc elled via OM: Order cancelled - Patient discharged Performed By: #### L 500.2500, L100.0100 ####[facility] [address] [place], [address] HCT Normal 37-47 [facility] Comment on above: Result Comment: Canc elled via OM: Order cancelled - Patient discharged Performed By: #### L 500.2500, L100.0100 ####[facility] [address] [place], [address] HGB Normal 12.0-15.0 [facility] Comment on above: Result Comment: Canc elled via OM: Order cancelled - Patient discharged Performed By: #### L 500.2500, L100.0100 ####[facility] [address] [place], [address] MCH Normal 27.0-32.0 [facility] Comment on above: Result Comment: Canc elled via OM: Order cancelled - Patient discharged Performed By: #### L 500.2500, L100.0100 ####[facility] [address] [place], [address] MCHC Normal 32-36 [facility] Comment on above: Result Comment: Canc elled via OM: Order cancelled - Patient discharged Performed By: #### L 500.2500, L100.0100 ####[facility] [address] [place], [address] MCV Normal 81-99 [facility] Comment on above: Result Comment: Canc elled via OM: Order cancelled - Patient discharged Performed By: #### L 500.2500, L100.0100 ####[facility] [address] [place], [address] NEUT% Normal 47-70 [facility] Comment on above: Result Comment: Canc elled via OM: Order cancelled - Patient discharged Performed By: #### L 500.2500, L100.0100 ####[facility] [address] [place], [address] PLT Normal 150-450 [facility] Comment on above: Result Comment: Canc elled via OM: Order cancelled - Patient discharged Performed By: #### L 500.2500, L100.0100 ####[facility] [address] [place], [address] RBC Normal 4.2-5.4 [facility] Comment on above: Result Comment: Canc elled via OM: Order cancelled - Patient discharged Performed By: #### L 500.2500, L100.0100 ####[facility] [address] [place], [address] RDW CV Normal 11.6-14.6 [facility] Comment on above: Result Comment: Canc elled via OM: Order cancelled - Patient discharged Performed By: #### L 500.2500, L100.0100 ####[facility] [address] [place], [address] RDW SD Normal 35.1-43.9 [facility] Comment on above: Result Comment: Canc elled via OM: Order cancelled - Patient discharged Performed By: #### L 500.2500, L100.0100 ####[facility] [address] [place], [address] WBC Normal 4.4-11.0 [facility] Comment on above: Result Comment: Canc elled via OM: Order cancelled - Patient discharged Performed By: #### L 500.2500, L100.0100 ####[facility] [address] [place], [address] 12 Lead EKGon 02-18-2025 12 Lead EKG Normal [facility] Absolute lymphocyte countOrd ered By: Billy Kothari on 02-18-2025 Lymphocytes Auto (Unsp spec) [#/Vol] 1.53 10*3/uL 0.83-4.51 [facility] Anion gap in Serum or Plasma Ordered By: Billy Kothari on 02-18-2025 Anion gap [Moles/Vol] 11 mmol/L 5-15 [facility] Automated lymphocyte count a s percentage of total leukocytesOrdered By: Billy Kothari on 02-18-2025 Lymphocytes/100 WBC Auto (Unsp spec) 12.5 % Low 19- [facility] BUN/creatinine ratioOrdered By: Billy Kothari on 02-18-2025 Urea nitrogen/Creatinine [Mass ratio] 19.9 mg/mg - [facility] Basic Metabolic Profile (BMP )on 02-18-2025 BUN/CRE 19.9 RATIO Normal - [facility] Comment on above: Performed By: #### L 500.2500, L100.0100 ####[facility] [address] [place], [address] Calcium [Mass/Vol] 10.7 mg/dL Normal 7.6-11.0 [facility] Comment on above: Performed By: #### L 500.2500, L100.0100 ####[facility] [address] [place], [address] Chloride [Moles/Vol] 97 mmol/L Low 98-108 [facility] Comment on above: Performed By: #### L 500.2500, L100.0100 ####[facility] [address] [place], [address] CO2 [Moles/Vol] 28.1 mmol/L Normal 21.0-32.0 [facility] Comment on above: Performed By: #### L 500.2500, L100.0100 ####[facility] [address] [place], [address] Creatinine [Mass/Vol] 1.26 mg/dL High 0.70-1.20 [facility] Comment on above: Performed By: #### L 500.2500, L100.0100 ####[facility] [address] [place], [address] ECRCL 34.58 ml/min Low 50-250 [facility] Comment on above: Performed By: #### L 500.2500, L100.0100 ####[facility] [address] [place], [address] GAP 11 Normal 5-15 [facility] Comment on above: Performed By: #### L 500.2500, L100.0100 ####[facility] [address] [place], [address] GFR/1.73 sq M.predicted among non-blacks MDRD (S/P/Bld) [Vol rate/Area] 43 mL/min/{1.73_m2} Low >60 [facility] Comment on above: Result Comment: mL/m in/1.73m2 CKD-EPI Creatinine Equation (2020) Performed By: #### L 500.2500, L100.0100 ####[facility] [address] [place], [address] Glucose [Mass/Vol] 174 mg/dL High 70-99 [facility] Comment on above: Performed By: #### L 500.2500, L100.0100 ####[facility] [address] [place], [address] Potassium [Moles/Vol] 6.0 mmol/L Invalid Interpretation Code 3.3-5.1 [facility] Comment on above: Result Comment: Hemo lysis present, Results??could be affected.??Critical Result(s) Called EFINK at: 2254 by:VIET??Results read back by same.Hemolysis present, Results??could be affected.?? Performed By: #### L 500.2500, L100.0100 ####[facility] [address] [place], [address] Sodium [Moles/Vol] 136 mmol/L Normal 133-145 [facility] Comment on above: Performed By: #### L 500.2500, L100.0100 ####[facility] [address] [place], [address] Urea nitrogen [Mass/Vol] 25 mg/dL High 4-19 [facility] Comment on above: Performed By: #### L 500.2500, L100.0100 ####[facility] [address] [place], [address] BUN Normal -19 [facility] Comment on above: Result Comment: Canc elled via OM: Order cancelled - Patient discharged Performed By: #### L 100.0100, L500.2500 ####[facility] [address] [place], [address] BUN/CRE Normal 10-20 [facility] Comment on above: Result Comment: Canc elled via OM: Order cancelled - Patient discharged Performed By: #### L 100.0100, L500.2500 ####[facility] [address] [place], [address] Calcium Normal 7.6-11.0 [facility] Comment on above: Result Comment: Canc elled via OM: Order cancelled - Patient discharged Performed By: #### L 100.0100, L500.2500 ####[facility] [address] [place], [address] CL Normal 98-108 [facility] Comment on above: Result Comment: Canc elled via OM: Order cancelled - Patient discharged Performed By: #### L 100.0100, L500.2500 ####[facility] [address] [place], [address] CO2 Normal 21.0-32.0 [facility] Comment on above: Result Comment: Canc elled via OM: Order cancelled - Patient discharged Performed By: #### L 100.0100, L500.2500 ####[facility] [address] [place], [address] CREAT,SERUM Normal 0.70-1.20 [facility] Comment on above: Result Comment: Canc elled via OM: Order cancelled - Patient discharged Performed By: #### L 100.0100, L500.2500 ####[facility] [address] [place], [address] eGFR Normal >60 [facility] Comment on above: Result Comment: Canc elled via OM: Order cancelled - Patient discharged Performed By: #### L 100.0100, L500.2500 ####[facility] [address] [place], [address] GAP Normal 5-15 [facility] Comment on above: Result Comment: Canc elled via OM: Order cancelled - Patient discharged Performed By: #### L 100.0100, L500.2500 ####[facility] [address] [place], [address] GLU Normal 70-99 [facility] Comment on above: Result Comment: Canc elled via OM: Order cancelled - Patient discharged Performed By: #### L 100.0100, L500.2500 ####[facility] [address] [place], [address] Potassium Normal 3.3-5.1 [facility] Comment on above: Result Comment: Canc elled via OM: Order cancelled - Patient discharged Performed By: #### L 100.0100, L500.2500 ####[facility] [address] [place], [address] Basic Metabolic Profile (BMP) Normal 133-145 [facility] Comment on above: Result Comment: Canc elled via OM: Order cancelled - Patient discharged Performed By: #### L 100.0100, L500.2500 ####[facility] [address] [place], [address] Basophil percentageOrdered B y: Billy Kothari on 02-18-2025 Basophils/100 WBC (Bld) 0.2 % 0-1 [facility] CBC W/Diff, Automatedon - Absolute Lymph 1.53 X10 3/uL Normal 0.83-4.51 [facility] Comment on above: Performed By: #### L 500.2500, L100.0100 ####[facility] [address] [place], [address] Absolute Neut 9.6 X10 3/uL High 2.0-7.7 [facility] Comment on above: Performed By: #### L 500.2500, L100.0100 ####[facility] [address] [place], [address] Basophils/100 WBC (Bld) 0.2 % Normal 0-1 [facility] Comment on above: Performed By: #### L 500.2500, L100.0100 ####[facility] [address] [place], [address] Eosinophils/100 WBC (Bld) 1.0 % Normal 0-5 [facility] Comment on above: Performed By: #### L 500.2500, L100.0100 ####[facility] [address] [place], [address] Erythrocyte distribution width (RBC) [Ratio] 15.9 % High 11.6-14.6 [facility] Comment on above: Performed By: #### L 500.2500, L100.0100 ####[facility] [address] [place], [address] Hematocrit (Bld) [Volume fraction] 35.8 % Low 37-47 [facility] Comment on above: Performed By: #### L 500.2500, L100.0100 ####[facility] [address] [place], [address] Hemoglobin (Bld) [Mass/Vol] 10.9 g/dL Low 12.0-15.0 [facility] Comment on above: Performed By: #### L 500.2500, L100.0100 ####[facility] [address] [place], [address] IG% 0.900 Normal 0.0-0.9 [facility] Comment on above: Result Comment: IG% - Immature Granulocytes (promyelocytes, myelocytes andmetamyelocytes) > 1% indicates that a LEFT SHIFT is Present. Performed By: #### L 500.2500, L100.0100 ####[facility] [address] [place], [address] Lymphocytes/100 WBC (Bld) 12.5 % Low 19-41 [facility] Comment on above: Performed By: #### L 500.2500, L100.0100 ####[facility] [address] [place], [address] MCH (RBC) [Entitic mass] 27.9 pg Normal 27.0-32.0 [facility] Comment on above: Performed By: #### L 500.2500, L100.0100 ####[facility] [address] [place], [address] MCHC (RBC) [Mass/Vol] 30.4 g/dL Low 32-36 [facility] Comment on above: Performed By: #### L 500.2500, L100.0100 ####[facility] [address] [place], [address] MCV (RBC) [Entitic vol] 91.6 fL Normal 81-99 [facility] Comment on above: Performed By: #### L 500.2500, L100.0100 ####[facility] [address] [place], [address] Monocytes/100 WBC (Bld) 6.7 % Normal 0-[address] [facility] Comment on above: Performed By: #### L 500.2500, L100.0100 ####[facility] [address] [place], [address] Neutrophils/100 WBC (Bld) 78.7 % High 47-70 [facility] Comment on above: Performed By: #### L 500.2500, L100.0100 ####[facility] [address] [place], [address] Nucleated RBC (Bld) [#/Vol] 0 10*3/uL Normal 0-5 [facility] Comment on above: Performed By: #### L 500.2500, L100.0100 ####[facility] [address] [place], [address] Platelet mean volume (Bld) [Entitic vol] 11.5 fL Normal 6.2-12.0 [facility] Comment on above: Performed By: #### L 500.2500, L100.0100 ####[facility] [address] [place], [address] Platelets (Bld) [#/Vol] 337 10*3/uL Normal 150-450 [facility] Comment on above: Performed By: #### L 500.2500, L100.0100 ####[facility] [address] [place], [address] RBC (Bld) [#/Vol] 3.91 10*6/uL Low 4.2-5.4 [facility] Comment on above: Performed By: #### L 500.2500, L100.0100 ####[facility] [address] [place], [address] RDW SD 52.1 fl High 35.1-43.9 [facility] Comment on above: Performed By: #### L 500.2500, L100.0100 ####[facility] [address] [place], [address] WBC (Bld) [#/Vol] 12.2 10*3/uL High 4.4-11.0 [facility] Comment on above: Performed By: #### L 500.2500, L100.0100 ####[facility] [address] [place], [address] Absolute Neut Normal 2.0-7.7 [facility] Comment on above: Result Comment: Canc elled via OM: Order cancelled - Patient discharged Performed By: #### L 100.0100, L500.2500 ####[facility] [address] [place], [address] HCT Normal 37-47 [facility] Comment on above: Result Comment: Canc elled via OM: Order cancelled - Patient discharged Performed By: #### L 100.0100, L500.2500 ####[facility] [address] [place], [address] HGB Normal 12.0-15.0 [facility] Comment on above: Result Comment: Canc elled via OM: Order cancelled - Patient discharged Performed By: #### L 100.0100, L500.2500 ####[facility] [address] [place], [address] MCH Normal 27.0-32.0 [facility] Comment on above: Result Comment: Canc elled via OM: Order cancelled - Patient discharged Performed By: #### L 100.0100, L500.2500 ####[facility] [address] [place], [address] MCHC Normal 32-36 [facility] [facility] Comment on above: Result Comment: Canc elled via OM: Order cancelled - Patient discharged Performed By: #### L 100.0100, L500.2500 ####[facility] [address] [place], [address] MCV Normal 81-99 [facility] Comment on above: Result Comment: Canc elled via OM: Order cancelled - Patient discharged Performed By: #### L 100.0100, L500.2500 ####[facility] [address] [place], [address] NEUT% Normal 47-70 [facility] Comment on above: Result Comment: Canc elled via OM: Order cancelled - Patient discharged Performed By: #### L 100.0100, L500.2500 ####[facility] [address] [place], [address] PLT Normal 150-450 [facility] Comment on above: Result Comment: Canc elled via OM: Order cancelled - Patient discharged Performed By: #### L 100.0100, L500.2500 ####[facility] [address] [place], [address] RBC Normal 4.2-5.4 [facility] Comment on above: Result Comment: Canc elled via OM: Order cancelled - Patient discharged Performed By: #### L 100.0100, L500.2500 ####[facility] [address] [place], [address] RDW CV Normal 11.6-14.6 [facility] Comment on above: Result Comment: Canc elled via OM: Order cancelled - Patient discharged Performed By: #### L 100.0100, L500.2500 ####[facility] [address] [place], [address] RDW SD Normal 35.1-43.9 [facility] Comment on above: Result Comment: Canc elled via OM: Order cancelled - Patient discharged Performed By: #### L 100.0100, L500.2500 ####[facility] [address] [place], [address] WBC Normal 4.4-11.0 [facility] Comment on above: Result Comment: Canc elled via OM: Order cancelled - Patient discharged Performed By: #### L 100.0100, L500.2500 ####[facility] [address] [place], [address] Carbon dioxide, total [Moles /volume] in Central venous bloodOrdered By: Billy Kothari on 02-18-2025 CO2 [Moles/Vol] 28.1 mmol/L 21.0-32.0 [facility] Chest 1 View (Portable)on Chest 1 View (Portable) Normal [facility] Chloride assayOrdered By: Dante Kothari on 02-18-2025 Chloride [Moles/Vol] 97 mmol/L Low 98-108 [facility] Emergency Department Summary on 02-18-2025 Emergency Department Summary Normal [facility] Eosinophil percentageOrdered By: Billy Kothari on 02-18-2025 Eosinophils/100 WBC (Bld) 1.0 % 0-5 [facility] Erythrocyte distribution wid th ratioOrdered By: Billy Kothari on 02-18-2025 Erythrocyte distribution width (RBC) [Ratio] 15.9 % High 11.6-14.6 [facility] Erythrocyte distribution wid th standard deviationOrdered By: Billy Kothari on 02-18-2025 Erythrocyte distribution width (RBC) [Ratio] 52.1 fl High 35.1-43.9 [facility] Glomerular filtration rate ( GFR) estimation/1.73 sq m using serum, plasma, or whole bOrdered By: Billy Kothari on 02-18-2025 GFR/1.73 sq M.predicted among non-blacks MDRD (S/P/Bld) [Vol rate/Area] 43 mL/min/{1.73_m2} Low >60 [facility] Hematocrit Auto (Bld) [Volum e fraction]Ordered By: Billy Kothari on 02-18-2025 Hematocrit (Bld) [Volume fraction] 35.8 % Low 37-47 [facility] Hemoglobin measurementOrdere d By: Billy Kothari on 02-18-2025 Hemoglobin (Bld) [Mass/Vol] 10.9 g/dL Low 12.0-15.0 [facility] Immature granulocytes/100 WB C Auto (Bld)Ordered By: Billy Kothari on 02-18-2025 Immature granulocytes/100 WBC (Bld) 0.900 % 0.0-0.9 [facility] L503.7505on 02-18-2025 Natriuretic peptide B (Bld) [Mass/Vol] 3811 pg/mL High <=1800 [facility] Comment on above: Result Comment: Hear t Failure Unlikely: < 300 pg/mLHeart Failure Likely< 50 Years: > 450 pg/mL50-75 Years: > 900 pg/mL>75 Years: > 1800 pg/mL Performed By: #### L 503.7505 ####[facility] [address] [place], [address] MCV (mean corpuscular volume ) determinationOrdered By: Billy Kothari on 02-18-2025 MCV (RBC) [Entitic vol] 91.6 fL 81-99 [facility] Mean corpuscular hemoglobin (MCH) determinationOrdered By: Billy Kothari on 02-18-2025 MCH (RBC) [Entitic mass] 27.9 pg 27.0-32.0 [facility] Monocyte percentageOrdered B y: Billy Kothari on 02-18-2025 Monocytes/100 WBC (Bld) 6.7 % 0-10 [facility] Natriuretic peptide.B prohor hayley N-Terminal [Mass/volume] in Serum or PlasmaOrdered By: Billy Kothari on 02-18-2025 Natriuretic peptide.B prohormone N-Terminal [Mass/Vol] 3811 pg/mL High <1800 [facility] Neutrophil percentageOrdered By: Billy Kothari on 02-18-2025 Neutrophils/100 WBC (Bld) 78.7 % High 47-70 [facility] Platelet countOrdered By: Dante Kothari on 02-18-2025 Platelets (Bld) [#/Vol] 337 10*3/uL 150-450 [facility] Potassiumon 02-18-2025 Potassium [Moles/Vol] 4.7 mmol/L Normal 3.3-5.1 [facility] Comment on above: Performed By: #### L 501.5600 ####[facility] [address] [place], [place], [id number] Potassium measurement (mass/ volume)Ordered By: Billy Kothari on 02-18-2025 Potassium (Unsp spec) [Mass/Vol] 4.7 mmol/L 3.3-5.1 [facility] RBC Auto (Bld) [#/Vol]Ordere d By: Billy Kothari on 02-18-2025 RBC (Bld) [#/Vol] 3.91 10*6/uL Low 4.2-5.4 [facility] Respiratory Cultureon 2024 RESPC Mixed normal respiratory karin. No Streptococcus pneumoniae, beta-hemolytic Streptococcus or Staphylococcus aureus isolated. Normal [facility] Comment on above: Performed By: #### M 100.2000, M100.2400 ####[facility] [address] [place], [place], [id number] Serum creatinine measurement (mass/volume)Ordered By: Billy Kothari on 02-18-2025 Creatinine [Mass/Vol] 1.26 mg/dL High 0.70-1.20 [facility] Serum glucose measurement (m ass/volume)Ordered By: Billy Kothari on 02-18-2025 Glucose [Mass/Vol] 174 mg/dL High 70-99 [facility] Serum or plasma calcium melanie urement (mass/volume)Ordered By: Billy Kothari on 02-18-2025 Calcium [Mass/Vol] 10.7 mg/dL 7.6-11.0 [facility] Serum or plasma urea nitroge n measurement (mass/volume)Ordered By: Billy Kothari on 02-18-2025 Urea nitrogen [Mass/Vol] 25 mg/dL High 4-19 [facility] Sodium levelOrdered By: Billy Kothari on 02-18-2025 Sodium [Moles/Vol] 136 mmol/L 133-145 [facility] White blood cell (WBC) count Ordered By: Billy Kothari on 02-18-2025 WBC (Bld) [#/Vol] 12.2 10*3/uL High 4.4-11.0 [facility] Absolute lymphocyte countOrd ered By: Heydi Amaya on 02-17-2025 Lymphocytes Auto (Unsp spec) [#/Vol] 0.58 10*3/uL Low 0.83-4.51 [facility] Anion gap in Serum or Plasma Ordered By: Heydi Amaya on 02-17-2025 Anion gap [Moles/Vol] 12 mmol/L 5-15 [facility] Automated lymphocyte count a s percentage of total leukocytesOrdered By: Heydi Amaya on 02-17-2025 Lymphocytes/100 WBC Auto (Unsp spec) 7.8 % Low 19-41 [facility] BUN/creatinine ratioOrdered By: Heydi Amaya on 02-17-2025 Urea nitrogen/Creatinine [Mass ratio] 23.0 mg/mg High 10- [facility] Basic Metabolic Profile (BMP )on 02-17-2025 BUN/CRE 23.0 RATIO High 06-19 [facility] Comment on above: Performed By: #### L 500.2500, L100.0100 ####[facility] [address] [place], [address] Calcium [Mass/Vol] 10.3 mg/dL Normal 7.6-11.0 [facility] Comment on above: Performed By: #### L 500.2500, L100.0100 ####[facility] [address] [place], [address] Chloride [Moles/Vol] 98 mmol/L Normal 98-108 [facility] Comment on above: Performed By: #### L 500.2500, L100.0100 ####[facility] [address] [place], [address] CO2 [Moles/Vol] 23.5 mmol/L Normal 21.0-32.0 [facility] Comment on above: Performed By: #### L 500.2500, L100.0100 ####[facility] [address] [place], [address] Creatinine [Mass/Vol] 1.15 mg/dL Normal 0.70-1.20 [facility] Comment on above: Performed By: #### L 500.2500, L100.0100 ####[facility] [address] [place], [address] ECRCL 37.29 ml/min Low 50-250 [facility] Comment on above: Performed By: #### L 500.2500, L100.0100 ####[facility] [address] [place], [address] GAP 12 Normal 5-15 [facility] Comment on above: Performed By: #### L 500.2500, L100.0100 ####[facility] [address] [place], [address] GFR/1.73 sq M.predicted among non-blacks MDRD (S/P/Bld) [Vol rate/Area] 48 mL/min/{1.73_m2} Low >60 [facility] Comment on above: Result Comment: mL/m in/1.73m2 CKD-EPI Creatinine Equation (2020) Performed By: #### L 500.2500, L100.0100 ####[facility] [address] [place], [address] Glucose [Mass/Vol] 426 mg/dL High 70-99 [facility] Comment on above: Performed By: #### L 500.2500, L100.0100 ####[facility] [address] [place], [address] Potassium [Moles/Vol] 5.3 mmol/L High 3.3-5.1 [facility] Comment on above: Performed By: #### L 500.2500, L100.0100 ####[facility] [address] [place], [address] Sodium [Moles/Vol] 134 mmol/L Normal 133-145 [facility] Comment on above: Performed By: #### L 500.2500, L100.0100 ####[facility] [address] [place], [address] Urea nitrogen [Mass/Vol] 27 mg/dL High 4-19 [facility] Comment on above: Performed By: #### L 500.2500, L100.0100 ####[facility] [address] [place], [address] Basophil percentageOrdered B y: Heydi Amaya on 02-17-2025 Basophils/100 WBC (Bld) 0.1 % 0-1 [facility] Bedside Glucoseon 02-17-2025 FINGERSTICK GLU 241 mg/dL High 74-106 [facility] Comment on above: Result Comment: KATARINA GARY OF PATIENT CARE PER NURSING PROTOCOL Performed By: #### L 501.080 ####[facility] [address] [place], [address] FINGERSTICK GLU 419 mg/dL High 74-106 [facility] Comment on above: Result Comment: KATARINA GEMENT OF PATIENT CARE PER NURSING PROTOCOL Performed By: #### L 501.080 ####[facility] [address] [place], [address] FINGERSTICK GLU 488 mg/dL Invalid Interpretation Code 74-106 [facility] Comment on above: Result Comment: KATARINA GEMENT OF PATIENT CARE PER NURSING PROTOCOL Performed By: #### L 501.080 ####[facility] [address] [place], [address] CBC W/Diff, Automatedon 06-2 0-2024 Absolute Lymph 0.58 X10 3/uL Low 0.83-4.51 [facility] Comment on above: Performed By: #### L 500.2500, L100.0100 ####[facility] [address] [place], [address] Absolute Neut 6.4 X10 3/uL Normal 2.0-7.7 [facility] Comment on above: Performed By: #### L 500.2500, L100.0100 ####[facility] [address] [place], [address] Basophils/100 WBC (Bld) 0.1 % Normal 0-1 [facility] Comment on above: Performed By: #### L 500.2500, L100.0100 ####[facility] [address] [place], [address] Eosinophils/100 WBC (Bld) 0.1 % Normal 0-5 [facility] Comment on above: Performed By: #### L 500.2500, L100.0100 ####[facility] [address] [place], [address] Erythrocyte distribution width (RBC) [Ratio] 15.6 % High 11.6-14.6 [facility] Comment on above: Performed By: #### L 500.2500, L100.0100 ####[facility] [address] [place], [address] Hematocrit (Bld) [Volume fraction] 32.6 % Low 37-47 [facility] Comment on above: Performed By: #### L 500.2500, L100.0100 ####[facility] [address] [place], [address] Hemoglobin (Bld) [Mass/Vol] 9.9 g/dL Low 12.0-15.0 [facility] Comment on above: Performed By: #### L 500.2500, L100.0100 ####[facility] [address] [place], [address] IG% 0.900 Normal 0.0-0.9 [facility] Comment on above: Result Comment: IG% - Immature Granulocytes (promyelocytes, myelocytes andmetamyelocytes) > 1% indicates that a LEFT SHIFT is Present. Performed By: #### L 500.2500, L100.0100 ####[facility] [address] [place], [address] Lymphocytes/100 WBC (Bld) 7.8 % Low 19-41 [facility] Comment on above: Performed By: #### L 500.2500, L100.0100 ####[facility] [address] [place], [address] MCH (RBC) [Entitic mass] 27.7 pg Normal 27.0-32.0 [facility] Comment on above: Performed By: #### L 500.2500, L100.0100 ####[facility] [address] [place], [address] MCHC (RBC) [Mass/Vol] 30.4 g/dL Low 32-36 [facility] Comment on above: Performed By: #### L 500.2500, L100.0100 ####[facility] [address] [place], [address] MCV (RBC) [Entitic vol] 91.3 fL Normal 81-99 [facility] Comment on above: Performed By: #### L 500.2500, L100.0100 ####[facility] [address] [place], [address] Monocytes/100 WBC (Bld) 5.0 % Normal 0-[address] [facility] Comment on above: Performed By: #### L 500.2500, L100.0100 ####[facility] [address] [place], [address] Neutrophils/100 WBC (Bld) 86.1 % High 47-70 [facility] Comment on above: Performed By: #### L 500.2500, L100.0100 ####[facility] [address] [place], [address] Nucleated RBC (Bld) [#/Vol] 0 10*3/uL Normal 0-5 [facility] Comment on above: Performed By: #### L 500.2500, L100.0100 ####[facility] [address] [place], [address] Platelet mean volume (Bld) [Entitic vol] 11.2 fL Normal 6.2-12.0 [facility] Comment on above: Performed By: #### L 500.2500, L100.0100 ####[facility] [address] [place], [address] Platelets (Bld) [#/Vol] 246 10*3/uL Normal 150-450 [facility] Comment on above: Performed By: #### L 500.2500, L100.0100 ####[facility] [address] [place], [address] RBC (Bld) [#/Vol] 3.57 10*6/uL Low 4.2-5.4 [facility] Comment on above: Performed By: #### L 500.2500, L100.0100 ####[facility] [address] [place], [address] RDW SD 51.5 fl High 35.1-43.9 [facility] Comment on above: Performed By: #### L 500.2500, L100.0100 ####[facility] [address] [place], [address] WBC (Bld) [#/Vol] 7.5 10*3/uL Normal 4.4-11.0 [facility] Comment on above: Performed By: #### L 500.2500, L100.0100 ####[facility] [address] [place], [address] Carbon dioxide, total [Moles /volume] in Central venous bloodOrdered By: Heydi Amaya on 02-17-2025 CO2 [Moles/Vol] 23.5 mmol/L 21.0-32.0 [facility] Chloride assayOrdered By: Davy Amaya on 02-17-2025 Chloride [Moles/Vol] 98 mmol/L 98-108 [facility] Electrocardiogram reportOrde red By: Marcelina Soto on 02-17-2025 EKG study [facility] Work Phone: Eosinophil percentageOrdered By: Heydi Amaya on 02-17-2025 Eosinophils/100 WBC (Bld) 0.1 % 0-5 [facility] Erythrocyte distribution wid th ratioOrdered By: Heydi Amaya on 02-17-2025 Erythrocyte distribution width (RBC) [Ratio] 15.6 % High 11.6-14.6 [facility] Erythrocyte distribution wid th standard deviationOrdered By: Heydi Amaya on 02-17-2025 Erythrocyte distribution width (RBC) [Ratio] 51.5 fl High 35.1-43.9 [facility] Glomerular filtration rate ( GFR) estimation/1.73 sq m using serum, plasma, or whole bOrdered By: Heydi Amaya on 02-17-2025 GFR/1.73 sq M.predicted among non-blacks MDRD (S/P/Bld) [Vol rate/Area] 48 mL/min/{1.73_m2} Low >60 [facility] deOrdered By: Heydi Amaya on 02-17-2025 Glucose [Mass/Vol] 241 mg/dL High 74-106 [facility] Hematocrit Auto (Bld) [Volum e fraction]Ordered By: Heydi Amaya on 02-17-2025 Hematocrit (Bld) [Volume fraction] 32.6 % Low 37-47 [facility] Hemoglobin measurementOrdere d By: Heydi Amaya on 02-17-2025 Hemoglobin (Bld) [Mass/Vol] 9.9 g/dL Low 12.0-15.0 [facility] Immature granulocytes/100 WB C Auto (Bld)Ordered By: Heydi Amaya on 02-17-2025 Immature granulocytes/100 WBC (Bld) 0.900 % 0.0-0.9 [facility] MCV (mean corpuscular volume ) determinationOrdered By: Heydi Amaya on 02-17-2025 MCV (RBC) [Entitic vol] 91.3 fL 81-99 [facility] Mean corpuscular hemoglobin (MCH) determinationOrdered By: Heydi Amaya on 02-17-2025 MCH (RBC) [Entitic mass] 27.7 pg 27.0-32.0 [facility] Monocyte percentageOrdered B y: Heydi Amaya on 02-17-2025 Monocytes/100 WBC (Bld) 5.0 % 0-10 [facility] Neutrophil percentageOrdered By: Heydi Amaya on 02-17-2025 Neutrophils/100 WBC (Bld) 86.1 % High 47-70 [facility] Platelet countOrdered By: Davy Amaya on 02-17-2025 Platelets (Bld) [#/Vol] 246 10*3/uL 150-450 [facility] Potassium measurement (mass/ volume)Ordered By: Heydi Amaya on 02-17-2025 Potassium (Unsp spec) [Mass/Vol] 5.3 mmol/L High 3.3-5.1 [facility] RBC Auto (Bld) [#/Vol]Ordere d By: Heydi Amaya on 02-17-2025 RBC (Bld) [#/Vol] 3.57 10*6/uL Low 4.2-5.4 [facility] Serum creatinine measurement (mass/volume)Ordered By: Heydi Amaya on 02-17-2025 Creatinine [Mass/Vol] 1.15 mg/dL 0.70-1.20 [facility] Serum glucose measurement (m ass/volume)Ordered By: Heydi Amaya on 02-17-2025 Glucose [Mass/Vol] 426 mg/dL High 70-99 [facility] Serum or plasma calcium melanie urement (mass/volume)Ordered By: Heydi Amaya on 02-17-2025 Calcium [Mass/Vol] 10.3 mg/dL 7.6-11.0 [facility] Serum or plasma urea nitroge n measurement (mass/volume)Ordered By: Heydi Amaya on 02-17-2025 Urea nitrogen [Mass/Vol] 27 mg/dL High 4-19 [facility] Sodium levelOrdered By: Rodolfo Amaya on 02-17-2025 Sodium [Moles/Vol] 134 mmol/L 133-145 [facility] White blood cell (WBC) count Ordered By: Heydi Amaya on 02-17-2025 WBC (Bld) [#/Vol] 7.5 10*3/uL 4.4-11.0 [facility] Basic Metabolic Profile (BMP )on 02-16-2025 BUN/CRE 22.0 RATIO High 10-20 [facility] Comment on above: Performed By: #### L 500.2500, L100.0500 ####[facility] [address] [place], [address] Calcium [Mass/Vol] 10.7 mg/dL Normal 7.6-11.0 [facility] Comment on above: Performed By: #### L 500.2500, L100.0500 ####[facility] [address] [place], [address] Chloride [Moles/Vol] 97 mmol/L Low 98-108 [facility] Comment on above: Performed By: #### L 500.2500, L100.0500 ####[facility] [address] [place], [address] CO2 [Moles/Vol] 29.5 mmol/L Normal 21.0-32.0 [facility] Comment on above: Performed By: #### L 500.2500, L100.0500 ####[facility] [address] [place], [address] Creatinine [Mass/Vol] 0.97 mg/dL Normal 0.70-1.20 [facility] Comment on above: Performed By: #### L 500.2500, L100.0500 ####[facility] [address] [place], [address] ECRCL 44.69 ml/min Low 50-250 [facility] Comment on above: Performed By: #### L 500.2500, L100.0500 ####[facility] [address] [place], [address] GAP 12 Normal 5-15 [facility] Comment on above: Performed By: #### L 500.2500, L100.0500 ####[facility] [address] [place], [address] GFR/1.73 sq M.predicted among non-blacks MDRD (S/P/Bld) [Vol rate/Area] 58 mL/min/{1.73_m2} Low >60 [facility] Comment on above: Result Comment: mL/m in/1.73m2 CKD-EPI Creatinine Equation (2020) Performed By: #### L 500.2500, L100.0500 ####[facility] [address] [place], [address] Glucose [Mass/Vol] 98 mg/dL Normal 70-99 [facility] Comment on above: Performed By: #### L 500.2500, L100.0500 ####[facility] [address] [place], [address] Potassium [Moles/Vol] 4.7 mmol/L Normal 3.3-5.1 [facility] Comment on above: Performed By: #### L 500.2500, L100.0500 ####[facility] [address] [place], [address] Sodium [Moles/Vol] 138 mmol/L Normal 133-145 [facility] Comment on above: Performed By: #### L 500.2500, L100.0500 ####[facility] [address] [place], [address] Urea nitrogen [Mass/Vol] 21 mg/dL High -19 [facility] Comment on above: Performed By: #### L 500.2500, L100.0500 ####[facility] [address] [place], [address] Bedside Glucoseon 02-16-2025 FINGERSTICK GLU 254 mg/dL High 74-106 [facility] Comment on above: Result Comment: KATARINA GEMENT OF PATIENT CARE PER NURSING PROTOCOL Performed By: #### L 501.080 ####[facility] [address] [place], [address] FINGERSTICK GLU 234 mg/dL High 74-106 [facility] Comment on above: Result Comment: KATARINA GEMENT OF PATIENT CARE PER NURSING PROTOCOL Performed By: #### L 501.080 ####[facility] [address] [place], [address] FINGERSTICK GLU 91 mg/dL Normal 74-106 [facility] Comment on above: Result Comment: KATARINA GEMENT OF PATIENT CARE PER NURSING PROTOCOL Performed By: #### L 501.080 ####[facility] [address] [place], [address] FINGERSTICK GLU 63 mg/dL Low 74-106 [facility] Comment on above: Result Comment: KATARINA GEMENT OF PATIENT CARE PER NURSING PROTOCOL Performed By: #### L 501.080 ####[facility] [address] [place], [address] CBC-Complete Blood Cnt No Di ffon 02-16-2025 Erythrocyte distribution width (RBC) [Ratio] 16.1 % High 11.6-14.6 [facility] Comment on above: Performed By: #### L 500.2500, L100.0500 ####[facility] [address] [place], [address] Hematocrit (Bld) [Volume fraction] 36.2 % Low 37-47 [facility] Comment on above: Performed By: #### L 500.2500, L100.0500 ####[facility] [address] [place], [address] Hemoglobin (Bld) [Mass/Vol] 11.0 g/dL Low 12.0-15.0 [facility] Comment on above: Performed By: #### L 500.2500, L100.0500 ####[facility] [address] [place], [address] MCH (RBC) [Entitic mass] 27.4 pg Normal 27.0-32.0 [facility] Comment on above: Performed By: #### L 500.2500, L100.0500 ####[facility] [address] [place], [address] MCHC (RBC) [Mass/Vol] 30.4 g/dL Low 32-36 [facility] Comment on above: Performed By: #### L 500.2500, L100.0500 ####[facility] [address] [place], [address] MCV (RBC) [Entitic vol] 90.0 fL Normal 81-99 [facility] Comment on above: Performed By: #### L 500.2500, L100.0500 ####[facility] [address] [place], [address] Platelet mean volume (Bld) [Entitic vol] 11.0 fL Normal 6.2-12.0 [facility] Comment on above: Performed By: #### L 500.2500, L100.0500 ####[facility] [address] [place], [address] Platelets (Bld) [#/Vol] 250 10*3/uL Normal 150-450 [facility] Comment on above: Performed By: #### L 500.2500, L100.0500 ####[facility] [address] [place], [address] RBC (Bld) [#/Vol] 4.02 10*6/uL Low 4.2-5.4 [facility] Comment on above: Performed By: #### L 500.2500, L100.0500 ####[facility] [address] [place], [address] RDW SD 52.3 fl High 35.1-43.9 [facility] Comment on above: Performed By: #### L 500.2500, L100.0500 ####[facility] [address] [place], [address] WBC (Bld) [#/Vol] 9.2 10*3/uL Normal 4.4-11.0 [facility] Comment on above: Performed By: #### L 500.2500, L100.0500 ####[facility] [address] [place], [address] Gram Stainon 02-16-2025 GS Acceptable Specimen? Yes (<25 Epithelial cells per/lpf) Gram Stain Rare Gram positive cocci Rare Gram positive rods No Epithelial cells Rare White Blood Cells Normal [facility] Comment on above: Performed By: #### M 100.2000, M100.2400 ####[facility] [address] [place], [address] Gram stainOrdered By: Ankit Jean-Baptiste on 02-16-2025 Microscopic observation Gram stain Nom (Unsp spec) [facility] Microbial respiratory cultur eOrdered By: Nestor Bartlett on 02-16-2025 Microorganism identified Cx Nom (Unsp spec) or Staphylococcus aureus isolated. [facility] 12 Lead EKGon 02-15-2025 12 Lead EKG Normal [facility] Absolute lymphocyte countOrd ered By: Remus Ungur on 02-15-2025 Lymphocytes Auto (Unsp spec) [#/Vol] 0.98 10*3/uL 0.83-4.51 [facility] Anion gap in Serum or Plasma Ordered By: Remus Ungur on 02-15-2025 Anion gap [Moles/Vol] 9 mmol/L 5-15 [facility] Automated lymphocyte count a s percentage of total leukocytesOrdered By: Remus Ungur on 02-15-2025 Lymphocytes/100 WBC Auto (Unsp spec) 10.9 % Low 19-41 [facility] BUN/creatinine ratioOrdered By: Remus Ungur on 02-15-2025 Urea nitrogen/Creatinine [Mass ratio] 23.1 mg/mg High 10-20 [facility] Basic Metabolic Profile (BMP )on 02-15-2025 BUN/CRE 23.1 RATIO High 10-20 [facility] Comment on above: Performed By: #### L 500.2500, L503.7505, L501.4021, L100.0100 ####[facility] [address] [place], [address] Calcium [Mass/Vol] 10.7 mg/dL Normal 7.6-11.0 [facility] Comment on above: Performed By: #### L 500.2500, L503.7505, L501.4021, L100.0100 ####[facility] [address] [place], [address] Chloride [Moles/Vol] 98 mmol/L Normal 98-108 [facility] Comment on above: Performed By: #### L 500.2500, L503.7505, L501.4021, L100.0100 ####[facility] [address] [place], [address] CO2 [Moles/Vol] 30.9 mmol/L Normal 21.0-32.0 [facility] Comment on above: Performed By: #### L 500.2500, L503.7505, L501.4021, L100.0100 ####[facility] [address] [place], [address] Creatinine [Mass/Vol] 1.04 mg/dL Normal 0.70-1.20 [facility] Comment on above: Performed By: #### L 500.2500, L503.7505, L501.4021, L100.0100 ####[facility] [address] [place], [address] ECRCL 41.98 ml/min Low 50-250 [facility] Comment on above: Performed By: #### L 500.2500, L503.7505, L501.4021, L100.0100 ####[facility] [address] [place], [address] GAP 9 Normal 5-15 [facility] Comment on above: Performed By: #### L 500.2500, L503.7505, L501.4021, L100.0100 ####[facility] [address] [place], [address] GFR/1.73 sq M.predicted among non-blacks MDRD (S/P/Bld) [Vol rate/Area] 54 mL/min/{1.73_m2} Low >60 [facility] Comment on above: Result Comment: mL/m in/1.73m2 CKD-EPI Creatinine Equation (2020) Performed By: #### L 500.2500, L503.7505, L501.4021, L100.0100 ####[facility] [address] [place], [address] Glucose [Mass/Vol] 97 mg/dL Normal 70-99 [facility] Comment on above: Performed By: #### L 500.2500, L503.7505, L501.4021, L100.0100 ####[facility] [address] [place], [address] Potassium [Moles/Vol] 4.3 mmol/L Normal 3.3-5.1 [facility] Comment on above: Performed By: #### L 500.2500, L503.7505, L501.4021, L100.0100 ####[facility] [address] [place], [address] Sodium [Moles/Vol] 138 mmol/L Normal 133-145 [facility] Comment on above: Performed By: #### L 500.2500, L503.7505, L501.4021, L100.0100 ####[facility] [address] [place], [address] Urea nitrogen [Mass/Vol] 24 mg/dL High 4-19 [facility] Comment on above: Performed By: #### L 500.2500, L503.7505, L501.4021, L100.0100 ####[facility] [address] [place], [address] Basophil percentageOrdered B y: Remus Ungur on 02-15-2025 Basophils/100 WBC (Bld) 0.1 % 0-1 [facility] Bedside Glucoseon 02-15-2025 FINGERSTICK GLU 152 mg/dL High 74-106 [facility] Comment on above: Result Comment: KATARINA GEMENT OF PATIENT CARE PER NURSING PROTOCOL Performed By: #### L 501.080 ####[facility] [address] [place], [address] FINGERSTICK GLU 80 mg/dL Normal 74-106 [facility] Comment on above: Result Comment: KATARINA GEMENT OF PATIENT CARE PER NURSING PROTOCOL Performed By: #### L 501.080 ####[facility] [address] [place], [address] CBC W/Diff, Automatedon 01-29 Absolute Lymph 0.98 X10 3/uL Normal 0.83-4.51 [facility] Comment on above: Performed By: #### L 500.2500, L503.7505, L501.4021, L100.0100 ####[facility] [address] [place], [address] Absolute Neut 7.5 X10 3/uL Normal 2.0-7.7 [facility] Comment on above: Performed By: #### L 500.2500, L503.7505, L501.4021, L100.0100 ####[facility] [address] [place], [address] Basophils/100 WBC (Bld) 0.1 % Normal 0-1 [facility] Comment on above: Performed By: #### L 500.2500, L503.7505, L501.4021, L100.0100 ####[facility] [address] [place], [address] Eosinophils/100 WBC (Bld) 0.7 % Normal 0-5 [facility] Comment on above: Performed By: #### L 500.2500, L503.7505, L501.4021, L100.0100 ####[facility] [address] [place], [address] Erythrocyte distribution width (RBC) [Ratio] 16.2 % High 11.6-14.6 [facility] Comment on above: Performed By: #### L 500.2500, L503.7505, L501.4021, L100.0100 ####[facility] [address] [place], [address] Hematocrit (Bld) [Volume fraction] 33.5 % Low 37-47 [facility] Comment on above: Performed By: #### L 500.2500, L503.7505, L501.4021, L100.0100 ####[facility] [address] [place], [address] Hemoglobin (Bld) [Mass/Vol] 10.1 g/dL Low 12.0-15.0 [facility] Comment on above: Performed By: #### L 500.2500, L503.7505, L501.4021, L100.0100 ####[facility] [address] [place], [address] IG% 1.000 High 0.0-0.9 [facility] Comment on above: Result Comment: IG% - Immature Granulocytes (promyelocytes, myelocytes andmetamyelocytes) > 1% indicates that a LEFT SHIFT is Present. Performed By: #### L 500.2500, L503.7505, L501.4021, L100.0100 ####[facility] [address] [place], [address] Lymphocytes/100 WBC (Bld) 10.9 % Low 19-41 [facility] Comment on above: Performed By: #### L 500.2500, L503.7505, L501.4021, L100.0100 ####[facility] [address] [place], [address] MCH (RBC) [Entitic mass] 27.0 pg Normal 27.0-32.0 [facility] Comment on above: Performed By: #### L 500.2500, L503.7505, L501.4021, L100.0100 ####[facility] [address] [place], [address] MCHC (RBC) [Mass/Vol] 30.1 g/dL Low 32-36 [facility] Comment on above: Performed By: #### L 500.2500, L503.7505, L501.4021, L100.0100 ####[facility] [address] [place], [address] MCV (RBC) [Entitic vol] 89.6 fL Normal 81-99 [facility] Comment on above: Performed By: #### L 500.2500, L503.7505, L501.4021, L100.0100 ####[facility] [address] [place], [address] Monocytes/100 WBC (Bld) 4.8 % Normal 0-10 [facility] Comment on above: Performed By: #### L 500.2500, L503.7505, L501.4021, L100.0100 ####[facility] [address] [place], [address] Neutrophils/100 WBC (Bld) 82.5 % High 47-70 [facility] Comment on above: Performed By: #### L 500.2500, L503.7505, L501.4021, L100.0100 ####[facility] [address] [place], [address] Nucleated RBC (Bld) [#/Vol] 0 10*3/uL Normal 0-5 [facility] Comment on above: Performed By: #### L 500.2500, L503.7505, L501.4021, L100.0100 ####[facility] [address] [place], [address] Platelet mean volume (Bld) [Entitic vol] 10.4 fL Normal 6.2-12.0 [facility] Comment on above: Performed By: #### L 500.2500, L503.7505, L501.4021, L100.0100 ####[facility] [address] [place], [address] Platelets (Bld) [#/Vol] 243 10*3/uL Normal 150-450 [facility] Comment on above: Performed By: #### L 500.2500, L503.7505, L501.4021, L100.0100 ####[facility] [address] [place], [address] RBC (Bld) [#/Vol] 3.74 10*6/uL Low 4.2-5.4 [facility] Comment on above: Performed By: #### L 500.2500, L503.7505, L501.4021, L100.0100 ####[facility] [address] [place], [address] RDW SD 52.9 fl High 35.1-43.9 [facility] Comment on above: Performed By: #### L 500.2500, L503.7505, L501.4021, L100.0100 ####[facility] [address] [place], [address] WBC (Bld) [#/Vol] 9.0 10*3/uL Normal 4.4-11.0 [facility] Comment on above: Performed By: #### L 500.2500, L503.7505, L501.4021, L100.0100 ####[facility] [address] [place], [address] Carbon dioxide, total [Moles /volume] in Central venous bloodOrdered By: Robert Allison on 02-15-2025 CO2 [Moles/Vol] 30.9 mmol/L 21.0-32.0 [facility] Chest 1 View (Portable)on Chest 1 View (Portable) Normal [facility] Chloride assayOrdered By: Ester Allison on 02-15-2025 Chloride [Moles/Vol] 98 mmol/L 98-108 [facility] Emergency Department Summary on 02-15-2025 Emergency Department Summary Normal [facility] Eosinophil percentageOrdered By: Robert Allison on 02-15-2025 Eosinophils/100 WBC (Bld) 0.7 % 0-5 [facility] Erythrocyte distribution wid th ratioOrdered By: Robert Allison on 02-15-2025 Erythrocyte distribution width (RBC) [Ratio] 16.2 % High 11.6-14.6 [facility] Erythrocyte distribution wid th standard deviationOrdered By: Robert Allison on 02-15-2025 Erythrocyte distribution width (RBC) [Ratio] 52.9 fl High 35.1-43.9 [facility] Glomerular filtration rate ( GFR) estimation/1.73 sq m using serum, plasma, or whole bOrdered By: Robert Allison on 02-15-2025 GFR/1.73 sq M.predicted among non-blacks MDRD (S/P/Bld) [Vol rate/Area] 54 mL/min/{1.73_m2} Low >60 [facility] H AND P Exam - Hospitaliston 02-15-2025 H&P Exam - Hospitalist Normal [facility] Hematocrit Auto (Bld) [Volum e fraction]Ordered By: [place] Keegan on 02-15-2025 Hematocrit (Bld) [Volume fraction] 33.5 % Low 37-47 [facility] Hemoglobin measurementOrdere d By: [facility] on 02-15-2025 Hemoglobin (Bld) [Mass/Vol] 10.1 g/dL Low 12.0-15.0 [facility] Immature granulocytes/100 WB C Auto (Bld)Ordered By: [facility] Allison on 02-15-2025 Immature granulocytes/100 WBC (Bld) 1.000 % High 0.0-0.9 [facility] L499.0042on 02-15-2025 Trop T High Sen 113 ng/L Invalid Interpretation Code <=14 [facility] Comment on above: Result Comment: Crit ical Result(s) Called at: 02/15/2025-13:14 by: Pat to Jena Smiley.??Results read back by same. Performed By: #### L 499.0042 ####[facility] [address] [place], [address] L499.0043on 02-15-2025 Trop T High Sen 114 ng/L Invalid Interpretation Code <=14 [facility] Comment on above: Result Comment: Hemo lysis present, Results??could be affected.??CRIT CALLED BY ARCHIE MIXON TO JESSICA MOE AT 1607Critical Result(s) Called at: by:??Results read back bysame. Performed By: #### L 499.0043 ####[facility] [address] [place], [address] L501.4021on 02-15-2025 Trop T High Sen 117 ng/L Invalid Interpretation Code <=14 [facility] Comment on above: Result Comment: Crit ical Result(s) Called at:02/15/2025-11:47 by: Pat to Quin Lopez.??Results read back by same. Performed By: #### L 500.2500, L503.7505, L501.4021, L100.0100 ####[facility] [address] [place], [address] L503.7505on 02-15-2025 Natriuretic peptide B (Bld) [Mass/Vol] 4408 pg/mL High <=1800 [facility] Comment on above: Result Comment: Hear t Failure Unlikely: < 300 pg/mLHeart Failure Likely< 50 Years: > 450 pg/mL50-75 Years: > 900 pg/mL>75 Years: > 1800 pg/mL Performed By: #### L 500.2500, L503.7505, L501.4021, L100.0100 ####[facility] [address] [place], [address] L509.7001on 02-15-2025 Procalcitonin 0.27 ng/mL High <=0.10 [facility] Comment on above: Result Comment: Inte rpretation:<0.10-0.25 ng/mL: Antibiotic therapy discouraged. Bacterialinfection unlikely.0.25-0.50 ng/mL: Antibiotic therapy encouraged. Bacterialinfection possible.>0.50 ng/mL: Antibiotic therapy strongly encouraged.Suggestive of presence of bacterial infection.PCT should always be interpreted in the clinical context ofthe patient. Therefore, clinicians should use the PCTresults in conjunction with other laboratory findings andclinical signs of the patient. Performed By: #### L 509.7001 ####[facility] [address] [place], [address] MCV (mean corpuscular volume ) determinationOrdered By: Robert Allison on 02-15-2025 MCV (RBC) [Entitic vol] 89.6 fL 81-99 [facility] Mean corpuscular hemoglobin (MCH) determinationOrdered By: Rem Ungmasood on 02-15-2025 MCH (RBC) [Entitic mass] 27.0 pg 27.0-32.0 [facility] Monocyte percentageOrdered B y: Robert Allison on 02-15-2025 Monocytes/100 WBC (Bld) 4.8 % 0-10 [facility] Natriuretic peptide.B prohor hayley N-Terminal [Mass/volume] in Serum or PlasmaOrdered By: Robert Allison on 02-15-2025 Natriuretic peptide.B prohormone N-Terminal [Mass/Vol] 4408 pg/mL High <1800 [facility] Neutrophil percentageOrdered By: Robert Allison on 02-15-2025 Neutrophils/100 WBC (Bld) 82.5 % High 47-70 [facility] Platelet countOrdered By: Ester Allison on 02-15-2025 Platelets (Bld) [#/Vol] 243 10*3/uL 150-450 [facility] Potassium measurement (mass/ volume)Ordered By: Robert Allison on 02-15-2025 Potassium (Unsp spec) [Mass/Vol] 4.3 mmol/L 3.3-5.1 [facility] Procalcitonin [Mass/volume] in Serum or Plasma by ImmunoassayOrdered By: Nestor Bartlett on 02-15-2025 Procalcitonin IA [Mass/Vol] 0.27 ng/mL High <0.11 [facility] RBC Auto (Bld) [#/Vol]Ordere d By: Robert Allison on 02-15-2025 RBC (Bld) [#/Vol] 3.74 10*6/uL Low 4.2-5.4 [facility] Serum creatinine measurement (mass/volume)Ordered By: Harrietus Allison on 02-15-2025 Creatinine [Mass/Vol] 1.04 mg/dL 0.70-1.20 [facility] Serum glucose measurement (m ass/volume)Ordered By: Harrietus Allison on 02-15-2025 Glucose [Mass/Vol] 97 mg/dL 70-99 [facility] Serum or plasma calcium melanie urement (mass/volume)Ordered By: Harrietus Allison on 02-15-2025 Calcium [Mass/Vol] 10.7 mg/dL 7.6-11.0 [facility] Serum or plasma urea nitroge n measurement (mass/volume)Ordered By: Harrietus Allison on 02-15-2025 Urea nitrogen [Mass/Vol] 24 mg/dL High 4-19 [facility] Sodium levelOrdered By: Harrietmarcia walker Keegan on 02-15-2025 Sodium [Moles/Vol] 138 mmol/L 133-145 [facility] Troponin T.cardiac [Mass/vol ume] in Serum or Plasma by High sensitivity methodOrdered By: Harrietus Allison on 02-15-2025 Troponin T.cardiac High sensitivity method [Mass/Vol] 114 ng/L High <14 [facility] Troponin T.cardiac High sensitivity method [Mass/Vol] 113 ng/L High <14 [facility] Troponin T.cardiac High sensitivity method [Mass/Vol] 117 ng/L High <14 [facility] White blood cell (WBC) count Ordered By: Robert Keegan on 02-15-2025 WBC (Bld) [#/Vol] 9.0 10*3/uL 4.4-11.0 [facility] Bedside Glucoseon 02-13-2025 FINGERSTICK GLU 337 mg/dL High 74-106 [facility] Comment on above: Result Comment: KATARINA GEMENT OF PATIENT CARE PER NURSING PROTOCOL Performed By: #### L 501.080 ####[facility] [address] [place], [address] FINGERSTICK GLU 302 mg/dL High 74-106 [facility] Comment on above: Result Comment: KATARINA GEMENT OF PATIENT CARE PER NURSING PROTOCOL Performed By: #### L 501.080 ####[facility] [address] [place], [address] Discharge Instructionon 01-29 Discharge Instruction Normal [facility] deOrdered By: Lucio Borden on 02-13-2025 Glucose [Mass/Vol] 337 mg/dL High 74-106 [facility] Bedside Glucoseon 02-12-2025 FINGERSTICK GLU 236 mg/dL High 74-106 [facility] Comment on above: Result Comment: KATARINA GEMENT OF PATIENT CARE PER NURSING PROTOCOL Performed By: #### L 501.080 ####[facility] [address] [place], [address] FINGERSTICK GLU 112 mg/dL High [address] [place] [address] Comment on above: Result Comment: KATARINA GEMENT OF PATIENT CARE PER NURSING PROTOCOL Performed By: #### L 501.080 ####[facility] [address] [place], [address] FINGERSTICK GLU 471 mg/dL Invalid Interpretation Code -[address] [place] [address] Comment on above: Result Comment: Dr Carina javier FollowedMANAGEMENT OF PATIENT CARE PER NURSING PROTOCOL Performed By: #### L 501.080 ####[facility] [address] [place], [address] FINGERSTICK GLU 492 mg/dL Invalid Interpretation Code 74[address] [place] [address] Comment on above: Result Comment: Repe at TestMANAGEMENT OF PATIENT CARE PER NURSING PROTOCOL Performed By: #### L 501.080 ####[facility] [address] [place], [address] FINGERSTICK GLU 243 mg/dL High [address] [place] [address] Comment on above: Result Comment: KATARINA GEMENT OF PATIENT CARE PER NURSING PROTOCOL Performed By: #### L 501.080 ####[facility] [place] [address] [place], [address] FINGERSTICK GLU 312 mg/dL High [address] [place] [address] Comment on above: Result Comment: KATARINA GEMENT OF PATIENT CARE PER NURSING PROTOCOL Performed By: #### L 501.080 ####[facility] [address] [place], [address] FINGERSTICK GLU 246 mg/dL High [facility]106 [facility] Comment on above: Result Comment: KATARINA GEMENT OF PATIENT CARE PER NURSING PROTOCOL Performed By: #### L 501.080 ####[facility] [address] [place], [address] Bedside Glucoseon 02-11-2025 FINGERSTICK GLU 276 mg/dL High [address] [place] [address] Comment on above: Result Comment: KATARINA GEMENT OF PATIENT CARE PER NURSING PROTOCOL Performed By: #### L 501.080 ####[facility] [address] [place], [address] FINGERSTICK GLU 124 mg/dL High [address] [place] [address] Comment on above: Result Comment: KATARINA GEMENT OF PATIENT CARE PER NURSING PROTOCOL Performed By: #### L 501.080 ####[facility] [address] [place], [address] FINGERSTICK GLU 257 mg/dL High [address] [place] [address] Comment on above: Result Comment: KATARINA GEMENT OF PATIENT CARE PER NURSING PROTOCOL Performed By: #### L 501.080 ####[facility] [address] [place], [address] FINGERSTICK GLU 305 mg/dL High [address] [place] [address] Comment on above: Result Comment: KATARINA GEMENT OF PATIENT CARE PER NURSING PROTOCOL Performed By: #### L 501.080 ####[facility] [address] [place], [address] FINGERSTICK GLU 242 mg/dL High [address] [place] [address] Comment on above: Result Comment: KATARINA GEMENT OF PATIENT CARE PER NURSING PROTOCOL Performed By: #### L 501.080 ####[facility] [address] [place], [address] FINGERSTICK GLU 206 mg/dL High 74-106 [facility] Comment on above: Result Comment: KATARINA GARY OF PATIENT CARE PER NURSING PROTOCOL Performed By: #### L 501.080 ####[facility] [address] [place], [address] Anion gap in Serum or Plasma Ordered By: Lucio Borden on 02-10-2025 Anion gap [Moles/Vol] 14 mmol/L 5-15 [facility] BUN/creatinine ratioOrdered By: Lucio Borden on 02-10-2025 Urea nitrogen/Creatinine [Mass ratio] 20.8 mg/mg High - [facility] Basic Metabolic Profile (BMP )on 02-10-2025 BUN/CRE 20.8 RATIO High - [facility] Comment on above: Performed By: #### L 500.2500 ####[facility] [address] [place], [address] Calcium [Mass/Vol] 10.0 mg/dL Normal 7.6-11.0 [facility] Comment on above: Performed By: #### L 500.2500 ####[facility] [address] [place], [address] Chloride [Moles/Vol] 98 mmol/L Normal 98-108 [facility] Comment on above: Performed By: #### L 500.2500 ####[facility] [address] [place], [address] CO2 [Moles/Vol] 26.8 mmol/L Normal 21.0-32.0 [facility] Comment on above: Performed By: #### L 500.2500 ####[facility] [address] [place], [address] Creatinine [Mass/Vol] 1.10 mg/dL Normal 0.70-1.20 [facility] Comment on above: Performed By: #### L 500.2500 ####[facility] [address] [place], [address] ECRCL 39.32 ml/min Low 50-250 [facility] Comment on above: Performed By: #### L 500.2500 ####[facility] [address] [place], [address] GAP 14 Normal 5-15 [facility] Comment on above: Performed By: #### L 500.2500 ####[facility] [address] [place], [address] GFR/1.73 sq M.predicted among non-blacks MDRD (S/P/Bld) [Vol rate/Area] 50 mL/min/{1.73_m2} Low >60 [facility] Comment on above: Result Comment: mL/m in/1.73m2 CKD-EPI Creatinine Equation (2020) Performed By: #### L 500.2500 ####[facility] [address] [place], [address] Glucose [Mass/Vol] 361 mg/dL High 70-99 [facility] Comment on above: Performed By: #### L 500.2500 ####[facility] [address] [place], [address] Potassium [Moles/Vol] 4.9 mmol/L Normal 3.3-5.1 [facility] Comment on above: Performed By: #### L 500.2500 ####[facility] [address] [place], [address] Sodium [Moles/Vol] 139 mmol/L Normal 133-145 [facility] Comment on above: Performed By: #### L 500.2500 ####[facility] [address] [place], [address] Urea nitrogen [Mass/Vol] 23 mg/dL High 4-19 [facility] Comment on above: Performed By: #### L 500.2500 ####[facility] [address] [place], [address] Bedside Glucoseon 02-10-2025 FINGERSTICK GLU 167 mg/dL High 74-106 [facility] Comment on above: Result Comment: KATARINA GEMENT OF PATIENT CARE PER NURSING PROTOCOL Performed By: #### L 501.080 ####[facility] [address] [place], [address] FINGERSTICK GLU 78 mg/dL Normal 74-106 [facility] Comment on above: Result Comment: KATARINA GEMENT OF PATIENT CARE PER NURSING PROTOCOL Performed By: #### L 501.080 ####[facility] [address] [place], [address] FINGERSTICK GLU 64 mg/dL Low 74-106 [facility] Comment on above: Result Comment: KATARINA GEMENT OF PATIENT CARE PER NURSING PROTOCOL Performed By: #### L 501.080 ####[facility] [address] [place], [address] FINGERSTICK GLU 222 mg/dL High 74-106 [facility] Comment on above: Result Comment: KATARINA GEMENT OF PATIENT CARE PER NURSING PROTOCOL Performed By: #### L 501.080 ####[facility] [address] [place], [address] Carbon dioxide, total [Moles /volume] in Central venous bloodOrdered By: Lucio Borden on 02-10-2025 CO2 [Moles/Vol] 26.8 mmol/L 21.0-32.0 [facility] Chloride assayOrdered By: Chen Borden on 02-10-2025 Chloride [Moles/Vol] 98 mmol/L 98-108 [facility] Glomerular filtration rate ( GFR) estimation/1.73 sq m using serum, plasma, or whole bOrdered By: Lucio Borden on 02-10-2025 GFR/1.73 sq M.predicted among non-blacks MDRD (S/P/Bld) [Vol rate/Area] 50 mL/min/{1.73_m2} Low >60 [facility] Potassium measurement (mass/ volume)Ordered By: Lucio Borden on 02-10-2025 Potassium (Unsp spec) [Mass/Vol] 4.9 mmol/L 3.3-5.1 [facility] RESPIRATORY PANEL MOLECULARo n 02-10-2025 RP PANEL Normal [facility] Comment on above: Performed By: #### M 100.082 ####[facility] [address] [place], [address] Serum creatinine measurement (mass/volume)Ordered By: Lucio Borden on 02-10-2025 Creatinine [Mass/Vol] 1.10 mg/dL 0.70-1.20 [facility] Serum glucose measurement (m ass/volume)Ordered By: Lucio Borden on 02-10-2025 Glucose [Mass/Vol] 361 mg/dL High 70-99 [facility] Serum or plasma calcium melanie urement (mass/volume)Ordered By: Lucio Borden on 02-10-2025 Calcium [Mass/Vol] 10.0 mg/dL 7.6-11.0 [facility] Serum or plasma urea nitroge n measurement (mass/volume)Ordered By: Lucio Borden on 02-10-2025 Urea nitrogen [Mass/Vol] 23 mg/dL High 4-19 [facility] Sodium levelOrdered By: Lucio Borden on 02-10-2025 Sodium [Moles/Vol] 139 mmol/L 133-145 [facility] Absolute lymphocyte countOrd ered By: Jeremiah Corrales on 02-09-2025 Lymphocytes Auto (Unsp spec) [#/Vol] 0.69 10*3/uL Low 0.83-4.51 [facility] Anion gap in Serum or Plasma Ordered By: Jeremiah Corrales on 02-09-2025 Anion gap [Moles/Vol] 12 mmol/L 5-15 [facility] Automated lymphocyte count a s percentage of total leukocytesOrdered By: Jeremiah Corrales on 02-09-2025 Lymphocytes/100 WBC Auto (Unsp spec) 7.3 % Low 19-41 [facility] BUN/creatinine ratioOrdered By: Jeremiah Corrales on 02-09-2025 Urea nitrogen/Creatinine [Mass ratio] 20.2 mg/mg High 10- [facility] Basic Metabolic Profile (BMP )on 02-09-2025 BUN/CRE 20.2 RATIO High - [facility] Comment on above: Performed By: #### L 100.0100, L501.4021, L500.2500 ####[facility] [address] [place], [address] Calcium [Mass/Vol] 10.2 mg/dL Normal 7.6-11.0 [facility] Comment on above: Performed By: #### L 100.0100, L501.4021, L500.2500 ####[facility] [address] [place], [address] Chloride [Moles/Vol] 98 mmol/L Normal 98-108 [facility] Comment on above: Performed By: #### L 100.0100, L501.4021, L500.2500 ####[facility] [address] [place], [address] CO2 [Moles/Vol] 29.9 mmol/L Normal 21.0-32.0 [facility] Comment on above: Performed By: #### L 100.0100, L501.4021, L500.2500 ####[facility] [address] [place], [address] Creatinine [Mass/Vol] 1.16 mg/dL Normal 0.70-1.20 [facility] Comment on above: Performed By: #### L 100.0100, L501.4021, L500.2500 ####[facility] [address] [place], [address] ECRCL 37.42 ml/min Low 50-250 [facility] Comment on above: Performed By: #### L 100.0100, L501.4021, L500.2500 ####[facility] [address] [place], [address] GAP 12 Normal 5-15 [facility] Comment on above: Performed By: #### L 100.0100, L501.4021, L500.2500 ####[facility] [address] [place], [address] GFR/1.73 sq M.predicted among non-blacks MDRD (S/P/Bld) [Vol rate/Area] 47 mL/min/{1.73_m2} Low >60 [facility] Comment on above: Result Comment: mL/m in/1.73m2 CKD-EPI Creatinine Equation (2020) Performed By: #### L 100.0100, L501.4021, L500.2500 ####[facility] [address] [place], [address] Glucose [Mass/Vol] 173 mg/dL High 70-99 [facility] Comment on above: Performed By: #### L 100.0100, L501.4021, L500.2500 ####[facility] [address] [place], [address] Potassium [Moles/Vol] 4.3 mmol/L Normal 3.3-5.1 [facility] Comment on above: Performed By: #### L 100.0100, L501.4021, L500.2500 ####[facility] [address] [place], [address] Sodium [Moles/Vol] 140 mmol/L Normal 133-145 [facility] Comment on above: Performed By: #### L 100.0100, L501.4021, L500.2500 ####[facility] [address] [place], [address] Urea nitrogen [Mass/Vol] 23 mg/dL High 4-19 [facility] Comment on above: Performed By: #### L 100.0100, L501.4021, L500.2500 ####[facility] [address] [place], [address] Basophil percentageOrdered B y: Jeremiah Corrales on 02-09-2025 Basophils/100 WBC (Bld) 0.4 % 0-1 [facility] Bedside Glucoseon 02-09-2025 FINGERSTICK GLU 401 mg/dL High 74-106 [facility] Comment on above: Result Comment: KATARINA GEMENT OF PATIENT CARE PER NURSING PROTOCOL Performed By: #### L 501.080 ####[facility] [address] [place], [address] FINGERSTICK GLU 248 mg/dL High 74-106 [facility] Comment on above: Result Comment: KATARINA GEMENT OF PATIENT CARE PER NURSING PROTOCOL Performed By: #### L 501.080 ####[facility] [address] [place], [address] CBC W/Diff, Automatedon 01-29 PLT EST ADEQUATE Normal ADEQ [facility] Comment on above: Performed By: #### L 100.0100, L501.4021, L500.2500 ####[facility] [address] [place], [address] Carbon dioxide, total [Moles /volume] in Central venous bloodOrdered By: Jeremiah Corrales on 02-09-2025 CO2 [Moles/Vol] 29.9 mmol/L 21.0-32.0 [facility] Chest PA and Lateralon 02-09 Chest PA and Lateral Normal [facility] Chloride assayOrdered By: Enio Corrales on 02-09-2025 Chloride [Moles/Vol] 98 mmol/L 98-108 [facility] Emergency Department Summary on 02-09-2025 Emergency Department Summary Normal [facility] Eosinophil percentageOrdered By: Jeremiah Corrales on 02-09-2025 Eosinophils/100 WBC (Bld) 0.1 % 0-5 [facility] Erythrocyte distribution wid th ratioOrdered By: Jeremiah Corrales on 02-09-2025 Erythrocyte distribution width (RBC) [Ratio] 15.8 % High 11.6-14.6 [facility] Erythrocyte distribution wid th standard deviationOrdered By: Jeremiah Corrales on 02-09-2025 Erythrocyte distribution width (RBC) [Ratio] 51.3 fl High 35.1-43.9 [facility] Glomerular filtration rate ( GFR) estimation/1.73 sq m using serum, plasma, or whole bOrdered By: Jeremiah Corrales on 02-09-2025 GFR/1.73 sq M.predicted among non-blacks MDRD (S/P/Bld) [Vol rate/Area] 47 mL/min/{1.73_m2} Low >60 [facility] H AND P Exam - Hospitaliston 02-09-2025 H&P Exam - Hospitalist Normal [facility] Hematocrit Auto (Bld) [Volum e fraction]Ordered By: Jeremiah Corrales on 02-09-2025 Hematocrit (Bld) [Volume fraction] 37.9 % 37-47 [facility] Hemoglobin measurementOrdere d By: Jeremiah Corrales on 02-09-2025 Hemoglobin (Bld) [Mass/Vol] 11.5 g/dL Low 12.0-15.0 [facility] Immature granulocytes/100 WB C Auto (Bld)Ordered By: Jeremiah Corrales on 02-09-2025 Immature granulocytes/100 WBC (Bld) 0.800 % 0.0-0.9 [facility] L499.0042on 02-09-2025 Trop T High Sen 119 ng/L Invalid Interpretation Code <=14 [facility] Comment on above: Result Comment: Crit ical Result(s) Called VANE GRAVES at: 1520 by:VIET??Results read back by same. Performed By: #### L 499.0042 ####[facility] [address] [place], [address] L501.4021on 02-09-2025 Trop T High Sen 122 ng/L Invalid Interpretation Code <=14 [facility] Comment on above: Result Comment: Crit ical Result(s) Called at 1330: by: SHARONA ROWELL. ??Results read back by same. Performed By: #### L 100.0100, L501.4021, L500.2500 ####[facility] [address] [place], [address] L503.7505on 02-09-2025 Natriuretic peptide B (Bld) [Mass/Vol] 9616 pg/mL High <=1800 [facility] Comment on above: Result Comment: Hear t Failure Unlikely: < 300 pg/mLHeart Failure Likely< 50 Years: > 450 pg/mL50-75 Years: > 900 pg/mL>75 Years: > 1800 pg/mL Performed By: #### L 503.7505 ####[facility] [address] [place], [address] MCV (mean corpuscular volume ) determinationOrdered By: Jeremiah Corrales on 02-09-2025 MCV (RBC) [Entitic vol] 89.8 fL 81-99 [facility] Mean corpuscular hemoglobin (MCH) determinationOrdered By: Jeremiah Corrales on 02-09-2025 MCH (RBC) [Entitic mass] 27.3 pg 27.0-32.0 [facility] Monocyte percentageOrdered B y: Jeremiah Corrales on 02-09-2025 Monocytes/100 WBC (Bld) 4.5 % 0-10 [facility] Natriuretic peptide.B prohor hayley N-Terminal [Mass/volume] in Serum or PlasmaOrdered By: Jeremiah Corrales on 02-09-2025 Natriuretic peptide.B prohormone N-Terminal [Mass/Vol] 9616 pg/mL High <1800 [facility] Neutrophil percentageOrdered By: Jeremiah Corrales on 02-09-2025 Neutrophils/100 WBC (Bld) 86.9 % High 47-70 [facility] Platelet countOrdered By: Enio Corrales on 02-09-2025 Platelet count TNP [facility] Platelet estimateOrdered By: Jeremiah Corrales on 02-09-2025 Platelets LM Ql (Bld) ADEQUATE ADEQ [facility] Potassium measurement (mass/ volume)Ordered By: Jeremiah Corrales on 02-09-2025 Potassium (Unsp spec) [Mass/Vol] 4.3 mmol/L 3.3-5.1 [facility] RBC Auto (Bld) [#/Vol]Ordere d By: Jeremiah Corrales on 02-09-2025 RBC (Bld) [#/Vol] 4.22 10*6/uL 4.2-5.4 [facility] Respiratory pathogens detect ion panel by molecular detection methodOrdered By: Toon Gomez on 02-09-2025 Respiratory pathogens DNA and RNA panel BEBETO+probe (Resp) Parainfluenza 3 Abnormal [facility] Serum creatinine measurement (mass/volume)Ordered By: Jeremiah Corrales on 02-09-2025 Creatinine [Mass/Vol] 1.16 mg/dL 0.70-1.20 [facility] Serum glucose measurement (m ass/volume)Ordered By: Jeremiah Corrales on 02-09-2025 Glucose [Mass/Vol] 173 mg/dL High 70-99 [facility] Serum or plasma calcium melanie urement (mass/volume)Ordered By: Jeremiah Corrales on 02-09-2025 Calcium [Mass/Vol] 10.2 mg/dL 7.6-11.0 [facility] Serum or plasma urea nitroge n measurement (mass/volume)Ordered By: Jeremiah Corrales on 02-09-2025 Urea nitrogen [Mass/Vol] 23 mg/dL High 4-19 [facility] Sodium levelOrdered By: Jeremiah Corrales on 02-09-2025 Sodium [Moles/Vol] 140 mmol/L 133-145 [facility] Troponin T.cardiac [Mass/vol ume] in Serum or Plasma by High sensitivity methodOrdered By: Jeremiah Corrales on 02-09-2025 Troponin T.cardiac High sensitivity method [Mass/Vol] 119 ng/L High <14 [facility] Troponin T.cardiac High sensitivity method [Mass/Vol] 122 ng/L High <14 [facility] White blood cell (WBC) count Ordered By: Jeremiah Corrales on 02-09-2025 WBC (Bld) [#/Vol] 9.4 10*3/uL 4.4-11.0 [facility] Absolute lymphocyte countOrd ered By: Ramone Smiley on 02-07-2025 Lymphocytes Auto (Unsp spec) [#/Vol] 0.84 10*3/uL 0.83-4.51 [facility] Anion gap in Serum or Plasma Ordered By: Ramone Smilye on 02-07-2025 Anion gap [Moles/Vol] 12 mmol/L 5-15 [facility] Automated lymphocyte count a s percentage of total leukocytesOrdered By: Ramone Smiley on 02-07-2025 Lymphocytes/100 WBC Auto (Unsp spec) 7.3 % Low 19- [facility] BUN/creatinine ratioOrdered By: Ramone Smiley on 02-07-2025 Urea nitrogen/Creatinine [Mass ratio] 17.7 mg/mg 10- [facility] Basophil percentageOrdered B y: Ramone Smiley on 02-07-2025 Basophils/100 WBC (Bld) 0.1 % 0-1 [facility] Bilirubin, totalOrdered By: Ramone Smiley on 02-07-2025 Bilirubin [Mass/Vol] 0.25 mg/dL 0.00-1.30 [facility] CBC W/Diff, Automatedon 01-29 Absolute Lymph 0.84 X10 3/uL Normal 0.83-4.51 [facility] Comment on above: Order Comment: Order Date: 02/07/25Order Info: 0184-1 - CBCD Performed By: #### L 100.0100, L500.4050 ####[facility] [address] [place], [address] Absolute Neut 10.0 X10 3/uL High 2.0-7.7 [facility] Comment on above: Order Comment: Order Date: 02/07/25Order Info: 0184-1 - CBCD Performed By: #### L 100.0100, L500.4050 ####[facility] [address] [place], [address] Basophils/100 WBC (Bld) 0.1 % Normal 0-1 [facility] Comment on above: Order Comment: Order Date: 02/07/25Order Info: 0184-1 - CBCD Performed By: #### L 100.0100, L500.4050 ####[facility] [address] [place], [address] Eosinophils/100 WBC (Bld) 0.0 % Normal 0-5 [facility] Comment on above: Order Comment: Order Date: 02/07/25Order Info: 0184-1 - CBCD Performed By: #### L 100.0100, L500.4050 ####[facility] [address] [place], [address] Erythrocyte distribution width (RBC) [Ratio] 15.7 % High 11.6-14.6 [facility] Comment on above: Order Comment: Order Date: 02/07/25Order Info: 0184-1 - CBCD Performed By: #### L 100.0100, L500.4050 ####[facility] [address] [place], [address] Hematocrit (Bld) [Volume fraction] 36.8 % Low 37-47 [facility] Comment on above: Order Comment: Order Date: 02/07/25Order Info: 018- - CBCD Performed By: #### L 100.0100, L500.4050 ####[facility] [address] [place], [address] Hemoglobin (Bld) [Mass/Vol] 11.4 g/dL Low 12.0-15.0 [facility] Comment on above: Order Comment: Order Date: 02/07/25Order Info: 018- - CBCD Performed By: #### L 100.0100, L500.4050 ####[facility] [address] [place], [address] IG% 0.400 Normal 0.0-0.9 [facility] Comment on above: Order Comment: Order Date: 02/07/25Order Info: 0184-1 - CBCD Result Comment: IG% - Immature Granulocytes (promyelocytes, myelocytes andmetamyelocytes) > 1% indicates that a LEFT SHIFT is Present. Performed By: #### L 100.0100, L500.4050 ####[facility] [address] [place], [address] Lymphocytes/100 WBC (Bld) 7.3 % Low 19-41 [facility] Comment on above: Order Comment: Order Date: 02/07/25Order Info: 0184-1 - CBCD Performed By: #### L 100.0100, L500.4050 ####[facility] [address] [place], [address] MCH (RBC) [Entitic mass] 27.9 pg Normal 27.0-32.0 [facility] Comment on above: Order Comment: Order Date: 02/07/25Order Info: 0184-1 - CBCD Performed By: #### L 100.0100, L500.4050 ####[facility] [address] [place], [address] MCHC (RBC) [Mass/Vol] 31.0 g/dL Low 32-36 [facility] Comment on above: Order Comment: Order Date: 02/07/25Order Info: 0184-1 - CBCD Performed By: #### L 100.0100, L500.4050 ####[facility] [address] [place], [address] MCV (RBC) [Entitic vol] 90.2 fL Normal 81-[address] [facility] Comment on above: Order Comment: Order Date: 02/07/25Order Info: 0184-1 - CBCD Performed By: #### L 100.0100, L500.4050 ####[facility] [address] [place], [address] Monocytes/100 WBC (Bld) 5.2 % Normal 0-[address] [facility] [address] [facility] Comment on above: Order Comment: Order Date: 02/07/25Order Info: 0184-1 - CBCD Performed By: #### L 100.0100, L500.4050 ####[facility] [address] [place], [address] Neutrophils/100 WBC (Bld) 87.0 % High 47-70 [facility] Comment on above: Order Comment: Order Date: 02/07/25Order Info: 0184-1 - CBCD Performed By: #### L 100.0100, L500.4050 ####[facility] [address] [place], [address] Nucleated RBC (Bld) [#/Vol] 0 10*3/uL Normal 0-5 [facility] Comment on above: Order Comment: Order Date: 02/07/25Order Info: 0184-1 - CBCD Performed By: #### L 100.0100, L500.4050 ####[facility] [address] [place], [address] Platelet mean volume (Bld) [Entitic vol] 11.5 fL Normal 6.2-12.0 [facility] Comment on above: Order Comment: Order Date: 02/07/25Order Info: [id number]- - CBCD Performed By: #### L 100.0100, L500.4050 ####[facility] [address] [place], [address] Platelets (Bld) [#/Vol] 247 10*3/uL Normal 150-450 [facility] Comment on above: Order Comment: Order Date: 02/07/25Order Info: 0184-1 - CBCD Performed By: #### L 100.0100, L500.4050 ####[facility] [address] [place], [address] RBC (Bld) [#/Vol] 4.08 10*6/uL Low 4.2-5.4 [facility] Comment on above: Order Comment: Order Date: 02/07/25Order Info: 0184-1 - CBCD Performed By: #### L 100.0100, L500.4050 ####[facility] [address] [place], [address] RDW SD 51.8 fl High 35.1-43.9 [facility] Comment on above: Order Comment: Order Date: 02/07/25Order Info: 0184-1 - CBCD Performed By: #### L 100.0100, L500.4050 ####[facility] [address] [place], [address] WBC (Bld) [#/Vol] 11.5 10*3/uL High 4.4-11.0 [facility] Comment on above: Order Comment: Order Date: 02/07/25Order Info: 0184-1 - CBCD Performed By: #### L 100.0100, L500.4050 ####[facility] [address] [place], [address] Carbon dioxide, total [Moles /volume] in Central venous bloodOrdered By: Ramone Smiley on 02-07-2025 CO2 [Moles/Vol] 27.9 mmol/L 21.0-32.0 [facility] Chloride assayOrdered By: Richar Smiley on 02-07-2025 Chloride [Moles/Vol] 96 mmol/L Low 98-108 [facility] Comprehensive Metabolic Prof ilon 02-07-2025 Albumin [Mass/Vol] 3.3 g/dL Low 3.4-4.8 [facility] Comment on above: Order Comment: URINE UTOOrder Date: 02/07/25Order Info: 0786-1 - CMP Performed By: #### L 100.0100, L500.4050 ####[facility] [address] [place], [address] Albumin/Globulin [Mass ratio] 1.0 {ratio} Normal 0.9-2.4 [facility] Comment on above: Order Comment: URINE UTOOrder Date: 02/07/25Order Info: 0786-1 - CMP Performed By: #### L 100.0100, L500.4050 ####[facility] [address] [place], [address] ALK PHOS 86 U/L Normal 35-104 [facility] Comment on above: Order Comment: URINE UTOOrder Date: 02/07/25Order Info: 0786-1 - CMP Performed By: #### L 100.0100, L500.4050 ####[facility] [address] [place], [address] ALT [Catalytic activity/Vol] 20 U/L Normal <=34 [facility] Comment on above: Order Comment: URINE UTOOrder Date: 02/07/25Order Info: 0786-1 - CMP Performed By: #### L 100.0100, L500.4050 ####[facility] [address] [place], [address] AST [Catalytic activity/Vol] 29 U/L Normal <=31 [facility] Comment on above: Order Comment: URINE UTOOrder Date: 02/07/25Order Info: 0786-1 - CMP Performed By: #### L 100.0100, L500.4050 ####[facility] [address] [place], [address] Bilirubin [Mass/Vol] 0.25 mg/dL Normal 0.00-1.30 [facility] Comment on above: Order Comment: URINE UTOOrder Date: 02/07/25Order Info: 0786-1 - CMP Performed By: #### L 100.0100, L500.4050 ####[facility] [address] [place], [address] BUN/CRE 17.7 RATIO Normal 10-20 [facility] Comment on above: Order Comment: URINE UTOOrder Date: 02/07/25Order Info: 0786-1 - CMP Performed By: #### L 100.0100, L500.4050 ####[facility] [address] [place], [address] Calcium [Mass/Vol] 10.2 mg/dL Normal 7.6-11.0 [facility] Comment on above: Order Comment: URINE UTOOrder Date: 02/07/25Order Info: 0786-1 - CMP Performed By: #### L 100.0100, L500.4050 ####[facility] [address] [place], [address] Chloride [Moles/Vol] 96 mmol/L Low 98-108 [facility] Comment on above: Order Comment: URINE UTOOrder Date: 02/07/25Order Info: 785-1 - CMP Performed By: #### L 100.0100, L500.4050 ####[facility] [address] [place], [address] CO2 [Moles/Vol] 27.9 mmol/L Normal 21.0-32.0 [facility] Comment on above: Order Comment: URINE UTOOrder Date: 02/07/25Order Info: 785-1 - CMP Performed By: #### L 100.0100, L500.4050 ####[facility] [address] [place], [address] Creatinine [Mass/Vol] 1.37 mg/dL High 0.70-1.20 [facility] Comment on above: Order Comment: URINE UTOOrder Date: 02/07/25Order Info: 785-1 - CMP Performed By: #### L 100.0100, L500.4050 ####[facility] [address] [place], [address] GAP 12 Normal 5-15 [facility] Comment on above: Order Comment: URINE UTOOrder Date: 02/07/25Order Info: 07-1 - CMP Performed By: #### L 100.0100, L500.4050 ####[facility] [address] [place], [address] GFR/1.73 sq M.predicted among non-blacks MDRD (S/P/Bld) [Vol rate/Area] 39 mL/min/{1.73_m2} Low >60 [facility] Comment on above: Order Comment: URINE UTOOrder Date: 02/07/25Order Info: 07-1 - CMP Result Comment: mL/m in/1.73m2 CKD-EPI Creatinine Equation (2020) Performed By: #### L 100.0100, L500.4050 ####[facility] [address] [place], [address] Globulin (S) [Mass/Vol] 3.2 g/dL Normal 2.2-4.[address] [facility] Comment on above: Order Comment: URINE UTOOrder Date: 02/07/25Order Info: 07-1 - CMP Performed By: #### L 100.0100, L500.4050 ####[facility] [address] [place], [address] Glucose [Mass/Vol] 254 mg/dL High 70-99 [facility] Comment on above: Order Comment: URINE UTOOrder Date: 02/07/25Order Info: 07-1 - CMP Performed By: #### L 100.0100, L500.4050 ####[facility] [address] [place], [address] Potassium [Moles/Vol] 5.1 mmol/L Normal 3.3-5.1 [facility] Comment on above: Order Comment: URINE UTOOrder Date: 02/07/25Order Info: 0786-1 - CMP Performed By: #### L 100.0100, L500.4050 ####[facility] [address] [place], [address] Sodium [Moles/Vol] 136 mmol/L Normal 133-145 [facility] Comment on above: Order Comment: URINE UTOOrder Date: 02/07/25Order Info: 0786-1 - CMP Performed By: #### L 100.0100, L500.4050 ####[facility] [address] [place], [address] T PROT 6.5 g/dL Normal 5.9-8.4 [facility] Comment on above: Order Comment: URINE UTOOrder Date: 02/07/25Order Info: 0786-1 - CMP Performed By: #### L 100.0100, L500.4050 ####[facility] [address] [place], [place], [address] Urea nitrogen [Mass/Vol] 24 mg/dL High 4-19 [facility] Comment on above: Order Comment: URINE UTOOrder Date: 02/07/25Order Info: 0786-1 - CMP Performed By: #### L 100.0100, L500.4050 ####[facility] [address] [place], [address] Eosinophil percentageOrdered By: Ramone Smiley on 02-07-2025 Eosinophils/100 WBC (Bld) 0.0 % 0-5 [facility] Erythrocyte distribution wid th ratioOrdered By: Ramone Smiley on 02-07-2025 Erythrocyte distribution width (RBC) [Ratio] 15.7 % High 11.6-14.6 [facility] Erythrocyte distribution wid th standard deviationOrdered By: Ramone Smiley on 02-07-2025 Erythrocyte distribution width (RBC) [Ratio] 51.8 fl High 35.1-43.9 [facility] Glomerular filtration rate ( GFR) estimation/1.73 sq m using serum, plasma, or whole bOrdered By: Ramone Smiley on 02-07-2025 GFR/1.73 sq M.predicted among non-blacks MDRD (S/P/Bld) [Vol rate/Area] 39 mL/min/{1.73_m2} Low >60 [facility] Hematocrit Auto (Bld) [Volum e fraction]Ordered By: Ramone Smiley on 02-07-2025 Hematocrit (Bld) [Volume fraction] 36.8 % Low 37-47 [facility] Hemoglobin measurementOrdere d By: Ramone Smiley on 02-07-2025 Hemoglobin (Bld) [Mass/Vol] 11.4 g/dL Low 12.0-15.0 [facility] Immature granulocytes/100 WB C Auto (Bld)Ordered By: Ramone Smiley on 02-07-2025 Immature granulocytes/100 WBC (Bld) 0.400 % 0.0-0.9 [facility] MCV (mean corpuscular volume ) determinationOrdered By: Ramone Smiley on 02-07-2025 MCV (RBC) [Entitic vol] 90.2 fL 81-99 [facility] Mean corpuscular hemoglobin (MCH) determinationOrdered By: Ramone Smiley on 02-07-2025 MCH (RBC) [Entitic mass] 27.9 pg 27.0-32.0 [facility] Monocyte percentageOrdered B y: Ramone Smiley on 02-07-2025 Monocytes/100 WBC (Bld) 5.2 % 0-10 [facility] Neutrophil percentageOrdered By: Ramone Smiley on 02-07-2025 Neutrophils/100 WBC (Bld) 87.0 % High 47-70 [facility] No Panel InformationOrdered By: Ramone Smiley on 02-07-2025 29 U/L <32 [facility] Platelet countOrdered By: Richar Smiley on 02-07-2025 Platelets (Bld) [#/Vol] 247 10*3/uL 150-450 [facility] Potassium measurement (mass/ volume)Ordered By: Ramone Smiley on 02-07-2025 Potassium (Unsp spec) [Mass/Vol] 5.1 mmol/L 3.3-5.1 [facility] RBC Auto (Bld) [#/Vol]Ordere d By: Ramone Smiley on 02-07-2025 RBC (Bld) [#/Vol] 4.08 10*6/uL Low 4.2-5.4 [facility] Serum creatinine measurement (mass/volume)Ordered By: Ramone Smiley on 02-07-2025 Creatinine [Mass/Vol] 1.37 mg/dL High 0.70-1.20 [facility] Serum globulin measurementOr dered By: Ramone Smiley on 02-07-2025 Globulin (S) [Mass/Vol] 3.2 g/dL 2.2-4.[address] [facility] Serum glucose measurement (m ass/volume)Ordered By: Ramone Smiley on 02-07-2025 Glucose [Mass/Vol] 254 mg/dL High 70-99 [facility] Serum or plasma alanine kelley otransferase (ALT) measurementOrdered By: Ramone Smiley on 02-07-2025 ALT [Catalytic activity/Vol] 20 U/L <35 [facility] Serum or plasma albumin melanie urement (mass/volume)Ordered By: Ramone Smiley on 02-07-2025 Albumin [Mass/Vol] 3.3 g/dL Low 3.4-4.8 [facility] Serum or plasma albumin/glob ulin mass ratioOrdered By: Ramone Smiley on 02-07-2025 Albumin/Globulin [Mass ratio] 1.0 {ratio} 0.9-2.4 [facility] Serum or plasma alkaline lissa sphatase measurementOrdered By: Ramone Smiley on 02-07-2025 ALP [Catalytic activity/Vol] 86 U/L 35-104 [facility] Serum or plasma calcium melanie urement (mass/volume)Ordered By: Ramone Smiley on 02-07-2025 Calcium [Mass/Vol] 10.2 mg/dL 7.6-11.0 [facility] Serum or plasma urea nitroge n measurement (mass/volume)Ordered By: Ramone Smiley on 02-07-2025 Urea nitrogen [Mass/Vol] 24 mg/dL High 4-19 [facility] Sodium levelOrdered By: Ramone Smiley on 02-07-2025 Sodium [Moles/Vol] 136 mmol/L 133-145 [facility] Total proteinOrdered By: Lilliam Smiley on 02-07-2025 Protein [Mass/Vol] 6.5 g/dL 5.9-8.4 [facility] White blood cell (WBC) count Ordered By: Ramone Smiley on 02-07-2025 WBC (Bld) [#/Vol] 11.5 10*3/uL High 4.4-11.0 [facility] Bedside Glucoseon 02-06-2025 FINGERSTICK GLU 190 mg/dL High 74-106 [facility] Comment on above: Result Comment: KATARINA GEMENT OF PATIENT CARE PER NURSING PROTOCOL Performed By: #### L 501.080 ####[facility] [address] [place], [address] FINGERSTICK GLU 237 mg/dL High 74-106 [facility] Comment on above: Result Comment: KATARINA GEMENT OF PATIENT CARE PER NURSING PROTOCOL Performed By: #### L 501.080 ####[facility] [address] [place], [address] Discharge Instructionon 06-0 Discharge Instruction Normal [facility] Electrocardiogram reportOrde red By: Marcelina Soto on 02-06-2025 EKG study [facility] Work Phone: [facility] deOrdered By: Lucio Borden on 02-06-2025 Glucose [Mass/Vol] 190 mg/dL High 74-106 [facility] Anion gap in Serum or Plasma Ordered By: Lucio Borden on 02-05-2025 Anion gap [Moles/Vol] 15 mmol/L 5-15 [facility] BUN/creatinine ratioOrdered By: Lucio Borden on 02-05-2025 Urea nitrogen/Creatinine [Mass ratio] 16.1 mg/mg - [facility] Basic Metabolic Profile (BMP )on 02-05-2025 BUN/CRE 16.1 RATIO Normal 06-19 [facility] Comment on above: Performed By: #### L 500.2500 ####[facility] [address] [place], [address] Calcium [Mass/Vol] 9.1 mg/dL Normal 7.6-11.0 [facility] Comment on above: Performed By: #### L 500.2500 ####[facility] [address] [place], [address] Chloride [Moles/Vol] 94 mmol/L Low 98-108 [facility] Comment on above: Performed By: #### L 500.2500 ####[facility] [address] [place], [address] CO2 [Moles/Vol] 26.4 mmol/L Normal 21.0-32.0 [facility] Comment on above: Performed By: #### L 500.2500 ####[facility] [address] [place], [address] Creatinine [Mass/Vol] 1.06 mg/dL Normal 0.70-1.20 [facility] Comment on above: Performed By: #### L 500.2500 ####[facility] [address] [place], [address] ECRCL 39.38 ml/min Low 50-250 [facility] Comment on above: Performed By: #### L 500.2500 ####[facility] [address] [place], [address] GAP 15 Normal 5-15 [facility] Comment on above: Performed By: #### L 500.2500 ####[facility] [address] [place], [address] GFR/1.73 sq M.predicted among non-blacks MDRD (S/P/Bld) [Vol rate/Area] 53 mL/min/{1.73_m2} Low >60 [facility] Comment on above: Result Comment: mL/m in/1.73m2 CKD-EPI Creatinine Equation (2020) Performed By: #### L 500.2500 ####[facility] [address] [place], [address] Glucose [Mass/Vol] 272 mg/dL High 70-99 [facility] Comment on above: Performed By: #### L 500.2500 ####[facility] [address] [place], [address] Potassium [Moles/Vol] 4.2 mmol/L Normal 3.3-5.1 [facility] Comment on above: Performed By: #### L 500.2500 ####[facility] [address] [place], [address] Sodium [Moles/Vol] 135 mmol/L Normal 133-145 [facility] Comment on above: Performed By: #### L 500.2500 ####[facility] [address] [place], [address] Urea nitrogen [Mass/Vol] 17 mg/dL Normal 4-19 [facility] Comment on above: Performed By: #### L 500.2500 ####[facility] [address] [place], [address] Bedside Glucoseon 02-05-2025 FINGERSTICK GLU 156 mg/dL High 74-106 [facility] Comment on above: Result Comment: KATARINA GEMENT OF PATIENT CARE PER NURSING PROTOCOL Performed By: #### L 501.080 ####[facility] [address] [place], [address] FINGERSTICK GLU 128 mg/dL High -106 [facility] Comment on above: Result Comment: KATARINA GEMENT OF PATIENT CARE PER NURSING PROTOCOL Performed By: #### L 501.080 ####[facility] [address] [place], [address] FINGERSTICK GLU 296 mg/dL High 74-106 [facility] Comment on above: Result Comment: KATARINA GEMENT OF PATIENT CARE PER NURSING PROTOCOL Performed By: #### L 501.080 ####[facility] [address] [place], [address] FINGERSTICK GLU 238 mg/dL High -106 [facility] Comment on above: Result Comment: KATARINA GEMENT OF PATIENT CARE PER NURSING PROTOCOL Performed By: #### L 501.080 ####[facility] [address] [place], [address] Carbon dioxide, total [Moles /volume] in Central venous bloodOrdered By: Lucio Borden on 02-05-2025 CO2 [Moles/Vol] 26.4 mmol/L 21.0-32.0 [facility] Chloride assayOrdered By: Chen Borden on 02-05-2025 Chloride [Moles/Vol] 94 mmol/L Low 98-108 [facility] Glomerular filtration rate ( GFR) estimation/1.73 sq m using serum, plasma, or whole bOrdered By: Lucio Borden on 02-05-2025 GFR/1.73 sq M.predicted among non-blacks MDRD (S/P/Bld) [Vol rate/Area] 53 mL/min/{1.73_m2} Low >60 [facility] Potassium measurement (mass/ volume)Ordered By: Lucio Borden on 02-05-2025 Potassium (Unsp spec) [Mass/Vol] 4.2 mmol/L 3.3-5.1 [facility] Serum creatinine measurement (mass/volume)Ordered By: Lucio Borden on 02-05-2025 Creatinine [Mass/Vol] 1.06 mg/dL 0.70-1.20 [facility] Serum glucose measurement (m ass/volume)Ordered By: Lucio Borden on 02-05-2025 Glucose [Mass/Vol] 272 mg/dL High 70-99 [facility] Serum or plasma calcium melanie urement (mass/volume)Ordered By: Lucio Borden on 02-05-2025 Calcium [Mass/Vol] 9.1 mg/dL 7.6-11.0 [facility] Serum or plasma urea nitroge n measurement (mass/volume)Ordered By: Lucio Borden on 02-05-2025 Urea nitrogen [Mass/Vol] 17 mg/dL 4-19 [facility] Sodium levelOrdered By: uLcio Borden on 02-05-2025 Sodium [Moles/Vol] 135 mmol/L 133-145 [facility] 12 Lead EKGon 02-04-2025 12 Lead EKG Normal [facility] Absolute lymphocyte countOrd ered By: Aj Holley on 02-04-2025 Lymphocytes Auto (Unsp spec) [#/Vol] 1.75 10*3/uL 0.83-4.51 [facility] Anion gap in Serum or Plasma Ordered By: Aj Holley on 02-04-2025 Anion gap [Moles/Vol] 16 mmol/L High 5-15 [facility] Automated lymphocyte count a s percentage of total leukocytesOrdered By: Aj Holley on 02-04-2025 Lymphocytes/100 WBC Auto (Unsp spec) 15.7 % Low 19-41 [facility] BUN/creatinine ratioOrdered By: Aj Holley on 02-04-2025 Urea nitrogen/Creatinine [Mass ratio] 13.2 mg/mg 10-20 [facility] Basic Metabolic Profile (BMP )on 02-04-2025 BUN/CRE 13.2 RATIO Normal - [facility] Comment on above: Performed By: #### L 500.2500, L100.0100 ####[facility] [address] [place], [address] Calcium [Mass/Vol] 8.9 mg/dL Normal 7.6-11.0 [facility] Comment on above: Performed By: #### L 500.2500, L100.0100 ####[facility] [address] [place], [address] Chloride [Moles/Vol] 95 mmol/L Low 98-108 [facility] Comment on above: Performed By: #### L 500.2500, L100.0100 ####[facility] [address] [place], [address] CO2 [Moles/Vol] 25.9 mmol/L Normal 21.0-32.0 [facility] Comment on above: Performed By: #### L 500.2500, L100.0100 ####[facility] [address] [place], [address] Creatinine [Mass/Vol] 1.14 mg/dL Normal 0.70-1.20 [facility] Comment on above: Performed By: #### L 500.2500, L100.0100 ####[facility] [address] [place], [address] ECRCL 37.95 ml/min Low 50-250 [facility] Comment on above: Performed By: #### L 500.2500, L100.0100 ####[facility] [address] [place], [address] GAP 16 High 5-15 [facility] Comment on above: Performed By: #### L 500.2500, L100.0100 ####[facility] [address] [place], [address] GFR/1.73 sq M.predicted among non-blacks MDRD (S/P/Bld) [Vol rate/Area] 48 mL/min/{1.73_m2} Low >60 [facility] Comment on above: Result Comment: mL/m in/1.73m2 CKD-EPI Creatinine Equation (2020) Performed By: #### L 500.2500, L100.0100 ####[facility] [address] [place], [address] Glucose [Mass/Vol] 132 mg/dL High 70-99 [facility] Comment on above: Performed By: #### L 500.2500, L100.0100 ####[facility] [address] [place], [address] Potassium [Moles/Vol] 3.9 mmol/L Normal 3.3-5.1 [facility] Comment on above: Result Comment: Hemo lysis present, Results??could be affected.?? Performed By: #### L 500.2500, L100.0100 ####[facility] [address] [place], [address] Sodium [Moles/Vol] 137 mmol/L Normal 133-145 [facility] Comment on above: Performed By: #### L 500.2500, L100.0100 ####[facility] [address] [place], [address] Urea nitrogen [Mass/Vol] 15 mg/dL Normal 4-19 [facility] Comment on above: Performed By: #### L 500.2500, L100.0100 ####[facility] [address] [place], [address] Basophil percentageOrdered B y: Aj Holley on 02-04-2025 Basophils/100 WBC (Bld) 0.2 % 0-1 [facility] Bedside Glucoseon 02-04-2025 FINGERSTICK GLU 179 mg/dL High 74-106 [facility] Comment on above: Result Comment: KATARINA GEMENT OF PATIENT CARE PER NURSING PROTOCOL Performed By: #### L 501.080 ####[facility] [address] [place], [address] FINGERSTICK GLU 240 mg/dL High 74-106 [facility] Comment on above: Result Comment: KATARINA GEMENT OF PATIENT CARE PER NURSING PROTOCOL Performed By: #### L 501.080 ####[facility] [address] [place], [address] CBC W/Diff, Automatedon Absolute Lymph 1.75 X10 3/uL Normal 0.83-4.51 [facility] Comment on above: Performed By: #### L 500.2500, L100.0100 ####[facility] [address] [place], [address] Absolute Neut 8.4 X10 3/uL High 2.0-7.7 [facility] Comment on above: Performed By: #### L 500.2500, L100.0100 ####[facility] [address] [place], [address] Basophils/100 WBC (Bld) 0.2 % Normal 0-1 [facility] Comment on above: Performed By: #### L 500.2500, L100.0100 ####[facility] [address] [place], [address] Eosinophils/100 WBC (Bld) 1.7 % Normal 0-5 [facility] Comment on above: Performed By: #### L 500.2500, L100.0100 ####[facility] [address] [place], [address] Erythrocyte distribution width (RBC) [Ratio] 15.9 % High 11.6-14.6 [facility] Comment on above: Performed By: #### L 500.2500, L100.0100 ####[facility] [address] [place], [address] Hematocrit (Bld) [Volume fraction] 34.1 % Low 37-47 [facility] Comment on above: Performed By: #### L 500.2500, L100.0100 ####[facility] [address] [place], [address] Hemoglobin (Bld) [Mass/Vol] 10.7 g/dL Low 12.0-15.0 [facility] Comment on above: Performed By: #### L 500.2500, L100.0100 ####[facility] [address] [place], [address] IG% 0.400 Normal 0.0-0.9 [facility] Comment on above: Result Comment: IG% - Immature Granulocytes (promyelocytes, myelocytes andmetamyelocytes) > 1% indicates that a LEFT SHIFT is Present. Performed By: #### L 500.2500, L100.0100 ####[facility] [address] [place], [address] Lymphocytes/100 WBC (Bld) 15.7 % Low 19-41 [facility] Comment on above: Performed By: #### L 500.2500, L100.0100 ####[facility] [address] [place], [address] MCH (RBC) [Entitic mass] 27.9 pg Normal 27.0-32.0 [facility] Comment on above: Performed By: #### L 500.2500, L100.0100 ####[facility] [address] [place], [address] MCHC (RBC) [Mass/Vol] 31.4 g/dL Low 32-36 [facility] Comment on above: Performed By: #### L 500.2500, L100.0100 ####[facility] [address] [place], [address] MCV (RBC) [Entitic vol] 88.8 fL Normal 81-99 [facility] Comment on above: Performed By: #### L 500.2500, L100.0100 ####[facility] [address] [place], [address] Monocytes/100 WBC (Bld) 6.6 % Normal 0-[address] [facility] Comment on above: Performed By: #### L 500.2500, L100.0100 ####[facility] [address] [place], [address] Neutrophils/100 WBC (Bld) 75.4 % High 47-70 [facility] Comment on above: Performed By: #### L 500.2500, L100.0100 ####[facility] [address] [place], [address] Nucleated RBC (Bld) [#/Vol] 0 10*3/uL Normal 0-5 [facility] Comment on above: Performed By: #### L 500.2500, L100.0100 ####[facility] [address] [place], [address] Platelet mean volume (Bld) [Entitic vol] 11.3 fL Normal 6.2-12.0 [facility] Comment on above: Performed By: #### L 500.2500, L100.0100 ####[facility] [address] [place], [address] Platelets (Bld) [#/Vol] 185 10*3/uL Normal 150-450 [facility] Comment on above: Performed By: #### L 500.2500, L100.0100 ####[facility] [address] [place], [address] RBC (Bld) [#/Vol] 3.84 10*6/uL Low 4.2-5.4 [facility] Comment on above: Performed By: #### L 500.2500, L100.0100 ####[facility] [address] [place], [address] RDW SD 51.4 fl High 35.1-43.9 [facility] Comment on above: Performed By: #### L 500.2500, L100.0100 ####[facility] [address] [place], [address] WBC (Bld) [#/Vol] 11.2 10*3/uL High 4.4-11.0 [facility] Comment on above: Performed By: #### L 500.2500, L100.0100 ####[facility] [address] [place], [address] CTA Chest W/WO Contraston CTA Chest W/WO Contrast Normal [facility] Carbon dioxide, total [Moles /volume] in Central venous bloodOrdered By: Aj Holley on 02-04-2025 CO2 [Moles/Vol] 25.9 mmol/L 21.0-32.0 [facility] Chest PA and Lateralon 02-04 Chest PA and Lateral Normal [facility] Chloride assayOrdered By: Dahlia Holley on 02-04-2025 Chloride [Moles/Vol] 95 mmol/L Low 98-108 [facility] Emergency Department Summary on 02-04-2025 Emergency Department Summary Normal [facility] Eosinophil percentageOrdered By: Aj Holley on 02-04-2025 Eosinophils/100 WBC (Bld) 1.7 % 0-5 [facility] Erythrocyte distribution wid th ratioOrdered By: Aj Holley on 02-04-2025 Erythrocyte distribution width (RBC) [Ratio] 15.9 % High 11.6-14.6 [facility] Erythrocyte distribution wid th standard deviationOrdered By: Aj Holley on 02-04-2025 Erythrocyte distribution width (RBC) [Ratio] 51.4 fl High 35.1-43.9 [facility] Glomerular filtration rate ( GFR) estimation/1.73 sq m using serum, plasma, or whole bOrdered By: Aj Holley on 02-04-2025 GFR/1.73 sq M.predicted among non-blacks MDRD (S/P/Bld) [Vol rate/Area] 48 mL/min/{1.73_m2} Low >60 [facility] H AND P Exam - Hospitaliston 02-04-2025 H&P Exam - Hospitalist Normal [facility] Hematocrit Auto (Bld) [Volum e fraction]Ordered By: Aj Holley on 02-04-2025 Hematocrit (Bld) [Volume fraction] 34.1 % Low 37-47 [facility] Hemoglobin measurementOrdere d By: Aj Holley on 02-04-2025 Hemoglobin (Bld) [Mass/Vol] 10.7 g/dL Low 12.0-15.0 [facility] Immature granulocytes/100 WB C Auto (Bld)Ordered By: Aj Holley on 02-04-2025 Immature granulocytes/100 WBC (Bld) 0.400 % 0.0-0.9 [facility] L499.0042on 02-04-2025 Trop T High Sen 133 ng/L Invalid Interpretation Code <=14 [facility] Comment on above: Result Comment: Crit ical Result(s) Called at 0915: by: SHARONA EASLEY. ??Results read back by same. Performed By: #### L 499.0042 ####[facility] [address] [place], [place], [address] L499.0043on 02-04-2025 Trop T High Sen 139 ng/L Invalid Interpretation Code <=14 [facility] Comment on above: Result Comment: Crit ical Result(s) Called at 1125: by: Michael Arnett.??Results read back by same. Performed By: #### L 499.0043 ####[facility] [address] [place], [place], [address] L501.4021on 02-04-2025 Trop T High Sen 139 ng/L Invalid Interpretation Code <=14 [facility] Comment on above: Result Comment: Candie ical Result(s) Called at 0809: by: SHARONA GO.??Results read back by same. Performed By: #### L 501.4021, L503.7505 ####[facility] [address] [place], [place], [address] L503.7505on 02-04-2025 Natriuretic peptide B (Bld) [Mass/Vol] 6247 pg/mL High <=1800 [facility] Comment on above: Result Comment: Hear t Failure Unlikely: < 300 pg/mLHeart Failure Likely< 50 Years: > 450 pg/mL50-75 Years: > 900 pg/mL>75 Years: > 1800 pg/mL Performed By: #### L 501.4021, L503.7505 ####[facility] [address] [place], [place], [address] MCV (mean corpuscular volume ) determinationOrdered By: Aj Holley on 02-04-2025 MCV (RBC) [Entitic vol] 88.8 fL 81-99 [facility] Mean corpuscular hemoglobin (MCH) determinationOrdered By: Aj Holley on 02-04-2025 MCH (RBC) [Entitic mass] 27.9 pg 27.0-32.0 [facility] Monocyte percentageOrdered B y: Aj Holley on 02-04-2025 Monocytes/100 WBC (Bld) 6.6 % 0-10 [facility] Natriuretic peptide.B prohor hayley N-Terminal [Mass/volume] in Serum or PlasmaOrdered By: Aj Holley on 02-04-2025 Natriuretic peptide.B prohormone N-Terminal [Mass/Vol] 6247 pg/mL High <1800 [facility] Neutrophil percentageOrdered By: Aj Holley on 02-04-2025 Neutrophils/100 WBC (Bld) 75.4 % High 47-70 [facility] Platelet countOrdered By: Dahlia Holley on 02-04-2025 Platelets (Bld) [#/Vol] 185 10*3/uL 150-450 [facility] Potassium measurement (mass/ volume)Ordered By: Aj Holley on 02-04-2025 Potassium (Unsp spec) [Mass/Vol] 3.9 mmol/L 3.3-5.1 [facility] RBC Auto (Bld) [#/Vol]Ordere d By: Aj Holley on 02-04-2025 RBC (Bld) [#/Vol] 3.84 10*6/uL Low 4.2-5.4 [facility] Serum creatinine measurement (mass/volume)Ordered By: Aj Holley on 02-04-2025 Creatinine [Mass/Vol] 1.14 mg/dL 0.70-1.20 [facility] Serum glucose measurement (m ass/volume)Ordered By: Aj Holely on 02-04-2025 Glucose [Mass/Vol] 132 mg/dL High 70-99 [facility] Serum or plasma calcium melanie urement (mass/volume)Ordered By: Aj Holley on 02-04-2025 Calcium [Mass/Vol] 8.9 mg/dL 7.6-11.0 [facility] Serum or plasma urea nitroge n measurement (mass/volume)Ordered By: Aj Holley on 02-04-2025 Urea nitrogen [Mass/Vol] 15 mg/dL 4-19 [facility] Sodium levelOrdered By: Reynaldo Holley on 02-04-2025 Sodium [Moles/Vol] 137 mmol/L 133-145 [facility] Troponin T.cardiac [Mass/vol ume] in Serum or Plasma by High sensitivity methodOrdered By: Aj Holley on 02-04-2025 Troponin T.cardiac High sensitivity method [Mass/Vol] 139 ng/L High <14 [facility] Troponin T.cardiac High sensitivity method [Mass/Vol] 133 ng/L High <14 [facility] Troponin T.cardiac High sensitivity method [Mass/Vol] 139 ng/L High <14 [facility] White blood cell (WBC) count Ordered By: Aj Holley on 02-04-2025 WBC (Bld) [#/Vol] 11.2 10*3/uL High 4.4-11.0 [facility] Cardiology Visit Reporton Cardiology Visit Report Normal [facility] Basic Metabolic Profile (BMP )on 01-30-2025 BUN Normal 4-19 [facility] Comment on above: Result Comment: Canc elled via OM: Order cancelled - Patient discharged Performed By: #### L 500.2500, L100.0100 ####[facility] [address] [place], [address] BUN/CRE Normal 10-20 [facility] Comment on above: Result Comment: Canc elled via OM: Order cancelled - Patient discharged Performed By: #### L 500.2500, L100.0100 ####[facility] [address] [place], [address] Calcium Normal 7.6-11.0 [facility] Comment on above: Result Comment: Canc elled via OM: Order cancelled - Patient discharged Performed By: #### L 500.2500, L100.0100 ####[facility] [address] [place], [address] CL Normal 98-108 [facility] Comment on above: Result Comment: Canc elled via OM: Order cancelled - Patient discharged Performed By: #### L 500.2500, L100.0100 ####[facility] [address] [place], [address] CO2 Normal 21.0-32.0 [facility] Comment on above: Result Comment: Canc elled via OM: Order cancelled - Patient discharged Performed By: #### L 500.2500, L100.0100 ####[facility] [address] [place], [address] CREAT,SERUM Normal 0.70-1.20 [facility] Comment on above: Result Comment: Canc elled via OM: Order cancelled - Patient discharged Performed By: #### L 500.2500, L100.0100 ####[facility] [address] [place], [address] eGFR Normal >60 [facility] Comment on above: Result Comment: Canc elled via OM: Order cancelled - Patient discharged Performed By: #### L 500.2500, L100.0100 ####[facility] [address] [place], [address] GAP Normal 5-15 [facility] Comment on above: Result Comment: Canc elled via OM: Order cancelled - Patient discharged Performed By: #### L 500.2500, L100.0100 ####[facility] [address] [place], [address] GLU Normal 70-99 [facility] Comment on above: Result Comment: Canc elled via OM: Order cancelled - Patient discharged Performed By: #### L 500.2500, L100.0100 ####[facility] [address] [place], [address] Potassium Normal 3.3-5.1 [facility] Comment on above: Result Comment: Canc elled via OM: Order cancelled - Patient discharged Performed By: #### L 500.2500, L100.0100 ####[facility] [address] [place], [address] Basic Metabolic Profile (BMP) Normal 133-145 [facility] Comment on above: Result Comment: Canc elled via OM: Order cancelled - Patient discharged Performed By: #### L 500.2500, L100.0100 ####[facility] [address] [place], [address] CBC W/Diff, Automatedon 06-0 2-2024 Absolute Neut Normal 2.0-7.7 [facility] Comment on above: Result Comment: Canc elled via OM: Order cancelled - Patient discharged Performed By: #### L 500.2500, L100.0100 ####[facility] [address] [place], [address] HCT Normal 37-47 [facility] Comment on above: Result Comment: Canc elled via OM: Order cancelled - Patient discharged Performed By: #### L 500.2500, L100.0100 ####[facility] [address] [place], [address] HGB Normal 12.0-15.0 [facility] Comment on above: Result Comment: Canc elled via OM: Order cancelled - Patient discharged Performed By: #### L 500.2500, L100.0100 ####[facility] [address] [place], [address] MCH Normal 27.0-32.0 [facility] Comment on above: Result Comment: Canc elled via OM: Order cancelled - Patient discharged Performed By: #### L 500.2500, L100.0100 ####[facility] [address] [place], [address] MCHC Normal 32-36 [facility] Comment on above: Result Comment: Canc elled via OM: Order cancelled - Patient discharged Performed By: #### L 500.2500, L100.0100 ####[facility] [address] [place], [address] MCV Normal 81-99 [facility] Comment on above: Result Comment: Canc elled via OM: Order cancelled - Patient discharged Performed By: #### L 500.2500, L100.0100 ####[facility] [address] [place], [address] NEUT% Normal 47-70 [facility] Comment on above: Result Comment: Canc elled via OM: Order cancelled - Patient discharged Performed By: #### L 500.2500, L100.0100 ####[facility] [address] [place], [address] PLT Normal 150-450 [facility] Comment on above: Result Comment: Canc elled via OM: Order cancelled - Patient discharged Performed By: #### L 500.2500, L100.0100 ####[facility] [address] [place], [address] RBC Normal 4.2-5.4 [facility] Comment on above: Result Comment: Canc elled via OM: Order cancelled - Patient discharged Performed By: #### L 500.2500, L100.0100 ####[facility] [address] [place], [address] RDW CV Normal 11.6-14.6 [facility] Comment on above: Result Comment: Canc elled via OM: Order cancelled - Patient discharged Performed By: #### L 500.2500, L100.0100 ####[facility] [address] [place], [address] RDW SD Normal 35.1-43.9 [facility] Comment on above: Result Comment: Canc elled via OM: Order cancelled - Patient discharged Performed By: #### L 500.2500, L100.0100 ####[facility] [address] [place], [address] WBC Normal 4.4-11.0 [facility] Comment on above: Result Comment: Canc elled via OM: Order cancelled - Patient discharged Performed By: #### L 500.2500, L100.0100 ####[facility] [address] [place], [address] Basic Metabolic Profile (BMP )on 01-29-2025 BUN Normal 4-19 [facility] Comment on above: Result Comment: Canc elled via OM: Order cancelled - Patient discharged Performed By: #### L 100.0100, L500.2500 ####[facility] [address] [place], [address] BUN/CRE Normal 10-20 [facility] Comment on above: Result Comment: Canc elled via OM: Order cancelled - Patient discharged Performed By: #### L 100.0100, L500.2500 ####[facility] [address] [place], [address] Calcium Normal 7.6-11.0 [facility] Comment on above: Result Comment: Canc elled via OM: Order cancelled - Patient discharged Performed By: #### L 100.0100, L500.2500 ####[facility] [address] [place], [address] CL Normal 98-108 [facility] Comment on above: Result Comment: Canc elled via OM: Order cancelled - Patient discharged Performed By: #### L 100.0100, L500.2500 ####[facility] [address] [place], [address] CO2 Normal 21.0-32.0 [facility] Comment on above: Result Comment: Canc elled via OM: Order cancelled - Patient discharged Performed By: #### L 100.0100, L500.2500 ####[facility] [address] [place], [address] CREAT,SERUM Normal 0.70-1.20 [facility] Comment on above: Result Comment: Canc elled via OM: Order cancelled - Patient discharged Performed By: #### L 100.0100, L500.2500 ####[facility] [address] [place], [address] eGFR Normal >60 [facility] Comment on above: Result Comment: Canc elled via OM: Order cancelled - Patient discharged Performed By: #### L 100.0100, L500.2500 ####[facility] [address] [place], [address] GAP Normal 5-15 [facility] Comment on above: Result Comment: Canc elled via OM: Order cancelled - Patient discharged Performed By: #### L 100.0100, L500.2500 ####[facility] [address] [place], [address] GLU Normal 70-99 [facility] Comment on above: Result Comment: Canc elled via OM: Order cancelled - Patient discharged Performed By: #### L 100.0100, L500.2500 ####[facility] [address] [place], [address] Potassium Normal 3.3-5.1 [facility] Comment on above: Result Comment: Canc elled via OM: Order cancelled - Patient discharged Performed By: #### L 100.0100, L500.2500 ####[facility] [address] [place], [address] Basic Metabolic Profile (BMP) Normal 133-145 [facility] Comment on above: Result Comment: Canc elled via OM: Order cancelled - Patient discharged Performed By: #### L 100.0100, L500.2500 ####[facility] [address] [place], [address] CBC W/Diff, Automatedon 06-0 Absolute Neut Normal 2.0-7.7 [facility] Comment on above: Result Comment: Canc elled via OM: Order cancelled - Patient discharged Performed By: #### L 100.0100, L500.2500 ####[facility] [address] [place], [address] HCT Normal 37-47 [facility] Comment on above: Result Comment: Canc elled via OM: Order cancelled - Patient discharged Performed By: #### L 100.0100, L500.2500 ####[facility] [address] [place], [address] HGB Normal 12.0-15.0 [facility] Comment on above: Result Comment: Canc elled via OM: Order cancelled - Patient discharged Performed By: #### L 100.0100, L500.2500 ####[facility] [address] [place], [address] MCH Normal 27.0-32.0 [facility] Comment on above: Result Comment: Canc elled via OM: Order cancelled - Patient discharged Performed By: #### L 100.0100, L500.2500 ####[facility] [address] [place], [address] MCHC Normal 32-36 [facility] Comment on above: Result Comment: Canc elled via OM: Order cancelled - Patient discharged Performed By: #### L 100.0100, L500.2500 ####[facility] [address] [place], [address] MCV Normal 81-99 [facility] Comment on above: Result Comment: Canc elled via OM: Order cancelled - Patient discharged Performed By: #### L 100.0100, L500.2500 ####[facility] [address] [place], [address] NEUT% Normal 47-70 [facility] Comment on above: Result Comment: Canc elled via OM: Order cancelled - Patient discharged Performed By: #### L 100.0100, L500.2500 ####[facility] [address] [place], [address] PLT Normal 150-450 [facility] Comment on above: Result Comment: Canc elled via OM: Order cancelled - Patient discharged Performed By: #### L 100.0100, L500.2500 ####[facility] [address] [place], [address] RBC Normal 4.2-5.4 [facility] Comment on above: Result Comment: Canc elled via OM: Order cancelled - Patient discharged Performed By: #### L 100.0100, L500.2500 ####[facility] [address] [place], [address] RDW CV Normal 11.6-14.6 [facility] [facility] Comment on above: Result Comment: Canc elled via OM: Order cancelled - Patient discharged Performed By: #### L 100.0100, L500.2500 ####[facility] [address] [place], [address] RDW SD Normal 35.1-43.9 [facility] Comment on above: Result Comment: Canc elled via OM: Order cancelled - Patient discharged Performed By: #### L 100.0100, L500.2500 ####[facility] [address] [place], [address] WBC Normal 4.4-11.0 [facility] Comment on above: Result Comment: Canc elled via OM: Order cancelled - Patient discharged Performed By: #### L 100.0100, L500.2500 ####[facility] [address] [place], [address] Basic Metabolic Profile (BMP )on 01-28-2025 BUN Normal 4-19 [facility] Comment on above: Result Comment: Canc elled via OM: Order cancelled - Patient discharged Performed By: #### L 500.2500, L100.0100 ####[facility] [address] [place], [address] BUN/CRE Normal 10-20 [facility] Comment on above: Result Comment: Canc elled via OM: Order cancelled - Patient discharged Performed By: #### L 500.2500, L100.0100 ####[facility] [address] [place], [address] Calcium Normal 7.6-11.0 [facility] Comment on above: Result Comment: Canc elled via OM: Order cancelled - Patient discharged Performed By: #### L 500.2500, L100.0100 ####[facility] [address] [place], [address] CL Normal 98-108 [facility] Comment on above: Result Comment: Canc elled via OM: Order cancelled - Patient discharged Performed By: #### L 500.2500, L100.0100 ####[facility] [address] [place], [address] CO2 Normal 21.0-32.0 [facility] Comment on above: Result Comment: Canc elled via OM: Order cancelled - Patient discharged Performed By: #### L 500.2500, L100.0100 ####[facility] [address] [place], [address] CREAT,SERUM Normal 0.70-1.20 [facility] Comment on above: Result Comment: Canc elled via OM: Order cancelled - Patient discharged Performed By: #### L 500.2500, L100.0100 ####[facility] [address] [place], [address] eGFR Normal >60 [facility] Comment on above: Result Comment: Canc elled via OM: Order cancelled - Patient discharged Performed By: #### L 500.2500, L100.0100 ####[facility] [address] [place], [address] GAP Normal 5-15 [facility] Comment on above: Result Comment: Canc elled via OM: Order cancelled - Patient discharged Performed By: #### L 500.2500, L100.0100 ####[facility] [address] [place], [address] GLU Normal 70-99 [facility] Comment on above: Result Comment: Canc elled via OM: Order cancelled - Patient discharged Performed By: #### L 500.2500, L100.0100 ####[facility] [address] [place], [address] Potassium Normal 3.3-5.1 [facility] Comment on above: Result Comment: Canc elled via OM: Order cancelled - Patient discharged Performed By: #### L 500.2500, L100.0100 ####[facility] [address] [place], [address] Basic Metabolic Profile (BMP) Normal 133-145 [facility] Comment on above: Result Comment: Canc elled via OM: Order cancelled - Patient discharged Performed By: #### L 500.2500, L100.0100 ####[facility] [address] [place], [address] CBC W/Diff, Automatedon 05-3 Absolute Neut Normal 2.0-7.7 [facility] Comment on above: Result Comment: Canc elled via OM: Order cancelled - Patient discharged Performed By: #### L 500.2500, L100.0100 ####[facility] [address] [place], [address] HCT Normal 37-47 [facility] Comment on above: Result Comment: Canc elled via OM: Order cancelled - Patient discharged Performed By: #### L 500.2500, L100.0100 ####[facility] [address] [place], [address] HGB Normal 12.0-15.0 [facility] Comment on above: Result Comment: Canc elled via OM: Order cancelled - Patient discharged Performed By: #### L 500.2500, L100.0100 ####[facility] [address] [place], [address] MCH Normal 27.0-32.0 [facility] Comment on above: Result Comment: Canc elled via OM: Order cancelled - Patient discharged Performed By: #### L 500.2500, L100.0100 ####[facility] [address] [place], [address] MCHC Normal 32-36 [facility] Comment on above: Result Comment: Canc elled via OM: Order cancelled - Patient discharged Performed By: #### L 500.2500, L100.0100 ####[facility] [address] [place], [address] MCV Normal 81-99 [facility] Comment on above: Result Comment: Canc elled via OM: Order cancelled - Patient discharged Performed By: #### L 500.2500, L100.0100 ####[facility] [address] [place], [address] NEUT% Normal 47-70 [facility] Comment on above: Result Comment: Canc elled via OM: Order cancelled - Patient discharged Performed By: #### L 500.2500, L100.0100 ####[facility] [address] [place], [address] PLT Normal 150-450 [facility] Comment on above: Result Comment: Canc elled via OM: Order cancelled - Patient discharged Performed By: #### L 500.2500, L100.0100 ####[facility] [address] [place], [address] RBC Normal 4.2-5.4 [facility] Comment on above: Result Comment: Canc elled via OM: Order cancelled - Patient discharged Performed By: #### L 500.2500, L100.0100 ####[facility] [address] [place], [address] RDW CV Normal 11.6-14.6 [facility] Comment on above: Result Comment: Canc elled via OM: Order cancelled - Patient discharged Performed By: #### L 500.2500, L100.0100 ####[facility] [address] [place], [address] RDW SD Normal 35.1-43.9 [facility] Comment on above: Result Comment: Canc elled via OM: Order cancelled - Patient discharged Performed By: #### L 500.2500, L100.0100 ####[facility] [address] [place], [address] WBC Normal 4.4-11.0 [facility] Comment on above: Result Comment: Canc elled via OM: Order cancelled - Patient discharged Performed By: #### L 500.2500, L100.0100 ####[facility] [address] [place], [address] Basic Metabolic Profile (BMP )on 01-27-2025 BUN Normal 4-19 [facility] Comment on above: Result Comment: Canc elled via OM: Order cancelled - Patient discharged Performed By: #### L 500.2500, L100.0100 ####[facility] [address] [place], [address] BUN/CRE Normal 10-20 [facility] Comment on above: Result Comment: Canc elled via OM: Order cancelled - Patient discharged Performed By: #### L 500.2500, L100.0100 ####[facility] [address] [place], [address] Calcium Normal 7.6-11.0 [facility] Comment on above: Result Comment: Canc elled via OM: Order cancelled - Patient discharged Performed By: #### L 500.2500, L100.0100 ####[facility] [address] [place], [address] CL Normal 98-108 [facility] Comment on above: Result Comment: Canc elled via OM: Order cancelled - Patient discharged Performed By: #### L 500.2500, L100.0100 ####[facility] [address] [place], [address] CO2 Normal 21.0-32.0 [facility] Comment on above: Result Comment: Canc elled via OM: Order cancelled - Patient discharged Performed By: #### L 500.2500, L100.0100 ####[facility] [address] [place], [address] CREAT,SERUM Normal 0.70-1.20 [facility] Comment on above: Result Comment: Canc elled via OM: Order cancelled - Patient discharged Performed By: #### L 500.2500, L100.0100 ####[facility] [address] [place], [address] eGFR Normal >60 [facility] Comment on above: Result Comment: Canc elled via OM: Order cancelled - Patient discharged Performed By: #### L 500.2500, L100.0100 ####[facility] [address] [place], [address] GAP Normal 5-15 [facility] Comment on above: Result Comment: Canc elled via OM: Order cancelled - Patient discharged Performed By: #### L 500.2500, L100.0100 ####[facility] [address] [place], [address] GLU Normal 70-99 [facility] Comment on above: Result Comment: Canc elled via OM: Order cancelled - Patient discharged Performed By: #### L 500.2500, L100.0100 ####[facility] [address] [place], [address] Potassium Normal 3.3-5.1 [facility] Comment on above: Result Comment: Canc elled via OM: Order cancelled - Patient discharged Performed By: #### L 500.2500, L100.0100 ####[facility] [address] [place], [address] Basic Metabolic Profile (BMP) Normal 133-145 [facility] Comment on above: Result Comment: Canc elled via OM: Order cancelled - Patient discharged Performed By: #### L 500.2500, L100.0100 ####[facility] [address] [place], [address] CBC W/Diff, Automatedon 05-3 0-2024 Absolute Neut Normal 2.0-7.7 [facility] Comment on above: Result Comment: Canc elled via OM: Order cancelled - Patient discharged Performed By: #### L 500.2500, L100.0100 ####[facility] [address] [place], [address] HCT Normal 37-47 [facility] Comment on above: Result Comment: Canc elled via OM: Order cancelled - Patient discharged Performed By: #### L 500.2500, L100.0100 ####[facility] [address] [place], [address] HGB Normal 12.0-15.0 [facility] Comment on above: Result Comment: Canc elled via OM: Order cancelled - Patient discharged Performed By: #### L 500.2500, L100.0100 ####[facility] [address] [place], [address] MCH Normal 27.0-32.0 [facility] Comment on above: Result Comment: Canc elled via OM: Order cancelled - Patient discharged Performed By: #### L 500.2500, L100.0100 ####[facility] [address] [place], [address] MCHC Normal 32-36 [facility] Comment on above: Result Comment: Canc elled via OM: Order cancelled - Patient discharged Performed By: #### L 500.2500, L100.0100 ####[facility] [address] [place], [address] MCV Normal 81-99 [facility] Comment on above: Result Comment: Canc elled via OM: Order cancelled - Patient discharged Performed By: #### L 500.2500, L100.0100 ####[facility] [address] [place], [address] NEUT% Normal 47-70 [facility] Comment on above: Result Comment: Canc elled via OM: Order cancelled - Patient discharged Performed By: #### L 500.2500, L100.0100 ####[facility] [address] [place], [address] PLT Normal 150-450 [facility] Comment on above: Result Comment: Canc elled via OM: Order cancelled - Patient discharged Performed By: #### L 500.2500, L100.0100 ####[facility] [address], [address] RBC Normal 4.2-5.4 [facility] Comment on above: Result Comment: Canc elled via OM: Order cancelled - Patient discharged Performed By: #### L 500.2500, L100.0100 ####[facility] [address] [place], [address] RDW CV Normal 11.6-14.6 [facility] Comment on above: Result Comment: Canc elled via OM: Order cancelled - Patient discharged Performed By: #### L 500.2500, L100.0100 ####[facility] [address] [place], [address] RDW SD Normal 35.1-43.9 [facility] Comment on above: Result Comment: Canc elled via OM: Order cancelled - Patient discharged Performed By: #### L 500.2500, L100.0100 ####[facility] [address] [place], [address] WBC Normal 4.4-11.0 [facility] Comment on above: Result Comment: Canc elled via OM: Order cancelled - Patient discharged Performed By: #### L 500.2500, L100.0100 ####[facility] [address] [place], [address] Absolute lymphocyte countOrd ered By: Jg Bryan on 01-26-2025 Lymphocytes Auto (Unsp spec) [#/Vol] 2.24 10*3/uL 0.83-4.51 [facility] Anion gap in Serum or Plasma Ordered By: Jg Bryan on 01-26-2025 Anion gap [Moles/Vol] 10 mmol/L 5-15 [facility] Automated lymphocyte count a s percentage of total leukocytesOrdered By: Jg Bryan on 01-26-2025 Lymphocytes/100 WBC Auto (Unsp spec) 25.1 % - [facility] BUN/creatinine ratioOrdered By: Jg Bryan on 01-26-2025 Urea nitrogen/Creatinine [Mass ratio] 30.2 mg/mg High 10-20 [facility] Basic Metabolic Profile (BMP )on 01-26-2025 BUN Normal 4-19 [facility] Comment on above: Result Comment: Canc elled via OM: Order cancelled - Patient discharged Performed By: #### L 500.2500, L100.0100 ####[facility] [address] [place], [address] BUN/CRE Normal 10- [facility] Comment on above: Result Comment: Canc elled via OM: Order cancelled - Patient discharged Performed By: #### L 500.2500, L100.0100 ####[facility] [address] [place], [address] Calcium Normal 7.6-11.0 [facility] Comment on above: Result Comment: Canc elled via OM: Order cancelled - Patient discharged Performed By: #### L 500.2500, L100.0100 ####[facility] [address] [place], [address] CL Normal 98-108 [facility] Comment on above: Result Comment: Canc elled via OM: Order cancelled - Patient discharged Performed By: #### L 500.2500, L100.0100 ####[facility] [address] [place], [address] CO2 Normal 21.0-32.0 [facility] Comment on above: Result Comment: Canc elled via OM: Order cancelled - Patient discharged Performed By: #### L 500.2500, L100.0100 ####[facility] [address] [place], [address] CREAT,SERUM Normal 0.70-1.20 [facility] Comment on above: Result Comment: Canc elled via OM: Order cancelled - Patient discharged Performed By: #### L 500.2500, L100.0100 ####[facility] [address] [place], [address] eGFR Normal >60 [facility] Comment on above: Result Comment: Canc elled via OM: Order cancelled - Patient discharged Performed By: #### L 500.2500, L100.0100 ####[facility] [address] [place], [address] GAP Normal 5-15 [facility] Comment on above: Result Comment: Canc elled via OM: Order cancelled - Patient discharged Performed By: #### L 500.2500, L100.0100 ####[facility] [address] [place], [address] GLU Normal 70-99 [facility] Comment on above: Result Comment: Canc elled via OM: Order cancelled - Patient discharged Performed By: #### L 500.2500, L100.0100 ####[facility] [address] [place], [address] Potassium Normal 3.3-5.1 [facility] Comment on above: Result Comment: Canc elled via OM: Order cancelled - Patient discharged Performed By: #### L 500.2500, L100.0100 ####[facility] [address] [place], [address] Basic Metabolic Profile (BMP) Normal 133-145 [facility] Comment on above: Result Comment: Canc elled via OM: Order cancelled - Patient discharged Performed By: #### L 500.2500, L100.0100 ####[facility] [address] [place], [address] BUN/CRE 30.2 RATIO High 10-20 [facility] Comment on above: Performed By: #### L 501.5200, L503.7505, L500.2500, L100.0100 ####[facility] [address] [place], [address] Calcium [Mass/Vol] 10.2 mg/dL Normal 7.6-11.0 [facility] Comment on above: Performed By: #### L 501.5200, L503.7505, L500.2500, L100.0100 ####[facility] [address] [place], [address] Chloride [Moles/Vol] 104 mmol/L Normal 98-108 [facility] Comment on above: Performed By: #### L 501.5200, L503.7505, L500.2500, L100.0100 ####[facility] [address] [place], [address] CO2 [Moles/Vol] 27.1 mmol/L Normal 21.0-32.0 [facility] Comment on above: Performed By: #### L 501.5200, L503.7505, L500.2500, L100.0100 ####[facility] [address] [place], [address] Creatinine [Mass/Vol] 1.16 mg/dL Normal 0.70-1.20 [facility] Comment on above: Performed By: #### L 501.5200, L503.7505, L500.2500, L100.0100 ####[facility] [address] [place], [address] ECRCL 38.24 ml/min Low 50-250 [facility] Comment on above: Performed By: #### L 501.5200, L503.7505, L500.2500, L100.0100 ####[facility] [address] [place], [address] GAP 10 Normal 5-15 [facility] Comment on above: Performed By: #### L 501.5200, L503.7505, L500.2500, L100.0100 ####[facility] [address] [place], [address] GFR/1.73 sq M.predicted among non-blacks MDRD (S/P/Bld) [Vol rate/Area] 47 mL/min/{1.73_m2} Low >60 [facility] Comment on above: Result Comment: mL/m in/1.73m2 CKD-EPI Creatinine Equation (2020) Performed By: #### L 501.5200, L503.7505, L500.2500, L100.0100 ####[facility] [address] [place], [address] Glucose [Mass/Vol] 211 mg/dL High 70-99 [facility] Comment on above: Performed By: #### L 501.5200, L503.7505, L500.2500, L100.0100 ####[facility] [address] [place], [address] Potassium [Moles/Vol] 4.1 mmol/L Normal 3.3-5.1 [facility] Comment on above: Performed By: #### L 501.5200, L503.7505, L500.2500, L100.0100 ####[facility] [address] [place], [address] Sodium [Moles/Vol] 141 mmol/L Normal 133-145 [facility] Comment on above: Performed By: #### L 501.5200, L503.7505, L500.2500, L100.0100 ####[facility] [address] [place], [address] Urea nitrogen [Mass/Vol] 35 mg/dL High 4-19 [facility] Comment on above: Performed By: #### L 501.5200, L503.7505, L500.2500, L100.0100 ####[facility] [address] [place], [address] Basophil percentageOrdered B y: Jg Bryan on 01-26-2025 Basophils/100 WBC (Bld) 0.1 % 0-1 [facility] CBC W/Diff, Automatedon 05 Absolute Neut Normal 2.0-7.7 [facility] Comment on above: Result Comment: Canc elled via OM: Order cancelled - Patient discharged Performed By: #### L 500.2500, L100.0100 ####[facility] [address] [place], [address] HCT Normal 37-47 [facility] Comment on above: Result Comment: Canc elled via OM: Order cancelled - Patient discharged Performed By: #### L 500.2500, L100.0100 ####[facility] [address] [place], [address] HGB Normal 12.0-15.0 [facility] Comment on above: Result Comment: Canc elled via OM: Order cancelled - Patient discharged Performed By: #### L 500.2500, L100.0100 ####[facility] [address] [place], [address] MCH Normal 27.0-32.0 [facility] Comment on above: Result Comment: Canc elled via OM: Order cancelled - Patient discharged Performed By: #### L 500.2500, L100.0100 ####[facility] [address] [place], [address] MCHC Normal 32-36 [facility] Comment on above: Result Comment: Canc elled via OM: Order cancelled - Patient discharged Performed By: #### L 500.2500, L100.0100 ####[facility] [address] [place], [address] MCV Normal 81-99 [facility] Comment on above: Result Comment: Canc elled via OM: Order cancelled - Patient discharged Performed By: #### L 500.2500, L100.0100 ####[facility] [address] [place], [address] NEUT% Normal 47-70 [facility] Comment on above: Result Comment: Canc elled via OM: Order cancelled - Patient discharged Performed By: #### L 500.2500, L100.0100 ####[facility] [address] [place], [address] PLT Normal 150-450 [facility] Comment on above: Result Comment: Canc elled via OM: Order cancelled - Patient discharged Performed By: #### L 500.2500, L100.0100 ####[facility] [address] [place], [address] RBC Normal 4.2-5.4 [facility] Comment on above: Result Comment: Canc elled via OM: Order cancelled - Patient discharged Performed By: #### L 500.2500, L100.0100 ####[facility] [address] [place], [address] RDW CV Normal 11.6-14.6 [facility] Comment on above: Result Comment: Canc elled via OM: Order cancelled - Patient discharged Performed By: #### L 500.2500, L100.0100 ####[facility] [address] [place], [address] RDW SD Normal 35.1-43.9 [facility] Comment on above: Result Comment: Canc elled via OM: Order cancelled - Patient discharged Performed By: #### L 500.2500, L100.0100 ####[facility] [address] [place], [address] WBC Normal 4.4-11.0 [facility] Comment on above: Result Comment: Canc elled via OM: Order cancelled - Patient discharged Performed By: #### L 500.2500, L100.0100 ####[facility] [address] [place], [address] Absolute Lymph 2.24 X10 3/uL Normal 0.83-4.51 [facility] Comment on above: Performed By: #### L 501.5200, L503.7505, L500.2500, L100.0100 ####[facility] [address] [place], [address] Absolute Neut 5.8 X10 3/uL Normal 2.0-7.7 [facility] Comment on above: Performed By: #### L 501.5200, L503.7505, L500.2500, L100.0100 ####[facility] [address] [place], [address] Basophils/100 WBC (Bld) 0.1 % Normal 0-1 [facility] Comment on above: Performed By: #### L 501.5200, L503.7505, L500.2500, L100.0100 ####[facility] [address] [place], [address] Eosinophils/100 WBC (Bld) 2.8 % Normal 0-5 [facility] Comment on above: Performed By: #### L 501.5200, L503.7505, L500.2500, L100.0100 ####[facility] [address] [place], [address] Erythrocyte distribution width (RBC) [Ratio] 15.9 % High 11.6-14.6 [facility] Comment on above: Performed By: #### L 501.5200, L503.7505, L500.2500, L100.0100 ####[facility] [address] [place], [address] Hematocrit (Bld) [Volume fraction] 37.9 % Normal 37-47 [facility] Comment on above: Performed By: #### L 501.5200, L503.7505, L500.2500, L100.0100 ####[facility] [address] [place], [address] Hemoglobin (Bld) [Mass/Vol] 11.8 g/dL Low 12.0-15.0 [facility] Comment on above: Performed By: #### L 501.5200, L503.7505, L500.2500, L100.0100 ####[facility] [address] [place], [address] IG% 0.300 Normal 0.0-0.9 [facility] Comment on above: Result Comment: IG% - Immature Granulocytes (promyelocytes, myelocytes andmetamyelocytes) > 1% indicates that a LEFT SHIFT is Present. Performed By: #### L 501.5200, L503.7505, L500.2500, L100.0100 ####[facility] [address] [place], [address] Lymphocytes/100 WBC (Bld) 25.1 % Normal 19-41 [facility] Comment on above: Performed By: #### L 501.5200, L503.7505, L500.2500, L100.0100 ####[facility] [address] [place], [address] MCH (RBC) [Entitic mass] 27.3 pg Normal 27.0-32.0 [facility] Comment on above: Performed By: #### L 501.5200, L503.7505, L500.2500, L100.0100 ####[facility] [address] [place], [address] MCHC (RBC) [Mass/Vol] 31.1 g/dL Low 32-36 [facility] Comment on above: Performed By: #### L 501.5200, L503.7505, L500.2500, L100.0100 ####[facility] [address] [place], [address] MCV (RBC) [Entitic vol] 87.5 fL Normal 81-99 [facility] Comment on above: Performed By: #### L 501.5200, L503.7505, L500.2500, L100.0100 ####[facility] [address] [place], [address] Monocytes/100 WBC (Bld) 6.7 % Normal 0-[address] [facility] Comment on above: Performed By: #### L 501.5200, L503.7505, L500.2500, L100.0100 ####[facility] [address] [place], [address] Neutrophils/100 WBC (Bld) 65.0 % Normal 47-70 [facility] Comment on above: Performed By: #### L 501.5200, L503.7505, L500.2500, L100.0100 ####[facility] [address] [place], [address] Nucleated RBC (Bld) [#/Vol] 0 10*3/uL Normal 0-5 [facility] Comment on above: Performed By: #### L 501.5200, L503.7505, L500.2500, L100.0100 ####[facility] [address] [place], [address] Platelet mean volume (Bld) [Entitic vol] 10.8 fL Normal 6.2-12.0 [facility] Comment on above: Performed By: #### L 501.5200, L503.7505, L500.2500, L100.0100 ####[facility] [address] [place], [address] Platelets (Bld) [#/Vol] 247 10*3/uL Normal 150-450 [facility] Comment on above: Performed By: #### L 501.5200, L503.7505, L500.2500, L100.0100 ####[facility] [address] [place], [address] RBC (Bld) [#/Vol] 4.33 10*6/uL Normal 4.2-5.4 [facility] Comment on above: Performed By: #### L 501.5200, L503.7505, L500.2500, L100.0100 ####[facility] [address] [place], [address] RDW SD 51.0 fl High 35.1-43.9 [facility] Comment on above: Performed By: #### L 501.5200, L503.7505, L500.2500, L100.0100 ####[facility] [address] [place], [address] WBC (Bld) [#/Vol] 8.9 10*3/uL Normal 4.4-11.0 [facility] Comment on above: Performed By: #### L 501.5200, L503.7505, L500.2500, L100.0100 ####[facility] [address] [place], [address] Carbon dioxide, total [Moles /volume] in Central venous bloodOrdered By: Jg Bryan on 01-26-2025 CO2 [Moles/Vol] 27.1 mmol/L 21.0-32.0 [facility] Chest PA and Lateralon 01-26 Chest PA and Lateral Normal [facility] Chloride assayOrdered By: Matilde Bryan on 01-26-2025 Chloride [Moles/Vol] 104 mmol/L 98-108 [facility] Emergency Department Summary on 01-26-2025 Emergency Department Summary Normal [facility] Eosinophil percentageOrdered By: Jg Bryan on 01-26-2025 Eosinophils/100 WBC (Bld) 2.8 % 0-5 [facility] Erythrocyte distribution wid th ratioOrdered By: Jg Bryan on 01-26-2025 Erythrocyte distribution width (RBC) [Ratio] 15.9 % High 11.6-14.6 [facility] Erythrocyte distribution wid th standard deviationOrdered By: Jg Bryan on 01-26-2025 Erythrocyte distribution width (RBC) [Ratio] 51.0 fl High 35.1-43.9 [facility] Glomerular filtration rate ( GFR) estimation/1.73 sq m using serum, plasma, or whole bOrdered By: Jg Bryan on 01-26-2025 GFR/1.73 sq M.predicted among non-blacks MDRD (S/P/Bld) [Vol rate/Area] 47 mL/min/{1.73_m2} Low >60 [facility] Hematocrit Auto (Bld) [Volum e fraction]Ordered By: Jg Bryan on 01-26-2025 Hematocrit (Bld) [Volume fraction] 37.9 % 37-47 [facility] Hemoglobin measurementOrdere d By: Jg Bryan on 01-26-2025 Hemoglobin (Bld) [Mass/Vol] 11.8 g/dL Low 12.0-15.0 [facility] Immature granulocytes/100 WB C Auto (Bld)Ordered By: Jg Bryan on 01-26-2025 Immature granulocytes/100 WBC (Bld) 0.300 % 0.0-0.9 [facility] L503.7505on 01-26-2025 Natriuretic peptide B (Bld) [Mass/Vol] 3334 pg/mL High <=1800 [facility] Comment on above: Result Comment: Hear t Failure Unlikely: < 300 pg/mLHeart Failure Likely< 50 Years: > 450 pg/mL50-75 Years: > 900 pg/mL>75 Years: > 1800 pg/mL Performed By: #### L 501.5200, L503.7505, L500.2500, L100.0100 ####[facility] [address] [place], [address] MCV (mean corpuscular volume ) determinationOrdered By: Jg Bryan on 01-26-2025 MCV (RBC) [Entitic vol] 87.5 fL 81-99 [facility] Magnesiumon 01-26-2025 Magnesium [Mass/Vol] 2.7 mg/dL High 1.5-2.2 [facility] Comment on above: Performed By: #### L 501.5200, L503.4485, L500.2500, L100.0100 ####[facility] [address] [place], [place], [id number] Magnesium measurement (mass/ volume)Ordered By: Jg Bryan on 01-26-2025 Magnesium (Unsp spec) [Mass/Vol] 2.7 mg/dL High 1.5-2.2 [facility] Mean corpuscular hemoglobin (MCH) determinationOrdered By: Jg Bryan on 01-26-2025 MCH (RBC) [Entitic mass] 27.3 pg 27.0-32.0 [facility] Monocyte percentageOrdered B y: Jg Bryan on 01-26-2025 Monocytes/100 WBC (Bld) 6.7 % 0-10 [facility] Natriuretic peptide.B prohor hayley N-Terminal [Mass/volume] in Serum or PlasmaOrdered By: Jg Bryan on 01-26-2025 Natriuretic peptide.B prohormone N-Terminal [Mass/Vol] 3334 pg/mL High <1800 [facility] Neutrophil percentageOrdered By: Jg Bryan on 01-26-2025 Neutrophils/100 WBC (Bld) 65.0 % 47-70 [facility] Platelet countOrdered By: Matilde Bryan on 01-26-2025 Platelets (Bld) [#/Vol] 247 10*3/uL 150-450 [facility] Potassium measurement (mass/ volume)Ordered By: Jg Bryan on 01-26-2025 Potassium (Unsp spec) [Mass/Vol] 4.1 mmol/L 3.3-5.1 [facility] RBC Auto (Bld) [#/Vol]Ordere d By: Jg Bryan on 01-26-2025 RBC (Bld) [#/Vol] 4.33 10*6/uL 4.2-5.4 [facility] Serum creatinine measurement (mass/volume)Ordered By: Jg Bryan on 01-26-2025 Creatinine [Mass/Vol] 1.16 mg/dL 0.70-1.20 [facility] Serum glucose measurement (m ass/volume)Ordered By: Jg Bryan on 01-26-2025 Glucose [Mass/Vol] 211 mg/dL High 70-99 [facility] Serum or plasma calcium melanie urement (mass/volume)Ordered By: Jg Bryan on 01-26-2025 Calcium [Mass/Vol] 10.2 mg/dL 7.6-11.0 [facility] Serum or plasma urea nitroge n measurement (mass/volume)Ordered By: Jg Bryan on 01-26-2025 Urea nitrogen [Mass/Vol] 35 mg/dL High - [facility] Sodium levelOrdered By: Cosme Bryan on 01-26-2025 Sodium [Moles/Vol] 141 mmol/L 133-145 [facility] White blood cell (WBC) count Ordered By: Jg Bryan on 01-26-2025 WBC (Bld) [#/Vol] 8.9 10*3/uL 4.4-11.0 [facility] Basic Metabolic Profile (BMP )on 01-25-2025 BUN Normal - [facility] Comment on above: Result Comment: Canc elled via OM: Order cancelled - Patient discharged Performed By: #### L 100.0100, L500.2500 ####[facility] [address] [place], [address] BUN/CRE Normal 10- [facility] Comment on above: Result Comment: Canc elled via OM: Order cancelled - Patient discharged Performed By: #### L 100.0100, L500.2500 ####[facility] [address] [place], [address] Calcium Normal 7.6-11.0 [facility] Comment on above: Result Comment: Canc elled via OM: Order cancelled - Patient discharged Performed By: #### L 100.0100, L500.2500 ####[facility] [address] [place], [address] CL Normal 98-108 [facility] Comment on above: Result Comment: Canc elled via OM: Order cancelled - Patient discharged Performed By: #### L 100.0100, L500.2500 ####[facility] [address] [place], [address] CO2 Normal 21.0-32.0 [facility] Comment on above: Result Comment: Canc elled via OM: Order cancelled - Patient discharged Performed By: #### L 100.0100, L500.2500 ####[facility] [address] [place], [address] CREAT,SERUM Normal 0.70-1.20 [facility] Comment on above: Result Comment: Canc elled via OM: Order cancelled - Patient discharged Performed By: #### L 100.0100, L500.2500 ####[facility] [address] [place], [address] eGFR Normal >60 [facility] Comment on above: Result Comment: Canc elled via OM: Order cancelled - Patient discharged Performed By: #### L 100.0100, L500.2500 ####[facility] [address] [place], [address] GAP Normal 5-15 [facility] Comment on above: Result Comment: Canc elled via OM: Order cancelled - Patient discharged Performed By: #### L 100.0100, L500.2500 ####[facility] [address] [place], [address] GLU Normal 70-99 [facility] Comment on above: Result Comment: Canc elled via OM: Order cancelled - Patient discharged Performed By: #### L 100.0100, L500.2500 ####[facility] [address] [place], [address] Potassium Normal 3.3-5.1 [facility] Comment on above: Result Comment: Canc elled via OM: Order cancelled - Patient discharged Performed By: #### L 100.0100, L500.2500 ####[facility] [address] [place], [address] Basic Metabolic Profile (BMP) Normal 133-145 [facility] Comment on above: Result Comment: Canc elled via OM: Order cancelled - Patient discharged Performed By: #### L 100.0100, L500.2500 ####[facility] [address] [place], [address] CBC W/Diff, Automatedon 05-2 Absolute Neut Normal 2.0-7.7 [facility] Comment on above: Result Comment: Canc elled via OM: Order cancelled - Patient discharged Performed By: #### L 100.0100, L500.2500 ####[facility] [address] [place], [address] HCT Normal 37-47 [facility] Comment on above: Result Comment: Canc elled via OM: Order cancelled - Patient discharged Performed By: #### L 100.0100, L500.2500 ####[facility] [address] [place], [address] HGB Normal 12.0-15.0 [facility] Comment on above: Result Comment: Canc elled via OM: Order cancelled - Patient discharged Performed By: #### L 100.0100, L500.2500 ####[facility] [address] [place], [address] MCH Normal 27.0-32.0 [facility] Comment on above: Result Comment: Canc elled via OM: Order cancelled - Patient discharged Performed By: #### L 100.0100, L500.2500 ####[facility] [address] [place], [address] MCHC Normal 32-36 [facility] Comment on above: Result Comment: Canc elled via OM: Order cancelled - Patient discharged Performed By: #### L 100.0100, L500.2500 ####[facility] [address] [place], [address] MCV Normal 81-99 [facility] Comment on above: Result Comment: Canc elled via OM: Order cancelled - Patient discharged Performed By: #### L 100.0100, L500.2500 ####[facility] [address] [place], [address] NEUT% Normal 47-70 [facility] Comment on above: Result Comment: Canc elled via OM: Order cancelled - Patient discharged Performed By: #### L 100.0100, L500.2500 ####[facility] [address] [place], [address] PLT Normal 150-450 [facility] Comment on above: Result Comment: Canc elled via OM: Order cancelled - Patient discharged Performed By: #### L 100.0100, L500.2500 ####[facility] [address] [place], [address] RBC Normal 4.2-5.4 [facility] Comment on above: Result Comment: Canc elled via OM: Order cancelled - Patient discharged Performed By: #### L 100.0100, L500.2500 ####[facility] [address] [place], [address] RDW CV Normal 11.6-14.6 [facility] Comment on above: Result Comment: Canc elled via OM: Order cancelled - Patient discharged Performed By: #### L 100.0100, L500.2500 ####[facility] [address] [place], [address] RDW SD Normal 35.1-43.9 [facility] Comment on above: Result Comment: Canc elled via OM: Order cancelled - Patient discharged Performed By: #### L 100.0100, L500.2500 ####[facility] [address] [place], [address] WBC Normal 4.4-11.0 [facility] Comment on above: Result Comment: Canc elled via OM: Order cancelled - Patient discharged Performed By: #### L 100.0100, L500.2500 ####[facility] [address] [place], [address] Culture, Blood (WB)on 2024 CUB Blood cultures x2, from two different sites No growth in 5 days. Normal [facility] Comment on above: Performed By: #### M 200.1000 ####[facility] [address] [place], [address] Performed By: #### M 200.1000, L503.6005 ####[facility] [address] [place], [address] Performed By: #### L 300.4310, L100.0100, L300.3900, L501.4021, L503.6005, L500.4050, M200.1000 ####[facility] [address] [place], [address] Absolute lymphocyte countOrd ered By: Melba Hartmann on 01-24-2025 Lymphocytes Auto (Unsp spec) [#/Vol] 2.19 10*3/uL 0.83-4.51 [facility] Anion gap in Serum or Plasma Ordered By: Melba Hartmann on 01-24-2025 Anion gap [Moles/Vol] 12 mmol/L 5-15 [facility] Automated lymphocyte count a s percentage of total leukocytesOrdered By: Melba Hartmann on 01-24-2025 Lymphocytes/100 WBC Auto (Unsp spec) 19.3 % 19-41 [facility] BUN/creatinine ratioOrdered By: Melba Hartmann on 01-24-2025 Urea nitrogen/Creatinine [Mass ratio] 35.2 mg/mg High 10-20 [facility] Basic Metabolic Profile (BMP )on 01-24-2025 BUN/CRE 35.2 RATIO High 10-20 [facility] Comment on above: Performed By: #### L 500.2500, L100.0100 ####[facility] [address] [place], [address] Calcium [Mass/Vol] 10.1 mg/dL Normal 7.6-11.0 [facility] Comment on above: Performed By: #### L 500.2500, L100.0100 ####[facility] [address] [place], [address] Chloride [Moles/Vol] 102 mmol/L Normal 98-108 [facility] Comment on above: Performed By: #### L 500.2500, L100.0100 ####[facility] [address] [place], [address] CO2 [Moles/Vol] 23.7 mmol/L Normal 21.0-32.0 [facility] Comment on above: Performed By: #### L 500.2500, L100.0100 ####[facility] [address] [place], [address] Creatinine [Mass/Vol] 1.31 mg/dL High 0.70-1.20 [facility] Comment on above: Performed By: #### L 500.2500, L100.0100 ####[facility] [address] [place], [address] ECRCL 33.41 ml/min Low 50-250 [facility] Comment on above: Performed By: #### L 500.2500, L100.0100 ####[facility] [address] [place], [address] GAP 12 Normal 5-15 [facility] Comment on above: Performed By: #### L 500.2500, L100.0100 ####[facility] [address] [place], [address] GFR/1.73 sq M.predicted among non-blacks MDRD (S/P/Bld) [Vol rate/Area] 41 mL/min/{1.73_m2} Low >60 [facility] Comment on above: Result Comment: mL/m in/1.73m2 CKD-EPI Creatinine Equation (2020) Performed By: #### L 500.2500, L100.0100 ####[facility] [address] [place], [address] Glucose [Mass/Vol] 133 mg/dL High 70-99 [facility] Comment on above: Performed By: #### L 500.2500, L100.0100 ####[facility] [address] [place], [address] Potassium [Moles/Vol] 3.5 mmol/L Normal 3.3-5.1 [facility] Comment on above: Performed By: #### L 500.2500, L100.0100 ####[facility] [address] [place], [address] Sodium [Moles/Vol] 138 mmol/L Normal 133-145 [facility] Comment on above: Performed By: #### L 500.2500, L100.0100 ####[facility] [address] [place], [address] Urea nitrogen [Mass/Vol] 46 mg/dL High 4-19 [facility] Comment on above: Performed By: #### L 500.2500, L100.0100 ####[facility] [address] [place], [address] Basophil percentageOrdered B y: Melba Hartmann on 01-24-2025 Basophils/100 WBC (Bld) 0.2 % 0-1 [facility] Bedside Glucoseon 01-24-2025 FINGERSTICK GLU 167 mg/dL High 74-106 [facility] Comment on above: Result Comment: KATARINA GEMENT OF PATIENT CARE PER NURSING PROTOCOL Performed By: #### L 501.080 ####[facility] [address] [place], [address] FINGERSTICK GLU 143 mg/dL High 74-106 [facility] Comment on above: Result Comment: KATARINA GEMENT OF PATIENT CARE PER NURSING PROTOCOL Performed By: #### L 501.080 ####[facility] [address] [place], [address] CBC W/Diff, Automatedon 05-2 7-2024 Absolute Lymph 2.19 X10 3/uL Normal 0.83-4.51 [facility] Comment on above: Performed By: #### L 500.2500, L100.0100 ####[facility] [address] [place], [address] Absolute Neut 8.2 X10 3/uL High 2.0-7.7 [facility] Comment on above: Performed By: #### L 500.2500, L100.0100 ####[facility] [address] [place], [address] Basophils/100 WBC (Bld) 0.2 % Normal 0-1 [facility] Comment on above: Performed By: #### L 500.2500, L100.0100 ####[facility] [address] [place], [address] Eosinophils/100 WBC (Bld) 0.2 % Normal 0-5 [facility] Comment on above: Performed By: #### L 500.2500, L100.0100 ####[facility] [address] [place], [address] Erythrocyte distribution width (RBC) [Ratio] 15.8 % High 11.6-14.6 [facility] Comment on above: Performed By: #### L 500.2500, L100.0100 ####[facility] [address] [place], [address] Hematocrit (Bld) [Volume fraction] 40.7 % Normal 37-47 [facility] Comment on above: Performed By: #### L 500.2500, L100.0100 ####[facility] [address] [place], [address] Hemoglobin (Bld) [Mass/Vol] 12.7 g/dL Normal 12.0-15.0 [facility] Comment on above: Performed By: #### L 500.2500, L100.0100 ####[facility] [address] [place], [address] IG% 0.400 Normal 0.0-0.9 [facility] Comment on above: Result Comment: IG% - Immature Granulocytes (promyelocytes, myelocytes andmetamyelocytes) > 1% indicates that a LEFT SHIFT is Present. Performed By: #### L 500.2500, L100.0100 ####[facility] [address] [place], [address] Lymphocytes/100 WBC (Bld) 19.3 % Normal 19-41 [facility] Comment on above: Performed By: #### L 500.2500, L100.0100 ####[facility] [address] [place], [address] MCH (RBC) [Entitic mass] 27.4 pg Normal 27.0-32.0 [facility] Comment on above: Performed By: #### L 500.2500, L100.0100 ####[facility] [address] [place], [address] MCHC (RBC) [Mass/Vol] 31.2 g/dL Low 32-36 [facility] Comment on above: Performed By: #### L 500.2500, L100.0100 ####[facility] [address] [place], [address] MCV (RBC) [Entitic vol] 87.7 fL Normal 81-99 [facility] Comment on above: Performed By: #### L 500.2500, L100.0100 ####[facility] [address] [place], [address] Monocytes/100 WBC (Bld) 7.4 % Normal 0-10 [facility] Comment on above: Performed By: #### L 500.2500, L100.0100 ####[facility] [address] [place], [address] Neutrophils/100 WBC (Bld) 72.5 % High 47-70 [facility] Comment on above: Performed By: #### L 500.2500, L100.0100 ####[facility] [address] [place], [address] Nucleated RBC (Bld) [#/Vol] 0 10*3/uL Normal 0-5 [facility] Comment on above: Performed By: #### L 500.2500, L100.0100 ####[facility] [address] [place], [address] Platelet mean volume (Bld) [Entitic vol] 10.9 fL Normal 6.2-12.0 [facility] Comment on above: Performed By: #### L 500.2500, L100.0100 ####[facility] [address] [place], [address] Platelets (Bld) [#/Vol] 297 10*3/uL Normal 150-450 [facility] Comment on above: Performed By: #### L 500.2500, L100.0100 ####[facility] [address] [place], [address] RBC (Bld) [#/Vol] 4.64 10*6/uL Normal 4.2-5.4 [facility] Comment on above: Performed By: #### L 500.2500, L100.0100 ####[facility] [address] [place], [address] RDW SD 50.9 fl High 35.1-43.9 [facility] Comment on above: Performed By: #### L 500.2500, L100.0100 ####[facility] [address] [place], [address] WBC (Bld) [#/Vol] 11.3 10*3/uL High 4.4-11.0 [facility] Comment on above: Performed By: #### L 500.2500, L100.0100 ####[facility] [address] [place], [address] Carbon dioxide, total [Moles /volume] in Central venous bloodOrdered By: eMlba Hartmann on 01-24-2025 CO2 [Moles/Vol] 23.7 mmol/L 21.0-32.0 [facility] Chloride assayOrdered By: Ewelina Hartmann on 01-24-2025 Chloride [Moles/Vol] 102 mmol/L 98-108 [facility] Discharge Instructionon 12-30 Discharge Instruction Normal [facility] Electrocardiogram reportOrde red By: Marcelina Soto on 01-24-2025 EKG study [facility] Work Phone: Eosinophil percentageOrdered By: Melba Hartmann on 01-24-2025 Eosinophils/100 WBC (Bld) 0.2 % 0-5 [facility] Erythrocyte distribution wid th ratioOrdered By: Melba Hartmann on 01-24-2025 Erythrocyte distribution width (RBC) [Ratio] 15.8 % High 11.6-14.6 [facility] Erythrocyte distribution wid th standard deviationOrdered By: Melba Hartmann on 01-24-2025 Erythrocyte distribution width (RBC) [Ratio] 50.9 fl High 35.1-43.9 [facility] Glomerular filtration rate ( GFR) estimation/1.73 sq m using serum, plasma, or whole bOrdered By: Melba Hartmann on 01-24-2025 GFR/1.73 sq M.predicted among non-blacks MDRD (S/P/Bld) [Vol rate/Area] 41 mL/min/{1.73_m2} Low >60 [facility] By: Melba Hartmann on 01-24-2025 Glucose [Mass/Vol] 167 mg/dL High 74-106 [facility] Hematocrit Auto (Bld) [Volum e fraction]Ordered By: Melba Hartmann on 01-24-2025 Hematocrit (Bld) [Volume fraction] 40.7 % 37-47 [facility] Hemoglobin measurementOrdere d By: Melba Hartmann on 01-24-2025 Hemoglobin (Bld) [Mass/Vol] 12.7 g/dL 12.0-15.0 [facility] Immature granulocytes/100 WB C Auto (Bld)Ordered By: Melba Hartmann on 01-24-2025 Immature granulocytes/100 WBC (Bld) 0.400 % 0.0-0.9 [facility] MCV (mean corpuscular volume ) determinationOrdered By: Melba Hartmann 01-24-2025 MCV (RBC) [Entitic vol] 87.7 fL 81-99 [facility] Mean corpuscular hemoglobin (MCH) determinationOrdered By: Melba Hartmann 01-24-2025 MCH (RBC) [Entitic mass] 27.4 pg 27.0-32.0 [facility] Monocyte percentageOrdered B y: Melba Hartmann on 01-24-2025 Monocytes/100 WBC (Bld) 7.4 % 0-10 [facility] Neutrophil percentageOrdered By: Melba Hartmann on 01-24-2025 Neutrophils/100 WBC (Bld) 72.5 % High 47-70 [facility] Platelet countOrdered By: Na ewelina Hartmann on 01-24-2025 Platelets (Bld) [#/Vol] 297 10*3/uL 150-450 [facility] Potassium measurement (mass/ volume)Ordered By: Melba Hartmann on 01-24-2025 Potassium (Unsp spec) [Mass/Vol] 3.5 mmol/L 3.3-5.1 [facility] RBC Auto (Bld) [#/Vol]Ordere d By: Melba Hartmann on 01-24-2025 RBC (Bld) [#/Vol] 4.64 10*6/uL 4.2-5.4 [facility] Serum creatinine measurement (mass/volume)Ordered By: Melba Hartmann on 01-24-2025 Creatinine [Mass/Vol] 1.31 mg/dL High 0.70-1.20 [facility] Serum glucose measurement (m ass/volume)Ordered By: Melba Elizondojanene on 01-24-2025 Glucose [Mass/Vol] 133 mg/dL High 70-99 [facility] Serum or plasma calcium melanie urement (mass/volume)Ordered By: Melba Elizondojanene on 01-24-2025 Calcium [Mass/Vol] 10.1 mg/dL 7.6-11.0 [facility] Serum or plasma urea nitroge n measurement (mass/volume)Ordered By: Melba Elizondojanene on 01-24-2025 Urea nitrogen [Mass/Vol] 46 mg/dL High 4-19 [facility] Sodium levelOrdered By: Melbanereida Hartmann on 01-24-2025 Sodium [Moles/Vol] 138 mmol/L 133-145 [facility] White blood cell (WBC) count Ordered By: Melba Elizondojanene on 01-24-2025 WBC (Bld) [#/Vol] 11.3 10*3/uL High 4.4-11.0 [facility] Basic Metabolic Profile (BMP )on 01-23-2025 BUN/CRE 33.0 RATIO High 10-20 [facility] Comment on above: Performed By: #### L 100.0100, L500.2500 ####[facility] [address] [place], [address] Calcium [Mass/Vol] 10.8 mg/dL Normal 7.6-11.0 [facility] Comment on above: Performed By: #### L 100.0100, L500.2500 ####[facility] [address] [place], [address] Chloride [Moles/Vol] 98 mmol/L Normal 98-108 [facility] Comment on above: Performed By: #### L 100.0100, L500.2500 ####[facility] [address] [place], [address] CO2 [Moles/Vol] 25.4 mmol/L Normal 21.0-32.0 [facility] Comment on above: Performed By: #### L 100.0100, L500.2500 ####[facility] [address] [place], [address] Creatinine [Mass/Vol] 1.32 mg/dL High 0.70-1.20 [facility] Comment on above: Performed By: #### L 100.0100, L500.2500 ####[facility] [address] [place], [address] ECRCL 32.84 ml/min Low 50-250 [facility] Comment on above: Performed By: #### L 100.0100, L500.2500 ####[facility] [address] [place], [address] GAP 12 Normal 5-15 [facility] Comment on above: Performed By: #### L 100.0100, L500.2500 ####[facility] [address] [place], [address] GFR/1.73 sq M.predicted among non-blacks MDRD (S/P/Bld) [Vol rate/Area] 41 mL/min/{1.73_m2} Low >60 [facility] Comment on above: Result Comment: mL/m in/1.73m2 CKD-EPI Creatinine Equation (2020) Performed By: #### L 100.0100, L500.2500 ####[facility] [address] [place], [address] Glucose [Mass/Vol] 200 mg/dL High 70-99 [facility] Comment on above: Performed By: #### L 100.0100, L500.2500 ####[facility] [address] [place], [address] Potassium [Moles/Vol] 5.2 mmol/L High 3.3-5.1 [facility] Comment on above: Result Comment: Hemo lysis present, Results??could be affected.?? Performed By: #### L 100.0100, L500.2500 ####[facility] [address] [place], [address] Sodium [Moles/Vol] 135 mmol/L Normal 133-145 [facility] Comment on above: Performed By: #### L 100.0100, L500.2500 ####[facility] [address] [place], [address] Urea nitrogen [Mass/Vol] 44 mg/dL High 4-19 [facility] Comment on above: Performed By: #### L 100.0100, L500.2500 ####[facility] [address] [place], [address] Bedside Glucoseon 01-23-2025 FINGERSTICK GLU 294 mg/dL High 74-106 [facility] Comment on above: Result Comment: KATARINA GEMENT OF PATIENT CARE PER NURSING PROTOCOL Performed By: #### L 501.080 ####[facility] [address] [place], [address] FINGERSTICK GLU 314 mg/dL High 74-106 [facility] Comment on above: Result Comment: KATARINA GEMENT OF PATIENT CARE PER NURSING PROTOCOL Performed By: #### L 501.080 ####[facility] [address] [place], [address] FINGERSTICK GLU 291 mg/dL High 74-106 [facility] Comment on above: Result Comment: KATARINA GEMENT OF PATIENT CARE PER NURSING PROTOCOL Performed By: #### L 501.080 ####[facility] [address] [place], [address] FINGERSTICK GLU 214 mg/dL High 74-106 [facility] Comment on above: Result Comment: KATARINA GARY OF PATIENT CARE PER NURSING PROTOCOL Performed By: #### L 501.080 ####[facility] [address] [place], [address] CBC W/Diff, Automatedon 05-2 Absolute Lymph 0.74 X10 3/uL Low 0.83-4.51 [facility] Comment on above: Performed By: #### L 100.0100, L500.2500 ####[facility] [address] [place], [address] Absolute Neut 10.9 X10 3/uL High 2.0-7.7 [facility] Comment on above: Performed By: #### L 100.0100, L500.2500 ####[facility] [address] [place], [address] Basophils/100 WBC (Bld) 0.1 % Normal 0-1 [facility] Comment on above: Performed By: #### L 100.0100, L500.2500 ####[facility] [address] [place], [address] Eosinophils/100 WBC (Bld) 0.0 % Normal 0-5 [facility] Comment on above: Performed By: #### L 100.0100, L500.2500 ####[facility] [address] [place], [address] Erythrocyte distribution width (RBC) [Ratio] 15.8 % High 11.6-14.6 [facility] Comment on above: Performed By: #### L 100.0100, L500.2500 ####[facility] [address] [place], [address] Hematocrit (Bld) [Volume fraction] 41.8 % Normal 37-47 [facility] Comment on above: Performed By: #### L 100.0100, L500.2500 ####[facility] [address] [place], [address] Hemoglobin (Bld) [Mass/Vol] 13.1 g/dL Normal 12.0-15.0 [facility] Comment on above: Performed By: #### L 100.0100, L500.2500 ####[facility] [address] [place], [address] IG% 0.200 Normal 0.0-0.9 [facility] Comment on above: Result Comment: IG% - Immature Granulocytes (promyelocytes, myelocytes andmetamyelocytes) > 1% indicates that a LEFT SHIFT is Present. Performed By: #### L 100.0100, L500.2500 ####[facility] [address] [place], [address] Lymphocytes/100 WBC (Bld) 6.2 % Low 19-41 [facility] Comment on above: Performed By: #### L 100.0100, L500.2500 ####[facility] [address] [place], [address] MCH (RBC) [Entitic mass] 27.3 pg Normal 27.0-32.0 [facility] Comment on above: Performed By: #### L 100.0100, L500.2500 ####[facility] [address] [place], [address] MCHC (RBC) [Mass/Vol] 31.3 g/dL Low 32-36 [facility] Comment on above: Performed By: #### L 100.0100, L500.2500 ####[facility] [address] [place], [address] MCV (RBC) [Entitic vol] 87.1 fL Normal 81-[address] [facility] Comment on above: Performed By: #### L 100.0100, L500.2500 ####[facility] [address] [place], [address] Monocytes/100 WBC (Bld) 2.7 % Normal 0-10 [facility] Comment on above: Performed By: #### L 100.0100, L500.2500 ####[facility] [address] [place], [address] Neutrophils/100 WBC (Bld) 90.8 % High 47-70 [facility] Comment on above: Performed By: #### L 100.0100, L500.2500 ####[facility] [address] [place], [address] Nucleated RBC (Bld) [#/Vol] 0 10*3/uL Normal 0-5 [facility] Comment on above: Performed By: #### L 100.0100, L500.2500 ####[facility] [address] [place], [address] Platelet mean volume (Bld) [Entitic vol] 11.6 fL Normal 6.2-12.0 [facility] Comment on above: Performed By: #### L 100.0100, L500.2500 ####[facility] [address] [place], [address] Platelets (Bld) [#/Vol] 322 10*3/uL Normal 150-450 [facility] Comment on above: Performed By: #### L 100.0100, L500.2500 ####[facility] [address] [place], [address] RBC (Bld) [#/Vol] 4.80 10*6/uL Normal 4.2-5.4 [facility] Comment on above: Performed By: #### L 100.0100, L500.2500 ####[facility] [address] [place], [address] RDW SD 50.2 fl High 35.1-43.9 [facility] Comment on above: Performed By: #### L 100.0100, L500.2500 ####[facility] [address] [place], [address] WBC (Bld) [#/Vol] 12.0 10*3/uL High 4.4-11.0 [facility] Comment on above: Performed By: #### L 100.0100, L500.2500 ####[facility] [address] [place], [address] Basic Metabolic Profile (BMP )on 01-22-2025 BUN/CRE 29.2 RATIO High 10-20 [facility] Comment on above: Performed By: #### L 500.2500, L100.0100 ####[facility] [address] [place], [address] Calcium [Mass/Vol] 10.2 mg/dL Normal 7.6-11.0 [facility] Comment on above: Performed By: #### L 500.2500, L100.0100 ####[facility] [address] [place], [address] Chloride [Moles/Vol] 99 mmol/L Normal 98-108 [facility] Comment on above: Performed By: #### L 500.2500, L100.0100 ####[facility] [address] [place], [address] CO2 [Moles/Vol] 27.0 mmol/L Normal 21.0-32.0 [facility] Comment on above: Performed By: #### L 500.2500, L100.0100 ####[facility] [address] [place], [address] Creatinine [Mass/Vol] 1.07 mg/dL Normal 0.70-1.20 [facility] Comment on above: Performed By: #### L 500.2500, L100.0100 ####[facility] [address] [place], [address] ECRCL 40.54 ml/min Low 50-250 [facility] Comment on above: Performed By: #### L 500.2500, L100.0100 ####[facility] [address] [place], [address] GAP 10 Normal 5-15 [facility] Comment on above: Performed By: #### L 500.2500, L100.0100 ####[facility] [address] [place], [address] GFR/1.73 sq M.predicted among non-blacks MDRD (S/P/Bld) [Vol rate/Area] 52 mL/min/{1.73_m2} Low >60 [facility] Comment on above: Result Comment: mL/m in/1.73m2 CKD-EPI Creatinine Equation (2020) Performed By: #### L 500.2500, L100.0100 ####[facility] [address] [place], [address] Glucose [Mass/Vol] 160 mg/dL High 70-99 [facility] Comment on above: Performed By: #### L 500.2500, L100.0100 ####[facility] [address] [place], [address] Potassium [Moles/Vol] 4.8 mmol/L Normal 3.3-5.1 [facility] Comment on above: Performed By: #### L 500.2500, L100.0100 ####[facility] [address] [place], [address] Sodium [Moles/Vol] 136 mmol/L Normal 133-145 [facility] Comment on above: Performed By: #### L 500.2500, L100.0100 ####[facility] [address] [place], [address] Urea nitrogen [Mass/Vol] 31 mg/dL High 4-19 [facility] Comment on above: Performed By: #### L 500.2500, L100.0100 ####[facility] [address] [place], [address] Bedside Glucoseon 01-22-2025 FINGERSTICK GLU 310 mg/dL High 74-106 [facility] Comment on above: Result Comment: KATARINA GEMENT OF PATIENT CARE PER NURSING PROTOCOL Performed By: #### L 501.080 ####[facility] [address] [place], [address] FINGERSTICK GLU 269 mg/dL High 74-106 [facility] Comment on above: Result Comment: KATARINA GEMENT OF PATIENT CARE PER NURSING PROTOCOL Performed By: #### L 501.080 ####[facility] [address] [place], [address] FINGERSTICK GLU 232 mg/dL High -106 [facility] Comment on above: Result Comment: KATARINA GEMENT OF PATIENT CARE PER NURSING PROTOCOL Performed By: #### L 501.080 ####[facility] [address] [place], [address] FINGERSTICK GLU 183 mg/dL High 74-106 [facility] Comment on above: Result Comment: KATARINA GEMENT OF PATIENT CARE PER NURSING PROTOCOL Performed By: #### L 501.080 ####[facility] [address] [place], [address] CBC W/Diff, Automatedon 05- Absolute Lymph 0.73 X10 3/uL Low 0.83-4.51 [facility] Comment on above: Performed By: #### L 500.2500, L100.0100 ####[facility] [address] [place], [address] Absolute Neut 11.7 X10 3/uL High 2.0-7.7 [facility] Comment on above: Performed By: #### L 500.2500, L100.0100 ####[facility] [address] [place], [address] Basophils/100 WBC (Bld) 0.0 % Normal 0-1 [facility] Comment on above: Performed By: #### L 500.2500, L100.0100 ####[facility] [address] [place], [address] Eosinophils/100 WBC (Bld) 0.0 % Normal 0-5 [facility] Comment on above: Performed By: #### L 500.2500, L100.0100 ####[facility] [address] [place], [address] Erythrocyte distribution width (RBC) [Ratio] 15.9 % High 11.6-14.6 [facility] Comment on above: Performed By: #### L 500.2500, L100.0100 ####[facility] [address] [place], [address] Hematocrit (Bld) [Volume fraction] 35.6 % Low 37-47 [facility] Comment on above: Performed By: #### L 500.2500, L100.0100 ####[facility] [address] [place], [address] Hemoglobin (Bld) [Mass/Vol] 11.1 g/dL Low 12.0-15.0 [facility] Comment on above: Performed By: #### L 500.2500, L100.0100 ####[facility] [address] [place], [address] IG% 0.500 Normal 0.0-0.9 [facility] Comment on above: Result Comment: IG% - Immature Granulocytes (promyelocytes, myelocytes andmetamyelocytes) > 1% indicates that a LEFT SHIFT is Present. Performed By: #### L 500.2500, L100.0100 ####[facility] [address] [place], [address] Lymphocytes/100 WBC (Bld) 5.7 % Low 19-41 [facility] Comment on above: Performed By: #### L 500.2500, L100.0100 ####[facility] [address] [place], [address] MCH (RBC) [Entitic mass] 27.3 pg Normal 27.0-32.0 [facility] Comment on above: Performed By: #### L 500.2500, L100.0100 ####[facility] [address] [place], [address] MCHC (RBC) [Mass/Vol] 31.2 g/dL Low 32-36 [facility] Comment on above: Performed By: #### L 500.2500, L100.0100 ####[facility] [address] [place], [address] MCV (RBC) [Entitic vol] 87.7 fL Normal [address] [facility] Comment on above: Performed By: #### L 500.2500, L100.0100 ####[facility] [address] [place], [address] Monocytes/100 WBC (Bld) 2.4 % Normal 0-[address] [facility] Comment on above: Performed By: #### L 500.2500, L100.0100 ####[facility] [address] [place], [address] Neutrophils/100 WBC (Bld) 91.4 % High 47-70 [facility] Comment on above: Performed By: #### L 500.2500, L100.0100 ####[facility] [address] [place], [address] Nucleated RBC (Bld) [#/Vol] 0 10*3/uL Normal 0-5 [facility] Comment on above: Performed By: #### L 500.2500, L100.0100 ####[facility] [address] [place], [address] Platelet mean volume (Bld) [Entitic vol] 11.1 fL Normal 6.2-12.0 [facility] Comment on above: Performed By: #### L 500.2500, L100.0100 ####[facility] [address] [place], [address] Platelets (Bld) [#/Vol] 281 10*3/uL Normal 150-450 [facility] Comment on above: Performed By: #### L 500.2500, L100.0100 ####[facility] [address] [place], [address] RBC (Bld) [#/Vol] 4.06 10*6/uL Low 4.2-5.4 [facility] Comment on above: Performed By: #### L 500.2500, L100.0100 ####[facility] [address] [place], [address] RDW SD 51.3 fl High 35.1-43.9 [facility] Comment on above: Performed By: #### L 500.2500, L100.0100 ####[facility] [address] [place], [address] WBC (Bld) [#/Vol] 12.8 10*3/uL High 4.4-11.0 [facility] Comment on above: Performed By: #### L 500.2500, L100.0100 ####[facility] [address] [place], [address] Urine Cultureon 01-22-2025 URC Normal [facility] Comment on above: Performed By: #### M 100.2200 ####[facility] [address] [place], [address] Basic Metabolic Profile (BMP )on 01-21-2025 BUN/CRE 19.6 RATIO Normal 10-20 [facility] Comment on above: Performed By: #### L 503.7505, L500.2500 ####[facility] [address] [place], [address] Calcium [Mass/Vol] 9.8 mg/dL Normal 7.6-11.0 [facility] Comment on above: Performed By: #### L 503.7505, L500.2500 ####[facility] [address] [place], [address] Chloride [Moles/Vol] 99 mmol/L Normal 98-108 [facility] Comment on above: Performed By: #### L 503.7505, L500.2500 ####[facility] [address] [place], [address] CO2 [Moles/Vol] 24.3 mmol/L Normal 21.0-32.0 [facility] Comment on above: Performed By: #### L 503.7505, L500.2500 ####[facility] [address] [place], [address] Creatinine [Mass/Vol] 1.19 mg/dL Normal 0.70-1.20 [facility] Comment on above: Performed By: #### L 503.7505, L500.2500 ####[facility] [address] [place], [address] ECRCL 36.45 ml/min Low 50-250 [facility] Comment on above: Performed By: #### L 503.7505, L500.2500 ####[facility] [address] [place], [address] GAP 14 Normal 5-15 [facility] Comment on above: Performed By: #### L 503.7505, L500.2500 ####[facility] [address] [place], [address] GFR/1.73 sq M.predicted among non-blacks MDRD (S/P/Bld) [Vol rate/Area] 46 mL/min/{1.73_m2} Low >60 [facility] Comment on above: Result Comment: mL/m in/1.73m2 CKD-EPI Creatinine Equation (2020) Performed By: #### L 503.7505, L500.2500 ####[facility] [address] [place], [address] Glucose [Mass/Vol] 208 mg/dL High 70-99 [facility] Comment on above: Performed By: #### L 503.7505, L500.2500 ####[facility] [address] [place], [address] Potassium [Moles/Vol] 4.0 mmol/L Normal 3.3-5.1 [facility] Comment on above: Performed By: #### L 503.7505, L500.2500 ####[facility] [address] [place], [address] Sodium [Moles/Vol] 138 mmol/L Normal 133-145 [facility] Comment on above: Performed By: #### L 503.7505, L500.2500 ####[facility] [address] [place], [address] Urea nitrogen [Mass/Vol] 23 mg/dL High 4-19 [facility] Comment on above: Performed By: #### L 503.7505, L500.2500 ####[facility] [address] [place], [address] Bedside Glucoseon 01-21-2025 FINGERSTICK GLU 271 mg/dL High 74-106 [facility] Comment on above: Result Comment: KATARINA GARY OF PATIENT CARE PER NURSING PROTOCOL Performed By: #### L 501.080 ####[facility] [address] [place], [address] FINGERSTICK GLU 254 mg/dL High 74-106 [facility] Comment on above: Result Comment: KATARINA GEMENT OF PATIENT CARE PER NURSING PROTOCOL Performed By: #### L 501.080 ####[facility] [address] [place], [address] FINGERSTICK GLU 323 mg/dL High 74-106 [facility] Comment on above: Result Comment: KATARINA GEMENT OF PATIENT CARE PER NURSING PROTOCOL Performed By: #### L 501.080 ####[facility] [address] [place], [address] FINGERSTICK GLU 202 mg/dL High 74-106 [facility] Comment on above: Result Comment: KATARINA GEMENT OF PATIENT CARE PER NURSING PROTOCOL Performed By: #### L 501.080 ####[facility] [address] [place], [address] CBC W/Diff, Automatedon 05-2 4-2024 Absolute Lymph 0.79 X10 3/uL Low 0.83-4.51 [facility] Comment on above: Performed By: #### L 100.0100 ####[facility] [address] [place], [address] Absolute Neut 9.1 X10 3/uL High 2.0-7.7 [facility] Comment on above: Performed By: #### L 100.0100 ####[facility] [address] [place], [address] Basophils/100 WBC (Bld) 0.0 % Normal 0-1 [facility] Comment on above: Performed By: #### L 100.0100 ####[facility] [address] [place], [address] Eosinophils/100 WBC (Bld) 0.0 % Normal 0-5 [facility] Comment on above: Performed By: #### L 100.0100 ####[facility] [address] [place], [address] Erythrocyte distribution width (RBC) [Ratio] 16.0 % High 11.6-14.6 [facility] Comment on above: Performed By: #### L 100.0100 ####[facility] [address] [place], [address] Hematocrit (Bld) [Volume fraction] 35.0 % Low 37-47 [facility] Comment on above: Performed By: #### L 100.0100 ####[facility] [address] [place], [address] Hemoglobin (Bld) [Mass/Vol] 10.8 g/dL Low 12.0-15.0 [facility] Comment on above: Performed By: #### L 100.0100 ####[facility] [address] [place], [address] IG% 0.400 Normal 0.0-0.9 [facility] Comment on above: Result Comment: IG% - Immature Granulocytes (promyelocytes, myelocytes andmetamyelocytes) > 1% indicates that a LEFT SHIFT is Present. Performed By: #### L 100.0100 ####[facility] [address] [place], [address] Lymphocytes/100 WBC (Bld) 7.7 % Low 19-41 [facility] Comment on above: Performed By: #### L 100.0100 ####[facility] [address] [place], [address] MCH (RBC) [Entitic mass] 27.4 pg Normal 27.0-32.0 [facility] Comment on above: Performed By: #### L 100.0100 ####[facility] [address] [place], [address] MCHC (RBC) [Mass/Vol] 30.9 g/dL Low 32-36 [facility] Comment on above: Performed By: #### L 100.0100 ####[facility] [address] [place], [address] MCV (RBC) [Entitic vol] 88.8 fL Normal 81-99 [facility] Comment on above: Performed By: #### L 100.0100 ####[facility] [address] [place], [address] Monocytes/100 WBC (Bld) 3.5 % Normal 0-[address] [facility] Comment on above: Performed By: #### L 100.0100 ####[facility] [address] [place], [address] Neutrophils/100 WBC (Bld) 88.4 % High 47-70 [facility] Comment on above: Performed By: #### L 100.0100 ####[facility] [address] [place], [address] Nucleated RBC (Bld) [#/Vol] 0 10*3/uL Normal 0-5 [facility] Comment on above: Performed By: #### L 100.0100 ####[facility] [address] [place], [address] Platelet mean volume (Bld) [Entitic vol] 11.0 fL Normal 6.2-12.0 [facility] Comment on above: Performed By: #### L 100.0100 ####[facility] [address] [place], [address] Platelets (Bld) [#/Vol] 245 10*3/uL Normal 150-450 [facility] Comment on above: Performed By: #### L 100.0100 ####[facility] [address] [place], [address] RBC (Bld) [#/Vol] 3.94 10*6/uL Low 4.2-5.4 [facility] Comment on above: Performed By: #### L 100.0100 ####[facility] [address] [place], [address] RDW SD 51.8 fl High 35.1-43.9 [facility] Comment on above: Performed By: #### L 100.0100 ####[facility] [address] [place], [address] WBC (Bld) [#/Vol] 10.3 10*3/uL Normal 4.4-11.0 [facility] Comment on above: Performed By: #### L 100.0100 ####[facility] [address] [place], [address] Chest 1 View (Portable)on Chest 1 View (Portable) Normal [facility] L503.7505on 01-21-2025 Natriuretic peptide B (Bld) [Mass/Vol] 83967 pg/mL High <=1800 [facility] Comment on above: Result Comment: Hear t Failure Unlikely: < 300 pg/mLHeart Failure Likely< 50 Years: > 450 pg/mL50-75 Years: > 900 pg/mL>75 Years: > 1800 pg/mL Performed By: #### L 503.7505, L500.2500 ####[facility] [address] [place], [address] Natriuretic peptide.B prohor hayley N-Terminal [Mass/volume] in Serum or PlasmaOrdered By: Sandeep Marie on 01-21-2025 Natriuretic peptide.B prohormone N-Terminal [Mass/Vol] 44881 pg/mL High <1800 [facility] 12 Lead EKGon 01-20-2025 12 Lead EKG Normal [facility] Activated partial thrombopla stin time (aPTT) in platelet poor plasma by coagulation aOrdered By: Jeevan Yoder on 01-20-2025 aPTT Coag (PPP) [Time] 26.9 s 24.1-36.2 [facility] Assessment of wrist artery p atency prior to arterial punctureOrdered By: Lucio Borden on 01-20-2025 Arterial patency Wrist artery --pre arterial puncture Positive [facility] Bedside Glucoseon 01-20-2025 FINGERSTICK GLU 265 mg/dL High 74-106 [facility] Comment on above: Result Comment: KATARINA GEMENT OF PATIENT CARE PER NURSING PROTOCOL Performed By: #### L 501.080 ####[facility] [address] [place], [address] FINGERSTICK GLU 389 mg/dL [address] Comment on above: Result Comment: KATARINA GEMENT OF PATIENT CARE PER NURSING PROTOCOL Performed By: #### L 501.080 ####[facility] [address] [place], [address] FINGERSTICK GLU 361 mg/dL High [address] [place] [address] Comment on above: Result Comment: KATARINA GEMENT OF PATIENT CARE PER NURSING PROTOCOL Performed By: #### L 501.080 ####[facility] [address] [place], [address] FINGERSTICK GLU 338 mg/dL High [address] [place] [address] Comment on above: Result Comment: KATARINA GEMENT OF PATIENT CARE PER NURSING PROTOCOL Performed By: #### L 501.080 ####[facility] [address] [place], [address] Bilirubin Test strip Ql (U)O rdered By: Jeevan Yoder on 01-20-2025 Bilirubin Ql (U) Negative Negative [facility] Bilirubin, totalOrdered By: Jeevan Yoder on 01-20-2025 Bilirubin [Mass/Vol] 0.26 mg/dL 0.00-1.30 [facility] BARON TEST Positive Normal [facility] Comment on above: Performed By: #### L 9000.0800 ####[facility] [address] [place], [address] Base excess Calc (Bld) [Moles/Vol] 10 mmol/L High -2 to +2 [facility] Comment on above: Performed By: #### L 9000.08 ####[facility] [address] [place], [address] Blood Gas Type ART Normal [facility] Comment on above: Performed By: #### L 8999.0800 ####[facility] [address] [place], [address] CO2 [Moles/Vol] 37 mmol/L Normal [facility] Comment on above: Performed By: #### L 8999.08 ####[facility] [address] [place], [address] FI02 30.0 Normal [facility] Comment on above: Performed By: #### L 8999.0800 ####[facility] [address] [place], [address] HCO3 (Bld) [Moles/Vol] 35.5 mmol/L High 22-26 [facility] Comment on above: Performed By: #### L 8999.0800 ####[facility] [address] [place], [address] Normal [facility] Comment on above: Performed By: #### L 8999.08 ####[facility] [address] [place], [address] O2 Delivery Dev BiPAP Normal [facility] Comment on above: Performed By: #### L 8999.0800 ####[facility] [address] [place], [address] pCO2 59.4 mmHg High 35-45 [facility] Comment on above: Performed By: #### L 8999.0800 ####[facility] [address] [place], [address] PEEP 8 Normal [facility] Comment on above: Performed By: #### L 8999.0800 ####[facility] [address] [place], [address] pH (Bld) 7.38 [pH] Normal 7.35-7.45 [facility] Comment on above: Performed By: #### L 9000.0800 ####[facility] [address] [place], [address] PO2 21 mmHG Invalid Interpretation Code 75-100 [facility] Comment on above: Performed By: #### L 9000.0800 ####[facility] [address] [place], [address] Read Back By Yes [facility] Comment on above: Performed By: #### L 9000.0800 ####[facility] [address] [place], [address] Results To tereletsky Normal [facility] Comment on above: Performed By: #### L 9000.0800 ####[facility] [address] [place], [address] RR 14 Normal [facility] Comment on above: Performed By: #### L 9000.0800 ####[facility] [address] [place], [address] SITE R Radial Normal [facility] Comment on above: Performed By: #### L 9000.0800 ####[facility] [address] [place], [address] SO2 32 Low 95-99 [facility] Comment on above: Performed By: #### L 9000.0800 ####[facility] [address] [place], [address] Time Given 16:55:40 [facility] Comment on above: Performed By: #### L 9000.0800 ####[facility] [address] [place], [address] Vt 500.0 mL Normal [facility] Comment on above: Performed By: #### L 9000.0800 ####[facility] [address] [place], [address] BARON TEST Positive Normal [facility] Comment on above: Performed By: #### L 9000.0800 ####[facility] [address] [place], [address] Base excess Calc (Bld) [Moles/Vol] 5 mmol/L High -2 to +2 [facility] Comment on above: Performed By: #### L 9000.0800 ####[facility] [address] [place], [address] Blood Gas Type ART Normal [facility] Comment on above: Performed By: #### L 9000.0800 ####[facility] [address] [place], [address] CO2 [Moles/Vol] 33 mmol/L Normal [facility] Comment on above: Performed By: #### L 9000.0800 ####[facility] [address] [place], [address] FI02 30.0 [facility] Comment on above: Performed By: #### L 9000.0800 ####[facility] [address] [place], [address] HCO3 (Bld) [Moles/Vol] 30.8 mmol/L High 22-26 [facility] Comment on above: Performed By: #### L 9000.0800 ####[facility] [address] [place], [address] Mode Not entered Normal [facility] Comment on above: Performed By: #### L 9000.0800 ####[facility] [address] [place], [address] O2 Delivery Dev BiPAP Normal [facility] Comment on above: Performed By: #### L 9000.0800 ####[facility] [address] [place], [address] pCO2 56.2 mmHg High 35-45 [facility] Comment on above: Performed By: #### L 9000.0800 ####[facility] [address] [place], [address] PEEP 8 Normal [facility] Comment on above: Performed By: #### L 9000.0800 ####[facility] [address] [place], [address] pH (Bld) 7.35 [pH] Normal 7.35-7.45 [facility] Comment on above: Performed By: #### L 9000.0800 ####[facility] [address] [place], [address] PO2 37 mmHG Invalid Interpretation Code 75-100 [facility] Comment on above: Performed By: #### L 9000.0800 ####[facility] [address] [place], [address] Read Back By Yes [facility] Comment on above: Performed By: #### L 9000.0800 ####[facility] [address] [place], [address] RR 14 Normal [facility] Comment on above: Performed By: #### L 9000.0800 ####[facility] [address] [place], [address] SITE R Radial Normal [facility] Comment on above: Performed By: #### L 9000.0800 ####[facility] [address] [place], [address] SO2 66 Low 95-99 [facility] Comment on above: Performed By: #### L 9000.0800 ####[facility] [address] [place], [address] Vt 500.0 mL Normal [facility] Comment on above: Performed By: #### L 8999.08 ####[facility] [address] [place], [address] BARON TEST Positive Normal [facility] Comment on above: Performed By: #### L 8999.0800 ####[facility] [address] [place], [address] Base excess Calc (Bld) [Moles/Vol] 5 mmol/L High -2 to +2 [facility] Comment on above: Performed By: #### L 8999.0800 ####[facility] [address] [place], [address] Blood Gas Type ART Normal [facility] Comment on above: Performed By: #### L 8999.0800 ####[facility] [address] [place], [address] CO2 [Moles/Vol] 34 mmol/L Normal [facility] Comment on above: Performed By: #### L 8999.0800 ####[facility] [address] [place], [address] Comment Normal [facility] Comment on above: Result Comment: AVAP S 500vt 14rr 100% +8 maxP=26 minP=18 Performed By: #### L 8999.0800 ####[facility] [address] [place], [address] FI02 100.0 Normal [facility] Comment on above: Performed By: #### L 8999.0800 ####[facility] [address] [place], [address] HCO3 (Bld) [Moles/Vol] 31.6 mmol/L High 22-26 [facility] Comment on above: Performed By: #### L 9000.0800 ####[facility] [address] [place], [address] Mode Not entered Normal [facility] Comment on above: Performed By: #### L 9000.0800 ####[facility] [address] [place], [address] O2 Delivery Dev BiPAP Normal [facility] Comment on above: Performed By: #### L 9000.0800 ####[facility] [address] [place], [address] pCO2 63.0 mmHg High 35-45 [facility] Comment on above: Performed By: #### L 9000.0800 ####[facility] [address] [place], [address] pH (Bld) 7.31 [pH] Low 7.35-7.45 [facility] Comment on above: Performed By: #### L 9000.0800 ####[facility] [address] [place], [address] PO2 83 mmHG Normal 75-100 [facility] [facility] Comment on above: Performed By: #### L 9000.0800 ####[facility] [address] [place], [address] SITE R Radial Normal [facility] Comment on above: Performed By: #### L 9000.0800 ####[facility] [address] [place], [address] SO2 95 Normal 95-99 [facility] Comment on above: Performed By: #### L 9000.0800 ####[facility] [address] [place], [address] Blood base excess determinat ionOrdered By: Lucio Borden on 01-20-2025 Base excess Calc (BldV) [Moles/Vol] 10 mmol/L High -2-2 [facility] Blood bicarbonate measuremen tOrdered By: Lucio Borden on 01-20-2025 HCO3 (Bld) [Moles/Vol] 35.5 mmol/L High 22-26 [facility] Blood cultureOrdered By: Mikey Marie on 01-20-2025 Bacteria identified Cx Nom (Bld) No growth in 5 days. [facility] Blood cultureOrdered By: Maeve Yoder on 01-20-2025 Bacteria identified Cx Nom (Bld) No growth in 5 days. [facility] Bacteria identified Cx Nom (Bld) No growth in 5 days. [facility] CBC W/Diff, Automatedon 12-30 Absolute Lymph 4.62 X10 3/uL High 0.83-4.51 [facility] Comment on above: Performed By: #### L 300.4310, L100.0100, L300.3900, L501.4021, L503.6005, L500.4050, M200.1000 ####[facility] [address] [place], [address] Absolute Neut 8.4 X10 3/uL High 2.0-7.7 [facility] Comment on above: Performed By: #### L 300.4310, L100.0100, L300.3900, L501.4021, L503.6005, L500.4050, M200.1000 ####[facility] [address] [place], [address] Basophils/100 WBC (Bld) 0.6 % Normal 0-1 [facility] Comment on above: Performed By: #### L 300.4310, L100.0100, L300.3900, L501.4021, L503.6005, L500.4050, M200.1000 ####[facility] [address] [place], [address] Eosinophils/100 WBC (Bld) 0.8 % Normal 0-5 [facility] Comment on above: Performed By: #### L 300.4310, L100.0100, L300.3900, L501.4021, L503.6005, L500.4050, M200.1000 ####[facility] [address] [place], [address] Erythrocyte distribution width (RBC) [Ratio] 16.0 % High 11.6-14.6 [facility] Comment on above: Performed By: #### L 300.4310, L100.0100, L300.3900, L501.4021, L503.6005, L500.4050, M200.1000 ####[facility] [address] [place], [address] Hematocrit (Bld) [Volume fraction] 39.6 % Normal 37-47 [facility] Comment on above: Performed By: #### L 300.4310, L100.0100, L300.3900, L501.4021, L503.6005, L500.4050, M200.1000 ####[facility] [address] [place], [address] Hemoglobin (Bld) [Mass/Vol] 12.1 g/dL Normal 12.0-15.0 [facility] Comment on above: Performed By: #### L 300.4310, L100.0100, L300.3900, L501.4021, L503.6005, L500.4050, M200.1000 ####[facility] [address] [place], [address] IG% 0.500 Normal 0.0-0.9 [facility] Comment on above: Result Comment: IG% - Immature Granulocytes (promyelocytes, myelocytes andmetamyelocytes) > 1% indicates that a LEFT SHIFT is Present. Performed By: #### L 300.4310, L100.0100, L300.3900, L501.4021, L503.6005, L500.4050, M200.1000 ####[facility] [address] [place], [address] Lymphocytes/100 WBC (Bld) 32.0 % Normal 19-41 [facility] Comment on above: Performed By: #### L 300.4310, L100.0100, L300.3900, L501.4021, L503.6005, L500.4050, M200.1000 ####[facility] [address] [place], [address] MCH (RBC) [Entitic mass] 27.4 pg Normal 27.0-32.0 [facility] Comment on above: Performed By: #### L 300.4310, L100.0100, L300.3900, L501.4021, L503.6005, L500.4050, M200.1000 ####[facility] [address] [place], [address] MCHC (RBC) [Mass/Vol] 30.6 g/dL Low 32-36 [facility] Comment on above: Performed By: #### L 300.4310, L100.0100, L300.3900, L501.4021, L503.6005, L500.4050, M200.1000 ####[facility] [address] [place], [address] MCV (RBC) [Entitic vol] 89.8 fL Normal 81-99 [facility] Comment on above: Performed By: #### L 300.4310, L100.0100, L300.3900, L501.4021, L503.6005, L500.4050, M200.1000 ####[facility] [address] [place], [address] Monocytes/100 WBC (Bld) 7.7 % Normal 0-10 [facility] Comment on above: Performed By: #### L 300.4310, L100.0100, L300.3900, L501.4021, L503.6005, L500.4050, M200.1000 ####[facility] [address] [place], [address] Neutrophils/100 WBC (Bld) 58.4 % Normal 47-70 [facility] Comment on above: Performed By: #### L 300.4310, L100.0100, L300.3900, L501.4021, L503.6005, L500.4050, M200.1000 ####[facility] [address] [place], [address] Nucleated RBC (Bld) [#/Vol] 0 10*3/uL Normal 0-5 [facility] Comment on above: Performed By: #### L 300.4310, L100.0100, L300.3900, L501.4021, L503.6005, L500.4050, M200.1000 ####[facility] [address] [place], [address] Platelet mean volume (Bld) [Entitic vol] 12.0 fL Normal 6.2-12.0 [facility] Comment on above: Performed By: #### L 300.4310, L100.0100, L300.3900, L501.4021, L503.6005, L500.4050, M200.1000 ####[facility] [address] [place], [address] Platelets (Bld) [#/Vol] 287 10*3/uL Normal 150-450 [facility] Comment on above: Performed By: #### L 300.4310, L100.0100, L300.3900, L501.4021, L503.6005, L500.4050, M200.1000 ####[facility] [address] [place], [address] RBC (Bld) [#/Vol] 4.41 10*6/uL Normal 4.2-5.4 [facility] Comment on above: Performed By: #### L 300.4310, L100.0100, L300.3900, L501.4021, L503.6005, L500.4050, M200.1000 ####[facility] [address] [place], [address] RDW SD 52.7 fl High 35.1-43.9 [facility] Comment on above: Performed By: #### L 300.4310, L100.0100, L300.3900, L501.4021, L503.6005, L500.4050, M200.1000 ####[facility] [address] [place], [address] WBC (Bld) [#/Vol] 14.4 10*3/uL High 4.4-11.0 [facility] Comment on above: Performed By: #### L 300.4310, L100.0100, L300.3900, L501.4021, L503.6005, L500.4050, M200.1000 ####[facility] [address] [place], [address] CTA Chest W/WO Contraston CTA Chest W/WO Contrast Normal [facility] Calculated very low density lipoprotein (VLDL) cholesterol measurementOrdered By: Sandeep Marie on 01-20-2025 Calculated very low density lipoprotein (VLDL) cholesterol measurement 12 mg/dL 5-40 [facility] Comprehensive Metabolic Prof ilon 01-20-2025 Albumin [Mass/Vol] 3.6 g/dL Normal 3.4-4.8 [facility] Comment on above: Performed By: #### L 300.4310, L100.0100, L300.3900, L501.4021, L503.6005, L500.4050, M200.1000 ####[facility] [address] [place], [place], [address] Albumin/Globulin [Mass ratio] 0.9 {ratio} Normal 0.9-2.4 [facility] Comment on above: Performed By: #### L 300.4310, L100.0100, L300.3900, L501.4021, L503.6005, L500.4050, M200.1000 ####[facility] [address] [place], [address] ALK PHOS 143 U/L High 35-104 [facility] Comment on above: Performed By: #### L 300.4310, L100.0100, L300.3900, L501.4021, L503.6005, L500.4050, M200.1000 ####[facility] [address] [place], [address] ALT [Catalytic activity/Vol] 36 U/L High <=34 [facility] Comment on above: Performed By: #### L 300.4310, L100.0100, L300.3900, L501.4021, L503.6005, L500.4050, M200.1000 ####[facility] [address] [place], [address] AST [Catalytic activity/Vol] 81 U/L High <=31 [facility] Comment on above: Result Comment: Hemo lysis present, Results??could be affected.?? Performed By: #### L 300.4310, L100.0100, L300.3900, L501.4021, L503.6005, L500.4050, M200.1000 ####[facility] [address] [place], [address] Bilirubin [Mass/Vol] 0.26 mg/dL Normal 0.00-1.30 [facility] Comment on above: Performed By: #### L 300.4310, L100.0100, L300.3900, L501.4021, L503.6005, L500.4050, M200.1000 ####[facility] [address] [place], [address] BUN/CRE 8.1 RATIO Low 10-20 [facility] Comment on above: Performed By: #### L 300.4310, L100.0100, L300.3900, L501.4021, L503.6005, L500.4050, M200.1000 ####[facility] [address] [place], [address] Calcium [Mass/Vol] 10.2 mg/dL Normal 7.6-11.0 [facility] Comment on above: Performed By: #### L 300.4310, L100.0100, L300.3900, L501.4021, L503.6005, L500.4050, M200.1000 ####[facility] [address] [place], [address] Chloride [Moles/Vol] 97 mmol/L Low 98-108 [facility] Comment on above: Performed By: #### L 300.4310, L100.0100, L300.3900, L501.4021, L503.6005, L500.4050, M200.1000 ####[facility] [address] [place], [address] CO2 [Moles/Vol] 25.7 mmol/L Normal 21.0-32.0 [facility] Comment on above: Performed By: #### L 300.4310, L100.0100, L300.3900, L501.4021, L503.6005, L500.4050, M200.1000 ####[facility] [address] [place], [address] Creatinine [Mass/Vol] 1.24 mg/dL High 0.70-1.20 [facility] Comment on above: Performed By: #### L 300.4310, L100.0100, L300.3900, L501.4021, L503.6005, L500.4050, M200.1000 ####[facility] [address] [place], [address] ECRCL 34.84 ml/min Low 50-250 [facility] Comment on above: Performed By: #### L 300.4310, L100.0100, L300.3900, L501.4021, L503.6005, L500.4050, M200.1000 ####[facility] [address] [place], [address] GAP 15 Normal 5-15 [facility] Comment on above: Performed By: #### L 300.4310, L100.0100, L300.3900, L501.4021, L503.6005, L500.4050, M200.1000 ####[facility] [address] [place], [address] GFR/1.73 sq M.predicted among non-blacks MDRD (S/P/Bld) [Vol rate/Area] 44 mL/min/{1.73_m2} Low >60 [facility] Comment on above: Result Comment: mL/m in/1.73m2 CKD-EPI Creatinine Equation (2020) Performed By: #### L 300.4310, L100.0100, L300.3900, L501.4021, L503.6005, L500.4050, M200.1000 ####[facility] [address] [place], [address] Globulin (S) [Mass/Vol] 4.1 g/dL Normal 2.2-4.2 [facility] Comment on above: Performed By: #### L 300.4310, L100.0100, L300.3900, L501.4021, L503.6005, L500.4050, M200.1000 ####[facility] [address] [place], [address] Glucose [Mass/Vol] 347 mg/dL High 70-99 [facility] Comment on above: Performed By: #### L 300.4310, L100.0100, L300.3900, L501.4021, L503.6005, L500.4050, M200.1000 ####[facility] [address] [place], [address] Potassium [Moles/Vol] 4.0 mmol/L Normal 3.3-5.1 [facility] Comment on above: Result Comment: Hemo lysis present, Results??could be affected.?? Performed By: #### L 300.4310, L100.0100, L300.3900, L501.4021, L503.6005, L500.4050, M200.1000 ####[facility] [address] [place], [address] Sodium [Moles/Vol] 137 mmol/L Normal 133-145 [facility] Comment on above: Performed By: #### L 300.4310, L100.0100, L300.3900, L501.4021, L503.6005, L500.4050, M200.1000 ####[facility] [address] [place], [address] T PROT 7.6 g/dL Normal 5.9-8.4 [facility] Comment on above: Performed By: #### L 300.4310, L100.0100, L300.3900, L501.4021, L503.6005, L500.4050, M200.1000 ####[facility] [address] [place], [address] Urea nitrogen [Mass/Vol] 10 mg/dL Normal 4-19 [facility] Comment on above: Performed By: #### L 300.4310, L100.0100, L300.3900, L501.4021, L503.6005, L500.4050, M200.1000 ####[facility] [address] [place], [place], [address] Echo Completeon 01-20-2025 Echo Complete Normal [facility] Echocardiogram study reportO rdered By: Marcelina Soto on 01-20-2025 Study report [facility] Work Phone: Emergency Department Summary on 01-20-2025 Emergency Department Summary Normal [facility] H AND P Exam - Hospitaliston 01-20-2025 H&P Exam - Hospitalist Normal [facility] Hemoglobin A1con 01-20-2025 HbA1c (Bld) [Mass fraction] 10.6 % High <=5.6 [facility] Comment on above: Result Comment: Norm al < 5.7 % Prediabetic 5.7 - 6.4 % Diabetic >or= 6.5 % Please note range changes. Performed By: #### L 501.9985 ####[facility] [address] [place], [place], [id number] Hemoglobin A1c percentageOrd ered By: Sandeep Marie on 01-20-2025 HbA1c (Bld) [Mass fraction] 10.6 % High <5.7 [facility] Ketones Test strip Ql (U)Ord ered By: Jeevan Yoder on 01-20-2025 Ketones Ql (U) Negative Negative [facility] L499.0042on 01-20-2025 Trop T High Sen 71 ng/L Invalid Interpretation Code <=14 [facility] Comment on above: Result Comment: Crit ical Result(s) Called at:0237 by: EMA PATEL.??Results read back by same. Performed By: #### L 499.0042 ####[facility] [address] [place], [place], [address] L499.0043on 01-20-2025 Trop T High Sen 94 ng/L Invalid Interpretation Code <=14 [facility] Comment on above: Order Comment: PT SUAREZ S NOT MADE IT TO ROOM YET FROM ER OF 409 Result Comment: Crit ical Result(s) Called at 0548: by: SHARONA ALVAREZ. ??Results read back by same. Performed By: #### L 499.0043 ####[facility] [address] [place], [address] L501.4021on 01-20-2025 Trop T High Sen 52 ng/L High <=14 [facility] Comment on above: Performed By: #### L 300.4310, L100.0100, L300.3900, L501.4021, L503.6005, L500.4050, M200.1000 ####[facility] [address] [place], [address] L503.7505on 01-20-2025 Natriuretic peptide B (Bld) [Mass/Vol] 9449 pg/mL High <=1800 [facility] Comment on above: Result Comment: Hear t Failure Unlikely: < 300 pg/mLHeart Failure Likely< 50 Years: > 450 pg/mL50-75 Years: > 900 pg/mL>75 Years: > 1800 pg/mL Performed By: #### L 501.9520, L503.7505, L500.4100 ####[facility] [address] [place], [place], [id number] LDL calc ser/plasOrdered By: Sandeep Marie on 01-20-2025 Cholesterol in LDL [Mass/Vol] 79 mg/dL [facility] Lactic Acidon 01-20-2025 Lactate [Moles/Vol] 1.7 mmol/L Normal 0.0-2.0 [facility] Comment on above: Performed By: #### L 503.6005 ####[facility] [address] [place], [address] Lactate [Moles/Vol] 2.0 mmol/L Normal 0.0-2.0 [facility] Comment on above: Order Comment: Comme nts: if result >2, system reflex orders 2nd test @ 4hrsY Result Comment: Crit ical Result(s) Called at 0615: by: SHARONA CHRISTOPHER TOAFLICKINGER. ??Results read back by same. Performed By: #### M 200.1000, L503.6005 ####[facility] [address] [place], [address] Lactate [Moles/Vol] 3.4 mmol/L Invalid Interpretation Code 0.0-2.0 [facility] Comment on above: Order Comment: Y Result Comment: Crit ical Result(s) Called at: 0116 by: EMA BOWEN TO [facility].??Results read back by same. Performed By: #### L 300.4310, L100.0100, L300.3900, L501.4021, L503.6005, L500.4050, M200.1000 ####[facility] [address] [place], [address] Legionella Antigen Urineon 0 01-20-2025 LEGU Normal [facility] Comment on above: Performed By: #### M 300.4600, M300.4500 ####[facility] [address] [place], [address] Lipid Profileon 01-20-2025 CHOL:HDL 2.89 Normal [facility] Comment on above: Performed By: #### L 501.9520, L503.7505, L500.4100 ####[facility] [address] [place], [address] Cholesterol [Mass/Vol] 140 mg/dL Normal <=200 [facility] Comment on above: Result Comment: Chol esterol level, Desirable <200 mg/dLBorderline high cholesterol 200-239 mg/dLHigh cholesterol >=240 mg/dLRecommendations of the NCEP Adult Treatment Panel for thefollowing risk-cutoff thresholds for the [place] Americanpopulation. Performed By: #### L 501.9520, L503.7505, L500.4100 ####[facility] [address] [place], [address] Cholesterol in HDL [Mass/Vol] 49 mg/dL Normal [facility] Comment on above: Result Comment: Camelia onal Cholesterol Education Program (NCEP) guidelines:<40 mg/dL: Low HDL-cholesterol (major risk factor for CHD)>= 60 mg/dL: High HDL-cholesterol (negative risk factor forCHD)HDL-cholesterol is affected by a number of factors, e.g.smoking, exercise, hormones, sex and age. Performed By: #### L 501.9520, L503.7505, L500.4100 ####[facility] [address] [place], [address] Cholesterol in LDL [Mass/Vol] 79 mg/dL Normal [facility] Comment on above: Result Comment: Bord gzmjko=191-239 mg/dL Higher Zfkl=500 mg/dL or greater Performed By: #### L 501.9520, L503.7505, L500.4100 ####[facility] [address] [place], [address] Cholesterol in VLDL [Mass/Vol] 12 mg/dL Normal 5-40 [facility] Comment on above: Performed By: #### L 501.9520, L503.7505, L500.4100 ####[facility] [address] [place], [address] Triglyceride [Mass/Vol] 62 mg/dL Normal [facility] Comment on above: Result Comment: The drugs N-Acetylcysteine and Metamizole may falselydepress this assay.Normal range: <150 mg/dLBorderline High: 150-199 mg/dLHigh: 200-499 mg/dLVery High: >500 mg/dL Performed By: #### L 501.9520, L503.7505, L500.4100 ####[facility] [address] [place], [address] Measurement, pHOrdered By: Connor Borden on 01-20-2025 pH (Unsp spec) 7.38 [pH] 7.35-7.45 [facility] Mucus LM Ql (Urine sed)Order ed By: Jeevan Yoder on 01-20-2025 Mucus Ql (Urine sed) 0 SEEN /hpf [facility] Nitrite Test strip Ql (U)Ord ered By: Jeevan Yoder on 01-20-2025 Nitrite Ql (U) Negative Negative [facility] No Panel InformationOrdered By: Lucio Borden on 01-20-2025 ART [facility] R Radial [facility] ST [facility] BiPAP [facility] 500.0 mL [facility] 14 [facility] 8 [facility] 16:55:40 [facility] Yes [facility] No Panel InformationOrdered By: Jeevan Yoder on 01-20-2025 See comment [facility] 81 U/L High <32 [facility] Partial Thromboplast Timeon 01-20-2025 aPTT Coag (Bld) [Time] 26.9 s Normal 24.1-36.2 [facility] Comment on above: Performed By: #### L 300.4310, L100.0100, L300.3900, L501.4021, L503.6005, L500.4050, M200.1000 ####[facility] [address] [place], [place], [id number] Protein Test strip Ql (U)Ord ered By: Jeevan Yoder on 01-20-2025 Protein Ql (U) 100 mg/dl High Negative [facility] Prothrombin Time w/INRon INR Coag (PPP) [Relative time] 1.1 {INR} Normal [facility] Comment on above: Performed By: #### L 300.4310, L100.0100, L300.3900, L501.4021, L503.6005, L500.4050, M200.1000 ####[facility] [address] [place], [address] PT Coag (PPP) [Time] 14.6 s Normal 11.7-14.9 [facility] Comment on above: Performed By: #### L 300.4310, L100.0100, L300.3900, L501.4021, L503.6005, L500.4050, M200.1000 ####[facility] [address] [place], [place], [id number] Prothrombin timeOrdered By: Jeevan Yoder on 01-20-2025 PT Coag (PPP) [Time] 14.6 s 11.7-14.9 [facility] RESPIRATORY PANEL MOLECULARo n 01-20-2025 RP PANEL Normal [facility] Comment on above: Performed By: #### M 100.638 ####[facility] [address] [place], [place], [address] Respiratory pathogens detect ion panel by molecular detection methodOrdered By: Sandeep Marie on 01-20-2025 Respiratory pathogens DNA and RNA panel BEBETO+probe (Resp) [facility] Serum globulin measurementOr dered By: Jeevan Yoder on 01-20-2025 Globulin (S) [Mass/Vol] 4.1 g/dL 2.2-4.2 [facility] Serum or plasma alanine kelley otransferase (ALT) measurementOrdered By: Jeevan Yoder on 01-20-2025 ALT [Catalytic activity/Vol] 36 U/L High <35 [facility] Serum or plasma albumin melanie urement (mass/volume)Ordered By: Jeevan Yoder on 01-20-2025 Albumin [Mass/Vol] 3.6 g/dL 3.4-4.8 [facility] Serum or plasma albumin/glob ulin mass ratioOrdered By: Jeevan Yoder on 01-20-2025 Albumin/Globulin [Mass ratio] 0.9 {ratio} 0.9-2.4 [facility] Serum or plasma alkaline lissa sphatase measurementOrdered By: Jeevan Yoder on 01-20-2025 ALP [Catalytic activity/Vol] 143 U/L High 35-104 [facility] Serum or plasma cholesterol in HDL measurement (mass/volume)Ordered By: Sandeep Marie on 01-20-2025 Cholesterol in HDL [Mass/Vol] 49 mg/dL >40 [facility] Serum or plasma cholesterol measurement (mass/volume)Ordered By: Sandeep Marie on 01-20-2025 Cholesterol [Mass/Vol] 140 mg/dL <201 [facility] Squamous epithelial cells de tection in urine sediment by light microscopyOrdered By: Jeevan Yoder on 01-20-2025 Epithelial cells.squamous LM Ql (Urine sed) 5-10 SEEN /hpf 5-10 [facility] Strep pneumoniae Antig(UR,CS F)on 01-20-2025 STPAG Normal [facility] Comment on above: Performed By: #### M 300.4600, M300.4500 ####[facility] [address] [place], [place], [id number] TSH DL <= 0.005 mIU/L QnOrde red By: Sandeep Marie on 01-20-2025 TSH Qn 0.492 uIU/mL 0.300-4.200 [facility] Thyroid Stim Hormone (TSH)on 01-20-2025 TSH 0.492 uIU/mL Normal 0.300-4.200 [facility] Comment on above: Performed By: #### L 501.9520, L503.7505, L500.4100 ####[facility] [address] [place], [place], [id number] Total carbon dioxide measure mentOrdered By: Lucio Borden on 01-20-2025 CO2 [Moles/Vol] 37 mmol/L [facility] Total proteinOrdered By: Maeve Yoder on 01-20-2025 Protein [Mass/Vol] 7.6 g/dL 5.9-8.4 [facility] Troponin T.cardiac [Mass/vol ume] in Serum or Plasma by High sensitivity methodOrdered By: Jeevan Yoder on 01-20-2025 Troponin T.cardiac High sensitivity method [Mass/Vol] 94 ng/L High <14 [facility] Troponin T.cardiac High sensitivity method [Mass/Vol] 71 ng/L High <14 [facility] Troponin T.cardiac High sensitivity method [Mass/Vol] 52 ng/L High <14 [facility] Urinalysis, Completeon 01-20 EPI,SQUAMOUS 5-10 SEEN Normal 5-10 [facility] Comment on above: Order Comment: MARSHALL CTOR TO SPECIFY Performed By: #### L 400.0001 ####[facility] [address] [place], [address] RBC 5-10 SEEN Normal 0-5 [facility] Comment on above: Order Comment: MARSHALL CTOR TO SPECIFY Performed By: #### L 400.0001 ####[facility] [address] [place], [address] WBC 0-5 SEEN Normal 0-5 [facility] Comment on above: Order Comment: MARSHALL CTOR TO SPECIFY Performed By: #### L 400.0001 ####[facility] [address] [place], [address] BACTERIA 0 SEEN Normal None Seen [facility] Comment on above: Order Comment: MARSHALL CTOR TO SPECIFY Performed By: #### L 400.0001 ####[facility] [address] [place], [address] Mucus Ql (Urine sed) 0 SEEN Normal [facility] Comment on above: Order Comment: MARSHALL CTOR TO SPECIFY Performed By: #### L 400.0001 ####[facility] [address] [place], [address] Urine Legionella pneumophila antigen detectionOrdered By: Sandeep Marie on 01-20-2025 L. pneumophila Ag Ql (U) [facility] Urine clarityOrdered By: Maeve Yoder on 01-20-2025 Clarity (U) Clear Clear [facility] Urine color determinationOrd ered By: Jeevan Yoder on 01-20-2025 Color (U) Straw Yellow [facility] Urine cultureOrdered By: Maeve Yoder on 01-20-2025 Bacteria identified Cx Nom (U) Proteus mirabilis Abnormal [facility] Urine glucose detectionOrder ed By: Jeevan Yoder on 01-20-2025 Glucose Ql (U) 1000 mg/dl High Normal [facility] Urine leukocyte esterase det ection by dipstickOrdered By: Jeevan Yoder on 01-20-2025 Leukocyte esterase Test strip Ql (U) Negative Negative [facility] Urine pHOrdered By: Jeevan rai on 01-20-2025 pH (U) 6.0 [pH] 5.0 - 8.0 [facility] Urine sediment bacteria coun t by microscopy (number/high power field)Ordered By: Jeevan Yoder on 01-20-2025 Bacteria LM.HPF (Urine sed) [#/Area] 0 /[HPF] None Seen [facility] Urine specific gravity measu rementOrdered By: Jeevan Yoder on 01-20-2025 Specific gravity (U) [Rel density] 1.010 1.002-1.030 [facility] Urine urobilinogen measureme ntOrdered By: Jeevan Yoder on 01-20-2025 Urobilinogen Ql (U) Normal mg/dl Normal [facility] White blood cell countOrdere d By: Jeevan Yoder on 01-20-2025 White blood cell count 0-5 SEEN /hpf 0-5 [facility] Anion gap in Serum or Plasma Ordered By: Ramone Smiley on 01-19-2025 Anion gap [Moles/Vol] 14 mmol/L 5-15 [facility] BUN/creatinine ratioOrdered By: Ramone Smiley on 01-19-2025 Urea nitrogen/Creatinine [Mass ratio] 7.7 mg/mg Low 10-20 [facility] Bilirubin, totalOrdered By: Ramone Smiley on 01-19-2025 Bilirubin [Mass/Vol] 0.25 mg/dL 0.00-1.30 [facility] CBC-Complete Blood Cnt No Di ffon 01-19-2025 Erythrocyte distribution width (RBC) [Ratio] 16.0 % High 11.6-14.6 [facility] Comment on above: Order Comment: Order Date: 01/19/25Order Info: [id number] - CBC Performed By: #### L 500.4050, L501.5200, L100.0500 ####[facility] [address] [place], [place], [id number] Hematocrit (Bld) [Volume fraction] 35.3 % Low 37-47 [facility] Comment on above: Order Comment: Order Date: 01/19/25Order Info: [id number] - CBC Performed By: #### L 500.4050, L501.5200, L100.0500 ####[facility] [address] [place], [address] Hemoglobin (Bld) [Mass/Vol] 10.9 g/dL Low 12.0-15.0 [facility] Comment on above: Order Comment: Order Date: 01/19/25Order Info: [id number] - CBC Performed By: #### L 500.4050, L501.5200, L100.0500 ####[facility] [address] [place], [address] MCH (RBC) [Entitic mass] 27.7 pg Normal 27.0-32.0 [facility] Comment on above: Order Comment: Order Date: 01/19/25Order Info: [id number] - CBC Performed By: #### L 500.4050, L501.5200, L100.0500 ####[facility] [address] [place], [address] MCHC (RBC) [Mass/Vol] 30.9 g/dL Low 32-36 [facility] Comment on above: Order Comment: Order Date: 01/19/25Order Info: [id number] - CBC Performed By: #### L 500.4050, L501.5200, L100.0500 ####[facility] [address] [place], [address] MCV (RBC) [Entitic vol] 89.6 fL Normal 81-99 [facility] Comment on above: Order Comment: Order Date: 01/19/25Order Info: [id number] - CBC Performed By: #### L 500.4050, L501.5200, L100.0500 ####[facility] [address] [place], [address] Platelet mean volume (Bld) [Entitic vol] 11.6 fL Normal 6.2-12.0 [facility] Comment on above: Order Comment: Order Date: 01/19/25Order Info: [id number] - CBC Performed By: #### L 500.4050, L501.5200, L100.0500 ####[facility] [address] [place], [address] Platelets (Bld) [#/Vol] 253 10*3/uL Normal 150-450 [facility] Comment on above: Order Comment: Order Date: 01/19/25Order Info: [id number] - CBC Performed By: #### L 500.4050, L501.5200, L100.0500 ####[facility] [address] [place], [address] RBC (Bld) [#/Vol] 3.94 10*6/uL Low 4.2-5.4 [facility] Comment on above: Order Comment: Order Date: 01/19/25Order Info: [id number] - CBC Performed By: #### L 500.4050, L501.5200, L100.0500 ####[facility] [address] [place], [address] RDW SD 52.7 fl High 35.1-43.9 [facility] Comment on above: Order Comment: Order Date: 01/19/25Order Info: [id number] - CBC Performed By: #### L 500.4050, L501.5200, L100.0500 ####[facility] [address] [place], [address] WBC (Bld) [#/Vol] 8.3 10*3/uL Normal 4.4-11.0 [facility] Comment on above: Order Comment: Order Date: 01/19/25Order Info: [id number] - CBC Performed By: #### L 500.4050, L501.5200, L100.0500 ####[facility] [address] [place], [address] Carbon dioxide, total [Moles /volume] in Central venous bloodOrdered By: Ramone Smiley on 01-19-2025 CO2 [Moles/Vol] 27.2 mmol/L 21.0-32.0 [facility] Chloride assayOrdered By: Richar Smiley on 01-19-2025 Chloride [Moles/Vol] 96 mmol/L Low 98-108 [facility] Comprehensive Metabolic Prof ilon 01-19-2025 Albumin [Mass/Vol] 3.4 g/dL Normal 3.4-4.8 [facility] Comment on above: Order Comment: Order Date: 01/19/25Order Info: [id number] - CMPOrder Info: [id number] - MG Performed By: #### L 500.4050, L501.5200, L100.0500 ####[facility] [address] [place], [address] Albumin/Globulin [Mass ratio] 0.9 {ratio} Normal 0.9-2.4 [facility] Comment on above: Order Comment: Order Date: 01/19/25Order Info: [id number] - CMPOrder Info: [id number] - MG Performed By: #### L 500.4050, L501.5200, L100.0500 ####[facility] [address] [place], [address] ALK PHOS 123 U/L High 35-104 [facility] Comment on above: Order Comment: Order Date: 01/19/25Order Info: [id number] - CMPOrder Info: [id number] - MG Performed By: #### L 500.4050, L501.5200, L100.0500 ####[facility] [address] [place], [address] ALT [Catalytic activity/Vol] 18 U/L Normal <=34 [facility] Comment on above: Order Comment: Order Date: 01/19/25Order Info: [id number] - CMPOrder Info: [id number] - MG Performed By: #### L 500.4050, L501.5200, L100.0500 ####[facility] [address] [place], [address] AST [Catalytic activity/Vol] 25 U/L Normal <=31 [facility] Comment on above: Order Comment: Order Date: 01/19/25Order Info: [id number] - CMPOrder Info: [id number] - MG Performed By: #### L 500.4050, L501.5200, L100.0500 ####[facility] [address] [place], [address] Bilirubin [Mass/Vol] 0.25 mg/dL Normal 0.00-1.30 [facility] Comment on above: Order Comment: Order Date: 01/19/25Order Info: [id number] - CMPOrder Info: [id number] - MG Performed By: #### L 500.4050, L501.5200, L100.0500 ####[facility] [address] [place], [address] BUN/CRE 7.7 RATIO Low 10-20 [facility] Comment on above: Order Comment: Order Date: 01/19/25Order Info: [id number] - CMPOrder Info: [id number] - MG Performed By: #### L 500.4050, L501.5200, L100.0500 ####[facility] [address] [place], [address] Calcium [Mass/Vol] 10.4 mg/dL Normal 7.6-11.0 [facility] Comment on above: Order Comment: Order Date: 01/19/25Order Info: [id number] - CMPOrder Info: [id number] - MG Performed By: #### L 500.4050, L501.5200, L100.0500 ####[facility] [address] [place], [address] Chloride [Moles/Vol] 96 mmol/L Low 98-108 [facility] Comment on above: Order Comment: Order Date: 01/19/25Order Info: [id number] - CMPOrder Info: [id number] - MG Performed By: #### L 500.4050, L501.5200, L100.0500 ####[facility] [address] [place], [address] CO2 [Moles/Vol] 27.2 mmol/L Normal 21.0-32.0 [facility] Comment on above: Order Comment: Order Date: 01/19/25Order Info: [id number] - CMPOrder Info: [id number] - MG Performed By: #### L 500.4050, L501.5200, L100.0500 ####[facility] [address] [place], [address] Creatinine [Mass/Vol] 1.06 mg/dL Normal 0.70-1.20 [facility] Comment on above: Order Comment: Order Date: 01/19/25Order Info: [id number] - CMPOrder Info: [id number] - MG Performed By: #### L 500.4050, L501.5200, L100.0500 ####[facility] [address] [place], [address] GAP 14 Normal 5-15 [facility] Comment on above: Order Comment: Order Date: 01/19/25Order Info: [id number] - CMPOrder Info: [id number] - MG Performed By: #### L 500.4050, L501.5200, L100.0500 ####[facility] [address] [place], [address] GFR/1.73 sq M.predicted among non-blacks MDRD (S/P/Bld) [Vol rate/Area] 53 mL/min/{1.73_m2} Low >60 [facility] Comment on above: Order Comment: Order Date: 01/19/25Order Info: [id number] - CMPOrder Info: [id number] - MG Result Comment: mL/m in/1.73m2 CKD-EPI Creatinine Equation (2020) Performed By: #### L 500.4050, L501.5200, L100.0500 ####[facility] [address] [place], [address] Globulin (S) [Mass/Vol] 3.9 g/dL Normal 2.2-4.[address] [facility] Comment on above: Order Comment: Order Date: 01/19/25Order Info: [id number] - CMPOrder Info: [id number] - MG Performed By: #### L 500.4050, L501.5200, L100.0500 ####[facility] [address] [place], [address] Glucose [Mass/Vol] 288 mg/dL High 70-99 [facility] Comment on above: Order Comment: Order Date: 01/19/25Order Info: [id number] - CMPOrder Info: [id number] - MG Performed By: #### L 500.4050, L501.5200, L100.0500 ####[facility] [address] [place], [address] Potassium [Moles/Vol] 3.3 mmol/L Normal 3.3-5.1 [facility] Comment on above: Order Comment: Order Date: 01/19/25Order Info: [id number] - CMPOrder Info: [id number] - MG Performed By: #### L 500.4050, L501.5200, L100.0500 ####[facility] [address] [place], [address] Sodium [Moles/Vol] 137 mmol/L Normal 133-145 [facility] Comment on above: Order Comment: Order Date: 01/19/25Order Info: [id number] - CMPOrder Info: [id number] - MG Performed By: #### L 500.4050, L501.5200, L100.0500 ####[facility] [address] [place], [place], [address] T PROT 7.3 g/dL Normal 5.9-8.4 [facility] Comment on above: Order Comment: Order Date: 01/19/25Order Info: [id number] - CMPOrder Info: [id number] - MG Performed By: #### L 500.4050, L501.5200, L100.0500 ####[facility] [address] [place], [address] Urea nitrogen [Mass/Vol] 8 mg/dL Normal 4-19 [facility] Comment on above: Order Comment: Order Date: 01/19/25Order Info: [id number] - CMPOrder Info: [id number] - MG Performed By: #### L 500.4050, L501.5200, L100.0500 ####[facility] [address] [place], [place], [address] Erythrocyte distribution wid th ratioOrdered By: Ramone Smiley on 01-19-2025 Erythrocyte distribution width (RBC) [Ratio] 16.0 % High 11.6-14.6 [facility] Erythrocyte distribution wid th standard deviationOrdered By: Ramone Smiley on 01-19-2025 Erythrocyte distribution width (RBC) [Ratio] 52.7 fl High 35.1-43.9 [facility] Glomerular filtration rate ( GFR) estimation/1.73 sq m using serum, plasma, or whole bOrdered By: Ramone Smiley on 01-19-2025 GFR/1.73 sq M.predicted among non-blacks MDRD (S/P/Bld) [Vol rate/Area] 53 mL/min/{1.73_m2} Low >60 [facility] Hematocrit Auto (Bld) [Volum e fraction]Ordered By: Ramone Smiley on 01-19-2025 Hematocrit (Bld) [Volume fraction] 35.3 % Low 37-47 [facility] Hemoglobin measurementOrdere d By: Ramone Smiley on 01-19-2025 Hemoglobin (Bld) [Mass/Vol] 10.9 g/dL Low 12.0-15.0 [facility] L503.7505on 01-19-2025 Natriuretic peptide B (Bld) [Mass/Vol] 3173 pg/mL High <=1800 [facility] Comment on above: Order Comment: Order Date: 01/19/25Order Info: [id number] - CMPOrder Info: [id number] - MG Result Comment: Hear t Failure Unlikely: < 300 pg/mLHeart Failure Likely< 50 Years: > 450 pg/mL50-75 Years: > 900 pg/mL>75 Years: > 1800 pg/mL Performed By: #### L 503.7505 ####[facility] [address] [place], [place], [address] MCV (mean corpuscular volume ) determinationOrdered By: Ramone Smiley on 01-19-2025 MCV (RBC) [Entitic vol] 89.6 fL 81-99 [facility] Magnesiumon 01-19-2025 Magnesium [Mass/Vol] 2.3 mg/dL High 1.5-2.2 [facility] Comment on above: Order Comment: Order Date: 01/19/25Order Info: [id number] - CMPOrder Info: [id number] - MG Performed By: #### L 500.4050, L501.5200, L100.0500 ####[facility] [address] [place], [place], [address] Magnesium measurement (mass/ volume)Ordered By: Ramone Smiley on 01-19-2025 Magnesium (Unsp spec) [Mass/Vol] 2.3 mg/dL High 1.5-2.2 [facility] Mean corpuscular hemoglobin (MCH) determinationOrdered By: Ramone Smiley on 01-19-2025 MCH (RBC) [Entitic mass] 27.7 pg 27.0-32.0 [facility] Natriuretic peptide.B prohor hayley N-Terminal [Mass/volume] in Serum or PlasmaOrdered By: Ramone Smiley on 01-19-2025 Natriuretic peptide.B prohormone N-Terminal [Mass/Vol] 3173 pg/mL High <1800 [facility] No Panel InformationOrdered By: Ramone Smiley on 01-19-2025 25 U/L <32 [facility] Platelet countOrdered By: Richar Smiley on 01-19-2025 Platelets (Bld) [#/Vol] 253 10*3/uL 150-450 [facility] Potassium measurement (mass/ volume)Ordered By: Ramone Smiley on 01-19-2025 Potassium (Unsp spec) [Mass/Vol] 3.3 mmol/L 3.3-5.1 [facility] RBC Auto (Bld) [#/Vol]Ordere d By: Ramone Smiley on 01-19-2025 RBC (Bld) [#/Vol] 3.94 10*6/uL Low 4.2-5.4 [facility] Serum creatinine measurement (mass/volume)Ordered By: Ramone Smiley on 01-19-2025 Creatinine [Mass/Vol] 1.06 mg/dL 0.70-1.20 [facility] Serum globulin measurementOr dered By: Ramone Smiley on 01-19-2025 Globulin (S) [Mass/Vol] 3.9 g/dL 2.2-4.[address] [facility] Serum glucose measurement (m ass/volume)Ordered By: Ramone Smiley on 01-19-2025 Glucose [Mass/Vol] 288 mg/dL High 70-99 [facility] Serum or plasma alanine kelley otransferase (ALT) measurementOrdered By: Ramone Smiley on 01-19-2025 ALT [Catalytic activity/Vol] 18 U/L <35 [facility] Serum or plasma albumin melanie urement (mass/volume)Ordered By: Ramone Smiley on 01-19-2025 Albumin [Mass/Vol] 3.4 g/dL 3.4-4.8 [facility] Serum or plasma albumin/glob ulin mass ratioOrdered By: Ramone Smiley on 01-19-2025 Albumin/Globulin [Mass ratio] 0.9 {ratio} 0.9-2.4 [facility] Serum or plasma alkaline lissa sphatase measurementOrdered By: Ramone Smiley on 01-19-2025 ALP [Catalytic activity/Vol] 123 U/L High 35-104 [facility] Serum or plasma calcium melanie urement (mass/volume)Ordered By: Ramone Smiley on 01-19-2025 Calcium [Mass/Vol] 10.4 mg/dL 7.6-11.0 [facility] Serum or plasma urea nitroge n measurement (mass/volume)Ordered By: Ramone Smiley on 01-19-2025 Urea nitrogen [Mass/Vol] 8 mg/dL 4-19 [facility] Sodium levelOrdered By: Ramone Smiley on 01-19-2025 Sodium [Moles/Vol] 137 mmol/L 133-145 [facility] Total proteinOrdered By: Lilliam Smiley on 01-19-2025 Protein [Mass/Vol] 7.3 g/dL 5.9-8.4 [facility] White blood cell (WBC) count Ordered By: Ramone Smiley on 01-19-2025 WBC (Bld) [#/Vol] 8.3 10*3/uL 4.4-11.0 [facility] 12 Lead EKGon 01-15-2025 12 Lead EKG Normal [facility] Absolute lymphocyte countOrd ered By: Jeevan Yoder on 01-15-2025 Lymphocytes Auto (Unsp spec) [#/Vol] 1.92 10*3/uL 0.83-4.51 [facility] Absolute neutrophil countOrd ered By: Jeevan Yoder on 01-15-2025 Neutrophils (Bld) [#/Vol] 7.7 10*3/uL 2.0-7.7 [facility] Anion gap in Serum or Plasma Ordered By: Jeevan Yoder on 01-15-2025 Anion gap [Moles/Vol] 11 mmol/L 5-15 [facility] Automated lymphocyte count a s percentage of total leukocytesOrdered By: Jeevan Yoder on 01-15-2025 Lymphocytes/100 WBC Auto (Unsp spec) 18.1 % Low 19-41 [facility] BUN/creatinine ratioOrdered By: Jeevan Yoder on 01-15-2025 Urea nitrogen/Creatinine [Mass ratio] 16.6 mg/mg 10- [facility] Basic Metabolic Profile (BMP )on 01-15-2025 BUN/CRE 16.6 RATIO Normal - [facility] Comment on above: Performed By: #### L 501.4021, L500.2500, L100.0100 ####[facility] [address] [place], [address] Calcium [Mass/Vol] 9.6 mg/dL Normal 7.6-11.0 [facility] Comment on above: Performed By: #### L 501.4021, L500.2500, L100.0100 ####[facility] [address] [place], [address] Chloride [Moles/Vol] 102 mmol/L Normal 98-108 [facility] Comment on above: Performed By: #### L 501.4021, L500.2500, L100.0100 ####[facility] [address] [place], [address] CO2 [Moles/Vol] 25.0 mmol/L Normal 21.0-32.0 [facility] Comment on above: Performed By: #### L 501.4021, L500.2500, L100.0100 ####[facility] [address] [place], [address] Creatinine [Mass/Vol] 0.92 mg/dL Normal 0.70-1.20 [facility] Comment on above: Performed By: #### L 501.4021, L500.2500, L100.0100 ####[facility] [address] [place], [address] ECRCL 48.84 ml/min Low 50-250 [facility] Comment on above: Performed By: #### L 501.4021, L500.2500, L100.0100 ####[facility] [address] [place], [address] GAP 11 Normal 5-15 [facility] Comment on above: Performed By: #### L 501.4021, L500.2500, L100.0100 ####[facility] [address] [place], [address] GFR/1.73 sq M.predicted among non-blacks MDRD (S/P/Bld) [Vol rate/Area] 63 mL/min/{1.73_m2} Normal >60 [facility] Comment on above: Result Comment: mL/m in/1.73m2 CKD-EPI Creatinine Equation (2020) Performed By: #### L 501.4021, L500.2500, L100.0100 ####[facility] [address] [place], [address] Glucose [Mass/Vol] 144 mg/dL High 70-99 [facility] Comment on above: Performed By: #### L 501.4021, L500.2500, L100.0100 ####[facility] [address] [place], [address] Potassium [Moles/Vol] 3.7 mmol/L Normal 3.3-5.1 [facility] Comment on above: Performed By: #### L 501.4021, L500.2500, L100.0100 ####[facility] [address] [place], [address] Sodium [Moles/Vol] 138 mmol/L Normal 133-145 [facility] Comment on above: Performed By: #### L 501.4021, L500.2500, L100.0100 ####[facility] [address] [place], [address] Urea nitrogen [Mass/Vol] 15 mg/dL Normal 4-19 [facility] Comment on above: Performed By: #### L 501.4021, L500.2500, L100.0100 ####[facility] [address] [place], [address] Basophil percentageOrdered B y: Jeevan Yoder on 01-15-2025 Basophils/100 WBC (Bld) 0.3 % 0-1 [facility] CBC W/Diff, Automatedon 12-29 Absolute Lymph 1.92 X10 3/uL Normal 0.83-4.51 [facility] Comment on above: Performed By: #### L 501.4021, L500.2500, L100.0100 ####[facility] [address] [place], [address] Absolute Neut 7.7 X10 3/uL Normal 2.0-7.7 [facility] Comment on above: Performed By: #### L 501.4021, L500.2500, L100.0100 ####[facility] [address] [place], [address] Basophils/100 WBC (Bld) 0.3 % Normal 0-1 [facility] Comment on above: Performed By: #### L 501.4021, L500.2500, L100.0100 ####[facility] [address] [place], [address] Eosinophils/100 WBC (Bld) 1.6 % Normal 0-5 [facility] Comment on above: Performed By: #### L 501.4021, L500.2500, L100.0100 ####[facility] [address] [place], [address] Erythrocyte distribution width (RBC) [Ratio] 16.3 % High 11.6-14.6 [facility] Comment on above: Performed By: #### L 501.4021, L500.2500, L100.0100 ####[facility] [address] [place], [address] Hematocrit (Bld) [Volume fraction] 34.3 % Low 37-47 [facility] Comment on above: Performed By: #### L 501.4021, L500.2500, L100.0100 ####[facility] [address] [place], [address] Hemoglobin (Bld) [Mass/Vol] 11.0 g/dL Low 12.0-15.0 [facility] Comment on above: Performed By: #### L 501.4021, L500.2500, L100.0100 ####[facility] [address] [place], [address] IG% 0.400 Normal 0.0-0.9 [facility] Comment on above: Result Comment: IG% - Immature Granulocytes (promyelocytes, myelocytes andmetamyelocytes) > 1% indicates that a LEFT SHIFT is Present. Performed By: #### L 501.4021, L500.2500, L100.0100 ####[facility] [address] [place], [address] Lymphocytes/100 WBC (Bld) 18.1 % Low 19-41 [facility] Comment on above: Performed By: #### L 501.4021, L500.2500, L100.0100 ####[facility] [address] [place], [address] MCH (RBC) [Entitic mass] 27.8 pg Normal 27.0-32.0 [facility] Comment on above: Performed By: #### L 501.4021, L500.2500, L100.0100 ####[facility] [address] [place], [address] MCHC (RBC) [Mass/Vol] 32.1 g/dL Normal 32-36 [facility] Comment on above: Performed By: #### L 501.4021, L500.2500, L100.0100 ####[facility] [address] [place], [address] MCV (RBC) [Entitic vol] 86.6 fL Normal 81-99 [facility] Comment on above: Performed By: #### L 501.4021, L500.2500, L100.0100 ####[facility] [address] [place], [address] Monocytes/100 WBC (Bld) 6.9 % Normal 0-10 [facility] Comment on above: Performed By: #### L 501.4021, L500.2500, L100.0100 ####[facility] [address] [place], [address] Neutrophils/100 WBC (Bld) 72.7 % High 47-70 [facility] Comment on above: Performed By: #### L 501.4021, L500.2500, L100.0100 ####[facility] [address] [place], [address] Nucleated RBC (Bld) [#/Vol] 0 10*3/uL Normal 0-5 [facility] Comment on above: Performed By: #### L 501.4021, L500.2500, L100.0100 ####[facility] [address] [place], [address] Platelet mean volume (Bld) [Entitic vol] 10.5 fL Normal 6.2-12.0 [facility] Comment on above: Performed By: #### L 501.4021, L500.2500, L100.0100 ####[facility] [address] [place], [address] Platelets (Bld) [#/Vol] 256 10*3/uL Normal 150-450 [facility] Comment on above: Performed By: #### L 501.4021, L500.2500, L100.0100 ####[facility] [address] [place], [address] RBC (Bld) [#/Vol] 3.96 10*6/uL Low 4.2-5.4 [facility] Comment on above: Performed By: #### L 501.4021, L500.2500, L100.0100 ####[facility] [address] [place], [address] RDW SD 50.8 fl High 35.1-43.9 [facility] Comment on above: Performed By: #### L 501.4021, L500.2500, L100.0100 ####[facility] [address] [place], [address] WBC (Bld) [#/Vol] 10.6 10*3/uL Normal 4.4-11.0 [facility] Comment on above: Performed By: #### L 501.4021, L500.2500, L100.0100 ####[facility] [address] [place], [address] Carbon dioxide, total [Moles /volume] in Central venous bloodOrdered By: Jeevan Yoder on 01-15-2025 CO2 [Moles/Vol] 25.0 mmol/L 21.0-32.0 [facility] Chest PA and Lateralon 01-15 Chest PA and Lateral Normal [facility] Chloride assayOrdered By: Kenny Yoder on 01-15-2025 Chloride [Moles/Vol] 102 mmol/L 98-108 [facility] Emergency Department Summary on 01-15-2025 Emergency Department Summary Normal [facility] Eosinophil percentageOrdered By: Jeevan Yoder on 01-15-2025 Eosinophils/100 WBC (Bld) 1.6 % 0-5 [facility] Erythrocyte distribution wid th ratioOrdered By: Jeevan Yoder on 01-15-2025 Erythrocyte distribution width (RBC) [Ratio] 16.3 % High 11.6-14.6 [facility] Erythrocyte distribution wid th standard deviationOrdered By: Jeevan Yoder on 01-15-2025 Erythrocyte distribution width (RBC) [Ratio] 50.8 fl High 35.1-43.9 [facility] Glomerular filtration rate ( GFR) estimation/1.73 sq m using serum, plasma, or whole bOrdered By: Jeevan Yoder on 01-15-2025 GFR/1.73 sq M.predicted among non-blacks MDRD (S/P/Bld) [Vol rate/Area] 63 mL/min/{1.73_m2} >60 [facility] Comment on above: mL/min/1.73m2 CKD-EP I Creatinine Equation (2020) Hematocrit Auto (Bld) [Volum e fraction]Ordered By: Jeevan Yoder on 01-15-2025 Hematocrit (Bld) [Volume fraction] 34.3 % Low 37-47 [facility] Hemoglobin measurementOrdere d By: Jeevan Yoder on 01-15-2025 Hemoglobin (Bld) [Mass/Vol] 11.0 g/dL Low 12.0-15.0 [facility] Immature granulocytes/100 WB C Auto (Bld)Ordered By: Jeevan Yoder on 01-15-2025 Immature granulocytes/100 WBC (Bld) 0.400 % 0.0-0.9 [facility] Comment on above: IG% - Immature Granu locytes (promyelocytes, myelocytes and metamyelocytes) > 1% indicates that a LEFT SHIFT is Present. L499.0042on 01-15-2025 Trop T High Sen 46 ng/L High <=14 [facility] Comment on above: Performed By: #### L 499.0042 ####[facility] [address] [place], [address] L499.0043on 01-15-2025 Trop T High Sen Normal <=14 [facility] Comment on above: Result Comment: DEP ED Performed By: #### L 499.0043 ####[facility] [address] [place], [address] L501.4021on 01-15-2025 Trop T High Sen 46 ng/L High <=14 [facility] Comment on above: Performed By: #### L 501.4021, L500.2500, L100.0100 ####[facility] [address] [place], [address] L503.7505on 01-15-2025 Natriuretic peptide B (Bld) [Mass/Vol] 4224 pg/mL High <=1800 [facility] Comment on above: Result Comment: Hear t Failure Unlikely: < 300 pg/mLHeart Failure Likely< 50 Years: > 450 pg/mL50-75 Years: > 900 pg/mL>75 Years: > 1800 pg/mL Performed By: #### L 503.7505 ####[facility] [address] [place], [address] MCV (mean corpuscular volume ) determinationOrdered By: Jeevan Yoder on 01-15-2025 MCV (RBC) [Entitic vol] 86.6 fL 81-99 [facility] Mean corpuscular hemoglobin (MCH) determinationOrdered By: Jeevan Yoder on 01-15-2025 MCH (RBC) [Entitic mass] 27.8 pg 27.0-32.0 [facility] Mean corpuscular hemoglobin concentration (MCHC) determinationOrdered By: Jeevan Yoder on 01-15-2025 MCHC (RBC) [Mass/Vol] 32.1 g/dL 32-36 [facility] Mean platelet volume determi nationOrdered By: Jeevan Yoder on 01-15-2025 Platelet mean volume (Bld) [Entitic vol] 10.5 fL 6.2-12.0 [facility] Monocyte percentageOrdered B y: Jeevan Yoder on 01-15-2025 Monocytes/100 WBC (Bld) 6.9 % 0-10 [facility] Natriuretic peptide.B prohor hayley N-Terminal [Mass/volume] in Serum or PlasmaOrdered By: Jeevan Yoder on 01-15-2025 Natriuretic peptide.B prohormone N-Terminal [Mass/Vol] 4224 pg/mL High <1800 [facility] Comment on above: Heart Failure Unlike ly: < 300 pg/mLHeart Failure Likely< 50 Years: > 450 pg/mL50-75 Years: > 900 pg/mL>75 Years: > 1800 pg/mL Neutrophil percentageOrdered By: Jeevan Yoder on 01-15-2025 Neutrophils/100 WBC (Bld) 72.7 % High 47-70 [facility] Nucleated red blood cell per centageOrdered By: Jeevan Yoder on 01-15-2025 Nucleated RBC/100 WBC (Bld) [Ratio] 0 % 0-5 [facility] Platelet countOrdered By: Kenny Yoder on 01-15-2025 Platelets (Bld) [#/Vol] 256 10*3/uL 150-450 [facility] Potassium measurement (mass/ volume)Ordered By: Jeevan Yoder on 01-15-2025 Potassium (Unsp spec) [Mass/Vol] 3.7 mmol/L 3.3-5.1 [facility] RBC Auto (Bld) [#/Vol]Ordere d By: Jeevan Yoder on 01-15-2025 RBC (Bld) [#/Vol] 3.96 10*6/uL Low 4.2-5.4 [facility] Serum creatinine measurement (mass/volume)Ordered By: Jeevan Yoder on 01-15-2025 Creatinine [Mass/Vol] 0.92 mg/dL 0.70-1.20 [facility] Serum glucose measurement (m ass/volume)Ordered By: Jeevan Yoder on 01-15-2025 Glucose [Mass/Vol] 144 mg/dL High 70-99 [facility] Serum or plasma calcium melanie urement (mass/volume)Ordered By: Jeevan Yoder on 01-15-2025 Calcium [Mass/Vol] 9.6 mg/dL 7.6-11.0 [facility] Serum or plasma urea nitroge n measurement (mass/volume)Ordered By: Jeevan Yoder on 01-15-2025 Urea nitrogen [Mass/Vol] 15 mg/dL 4-19 [facility] Sodium levelOrdered By: Marcelino Yoder on 01-15-2025 Sodium [Moles/Vol] 138 mmol/L 133-145 [facility] Troponin T.cardiac [Mass/vol ume] in Serum or Plasma by High sensitivity methodOrdered By: Jeevan Yoder on 01-15-2025 Troponin T.cardiac High sensitivity method [Mass/Vol] 46 ng/L High <14 [facility] Troponin T.cardiac High sensitivity method [Mass/Vol] 46 ng/L High <14 [facility] White blood cell (WBC) count Ordered By: Jeevan Yoder on 01-15-2025 WBC (Bld) [#/Vol] 10.6 10*3/uL 4.4-11.0 [facility] 12 Lead EKGon 01-07-2025 12 Lead EKG Normal [facility] Absolute lymphocyte countOrd ered By: Ethan Suarez on 01-07-2025 Lymphocytes Auto (Unsp spec) [#/Vol] 2.89 10*3/uL 0.83-4.51 [facility] Absolute neutrophil countOrd ered By: Ethan Suarez on 01-07-2025 Neutrophils (Bld) [#/Vol] 5.3 10*3/uL 2.0-7.7 [facility] Anion gap in Serum or Plasma Ordered By: Ethan Suarez on 01-07-2025 Anion gap [Moles/Vol] 11 mmol/L 01-12 [facility] Automated lymphocyte count a s percentage of total leukocytesOrdered By: Ethan Suarez on 01-07-2025 Lymphocytes/100 WBC Auto (Unsp spec) 31.8 % [facility] BUN/creatinine ratioOrdered By: Ethan Suarez on 01-07-2025 Urea nitrogen/Creatinine [Mass ratio] 15.5 mg/mg 06-19 [facility] Basic Metabolic Profile (BMP )on 01-07-2025 BUN/CRE 15.5 RATIO Normal 06-19 [facility] Comment on above: Performed By: #### L 500.2500, L100.0100 ####[facility] [address] [place], [address] Calcium [Mass/Vol] 10.3 mg/dL Normal 7.6-11.0 [facility] Comment on above: Performed By: #### L 500.2500, L100.0100 ####[facility] [address] [place], [address] Chloride [Moles/Vol] 99 mmol/L Normal 98-108 [facility] Comment on above: Performed By: #### L 500.2500, L100.0100 ####[facility] [address] [place], [address] CO2 [Moles/Vol] 22.5 mmol/L Normal 21.0-32.0 [facility] Comment on above: Performed By: #### L 500.2500, L100.0100 ####[facility] [address] [place], [address] Creatinine [Mass/Vol] 0.90 mg/dL Normal 0.70-1.20 [facility] Comment on above: Performed By: #### L 500.2500, L100.0100 ####[facility] [address] [place], [address] ECRCL 49.31 ml/min Low 50-250 [facility] Comment on above: Performed By: #### L 500.2500, L100.0100 ####[facility] [address] [place], [address] GAP 11 Normal 5-15 [facility] Comment on above: Performed By: #### L 500.2500, L100.0100 ####[facility] [address] [place], [address] GFR/1.73 sq M.predicted among non-blacks MDRD (S/P/Bld) [Vol rate/Area] 64 mL/min/{1.73_m2} Normal >60 [facility] Comment on above: Result Comment: mL/m in/1.73m2 CKD-EPI Creatinine Equation (2020) Performed By: #### L 500.2500, L100.0100 ####[facility] [address] [place], [address] Glucose [Mass/Vol] 321 mg/dL High 70-99 [facility] Comment on above: Performed By: #### L 500.2500, L100.0100 ####[facility] [address] [place], [address] Potassium [Moles/Vol] 3.8 mmol/L Normal 3.3-5.1 [facility] Comment on above: Result Comment: Hemo lysis present, Results??could be affected.?? Performed By: #### L 500.2500, L100.0100 ####[facility] [address] [place], [address] Sodium [Moles/Vol] 133 mmol/L Normal 133-145 [facility] Comment on above: Performed By: #### L 500.2500, L100.0100 ####[facility] [address] [place], [address] Urea nitrogen [Mass/Vol] 14 mg/dL Normal 4-19 [facility] Comment on above: Performed By: #### L 500.2500, L100.0100 ####[facility] [address] [place], [address] Basophil percentageOrdered B y: Ethan Suarez on 01-07-2025 Basophils/100 WBC (Bld) 0.5 % 0-1 [facility] Bedside Glucoseon 01-07-2025 FINGERSTICK GLU 316 mg/dL High 74-106 [facility] Comment on above: Result Comment: KATARINA GARY OF PATIENT CARE PER NURSING PROTOCOL Performed By: #### L 501.080 ####[facility] [address] [place], [address] CBC W/Diff, Automatedon 12-29 0 Absolute Lymph 2.89 X10 3/uL Normal 0.83-4.51 [facility] Comment on above: Performed By: #### L 500.2500, L100.0100 ####[facility] [address] [place], [address] Absolute Neut 5.3 X10 3/uL Normal 2.0-7.7 [facility] Comment on above: Performed By: #### L 500.2500, L100.0100 ####[facility] [address] [place], [address] Basophils/100 WBC (Bld) 0.5 % Normal 0-1 [facility] Comment on above: Performed By: #### L 500.2500, L100.0100 ####[facility] [address] [place], [address] Eosinophils/100 WBC (Bld) 1.9 % Normal 0-5 [facility] Comment on above: Performed By: #### L 500.2500, L100.0100 ####[facility] [address] [place], [address] Erythrocyte distribution width (RBC) [Ratio] 15.7 % High 11.6-14.6 [facility] Comment on above: Performed By: #### L 500.2500, L100.0100 ####[facility] [address] [place], [address] Hematocrit (Bld) [Volume fraction] 34.0 % Low 37-47 [facility] Comment on above: Performed By: #### L 500.2500, L100.0100 ####[facility] [address] [place], [address] Hemoglobin (Bld) [Mass/Vol] 10.5 g/dL Low 12.0-15.0 [facility] Comment on above: Performed By: #### L 500.2500, L100.0100 ####[facility] [address] [place], [address] IG% 0.200 Normal 0.0-0.9 [facility] Comment on above: Result Comment: IG% - Immature Granulocytes (promyelocytes, myelocytes andmetamyelocytes) > 1% indicates that a LEFT SHIFT is Present. Performed By: #### L 500.2500, L100.0100 ####[facility] [address] [place], [address] Lymphocytes/100 WBC (Bld) 31.8 % Normal 19-41 [facility] Comment on above: Performed By: #### L 500.2500, L100.0100 ####[facility] [address] [place], [address] MCH (RBC) [Entitic mass] 26.9 pg Low 27.0-32.0 [facility] Comment on above: Performed By: #### L 500.2500, L100.0100 ####[facility] [address] [place], [address] MCHC (RBC) [Mass/Vol] 30.9 g/dL Low 32-36 [facility] Comment on above: Performed By: #### L 500.2500, L100.0100 ####[facility] [address] [place], [address] MCV (RBC) [Entitic vol] 87.0 fL Normal 81-99 [facility] Comment on above: Performed By: #### L 500.2500, L100.0100 ####[facility] [address] [place], [address] Monocytes/100 WBC (Bld) 7.6 % Normal 0-[address] [facility] Comment on above: Performed By: #### L 500.2500, L100.0100 ####[facility] [address] [place], [address] Neutrophils/100 WBC (Bld) 58.0 % Normal 47-70 [facility] Comment on above: Performed By: #### L 500.2500, L100.0100 ####[facility] [address] [place], [address] Nucleated RBC (Bld) [#/Vol] 0 10*3/uL Normal 0-5 [facility] Comment on above: Performed By: #### L 500.2500, L100.0100 ####[facility] [address] [place], [address] Platelet mean volume (Bld) [Entitic vol] 11.1 fL Normal 6.2-12.0 [facility] Comment on above: Performed By: #### L 500.2500, L100.0100 ####[facility] [address] [place], [address] Platelets (Bld) [#/Vol] 237 10*3/uL Normal 150-450 [facility] Comment on above: Performed By: #### L 500.2500, L100.0100 ####[facility] [address] [place], [address] RBC (Bld) [#/Vol] 3.91 10*6/uL Low 4.2-5.4 [facility] Comment on above: Performed By: #### L 500.2500, L100.0100 ####[facility] [address] [place], [address] RDW SD 49.4 fl High 35.1-43.9 [facility] Comment on above: Performed By: #### L 500.2500, L100.0100 ####[facility] [address] [place], [address] WBC (Bld) [#/Vol] 9.1 10*3/uL Normal 4.4-11.0 [facility] Comment on above: Performed By: #### L 500.2500, L100.0100 ####[facility] [address] [place], [address] Carbon dioxide, total [Moles /volume] in Central venous bloodOrdered By: Ethan Suarez on 01-07-2025 CO2 [Moles/Vol] 22.5 mmol/L 21.0-32.0 [facility] Chest PA and Lateralon 01-07 Chest PA and Lateral Normal [facility] Chloride assayOrdered By: Albaro Suarez on 01-07-2025 Chloride [Moles/Vol] 99 mmol/L 98-108 [facility] Emergency Department Summary on 01-07-2025 Emergency Department Summary Normal [facility] Eosinophil percentageOrdered By: Ethan Suarez on 01-07-2025 Eosinophils/100 WBC (Bld) 1.9 % 0-5 [facility] Erythrocyte distribution wid th ratioOrdered By: Ethan Suarez on 01-07-2025 Erythrocyte distribution width (RBC) [Ratio] 15.7 % High 11.6-14.6 [facility] Erythrocyte distribution wid th standard deviationOrdered By: Ethan Suarez on 01-07-2025 Erythrocyte distribution width (RBC) [Ratio] 49.4 fl High 35.1-43.9 [facility] Glomerular filtration rate ( GFR) estimation/1.73 sq m using serum, plasma, or whole bOrdered By: Ethan Suarez on 01-07-2025 GFR/1.73 sq M.predicted among non-blacks MDRD (S/P/Bld) [Vol rate/Area] 64 mL/min/{1.73_m2} >60 [facility] Comment on above: mL/min/1.73m2 CKD-EP I Creatinine Equation (2020) [facility] deOrdered By: Ethan Suarez on 01-07-2025 Glucose [Mass/Vol] 316 mg/dL High 74-106 [facility] Comment on above: MANAGEMENT OF PATIEN T CARE PER NURSING PROTOCOL Hematocrit Auto (Bld) [Volum e fraction]Ordered By: Ethan Suarez on 01-07-2025 Hematocrit (Bld) [Volume fraction] 34.0 % Low 37-47 [facility] Hemoglobin measurementOrdere d By: Ethan Suarez on 01-07-2025 Hemoglobin (Bld) [Mass/Vol] 10.5 g/dL Low 12.0-15.0 [facility] Immature granulocytes/100 WB C Auto (Bld)Ordered By: Ethan Suarez on 01-07-2025 Immature granulocytes/100 WBC (Bld) 0.200 % 0.0-0.9 [facility] Comment on above: IG% - Immature Granu locytes (promyelocytes, myelocytes and metamyelocytes) > 1% indicates that a LEFT SHIFT is Present. Influenza virus A and B and SARS-CoV-2 (COVID-19) and Respiratory syncytial virus RNAOrdered By: Ethan Suarez on 01-07-2025 SARS-CoV-2 (COVID-19) RNA BEBETO+probe Ql (Unsp spec) [facility] M100.678on 01-07-2025 M100.678 SARS-CoV-2 (COVID 19 ) Negative INFLUENZA A Negative INFLUENZA B Negative RSV PCR Negative Normal [facility] Comment on above: Performed By: #### M [id number] ####[facility] [facility] [address] [place], [place], [id number] MCV (mean corpuscular volume ) determinationOrdered By: Ethan Suarez on 01-07-2025 MCV (RBC) [Entitic vol] 87.0 fL 81-99 [facility] Mean corpuscular hemoglobin (MCH) determinationOrdered By: Ethan Suarez on 01-07-2025 MCH (RBC) [Entitic mass] 26.9 pg Low 27.0-32.0 [facility] Mean corpuscular hemoglobin concentration (MCHC) determinationOrdered By: Ethan Suarez on 01-07-2025 MCHC (RBC) [Mass/Vol] 30.9 g/dL Low 32-36 [facility] Mean platelet volume determi nationOrdered By: Ethan Saurez on 01-07-2025 Platelet mean volume (Bld) [Entitic vol] 11.1 fL 6.2-12.0 [facility] Monocyte percentageOrdered B y: Ethan Suarez on 01-07-2025 Monocytes/100 WBC (Bld) 7.6 % 0-10 [facility] Neutrophil percentageOrdered By: Ethan Suarez on 01-07-2025 Neutrophils/100 WBC (Bld) 58.0 % 47-70 [facility] Nucleated red blood cell per centageOrdered By: Ethan Suarez on 01-07-2025 Nucleated RBC/100 WBC (Bld) [Ratio] 0 % 0-5 [facility] Platelet countOrdered By: Albaro Suarez on 01-07-2025 Platelets (Bld) [#/Vol] 237 10*3/uL 150-450 [facility] Potassium measurement (mass/ volume)Ordered By: Ethan Suarez on 01-07-2025 Potassium (Unsp spec) [Mass/Vol] 3.8 mmol/L 3.3-5.1 [facility] Comment on above: Hemolysis present, R esults could be affected. RBC Auto (Bld) [#/Vol]Ordere d By: Ethan Suarez on 01-07-2025 RBC (Bld) [#/Vol] 3.91 10*6/uL Low 4.2-5.4 [facility] Serum creatinine measurement (mass/volume)Ordered By: Ethan Suarez on 01-07-2025 Creatinine [Mass/Vol] 0.90 mg/dL 0.70-1.20 [facility] Serum glucose measurement (m ass/volume)Ordered By: Ethan Suarez on 01-07-2025 Glucose [Mass/Vol] 321 mg/dL High 70-99 [facility] Serum or plasma calcium melanie urement (mass/volume)Ordered By: Ethan Suarez on 01-07-2025 Calcium [Mass/Vol] 10.3 mg/dL 7.6-11.0 [facility] Serum or plasma urea nitroge n measurement (mass/volume)Ordered By: Ethan Suarez on 01-07-2025 Urea nitrogen [Mass/Vol] 14 mg/dL 4-19 [facility] Sodium levelOrdered By: Ethan Suarez on 01-07-2025 Sodium [Moles/Vol] 133 mmol/L 133-145 [facility] White blood cell (WBC) count Ordered By: Ethan Suarez on 01-07-2025 WBC (Bld) [#/Vol] 9.1 10*3/uL 4.4-11.0 [facility] Inital Evaluation (1) - PTon 10-13-2024 Inital Evaluation (1) - PT Normal [facility] Albumin to globulin ratioOrd ered By: Ramone Smiley on 09-27-2024 Albumin/Globulin [Mass ratio] 0.6 {ratio} Low 0.9-2.4 [facility] Bilirubin, totalOrdered By: Ramone Smiley on 09-27-2024 Bilirubin [Mass/Vol] 0.20 mg/dL 0.20-1.00 [facility] Comment on above: For patients on eltr ombopag therapy, use of Dimension [place] TBIL is not recommended. Blood urea nitrogen (BUN)/cr eatinine ratioOrdered By: Ramone Smiley on 09-27-2024 Urea nitrogen/Creatinine [Mass ratio] 12.7 mg/mg 10-20 [facility] CBC-Complete Blood Cnt No Di ffon 09-27-2024 Erythrocyte distribution width (RBC) [Ratio] 15.9 % High 11.6-14.6 [facility] Comment on above: Order Comment: Order Date: 09/27/24Order Info: [id number] - CBC Performed By: #### L 500.4050, L100.0500 ####[facility] [address] [place], [address] Hematocrit (Bld) [Volume fraction] 35.7 % Low 37-47 [facility] Comment on above: Order Comment: Order Date: 09/27/24Order Info: [id number] - CBC Performed By: #### L 500.4050, L100.0500 ####[facility] [address] [place], [address] Hemoglobin (Bld) [Mass/Vol] 11.0 g/dL Low 12.0-15.0 [facility] Comment on above: Order Comment: Order Date: 09/27/24Order Info: [id number] - CBC Performed By: #### L 500.4050, L100.0500 ####[facility] [address] [place], [address] MCH (RBC) [Entitic mass] 25.8 pg Low 27.0-32.0 [facility] Comment on above: Order Comment: Order Date: 09/27/24Order Info: [id number] - CBC Performed By: #### L 500.4050, L100.0500 ####[facility] [address] [place], [address] MCHC (RBC) [Mass/Vol] 30.8 g/dL Low 32-36 [facility] Comment on above: Order Comment: Order Date: 09/27/24Order Info: [id number] - CBC Performed By: #### L 500.4050, L100.0500 ####[facility] [address] [place], [address] MCV (RBC) [Entitic vol] 83.6 fL Normal 81-99 [facility] Comment on above: Order Comment: Order Date: 09/27/24Order Info: [id number] - CBC Performed By: #### L 500.4050, L100.0500 ####[facility] [address] [place], [address] Platelet mean volume (Bld) [Entitic vol] 11.3 fL Normal 6.2-12.0 [facility] Comment on above: Order Comment: Order Date: 09/27/24Order Info: [id number] - CBC Performed By: #### L 500.4050, L100.0500 ####[facility] [address] [place], [address] Platelets (Bld) [#/Vol] 287 10*3/uL Normal 150-450 [facility] Comment on above: Order Comment: Order Date: 09/27/24Order Info: [id number] - CBC Performed By: #### L 500.4050, L100.0500 ####[facility] [address] [place], [address] RBC (Bld) [#/Vol] 4.27 10*6/uL Normal 4.2-5.4 [facility] Comment on above: Order Comment: Order Date: 09/27/24Order Info: [id number] - CBC Performed By: #### L 500.4050, L100.0500 ####[facility] [address] [place], [address] RDW SD 47.4 fl High 35.1-43.9 [facility] Comment on above: Order Comment: Order Date: 09/27/24Order Info: [id number] - CBC Performed By: #### L 500.4050, L100.0500 ####[facility] [address] [place], [address] WBC (Bld) [#/Vol] 8.6 10*3/uL Normal 4.4-11.0 [facility] Comment on above: Order Comment: Order Date: 09/27/24Order Info: [id number] - CBC Performed By: #### L 500.4050, L100.0500 ####[facility] [address] [place], [address] Carbon dioxide measurementOr dered By: Ramone Smiley on 09-27-2024 CO2 [Moles/Vol] 28.0 mmol/L 21.0-32.0 [facility] Chloride measurementOrdered By: Ramone Smiley on 09-27-2024 Chloride [Moles/Vol] 101 mmol/L 98-107 [facility] Comprehensive Metabolic Prof ilon 09-27-2024 Albumin [Mass/Vol] 3.0 g/dL Low 3.2-5.0 [facility] Comment on above: Order Comment: Order Date: 09/27/24Order Info: [id number] - CMPOrder Info: [id number] - CRE Performed By: #### L 500.4050, L100.0500 ####[facility] [address] [place], [address] Albumin/Globulin [Mass ratio] 0.6 {ratio} Low 0.9-2.4 [facility] Comment on above: Order Comment: Order Date: 09/27/24Order Info: [id number] - CMPOrder Info: [id number] - CRE Performed By: #### L 500.4050, L100.0500 ####[facility] [address] [place], [address] ALK P 145 U/L High 45-117 [facility] Comment on above: Order Comment: Order Date: 09/27/24Order Info: [id number] - CMPOrder Info: [id number] - CRE Performed By: #### L 500.4050, L100.0500 ####[facility] [address] [place], [address] ALT [Catalytic activity/Vol] 16 U/L Normal 13-56 [facility] Comment on above: Order Comment: Order Date: 09/27/24Order Info: [id number] - CMPOrder Info: [id number] - CRE Performed By: #### L 500.4050, L100.0500 ####[facility] [address] [place], [address] AST [Catalytic activity/Vol] 16 U/L Normal 15-37 [facility] Comment on above: Order Comment: Order Date: 09/27/24Order Info: [id number] - CMPOrder Info: [id number] - CRE Performed By: #### L 500.4050, L100.0500 ####[facility] [address] [place], [address] Bilirubin [Mass/Vol] 0.20 mg/dL Normal 0.20-1.00 [facility] Comment on above: Order Comment: Order Date: 09/27/24Order Info: [id number] - CMPOrder Info: [id number]- - CRE Result Comment: For patients on eltrombopag therapy, use of Dimension [place] TBIL is not recommended. Performed By: #### L 500.4050, L100.0500 ####[facility] [address] [place], [address] BUN/CRE 12.7 RATIO Normal 10-20 [facility] Comment on above: Order Comment: Order Date: 09/27/24Order Info: [id number] - CMPOrder Info: [id number] - CRE Performed By: #### L 500.4050, L100.0500 ####[facility] [address] [place], [address] CA,Total 11.0 mg/dL High 8.5-10.1 [facility] Comment on above: Order Comment: Order Date: 09/27/24Order Info: [id number] - CMPOrder Info: [id number] - CRE Performed By: #### L 500.4050, L100.0500 ####[facility] [address] [place], [address] Chloride [Moles/Vol] 101 mmol/L Normal 98-107 [facility] Comment on above: Order Comment: Order Date: 09/27/24Order Info: [id number] - CMPOrder Info: [id number] - CRE Performed By: #### L 500.4050, L100.0500 ####[facility] [address] [place], [address] CO2 [Moles/Vol] 28.0 mmol/L Normal 21.0-32.0 [facility] Comment on above: Order Comment: Order Date: 09/27/24Order Info: [id number] - CMPOrder Info: [id number] - CRE Performed By: #### L 500.4050, L100.0500 ####[facility] [address] [place], [address] Creatinine [Mass/Vol] 0.86 mg/dL Normal 0.55-1.02 [facility] Comment on above: Order Comment: Order Date: 09/27/24Order Info: 07- - CMPOrder Info: [id number] - CRE Result Comment: The validity of the calculated GFR GFRAA in patients over70 years has not been determined. Clinical correlation isessential. Performed By: #### L 500.4050, L100.0500 ####[facility] [address] [place], [address] EST GFR - AA 81 mL/min Normal >60 [facility] Comment on above: Order Comment: Order Date: 09/27/24Order Info: [id number] - CMPOrder Info: [id number] - CRE Result Comment: Afri can Mal[place]ian GFR Calc Performed By: #### L 500.4050, L100.0500 ####[facility] [address] [place], [address] GAP 8 Normal 5-15 [facility] Comment on above: Order Comment: Order Date: 09/27/24Order Info: [id number] - CMPOrder Info: [id number] - CRE Performed By: #### L 500.4050, L100.0500 ####[facility] [address] [place], [address] GFR/1.73 sq M.predicted among non-blacks MDRD (S/P/Bld) [Vol rate/Area] 67 mL/min/{1.73_m2} Normal >60 [facility] Comment on above: Order Comment: Order Date: 09/27/24Order Info: [id number] - CMPOrder Info: [id number] - CRE Result Comment: Non- GFR Calc Performed By: #### L 500.4050, L100.0500 ####[facility] [address] [place], [place], [id number] Globulin (S) [Mass/Vol] 5.0 g/dL High 2.2-4.[address] [facility] Comment on above: Order Comment: Order Date: 09/27/24Order Info: [id number] - CMPOrder Info: [id number]- - CRE Performed By: #### L 500.4050, L100.0500 ####[facility] [address] [place], [address] Glucose [Mass/Vol] 144 mg/dL High 74-106 [facility] Comment on above: Order Comment: Order Date: 09/27/24Order Info: [id number] - CMPOrder Info: [id number] - CRE Result Comment: Fast ing Glucose result greater than or equal to 126 mg/dLsuggests DIABETES MELLITUS per A.D.A. criteria. Performed By: #### L 500.4050, L100.0500 ####[facility] [address] [place], [address] Potassium [Moles/Vol] 3.5 mmol/L Normal 3.5-5.1 [facility] Comment on above: Order Comment: Order Date: 09/27/24Order Info: [id number] - CMPOrder Info: [id number] - CRE Performed By: #### L 500.4050, L100.0500 ####[facility] [address] [place], [place], [address] Sodium [Moles/Vol] 138 mmol/L Normal 136-145 [facility] Comment on above: Order Comment: Order Date: 09/27/24Order Info: [id number] - CMPOrder Info: [id number] - CRE Performed By: #### L 500.4050, L100.0500 ####[facility] [address] [place], [place], [id number] T PROT 8.0 g/dL Normal 6.4-8.2 [facility] Comment on above: Order Comment: Order Date: 09/27/24Order Info: [id number] - CMPOrder Info: [id number] - CRE Performed By: #### L 500.4050, L100.0500 ####[facility] [address] [place], [place], [address] Urea nitrogen [Mass/Vol] 11 mg/dL Normal 7-18 [facility] Comment on above: Order Comment: Order Date: 09/27/24Order Info: [id number] - CMPOrder Info: [id number] - CRE Performed By: #### L 500.4050, L100.0500 ####[facility] [address] [place], [address] Erythrocyte distribution wid th ratioOrdered By: Ramone Smiley on 09-27-2024 Erythrocyte distribution width (RBC) [Ratio] 15.9 % High 11.6-14.6 [facility] Erythrocyte distribution wid th standard deviationOrdered By: Ramone Smiley on 09-27-2024 Erythrocyte distribution width (RBC) [Ratio] 47.4 fl High 35.1-43.9 [facility] Glomerular filtration rate ( GFR) estimationOrdered By: Ramone Smiley on 09-27-2024 GFR/1.73 sq M.predicted among non-blacks MDRD (S/P/Bld) [Vol rate/Area] 67 mL/min/{1.73_m2} >60 [facility] Comment on above: Non- GFR Calc Glucose measurementOrdered B y: Ramone Smiley on 09-27-2024 Glucose [Mass/Vol] 144 mg/dL High 74-106 [facility] Comment on above: Fasting Glucose resu lt greater than or equal to 126 mg/dL suggests DIABETES MELLITUS per A.D.A. criteria. Hematocrit Auto (Bld) [Volum e fraction]Ordered By: Ramone Smiley on 09-27-2024 Hematocrit (Bld) [Volume fraction] 35.7 % Low 37-47 [facility] Hemoglobin measurementOrdere d By: Ramone Smiley on 09-27-2024 Hemoglobin (Bld) [Mass/Vol] 11.0 g/dL Low 12.0-15.0 [facility] Laboratory - Chemistry and C hemistry - challengeOrdered By: Ramone Smiley on 09-27-2024 AST [Catalytic activity/Vol] 16 U/L [facility] MCV (mean corpuscular volume ) determinationOrdered By: Ramone Smiley on 09-27-2024 MCV (RBC) [Entitic vol] 83.6 fL 81-[address] [facility] Mean corpuscular hemoglobin (MCH) determinationOrdered By: Ramone Smiley on 09-27-2024 MCH (RBC) [Entitic mass] 25.8 pg Low 27.0-32.0 [facility] Mean corpuscular hemoglobin concentration (MCHC) determinationOrdered By: Ramone Smiley on 09-27-2024 MCHC (RBC) [Mass/Vol] 30.8 g/dL Low 32-36 [facility] Mean platelet volume determi nationOrdered By: Ramone Smiley on 09-27-2024 Platelet mean volume (Bld) [Entitic vol] 11.3 fL 6.2-12.0 [facility] No Panel InformationOrdered By: Ramone Smiley on 09-27-2024 16 U/L [facility] Platelet countOrdered By: Richar Smiley on 09-27-2024 Platelets (Bld) [#/Vol] 287 10*3/uL 150-450 [facility] Potassium measurementOrdered By: Ramone Smiley on 09-27-2024 Potassium [Moles/Vol] 3.5 mmol/L 3.5-5.1 [facility] RBC Auto (Bld) [#/Vol]Ordere d By: Ramone Smiley on 09-27-2024 RBC (Bld) [#/Vol] 4.27 10*6/uL 4.2-5.4 [facility] Serum anion gap measurementO rdered By: Ramone Smiley on 09-27-2024 Anion gap [Moles/Vol] 8 mmol/L 5-15 [facility] Serum globulin measurementOr dered By: Ramone Smiley on 09-27-2024 Globulin (S) [Mass/Vol] 5.0 g/dL High 2.2-4.2 [facility] Serum or plasma alanine kelley otransferase (ALT) measurementOrdered By: Ramone Smiley on 09-27-2024 ALT [Catalytic activity/Vol] 16 U/L 13-56 [facility] Serum or plasma albumin melanie urement (mass/volume)Ordered By: Ramone Smiley on 09-27-2024 Albumin [Mass/Vol] 3.0 g/dL Low 3.2-5.0 [facility] Serum or plasma alkaline lissa sphatase measurementOrdered By: Ramone Smiley on 09-27-2024 ALP [Catalytic activity/Vol] 145 U/L High 45-117 [facility] Serum or plasma calcium melanie urement (mass/volume)Ordered By: Ramone Smiley on 09-27-2024 Calcium [Mass/Vol] 11.0 mg/dL High 8.5-10.1 [facility] Serum or plasma creatinine m easurement (mass/volume)Ordered By: Ramone Smiley on 09-27-2024 Creatinine [Mass/Vol] 0.86 mg/dL 0.55-1.02 [facility] Comment on above: The validity of the calculated GFR & GFRAA in patients over 70 years has not been determined. Clinical correlation is essential. Serum or plasma urea nitroge n measurement (mass/volume)Ordered By: Ramone Smiley on 09-27-2024 Urea nitrogen [Mass/Vol] 11 mg/dL 7-18 [facility] Sodium levelOrdered By: Ramone Smiley on 09-27-2024 Sodium [Moles/Vol] 138 mmol/L 136-145 [facility] Total proteinOrdered By: Lilliam Smiley on 09-27-2024 Protein [Mass/Vol] 8.0 g/dL 6.4-8.2 [facility] White blood cell (WBC) count Ordered By: Ramone Smiley on 09-27-2024 WBC (Bld) [#/Vol] 8.6 10*3/uL 4.4-11.0 [facility] Kidney and Bladderon 024 Kidney and Bladder Normal [facility] BNP,B-Type NATRIURETIC PEPTI Ish[place] 06-19-2024 Natriuretic peptide B (Bld) [Mass/Vol] 81.6 pg/mL Normal 0-100 [facility] Comment on above: Performed By: #### L 500.2500, L503.6620, L100.0100 ####[facility] [address] [place], [address] Basic Metabolic Profile (BMP )on 06-19-2024 BUN/CRE 9.3 RATIO Low 06-19 [facility] Comment on above: Performed By: #### L 500.2500, L503.6620, L100.0100 ####[facility] [address] [place], [address] CA,Total 11.0 mg/dL High 8.5-10.1 [facility] Comment on above: Performed By: #### L 500.2500, L503.6620, L100.0100 ####[facility] [address] [place], [address] Chloride [Moles/Vol] 104 mmol/L Normal 98-107 [facility] Comment on above: Performed By: #### L 500.2500, L503.6620, L100.0100 ####[facility] [address] [place], [address] CO2 [Moles/Vol] 26.0 mmol/L Normal 21.0-32.0 [facility] Comment on above: Performed By: #### L 500.2500, L503.6620, L100.0100 ####[facility] [address] [place], [address] Creatinine [Mass/Vol] 1.08 mg/dL High 0.55-1.02 [facility] Comment on above: Result Comment: The validity of the calculated GFR GFRAA in patients over70 years has not been determined. Clinical correlation isessential. Performed By: #### L 500.2500, L503.6620, L100.0100 ####[facility] [address] [place], [address] EST GFR - AA 63 mL/min Normal >60 [facility] Comment on above: Result Comment: Afri can [place] GFR Calc Performed By: #### L 500.2500, L503.6620, L100.0100 ####[facility] [address] [place], [address] GAP 6 Normal 5-15 [facility] Comment on above: Performed By: #### L 500.2500, L503.6620, L100.0100 ####[facility] [address] [place], [address] GFR/1.73 sq M.predicted among non-blacks MDRD (S/P/Bld) [Vol rate/Area] 52 mL/min/{1.73_m2} Low >60 [facility] Comment on above: Result Comment: Non- GFR Calc Performed By: #### L 500.2500, L503.6620, L100.0100 ####[facility] [address] [place], [address] Glucose [Mass/Vol] 263 mg/dL High 74-106 [facility] Comment on above: Result Comment: Gluc ose result greater than or equal to 200 mg/dLsuggests DIABETES MELLITUS per A.D.A. criteria. Performed By: #### L 500.2500, L503.6620, L100.0100 ####[facility] [address] [place], [address] Potassium [Moles/Vol] 4.4 mmol/L Normal 3.5-5.1 [facility] Comment on above: Performed By: #### L 500.2500, L503.6620, L100.0100 ####[facility] [address] [place], [address] Sodium [Moles/Vol] 137 mmol/L Normal 136-145 [facility] Comment on above: Performed By: #### L 500.2500, L503.6620, L100.0100 ####[facility] [address] [place], [address] Urea nitrogen [Mass/Vol] 10 mg/dL Normal 7-18 [facility] Comment on above: Performed By: #### L 500.2500, L503.6620, L100.0100 ####[facility] [address] [place], [address] CBC W/Diff, Automatedon 10-2 0-2024 Absolute Lymph 2.32 X10 3/uL Normal 0.83-4.51 [facility] Comment on above: Performed By: #### L 500.2500, L503.6620, L100.0100 ####[facility] [address] [place], [address] Absolute Neut 4.7 X10 3/uL Normal 2.0-7.7 [facility] Comment on above: Performed By: #### L 500.2500, L503.6620, L100.0100 ####[facility] [address] [place], [address] Basophils/100 WBC (Bld) 0.5 % Normal 0-1 [facility] Comment on above: Performed By: #### L 500.2500, L503.6620, L100.0100 ####[facility] [address] [place], [address] Eosinophils/100 WBC (Bld) 8.7 % High 0-5 [facility] Comment on above: Performed By: #### L 500.2500, L503.6620, L100.0100 ####[facility] [address] [place], [address] Erythrocyte distribution width (RBC) [Ratio] 16.6 % High 11.6-14.6 [facility] Comment on above: Performed By: #### L 500.2500, L503.6620, L100.0100 ####[facility] [address] [place], [address] Hematocrit (Bld) [Volume fraction] 36.6 % Low 37-47 [facility] Comment on above: Performed By: #### L 500.2500, L503.6620, L100.0100 ####[facility] [address] [place], [address] Hemoglobin (Bld) [Mass/Vol] 11.2 g/dL Low 12.0-15.0 [facility] Comment on above: Performed By: #### L 500.2500, L503.6620, L100.0100 ####[facility] [address] [place], [address] IG% 0.200 Normal 0.0-0.9 [facility] Comment on above: Result Comment: IG% - Immature Granulocytes (promyelocytes, myelocytes andmetamyelocytes) > 1% indicates that a LEFT SHIFT is Present. Performed By: #### L 500.2500, L503.6620, L100.0100 ####[facility] [address] [place], [address] Lymphocytes/100 WBC (Bld) 27.7 % Normal 19-41 [facility] Comment on above: Performed By: #### L 500.2500, L503.6620, L100.0100 ####[facility] [address] [place], [address] MCH (RBC) [Entitic mass] 25.6 pg Low 27.0-32.0 [facility] Comment on above: Performed By: #### L 500.2500, L503.6620, L100.0100 ####[facility] [address] [place], [address] MCHC (RBC) [Mass/Vol] 30.6 g/dL Low 32-36 [facility] Comment on above: Performed By: #### L 500.2500, L503.6620, L100.0100 ####[facility] [address] [place], [address] MCV (RBC) [Entitic vol] 83.8 fL Normal 81-[address] [facility] Comment on above: Performed By: #### L 500.2500, L503.6620, L100.0100 ####[facility] [address] [place], [address] Monocytes/100 WBC (Bld) 6.7 % Normal 0-[address] [facility] Comment on above: Performed By: #### L 500.2500, L503.6620, L100.0100 ####[facility] [address] [place], [address] Neutrophils/100 WBC (Bld) 56.2 % Normal 47-70 [facility] Comment on above: Performed By: #### L 500.2500, L503.6620, L100.0100 ####[facility] [address] [place], [address] Nucleated RBC (Bld) [#/Vol] 0 10*3/uL Normal 0-5 [facility] Comment on above: Performed By: #### L 500.2500, L503.6620, L100.0100 ####[facility] [address] [place], [address] Platelet mean volume (Bld) [Entitic vol] 10.4 fL Normal 6.2-12.0 [facility] Comment on above: Performed By: #### L 500.2500, L503.6620, L100.0100 ####[facility] [address] [place], [address] Platelets (Bld) [#/Vol] 234 10*3/uL Normal 150-450 [facility] Comment on above: Performed By: #### L 500.2500, L503.6620, L100.0100 ####[facility] [address] [place], [address] RBC (Bld) [#/Vol] 4.37 10*6/uL Normal 4.2-5.4 [facility] Comment on above: Performed By: #### L 500.2500, L503.6620, L100.0100 ####[facility] [address] [place], [address] RDW SD 50.9 fl High 35.1-43.9 [facility] Comment on above: Performed By: #### L 500.2500, L503.6620, L100.0100 ####[facility] [address] [place], [address] WBC (Bld) [#/Vol] 8.4 10*3/uL Normal 4.4-11.0 [facility] Comment on above: Performed By: #### L 500.2500, L503.6620, L100.0100 ####[facility] [address] [place], [address] Chest 1 View (Portable)on Chest 1 View (Portable) Normal [facility] Emergency Department Summary on 06-19-2024 Emergency Department Summary Normal [facility] 12 Lead EKGon 05-30-2024 12 Lead EKG Normal [facility] BNP,B-Type NATRIURETIC PEPTI Ishaan 05-30-2024 Natriuretic peptide B (Bld) [Mass/Vol] 108.0 pg/mL High 0-100 [facility] Comment on above: Performed By: #### L 100.0100, L503.6620, L500.2500, L501.4020 ####[facility] [address] [place], [address] Basic Metabolic Profile (BMP )on 05-30-2024 BUN/CRE 12.8 RATIO Normal 10-20 [facility] Comment on above: Order Comment: 'TROP ' Serial specimen #1, #2 or #3: 1 Performed By: #### L 100.0100, L503.6620, L500.2500, L501.4020 ####[facility] [address] [place], [address] CA,Total 11.4 mg/dL High 8.5-10.1 [facility] Comment on above: Order Comment: 'TROP ' Serial specimen #1, #2 or #3: 1 Performed By: #### L 100.0100, L503.6620, L500.2500, L501.4020 ####[facility] [address] [place], [address] Chloride [Moles/Vol] 104 mmol/L Normal 98-107 [facility] Comment on above: Order Comment: 'TROP ' Serial specimen #1, #2 or #3: 1 Performed By: #### L 100.0100, L503.6620, L500.2500, L501.4020 ####[facility] [address] [place], [address] CO2 [Moles/Vol] 28.0 mmol/L Normal 21.0-32.0 [facility] Comment on above: Order Comment: 'TROP ' Serial specimen #1, #2 or #3: 1 Performed By: #### L 100.0100, L503.6620, L500.2500, L501.4020 ####[facility] [address] [place], [address] Creatinine [Mass/Vol] 0.93 mg/dL Normal 0.55-1.02 [facility] Comment on above: Order Comment: 'TROP ' Serial specimen #1, #2 or #3: 1 Result Comment: The validity of the calculated GFR GFRAA in patients over70 years has not been determined. Clinical correlation isessential. Performed By: #### L 100.0100, L503.6620, L500.2500, L501.4020 ####[facility] [address] [place], [address] ECRCL 45.88 ml/min Normal [facility] Comment on above: Order Comment: 'TROP ' Serial specimen #1, #2 or #3: 1 Performed By: #### L 100.0100, L503.6620, L500.2500, L501.4020 ####[facility] [address] [place], [address] EST GFR - AA 74 mL/min Normal >60 [facility] Comment on above: Order Comment: 'TROP ' Serial specimen #1, #2 or #3: 1 Result Comment: Afri can Mal[place]ian GFR Calc Performed By: #### L 100.0100, L503.6620, L500.2500, L501.4020 ####[facility] [address] [place], [address] GAP 7 Normal 5-15 [facility] Comment on above: Order Comment: 'TROP ' Serial specimen #1, #2 or #3: 1 Performed By: #### L 100.0100, L503.6620, L500.2500, L501.4020 ####[facility] [address] [place], [address] GFR/1.73 sq M.predicted among non-blacks MDRD (S/P/Bld) [Vol rate/Area] 61 mL/min/{1.73_m2} Normal >60 [facility] Comment on above: Order Comment: 'TROP ' Serial specimen #1, #2 or #3: 1 Result Comment: Non- GFR Calc Performed By: #### L 100.0100, L503.6620, L500.2500, L501.4020 ####[facility] [address] [place], [address] Glucose [Mass/Vol] 167 mg/dL High 74-106 [facility] Comment on above: Order Comment: 'TROP ' Serial specimen #1, #2 or #3: 1 Result Comment: Fast ing Glucose result greater than or equal to 126 mg/dLsuggests DIABETES MELLITUS per A.D.A. criteria. Performed By: #### L 100.0100, L503.6620, L500.2500, L501.4020 ####[facility] [address] [place], [address] Potassium [Moles/Vol] 4.0 mmol/L Normal 3.5-5.1 [facility] Comment on above: Order Comment: 'TROP ' Serial specimen #1, #2 or #3: 1 Performed By: #### L 100.0100, L503.6620, L500.2500, L501.4020 ####[facility] [address] [place], [address] Sodium [Moles/Vol] 138 mmol/L Normal 136-145 [facility] Comment on above: Order Comment: 'TROP ' Serial specimen #1, #2 or #3: 1 Performed By: #### L 100.0100, L503.6620, L500.2500, L501.4020 ####[facility] [address] [place], [address] Urea nitrogen [Mass/Vol] 12 mg/dL Normal 7-18 [facility] Comment on above: Order Comment: 'TROP ' Serial specimen #1, #2 or #3: 1 Performed By: #### L 100.0100, L503.6620, L500.2500, L501.4020 ####[facility] [address] [place], [address] CBC W/Diff, Automatedon 09-3 0-2024 PLT EST ADEQUATE Normal ADEQ [facility] Comment on above: Performed By: #### L 100.0100, L503.6620, L500.2500, L501.4020 ####[facility] [address] [place], [address] Chest PA and Lateralon 05-30 Chest PA and Lateral Normal [facility] Emergency Department Summary on 05-30-2024 Emergency Department Summary Normal [facility] L501.4020on 05-30-2024 TROPONIN-I HS 12 pg/mL Normal 3.0-54.0 [facility] Comment on above: Order Comment: 'TROP ' Serial specimen #1, #2 or #3: 1 Result Comment: Plea se Note: New Test Units and Gender Specific Reference Ranges. For more information see Policy Stat Procedure Trafalgar High Sensitivity Troponin (TNIH) and attachments. Performed By: #### L 100.0100, L503.6620, L500.2500, L501.4020 ####[facility] [address] [place], [address] Inital Evaluation (1) - PTon 04-26-2024 Inital Evaluation (1) - PT Normal [facility] CBC W/Diff, Automatedon 03-31 Absolute Lymph 1.93 X10 3/uL Normal 0.83-4.51 [facility] Comment on above: Performed By: #### L 100.0100, L500.4050, L501.9985 ####[facility] [address] [place], [address] Absolute Neut 5.1 X10 3/uL Normal 2.0-7.7 [facility] Comment on above: Performed By: #### L 100.0100, L500.4050, L501.9985 ####[facility] [address] [place], [address] Basophils/100 WBC (Bld) 0.6 % Normal 0-1 [facility] Comment on above: Performed By: #### L 100.0100, L500.4050, L501.9985 ####[facility] [address] [place], [address] Eosinophils/100 WBC (Bld) 3.7 % Normal 0-5 [facility] Comment on above: Performed By: #### L 100.0100, L500.4050, L501.9985 ####[facility] [address] [place], [address] Erythrocyte distribution width (RBC) [Ratio] 16.0 % High 11.6-14.6 [facility] Comment on above: Performed By: #### L 100.0100, L500.4050, L501.9985 ####[facility] [address] [place], [address] Hematocrit (Bld) [Volume fraction] 34.9 % Low 37-47 [facility] Comment on above: Performed By: #### L 100.0100, L500.4050, L501.9985 ####[facility] [address] [place], [address] Hemoglobin (Bld) [Mass/Vol] 10.4 g/dL Low 12.0-15.0 [facility] Comment on above: Performed By: #### L 100.0100, L500.4050, L501.9985 ####[facility] [address] [place], [address] IG% 0.300 Normal 0.0-0.9 [facility] Comment on above: Result Comment: IG% - Immature Granulocytes (promyelocytes, myelocytes andmetamyelocytes) > 1% indicates that a LEFT SHIFT is Present. Performed By: #### L 100.0100, L500.4050, L501.9985 ####[facility] [address] [place], [address] Lymphocytes/100 WBC (Bld) 24.5 % Normal 19-41 [facility] Comment on above: Performed By: #### L 100.0100, L500.4050, L501.9985 ####[facility] [address] [place], [address] MCH (RBC) [Entitic mass] 24.4 pg Low 27.0-32.0 [facility] Comment on above: Performed By: #### L 100.0100, L500.4050, L501.9985 ####[facility] [address] [place], [address] MCHC (RBC) [Mass/Vol] 29.8 g/dL Low 32-36 [facility] Comment on above: Performed By: #### L 100.0100, L500.4050, L501.9985 ####[facility] [address] [place], [address] MCV (RBC) [Entitic vol] 81.9 fL Normal 81-99 [facility] Comment on above: Performed By: #### L 100.0100, L500.4050, L501.9985 ####[facility] [address] [place], [address] Monocytes/100 WBC (Bld) 6.8 % Normal 0-[address] [facility] Comment on above: Performed By: #### L 100.0100, L500.4050, L501.9985 ####[facility] [address] [place], [address] Neutrophils/100 WBC (Bld) 64.1 % Normal 47-70 [facility] Comment on above: Performed By: #### L 100.0100, L500.4050, L501.9985 ####[facility] [address] [place], [address] Nucleated RBC (Bld) [#/Vol] 0 10*3/uL Normal 0-5 [facility] Comment on above: Performed By: #### L 100.0100, L500.4050, L501.9985 ####[facility] [address] [place], [address] Platelet mean volume (Bld) [Entitic vol] 10.7 fL Normal 6.2-12.0 [facility] Comment on above: Performed By: #### L 100.0100, L500.4050, L501.9985 ####[facility] [address] [place], [address] Platelets (Bld) [#/Vol] 294 10*3/uL Normal 150-450 [facility] Comment on above: Performed By: #### L 100.0100, L500.4050, L501.9985 ####[facility] [address] [place], [address] RBC (Bld) [#/Vol] 4.26 10*6/uL Normal 4.2-5.4 [facility] Comment on above: Performed By: #### L 100.0100, L500.4050, L501.9985 ####[facility] [address] [place], [address] RDW SD 48.0 fl High 35.1-43.9 [facility] Comment on above: Performed By: #### L 100.0100, L500.4050, L501.9985 ####[facility] [address] [place], [address] WBC (Bld) [#/Vol] 7.9 10*3/uL Normal 4.4-11.0 [facility] Comment on above: Performed By: #### L 100.0100, L500.4050, L501.9985 ####[facility] [address] [place], [address] Comprehensive Metabolic Prof hung 04-18-2024 Albumin [Mass/Vol] 3.0 g/dL Low 3.2-5.0 [facility] Comment on above: Performed By: #### L 100.0100, L500.4050, L501.9985 ####[facility] [address] [place], [address] Albumin/Globulin [Mass ratio] 0.6 {ratio} Low 0.9-2.4 [facility] Comment on above: Performed By: #### L 100.0100, L500.4050, L501.9985 ####[facility] [address] [place], [address] ALK P 130 U/L High 45-117 [facility] Comment on above: Performed By: #### L 100.0100, L500.4050, L501.9985 ####[facility] [address] [place], [address] ALT [Catalytic activity/Vol] 14 U/L Normal 13-56 [facility] Comment on above: Performed By: #### L 100.0100, L500.4050, L501.9985 ####[facility] [address] [place], [address] AST [Catalytic activity/Vol] 22 U/L Normal 15-37 [facility] Comment on above: Performed By: #### L 100.0100, L500.4050, L501.9985 ####[facility] [address] [place], [address] Bilirubin [Mass/Vol] 0.30 mg/dL Normal 0.20-1.00 [facility] Comment on above: Result Comment: For patients on eltrombopag therapy, use of Dimension Trafalgar TBIL is not recommended. Performed By: #### L 100.0100, L500.4050, L501.9985 ####[facility] [address] [place], [address] BUN/CRE 12.5 RATIO Normal 10-20 [facility] Comment on above: Performed By: #### L 100.0100, L500.4050, L501.9985 ####[facility] [address] [place], [address] CA,Total 11.0 mg/dL High 8.5-10.1 [facility] Comment on above: Performed By: #### L 100.0100, L500.4050, L501.9985 ####[facility] [address] [place], [address] Chloride [Moles/Vol] 101 mmol/L Normal 98-107 [facility] Comment on above: Performed By: #### L 100.0100, L500.4050, L501.9985 ####[facility] [address] [place], [address] CO2 [Moles/Vol] 26.0 mmol/L Normal 21.0-32.0 [facility] Comment on above: Performed By: #### L 100.0100, L500.4050, L501.9985 ####[facility] [address] [place], [address] Creatinine [Mass/Vol] 0.96 mg/dL Normal 0.55-1.02 [facility] Comment on above: Result Comment: The validity of the calculated GFR GFRAA in patients over70 years has not been determined. Clinical correlation isessential. Performed By: #### L 100.0100, L500.4050, L501.9985 ####[facility] [address] [place], [address] EST GFR - AA 72 mL/min Normal >60 [facility] Comment on above: Result Comment: Afri can Mal[place]ian GFR Calc Performed By: #### L 100.0100, L500.4050, L501.9985 ####[facility] [address] [place], [address] GAP 6 Normal 5-15 [facility] Comment on above: Performed By: #### L 100.0100, L500.4050, L501.9985 ####[facility] [address] [place], [address] GFR/1.73 sq M.predicted among non-blacks MDRD (S/P/Bld) [Vol rate/Area] 59 mL/min/{1.73_m2} Low >60 [facility] Comment on above: Result Comment: Non- GFR Calc Performed By: #### L 100.0100, L500.4050, L501.9985 ####[facility] [address] [place], [address] Globulin (S) [Mass/Vol] 5.4 g/dL High 2.2-4.[address] [facility] Comment on above: Performed By: #### L 100.0100, L500.4050, L501.9985 ####[facility] [address] [place], [address] Glucose [Mass/Vol] 142 mg/dL High 74-106 [facility] Comment on above: Result Comment: Fast ing Glucose result greater than or equal to 126 mg/dLsuggests DIABETES MELLITUS per A.D.A. criteria. Performed By: #### L 100.0100, L500.4050, L501.9985 ####[facility] [address] [place], [address] Potassium [Moles/Vol] 3.5 mmol/L Normal 3.5-5.1 [facility] Comment on above: Performed By: #### L 100.0100, L500.4050, L501.9985 ####[facility] [address] [place], [address] Sodium [Moles/Vol] 133 mmol/L Low 136-145 [facility] Comment on above: Performed By: #### L 100.0100, L500.4050, L501.9985 ####[facility] [address] [place], [address] T PROT 8.4 g/dL High 6.4-8.2 [facility] Comment on above: Performed By: #### L 100.0100, L500.4050, L501.9985 ####[facility] [address] [place], [address] Urea nitrogen [Mass/Vol] 12 mg/dL Normal 7-18 [facility] Comment on above: Performed By: #### L 100.0100, L500.4050, L501.9985 ####[facility] [address] [place], [address] Hemoglobin A1con 04-18-2024 HbA1c (Bld) [Mass fraction] 8.2 % High 3.8-5.6 [facility] Comment on above: Result Comment: Norm al < 5.7 % Prediabetic 5.7 - 6.4 % Diabetic >or= 6.5 % Please note range changes. Performed By: #### L 100.0100, L500.4050, L501.9985 ####[facility] [address] [place], [address] Absolute lymphocyte countOrd ered By: Sunny Bell on 12-30-2023 Lymphocytes Auto (Unsp spec) [#/Vol] 2.48 10*3/uL 0.83-4.51 [facility] Automated lymphocyte count a s percentage of total leukocytesOrdered By: Sunny Bell on 12-30-2023 Lymphocytes/100 WBC Auto (Unsp spec) 25.3 % 19-41 [facility] Basophil percentageOrdered B y: Sunny Bell on 12-30-2023 Basophils/100 WBC (Bld) 0.3 % 0-1 [facility] Chloride [Moles/Vol] 104 mmol/L 98-[facility] Eosin[facility] WBC (Bld) 1.4 % 0-5 [facility] Glucose [Mass/Vol] 127 mg/dL 74-106 [facility] Comment on above: Fasting Glucose resu lt greater than or equal to 126 mg/dL suggests DIABETES MELLITUS per A.D.A. criteria. Hemoglobin (Bld) [Mass/Vol] 10.7 g/dL 12.0-15.0 [facility] Monocytes/100 WBC (Bld) 8.7 % 0-10 [facility] Neutrophils (Bld) [#/Vol] 6.3 10*3/uL 2.0-7.7 [facility] Neutrophils/100 WBC (Bld) 63.9 % 47-70 [facility] Potassium [Moles/Vol] 4.4 mmol/L 3.5-5.1 [facility] Sodium [Moles/Vol] 135 mmol/L 136-145 [facility] WBC (Bld) [#/Vol] 9.8 10*3/uL 4.4-11.0 [facility] Determination of erythrocyte mean corpuscular volume (MCV)Ordered By: Sunny Bell on 12-30-2023 MCV (RBC) [Entitic vol] 84.9 fL 81-[address] [facility] Erythrocyte distribution wid th ratioOrdered By: Sunny Bell on 12-30-2023 Erythrocyte distribution width (RBC) [Ratio] 15.5 % 11.6-14.6 [facility] Erythrocyte distribution wid th standard deviationOrdered By: Sunny Bell on 12-30-2023 Erythrocyte distribution width (RBC) [Entitic vol] 47.9 fL 35.1-43.9 [facility] Hematocrit Auto (Bld) [Volum e fraction]Ordered By: Sunny Bell on 12-30-2023 Hematocrit (Bld) [Volume fraction] 33.8 % 37-47 [facility] Immature granulocytes/100 WB C Auto (Bld)Ordered By: Sunny Bell on 12-30-2023 Immature granulocytes/100 WBC (Bld) 0.400 % 0.0-0.9 [facility] Comment on above: IG% - Immature Granu locytes (promyelocytes, myelocytes and metamyelocytes) > 1% indicates that a LEFT SHIFT is Present. Laboratory - Chemistry and C hemistry - challengeOrdered By: Sunny Bell on 12-30-2023 CO2 [Moles/Vol] 27.0 mmol/L 21.0-32.0 [facility] Urea nitrogen/Creatinine [Mass ratio] 21.3 mg/mg 10-20 [facility] Laboratory - Hematology and Cell countsOrdered By: Sunny Bell on 12-30-2023 MCH (RBC) [Entitic mass] 26.9 pg 27.0-32.0 [facility] MCHC (RBC) [Mass/Vol] 31.7 g/dL 32-36 [facility] Nucleated RBC/100 WBC (Bld) [Ratio] 0 % 0-5 [facility] Platelet mean volume (Bld) [Entitic vol] 11.3 fL 6.2-12.0 [facility] Platelets (Bld) [#/Vol] 191 10*3/uL 150-450 [facility] No Panel InformationOrdered By: Sunny Bell on 12-30-2023 Estimated Creatinine Clearance Calc 40.01 ml/min [facility] Estimated GFR (MDRD) Amer 63 mL/min >60 [facility] Comment on above: GFR Calc Estimated GFR (MDRD) Non-Af Amer 52 mL/min >60 [facility] Comment on above: Non- GFR Calc RBC Auto (Bld) [#/Vol]Ordere d By: Sunny Bell on 12-30-2023 RBC (Bld) [#/Vol] 3.98 10*6/uL 4.2-5.4 [facility] Serum or plasma calcium melanie urement (mass/volume)Ordered By: Sunny Bell on 12-30-2023 Calcium [Mass/Vol] 11.3 mg/dL 8.5-10.1 [facility] Serum or plasma creatinine m easurement (mass/volume)Ordered By: Sunny Bell on 12-30-2023 Creatinine [Mass/Vol] 1.08 mg/dL 0.55-1.02 [facility] Comment on above: The validity of the calculated GFR & GFRAA in patients over 70 years has not been determined. Clinical correlation is essential. Serum or plasma urea nitroge n measurement (mass/volume)Ordered By: Sunny Bell on 12-30-2023 Urea nitrogen [Mass/Vol] 23 mg/dL 7-18 [facility] Thin prep Papanicolaou smear with manual screeningOrdered By: Sunny Bell on 12-30-2023 Thin prep Papanicolaou smear with manual screening 78 mg/dL 74-106 [facility] Comment on above: MANAGEMENT OF PATIEN T CARE PER NURSING PROTOCOL Thin prep Papanicolaou smear with manual screening 4 5-15 [facility] Basophil percentageOrdered B y: Sunny Bell on 12-28-2023 Basophil percentage 3.0 mg/dL 2.5-4.9 [facility] No Panel InformationOrdered By: Nestor Bartlett on 12-28-2023 Parathyroid Hormone (Intact) 177.6 pg/mL 18.4-80.1 [facility] Absolute lymphocyte countOrd ered By: Queta Cortez on 12-27-2023 Lymphocytes Auto (Unsp spec) [#/Vol] 3.04 10*3/uL 0.83-4.51 [facility] Activated partial thrombopla stin time (aPTT) in platelet poor plasma by coagulation aOrdered By: Queta Cortez on 12-27-2023 aPTT Coag (PPP) [Time] 27.3 s 24.1-36.2 [facility] Automated lymphocyte count a s percentage of total leukocytesOrdered By: Queta Cortez on 12-27-2023 Lymphocytes/100 WBC Auto (Unsp spec) 37.1 % 19-41 [facility] Basophil percentageOrdered B y: Queta Cortez on 12-27-2023 Basophils/100 WBC (Bld) 0.5 % 0-1 [facility] Chloride [Moles/Vol] 103 mmol/L 98-107 [facility] Eosinophils/100 WBC (Bld) 3.1 % 0-5 [facility] Glucose [Mass/Vol] 254 mg/dL 74-106 [facility] Comment on above: Glucose result great er than or equal to 200 mg/dLsuggests DIABETES MELLITUS per A.D.A. criteria. Hemoglobin (Bld) [Mass/Vol] 12.4 g/dL 12.0-15.0 [facility] Monocytes/100 WBC (Bld) 6.6 % 0-10 [facility] Neutrophils (Bld) [#/Vol] 4.2 10*3/uL 2.0-7.7 [facility] Neutrophils/100 WBC (Bld) 51.7 % 47-70 [facility] Potassium [Moles/Vol] 4.2 mmol/L 3.5-5.1 [facility] Sodium [Moles/Vol] 136 mmol/L 136-145 [facility] WBC (Bld) [#/Vol] 8.2 10*3/uL 4.4-11.0 [facility] Determination of erythrocyte mean corpuscular volume (MCV)Ordered By: Queta Cortez on 12-27-2023 MCV (RBC) [Entitic vol] 85.2 fL 81-99 [facility] Erythrocyte distribution wid th ratioOrdered By: Queta Cortez on 12-27-2023 Erythrocyte distribution width (RBC) [Ratio] 15.5 % 11.6-14.6 [facility] Erythrocyte distribution wid th standard deviationOrdered By: Queta Cortez on 12-27-2023 Erythrocyte distribution width (RBC) [Entitic vol] 47.0 fL 35.1-43.9 [facility] Hematocrit Auto (Bld) [Volum e fraction]Ordered By: Queta Cortez on 12-27-2023 Hematocrit (Bld) [Volume fraction] 39.8 % 37-47 [facility] Immature granulocytes/100 WB C Auto (Bld)Ordered By: Queta Cortez on 12-27-2023 Immature granulocytes/100 WBC (Bld) 1.000 % 0.0-0.9 [facility] Comment on above: IG% - Immature Granu locytes (promyelocytes, myelocytes and metamyelocytes) > 1% indicates that a LEFT SHIFT is Present. Laboratory - Chemistry and C hemistry - challengeOrdered By: Queta Cortez on 12-27-2023 CO2 [Moles/Vol] 29.0 mmol/L 21.0-32.0 [facility] Urea nitrogen/Creatinine [Mass ratio] 18.5 mg/mg 10-20 [facility] Laboratory - CoagulationOrde red By: Queta Cortez on 12-27-2023 INR Coag (Bld) [Relative time] 1.1 {INR} [facility] PT Coag (PPP) [Time] 13.7 s 11.7-14.9 [facility] Laboratory - Hematology and Cell countsOrdered By: Queta Cortez on 12-27-2023 MCH (RBC) [Entitic mass] 26.6 pg 27.0-32.0 [facility] MCHC (RBC) [Mass/Vol] 31.2 g/dL 32-36 [facility] Nucleated RBC/100 WBC (Bld) [Ratio] 0 % 0-5 [facility] Platelet mean volume (Bld) [Entitic vol] 11.5 fL 6.2-12.0 [facility] Platelets (Bld) [#/Vol] 237 10*3/uL 150-450 [facility] No Panel InformationOrdered By: Queta Cortez on 12-27-2023 Estimated Creatinine Clearance Calc 37.33 ml/min [facility] Estimated GFR (MDRD) Amer 56 mL/min >60 [facility] Comment on above: GFR Calc Estimated GFR (MDRD) Non-Af Amer 46 mL/min >60 [facility] Comment on above: Non- GFR Calc RBC Auto (Bld) [#/Vol]Ordere d By: Queta Cortez on 12-27-2023 RBC (Bld) [#/Vol] 4.67 10*6/uL 4.2-5.4 [facility] Serum or plasma calcium melanie urement (mass/volume)Ordered By: Queta Cortez on 12-27-2023 Calcium [Mass/Vol] 11.2 mg/dL 8.5-10.1 [facility] Serum or plasma creatinine m easurement (mass/volume)Ordered By: Queta Cortez on 12-27-2023 Creatinine [Mass/Vol] 1.19 mg/dL 0.55-1.02 [facility] Comment on above: The validity of the calculated GFR & GFRAA in patients over 70 years has not been determined. Clinical correlation is essential. Serum or plasma urea nitroge n measurement (mass/volume)Ordered By: Queta Cortez on 12-27-2023 Urea nitrogen [Mass/Vol] 22 mg/dL 7-18 [facility] Thin prep Papanicolaou smear with manual screeningOrdered By: Queta Cortez on 12-27-2023 Thin prep Papanicolaou smear with manual screening 4 5-15 [facility] Whole blood hemoglobin A1c/t otal hemoglobin ratio (mass fraction)Ordered By: Nestor Bartlett on 12-27-2023 HbA1c (Bld) [Mass fraction] 9.4 % 3.8-5.6 [facility] Comment on above: Normal < 5.7 % Predi abetic 5.7 - 6.4 % Diabetic >or= 6.5 % Please note range changes. Absolute lymphocyte countOrd ered By: Ramone Smiley on 10-26-2023 Lymphocytes Auto (Unsp spec) [#/Vol] 2.86 10*3/uL 0.83-4.51 [facility] Automated lymphocyte count a s percentage of total leukocytesOrdered By: Ramone Smiley on 10-26-2023 Lymphocytes/100 WBC Auto (Unsp spec) 31.9 % 19-41 [facility] Basophil percentageOrdered B y: Ramone Smiley on 10-26-2023 Basophils/100 WBC (Bld) 0.6 % 0-1 [facility] Bilirubin [Mass/Vol] 0.30 mg/dL 0.20-1.00 [facility] Comment on above: For patients on eltr ombopag therapy, use of Dimension [place] TBIL is not recommended. Chloride [Moles/Vol] 101 mmol/L 98-107 [facility] Eosinophils/100 WBC (Bld) 2.6 % 0-5 [facility] Glucose [Mass/Vol] 135 mg/dL 74-106 [facility] Comment on above: Fasting Glucose resu lt greater than or equal to 126 mg/dL suggests DIABETES MELLITUS per A.D.A. criteria. Hemoglobin (Bld) [Mass/Vol] 10.9 g/dL 12.0-15.0 [facility] Monocytes/100 WBC (Bld) 8.0 % 0-10 [facility] Neutrophils (Bld) [#/Vol] 5.1 10*3/uL 2.0-7.7 [facility] Neutrophils/100 WBC (Bld) 56.6 % 47-70 [facility] Potassium [Moles/Vol] 4.5 mmol/L 3.5-5.1 [facility] Protein [Mass/Vol] 8.6 g/dL 6.4-8.2 [facility] Sodium [Moles/Vol] 134 mmol/L 136-145 [facility] WBC (Bld) [#/Vol] 9.0 10*3/uL 4.4-11.0 [facility] Determination of erythrocyte mean corpuscular volume (MCV)Ordered By: Ramone Smiley on 10-26-2023 MCV (RBC) [Entitic vol] 85.8 fL 81-99 [facility] Erythrocyte distribution wid th ratioOrdered By: Ramone Smiley on 10-26-2023 Erythrocyte distribution width (RBC) [Ratio] 17.5 % 11.6-14.6 [facility] Erythrocyte distribution wid th standard deviationOrdered By: Ramone Smiley on 10-26-2023 Erythrocyte distribution width (RBC) [Entitic vol] 55.2 fL 35.1-43.9 [facility] Hematocrit Auto (Bld) [Volum e fraction]Ordered By: Ramone Smiley on 10-26-2023 Hematocrit (Bld) [Volume fraction] 36.2 % 37-47 [facility] Immature granulocytes/100 WB C Auto (Bld)Ordered By: Ramone Smiley on 10-26-2023 Immature granulocytes/100 WBC (Bld) 0.300 % 0.0-0.9 [facility] Comment on above: IG% - Immature Granu locytes (promyelocytes, myelocytes and metamyelocytes) > 1% indicates that a LEFT SHIFT is Present. Laboratory - Chemistry and C hemistry - challengeOrdered By: Ramone Smiley on 10-26-2023 Albumin/Globulin [Mass ratio] 0.6 {ratio} 0.9-2.4 [facility] ALP [Catalytic activity/Vol] 109 U/L 45-117 [facility] ALT [Catalytic activity/Vol] 17 U/L 13-56 [facility] CO2 [Moles/Vol] 27.0 mmol/L 21.0-32.0 [facility] Cobalamin (Vitamin B12) [Mass/Vol] 654 pg/mL 211-911 [facility] Ferritin [Mass/Vol] 99 ng/mL 8-252 [facility] Globulin (S) [Mass/Vol] 5.4 g/dL 2.2-4.2 [facility] Urea nitrogen/Creatinine [Mass ratio] 17.6 mg/mg 10-20 [facility] Laboratory - Hematology and Cell countsOrdered By: Ramone Smiley on 10-26-2023 MCH (RBC) [Entitic mass] 25.8 pg 27.0-32.0 [facility] MCHC (RBC) [Mass/Vol] 30.1 g/dL 32-36 [facility] Nucleated RBC/100 WBC (Bld) [Ratio] 0 % 0-5 [facility] Platelet mean volume (Bld) [Entitic vol] 11.6 fL 6.2-12.0 [facility] Platelets (Bld) [#/Vol] 268 10*3/uL 150-450 [facility] No Panel InformationOrdered By: Ramone Smiley on 10-26-2023 Estimated GFR (MDRD) Amer 67 mL/min >60 [facility] Comment on above: GFR Calc Estimated GFR (MDRD) Non-Af Amer 55 mL/min >60 [facility] Comment on above: Non- GFR Calc Folate 23.70 ng/mL 3.1-55.4 [facility] Vitamin D 25-Hydroxy 34.5 ng/mL [facility] Comment on above: Vitamin D 25(OH) Sta tus Range Deficiency <20 ng/mL (50nmol/L) Insufficiency 20 - 30 ng/mL (50 - 75 nmol/L) Sufficiency 30 - 100 ng/mL (75 - 250 nmol/L) Toxicity >100 ng/mL (>250 nmol/L) RBC Auto (Bld) [#/Vol]Ordere d By: Ramone Smiley on 10-26-2023 RBC (Bld) [#/Vol] 4.22 10*6/uL 4.2-5.4 [facility] Serum or plasma calcium melanie urement (mass/volume)Ordered By: Ramone Smiley on 10-26-2023 Calcium [Mass/Vol] 11.2 mg/dL 8.5-10.1 [facility] Serum or plasma creatinine m easurement (mass/volume)Ordered By: Ramone Smiley on 10-26-2023 Creatinine [Mass/Vol] 1.02 mg/dL 0.55-1.02 [facility] Comment on above: The validity of the calculated GFR & GFRAA in patients over 70 years has not been determined. Clinical correlation is essential. Serum or plasma thyroid stim ulating hormone (TSH) measurement (units/volume)Ordered By: Ramone Smiley on 10-26-2023 TSH Qn 0.66 uIU/mL 0.358-3.74 [facility] Serum or plasma urea nitroge n measurement (mass/volume)Ordered By: Ramone Smiley on 10-26-2023 Urea nitrogen [Mass/Vol] 18 mg/dL 7-18 [facility] Thin prep Papanicolaou smear with manual screeningOrdered By: Ramone Smiley on 10-26-2023 Thin prep Papanicolaou smear with manual screening 3.2 g/dL 3.2-5.0 [facility] Thin prep Papanicolaou smear with manual screening 18 U/L 15-37 [facility] Thin prep Papanicolaou smear with manual screening 6 5-15 [facility] Whole blood hemoglobin A1c/t otal hemoglobin ratio (mass fraction)Ordered By: Ramone Smiley on 10-26-2023 HbA1c (Bld) [Mass fraction] 8.2 % 3.8-5.6 [facility] Comment on above: Normal < 5.7 % Predi abetic 5.7 - 6.4 % Diabetic >or= 6.5 % Please note range changes. Basophil percentageOrdered B y: Nestor Bartlett on 08-17-2023 Chloride [Moles/Vol] 105 mmol/L 98-107 [facility] Glucose [Mass/Vol] 167 mg/dL 74-106 [facility] Comment on above: Fasting Glucose resu lt greater than or equal to 126 mg/dL suggests DIABETES MELLITUS per A.D.A. criteria. Potassium [Moles/Vol] 4.9 mmol/L 3.5-5.1 [facility] Sodium [Moles/Vol] 139 mmol/L 136-145 [facility] WBC (Bld) [#/Vol] 8.4 10*3/uL 4.4-11.0 [facility] Blood erythrocytes count (nu mber/volume)Ordered By: Nestor Bartlett on 08-17-2023 RBC (Bld) [#/Vol] 3.41 10*6/uL 4.2-5.4 [facility] Blood hemoglobin measurement (mass/volume)Ordered By: Nestor Bartlett on 08-17-2023 Hemoglobin (Bld) [Mass/Vol] 8.9 g/dL 12.0-15.0 [facility] Blood platelet mean volumeOr dered By: Nestor Bartlett on 08-17-2023 Platelet mean volume (Bld) [Entitic vol] 10.4 fL 6.2-12.0 [facility] Determination of erythrocyte mean corpuscular volume (MCV)Ordered By: Nestor Bartlett on 08-17-2023 MCV (RBC) [Entitic vol] 84.5 fL 81-99 [facility] Glucose Glucometer (BldC) [M ass/Vol]Ordered By: Sandeep Denson on 08-17-2023 Glucose [Mass/Vol] 267 mg/dL 74-106 [facility] Comment on above: MANAGEMENT OF PATIEN T CARE PER NURSING PROTOCOL Hematocrit Auto (Bld) [Volum e fraction]Ordered By: Nestor Bartlett on 08-17-2023 Hematocrit (Bld) [Volume fraction] 28.8 % 37-47 [facility] Laboratory - Chemistry and C hemistry - challengeOrdered By: Nestor Bartlett on 08-17-2023 CO2 [Moles/Vol] 30.0 mmol/L 21.0-32.0 [facility] Urea nitrogen/Creatinine [Mass ratio] 19.9 mg/mg 10-20 [facility] Laboratory - Hematology and Cell countsOrdered By: Nestor Bartlett on 08-17-2023 Erythrocyte distribution width (RBC) [Entitic vol] 55.6 fL 35.1-43.9 [facility] Erythrocyte distribution width (RBC) [Ratio] 17.9 % 11.6-14.6 [facility] MCH (RBC) [Entitic mass] 26.1 pg 27.0-32.0 [facility] MCHC Auto (RBC) [Mass/Vol]Or dered By: Nestor Bartlett on 08-17-2023 MCHC (RBC) [Mass/Vol] 30.9 g/dL 32-36 [facility] No Panel InformationOrdered By: Nestor Bartlett on 08-17-2023 Estimated Creatinine Clearance Calc 41.47 ml/min [facility] Estimated GFR (MDRD) Amer 77 mL/min >60 [facility] Comment on above: GFR Calc Estimated GFR (MDRD) Non-Af Amer 64 mL/min >60 [facility] Comment on above: Non- GFR Calc Platelets bldOrdered By: Neida Bartlett on 08-17-2023 Platelets (Bld) [#/Vol] 480 10*3/uL 150-450 [facility] Serum or plasma calcium melanie urement (mass/volume)Ordered By: Nestor Bartlett on 08-17-2023 Calcium [Mass/Vol] 10.6 mg/dL 8.5-10.1 [facility] Serum or plasma creatinine m easurement (mass/volume)Ordered By: Nestor Bartlett on 08-17-2023 Creatinine [Mass/Vol] 0.91 mg/dL 0.55-1.02 [facility] Comment on above: The validity of the calculated GFR & GFRAA in patients over 70 years has not been determined. Clinical correlation is essential. Serum or plasma urea nitroge n measurement (mass/volume)Ordered By: Nestor Bartlett on 08-17-2023 Urea nitrogen [Mass/Vol] 18 mg/dL - [facility] Thin prep Papanicolaou smear with manual screeningOrdered By: Nestor Bartlett on 08-17-2023 Thin prep Papanicolaou smear with manual screening 4 5- [facility] Absolute lymphocyte countOrd ered By: Heydi Amaya on 08-14-2023 Lymphocytes Auto (Unsp spec) [#/Vol] 1.25 10*3/uL 0.83-4.51 [facility] Basophil percentageOrdered B y: Heydi Amaya on 08-14-2023 Basophil percentage 1.7 mg/dL 2.5-4.9 [facility] Basophils/100 WBC (Bld) 0.3 % 0-1 [facility] Eosinophils/100 WBC (Bld) 0.6 % 0-5 [facility] Neutrophils (Bld) [#/Vol] 9.0 10*3/uL 2.0-7.7 [facility] Neutrophils/100 WBC (Bld) 79.7 % 47-70 [facility] Blood lymphocytes/100 leukoc ytesOrdered By: Heydi Amaya on 08-14-2023 Lymphocytes/100 WBC (Bld) 11.1 % 19-41 [facility] Blood monocytes/100 leukocyt esOrdered By: Heydi Amaya on 08-14-2023 Monocytes/100 WBC (Bld) 6.1 % 0-10 [facility] Iron measurement (mass/mass) Ordered By: Nestor Bartlett on 08-14-2023 Iron (Unsp spec) [Mass/Mass] 14 ug/dL 50-170 [facility] Laboratory - Chemistry and C hemistry - challengeOrdered By: Nestor Bartlett on 08-14-2023 Cobalamin (Vitamin B12) [Mass/Vol] 250 pg/mL 211-911 [facility] Laboratory - Chemistry and C hemistry - challengeOrdered By: Heydi Amaya on 08-14-2023 Free T4 [Mass/Vol] 1.51 ng/dL 0.76-1.46 [facility] Magnesium [Mass/Vol] 2.1 mg/dL 1.6-2.6 [facility] Laboratory - Hematology and Cell countsOrdered By: Heydi Amaya on 08-14-2023 Immature granulocytes/100 WBC (Bld) 2.200 % 0.0-0.9 [facility] Comment on above: IG% - Immature Granu locytes (promyelocytes, myelocytes and metamyelocytes) > 1% indicates that a LEFT SHIFT is Present. Nucleated RBC/100 WBC (Bld) [Ratio] 0 % 0-5 [facility] No Panel InformationOrdered By: Heydi Amaya on 08-14-2023 Free Triiodothyronine (T3) pg/dL 1.9 pg/mL 2.18-3.98 [facility] Parathyroid Hormone (Intact) 153.7 pg/mL 18.4-80.1 [facility] Thyroid Stimulating Hormone (TSH) 0.01 uIU/mL 0.358-3.74 [facility] Vitamin D 25-Hydroxy 39.9 ng/mL [facility] Comment on above: Vitamin D 25(OH) Sta tus Range Deficiency <20 ng/mL (50nmol/L) Insufficiency 20 - 30 ng/mL (50 - 75 nmol/L) Sufficiency 30 - 100 ng/mL (75 - 250 nmol/L) Toxicity >100 ng/mL (>250 nmol/L) No Panel InformationOrdered By: Nestor Bartlett on 08-14-2023 Total Iron Binding Capacity 197 ug/dL 250-450 [facility] Serum or plasma ferritin rubina surement (mass/volume)Ordered By: Nestor Bartlett on 08-14-2023 Ferritin [Mass/Vol] 1578 ng/mL 8-252 [facility] Serum or plasma folate measu rement (mass/volume)Ordered By: Nestor Bartlett on 08-14-2023 Folate [Mass/Vol] 2.90 ng/mL 3.1-55.4 [facility] Serum or plasma iron saturat ion measurement (mass fraction)Ordered By: Nestor Bartlett on 08-14-2023 Iron saturation [Mass fraction] 7.1 % 15.0-55.0 [facility] Thin prep Papanicolaou smear with manual screeningOrdered By: Heydi Amaya on 08-14-2023 Thin prep Papanicolaou smear with manual screening 285 mOsm/KG 280-301 [facility] Absolute lymphocyte countOrd ered By: Robert Allison on 08-13-2023 Lymphocytes Auto (Unsp spec) [#/Vol] 1.37 10*3/uL 0.83-4.51 [facility] Basophil percentageOrdered B y: Robert Allison on 08-13-2023 Basophil percentage 10-25 SEEN /hpf 0-5 [facility] Lactate [Moles/Vol] 1.2 mmol/L 0.4-2.0 [facility] Basophils/100 WBC (Bld) 0.3 % 0-1 [facility] Bilirubin [Mass/Vol] 0.60 mg/dL 0.20-1.00 [facility] Comment on above: For patients on eltr ombopag therapy, use of Dimension [place] TBIL is not recommended. Chloride [Moles/Vol] 92 mmol/L 98-107 [facility] Eosinophils/100 WBC (Bld) 0.1 % 0-5 [facility] Glucose [Mass/Vol] 212 mg/dL 74-106 [facility] Comment on above: Glucose result great er than or equal to 200 mg/dLsuggests DIABETES MELLITUS per A.D.A. criteria. Neutrophils (Bld) [#/Vol] 12.1 10*3/uL 2.0-7.7 [facility] Neutrophils/100 WBC (Bld) 82.7 % 47-70 [facility] Potassium [Moles/Vol] 3.8 mmol/L 3.5-5.1 [facility] Comment on above: Moderate Hemolysis, Result may be falsely increased. Protein [Mass/Vol] 7.8 g/dL 6.4-8.2 [facility] Sodium [Moles/Vol] 127 mmol/L 136-145 [facility] WBC (Bld) [#/Vol] 14.7 10*3/uL 4.4-11.0 [facility] Bilirubin Test strip Ql (U)O rdered By: Robert Allison on 08-13-2023 Bilirubin Ql (U) Negative Negative [facility] Blood erythrocytes count (nu mber/volume)Ordered By: Robert Allison on 08-13-2023 RBC (Bld) [#/Vol] 3.83 10*6/uL 4.2-5.4 [facility] Blood hemoglobin measurement (mass/volume)Ordered By: Robert Allison on 08-13-2023 Hemoglobin (Bld) [Mass/Vol] 10.0 g/dL 12.0-15.0 [facility] Blood lymphocytes/100 leukoc ytesOrdered By: Robert Allison on 08-13-2023 Lymphocytes/100 WBC (Bld) 9.4 % 19-41 [facility] Blood monocytes/100 leukocyt esOrdered By: Robert Allison on 08-13-2023 Monocytes/100 WBC (Bld) 6.1 % 0-10 [facility] Blood platelet mean volumeOr dered By: Robert Allison on 08-13-2023 Platelet mean volume (Bld) [Entitic vol] 10.8 fL 6.2-12.0 [facility] Culture, urineOrdered By: Ester Allison on 08-13-2023 Bacteria identified Cx Nom (U) Klebsiella pneumoniae sp pneum [facility] Determination of erythrocyte mean corpuscular volume (MCV)Ordered By: Robert Allison on 08-13-2023 MCV (RBC) [Entitic vol] 85.1 fL 81-99 [facility] Hematocrit Auto (Bld) [Volum e fraction]Ordered By: Robert Allison on 08-13-2023 Hematocrit (Bld) [Volume fraction] 32.6 % 37-47 [facility] Influenza virus A and B and SARS-CoV-2 (COVID-19) Ag panel - Upper respiratory specimOrdered By: Robert Allison on 08-13-2023 SARS-CoV-2 (COVID-19) RNA BEBETO+probe Ql (Resp) [facility] Ketones Test strip Ql (U)Ord ered By: Robert Allison on 08-13-2023 Ketones Ql (U) 50 mg/dl Negative [facility] Laboratory - Chemistry and C hemistry - challengeOrdered By: Heydi Amaya on 08-13-2023 Sodium (U) [Moles/Vol] 24 mmol/L Not Establ. [facility] Laboratory - Chemistry and C hemistry - challengeOrdered By: Robert Allison on 08-13-2023 ALP [Catalytic activity/Vol] 105 U/L 45-117 [facility] ALT [Catalytic activity/Vol] 29 U/L 13-56 [facility] CO2 [Moles/Vol] 23.0 mmol/L 21.0-32.0 [facility] Globulin (S) [Mass/Vol] 5.6 g/dL 2.2-4.2 [facility] Urea nitrogen/Creatinine [Mass ratio] 26.3 mg/mg 10-20 [facility] Laboratory - Hematology and Cell countsOrdered By: Robert Allison on 08-13-2023 Erythrocyte distribution width (RBC) [Entitic vol] 53.7 fL 35.1-43.9 [facility] [facility] Erythrocyte distribution width (RBC) [Ratio] 17.2 % 11.6-14.6 [facility] Immature granulocytes/100 WBC (Bld) 1.400 % 0.0-0.9 [facility] Comment on above: IG% - Immature Granu locytes (promyelocytes, myelocytes and metamyelocytes) > 1% indicates that a LEFT SHIFT is Present. MCH (RBC) [Entitic mass] 26.1 pg 27.0-32.0 [facility] Nucleated RBC/100 WBC (Bld) [Ratio] 0 % 0-5 [facility] Laboratory - Microbiology an d Antimicrobial susceptibilityOrdered By: Robert Allison on 08-13-2023 Bacteria identified Cx Nom (Bld) GNR lactose time study clerk [facility] MCHC Auto (RBC) [Mass/Vol]Or dered By: Rem Ungmasood on 08-13-2023 MCHC (RBC) [Mass/Vol] 30.7 g/dL 32-36 [facility] Mucus LM Ql (Urine sed)Order ed By: Remus Allison on 08-13-2023 Mucus Ql (Urine sed) 0 SEEN /hpf [facility] Nitrite Test strip Ql (U)Ord ered By: Rem Keegan on 08-13-2023 Nitrite Ql (U) Negative Negative [facility] No Panel InformationOrdered By: Heydi Amaya on 08-13-2023 Urine Potassium 8.0 mmol/L Not Establ. [facility] Urine Urea Nitrogen 334 mg/dL NO RANGE EST. [facility] No Panel InformationOrdered By: Robert Allison on 08-13-2023 Estimated Creatinine Clearance Calc 31.98 ml/min [facility] Estimated GFR (MDRD) Amer 57 mL/min >60 [facility] Comment on above: GFR Calc Estimated GFR (MDRD) Non-Af Amer 47 mL/min >60 [facility] Comment on above: Non- GFR Calc Troponin I High Sensitivity 39 pg/mL 3.0-54.0 [facility] Comment on above: Please Note: New Rosi t Units and Gender Specific Reference Ranges. For more information see Policy Stat Procedure [place] High Sensitivity Troponin (TNIH) and attachments. Platelets bldOrdered By: Harriet Keegan on 08-13-2023 Platelets (Bld) [#/Vol] 412 10*3/uL 150-450 [facility] Protein Test strip Ql (U)Ord ered By: Rem Ungmasood on 08-13-2023 Protein Ql (U) 30 mg/dl Negative [facility] Serum or plasma albumin melanie urement (mass/volume)Ordered By: Remus Allison on 08-13-2023 Albumin [Mass/Vol] 2.2 g/dL 3.2-5.0 [facility] Serum or plasma albumin/glob ulin mass ratioOrdered By: Robert Allison on 08-13-2023 Albumin/Globulin [Mass ratio] 0.4 {ratio} 0.9-2.4 [facility] Serum or plasma calcium melanie urement (mass/volume)Ordered By: Robert Allison on 08-13-2023 Calcium [Mass/Vol] 10.5 mg/dL 8.5-10.1 [facility] Serum or plasma creatinine m easurement (mass/volume)Ordered By: Robert Allison on 08-13-2023 Creatinine [Mass/Vol] 1.18 mg/dL 0.55-1.02 [facility] Comment on above: The validity of the calculated GFR & GFRAA in patients over 70 years has not been determined. Clinical correlation is essential. Serum or plasma urea nitroge n measurement (mass/volume)Ordered By: Robert Allison on 08-13-2023 Urea nitrogen [Mass/Vol] 31 mg/dL 7-18 [facility] Squamous epithelial cells de tection in urine sediment by light microscopyOrdered By: Robert Allison on 08-13-2023 Epithelial cells.squamous LM Ql (Urine sed) 0 SEEN /hpf 5-10 [facility] Thin prep Papanicolaou smear with manual screeningOrdered By: Heydi Amaya on 08-13-2023 Thin prep Papanicolaou smear with manual screening 20 mmol/L Not Establ. [facility] Thin prep Papanicolaou smear with manual screeningOrdered By: Robert Allison on 08-13-2023 Thin prep Papanicolaou smear with manual screening 36 U/L 15-37 [facility] Comment on above: Moderate Hemolysis, Result may be falsely increased. Thin prep Papanicolaou smear with manual screening 08 04- [facility] Upper respiratory specimen i nfluenza A virus, influenza B virus, and severe acute resOrdered By: Robert Allison on 08-13-2023 Upper respiratory specimen influenza A virus, influenza B virus, and severe acute res [facility] Urine blood detectionOrdered By: Robert Allison on 08-13-2023 RBC Ql (U) 50 /ul Negative [facility] RBC Ql (U) 0-5 SEEN /hpf 0-5 [facility] Urine clarityOrdered By: Harriet Allison on 08-13-2023 Clarity (U) Sl. Cloudy Clear [facility] Urine color determinationOrd ered By: Robert Allison on 08-13-2023 Color (U) Yellow Yellow [facility] Urine creatinine measurement (mass/volume)Ordered By: Heydi Amaya on 08-13-2023 Creatinine (U) [Mass/Vol] 37.60 mg/dL NO RANGE EST. [facility] Urine glucose detectionOrder ed By: Robert Allison on 08-13-2023 Glucose Ql (U) 1000 mg/dl Normal [facility] Urine leukocyte esterase det ection by dipstickOrdered By: Robert Allison on 08-13-2023 Leukocyte esterase Test strip Ql (U) 500 /ul Negative [facility] Urine osmolality measurement Ordered By: Heydi Amaya on 08-13-2023 Osmolality (U) [Osmolality] 269 mOsm/KG >50 [facility] Comment on above: Normal Urine Referen ce Ranges Random: 50 - 1200 mOsm/kg H20 depending on fluid intake Random: >850 mOsm/kg after 12 hour fluid restriction 24 hour: ~300 - 900 mOsm/kg H2O Urine pHOrdered By: Robert Mahajan gur on 08-13-2023 pH (U) 5.0 [pH] 5.0 - 8.0 [facility] Urine sediment bacteria coun t by microscopy (number/high power field)Ordered By: Robert Allison on 08-13-2023 Bacteria LM.HPF (Urine sed) [#/Area] 3 /[HPF] None Seen [facility] Urine specific gravity measu rementOrdered By: Robert Allison on 08-13-2023 Specific gravity (U) [Rel density] 1.015 1.002-1.030 [facility] Urobilinogen Auto test strip Ql (U)Ordered By: Robert Allison on 08-13-2023 Urobilinogen Ql (U) Normal mg/dl Normal [facility] Absolute lymphocyte countOrd ered By: Winston Gill on 07-18-2023 Lymphocytes Auto (Unsp spec) [#/Vol] 0.92 10*3/uL 0.83-4.51 [facility] Basophil percentageOrdered B y: Winston Gill on 07-18-2023 Basophil percentage >100 SEEN /hpf 0-5 [facility] Basophils/100 WBC (Bld) 0.4 % 0-[address] [facility] Bilirubin [Mass/Vol] 0.40 mg/dL 0.20-1.00 [facility] Comment on above: For patients on eltr ombopag therapy, use of Dimension [place] TBIL is not recommended. Chloride [Moles/Vol] 95 mmol/L 98-107 [facility] Eosinophils/100 WBC (Bld) 0.7 % 0-5 [facility] Glucose [Mass/Vol] 139 mg/dL 74-106 [facility] Comment on above: Fasting Glucose resu lt greater than or equal to 126 mg/dL suggests DIABETES MELLITUS per A.D.A. criteria. Neutrophils (Bld) [#/Vol] 5.4 10*3/uL 2.0-7.7 [facility] Neutrophils/100 WBC (Bld) 76.5 % 47-70 [facility] Potassium [Moles/Vol] 3.7 mmol/L 3.5-5.1 [facility] Protein [Mass/Vol] 7.4 g/dL 6.4-8.2 [facility] Sodium [Moles/Vol] 131 mmol/L 136-145 [facility] WBC (Bld) [#/Vol] 7.0 10*3/uL 4.4-11.0 [facility] Bilirubin Test strip Ql (U)O rdered By: Winston Gill on 07-18-2023 Bilirubin Ql (U) Negative Negative [facility] Blood erythrocytes count (nu mber/volume)Ordered By: Winston Gill on 07-18-2023 RBC (Bld) [#/Vol] 3.85 10*6/uL 4.2-5.4 [facility] Blood hemoglobin measurement (mass/volume)Ordered By: Winston Gill on 07-18-2023 Hemoglobin (Bld) [Mass/Vol] 10.8 g/dL 12.0-15.0 [facility] Blood lymphocytes/100 leukoc ytesOrdered By: Winston Gill on 07-18-2023 Lymphocytes/100 WBC (Bld) 13.1 % 19-41 [facility] Blood monocytes/100 leukocyt esOrdered By: Winston Gill on 07-18-2023 Monocytes/100 WBC (Bld) 8.0 % 0-10 [facility] Blood platelet mean volumeOr dered By: Winston Gill on 07-18-2023 Platelet mean volume (Bld) [Entitic vol] 10.0 fL 6.2-12.0 [facility] Culture, urineOrdered By: Devyn Rea on 07-18-2023 Bacteria identified Cx Nom (U) Escherichia coli [facility] Bacteria identified Cx Nom (U) Klebsiella pneumoniae sp pneum [facility] Determination of erythrocyte mean corpuscular volume (MCV)Ordered By: Winston Gill on 07-18-2023 MCV (RBC) [Entitic vol] 87.0 fL 81-99 [facility] Hematocrit Auto (Bld) [Volum e fraction]Ordered By: Winston Gill on 07-18-2023 Hematocrit (Bld) [Volume fraction] 33.5 % 37-47 [facility] Ketones Test strip Ql (U)Ord ered By: Winston Gill on 07-18-2023 Ketones Ql (U) 50 mg/dl Negative [facility] Laboratory - Chemistry and C hemistry - challengeOrdered By: Winston Gill on 07-18-2023 ALP [Catalytic activity/Vol] 93 U/L 45-117 [facility] ALT [Catalytic activity/Vol] 13 U/L 13-56 [facility] CO2 [Moles/Vol] 27.0 mmol/L 21.0-32.0 [facility] Globulin (S) [Mass/Vol] 4.8 g/dL 2.2-4.2 [facility] Urea nitrogen/Creatinine [Mass ratio] 15.6 mg/mg 10-20 [facility] Laboratory - Hematology and Cell countsOrdered By: Winston Gill on 07-18-2023 Erythrocyte distribution width (RBC) [Entitic vol] 52.4 fL 35.1-43.9 [facility] Erythrocyte distribution width (RBC) [Ratio] 16.4 % 11.6-14.6 [facility] Immature granulocytes/100 WBC (Bld) 1.300 % 0.0-0.9 [facility] Comment on above: IG% - Immature Granu locytes (promyelocytes, myelocytes and metamyelocytes) > 1% indicates that a LEFT SHIFT is Present. MCH (RBC) [Entitic mass] 28.1 pg 27.0-32.0 [facility] Nucleated RBC/100 WBC (Bld) [Ratio] 0 % 0-5 [facility] MCHC Auto (RBC) [Mass/Vol]Or dered By: Winston Gill on 07-18-2023 MCHC (RBC) [Mass/Vol] 32.2 g/dL 32-36 [facility] Mucus LM Ql (Urine sed)Order ed By: Winston Gill on 07-18-2023 Mucus Ql (Urine sed) 0 SEEN /hpf [facility] Nitrite Test strip Ql (U)Ord ered By: Winston Gill on 07-18-2023 Nitrite Ql (U) Negative Negative [facility] No Panel InformationOrdered By: Winston Gill on 07-18-2023 Estimated Creatinine Clearance Calc 45.46 ml/min [facility] Estimated GFR (MDRD) Amer 85 mL/min >60 [facility] Comment on above: GFR Calc Estimated GFR (MDRD) Non-Af Amer 70 mL/min >60 [facility] Comment on above: Non- GFR Calc Platelets bldOrdered By: Tre Gill on 07-18-2023 Platelets (Bld) [#/Vol] 370 10*3/uL 150-450 [facility] Protein Test strip Ql (U)Ord ered By: Winston Gill on 07-18-2023 Protein Ql (U) 100 mg/dl Negative [facility] Serum or plasma albumin melanie urement (mass/volume)Ordered By: Winston Gill on 07-18-2023 Albumin [Mass/Vol] 2.6 g/dL 3.2-5.0 [facility] Serum or plasma albumin/glob ulin mass ratioOrdered By: Winston Gill on 07-18-2023 Albumin/Globulin [Mass ratio] 0.5 {ratio} 0.9-2.4 [facility] Serum or plasma calcium melanie urement (mass/volume)Ordered By: Winston Gill on 07-18-2023 Calcium [Mass/Vol] 10.3 mg/dL 8.5-10.1 [facility] Serum or plasma creatinine m easurement (mass/volume)Ordered By: Winston Gill on 07-18-2023 Creatinine [Mass/Vol] 0.83 mg/dL 0.55-1.02 [facility] Comment on above: The validity of the calculated GFR & GFRAA in patients over 70 years has not been determined. Clinical correlation is essential. Serum or plasma urea nitroge n measurement (mass/volume)Ordered By: Winston Gill on 07-18-2023 Urea nitrogen [Mass/Vol] 13 mg/dL 7- [facility] Squamous epithelial cells de tection in urine sediment by light microscopyOrdered By: Winston Gill on 07-18-2023 Epithelial cells.squamous LM Ql (Urine sed) 5-10 SEEN /hpf 5-10 [facility] Thin prep Papanicolaou smear with manual screeningOrdered By: Winston Gill on 07-18-2023 Thin prep Papanicolaou smear with manual screening 26 U/L 15-37 [facility] Thin prep Papanicolaou smear with manual screening 9 5-15 [facility] Urine blood detectionOrdered By: Winston Gill on 07-18-2023 RBC Ql (U) 50 /ul Negative [facility] RBC Ql (U) 0-5 SEEN /hpf 0-5 [facility] Urine clarityOrdered By: Tre Gill on 07-18-2023 Clarity (U) Cloudy Clear [facility] Urine color determinationOrd ered By: Winston Gill on 07-18-2023 Color (U) Yellow Yellow [facility] Urine glucose detectionOrder ed By: Winston Gill on 07-18-2023 Glucose Ql (U) 1000 mg/dl Normal [facility] Urine leukocyte esterase det ection by dipstickOrdered By: Winston Gill on 07-18-2023 Leukocyte esterase Test strip Ql (U) 500 /ul Negative [facility] Urine pHOrdered By: Winston castillo on 07-18-2023 pH (U) 5.0 [pH] 5.0 - 8.0 [facility] Urine sediment bacteria coun t by microscopy (number/high power field)Ordered By: Winston Gill on 07-18-2023 Bacteria LM.HPF (Urine sed) [#/Area] 3 /[HPF] None Seen [facility] Urine sediment leukocyte lisandro t count by microscopy (number/low power field)Ordered By: Winston Gill on 07-18-2023 WBC casts LM.LPF (Urine sed) [#/Area] 0-5 SEEN /lpf None Seen [facility] Urine specific gravity measu rementOrdered By: Winston Gill on 07-18-2023 Specific gravity (U) [Rel density] 1.020 1.002-1.030 [facility] Urobilinogen Auto test strip Ql (U)Ordered By: Winston Gill on 07-18-2023 Urobilinogen Ql (U) 1 mg/dl Normal [facility] No Panel Informationon 07-15 POC SARS CoV-2 Antigen Negative [facility] Amorphous sediment detection in urine sediment by light microscopyOrdered By: Cheryl Mendez on 06-01-2023 Amorphous sediment LM Ql (Urine sed) 1+ URATE [facility] Basophil percentageOrdered B y: Cheryl Mendez on 06-01-2023 Basophil percentage 5-10 SEEN /hpf 0-5 [facility] Bilirubin Test strip Ql (U)O rdered By: Cheryl Mendez on 06-01-2023 Bilirubin Ql (U) Negative Negative [facility] Ketones Test strip Ql (U)Ord ered By: Cheryl Mendez on 06-01-2023 Ketones Ql (U) Negative Negative [facility] Mucus LM Ql (Urine sed)Order ed By: Cheryl Mendez on 06-01-2023 Mucus Ql (Urine sed) 0 SEEN /hpf [facility] Nitrite Test strip Ql (U)Ord ered By: Cheryl Mendez on 06-01-2023 Nitrite Ql (U) Negative Negative [facility] No Panel InformationOrdered By: Cheryl Mendez on 06-01-2023 Urine Microalbumin/Creatinine Ratio 173.1 mg/g CRE <30 [facility] Protein Test strip Ql (U)Ord ered By: Cheryl Mendez on 06-01-2023 Protein Ql (U) 15 mg/dl Negative [facility] Squamous epithelial cells de tection in urine sediment by light microscopyOrdered By: Cheryl Mendez on 06-01-2023 Epithelial cells.squamous LM Ql (Urine sed) 0-5 SEEN /hpf 5-10 [facility] Thin prep Papanicolaou smear with manual screeningOrdered By: Cheryl Mendez on 06-01-2023 Thin prep Papanicolaou smear with manual screening 98.3 mg/L NO RANGE EST. [facility] Urine blood detectionOrdered By: Cheryl Mendez on 06-01-2023 RBC Ql (U) 25 /ul Negative [facility] RBC Ql (U) 0-5 SEEN /hpf 0-5 [facility] Urine clarityOrdered By: Dyana camerondavey Mendez on 06-01-2023 Clarity (U) Cloudy Clear [facility] Urine color determinationOrd ered By: Cheryl Mendez on 06-01-2023 Color (U) Yellow Yellow [facility] Urine creatinine measurement (mass/volume)Ordered By: Cheryl Mendez on 06-01-2023 Creatinine (U) [Mass/Vol] 56.80 mg/dL NO RANGE EST. [facility] Urine glucose detectionOrder ed By: Cheryl Mendez on 06-01-2023 Glucose Ql (U) 1000 mg/dl Normal [facility] Urine leukocyte esterase det ection by dipstickOrdered By: Cheryl Mendez on 06-01-2023 Leukocyte esterase Test strip Ql (U) 100 /ul Negative [facility] Urine pHOrdered By: Nikki Mendez on 06-01-2023 pH (U) 5.0 [pH] 5.0 - 8.0 [facility] Urine sediment bacteria coun t by microscopy (number/high power field)Ordered By: Cheryl Mendez on 06-01-2023 Bacteria LM.HPF (Urine sed) [#/Area] 3 /[HPF] None Seen [facility] Urine specific gravity measu rementOrdered By: Cheryl Mendez on 06-01-2023 Specific gravity (U) [Rel density] 1.015 1.002-1.030 [facility] Urobilinogen Auto test strip Ql (U)Ordered By: Cheryl Mendez on 06-01-2023 Urobilinogen Ql (U) Normal mg/dl Normal [facility] Basophil percentageOrdered B y: Cheryl Mendez on 05-27-2023 Basophil percentage 2.7 mg/dL 2.5-4.9 [facility] Chloride [Moles/Vol] 102 mmol/L 98-[address] [facility] [address] [facility] Glucose [Mass/Vol] 220 mg/dL 74-106 [facility] Comment on above: Glucose result great er than or equal to 200 mg/dLsuggests DIABETES MELLITUS per A.D.A. criteria. Potassium [Moles/Vol] 3.9 mmol/L 3.5-5.1 [facility] Sodium [Moles/Vol] 137 mmol/L 136-145 [facility] Laboratory - Chemistry and C hemistry - challengeOrdered By: Cheryl Mendez on 05-27-2023 CO2 [Moles/Vol] 28.0 mmol/L 21.0-32.0 [facility] Urea nitrogen/Creatinine [Mass ratio] 10.0 mg/mg 10-20 [facility] No Panel InformationOrdered By: Cheryl Mendez on 05-27-2023 Estimated GFR (MDRD) Amer 89 mL/min >60 [facility] Comment on above: GFR Calc Estimated GFR (MDRD) Non-Af Amer 73 mL/min >60 [facility] Comment on above: Non- GFR Calc Parathyroid Hormone (Intact) 164.3 pg/mL 18.4-80.1 [facility] Vitamin D 25-Hydroxy 45.4 ng/mL [facility] Comment on above: Vitamin D 25(OH) Sta tus Range Deficiency <20 ng/mL (50nmol/L) Insufficiency 20 - 30 ng/mL (50 - 75 nmol/L) Sufficiency 30 - 100 ng/mL (75 - 250 nmol/L) Toxicity >100 ng/mL (>250 nmol/L) Serum or plasma albumin melanie urement (mass/volume)Ordered By: Cheryl Mendez on 05-27-2023 Albumin [Mass/Vol] 2.9 g/dL 3.2-5.0 [facility] Serum or plasma calcium melanie urement (mass/volume)Ordered By: Cheryl Mendez on 05-27-2023 Calcium [Mass/Vol] 10.7 mg/dL 8.5-10.1 [facility] Serum or plasma creatinine m easurement (mass/volume)Ordered By: Cheryl Mendez on 05-27-2023 Creatinine [Mass/Vol] 0.80 mg/dL 0.55-1.02 [facility] Comment on above: The validity of the calculated GFR & GFRAA in patients over 70 years has not been determined. Clinical correlation is essential. Serum or plasma urea nitroge n measurement (mass/volume)Ordered By: Cheryl Mendez on 05-27-2023 Urea nitrogen [Mass/Vol] 8 mg/dL 7-18 [facility] Culture, urineOrdered By: Allan Anguiano on 03-24-2023 Bacteria identified Cx Nom (U) Klebsiella pneumoniae sp pneum [facility] Bacteria identified Cx Nom (U) Klebsiella pneumoniae sp pneum [facility] Absolute lymphocyte countOrd ered By: Dr. Smiley on 01-28-2023 Lymphocytes Auto (Unsp spec) [#/Vol] 3.27 10*3/uL 0.83-4.51 [facility] Absolute lymphocyte countOrd ered By: Dr. Lockwood on 01-28-2023 Lymphocytes Auto (Unsp spec) [#/Vol] 2.27 10*3/uL 0.83-4.51 [facility] Basophil percentageOrdered B y: Dr. Smiley on 01-28-2023 Basophils/100 WBC (Bld) 0.5 % 0-[address] [facility] Bilirubin [Mass/Vol] 0.30 mg/dL 0.20-1.00 [facility] Comment on above: For patients on eltr ombopag therapy, use of Dimension [place] TBIL is not recommended. Chloride [Moles/Vol] 99 mmol/L 98-107 [facility] Cholesterol [Mass/Vol] 145 mg/dL <200 [facility] Comment on above: <200 mg/dL Desirable 200-240 mg/dL Borderline >240 mg/dL High Risk Eosinophils/100 WBC (Bld) 2.3 % 0-5 [facility] Glucose [Mass/Vol] 182 mg/dL 74-106 [facility] Comment on above: Fasting Glucose resu lt greater than or equal to 126 mg/dL suggests DIABETES MELLITUS per A.D.A. criteria. Neutrophils (Bld) [#/Vol] 3.9 10*3/uL 2.0-7.7 [facility] Neutrophils/100 WBC (Bld) 50.0 % 47-70 [facility] Potassium [Moles/Vol] 3.6 mmol/L 3.5-5.1 [facility] Protein [Mass/Vol] 7.9 g/dL 6.4-8.2 [facility] Sodium [Moles/Vol] 134 mmol/L 136-145 [facility] Triglyceride [Mass/Vol] 119 mg/dL <199 [facility] Comment on above: The drugs N-Acetylcy steine and Metamizole may falsely depress this assay.Serum Triglycerides Reference Interval Normal <150 mg/dL Borderline high 150 - 199 mg/dL High 200 - 499 mg/dL Very High > or = 500 mg/dL WBC (Bld) [#/Vol] 7.7 10*3/uL 4.4-11.0 [facility] Basophil percentageOrdered B y: Dr. Lockwood on 01-28-2023 Basophils/100 WBC (Bld) 0.8 % 0-1 [facility] Chloride [Moles/Vol] 102 mmol/L 98-107 [facility] Eosinophils/100 WBC (Bld) 2.6 % 0-5 [facility] Glucose [Mass/Vol] 137 mg/dL 74-106 [facility] Comment on above: Fasting Glucose resu lt greater than or equal to 126 mg/dL suggests DIABETES MELLITUS per A.D.A. criteria. Neutrophils (Bld) [#/Vol] 3.8 10*3/uL 2.0-7.7 [facility] Neutrophils/100 WBC (Bld) 56.6 % 47-70 [facility] Potassium [Moles/Vol] 3.8 mmol/L 3.5-5.1 [facility] Protein [Mass/Vol] 7.4 g/dL 6.4-8.2 [facility] Sodium [Moles/Vol] 136 mmol/L 136-145 [facility] WBC (Bld) [#/Vol] 6.6 10*3/uL 4.4-11.0 [facility] Blood erythrocytes count (nu mber/volume)Ordered By: Dr. Smiley on 01-28-2023 RBC (Bld) [#/Vol] 4.10 10*6/uL 4.2-5.4 [facility] Blood erythrocytes count (nu mber/volume)Ordered By: Dr. Lockwood on 01-28-2023 RBC (Bld) [#/Vol] 3.83 10*6/uL 4.2-5.4 [facility] Blood hemoglobin measurement (mass/volume)Ordered By: Dr. Smiley on 01-28-2023 Hemoglobin (Bld) [Mass/Vol] 11.5 g/dL 12.0-15.0 [facility] Blood hemoglobin measurement (mass/volume)Ordered By: Dr. Lockwood on 01-28-2023 Hemoglobin (Bld) [Mass/Vol] 11.1 g/dL 12.0-15.0 [facility] [facility] Blood lymphocytes/100 leukoc ytesOrdered By: Dr. Smiley on 01-28-2023 Lymphocytes/100 WBC (Bld) 42.3 % 19-41 [facility] Blood lymphocytes/100 leukoc ytesOrdered By: Dr. Lockwood on 01-28-2023 Lymphocytes/100 WBC (Bld) 34.2 % 19-41 [facility] Blood monocytes/100 leukocyt esOrdered By: Dr. Smiley on 01-28-2023 Monocytes/100 WBC (Bld) 4.8 % 0-10 [facility] Blood monocytes/100 leukocyt esOrdered By: Dr. Lockwood on 01-28-2023 Monocytes/100 WBC (Bld) 5.6 % 0-10 [facility] Blood platelet mean volumeOr dered By: Dr. Smiley on 01-28-2023 Platelet mean volume (Bld) [Entitic vol] 9.8 fL 6.2-12.0 [facility] Blood platelet mean volumeOr dered By: Dr. Lockwood on 01-28-2023 Platelet mean volume (Bld) [Entitic vol] 9.3 fL 6.2-12.0 [facility] Determination of erythrocyte mean corpuscular volume (MCV)Ordered By: Dr. Smiley on 01-28-2023 MCV (RBC) [Entitic vol] 90.7 fL 81-99 [facility] Determination of erythrocyte mean corpuscular volume (MCV)Ordered By: Dr. Lockwood on 01-28-2023 MCV (RBC) [Entitic vol] 87.7 fL 81-99 [facility] Hematocrit Auto (Bld) [Volum e fraction]Ordered By: Dr. Smiley on 01-28-2023 Hematocrit (Bld) [Volume fraction] 37.2 % 37-47 [facility] Hematocrit Auto (Bld) [Volum e fraction]Ordered By: Dr. Lockwood on 01-28-2023 Hematocrit (Bld) [Volume fraction] 33.6 % 37-47 [facility] Laboratory - Chemistry and C hemistry - challengeOrdered By: Dr. Smiley on 01-28-2023 ALP [Catalytic activity/Vol] 153 U/L 45-117 [facility] ALT [Catalytic activity/Vol] 20 U/L 13-56 [facility] CO2 [Moles/Vol] 25.0 mmol/L 21.0-32.0 [facility] Globulin (S) [Mass/Vol] 4.9 g/dL 2.2-4.2 [facility] Urea nitrogen/Creatinine [Mass ratio] 10.7 mg/mg 10 [facility] Laboratory - Chemistry and C hemistry - challengeOrdered By: Dr. Lockwood on 01-28-2023 ALP [Catalytic activity/Vol] 140 U/L 45-117 [facility] CO2 [Moles/Vol] 27.0 mmol/L 21.0-32.0 [facility] Free T4 [Mass/Vol] 1.11 ng/dL 0.76-1.46 [facility] Globulin (S) [Mass/Vol] 4.5 g/dL 2.2-4.2 [facility] Urea nitrogen/Creatinine [Mass ratio] 11.5 mg/mg 06-19 [facility] Laboratory - Hematology and Cell countsOrdered By: Dr. Smiley on 01-28-2023 Erythrocyte distribution width (RBC) [Entitic vol] 49.7 fL 35.1-43.9 [facility] Erythrocyte distribution width (RBC) [Ratio] 14.9 % 11.6-14.6 [facility] Immature granulocytes/100 WBC (Bld) 0.100 % 0.0-0.9 [facility] Comment on above: IG% - Immature Granu locytes (promyelocytes, myelocytes and metamyelocytes) > 1% indicates that a LEFT SHIFT is Present. MCH (RBC) [Entitic mass] 28.0 pg 27.0-32.0 [facility] Nucleated RBC/100 WBC (Bld) [Ratio] 0 % 0-5 [facility] Laboratory - Hematology and Cell countsOrdered By: Dr. Lockwood on 01-28-2023 Erythrocyte distribution width (RBC) [Entitic vol] 47.3 fL 35.1-43.9 [facility] Erythrocyte distribution width (RBC) [Ratio] 14.8 % 11.6-14.6 [facility] Immature granulocytes/100 WBC (Bld) 0.200 % 0.0-0.9 [facility] Comment on above: IG% - Immature Granu locytes (promyelocytes, myelocytes and metamyelocytes) > 1% indicates that a LEFT SHIFT is Present. MCH (RBC) [Entitic mass] 29.0 pg 27.0-32.0 [facility] MCHC Auto (RBC) [Mass/Vol]Or dered By: Dr. Smiley on 01-28-2023 MCHC (RBC) [Mass/Vol] 30.9 g/dL -36 [facility] MCHC Auto (RBC) [Mass/Vol]Or dered By: Dr. Lockwood on 01-28-2023 MCHC (RBC) [Mass/Vol] 33.0 g/dL -36 [facility] Comment on above: Delta: 30.9 on 01/280 No Panel InformationOrdered By: Dr. Lockwood on 01-28-2023 Estimated Creatinine Clearance Calc 37.74 ml/min [facility] Estimated GFR (MDRD) Amer 91 mL/min >60 [facility] Comment on above: GFR Calc Estimated GFR (MDRD) Non-Af Amer 75 mL/min >60 [facility] Comment on above: Non- GFR Calc Free Triiodothyronine (T3) pg/dL 2.9 pg/mL 2.18-3.98 [facility] No Panel InformationOrdered By: Dr. Smiley on 01-28-2023 Estimated GFR (MDRD) Amer 84 mL/min >60 [facility] Comment on above: GFR Calc Estimated GFR (MDRD) Non-Af Amer 70 mL/min >60 [facility] Comment on above: Non- GFR Calc Parathyroid Hormone (Intact) 112.9 pg/mL 18.4-80.1 [facility] Thyroid Stimulating Hormone (TSH) 0.02 uIU/mL 0.358-3.74 [facility] Vitamin D 25-Hydroxy 66.1 ng/mL [facility] Comment on above: Vitamin D 25(OH) Sta tus Range Deficiency <20 ng/mL (50nmol/L) Insufficiency 20 - 30 ng/mL (50 - 75 nmol/L) Sufficiency 30 - 100 ng/mL (75 - 250 nmol/L) Toxicity >100 ng/mL (>250 nmol/L) Platelets bldOrdered By: Dr. Smiley on 01-28-2023 Platelets (Bld) [#/Vol] 349 10*3/uL 150-450 [facility] Platelets bldOrdered By: Dr. Lockwood on 01-28-2023 Platelets (Bld) [#/Vol] 285 10*3/uL 150-450 [facility] Serum or plasma albumin melanie urement (mass/volume)Ordered By: Dr. Smiley on 01-28-2023 Albumin [Mass/Vol] 3.0 g/dL 3.2-5.0 [facility] Serum or plasma albumin melanie urement (mass/volume)Ordered By: Dr. Lockwood on 01-28-2023 Albumin [Mass/Vol] 2.9 g/dL 3.2-5.0 [facility] Serum or plasma albumin/glob ulin mass ratioOrdered By: Dr. Smiley on 01-28-2023 Albumin/Globulin [Mass ratio] 0.6 {ratio} 0.9-2.4 [facility] Serum or plasma calcium melanie urement (mass/volume)Ordered By: Dr. Smiley on 01-28-2023 Calcium [Mass/Vol] 11.5 mg/dL 8.5-10.1 [facility] Serum or plasma calcium melanie urement (mass/volume)Ordered By: Dr. Lockwood on 01-28-2023 Calcium [Mass/Vol] 11.4 mg/dL 8.5-10.1 [facility] Serum or plasma cholesterol in HDL measurement (mass/volume)Ordered By: Dr. Smiley on 01-28-2023 Cholesterol in HDL [Mass/Vol] 46 mg/dL >40 [facility] Comment on above: The drugs N-Acetylcy steine and Metamizole may falsely depress this assay. Reference Range HDL <40 mg/dL Low HDL Cholesterol HDL >or= 60 mg/dL High HDL Cholesterol Serum or plasma cholesterol in VLDL measurement (mass/volume)Ordered By: Dr. Smiley on 01-28-2023 Cholesterol in VLDL [Mass/Vol] 24 mg/dL 5-40 [facility] Serum or plasma creatinine m easurement (mass/volume)Ordered By: Dr. Smiley on 01-28-2023 Creatinine [Mass/Vol] 0.84 mg/dL 0.55-1.02 [facility] Comment on above: The validity of the calculated GFR & GFRAA in patients over 70 years has not been determined. Clinical correlation is essential. Serum or plasma creatinine m easurement (mass/volume)Ordered By: Dr. Lockwood on 01-28-2023 Creatinine [Mass/Vol] 0.78 mg/dL 0.55-1.02 [facility] Comment on above: The validity of the calculated GFR & GFRAA in patients over 70 years has not been determined. Clinical correlation is essential. Serum or plasma low density lipoprotein (LDL) cholesterol measurement (mass/volume)Ordered By: Dr. Smiley on 01-28-2023 Cholesterol in LDL [Mass/Vol] 75 mg/dL 0-130 [facility] Serum or plasma urea nitroge n measurement (mass/volume)Ordered By: Dr. Smiley on 01-28-2023 Urea nitrogen [Mass/Vol] 9 mg/dL 7-18 [facility] Thin prep Papanicolaou smear with manual screeningOrdered By: Dr. Smiley on 01-28-2023 Thin prep Papanicolaou smear with manual screening 22 U/L [facility] Thin prep Papanicolaou smear with manual screening 10 01-12 [facility] Thin prep Papanicolaou smear with manual screeningOrdered By: Dr. Lockwood on 01-28-2023 Thin prep Papanicolaou smear with manual screening 18 U/L [facility] Thin prep Papanicolaou smear with manual screening 7 - [facility] Whole blood hemoglobin A1c/t otal hemoglobin ratio (mass fraction)Ordered By: Dr. Smiley on 01-28-2023 HbA1c (Bld) [Mass fraction] 7.5 % 3.8-5.6 [facility] Comment on above: Normal < 5.7 % Predi abetic 5.7 - 6.4 % Diabetic >or= 6.5 % Please note range changes. Basophil percentageOrdered B y: Dr. Smiley on 12-09-2022 Bilirubin [Mass/Vol] 0.20 mg/dL 0.20-1.00 [facility] Comment on above: For patients on eltr ombopag therapy, use of Dimension [place] TBIL is not recommended. Chloride [Moles/Vol] 101 mmol/L 98-107 [facility] Glucose [Mass/Vol] 168 mg/dL 74-106 [facility] Comment on above: Fasting Glucose resu lt greater than or equal to 126 mg/dL suggests DIABETES MELLITUS per A.D.A. criteria. Potassium [Moles/Vol] 3.7 mmol/L 3.5-5.1 [facility] Protein [Mass/Vol] 8.7 g/dL 6.4-8.2 [facility] Sodium [Moles/Vol] 133 mmol/L 136-145 [facility] Laboratory - Chemistry and C hemistry - challengeOrdered By: Dr. Smiley on 12-09-2022 ALP [Catalytic activity/Vol] 164 U/L 45-117 [facility] ALT [Catalytic activity/Vol] 27 U/L 13-56 [facility] CO2 [Moles/Vol] 25.0 mmol/L 21.0-32.0 [facility] Globulin (S) [Mass/Vol] 5.4 g/dL 2.2-4.[address] [facility] Urea nitrogen/Creatinine [Mass ratio] 10.7 mg/mg 10-20 [facility] No Panel InformationOrdered By: Dr. Smiley on 12-09-2022 Estimated GFR (MDRD) Amer 67 mL/min >60 [facility] Comment on above: GFR Calc Estimated GFR (MDRD) Non-Af Amer 55 mL/min >60 [facility] Comment on above: Non- GFR Calc Parathyroid Hormone (Intact) 175.0 pg/mL 18.4-80.1 [facility] Vitamin D 25-Hydroxy 92.6 ng/mL [facility] Comment on above: Vitamin D 25(OH) Sta tus Range Deficiency <20 ng/mL (50nmol/L) Insufficiency 20 - 30 ng/mL (50 - 75 nmol/L) Sufficiency 30 - 100 ng/mL (75 - 250 nmol/L) Toxicity >100 ng/mL (>250 nmol/L) Serum or plasma albumin melanie urement (mass/volume)Ordered By: Dr. Smiley on 12-09-2022 Albumin [Mass/Vol] 3.3 g/dL 3.2-5.0 [facility] Serum or plasma albumin/glob ulin mass ratioOrdered By: Dr. Smiley on 12-09-2022 Albumin/Globulin [Mass ratio] 0.6 {ratio} 0.9-2.4 [facility] Serum or plasma calcium melanie urement (mass/volume)Ordered By: Dr. Smiley on 12-09-2022 Calcium [Mass/Vol] 11.4 mg/dL 8.5-10.1 [facility] Serum or plasma creatinine m easurement (mass/volume)Ordered By: Dr. Smiley on 12-09-2022 Creatinine [Mass/Vol] 1.03 mg/dL 0.55-1.02 [facility] Comment on above: The validity of the calculated GFR & GFRAA in patients over 70 years has not been determined. Clinical correlation is essential. Serum or plasma urea nitroge n measurement (mass/volume)Ordered By: Dr. Smiley on 12-09-2022 Urea nitrogen [Mass/Vol] 11 mg/dL 7-18 [facility] Thin prep Papanicolaou smear with manual screeningOrdered By: Dr. Smiley on 12-09-2022 Thin prep Papanicolaou smear with manual screening 20 U/L 15-37 [facility] Thin prep Papanicolaou smear with manual screening 7 5-15 [facility] Whole blood hemoglobin A1c/t otal hemoglobin ratio (mass fraction)Ordered By: Dr. Smiley on 12-09-2022 HbA1c (Bld) [Mass fraction] 7.4 % 3.8-5.6 [facility] Comment on above: Normal < 5.7 % Predi abetic 5.7 - 6.4 % Diabetic >or= 6.5 % Please note range changes. Absolute lymphocyte counton 07-14-2022 Lymphocytes Auto (Unsp spec) [#/Vol] 2.79 10*3/uL 0.83-4.51 [facility] Work Phone: Basophil percentageon 2021 Basophil percentage 25-50 SEEN /hpf 0-5 [facility] Work Phone: Basophils/100 WBC (Bld) 0.5 % 0-1 [facility] Work Phone: Bilirubin [Mass/Vol] 0.30 mg/dL 0.20-1.00 [facility] Work Phone: [phone] Comment on above: For patients on eltr ombopag therapy, use of Dimension [place] TBIL is not recommended. Chloride [Moles/Vol] 102 mmol/L 98-107 [facility] Work Phone: Eosinophils/100 WBC (Bld) 3.2 % 0-5 [facility] Work Phone: Glucose [Mass/Vol] 143 mg/dL 74-106 [facility] Work Phone: Comment on above: Fasting Glucose resu lt greater than or equal to 126 mg/dL suggests DIABETES MELLITUS per A.D.A. criteria. Neutrophils (Bld) [#/Vol] 4.5 10*3/uL 2.0-7.7 [facility] Work Phone: [phone] Neutrophils/100 WBC (Bld) 54.7 % 47-70 [facility] Work Phone: Potassium [Moles/Vol] 4.9 mmol/L 3.5-5.1 [facility] Work Phone: Comment on above: Moderate Hemolysis, Result may be falsely increased. Protein [Mass/Vol] 8.3 g/dL 6.4-8.2 [facility] Work Phone: Sodium [Moles/Vol] 136 mmol/L 136-145 [facility] Work Phone: WBC (Bld) [#/Vol] 8.1 10*3/uL 4.4-11.0 [facility] Work Phone: Bilirubin Test strip Ql (U)o n 07-14-2022 Bilirubin Ql (U) Negative Negative [facility] Work Phone: [phone] Blood erythrocytes count (nu mber/volume)on 07-14-2022 RBC (Bld) [#/Vol] 4.15 10*6/uL 4.2-5.4 [facility] Work Phone: Blood hemoglobin measurement (mass/volume)on 07-14-2022 Hemoglobin (Bld) [Mass/Vol] 12.0 g/dL 12.0-15.0 [facility] Work Phone: Blood lymphocytes/100 leukoc yteson 07-14-2022 Lymphocytes/100 WBC (Bld) 34.4 % 19-41 [facility] Work Phone: Blood monocytes/100 leukocyt eson 07-14-2022 Monocytes/100 WBC (Bld) 6.8 % 0-10 [facility] Work Phone: Blood platelet mean volumeon 07-14-2022 Platelet mean volume (Bld) [Entitic vol] 10.2 fL 6.2-12.0 [facility] Work Phone: Determination of erythrocyte mean corpuscular volume (MCV)on 07-14-2022 MCV (RBC) [Entitic vol] 90.8 fL 81-99 [facility] Work Phone: Hematocrit Auto (Bld) [Volum e fraction]on 07-14-2022 Hematocrit (Bld) [Volume fraction] 37.7 % 37-47 [facility] Work Phone: Ketones Test strip Ql (U)on 07-14-2022 Ketones Ql (U) Negative Negative [facility] Work Phone: Laboratory - Chemistry and C hemistry - challengeon 07-14-2022 ALP [Catalytic activity/Vol] 131 U/L 45-117 [facility] Work Phone: ALT [Catalytic activity/Vol] 33 U/L 13-56 [facility] Work Phone: CO2 [Moles/Vol] 31.0 mmol/L 21.0-32.0 [facility] Work Phone: Globulin (S) [Mass/Vol] 5.0 g/dL 2.2-4.2 [facility] Work Phone: Urea nitrogen/Creatinine [Mass ratio] 14.7 mg/mg 10-20 [facility] Work Phone: Laboratory - Hematology and Cell countson 07-14-2022 Erythrocyte distribution width (RBC) [Entitic vol] 49.9 fL 35.1-43.9 [facility] Work Phone: Erythrocyte distribution width (RBC) [Ratio] 15.1 % 11.6-14.6 [facility] Work Phone: Immature granulocytes/100 WBC (Bld) 0.400 % 0.0-0.9 [facility] Work Phone: Comment on above: IG% - Immature Granu locytes (promyelocytes, myelocytes and metamyelocytes) > 1% indicates that a LEFT SHIFT is Present. MCH (RBC) [Entitic mass] 28.9 pg 27.0-32.0 [facility] Work Phone: Nucleated RBC/100 WBC (Bld) [Ratio] 0 % 0-5 [facility] Work Phone: MCHC Auto (RBC) [Mass/Vol]on 07-14-2022 MCHC (RBC) [Mass/Vol] 31.8 g/dL 32-36 [facility] Work Phone: Mucus LM Ql (Urine sed)on Mucus Ql (Urine sed) 0 SEEN /hpf [facility] Work Phone: Nitrite Test strip Ql (U)on 07-14-2022 Nitrite Ql (U) Negative Negative [facility] Work Phone: No Panel Informationon 07-14 Estimated Creatinine Clearance Calc 40.37 ml/min [facility] Work Phone: Estimated GFR (MDRD) Amer 73 mL/min >60 [facility] Work Phone: Comment on above: GFR Calc Estimated GFR (MDRD) Non-Af Amer 60 mL/min >60 [facility] Work Phone: Comment on above: Non- GFR Calc Platelets bldon 07-14-2022 Platelets (Bld) [#/Vol] 267 10*3/uL 150-450 [facility] Work Phone: Protein Test strip Ql (U)on 07-14-2022 Protein Ql (U) 30 mg/dl Negative [facility] Work Phone: Serum or plasma albumin melanie urement (mass/volume)on 07-14-2022 Albumin [Mass/Vol] 3.3 g/dL 3.2-5.0 [facility] Work Phone: Serum or plasma albumin/glob ulin mass ratioon 07-14-2022 Albumin/Globulin [Mass ratio] 0.7 {ratio} 0.9-2.4 [facility] Work Phone: Serum or plasma calcium melanie urement (mass/volume)on 07-14-2022 Calcium [Mass/Vol] 11.4 mg/dL 8.5-10.1 [facility] Work Phone: Serum or plasma creatinine m easurement (mass/volume)on 07-14-2022 Creatinine [Mass/Vol] 0.95 mg/dL 0.55-1.02 [facility] Work Phone: Comment on above: The validity of the calculated GFR & GFRAA in patients over 70 years has not been determined. Clinical correlation is essential. Serum or plasma urea nitroge n measurement (mass/volume)on 07-14-2022 Urea nitrogen [Mass/Vol] 14 mg/dL 7-18 [facility] Work Phone: Squamous epithelial cells de tection in urine sediment by light microscopyon 07-14-2022 Epithelial cells.squamous LM Ql (Urine sed) 0-5 SEEN /hpf 5-10 [facility] Work Phone: Thin prep Papanicolaou smear with manual screeningon 07-14-2022 Thin prep Papanicolaou smear with manual screening 44 U/L 15-37 [facility] Work Phone: Comment on above: Moderate Hemolysis, Result may be falsely increased. Thin prep Papanicolaou smear with manual screening 3 5-15 [facility] Work Phone: Urine blood detectionon 07-01 RBC Ql (U) 25 /ul Negative [facility] Work Phone: RBC Ql (U) 0 SEEN /hpf 0-5 [facility] Work Phone: Urine clarityon 07-14-2022 Clarity (U) Sl. Cloudy Clear [facility] Work Phone: Urine color determinationon 07-14-2022 Color (U) Yellow Yellow [facility] Work Phone: Urine glucose detectionon Glucose Ql (U) 1000 mg/dl Normal [facility] Work Phone: Urine leukocyte esterase det ection by dipstickon 07-14-2022 Leukocyte esterase Test strip Ql (U) 500 /ul Negative [facility] Work Phone: Urine pHon 07-14-2022 pH (U) 6.0 [pH] 5.0 - 8.0 [facility] Work Phone: Urine sediment bacteria coun t by microscopy (number/high power field)on 07-14-2022 Bacteria LM.HPF (Urine sed) [#/Area] 3 /[HPF] None Seen [facility] Work Phone: Urine specific gravity measu rementon 07-14-2022 Specific gravity (U) [Rel density] 1.015 1.002-1.030 [facility] Work Phone: Urobilinogen Auto test strip Ql (U)on 07-14-2022 Urobilinogen Ql (U) Normal mg/dl Normal [facility] Work Phone: CBC W Auto Differential pane l (Bld)on 05-07-2022 Basophils (Bld) [#/Vol] 0.05 10*3/uL Normal <0.11 [facility] Comment on above: Order Comment: Speci men Type: BLOOD SPECIMEN Ordering Facility: [facility] Address: [address] [place] [address] Performed By: #### 5 7021-8 #### [facility] CLIA [id number] [address] [place] [address] [place] Basophils/100 WBC (Bld) 0.7 % Normal [facility] Comment on above: Order Comment: Speci men Type: BLOOD SPECIMEN Ordering Facility: [facility] Address: [address] [place] [address] Performed By: #### 5 7021-8 #### [facility] CLIA [id number] [address] [place] [address] [place] Differential cell count method Nom (Bld) Auto Normal [facility] Comment on above: Order Comment: Speci men Type: BLOOD SPECIMEN Ordering Facility: [facility] Address: [address] [place] [address] Performed By: #### 5 7021-8 #### [facility] CLIA [id number] [address] [place] [address] [place] Eosinophils (Bld) [#/Vol] 0.32 10*3/uL Normal <0.46 [facility] Comment on above: Order Comment: Speci men Type: BLOOD SPECIMEN Ordering Facility: [facility] Address: [address] [place], [place] [id number] Performed By: #### 5 7021-8 #### [facility] CLIA [id number] [address] [place] [address] [place] Eosinophils/100 WBC (Bld) 4.7 % Normal [facility] Comment on above: Order Comment: Speci men Type: BLOOD SPECIMEN Ordering Facility: [facility] Address: [address] [place], [place] [id number] Performed By: #### 5 7021-8 #### [facility] CLIA [id number] [address] [place] [address] [place] Erythrocyte distribution width (RBC) [Ratio] 14.6 % Normal 11.5-15.0 [facility] Comment on above: Order Comment: Speci men Type: BLOOD SPECIMEN Ordering Facility: [facility] Address: [address] [place] [address] Performed By: #### 5 7021-8 #### [facility] CLIA [id number] [address] [place] [address] [place] Hematocrit (Bld) [Volume fraction] 37.2 % Normal 36.0-46.0 [facility] Comment on above: Order Comment: Speci men Type: BLOOD SPECIMEN Ordering Facility: [facility] Address: [address] [place] [address] Performed By: #### 5 7021-8 #### [facility] [id number] [address] [place] [address] [place] Hemoglobin (Bld) [Mass/Vol] 12.0 g/dL Normal 11.5-15.5 [facility] Comment on above: Order Comment: Speci men Type: BLOOD SPECIMEN Ordering Facility: [facility] Address: [address] [place] [address] Performed By: #### 5 7021-8 #### [facility] [id number] [address] [place] [address] [place] IMMATURE GRAN % 0.1 % Normal [facility] Comment on above: Order Comment: Speci men Type: BLOOD SPECIMEN Ordering Facility: [facility] Address: [address] [place] [address] Performed By: #### 5 7021-8 #### [facility] [id number] [address] [place] [address] [place] IMMATURE GRAN ABS <0.03 Normal <0.10 [facility] Comment on above: Order Comment: Speci men Type: BLOOD SPECIMEN Ordering Facility: [facility] Address: [address] [place], [place] [id number] Performed By: #### 5 7021-8 #### [facility] CLIA [id number] [address] [place] [address] [place] Lymphocytes (Bld) [#/Vol] 2.03 10*3/uL Normal 1.00-4.00 [facility] Comment on above: Order Comment: Speci men Type: BLOOD SPECIMEN [facility]ing Facility: [facility] Address: [address] [place] [address] Performed By: #### 5 7021-8 #### [facility] CLIA [id number] [address] [place] [address] [place] Lymphocytes/100 WBC (Bld) 29.7 % Normal [facility] Comment on above: Order Comment: Speci men Type: BLOOD SPECIMEN Ordering Facility: [facility] Address: [address] [place] [address] Performed By: #### 5 7021-8 #### [facility] CLIA [id number] [address] [place] [address] [place] MCH (RBC) [Entitic mass] 28.5 pg Normal 26.0-34.0 [facility] Comment on above: Order Comment: Speci men Type: BLOOD SPECIMEN Ordering Facility: [facility] Address: [address] Performed By: #### 5 7021-8 #### [facility] CLIA [id number] [address] [place] [address] [place] MCHC (RBC) [Mass/Vol] 32.3 g/dL Normal 30.5-36.0 [facility] Comment on above: Order Comment: Speci men Type: BLOOD SPECIMEN Ordering Facility: [facility] Address: [address] [place], [place] [address] Performed By: #### 5 7021-8 #### [facility] CLIA [id number] [address] [place] [address] [place] MCV (RBC) [Entitic vol] 88.4 fL Normal 80.0-100.0 [facility] Comment on above: Order Comment: Speci men Type: BLOOD SPECIMEN [facility]ing Facility: [facility] Address: [address] [place] [address] Performed By: #### 5 7021-8 #### [facility] CLIA [id number] [address] [place] [address] [place] Monocytes (Bld) [#/Vol] 0.47 10*3/uL Normal <0.87 [facility] Comment on above: Order Comment: Speci men Type: BLOOD SPECIMEN Ordering Facility: [facility] Address: [address] [place] [address] Performed By: #### 5 7021-8 #### [facility] CLIA [id number] [address] [place] [address] [place] Monocytes/100 WBC (Bld) 6.9 % Normal [facility] Comment on above: Order Comment: Speci men Type: BLOOD SPECIMEN Ordering Facility: [facility] Address: [address] [place], [place] [address] Performed By: #### 5 7021-8 #### [facility] CLIA [id number] [address] [place] [address] [place] Neutrophils (Bld) [#/Vol] 3.96 10*3/uL Normal 1.45-7.50 [facility] Comment on above: Order Comment: Speci men Type: BLOOD SPECIMEN Ordering Facility: [facility] Address: [address] [place], [place] [address] Performed By: #### 5 7021-8 #### [facility] CLIA [id number] [address] [place] [address] [place] Neutrophils/100 WBC (Bld) 57.9 % Normal [facility] Comment on above: Order Comment: Speci men Type: BLOOD SPECIMEN Ordering Facility: [facility] Address: [address] [place] [address] Performed By: #### 5 7021-8 #### [facility] CLIA [id number] [address] [place] [address] [place] Nucleated RBC (Bld) [#/Vol] 10*3/uL Normal <0.01 [facility] Comment on above: Order Comment: Speci men Type: BLOOD SPECIMEN Ordering Facility: [facility] Address: [address] [place] [address] Performed By: #### 5 7021-8 #### [facility] CLIA [id number] [address] [place] [address] [place] Nucleated RBC/100 WBC (Bld) [Ratio] 0.0 /100 WBC Normal [facility] Comment on above: Order Comment: Speci men Type: BLOOD SPECIMEN Ordering Facility: [facility] Address: [address] [place] [address] Performed By: #### 5 7021-8 #### [facility] CLIA [id number] [address] [place] [address] [place] Platelet mean volume (Bld) [Entitic vol] 10.0 fL Normal 9.0-12.7 [facility] Comment on above: Order Comment: Speci men Type: BLOOD SPECIMEN Ordering Facility: [facility] Address: [address] [place] [address] Performed By: #### 5 7021-8 #### [facility] CLIA [id number] [address] [place] [address] [place] Platelets (Bld) [#/Vol] 246 10*3/uL Normal 150-400 [facility] Comment on above: Order Comment: Speci men Type: BLOOD SPECIMEN Ordering Facility: [facility] Address: [address] [place] [address] [place] [address] Performed By: #### 5 7021-8 #### [facility] CLIA [id number] [address] [place] [address] [place] RBC (Bld) [#/Vol] 4.21 10*6/uL Normal 3.90-5.20 [facility] Comment on above: Order Comment: Speci men Type: BLOOD SPECIMEN Ordering Facility: [facility] Address: [address] [place] [address] Performed By: #### 5 7021-8 #### [facility] CLIA [id number] [address] [place] [address] [place] WBC (Bld) [#/Vol] 6.84 10*3/uL Normal 3.70-11.00 [facility] Comment on above: Order Comment: Speci men Type: BLOOD SPECIMEN Ordering Facility: [facility] Address: [address] [place] [address] Performed By: #### 5 7021-8 #### [facility] CLIA [id number] [address] [place] [address] [place] CNOVSPon 05-07-2022 CNOVS Visit (SP) Office (EVELYN) OLGA DONALDSON ([id number]) 1945 F Date Time Provider Department 05/07/22 1:30 PM LASHONDA IRAHETA During your visit today, we recorded the following information about you: Temperature Pulse Blood pressure Weight 97.2 degrees 66/minute 160/68 73.7 kg Height 1.581 m 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 APRN.MARLI 05/07/2022 2:25 PM Signed Chief Complaint Patient [...] an every 2-week basis for 4 cycles ([id number]). Completed a year of trastuzumab 06/16/06. Referred back or anemia. Admitted to [facility] 12/02/2019 for chest pain with ambulation. [...] 1.00 - 4.00 k/uL 2.70 2.30 2.03 Boundary% % 7.0 6.6 6.9 Abs Boundary <0.87 k/uL 0.49 0.47 0.47 Eosin% % 4.9 3.2 4.7 Abs Eosin <0.46 k/uL 0.34 0.23 0.32 Baso% % 0.7 0.6 0.7 Abs Baso <0.11 k/uL 0.05 0.04 0.05 Immature (more content not included)... Normal [facility] Ferritin SerPl-mCncon 2021 Ferritin [Mass/Vol] 808.0 ng/mL High 14.7-205.1 [facility] Comment on above: Order Comment: Speci men Type: BLOOD SPECIMEN [facility]ing Facility: [facility] Address: [address] [place] [address] Performed By: #### 5 0190-8, 2275-11 #### [facility] CLIA [id number] [address] [place] [address] [place] [address] [place] Iron and Iron binding capaci ty panelon 05-07-2022 Iron [Mass/Vol] 38 ug/dL Low 41-186 [facility] Comment on above: Order Comment: Speci men Type: BLOOD SPECIMEN Ordering Facility: [facility] Address: [address] [place] [address] Performed By: #### 5 0190-8, 2275- #### [facility] CLIA [id number] [address] [place] [address] [place] [facility] Iron binding capacity [Mass/Vol] 240 ug/dL Normal 232-386 [facility] Comment on above: Order Comment: Speci men Type: BLOOD SPECIMEN Ordering Facility: [facility] Address: [address] [place] [address] Performed By: #### 5 0190-8, 2276-4 #### [facility] CLIA [id number] [address] [place] [address] [place] Iron/TIBC [Molar ratio] 15.8 % Normal 15.0-57.0 [facility] Comment on above: Order Comment: Speci men Type: BLOOD SPECIMEN [facility]ing Facility: [facility] Address: [address] [place] [address] Performed By: #### 5 0190-8, 2276-4 #### [facility] CLIA [id number] [address] [place] [address] [place] Justine 02-10-2022 JOCELYNE Telephone (EVELYN) OLGA DONALDSON ([id number]) 1945 F Date Time Provider Department 02/10/22 [...] Date Reviewed: 05/07/2021 Reviewed by: 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 APRN.MANAGER PATHOLOGY - Fully Assessed Reason for Visit: Results [...] MIST) 0.65 % nasal spray Use 1 Wren in the nose as needed. - diltiazem [...] by STACIE VARNER LPN on 02/10/22 Normal [facility] CBC W Auto Differential pane l (Bld)on 02-03-2022 Basophils (Bld) [#/Vol] 0.04 10*3/uL Normal <0.11 [facility] Comment on above: Order Comment: Speci men Type: BLOOD SPECIMEN Ordering Facility: [facility] Address: [address] [place] [address] Performed By: #### 5 7021-8 #### [facility] CLIA [id number] [address] [place] [address] [place] Basophils/100 WBC (Bld) 0.6 % Normal [facility] Comment on above: Order Comment: Speci men Type: BLOOD SPECIMEN Ordering Facility: [facility] Address: [address] [place] [address] Performed By: #### 5 7021-8 #### [facility] CLIA [id number] [address] [place] [address] [place] Differential cell count method Nom (Bld) Auto Normal [facility] Comment on above: Order Comment: Speci men Type: BLOOD SPECIMEN Ordering Facility: [facility] Address: [address] [place] [address] Performed By: #### 5 7021-8 #### [facility] CLIA [id number] [address] [place] [address] [place] Eosinophils (Bld) [#/Vol] 0.23 10*3/uL Normal <0.46 [facility] Comment on above: Order Comment: Speci men Type: BLOOD SPECIMEN Ordering Facility: [facility] Address: [address] [place] [address] Performed By: #### 5 7021-8 #### [facility] CLIA [id number] [address] [place] [address] [place] Eosinophils/100 WBC (Bld) 3.2 % Normal [facility] Comment on above: Order Comment: Speci men Type: BLOOD SPECIMEN Ordering Facility: [facility] Address: [address] [place] [address] Performed By: #### 5 7021-8 #### [facility] CLIA [id number] [address] [place] [address] [place] Erythrocyte distribution width (RBC) [Ratio] 14.3 % Normal 11.5-15.0 [facility] Comment on above: Order Comment: Speci men Type: BLOOD SPECIMEN Ordering Facility: [facility] Address: [address] [place] [address] Performed By: #### 5 7021-8 #### [facility] CLIA [id number] [address] [place] [address] [place] Hematocrit (Bld) [Volume fraction] 39.7 % Normal 36.0-46.0 [facility] Comment on above: Order Comment: Speci men Type: BLOOD SPECIMEN Ordering Facility: [facility] Address: [address] [place] [address] Performed By: #### 5 7021-8 #### [facility] CLIA [id number] [address] [place] [address] [place] Hemoglobin (Bld) [Mass/Vol] 12.8 g/dL Normal 11.5-15.5 [facility] Comment on above: Order Comment: Speci men Type: BLOOD SPECIMEN Ordering Facility: [facility] Address: [address] [place] [address] Performed By: #### 5 7021-8 #### [facility] CLIA [id number] [address] [place] [address] [place] IMMATURE GRAN % 0.3 % Normal [facility] Comment on above: Order Comment: Speci men Type: BLOOD SPECIMEN Ordering Facility: [facility] Address: [address] [place] [address] Performed By: #### 5 7021-8 #### [facility] [id number] [address] [place] [address] [place] IMMATURE GRAN ABS <0.03 Normal <0.10 [facility] Comment on above: Order Comment: Speci men Type: BLOOD SPECIMEN Ordering Facility: [facility] Address: [address] [place] [address] Performed By: #### 5 7021-8 #### [facility] CLIA [id number] [address] [place] [address] [place] Lymphocytes (Bld) [#/Vol] 2.30 10*3/uL Normal 1.00-4.00 [facility] Comment on above: Order Comment: Speci men Type: BLOOD SPECIMEN Ordering Facility: [facility] Address: [address] [place] [address] Performed By: #### 5 7021-8 #### [facility] CLIA [id number] [address] [place] [address] [place] Lymphocytes/100 WBC (Bld) 32.1 % Normal [facility] Comment on above: Order Comment: Speci men Type: BLOOD SPECIMEN Ordering Facility: [facility] Address: [address] [place] [address] Performed By: #### 5 7021-8 #### [facility] CLIA [id number] [address] [place] [address] [place] MCH (RBC) [Entitic mass] 28.8 pg Normal 26.0-34.0 [facility] Comment on above: Order Comment: Speci men Type: BLOOD SPECIMEN Ordering Facility: [facility] Address: [address] [place] [address] Performed By: #### 5 7021-8 #### [facility] CLIA [id number] [address] [place] [address] [place] MCHC (RBC) [Mass/Vol] 32.2 g/dL Normal 30.5-36.0 [facility] Comment on above: Order Comment: Speci men Type: BLOOD SPECIMEN Ordering Facility: [facility] Address: [address] [place] [address] Performed By: #### 5 7021-8 #### [facility] CLIA [id number] [address] [place] [address] [place] MCV (RBC) [Entitic vol] 89.4 fL Normal 80.0-100.0 [facility] Comment on above: Order Comment: Speci men Type: BLOOD SPECIMEN Ordering Facility: [facility] Address: [address] [place] [address] Performed By: #### 5 7021-8 #### [facility] CLIA [id number] [address] [place] [address] [place] Monocytes (Bld) [#/Vol] 0.47 10*3/uL Normal <0.87 [facility] Comment on above: Order Comment: Speci men Type: BLOOD SPECIMEN Ordering Facility: [facility] Address: [address] [place] [address] Performed By: #### 5 7021-8 #### [facility] CLIA [id number] [address] [place] [address] [place] Monocytes/100 WBC (Bld) 6.6 % Normal [facility] Comment on above: Order Comment: Speci men Type: BLOOD SPECIMEN [facility]ing Facility: [facility] Address: [address] [place] [address] Performed By: #### 5 7021-8 #### [facility] CLIA [id number] [address] [place] [address] [place] Neutrophils (Bld) [#/Vol] 4.11 10*3/uL Normal 1.45-7.50 [facility] Comment on above: Order Comment: Speci men Type: BLOOD SPECIMEN Ordering Facility: [facility] Address: [address] [place] [address] Performed By: #### 5 7021-8 #### [facility] CLIA [id number] [address] [place] [address] [place] Neutrophils/100 WBC (Bld) 57.2 % Normal [facility] Comment on above: Order Comment: Speci men Type: BLOOD SPECIMEN Ordering Facility: [facility] Address: [address] [place] [address] Performed By: #### 5 7021-8 #### [facility] CLIA [id number] [address] [place] [address] [place] Nucleated RBC (Bld) [#/Vol] 10*3/uL Normal <0.01 [facility] Comment on above: Order Comment: Speci men Type: BLOOD SPECIMEN Ordering Facility: [facility] Address: [address] [place] [address] Performed By: #### 5 7021-8 #### [facility] CLIA [id number] [address] [place] [address] [place] Nucleated RBC/100 WBC (Bld) [Ratio] 0.0 /100 WBC Normal [facility] Comment on above: Order Comment: Speci men Type: BLOOD SPECIMEN Ordering Facility: [facility] Address: [address] [place] [address] Performed By: #### 5 7021-8 #### [facility] CLIA [id number] [address] [place] [address] [place] Platelet mean volume (Bld) [Entitic vol] 10.3 fL Normal 9.0-12.7 [facility] Comment on above: Order Comment: Speci men Type: BLOOD SPECIMEN Ordering Facility: [facility] Address: [address] [place] [address] Performed By: #### 5 7021-8 #### [facility] CLIA [id number] [address] [place] [address] [place] Platelets (Bld) [#/Vol] 265 10*3/uL Normal 150-400 [facility] Comment on above: Order Comment: Speci men Type: BLOOD SPECIMEN Ordering Facility: [facility] Address: [address] [place] [address] Performed By: #### 5 7021-8 #### [facility] CLIA [id number] [address] [place] [address] [place] RBC (Bld) [#/Vol] 4.44 10*6/uL Normal 3.90-5.20 [facility] Comment on above: Order Comment: Speci men Type: BLOOD SPECIMEN [facility]ing Facility[facility] Address: [address] [place] [address] Performed By: #### 5 7021-8 #### [facility] CLIA [id number] [address] [place] [address] [place] WBC (Bld) [#/Vol] 7.17 10*3/uL Normal 3.70-11.00 [facility] Comment on above: Order Comment: Speci men Type: BLOOD SPECIMEN [facility]ing Facility: [facility] Address: [address] [place] [address] Performed By: #### 5 7021-8 #### [facility] CLIA [id number] [address] [place] [address] [place] FERRITIN BLDon 02-03-2022 Ferritin [Mass/Vol] 1132.0 ng/mL High 14.7-205.1 [facility] Comment on above: Order Comment: Speci men Type: BLOOD SPECIMEN Ordering Facility: [facility] Address: [address] [place] [address] Performed By: #### F ERR, IRON #### [facility] CLIA [id number] [address] [place] [address] [place] IRON + TIBCon 02-03-2022 Iron [Mass/Vol] 66 ug/dL Normal 41-186 [facility] Comment on above: Order Comment: Speci men Type: BLOOD SPECIMEN [facility] Facility[facility] Address: [address] [place] [address] Performed By: #### F ERR, IRON #### [facility] CLIA [id number] [address] [place] [address] [place] Iron binding capacity [Mass/Vol] 286 ug/dL Normal 232-386 [facility] Comment on above: Order Comment: Speci men Type: BLOOD SPECIMEN [facility]ing Facility: [facility] Address: [address] [place] [address] Performed By: #### F ERR, IRON #### [facility] CLIA [id number] [address] [place] [address] [place] Iron/TIBC [Molar ratio] 23 % Normal 15-57 [facility] Comment on above: Order Comment: Speci men Type: BLOOD SPECIMEN [facility]ing Facility: [facility] Address: [address] [place] [address] Performed By: #### F ERR, IRON #### [facility] CLIA [id number] [address] [place] [address] [place] Bacteria identified Anaer cx Nom (Unsp spec)on 12-02-2021 Anaerobic microbial culture No anaerobic bacteria isolated. [facility] Work Phone: Bacteria identified Cx Nom ( Wound)on 12-02-2021 Wound Culture Negative [facility] Work Phone: Wound Culture Staphylococcus epidermidis [facility] Work Phone: Wound Culture Corynebacterium striatum [facility] Work Phone: Gram stain for investigation of transfusion reactionon 12-02-2021 Microscopic observation Gram stain Nom (Unsp spec) [facility] Work Phone: CBC W Auto Differential pane l (Bld)on 11-04-2021 Basophils (Bld) [#/Vol] 0.05 10*3/uL Normal <0.11 [facility] Comment on above: Order Comment: Speci men Type: BLOOD SPECIMEN [facility] Facility[facility] Address: [address] [place] [address] Performed By: #### 5 7021-8 #### [facility] CLIA [id number] [address] [place] [address] [place] Basophils/100 WBC (Bld) 0.7 % Normal [facility] Comment on above: Order Comment: Speci men Type: BLOOD SPECIMEN [facility]ing Facility: [facility] Address: [address] [place] [address] Performed By: #### 5 7021-8 #### [facility] CLIA [id number] [address] [place] [address] [place] Differential cell count method Nom (Bld) Auto Normal [facility] Comment on above: Order Comment: Speci men Type: BLOOD SPECIMEN [facility]ing Facility: [facility] Address: [address] [place] [address] Performed By: #### 5 7021-8 #### [facility] CLIA [id number] [address] [place] [address] [place] Eosinophils (Bld) [#/Vol] 0.34 10*3/uL Normal <0.46 [facility] Comment on above: Order Comment: Speci men Type: BLOOD SPECIMEN Ordering Facility: [facility] Address: [address] [place] [address] Performed By: #### 5 7021-8 #### [facility] CLIA [id number] [address] [place] [address] [place] Eosinophils/100 WBC (Bld) 4.9 % Normal [facility] Comment on above: Order Comment: Speci men Type: BLOOD SPECIMEN Ordering Facility: [facility] Address: [address] [place] [address] Performed By: #### 5 7021-8 #### [facility] CLIA [id number] [address] [place] [address] [place] Erythrocyte distribution width (RBC) [Ratio] 13.3 % Normal 11.5-15.0 [facility] Comment on above: Order Comment: Speci men Type: BLOOD SPECIMEN Ordering Facility: [facility] Address: [address] [place] [address] Performed By: #### 5 7021-8 #### [facility] CLIA [id number] [address] [place] [address] [place] Hematocrit (Bld) [Volume fraction] 40.4 % Normal 36.0-46.0 [facility] Comment on above: Order Comment: Speci men Type: BLOOD SPECIMEN Ordering Facility: [facility] Address: [address] [place] [address] Performed By: #### 5 7021-8 #### [facility] CLIA [id number] [address] [place] [address] [place] Hemoglobin (Bld) [Mass/Vol] 12.9 g/dL Normal 11.5-15.5 [facility] Comment on above: Order Comment: Speci men Type: BLOOD SPECIMEN Ordering Facility: [facility] Address: [address] [place] [address] Performed By: #### 5 7021-8 #### [facility] CLIA [id number] [address] [place] [address] [place] IMMATURE GRAN % 0.1 % Normal [facility] Comment on above: Order Comment: Speci men Type: BLOOD SPECIMEN Ordering Facility: [facility] Address: [address] [place] [address] Performed By: #### 5 7021-8 #### [facility] CLIA [id number] [address] [place] [address] [place] IMMATURE GRAN ABS <0.03 Normal <0.10 [facility] Comment on above: Order Comment: Speci men Type: BLOOD SPECIMEN [facility]ing Facility: [facility] Address: [address] [place] [address] Performed By: #### 5 7021-8 #### [facility] CLIA [id number] [address] [place] [address] [place] Lymphocytes (Bld) [#/Vol] 2.70 10*3/uL Normal 1.00-4.00 [facility] Comment on above: Order Comment: Speci men Type: BLOOD SPECIMEN Ordering Facility: [facility] Address: [address] [place] [address] Performed By: #### 5 7021-8 #### [facility] CLIA [id number] [address] [place] [address] [place] Lymphocytes/100 WBC (Bld) 38.6 % Normal [facility] Comment on above: Order Comment: Speci men Type: BLOOD SPECIMEN Ordering Facility: [facility] Address: [address] [place] [address] Performed By: #### 5 7021-8 #### [facility] CLIA [id number] [address] [place] [address] [place] MCH (RBC) [Entitic mass] 28.9 pg Normal 26.0-34.0 [facility] Comment on above: Order Comment: Speci men Type: BLOOD SPECIMEN Ordering Facility: [facility] Address: [address] [place] [address] Performed By: #### 5 7021-8 #### [facility] CLIA [id number] [address] [place] [address] [place] MCHC (RBC) [Mass/Vol] 31.9 g/dL Normal 30.5-36.0 [facility] Comment on above: Order Comment: Speci men Type: BLOOD SPECIMEN Ordering Facility: [facility] Address: [address] [place] [address] Performed By: #### 5 7021-8 #### [facility] CLIA [id number] [address] [place] [address] [place] MCV (RBC) [Entitic vol] 90.4 fL Normal 80.0-100.0 [facility] Comment on above: Order Comment: Speci men Type: BLOOD SPECIMEN Ordering Facility: [facility] Address: [address] [place] [address] Performed By: #### 5 7021-8 #### [facility] CLIA [id number] [address] [place] [address] [place] Monocytes (Bld) [#/Vol] 0.49 10*3/uL Normal <0.87 [facility] Comment on above: Order Comment: Speci men Type: BLOOD SPECIMEN Ordering Facility: [facility] Address: [address] [place], [place] [address] Performed By: #### 5 7021-8 #### [facility] CLIA [id number] [address] [place] [address] [place] Monocytes/100 WBC (Bld) 7.0 % Normal [facility] Comment on above: Order Comment: Speci men Type: BLOOD SPECIMEN Ordering Facility: [facility] Address: [address] [place], [place] [address] Performed By: #### 5 7021-8 #### [facility] CLIA [id number] [address] [place] [address] [place] Neutrophils (Bld) [#/Vol] 3.40 10*3/uL Normal 1.45-7.50 [facility] Comment on above: Order Comment: Speci men Type: BLOOD SPECIMEN Ordering Facility: [facility] Address: [address] [place] [address] Performed By: #### 5 7021-8 #### [facility] CLIA [id number] [address] [place] [address] [place] Neutrophils/100 WBC (Bld) 48.7 % Normal [facility] Comment on above: Order Comment: Speci men Type: BLOOD SPECIMEN Ordering Facility: [facility] Address: [address] [place] [address] Performed By: #### 5 7021-8 #### [facility] CLIA [id number] [address] [place] [address] [place] Nucleated RBC (Bld) [#/Vol] 10*3/uL Normal <0.01 [facility] Comment on above: Order Comment: Speci men Type: BLOOD SPECIMEN Ordering Facility: [facility] Address: [address] [place] [address] Performed By: #### 5 7021-8 #### [facility] CLIA [id number] [address] [place] [address] [place] Nucleated RBC/100 WBC (Bld) [Ratio] 0.0 /100 WBC Normal [facility] Comment on above: Order Comment: Speci men Type: BLOOD SPECIMEN Ordering Facility: [facility] Address: [address] [place] [address] Performed By: #### 5 7021-8 #### [facility] CLIA [id number] [address] [place] [address] [place] Platelet mean volume (Bld) [Entitic vol] 10.1 fL Normal 9.0-12.7 [facility] Comment on above: Order Comment: Speci men Type: BLOOD SPECIMEN Ordering Facility: [facility] Address: [address] [place] [address] Performed By: #### 5 7021-8 #### [facility] CLIA [id number] [address] [place] [address] [place] Platelets (Bld) [#/Vol] 246 10*3/uL Normal 150-400 [facility] Comment on above: Order Comment: Speci men Type: BLOOD SPECIMEN Ordering Facility: [facility] Address: [address] [place] [address] Performed By: #### 5 7021-8 #### [facility] CLIA [id number] [address] [place] [address] [place] RBC (Bld) [#/Vol] 4.47 10*6/uL Normal 3.90-5.20 [facility] Comment on above: Order Comment: Speci men Type: BLOOD SPECIMEN Ordering Facility: [facility] Address: [address] [place] [address] Performed By: #### 5 7021-8 #### [facility] CLIA [id number] [address] [place] [address] [place] WBC (Bld) [#/Vol] 6.99 10*3/uL Normal 3.70-11.00 [facility] Comment on above: Order Comment: Speci men Type: BLOOD SPECIMEN Ordering Facility: [facility] Address: [address] [place] [address] Performed By: #### 5 7021-8 #### [facility] CLIA [id number] [address] [place] [address] [place] FERRITIN BLDon 11-04-2021 Ferritin [Mass/Vol] 1428.0 ng/mL High 14.7-205.1 [facility] Comment on above: Order Comment: Speci men Type: BLOOD SPECIMEN Ordering Facility: [facility] Address: [address] [place] [address] Performed By: #### I VICTOR MANUEL, FERR #### [facility] CLIA [id number] [address] [place] [address] [place] IRON + TIBCon 11-04-2021 Iron [Mass/Vol] 60 ug/dL Normal 41-186 [facility] Comment on above: Order Comment: Speci men Type: BLOOD SPECIMEN Ordering Facility: [facility] Address: [address] [place] [address] Performed By: #### I VICTOR MANUEL, FERR #### [facility] CLIA [id number] [address] [place] [address] [place] Iron binding capacity [Mass/Vol] 242 ug/dL Normal 232-386 [facility] Comment on above: Order Comment: Speci men Type: BLOOD SPECIMEN [facility]ing Facility: [facility] Address: [address] [place] [address] Performed By: #### I VICTOR MANUEL, FERR #### [facility] CLIA [id number] [address] [place] Iron/TIBC [Molar ratio] 25 % Normal 15-57 [facility] Comment on above: Order Comment: Flip headley Type: BLOOD SPECIMEN Ordering Facility: [facility] Address: [address] [place] [address] Performed By: #### I EVELIA RUSH #### [facility] CLIA [id number] [address] [place] [address] [place] CNPNon 09-29-2021 CNPN Telephone (HEMAWS) OLGA DONALDSON ([id number]) 1945 F Date Time Provider Department 09/29/21 [...] Date Reviewed: 05/07/2021 Reviewed by: 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 APRN.MANAGER PATHOLOGY - Fully Assessed Reason for Visit: Results [95] Follow Up [171] Primary Visit Diagnosis:Anemia, unspecified type [D64.9] Order(s):CBC + DIFF [SQCBCDIF] Order #: [id number] FUTURE COMP METABOLIC PANEL [SQCMP] Order #: [id number] FUTURE PROTEIN ELECTROPHORESIS SERUM W/INTERP [SQSEPG] Order #: [id number] FUTURE MONOCLONAL PROTEIN, SERUM (BLOOD) [SQSERMPA] Order #: [id number] FUTURE Prescriptions as of 04/12/2022 - ascorbic [...] MIST) 0.65 % nasal spray Use 1 Wren in the nose as needed. - diltiazem [...] Specified Conge (more content not included)... Normal [facility] Justine 05-09-2021 MAR[place] Telephone (HEMAWS) OLGA DONALDSON ([id number]) 1945 F Date Time Provider Department 05/09/21 [...] Date Reviewed: 05/07/2021 Reviewed by: 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 APRN.MARLI - Fully Assessed Reason for Visit: Results [...] MIST) 0.65 % nasal spray Use 1 Wren in the nose as needed. - diltiazem [...] by STACIE VARNER LPN on 05/09/21 Normal [facility] - Specimen inform ationon 03-27-2021 Specimen source Nom (Unsp spec) Stool [facility] No Panel Informationon 03-27 Occult Blood Diagnostic Positive [facility] FERRITIN BLDon 03-22-2021 Ferritin [Mass/Vol] 1064.0 ng/mL High 14.7 - 2 05.1 ng/mL [facility] CULTURE FUNGUSon 02-08-2018 CULTURE FUNGUS 1 Organism Nithya albicans Many Normal [facility] Comment on above: Performed By: #### C /FUN, S/FUN ####[facility] [id number] [place] [address] STAIN FUNGUSon 01-19-2018 STAIN FUNGUS STAIN FUNGUS --> Status: F 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 Direct exam by Calcofluor stain. Direct exam by Calcofluor stain. Normal [facility] Comment on above: Performed By: #### C /FUN, S/FUN ####[facility] [id number] [place] [address] Office Visit: Consult- Romero mina 01-13-2017 Adolescent depression screening assessment Adolescent depression screening assessment Invalid Interpretation Code [facility] Work Phone: [phone] Adult depression screening assessment Adolescent depression screening assessment [facility] Work Phone: [phone] Documentation of current medications (procedure) Done Invalid Interpretation Code [facility] Work Phone: [phone] Fall risk assessment Fall risk assessment [facility] Work Phone: [phone] Tobacco smoking status NHIS Never [facility] Work Phone: [phone] Tobacco smoking status NHIS Former smoker [facility] Work Phone: [phone] Tobacco use [facility] Former smoker Invalid Interpretation Code [facility] Work Phone: [phone] Clinical 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 Left ventricular Ejection fraction 70 % [facility] Work Phone: [phone] Office Visiton 08-29-2015 cardiac risk group [facility] Work Phone: [phone] General cardiovascular disease 10Y risk [#] [place].D'Agostted Not enough information [facility] Work Phone: [phone] Replaced Document: Midmark E CG Observationson 08-29-2015 EKG QRS axis 29 deg [facility] Work Phone: [phone] electrocardiogram interpretation Sinus Tachycardia -With rate variation cv = 10.WITHIN NORMAL LIMITS Invalid Interpretation Code [facility] Work Phone: [phone] GE use only - for [employer] import when terms are not otherwise specified 411 ms Invalid Interpretation Code [facility] Work Phone: [phone] Interpretation Sinus Tachycardia -With rate variation cv = 10.WITHIN NORMAL LIMITS [facility] Work Phone: [phone] P [place] 41 deg [facility] Work Phone: [phone] P wave axis, electrocardiogram 41 deg Invalid Interpretation Code [facility] Work Phone: [phone] AK Interval 134 ms [facility] Work Phone: [phone] AK interval, electrocardiogram 134 ms Invalid Interpretation Code [facility] Work Phone: [phone] Pulse (Heart Rate) 109 /min Invalid Interpretation Code [facility] Work Phone: [phone] QRS axis, electrocardiogram 29 deg Invalid Interpretation Code [facility] Work Phone: [phone] QRS Duration 80 ms [facility] Work Phone: [phone] QRS duration, electrocardiogram 80 ms Invalid Interpretation Code [facility] Work Phone: [phone] QT Interval new path ms [facility] Work Phone: [phone] QT interval, electrocardiogram new path ms Invalid Interpretation Code [facility] Work Phone: [phone] QTc Carney 411 ms [facility] Work Phone: [phone] T [place] 37 deg [facility] Work Phone: [phone] T wave axis, electrocardiogram 37 deg Invalid Interpretation Code [facility] Work Phone: [phone] Bacteria identified Anaer cx Nom (Unsp spec) Anaerobic microbial culture No anaerobic bacteria isolated. [facility] Work Phone: Bacteria identified Cx Nom ( Wound) Wound Culture Negative [facility] Work Phone: Wound Culture Staphylococcus epidermidis [facility] Work Phone: Wound Culture Corynebacterium striatum [facility] Work Phone: Culture, urine Bacteria identified Cx Nom (U) Klebsiella pneumoniae sp pneum [facility] Work Phone: Gram stain for investigation of transfusion reaction Microscopic observation Gram stain Nom (Unsp spec) [facility] Work Phone: Vital Signs Date Time Vital Sign Value Performing Clinician Facility 04-02-2025 04:27-0400 Body temperature 98.1 [degF] Dr. Ramone Smiley MD Work Phone: [facility] 04-02-2025 04:27-0400 Diastolic blood pressure 53 mm[Hg] Dr. Ramone Smiley MD Work Phone: [facility] 04-02-2025 04:27-0400 Heart rate 90 /min Dr. Ramone Smiley MD Work Phone: [facility] 04-02-2025 04:27-0400 Respiratory rate 21 /min Dr. Ramone Smiley MD Work Phone: [facility] 04-02-2025 04:27-0400 SaO2% (BldA) [Mass fraction] 100 % Dr. Ramone Smiley MD Work Phone: [facility] 04-02-2025 04:27-0400 Systolic blood pressure 139 mm[Hg] Dr. Ramone Smiley MD Work Phone: [facility] 04-02-2025 04:17-0400 Inhaled oxygen concentration 35 % Dr. Ramone Smiley MD Work Phone: [facility] 04-02-2025 02:55-0400 Inhaled oxygen flow rate 4 L/min Dr. Ramone Smiley MD Work Phone: 0(662)161-524642 [place] [address] 04-02-2025 02:50-0400 Body height 160.[address] Ramone Smiley MD Work Phone: 0(970)184-708392 [place] [address] 04-02-2025 02:50-0400 Body mass index (BMI) [Ratio] 32.2 kg/m2 Dr. Ramone Smiley MD Work Phone: 0(971)965-830792 [place] [address] 04-02-2025 02:50-0400 Body weight 82.[address] Ramone Smiley MD Work Phone: 3(476)541-270192 [place] [address] 03-25-2025 13:49-0400 Body temperature 98.9 [degF] Dr. Ramone Smiley MD Work Phone: 4(565)593-041692 [place] [address] 03-25-2025 13:49-0400 Diastolic blood pressure 60 mm[Hg] Dr. Ramone Smiley MD Work Phone: 1(768)910-260592 [place] [address] 03-25-2025 13:49-0400 Heart rate 102 /min Dr. Ramone Smiley MD Work Phone: 2(456)150-839492 [place] [address] 03-25-2025 13:49-0400 Inhaled oxygen flow rate 2 L/min Dr. Ramone Smiley MD Work Phone: 4(522)136-394792 [place] [address] 03-25-2025 13:49-0400 Respiratory rate 16 /min Dr. Ramone Smiley MD Work Phone: 6(032)923-803892 [place] [address] 03-25-2025 13:49-0400 SaO2% (BldA) [Mass fraction] 100 % Dr. Ramone Smiley MD Work Phone: 6(814)958-625992 [place] [address] 03-25-2025 13:49-0400 Systolic blood pressure 136 mm[Hg] Dr. Ramone Smiley MD Work Phone: 5(419)501-993392 [place] [address] 03-25-2025 03:15-0400 Body mass index (BMI) [Ratio] 30.4 kg/m2 Dr. Ramone Smiley MD Work Phone: 5(373)282-077592 [place] [address] 03-25-2025 03:15-0400 Body weight 77.[address] Ramone Smiley MD Work Phone: 7(978)288-755192 [place] [address] 03-24-2025 14:00-0400 Body height 160.[address] Ramone Smiley MD Work Phone: 9(558)430-038892 [place] [address] 03-21-2025 22:28-0400 Body temperature 98.4 [degF] Dr. Ramone Smiley MD Work Phone: 8(503)914-760892 [place] [address] 03-21-2025 22:28-0400 Diastolic blood pressure 81 mm[Hg] Dr. Ramone Smiley MD Work Phone: 0(003)918-119392 [place] [address] 03-21-2025 22:28-0400 Heart rate 86 /min Dr. Ramone Smiley MD Work Phone: 0(990)901-065492 [place] [address] 03-21-2025 22:28-0400 Respiratory rate 19 /min Dr. Ramone Smiley MD Work Phone: 3(373)927-209992 [place] [address] 03-21-2025 22:28-0400 SaO2% (BldA) [Mass fraction] 94 % Dr. Ramone Smiley MD Work Phone: 2(603)640-228392 [place] [address] 03-21-2025 22:28-0400 Systolic blood pressure 136 mm[Hg] Dr. Ramone Smiley MD Work Phone: 8(542)497-869092 [place] [address] 03-21-2025 21:00-0400 Inhaled oxygen flow rate 2 L/min Dr. Ramone Smiley MD Work Phone: 5(015)184-990192 [place] [address] 03-21-2025 13:31-0400 Body mass index (BMI) [Ratio] 27.6 kg/m2 Dr. Ramone Smiley MD Work Phone: 8(265)306-061592 [place] [address] 03-21-2025 13:31-0400 Body weight 70.[address] Ramone Smiley MD Work Phone: 4(182)637-003992 [place] [address] 03-21-2025 13:23-0400 Body height 160.[address] Ramone Smiley MD Work Phone: 2(144)966-957292 [place] [address] 03-04-2025 23:10-0400 Body temperature 98 [degF] Dr. Ramone Smiley MD Work Phone: [facility] 03-04-2025 23:10-0400 Diastolic blood pressure 80 mm[Hg] Dr. Ramone Smiley MD Work Phone: [facility] 03-04-2025 23:10-0400 Heart rate 81 /min Dr. Ramone Smiley MD Work Phone: [facility] 03-04-2025 23:10-0400 Respiratory rate 16 /min Dr. Ramone Smiley MD Work Phone: [facility] 03-04-2025 23:10-0400 SaO2% (BldA) [Mass fraction] 95 % Dr. Ramone Smiley MD Work Phone: 0(463)809-988620 [address] 03-04-2025 23:10-0400 Systolic blood pressure 135 mm[Hg] Dr. Ramone Smiley MD Work Phone: 4(070)048-523120 [address] 03-04-2025 19:04-0400 Inhaled oxygen flow rate 2 L/min Dr. Ramone Smiley MD Work Phone: [facility] 03-04-2025 18:54-0400 Body mass index (BMI) [Ratio] 28 kg/m2 Dr. Ramone Smiley MD Work Phone: [facility] 03-04-2025 18:54-0400 Body weight 71.[address] Ramone Smiley MD Work Phone: [facility] 03-04-2025 18:37-0400 Body height 160.[address] Ramone Smiley MD Work Phone: [facility] 02-19-2025 00:38-0400 Body temperature 98.7 [degF] Dr. Ramone Smiley MD Work Phone: [facility] 02-19-2025 00:38-0400 Diastolic blood pressure 86 mm[Hg] Dr. Ramone Smiley MD Work Phone: [facility] 02-19-2025 00:38-0400 Heart rate 98 /min Dr. Ramone Smiley MD Work Phone: [facility] 02-19-2025 00:38-0400 Respiratory rate 22 /min Dr. Ramone Smiley MD Work Phone: 9(141)574-173942 [place] [address] 02-19-2025 00:38-0400 SaO2% (BldA) [Mass fraction] 98 % Dr. Ramone Smiley MD Work Phone: 9(745)390-648892 [place] [address] 02-19-2025 00:38-0400 Systolic blood pressure 122 mm[Hg] Dr. Ramone Smiley MD Work Phone: 5(260)414-375142 [place] [address] 02-19-2025 00:23-0400 Inhaled oxygen flow rate 2 L/min Dr. Ramone Smiley MD Work Phone: 2(828)952-968792 [place] [address] 02-18-2025 20:51-0400 Body height 160.[address] Ramone Smiley MD Work Phone: 6(145)723-546492 [place] [address] 02-18-2025 20:51-0400 Body mass index (BMI) [Ratio] 30.4 kg/m2 Dr. Ramone Smiley MD Work Phone: 1(479)438-353592 [place] [address] 02-18-2025 20:51-0400 Body weight 77.[address] Ramone Smiley MD Work Phone: 0(164)333-774092 [place] [address] 02-17-2025 18:40-0400 Heart rate 78 /min Dr. Ramone Smiley MD Work Phone: 1(529)152-196292 [place] [address] 02-17-2025 18:40-0400 Inhaled oxygen flow rate 2 L/min Dr. Ramone Smiley MD Work Phone: 4(974)890-290742 [place] [address] 02-17-2025 18:40-0400 Respiratory rate 18 /min Dr. Ramone Smiley MD Work Phone: 5(911)056-873092 [place] [address] 02-17-2025 18:40-0400 SaO2% (BldA) [Mass fraction] 94 % Dr. Ramone Smiley MD Work Phone: 6(440)590-033492 [place] [address] 02-17-2025 18:08-0400 Body temperature 98.9 [degF] Dr. Ramone Smiley MD Work Phone: [facility] 02-17-2025 18:08-0400 Diastolic blood pressure 54 mm[Hg] Dr. Ramone Smiley MD Work Phone: 5(221)588-735442 [place] [address] 02-17-2025 18:08-0400 Systolic blood pressure 137 mm[Hg] Dr. Ramone Smiley MD Work Phone: 8(246)431-125092 [place] [address] 02-17-2025 04:49-0400 Body mass index (BMI) [Ratio] 29.4 kg/m2 Dr. Ramone Smiley MD Work Phone: 9(392)152-690092 [place] [address] 02-17-2025 04:49-0400 Body weight 75.[address] Ramone Smiley MD Work Phone: 2(207)596-271292 [place] [address] 02-15-2025 15:20-0400 Body height 160.[address] Ramone Smiley MD Work Phone: 9(921)059-381692 [place] [address] 02-15-2025 13:54-0400 Body temperature 99.6 [degF] Dr. Ramone Smiley MD Work Phone: 3(471)075-117692 [place] [address] 02-15-2025 13:54-0400 Diastolic blood pressure 53 mm[Hg] Dr. Ramone Smiley MD Work Phone: 5(582)637-871092 [place] [address] 02-15-2025 13:54-0400 Heart rate 98 /min Dr. Ramone Smiley MD Work Phone: 8(718)144-510392 [place] [address] 02-15-2025 13:54-0400 Inhaled oxygen flow rate 3 L/min Dr. Ramone Smiley MD Work Phone: 6(221)104-738442 [place] [address] 02-15-2025 13:54-0400 Respiratory rate 22 /min Dr. Ramone Smiley MD Work Phone: 2(595)914-041692 [place] [address] 02-15-2025 13:54-0400 SaO2% (BldA) [Mass fraction] 98 % Dr. Ramone Smiley MD Work Phone: 7(973)701-401392 [place] [address] 02-15-2025 13:54-0400 Systolic blood pressure 110 mm[Hg] Dr. Ramone Smiley MD Work Phone: 7(014)048-272142 [place] [address] 02-15-2025 08:36-0400 Body height 160.[address] Ramone Smiley MD Work Phone: 9(231)197-351392 [place] [address] 02-15-2025 08:36-0400 Body mass index (BMI) [Ratio] 30.4 kg/m2 Dr. Ramone Smiley MD Work Phone: 5(156)197-316392 [place] [address] 02-15-2025 08:36-0400 Body weight 78.[address] Ramone Smiley MD Work Phone: 9(778)190-605592 [place] [address] 02-13-2025 16:00-0400 Inhaled oxygen flow rate 2 L/min Dr. Ramone Smiley MD Work Phone: 5(213)292-461592 [place] [address] 02-13-2025 14:04-0400 Body temperature 98.4 [degF] Dr. Ramone Smiley MD Work Phone: 9(806)447-057992 [place] [address] 02-13-2025 14:04-0400 Heart rate 94 /min Dr. Ramone Smiley MD Work Phone: 7(471)069-046692 [place] [address] 02-13-2025 14:04-0400 Respiratory rate 20 /min Dr. Ramone Smiley MD Work Phone: 3(630)175-402492 [place] [address] 02-13-2025 14:04-0400 SaO2% (BldA) [Mass fraction] 94 % Dr. Ramone Smiley MD Work Phone: 0(130)084-643792 [place] [address] 02-13-2025 08:41-0400 Diastolic blood pressure 51 mm[Hg] Dr. Ramone Smiley MD Work Phone: 4(945)592-136092 [place] [address] 02-13-2025 08:41-0400 Systolic blood pressure 132 mm[Hg] Dr. Ramone Smiley MD Work Phone: 3(090)359-461992 [place] [address] 02-10-2025 13:27-0400 Body height 160.[address] Ramone Smiley MD Work Phone: 2(925)429-644992 [place] [address] 02-10-2025 13:27-0400 Body weight 76.[address] Ramone Smiley MD Work Phone: 5(664)048-415392 [place] [address] 02-09-2025 16:43-0400 Body mass index (BMI) [Ratio] 29.9 kg/m2 Dr. Ramone Smiley MD Work Phone: 7(867)495-584492 [place] [address] 02-09-2025 15:12-0400 Inhaled oxygen flow rate 2 L/min Dr. Ramone Smiley MD Work Phone: 8(463)594-202492 [place] [address] 02-09-2025 15:12-0400 SaO2% (BldA) [Mass fraction] 91 % Dr. Ramone Smiley MD Work Phone: 5(384)386-636192 [place] [address] 02-09-2025 15:08-0400 Body temperature 99 [degF] Dr. Ramone Smiley MD Work Phone: 3(386)162-908992 [place] [address] 02-09-2025 15:08-0400 Diastolic blood pressure 46 mm[Hg] Dr. Ramone Smiley MD Work Phone: 8(271)049-919392 [place] [address] 02-09-2025 15:08-0400 Heart rate 94 /min Dr. Ramone Smiley MD Work Phone: 4(687)568-590892 [place] [address] 02-09-2025 15:08-0400 Respiratory rate 25 /min Dr. Ramone Smiley MD Work Phone: 8(658)511-116192 [place] [address] 02-09-2025 15:08-0400 Systolic blood pressure 136 mm[Hg] Dr. Ramone Smiley MD Work Phone: 0(751)110-876192 [place] [address] 02-09-2025 11:52-0400 Body height 160.[address] Ramone Smiley MD Work Phone: 1(857)236-973692 [place] [address] 02-09-2025 11:52-0400 Body mass index (BMI) [Ratio] 30.1 kg/m2 Dr. Ramone Smiley MD Work Phone: 9(534)381-329592 [place] [address] 02-09-2025 11:52-0400 Body weight 77.[address] Ramone Smiley MD Work Phone: 7(058)363-729892 [place] [address] 02-06-2025 15:38-0400 Body temperature 97.5 [degF] Dr. Ramone Smiley MD Work Phone: 2(425)901-320892 [place] [address] 02-06-2025 15:38-0400 Diastolic blood pressure 81 mm[Hg] Dr. Ramone Smiley MD Work Phone: 0(634)463-644042 [place] [address] 02-06-2025 15:38-0400 Heart rate 74 /min Dr. Ramone Smiley MD Work Phone: 2(297)838-576392 [place] [address] 02-06-2025 15:38-0400 Respiratory rate 18 /min Dr. Ramone Smiley MD Work Phone: 0(518)505-559592 [place] [address] 02-06-2025 15:38-0400 SaO2% (BldA) [Mass fraction] 93 % Dr. Ramone Smiley MD Work Phone: 9(195)698-725492 [place] [address] 02-06-2025 15:38-0400 Systolic blood pressure 117 mm[Hg] Dr. Ramone Smiley MD Work Phone: 2(474)362-834492 [place] [address] 02-06-2025 07:36-0400 Inhaled oxygen flow rate 2 L/min Dr. Ramone Smiley MD Work Phone: 9(895)580-647792 [place] [address] 02-04-2025 12:34-0400 Body height 160.[address] Ramone Smiley MD Work Phone: 8(112)486-470292 [place] [address] 02-04-2025 12:34-0400 Body mass index (BMI) [Ratio] 27.8 kg/m2 Dr. Ramone Smiley MD Work Phone: 3(017)016-337792 [place] [address] 02-04-2025 12:34-0400 Body weight 71.[address] Ramone Smiley MD Work Phone: 8(981)141-990392 [place] [address] 02-04-2025 11:06-0400 Body temperature 98.6 [degF] Dr. Ramone Smiley MD Work Phone: 1(047)688-785192 [place] [address] 02-04-2025 11:06-0400 Diastolic blood pressure 46 mm[Hg] Dr. Ramone Smiley MD Work Phone: 7(328)672-266792 [place] [address] 02-04-2025 11:06-0400 Heart rate 88 /min Dr. Ramone Smiley MD Work Phone: 8(544)391-827242 [place] [address] 02-04-2025 11:06-0400 Respiratory rate 30 /min Dr. Ramone Smiley MD Work Phone: 8(694)462-421942 [place] [address] 02-04-2025 11:06-0400 SaO2% (BldA) [Mass fraction] 99 % Dr. Ramone Smiley MD Work Phone: 4(919)545-540592 [place] [address] 02-04-2025 11:06-0400 Systolic blood pressure 111 mm[Hg] Dr. Ramone Smiley MD Work Phone: 4(037)044-422392 [place] [address] 02-04-2025 11:00-0400 Inhaled oxygen flow rate 3 L/min Dr. Ramone Smiley MD Work Phone: 6(074)704-282892 [place] [address] 02-04-2025 06:20-0400 Body height 160.[address] Ramone Smiley MD Work Phone: 6(975)597-919292 [place] [address] 02-04-2025 06:20-0400 Body mass index (BMI) [Ratio] 29.9 kg/m2 Dr. Ramone Smiley MD Work Phone: 9(500)814-704392 [place] [address] 02-04-2025 06:20-0400 Body weight 76.[address] Ramone Smiley MD Work Phone: 9(925)880-353092 [place] [address] 01-31-2025 06:28-0400 Body mass index (BMI) [Ratio] 27.4 kg/m2 Dr. Ramone Smiley MD Work Phone: 2(682)254-357292 [place] [address] 01-31-2025 06:28-0400 Body weight 70.[address] Ramone Smiley MD Work Phone: 4(257)192-914292 [place] [address] 01-31-2025 06:28-0400 Diastolic blood pressure 59 mm[Hg] Dr. Ramone Smiley MD Work Phone: 1(569)617-247992 [place] [address] 01-31-2025 06:28-0400 Heart rate 95 /min Dr. Ramone Smiley MD Work Phone: 0(156)094-259492 [place] [address] 01-31-2025 06:28-0400 Respiratory rate 18 /min Dr. Ramone Smiley MD Work Phone: 5(241)282-525292 [place] [address] 01-31-2025 06:28-0400 SaO2% (BldA) [Mass fraction] 95 % Dr. Ramone Smiley MD Work Phone: 9(245)345-261842 [place] [address] 01-31-2025 06:28-0400 Systolic blood pressure 107 mm[Hg] Dr. Ramone Smiley MD Work Phone: 0(747)376-893492 [place] [address] 01-26-2025 05:13-0400 Body temperature 98.3 [degF] Dr. Ramone Smiley MD Work Phone: 3(412)879-123392 [place] [address] 01-26-2025 05:13-0400 Diastolic blood pressure 72 mm[Hg] Dr. Ramone Smiley MD Work Phone: 9(720)058-861292 [place] [address] 01-26-2025 05:13-0400 Heart rate 83 /min Dr. Ramone Smiley MD Work Phone: 7(069)139-368992 [place] [address] 01-26-2025 05:13-0400 Respiratory rate 18 /min Dr. Ramone Smiley MD Work Phone: 6(050)035-578692 [place] [address] 01-26-2025 05:13-0400 SaO2% (BldA) [Mass fraction] 97 % Dr. Ramone Smiley MD Work Phone: 6(803)452-326792 [place] [address] 01-26-2025 05:13-0400 Systolic blood pressure 116 mm[Hg] Dr. Ramone Smiley MD Work Phone: 6(582)516-376592 [place] [address] 01-26-2025 03:02-0400 Body height 160.[address] Ramone Smiley MD Work Phone: 6(826)479-612092 [place] [address] 01-26-2025 03:02-0400 Body mass index (BMI) [Ratio] 31.4 kg/m2 Dr. Ramone Smiley MD Work Phone: 5(736)935-197992 [place] [address] 01-26-2025 03:02-0400 Body weight 80.[address] Ramone Smiley MD Work Phone: 5(962)449-282192 [place] [address] 01-24-2025 13:57-0400 Body temperature 97.4 [degF] Dr. Ramone Smiley MD Work Phone: 3(971)193-010592 [place] [address] 01-24-2025 13:57-0400 Diastolic blood pressure 68 mm[Hg] Dr. Ramone Smiley MD Work Phone: 6(197)873-337042 [place] [address] 01-24-2025 13:57-0400 Heart rate 87 /min Dr. Ramone Smiley MD Work Phone: 7(224)715-936392 [place] [address] 01-24-2025 13:57-0400 Respiratory rate 16 /min Dr. Ramone Smiley MD Work Phone: 5(032)432-809392 [place] [address] 01-24-2025 13:57-0400 SaO2% (BldA) [Mass fraction] 97 % Dr. Ramone Smiley MD Work Phone: 6(378)572-896092 [place] [address] 01-24-2025 13:57-0400 Systolic blood pressure 111 mm[Hg] Dr. Ramone Smiley MD Work Phone: 5(311)388-577692 [place] [address] 01-24-2025 05:23-0400 Body mass index (BMI) [Ratio] 30.7 kg/m2 Dr. Ramone Smiley MD Work Phone: 4(548)374-497992 [place] [address] 01-24-2025 05:23-0400 Body weight 78.[address] Ramone Smiley MD Work Phone: 6(897)621-102992 [place] [address] 01-22-2025 14:00-0400 Inhaled oxygen concentration 24 % Dr. Ramone Smiley MD Work Phone: 5(125)575-709292 [place] [address] 01-22-2025 11:00-0400 Inhaled oxygen flow rate 2 L/min Dr. Ramone Smiley MD Work Phone: 0(874)965-800392 [place] [address] 01-20-2025 10:06-0400 Body height 160.[address] Ramone Smiley MD Work Phone: 2(830)288-078192 [place] [address] 01-15-2025 18:58-0400 Body temperature 97.9 [degF] Dr. Ramone Smiley MD Work Phone: 6(012)265-732792 [place] [address] 01-15-2025 18:58-0400 Diastolic blood pressure 70 mm[Hg] Dr. Ramone Smiley MD Work Phone: 8(959)589-976392 [place] [address] 01-15-2025 18:58-0400 Heart rate 69 /min Dr. Ramone Smiley MD Work Phone: [facility] 01-15-2025 18:58-0400 Respiratory rate 22 /min Dr. Ramone Smiley MD Work Phone: [facility] 01-15-2025 18:58-0400 SaO2% (BldA) [Mass fraction] 98 % Dr. Ramone Smiley MD Work Phone: 1(051)456-241342 [place] [address] 01-15-2025 18:58-0400 Systolic blood pressure 130 mm[Hg] Dr. Ramone Smiley MD Work Phone: 7(823)650-149242 [place] [address] 01-15-2025 14:14-0400 Body height 160.[address] Ramone Smiley MD Work Phone: 2(247)564-390692 [place] [address] 01-15-2025 14:14-0400 Body mass index (BMI) [Ratio] 32.3 kg/m2 Dr. Ramone Smiley MD Work Phone: 2(977)130-567142 [place] [address] 01-15-2025 14:14-0400 Body weight 82.[address] Ramone Smiley MD Work Phone: 3(572)370-939520 [address] 01-07-2025 17:34-0400 Body temperature 97.6 [degF] Dr. Ramone Smiley MD Work Phone: 5(150)646-488720 [address] 01-07-2025 17:34-0400 Diastolic blood pressure 78 mm[Hg] Dr. Ramone Smiley MD Work Phone: 5(376)651-737242 [place] [address] 01-07-2025 17:34-0400 Heart rate 82 /min Dr. Ramone Smiley MD Work Phone: [facility] 01-07-2025 17:34-0400 Respiratory rate 19 /min Dr. Ramone Smiley MD Work Phone: [facility] 01-07-2025 17:34-0400 SaO2% (BldA) [Mass fraction] 97 % Dr. Ramone Smiley MD Work Phone: [facility] 01-07-2025 17:34-0400 Systolic blood pressure 147 mm[Hg] Dr. Ramone Smiley MD Work Phone: [facility] 01-07-2025 14:56-0400 Body height 160.[address] Ramone Smiley MD Work Phone: [facility] 01-07-2025 14:56-0400 Body mass index (BMI) [Ratio] 31.5 kg/m2 Dr. Ramone Smiley MD Work Phone: [facility] 01-07-2025 14:56-0400 Body weight 80.[address] Ramone Smiley MD Work Phone: [facility] 12-30-2023 14:14-0400 Body temperature 98.9 [degF] Dr. Ramone Smiley Work Phone: [facility] 12-30-2023 14:14-0400 Diastolic blood pressure 60 mm[Hg] Dr. Ramone Smiley Work Phone: 1(208)714-393020 [address] 12-30-2023 14:14-0400 Heart rate 80 /min Dr. Ramone Smiley Work Phone: [facility] 12-30-2023 14:14-0400 Respiratory rate 18 /min Dr. Ramone Smiley Work Phone: [facility] 12-30-2023 14:14-0400 SaO2% (BldA) [Mass fraction] 95 % Dr. Ramone Smiley Work Phone: [facility] 12-30-2023 14:14-0400 Systolic blood pressure 131 mm[Hg] Dr. Ramone Smiley Work Phone: [facility] 12-29-2023 07:09-0400 Inhaled oxygen flow rate 2 L/min Dr. Ramone Smiley Work Phone: [facility] 12-28-2023 11:27-0400 Body height 160.[address] Ramone Smiley Work Phone: [facility] 12-28-2023 11:27-0400 Body mass index (BMI) [Ratio] 27.8 kg/m2 Dr. Ramone Smiley Work Phone: [facility] 12-28-2023 11:27-0400 Body weight 71.[address] Ramone Smiley Work Phone: [facility] 12-27-2023 23:42-0400 Body temperature 97.5 [degF] [facility] 12-27-2023 23:42-0400 Diastolic blood pressure 59 mm[Hg] [facility] 12-27-2023 23:42-0400 Heart rate 77 /min [facility] 12-27-2023 23:42-0400 Respiratory rate 20 /min [facility] 12-27-2023 23:42-0400 SaO2% (BldA) [Mass fraction] 97 % [facility] 12-27-2023 23:42-0400 Systolic blood pressure 159 mm[Hg] [facility] 12-27-2023 22:06-0400 Body height 160.02 cm [facility] 12-27-2023 22:06-0400 Body mass index (BMI) [Ratio] 29.5 kg/m2 [facility] 12-27-2023 22:06-0400 Body weight 75.6 kg [facility] 08-17-2023 13:26-0500 Body temperature 97.1 [degF] Dr. Ramone Smiley Work Phone: [facility] 08-17-2023 13:26-0500 Diastolic blood pressure 65 mm[Hg] Dr. Ramone Smiley Work Phone: [facility] 08-17-2023 13:26-0500 Heart rate 84 /min Dr. Ramone Smiley Work Phone: [facility] 08-17-2023 13:26-0500 Respiratory rate 18 /min Dr. Ramone Smiley Work Phone: [facility] 08-17-2023 13:26-0500 SaO2% (BldA) [Mass fraction] 98 % Dr. Ramone Smiley Work Phone: [facility] 08-17-2023 13:26-0500 Systolic blood pressure 140 mm[Hg] Dr. Ramone Smiley Work Phone: [facility] 08-14-2023 13:28-0500 Body height 160.[address] Ramone Smiley Work Phone: [facility] 08-14-2023 13:28-0500 Body weight 60.[address] Ramone Smiley Work Phone: [facility] 08-13-2023 15:22-0500 Body mass index (BMI) [Ratio] 23.4 kg/m2 Dr. Ramone Smiley Work Phone: [facility] 08-13-2023 14:18-0500 Body temperature 98.6 [degF] Dr. Ramone Smiley Work Phone: [facility] 08-13-2023 14:18-0500 Diastolic blood pressure 59 mm[Hg] Dr. Ramone Smiley Work Phone: [facility] 08-13-2023 14:18-0500 Heart rate 107 /min Dr. Ramone Smiley Work Phone: [facility] 08-13-2023 14:18-0500 Respiratory rate 20 /min Dr. Ramone Smiley Work Phone: [facility] 08-13-2023 14:18-0500 SaO2% (BldA) [Mass fraction] 97 % Dr. Ramone Smiley Work Phone: [facility] 08-13-2023 14:18-0500 Systolic blood pressure 152 mm[Hg] Dr. Ramone Smiley Work Phone: [facility] 08-13-2023 10:03-0500 Body height 160.[address] Ramone Smiley Work Phone: [facility] 08-13-2023 10:03-0500 Body mass index (BMI) [Ratio] 24.5 kg/m2 Dr. Ramone Smiley Work Phone: [facility] 08-13-2023 10:03-0500 Body weight [address] Ramone Smiley Work Phone: [facility] 08-07-2023 20:23-0500 Body temperature 97.6 [degF] Dr. Ramone Smiley Work Phone: [facility] 08-07-2023 20:23-0500 Diastolic blood pressure 51 mm[Hg] Dr. Ramone Smiley Work Phone: [facility] 08-07-2023 20:23-0500 Heart rate 87 /min Dr. Ramone Smiley Work Phone: [facility] 08-07-2023 20:23-0500 Respiratory rate 18 /min Dr. Ramone Smiley Work Phone: [facility] 08-07-2023 20:23-0500 SaO2% (BldA) [Mass fraction] 98 % Dr. aRmone Smiley Work Phone: [facility] 08-07-2023 20:23-0500 Systolic blood pressure 115 mm[Hg] Dr. Ramone Smiley Work Phone: [facility] 07-19-2023 01:01-0500 Diastolic blood pressure 61 mm[Hg] Dr. Ramone Smiley Work Phone: [facility] 07-19-2023 01:01-0500 Heart rate 101 /min Dr. Ramone Smiley Work Phone: [facility] 07-19-2023 01:01-0500 Respiratory rate 20 /min Dr. Ramone Smiley Work Phone: [facility] 07-19-2023 01:01-0500 Systolic blood pressure 145 mm[Hg] Dr. Ramone Smiley Work Phone: [facility] 07-18-2023 23:28-0500 Body mass index (BMI) [Ratio] 25.7 kg/m2 Dr. Ramone Smiley Work Phone: [facility] 07-18-2023 23:28-0500 Body weight 65.[address] Ramone Smiley Work Phone: [facility] 07-18-2023 22:47-0500 Body temperature 97.6 [degF] Dr. Ramone Smiley Work Phone: [facility] 07-18-2023 22:47-0500 SaO2% (BldA) [Mass fraction] 96 % Dr. Ramone Smiley Work Phone: [facility] 07-18-2023 22:44-0500 Body height 160.[address] Ramone Smiley Work Phone: [facility] 07-15-2023 13:24-0500 Body temperature 98.2 [degF] Dr. Ramone Smiley Work Phone: [facility] 07-15-2023 13:24-0500 Diastolic blood pressure 74 mm[Hg] Dr. Ramone Smiley Work Phone: [facility] 07-15-2023 13:24-0500 Heart rate 89 /min Dr. Ramone Smiley Work Phone: [facility] 07-15-2023 13:24-0500 SaO2% (BldA) [Mass fraction] 92 % Dr. Ramone Smiley Work Phone: [facility] 07-15-2023 13:24-0500 Systolic blood pressure 122 mm[Hg] Dr. Ramone Smiley Work Phone: [facility] 01-28-2023 16:36-0400 Diastolic blood pressure 63 mm[Hg] [facility] 01-28-2023 16:36-0400 Heart rate 75 /min [facility] 01-28-2023 16:36-0400 Systolic blood pressure 170 mm[Hg] [facility] 01-28-2023 14:54-0400 Body height 160.02 cm [facility] 01-28-2023 14:54-0400 Body mass index (BMI) [Ratio] 26.9 kg/m2 [facility] 01-28-2023 14:54-0400 Body temperature 97.8 [degF] [facility] 01-28-2023 14:54-0400 Body weight 69 kg [facility] 01-28-2023 14:54-0400 Respiratory rate 25 /min [facility] 01-28-2023 14:54-0400 SaO2% (BldA) [Mass fraction] 97 % [facility] 07-14-2022 18:11-0500 Diastolic blood pressure 64 mm[Hg] [facility] Work Phone: 07-14-2022 18:11-0500 Heart rate 73 /min [facility] Work Phone: 07-14-2022 18:11-0500 Respiratory rate 18 /min [facility] Work Phone: 07-14-2022 18:11-0500 SaO2% (BldA) [Mass fraction] 98 % [facility] Work Phone: 07-14-2022 18:11-0500 Systolic blood pressure 174 mm[Hg] [facility] Work Phone: 07-14-2022 11:59-0500 Body height 160.02 cm [facility] Work Phone: 07-14-2022 11:59-0500 Body mass index (BMI) [Ratio] 31.1 kg/m2 [facility] Work Phone: 07-14-2022 11:59-0500 Body temperature 97.2 [degF] [facility] Work Phone: 07-14-2022 11:59-0500 Body weight 79.83 kg [facility] Work Phone: 05-07-2022 13:26-0400 Body height 158.1 cm 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 SERVICE CONTROL OPERATOR.MANAGER PATHOLOGY Work Phone: [facility] 05-07-2022 13:26-0400 Body temperature 97.2 [degF] 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 SERVICE CONTROL OPERATOR.MANAGER PATHOLOGY Work Phone: [facility] 05-07-2022 13:26-0400 Body weight 73.71 kg 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 SERVICE CONTROL OPERATOR.MANAGER PATHOLOGY Work Phone: [facility] 05-07-2022 13:26-0400 Diastolic blood pressure 68 mm[Hg] 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 SERVICE CONTROL OPERATOR.MANAGER PATHOLOGY Work Phone: [facility] 05-07-2022 13:26-0400 Heart rate 66 /min 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 SERVICE CONTROL OPERATOR.MANAGER PATHOLOGY Work Phone: [facility] 05-07-2022 13:26-0400 Systolic blood pressure 160 mm[Hg] Lashonda Javedenter SERVICE CONTROL OPERATOR.MANAGER PATHOLOGY Work Phone: [facility] 02-26-2022 09:43-0400 Body height 160.[address] Ramone Smiley Work Phone: [facility] Work Phone: 02-26-2022 09:43-0400 Body mass index (BMI) [Ratio] 28.1 kg/m2 Dr. Ramone Smiley Work Phone: [facility] Work Phone: 02-26-2022 09:43-0400 Body temperature 97.9 [degF] Dr. Ramone Smiley Work Phone: [facility] Work Phone: 02-26-2022 09:43-0400 Body weight 72.[address] Ramone Smiley Work Phone: [facility] Work Phone: 02-26-2022 09:43-0400 Diastolic blood pressure 80 mm[Hg] Dr. Ramone Smiley Work Phone: [facility] Work Phone: 02-26-2022 09:43-0400 Heart rate 70 /min Dr. Ramone Smiley Work Phone: [facility] Work Phone: 02-26-2022 09:43-0400 Respiratory rate 14 /min Dr. Ramone Smiley Work Phone: [facility] Work Phone: 02-26-2022 09:43-0400 SaO2% (BldA) [Mass fraction] 98 % Dr. Ramone Smiley Work Phone: [facility] Work Phone: 02-26-2022 09:43-0400 Systolic blood pressure 134 mm[Hg] Dr. Rmaone Smiley Work Phone: [facility] Work Phone: 12-17-2021 13:23-0400 Diastolic blood pressure 60 mm[Hg] Dr. Ramone Smiley Work Phone: [facility] Work Phone: 12-17-2021 13:23-0400 Systolic blood pressure 154 mm[Hg] Dr. Ramone Smiley Work Phone: [facility] Work Phone: 12-10-2021 10:34-0400 Diastolic blood pressure 70 mm[Hg] Dr. Ramone Smiley Work Phone: [facility] Work Phone: 12-10-2021 10:34-0400 Systolic blood pressure 124 mm[Hg] Dr. Ramone Smiley Work Phone: [facility] Work Phone: 12-06-2021 15:22-0400 Body mass index (BMI) [Ratio] 30.2 kg/m2 Dr. Ramone Smiley Work Phone: [facility] Work Phone: 12-06-2021 15:22-0400 Body weight 77.[address] Ramone Smiley Work Phone: [facility] Work Phone: 12-06-2021 15:22-0400 Diastolic blood pressure 84 mm[Hg] Dr. Ramone Smiley Work Phone: [facility] Work Phone: 12-06-2021 15:22-0400 Systolic blood pressure 122 mm[Hg] Dr. Ramone Smiley Work Phone: [facility] Work Phone: 12-06-2021 15:22-0400 Body height 160.[address] Ramone Smiley Work Phone: [facility] Work Phone: 12-06-2021 15:22-0400 Body mass index (BMI) [Ratio] 30.2 kg/m2 Dr. Ramone Smiley Work Phone: [facility] Work Phone: 12-06-2021 15:22-0400 Body weight 77.[address] Ramone Smiley Work Phone: [facility] Work Phone: 12-06-2021 15:22-0400 Diastolic blood pressure 84 mm[Hg] Dr. Ramone Smiley Work Phone: [facility] Work Phone: 12-06-2021 15:22-0400 Systolic blood pressure 122 mm[Hg] Dr. Ramone Smiley Work Phone: [facility] Work Phone: 12-04-2021 11:22-0400 Diastolic blood pressure 70 mm[Hg] Dr. Ramone Smiley Work Phone: [facility] Work Phone: 12-04-2021 11:22-0400 Systolic blood pressure 124 mm[Hg] Dr. Ramone Smiley Work Phone: [facility] Work Phone: 12-04-2021 11:22-0400 Diastolic blood pressure 70 mm[Hg] Dr. Ramone Smiley Work Phone: [facility] Work Phone: 12-04-2021 11:22-0400 Systolic blood pressure 124 mm[Hg] Dr. Ramone Smiley Work Phone: [facility] Work Phone: 12-02-2021 14:03-0400 Diastolic blood pressure 60 mm[Hg] Dr. Ramone Smiley Work Phone: [facility] Work Phone: 12-02-2021 14:03-0400 Systolic blood pressure 138 mm[Hg] Dr. Ramone Smiley Work Phone: [facility] Work Phone: 12-02-2021 14:03-0400 Diastolic blood pressure 60 mm[Hg] Dr. Ramone Smiley Work Phone: [facility] Work Phone: 12-02-2021 14:03-0400 Systolic blood pressure 138 mm[Hg] Dr. Ramone Smiley Work Phone: [facility] Work Phone: 01-13-2017 14:21-0400 BMI (Body Mass [...] 01-13-2017 14:21-0400 Weight 79.2 kg Zuleika Heaton [facility] Work Phone: 10-09-2015 11:00-0500 BSA (Body Surface Area) 1.91 m2 Zuleika Heaton [facility] Work Phone: 08-29-2015 11:19-0500 Heart rate 109 /min Zuleika Heaton [facility] Work Phone: Encounters Encounter Date Encounter Type Care Provider Facility Start: 04-02-2025 Evaluation and management of inpatient Dr. Ramone Smiley MD Work Phone: -Intensive Care Unit Start: 04-02-2025 Dr. Sandeep Jean Baptiste DO -Intensive Care Unit Work Phone: Start: 03-25-2025 Dr. Melba Hartmann MD - [facility] Work Phone: Start: 03-24-2025 Dr. Melba Hartmann MD - [facility] Work Phone: Start: 03-23-2025 Dr. Melba Hartmann MD - [facility] Work Phone: Start: 03-22-2025 Dr. Melba Hartmann MD - [facility] Work Phone: Start: 03-21-2025 ambulatory Abigail Foster Facility :[facility] Start: 03-21-2025 End: 03-25-2025 Evaluation and management of inpatient Dr. Ramone Smiley MD Work Phone: -Medical Surgical 3 Start: 03-21-2025 End: 03-25-2025 Dr. Abigail Foster MD -[facility] 3 Work Phone: Start: 03-09-2025 Whitney Cao NP-C -[facility] Work Phone: Start: 03-09-2025 ambulatory Whitney Cao [employer]PER[employer]OR [employer] Facili ty:[facility] Start: 03-07-2025 ambulatory Whitney Cao SUPERVISOR CERE[employer] Facili ty:[facility] Start: 03-07-2025 Dr. Se Good MD -[facility] Start: 03-07-2025 End: 03-07-[address] Ramone Smiley MD Work Phone: -Cardiovascular Services Start: 03-07-2025 End: 03-07-2025 Whitney Cao SUPERVISOR CEREAL-C -Cardiovascular Services Work Phone: Start: 03-07-2025 End: 03-07-2025 ambulatory Whitney Cao NP Facility:[facility] Start: 03-04-2025 End: 03-04-2025 Dr. Ramone Smiley MD Work Phone: -Emergency Department Work Phone: Start: 03-04-2025 End: 03-04-2025 Emergency department patient visit Dr. Ramone Smiley MD Work Phone: -Emergency Department Start: 02-28-2025 Dr. Asha Anguiano MD -[facility] Work Phone: Start: 02-18-2025 End: 02-19-2025 Dr. Ramone Smiley MD Work Phone: -Emergency Department Work Phone: Start: 02-18-2025 End: 02-19-2025 Emergency department patient visit Dr. Ramone Smiley MD Work Phone: [facility] Work Phone: Start: 02-17-2025 Dr. Heydi Amaya MD - [facility] Work Phone: Start: 02-16-2025 Dr. Heydi Amaya MD - [facility] Work Phone: Start: 02-15-2025 End: 02-17-2025 ambulatory Nestor Bartlett Facility:[facility] Start: 02-15-2025 End: 02-17-[address] Ramone Smiley MD Work Phone: [facility] Work Phone: Start: 02-15-2025 End: 02-17-2025 Dr. Nestor Bartlett DO -Medical Surgical 3 Work Phone: Start: 02-13-2025 Dr. Lucio Borden [facility] Work Phone: Start: 02-12-2025 Dr. Lucio Borden [facility] Work Phone: Start: 02-11-2025 Dr. Lucio Borden [facility] Work Phone: Start: 02-10-2025 Dr. Lucio Borden [facility] Work Phone: Start: 02-09-2025 ambulatory Lucio Borden Facilit y:[facility] Start: 02-09-2025 End: 02-13-2025 Evaluation and management of inpatient Dr. Ramone Smiley MD Work Phone: [facility] Work Phone: Start: 02-09-2025 End: 02-13-2025 Tono Gomez [facility] Work Phone: Start: 02-07-2025 End: 02-07-[address] Ramone Smiley MD Work Phone: [facility] Work Phone: Start: 02-07-2025 End: 02-07-2025 Dr. Ramone Smiley MD -[facility] Start: 02-07-2025 End: 02-07-2025 ambulatory Ramone Smiley Facility:[facility] Start: 02-06-2025 Dr. Lucio Borden DO [facility] Work Phone: Start: 02-05-2025 Dr. Lucio Borden [facility] Work Phone: Start: 02-04-2025 Dr. Lucio Borden [facility] Work Phone: Start: 02-04-2025 ambulatory Ramone Smiley Facility:[facility] Start: 02-04-2025 End: 02-06-2025 Evaluation and management of inpatient Dr. Ramone Smiley MD Work Phone: [facility] Work Phone: Start: 02-04-2025 End: 02-06-2025 Dr. Lucio Borden DO -Progressive Care Unit Work Phone: Start: 01-31-2025 End: 01-31-2025 Whitney SUGGS -[facility] Work Phone: Start: 01-31-2025 End: 01-31-[address] Ramone Smiley MD Work Phone: [facility] Work Phone: Start: 01-26-2025 End: 01-26-2025 Dr. Ramone Smiley MD Work Phone: -Emergency Department Work Phone: Start: 01-26-2025 End: 01-26-2025 Emergency department patient visit Dr. Ramone Smiley MD Work Phone: [facility] Work Phone: Start: 01-24-2025 Dr. Melba Hartmann MD - [facility] Work Phone: Start: 01-23-2025 Dr. Becca Silverman MD -[facility] Start: 01-23-2025 Dr. Melba Hartmann MD - [facility] Work Phone: Start: 01-22-2025 Dr. Melba Hartmann MD - [facility] Work Phone: Start: 01-21-2025 Dr. Melba Hartmann MD - [facility] Work Phone: Start: 01-20-2025 ambulatory Ramone Smiley Facility:[facility] Start: 01-20-2025 Dr. Marcelina Soto MD -[facility] Start: 01-20-2025 ambulatory Sandeep Babb ty:[facility] Start: 01-20-2025 End: 01-24-2025 Evaluation and management of inpatient Dr. Ramone Smiley MD Work Phone: [facility] Work Phone: Start: 01-20-2025 End: 01-24-2025 Dr. Melba Hartmann MD -Progressive Care Unit Work Phone: Start: 01-19-2025 End: 01-19-[address] Ramone Smiley MD Work Phone: [facility] Work Phone: Start: 01-19-2025 End: 01-19-2025 Dr. Ramone Smiley MD -Laboratory [facility] Start: 01-19-2025 End: 01-19-2025 ambulatory Ramone Smiley Facility:[facility] Start: 01-15-2025 End: 01-15-2025 Dr. Jeevan Yoder DO -Emergency Departmen t Work Phone: Start: 01-15-2025 End: 01-15-2025 Emergency department patient visit Dr. Ramone Smiley MD Work Phone: -Emergency Department Work Phone: Start: 01-07-2025 End: 01-07-2025 Dr. Ethan Suarez DO -Emergency Departmen t Work Phone: Start: 01-07-2025 End: 01-07-2025 Emergency department patient visit Dr. Ramone Smiley MD Work Phone: -Emergency Department Work Phone: Start: 11-21-2024 ambulatory Ramone Smiley Facility:[facility] Start: 11-21-[address] Ramone Smiley MD -Physical Therapy Work Phone: Start: 11-21-2024 Dr. Ramone Smiley MD -Phys ical Therapy Work Phone: Start: 09-27-2024 End: 09-27-[address] Ramone Smiley MD -Laboratory, [facility] Start: 09-27-2024 End: 09-27-2024 Dr. Ramone Smiley MD -Laboratory [place] [facility] Start: 09-27-2024 End: 09-27-2024 ambulatory Ramone Smiley Facility:[facility] Start: 07-19-2024 End: 07-19-2024 ambulatory [facility] Facility:[facility] Start: 06-19-2024 End: 06-20-2024 Emergency department patient visit Billy Kothari Facility:[facility] Start: 05-30-2024 End: 05-30-2024 Emergency department patient visit Kwaku Marcial Facility:[facility] Start: 05-18-2024 End: 05-18-2024 ambulatory Jason BHATTI Facility:[facility] Start: 04-18-2024 End: 04-18-2024 ambulatory Ramone Smiley Facility:[facility] Start: 12-30-2023 Non-patient / Non-visit Dr. Richar Smiley Work Phone: [facility] [facility] Work Phone: Start: 12-29-2023 Non-patient / Non-visit Dr. Richar Smiley Work Phone: [facility] [facility] Work Phone: Start: 12-28-2023 Non-patient / Non-visit Dr. Richar Smiley Work Phone: [facility] [facility] Work Phone: Start: 12-27-2023 End: 12-30-2023 Evaluation and management of inpatient [facility]-Medical Surgical 3 Work Phone: Start: 10-26-2023 End: 10-26-[address] Ramone Smiley Work Phone: [facility] Work Phone: Start: 10-26-2023 End: 10-26-[address] Ramone Smiley Work Phone: [facility] Start: 08-17-2023 Non-patient / Non-visit Dr. Richar Smiley Work Phone: [facility] [facility] Work Phone: Start: 08-16-2023 Non-patient / Non-visit Dr. Richar Smiley Work Phone: [facility] [facility] Work Phone: Start: 08-15-2023 Non-patient / Non-visit Dr. Richar Smiley Work Phone: [facility] Work Phone: Start: 08-14-2023 Non-patient / Non-visit Dr. Richar Smiley Work Phone: [facility] Work Phone: Start: 08-13-2023 End: 08-17-2023 Evaluation and management of inpatient Dr. Ramone Smiley Work Phone: [facility]-Progressive Care Unit Work Phone: Start: 08-07-2023 End: 08-07-2023 Emergency department patient [facility] Start: 07-18-2023 End: 07-19-2023 Emergency department patient visit [facility]. [facility]iley [facility] Start: 07-15-2023 End: 07-15-[address] Ramone Smiley Work Phone: [facility] Work Phone: Start: 06-01-2023 End: 06-01-[address] Ram[facility] Work Phone: Start: 05-27-2023 End: 05-27-[address] [facility]iley [facility] [place] Work Phone: Start: 05-15-2023 End: 05-15-[address] Ramone Smiley Work Phone: [facility]-Radiology, [place] Work Phone: Start: 03-24-2023 End: 03-24-2023 ambulatory [facility] Work Phone: Start: 03-24-2023 End: 03-24-2023 Patient encounter procedure [facility]-Ultrasound, [facility] Work Phone: Start: 02-05-2023 End: 02-05-2023 ambulatory [facility] Work Phone: Start: 02-05-2023 End: 02-05-2023 Patient encounter procedure [facility]-Ultrasound, [facility] Start: 01-28-2023 End: 01-28-2023 Emergency department patient visit [facility]-Emergency Department Start: 01-28-2023 End: 01-28-2023 ambulatory [facility] Work Phone: Start: 01-28-2023 End: 01-28-2023 [facility] Start: 12-09-2022 End: 12-09-2022 ambulatory [facility] Work Phone: Start: 12-09-2022 End: 12-09-2022 Patient encounter procedure [facility] Start: 08-13-2022 End: 08-13-2022 ambulatory [facility] Work Phone: Start: 08-13-2022 End: 08-13-2022 Patient encounter procedure [facility]-Outpatient Breast Imaging Start: 07-14-2022 End: 07-14-2022 Emergency department patient visit [facility]-Emergency Department Start: 05-07-2022 End: 05-07-2022 ambulatory 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 APRN.MANAGER PATHOLOGY Work Phone: Hematology/Oncology Comment on above: Iron deficiency anem ia due to chronic blood loss (Primary Dx) Start: 05-07-2022 End: 05-07-2022 Patient encounter procedure 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 APRN.MANAGER PATHOLOGY Work Phone: [facility] Start: 02-27-2022 End: 02-27-[address] Ramone Smiley Work Phone: [facility] Start: 02-26-2022 End: 02-26-[address] Ramone Smiley Work Phone: [facility] Start: 02-10-2022 Telephone encounter Joseph sanders DO Work Phone: Hematology/Oncology Comment on above: Results (CBC and iro n levels) Start: 01-31-2022 Orders Only Joseph Lim Work Phone: Hematology/Oncology Comment on above: Iron deficiency anem ia due to chronic blood loss (Primary Dx) Start: 12-17-2021 End: 12-17-[address] Ramone Smiley Work Phone: [facility] Start: 12-10-2021 End: 12-10-[address] Ramone Smiley Work Phone: [facility] Start: 12-06-2021 End: 12-06-[address] Ramone Smiley Work Phone: [facility] Start: 12-04-2021 End: 12-04-[address] Ramone Smiley Work Phone: [facility] Start: 12-02-2021 End: 12-02-[address] Ramone Smiley Work Phone: [facility]-Laboratory, Specimen Start: 12-02-2021 End: 12-02-[address] Ramone Smiley Work Phone: [facility] Start: 09-29-2021 Telephone encounter Joseph sanders DO Work Phone: Hematology/Oncology Comment on above: Results; Follow Up Start: 09-13-2021 End: 09-13-[address] Ramone Smiley Work Phone: [facility]-Nuclear Medicine, [facility] Start: 08-21-[address] Ramone Smiley Work Phone: [facility]-Outpatient Breast Imaging Start: 08-12-2021 End: 08-12-[address] Ramone Smiley Work Phone: [facility] Start: 03-14-2021 Telephone encounter Joseph sanders DO Work Phone: Hematology/Oncology Comment on above: Results Start: 01-18-2018 Ambulatory [facility] Procedures Date Procedure Procedure Detail Performing Clinician Start: 04-02-2025 Dr. Ramone butcher MD Work Phone: Start: 04-02-2025 Urine microscopy: red cells Dr. Ramone Smiley MD Work Phone: Start: 04-02-2025 Urnls dip stick/tabl et reagent auto microscopy Dr. Ramone Smiley MD Work Phone: Start: 04-02-2025 Plain chest X-ray Dr. Yoni Smiley MD Work Phone: Start: 04-02-[address] Ramone Smiley MD Work Phone: Start: 04-02-2025 Venous oxygen satura tion measurement Dr. Ramone Smiley MD Work Phone: Start: 04-02-2025 End: 04-02-[address] Ramone Smiley MD Work Phone: Start: 04-02-2025 Calculation of international normalized ratio Dr. Ramone Smiley MD Work Phone: Start: 04-02-2025 D-dimer assay, quantitative Dr. Ramone Smiley MD Work Phone: Start: 04-02-[address] Ramone Smiley MD Work Phone: Start: 04-02-2025 Mean corpuscular hem oglobin concentration determination Dr. Ramone Smiley MD Work Phone: Start: 04-02-2025 Nucleated red blood cell count procedure Dr. Ramone Smiley MD Work Phone: Start: 04-02-2025 Platelet mean volume determination Dr. Ramone Smiley MD Work Phone: Start: 03-25-2025 Blood count smear mc rscp w/mnl difrntl [...] months Connor Rausch Start: 10-09-2015 End: 04-02-2016 MMConnor Good MD Start: 08-29-2015 End: 08-29-2015 BEAM MACHINE OPERATOR Se Good MD Start: 08-29-2015 End: 08-29-2015 Electrocardiogram, complete Se Lara i, MD Start: 08-29-2015 End: 08-29-2015 Follow Up Appt 6 weeks Se Good MD Anaerobic microbial culture Dr. Ramone Smiley Work Phone: Investigation of transfusion reaction Dr. Ramone Smiley Work Phone: Microbial culture, routine D niels Smiley Work Phone: Urine culture Plan of Treatment Date Care Activity Detail Author Start: 04-02-2025 Verification routine [facility] Start: 04-02-2025 Admission procedure [facility] Start: 04-02-2025 CT of thorax with contrast [facility] Start: 04-02-2025 Gas panel - Arterial blood [facility] Start: 04-02-2025 Hospital admission, emergency, from emergency room, medical nature [facility] Start: 04-02-2025 End: 04-02-2025 [facility] Start: 04-02-2025 Continuous pulse oximetry [facility] Start: 04-02-2025 Dual pressure sponta neous ventilation support [facility] Start: 03-25-2025 Patient discharge [facility] Start: 03-24-2025 Referral to service [facility] Start: 03-24-2025 [facility] Start: 03-23-2025 [facility] Start: 03-23-2025 [facility] Start: 03-23-2025 [facility] Start: 03-22-2025 Aspiration precautions [facility] Start: 03-22-2025 Speech therapy assessment [facility] Start: 03-22-2025 Following clinical pathway protocol [facility] Start: 03-22-2025 Assessment of risk o f venous thromboembolism [facility] Start: 03-22-2025 Care regimes management [facility] Start: 03-22-2025 Fall prevention [facility] Start: 03-22-2025 Inhalation therapy procedure [facility] Start: 03-22-2025 Insertion of cathete r into peripheral vein [facility] Start: 03-22-2025 Introduction of urin david catheter [facility] Start: 03-22-2025 Measuring intake and output [facility] Start: 03-22-2025 Notification of physician [facility] Start: 03-22-2025 Oxygen therapy [facility] Start: 03-22-2025 Providing care accor ding to standard [facility] Start: 03-22-2025 Provision of activit y privileges [facility] Start: 03-22-2025 Referral to occupati onal therapist [facility] Start: 03-22-2025 Referral to service [facility] Start: 03-22-2025 End: 03-22-2025 [facility] Start: 03-22-2025 Patient referral to dietitian [facility] Start: 03-21-2025 Verification routine [facility] Start: 03-21-2025 Admission procedure [facility] Start: 03-21-2025 Hospital admission, emergency, from emergency room, medical nature [facility] Start: 03-21-2025 End: 03-22-2025 [facility] Start: 03-07-2025 Cardiovascular stres s test using pharmacologic stress agent [facility] Start: 03-07-2025 NM Heart Views W str ess and W radionuclide IV [facility] Start: 03-04-2025 [facility] Start: 03-04-2025 End: 03-04-2025 [facility] Start: 03-04-2025 Blood culture [facility] Start: 02-19-2025 [facility] Start: 02-18-2025 [facility] Start: 02-17-2025 Patient discharge [facility] Start: 02-17-2025 [facility] Start: 02-16-2025 End: 02-16-2025 [facility] Start: 02-15-2025 [facility] Start: 02-15-2025 Following clinical pathway protocol [facility] Start: 02-15-2025 Ambulation without limitation [facility] Start: 02-15-2025 Assessment of risk o f venous thromboembolism [facility] Start: 02-15-2025 Care regimes management [facility] Start: 02-15-2025 Insertion of cathete r into peripheral vein [facility] Start: 02-15-2025 Notification of physician [facility] Start: 02-15-2025 Oxygen therapy [facility] Start: 02-15-2025 Providing care accor ding to standard [facility] Start: 02-15-2025 Referral to occupati onal therapist [facility] Start: 02-15-2025 Referral to service [facility] Start: 02-15-2025 [facility] Start: 02-15-2025 Verification routine [facility] Start: 02-15-2025 Admission procedure [facility] Start: 02-15-2025 Hospital admission, emergency, from emergency room, medical nature [facility] Start: 02-15-2025 [facility] Start: 02-15-2025 End: 02-15-2025 [facility] Start: 02-15-2025 Inhalation therapy procedure [facility] Start: 02-13-2025 Patient discharge [facility] Start: 02-11-2025 Inhalation therapy procedure [facility] Start: 02-10-2025 [facility] Start: 02-10-2025 Referral to service [facility] Start: 02-09-2025 Care regimes management [facility] Start: 02-09-2025 Notification of physician [facility] Start: 02-09-2025 [facility] Start: 02-09-2025 Following clinical pathway protocol [facility] Start: 02-09-2025 Ambulation without limitation [facility] Start: 02-09-2025 Assessment of risk o f venous thromboembolism [facility] Start: 02-09-2025 Catheterization of vein [facility] Start: 02-09-2025 Insertion of cathete r into peripheral vein [facility] Start: 02-09-2025 Oxygen therapy [facility] Start: 02-09-2025 Providing care accor ding to [facility] Start: 02-09-2025 Referral to occupati onal therapist [facility] Start: 02-09-2025 Referral to service [facility] Start: 02-09-2025 [facility] Start: 02-09-2025 Verification routine [facility] Start: 02-09-2025 Admission procedure [facility] Start: 02-09-2025 Hospital admission, emergency, from emergency room, medical nature [facility] Start: 02-09-2025 [facility] Start: 02-09-2025 Patient referral to dietitian [facility] Start: 02-06-2025 Patient discharge [facility] Start: 02-06-2025 Referral to service [facility] Start: 02-05-2025 [facility] Start: 02-04-2025 End: 02-04-2025 [facility] Start: 02-04-2025 Care regimes management [facility] Start: 02-04-2025 Notification of physician [facility] Start: 02-04-2025 Following clinical pathway protocol [facility] Start: 02-04-2025 Care planning and pr oblem solving actions [facility] Start: 02-04-2025 Ambulation without limitation [facility] Start: 02-04-2025 Assessment of risk o f venous thromboembolism [facility] Start: 02-04-2025 Catheterization of vein [facility] Start: 02-04-2025 Inhalation therapy procedure [facility] Start: 02-04-2025 Insertion of cathete r into peripheral vein [facility] Start: 02-04-2025 Oxygen therapy [facility] Start: 02-04-2025 Providing care accor ding to [facility] Start: 02-04-2025 [facility] Start: 02-04-2025 Hospital admission, emergency, from emergency room, medical nature [facility] Start: 02-04-2025 Verification routine [facility] Start: 02-04-2025 Admission procedure [facility] Start: 02-04-2025 [facility] Start: 02-04-2025 [facility] Start: 01-26-2025 [facility] Start: 01-24-2025 Referral to service [facility] Start: 01-24-2025 Patient discharge [facility] Start: 01-21-2025 [facility] Start: 01-21-2025 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 to 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 machine tailer [facility] Start: 01-20-2025 Oxygen therapy [facility] Start: 01-20-2025 Blood culture [facility] Start: 01-20-2025 Notification of physician [facility] Start: 01-20-2025 [facility] Start: 01-20-2025 End: 01-20-2025 [facility] Start: 01-20-2025 Application of intermittent pneumatic compression device [facility] Start: 01-20-2025 Following clinical pathway protocol [facility] Start: 01-20-2025 Cardiac monitoring [facility] Start: 01-20-2025 Catheterization of vein [facility] Start: 01-20-2025 Notification of physician [facility] Start: 01-20-2025 Vital signs measurements [facility] Start: 01-20-2025 Admission procedure [facility] Start: 01-20-2025 End: 01-20-2025 [facility] Start: 01-20-2025 Care regimes management [facility] Start: 01-20-2025 Inhalation therapy procedure [facility] Start: 01-20-2025 Patient referral to dietitian [facility] Start: 01-15-2025 [facility] Start: 01-15-2025 [facility] Start: 01-07-2025 [facility] Start: 12-30-2023 Patient discharge [facility] Start: 12-30-2023 Inhalation therapy procedure [facility] Start: 12-28-2023 Application of intermittent pneumatic compression device [facility] Start: 12-28-2023 Provision of overbed trapeze [facility] Start: 12-28-2023 Recommendation to continue with treatment [facility] Start: 12-28-2023 Ambulation therapy management [facility] Start: 12-28-2023 Application of device [facility] Start: 12-28-2023 Assessment of risk o f venous thromboembolism [facility] Start: 12-28-2023 Catheterization of vein [facility] Start: 12-28-2023 Exercises [facility] Start: 12-28-2023 Following clinical pathway protocol [facility] Start: 12-28-2023 Introduction of urin david catheter [facility] Start: 12-28-2023 Measuring intake and output [facility] Start: 12-28-2023 Neurovascular assessment [facility] Start: 12-28-2023 Patient education [facility] Start: 12-28-2023 Procedure discontinued [facility] Start: 12-28-2023 Provision of activit y privileges [facility] Start: 12-28-2023 Referral to occupati onal therapist [facility] Start: 12-28-2023 Referral to service [facility] Start: 12-28-2023 Vital signs measurements [facility] Start: 12-28-2023 Wound care [facility] Start: 12-28-2023 [facility] Start: 12-28-2023 Blood chemistry [facility] Start: 12-28-2023 Complete blood count [facility] Start: 12-28-2023 Following clinical pathway protocol [facility] Start: 12-28-2023 Assessment of risk o f venous thromboembolism [facility] Start: 12-28-2023 Care regimes management [facility] Start: 12-28-2023 Consultation [facility] Start: 12-28-2023 Incentive spirometry [facility] Start: 12-28-2023 Insertion of cathete r into peripheral vein [facility] Start: 12-28-2023 Notification of physician [facility] Start: 12-28-2023 Oxygen therapy [facility] Start: 12-28-2023 Providing care accor ding to standard [facility] Start: 12-28-2023 Provision of activit y privileges [facility] Start: 12-28-2023 Referral to occupati onal therapist [facility] Start: 12-28-2023 Referral to service [facility] Start: 12-28-2023 [facility] Start: 12-27-2023 Verification routine [facility] Start: 12-27-2023 Admission procedure [facility] Start: 08-17-2023 Referral to service [facility] Start: 08-17-2023 Patient discharge [facility] Start: 08-16-2023 [facility] Start: 08-13-2023 Following clinical pathway protocol [facility] Start: 08-13-2023 Assessment of risk o f venous thromboembolism [facility] Start: 08-13-2023 Care regimes management [facility] Start: 08-13-2023 Insertion of cathete r into peripheral vein [facility] Start: 08-13-2023 Measuring intake and output [facility] Start: 08-13-2023 Notification of physician [facility] Start: 08-13-2023 Providing care accor ding to [facility] Start: 08-13-2023 Provision of activit y privileges [facility] Start: 08-13-2023 Referral to occupati onal therapist [facility] Start: 08-13-2023 Referral to service [facility] Start: 08-13-2023 [facility] Start: 08-13-2023 Admission procedure [facility] Start: 08-13-2023 Verification routine [facility] Start: 08-13-2023 Bacteria identified in Blood by Culture Blood Culture [facility] Start: 08-13-2023 Bacteria identified in Urine by Culture Urine Culture [facility] Start: 08-13-2023 Hospital admission, emergency, from emergency room, medical nature [facility] Start: 08-13-2023 [facility] Start: 08-13-2023 End: 08-13-2023 Blood culture [facility] Start: 08-13-2023 Inhalation therapy procedure [facility] Start: 08-13-2023 Patient referral to dietitian [facility] Start: 08-07-2023 [facility] Start: 07-19-2023 End: 07-19-2023 [facility] Start: 07-18-2023 Measurement of occul t blood in stool specimen using immunoassay [facility] Start: 07-18-2023 Bacteria identified in Urine by Culture Urine Culture [facility] Start: 05-07-2022 BP CONTROLLED (<130/80) BP CONTROLLE D (<130/80) [facility] Start: 05-01-2022 Influenza vaccination [facility] Start: 03-28-2022 COVID-19 VACCINE (4 - Booster for Moderna series) COVID-19 VACCINE (4 - Booster for Moderna series) [facility] Start: 09-29-2021 End: 09-29-2022 MONOCLONAL PROTEIN, SERUM (BLOOD) MONOCLONAL PROTEIN, SERUM (BLOOD) Lab Routine Anemia, unspecified type Expected: 09/29/2021, Expires: 09/29/2022 [facility] Work Phone: Comment on above: Expected: 09/29/2021 , Expires: 09/29/2022 Start: 09-29-2021 End: 09-29-2022 PROTEIN ELECTROPHORESIS SERUM W/INTERP PROTEIN ELECTROPHORESIS SERUM W/INTERP Lab Routine Anemia, unspecified type Expected: 09/29/2021, Expires: 09/29/2022 [facility] Work Phone: Comment on above: Expected: 09/29/2021 , Expires: 09/29/2022 Start: 08-31-2021 ADVANCE DIRECTIVE DISCUSSION ADVANCE DIRECTIVE DISCUSSION [facility] Start: 05-16-2021 COVID-19 VACCINE (3 - Booster for Moderna series) COVID-19 VACCINE (3 - Booster for Moderna series) [facility] Start: 05-04-2018 Urine microalbumin profile DTAP,TDAP,TD (2 - Td or Tdap) [facility] Start: 08-16-2016 3 comp foot exam completed DIABETIC FOOT EXAM [facility] Start: 10-09-2015 End: 04-02-2016 Follow Up Appt 6 months Follow Up Appt 6 months [facility] Work Phone: Start: 10-09-2015 End: 04-02-2016 MMM MMM [facility] Work Phone: Start: 08-29-2015 End: 08-29-2015 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 [facility] Work Phone: Start: 08-29-2015 End: 08-29-2015 Electrocardiogram, complete EKG (In office) [facility] Work Phone: Start: 08-29-2015 End: 08-29-2015 Follow Up Appt 6 weeks Follow Up Appt 6 weeks [facility] Work Phone: Start: 07-01-2014 Hemoglobin A1c/Hemoglobin.total in Blood HBA1C [facility] Start: 06-25-2014 Hepatitis B surface antibody level LDL CHOLESTEROL [facility] Start: 06-17-2014 Hepatitis C antibody , confirmatory test DILATED RETINAL EXAM [facility] Start: 02-12-2013 PNEUMOCOCCAL: 65+ (2 - PCV) PNEUMOCOCCAL: 65+ (2 - PCV) [facility] Start: 02-12-2013 PNEUMOCOCCAL: 65+ (3 - PCV) PNEUMOCOCCAL: 65+ (3 - PCV) [facility] Start: 02-18-2012 SHINGRIX VACCINE (1 of 2) JIMENEZ GRIX VACCINE (1 of 2) [facility] Start: 02-18-2012 SHINGRIX VACCINE (2 of 3) JIMENEZ GRIX VACCINE (2 of 3) [facility] Start: 01-02-1962 ANNUAL PCP TEAM [employer] ATTENDANT ERIS DISEASE VISIT ANNUAL PCP TEAM CHRONIC DISEASE VISIT [facility] Start: 01-02-1962 BP CONTROLLED (<130/80) BP CONTROLLE D (<130/80) [facility] Start: 01-02-1962 HEPATITIS C SCREENING HEPATITIS C SC FORTINO [facility] Start: 1956 Adult depression screening assessment DEPRESSION SCREENING [facility] Anion gap measurement [facility] Bacteria identified in Sputum by Respiratory culture [facility] BUN/Creatinine ratio [facility] Calcium [Mass/volume ] in Serum or Plasma [facility] Carbon dioxide, tota l [Moles/volume] in Serum or Plasma [facility] End: 01-31-2023 CBC W Auto Differential panel - Blood CBC + DIFF Lab STAT Iron deficiency anemia due to chronic blood loss Every 3 months for 4 Occurrences starting 01/31/2022 until 01/31/2023 [facility] Work Phone: Comment on above: Every 3 months for 4 Occurrences starting 01/31/2022 until 01/31/2023 End: 09-29-2022 CBC W Auto Differential panel - Blood CBC + DIFF Lab Routine Anemia, unspecified type 1 Occurrences starting 09/29/2021 until 09/29/2022 [facility] Work Phone: Comment on above: 1 Occurrences starti ng 09/29/2021 until 09/29/2022 Chloride [Moles/volu me] in Serum or Plasma [facility] End: 09-29-2022 Comprehensive metabolic 2000 panel - Serum or Plasma COMP METABOLIC PANEL Lab Routine Anemia, unspecified type 1 Occurrences starting 09/29/2021 until 09/29/2022 [facility] Work Phone: Comment on above: 1 Occurrences starti ng 09/29/2021 until 09/29/2022 Creatinine [Moles/vo lume] in Serum or Plasma [facility] Erythrocyte mean corpuscular volume determination [facility] End: 01-31-2023 FERRITIN BLD FERRITIN BLD Lab Routine Iron deficiency anemia due to chronic blood loss Every 3 months for 4 Occurrences starting 01/31/2022 until 01/31/2023 [facility] Work Phone: Comment on above: Every 3 months for 4 Occurrences starting 01/31/2022 until 01/31/2023 Glucose [Mass/volume ] in Serum or Plasma [facility] Hematocrit [Volume Fraction] of Blood [facility] Hemoglobin [Mass/vol ume] in Blood [facility] Hemoglobin A1c/Hemoglobin.total in Blood [facility] End: 01-31-2023 IRON + TIBC IRON + TIBC Lab Routine Iron deficiency anemia due to chronic blood loss Every 3 months for 4 Occurrences starting 01/31/2022 until 01/31/2023 [facility] Work Phone: Comment on above: Every 3 months for 4 Occurrences starting 01/31/2022 until 01/31/2023 Leukocytes [#/volume ] in Blood [facility] Magnesium measurement [facility] Mean corpuscular hemoglobin concentration determination [facility] Mean corpuscular hemoglobin determination [facility] Measurement of renal function [facility] Microorganism identi fied in Unspecified specimen by Culture [facility] Microscopic observat ion [Identifier] in Unspecified specimen by Gram stain [facility] NM Heart Views W str ess and W radionuclide IV [facility] Patient Education [facility] Work Phone: Patient referral [facility] Work Phone: Platelets [#/volume] in Blood [facility] Potassium [Moles/vol ume] in Serum or Plasma [facility] Procalcitonin [Mass/volume] in Serum or Plasma by Immunoassay [facility] Red blood cell count [facility] Red cell distributio n width determination [facility] Respiratory pathogen s DNA and RNA panel - Respiratory specimen by BEBETO with probe detection [facility] Sodium [Moles/volume ] in Serum or Plasma [facility] Troponin T.cardiac [Mass/volume] in Serum or Plasma by High sensitivity method [facility] Troponin T.cardiac [Mass/volume] in Serum or Plasma by High sensitivity method [facility] Urea nitrogen [Mass/volume] in Serum or Plasma [facility] Urine culture [facility] Urine culture [facility] Urine culture [facility] US Heart limited [facility] Immunizations Immunization Date Immunization Notes Care Provider Fa [facility] 07-03-2022 influenza, injectabl e, quadrivalent, preservative free Dr. Ramone Smiley MD Work Phone: [facility] 11-26-2021 Covid (Moderna) Dr. Ramone leon MD Work Phone: [facility] 08-22-2015 pneumococcal conjuga te vaccine, [address] Ramone Smiley MD Work Phone: [facility] 07-12-2012 influenza virus vacc ine, unspecified formulation Joseph Rolle DO Work Phone: [facility] 02-13-2012 pneumococcal polysaccharide vaccine, 23 valent Joseph Rolle DO Work Phone: [facility] 12-24-2011 zoster vaccine, live Joseph chatterjee DO Work Phone: [facility] 06-02-2011 influenza virus vacc jcarlos, unspecified formulation Joseph Rolle DO Work Phone: [facility] 08-09-2010 influenza virus vacc jcarlos, unspecified formulation Joseph Rolle DO Work Phone: [facility] 05-30-2009 influenza virus vacc jcarlos, unspecified formulation Joseph Rolle DO Work Phone: [facility] 09-07-2008 influenza virus vacc ine, unspecified formulation Joseph Rolle DO Work Phone: [facility] Work Phone: 05-04-2008 tetanus toxoid, redu octavio diphtheria toxoid, and acellular pertussis vaccine, adsorbed Joseph Rolle DO Work Phone: [facility] Work Phone: 06-28-2007 influenza virus vacc jcarlos, unspecified formulation Joseph Rolle DO Work Phone: [facility] Work Phone: 08-31-2005 pneumococcal polysaccharide vaccine, 23 valent Joseph Rolle DO Work Phone: [facility] Work Phone: Payers Date Payer Category Payer Self-pay [id number] 2017 Medicare HU[employer]NA MEDICARE HU[employer]NA MEDICARE PPO [id number] 2017-Present [phone] [address] [place] [address] PPO [id number] 2017 Medicare HUMANA MEDICARE HU[employer]NA MEDICARE PPO [id number] 2017-Present [phone] [address] [place] [address] PPO [id number] 2016 Medicare [id number] Private Health Insurance Unknown [id number] 2.16.840.1.603287.3.579. 2.462 Unknown [id number] 2.16840.1.813672.3.579. 2.462 Unknown [id number] 2.16.840.1.827377.3.579. 2.462 Unknown [id number] 2.16.840.1.672689.3.579. 2.462 Unknown [id number] 2.840.1.276871.3.579. 2.462 Unknown [id number] 2.840.1.449443.3.579. 2.462 Unknown [id number] 2.840.1.473527.3.579. 2.462 Unknown [id number] 2.840.1.321940.3.579. 2.462 Unknown [id number] 2.840.1.794867.3.579. 2.462 Unknown [id number] 2.840.1.509256.3.579. 2.462 Unknown [id number] 2.840.1.165362.3.579. 2.462 Unknown [id number] 2.16840.1.030262.3.579. 2.462 Unknown [id number] 2.840.1.842234.3.579. 2.462 Unknown [id number] 2.840.1.309304.3.579. 2.462 Unknown [id number] 2.16.840.1.778244.3.579. 2.462 Unknown [id number] 2.16840.1.077071.3.579. 2.462 Unknown [id number] 2.16840.1.285980.3.579. 2.462 Unknown [id number] 2.16840.1.381559.3.579. 2.462 Unknown [id number] 2.16.840.1.297116.3.579. 2.462 Unknown [id number] 2.16840.1.085759.3.579. 2.462 Unknown [id number] 2.16.840.1.328099.3.579. 2.462 Unknown [id number] 2.16840.1.243711.3.579. 2.462 Unknown [id number] 2.840.1.470103.3.579. 2.462 Unknown [id number] 2.840.1.208226.3.579. 2.462 Unknown [id number] 2.840.1.934177.3.579. 2.462 Unknown [id number] 2.840.1.168968.3.579. 2.462 Unknown [id number] 2.840.1.132900.3.579. 2.462 Unknown [id number] 2.840.1.063202.3.579. 2.462 Unknown [id number] 2.840.1.170853.3.579. 2.462 Unknown [id number] 2.840.1.752116.3.579. 2.462 Unknown [id number] 2.840.1.165029.3.579. 2.462 Unknown [id number] 2.840.1.129034.3.579. 2.462 Unknown [id number] 2.16840.1.575152.3.579. 2.462 Unknown [id number] 2.840.1.837196.3.579. 2.462 Unknown [id number] 2.16840.1.607607.3.579. 2.462 Unknown [id number] 2.840.1.577230.3.579. 2.462 Unknown [id number] 2.16.840.1.168579.3.579. 2.462 Unknown [id number] 2.16840.1.107806.3.579. 2.462 Unknown [id number] 2.16.840.1.087656.3.579. 2.462 Unknown [id number] 2.16.840.1.094895.3.579. 2.462 Unknown [id number] 2.16.840.1.733708.3.579. 2.462 Unknown [id number] 2.16.840.1.044128.3.579. 2.462 Unknown [id number] 2.16840.1.304973.3.579. 2.462 Unknown [id number] 2.16840.1.407351.3.579. 2.462 Unknown [id number] 2.840.1.024566.3.579. 2.462 Unknown [id number] 2.840.1.107090.3.579. 2.462 Social History Date Type Detail Facility Start: 12-06-2021 End: 08-13-2023 Tobacco smoking status [facility] Unknown if ever smoked [facility] Start: 12-02-2019 None [facility] Start: 12-02-2019 Spouse/ Signif icant Other [facility] Start: 07-06-2020 Non-smoker [facility] Start: 1945 Sex Assigned At Female W [facility] Start: 02-03-2012 End: 04-02-2025 Tobacco smoking status MNIS Ex-smoker [facility] End: 01-30-2012 History of tobacco use Current smoker [facility] End: 01-30-2012 History of tobacco use Cigarette Smoker [facility] Start: 02-03-2012 End: 03-22-2012 Cigarettes smoked current (pack per day) - Reported 0.5 [facility] Start: 02-03-2012 End: 03-22-2012 Tobacco use and exposure Smokeless tobacco non-user [facility] Start: 05-07-2021 End: 05-07-2022 Alcohol intake Current non-drinker of alcohol (finding) [facility] Start: 1945 Sex Assigned At Not on file [facility] Start: 10-05-2021 End: 11-04-2021 Exposure to SARS-CoV-2 (event) Not sure [facility] NEGATED: Highlighted row [facility] Medical Equipment Procedure Code Equipment Code Equipment Origin al Text Equipment Identifier Dates 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 Start: 12-28-2023 Primary uncemented hemiarthroplasty of hip unitrax neck adjustment sleeve FDA Start: 12-28-2023 Primary uncemented hemiarthroplasty of hip ([id number]) [id number] FDA Start: 12-28-2023 Primary uncemented hemiarthroplasty of [...] Facility 03-25-2025 Functional status Ambulates;Gume r;Bathroom Privilege [facility] Work Phone: 02-17-2025 Functional status Chair [facility] Work Phone: 02-16-2025 Functional status Well [facility] Work Phone: 02-13-2025 Functional status Chair [facility] Work Phone: 02-06-2025 Functional status Chair [facility] Work Phone: 01-24-2025 Functional status Ambulates [facility] Work Phone: 01-23-2025 Functional status Fair [facility] Work Phone: 12-30-2023 Functional status Bedrest [facility] Work Phone: 08-17-2023 Functional status Ambulates [facility] Work Phone: Mental Status Date Assessment Result Facility 03-25-2025 Cognitive function Voice/Name [facility] Work Phone: 02-17-2025 Cognitive function Voice/Name [facility] Work Phone: 02-13-2025 Cognitive function Voice/Name [facility] Work Phone: 02-06-2025 Cognitive function Voice/Name [facility] Work Phone: 01-24-2025 Cognitive function Voice/Name [facility] Work Phone: 12-30-2023 Cognitive function Voice/Name [facility] Work Phone: 08-17-2023 Cognitive function Voice/Name [facility] Work Phone: 08-13-2023 Cognitive function Level Of Cons ciousness Awake;Alert;Appropriate;Follow s Commands [facility] Work Phone: 01-28-2023 Cognitive function Level Of Cons ciousness Awake;Alert;Appropriate;Follow s Commands [facility] Work Phone: Clinical Notes 03-14-2021 to 04-02-2025 Note Date & Type Note Facility 04-02-2025 Radiology Diagnostic study note [facility] 03-25-2025 Discharge summary Note Date/Time March 25, 2025 2:37pm [facility] Medical Records Department [address] [place] [address] Discharge Summary 03/25/25 1133 MR#: [id number] Acct: [id number] Name: OLGA DONALDSON Rep #:[id number] : 1945 80 From: Melba Hartmann MD PCP: Dr. Ramone Smiley MD Status:ADM [id number] Providers Date of Admission: 03/21/25 Date of [...] with her primary care doctor and her tape machine tailer for medications to be adjusted as needed. [...] 03/22/25 12:41 RMA (Rec: 03/22/25 12:41 RMA [id number]) Nutrition Malnutrition Evidence of Yes Malnutrition Exists [...] Neut % (Auto) 61.3, Lymph % (Auto) 26.3,Boundary % (Auto) 10.4 H, Eos % (Auto) [...] 12:18: POC Glucose 193 H Microbiology: Microbiology 07/22/25 15:05 Urine Catheter - Catheter Urine Culture [...] Health Service Charges/Coding Visit Charges Inpatient E&M: 54857 Disch Hosp >30min 03/25/25 1437 <Electronically signed by Melba Hartmann MD> Cosigner Signature (if applicable): CC: Dr. Ramone Smiley MD; Dr. Melba Hartmann MD~ Signed [facility] Work Phone: 1(138) 706-635207-26-2025 Hospital Discharge instructionsAdditional Instructions cardizem stopped. Metoprolol cut down to 12.5mg bid. Lasix reduced to 20mg daily due to to hypotension Date of Discharge: 03/25/25[facility] Work Phone: 1(238) 403-939307-26-2025 Discharge summary Author Melba [facility] Note Date/Time March 25, 2025 11:3 3am [facility] Medical Records Department [address] [place] [id number] Instructions for Home/Discharge Instructions 03/25/25 1126 MR#: [id number] Acct: [id number] Name: OLGA DONALDSON Rep #:[id number] : 1945 80 From: Melba Hartmann MD [...] Service 03/25/25 1133<Electronically signed by Melba Hartmann MD>Mebla Hartmann MD CC: Dr. Abigail Foster MD; Dr. Ramone Smiley MD ~ Signed [facility] Work Phone: 1(935) 110-643707-26-2025 [facility]07-25-2025 Progress note Author Melba [facility] Note Date/Time March 24, 2025 4:46 pm [facility] Medical Records Department [address] [place] [address] Progress Note 03/24/25 1200 MR#: [id number] Acct: [id number] Name: OLGA DONALDSON Rep #:[id number] : 1945 80 From: Melba Hartmann MD PCP: Dr. Ramone Smiley MD Status:ADM IN Location: MS3 [id number] Subjective Subjective Patient seen and examined. She [...] 03/22/25 12:41 RMA (Rec: 03/22/25 12:41 RMA [id number]) Nutrition Malnutrition Evidence of Yes Malnutrition Exists [...] Std Deviation 52.3 H, RDW Coeff of Ivjay 16.4 H, Plt Count 288,MPV 10.7, Immature Gran % (Auto) 0.300, Neut % (Auto) 68.8, Lymph % (Auto) 21.3,Boundary % (Auto) 8.5, Eos % (Auto) 0.8, [...] prophylaxis: heparin. Charges/Coding Visit Charges Inpatient E&M: 81639 Subs Hosp L2 03/24/25 0615 <Electronically signed by Melba Hartmann MD> Melba Hartmann MD Cosigner Signature (if applicable): CC: ~ Signed [facility] Work Phone: 1(193) 990-778707-25-2025 Discharge summary Author Ethan Suarez [facility] [facility] Note Date/Time March 23, 2025 10:1 2pm [facility] Medical Records Department [address] [place] [address] Emergency Department Summary 03/21/25 MR#: [id number] Acct: [id number] Name: OLGA DONALDSON Rep #:[id number] : 1945 80 From: Ethan Casanova PCP: Dr. Ramone Smiley MD Status:ADM [facility] <Dr. Ethan Suarez DO - Last Filed: 03/23/25 22:12> History of Present Illness Chief Complaint: Back Informant: patient Narrative Narrative: Intermittent right sided back spasms for last couple weeks. Symptoms started 2 days after patient in the ED states had what shajosemanuel describes as an enema due toconstipation. She [...] to prolonged laying down at skilled facility. [facility] <Dr. Ethan Suarez DO - Last Filed: 03/23/25 22:12> [facility] Medical History Former smoker On home [...] mg tablet 25 mg PO BID BLOOD AK ESSURE 08/16/18 01/15/25 History pantoprazole 40 mg [...] me Verified 03/23/25 18:38 really crazy called bellperson on people amoxicillin AdvReac YEAST Verified 03/21/25 [...] clinician: N/A This note was generated with [employer] dictation software. It may contain incorrectwords, spelling, [...] % (Auto) 62.3 Lymph % (Auto) 27.1 Boundary % (Auto) 8.6 Eos % (Auto) 0.8 [...] Sl. Cloudy Urine pH 7.0 Ur Specific Lancaster 1.010 Urine Protein 30 H Urine Glucose [...] in the abdominal CT report. Reading Location: [facility] Abdomen/Pelvis CT 03/21/25 18:02 IMPRESSION: 1. Similar patchy airspace consolidation in the bilateral lung bases, suggestingaspiration. 2. Moderate colonic stool burden with persistent mild distention and wall thickening of the rectal vault, suggesting chronic constipation and stercoral proctitis, although less pronounced from prior exam. 3. Multiple additional non-acute ancillary findings, as described above. Reading Location: [facility] <Dr. Noé Currie, DO - Last Filed: [...] clinician: N/A This note was generated with [employer] dictation software. It may contain incorrectwords, spelling, [...] diffuse weakness and admitted ambulations admitted to [facility] under hospitalist. Discussed with Dr. Foster. Lab [...] % (Auto) 62.3 Lymph % (Auto) 27.1 Boundary % (Auto) 8.6 Eos % (Auto) 0.8 [...] Sl. Cloudy Urine pH 7.0 Ur Specific Lancaster 1.010 Urine Protein 30 H Urine Glucose [...] in the abdominal CT report. Reading Location: [facility] Abdomen/Pelvis CT 03/21/25 18:02 IMPRESSION: 1. Similar patchy airspace consolidation in the bilateral lung bases, suggestingaspiration. 2. Moderate colonic stool burden with persistent mild distention and wall thickening of the rectal vault, suggesting chronic constipation and stercoral proctitis, although less pronounced from prior exam. 3. Multiple additional non-acute ancillary findings, as described above. Reading Location: [facility] Discharge Plan Dx/Rx/DC Orders Clinical Impression: Back muscle spasm, Acute UTI Disposition Disposition: Acute Care Hospital [facility] Discharge Date/Time: 03/22/25 00:22 What to do if you have Problems For any increased pain, shortness of breath, bleeding, nausea or vomiting, chestpain, or any unexpected problems, contact your Primary Care Provider. Call [facility] ([phone]) or report to the closest Emergency Room. Call 911 if necessary. 03/23/252211 <Electronically signed by Ethan Casanova> Cosigner Signature (if applicable): 03/21/25 2301 <Electronically signed by Noé Currie DO> CC: Dr. Ramone Smiley MD ~ Signed [facility] Work Phone: [phone]) [phone] Progress note Author Mel[facility] Note Date/Time March 23, 2025 1:37 pm [facility] Medical Records Department [address] [place] [address] Progress Note 03/23/25 1328 MR#: [id number] Acct: [id number] Name: OLGA DONALDSON Rep #:[id number] : 1945 80 From: Melba Hartmann MD PCP: Dr. Ramone Smiley MD Status:ADM IN Location: [facility] GZ500-4 Subjective Subjective Patient seen and examined with [...] 03/22/25 12:41 RMA (Rec: 03/22/25 12:41 RMA [id number]) Nutrition Malnutrition Evidence of Yes Malnutrition Exists [...] 76.1 H, Lymph % (Auto) 16.5 L, Boundary % (Auto) 6.8, Eos % (Auto) 0.0, [...] prophylaxis: heparin. Charges/Coding Visit Charges Inpatient E&M: 29567 Subs Hosp L2 03/23/25 1335 <Electronically signed by Melba Hartmann MD> Melba Hartmann MD Cosigner Signature (if applicable): CC: ~ Signed [facility] Work Phone: [phone]) 306-997207-23-2025 Progress note Author Melba [facility] Note Date/Time March 22, 2025 2:48 pm [facility] Medical Records Department [address] [place] [address] Progress Note 03/22/25 1428 MR#: [id number] Acct: [id number] Name: OLGA DONALDSON Rep #:[id number] : 1945 80 From: Melba Hartmann MD PCP: Dr. Ramone Smiley MD Status:ADM IN [facility] Subjective Subjective Patient seen and examined with [...] 03/22/25 12:41 RMA (Rec: 03/22/25 12:41 RMA [id number]) Nutrition Malnutrition Evidence of Yes Malnutrition Exists [...] Sl. Cloudy, Urine pH 7.0, Ur Specific Lancaster 1.010, Urine Protein 30 H, Urine Glucose [...] Neut % (Auto) 62.3, Lymph % (Auto) 27.1,Boundary % (Auto) 8.6, Eos % (Auto) 0.8, [...] % (Auto) 65.3, Lymph % (Auto) 24.0, Boundary % (Auto) 8.0, Eos % (Auto) 0.9, [...] in the abdominal CT report. Reading Location: [facility] Abdomen/Pelvis CT 03/21/25 18:02 IMPRESSION: 1. Similar patchy airspace consolidation in the bilateral lung bases, suggestingaspiration. 2. Moderate colonic stool burden with persistent mild distention and wall thickening of the rectal vault, suggesting chronic constipation and stercoral proctitis, although less pronounced from prior exam. 3. Multiple additional non-acute ancillary findings, as described above. Reading Location: [facility] Physical Exam Const alert, oriented x3 and [...] prophylaxis: heparin. Charges/Coding Visit Charges Inpatient E&M: 35398 Subs Hosp L2 03/22/25 4218 <Electronically signed by Melba Hartmann MD> Melba Hartmann MD Cosigner Signature (if applicable): CC: ~ Signed [facility] Work Phone: [phone]) [phone] History and physical note Author Abigail Foster [facility] Note Date/Time March 22, 2025 12:4 1am [facility] Medical Records Department [address] [place] [address] H&P Exam - Hospitalist 03/21/25 2248 MR#: [id number] Acct: [id number] Name: OLGA DONALDSON Rep #:[id number] : 1945 80 From: Abigail Foster MD PCP: Dr. Ramone Smiley MD Status:ADM IN Location: [facility] HE030-0 HPI - General General Date of Admission: 03/21/25 [...] considered in remission who presents to the [facility] ED on 03/21/2025 with history of right-sided [...] 1, morphine 2 mg IV x 1, [id number] mg p.o. x 1. [facility] Medical History Former smoker On home [...] mg tablet 25 mg PO BID BLOOD AK ESSURE 08/16/18 01/15/25 History pantoprazole 40 mg [...] Sl. Cloudy, Urine pH 7.0, Ur Specific Lancaster 1.010, Urine Protein 30 H, Urine Glucose [...] Neut % (Auto) 62.3, Lymph % (Auto) 27.1,Boundary % (Auto) 8.6, Eos % (Auto) 0.8, [...] in the abdominal CT report. Reading Location: [facility] Abdomen/Pelvis CT 03/21/25 18:02 IMPRESSION: 1. Similar patchy airspace consolidation in the bilateral lung bases, suggestingaspiration. 2. Moderate colonic stool burden with persistent mild distention and wall thickening of the rectal vault, suggesting chronic constipation and stercoral proctitis, although less pronounced from prior exam. 3. Multiple additional non-acute ancillary findings, as described above. Reading Location: [facility] Assessment & Plan Assessment/Plan (1) Acute UTI: [...] considered in remission who presents to the [facility] ED on 03/21/2025 with history of right-sided [...] Time: 16minutes. Charges/Coding Visit Charges Inpatient E&M: 03575 Init Hosp L3 Procedures Hospitalists Procedures: 73726 Advncd Care Plan 30 Min 03/22/25 0041 <Electronically signed by Abigail Foster MD> Cosigner Signature (if applicable): CC: Dr. Abigail Foster MD; Dr. Ramone Smiley MD~ Signed [facility] Work Phone: [phone]) [phone] Radiology Diagnostic study [facility]07-22-2025 Radiology Diagnostic study [facility]07-05-2025 Radiology Diagnostic study [facility] 03-04-2025 Discharge summary Author Jeevan Yoder [facility] Note Date/Time March 04, 2025 11:14 pm [facility] Medical Records Department [address] [place] [address] Emergency Department Summary 03/04/25 MR#: [id number] Acct: [id number] Name: OLGA DONALDSON Rep #:[id number] : 1945 80 From: Jeevan Yoder DO [...] denies any history of kidney stones. [facility] Medical History History of diabetes mellitus [...] mg tablet 25 mg PO BID BLOOD AK ESSURE 08/16/18 01/15/25 History pantoprazole 40 mg [...] needle aspiration (~10/2020) H/O dilation and curettage (~11/10/20) History of Achilles tendon repair Retinopathy History [...] following commands knew that she was at [facility] year is 2024 Skin: Warm, dry, [...] % (Auto) 66.1 Lymph % (Auto) 24.2 Boundary % (Auto) 6.9 Eos % (Auto) 1.7 [...] Clarity Cloudy Urine pH 7.0 Ur Specific Lancaster 1.010 Urine Protein 100 H Urine Glucose [...] aspiration pneumonia. 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 Reading Location: [place] [address] Discharge Plan Triage Chief Complaint: Serna C/O [...] other concerns or worsening symptoms Print Language: South African Disposition Disposition: Home, Self Care What to do if you have Problems For any increased pain, shortness of breath, bleeding, nausea or vomiting, chestpain, or any unexpected problems, contact your Primary Care Provider. Call [facility] ([phone]) or report to the closest Emergency Room. Call 911 if necessary. 03/04/25 0057 <Electronically signed by Jeevan Yoder DO> Isrealigner Signature (if applicable): CC: Dr. Ramone Smiley MD ~ Signed [facility] Work Phone: [phone]) [phone] Hospital Discharge instructionsAdditional Instructions Urine with signs of infection. You had infection a few weeks ago you self cath. Take finish antibiotic prescribed. Continue your Tylenol every 6 hours. Use Valium as needed. Follow-up with your doctor.[facility] Work Phone: [phone]) 924-582806-21-2025 Radiology Diagnostic study [facility]06-21-2025 Discharge summary Author Billy Kothari [facility] Note Date/Time February 19, 2025 12:0 5am [facility] Medical Records Department [address] [place] [address] Emergency Department Summary 02/18/25 MR#: [id number] Acct: [id number] Name: OLGA DONADLSON Rep #:[id number] : 1945 80 From: Billy Kothari MD PCP: Dr. Ramone Smiley MD Status:REG ER Location: ED HPI History of Present Illness Chief Complaint: Shortness of Breath Narrative Narrative: 80-year-old female past medical history of COPD, wears 2 to 3 L of oxygen, presents from [facility] with increasing shortness of breath. Sherelates history that she was admitted to the hospital for breathing difficulty and was released on Thursday. This is approximately 5 days ago. She is only at the [facility] temporarily. She states she does not see a design painter. She has been taking prednisone since discharge. She presents today with increasing shortness of breath and occasional cough. No fevers or chills. [facility] Medical History History of diabetes mellitus [...] mg tablet 25 mg PO BID BLOOD AK ESSURE 08/16/18 01/15/25 History pantoprazole 40 mg [...] 20 unit subcut BID marco a betes 05/10/25 05/18/25 History mL) subcutaneous pen (Lantus Solostar U-100 [...] hence, she was admitted then placed in [facility]. Says that she had history of [...] improved when compared to prior in the 4000's as well. Chest x-ray in 1 view [...] on steroids and nebulizer treatments at the [facility]. She is motivated for discharge. Disposition [...] 78.7 H Lymph % (Auto) 12.5 L Boundary % (Auto) 6.7 Eos % (Auto) 1.0 [...] evaluation. No obvious acute finding. Reading Location: [facility] Discharge Plan Triage Chief Complaint: Shortness [...] wear your nasal cannula oxygen. Print Language: South African Disposition Disposition: Home, Self Care What to do if you have Problems For any increased pain, shortness of breath, bleeding, nausea or vomiting, chestpain, or any unexpected problems, contact your Primary Care Provider. Call [facility] ([phone]) or report to the closest Emergency Room. Call 911 if necessary. 02/19/25 0005 <Electronically signed by Billy Kothari MD> Cosigner Signature (if applicable): CC: Dr. Ramone Smiley MD ~ Signed [facility] Work Phone: [phone]) 777-640006-20-2025 Discharge summary Author Heydi Amaya [facility] Note Date/Time February 17, 2025 5:15 pm [facility] Medical Records Department [address] [place] [address] Discharge Summary 02/17/25 1713 MR#: [id number] Acct: [id number] Name: ANIKAOLGA Rep #:[id number] : 1945 80 From: Heydi Amaya MD PCP: Dr. Ramone Smiley MD Status:ADM TED [facility] Providers Date of Admission: 02/15/25 Date of [...] GERD, COPD, hypertension, diabetes who presented to [facility] ED 02/16/2025 with shortness of breath and [...] (Auto) 86.1 H, Lymph % (Auto) 7.8L, Boundary % (Auto) 5.0, Eos % (Auto) 0.1, Baso % (Auto) 0.1, Absolute Neuts (auto)6.4, Absolute Lymphs (auto) 0.58 L, Nucleated RBC % 0, Sodium 134, Potassium 5.3H, Chloride 98, Carbon Dioxide 23.5, Anion Gap 12, BUN 27 H, Creatinine 1.15, Estim Creat Clear Calc 37.29 L, Est GFR (MDRD) Non-Af 48 L, BUN/Creatinine Ratio 23.0 H, Glucose 426 H, Calcium 10.3 06/20/25 07:21: POC Glucose 488 H* 02/17/25 11:03: [...] Facility Facility Charges/Coding Visit Charges Inpatient E&M: 00576 Disch Hosp 02/17/251714 <Electronically signed by Heydi Amaya MD> Cosigner Signature (if applicable): CC: Dr. Ramone Smiley MD; Dr. Heydi Amaya MD~ Signed [facility] Work Phone: [phone]) [phone] Discharge summary Author Heydi Amaya [facility] Note Date/Time February 17, 2025 5:13 pm [facility] Medical Records Department [address] [place] [address] Transfer to [facility] Care MR#: [id number] Acct: [id number] Name: OLGA DONALDSON Rep #:[id number] : 1945 80 From: Heydi Amaya MD PCP: Dr. Ramone Smiley MD Status:ADM TED Certification of patient admission REQUIRED AT TIME OF ADMISSION. I CERTIFY THAT POST-HOSPITAL ECF SERVICES ARE REQUIRED TO BE GIVEN ON AN IN-PATIENT BASIS BECAUSE OF THE ABOVE NAMED PATIENT'S NEED FOR RETIREMENT CARE ON A CONTINUING BASIS FOR THE CONDITION(S) FOR WHICH HE/SHE WAS RECEIVING IN-PATIENT HOSPITAL SERVICES PRIOR TO HIS/HER TRANSFER TO THE [facility]. 02/17/25 1713<Electronically signed by Heydi Amaya MD> [...] GERD, COPD, hypertension, diabetes who presented to [facility] ED 02/16/2025 with shortness of breath and [...] Bartlett DO; Dr. Ramone Smiley MD ~ [facility] Work Phone: [phone]) 134-740906-20-2025 [facility]06-19-2025 Progress note Author Heydi Amaya [facility] Note Date/Time February 16, 2025 4:45 pm [facility] Medical Records Department [address] [place] [address] Progress Note - Hospitalist 02/16/25 0829 MR#: [id number] Acct: [id number] Name: OLGA DONALDSON Rep #:[id number] : 1945 80 From: Heydi Amaya MD PCP: Dr. Ramone Smiley MD Status:ADM TED Location: UT3 EB756-3 Reason for Visit Reason for Visit: Diagnoses [...] 82.5 H, Lymph % (Auto) 10.9 L, Boundary % (Auto) 4.8, Eos % (Auto) 0.7, [...] evidence of acute cardiopulmonary process. Reading Location: [facility] Physical Exam Narrative General: Alert, oriented, no [...] GERD, COPD, hypertension, diabetes who presented to [facility] ED 02/16/2025 with shortness of breath and [...] Amaya MD Charges/Coding Visit Charges Inpatient E&M: 50894 Subs Hosp L2 02/16/25 1645 <Electronically signed by Heydi Amaya MD> Cosigner Signature (if applicable): CC: ~ Signed [facility] Work Phone: [phone]) [phone] Discharge summary Author Robert Allison [facility] Note Date/Time February 15, 2025 3:14 pm [facility] Medical Records Department [address] [place] [address] Emergency Department Summary 02/15/25 MR#: [id number] Acct: [id number] Name: OLGA DONALDSON Rep #:[id number] : 1945 80 From: Robert Allison DO PCP: Dr. Ramone Smiley MD Status:ADM TED Location: MS3 GC111-3 HPI History of Present Illness Chief Complaint: [...] cough. Denies fever or chest pain. [facility] Medical History (Updated 02/15/25 @ 13:15 [...] mg tablet 25 mg PO BID BLOOD AK ESSURE 08/16/18 01/15/25 History pantoprazole 40 mg [...] History (Updated 02/14/25 @ 00:01 by Background Dadeion) History of left hip hemiarthroplasty S/P fine [...] and faint expiratory wheezes. Mild tachypnea. No insurance underwriter sales muscles or retractions Effort and Inspection: Negative [...] chronically has this type of elevation. BT SUPERVISOR CEREAL also elevated 4408 however this is significantly [...] They are requesting placement to rehab facility. horse stud worker saw patient and asked that we [...] 82.5 H Lymph % (Auto) 10.9 L Boundary % (Auto) 4.8 Eos % (Auto) 0.7 [...] acute cardiopulmonary process. Reading Location: [facility] 1 view chest x-ray obtained interpreted myself [...] Care Provider] - 3-5 Days Print Language: South African Disposition Disposition: Acute Care Hospital [facility] What to do if you have Problems For any increased pain, shortness of breath, bleeding, nausea or vomiting, chestpain, or any unexpected problems, contact your Primary Care Provider. Call [facility] ([phone]) or report to the closest Emergency Room. Call 911 if necessary. 02/15/25 2687 <Electronically signed by Remus Ungur DO> Cosigner Signature (if applicable): CC: Dr. Ramone Smiley MD ~ Signed [facility] Work Phone: [phone]) 208-109406-18-2025 History and physical note Author Nestor Bartlett [facility] Note Date/Time February 15, 2025 2:57 pm [facility] Medical Records Department [address] [place] [address] H&P Exam - Hospitalist 02/15/25 1401 MR#: [id number] Acct: [id number] Name: OLGA DONALDSON Rep #:[id number] : 1945 80 From: Nestor roman DO PCP: Dr. Ramone Smiley MD Status:ADM TED Location: [facility] KL649-5 HPI - General General Date of Admission: 02/15/25 Date of Service: 02/15/25 Chief Complaint: Shortness of breath, acute on chronic debility HPI Narrative OLGA DONALDSON, is a 80 F who presented to [facility] ED on 02/15/2025 with shortness of breath [...] currently. Will be admitted for further management. [facility] Medical History (Updated 02/15/25 @ 13:[address] Robert Allison, DO) History of diabetes mellitus COPD exacerbation [...] mg tablet 25 mg PO BID BLOOD AK ESSURE 08/16/18 01/15/25 History pantoprazole 40 mg [...] 82.5 H, Lymph % (Auto) 10.9 L, Boundary % (Auto) 4.8, Eos % (Auto) 0.7, [...] acute cardiopulmonary process. Reading Location: [facility] Assessment & Plan Assessment/Plan (1) Generalized weakness: PLAN: Plan Patient is an 80-year-old female who presented [facility] ED on 02/15/2025 with recurrent shortness of breath and acute on chronic debility. 1. Acute on chronic debility ? Admit under observation status to [facility]. PT/OT/case management consulted. Multiple recent hospitalizations for [...] 75 minutes. Charges/Coding Visit Charges Inpatient E&M: 58165 Init Hosp L3 02/15/25 7928 <Electronically signed by Nestor Bartlett DO> Cosigner Signature (if applicable): CC: Dr. Nestor Bartlett DO; Dr. Ramone Smiley MD~ Signed [facility] Work Phone: [phone]) [phone] Radiology Diagnostic study [facility]06-16-2025 Discharge summary Author Lucio Borden [facility] Note Date/Time February 13, 2025 2:22 pm [facility] Medical Records Department [address] [place] [address] Instructions for Home/Discharge Instructions 02/13/25 1415 MR#: [id number] Acct: [id number] Name: OLGA DONALDSON Rep #:[id number] : 1945 80 From: Lucio Borden DO [...] CC: Dr. Ramone Smiley MD ~ Signed [facility] Work Phone: [phone]) 350-867906-16-2025 [facility]06-15-2025 Progress note Author Lucio Borden [facility] Note Date/Time February 12, 2025 11:2 5am [facility] Medical Records Department [address] [place] [address] Progress Note - Hospitalist 02/12/25 1123 MR#: [id number] Acct: [id number] Name: OLGA DONALDSON Rep #:[id number] : 1945 80 From: Lucio Borden DO PCP: Dr. Ramone Smiley MD Status:ADM IN Location: [place] 781633-1 Reason for Visit Reason for Visit: Diagnoses [...] 35- minutes Charges/Coding Visit Charges Inpatient E&M: 50705 Subs Hosp L2 02/12/25 1125 <Electronically signed by Lucio Borden DO> Cosigner Signature (if applicable): CC: ~ Signed [facility] Work Phone: [phone]) [phone] Progress note Author Lucio Borden [facility] Note Date/Time February 11, 2025 4:29 pm [facility] Medical Records Department [address] [place] [address] Progress Note - Hospitalist 02/11/25 1621 MR#: [id number] Acct: [id number] Name: OLGA DONALDSON Rep #:[id number] : 1945 80 From: Lucio Borden DO PCP: Dr. Ramone Smiley MD Status:ADM IN Location: [place] [address] Reason for Visit Reason for Visit: Diagnoses [...] 35- minutes Charges/Coding Visit Charges Inpatient E&M: 23066 Subs Hosp L2 02/11/25 1629 <Electronically signed by Lucio Borden DO> Cosigner Signature (if applicable): CC: ~ Signed [facility] Work Phone: [phone]) 485-773606-13-2025 Progress note Author [facility] Note Date/Time February 10, 2025 5:29 pm [facility] Medical Records Department [address] [place] [address] Progress Note - Hospitalist 02/10/25 1720 MR#: [id number] Acct: [id number] Name: OLGA DONALDSON Rep #:[id number] : 1945 80 From: Lucio Borden DO PCP: Dr. Ramone Smiley MD Status:ADM IN [facility] Reason for Visit Reason for Visit: Diagnoses [...] 35- minutes Charges/Coding Visit Charges Inpatient E&M: 56589 Subs Hosp L2 02/10/25 1729 <Electronically signed by Lucio Borden DO> Cosigner Signature (if applicable): CC: ~ Signed [facility] Work Phone: 1(702) 161-104606-12-2025 History and physical note Author Tono Gomez [facility] Note Date/Time February 09, 2025 7:17 pm [facility] Medical Records Department [address] [place] [address] H&P Exam - Hospitalist 02/09/25 1525 MR#: [id number] Acct: [id number] Name: OLGA DONALDSON Rep #:[id number] : 1945 80 From: Tono BHATTI PCP: Dr. Ramone Smiley MD Status:ADM [facility] HPI - General General Date of Service: [...] tightness, no dizziness or lightheadedness, no palpitations. [facility] Medical History COPD with exacerbation Anemia [...] mg tablet 25 mg PO BID BLOOD AK ESSURE 08/16/18 01/15/25 History pantoprazole 40 mg [...] (Auto) 86.9 H, Lymph % (Auto) 7.3L, Boundary % (Auto) 4.5, Eos % (Auto) 0.1, [...] atelectasis. Reading Location: [facility] Assessment & Plan Assessment/Plan (1) COPD exacerbation: [...] Gomez PA-C under the supervision of Doctor Micih. (2) Hypoxia: 02/09/25 1552 <Electronically signed by [...] assessment and findings. Visit Charges Inpatient E&M: 50299 Init Hosp L2 02/09/251916<Electronically signed by Lucio Tereletsky DO> Cosigner Signature (if applicable): cc: DAVY Dykes; Dr. Ramone Smiley MD; Dr. Lucio Borden, DO ~* Signed [facility] Work Phone: [phone] Discharge summary Author Jeremiah Corrales [facility] Note Date/Time February 09, 2025 2:57 pm [facility] Medical Records Department [address] [place] [address] Emergency Department Summary 02/09/25 MR#: [id number] Acct: [id number] Name: OLGA DONALDSON Rep #:[id number] : 1945 80 From: Jeremiah Corrales MD [...] Prior similar symptoms: Yes Recent Illness/Hospitalization: Yes PFSH PFSH Medical History COPD with exacerbation Anemia History [...] mg tablet 25 mg PO BID BLOOD AK ESSURE 08/16/18 01/15/25 History pantoprazole 40 mg [...] 01/15/25 01/15/25 History 0.005 % eye drops ([place]) psyllium husk 0.4 gram capsule 0.4 g [...] 86.9 H Lymph % (Auto) 7.3 L Boundary % (Auto) 4.5 Eos % (Auto) 0.1 [...] degree of bibasilar linear atelectasis. Reading Location: [facility] Chest x-ray, 2 views, interpreted by myself [...] exacerbation, History of diabetes mellitus Disposition Disposition: [facility] What to do if you have Problems For any increased pain, shortness of breath, bleeding, nausea or vomiting, chestpain, or any unexpected problems, contact your Primary Care Provider. Call [facility] ([phone]) or report to the closest Emergency Room. Call 911 if necessary. 02/09/25 5627 <Electronically signed by Jeremiah Corrales MD> Cosign Signature (if applicable): CC: Dr. Ramone Smiley MD ~ Signed [facility] Work Phone: 1(959) 438-816906-12-2025 Radiology Diagnostic study [facility]06-09-2025 Discharge summary Author Lucio [facility] Note Date/Time February 06, 2025 2:01p [facility] Medical Records Department [address] [place] [address] Instructions for Home/Discharge Instructions 02/06/25 1351 MR#: [id number] Acct: [id number] Name: OLGA DONALDSON Rep #:[id number] : 1945 80 From: Lucio Borden DO [...] CC: Dr. Ramone Smiley MD ~ Signed [facility] Work Phone: [phone]) 530-947406-09-2025 [facility]06-08-2025 Progress note Author [facility] Note Date/Time February 05, 2025 2:48p m [facility] Medical Records Department [address] [place] [address] Progress Note - Hospitalist 02/05/25 1442 MR#: [id number] Acct: [id number] Name: OLGA DONALDSON Rep #:[id number] : 1945 80 From: Lucio Borden DO PCP: Dr. Ramone Smiley MD Status:ADM IN Location: [place] [address] Subjective Subjective Patient was seen and examined today, she states she feels much better today. Patient is currently on room air. Objective Data Objective Data Vital Signs: Vital Signs Temp Pulse Resp BP Pulse Ox O2 Del Method O2 Flow Rate 97.3 F L 88 14 121/56 H 100 Room Air 3 02/05/25 10:02/05/25 10:16 02/05/25 10:02/05/25 10:02/05/25 10:02/05/25 10:02/05/25 07:33 Oxygen Flow Rate [...] 35 minutes Charges/Coding Visit Charges Inpatient E&M: 44446 Subs Hosp L2 02/05/25 1448 <Electronically signed by Lucio Borden DO> Cosigner Signature (if applicable): CC: ~ Signed [facility] Work Phone: [phone] Discharge summary Author Aj Holley [facility] Note Date/Time February 04, 2025 10:27 am [facility] Medical Records Department [address] [place] [address] Emergency Department Summary 02/04/25 MR#: [id number] Acct: [id number] Name: OLGA DONALDSON Rep #:[id number] : 1945 80 From: Aj Holley MD [...] the couch, and has no pain. [facility] Medical History Elevated troponin Coronary artery [...] mg tablet 25 mg PO BID BLOOD AK ESSURE 08/16/18 01/15/25 History pantoprazole 40 mg [...] 75.4 H Lymph % (Auto) 15.7 L Boundary % (Auto) 6.6 Eos % (Auto) 1.7 [...] MD [Primary Care Provider] - Print Language: South African What to do if you have Problems For any increased pain, shortness of breath, bleeding, nausea or vomiting, chestpain, or any unexpected problems, contact your Primary Care Provider. Call [facility] ([phone]) or report to the closest Emergency Room. [...] cc: Dr. Ramone Smiley MD ~* Signed [facility] Work Phone: [phone]) [phone] Radiology Diagnostic study [facility]06-07-2025 Radiology Diagnostic study [facility]05-29-2025 Radiology Diagnostic study [facility] 01-24-2025 [facility]05-26-2025 Progress note Author Becca Silverman [facility] Note Date/Time January 23, 2025 3:40p m [facility] Medical Records Department [address] [place] [address] Progress Note - Cardiology 01/23/25 1528 MR#: [id number] Acct: [id number] Name: OLGA DONALDSON Rep #:[id number] : 1945 80 From: Becca Silverman MD PCP: Dr. Ramone Smiley MD Status:ADM IN Location: [place] [address] Subjective Subjective Seen and evaluated at bedside [...] (Auto) 90.8 H, Lymph % (Auto) 6.2L, Boundary % (Auto) 2.7, Eos % (Auto) 0.0, [...] (Auto)90.8 H, Lymph % (Auto) 6.2 L, Boundary % (Auto) 2.7, Eos % (Auto) 0.0, [...] up an appointment to be seen by tape machine tailer as an outpatient and discussed further plan possible Lexiscan sestamibi and based on results of Lexiscan sestamibi to consider further evaluation. To minimize risk of contrast-induced nephropathy. Becca Silverman MD,[facility] 01/23/25 4401 <Electronically signed by Becca Silverman MD> Cosigner Signature (if applicable): CC: ~ Signed [facility] Work Phone: [phone]) 330-475205-26-2025 Progress note Author Melba Hartmann [facility] Note Date/Time January 23, 2025 2:43p m [facility] Medical Records Department [address] [place] [address] Progress Note 01/23/25 1037 MR#: [id number] Acct: [id number] Name: OLGA DONALDSON Rep #:[id number] : 1945 80 From: Melba Hartmann MD PCP: Dr. Ramone Smiley MD Status:ADM IN Location: [place] [address] Subjective Subjective Patient seen and examined. She [...] (Auto) 90.8 H, Lymph % (Auto) 6.2L, Boundary % (Auto) 2.7, Eos % (Auto) 0.0, [...] prophylaxis: Heparin Charges/Coding Visit Charges Inpatient E&M: 15274 Subs Hosp L2 01/23/25 1443 <Electronically signed by Melba Hartmann MD> Melba Hartmann MD Cosigner Signature (if applicable): CC: ~ Signed [facility] Work Phone: [phone]) 827-277105-25-2025 Progress note Author [facility] Note Date/Time January 22, 2025 2:00p m [facility] Medical Records Department [address] [place] [address] Progress Note 01/22/25 0949 MR#: [id number] Acct: [id number] Name: OLGA DONALDSON Rep #:[id number] : 1945 80 From: Melba Hartmann MD PCP: Dr. Ramone Smiley MD Status:ADM IN Location: [place] [id number]- [id number] Subjective Subjective Patient seen and examined [...] 91.4 H, Lymph % (Auto) 5.7 L, Boundary % (Auto) 2.4, Eos % (Auto) 0.0, [...] to PCU Charges/Coding Visit Charges Inpatient E&M: 18762 Subs Hosp L2 01/22/25 1242 <Electronically signed by Melba Hartmann MD> Melba Hartmann MD Cosigner Signature (if applicable): CC: ~ Signed ADDENDUM by Dr. Melba Hartmann MD on 01/22/25 at 1400 Addendum 1:30pm Patient's son Ursula Lees Jr called on the phone ([phone]) and updated about his mother's condition. 01/22/25 1400 <Electronically signed by Melba vivas MD> Date _ Melba Hartmann MD Cosigner Signature (if applicable): Date cc: ~* Signed [facility] Work Phone: 1(485) 411-448305-24-2025 Progress note Author Melba [facility] Note Date/Time January 21, 2025 2:07p [facility] Medical Records Department [address] [place] [address] Progress Note 01/21/25 1039 MR#: [id number] Acct: [id number] Name: OLGA DONALDSON Rep #:[id number] : 1945 80 From: Melba Hartmann MD [...] 88.4 H, Lymph % (Auto) 7.7 L, Boundary % (Auto) 3.5, Eos % (Auto) 0.0, [...] H, Calcium 9.8, [place] [address] H 01/21/25 08:06: POC Glucose 202 H [...] noted. Cardiomegaly. No pericardial effusion. Reading Location: [facility] Echocardiogram 01/20/25 04:12 Interpretation Summary Mildly [...] Chest X-Ray 01/21/25 05:55 IMPRESSION: New appearing itkd-kj-mxijwwbh ill-defined perihilar opacity at the left upper lobe may represent developing infiltrate or less likely an asymmetric edema pattern. Bilateral medial retrocardiac lower lobe streaky opacities not significantly changed. No pleural effusions identified. Reading Location: [facility] Physical Exam Const alert, oriented x3, [...] prophylaxis: Heparin Charges/Coding Visit Charges Inpatient E&M: 67418 Subs Hosp L2 01/21/25 1407 <Electronically signed by Melba Hartmann MD> Melba Hartmann MD Cosigner Signature (if applicable): CC: ~ Signed [facility] Work Phone: [phone]) 573-226005-24-2025 Radiology Diagnostic study [facility]05-23-2025 Progress note Author Lucio Borden [facility] Note Date/Time January 20, 2025 4:58p m [facility] Medical Records Department [address] [place] [address] Progress Note - Hospitalist 01/20/25 1657 MR#: [id number] Acct: [id number] Name: OLGA DONALDSON Rep #:[id number] : 1945 80 From: Lucio Borden DO PCP: Dr. Ramone Smiley MD Status:ADM IN Location: [facility] [id number]- 1 Hospitalist Note Patient continues to have respiratory [...] Cosigner Signature (if applicable): CC: ~ Signed [facility] Work Phone: [phone]) [phone] Progress note Author [facility]io [facility] Note Date/Time January 20, 2025 11:20 am [facility] Medical Records Department [address] [place] [address] Progress Note - Hospitalist 01/20/25 1119 MR#: [id number] Acct: [id number] Name: OLGA DONALDSON Rep #:[id number] : 1945 80 From: Lucio Borden DO PCP: Dr. Ramone Smiley MD Status:ADM IN Location: [place] [address] Hospitalist Note Patient was seen and examined today, made the decision to change the patient to Airvo, patient was admitted for suspected right lower lobe pneumonia and exacerbation of COPD, she remained on aerosol treatments, IV Solu-Medrol, and IVlevofloxacin. 01/20/25 1120 <Electronically signed by Lucio Borden DO> Cosigner Signature (if applicable): CC: ~ Signed [facility] Work Phone: [phone] History and physical note Author Sandeep Marie [facility] Note Date/Time January 20, 2025 6:06a m [facility] Medical Records Department [address] [place] [address] H&P Exam - Hospitalist 01/20/25 0241 MR#: [id number] Acct: [id number] Name: OLGA DONALDSON Rep #:[id number] : 1945 80 From: Sandeep Dukes DO PCP: Dr. Ramone Smiley MD Status:ADM IN Location: [place] [address] HPI - General General Date of Admission: [...] stenosis of lumbar region who presents to [facility] ER complaining of shortness of breath. Ms. [...] is expected to extend beyond 2 midnights. [facility] Medical History Fracture of hip, left, [...] mg tablet 25 mg PO BID BLOOD AK ESSURE 08/16/18 01/15/25 History pantoprazole 40 mg [...] Neut % (Auto) 58.4, Lymph % (Auto) 32.0,Boundary % (Auto) 7.7, Eos % (Auto) 0.8, [...] Clarity Clear, Urine pH 6.0, Ur Specific [place] 1.010, Urine Protein 100 H, Urine Glucose [...] noted. Cardiomegaly. No pericardial effusion. Reading Location: [id number] Assessment & Plan Assessment/Plan (1) Pneumonia: QUALIFIERS: [...] twice daily. Give acetaminophen as needed for cgig-nv-hinspktd (level 1-5/10) pain or fever. Give morphine [...] responsive hypotension Charges/Coding Visit Charges Inpatient E&M: 21430 Init Hosp L3 01/20/25 0606 <Electronically signed by Sandeep Carlton DO> Cosigner Signature (if applicable): CC: Dr. Sandeep Carlton DO; Dr. Ramone Smiley MD~ Signed [facility] Work Phone: [phone]) [phone] Evaluation note* Diagnosis Onset Date Resolution Status [...] December 3:32am Coronary artery disease chronic M 2024 3:32am Hypertension chronic January 20 3:32am [facility] Work Phone: [phone] Evaluation note* Diagnosis Onset Date Resolution Status [...] diabetes mellitus chronic February 04, 2025 10:52am [facility] Work Phone: [phone] Evaluation note* Diagnosis Onset Date Resolution Status [...] diabetes mellitus chronic February 04, 2025 10:52am [facility] Work Phone: [phone] Evaluation note* Diagnosis Onset Date Resolution Status [...] failure remov ed February 09, 2025 3:00pm [facility] Work Phone: [phone] Evaluation note* Diagnosis Onset Date Resolution Status [...] 20, 2025 3:32am Obesity (BMI 30.0-34.9) inactive [facility] 2024 3:32am Aortic stenosis acute January 31, 2025 1:42pm CHF (congestive heart failure) acute January 31, 2025 1:42pm Coronary artery disease acute 2024 1:42pm Hyperlipidemia chronic January 31, 2025 1:42pm Hypertension chronic January 31 1:42pm [facility] Work Phone: [phone] Evaluation note* Diagnosis Onset Date Resolution Status Admit Date Acute hypoxemic respiratory failure resolved January 20, 2025 3 :32am Acute hypoxic on chronic hypercapnic respiratory failure resolved January 20, 2025 3:32am CHF exacerbation resolved December 3:32am COPD exacerbation resolved December 3:32am Leukocytosis resolved January 20 3:32am Pneumonia resolved January 20, 2025 3:32am Aortic stenosis inactive January 20, 2025 3:32am Coronary artery disease inactive [facility] 2024 3:32am Elevated troponin inactive December 3:32am Hypertension inactive January 20 3:32am Lactic acidosis inactive January 20, 2025 3:32am Obesity (BMI 30.0-34.9) inactive [facility] 2024 3:32am Aortic stenosis inactive January 31, 2025 1:42pm CHF (congestive heart failure) inact chandan January 31, 2025 1:42pm Coronary artery disease inactive J une 2024 1:42pm Hyperlipidemia inactive January 31, 2025 [...] failure remov ed February 09, 2025 3:00pm [facility] Work Phone: [phone] Evaluation note* Diagnosis Onset Date Resolution Status [...] 2025 3:32am Coronary artery disease inactive M 2024 3:32am Elevated troponin inactive December 3:32am Hypertension inactive January 20 3:32am Lactic acidosis inactive January 20, 2025 3:32am Obesity (BMI 30.0-34.9) inactive M 2024 3:32am Aortic stenosis inactive January 31, [...] Generalized weakness inactive February 15, 2025 2:01pm [facility] Work Phone: [phone] Evaluation note* Diagnosis Onset Date Resolution Status Admit Date Acute hypoxemic respiratory failure resolved January 20, 2025 3 :32am Acute hypoxic on chronic hypercapnic respiratory failure resolved January 20, 2025 3:32am CHF exacerbation resolved December 3:32am COPD exacerbation resolved December 3:32am Leukocytosis resolved January 20 3:32am Pneumonia resolved January 20, 2025 3:32am Aortic stenosis inactive January 20, 2025 3:32am Coronary artery disease inactive 2024 3:32am Elevated troponin inactive December 3:32am Hypertension inactive January 20 3:32am Lactic acidosis inactive January 20, 2025 3:32am Obesity (BMI 30.0-34.9) inactive M 2024 3:32am Aortic stenosis inactive January 31, [...] Generalized weakness inactive February 15, 2025 2:01pm [facility] Work Phone: [phone] Evaluation note* Diagnosis Onset Date Resolution Status Admit Date Acute hypoxemic respiratory failure resolved January 20, 2025 3 :32am Acute hypoxic on chronic hypercapnic respiratory failure resolved January 20, 2025 3:32am CHF exacerbation resolved December 3:32am COPD exacerbation resolved December 3:32am Leukocytosis resolved January 20 3:32am Pneumonia resolved January 20, 2025 3:32am Aortic stenosis inactive January 20, 2025 3:32am Coronary artery disease inactive 2024 3:32am Elevated troponin inactive December 3:32am Hypertension inactive January 20 3:32am Lactic acidosis inactive January 20, 2025 3:32am Obesity (BMI 30.0-34.9) inactive 2024 3:32am Aortic stenosis inactive January 31, [...] Back muscle spasm acute March 212024 11:03pm [facility] Work Phone: [phone] Evaluation note* Diagnosis Onset Date Resolution Status Admit Date Acute hypoxemic respiratory failure resolved January 20, 2025 3 :32am Acute hypoxic on chronic hypercapnic respiratory failure resolved January 20, 2025 3:32am CHF exacerbation resolved December 3:32am COPD exacerbation resolved December 3:32am Leukocytosis resolved January 20 3:32am Pneumonia resolved January 20, 2025 3:32am Aortic stenosis inactive January 20, 2025 3:32am Coronary artery disease inactive [facility] 2024 3:32am Elevated troponin inactive December 3:32am Hypertension inactive January 20 3:32am Lactic acidosis inactive January 20, 2025 3:32am Obesity (BMI 30.0-34.9) inactive [facility] 2024 3:32am Aortic stenosis inactive January 31, [...] 11:03pm COPD exacerbation chronic March 212024 11:03pm [facility] Work Phone: [phone]) 464-603105-23-2025 Evaluation note* Diagnosis Onset Date Resolution Status [...] failure remov ed February 09, 2025 3:00pm Dyspnea resolved February 15 2:01pm Debility inactive February 15 2:01pm Generalized weakness inactive February 15, 2025 2:01pm COPD exacerbation chronic March 212024 11:03pm Acute UTI inactive March 21 11:03pm Back muscle spasm inactive March 212024 11:03pm Debility inactive March 21 11:03pm Acute cystitis with hematuria acute April 02, 2025 4:28am Acute exacerbation of chroni c heart failure acute April 02, 2025 4:28am Acute hypoxic respiratory failure acute April 02, 2025 4:28am Elevated d-dimer acute April 022024 4:28am Neurogenic bladder acute [place] 3rd, 2025 4:28am Obesity (BMI 30.0-34.9) acute A ug2024 4:28am Pneumonia acute April 02 4:28am COPD exacerbation chronic April 02, 2025 4:28am [facility] Work Phone: [phone] 310-353405-23-2025 Discharge summary Author Jeevan Yoder [facility] Note Date/Time January 20, 2025 2:43a m [facility] Medical Records Department [address] [place] [address] Emergency Department Summary 01/20/25 MR#: [id number] Acct: [id number] Name: OLGA DONALDSON Rep #:[id number] : 1945 80 From: Jeevan Yoder DO [...] had progressive worsening shortness of breath. [facility] Medical History Fracture of hip, left, [...] mg tablet 25 mg PO BID BLOOD AK ESSURE 08/16/18 01/15/25 History pantoprazole 40 mg [...] % (Auto) 58.4 Lymph % (Auto) 32.0 Boundary % (Auto) 7.7 Eos % (Auto) 0.8 [...] Clarity Clear Urine pH 6.0 Ur Specific [place] 1.010 Urine Protein 100 H Urine Glucose [...] noted. Cardiomegaly. No pericardial effusion. Reading Location: [id number] Discharge Plan Triage Chief Complaint: Shortness of [...] MD [Primary Care Provider] - Print Language: South African What to do if you have Problems For any increased pain, shortness of breath, bleeding, nausea or vomiting, chestpain, or any unexpected problems, contact your Primary Care Provider. Call [facility] ([phone]) or report to the closest Emergency Room. Call 911 if necessary. 01/20/25 0236 <Electronically signed by Jeevan Yoder DO> Cosigner Signature (if applicable): CC: Dr. Ramone Smiley MD ~ Signed [facility] Work Phone: [phone]) [phone] Radiology Diagnostic study [facility]05-18-2025 Discharge summary [facility] Medical Records Department [address] [place] [address] Emergency Department Summary 01/15/25 MR#: [id number] Acct: [id number] Name: OLGA DONALDSON Rep #:[id number] : 1945 80 From: Jeevan Yoder DO [...] the antibiotic that was placed on. [facility] Medical History Fracture of hip, left, [...] mg tablet 25 mg PO BID BLOOD AK ESSURE 08/16/18 01/15/25 History pantoprazole 40 mg [...] follow commands and that she was at [facility] the year is 2024 Skin: Warm, [...] 72.7 H Lymph % (Auto) 18.1 L Boundary % (Auto) 6.9 Eos % (Auto) 1.6 [...] with mild congestion. Reading Location: [facility] Discharge Plan Triage Chief Complaint: Shortness of [...] with worsening symptoms or concerns. Print Language: South African Disposition Disposition: Home, Self Care What to do if you have Problems For any increased pain, shortness of breath, bleeding, nausea or vomiting, chestpain, or any unexpected problems, contact your Primary Care Provider. Call [facility] ([phone]) or report tothe closest Emergency Room. Call 911 if necessary. 01/15/25 1845 Cosigner Signature (if applicable): CC: Dr. Ramone Smiley MD ~ Signed [facility]05-18-2025 Radiology Diagnostic study note [facility] Imaging Services [address] [place], [place] [address] Chest PA and Lateral MR#: [id number] Acct: [id number] Name: OLGA DONALDSON Rep #: [id number] : 1945 F 80 From: Kary Suarez MD PCP: Dr. Ramone Smiley MD Status: REG ER Study:Chest PA and Lateral Date of Exam: 01/15/25 Exam# [id number] Ordering Dr: Yoly Yoder DO EXAM: XR Chest, 2 Views CLINICAL INDICATION: CHEST PAIN TECHNIQUE: Frontal and lateral views of the chest. COMPARISON: No relevant prior studies available. FINDINGS: LUNGS AND PLEURAL SPACES: See below. HEART: Cardiomegaly with mild congestion. MEDIASTINUM: Unremarkable. Normal mediastinal contour. BONES/JOINTS: Unremarkable. No acute fracture. RAD/Chest PA and Lateral IMPRESSION: Cardiomegaly with mild congestion. Reading Location: [facility] CC: Dr. Ramone Smiley MD; Dr. Jeevan Yoder DO ~ [employer] Installer: Signed [facility]05-18-2025 Discharge summary Author Jeevan Yoder [facility] Note Date/Time January 15, 2025 6:45p m [facility] Medical Records Department [address] [place] [address] Emergency Department Summary 01/15/25 MR#: [id number] Acct: [id number] Name: OLGA DONALDSON Rep #:[id number] : 1945 80 From: Jeevan Yoder DO [...] the antibiotic that was placed on. [facility] Medical History Fracture of hip, left, [...] mg tablet 25 mg PO BID BLOOD AK ESSURE 08/16/18 01/15/25 History pantoprazole 40 mg [...] 01/15/25 U nknown History subcutaneous pen injector (Baoro) Allergy/AdvReac Type Severity Reaction Status Date / [...] follow commands and that she was at [facility] the year is 2024 Skin: Warm, [...] 72.7 H Lymph % (Auto) 18.1 L Boundary % (Auto) 6.9 Eos % (Auto) 1.6 [...] IMPRESSION: Cardiomegaly with mild congestion. Reading Location: [facility] Discharge Plan Triage Chief Complaint: Shortness of [...] with worsening symptoms or concerns. Print Language: South African Disposition Disposition: Home, Self Care What to do if you have Problems For any increased pain, shortness of breath, bleeding, nausea or vomiting, chestpain, or any unexpected problems, contact your Primary Care Provider. Call [facility] ([phone]) or report to the closest Emergency Room. Call 911 if necessary. 01/15/25 2840 <Electronically signed by Jeevan Yoder DO> Cosigner Signature (if applicable): CC: Dr. Ramone Smiley MD ~ Signed [facility] Work Phone: 1(982) 602-693605-10-2025 Discharge summary [facility] Medical Records Department [address] [place] [address] Emergency Department Summary 01/07/25 MR#: [id number] Acct: [id number] Name: OLGA DONALDSON Rep #:[id number] : 1945 80 From: Ethan Casanova PCP: [...] mg tablet 25 mg PO BID BLOOD AK ESSURE 08/16/18 08/12/23 History pantoprazole 40 mg [...] clinician: N/A This note was generated with [employer] dictation software. It may contain incorrectwords, spelling, [...] % (Auto) 58.0 Lymph % (Auto) 31.8 Boundary % (Auto) 7.6 Eos % (Auto) 1.9 [...] Cardiomegaly without overt failure. Reading Location: [facility] Discharge Plan Triage Chief Complaint: Shortness [...] steroids is tomorrow. This was sent to [facility]. Print Language: South African Disposition Disposition: Home, Self Care What to do if you have Problems For any increased pain, shortness of breath, bleeding, nausea or vomiting, chestpain, or any unexpected problems, contact your Primary Care Provider. Call [facility] ([phone]) or report tothe closest Emergency Room. Call 911 if necessary. 01/07/25 1700 Cosigner Signature (if applicable): CC: Dr. Ramone Smiley MD ~ Signed [facility]05-10-2025 Radiology Diagnostic study note [facility] Imaging Services [address] [place] [address] Chest PA and Lateral MR#: [id number] Acct: [id number] Name: OLGA DONALDSON Rep #: [id number] : 1945 F 80 From: Kary Suarez MD PCP: Dr. Ramone Smiley MD Status: PRE ER Study:Chest PA and Lateral Date of Exam: 01/07/25 Exam# [id number] Ordering Dr: Ethan Suarez DO EXAM: XR Chest, 2 Views CLINICAL INDICATION: COUGH TECHNIQUE: Frontal and lateral views of the chest. COMPARISON: No relevant prior studies available. FINDINGS: LUNGS AND PLEURAL SPACES: Unremarkable. No consolidation. No pneumothorax. HEART: Cardiomegaly without overt failure. MEDIASTINUM: Unremarkable. Normal mediastinal contour. BONES/JOINTS: Unremarkable. No acute fracture. RAD/Chest PA and Lateral IMPRESSION: Cardiomegaly without overt failure. Reading Location: [facility] CC: Dr. Ramone Smiley MD; Dr. Ethan Suarez DO ~ [employer] Installer: Signed [facility]05-10-2025 Discharge summary Author Ethan Suarez [facility] Note Date/Time January 07, 2025 5:00p m [facility] Medical Records Department [address] [place] [address] Emergency Department Summary 01/07/25 MR#: [id number] Acct: [id number] Name: OLGA DONALDSON Rep #:[id number] : 1945 80 From: Ethan Casanova PCP: [...] 81 mg PO DAILY [facility] 01/21/16 08/12/23 History magnesium oxide 400 mg (241.3 mg 400 mg PO BID SUPPLEM ENT 08/16/18 08/12/23 History magnesium) tablet metoprolol tartrate 25 mg tablet 25 mg PO BID BLOOD AK ESSURE 08/16/18 08/12/23 History pantoprazole 40 mg [...] chest x-ray. Check nasal swab. will reevaluate. 161: Chest x-ray negative. White count 9.1 hemoglobin [...] clinician: N/A This note was generated with [employer] dictation software. It may contain incorrectwords, spelling, [...] % (Auto) 58.0 Lymph % (Auto) 31.8 Boundary % (Auto) 7.6 Eos % (Auto) 1.9 [...] without overt failure. Reading Location: [facility] Discharge Plan Triage Chief Complaint: Shortness of [...] steroids is tomorrow. This was sent to [facility]. Print Language: South African Disposition Disposition: Home, Self Care What to do if you have Problems For any increased pain, shortness of breath, bleeding, nausea or vomiting, chestpain, or any unexpected problems, contact your Primary Care Provider. Call [facility] ([phone]) or report to the closest Emergency Room. Call 911 if necessary. 01/07/25 1700 <Electronically signed by Ethan Casanova> Cosigner Signature (if applicable): CC: Dr. Ramone Smiley MD ~ Signed [facility] Work Phone: 1(397) 253-829405-01-2024 Progress note Author Sunnycourtney Bell [facility] December 30, 2023 12:34pm Note Date/Time December 30, 2023 12:35p [facility] Medical Records Department [address] [place] [address] Progress Note - Hospitalist 12/30/23 1228 MR#: [id number] Acct: [id number] Name: OLGA DONALDSON Rep #:[id number] : 1945 78 From: Sunny Blue PCP: Dr. Ramone Smiley MD Status:ADM IN [facility] Reason for Visit Reason for Visit: Diagnoses [...] Intake Total 1732.50 / 1732.50 2003.75 / 2003.75 700 / 700 Output Total 1850 / [...] % (Auto) 63.9, Lymph % (Auto) 25.3, Boundary % (Auto) 8.7, Eos % (Auto) 1.4, [...] Patient is a 78-year-old female who presented [facility] ED on 12/27/2023 with left hip pain after a fall at home. She got up from the couch toself catheter, got her walker turned and then lost balance and fell on her left hip. 1. Acute debility due to left impacted transcervical femoral neck fracture. ? Admit under inpatient status to [facility]. Orthopedics consulted. N.p.o. at midnight. PT/OT/case management [...] the phone who lives in [facility]. Patient is clinically doing well. Currently has [...] disposition: TBD Charges/Coding Visit Charges Inpatient E&M: 76117 Subs Hosp L2 12/30/23 1234 <Electronically signed by Sunny Bell MD> Cosigner Signature (if applicable): CC: ~ Signed [facility] Work Phone: 1(411) 354-236604-30-2024 Progress note Author Sunny Bell [facility] December 29, 2023 12:47pm Note Date/Time December 29, 2023 9:3 0am [facility] Medical Records Department [address] [place] [address] Progress Note - Hospitalist 12/29/23928 MR#: [id number] Acct: [id number] Name: OLGA DONALDSON Rep #:[id number] : 1945 78 From: Sunny Blue PCP: Dr. Ramone Smiley MD Status:ADM IN [facility] Reason for Visit Reason for Visit: Diagnoses [...] (Auto) 81.1 H, Lymph %(Auto) 9.5 L, Boundary % (Auto) 8.5, Eos % (Auto) 0.1, [...] Patient is a 78-year-old female who presented [facility] ED on 12/27/2023 with left hip pain after a fall at home. She got up from the couch toself catheter, got her walker turned and then lost balance and fell on her left hip. 1. Acute debility due to left impacted transcervical femoral neck fracture. ? Admit under inpatient status to [facility]. Orthopedics consulted. N.p.o. at midnight. PT/OT/case management [...] the phone who lives in [facility]. Patient is clinically doing well. Currently has [...] disposition: TBD Charges/Coding Visit Charges Inpatient E&M: 34959 Subs Hosp L2 12/29/23 3791 <Electronically signed by Sunny Bell MD> Cosigner Signature (if applicable): CC: ~ Signed [facility] Work Phone: 1(398) 851-600204-30-2024 Progress note Author Sj Patelkory [facility] December 29, 2023 11:56am Note Date/Time December 29, 2023 11: 56am [facility] Medical Records Department [address] [place] [address] Progress Note - Orthopedic 12/29/23 1152 MR#: [id number] Acct: [id number] Name: OLGA DONALDSON Rep #:[id number] : 1945 78 From: Sj BHATTI PA-C PCP: Dr. Ramone Smiley MD Status:ADM IN Location: UT3 VK132-0 Subjective Subjective Patient sitting at bedside watching [...] (Auto) 81.1 H, Lymph %(Auto) 9.5 L, Boundary % (Auto) 8.5, Eos % (Auto) 0.1, [...] Reading Location ID and State: [facility] / [place] , Service support , Hip X-Ray 12/28/23 [...] Cosigner Signature (if applicable): CC: ~ Signed [facility] Work Phone: 1(516) 308-434204-29-2024 Consult note Author Gabriel Rochelle [facility] December 28, 2023 12:59pm Note Date/Time December 28, 2023 12: 59pm [facility] Medical Records Department [address] [place] [address] Consultation - Orthopedics 12/28/23 1252 MR#: [id number] Acct: [id number] Name: OLGA DONALDSON Rep #:[id number] : 1945 78 From: Gabriel Blue PCP: Dr. Ramone Smiley MD Status:ADM IN Location: [facility] IF358-2 HPI Consult Data Date of Consult: 12/28/23 [...] She denies any previous DVTs or PEs. [facility] Medical History Anemia Anxiety Aortic stenosis [...] tablet 81 mg PO DAILY [facility] 01/21/16 [History Last Taken 08/12/23] albuterol [...] % (Auto) 51.7, Lymph % (Auto) 37.1, Boundary % (Auto) 6.6, Eos % (Auto) 3.1, [...] rehab. Patient's projected recovery will likely require [facility] or intensive inpatient rehabilitation prior to discharge back home. (2) Falls: (3) Weakness: (4) Microcytic anemia: (5) Chronic renal failure, stage 3 (moderate): QUALIFIERS: Chronic kidney disease stage 3 subtype: unspecified whether 3a or 3b Qualified Code(s): N18.30 - Chronic kidney disease, stage 3 unspecified 12/28/23 1259 <Electronically signed by Gabriel Byrd MD> Cosigner Signature (if applicable): CC: Dr. Ramone Smiley MD~ Signed [facility] Work Phone: [phone]) 389-716304-29-2024 Procedure [facility] 12-28-2023 Progress note Author Sunny Bell [facility] December 28, 2023 11:23am Note Date/Time December 28, 2023 9:5 2am [facility] Medical Records Department [address] [place] [address] Progress Note - Hospitalist 12/28/23 0949 MR#: [id number] Acct: [id number] Name: ANIKAPATRICK BARILLASCA Rep #:[id number] : 1945 78 From: Sunny Blue PCP: Dr. Ramone Smiley MD Status:ADM IN Location: MS3 YG268-1 Reason for Visit Reason for Visit: Diagnoses [...] % (Auto) 51.7, Lymph % (Auto) 37.1, Boundary % (Auto) 6.6, Eos % (Auto) 3.1, [...] 23:29 EDT Reading Location ID and State: [id number] / [employer] , Service support , Hip/Pelvis X-Ray [...] Patient is a 78-year-old female who presented [facility] ED on 12/27/2023 with left hip pain after a fall at home. She got up from the couch toself catheter, got her walker turned and then lost balance and fell on her left hip. 1. Acute debility due to left impacted transcervical femoral neck fracture. ? Admit under inpatient status to [facility]. Orthopedics consulted. N.p.o. at midnight. PT/OT/case management [...] both a beta-jefe and nondihydropyridine calcium channel ejfe. BP elevated to the 150s to 170s on admit but suspect this is in part due to pain. Will continue Lopressor and hold diltiazem for now. 10. GERD ? Stable. Continue home PPI. DVT prophylaxis: Lovenox CODE STATUS: Full code, verified Expected disposition: TBD Charges/Coding Visit Charges Inpatient E&M: 90479 Subs Hosp L2 12/28/23 1123 <Electronically signed by Sunny Bell MD> Cosigner Signature (if applicable): CC: ~ Signed [facility] Work Phone: [phone]) 903-980304-29-2024 History and physical note Author Nestor Bartlett [facility] December 28, 2023 4:47am Note Date/Time December 27, 2023 11: 30pm [facility] Medical Records Department [address] [place] [address] H&P Exam - Hospitalist 12/27/23 2330 MR#: [id number] Acct: [id number] Name: OLGA DONADLSON Rep #:[id number] : 1945 78 From: Nestor roman DO PCP: Dr. Ramone Smiley MD Status:ADM IN Location: [facility] AZ723-9 HPI - General General Date of Admission: 12/27/23 Date of Service: 12/27/23 Chief Complaint: Left hip fracture HPI Narrative OLGA DONALDSON, is a 78 F who presented to [facility] ED on 12/27/2023 with left hip pain [...] Patient will be admitted for further management. [facility] Medical History Anemia Anxiety Aortic stenosis [...] % (Auto) 51.7, Lymph % (Auto) 37.1, Boundary % (Auto) 6.6, Eos % (Auto) 3.1, [...] Patient is a 78-year-old female who presented [facility] ED on 12/27/2023 with left hip pain after a fall at home. 1. Left femoral neck fracture ? Admit under inpatient status to [facility]. Orthopedics consulted. N.p.o. at midnight. Preop evaluation [...] 75 minutes. Charges/Coding Visit Charges Inpatient E&M: 25145 Init Hosp L3 12/28/23 0447 <Electronically signed by Nestor Bartlett DO> Cosigner Signature (if applicable): CC: Dr. Nestor Bartlett DO; Dr. Ramone Smiley MD~ Signed [facility] Work Phone: [phone]) 243-211204-29-2024 Discharge summary Author Queta Cortez [facility] December 28, 2023 2:33am Note Date/Time December 27, 2023 10: 23pm [facility] Medical Records Department [address] [place] [address] Emergency Department Summary 12/27/23 MR#: [id number] Acct: [id number] Name: OLGA DONALDSON Rep #:[id number] : 1945 78 From: Queta Cortez MD PCP: Dr. Ramone Smiley MD Status:ADM IN Location: [place] [address] HPI HPI - Fall History of Present [...] but no other form of anticoagulant. [facility] Medical History Anemia Anxiety Aortic stenosis [...] decision making narrative: Patient placed on cardiac tech. Patient given morphine and Zofran for pain [...] % (Auto) 51.7 Lymph % (Auto) 37.1 Boundary % (Auto) 6.6 Eos % (Auto) 3.1 [...] seen Dr. Ravi previously prior to his prison. Dr. Byrd is on-call for [facility] and I will speak with him [facility] and need for surgical repair. Discharge Plan Dx/Rx/DC Orders Clinical Impression: Fracture of hip, left, closed Disposition Disposition: Acute Care Hospital [facility] What to do if you have Problems For any increased pain, shortness of breath, bleeding, nausea or vomiting, chestpain, or any unexpected problems, contact your Primary Care Provider. Call [facility] ([phone]) or report to the closest Emergency Room. Call 911 if necessary. 12/28/23 0233 <Electronically signed by Queta Cortez MD> Cosigner Signature (if applicable): CC: Dr. Ramone Smiley MD ~ Signed [facility] Work Phone: [phone]) 341-276212-18-2023 Consult note Author Derrick Hallman [facility] August 17, 2023 11:38am Note Date/Time August 17, 2023 11:38am [facility] Medical Records Department [address] [place] [address] Counseling Note - Pharmacy 08/17/23 1137 MR#: [id number] Acct: [id number] Name: OLGA DONALDSON Rep #:[id number] : 1945 78 From: Derrick Hallman PCP: Dr. Ramone Smiley MD Status:ADM IN Y Location: [place] [address] Pharmacy [facility] has performed discharge [...] tablet 81 mg PO DAILY [facility] 01/21/16 albuterol sulfate 90 mcg/actuation aerosol [...] Signature (if applicable): Date CC: ~ Signed [facility] Work Phone: [phone]) 609-435112-18-2023 Discharge summary Author Sandeep Denson [facility] August 17, 2023 11:20am Note Date/Time August 17, 2023 11:12am [facility] Medical Records Department [address] [place] [address] Discharge Summary 08/17/23 1111 MR#: [id number] Acct: [id number] Name: OLGA DONALDSON Rep #:[id number] : 1945 78 From: Sandeep Denson MD PCP: Dr. Ramone Smiley MD Status:ADM IN Location: [place] [address] Providers Date of Admission: 08/13/23 Date of [...] mg chewable tablet 81 mg PO DAILY [facility] 01/21/16 albuterol sulfate 90 [...] - Requested for PT OT eval and outreach and education social worker to assist with discharge planning [...] 08/14/23 13:49 AG (Rec: 08/14/23 13:49 AG [id number]) Nutrition Malnutrition Evidence of Malnutrition Exists Yes [...] Right Blood Culture - Final GNR lactose time study clerk 08/13/23 11:10 Blood Culture (Wb) - Anticubital [...] Anne Marie Marshall MD [Med Staff - [employer]] - 08/25/23 10:30 am Disposition Disposition (needs filled in before D/C Order can be placed): Home, Self Care Charges/Coding Visit Charges Inpatient E&M: 44625 Disch Hosp >30min 08/17/23 1120 <Electronically signed by Sandeep Denson MD> Cosigner Signature (if applicable): CC: Dr. Sandeep Denson MD; Dr. Ramone Smiley MD~ Signed [facility] Work Phone: [phone]) 736-789412-17-2023 Progress note Author Nestor Bartlett [facility] August 16, 2023 1:08pm Note Date/Time August 16, 2023 1:08pm [facility] Medical Records Department [address] [place] [address] Progress Note - Hospitalist 08/16/23 1300 MR#: [id number] Acct: [id number] Name: OLGA DONALDSON Rep #:[id number] : 1945 78 From: Nestor roman DO PCP: Dr. Ramone Smiley MD Status:ADM IN Location: [place] [address] Reason for Visit Reason for Visit: Diagnoses [...] / 2330 2200 / 2500 2075 / 207 Balance 2020 / 1320 270 / 120 -1518.33 / -1518.33 Medical Nutrition Assessment Dietitian: Malnutrition Criteria Met Start: 08/14/23 13:49 Freq: Status: Active Protocol: Document 08/14/23 13:49 AG (Rec: 08/14/23 13:49 [id number]) Nutrition Malnutrition Evidence of Malnutrition Exists Yes [...] Right Blood Culture - Final GNR lactose time study clerk 08/13/23 11:10 Blood Culture (Wb) - Anticubital [...] is a 78-year-old female who presented to [facility] ED on 08/13/2023 with increasing generalized weakness [...] 35 minutes. Charges/Coding Visit Charges Inpatient E&M: 12267 Subs Hosp L2 08/16/23 1308 <Electronically signed by Nestor Bartlett DO> Cosigner Signature (if applicable): CC: ~ Signed [facility] Work Phone: [phone]) 212-775412-16-2023 Progress note Author Nestor [facility] August 15, 2023 1:28pm Note Date/Time August 15, 2023 1:24pm [facility] Medical Records Department [address] [place] [address] Progress Note - Hospitalist 08/15/23 1317 MR#: [id number] Acct: [id number] Name: OLGA DONALDSON Rep #:[id number] : 1945 78 From: Nestor roman DO PCP: Dr. Ramone Smiley MD Status:ADM IN Location: [place] [address] Reason for Visit Reason for Visit: Diagnoses [...] 08/14/23 13:49 AG (Rec: 08/14/23 13:49 AG [id number]) Nutrition Malnutrition Evidence of Malnutrition Exists Yes [...] Right Blood Culture - Preliminary GNR lactose time study clerk 08/13/23 11:00 Nasal Secretion SARS-CoV-2 & FLU [...] is a 78-year-old female who presented to [facility] ED on 08/13/2023 with increasing generalized weakness [...] cultures preliminarily positive for gram-negative wes lactose time study clerk, follow-up speciation and sensitivities. 3. LIA, resolved [...] 35 minutes. Charges/Coding Visit Charges Inpatient E&M: 95129 Subs Hosp L2 08/15/23 1328 <Electronically signed by Nestor Bartlett DO> Cosigner Signature (if applicable): CC: ~ Signed [facility] Work Phone: [phone]) 222-380512-15-2023 Progress note [facility] August 14, 2023 3:08pm Note Date/Time August 14, 2023 2:58pm [facility] Medical Records Department [address] [place] [address] Progress Note - Hospitalist 08/14/23 1454 MR#: [id number] Acct: [id number] Name: OLGA DONALDSON Rep #:[id number] : 1945 78 From: Nestor roman DO PCP: Dr. Ramone Smiley MD Status:ADM IN Location: [place] [address] Reason for Visit Reason for Visit: Diagnoses [...] 08/14/23 13:49 AG (Rec: 08/14/23 13:49 AG [id number]) Nutrition Malnutrition Evidence of Malnutrition Exists Yes [...] (Auto) 79.7 H, Lymph% (Auto) 11.1 L, Boundary % (Auto) 6.1, Eos % (Auto) 0.6, [...] Catheterized Urine Culture - Preliminary GNR lactose time study clerk 08/13/23 12:05 Blood Culture (Wb) - Anticubital Right Blood Culture - Preliminary GNR lactose time study clerk 08/13/23 11:10 Blood Culture (Wb) - Anticubital Right Blood Culture - Preliminary GNR lactose time study clerk 08/13/23 11:00 Nasal Secretion SARS-CoV-2 & FLU [...] is a 78-year-old female who presented to [facility] ED on 08/13/2023 with increasing generalized weakness [...] cultures preliminarily positive for gram-negative wes lactose time study clerk, follow-up speciation and sensitivities. 3. LIA, resolved [...] 35 minutes. Charges/Coding Visit Charges Inpatient E&M: 57908 Subs Hosp L2 08/14/23 1508 <Electronically signed by Nestor Bartlett DO> Cosigner Signature (if applicable): CC: ~ Signed [facility] Work Phone: [phone]) 599-587912-14-2023 Discharge summary Author Robert Allison [facility] August 13, 2023 3:29pm Note Date/Time August 13, 2023 10:40am [facility] Medical Records Department [address] [place] [address] Emergency Department Summary 08/13/23 MR#: [id number] Acct: [id number] Name: OLGA DONALDSON Rep #:[id number] : 1945 78 From: Robert Allison DO PCP: Dr. Ramone Smiley MD Status:ADM IN Location: [place] [address] HPI History of Present Illness Chief Complaint: [...] denies chest pain. She self caths. [facility] Medical History Anemia Anxiety Aortic stenosis [...] tablet 81 mg PO DAILY [facility] 01/21/16 [History Last Taken 08/12/23] albuterol [...] 82.7 H Lymph % (Auto) 9.4 L Boundary % (Auto) 6.1 Eos % (Auto) 0.1 [...] Sl. Cloudy Urine pH 5.0 Ur Specific [place] 1.015 Urine Protein 30 H Urine Glucose [...] Acute hyponatremia Disposition Disposition: Acute Care Hospital [facility] Discharge Date/Time: 08/13/23 14:54 What to do if you have Problems For any increased pain, shortness of breath, bleeding, nausea or vomiting, chestpain, or any unexpected problems, contact your Primary Care Provider. Call [facility] ([phone]) or report to the closest Emergency Room. Call 911 if necessary. 08/13/23 1529 <Electronically signed by Robert Allison DO> Cosigner Signature (if applicable): CC: Dr. Ramone Smiley MD ~ Signed [facility] Work Phone: [phone]) 732-980912-14-2023 History and physical note Author Heydi Amaya [facility] August 13, 2023 2:47pm Note Date/Time August 13, 2023 2:33pm [facility] Medical Records Department [address] [place] [address] H&P Exam - Hospitalist 08/13/23 1431 MR#: [id number] Acct: [id number] Name: OLGA DONALDSON Rep #:[id number] : 1945 78 From: Heydi Amaya MD PCP: Dr. Ramone Smiley MD Status:ADM IN Location: U ETC762- 1 HPI - General General Date of Admission: 08/13/23 Date of Service: 08/13/23 Chief Complaint: Increasing weakness HPI Narrative OLGA DONALDSON, is [id number] female history of GERD, COPD, hypertension, diabetes, chronic urinary retention with self cathing presented to [facility] 08/13/2023 with increasing generalized weakness and falls. [...] No other acute complaints at this time. [facility] Medical History Anemia Anxiety Aortic stenosis [...] mg chewable tablet 81 mg PO DAILY [facility] 01/21/16 [History Last Taken [...] (Auto) 82.7 H, Lymph% (Auto) 9.4 L, Boundary % (Auto) 6.1, Eos % (Auto) 0.1, [...] Sl. Cloudy, Urine pH 5.0, Ur Specific Lancaster 1.015, Urine Protein 30 H, Urine Glucose [...] -Hold oral hypoglycemics #DVT ppx: Heparin subcu Hyedi Amaya MD Charges/Coding Visit Charges Inpatient E&M: 57998 Init Hosp L2 08/13/23 1447 <Electronically signed by Heydi Amaya MD> Cosigner Signature (if applicable): CC: Dr. Ramone Smiley MD; Dr. Heydi Amaya MD~ Signed [facility] Work Phone: 1(516) 545-498805-31-[address] Lockwood [facility] January 28, 2023 4:30pm Note Date/Time January 28, 2023 3:17p m [facility] Medical Records Department [address] [place] [address] Emergency Department Summary 01/28/23 MR#: [id number] Acct: [id number] Name: OLGA DONALDSON Rep #:[id number] : 1945 78 From: Joseph Lockwood MD [...] which she has every single day. [facility] Medical History Anemia Anxiety Aortic stenosis [...] unit/mL subcutaneous solution 22 unit SQ BID ieydwdbt46/03/20 [History Last Taken Unknown] insulin detemir U-100 [...] % (Auto) 56.6 Lymph % (Auto) 34.2 Boundary % (Auto) 5.6 Eos % (Auto) 2.6 [...] rhythm with a rate of 86. Normal AK and QTc intervals. No ischemic changes. Interpreted [...] packet 0.5 ea PO BID Rx Instructions: 09/03-1 capful before each meal pantoprazole 40 MG tablet 40 mg PO QHS insulin detemir U-100 100 UNITS/ML insulin pen 56 units SC BIDCM Label Comments: diabetic medication Rx Instructions: . insulin aspart U-100 100 UNIT/ML solution 22 unit SQ BIDCM vitamin G-vnihjmjykwpk-dktuyyb 500 MG tablet,chewable 250 mg PO DAILY Primary Care Provider: Ramone Smiley Referrals: Ramone Smiley MD [Primary Care Provider] - 3-5 Days Disposition Disposition: Home, Self Care What to do if you have Problems For any increased pain, shortness of breath, bleeding, nausea or vomiting, chestpain, or any unexpected problems, contact your Primary Care Provider. Call [facility] ([phone]) or report to the closest Emergency Room. Call 911 if necessary. 01/28/23 1630 <Electronically signed by Joseph Lockwood MD> Cosigner Signature (if applicable): CC: Dr. Ramone Smiley MD ~ Signed [facility] Work Phone: [phone]) 100-593109-07-2022 NoteHNO ID: [id number] Author: 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 APRN.MANAGER PATHOLOGY Service: ? Author Type: Nurse Practitioner Type: [...] an every 2-week basis for 4 cycles (CALGB-73143). Completed a year of trastuzumab 06/16/06. Referred back or anemia. Admitted to [facility] 12/02/2019 for chest pain with ambulation. [...] 1.00 - 4.00 k/uL 2.70 2.30 2.03 Boundary% % 7.0 6.6 6.9 Abs Boundary <0.87 k/uL 0.49 0.47 0.47 Eosin% % [...] loss - ICD9: 280.0, (more content not included)...[facility]09-07-2022 History of Present illness Narrative* 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, SERVICE CONTROL OPERATOR.MANAGER PATHOLOGY - 05/07/2022 1:33 PM EDT Chief Complaint [...] an every 2-week basis for 4 cycles (CALGB-57326). Completed a year of trastuzumab 06/16/06. Referred back or anemia. Admitted to [facility] 12/02/2019 for chest pain with ambulation. [...] 1.00 - 4.00 k/uL 2.70 2.30 2.03 Boundary% % 7.0 6.6 6.9 Abs Boundary <0.87 k/uL 0.49 0.47 0.47 Eosin% % [...] visit. 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 APRN.MARLI [facility]2022 Miscellaneous Notes* Telephone Encounter - Stacie Varner LPN - 02/10/2022 8:33 AM EDT Pt called and notified, pt voices understanding. Stacie Varner LPN * Telephone Encounter - Joseph Rolle DO - 02/10/2022 6:20 AM EDT Can let her know CBC and iron levels doing well. Follow up as scheduled. Joseph Rolle DO documented in this encounterK[facility]01-31-2022 Miscellaneous Notes* Telephone Encounter - Joseph Rolle DO - 09/30/2021 12:13 PM EST Okay to wait until October. Joseph Rolle DO * Telephone Encounter - Jocelyn Abernathy - 09/30/2021 9:20 AM EST PT ALREADY SCHEDULED FOR LABS IN EARLY OCTOBER DOES THIS NEED PUSHED BACK A MONTH OR OKAY TO LEAVE IT? Jocelynnereida Abernathy * Telephone Encounter - Joseph Rolle DO - 09/29/2021 8:45 AM EST Can let her know I received lab results from Dr. Smiley's office from last fall. I'd like her to get3 month follow labs here to reassess her history of anemia and need for parenteral iron. Orders filed. Joseph Rolle DO documented in this encounterK[facility]07-15-2021 Miscellaneous Notes* Telephone Encounter - Marina Mathis [...] drive and will complete lab work and pick up driver stool cards 03/21/2021, same day as iron [...] may have had one more recently at [facility]). Add on for 5 more doses of iron sucrose and repeat CBC/Iron studies about a month after completing. Joseph Rolle DO documented in this encounterChillic[facility] note Author Eboni Chan [facility] December 30, 2023 2:23pm Note Date/Time December 30, 2023 2:24pm [facility] Medical Records Department [address] [place] [address] Counseling Note - Pharmacy 12/30/23 1423 MR#: [id number] Acct: [id number] Name: OLGA DONALDSON Rep #:[id number] : 1945 78 From: Eboni Chan PCP: Dr. Ramone Smiley MD Status:ADM IN [facility] [place] [facility] Reconciliation Pharmacy Service has performed discharge medication reconciliation for this patient. The patient's discharge medication list was reviewed for discrepancies and discrepancies were resolved. Medications at Discharge Home Medications aspirin 81 mg chewable tablet 81 mg PO DAILY [facility] 01/21/16 albuterol sulfate 90 mcg/actuation aerosol [...] bisacodyl 10 mg rectal suppository 10 mg AK DAILY #0 ea 12/30/23 insulin glargine-yfgn 100 [...] Signature (if applicable): Date CC: ~ Signed [facility] Work Phone: Consult note Author Eboni Chan [facility] Note Date/Time January 24, 2025 2:52p [facility] Medical Records Department [address] [place] [address] Counseling Note - Pharmacy 01/24/25 1451 MR#: [id number] Acct: [id number] Name: OLGA DONALDSON Rep #:[id number] : 1945 80 From: Eboni Chan PCP: Dr. Ramone Smiley MD Status:ADM IN [facility] Counseling Pharmacy Service has performed [...] tablet 81 mg PO DAILY [facility] 01/21/16 magnesium oxide 400 mg (241.3 mg [...] Signature (if applicable): Date CC: ~ Signed [facility] Work Phone: Discharge summary Author Sunny Bell [facility] December 30, 2023 2:14pm Note Date/Time December 30, 2023 2:05pm [facility] Medical Records Department [address] [place] [address] Transfer to Extended Care MR#: [id number] Acct: [id number] Name: OLGA DONALDSON Rep #:[id number] : 1945 78 From: Sunny Blue PCP: Dr. Ramone Smiley MD Status:ADM IN Certification of patient admission REQUIRED AT TIME OF ADMISSION. I CERTIFY THAT POST-HOSPITAL ECF SERVICES ARE REQUIRED TO BE GIVEN ON AN IN-PATIENT BASIS BECAUSE OF THE ABOVE NAMED PATIENT'S NEED FOR RETIREMENT CARE ON A CONTINUING BASIS FOR THE CONDITION(S) FOR WHICH HE/SHE WAS RECEIVING IN-PATIENT HOSPITAL SERVICES PRIOR TO HIS/HER TRANSFER TO THE [facility]. 12/30/23 1414<Electronically signed by Sunny Bell [...] Patient is a 78-year-old female who presented [facility] ED on 12/27/2023 with left hip pain after a fall at home. She got up from the couch toself catheter, got her walker turned and then lost balance and fell on her left hip. 1. Acute debility due to left impacted transcervical femoral neck fracture. ? Admit under inpatient status to [facility]. Orthopedics consulted. N.p.o. at midnight. PT/OT/case management [...] the phone who lives in [facility]. Patient is clinically doing well. Currently has [...] Hemoglobin 12.4 on admit, recent baseline around 05-11. Suspect somewhat hemoconcentrated as noted above. 12/27: [...] 0RF bisacodyl 10 mg Suppository 10 mg AK DAILY Qty: 0 0RF insulin glargine-yfgn 100 [...] be placed): [facility] 12/30/231413 <Electronically signed by Sunny Bell MD> Cosigner Signature (if applicable): CC: Dr. Nestor Bartlett DO; Dr. Ramone Smiley MD; Dr. Gabriel Byrd MD ~ [facility] Work Phone: Discharge summary Author Sunny Bell [facility] December 30, 2023 2:26pm Note Date/Time December 30, 2023 2:21pm [facility] Medical Records Department [address] [place] [address] Discharge Summary 12/30/231413 MR#: [id number] Acct: [id number] Name: OLGA DONALDSON Rep #:[id number] : 1945 78 From: Sunny Blue PCP: Dr. Ramone Smiley MD Status:ADM IN Location: [place] [address] Providers Date of Admission: 12/27/23 Date of [...] Patient is a 78-year-old female who presented [facility] ED on 12/27/2023 with left hip pain after a fall at home. She got up from the couch toself catheter, got her walker turned and then lost balance and fell on her left hip. 1. Acute debility due to left impacted transcervical femoral neck fracture. ? Admit under inpatient status to [facility]. Orthopedics consulted. N.p.o. at midnight. PT/OT/case management [...] the phone who lives in [facility]. Patient is clinically doing well. Currently has [...] tablet 81 mg PO DAILY [facility] 01/21/16 albuterol sulfate 90 mcg/actuation aerosol [...] bisacodyl 10 mg rectal suppository 10 mg AK DAILY #0 ea 12/30/23 insulin glargine-yfgn 100 [...] % (Auto) 63.9, Lymph % (Auto) 25.3, Boundary % (Auto) 8.7, Eos % (Auto) 1.4, [...] 0RF bisacodyl 10 mg Suppository 10 mg AK DAILY Qty: 0 0RF insulin glargine-yfgn 100 [...] Facility Facility Charges/Coding Visit Charges Inpatient E&M: 06695 Disch Hosp >30min 12/30/23 1426 <Electronically signed by Sunny Bell MD> Cosigner Signature (if applicable): CC: Dr. Ramone Smiley MD; Dr. Sunny Bell MD; Dr. Gabriel Byrd MD~ Signed [facility] Work Phone: Discharge summary Author Melba Hartmann [facility] Note Date/Time January 24, 2025 1:27p m [facility] Medical Records Department [address] [place] [address] Instructions for Home/Discharge Instructions 01/24/25 1326 MR#: [id number] Acct: [id number] Name: OLGA DONALDSON Rep #:[id number] : 1945 80 From: Melba Hartmann MD [...] DO; Dr. Marcelina Soto MD ~ Signed [facility] Work Phone: Discharge summary Author Jg Bryan [facility] Note Date/Time January 26, 2025 5:10a m [facility] Medical Records Department [address] [place] [address] Emergency Department Summary 01/26/25 MR#: [id number] Acct: [id number] Name: OLGA DONALDSON Rep #:[id number] : 1945 80 From: Jg Bryan DO [...] and therefore comes in for evaluation [facility] Medical History Fracture of hip, left, [...] mg tablet 25 mg PO BID BLOOD AK ESSURE 08/16/18 01/15/25 History pantoprazole 40 mg [...] dysrhythmia. Patient was kept on the cardiac tech and there was no dysrhythmia noted. Blood [...] % (Auto) 65.0 Lymph % (Auto) 25.1 Boundary % (Auto) 6.7 Eos % (Auto) 2.8 [...] the upper limits for size. Reading Location: [facility] Chest x-ray as interpreted by the [...] you have any further concerns Print Language: South African Disposition Disposition: Home, Self Care What to do if you have Problems For any increased pain, shortness of breath, bleeding, nausea or vomiting, chestpain, or any unexpected problems, contact your Primary Care Provider. Call [facility] ([phone]) or report to the closest Emergency Room. Call 911 if necessary. 01/26/25 0510 <Electronically signed by Jg Bryan DO> Cosigner Signature (if applicable): CC: Dr. Ramone Smiley MD ~ Signed [facility] Work Phone: Discharge summary Author Aj Holley [facility] Note Date/Time February 04, 2025 10:27 am [facility] Medical Records Department [address] [place] [address] Emergency Department Summary 02/04/25 MR#: [id number] Acct: [id number] Name: OLGA DONALDSON Rep #:[id number] : 1945 80 From: Aj Holley MD [...] the couch, and has no pain. [facility] Medical History Elevated troponin Coronary artery [...] mg tablet 25 mg PO BID BLOOD AK ESSURE 08/16/18 01/15/25 History pantoprazole 40 mg [...] 75.4 H Lymph % (Auto) 15.7 L Boundary % (Auto) 6.6 Eos % (Auto) 1.7 [...] BID (DME) lancets [TRUEplus Lancets] [facility] MISCELLANEOUS Breztri Aerosphere 160-9-4.8 mcg/actuation HFA aerosol inhaler 2 inh inhalation BID Primary Care Provider: Ramone Smiley Referrals: Ramone Smiley MD [Primary Care Provider] - Print Language: South African What to do if you have Problems For any increased pain, shortness of breath, bleeding, nausea or vomiting, chestpain, or any unexpected problems, contact your Primary Care Provider. Call [facility] ([phone]) or report to the closest Emergency Room. [...] cc: Dr. Ramone Smiley MD ~* Signed [facility] Work Phone: Discharge summary Author Ethan Carie [facility] Note Date/Time April 02, 2025 4:5 6am [facility] Medical Records Department [address] [place] [address] Emergency Department Summary 04/02/25 MR#: [id number] Acct: [id number] Name: OLGA DONALDSON Rep #:[id number] : 1945 80 From: Ethan Casanova PCP: Dr. Ramone Smiley MD Status:ADM IN Location: ICU ICU02-1 HPI History of Present Illness Chief Complaint: Shortness of Breath Informant: patient and EMS Narrative Narrative: Brought in by EMS from home worsening dyspnea over the last 24 hours. Patient reported 2 evenings ago started having dyspnea she has minimal cough. COPD and asthma on chronic 2 L her oxygenation. Symptoms worsen over the past 24 hours. She is a diabetic. EMS was contacted given aerosol treatments she is put on 4 L. On arrival there is concerns that when exchange her oxygen she dropped in the 60s per nonrebreather. Patient denied any wheezing at home. She states hasnot required ventilator has required BiPAP in the past. No fever or chills. Novomiting or diarrhea. Reports decreased urine output no dysuria. Prior similar symptoms: Yes PFSH PFSH Medical History COPD exacerbation Acute UTI Back muscle spasm Former smoker On home oxygen therapy Osteoporosis [...] SUPPLEM ENT 08/16/18 01/15/25 History magnesium) tablet pantoprazole 40 mg tablet,delayed 40 mg PO [...] mcg-formot 4.8 mcg/actuation HFA inhaler (Breztri Aerosphere) insulin glargine 100 unit/mL (3 20 unit subcut BID marco a bet01/07/25 01/15/25 History mL) subcutaneous pen (Lantus Solostar [...] supplement 03/24 Unknown History tablet,extended release (K-Tab) ipratropium 0.5 mg-albuterol 3 mg 3 ml inhalation Q6H. RT sob #120 02/06/25 Unknown Rx (2.5 mg base)/3 mL nebulization amps soln albuterol sulfate 90 mcg/actuation 2 puff inhalation [...] muscle spasm #10 03/21/25 Unknown Rx TABLETS doxycycline hyclate 100 mg tablet 100 mg PO BID #14 ta bs 03/25/25 Unknown Rx furosemide 20 mg tablet (Lasix) 20 mg PO DAILY #30 tab s 03/25/25 Unknown Rx metoprolol tartrate 25 mg tablet 12.5 mg (1/2 x 25 mg) PO BID #30 03/25/25 Unknown Rx tabs sacubitril 24 mg-valsartan 26 mg 1 tab PO BID #60 tabs 03/25/25 Unknown Rx tablet (Entresto) Allergy/AdvReac Type Severity Reaction Status Date / Time adhesive tape (tape) Allergy NEEDS Verified 04/02/25 02:49 FOLLOW-UP cephalexin monohydrate (From Allergy Rash Verified 04/02/25 02:49 Keflex) clopidogrel bisulfate (From Allergy Other Verified 04/02/25 02:49 Plavix) oxycodone AdvReac Severe made me Verified 04/02/25 02:49 really crazy called bellperson on people amoxicillin AdvReac YEAST Verified 04/02/25 02:49 INFECTION Family History Daughter Breast cancer Father [...] weakness EXAM Physical Exam Const Vital Signs: 04/02/25 02:50 04/02/25 02:55 04/02/25 03:00 Temperature 97.6 F L Temperature Source Temporal Pulse Rate 143 H 107 H Respiratory Rate 27 H 25 H Respiratory Effort Short of Breath Labored Nasal Flaring Pursed Lip Respiratory Depth Shallow Respiratory Pattern Tachypnea Blood Pressure 172/96 H Blood Pressure Mean 121 Pulse Ox 100 Oxygen Delivery Method Airvo Nasal Cannula Oxygen Flow Rate (L/min) 15 4 Fraction of Inspired Oxygen (FIO2) 04/02/25 03:00 04/02/25 03:05 04/02/25 03:12 Temperature Temperature Source Pulse Rate 116 H 106 H Respiratory Rate 33 H 30 H Respiratory Effort Respiratory Depth Respiratory Pattern Blood Pressure 183/87 H Blood Pressure Mean 119 Pulse Ox 100 100 100 Oxygen Delivery Method Bi-pap Bi-pap Oxygen Flow Rate (L/min) Fraction of Inspired Oxygen (FIO2) 40 40 40 04/02/25 03:43 04/02/25 03:51 04/02/25 04:00 Temperature Temperature Source Pulse Rate 96 95 Respiratory Rate 31 H 23 H Respiratory Effort Respiratory Depth Respiratory Pattern Blood Pressure 99/54 L 105/56 L Blood Pressure Mean 69 72 Pulse Ox 100 100 Oxygen Delivery Method Bi-pap Bi-pap Oxygen Flow Rate (L/min) Fraction of Inspired Oxygen (FIO2) 35 35 23 04/02/25 04:17 04/02/25 04:27 Temperature 98.1 F Temperature Source Pulse Rate 95 90 Respiratory Rate 16 21 H Respiratory Effort Respiratory Depth Respiratory Pattern Blood Pressure 139/53 H Blood Pressure Mean 81 Pulse Ox 100 100 Oxygen Delivery Method Oxygen Flow Rate (L/min) Fraction of Inspired Oxygen (FIO2) 35 Positive well nourished Constitutional Narrative: Patient was on nasal cannula during my evaluation tachypneic speaking in short sentences was diaphoretic. HEENT Reports moist mucous membranes normocephalic and atraumatic Eyes General Eye ED: Yes normal appearance of both eyes Neck full ROM Chest Wall Chest: Negative for tenderness Resp normal respiratory effort and normal air movement Effort and Inspection: symmetric chest movement; Negative for respiratory distress Cardio regular rhythm and no murmurs Rate: tachycardic Peripheral Pulses: [...] making narrative: Interventions / MDM: Differential diagnosis: Acute respiratory failure, COPD exacerbation, pneumonia Diagnosis considered but do not suspect: N/A My EKG interpretation: Sinus tachycardia rate of 126, no ST changes T wave versions lateral leads there is PVCs noted. Similar T wave changes from February. Imaging independently reviewed and interpreted by myself: 1 view chest x-ray: Developing infiltrate versus edema. Also read by radiology. External documents reviewed: N/A Test considered but not ordered:N/A ED course: Patient tachycardic tachypneic sweaty on arrival. Immediate BiPAP was discussed with respiratory therapy. Diminished breath sounds therefore aerosol treatments were given. EKG was sinus tachycardia prior to BiPAP. 0330: Reevaluation on the BiPAP clinically much better heart rate in the 90s. ABG ordered however VBG was obtained from respiratory no pH of 7.45PCO2 of 45. Appropriate for patient's presentation. 0350: Labs for white count 9 hemoglobin 9.5 stable from previous. Creatinine 0.97. Glucose 186. Breath sounds much better. No wheezing however COPD and asthma distress will start Solu-Medrol 60 mg IV. X-ray concerning for developing pneumonia versus edema. Discussed with the patient leg swelling is improving she denies orthopnea she is on a water pill. At this time concerns more of infiltrative concerns pressure with her cough leadto worsening dyspnea. No current leg swelling. I spoke with hospitalist Dr. Benito, multiple allergies, will do Levaquin. She had previous Rester panel was positive for viral findings. Added respiratory panel. COVID flu and RSV were negative. Patient be placed in the ICU due to respiratory failure. Re-evaluation: stable Disposition discussed with patient/family/significant other: Patient Case discussed with consulting clinician: Hospitalist This note was generated with FitStaration software. It may contain incorrectwords, spelling, and punctuation that were not noted in checking the note beforesigning. Lab Data Attestation: I reviewed the patient's lab results. Labs: Laboratory Results - last 24 hr 04/02/25 04/02/25 04/02/25 02:53 03:11 03:53 WBC 9.0 RBC 3.43 L Hgb 9.5 L Hct 30.4 L MCV 88.6 MCH 27.7 MCHC 31.3 L RDW Std Deviation 51.5 H RDW Coeff of Vijay 16.0 H Plt Count 296 MPV 11.9 Immature Gran % (Auto) 0.200 Neut % (Auto) 35.5 L Lymph % (Auto) 49.3 H Boundary % (Auto) 11.1 H Eos % (Auto) 3.3 Baso % (Auto) 0.6 Absolute Neuts (auto) 3.2 Absolute Lymphs (auto) 4.43 Nucleated RBC % 0 PT 14.1 INR 1.1 APTT 28.6 Sodium 138 Potassium 4.3 Chloride 101 Carbon Dioxide 23.3 Anion Gap 13 BUN 14 Creatinine 0.97 Estim Creat Clear Calc 46.30 L Est GFR (MDRD) Non-Af 59 L BUN/Creatinine Ratio 14.4 Glucose 186 H Lactic Acid 1.8 Calcium 10.3 Total Bilirubin 0.34 AST 181 H ALT 53 H Alkaline Phosphatase 132 [place] [address] H Total Protein 6.9 Albumin 3.5 Globulin 3.5 Albumin/Globulin Ratio 1.0 Urine Color Yellow Urine Clarity Cloudy Urine pH 6.0 Ur Specific Lancaster 1.020 Urine Protein 100 H Urine Glucose (UA) 1000 H Urine Ketones Negative Urine Occult Blood 250 H Urine Nitrite Negative Urine Bilirubin Negative Urine Urobilinogen Normal Ur Leukocyte Esterase 500 H Urine RBC 5-10 SEEN Urine WBC 25-50 SEEN Ur Squamous Epith Cells 0-5 SEEN Urine Bacteria 1+ Urine Mucus 0 SEEN Urine Yeast 2+ ABG Data ABG results: ABG 04/02/25 03:34 Specimen Type BALJIT Sample Site Not entered O2 % 40.0 VBG pH 7.46 H VBG pO2 36 VBG HCO3 32 H VBG Total CO2 33 VBG O2 Sat (Calc) 71 H VBG Base Excess 8 H POC Mix VBG pCO2 Pt Tmp 44.9 O2 Delivery Device BiPAP Clinical Comments 18. 9. Radiography Diagnostic Testing: Clinical Impression(s) from Imaging Studies Chest X-Ray 04/02/25 03:35 IMPRESSION: Interval development of asymmetric edema or pneumonia. Advise correlation. Reading Location: [place] [address] Critical Care Time Critical Care Time: Yes Critical care time (excluding procedures): 30-74 minutes, Discussing w/Patient &/or Family/Nurse Infection Control, Discussing w/Consultants, Arranging Admission or Transfer, Performing Direct Patient Care at Bedside and - (40 minutes) Discharge Plan Triage Chief Complaint: Shortness of Breath ED Provider: Ethan Suarez Dx/Rx/DC Orders Primary Care Provider: Ramone Smiley What to do if you have Problems For any increased pain, shortness of breath, bleeding, nausea or vomiting, chestpain, or any unexpected problems, contact your Primary Care Provider. Call [facility] ([phone]) or report to the closest Emergency Room. Call 911 if necessary. 04/02/25 0453 <Electronically signed by Ethan Casanova> Cosigner Signature (if applicable): CC: Dr. Ramone Smiley MD ~ Signed [facility] Work Phone: Evaluation note* Diagnosis Onset Date Resolution Status Multiple thyroid nodules acu te Chronic renal failure, stage 3 (moderate) chronic Hypercalcemia chronic Abscess acute Abscess acute Abscess acute [facility] Work Phone: Evaluation note* Diagnosis Iron deficiency anemia due to chronic blood loss- Primary Iron deficiency anemia secondary to blood loss (chronic) documented in this encounter [facility] note* Diagnosis Onset Date Resolution Status Abscess acute Abscess acute Abscess acute Abscess acute Abscess acute Paronychia of left index finger [facility] Work Phone: Evaluation note* Diagnosis Iron deficiency anemia due to chronic blood loss- Primary Iron deficiency anemia secondary to blood loss (chronic) documented in this encounter [facility] note* Diagnosis Anemia, unspecified type- Primary documented in this encounter [facility] note* Diagnosis Iron deficiency anemia due to chronic blood loss- Primary Iron deficiency anemia secondary to blood loss (chronic) documented in this encounter [facility] noteNo assessment information availableWPremier [facility] Work Phone: Evaluation note* Diagnosis Onset Date Resolution Status Gastroenteritis acute [facility] Work Phone: Evaluation note* Diagnosis Onset Date Resolution Status Gastroenteritis acute Falls acute Weakness acute Asthma chronic COPD (chronic obstructive pulmonary disease) chronic GERD (gastroesophageal reflux disease) chronic History of malignant neoplasm of breast chronic Hypertension chronic Neurogenic bladder chronic Type 2 diabetes mellitus chr onic Acute hyponatremia resolved Acute UTI resolved LIA (acute kidney injury) re solved [facility] Work Phone: Evaluation note* Diagnosis Onset Date Resolution Status Fracture of hip, left, closed acute [facility] Work Phone: Evaluation note* Diagnosis Onset Date Resolution Status Falls acute Fracture of hip, left, closed acute Microcytic anemia acute Weakness acute Chronic renal failure, stage 3 (moderate) chronic Hypercalcemia chronic [facility] Work Phone: Evaluation note* Diagnosis Onset Date Resolution Status Gastroenteritis acute Acute hyponatremia acute Acute UTI acute LIA (acute kidney injury) ac jason [place] acute Weakness acute Asthma chronic COPD (chronic obstructive pulmonary disease) chronic GERD (gastroesophageal reflux disease) chronic History of malignant neoplasm of breast chronic Hypertension chronic Neurogenic bladder chronic Type 2 diabetes mellitus chr onic [facility] Work Phone: History and physical note Author Heydi Amaya [facility] August 13, 2023 2:47pm Note Date/Time August 13, 2023 2:33pm [facility] Medical Records Department [address] [place] [id number] H&P Exam - Hospitalist 08/13/23 1431 MR#: [id number] Acct: [id number] Name: OLGA DONALDSON Rep #:[id number] : 1945 78 From: Heydi Amaya MD PCP: Dr. Ramone Smiley MD Status:ADM IN Location: [place] [address] HPI - General General Date of Admission: 08/13/23 Date of Service: 08/13/23 Chief Complaint: Increasing weakness HPI Narrative OLGA DONALDSON, is [id number] female history of GERD, COPD, hypertension, diabetes, chronic urinary retention with self cathing presented to [facility] 08/13/2023 with increasing generalized weakness and falls. [...] No other acute complaints at this time. [facility] Medical History Anemia Anxiety Aortic stenosis [...] (Auto) 82.7 H, Lymph% (Auto) 9.4 L, Boundary % (Auto) 6.1, Eos % (Auto) 0.1, [...] Sl. Cloudy, Urine pH 5.0, Ur Specific [place] 1.015, Urine Protein 30 H, Urine Glucose [...] Amaya MD Charges/Coding Visit Charges Inpatient E&M: 23637 Init Hosp L2 08/13/23 1447 <Electronically signed by Heydi Amaya MD> Cosigner Signature (if applicable): CC: Dr. Ramone Smiley MD; Dr. Heydi Amaya MD~ Signed [facility] Work Phone: History and physical note Author Tono Gomez [facility] Note Date/Time February 09, 2025 3:52 pm [facility] Medical Records Department [address] [place] [address] H&P Exam - Hospitalist 02/09/25 1525 MR#: [id number] Acct: [id number] Name: OLGA DONALDSON Rep #:[id number] : 1945 80 From: Tono BHATTI PCP: [...] tightness, no dizziness or lightheadedness, no palpitations. [facility] Medical History COPD with exacerbation Anemia [...] mg tablet 25 mg PO BID BLOOD [place] ESSURE 08/16/18 01/15/25 History pantoprazole 40 mg [...] (Auto) 86.9 H, Lymph % (Auto) 7.3L, Boundary % (Auto) 4.5, Eos % (Auto) 0.1, [...] atelectasis. Reading Location: [facility] Assessment & Plan Assessment/Plan (1) COPD exacerbation: [...] DAVY Dykes; Dr. Ramone Smiley MD~ Signed [facility] Work Phone: History and physical note Author Nestor Bartlett [facility] Note Date/Time February 15, 2025 2:57 pm [facility] Medical Records Department [address] [place] [address] H&P Exam - Hospitalist 02/15/25 1401 MR#: [id number] Acct: [id number] Name: OLGA DONALDSON Rep #:[id number] : 1945 80 From: Nestor roman DO PCP: Dr. Ramone Smiley MD Status:ADM TED Location: [facility] [id number] HPI - General General Date of Admission: 02/15/25 Date of Service: 02/15/25 Chief Complaint: Shortness of breath, acute on chronic debility HPI Narrative OLGA DONALDSON, is a 80 F who presented to [facility] ED on 02/15/2025 with shortness of breath [...] currently. Will be admitted for further management. [facility] Medical History (Updated 02/15/25 @ 13:[address] oRbert Allison, DO) History of diabetes mellitus COPD exacerbation [...] tablet 81 mg PO DAILY HEART HEA LT 01/21/16 01/15/25 History magnesium oxide 400 mg (241.3 mg 400 mg PO BID SUPPLEM ENT 08/16/18 01/15/25 History magnesium) tablet metoprolol tartrate 25 mg tablet 25 mg PO BID BLOOD [place] ESSURE 08/16/18 01/15/25 History pantoprazole 40 mg [...] 82.5 H, Lymph % (Auto) 10.9 L, Boundary % (Auto) 4.8, Eos % (Auto) 0.7, [...] acute cardiopulmonary process. Reading [facility] Assessment & Plan Assessment/Plan (1) Generalized weakness: PLAN: Plan Patient is an 80-year-old female who presented [facility] ED on 02/15/2025 with recurrent shortness of breath and acute on chronic debility. 1. Acute on chronic debility ? Admit under observation status to [facility]. PT/OT/case management consulted. Multiple recent hospitalizations for [...] 75 minutes. Charges/Coding Visit Charges Inpatient E&M: 48939 Init Hosp L3 02/15/25 6482 <Electronically signed by Nestor Bartlett DO> Cosigner Signature (if applicable): CC: Dr. Nestor Bartlett, DO; Dr. Ramone Smiley MD~ Signed [facility] Work Phone: Hospital Discharge instructions Additional Instructions Chest x-ray negative. COVID, flu, RSV negative. Your glucose 321 the lab normal gap. You are given 10 units of short acting insulin. You were started on antibiotics and steroids. Your glucose will be elevated with the steroids. Continue insulin including your sliding scale. Next dose of antibiotics steroids is tomorrow. This was sent to [place].[facility] Work Phone: Hospital Discharge instructions Additional Instructions Take medications as prescribed. Follow-up your doctor in outpatient setting. Return with worsening symptoms or concerns.[facility] Work Phone: Hospital Discharge instructions Additional Instructions Please try to sleep at more of a inclined position as this will help prevent increasing shortness of breath from your congestive heart failure. Your labs and images show that everything is improving from your recent hospitalization and therefore continue all of your home medications as directed. Return to the ER should you have any further concernsWPremier [facility] Work Phone: Hospital Discharge instructions Additional Instructions Continue your steroids and your nebulizer treatments as previously directed. Your chest x-ray did not show pneumonia today. Continue to wear your nasal cannula oxygen.[facility] Work Phone: Hospital Discharge instructionsAdditional Instructions Follow-up with your doctor in outpatient setting. Follow-up and urine culture. Take antibiotic as prescribed sent to your pharmacy. Urinalysis did show evidence of infection. Take MiraLAX twice daily until you are having good bowel movements then you can reduce to once daily. Return with any other concerns or worsening symptomsWPremier Health [facility] Work Phone: Reason for referral (narrative)No reason for referral information availableWPremier Health [facility] Work Phone: Summary Purpose Family History Relationship Condition Age at Onset Recorded Date/T davis daughter Malignant neoplasm of breast Unknown father Hypertension Unknown sister Malignant neoplasm Unknown Kidney disorder Unknown mother Malignant neoplasm of pancreas Unknown Advance Directives Advance Directive Response Recorded Date/ Time Advance Directives Yes December 02 8:47am Living Will Yes December 02, 2021 8:47am Power of Web Press Operator Helper Offset Yes December 02 8:47am Documents on File Type Date Recorded 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 Advance Directive(s) 05/12/2016 10:06 AM Advance Directive(s) 04/30/2016 11:10 AM Advance Directive(s) 02/19/2016 5:55 AM Advance Directive(s) 02/14/2016 3:07 PM Advance Directive Response Recorded Date/ Time Advance Directives Yes December 02 7:47am Living Will Yes July 14, 2 022 2:52pm Power of Web Press Operator Helper Offset Yes July 14, 2022 2:52pm Name of Medical Power of Web Press Operator Helper Offset son July 14, 2022 2:52pm Advance Directive Response Recorded Date/ Time Advance Directives Yes December 02 8:47am Living Will Yes July 14, 2 022 3:52pm Power of Web Press Operator Helper Offset Yes July 14, 2022 3:52pm Advance Directive Response Recorded Date/ Time Name of Medical Power of Web Press Operator Helper Offset SHANTELLE January 28, 2023 3:11pm Advance Directives Yes December 02 8:47am Living Will Yes January 28, 2023 3 :11pm Power of Web Press Operator Helper Offset Yes January 28, 2023 3:11pm Advance Directive Response Recorded Date/ Time Name of Medical Power of Web Press Operator Helper Offset Ursula Donaldson July 18, 2023 11:35pm Advance Directives Yes December 02 7:47am Living Will Yes July 18, 2 023 11:35pm Power of Web Press Operator Helper Offset Yes July 18, 2023 11:35pm Advance Directive Response Recorded Date/ Time Name of Medical Power of Web Press Operator Helper Offset . August 07, 2023 9:45pm Advance Directives Yes December 02 7:47am Living Will No August 13, 2 023 3:22pm Power of Web Press Operator Helper Offset No August 13, 2023 3:22pm Name of Medical Power of Web Press Operator Helper Offset Ursula Donaldson July 18, 2023 11:35pm Advance Directive Response Recorded Date/ Time Advance Directives Yes December 02 8:47am Living Will No August 13, 2 023 4:22pm Power of Web Press Operator Helper Offset No August 13, 2023 4:22pm Advance Directive Response Recorded Date/ Time Advance Directives Yes December 02 8:47am Living Will No December 27, 2023 11:02pm Power of Web Press Operator Helper Offset No December 26 11:02pm Advance Directive Response Recorded Date/ Time Advance Directives Yes December 02 8:47am Living Will No December 28, 2023 12:27am Power of Web Press Operator Helper Offset No December 27 12:27am Advance Directive Response Recorded Date/ Time Name of Medical Power of Web Press Operator Helper Offset . August 07, 2023 9:45pm Advance Directives Yes December 02 7:47am Living Will No August 13 11:05am Power of Web Press Operator Helper Offset No August 13, 2023 11:05am Name of Medical Power of Web Press Operator Helper Offset Ursula Donaldson July 18, 2023 11:35pm Advance Directive Response Recorded Date/ Time Do you have a Healthcare Power of Web Press Operator Helper Offset? No January 07, 2025 3:00pm Advance Directives Yes December 02 8:47am Advance Directive Response Recorded Date/ Time Do you have a Healthcare Power of Web Press Operator Helper Offset? No January 15, 2025 2:24pm Do you have a Healthcare Power of Web Press Operator Helper Offset? No January 07, 2025 3:00pm Advance Directives Yes December 02 8:47am Advance Directive Response Recorded Date/ Time Do you have a Healthcare Power of Web Press Operator Helper Offset? No January 15, 2025 2:24pm Do you have a Healthcare Power of Web Press Operator Helper Offset? No January 20, 2025 4:39am Do you have a Healthcare Power of Web Press Operator Helper Offset? No January 07, 2025 3:00pm Advance Directives Yes December 02 8:47am Advance Directive Response Recorded Date/ Time Do you have a Healthcare Power of Web Press Operator Helper Offset? No January 15, 2025 2:24pm Do you have a Healthcare Power of Web Press Operator Helper Offset? No January 20, 2025 4:39am Do you have a Healthcare Power of Web Press Operator Helper Offset? No January 07, 2025 3:00pm Do you have a Healthcare Power of Web Press Operator Helper Offset? No January 26, 2025 3:01am Advance Directives Yes December 02 8:47am Advance Directive Response Recorded Date/ Time Do you have a Healthcare Power of Web Press Operator Helper Offset? No January 15, 2025 2:24pm Do you have a Healthcare Power of Web Press Operator Helper Offset? No January 20, 2025 4:39am Do you have a Healthcare Power of Web Press Operator Helper Offset? Yes February 04, 2025 6:32am Name of Medical Power of Web Press Operator Helper Offset February 04, 2025 6:32am Do you have a Healthcare Power of Web Press Operator Helper Offset? No January 07, 2025 3:00pm Do you have a Healthcare Power of Web Press Operator Helper Offset? No January 26, 2025 3:01am Advance Directives Yes December 02 8:47am Advance Directive Response Recorded Date/ Time Do you have a Healthcare Power of Web Press Operator Helper Offset? No January 15, 2025 2:24pm Do you have a Healthcare Power of Web Press Operator Helper Offset? No January 20, 2025 4:39am Do you have a Healthcare Power of Web Press Operator Helper Offset? Yes February 04, 2025 12:35pm Name of Medical Power of Web Press Operator Helper Offset February 04, 2025 6:32am Do you have a Healthcare Power of Web Press Operator Helper Offset? No January 07, 2025 3:00pm Do you have a Healthcare Power of Web Press Operator Helper Offset? No January 26, 2025 3:01am Advance Directives Yes December 02 8:47am Advance Directive Response Recorded Date/ Time Do you have a Healthcare Power of Web Press Operator Helper Offset? No January 15, 2025 2:24pm Do you have a Healthcare Power of Web Press Operator Helper Offset? No January 20, 2025 4:39am Do you have a Healthcare Power of Web Press Operator Helper Offset? Yes February 04, 2025 12:35pm Name of Medical Power of Web Press Operator Helper Offset February 04, 2025 6:32am Do you have a Healthcare Power of Web Press Operator Helper Offset? Yes February 09, 2025 12:01pm Name of Medical Power of Web Press Operator Helper Offset ursula lees jr February 09, 2025 12:01pm Do you have a Healthcare Power of Web Press Operator Helper Offset? No January 07, 2025 3:00pm Do you have a Healthcare Power of Web Press Operator Helper Offset? No January 26, 2025 3:01am Advance Directives Yes December 02 8:47am Advance Directive Response Recorded Date/ Time Do you have a Healthcare Power of Web Press Operator Helper Offset? No January 15, 2025 2:24pm Do you have a Healthcare Power of Web Press Operator Helper Offset? No January 20, 2025 4:39am Do you have a Healthcare Power of Web Press Operator Helper Offset? Yes February 04, 2025 12:35pm Name of Medical Power of Web Press Operator Helper Offset February 04, 2025 6:32am Do you have a Healthcare Power of Web Press Operator Helper Offset? Yes February 09, 2025 4:43pm Name of Medical Power of Web Press Operator Helper Offset ursula lees jr February 09, 2025 4:43pm Do you have a Healthcare Power of Web Press Operator Helper Offset? No January 07, 2025 3:00pm Do you have a Healthcare Power of Web Press Operator Helper Offset? No January 26, 2025 3:01am Advance Directives Yes December 02 8:47am Advance Directive Response Recorded Date/ Time Do you have a Healthcare Power of Web Press Operator Helper Offset? No January 15, 2025 2:24pm Do you have a Healthcare Power of Web Press Operator Helper Offset? No January 20, 2025 4:39am Do you have a Healthcare Power of Web Press Operator Helper Offset? Yes February 04, 2025 12:35pm Name of Medical Power of Web Press Operator Helper Offset February 04, 2025 6:32am Do you have a Healthcare Power of Web Press Operator Helper Offset? Yes February 09, 2025 4:43pm Name of Medical Power of Web Press Operator Helper Offset ursula lees jr February 09, 2025 4:43pm Do you have a Healthcare Power of Web Press Operator Helper Offset? Yes February 15, 2025 8:36am Do you have a Healthcare Power of Web Press Operator Helper Offset? No January 07, 2025 3:00pm Do you have a Healthcare Power of Web Press Operator Helper Offset? No January 26, 2025 3:01am Advance Directives Yes December 02 8:47am Advance Directive Response Recorded Date/ Time Do you have a Healthcare Power of Web Press Operator Helper Offset? No January 15, 2025 2:24pm Do you have a Healthcare Power of Web Press Operator Helper Offset? No January 20, 2025 4:39am Do you have a Healthcare Power of Web Press Operator Helper Offset? Yes February 04, 2025 12:35pm Name of Medical Power of Web Press Operator Helper Offset February 04, 2025 6:32am Do you have a Healthcare Power of Web Press Operator Helper Offset? Yes February 09, 2025 4:43pm Name of Medical Power of Web Press Operator Helper Offset ursula lees jr February 09, 2025 4:43pm Do you have a Healthcare Power of Web Press Operator Helper Offset? Yes February 15, 2025 3:20pm Do you have a Healthcare Power of Web Press Operator Helper Offset? No January 07, 2025 3:00pm Do you have a Healthcare Power of Web Press Operator Helper Offset? No January 26, 2025 3:01am Advance Directives Yes December 02 8:47am Advance Directive Response Recorded Date/ Time Do you have a Healthcare Power of Web Press Operator Helper Offset? No January 15, 2025 2:24pm Do you have a Healthcare Power of Web Press Operator Helper Offset? No January 20, 2025 4:39am Do you have a Healthcare Power of Web Press Operator Helper Offset? Yes February 04, 2025 12:35pm Name of Medical Power of Web Press Operator Helper Offset February 04, 2025 6:32am Do you have a Healthcare Power of Web Press Operator Helper Offset? Yes February 09, 2025 4:43pm Name of Medical Power of Web Press Operator Helper Offset ursula lees jr February 09, 2025 4:43pm Do you have a Healthcare Power of Web Press Operator Helper Offset? Yes February 15, 2025 3:20pm Do you have a Healthcare Power of Web Press Operator Helper Offset? No January 07, 2025 3:00pm Do you have a Healthcare Power of Web Press Operator Helper Offset? No January 26, 2025 3:01am Do you have a Healthcare Power of Web Press Operator Helper Offset? Yes February 18, 2025 8:56pm Advance Directives Yes December 02 8:47am Advance Directive Response Recorded Date/ Time Do you have a Healthcare Power of Web Press Operator Helper Offset? No January 15, 2025 2:24pm Do you have a Healthcare Power of Web Press Operator Helper Offset? No January 20, 2025 4:39am Do you have a Healthcare Power of Web Press Operator Helper Offset? Yes February 04, 2025 12:35pm Name of Medical Power of Web Press Operator Helper Offset February 04, 2025 6:32am Do you have a Healthcare Power of Web Press Operator Helper Offset? Yes February 09, 2025 4:43pm Name of Medical Power of Web Press Operator Helper Offset ursula lees jr February 09, 2025 4:43pm Do you have a Healthcare Power of Web Press Operator Helper Offset? Yes February 15, 2025 3:20pm Do you have a Healthcare Power of Web Press Operator Helper Offset? No January 07, 2025 3:00pm Do you have a Healthcare Power of Web Press Operator Helper Offset? No January 26, 2025 3:01am Do you have a Healthcare Power of Web Press Operator Helper Offset? Yes February 18, 2025 8:56pm Do you have a Healthcare Power of Web Press Operator Helper Offset? Yes March 04, 2025 6:52pm Advance Directives Yes December 02 8:47am Advance Directive Response Recorded Date/ Time Do you have a Healthcare Power of Web Press Operator Helper Offset? No January 15, 2025 2:24pm Do you have a Healthcare Power of Web Press Operator Helper Offset? No January 20, 2025 4:39am Do you have a Healthcare Power of Web Press Operator Helper Offset? Yes February 04, 2025 12:35pm Name of Medical Power of Web Press Operator Helper Offset February 04, 2025 6:32am Do you have a Healthcare Power of Web Press Operator Helper Offset? Yes February 09, 2025 4:43pm Name of Medical Power of Web Press Operator Helper Offset ursula lees jr February 09, 2025 4:43pm Do you have a Healthcare Power of Web Press Operator Helper Offset? Yes February 15, 2025 3:20pm Do you have a Healthcare Power of Web Press Operator Helper Offset? No January 07, 2025 3:00pm Do you have a Healthcare Power of Web Press Operator Helper Offset? No January 26, 2025 3:01am Do you have a Healthcare Power of Web Press Operator Helper Offset? Yes February 18, 2025 8:56pm Do you have a Healthcare Power of Web Press Operator Helper Offset? Yes March 04, 2025 6:52pm Do you have a Healthcare Power of Web Press Operator Helper Offset? No March 21, 2025 1:31pm Advance Directives Yes December 02 8:47am Advance Directive Response Recorded Date/ Time Do you have a Healthcare Power of Web Press Operator Helper Offset? No January 15, 2025 2:24pm Do you have a Healthcare Power of Web Press Operator Helper Offset? No January 20, 2025 4:39am Do you have a Healthcare Power of Web Press Operator Helper Offset? Yes February 04, 2025 12:35pm Name of Medical Power of Web Press Operator Helper Offset February 04, 2025 6:32am Do you have a Healthcare Power of Web Press Operator Helper Offset? Yes February 09, 2025 4:43pm Name of Medical Power of Web Press Operator Helper Offset ursula lees jr February 09, 2025 4:43pm Do you have a Healthcare Power of Web Press Operator Helper Offset? Yes February 15, 2025 3:20pm Do you have a Healthcare Power of Web Press Operator Helper Offset? No January 07, 2025 3:00pm Do you have a Healthcare Power of Web Press Operator Helper Offset? No January 26, 2025 3:01am Do you have a Healthcare Power of Web Press Operator Helper Offset? Yes February 18, 2025 8:56pm Do you have a Healthcare Power of Web Press Operator Helper Offset? Yes March 04, 2025 6:52pm Do you have a Healthcare Power of Web Press Operator Helper Offset? Yes March 22, 2025 12:37am Name of Medical Power of Web Press Operator Helper Offset ochoa [email or web address] March 22, 2025 12:37am Advance Directives Yes December 02 8:47am Advance Directive Response Recorded Date/ Time Do you have a Healthcare Power of Web Press Operator Helper Offset? No January 15, 2025 2:24pm Do you have a Healthcare Power of Web Press Operator Helper Offset? No January 20, 2025 4:39am Do you have a Healthcare Power of Web Press Operator Helper Offset? Yes February 04, 2025 12:35pm Name of Medical Power of Web Press Operator Helper Offset February 04, 2025 6:32am Do you have a Healthcare Power of Web Press Operator Helper Offset? Yes February 09, 2025 4:43pm Name of Medical Power of Web Press Operator Helper Offset ursula teo bradshaw February 09, 2025 4:43pm Do you have a Healthcare Power of Web Press Operator Helper Offset? Yes February 15, 2025 3:20pm Do you have a Healthcare Power of Web Press Operator Helper Offset? No January 07, 2025 3:00pm Do you have a Healthcare Power of Web Press Operator Helper Offset? No January 26, 2025 3:01am Do you have a Healthcare Power of Web Press Operator Helper Offset? Yes February 18, 2025 8:56pm Do you have a Healthcare Power of Web Press Operator Helper Offset? Yes March 04, 2025 6:52pm Do you have a Healthcare Power of Web Press Operator Helper Offset? Yes March 22, 2025 12:37am Name of Medical Power of Web Press Operator Helper Offset ochoa [email or web address] March 22, 2025 12:37am Do you have a Healthcare Power of Web Press Operator Helper Offset? No April 02, 2025 2:58am Advance Directives Yes December 02 8:47am Chief [...] sob January 26, 2025 3:00a m S/P [facility] 01/24 (PCU) January 31, 2025 [...] sob January 26, 2025 3:00a m S/P [facility] 01/24 (PCU) January 31, 2025 [...] sob January 26, 2025 3:00a m S/P [facility] 01/24 (PCU) January 31, 2025 [...] sob January 26, 2025 3:00a m S/P [facility] 01/24 (PCU) January 31, 2025 [...] sob January 26, 2025 3:00a m S/P [facility] 01/24 (U) January 31, 2025 1:42p m Reason for [...] sob January 26, 2025 3:00a m S/P [facility] 01/24 ([facility]) January 31, 2025 [...] sob January 26, 2025 3:00a m S/P [facility] 01/24 (PCU) January 31, 2025 [...] sob January 26, 2025 3:00a m S/P [facility] 01/24 (PCU) January 31, 2025 [...] sob January 26, 2025 3:00a m S/P [facility] 01/24 (PCU) January 31, 2025 [...] sob January 26, 2025 3:00a m S/P [facility] 01/24 (U) January 31, 2025 [...] sob January 26, 2025 3:00a m S/P [facility] 01/24 (PCU) January 31, 2025 [...] sob January 26, 2025 3:00a m S/P [facility] 01/24 (U) January 31, 2025 [...] 13, 2025 2:23pm ACUTE ON CHRONIC DEBILITY Priyanka 18th, 202 5 2:01pm ACUTE ON CHRONIC DEBILITY February 16 [...] sob January 26, 2025 3:00a m S/P [facility] 01/24 (U) January 31, 2025 [...] COPD exacerbation March 21, 2025 11:0 3pm Chief Complaint [...] sob January 26, 2025 3:00a m S/P [facility] 01/24 (PCU) January 31, 2025 [...] INTRACTABLE BACK PAIN, UTI March 25 11:33am ACURE RESPIRATORY FAILURE April 02 4:28am Reason for Visit Admit Date Acute hypoxemic [...] History of acute heart failure January 3:00pm Dyspnea February 15, 2025 2:01 pm Debility February 15, 2025 2:01 pm Generalized weakness February 15, 2025 2:0 1pm COPD exacerbation March 21, 2025 11:0 3pm Acute UTI March 21, 2025 11:0 3pm Back muscle spasm March 21, 2025 11:0 3pm Debility March 21, 2025 11:0 3pm Acute cystitis with hematuria March 4:28am Acute exacerbation of chronic heart fail ure April 02, 2025 4:28am Acute hypoxic respiratory failure April 02, 2025 4:28am Elevated d-dimer April 02, 2025 4:2 8am Neurogenic bladder April 02, 2025 4:2 8am Obesity (BMI 30.0-34.9) April 02, 2025 4:28am Pneumonia April 02, 2025 4:2 8am COPD exacerbation April 02, 2025 4:2 8am Additional Source Comments INFORMATION SOURCE (unrecogn ized section and content) DATE CREATED AUTHOR 02/25/2018 [facility] DATE CREATED AUTHOR AUTHOR'S ORGANIZ ATION 05/08/2022 [facility] DATE CREATED AUTHOR AUTHOR'S ORGANIZ ATION 04/01/2025 [facility] Goals (unrecognized section and content) Goals may [...] or prosecute any alcohol or drug abuse patient.[facility] the event this information is protected by the Federal Confidentiality of Alcohol and Drug Abuse Patient Records regulations: The Federal rules restrict any use of the information to criminally investigate or prosecute any alcohol or drug abuse patient.[facility] the event this information is protected by the Federal Confidentiality of Alcohol and Drug Abuse Patient Records regulations: The Federal rules restrict any use of the information to criminally investigate or prosecute any alcohol or drug abuse patient.[facility] the event this information is protected by the Federal Confidentiality of Alcohol and Drug Abuse Patient Records regulations: The Federal rules restrict any use of the information to criminally investigate or prosecute any alcohol or drug abuse patient.[facility] the event this information is protected by the Federal Confidentiality of Alcohol and Drug Abuse Patient Records regulations: The Federal rules restrict any use of the information to criminally investigate or prosecute any alcohol or drug abuse patient.[facility] Care Teams (unrecognized sec tion and content) [...] Start: January 22, 2025 Dr. Jeevan Yoder DO Emergency Provider Active Start: January 22, [...] January 26, 2025 End: January 26, 2025 Sql Server Dba Developer Relationship Specialty Start Date End Date Ramone Smiley MD PCP - General Family Practice 08/16/15 [employer] D[employer] Developer Relationship Specialty Start Date End Date Ramone Smiley MD PCP - General Family Practice 08/16/15 Sql Server Dba Developer Relationship Specialty Start Date End Date Ramone Smiley MD PCP - General Family Practice 08/16/15 Sql Server Dba Developer Relationship Specialty Start Date End Date Ramone Smiley MD PCP - General Family Practice 08/16/15 Sql Server Dba Developer Relationship Specialty Start Date End Date Ramone [...] Ramone Smiley MD Primary Care Provider, Attending Alice sanchez Active Team Status: Active Member Role Status [...] End: January 31, 2025 Whitney Cao NP, SUPERVISOR CEREAL-C Attending Provider Active Start: January 31, 2025 [...] Provider Active Start: February 09, 2025 Dr. Jermeiah Corrales MD Emergency Provider Active S tart: [...] Provider Active S tart: February 09, 2025 Tono BHATTI PA Attending Provider Active Sta rt: February 09, [...] January 21, 2025 Dr. Jeevan Yoder , Emergency Provider Active Start: January 21, 2025 [...] Start: January 22, 2025 Dr. Jeevan Yoder DO Emergency Provider Active Start: January 22, [...] S tart: January 22, 2025 Dr. Marcelina oSto MD Other Provider Active Start: January 22, [...] 2025 End: January 31, 2025 Whitney Cao SUPERVISOR CEREAL, SUPERVISOR CEREAL-C Attending Provider Active Start: January 31, 2025 [...] tart: February 10, 2025 Dr. Lucio Borden , DO Admit Provider Active S tart: February 10, 2025 Dr. Lucio Borden DO Attending Provider Active Start: February 10, 2025 Dr. Lucio Borden , DO Other Provider Active S tart: February 10, 2025 Team Status: Active Member Role/Relationship Status Dates Dr. Ramone Smiley MD Primary Care Provider Active Start: February 11, 2025 Dr. Jeremiah Corrales MD Emergency Provider Active S tart: February 11, 2025 Dr. Lucio Borden , DO Admit [...] February 12, 2025 Dr. Lucio Borden , Admit Provider Active S tart: February 12, [...] February 17, 2025 Dr. Robert Allison , DO Emergency Provider Active S tart: February [...] Active Start: March 07, 2025 Whitney Cao SUPERVISOR CEREAL, SUPERVISOR CEREAL-C Attending Provider Active Start: March 07, 2025 Whitney Cao SUPERVISOR CEREAL, SUPERVISOR CEREAL-C Referring Provider Active Start: March 07, 2025 [...] 2025 End: March 07, 2025 Whitney Cao SUPERVISOR CEREAL, SUPERVISOR CEREAL-C Attending Provider Active Start: March 07, 2025 End: March 07, 2025 Whitney Cao SUPERVISOR CEREAL, SUPERVISOR CEREAL-C Referring Provider Active Start: March 07, 2025 End: March 07, 2025 Team Status: Active Member Role/Relationship Status Dates Dr. Ramone Smiley MD Primary Care Provider Active Start: March 07, 2025 Whitney Cao SUPERVISOR CEREAL, SUPERVISOR CEREAL-C Referring Provider Active Start: March 07, 2025 Whitney Cao SUPERVISOR CEREAL, SUPERVISOR CEREAL-C Other Provider Active Sta rt: March 07, 2025 Dr. Se Good MD Attending Provider Active S tart: March 07, 2025 Team Status: Active Member Role/Relationship Status Dates Dr. Ramone Smiley MD Primary Care Provider Active Start: March 09, 2025 Whitney Cao SUPERVISOR CEREAL, SUPERVISOR CEREAL-C Attending Provider Active Start: March 09, 2025 [...] January 22, 2025 Dr. Sandeep Carlton DO Admit Provider Active Start: January 22, [...] 2025 End: January 31, 2025 Whitney Cao SUPERVISOR CEREAL, SUPERVISOR CEREAL-C Attending Provider Active Start: January 31, 2025 [...] Start: February 04, 2025 Dr. Lucio Borden , Admit Provider [...] Start: February 05, 2025 Dr. Lucio Borden , Admit Provider Active S tart: February 05, [...] Provider Active St art: March 25, 2025 Team Status: Active Member Role/Relationship Status Dates Dr. Ramone Smiley MD Primary Care Provider Active Start: April 02, 2025 Dr. Ethan Suarez DO Emergency Provider Active Start : April 02, 2025 Dr. Sandeep Carlton DO Admit Provider Active Start: April 02, 2025 Dr. Sandeep Carlton DO Attending Provider Active Start: April 02, 2025 Reason for Visit (unrecogniz ed section [...] BE BASED ON THE PRIMARY CLINICAL RECORDS. [facility]. provides no warranty or guarantee of the accuracy or completeness of information in this document.
--- OUTSIDE RECORDS SUMMARY | 2025-04-02 06:08 | XMS RPT_ITS | CCD ---
Author Organization [facility] CliniSytn Care Team Providers [employer] Maintainer Name Role Phone Zuleika Heaton Unavailable Unavailable LEE ALAMO Unavailable Unavailable PROVIDER, UNKNOWN Unavailable Unavailable Zuleika Heaton Unavailable Unavailable Dr. Ramone Smiley Primary Care Provider Dr. Ramone Smiley Referring Provider Dr. Michael Carmen Attending Provider Juan Carlos HEADEND TECHNICIAN, HEADEND TECHNICIAN-C Ara Attending Provider Dr. Angela Moncada Attending Provider [phone] Baljit LEARY, Ramone Noe Primary Care Provider [...] Provider Dr. Queta Cortez Emergency Provider [phone] Nestor Bartlett Admit Provider Dr. Nestor [...] Irvin RAYMUNDO, Dr. Gregorio Attending Provider Nash HEADEND TECHNICIAN-Marianna, Whitney Attending Provider Leydi LEARY, Dr. Rocha [...] Dr. Pack Attending Provider Baljit LEARY, Dr. Pakc Referring Provider Silvio LEARY, Dr. Barry Attending Provider RoseyDr. Noé rodriguez DO Emergency Provider Kristin LEARY, Dr. Abigail Awad Admit Provider Kristin LEARY, Dr. Abigail Awad Attending Provider Silvio LEARY, Dr. Barry Attending Provider [phone] Kristin LEARY, Dr. Abigail Awad Other Provider Smiley, Ramone Primary Care Unavailable Lucio Borden Admitting Unavailable Lucio Borden Consulting Unavailable Lucio Borden Attending Unavailable Nash HEADEND TECHNICIAN, Whitney Attending Unavailable Nash HEADEND TECHNICIAN, Whitney Referring Unavailable Smiley, Ramone Primary Care Unavailable Smiley, Ramone Referring Unavailable Smiley, Ramone Primary Care Unavailable Nash HEADEND TECHNICIAN, Whitney Attending Unavailable Abigail Foster Admitting Unavailable [...] Unavailable Smiley, Ramone Primary Care Unavailable Nash HEADEND TECHNICIAN, Whitney Consulting Unavailable Nash HEADEND TECHNICIAN, Whitney Referring Unavailable Se Good Attending Unavailable [...] Translations: [amoxicillin] drug allergy 5 yeast infection [facility] Work Phone: (2 sources) cephalexin drug allergy 5 [facility] Work Phone: (2 sources) clopidogrel drug allergy 5 [facility] Work Phone: (20 sources) Cephalexin; Translations: [cephalexin monohydrate] Drug Allergy 2 [facility] (20 sources) clopidogrel; Translations: [clopidogrel bisulfate] Drug Allergy 1 Hives [facility] Work Phone: (2 sources) cloth tap Allergy to substance 2 Other [facility] Work Phone: (5 sources) Cephalexin Drug Allergy 5 [facility] Work Phone: (5 sources) tape [Other] Propensity to adverse reactions 5 [facility] (2 sources) oxyCODONE Drug Allergy 5 [facility] (1 source) oxyCODONE Drug Allergy 5 [facility] Repository Medications Current Medications Medication Drug [...] 19, 2018 1:00am October 26, 2018 1:09am [id number] 200 actuat albuter ol 0.09 mg/actuat metered [...] AERS As needed - 90mcg/inh ALBUTEROL SULFATE [id number] Se Good MD Start: 08-29-2015 VENTOLIN HFA 1 08 (90 Base) MCG/ACT AERS As needed - 90mcg/inh ALBUTEROL SULFATE [id number] Se Good MD Start: 12-25-2014 End: 01-12-2018 [...] TABS One tablet by mouth daily ASPIRIN [id number] Kadie Álvarez RN Start: 08-23-2015 take 1 tablet by martin th once daily ASPIRIN 81 MG TABS One tablet by mouth daily ASPIRIN 67264499977 Kadie Álvarez RN take 1 tablet by [facility] once daily aspirin, enteric coated (ASPIRIN, [...] in each nostril twice daily AZELASTINE HCL 24780861502 Kadie Álvarez RN Start: 08-23-2015 take 1-2 spray(s) na deepali route twice daily ASTEPRO 0.15 % SOLN 1-2 sprays in each nostril twice daily AZELASTINE HCL 65156551338 Kadie Álvarez RN take 1-2 spray(s) na [...] MCG/ACT AERO 2 puffs daily BUDESONIDE-FORMOTEROL FUMARATE 67275909968 Kadie Álvarez RN Start: 08-23-2015 SYMBICORT 160- 4.5 MCG/ACT AERO 2 puffs daily BUDESONIDE-FORMOTEROL FUMARATE 65312932559 Kadie Álvarez RN take 1 puff(s) by in halation twice daily budesonide-formoterol (SYMBICORT) 160-4.5 mcg/actuation inhaler Indications: Other iron deficiency anemia Inhale 1 Puff as instructed twice daily. 0 Active Comment on above: Inhale 1 Puff as ins tructed twice daily. Lmsdontldk-Ebwrzgnb-Lebiqias ol (20 sources) Corticosteroid, beta2-Adrenergic Agonist Start: [...] POWD 3 times daily with water PSYLLIUM [id number] Kadie Álvarez RN Roflumilast (20 sources) Phosphodiesterase [...] EVERY WEEK January 15, 2025 12:00am Vitamin G-Pnelmkuucybc-Xalg ral (15 sources) Start: 12-02-2019 take 250 mg by mouth once daily Vitamin O-Cwjckeapbuys-Pet eral Active 250 MG PO DAILY December 02, 2019 11:46am Start: 12-02-2019 End: 07-18-2023 take 250 mg by mouth once daily Vitamin M-Dhrurqnhhywq-Czyyilm Discontinued 250 MG PO DAILY December 02, 2019 12:00am July 19, 2023 12:34am Start: 12-02-2019 End: 07-18-2023 take 250 mg by mouth once daily Vitamin L-Irtibeyqkddn-Ivzdhlr Discontinued 250 MG PO DAILY December 01, 2019 11:00pm July 18, 2023 11:34pm Start: 12-02-2019 take 250 mg by mouth once daily Vitamin C-Iqjcukaaedts-Ntokehy Active 25 0 MG PO DAILY December 01, 2019 11:00pm Start: 12-02-2019 take 250 mg by mouth once daily Vitamin S-Uyyyviapmtzy-Dkinvpe Active 25 0 MG PO DAILY December [...] One tablet by mouth daily AMLODIPINE BESYLATE 48644732892 Se Good MD apixaban 5 mg oral [...] lower legs 1-2 times daily BETAMETHASONE DIPROPIONATE 03222971774 Kadie Álvarez RN Start: 08-23-2015 BETAMETHASONE DIPROPIONATE 0.05 % LOTN apply to lower legs 1-2 times daily BETAMETHASONE DIPROPIONATE 71220991697 Kadie Álvarez RN bisacodyl 10 mg rectal suppo sitory (20 sources) Stimulant Laxative Start: 12-30-2023 End: 01-15-2024 Start: 08-23-2015 take 1 tablet by martin once daily as needed BISACODYL EC 5 MG TBEC One tablet by mouth daily as needed BISACODYL 18099038746 Kadie Álvarez RN calcium carbonate (2 sources) Start: 08-23-2015 take 1 tablet by mouth once daily CALCIUM 600 600 MG TABS One tablet by mouth daily CALCIUM CARBONATE 97865669458 Kadie Álvarez RN Calcium Carbonate / vitamin [...] 4 MG TABS As needed CHLORPHENIRAMINE MALEATE 26496311826 Se Good MD cholecalciferol 0.025 mg oral [...] by mouth daily COD LIVER OIL CAPS 99028752937 Kadie Álvarez RN take 1 capsule by mouth once neftaly ly Cod Liver Oil cap Indications: Other iron deficiency anemia Take 1 capsule by mouth once daily. 0 Active Comment on above: Take 1 capsule by mo [facility] once daily. Cod Liver Oil capsule (4 [...] martin th once daily DILT-XR 180 MG [id number] One tablet by mouth daily DILTIAZEM HCL 34036517348 Se Good MD Start: 08-29-2015 take 1 tablet by martin th once daily DILT-XR 180 MG [id number] One tablet by mouth daily DILTIAZEM HCL 78699613612 Se Good MD Comment on above: Take [...] Start: 08-13-2023 take 1 capsule by mo [facility] once daily Fiber Active 1 CAP PO [...] units SQ daily at bedtime INSULIN DETEMIR [id number] Mariana Finley RN Start: 08-23-2015 inject 28 [IU] by avila bcutaneous injection once daily LEVEMIR 100 UNIT/ML SOLN 28 units SQ daily INSULIN DETEMIR 42569063140 Kadie Álvarez RN Start: 08-23-2015 take 15 [IU] by subc utaneous injection once daily at bedtime LEVEMIR 100 UNIT/ML SOLN 15 units SQ daily at bedtime INSULIN DETEMIR 64991859579 Mariana Finley RN Start: 08-23-2015 take 28 [IU] by subc utaneous injection once daily LEVEMIR 100 UNIT/ML SOLN 28 units SQ daily INSULIN DETEMIR 31356074587 Kadie Álvarez RN inject 52 [IU] by [...] CAPS One tablet by mouth daily LINACLOTIDE 26402352919 Kadie Álvarez RN Start: 08-23-2015 take 1 tablet by martin th once daily LINZESS 290 MCG CAPS One tablet by mouth daily LINACLOTIDE 61603335295 Kadie Álvarez RN lisinopril 40 mg oral [...] One tablet by mouth daily MAGNESIUM CAPS 58575698138 Kadie Álvarez RN metFORMIN hydrochloride 1000 mg oral tablet (2 sources) Biguanide take 1 tablet by mouth twice daily GLUCOPHAGE 1000 MG TABS One tablet by mouth twice daily METFORMIN HCL 66613569495 Julita Chau NP metFORMIN hydrochloride 1000 mg / SITagliptin 50 mg oral tablet (4 sources) Biguanide, Dipeptidyl Peptidase 4 Inhibitor Start: 5 End: 5 take 1 tablet by mouth twice daily JANUMET 50-1000 MG TABS One tablet by mouth twice daily SITAGLIPTIN-METFORMI N HCL 37962044971 Se Good MD Start: 08-23-2015 End: 08-29-2015 take 1 tablet by mouth twice daily JANUMET 50-1000 MG TABS One tablet by mouth twice daily SITAGLIPTIN-METFORMIN HCL 01465116360 Se Good MD Start: 08-23-2015 take 1 tablet by martin twice daily JANUMET 50-1000 MG TABS One tablet by mouth twice daily SITAGLIPTIN-METFORMIN HCL 23035522315 Kadie Álvarez RN metoprolol tartrate 25 mg [...] three times daily as needed PROMETHAZINE HCL 50283444591 Kadie Álvarez RN PSYLLIUM HUSK, BULK, MISC [...] One tablet by mouth daily RANITIDINE HCL 16745826898 Kadie Álvarez RN Comment on above: Take [...] MIST) 0.65 % nasal spray Use 1 [place] in the nose as needed. 0 Active Comment on above: Use 1 [place] in the n ose as needed. sucralfate [...] End: 10-18-2020 Start: 01-24-2020 End: 10-18-2020 Tiotropium [place] (Spiriva With Handihaler) 18 mcg capsule, w/inhalation device Discontinued 1 NMA INHALATION NEEDED as needed for Sob &/Or Wheezing January 24, 2020 12:00am October 18, 2020 9:28am puncture 1 cap using device; one dose = 2 inhalations Start: 01-24-2020 End: 10-18-2020 Tiotropium [place] (Spiriva With Handihaler) 18 mcg capsule, w/inhalation device Discontinued 1 PUFF INHALATION NEEDED January 24, 2020 12:00am October 18, 2020 9:28am puncture 1 cap using device; one dose = 2 inhalations Start: 08-23-2015 SPIRIVA HANDIH ALER 18 MCG CAPS as needed TIOTROPIUM BROMIDE MONOHYDRATE 50789361118 Kadie Álvarez RN Start: 08-23-2015 SPIRIVA HANDIH ALER 18 MCG CAPS as needed TIOTROPIUM BROMIDE MONOHYDRATE 59277873664 Kadie Álvarez RN Start: 12-25-2014 End: 01-12-2018 [...] sources) Corticosteroid Start: 01-07-2025 End: 01-15-2025 Vitamin K-Zxocedrhzofj-Lybvyjy 500 MG tablet,chewable (2 sources) Start: 12-02-2019 End: 07-18-2023 Vitamin X-Qjcnciwaecez-Lqgeckh 500 MG tablet,chewable Discontinued 250 mg PO [...] Coronary arteriosclerosis; Translations: [Atherosclerotic heart disease of [place] coronary artery without angina pectoris] Onset: 5 [...] Respiratory failure; insufficiency; arrest (adult) (20 sources) Qvkza-fq-mmmbepz respiratory failure; Translations: [Acute respiratory failure with [...] Auto (Unsp spec) [#/Vol] 4.43 10*3/uL 0.83-4.51 [facility] Activated partial thrombopla stin time (aPTT) in platelet poor plasma by coagulation aOrdered By: Ethan Suarez on 04-02-2025 aPTT Coag (PPP) [Time] 28.6 s 24.1-36.2 [facility] Anion gap in Serum or Plasma Ordered By: Ethan Suarez on 04-02-2025 Anion gap [Moles/Vol] 13 mmol/L 5-15 [facility] Automated lymphocyte count a s percentage of total leukocytesOrdered By: Ethan Suarez on 04-02-2025 Lymphocytes/100 WBC Auto (Unsp spec) 49.3 % High 19-41 [facility] BUN/creatinine ratioOrdered By: Ethan Suarez on 04-02-2025 Urea nitrogen/Creatinine [Mass ratio] 14.4 mg/mg 10-20 [facility] Basophil percentageOrdered B y: Ethan Suarez on 04-02-2025 Basophils/100 WBC (Bld) 0.6 % 0-1 [facility] Bilirubin Test strip Ql (U)O rdered By: Ethan Suarez on 04-02-2025 Bilirubin Ql (U) Negative Negative [facility] Bilirubin, totalOrdered By: Ethan Suarez on 04-02-2025 Bilirubin [Mass/Vol] 0.34 mg/dL 0.00-1.30 [facility] CO2 (BldV) [Moles/Vol]Ordere d By: Ethan Suarez on 04-02-2025 CO2 [Moles/Vol] 33 mmol/L 23-33 [facility] Carbon dioxide, total [Moles /volume] in Central venous bloodOrdered By: Ethan Suarez on 04-02-2025 CO2 [Moles/Vol] 23.3 mmol/L 21.0-32.0 [facility] Chloride assayOrdered By: Albaro Suarez on 04-02-2025 Chloride [Moles/Vol] 101 mmol/L 98-108 [facility] Eosinophil percentageOrdered By: Ethan Suarez on 04-02-2025 Eosinophils/100 WBC (Bld) 3.3 % 0-5 [facility] Erythrocyte distribution wid th ratioOrdered By: Ethan Suarez on 04-02-2025 Erythrocyte distribution width (RBC) [Ratio] 16.0 % High 11.6-14.6 [facility] Erythrocyte distribution wid th standard deviationOrdered By: Ethan Suarez on 04-02-2025 Erythrocyte distribution width (RBC) [Ratio] 51.5 fl High 35.1-43.9 [facility] Glomerular filtration rate ( GFR) estimation/1.73 sq m using serum, plasma, or whole bOrdered By: Ethan Suarez on 04-02-2025 GFR/1.73 sq M.predicted among non-blacks MDRD (S/P/Bld) [Vol rate/Area] 59 mL/min/{1.73_m2} Low >60 [facility] Hematocrit Auto (Bld) [Volum e fraction]Ordered By: Ethan Suarez on 04-02-2025 Hematocrit (Bld) [Volume fraction] 30.4 % Low 37-47 [facility] Hemoglobin measurementOrdere d By: Ethan Suarez on 04-02-2025 Hemoglobin (Bld) [Mass/Vol] 9.5 g/dL Low 12.0-15.0 [facility] Immature granulocytes/100 WB C Auto (Bld)Ordered By: Ethan Suarez on 04-02-2025 Immature granulocytes/100 WBC (Bld) 0.200 % 0.0-0.9 [facility] Influenza virus A and B and SARS-CoV-2 (COVID-19) and Respiratory syncytial virus RNAOrdered By: Ethan Suarez on 04-02-2025 SARS-CoV-2 (COVID-19) RNA BEBETO+probe Ql (Unsp spec) [facility] Ketones Test strip Ql (U)Ord ered By: Ethan Suarez on 04-02-2025 Ketones Ql (U) Negative Negative [facility] MCV (mean corpuscular volume ) determinationOrdered By: Ethan Suarez on 04-02-2025 MCV (RBC) [Entitic vol] 88.6 fL 81-99 [facility] Mean corpuscular hemoglobin (MCH) determinationOrdered By: Ethan Suarez on 04-02-2025 MCH (RBC) [Entitic mass] 27.7 pg 27.0-32.0 [facility] Monocyte percentageOrdered B y: Ethan Suarez on 04-02-2025 Monocytes/100 WBC (Bld) 11.1 % High 0-10 [facility] Mucus LM Ql (Urine sed)Order ed By: Ethan Suarez on 04-02-2025 Mucus Ql (Urine sed) 0 SEEN /hpf [facility] Natriuretic peptide.B prohor hayley N-Terminal [Mass/volume] in Serum or PlasmaOrdered By: Ethan Suarez on 04-02-2025 Natriuretic peptide.B prohormone N-Terminal [Mass/Vol] 26837 pg/mL High <1800 [facility] Neutrophil percentageOrdered By: Ethan Suarez on 04-02-2025 Neutrophils/100 WBC (Bld) 35.5 % Low 47-70 [facility] Nitrite Test strip Ql (U)Ord ered By: Ethan Suarez on 04-02-2025 Nitrite Ql (U) Negative Negative [facility] No Panel InformationOrdered By: Ethan Suarez on 04-02-2025 BALJIT [facility] Not entered [facility] BiPAP [facility] 18. 9. [facility] 181 U/L High <32 [facility] Platelet countOrdered By: Albaro Suarez on 04-02-2025 Platelets (Bld) [#/Vol] 296 10*3/uL 150-450 [facility] Potassium measurement (mass/ volume)Ordered By: Ethan Suarez on 04-02-2025 Potassium (Unsp spec) [Mass/Vol] 4.3 mmol/L 3.3-5.1 [facility] Protein Test strip Ql (U)Ord ered By: Ethan Suarez on 04-02-2025 Protein Ql (U) 100 mg/dl High Negative [facility] Prothrombin timeOrdered By: Ethan Suarez on 04-02-2025 PT Coag (PPP) [Time] 14.1 s 11.7-14.9 [facility] RBC Auto (Bld) [#/Vol]Ordere d By: Ethan Suarez on 04-02-2025 RBC (Bld) [#/Vol] 3.43 10*6/uL Low 4.2-5.4 [facility] Serum creatinine measurement (mass/volume)Ordered By: Ethan Suarez on 04-02-2025 Creatinine [Mass/Vol] 0.97 mg/dL 0.70-1.20 [facility] Serum globulin measurementOr dered By: Ethan Suarez on 04-02-2025 Globulin (S) [Mass/Vol] 3.5 g/dL 2.2-4.2 [facility] Serum glucose measurement (m ass/volume)Ordered By: Ethan Suarez on 04-02-2025 Glucose [Mass/Vol] 186 mg/dL High 70-99 [facility] Serum or plasma alanine kelley otransferase (ALT) measurementOrdered By: Ethan Suarez on 04-02-2025 ALT [Catalytic activity/Vol] 53 U/L High <35 [facility] Serum or plasma albumin melanie urement (mass/volume)Ordered By: Ethan Suarez on 04-02-2025 Albumin [Mass/Vol] 3.5 g/dL 3.4-4.8 [facility] Serum or plasma albumin/glob ulin mass ratioOrdered By: Ethan Suarez on 04-02-2025 Albumin/Globulin [Mass ratio] 1.0 {ratio} 0.9-2.4 [facility] Serum or plasma alkaline lissa sphatase measurementOrdered By: Ethan Suarez on 04-02-2025 ALP [Catalytic activity/Vol] 132 U/L High 35-104 [facility] Serum or plasma calcium melanie urement (mass/volume)Ordered By: Ethan Suarez on 04-02-2025 Calcium [Mass/Vol] 10.3 mg/dL 7.6-11.0 [facility] Serum or plasma urea nitroge n measurement (mass/volume)Ordered By: Ethan Suarez on 04-02-2025 Urea nitrogen [Mass/Vol] 14 mg/dL 4-19 [facility] Sodium levelOrdered By: Ethan Suarez on 04-02-2025 Sodium [Moles/Vol] 138 mmol/L 133-145 [facility] Squamous epithelial cells de tection in urine sediment by light microscopyOrdered By: Ethan Suarez on 04-02-2025 Epithelial cells.squamous LM Ql (Urine sed) 0-5 SEEN /hpf 5-10 [facility] Total proteinOrdered By: Robb Suarez on 04-02-2025 Protein [Mass/Vol] 6.9 g/dL 5.9-8.4 [facility] Urine clarityOrdered By: Robb Suarez on 04-02-2025 Clarity (U) Cloudy Clear [facility] Urine color determinationOrd ered By: Ethan Suarez on 04-02-2025 Color (U) Yellow Yellow [facility] Urine glucose detectionOrder ed By: Ethan Suarez on 04-02-2025 Glucose Ql (U) 1000 mg/dl High Normal [facility] Urine leukocyte esterase det ection by dipstickOrdered By: Ethan Suarez on 04-02-2025 Leukocyte esterase Test strip Ql (U) 500 /ul High Negative [facility] Urine pHOrdered By: Ethan Suarez on 04-02-2025 pH (U) 6.0 [pH] 5.0 - 8.0 [facility] Urine sediment bacteria coun t by microscopy (number/high power field)Ordered By: Ethan Suarez on 04-02-2025 Bacteria LM.HPF (Urine sed) [#/Area] 1 /[HPF] None Seen [facility] Urine sediment yeast count b y microscopy (number/high powered field)Ordered By: Ethan Suarez on 04-02-2025 Yeast LM.HPF (Urine sed) [#/Area] 2 /[HPF] None Seen [facility] Urine specific gravity measu rementOrdered By: Ethan Suarez on 04-02-2025 Specific gravity (U) [Rel density] 1.020 1.002-1.030 [facility] Urine urobilinogen measureme ntOrdered By: Ethan Suarez on 04-02-2025 Urobilinogen Ql (U) Normal mg/dl Normal [facility] Venous blood base excess rubina surementOrdered By: Ethan Suarez on 04-02-2025 Base excess Calc (BldV) [Moles/Vol] 8 mmol/L High -1.0-3.5 [facility] Venous blood bicarbonate rubina surementOrdered By: Ethan Suarez on 04-02-2025 HCO3 (Bld) [Moles/Vol] 32 mmol/L High 22-26 [facility] Venous blood pH measurementO rdered By: Ethan Suarez on 04-02-2025 pH (BldV) 7.46 [pH] High 7.32-7.42 [facility] Venous blood partial pressur e of carbon dioxide measurementOrdered By: Ethan Suarez on 04-02-2025 CO2 (BldV) [Partial pressure] 44.9 mm[Hg] 41-51 [facility] Venous blood partial pressur e of oxygen measurementOrdered By: Ethan Suarez on 04-02-2025 Oxygen (BldV) [Partial pressure] 36 mm[Hg] 25-40 [facility] White blood cell (WBC) count Ordered By: Ethan Suarez on 04-02-2025 WBC (Bld) [#/Vol] 9.0 10*3/uL 4.4-11.0 [facility] White blood cell countOrdere d By: Ethan Suarez on 04-02-2025 White blood cell count 25-50 SEEN /hpf 0-5 [facility] Basic Metabolic Profile (BMP )on 03-30-2025 BUN Normal 4-19 [facility] Comment on above: Result Comment: Canc elled via OM: Order cancelled - Patient discharged Performed By: #### L 100.0100, L500.2500 ####[facility] [address] [facility] [address] BUN/CRE Normal 10-20 [facility] Comment on above: Result Comment: Canc elled via OM: Order cancelled - Patient discharged Performed By: #### L 100.0100, L500.2500 ####[facility] [address] [place], [address] Calcium Normal 7.6-11.0 [facility] Comment on above: Result Comment: Canc elled via OM: Order cancelled - Patient discharged Performed By: #### L 100.0100, L500.2500 ####[facility] [address] [place], [address] CL Normal 98-108 [facility] Comment on above: Result Comment: Canc elled via OM: Order cancelled - Patient discharged Performed By: #### L 100.0100, L500.2500 ####[facility] [address] [place], [address] CO2 Normal 21.0-32.0 [facility] Comment on above: Result Comment: Canc elled via OM: Order cancelled - Patient discharged Performed By: #### L 100.0100, L500.2500 ####[facility] [address] [place], [address] CREAT,SERUM Normal 0.70-1.20 [facility] Comment on above: Result Comment: Canc elled via OM: Order cancelled - Patient discharged Performed By: #### L 100.0100, L500.2500 ####[facility] [address] [place], [address] eGFR Normal >60 [facility] Comment on above: Result Comment: Canc elled via OM: Order cancelled - Patient discharged Performed By: #### L 100.0100, L500.2500 ####[facility] [address] [place], [address] GAP Normal 5-15 [facility] Comment on above: Result Comment: Canc elled via OM: Order cancelled - Patient discharged Performed By: #### L 100.0100, L500.2500 ####[facility] [address] [place], [address] GLU Normal 70-99 [facility] Comment on above: Result Comment: Canc elled via OM: Order cancelled - Patient discharged Performed By: #### L 100.0100, L500.2500 ####[facility] [address] [place], [address] Potassium Normal 3.3-5.1 [facility] Comment on above: Result Comment: Canc elled via OM: Order cancelled - Patient discharged Performed By: #### L 100.0100, L500.2500 ####[facility] [address] [place], [address] Basic Metabolic Profile (BMP) Normal 133-145 [facility] Comment on above: Result Comment: Canc elled via OM: Order cancelled - Patient discharged Performed By: #### L 100.0100, L500.2500 ####[facility] [address] [place], [address] CBC W/Diff, Automatedon 07-3 Absolute Neut Normal 2.0-7.7 [facility] Comment on above: Result Comment: Canc elled via OM: Order cancelled - Patient discharged Performed By: #### L 100.0100, L500.2500 ####[facility] [address] [place], [address] HCT Normal 37-47 [facility] Comment on above: Result Comment: Canc elled via OM: Order cancelled - Patient discharged Performed By: #### L 100.0100, L500.2500 ####[facility] [address] [place], [address] HGB Normal 12.0-15.0 [facility] Comment on above: Result Comment: Canc elled via OM: Order cancelled - Patient discharged Performed By: #### L 100.0100, L500.2500 ####[facility] [address] [place], [address] MCH Normal 27.0-32.0 [facility] Comment on above: Result Comment: Canc elled via OM: Order cancelled - Patient discharged Performed By: #### L 100.0100, L500.2500 ####[facility] [address] [place], [address] MCHC Normal 32-36 [facility] Comment on above: Result Comment: Canc elled via OM: Order cancelled - Patient discharged Performed By: #### L 100.0100, L500.2500 ####[facility] [address] [place], [address] MCV Normal 81-99 [facility] Comment on above: Result Comment: Canc elled via OM: Order cancelled - Patient discharged Performed By: #### L 100.0100, L500.2500 ####[facility] [address] [place], [address] NEUT% Normal 47-70 [facility] Comment on above: Result Comment: Canc elled via OM: Order cancelled - Patient discharged Performed By: #### L 100.0100, L500.2500 ####[facility] [address] [place], [address] PLT Normal 150-450 [facility] Comment on above: Result Comment: Canc elled via OM: Order cancelled - Patient discharged Performed By: #### L 100.0100, L500.2500 ####[facility] [address] [place], [address] RBC Normal 4.2-5.4 [facility] Comment on above: Result Comment: Canc elled via OM: Order cancelled - Patient discharged Performed By: #### L 100.0100, L500.2500 ####[facility] [address] [place], [address] RDW CV Normal 11.6-14.6 [facility] Comment on above: Result Comment: Canc elled via OM: Order cancelled - Patient discharged Performed By: #### L 100.0100, L500.2500 ####[facility] [address] [place], [address] RDW SD Normal 35.1-43.9 [facility] Comment on above: Result Comment: Canc elled via OM: Order cancelled - Patient discharged Performed By: #### L 100.0100, L500.2500 ####[facility] [address] [place], [address] WBC Normal 4.4-11.0 [facility] Comment on above: Result Comment: Canc elled via OM: Order cancelled - Patient discharged Performed By: #### L 100.0100, L500.2500 ####[facility] [address] [place], [address] Basic Metabolic Profile (BMP )on 03-29-2025 BUN Normal 4-19 [facility] Comment on above: Result Comment: Canc elled via OM: Order cancelled - Patient discharged Performed By: #### L 500.2500, L100.0100 ####[facility] [address] [place], [address] BUN/CRE Normal 10-20 [facility] Comment on above: Result Comment: Canc elled via OM: Order cancelled - Patient discharged Performed By: #### L 500.2500, L100.0100 ####[facility] [address] [place], [address] Calcium Normal 7.6-11.0 [facility] Comment on above: Result Comment: Canc elled via OM: Order cancelled - Patient discharged Performed By: #### L 500.2500, L100.0100 ####[facility] [address] [place], [address] CL Normal 98-108 [facility] Comment on above: Result Comment: Canc elled via OM: Order cancelled - Patient discharged Performed By: #### L 500.2500, L100.0100 ####[facility] [address] [place], [address] CO2 Normal 21.0-32.0 [facility] Comment on above: Result Comment: Canc elled via OM: Order cancelled - Patient discharged Performed By: #### L 500.2500, L100.0100 ####[facility] [address] [place], [address] CREAT,SERUM Normal 0.70-1.20 [facility] Comment on above: Result Comment: Canc elled via OM: Order cancelled - Patient discharged Performed By: #### L 500.2500, L100.0100 ####[facility] [address] [place], [address] eGFR Normal >60 [facility] Comment on above: Result Comment: Canc elled via OM: Order cancelled - Patient discharged Performed By: #### L 500.2500, L100.0100 ####[facility] [address] [place], [address] GAP Normal 5-15 [facility] Comment on above: Result Comment: Canc elled via OM: Order cancelled - Patient discharged Performed By: #### L 500.2500, L100.0100 ####[facility] [address] [place], [address] GLU Normal 70-99 [facility] Comment on above: Result Comment: Canc elled via OM: Order cancelled - Patient discharged Performed By: #### L 500.2500, L100.0100 ####[facility] [address] [place], [address] Potassium Normal 3.3-5.1 [facility] Comment on above: Result Comment: Canc elled via OM: Order cancelled - Patient discharged Performed By: #### L 500.2500, L100.0100 ####[facility] [address] [place], [address] Basic Metabolic Profile (BMP) Normal 133-145 [facility] Comment on above: Result Comment: Canc elled via OM: Order cancelled - Patient discharged Performed By: #### L 500.2500, L100.0100 ####[facility] [address] [place], [address] CBC W/Diff, Automatedon 07-3 0-2024 Absolute Neut Normal 2.0-7.7 [facility] Comment on above: Result Comment: Canc elled via OM: Order cancelled - Patient discharged Performed By: #### L 500.2500, L100.0100 ####[facility] [address] [place], [address] HCT Normal 37-47 [facility] Comment on above: Result Comment: Canc elled via OM: Order cancelled - Patient discharged Performed By: #### L 500.2500, L100.0100 ####[facility] [address] [place], [address] HGB Normal 12.0-15.0 [facility] Comment on above: Result Comment: Canc elled via OM: Order cancelled - Patient discharged Performed By: #### L 500.2500, L100.0100 ####[facility] [address] [place], [address] MCH Normal 27.0-32.0 [facility] Comment on above: Result Comment: Canc elled via OM: Order cancelled - Patient discharged Performed By: #### L 500.2500, L100.0100 ####[facility] [address] [place], [address] MCHC Normal 32-36 [facility] Comment on above: Result Comment: Canc elled via OM: Order cancelled - Patient discharged Performed By: #### L 500.2500, L100.0100 ####[facility] [address] [place], [address] MCV Normal 81-99 [facility] Comment on above: Result Comment: Canc elled via OM: Order cancelled - Patient discharged Performed By: #### L 500.2500, L100.0100 ####[facility] [address] [place], [address] NEUT% Normal 47-70 [facility] Comment on above: Result Comment: Canc elled via OM: Order cancelled - Patient discharged Performed By: #### L 500.2500, L100.0100 ####[facility] [address] [place], [address] PLT Normal 150-450 [facility] Comment on above: Result Comment: Canc elled via OM: Order cancelled - Patient discharged Performed By: #### L 500.2500, L100.0100 ####[facility] [address] [place], [address] RBC Normal 4.2-5.4 [facility] Comment on above: Result Comment: Canc elled via OM: Order cancelled - Patient discharged Performed By: #### L 500.2500, L100.0100 ####[facility] [address] [place], [address] RDW CV Normal 11.6-14.6 [facility] Comment on above: Result Comment: Canc elled via OM: Order cancelled - Patient discharged Performed By: #### L 500.2500, L100.0100 ####[facility] [address] [place], [address] RDW SD Normal 35.1-43.9 [facility] Comment on above: Result Comment: Canc elled via OM: Order cancelled - Patient discharged Performed By: #### L 500.2500, L100.0100 ####[facility] [address] [place], [address] WBC Normal 4.4-11.0 [facility] Comment on above: Result Comment: Canc elled via OM: Order cancelled - Patient discharged Performed By: #### L 500.2500, L100.0100 ####[facility] [address] [place], [address] Basic Metabolic Profile (BMP )on 03-28-2025 BUN Normal 4-19 [facility] Comment on above: Result Comment: Canc elled via OM: Order cancelled - Patient discharged Performed By: #### L 100.0100, L500.2500 ####[facility] [address] [place], [address] BUN/CRE Normal 10-20 [facility] Comment on above: Result Comment: Canc elled via OM: Order cancelled - Patient discharged Performed By: #### L 100.0100, L500.2500 ####[facility] [address] [place], [address] Calcium Normal 7.6-11.0 [facility] Comment on above: Result Comment: Canc elled via OM: Order cancelled - Patient discharged Performed By: #### L 100.0100, L500.2500 ####[facility] [address] [place], [address] CL Normal 98-108 [facility] Comment on above: Result Comment: Canc elled via OM: Order cancelled - Patient discharged Performed By: #### L 100.0100, L500.2500 ####[facility] [address] [place], [address] CO2 Normal 21.0-32.0 [facility] Comment on above: Result Comment: Canc elled via OM: Order cancelled - Patient discharged Performed By: #### L 100.0100, L500.2500 ####[facility] [address] [place], [address] CREAT,SERUM Normal 0.70-1.20 [facility] Comment on above: Result Comment: Canc elled via OM: Order cancelled - Patient discharged Performed By: #### L 100.0100, L500.2500 ####[facility] [address] [place], [address] eGFR Normal >60 [facility] Comment on above: Result Comment: Canc elled via OM: Order cancelled - Patient discharged Performed By: #### L 100.0100, L500.2500 ####[facility] [address] [place], [address] GAP Normal 5-15 [facility] Comment on above: Result Comment: Canc elled via OM: Order cancelled - Patient discharged Performed By: #### L 100.0100, L500.2500 ####[facility] [address] [place], [address] GLU Normal 70-99 [facility] Comment on above: Result Comment: Canc elled via OM: Order cancelled - Patient discharged Performed By: #### L 100.0100, L500.2500 ####[facility] [address] [place], [address] Potassium Normal 3.3-5.1 [facility] Comment on above: Result Comment: Canc elled via OM: Order cancelled - Patient discharged Performed By: #### L 100.0100, L500.2500 ####[facility] [address] [place], [address] Basic Metabolic Profile (BMP) Normal 133-145 [facility] Comment on above: Result Comment: Canc elled via OM: Order cancelled - Patient discharged Performed By: #### L 100.0100, L500.2500 ####[facility] [address] [place], [address] CBC W/Diff, Automatedon 07-2 -2024 Absolute Neut Normal 2.0-7.7 [facility] Comment on above: Result Comment: Canc elled via OM: Order cancelled - Patient discharged Performed By: #### L 100.0100, L500.2500 ####[facility] [address] [place], [address] HCT Normal 37-47 [facility] Comment on above: Result Comment: Canc elled via OM: Order cancelled - Patient discharged Performed By: #### L 100.0100, L500.2500 ####[facility] [address] [place], [address] HGB Normal 12.0-15.0 [facility] Comment on above: Result Comment: Canc elled via OM: Order cancelled - Patient discharged Performed By: #### L 100.0100, L500.2500 ####[facility] [address] [place], [address] MCH Normal 27.0-32.0 [facility] Comment on above: Result Comment: Canc elled via OM: Order cancelled - Patient discharged Performed By: #### L 100.0100, L500.2500 ####[facility] [address] [place], [address] MCHC Normal 32-36 [facility] Comment on above: Result Comment: Canc elled via OM: Order cancelled - Patient discharged Performed By: #### L 100.0100, L500.2500 ####[facility] [address] [place], [address] MCV Normal 81-99 [facility] Comment on above: Result Comment: Canc elled via OM: Order cancelled - Patient discharged Performed By: #### L 100.0100, L500.2500 ####[facility] [address] [place], [address] NEUT% Normal 47-70 [facility] Comment on above: Result Comment: Canc elled via OM: Order cancelled - Patient discharged Performed By: #### L 100.0100, L500.2500 ####[facility] [address] [place], [address] PLT Normal 150-450 [facility] Comment on above: Result Comment: Canc elled via OM: Order cancelled - Patient discharged Performed By: #### L 100.0100, L500.2500 ####[facility] [address] [place], [address] RBC Normal 4.2-5.4 [facility] Comment on above: Result Comment: Canc elled via OM: Order cancelled - Patient discharged Performed By: #### L 100.0100, L500.2500 ####[facility] [address] [place], [address] RDW CV Normal 11.6-14.6 [facility] Comment on above: Result Comment: Canc elled via OM: Order cancelled - Patient discharged Performed By: #### L 100.0100, L500.2500 ####[facility] [address] [place], [address] RDW SD Normal 35.1-43.9 [facility] Comment on above: Result Comment: Canc elled via OM: Order cancelled - Patient discharged Performed By: #### L 100.0100, L500.2500 ####[facility] [address] [place], [address] WBC Normal 4.4-11.0 [facility] Comment on above: Result Comment: Canc elled via OM: Order cancelled - Patient discharged Performed By: #### L 100.0100, L500.2500 ####[facility] [address] [place], [address] Basic Metabolic Profile (BMP )on 03-27-2025 BUN Normal 4-19 [facility] Comment on above: Result Comment: Canc elled via OM: Order cancelled - Patient discharged Performed By: #### L 500.2500, L100.0100 ####[facility] [address] [place], [address] BUN/CRE Normal 10-20 [facility] Comment on above: Result Comment: Canc elled via OM: Order cancelled - Patient discharged Performed By: #### L 500.2500, L100.0100 ####[facility] [address] [place], [address] Calcium Normal 7.6-11.0 [facility] Comment on above: Result Comment: Canc elled via OM: Order cancelled - Patient discharged Performed By: #### L 500.2500, L100.0100 ####[facility] [address] [place], [address] CL Normal 98-108 [facility] Comment on above: Result Comment: Canc elled via OM: Order cancelled - Patient discharged Performed By: #### L 500.2500, L100.0100 ####[facility] [address] [place], [address] CO2 Normal 21.0-32.0 [facility] Comment on above: Result Comment: Canc elled via OM: Order cancelled - Patient discharged Performed By: #### L 500.2500, L100.0100 ####[facility] [address] [place], [address] CREAT,SERUM Normal 0.70-1.20 [facility] Comment on above: Result Comment: Canc elled via OM: Order cancelled - Patient discharged Performed By: #### L 500.2500, L100.0100 ####[facility] [address] [place], [address] eGFR Normal >60 [facility] Comment on above: Result Comment: Canc elled via OM: Order cancelled - Patient discharged Performed By: #### L 500.2500, L100.0100 ####[facility] [address] [place], [address] GAP Normal 5-15 [facility] Comment on above: Result Comment: Canc elled via OM: Order cancelled - Patient discharged Performed By: #### L 500.2500, L100.0100 ####[facility] [address] [place], [address] GLU Normal 70-99 [facility] Comment on above: Result Comment: Canc elled via OM: Order cancelled - Patient discharged Performed By: #### L 500.2500, L100.0100 ####[facility] [address] [place], [address] Potassium Normal 3.3-5.1 [facility] Comment on above: Result Comment: Canc elled via OM: Order cancelled - Patient discharged Performed By: #### L 500.2500, L100.0100 ####[facility] [address] [place], [address] Basic Metabolic Profile (BMP) Normal 133-145 [facility] Comment on above: Result Comment: Canc elled via OM: Order cancelled - Patient discharged Performed By: #### L 500.2500, L100.0100 ####[facility] [address] [place], [address] CBC W/Diff, Automatedon 07-2 Absolute Neut Normal 2.0-7.7 [facility] Comment on above: Result Comment: Canc elled via OM: Order cancelled - Patient discharged Performed By: #### L 500.2500, L100.0100 ####[facility] [address] [place], [address] HCT Normal 37-47 [facility] Comment on above: Result Comment: Canc elled via OM: Order cancelled - Patient discharged Performed By: #### L 500.2500, L100.0100 ####[facility] [address] [place], [address] HGB Normal 12.0-15.0 [facility] Comment on above: Result Comment: Canc elled via OM: Order cancelled - Patient discharged Performed By: #### L 500.2500, L100.0100 ####[facility] [address] [place], [address] MCH Normal 27.0-32.0 [facility] Comment on above: Result Comment: Canc elled via OM: Order cancelled - Patient discharged Performed By: #### L 500.2500, L100.0100 ####[facility] [address] [place], [address] MCHC Normal 32-36 [facility] Comment on above: Result Comment: Canc elled via OM: Order cancelled - Patient discharged Performed By: #### L 500.2500, L100.0100 ####[facility] [address] [place], [address] MCV Normal 81-99 [facility] Comment on above: Result Comment: Canc elled via OM: Order cancelled - Patient discharged Performed By: #### L 500.2500, L100.0100 ####[facility] [address] [place], [address] NEUT% Normal 47-70 [facility] Comment on above: Result Comment: Canc elled via OM: Order cancelled - Patient discharged Performed By: #### L 500.2500, L100.0100 ####[facility] [address] [place], [address] PLT Normal 150-450 [facility] Comment on above: Result Comment: Canc elled via OM: Order cancelled - Patient discharged Performed By: #### L 500.2500, L100.0100 ####[facility] [address] [place], [address] RBC Normal 4.2-5.4 [facility] Comment on above: Result Comment: Canc elled via OM: Order cancelled - Patient discharged Performed By: #### L 500.2500, L100.0100 ####[facility] [address] [place], [address] RDW CV Normal 11.6-14.6 [facility] Comment on above: Result Comment: Canc elled via OM: Order cancelled - Patient discharged Performed By: #### L 500.2500, L100.0100 ####[facility] [address] [place], [address] RDW SD Normal 35.1-43.9 [facility] Comment on above: Result Comment: Canc elled via OM: Order cancelled - Patient discharged Performed By: #### L 500.2500, L100.0100 ####[facility] [address] [place], [address] WBC Normal 4.4-11.0 [facility] Comment on above: Result Comment: Canc elled via OM: Order cancelled - Patient discharged Performed By: #### L 500.2500, L100.0100 ####[facility] [address] [place], [address] Basic Metabolic Profile (BMP )on 03-26-2025 BUN Normal 4-19 [facility] Comment on above: Result Comment: Canc elled via OM: Order cancelled - Patient discharged Performed By: #### L 500.2500, L100.0100 ####[facility] [address] [place], [address] BUN/CRE Normal 10-20 [facility] Comment on above: Result Comment: Canc elled via OM: Order cancelled - Patient discharged Performed By: #### L 500.2500, L100.0100 ####[facility] [address] [place], [address] Calcium Normal 7.6-11.0 [facility] Comment on above: Result Comment: Canc elled via OM: Order cancelled - Patient discharged Performed By: #### L 500.2500, L100.0100 ####[facility] [address] [place], [address] CL Normal 98-108 [facility] Comment on above: Result Comment: Canc elled via OM: Order cancelled - Patient discharged Performed By: #### L 500.2500, L100.0100 ####[facility] [address] [place], [address] CO2 Normal 21.0-32.0 [facility] Comment on above: Result Comment: Canc elled via OM: Order cancelled - Patient discharged Performed By: #### L 500.2500, L100.0100 ####[facility] [address] [place], [address] CREAT,SERUM Normal 0.70-1.20 [facility] Comment on above: Result Comment: Canc elled via OM: Order cancelled - Patient discharged Performed By: #### L 500.2500, L100.0100 ####[facility] [address] [place], [address] eGFR Normal >60 [facility] Comment on above: Result Comment: Canc elled via OM: Order cancelled - Patient discharged Performed By: #### L 500.2500, L100.0100 ####[facility] [address] [place], [address] GAP Normal 5-15 [facility] Comment on above: Result Comment: Canc elled via OM: Order cancelled - Patient discharged Performed By: #### L 500.2500, L100.0100 ####[facility] [address] [place], [address] GLU Normal 70-99 [facility] Comment on above: Result Comment: Canc elled via OM: Order cancelled - Patient discharged Performed By: #### L 500.2500, L100.0100 ####[facility] [address] [place], [address] Potassium Normal 3.3-5.1 [facility] Comment on above: Result Comment: Canc elled via OM: Order cancelled - Patient discharged Performed By: #### L 500.2500, L100.0100 ####[facility] [address] [place], [address] Basic Metabolic Profile (BMP) Normal 133-145 [facility] Comment on above: Result Comment: Canc elled via OM: Order cancelled - Patient discharged Performed By: #### L 500.2500, L100.0100 ####[facility] [address] [place], [address] CBC W/Diff, Automatedon 07-2 Absolute Neut Normal 2.0-7.7 [facility] Comment on above: Result Comment: Canc elled via OM: Order cancelled - Patient discharged Performed By: #### L 500.2500, L100.0100 ####[facility] [address] [place], [address] HCT Normal 37-47 [facility] Comment on above: Result Comment: Canc elled via OM: Order cancelled - Patient discharged Performed By: #### L 500.2500, L100.0100 ####[facility] [address] [place], [address] HGB Normal 12.0-15.0 [facility] Comment on above: Result Comment: Canc elled via OM: Order cancelled - Patient discharged Performed By: #### L 500.2500, L100.0100 ####[facility] [address] [place], [address] MCH Normal 27.0-32.0 [facility] Comment on above: Result Comment: Canc elled via OM: Order cancelled - Patient discharged Performed By: #### L 500.2500, L100.0100 ####[facility] [address] [place], [address] MCHC Normal 32-36 [facility] Comment on above: Result Comment: Canc elled via OM: Order cancelled - Patient discharged Performed By: #### L 500.2500, L100.0100 ####[facility] [address] [place], [address] MCV Normal 81-99 [facility] Comment on above: Result Comment: Canc elled via OM: Order cancelled - Patient discharged Performed By: #### L 500.2500, L100.0100 ####[facility] [address] [place], [address] NEUT% Normal 47-70 [facility] Comment on above: Result Comment: Canc elled via OM: Order cancelled - Patient discharged Performed By: #### L 500.2500, L100.0100 ####[facility] [address] [place], [address] PLT Normal 150-450 [facility] Comment on above: Result Comment: Canc elled via OM: Order cancelled - Patient discharged Performed By: #### L 500.2500, L100.0100 ####[facility] [address] [place], [address] RBC Normal 4.2-5.4 [facility] Comment on above: Result Comment: Canc elled via OM: Order cancelled - Patient discharged Performed By: #### L 500.2500, L100.0100 ####[facility] [address] [place], [address] RDW CV Normal 11.6-14.6 [facility] Comment on above: Result Comment: Canc elled via OM: Order cancelled - Patient discharged Performed By: #### L 500.2500, L100.0100 ####[facility] [address] [place], [address] RDW SD Normal 35.1-43.9 [facility] Comment on above: Result Comment: Canc elled via OM: Order cancelled - Patient discharged Performed By: #### L 500.2500, L100.0100 ####[facility] [address] [place], [address] WBC Normal 4.4-11.0 [facility] Comment on above: Result Comment: Canc elled via OM: Order cancelled - Patient discharged Performed By: #### L 500.2500, L100.0100 ####[facility] [address] [place], [address] Absolute lymphocyte countOrd ered By: Melba Hartmann on 03-25-2025 Lymphocytes Auto (Unsp spec) [#/Vol] 2.04 10*3/uL 0.83-4.51 [facility] Anion gap in Serum or Plasma Ordered By: Melba Mikhailjanene on 03-25-2025 Anion gap [Moles/Vol] 12 mmol/L 5-15 [facility] Automated lymphocyte count a s percentage of total leukocytesOrdered By: Melba Elizondojanene on 03-25-2025 Lymphocytes/100 WBC Auto (Unsp spec) 26.3 % 19-41 [facility] BUN/creatinine ratioOrdered By: Melbanereida Hartmann on 03-25-2025 Urea nitrogen/Creatinine [Mass ratio] 22.1 mg/mg High 10-20 [facility] Basic Metabolic Profile (BMP )on 03-25-2025 BUN/CRE 22.1 RATIO High - [facility] Comment on above: Performed By: #### L 500.2500, L100.0100 ####[facility] [address] [place], [address] Calcium [Mass/Vol] 10.6 mg/dL Normal 7.6-11.0 [facility] Comment on above: Performed By: #### L 500.2500, L100.0100 ####[facility] [address] [place], [address] Chloride [Moles/Vol] 101 mmol/L Normal 98-108 [facility] Comment on above: Performed By: #### L 500.2500, L100.0100 ####[facility] [address] [place], [address] CO2 [Moles/Vol] 26.0 mmol/L Normal 21.0-32.0 [facility] Comment on above: Performed By: #### L 500.2500, L100.0100 ####[facility] [address] [place], [address] Creatinine [Mass/Vol] 1.14 mg/dL Normal 0.70-1.20 [facility] Comment on above: Performed By: #### L 500.2500, L100.0100 ####[facility] [address] [place], [address] ECRCL 38.25 ml/min Low 50-250 [facility] Comment on above: Performed By: #### L 500.2500, L100.0100 ####[facility] [address] [place], [address] GAP 12 Normal 5-15 [facility] Comment on above: Performed By: #### L 500.2500, L100.0100 ####[facility] [address] [place], [address] GFR/1.73 sq M.predicted among non-blacks MDRD (S/P/Bld) [Vol rate/Area] 48 mL/min/{1.73_m2} Low >60 [facility] Comment on above: Result Comment: mL/m in/1.73m2 CKD-EPI Creatinine Equation (2020) Performed By: #### L 500.2500, L100.0100 ####[facility] [address] [place], [address] Glucose [Mass/Vol] 123 mg/dL High 70-99 [facility] Comment on above: Performed By: #### L 500.2500, L100.0100 ####[facility] [address] [place], [address] Potassium [Moles/Vol] 4.8 mmol/L Normal 3.3-5.1 [facility] Comment on above: Performed By: #### L 500.2500, L100.0100 ####[facility] [address] [place], [address] Sodium [Moles/Vol] 139 mmol/L Normal 133-145 [facility] Comment on above: Performed By: #### L 500.2500, L100.0100 ####[facility] [address] [place], [address] Urea nitrogen [Mass/Vol] 25 mg/dL High 4-19 [facility] Comment on above: Performed By: #### L 500.2500, L100.0100 ####[facility] [address] [place], [address] Basophil percentageOrdered B y: Melba Hartmann on 03-25-2025 Basophils/100 WBC (Bld) 0.4 % 0-1 [facility] Bedside Glucoseon 03-25-2025 FINGERSTICK GLU 193 mg/dL High 74-106 [facility] Comment on above: Result Comment: KATARINA GEMENT OF PATIENT CARE PER NURSING PROTOCOL Performed By: #### L 501.080 ####[facility] [address] [place], [address] FINGERSTICK GLU 164 mg/dL High 74-106 [facility] Comment on above: Result Comment: KATARINA GEMENT OF PATIENT CARE PER NURSING PROTOCOL Performed By: #### L 501.080 ####[facility] [address] [place], [address] FINGERSTICK GLU 124 mg/dL High -106 [facility] Comment on above: Result Comment: KATARINA GEMENT OF PATIENT CARE PER NURSING PROTOCOL Performed By: #### L 501.080 ####[facility] [address] [place], [address] CBC W/Diff, Automatedon 072 Absolute Lymph 2.04 X10 3/uL Normal 0.83-4.51 [facility] Comment on above: Performed By: #### L 500.2500, L100.0100 ####[facility] [address] [place], [address] Absolute Neut 4.8 X10 3/uL Normal 2.0-7.7 [facility] Comment on above: Performed By: #### L 500.2500, L100.0100 ####[facility] [address] [place], [address] Basophils/100 WBC (Bld) 0.4 % Normal 0-1 [facility] Comment on above: Performed By: #### L 500.2500, L100.0100 ####[facility] [address] [place], [address] Eosinophils/100 WBC (Bld) 0.8 % Normal 0-5 [facility] Comment on above: Performed By: #### L 500.2500, L100.0100 ####[facility] [address] [place], [address] Erythrocyte distribution width (RBC) [Ratio] 16.3 % High 11.6-14.6 [facility] Comment on above: Performed By: #### L 500.2500, L100.0100 ####[facility] [address] [place], [address] Hematocrit (Bld) [Volume fraction] 29.7 % Low 37-47 [facility] Comment on above: Performed By: #### L 500.2500, L100.0100 ####[facility] [address] [place], [address] Hemoglobin (Bld) [Mass/Vol] 9.0 g/dL Low 12.0-15.0 [facility] Comment on above: Performed By: #### L 500.2500, L100.0100 ####[facility] [address] [place], [address] IG% 0.800 Normal 0.0-0.9 [facility] Comment on above: Result Comment: IG% - Immature Granulocytes (promyelocytes, myelocytes andmetamyelocytes) > 1% indicates that a LEFT SHIFT is Present. Performed By: #### L 500.2500, L100.0100 ####[facility] [address] [place], [address] Lymphocytes/100 WBC (Bld) 26.3 % Normal 19-41 [facility] Comment on above: Performed By: #### L 500.2500, L100.0100 ####[facility] [address] [place], [address] MCH (RBC) [Entitic mass] 27.2 pg Normal 27.0-32.0 [facility] Comment on above: Performed By: #### L 500.2500, L100.0100 ####[facility] [address] [place], [address] MCHC (RBC) [Mass/Vol] 30.3 g/dL Low 32-36 [facility] Comment on above: Performed By: #### L 500.2500, L100.0100 ####[facility] [address] [place], [address] MCV (RBC) [Entitic vol] 89.7 fL Normal 81-99 [facility] Comment on above: Performed By: #### L 500.2500, L100.0100 ####[facility] [address] [place], [address] Monocytes/100 WBC (Bld) 10.4 % High 0-10 [facility] Comment on above: Performed By: #### L 500.2500, L100.0100 ####[facility] [address] [place], [address] Neutrophils/100 WBC (Bld) 61.3 % Normal 47-70 [facility] Comment on above: Performed By: #### L 500.2500, L100.0100 ####[facility] [address] [place], [address] Nucleated RBC (Bld) [#/Vol] 0.3 10*3/uL Normal 0-5 [facility] Comment on above: Performed By: #### L 500.2500, L100.0100 ####[facility] [address] [place], [address] Platelet mean volume (Bld) [Entitic vol] 10.8 fL Normal 6.2-12.0 [facility] Comment on above: Performed By: #### L 500.2500, L100.0100 ####[facility] [address] [place], [address] Platelets (Bld) [#/Vol] 251 10*3/uL Normal 150-450 [facility] Comment on above: Performed By: #### L 500.2500, L100.0100 ####[facility] [address] [place], [address] RBC (Bld) [#/Vol] 3.31 10*6/uL Low 4.2-5.4 [facility] Comment on above: Performed By: #### L 500.2500, L100.0100 ####[facility] [address] [place], [address] RDW SD 53.7 fl High 35.1-43.9 [facility] Comment on above: Performed By: #### L 500.2500, L100.0100 ####[facility] [address] [place], [address] WBC (Bld) [#/Vol] 7.8 10*3/uL Normal 4.4-11.0 [facility] Comment on above: Performed By: #### L 500.2500, L100.0100 ####[facility] [address] [place], [address] Carbon dioxide, total [Moles /volume] in Central venous bloodOrdered By: Melba Hartmann on 03-25-2025 CO2 [Moles/Vol] 26.0 mmol/L 21.0-32.0 [facility] Chloride assayOrdered By: Ewelina Hartmann on 03-25-2025 Chloride [Moles/Vol] 101 mmol/L 98-108 [facility] Discharge Instructionon 03-01 Discharge Instruction Normal [facility] Eosinophil percentageOrdered By: Melba Hartmann on 03-25-2025 Eosinophils/100 WBC (Bld) 0.8 % 0-5 [facility] Erythrocyte distribution wid th ratioOrdered By: Melba Hartmann on 03-25-2025 Erythrocyte distribution width (RBC) [Ratio] 16.3 % High 11.6-14.6 [facility] Erythrocyte distribution wid th standard deviationOrdered By: Melba Hartmann on 03-25-2025 Erythrocyte distribution width (RBC) [Ratio] 53.7 fl High 35.1-43.9 [facility] Glomerular filtration rate ( GFR) estimation/1.73 sq m using serum, plasma, or whole bOrdered By: Melba Hartmann on 03-25-2025 GFR/1.73 sq M.predicted among non-blacks MDRD (S/P/Bld) [Vol rate/Area] 48 mL/min/{1.73_m2} Low >60 [facility] deOrdered By: Melba Hartmann 03-25-2025 Glucose [Mass/Vol] 193 mg/dL High 74-106 [facility] Hematocrit Auto (Bld) [Volum e fraction]Ordered By: Melba Hartmann 03-25-2025 Hematocrit (Bld) [Volume fraction] 29.7 % Low 37-47 [facility] Hemoglobin measurementOrdere d By: Melba Hartmann 03-25-2025 Hemoglobin (Bld) [Mass/Vol] 9.0 g/dL Low 12.0-15.0 [facility] Immature granulocytes/100 WB C Auto (Bld)Ordered By: Melba Hartmann 03-25-2025 Immature granulocytes/100 WBC (Bld) 0.800 % 0.0-0.9 [facility] MCV (mean corpuscular volume ) determinationOrdered By: Melba Hartmann 03-25-2025 MCV (RBC) [Entitic vol] 89.7 fL 81-99 [facility] Mean corpuscular hemoglobin (MCH) determinationOrdered By: Melba Hartmann 03-25-2025 MCH (RBC) [Entitic mass] 27.2 pg 27.0-32.0 [facility] Monocyte percentageOrdered B y: Melba Hartmann 03-25-2025 Monocytes/100 WBC (Bld) 10.4 % High 0-10 [facility] Neutrophil percentageOrdered By: Melba Hartmann on 03-25-2025 Neutrophils/100 WBC (Bld) 61.3 % 47-70 [facility] Platelet countOrdered By: Ewelina Hartmann on 03-25-2025 Platelets (Bld) [#/Vol] 251 10*3/uL 150-450 [facility] Potassium measurement (mass/ volume)Ordered By: Melba Hartmann on 03-25-2025 Potassium (Unsp spec) [Mass/Vol] 4.8 mmol/L 3.3-5.1 [facility] RBC Auto (Bld) [#/Vol]Ordere d By: Melba Hartmann on 03-25-2025 RBC (Bld) [#/Vol] 3.31 10*6/uL Low 4.2-5.4 [facility] Serum creatinine measurement (mass/volume)Ordered By: Melba Hartamnn on 03-25-2025 Creatinine [Mass/Vol] 1.14 mg/dL 0.70-1.20 [facility] Serum glucose measurement (m ass/volume)Ordered By: Melba Hartmann on 03-25-2025 Glucose [Mass/Vol] 123 mg/dL High 70-99 [facility] Serum or plasma calcium melanie urement (mass/volume)Ordered By: Melba Hartmann on 03-25-2025 Calcium [Mass/Vol] 10.6 mg/dL 7.6-11.0 [facility] Serum or plasma urea nitroge n measurement (mass/volume)Ordered By: Melba Hartmann on 03-25-2025 Urea nitrogen [Mass/Vol] 25 mg/dL High 4-19 [facility] Sodium levelOrdered By: Melba Hartmann on 03-25-2025 Sodium [Moles/Vol] 139 mmol/L 133-145 [facility] White blood cell (WBC) count Ordered By: Melba Hartmann on 03-25-2025 WBC (Bld) [#/Vol] 7.8 10*3/uL 4.4-11.0 [facility] Basic Metabolic Profile (BMP )on 03-24-2025 BUN/CRE 19.7 RATIO Normal 10-20 [facility] Comment on above: Performed By: #### L 100.0100, L500.2500 ####[facility] [address] [place], [address] Calcium [Mass/Vol] 10.5 mg/dL Normal 7.6-11.0 [facility] Comment on above: Performed By: #### L 100.0100, L500.2500 ####[facility] [address] [place], [address] Chloride [Moles/Vol] 97 mmol/L Low 98-108 [facility] Comment on above: Performed By: #### L 100.0100, L500.2500 ####[facility] [address] [place], [address] CO2 [Moles/Vol] 27.0 mmol/L Normal 21.0-32.0 [facility] Comment on above: Performed By: #### L 100.0100, L500.2500 ####[facility] [address] [place], [address] Creatinine [Mass/Vol] 1.21 mg/dL High 0.70-1.20 [facility] Comment on above: Performed By: #### L 100.0100, L500.2500 ####[facility] [address] [place], [address] ECRCL 35.44 ml/min Low 50-250 [facility] Comment on above: Performed By: #### L 100.0100, L500.2500 ####[facility] [address] [place], [address] GAP 11 Normal 5-15 [facility] Comment on above: Performed By: #### L 100.0100, L500.2500 ####[facility] [address] [place], [address] GFR/1.73 sq M.predicted among non-blacks MDRD (S/P/Bld) [Vol rate/Area] 45 mL/min/{1.73_m2} Low >60 [facility] Comment on above: Result Comment: mL/m in/1.73m2 CKD-EPI Creatinine Equation (2020) Performed By: #### L 100.0100, L500.2500 ####[facility] [address] [place], [address] Glucose [Mass/Vol] 165 mg/dL High 70-99 [facility] Comment on above: Performed By: #### L 100.0100, L500.2500 ####[facility] [address] [place], [address] Potassium [Moles/Vol] 4.8 mmol/L Normal 3.3-5.1 [facility] Comment on above: Performed By: #### L 100.0100, L500.2500 ####[facility] [address] [place], [address] Sodium [Moles/Vol] 135 mmol/L Normal 133-145 [facility] Comment on above: Performed By: #### L 100.0100, L500.2500 ####[facility] [address] [place], [address] Urea nitrogen [Mass/Vol] 24 mg/dL High 4-19 [facility] Comment on above: Performed By: #### L 100.0100, L500.2500 ####[facility] [address] [place], [address] Bedside Glucoseon 03-24-2025 FINGERSTICK GLU 294 mg/dL High 74-106 [facility] Comment on above: Result Comment: KATARINA GEMENT OF PATIENT CARE PER NURSING PROTOCOL Performed By: #### L 501.080 ####[facility] [address] [place], [address] FINGERSTICK GLU 311 mg/dL High 74-106 [facility] Comment on above: Result Comment: KATARINA GEMENT OF PATIENT CARE PER NURSING PROTOCOL Performed By: #### L 501.080 ####[facility] [address] [place], [address] FINGERSTICK GLU 132 mg/dL High 74-106 [facility] Comment on above: Result Comment: KATARINA GEMENT OF PATIENT CARE PER NURSING PROTOCOL Performed By: #### L 501.080 ####[facility] [address] [place], [address] FINGERSTICK GLU 156 mg/dL High 74-106 [facility] Comment on above: Result Comment: KATARINA GEMENT OF PATIENT CARE PER NURSING PROTOCOL Performed By: #### L 501.080 ####[facility] [address] [place], [address] CBC W/Diff, Automatedon 07-2 -2024 Absolute Lymph 1.88 X10 3/uL Normal 0.83-4.51 [facility] Comment on above: Performed By: #### L 100.0100, L500.2500 ####[facility] [address] [place], [address] Absolute Neut 6.1 X10 3/uL Normal 2.0-7.7 [facility] Comment on above: Performed By: #### L 100.0100, L500.2500 ####[facility] [address] [place], [address] Basophils/100 WBC (Bld) 0.3 % Normal 0-1 [facility] Comment on above: Performed By: #### L 100.0100, L500.2500 ####[facility] [address] [place], [address] Eosinophils/100 WBC (Bld) 0.8 % Normal 0-5 [facility] Comment on above: Performed By: #### L 100.0100, L500.2500 ####[facility] [address] [place], [address] Erythrocyte distribution width (RBC) [Ratio] 16.4 % High 11.6-14.6 [facility] Comment on above: Performed By: #### L 100.0100, L500.2500 ####[facility] [address] [place], [address] Hematocrit (Bld) [Volume fraction] 29.7 % Low 37-47 [facility] Comment on above: Performed By: #### L 100.0100, L500.2500 ####[facility] [address] [place], [address] Hemoglobin (Bld) [Mass/Vol] 9.1 g/dL Low 12.0-15.0 [facility] Comment on above: Performed By: #### L 100.0100, L500.2500 ####[facility] [address] [place], [address] IG% 0.300 Normal 0.0-0.9 [facility] Comment on above: Result Comment: IG% - Immature Granulocytes (promyelocytes, myelocytes andmetamyelocytes) > 1% indicates that a LEFT SHIFT is Present. Performed By: #### L 100.0100, L500.2500 ####[facility] [address] [place], [address] Lymphocytes/100 WBC (Bld) 21.3 % Normal 19-41 [facility] Comment on above: Performed By: #### L 100.0100, L500.2500 ####[facility] [address] [place], [address] MCH (RBC) [Entitic mass] 26.6 pg Low 27.0-32.0 [facility] Comment on above: Performed By: #### L 100.0100, L500.2500 ####[facility] [address] [place], [address] MCHC (RBC) [Mass/Vol] 30.6 g/dL Low 32-36 [facility] Comment on above: Performed By: #### L 100.0100, L500.2500 ####[facility] [address] [place], [address] MCV (RBC) [Entitic vol] 86.8 fL Normal 81-99 [facility] Comment on above: Performed By: #### L 100.0100, L500.2500 ####[facility] [address] [place], [address] Monocytes/100 WBC (Bld) 8.5 % Normal 0-10 [facility] Comment on above: Performed By: #### L 100.0100, L500.2500 ####[facility] [address] [place], [address] Neutrophils/100 WBC (Bld) 68.8 % Normal 47-70 [facility] Comment on above: Performed By: #### L 100.0100, L500.2500 ####[facility] [address] [place], [address] Nucleated RBC (Bld) [#/Vol] 0 10*3/uL Normal 0-5 [facility] Comment on above: Performed By: #### L 100.0100, L500.2500 ####[facility] [address] [place], [address] Platelet mean volume (Bld) [Entitic vol] 10.7 fL Normal 6.2-12.0 [facility] Comment on above: Performed By: #### L 100.0100, L500.2500 ####[facility] [address] [place], [address] Platelets (Bld) [#/Vol] 288 10*3/uL Normal 150-450 [facility] Comment on above: Performed By: #### L 100.0100, L500.2500 ####[facility] [address] [place], [address] RBC (Bld) [#/Vol] 3.42 10*6/uL Low 4.2-5.4 [facility] Comment on above: Performed By: #### L 100.0100, L500.2500 ####[facility] [address] [place], [address] RDW SD 52.3 fl High 35.1-43.9 [facility] Comment on above: Performed By: #### L 100.0100, L500.2500 ####[facility] [address] [place], [address] WBC (Bld) [#/Vol] 8.8 10*3/uL Normal 4.4-11.0 [facility] Comment on above: Performed By: #### L 100.0100, L500.2500 ####[facility] [address] [place], [address] Urine Cultureon 03-24-2025 URC Normal [facility] Comment on above: Performed By: #### M 100.2200 ####[facility] [address] [place], [address] Basic Metabolic Profile (BMP )on 03-23-2025 BUN/CRE 15.2 RATIO Normal 10-20 [facility] Comment on above: Performed By: #### L 500.2500, L100.0100 ####[facility] [address] [place], [address] Calcium [Mass/Vol] 10.2 mg/dL Normal 7.6-11.0 [facility] Comment on above: Performed By: #### L 500.2500, L100.0100 ####[facility] [address] [place], [address] Chloride [Moles/Vol] 98 mmol/L Normal 98-108 [facility] Comment on above: Performed By: #### L 500.2500, L100.0100 ####[facility] [address] [place], [address] CO2 [Moles/Vol] 26.0 mmol/L Normal 21.0-32.0 [facility] Comment on above: Performed By: #### L 500.2500, L100.0100 ####[facility] [address] [place], [address] Creatinine [Mass/Vol] 1.25 mg/dL High 0.70-1.20 [facility] Comment on above: Performed By: #### L 500.2500, L100.0100 ####[facility] [address] [place], [address] ECRCL 33.86 ml/min Low 50-250 [facility] Comment on above: Performed By: #### L 500.2500, L100.0100 ####[facility] [address] [place], [address] GAP 8 Normal 5-15 [facility] Comment on above: Performed By: #### L 500.2500, L100.0100 ####[facility] [address] [place], [address] GFR/1.73 sq M.predicted among non-blacks MDRD (S/P/Bld) [Vol rate/Area] 43 mL/min/{1.73_m2} Low >60 [facility] Comment on above: Result Comment: mL/m in/1.73m2 CKD-EPI Creatinine Equation (2020) Performed By: #### L 500.2500, L100.0100 ####[facility] [address] [place], [address] Glucose [Mass/Vol] 198 mg/dL High 70-99 [facility] Comment on above: Performed By: #### L 500.2500, L100.0100 ####[facility] [address] [place], [address] Potassium [Moles/Vol] 5.8 mmol/L High 3.3-5.1 [facility] Comment on above: Performed By: #### L 500.2500, L100.0100 ####[facility] [address] [place], [address] Sodium [Moles/Vol] 132 mmol/L Low 133-145 [facility] Comment on above: Performed By: #### L 500.2500, L100.0100 ####[facility] [address] [place], [address] Urea nitrogen [Mass/Vol] 19 mg/dL Normal 4-19 [facility] Comment on above: Performed By: #### L 500.2500, L100.0100 ####[facility] [address] [place], [address] Bedside Glucoseon 03-23-2025 FINGERSTICK GLU 257 mg/dL High 74-106 [facility] Comment on above: Result Comment: KATARINA GEMENT OF PATIENT CARE PER NURSING PROTOCOL Performed By: #### L 501.080 ####[facility] [address] [place], [address] FINGERSTICK GLU 251 mg/dL High 74-106 [facility] Comment on above: Result Comment: KATARINA GEMENT OF PATIENT CARE PER NURSING PROTOCOL Performed By: #### L 501.080 ####[facility] [address] [place], [address] FINGERSTICK GLU 232 mg/dL High 74-106 [facility] Comment on above: Result Comment: KATARINA GEMENT OF PATIENT CARE PER NURSING PROTOCOL Performed By: #### L 501.080 ####[facility] [address] [place], [address] FINGERSTICK GLU 228 mg/dL High 74-106 [facility] Comment on above: Result Comment: KATARINA GEMENT OF PATIENT CARE PER NURSING PROTOCOL Performed By: #### L 501.080 ####[facility] [address] [place], [address] CBC W/Diff, Automatedon 07-2 Absolute Lymph 1.21 X10 3/uL Normal 0.83-4.51 [facility] Comment on above: Performed By: #### L 500.2500, L100.0100 ####[facility] [address] [place], [address] Absolute Neut 5.6 X10 3/uL Normal 2.0-7.7 [facility] Comment on above: Performed By: #### L 500.2500, L100.0100 ####[facility] [address] [place], [address] Basophils/100 WBC (Bld) 0.1 % Normal 0-1 [facility] Comment on above: Performed By: #### L 500.2500, L100.0100 ####[facility] [address] [place], [address] Eosinophils/100 WBC (Bld) 0.0 % Normal 0-5 [facility] Comment on above: Performed By: #### L 500.2500, L100.0100 ####[facility] [address] [place], [address] Erythrocyte distribution width (RBC) [Ratio] 16.0 % High 11.6-14.6 [facility] Comment on above: Performed By: #### L 500.2500, L100.0100 ####[facility] [address] [place], [address] Hematocrit (Bld) [Volume fraction] 28.0 % Low 37-47 [facility] Comment on above: Performed By: #### L 500.2500, L100.0100 ####[facility] [address] [place], [address] Hemoglobin (Bld) [Mass/Vol] 8.8 g/dL Low 12.0-15.0 [facility] Comment on above: Performed By: #### L 500.2500, L100.0100 ####[facility] [address] [place], [address] IG% 0.500 Normal 0.0-0.9 [facility] Comment on above: Result Comment: IG% - Immature Granulocytes (promyelocytes, myelocytes andmetamyelocytes) > 1% indicates that a LEFT SHIFT is Present. Performed By: #### L 500.2500, L100.0100 ####[facility] [address] [place], [address] Lymphocytes/100 WBC (Bld) 16.5 % Low 19-41 [facility] Comment on above: Performed By: #### L 500.2500, L100.0100 ####[facility] [address] [place], [address] MCH (RBC) [Entitic mass] 27.0 pg Normal 27.0-32.0 [facility] Comment on above: Performed By: #### L 500.2500, L100.0100 ####[facility] [address] [place], [address] MCHC (RBC) [Mass/Vol] 31.4 g/dL Low 32-36 [facility] Comment on above: Performed By: #### L 500.2500, L100.0100 ####[facility] [address] [place], [address] MCV (RBC) [Entitic vol] 85.9 fL Normal 81-99 [facility] Comment on above: Performed By: #### L 500.2500, L100.0100 ####[facility] [address] [place], [address] Monocytes/100 WBC (Bld) 6.8 % Normal 0-10 [facility] Comment on above: Performed By: #### L 500.2500, L100.0100 ####[facility] [address] [place], [address] Neutrophils/100 WBC (Bld) 76.1 % High 47-70 [facility] Comment on above: Performed By: #### L 500.2500, L100.0100 ####[facility] [address] [place], [address] Nucleated RBC (Bld) [#/Vol] 0 10*3/uL Normal 0-5 [facility] Comment on above: Performed By: #### L 500.2500, L100.0100 ####[facility] [address] [place], [address] Platelet mean volume (Bld) [Entitic vol] 10.7 fL Normal 6.2-12.0 [facility] Comment on above: Performed By: #### L 500.2500, L100.0100 ####[facility] [address] [place], [address] Platelets (Bld) [#/Vol] 274 10*3/uL Normal 150-450 [facility] Comment on above: Performed By: #### L 500.2500, L100.0100 ####[facility] [address] [place], [address] RBC (Bld) [#/Vol] 3.26 10*6/uL Low 4.2-5.4 [facility] Comment on above: Performed By: #### L 500.2500, L100.0100 ####[facility] [address] [place], [address] RDW SD 50.8 fl High 35.1-43.9 [facility] Comment on above: Performed By: #### L 500.2500, L100.0100 ####[facility] [address] [place], [address] WBC (Bld) [#/Vol] 7.4 10*3/uL Normal 4.4-11.0 [facility] Comment on above: Performed By: #### L 500.2500, L100.0100 ####[facility] [address] [place], [address] Potassiumon 03-23-2025 Potassium [Moles/Vol] 5.2 mmol/L High 3.3-5.1 [facility] Comment on above: Performed By: #### L 501.5600 ####[facility] [address] [place], [address] Bedside Glucoseon 03-22-2025 FINGERSTICK GLU 243 mg/dL High [address] [place] [address] Comment on above: Result Comment: KATARINA GEMENT OF PATIENT CARE PER NURSING PROTOCOL Performed By: #### L 501.080 ####[facility] [address] [place], [address] FINGERSTICK GLU 232 mg/dL High [address] [place] [address] Comment on above: Result Comment: KATARINA GEMENT OF PATIENT CARE PER NURSING PROTOCOL Performed By: #### L 501.080 ####[facility] [address] [place], [address] FINGERSTICK GLU 131 mg/dL High [address] [place] [address] Comment on above: Result Comment: KATARINA GEMENT OF PATIENT CARE PER NURSING PROTOCOL Performed By: #### L 501.080 ####[facility] [address] [place], [address] FINGERSTICK GLU 139 mg/dL High [address] [place] [address] Comment on above: Result Comment: KATARINA GEMENT OF PATIENT CARE PER NURSING PROTOCOL Performed By: #### L 501.080 ####[facility] [address] [place], [address] Bilirubin, totalOrdered By: Abigail Foster on 03-22-2025 Bilirubin [Mass/Vol] 0.21 mg/dL 0.00-1.30 [facility] Blood manual differential co mment interpretation (narrative result)Ordered By: Abigail Foster on 03-22-2025 Manual differential comment Daniel (Bld) [Interp] SCANNED [facility] CBC W/Diff, Automatedon 03-01 SMEAR COMMENT SCANNED Normal [facility] Comment on above: Performed By: #### L 100.0100, L500.4050 ####[facility] [address] [place], [address] Comprehensive Metabolic Prof ilon 03-22-2025 Albumin [Mass/Vol] 3.0 g/dL Low 3.4-4.8 [facility] Comment on above: Performed By: #### L 100.0100, L500.4050 ####[facility] [address] [place], [address] Albumin/Globulin [Mass ratio] 1.0 {ratio} Normal 0.9-2.4 [facility] Comment on above: Performed By: #### L 100.0100, L500.4050 ####[facility] [address] [place], [address] ALK PHOS 68 U/L Normal 35-104 [facility] Comment on above: Performed By: #### L 100.0100, L500.4050 ####[facility] [address] [place], [address] ALT [Catalytic activity/Vol] 8 U/L Normal <=34 [facility] Comment on above: Performed By: #### L 100.0100, L500.4050 ####[facility] [address] [place], [address] AST [Catalytic activity/Vol] 19 U/L Normal <=31 [facility] Comment on above: Performed By: #### L 100.0100, L500.4050 ####[facility] [address] [place], [address] Bilirubin [Mass/Vol] 0.21 mg/dL Normal 0.00-1.30 [facility] Comment on above: Performed By: #### L 100.0100, L500.4050 ####[facility] [address] [place], [address] BUN/CRE 18.4 RATIO Normal 10-20 [facility] Comment on above: Performed By: #### L 100.0100, L500.4050 ####[facility] [address] [place], [address] Calcium [Mass/Vol] 10.0 mg/dL Normal 7.6-11.0 [facility] Comment on above: Performed By: #### L 100.0100, L500.4050 ####[facility] [address] [place], [address] Chloride [Moles/Vol] 100 mmol/L Normal 98-108 [facility] Comment on above: Performed By: #### L 100.0100, L500.4050 ####[facility] [address] [place], [address] CO2 [Moles/Vol] 25.4 mmol/L Normal 21.0-32.0 [facility] Comment on above: Performed By: #### L 100.0100, L500.4050 ####[facility] [address] [place], [address] Creatinine [Mass/Vol] 0.93 mg/dL Normal 0.70-1.20 [facility] Comment on above: Performed By: #### L 100.0100, L500.4050 ####[facility] [address] [place], [address] ECRCL 44.58 ml/min Low 50-250 [facility] Comment on above: Performed By: #### L 100.0100, L500.4050 ####[facility] [address] [place], [address] GAP 10 Normal 5-15 [facility] Comment on above: Performed By: #### L 100.0100, L500.4050 ####[facility] [address] [place], [address] GFR/1.73 sq M.predicted among non-blacks MDRD (S/P/Bld) [Vol rate/Area] 62 mL/min/{1.73_m2} Normal >60 [facility] Comment on above: Result Comment: mL/m in/1.73m2 CKD-EPI Creatinine Equation (2020) Performed By: #### L 100.0100, L500.4050 ####[facility] [address] [place], [address] Globulin (S) [Mass/Vol] 3.1 g/dL Normal 2.2-4.2 [facility] Comment on above: Performed By: #### L 100.0100, L500.4050 ####[facility] [address] [place], [address] Glucose [Mass/Vol] 144 mg/dL High 70-99 [facility] Comment on above: Performed By: #### L 100.0100, L500.4050 ####[facility] [address] [place], [address] Potassium [Moles/Vol] 4.2 mmol/L Normal 3.3-5.1 [facility] Comment on above: Performed By: #### L 100.0100, L500.4050 ####[facility] [address] [place], [address] Sodium [Moles/Vol] 135 mmol/L Normal 133-145 [facility] Comment on above: Performed By: #### L 100.0100, L500.4050 ####[facility] [address] [place], [address] T PROT 6.1 g/dL Normal 5.9-8.4 [facility] Comment on above: Performed By: #### L 100.0100, L500.4050 ####[facility] [address] [place], [address] Urea nitrogen [Mass/Vol] 17 mg/dL Normal 4-19 [facility] Comment on above: Performed By: #### L 100.0100, L500.4050 ####[facility] [address] [place], [address] No Panel InformationOrdered By: Abigail Foster on 03-22-2025 19 U/L <32 [facility] Serum globulin measurementOr dered By: Abigail Foster 03-22-2025 Globulin (S) [Mass/Vol] 3.1 g/dL 2.2-4.2 [facility] Serum or plasma alanine kelley otransferase (ALT) measurementOrdered By: Abigail Kristin 03-22-2025 ALT [Catalytic activity/Vol] 8 U/L <35 [facility] Serum or plasma albumin melanie urement (mass/volume)Ordered By: Abigail Foster 03-22-2025 Albumin [Mass/Vol] 3.0 g/dL Low 3.4-4.8 [facility] Serum or plasma albumin/glob ulin mass ratioOrdered By: Abigail Kristin on 03-22-2025 Albumin/Globulin [Mass ratio] 1.0 {ratio} 0.9-2.4 [facility] Serum or plasma alkaline lissa sphatase measurementOrdered By: Abigail Foster 03-22-2025 ALP [Catalytic activity/Vol] 68 U/L 35-104 [facility] Total proteinOrdered By: Beena Foster on 03-22-2025 Protein [Mass/Vol] 6.1 g/dL 5.9-8.4 [facility] Abdomen/Pelvis W IV Cont ONL Yon 03-21-2025 Abdomen/Pelvis W IV Cont ONLY Normal [facility] Absolute lymphocyte countOrd ered By: Noé Currie on 03-21-2025 Lymphocytes Auto (Unsp spec) [#/Vol] 2.26 10*3/uL 0.83-4.51 [facility] Anion gap in Serum or Plasma Ordered By: Noé Currie on 03-21-2025 Anion gap [Moles/Vol] 13 mmol/L 5- [facility] Automated lymphocyte count a s percentage of total leukocytesOrdered By: Noé Currie on 03-21-2025 Lymphocytes/100 WBC Auto (Unsp spec) 27.1 % - [facility] BUN/creatinine ratioOrdered By: Noé Currie on 03-21-2025 Urea nitrogen/Creatinine [Mass ratio] 18.2 mg/mg - [facility] Basic Metabolic Profile (BMP )on 03-21-2025 BUN/CRE 18.2 RATIO Normal - [facility] Comment on above: Performed By: #### L 500.2500, L100.0100 ####[facility] [address] [place], [address] Calcium [Mass/Vol] 10.5 mg/dL Normal 7.6-11.0 [facility] Comment on above: Performed By: #### L 500.2500, L100.0100 ####[facility] [address] [place], [address] Chloride [Moles/Vol] 98 mmol/L Normal 98-108 [facility] Comment on above: Performed By: #### L 500.2500, L100.0100 ####[facility] [address] [place], [address] CO2 [Moles/Vol] 26.4 mmol/L Normal 21.0-32.0 [facility] Comment on above: Performed By: #### L 500.2500, L100.0100 ####[facility] [address] [place], [address] Creatinine [Mass/Vol] 1.00 mg/dL Normal 0.70-1.20 [facility] Comment on above: Performed By: #### L 500.2500, L100.0100 ####[facility] [address] [place], [address] ECRCL 41.62 ml/min Low 50-250 [facility] Comment on above: Performed By: #### L 500.2500, L100.0100 ####[facility] [address] [place], [address] GAP 13 Normal 5-15 [facility] Comment on above: Performed By: #### L 500.2500, L100.0100 ####[facility] [address] [place], [address] GFR/1.73 sq M.predicted among non-blacks MDRD (S/P/Bld) [Vol rate/Area] 57 mL/min/{1.73_m2} Low >60 [facility] Comment on above: Result Comment: mL/m in/1.73m2 CKD-EPI Creatinine Equation (2020) Performed By: #### L 500.2500, L100.0100 ####[facility] [address] [place], [address] Glucose [Mass/Vol] 128 mg/dL High 70-99 [facility] Comment on above: Performed By: #### L 500.2500, L100.0100 ####[facility] [address] [place], [address] Potassium [Moles/Vol] 4.4 mmol/L Normal 3.3-5.1 [facility] Comment on above: Result Comment: Hemo lysis present, Results??could be affected.?? Performed By: #### L 500.2500, L100.0100 ####[facility] [address] [place], [address] Sodium [Moles/Vol] 137 mmol/L Normal 133-145 [facility] Comment on above: Performed By: #### L 500.2500, L100.0100 ####[facility] [address] [place], [address] Urea nitrogen [Mass/Vol] 18 mg/dL Normal 4-19 [facility] Comment on above: Performed By: #### L 500.2500, L100.0100 ####[facility] [address] [place], [address] Basophil percentageOrdered B y: Noé Rosey on 03-21-2025 Basophils/100 WBC (Bld) 0.7 % 0-1 [facility] Bedside Glucoseon 03-21-2025 FINGERSTICK GLU 114 mg/dL High 74-106 [facility] Comment on above: Result Comment: KATARINA GARY OF PATIENT CARE PER NURSING PROTOCOL Performed By: #### L 501.080 ####[facility] [address] [place], [address] Bilirubin Test strip Ql (U)O rdered By: Ethan Suarez on 03-21-2025 Bilirubin Ql (U) Negative Negative [facility] CBC W/Diff, Automatedon 03-01 Absolute Lymph 2.26 X10 3/uL Normal 0.83-4.51 [facility] Comment on above: Performed By: #### L 500.2500, L100.0100 ####[facility] [address] [place], [address] Absolute Neut 5.2 X10 3/uL Normal 2.0-7.7 [facility] Comment on above: Performed By: #### L 500.2500, L100.0100 ####[facility] [address] [place], [address] Basophils/100 WBC (Bld) 0.7 % Normal 0-1 [facility] Comment on above: Performed By: #### L 500.2500, L100.0100 ####[facility] [address] [place], [address] Eosinophils/100 WBC (Bld) 0.8 % Normal 0-5 [facility] Comment on above: Performed By: #### L 500.2500, L100.0100 ####[facility] [address] [place], [address] Erythrocyte distribution width (RBC) [Ratio] 16.4 % High 11.6-14.6 [facility] Comment on above: Performed By: #### L 500.2500, L100.0100 ####[facility] [address] [place], [address] Hematocrit (Bld) [Volume fraction] 31.3 % Low 37-47 [facility] Comment on above: Performed By: #### L 500.2500, L100.0100 ####[facility] [address] [place], [address] Hemoglobin (Bld) [Mass/Vol] 9.7 g/dL Low 12.0-15.0 [facility] Comment on above: Performed By: #### L 500.2500, L100.0100 ####[facility] [address] [place], [address] IG% 0.500 Normal 0.0-0.9 [facility] Comment on above: Result Comment: IG% - Immature Granulocytes (promyelocytes, myelocytes andmetamyelocytes) > 1% indicates that a LEFT SHIFT is Present. Performed By: #### L 500.2500, L100.0100 ####[facility] [address] [place], [address] Lymphocytes/100 WBC (Bld) 27.1 % Normal 19-41 [facility] Comment on above: Performed By: #### L 500.2500, L100.0100 ####[facility] [address] [place], [address] MCH (RBC) [Entitic mass] 27.0 pg Normal 27.0-32.0 [facility] Comment on above: Performed By: #### L 500.2500, L100.0100 ####[facility] [address] [place], [address] MCHC (RBC) [Mass/Vol] 31.0 g/dL Low 32-36 [facility] Comment on above: Performed By: #### L 500.2500, L100.0100 ####[facility] [address] [place], [address] MCV (RBC) [Entitic vol] 87.2 fL Normal 81-99 [facility] Comment on above: Performed By: #### L 500.2500, L100.0100 ####[facility] [address] [place], [address] Monocytes/100 WBC (Bld) 8.6 % Normal 0-10 [facility] Comment on above: Performed By: #### L 500.2500, L100.0100 ####[facility] [address] [place], [address] Neutrophils/100 WBC (Bld) 62.3 % Normal 47-70 [facility] Comment on above: Performed By: #### L 500.2500, L100.0100 ####[facility] [address] [place], [address] Nucleated RBC (Bld) [#/Vol] 0 10*3/uL Normal 0-5 [facility] Comment on above: Performed By: #### L 500.2500, L100.0100 ####[facility] [address] [place], [address] Platelet mean volume (Bld) [Entitic vol] 11.1 fL Normal 6.2-12.0 [facility] Comment on above: Performed By: #### L 500.2500, L100.0100 ####[facility] [address] [place], [address] Platelets (Bld) [#/Vol] 304 10*3/uL Normal 150-450 [facility] Comment on above: Performed By: #### L 500.2500, L100.0100 ####[facility] [address] [place], [address] RBC (Bld) [#/Vol] 3.59 10*6/uL Low 4.2-5.4 [facility] Comment on above: Performed By: #### L 500.2500, L100.0100 ####[facility] [address] [place], [address] RDW SD 52.5 fl High 35.1-43.9 [facility] Comment on above: Performed By: #### L 500.2500, L100.0100 ####[facility] [address] [place], [address] WBC (Bld) [#/Vol] 8.4 10*3/uL Normal 4.4-11.0 [facility] Comment on above: Performed By: #### L 500.2500, L100.0100 ####[facility] [address] [place], [address] Carbon dioxide, total [Moles /volume] in Central venous bloodOrdered By: Noé Currie on 03-21-2025 CO2 [Moles/Vol] 26.4 mmol/L 21.0-32.0 [facility] Chloride assayOrdered By: Natividad Currie on 03-21-2025 Chloride [Moles/Vol] 98 mmol/L 98-108 [facility] Emergency Department Summary on 03-21-2025 Emergency Department Summary Normal [facility] Eosinophil percentageOrdered By: Noé Currie on 03-21-2025 Eosinophils/100 WBC (Bld) 0.8 % 0-5 [facility] Erythrocyte distribution wid th ratioOrdered By: Noé Currie on 03-21-2025 Erythrocyte distribution width (RBC) [Ratio] 16.4 % High 11.6-14.6 [facility] Erythrocyte distribution wid th standard deviationOrdered By: Noé Currie on 03-21-2025 Erythrocyte distribution width (RBC) [Ratio] 52.5 fl High 35.1-43.9 [facility] Glomerular filtration rate ( GFR) estimation/1.73 sq m using serum, plasma, or whole bOrdered By: Noé Currie on 03-21-2025 GFR/1.73 sq M.predicted among non-blacks MDRD (S/P/Bld) [Vol rate/Area] 57 mL/min/{1.73_m2} Low >60 [facility] deOrdered By: Noé Currie on 03-21-2025 Glucose [Mass/Vol] 114 mg/dL High 74-106 [facility] H AND P Exam - Hospitaliston 03-21-2025 H&P Exam - Hospitalist Normal [facility] Hematocrit Auto (Bld) [Volum e fraction]Ordered By: Noé Currie on 03-21-2025 Hematocrit (Bld) [Volume fraction] 31.3 % Low 37-47 [facility] Hemoglobin measurementOrdere d By: Noé Currie on 03-21-2025 Hemoglobin (Bld) [Mass/Vol] 9.7 g/dL Low 12.0-15.0 [facility] Immature granulocytes/100 WB C Auto (Bld)Ordered By: Noé Currie on 03-21-2025 Immature granulocytes/100 WBC (Bld) 0.500 % 0.0-0.9 [facility] Ketones Test strip Ql (U)Ord ered By: Ethan Suarez on 03-21-2025 Ketones Ql (U) Negative Negative [facility] MCV (mean corpuscular volume ) determinationOrdered By: Noé Currie on 03-21-2025 MCV (RBC) [Entitic vol] 87.2 fL 81-99 [facility] Mean corpuscular hemoglobin (MCH) determinationOrdered By: Noé Currie on 03-21-2025 MCH (RBC) [Entitic mass] 27.0 pg 27.0-32.0 [facility] Monocyte percentageOrdered B y: Noé Currie on 03-21-2025 Monocytes/100 WBC (Bld) 8.6 % 0-10 [facility] Mucus LM Ql (Urine sed)Order ed By: Ethan Suarez on 03-21-2025 Mucus Ql (Urine sed) 0 SEEN /hpf [facility] Neutrophil percentageOrdered By: Noé Currie on 03-21-2025 Neutrophils/100 WBC (Bld) 62.3 % 47-70 [facility] Nitrite Test strip Ql (U)Ord ered By: Ethan Suarez on 03-21-2025 Nitrite Ql (U) Negative Negative [facility] Platelet countOrdered By: Natividad Currie on 03-21-2025 Platelets (Bld) [#/Vol] 304 10*3/uL 150-450 [facility] Potassium measurement (mass/ volume)Ordered By: Noé Currie on 03-21-2025 Potassium (Unsp spec) [Mass/Vol] 4.4 mmol/L 3.3-5.1 [facility] Protein Test strip Ql (U)Ord ered By: Ethan Suarez on 03-21-2025 Protein Ql (U) 30 mg/dl High Negative [facility] RBC Auto (Bld) [#/Vol]Ordere d By: Noé Currie on 03-21-2025 RBC (Bld) [#/Vol] 3.59 10*6/uL Low 4.2-5.4 [facility] Serum creatinine measurement (mass/volume)Ordered By: Noé Currie on 03-21-2025 Creatinine [Mass/Vol] 1.00 mg/dL 0.70-1.20 [facility] Serum glucose measurement (m ass/volume)Ordered By: Noé Currie on 03-21-2025 Glucose [Mass/Vol] 128 mg/dL High 70-99 [facility] Serum or plasma calcium melanie urement (mass/volume)Ordered By: Noé Currie on 03-21-2025 Calcium [Mass/Vol] 10.5 mg/dL 7.6-11.0 [facility] Serum or plasma urea nitroge n measurement (mass/volume)Ordered By: Noé Currie on 03-21-2025 Urea nitrogen [Mass/Vol] 18 mg/dL 4-19 [facility] Sodium levelOrdered By: Savage chapman Rosey on 03-21-2025 Sodium [Moles/Vol] 137 mmol/L 133-145 [facility] Spine Lumbar without Contras ton 03-21-2025 Spine Lumbar without Contrast Normal [facility] Squamous epithelial cells de tection in urine sediment by light microscopyOrdered By: Ethan Suarez on 03-21-2025 Epithelial cells.squamous LM Ql (Urine sed) 0-5 SEEN /hpf 5-10 [facility] Urinalysis, Completeon 03-21 BACTERIA 1+ /hpf Normal None Seen [facility] Comment on above: Order Comment: MARSHALL CTOR TO SPECIFY Performed By: #### L 400.0001 ####[facility] [address] [place], [address] RBC 0-5 SEEN Normal 0-5 [facility] Comment on above: Order Comment: MARSHALL CTOR TO SPECIFY Performed By: #### L 400.0001 ####[facility] [address] [place], [address] YEAST 1+ /hpf Normal None Seen [facility] Comment on above: Order Comment: MARSHALL CTOR TO SPECIFY Performed By: #### L 400.0001 ####[facility] [address] [place], [address] EPI,SQUAMOUS 0-5 SEEN Normal 5-10 [facility] Comment on above: Order Comment: MARSHALL CTOR TO SPECIFY Performed By: #### L 400.0001 ####[facility] [address] [place], [address] WBC >100 SEEN Normal 0-5 [facility] Comment on above: Order Comment: MARSHALL CTOR TO SPECIFY Performed By: #### L 400.0001 ####[facility] [address] [place], [address] Mucus Ql (Urine sed) 0 SEEN Normal [facility] Comment on above: Order Comment: COLLE CTOR TO SPECIFY Performed By: #### L 400.0001 ####[facility] [address] [place], [address] Urine clarityOrdered By: Robb Suarez on 03-21-2025 Clarity (U) Sl. Cloudy Clear [facility] Urine color determinationOrd ered By: Ethan Suarez on 03-21-2025 Color (U) Yellow Yellow [facility] Urine cultureOrdered By: Robb Suarez on 03-21-2025 Bacteria identified Cx Nom (U) Staphylococcus epidermidis Abnormal [facility] Urine glucose detectionOrder ed By: Ethan Suarez on 03-21-2025 Glucose Ql (U) 1000 mg/dl High Normal [facility] Urine leukocyte esterase det ection by dipstickOrdered By: Ethan Suarez on 03-21-2025 Leukocyte esterase Test strip Ql (U) 500 /ul High Negative [facility] Urine pHOrdered By: Ethan Suarez on 03-21-2025 pH (U) 7.0 [pH] 5.0 - 8.0 [facility] Urine sediment bacteria coun t by microscopy (number/high power field)Ordered By: Ethan Suarez on 03-21-2025 Bacteria LM.HPF (Urine sed) [#/Area] 1 /[HPF] None Seen [facility] Urine sediment yeast count b y microscopy (number/high powered field)Ordered By: Ethan Suarez on 03-21-2025 Yeast LM.HPF (Urine sed) [#/Area] 1 /[HPF] None Seen [facility] Urine specific gravity measu rementOrdered By: Ethan Suarez on 03-21-2025 Specific gravity (U) [Rel density] 1.010 1.002-1.030 [facility] Urine urobilinogen measureme ntOrdered By: Ethan Suarez on 03-21-2025 Urobilinogen Ql (U) Normal mg/dl Normal [facility] White blood cell (WBC) count Ordered By: Noé Currie on 03-21-2025 WBC (Bld) [#/Vol] 8.4 10*3/uL 4.4-11.0 [facility] White blood cell countOrdere d By: Ethan Suarez on 03-21-2025 White blood cell count >100 SEEN /hpf 0-5 [facility] Culture, Blood (WB)on 2024 CUB Blood cultures x2, from two different sites No growth in 5 days. Normal [facility] Comment on above: Performed By: #### L 500.4050, L300.3900, L300.4310, L100.0100, L503.6005, M200.1000 ####[facility] [address] [place], [place], [address] Cardiovascular stress test r eportOrdered By: Se Good on 03-07-2025 Study report [facility] Work Phone: Stress Reporton 03-07-2025 Stress Report Normal [facility] Urine Cultureon 03-06-2025 URC Normal [facility] Comment on above: Performed By: #### L 400.0001, M100.2200 ####[facility] [address] [place], [place], [address] 12 Lead EKGon 03-04-2025 12 Lead EKG Normal [facility] Abdomen/Pelvis W IV Cont ONL Yon 03-04-2025 Abdomen/Pelvis W IV Cont ONLY Normal [facility] Absolute lymphocyte countOrd ered By: Jeevan Yoder on 03-04-2025 Lymphocytes Auto (Unsp spec) [#/Vol] 1.75 10*3/uL 0.83-4.51 [facility] Activated partial thrombopla stin time (aPTT) in platelet poor plasma by coagulation aOrdered By: Jeevan Yoder on 03-04-2025 aPTT Coag (PPP) [Time] 25.2 s 24.1-36.2 [facility] Amorphous sediment detection in urine sediment by light microscopyOrdered By: Jeevan Yoder on 03-04-2025 Amorphous sediment LM Ql (Urine sed) 3+ [facility] Anion gap in Serum or Plasma Ordered By: Jeevan Yoder on 03-04-2025 Anion gap [Moles/Vol] 11 mmol/L 5-15 [facility] Automated lymphocyte count a s percentage of total leukocytesOrdered By: Jeevan Yoder on 03-04-2025 Lymphocytes/100 WBC Auto (Unsp spec) 24.2 % 19-41 [facility] BUN/creatinine ratioOrdered By: Jeevan Yoder on 03-04-2025 Urea nitrogen/Creatinine [Mass ratio] 18.1 mg/mg 10-20 [facility] Basophil percentageOrdered B y: Jeevan Yoder on 03-04-2025 Basophils/100 WBC (Bld) 0.4 % 0-1 [facility] Bilirubin Test strip Ql (U)O rdered By: Jeevan Yoder on 03-04-2025 Bilirubin Ql (U) Negative Negative [facility] Bilirubin, totalOrdered By: Jeevan Yoder on 03-04-2025 Bilirubin [Mass/Vol] 0.25 mg/dL 0.00-1.30 [facility] Blood cultureOrdered By: Maeve Yoder on 03-04-2025 Bacteria identified Cx Nom (Bld) No growth in 5 days. [facility] Bacteria identified Cx Nom (Bld) No growth in 5 days. [facility] CBC W/Diff, Automatedon Absolute Lymph 1.75 X10 3/uL Normal 0.83-4.51 [facility] Comment on above: Performed By: #### L 500.4050, L300.3900, L300.4310, L100.0100, L503.6005, M200.1000 ####[facility] [address] [place], [address] Absolute Neut 4.8 X10 3/uL Normal 2.0-7.7 [facility] Comment on above: Performed By: #### L 500.4050, L300.3900, L300.4310, L100.0100, L503.6005, M200.1000 ####[facility] [address] [place], [address] Basophils/100 WBC (Bld) 0.4 % Normal 0-1 [facility] Comment on above: Performed By: #### L 500.4050, L300.3900, L300.4310, L100.0100, L503.6005, M200.1000 ####[facility] [address] [place], [address] Eosinophils/100 WBC (Bld) 1.7 % Normal 0-5 [facility] Comment on above: Performed By: #### L 500.4050, L300.3900, L300.4310, L100.0100, L503.6005, M200.1000 ####[facility] [address] [place], [address] Erythrocyte distribution width (RBC) [Ratio] 16.2 % High 11.6-14.6 [facility] Comment on above: Performed By: #### L 500.4050, L300.3900, L300.4310, L100.0100, L503.6005, M200.1000 ####[facility] [address] [place], [address] Hematocrit (Bld) [Volume fraction] 33.5 % Low 37-47 [facility] Comment on above: Performed By: #### L 500.4050, L300.3900, L300.4310, L100.0100, L503.6005, M200.1000 ####[facility] [address] [place], [address] Hemoglobin (Bld) [Mass/Vol] 10.1 g/dL Low 12.0-15.0 [facility] Comment on above: Performed By: #### L 500.4050, L300.3900, L300.4310, L100.0100, L503.6005, M200.1000 ####[facility] [address] [place], [address] IG% 0.700 Normal 0.0-0.9 [facility] Comment on above: Result Comment: IG% - Immature Granulocytes (promyelocytes, myelocytes andmetamyelocytes) > 1% indicates that a LEFT SHIFT is Present. Performed By: #### L 500.4050, L300.3900, L300.4310, L100.0100, L503.6005, M200.1000 ####[facility] [address] [place], [address] Lymphocytes/100 WBC (Bld) 24.2 % Normal 19-41 [facility] Comment on above: Performed By: #### L 500.4050, L300.3900, L300.4310, L100.0100, L503.6005, M200.1000 ####[facility] [address] [place], [address] MCH (RBC) [Entitic mass] 27.2 pg Normal 27.0-32.0 [facility] Comment on above: Performed By: #### L 500.4050, L300.3900, L300.4310, L100.0100, L503.6005, M200.1000 ####[facility] [address] [place], [address] MCHC (RBC) [Mass/Vol] 30.1 g/dL Low 32-36 [facility] Comment on above: Performed By: #### L 500.4050, L300.3900, L300.4310, L100.0100, L503.6005, M200.1000 ####[facility] [address] [place], [address] MCV (RBC) [Entitic vol] 90.3 fL Normal 81-99 [facility] Comment on above: Performed By: #### L 500.4050, L300.3900, L300.4310, L100.0100, L503.6005, M200.1000 ####[facility] [address] [place], [address] Monocytes/100 WBC (Bld) 6.9 % Normal 0-10 [facility] Comment on above: Performed By: #### L 500.4050, L300.3900, L300.4310, L100.0100, L503.6005, M200.1000 ####[facility] [address] [place], [address] Neutrophils/100 WBC (Bld) 66.1 % Normal 47-70 [facility] Comment on above: Performed By: #### L 500.4050, L300.3900, L300.4310, L100.0100, L503.6005, M200.1000 ####[facility] [address] [place], [address] Nucleated RBC (Bld) [#/Vol] 0 10*3/uL Normal 0-5 [facility] Comment on above: Performed By: #### L 500.4050, L300.3900, L300.4310, L100.0100, L503.6005, M200.1000 ####[facility] [address] [place], [address] Platelet mean volume (Bld) [Entitic vol] 10.6 fL Normal 6.2-12.0 [facility] Comment on above: Performed By: #### L 500.4050, L300.3900, L300.4310, L100.0100, L503.6005, M200.1000 ####[facility] [address] [place], [address] Platelets (Bld) [#/Vol] 334 10*3/uL Normal 150-450 [facility] Comment on above: Performed By: #### L 500.4050, L300.3900, L300.4310, L100.0100, L503.6005, M200.1000 ####[facility] [address] [place], [address] RBC (Bld) [#/Vol] 3.71 10*6/uL Low 4.2-5.4 [facility] Comment on above: Performed By: #### L 500.4050, L300.3900, L300.4310, L100.0100, L503.6005, M200.1000 ####[facility] [address] [place], [address] RDW SD 52.9 fl High 35.1-43.9 [facility] Comment on above: Performed By: #### L 500.4050, L300.3900, L300.4310, L100.0100, L503.6005, M200.1000 ####[facility] [address] [place], [address] WBC (Bld) [#/Vol] 7.2 10*3/uL Normal 4.4-11.0 [facility] Comment on above: Performed By: #### L 500.4050, L300.3900, L300.4310, L100.0100, L503.6005, M200.1000 ####[facility] [address] [place], [address] Carbon dioxide, total [Moles /volume] in Central venous bloodOrdered By: Jeevan Yoder on 03-04-2025 CO2 [Moles/Vol] 29.0 mmol/L 21.0-32.0 [facility] Chloride assayOrdered By: Kenny Yoder on 03-04-2025 Chloride [Moles/Vol] 97 mmol/L Low 98-108 [facility] Comprehensive Metabolic Prof ilon 03-04-2025 Albumin [Mass/Vol] 3.3 g/dL Low 3.4-4.8 [facility] Comment on above: Performed By: #### L 500.4050, L300.3900, L300.4310, L100.0100, L503.6005, M200.1000 ####[facility] [address] [place], [address] Albumin/Globulin [Mass ratio] 0.9 {ratio} Normal 0.9-2.4 [facility] Comment on above: Performed By: #### L 500.4050, L300.3900, L300.4310, L100.0100, L503.6005, M200.1000 ####[facility] [address] [place], [address] ALK PHOS 79 U/L Normal 35-104 [facility] Comment on above: Performed By: #### L 500.4050, L300.3900, L300.4310, L100.0100, L503.6005, M200.1000 ####[facility] [address] [place], [address] ALT [Catalytic activity/Vol] 25 U/L Normal <=34 [facility] Comment on above: Performed By: #### L 500.4050, L300.3900, L300.4310, L100.0100, L503.6005, M200.1000 ####[facility] [address] [place], [address] AST [Catalytic activity/Vol] 26 U/L Normal <=31 [facility] Comment on above: Performed By: #### L 500.4050, L300.3900, L300.4310, L100.0100, L503.6005, M200.1000 ####[facility] [address] [place], [address] Bilirubin [Mass/Vol] 0.25 mg/dL Normal 0.00-1.30 [facility] Comment on above: Performed By: #### L 500.4050, L300.3900, L300.4310, L100.0100, L503.6005, M200.1000 ####[facility] [address] [place], [address] BUN/CRE 18.1 RATIO Normal 10-20 [facility] Comment on above: Performed By: #### L 500.4050, L300.3900, L300.4310, L100.0100, L503.6005, M200.1000 ####[facility] [address] [place], [address] Calcium [Mass/Vol] 10.7 mg/dL Normal 7.6-11.0 [facility] Comment on above: Performed By: #### L 500.4050, L300.3900, L300.4310, L100.0100, L503.6005, M200.1000 ####[facility] [address] [place], [address] Chloride [Moles/Vol] 97 mmol/L Low 98-108 [facility] Comment on above: Performed By: #### L 500.4050, L300.3900, L300.4310, L100.0100, L503.6005, M200.1000 ####[facility] [address] [place], [address] CO2 [Moles/Vol] 29.0 mmol/L Normal 21.0-32.0 [facility] Comment on above: Performed By: #### L 500.4050, L300.3900, L300.4310, L100.0100, L503.6005, M200.1000 ####[facility] [address] [place], [address] Creatinine [Mass/Vol] 1.29 mg/dL High 0.70-1.20 [facility] Comment on above: Performed By: #### L 500.4050, L300.3900, L300.4310, L100.0100, L503.6005, M200.1000 ####[facility] [address] [place], [address] ECRCL 32.46 ml/min Low 50-250 [facility] Comment on above: Performed By: #### L 500.4050, L300.3900, L300.4310, L100.0100, L503.6005, M200.1000 ####[facility] [address] [place], [address] GAP 11 Normal 5-15 [facility] Comment on above: Performed By: #### L 500.4050, L300.3900, L300.4310, L100.0100, L503.6005, M200.1000 ####[facility] [address] [place], [address] GFR/1.73 sq M.predicted among non-blacks MDRD (S/P/Bld) [Vol rate/Area] 42 mL/min/{1.73_m2} Low >60 [facility] Comment on above: Result Comment: mL/m in/1.73m2 CKD-EPI Creatinine Equation (2020) Performed By: #### L 500.4050, L300.3900, L300.4310, L100.0100, L503.6005, M200.1000 ####[facility] [address] [place], [address] Globulin (S) [Mass/Vol] 3.6 g/dL Normal 2.2-4.2 [facility] Comment on above: Performed By: #### L 500.4050, L300.3900, L300.4310, L100.0100, L503.6005, M200.1000 ####[facility] [address] [place], [address] Glucose [Mass/Vol] 116 mg/dL High 70-99 [facility] Comment on above: Performed By: #### L 500.4050, L300.3900, L300.4310, L100.0100, L503.6005, M200.1000 ####[facility] [address] [place], [address] Potassium [Moles/Vol] 5.0 mmol/L Normal 3.3-5.1 [facility] Comment on above: Performed By: #### L 500.4050, L300.3900, L300.4310, L100.0100, L503.6005, M200.1000 ####[facility] [address] [place], [address] Sodium [Moles/Vol] 136 mmol/L Normal 133-145 [facility] Comment on above: Performed By: #### L 500.4050, L300.3900, L300.4310, L100.0100, L503.6005, M200.1000 ####[facility] [address] [place], [place], [address] T PROT 6.9 g/dL Normal 5.9-8.4 [facility] Comment on above: Performed By: #### L 500.4050, L300.3900, L300.4310, L100.0100, L503.6005, M200.1000 ####[facility] [address] [place], [address] Urea nitrogen [Mass/Vol] 23 mg/dL High 4-19 [facility] Comment on above: Performed By: #### L 500.4050, L300.3900, L300.4310, L100.0100, L503.6005, M200.1000 ####[facility] [address] [place], [address] Emergency Department Summary on 03-04-2025 Emergency Department Summary Normal [facility] Eosinophil percentageOrdered By: Jeevan Yoder on 03-04-2025 Eosinophils/100 WBC (Bld) 1.7 % 0-5 [facility] Erythrocyte distribution wid th ratioOrdered By: Jeevan Yoder on 03-04-2025 Erythrocyte distribution width (RBC) [Ratio] 16.2 % High 11.6-14.6 [facility] Erythrocyte distribution wid th standard deviationOrdered By: Jeevan Yoder on 03-04-2025 Erythrocyte distribution width (RBC) [Ratio] 52.9 fl High 35.1-43.9 [facility] Glomerular filtration rate ( GFR) estimation/1.73 sq m using serum, plasma, or whole bOrdered By: Jeevan Yoder on 03-04-2025 GFR/1.73 sq M.predicted among non-blacks MDRD (S/P/Bld) [Vol rate/Area] 42 mL/min/{1.73_m2} Low >60 [facility] Hematocrit Auto (Bld) [Volum e fraction]Ordered By: Jeevan Yoder on 03-04-2025 Hematocrit (Bld) [Volume fraction] 33.5 % Low 37-47 [facility] Hemoglobin measurementOrdere d By: Jeevan Yoder on 03-04-2025 Hemoglobin (Bld) [Mass/Vol] 10.1 g/dL Low 12.0-15.0 [facility] Immature granulocytes/100 WB C Auto (Bld)Ordered By: Jeevan Yoder on 03-04-2025 Immature granulocytes/100 WBC (Bld) 0.700 % 0.0-0.9 [facility] Ketones Test strip Ql (U)Ord ered By: Jeevan Yoder on 03-04-2025 Ketones Ql (U) 5 mg/dl High Negative [facility] Lactic Acidon 03-04-2025 Lactate [Moles/Vol] 2.0 mmol/L Normal 0.0-2.0 [facility] Comment on above: Order Comment: Y Result Comment: Crit ical Result(s) Called at: 2056 by:??ARCHIE LOVE Results read back by same. Performed By: #### L 500.4050, L300.3900, L300.4310, L100.0100, L503.6005, M200.1000 ####[facility] [address] [place], [address] MCV (mean corpuscular volume ) determinationOrdered By: Jeevan Yoder on 03-04-2025 MCV (RBC) [Entitic vol] 90.3 fL 81-99 [facility] Mean corpuscular hemoglobin (MCH) determinationOrdered By: Jeevan Yoder on 03-04-2025 MCH (RBC) [Entitic mass] 27.2 pg 27.0-32.0 [facility] Monocyte percentageOrdered B y: Jeevan Yoder on 03-04-2025 Monocytes/100 WBC (Bld) 6.9 % 0-10 [facility] Mucus LM Ql (Urine sed)Order ed By: Jeevan Yoder on 03-04-2025 Mucus Ql (Urine sed) 0 SEEN /hpf [facility] Neutrophil percentageOrdered By: Jeevan Yoder on 03-04-2025 Neutrophils/100 WBC (Bld) 66.1 % 47-70 [facility] Nitrite Test strip Ql (U)Ord ered By: Jeevan Yoder on 03-04-2025 Nitrite Ql (U) Negative Negative [facility] No Panel InformationOrdered By: Jeevan Yoder on 03-04-2025 26 U/L <32 [facility] Partial Thromboplast Timeon 03-04-2025 aPTT Coag (Bld) [Time] 25.2 s Normal 24.1-36.2 [facility] Comment on above: Performed By: #### L 500.4050, L300.3900, L300.4310, L100.0100, L503.6005, M200.1000 ####[facility] [address] [place], [place], [id number] Platelet countOrdered By: Kenny Yoder on 03-04-2025 Platelets (Bld) [#/Vol] 334 10*3/uL 150-450 [facility] Potassium measurement (mass/ volume)Ordered By: Jeevan Yoder on 03-04-2025 Potassium (Unsp spec) [Mass/Vol] 5.0 mmol/L 3.3-5.1 [facility] Protein Test strip Ql (U)Ord ered By: Jeevan Yoder on 03-04-2025 Protein Ql (U) 100 mg/dl High Negative [facility] Prothrombin Time w/INRon INR Coag (PPP) [Relative time] 1.0 {INR} Normal [facility] Comment on above: Performed By: #### L 500.4050, L300.3900, L300.4310, L100.0100, L503.6005, M200.1000 ####[facility] [address] [place], [address] PT Coag (PPP) [Time] 13.8 s Normal 11.7-14.9 [facility] Comment on above: Performed By: #### L 500.4050, L300.3900, L300.4310, L100.0100, L503.6005, M200.1000 ####[facility] [address] [place], [address] Prothrombin timeOrdered By: Jeevan Yoder on 03-04-2025 PT Coag (PPP) [Time] 13.8 s 11.7-14.9 [facility] RBC Auto (Bld) [#/Vol]Ordere d By: Jeevan Yoder on 03-04-2025 RBC (Bld) [#/Vol] 3.71 10*6/uL Low 4.2-5.4 [facility] Serum creatinine measurement (mass/volume)Ordered By: Jeevan Yoder on 03-04-2025 Creatinine [Mass/Vol] 1.29 mg/dL High 0.70-1.20 [facility] Serum globulin measurementOr dered By: Jeevan Yoder on 03-04-2025 Globulin (S) [Mass/Vol] 3.6 g/dL 2.2-4.2 [facility] Serum glucose measurement (m ass/volume)Ordered By: Jeevan Yoder on 03-04-2025 Glucose [Mass/Vol] 116 mg/dL High 70-99 [facility] Serum or plasma alanine kelley otransferase (ALT) measurementOrdered By: Jeevan Yoder on 03-04-2025 ALT [Catalytic activity/Vol] 25 U/L <35 [facility] Serum or plasma albumin melanie urement (mass/volume)Ordered By: Jeevan Yoder on 03-04-2025 Albumin [Mass/Vol] 3.3 g/dL Low 3.4-4.8 [facility] Serum or plasma albumin/glob ulin mass ratioOrdered By: Jeevan Yoder on 03-04-2025 Albumin/Globulin [Mass ratio] 0.9 {ratio} 0.9-2.4 [facility] Serum or plasma alkaline lissa sphatase measurementOrdered By: Jeevan Yoder on 03-04-2025 ALP [Catalytic activity/Vol] 79 U/L 35-104 [facility] Serum or plasma calcium melanie urement (mass/volume)Ordered By: Jeevan Yoder on 03-04-2025 Calcium [Mass/Vol] 10.7 mg/dL 7.6-11.0 [facility] Serum or plasma urea nitroge n measurement (mass/volume)Ordered By: Jeevan Yoder on 03-04-2025 Urea nitrogen [Mass/Vol] 23 mg/dL High 4-19 [facility] Sodium levelOrdered By: Marcelino Yoder on 03-04-2025 Sodium [Moles/Vol] 136 mmol/L 133-145 [facility] Squamous epithelial cells de tection in urine sediment by light microscopyOrdered By: Jeevan Yoder on 03-04-2025 Epithelial cells.squamous LM Ql (Urine sed) 0-5 SEEN /hpf 5-10 [facility] Total proteinOrdered By: Maeve Yoder on 03-04-2025 Protein [Mass/Vol] 6.9 g/dL 5.9-8.4 [facility] Urinalysis, Completeon 03-04 BACTERIA 4+ /hpf Normal None Seen [facility] Comment on above: Order Comment: MARSHALL CTOR TO SPECIFY Performed By: #### L 400.0001, ####[facility] [address] [place], [place], [id number] EPI,SQUAMOUS 0-5 SEEN Normal 5-10 [facility] Comment on above: Order Comment: MARSHALL CTOR TO SPECIFY Performed By: #### L 400.0001, ####[facility] [address] [place], [place], [address] RBC 0-5 SEEN Normal 0-5 [facility] Comment on above: Order Comment: MARSHALL CTOR TO SPECIFY Performed By: #### L 400.0001, ####[facility] [address] [place], [address] YEAST 2+ /hpf Normal None Seen [facility] Comment on above: Order Comment: MARSHALL CTOR TO SPECIFY Performed By: #### L 400.0001, M100.2200 ####[facility] [address] [place], [address] AMORPHOUS 3+ Normal [facility] Comment on above: Order Comment: MARSHALL CTOR TO SPECIFY Performed By: #### L 400.0001, M100.2200 ####[facility] [address] [place], [address] WBC 25-50 SEEN Normal 0-5 [facility] Comment on above: Order Comment: MARSHALL CTOR TO SPECIFY Performed By: #### L 400.0001, M100.2200 ####[facility] [address] [place], [address] Mucus Ql (Urine sed) 0 SEEN Normal [facility] Comment on above: Order Comment: MARSHALL CTOR TO SPECIFY Performed By: #### L 400.0001, M100.2200 ####[facility] [address] [place], [address] Urine clarityOrdered By: Maeve Yoder on 03-04-2025 Clarity (U) Cloudy Clear [facility] Urine color determinationOrd ered By: Jeevan Yoder on 03-04-2025 Color (U) Straw Yellow [facility] Urine cultureOrdered By: Maeve Yoder on 03-04-2025 Bacteria identified Cx Nom (U) Enterococcus faecalis Abnormal [facility] Urine glucose detectionOrder ed By: Jeevan Yoder on 03-04-2025 Glucose Ql (U) 100 mg/dl High Normal [facility] Urine leukocyte esterase det ection by dipstickOrdered By: Jeevan Yoder on 03-04-2025 Leukocyte esterase Test strip Ql (U) 500 /ul High Negative [facility] Urine pHOrdered By: Jeevan [place] on 03-04-2025 pH (U) 7.0 [pH] 5.0 - 8.0 [facility] Urine sediment bacteria coun t by microscopy (number/high power field)Ordered By: Jeevan Yoder on 03-04-2025 Bacteria LM.HPF (Urine sed) [#/Area] 4 /[HPF] None Seen [facility] Urine sediment yeast count b y microscopy (number/high powered field)Ordered By: Jeevan Yoder on 03-04-2025 Yeast LM.HPF (Urine sed) [#/Area] 2 /[HPF] None Seen [facility] Urine specific gravity measu rementOrdered By: Jeevan Yoder on 03-04-2025 Specific gravity (U) [Rel density] 1.010 1.002-1.030 [facility] Urine urobilinogen measureme ntOrdered By: Jeevan Yoder on 03-04-2025 Urobilinogen Ql (U) Normal mg/dl Normal [facility] White blood cell (WBC) count Ordered By: Jeevan Yoder on 03-04-2025 WBC (Bld) [#/Vol] 7.2 10*3/uL 4.4-11.0 [facility] White blood cell countOrdere d By: Jeevan Yoder on 03-04-2025 White blood cell count 25-50 SEEN /hpf 0-5 [facility] Basic Metabolic Profile (BMP )on 02-23-2025 BUN Normal 4-19 [facility] Comment on above: Result Comment: Canc elled via OM: Order cancelled - Patient discharged Performed By: #### L 500.2500, L100.0100 ####[facility] [address] [place], [address] BUN/CRE Normal 10-20 [facility] Comment on above: Result Comment: Canc elled via OM: Order cancelled - Patient discharged Performed By: #### L 500.2500, L100.0100 ####[facility] [address] [place], [address] Calcium Normal 7.6-11.0 [facility] Comment on above: Result Comment: Canc elled via OM: Order cancelled - Patient discharged Performed By: #### L 500.2500, L100.0100 ####[facility] [address] [place], [address] CL Normal 98-108 [facility] Comment on above: Result Comment: Canc elled via OM: Order cancelled - Patient discharged Performed By: #### L 500.2500, L100.0100 ####[facility] [address] [place], [address] CO2 Normal 21.0-32.0 [facility] Comment on above: Result Comment: Canc elled via OM: Order cancelled - Patient discharged Performed By: #### L 500.2500, L100.0100 ####[facility] [address] [place], [address] CREAT,SERUM Normal 0.70-1.20 [facility] Comment on above: Result Comment: Canc elled via OM: Order cancelled - Patient discharged Performed By: #### L 500.2500, L100.0100 ####[facility] [address] [place], [address] eGFR Normal >60 [facility] Comment on above: Result Comment: Canc elled via OM: Order cancelled - Patient discharged Performed By: #### L 500.2500, L100.0100 ####[facility] [address] [place], [address] GAP Normal 5-15 [facility] Comment on above: Result Comment: Canc elled via OM: Order cancelled - Patient discharged Performed By: #### L 500.2500, L100.0100 ####[facility] [address] [place], [address] GLU Normal 70-99 [facility] Comment on above: Result Comment: Canc elled via OM: Order cancelled - Patient discharged Performed By: #### L 500.2500, L100.0100 ####[facility] [address] [place], [address] Potassium Normal 3.3-5.1 [facility] Comment on above: Result Comment: Canc elled via OM: Order cancelled - Patient discharged Performed By: #### L 500.2500, L100.0100 ####[facility] [address] [place], [address] Basic Metabolic Profile (BMP) Normal 133-145 [facility] Comment on above: Result Comment: Canc elled via OM: Order cancelled - Patient discharged Performed By: #### L 500.2500, L100.0100 ####[facility] [address] [place], [address] CBC W/Diff, Automatedon 06-2 Absolute Neut Normal 2.0-7.7 [facility] Comment on above: Result Comment: Canc elled via OM: Order cancelled - Patient discharged Performed By: #### L 500.2500, L100.0100 ####[facility] [address] [place], [address] HCT Normal 37-47 [facility] Comment on above: Result Comment: Canc elled via OM: Order cancelled - Patient discharged Performed By: #### L 500.2500, L100.0100 ####[facility] [address] [place], [address] HGB Normal 12.0-15.0 [facility] Comment on above: Result Comment: Canc elled via OM: Order cancelled - Patient discharged Performed By: #### L 500.2500, L100.0100 ####[facility] [address] [place], [address] MCH Normal 27.0-32.0 [facility] Comment on above: Result Comment: Canc elled via OM: Order cancelled - Patient discharged Performed By: #### L 500.2500, L100.0100 ####[facility] [address] [place], [address] MCHC Normal 32-36 [facility] Comment on above: Result Comment: Canc elled via OM: Order cancelled - Patient discharged Performed By: #### L 500.2500, L100.0100 ####[facility] [address] [place], [address] MCV Normal 81-99 [facility] Comment on above: Result Comment: Canc elled via OM: Order cancelled - Patient discharged Performed By: #### L 500.2500, L100.0100 ####[facility] [address] [place], [address] NEUT% Normal 47-70 [facility] Comment on above: Result Comment: Canc elled via OM: Order cancelled - Patient discharged Performed By: #### L 500.2500, L100.0100 ####[facility] [address] [place], [address] PLT Normal 150-450 [facility] Comment on above: Result Comment: Canc elled via OM: Order cancelled - Patient discharged Performed By: #### L 500.2500, L100.0100 ####[facility] [address] [place], [address] RBC Normal 4.2-5.4 [facility] Comment on above: Result Comment: Canc elled via OM: Order cancelled - Patient discharged Performed By: #### L 500.2500, L100.0100 ####[facility] [address] [place], [address] RDW CV Normal 11.6-14.6 [facility] Comment on above: Result Comment: Canc elled via OM: Order cancelled - Patient discharged Performed By: #### L 500.2500, L100.0100 ####[facility] [address] [place], [address] RDW SD Normal 35.1-43.9 [facility] Comment on above: Result Comment: Canc elled via OM: Order cancelled - Patient discharged Performed By: #### L 500.2500, L100.0100 ####[facility] [address] [place], [address] WBC Normal 4.4-11.0 [facility] Comment on above: Result Comment: Canc elled via OM: Order cancelled - Patient discharged Performed By: #### L 500.2500, L100.0100 ####[facility] [address] [place], [address] Basic Metabolic Profile (BMP )on 02-22-2025 BUN Normal 4-19 [facility] Comment on above: Result Comment: Canc elled via OM: Order cancelled - Patient discharged Performed By: #### L 500.2500, L100.0100 ####[facility] [address] [place], [address] BUN/CRE Normal 10-20 [facility] Comment on above: Result Comment: Canc elled via OM: Order cancelled - Patient discharged Performed By: #### L 500.2500, L100.0100 ####[facility] [address] [place], [address] Calcium Normal 7.6-11.0 [facility] Comment on above: Result Comment: Canc elled via OM: Order cancelled - Patient discharged Performed By: #### L 500.2500, L100.0100 ####[facility] [address] [place], [address] CL Normal 98-108 [facility] Comment on above: Result Comment: Canc elled via OM: Order cancelled - Patient discharged Performed By: #### L 500.2500, L100.0100 ####[facility] [address] [place], [address] CO2 Normal 21.0-32.0 [facility] Comment on above: Result Comment: Canc elled via OM: Order cancelled - Patient discharged Performed By: #### L 500.2500, L100.0100 ####[facility] [address] [place], [address] CREAT,SERUM Normal 0.70-1.20 [facility] Comment on above: Result Comment: Canc elled via OM: Order cancelled - Patient discharged Performed By: #### L 500.2500, L100.0100 ####[facility] [address] [place], [address] eGFR Normal >60 [facility] Comment on above: Result Comment: Canc elled via OM: Order cancelled - Patient discharged Performed By: #### L 500.2500, L100.0100 ####[facility] [address] [place], [address] GAP Normal 5-15 [facility] Comment on above: Result Comment: Canc elled via OM: Order cancelled - Patient discharged Performed By: #### L 500.2500, L100.0100 ####[facility] [address] [place], [address] GLU Normal 70-99 [facility] Comment on above: Result Comment: Canc elled via OM: Order cancelled - Patient discharged Performed By: #### L 500.2500, L100.0100 ####[facility] [address] [place], [address] Potassium Normal 3.3-5.1 [facility] Comment on above: Result Comment: Canc elled via OM: Order cancelled - Patient discharged Performed By: #### L 500.2500, L100.0100 ####[facility] [address] [place], [address] Basic Metabolic Profile (BMP) Normal 133-145 [facility] Comment on above: Result Comment: Canc elled via OM: Order cancelled - Patient discharged Performed By: #### L 500.2500, L100.0100 ####[facility] [address] [place], [address] CBC W/Diff, Automatedon 06-2 Absolute Neut Normal 2.0-7.7 [facility] Comment on above: Result Comment: Canc elled via OM: Order cancelled - Patient discharged Performed By: #### L 500.2500, L100.0100 ####[facility] [address] [place], [address] HCT Normal 37-47 [facility] Comment on above: Result Comment: Canc elled via OM: Order cancelled - Patient discharged Performed By: #### L 500.2500, L100.0100 ####[facility] [address] [place], [address] HGB Normal 12.0-15.0 [facility] Comment on above: Result Comment: Canc elled via OM: Order cancelled - Patient discharged Performed By: #### L 500.2500, L100.0100 ####[facility] [address] [place], [address] MCH Normal 27.0-32.0 [facility] Comment on above: Result Comment: Canc elled via OM: Order cancelled - Patient discharged Performed By: #### L 500.2500, L100.0100 ####[facility] [address] [place], [address] MCHC Normal 32-36 [facility] Comment on above: Result Comment: Canc elled via OM: Order cancelled - Patient discharged Performed By: #### L 500.2500, L100.0100 ####[facility] [address] [place], [address] MCV Normal 81-99 [facility] Comment on above: Result Comment: Canc elled via OM: Order cancelled - Patient discharged Performed By: #### L 500.2500, L100.0100 ####[facility] [address] [place], [address] NEUT% Normal 47-70 [facility] Comment on above: Result Comment: Canc elled via OM: Order cancelled - Patient discharged Performed By: #### L 500.2500, L100.0100 ####[facility] [address] [place], [address] PLT Normal 150-450 [facility] Comment on above: Result Comment: Canc elled via OM: Order cancelled - Patient discharged Performed By: #### L 500.2500, L100.0100 ####[facility] [address] [place], [address] RBC Normal 4.2-5.4 [facility] Comment on above: Result Comment: Canc elled via OM: Order cancelled - Patient discharged Performed By: #### L 500.2500, L100.0100 ####[facility] [address] [place], [address] RDW CV Normal 11.6-14.6 [facility] Comment on above: Result Comment: Canc elled via OM: Order cancelled - Patient discharged Performed By: #### L 500.2500, L100.0100 ####[facility] [address] [place], [address] RDW SD Normal 35.1-43.9 [facility] Comment on above: Result Comment: Canc elled via OM: Order cancelled - Patient discharged Performed By: #### L 500.2500, L100.0100 ####[facility] [address] [place], [address] WBC Normal 4.4-11.0 [facility] Comment on above: Result Comment: Canc elled via OM: Order cancelled - Patient discharged Performed By: #### L 500.2500, L100.0100 ####[facility] [address] [place], [address] Basic Metabolic Profile (BMP )on 02-21-2025 BUN Normal 4-19 [facility] Comment on above: Result Comment: Canc elled via OM: Order cancelled - Patient discharged Performed By: #### L 500.2500, L100.0100 ####[facility] [address] [place], [address] BUN/CRE Normal 10-20 [facility] Comment on above: Result Comment: Canc elled via OM: Order cancelled - Patient discharged Performed By: #### L 500.2500, L100.0100 ####[facility] [address] [place], [address] Calcium Normal 7.6-11.0 [facility] Comment on above: Result Comment: Canc elled via OM: Order cancelled - Patient discharged Performed By: #### L 500.2500, L100.0100 ####[facility] [address] [place], [address] CL Normal 98-108 [facility] Comment on above: Result Comment: Canc elled via OM: Order cancelled - Patient discharged Performed By: #### L 500.2500, L100.0100 ####[facility] [address] [place], [address] CO2 Normal 21.0-32.0 [facility] Comment on above: Result Comment: Canc elled via OM: Order cancelled - Patient discharged Performed By: #### L 500.2500, L100.0100 ####[facility] [address] [place], [address] CREAT,SERUM Normal 0.70-1.20 [facility] Comment on above: Result Comment: Canc elled via OM: Order cancelled - Patient discharged Performed By: #### L 500.2500, L100.0100 ####[facility] [address] [place], [address] eGFR Normal >60 [facility] Comment on above: Result Comment: Canc elled via OM: Order cancelled - Patient discharged Performed By: #### L 500.2500, L100.0100 ####[facility] [address] [place], [address] GAP Normal 5-15 [facility] Comment on above: Result Comment: Canc elled via OM: Order cancelled - Patient discharged Performed By: #### L 500.2500, L100.0100 ####[facility] [address] [place], [address] GLU Normal 70-99 [facility] Comment on above: Result Comment: Canc elled via OM: Order cancelled - Patient discharged Performed By: #### L 500.2500, L100.0100 ####[facility] [address] [place], [address] Potassium Normal 3.3-5.1 [facility] Comment on above: Result Comment: Canc elled via OM: Order cancelled - Patient discharged Performed By: #### L 500.2500, L100.0100 ####[facility] [address] [place], [address] Basic Metabolic Profile (BMP) Normal 133-145 [facility] Comment on above: Result Comment: Canc elled via OM: Order cancelled - Patient discharged Performed By: #### L 500.2500, L100.0100 ####[facility] [address] [place], [address] CBC W/Diff, Automatedon 06-2 Absolute Neut Normal 2.0-7.7 [facility] Comment on above: Result Comment: Canc elled via OM: Order cancelled - Patient discharged Performed By: #### L 500.2500, L100.0100 ####[facility] [address] [place], [address] HCT Normal 37-47 [facility] Comment on above: Result Comment: Canc elled via OM: Order cancelled - Patient discharged Performed By: #### L 500.2500, L100.0100 ####[facility] [address] [place], [address] HGB Normal 12.0-15.0 [facility] Comment on above: Result Comment: Canc elled via OM: Order cancelled - Patient discharged Performed By: #### L 500.2500, L100.0100 ####[facility] [address] [place], [address] MCH Normal 27.0-32.0 [facility] Comment on above: Result Comment: Canc elled via OM: Order cancelled - Patient discharged Performed By: #### L 500.2500, L100.0100 ####[facility] [address] [place], [address] MCHC Normal 32-36 [facility] Comment on above: Result Comment: Canc elled via OM: Order cancelled - Patient discharged Performed By: #### L 500.2500, L100.0100 ####[facility] [address] [place], [address] MCV Normal 81-99 [facility] Comment on above: Result Comment: Canc elled via OM: Order cancelled - Patient discharged Performed By: #### L 500.2500, L100.0100 ####[facility] [address] [place], [address] NEUT% Normal 47-70 [facility] Comment on above: Result Comment: Canc elled via OM: Order cancelled - Patient discharged Performed By: #### L 500.2500, L100.0100 ####[facility] [address] [place], [address] PLT Normal 150-450 [facility] Comment on above: Result Comment: Canc elled via OM: Order cancelled - Patient discharged Performed By: #### L 500.2500, L100.0100 ####[facility] [address] [place], [address] RBC Normal 4.2-5.4 [facility] Comment on above: Result Comment: Canc elled via OM: Order cancelled - Patient discharged Performed By: #### L 500.2500, L100.0100 ####[facility] [address] [place], [address] RDW CV Normal 11.6-14.6 [facility] Comment on above: Result Comment: Canc elled via OM: Order cancelled - Patient discharged Performed By: #### L 500.2500, L100.0100 ####[facility] [address] [place], [address] RDW SD Normal 35.1-43.9 [facility] Comment on above: Result Comment: Canc elled via OM: Order cancelled - Patient discharged Performed By: #### L 500.2500, L100.0100 ####[facility] [address] [place], [address] WBC Normal 4.4-11.0 [facility] Comment on above: Result Comment: Canc elled via OM: Order cancelled - Patient discharged Performed By: #### L 500.2500, L100.0100 ####[facility] [address] [place], [address] Basic Metabolic Profile (BMP )on 02-20-2025 BUN Normal 4-19 [facility] Comment on above: Result Comment: Canc elled via OM: Order cancelled - Patient discharged Performed By: #### L 100.0100, L500.2500 ####[facility] [address] [place], [address] BUN/CRE Normal 10-20 [facility] Comment on above: Result Comment: Canc elled via OM: Order cancelled - Patient discharged Performed By: #### L 100.0100, L500.2500 ####[facility] [address] [place], [address] Calcium Normal 7.6-11.0 [facility] Comment on above: Result Comment: Canc elled via OM: Order cancelled - Patient discharged Performed By: #### L 100.0100, L500.2500 ####[facility] [address] [place], [address] CL Normal 98-108 [facility] Comment on above: Result Comment: Canc elled via OM: Order cancelled - Patient discharged Performed By: #### L 100.0100, L500.2500 ####[facility] [address] [place], [address] CO2 Normal 21.0-32.0 [facility] Comment on above: Result Comment: Canc elled via OM: Order cancelled - Patient discharged Performed By: #### L 100.0100, L500.2500 ####[facility] [address] [place], [address] CREAT,SERUM Normal 0.70-1.20 [facility] Comment on above: Result Comment: Canc elled via OM: Order cancelled - Patient discharged Performed By: #### L 100.0100, L500.2500 ####[facility] [address] [place], [address] eGFR Normal >60 [facility] Comment on above: Result Comment: Canc elled via OM: Order cancelled - Patient discharged Performed By: #### L 100.0100, L500.2500 ####[facility] [address] [place], [address] GAP Normal 5-15 [facility] Comment on above: Result Comment: Canc elled via OM: Order cancelled - Patient discharged Performed By: #### L 100.0100, L500.2500 ####[facility] [address] [place], [address] GLU Normal 70-99 [facility] Comment on above: Result Comment: Canc elled via OM: Order cancelled - Patient discharged Performed By: #### L 100.0100, L500.2500 ####[facility] [address] [place], [address] Potassium Normal 3.3-5.1 [facility] Comment on above: Result Comment: Canc elled via OM: Order cancelled - Patient discharged Performed By: #### L 100.0100, L500.2500 ####[facility] [address] [place], [address] Basic Metabolic Profile (BMP) Normal 133-145 [facility] Comment on above: Result Comment: Canc elled via OM: Order cancelled - Patient discharged Performed By: #### L 100.0100, L500.2500 ####[facility] [address] [place], [address] Bedside Glucoseon - FINGERSTICK GLU 385 mg/dL High 74-106 [facility] Comment on above: Result Comment: KATARINA GEMENT OF PATIENT CARE PER NURSING PROTOCOL Performed By: #### L 501.080 ####[facility] [address] [place], [address] FINGERSTICK GLU 419 mg/dL High 74-106 [facility] Comment on above: Result Comment: KATARINA GEMENT OF PATIENT CARE PER NURSING PROTOCOL Performed By: #### L 501.080 ####[facility] [address] [place], [address] CBC W/Diff, Automatedon 06-2 Absolute Neut Normal 2.0-7.7 [facility] Comment on above: Result Comment: Canc elled via OM: Order cancelled - Patient discharged Performed By: #### L 100.0100, L500.2500 ####[facility] [address] [place], [address] HCT Normal 37-47 [facility] Comment on above: Result Comment: Canc elled via OM: Order cancelled - Patient discharged Performed By: #### L 100.0100, L500.2500 ####[facility] [address] [place], [address] HGB Normal 12.0-15.0 [facility] Comment on above: Result Comment: Canc elled via OM: Order cancelled - Patient discharged Performed By: #### L 100.0100, L500.2500 ####[facility] [address] [place], [address] MCH Normal 27.0-32.0 [facility] Comment on above: Result Comment: Canc elled via OM: Order cancelled - Patient discharged Performed By: #### L 100.0100, L500.2500 ####[facility] [address] [place], [address] MCHC Normal 32-36 [facility] Comment on above: Result Comment: Canc elled via OM: Order cancelled - Patient discharged Performed By: #### L 100.0100, L500.2500 ####[facility] [address] [place], [address] MCV Normal 81-99 [facility] Comment on above: Result Comment: Canc elled via OM: Order cancelled - Patient discharged Performed By: #### L 100.0100, L500.2500 ####[facility] [address] [place], [address] NEUT% Normal 47-70 [facility] Comment on above: Result Comment: Canc elled via OM: Order cancelled - Patient discharged Performed By: #### L 100.0100, L500.2500 ####[facility] [address] [place], [address] PLT Normal 150-450 [facility] Comment on above: Result Comment: Canc elled via OM: Order cancelled - Patient discharged Performed By: #### L 100.0100, L500.2500 ####[facility] [address] [place], [address] RBC Normal 4.2-5.4 [facility] Comment on above: Result Comment: Canc elled via OM: Order cancelled - Patient discharged Performed By: #### L 100.0100, L500.2500 ####[facility] [address] [place], [address] RDW CV Normal 11.6-14.6 [facility] Comment on above: Result Comment: Canc elled via OM: Order cancelled - Patient discharged Performed By: #### L 100.0100, L500.2500 ####[facility] [address] [place], [address] RDW SD Normal 35.1-43.9 [facility] Comment on above: Result Comment: Canc elled via OM: Order cancelled - Patient discharged Performed By: #### L 100.0100, L500.2500 ####[facility] [address] [place], [address] WBC Normal 4.4-11.0 [facility] Comment on above: Result Comment: Canc elled via OM: Order cancelled - Patient discharged Performed By: #### L 100.0100, L500.2500 ####[facility] [address] [place], [address] Basic Metabolic Profile (BMP )on 02-19-2025 BUN Normal 4-19 [facility] Comment on above: Result Comment: Canc elled via OM: Order cancelled - Patient discharged Performed By: #### L 500.2500, L100.0100 ####[facility] [address] [place], [address] BUN/CRE Normal 10-20 [facility] Comment on above: Result Comment: Canc elled via OM: Order cancelled - Patient discharged Performed By: #### L 500.2500, L100.0100 ####[facility] [address] [place], [address] Calcium Normal 7.6-11.0 [facility] Comment on above: Result Comment: Canc elled via OM: Order cancelled - Patient discharged Performed By: #### L 500.2500, L100.0100 ####[facility] [address] [place], [address] CL Normal 98-108 [facility] Comment on above: Result Comment: Canc elled via OM: Order cancelled - Patient discharged Performed By: #### L 500.2500, L100.0100 ####[facility] [address] [place], [address] CO2 Normal 21.0-32.0 [facility] Comment on above: Result Comment: Canc elled via OM: Order cancelled - Patient discharged Performed By: #### L 500.2500, L100.0100 ####[facility] [address] [place], [address] CREAT,SERUM Normal 0.70-1.20 [facility] Comment on above: Result Comment: Canc elled via OM: Order cancelled - Patient discharged Performed By: #### L 500.2500, L100.0100 ####[facility] [address] [place], [address] eGFR Normal >60 [facility] Comment on above: Result Comment: Canc elled via OM: Order cancelled - Patient discharged Performed By: #### L 500.2500, L100.0100 ####[facility] [address] [place], [address] GAP Normal 5-15 [facility] Comment on above: Result Comment: Canc elled via OM: Order cancelled - Patient discharged Performed By: #### L 500.2500, L100.0100 ####[facility] [address] [place], [address] GLU Normal 70-99 [facility] Comment on above: Result Comment: Canc elled via OM: Order cancelled - Patient discharged Performed By: #### L 500.2500, L100.0100 ####[facility] [address] [place], [address] Potassium Normal 3.3-5.1 [facility] Comment on above: Result Comment: Canc elled via OM: Order cancelled - Patient discharged Performed By: #### L 500.2500, L100.0100 ####[facility] [address] [place], [address] Basic Metabolic Profile (BMP) Normal 133-145 [facility] Comment on above: Result Comment: Canc elled via OM: Order cancelled - Patient discharged Performed By: #### L 500.2500, L100.0100 ####[facility] [address] [place], [address] CBC W/Diff, Automatedon 06-2 -2024 Absolute Neut Normal 2.0-7.7 [facility] Comment on above: Result Comment: Canc elled via OM: Order cancelled - Patient discharged Performed By: #### L 500.2500, L100.0100 ####[facility] [address] [place], [address] HCT Normal 37-47 [facility] Comment on above: Result Comment: Canc elled via OM: Order cancelled - Patient discharged Performed By: #### L 500.2500, L100.0100 ####[facility] [address] [place], [address] HGB Normal 12.0-15.0 [facility] Comment on above: Result Comment: Canc elled via OM: Order cancelled - Patient discharged Performed By: #### L 500.2500, L100.0100 ####[facility] [address] [place], [address] MCH Normal 27.0-32.0 [facility] Comment on above: Result Comment: Canc elled via OM: Order cancelled - Patient discharged Performed By: #### L 500.2500, L100.0100 ####[facility] [address] [place], [address] MCHC Normal 32-36 [facility] Comment on above: Result Comment: Canc elled via OM: Order cancelled - Patient discharged Performed By: #### L 500.2500, L100.0100 ####[facility] [address] [place], [address] MCV Normal 81-99 [facility] Comment on above: Result Comment: Canc elled via OM: Order cancelled - Patient discharged Performed By: #### L 500.2500, L100.0100 ####[facility] [address] [place], [address] NEUT% Normal 47-70 [facility] Comment on above: Result Comment: Canc elled via OM: Order cancelled - Patient discharged Performed By: #### L 500.2500, L100.0100 ####[facility] [address] [place], [address] PLT Normal 150-450 [facility] Comment on above: Result Comment: Canc elled via OM: Order cancelled - Patient discharged Performed By: #### L 500.2500, L100.0100 ####[facility] [address] [place], [address] RBC Normal 4.2-5.4 [facility] Comment on above: Result Comment: Canc elled via OM: Order cancelled - Patient discharged Performed By: #### L 500.2500, L100.0100 ####[facility] [address] [place], [address] RDW CV Normal 11.6-14.6 [facility] Comment on above: Result Comment: Canc elled via OM: Order cancelled - Patient discharged Performed By: #### L 500.2500, L100.0100 ####[facility] [address] [place], [address] RDW SD Normal 35.1-43.9 [facility] Comment on above: Result Comment: Canc elled via OM: Order cancelled - Patient discharged Performed By: #### L 500.2500, L100.0100 ####[facility] [address] [place], [address] WBC Normal 4.4-11.0 [facility] Comment on above: Result Comment: Canc elled via OM: Order cancelled - Patient discharged Performed By: #### L 500.2500, L100.0100 ####[facility] [address] [place], [address] 12 Lead EKGon 02-18-2025 12 Lead EKG Normal [facility] Absolute lymphocyte countOrd ered By: Billy Kothari on 02-18-2025 Lymphocytes Auto (Unsp spec) [#/Vol] 1.53 10*3/uL 0.83-4.51 [facility] Anion gap in Serum or Plasma Ordered By: Billy Kothari on 02-18-2025 Anion gap [Moles/Vol] 11 mmol/L 5-15 [facility] Automated lymphocyte count a s percentage of total leukocytesOrdered By: Billy Kothari on 02-18-2025 Lymphocytes/100 WBC Auto (Unsp spec) 12.5 % Low 19- [facility] BUN/creatinine ratioOrdered By: Billy Kothari on 02-18-2025 Urea nitrogen/Creatinine [Mass ratio] 19.9 mg/mg - [facility] Basic Metabolic Profile (BMP )on 02-18-2025 BUN/CRE 19.9 RATIO Normal - [facility] Comment on above: Performed By: #### L 500.2500, L100.0100 ####[facility] [address] [place], [address] Calcium [Mass/Vol] 10.7 mg/dL Normal 7.6-11.0 [facility] Comment on above: Performed By: #### L 500.2500, L100.0100 ####[facility] [address] [place], [address] Chloride [Moles/Vol] 97 mmol/L Low 98-108 [facility] Comment on above: Performed By: #### L 500.2500, L100.0100 ####[facility] [address] [place], [address] CO2 [Moles/Vol] 28.1 mmol/L Normal 21.0-32.0 [facility] Comment on above: Performed By: #### L 500.2500, L100.0100 ####[facility] [address] [place], [address] Creatinine [Mass/Vol] 1.26 mg/dL High 0.70-1.20 [facility] Comment on above: Performed By: #### L 500.2500, L100.0100 ####[facility] [address] [place], [address] ECRCL 34.58 ml/min Low 50-250 [facility] Comment on above: Performed By: #### L 500.2500, L100.0100 ####[facility] [address] [place], [address] GAP 11 Normal 5-15 [facility] Comment on above: Performed By: #### L 500.2500, L100.0100 ####[facility] [address] [place], [address] GFR/1.73 sq M.predicted among non-blacks MDRD (S/P/Bld) [Vol rate/Area] 43 mL/min/{1.73_m2} Low >60 [facility] Comment on above: Result Comment: mL/m in/1.73m2 CKD-EPI Creatinine Equation (2020) Performed By: #### L 500.2500, L100.0100 ####[facility] [address] [place], [address] Glucose [Mass/Vol] 174 mg/dL High 70-99 [facility] Comment on above: Performed By: #### L 500.2500, L100.0100 ####[facility] [address] [place], [address] Potassium [Moles/Vol] 6.0 mmol/L Invalid Interpretation Code 3.3-5.1 [facility] Comment on above: Result Comment: Hemo lysis present, Results??could be affected.??Critical Result(s) Called [facility] at: 2254 by:VIET??Results read back by same.Hemolysis present, Results??could be affected.?? Performed By: #### L 500.2500, L100.0100 ####[facility] [address] [place], [address] Sodium [Moles/Vol] 136 mmol/L Normal 133-145 [facility] Comment on above: Performed By: #### L 500.2500, L100.0100 ####[facility] [address] [place], [address] Urea nitrogen [Mass/Vol] 25 mg/dL High 4-19 [facility] Comment on above: Performed By: #### L 500.2500, L100.0100 ####[facility] [address] [place], [address] BUN Normal -19 [facility] Comment on above: Result Comment: Canc elled via OM: Order cancelled - Patient discharged Performed By: #### L 100.0100, L500.2500 ####[facility] [address] [place], [address] BUN/CRE Normal 10-20 [facility] Comment on above: Result Comment: Canc elled via OM: Order cancelled - Patient discharged Performed By: #### L 100.0100, L500.2500 ####[facility] [address] [place], [address] Calcium Normal 7.6-11.0 [facility] Comment on above: Result Comment: Canc elled via OM: Order cancelled - Patient discharged Performed By: #### L 100.0100, L500.2500 ####[facility] [address] [place], [address] CL Normal 98-108 [facility] Comment on above: Result Comment: Canc elled via OM: Order cancelled - Patient discharged Performed By: #### L 100.0100, L500.2500 ####[facility] [address] [place], [address] CO2 Normal 21.0-32.0 [facility] Comment on above: Result Comment: Canc elled via OM: Order cancelled - Patient discharged Performed By: #### L 100.0100, L500.2500 ####[facility] [address] [place], [address] CREAT,SERUM Normal 0.70-1.20 [facility] Comment on above: Result Comment: Canc elled via OM: Order cancelled - Patient discharged Performed By: #### L 100.0100, L500.2500 ####[facility] [address] [place], [address] eGFR Normal >60 [facility] Comment on above: Result Comment: Canc elled via OM: Order cancelled - Patient discharged Performed By: #### L 100.0100, L500.2500 ####[facility] [address] [place], [address] GAP Normal 5-15 [facility] Comment on above: Result Comment: Canc elled via OM: Order cancelled - Patient discharged Performed By: #### L 100.0100, L500.2500 ####[facility] [address] [place], [address] GLU Normal 70-99 [facility] Comment on above: Result Comment: Canc elled via OM: Order cancelled - Patient discharged Performed By: #### L 100.0100, L500.2500 ####[facility] [address] [place], [address] Potassium Normal 3.3-5.1 [facility] Comment on above: Result Comment: Canc elled via OM: Order cancelled - Patient discharged Performed By: #### L 100.0100, L500.2500 ####[facility] [address] [place], [address] Basic Metabolic Profile (BMP) Normal 133-145 [facility] Comment on above: Result Comment: Canc elled via OM: Order cancelled - Patient discharged Performed By: #### L 100.0100, L500.2500 ####[facility] [address] [place], [address] Basophil percentageOrdered B y: Billy Kothari on 02-18-2025 Basophils/100 WBC (Bld) 0.2 % 0-1 [facility] CBC W/Diff, Automatedon - Absolute Lymph 1.53 X10 3/uL Normal 0.83-4.51 [facility] Comment on above: Performed By: #### L 500.2500, L100.0100 ####[facility] [address] [place], [address] Absolute Neut 9.6 X10 3/uL High 2.0-7.7 [facility] Comment on above: Performed By: #### L 500.2500, L100.0100 ####[facility] [address] [place], [address] Basophils/100 WBC (Bld) 0.2 % Normal 0-1 [facility] Comment on above: Performed By: #### L 500.2500, L100.0100 ####[facility] [address] [place], [address] Eosinophils/100 WBC (Bld) 1.0 % Normal 0-5 [facility] Comment on above: Performed By: #### L 500.2500, L100.0100 ####[facility] [address] [place], [address] Erythrocyte distribution width (RBC) [Ratio] 15.9 % High 11.6-14.6 [facility] Comment on above: Performed By: #### L 500.2500, L100.0100 ####[facility] [address] [place], [address] Hematocrit (Bld) [Volume fraction] 35.8 % Low 37-47 [facility] Comment on above: Performed By: #### L 500.2500, L100.0100 ####[facility] [address] [place], [address] Hemoglobin (Bld) [Mass/Vol] 10.9 g/dL Low 12.0-15.0 [facility] Comment on above: Performed By: #### L 500.2500, L100.0100 ####[facility] [address] [place], [address] IG% 0.900 Normal 0.0-0.9 [facility] Comment on above: Result Comment: IG% - Immature Granulocytes (promyelocytes, myelocytes andmetamyelocytes) > 1% indicates that a LEFT SHIFT is Present. Performed By: #### L 500.2500, L100.0100 ####[facility] [address] [place], [address] Lymphocytes/100 WBC (Bld) 12.5 % Low 19-41 [facility] Comment on above: Performed By: #### L 500.2500, L100.0100 ####[facility] [address] [place], [address] MCH (RBC) [Entitic mass] 27.9 pg Normal 27.0-32.0 [facility] Comment on above: Performed By: #### L 500.2500, L100.0100 ####[facility] [address] [place], [address] MCHC (RBC) [Mass/Vol] 30.4 g/dL Low 32-36 [facility] Comment on above: Performed By: #### L 500.2500, L100.0100 ####[facility] [address] [place], [address] MCV (RBC) [Entitic vol] 91.6 fL Normal 81-99 [facility] Comment on above: Performed By: #### L 500.2500, L100.0100 ####[facility] [address] [place], [address] Monocytes/100 WBC (Bld) 6.7 % Normal 0-10 [facility] Comment on above: Performed By: #### L 500.2500, L100.0100 ####[facility] [address] [place], [address] Neutrophils/100 WBC (Bld) 78.7 % High 47-70 [facility] Comment on above: Performed By: #### L 500.2500, L100.0100 ####[facility] [address] [place], [address] Nucleated RBC (Bld) [#/Vol] 0 10*3/uL Normal 0-5 [facility] Comment on above: Performed By: #### L 500.2500, L100.0100 ####[facility] [address] [place], [address] Platelet mean volume (Bld) [Entitic vol] 11.5 fL Normal 6.2-12.0 [facility] Comment on above: Performed By: #### L 500.2500, L100.0100 ####[facility] [address] [place], [address] Platelets (Bld) [#/Vol] 337 10*3/uL Normal 150-450 [facility] Comment on above: Performed By: #### L 500.2500, L100.0100 ####[facility] [address] [place], [address] RBC (Bld) [#/Vol] 3.91 10*6/uL Low 4.2-5.4 [facility] Comment on above: Performed By: #### L 500.2500, L100.0100 ####[facility] [address] [place], [address] RDW SD 52.1 fl High 35.1-43.9 [facility] Comment on above: Performed By: #### L 500.2500, L100.0100 ####[facility] [address] [place], [address] WBC (Bld) [#/Vol] 12.2 10*3/uL High 4.4-11.0 [facility] Comment on above: Performed By: #### L 500.2500, L100.0100 ####[facility] [address] [place], [address] Absolute Neut Normal 2.0-7.7 [facility] Comment on above: Result Comment: Canc elled via OM: Order cancelled - Patient discharged Performed By: #### L 100.0100, L500.2500 ####[facility] [address] [place], [address] HCT Normal 37-47 [facility] Comment on above: Result Comment: Canc elled via OM: Order cancelled - Patient discharged Performed By: #### L 100.0100, L500.2500 ####[facility] [address] [place], [address] HGB Normal 12.0-15.0 [facility] Comment on above: Result Comment: Canc elled via OM: Order cancelled - Patient discharged Performed By: #### L 100.0100, L500.2500 ####[facility] [address] [place], [address] MCH Normal 27.0-32.0 [facility] Comment on above: Result Comment: Canc elled via OM: Order cancelled - Patient discharged Performed By: #### L 100.0100, L500.2500 ####[facility] [address] [place], [address] MCHC Normal 32-36 [facility] Comment on above: Result Comment: Canc elled via OM: Order cancelled - Patient discharged Performed By: #### L 100.0100, L500.2500 ####[facility] [address] [place], [address] MCV Normal 81-99 [facility] Comment on above: Result Comment: Canc elled via OM: Order cancelled - Patient discharged Performed By: #### L 100.0100, L500.2500 ####[facility] [address] [place], [address] NEUT% Normal 47-70 [facility] Comment on above: Result Comment: Canc elled via OM: Order cancelled - Patient discharged Performed By: #### L 100.0100, L500.2500 ####[facility] [address] [place], [address] PLT Normal 150-450 [facility] Comment on above: Result Comment: Canc elled via OM: Order cancelled - Patient discharged Performed By: #### L 100.0100, L500.2500 ####[facility] [address] [place], [address] RBC Normal 4.2-5.4 [facility] Comment on above: Result Comment: Canc elled via OM: Order cancelled - Patient discharged Performed By: #### L 100.0100, L500.2500 ####[facility] [address] [place], [address] RDW CV Normal 11.6-14.6 [facility] Comment on above: Result Comment: Canc elled via OM: Order cancelled - Patient discharged Performed By: #### L 100.0100, L500.2500 ####[facility] [address] [place], [address] RDW SD Normal 35.1-43.9 [facility] Comment on above: Result Comment: Canc elled via OM: Order cancelled - Patient discharged Performed By: #### L 100.0100, L500.2500 ####[facility] [address] [place], [address] WBC Normal 4.4-11.0 [facility] Comment on above: Result Comment: Canc elled via OM: Order cancelled - Patient discharged Performed By: #### L 100.0100, L500.2500 ####[facility] [address] [place], [address] Carbon dioxide, total [Moles /volume] in Central venous bloodOrdered By: Billy Kothari on 02-18-2025 CO2 [Moles/Vol] 28.1 mmol/L 21.0-32.0 [facility] Chest 1 View (Portable)on Chest 1 View (Portable) Normal [facility] Chloride assayOrdered By: Dante Kothari on 02-18-2025 Chloride [Moles/Vol] 97 mmol/L Low 98-108 [facility] Emergency Department Summary on 02-18-2025 Emergency Department Summary Normal [facility] Eosinophil percentageOrdered By: Billy Kothari on 02-18-2025 Eosinophils/100 WBC (Bld) 1.0 % 0-5 [facility] Erythrocyte distribution wid th ratioOrdered By: Billy Kothari on 02-18-2025 Erythrocyte distribution width (RBC) [Ratio] 15.9 % High 11.6-14.6 [facility] Erythrocyte distribution wid th standard deviationOrdered By: Billy Kothari on 02-18-2025 Erythrocyte distribution width (RBC) [Ratio] 52.1 fl High 35.1-43.9 [facility] Glomerular filtration rate ( GFR) estimation/1.73 sq m using serum, plasma, or whole bOrdered By: Billy Kothari on 02-18-2025 GFR/1.73 sq M.predicted among non-blacks MDRD (S/P/Bld) [Vol rate/Area] 43 mL/min/{1.73_m2} Low >60 [facility] Hematocrit Auto (Bld) [Volum e fraction]Ordered By: Billy Kothari on 02-18-2025 Hematocrit (Bld) [Volume fraction] 35.8 % Low 37-47 [facility] Hemoglobin measurementOrdere d By: Billy Kothari on 02-18-2025 Hemoglobin (Bld) [Mass/Vol] 10.9 g/dL Low 12.0-15.0 [facility] Immature granulocytes/100 WB C Auto (Bld)Ordered By: Billy Kothari on 02-18-2025 Immature granulocytes/100 WBC (Bld) 0.900 % 0.0-0.9 [facility] L503.7505on 02-18-2025 Natriuretic peptide B (Bld) [Mass/Vol] 3811 pg/mL High <=1800 [facility] Comment on above: Result Comment: Hear t Failure Unlikely: < 300 pg/mLHeart Failure Likely< 50 Years: > 450 pg/mL50-75 Years: > 900 pg/mL>75 Years: > 1800 pg/mL Performed By: #### L 503.7505 ####[facility] [address] [place], [address] MCV (mean corpuscular volume ) determinationOrdered By: Billy Kothari on 02-18-2025 MCV (RBC) [Entitic vol] 91.6 fL 81-99 [facility] Mean corpuscular hemoglobin (MCH) determinationOrdered By: Billy Kothari on 02-18-2025 MCH (RBC) [Entitic mass] 27.9 pg 27.0-32.0 [facility] Monocyte percentageOrdered B y: Billy Kothari on 02-18-2025 Monocytes/100 WBC (Bld) 6.7 % 0-10 [facility] Natriuretic peptide.B prohor hayley N-Terminal [Mass/volume] in Serum or PlasmaOrdered By: Billy Kothari on 02-18-2025 Natriuretic peptide.B prohormone N-Terminal [Mass/Vol] 3811 pg/mL High <1800 [facility] Neutrophil percentageOrdered By: Billy Kothari on 02-18-2025 Neutrophils/100 WBC (Bld) 78.7 % High 47-70 [facility] Platelet countOrdered By: Dante Kothari on 02-18-2025 Platelets (Bld) [#/Vol] 337 10*3/uL 150-450 [facility] Potassiumon 02-18-2025 Potassium [Moles/Vol] 4.7 mmol/L Normal 3.3-5.1 [facility] Comment on above: Performed By: #### L 501.5600 ####[facility] [address] [place], [place], [address] Potassium measurement (mass/ volume)Ordered By: Billy Kothari on 02-18-2025 Potassium (Unsp spec) [Mass/Vol] 4.7 mmol/L 3.3-5.1 [facility] RBC Auto (Bld) [#/Vol]Ordere d By: Billy Kothari on 02-18-2025 RBC (Bld) [#/Vol] 3.91 10*6/uL Low 4.2-5.4 [facility] Respiratory Cultureon 2024 RESPC Mixed normal respiratory karin. No Streptococcus pneumoniae, beta-hemolytic Streptococcus or Staphylococcus aureus isolated. Normal [facility] Comment on above: Performed By: #### M 100.2000, M100.2400 ####[facility] [address] [place], [place], [address] Serum creatinine measurement (mass/volume)Ordered By: Billy Kothari on 02-18-2025 Creatinine [Mass/Vol] 1.26 mg/dL High 0.70-1.20 [facility] Serum glucose measurement (m ass/volume)Ordered By: Billy Kothari on 02-18-2025 Glucose [Mass/Vol] 174 mg/dL High 70-99 [facility] Serum or plasma calcium melanie urement (mass/volume)Ordered By: Billy Kothari on 02-18-2025 Calcium [Mass/Vol] 10.7 mg/dL 7.6-11.0 [facility] Serum or plasma urea nitroge n measurement (mass/volume)Ordered By: Billy Kothari on 02-18-2025 Urea nitrogen [Mass/Vol] 25 mg/dL High 4-19 [facility] Sodium levelOrdered By: Billy Kothari on 02-18-2025 Sodium [Moles/Vol] 136 mmol/L 133-145 [facility] White blood cell (WBC) count Ordered By: Billy Kothari on 02-18-2025 WBC (Bld) [#/Vol] 12.2 10*3/uL High 4.4-11.0 [facility] Absolute lymphocyte countOrd ered By: Heydi Amaya on 02-17-2025 Lymphocytes Auto (Unsp spec) [#/Vol] 0.58 10*3/uL Low 0.83-4.51 [facility] Anion gap in Serum or Plasma Ordered By: Heydi Amaya on 02-17-2025 Anion gap [Moles/Vol] 12 mmol/L 5-15 [facility] Automated lymphocyte count a s percentage of total leukocytesOrdered By: Heydi Amaya on 02-17-2025 Lymphocytes/100 WBC Auto (Unsp spec) 7.8 % Low 19-41 [facility] BUN/creatinine ratioOrdered By: Heydi Amaya on 02-17-2025 Urea nitrogen/Creatinine [Mass ratio] 23.0 mg/mg High 10- [facility] Basic Metabolic Profile (BMP )on 02-17-2025 BUN/CRE 23.0 RATIO High 06-19 [facility] Comment on above: Performed By: #### L 500.2500, L100.0100 ####[facility] [address] [place], [address] Calcium [Mass/Vol] 10.3 mg/dL Normal 7.6-11.0 [facility] Comment on above: Performed By: #### L 500.2500, L100.0100 ####[facility] [address] [place], [address] Chloride [Moles/Vol] 98 mmol/L Normal 98-108 [facility] Comment on above: Performed By: #### L 500.2500, L100.0100 ####[facility] [address] [place], [address] CO2 [Moles/Vol] 23.5 mmol/L Normal 21.0-32.0 [facility] Comment on above: Performed By: #### L 500.2500, L100.0100 ####[facility] [address] [place], [address] Creatinine [Mass/Vol] 1.15 mg/dL Normal 0.70-1.20 [facility] Comment on above: Performed By: #### L 500.2500, L100.0100 ####[facility] [address] [place], [address] ECRCL 37.29 ml/min Low 50-250 [facility] Comment on above: Performed By: #### L 500.2500, L100.0100 ####[facility] [address] [place], [address] GAP 12 Normal 5-15 [facility] Comment on above: Performed By: #### L 500.2500, L100.0100 ####[facility] [address] [place], [address] GFR/1.73 sq M.predicted among non-blacks MDRD (S/P/Bld) [Vol rate/Area] 48 mL/min/{1.73_m2} Low >60 [facility] Comment on above: Result Comment: mL/m in/1.73m2 CKD-EPI Creatinine Equation (2020) Performed By: #### L 500.2500, L100.0100 ####[facility] [address] [place], [address] Glucose [Mass/Vol] 426 mg/dL High 70-99 [facility] Comment on above: Performed By: #### L 500.2500, L100.0100 ####[facility] [address] [place], [address] Potassium [Moles/Vol] 5.3 mmol/L High 3.3-5.1 [facility] Comment on above: Performed By: #### L 500.2500, L100.0100 ####[facility] [address] [place], [address] Sodium [Moles/Vol] 134 mmol/L Normal 133-145 [facility] Comment on above: Performed By: #### L 500.2500, L100.0100 ####[facility] [address] [place], [address] Urea nitrogen [Mass/Vol] 27 mg/dL High 4-19 [facility] Comment on above: Performed By: #### L 500.2500, L100.0100 ####[facility] [address] [place], [address] Basophil percentageOrdered B y: Heydi Amaya on 02-17-2025 Basophils/100 WBC (Bld) 0.1 % 0-1 [facility] Bedside Glucoseon 02-17-2025 FINGERSTICK GLU 241 mg/dL High 74-106 [facility] Comment on above: Result Comment: KATARINA GARY OF PATIENT CARE PER NURSING PROTOCOL Performed By: #### L 501.080 ####[facility] [address] [place], [address] FINGERSTICK GLU 419 mg/dL High 74-106 [facility] Comment on above: Result Comment: KATARINA GEMENT OF PATIENT CARE PER NURSING PROTOCOL Performed By: #### L 501.080 ####[facility] [address] [place], [address] FINGERSTICK GLU 488 mg/dL Invalid Interpretation Code 74-106 [facility] Comment on above: Result Comment: KATARINA GEMENT OF PATIENT CARE PER NURSING PROTOCOL Performed By: #### L 501.080 ####[facility] [address] [place], [address] CBC W/Diff, Automatedon 06-2 0-2024 Absolute Lymph 0.58 X10 3/uL Low 0.83-4.51 [facility] Comment on above: Performed By: #### L 500.2500, L100.0100 ####[facility] [address] [place], [address] Absolute Neut 6.4 X10 3/uL Normal 2.0-7.7 [facility] Comment on above: Performed By: #### L 500.2500, L100.0100 ####[facility] [address] [place], [address] Basophils/100 WBC (Bld) 0.1 % Normal 0-1 [facility] Comment on above: Performed By: #### L 500.2500, L100.0100 ####[facility] [address] [place], [address] Eosinophils/100 WBC (Bld) 0.1 % Normal 0-5 [facility] Comment on above: Performed By: #### L 500.2500, L100.0100 ####[facility] [address] [place], [address] Erythrocyte distribution width (RBC) [Ratio] 15.6 % High 11.6-14.6 [facility] Comment on above: Performed By: #### L 500.2500, L100.0100 ####[facility] [address] [place], [address] Hematocrit (Bld) [Volume fraction] 32.6 % Low 37-47 [facility] Comment on above: Performed By: #### L 500.2500, L100.0100 ####[facility] [address] [place], [address] Hemoglobin (Bld) [Mass/Vol] 9.9 g/dL Low 12.0-15.0 [facility] Comment on above: Performed By: #### L 500.2500, L100.0100 ####[facility] [address] [place], [address] IG% 0.900 Normal 0.0-0.9 [facility] Comment on above: Result Comment: IG% - Immature Granulocytes (promyelocytes, myelocytes andmetamyelocytes) > 1% indicates that a LEFT SHIFT is Present. Performed By: #### L 500.2500, L100.0100 ####[facility] [address] [place], [address] Lymphocytes/100 WBC (Bld) 7.8 % Low 19-41 [facility] Comment on above: Performed By: #### L 500.2500, L100.0100 ####[facility] [address] [place], [address] MCH (RBC) [Entitic mass] 27.7 pg Normal 27.0-32.0 [facility] Comment on above: Performed By: #### L 500.2500, L100.0100 ####[facility] [address] [place], [address] MCHC (RBC) [Mass/Vol] 30.4 g/dL Low 32-36 [facility] Comment on above: Performed By: #### L 500.2500, L100.0100 ####[facility] [address] [place], [address] MCV (RBC) [Entitic vol] 91.3 fL Normal 81-99 [facility] Comment on above: Performed By: #### L 500.2500, L100.0100 ####[facility] [address] [place], [address] Monocytes/100 WBC (Bld) 5.0 % Normal 0-10 [facility] Comment on above: Performed By: #### L 500.2500, L100.0100 ####[facility] [address] [place], [address] Neutrophils/100 WBC (Bld) 86.1 % High 47-70 [facility] Comment on above: Performed By: #### L 500.2500, L100.0100 ####[facility] [address] [place], [address] Nucleated RBC (Bld) [#/Vol] 0 10*3/uL Normal 0-5 [facility] Comment on above: Performed By: #### L 500.2500, L100.0100 ####[facility] [address] [place], [address] Platelet mean volume (Bld) [Entitic vol] 11.2 fL Normal 6.2-12.0 [facility] Comment on above: Performed By: #### L 500.2500, L100.0100 ####[facility] [address] [place], [address] Platelets (Bld) [#/Vol] 246 10*3/uL Normal 150-450 [facility] Comment on above: Performed By: #### L 500.2500, L100.0100 ####[facility] [address] [place], [address] RBC (Bld) [#/Vol] 3.57 10*6/uL Low 4.2-5.4 [facility] Comment on above: Performed By: #### L 500.2500, L100.0100 ####[facility] [address] [place], [address] RDW SD 51.5 fl High 35.1-43.9 [facility] Comment on above: Performed By: #### L 500.2500, L100.0100 ####[facility] [address] [place], [address] WBC (Bld) [#/Vol] 7.5 10*3/uL Normal 4.4-11.0 [facility] Comment on above: Performed By: #### L 500.2500, L100.0100 ####[facility] [address] [place], [address] Carbon dioxide, total [Moles /volume] in Central venous bloodOrdered By: Heydi Amaya on 02-17-2025 CO2 [Moles/Vol] 23.5 mmol/L 21.0-32.0 [facility] Chloride assayOrdered By: Davy Amaya on 02-17-2025 Chloride [Moles/Vol] 98 mmol/L 98-108 [facility] Electrocardiogram reportOrde red By: Marcelina Soto on 02-17-2025 EKG study [facility] Work Phone: Eosinophil percentageOrdered By: Heydi Amaya on 02-17-2025 Eosinophils/100 WBC (Bld) 0.1 % 0-5 [facility] Erythrocyte distribution wid th ratioOrdered By: Heydi Amaya on 02-17-2025 Erythrocyte distribution width (RBC) [Ratio] 15.6 % High 11.6-14.6 [facility] Erythrocyte distribution wid th standard deviationOrdered By: Heydi Amaya on 02-17-2025 Erythrocyte distribution width (RBC) [Ratio] 51.5 fl High 35.1-43.9 [facility] Glomerular filtration rate ( GFR) estimation/1.73 sq m using serum, plasma, or whole bOrdered By: Heydi Amaya on 02-17-2025 GFR/1.73 sq M.predicted among non-blacks MDRD (S/P/Bld) [Vol rate/Area] 48 mL/min/{1.73_m2} Low >60 [facility] deOrdered By: Heydi Amaya on 02-17-2025 Glucose [Mass/Vol] 241 mg/dL High 74-106 [facility] Hematocrit Auto (Bld) [Volum e fraction]Ordered By: Heydi Amaya on 02-17-2025 Hematocrit (Bld) [Volume fraction] 32.6 % Low 37-47 [facility] Hemoglobin measurementOrdere d By: Heydi Amaya on 02-17-2025 Hemoglobin (Bld) [Mass/Vol] 9.9 g/dL Low 12.0-15.0 [facility] Immature granulocytes/100 WB C Auto (Bld)Ordered By: Heydi Amaya on 02-17-2025 Immature granulocytes/100 WBC (Bld) 0.900 % 0.0-0.9 [facility] MCV (mean corpuscular volume ) determinationOrdered By: Heydi Amaya on 02-17-2025 MCV (RBC) [Entitic vol] 91.3 fL 81-99 [facility] Mean corpuscular hemoglobin (MCH) determinationOrdered By: Heydi Amaya on 02-17-2025 MCH (RBC) [Entitic mass] 27.7 pg 27.0-32.0 [facility] Monocyte percentageOrdered B y: Heydi Amaya on 02-17-2025 Monocytes/100 WBC (Bld) 5.0 % 0-10 [facility] Neutrophil percentageOrdered By: Heydi Amaya on 02-17-2025 Neutrophils/100 WBC (Bld) 86.1 % High 47-70 [facility] Platelet countOrdered By: Davy Amaya on 02-17-2025 Platelets (Bld) [#/Vol] 246 10*3/uL 150-450 [facility] Potassium measurement (mass/ volume)Ordered By: Heydi Amaya on 02-17-2025 Potassium (Unsp spec) [Mass/Vol] 5.3 mmol/L High 3.3-5.1 [facility] RBC Auto (Bld) [#/Vol]Ordere d By: Heydi Amaya on 02-17-2025 RBC (Bld) [#/Vol] 3.57 10*6/uL Low 4.2-5.4 [facility] Serum creatinine measurement (mass/volume)Ordered By: Heydi Amaya on 02-17-2025 Creatinine [Mass/Vol] 1.15 mg/dL 0.70-1.20 [facility] Serum glucose measurement (m ass/volume)Ordered By: Heydi Amaya on 02-17-2025 Glucose [Mass/Vol] 426 mg/dL High 70-99 [facility] Serum or plasma calcium melanie urement (mass/volume)Ordered By: Heydi Amaya on 02-17-2025 Calcium [Mass/Vol] 10.3 mg/dL 7.6-11.0 [facility] Serum or plasma urea nitroge n measurement (mass/volume)Ordered By: Heydi Amaya on 02-17-2025 Urea nitrogen [Mass/Vol] 27 mg/dL High 4-19 [facility] Sodium levelOrdered By: Rodolfo Amaya on 02-17-2025 Sodium [Moles/Vol] 134 mmol/L 133-145 [facility] White blood cell (WBC) count Ordered By: Heydi Amaya on 02-17-2025 WBC (Bld) [#/Vol] 7.5 10*3/uL 4.4-11.0 [facility] Basic Metabolic Profile (BMP )on 02-16-2025 BUN/CRE 22.0 RATIO High 10-20 [facility] Comment on above: Performed By: #### L 500.2500, L100.0500 ####[facility] [address] [place], [address] Calcium [Mass/Vol] 10.7 mg/dL Normal 7.6-11.0 [facility] Comment on above: Performed By: #### L 500.2500, L100.0500 ####[facility] [address] [place], [address] Chloride [Moles/Vol] 97 mmol/L Low 98-108 [facility] Comment on above: Performed By: #### L 500.2500, L100.0500 ####[facility] [address] [place], [address] CO2 [Moles/Vol] 29.5 mmol/L Normal 21.0-32.0 [facility] Comment on above: Performed By: #### L 500.2500, L100.0500 ####[facility] [address] [place], [address] Creatinine [Mass/Vol] 0.97 mg/dL Normal 0.70-1.20 [facility] Comment on above: Performed By: #### L 500.2500, L100.0500 ####[facility] [address] [place], [address] ECRCL 44.69 ml/min Low 50-250 [facility] Comment on above: Performed By: #### L 500.2500, L100.0500 ####[facility] [address] [place], [address] GAP 12 Normal 5-15 [facility] Comment on above: Performed By: #### L 500.2500, L100.0500 ####[facility] [address] [place], [address] GFR/1.73 sq M.predicted among non-blacks MDRD (S/P/Bld) [Vol rate/Area] 58 mL/min/{1.73_m2} Low >60 [facility] Comment on above: Result Comment: mL/m in/1.73m2 CKD-EPI Creatinine Equation (2020) Performed By: #### L 500.2500, L100.0500 ####[facility] [address] [place], [address] Glucose [Mass/Vol] 98 mg/dL Normal 70-99 [facility] Comment on above: Performed By: #### L 500.2500, L100.0500 ####[facility] [address] [place], [address] Potassium [Moles/Vol] 4.7 mmol/L Normal 3.3-5.1 [facility] Comment on above: Performed By: #### L 500.2500, L100.0500 ####[facility] [address] [place], [address] Sodium [Moles/Vol] 138 mmol/L Normal 133-145 [facility] Comment on above: Performed By: #### L 500.2500, L100.0500 ####[facility] [address] [place], [address] Urea nitrogen [Mass/Vol] 21 mg/dL High -19 [facility] Comment on above: Performed By: #### L 500.2500, L100.0500 ####[facility] [address] [place], [address] Bedside Glucoseon 02-16-2025 FINGERSTICK GLU 254 mg/dL High 74-106 [facility] Comment on above: Result Comment: KATARINA GEMENT OF PATIENT CARE PER NURSING PROTOCOL Performed By: #### L 501.080 ####[facility] [address] [place], [address] FINGERSTICK GLU 234 mg/dL High 74-106 [facility] Comment on above: Result Comment: KATARINA GEMENT OF PATIENT CARE PER NURSING PROTOCOL Performed By: #### L 501.080 ####[facility] [address] [place], [address] FINGERSTICK GLU 91 mg/dL Normal 74-106 [facility] Comment on above: Result Comment: KATARINA GEMENT OF PATIENT CARE PER NURSING PROTOCOL Performed By: #### L 501.080 ####[facility] [address] [place], [address] FINGERSTICK GLU 63 mg/dL Low 74-106 [facility] Comment on above: Result Comment: KATARINA GEMENT OF PATIENT CARE PER NURSING PROTOCOL Performed By: #### L 501.080 ####[facility] [address] [place], [address] CBC-Complete Blood Cnt No Di ffon 02-16-2025 Erythrocyte distribution width (RBC) [Ratio] 16.1 % High 11.6-14.6 [facility] Comment on above: Performed By: #### L 500.2500, L100.0500 ####[facility] [address] [place], [address] Hematocrit (Bld) [Volume fraction] 36.2 % Low 37-47 [facility] Comment on above: Performed By: #### L 500.2500, L100.0500 ####[facility] [address] [place], [address] Hemoglobin (Bld) [Mass/Vol] 11.0 g/dL Low 12.0-15.0 [facility] Comment on above: Performed By: #### L 500.2500, L100.0500 ####[facility] [address] [place], [address] MCH (RBC) [Entitic mass] 27.4 pg Normal 27.0-32.0 [facility] Comment on above: Performed By: #### L 500.2500, L100.0500 ####[facility] [address] [place], [address] MCHC (RBC) [Mass/Vol] 30.4 g/dL Low 32-36 [facility] Comment on above: Performed By: #### L 500.2500, L100.0500 ####[facility] [address] [place], [address] MCV (RBC) [Entitic vol] 90.0 fL Normal 81-99 [facility] Comment on above: Performed By: #### L 500.2500, L100.0500 ####[facility] [address] [place], [address] Platelet mean volume (Bld) [Entitic vol] 11.0 fL Normal 6.2-12.0 [facility] Comment on above: Performed By: #### L 500.2500, L100.0500 ####[facility] [address] [place], [address] Platelets (Bld) [#/Vol] 250 10*3/uL Normal 150-450 [facility] Comment on above: Performed By: #### L 500.2500, L100.0500 ####[facility] [address] [place], [address] RBC (Bld) [#/Vol] 4.02 10*6/uL Low 4.2-5.4 [facility] Comment on above: Performed By: #### L 500.2500, L100.0500 ####[facility] [address] [place], [address] RDW SD 52.3 fl High 35.1-43.9 [facility] Comment on above: Performed By: #### L 500.2500, L100.0500 ####[facility] [address] [place], [address] WBC (Bld) [#/Vol] 9.2 10*3/uL Normal 4.4-11.0 [facility] Comment on above: Performed By: #### L 500.2500, L100.0500 ####[facility] [address] [place], [address] Gram Stainon 02-16-2025 GS Acceptable Specimen? Yes (<25 Epithelial cells per/lpf) Gram Stain Rare Gram positive cocci Rare Gram positive rods No Epithelial cells Rare White Blood Cells Normal [facility] Comment on above: Performed By: #### M 100.2000, M100.2400 ####[facility] [address] [place], [address] Gram stainOrdered By: Ankit Jean-Baptiste on 02-16-2025 Microscopic observation Gram stain Nom (Unsp spec) [facility] Microbial respiratory cultur eOrdered By: Nestor Bartlett on 02-16-2025 Microorganism identified Cx Nom (Unsp spec) or Staphylococcus aureus isolated. [facility] 12 Lead EKGon 02-15-2025 12 Lead EKG Normal [facility] Absolute lymphocyte countOrd ered By: Remus Ungur on 02-15-2025 Lymphocytes Auto (Unsp spec) [#/Vol] 0.98 10*3/uL 0.83-4.51 [facility] Anion gap in Serum or Plasma Ordered By: Remus Ungur on 02-15-2025 Anion gap [Moles/Vol] 9 mmol/L 5-15 [facility] Automated lymphocyte count a s percentage of total leukocytesOrdered By: Remus Ungur on 02-15-2025 Lymphocytes/100 WBC Auto (Unsp spec) 10.9 % Low 19-41 [facility] BUN/creatinine ratioOrdered By: Remus Ungur on 02-15-2025 Urea nitrogen/Creatinine [Mass ratio] 23.1 mg/mg High 10-20 [facility] Basic Metabolic Profile (BMP )on 02-15-2025 BUN/CRE 23.1 RATIO High 10-20 [facility] Comment on above: Performed By: #### L 500.2500, L503.7505, L501.4021, L100.0100 ####[facility] [address] [place], [address] Calcium [Mass/Vol] 10.7 mg/dL Normal 7.6-11.0 [facility] Comment on above: Performed By: #### L 500.2500, L503.7505, L501.4021, L100.0100 ####[facility] [address] [place], [address] Chloride [Moles/Vol] 98 mmol/L Normal 98-108 [facility] Comment on above: Performed By: #### L 500.2500, L503.7505, L501.4021, L100.0100 ####[facility] [address] [place], [address] CO2 [Moles/Vol] 30.9 mmol/L Normal 21.0-32.0 [facility] Comment on above: Performed By: #### L 500.2500, L503.7505, L501.4021, L100.0100 ####[facility] [address] [place], [address] Creatinine [Mass/Vol] 1.04 mg/dL Normal 0.70-1.20 [facility] Comment on above: Performed By: #### L 500.2500, L503.7505, L501.4021, L100.0100 ####[facility] [address] [place], [address] ECRCL 41.98 ml/min Low 50-250 [facility] Comment on above: Performed By: #### L 500.2500, L503.7505, L501.4021, L100.0100 ####[facility] [address] [place], [address] GAP 9 Normal 5-15 [facility] Comment on above: Performed By: #### L 500.2500, L503.7505, L501.4021, L100.0100 ####[facility] [address] [place], [address] GFR/1.73 sq M.predicted among non-blacks MDRD (S/P/Bld) [Vol rate/Area] 54 mL/min/{1.73_m2} Low >60 [facility] Comment on above: Result Comment: mL/m in/1.73m2 CKD-EPI Creatinine Equation (2020) Performed By: #### L 500.2500, L503.7505, L501.4021, L100.0100 ####[facility] [address] [place], [address] Glucose [Mass/Vol] 97 mg/dL Normal 70-99 [facility] Comment on above: Performed By: #### L 500.2500, L503.7505, L501.4021, L100.0100 ####[facility] [address] [place], [address] Potassium [Moles/Vol] 4.3 mmol/L Normal 3.3-5.1 [facility] Comment on above: Performed By: #### L 500.2500, L503.7505, L501.4021, L100.0100 ####[facility] [address] [place], [address] Sodium [Moles/Vol] 138 mmol/L Normal 133-145 [facility] Comment on above: Performed By: #### L 500.2500, L503.7505, L501.4021, L100.0100 ####[facility] [address] [place], [address] Urea nitrogen [Mass/Vol] 24 mg/dL High 4-19 [facility] Comment on above: Performed By: #### L 500.2500, L503.7505, L501.4021, L100.0100 ####[facility] [address] [place], [address] Basophil percentageOrdered B y: Remus Ungur on 02-15-2025 Basophils/100 WBC (Bld) 0.1 % 0-1 [facility] Bedside Glucoseon 02-15-2025 FINGERSTICK GLU 152 mg/dL High 74-106 [facility] Comment on above: Result Comment: KATARINA GEMENT OF PATIENT CARE PER NURSING PROTOCOL Performed By: #### L 501.080 ####[facility] [address] [place], [address] FINGERSTICK GLU 80 mg/dL Normal 74-106 [facility] Comment on above: Result Comment: KATARINA GEMENT OF PATIENT CARE PER NURSING PROTOCOL Performed By: #### L 501.080 ####[facility] [address] [place], [address] CBC W/Diff, Automatedon 01-29 Absolute Lymph 0.98 X10 3/uL Normal 0.83-4.51 [facility] Comment on above: Performed By: #### L 500.2500, L503.7505, L501.4021, L100.0100 ####[facility] [address] [place], [address] Absolute Neut 7.5 X10 3/uL Normal 2.0-7.7 [facility] Comment on above: Performed By: #### L 500.2500, L503.7505, L501.4021, L100.0100 ####[facility] [address] [place], [address] Basophils/100 WBC (Bld) 0.1 % Normal 0-1 [facility] Comment on above: Performed By: #### L 500.2500, L503.7505, L501.4021, L100.0100 ####[facility] [address] [place], [address] Eosinophils/100 WBC (Bld) 0.7 % Normal 0-5 [facility] Comment on above: Performed By: #### L 500.2500, L503.7505, L501.4021, L100.0100 ####[facility] [address] [place], [address] Erythrocyte distribution width (RBC) [Ratio] 16.2 % High 11.6-14.6 [facility] Comment on above: Performed By: #### L 500.2500, L503.7505, L501.4021, L100.0100 ####[facility] [address] [place], [address] Hematocrit (Bld) [Volume fraction] 33.5 % Low 37-47 [facility] Comment on above: Performed By: #### L 500.2500, L503.7505, L501.4021, L100.0100 ####[facility] [address] [place], [address] Hemoglobin (Bld) [Mass/Vol] 10.1 g/dL Low 12.0-15.0 [facility] Comment on above: Performed By: #### L 500.2500, L503.7505, L501.4021, L100.0100 ####[facility] [address] [place], [address] IG% 1.000 High 0.0-0.9 [facility] Comment on above: Result Comment: IG% - Immature Granulocytes (promyelocytes, myelocytes andmetamyelocytes) > 1% indicates that a LEFT SHIFT is Present. Performed By: #### L 500.2500, L503.7505, L501.4021, L100.0100 ####[facility] [address] [place], [address] Lymphocytes/100 WBC (Bld) 10.9 % Low 19-41 [facility] Comment on above: Performed By: #### L 500.2500, L503.7505, L501.4021, L100.0100 ####[facility] [address] [place], [address] MCH (RBC) [Entitic mass] 27.0 pg Normal 27.0-32.0 [facility] Comment on above: Performed By: #### L 500.2500, L503.7505, L501.4021, L100.0100 ####[facility] [address] [place], [address] MCHC (RBC) [Mass/Vol] 30.1 g/dL Low 32-36 [facility] Comment on above: Performed By: #### L 500.2500, L503.7505, L501.4021, L100.0100 ####[facility] [address] [place], [address] MCV (RBC) [Entitic vol] 89.6 fL Normal 81-99 [facility] Comment on above: Performed By: #### L 500.2500, L503.7505, L501.4021, L100.0100 ####[facility] [address] [place], [address] Monocytes/100 WBC (Bld) 4.8 % Normal 0-10 [facility] Comment on above: Performed By: #### L 500.2500, L503.7505, L501.4021, L100.0100 ####[facility] [address] [place], [address] Neutrophils/100 WBC (Bld) 82.5 % High 47-70 [facility] Comment on above: Performed By: #### L 500.2500, L503.7505, L501.4021, L100.0100 ####[facility] [address] [place], [address] Nucleated RBC (Bld) [#/Vol] 0 10*3/uL Normal 0-5 [facility] Comment on above: Performed By: #### L 500.2500, L503.7505, L501.4021, L100.0100 ####[facility] [address] [place], [address] Platelet mean volume (Bld) [Entitic vol] 10.4 fL Normal 6.2-12.0 [facility] Comment on above: Performed By: #### L 500.2500, L503.7505, L501.4021, L100.0100 ####[facility] [address] [place], [address] Platelets (Bld) [#/Vol] 243 10*3/uL Normal 150-450 [facility] Comment on above: Performed By: #### L 500.2500, L503.7505, L501.4021, L100.0100 ####[facility] [address] [place], [address] RBC (Bld) [#/Vol] 3.74 10*6/uL Low 4.2-5.4 [facility] Comment on above: Performed By: #### L 500.2500, L503.7505, L501.4021, L100.0100 ####[facility] [address] [place], [address] RDW SD 52.9 fl High 35.1-43.9 [facility] Comment on above: Performed By: #### L 500.2500, L503.7505, L501.4021, L100.0100 ####[facility] [address] [place], [address] WBC (Bld) [#/Vol] 9.0 10*3/uL Normal 4.4-11.0 [facility] Comment on above: Performed By: #### L 500.2500, L503.7505, L501.4021, L100.0100 ####[facility] [address] [place], [address] Carbon dioxide, total [Moles /volume] in Central venous bloodOrdered By: Robert Allison on 02-15-2025 CO2 [Moles/Vol] 30.9 mmol/L 21.0-32.0 [facility] Chest 1 View (Portable)on Chest 1 View (Portable) Normal [facility] Chloride assayOrdered By: Ester Allison on 02-15-2025 Chloride [Moles/Vol] 98 mmol/L 98-108 [facility] Emergency Department Summary on 02-15-2025 Emergency Department Summary Normal [facility] Eosinophil percentageOrdered By: Robert Allison on 02-15-2025 Eosinophils/100 WBC (Bld) 0.7 % 0-5 [facility] Erythrocyte distribution wid th ratioOrdered By: Robert Allison on 02-15-2025 Erythrocyte distribution width (RBC) [Ratio] 16.2 % High 11.6-14.6 [facility] Erythrocyte distribution wid th standard deviationOrdered By: Robert Allison on 02-15-2025 Erythrocyte distribution width (RBC) [Ratio] 52.9 fl High 35.1-43.9 [facility] Glomerular filtration rate ( GFR) estimation/1.73 sq m using serum, plasma, or whole bOrdered By: Robert Allison on 02-15-2025 GFR/1.73 sq M.predicted among non-blacks MDRD (S/P/Bld) [Vol rate/Area] 54 mL/min/{1.73_m2} Low >60 [facility] H AND P Exam - Hospitaliston 02-15-2025 H&P Exam - Hospitalist Normal [facility] Hematocrit Auto (Bld) [Volum e fraction]Ordered By: [place] Keegan on 02-15-2025 Hematocrit (Bld) [Volume fraction] 33.5 % Low 37-47 [facility] Hemoglobin measurementOrdere d By: [facility] on 02-15-2025 Hemoglobin (Bld) [Mass/Vol] 10.1 g/dL Low 12.0-15.0 [facility] Immature granulocytes/100 WB C Auto (Bld)Ordered By: [facility] on 02-15-2025 Immature granulocytes/100 WBC (Bld) 1.000 % High 0.0-0.9 [facility] L499.0042on 02-15-2025 Trop T High Sen 113 ng/L Invalid Interpretation Code <=14 [facility] Comment on above: Result Comment: Crit ical Result(s) Called at: 02/15/2025-13:14 by: Pat to Jena Smiley.??Results read back by same. Performed By: #### L 499.0042 ####[facility] [address] [place], [address] L499.0043on 02-15-2025 Trop T High Sen 114 ng/L Invalid Interpretation Code <=14 [facility] Comment on above: Result Comment: Hemo lysis present, Results??could be affected.??CRIT CALLED BY ARCHIE MIXON TO JESSICA MOE AT 1607Critical Result(s) Called at: by:??Results read back bysame. Performed By: #### L 499.0043 ####[facility] [address] [place], [address] L501.4021on 02-15-2025 Trop T High Sen 117 ng/L Invalid Interpretation Code <=14 [facility] Comment on above: Result Comment: Crit ical Result(s) Called at:02/15/2025-11:47 by: Pat to Quin Lopez.??Results read back by same. Performed By: #### L 500.2500, L503.7505, L501.4021, L100.0100 ####[facility] [address] [place], [address] L503.7505on 02-15-2025 Natriuretic peptide B (Bld) [Mass/Vol] 4408 pg/mL High <=1800 [facility] Comment on above: Result Comment: Hear t Failure Unlikely: < 300 pg/mLHeart Failure Likely< 50 Years: > 450 pg/mL50-75 Years: > 900 pg/mL>75 Years: > 1800 pg/mL Performed By: #### L 500.2500, L503.7505, L501.4021, L100.0100 ####[facility] [address] [place], [address] L509.7001on 02-15-2025 Procalcitonin 0.27 ng/mL High <=0.10 [facility] Comment on above: Result Comment: Inte rpretation:<0.10-0.25 ng/mL: Antibiotic therapy discouraged. Bacterialinfection unlikely.0.25-0.50 ng/mL: Antibiotic therapy encouraged. Bacterialinfection possible.>0.50 ng/mL: Antibiotic therapy strongly encouraged.Suggestive of presence of bacterial infection.PCT should always be interpreted in the clinical context ofthe patient. Therefore, clinicians should use the PCTresults in conjunction with other laboratory findings andclinical signs of the patient. Performed By: #### L 509.7001 ####[facility] [address] [place], [address] MCV (mean corpuscular volume ) determinationOrdered By: Robert Allison on 02-15-2025 MCV (RBC) [Entitic vol] 89.6 fL 81-99 [facility] Mean corpuscular hemoglobin (MCH) determinationOrdered By: Rem Ungmasood on 02-15-2025 MCH (RBC) [Entitic mass] 27.0 pg 27.0-32.0 [facility] Monocyte percentageOrdered B y: Robert Allison on 02-15-2025 Monocytes/100 WBC (Bld) 4.8 % 0-10 [facility] Natriuretic peptide.B prohor hayley N-Terminal [Mass/volume] in Serum or PlasmaOrdered By: Robert Allison on 02-15-2025 Natriuretic peptide.B prohormone N-Terminal [Mass/Vol] 4408 pg/mL High <1800 [facility] Neutrophil percentageOrdered By: Robert Allison on 02-15-2025 Neutrophils/100 WBC (Bld) 82.5 % High 47-70 [facility] Platelet countOrdered By: Ester Allison on 02-15-2025 Platelets (Bld) [#/Vol] 243 10*3/uL 150-450 [facility] Potassium measurement (mass/ volume)Ordered By: Robert Allison on 02-15-2025 Potassium (Unsp spec) [Mass/Vol] 4.3 mmol/L 3.3-5.1 [facility] Procalcitonin [Mass/volume] in Serum or Plasma by ImmunoassayOrdered By: Nestor Bartlett on 02-15-2025 Procalcitonin IA [Mass/Vol] 0.27 ng/mL High <0.11 [facility] RBC Auto (Bld) [#/Vol]Ordere d By: Robert Allison on 02-15-2025 RBC (Bld) [#/Vol] 3.74 10*6/uL Low 4.2-5.4 [facility] Serum creatinine measurement (mass/volume)Ordered By: Harrietus Allison on 02-15-2025 Creatinine [Mass/Vol] 1.04 mg/dL 0.70-1.20 [facility] Serum glucose measurement (m ass/volume)Ordered By: Harrietus Allison on 02-15-2025 Glucose [Mass/Vol] 97 mg/dL 70-99 [facility] Serum or plasma calcium melanie urement (mass/volume)Ordered By: Harrietus Allison on 02-15-2025 Calcium [Mass/Vol] 10.7 mg/dL 7.6-11.0 [facility] Serum or plasma urea nitroge n measurement (mass/volume)Ordered By: Harrietus Allison on 02-15-2025 Urea nitrogen [Mass/Vol] 24 mg/dL High 4-19 [facility] Sodium levelOrdered By: Harrietmarcia walker Keeagn on 02-15-2025 Sodium [Moles/Vol] 138 mmol/L 133-145 [facility] Troponin T.cardiac [Mass/vol ume] in Serum or Plasma by High sensitivity methodOrdered By: Harrietus Allison on 02-15-2025 Troponin T.cardiac High sensitivity method [Mass/Vol] 114 ng/L High <14 [facility] Troponin T.cardiac High sensitivity method [Mass/Vol] 113 ng/L High <14 [facility] Troponin T.cardiac High sensitivity method [Mass/Vol] 117 ng/L High <14 [facility] White blood cell (WBC) count Ordered By: Robert Keegan on 02-15-2025 WBC (Bld) [#/Vol] 9.0 10*3/uL 4.4-11.0 [facility] Bedside Glucoseon 02-13-2025 FINGERSTICK GLU 337 mg/dL High 74-106 [facility] Comment on above: Result Comment: KATARINA GEMENT OF PATIENT CARE PER NURSING PROTOCOL Performed By: #### L 501.080 ####[facility] [address] [place], [address] FINGERSTICK GLU 302 mg/dL High 74-106 [facility] Comment on above: Result Comment: KATARINA GEMENT OF PATIENT CARE PER NURSING PROTOCOL Performed By: #### L 501.080 ####[facility] [address] [place], [address] Discharge Instructionon 01-29 Discharge Instruction Normal [facility] deOrdered By: Lucio Borden on 02-13-2025 Glucose [Mass/Vol] 337 mg/dL High 74-106 [facility] Bedside Glucoseon 02-12-2025 FINGERSTICK GLU 236 mg/dL High 74-106 [facility] Comment on above: Result Comment: KATARINA GEMENT OF PATIENT CARE PER NURSING PROTOCOL Performed By: #### L 501.080 ####[facility] [address] [place], [address] FINGERSTICK GLU 112 mg/dL High [address] [place] [address] Comment on above: Result Comment: KATARINA GEMENT OF PATIENT CARE PER NURSING PROTOCOL Performed By: #### L 501.080 ####[facility] [address] [place], [address] FINGERSTICK GLU 471 mg/dL Invalid Interpretation Code -[address] [place] [address] Comment on above: Result Comment: Dr Carina javier FollowedMANAGEMENT OF PATIENT CARE PER NURSING PROTOCOL Performed By: #### L 501.080 ####[facility] [address] [place], [address] FINGERSTICK GLU 492 mg/dL Invalid Interpretation Code [address] [place] [address] Comment on above: Result Comment: Repe at TestMANAGEMENT OF PATIENT CARE PER NURSING PROTOCOL Performed By: #### L 501.080 ####[facility] [address] [place], [address] FINGERSTICK GLU 243 mg/dL High [address] [place] [address] Comment on above: Result Comment: KATARINA GEMENT OF PATIENT CARE PER NURSING PROTOCOL Performed By: #### L 501.080 ####[facility] [address] [place], [address] FINGERSTICK GLU 312 mg/dL High [address] [place] [address] Comment on above: Result Comment: KATARINA GEMENT OF PATIENT CARE PER NURSING PROTOCOL Performed By: #### L 501.080 ####[facility] [address] [place], [address] FINGERSTICK GLU 246 mg/dL High [facility]106 [facility] Comment on above: Result Comment: KATARINA GEMENT OF PATIENT CARE PER NURSING PROTOCOL Performed By: #### L 501.080 ####[facility] [address] [place], [address] Bedside Glucoseon 02-11-2025 FINGERSTICK GLU 276 mg/dL High [address] [place] [address] Comment on above: Result Comment: KATARINA GEMENT OF PATIENT CARE PER NURSING PROTOCOL Performed By: #### L 501.080 ####[facility] [address] [place], [address] FINGERSTICK GLU 124 mg/dL High [address] [place] [address] Comment on above: Result Comment: KATARINA GEMENT OF PATIENT CARE PER NURSING PROTOCOL Performed By: #### L 501.080 ####[facility] [address] [place], [address] FINGERSTICK GLU 257 mg/dL High [address] [place] [address] Comment on above: Result Comment: KATARINA GEMENT OF PATIENT CARE PER NURSING PROTOCOL Performed By: #### L 501.080 ####[facility] [address] [place], [address] FINGERSTICK GLU 305 mg/dL High [address] [place] [address] Comment on above: Result Comment: KATARINA GEMENT OF PATIENT CARE PER NURSING PROTOCOL Performed By: #### L 501.080 ####[facility] [address] [place], [address] FINGERSTICK GLU 242 mg/dL High [address] [place] [address] Comment on above: Result Comment: KATARINA GEMENT OF PATIENT CARE PER NURSING PROTOCOL Performed By: #### L 501.080 ####[facility] [address] [place], [address] FINGERSTICK GLU 206 mg/dL High 74-106 [facility] Comment on above: Result Comment: KATARINA GARY OF PATIENT CARE PER NURSING PROTOCOL Performed By: #### L 501.080 ####[facility] [address] [place], [address] Anion gap in Serum or Plasma Ordered By: Lucio Borden on 02-10-2025 Anion gap [Moles/Vol] 14 mmol/L 5-15 [facility] BUN/creatinine ratioOrdered By: Lucio Borden on 02-10-2025 Urea nitrogen/Creatinine [Mass ratio] 20.8 mg/mg High - [facility] Basic Metabolic Profile (BMP )on 02-10-2025 BUN/CRE 20.8 RATIO High - [facility] Comment on above: Performed By: #### L 500.2500 ####[facility] [address] [place], [address] Calcium [Mass/Vol] 10.0 mg/dL Normal 7.6-11.0 [facility] Comment on above: Performed By: #### L 500.2500 ####[facility] [address] [place], [address] Chloride [Moles/Vol] 98 mmol/L Normal 98-108 [facility] Comment on above: Performed By: #### L 500.2500 ####[facility] [address] [place], [address] CO2 [Moles/Vol] 26.8 mmol/L Normal 21.0-32.0 [facility] Comment on above: Performed By: #### L 500.2500 ####[facility] [address] [place], [address] Creatinine [Mass/Vol] 1.10 mg/dL Normal 0.70-1.20 [facility] Comment on above: Performed By: #### L 500.2500 ####[facility] [address] [place], [address] ECRCL 39.32 ml/min Low 50-250 [facility] Comment on above: Performed By: #### L 500.2500 ####[facility] [address] [place], [address] GAP 14 Normal 5-15 [facility] Comment on above: Performed By: #### L 500.2500 ####[facility] [address] [place], [address] GFR/1.73 sq M.predicted among non-blacks MDRD (S/P/Bld) [Vol rate/Area] 50 mL/min/{1.73_m2} Low >60 [facility] Comment on above: Result Comment: mL/m in/1.73m2 CKD-EPI Creatinine Equation (2020) Performed By: #### L 500.2500 ####[facility] [address] [place], [address] Glucose [Mass/Vol] 361 mg/dL High 70-99 [facility] Comment on above: Performed By: #### L 500.2500 ####[facility] [address] [place], [address] Potassium [Moles/Vol] 4.9 mmol/L Normal 3.3-5.1 [facility] Comment on above: Performed By: #### L 500.2500 ####[facility] [address] [place], [address] Sodium [Moles/Vol] 139 mmol/L Normal 133-145 [facility] Comment on above: Performed By: #### L 500.2500 ####[facility] [address] [place], [address] Urea nitrogen [Mass/Vol] 23 mg/dL High 4-19 [facility] Comment on above: Performed By: #### L 500.2500 ####[facility] [address] [place], [address] Bedside Glucoseon 02-10-2025 FINGERSTICK GLU 167 mg/dL High 74-106 [facility] Comment on above: Result Comment: KATARINA GEMENT OF PATIENT CARE PER NURSING PROTOCOL Performed By: #### L 501.080 ####[facility] [address] [place], [address] FINGERSTICK GLU 78 mg/dL Normal 74-106 [facility] Comment on above: Result Comment: KATARINA GEMENT OF PATIENT CARE PER NURSING PROTOCOL Performed By: #### L 501.080 ####[facility] [address] [place], [address] FINGERSTICK GLU 64 mg/dL Low 74-106 [facility] Comment on above: Result Comment: KATARINA GEMENT OF PATIENT CARE PER NURSING PROTOCOL Performed By: #### L 501.080 ####[facility] [address] [place], [address] FINGERSTICK GLU 222 mg/dL High 74-106 [facility] Comment on above: Result Comment: KATARINA GEMENT OF PATIENT CARE PER NURSING PROTOCOL Performed By: #### L 501.080 ####[facility] [address] [place], [address] Carbon dioxide, total [Moles /volume] in Central venous bloodOrdered By: Lucio Borden on 02-10-2025 CO2 [Moles/Vol] 26.8 mmol/L 21.0-32.0 [facility] Chloride assayOrdered By: Chen Borden on 02-10-2025 Chloride [Moles/Vol] 98 mmol/L 98-108 [facility] Glomerular filtration rate ( GFR) estimation/1.73 sq m using serum, plasma, or whole bOrdered By: Lucio Borden on 02-10-2025 GFR/1.73 sq M.predicted among non-blacks MDRD (S/P/Bld) [Vol rate/Area] 50 mL/min/{1.73_m2} Low >60 [facility] Potassium measurement (mass/ volume)Ordered By: Lucio Borden on 02-10-2025 Potassium (Unsp spec) [Mass/Vol] 4.9 mmol/L 3.3-5.1 [facility] RESPIRATORY PANEL MOLECULARo n 02-10-2025 RP PANEL Normal [facility] Comment on above: Performed By: #### M 100.283 ####[facility] [address] [place], [address] Serum creatinine measurement (mass/volume)Ordered By: Lucio Borden on 02-10-2025 Creatinine [Mass/Vol] 1.10 mg/dL 0.70-1.20 [facility] Serum glucose measurement (m ass/volume)Ordered By: Lucio Borden on 02-10-2025 Glucose [Mass/Vol] 361 mg/dL High 70-99 [facility] Serum or plasma calcium melanie urement (mass/volume)Ordered By: Lucio Borden on 02-10-2025 Calcium [Mass/Vol] 10.0 mg/dL 7.6-11.0 [facility] Serum or plasma urea nitroge n measurement (mass/volume)Ordered By: Lucio Borden on 02-10-2025 Urea nitrogen [Mass/Vol] 23 mg/dL High 4-19 [facility] Sodium levelOrdered By: Lucio Borden on 02-10-2025 Sodium [Moles/Vol] 139 mmol/L 133-145 [facility] Absolute lymphocyte countOrd ered By: Jeremiah Corrales on 02-09-2025 Lymphocytes Auto (Unsp spec) [#/Vol] 0.69 10*3/uL Low 0.83-4.51 [facility] Anion gap in Serum or Plasma Ordered By: Jeremiah Corrales on 02-09-2025 Anion gap [Moles/Vol] 12 mmol/L 5-15 [facility] Automated lymphocyte count a s percentage of total leukocytesOrdered By: Jeremiah Corrales on 02-09-2025 Lymphocytes/100 WBC Auto (Unsp spec) 7.3 % Low 19-41 [facility] BUN/creatinine ratioOrdered By: Jeremiah Corrales on 02-09-2025 Urea nitrogen/Creatinine [Mass ratio] 20.2 mg/mg High 10- [facility] Basic Metabolic Profile (BMP )on 02-09-2025 BUN/CRE 20.2 RATIO High - [facility] Comment on above: Performed By: #### L 100.0100, L501.4021, L500.2500 ####[facility] [address] [place], [address] Calcium [Mass/Vol] 10.2 mg/dL Normal 7.6-11.0 [facility] Comment on above: Performed By: #### L 100.0100, L501.4021, L500.2500 ####[facility] [address] [place], [address] Chloride [Moles/Vol] 98 mmol/L Normal 98-108 [facility] Comment on above: Performed By: #### L 100.0100, L501.4021, L500.2500 ####[facility] [address] [place], [address] CO2 [Moles/Vol] 29.9 mmol/L Normal 21.0-32.0 [facility] Comment on above: Performed By: #### L 100.0100, L501.4021, L500.2500 ####[facility] [address] [place], [address] Creatinine [Mass/Vol] 1.16 mg/dL Normal 0.70-1.20 [facility] Comment on above: Performed By: #### L 100.0100, L501.4021, L500.2500 ####[facility] [address] [place], [address] ECRCL 37.42 ml/min Low 50-250 [facility] Comment on above: Performed By: #### L 100.0100, L501.4021, L500.2500 ####[facility] [address] [place], [address] GAP 12 Normal 5-15 [facility] Comment on above: Performed By: #### L 100.0100, L501.4021, L500.2500 ####[facility] [address] [place], [address] GFR/1.73 sq M.predicted among non-blacks MDRD (S/P/Bld) [Vol rate/Area] 47 mL/min/{1.73_m2} Low >60 [facility] Comment on above: Result Comment: mL/m in/1.73m2 CKD-EPI Creatinine Equation (2020) Performed By: #### L 100.0100, L501.4021, L500.2500 ####[facility] [address] [place], [address] Glucose [Mass/Vol] 173 mg/dL High 70-99 [facility] Comment on above: Performed By: #### L 100.0100, L501.4021, L500.2500 ####[facility] [address] [place], [address] Potassium [Moles/Vol] 4.3 mmol/L Normal 3.3-5.1 [facility] Comment on above: Performed By: #### L 100.0100, L501.4021, L500.2500 ####[facility] [address] [place], [address] Sodium [Moles/Vol] 140 mmol/L Normal 133-145 [facility] Comment on above: Performed By: #### L 100.0100, L501.4021, L500.2500 ####[facility] [address] [place], [address] Urea nitrogen [Mass/Vol] 23 mg/dL High 4-19 [facility] Comment on above: Performed By: #### L 100.0100, L501.4021, L500.2500 ####[facility] [address] [place], [address] Basophil percentageOrdered B y: Jeremiah Corrales on 02-09-2025 Basophils/100 WBC (Bld) 0.4 % 0-1 [facility] Bedside Glucoseon 02-09-2025 FINGERSTICK GLU 401 mg/dL High 74-106 [facility] Comment on above: Result Comment: KATARINA GEMENT OF PATIENT CARE PER NURSING PROTOCOL Performed By: #### L 501.080 ####[facility] [address] [place], [address] FINGERSTICK GLU 248 mg/dL High 74-106 [facility] Comment on above: Result Comment: KATARINA GEMENT OF PATIENT CARE PER NURSING PROTOCOL Performed By: #### L 501.080 ####[facility] [address] [place], [address] CBC W/Diff, Automatedon 01-29 PLT EST ADEQUATE Normal ADEQ [facility] Comment on above: Performed By: #### L 100.0100, L501.4021, L500.2500 ####[facility] [address] [place], [address] Carbon dioxide, total [Moles /volume] in Central venous bloodOrdered By: Jeremiah Corrales on 02-09-2025 CO2 [Moles/Vol] 29.9 mmol/L 21.0-32.0 [facility] Chest PA and Lateralon 02-09 Chest PA and Lateral Normal [facility] Chloride assayOrdered By: Enio Corrales on 02-09-2025 Chloride [Moles/Vol] 98 mmol/L 98-108 [facility] Emergency Department Summary on 02-09-2025 Emergency Department Summary Normal [facility] Eosinophil percentageOrdered By: Jeremiah Corrales on 02-09-2025 Eosinophils/100 WBC (Bld) 0.1 % 0-5 [facility] Erythrocyte distribution wid th ratioOrdered By: Jeremiah Corrales on 02-09-2025 Erythrocyte distribution width (RBC) [Ratio] 15.8 % High 11.6-14.6 [facility] Erythrocyte distribution wid th standard deviationOrdered By: Jeremiah Corrales on 02-09-2025 Erythrocyte distribution width (RBC) [Ratio] 51.3 fl High 35.1-43.9 [facility] Glomerular filtration rate ( GFR) estimation/1.73 sq m using serum, plasma, or whole bOrdered By: Jeremiah Corrales on 02-09-2025 GFR/1.73 sq M.predicted among non-blacks MDRD (S/P/Bld) [Vol rate/Area] 47 mL/min/{1.73_m2} Low >60 [facility] H AND P Exam - Hospitaliston 02-09-2025 H&P Exam - Hospitalist Normal [facility] Hematocrit Auto (Bld) [Volum e fraction]Ordered By: Jeremiah Corrales on 02-09-2025 Hematocrit (Bld) [Volume fraction] 37.9 % 37-47 [facility] Hemoglobin measurementOrdere d By: Jeremiah Corrales on 02-09-2025 Hemoglobin (Bld) [Mass/Vol] 11.5 g/dL Low 12.0-15.0 [facility] Immature granulocytes/100 WB C Auto (Bld)Ordered By: Jeremiah Corrales on 02-09-2025 Immature granulocytes/100 WBC (Bld) 0.800 % 0.0-0.9 [facility] L499.0042on 02-09-2025 Trop T High Sen 119 ng/L Invalid Interpretation Code <=14 [facility] Comment on above: Result Comment: Crit ical Result(s) Called VANE GRAVES at: 1520 by:VIET??Results read back by same. Performed By: #### L 499.0042 ####[facility] [address] [place], [address] L501.4021on 02-09-2025 Trop T High Sen 122 ng/L Invalid Interpretation Code <=14 [facility] Comment on above: Result Comment: Crit ical Result(s) Called at 1330: by: SHARONA ROWELL. ??Results read back by same. Performed By: #### L 100.0100, L501.4021, L500.2500 ####[facility] [address] [place], [address] L503.7505on 02-09-2025 Natriuretic peptide B (Bld) [Mass/Vol] 9616 pg/mL High <=1800 [facility] Comment on above: Result Comment: Hear t Failure Unlikely: < 300 pg/mLHeart Failure Likely< 50 Years: > 450 pg/mL50-75 Years: > 900 pg/mL>75 Years: > 1800 pg/mL Performed By: #### L 503.7505 ####[facility] [address] [place], [address] MCV (mean corpuscular volume ) determinationOrdered By: Jeremiah Corrales on 02-09-2025 MCV (RBC) [Entitic vol] 89.8 fL 81-99 [facility] Mean corpuscular hemoglobin (MCH) determinationOrdered By: Jeremiah Corrales on 02-09-2025 MCH (RBC) [Entitic mass] 27.3 pg 27.0-32.0 [facility] Monocyte percentageOrdered B y: Jeremiah Corrales on 02-09-2025 Monocytes/100 WBC (Bld) 4.5 % 0-10 [facility] Natriuretic peptide.B prohor hayley N-Terminal [Mass/volume] in Serum or PlasmaOrdered By: Jeremiah Corrales on 02-09-2025 Natriuretic peptide.B prohormone N-Terminal [Mass/Vol] 9616 pg/mL High <1800 [facility] Neutrophil percentageOrdered By: Jeremiah Corrales on 02-09-2025 Neutrophils/100 WBC (Bld) 86.9 % High 47-70 [facility] Platelet countOrdered By: Enio Corrales on 02-09-2025 Platelet count TNP [facility] Platelet estimateOrdered By: Jeremiah Corrales on 02-09-2025 Platelets LM Ql (Bld) ADEQUATE ADEQ [facility] Potassium measurement (mass/ volume)Ordered By: Jeremiah Corrales on 02-09-2025 Potassium (Unsp spec) [Mass/Vol] 4.3 mmol/L 3.3-5.1 [facility] RBC Auto (Bld) [#/Vol]Ordere d By: Jeremiah Corrales on 02-09-2025 RBC (Bld) [#/Vol] 4.22 10*6/uL 4.2-5.4 [facility] Respiratory pathogens detect ion panel by molecular detection methodOrdered By: Tono Gomez on 02-09-2025 Respiratory pathogens DNA and RNA panel BEBETO+probe (Resp) Parainfluenza 3 Abnormal [facility] Serum creatinine measurement (mass/volume)Ordered By: Jeremiah Corrales on 02-09-2025 Creatinine [Mass/Vol] 1.16 mg/dL 0.70-1.20 [facility] Serum glucose measurement (m ass/volume)Ordered By: Jeremiah Corrales on 02-09-2025 Glucose [Mass/Vol] 173 mg/dL High 70-99 [facility] Serum or plasma calcium melanie urement (mass/volume)Ordered By: Jeremiah Corrales on 02-09-2025 Calcium [Mass/Vol] 10.2 mg/dL 7.6-11.0 [facility] Serum or plasma urea nitroge n measurement (mass/volume)Ordered By: Jeremiah Corrales on 02-09-2025 Urea nitrogen [Mass/Vol] 23 mg/dL High 4-19 [facility] Sodium levelOrdered By: Jeremiah Corrales on 02-09-2025 Sodium [Moles/Vol] 140 mmol/L 133-145 [facility] Troponin T.cardiac [Mass/vol ume] in Serum or Plasma by High sensitivity methodOrdered By: Jeremiah Corrales on 02-09-2025 Troponin T.cardiac High sensitivity method [Mass/Vol] 119 ng/L High <14 [facility] Troponin T.cardiac High sensitivity method [Mass/Vol] 122 ng/L High <14 [facility] White blood cell (WBC) count Ordered By: Jeremiah Corrales on 02-09-2025 WBC (Bld) [#/Vol] 9.4 10*3/uL 4.4-11.0 [facility] Absolute lymphocyte countOrd ered By: Ramone Smiley on 02-07-2025 Lymphocytes Auto (Unsp spec) [#/Vol] 0.84 10*3/uL 0.83-4.51 [facility] Anion gap in Serum or Plasma Ordered By: Ramone Smiley on 02-07-2025 Anion gap [Moles/Vol] 12 mmol/L 5-15 [facility] Automated lymphocyte count a s percentage of total leukocytesOrdered By: Ramone Smiley on 02-07-2025 Lymphocytes/100 WBC Auto (Unsp spec) 7.3 % Low 19- [facility] BUN/creatinine ratioOrdered By: Ramone Smiley on 02-07-2025 Urea nitrogen/Creatinine [Mass ratio] 17.7 mg/mg 10- [facility] Basophil percentageOrdered B y: Ramone Smiley on 02-07-2025 Basophils/100 WBC (Bld) 0.1 % 0-1 [facility] Bilirubin, totalOrdered By: Ramone Smiley on 02-07-2025 Bilirubin [Mass/Vol] 0.25 mg/dL 0.00-1.30 [facility] CBC W/Diff, Automatedon 01-29 Absolute Lymph 0.84 X10 3/uL Normal 0.83-4.51 [facility] Comment on above: Order Comment: Order Date: 02/07/25Order Info: 0184-1 - CBCD Performed By: #### L 100.0100, L500.4050 ####[facility] [address] [place], [address] Absolute Neut 10.0 X10 3/uL High 2.0-7.7 [facility] Comment on above: Order Comment: Order Date: 02/07/25Order Info: 0184-1 - CBCD Performed By: #### L 100.0100, L500.4050 ####[facility] [address] [place], [address] Basophils/100 WBC (Bld) 0.1 % Normal 0-1 [facility] Comment on above: Order Comment: Order Date: 02/07/25Order Info: 0184-1 - CBCD Performed By: #### L 100.0100, L500.4050 ####[facility] [address] [place], [address] Eosinophils/100 WBC (Bld) 0.0 % Normal 0-5 [facility] Comment on above: Order Comment: Order Date: 02/07/25Order Info: 0184-1 - CBCD Performed By: #### L 100.0100, L500.4050 ####[facility] [address] [place], [address] Erythrocyte distribution width (RBC) [Ratio] 15.7 % High 11.6-14.6 [facility] Comment on above: Order Comment: Order Date: 02/07/25Order Info: 0184-1 - CBCD Performed By: #### L 100.0100, L500.4050 ####[facility] [address] [place], [address] Hematocrit (Bld) [Volume fraction] 36.8 % Low 37-47 [facility] Comment on above: Order Comment: Order Date: 02/07/25Order Info: 018- - CBCD Performed By: #### L 100.0100, L500.4050 ####[facility] [address] [place], [address] Hemoglobin (Bld) [Mass/Vol] 11.4 g/dL Low 12.0-15.0 [facility] Comment on above: Order Comment: Order Date: 02/07/25Order Info: 018- - CBCD Performed By: #### L 100.0100, L500.4050 ####[facility] [address] [place], [address] IG% 0.400 Normal 0.0-0.9 [facility] Comment on above: Order Comment: Order Date: 02/07/25Order Info: 0184-1 - CBCD Result Comment: IG% - Immature Granulocytes (promyelocytes, myelocytes andmetamyelocytes) > 1% indicates that a LEFT SHIFT is Present. Performed By: #### L 100.0100, L500.4050 ####[facility] [address] [place], [address] Lymphocytes/100 WBC (Bld) 7.3 % Low 19-41 [facility] Comment on above: Order Comment: Order Date: 02/07/25Order Info: 0184-1 - CBCD Performed By: #### L 100.0100, L500.4050 ####[facility] [address] [place], [address] MCH (RBC) [Entitic mass] 27.9 pg Normal 27.0-32.0 [facility] Comment on above: Order Comment: Order Date: 02/07/25Order Info: 0184-1 - CBCD Performed By: #### L 100.0100, L500.4050 ####[facility] [address] [place], [address] MCHC (RBC) [Mass/Vol] 31.0 g/dL Low 32-36 [facility] Comment on above: Order Comment: Order Date: 02/07/25Order Info: 0184-1 - CBCD Performed By: #### L 100.0100, L500.4050 ####[facility] [address] [place], [address] MCV (RBC) [Entitic vol] 90.2 fL Normal 81-99 [facility] Comment on above: Order Comment: Order Date: 02/07/25Order Info: 0184-1 - CBCD Performed By: #### L 100.0100, L500.4050 ####[facility] [address] [place], [address] Monocytes/100 WBC (Bld) 5.2 % Normal 0-10 [facility] Comment on above: Order Comment: Order Date: 02/07/25Order Info: 0184-1 - CBCD Performed By: #### L 100.0100, L500.4050 ####[facility] [address] [place], [address] Neutrophils/100 WBC (Bld) 87.0 % High 47-70 [facility] Comment on above: Order Comment: Order Date: 02/07/25Order Info: 0184-1 - CBCD Performed By: #### L 100.0100, L500.4050 ####[facility] [address] [place], [address] Nucleated RBC (Bld) [#/Vol] 0 10*3/uL Normal 0-5 [facility] Comment on above: Order Comment: Order Date: 02/07/25Order Info: 0184-1 - CBCD Performed By: #### L 100.0100, L500.4050 ####[facility] [address] [place], [address] Platelet mean volume (Bld) [Entitic vol] 11.5 fL Normal 6.2-12.0 [facility] Comment on above: Order Comment: Order Date: 02/07/25Order Info: 0184- - CBCD Performed By: #### L 100.0100, L500.4050 ####[facility] [address] [place], [address] Platelets (Bld) [#/Vol] 247 10*3/uL Normal 150-450 [facility] Comment on above: Order Comment: Order Date: 02/07/25Order Info: 0184-1 - CBCD Performed By: #### L 100.0100, L500.4050 ####[facility] [address] [place], [address] RBC (Bld) [#/Vol] 4.08 10*6/uL Low 4.2-5.4 [facility] Comment on above: Order Comment: Order Date: 02/07/25Order Info: 0184-1 - CBCD Performed By: #### L 100.0100, L500.4050 ####[facility] [address] [place], [address] RDW SD 51.8 fl High 35.1-43.9 [facility] Comment on above: Order Comment: Order Date: 02/07/25Order Info: 0184-1 - CBCD Performed By: #### L 100.0100, L500.4050 ####[facility] [address] [place], [address] WBC (Bld) [#/Vol] 11.5 10*3/uL High 4.4-11.0 [facility] Comment on above: Order Comment: Order Date: 02/07/25Order Info: 0184-1 - CBCD Performed By: #### L 100.0100, L500.4050 ####[facility] [address] [place], [address] Carbon dioxide, total [Moles /volume] in Central venous bloodOrdered By: Ramone Smiley on 02-07-2025 CO2 [Moles/Vol] 27.9 mmol/L 21.0-32.0 [facility] Chloride assayOrdered By: Richar Smiley on 02-07-2025 Chloride [Moles/Vol] 96 mmol/L Low 98-108 [facility] Comprehensive Metabolic Prof ilon 02-07-2025 Albumin [Mass/Vol] 3.3 g/dL Low 3.4-4.8 [facility] Comment on above: Order Comment: URINE UTOOrder Date: 02/07/25Order Info: 0786-1 - CMP Performed By: #### L 100.0100, L500.4050 ####[facility] [address] [place], [address] Albumin/Globulin [Mass ratio] 1.0 {ratio} Normal 0.9-2.4 [facility] Comment on above: Order Comment: URINE UTOOrder Date: 02/07/25Order Info: 0786-1 - CMP Performed By: #### L 100.0100, L500.4050 ####[facility] [address] [place], [address] ALK PHOS 86 U/L Normal 35-104 [facility] Comment on above: Order Comment: URINE UTOOrder Date: 02/07/25Order Info: 0786-1 - CMP Performed By: #### L 100.0100, L500.4050 ####[facility] [address] [place], [address] ALT [Catalytic activity/Vol] 20 U/L Normal <=34 [facility] Comment on above: Order Comment: URINE UTOOrder Date: 02/07/25Order Info: 0786-1 - CMP Performed By: #### L 100.0100, L500.4050 ####[facility] [address] [place], [address] AST [Catalytic activity/Vol] 29 U/L Normal <=31 [facility] Comment on above: Order Comment: URINE UTOOrder Date: 02/07/25Order Info: 0786-1 - CMP Performed By: #### L 100.0100, L500.4050 ####[facility] [address] [place], [address] Bilirubin [Mass/Vol] 0.25 mg/dL Normal 0.00-1.30 [facility] Comment on above: Order Comment: URINE UTOOrder Date: 02/07/25Order Info: 0786-1 - CMP Performed By: #### L 100.0100, L500.4050 ####[facility] [address] [place], [address] BUN/CRE 17.7 RATIO Normal 10-20 [facility] Comment on above: Order Comment: URINE UTOOrder Date: 02/07/25Order Info: 0786-1 - CMP Performed By: #### L 100.0100, L500.4050 ####[facility] [address] [place], [address] Calcium [Mass/Vol] 10.2 mg/dL Normal 7.6-11.0 [facility] Comment on above: Order Comment: URINE UTOOrder Date: 02/07/25Order Info: 0786-1 - CMP Performed By: #### L 100.0100, L500.4050 ####[facility] [address] [place], [address] Chloride [Moles/Vol] 96 mmol/L Low 98-108 [facility] Comment on above: Order Comment: URINE UTOOrder Date: 02/07/25Order Info: 785-1 - CMP Performed By: #### L 100.0100, L500.4050 ####[facility] [address] [place], [address] CO2 [Moles/Vol] 27.9 mmol/L Normal 21.0-32.0 [facility] Comment on above: Order Comment: URINE UTOOrder Date: 02/07/25Order Info: 785-1 - CMP Performed By: #### L 100.0100, L500.4050 ####[facility] [address] [place], [address] Creatinine [Mass/Vol] 1.37 mg/dL High 0.70-1.20 [facility] Comment on above: Order Comment: URINE UTOOrder Date: 02/07/25Order Info: 785-1 - CMP Performed By: #### L 100.0100, L500.4050 ####[facility] [address] [place], [address] GAP 12 Normal 5-15 [facility] Comment on above: Order Comment: URINE UTOOrder Date: 02/07/25Order Info: 07-1 - CMP Performed By: #### L 100.0100, L500.4050 ####[facility] [address] [place], [address] GFR/1.73 sq M.predicted among non-blacks MDRD (S/P/Bld) [Vol rate/Area] 39 mL/min/{1.73_m2} Low >60 [facility] Comment on above: Order Comment: URINE UTOOrder Date: 02/07/25Order Info: 07-1 - CMP Result Comment: mL/m in/1.73m2 CKD-EPI Creatinine Equation (2020) Performed By: #### L 100.0100, L500.4050 ####[facility] [address] [place], [address] Globulin (S) [Mass/Vol] 3.2 g/dL Normal 2.2-4.2 [facility] Comment on above: Order Comment: URINE UTOOrder Date: 02/07/25Order Info: 07-1 - CMP Performed By: #### L 100.0100, L500.4050 ####[facility] [address] [place], [address] Glucose [Mass/Vol] 254 mg/dL High 70-99 [facility] Comment on above: Order Comment: URINE UTOOrder Date: 02/07/25Order Info: 07-1 - CMP Performed By: #### L 100.0100, L500.4050 ####[facility] [address] [place], [address] Potassium [Moles/Vol] 5.1 mmol/L Normal 3.3-5.1 [facility] Comment on above: Order Comment: URINE UTOOrder Date: 02/07/25Order Info: 0786-1 - CMP Performed By: #### L 100.0100, L500.4050 ####[facility] [address] [place], [address] Sodium [Moles/Vol] 136 mmol/L Normal 133-145 [facility] Comment on above: Order Comment: URINE UTOOrder Date: 02/07/25Order Info: 0786-1 - CMP Performed By: #### L 100.0100, L500.4050 ####[facility] [address] [place], [address] T PROT 6.5 g/dL Normal 5.9-8.4 [facility] Comment on above: Order Comment: URINE UTOOrder Date: 02/07/25Order Info: 0786-1 - CMP Performed By: #### L 100.0100, L500.4050 ####[facility] [address] [place], [place], [address] Urea nitrogen [Mass/Vol] 24 mg/dL High 4-19 [facility] Comment on above: Order Comment: URINE UTOOrder Date: 02/07/25Order Info: 0786-1 - CMP Performed By: #### L 100.0100, L500.4050 ####[facility] [address] [place], [address] Eosinophil percentageOrdered By: Ramone Smiley on 02-07-2025 Eosinophils/100 WBC (Bld) 0.0 % 0-5 [facility] Erythrocyte distribution wid th ratioOrdered By: Ramone Smiley on 02-07-2025 Erythrocyte distribution width (RBC) [Ratio] 15.7 % High 11.6-14.6 [facility] Erythrocyte distribution wid th standard deviationOrdered By: Ramone Smiley on 02-07-2025 Erythrocyte distribution width (RBC) [Ratio] 51.8 fl High 35.1-43.9 [facility] Glomerular filtration rate ( GFR) estimation/1.73 sq m using serum, plasma, or whole bOrdered By: Ramone Smiley on 02-07-2025 GFR/1.73 sq M.predicted among non-blacks MDRD (S/P/Bld) [Vol rate/Area] 39 mL/min/{1.73_m2} Low >60 [facility] Hematocrit Auto (Bld) [Volum e fraction]Ordered By: Ramone Smiley on 02-07-2025 Hematocrit (Bld) [Volume fraction] 36.8 % Low 37-47 [facility] Hemoglobin measurementOrdere d By: Ramone Smiley on 02-07-2025 Hemoglobin (Bld) [Mass/Vol] 11.4 g/dL Low 12.0-15.0 [facility] Immature granulocytes/100 WB C Auto (Bld)Ordered By: Ramone Smiley on 02-07-2025 Immature granulocytes/100 WBC (Bld) 0.400 % 0.0-0.9 [facility] MCV (mean corpuscular volume ) determinationOrdered By: Ramone Smiley on 02-07-2025 MCV (RBC) [Entitic vol] 90.2 fL 81-99 [facility] Mean corpuscular hemoglobin (MCH) determinationOrdered By: Ramone Smiley on 02-07-2025 MCH (RBC) [Entitic mass] 27.9 pg 27.0-32.0 [facility] Monocyte percentageOrdered B y: Ramnoe Smiley on 02-07-2025 Monocytes/100 WBC (Bld) 5.2 % 0-10 [facility] Neutrophil percentageOrdered By: Ramone Smiley on 02-07-2025 Neutrophils/100 WBC (Bld) 87.0 % High 47-70 [facility] No Panel InformationOrdered By: Ramone Smiley on 02-07-2025 29 U/L <32 [facility] Platelet countOrdered By: Richar Smiley on 02-07-2025 Platelets (Bld) [#/Vol] 247 10*3/uL 150-450 [facility] Potassium measurement (mass/ volume)Ordered By: Ramone Smiley on 02-07-2025 Potassium (Unsp spec) [Mass/Vol] 5.1 mmol/L 3.3-5.1 [facility] RBC Auto (Bld) [#/Vol]Ordere d By: Ramone Smiley on 02-07-2025 RBC (Bld) [#/Vol] 4.08 10*6/uL Low 4.2-5.4 [facility] Serum creatinine measurement (mass/volume)Ordered By: Ramone Smiley on 02-07-2025 Creatinine [Mass/Vol] 1.37 mg/dL High 0.70-1.20 [facility] Serum globulin measurementOr dered By: Ramone Smiley on 02-07-2025 Globulin (S) [Mass/Vol] 3.2 g/dL 2.2-4.2 [facility] Serum glucose measurement (m ass/volume)Ordered By: Ramone Smiley on 02-07-2025 Glucose [Mass/Vol] 254 mg/dL High 70-99 [facility] Serum or plasma alanine kelley otransferase (ALT) measurementOrdered By: Ramone Smiley on 02-07-2025 ALT [Catalytic activity/Vol] 20 U/L <35 [facility] Serum or plasma albumin melanie urement (mass/volume)Ordered By: Ramone Smiley on 02-07-2025 Albumin [Mass/Vol] 3.3 g/dL Low 3.4-4.8 [facility] Serum or plasma albumin/glob ulin mass ratioOrdered By: Ramone Smiley on 02-07-2025 Albumin/Globulin [Mass ratio] 1.0 {ratio} 0.9-2.4 [facility] Serum or plasma alkaline lissa sphatase measurementOrdered By: Ramone Smiley on 02-07-2025 ALP [Catalytic activity/Vol] 86 U/L 35-104 [facility] Serum or plasma calcium melanie urement (mass/volume)Ordered By: Ramone Smiley on 02-07-2025 Calcium [Mass/Vol] 10.2 mg/dL 7.6-11.0 [facility] Serum or plasma urea nitroge n measurement (mass/volume)Ordered By: Ramone Smiley on 02-07-2025 Urea nitrogen [Mass/Vol] 24 mg/dL High 4-19 [facility] Sodium levelOrdered By: Ramone Smiley on 02-07-2025 Sodium [Moles/Vol] 136 mmol/L 133-145 [facility] Total proteinOrdered By: Lilliam Smiley on 02-07-2025 Protein [Mass/Vol] 6.5 g/dL 5.9-8.4 [facility] White blood cell (WBC) count Ordered By: Ramone Smiley on 02-07-2025 WBC (Bld) [#/Vol] 11.5 10*3/uL High 4.4-11.0 [facility] Bedside Glucoseon 02-06-2025 FINGERSTICK GLU 190 mg/dL High 74-106 [facility] Comment on above: Result Comment: KATARINA GEMENT OF PATIENT CARE PER NURSING PROTOCOL Performed By: #### L 501.080 ####[facility] [address] [place], [address] FINGERSTICK GLU 237 mg/dL High 74-106 [facility] Comment on above: Result Comment: KATARINA GEMENT OF PATIENT CARE PER NURSING PROTOCOL Performed By: #### L 501.080 ####[facility] [address] [place], [address] Discharge Instructionon 06-0 Discharge Instruction Normal [facility] Electrocardiogram reportOrde red By: Marcelina Soto on 02-06-2025 EKG study [facility] Work Phone: [facility] deOrdered By: Lucio Borden on 02-06-2025 Glucose [Mass/Vol] 190 mg/dL High 74-106 [facility] Anion gap in Serum or Plasma Ordered By: Lucio Borden on 02-05-2025 Anion gap [Moles/Vol] 15 mmol/L 5-15 [facility] BUN/creatinine ratioOrdered By: Lucio Borden on 02-05-2025 Urea nitrogen/Creatinine [Mass ratio] 16.1 mg/mg - [facility] Basic Metabolic Profile (BMP )on 02-05-2025 BUN/CRE 16.1 RATIO Normal 06-19 [facility] Comment on above: Performed By: #### L 500.2500 ####[facility] [address] [place], [address] Calcium [Mass/Vol] 9.1 mg/dL Normal 7.6-11.0 [facility] Comment on above: Performed By: #### L 500.2500 ####[facility] [address] [place], [address] Chloride [Moles/Vol] 94 mmol/L Low 98-108 [facility] Comment on above: Performed By: #### L 500.2500 ####[facility] [address] [place], [address] CO2 [Moles/Vol] 26.4 mmol/L Normal 21.0-32.0 [facility] Comment on above: Performed By: #### L 500.2500 ####[facility] [address] [place], [address] Creatinine [Mass/Vol] 1.06 mg/dL Normal 0.70-1.20 [facility] Comment on above: Performed By: #### L 500.2500 ####[facility] [address] [place], [address] ECRCL 39.38 ml/min Low 50-250 [facility] Comment on above: Performed By: #### L 500.2500 ####[facility] [address] [place], [address] GAP 15 Normal 5-15 [facility] Comment on above: Performed By: #### L 500.2500 ####[facility] [address] [place], [address] GFR/1.73 sq M.predicted among non-blacks MDRD (S/P/Bld) [Vol rate/Area] 53 mL/min/{1.73_m2} Low >60 [facility] Comment on above: Result Comment: mL/m in/1.73m2 CKD-EPI Creatinine Equation (2020) Performed By: #### L 500.2500 ####[facility] [address] [place], [address] Glucose [Mass/Vol] 272 mg/dL High 70-99 [facility] Comment on above: Performed By: #### L 500.2500 ####[facility] [address] [place], [address] Potassium [Moles/Vol] 4.2 mmol/L Normal 3.3-5.1 [facility] Comment on above: Performed By: #### L 500.2500 ####[facility] [address] [place], [address] Sodium [Moles/Vol] 135 mmol/L Normal 133-145 [facility] Comment on above: Performed By: #### L 500.2500 ####[facility] [address] [place], [address] Urea nitrogen [Mass/Vol] 17 mg/dL Normal 4-19 [facility] Comment on above: Performed By: #### L 500.2500 ####[facility] [address] [place], [address] Bedside Glucoseon 02-05-2025 FINGERSTICK GLU 156 mg/dL High 74-106 [facility] Comment on above: Result Comment: KATARINA GEMENT OF PATIENT CARE PER NURSING PROTOCOL Performed By: #### L 501.080 ####[facility] [address] [place], [address] FINGERSTICK GLU 128 mg/dL High -106 [facility] Comment on above: Result Comment: KATARINA GEMENT OF PATIENT CARE PER NURSING PROTOCOL Performed By: #### L 501.080 ####[facility] [address] [place], [address] FINGERSTICK GLU 296 mg/dL High 74-106 [facility] Comment on above: Result Comment: KATARINA GEMENT OF PATIENT CARE PER NURSING PROTOCOL Performed By: #### L 501.080 ####[facility] [address] [place], [address] FINGERSTICK GLU 238 mg/dL High -106 [facility] Comment on above: Result Comment: KATARINA GEMENT OF PATIENT CARE PER NURSING PROTOCOL Performed By: #### L 501.080 ####[facility] [address] [place], [address] Carbon dioxide, total [Moles /volume] in Central venous bloodOrdered By: Lucio Borden on 02-05-2025 CO2 [Moles/Vol] 26.4 mmol/L 21.0-32.0 [facility] Chloride assayOrdered By: Chen Borden on 02-05-2025 Chloride [Moles/Vol] 94 mmol/L Low 98-108 [facility] Glomerular filtration rate ( GFR) estimation/1.73 sq m using serum, plasma, or whole bOrdered By: Lucio Borden on 02-05-2025 GFR/1.73 sq M.predicted among non-blacks MDRD (S/P/Bld) [Vol rate/Area] 53 mL/min/{1.73_m2} Low >60 [facility] Potassium measurement (mass/ volume)Ordered By: Lucio Borden on 02-05-2025 Potassium (Unsp spec) [Mass/Vol] 4.2 mmol/L 3.3-5.1 [facility] Serum creatinine measurement (mass/volume)Ordered By: Lucio Borden on 02-05-2025 Creatinine [Mass/Vol] 1.06 mg/dL 0.70-1.20 [facility] Serum glucose measurement (m ass/volume)Ordered By: Lucio Borden on 02-05-2025 Glucose [Mass/Vol] 272 mg/dL High 70-99 [facility] Serum or plasma calcium melanie urement (mass/volume)Ordered By: Lucio oBrden on 02-05-2025 Calcium [Mass/Vol] 9.1 mg/dL 7.6-11.0 [facility] Serum or plasma urea nitroge n measurement (mass/volume)Ordered By: Lucio Borden on 02-05-2025 Urea nitrogen [Mass/Vol] 17 mg/dL 4-19 [facility] Sodium levelOrdered By: Lucio Borden on 02-05-2025 Sodium [Moles/Vol] 135 mmol/L 133-145 [facility] 12 Lead EKGon 02-04-2025 12 Lead EKG Normal [facility] Absolute lymphocyte countOrd ered By: Aj Holley on 02-04-2025 Lymphocytes Auto (Unsp spec) [#/Vol] 1.75 10*3/uL 0.83-4.51 [facility] Anion gap in Serum or Plasma Ordered By: Aj Holley on 02-04-2025 Anion gap [Moles/Vol] 16 mmol/L High 5-15 [facility] Automated lymphocyte count a s percentage of total leukocytesOrdered By: Aj Holley on 02-04-2025 Lymphocytes/100 WBC Auto (Unsp spec) 15.7 % Low 19-41 [facility] BUN/creatinine ratioOrdered By: Aj Holley on 02-04-2025 Urea nitrogen/Creatinine [Mass ratio] 13.2 mg/mg 10-20 [facility] Basic Metabolic Profile (BMP )on 02-04-2025 BUN/CRE 13.2 RATIO Normal - [facility] Comment on above: Performed By: #### L 500.2500, L100.0100 ####[facility] [address] [place], [address] Calcium [Mass/Vol] 8.9 mg/dL Normal 7.6-11.0 [facility] Comment on above: Performed By: #### L 500.2500, L100.0100 ####[facility] [address] [place], [address] Chloride [Moles/Vol] 95 mmol/L Low 98-108 [facility] Comment on above: Performed By: #### L 500.2500, L100.0100 ####[facility] [address] [place], [address] CO2 [Moles/Vol] 25.9 mmol/L Normal 21.0-32.0 [facility] Comment on above: Performed By: #### L 500.2500, L100.0100 ####[facility] [address] [place], [address] Creatinine [Mass/Vol] 1.14 mg/dL Normal 0.70-1.20 [facility] Comment on above: Performed By: #### L 500.2500, L100.0100 ####[facility] [address] [place], [address] ECRCL 37.95 ml/min Low 50-250 [facility] Comment on above: Performed By: #### L 500.2500, L100.0100 ####[facility] [address] [place], [address] GAP 16 High 5-15 [facility] Comment on above: Performed By: #### L 500.2500, L100.0100 ####[facility] [address] [place], [address] GFR/1.73 sq M.predicted among non-blacks MDRD (S/P/Bld) [Vol rate/Area] 48 mL/min/{1.73_m2} Low >60 [facility] Comment on above: Result Comment: mL/m in/1.73m2 CKD-EPI Creatinine Equation (2020) Performed By: #### L 500.2500, L100.0100 ####[facility] [address] [place], [address] Glucose [Mass/Vol] 132 mg/dL High 70-99 [facility] Comment on above: Performed By: #### L 500.2500, L100.0100 ####[facility] [address] [place], [address] Potassium [Moles/Vol] 3.9 mmol/L Normal 3.3-5.1 [facility] Comment on above: Result Comment: Hemo lysis present, Results??could be affected.?? Performed By: #### L 500.2500, L100.0100 ####[facility] [address] [place], [address] Sodium [Moles/Vol] 137 mmol/L Normal 133-145 [facility] Comment on above: Performed By: #### L 500.2500, L100.0100 ####[facility] [address] [place], [address] Urea nitrogen [Mass/Vol] 15 mg/dL Normal 4-19 [facility] Comment on above: Performed By: #### L 500.2500, L100.0100 ####[facility] [address] [place], [address] Basophil percentageOrdered B y: jA Holley on 02-04-2025 Basophils/100 WBC (Bld) 0.2 % 0-1 [facility] Bedside Glucoseon 02-04-2025 FINGERSTICK GLU 179 mg/dL High 74-106 [facility] Comment on above: Result Comment: KATARINA GEMENT OF PATIENT CARE PER NURSING PROTOCOL Performed By: #### L 501.080 ####[facility] [address] [place], [address] FINGERSTICK GLU 240 mg/dL High 74-106 [facility] Comment on above: Result Comment: KATARINA GEMENT OF PATIENT CARE PER NURSING PROTOCOL Performed By: #### L 501.080 ####[facility] [address] [place], [address] CBC W/Diff, Automatedon Absolute Lymph 1.75 X10 3/uL Normal 0.83-4.51 [facility] Comment on above: Performed By: #### L 500.2500, L100.0100 ####[facility] [address] [place], [address] Absolute Neut 8.4 X10 3/uL High 2.0-7.7 [facility] Comment on above: Performed By: #### L 500.2500, L100.0100 ####[facility] [address] [place], [address] Basophils/100 WBC (Bld) 0.2 % Normal 0-1 [facility] Comment on above: Performed By: #### L 500.2500, L100.0100 ####[facility] [address] [place], [address] Eosinophils/100 WBC (Bld) 1.7 % Normal 0-5 [facility] Comment on above: Performed By: #### L 500.2500, L100.0100 ####[facility] [address] [place], [address] Erythrocyte distribution width (RBC) [Ratio] 15.9 % High 11.6-14.6 [facility] Comment on above: Performed By: #### L 500.2500, L100.0100 ####[facility] [address] [place], [address] Hematocrit (Bld) [Volume fraction] 34.1 % Low 37-47 [facility] Comment on above: Performed By: #### L 500.2500, L100.0100 ####[facility] [address] [place], [address] Hemoglobin (Bld) [Mass/Vol] 10.7 g/dL Low 12.0-15.0 [facility] Comment on above: Performed By: #### L 500.2500, L100.0100 ####[facility] [address] [place], [address] IG% 0.400 Normal 0.0-0.9 [facility] Comment on above: Result Comment: IG% - Immature Granulocytes (promyelocytes, myelocytes andmetamyelocytes) > 1% indicates that a LEFT SHIFT is Present. Performed By: #### L 500.2500, L100.0100 ####[facility] [address] [place], [address] Lymphocytes/100 WBC (Bld) 15.7 % Low 19-41 [facility] Comment on above: Performed By: #### L 500.2500, L100.0100 ####[facility] [address] [place], [address] MCH (RBC) [Entitic mass] 27.9 pg Normal 27.0-32.0 [facility] Comment on above: Performed By: #### L 500.2500, L100.0100 ####[facility] [address] [place], [address] MCHC (RBC) [Mass/Vol] 31.4 g/dL Low 32-36 [facility] Comment on above: Performed By: #### L 500.2500, L100.0100 ####[facility] [address] [place], [address] MCV (RBC) [Entitic vol] 88.8 fL Normal 81-99 [facility] Comment on above: Performed By: #### L 500.2500, L100.0100 ####[facility] [address] [place], [address] Monocytes/100 WBC (Bld) 6.6 % Normal 0-10 [facility] Comment on above: Performed By: #### L 500.2500, L100.0100 ####[facility] [address] [place], [address] Neutrophils/100 WBC (Bld) 75.4 % High 47-70 [facility] Comment on above: Performed By: #### L 500.2500, L100.0100 ####[facility] [address] [place], [address] Nucleated RBC (Bld) [#/Vol] 0 10*3/uL Normal 0-5 [facility] Comment on above: Performed By: #### L 500.2500, L100.0100 ####[facility] [address] [place], [address] Platelet mean volume (Bld) [Entitic vol] 11.3 fL Normal 6.2-12.0 [facility] Comment on above: Performed By: #### L 500.2500, L100.0100 ####[facility] [address] [place], [address] Platelets (Bld) [#/Vol] 185 10*3/uL Normal 150-450 [facility] Comment on above: Performed By: #### L 500.2500, L100.0100 ####[facility] [address] [place], [address] RBC (Bld) [#/Vol] 3.84 10*6/uL Low 4.2-5.4 [facility] Comment on above: Performed By: #### L 500.2500, L100.0100 ####[facility] [address] [place], [address] RDW SD 51.4 fl High 35.1-43.9 [facility] Comment on above: Performed By: #### L 500.2500, L100.0100 ####[facility] [address] [place], [address] WBC (Bld) [#/Vol] 11.2 10*3/uL High 4.4-11.0 [facility] Comment on above: Performed By: #### L 500.2500, L100.0100 ####[facility] [address] [place], [address] CTA Chest W/WO Contraston CTA Chest W/WO Contrast Normal [facility] Carbon dioxide, total [Moles /volume] in Central venous bloodOrdered By: Aj Holley on 02-04-2025 CO2 [Moles/Vol] 25.9 mmol/L 21.0-32.0 [facility] Chest PA and Lateralon 02-04 Chest PA and Lateral Normal [facility] Chloride assayOrdered By: Dahlia Holley on 02-04-2025 Chloride [Moles/Vol] 95 mmol/L Low 98-108 [facility] Emergency Department Summary on 02-04-2025 Emergency Department Summary Normal [facility] Eosinophil percentageOrdered By: Aj Holley on 02-04-2025 Eosinophils/100 WBC (Bld) 1.7 % 0-5 [facility] Erythrocyte distribution wid th ratioOrdered By: Aj Holley on 02-04-2025 Erythrocyte distribution width (RBC) [Ratio] 15.9 % High 11.6-14.6 [facility] Erythrocyte distribution wid th standard deviationOrdered By: Aj Holley on 02-04-2025 Erythrocyte distribution width (RBC) [Ratio] 51.4 fl High 35.1-43.9 [facility] Glomerular filtration rate ( GFR) estimation/1.73 sq m using serum, plasma, or whole bOrdered By: Aj Holley on 02-04-2025 GFR/1.73 sq M.predicted among non-blacks MDRD (S/P/Bld) [Vol rate/Area] 48 mL/min/{1.73_m2} Low >60 [facility] H AND P Exam - Hospitaliston 02-04-2025 H&P Exam - [facility] Hematocrit Auto (Bld) [Volum e fraction]Ordered By: Aj Holley on 02-04-2025 Hematocrit (Bld) [Volume fraction] 34.1 % Low 37-47 [facility] Hemoglobin measurementOrdere d By: Aj Holley on 02-04-2025 Hemoglobin (Bld) [Mass/Vol] 10.7 g/dL Low 12.0-15.0 [facility] Immature granulocytes/100 WB C Auto (Bld)Ordered By: Aj Holley on 02-04-2025 Immature granulocytes/100 WBC (Bld) 0.400 % 0.0-0.9 [facility] L499.0042on 02-04-2025 Trop T High Sen 133 ng/L Invalid Interpretation Code <=14 [facility] Comment on above: Result Comment: Crit ical Result(s) Called at 0915: by: SHARONA EASLEY. ??Results read back by same. Performed By: #### L 499.0042 ####[facility] [address] [place], [place], [address] L499.0043on 02-04-2025 Trop T High Sen 139 ng/L Invalid Interpretation Code <=14 [facility] Comment on above: Result Comment: Crit ical Result(s) Called at 1125: by: Michael Arnett.??Results read back by same. Performed By: #### L 499.0043 ####[facility] [address] [place], [place], [address] L501.4021on 02-04-2025 Trop T High Sen 139 ng/L Invalid Interpretation Code <=14 [facility] Comment on above: Result Comment: Candie ical Result(s) Called at 0809: by: SHARONA GO.??Results read back by same. Performed By: #### L 501.4021, L503.7505 ####[facility] [address] [place], [place], [address] L503.7505on 02-04-2025 Natriuretic peptide B (Bld) [Mass/Vol] 6247 pg/mL High <=1800 [facility] Comment on above: Result Comment: Hear t Failure Unlikely: < 300 pg/mLHeart Failure Likely< 50 Years: > 450 pg/mL50-75 Years: > 900 pg/mL>75 Years: > 1800 pg/mL Performed By: #### L 501.4021, L503.7505 ####[facility] [address] [place], [place], [address] MCV (mean corpuscular volume ) determinationOrdered By: Aj Holley on 02-04-2025 MCV (RBC) [Entitic vol] 88.8 fL 81-99 [facility] Mean corpuscular hemoglobin (MCH) determinationOrdered By: Aj Holley on 02-04-2025 MCH (RBC) [Entitic mass] 27.9 pg 27.0-32.0 [facility] Monocyte percentageOrdered B y: Aj Holley on 02-04-2025 Monocytes/100 WBC (Bld) 6.6 % 0-10 [facility] Natriuretic peptide.B prohor hayley N-Terminal [Mass/volume] in Serum or PlasmaOrdered By: Aj Holley on 02-04-2025 Natriuretic peptide.B prohormone N-Terminal [Mass/Vol] 6247 pg/mL High <1800 [facility] Neutrophil percentageOrdered By: Aj Holley on 02-04-2025 Neutrophils/100 WBC (Bld) 75.4 % High 47-70 [facility] Platelet countOrdered By: Dahlia Holley on 02-04-2025 Platelets (Bld) [#/Vol] 185 10*3/uL 150-450 [facility] Potassium measurement (mass/ volume)Ordered By: Aj Holley on 02-04-2025 Potassium (Unsp spec) [Mass/Vol] 3.9 mmol/L 3.3-5.1 [facility] RBC Auto (Bld) [#/Vol]Ordere d By: Aj Holley on 02-04-2025 RBC (Bld) [#/Vol] 3.84 10*6/uL Low 4.2-5.4 [facility] Serum creatinine measurement (mass/volume)Ordered By: Aj Holley on 02-04-2025 Creatinine [Mass/Vol] 1.14 mg/dL 0.70-1.20 [facility] Serum glucose measurement (m ass/volume)Ordered By: Aj Holley on 02-04-2025 Glucose [Mass/Vol] 132 mg/dL High 70-99 [facility] Serum or plasma calcium melanie urement (mass/volume)Ordered By: Aj Holley on 02-04-2025 Calcium [Mass/Vol] 8.9 mg/dL 7.6-11.0 [facility] Serum or plasma urea nitroge n measurement (mass/volume)Ordered By: Aj Holley on 02-04-2025 Urea nitrogen [Mass/Vol] 15 mg/dL 4-19 [facility] Sodium levelOrdered By: Reynaldo Holley on 02-04-2025 Sodium [Moles/Vol] 137 mmol/L 133-145 [facility] Troponin T.cardiac [Mass/vol ume] in Serum or Plasma by High sensitivity methodOrdered By: Aj Holley on 02-04-2025 Troponin T.cardiac High sensitivity method [Mass/Vol] 139 ng/L High <14 [facility] Troponin T.cardiac High sensitivity method [Mass/Vol] 133 ng/L High <14 [facility] Troponin T.cardiac High sensitivity method [Mass/Vol] 139 ng/L High <14 [facility] White blood cell (WBC) count Ordered By: Aj Holley on 02-04-2025 WBC (Bld) [#/Vol] 11.2 10*3/uL High 4.4-11.0 [facility] Cardiology Visit Reporton Cardiology Visit Report Normal [facility] Basic Metabolic Profile (BMP )on 01-30-2025 BUN Normal 4-19 [facility] Comment on above: Result Comment: Canc elled via OM: Order cancelled - Patient discharged Performed By: #### L 500.2500, L100.0100 ####[facility] [address] [place], [address] BUN/CRE Normal 10-20 [facility] Comment on above: Result Comment: Canc elled via OM: Order cancelled - Patient discharged Performed By: #### L 500.2500, L100.0100 ####[facility] [address] [place], [address] Calcium Normal 7.6-11.0 [facility] Comment on above: Result Comment: Canc elled via OM: Order cancelled - Patient discharged Performed By: #### L 500.2500, L100.0100 ####[facility] [address] [place], [address] CL Normal 98-108 [facility] Comment on above: Result Comment: Canc elled via OM: Order cancelled - Patient discharged Performed By: #### L 500.2500, L100.0100 ####[facility] [address] [place], [address] CO2 Normal 21.0-32.0 [facility] Comment on above: Result Comment: Canc elled via OM: Order cancelled - Patient discharged Performed By: #### L 500.2500, L100.0100 ####[facility] [address] [place], [address] CREAT,SERUM Normal 0.70-1.20 [facility] Comment on above: Result Comment: Canc elled via OM: Order cancelled - Patient discharged Performed By: #### L 500.2500, L100.0100 ####[facility] [address] [place], [address] eGFR Normal >60 [facility] Comment on above: Result Comment: Canc elled via OM: Order cancelled - Patient discharged Performed By: #### L 500.2500, L100.0100 ####[facility] [address] [place], [address] GAP Normal 5-15 [facility] Comment on above: Result Comment: Canc elled via OM: Order cancelled - Patient discharged Performed By: #### L 500.2500, L100.0100 ####[facility] [address] [place], [address] GLU Normal 70-99 [facility] Comment on above: Result Comment: Canc elled via OM: Order cancelled - Patient discharged Performed By: #### L 500.2500, L100.0100 ####[facility] [address] [place], [address] Potassium Normal 3.3-5.1 [facility] Comment on above: Result Comment: Canc elled via OM: Order cancelled - Patient discharged Performed By: #### L 500.2500, L100.0100 ####[facility] [address] [place], [address] Basic Metabolic Profile (BMP) Normal 133-145 [facility] Comment on above: Result Comment: Canc elled via OM: Order cancelled - Patient discharged Performed By: #### L 500.2500, L100.0100 ####[facility] [address] [place], [address] CBC W/Diff, Automatedon 06-0 2-2024 Absolute Neut Normal 2.0-7.7 [facility] Comment on above: Result Comment: Canc elled via OM: Order cancelled - Patient discharged Performed By: #### L 500.2500, L100.0100 ####[facility] [address] [place], [address] HCT Normal 37-47 [facility] Comment on above: Result Comment: Canc elled via OM: Order cancelled - Patient discharged Performed By: #### L 500.2500, L100.0100 ####[facility] [address] [place], [address] HGB Normal 12.0-15.0 [facility] Comment on above: Result Comment: Canc elled via OM: Order cancelled - Patient discharged Performed By: #### L 500.2500, L100.0100 ####[facility] [address] [place], [address] MCH Normal 27.0-32.0 [facility] Comment on above: Result Comment: Canc elled via OM: Order cancelled - Patient discharged Performed By: #### L 500.2500, L100.0100 ####[facility] [address] [place], [address] MCHC Normal 32-36 [facility] Comment on above: Result Comment: Canc elled via OM: Order cancelled - Patient discharged Performed By: #### L 500.2500, L100.0100 ####[facility] [address] [place], [address] MCV Normal 81-99 [facility] Comment on above: Result Comment: Canc elled via OM: Order cancelled - Patient discharged Performed By: #### L 500.2500, L100.0100 ####[facility] [address] [place], [address] NEUT% Normal 47-70 [facility] Comment on above: Result Comment: Canc elled via OM: Order cancelled - Patient discharged Performed By: #### L 500.2500, L100.0100 ####[facility] [address] [place], [address] PLT Normal 150-450 [facility] Comment on above: Result Comment: Canc elled via OM: Order cancelled - Patient discharged Performed By: #### L 500.2500, L100.0100 ####[facility] [address] [place], [address] RBC Normal 4.2-5.4 [facility] Comment on above: Result Comment: Canc elled via OM: Order cancelled - Patient discharged Performed By: #### L 500.2500, L100.0100 ####[facility] [address] [place], [address] RDW CV Normal 11.6-14.6 [facility] Comment on above: Result Comment: Canc elled via OM: Order cancelled - Patient discharged Performed By: #### L 500.2500, L100.0100 ####[facility] [address] [place], [address] RDW SD Normal 35.1-43.9 [facility] Comment on above: Result Comment: Canc elled via OM: Order cancelled - Patient discharged Performed By: #### L 500.2500, L100.0100 ####[facility] [address] [place], [address] WBC Normal 4.4-11.0 [facility] Comment on above: Result Comment: Canc elled via OM: Order cancelled - Patient discharged Performed By: #### L 500.2500, L100.0100 ####[facility] [address] [place], [address] Basic Metabolic Profile (BMP )on 01-29-2025 BUN Normal 4-19 [facility] Comment on above: Result Comment: Canc elled via OM: Order cancelled - Patient discharged Performed By: #### L 100.0100, L500.2500 ####[facility] [address] [place], [address] BUN/CRE Normal 10-20 [facility] Comment on above: Result Comment: Canc elled via OM: Order cancelled - Patient discharged Performed By: #### L 100.0100, L500.2500 ####[facility] [address] [place], [address] Calcium Normal 7.6-11.0 [facility] Comment on above: Result Comment: Canc elled via OM: Order cancelled - Patient discharged Performed By: #### L 100.0100, L500.2500 ####[facility] [address] [place], [address] CL Normal 98-108 [facility] Comment on above: Result Comment: Canc elled via OM: Order cancelled - Patient discharged Performed By: #### L 100.0100, L500.2500 ####[facility] [address] [place], [address] CO2 Normal 21.0-32.0 [facility] Comment on above: Result Comment: Canc elled via OM: Order cancelled - Patient discharged Performed By: #### L 100.0100, L500.2500 ####[facility] [address] [place], [address] CREAT,SERUM Normal 0.70-1.20 [facility] Comment on above: Result Comment: Canc elled via OM: Order cancelled - Patient discharged Performed By: #### L 100.0100, L500.2500 ####[facility] [address] [place], [address] eGFR Normal >60 [facility] Comment on above: Result Comment: Canc elled via OM: Order cancelled - Patient discharged Performed By: #### L 100.0100, L500.2500 ####[facility] [address] [place], [address] GAP Normal 5-15 [facility] Comment on above: Result Comment: Canc elled via OM: Order cancelled - Patient discharged Performed By: #### L 100.0100, L500.2500 ####[facility] [address] [place], [address] GLU Normal 70-99 [facility] Comment on above: Result Comment: Canc elled via OM: Order cancelled - Patient discharged Performed By: #### L 100.0100, L500.2500 ####[facility] [address] [place], [address] Potassium Normal 3.3-5.1 [facility] Comment on above: Result Comment: Canc elled via OM: Order cancelled - Patient discharged Performed By: #### L 100.0100, L500.2500 ####[facility] [address] [place], [address] Basic Metabolic Profile (BMP) Normal 133-145 [facility] Comment on above: Result Comment: Canc elled via OM: Order cancelled - Patient discharged Performed By: #### L 100.0100, L500.2500 ####[facility] [address] [place], [address] CBC W/Diff, Automatedon 06-0 Absolute Neut Normal 2.0-7.7 [facility] Comment on above: Result Comment: Canc elled via OM: Order cancelled - Patient discharged Performed By: #### L 100.0100, L500.2500 ####[facility] [address] [place], [address] HCT Normal 37-47 [facility] Comment on above: Result Comment: Canc elled via OM: Order cancelled - Patient discharged Performed By: #### L 100.0100, L500.2500 ####[facility] [address] [place], [address] HGB Normal 12.0-15.0 [facility] Comment on above: Result Comment: Canc elled via OM: Order cancelled - Patient discharged Performed By: #### L 100.0100, L500.2500 ####[facility] [address] [place], [address] MCH Normal 27.0-32.0 [facility] Comment on above: Result Comment: Canc elled via OM: Order cancelled - Patient discharged Performed By: #### L 100.0100, L500.2500 ####[facility] [address] [place], [address] MCHC Normal 32-36 [facility] Comment on above: Result Comment: Canc elled via OM: Order cancelled - Patient discharged Performed By: #### L 100.0100, L500.2500 ####[facility] [address] [place], [address] MCV Normal 81-99 [facility] Comment on above: Result Comment: Canc elled via OM: Order cancelled - Patient discharged Performed By: #### L 100.0100, L500.2500 ####[facility] [address] [place], [address] NEUT% Normal 47-70 [facility] Comment on above: Result Comment: Canc elled via OM: Order cancelled - Patient discharged Performed By: #### L 100.0100, L500.2500 ####[facility] [address] [place], [address] PLT Normal 150-450 [facility] Comment on above: Result Comment: Canc elled via OM: Order cancelled - Patient discharged Performed By: #### L 100.0100, L500.2500 ####[facility] [address] [place], [address] RBC Normal 4.2-5.4 [facility] Comment on above: Result Comment: Canc elled via OM: Order cancelled - Patient discharged Performed By: #### L 100.0100, L500.2500 ####[facility] [address] [place], [address] RDW CV Normal 11.6-14.6 [facility] Comment on above: Result Comment: Canc elled via OM: Order cancelled - Patient discharged Performed By: #### L 100.0100, L500.2500 ####[facility] [address] [place], [address] RDW SD Normal 35.1-43.9 [facility] Comment on above: Result Comment: Canc elled via OM: Order cancelled - Patient discharged Performed By: #### L 100.0100, L500.2500 ####[facility] [address] [place], [address] WBC Normal 4.4-11.0 [facility] Comment on above: Result Comment: Canc elled via OM: Order cancelled - Patient discharged Performed By: #### L 100.0100, L500.2500 ####[facility] [address] [place], [address] Basic Metabolic Profile (BMP )on 01-28-2025 BUN Normal 4-19 [facility] Comment on above: Result Comment: Canc elled via OM: Order cancelled - Patient discharged Performed By: #### L 500.2500, L100.0100 ####[facility] [address] [place], [address] BUN/CRE Normal 10-20 [facility] Comment on above: Result Comment: Canc elled via OM: Order cancelled - Patient discharged Performed By: #### L 500.2500, L100.0100 ####[facility] [address] [place], [address] Calcium Normal 7.6-11.0 [facility] Comment on above: Result Comment: Canc elled via OM: Order cancelled - Patient discharged Performed By: #### L 500.2500, L100.0100 ####[facility] [address] [place], [address] CL Normal 98-108 [facility] Comment on above: Result Comment: Canc elled via OM: Order cancelled - Patient discharged Performed By: #### L 500.2500, L100.0100 ####[facility] [address] [place], [address] CO2 Normal 21.0-32.0 [facility] Comment on above: Result Comment: Canc elled via OM: Order cancelled - Patient discharged Performed By: #### L 500.2500, L100.0100 ####[facility] [address] [place], [address] CREAT,SERUM Normal 0.70-1.20 [facility] Comment on above: Result Comment: Canc elled via OM: Order cancelled - Patient discharged Performed By: #### L 500.2500, L100.0100 ####[facility] [address] [place], [address] eGFR Normal >60 [facility] Comment on above: Result Comment: Canc elled via OM: Order cancelled - Patient discharged Performed By: #### L 500.2500, L100.0100 ####[facility] [address] [place], [address] GAP Normal 5-15 [facility] Comment on above: Result Comment: Canc elled via OM: Order cancelled - Patient discharged Performed By: #### L 500.2500, L100.0100 ####[facility] [address] [place], [address] GLU Normal 70-99 [facility] Comment on above: Result Comment: Canc elled via OM: Order cancelled - Patient discharged Performed By: #### L 500.2500, L100.0100 ####[facility] [address] [place], [address] Potassium Normal 3.3-5.1 [facility] Comment on above: Result Comment: Canc elled via OM: Order cancelled - Patient discharged Performed By: #### L 500.2500, L100.0100 ####[facility] [address] [place], [address] Basic Metabolic Profile (BMP) Normal 133-145 [facility] Comment on above: Result Comment: Canc elled via OM: Order cancelled - Patient discharged Performed By: #### L 500.2500, L100.0100 ####[facility] [address] [place], [address] CBC W/Diff, Automatedon 05-3 Absolute Neut Normal 2.0-7.7 [facility] Comment on above: Result Comment: Canc elled via OM: Order cancelled - Patient discharged Performed By: #### L 500.2500, L100.0100 ####[facility] [address] [place], [address] HCT Normal 37-47 [facility] Comment on above: Result Comment: Canc elled via OM: Order cancelled - Patient discharged Performed By: #### L 500.2500, L100.0100 ####[facility] [address] [place], [address] HGB Normal 12.0-15.0 [facility] Comment on above: Result Comment: Canc elled via OM: Order cancelled - Patient discharged Performed By: #### L 500.2500, L100.0100 ####[facility] [address] [place], [address] MCH Normal 27.0-32.0 [facility] Comment on above: Result Comment: Canc elled via OM: Order cancelled - Patient discharged Performed By: #### L 500.2500, L100.0100 ####[facility] [address] [place], [address] MCHC Normal 32-36 [facility] Comment on above: Result Comment: Canc elled via OM: Order cancelled - Patient discharged Performed By: #### L 500.2500, L100.0100 ####[facility] [address] [place], [address] MCV Normal 81-99 [facility] Comment on above: Result Comment: Canc elled via OM: Order cancelled - Patient discharged Performed By: #### L 500.2500, L100.0100 ####[facility] [address] [place], [address] NEUT% Normal 47-70 [facility] Comment on above: Result Comment: Canc elled via OM: Order cancelled - Patient discharged Performed By: #### L 500.2500, L100.0100 ####[facility] [address] [place], [address] PLT Normal 150-450 [facility] Comment on above: Result Comment: Canc elled via OM: Order cancelled - Patient discharged Performed By: #### L 500.2500, L100.0100 ####[facility] [address] [place], [address] RBC Normal 4.2-5.4 [facility] Comment on above: Result Comment: Canc elled via OM: Order cancelled - Patient discharged Performed By: #### L 500.2500, L100.0100 ####[facility] [address] [place], [address] RDW CV Normal 11.6-14.6 [facility] Comment on above: Result Comment: Canc elled via OM: Order cancelled - Patient discharged Performed By: #### L 500.2500, L100.0100 ####[facility] [address] [place], [address] RDW SD Normal 35.1-43.9 [facility] Comment on above: Result Comment: Canc elled via OM: Order cancelled - Patient discharged Performed By: #### L 500.2500, L100.0100 ####[facility] [address] [place], [address] WBC Normal 4.4-11.0 [facility] Comment on above: Result Comment: Canc elled via OM: Order cancelled - Patient discharged Performed By: #### L 500.2500, L100.0100 ####[facility] [address] [place], [address] Basic Metabolic Profile (BMP )on 01-27-2025 BUN Normal 4-19 [facility] Comment on above: Result Comment: Canc elled via OM: Order cancelled - Patient discharged Performed By: #### L 500.2500, L100.0100 ####[facility] [address] [place], [address] BUN/CRE Normal 10-20 [facility] Comment on above: Result Comment: Canc elled via OM: Order cancelled - Patient discharged Performed By: #### L 500.2500, L100.0100 ####[facility] [address] [place], [address] Calcium Normal 7.6-11.0 [facility] Comment on above: Result Comment: Canc elled via OM: Order cancelled - Patient discharged Performed By: #### L 500.2500, L100.0100 ####[facility] [address] [place], [address] CL Normal 98-108 [facility] Comment on above: Result Comment: Canc elled via OM: Order cancelled - Patient discharged Performed By: #### L 500.2500, L100.0100 ####[facility] [address] [place], [address] CO2 Normal 21.0-32.0 [facility] Comment on above: Result Comment: Canc elled via OM: Order cancelled - Patient discharged Performed By: #### L 500.2500, L100.0100 ####[facility] [address] [place], [address] CREAT,SERUM Normal 0.70-1.20 [facility] Comment on above: Result Comment: Canc elled via OM: Order cancelled - Patient discharged Performed By: #### L 500.2500, L100.0100 ####[facility] [address] [place], [address] eGFR Normal >60 [facility] Comment on above: Result Comment: Canc elled via OM: Order cancelled - Patient discharged Performed By: #### L 500.2500, L100.0100 ####[facility] [address] [place], [address] GAP Normal 5-15 [facility] Comment on above: Result Comment: Canc elled via OM: Order cancelled - Patient discharged Performed By: #### L 500.2500, L100.0100 ####[facility] [address] [place], [address] GLU Normal 70-99 [facility] Comment on above: Result Comment: Canc elled via OM: Order cancelled - Patient discharged Performed By: #### L 500.2500, L100.0100 ####[facility] [address] [place], [address] Potassium Normal 3.3-5.1 [facility] Comment on above: Result Comment: Canc elled via OM: Order cancelled - Patient discharged Performed By: #### L 500.2500, L100.0100 ####[facility] [address] [place], [address] Basic Metabolic Profile (BMP) Normal 133-145 [facility] Comment on above: Result Comment: Canc elled via OM: Order cancelled - Patient discharged Performed By: #### L 500.2500, L100.0100 ####[facility] [address] [place], [address] CBC W/Diff, Automatedon 05-3 0-2024 Absolute Neut Normal 2.0-7.7 [facility] Comment on above: Result Comment: Canc elled via OM: Order cancelled - Patient discharged Performed By: #### L 500.2500, L100.0100 ####[facility] [address] [place], [address] HCT Normal 37-47 [facility] Comment on above: Result Comment: Canc elled via OM: Order cancelled - Patient discharged Performed By: #### L 500.2500, L100.0100 ####[facility] [address] [place], [address] HGB Normal 12.0-15.0 [facility] Comment on above: Result Comment: Canc elled via OM: Order cancelled - Patient discharged Performed By: #### L 500.2500, L100.0100 ####[facility] [address] [place], [address] MCH Normal 27.0-32.0 [facility] Comment on above: Result Comment: Canc elled via OM: Order cancelled - Patient discharged Performed By: #### L 500.2500, L100.0100 ####[facility] [address] [place], [address] MCHC Normal 32-36 [facility] Comment on above: Result Comment: Canc elled via OM: Order cancelled - Patient discharged Performed By: #### L 500.2500, L100.0100 ####[facility] [address] [place], [address] MCV Normal 81-99 [facility] Comment on above: Result Comment: Canc elled via OM: Order cancelled - Patient discharged Performed By: #### L 500.2500, L100.0100 ####[facility] [address] [place], [address] NEUT% Normal 47-70 [facility] Comment on above: Result Comment: Canc elled via OM: Order cancelled - Patient discharged Performed By: #### L 500.2500, L100.0100 ####[facility] [address] [place], [address] PLT Normal 150-450 [facility] Comment on above: Result Comment: Canc elled via OM: Order cancelled - Patient discharged Performed By: #### L 500.2500, L100.0100 ####[facility] [address] [place], [address] RBC Normal 4.2-5.4 [facility] Comment on above: Result Comment: Canc elled via OM: Order cancelled - Patient discharged Performed By: #### L 500.2500, L100.0100 ####[facility] [address] [place], [address] RDW CV Normal 11.6-14.6 [facility] Comment on above: Result Comment: Canc elled via OM: Order cancelled - Patient discharged Performed By: #### L 500.2500, L100.0100 ####[facility] [address] [place], [address] RDW SD Normal 35.1-43.9 [facility] Comment on above: Result Comment: Canc elled via OM: Order cancelled - Patient discharged Performed By: #### L 500.2500, L100.0100 ####[facility] [address] [place], [address] WBC Normal 4.4-11.0 [facility] Comment on above: Result Comment: Canc elled via OM: Order cancelled - Patient discharged Performed By: #### L 500.2500, L100.0100 ####[facility] [address] [place], [address] Absolute lymphocyte countOrd ered By: Jg Bryan on 01-26-2025 Lymphocytes Auto (Unsp spec) [#/Vol] 2.24 10*3/uL 0.83-4.51 [facility] Anion gap in Serum or Plasma Ordered By: Jg Bryan on 01-26-2025 Anion gap [Moles/Vol] 10 mmol/L 5-15 [facility] Automated lymphocyte count a s percentage of total leukocytesOrdered By: Jg Bryan on 01-26-2025 Lymphocytes/100 WBC Auto (Unsp spec) 25.1 % - [facility] BUN/creatinine ratioOrdered By: Jg Bryan on 01-26-2025 Urea nitrogen/Creatinine [Mass ratio] 30.2 mg/mg High 10-20 [facility] Basic Metabolic Profile (BMP )on 01-26-2025 BUN Normal 4-19 [facility] Comment on above: Result Comment: Canc elled via OM: Order cancelled - Patient discharged Performed By: #### L 500.2500, L100.0100 ####[facility] [address] [place], [address] BUN/CRE Normal 10- [facility] Comment on above: Result Comment: Canc elled via OM: Order cancelled - Patient discharged Performed By: #### L 500.2500, L100.0100 ####[facility] [address] [place], [address] Calcium Normal 7.6-11.0 [facility] Comment on above: Result Comment: Canc elled via OM: Order cancelled - Patient discharged Performed By: #### L 500.2500, L100.0100 ####[facility] [address] [place], [address] CL Normal 98-108 [facility] Comment on above: Result Comment: Canc elled via OM: Order cancelled - Patient discharged Performed By: #### L 500.2500, L100.0100 ####[facility] [address] [place], [address] CO2 Normal 21.0-32.0 [facility] Comment on above: Result Comment: Canc elled via OM: Order cancelled - Patient discharged Performed By: #### L 500.2500, L100.0100 ####[facility] [address] [place], [address] CREAT,SERUM Normal 0.70-1.20 [facility] Comment on above: Result Comment: Canc elled via OM: Order cancelled - Patient discharged Performed By: #### L 500.2500, L100.0100 ####[facility] [address] [place], [address] eGFR Normal >60 [facility] Comment on above: Result Comment: Canc elled via OM: Order cancelled - Patient discharged Performed By: #### L 500.2500, L100.0100 ####[facility] [address] [place], [address] GAP Normal 5-15 [facility] Comment on above: Result Comment: Canc elled via OM: Order cancelled - Patient discharged Performed By: #### L 500.2500, L100.0100 ####[facility] [address] [place], [address] GLU Normal 70-99 [facility] Comment on above: Result Comment: Canc elled via OM: Order cancelled - Patient discharged Performed By: #### L 500.2500, L100.0100 ####[facility] [address] [place], [address] Potassium Normal 3.3-5.1 [facility] Comment on above: Result Comment: Canc elled via OM: Order cancelled - Patient discharged Performed By: #### L 500.2500, L100.0100 ####[facility] [address] [place], [address] Basic Metabolic Profile (BMP) Normal 133-145 [facility] Comment on above: Result Comment: Canc elled via OM: Order cancelled - Patient discharged Performed By: #### L 500.2500, L100.0100 ####[facility] [address] [place], [address] BUN/CRE 30.2 RATIO High 10-20 [facility] Comment on above: Performed By: #### L 501.5200, L503.7505, L500.2500, L100.0100 ####[facility] [address] [place], [address] Calcium [Mass/Vol] 10.2 mg/dL Normal 7.6-11.0 [facility] Comment on above: Performed By: #### L 501.5200, L503.7505, L500.2500, L100.0100 ####[facility] [address] [place], [address] Chloride [Moles/Vol] 104 mmol/L Normal 98-108 [facility] Comment on above: Performed By: #### L 501.5200, L503.7505, L500.2500, L100.0100 ####[facility] [address] [place], [address] CO2 [Moles/Vol] 27.1 mmol/L Normal 21.0-32.0 [facility] Comment on above: Performed By: #### L 501.5200, L503.7505, L500.2500, L100.0100 ####[facility] [address] [place], [address] Creatinine [Mass/Vol] 1.16 mg/dL Normal 0.70-1.20 [facility] Comment on above: Performed By: #### L 501.5200, L503.7505, L500.2500, L100.0100 ####[facility] [address] [place], [address] ECRCL 38.24 ml/min Low 50-250 [facility] Comment on above: Performed By: #### L 501.5200, L503.7505, L500.2500, L100.0100 ####[facility] [address] [place], [address] GAP 10 Normal 5-15 [facility] Comment on above: Performed By: #### L 501.5200, L503.7505, L500.2500, L100.0100 ####[facility] [address] [place], [address] GFR/1.73 sq M.predicted among non-blacks MDRD (S/P/Bld) [Vol rate/Area] 47 mL/min/{1.73_m2} Low >60 [facility] Comment on above: Result Comment: mL/m in/1.73m2 CKD-EPI Creatinine Equation (2020) Performed By: #### L 501.5200, L503.7505, L500.2500, L100.0100 ####[facility] [address] [place], [address] Glucose [Mass/Vol] 211 mg/dL High 70-99 [facility] Comment on above: Performed By: #### L 501.5200, L503.7505, L500.2500, L100.0100 ####[facility] [address] [place], [address] Potassium [Moles/Vol] 4.1 mmol/L Normal 3.3-5.1 [facility] Comment on above: Performed By: #### L 501.5200, L503.7505, L500.2500, L100.0100 ####[facility] [address] [place], [address] Sodium [Moles/Vol] 141 mmol/L Normal 133-145 [facility] Comment on above: Performed By: #### L 501.5200, L503.7505, L500.2500, L100.0100 ####[facility] [address] [place], [address] Urea nitrogen [Mass/Vol] 35 mg/dL High 4-19 [facility] Comment on above: Performed By: #### L 501.5200, L503.7505, L500.2500, L100.0100 ####[facility] [address] [place], [address] Basophil percentageOrdered B y: Jg Bryan on 01-26-2025 Basophils/100 WBC (Bld) 0.1 % 0-1 [facility] CBC W/Diff, Automatedon 05 Absolute Neut Normal 2.0-7.7 [facility] Comment on above: Result Comment: Canc elled via OM: Order cancelled - Patient discharged Performed By: #### L 500.2500, L100.0100 ####[facility] [address] [place], [address] HCT Normal 37-47 [facility] Comment on above: Result Comment: Canc elled via OM: Order cancelled - Patient discharged Performed By: #### L 500.2500, L100.0100 ####[facility] [address] [place], [address] HGB Normal 12.0-15.0 [facility] Comment on above: Result Comment: Canc elled via OM: Order cancelled - Patient discharged Performed By: #### L 500.2500, L100.0100 ####[facility] [address] [place], [address] MCH Normal 27.0-32.0 [facility] Comment on above: Result Comment: Canc elled via OM: Order cancelled - Patient discharged Performed By: #### L 500.2500, L100.0100 ####[facility] [address] [place], [address] MCHC Normal 32-36 [facility] Comment on above: Result Comment: Canc elled via OM: Order cancelled - Patient discharged Performed By: #### L 500.2500, L100.0100 ####[facility] [address] [place], [address] MCV Normal 81-99 [facility] Comment on above: Result Comment: Canc elled via OM: Order cancelled - Patient discharged Performed By: #### L 500.2500, L100.0100 ####[facility] [address] [place], [address] NEUT% Normal 47-70 [facility] Comment on above: Result Comment: Canc elled via OM: Order cancelled - Patient discharged Performed By: #### L 500.2500, L100.0100 ####[facility] [address] [place], [address] PLT Normal 150-450 [facility] Comment on above: Result Comment: Canc elled via OM: Order cancelled - Patient discharged Performed By: #### L 500.2500, L100.0100 ####[facility] [address] [place], [address] RBC Normal 4.2-5.4 [facility] Comment on above: Result Comment: Canc elled via OM: Order cancelled - Patient discharged Performed By: #### L 500.2500, L100.0100 ####[facility] [address] [place], [address] RDW CV Normal 11.6-14.6 [facility] Comment on above: Result Comment: Canc elled via OM: Order cancelled - Patient discharged Performed By: #### L 500.2500, L100.0100 ####[facility] [address] [place], [address] RDW SD Normal 35.1-43.9 [facility] Comment on above: Result Comment: Canc elled via OM: Order cancelled - Patient discharged Performed By: #### L 500.2500, L100.0100 ####[facility] [address] [place], [address] WBC Normal 4.4-11.0 [facility] Comment on above: Result Comment: Canc elled via OM: Order cancelled - Patient discharged Performed By: #### L 500.2500, L100.0100 ####[facility] [address] [place], [address] Absolute Lymph 2.24 X10 3/uL Normal 0.83-4.51 [facility] Comment on above: Performed By: #### L 501.5200, L503.7505, L500.2500, L100.0100 ####[facility] [address] [place], [address] Absolute Neut 5.8 X10 3/uL Normal 2.0-7.7 [facility] Comment on above: Performed By: #### L 501.5200, L503.7505, L500.2500, L100.0100 ####[facility] [address] [place], [address] Basophils/100 WBC (Bld) 0.1 % Normal 0-1 [facility] Comment on above: Performed By: #### L 501.5200, L503.7505, L500.2500, L100.0100 ####[facility] [address] [place], [address] Eosinophils/100 WBC (Bld) 2.8 % Normal 0-5 [facility] Comment on above: Performed By: #### L 501.5200, L503.7505, L500.2500, L100.0100 ####[facility] [address] [place], [address] Erythrocyte distribution width (RBC) [Ratio] 15.9 % High 11.6-14.6 [facility] Comment on above: Performed By: #### L 501.5200, L503.7505, L500.2500, L100.0100 ####[facility] [address] [place], [address] Hematocrit (Bld) [Volume fraction] 37.9 % Normal 37-47 [facility] Comment on above: Performed By: #### L 501.5200, L503.7505, L500.2500, L100.0100 ####[facility] [address] [place], [address] Hemoglobin (Bld) [Mass/Vol] 11.8 g/dL Low 12.0-15.0 [facility] Comment on above: Performed By: #### L 501.5200, L503.7505, L500.2500, L100.0100 ####[facility] [address] [place], [address] IG% 0.300 Normal 0.0-0.9 [facility] Comment on above: Result Comment: IG% - Immature Granulocytes (promyelocytes, myelocytes andmetamyelocytes) > 1% indicates that a LEFT SHIFT is Present. Performed By: #### L 501.5200, L503.7505, L500.2500, L100.0100 ####[facility] [address] [place], [address] Lymphocytes/100 WBC (Bld) 25.1 % Normal 19-41 [facility] Comment on above: Performed By: #### L 501.5200, L503.7505, L500.2500, L100.0100 ####[facility] [address] [place], [address] MCH (RBC) [Entitic mass] 27.3 pg Normal 27.0-32.0 [facility] Comment on above: Performed By: #### L 501.5200, L503.7505, L500.2500, L100.0100 ####[facility] [address] [place], [address] MCHC (RBC) [Mass/Vol] 31.1 g/dL Low 32-36 [facility] Comment on above: Performed By: #### L 501.5200, L503.7505, L500.2500, L100.0100 ####[facility] [address] [place], [address] MCV (RBC) [Entitic vol] 87.5 fL Normal 81-99 [facility] Comment on above: Performed By: #### L 501.5200, L503.7505, L500.2500, L100.0100 ####[facility] [address] [place], [address] Monocytes/100 WBC (Bld) 6.7 % Normal 0-10 [facility] Comment on above: Performed By: #### L 501.5200, L503.7505, L500.2500, L100.0100 ####[facility] [address] [place], [address] Neutrophils/100 WBC (Bld) 65.0 % Normal 47-70 [facility] Comment on above: Performed By: #### L 501.5200, L503.7505, L500.2500, L100.0100 ####[facility] [address] [place], [address] Nucleated RBC (Bld) [#/Vol] 0 10*3/uL Normal 0-5 [facility] Comment on above: Performed By: #### L 501.5200, L503.7505, L500.2500, L100.0100 ####[facility] [address] [place], [address] Platelet mean volume (Bld) [Entitic vol] 10.8 fL Normal 6.2-12.0 [facility] Comment on above: Performed By: #### L 501.5200, L503.7505, L500.2500, L100.0100 ####[facility] [address] [place], [address] Platelets (Bld) [#/Vol] 247 10*3/uL Normal 150-450 [facility] Comment on above: Performed By: #### L 501.5200, L503.7505, L500.2500, L100.0100 ####[facility] [address] [place], [address] RBC (Bld) [#/Vol] 4.33 10*6/uL Normal 4.2-5.4 [facility] Comment on above: Performed By: #### L 501.5200, L503.7505, L500.2500, L100.0100 ####[facility] [address] [place], [address] RDW SD 51.0 fl High 35.1-43.9 [facility] Comment on above: Performed By: #### L 501.5200, L503.7505, L500.2500, L100.0100 ####[facility] [address] [place], [address] WBC (Bld) [#/Vol] 8.9 10*3/uL Normal 4.4-11.0 [facility] Comment on above: Performed By: #### L 501.5200, L503.7505, L500.2500, L100.0100 ####[facility] [address] [place], [address] Carbon dioxide, total [Moles /volume] in Central venous bloodOrdered By: Jg Bryan on 01-26-2025 CO2 [Moles/Vol] 27.1 mmol/L 21.0-32.0 [facility] Chest PA and Lateralon 01-26 Chest PA and Lateral Normal [facility] Chloride assayOrdered By: Matilde Bryan on 01-26-2025 Chloride [Moles/Vol] 104 mmol/L 98-108 [facility] Emergency Department Summary on 01-26-2025 Emergency Department Summary Normal [facility] Eosinophil percentageOrdered By: Jg Bryan on 01-26-2025 Eosinophils/100 WBC (Bld) 2.8 % 0-5 [facility] Erythrocyte distribution wid th ratioOrdered By: Jg Bryan on 01-26-2025 Erythrocyte distribution width (RBC) [Ratio] 15.9 % High 11.6-14.6 [facility] Erythrocyte distribution wid th standard deviationOrdered By: Jg Bryan on 01-26-2025 Erythrocyte distribution width (RBC) [Ratio] 51.0 fl High 35.1-43.9 [facility] Glomerular filtration rate ( GFR) estimation/1.73 sq m using serum, plasma, or whole bOrdered By: Jg Bryan on 01-26-2025 GFR/1.73 sq M.predicted among non-blacks MDRD (S/P/Bld) [Vol rate/Area] 47 mL/min/{1.73_m2} Low >60 [facility] Hematocrit Auto (Bld) [Volum e fraction]Ordered By: Jg Bryan on 01-26-2025 Hematocrit (Bld) [Volume fraction] 37.9 % 37-47 [facility] Hemoglobin measurementOrdere d By: Jg Bryan on 01-26-2025 Hemoglobin (Bld) [Mass/Vol] 11.8 g/dL Low 12.0-15.0 [facility] Immature granulocytes/100 WB C Auto (Bld)Ordered By: Jg Bryan on 01-26-2025 Immature granulocytes/100 WBC (Bld) 0.300 % 0.0-0.9 [facility] L503.7505on 01-26-2025 Natriuretic peptide B (Bld) [Mass/Vol] 3334 pg/mL High <=1800 [facility] Comment on above: Result Comment: Hear t Failure Unlikely: < 300 pg/mLHeart Failure Likely< 50 Years: > 450 pg/mL50-75 Years: > 900 pg/mL>75 Years: > 1800 pg/mL Performed By: #### L 501.5200, L503.7505, L500.2500, L100.0100 ####[facility] [address] [place], [address] MCV (mean corpuscular volume ) determinationOrdered By: Jg Bryan on 01-26-2025 MCV (RBC) [Entitic vol] 87.5 fL 81-99 [facility] Magnesiumon 01-26-2025 Magnesium [Mass/Vol] 2.7 mg/dL High 1.5-2.2 [facility] Comment on above: Performed By: #### L 501.5200, L503.6505, L500.2500, L100.0100 ####[facility] [address] [place], [place], [address] Magnesium measurement (mass/ volume)Ordered By: Jg Bryan on 01-26-2025 Magnesium (Unsp spec) [Mass/Vol] 2.7 mg/dL High 1.5-2.2 [facility] Mean corpuscular hemoglobin (MCH) determinationOrdered By: Jg Bryan on 01-26-2025 MCH (RBC) [Entitic mass] 27.3 pg 27.0-32.0 [facility] Monocyte percentageOrdered B y: Jg Bryan on 01-26-2025 Monocytes/100 WBC (Bld) 6.7 % 0-10 [facility] Natriuretic peptide.B prohor hayley N-Terminal [Mass/volume] in Serum or PlasmaOrdered By: Jg Bryan on 01-26-2025 Natriuretic peptide.B prohormone N-Terminal [Mass/Vol] 3334 pg/mL High <1800 [facility] Neutrophil percentageOrdered By: Jg Bryan on 01-26-2025 Neutrophils/100 WBC (Bld) 65.0 % 47-70 [facility] Platelet countOrdered By: Matilde Bryan on 01-26-2025 Platelets (Bld) [#/Vol] 247 10*3/uL 150-450 [facility] Potassium measurement (mass/ volume)Ordered By: Jg Bryan on 01-26-2025 Potassium (Unsp spec) [Mass/Vol] 4.1 mmol/L 3.3-5.1 [facility] RBC Auto (Bld) [#/Vol]Ordere d By: Jg Bryan on 01-26-2025 RBC (Bld) [#/Vol] 4.33 10*6/uL 4.2-5.4 [facility] Serum creatinine measurement (mass/volume)Ordered By: Jg Bryan on 01-26-2025 Creatinine [Mass/Vol] 1.16 mg/dL 0.70-1.20 [facility] Serum glucose measurement (m ass/volume)Ordered By: Jg Bryan on 01-26-2025 Glucose [Mass/Vol] 211 mg/dL High 70-99 [facility] Serum or plasma calcium melanie urement (mass/volume)Ordered By: Jg Bryan on 01-26-2025 Calcium [Mass/Vol] 10.2 mg/dL 7.6-11.0 [facility] Serum or plasma urea nitroge n measurement (mass/volume)Ordered By: Jg Bryan on 01-26-2025 Urea nitrogen [Mass/Vol] 35 mg/dL High - [facility] Sodium levelOrdered By: Cosme Bryan on 01-26-2025 Sodium [Moles/Vol] 141 mmol/L 133-145 [facility] White blood cell (WBC) count Ordered By: Jg Bryan on 01-26-2025 WBC (Bld) [#/Vol] 8.9 10*3/uL 4.4-11.0 [facility] Basic Metabolic Profile (BMP )on 01-25-2025 BUN Normal - [facility] Comment on above: Result Comment: Canc elled via OM: Order cancelled - Patient discharged Performed By: #### L 100.0100, L500.2500 ####[facility] [address] [place], [address] BUN/CRE Normal 10- [facility] Comment on above: Result Comment: Canc elled via OM: Order cancelled - Patient discharged Performed By: #### L 100.0100, L500.2500 ####[facility] [address] [place], [address] Calcium Normal 7.6-11.0 [facility] Comment on above: Result Comment: Canc elled via OM: Order cancelled - Patient discharged Performed By: #### L 100.0100, L500.2500 ####[facility] [address] [place], [address] CL Normal 98-108 [facility] Comment on above: Result Comment: Canc elled via OM: Order cancelled - Patient discharged Performed By: #### L 100.0100, L500.2500 ####[facility] [address] [place], [address] CO2 Normal 21.0-32.0 [facility] Comment on above: Result Comment: Canc elled via OM: Order cancelled - Patient discharged Performed By: #### L 100.0100, L500.2500 ####[facility] [address] [place], [address] CREAT,SERUM Normal 0.70-1.20 [facility] Comment on above: Result Comment: Canc elled via OM: Order cancelled - Patient discharged Performed By: #### L 100.0100, L500.2500 ####[facility] [address] [place], [address] eGFR Normal >60 [facility] Comment on above: Result Comment: Canc elled via OM: Order cancelled - Patient discharged Performed By: #### L 100.0100, L500.2500 ####[facility] [address] [place], [address] GAP Normal 5-15 [facility] Comment on above: Result Comment: Canc elled via OM: Order cancelled - Patient discharged Performed By: #### L 100.0100, L500.2500 ####[facility] [address] [place], [address] GLU Normal 70-99 [facility] Comment on above: Result Comment: Canc elled via OM: Order cancelled - Patient discharged Performed By: #### L 100.0100, L500.2500 ####[facility] [address] [place], [address] Potassium Normal 3.3-5.1 [facility] Comment on above: Result Comment: Canc elled via OM: Order cancelled - Patient discharged Performed By: #### L 100.0100, L500.2500 ####[facility] [address] [place], [address] Basic Metabolic Profile (BMP) Normal 133-145 [facility] Comment on above: Result Comment: Canc elled via OM: Order cancelled - Patient discharged Performed By: #### L 100.0100, L500.2500 ####[facility] [address] [place], [address] CBC W/Diff, Automatedon 05-2 Absolute Neut Normal 2.0-7.7 [facility] Comment on above: Result Comment: Canc elled via OM: Order cancelled - Patient discharged Performed By: #### L 100.0100, L500.2500 ####[facility] [address] [place], [address] HCT Normal 37-47 [facility] Comment on above: Result Comment: Canc elled via OM: Order cancelled - Patient discharged Performed By: #### L 100.0100, L500.2500 ####[facility] [address] [place], [address] HGB Normal 12.0-15.0 [facility] Comment on above: Result Comment: Canc elled via OM: Order cancelled - Patient discharged Performed By: #### L 100.0100, L500.2500 ####[facility] [address] [place], [address] MCH Normal 27.0-32.0 [facility] Comment on above: Result Comment: Canc elled via OM: Order cancelled - Patient discharged Performed By: #### L 100.0100, L500.2500 ####[facility] [address] [place], [address] MCHC Normal 32-36 [facility] Comment on above: Result Comment: Canc elled via OM: Order cancelled - Patient discharged Performed By: #### L 100.0100, L500.2500 ####[facility] [address] [place], [address] MCV Normal 81-99 [facility] Comment on above: Result Comment: Canc elled via OM: Order cancelled - Patient discharged Performed By: #### L 100.0100, L500.2500 ####[facility] [address] [place], [address] NEUT% Normal 47-70 [facility] Comment on above: Result Comment: Canc elled via OM: Order cancelled - Patient discharged Performed By: #### L 100.0100, L500.2500 ####[facility] [address] [place], [address] PLT Normal 150-450 [facility] Comment on above: Result Comment: Canc elled via OM: Order cancelled - Patient discharged Performed By: #### L 100.0100, L500.2500 ####[facility] [address] [place], [address] RBC Normal 4.2-5.4 [facility] Comment on above: Result Comment: Canc elled via OM: Order cancelled - Patient discharged Performed By: #### L 100.0100, L500.2500 ####[facility] [address] [place], [address] RDW CV Normal 11.6-14.6 [facility] Comment on above: Result Comment: Canc elled via OM: Order cancelled - Patient discharged Performed By: #### L 100.0100, L500.2500 ####[facility] [address] [place], [address] RDW SD Normal 35.1-43.9 [facility] Comment on above: Result Comment: Canc elled via OM: Order cancelled - Patient discharged Performed By: #### L 100.0100, L500.2500 ####[facility] [address] [place], [address] WBC Normal 4.4-11.0 [facility] Comment on above: Result Comment: Canc elled via OM: Order cancelled - Patient discharged Performed By: #### L 100.0100, L500.2500 ####[facility] [address] [place], [address] Culture, Blood (WB)on 2024 CUB Blood cultures x2, from two different sites No growth in 5 days. Normal [facility] Comment on above: Performed By: #### M 200.1000 ####[facility] [address] [place], [address] Performed By: #### M 200.1000, L503.6005 ####[facility] [address] [place], [address] Performed By: #### L 300.4310, L100.0100, L300.3900, L501.4021, L503.6005, L500.4050, M200.1000 ####[facility] [address] [place], [address] Absolute lymphocyte countOrd ered By: Melba Hartmann on 01-24-2025 Lymphocytes Auto (Unsp spec) [#/Vol] 2.19 10*3/uL 0.83-4.51 [facility] Anion gap in Serum or Plasma Ordered By: Melba Hartmann on 01-24-2025 Anion gap [Moles/Vol] 12 mmol/L 5-15 [facility] Automated lymphocyte count a s percentage of total leukocytesOrdered By: Melba Hartmann on 01-24-2025 Lymphocytes/100 WBC Auto (Unsp spec) 19.3 % 19-41 [facility] BUN/creatinine ratioOrdered By: Melba Hartmann on 01-24-2025 Urea nitrogen/Creatinine [Mass ratio] 35.2 mg/mg High 10-20 [facility] Basic Metabolic Profile (BMP )on 01-24-2025 BUN/CRE 35.2 RATIO High 10-20 [facility] Comment on above: Performed By: #### L 500.2500, L100.0100 ####[facility] [address] [place], [address] Calcium [Mass/Vol] 10.1 mg/dL Normal 7.6-11.0 [facility] Comment on above: Performed By: #### L 500.2500, L100.0100 ####[facility] [address] [place], [address] Chloride [Moles/Vol] 102 mmol/L Normal 98-108 [facility] Comment on above: Performed By: #### L 500.2500, L100.0100 ####[facility] [address] [place], [address] CO2 [Moles/Vol] 23.7 mmol/L Normal 21.0-32.0 [facility] Comment on above: Performed By: #### L 500.2500, L100.0100 ####[facility] [address] [place], [address] Creatinine [Mass/Vol] 1.31 mg/dL High 0.70-1.20 [facility] Comment on above: Performed By: #### L 500.2500, L100.0100 ####[facility] [address] [place], [address] ECRCL 33.41 ml/min Low 50-250 [facility] Comment on above: Performed By: #### L 500.2500, L100.0100 ####[facility] [address] [place], [address] GAP 12 Normal 5-15 [facility] Comment on above: Performed By: #### L 500.2500, L100.0100 ####[facility] [address] [place], [address] GFR/1.73 sq M.predicted among non-blacks MDRD (S/P/Bld) [Vol rate/Area] 41 mL/min/{1.73_m2} Low >60 [facility] Comment on above: Result Comment: mL/m in/1.73m2 CKD-EPI Creatinine Equation (2020) Performed By: #### L 500.2500, L100.0100 ####[facility] [address] [place], [address] Glucose [Mass/Vol] 133 mg/dL High 70-99 [facility] Comment on above: Performed By: #### L 500.2500, L100.0100 ####[facility] [address] [place], [address] Potassium [Moles/Vol] 3.5 mmol/L Normal 3.3-5.1 [facility] Comment on above: Performed By: #### L 500.2500, L100.0100 ####[facility] [address] [place], [address] Sodium [Moles/Vol] 138 mmol/L Normal 133-145 [facility] Comment on above: Performed By: #### L 500.2500, L100.0100 ####[facility] [address] [place], [address] Urea nitrogen [Mass/Vol] 46 mg/dL High 4-19 [facility] Comment on above: Performed By: #### L 500.2500, L100.0100 ####[facility] [address] [place], [address] Basophil percentageOrdered B y: Melba Hartmann on 01-24-2025 Basophils/100 WBC (Bld) 0.2 % 0-1 [facility] Bedside Glucoseon 01-24-2025 FINGERSTICK GLU 167 mg/dL High 74-106 [facility] Comment on above: Result Comment: KATARINA GEMENT OF PATIENT CARE PER NURSING PROTOCOL Performed By: #### L 501.080 ####[facility] [address] [place], [address] FINGERSTICK GLU 143 mg/dL High 74-106 [facility] Comment on above: Result Comment: KATARINA GEMENT OF PATIENT CARE PER NURSING PROTOCOL Performed By: #### L 501.080 ####[facility] [address] [place], [address] CBC W/Diff, Automatedon 05-2 7-2024 Absolute Lymph 2.19 X10 3/uL Normal 0.83-4.51 [facility] Comment on above: Performed By: #### L 500.2500, L100.0100 ####[facility] [address] [place], [address] Absolute Neut 8.2 X10 3/uL High 2.0-7.7 [facility] Comment on above: Performed By: #### L 500.2500, L100.0100 ####[facility] [address] [place], [address] Basophils/100 WBC (Bld) 0.2 % Normal 0-1 [facility] Comment on above: Performed By: #### L 500.2500, L100.0100 ####[facility] [address] [place], [address] Eosinophils/100 WBC (Bld) 0.2 % Normal 0-5 [facility] Comment on above: Performed By: #### L 500.2500, L100.0100 ####[facility] [address] [place], [address] Erythrocyte distribution width (RBC) [Ratio] 15.8 % High 11.6-14.6 [facility] Comment on above: Performed By: #### L 500.2500, L100.0100 ####[facility] [address] [place], [address] Hematocrit (Bld) [Volume fraction] 40.7 % Normal 37-47 [facility] Comment on above: Performed By: #### L 500.2500, L100.0100 ####[facility] [address] [place], [address] Hemoglobin (Bld) [Mass/Vol] 12.7 g/dL Normal 12.0-15.0 [facility] Comment on above: Performed By: #### L 500.2500, L100.0100 ####[facility] [address] [place], [address] IG% 0.400 Normal 0.0-0.9 [facility] Comment on above: Result Comment: IG% - Immature Granulocytes (promyelocytes, myelocytes andmetamyelocytes) > 1% indicates that a LEFT SHIFT is Present. Performed By: #### L 500.2500, L100.0100 ####[facility] [address] [place], [address] Lymphocytes/100 WBC (Bld) 19.3 % Normal 19-41 [facility] Comment on above: Performed By: #### L 500.2500, L100.0100 ####[facility] [address] [place], [address] MCH (RBC) [Entitic mass] 27.4 pg Normal 27.0-32.0 [facility] Comment on above: Performed By: #### L 500.2500, L100.0100 ####[facility] [address] [place], [address] MCHC (RBC) [Mass/Vol] 31.2 g/dL Low 32-36 [facility] Comment on above: Performed By: #### L 500.2500, L100.0100 ####[facility] [address] [place], [address] MCV (RBC) [Entitic vol] 87.7 fL Normal 81-99 [facility] Comment on above: Performed By: #### L 500.2500, L100.0100 ####[facility] [address] [place], [address] Monocytes/100 WBC (Bld) 7.4 % Normal 0-10 [facility] Comment on above: Performed By: #### L 500.2500, L100.0100 ####[facility] [address] [place], [address] Neutrophils/100 WBC (Bld) 72.5 % High 47-70 [facility] Comment on above: Performed By: #### L 500.2500, L100.0100 ####[facility] [address] [place], [address] Nucleated RBC (Bld) [#/Vol] 0 10*3/uL Normal 0-5 [facility] Comment on above: Performed By: #### L 500.2500, L100.0100 ####[facility] [address] [place], [address] Platelet mean volume (Bld) [Entitic vol] 10.9 fL Normal 6.2-12.0 [facility] Comment on above: Performed By: #### L 500.2500, L100.0100 ####[facility] [address] [place], [address] Platelets (Bld) [#/Vol] 297 10*3/uL Normal 150-450 [facility] Comment on above: Performed By: #### L 500.2500, L100.0100 ####[facility] [address] [place], [address] RBC (Bld) [#/Vol] 4.64 10*6/uL Normal 4.2-5.4 [facility] Comment on above: Performed By: #### L 500.2500, L100.0100 ####[facility] [address] [place], [address] RDW SD 50.9 fl High 35.1-43.9 [facility] Comment on above: Performed By: #### L 500.2500, L100.0100 ####[facility] [address] [place], [address] WBC (Bld) [#/Vol] 11.3 10*3/uL High 4.4-11.0 [facility] Comment on above: Performed By: #### L 500.2500, L100.0100 ####[facility] [address] [place], [address] Carbon dioxide, total [Moles /volume] in Central venous bloodOrdered By: Melba Hartmann on 01-24-2025 CO2 [Moles/Vol] 23.7 mmol/L 21.0-32.0 [facility] Chloride assayOrdered By: Ewelina Hartmann on 01-24-2025 Chloride [Moles/Vol] 102 mmol/L 98-108 [facility] Discharge Instructionon 12-30 Discharge Instruction Normal [facility] Electrocardiogram reportOrde red By: Marcelina Soto on 01-24-2025 EKG study [facility] Work Phone: Eosinophil percentageOrdered By: Melba Hartmann on 01-24-2025 Eosinophils/100 WBC (Bld) 0.2 % 0-5 [facility] Erythrocyte distribution wid th ratioOrdered By: Melba Hartmann on 01-24-2025 Erythrocyte distribution width (RBC) [Ratio] 15.8 % High 11.6-14.6 [facility] Erythrocyte distribution wid th standard deviationOrdered By: Melba Hartmann on 01-24-2025 Erythrocyte distribution width (RBC) [Ratio] 50.9 fl High 35.1-43.9 [facility] Glomerular filtration rate ( GFR) estimation/1.73 sq m using serum, plasma, or whole bOrdered By: Melba Hartmann on 01-24-2025 GFR/1.73 sq M.predicted among non-blacks MDRD (S/P/Bld) [Vol rate/Area] 41 mL/min/{1.73_m2} Low >60 [facility] de[facility]dered By: Melba Hartmann on 01-24-2025 Glucose [Mass/Vol] 167 mg/dL High 74-106 [facility] Hematocrit Auto (Bld) [Volum e fraction]Ordered By: Melba Hartmann on 01-24-2025 Hematocrit (Bld) [Volume fraction] 40.7 % 37-47 [facility] Hemoglobin measurementOrdere d By: Melba Hartmann on 01-24-2025 Hemoglobin (Bld) [Mass/Vol] 12.7 g/dL 12.0-15.0 [facility] Immature granulocytes/100 WB C Auto (Bld)Ordered By: Melba Hartmann on 01-24-2025 Immature granulocytes/100 WBC (Bld) 0.400 % 0.0-0.9 [facility] MCV (mean corpuscular volume ) determinationOrdered By: Melba Hartmann 01-24-2025 MCV (RBC) [Entitic vol] 87.7 fL 81-99 [facility] Mean corpuscular hemoglobin (MCH) determinationOrdered By: Melba Hartmann 01-24-2025 MCH (RBC) [Entitic mass] 27.4 pg 27.0-32.0 [facility] Monocyte percentageOrdered B y: Melba Hartmann on 01-24-2025 Monocytes/100 WBC (Bld) 7.4 % 0-10 [facility] Neutrophil percentageOrdered By: Melba Hartmann on 01-24-2025 Neutrophils/100 WBC (Bld) 72.5 % High 47-70 [facility] Platelet countOrdered By: Na ewelina Hartmann on 01-24-2025 Platelets (Bld) [#/Vol] 297 10*3/uL 150-450 [facility] Potassium measurement (mass/ volume)Ordered By: Melba Hartmann on 01-24-2025 Potassium (Unsp spec) [Mass/Vol] 3.5 mmol/L 3.3-5.1 [facility] RBC Auto (Bld) [#/Vol]Ordere d By: Melba Hartmann on 01-24-2025 RBC (Bld) [#/Vol] 4.64 10*6/uL 4.2-5.4 [facility] Serum creatinine measurement (mass/volume)Ordered By: Melba Hartmann on 01-24-2025 Creatinine [Mass/Vol] 1.31 mg/dL High 0.70-1.20 [facility] Serum glucose measurement (m ass/volume)Ordered By: Melba Elizondojanene on 01-24-2025 Glucose [Mass/Vol] 133 mg/dL High 70-99 [facility] Serum or plasma calcium melanie urement (mass/volume)Ordered By: Melba Elizondojanene on 01-24-2025 Calcium [Mass/Vol] 10.1 mg/dL 7.6-11.0 [facility] Serum or plasma urea nitroge n measurement (mass/volume)Ordered By: Melba Elizondojanene on 01-24-2025 Urea nitrogen [Mass/Vol] 46 mg/dL High 4-19 [facility] Sodium levelOrdered By: Melbanereida Hartmann on 01-24-2025 Sodium [Moles/Vol] 138 mmol/L 133-145 [facility] White blood cell (WBC) count Ordered By: Melba Elizondojanene on 01-24-2025 WBC (Bld) [#/Vol] 11.3 10*3/uL High 4.4-11.0 [facility] Basic Metabolic Profile (BMP )on 01-23-2025 BUN/CRE 33.0 RATIO High 10-20 [facility] Comment on above: Performed By: #### L 100.0100, L500.2500 ####[facility] [address] [place], [address] Calcium [Mass/Vol] 10.8 mg/dL Normal 7.6-11.0 [facility] Comment on above: Performed By: #### L 100.0100, L500.2500 ####[facility] [address] [place], [address] Chloride [Moles/Vol] 98 mmol/L Normal 98-108 [facility] Comment on above: Performed By: #### L 100.0100, L500.2500 ####[facility] [address] [place], [address] CO2 [Moles/Vol] 25.4 mmol/L Normal 21.0-32.0 [facility] Comment on above: Performed By: #### L 100.0100, L500.2500 ####[facility] [address] [place], [address] Creatinine [Mass/Vol] 1.32 mg/dL High 0.70-1.20 [facility] Comment on above: Performed By: #### L 100.0100, L500.2500 ####[facility] [address] [place], [address] ECRCL 32.84 ml/min Low 50-250 [facility] Comment on above: Performed By: #### L 100.0100, L500.2500 ####[facility] [address] [place], [address] GAP 12 Normal 5-15 [facility] Comment on above: Performed By: #### L 100.0100, L500.2500 ####[facility] [address] [place], [address] GFR/1.73 sq M.predicted among non-blacks MDRD (S/P/Bld) [Vol rate/Area] 41 mL/min/{1.73_m2} Low >60 [facility] Comment on above: Result Comment: mL/m in/1.73m2 CKD-EPI Creatinine Equation (2020) Performed By: #### L 100.0100, L500.2500 ####[facility] [address] [place], [address] Glucose [Mass/Vol] 200 mg/dL High 70-99 [facility] Comment on above: Performed By: #### L 100.0100, L500.2500 ####[facility] [address] [place], [address] Potassium [Moles/Vol] 5.2 mmol/L High 3.3-5.1 [facility] Comment on above: Result Comment: Hemo lysis present, Results??could be affected.?? Performed By: #### L 100.0100, L500.2500 ####[facility] [address] [place], [address] Sodium [Moles/Vol] 135 mmol/L Normal 133-145 [facility] Comment on above: Performed By: #### L 100.0100, L500.2500 ####[facility] [address] [place], [address] Urea nitrogen [Mass/Vol] 44 mg/dL High 4-19 [facility] Comment on above: Performed By: #### L 100.0100, L500.2500 ####[facility] [address] [place], [address] Bedside Glucoseon 01-23-2025 FINGERSTICK GLU 294 mg/dL High 74-106 [facility] Comment on above: Result Comment: KATARINA GEMENT OF PATIENT CARE PER NURSING PROTOCOL Performed By: #### L 501.080 ####[facility] [address] [place], [address] FINGERSTICK GLU 314 mg/dL High 74-106 [facility] Comment on above: Result Comment: KATARINA GEMENT OF PATIENT CARE PER NURSING PROTOCOL Performed By: #### L 501.080 ####[facility] [address] [place], [address] FINGERSTICK GLU 291 mg/dL High 74-106 [facility] Comment on above: Result Comment: KATARINA GEMENT OF PATIENT CARE PER NURSING PROTOCOL Performed By: #### L 501.080 ####[facility] [address] [place], [address] FINGERSTICK GLU 214 mg/dL High 74-106 [facility] Comment on above: Result Comment: KATARINA GARY OF PATIENT CARE PER NURSING PROTOCOL Performed By: #### L 501.080 ####[facility] [address] [place], [address] CBC W/Diff, Automatedon 05-2 Absolute Lymph 0.74 X10 3/uL Low 0.83-4.51 [facility] Comment on above: Performed By: #### L 100.0100, L500.2500 ####[facility] [address] [place], [address] Absolute Neut 10.9 X10 3/uL High 2.0-7.7 [facility] Comment on above: Performed By: #### L 100.0100, L500.2500 ####[facility] [address] [place], [address] Basophils/100 WBC (Bld) 0.1 % Normal 0-1 [facility] Comment on above: Performed By: #### L 100.0100, L500.2500 ####[facility] [address] [place], [address] Eosinophils/100 WBC (Bld) 0.0 % Normal 0-5 [facility] Comment on above: Performed By: #### L 100.0100, L500.2500 ####[facility] [address] [place], [address] Erythrocyte distribution width (RBC) [Ratio] 15.8 % High 11.6-14.6 [facility] Comment on above: Performed By: #### L 100.0100, L500.2500 ####[facility] [address] [place], [address] Hematocrit (Bld) [Volume fraction] 41.8 % Normal 37-47 [facility] Comment on above: Performed By: #### L 100.0100, L500.2500 ####[facility] [address] [place], [address] Hemoglobin (Bld) [Mass/Vol] 13.1 g/dL Normal 12.0-15.0 [facility] Comment on above: Performed By: #### L 100.0100, L500.2500 ####[facility] [address] [place], [address] IG% 0.200 Normal 0.0-0.9 [facility] Comment on above: Result Comment: IG% - Immature Granulocytes (promyelocytes, myelocytes andmetamyelocytes) > 1% indicates that a LEFT SHIFT is Present. Performed By: #### L 100.0100, L500.2500 ####[facility] [address] [place], [address] Lymphocytes/100 WBC (Bld) 6.2 % Low 19-41 [facility] Comment on above: Performed By: #### L 100.0100, L500.2500 ####[facility] [address] [place], [address] MCH (RBC) [Entitic mass] 27.3 pg Normal 27.0-32.0 [facility] Comment on above: Performed By: #### L 100.0100, L500.2500 ####[facility] [address] [place], [address] MCHC (RBC) [Mass/Vol] 31.3 g/dL Low 32-36 [facility] Comment on above: Performed By: #### L 100.0100, L500.2500 ####[facility] [address] [place], [address] MCV (RBC) [Entitic vol] 87.1 fL Normal 81-99 [facility] Comment on above: Performed By: #### L 100.0100, L500.2500 ####[facility] [address] [place], [address] Monocytes/100 WBC (Bld) 2.7 % Normal 0-10 [facility] Comment on above: Performed By: #### L 100.0100, L500.2500 ####[facility] [address] [place], [address] Neutrophils/100 WBC (Bld) 90.8 % High 47-70 [facility] Comment on above: Performed By: #### L 100.0100, L500.2500 ####[facility] [address] [place], [address] Nucleated RBC (Bld) [#/Vol] 0 10*3/uL Normal 0-5 [facility] Comment on above: Performed By: #### L 100.0100, L500.2500 ####[facility] [address] [place], [address] Platelet mean volume (Bld) [Entitic vol] 11.6 fL Normal 6.2-12.0 [facility] Comment on above: Performed By: #### L 100.0100, L500.2500 ####[facility] [address] [place], [address] Platelets (Bld) [#/Vol] 322 10*3/uL Normal 150-450 [facility] Comment on above: Performed By: #### L 100.0100, L500.2500 ####[facility] [address] [place], [address] RBC (Bld) [#/Vol] 4.80 10*6/uL Normal 4.2-5.4 [facility] Comment on above: Performed By: #### L 100.0100, L500.2500 ####[facility] [address] [place], [address] RDW SD 50.2 fl High 35.1-43.9 [facility] Comment on above: Performed By: #### L 100.0100, L500.2500 ####[facility] [address] [place], [address] WBC (Bld) [#/Vol] 12.0 10*3/uL High 4.4-11.0 [facility] Comment on above: Performed By: #### L 100.0100, L500.2500 ####[facility] [address] [place], [address] Basic Metabolic Profile (BMP )on 01-22-2025 BUN/CRE 29.2 RATIO High 10-20 [facility] Comment on above: Performed By: #### L 500.2500, L100.0100 ####[facility] [address] [place], [address] Calcium [Mass/Vol] 10.2 mg/dL Normal 7.6-11.0 [facility] Comment on above: Performed By: #### L 500.2500, L100.0100 ####[facility] [address] [place], [address] Chloride [Moles/Vol] 99 mmol/L Normal 98-108 [facility] Comment on above: Performed By: #### L 500.2500, L100.0100 ####[facility] [address] [place], [address] CO2 [Moles/Vol] 27.0 mmol/L Normal 21.0-32.0 [facility] Comment on above: Performed By: #### L 500.2500, L100.0100 ####[facility] [address] [place], [address] Creatinine [Mass/Vol] 1.07 mg/dL Normal 0.70-1.20 [facility] Comment on above: Performed By: #### L 500.2500, L100.0100 ####[facility] [address] [place], [address] ECRCL 40.54 ml/min Low 50-250 [facility] Comment on above: Performed By: #### L 500.2500, L100.0100 ####[facility] [address] [place], [address] GAP 10 Normal 5-15 [facility] Comment on above: Performed By: #### L 500.2500, L100.0100 ####[facility] [address] [place], [address] GFR/1.73 sq M.predicted among non-blacks MDRD (S/P/Bld) [Vol rate/Area] 52 mL/min/{1.73_m2} Low >60 [facility] Comment on above: Result Comment: mL/m in/1.73m2 CKD-EPI Creatinine Equation (2020) Performed By: #### L 500.2500, L100.0100 ####[facility] [address] [place], [address] Glucose [Mass/Vol] 160 mg/dL High 70-99 [facility] Comment on above: Performed By: #### L 500.2500, L100.0100 ####[facility] [address] [place], [address] Potassium [Moles/Vol] 4.8 mmol/L Normal 3.3-5.1 [facility] Comment on above: Performed By: #### L 500.2500, L100.0100 ####[facility] [address] [place], [address] Sodium [Moles/Vol] 136 mmol/L Normal 133-145 [facility] Comment on above: Performed By: #### L 500.2500, L100.0100 ####[facility] [address] [place], [address] Urea nitrogen [Mass/Vol] 31 mg/dL High 4-19 [facility] Comment on above: Performed By: #### L 500.2500, L100.0100 ####[facility] [address] [place], [address] Bedside Glucoseon 01-22-2025 FINGERSTICK GLU 310 mg/dL High 74-106 [facility] Comment on above: Result Comment: KATARINA GEMENT OF PATIENT CARE PER NURSING PROTOCOL Performed By: #### L 501.080 ####[facility] [address] [place], [address] FINGERSTICK GLU 269 mg/dL High 74-106 [facility] Comment on above: Result Comment: KATARINA GEMENT OF PATIENT CARE PER NURSING PROTOCOL Performed By: #### L 501.080 ####[facility] [address] [place], [address] FINGERSTICK GLU 232 mg/dL High -106 [facility] Comment on above: Result Comment: KATARINA GEMENT OF PATIENT CARE PER NURSING PROTOCOL Performed By: #### L 501.080 ####[facility] [address] [place], [address] FINGERSTICK GLU 183 mg/dL High 74-106 [facility] Comment on above: Result Comment: KATARINA GEMENT OF PATIENT CARE PER NURSING PROTOCOL Performed By: #### L 501.080 ####[facility] [address] [place], [address] CBC W/Diff, Automatedon 05- Absolute Lymph 0.73 X10 3/uL Low 0.83-4.51 [facility] Comment on above: Performed By: #### L 500.2500, L100.0100 ####[facility] [address] [place], [address] Absolute Neut 11.7 X10 3/uL High 2.0-7.7 [facility] Comment on above: Performed By: #### L 500.2500, L100.0100 ####[facility] [address] [place], [address] Basophils/100 WBC (Bld) 0.0 % Normal 0-1 [facility] Comment on above: Performed By: #### L 500.2500, L100.0100 ####[facility] [address] [place], [address] Eosinophils/100 WBC (Bld) 0.0 % Normal 0-5 [facility] Comment on above: Performed By: #### L 500.2500, L100.0100 ####[facility] [address] [place], [address] Erythrocyte distribution width (RBC) [Ratio] 15.9 % High 11.6-14.6 [facility] Comment on above: Performed By: #### L 500.2500, L100.0100 ####[facility] [address] [place], [address] Hematocrit (Bld) [Volume fraction] 35.6 % Low 37-47 [facility] Comment on above: Performed By: #### L 500.2500, L100.0100 ####[facility] [address] [place], [address] Hemoglobin (Bld) [Mass/Vol] 11.1 g/dL Low 12.0-15.0 [facility] Comment on above: Performed By: #### L 500.2500, L100.0100 ####[facility] [address] [place], [address] IG% 0.500 Normal 0.0-0.9 [facility] Comment on above: Result Comment: IG% - Immature Granulocytes (promyelocytes, myelocytes andmetamyelocytes) > 1% indicates that a LEFT SHIFT is Present. Performed By: #### L 500.2500, L100.0100 ####[facility] [address] [place], [address] Lymphocytes/100 WBC (Bld) 5.7 % Low 19-41 [facility] Comment on above: Performed By: #### L 500.2500, L100.0100 ####[facility] [address] [place], [address] MCH (RBC) [Entitic mass] 27.3 pg Normal 27.0-32.0 [facility] Comment on above: Performed By: #### L 500.2500, L100.0100 ####[facility] [address] [place], [address] MCHC (RBC) [Mass/Vol] 31.2 g/dL Low 32-36 [facility] Comment on above: Performed By: #### L 500.2500, L100.0100 ####[facility] [address] [place], [address] MCV (RBC) [Entitic vol] 87.7 fL Normal 81-99 [facility] Comment on above: Performed By: #### L 500.2500, L100.0100 ####[facility] [address] [place], [address] Monocytes/100 WBC (Bld) 2.4 % Normal 0-10 [facility] Comment on above: Performed By: #### L 500.2500, L100.0100 ####[facility] [address] [place], [address] Neutrophils/100 WBC (Bld) 91.4 % High 47-70 [facility] Comment on above: Performed By: #### L 500.2500, L100.0100 ####[facility] [address] [place], [address] Nucleated RBC (Bld) [#/Vol] 0 10*3/uL Normal 0-5 [facility] Comment on above: Performed By: #### L 500.2500, L100.0100 ####[facility] [address] [place], [address] Platelet mean volume (Bld) [Entitic vol] 11.1 fL Normal 6.2-12.0 [facility] Comment on above: Performed By: #### L 500.2500, L100.0100 ####[facility] [address] [place], [address] Platelets (Bld) [#/Vol] 281 10*3/uL Normal 150-450 [facility] Comment on above: Performed By: #### L 500.2500, L100.0100 ####[facility] [address] [place], [address] RBC (Bld) [#/Vol] 4.06 10*6/uL Low 4.2-5.4 [facility] Comment on above: Performed By: #### L 500.2500, L100.0100 ####[facility] [address] [place], [address] RDW SD 51.3 fl High 35.1-43.9 [facility] Comment on above: Performed By: #### L 500.2500, L100.0100 ####[facility] [address] [place], [address] WBC (Bld) [#/Vol] 12.8 10*3/uL High 4.4-11.0 [facility] Comment on above: Performed By: #### L 500.2500, L100.0100 ####[facility] [address] [place], [address] Urine Cultureon 01-22-2025 URC Normal [facility] Comment on above: Performed By: #### M 100.2200 ####[facility] [address] [place], [address] Basic Metabolic Profile (BMP )on 01-21-2025 BUN/CRE 19.6 RATIO Normal 10-20 [facility] Comment on above: Performed By: #### L 503.7505, L500.2500 ####[facility] [address] [place], [address] Calcium [Mass/Vol] 9.8 mg/dL Normal 7.6-11.0 [facility] Comment on above: Performed By: #### L 503.7505, L500.2500 ####[facility] [address] [place], [address] Chloride [Moles/Vol] 99 mmol/L Normal 98-108 [facility] Comment on above: Performed By: #### L 503.7505, L500.2500 ####[facility] [address] [place], [address] CO2 [Moles/Vol] 24.3 mmol/L Normal 21.0-32.0 [facility] Comment on above: Performed By: #### L 503.7505, L500.2500 ####[facility] [address] [place], [address] Creatinine [Mass/Vol] 1.19 mg/dL Normal 0.70-1.20 [facility] Comment on above: Performed By: #### L 503.7505, L500.2500 ####[facility] [address] [place], [address] ECRCL 36.45 ml/min Low 50-250 [facility] Comment on above: Performed By: #### L 503.7505, L500.2500 ####[facility] [address] [place], [address] GAP 14 Normal 5-15 [facility] Comment on above: Performed By: #### L 503.7505, L500.2500 ####[facility] [address] [place], [address] GFR/1.73 sq M.predicted among non-blacks MDRD (S/P/Bld) [Vol rate/Area] 46 mL/min/{1.73_m2} Low >60 [facility] Comment on above: Result Comment: mL/m in/1.73m2 CKD-EPI Creatinine Equation (2020) Performed By: #### L 503.7505, L500.2500 ####[facility] [address] [place], [address] Glucose [Mass/Vol] 208 mg/dL High 70-99 [facility] Comment on above: Performed By: #### L 503.7505, L500.2500 ####[facility] [address] [place], [address] Potassium [Moles/Vol] 4.0 mmol/L Normal 3.3-5.1 [facility] Comment on above: Performed By: #### L 503.7505, L500.2500 ####[facility] [address] [place], [address] Sodium [Moles/Vol] 138 mmol/L Normal 133-145 [facility] Comment on above: Performed By: #### L 503.7505, L500.2500 ####[facility] [address] [place], [address] Urea nitrogen [Mass/Vol] 23 mg/dL High 4-19 [facility] Comment on above: Performed By: #### L 503.7505, L500.2500 ####[facility] [address] [place], [address] Bedside Glucoseon 01-21-2025 FINGERSTICK GLU 271 mg/dL High 74-106 [facility] Comment on above: Result Comment: KATARINA GARY OF PATIENT CARE PER NURSING PROTOCOL Performed By: #### L 501.080 ####[facility] [address] [place], [address] FINGERSTICK GLU 254 mg/dL High 74-106 [facility] Comment on above: Result Comment: KATARINA GEMENT OF PATIENT CARE PER NURSING PROTOCOL Performed By: #### L 501.080 ####[facility] [address] [place], [address] FINGERSTICK GLU 323 mg/dL High 74-106 [facility] Comment on above: Result Comment: KATARINA GEMENT OF PATIENT CARE PER NURSING PROTOCOL Performed By: #### L 501.080 ####[facility] [address] [place], [address] FINGERSTICK GLU 202 mg/dL High 74-106 [facility] Comment on above: Result Comment: KATARINA GEMENT OF PATIENT CARE PER NURSING PROTOCOL Performed By: #### L 501.080 ####[facility] [address] [place], [address] CBC W/Diff, Automatedon 05-2 4-2024 Absolute Lymph 0.79 X10 3/uL Low 0.83-4.51 [facility] Comment on above: Performed By: #### L 100.0100 ####[facility] [address] [place], [address] Absolute Neut 9.1 X10 3/uL High 2.0-7.7 [facility] Comment on above: Performed By: #### L 100.0100 ####[facility] [address] [place], [address] Basophils/100 WBC (Bld) 0.0 % Normal 0-1 [facility] Comment on above: Performed By: #### L 100.0100 ####[facility] [address] [place], [address] Eosinophils/100 WBC (Bld) 0.0 % Normal 0-5 [facility] Comment on above: Performed By: #### L 100.0100 ####[facility] [address] [place], [address] Erythrocyte distribution width (RBC) [Ratio] 16.0 % High 11.6-14.6 [facility] Comment on above: Performed By: #### L 100.0100 ####[facility] [address] [place], [address] Hematocrit (Bld) [Volume fraction] 35.0 % Low 37-47 [facility] Comment on above: Performed By: #### L 100.0100 ####[facility] [address] [place], [address] Hemoglobin (Bld) [Mass/Vol] 10.8 g/dL Low 12.0-15.0 [facility] Comment on above: Performed By: #### L 100.0100 ####[facility] [address] [place], [address] IG% 0.400 Normal 0.0-0.9 [facility] Comment on above: Result Comment: IG% - Immature Granulocytes (promyelocytes, myelocytes andmetamyelocytes) > 1% indicates that a LEFT SHIFT is Present. Performed By: #### L 100.0100 ####[facility] [address] [place], [address] Lymphocytes/100 WBC (Bld) 7.7 % Low 19-41 [facility] Comment on above: Performed By: #### L 100.0100 ####[facility] [address] [place], [address] MCH (RBC) [Entitic mass] 27.4 pg Normal 27.0-32.0 [facility] Comment on above: Performed By: #### L 100.0100 ####[facility] [address] [place], [address] MCHC (RBC) [Mass/Vol] 30.9 g/dL Low 32-36 [facility] Comment on above: Performed By: #### L 100.0100 ####[facility] [address] [place], [address] MCV (RBC) [Entitic vol] 88.8 fL Normal 81-99 [facility] Comment on above: Performed By: #### L 100.0100 ####[facility] [address] [place], [address] Monocytes/100 WBC (Bld) 3.5 % Normal 0-10 [facility] Comment on above: Performed By: #### L 100.0100 ####[facility] [address] [place], [address] Neutrophils/100 WBC (Bld) 88.4 % High 47-70 [facility] Comment on above: Performed By: #### L 100.0100 ####[facility] [address] [place], [address] Nucleated RBC (Bld) [#/Vol] 0 10*3/uL Normal 0-5 [facility] Comment on above: Performed By: #### L 100.0100 ####[facility] [address] [place], [address] Platelet mean volume (Bld) [Entitic vol] 11.0 fL Normal 6.2-12.0 [facility] Comment on above: Performed By: #### L 100.0100 ####[facility] [address] [place], [address] Platelets (Bld) [#/Vol] 245 10*3/uL Normal 150-450 [facility] Comment on above: Performed By: #### L 100.0100 ####[facility] [address] [place], [address] RBC (Bld) [#/Vol] 3.94 10*6/uL Low 4.2-5.4 [facility] Comment on above: Performed By: #### L 100.0100 ####[facility] [address] [place], [address] RDW SD 51.8 fl High 35.1-43.9 [facility] Comment on above: Performed By: #### L 100.0100 ####[facility] [address] [place], [address] WBC (Bld) [#/Vol] 10.3 10*3/uL Normal 4.4-11.0 [facility] Comment on above: Performed By: #### L 100.0100 ####[facility] [address] [place], [address] Chest 1 View (Portable)on Chest 1 View (Portable) Normal [facility] L503.7505on 01-21-2025 Natriuretic peptide B (Bld) [Mass/Vol] 43533 pg/mL High <=1800 [facility] Comment on above: Result Comment: Hear t Failure Unlikely: < 300 pg/mLHeart Failure Likely< 50 Years: > 450 pg/mL50-75 Years: > 900 pg/mL>75 Years: > 1800 pg/mL Performed By: #### L 503.7505, L500.2500 ####[facility] [address] [place], [address] Natriuretic peptide.B prohor hayley N-Terminal [Mass/volume] in Serum or PlasmaOrdered By: Sandeep Marie on 01-21-2025 Natriuretic peptide.B prohormone N-Terminal [Mass/Vol] 06361 pg/mL High <1800 [facility] 12 Lead EKGon 01-20-2025 12 Lead EKG Normal [facility] Activated partial thrombopla stin time (aPTT) in platelet poor plasma by coagulation aOrdered By: Jeevan Yoder on 01-20-2025 aPTT Coag (PPP) [Time] 26.9 s 24.1-36.2 [facility] Assessment of wrist artery p atency prior to arterial punctureOrdered By: Lucio Borden on 01-20-2025 Arterial patency Wrist artery --pre arterial puncture Positive [facility] Bedside Glucoseon 01-20-2025 FINGERSTICK GLU 265 mg/dL High 74-106 [facility] Comment on above: Result Comment: KATARINA GEMENT OF PATIENT CARE PER NURSING PROTOCOL Performed By: #### L 501.080 ####[facility] [address] [place], [address] FINGERSTICK GLU 389 mg/dL [address] Comment on above: Result Comment: KATARINA GEMENT OF PATIENT CARE PER NURSING PROTOCOL Performed By: #### L 501.080 ####[facility] [address] [place], [address] FINGERSTICK GLU 361 mg/dL High [address] [place] [address] Comment on above: Result Comment: KATARINA GEMENT OF PATIENT CARE PER NURSING PROTOCOL Performed By: #### L 501.080 ####[facility] [address] [place], [address] FINGERSTICK GLU 338 mg/dL High [address] [place] [address] Comment on above: Result Comment: KATARINA GEMENT OF PATIENT CARE PER NURSING PROTOCOL Performed By: #### L 501.080 ####[facility] [address] [place], [address] Bilirubin Test strip Ql (U)O rdered By: Jeevan Yoder on 01-20-2025 Bilirubin Ql (U) Negative Negative [facility] Bilirubin, totalOrdered By: Jeevan Yoder on 01-20-2025 Bilirubin [Mass/Vol] 0.26 mg/dL 0.00-1.30 [facility] 0[facility] BARON TEST Positive Normal [facility] Comment on above: Performed By: #### L 9000.0800 ####[facility] [address] [place], [address] Base excess Calc (Bld) [Moles/Vol] 10 mmol/L High -2 to +2 [facility] Comment on above: Performed By: #### L 9000.08 ####[facility] [address] [place], [address] Blood Gas Type ART Normal [facility] Comment on above: Performed By: #### L 8999.0800 ####[facility] [address] [place], [address] CO2 [Moles/Vol] 37 mmol/L Normal [facility] Comment on above: Performed By: #### L 8999.08 ####[facility] [address] [place], [address] FI02 30.0 Normal [facility] Comment on above: Performed By: #### L 8999.0800 ####[facility] [address] [place], [address] HCO3 (Bld) [Moles/Vol] 35.5 mmol/L High 22-26 [facility] Comment on above: Performed By: #### L 8999.0800 ####[facility] [address] [place], [address] Normal [facility] Comment on above: Performed By: #### L 8999.08 ####[facility] [address] [place], [address] O2 Delivery Dev BiPAP Normal [facility] Comment on above: Performed By: #### L 8999.0800 ####[facility] [address] [place], [address] pCO2 59.4 mmHg High 35-45 [facility] Comment on above: Performed By: #### L 8999.0800 ####[facility] [address] [place], [address] PEEP 8 Normal [facility] Comment on above: Performed By: #### L 8999.0800 ####[facility] [address] [place], [address] pH (Bld) 7.38 [pH] Normal 7.35-7.45 [facility] Comment on above: Performed By: #### L 9000.0800 ####[facility] [address] [place], [address] PO2 21 mmHG Invalid Interpretation Code 75-100 [facility] Comment on above: Performed By: #### L 9000.0800 ####[facility] [address] [place], [address] Read Back By Yes [facility] Comment on above: Performed By: #### L 9000.0800 ####[facility] [address] [place], [address] Results To tereletsky Normal [facility] Comment on above: Performed By: #### L 9000.0800 ####[facility] [address] [place], [address] RR 14 Normal [facility] Comment on above: Performed By: #### L 9000.0800 ####[facility] [address] [place], [address] SITE R Radial Normal [facility] Comment on above: Performed By: #### L 9000.0800 ####[facility] [address] [place], [address] SO2 32 Low 95-99 [facility] Comment on above: Performed By: #### L 9000.0800 ####[facility] [address] [place], [address] Time Given 16:55:40 [facility] Comment on above: Performed By: #### L 9000.0800 ####[facility] [address] [place], [address] Vt 500.0 mL Normal [facility] Comment on above: Performed By: #### L 9000.0800 ####[facility] [address] [place], [address] BARON TEST Positive Normal [facility] Comment on above: Performed By: #### L 9000.0800 ####[facility] [address] [place], [address] Base excess Calc (Bld) [Moles/Vol] 5 mmol/L High -2 to +2 [facility] Comment on above: Performed By: #### L 9000.0800 ####[facility] [address] [place], [address] Blood Gas Type ART Normal [facility] Comment on above: Performed By: #### L 9000.0800 ####[facility] [address] [place], [address] CO2 [Moles/Vol] 33 mmol/L Normal [facility] Comment on above: Performed By: #### L 9000.0800 ####[facility] [address] [place], [address] FI02 30.0 [facility] Comment on above: Performed By: #### L 9000.0800 ####[facility] [address] [place], [address] HCO3 (Bld) [Moles/Vol] 30.8 mmol/L High 22-26 [facility] Comment on above: Performed By: #### L 9000.0800 ####[facility] [address] [place], [address] Mode Not entered Normal [facility] Comment on above: Performed By: #### L 9000.0800 ####[facility] [address] [place], [address] O2 Delivery Dev BiPAP Normal [facility] Comment on above: Performed By: #### L 9000.0800 ####[facility] [address] [place], [address] pCO2 56.2 mmHg High 35-45 [facility] Comment on above: Performed By: #### L 9000.0800 ####[facility] [address] [place], [address] PEEP 8 Normal [facility] Comment on above: Performed By: #### L 9000.0800 ####[facility] [address] [place], [address] pH (Bld) 7.35 [pH] Normal 7.35-7.45 [facility] Comment on above: Performed By: #### L 9000.0800 ####[facility] [address] [place], [address] PO2 37 mmHG Invalid Interpretation Code 75-100 [facility] Comment on above: Performed By: #### L 9000.0800 ####[facility] [address] [place], [address] Read Back By Yes [facility] Comment on above: Performed By: #### L 9000.0800 ####[facility] [address] [place], [address] RR 14 Normal [facility] Comment on above: Performed By: #### L 9000.0800 ####[facility] [address] [place], [address] SITE R Radial Normal [facility] Comment on above: Performed By: #### L 9000.0800 ####[facility] [address] [place], [address] SO2 66 Low 95-99 [facility] Comment on above: Performed By: #### L 9000.0800 ####[facility] [address] [place], [address] Vt 500.0 mL Normal [facility] Comment on above: Performed By: #### L 8999.08 ####[facility] [address] [place], [address] BARON TEST Positive Normal [facility] Comment on above: Performed By: #### L 8999.0800 ####[facility] [address] [place], [address] Base excess Calc (Bld) [Moles/Vol] 5 mmol/L High -2 to +2 [facility] Comment on above: Performed By: #### L 8999.0800 ####[facility] [address] [place], [address] Blood Gas Type ART Normal [facility] Comment on above: Performed By: #### L 8999.0800 ####[facility] [address] [place], [address] CO2 [Moles/Vol] 34 mmol/L Normal [facility] Comment on above: Performed By: #### L 8999.0800 ####[facility] [address] [place], [address] Comment Normal [facility] Comment on above: Result Comment: AVAP S 500vt 14rr 100% +8 maxP=26 minP=18 Performed By: #### L 8999.0800 ####[facility] [address] [place], [address] FI02 100.0 Normal [facility] Comment on above: Performed By: #### L 8999.0800 ####[facility] [address] [place], [address] HCO3 (Bld) [Moles/Vol] 31.6 mmol/L High 22-26 [facility] Comment on above: Performed By: #### L 9000.0800 ####[facility] [address] [place], [address] Mode Not entered Normal [facility] Comment on above: Performed By: #### L 9000.0800 ####[facility] [address] [place], [address] O2 Delivery Dev BiPAP Normal [facility] Comment on above: Performed By: #### L 9000.0800 ####[facility] [address] [place], [address] pCO2 63.0 mmHg High 35-45 [facility] Comment on above: Performed By: #### L 9000.0800 ####[facility] [address] [place], [address] pH (Bld) 7.31 [pH] Low 7.35-7.45 [facility] Comment on above: Performed By: #### L 9000.0800 ####[facility] [address] [place], [address] PO2 83 mmHG Normal 75-100 [facility] Comment on above: Performed By: #### L 9000.0800 ####[facility] [address] [place], [address] SITE R Radial Normal [facility] Comment on above: Performed By: #### L 9000.0800 ####[facility] [address] [place], [address] SO2 95 Normal 95-99 [facility] Comment on above: Performed By: #### L 9000.0800 ####[facility] [address] [place], [address] Blood base excess determinat ionOrdered By: Lucio Borden on 01-20-2025 Base excess Calc (BldV) [Moles/Vol] 10 mmol/L High -2-2 [facility] Blood bicarbonate measuremen tOrdered By: Lucio Borden on 01-20-2025 HCO3 (Bld) [Moles/Vol] 35.5 mmol/L High 22-26 [facility] Blood cultureOrdered By: Mikey Marie on 01-20-2025 Bacteria identified Cx Nom (Bld) No growth in 5 days. [facility] Blood cultureOrdered By: Maeve Yoder on 01-20-2025 Bacteria identified Cx Nom (Bld) No growth in 5 days. [facility] Bacteria identified Cx Nom (Bld) No growth in 5 days. [facility] CBC W/Diff, Automatedon 12-30 Absolute Lymph 4.62 X10 3/uL High 0.83-4.51 [facility] Comment on above: Performed By: #### L 300.4310, L100.0100, L300.3900, L501.4021, L503.6005, L500.4050, M200.1000 ####[facility] [address] [place], [address] Absolute Neut 8.4 X10 3/uL High 2.0-7.7 [facility] Comment on above: Performed By: #### L 300.4310, L100.0100, L300.3900, L501.4021, L503.6005, L500.4050, M200.1000 ####[facility] [address] [place], [address] Basophils/100 WBC (Bld) 0.6 % Normal 0-1 [facility] Comment on above: Performed By: #### L 300.4310, L100.0100, L300.3900, L501.4021, L503.6005, L500.4050, M200.1000 ####[facility] [address] [place], [address] Eosinophils/100 WBC (Bld) 0.8 % Normal 0-5 [facility] Comment on above: Performed By: #### L 300.4310, L100.0100, L300.3900, L501.4021, L503.6005, L500.4050, M200.1000 ####[facility] [address] [place], [address] Erythrocyte distribution width (RBC) [Ratio] 16.0 % High 11.6-14.6 [facility] Comment on above: Performed By: #### L 300.4310, L100.0100, L300.3900, L501.4021, L503.6005, L500.4050, M200.1000 ####[facility] [address] [place], [address] Hematocrit (Bld) [Volume fraction] 39.6 % Normal 37-47 [facility] Comment on above: Performed By: #### L 300.4310, L100.0100, L300.3900, L501.4021, L503.6005, L500.4050, M200.1000 ####[facility] [address] [place], [address] Hemoglobin (Bld) [Mass/Vol] 12.1 g/dL Normal 12.0-15.0 [facility] Comment on above: Performed By: #### L 300.4310, L100.0100, L300.3900, L501.4021, L503.6005, L500.4050, M200.1000 ####[facility] [address], [address] IG% 0.500 Normal 0.0-0.9 [facility] Comment on above: Result Comment: IG% - Immature Granulocytes (promyelocytes, myelocytes andmetamyelocytes) > 1% indicates that a LEFT SHIFT is Present. Performed By: #### L 300.4310, L100.0100, L300.3900, L501.4021, L503.6005, L500.4050, M200.1000 ####[facility] [address] [place], [address] Lymphocytes/100 WBC (Bld) 32.0 % Normal 19-41 [facility] Comment on above: Performed By: #### L 300.4310, L100.0100, L300.3900, L501.4021, L503.6005, L500.4050, M200.1000 ####[facility] [address] [place], [address] MCH (RBC) [Entitic mass] 27.4 pg Normal 27.0-32.0 [facility] Comment on above: Performed By: #### L 300.4310, L100.0100, L300.3900, L501.4021, L503.6005, L500.4050, M200.1000 ####[facility] [address] [place], [address] MCHC (RBC) [Mass/Vol] 30.6 g/dL Low 32-36 [facility] Comment on above: Performed By: #### L 300.4310, L100.0100, L300.3900, L501.4021, L503.6005, L500.4050, M200.1000 ####[facility] [address] [place], [address] MCV (RBC) [Entitic vol] 89.8 fL Normal 81-99 [facility] Comment on above: Performed By: #### L 300.4310, L100.0100, L300.3900, L501.4021, L503.6005, L500.4050, M200.1000 ####[facility] [address] [place], [address] Monocytes/100 WBC (Bld) 7.7 % Normal 0-10 [facility] Comment on above: Performed By: #### L 300.4310, L100.0100, L300.3900, L501.4021, L503.6005, L500.4050, M200.1000 ####[facility] [address] [place], [address] Neutrophils/100 WBC (Bld) 58.4 % Normal 47-70 [facility] Comment on above: Performed By: #### L 300.4310, L100.0100, L300.3900, L501.4021, L503.6005, L500.4050, M200.1000 ####[facility] [address] [place], [address] Nucleated RBC (Bld) [#/Vol] 0 10*3/uL Normal 0-5 [facility] Comment on above: Performed By: #### L 300.4310, L100.0100, L300.3900, L501.4021, L503.6005, L500.4050, M200.1000 ####[facility] [address] [place], [address] Platelet mean volume (Bld) [Entitic vol] 12.0 fL Normal 6.2-12.0 [facility] Comment on above: Performed By: #### L 300.4310, L100.0100, L300.3900, L501.4021, L503.6005, L500.4050, M200.1000 ####[facility] [address] [place], [address] Platelets (Bld) [#/Vol] 287 10*3/uL Normal 150-450 [facility] Comment on above: Performed By: #### L 300.4310, L100.0100, L300.3900, L501.4021, L503.6005, L500.4050, M200.1000 ####[facility] [address] [place], [address] RBC (Bld) [#/Vol] 4.41 10*6/uL Normal 4.2-5.4 [facility] Comment on above: Performed By: #### L 300.4310, L100.0100, L300.3900, L501.4021, L503.6005, L500.4050, M200.1000 ####[facility] [address] [place], [address] RDW SD 52.7 fl High 35.1-43.9 [facility] Comment on above: Performed By: #### L 300.4310, L100.0100, L300.3900, L501.4021, L503.6005, L500.4050, M200.1000 ####[facility] [address] [place], [address] WBC (Bld) [#/Vol] 14.4 10*3/uL High 4.4-11.0 [facility] Comment on above: Performed By: #### L 300.4310, L100.0100, L300.3900, L501.4021, L503.6005, L500.4050, M200.1000 ####[facility] [address] [place], [address] CTA Chest W/WO Contraston CTA Chest W/WO Contrast Normal [facility] Calculated very low density lipoprotein (VLDL) cholesterol measurementOrdered By: Sandeep Marie on 01-20-2025 Calculated very low density lipoprotein (VLDL) cholesterol measurement 12 mg/dL 5-40 [facility] Comprehensive Metabolic Prof ilon 01-20-2025 Albumin [Mass/Vol] 3.6 g/dL Normal 3.4-4.8 [facility] Comment on above: Performed By: #### L 300.4310, L100.0100, L300.3900, L501.4021, L503.6005, L500.4050, M200.1000 ####[facility] [address] [place], [place], [address] Albumin/Globulin [Mass ratio] 0.9 {ratio} Normal 0.9-2.4 [facility] Comment on above: Performed By: #### L 300.4310, L100.0100, L300.3900, L501.4021, L503.6005, L500.4050, M200.1000 ####[facility] [address] [place], [address] ALK PHOS 143 U/L High 35-104 [facility] Comment on above: Performed By: #### L 300.4310, L100.0100, L300.3900, L501.4021, L503.6005, L500.4050, M200.1000 ####[facility] [address] [place], [address] ALT [Catalytic activity/Vol] 36 U/L High <=34 [facility] Comment on above: Performed By: #### L 300.4310, L100.0100, L300.3900, L501.4021, L503.6005, L500.4050, M200.1000 ####[facility] [address] [place], [address] AST [Catalytic activity/Vol] 81 U/L High <=31 [facility] Comment on above: Result Comment: Hemo lysis present, Results??could be affected.?? Performed By: #### L 300.4310, L100.0100, L300.3900, L501.4021, L503.6005, L500.4050, M200.1000 ####[facility] [address] [place], [address] Bilirubin [Mass/Vol] 0.26 mg/dL Normal 0.00-1.30 [facility] Comment on above: Performed By: #### L 300.4310, L100.0100, L300.3900, L501.4021, L503.6005, L500.4050, M200.1000 ####[facility] [address] [place], [address] BUN/CRE 8.1 RATIO Low 10-20 [facility] Comment on above: Performed By: #### L 300.4310, L100.0100, L300.3900, L501.4021, L503.6005, L500.4050, M200.1000 ####[facility] [address] [place], [address] Calcium [Mass/Vol] 10.2 mg/dL Normal 7.6-11.0 [facility] Comment on above: Performed By: #### L 300.4310, L100.0100, L300.3900, L501.4021, L503.6005, L500.4050, M200.1000 ####[facility] [address] [place], [address] Chloride [Moles/Vol] 97 mmol/L Low 98-108 [facility] Comment on above: Performed By: #### L 300.4310, L100.0100, L300.3900, L501.4021, L503.6005, L500.4050, M200.1000 ####[facility] [address] [place], [address] CO2 [Moles/Vol] 25.7 mmol/L Normal 21.0-32.0 [facility] Comment on above: Performed By: #### L 300.4310, L100.0100, L300.3900, L501.4021, L503.6005, L500.4050, M200.1000 ####[facility] [address] [place], [address] Creatinine [Mass/Vol] 1.24 mg/dL High 0.70-1.20 [facility] Comment on above: Performed By: #### L 300.4310, L100.0100, L300.3900, L501.4021, L503.6005, L500.4050, M200.1000 ####[facility] [address] [place], [address] ECRCL 34.84 ml/min Low 50-250 [facility] Comment on above: Performed By: #### L 300.4310, L100.0100, L300.3900, L501.4021, L503.6005, L500.4050, M200.1000 ####[facility] [address] [place], [address] GAP 15 Normal 5-15 [facility] Comment on above: Performed By: #### L 300.4310, L100.0100, L300.3900, L501.4021, L503.6005, L500.4050, M200.1000 ####[facility] [address] [place], [address] GFR/1.73 sq M.predicted among non-blacks MDRD (S/P/Bld) [Vol rate/Area] 44 mL/min/{1.73_m2} Low >60 [facility] Comment on above: Result Comment: mL/m in/1.73m2 CKD-EPI Creatinine Equation (2020) Performed By: #### L 300.4310, L100.0100, L300.3900, L501.4021, L503.6005, L500.4050, M200.1000 ####[facility] [address] [place], [address] Globulin (S) [Mass/Vol] 4.1 g/dL Normal 2.2-4.2 [facility] Comment on above: Performed By: #### L 300.4310, L100.0100, L300.3900, L501.4021, L503.6005, L500.4050, M200.1000 ####[facility] [address] [place], [address] Glucose [Mass/Vol] 347 mg/dL High 70-99 [facility] Comment on above: Performed By: #### L 300.4310, L100.0100, L300.3900, L501.4021, L503.6005, L500.4050, M200.1000 ####[facility] [address] [place], [address] Potassium [Moles/Vol] 4.0 mmol/L Normal 3.3-5.1 [facility] Comment on above: Result Comment: Hemo lysis present, Results??could be affected.?? Performed By: #### L 300.4310, L100.0100, L300.3900, L501.4021, L503.6005, L500.4050, M200.1000 ####[facility] [address] [place], [address] Sodium [Moles/Vol] 137 mmol/L Normal 133-145 [facility] Comment on above: Performed By: #### L 300.4310, L100.0100, L300.3900, L501.4021, L503.6005, L500.4050, M200.1000 ####[facility] [address] [place], [address] T PROT 7.6 g/dL Normal 5.9-8.4 [facility] Comment on above: Performed By: #### L 300.4310, L100.0100, L300.3900, L501.4021, L503.6005, L500.4050, M200.1000 ####[facility] [address] [place], [address] Urea nitrogen [Mass/Vol] 10 mg/dL Normal 4-19 [facility] Comment on above: Performed By: #### L 300.4310, L100.0100, L300.3900, L501.4021, L503.6005, L500.4050, M200.1000 ####[facility] [address] [place], [place], [address] Echo Completeon 01-20-2025 Echo Complete Normal [facility] Echocardiogram study reportO rdered By: Marcelina Soto on 01-20-2025 Study report [facility] Work Phone: Emergency Department Summary on 01-20-2025 Emergency Department Summary Normal [facility] H AND P Exam - Hospitaliston 01-20-2025 H&P Exam - Hospitalist Normal [facility] Hemoglobin A1con 01-20-2025 HbA1c (Bld) [Mass fraction] 10.6 % High <=5.6 [facility] Comment on above: Result Comment: Norm al < 5.7 % Prediabetic 5.7 - 6.4 % Diabetic >or= 6.5 % Please note range changes. Performed By: #### L 501.9985 ####[facility] [address] [place], [place], [address] Hemoglobin A1c percentageOrd ered By: Sandeep Marie on 01-20-2025 HbA1c (Bld) [Mass fraction] 10.6 % High <5.7 [facility] Ketones Test strip Ql (U)Ord ered By: Jeevan Yoder on 01-20-2025 Ketones Ql (U) Negative Negative [facility] L499.0042on 01-20-2025 Trop T High Sen 71 ng/L Invalid Interpretation Code <=14 [facility] Comment on above: Result Comment: Crit ical Result(s) Called at:0237 by: EMA PATEL.??Results read back by same. Performed By: #### L 499.0042 ####[facility] [address] [place], [place], [address] L499.0043on 01-20-2025 Trop T High Sen 94 ng/L Invalid Interpretation Code <=14 [facility] Comment on above: Order Comment: PT SUAREZ S NOT MADE IT TO ROOM YET FROM ER OF 409 Result Comment: Crit ical Result(s) Called at 0548: by: SHARONA ALVAREZ. ??Results read back by same. Performed By: #### L 499.0043 ####[facility] [address] [place], [address] L501.4021on 01-20-2025 Trop T High Sen 52 ng/L High <=14 [facility] Comment on above: Performed By: #### L 300.4310, L100.0100, L300.3900, L501.4021, L503.6005, L500.4050, M200.1000 ####[facility] [address] [place], [address] L503.7505on 01-20-2025 Natriuretic peptide B (Bld) [Mass/Vol] 9449 pg/mL High <=1800 [facility] Comment on above: Result Comment: Hear t Failure Unlikely: < 300 pg/mLHeart Failure Likely< 50 Years: > 450 pg/mL50-75 Years: > 900 pg/mL>75 Years: > 1800 pg/mL Performed By: #### L 501.9520, L503.7505, L500.4100 ####[facility] [address] [place], [place], [address] LDL calc ser/plasOrdered By: Sandeep Marie on 01-20-2025 Cholesterol in LDL [Mass/Vol] 79 mg/dL [facility] Lactic Acidon 01-20-2025 Lactate [Moles/Vol] 1.7 mmol/L Normal 0.0-2.0 [facility] Comment on above: Performed By: #### L 503.6005 ####[facility] [address] [place], [address] Lactate [Moles/Vol] 2.0 mmol/L Normal 0.0-2.0 [facility] Comment on above: Order Comment: Comme nts: if result >2, system reflex orders 2nd test @ 4hrsY Result Comment: Crit ical Result(s) Called at 0615: by: SHARONA CHRISTOPHER TOAFLICKINGER. ??Results read back by same. Performed By: #### M 200.1000, L503.6005 ####[facility] [address] [place], [address] Lactate [Moles/Vol] 3.4 mmol/L Invalid Interpretation Code 0.0-2.0 [facility] Comment on above: Order Comment: Y Result Comment: Crit ical Result(s) Called at: 0116 by: EMA BOWEN TO [facility].??Results read back by same. Performed By: #### L 300.4310, L100.0100, L300.3900, L501.4021, L503.6005, L500.4050, M200.1000 ####[facility] [address] [place], [address] Legionella Antigen Urineon 0 01-20-2025 LEGU Normal [facility] Comment on above: Performed By: #### M 300.4600, M300.4500 ####[facility] [address] [place], [address] Lipid Profileon 01-20-2025 CHOL:HDL 2.89 Normal [facility] Comment on above: Performed By: #### L 501.9520, L503.7505, L500.4100 ####[facility] [address] [place], [address] Cholesterol [Mass/Vol] 140 mg/dL Normal <=200 [facility] Comment on above: Result Comment: Chol esterol level, Desirable <200 mg/dLBorderline high cholesterol 200-239 mg/dLHigh cholesterol >=240 mg/dLRecommendations of the NCEP Adult Treatment Panel for thefollowing risk-cutoff thresholds for the [place] Americanpopulation. Performed By: #### L 501.9520, L503.7505, L500.4100 ####[facility] [address] [place], [address] Cholesterol in HDL [Mass/Vol] 49 mg/dL Normal [facility] Comment on above: Result Comment: Camelia onal Cholesterol Education Program (NCEP) guidelines:<40 mg/dL: Low HDL-cholesterol (major risk factor for CHD)>= 60 mg/dL: High HDL-cholesterol (negative risk factor forCHD)HDL-cholesterol is affected by a number of factors, e.g.smoking, exercise, hormones, sex and age. Performed By: #### L 501.9520, L503.7505, L500.4100 ####[facility] [address] [place], [address] Cholesterol in LDL [Mass/Vol] 79 mg/dL Normal [facility] Comment on above: Result Comment: Bord cjipix=149-850 mg/dL Higher Jmyv=215 mg/dL or greater Performed By: #### L 501.9520, L503.7505, L500.4100 ####[facility] [address] [place], [address] Cholesterol in VLDL [Mass/Vol] 12 mg/dL Normal 5-40 [facility] Comment on above: Performed By: #### L 501.9520, L503.7505, L500.4100 ####[facility] [address] [place], [address] Triglyceride [Mass/Vol] 62 mg/dL Normal [facility] Comment on above: Result Comment: The drugs N-Acetylcysteine and Metamizole may falselydepress this assay.Normal range: <150 mg/dLBorderline High: 150-199 mg/dLHigh: 200-499 mg/dLVery High: >500 mg/dL Performed By: #### L 501.9520, L503.7505, L500.4100 ####[facility] [address] [place], [address] Measurement, pHOrdered By: Connor Borden on 01-20-2025 pH (Unsp spec) 7.38 [pH] 7.35-7.45 [facility] Mucus LM Ql (Urine sed)Order ed By: Jevean Yoder on 01-20-2025 Mucus Ql (Urine sed) 0 SEEN /hpf [facility] Nitrite Test strip Ql (U)Ord ered By: Jeevan Yoder on 01-20-2025 Nitrite Ql (U) Negative Negative [facility] No Panel InformationOrdered By: Lucio Borden on 01-20-2025 ART [facility] R Radial [facility] ST [facility] BiPAP [facility] 500.0 mL [facility] 14 [facility] 8 [facility] 16:55:40 [facility] Yes [facility] No Panel InformationOrdered By: Jeevan Yoder on 01-20-2025 See comment [facility] 81 U/L High <32 [facility] Partial Thromboplast Timeon 01-20-2025 aPTT Coag (Bld) [Time] 26.9 s Normal 24.1-36.2 [facility] Comment on above: Performed By: #### L 300.4310, L100.0100, L300.3900, L501.4021, L503.6005, L500.4050, M200.1000 ####[facility] [address] [place], [place], [address] Protein Test strip Ql (U)Ord ered By: Jeevan Yoder on 01-20-2025 Protein Ql (U) 100 mg/dl High Negative [facility] Prothrombin Time w/INRon INR Coag (PPP) [Relative time] 1.1 {INR} Normal [facility] Comment on above: Performed By: #### L 300.4310, L100.0100, L300.3900, L501.4021, L503.6005, L500.4050, M200.1000 ####[facility] [address] [place], [address] PT Coag (PPP) [Time] 14.6 s Normal 11.7-14.9 [facility] Comment on above: Performed By: #### L 300.4310, L100.0100, L300.3900, L501.4021, L503.6005, L500.4050, M200.1000 ####[facility] [address] [place], [place], [address] Prothrombin timeOrdered By: Jeevan Yoder on 01-20-2025 PT Coag (PPP) [Time] 14.6 s 11.7-14.9 [facility] RESPIRATORY PANEL MOLECULARo n 01-20-2025 RP PANEL Normal [facility] Comment on above: Performed By: #### M 100.638 ####[facility] [address] [place], [place], [address] Respiratory pathogens detect ion panel by molecular detection methodOrdered By: Sandeep Marie on 01-20-2025 Respiratory pathogens DNA and RNA panel BEBETO+probe (Resp) [facility] Serum globulin measurementOr dered By: Jeevan Yoder on 01-20-2025 Globulin (S) [Mass/Vol] 4.1 g/dL 2.2-4.2 [facility] Serum or plasma alanine kelley otransferase (ALT) measurementOrdered By: Jeevan Yoder on 01-20-2025 ALT [Catalytic activity/Vol] 36 U/L High <35 [facility] Serum or plasma albumin melanie urement (mass/volume)Ordered By: Jeevan Yoder on 01-20-2025 Albumin [Mass/Vol] 3.6 g/dL 3.4-4.8 [facility] Serum or plasma albumin/glob ulin mass ratioOrdered By: Jeevan Yoder on 01-20-2025 Albumin/Globulin [Mass ratio] 0.9 {ratio} 0.9-2.4 [facility] Serum or plasma alkaline lissa sphatase measurementOrdered By: Jeevan Yoder on 01-20-2025 ALP [Catalytic activity/Vol] 143 U/L High 35-104 [facility] Serum or plasma cholesterol in HDL measurement (mass/volume)Ordered By: Sandeep Marie on 01-20-2025 Cholesterol in HDL [Mass/Vol] 49 mg/dL >40 [facility] Serum or plasma cholesterol measurement (mass/volume)Ordered By: Sandeep Marie on 01-20-2025 Cholesterol [Mass/Vol] 140 mg/dL <201 [facility] Squamous epithelial cells de tection in urine sediment by light microscopyOrdered By: Jeevan Yoder on 01-20-2025 Epithelial cells.squamous LM Ql (Urine sed) 5-10 SEEN /hpf 5-10 [facility] Strep pneumoniae Antig(UR,CS F)on 01-20-2025 STPAG Normal [facility] Comment on above: Performed By: #### M 300.4600, M300.4500 ####[facility] [address] [place], [place], [address] TSH DL <= 0.005 mIU/L QnOrde red By: Sandeep Marie on 01-20-2025 TSH Qn 0.492 uIU/mL 0.300-4.200 [facility] Thyroid Stim Hormone (TSH)on 01-20-2025 TSH 0.492 uIU/mL Normal 0.300-4.200 [facility] Comment on above: Performed By: #### L 501.9520, L503.7505, L500.4100 ####[facility] [address] [place], [place], [address] Total carbon dioxide measure mentOrdered By: Lucio Borden on 01-20-2025 CO2 [Moles/Vol] 37 mmol/L [facility] Total proteinOrdered By: Maeve Yoder on 01-20-2025 Protein [Mass/Vol] 7.6 g/dL 5.9-8.4 [facility] Troponin T.cardiac [Mass/vol ume] in Serum or Plasma by High sensitivity methodOrdered By: Jeevan Yoder on 01-20-2025 Troponin T.cardiac High sensitivity method [Mass/Vol] 94 ng/L High <14 [facility] Troponin T.cardiac High sensitivity method [Mass/Vol] 71 ng/L High <14 [facility] Troponin T.cardiac High sensitivity method [Mass/Vol] 52 ng/L High <14 [facility] Urinalysis, Completeon 01-20 EPI,SQUAMOUS 5-10 SEEN Normal 5-10 [facility] Comment on above: Order Comment: MARSHALL CTOR TO SPECIFY Performed By: #### L 400.0001 ####[facility] [address] [place], [address] RBC 5-10 SEEN Normal 0-5 [facility] Comment on above: Order Comment: MARSHALL CTOR TO SPECIFY Performed By: #### L 400.0001 ####[facility] [address] [place], [address] WBC 0-5 SEEN Normal 0-5 [facility] Comment on above: Order Comment: MARSHALL CTOR TO SPECIFY Performed By: #### L 400.0001 ####[facility] [address] [place], [address] BACTERIA 0 SEEN Normal None Seen [facility] Comment on above: Order Comment: MARSHALL CTOR TO SPECIFY Performed By: #### L 400.0001 ####[facility] [address] [place], [address] Mucus Ql (Urine sed) 0 SEEN Normal [facility] Comment on above: Order Comment: MARSHALL CTOR TO SPECIFY Performed By: #### L 400.0001 ####[facility] [address] [place], [address] Urine Legionella pneumophila antigen detectionOrdered By: Sandeep Marie on 01-20-2025 L. pneumophila Ag Ql (U) [facility] Urine clarityOrdered By: Maeve Yoder on 01-20-2025 Clarity (U) Clear Clear [facility] Urine color determinationOrd ered By: Jeevan Yoder on 01-20-2025 Color (U) Straw Yellow [facility] Urine cultureOrdered By: Maeve Yoder on 01-20-2025 Bacteria identified Cx Nom (U) Proteus mirabilis Abnormal [facility] Urine glucose detectionOrder ed By: Jeevan Yoder on 01-20-2025 Glucose Ql (U) 1000 mg/dl High Normal [facility] Urine leukocyte esterase det ection by dipstickOrdered By: Jeevan Yoder on 01-20-2025 Leukocyte esterase Test strip Ql (U) Negative Negative [facility] Urine pHOrdered By: Jeevan [place] on 01-20-2025 pH (U) 6.0 [pH] 5.0 - 8.0 [facility] Urine sediment bacteria coun t by microscopy (number/high power field)Ordered By: Jeevan Yoder on 01-20-2025 Bacteria LM.HPF (Urine sed) [#/Area] 0 /[HPF] None Seen [facility] Urine specific gravity measu rementOrdered By: Jeevan Yoder on 01-20-2025 Specific gravity (U) [Rel density] 1.010 1.002-1.030 [facility] Urine urobilinogen measureme ntOrdered By: Jeevan Yoder on 01-20-2025 Urobilinogen Ql (U) Normal mg/dl Normal [facility] White blood cell countOrdere d By: Jeevan Yoder on 01-20-2025 White blood cell count 0-5 SEEN /hpf 0-5 [facility] Anion gap in Serum or Plasma Ordered By: Ramone Smiley on 01-19-2025 Anion gap [Moles/Vol] 14 mmol/L 5-15 [facility] BUN/creatinine ratioOrdered By: Ramone Smiley on 01-19-2025 Urea nitrogen/Creatinine [Mass ratio] 7.7 mg/mg Low 10-20 [facility] Bilirubin, totalOrdered By: Ramone Smiley on 01-19-2025 Bilirubin [Mass/Vol] 0.25 mg/dL 0.00-1.30 [facility] CBC-Complete Blood Cnt No Di ffon 01-19-2025 Erythrocyte distribution width (RBC) [Ratio] 16.0 % High 11.6-14.6 [facility] Comment on above: Order Comment: Order Date: 01/19/25Order Info: [id number] - CBC Performed By: #### L 500.4050, L501.5200, L100.0500 ####[facility] [address] [place], [place], [address] Hematocrit (Bld) [Volume fraction] 35.3 % Low 37-47 [facility] Comment on above: Order Comment: Order Date: 01/19/25Order Info: [id number] - CBC Performed By: #### L 500.4050, L501.5200, L100.0500 ####[facility] [address] [place], [address] Hemoglobin (Bld) [Mass/Vol] 10.9 g/dL Low 12.0-15.0 [facility] Comment on above: Order Comment: Order Date: 01/19/25Order Info: [id number] - CBC Performed By: #### L 500.4050, L501.5200, L100.0500 ####[facility] [address] [place], [address] MCH (RBC) [Entitic mass] 27.7 pg Normal 27.0-32.0 [facility] Comment on above: Order Comment: Order Date: 01/19/25Order Info: [id number] - CBC Performed By: #### L 500.4050, L501.5200, L100.0500 ####[facility] [address] [place], [address] MCHC (RBC) [Mass/Vol] 30.9 g/dL Low 32-36 [facility] Comment on above: Order Comment: Order Date: 01/19/25Order Info: [id number] - CBC Performed By: #### L 500.4050, L501.5200, L100.0500 ####[facility] [address] [place], [address] MCV (RBC) [Entitic vol] 89.6 fL Normal 81-99 [facility] Comment on above: Order Comment: Order Date: 01/19/25Order Info: [id number] - CBC Performed By: #### L 500.4050, L501.5200, L100.0500 ####[facility] [address] [place], [address] Platelet mean volume (Bld) [Entitic vol] 11.6 fL Normal 6.2-12.0 [facility] Comment on above: Order Comment: Order Date: 01/19/25Order Info: [id number] - CBC Performed By: #### L 500.4050, L501.5200, L100.0500 ####[facility] [address] [place], [address] Platelets (Bld) [#/Vol] 253 10*3/uL Normal 150-450 [facility] Comment on above: Order Comment: Order Date: 01/19/25Order Info: [id number] - CBC Performed By: #### L 500.4050, L501.5200, L100.0500 ####[facility] [address] [place], [address] RBC (Bld) [#/Vol] 3.94 10*6/uL Low 4.2-5.4 [facility] Comment on above: Order Comment: Order Date: 01/19/25Order Info: [id number] - CBC Performed By: #### L 500.4050, L501.5200, L100.0500 ####[facility] [address] [place], [address] RDW SD 52.7 fl High 35.1-43.9 [facility] Comment on above: Order Comment: Order Date: 01/19/25Order Info: [id number] - CBC Performed By: #### L 500.4050, L501.5200, L100.0500 ####[facility] [address] [place], [address] WBC (Bld) [#/Vol] 8.3 10*3/uL Normal 4.4-11.0 [facility] Comment on above: Order Comment: Order Date: 01/19/25Order Info: [id number] - CBC Performed By: #### L 500.4050, L501.5200, L100.0500 ####[facility] [address] [place], [address] Carbon dioxide, total [Moles /volume] in Central venous bloodOrdered By: Ramone Smiley on 01-19-2025 CO2 [Moles/Vol] 27.2 mmol/L 21.0-32.0 [facility] Chloride assayOrdered By: Richar Smiley on 01-19-2025 Chloride [Moles/Vol] 96 mmol/L Low 98-108 [facility] Comprehensive Metabolic Prof ilon 01-19-2025 Albumin [Mass/Vol] 3.4 g/dL Normal 3.4-4.8 [facility] Comment on above: Order Comment: Order Date: 01/19/25Order Info: [id number] - CMPOrder Info: [id number] - MG Performed By: #### L 500.4050, L501.5200, L100.0500 ####[facility] [address] [place], [address] Albumin/Globulin [Mass ratio] 0.9 {ratio} Normal 0.9-2.4 [facility] Comment on above: Order Comment: Order Date: 01/19/25Order Info: [id number] - CMPOrder Info: [id number] - MG Performed By: #### L 500.4050, L501.5200, L100.0500 ####[facility] [address] [place], [address] ALK PHOS 123 U/L High 35-104 [facility] Comment on above: Order Comment: Order Date: 01/19/25Order Info: [id number] - CMPOrder Info: [id number] - MG Performed By: #### L 500.4050, L501.5200, L100.0500 ####[facility] [address] [place], [address] ALT [Catalytic activity/Vol] 18 U/L Normal <=34 [facility] Comment on above: Order Comment: Order Date: 01/19/25Order Info: [id number] - CMPOrder Info: [id number] - MG Performed By: #### L 500.4050, L501.5200, L100.0500 ####[facility] [address] [place], [address] AST [Catalytic activity/Vol] 25 U/L Normal <=31 [facility] Comment on above: Order Comment: Order Date: 01/19/25Order Info: [id number] - CMPOrder Info: [id number] - MG Performed By: #### L 500.4050, L501.5200, L100.0500 ####[facility] [address] [place], [address] Bilirubin [Mass/Vol] 0.25 mg/dL Normal 0.00-1.30 [facility] Comment on above: Order Comment: Order Date: 01/19/25Order Info: [id number] - CMPOrder Info: [id number] - MG Performed By: #### L 500.4050, L501.5200, L100.0500 ####[facility] [address] [place], [address] BUN/CRE 7.7 RATIO Low 10-20 [facility] Comment on above: Order Comment: Order Date: 01/19/25Order Info: [id number] - CMPOrder Info: [id number] - MG Performed By: #### L 500.4050, L501.5200, L100.0500 ####[facility] [address] [place], [address] Calcium [Mass/Vol] 10.4 mg/dL Normal 7.6-11.0 [facility] Comment on above: Order Comment: Order Date: 01/19/25Order Info: [id number] - CMPOrder Info: [id number] - MG Performed By: #### L 500.4050, L501.5200, L100.0500 ####[facility] [address] [place], [address] Chloride [Moles/Vol] 96 mmol/L Low 98-108 [facility] Comment on above: Order Comment: Order Date: 01/19/25Order Info: [id number] - CMPOrder Info: [id number] - MG Performed By: #### L 500.4050, L501.5200, L100.0500 ####[facility] [address] [place], [address] CO2 [Moles/Vol] 27.2 mmol/L Normal 21.0-32.0 [facility] Comment on above: Order Comment: Order Date: 01/19/25Order Info: [id number] - CMPOrder Info: [id number] - MG Performed By: #### L 500.4050, L501.5200, L100.0500 ####[facility] [address] [place], [address] Creatinine [Mass/Vol] 1.06 mg/dL Normal 0.70-1.20 [facility] Comment on above: Order Comment: Order Date: 01/19/25Order Info: [id number] - CMPOrder Info: [id number] - MG Performed By: #### L 500.4050, L501.5200, L100.0500 ####[facility] [address] [place], [address] GAP 14 Normal 5-15 [facility] Comment on above: Order Comment: Order Date: 01/19/25Order Info: [id number] - CMPOrder Info: [id number] - MG Performed By: #### L 500.4050, L501.5200, L100.0500 ####[facility] [address] [place], [address] GFR/1.73 sq M.predicted among non-blacks MDRD (S/P/Bld) [Vol rate/Area] 53 mL/min/{1.73_m2} Low >60 [facility] Comment on above: Order Comment: Order Date: 01/19/25Order Info: [id number] - CMPOrder Info: [id number] - MG Result Comment: mL/m in/1.73m2 CKD-EPI Creatinine Equation (2020) Performed By: #### L 500.4050, L501.5200, L100.0500 ####[facility] [address] [place], [address] Globulin (S) [Mass/Vol] 3.9 g/dL Normal 2.2-4.2 [facility] Comment on above: Order Comment: Order Date: 01/19/25Order Info: [id number] - CMPOrder Info: [id number] - MG Performed By: #### L 500.4050, L501.5200, L100.0500 ####[facility] [address] [place], [address] Glucose [Mass/Vol] 288 mg/dL High 70-99 [facility] Comment on above: Order Comment: Order Date: 01/19/25Order Info: [id number] - CMPOrder Info: [id number] - MG Performed By: #### L 500.4050, L501.5200, L100.0500 ####[facility] [address] [place], [address] Potassium [Moles/Vol] 3.3 mmol/L Normal 3.3-5.1 [facility] Comment on above: Order Comment: Order Date: 01/19/25Order Info: [id number] - CMPOrder Info: [id number] - MG Performed By: #### L 500.4050, L501.5200, L100.0500 ####[facility] [address] [place], [address] Sodium [Moles/Vol] 137 mmol/L Normal 133-145 [facility] Comment on above: Order Comment: Order Date: 01/19/25Order Info: [id number] - CMPOrder Info: [id number] - MG Performed By: #### L 500.4050, L501.5200, L100.0500 ####[facility] [address] [place], [place], [address] T PROT 7.3 g/dL Normal 5.9-8.4 [facility] Comment on above: Order Comment: Order Date: 01/19/25Order Info: [id number] - CMPOrder Info: [id number] - MG Performed By: #### L 500.4050, L501.5200, L100.0500 ####[facility] [address] [place], [address] Urea nitrogen [Mass/Vol] 8 mg/dL Normal 4-19 [facility] Comment on above: Order Comment: Order Date: 01/19/25Order Info: [id number] - CMPOrder Info: [id number] - MG Performed By: #### L 500.4050, L501.5200, L100.0500 ####[facility] [address] [place], [place], [address] Erythrocyte distribution wid th ratioOrdered By: Ramone Smiley on 01-19-2025 Erythrocyte distribution width (RBC) [Ratio] 16.0 % High 11.6-14.6 [facility] Erythrocyte distribution wid th standard deviationOrdered By: Ramone Smiley on 01-19-2025 Erythrocyte distribution width (RBC) [Ratio] 52.7 fl High 35.1-43.9 [facility] Glomerular filtration rate ( GFR) estimation/1.73 sq m using serum, plasma, or whole bOrdered By: Ramone Smiley on 01-19-2025 GFR/1.73 sq M.predicted among non-blacks MDRD (S/P/Bld) [Vol rate/Area] 53 mL/min/{1.73_m2} Low >60 [facility] Hematocrit Auto (Bld) [Volum e fraction]Ordered By: Ramone Smiley on 01-19-2025 Hematocrit (Bld) [Volume fraction] 35.3 % Low 37-47 [facility] Hemoglobin measurementOrdere d By: Ramone Smiley on 01-19-2025 Hemoglobin (Bld) [Mass/Vol] 10.9 g/dL Low 12.0-15.0 [facility] L503.7505on 01-19-2025 Natriuretic peptide B (Bld) [Mass/Vol] 3173 pg/mL High <=1800 [facility] Comment on above: Order Comment: Order Date: 01/19/25Order Info: [id number] - CMPOrder Info: [id number] - MG Result Comment: Hear t Failure Unlikely: < 300 pg/mLHeart Failure Likely< 50 Years: > 450 pg/mL50-75 Years: > 900 pg/mL>75 Years: > 1800 pg/mL Performed By: #### L 503.7505 ####[facility] [address] [place], [place], [address] MCV (mean corpuscular volume ) determinationOrdered By: Ramone Smiley on 01-19-2025 MCV (RBC) [Entitic vol] 89.6 fL 81-99 [facility] Magnesiumon 01-19-2025 Magnesium [Mass/Vol] 2.3 mg/dL High 1.5-2.2 [facility] Comment on above: Order Comment: Order Date: 01/19/25Order Info: [id number] - CMPOrder Info: [id number] - MG Performed By: #### L 500.4050, L501.5200, L100.0500 ####[facility] [address] [place], [place], [address] Magnesium measurement (mass/ volume)Ordered By: Ramone Smiley on 01-19-2025 Magnesium (Unsp spec) [Mass/Vol] 2.3 mg/dL High 1.5-2.2 [facility] Mean corpuscular hemoglobin (MCH) determinationOrdered By: Ramone Smiley on 01-19-2025 MCH (RBC) [Entitic mass] 27.7 pg 27.0-32.0 [facility] Natriuretic peptide.B prohor hayley N-Terminal [Mass/volume] in Serum or PlasmaOrdered By: Ramone Smiley on 01-19-2025 Natriuretic peptide.B prohormone N-Terminal [Mass/Vol] 3173 pg/mL High <1800 [facility] No Panel InformationOrdered By: Ramone Smiley on 01-19-2025 25 U/L <32 [facility] Platelet countOrdered By: Richar Smiley on 01-19-2025 Platelets (Bld) [#/Vol] 253 10*3/uL 150-450 [facility] Potassium measurement (mass/ volume)Ordered By: Ramone Smiley on 01-19-2025 Potassium (Unsp spec) [Mass/Vol] 3.3 mmol/L 3.3-5.1 [facility] RBC Auto (Bld) [#/Vol]Ordere d By: Ramone Smiley on 01-19-2025 RBC (Bld) [#/Vol] 3.94 10*6/uL Low 4.2-5.4 [facility] Serum creatinine measurement (mass/volume)Ordered By: Ramone Smiley on 01-19-2025 Creatinine [Mass/Vol] 1.06 mg/dL 0.70-1.20 [facility] Serum globulin measurementOr dered By: Ramone Smiley on 01-19-2025 Globulin (S) [Mass/Vol] 3.9 g/dL 2.2-4.2 [facility] Serum glucose measurement (m ass/volume)Ordered By: Ramone Smliey on 01-19-2025 Glucose [Mass/Vol] 288 mg/dL High 70-99 [facility] Serum or plasma alanine kelley otransferase (ALT) measurementOrdered By: Ramone Smiley on 01-19-2025 ALT [Catalytic activity/Vol] 18 U/L <35 [facility] Serum or plasma albumin melanie urement (mass/volume)Ordered By: Ramone Smiley on 01-19-2025 Albumin [Mass/Vol] 3.4 g/dL 3.4-4.8 [facility] Serum or plasma albumin/glob ulin mass ratioOrdered By: Ramone Smiley on 01-19-2025 Albumin/Globulin [Mass ratio] 0.9 {ratio} 0.9-2.4 [facility] Serum or plasma alkaline lissa sphatase measurementOrdered By: Ramone Smiley on 01-19-2025 ALP [Catalytic activity/Vol] 123 U/L High 35-104 [facility] Serum or plasma calcium melanie urement (mass/volume)Ordered By: Ramone Smiley on 01-19-2025 Calcium [Mass/Vol] 10.4 mg/dL 7.6-11.0 [facility] Serum or plasma urea nitroge n measurement (mass/volume)Ordered By: Ramone Smiley on 01-19-2025 Urea nitrogen [Mass/Vol] 8 mg/dL 4-19 [facility] Sodium levelOrdered By: Ramone Smiley on 01-19-2025 Sodium [Moles/Vol] 137 mmol/L 133-145 [facility] Total proteinOrdered By: Lilliam Smiley on 01-19-2025 Protein [Mass/Vol] 7.3 g/dL 5.9-8.4 [facility] White blood cell (WBC) count Ordered By: Ramone Smiley on 01-19-2025 WBC (Bld) [#/Vol] 8.3 10*3/uL 4.4-11.0 [facility] 12 Lead EKGon 01-15-2025 12 Lead EKG Normal [facility] Absolute lymphocyte countOrd ered By: Jeevan Yoder on 01-15-2025 Lymphocytes Auto (Unsp spec) [#/Vol] 1.92 10*3/uL 0.83-4.51 [facility] Absolute neutrophil countOrd ered By: Jeevan Yoder on 01-15-2025 Neutrophils (Bld) [#/Vol] 7.7 10*3/uL 2.0-7.7 [facility] Anion gap in Serum or Plasma Ordered By: Jeevan Yoder on 01-15-2025 Anion gap [Moles/Vol] 11 mmol/L 5-15 [facility] Automated lymphocyte count a s percentage of total leukocytesOrdered By: Jeevan Yoder on 01-15-2025 Lymphocytes/100 WBC Auto (Unsp spec) 18.1 % Low 19-41 [facility] BUN/creatinine ratioOrdered By: Jeevan Yoder on 01-15-2025 Urea nitrogen/Creatinine [Mass ratio] 16.6 mg/mg 10- [facility] Basic Metabolic Profile (BMP )on 01-15-2025 BUN/CRE 16.6 RATIO Normal - [facility] Comment on above: Performed By: #### L 501.4021, L500.2500, L100.0100 ####[facility] [address] [place], [address] Calcium [Mass/Vol] 9.6 mg/dL Normal 7.6-11.0 [facility] Comment on above: Performed By: #### L 501.4021, L500.2500, L100.0100 ####[facility] [address] [place], [address] Chloride [Moles/Vol] 102 mmol/L Normal 98-108 [facility] Comment on above: Performed By: #### L 501.4021, L500.2500, L100.0100 ####[facility] [address] [place], [address] CO2 [Moles/Vol] 25.0 mmol/L Normal 21.0-32.0 [facility] Comment on above: Performed By: #### L 501.4021, L500.2500, L100.0100 ####[facility] [address] [place], [address] Creatinine [Mass/Vol] 0.92 mg/dL Normal 0.70-1.20 [facility] Comment on above: Performed By: #### L 501.4021, L500.2500, L100.0100 ####[facility] [address] [place], [address] ECRCL 48.84 ml/min Low 50-250 [facility] Comment on above: Performed By: #### L 501.4021, L500.2500, L100.0100 ####[facility] [address] [place], [address] GAP 11 Normal 5-15 [facility] Comment on above: Performed By: #### L 501.4021, L500.2500, L100.0100 ####[facility] [address] [place], [address] GFR/1.73 sq M.predicted among non-blacks MDRD (S/P/Bld) [Vol rate/Area] 63 mL/min/{1.73_m2} Normal >60 [facility] Comment on above: Result Comment: mL/m in/1.73m2 CKD-EPI Creatinine Equation (2020) Performed By: #### L 501.4021, L500.2500, L100.0100 ####[facility] [address] [place], [address] Glucose [Mass/Vol] 144 mg/dL High 70-99 [facility] Comment on above: Performed By: #### L 501.4021, L500.2500, L100.0100 ####[facility] [address] [place], [address] Potassium [Moles/Vol] 3.7 mmol/L Normal 3.3-5.1 [facility] Comment on above: Performed By: #### L 501.4021, L500.2500, L100.0100 ####[facility] [address] [place], [address] Sodium [Moles/Vol] 138 mmol/L Normal 133-145 [facility] Comment on above: Performed By: #### L 501.4021, L500.2500, L100.0100 ####[facility] [address] [place], [address] Urea nitrogen [Mass/Vol] 15 mg/dL Normal 4-19 [facility] Comment on above: Performed By: #### L 501.4021, L500.2500, L100.0100 ####[facility] [address] [place], [address] Basophil percentageOrdered B y: Jeevan Yoder on 01-15-2025 Basophils/100 WBC (Bld) 0.3 % 0-1 [facility] CBC W/Diff, Automatedon 12-29 Absolute Lymph 1.92 X10 3/uL Normal 0.83-4.51 [facility] Comment on above: Performed By: #### L 501.4021, L500.2500, L100.0100 ####[facility] [address] [place], [address] Absolute Neut 7.7 X10 3/uL Normal 2.0-7.7 [facility] Comment on above: Performed By: #### L 501.4021, L500.2500, L100.0100 ####[facility] [address] [place], [address] Basophils/100 WBC (Bld) 0.3 % Normal 0-1 [facility] Comment on above: Performed By: #### L 501.4021, L500.2500, L100.0100 ####[facility] [address] [place], [address] Eosinophils/100 WBC (Bld) 1.6 % Normal 0-5 [facility] Comment on above: Performed By: #### L 501.4021, L500.2500, L100.0100 ####[facility] [address] [place], [address] Erythrocyte distribution width (RBC) [Ratio] 16.3 % High 11.6-14.6 [facility] Comment on above: Performed By: #### L 501.4021, L500.2500, L100.0100 ####[facility] [address] [place], [address] Hematocrit (Bld) [Volume fraction] 34.3 % Low 37-47 [facility] Comment on above: Performed By: #### L 501.4021, L500.2500, L100.0100 ####[facility] [address] [place], [address] Hemoglobin (Bld) [Mass/Vol] 11.0 g/dL Low 12.0-15.0 [facility] Comment on above: Performed By: #### L 501.4021, L500.2500, L100.0100 ####[facility] [address] [place], [address] IG% 0.400 Normal 0.0-0.9 [facility] Comment on above: Result Comment: IG% - Immature Granulocytes (promyelocytes, myelocytes andmetamyelocytes) > 1% indicates that a LEFT SHIFT is Present. Performed By: #### L 501.4021, L500.2500, L100.0100 ####[facility] [address] [place], [address] Lymphocytes/100 WBC (Bld) 18.1 % Low 19-41 [facility] Comment on above: Performed By: #### L 501.4021, L500.2500, L100.0100 ####[facility] [address] [place], [address] MCH (RBC) [Entitic mass] 27.8 pg Normal 27.0-32.0 [facility] Comment on above: Performed By: #### L 501.4021, L500.2500, L100.0100 ####[facility] [address] [place], [address] MCHC (RBC) [Mass/Vol] 32.1 g/dL Normal 32-36 [facility] Comment on above: Performed By: #### L 501.4021, L500.2500, L100.0100 ####[facility] [address] [place], [address] MCV (RBC) [Entitic vol] 86.6 fL Normal 81-99 [facility] Comment on above: Performed By: #### L 501.4021, L500.2500, L100.0100 ####[facility] [address] [place], [address] Monocytes/100 WBC (Bld) 6.9 % Normal 0-10 [facility] Comment on above: Performed By: #### L 501.4021, L500.2500, L100.0100 ####[facility] [address] [place], [address] Neutrophils/100 WBC (Bld) 72.7 % High 47-70 [facility] Comment on above: Performed By: #### L 501.4021, L500.2500, L100.0100 ####[facility] [address] [place], [address] Nucleated RBC (Bld) [#/Vol] 0 10*3/uL Normal 0-5 [facility] Comment on above: Performed By: #### L 501.4021, L500.2500, L100.0100 ####[facility] [address] [place], [address] Platelet mean volume (Bld) [Entitic vol] 10.5 fL Normal 6.2-12.0 [facility] Comment on above: Performed By: #### L 501.4021, L500.2500, L100.0100 ####[facility] [address] [place], [address] Platelets (Bld) [#/Vol] 256 10*3/uL Normal 150-450 [facility] Comment on above: Performed By: #### L 501.4021, L500.2500, L100.0100 ####[facility] [address] [place], [address] RBC (Bld) [#/Vol] 3.96 10*6/uL Low 4.2-5.4 [facility] Comment on above: Performed By: #### L 501.4021, L500.2500, L100.0100 ####[facility] [address] [place], [address] RDW SD 50.8 fl High 35.1-43.9 [facility] Comment on above: Performed By: #### L 501.4021, L500.2500, L100.0100 ####[facility] [address] [place], [address] WBC (Bld) [#/Vol] 10.6 10*3/uL Normal 4.4-11.0 [facility] Comment on above: Performed By: #### L 501.4021, L500.2500, L100.0100 ####[facility] [address] [place], [address] Carbon dioxide, total [Moles /volume] in Central venous bloodOrdered By: Jeevan Yoder on 01-15-2025 CO2 [Moles/Vol] 25.0 mmol/L 21.0-32.0 [facility] Chest PA and Lateralon 01-15 Chest PA and Lateral Normal [facility] Chloride assayOrdered By: Kenny Yoder on 01-15-2025 Chloride [Moles/Vol] 102 mmol/L 98-108 [facility] Emergency Department Summary on 01-15-2025 Emergency Department Summary Normal [facility] Eosinophil percentageOrdered By: Jeevan Yoder on 01-15-2025 Eosinophils/100 WBC (Bld) 1.6 % 0-5 [facility] Erythrocyte distribution wid th ratioOrdered By: Jeevan Yoder on 01-15-2025 Erythrocyte distribution width (RBC) [Ratio] 16.3 % High 11.6-14.6 [facility] Erythrocyte distribution wid th standard deviationOrdered By: Jeevan Yoder on 01-15-2025 Erythrocyte distribution width (RBC) [Ratio] 50.8 fl High 35.1-43.9 [facility] Glomerular filtration rate ( GFR) estimation/1.73 sq m using serum, plasma, or whole bOrdered By: Jeevan Yoder on 01-15-2025 GFR/1.73 sq M.predicted among non-blacks MDRD (S/P/Bld) [Vol rate/Area] 63 mL/min/{1.73_m2} >60 [facility] Comment on above: mL/min/1.73m2 CKD-EP I Creatinine Equation (2020) Hematocrit Auto (Bld) [Volum e fraction]Ordered By: Jeevan Yoder on 01-15-2025 Hematocrit (Bld) [Volume fraction] 34.3 % Low 37-47 [facility] Hemoglobin measurementOrdere d By: Jeevan Yoder on 01-15-2025 Hemoglobin (Bld) [Mass/Vol] 11.0 g/dL Low 12.0-15.0 [facility] Immature granulocytes/100 WB C Auto (Bld)Ordered By: Jeevan Yoder on 01-15-2025 Immature granulocytes/100 WBC (Bld) 0.400 % 0.0-0.9 [facility] Comment on above: IG% - Immature Granu locytes (promyelocytes, myelocytes and metamyelocytes) > 1% indicates that a LEFT SHIFT is Present. L499.0042on 01-15-2025 Trop T High Sen 46 ng/L High <=14 [facility] Comment on above: Performed By: #### L 499.0042 ####[facility] [address] [place], [address] L499.0043on 01-15-2025 Trop T High Sen Normal <=14 [facility] Comment on above: Result Comment: DEP ED Performed By: #### L 499.0043 ####[facility] [address] [place], [address] L501.4021on 01-15-2025 Trop T High Sen 46 ng/L High <=14 [facility] Comment on above: Performed By: #### L 501.4021, L500.2500, L100.0100 ####[facility] [address] [place], [address] L503.7505on 01-15-2025 Natriuretic peptide B (Bld) [Mass/Vol] 4224 pg/mL High <=1800 [facility] Comment on above: Result Comment: Hear t Failure Unlikely: < 300 pg/mLHeart Failure Likely< 50 Years: > 450 pg/mL50-75 Years: > 900 pg/mL>75 Years: > 1800 pg/mL Performed By: #### L 503.7505 ####[facility] [address] [place], [address] MCV (mean corpuscular volume ) determinationOrdered By: Jeevan Yoder on 01-15-2025 MCV (RBC) [Entitic vol] 86.6 fL 81-99 [facility] Mean corpuscular hemoglobin (MCH) determinationOrdered By: Jeevan Yoder on 01-15-2025 MCH (RBC) [Entitic mass] 27.8 pg 27.0-32.0 [facility] Mean corpuscular hemoglobin concentration (MCHC) determinationOrdered By: Jeevan Yoder on 01-15-2025 MCHC (RBC) [Mass/Vol] 32.1 g/dL 32-36 [facility] Mean platelet volume determi nationOrdered By: Jeevan Yoder on 01-15-2025 Platelet mean volume (Bld) [Entitic vol] 10.5 fL 6.2-12.0 [facility] Monocyte percentageOrdered B y: Jeevan Yoder on 01-15-2025 Monocytes/100 WBC (Bld) 6.9 % 0-10 [facility] Natriuretic peptide.B prohor hayley N-Terminal [Mass/volume] in Serum or PlasmaOrdered By: Jeevan Yoder on 01-15-2025 Natriuretic peptide.B prohormone N-Terminal [Mass/Vol] 4224 pg/mL High <1800 [facility] Comment on above: Heart Failure Unlike ly: < 300 pg/mLHeart Failure Likely< 50 Years: > 450 pg/mL50-75 Years: > 900 pg/mL>75 Years: > 1800 pg/mL Neutrophil percentageOrdered By: Jeevan Yoder on 01-15-2025 Neutrophils/100 WBC (Bld) 72.7 % High 47-70 [facility] Nucleated red blood cell per centageOrdered By: Jeevan Yoder on 01-15-2025 Nucleated RBC/100 WBC (Bld) [Ratio] 0 % 0-5 [facility] Platelet countOrdered By: Kenny Yoder on 01-15-2025 Platelets (Bld) [#/Vol] 256 10*3/uL 150-450 [facility] Potassium measurement (mass/ volume)Ordered By: Jeevan Yoder on 01-15-2025 Potassium (Unsp spec) [Mass/Vol] 3.7 mmol/L 3.3-5.1 [facility] RBC Auto (Bld) [#/Vol]Ordere d By: Jeevan Yoder on 01-15-2025 RBC (Bld) [#/Vol] 3.96 10*6/uL Low 4.2-5.4 [facility] Serum creatinine measurement (mass/volume)Ordered By: Jeevan Yoder on 01-15-2025 Creatinine [Mass/Vol] 0.92 mg/dL 0.70-1.20 [facility] Serum glucose measurement (m ass/volume)Ordered By: Jeevan Yoder on 01-15-2025 Glucose [Mass/Vol] 144 mg/dL High 70-99 [facility] Serum or plasma calcium melanie urement (mass/volume)Ordered By: Jeevan Yoder on 01-15-2025 Calcium [Mass/Vol] 9.6 mg/dL 7.6-11.0 [facility] Serum or plasma urea nitroge n measurement (mass/volume)Ordered By: Jeevan Yoder on 01-15-2025 Urea nitrogen [Mass/Vol] 15 mg/dL 4-19 [facility] Sodium levelOrdered By: Marcelino Yoder on 01-15-2025 Sodium [Moles/Vol] 138 mmol/L 133-145 [facility] Troponin T.cardiac [Mass/vol ume] in Serum or Plasma by High sensitivity methodOrdered By: Jeevan Yoder on 01-15-2025 Troponin T.cardiac High sensitivity method [Mass/Vol] 46 ng/L High <14 [facility] Troponin T.cardiac High sensitivity method [Mass/Vol] 46 ng/L High <14 [facility] White blood cell (WBC) count Ordered By: Jeevan Yoder on 01-15-2025 WBC (Bld) [#/Vol] 10.6 10*3/uL 4.4-11.0 [facility] 12 Lead EKGon 01-07-2025 12 Lead EKG Normal [facility] Absolute lymphocyte countOrd ered By: Etahn Suarez on 01-07-2025 Lymphocytes Auto (Unsp spec) [#/Vol] 2.89 10*3/uL 0.83-4.51 [facility] Absolute neutrophil countOrd ered By: Ethan Suarez on 01-07-2025 Neutrophils (Bld) [#/Vol] 5.3 10*3/uL 2.0-7.7 [facility] Anion gap in Serum or Plasma Ordered By: Ethan Suarez on 01-07-2025 Anion gap [Moles/Vol] 11 mmol/L 01-12 [facility] Automated lymphocyte count a s percentage of total leukocytesOrdered By: Ethan Suarez on 01-07-2025 Lymphocytes/100 WBC Auto (Unsp spec) 31.8 % [facility] BUN/creatinine ratioOrdered By: Ethan Suarez on 01-07-2025 Urea nitrogen/Creatinine [Mass ratio] 15.5 mg/mg 06-19 [facility] Basic Metabolic Profile (BMP )on 01-07-2025 BUN/CRE 15.5 RATIO Normal 06-19 [facility] Comment on above: Performed By: #### L 500.2500, L100.0100 ####[facility] [address] [place], [address] Calcium [Mass/Vol] 10.3 mg/dL Normal 7.6-11.0 [facility] Comment on above: Performed By: #### L 500.2500, L100.0100 ####[facility] [address] [place], [address] Chloride [Moles/Vol] 99 mmol/L Normal 98-108 [facility] Comment on above: Performed By: #### L 500.2500, L100.0100 ####[facility] [address] [place], [address] CO2 [Moles/Vol] 22.5 mmol/L Normal 21.0-32.0 [facility] Comment on above: Performed By: #### L 500.2500, L100.0100 ####[facility] [address] [place], [address] Creatinine [Mass/Vol] 0.90 mg/dL Normal 0.70-1.20 [facility] Comment on above: Performed By: #### L 500.2500, L100.0100 ####[facility] [address] [place], [address] ECRCL 49.31 ml/min Low 50-250 [facility] Comment on above: Performed By: #### L 500.2500, L100.0100 ####[facility] [address] [place], [address] GAP 11 Normal 5-15 [facility] Comment on above: Performed By: #### L 500.2500, L100.0100 ####[facility] [address] [place], [address] GFR/1.73 sq M.predicted among non-blacks MDRD (S/P/Bld) [Vol rate/Area] 64 mL/min/{1.73_m2} Normal >60 [facility] Comment on above: Result Comment: mL/m in/1.73m2 CKD-EPI Creatinine Equation (2020) Performed By: #### L 500.2500, L100.0100 ####[facility] [address] [place], [address] Glucose [Mass/Vol] 321 mg/dL High 70-99 [facility] Comment on above: Performed By: #### L 500.2500, L100.0100 ####[facility] [address] [place], [address] Potassium [Moles/Vol] 3.8 mmol/L Normal 3.3-5.1 [facility] Comment on above: Result Comment: Hemo lysis present, Results??could be affected.?? Performed By: #### L 500.2500, L100.0100 ####[facility] [address] [place], [address] Sodium [Moles/Vol] 133 mmol/L Normal 133-145 [facility] Comment on above: Performed By: #### L 500.2500, L100.0100 ####[facility] [address] [place], [address] Urea nitrogen [Mass/Vol] 14 mg/dL Normal 4-19 [facility] Comment on above: Performed By: #### L 500.2500, L100.0100 ####[facility] [address] [place], [address] Basophil percentageOrdered B y: Ethan Suarez on 01-07-2025 Basophils/100 WBC (Bld) 0.5 % 0-1 [facility] Bedside Glucoseon 01-07-2025 FINGERSTICK GLU 316 mg/dL High 74-106 [facility] Comment on above: Result Comment: KATARINA GARY OF PATIENT CARE PER NURSING PROTOCOL Performed By: #### L 501.080 ####[facility] [address] [place], [address] CBC W/Diff, Automatedon 12-29 0 Absolute Lymph 2.89 X10 3/uL Normal 0.83-4.51 [facility] Comment on above: Performed By: #### L 500.2500, L100.0100 ####[facility] [address] [place], [address] Absolute Neut 5.3 X10 3/uL Normal 2.0-7.7 [facility] Comment on above: Performed By: #### L 500.2500, L100.0100 ####[facility] [address] [place], [address] Basophils/100 WBC (Bld) 0.5 % Normal 0-1 [facility] Comment on above: Performed By: #### L 500.2500, L100.0100 ####[facility] [address] [place], [address] Eosinophils/100 WBC (Bld) 1.9 % Normal 0-5 [facility] Comment on above: Performed By: #### L 500.2500, L100.0100 ####[facility] [address] [place], [address] Erythrocyte distribution width (RBC) [Ratio] 15.7 % High 11.6-14.6 [facility] Comment on above: Performed By: #### L 500.2500, L100.0100 ####[facility] [address] [place], [address] Hematocrit (Bld) [Volume fraction] 34.0 % Low 37-47 [facility] Comment on above: Performed By: #### L 500.2500, L100.0100 ####[facility] [address] [place], [address] Hemoglobin (Bld) [Mass/Vol] 10.5 g/dL Low 12.0-15.0 [facility] Comment on above: Performed By: #### L 500.2500, L100.0100 ####[facility] [address] [place], [address] IG% 0.200 Normal 0.0-0.9 [facility] Comment on above: Result Comment: IG% - Immature Granulocytes (promyelocytes, myelocytes andmetamyelocytes) > 1% indicates that a LEFT SHIFT is Present. Performed By: #### L 500.2500, L100.0100 ####[facility] [address] [place], [address] Lymphocytes/100 WBC (Bld) 31.8 % Normal 19-41 [facility] Comment on above: Performed By: #### L 500.2500, L100.0100 ####[facility] [address] [place], [address] MCH (RBC) [Entitic mass] 26.9 pg Low 27.0-32.0 [facility] Comment on above: Performed By: #### L 500.2500, L100.0100 ####[facility] [address] [place], [address] MCHC (RBC) [Mass/Vol] 30.9 g/dL Low 32-36 [facility] Comment on above: Performed By: #### L 500.2500, L100.0100 ####[facility] [address] [place], [address] MCV (RBC) [Entitic vol] 87.0 fL Normal 81-99 [facility] Comment on above: Performed By: #### L 500.2500, L100.0100 ####[facility] [address] [place], [address] Monocytes/100 WBC (Bld) 7.6 % Normal 0-10 [facility] Comment on above: Performed By: #### L 500.2500, L100.0100 ####[facility] [address] [place], [address] Neutrophils/100 WBC (Bld) 58.0 % Normal 47-70 [facility] Comment on above: Performed By: #### L 500.2500, L100.0100 ####[facility] [address] [place], [address] Nucleated RBC (Bld) [#/Vol] 0 10*3/uL Normal 0-5 [facility] Comment on above: Performed By: #### L 500.2500, L100.0100 ####[facility] [address] [place], [address] Platelet mean volume (Bld) [Entitic vol] 11.1 fL Normal 6.2-12.0 [facility] Comment on above: Performed By: #### L 500.2500, L100.0100 ####[facility] [address] [place], [address] Platelets (Bld) [#/Vol] 237 10*3/uL Normal 150-450 [facility] Comment on above: Performed By: #### L 500.2500, L100.0100 ####[facility] [address] [place], [address] RBC (Bld) [#/Vol] 3.91 10*6/uL Low 4.2-5.4 [facility] Comment on above: Performed By: #### L 500.2500, L100.0100 ####[facility] [address] [place], [address] RDW SD 49.4 fl High 35.1-43.9 [facility] Comment on above: Performed By: #### L 500.2500, L100.0100 ####[facility] [address] [place], [address] WBC (Bld) [#/Vol] 9.1 10*3/uL Normal 4.4-11.0 [facility] Comment on above: Performed By: #### L 500.2500, L100.0100 ####[facility] [address] [place], [address] Carbon dioxide, total [Moles /volume] in Central venous bloodOrdered By: Ethan Suarez on 01-07-2025 CO2 [Moles/Vol] 22.5 mmol/L 21.0-32.0 [facility] Chest PA and Lateralon 01-07 Chest PA and Lateral Normal [facility] Chloride assayOrdered By: Albaro Suarez on 01-07-2025 Chloride [Moles/Vol] 99 mmol/L 98-108 [facility] Emergency Department Summary on 01-07-2025 Emergency Department Summary Normal [facility] Eosinophil percentageOrdered By: Ethan Suarez on 01-07-2025 Eosinophils/100 WBC (Bld) 1.9 % 0-5 [facility] Erythrocyte distribution wid th ratioOrdered By: Ethan Suarez on 01-07-2025 Erythrocyte distribution width (RBC) [Ratio] 15.7 % High 11.6-14.6 [facility] Erythrocyte distribution wid th standard deviationOrdered By: Ethan Suarez on 01-07-2025 Erythrocyte distribution width (RBC) [Ratio] 49.4 fl High 35.1-43.9 [facility] Glomerular filtration rate ( GFR) estimation/1.73 sq m using serum, plasma, or whole bOrdered By: Ethan Suarez on 01-07-2025 GFR/1.73 sq M.predicted among non-blacks MDRD (S/P/Bld) [Vol rate/Area] 64 mL/min/{1.73_m2} >60 [facility] Comment on above: mL/min/1.73m2 CKD-EP I Creatinine Equation (2020) [facility] deOrdered By: Ethan Suarez on 01-07-2025 Glucose [Mass/Vol] 316 mg/dL High 74-106 [facility] Comment on above: MANAGEMENT OF PATIEN T CARE PER NURSING PROTOCOL Hematocrit Auto (Bld) [Volum e fraction]Ordered By: Ethan Suarez on 01-07-2025 Hematocrit (Bld) [Volume fraction] 34.0 % Low 37-47 [facility] Hemoglobin measurementOrdere d By: Ethan Suarez on 01-07-2025 Hemoglobin (Bld) [Mass/Vol] 10.5 g/dL Low 12.0-15.0 [facility] Immature granulocytes/100 WB C Auto (Bld)Ordered By: Ethan Suarez on 01-07-2025 Immature granulocytes/100 WBC (Bld) 0.200 % 0.0-0.9 [facility] Comment on above: IG% - Immature Granu locytes (promyelocytes, myelocytes and metamyelocytes) > 1% indicates that a LEFT SHIFT is Present. Influenza virus A and B and SARS-CoV-2 (COVID-19) and Respiratory syncytial virus RNAOrdered By: Ethan Suarez on 01-07-2025 SARS-CoV-2 (COVID-19) RNA BEBETO+probe Ql (Unsp spec) [facility] M100.678on 01-07-2025 M100.678 SARS-CoV-2 (COVID 19 ) Negative INFLUENZA A Negative INFLUENZA B Negative RSV PCR Negative Normal [facility] Comment on above: Performed By: #### M [id number] ####[facility] [address] [place], [place], [id number] MCV (mean corpuscular volume ) determinationOrdered By: Ethan Suarez on 01-07-2025 MCV (RBC) [Entitic vol] 87.0 fL 81-99 [facility] Mean corpuscular hemoglobin (MCH) determinationOrdered By: Ethan Suarez on 01-07-2025 MCH (RBC) [Entitic mass] 26.9 pg Low 27.0-32.0 [facility] Mean corpuscular hemoglobin concentration (MCHC) determinationOrdered By: Ethan Suarez on 01-07-2025 MCHC (RBC) [Mass/Vol] 30.9 g/dL Low 32-36 [facility] Mean platelet volume determi nationOrdered By: Ethan Suarez on 01-07-2025 Platelet mean volume (Bld) [Entitic vol] 11.1 fL 6.2-12.0 [facility] Monocyte percentageOrdered B y: Ethan Suarez on 01-07-2025 Monocytes/100 WBC (Bld) 7.6 % 0-10 [facility] Neutrophil percentageOrdered By: Ethan Suarez on 01-07-2025 Neutrophils/100 WBC (Bld) 58.0 % 47-70 [facility] Nucleated red blood cell per centageOrdered By: Ethan Suarez on 01-07-2025 Nucleated RBC/100 WBC (Bld) [Ratio] 0 % 0-5 [facility] Platelet countOrdered By: Albaro Suarez on 01-07-2025 Platelets (Bld) [#/Vol] 237 10*3/uL 150-450 [facility] Potassium measurement (mass/ volume)Ordered By: Ethan Suarez on 01-07-2025 Potassium (Unsp spec) [Mass/Vol] 3.8 mmol/L 3.3-5.1 [facility] Comment on above: Hemolysis present, R esults could be affected. RBC Auto (Bld) [#/Vol]Ordere d By: Ethan Suarez on 01-07-2025 RBC (Bld) [#/Vol] 3.91 10*6/uL Low 4.2-5.4 [facility] Serum creatinine measurement (mass/volume)Ordered By: Ethan Suarez on 01-07-2025 Creatinine [Mass/Vol] 0.90 mg/dL 0.70-1.20 [facility] Serum glucose measurement (m ass/volume)Ordered By: Ethan Suarez on 01-07-2025 Glucose [Mass/Vol] 321 mg/dL High 70-99 [facility] Serum or plasma calcium melanie urement (mass/volume)Ordered By: Ethan Suraez on 01-07-2025 Calcium [Mass/Vol] 10.3 mg/dL 7.6-11.0 [facility] Serum or plasma urea nitroge n measurement (mass/volume)Ordered By: Ethan Suarez on 01-07-2025 Urea nitrogen [Mass/Vol] 14 mg/dL 4-19 [facility] Sodium levelOrdered By: Ethan Suarez on 01-07-2025 Sodium [Moles/Vol] 133 mmol/L 133-145 [facility] White blood cell (WBC) count Ordered By: Ethan Suarez on 01-07-2025 WBC (Bld) [#/Vol] 9.1 10*3/uL 4.4-11.0 [facility] Inital Evaluation (1) - PTon 10-13-2024 Inital Evaluation (1) - PT Normal [facility] Albumin to globulin ratioOrd ered By: Ramone Smiley on 09-27-2024 Albumin/Globulin [Mass ratio] 0.6 {ratio} Low 0.9-2.4 [facility] Bilirubin, totalOrdered By: Ramone Smiley on 09-27-2024 Bilirubin [Mass/Vol] 0.20 mg/dL 0.20-1.00 [facility] Comment on above: For patients on eltr ombopag therapy, use of Dimension [place] TBIL is not recommended. Blood urea nitrogen (BUN)/cr eatinine ratioOrdered By: Ramone Smiley on 09-27-2024 Urea nitrogen/Creatinine [Mass ratio] 12.7 mg/mg 10-20 [facility] CBC-Complete Blood Cnt No Di ffon 09-27-2024 Erythrocyte distribution width (RBC) [Ratio] 15.9 % High 11.6-14.6 [facility] Comment on above: Order Comment: Order Date: 09/27/24Order Info: [id number] - CBC Performed By: #### L 500.4050, L100.0500 ####[facility] [address] [place], [address] Hematocrit (Bld) [Volume fraction] 35.7 % Low 37-47 [facility] Comment on above: Order Comment: Order Date: 09/27/24Order Info: [id number] - CBC Performed By: #### L 500.4050, L100.0500 ####[facility] [address] [place], [address] Hemoglobin (Bld) [Mass/Vol] 11.0 g/dL Low 12.0-15.0 [facility] Comment on above: Order Comment: Order Date: 09/27/24Order Info: [id number] - CBC Performed By: #### L 500.4050, L100.0500 ####[facility] [address] [place], [address] MCH (RBC) [Entitic mass] 25.8 pg Low 27.0-32.0 [facility] Comment on above: Order Comment: Order Date: 09/27/24Order Info: [id number] - CBC Performed By: #### L 500.4050, L100.0500 ####[facility] [address] [place], [address] MCHC (RBC) [Mass/Vol] 30.8 g/dL Low 32-36 [facility] Comment on above: Order Comment: Order Date: 09/27/24Order Info: [id number] - CBC Performed By: #### L 500.4050, L100.0500 ####[facility] [address] [place], [address] MCV (RBC) [Entitic vol] 83.6 fL Normal 81-99 [facility] Comment on above: Order Comment: Order Date: 09/27/24Order Info: [id number] - CBC Performed By: #### L 500.4050, L100.0500 ####[facility] [address] [place], [address] Platelet mean volume (Bld) [Entitic vol] 11.3 fL Normal 6.2-12.0 [facility] Comment on above: Order Comment: Order Date: 09/27/24Order Info: [id number] - CBC Performed By: #### L 500.4050, L100.0500 ####[facility] [address] [place], [address] Platelets (Bld) [#/Vol] 287 10*3/uL Normal 150-450 [facility] Comment on above: Order Comment: Order Date: 09/27/24Order Info: [id number] - CBC Performed By: #### L 500.4050, L100.0500 ####[facility] [address] [place], [address] RBC (Bld) [#/Vol] 4.27 10*6/uL Normal 4.2-5.4 [facility] Comment on above: Order Comment: Order Date: 09/27/24Order Info: [id number] - CBC Performed By: #### L 500.4050, L100.0500 ####[facility] [address] [place], [address] RDW SD 47.4 fl High 35.1-43.9 [facility] Comment on above: Order Comment: Order Date: 09/27/24Order Info: [id number] - CBC Performed By: #### L 500.4050, L100.0500 ####[facility] [address] [place], [address] WBC (Bld) [#/Vol] 8.6 10*3/uL Normal 4.4-11.0 [facility] Comment on above: Order Comment: Order Date: 09/27/24Order Info: [id number] - CBC Performed By: #### L 500.4050, L100.0500 ####[facility] [address] [place], [address] Carbon dioxide measurementOr dered By: Ramone Smiley on 09-27-2024 CO2 [Moles/Vol] 28.0 mmol/L 21.0-32.0 [facility] Chloride measurementOrdered By: Ramone Smiley on 09-27-2024 Chloride [Moles/Vol] 101 mmol/L 98-107 [facility] Comprehensive Metabolic Prof ilon 09-27-2024 Albumin [Mass/Vol] 3.0 g/dL Low 3.2-5.0 [facility] Comment on above: Order Comment: Order Date: 09/27/24Order Info: [id number] - CMPOrder Info: [id number] - CRE Performed By: #### L 500.4050, L100.0500 ####[facility] [address] [place], [address] Albumin/Globulin [Mass ratio] 0.6 {ratio} Low 0.9-2.4 [facility] Comment on above: Order Comment: Order Date: 09/27/24Order Info: [id number] - CMPOrder Info: [id number] - CRE Performed By: #### L 500.4050, L100.0500 ####[facility] [address] [place], [address] ALK P 145 U/L High 45-117 [facility] Comment on above: Order Comment: Order Date: 09/27/24Order Info: [id number] - CMPOrder Info: [id number] - CRE Performed By: #### L 500.4050, L100.0500 ####[facility] [address] [place], [address] ALT [Catalytic activity/Vol] 16 U/L Normal 13-56 [facility] Comment on above: Order Comment: Order Date: 09/27/24Order Info: [id number] - CMPOrder Info: [id number] - CRE Performed By: #### L 500.4050, L100.0500 ####[facility] [address] [place], [address] AST [Catalytic activity/Vol] 16 U/L Normal 15-37 [facility] Comment on above: Order Comment: Order Date: 09/27/24Order Info: [id number] - CMPOrder Info: [id number] - CRE Performed By: #### L 500.4050, L100.0500 ####[facility] [address] [place], [address] Bilirubin [Mass/Vol] 0.20 mg/dL Normal 0.20-1.00 [facility] Comment on above: Order Comment: Order Date: 09/27/24Order Info: 07-1 - CMPOrder Info: [id number]- - CRE Result Comment: For patients on eltrombopag therapy, use of Dimension [place] TBIL is not recommended. Performed By: #### L 500.4050, L100.0500 ####[facility] [address] [place], [address] BUN/CRE 12.7 RATIO Normal 10-20 [facility] Comment on above: Order Comment: Order Date: 09/27/24Order Info: [id number]- - CMPOrder Info: [id number] - CRE Performed By: #### L 500.4050, L100.0500 ####[facility] [address] [place], [address] CA,Total 11.0 mg/dL High 8.5-10.1 [facility] Comment on above: Order Comment: Order Date: 09/27/24Order Info: [id number] - CMPOrder Info: [id number] - CRE Performed By: #### L 500.4050, L100.0500 ####[facility] [address] [place], [address] Chloride [Moles/Vol] 101 mmol/L Normal 98-107 [facility] Comment on above: Order Comment: Order Date: 09/27/24Order Info: [id number] - CMPOrder Info: [id number] - CRE Performed By: #### L 500.4050, L100.0500 ####[facility] [address] [place], [address] CO2 [Moles/Vol] 28.0 mmol/L Normal 21.0-32.0 [facility] Comment on above: Order Comment: Order Date: 09/27/24Order Info: [id number]- - CMPOrder Info: [id number]- - CRE Performed By: #### L 500.4050, L100.0500 ####[facility] [address] [place], [address] Creatinine [Mass/Vol] 0.86 mg/dL Normal 0.55-1.02 [facility] Comment on above: Order Comment: Order Date: 09/27/24Order Info: 07- - CMPOrder Info: [id number]- - CRE Result Comment: The validity of the calculated GFR GFRAA in patients over70 years has not been determined. Clinical correlation isessential. Performed By: #### L 500.4050, L100.0500 ####[facility] [address] [place], [address] EST GFR - AA 81 mL/min Normal >60 [facility] Comment on above: Order Comment: Order Date: 09/27/24Order Info: [id number]- - CMPOrder Info: [id number]- - CRE Result Comment: Afri can Swazi GFR Calc Performed By: #### L 500.4050, L100.0500 ####[facility] [address] [place], [address] GAP 8 Normal 5-15 [facility] Comment on above: Order Comment: Order Date: 09/27/24Order Info: [id number] - CMPOrder Info: [id number]- - CRE Performed By: #### L 500.4050, L100.0500 ####[facility] [address] [place], [address] GFR/1.73 sq M.predicted among non-blacks MDRD (S/P/Bld) [Vol rate/Area] 67 mL/min/{1.73_m2} Normal >60 [facility] Comment on above: Order Comment: Order Date: 09/27/24Order Info: [id number] - CMPOrder Info: [id number] - CRE Result Comment: Non- GFR Calc Performed By: #### L 500.4050, L100.0500 ####[facility] [address] [place], [place], [address] Globulin (S) [Mass/Vol] 5.0 g/dL High 2.2-4.2 [facility] Comment on above: Order Comment: Order Date: 09/27/24Order Info: [id number] - CMPOrder Info: 014- - CRE Performed By: #### L 500.4050, L100.0500 ####[facility] [address] [place], [address] Glucose [Mass/Vol] 144 mg/dL High 74-106 [facility] Comment on above: Order Comment: Order Date: 09/27/24Order Info: [id number] - CMPOrder Info: [id number] - CRE Result Comment: Fast ing Glucose result greater than or equal to 126 mg/dLsuggests DIABETES MELLITUS per A.D.A. criteria. Performed By: #### L 500.4050, L100.0500 ####[facility] [address] [place], [address] Potassium [Moles/Vol] 3.5 mmol/L Normal 3.5-5.1 [facility] Comment on above: Order Comment: Order Date: 09/27/24Order Info: [id number] - CMPOrder Info: [id number] - CRE Performed By: #### L 500.4050, L100.0500 ####[facility] [address] [place], [place], [address] Sodium [Moles/Vol] 138 mmol/L Normal 136-145 [facility] Comment on above: Order Comment: Order Date: 09/27/24Order Info: [id number] - CMPOrder Info: [id number] - CRE Performed By: #### L 500.4050, L100.0500 ####[facility] [address] [place], [place], [id number] T PROT 8.0 g/dL Normal 6.4-8.2 [facility] Comment on above: Order Comment: Order Date: 09/27/24Order Info: [id number] - CMPOrder Info: [id number] - CRE Performed By: #### L 500.4050, L100.0500 ####[facility] [address] [place], [place], [address] Urea nitrogen [Mass/Vol] 11 mg/dL Normal 7-18 [facility] Comment on above: Order Comment: Order Date: 09/27/24Order Info: [id number] - CMPOrder Info: [id number] - CRE Performed By: #### L 500.4050, L100.0500 ####[facility] [address] [place], [address] Erythrocyte distribution wid th ratioOrdered By: Ramone Smiley on 09-27-2024 Erythrocyte distribution width (RBC) [Ratio] 15.9 % High 11.6-14.6 [facility] Erythrocyte distribution wid th standard deviationOrdered By: Ramone Smiley on 09-27-2024 Erythrocyte distribution width (RBC) [Ratio] 47.4 fl High 35.1-43.9 [facility] Glomerular filtration rate ( GFR) estimationOrdered By: Ramone Smiley on 09-27-2024 GFR/1.73 sq M.predicted among non-blacks MDRD (S/P/Bld) [Vol rate/Area] 67 mL/min/{1.73_m2} >60 [facility] Comment on above: Non- GFR Calc Glucose measurementOrdered B y: Ramone Smiley on 09-27-2024 Glucose [Mass/Vol] 144 mg/dL High 74-106 [facility] Comment on above: Fasting Glucose resu lt greater than or equal to 126 mg/dL suggests DIABETES MELLITUS per A.D.A. criteria. Hematocrit Auto (Bld) [Volum e fraction]Ordered By: Ramone Smiley on 09-27-2024 Hematocrit (Bld) [Volume fraction] 35.7 % Low 37-47 [facility] Hemoglobin measurementOrdere d By: Ramone Smiley on 09-27-2024 Hemoglobin (Bld) [Mass/Vol] 11.0 g/dL Low 12.0-15.0 [facility] Laboratory - Chemistry and C hemistry - challengeOrdered By: Ramone Smiley on 09-27-2024 AST [Catalytic activity/Vol] 16 U/L [facility] MCV (mean corpuscular volume ) determinationOrdered By: Ramone Smiley on 09-27-2024 MCV (RBC) [Entitic vol] 83.6 fL 81-99 [facility] Mean corpuscular hemoglobin (MCH) determinationOrdered By: Ramone Smiley on 09-27-2024 MCH (RBC) [Entitic mass] 25.8 pg Low 27.0-32.0 [facility] Mean corpuscular hemoglobin concentration (MCHC) determinationOrdered By: Ramone Smiley on 09-27-2024 MCHC (RBC) [Mass/Vol] 30.8 g/dL Low 32-36 [facility] Mean platelet volume determi nationOrdered By: Ramone Smilye on 09-27-2024 Platelet mean volume (Bld) [Entitic vol] 11.3 fL 6.2-12.0 [facility] No Panel InformationOrdered By: Ramone Smiley on 09-27-2024 16 U/L [facility] Platelet countOrdered By: Richar Smiley on 09-27-2024 Platelets (Bld) [#/Vol] 287 10*3/uL 150-450 [facility] Potassium measurementOrdered By: Ramone Smiley on 09-27-2024 Potassium [Moles/Vol] 3.5 mmol/L 3.5-5.1 [facility] RBC Auto (Bld) [#/Vol]Ordere d By: Ramone Smiley on 09-27-2024 RBC (Bld) [#/Vol] 4.27 10*6/uL 4.2-5.4 [facility] Serum anion gap measurementO rdered By: Ramone Smiley on 09-27-2024 Anion gap [Moles/Vol] 8 mmol/L 5-15 [facility] Serum globulin measurementOr dered By: Ramone Smiley on 09-27-2024 Globulin (S) [Mass/Vol] 5.0 g/dL High 2.2-4.2 [facility] Serum or plasma alanine kelley otransferase (ALT) measurementOrdered By: Ramone Smiley on 09-27-2024 ALT [Catalytic activity/Vol] 16 U/L 13-56 [facility] Serum or plasma albumin melanie urement (mass/volume)Ordered By: Ramone Smiley on 09-27-2024 Albumin [Mass/Vol] 3.0 g/dL Low 3.2-5.0 [facility] Serum or plasma alkaline lissa sphatase measurementOrdered By: Ramone Smiley on 09-27-2024 ALP [Catalytic activity/Vol] 145 U/L High 45-117 [facility] Serum or plasma calcium melanie urement (mass/volume)Ordered By: Ramone Smiley on 09-27-2024 Calcium [Mass/Vol] 11.0 mg/dL High 8.5-10.1 [facility] Serum or plasma creatinine m easurement (mass/volume)Ordered By: Ramone Smiley on 09-27-2024 Creatinine [Mass/Vol] 0.86 mg/dL 0.55-1.02 [facility] Comment on above: The validity of the calculated GFR & GFRAA in patients over 70 years has not been determined. Clinical correlation is essential. Serum or plasma urea nitroge n measurement (mass/volume)Ordered By: Ramone Smiley on 09-27-2024 Urea nitrogen [Mass/Vol] 11 mg/dL 7-18 [facility] Sodium levelOrdered By: Ramone Smiley on 09-27-2024 Sodium [Moles/Vol] 138 mmol/L 136-145 [facility] Total proteinOrdered By: Lilliam Smiley on 09-27-2024 Protein [Mass/Vol] 8.0 g/dL 6.4-8.2 [facility] White blood cell (WBC) count Ordered By: Ramone Smiley on 09-27-2024 WBC (Bld) [#/Vol] 8.6 10*3/uL 4.4-11.0 [facility] Kidney and Bladderon 024 Kidney and Bladder Normal [facility] BNP,B-Type NATRIURETIC PEPTI [place] 06-19-2024 Natriuretic peptide B (Bld) [Mass/Vol] 81.6 pg/mL Normal 0-100 [facility] Comment on above: Performed By: #### L 500.2500, L503.6620, L100.0100 ####[facility] [address] [place], [address] Basic Metabolic Profile (BMP )on 06-19-2024 BUN/CRE 9.3 RATIO Low 06-19 [facility] Comment on above: Performed By: #### L 500.2500, L503.6620, L100.0100 ####[facility] [address] [place], [address] CA,Total 11.0 mg/dL High 8.5-10.1 [facility] Comment on above: Performed By: #### L 500.2500, L503.6620, L100.0100 ####[facility] [address] [place], [address] Chloride [Moles/Vol] 104 mmol/L Normal 98-107 [facility] Comment on above: Performed By: #### L 500.2500, L503.6620, L100.0100 ####[facility] [address] [place], [address] CO2 [Moles/Vol] 26.0 mmol/L Normal 21.0-32.0 [facility] Comment on above: Performed By: #### L 500.2500, L503.6620, L100.0100 ####[facility] [address] [place], [address] Creatinine [Mass/Vol] 1.08 mg/dL High 0.55-1.02 [facility] Comment on above: Result Comment: The validity of the calculated GFR GFRAA in patients over70 years has not been determined. Clinical correlation isessential. Performed By: #### L 500.2500, L503.6620, L100.0100 ####[facility] [address] [place], [address] EST GFR - AA 63 mL/min Normal >60 [facility] Comment on above: Result Comment: Afri can Swazi GFR Calc Performed By: #### L 500.2500, L503.6620, L100.0100 ####[facility] [address] [place], [address] GAP 6 Normal 5-15 [facility] Comment on above: Performed By: #### L 500.2500, L503.6620, L100.0100 ####[facility] [address] [place], [address] GFR/1.73 sq M.predicted among non-blacks MDRD (S/P/Bld) [Vol rate/Area] 52 mL/min/{1.73_m2} Low >60 [facility] Comment on above: Result Comment: Non- GFR Calc Performed By: #### L 500.2500, L503.6620, L100.0100 ####[facility] [address] [place], [address] Glucose [Mass/Vol] 263 mg/dL High 74-106 [facility] Comment on above: Result Comment: Gluc ose result greater than or equal to 200 mg/dLsuggests DIABETES MELLITUS per A.D.A. criteria. Performed By: #### L 500.2500, L503.6620, L100.0100 ####[facility] [address] [place], [address] Potassium [Moles/Vol] 4.4 mmol/L Normal 3.5-5.1 [facility] Comment on above: Performed By: #### L 500.2500, L503.6620, L100.0100 ####[facility] [address] [place], [address] Sodium [Moles/Vol] 137 mmol/L Normal 136-145 [facility] Comment on above: Performed By: #### L 500.2500, L503.6620, L100.0100 ####[facility] [address] [place], [address] Urea nitrogen [Mass/Vol] 10 mg/dL Normal 7-18 [facility] Comment on above: Performed By: #### L 500.2500, L503.6620, L100.0100 ####[facility] [address] [place], [address] CBC W/Diff, Automatedon 10-2 0-2024 Absolute Lymph 2.32 X10 3/uL Normal 0.83-4.51 [facility] Comment on above: Performed By: #### L 500.2500, L503.6620, L100.0100 ####[facility] [address] [place], [address] Absolute Neut 4.7 X10 3/uL Normal 2.0-7.7 [facility] Comment on above: Performed By: #### L 500.2500, L503.6620, L100.0100 ####[facility] [address] [place], [address] Basophils/100 WBC (Bld) 0.5 % Normal 0-1 [facility] Comment on above: Performed By: #### L 500.2500, L503.6620, L100.0100 ####[facility] [address] [place], [address] Eosinophils/100 WBC (Bld) 8.7 % High 0-5 [facility] Comment on above: Performed By: #### L 500.2500, L503.6620, L100.0100 ####[facility] [address] [place], [address] Erythrocyte distribution width (RBC) [Ratio] 16.6 % High 11.6-14.6 [facility] Comment on above: Performed By: #### L 500.2500, L503.6620, L100.0100 ####[facility] [address] [place], [address] Hematocrit (Bld) [Volume fraction] 36.6 % Low 37-47 [facility] Comment on above: Performed By: #### L 500.2500, L503.6620, L100.0100 ####[facility] [address] [place], [address] Hemoglobin (Bld) [Mass/Vol] 11.2 g/dL Low 12.0-15.0 [facility] Comment on above: Performed By: #### L 500.2500, L503.6620, L100.0100 ####[facility] [address] [place], [address] IG% 0.200 Normal 0.0-0.9 [facility] Comment on above: Result Comment: IG% - Immature Granulocytes (promyelocytes, myelocytes andmetamyelocytes) > 1% indicates that a LEFT SHIFT is Present. Performed By: #### L 500.2500, L503.6620, L100.0100 ####[facility] [address] [place], [address] Lymphocytes/100 WBC (Bld) 27.7 % Normal 19-41 [facility] Comment on above: Performed By: #### L 500.2500, L503.6620, L100.0100 ####[facility] [address] [place], [address] MCH (RBC) [Entitic mass] 25.6 pg Low 27.0-32.0 [facility] Comment on above: Performed By: #### L 500.2500, L503.6620, L100.0100 ####[facility] [address] [place], [address] MCHC (RBC) [Mass/Vol] 30.6 g/dL Low 32-36 [facility] Comment on above: Performed By: #### L 500.2500, L503.6620, L100.0100 ####[facility] [address] [place], [address] MCV (RBC) [Entitic vol] 83.8 fL Normal 81-99 [facility] Comment on above: Performed By: #### L 500.2500, L503.6620, L100.0100 ####[facility] [address] [place], [address] Monocytes/100 WBC (Bld) 6.7 % Normal 0-10 [facility] Comment on above: Performed By: #### L 500.2500, L503.6620, L100.0100 ####[facility] [address] [place], [address] Neutrophils/100 WBC (Bld) 56.2 % Normal 47-70 [facility] Comment on above: Performed By: #### L 500.2500, L503.6620, L100.0100 ####[facility] [address] [place], [address] Nucleated RBC (Bld) [#/Vol] 0 10*3/uL Normal 0-5 [facility] Comment on above: Performed By: #### L 500.2500, L503.6620, L100.0100 ####[facility] [address] [place], [address] Platelet mean volume (Bld) [Entitic vol] 10.4 fL Normal 6.2-12.0 [facility] Comment on above: Performed By: #### L 500.2500, L503.6620, L100.0100 ####[facility] [address] [place], [address] Platelets (Bld) [#/Vol] 234 10*3/uL Normal 150-450 [facility] Comment on above: Performed By: #### L 500.2500, L503.6620, L100.0100 ####[facility] [address] [place], [address] RBC (Bld) [#/Vol] 4.37 10*6/uL Normal 4.2-5.4 [facility] Comment on above: Performed By: #### L 500.2500, L503.6620, L100.0100 ####[facility] [address] [place], [address] RDW SD 50.9 fl High 35.1-43.9 [facility] Comment on above: Performed By: #### L 500.2500, L503.6620, L100.0100 ####[facility] [address] [place], [address] WBC (Bld) [#/Vol] 8.4 10*3/uL Normal 4.4-11.0 [facility] Comment on above: Performed By: #### L 500.2500, L503.6620, L100.0100 ####[facility] [address] [place], [address] Chest 1 View (Portable)on Chest 1 View (Portable) Normal [facility] Emergency Department Summary on 06-19-2024 Emergency Department Summary Normal [facility] 12 Lead EKGon 05-30-2024 12 Lead EKG Normal [facility] BNP,B-Type NATRIURETIC PEPTI Ishaan 05-30-2024 Natriuretic peptide B (Bld) [Mass/Vol] 108.0 pg/mL High 0-100 [facility] Comment on above: Performed By: #### L 100.0100, L503.6620, L500.2500, L501.4020 ####[facility] [address] [place], [address] Basic Metabolic Profile (BMP )on 05-30-2024 BUN/CRE 12.8 RATIO Normal 10-20 [facility] Comment on above: Order Comment: 'TROP ' Serial specimen #1, #2 or #3: 1 Performed By: #### L 100.0100, L503.6620, L500.2500, L501.4020 ####[facility] [address] [place], [address] CA,Total 11.4 mg/dL High 8.5-10.1 [facility] Comment on above: Order Comment: 'TROP ' Serial specimen #1, #2 or #3: 1 Performed By: #### L 100.0100, L503.6620, L500.2500, L501.4020 ####[facility] [address] [place], [address] Chloride [Moles/Vol] 104 mmol/L Normal 98-107 [facility] Comment on above: Order Comment: 'TROP ' Serial specimen #1, #2 or #3: 1 Performed By: #### L 100.0100, L503.6620, L500.2500, L501.4020 ####[facility] [address] [place], [address] CO2 [Moles/Vol] 28.0 mmol/L Normal 21.0-32.0 [facility] Comment on above: Order Comment: 'TROP ' Serial specimen #1, #2 or #3: 1 Performed By: #### L 100.0100, L503.6620, L500.2500, L501.4020 ####[facility] [address] [place], [address] Creatinine [Mass/Vol] 0.93 mg/dL Normal 0.55-1.02 [facility] Comment on above: Order Comment: 'TROP ' Serial specimen #1, #2 or #3: 1 Result Comment: The validity of the calculated GFR GFRAA in patients over70 years has not been determined. Clinical correlation isessential. Performed By: #### L 100.0100, L503.6620, L500.2500, L501.4020 ####[facility] [address] [place], [address] ECRCL 45.88 ml/min Normal [facility] Comment on above: Order Comment: 'TROP ' Serial specimen #1, #2 or #3: 1 Performed By: #### L 100.0100, L503.6620, L500.2500, L501.4020 ####[facility] [address] [place], [address] EST GFR - AA 74 mL/min Normal >60 [facility] Comment on above: Order Comment: 'TROP ' Serial specimen #1, #2 or #3: 1 Result Comment: Afri can Swazi GFR Calc Performed By: #### L 100.0100, L503.6620, L500.2500, L501.4020 ####[facility] [address] [place], [address] GAP 7 Normal 5-15 [facility] Comment on above: Order Comment: 'TROP ' Serial specimen #1, #2 or #3: 1 Performed By: #### L 100.0100, L503.6620, L500.2500, L501.4020 ####[facility] [address] [place], [address] GFR/1.73 sq M.predicted among non-blacks MDRD (S/P/Bld) [Vol rate/Area] 61 mL/min/{1.73_m2} Normal >60 [facility] Comment on above: Order Comment: 'TROP ' Serial specimen #1, #2 or #3: 1 Result Comment: Non- GFR Calc Performed By: #### L 100.0100, L503.6620, L500.2500, L501.4020 ####[facility] [address] [place], [address] Glucose [Mass/Vol] 167 mg/dL High 74-106 [facility] Comment on above: Order Comment: 'TROP ' Serial specimen #1, #2 or #3: 1 Result Comment: Fast ing Glucose result greater than or equal to 126 mg/dLsuggests DIABETES MELLITUS per A.D.A. criteria. Performed By: #### L 100.0100, L503.6620, L500.2500, L501.4020 ####[facility] [address] [place], [address] Potassium [Moles/Vol] 4.0 mmol/L Normal 3.5-5.1 [facility] Comment on above: Order Comment: 'TROP ' Serial specimen #1, #2 or #3: 1 Performed By: #### L 100.0100, L503.6620, L500.2500, L501.4020 ####[facility] [address] [place], [address] Sodium [Moles/Vol] 138 mmol/L Normal 136-145 [facility] Comment on above: Order Comment: 'TROP ' Serial specimen #1, #2 or #3: 1 Performed By: #### L 100.0100, L503.6620, L500.2500, L501.4020 ####[facility] [address] [place], [address] Urea nitrogen [Mass/Vol] 12 mg/dL Normal 7-18 [facility] Comment on above: Order Comment: 'TROP ' Serial specimen #1, #2 or #3: 1 Performed By: #### L 100.0100, L503.6620, L500.2500, L501.4020 ####[facility] [address] [place], [address] CBC W/Diff, Automatedon 09-3 0-2024 PLT EST ADEQUATE Normal ADEQ [facility] Comment on above: Performed By: #### L 100.0100, L503.6620, L500.2500, L501.4020 ####[facility] [address] [place], [address] Chest PA and Lateralon 05-30 Chest PA and Lateral Normal [facility] Emergency Department Summary on 05-30-2024 Emergency Department Summary Normal [facility] L501.4020on 05-30-2024 TROPONIN-I HS 12 pg/mL Normal 3.0-54.0 [facility] Comment on above: Order Comment: 'TROP ' Serial specimen #1, #2 or #3: 1 Result Comment: Plea se Note: New Test Units and Gender Specific Reference Ranges. For more information see Policy Stat Procedure [facility] High Sensitivity Troponin (TNIH) and attachments. Performed By: #### L 100.0100, L503.6620, L500.2500, L501.4020 ####[facility] [address] [place], [address] Inital Evaluation (1) - PTon 04-26-2024 Inital Evaluation (1) - PT Normal [facility] CBC W/Diff, Automatedon 03-31 Absolute Lymph 1.93 X10 3/uL Normal 0.83-4.51 [facility] Comment on above: Performed By: #### L 100.0100, L500.4050, L501.9985 ####[facility] [address] [place], [address] Absolute Neut 5.1 X10 3/uL Normal 2.0-7.7 [facility] Comment on above: Performed By: #### L 100.0100, L500.4050, L501.9985 ####[facility] [address] [place], [address] Basophils/100 WBC (Bld) 0.6 % Normal 0-1 [facility] Comment on above: Performed By: #### L 100.0100, L500.4050, L501.9985 ####[facility] [address] [place], [address] Eosinophils/100 WBC (Bld) 3.7 % Normal 0-5 [facility] Comment on above: Performed By: #### L 100.0100, L500.4050, L501.9985 ####[facility] [address] [place], [address] Erythrocyte distribution width (RBC) [Ratio] 16.0 % High 11.6-14.6 [facility] Comment on above: Performed By: #### L 100.0100, L500.4050, L501.9985 ####[facility] [address] [place], [address] Hematocrit (Bld) [Volume fraction] 34.9 % Low 37-47 [facility] Comment on above: Performed By: #### L 100.0100, L500.4050, L501.9985 ####[facility] [address] [place], [address] Hemoglobin (Bld) [Mass/Vol] 10.4 g/dL Low 12.0-15.0 [facility] Comment on above: Performed By: #### L 100.0100, L500.4050, L501.9985 ####[facility] [address] [place], [address] IG% 0.300 Normal 0.0-0.9 [facility] Comment on above: Result Comment: IG% - Immature Granulocytes (promyelocytes, myelocytes andmetamyelocytes) > 1% indicates that a LEFT SHIFT is Present. Performed By: #### L 100.0100, L500.4050, L501.9985 ####[facility] [address] [place], [address] Lymphocytes/100 WBC (Bld) 24.5 % Normal 19-41 [facility] Comment on above: Performed By: #### L 100.0100, L500.4050, L501.9985 ####[facility] [address] [place], [address] MCH (RBC) [Entitic mass] 24.4 pg Low 27.0-32.0 [facility] Comment on above: Performed By: #### L 100.0100, L500.4050, L501.9985 ####[facility] [address] [place], [address] MCHC (RBC) [Mass/Vol] 29.8 g/dL Low 32-36 [facility] Comment on above: Performed By: #### L 100.0100, L500.4050, L501.9985 ####[facility] [address] [place], [address] MCV (RBC) [Entitic vol] 81.9 fL Normal 81-99 [facility] Comment on above: Performed By: #### L 100.0100, L500.4050, L501.9985 ####[facility] [address] [place], [address] Monocytes/100 WBC (Bld) 6.8 % Normal 0-10 [facility] Comment on above: Performed By: #### L 100.0100, L500.4050, L501.9985 ####[facility] [address] [place], [address] Neutrophils/100 WBC (Bld) 64.1 % Normal 47-70 [facility] Comment on above: Performed By: #### L 100.0100, L500.4050, L501.9985 ####[facility] [address] [place], [address] Nucleated RBC (Bld) [#/Vol] 0 10*3/uL Normal 0-5 [facility] Comment on above: Performed By: #### L 100.0100, L500.4050, L501.9985 ####[facility] [address] [place], [address] Platelet mean volume (Bld) [Entitic vol] 10.7 fL Normal 6.2-12.0 [facility] Comment on above: Performed By: #### L 100.0100, L500.4050, L501.9985 ####[facility] [address] [place], [address] Platelets (Bld) [#/Vol] 294 10*3/uL Normal 150-450 [facility] Comment on above: Performed By: #### L 100.0100, L500.4050, L501.9985 ####[facility] [address] [place], [address] RBC (Bld) [#/Vol] 4.26 10*6/uL Normal 4.2-5.4 [facility] Comment on above: Performed By: #### L 100.0100, L500.4050, L501.9985 ####[facility] [address] [place], [address] RDW SD 48.0 fl High 35.1-43.9 [facility] Comment on above: Performed By: #### L 100.0100, L500.4050, L501.9985 ####[facility] [address] [place], [address] WBC (Bld) [#/Vol] 7.9 10*3/uL Normal 4.4-11.0 [facility] Comment on above: Performed By: #### L 100.0100, L500.4050, L501.9985 ####[facility] [address] [place], [address] Comprehensive Metabolic Prof hung 04-18-2024 Albumin [Mass/Vol] 3.0 g/dL Low 3.2-5.0 [facility] Comment on above: Performed By: #### L 100.0100, L500.4050, L501.9985 ####[facility] [address] [place], [address] Albumin/Globulin [Mass ratio] 0.6 {ratio} Low 0.9-2.4 [facility] Comment on above: Performed By: #### L 100.0100, L500.4050, L501.9985 ####[facility] [address] [place], [address] ALK P 130 U/L High 45-117 [facility] Comment on above: Performed By: #### L 100.0100, L500.4050, L501.9985 ####[facility] [address] [place], [address] ALT [Catalytic activity/Vol] 14 U/L Normal 13-56 [facility] Comment on above: Performed By: #### L 100.0100, L500.4050, L501.9985 ####[facility] [address] [place], [address] AST [Catalytic activity/Vol] 22 U/L Normal 15-37 [facility] Comment on above: Performed By: #### L 100.0100, L500.4050, L501.9985 ####[facility] [address] [place], [address] Bilirubin [Mass/Vol] 0.30 mg/dL Normal 0.20-1.00 [facility] Comment on above: Result Comment: For patients on eltrombopag therapy, use of Dimension [facility] TBIL is not recommended. Performed By: #### L 100.0100, L500.4050, L501.9985 ####[facility] [address] [place], [address] BUN/CRE 12.5 RATIO Normal 10-20 [facility] Comment on above: Performed By: #### L 100.0100, L500.4050, L501.9985 ####[facility] [address] [place], [address] CA,Total 11.0 mg/dL High 8.5-10.1 [facility] Comment on above: Performed By: #### L 100.0100, L500.4050, L501.9985 ####[facility] [address] [place], [address] Chloride [Moles/Vol] 101 mmol/L Normal 98-107 [facility] Comment on above: Performed By: #### L 100.0100, L500.4050, L501.9985 ####[facility] [address] [place], [address] CO2 [Moles/Vol] 26.0 mmol/L Normal 21.0-32.0 [facility] Comment on above: Performed By: #### L 100.0100, L500.4050, L501.9985 ####[facility] [address] [place], [address] Creatinine [Mass/Vol] 0.96 mg/dL Normal 0.55-1.02 [facility] Comment on above: Result Comment: The validity of the calculated GFR GFRAA in patients over70 years has not been determined. Clinical correlation isessential. Performed By: #### L 100.0100, L500.4050, L501.9985 ####[facility] [address] [place], [address] EST GFR - AA 72 mL/min Normal >60 [facility] Comment on above: Result Comment: Afri can Swazi GFR Calc Performed By: #### L 100.0100, L500.4050, L501.9985 ####[facility] [address] [place], [address] GAP 6 Normal 5-15 [facility] Comment on above: Performed By: #### L 100.0100, L500.4050, L501.9985 ####[facility] [address] [place], [address] GFR/1.73 sq M.predicted among non-blacks MDRD (S/P/Bld) [Vol rate/Area] 59 mL/min/{1.73_m2} Low >60 [facility] Comment on above: Result Comment: Non- GFR Calc Performed By: #### L 100.0100, L500.4050, L501.9985 ####[facility] [address] [place], [address] Globulin (S) [Mass/Vol] 5.4 g/dL High 2.2-4.2 [facility] Comment on above: Performed By: #### L 100.0100, L500.4050, L501.9985 ####[facility] [address] [place], [address] Glucose [Mass/Vol] 142 mg/dL High 74-106 [facility] Comment on above: Result Comment: Fast ing Glucose result greater than or equal to 126 mg/dLsuggests DIABETES MELLITUS per A.D.A. criteria. Performed By: #### L 100.0100, L500.4050, L501.9985 ####[facility] [address] [place], [address] Potassium [Moles/Vol] 3.5 mmol/L Normal 3.5-5.1 [facility] Comment on above: Performed By: #### L 100.0100, L500.4050, L501.9985 ####[facility] [address] [place], [address] Sodium [Moles/Vol] 133 mmol/L Low 136-145 [facility] Comment on above: Performed By: #### L 100.0100, L500.4050, L501.9985 ####[facility] [address] [place], [address] T PROT 8.4 g/dL High 6.4-8.2 [facility] Comment on above: Performed By: #### L 100.0100, L500.4050, L501.9985 ####[facility] [address] [place], [address] Urea nitrogen [Mass/Vol] 12 mg/dL Normal 7-18 [facility] Comment on above: Performed By: #### L 100.0100, L500.4050, L501.9985 ####[facility] [address] [place], [address] Hemoglobin A1con 04-18-2024 HbA1c (Bld) [Mass fraction] 8.2 % High 3.8-5.6 [facility] Comment on above: Result Comment: Norm al < 5.7 % Prediabetic 5.7 - 6.4 % Diabetic >or= 6.5 % Please note range changes. Performed By: #### L 100.0100, L500.4050, L501.9985 ####[facility] [address] [place], [address] Absolute lymphocyte countOrd ered By: Sunny Bell on 12-30-2023 Lymphocytes Auto (Unsp spec) [#/Vol] 2.48 10*3/uL 0.83-4.51 [facility] Automated lymphocyte count a s percentage of total leukocytesOrdered By: Sunny Bell on 12-30-2023 Lymphocytes/100 WBC Auto (Unsp spec) 25.3 % 19-41 [facility] Basophil percentageOrdered B y: Sunny Bell on 12-30-2023 Basophils/100 WBC (Bld) 0.3 % 0-1 [facility] Chloride [Moles/Vol] 104 mmol/L 98-107 [facility] Eosin[facility] WBC (Bld) 1.4 % 0-5 [facility] Glucose [Mass/Vol] 127 mg/dL 74-106 [facility] Comment on above: Fasting Glucose resu lt greater than or equal to 126 mg/dL suggests DIABETES MELLITUS per A.D.A. criteria. Hemoglobin (Bld) [Mass/Vol] 10.7 g/dL 12.0-15.0 [facility] Monocytes/100 WBC (Bld) 8.7 % 0-10 [facility] Neutrophils (Bld) [#/Vol] 6.3 10*3/uL 2.0-7.7 [facility] Neutrophils/100 WBC (Bld) 63.9 % 47-70 [facility] Potassium [Moles/Vol] 4.4 mmol/L 3.5-5.1 [facility] Sodium [Moles/Vol] 135 mmol/L 136-145 [facility] WBC (Bld) [#/Vol] 9.8 10*3/uL 4.4-11.0 [facility] Determination of erythrocyte mean corpuscular volume (MCV)Ordered By: Sunny Bell on 12-30-2023 MCV (RBC) [Entitic vol] 84.9 fL 81-99 [facility] Erythrocyte distribution wid th ratioOrdered By: Sunny Bell on 12-30-2023 Erythrocyte distribution width (RBC) [Ratio] 15.5 % 11.6-14.6 [facility] Erythrocyte distribution wid th standard deviationOrdered By: Sunny Bell on 12-30-2023 Erythrocyte distribution width (RBC) [Entitic vol] 47.9 fL 35.1-43.9 [facility] Hematocrit Auto (Bld) [Volum e fraction]Ordered By: Sunny Bell on 12-30-2023 Hematocrit (Bld) [Volume fraction] 33.8 % 37-47 [facility] Immature granulocytes/100 WB C Auto (Bld)Ordered By: Sunny Bell on 12-30-2023 Immature granulocytes/100 WBC (Bld) 0.400 % 0.0-0.9 [facility] Comment on above: IG% - Immature Granu locytes (promyelocytes, myelocytes and metamyelocytes) > 1% indicates that a LEFT SHIFT is Present. Laboratory - Chemistry and C hemistry - challengeOrdered By: Sunny Bell on 12-30-2023 CO2 [Moles/Vol] 27.0 mmol/L 21.0-32.0 [facility] Urea nitrogen/Creatinine [Mass ratio] 21.3 mg/mg 10-20 [facility] Laboratory - Hematology and Cell countsOrdered By: Sunny Bell on 12-30-2023 MCH (RBC) [Entitic mass] 26.9 pg 27.0-32.0 [facility] MCHC (RBC) [Mass/Vol] 31.7 g/dL 32-36 [facility] Nucleated RBC/100 WBC (Bld) [Ratio] 0 % 0-5 [facility] Platelet mean volume (Bld) [Entitic vol] 11.3 fL 6.2-12.0 [facility] Platelets (Bld) [#/Vol] 191 10*3/uL 150-450 [facility] No Panel InformationOrdered By: Sunny Bell on 12-30-2023 Estimated Creatinine Clearance Calc 40.01 ml/min [facility] Estimated GFR (MDRD) Amer 63 mL/min >60 [facility] Comment on above: GFR Calc Estimated GFR (MDRD) Non-Af Amer 52 mL/min >60 [facility] Comment on above: Non- GFR Calc RBC Auto (Bld) [#/Vol]Ordere d By: Sunny Bell on 12-30-2023 RBC (Bld) [#/Vol] 3.98 10*6/uL 4.2-5.4 [facility] Serum or plasma calcium melanie urement (mass/volume)Ordered By: Sunny Bell on 12-30-2023 Calcium [Mass/Vol] 11.3 mg/dL 8.5-10.1 [facility] Serum or plasma creatinine m easurement (mass/volume)Ordered By: Sunny Bell on 12-30-2023 Creatinine [Mass/Vol] 1.08 mg/dL 0.55-1.02 [facility] Comment on above: The validity of the calculated GFR & GFRAA in patients over 70 years has not been determined. Clinical correlation is essential. Serum or plasma urea nitroge n measurement (mass/volume)Ordered By: Sunny Bell on 12-30-2023 Urea nitrogen [Mass/Vol] 23 mg/dL 7-18 [facility] Thin prep Papanicolaou smear with manual screeningOrdered By: Sunny Bell on 12-30-2023 Thin prep Papanicolaou smear with manual screening 78 mg/dL 74-106 [facility] Comment on above: MANAGEMENT OF PATIEN T CARE PER NURSING PROTOCOL Thin prep Papanicolaou smear with manual screening 4 5-15 [facility] Basophil percentageOrdered B y: Sunny Bell on 12-28-2023 Basophil percentage 3.0 mg/dL 2.5-4.9 [facility] No Panel InformationOrdered By: Nestor Bartlett on 12-28-2023 Parathyroid Hormone (Intact) 177.6 pg/mL 18.4-80.1 [facility] Absolute lymphocyte countOrd ered By: Queta Cortez on 12-27-2023 Lymphocytes Auto (Unsp spec) [#/Vol] 3.04 10*3/uL 0.83-4.51 [facility] Activated partial thrombopla stin time (aPTT) in platelet poor plasma by coagulation aOrdered By: Queta Cortez on 12-27-2023 aPTT Coag (PPP) [Time] 27.3 s 24.1-36.2 [facility] Automated lymphocyte count a s percentage of total leukocytesOrdered By: Queta Cortez on 12-27-2023 Lymphocytes/100 WBC Auto (Unsp spec) 37.1 % 19-41 [facility] Basophil percentageOrdered B y: Queta Cortez on 12-27-2023 Basophils/100 WBC (Bld) 0.5 % 0-1 [facility] Chloride [Moles/Vol] 103 mmol/L 98-107 [facility] Eosinophils/100 WBC (Bld) 3.1 % 0-5 [facility] Glucose [Mass/Vol] 254 mg/dL 74-106 [facility] Comment on above: Glucose result great er than or equal to 200 mg/dLsuggests DIABETES MELLITUS per A.D.A. criteria. Hemoglobin (Bld) [Mass/Vol] 12.4 g/dL 12.0-15.0 [facility] Monocytes/100 WBC (Bld) 6.6 % 0-10 [facility] Neutrophils (Bld) [#/Vol] 4.2 10*3/uL 2.0-7.7 [facility] Neutrophils/100 WBC (Bld) 51.7 % 47-70 [facility] Potassium [Moles/Vol] 4.2 mmol/L 3.5-5.1 [facility] Sodium [Moles/Vol] 136 mmol/L 136-145 [facility] WBC (Bld) [#/Vol] 8.2 10*3/uL 4.4-11.0 [facility] Determination of erythrocyte mean corpuscular volume (MCV)Ordered By: Queta Cortez on 12-27-2023 MCV (RBC) [Entitic vol] 85.2 fL 81-99 [facility] Erythrocyte distribution wid th ratioOrdered By: Queta Cortez on 12-27-2023 Erythrocyte distribution width (RBC) [Ratio] 15.5 % 11.6-14.6 [facility] Erythrocyte distribution wid th standard deviationOrdered By: Queta Cortez on 12-27-2023 Erythrocyte distribution width (RBC) [Entitic vol] 47.0 fL 35.1-43.9 [facility] Hematocrit Auto (Bld) [Volum e fraction]Ordered By: Queta Cortez on 12-27-2023 Hematocrit (Bld) [Volume fraction] 39.8 % 37-47 [facility] Immature granulocytes/100 WB C Auto (Bld)Ordered By: Queta Cortez on 12-27-2023 Immature granulocytes/100 WBC (Bld) 1.000 % 0.0-0.9 [facility] Comment on above: IG% - Immature Granu locytes (promyelocytes, myelocytes and metamyelocytes) > 1% indicates that a LEFT SHIFT is Present. Laboratory - Chemistry and C hemistry - challengeOrdered By: Queta Cortez on 12-27-2023 CO2 [Moles/Vol] 29.0 mmol/L 21.0-32.0 [facility] Urea nitrogen/Creatinine [Mass ratio] 18.5 mg/mg 10-20 [facility] Laboratory - CoagulationOrde red By: Queta Cortez on 12-27-2023 INR Coag (Bld) [Relative time] 1.1 {INR} [facility] PT Coag (PPP) [Time] 13.7 s 11.7-14.9 [facility] Laboratory - Hematology and Cell countsOrdered By: Queta Cortez on 12-27-2023 MCH (RBC) [Entitic mass] 26.6 pg 27.0-32.0 [facility] MCHC (RBC) [Mass/Vol] 31.2 g/dL 32-36 [facility] Nucleated RBC/100 WBC (Bld) [Ratio] 0 % 0-5 [facility] Platelet mean volume (Bld) [Entitic vol] 11.5 fL 6.2-12.0 [facility] Platelets (Bld) [#/Vol] 237 10*3/uL 150-450 [facility] No Panel InformationOrdered By: Queta Cortez on 12-27-2023 Estimated Creatinine Clearance Calc 37.33 ml/min [facility] Estimated GFR (MDRD) Amer 56 mL/min >60 [facility] Comment on above: GFR Calc Estimated GFR (MDRD) Non-Af Amer 46 mL/min >60 [facility] Comment on above: Non- GFR Calc RBC Auto (Bld) [#/Vol]Ordere d By: Queta Cortez on 12-27-2023 RBC (Bld) [#/Vol] 4.67 10*6/uL 4.2-5.4 [facility] Serum or plasma calcium melanie urement (mass/volume)Ordered By: Queta Cortez on 12-27-2023 Calcium [Mass/Vol] 11.2 mg/dL 8.5-10.1 [facility] Serum or plasma creatinine m easurement (mass/volume)Ordered By: Queta Cortez on 12-27-2023 Creatinine [Mass/Vol] 1.19 mg/dL 0.55-1.02 [facility] Comment on above: The validity of the calculated GFR & GFRAA in patients over 70 years has not been determined. Clinical correlation is essential. Serum or plasma urea nitroge n measurement (mass/volume)Ordered By: Queta Cortez on 12-27-2023 Urea nitrogen [Mass/Vol] 22 mg/dL 7-18 [facility] Thin prep Papanicolaou smear with manual screeningOrdered By: Queta Cortez on 12-27-2023 Thin prep Papanicolaou smear with manual screening 4 5-15 [facility] Whole blood hemoglobin A1c/t otal hemoglobin ratio (mass fraction)Ordered By: Nestor Bartlett on 12-27-2023 HbA1c (Bld) [Mass fraction] 9.4 % 3.8-5.6 [facility] Comment on above: Normal < 5.7 % Predi abetic 5.7 - 6.4 % Diabetic >or= 6.5 % Please note range changes. Absolute lymphocyte countOrd ered By: Ramone Smiley on 10-26-2023 Lymphocytes Auto (Unsp spec) [#/Vol] 2.86 10*3/uL 0.83-4.51 [facility] Automated lymphocyte count a s percentage of total leukocytesOrdered By: Ramone Smiley on 10-26-2023 Lymphocytes/100 WBC Auto (Unsp spec) 31.9 % 19-41 [facility] Basophil percentageOrdered B y: Ramone Smiley on 10-26-2023 Basophils/100 WBC (Bld) 0.6 % 0-1 [facility] Bilirubin [Mass/Vol] 0.30 mg/dL 0.20-1.00 [facility] Comment on above: For patients on eltr ombopag therapy, use of Dimension [place] TBIL is not recommended. Chloride [Moles/Vol] 101 mmol/L 98-107 [facility] Eosinophils/100 WBC (Bld) 2.6 % 0-5 [facility] Glucose [Mass/Vol] 135 mg/dL 74-106 [facility] Comment on above: Fasting Glucose resu lt greater than or equal to 126 mg/dL suggests DIABETES MELLITUS per A.D.A. criteria. Hemoglobin (Bld) [Mass/Vol] 10.9 g/dL 12.0-15.0 [facility] Monocytes/100 WBC (Bld) 8.0 % 0-10 [facility] Neutrophils (Bld) [#/Vol] 5.1 10*3/uL 2.0-7.7 [facility] Neutrophils/100 WBC (Bld) 56.6 % 47-70 [facility] Potassium [Moles/Vol] 4.5 mmol/L 3.5-5.1 [facility] Protein [Mass/Vol] 8.6 g/dL 6.4-8.2 [facility] Sodium [Moles/Vol] 134 mmol/L 136-145 [facility] WBC (Bld) [#/Vol] 9.0 10*3/uL 4.4-11.0 [facility] Determination of erythrocyte mean corpuscular volume (MCV)Ordered By: Ramone Smiley on 10-26-2023 MCV (RBC) [Entitic vol] 85.8 fL 81-99 [facility] Erythrocyte distribution wid th ratioOrdered By: Ramone mSiley on 10-26-2023 Erythrocyte distribution width (RBC) [Ratio] 17.5 % 11.6-14.6 [facility] Erythrocyte distribution wid th standard deviationOrdered By: Ramone Smiley on 10-26-2023 Erythrocyte distribution width (RBC) [Entitic vol] 55.2 fL 35.1-43.9 [facility] Hematocrit Auto (Bld) [Volum e fraction]Ordered By: Ramone Smiley on 10-26-2023 Hematocrit (Bld) [Volume fraction] 36.2 % 37-47 [facility] Immature granulocytes/100 WB C Auto (Bld)Ordered By: Ramone Smiley on 10-26-2023 Immature granulocytes/100 WBC (Bld) 0.300 % 0.0-0.9 [facility] Comment on above: IG% - Immature Granu locytes (promyelocytes, myelocytes and metamyelocytes) > 1% indicates that a LEFT SHIFT is Present. Laboratory - Chemistry and C hemistry - challengeOrdered By: Ramone Smiley on 10-26-2023 Albumin/Globulin [Mass ratio] 0.6 {ratio} 0.9-2.4 [facility] ALP [Catalytic activity/Vol] 109 U/L 45-117 [facility] ALT [Catalytic activity/Vol] 17 U/L 13-56 [facility] CO2 [Moles/Vol] 27.0 mmol/L 21.0-32.0 [facility] Cobalamin (Vitamin B12) [Mass/Vol] 654 pg/mL 211-911 [facility] Ferritin [Mass/Vol] 99 ng/mL 8-252 [facility] Globulin (S) [Mass/Vol] 5.4 g/dL 2.2-4.2 [facility] Urea nitrogen/Creatinine [Mass ratio] 17.6 mg/mg 10-20 [facility] Laboratory - Hematology and Cell countsOrdered By: Ramone Smiley on 10-26-2023 MCH (RBC) [Entitic mass] 25.8 pg 27.0-32.0 [facility] MCHC (RBC) [Mass/Vol] 30.1 g/dL 32-36 [facility] Nucleated RBC/100 WBC (Bld) [Ratio] 0 % 0-5 [facility] Platelet mean volume (Bld) [Entitic vol] 11.6 fL 6.2-12.0 [facility] Platelets (Bld) [#/Vol] 268 10*3/uL 150-450 [facility] No Panel InformationOrdered By: Ramone Smiley on 10-26-2023 Estimated GFR (MDRD) Amer 67 mL/min >60 [facility] Comment on above: GFR Calc Estimated GFR (MDRD) Non-Af Amer 55 mL/min >60 [facility] Comment on above: Non- GFR Calc Folate 23.70 ng/mL 3.1-55.4 [facility] Vitamin D 25-Hydroxy 34.5 ng/mL [facility] Comment on above: Vitamin D 25(OH) Sta tus Range Deficiency <20 ng/mL (50nmol/L) Insufficiency 20 - 30 ng/mL (50 - 75 nmol/L) Sufficiency 30 - 100 ng/mL (75 - 250 nmol/L) Toxicity >100 ng/mL (>250 nmol/L) RBC Auto (Bld) [#/Vol]Ordere d By: Ramone Smiley on 10-26-2023 RBC (Bld) [#/Vol] 4.22 10*6/uL 4.2-5.4 [facility] Serum or plasma calcium melanie urement (mass/volume)Ordered By: Ramone Smiley on 10-26-2023 Calcium [Mass/Vol] 11.2 mg/dL 8.5-10.1 [facility] Serum or plasma creatinine m easurement (mass/volume)Ordered By: Ramone Smiley on 10-26-2023 Creatinine [Mass/Vol] 1.02 mg/dL 0.55-1.02 [facility] Comment on above: The validity of the calculated GFR & GFRAA in patients over 70 years has not been determined. Clinical correlation is essential. Serum or plasma thyroid stim ulating hormone (TSH) measurement (units/volume)Ordered By: Ramone Smiley on 10-26-2023 TSH Qn 0.66 uIU/mL 0.358-3.74 [facility] Serum or plasma urea nitroge n measurement (mass/volume)Ordered By: Ramone Smiley on 10-26-2023 Urea nitrogen [Mass/Vol] 18 mg/dL 7-18 [facility] Thin prep Papanicolaou smear with manual screeningOrdered By: Ramone Smiley on 10-26-2023 Thin prep Papanicolaou smear with manual screening 3.2 g/dL 3.2-5.0 [facility] Thin prep Papanicolaou smear with manual screening 18 U/L 15-37 [facility] Thin prep Papanicolaou smear with manual screening 6 5-15 [facility] Whole blood hemoglobin A1c/t otal hemoglobin ratio (mass fraction)Ordered By: Ramone Smiley on 10-26-2023 HbA1c (Bld) [Mass fraction] 8.2 % 3.8-5.6 [facility] Comment on above: Normal < 5.7 % Predi abetic 5.7 - 6.4 % Diabetic >or= 6.5 % Please note range changes. Basophil percentageOrdered B y: Nestor Bartlett on 08-17-2023 Chloride [Moles/Vol] 105 mmol/L 98-107 [facility] Glucose [Mass/Vol] 167 mg/dL 74-106 [facility] Comment on above: Fasting Glucose resu lt greater than or equal to 126 mg/dL suggests DIABETES MELLITUS per A.D.A. criteria. Potassium [Moles/Vol] 4.9 mmol/L 3.5-5.1 [facility] Sodium [Moles/Vol] 139 mmol/L 136-145 [facility] WBC (Bld) [#/Vol] 8.4 10*3/uL 4.4-11.0 [facility] Blood erythrocytes count (nu mber/volume)Ordered By: Nestor Bartlett on 08-17-2023 RBC (Bld) [#/Vol] 3.41 10*6/uL 4.2-5.4 [facility] Blood hemoglobin measurement (mass/volume)Ordered By: Nestor Bartlett on 08-17-2023 Hemoglobin (Bld) [Mass/Vol] 8.9 g/dL 12.0-15.0 [facility] Blood platelet mean volumeOr dered By: Nestor Bartlett on 08-17-2023 Platelet mean volume (Bld) [Entitic vol] 10.4 fL 6.2-12.0 [facility] Determination of erythrocyte mean corpuscular volume (MCV)Ordered By: Nestor Bartlett on 08-17-2023 MCV (RBC) [Entitic vol] 84.5 fL 81-99 [facility] Glucose Glucometer (BldC) [M ass/Vol]Ordered By: Sandeep Denson on 08-17-2023 Glucose [Mass/Vol] 267 mg/dL 74-106 [facility] Comment on above: MANAGEMENT OF PATIEN T CARE PER NURSING PROTOCOL Hematocrit Auto (Bld) [Volum e fraction]Ordered By: Nestor Bartlett on 08-17-2023 Hematocrit (Bld) [Volume fraction] 28.8 % 37-47 [facility] Laboratory - Chemistry and C hemistry - challengeOrdered By: Nestor Bartlett on 08-17-2023 CO2 [Moles/Vol] 30.0 mmol/L 21.0-32.0 [facility] Urea nitrogen/Creatinine [Mass ratio] 19.9 mg/mg 10-20 [facility] - Hematology and Cell countsOrdered By: Nestor Bartlett on 08-17-2023 Erythrocyte distribution width (RBC) [Entitic vol] 55.6 fL 35.1-43.9 [facility] Erythrocyte distribution width (RBC) [Ratio] 17.9 % 11.6-14.6 [facility] MCH (RBC) [Entitic mass] 26.1 pg 27.0-32.0 [facility] MCHC Auto (RBC) [Mass/Vol]Or dered By: Nestor Bartlett on 08-17-2023 MCHC (RBC) [Mass/Vol] 30.9 g/dL 32-36 [facility] No Panel InformationOrdered By: Nestor Bartlett on 08-17-2023 Estimated Creatinine Clearance Calc 41.47 ml/min [facility] Estimated GFR (MDRD) Amer 77 mL/min >60 [facility] Comment on above: GFR Calc Estimated GFR (MDRD) Non-Af Amer 64 mL/min >60 [facility] Comment on above: Non- GFR Calc Platelets bldOrdered By: Neida Bartlett on 08-17-2023 Platelets (Bld) [#/Vol] 480 10*3/uL 150-450 [facility] Serum or plasma calcium melanie urement (mass/volume)Ordered By: Nestor Bartlett on 08-17-2023 Calcium [Mass/Vol] 10.6 mg/dL 8.5-10.1 [facility] Serum or plasma creatinine m easurement (mass/volume)Ordered By: Nestor Bartlett on 08-17-2023 Creatinine [Mass/Vol] 0.91 mg/dL 0.55-1.02 [facility] Comment on above: The validity of the calculated GFR & GFRAA in patients over 70 years has not been determined. Clinical correlation is essential. Serum or plasma urea nitroge n measurement (mass/volume)Ordered By: Nestor Bartlett on 08-17-2023 Urea nitrogen [Mass/Vol] 18 mg/dL - [facility] Thin prep Papanicolaou smear with manual screeningOrdered By: Nestor Bartlett on 08-17-2023 Thin prep Papanicolaou smear with manual screening 4 5- [facility] Absolute lymphocyte countOrd ered By: Heydi Amaya on 08-14-2023 Lymphocytes Auto (Unsp spec) [#/Vol] 1.25 10*3/uL 0.83-4.51 [facility] Basophil percentageOrdered B y: Heydi Amaya on 08-14-2023 Basophil percentage 1.7 mg/dL 2.5-4.9 [facility] Basophils/100 WBC (Bld) 0.3 % 0-1 [facility] Eosinophils/100 WBC (Bld) 0.6 % 0-5 [facility] Neutrophils (Bld) [#/Vol] 9.0 10*3/uL 2.0-7.7 [facility] Neutrophils/100 WBC (Bld) 79.7 % 47-70 [facility] Blood lymphocytes/100 leukoc ytesOrdered By: Heydi Amaya on 08-14-2023 Lymphocytes/100 WBC (Bld) 11.1 % 19-41 [facility] Blood monocytes/100 leukocyt esOrdered By: Heydi Amaya on 08-14-2023 Monocytes/100 WBC (Bld) 6.1 % 0-10 [facility] Iron measurement (mass/mass) Ordered By: Nestor Bartlett on 08-14-2023 Iron (Unsp spec) [Mass/Mass] 14 ug/dL 50-170 [facility] - Chemistry and C hemistry - challengeOrdered By: Nestor Bartlett on 08-14-2023 Cobalamin (Vitamin B12) [Mass/Vol] 250 pg/mL 211-911 [facility] - Chemistry and C hemistry - challengeOrdered By: Heydi Amaya on 08-14-2023 Free T4 [Mass/Vol] 1.51 ng/dL 0.76-1.46 [facility] Magnesium [Mass/Vol] 2.1 mg/dL 1.6-2.6 [facility] Laboratory - Hematology and Cell countsOrdered By: Heydi Amaya on 08-14-2023 Immature granulocytes/100 WBC (Bld) 2.200 % 0.0-0.9 [facility] Comment on above: IG% - Immature Granu locytes (promyelocytes, myelocytes and metamyelocytes) > 1% indicates that a LEFT SHIFT is Present. Nucleated RBC/100 WBC (Bld) [Ratio] 0 % 0-5 [facility] No Panel InformationOrdered By: Heydi Amaya on 08-14-2023 Free Triiodothyronine (T3) pg/dL 1.9 pg/mL 2.18-3.98 [facility] Parathyroid Hormone (Intact) 153.7 pg/mL 18.4-80.1 [facility] Thyroid Stimulating Hormone (TSH) 0.01 uIU/mL 0.358-3.74 [facility] Vitamin D 25-Hydroxy 39.9 ng/mL [facility] Comment on above: Vitamin D 25(OH) Sta tus Range Deficiency <20 ng/mL (50nmol/L) Insufficiency 20 - 30 ng/mL (50 - 75 nmol/L) Sufficiency 30 - 100 ng/mL (75 - 250 nmol/L) Toxicity >100 ng/mL (>250 nmol/L) No Panel InformationOrdered By: Nestor Bartlett on 08-14-2023 Total Iron Binding Capacity 197 ug/dL 250-450 [facility] Serum or plasma ferritin rubina surement (mass/volume)Ordered By: Nestor Bartlett on 08-14-2023 Ferritin [Mass/Vol] 1578 ng/mL 8-252 [facility] Serum or plasma folate measu rement (mass/volume)Ordered By: Nestor Bartlett on 08-14-2023 Folate [Mass/Vol] 2.90 ng/mL 3.1-55.4 [facility] Serum or plasma iron saturat ion measurement (mass fraction)Ordered By: Nestor Batrlett on 08-14-2023 Iron saturation [Mass fraction] 7.1 % 15.0-55.0 [facility] Thin prep Papanicolaou smear with manual screeningOrdered By: Heydi Amaya on 08-14-2023 Thin prep Papanicolaou smear with manual screening 285 mOsm/KG 280-301 [facility] Absolute lymphocyte countOrd ered By: Robert Allison on 08-13-2023 Lymphocytes Auto (Unsp spec) [#/Vol] 1.37 10*3/uL 0.83-4.51 [facility] Basophil percentageOrdered B y: Robert Allison on 08-13-2023 Basophil percentage 10-25 SEEN /hpf 0-5 [facility] Lactate [Moles/Vol] 1.2 mmol/L 0.4-2.0 [facility] Basophils/100 WBC (Bld) 0.3 % 0-1 [facility] Bilirubin [Mass/Vol] 0.60 mg/dL 0.20-1.00 [facility] Comment on above: For patients on eltr ombopag therapy, use of Dimension [place] TBIL is not recommended. Chloride [Moles/Vol] 92 mmol/L 98-107 [facility] Eosinophils/100 WBC (Bld) 0.1 % 0-5 [facility] Glucose [Mass/Vol] 212 mg/dL 74-106 [facility] Comment on above: Glucose result great er than or equal to 200 mg/dLsuggests DIABETES MELLITUS per A.D.A. criteria. Neutrophils (Bld) [#/Vol] 12.1 10*3/uL 2.0-7.7 [facility] Neutrophils/100 WBC (Bld) 82.7 % 47-70 [facility] Potassium [Moles/Vol] 3.8 mmol/L 3.5-5.1 [facility] Comment on above: Moderate Hemolysis, Result may be falsely increased. Protein [Mass/Vol] 7.8 g/dL 6.4-8.2 [facility] Sodium [Moles/Vol] 127 mmol/L 136-145 [facility] WBC (Bld) [#/Vol] 14.7 10*3/uL 4.4-11.0 [facility] Bilirubin Test strip Ql (U)O rdered By: Robert Allison on 08-13-2023 Bilirubin Ql (U) Negative Negative [facility] Blood erythrocytes count (nu mber/volume)Ordered By: Robert Allison on 08-13-2023 RBC (Bld) [#/Vol] 3.83 10*6/uL 4.2-5.4 [facility] Blood hemoglobin measurement (mass/volume)Ordered By: Robert Allison on 08-13-2023 Hemoglobin (Bld) [Mass/Vol] 10.0 g/dL 12.0-15.0 [facility] Blood lymphocytes/100 leukoc ytesOrdered By: Robert Allison on 08-13-2023 Lymphocytes/100 WBC (Bld) 9.4 % 19-41 [facility] Blood monocytes/100 leukocyt esOrdered By: Robert Allison on 08-13-2023 Monocytes/100 WBC (Bld) 6.1 % 0-10 [facility] Blood platelet mean volumeOr dered By: Robert Allison on 08-13-2023 Platelet mean volume (Bld) [Entitic vol] 10.8 fL 6.2-12.0 [facility] Culture, urineOrdered By: Ester Allison on 08-13-2023 Bacteria identified Cx Nom (U) Klebsiella pneumoniae sp pneum [facility] Determination of erythrocyte mean corpuscular volume (MCV)Ordered By: Robert Allison on 08-13-2023 MCV (RBC) [Entitic vol] 85.1 fL 81-99 [facility] Hematocrit Auto (Bld) [Volum e fraction]Ordered By: Robert Allison on 08-13-2023 Hematocrit (Bld) [Volume fraction] 32.6 % 37-47 [facility] Influenza virus A and B and SARS-CoV-2 (COVID-19) Ag panel - Upper respiratory specimOrdered By: Robert Allison on 08-13-2023 SARS-CoV-2 (COVID-19) RNA BEBETO+probe Ql (Resp) [facility] Ketones Test strip Ql (U)Ord ered By: Robert Allison on 08-13-2023 Ketones Ql (U) 50 mg/dl Negative [facility] Laboratory - Chemistry and C hemistry - challengeOrdered By: Heydi Amaya on 08-13-2023 Sodium (U) [Moles/Vol] 24 mmol/L Not Establ. [facility] Laboratory - Chemistry and C hemistry - challengeOrdered By: Robert Allison on 08-13-2023 ALP [Catalytic activity/Vol] 105 U/L 45-117 [facility] ALT [Catalytic activity/Vol] 29 U/L 13-56 [facility] CO2 [Moles/Vol] 23.0 mmol/L 21.0-32.0 [facility] Globulin (S) [Mass/Vol] 5.6 g/dL 2.2-4.2 [facility] Urea nitrogen/Creatinine [Mass ratio] 26.3 mg/mg 10-20 [facility] - Hematology and Cell countsOrdered By: Robert Allison on 08-13-2023 Erythrocyte distribution width (RBC) [Entitic vol] 53.7 fL 35.1-43.9 [facility] Erythrocyte distribution width (RBC) [Ratio] 17.2 % 11.6-14.6 [facility] Immature granulocytes/100 WBC (Bld) 1.400 % 0.0-0.9 [facility] Comment on above: IG% - Immature Granu locytes (promyelocytes, myelocytes and metamyelocytes) > 1% indicates that a LEFT SHIFT is Present. MCH (RBC) [Entitic mass] 26.1 pg 27.0-32.0 [facility] Nucleated RBC/100 WBC (Bld) [Ratio] 0 % 0-5 [facility] - Microbiology an d Antimicrobial susceptibilityOrdered By: Robert Allison on 08-13-2023 Bacteria identified Cx Nom (Bld) GNR lactose fashion photographer [facility] MCHC Auto (RBC) [Mass/Vol]Or dered By: Rem Ungmasood on 08-13-2023 MCHC (RBC) [Mass/Vol] 30.7 g/dL 32-36 [facility] Mucus LM Ql (Urine sed)Order ed By: Remus Allison on 08-13-2023 Mucus Ql (Urine sed) 0 SEEN /hpf [facility] Nitrite Test strip Ql (U)Ord ered By: Rem Keegan on 08-13-2023 Nitrite Ql (U) Negative Negative [facility] No Panel InformationOrdered By: Heydi Amaya on 08-13-2023 Urine Potassium 8.0 mmol/L Not Establ. [facility] Urine Urea Nitrogen 334 mg/dL NO RANGE EST. [facility] No Panel InformationOrdered By: Robert Allison on 08-13-2023 Estimated Creatinine Clearance Calc 31.98 ml/min [facility] Estimated GFR (MDRD) Amer 57 mL/min >60 [facility] Comment on above: GFR Calc Estimated GFR (MDRD) Non-Af Amer 47 mL/min >60 [facility] Comment on above: Non- GFR Calc Troponin I High Sensitivity 39 pg/mL 3.0-54.0 [facility] Comment on above: Please Note: New Rosi t Units and Gender Specific Reference Ranges. For more information see Policy Stat Procedure [place] High Sensitivity Troponin (TNIH) and attachments. Platelets bldOrdered By: Harriet Keegan on 08-13-2023 Platelets (Bld) [#/Vol] 412 10*3/uL 150-450 [facility] Protein Test strip Ql (U)Ord ered By: Rem Ungmasood on 08-13-2023 Protein Ql (U) 30 mg/dl Negative [facility] Serum or plasma albumin melanie urement (mass/volume)Ordered By: Remus Allison on 08-13-2023 Albumin [Mass/Vol] 2.2 g/dL 3.2-5.0 [facility] Serum or plasma albumin/glob ulin mass ratioOrdered By: Robert Allison on 08-13-2023 Albumin/Globulin [Mass ratio] 0.4 {ratio} 0.9-2.4 [facility] Serum or plasma calcium melanie urement (mass/volume)Ordered By: Robert Allison on 08-13-2023 Calcium [Mass/Vol] 10.5 mg/dL 8.5-10.1 [facility] Serum or plasma creatinine m easurement (mass/volume)Ordered By: Robert Allison on 08-13-2023 Creatinine [Mass/Vol] 1.18 mg/dL 0.55-1.02 [facility] Comment on above: The validity of the calculated GFR & GFRAA in patients over 70 years has not been determined. Clinical correlation is essential. Serum or plasma urea nitroge n measurement (mass/volume)Ordered By: Robert Allison on 08-13-2023 Urea nitrogen [Mass/Vol] 31 mg/dL 7-18 [facility] Squamous epithelial cells de tection in urine sediment by light microscopyOrdered By: Robert Allison on 08-13-2023 Epithelial cells.squamous LM Ql (Urine sed) 0 SEEN /hpf 5-10 [facility] Thin prep Papanicolaou smear with manual screeningOrdered By: Heydi Amaya on 08-13-2023 Thin prep Papanicolaou smear with manual screening 20 mmol/L Not Establ. [facility] Thin prep Papanicolaou smear with manual screeningOrdered By: Robert Allison on 08-13-2023 Thin prep Papanicolaou smear with manual screening 36 U/L 15-37 [facility] Comment on above: Moderate Hemolysis, Result may be falsely increased. Thin prep Papanicolaou smear with manual screening 08 04- [facility] Upper respiratory specimen i nfluenza A virus, influenza B virus, and severe acute resOrdered By: Robert Allison on 08-13-2023 Upper respiratory specimen influenza A virus, influenza B virus, and severe acute res [facility] Urine blood detectionOrdered By: Robert Allison on 08-13-2023 RBC Ql (U) 50 /ul Negative [facility] RBC Ql (U) 0-5 SEEN /hpf 0-5 [facility] Urine clarityOrdered By: Harriet Allison on 08-13-2023 Clarity (U) Sl. Cloudy Clear [facility] Urine color determinationOrd ered By: Robert Allison on 08-13-2023 Color (U) Yellow Yellow [facility] Urine creatinine measurement (mass/volume)Ordered By: Heydi Amaya on 08-13-2023 Creatinine (U) [Mass/Vol] 37.60 mg/dL NO RANGE EST. [facility] Urine glucose detectionOrder ed By: Robert Allison on 08-13-2023 Glucose Ql (U) 1000 mg/dl Normal [facility] Urine leukocyte esterase det ection by dipstickOrdered By: Robert Allison on 08-13-2023 Leukocyte esterase Test strip Ql (U) 500 /ul Negative [facility] Urine osmolality measurement Ordered By: Heydi Amaya on 08-13-2023 Osmolality (U) [Osmolality] 269 mOsm/KG >50 [facility] Comment on above: Normal Urine Referen ce Ranges Random: 50 - 1200 mOsm/kg H20 depending on fluid intake Random: >850 mOsm/kg after 12 hour fluid restriction 24 hour: ~300 - 900 mOsm/kg H2O Urine pHOrdered By: Robert Mahajan gur on 08-13-2023 pH (U) 5.0 [pH] 5.0 - 8.0 [facility] Urine sediment bacteria coun t by microscopy (number/high power field)Ordered By: Robert Allison on 08-13-2023 Bacteria LM.HPF (Urine sed) [#/Area] 3 /[HPF] None Seen [facility] Urine specific gravity measu rementOrdered By: Robert Allison on 08-13-2023 Specific gravity (U) [Rel density] 1.015 1.002-1.030 [facility] Urobilinogen Auto test strip Ql (U)Ordered By: Robert Alilson on 08-13-2023 Urobilinogen Ql (U) Normal mg/dl Normal [facility] Absolute lymphocyte countOrd ered By: Winston Gill on 07-18-2023 Lymphocytes Auto (Unsp spec) [#/Vol] 0.92 10*3/uL 0.83-4.51 [facility] Basophil percentageOrdered B y: Winston Gill on 07-18-2023 Basophil percentage >100 SEEN /hpf 0-5 [facility] Basophils/100 WBC (Bld) 0.4 % 0-1 [facility] Bilirubin [Mass/Vol] 0.40 mg/dL 0.20-1.00 [facility] Comment on above: For patients on eltr ombopag therapy, use of Dimension [place] TBIL is not recommended. Chloride [Moles/Vol] 95 mmol/L 98-107 [facility] Eosinophils/100 WBC (Bld) 0.7 % 0-5 [facility] Glucose [Mass/Vol] 139 mg/dL 74-106 [facility] Comment on above: Fasting Glucose resu lt greater than or equal to 126 mg/dL suggests DIABETES MELLITUS per A.D.A. criteria. Neutrophils (Bld) [#/Vol] 5.4 10*3/uL 2.0-7.7 [facility] Neutrophils/100 WBC (Bld) 76.5 % 47-70 [facility] Potassium [Moles/Vol] 3.7 mmol/L 3.5-5.1 [facility] Protein [Mass/Vol] 7.4 g/dL 6.4-8.2 [facility] Sodium [Moles/Vol] 131 mmol/L 136-145 [facility] WBC (Bld) [#/Vol] 7.0 10*3/uL 4.4-11.0 [facility] Bilirubin Test strip Ql (U)O rdered By: Winston Gill on 07-18-2023 Bilirubin Ql (U) Negative Negative [facility] Blood erythrocytes count (nu mber/volume)Ordered By: Winston Gill on 07-18-2023 RBC (Bld) [#/Vol] 3.85 10*6/uL 4.2-5.4 [facility] Blood hemoglobin measurement (mass/volume)Ordered By: Winston Gill on 07-18-2023 Hemoglobin (Bld) [Mass/Vol] 10.8 g/dL 12.0-15.0 [facility] Blood lymphocytes/100 leukoc ytesOrdered By: Winston Gill on 07-18-2023 Lymphocytes/100 WBC (Bld) 13.1 % 19-41 [facility] Blood monocytes/100 leukocyt esOrdered By: Winston Gill on 07-18-2023 Monocytes/100 WBC (Bld) 8.0 % 0-10 [facility] Blood platelet mean volumeOr dered By: Winston Gill on 07-18-2023 Platelet mean volume (Bld) [Entitic vol] 10.0 fL 6.2-12.0 [facility] Culture, urineOrdered By: Devyn Rea on 07-18-2023 Bacteria identified Cx Nom (U) Escherichia coli [facility] Bacteria identified Cx Nom (U) Klebsiella pneumoniae sp pneum [facility] Determination of erythrocyte mean corpuscular volume (MCV)Ordered By: Winston Gill on 07-18-2023 MCV (RBC) [Entitic vol] 87.0 fL 81-99 [facility] Hematocrit Auto (Bld) [Volum e fraction]Ordered By: Winston Gill on 07-18-2023 Hematocrit (Bld) [Volume fraction] 33.5 % 37-47 [facility] Ketones Test strip Ql (U)Ord ered By: Winston Gill on 07-18-2023 Ketones Ql (U) 50 mg/dl Negative [facility] - Chemistry and C hemistry - challengeOrdered By: Winston Gill on 07-18-2023 ALP [Catalytic activity/Vol] 93 U/L 45-117 [facility] ALT [Catalytic activity/Vol] 13 U/L 13-56 [facility] CO2 [Moles/Vol] 27.0 mmol/L 21.0-32.0 [facility] Globulin (S) [Mass/Vol] 4.8 g/dL 2.2-4.2 [facility] Urea nitrogen/Creatinine [Mass ratio] 15.6 mg/mg 10-20 [facility] - Hematology and Cell countsOrdered By: Winston Gill on 07-18-2023 Erythrocyte distribution width (RBC) [Entitic vol] 52.4 fL 35.1-43.9 [facility] Erythrocyte distribution width (RBC) [Ratio] 16.4 % 11.6-14.6 [facility] Immature granulocytes/100 WBC (Bld) 1.300 % 0.0-0.9 [facility] Comment on above: IG% - Immature Granu locytes (promyelocytes, myelocytes and metamyelocytes) > 1% indicates that a LEFT SHIFT is Present. MCH (RBC) [Entitic mass] 28.1 pg 27.0-32.0 [facility] Nucleated RBC/100 WBC (Bld) [Ratio] 0 % 0-5 [facility] MCHC Auto (RBC) [Mass/Vol]Or dered By: Winston Gill on 07-18-2023 MCHC (RBC) [Mass/Vol] 32.2 g/dL 32-36 [facility] Mucus LM Ql (Urine sed)Order ed By: Winston Gill on 07-18-2023 Mucus Ql (Urine sed) 0 SEEN /hpf [facility] Nitrite Test strip Ql (U)Ord ered By: Winston Gill on 07-18-2023 Nitrite Ql (U) Negative Negative [facility] No Panel InformationOrdered By: Winston Gill on 07-18-2023 Estimated Creatinine Clearance Calc 45.46 ml/min [facility] Estimated GFR (MDRD) Amer 85 mL/min >60 [facility] Comment on above: GFR Calc Estimated GFR (MDRD) Non-Af Amer 70 mL/min >60 [facility] Comment on above: Non- GFR Calc Platelets bldOrdered By: Tre Gill on 07-18-2023 Platelets (Bld) [#/Vol] 370 10*3/uL 150-450 [facility] Protein Test strip Ql (U)Ord ered By: Winston Gill on 07-18-2023 Protein Ql (U) 100 mg/dl Negative [facility] Serum or plasma albumin melanie urement (mass/volume)Ordered By: Winston Gill on 07-18-2023 Albumin [Mass/Vol] 2.6 g/dL 3.2-5.0 [facility] Serum or plasma albumin/glob ulin mass ratioOrdered By: Winston Gill on 07-18-2023 Albumin/Globulin [Mass ratio] 0.5 {ratio} 0.9-2.4 [facility] Serum or plasma calcium melanie urement (mass/volume)Ordered By: Winston Gill on 07-18-2023 Calcium [Mass/Vol] 10.3 mg/dL 8.5-10.1 [facility] Serum or plasma creatinine m easurement (mass/volume)Ordered By: Winston Gill on 07-18-2023 Creatinine [Mass/Vol] 0.83 mg/dL 0.55-1.02 [facility] Comment on above: The validity of the calculated GFR & GFRAA in patients over 70 years has not been determined. Clinical correlation is essential. Serum or plasma urea nitroge n measurement (mass/volume)Ordered By: Winston Gill on 07-18-2023 Urea nitrogen [Mass/Vol] 13 mg/dL 7- [facility] Squamous epithelial cells de tection in urine sediment by light microscopyOrdered By: Winston Gill on 07-18-2023 Epithelial cells.squamous LM Ql (Urine sed) 5-10 SEEN /hpf 5-10 [facility] Thin prep Papanicolaou smear with manual screeningOrdered By: Winston Gill on 07-18-2023 Thin prep Papanicolaou smear with manual screening 26 U/L 15-37 [facility] Thin prep Papanicolaou smear with manual screening 9 5-15 [facility] Urine blood detectionOrdered By: Winston Gill on 07-18-2023 RBC Ql (U) 50 /ul Negative [facility] RBC Ql (U) 0-5 SEEN /hpf 0-5 [facility] Urine clarityOrdered By: Tre Gill on 07-18-2023 Clarity (U) Cloudy Clear [facility] Urine color determinationOrd ered By: Winston Gill on 07-18-2023 Color (U) Yellow Yellow [facility] Urine glucose detectionOrder ed By: Winston Gill on 07-18-2023 Glucose Ql (U) 1000 mg/dl Normal [facility] Urine leukocyte esterase det ection by dipstickOrdered By: Winston Gill on 07-18-2023 Leukocyte esterase Test strip Ql (U) 500 /ul Negative [facility] Urine pHOrdered By: Winston castillo on 07-18-2023 pH (U) 5.0 [pH] 5.0 - 8.0 [facility] Urine sediment bacteria coun t by microscopy (number/high power field)Ordered By: Winston Gill on 07-18-2023 Bacteria LM.HPF (Urine sed) [#/Area] 3 /[HPF] None Seen [facility] Urine sediment leukocyte lisandro t count by microscopy (number/low power field)Ordered By: Winston Gill on 07-18-2023 WBC casts LM.LPF (Urine sed) [#/Area] 0-5 SEEN /lpf None Seen [facility] Urine specific gravity measu rementOrdered By: Winston Gill on 07-18-2023 Specific gravity (U) [Rel density] 1.020 1.002-1.030 [facility] Urobilinogen Auto test strip Ql (U)Ordered By: Winston Gill on 07-18-2023 Urobilinogen Ql (U) 1 mg/dl Normal [facility] No Panel Informationon 07-15 POC SARS CoV-2 Antigen Negative [facility] Amorphous sediment detection in urine sediment by light microscopyOrdered By: Cheryl Mendez on 06-01-2023 Amorphous sediment LM Ql (Urine sed) 1+ URATE [facility] Basophil percentageOrdered B y: Cheryl Mendez on 06-01-2023 Basophil percentage 5-10 SEEN /hpf 0-5 [facility] Bilirubin Test strip Ql (U)O rdered By: Cheryl Mendez on 06-01-2023 Bilirubin Ql (U) Negative Negative [facility] Ketones Test strip Ql (U)Ord ered By: Cheryl Mendez on 06-01-2023 Ketones Ql (U) Negative Negative [facility] Mucus LM Ql (Urine sed)Order ed By: Cheryl Mendez on 06-01-2023 Mucus Ql (Urine sed) 0 SEEN /hpf [facility] Nitrite Test strip Ql (U)Ord ered By: Cheryl Mendez on 06-01-2023 Nitrite Ql (U) Negative Negative [facility] No Panel InformationOrdered By: Cheryl Mendez on 06-01-2023 Urine Microalbumin/Creatinine Ratio 173.1 mg/g CRE <30 [facility] Protein Test strip Ql (U)Ord ered By: Cheryl Mendez on 06-01-2023 Protein Ql (U) 15 mg/dl Negative [facility] Squamous epithelial cells de tection in urine sediment by light microscopyOrdered By: Cheryl Mendez on 06-01-2023 Epithelial cells.squamous LM Ql (Urine sed) 0-5 SEEN /hpf 5-10 [facility] Thin prep Papanicolaou smear with manual screeningOrdered By: Cheryl Mendez on 06-01-2023 Thin prep Papanicolaou smear with manual screening 98.3 mg/L NO RANGE EST. [facility] Urine blood detectionOrdered By: Cheryl Mendez on 06-01-2023 RBC Ql (U) 25 /ul Negative [facility] RBC Ql (U) 0-5 SEEN /hpf 0-5 [facility] Urine clarityOrdered By: Dyana camerondavey Mendez on 06-01-2023 Clarity (U) Cloudy Clear [facility] Urine color determinationOrd ered By: Cheryl Mendez on 06-01-2023 Color (U) Yellow Yellow [facility] Urine creatinine measurement (mass/volume)Ordered By: Cheryl Mendez on 06-01-2023 Creatinine (U) [Mass/Vol] 56.80 mg/dL NO RANGE EST. [facility] Urine glucose detectionOrder ed By: Cheryl Mendez on 06-01-2023 Glucose Ql (U) 1000 mg/dl Normal [facility] Urine leukocyte esterase det ection by dipstickOrdered By: Cheryl Mendez on 06-01-2023 Leukocyte esterase Test strip Ql (U) 100 /ul Negative [facility] Urine pHOrdered By: Nikki Mendez on 06-01-2023 pH (U) 5.0 [pH] 5.0 - 8.0 [facility] Urine sediment bacteria coun t by microscopy (number/high power field)Ordered By: Cheryl Mendez on 06-01-2023 Bacteria LM.HPF (Urine sed) [#/Area] 3 /[HPF] None Seen [facility] Urine specific gravity measu rementOrdered By: Cheryl Mendez on 06-01-2023 Specific gravity (U) [Rel density] 1.015 1.002-1.030 [facility] Urobilinogen Auto test strip Ql (U)Ordered By: Cheryl Mendez on 06-01-2023 Urobilinogen Ql (U) Normal mg/dl Normal [facility] Basophil percentageOrdered B y: Cheryl Mendez on 05-27-2023 Basophil percentage 2.7 mg/dL 2.5-4.[address] [facility] Chloride [Moles/Vol] 102 mmol/L 98-[address] [facility] Glucose [Mass/Vol] 220 mg/dL 74-[address] [facility] Comment on above: Glucose result great er than or equal to 200 mg/dLsuggests DIABETES MELLITUS per A.D.A. criteria. Potassium [Moles/Vol] 3.9 mmol/L 3.5-5.1 [facility] Sodium [Moles/Vol] 137 mmol/L 136-145 [facility] - Chemistry and C hemistry - challengeOrdered By: Cheryl Mendez on 05-27-2023 CO2 [Moles/Vol] 28.0 mmol/L 21.0-32.0 [facility] Urea nitrogen/Creatinine [Mass ratio] 10.0 mg/mg 10-20 [facility] No Panel InformationOrdered By: Cheryl Mendez on 05-27-2023 Estimated GFR (MDRD) Amer 89 mL/min >60 [facility] Comment on above: GFR Calc Estimated GFR (MDRD) Non-Af Amer 73 mL/min >60 [facility] Comment on above: Non- GFR Calc Parathyroid Hormone (Intact) 164.3 pg/mL 18.4-80.1 [facility] Vitamin D 25-Hydroxy 45.4 ng/mL [facility] Comment on above: Vitamin D 25(OH) Sta tus Range Deficiency <20 ng/mL (50nmol/L) Insufficiency 20 - 30 ng/mL (50 - 75 nmol/L) Sufficiency 30 - 100 ng/mL (75 - 250 nmol/L) Toxicity >100 ng/mL (>250 nmol/L) Serum or plasma albumin melanie urement (mass/volume)Ordered By: Cheryl Mendez on 05-27-2023 Albumin [Mass/Vol] 2.9 g/dL 3.2-5.0 [facility] Serum or plasma calcium melanie urement (mass/volume)Ordered By: Cheryl Mendez on 05-27-2023 Calcium [Mass/Vol] 10.7 mg/dL 8.5-10.1 [facility] Serum or plasma creatinine m easurement (mass/volume)Ordered By: Cheryl Mendez on 05-27-2023 Creatinine [Mass/Vol] 0.80 mg/dL 0.55-1.02 [facility] Comment on above: The validity of the calculated GFR & GFRAA in patients over 70 years has not been determined. Clinical correlation is essential. Serum or plasma urea nitroge n measurement (mass/volume)Ordered By: Cheryl Mendez on 05-27-2023 Urea nitrogen [Mass/Vol] 8 mg/dL 7-18 [facility] Culture, urineOrdered By: Allan Anguiano on 03-24-2023 Bacteria identified Cx Nom (U) Klebsiella pneumoniae sp pneum [facility] Bacteria identified Cx Nom (U) Klebsiella pneumoniae sp pneum [facility] Absolute lymphocyte countOrd ered By: Dr. Smiley on 01-28-2023 Lymphocytes Auto (Unsp spec) [#/Vol] 3.27 10*3/uL 0.83-4.51 [facility] Absolute lymphocyte countOrd ered By: Dr. Lockwood on 01-28-2023 Lymphocytes Auto (Unsp spec) [#/Vol] 2.27 10*3/uL 0.83-4.51 [facility] Basophil percentageOrdered B y: Dr. Smiley on 01-28-2023 Basophils/100 WBC (Bld) 0.5 % 0-1 [facility] Bilirubin [Mass/Vol] 0.30 mg/dL 0.20-1.00 [facility] Comment on above: For patients on eltr ombopag therapy, use of Dimension [place] TBIL is not recommended. Chloride [Moles/Vol] 99 mmol/L 98-107 [facility] Cholesterol [Mass/Vol] 145 mg/dL <200 [facility] Comment on above: <200 mg/dL Desirable 200-240 mg/dL Borderline >240 mg/dL High Risk Eosinophils/100 WBC (Bld) 2.3 % 0-5 [facility] Glucose [Mass/Vol] 182 mg/dL 74-106 [facility] Comment on above: Fasting Glucose resu lt greater than or equal to 126 mg/dL suggests DIABETES MELLITUS per A.D.A. criteria. Neutrophils (Bld) [#/Vol] 3.9 10*3/uL 2.0-7.7 [facility] Neutrophils/100 WBC (Bld) 50.0 % 47-70 [facility] Potassium [Moles/Vol] 3.6 mmol/L 3.5-5.1 [facility] Protein [Mass/Vol] 7.9 g/dL 6.4-8.2 [facility] Sodium [Moles/Vol] 134 mmol/L 136-145 [facility] Triglyceride [Mass/Vol] 119 mg/dL <199 [facility] Comment on above: The drugs N-Acetylcy steine and Metamizole may falsely depress this assay.Serum Triglycerides Reference Interval Normal <150 mg/dL Borderline high 150 - 199 mg/dL High 200 - 499 mg/dL Very High > or = 500 mg/dL WBC (Bld) [#/Vol] 7.7 10*3/uL 4.4-11.0 [facility] Basophil percentageOrdered B y: Dr. Lockwood on 01-28-2023 Basophils/100 WBC (Bld) 0.8 % 0-1 [facility] Chloride [Moles/Vol] 102 mmol/L 98-107 [facility] Eosinophils/100 WBC (Bld) 2.6 % 0-5 [facility] Glucose [Mass/Vol] 137 mg/dL 74-106 [facility] Comment on above: Fasting Glucose resu lt greater than or equal to 126 mg/dL suggests DIABETES MELLITUS per A.D.A. criteria. Neutrophils (Bld) [#/Vol] 3.8 10*3/uL 2.0-7.7 [facility] Neutrophils/100 WBC (Bld) 56.6 % 47-70 [facility] Potassium [Moles/Vol] 3.8 mmol/L 3.5-5.1 [facility] Protein [Mass/Vol] 7.4 g/dL 6.4-8.2 [facility] Sodium [Moles/Vol] 136 mmol/L 136-145 [facility] WBC (Bld) [#/Vol] 6.6 10*3/uL 4.4-11.0 [facility] Blood erythrocytes count (nu mber/volume)Ordered By: Dr. Smiley on 01-28-2023 RBC (Bld) [#/Vol] 4.10 10*6/uL 4.2-5.4 [facility] Blood erythrocytes count (nu mber/volume)Ordered By: Dr. Lockwood on 01-28-2023 RBC (Bld) [#/Vol] 3.83 10*6/uL 4.2-5.4 [facility] Blood hemoglobin measurement (mass/volume)Ordered By: Dr. Smiley on 01-28-2023 Hemoglobin (Bld) [Mass/Vol] 11.5 g/dL 12.0-15.0 [facility] Blood hemoglobin measurement (mass/volume)Ordered By: Dr. Lockwood on 01-28-2023 Hemoglobin (Bld) [Mass/Vol] 11.1 g/dL 12.0-15.0 [facility] Blood lymphocytes/100 leukoc ytesOrdered By: Dr. Smiley on 01-28-2023 Lymphocytes/100 WBC (Bld) 42.3 % 19-41 [facility] Blood lymphocytes/100 leukoc ytesOrdered By: Dr. Lockwood on 01-28-2023 Lymphocytes/100 WBC (Bld) 34.2 % 19-41 [facility] Blood monocytes/100 leukocyt esOrdered By: Dr. Smiley on 01-28-2023 Monocytes/100 WBC (Bld) 4.8 % 0-10 [facility] Blood monocytes/100 leukocyt esOrdered By: Dr. Lockwood on 01-28-2023 Monocytes/100 WBC (Bld) 5.6 % 0-10 [facility] Blood platelet mean volumeOr dered By: Dr. Smiley on 01-28-2023 Platelet mean volume (Bld) [Entitic vol] 9.8 fL 6.2-12.0 [facility] Blood platelet mean volumeOr dered By: Dr. Lockwood on 01-28-2023 Platelet mean volume (Bld) [Entitic vol] 9.3 fL 6.2-12.0 [facility] Determination of erythrocyte mean corpuscular volume (MCV)Ordered By: Dr. Smiley on 01-28-2023 MCV (RBC) [Entitic vol] 90.7 fL 81-99 [facility] Determination of erythrocyte mean corpuscular volume (MCV)Ordered By: Dr. Lockwood on 01-28-2023 MCV (RBC) [Entitic vol] 87.7 fL 81-99 [facility] Hematocrit Auto (Bld) [Volum e fraction]Ordered By: Dr. Smiley on 01-28-2023 Hematocrit (Bld) [Volume fraction] 37.2 % 37-47 [facility] Hematocrit Auto (Bld) [Volum e fraction]Ordered By: Dr. Lockwood on 01-28-2023 Hematocrit (Bld) [Volume fraction] 33.6 % 37-47 [facility] - Chemistry and C hemistry - challengeOrdered By: Dr. Smiley on 01-28-2023 ALP [Catalytic activity/Vol] 153 U/L 45-117 [facility] ALT [Catalytic activity/Vol] 20 U/L 13-56 [facility] CO2 [Moles/Vol] 25.0 mmol/L 21.0-32.0 [facility] Globulin (S) [Mass/Vol] 4.9 g/dL 2.2-4.2 [facility] Urea nitrogen/Creatinine [Mass ratio] 10.7 mg/mg 10 [facility] - Chemistry and C hemistry - challengeOrdered By: Dr. Lockwood on 01-28-2023 ALP [Catalytic activity/Vol] 140 U/L 45-117 [facility] CO2 [Moles/Vol] 27.0 mmol/L 21.0-32.0 [facility] Free T4 [Mass/Vol] 1.11 ng/dL 0.76-1.[address] [facility] Globulin (S) [Mass/Vol] 4.5 g/dL 2.2-4.2 [facility] Urea nitrogen/Creatinine [Mass ratio] 11.5 mg/mg 06-19 [facility] - Hematology and Cell countsOrdered By: Dr. Smiley on 01-28-2023 Erythrocyte distribution width (RBC) [Entitic vol] 49.7 fL 35.1-43.9 [facility] Erythrocyte distribution width (RBC) [Ratio] 14.9 % 11.6-14.6 [facility] Immature granulocytes/100 WBC (Bld) 0.100 % 0.0-0.9 [facility] Comment on above: IG% - Immature Granu locytes (promyelocytes, myelocytes and metamyelocytes) > 1% indicates that a LEFT SHIFT is Present. MCH (RBC) [Entitic mass] 28.0 pg 27.0-32.0 [facility] Nucleated RBC/100 WBC (Bld) [Ratio] 0 % 0-5 [facility] - Hematology and Cell countsOrdered By: Dr. Lockwood on 01-28-2023 Erythrocyte distribution width (RBC) [Entitic vol] 47.3 fL 35.1-43.9 [facility] Erythrocyte distribution width (RBC) [Ratio] 14.8 % 11.6-14.6 [facility] Immature granulocytes/100 WBC (Bld) 0.200 % 0.0-0.9 [facility] Comment on above: IG% - Immature Granu locytes (promyelocytes, myelocytes and metamyelocytes) > 1% indicates that a LEFT SHIFT is Present. MCH (RBC) [Entitic mass] 29.0 pg 27.0-32.0 [facility] MCHC Auto (RBC) [Mass/Vol]Or dered By: Dr. Smiley on 01-28-2023 MCHC (RBC) [Mass/Vol] 30.9 g/dL -36 [facility] MCHC Auto (RBC) [Mass/Vol]Or dered By: Dr. Lockwood on 01-28-2023 MCHC (RBC) [Mass/Vol] 33.0 g/dL -36 [facility] Comment on above: Delta: 30.9 on 01/280 No Panel InformationOrdered By: Dr. Lockwood on 01-28-2023 Estimated Creatinine Clearance Calc 37.74 ml/min [facility] Estimated GFR (MDRD) Amer 91 mL/min >60 [facility] Comment on above: GFR Calc Estimated GFR (MDRD) Non-Af Amer 75 mL/min >60 [facility] Comment on above: Non- GFR Calc Free Triiodothyronine (T3) pg/dL 2.9 pg/mL 2.18-3.98 [facility] No Panel InformationOrdered By: Dr. Smiley on 01-28-2023 Estimated GFR (MDRD) Amer 84 mL/min >60 [facility] Comment on above: GFR Calc Estimated GFR (MDRD) Non-Af Amer 70 mL/min >60 [facility] Comment on above: Non- GFR Calc Parathyroid Hormone (Intact) 112.9 pg/mL 18.4-80.1 [facility] Thyroid Stimulating Hormone (TSH) 0.02 uIU/mL 0.358-3.74 [facility] Vitamin D 25-Hydroxy 66.1 ng/mL [facility] Comment on above: Vitamin D 25(OH) Sta tus Range Deficiency <20 ng/mL (50nmol/L) Insufficiency 20 - 30 ng/mL (50 - 75 nmol/L) Sufficiency 30 - 100 ng/mL (75 - 250 nmol/L) Toxicity >100 ng/mL (>250 nmol/L) Platelets bldOrdered By: Dr. Smiley on 01-28-2023 Platelets (Bld) [#/Vol] 349 10*3/uL 150-450 [facility] Platelets bldOrdered By: Dr. Lockwood on 01-28-2023 Platelets (Bld) [#/Vol] 285 10*3/uL 150-450 [facility] Serum or plasma albumin melanie urement (mass/volume)Ordered By: Dr. Smiley on 01-28-2023 Albumin [Mass/Vol] 3.0 g/dL 3.2-5.0 [facility] Serum or plasma albumin melanie urement (mass/volume)Ordered By: Dr. Lockwood on 01-28-2023 Albumin [Mass/Vol] 2.9 g/dL 3.2-5.0 [facility] Serum or plasma albumin/glob ulin mass ratioOrdered By: Dr. Smiley on 01-28-2023 Albumin/Globulin [Mass ratio] 0.6 {ratio} 0.9-2.4 [facility] Serum or plasma calcium melanie urement (mass/volume)Ordered By: Dr. Smiley on 01-28-2023 Calcium [Mass/Vol] 11.5 mg/dL 8.5-10.1 [facility] Serum or plasma calcium melanie urement (mass/volume)Ordered By: Dr. Lockwood on 01-28-2023 Calcium [Mass/Vol] 11.4 mg/dL 8.5-10.1 [facility] Serum or plasma cholesterol in HDL measurement (mass/volume)Ordered By: Dr. Smiley on 01-28-2023 Cholesterol in HDL [Mass/Vol] 46 mg/dL >40 [facility] Comment on above: The drugs N-Acetylcy steine and Metamizole may falsely depress this assay. Reference Range HDL <40 mg/dL Low HDL Cholesterol HDL >or= 60 mg/dL High HDL Cholesterol Serum or plasma cholesterol in VLDL measurement (mass/volume)Ordered By: Dr. Smiley on 01-28-2023 Cholesterol in VLDL [Mass/Vol] 24 mg/dL 5-40 [facility] Serum or plasma creatinine m easurement (mass/volume)Ordered By: Dr. Smiley on 01-28-2023 Creatinine [Mass/Vol] 0.84 mg/dL 0.55-1.02 [facility] Comment on above: The validity of the calculated GFR & GFRAA in patients over 70 years has not been determined. Clinical correlation is essential. Serum or plasma creatinine m easurement (mass/volume)Ordered By: Dr. Lockwood on 01-28-2023 Creatinine [Mass/Vol] 0.78 mg/dL 0.55-1.02 [facility] Comment on above: The validity of the calculated GFR & GFRAA in patients over 70 years has not been determined. Clinical correlation is essential. Serum or plasma low density lipoprotein (LDL) cholesterol measurement (mass/volume)Ordered By: Dr. Smiley on 01-28-2023 Cholesterol in LDL [Mass/Vol] 75 mg/dL 0-130 [facility] Serum or plasma urea nitroge n measurement (mass/volume)Ordered By: Dr. Smiley on 01-28-2023 Urea nitrogen [Mass/Vol] 9 mg/dL 7-18 [facility] Thin prep Papanicolaou smear with manual screeningOrdered By: Dr. Smiley on 01-28-2023 Thin prep Papanicolaou smear with manual screening 22 U/L [facility] Thin prep Papanicolaou smear with manual screening 10 01-12 [facility] Thin prep Papanicolaou smear with manual screeningOrdered By: Dr. Lockwood on 01-28-2023 Thin prep Papanicolaou smear with manual screening 18 U/L [facility] Thin prep Papanicolaou smear with manual screening 7 - [facility] Whole blood hemoglobin A1c/t otal hemoglobin ratio (mass fraction)Ordered By: Dr. Smiley on 01-28-2023 HbA1c (Bld) [Mass fraction] 7.5 % 3.8-5.6 [facility] Comment on above: Normal < 5.7 % Predi abetic 5.7 - 6.4 % Diabetic >or= 6.5 % Please note range changes. Basophil percentageOrdered B y: Dr. Smiley on 12-09-2022 Bilirubin [Mass/Vol] 0.20 mg/dL 0.20-1.00 [facility] Comment on above: For patients on eltr ombopag therapy, use of Dimension [place] TBIL is not recommended. Chloride [Moles/Vol] 101 mmol/L 98-107 [facility] Glucose [Mass/Vol] 168 mg/dL 74-106 [facility] Comment on above: Fasting Glucose resu lt greater than or equal to 126 mg/dL suggests DIABETES MELLITUS per A.D.A. criteria. Potassium [Moles/Vol] 3.7 mmol/L 3.5-5.1 [facility] Protein [Mass/Vol] 8.7 g/dL 6.4-8.2 [facility] Sodium [Moles/Vol] 133 mmol/L 136-145 [facility] - Chemistry and C hemistry - challengeOrdered By: Dr. Smiley on 12-09-2022 ALP [Catalytic activity/Vol] 164 U/L 45-117 [facility] ALT [Catalytic activity/Vol] 27 U/L 13-56 [facility] CO2 [Moles/Vol] 25.0 mmol/L 21.0-32.0 [facility] Globulin (S) [Mass/Vol] 5.4 g/dL 2.2-4.2 [facility] Urea nitrogen/Creatinine [Mass ratio] 10.7 mg/mg 10-20 [facility] No Panel InformationOrdered By: Dr. Smiley on 12-09-2022 Estimated GFR (MDRD) Amer 67 mL/min >60 [facility] Comment on above: GFR Calc Estimated GFR (MDRD) Non-Af Amer 55 mL/min >60 [facility] Comment on above: Non- GFR Calc Parathyroid Hormone (Intact) 175.0 pg/mL 18.4-80.1 [facility] Vitamin D 25-Hydroxy 92.6 ng/mL [facility] Comment on above: Vitamin D 25(OH) Sta tus Range Deficiency <20 ng/mL (50nmol/L) Insufficiency 20 - 30 ng/mL (50 - 75 nmol/L) Sufficiency 30 - 100 ng/mL (75 - 250 nmol/L) Toxicity >100 ng/mL (>250 nmol/L) Serum or plasma albumin melanie urement (mass/volume)Ordered By: Dr. Smiley on 12-09-2022 Albumin [Mass/Vol] 3.3 g/dL 3.2-5.0 [facility] Serum or plasma albumin/glob ulin mass ratioOrdered By: Dr. Smiley on 12-09-2022 Albumin/Globulin [Mass ratio] 0.6 {ratio} 0.9-2.4 [facility] Serum or plasma calcium melanie urement (mass/volume)Ordered By: Dr. Smiley on 12-09-2022 Calcium [Mass/Vol] 11.4 mg/dL 8.5-10.1 [facility] Serum or plasma creatinine m easurement (mass/volume)Ordered By: Dr. Smiley on 12-09-2022 Creatinine [Mass/Vol] 1.03 mg/dL 0.55-1.02 [facility] Comment on above: The validity of the calculated GFR & GFRAA in patients over 70 years has not been determined. Clinical correlation is essential. Serum or plasma urea nitroge n measurement (mass/volume)Ordered By: Dr. Smiley on 12-09-2022 Urea nitrogen [Mass/Vol] 11 mg/dL 7-18 [facility] Thin prep Papanicolaou smear with manual screeningOrdered By: Dr. Smiley on 12-09-2022 Thin prep Papanicolaou smear with manual screening 20 U/L 15-37 [facility] Thin prep Papanicolaou smear with manual screening 7 5-15 [facility] Whole blood hemoglobin A1c/t otal hemoglobin ratio (mass fraction)Ordered By: Dr. Smiley on 12-09-2022 HbA1c (Bld) [Mass fraction] 7.4 % 3.8-5.6 [facility] Comment on above: Normal < 5.7 % Predi abetic 5.7 - 6.4 % Diabetic >or= 6.5 % Please note range changes. Absolute lymphocyte counton 07-14-2022 Lymphocytes Auto (Unsp spec) [#/Vol] 2.79 10*3/uL 0.83-4.51 [facility] Work Phone: Basophil percentageon 2021 Basophil percentage 25-50 SEEN /hpf 0-5 [facility] Work Phone: Basophils/100 WBC (Bld) 0.5 % 0-1 [facility] Work Phone: Bilirubin [Mass/Vol] 0.30 mg/dL 0.20-1.00 [facility] Work Phone: [phone] Comment on above: For patients on eltr ombopag therapy, use of Dimension [place] TBIL is not recommended. Chloride [Moles/Vol] 102 mmol/L 98-107 [facility] Work Phone: Eosinophils/100 WBC (Bld) 3.2 % 0-5 [facility] Work Phone: Glucose [Mass/Vol] 143 mg/dL 74-106 [facility] Work Phone: Comment on above: Fasting Glucose resu lt greater than or equal to 126 mg/dL suggests DIABETES MELLITUS per A.D.A. criteria. Neutrophils (Bld) [#/Vol] 4.5 10*3/uL 2.0-7.7 [facility] Work Phone: Neutrophils/100 WBC (Bld) 54.7 % 47-70 [facility] Work Phone: Potassium [Moles/Vol] 4.9 mmol/L 3.5-5.1 [facility] Work Phone: Comment on above: Moderate Hemolysis, Result may be falsely increased. Protein [Mass/Vol] 8.3 g/dL 6.4-8.2 [facility] Work Phone: Sodium [Moles/Vol] 136 mmol/L 136-145 [facility] Work Phone: WBC (Bld) [#/Vol] 8.1 10*3/uL 4.4-11.0 [facility] Work Phone: Bilirubin Test strip Ql (U)o n 07-14-2022 Bilirubin Ql (U) Negative Negative [facility] Work Phone: Blood erythrocytes count (nu mber/volume)on 07-14-2022 RBC (Bld) [#/Vol] 4.15 10*6/uL 4.2-5.4 [facility] Work Phone: Blood hemoglobin measurement (mass/volume)on 07-14-2022 Hemoglobin (Bld) [Mass/Vol] 12.0 g/dL 12.0-15.0 [facility] Work Phone: Blood lymphocytes/100 leukoc yteson 07-14-2022 Lymphocytes/100 WBC (Bld) 34.4 % 19-41 [facility] Work Phone: Blood monocytes/100 leukocyt eson 07-14-2022 Monocytes/100 WBC (Bld) 6.8 % 0-10 [facility] Work Phone: Blood platelet mean volumeon 07-14-2022 Platelet mean volume (Bld) [Entitic vol] 10.2 fL 6.2-12.0 [facility] Work Phone: Determination of erythrocyte mean corpuscular volume (MCV)on 07-14-2022 MCV (RBC) [Entitic vol] 90.8 fL 81-99 [facility] Work Phone: Hematocrit Auto (Bld) [Volum e fraction]on 07-14-2022 Hematocrit (Bld) [Volume fraction] 37.7 % 37-47 [facility] Work Phone: Ketones Test strip Ql (U)on 07-14-2022 Ketones Ql (U) Negative Negative [facility] Work Phone: Laboratory - Chemistry and C hemistry - challengeon 07-14-2022 ALP [Catalytic activity/Vol] 131 U/L 45-117 [facility] Work Phone: ALT [Catalytic activity/Vol] 33 U/L 13-56 [facility] Work Phone: CO2 [Moles/Vol] 31.0 mmol/L 21.0-32.0 [facility] Work Phone: Globulin (S) [Mass/Vol] 5.0 g/dL 2.2-4.2 [facility] Work Phone: Urea nitrogen/Creatinine [Mass ratio] 14.7 mg/mg 10-20 [facility] Work Phone: Laboratory - Hematology and Cell countson 07-14-2022 Erythrocyte distribution width (RBC) [Entitic vol] 49.9 fL 35.1-43.9 [facility] Work Phone: Erythrocyte distribution width (RBC) [Ratio] 15.1 % 11.6-14.6 [facility] Work Phone: Immature granulocytes/100 WBC (Bld) 0.400 % 0.0-0.9 [facility] Work Phone: Comment on above: IG% - Immature Granu locytes (promyelocytes, myelocytes and metamyelocytes) > 1% indicates that a LEFT SHIFT is Present. MCH (RBC) [Entitic mass] 28.9 pg 27.0-32.0 [facility] Work Phone: Nucleated RBC/100 WBC (Bld) [Ratio] 0 % 0-5 [facility] Work Phone: MCHC Auto (RBC) [Mass/Vol]on 07-14-2022 MCHC (RBC) [Mass/Vol] 31.8 g/dL 32-36 [facility] Work Phone: Mucus LM Ql (Urine sed)on Mucus Ql (Urine sed) 0 SEEN /hpf [facility] Work Phone: Nitrite Test strip Ql (U)on 07-14-2022 Nitrite Ql (U) Negative Negative [facility] Work Phone: No Panel Informationon 07-14 Estimated Creatinine Clearance Calc 40.37 ml/min [facility] Work Phone: Estimated GFR (MDRD) Amer 73 mL/min >60 [facility] Work Phone: Comment on above: GFR Calc Estimated GFR (MDRD) Non-Af Amer 60 mL/min >60 [facility] Work Phone: Comment on above: Non- GFR Calc Platelets bldon 07-14-2022 Platelets (Bld) [#/Vol] 267 10*3/uL 150-450 [facility] Work Phone: Protein Test strip Ql (U)on 07-14-2022 Protein Ql (U) 30 mg/dl Negative [facility] Work Phone: Serum or plasma albumin melanie urement (mass/volume)on 07-14-2022 Albumin [Mass/Vol] 3.3 g/dL 3.2-5.0 [facility] Work Phone: Serum or plasma albumin/glob ulin mass ratioon 07-14-2022 Albumin/Globulin [Mass ratio] 0.7 {ratio} 0.9-2.4 [facility] Work Phone: Serum or plasma calcium melanie urement (mass/volume)on 07-14-2022 Calcium [Mass/Vol] 11.4 mg/dL 8.5-10.1 [facility] Work Phone: Serum or plasma creatinine m easurement (mass/volume)on 07-14-2022 Creatinine [Mass/Vol] 0.95 mg/dL 0.55-1.02 [facility] Work Phone: Comment on above: The validity of the calculated GFR & GFRAA in patients over 70 years has not been determined. Clinical correlation is essential. Serum or plasma urea nitroge n measurement (mass/volume)on 07-14-2022 Urea nitrogen [Mass/Vol] 14 mg/dL 7-18 [facility] Work Phone: Squamous epithelial cells de tection in urine sediment by light microscopyon 07-14-2022 Epithelial cells.squamous LM Ql (Urine sed) 0-5 SEEN /hpf 5-10 [facility] Work Phone: Thin prep Papanicolaou smear with manual screeningon 07-14-2022 Thin prep Papanicolaou smear with manual screening 44 U/L 15-37 [facility] Work Phone: Comment on above: Moderate Hemolysis, Result may be falsely increased. Thin prep Papanicolaou smear with manual screening 3 5-15 [facility] Work Phone: Urine blood detectionon 07-01 RBC Ql (U) 25 /ul Negative [facility] Work Phone: RBC Ql (U) 0 SEEN /hpf 0-5 [facility] Work Phone: Urine clarityon 07-14-2022 Clarity (U) Sl. Cloudy Clear [facility] Work Phone: Urine color determinationon 07-14-2022 Color (U) Yellow Yellow [facility] Work Phone: Urine glucose detectionon Glucose Ql (U) 1000 mg/dl Normal [facility] Work Phone: Urine leukocyte esterase det ection by dipstickon 07-14-2022 Leukocyte esterase Test strip Ql (U) 500 /ul Negative [facility] Work Phone: Urine pHon 07-14-2022 pH (U) 6.0 [pH] 5.0 - 8.0 [facility] Work Phone: Urine sediment bacteria coun t by microscopy (number/high power field)on 07-14-2022 Bacteria LM.HPF (Urine sed) [#/Area] 3 /[HPF] None Seen [facility] Work Phone: Urine specific gravity measu rementon 07-14-2022 Specific gravity (U) [Rel density] 1.015 1.002-1.030 [facility] Work Phone: Urobilinogen Auto test strip Ql (U)on 07-14-2022 Urobilinogen Ql (U) Normal mg/dl Normal [facility] Work Phone: CBC W Auto Differential pane l (Bld)on 05-07-2022 Basophils (Bld) [#/Vol] 0.05 10*3/uL Normal <0.11 [facility] Comment on above: Order Comment: Speci men Type: BLOOD SPECIMEN Ordering Facility: [facility] Address: [address] [place] [address] Performed By: #### 5 7021-8 #### [facility] CLIA [id number] [address] [place] [address] [place] Basophils/100 WBC (Bld) 0.7 % Normal [facility] Comment on above: Order Comment: Speci men Type: BLOOD SPECIMEN Ordering Facility: [facility] Address: [address] [place] [address] Performed By: #### 5 7021-8 #### [facility] CLIA [id number] [address] [place] [address] [place] Differential cell count method Nom (Bld) Auto Normal [facility] Comment on above: Order Comment: Speci men Type: BLOOD SPECIMEN Ordering Facility: [facility] Address: [address] [place] [address] Performed By: #### 5 7021-8 #### [facility] CLIA [id number] [address] [place] [address] [place] Eosinophils (Bld) [#/Vol] 0.32 10*3/uL Normal <0.46 [facility] Comment on above: Order Comment: Speci men Type: BLOOD SPECIMEN Ordering Facility: [facility] Address: [address] [place], [place] [address] Performed By: #### 5 7021-8 #### [facility] CLIA [id number] [address] [place] [address] [place] Eosinophils/100 WBC (Bld) 4.7 % Normal [facility] Comment on above: Order Comment: Speci men Type: BLOOD SPECIMEN Ordering Facility: [facility] Address: [address] [place], [place] [address] Performed By: #### 5 7021-8 #### [facility] CLIA [id number] [address] [place] [address] [place] Erythrocyte distribution width (RBC) [Ratio] 14.6 % Normal 11.5-15.0 [facility] Comment on above: Order Comment: Speci men Type: BLOOD SPECIMEN Ordering Facility: [facility] Address: [address] [place] [address] Performed By: #### 5 7021-8 #### [facility] CLIA [id number] [address] [place] [address] [place] Hematocrit (Bld) [Volume fraction] 37.2 % Normal 36.0-46.0 [facility] Comment on above: Order Comment: Speci men Type: BLOOD SPECIMEN Ordering Facility: [facility] Address: [address] [place] [address] Performed By: #### 5 7021-8 #### [id number] [address] [place] [address] [place] Hemoglobin (Bld) [Mass/Vol] 12.0 g/dL Normal 11.5-15.5 [facility] Comment on above: Order Comment: Speci men Type: BLOOD SPECIMEN Ordering Facility: [facility] Address: [address] [place] [address] Performed By: #### 5 7021-8 #### [id number] [address] [place] [address] [place] IMMATURE GRAN % 0.1 % Normal [facility] Comment on above: Order Comment: Speci men Type: BLOOD SPECIMEN Ordering Facility: [facility] Address: [address] [place] [address] Performed By: #### 5 7021-8 #### [facility] [id number] [address] [place] [address] [place] IMMATURE GRAN ABS <0.03 Normal <0.10 [facility] Comment on above: Order Comment: Speci men Type: BLOOD SPECIMEN Ordering Facility: [facility] Address: [address] [place], [place] [address] Performed By: #### 5 7021-8 #### [facility] CLIA [id number] [address] [place] [address] [place] Lymphocytes (Bld) [#/Vol] 2.03 10*3/uL Normal 1.00-4.00 [facility] Comment on above: Order Comment: Speci men Type: BLOOD SPECIMEN Ordering Facility: [facility] Address: [address] [place], [place] [address] Performed By: #### 5 7021-8 #### [facility] CLIA [id number] [address] [place] [address] [place] Lymphocytes/100 WBC (Bld) 29.7 % Normal [facility] Comment on above: Order Comment: Speci men Type: BLOOD SPECIMEN Ordering Facility: [facility] Address: [address] [place], [place] [address] Performed By: #### 5 7021-8 #### [facility] CLIA [id number] [address] [place] [address] [place] MCH (RBC) [Entitic mass] 28.5 pg Normal 26.0-34.0 [facility] Comment on above: Order Comment: Speci men Type: BLOOD SPECIMEN Ordering Facility: [facility] Address: [address] Performed By: #### 5 7021-8 #### [facility] CLIA [id number] [address] [place] [address] [place] MCHC (RBC) [Mass/Vol] 32.3 g/dL Normal 30.5-36.0 [facility] Comment on above: Order Comment: Speci men Type: BLOOD SPECIMEN Ordering Facility: [facility] Address: [address] [place], [place] [address] Performed By: #### 5 7021-8 #### [facility] CLIA [id number] [address] [place] [address] [place] MCV (RBC) [Entitic vol] 88.4 fL Normal 80.0-100.0 [facility] Comment on above: Order Comment: Speci men Type: BLOOD SPECIMEN Ordering Facility: [facility] Address: [address] [place], [place] [address] Performed By: #### 5 7021-8 #### [facility] CLIA [id number] [address] [place] [address] [place] Monocytes (Bld) [#/Vol] 0.47 10*3/uL Normal <0.87 [facility] Comment on above: Order Comment: Speci men Type: BLOOD SPECIMEN Ordering Facility: [facility] Address: [address] [place] [address] Performed By: #### 5 7021-8 #### [facility] CLIA [id number] [address] [place] [address] [place] Monocytes/100 WBC (Bld) 6.9 % Normal [facility] Comment on above: Order Comment: Speci men Type: BLOOD SPECIMEN Ordering Facility: [facility] Address: [address] [place], [place] [address] Performed By: #### 5 7021-8 #### [facility] CLIA [id number] [address] [place] [address] [place] Neutrophils (Bld) [#/Vol] 3.96 10*3/uL Normal 1.45-7.50 [facility] Comment on above: Order Comment: Speci men Type: BLOOD SPECIMEN Ordering Facility: [facility] Address: [address] [place], [place] [address] Performed By: #### 5 7021-8 #### [facility] CLIA [id number] [address] [place] [address] [place] Neutrophils/100 WBC (Bld) 57.9 % Normal [facility] Comment on above: Order Comment: Speci men Type: BLOOD SPECIMEN Ordering Facility: [facility] Address: [address] [place] [address] Performed By: #### 5 7021-8 #### [facility] CLIA [id number] [address] [place] [address] [place] Nucleated RBC (Bld) [#/Vol] 10*3/uL Normal <0.01 [facility] Comment on above: Order Comment: Speci men Type: BLOOD SPECIMEN Ordering Facility: [facility] Address: [address] [place] [address] Performed By: #### 5 7021-8 #### [facility] CLIA [id number] [address] [place] [address] [place] Nucleated RBC/100 WBC (Bld) [Ratio] 0.0 /100 WBC Normal [facility] Comment on above: Order Comment: Speci men Type: BLOOD SPECIMEN Ordering Facility: [facility] Address: [address] [place] [address] Performed By: #### 5 7021-8 #### [facility] CLIA [id number] [address] [place] [address] [place] Platelet mean volume (Bld) [Entitic vol] 10.0 fL Normal 9.0-12.7 [facility] Comment on above: Order Comment: Speci men Type: BLOOD SPECIMEN Ordering Facility: [facility] Address: [address] [place] [address] Performed By: #### 5 7021-8 #### [facility] CLIA [id number] [address] [place] [address] [place] Platelets (Bld) [#/Vol] 246 10*3/uL Normal 150-400 [facility] Comment on above: Order Comment: Speci men Type: BLOOD SPECIMEN Ordering Facility: [facility] Address: [address] [place] [address] [place] [address] Performed By: #### 5 7021-8 #### [facility] CLIA [id number] [address] [place] [address] [place] RBC (Bld) [#/Vol] 4.21 10*6/uL Normal 3.90-5.20 [facility] Comment on above: Order Comment: Speci men Type: BLOOD SPECIMEN Ordering Facility: [facility] Address: [address] [place] [address] Performed By: #### 5 7021-8 #### [facility] CLIA [id number] [address] [place] [address] [place] WBC (Bld) [#/Vol] 6.84 10*3/uL Normal 3.70-11.00 [facility] Comment on above: Order Comment: Speci men Type: BLOOD SPECIMEN Ordering Facility: [facility] Address: [address] [place] [address] Performed By: #### 5 7021-8 #### [facility] CLIA [id number] [address] [place] [address] [place] CNOVSPon 05-07-2022 CNOVS Visit (SP) Office (EVELYN) OLGA DONALDSON ([id number]) 1945 F Date Time Provider Department 05/07/22 [...] an every 2-week basis for 4 cycles ([id number]). Completed a year of trastuzumab 06/16/06. Referred back or anemia. Admitted to [facility] 12/02/2019 for chest pain with ambulation. [...] 1.00 - 4.00 k/uL 2.70 2.30 2.03 [place]% % 7.0 6.6 6.9 Abs [place] <0.87 k/uL 0.49 0.47 0.47 Eosin% % 4.9 3.2 4.7 Abs Eosin <0.46 k/uL 0.34 0.23 0.32 Baso% % 0.7 0.6 0.7 Abs Baso <0.11 k/uL 0.05 0.04 0.05 Immature (more content not included)... Normal [facility] Ferritin SerPl-mCncon 2021 Ferritin [Mass/Vol] 808.0 ng/mL [facility] 14.7-205.1 [facility] Comment on above: Order Comment: Speci men Type: BLOOD SPECIMEN Ordering Facility: [facility] Address: [address] [place] [address] Performed By: #### 5 0190-8, 2275-11 #### [facility] CLIA [id number] [address] [place] [address] [place] [address] [place] Iron and Iron binding capaci ty panelon 05-07-2022 Iron [Mass/Vol] 38 ug/dL Low 41-186 [facility] Comment on above: Order Comment: Speci men Type: BLOOD SPECIMEN Ordering Facility: [facility] Address: [address] [place] [address] Performed By: #### 5 0190-8, 2275- #### [facility] CLIA [id number] [address] [place] [address] [place] [facility] Iron binding capacity [Mass/Vol] 240 ug/dL Normal 232-386 [facility] Comment on above: Order Comment: Speci men Type: BLOOD SPECIMEN Ordering Facility: [facility] Address: [address] [place] [address] Performed By: #### 5 0190-8, 2276-4 #### [facility] CLIA [id number] [address] [place] [address] [place] Iron/TIBC [Molar ratio] 15.8 % Normal 15.0-57.0 [facility] Comment on above: Order Comment: Speci men Type: BLOOD SPECIMEN Ordering Facility: [facility] Address: [address] [place] [address] Performed By: #### 5 0190-8, 2276-4 #### [facility] CLIA [id number] [address] [place] [address] [place] Justine 02-10-2022 JOCELYNE Telephone (EVELYN) OLGA DONALDSON ([id number]) 1945 F Date Time Provider Department 02/10/22 [...] Date Reviewed: 05/07/2021 Reviewed by: 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 APRN.[employer] - Fully Assessed Reason for Visit: Results [...] MIST) 0.65 % nasal spray Use 1 [place] in the nose as needed. - diltiazem [...] by STACIE VARNER LPN on 02/10/22 Normal [facility] CBC W Auto Differential pane l (Bld)on 02-03-2022 Basophils (Bld) [#/Vol] 0.04 10*3/uL Normal <0.11 [facility] Comment on above: Order Comment: Speci men Type: BLOOD SPECIMEN Ordering Facility: [facility] Address: [address] [place] [address] Performed By: #### 5 7021-8 #### [facility] CLIA [id number] [address] [place] [address] [place] Basophils/100 WBC (Bld) 0.6 % Normal [facility] Comment on above: Order Comment: Speci men Type: BLOOD SPECIMEN Ordering Facility: [facility] Address: [address] [place] [address] Performed By: #### 5 7021-8 #### [facility] CLIA [id number] [address] [place] [address] [place] Differential cell count method Nom (Bld) Auto Normal [facility] Comment on above: Order Comment: Speci men Type: BLOOD SPECIMEN Ordering Facility: [facility] Address: [address] [place] [address] Performed By: #### 5 7021-8 #### [facility] CLIA [id number] [address] [place] [address] [place] Eosinophils (Bld) [#/Vol] 0.23 10*3/uL Normal <0.46 [facility] Comment on above: Order Comment: Speci men Type: BLOOD SPECIMEN Ordering Facility: [facility] Address: [address] [place] [address] Performed By: #### 5 7021-8 #### [facility] CLIA [id number] [address] [place] [address] [place] Eosinophils/100 WBC (Bld) 3.2 % Normal [facility] Comment on above: Order Comment: Speci men Type: BLOOD SPECIMEN Ordering Facility: [facility] Address: [address] [place] [address] Performed By: #### 5 7021-8 #### [facility] CLIA [id number] [address] [place] [address] [place] Erythrocyte distribution width (RBC) [Ratio] 14.3 % Normal 11.5-15.0 [facility] Comment on above: Order Comment: Speci men Type: BLOOD SPECIMEN Ordering Facility: [facility] Address: [address] [place] [address] Performed By: #### 5 7021-8 #### [facility] CLIA [id number] [address] [place] [address] [place] Hematocrit (Bld) [Volume fraction] 39.7 % Normal 36.0-46.0 [facility] Comment on above: Order Comment: Speci men Type: BLOOD SPECIMEN Ordering Facility: [facility] Address: [address] [place] [address] Performed By: #### 5 7021-8 #### [facility] CLIA [id number] [address] [place] [address] [place] Hemoglobin (Bld) [Mass/Vol] 12.8 g/dL Normal 11.5-15.5 [facility] Comment on above: Order Comment: Speci men Type: BLOOD SPECIMEN Ordering Facility: [facility] Address: [address] [place] [address] Performed By: #### 5 7021-8 #### [facility] CLIA [id number] [address] [place] [address] [place] IMMATURE GRAN % 0.3 % Normal [facility] [facility] Comment on above: Order Comment: Speci men Type: BLOOD SPECIMEN Ordering Facility: [facility] Address: [address] [place] [address] Performed By: #### 5 7021-8 #### [id number] [address] [place] [address] [place] IMMATURE GRAN ABS <0.03 Normal <0.10 [facility] Comment on above: Order Comment: Speci men Type: BLOOD SPECIMEN Ordering Facility: [facility] Address: [address] [place], [place] [address] Performed By: #### 5 7021-8 #### [facility] CLIA [id number] [address] [place] [address] [place] Lymphocytes (Bld) [#/Vol] 2.30 10*3/uL Normal 1.00-4.00 [facility] Comment on above: Order Comment: Speci men Type: BLOOD SPECIMEN Ordering Facility: [facility] Address: [address] [place], [place] [address] Performed By: #### 5 7021-8 #### [facility] CLIA [id number] [address] [place] [address] [place] Lymphocytes/100 WBC (Bld) 32.1 % Normal [facility] Comment on above: Order Comment: Speci men Type: BLOOD SPECIMEN Ordering Facility: [facility] Address: [address] [place] [address] Performed By: #### 5 7021-8 #### [facility] CLIA [id number] [address] [place] [address] [place] MCH (RBC) [Entitic mass] 28.8 pg Normal 26.0-34.0 [facility] Comment on above: Order Comment: Speci men Type: BLOOD SPECIMEN Ordering Facility: [facility] Address: [address] [place] [address] Performed By: #### 5 7021-8 #### [facility] CLIA [id number] [address] [place] [address] [place] MCHC (RBC) [Mass/Vol] 32.2 g/dL Normal 30.5-36.0 [facility] Comment on above: Order Comment: Speci men Type: BLOOD SPECIMEN Ordering Facility: [facility] Address: [address] [place] [address] Performed By: #### 5 7021-8 #### [facility] CLIA [id number] [address] [place] [address] [place] MCV (RBC) [Entitic vol] 89.4 fL Normal 80.0-100.0 [facility] Comment on above: Order Comment: Speci men Type: BLOOD SPECIMEN Ordering Facility: [facility] Address: [address] [place] [address] Performed By: #### 5 7021-8 #### [facility] CLIA [id number] [address] [place] [address] [place] Monocytes (Bld) [#/Vol] 0.47 10*3/uL Normal <0.87 [facility] Comment on above: Order Comment: Speci men Type: BLOOD SPECIMEN Ordering Facility: [facility] Address: [address] [place] [address] Performed By: #### 5 7021-8 #### [facility] CLIA [id number] [address] [place] [address] [place] Monocytes/100 WBC (Bld) 6.6 % Normal [facility] Comment on above: Order Comment: Speci men Type: BLOOD SPECIMEN Ordering Facility: [facility] Address: [address] [place] [address] Performed By: #### 5 7021-8 #### [facility] CLIA [id number] [address] [place] [address] [place] Neutrophils (Bld) [#/Vol] 4.11 10*3/uL Normal 1.45-7.50 [facility] Comment on above: Order Comment: Speci men Type: BLOOD SPECIMEN Ordering Facility: [facility] Address: [address] [place], [place] [address] Performed By: #### 5 7021-8 #### [facility] CLIA [id number] [address] [place] [address] [place] Neutrophils/100 WBC (Bld) 57.2 % Normal [facility] Comment on above: Order Comment: Speci men Type: BLOOD SPECIMEN Ordering Facility: [facility] Address: [address] [place], [place] [address] Performed By: #### 5 7021-8 #### [facility] CLIA [id number] [address] [place] [address] [place] Nucleated RBC (Bld) [#/Vol] 10*3/uL Normal <0.01 [facility] Comment on above: Order Comment: Speci men Type: BLOOD SPECIMEN Ordering Facility: [facility] Address: [address] [place], [place] [address] Performed By: #### 5 7021-8 #### [facility] CLIA [id number] [address] [place] [address] [place] Nucleated RBC/100 WBC (Bld) [Ratio] 0.0 /100 WBC Normal [facility] Comment on above: Order Comment: Speci men Type: BLOOD SPECIMEN Ordering Facility: [facility] Address: [address] [place], [place] [phone] Performed By: #### 5 7021-8 #### [facility] CLIA [id number] [address] [place] [address] [place] Platelet mean volume (Bld) [Entitic vol] 10.3 fL Normal 9.0-12.7 [facility] Comment on above: Order Comment: Speci men Type: BLOOD SPECIMEN Ordering Facility: [facility] Address: [address] [place], [place] [address] Performed By: #### 5 7021-8 #### [facility] CLIA [id number] [address] [place] [address] [place] Platelets (Bld) [#/Vol] 265 10*3/uL Normal 150-400 [facility] Comment on above: Order Comment: Speci men Type: BLOOD SPECIMEN Ordering Facility: [facility] Address: [address] [place], [place] [id number] Performed By: #### 5 7021-8 #### [facility] CLIA [id number] [address] [place] [address] [place] RBC (Bld) [#/Vol] 4.44 10*6/uL Normal 3.90-5.20 [facility] Comment on above: Order Comment: Speci men Type: BLOOD SPECIMEN Ordering Facility: [facility] Address: [address] [place], [place] [address] Performed By: #### 5 7021-8 #### [facility] CLIA [id number] [address] [place] [address] [place] WBC (Bld) [#/Vol] 7.17 10*3/uL Normal 3.70-11.00 [facility] Comment on above: Order Comment: Speci men Type: BLOOD SPECIMEN Ordering Facility: [facility] Address: [address] [place] [address] Performed By: #### 5 7021-8 #### [facility] CLIA [id number] [address] [place] [address] [place] FERRITIN BLDon 02-03-2022 Ferritin [Mass/Vol] 1132.0 ng/mL High 14.7-205.1 [facility] Comment on above: Order Comment: Speci men Type: BLOOD SPECIMEN Ordering Facility: [facility] Address: [address] [place] [address] Performed By: #### F ERR, IRON #### [facility] CLIA [id number] [address] [place] [address] [place] IRON + TIBCon 02-03-2022 Iron [Mass/Vol] 66 ug/dL Normal 41-186 [facility] Comment on above: Order Comment: Speci men Type: BLOOD SPECIMEN Ordering Facility: [facility] Address: [address] [place], [place] [phone] Performed By: #### F ERR, IRON #### [facility] CLIA [id number] [address] [place] [address] [place] Iron binding capacity [Mass/Vol] 286 ug/dL Normal 232-386 [facility] Comment on above: Order Comment: Speci men Type: BLOOD SPECIMEN Ordering Facility: [facility] Address: [address] [place], [place] [phone] Performed By: #### F ERR, IRON #### [facility] CLIA [id number] [address] [place] [address] [place] Iron/TIBC [Molar ratio] 23 % Normal 15-57 [facility] Comment on above: Order Comment: Speci men Type: BLOOD SPECIMEN Ordering Facility: [facility] Address: [address] [place] [address] Performed By: #### F ERR, IRON #### [facility] CLIA [id number] [address] [place] [address] [place] Bacteria identified Anaer cx Nom (Unsp spec)on 12-02-2021 Anaerobic microbial culture No anaerobic bacteria isolated. [facility] Work Phone: Bacteria identified Cx Nom ( Wound)on 12-02-2021 Wound Culture Negative [facility] Work Phone: Wound Culture Staphylococcus epidermidis [facility] Work Phone: Wound Culture Corynebacterium striatum [facility] Work Phone: Gram stain for investigation of transfusion reactionon 12-02-2021 Microscopic observation Gram stain Nom (Unsp spec) [facility] Work Phone: CBC W Auto Differential pane l (Bld)on 11-04-2021 Basophils (Bld) [#/Vol] 0.05 10*3/uL Normal <0.11 [facility] Comment on above: Order Comment: Speci men Type: BLOOD SPECIMEN Ordering Facility: [facility] Address: [address] [place], [place] [phone] Performed By: #### 5 7021-8 #### [facility] CLIA [id number] [address] [place] [address] [place] Basophils/100 WBC (Bld) 0.7 % Normal [facility] Comment on above: Order Comment: Speci men Type: BLOOD SPECIMEN Ordering Facility: [facility] Address: [address] [place], [place] [phone] Performed By: #### 5 7021-8 #### [facility] CLIA [id number] [address] [place] [address] [place] Differential cell count method Nom (Bld) Auto Normal [facility] Comment on above: Order Comment: Speci men Type: BLOOD SPECIMEN Ordering Facility: [facility] Address: [address] [place] [address] Performed By: #### 5 7021-8 #### [facility] CLIA [id number] [address] [place] [address] [place] Eosinophils (Bld) [#/Vol] 0.34 10*3/uL Normal <0.46 [facility] Comment on above: Order Comment: Speci men Type: BLOOD SPECIMEN Ordering Facility: [facility] Address: [address] [place] [address] Performed By: #### 5 7021-8 #### [facility] CLIA [id number] [address] [place] [address] [place] Eosinophils/100 WBC (Bld) 4.9 % Normal [facility] Comment on above: Order Comment: Speci men Type: BLOOD SPECIMEN Ordering Facility: [facility] Address: [address] [place] [address] Performed By: #### 5 7021-8 #### [facility] CLIA [id number] [address] [place] [address] [place] Erythrocyte distribution width (RBC) [Ratio] 13.3 % Normal 11.5-15.0 [facility] Comment on above: Order Comment: Speci men Type: BLOOD SPECIMEN Ordering Facility: [facility] Address: [address] [place] [address] Performed By: #### 5 7021-8 #### [facility] CLIA [id number] [address] [place] [address] [place] Hematocrit (Bld) [Volume fraction] 40.4 % Normal 36.0-46.0 [facility] Comment on above: Order Comment: Speci men Type: BLOOD SPECIMEN Ordering Facility: [facility] Address: [address] [place] [address] Performed By: #### 5 7021-8 #### [facility] CLIA [id number] [address] [place] [address] [place] Hemoglobin (Bld) [Mass/Vol] 12.9 g/dL Normal 11.5-15.5 [facility] Comment on above: Order Comment: Speci men Type: BLOOD SPECIMEN Ordering Facility: [facility] Address: [address] [place] [address] Performed By: #### 5 7021-8 #### [facility] CLIA [id number] [address] [place] [address] [place] IMMATURE GRAN % 0.1 % Normal [facility] Comment on above: Order Comment: Speci men Type: BLOOD SPECIMEN Ordering Facility: [facility] Address: [address] [place] [address] Performed By: #### 5 7021-8 #### [facility] CLIA [id number] [address] [place] [address] [place] IMMATURE GRAN ABS <0.03 Normal <0.10 [facility] Comment on above: Order Comment: Speci men Type: BLOOD SPECIMEN Ordering Facility: [facility] Address: [address] [place], [place] [id number] Performed By: #### 5 7021-8 #### [facility] CLIA [id number] [address] [place] [address] [place] Lymphocytes (Bld) [#/Vol] 2.70 10*3/uL Normal 1.00-4.00 [facility] Comment on above: Order Comment: Speci men Type: BLOOD SPECIMEN Ordering Facility: [facility] Address: [address] [place], [place] [phone] Performed By: #### 5 7021-8 #### [facility] CLIA [id number] [address] [place] [address] [place] Lymphocytes/100 WBC (Bld) 38.6 % Normal [facility] Comment on above: Order Comment: Speci men Type: BLOOD SPECIMEN Ordering Facility: [facility] Address: [address] [place] [address] Performed By: #### 5 7021-8 #### [facility] CLIA [id number] [address] [place] [address] [place] MCH (RBC) [Entitic mass] 28.9 pg Normal 26.0-34.0 [facility] Comment on above: Order Comment: Speci men Type: BLOOD SPECIMEN Ordering Facility: [facility] Address: [address] [place] [address] Performed By: #### 5 7021-8 #### [facility] CLIA [id number] [address] [place] [address] [place] MCHC (RBC) [Mass/Vol] 31.9 g/dL Normal 30.5-36.0 [facility] Comment on above: Order Comment: Speci men Type: BLOOD SPECIMEN Ordering Facility: [facility] Address: [address] [place] [address] Performed By: #### 5 7021-8 #### [facility] CLIA [id number] [address] [place] [address] [place] MCV (RBC) [Entitic vol] 90.4 fL Normal 80.0-100.0 [facility] Comment on above: Order Comment: Speci men Type: BLOOD SPECIMEN Ordering Facility: [facility] Address: [address] [place] [address] Performed By: #### 5 7021-8 #### [facility] CLIA [id number] [address] [place] [address] [place] Monocytes (Bld) [#/Vol] 0.49 10*3/uL Normal <0.87 [facility] Comment on above: Order Comment: Speci men Type: BLOOD SPECIMEN Ordering Facility: [facility] Address: [address] [place], [place] [id number] Performed By: #### 5 7021-8 #### [facility] CLIA [id number] [address] [place] [address] [place] Monocytes/100 WBC (Bld) 7.0 % Normal [facility] Comment on above: Order Comment: Speci men Type: BLOOD SPECIMEN Ordering Facility: [facility] Address: [address] [place], [place] [address] Performed By: #### 5 7021-8 #### [facility] CLIA [id number] [address] [place] [address] [place] Neutrophils (Bld) [#/Vol] 3.40 10*3/uL Normal 1.45-7.50 [facility] Comment on above: Order Comment: Speci men Type: BLOOD SPECIMEN Ordering Facility: [facility] Address: [address] [place], [place] [address] Performed By: #### 5 7021-8 #### [facility] CLIA [id number] [address] [place] [address] [place] Neutrophils/100 WBC (Bld) 48.7 % Normal [facility] Comment on above: Order Comment: Speci men Type: BLOOD SPECIMEN Ordering Facility: [facility] Address: [address] [place], [place] [address] Performed By: #### 5 7021-8 #### [facility] CLIA [id number] [address] [place] [address] [place] Nucleated RBC (Bld) [#/Vol] 10*3/uL Normal <0.01 [facility] Comment on above: Order Comment: Speci men Type: BLOOD SPECIMEN Ordering Facility: [facility] Address: [address] [place], [place] [address] Performed By: #### 5 7021-8 #### [facility] CLIA [id number] [address] [place] [address] [place] Nucleated RBC/100 WBC (Bld) [Ratio] 0.0 /100 WBC Normal [facility] Comment on above: Order Comment: Speci men Type: BLOOD SPECIMEN Ordering Facility: [facility] Address: [address] [place], [place] [address] Performed By: #### 5 7021-8 #### [facility] CLIA [id number] [address] [place] [address] [place] Platelet mean volume (Bld) [Entitic vol] 10.1 fL Normal 9.0-12.7 [facility] Comment on above: Order Comment: Speci men Type: BLOOD SPECIMEN Ordering Facility: [facility] Address: [address] [place], [place] [address] Performed By: #### 5 7021-8 #### [facility] CLIA [id number] [address] [place] [address] [place] Platelets (Bld) [#/Vol] 246 10*3/uL Normal 150-400 [facility] Comment on above: Order Comment: Speci men Type: BLOOD SPECIMEN Ordering Facility: [facility] Address: [address] [place], [place] [address] Performed By: #### 5 7021-8 #### [facility] CLIA [id number] [address] [place] [address] [place] RBC (Bld) [#/Vol] 4.47 10*6/uL Normal 3.90-5.20 [facility] Comment on above: Order Comment: Speci men Type: BLOOD SPECIMEN Ordering Facility: [facility] Address: [address] [place], [place] [address] Performed By: #### 5 7021-8 #### [facility] CLIA [id number] [address] [place] [address] [place] WBC (Bld) [#/Vol] 6.99 10*3/uL Normal 3.70-11.00 [facility] Comment on above: Order Comment: Speci men Type: BLOOD SPECIMEN Ordering Facility: [facility] Address: [address] [place] [address] Performed By: #### 5 7021-8 #### [facility] CLIA [id number] [address] [place] [address] [place] FERRITIN BLDon 11-04-2021 Ferritin [Mass/Vol] 1428.0 ng/mL High 14.7-205.1 [facility] Comment on above: Order Comment: Speci men Type: BLOOD SPECIMEN Ordering Facility: [facility] Address: [address] [place] [address] Performed By: #### I VICTOR MANUEL, FERR #### [facility] CLIA [id number] [address] [place] [address] [place] IRON + TIBCon 11-04-2021 Iron [Mass/Vol] 60 ug/dL Normal 41-186 [facility] Comment on above: Order Comment: Speci men Type: BLOOD SPECIMEN Ordering Facility: [facility] Address: [address] [place], [place] [phone] Performed By: #### I VICTOR MANUEL, FERR #### [facility] CLIA [id number] [address] [place] [address] [place] Iron binding capacity [Mass/Vol] 242 ug/dL Normal 232-386 [facility] Comment on above: Order Comment: Speci men Type: BLOOD SPECIMEN Ordering Facility: [facility] Address: [address] [place], [place] [id number] Performed By: #### I VICTOR MANUEL, FERR #### [facility] CLIA [id number] [address] [place] Iron/TIBC [Molar ratio] 25 % Normal 15-57 C [facility] Comment on above: Order Comment: Flip headley Type: BLOOD SPECIMEN Ordering Facility: [facility] Address: [address] [place] [address] Performed By: #### I EVELIA RUSH #### [facility] CLIA [id number] [address] [place] [address] [place] CNPNon 09-29-2021 CNPN Telephone (HEMAWS) OLGA DONALDSON ([id number]) 1945 F Date Time Provider Department 09/29/21 [...] Date Reviewed: 05/07/2021 Reviewed by: 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 APRN.[employer] - Fully Assessed Reason for Visit: Results [95] Follow Up [171] Primary Visit Diagnosis:Anemia, unspecified type [D64.9] Order(s):CBC + DIFF [SQCBCDIF] Order #: [id number] FUTURE COMP METABOLIC PANEL [SQCMP] Order #: [id number] FUTURE PROTEIN ELECTROPHORESIS SERUM W/INTERP [SQSEPG] Order #: [id number] FUTURE MONOCLONAL PROTEIN, SERUM (BLOOD) [SQSERMPA] Order #: [id number] FUTURE Prescriptions as of 04/12/2022 - ascorbic [...] MIST) 0.65 % nasal spray Use 1 [place] in the nose as needed. - diltiazem [...] Specified Conge (more content not included)... Normal [facility] Justine 05-09-2021 [place] Telephone (HEMAWS) OLGA DONALDSON ([id number]) 1945 F Date Time Provider Department 05/09/21 [...] MIST) 0.65 % nasal spray Use 1 [place] in the nose as needed. - diltiazem [...] by STACIE VARNER LPN on 05/09/21 Normal [facility] - Specimen inform ationon 03-27-2021 Specimen source Nom (Unsp spec) Stool [facility] No Panel Informationon 03-27 Occult Blood Diagnostic Positive [facility] FERRITIN BLDon 03-22-2021 Ferritin [Mass/Vol] 1064.0 ng/mL High 14.7 - 2 05.1 ng/mL [facility] CULTURE FUNGUSon 02-08-2018 CULTURE FUNGUS 1 Organism Nithya albicans Many Normal [facility] Comment on above: Performed By: #### C /FUN, S/FUN ####[facility] [employer] [id number] [place] [address] STAIN FUNGUSon 01-19-2018 STAIN FUNGUS STAIN FUNGUS --> Status: F 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 Direct exam by Calcofluor stain. Direct exam by Calcofluor stain. Normal [facility] Comment on above: Performed By: #### C /FUN, S/FUN ####[facility] [employer] [id number] [place] [address] Office Visit: Consult- Romero mina 01-13-2017 Adolescent depression screening assessment Adolescent depression screening assessment Invalid Interpretation Code [facility] Work Phone: [phone] Adult depression screening assessment Adolescent depression screening assessment [facility] Work Phone: [phone] Documentation of current medications (procedure) Done Invalid Interpretation Code [facility] Surgery Work Phone: [phone] Fall risk assessment Fall risk assessment [facility] Work Phone: [phone] Tobacco smoking status NHIS Never [facility] Work Phone: [phone] Tobacco smoking status NHIS Former smoker [facility] Work Phone: [phone] [facility] Former smoker Invalid Interpretation Code [facility] Work Phone: [phone] 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 Left ventricular Ejection fraction 70 % [facility] Work Phone: [phone] Office Visiton 08-29-2015 cardiac risk group [facility] Work Phone: [phone] General cardiovascular disease 10Y risk [#] [email or web address] Not enough information [facility] Work Phone: [phone] Replaced Document: Mid[facility] E CG Observationson 08-29-2015 EKG QRS axis 29 deg [facility] Work Phone: [phone] electrocardiogram interpretation Sinus Tachycardia -With rate variation cv = 10.WITHIN NORMAL LIMITS Invalid Interpretation Code [facility] Work Phone: [phone] GE use only - for [employer] import when terms are not otherwise specified 411 ms Invalid Interpretation Code [facility] Work Phone: [phone] Interpretation Sinus Tachycardia -With rate variation cv = 10.WITHIN NORMAL LIMITS [facility] Work Phone: [phone] P Midway 41 deg [facility] Work Phone: [phone] P wave axis, electrocardiogram 41 deg Invalid Interpretation Code [facility] Work Phone: [phone] [place] Interval 134 ms [facility] Work Phone: [phone] [place] interval, electrocardiogram 134 ms Invalid Interpretation Code [facility] Work Phone: [phone] Pulse (Heart Rate) 109 /min Invalid Interpretation Code [facility] Work Phone: [phone] QRS axis, electrocardiogram 29 deg Invalid Interpretation Code [facility] Work Phone: [phone] QRS Duration 80 ms [facility] Work Phone: [phone] QRS duration, electrocardiogram 80 ms Invalid Interpretation Code [facility] Work Phone: [phone] QT Interval new path ms [facility] Work Phone: [phone] QT interval, electrocardiogram new path ms Invalid Interpretation Code [facility] Work Phone: [phone] QTc Carney 411 ms [facility] Work Phone: [phone] T Midway 37 deg [facility] Work Phone: [phone] T wave axis, electrocardiogram 37 deg Invalid Interpretation Code [facility] Work Phone: [phone] Bacteria identified Anaer cx Nom (Unsp spec) Anaerobic microbial culture No anaerobic bacteria isolated. [facility] Work Phone: Bacteria identified Cx Nom ( Wound) Wound Culture Negative [facility] Work Phone: Wound Culture Staphylococcus epidermidis [facility] Work Phone: Wound Culture Corynebacterium striatum [facility] Work Phone: Culture, urine Bacteria identified Cx Nom (U) Klebsiella pneumoniae sp pneum [facility] Work Phone: [phone] Gram stain for investigation of transfusion reaction Microscopic observation Gram stain Nom (Unsp spec) [facility] Work Phone: Vital Signs Date Time Vital Sign Value Performing Clinician Facility 04-02-2025 04:27-0400 Body temperature 98.1 [degF] Dr. Ramone Smiley MD Work Phone: [facility] 04-02-2025 04:27-0400 Diastolic blood pressure 53 mm[Hg] Dr. Ramone Smiley MD Work Phone: [facility] 04-02-2025 04:27-0400 Heart rate 90 /min Dr. Ramone Smiley MD Work Phone: [facility] 04-02-2025 04:27-0400 Respiratory rate 21 /min Dr. Ramone Smiley MD Work Phone: [facility] 04-02-2025 04:27-0400 SaO2% (BldA) [Mass fraction] 100 % Dr. Ramone Smiley MD Work Phone: [facility] 04-02-2025 04:27-0400 Systolic blood pressure 139 mm[Hg] Dr. Ramone Smiley MD Work Phone: [facility] 04-02-2025 04:17-0400 Inhaled oxygen concentration 35 % Dr. Ramone Smiley MD Work Phone: [facility] 04-02-2025 02:55-0400 Inhaled oxygen flow rate 4 L/min Dr. Ramone Smiley MD Work Phone: 0(453)559-018630 [place] [address] 04-02-2025 02:50-0400 Body height 160.[address] Ramone Smiley MD Work Phone: 9(185)927-254038 [place] [address] 04-02-2025 02:50-0400 Body mass index (BMI) [Ratio] 32.2 kg/m2 Dr. Ramone Smiley MD Work Phone: 4(958)024-115038 [place] [address] 04-02-2025 02:50-0400 Body weight 82.[address] Ramone Smiley MD Work Phone: 0(730)653-962838 [place] [address] 03-25-2025 13:49-0400 Body temperature 98.9 [degF] Dr. Ramone Smiley MD Work Phone: 7(473)933-398838 [place] [address] 03-25-2025 13:49-0400 Diastolic blood pressure 60 mm[Hg] Dr. Ramone Smiley MD Work Phone: 3(194)390-897638 [place] [address] 03-25-2025 13:49-0400 Heart rate 102 /min Dr. Ramone Smiley MD Work Phone: 7(223)740-363438 [place] [address] 03-25-2025 13:49-0400 Inhaled oxygen flow rate 2 L/min Dr. Ramone Smiley MD Work Phone: 7(775)865-892138 [place] [address] 03-25-2025 13:49-0400 Respiratory rate 16 /min Dr. Ramone Smiley MD Work Phone: 8(436)116-697038 [place] [address] 03-25-2025 13:49-0400 SaO2% (BldA) [Mass fraction] 100 % Dr. Ramone Smiley MD Work Phone: 9(439)868-742938 [place] [address] 03-25-2025 13:49-0400 Systolic blood pressure 136 mm[Hg] Dr. Ramone Smiley MD Work Phone: 1(967)564-114438 [place] [address] 03-25-2025 03:15-0400 Body mass index (BMI) [Ratio] 30.4 kg/m2 Dr. Ramone Smiley MD Work Phone: 9(487)791-540238 [place] [address] 03-25-2025 03:15-0400 Body weight 77.[address] Ramone Smiley MD Work Phone: 3(530)559-629938 [place] [address] 03-24-2025 14:00-0400 Body height 160.[address] Ramone Smiley MD Work Phone: 4(908)086-174238 [place] [address] 03-21-2025 22:28-0400 Body temperature 98.4 [degF] Dr. Ramone Smiley MD Work Phone: 5(315)193-095738 [place] [address] 03-21-2025 22:28-0400 Diastolic blood pressure 81 mm[Hg] Dr. Ramone Smiley MD Work Phone: 7(511)895-778738 [place] [address] 03-21-2025 22:28-0400 Heart rate 86 /min Dr. Ramone Smiley MD Work Phone: 8(112)977-203438 [place] [address] 03-21-2025 22:28-0400 Respiratory rate 19 /min Dr. Ramone Smiley MD Work Phone: 3(139)418-265738 [place] [address] 03-21-2025 22:28-0400 SaO2% (BldA) [Mass fraction] 94 % Dr. Ramone Smiley MD Work Phone: 9(456)149-691538 [place] [address] 03-21-2025 22:28-0400 Systolic blood pressure 136 mm[Hg] Dr. Ramone Smiley MD Work Phone: 6(122)993-805238 [place] [address] 03-21-2025 21:00-0400 Inhaled oxygen flow rate 2 L/min Dr. Ramone Smiley MD Work Phone: 3(891)260-704138 [place] [address] 03-21-2025 13:31-0400 Body mass index (BMI) [Ratio] 27.6 kg/m2 Dr. Ramone Smiley MD Work Phone: 8(217)187-712038 [place] [address] 03-21-2025 13:31-0400 Body weight 70.[address] Ramone Smiley MD Work Phone: 7(663)536-181538 [place] [address] 03-21-2025 13:23-0400 Body height 160.[address] Ramone Smiley MD Work Phone: 0(813)122-088538 [place] [address] 03-04-2025 23:10-0400 Body temperature 98 [degF] Dr. Ramone Smiley MD Work Phone: [facility] 03-04-2025 23:10-0400 Diastolic blood pressure 80 mm[Hg] Dr. Ramone Smiley MD Work Phone: [facility] 03-04-2025 23:10-0400 Heart rate 81 /min Dr. Ramone Smiley MD Work Phone: [facility] 03-04-2025 23:10-0400 Respiratory rate 16 /min Dr. Ramone Smiley MD Work Phone: [facility] 03-04-2025 23:10-0400 SaO2% (BldA) [Mass fraction] 95 % Dr. Ramone Smiley MD Work Phone: 0(187)379-004133 [address] 03-04-2025 23:10-0400 Systolic blood pressure 135 mm[Hg] Dr. Ramone Smiley MD Work Phone: 2(281)543-436533 [address] 03-04-2025 19:04-0400 Inhaled oxygen flow rate 2 L/min Dr. Ramone Smiley MD Work Phone: [facility] 03-04-2025 18:54-0400 Body mass index (BMI) [Ratio] 28 kg/m2 Dr. Ramone Smiley MD Work Phone: [facility] 03-04-2025 18:54-0400 Body weight 71.[address] Ramone Smiley MD Work Phone: [facility] 03-04-2025 18:37-0400 Body height 160.[address] Ramone Smiley MD Work Phone: [facility] 02-19-2025 00:38-0400 Body temperature 98.7 [degF] Dr. Ramone Smiley MD Work Phone: [facility] 02-19-2025 00:38-0400 Diastolic blood pressure 86 mm[Hg] Dr. Ramone Smiley MD Work Phone: [facility] 02-19-2025 00:38-0400 Heart rate 98 /min Dr. Ramone Smiley MD Work Phone: [facility] 02-19-2025 00:38-0400 Respiratory rate 22 /min Dr. Ramone Smiley MD Work Phone: 5(565)349-217530 [place] [address] 02-19-2025 00:38-0400 SaO2% (BldA) [Mass fraction] 98 % Dr. Ramone Smiley MD Work Phone: 1(741)329-586738 [place] [address] 02-19-2025 00:38-0400 Systolic blood pressure 122 mm[Hg] Dr. Ramone Smiley MD Work Phone: 1(210)431-874030 [place] [address] 02-19-2025 00:23-0400 Inhaled oxygen flow rate 2 L/min Dr. Ramone Smiley MD Work Phone: 4(315)328-068738 [place] [address] 02-18-2025 20:51-0400 Body height 160.[address] Ramone Smiley MD Work Phone: 4(577)240-691038 [place] [address] 02-18-2025 20:51-0400 Body mass index (BMI) [Ratio] 30.4 kg/m2 Dr. Ramone Smiley MD Work Phone: 5(751)540-151338 [place] [address] 02-18-2025 20:51-0400 Body weight 77.[address] Ramone Smiley MD Work Phone: 3(092)838-078838 [place] [address] 02-17-2025 18:40-0400 Heart rate 78 /min Dr. Ramone Smiley MD Work Phone: 8(496)082-500338 [place] [address] 02-17-2025 18:40-0400 Inhaled oxygen flow rate 2 L/min Dr. Ramone Smiley MD Work Phone: 3(175)872-534730 [place] [address] 02-17-2025 18:40-0400 Respiratory rate 18 /min Dr. Ramone Smiley MD Work Phone: 9(714)877-186538 [place] [address] 02-17-2025 18:40-0400 SaO2% (BldA) [Mass fraction] 94 % Dr. Ramone Smiley MD Work Phone: 5(638)963-817538 [place] [address] 02-17-2025 18:08-0400 Body temperature 98.9 [degF] Dr. Ramone Smiley MD Work Phone: [facility] 02-17-2025 18:08-0400 Diastolic blood pressure 54 mm[Hg] Dr. Ramone Smiley MD Work Phone: 5(981)022-853930 [place] [address] 02-17-2025 18:08-0400 Systolic blood pressure 137 mm[Hg] Dr. Ramone Smiley MD Work Phone: 5(424)621-344538 [place] [address] 02-17-2025 04:49-0400 Body mass index (BMI) [Ratio] 29.4 kg/m2 Dr. Ramone Smiley MD Work Phone: 7(241)828-697938 [place] [address] 02-17-2025 04:49-0400 Body weight 75.[address] Ramone Smiley MD Work Phone: 6(439)704-869838 [place] [address] 02-15-2025 15:20-0400 Body height 160.[address] Ramone Smiley MD Work Phone: 2(535)164-303338 [place] [address] 02-15-2025 13:54-0400 Body temperature 99.6 [degF] Dr. Ramone Smiley MD Work Phone: 1(168)110-428638 [place] [address] 02-15-2025 13:54-0400 Diastolic blood pressure 53 mm[Hg] Dr. Ramone Smiley MD Work Phone: 9(055)312-336738 [place] [address] 02-15-2025 13:54-0400 Heart rate 98 /min Dr. Ramone Smiley MD Work Phone: 3(560)682-281738 [place] [address] 02-15-2025 13:54-0400 Inhaled oxygen flow rate 3 L/min Dr. Ramone Smiley MD Work Phone: 3(685)391-361630 [place] [address] 02-15-2025 13:54-0400 Respiratory rate 22 /min Dr. Ramone Smiley MD Work Phone: 4(848)071-131538 [place] [address] 02-15-2025 13:54-0400 SaO2% (BldA) [Mass fraction] 98 % Dr. Ramone Smiley MD Work Phone: 2(699)687-555738 [place] [address] 02-15-2025 13:54-0400 Systolic blood pressure 110 mm[Hg] Dr. Ramone Smiley MD Work Phone: 4(333)455-362930 [place] [address] 02-15-2025 08:36-0400 Body height 160.[address] Ramone Smiley MD Work Phone: 2(667)920-221438 [place] [address] 02-15-2025 08:36-0400 Body mass index (BMI) [Ratio] 30.4 kg/m2 Dr. Ramone Smiley MD Work Phone: 1(227)268-246038 [place] [address] 02-15-2025 08:36-0400 Body weight 78.[address] Ramone Smiley MD Work Phone: 8(112)920-348538 [place] [address] 02-13-2025 16:00-0400 Inhaled oxygen flow rate 2 L/min Dr. Ramone Smiley MD Work Phone: 3(533)802-240938 [place] [address] 02-13-2025 14:04-0400 Body temperature 98.4 [degF] Dr. Ramone Smiley MD Work Phone: 9(336)223-131738 [place] [address] 02-13-2025 14:04-0400 Heart rate 94 /min Dr. Ramone Smiley MD Work Phone: 6(831)758-776438 [place] [address] 02-13-2025 14:04-0400 Respiratory rate 20 /min Dr. Ramone Smiley MD Work Phone: 2(513)422-504538 [place] [address] 02-13-2025 14:04-0400 SaO2% (BldA) [Mass fraction] 94 % Dr. Ramone Smiley MD Work Phone: 5(787)089-933438 [place] [address] 02-13-2025 08:41-0400 Diastolic blood pressure 51 mm[Hg] Dr. Ramnoe Smiley MD Work Phone: 3(828)944-641438 [place] [address] 02-13-2025 08:41-0400 Systolic blood pressure 132 mm[Hg] Dr. Ramone Smiley MD Work Phone: 1(221)926-252438 [place] [address] 02-10-2025 13:27-0400 Body height 160.[address] Ramone Smiley MD Work Phone: 0(257)698-230638 [place] [address] 02-10-2025 13:27-0400 Body weight 76.[address] Ramone Smiley MD Work Phone: 0(227)479-189338 [place] [address] 02-09-2025 16:43-0400 Body mass index (BMI) [Ratio] 29.9 kg/m2 Dr. Ramone Smiley MD Work Phone: 1(300)916-430938 [place] [address] 02-09-2025 15:12-0400 Inhaled oxygen flow rate 2 L/min Dr. Ramone Smiley MD Work Phone: 0(615)128-978938 [place] [address] 02-09-2025 15:12-0400 SaO2% (BldA) [Mass fraction] 91 % Dr. Ramone Smiley MD Work Phone: 7(039)261-267438 [place] [address] 02-09-2025 15:08-0400 Body temperature 99 [degF] Dr. Ramone Smiley MD Work Phone: 2(346)136-490038 [place] [address] 02-09-2025 15:08-0400 Diastolic blood pressure 46 mm[Hg] Dr. Ramone Smiley MD Work Phone: 1(674)521-157338 [place] [address] 02-09-2025 15:08-0400 Heart rate 94 /min Dr. Ramone Smiley MD Work Phone: 8(569)215-715538 [place] [address] 02-09-2025 15:08-0400 Respiratory rate 25 /min Dr. Ramone Smiley MD Work Phone: 8(212)687-437238 [place] [address] 02-09-2025 15:08-0400 Systolic blood pressure 136 mm[Hg] Dr. Ramone Smiley MD Work Phone: 3(122)332-340638 [place] [address] 02-09-2025 11:52-0400 Body height 160.[address] Ramone Smiley MD Work Phone: 2(078)217-535638 [place] [address] 02-09-2025 11:52-0400 Body mass index (BMI) [Ratio] 30.1 kg/m2 Dr. Ramone Smiley MD Work Phone: 6(135)257-803538 [place] [address] 02-09-2025 11:52-0400 Body weight 77.[address] Ramone Smiley MD Work Phone: 6(532)337-250638 [place] [address] 02-06-2025 15:38-0400 Body temperature 97.5 [degF] Dr. Ramone Smiley MD Work Phone: 3(434)205-914838 [place] [address] 02-06-2025 15:38-0400 Diastolic blood pressure 81 mm[Hg] Dr. Ramone Smiley MD Work Phone: 0(477)457-808830 [place] [address] 02-06-2025 15:38-0400 Heart rate 74 /min Dr. Ramone Smiley MD Work Phone: 6(355)514-860838 [place] [address] 02-06-2025 15:38-0400 Respiratory rate 18 /min Dr. Ramone Smiley MD Work Phone: 9(697)285-736638 [place] [address] 02-06-2025 15:38-0400 SaO2% (BldA) [Mass fraction] 93 % Dr. Ramone Smiley MD Work Phone: 9(066)049-204638 [place] [address] 02-06-2025 15:38-0400 Systolic blood pressure 117 mm[Hg] Dr. Ramone Smiley MD Work Phone: 4(941)174-015938 [place] [address] 02-06-2025 07:36-0400 Inhaled oxygen flow rate 2 L/min Dr. Ramone Smiley MD Work Phone: 7(664)737-849338 [place] [address] 02-04-2025 12:34-0400 Body height 160.[address] Ramone Smiley MD Work Phone: 8(101)439-441738 [place] [address] 02-04-2025 12:34-0400 Body mass index (BMI) [Ratio] 27.8 kg/m2 Dr. Ramone Smiley MD Work Phone: 9(552)611-435638 [place] [address] 02-04-2025 12:34-0400 Body weight 71.[address] Ramone Smiley MD Work Phone: 3(818)117-414538 [place] [address] 02-04-2025 11:06-0400 Body temperature 98.6 [degF] Dr. Ramone Smiley MD Work Phone: 0(421)374-271738 [place] [address] 02-04-2025 11:06-0400 Diastolic blood pressure 46 mm[Hg] Dr. Ramone Smiley MD Work Phone: 2(665)604-510138 [place] [address] 02-04-2025 11:06-0400 Heart rate 88 /min Dr. Ramone Smiley MD Work Phone: 7(121)411-347030 [place] [address] 02-04-2025 11:06-0400 Respiratory rate 30 /min Dr. Ramone Smiley MD Work Phone: 8(925)110-468430 [place] [address] 02-04-2025 11:06-0400 SaO2% (BldA) [Mass fraction] 99 % Dr. Ramone Smiley MD Work Phone: 4(297)976-802938 [place] [address] 02-04-2025 11:06-0400 Systolic blood pressure 111 mm[Hg] Dr. Ramone Smiley MD Work Phone: 3(662)333-480138 [place] [address] 02-04-2025 11:00-0400 Inhaled oxygen flow rate 3 L/min Dr. Ramone Smiley MD Work Phone: 3(192)459-140738 [place] [address] 02-04-2025 06:20-0400 Body height 160.[address] Ramone Smiley MD Work Phone: 0(370)161-319638 [place] [address] 02-04-2025 06:20-0400 Body mass index (BMI) [Ratio] 29.9 kg/m2 Dr. Ramone Smiley MD Work Phone: 3(010)268-863338 [place] [address] 02-04-2025 06:20-0400 Body weight 76.[address] Ramone Smiley MD Work Phone: 0(638)664-756338 [place] [address] 01-31-2025 06:28-0400 Body mass index (BMI) [Ratio] 27.4 kg/m2 Dr. Ramone Smiley MD Work Phone: 4(441)433-764238 [place] [address] 01-31-2025 06:28-0400 Body weight 70.[address] Ramone Smiley MD Work Phone: 6(999)075-183238 [place] [address] 01-31-2025 06:28-0400 Diastolic blood pressure 59 mm[Hg] Dr. Ramone Smiley MD Work Phone: 9(095)382-213438 [place] [address] 01-31-2025 06:28-0400 Heart rate 95 /min Dr. Ramone Smiley MD Work Phone: 0(978)826-626738 [place] [address] 01-31-2025 06:28-0400 Respiratory rate 18 /min Dr. Ramone Smiley MD Work Phone: 8(135)285-874238 [place] [address] 01-31-2025 06:28-0400 SaO2% (BldA) [Mass fraction] 95 % Dr. Ramone Smiley MD Work Phone: 2(591)550-975930 [place] [address] 01-31-2025 06:28-0400 Systolic blood pressure 107 mm[Hg] Dr. Ramone Smiley MD Work Phone: 4(919)223-325438 [place] [address] 01-26-2025 05:13-0400 Body temperature 98.3 [degF] Dr. Ramone Smiley MD Work Phone: 0(455)969-624238 [place] [address] 01-26-2025 05:13-0400 Diastolic blood pressure 72 mm[Hg] Dr. Ramone Smiley MD Work Phone: 7(649)713-109738 [place] [address] 01-26-2025 05:13-0400 Heart rate 83 /min Dr. Ramone Smiley MD Work Phone: 0(801)263-552338 [place] [address] 01-26-2025 05:13-0400 Respiratory rate 18 /min Dr. Ramone Smiley MD Work Phone: 5(964)635-411438 [place] [address] 01-26-2025 05:13-0400 SaO2% (BldA) [Mass fraction] 97 % Dr. Ramone Smiley MD Work Phone: 6(514)616-849838 [place] [address] 01-26-2025 05:13-0400 Systolic blood pressure 116 mm[Hg] Dr. Ramone Smiley MD Work Phone: 8(910)370-839038 [place] [address] 01-26-2025 03:02-0400 Body height 160.[address] Ramone Smiley MD Work Phone: 9(228)314-806338 [place] [address] 01-26-2025 03:02-0400 Body mass index (BMI) [Ratio] 31.4 kg/m2 Dr. Ramone Smiley MD Work Phone: 1(816)329-327938 [place] [address] 01-26-2025 03:02-0400 Body weight 80.[address] Ramone Smiley MD Work Phone: 3(953)696-777038 [place] [address] 01-24-2025 13:57-0400 Body temperature 97.4 [degF] Dr. Ramone Smiley MD Work Phone: 8(507)557-117038 [place] [address] 01-24-2025 13:57-0400 Diastolic blood pressure 68 mm[Hg] Dr. Ramone Smiley MD Work Phone: 5(556)223-381430 [place] [address] 01-24-2025 13:57-0400 Heart rate 87 /min Dr. Ramone Smiley MD Work Phone: 1(989)739-894938 [place] [address] 01-24-2025 13:57-0400 Respiratory rate 16 /min Dr. Ramone Smiley MD Work Phone: 8(301)488-591338 [place] [address] 01-24-2025 13:57-0400 SaO2% (BldA) [Mass fraction] 97 % Dr. Ramone Smiley MD Work Phone: 8(260)557-221138 [place] [address] 01-24-2025 13:57-0400 Systolic blood pressure 111 mm[Hg] Dr. Ramone Smiley MD Work Phone: 0(207)403-899338 [place] [address] 01-24-2025 05:23-0400 Body mass index (BMI) [Ratio] 30.7 kg/m2 Dr. Ramone Smiley MD Work Phone: 5(748)342-792038 [place] [address] 01-24-2025 05:23-0400 Body weight 78.[address] Ramone Smiley MD Work Phone: 8(842)331-199638 [place] [address] 01-22-2025 14:00-0400 Inhaled oxygen concentration 24 % Dr. Ramone Smiley MD Work Phone: 7(919)710-790438 [place] [address] 01-22-2025 11:00-0400 Inhaled oxygen flow rate 2 L/min Dr. Ramone Smiley MD Work Phone: 7(040)996-351338 [place] [address] 01-20-2025 10:06-0400 Body height 160.[address] Ramone Smiley MD Work Phone: 5(437)185-268138 [place] [address] 01-15-2025 18:58-0400 Body temperature 97.9 [degF] Dr. Ramone Smiley MD Work Phone: 3(005)880-515938 [place] [address] 01-15-2025 18:58-0400 Diastolic blood pressure 70 mm[Hg] Dr. Ramone Smiley MD Work Phone: 6(381)681-691238 [place] [address] 01-15-2025 18:58-0400 Heart rate 69 /min Dr. Ramone Smiley MD Work Phone: [facility] 01-15-2025 18:58-0400 Respiratory rate 22 /min Dr. Ramone Smiley MD Work Phone: [facility] 01-15-2025 18:58-0400 SaO2% (BldA) [Mass fraction] 98 % Dr. Ramone Smiley MD Work Phone: 9(063)028-774530 [place] [address] 01-15-2025 18:58-0400 Systolic blood pressure 130 mm[Hg] Dr. Ramone Smiley MD Work Phone: 8(417)795-252630 [place] [address] 01-15-2025 14:14-0400 Body height 160.[address] Ramone Smiley MD Work Phone: 6(916)895-324338 [place] [address] 01-15-2025 14:14-0400 Body mass index (BMI) [Ratio] 32.3 kg/m2 Dr. Ramone Smiley MD Work Phone: 2(776)291-205430 [place] [address] 01-15-2025 14:14-0400 Body weight 82.[address] Ramone Smiley MD Work Phone: 0(794)329-717333 [address] 01-07-2025 17:34-0400 Body temperature 97.6 [degF] Dr. Ramone Smiley MD Work Phone: 4(092)513-974033 [address] 01-07-2025 17:34-0400 Diastolic blood pressure 78 mm[Hg] Dr. Ramone Smiley MD Work Phone: 6(522)632-087830 [place] [address] 01-07-2025 17:34-0400 Heart rate 82 /min Dr. Ramone Smiley MD Work Phone: [facility] 01-07-2025 17:34-0400 Respiratory rate 19 /min Dr. Ramone Smiley MD Work Phone: [facility] 01-07-2025 17:34-0400 SaO2% (BldA) [Mass fraction] 97 % Dr. Ramone Smiley MD Work Phone: [facility] 01-07-2025 17:34-0400 Systolic blood pressure 147 mm[Hg] Dr. Ramone Smiley MD Work Phone: [facility] 01-07-2025 14:56-0400 Body height 160.[address] Ramone Smiley MD Work Phone: [facility] 01-07-2025 14:56-0400 Body mass index (BMI) [Ratio] 31.5 kg/m2 Dr. Ramone Smiley MD Work Phone: [facility] 01-07-2025 14:56-0400 Body weight 80.[address] Ramone Smiley MD Work Phone: [facility] 12-30-2023 14:14-0400 Body temperature 98.9 [degF] Dr. Ramone Smiley Work Phone: [facility] 12-30-2023 14:14-0400 Diastolic blood pressure 60 mm[Hg] Dr. Ramone Smiley Work Phone: [phone] 12-30-2023 14:14-0400 Heart rate 80 /min Dr. Ramone Smiley Work Phone: [facility] 12-30-2023 14:14-0400 Respiratory rate 18 /min Dr. Ramone Smiley Work Phone: [facility] 12-30-2023 14:14-0400 SaO2% (BldA) [Mass fraction] 95 % Dr. Ramone Smiley Work Phone: [facility] 12-30-2023 14:14-0400 Systolic blood pressure 131 mm[Hg] Dr. Ramone Smiley Work Phone: [facility] 12-29-2023 07:09-0400 Inhaled oxygen flow rate 2 L/min Dr. Ramone Smiley Work Phone: [facility] 12-28-2023 11:27-0400 Body height 160.[address] Ramone Smiley Work Phone: [facility] 12-28-2023 11:27-0400 Body mass index (BMI) [Ratio] 27.8 kg/m2 Dr. Ramone Smiley Work Phone: [facility] 12-28-2023 11:27-0400 Body weight 71.[address] Ramone Smiley Work Phone: [facility] 12-27-2023 23:42-0400 Body temperature 97.5 [degF] [facility] 12-27-2023 23:42-0400 Diastolic blood pressure 59 mm[Hg] [facility] 12-27-2023 23:42-0400 Heart rate 77 /min [facility] 12-27-2023 23:42-0400 Respiratory rate 20 /min [facility] 12-27-2023 23:42-0400 SaO2% (BldA) [Mass fraction] 97 % [facility] 12-27-2023 23:42-0400 Systolic blood pressure 159 mm[Hg] [facility] 12-27-2023 22:06-0400 Body height 160.02 cm [facility] 12-27-2023 22:06-0400 Body mass index (BMI) [Ratio] 29.5 kg/m2 [facility] 12-27-2023 22:06-0400 Body weight 75.6 kg [facility] 08-17-2023 13:26-0500 Body temperature 97.1 [degF] Dr. Ramone Smiley Work Phone: [facility] 08-17-2023 13:26-0500 Diastolic blood pressure 65 mm[Hg] Dr. Ramone Smiley Work Phone: [facility] 08-17-2023 13:26-0500 Heart rate 84 /min Dr. aRmone Smiley Work Phone: [facility] 08-17-2023 13:26-0500 Respiratory rate 18 /min Dr. Ramone Smiley Work Phone: [facility] 08-17-2023 13:26-0500 SaO2% (BldA) [Mass fraction] 98 % Dr. Ramone Smiley Work Phone: [facility] 08-17-2023 13:26-0500 Systolic blood pressure 140 mm[Hg] Dr. Ramone Smiley Work Phone: [facility] 08-14-2023 13:28-0500 Body height 160.[address] Ramone Smiley Work Phone: [facility] 08-14-2023 13:28-0500 Body weight 60.[address] Ramone Smiley Work Phone: [facility] 08-13-2023 15:22-0500 Body mass index (BMI) [Ratio] 23.4 kg/m2 Dr. Ramone Smiley Work Phone: [facility] 08-13-2023 14:18-0500 Body temperature 98.6 [degF] Dr. Ramone Smiley Work Phone: [facility] 08-13-2023 14:18-0500 Diastolic blood pressure 59 mm[Hg] Dr. Ramone Smiley Work Phone: [facility] 08-13-2023 14:18-0500 Heart rate 107 /min Dr. Ramone Smiley Work Phone: [facility] 08-13-2023 14:18-0500 Respiratory rate 20 /min Dr. Ramone Smiley Work Phone: [facility] 08-13-2023 14:18-0500 SaO2% (BldA) [Mass fraction] 97 % Dr. Ramone Smiley Work Phone: [facility] 08-13-2023 14:18-0500 Systolic blood pressure 152 mm[Hg] Dr. Ramone Smiley Work Phone: [facility] 08-13-2023 10:03-0500 Body height 160.[address] Ramone Smiley Work Phone: [facility] 08-13-2023 10:03-0500 Body mass index (BMI) [Ratio] 24.5 kg/m2 Dr. Ramone Smiley Work Phone: [facility] 08-13-2023 10:03-0500 Body weight [address] Ramone Smiley Work Phone: [facility] 08-07-2023 20:23-0500 Body temperature 97.6 [degF] Dr. Ramone Smiley Work Phone: [facility] 08-07-2023 20:23-0500 Diastolic blood pressure 51 mm[Hg] Dr. Ramone Smiley Work Phone: [facility] 08-07-2023 20:23-0500 Heart rate 87 /min Dr. Ramoen Smiley Work Phone: [facility] 08-07-2023 20:23-0500 Respiratory rate 18 /min Dr. Ramone Smiley Work Phone: [facility] 08-07-2023 20:23-0500 SaO2% (BldA) [Mass fraction] 98 % Dr. Ramone Smiley Work Phone: [facility] 08-07-2023 20:23-0500 Systolic blood pressure 115 mm[Hg] Dr. Ramone Smiley Work Phone: [facility] 07-19-2023 01:01-0500 Diastolic blood pressure 61 mm[Hg] Dr. Ramone Smiley Work Phone: [facility] 07-19-2023 01:01-0500 Heart rate 101 /min Dr. Ramone Smiley Work Phone: [facility] 07-19-2023 01:01-0500 Respiratory rate 20 /min Dr. Ramone Smiley Work Phone: [facility] 07-19-2023 01:01-0500 Systolic blood pressure 145 mm[Hg] Dr. Ramone Smiley Work Phone: [facility] 07-18-2023 23:28-0500 Body mass index (BMI) [Ratio] 25.7 kg/m2 Dr. Ramone Smiley Work Phone: [facility] 07-18-2023 23:28-0500 Body weight 65.[address] Ramone Smiley Work Phone: [facility] 07-18-2023 22:47-0500 Body temperature 97.6 [degF] Dr. Ramone Smiley Work Phone: [facility] 07-18-2023 22:47-0500 SaO2% (BldA) [Mass fraction] 96 % Dr. Ramone Smiley Work Phone: [facility] 07-18-2023 22:44-0500 Body height 160.[address] Ramone Smiley Work Phone: [facility] 07-15-2023 13:24-0500 Body temperature 98.2 [degF] Dr. Ramone Smiley Work Phone: [facility] 07-15-2023 13:24-0500 Diastolic blood pressure 74 mm[Hg] Dr. Ramone Smiley Work Phone: [facility] 07-15-2023 13:24-0500 Heart rate 89 /min Dr. Ramone Smiley Work Phone: [facility] 07-15-2023 13:24-0500 SaO2% (BldA) [Mass fraction] 92 % Dr. Ramone Smiley Work Phone: [facility] 07-15-2023 13:24-0500 Systolic blood pressure 122 mm[Hg] Dr. Ramone Smiley Work Phone: [facility] 01-28-2023 16:36-0400 Diastolic blood pressure 63 mm[Hg] [facility] 01-28-2023 16:36-0400 Heart rate 75 /min [facility] 01-28-2023 16:36-0400 Systolic blood pressure 170 mm[Hg] [facility] 01-28-2023 14:54-0400 Body height 160.02 cm [facility] 01-28-2023 14:54-0400 Body mass index (BMI) [Ratio] 26.9 kg/m2 [facility] 01-28-2023 14:54-0400 Body temperature 97.8 [degF] [facility] 01-28-2023 14:54-0400 Body weight 69 kg [facility] 01-28-2023 14:54-0400 Respiratory rate 25 /min [facility] 01-28-2023 14:54-0400 SaO2% (BldA) [Mass fraction] 97 % [facility] 07-14-2022 18:11-0500 Diastolic blood pressure 64 mm[Hg] [facility] Work Phone: 07-14-2022 18:11-0500 Heart rate 73 /min [facility] Work Phone: 07-14-2022 18:11-0500 Respiratory rate 18 /min [facility] Work Phone: 07-14-2022 18:11-0500 SaO2% (BldA) [Mass fraction] 98 % [facility] Work Phone: 07-14-2022 18:11-0500 Systolic blood pressure 174 mm[Hg] [facility] Work Phone: 07-14-2022 11:59-0500 Body height 160.02 cm [facility] Work Phone: 07-14-2022 11:59-0500 Body mass index (BMI) [Ratio] 31.1 kg/m2 [facility] Work Phone: 07-14-2022 11:59-0500 Body temperature 97.2 [degF] [facility] Work Phone: 07-14-2022 11:59-0500 Body weight 79.83 kg [facility] Work Phone: 05-07-2022 13:26-0400 Body height 158.1 cm Lashonda Iarheta SPLICING MACHINE OPERATOR AUTOMATIC.POLISHING WHEEL SETTER Work Phone: [facility] 05-07-2022 13:26-0400 Body temperature 97.2 [degF] 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 SPLICING MACHINE OPERATOR AUTOMATIC.POLISHING WHEEL SETTER Work Phone: [facility] 05-07-2022 13:26-0400 Body weight 73.71 kg 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 SPLICING MACHINE OPERATOR AUTOMATIC.POLISHING WHEEL SETTER Work Phone: [facility] 05-07-2022 13:26-0400 Diastolic blood pressure 68 mm[Hg] 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 SPLICING MACHINE OPERATOR AUTOMATIC.POLISHING WHEEL SETTER Work Phone: [facility] 05-07-2022 13:26-0400 Heart rate 66 /min 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 SPLICING MACHINE OPERATOR AUTOMATIC.POLISHING WHEEL SETTER Work Phone: [facility] 05-07-2022 13:26-0400 Systolic blood pressure 160 mm[Hg] Lashonda Javedenter SPLICING MACHINE OPERATOR AUTOMATIC.POLISHING WHEEL SETTER Work Phone: [facility] 02-26-2022 09:43-0400 Body height 160.[address] Ramone Smiley Work Phone: [facility] Work Phone: 02-26-2022 09:43-0400 Body mass index (BMI) [Ratio] 28.1 kg/m2 Dr. Ramone Smiley Work Phone: [facility] Work Phone: 02-26-2022 09:43-0400 Body temperature 97.9 [degF] Dr. Ramone Smiley Work Phone: [facility] Work Phone: 02-26-2022 09:43-0400 Body weight 72.[address] Ramone Smiley Work Phone: [facility] Work Phone: 02-26-2022 09:43-0400 Diastolic blood pressure 80 mm[Hg] Dr. Ramone Smiley Work Phone: [facility] Work Phone: 02-26-2022 09:43-0400 Heart rate 70 /min Dr. Ramone Smiley Work Phone: [facility] Work Phone: 02-26-2022 09:43-0400 Respiratory rate 14 /min Dr. Ramone Smiley Work Phone: [facility] Work Phone: 02-26-2022 09:43-0400 SaO2% (BldA) [Mass fraction] 98 % Dr. Ramone Smiley Work Phone: [facility] Work Phone: 02-26-2022 09:43-0400 Systolic blood pressure 134 mm[Hg] Dr. Ramone Smiley Work Phone: [facility] Work Phone: 12-17-2021 13:23-0400 Diastolic blood pressure 60 mm[Hg] Dr. Ramone Smiley Work Phone: [facility] Work Phone: 12-17-2021 13:23-0400 Systolic blood pressure 154 mm[Hg] Dr. Ramone Smiley Work Phone: [facility] Work Phone: 12-10-2021 10:34-0400 Diastolic blood pressure 70 mm[Hg] Dr. Ramone Smiley Work Phone: [facility] Work Phone: 12-10-2021 10:34-0400 Systolic blood pressure 124 mm[Hg] Dr. Ramone Smiley Work Phone: [facility] Work Phone: 12-06-2021 15:22-0400 Body mass index (BMI) [Ratio] 30.2 kg/m2 Dr. Ramone Smiley Work Phone: [facility] Work Phone: 12-06-2021 15:22-0400 Body weight 77.[address] Ramone Smiley Work Phone: [facility] Work Phone: 12-06-2021 15:22-0400 Diastolic blood pressure 84 mm[Hg] Dr. Ramone Smiley Work Phone: [facility] Work Phone: 12-06-2021 15:22-0400 Systolic blood pressure 122 mm[Hg] Dr. Ramone Smiley Work Phone: [facility] Work Phone: 12-06-2021 15:22-0400 Body height 160.[address] Ramone Smiley Work Phone: [facility] Work Phone: 12-06-2021 15:22-0400 Body mass index (BMI) [Ratio] 30.2 kg/m2 Dr. Ramone Smiley Work Phone: [facility] Work Phone: 12-06-2021 15:22-0400 Body weight 77.[address] Ramone Smiley Work Phone: [facility] Work Phone: 12-06-2021 15:22-0400 Diastolic blood pressure 84 mm[Hg] Dr. Ramone Smiley Work Phone: [facility] Work Phone: 12-06-2021 15:22-0400 Systolic blood pressure 122 mm[Hg] Dr. Ramone Smiley Work Phone: [facility] Work Phone: 12-04-2021 11:22-0400 Diastolic blood pressure 70 mm[Hg] Dr. Ramone Smiley Work Phone: [facility] Work Phone: 12-04-2021 11:22-0400 Systolic blood pressure 124 mm[Hg] Dr. Ramone Smiley Work Phone: [facility] Work Phone: 12-04-2021 11:22-0400 Diastolic blood pressure 70 mm[Hg] Dr. Ramone Smiley Work Phone: [facility] Work Phone: 12-04-2021 11:22-0400 Systolic blood pressure 124 mm[Hg] Dr. Ramone Smiley Work Phone: [facility] Work Phone: 12-02-2021 14:03-0400 Diastolic blood pressure 60 mm[Hg] Dr. Ramone Smiley Work Phone: [facility] Work Phone: 12-02-2021 14:03-0400 Systolic blood pressure 138 mm[Hg] Dr. Ramone Smiley Work Phone: [facility] Work Phone: 12-02-2021 14:03-0400 Diastolic blood pressure 60 mm[Hg] Dr. Ramone Smiley Work Phone: [facility] Work Phone: 12-02-2021 14:03-0400 Systolic blood pressure 138 mm[Hg] Dr. Ramone Smiley Work Phone: [facility] Work Phone: 01-13-2017 14:21-0400 BMI (Body [...] 01-13-2017 14:21-0400 Weight 79.2 kg Zuleika Heaton [facility] Work Phone: 10-09-2015 11:00-0500 BSA (Body Surface Area) 1.91 m2 Zuleika Heaton [facility] Work Phone: 08-29-2015 11:19-0500 Heart rate 109 /min Zuleika Heaton [facility] Work Phone: Encounters Encounter Date Encounter Type Care Provider Facility Start: 04-02-2025 Evaluation and management of inpatient Dr. Ramone Smiley MD Work Phone: -Intensive Care Unit Start: 04-02-2025 Dr. Sandeep Jean Baptiste DO -Intensive Care Unit Work Phone: Start: 03-25-2025 Dr. Melba Hartmann MD - [facility] Work Phone: Start: 03-24-2025 Dr. Melba Hartmann MD - [facility] Work Phone: Start: 03-23-2025 Dr. Melba Hartmann MD - [facility] Work Phone: Start: 03-22-2025 Dr. Melba Hartmann MD - [facility] Work Phone: Start: 03-21-2025 ambulatory Abigail Foster Facility :[facility] Start: 03-21-2025 End: 03-25-2025 Evaluation and management of inpatient Dr. Ramone Smiley MD Work Phone: -Medical Surgical 3 Start: 03-21-2025 End: 03-25-2025 Dr. Abigail Foster MD -Medical Surgical 3 Work Phone: Start: 03-09-2025 Whitney Cao NP-C -[facility] Work Phone: Start: 03-09-2025 ambulatory Whitney Cao HEADEND TECHNICIAN Facili ty:[facility] Start: 03-07-2025 ambulatory Whitney Cao HEADEND TECHNICIAN Facili ty:[facility] Start: 03-07-2025 Dr. Se Good MD -[facility] Start: 03-07-2025 End: 03-07-[address] Ramone Smiley MD Work Phone: -Cardiovascular Services Start: 03-07-2025 End: 03-07-2025 Whitney Cao HEADEND TECHNICIAN-C -Cardiovascular Services Work Phone: Start: 03-07-2025 End: 03-07-2025 ambulatory Whitney Cao NP Facility:[facility] Start: 03-04-2025 End: 03-04-2025 Dr. Ramone Smiley MD Work Phone: -Emergency Department Work Phone: Start: 03-04-2025 End: 03-04-2025 Emergency department patient visit Dr. Ramone Smiley MD Work Phone: -Emergency Department Start: 02-28-2025 Dr. Asha Anguiano MD -[facility] U[facility] Work Phone: Start: 02-18-2025 End: 02-19-2025 Dr. Ramone Smiley MD Work Phone: -Emergency Department Work Phone: Start: 02-18-2025 End: 02-19-2025 Emergency department patient visit Dr. Ramone Smiley MD Work Phone: [facility] Work Phone: Start: 02-17-2025 Dr. Heydi Amaya MD - [facility] Work Phone: Start: 02-16-2025 Dr. Heydi Amaya MD - [facility] Work Phone: Start: 02-15-2025 End: 02-17-2025 ambulatory Nestor Bartlett Facility:[facility] Start: 02-15-2025 End: 02-17-[address] Ramone Smiley MD Work Phone: [facility] Work Phone: Start: 02-15-2025 End: 02-17-2025 Dr. Nestor Bartlett DO -Medical Surgical 3 Work Phone: Start: 02-13-2025 Dr. Lucio Borden formerly [facility] Work Phone: Start: 02-12-2025 Dr. Lucio Borden formerly [facility] Work Phone: Start: 02-11-2025 Dr. Lucio Borden formerly [facility] Work Phone: Start: 02-10-2025 Dr. Lucio Borden formerly [facility] Work Phone: Start: 02-09-2025 ambulatory Lucio Borden Facilit y:[facility] Start: 02-09-2025 End: 02-13-2025 Evaluation and management of inpatient Dr. Ramone Smiley MD Work Phone: [facility] Work Phone: Start: 02-09-2025 End: 02-13-[address] [facility] Work Phone: Start: 02-07-2025 End: 02-07-[address] Ramone Smiley MD Work Phone: [facility] Work Phone: Start: 02-07-2025 End: 02-07-2025 Dr. Ramone Smiley MD -[facility] Start: 02-07-2025 End: 02-07-2025 ambulatory Ramone Smiley Facility:[facility] Start: 02-06-2025 Dr. Lucio Borden DO [facility] Work Phone: Start: 02-05-2025 Dr. Lucio Borden formerly [facility] Work Phone: Start: 02-04-2025 Dr. Lucio Borden formerly [facility] Work Phone: Start: 02-04-2025 ambulatory Ramone Smiley Facility:[facility] Start: 02-04-2025 End: 02-06-2025 Evaluation and management of inpatient Dr. Rmaone Smiley MD Work Phone: [facility] Work Phone: Start: 02-04-2025 End: 02-06-2025 Dr. Lucio Borden DO -Progressive Care Unit Work Phone: Start: 01-31-2025 End: 01-31-2025 Whitney SUGGS -[facility] Work Phone: Start: 01-31-2025 End: 01-31-[address] Ramone Smiley MD Work Phone: [facility] Work Phone: Start: 01-26-2025 End: 01-26-2025 Dr. Ramone Smiley MD Work Phone: -Emergency Department Work Phone: Start: 01-26-2025 End: 01-26-2025 Emergency department patient visit Dr. Ramone Smiley MD Work Phone: [facility] Work Phone: Start: 01-24-2025 Dr. Melba Hartmann MD - [facility] Work Phone: Start: 01-23-2025 Dr. Becca Silverman MD -[facility] Start: 01-23-2025 Dr. Melba Hartmann MD - [facility] Work Phone: Start: 01-22-2025 Dr. Melba Hartmann MD - [facility] Work Phone: Start: 01-21-2025 Dr. Melba Hartmann MD - [facility] Work Phone: Start: 01-20-2025 ambulatory Ramone Smiley Facility:[facility] Start: 01-20-2025 Dr. Marcelina Soto MD -[facility] Start: 01-20-2025 ambulatory Sandeep Babb ty:[facility] Start: 01-20-2025 End: 01-24-2025 Evaluation and management of inpatient Dr. Ramone Smiley MD Work Phone: [facility] Work Phone: Start: 01-20-2025 End: 01-24-2025 Dr. Melba Hartmann MD -Progressive Care Unit Work Phone: Start: 01-19-2025 End: 01-19-[address] Ramone Smiley MD Work Phone: [facility] Work Phone: Start: 01-19-2025 End: 01-19-2025 Dr. Ramone Smiley MD -Laboratory [facility] Start: 01-19-2025 End: 01-19-2025 ambulatory Ramone Smiley Facility:[facility] Start: 01-15-2025 End: 01-15-2025 Dr. Jeevan [...] Work Phone: Start: 11-21-2024 ambulatory Ramone Smiley Facility:[facility] Start: 11-21-[address] Ramone Smiley MD -Physical Therapy Work Phone: Start: 11-21-2024 Dr. Ramone Smiley MD -Phys ical Therapy Work Phone: Start: 09-27-2024 End: 09-27-[address] Ramone Smiley MD -Laboratory, [facility] Start: 09-27-2024 End: 09-27-2024 Dr. Ramone Smiley MD -Laboratory [facility] Start: 09-27-2024 End: 09-27-2024 ambulatory Ramone Smiley Facility:[facility] Start: 07-19-2024 End: 07-19-2024 ambulatory [facility] Facility:[facility] Start: 06-19-2024 End: 06-20-2024 Emergency department patient visit Billy Kothari Facility:[facility] Start: 05-30-2024 End: 05-30-2024 Emergency department patient visit Kwaku Marcial Facility:[facility] Start: 05-18-2024 End: 05-18-2024 ambulatory Jason BHATTI Facility:[facility] Start: 04-18-2024 End: 04-18-2024 ambulatory Ramone Smiley Facility:[facility] Start: 12-30-2023 Non-patient / Non-visit Dr. Richar Smiley Work Phone: [facility] Work Phone: Start: 12-29-2023 Non-patient / Non-visit Dr. Richar Smiley Work Phone: [facility] Work Phone: Start: 12-28-2023 Non-patient / Non-visit Dr. Richar Smiley Work Phone: [facility] Work Phone: Start: 12-27-2023 End: 12-30-2023 Evaluation and management of inpatient [facility]-Medical Surgical 3 Work Phone: Start: 10-26-2023 End: 10-26-[address] Ramone Smiley Work Phone: [facility] Work Phone: Start: 10-26-2023 End: 10-26-[address] Ramone Smiley Work Phone: [facility] Start: 08-17-2023 Non-patient / Non-visit Dr. Richar Smiley Work Phone: [facility] Work Phone: Start: 08-16-2023 Non-patient / Non-visit Dr. Richar Smiley Work Phone: [facility] Work Phone: Start: 08-15-2023 Non-patient / Non-visit Dr. Richar Smiley Work Phone: [facility] Work Phone: Start: 08-14-2023 Non-patient / Non-visit Dr. Richar Smiley Work Phone: [facility] Work Phone: Start: 08-13-2023 End: 08-17-2023 Evaluation and management of inpatient Dr. Ramone Smiley Work Phone: [facility]-Progressive Care Unit Work Phone: Start: 08-07-2023 End: 08-07-2023 Emergency department patient [facility] Start: 07-18-2023 End: 07-19-2023 Emergency department patient visit Dr. Ramone Smiley [facility] Start: 07-15-2023 End: 07-15-[address] Ramone Smiley Work Phone: [facility] Work Phone: Start: 06-01-2023 End: 06-01-[address] Ramone Smiley [facility] Work Phone: Start: 05-27-2023 End: 05-27-[address] Ram[facility] Smiley [facility] [place] Work Phone: Start: 05-15-2023 End: 05-15-[address] Ramone Smiley Work Phone: [facility]-Radiology, [place] Work Phone: Start: 03-24-2023 End: 03-24-2023 ambulatory [facility] Work Phone: Start: 03-24-2023 End: 03-24-2023 Patient encounter procedure [facility]-Ul[facility]ound, [facility] Work Phone: Start: 02-05-2023 End: 02-05-2023 ambulatory [facility] Work Phone: Start: 02-05-2023 End: 02-05-2023 Patient encounter procedure [facility], [facility] Start: 01-28-2023 End: 01-28-2023 Emergency department patient visit [facility]Emergency Department Start: 01-28-2023 End: 01-28-2023 ambulatory [facility] Work Phone: Start: 01-28-2023 End: 01-28-2023 [facility] Start: 12-09-2022 End: 12-09-2022 ambulatory [facility] Work Phone: Start: 12-09-2022 End: 12-09-2022 Patient encounter procedure [facility] Start: 08-13-2022 End: 08-13-2022 ambulatory [facility] Work Phone: Start: 08-13-2022 End: 08-13-2022 Patient encounter procedure [facility]-Outpatient [facility] Start: 07-14-2022 End: 07-14-2022 Emergency department patient visit [facility]Emergency Department Start: 05-07-2022 End: 05-07-2022 ambulatory 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 APRN.POLISHING WHEEL SETTER Work Phone: Hematology/Oncology Comment on above: Iron deficiency anem ia due to chronic blood loss (Primary Dx) Start: 05-07-2022 End: 05-07-2022 Patient encounter procedure 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 APRN.POLISHING WHEEL SETTER Work Phone: [facility] Start: 02-27-2022 End: 02-27-[address] Ramone Smiley Work Phone: [facility], [facility] Start: 02-26-2022 End: 02-26-[address] Ramone Smiley Work Phone: [facility] Start: 02-10-2022 Telephone encounter Joseph sanders DO Work Phone: Hematology/Oncology Comment on above: Results (CBC and iro n levels) Start: 01-31-2022 Orders Only Joseph Lim Work Phone: Hematology/Oncology Comment on above: Iron deficiency anem ia due to chronic blood loss (Primary Dx) Start: 12-17-2021 End: 12-17-[address] Ramone Smiley Work Phone: [facility] Start: 12-10-2021 End: 12-10-[address] Ramone Smiley Work Phone: [facility] Start: 12-06-2021 End: 12-06-[address] Ramone Smiley Work Phone: [facility] Start: 12-04-2021 End: 12-04-[address] Ramone Smiley Work Phone: [facility] Start: 12-02-2021 End: 12-02-[address] Ramone Smiley Work Phone: [facility]-Laboratory, Specimen Start: 12-02-2021 End: 12-02-[address] Ramone Smiley Work Phone: [facility] Start: 09-29-2021 Telephone encounter Joseph sanders DO Work Phone: Hematology/Oncology Comment on above: Results; Follow Up Start: 09-13-2021 End: 09-13-[address] Ramone Smiley Work Phone: [facility]-Nuclear Medicine, [facility] Start: 08-21-[address] Ramone Smiley Work Phone: [facility]Out[facility] Start: 08-12-2021 End: 08-12-[address] Ramone Smiley Work Phone: [facility] Start: 03-14-2021 Telephone encounter Joseph sanders DO Work Phone: Hematology/Oncology Comment on above: Results Start: 01-18-2018 Ambulatory LEE ALAMO [facility] Procedures Date Procedure Procedure Detail Performing [...] MMConnor Good MD Start: 08-29-2015 End: 08-29-2015 SLEEVE SETTER LOCKSTITCH Se Good MD Start: 08-29-2015 End: 08-29-2015 [...] Activity Detail Author Start: 04-02-2025 Verification routine [facility] Start: 04-02-2025 Admission procedure [facility] Start: 04-02-2025 CT of thorax with contrast [facility] Start: 04-02-2025 Gas panel - Arterial blood [facility] Start: 04-02-2025 Hospital admission, emergency, from emergency room, medical nature [facility] Start: 04-02-2025 End: 04-02-2025 [facility] Start: 04-02-2025 Continuous pulse oximetry [facility] Start: 04-02-2025 Dual pressure sponta neous ventilation support [facility] Start: 03-25-2025 Patient discharge [facility] Start: 03-24-2025 Referral to service [facility] Start: 03-24-2025 [facility] Start: 03-23-2025 [facility] Start: 03-23-2025 [facility] Start: 03-23-2025 [facility] Start: 03-22-2025 Aspiration precautions [facility] Start: 03-22-2025 Speech therapy assessment [facility] Start: 03-22-2025 Following clinical pathway protocol [facility] Start: 03-22-2025 Assessment of risk o f venous thromboembolism [facility] Start: 03-22-2025 Care regimes management [facility] Start: 03-22-2025 Fall prevention [facility] Start: 03-22-2025 Inhalation therapy procedure [facility] Start: 03-22-2025 Insertion of cathete r into peripheral vein [facility] Start: 03-22-2025 Introduction of urin david catheter [facility] Start: 03-22-2025 Measuring intake and output [facility] Start: 03-22-2025 Notification of physician [facility] Start: 03-22-2025 Oxygen therapy [facility] Start: 03-22-2025 Providing care accor ding to standard [facility] Start: 03-22-2025 Provision of activit y privileges [facility] Start: 03-22-2025 Referral to occupati onal therapist [facility] Start: 03-22-2025 Referral to service [facility] Start: 03-22-2025 End: 03-22-2025 [facility] Start: 03-22-2025 Patient referral to dietitian [facility] Start: 03-21-2025 Verification routine [facility] Start: 03-21-2025 Admission procedure [facility] Start: 03-21-2025 Hospital admission, emergency, from emergency room, medical nature [facility] Start: 03-21-2025 End: 03-22-2025 [facility] Start: 03-07-2025 Cardiovascular stres s test using pharmacologic stress agent [facility] Start: 03-07-2025 NM Heart Views W str ess and W radionuclide IV [facility] Start: 03-04-2025 [facility] Start: 03-04-2025 End: 03-04-2025 [facility] Start: 03-04-2025 Blood culture [facility] Start: 02-19-2025 [facility] Start: 02-18-2025 [facility] Start: 02-17-2025 Patient discharge [facility] Start: 02-17-2025 [facility] Start: 02-16-2025 End: 02-16-2025 [facility] Start: 02-15-2025 [facility] Start: 02-15-2025 Following clinical pathway protocol [facility] Start: 02-15-2025 Ambulation without limitation [facility] Start: 02-15-2025 Assessment of risk o f venous thromboembolism [facility] Start: 02-15-2025 Care regimes management [facility] Start: 02-15-2025 Insertion of cathete r into peripheral vein [facility] Start: 02-15-2025 Notification of physician [facility] Start: 02-15-2025 Oxygen therapy [facility] Start: 02-15-2025 Providing care accor ding to standard [facility] Start: 02-15-2025 Referral to occupati onal therapist [facility] Start: 02-15-2025 Referral to service [facility] Start: 02-15-2025 [facility] Start: 02-15-2025 Verification routine [facility] Start: 02-15-2025 Admission procedure [facility] Start: 02-15-2025 Hospital admission, emergency, from emergency room, medical nature [facility] Start: 02-15-2025 [facility] Start: 02-15-2025 End: 02-15-2025 [facility] Start: 02-15-2025 Inhalation therapy procedure [facility] Start: 02-13-2025 Patient discharge [facility] Start: 02-11-2025 Inhalation therapy procedure [facility] Start: 02-10-2025 [facility] Start: 02-10-2025 Referral to service [facility] Start: 02-09-2025 Care regimes management [facility] Start: 02-09-2025 Notification of physician [facility] Start: 02-09-2025 [facility] Start: 02-09-2025 Following clinical pathway protocol [facility] Start: 02-09-2025 Ambulation without limitation [facility] Start: 02-09-2025 Assessment of risk o f venous thromboembolism [facility] Start: 02-09-2025 Catheterization of vein [facility] Start: 02-09-2025 Insertion of cathete r into peripheral vein [facility] Start: 02-09-2025 Oxygen therapy [facility] Start: 02-09-2025 Providing care accor ding to [facility] Start: 02-09-2025 Referral to occupati onal therapist [facility] Start: 02-09-2025 Referral to service [facility] Start: 02-09-2025 [facility] Start: 02-09-2025 Verification routine [facility] Start: 02-09-2025 Admission procedure [facility] Start: 02-09-2025 Hospital admission, emergency, from emergency room, medical nature [facility] Start: 02-09-2025 [facility] Start: 02-09-2025 Patient referral to dietitian [facility] Start: 02-06-2025 Patient discharge [facility] Start: 02-06-2025 Referral to service [facility] Start: 02-05-2025 [facility] Start: 02-04-2025 End: 02-04-2025 [facility] Start: 02-04-2025 Care regimes management [facility] Start: 02-04-2025 Notification of physician [facility] Start: 02-04-2025 Following clinical pathway protocol [facility] Start: 02-04-2025 Care planning and pr oblem solving actions [facility] Start: 02-04-2025 Ambulation without limitation [facility] Start: 02-04-2025 Assessment of risk o f venous thromboembolism [facility] Start: 02-04-2025 Catheterization of vein [facility] Start: 02-04-2025 Inhalation therapy procedure [facility] Start: 02-04-2025 Insertion of cathete r into peripheral vein [facility] Start: 02-04-2025 Oxygen therapy [facility] Start: 02-04-2025 Providing care accor ding to [facility] Start: 02-04-2025 [facility] Start: 02-04-2025 Hospital admission, emergency, from emergency room, medical nature [facility] Start: 02-04-2025 Verification routine [facility] Start: 02-04-2025 Admission procedure [facility] Start: 02-04-2025 [facility] Start: 02-04-2025 [facility] Start: 01-26-2025 [facility] Start: 01-24-2025 Referral to service [facility] Start: 01-24-2025 Patient discharge [facility] Start: 01-21-2025 [facility] Start: 01-21-2025 Referral to carpenter general [facility] Start: 01-20-2025 Oxygen therapy [facility] Start: 01-20-2025 Blood culture [facility] Start: 01-20-2025 Notification of physician [facility] Start: 01-20-2025 [facility] Start: 01-20-2025 End: 01-20-2025 [facility] Start: 01-20-2025 Application of intermittent pneumatic compression device [facility] Start: 01-20-2025 Following clinical pathway protocol [facility] Start: 01-20-2025 Cardiac monitoring [facility] Start: 01-20-2025 Catheterization of vein [facility] Start: 01-20-2025 Notification of physician [facility] Start: 01-20-2025 Vital signs measurements [facility] Start: 01-20-2025 Admission procedure [facility] Start: 01-20-2025 End: 01-20-2025 [facility] Start: 01-20-2025 Care regimes management [facility] Start: 01-20-2025 Inhalation therapy procedure [facility] Start: 01-20-2025 Patient referral to dietitian [facility] Start: 01-15-2025 [facility] Start: 01-15-2025 [facility] Start: 01-07-2025 [facility] Start: 12-30-2023 Patient discharge [facility] Start: 12-30-2023 Inhalation therapy procedure [facility] Start: 12-28-2023 Application of intermittent pneumatic compression device [facility] Start: 12-28-2023 Provision of overbed trapeze [facility] Start: 12-28-2023 Recommendation to continue with treatment [facility] Start: 12-28-2023 Ambulation therapy management [facility] Start: 12-28-2023 Application of device [facility] Start: 12-28-2023 Assessment of risk o f venous thromboembolism [facility] Start: 12-28-2023 Catheterization of vein [facility] Start: 12-28-2023 Exercises [facility] Start: 12-28-2023 Following clinical pathway protocol [facility] Start: 12-28-2023 Introduction of urin david catheter [facility] Start: 12-28-2023 Measuring intake and output [facility] Start: 12-28-2023 Neurovascular assessment [facility] Start: 12-28-2023 Patient education [facility] Start: 12-28-2023 Procedure discontinued [facility] Start: 12-28-2023 Provision of activit y privileges [facility] Start: 12-28-2023 Referral to occupati onal therapist [facility] Start: 12-28-2023 Referral to service [facility] Start: 12-28-2023 Vital signs measurements [facility] Start: 12-28-2023 Wound care [facility] Start: 12-28-2023 [facility] Start: 12-28-2023 Blood chemistry [facility] Start: 12-28-2023 Complete blood count [facility] Start: 12-28-2023 Following clinical pathway protocol [facility] Start: 12-28-2023 Assessment of risk o f venous thromboembolism [facility] Start: 12-28-2023 Care regimes management [facility] Start: 12-28-2023 Consultation [facility] Start: 12-28-2023 Incentive spirometry [facility] Start: 12-28-2023 Insertion of cathete r into peripheral vein [facility] Start: 12-28-2023 Notification of physician [facility] Start: 12-28-2023 Oxygen therapy [facility] Start: 12-28-2023 Providing care accor ding to standard [facility] Start: 12-28-2023 Provision of activit y privileges [facility] Start: 12-28-2023 Referral to occupati onal therapist [facility] Start: 12-28-2023 Referral to service [facility] Start: 12-28-2023 [facility] Start: 12-27-2023 Verification routine [facility] Start: 12-27-2023 Admission procedure [facility] Start: 08-17-2023 Referral to service [facility] Start: 08-17-2023 Patient discharge [facility] Start: 08-16-2023 [facility] Start: 08-13-2023 Following clinical pathway protocol [facility] Start: 08-13-2023 Assessment of risk o f venous thromboembolism [facility] Start: 08-13-2023 Care regimes management [facility] Start: 08-13-2023 Insertion of cathete r into peripheral vein [facility] Start: 08-13-2023 Measuring intake and output [facility] Start: 08-13-2023 Notification of physician [facility] Start: 08-13-2023 Providing care accor ding to [facility] Start: 08-13-2023 Provision of activit y privileges [facility] Start: 08-13-2023 Referral to occupati onal therapist [facility] Start: 08-13-2023 Referral to service [facility] Start: 08-13-2023 [facility] Start: 08-13-2023 Admission procedure [facility] Start: 08-13-2023 Verification routine [facility] Start: 08-13-2023 Bacteria identified in Blood by Culture Blood Culture [facility] Start: 08-13-2023 Bacteria identified in Urine by Culture Urine Culture [facility] Start: 08-13-2023 Hospital admission, emergency, from emergency room, medical nature [facility] Start: 08-13-2023 [facility] Start: 08-13-2023 End: 08-13-2023 Blood culture [facility] Start: 08-13-2023 Inhalation therapy procedure [facility] Start: 08-13-2023 Patient referral to dietitian [facility] Start: 08-07-2023 [facility] Start: 07-19-2023 End: 07-19-2023 [facility] Start: 07-18-2023 Measurement of occul t blood in stool specimen using immunoassay [facility] Start: 07-18-2023 Bacteria identified in Urine by Culture Urine Culture [facility] Start: 05-07-2022 BP CONTROLLED (<130/80) BP CONTROLLE D (<130/80) [facility] Start: 05-01-2022 Influenza vaccination C [facility] Start: 03-28-2022 COVID-19 VACCINE (4 - Booster for Moderna series) COVID-19 VACCINE (4 - Booster for Moderna series) [facility] Start: 09-29-2021 End: 09-29-2022 MONOCLONAL PROTEIN, SERUM (BLOOD) MONOCLONAL PROTEIN, SERUM (BLOOD) Lab Routine Anemia, unspecified type Expected: 09/29/2021, Expires: 09/29/2022 [facility] Work Phone: Comment on above: Expected: 09/29/2021 , Expires: 09/29/2022 Start: 09-29-2021 End: 09-29-2022 PROTEIN ELECTROPHORESIS SERUM W/INTERP PROTEIN ELECTROPHORESIS SERUM W/INTERP Lab Routine Anemia, unspecified type Expected: 09/29/2021, Expires: 09/29/2022 [facility] Work Phone: Comment on above: Expected: 09/29/2021 , Expires: 09/29/2022 Start: 08-31-2021 ADVANCE DIRECTIVE DISCUSSION ADVANCE DIRECTIVE DISCUSSION [facility] Start: 05-16-2021 COVID-19 VACCINE (3 - Booster for Moderna series) COVID-19 VACCINE (3 - Booster for Moderna series) [facility] Start: 05-04-2018 Urine microalbumin profile DTAP,TDAP,TD (2 - Td or Tdap) [facility] Start: 08-16-2016 3 comp foot exam completed DIABETIC FOOT EXAM [facility] Start: 10-09-2015 End: 04-02-2016 Follow Up Appt 6 months Follow Up Appt 6 months [facility] Work Phone: Start: 10-09-2015 End: 04-02-2016 MMM MMM [facility] Work Phone: Start: 08-29-2015 End: 08-29-2015 SLEEVE SETTER LOCKSTITCH SLEEVE SETTER LOCKSTITCH [facility] Work Phone: Start: 08-29-2015 End: 08-29-2015 Electrocardiogram, complete EKG (In office) [facility] Work Phone: Start: 08-29-2015 End: 08-29-2015 Follow Up Appt 6 weeks Follow Up Appt 6 weeks [facility] Work Phone: Start: 07-01-2014 Hemoglobin A1c/Hemoglobin.total in Blood HBA1C [facility] Start: 06-25-2014 Hepatitis B surface antibody level LDL CHOLESTEROL [facility] Start: 06-17-2014 Hepatitis C antibody , confirmatory test DILATED RETINAL EXAM [facility] Start: 02-12-2013 PNEUMOCOCCAL: 65+ (2 - PCV) PNEUMOCOCCAL: 65+ (2 - PCV) [facility] Start: 02-12-2013 PNEUMOCOCCAL: 65+ (3 - PCV) PNEUMOCOCCAL: 65+ (3 - PCV) [facility] Start: 02-18-2012 SHINGRIX VACCINE (1 of 2) JIMENEZ GRIX VACCINE (1 of 2) [facility] Start: 02-18-2012 SHINGRIX VACCINE (2 of 3) JIMENEZ GRIX VACCINE (2 of 3) [facility] Start: 01-02-1962 ANNUAL PCP TEAM COLD ROLL CATCHER ERIS DISEASE VISIT ANNUAL PCP TEAM CHRONIC DISEASE VISIT [facility] Start: 01-02-1962 BP CONTROLLED (<130/80) BP CONTROLLE D (<130/80) [facility] Start: 01-02-1962 HEPATITIS C SCREENING HEPATITIS C SC FORTINO [facility] Start: 1956 Adult depression screening assessment DEPRESSION SCREENING [facility] Anion gap measurement [facility] Bacteria identified in Sputum by Respiratory culture [facility] BUN/Creatinine ratio [facility] Calcium [Mass/volume ] in Serum or Plasma [facility] Carbon dioxide, tota l [Moles/volume] in Serum or Plasma [facility] End: 01-31-2023 CBC W Auto Differential panel - Blood CBC + DIFF Lab STAT Iron deficiency anemia due to chronic blood loss Every 3 months for 4 Occurrences starting 01/31/2022 until 01/31/2023 [facility] Work Phone: Comment on above: Every 3 months for 4 Occurrences starting 01/31/2022 until 01/31/2023 End: 09-29-2022 CBC W Auto Differential panel - Blood CBC + DIFF Lab Routine Anemia, unspecified type 1 Occurrences starting 09/29/2021 until 09/29/2022 [facility] Work Phone: Comment on above: 1 Occurrences starti ng 09/29/2021 until 09/29/2022 Chloride [Moles/volu me] in Serum or Plasma [facility] End: 09-29-2022 Comprehensive metabolic 2000 panel - Serum or Plasma COMP METABOLIC PANEL Lab Routine Anemia, unspecified type 1 Occurrences starting 09/29/2021 until 09/29/2022 [facility] Work Phone: Comment on above: 1 Occurrences starti ng 09/29/2021 until 09/29/2022 Creatinine [Moles/vo lume] in Serum or Plasma [facility] Erythrocyte mean corpuscular volume determination [facility] End: 01-31-2023 FERRITIN BLD FERRITIN BLD Lab Routine Iron deficiency anemia due to chronic blood loss Every 3 months for 4 Occurrences starting 01/31/2022 until 01/31/2023 [facility] Work Phone: Comment on above: Every 3 months for 4 Occurrences starting 01/31/2022 until 01/31/2023 Glucose [Mass/volume ] in Serum or Plasma [facility] Hematocrit [Volume Fraction] of Blood [facility] Hemoglobin [Mass/vol ume] in Blood [facility] Hemoglobin A1c/Hemoglobin.total in Blood [facility] End: 01-31-2023 IRON + TIBC IRON + TIBC Lab Routine Iron deficiency anemia due to chronic blood loss Every 3 months for 4 Occurrences starting 01/31/2022 until 01/31/2023 [facility] Work Phone: Comment on above: Every 3 months for 4 Occurrences starting 01/31/2022 until 01/31/2023 Leukocytes [#/volume ] in Blood [facility] Magnesium measurement [facility] Mean corpuscular hemoglobin concentration determination [facility] Mean corpuscular hemoglobin determination [facility] Measurement of renal function [facility] Microorganism identi fied in Unspecified specimen by Culture [facility] Microscopic observat ion [Identifier] in Unspecified specimen by Gram stain [facility] NM Heart Views W str ess and W radionuclide IV [facility] Patient Education [facility] Work Phone: Patient referral [facility] Work Phone: Platelets [#/volume] in Blood [facility] Potassium [Moles/vol ume] in Serum or Plasma [facility] Procalcitonin [Mass/volume] in Serum or Plasma by Immunoassay [facility] Red blood cell count [facility] Red cell distributio n width determination [facility] Respiratory pathogen s DNA and RNA panel - Respiratory specimen by BEBETO with probe detection [facility] Sodium [Moles/volume ] in Serum or Plasma [facility] Troponin T.cardiac [Mass/volume] in Serum or Plasma by High sensitivity method [facility] Troponin T.cardiac [Mass/volume] in Serum or Plasma by High sensitivity method [facility] Urea nitrogen [Mass/volume] in Serum or Plasma [facility] Urine culture [facility] Urine culture [facility] Urine culture [facility] US Heart limited [facility] Immunizations Immunization Date Immunization Notes Care Provider [facility] 07-03-2022 influenza, injectabl e, quadrivalent, preservative free Dr. Ramone Smiley MD Work Phone: [facility] 11-26-2021 Covid (Moderna) Dr. Ramone leon MD Work Phone: [facility] 08-22-2015 pneumococcal conjuga te vaccine, [address] Ramone Smiley MD Work Phone: [facility] 07-12-2012 influenza virus vacc ine, unspecified formulation Joseph Rolle DO Work Phone: [facility] 02-13-2012 pneumococcal polysaccharide vaccine, 23 valent Joseph Rolle DO Work Phone: [facility] 12-24-2011 zoster vaccine, live Joseph chatterjee DO Work Phone: [facility] 06-02-2011 influenza virus vacc jcarlos, unspecified formulation Joseph Rolle DO Work Phone: [facility] 08-09-2010 influenza virus vacc jcarlos, unspecified formulation Joseph Rolle DO Work Phone: [facility] 05-30-2009 influenza virus vacc jcarlos, unspecified formulation Joseph Rolle DO Work Phone: [facility] 09-07-2008 influenza virus vacc ine, unspecified formulation Joseph Rolle DO Work Phone: [facility] Work Phone: 05-04-2008 tetanus toxoid, redu octavio diphtheria toxoid, and acellular pertussis vaccine, adsorbed Joseph Rolle DO Work Phone: [facility] Work Phone: 06-28-2007 influenza virus vacc jcarlos, unspecified formulation Joseph Rolle DO Work Phone: [facility] Work Phone: 08-31-2005 pneumococcal polysaccharide vaccine, 23 valent Joseph Rolle DO Work Phone: [facility] Work Phone: Payers Date Payer Category Payer Self-pay [id number] 2017 Medicare [employer]NA MEDICARE [employer] MEDICARE PPO [id number] 2017-Present [phone] [address] [place] [address] PPO [id number] 2017 Medicare HU[employer]NA MEDICARE HU[employer] MEDICARE PPO [id number] 2017-Present [phone] [place] [address] PPO [id number] 2016 Medicare [id number] Private Health Insurance Unknown [id number] 2.16.840.1.128636.3.579. 2.462 Unknown [id number] 2.16840.1.119681.3.579. 2.462 Unknown [id number] 2.16.840.1.306490.3.579. 2.462 Unknown [id number] 2.16.840.1.925920.3.579. 2.462 Unknown [id number] 2.840.1.537528.3.579. 2.462 Unknown [id number] 2.840.1.001558.3.579. 2.462 Unknown [id number] 2.840.1.041418.3.579. 2.462 Unknown [id number] 2.840.1.190866.3.579. 2.462 Unknown [id number] 2.840.1.822979.3.579. 2.462 Unknown [id number] 2.840.1.615515.3.579. 2.462 Unknown [id number] 2.840.1.930705.3.579. 2.462 Unknown [id number] 2.16840.1.667822.3.579. 2.462 Unknown [id number] 2.840.1.837512.3.579. 2.462 Unknown [id number] 2.840.1.833744.3.579. 2.462 Unknown [id number] 2.16.840.1.336875.3.579. 2.462 Unknown [id number] 2.16840.1.998786.3.579. 2.462 Unknown [id number] 2.16840.1.574455.3.579. 2.462 Unknown [id number] 2.16840.1.191676.3.579. 2.462 Unknown [id number] 2.16.840.1.677999.3.579. 2.462 Unknown [id number] 2.16840.1.506488.3.579. 2.462 Unknown [id number] 2.16.840.1.927846.3.579. 2.462 Unknown [id number] 2.16840.1.853574.3.579. 2.462 Unknown [id number] 2.840.1.085192.3.579. 2.462 Unknown [id number] 2.840.1.645206.3.579. 2.462 Unknown [id number] 2.840.1.854654.3.579. 2.462 Unknown [id number] 2.840.1.148589.3.579. 2.462 Unknown [id number] 2.840.1.329991.3.579. 2.462 Unknown [id number] 2.840.1.855099.3.579. 2.462 Unknown [id number] 2.840.1.765785.3.579. 2.462 Unknown [id number] 2.840.1.228466.3.579. 2.462 Unknown [id number] 2.840.1.389631.3.579. 2.462 Unknown [id number] 2.840.1.947722.3.579. 2.462 Unknown [id number] 2.16840.1.833210.3.579. 2.462 Unknown [id number] 2.840.1.261845.3.579. 2.462 Unknown [id number] 2.16840.1.921248.3.579. 2.462 Unknown [id number] 2.840.1.457355.3.579. 2.462 Unknown [id number] 2.16.840.1.059009.3.579. 2.462 Unknown [id number] 2.16840.1.154606.3.579. 2.462 Unknown [id number] 2.16.840.1.595739.3.579. 2.462 Unknown [id number] 2.16.840.1.766032.3.579. 2.462 Unknown [id number] 2.16.840.1.822287.3.579. 2.462 Unknown [id number] 2.16.840.1.688851.3.579. 2.462 Unknown [id number] 2.16840.1.784048.3.579. 2.462 Unknown [id number] 2.16840.1.734524.3.579. 2.462 Unknown [id number] 2.840.1.336317.3.579. 2.462 Unknown [id number] 2.840.1.321831.3.579. 2.462 Social History Date Type Detail Facility Start: 12-06-2021 End: 08-13-2023 Tobacco smoking status [facility] Unknown if ever smoked [facility] Start: 12-02-2019 None [facility] Start: 12-02-2019 Spouse/ Signif icant Other [facility] Start: 07-06-2020 Non-smoker [facility] Start: 1945 Sex Assigned At Female [facility] Start: 02-03-2012 End: 04-02-2025 Tobacco smoking status [facility] Ex-smoker [facility] End: 01-30-2012 History of tobacco use Current smoker [facility] End: 01-30-2012 History of tobacco use Cigarette Smoker [facility] Start: 02-03-2012 End: 03-22-2012 Cigarettes smoked current (pack per day) - Reported 0.5 [facility] Start: 02-03-2012 End: 03-22-2012 Tobacco use and exposure Smokeless tobacco non-user [facility] Start: 05-07-2021 End: 05-07-2022 Alcohol intake Current non-drinker of alcohol (finding) [facility] Start: 1945 Sex Assigned At Not on file [facility] Start: 10-05-2021 End: 11-04-2021 Exposure to SARS-CoV-2 (event) Not sure [facility] NEGATED: Highlighted row [facility] Medical Equipment Procedure Code Equipment Code Equipment Origin al Text Equipment Identifier Dates 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 Start: 12-28-2023 Primary uncemented hemiarthroplasty of hip unitrax neck adjustment sleeve FDA Start: 12-28-2023 Primary uncemented hemiarthroplasty of hip ([id number] FDA Start: 12-28-2023 Primary uncemented hemiarthroplasty of [...] 03-25-2025 Functional status Ambulates;Gume r;Bathroom Privilege [facility] Work Phone: 02-17-2025 Functional status Chair [facility] Work Phone: 02-16-2025 Functional status Well [facility] Work Phone: 02-13-2025 Functional status Chair [facility] Work Phone: 02-06-2025 Functional status Chair [facility] Work Phone: 01-24-2025 Functional status Ambulates [facility] Work Phone: 01-23-2025 Functional status Fair [facility] Work Phone: 12-30-2023 Functional status Bedrest [facility] Work Phone: 08-17-2023 Functional status Ambulates [facility] Work Phone: Mental Status Date Assessment Result Facility 03-25-2025 Cognitive function Voice/Name [facility] Work Phone: 02-17-2025 Cognitive function Voice/Name [facility] Work Phone: 02-13-2025 Cognitive function Voice/Name [facility] Work Phone: 02-06-2025 Cognitive function Voice/Name [facility] Work Phone: 01-24-2025 Cognitive function Voice/Name [facility] Work Phone: 12-30-2023 Cognitive function Voice/Name [facility] Work Phone: 08-17-2023 Cognitive function Voice/Name [facility] Work Phone: 08-13-2023 Cognitive function Level Of Cons ciousness Awake;Alert;Appropriate;Follow s Commands [facility] Work Phone: 01-28-2023 Cognitive function Level Of Cons ciousness Awake;Alert;Appropriate;Follow s Commands [facility] Work Phone: Clinical Notes 03-14-2021 to 04-02-2025 Note Date & Type Note Facility 04-02-2025 Radiology Diagnostic study note [facility] 03-25-2025 Discharge summary Note Date/Time March 25, 2025 2:37pm [facility] Medical Records Department [address] [place] [address] Discharge Summary 03/25/25 1133 MR#: [id number] Acct: [id number] Name: OLGA DONALDSON Rep #:[id number] : 1945 80 From: Melba Hartmann MD PCP: Dr. 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 [...] 03/22/25 12:41 RMA (Rec: 03/22/25 12:41 RMA [id number]) Nutrition Malnutrition Evidence of Yes Malnutrition Exists [...] Neut % (Auto) 61.3, Lymph % (Auto) 26.3,[place] % (Auto) 10.4 H, Eos % (Auto) [...] Health Service Charges/Coding Visit Charges Inpatient E&M: 85083 Disch Hosp >30min 03/25/25 1437 <Electronically signed by Melba Hartmann MD> Cosigner Signature (if applicable): CC: Dr. Ramone Smiley MD; Dr. Melba Hartmann MD~ Signed [facility] Work Phone: 1(841) 247-966607-26-2025 Hospital Discharge instructionsAdditional Instructions cardizem stopped. Metoprolol cut down to 12.5mg bid. Lasix reduced to 20mg daily due to to hypotension Date of Discharge: 03/25/25[facility] Work Phone: 1([phone]) 863-236707-26-2025 Discharge summary Author [facility] Note Date/Time March 25, 2025 11:3 3am [facility] Medical Records Department [address] [place] [address] Instructions for Home/Discharge Instructions 03/25/25 1126 MR#: [id number] Acct: [id number] Name: OLGA DONALDSON Rep #:[id number] : 1945 80 From: Melba Hartmann MD [...] Dr. Ramone Smiley MD ~ Signed [facility] Work Phone: 1([phone]) 183-242707-26-2025 [facility]07-25-2025 Progress note Author [facility] Note Date/Time March 24, 2025 4:46 pm [facility] Medical Records Department [address] [place] [address] Progress Note 03/24/25 1200 MR#: [id number] Acct: [id number] Name: OLGA DONALDSON Rep #:[id number] : 1945 80 From: Melba Hartmann MD PCP: Dr. Ramone Smiley MD Status:ADM IN Location: MS3 JD657-0 Subjective Subjective Patient seen and examined. She [...] 03/22/25 12:41 RMA (Rec: 03/22/25 12:41 RMA [id number]) Nutrition Malnutrition Evidence of Yes Malnutrition Exists [...] Neut % (Auto) 68.8, Lymph % (Auto) 21.3,[place] % (Auto) 8.5, Eos % (Auto) 0.8, [...] prophylaxis: heparin. Charges/Coding Visit Charges Inpatient E&M: 69745 Subs Hosp L2 03/24/25 7123 <Electronically signed by Melba Hartmann MD> Melba Hartmann MD Cosigner Signature (if applicable): CC: ~ Signed [facility] Work Phone: 1(590) 638-903107-25-2025 Discharge summary Author Ethan Suarez [facility] Note Date/Time March 23, 2025 10:1 2pm [facility] Medical Records Department [address] [place] [address] Emergency Department Summary 03/21/25 MR#: [id number] Acct: [id number] Name: OLGA DONALDSON Rep #:[id number] : 1945 80 From: Ethan Casanova PCP: Dr. Ramone Smiley MD Status:ADM IN [facility] <Dr. Ethan Suarez DO - Last [...] to prolonged laying down at skilled facility. [facility] <Dr. 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 It may contain incorrectwords, spelling, [...] % (Auto) 62.3 Lymph % (Auto) 27.1 [place] % (Auto) 8.6 Eos % (Auto) 0.8 [...] Sl. Cloudy Urine pH 7.0 Ur Specific [place] 1.010 Urine Protein 30 H Urine Glucose [...] in the abdominal CT report. Reading Location: [facility] Abdomen/Pelvis CT 03/21/25 18:02 IMPRESSION: 1. Similar patchy airspace consolidation in the bilateral lung bases, suggestingaspiration. 2. Moderate colonic stool burden with persistent mild distention and wall thickening of the rectal vault, suggesting chronic constipation and stercoral proctitis, although less pronounced from prior exam. 3. Multiple additional non-acute ancillary findings, as described above. Reading Location: [facility] <Dr. Noé Currie, DO - Last [...] clinician: N/A This note was generated with Chroma dictation software. It may contain incorrectwords, spelling, [...] % (Auto) 62.3 Lymph % (Auto) 27.1 [place] % (Auto) 8.6 Eos % (Auto) 0.8 [...] Sl. Cloudy Urine pH 7.0 Ur Specific [place] 1.010 Urine Protein 30 H Urine Glucose [...] in the abdominal CT report. Reading Location: [facility] Abdomen/Pelvis CT 03/21/25 18:02 IMPRESSION: 1. Similar patchy airspace consolidation in the bilateral lung bases, suggestingaspiration. 2. Moderate colonic stool burden with persistent mild distention and wall thickening of the rectal vault, suggesting chronic constipation and stercoral proctitis, although less pronounced from prior exam. 3. Multiple additional non-acute ancillary findings, as described above. Reading Location: [facility] Discharge Plan Dx/Rx/DC Orders Clinical Impression: Back muscle spasm, Acute UTI Disposition Disposition: Acute Care Hospital [facility] Discharge Date/Time: 03/22/25 00:22 What to do if you have Problems For any increased pain, shortness of breath, bleeding, nausea or vomiting, chestpain, or any unexpected problems, contact your Primary Care Provider. Call [facility] ([phone]) or report to the closest Emergency Room. Call 911 if necessary. 03/23/252211 <Electronically signed by Ethan Casanova> Cosigner Signature (if applicable): 03/21/25 2301 <Electronically signed by Noé Currie DO> CC: Dr. Ramone Smiley MD ~ Signed [facility] Work Phone: 1(128) 771-877607-24-2025 Progress note Author [facility] Note Date/Time March 23, 2025 1:37 pm [facility] Medical Records Department [address] [place] [address] Progress Note 03/23/25 1328 MR#: [id number] Acct: [id number] Name: OLGA DONALDSON Rep #:[id number] : 1945 80 From: Melba Hartmann MD PCP: Dr. Ramone Smiley MD Status:ADM IN Location: [facility] WU[facility]-6 Subjective Subjective Patient seen and examined with [...] 03/22/25 12:41 RMA (Rec: 03/22/25 12:41 RMA [id number]) Nutrition Malnutrition Evidence of Yes Malnutrition Exists [...] 76.1 H, Lymph % (Auto) 16.5 L, [place] % (Auto) 6.8, Eos % (Auto) 0.0, [...] prophylaxis: heparin. Charges/Coding Visit Charges Inpatient E&M: 49990 Subs Hosp L2 03/23/25 1338 <Electronically signed by Melba Hartmann MD> Melba Hartmann MD Cosigner Signature (if applicable): CC: ~ Signed [facility] Work Phone: 1(176) 940-757307-23-2025 Progress note Author [facility] Note Date/Time March 22, 2025 2:48 pm [facility] Medical Records Department [address] [place] [address] Progress Note 03/22/25 1428 MR#: [id number] Acct: [id number] Name: OLGA DONALDSON Rep #:[id number] : 1945 80 From: Melba Hartmann MD PCP: Dr. Ramone Smiley MD Status:ADM IN [facility] Subjective Subjective Patient seen and examined with [...] 03/22/25 12:41 RMA (Rec: 03/22/25 12:41 RMA [id number]) Nutrition Malnutrition Evidence of Yes Malnutrition Exists [...] Sl. Cloudy, Urine pH 7.0, Ur Specific [place] 1.010, Urine Protein 30 H, Urine Glucose [...] Neut % (Auto) 62.3, Lymph % (Auto) 27.1,[place] % (Auto) 8.6, Eos % (Auto) 0.8, [...] % (Auto) 65.3, Lymph % (Auto) 24.0, [place] % (Auto) 8.0, Eos % (Auto) 0.9, [...] in the abdominal CT report. Reading Location: [facility] Abdomen/Pelvis CT 03/21/25 18:02 IMPRESSION: 1. Similar patchy airspace consolidation in the bilateral lung bases, suggestingaspiration. 2. Moderate colonic stool burden with persistent mild distention and wall thickening of the rectal vault, suggesting chronic constipation and stercoral proctitis, although less pronounced from prior exam. 3. Multiple additional non-acute ancillary findings, as described above. Reading Location: [facility] Physical Exam Const alert, oriented x3 [...] prophylaxis: heparin. Charges/Coding Visit Charges Inpatient E&M: 57105 Subs Hosp L2 03/22/25 2758 <Electronically signed by Melba Hartmann MD> Melba Hartmann MD Cosigner Signature (if applicable): CC: ~ Signed [facility] Work Phone: 1(671) 496-629107-23-2025 History and physical note Author Abigail Foster [facility] Note Date/Time March 22, 2025 12:4 1am [facility] Medical Records Department [address] [place] [address] H&P Exam - Hospitalist 03/21/25 2248 MR#: [id number] Acct: [id number] Name: OLGA DONALDSON Rep #:[id number] : 1945 80 From: Abigail Foster MD PCP: Dr. Ramone Smiley MD Status:ADM IN [facility]: [facility] CV117-0 HPI - General General Date of Admission: [...] in remission who presents to the [facility] ED on 03/21/2025 with history of [...] 1, morphine 2 mg IV x 1, [id number] mg p.o. x 1. [facility] Medical History Former smoker On [...] Sl. Cloudy, Urine pH 7.0, Ur Specific [place] 1.010, Urine Protein 30 H, Urine Glucose [...] Neut % (Auto) 62.3, Lymph % (Auto) 27.1,[place] % (Auto) 8.6, Eos % (Auto) 0.8, [...] in the abdominal CT report. Reading Location: [facility] Abdomen/Pelvis CT 03/21/25 18:02 IMPRESSION: 1. Similar patchy airspace consolidation in the bilateral lung bases, suggestingaspiration. 2. Moderate colonic stool burden with persistent mild distention and wall thickening of the rectal vault, suggesting chronic constipation and stercoral proctitis, although less pronounced from prior exam. 3. Multiple additional non-acute ancillary findings, as described above. Reading Location: [facility] Assessment & Plan Assessment/Plan (1) Acute [...] in remission who presents to the [facility] ED on 03/21/2025 with history of [...] Time: 16minutes. Charges/Coding Visit Charges Inpatient E&M: 51621 Init Hosp L3 Procedures Hospitalists Procedures: 48354 Advncd Care Plan 30 Min 03/22/25 0041 <Electronically signed by Abigail oFster MD> Cosigner Signature (if applicable): CC: Dr. Abigail Foster MD; Dr. Ramone Smiley MD~ Signed [facility] Work Phone: 1(603) 667-922607-22-2025 Radiology Diagnostic study [facility]07-22-2025 Radiology Diagnostic study [facility]07-05-2025 Radiology Diagnostic study [facility] 03-04-2025 Discharge summary Author Jeevan Yoder [facility] Note Date/Time March 04, 2025 11:14 pm [facility] Medical Records Department [address] [place] [address] Emergency Department Summary 03/04/25 MR#: [id number] Acct: [id number] Name: OLGA DONALDSON Rep #:[id number] : 1945 80 From: Jeevan Yoder DO [...] Patient denies any history of kidney stones. [facility] Medical History History of [...] following commands knew that she was at [facility] year is 2024 Skin: Warm, dry, [...] % (Auto) 66.1 Lymph % (Auto) 24.2 [place] % (Auto) 6.9 Eos % (Auto) 1.7 [...] Clarity Cloudy Urine pH 7.0 Ur Specific [place] 1.010 Urine Protein 100 H Urine Glucose [...] aspiration pneumonia. 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 Reading Location: [place] [address] Discharge Plan Triage Chief Complaint: Serna C/O [...] other concerns or worsening symptoms Print Language: Portuguese Disposition Disposition: Home, Self Care What to do if you have Problems For any increased pain, shortness of breath, bleeding, nausea or vomiting, chestpain, or any unexpected problems, contact your Primary Care Provider. Call [facility] ([phone]) or report to the closest Emergency Room. Call 911 if necessary. 03/04/25 6983 <Electronically signed by Jeevan Yoder DO> Isrealigner Signature (if applicable): CC: Dr. Ramone Smiley MD ~ Signed [facility] Work Phone: 1([phone]) 608-672507-02-2025 Hospital Discharge instructionsAdditional Instructions Urine with signs of infection. You had infection a few weeks ago you self cath. Take finish antibiotic prescribed. Continue your Tylenol every 6 hours. Use Valium as needed. Follow-up with your doctor.[facility] Work Phone: 1(130) 705-470106-21-2025 Radiology Diagnostic study [facility]06-21-2025 Discharge summary Author Billy Kothari [facility] Note Date/Time February 19, 2025 12:0 5am [facility] Medical Records Department [address] [place] [address] Emergency Department Summary 02/18/25 MR#: [id number] Acct: [id number] Name: OLGA DONALDSON Rep #:[id number] : 1945 80 From: Billy Kothari MD PCP: Dr. Ramone Smiley MD Status:REG ER Location: ED HPI History of Present Illness Chief Complaint: Shortness of Breath Narrative Narrative: 80-year-old female past medical history of COPD, wears 2 to 3 L of oxygen, presents from correction facility with increasing shortness of breath. Sherelates history that she was admitted to the hospital for breathing difficulty and was released on Thursday. This is approximately 5 days ago. She is only at the correction facility temporarily. 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 She has been taking prednisone since discharge. She presents today with increasing shortness of breath and occasional cough. No fevers or chills. [facility] Medical History History of [...] hence, she was admitted then placed in correction facility. Says that she had history of [...] on steroids and nebulizer treatments at the correction facility. She is motivated for discharge. Disposition [...] 78.7 H Lymph % (Auto) 12.5 L [place] % (Auto) 6.7 Eos % (Auto) 1.0 [...] evaluation. No obvious acute finding. Reading Location: [facility] Discharge Plan Triage Chief Complaint: Shortness [...] wear your nasal cannula oxygen. Print Language: Portuguese Disposition Disposition: Home, Self Care What to do if you have Problems For any increased pain, shortness of breath, bleeding, nausea or vomiting, chestpain, or any unexpected problems, contact your Primary Care Provider. Call [facility] ([phone]) or report to the closest Emergency Room. Call 911 if necessary. 02/19/25 0005 <Electronically signed by Billy Kothari MD> Cosigner Signature (if applicable): CC: Dr. Ramone Smiley MD ~ Signed [facility] Work Phone: 1(767) 173-637806-20-2025 Discharge summary Author Heydi Amaya [facility] Note Date/Time February 17, 2025 5:15 pm [facility] Medical Records Department [address] [place] [address] Discharge Summary 02/17/25 1713 MR#: [id number] Acct: [id number] Name: ANIKAOLGA Rep #:[id number] : 1945 80 From: Heydi Amaya MD PCP: Dr. Ramone Smiley MD Status:ADM TED [facility] Prov[facility] Date of Admission: 02/15/25 Date of [...] COPD, hypertension, diabetes who presented to [facility] ED 02/16/2025 with shortness of breath [...] (Auto) 86.1 H, Lymph % (Auto) 7.8L, [place] % (Auto) 5.0, Eos % (Auto) 0.1, [...] in before D/C Order can be placed): Longterm Facility Charges/Coding Visit Charges Inpatient E&M: 06120 Disch Hosp 02/17/251714 <Electronically signed by Heydi Amaya MD> Cosigner Signature (if applicable): CC: Dr. Ramone Smiley MD; Dr. Heydi Amaya MD~ Signed [facility] Work Phone: 1(490) 381-623106-20-2025 Discharge summary Author Heydi Amaya [facility] Note Date/Time February 17, 2025 5:13 pm [facility] Medical Records Department [address] [place] [address] Transfer to [facility] Care MR#: [id number] Acct: [id number] Name: OLGA DONALDSON Rep #:[id number] : 1945 80 From: Heydi Amaya MD PCP: Dr. Ramone Smiley MD Status:ADM TED Certification of patient admission REQUIRED AT TIME OF ADMISSION. I CERTIFY THAT POST-HOSPITAL ECF SERVICES ARE REQUIRED TO BE GIVEN ON AN IN-PATIENT BASIS BECAUSE OF THE ABOVE NAMED PATIENT'S NEED FOR USP CARE ON A CONTINUING BASIS FOR THE CONDITION(S) FOR WHICH HE/SHE WAS RECEIVING IN-PATIENT HOSPITAL SERVICES PRIOR TO HIS/HER TRANSFER TO THE [facility]. 02/17/25 1713<Electronically signed by Heydi Amaya MD> [...] COPD, hypertension, diabetes who presented to [facility] ED 02/16/2025 with shortness of breath [...] in before D/C Order can be placed): Longterm Facility 02/17/25 1713 <Electronically signed by Heydi Amaya MD> Cosigner Signature (if applicable): CC: Dr. Nestor Bartlett DO; Dr. Ramone Smiley MD ~ [facility] Work Phone: 1(355) 178-325906-20-2025 [facility]06-19-2025 Progress note Author Heydi Amaya [facility] Note Date/Time February 16, 2025 4:45 pm [facility] Medical Records Department [address] [place] [address] Progress Note - Hospitalist 02/16/25 0829 MR#: [id number] Acct: [id number] Name: OLGA DONALDSON Rep #:[id number] : 1945 80 From: Heydi Amaya MD PCP: Dr. Ramone Smiley MD Status:ADM TED Location: DC3 FD782-0 Reason for Visit Reason for Visit: Diagnoses [...] 82.5 H, Lymph % (Auto) 10.9 L, [place] % (Auto) 4.8, Eos % (Auto) 0.7, [...] evidence of acute cardiopulmonary process. Reading Location: [facility] Physical Exam Narrative General: Alert, oriented, [...] COPD, hypertension, diabetes who presented to [facility] ED 02/16/2025 with shortness of breath [...] Amaya MD Charges/Coding Visit Charges Inpatient E&M: 15618 Subs Hosp L2 02/16/25 1645 <Electronically signed by Heydi Amaya MD> Cosigner Signature (if applicable): CC: ~ Signed [facility] Work Phone: 1(627) 209-360006-18-2025 Discharge summary Author Robert Allison [facility] Note Date/Time February 15, 2025 3:14 pm [facility] Medical Records Department [address] [place] [address] Emergency Department Summary 02/15/25 MR#: [id number] Acct: [id number] Name: OLGA DONALDSON Rep #:[id number] : 1945 80 From: Robert Allison DO PCP: Dr. Ramone Smiley MD Status:ADM TED Location: MS3 HH562-8 HPI History of Present Illness Chief Complaint: [...] a cough. Denies fever or chest pain. [facility] Medical History (Updated 02/15/25 [...] 0 01/15/25 Unknown History subcutaneous pen injector (Fitzuntirsharo) potassium chloride 20 mEq 20 meq PO [...] and faint expiratory wheezes. Mild tachypnea. No clip riveter muscles or retractions Effort and Inspection: Negative [...] chronically has this type of elevation. 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 hardboard factory worker saw patient and asked that we [...] 82.5 H Lymph % (Auto) 10.9 L [place] % (Auto) 4.8 Eos % (Auto) 0.7 [...] evidence of acute cardiopulmonary process. [facility] 1 view chest x-ray obtained interpreted [...] Care Provider] - 3-5 Days Print Language: Portuguese Disposition Disposition: Acute Care Hospital [facility] What to do if you have Problems For any increased pain, shortness of breath, bleeding, nausea or vomiting, chestpain, or any unexpected problems, contact your Primary Care Provider. Call [facility] ([phone]) or report to the closest Emergency Room. Call 911 if necessary. 02/15/25 9419 <Electronically signed by Remus Ungur DO> Cosigner Signature (if applicable): CC: Dr. Ramone Smiley MD ~ Signed [facility] Work Phone: 1(292) 680-876506-18-2025 History and physical note Author Nestor Bartlett [facility] Note Date/Time February 15, 2025 2:57 pm [facility] Medical Records Department [address] [place] [address] H&P Exam - Hospitalist 02/15/25 1401 MR#: [id number] Acct: [id number] Name: OLGA DONALDSON Rep #:[id number] : 1945 80 From: Nestor roman DO PCP: Dr. Ramone Smiley MD Status:ADM TED Location: [facility] TC697-0 HPI - General General Date of Admission: 02/15/25 Date of Service: 02/15/25 Chief Complaint: Shortness of breath, acute on chronic debility HPI Narrative OLGA DONALDSON, is a 80 F who presented to [facility] ED on 02/15/2025 with shortness of [...] currently. Will be admitted for further management. [facility] Medical History (Updated 02/15/25 @ [...] 82.5 H, Lymph % (Auto) 10.9 L, [place] % (Auto) 4.8, Eos % (Auto) 0.7, [...] evidence of acute cardiopulmonary process. Reading [facility] Assessment & Plan Assessment/Plan (1) Generalized weakness: PLAN: Plan Patient is an 80-year-old female who presented [facility] ED on 02/15/2025 with recurrent shortness [...] 75 minutes. Charges/Coding Visit Charges Inpatient E&M: 05897 Init Hosp L3 02/15/25 4493 <Electronically signed by Nestor Bartlett DO> Cosigner Signature (if applicable): CC: Dr. Nestor Bartlett DO; Dr. Ramone Smiley MD~ Signed [facility] Work Phone: 1(707) 479-348106-18-2025 Radiology Diagnostic study [facility]06-16-2025 Discharge summary Author Lucio Borden [facility] Note Date/Time February 13, 2025 2:22 pm [facility] Medical Records Department [address] [place] [address] Instructions for Home/Discharge Instructions 02/13/25 1415 MR#: [id number] Acct: [id number] Name: OLGA DONALDSON Rep #:[id number] : 1945 80 From: Lucio Borden DO [...] Dr. Ramone Smiley MD ~ Signed [facility] Work Phone: 1(703) 786-975206-16-2025 [facility]06-15-2025 Progress note Author Lucio Borden [facility] Note Date/Time February 12, 2025 11:2 5am [facility] Medical Records Department [address] [place] [address] Progress Note - Hospitalist 02/12/25 1123 MR#: [id number] Acct: [id number] Name: OLGA DONALDSON Rep #:[id number] : 1945 80 From: Lucio Borden DO PCP: Dr. Ramone Smiley MD Status:ADM IN Location: [place] 656213-1 Reason for Visit Reason for Visit: Diagnoses [...] 35- minutes Charges/Coding Visit Charges Inpatient E&M: 40296 Subs Hosp L2 02/12/25 1125 <Electronically signed by Lucio Borden DO> Cosigner Signature (if applicable): CC: ~ Signed [facility] Work Phone: 1(213) 163-788306-14-2025 Progress note Author Lucio Borden [facility] Note Date/Time February 11, 2025 4:29 pm [facility] Medical Records Department [address] [place] [address] Progress Note - Hospitalist 02/11/25 1621 MR#: [id number] Acct: [id number] Name: OLGA DONALDSON Rep #:[id number] : 1945 80 From: Lucio Borden DO PCP: Dr. Ramone Smiley MD Status:ADM IN Location: [place] [address] Reason for Visit Reason for Visit: Diagnoses [...] 35- minutes Charges/Coding Visit Charges Inpatient E&M: 68359 Subs Hosp L2 02/11/25 1629 <Electronically signed by Lucio Borden DO> Cosigner Signature (if applicable): CC: ~ Signed [facility] Work Phone: 1(235) 330-497506-13-2025 Progress note [facility] Note Date/Time February 10, 2025 5:29 pm [facility] Medical Records Department [address] [place] [address] Progress Note - Hospitalist 02/10/25 1720 MR#: [id number] Acct: [id number] Name: OLGA DONALDSON Rep #:[id number] : 1945 80 From: Lucio Borden DO PCP: Dr. Ramone Smiley MD Status:ADM [facility] Reason for Visit Reason for Visit: Diagnoses [...] 35- minutes Charges/Coding Visit Charges Inpatient E&M: 73886 Subs Hosp L2 02/10/25 1729 <Electronically signed by Lucio Borden DO> Cosigner Signature (if applicable): CC: ~ Signed [facility] Work Phone: 1(750) 508-384806-12-2025 History and physical note Author Tono Gomez [facility] Note Date/Time February 09, 2025 7:17 pm [facility] Medical Records Department [address] [place] [address] H&P Exam - Hospitalist 02/09/25 1525 MR#: [id number] Acct: [id number] Name: OLGA DONALDSON Rep #:[id number] : 1945 80 From: Tono BHATTI PCP: Dr. Ramone Smiley MD Status:ADM IN [facility] HPI - General General Date of Service: [...] tightness, no dizziness or lightheadedness, no palpitations. [facility] Medical History COPD with exacerbation [...] (Auto) 86.9 H, Lymph % (Auto) 7.3L, [place] % (Auto) 4.5, Eos % (Auto) 0.1, [...] degree of bibasilar linear atelectasis. Reading Location: [facility] Assessment & Plan Assessment/Plan (1) COPD exacerbation: [...] DAVY Dykes; Dr. Ramone Smiley MD; Dr. uLcio Borden DO~ Signed ADDENDUM by Dr. Lucio [...] assessment and findings. Visit Charges Inpatient E&M: 85150 Init Hosp L2 02/09/251916<Electronically signed by Lucio Tereletsky DO> Cosigner Signature (if applicable): cc: DAVY Dykes; Dr. Ramone Smiley MD; Dr. Lucio Borden, DO ~* Signed [facility] Work Phone: [phone] Discharge summary Author Jeremiah Corrales [facility] Note Date/Time February 09, 2025 2:57 pm [facility] Medical Records Department [address] [place] [address] Emergency Department Summary 02/09/25 MR#: [id number] Acct: [id number] Name: OLGA DONALDSON Rep #:[id number] : 1945 80 From: Jeremiah Corrales MD [...] 01/15/25 01/15/25 History 0.005 % eye drops ([place]) psyllium husk 0.4 gram capsule 0.4 g [...] 86.9 H Lymph % (Auto) 7.3 L [place] % (Auto) 4.5 Eos % (Auto) 0.1 [...] rhythm rate of 93 no acute signs [place] or ischemia. Patient does have inverted T waves in V4 5 and 6 slight change from prior EKG from February 04. Prior EKG tracings: available for review Prior: Changed Discharge Plan Dx/Rx/DC Orders Clinical Impression: Acute dyspnea, Elevated troponin, Hypoxia, COPD exacerbation, History of diabetes mellitus Disposition Disposition: [facility] What to do if you have Problems For any increased pain, shortness of breath, bleeding, nausea or vomiting, chestpain, or any unexpected problems, contact your Primary Care Provider. Call [email or web address] Registry ([phone]) or report to the closest Emergency Room. Call 911 if necessary. 02/09/25 5047 <Electronically signed by Jeremiah Corrales MD> Cosign Signature (if applicable): CC: Dr. Ramone Smiley MD ~ Signed [facility] Work Phone: 1(846) 917-628806-12-2025 Radiology Diagnostic study [facility]06-09-2025 Discharge summary Author [facility] Note Date/Time February 06, 2025 2:01p [facility] Medical Records Department [address] [place] [address] Instructions for Home/Discharge Instructions 02/06/25 1351 MR#: [id number] Acct: [id number] Name: OLGA DONALDSON Rep #:[id number] : 1945 80 From: Lucio Borden DO [...] Dr. Ramone Smiley MD ~ Signed [facility] Work Phone: [phone]) 112-706106-09-2025 [facility]06-08-2025 Progress note Author [facility] Note Date/Time February 05, 2025 2:48p m [facility] Medical Records Department [address] [place] [address] Progress Note - Hospitalist 02/05/25 1442 MR#: [id number] Acct: [id number] Name: OLGA DONALDSON Rep #:[id number] : 1945 80 From: Lucio Borden DO PCP: Dr. Ramone Smiley MD Status:ADM IN Location: [place] [address] Subjective Subjective Patient was seen and examined [...] not believe the patient has had an [place] #4 type 2 diabetes-blood sugars will be [...] 35 minutes Charges/Coding Visit Charges Inpatient E&M: 23398 Subs Hosp L2 02/05/25 1448 <Electronically signed by Lucio Borden DO> Cosigner Signature (if applicable): CC: ~ Signed [facility] Work Phone: [phone]) [phone] Discharge summary Author Aj Holley [facility] Note Date/Time February 04, 2025 10:27 am [facility] Medical Records Department [address] [place] [address] Emergency Department Summary 02/04/25 MR#: [id number] Acct: [id number] Name: OLGA DONALDSON Rep #:[id number] : 1945 80 From: Aj Holley MD [...] of the couch, and has no pain. [facility] Medical History Elevated troponin [...] 75.4 H Lymph % (Auto) 15.7 L [place] % (Auto) 6.6 Eos % (Auto) 1.7 [...] MD [Primary Care Provider] - Print Language: Portuguese What to do if you have Problems For any increased pain, shortness of breath, bleeding, nausea or vomiting, chestpain, or any unexpected problems, contact your Primary Care Provider. Call [facility] ([phone]) or report to the closest Emergency Room. [...] Dr. Ramone Smiley MD ~* Signed [facility] Work Phone: 1(930) 238-912706-07-2025 Radiology Diagnostic study [facility]06-07-2025 Radiology Diagnostic study [facility]05-29-2025 Radiology Diagnostic study [facility] 01-24-2025 [facility]05-26-2025 Progress note Author Becca Silverman [facility] Note Date/Time January 23, 2025 3:40p m [facility] Medical Records Department [address] [place] [address] Progress Note - Cardiology 01/23/25 1528 MR#: [id number] Acct: [id number] Name: OLGA DONALDSON Rep #:[id number] : 1945 80 From: Becca Silverman MD PCP: Dr. Ramone Smiley MD Status:ADM IN Location: [place] [address] Subjective Subjective Seen and evaluated at bedside [...] (Auto) 90.8 H, Lymph % (Auto) 6.2L, [place] % (Auto) 2.7, Eos % (Auto) 0.0, [...] (Auto)90.8 H, Lymph % (Auto) 6.2 L, [place] % (Auto) 2.7, Eos % (Auto) 0.0, [...] up an appointment to be seen by carpenter general as an outpatient and discussed further plan possible Lexiscan sestamibi and based on results of Lexiscan sestamibi to consider further evaluation. To minimize risk of contrast-induced nephropathy. Becca Silverman MD,[facility] 01/23/25 7180 <Electronically signed by Becca Silverman MD> Cosigner Signature (if applicable): CC: ~ Signed [facility] Work Phone: [phone]) [phone] Progress note Author Melba Hartmann [facility] Note Date/Time January 23, 2025 2:43p m [facility] Medical Records Department [address] [place] [address] Progress Note 01/23/25 1037 MR#: [id number] Acct: [id number] Name: OLGA DONALDSON Rep #:[id number] : 1945 80 From: Melba Hartmann MD PCP: Dr. Ramone Smiley MD Status:ADM IN Location: [place] [address] Subjective Subjective Patient seen and examined. She [...] (Auto) 90.8 H, Lymph % (Auto) 6.2L, [place] % (Auto) 2.7, Eos % (Auto) 0.0, [...] prophylaxis: Heparin Charges/Coding Visit Charges Inpatient E&M: 76066 Subs Hosp L2 01/23/25 1443 <Electronically signed by Melba Hartmann MD> Melba Hartmann MD Cosigner Signature (if applicable): CC: ~ Signed [facility] Work Phone: 1(330) 653-994305-25-2025 Progress note Author [facility] Note Date/Time January 22, 2025 2:00p m [facility] Medical Records Department [address] [place] [address] Progress Note 01/22/25 0949 MR#: [id number] Acct: [id number] Name: OLGA DONALDSON Rep #:[id number] : 1945 80 From: Melba Hartmann MD PCP: Dr. Ramone Smiley MD Status:ADM IN Location: [place] [id number]- 1 Subjective Subjective Patient seen and examined [...] 91.4 H, Lymph % (Auto) 5.7 L, [place] % (Auto) 2.4, Eos % (Auto) 0.0, [...] to PCU Charges/Coding Visit Charges Inpatient E&M: 04814 Subs Hosp L2 01/22/25 1242 <Electronically signed by Melba Hartmann MD> Melba Hartmann MD Cosigner Signature (if applicable): CC: ~ Signed ADDENDUM by Dr. Melba Hartmann MD on 01/22/25 at 1400 Addendum 1:30pm Patient's son Ursula Lees Jr called on the phone ([phone]) and updated about his mother's condition. 01/22/25 1400 <Electronically signed by Melba vivas MD> Date _ Melba Hartmann MD Cosigner Signature (if applicable): Date cc: ~* Signed [facility] Work Phone: 1(634) 898-475805-24-2025 Progress note Author [facility] Note Date/Time January 21, 2025 2:07p [facility] Medical Records Department [address] [place] [address] Progress Note 01/21/25 1039 MR#: [id number] Acct: [id number] Name: OLGA DONALDSON Rep #:[id number] : 1945 80 From: Melba Hartmann MD [...] 88.4 H, Lymph % (Auto) 7.7 L, [place] % (Auto) 3.5, Eos % (Auto) 0.0, [...] H, [place] 9.8, [place] [address] H 01/21/25 08:06: POC Glucose 202 H [...] Chest X-Ray 01/21/25 05:55 IMPRESSION: New appearing tqyc-tx-gwtrcdmf ill-defined perihilar opacity at the left upper [...] prophylaxis: Heparin Charges/Coding Visit Charges Inpatient E&M: 63522 Subs Hosp L2 01/21/25 1407 <Electronically signed by Melba Hartmann MD> Melba Hartmann MD Cosigner Signature (if applicable): CC: ~ Signed [facility] Work Phone: [phone] 128-691405-24-2025 Radiology Diagnostic study [facility]05-23-2025 Progress note Author Lucio Borden [facility] Note Date/Time January 20, 2025 4:58p m [facility] Medical Records Department [address] [place] [address] Progress Note - Hospitalist 01/20/25 1657 MR#: [id number] Acct: [id number] Name: OLGA DONALDSON Rep #:[id number] : 1945 80 From: Lucio Borden DO PCP: Dr. Ramone Smiley MD Status:ADM IN Location: [facility] OVD634- 1 Hospitalist Note Patient continues to have [...] Signature (if applicable): CC: ~ Signed [facility] Work Phone: [phone]) 422-406205-23-2025 Progress note Author [facility] Note Date/Time January 20, 2025 11:20 am [facility] Medical Records Department [address] [place] [address] Progress Note - Hospitalist 01/20/25 1119 MR#: [id number] Acct: [id number] Name: OLGA DONALDSON Rep #:[id number] : 1945 80 From: Lucio Borden DO PCP: Dr. Ramone Smiley MD Status:ADM IN Location: [place] [address] Hospitalist Note Patient was seen and examined today, made the decision to change the patient to Airvo, patient was admitted for suspected right lower lobe pneumonia and exacerbation of COPD, she remained on aerosol treatments, IV Solu-Medrol, and IVlevofloxacin. 01/20/25 1120 <Electronically signed by Lucio Borden DO> Cosigner Signature (if applicable): CC: ~ Signed [facility] Work Phone: [phone] 704-675705-23-2025 History and physical note Author Sandeep Marie [facility] Note Date/Time January 20, 2025 6:06a m [facility] Medical Records Department [address] [place] [address] H&P Exam - Hospitalist 01/20/25 0241 MR#: [id number] Acct: [id number] Name: OLGA DONALDSON Rep #:[id number] : 1945 80 From: Sandeep Dukes DO PCP: Dr. Ramone Smiley MD Status:ADM IN Location: [place] [address] HPI - General General Date of Admission: [...] of lumbar region who presents to [facility] complaining of shortness of breath. [...] to extend beyond 2 midnights. [facility] Medical History Fracture of hip, [...] Neut % (Auto) 58.4, Lymph % (Auto) 32.0,[place] % (Auto) 7.7, Eos % (Auto) 0.8, [...] Clarity Clear, Urine pH 6.0, Ur Specific [place] 1.010, Urine Protein 100 H, Urine Glucose [...] noted. Cardiomegaly. No pericardial effusion. Reading Location: [facility] Assessment & Plan Assessment/Plan (1) Pneumonia: QUALIFIERS: [...] twice daily. Give acetaminophen as needed for pcpr-tq-waxnebvb (level 1-5/10) pain or fever. Give morphine [...] responsive hypotension Charges/Coding Visit Charges Inpatient E&M: 34241 Init Hosp L3 01/20/25 0606 <Electronically signed by Sandeep Carlton DO> Cosigner Signature (if applicable): CC: Dr. Sandeep Carlton DO; Dr. Ramone Smiley MD~ Signed [facility] Work Phone: [phone]) 345-906105-23-2025 Evaluation note* Diagnosis Onset Date Resolution Status [...] 3:32am Hypertension chronic January 20 3:32am [facility] Work Phone: [phone] Evaluation note* Diagnosis Onset Date Resolution Status [...] mellitus chronic February 04, 2025 10:52am [facility] Work Phone: [phone] 340-300505-23-2025 Evaluation note* Diagnosis Onset Date Resolution Status [...] mellitus chronic February 04, 2025 10:52am [facility] Work Phone: [phone] Evaluation note* Diagnosis Onset Date Resolution Status [...] remov ed February 09, 2025 3:00pm [facility] Work Phone: [phone] Evaluation note* Diagnosis Onset Date Resolution Status [...] 20, 2025 3:32am Obesity (BMI 30.0-34.9) inactive [facility] 2024 3:32am Aortic stenosis acute January 31, 2025 1:42pm CHF (congestive heart failure) acute January 31, 2025 1:42pm Coronary artery disease acute 2024 1:42pm Hyperlipidemia chronic January 31, 2025 1:42pm Hypertension chronic January 31 1:42pm [employer] Work Phone: [phone] Evaluation note* Diagnosis Onset Date Resolution Status Admit Date Acute hypoxemic respiratory failure resolved January 20, 2025 3 :32am Acute hypoxic on chronic hypercapnic respiratory failure resolved January 20, 2025 3:32am CHF exacerbation resolved December 3:32am COPD exacerbation resolved December 3:32am Leukocytosis resolved January 20 3:32am Pneumonia resolved January 20, 2025 3:32am Aortic stenosis inactive January 20, 2025 3:32am Coronary artery disease inactive [facility] 2024 3:32am Elevated troponin inactive December 3:32am Hypertension inactive January 20 3:32am Lactic acidosis inactive January 20, 2025 3:32am Obesity (BMI 30.0-34.9) inactive [facility] 2024 3:32am Aortic stenosis inactive January [...] remov ed February 09, 2025 3:00pm [facility] Work Phone: [phone] Evaluation note* Diagnosis Onset Date Resolution Status [...] weakness inactive February 15, 2025 2:01pm [facility] Work Phone: [phone] 469-960005-23-2025 Evaluation note* Diagnosis Onset Date Resolution Status [...] weakness inactive February 15, 2025 2:01pm [facility] Work Phone: [phone]) 573-628105-23-2025 Evaluation note* Diagnosis Onset Date Resolution Status [...] muscle spasm acute March 212024 11:03pm [facility] Work Phone: [phone]) 254-459305-23-2025 Evaluation note* Diagnosis Onset Date Resolution Status Admit Date Acute hypoxemic respiratory failure resolved January 20, 2025 3 :32am Acute hypoxic on chronic hypercapnic respiratory failure resolved January 20, 2025 3:32am CHF exacerbation resolved December 3:32am COPD exacerbation resolved December 3:32am Leukocytosis resolved January 20 3:32am Pneumonia resolved January 20, 2025 3:32am Aortic stenosis inactive January 20, 2025 3:32am Coronary artery disease inactive [facility] 2024 3:32am Elevated troponin inactive December 3:32am Hypertension inactive January 20 3:32am Lactic acidosis inactive January 20, 2025 3:32am Obesity (BMI 30.0-34.9) inactive [facility] 2024 3:32am Aortic stenosis inactive January [...] COPD exacerbation chronic March 212024 11:03pm [facility] Work Phone: [phone] Evaluation note* Diagnosis Onset Date Resolution Status [...] acute April 022024 4:28am Neurogenic bladder acute [place] 3rd, 2025 4:28am Obesity (BMI 30.0-34.9) acute A ug2024 4:28am Pneumonia acute April 02 4:28am COPD exacerbation chronic April 02, 2025 4:28am [facility] Work Phone: [phone] 666-758605-23-2025 Discharge summary Author Jeevan Yoder [facility] Note Date/Time January 20, 2025 2:43a m [facility] Medical Records Department [address] [place] [address] Emergency Department Summary 01/20/25 MR#: [id number] Acct: [id number] Name: OLGA DONALDSON Rep #:[id number] : 1945 80 From: Jeevan Yoder DO [...] has had progressive worsening shortness of breath. [facility] Medical History Fracture of [...] % (Auto) 58.4 Lymph % (Auto) 32.0 [place] % (Auto) 7.7 Eos % (Auto) 0.8 [...] Clarity Clear Urine pH 6.0 Ur Specific [place] 1.010 Urine Protein 100 H Urine Glucose [...] noted. Cardiomegaly. No pericardial effusion. Reading Location: [facility] Discharge Plan Triage Chief Complaint: Shortness of [...] MD [Primary Care Provider] - Print Language: Portuguese What to do if you have Problems For any increased pain, shortness of breath, bleeding, nausea or vomiting, chestpain, or any unexpected problems, contact your Primary Care Provider. Call [facility] ([phone]) or report to the closest Emergency Room. Call 911 if necessary. 01/20/25 0236 <Electronically signed by Jeevan Yoder DO> Cosigner Signature (if applicable): CC: Dr. Ramone Smiley MD ~ Signed [facility] Work Phone: [phone] Radiology Diagnostic study [facility]05-18-2025 Discharge summary [facility] Medical Records Department [address] [place] [address] Emergency Department Summary 01/15/25 MR#: [id number] Acct: [id number] Name: OLGA DONALDSON Rep #:[id number] : 1945 80 From: Jeevan Yoder DO [...] of the antibiotic that was placed on. [facility] Medical History Fracture of [...] follow commands and that she was at [facility] the year is 2024 Skin: Warm, [...] 72.7 H Lymph % (Auto) 18.1 L [place] % (Auto) 6.9 Eos % (Auto) 1.6 [...] IMPRESSION: Cardiomegaly with mild congestion. Reading Location: [facility] Discharge Plan Triage Chief Complaint: Shortness [...] with worsening symptoms or concerns. Print Language: Portuguese Disposition Disposition: Home, Self Care What to do if you have Problems For any increased pain, shortness of breath, bleeding, nausea or vomiting, chestpain, or any unexpected problems, contact your Primary Care Provider. Call [facility] ([phone]) or report tothe closest Emergency Room. Call 911 if necessary. 01/15/25 1845 Cosigner Signature (if applicable): CC: Dr. Ramone Smiley MD ~ Signed [facility]-2025 Radiology Diagnostic study note [facility] Imaging Services [address] [place], [place] [address] Chest PA and Lateral MR#: [id number] Acct: [id number] Name: OLGA DONALDSON Rep #: [id number] : 1945 F 80 From: Kary Suarez MD PCP: Dr. Ramone Smiley MD Status: REG ER Study:Chest PA and Lateral Date of Exam: 01/15/25 Exam# [id number] Ordering Dr: Yoly Yoder DO EXAM: XR Chest, 2 Views CLINICAL INDICATION: CHEST PAIN TECHNIQUE: Frontal and lateral views of the chest. COMPARISON: No relevant prior studies available. FINDINGS: LUNGS AND PLEURAL SPACES: See below. HEART: Cardiomegaly with mild congestion. MEDIASTINUM: Unremarkable. Normal mediastinal contour. BONES/JOINTS: Unremarkable. No acute fracture. RAD/Chest PA and Lateral IMPRESSION: Cardiomegaly with mild congestion. Reading Location: [facility] CC: Dr. Ramone Smiley MD; Dr. Jeevan Yoder DO ~ Fire Equipment Operator: Signed [facility]-18-2025 Discharge summary Author Jeevan Yoder [facility] Note Date/Time January 15, 2025 6:45p m [facility] Medical Records Department [address] [place] [address] Emergency Department Summary 01/15/25 MR#: [id number] Acct: [id number] Name: OLGA DONALDSON Rep #:[id number] : 1945 80 From: Jeevan Yoder DO [...] of the antibiotic that was placed on. [facility] Medical History Fracture of [...] follow commands and that she was at [facility] the year is 2024 Skin: Warm, [...] 72.7 H Lymph % (Auto) 18.1 L [place] % (Auto) 6.9 Eos % (Auto) 1.6 [...] IMPRESSION: Cardiomegaly with mild congestion. Reading Location: [facility] Discharge Plan Triage Chief Complaint: Shortness of [...] with worsening symptoms or concerns. Print Language: Portuguese Disposition Disposition: Home, Self Care What to do if you have Problems For any increased pain, shortness of breath, bleeding, nausea or vomiting, chestpain, or any unexpected problems, contact your Primary Care Provider. Call [email or web address] [facility] ([phone]) or report to the closest Emergency Room. Call 911 if necessary. 01/15/25 1550 <Electronically signed by Jeevan Yoder DO> Cosigner Signature (if applicable): CC: Dr. Ramone Smiley MD ~ Signed [facility] Work Phone: [phone]) 493-994005-10-2025 Discharge summary [facility] Medical Records Department [address] [place] [address] Emergency Department Summary 01/07/25 MR#: [id number] Acct: [id number] Name: OLGA DONALDSON Rep #:[id number] : 1945 80 From: Ethan Casanova PCP: [...] clinician: N/A This note was generated with Chroma dictation software. It may contain incorrectwords, spelling, [...] % (Auto) 58.0 Lymph % (Auto) 31.8 [place] % (Auto) 7.6 Eos % (Auto) 1.9 [...] Cardiomegaly without overt failure. Reading Location: [facility] Discharge Plan Triage Chief Complaint: [...] steroids is tomorrow. This was sent to [employer] [employer]. Print Language: Portuguese Disposition Disposition: Home, Self Care What to do if you have Problems For any increased pain, shortness of breath, bleeding, nausea or vomiting, chestpain, or any unexpected problems, contact your Primary Care Provider. Call [facility] ([phone]) or report tothe closest Emergency Room. Call 911 if necessary. 01/07/25 1700 Cosigner Signature (if applicable): CC: Dr. Ramone Smiley MD ~ Signed [facility]-10-2025 Radiology Diagnostic study note [facility] Imaging Services [address] [place] [address] Chest PA and Lateral MR#: [id number] Acct: [id number] Name: OLGA DONALDSON Rep #: [id number] : 1945 F 80 From: Kary Suarez MD PCP: Dr. Ramone Smiley MD Status: PRE ER Study:Chest PA and Lateral Date of Exam: 01/07/25 Exam# [id number] Ordering Dr: Ethan Suarez DO EXAM: XR Chest, 2 Views CLINICAL INDICATION: COUGH TECHNIQUE: Frontal and lateral views of the chest. COMPARISON: No relevant prior studies available. FINDINGS: LUNGS AND PLEURAL SPACES: Unremarkable. No consolidation. No pneumothorax. HEART: Cardiomegaly without overt failure. MEDIASTINUM: Unremarkable. Normal mediastinal contour. BONES/JOINTS: Unremarkable. No acute fracture. RAD/Chest PA and Lateral IMPRESSION: Cardiomegaly without overt failure. Reading Location: [facility] CC: Dr. Ramone Smiley MD; Dr. Ethan Suarez DO ~ Fire Equipment Operator: Signed [facility]05-10-2025 Discharge summary Author Ethan Suarez [facility] Note Date/Time January 07, 2025 5:00p m [facility] Medical Records Department [address] [place] [address] Emergency Department Summary 01/07/25 MR#: [id number] Acct: [id number] Name: OLGA DONALDSON Rep #:[id number] : 1945 80 From: Ethan Casanova PCP: [...] clinician: N/A This note was generated with Chroma dictation software. It may contain incorrectwords, spelling, [...] % (Auto) 58.0 Lymph % (Auto) 31.8 [place] % (Auto) 7.6 Eos % (Auto) 1.9 [...] IMPRESSION: Cardiomegaly without overt failure. Reading Location: [facility] Discharge Plan Triage Chief Complaint: Shortness [...] steroids is tomorrow. This was sent to [employer]. Print Language: Portuguese Disposition Disposition: Home, Self Care What to do if you have Problems For any increased pain, shortness of breath, bleeding, nausea or vomiting, chestpain, or any unexpected problems, contact your Primary Care Provider. Call [facility] ([phone]) or report to the closest Emergency Room. Call 911 if necessary. 01/07/25 1700 <Electronically signed by Ethan Casanova> Cosigner Signature (if applicable): CC: Dr. Ramone Smiley MD ~ Signed [facility] Work Phone: 1(822) 527-139605-01-2024 Progress note Author Sunnycourtney Bell [facility] December 30, 2023 12:34pm Note Date/Time December 30, 2023 12:35p [facility] Medical Records Department [address] [place] [address] Progress Note - Hospitalist 12/30/23 1228 MR#: [id number] Acct: [id number] Name: OLGA DONALDSON Rep #:[id number] : 1945 78 From: Snuny Blue PCP: Dr. Ramone Smiley MD Status:ADM IN [facility] Reason for Visit Reason for Visit: Diagnoses [...] % (Auto) 63.9, Lymph % (Auto) 25.3, [place] % (Auto) 8.7, Eos % (Auto) 1.4, [...] is a 78-year-old female who presented [facility] ED on 12/27/2023 with left hip [...] cousin over the phone who lives in [place]. Patient is clinically doing well. Currently [...] disposition: TBD Charges/Coding Visit Charges Inpatient E&M: 49401 Subs Hosp L2 12/30/23 1234 <Electronically signed by Sunny Bell MD> Cosigner Signature (if applicable): CC: ~ Signed [facility] Work Phone: 1(882) 822-682804-30-2024 Progress note Author Sunny Bell [facility] December 29, 2023 12:47pm Note Date/Time December 29, 2023 9:3 0am [facility] Medical Records Department [address] [facility] [place] [address] Progress Note - Hospitalist 12/29/23928 MR#: [id number] Acct: [id number] Name: OLGA DONALDSON Rep #:[id number] : 1945 78 From: Sunny Blue PCP: Dr. Ramone Smiley MD Status:ADM IN [facility] Reason for Visit Reason for Visit: Diagnoses [...] (Auto) 81.1 H, Lymph %(Auto) 9.5 L, [place] % (Auto) 8.5, Eos % (Auto) 0.1, [...] pelvis radiograph of 12/19/2023. Electronically Signed: Billy hSirley MD at 14:25 EDT , Hip X-Ray [...] is a 78-year-old female who presented [facility] ED on 12/27/2023 with left hip [...] cousin over the phone who lives in [place]. Patient is clinically doing well. Currently [...] disposition: TBD Charges/Coding Visit Charges Inpatient E&M: 80338 Subs Hosp L2 12/29/23 8933 <Electronically signed by Sunny Bell MD> Cosigner Signature (if applicable): CC: ~ Signed [facility] Work Phone: 1(364) 117-477404-30-2024 Progress note Author Sj Patelkory [facility] December 29, 2023 11:56am Note Date/Time December 29, 2023 11: 56am [facility] Medical Records Department [address] [place] [address] Progress Note - Orthopedic 12/29/23 1152 MR#: [id number] Acct: [id number] Name: OLGA DONALDSON Rep #:[id number] : 1945 78 From: Sj BHATTI PA-C PCP: Dr. Ramone Smiley MD Status:ADM IN Location: DC3 IJ895-7 Subjective Subjective Patient sitting at bedside watching [...] (Auto) 81.1 H, Lymph %(Auto) 9.5 L, [place] % (Auto) 8.5, Eos % (Auto) 0.1, [...] 14:25 EDT Reading Location ID and State: [facility] / [place] , Service support , Hip [...] Signature (if applicable): CC: ~ Signed [facility] Work Phone: 1(199) 437-464004-29-2024 Consult note Author Gabriel Rochelle [facility] December 28, 2023 12:59pm Note Date/Time December 28, 2023 12: 59pm [facility] Medical Records Department [address] [place] [address] Consultation - Orthopedics 12/28/23 1252 MR#: [id number] Acct: [id number] Name: OLGA DONALDSON Rep #:[id number] : 1945 78 From: Gabriel Blue PCP: Dr. Ramone Smiley MD Status:ADM IN [facility] WM553-9 HPI Consult Data Date of Consult: 12/28/23 [...] any previous DVTs or PEs. [facility] Medical History Anemia Anxiety Aortic [...] mg chewable tablet 81 mg PO DAILY [facility] 01/21/16 [History Last Taken 08/12/23] albuterol sulfate [...] % (Auto) 51.7, Lymph % (Auto) 37.1, [place] % (Auto) 6.6, Eos % (Auto) 3.1, [...] CC: Dr. Ramone Smiley MD~ Signed [facility] Work Phone: 1(390) 244-423704-29-2024 Procedure [facility] 12-28-2023 Progress note Author Sunny Bell [facility] December 28, 2023 11:23am Note Date/Time December 28, 2023 9:5 2am [facility] Medical Records Department [address] [place] [address] Progress Note - Hospitalist 12/28/23 0949 MR#: [id number] Acct: [id number] Name: ANIKAPATRICK BARILLASCA Rep #:[id number] : 1945 78 From: Sunny Blue PCP: Dr. Ramone Smiley MD Status:ADM IN Location: MS3 FK482-1 Reason for Visit Reason for Visit: Diagnoses [...] % (Auto) 51.7, Lymph % (Auto) 37.1, [place] % (Auto) 6.6, Eos % (Auto) 3.1, [...] 23:29 EDT Reading Location ID and State: [id number] / [employer] , Service support , Hip/Pelvis X-Ray [...] is a 78-year-old female who presented [facility] ED on 12/27/2023 with left hip [...] disposition: TBD Charges/Coding Visit Charges Inpatient E&M: 85141 Subs Hosp L2 12/28/23 1123 <Electronically signed by Sunny Bell MD> Cosigner Signature (if applicable): CC: ~ Signed [facility] Work Phone: 1(946) 631-911604-29-2024 History and physical note Author Nestor Bartlett [facility] December 28, 2023 4:47am Note Date/Time December 27, 2023 11: 30pm [facility] Medical Records Department [address] [place] [address] H&P Exam - Hospitalist 12/27/23 2330 MR#: [id number] Acct: [id number] Name: OLGA DONALDSON Rep #:[id number] : 1945 78 From: Nestor roman DO PCP: Dr. Ramone Smiley MD Status:ADM IN [facility]: [facility] VG636-3 HPI - General General Date of Admission: 12/27/23 Date of Service: 12/27/23 Chief Complaint: Left hip fracture HPI Narrative OLGA DONALDSON, is a 78 F who presented to [facility] ED on 12/27/2023 with left hip [...] be admitted for further management. [facility] Medical History Anemia Anxiety Aortic [...] % (Auto) 51.7, Lymph % (Auto) 37.1, [place] % (Auto) 6.6, Eos % (Auto) 3.1, [...] is a 78-year-old female who presented [facility] ED on 12/27/2023 with left hip [...] 75 minutes. Charges/Coding Visit Charges Inpatient E&M: 05428 Init Hosp L3 12/28/23 0447 <Electronically signed by Nestor Bartlett DO> Cosigner Signature (if applicable): CC: Dr. Nestor Bartlett DO; Dr. Ramone Smiley MD~ Signed [facility] Work Phone: 1([phone]) 244-657504-29-2024 Discharge summary Author Queta Cortez [facility] December 28, 2023 2:33am Note Date/Time December 27, 2023 10: 23pm [facility] Medical Records Department [address] [place] [address] Emergency Department Summary 12/27/23 MR#: [id number] Acct: [id number] Name: OLGA DONALDSON Rep #:[id number] : 1945 78 From: Queta Cortez MD PCP: Dr. Ramone Smiley MD Status:ADM IN Location: [place] [address] HPI HPI - Fall History of Present [...] aspirin but no other form of anticoagulant. [facility] Medical History Anemia Anxiety [...] Medical decision making narrative: Patient placed on converting operator. Patient given morphine and Zofran for [...] % (Auto) 51.7 Lymph % (Auto) 37.1 [place] % (Auto) 6.6 Eos % (Auto) 3.1 [...] group home. Dr. Byrd is on-call for [facility] and I will [facility] with [facility] and need for surgical repair. Discharge Plan Dx/Rx/DC Orders Clinical Impression: Fracture of hip, left, closed Disposition Disposition: Acute Care Hospital [facility] What to do if you have Problems For any increased pain, shortness of breath, bleeding, nausea or vomiting, chestpain, or any unexpected problems, contact your Primary Care Provider. Call [email or web address] [facility] ([phone]) or report to the closest Emergency Room. Call 911 if necessary. 12/28/23 0233 <Electronically signed by Queta Cortez MD> Cosigner Signature (if applicable): CC: Dr. Ramone Smiley MD ~ Signed [facility] Work Phone: 1(856) 487-390012-18-2023 Consult note Author Derrick Hallman [facility] August 17, 2023 11:38am Note Date/Time August 17, 2023 11:38am [facility] Medical Records Department [address] [place] [address] Counseling Note - Pharmacy 08/17/23 1137 MR#: [id number] Acct: [id number] Name: OLGA DONALDSON Rep #:[id number] : 1945 78 From: Derrick Hallman PCP: Dr. Ramone Smiley MD Status:ADM IN Y Location: [place] [address] Pharmacy [facility] Service has performed [...] mg chewable tablet 81 mg PO DAILY [facility] 01/21/16 albuterol sulfate 90 mcg/actuation aerosol inhaler [...] (if applicable): Date CC: ~ Signed [facility] Work Phone: 1([phone]) 667-630312-18-2023 Discharge summary Author Sandeep Denson [facility] August 17, 2023 11:20am Note Date/Time August 17, 2023 11:12am [facility] Medical Records Department [address] [place] [address] Discharge Summary 08/17/23 1111 MR#: [id number] Acct: [id number] Name: OLGA DONALDSON Rep #:[id number] : 1945 78 From: Sandeep Denson MD PCP: Dr. Ramone Smiley MD Status:ADM IN Location: [place] [address] Providers Date of Admission: 08/13/23 Date of [...] 81 mg PO DAILY [facility] 01/21/16 albuterol sulfate 90 [...] Requested for PT OT eval and social sciences professor to assist with discharge planning 4. Diabetes [...] 08/14/23 13:49 AG (Rec: 08/14/23 13:49 AG [id number]) Nutrition Malnutrition Evidence of Malnutrition Exists Yes [...] Right Blood Culture - Final GNR lactose fashion photographer 08/13/23 11:10 Blood Culture (Wb) - Anticubital [...] Anne Marie Marshall MD [Med Staff - Guest Room Inspector] - 08/25/23 10:30 am Disposition Disposition (needs filled in before D/C Order can be placed): Home, Self Care Charges/Coding Visit Charges Inpatient E&M: 17759 Disch Hosp >30min 08/17/23 1120 <Electronically signed by Sandeep Denson MD> Cosigner Signature (if applicable): CC: Dr. Sandeep Denson MD; Dr. Ramone Smiley MD~ Signed [facility] Work Phone: [phone]) 337-712712-17-2023 Progress note Author Nestor Bartlett [facility] August 16, 2023 1:08pm Note Date/Time August 16, 2023 1:08pm [facility] Medical Records Department [address] [place] [address] Progress Note - Hospitalist 08/16/23 1300 MR#: [id number] Acct: [id number] Name: OLGA DONALDSON Rep #:[id number] : 1945 78 From: Nestor roman DO PCP: Dr. Ramone Smiley MD Status:ADM IN Location: [place] [address] Reason for Visit Reason for Visit: Diagnoses [...] Document 08/14/23 13:49 AG (Rec: 08/14/23 13:49 [id number]) Nutrition Malnutrition Evidence of Malnutrition Exists Yes [...] Right Blood Culture - Final GNR lactose fashion photographer 08/13/23 11:10 Blood Culture (Wb) - Anticubital [...] a 78-year-old female who presented to [facility] ED on 08/13/2023 with increasing generalized [...] 35 minutes. Charges/Coding Visit Charges Inpatient E&M: 91621 Subs Hosp L2 08/16/23 1308 <Electronically signed by Nestor Bartlett DO> Cosigner Signature (if applicable): CC: ~ Signed [facility] Work Phone: 1(432) 909-806212-16-2023 Progress note Author Nestor [facility] August 15, 2023 1:28pm Note Date/Time August 15, 2023 1:24pm [facility] Medical Records Department [address] [place] [address] Progress Note - Hospitalist 08/15/23 1317 MR#: [id number] Acct: [id number] Name: OLGA DONALDSON Rep #:[id number] : 1945 78 From: Nestor roman DO PCP: Dr. Ramone Smiley MD Status:ADM IN Location: [place] [address] Reason for Visit Reason for Visit: Diagnoses [...] 08/14/23 13:49 AG (Rec: 08/14/23 13:49 AG [id number]) Nutrition Malnutrition Evidence of Malnutrition Exists Yes [...] Right Blood Culture - Preliminary GNR lactose fashion photographer 08/13/23 11:00 Nasal Secretion SARS-CoV-2 & FLU [...] a 78-year-old female who presented to [facility] ED on 08/13/2023 with increasing generalized [...] cultures preliminarily positive for gram-negative wes lactose fashion photographer, follow-up speciation and sensitivities. 3. LIA, resolved [...] 35 minutes. Charges/Coding Visit Charges Inpatient E&M: 62001 Subs Hosp L2 08/15/23 1328 <Electronically signed by Nestor Bartlett DO> Cosigner Signature (if applicable): CC: ~ Signed [facility] Work Phone: [phone]) 145-237912-15-2023 Progress note Author [facility] August 14, 2023 3:08pm Note Date/Time August 14, 2023 2:58pm [facility] Medical Records Department [address] [place] [address] Progress Note - Hospitalist 08/14/23 1454 MR#: [id number] Acct: [id number] Name: OLGA DONALDSON Rep #:[id number] : 1945 78 From: Nestor roman DO PCP: Dr. Ramone Smiley MD Status:ADM IN Location: [place] [address] Reason for Visit Reason for Visit: Diagnoses [...] 08/14/23 13:49 AG (Rec: 08/14/23 13:49 AG [id number]) Nutrition Malnutrition Evidence of Malnutrition Exists Yes [...] (Auto) 79.7 H, Lymph% (Auto) 11.1 L, [place] % (Auto) 6.1, Eos % (Auto) 0.6, [...] Catheterized Urine Culture - Preliminary GNR lactose fashion photographer 08/13/23 12:05 Blood Culture (Wb) - Anticubital Right Blood Culture - Preliminary GNR lactose fashion photographer 08/13/23 11:10 Blood Culture (Wb) - Anticubital Right Blood Culture - Preliminary GNR lactose fashion photographer 08/13/23 11:00 Nasal Secretion SARS-CoV-2 & FLU [...] a 78-year-old female who presented to [facility] ED on 08/13/2023 with increasing generalized [...] cultures preliminarily positive for gram-negative wes lactose fashion photographer, follow-up speciation and sensitivities. 3. LIA, resolved [...] 35 minutes. Charges/Coding Visit Charges Inpatient E&M: 47134 Subs Hosp L2 08/14/23 1508 <Electronically signed by Nestor Bartlett DO> Cosigner Signature (if applicable): CC: ~ Signed [facility] Work Phone: 1(953) 992-860412-14-2023 Discharge summary Author Robert Allison [facility] August 13, 2023 3:29pm Note Date/Time August 13, 2023 10:40am [facility] Medical Records Department [address] [place] [address] Emergency Department Summary 08/13/23 MR#: [id number] Acct: [id number] Name: OLGA DONALDSON Rep #:[id number] : 1945 78 From: Robert Allison DO PCP: Dr. Ramone Smiley MD Status:ADM IN Location: [place] [address] HPI History of Present Illness Chief Complaint: [...] She denies chest pain. She self caths. [facility] Medical History Anemia Anxiety [...] mg chewable tablet 81 mg PO DAILY [facility] 01/21/16 [History Last Taken 08/12/23] albuterol sulfate [...] 82.7 H Lymph % (Auto) 9.4 L [place] % (Auto) 6.1 Eos % (Auto) 0.1 [...] Sl. Cloudy Urine pH 5.0 Ur Specific [place] 1.015 Urine Protein 30 H Urine Glucose [...] Acute hyponatremia Disposition Disposition: Acute Care Hospital [facility] Discharge Date/Time: 08/13/23 14:54 What to do if you have Problems For any increased pain, shortness of breath, bleeding, nausea or vomiting, chestpain, or any unexpected problems, contact your Primary Care Provider. Call [facility] ([phone]) or report to the closest Emergency Room. Call 911 if necessary. 08/13/23 1529 <Electronically signed by Robert Allison DO> Cosigner Signature (if applicable): CC: Dr. Ramone Smiley MD ~ Signed [facility] Work Phone: [phone]) 625-255812-14-2023 History and physical note Author Heydi Amaya [facility] August 13, 2023 2:47pm Note Date/Time August 13, 2023 2:33pm [facility] Medical Records Department [address] [place] [address] H&P Exam - Hospitalist 08/13/23 1431 MR#: [id number] Acct: [id number] Name: OLGA DONALDSON Rep #:[id number] : 1945 78 From: Heydi Amaya MD PCP: Dr. Ramone Smiley MD Status:ADM IN Location: [facility] QAS623- 1 HPI - General General Date of Admission: 08/13/23 Date of Service: 08/13/23 Chief Complaint: Increasing weakness HPI Narrative OLGA DONALDSON, is [id number] female history of GERD, COPD, hypertension, diabetes, chronic urinary retention with self cathing presented [facility] 08/13/2023 with increasing generalized weakness and [...] acute complaints at this time. [facility] Medical History Anemia Anxiety Aortic [...] 81 mg PO DAILY [facility] 01/21/16 [History Last Taken [...] (Auto) 82.7 H, Lymph% (Auto) 9.4 L, [place] % (Auto) 6.1, Eos % (Auto) 0.1, [...] Sl. Cloudy, Urine pH 5.0, Ur Specific [place] 1.015, Urine Protein 30 H, Urine Glucose [...] Amaya MD Charges/Coding Visit Charges Inpatient E&M: 04311 Init Hosp L2 08/13/23 1447 <Electronically signed by Heydi Amaya MD> Cosigner Signature (if applicable): CC: Dr. Ramone Smiley MD; Dr. Heydi Amaya MD~ Signed [facility] Work Phone: [phone]) [phone] Lockwood [facility] January 28, 2023 4:30pm Note Date/Time January 28, 2023 3:17p m [facility] Medical Records Department [address] [place] [address] Emergency Department Summary 01/28/23 MR#: [id number] Acct: [id number] Name: OLGA DONALDSON Rep #:[id number] : 1945 78 From: Joseph Lockwood MD [...] pain which she has every single day. [facility] Medical History Anemia Anxiety [...] unit/mL subcutaneous solution 22 unit SQ BID hshqtbaj17/03/20 [History Last Taken Unknown] insulin detemir U-100 [...] % (Auto) 56.6 Lymph % (Auto) 34.2 [place] % (Auto) 5.6 Eos % (Auto) 2.6 [...] UNIT/ML solution 22 unit SQ BIDCM vitamin S-cxqqsswmptft-nqqsqhd 500 MG tablet,chewable 250 mg PO DAILY Primary Care Provider: Ramone Smiley Referrals: Ramone Smiley MD [Primary Care Provider] - 3-5 Days Disposition Disposition: Home, Self Care What to do if you have Problems For any increased pain, shortness of breath, bleeding, nausea or vomiting, chestpain, or any unexpected problems, contact your Primary Care Provider. Call [facility] ([phone]) or report to the closest Emergency Room. Call 911 if necessary. 01/28/23 1630 <Electronically signed by Joseph Lockwood MD> Cosigner Signature (if applicable): CC: Dr. Ramone Smiley MD ~ Signed [facility] Work Phone: [phone]) 128-190809-07-2022 NoteHNO ID: [id number] Author: 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 APRN.POLISHING WHEEL SETTER Service: ? Author Type: Nurse Practitioner Type: [...] an every 2-week basis for 4 cycles (CALGB-17308). Completed a year of trastuzumab 06/16/06. Referred back or anemia. Admitted to [facility] 12/02/2019 for chest pain with ambulation. [...] 1.00 - 4.00 k/uL 2.70 2.30 2.03 [place]% % 7.0 6.6 6.9 Abs [place] <0.87 k/uL 0.49 0.47 0.47 Eosin% % [...] loss - ICD9: 280.0, (more content not included)...[facility]09-07-2022 History of Present illness Narrative* 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, SPLICING MACHINE OPERATOR AUTOMATIC.POLISHING WHEEL SETTER - 05/07/2022 1:33 PM EDT Chief Complaint [...] an every 2-week basis for 4 cycles (CALGB-45202). Completed a year of trastuzumab 06/16/06. Referred back or anemia. Admitted to [facility] 12/02/2019 for chest pain with ambulation. [...] 1.00 - 4.00 k/uL 2.70 2.30 2.03 [place]% % 7.0 6.6 6.9 Abs [place] <0.87 k/uL 0.49 0.47 0.47 Eosin% % [...] visit. 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 APRN.MARLI documented in this encounterBet[facility]06-13-2022 Miscellaneous Notes* Telephone Encounter - Stacie Varner LPN - 02/10/2022 8:33 AM EDT Pt called and notified, pt voices understanding. Stacie Varner LPN * Telephone Encounter - Joseph Rolle DO - 02/10/2022 6:20 AM EDT Can let her know CBC and iron levels doing well. Follow up as scheduled. Joseph Rolle DO documented in this encounterBethesda North Hospital01-31-2022 Miscellaneous Notes* Telephone Encounter - [...] filed. Joseph Rolle DO documented in this encounterBethesda North Hospital07-15-2021 Miscellaneous Notes* Telephone Encounter - [...] drive and will complete lab work and picker/puller stool cards 03/21/2021, same day as iron [...] may have had one more recently at [facility]). Add on for 5 more doses of iron sucrose and repeat CBC/Iron studies about a month after completing. Joseph Rolle DO documented in this encounterUC Medical Centerlt note Author Eboni Chan [facility] December 30, 2023 2:23pm Note Date/Time December 30, 2023 2:24pm [facility] Medical Records Department [address] [place] [address] Counseling Note - Pharmacy 12/30/23 1423 MR#: [id number] Acct: [id number] Name: OLGA DONALDSON Rep #:[id number] : 1945 78 From: Eboni Chan PCP: Dr. Ramone Smiley MD Status:ADM IN [facility] [place] [facility] Service has performed discharge medication reconciliation for this patient. The patient's discharge medication list was reviewed for discrepancies and discrepancies were resolved. Medications at Discharge Home Medications aspirin 81 mg chewable tablet 81 mg PO DAILY [facility] 01/21/16 albuterol sulfate 90 mcg/actuation aerosol inhaler [...] (if applicable): Date CC: ~ Signed [facility] Work Phone: Consult note Author Eboni Chan [facility] Note Date/Time January 24, 2025 2:52p [facility] Medical Records Department [address] [place] [address] Counseling Note - Pharmacy 01/24/25 1451 MR#: [id number] Acct: [id number] Name: OLGA DONALDSON Rep #:[id number] : 1945 80 From: Eboni Chan PCP: Dr. Ramone Smiley MD Status:ADM [facility] Counseling Pharmacy Service has performed discharge [...] mg chewable tablet 81 mg PO DAILY [facility] 01/21/16 magnesium oxide 400 mg (241.3 mg [...] (if applicable): Date CC: ~ Signed [facility] Work Phone: Discharge summary Author Sunny Bell [facility] December 30, 2023 2:14pm Note Date/Time December 30, 2023 2:05pm [facility] Medical Records Department [address] [place] [address] Transfer to Extended Care MR#: [id number] Acct: [id number] Name: OLGA DONALDSON Rep #:[id number] : 1945 78 From: Sunny Blue PCP: Dr. Ramone Smiley MD Status:ADM IN Certification of patient admission REQUIRED AT TIME OF ADMISSION. I CERTIFY THAT POST-HOSPITAL ECF SERVICES ARE REQUIRED TO BE GIVEN ON AN IN-PATIENT BASIS BECAUSE OF THE ABOVE NAMED PATIENT'S NEED FOR USP CARE ON A CONTINUING BASIS FOR THE CONDITION(S) FOR WHICH HE/SHE WAS RECEIVING IN-PATIENT HOSPITAL SERVICES PRIOR TO HIS/HER TRANSFER TO [facility]. 12/30/23 1414<Electronically signed by Sunny Bell MD> [...] is a 78-year-old female who presented [facility] ED on 12/27/2023 with left hip [...] cousin over the phone who lives in [facility]. Patient is clinically doing well. Currently [...] in before D/C Order can be placed): Longterm Facility 12/30/231413 <Electronically signed by Sunny Bell MD> Cosigner Signature (if applicable): CC: Dr. Nestor Bartlett DO; Dr. Ramone Smiley MD; Dr. Gabriel Byrd MD ~ [facility] Work Phone: Discharge summary Author Sunny Bell [facility] December 30, 2023 2:26pm Note Date/Time December 30, 2023 2:21pm [facility] Medical Records Department [address] [place] [address] Discharge Summary 12/30/231413 MR#: [id number] Acct: [id number] Name: OLGA DONALDSON Rep #:[id number] : 1945 78 From: Sunny Blue PCP: Dr. Ramone Smiley MD Status:ADM IN Location: [place] [address] Providers Date of Admission: 12/27/23 Date of [...] is a 78-year-old female who presented [facility] ED on 12/27/2023 with left hip [...] cousin over the phone who lives in [facility] [place]. Patient is clinically doing well. Currently [...] mg chewable tablet 81 mg PO DAILY [facility] 01/21/16 albuterol sulfate 90 mcg/actuation aerosol inhaler [...] % (Auto) 63.9, Lymph % (Auto) 25.3, [place] % (Auto) 8.7, Eos % (Auto) 1.4, [...] in before D/C Order can be placed): Longterm Facility Charges/Coding Visit Charges Inpatient E&M: 21825 Disch Hosp >30min 12/30/23 1426 <Electronically signed by Sunny Bell MD> Cosigner Signature (if applicable): CC: Dr. Ramone Smiley MD; Dr. Sunny Bell MD; Dr. Gabriel Byrd MD~ Signed [facility] Work Phone: Discharge summary Author Melba Hartmann [facility] Note Date/Time January 24, 2025 1:27p m [facility] Medical Records Department [address] [place] [address] Instructions for Home/Discharge Instructions 01/24/25 1326 MR#: [id number] Acct: [id number] Name: OLGA DONALDSON Rep #:[id number] : 1945 80 From: Melba Hartmann MD [...] Dr. Marcelina Soto MD ~ Signed [facility] Work Phone: Discharge summary Author Jg Bryan [facility] Note Date/Time January 26, 2025 5:10a m [facility] Medical Records Department [address] [place] [address] Emergency Department Summary 01/26/25 MR#: [id number] Acct: [id number] Name: OLGA DONALDSON Rep #:[id number] : 1945 80 From: Jg Bryan DO [...] symptoms and therefore comes in for evaluation [facility] Medical History Fracture of [...] cardiac dysrhythmia. Patient was kept on the converting operator and there was no dysrhythmia noted. [...] % (Auto) 65.0 Lymph % (Auto) 25.1 [place] % (Auto) 6.7 Eos % (Auto) 2.8 [...] you have any further concerns Print Language: Portuguese Disposition Disposition: Home, Self Care What to do if you have Problems For any increased pain, shortness of breath, bleeding, nausea or vomiting, chestpain, or any unexpected problems, contact your Primary Care Provider. Call [facility] ([phone]) or report to the closest Emergency Room. Call 911 if necessary. 01/26/25 0510 <Electronically signed by Jg Bryan DO> Cosigner Signature (if applicable): CC: Dr. Ramone Smiley MD ~ Signed [facility] Work Phone: Discharge summary Author Aj Holley [facility] Note Date/Time February 04, 2025 10:27 am [facility] Medical Records Department [address] [place] [address] Emergency Department Summary 02/04/25 MR#: [id number] Acct: [id number] Name: OLGA DONALDSON Rep #:[id number] : 1945 80 From: Aj Holley MD [...] of the couch, and has no pain. [facility] Medical History Elevated troponin [...] 75.4 H Lymph % (Auto) 15.7 L [place] % (Auto) 6.6 Eos % (Auto) 1.7 [...] BID (DME) lancets [TRUEplus Lancets] [facility] MISCELLANEOUS Breztri Aerosphere 160-9-4.8 mcg/actuation HFA aerosol inhaler 2 inh inhalation BID Primary Care Provider: Ramone Smiley Referrals: Ramone Smiley MD [Primary Care Provider] - Print Language: Portuguese What to do if you have Problems For any increased pain, shortness of breath, bleeding, nausea or vomiting, chestpain, or any unexpected problems, contact your Primary Care Provider. Call [facility] ([phone]) or report to the closest Emergency Room. [...] Dr. 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 It may contain incorrectwords, spelling, and [...] 35.5 L Lymph % (Auto) 49.3 H [place] % (Auto) 11.1 H Eos % (Auto) [...] [place]atase 132 [place] [address] H Total Protein 6.9 Albumin 3.5 Globulin 3.5 Albumin/Globulin Ratio 1.0 Urine Color Yellow Urine Clarity Cloudy Urine pH 6.0 Ur Specific [place] 1.020 Urine Protein 100 H Urine Glucose [...] edema or pneumonia. Advise correlation. Reading Location: [place] [address] Critical Care Time Critical Care Time: Yes Critical care time (excluding procedures): 30-74 minutes, Discussing w/Patient &/or Family/Panel Machine Operator, Discussing w/Consultants, Arranging Admission or Transfer, Performing [...] your Primary Care Provider. Call [facility] ([phone]) or report to the closest Emergency Room. Call 911 if necessary. 04/02/25 045 <Electronically signed by Ethan Casanova> Cosigner Signature (if applicable): CC: Dr. Ramone Smiley MD ~ Signed [facility] Work Phone: Evaluation note* Diagnosis Onset Date Resolution Status Multiple thyroid nodules acu te Chronic renal failure, stage 3 (moderate) chronic Hypercalcemia chronic Abscess acute Abscess acute Abscess acute [facility] Work Phone: Evaluation note* Diagnosis Iron deficiency anemia due to chronic blood loss- Primary Iron deficiency anemia secondary to blood loss (chronic) documented in this encounter [facility] note* Diagnosis Onset Date Resolution Status Abscess acute Abscess acute Abscess acute Abscess acute Abscess acute Paronychia of left index finger [facility] Work Phone: Evaluation note* Diagnosis Iron deficiency anemia due to chronic blood loss- Primary Iron deficiency anemia secondary to blood loss (chronic) documented in this encounter [facility] note* Diagnosis Anemia, unspecified type- Primary documented in this encounter [facility] note* Diagnosis Iron deficiency anemia due to chronic blood loss- Primary Iron deficiency anemia secondary to blood loss (chronic) documented in this encounter [facility] noteNo assessment information availableWOhio [facility] Work Phone: Evaluation note* Diagnosis Onset Date Resolution Status Gastroenteritis acute [facility] Work Phone: Evaluation note* Diagnosis Onset Date Resolution Status Gastroenteritis acute Falls acute Weakness acute Asthma chronic COPD (chronic obstructive pulmonary disease) chronic GERD (gastroesophageal reflux disease) chronic History of malignant neoplasm of breast chronic Hypertension chronic Neurogenic bladder chronic Type 2 diabetes mellitus chr onic Acute hyponatremia resolved Acute UTI resolved LIA (acute kidney injury) re solved [facility] Work Phone: Evaluation note* Diagnosis Onset Date Resolution Status Fracture of hip, left, closed acute [facility] Work Phone: Evaluation note* Diagnosis Onset Date Resolution Status Falls acute Fracture of hip, left, closed acute Microcytic anemia acute Weakness acute Chronic renal failure, stage 3 (moderate) chronic Hypercalcemia chronic [facility] Work Phone: Evaluation note* Diagnosis Onset Date Resolution Status Gastroenteritis acute Acute hyponatremia acute Acute UTI acute LIA (acute kidney injury) ac jason [place] acute Weakness acute Asthma chronic COPD (chronic obstructive pulmonary disease) chronic GERD (gastroesophageal reflux disease) chronic History of malignant neoplasm of breast chronic Hypertension chronic Neurogenic bladder chronic Type 2 diabetes mellitus chr onic [facility] Work Phone: History and physical note Author Heydi Amaya [facility] August 13, 2023 2:47pm Note Date/Time August 13, 2023 2:33pm [facility] Medical Records Department [address] [place] [address] H&P Exam - Hospitalist 08/13/23 1431 MR#: [id number] Acct: [id number] Name: OLGA DONALDSON Rep #:[id number] : 1945 78 From: Heydi Amaya MD PCP: Dr. Ramone Smiley MD Status:ADM IN Location: [place] [address] HPI - General General Date of Admission: 08/13/23 Date of Service: 08/13/23 Chief Complaint: Increasing weakness HPI Narrative OLGA DONALDSON, is [id number] female history of GERD, COPD, hypertension, diabetes, chronic urinary retention with self cathing presented to [facility] 08/13/2023 with increasing generalized weakness and [...] acute complaints at this time. [facility] Medical History Anemia Anxiety Aortic [...] (Auto) 82.7 H, Lymph% (Auto) 9.4 L, [place] % (Auto) 6.1, Eos % (Auto) 0.1, [...] Sl. Cloudy, Urine pH 5.0, Ur Specific [place] 1.015, Urine Protein 30 H, Urine Glucose [...] Amaya MD Charges/Coding Visit Charges Inpatient E&M: 35803 Init Hosp L2 08/13/23 1447 <Electronically signed by Heydi Amaya MD> Cosigner Signature (if applicable): CC: Dr. Ramone Smiley MD; Dr. Heydi Amaya MD~ Signed [facility] Work Phone: History and physical note Author Tono Gomez [facility] Note Date/Time February 09, 2025 3:52 pm [facility] Medical Records Department [address] [place] [address] H&P Exam - Hospitalist 02/09/25 1525 MR#: [id number] Acct: [id number] Name: OLGA DONALDSON Rep #:[id number] : 1945 80 From: Tono BHATTI PCP: [...] tightness, no dizziness or lightheadedness, no palpitations. [facility] Medical History COPD with exacerbation [...] (Auto) 86.9 H, Lymph % (Auto) 7.3L, [place] % (Auto) 4.5, Eos % (Auto) 0.1, [...] degree of bibasilar linear atelectasis. Reading Location: [facility] Assessment & Plan Assessment/Plan (1) COPD exacerbation: [...] Dykes; Dr. Ramone Smiley MD~ Signed [facility] Work Phone: History and physical note Author Nestor Bartlett [facility] Note Date/Time February 15, 2025 2:57 pm [facility] Medical Records Department [address] [place] [address] H&P Exam - Hospitalist 02/15/25 1401 MR#: [id number] Acct: [id number] Name: OLGA DONALDSON Rep #:[id number] : 1945 80 From: Nestor roman DO PCP: Dr. Ramone Smiley MD Status:ADM TED Location: [facility] HPI - General General Date of Admission: 02/15/25 Date of Service: 02/15/25 Chief Complaint: Shortness of breath, acute on chronic debility HPI Narrative OLGA DONALDSON, is a 80 F who presented to [facility] ED on 02/15/2025 with shortness of [...] currently. Will be admitted for further management. [facility] Medical History (Updated 02/15/25 @ [...] 82.5 H, Lymph % (Auto) 10.9 L, [place] % (Auto) 4.8, Eos % (Auto) 0.7, [...] evidence of acute cardiopulmonary process. [facility] Assessment & Plan Assessment/Plan (1) Generalized weakness: PLAN: Plan Patient is an 80-year-old female who presented [facility] ED on 02/15/2025 with recurrent shortness [...] 75 minutes. Charges/Coding Visit Charges Inpatient E&M: 28423 Init Hosp L3 02/15/25 7351 <Electronically signed by Nestor Bartlett DO> Cosigner Signature (if applicable): CC: Dr. Nestor Bartlett, DO; Dr. Ramone Smiley MD~ Signed [facility] Work Phone: Hospital Discharge instructions Additional Instructions Chest x-ray negative. COVID, flu, RSV negative. Your glucose 321 the lab normal gap. You are given 10 units of short acting insulin. You were started on antibiotics and steroids. Your glucose will be elevated with the steroids. Continue insulin including your sliding scale. Next dose of antibiotics steroids is tomorrow. This was sent to [facility] Work Phone: Hospital Discharge instructions Additional Instructions Take medications as prescribed. Follow-up your doctor in outpatient setting. Return with worsening symptoms or concerns.[facility] Work Phone: Hospital Discharge instructions Additional [...] the ER should you have any further concernsWOhio [facility] Work Phone: Hospital Discharge instructions Additional Instructions Continue your steroids and your nebulizer treatments as previously directed. Your chest x-ray did not show pneumonia today. Continue to wear your nasal cannula oxygen.[facility] Work Phone: Hospital Discharge instructionsAdditional Instructions Follow-up with your doctor in outpatient setting. Follow-up and urine culture. Take antibiotic as prescribed sent to your pharmacy. Urinalysis did show evidence of infection. Take MiraLAX twice daily until you are having good bowel movements then you can reduce to once daily. Return with any other concerns or worsening symptomsWOhio State Health System Work Phone: Reason for referral (narrative)No reason for referral information availableWOhio State Health System Work Phone: Summary Purpose Family History Relationship Condition Age at Onset Recorded Date/T davis daughter Malignant neoplasm of breast Unknown father Hypertension Unknown sister Malignant neoplasm Unknown Kidney disorder Unknown mother Malignant neoplasm of pancreas Unknown Advance Directives Advance Directive Response Recorded Date/ Time Advance Directives Yes December 02 8:47am Living Will Yes December 02, 2021 8:47am Power of Director Money Yes December 02 8:47am Documents on File Type Date 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 Advance Directive(s) 05/12/2016 10:06 AM Advance Directive(s) 04/30/2016 11:10 AM Advance Directive(s) 02/19/2016 5:55 AM Advance Directive(s) 02/14/2016 3:07 PM Advance Directive Response Recorded Date/ Time Advance Directives Yes December 02 7:47am Living Will Yes July 14, 2 022 2:52pm Power of Director Money Yes July 14, 2022 2:52pm Name of Medical Power of Director Money son July 14, 2022 2:52pm Advance Directive Response Recorded Date/ Time Advance Directives Yes December 02 8:47am Living Will Yes July 14, 2 022 3:52pm Power of Director Money Yes July 14, 2022 3:52pm Advance Directive Response Recorded Date/ Time Name of Medical Power of Director Money SHANTELLE January 28, 2023 3:11pm Advance Directives Yes December 02 8:47am Living Will Yes January 28, 2023 3 :11pm Power of Director Money Yes January 28, 2023 3:11pm Advance Directive Response Recorded Date/ Time Name of Medical Power of Director Money Ursula Donaldson July 18, 2023 11:35pm Advance Directives Yes December 02 7:47am Living Will Yes July 18, 2 023 11:35pm Power of Director Money Yes July 18, 2023 11:35pm Advance Directive Response Recorded Date/ Time Name of Medical Power of Director Money . August 07, 2023 9:45pm Advance Directives Yes December 02 7:47am Living Will No August 13, 2 023 3:22pm Power of Director Money No August 13, 2023 3:22pm Name of Medical Power of Director Money Ursula Donaldson July 18, 2023 11:35pm Advance Directive Response Recorded Date/ Time Advance Directives Yes December 02 8:47am Living Will No August 13, 2 023 4:22pm Power of Director Money No August 13, 2023 4:22pm Advance Directive Response Recorded Date/ Time Advance Directives Yes December 02 8:47am Living Will No December 27, 2023 11:02pm Power of Director Money No December 26 11:02pm Advance Directive Response Recorded Date/ Time Advance Directives Yes December 02 8:47am Living Will No December 28, 2023 12:27am Power of Director Money No December 27 12:27am Advance Directive Response Recorded Date/ Time Name of Medical Power of Director Money . August 07, 2023 9:45pm Advance Directives Yes December 02 7:47am Living Will No August 13 11:05am Power of Director Money No August 13, 2023 11:05am Name of Medical Power of Director Money Ursula Donaldson July 18, 2023 11:35pm Advance Directive Response Recorded Date/ Time Do you have a Healthcare Power of Director Money? No January 07, 2025 3:00pm Advance Directives Yes December 02 8:47am Advance Directive Response Recorded Date/ Time Do you have a Healthcare Power of Director Money? No January 15, 2025 2:24pm Do you have a Healthcare Power of Director Money? No January 07, 2025 3:00pm Advance Directives Yes December 02 8:47am Advance Directive Response Recorded Date/ Time Do you have a Healthcare Power of Director Money? No January 15, 2025 2:24pm Do you have a Healthcare Power of Director Money? No January 20, 2025 4:39am Do you have a Healthcare Power of Director Money? No January 07, 2025 3:00pm Advance Directives Yes December 02 8:47am Advance Directive Response Recorded Date/ Time Do you have a Healthcare Power of Director Money? No January 15, 2025 2:24pm Do you have a Healthcare Power of Director Money? No January 20, 2025 4:39am Do you have a Healthcare Power of Director Money? No January 07, 2025 3:00pm Do you have a Healthcare Power of Director Money? No January 26, 2025 3:01am Advance Directives Yes December 02 8:47am Advance Directive Response Recorded Date/ Time Do you have a Healthcare Power of Director Money? No January 15, 2025 2:24pm Do you have a Healthcare Power of Director Money? No January 20, 2025 4:39am Do you have a Healthcare Power of Director Money? Yes February 04, 2025 6:32am Name of Medical Power of Director Money February 04, 2025 6:32am Do you have a Healthcare Power of Director Money? No January 07, 2025 3:00pm Do you have a Healthcare Power of Director Money? No January 26, 2025 3:01am Advance Directives Yes December 02 8:47am Advance Directive Response Recorded Date/ Time Do you have a Healthcare Power of Director Money? No January 15, 2025 2:24pm Do you have a Healthcare Power of Director Money? No January 20, 2025 4:39am Do you have a Healthcare Power of Director Money? Yes February 04, 2025 12:35pm Name of Medical Power of Director Money February 04, 2025 6:32am Do you have a Healthcare Power of Director Money? No January 07, 2025 3:00pm Do you have a Healthcare Power of Director Money? No January 26, 2025 3:01am Advance Directives Yes December 02 8:47am Advance Directive Response Recorded Date/ Time Do you have a Healthcare Power of Director Money? No January 15, 2025 2:24pm Do you have a Healthcare Power of Director Money? No January 20, 2025 4:39am Do you have a Healthcare Power of Director Money? Yes February 04, 2025 12:35pm Name of Medical Power of Director Money February 04, 2025 6:32am Do you have a Healthcare Power of Director Money? Yes February 09, 2025 12:01pm Name of Medical Power of Director Money [email or web address] [email or web address] [email or web address] February 09, 2025 12:01pm Do you have a Healthcare Power of Director Money? No January 07, 2025 3:00pm Do you have a Healthcare Power of Director Money? No January 26, 2025 3:01am Advance Directives Yes December 02 8:47am Advance Directive Response Recorded Date/ Time Do you have a Healthcare Power of Director Money? No January 15, 2025 2:24pm Do you have a Healthcare Power of Director Money? No January 20, 2025 4:39am Do you have a Healthcare Power of Director Money? Yes February 04, 2025 12:35pm Name of Medical Power of Director Money February 04, 2025 6:32am Do you have a Healthcare Power of Director Money? Yes February 09, 2025 4:43pm Name of Medical Power of Director Money [email or web address] [email or web address] jr February 09, 2025 4:43pm Do you have a Healthcare Power of Director Money? No January 07, 2025 3:00pm Do you have a Healthcare Power of Director Money? No January 26, 2025 3:01am Advance Directives Yes December 02 8:47am Advance Directive Response Recorded Date/ Time Do you have a Healthcare Power of Director Money? No January 15, 2025 2:24pm Do you have a Healthcare Power of Director Money? No January 20, 2025 4:39am Do you have a Healthcare Power of Director Money? Yes February 04, 2025 12:35pm Name of Medical Power of Director Money February 04, 2025 6:32am Do you have a Healthcare Power of Director Money? Yes February 09, 2025 4:43pm Name of Medical Power of Director Money [email or web address] [email or web address] jr February 09, 2025 4:43pm Do you have a Healthcare Power of Director Money? Yes February 15, 2025 8:36am Do you have a Healthcare Power of Director Money? No January 07, 2025 3:00pm Do you have a Healthcare Power of Director Money? No January 26, 2025 3:01am Advance Directives Yes December 02 8:47am Advance Directive Response Recorded Date/ Time Do you have a Healthcare Power of Director Money? No January 15, 2025 2:24pm Do you have a Healthcare Power of Director Money? No January 20, 2025 4:39am Do you have a Healthcare Power of Director Money? Yes February 04, 2025 12:35pm Name of Medical Power of Director Money February 04, 2025 6:32am Do you have a Healthcare Power of Director Money? Yes February 09, 2025 4:43pm Name of Medical Power of Director Money [email or web address] [email or web address] jr February 09, 2025 4:43pm Do you have a Healthcare Power of Director Money? Yes February 15, 2025 3:20pm Do you have a Healthcare Power of Director Money? No January 07, 2025 3:00pm Do you have a Healthcare Power of Director Money? No January 26, 2025 3:01am Advance Directives Yes December 02 8:47am Advance Directive Response Recorded Date/ Time Do you have a Healthcare Power of Director Money? No January 15, 2025 2:24pm Do you have a Healthcare Power of Director Money? No January 20, 2025 4:39am Do you have a Healthcare Power of Director Money? Yes February 04, 2025 12:35pm Name of Medical Power of Director Money February 04, 2025 6:32am Do you have a Healthcare Power of Director Money? Yes February 09, 2025 4:43pm Name of Medical Power of Director Money [email or web address] [email or web address] jr February 09, 2025 4:43pm Do you have a Healthcare Power of Director Money? Yes February 15, 2025 3:20pm Do you have a Healthcare Power of Director Money? No January 07, 2025 3:00pm Do you have a Healthcare Power of Director Money? No January 26, 2025 3:01am Do you have a Healthcare Power of Director Money? Yes February 18, 2025 8:56pm Advance Directives Yes December 02 8:47am Advance Directive Response Recorded Date/ Time Do you have a Healthcare Power of Director Money? No January 15, 2025 2:24pm Do you have a Healthcare Power of Director Money? No January 20, 2025 4:39am Do you have a Healthcare Power of Director Money? Yes February 04, 2025 12:35pm Name of Medical Power of Director Money February 04, 2025 6:32am Do you have a Healthcare Power of Director Money? Yes February 09, 2025 4:43pm Name of Medical Power of Director Money [email or web address] [email or web address] jr February 09, 2025 4:43pm Do you have a Healthcare Power of Director Money? Yes February 15, 2025 3:20pm Do you have a Healthcare Power of Director Money? No January 07, 2025 3:00pm Do you have a Healthcare Power of Director Money? No January 26, 2025 3:01am Do you have a Healthcare Power of Director Money? Yes February 18, 2025 8:56pm Do you have a Healthcare Power of Director Money? Yes March 04, 2025 6:52pm Advance Directives Yes December 02 8:47am Advance Directive Response Recorded Date/ Time Do you have a Healthcare Power of Director Money? No January 15, 2025 2:24pm Do you have a Healthcare Power of Director Money? No January 20, 2025 4:39am Do you have a Healthcare Power of Director Money? Yes February 04, 2025 12:35pm Name of Medical Power of Director Money February 04, 2025 6:32am Do you have a Healthcare Power of Director Money? Yes February 09, 2025 4:43pm Name of Medical Power of Director Money [email or web address] [email or web address] jr February 09, 2025 4:43pm Do you have a Healthcare Power of Director Money? Yes February 15, 2025 3:20pm Do you have a Healthcare Power of Director Money? No January 07, 2025 3:00pm Do you have a Healthcare Power of Director Money? No January 26, 2025 3:01am Do you have a Healthcare Power of Director Money? Yes February 18, 2025 8:56pm Do you have a Healthcare Power of Director Money? Yes March 04, 2025 6:52pm Do you have a Healthcare Power of Director Money? No March 21, 2025 1:31pm Advance Directives Yes December 02 8:47am Advance Directive Response Recorded Date/ Time Do you have a Healthcare Power of Director Money? No January 15, 2025 2:24pm Do you have a Healthcare Power of Director Money? No January 20, 2025 4:39am Do you have a Healthcare Power of Director Money? Yes February 04, 2025 12:35pm Name of Medical Power of Director Money February 04, 2025 6:32am Do you have a Healthcare Power of Director Money? Yes February 09, 2025 4:43pm Name of Medical Power of Director Money [email or web address] lees jr February 09, 2025 4:43pm Do you have a Healthcare Power of Director Money? Yes February 15, 2025 3:20pm Do you have a Healthcare Power of Director Money? No January 07, 2025 3:00pm Do you have a Healthcare Power of Director Money? No January 26, 2025 3:01am Do you have a Healthcare Power of Director Money? Yes February 18, 2025 8:56pm Do you have a Healthcare Power of Director Money? Yes March 04, 2025 6:52pm Do you have a Healthcare Power of Director Money? Yes March 22, 2025 12:37am Name of Medical Power of Director Money [email or web address] March 22, 2025 12:37am Advance Directives Yes December 02 8:47am Advance Directive Response Recorded Date/ Time Do you have a Healthcare Power of Director Money? No January 15, 2025 2:24pm Do you have a Healthcare Power of Director Money? No January 20, 2025 4:39am Do you have a Healthcare Power of Director Money? Yes February 04, 2025 12:35pm Name of Medical Power of Director Money February 04, 2025 6:32am Do you have a Healthcare Power of Director Money? Yes February 09, 2025 4:43pm Name of Medical Power of Director Money [email or web address] teo bradshaw February 09, 2025 4:43pm Do you have a Healthcare Power of Director Money? Yes February 15, 2025 3:20pm Do you have a Healthcare Power of Director Money? No January 07, 2025 3:00pm Do you have a Healthcare Power of Director Money? No January 26, 2025 3:01am Do you have a Healthcare Power of Director Money? Yes February 18, 2025 8:56pm Do you have a Healthcare Power of Director Money? Yes March 04, 2025 6:52pm Do you have a Healthcare Power of Director Money? Yes March 22, 2025 12:37am Name of Medical Power of Director Money [email or web address] [email or web address] March 22, 2025 12:37am Do you have a Healthcare Power of Director Money? No April 02, 2025 2:58am Advance Directives [...] sob January 26, 2025 3:00a m S/P [facility] 01/24 (PCU) January 31, 2025 1:42p [...] sob January 26, 2025 3:00a m S/P [facility] 01/24 (PCU) January 31, 2025 1:42p [...] sob January 26, 2025 3:00a m S/P [facility] 01/24 (PCU) January 31, 2025 1:42p [...] sob January 26, 2025 3:00a m S/P [facility] 01/24 (PCU) January 31, 2025 1:42p [...] sob January 26, 2025 3:00a m S/P [facility] 01/24 (U) January 31, 2025 1:42p [...] sob January 26, 2025 3:00a m S/P [facility] 01/[address] ([facility]) January 31, 2025 1:42p m HYPOXIA, EXACERBATION [...] sob January 26, 2025 3:00a m S/P [facility] 01/24 (PCU) January 31, 2025 1:42p [...] sob January 26, 2025 3:00a m S/P [facility] 01/24 (PCU) January 31, 2025 1:42p [...] sob January 26, 2025 3:00a m S/P [facility] 01/24 (PCU) January 31, 2025 1:42p [...] sob January 26, 2025 3:00a m S/P [facility] 01/24 (U) January 31, 2025 1:42p [...] sob January 26, 2025 3:00a m S/P [facility] 01/24 (PCU) January 31, 2025 1:42p [...] sob January 26, 2025 3:00a m S/P [facility] 01/24 (U) January 31, 2025 1:42p [...] sob January 26, 2025 3:00a m S/P [facility] 01/24 (U) January 31, 2025 1:42p [...] sob January 26, 2025 3:00a m S/P [facility] 01/24 (PCU) January 31, 2025 1:42p [...] section and content) DATE CREATED AUTHOR 02/25/2018 [facility] DATE CREATED AUTHOR AUTHOR'S ORGANIZ ATION 05/08/2022 [facility] DATE CREATED AUTHOR AUTHOR'S ORGANIZ ATION 04/01/2025 [facility] Goals (unrecognized section and content) [...] or prosecute any alcohol or drug abuse patient.[facility] the event this information is protected by the Federal Confidentiality of Alcohol and Drug Abuse Patient Records regulations: The Federal rules restrict any use of the information to criminally investigate or prosecute any alcohol or drug abuse patient.[facility] the event this information is protected by the Federal Confidentiality of Alcohol and Drug Abuse Patient Records regulations: The Federal rules restrict any use of the information to criminally investigate or prosecute any alcohol or drug abuse patient.[facility] the event this information is protected by the Federal Confidentiality of Alcohol and Drug Abuse Patient Records regulations: The Federal rules restrict any use of the information to criminally investigate or prosecute any alcohol or drug abuse patient.[facility] the event this information is protected by the Federal Confidentiality of Alcohol and Drug Abuse Patient Records regulations: The Federal rules restrict any use of the information to criminally investigate or prosecute any alcohol or drug abuse patient.[facility] Care Teams (unrecognized sec tion [...] January 26, 2025 End: January 26, 2025 Tank Systems Maintainer Relationship Specialty Start Date End Date Ramone Smiley MD PCP - General Family Practice 08/16/15 [employer] Maintainer Relationship Specialty Start Date End Date Ramone Smiley MD PCP - General Family Practice 08/16/15 [employer] Maintainer Relationship Specialty Start Date End Date Ramone Smiley MD PCP - General Family Practice 08/16/15 [employer] Maintainer Relationship Specialty Start Date End Date Ramone Smiley MD PCP - General Family Practice 08/16/15 [employer] Maintainer Relationship Specialty Start Date End Date Ramone [...] End: January 31, 2025 Whitney Cao NP, HEADEND TECHNICIAN-C Attending Provider Active Start: January 31, 2025 [...] 2025 End: January 31, 2025 Whitney Cao HEADEND TECHNICIAN, HEADEND TECHNICIAN-C Attending Provider Active Start: January 31, 2025 [...] Provider Active Start: February 05, 2025 Dr. uLcio Borden DO Other Provider Active S tart: [...] Active Start: March 07, 2025 Whitney Cao HEADEND TECHNICIAN, HEADEND TECHNICIAN-C Attending Provider Active Start: March 07, 2025 Whitney Cao HEADEND TECHNICIAN, HEADEND TECHNICIAN-C Referring Provider Active Start: March 07, 2025 [...] 2025 End: March 07, 2025 Whitney Cao HEADEND TECHNICIAN, HEADEND TECHNICIAN-C Attending Provider Active Start: March 07, 2025 End: March 07, 2025 Whitney Cao HEADEND TECHNICIAN, HEADEND TECHNICIAN-C Referring Provider Active Start: March 07, 2025 End: March 07, 2025 Team Status: Active Member Role/Relationship Status Dates Dr. Ramone Smiley MD Primary Care Provider Active Start: March 07, 2025 Whitney Cao HEADEND TECHNICIAN, HEADEND TECHNICIAN-C Referring Provider Active Start: March 07, 2025 Whitney Cao HEADEND TECHNICIAN, HEADEND TECHNICIAN-C Other Provider Active Sta rt: March 07, 2025 Dr. Se Good MD Attending Provider Active S tart: March 07, 2025 Team Status: Active Member Role/Relationship Status Dates Dr. Ramone Smiley MD Primary Care Provider Active Start: March 09, 2025 Whitney Cao HEADEND TECHNICIAN, HEADEND TECHNICIAN-C Attending Provider Active Start: March 09, 2025 [...] Status: Inactive Member Role/Relationship Status Dates Dr. Raomne Smiley [...] 2025 End: January 19, 2025 Dr. Ramone Smliey MD Attending Provider Active St art: January [...] 2025 End: January 31, 2025 Whitney Cao HEADEND TECHNICIAN, HEADEND TECHNICIAN-C Attending Provider Active Start: January 31, 2025 [...] BE BASED ON THE PRIMARY CLINICAL RECORDS. [facility] [employer] [facility]. provides no warranty or guarantee of the accuracy or completeness of information in this document.
[2025-04-02] MEDS: Pantoprazole Sodium 40 MG in 0.9% Normal Saline (100mL MB+) 100 ML 330 MG IV (06:35)
[2025-04-02] MEDS: 0.9% Saline Lock 10 ML Syringe IV (06:37)
--- NOTE | 2025-04-02 07:06 | PCM.PN.HOSP ---
Reason for Visit Chief Complaint: SOB. Objective Data Objective Data Vital Signs: Vital Signs Temp Pulse Resp BP Pulse Ox O2 Del Method O2 Flow Rate 97.5 F L 98 28 H 90/72 97 Nasal Cannula 3 04/02/25 06:01 04/02/25 06:01 04/02/25 06:01 04/02/25 06:01 04/02/25 06:01 04/02/25 06:01 04/02/25 06:01 FiO2 35 04/02/25 04:17 Oxygen Flow Rate (L/min) 3 Oxygen Delivery Method Nasal Cannula Weight: 79.7 kg Body Mass Index (BMI) 31.1 Lab / Micro Data 04/02/25 02:53 04/02/25 02:53 Labs: Laboratory Results - last 24 hr 04/02/25 02:53: WBC 9.0, RBC 3.43 L, Hgb 9.5 L, Hct 30.4 L, MCV 88.6, MCH 27.7, MCHC 31.3 L, RDW Std Deviation 51.5 H, RDW Coeff of Vijay 16.0 H, Plt Count 296, MPV 11.9, Immature Gran % (Auto) 0.200, Neut % (Auto) 35.5 L, Lymph % (Auto) 49.3 H, Brooks % (Auto) 11.1 H, Eos % (Auto) 3.3, Baso % (Auto) 0.6, Absolute Neuts (auto) 3.2, Absolute Lymphs (auto) 4.43, Nucleated RBC % 0, PT 14.1, INR 1.1, APTT 28.6, D-Dimer Quant (PE/DVT) 2.43 H*, Sodium 138, Potassium 4.3, Chloride 101, Carbon Dioxide 23.3, Anion Gap 13, BUN 14, Creatinine 0.97, Estim Creat Clear Calc 46.30 L, Est GFR (MDRD) Non-Af 59 L, BUN/Creatinine Ratio 14.4, Glucose 186 H, Calcium 10.3, Magnesium 2.2, Total Bilirubin 0.34, AST 181 H, ALT 53 H, Alkaline Phosphatase 132 H, [place] [address] H, Total Protein 6.9, Albumin 3.5, Globulin 3.5, Albumin/Globulin Ratio 1.0 04/02/25 03:11: Lactic Acid 1.8 04/02/25 03:53: Urine Color Yellow, Urine Clarity Cloudy, Urine pH 6.0, Ur Specific [place] 1.020, Urine Protein 100 H, Urine Glucose (UA) 1000 H, Urine Ketones Negative, Urine Occult Blood 250 H, Urine Nitrite Negative, Urine Bilirubin Negative, Urine Urobilinogen Normal, Ur Leukocyte Esterase 500 H, Urine RBC 5-10 SEEN, Urine WBC 25-50 SEEN, Ur Squamous Epith Cells 0-5 SEEN, Urine Bacteria 1+, Urine Mucus 0 SEEN, Urine Yeast 2+ Micro: Microbiology 04/02/25 03:05 Mucosa - Nasopharyngeal SARS-CoV-2, Influenza & RSV (PCR) - Final ABG Data ABG results: ABG 04/02/25 03:34 Specimen Type BALJIT Sample Site Not entered O2 % 40.0 VBG pH 7.46 H VBG pO2 36 VBG HCO3 32 H VBG Total CO2 33 VBG O2 Sat (Calc) 71 H VBG Base Excess 8 H POC Mix VBG pCO2 Pt Tmp 44.9 O2 Delivery Device BiPAP Clinical Comments 18. 9. Radiography Diagnostic Testing: Radiology Impression Chest X-Ray 04/02/25 03:35 IMPRESSION: Interval development of asymmetric edema or pneumonia. Advise correlation. Reading Location: [place] [id number] 04/02/25 04:22 IMPRESSION: 1. Motion limited examination. Retained secretions within the central trachea, with bilateral ground-glass opacities, compatible with pneumonitis/aspiration pneumonia. 2. Small bilateral pleural effusions. 3. Enlarged thyroid with bilateral nodules. Nonemergent, outpatient thyroid ultrasound recommended if not recently performed for further evaluation. Reading Location: [id number]
[2025-04-02] MEDS: Albumin Human 25% (50 mL) 12.5 GM/50 ML IV.SOLN IV (07:25)
[2025-04-02 07:28] LABS: Allen Test Positive; Base Excess 0 mmol/L (-2 to +2); FI02 3.0; PO2 78 mmHG (75-100); SITE R Brach; SO2 96 % (95-99)
--- NOTE | 2025-04-02 08:05 | PN.HOSP_ITS ---
Hospitalist Note Patient is a medically complex 80-year-old female who was recently [facility]25 from here after hospitalization from 03/21 through 03/25 at which time she was admitted for intractable pain as well as a acute urinary tract infection. She was treated for UTI with Enterococcus and completed antibiotics. Chest x-ray showed atypical patchy airspace disease at that time but was similar to previous CTs. Patient does have a history of chronic hypoxic respiratory failure secondary to COPD/overlap syndrome and is on 2 L at baseline. Evidently, patient developed some hypotension during her hospital course and her Lasix was decreased to 20 mg daily from 20 mg daily from 60 mg. ABG was unremarkable. BNP was markedly elevated at 12,0002. She was in respiratory distress and hypoxic on presentation compared to her baseline and was placed on BIPAP briefly with quick resolution and back to her baseline O2. She was placed on lasix. Doubt PNA. Will discontinue ABX. Discontinue steroids and continue diuresis. Anticipate discharge tomorrow since she is on her baseline O2 as long as she contiues to do well.
[2025-04-02] MEDS: Azelastine HCl NASAL.SRY 2 SPRAY NASAL ×2 (09:46→22:07)
[2025-04-02] MEDS: Insulin Glargine-YFGN 100 UNIT/ML Pen 15 UNIT SC ×2 (09:50→22:10)
[2025-04-02] MEDS: Budesonide Respules 0.5 MG/2 ML AMPUL.NEB. INHALATION (20:19)
--- NOTE | 2025-04-02 21:56 | NURSING ---
2149- this RN called pharmacy to have Dr. Gil IV levaquin order restarted per Dr. Gil order. Verified dosage and frequency w/ Ramone in pharmacy. This RN stated that Dr. Ramsey wanted the next dose to be @ 0604/03/2025, Ramone stated that per the protocol the next dose wouldn't' be due until 219904/03/2025. This RN informed Dr. Ramsey regarding the timing, D.Ramsey agreeable for next dose to be started @ 219904/03/2025
[2025-04-03] VITALS (18 sets, daily range): BP systolic 109–126; BP diastolic 57–81; PULSE 74–102; RESP 12–34; TEMP 36.3–36.7; O2SAT 95–100; BMI 30.6
[2025-04-03 03:15] LABS: Hematocrit 26.9 % (37-47); Hemoglobin 8.4 g/dL (12.0-15.0); Immature Granulocytes Count 0.030 X10^3/uL (0.0-0.0); Mean Corp Hgb Conc 31.2 g/dL (32-36); Mean Corpuscular Volume 85.7 fL (81-99); Mean Platelet Vol. 11.1 fl (6.2-12.0); NRBC Flagged by Analyzer 0 % (0-5); Platelet Count 228 K/mm3 (150-450); RBC Distribution Width CV 15.8 % (11.6-14.6); RBC Distribution Width SD 48.9 fl (35.1-43.9); Red Blood Count 3.14 M/mm3 (4.2-5.4); White Blood Count 6.5 K/mm3 (4.4-11.0)
[2025-04-03 03:58] LABS: AST(SGOT) 56 U/L (<=31); Alanine Aminotransfer ALT/SGPT 64 U/L (<=34); Albumin, Serum 3.4 g/dL (3.4-4.8); Alkaline Phosphatase 133 U/L (35-104); Anion Gap 13 (5-15); BUN 21 mg/dL (4-19); BUN/Creat Ratio 21.1 RATIO (10-20); Calcium,Total 10.2 mg/dL (7.6-11.0); Carbon Dioxide 25.4 mmol/L (21.0-32.0); Chloride 101 mmol/L (98-108); Estimated Creatinine Clearance 45.00 ml/min (50-250); Globulin 2.9 g/dL (2.2-4.2); Glucose 256 mg/dL (70-99); Magnesium 2.2 mg/dL (1.5-2.2); Potassium 4.2 mmol/L (3.3-5.1)
[2025-04-03] MEDS: Budesonide Respules 0.5 MG/2 ML AMPUL.NEB. INHALATION ×2 (07:18→19:58)
[2025-04-03] MEDS: Pantoprazole Sodium 40 MG in 0.9% Normal Saline (100mL MB+) 100 ML 330 MG IV (08:41)
[2025-04-03] MEDS: Insulin Glargine-YFGN 100 UNIT/ML Pen 15 UNIT SC ×2 (08:42→22:06)
--- NOTE | 2025-04-03 10:32 | CASEMGMT ---
Addendum entered by Mariana Wilson 04/03/25 11:03: [facility] has accepted and will submit for precert. SW updated. Mariana Wilson DC Planning Asst. Original Note: Discharge Planning SNF referral sent to [facility]. Mariana Wilson DC Planning Asst.
--- NOTE | 2025-04-03 10:32 | CASEMGMT ---
Addendum entered by Mariana Wilson 04/03/25 11:03: [facility] has accepted and will submit for precert. SW updated. Mariana Wilson DC Planning Asst. Original Note: Discharge Planning SNF referral sent to [facility]. Mariana Wilson DC Planning Asst.
--- NOTE | 2025-04-03 11:39 | CASEMGMT ---
SHAWANDA BURROUGHS Readmission Note: Pt was admitted 03/21/25-03/25/25 for back pain and UTI. Pt was DC'd home with [facility] services and medication adjustments due to hypotension. Pt was instructed to follow up with PCP. Pt reported to the ER with dyspnea and minimal cough but progressed to shortness of breath. She also admitted to decreased urinary output without dysuria and bilateral lower extremity edema. Pt states she is having a difficult time ambulating at home. Pt reports her desire to go to a SNF at time of DC, Pt does not want to go to [facility] as she was previously there and does not wish to return. SHAWANDA BURROUGHS discussed case with MILE, MILE following patient for DC planning at this time. SHAWANDA BURROUGHS available if any needs arise.
--- NOTE | 2025-04-03 11:39 | CASEMGMT ---
SHAWANDA BURROUGHS Readmission Note: Pt was admitted 03/21/25-03/25/25 for back pain and UTI. Pt was DC'd home with [facility] services and medication adjustments due to hypotension. Pt was instructed to follow up with PCP. Pt reported to the ER with dyspnea and minimal cough but progressed to shortness of breath. She also admitted to decreased urinary output without dysuria and bilateral lower extremity edema. Pt states she is having a difficult time ambulating at home. Pt reports her desire to go to a SNF at time of DC, Pt does not want to go to [facility] as she was previously there and does not wish to return. SHAWANDA BURROUGHS discussed case with MILE, MILE following patient for DC planning at this time. SHAWANDA BURROUGHS available if any needs arise.
--- NOTE | 2025-04-03 12:29 | CASEMGMT ---
Addendum entered by Brandie Whitlock 04/03/25 15:15: MILE updated pt on acceptance at [facility] and status of precert. SW called [facility] and notified of pt hospitalization. Brandyn at [facility] expressed appreciation. MILE called [facility] to notify of pt hospitalization, as pt believed she has an assessment this week. SW left a message for Marley Roland. Bedside nurse updated on pt discharge plans. [facility]; pend precert TANIA Elizabeth Original Note: Social Work- SW met with pt to discuss discharge plans. Pt reports that she would like referral to [facility]. [facility] notified. Pt accepted and precert started. MILE remains available to follow. TANIA Elizabeth
--- NOTE | 2025-04-03 12:29 | CASEMGMT ---
Addendum entered by Brandie Whitlock 04/03/25 15:15: MILE updated pt on acceptance at [facility] and status of precert. SW called [facility] and notified of pt hospitalization. Brandyn at [facility] expressed appreciation. MILE called [facility] to notify of pt hospitalization, as pt believed she has an assessment this week. SW left a message for Marley Roland. Bedside nurse updated on pt discharge plans. Plan: [facility]; pend precert TANIA Elizabeth Original Note: Social Work- SW met with pt to discuss discharge plans. Pt reports that she would like referral to [facility]. [facility] notified. Pt accepted and precert started. MILE remains available to follow. TANIA Elizabeth
--- NOTE | 2025-04-03 15:06 | CHAPLAIN ---
Type of Pastoral Visit _x__ Initial Visit ___ Follow-up Visit ___ On-call Visit ___ General Patient Visit ___ Spiritual Assessment ___ Family Conference ___ Bereavement ___ Rapid Response ___ Code Blue ___ Other (describe below) Pastoral Care Referral From _x__ Patient ___ Family ___ Nurse ___ Physician ___ Storekeeper Engineering ___ Manager Inpatient ___ Other (describe below) Sacrament/Intervention _x__ Active listening ___ Anointing ___ Taoism ___ Bereavement ___ Communion ___ Kristal exploration ___ ___ Life review _x__ Prayer ___ Reconciliation ___ Sacrament of Sick _x__ Supportive presence ___ Wedding ___ Other (describe below) Pastoral Comments patient has gotten to know this fire protection engineer through her previous admissions; pt says that she is better but that it is hard to get her blood taken and she is waiting on answers about going to a jail for therapy; pt has concerns but is also thankful for her only son that does so much for the family to give care; pt's is at home but not in good health either; pt welcomes presence and prayer
--- NOTE | 2025-04-03 15:06 | CHAPLAIN ---
Type of Pastoral Visit _x__ Initial Visit ___ Follow-up Visit ___ On-call Visit ___ General Patient Visit ___ Spiritual Assessment ___ Family Conference ___ Bereavement ___ Rapid Response ___ Code Blue ___ Other (describe below) Pastoral Care Referral From _x__ Patient ___ Family ___ Nurse ___ Physician ___ Hand Sewer Shoes ___ Gynecological Assistant ___ Other (describe below) Sacrament/Intervention _x__ Active listening ___ Anointing ___ Jain ___ Bereavement ___ Communion ___ Kristal exploration ___ ___ Life review _x__ Prayer ___ Reconciliation ___ Sacrament of Sick _x__ Supportive presence ___ Wedding ___ Other (describe below) Pastoral Comments patient has gotten to know this product management internship through her previous admissions; pt says that she is better but that it is hard to get her blood taken and she is waiting on answers about going [place]; pt has concerns but is also thankful for her only son that does so much for the family to give care; pt's is at home but not in good health either; pt welcomes presence and prayer
[2025-04-03 16:26] LABS: Hemoglobin 8.8 g/dL (12.0-15.0)
[2025-04-03] MEDS: 0.9% Saline Lock 10 ML Syringe IV (17:04)
--- NOTE | 2025-04-03 19:08 | PN.HOSP_ITS ---
Reason for Visit Chief Complaint: SOB. Subjective Subjective Patient states that she is feeling well overall. Feels like she is back to her baseline breathing. She states she does intermittently like to go on BiPAP as it does help her when she struggles. She feels like she struggles after exertion. Is pleased with her diuresis. States she [facility] not [facility] but is amenable to going on BiPAP at night and as needed when she does go back. I discussed with her that we have case management talk to her. Objective Data Objective Data Vital Signs: Vital Signs Temp Pulse Resp BP Pulse Ox O2 Del Method O2 Flow Rate 97.4 F L 91 19 H 109/73 100 Nasal Cannula 2 04/03/25 14:00 04/03/25 15:00 04/03/25 14:00 04/03/25 14:00 04/03/25 14:00 04/03/25 14:00 04/03/25 14:00 FiO2 35 04/03/25 13:18 Oxygen Flow Rate (L/min) 2 Oxygen Delivery Method Nasal Cannula Weight: 78.4 kg Body Mass Index (BMI) 30.6 Intake & Output: Intake and Output for Last 24 Hours 04/01/25 04/02/25 04/03/25 23:59 23:59 23:59 Intake Total 300 / 300 530 / 530 Output Total 1600 / 1600 1775 / 1775 Balance -1300 / -1300 -1245 / -1245 Lab / Micro Data 04/03/25 15:52 04/03/25 03:08 Labs: Laboratory Results - last 24 hr 04/02/25 02:48: POC Glucose 176 H 04/02/25 22:08: POC Glucose 304 H 04/03/25 03:08: WBC 6.5, RBC 3.14 L, Hgb 8.4 L, Hct 26.9 L, MCV 85.7, MCH 26.8 L , MCHC 31.2 L, RDW Std Deviation 48.9 H, RDW Coeff of Vijay 15.8 H, Plt Count 228, MPV 11.1, Immature Gran % (Auto) 0.500, Neut % (Auto) 76.0 H, Lymph % (Auto) 12.2 L, [place] % (Auto) 11.1 H, Eos % (Auto) 0.0, Baso % (Auto) 0.2, Absolute Neuts (auto) 4.9, Absolute Lymphs (auto) 0.79 L, Nucleated RBC % 0, Sodium 139, Potassium 4.2, Chloride 101, Carbon Dioxide 25.4, Anion Gap 13, BUN 21 H, Creatinine 0.98, Estim Creat Clear Calc 45.00 L, Est GFR (MDRD) Non-Af 58 L, B UN/Creatinine Ratio 21.1 H, Glucose 256 H, Calcium 10.2, Phosphorus 3.0, Magnesium 2.2, Total Bilirubin 0.24, AST 56 H, ALT 64 H, Alkaline Phosphatase 133 H, Total Protein 6.3, Albumin 3.4, Globulin 2.9, Albumin/Globulin Ratio 1.2 04/03/25 08:04: POC Glucose 209 H 04/03/25 15:52: Hgb 8.8 L Micro: Microbiology 04/02/25 15:35 Urine Catheter - Catheter Legionella Antigen - Final 04/02/25 15:35 Urine Catheter - Catheter Streptococcus pneumoniae Antigen (M - Final 04/02/25 04:20 Mucosa - Nasopharyngeal Respiratory Panel (PCR) - Final 04/02/25 03:05 Mucosa - Nasopharyngeal SARS-CoV-2, Influenza & RSV (PCR) - Final Radiography Diagnostic Testing: Radiology Impression Venous Doppler Study 04/02/25 06:01 Interpretation Summary Deep veins of the bilateral lower extremities are patent and compressible segmentally. There is no evidence of bilateral lower extremity deep vein thrombosis. The bilateral great saphenous veins appear patent and compressible segmentally. Ordering Physician: Sandeep Carlton Referring Physician: Ramone Smiley MD Performed By: Kristal Bowen, RVT Physical Exam Const alert, oriented x3, no apparent distress and well nourished Constitutional Narrative: Obese, elderly, -Russian, female, getting back to bed with associate of science in nursing, just mildly winded after doing this, nontoxic, cooperative HEENT head/scalp atraumatic and moist oral mucous membranes HEENT Narrative: No thrush Head and Scalp: normocephalic Resp no retractions, no use of accessory muscles and No clear to auscultation bilaterally Resp Narrative: Diffusely diminished with just a few scattered crackles at the bases bilaterally, mild tachypnea as she is 0 to herself he gets back to bed Auscultation: crackles; Negative for rhonchi or wheezes Cardio regular rate, regular rhythm, S1 normal heart sound, S2 normal heart sound, no murmurs, no rub, no gallops and no clicks GI normal to inspection, nondistended, normoactive bowel sounds, soft to palpation and non-tender Extremity Extremity Narrative: 1+ bilateral lower extremity pitting edema, no cyanosis or clubbing, radial pulses are 2+ bilaterally Neuro moves all extremities and no focal motor deficits Neuro Narrative: Significant generalized weakness noted but no focal deficits Psych affect normal Psych Narrative: Very pleasant, interacts appropriately Assessment & Plan Assessment/Plan (1) Acute exacerbation of chronic heart failure: (2) Acute on chronic hypoxic respiratory failure: PLAN: Plan Acute on chronic hypoxic respiratory failure secondary to acute exacerbation of heart failure with combined systolic and diastolic dysfunction - Diuretics were decreased at last hospitalization due to hypotension from 60 mg to 20 mg daily - Suspect this is why she decompensated next-BNP was markedly elevated at greater than 12,000 on presentation - Continue IV diuretics 40 mg IV twice daily - Pressures are stable at this time - EF on her echocardiogram from 01/20/2025 showed 35 to 40% with diastolic dysfunction and global hypokinesis of the LV - Continue fluid restriction - Continue I's and O's - At discharge we will plan to transition back to 60 mg daily - Highly doubt pneumonia based on clinical findings--> will discontinue antibiotics and monitor cultures closely Abnormal UA - patient recently treated for acute uncomplicated urinary tract infection and should have completed a course based on my review - Culture shows white cells and only 1+ bacteria but show significant yeast - Culture was sent - Will hold off on antibiotics at this time Chronic hypoxic respiratory failure secondary to COPD - VBG done with normal pH - No signs of hypercapnia at this time - Continue steroids right now but will discontinue as able next-no significant wheeze on exam - Continue home inhalers and Roflumilast as able Elevated D-dimer - Unable to do CTA or VQ scan based on baseline renal function and abnormal CTA - Lower extremity edema present so Dopplers ordered and were unremarkable - Discontinue therapeutic Lovenox and transition to prophylactic Lovenox Chronic heart failure with reduced ejection fraction/diastolic dysfunction - Continue home metoprolol - Restart home Jardiance - If blood pressure stable tomorrow we will try to add back Entresto and back off on IV diuretics CAD - Restart home aspirin GERD - DC IV PPI and restart home oral PPI Hyperlipidemia - Restart home statin DM-2 - Continue basal insulin-May need to uptitrate back to her baseline of 20 twice daily from 15 twice daily depending on blood sugars tomorrow morning - Restart home prandial insulin - continue sliding scale Obesity - BMI 30.6 - Complicates treatment, prognosis, outcomes CODE STATUS -Full code Charges/Coding Visit Charges Inpatient E&M: 45894 Subs Hosp L2
[2025-04-03] MEDS: Magnesium Chloride 64 MG Delay Rel.Tablet 128 MG PO (22:04)
--- NOTE | 2025-04-03 22:36 | CPS ---
RN notified this [employer]ODUCTION [employer]IT[employer] of BIPAP being placed on patient
--- NOTE | 2025-04-03 22:36 | CPS ---
RN notified this [employer] of BIPAP being placed on patient
[2025-04-04] VITALS (13 sets, daily range): BP systolic 109–122; BP diastolic 53–58; PULSE 85–116; RESP 12–23; TEMP 36.4–36.9; O2SAT 94–100; BMI 30.7
[2025-04-04 07:47] LABS: Hematocrit 27.4 % (37-47); Hemoglobin 8.3 g/dL (12.0-15.0); Immature Granulocytes Count 0.050 X10^3/uL (0.0-0.0); Mean Corp Hgb Conc 30.3 g/dL (32-36); Mean Corpuscular Volume 87.3 fL (81-99); Mean Platelet Vol. 11.1 fl (6.2-12.0); NRBC Flagged by Analyzer 0.2 % (0-5); Platelet Count 275 K/mm3 (150-450); RBC Distribution Width CV 15.9 % (11.6-14.6); RBC Distribution Width SD 50.4 fl (35.1-43.9); Red Blood Count 3.14 M/mm3 (4.2-5.4); White Blood Count 10.0 K/mm3 (4.4-11.0)
[2025-04-04] MEDS: Magnesium Chloride 64 MG Delay Rel.Tablet 128 MG PO ×2 (08:10→21:18)
[2025-04-04] MEDS: ROFLUMILAST 500 MCG TABLET PO (08:11)
[2025-04-04] MEDS: Azelastine HCl NASAL.SRY 2 SPRAY NASAL (08:13)
[2025-04-04 08:21] LABS: AST(SGOT) 38 U/L (<=31); Alanine Aminotransfer ALT/SGPT 58 U/L (<=34); Albumin, Serum 3.2 g/dL (3.4-4.8); Alkaline Phosphatase 107 U/L (35-104); Anion Gap 10 (5-15); BUN 19 mg/dL (4-19); BUN/Creat Ratio 20.0 RATIO (10-20); Calcium,Total 10.4 mg/dL (7.6-11.0); Carbon Dioxide 28.5 mmol/L (21.0-32.0); Chloride 100 mmol/L (98-108); Estimated Creatinine Clearance 46.65 ml/min (50-250); Globulin 3.0 g/dL (2.2-4.2); Glucose 104 mg/dL (70-99); Potassium 3.5 mmol/L (3.3-5.1)
--- NOTE | 2025-04-04 08:54 | CASEMGMT ---
Addendum entered by Brandie Whitlock 04/04/25 10:25: Hospitalist shared pt will need bi-pap at d/c. DCA notified; to coordinate with SNF. TANIA Elizabeth Addendum entered by Brandie Whitlock 04/04/25 10:24: Abbie from [facility] will come assess pt around noon. ICU staff and RNCM notified. Pt notified. TANIA Elizabeth Original Note: Social Work- MILE received voicemail from Marley at [facility] regarding pt assessment. Assessment was scheduled for today at 12:00. Marley reports they can not assess in ICU. MILE called and left a voicemail updating that pt is PCU status and inquired if assessment can still be completed. MILE remains available to follow. Plan: HERMELINDA; pend precert TANIA Elizabeth
--- NOTE | 2025-04-04 08:54 | CASEMGMT ---
Addendum entered by Brandie Whitlock 04/04/25 10:25: Hospitalist shared pt will need bi-pap at d/c. DCA notified; to coordinate with SNF. TANIA Elizabeth Addendum entered by Brandie Whitlock 04/04/25 10:24: Abbie from [facility] will come assess pt around noon. ICU staff and RNCM notified. Pt notified. TANIA Elizabeth Original Note: Social Work- MILE received voicemail from Marley at [facility] regarding pt assessment. Assessment was scheduled for today at 12:00. Marley reports they can not assess in ICU. MILE called and left a voicemail updating that pt is PCU status and inquired if assessment can still be completed. MILE remains available to follow. Plan: HERMELINDA; pend precert TANIA Elizabeth
--- NOTE | 2025-04-04 10:31 | CASEMGMT ---
Discharge Planning Updates and Bipap settings sent to [facility]. Asked for confirmation that precert was submitted on 04/03. Awaiting response. Mariana Wilson DC Planning Asst.
--- NOTE | 2025-04-04 10:31 | CASEMGMT ---
Discharge Planning Updates and Bipap settings sent to [facility]. Asked for confirmation that precert was submitted on 04/03. Awaiting response. Mariana Wilson DC Planning Asst.
--- NOTE | 2025-04-04 11:01 | CASEMGMT ---
Discharge Planning Call rec'd from [facility] with intent to deny. P2P is being offered. [phone]. option 1. Must be completed by 3p today (04/04/25). SW updated. Mariana Wilson DC Planning Asst.
--- NOTE | 2025-04-04 11:01 | CASEMGMT ---
Discharge Planning Call rec'd from [facility] with intent to deny. P2P is being offered. [phone]. option 1. Must be completed by 3p today (04/04/25). SW updated. Mariana Wilson DC Planning Asst.
--- NOTE | 2025-04-04 16:09 | CASEMGMT ---
Social Work- SW received notice that [facility] offered peer to peer. SW updated hospitalist. Hospitalist asked SW to schedule. MILE called and spoke with Dinah at [facility] and scheduled [id number] for 2:30pm . Hospitalist updated. MILE coordinated with RNCM who will work with Hernan on bi-pap/NIV if needed for home d/c. SW spoke with hospitalist who reports that denial was upheld. Hospitalist plans to appeal. IMLE updated DCA on intent to appeal. RNCM updated as well. MILE remains available to follow. TANIA Elizabeth
--- NOTE | 2025-04-04 16:09 | CASEMGMT ---
Social Work- SW received notice that [facility] offered peer to peer. SW updated hospitalist. Hospitalist asked SW to schedule. MILE called and spoke with Dinah at [facility] and scheduled [id number] for 2:30pm . Hospitalist updated. MILE coordinated with RNCM who will work with Hernan on bi-pap/NIV if needed for home d/c. SW spoke with hospitalist who reports that denial was upheld. Hospitalist plans to appeal. MILE updated DCA on intent to appeal. RNCM updated as well. MILE remains available to follow. TANIA Elizabeth
--- NOTE | 2025-04-04 16:47 | CASEMGMT ---
Social Work Sw received a call from Mckenzie with [facility], pt had services through them prior to hospital stay. She would appreciate a call with disposition when it is confirmed: [phone]. JERSEY Wells
--- NOTE | 2025-04-04 16:47 | CASEMGMT ---
Social Work Sw received a call from Mckenzie with [facility], pt had services through them prior to hospital stay. She would appreciate a call with disposition when it is confirmed: [phone]. JERSEY Wells
--- NOTE | 2025-04-04 17:38 | PN.HOSP_ITS ---
Reason for Visit Chief Complaint: SOB. Subjective Subjective Patient states that overall she is feeling much better. Feels that BiPAP helps her significantly. She is frustrated about the denial from her insurance company. I did discuss that we did a peer to peer and I am appealing their denial. She agrees that she does not feel ready to go home. I did explain that we may not have a choice but we would try to do what we could do to get her approved. Objective Data Objective Data Vital Signs: Vital Signs Temp Pulse Resp BP Pulse Ox O2 Del Method O2 Flow Rate 97.6 F L 87 18 116/53 L 96 Bi-pap 2 04/04/25 14:43 04/04/25 14:43 04/04/25 14:43 04/04/25 14:43 04/04/25 14:43 04/04/25 14:43 04/04/25 13:56 FiO2 35 04/04/25 14:43 Oxygen Flow Rate (L/min) 2 Oxygen Delivery Method Bi-pap Weight: 78.8 kg Body Mass Index (BMI) 30.7 Intake & Output: Intake and Output for Last 24 Hours 04/02/25 04/03/25 04/04/25 23:59 23:59 23:59 Intake Total 300 / 300 530 / 530 Output Total 1600 / 1600 2875 / 2875 550 / 550 Balance -1300 / -1300 -2345 / -2345 -550 / -550 Lab / Micro Data 04/04/25 07:20 04/04/25 07:20 Labs: Laboratory Results - last 24 hr 04/03/25 11:25: POC Glucose 180 H 04/03/25 16:37: POC Glucose 237 H 04/03/25 22:06: POC Glucose 157 H 04/04/25 07:20: WBC 10.0, RBC 3.14 L, Hgb 8.3 L, Hct 27.4 L, MCV 87.3, MCH 26.4 L, MCHC 30.3 L, RDW Std Deviation 50.4 H, RDW Coeff of Vijay 15.9 H, Plt Count 275, MPV 11.1, Immature Gran % (Auto) 0.500, Neut % (Auto) 72.5 H, Lymph % (Auto) 15.0 L, [place] % (Auto) 11.2 H, Eos % (Auto) 0.7, Baso % (Auto) 0.1, Absolute Neuts (auto) 7.2, Absolute Lymphs (auto) 1.49, Nucleated RBC % 0.2, Sodium 138, Potassium 3.5, Chloride 100, Carbon Dioxide 28.5, Anion Gap 10, BUN 19, Creatinine 0.94, Estim Creat Clear Calc 46.65 L, Est GFR (MDRD) Non-Af 61, BUN/Creatinine Ratio 20.0, Glucose 104 H, Calcium 10.4, Total Bilirubin 0.22, A ST 38 H, ALT 58 H, Alkaline Phosphatase 107 H, Total Protein 6.3, Albumin 3.2 L, Globulin 3.0, Albumin/Globulin Ratio 1.1 04/04/25 08:03: POC Glucose 94 04/04/25 10:33: POC Glucose 149 H 04/04/25 16:07: POC Glucose 134 H Micro: Microbiology 04/02/25 03:53 Urine, Clean Catch Urine Culture - Final Yeast, not Nithya albicans 04/02/25 03:11 Blood Culture (Wb) - Anticubital Left Blood Culture - Preliminary No growth in 48 hours. 04/02/25 03:30 Blood Culture (Wb) - Anticubital Left Blood Culture - Preliminary No growth in 48 hours. 04/02/25 15:35 Urine Catheter - Catheter Legionella Antigen - Final 04/02/25 15:35 Urine Catheter - Catheter Streptococcus pneumoniae Antigen (M - Final 04/02/25 04:20 Mucosa - Nasopharyngeal Respiratory Panel (PCR) - Final 04/02/25 03:05 Mucosa - Nasopharyngeal SARS-CoV-2, Influenza & RSV (PCR) - Final Physical Exam Const alert, oriented x3, no apparent distress and well nourished Constitutional Narrative: Obese, elderly, -[place], female, sitting up in bed, watching television, appears comfortable, nontoxic, cooperative General Appearance: cooperative HEENT normocephalic, head/scalp atraumatic, hearing grossly normal bilaterally and moist oral mucous membranes HEENT Narrative: Dentures in place, Mallampati 2-3, no thrush Resp normal respiratory effort, no retractions, no use of accessory muscles and clear to auscultation bilaterally Resp Narrative: Very diminished but clear Auscultation: Negative for crackles, rhonchi or wheezes Cardio regular rate, regular rhythm, S1 normal heart sound, S2 normal heart sound, no murmurs, no rub, no gallops and no clicks Cardio Narrative: Tachycardia noted in the ~106 bpm range. GI normal to inspection, nondistended, normoactive bowel sounds, soft to palpation and non-tender Extremity Extremity Narrative: 1+ bilateral lower extremity pitting edema, no cyanosis or clubbing, radial pulses are 2+ bilaterally Neuro moves all extremities and no focal motor deficits Neuro Narrative: Significant proximal muscle weakness noted greater than distal, markedly decreased exercise tolerance noted Speech: speech normal Psych affect normal Psych Narrative: Very pleasant, interacts appropriately Assessment & Plan Assessment/Plan (1) Acute exacerbation of chronic heart failure: (2) Acute on chronic hypoxic respiratory failure: PLAN: Plan Acute on chronic hypoxic respiratory failure secondary to acute exacerbation of heart failure with combined systolic and diastolic dysfunction - Diuretics were decreased at last hospitalization due to hypotension from 60 mg to 20 mg daily - Suspect this is why she decompensated -BNP was markedly elevated at greater than 12,000 on presentation - Will transition off IV diuretics back to 60 mg daily - Pressures are stable at this time - EF on her echocardiogram from 01/20/2025 showed 35 to 40% with diastolic dysfunction and global hypokinesis of the LV - Continue fluid restriction - Continue I's and O's - At discharge we will plan to transition back to 60 mg daily - Highly doubt pneumonia based on clinical findings--> will discontinue antibiotics and monitor cultures closely Abnormal UA - Currently awaiting finalized culture - No bacterial growth - Does show some yeast and awaiting finalization to see if treatment needs to be pursued - Patient with no significant symptoms so we will hold off on enema microbials at this time Chronic hypoxic respiratory failure secondary to COPD - Continue home inhalers and Roflumilast as able - On baseline oxygen --Patient does not benefit from BiPAP will utilize 08/05 and see if we get her home on BiPAP Elevated D-dimer - Unable to do CTA or VQ scan based on baseline renal function and abnormal CTA - Lower extremity edema present so Dopplers ordered and were unremarkable - Discontinue therapeutic Lovenox and transition to prophylactic Lovenox Chronic heart failure with reduced ejection fraction/diastolic dysfunction - Continue home metoprolol - Continue home Jardiance - Will transition back to oral diuretics at 60 mg daily and stop IV Lasix - Will monitor for tolerance and consider reinitiation of Entresto May need dose decrease depending on blood pressure- CAD - Continue home aspirin GERD - Continue home PPI Hyperlipidemia - Continue home statin DM-2 - Continue basal insulin-May need to uptitrate back to her baseline of 20 twice daily from 15 twice daily depending on blood sugars tomorrow morning - Restart home prandial insulin - continue sliding scale Obesity - BMI 30.6 - Complicates treatment, prognosis, outcomes CODE STATUS -Full code Charges/Coding Visit Charges Inpatient E&M: 63265 Subs Hosp L2
[2025-04-04] MEDS: Budesonide Respules 0.5 MG/2 ML AMPUL.NEB. INHALATION (18:58)
[2025-04-04] MEDS: Insulin Glargine-YFGN 100 UNIT/ML Pen 15 UNIT SC (21:17)
[2025-04-05] VITALS (13 sets, daily range): BP systolic 106–109; BP diastolic 49–56; PULSE 88–108; RESP 12–26; TEMP 36.2–37; O2SAT 94–100; BMI 31.2
[2025-04-05 06:02] LABS: Hematocrit 26.7 % (37-47); Hemoglobin 8.1 g/dL (12.0-15.0); Mean Corp Hgb Conc 30.3 g/dL (32-36); Mean Corpuscular Volume 87.0 fL (81-99); Mean Platelet Vol. 11.9 fl (6.2-12.0); Platelet Count 253 K/mm3 (150-450); RBC Distribution Width CV 15.9 % (11.6-14.6); RBC Distribution Width SD 50.0 fl (35.1-43.9); Red Blood Count 3.07 M/mm3 (4.2-5.4); White Blood Count 6.7 K/mm3 (4.4-11.0)
[2025-04-05 06:58] LABS: Anion Gap 13 (5-15); BUN 17 mg/dL (4-19); BUN/Creat Ratio 20.4 RATIO (10-20); Calcium,Total 10.0 mg/dL (7.6-11.0); Carbon Dioxide 25.2 mmol/L (21.0-32.0); Chloride 100 mmol/L (98-108); Estimated Creatinine Clearance 52.64 ml/min (50-250); Glucose 55 mg/dL (70-99); Potassium 3.5 mmol/L (3.3-5.1)
[2025-04-05] MEDS: ROFLUMILAST 500 MCG TABLET PO (10:19)
[2025-04-05] MEDS: Magnesium Chloride 64 MG Delay Rel.Tablet 128 MG PO ×2 (10:19→21:09)
[2025-04-05] MEDS: Insulin Glargine-YFGN 100 UNIT/ML Pen 15 UNIT SC (11:00)
--- NOTE | 2025-04-05 11:33 | CASEMGMT ---
Social Work SW met with pt to discuss discharge plan. Pt states that she continues to feel she needs SNF placement at discharge. Pt has had multiple readmissions (6 hospitalizations and 2 ED visits since December). Pt lives at home with her son and . Pt's son works away from home during the day and her spouse has medical issues and is unable to provide any assistance to pt. Pt does not feel she is well enough to care for herself at this time and is requesting short term SNF to assist her in recovery and ability to return caring for herself. Pt is aware that insurance has denied SNF stay. Physician feels pt would benefit from SNF stay for physical rehabilitation and for respiratory support. Pt is in agreement with this. Appeal faxed to [employer] and Call placed to appeal line requesting FAST APPEAL. TANIA Weeks
--- NOTE | 2025-04-05 11:33 | CASEMGMT ---
Social Work SW met with pt to discuss discharge plan. Pt states that she continues to feel she needs SNF placement at discharge. Pt has had multiple readmissions (6 hospitalizations and 2 ED visits since December). Pt lives at home with her son and . Pt's son works away from home during the day and her spouse has medical issues and is unable to provide any assistance to pt. Pt does not feel she is well enough to care for herself at this time and is requesting short term SNF to assist her in recovery and ability to return caring for herself. Pt is aware that insurance has denied SNF stay. Physician feels pt would benefit from SNF stay for physical rehabilitation and for respiratory support. Pt is in agreement with this. Appeal faxed to [employer] and Call placed to appeal line requesting FAST APPEAL. TANIA Weeks
--- NOTE | 2025-04-05 15:00 | PN_ITS ---
Subjective Subjective Patient seen and examined with her nurse by her bedside. She is feeling better. She is on 2 L of oxygen. She was complaining of some right lower back pain. Review of systems otherwise negative. She is awaiting placement. An appeal has been filed about her SNF placement denial by insurance. She has remained hemodynamically stable. Objective Data Objective Data Vital Signs: Vital Signs Temp Pulse Resp BP Pulse Ox O2 Del Method O2 Flow Rate 98.0 F 96 24 H 108/52 L 100 Nasal Cannula 2 04/05/25 10:00 04/05/25 13:05 04/05/25 13:05 04/05/25 10:19 04/05/25 13:05 04/05/25 14:24 04/05/25 14:24 FiO2 35 04/05/25 13:05 Oxygen Flow Rate (L/min) 2 Oxygen Delivery Method Nasal Cannula Weight: 176 lb 9.444 oz Body Mass Index (BMI) 31.2 Intake & Output: Intake and Output for Last 24 Hours 04/03/25 04/04/25 04/05/25 23:59 23:59 23:59 Intake Total 530 / 530 120 / 120 420 / 420 Output Total 2875 / 2875 1750 / 1750 700 / 700 Balance -2345 / -2345 -1630 / -1630 -280 / -280 Lab / Micro Data 04/05/25 05:12 04/05/25 05:12 Labs: Laboratory Results - last 24 hr 04/04/25 16:07: POC Glucose 134 H 04/04/25 21:07: POC Glucose 207 H 04/05/25 05:12: WBC 6.7, RBC 3.07 L, Hgb 8.1 L, Hct 26.7 L, MCV 87.0, MCH 26.4 L , MCHC 30.3 L, RDW Std Deviation 50.0 H, RDW Coeff of Vijay 15.9 H, Plt Count 253, MPV 11.9, Sodium 138, Potassium 3.5, Chloride 100, Carbon Dioxide 25.2, Anion Gap 13, BUN 17, Creatinine 0.84, Estim Creat Clear Calc 52.64, Est GFR (MDRD) Non-Af 69, BUN/Creatinine Ratio 20.4 H, Glucose 55 L, Calcium 10.0 04/05/25 08:12: POC Glucose 60 L 04/05/25 10:27: POC Glucose 207 H 04/05/25 12:05: POC Glucose 266 H Micro: Microbiology 04/02/25 03:53 Urine, Clean Catch Urine Culture - Final Yeast, not Nithya albicans 04/02/25 03:11 Blood Culture (Wb) - Anticubital Left Blood Culture - Preliminary No growth in 48 hours. 04/02/25 03:30 Blood Culture (Wb) - Anticubital Left Blood Culture - Preliminary No growth in 48 hours. 04/02/25 15:35 Urine Catheter - Catheter Legionella Antigen - Final 04/02/25 15:35 Urine Catheter - Catheter Streptococcus pneumoniae Antigen (M - Final 04/02/25 04:20 Mucosa - Nasopharyngeal Respiratory Panel (PCR) - Final 04/02/25 03:05 Mucosa - Nasopharyngeal SARS-CoV-2, Influenza & RSV (PCR) - Final Physical Exam Const alert, oriented x3 and no apparent distress General Appearance: cooperative HEENT normocephalic, head/scalp atraumatic, moist oral mucous membranes and oropharynx normal Eyes PERRL and EOMs intact bilaterally Neck no lymphadenopathy and supple Lymph Lymphatic: no lymphadenopathy noted Resp Resp Narrative: mildly diminished breath sounds bibasally, no wheezes or crackles. On 2L of oxygen by nasal canula Cardio regular rate, regular rhythm, S1 normal heart sound, S2 normal heart sound and no murmurs GI normal to inspection, nondistended, normoactive bowel sounds, soft to palpation, non-tender and non-distended Extremity General Extremity: no tenderness to palpation of joints or extremities Skin General Skin Exam: no breakdown Neuro CN's II-XII intact bilaterally and no focal motor deficits Motor Exam: general weakness Psych thought process normal, cooperative and affect normal Appearance: appropriate Assessment & Plan Assessment/Plan (1) Acute on chronic hypoxic respiratory failure: (2) Acute exacerbation of chronic heart failure: PLAN: Plan #Acute on chronic hypoxic respiratory failure due to acute on chronic combined heart failure * Down to 2 L of oxygen and feeling much better. On p.o. Lasix 60 mg daily. * Has known EF of 35 to 40%. * Her diuretics were decreased during her last admission due to significant hypotension which required IV fluid boluses to help resolve the hypotension. Lasix was therefore decreased from 60 mg to 20 mg. It appears this may have tipped her into heart failure again. * She is now on her previous dose of p.o. 60 mg daily. * Monitor intake and output. Fluid restriction to 1500 cc daily. * On metoprolol and Jardiance. Entresto was discontinued at previous admission due to hypotension. Will monitor to see if Entresto can be resumed. #Abnormal urinalysis: Urine culture showed no growth. Will monitor. #COPD: On Roflumilast. On 2 L of oxygen at baseline. #Elevated D-dimer: * Unable to do CTA or VQ scan due to impaired kidney function and abnormal CTA. * Duplex of the lower extremities were negative. * Please note that she was taken off the therapeutic Lovenox and transitioned to prophylactic Lovenox. #GERD: On PPI #Hyperlipidemia: On statin #Benign essential hypertension: On metoprolol. IV hydralazine prn #Type 2 diabetes mellitus: On Lantus 15 units twice daily. Insulin sliding scale. Accu-Cheks ACHS. #History of multinodular gallbladder. Stable Charges/Coding Visit Charges Inpatient E&M: 88420 Subs Hosp L2
[2025-04-05] MEDS: morphine (oral solution) 10MG/0.5ML Syringe 2.5 MG PO (19:07)
[2025-04-05] MEDS: Budesonide Respules 0.5 MG/2 ML AMPUL.NEB. INHALATION (19:35)
[2025-04-05] MEDS: Azelastine HCl NASAL.SRY 2 SPRAY NASAL (21:08)
--- NOTE | 2025-04-05 23:40 | NURSING ---
bladder scan 328ml
--- NOTE | 2025-04-05 23:40 | NURSING ---
bladder scan 328ml
[2025-04-06] VITALS (17 sets, daily range): BP systolic 103–120; BP diastolic 49–58; PULSE 97–144; RESP 12–36; TEMP 36.2–36.7; O2SAT 97–100; BMI 31.5
[2025-04-06] MEDS: morphine (oral solution) 10MG/0.5ML Syringe 2.5 MG PO (05:29)
--- NOTE | 2025-04-06 06:09 | NURSING ---
bladder scanned about 300ml
--- NOTE | 2025-04-06 06:09 | NURSING ---
bladder scanned about 300ml
[2025-04-06] MEDS: Budesonide Respules 0.5 MG/2 ML AMPUL.NEB. INHALATION ×2 (06:54→20:08)
[2025-04-06 07:22] LABS: Hematocrit 26.4 % (37-47); Hemoglobin 8.2 g/dL (12.0-15.0); Immature Granulocytes Count 0.030 X10^3/uL (0.0-0.0); Mean Corp Hgb Conc 31.1 g/dL (32-36); Mean Corpuscular Volume 86.0 fL (81-99); Mean Platelet Vol. 11.1 fl (6.2-12.0); NRBC Flagged by Analyzer 0 % (0-5); Platelet Count 257 K/mm3 (150-450); RBC Distribution Width CV 15.9 % (11.6-14.6); RBC Distribution Width SD 49.5 fl (35.1-43.9); Red Blood Count 3.07 M/mm3 (4.2-5.4); White Blood Count 7.6 K/mm3 (4.4-11.0)
[2025-04-06 07:45] LABS: Anion Gap 11 (5-15); BUN 18 mg/dL (4-19); BUN/Creat Ratio 18.5 RATIO (10-20); Calcium,Total 10.0 mg/dL (7.6-11.0); Carbon Dioxide 26.9 mmol/L (21.0-32.0); Chloride 98 mmol/L (98-108); Estimated Creatinine Clearance 46.26 ml/min (50-250); Glucose 178 mg/dL (70-99); Potassium 4.0 mmol/L (3.3-5.1)
[2025-04-06] MEDS: Insulin Glargine-YFGN 100 UNIT/ML Pen 15 UNIT SC (08:38)
--- NOTE | 2025-04-06 08:51 | CASEMGMT ---
Social Work SW received message from [facility] at [facility] ([phone]) requesting additional information. Return call placed and SW left secure VM with the requested information. [facility] has 72 hours to complete Fast Appeal. Appeal process started on 04/05. In discussion wth pt, Pt states that she feels she does need short term SNF stay however, if she does not win appeal for SNF placement at [place], she will return home with her son and spouse. SW will await determination on appeal. TANIA Weeks
--- NOTE | 2025-04-06 08:51 | CASEMGMT ---
Social Work SW received message from [facility] at [facility] Appeals ([phone]) requesting additional information. Return call placed and SW left secure VM with the requested information. [facility] has 72 hours to complete Fast Appeal. Appeal process started on 04/05. In discussion wth pt, Pt states that she feels she does need short term SNF stay however, if she does not win appeal for SNF placement at [place], she will return home with her son and spouse. SW will await determination on appeal. TANIA Weeks
[2025-04-06] MEDS: Polyethylene Glycol 3350 17 GM PACKET PO (09:29)
[2025-04-06] MEDS: Magnesium Chloride 64 MG Delay Rel.Tablet 128 MG PO ×2 (09:34→21:15)
[2025-04-06] MEDS: ROFLUMILAST 500 MCG TABLET PO (09:35)
[2025-04-06] MEDS: Albuterol 2.5 MG/3 ML VIAL.NEB. INHALATION (09:57)
--- NOTE | 2025-04-06 14:40 | PN_ITS ---
Subjective Subjective Patient seen and examined. She had no active complaints and had an uneventful night. Review of systems is otherwise negative. She has remained hemodynamically stable. Objective Data Objective Data Vital Signs: Vital Signs Temp Pulse Resp BP Pulse Ox O2 Del Method O2 Flow Rate 97.1 F L 98 24 H 109/49 L 99 Nasal Cannula 2 04/06/25 08:34 04/06/25 12:19 04/06/25 12:19 04/06/25 08:34 04/06/25 11:01 04/06/25 14:00 04/06/25 14:00 FiO2 35 04/06/25 04:30 Oxygen Flow Rate (L/min) 2 Oxygen Delivery Method Nasal Cannula Weight: 178 lb 2.136 oz Body Mass Index (BMI) 31.5 Intake & Output: Intake and Output for Last 24 Hours 04/04/25 04/05/25 04/06/25 23:59 23:59 23:59 Intake Total 120 / 120 780 / 780 Output Total 1750 / 1750 1200 / 1200 450 / 450 Balance -1630 / -1630 -420 / -420 -450 / -450 Lab / Micro Data 04/06/25 07:05 04/06/25 07:05 Labs: Laboratory Results - last 24 hr 04/05/25 16:32: POC Glucose 201 H 04/05/25 21:14: POC Glucose 64 L 04/05/25 22:18: POC Glucose 103 04/06/25 07:05: WBC 7.6, RBC 3.07 L, Hgb 8.2 L, Hct 26.4 L, MCV 86.0, MCH 26.7 L , MCHC 31.1 L, RDW Std Deviation 49.5 H, RDW Coeff of Vijay 15.9 H, Plt Count 257, MPV 11.1, Immature Gran % (Auto) 0.400, Neut % (Auto) 70.6 H, Lymph % (Auto) 18.8 L, [place] % (Auto) 7.2, Eos % (Auto) 2.5, Baso % (Auto) 0.5, Absolute Neuts (auto) 5.4, Absolute Lymphs (auto) 1.43, Nucleated RBC % 0, Sodium 136, Potassium 4.0, Chloride 98, Carbon Dioxide 26.9, Anion Gap 11, BUN 18, Creatinine 0.96, Estim Creat Clear Calc 46.26 L, Est GFR (MDRD) Non-Af 59 L, BUN/Creatinine Ratio 18.5, Glucose 178 H, Calcium 10.0 04/06/25 08:32: POC Glucose 189 H 04/06/25 12:09: POC Glucose 149 H Micro: Microbiology 04/02/25 03:53 Urine, Clean Catch Urine Culture - Final Yeast, not Nithya albicans 04/02/25 03:11 Blood Culture (Wb) - Anticubital Left Blood Culture - Preliminary No growth in 48 hours. 04/02/25 03:30 Blood Culture (Wb) - Anticubital Left Blood Culture - Preliminary No growth in 48 hours. 04/02/25 15:35 Urine Catheter - Catheter Legionella Antigen - Final 04/02/25 15:35 Urine Catheter - Catheter Streptococcus pneumoniae Antigen (M - Final 04/02/25 04:20 Mucosa - Nasopharyngeal Respiratory Panel (PCR) - Final 04/02/25 03:05 Mucosa - Nasopharyngeal SARS-CoV-2, Influenza & RSV (PCR) - Final Physical Exam Const alert, oriented x3, no apparent distress and well nourished General Appearance: cooperative HEENT normocephalic, head/scalp atraumatic, hearing grossly normal bilaterally, moist oral mucous membranes and oropharynx normal Eyes PERRL, EOMs intact bilaterally and conjunctivae normal Neck no lymphadenopathy and supple Lymph Lymphatic: no lymphadenopathy noted Resp Resp Narrative: mildly diminished breath sounds bibasally, no wheezes or crackles. On 2L of oxygen by nasal canula. tachypneic. Cardio regular rate, regular rhythm, S1 normal heart sound, S2 normal heart sound, no murmurs, no rub, no gallops and no clicks GI normal to inspection, nondistended, normoactive bowel sounds, soft to palpation, non-tender and non-distended Extremity normal to inspection, full ROM and no clubbing, cyanosis or edema General Extremity: no tenderness to palpation of joints or extremities Skin Skin Narrative: Patient has severe chronic venous stasis changes with thickening and flaking of skin. Neuro oriented x3, CN's II-XII intact bilaterally, moves all extremities and no focal motor deficits Sensorium / Orientation: awake, alert, oriented to person, oriented to place and oriented to time Speech: speech normal Motor Exam: general weakness Psych thought process normal, cooperative and affect normal Appearance: appropriate Assessment & Plan Assessment/Plan (1) Acute on chronic hypoxic respiratory failure: (2) Acute exacerbation of chronic heart failure: PLAN: Plan #Acute on chronic hypoxic respiratory failure due to acute on chronic combined heart failure * Remains on 2 L of oxygen. On p.o. Lasix 60 mg daily. * Has known EF of 35 to 40%. * Her diuretics were decreased during her last admission due to significant hypotension which required IV fluid boluses to help resolve the hypotension. Lasix was therefore decreased from 60 mg to 20 mg. It appears this may have tipped her into heart failure again. * She is now on her previous dose of p.o. 60 mg daily. * Monitor intake and output. Fluid restriction to 1500 cc daily. * On metoprolol and Jardiance. Entresto was discontinued at previous admission due to hypotension. Will monitor to see if Entresto can be resumed. #Abnormal urinalysis: Urine culture showed no growth. Will monitor. #COPD: On Roflumilast. On 2 L of oxygen at baseline. #Elevated D-dimer: * Unable to do CTA or VQ scan due to impaired kidney function and abnormal CTA. * Duplex of the lower extremities were negative. * Please note that she was taken off the therapeutic Lovenox and transitioned to prophylactic Lovenox. #GERD: On PPI #Hyperlipidemia: On statin #Benign essential hypertension: On metoprolol. IV hydralazine prn #Type 2 diabetes mellitus: On Lantus 15 units twice daily. Insulin sliding scale. Accu-Cheks ACHS. #History of multinodular gallbladder. Stable DVT prophylaxis: lovenox sc 40mg daily Dispositino: awaiting placement. Appeal filed against insurance denial of placement. Charges/Coding Visit Charges Inpatient E&M: 59616 Subs Hosp L2
[2025-04-06] MEDS: Azelastine HCl NASAL.SRY 2 SPRAY NASAL (21:16)
[2025-04-07] VITALS (27 sets, daily range): BP systolic 100–138; BP diastolic 53–79; PULSE 98–124; RESP 12–32; TEMP 36.3–37.4; O2SAT 88–100; BMI 30.9
--- NOTE | 2025-04-07 00:51 | NURSING ---
This RN answered the phone and it was [place] dispatch. The dispatcher stated the patient called the police and requested that an officer come out to see her. The dispatcher wanted to confirm patient was on the floor and stated an officer will be out. The patient is awake and oriented x 3, but denies making the phone call. Patient states when she woke up she was confused and again states she didn't make the phone call. According to the policeman, the patient called she stated that we were going to put her in the basement. This RN showed the officers to the room and introduced them to the patient. The patient also denied making the phone call to the police officers.
--- NOTE | 2025-04-07 00:51 | NURSING ---
This RN answered the phone and it was [place] dispatch. The dispatcher stated the patient called the police and requested that an officer come out to see her. The dispatcher wanted to confirm patient was on the floor and stated an officer will be out. The patient is awake and oriented x 3, but denies making the phone call. Patient states when she woke up she was confused and again states she didn't make the phone call. According to the police magistrate, the patient called she stated that we were going to put her in the basement. This RN showed the officers to the room and introduced them to the patient. The patient also denied making the phone call to the police officers.
[2025-04-07] MEDS: morphine (oral solution) 10MG/0.5ML Syringe 2.5 MG PO (05:23)
[2025-04-07] MEDS: Budesonide Respules 0.5 MG/2 ML AMPUL.NEB. INHALATION ×2 (07:25→19:44)
[2025-04-07 07:32] LABS: Hematocrit 27.8 % (37-47); Hemoglobin 8.4 g/dL (12.0-15.0); Immature Granulocytes Count 0.030 X10^3/uL (0.0-0.0); Mean Corp Hgb Conc 30.2 g/dL (32-36); Mean Corpuscular Volume 87.4 fL (81-99); Mean Platelet Vol. 11.2 fl (6.2-12.0); NRBC Flagged by Analyzer 0 % (0-5); Platelet Count 277 K/mm3 (150-450); RBC Distribution Width CV 15.8 % (11.6-14.6); RBC Distribution Width SD 51.2 fl (35.1-43.9); Red Blood Count 3.18 M/mm3 (4.2-5.4); White Blood Count 7.2 K/mm3 (4.4-11.0)
[2025-04-07 08:14] LABS: Anion Gap 11 (5-15); BUN 18 mg/dL (4-19); BUN/Creat Ratio 19.3 RATIO (10-20); Calcium,Total 10.6 mg/dL (7.6-11.0); Carbon Dioxide 25.6 mmol/L (21.0-32.0); Chloride 98 mmol/L (98-108); Estimated Creatinine Clearance 48.31 ml/min (50-250); Glucose 113 mg/dL (70-99); Potassium 4.3 mmol/L (3.3-5.1)
[2025-04-07] MEDS: Polyethylene Glycol 3350 17 GM PACKET PO (08:53)
[2025-04-07] MEDS: ROFLUMILAST 500 MCG TABLET PO (08:53)
[2025-04-07] MEDS: Magnesium Chloride 64 MG Delay Rel.Tablet 128 MG PO ×2 (08:54→21:21)
--- NOTE | 2025-04-07 11:19 | CASEMGMT ---
Social Work Phone call placed to Sally at [facility] Appeals. VM left requesting return call to discuss status of appeal. SW will await return call. TANIA Mandujano
--- NOTE | 2025-04-07 11:19 | CASEMGMT ---
Social Work Phone call placed to Sally at [facility] Appeals. VM left requesting return call to discuss status of appeal. SW will await return call. TANIA Mandujano
[2025-04-07] MEDS: Insulin Glargine-YFGN 100 UNIT/ML Pen 15 UNIT SC ×2 (12:59→21:22)
[2025-04-07] MEDS: Albuterol 2.5 MG/3 ML VIAL.NEB. INHALATION (13:23)
--- NOTE | 2025-04-07 14:39 | PN_ITS ---
Subjective Subjective Patient seen and examined. She was a little bit more short of breath this morning and also had some tachycardia and tachypnea that he subsequently resolved during the day after she was placed on BiPAP intermittently. We are still awaiting the results of the appeal. Review of systems is negative. Objective Data Objective Data Vital Signs: Vital Signs Temp Pulse Resp BP Pulse Ox O2 Del Method O2 Flow Rate 97.8 F 98 18 100/53 L 99 Bi-pap 2 04/07/25 08:12 04/07/25 13:53 04/07/25 13:53 04/07/25 08:53 04/07/25 11:34 04/07/25 11:34 04/07/25 13:39 FiO2 35 04/07/25 11:34 Oxygen Flow Rate (L/min) 2 Oxygen Delivery Method Bi-pap Weight: 174 lb 9.698 oz Body Mass Index (BMI) 30.9 Intake & Output: Intake and Output for Last 24 Hours 04/05/25 04/06/25 04/07/25 23:59 23:59 23:59 Intake Total 780 / 780 Output Total 1200 / 1200 1600 / 1900 750 / 750 Balance -420 / -420 -1600 / -1900 -750 / -750 Lab / Micro Data 04/07/25 07:10 04/07/25 07:10 Labs: Laboratory Results - last 24 hr 04/06/25 16:41: POC Glucose 182 H 04/06/25 21:10: POC Glucose 96 04/07/25 07:10: WBC 7.2, RBC 3.18 L, Hgb 8.4 L, Hct 27.8 L, MCV 87.4, MCH 26.4 L , MCHC 30.2 L, RDW Std Deviation 51.2 H, RDW Coeff of Vijay 15.8 H, Plt Count 277, MPV 11.2, Immature Gran % (Auto) 0.400, Neut % (Auto) 66.9, Lymph % (Auto) 19.8, [place] % (Auto) 8.7, Eos % (Auto) 3.8, Baso % (Auto) 0.4, Absolute Neuts (auto) 4.8, Absolute Lymphs (auto) 1.42, Nucleated RBC % 0, Sodium 135, Potassium 4.3, Chloride 98, Carbon Dioxide 25.6, Anion Gap 11, BUN 18, Creatinine 0.91, Estim Creat Clear Calc 48.31 L, Est GFR (MDRD) Non-Af 63, BUN/Creatinine Ratio 19.3, G lucose 113 H, Calcium 10.6 04/07/25 11:54: POC Glucose 302 H Micro: Microbiology 04/02/25 03:30 Blood Culture (Wb) - Anticubital Left Blood Culture - Final No growth in 5 days. 04/02/25 03:11 Blood Culture (Wb) - Anticubital Left Blood Culture - Final No growth in 5 days. 04/02/25 03:53 Urine, Clean Catch Urine Culture - Final Yeast, not Nithya albicans 04/02/25 15:35 Urine Catheter - Catheter Legionella Antigen - Final 04/02/25 15:35 Urine Catheter - Catheter Streptococcus pneumoniae Antigen (M - Final 04/02/25 04:20 Mucosa - Nasopharyngeal Respiratory Panel (PCR) - Final 04/02/25 03:05 Mucosa - Nasopharyngeal SARS-CoV-2, Influenza & RSV (PCR) - Final Physical Exam Const alert, oriented x3 and no apparent distress General Appearance: cooperative HEENT normocephalic, head/scalp atraumatic, hearing grossly normal bilaterally, moist oral mucous membranes and oropharynx normal Eyes PERRL, EOMs intact bilaterally and conjunctivae normal Neck no lymphadenopathy and supple Lymph Lymphatic: no lymphadenopathy noted Resp clear to auscultation bilaterally Resp Narrative: mildly diminished breath sounds bibasally, no wheezes or crackles. Tachypneic today. Requiring BiPAP intermittently. Cardio regular rhythm, S1 normal heart sound, S2 normal heart sound and no murmurs Cardio Narrative: Tachycardic GI normal to inspection, nondistended, normoactive bowel sounds, soft to palpation and non-tender Extremity normal to inspection, full ROM and no clubbing, cyanosis or edema Extremity Narrative: 1+ bilateral lower extremity pitting edema, no cyanosis or clubbing, radial pulses are 2+ bilaterally General Extremity: no tenderness to palpation of joints or extremities Skin Skin Narrative: Patient has severe chronic venous stasis changes with thickening and flaking of skin. General Skin Exam: no breakdown Neuro oriented x3, CN's II-XII intact bilaterally, moves all extremities and no focal motor deficits Sensorium / Orientation: awake, alert, oriented to person, oriented to place and oriented to time Speech: speech normal Motor Exam: general weakness Psych thought process normal, cooperative and affect normal Appearance: appropriate Assessment & Plan Assessment/Plan (1) Acute on chronic hypoxic respiratory failure: (2) Acute exacerbation of chronic heart failure: PLAN: Plan #Acute on chronic hypoxic respiratory failure due to acute on chronic combined heart failure * Remains on 2 L of oxygen. On p.o. Lasix 60 mg daily. * Has known EF of 35 to 40%. * Her diuretics were decreased during her last admission due to significant hypotension which required IV fluid boluses to help resolve the hypotension. Lasix was therefore decreased from 60 mg to 20 mg. It appears this may have tipped her into heart failure again. * She is now on her previous dose of p.o. 60 mg daily. * Monitor intake and output. Fluid restriction to 1500 cc daily. * On metoprolol and Jardiance. Entresto was discontinued at previous admission due to hypotension. Will monitor to see if Entresto can be resumed. * She was tachycardic and tachypneic today and had to be put on BiPAP. She also required BiPAP intermittently during this admission. There was talk about whether she would need BiPAP on discharge which she would need to follow with operations research engineer to be evaluated to see if she does need BiPAP on outpatient basis. #COPD: On Roflumilast. On 2 L of oxygen at baseline but has required BiPAP intermittently. #Elevated D-dimer: * Unable to do CTA or VQ scan due to impaired kidney function and abnormal CTA. * Duplex of the lower extremities were negative. * #GERD: On PPI #Hyperlipidemia: On statin #Benign essential hypertension: On metoprolol. IV hydralazine prn #Type 2 diabetes mellitus: On Lantus 15 units twice daily. Insulin sliding scale. Accu-Cheks ACHS. #History of multinodular gallbladder. Stable DVT prophylaxis: lovenox sc 40mg daily Dispositino: awaiting placement. Appeal filed against insurance denial of placement. Charges/Coding Visit Charges Inpatient E&M: 15786 Subs Hosp L2
--- NOTE | 2025-04-07 15:47 | CASEMGMT ---
Discharge Planning [facility] updated that pt will likely discharge over the weekend. Green Sheet completed. Mariana Wilson DC Planning Asst.
--- NOTE | 2025-04-07 15:47 | CASEMGMT ---
Discharge Planning [facility] updated that pt will likely discharge over the weekend. Green Sheet completed. Mariana Wilson DC Planning Asst.
--- NOTE | 2025-04-07 16:03 | CASEMGMT ---
Social Work Phone call received from Sally at [facility] and denial for SNF was overturned and pt is approved to admit to [facility]. [facility] updated and can accept pt. Physician notified and pt will be ready for dc tomorrow. SW met with pt and informed of above and pt is agreeable. With pt permission, phone call to son and and updated on dc plan. PASRR completed in HENS. Green sheet placed on chart to facilitate weekend discharge. Plan: [place], when medically ready TANIA Mandujano
--- NOTE | 2025-04-07 16:03 | CASEMGMT ---
Social Work Phone call received from Sally at [facility] and denial for SNF was overturned and pt is approved to admit to [facility]. [facility] updated and can accept pt. Physician notified and pt will be ready for dc tomorrow. SW met with pt and informed of above and pt is agreeable. With pt permission, phone call to son and and updated on dc plan. PASRR completed in HENS. Green sheet placed on chart to facilitate weekend discharge. Plan: [place], when medically ready TANIA Mandujano
[2025-04-07] MEDS: Glucerna Shake 120 ML LIQUID PO (17:52)
[2025-04-07] MEDS: NETARSUDIL MESYLAT/LATANOPROST 2.5 ML DROPS 1 DRP EACH EYE (21:20)
[2025-04-07] MEDS: 0.9% Saline Lock 10 ML Syringe IV (21:21)
--- NOTE | 2025-04-07 23:10 | EKG12_ITS ---
Test Reason : CHANGES Blood Pressure : */* mmHG Vent. Rate : 99 BPM Atrial Rate : 99 BPM P-R Int : 142 ms QRS Dur : 88 ms QT Int : 344 ms P-R-T Axes : 56 48 15 degrees QTcB Int : 441 ms Normal sinus rhythm Nonspecific ST and T wave abnormality Abnormal ECG When compared with ECG of 02-Apr-2025 03:03, Aberrant conduction is no longer Present ST elevation now present in Anterior leads Nonspecific T wave abnormality, worse in Anterior leads Confirmed by KELSEA LEARY, ANN ([id number]), drafter automotive design MIKE MATTHEW ([id number]) on 04/10/2025 1:02:31 PM Referred By: Confirmed By: ANN ENAMORADO MD
--- NOTE | 2025-04-07 23:10 | EKG12_ITS ---
Test Reason : CHANGES Blood Pressure : */* mmHG Vent. Rate : 99 BPM Atrial Rate : 99 BPM P-R Int : 142 ms QRS Dur : 88 ms QT Int : 344 ms P-R-T Axes : 56 48 15 degrees QTcB Int : 441 ms Normal sinus rhythm Nonspecific ST and T wave abnormality Abnormal ECG When compared with ECG of 02-Apr-2025 03:03, Aberrant conduction is no longer Present ST elevation now present in Anterior leads Nonspecific T wave abnormality, worse in Anterior leads Confirmed by KELSEA LEAYR, ANN ([id number]), proposal editor MIKE MATTHEW ([id number]) on 04/10/2025 1:02:31 PM Referred By: Confirmed By: ANN ENAMORADO MD
[2025-04-08] VITALS (12 sets, daily range): BP systolic 109–124; BP diastolic 66–77; PULSE 88–99; RESP 12–28; TEMP 36.7–37.1; O2SAT 90–100; BMI 30.7
[2025-04-08 06:33] LABS: Hematocrit 26.8 % (37-47); Hemoglobin 8.1 g/dL (12.0-15.0); Immature Granulocytes Count 0.030 X10^3/uL (0.0-0.0); Mean Corp Hgb Conc 30.2 g/dL (32-36); Mean Corpuscular Volume 86.2 fL (81-99); Mean Platelet Vol. 11.2 fl (6.2-12.0); NRBC Flagged by Analyzer 0 % (0-5); Platelet Count 307 K/mm3 (150-450); RBC Distribution Width CV 16.0 % (11.6-14.6); RBC Distribution Width SD 50.5 fl (35.1-43.9); Red Blood Count 3.11 M/mm3 (4.2-5.4); White Blood Count 6.6 K/mm3 (4.4-11.0)
[2025-04-08] MEDS: Budesonide Respules 0.5 MG/2 ML AMPUL.NEB. INHALATION (06:41)
[2025-04-08 06:52] LABS: Anion Gap 11 (5-15); BUN 21 mg/dL (4-19); BUN/Creat Ratio 20.9 RATIO (10-20); Calcium,Total 11.0 mg/dL (7.6-11.0); Carbon Dioxide 26.7 mmol/L (21.0-32.0); Chloride 98 mmol/L (98-108); Estimated Creatinine Clearance 42.97 ml/min (50-250); Glucose 106 mg/dL (70-99); Potassium 4.7 mmol/L (3.3-5.1)
[2025-04-08] MEDS: Azelastine HCl NASAL.SRY 2 SPRAY NASAL (07:42)
[2025-04-08] MEDS: Magnesium Chloride 64 MG Delay Rel.Tablet 128 MG PO (07:44)
[2025-04-08] MEDS: ROFLUMILAST 500 MCG TABLET PO (07:47)
[2025-04-08] MEDS: Insulin Glargine-YFGN 100 UNIT/ML Pen 15 UNIT SC (07:48)
[2025-04-08] MEDS: Polyethylene Glycol 3350 17 GM PACKET PO (07:48)
--- NOTE | 2025-04-08 13:07 | TREXTCAR_ITS ---
Diet Diet Order/Speech Therapy: INPATIENT Hospital Diet / Speech Therapy Order(s) 04/02/25 07:52 Diet: Cardiac: Calorie-Controlled Food consistency:: Regular Liquid Consistency:: Regular/Thin Fluid restriction:: 1500 mL How many daily calories?: 1800 calorie Routine Orders/Code Status Enema Type: Fleetz Enema Frequency: Daily PRN DC O2, CPAP, BIPAP needs Home O2 Discharge instructions: Yes Type of respiratory needs?: Oxygen Oxygen frequency: Continuous Continuous oxygen liters per minute: 2 Therapies Weight Bearing: Weight bearing as tolerated Physical Therapy: Eval and Treat Occupational Therapy: Eval and Treat Problem/Diagnosis (1) Acute on chronic hypoxic respiratory failure: Status: Chronic Code(s): J96.21 - Acute and chronic respiratory failure with hypoxia (2) Acute exacerbation of chronic heart failure: Status: Acute Code(s): I50.9 - Heart failure, unspecified Plan #Acute on chronic hypoxic respiratory failure due to acute on chronic combined heart failure * Remains on 2 L of oxygen. On p.o. Lasix 60 mg daily. * Has known EF of 35 to 40%. * Her diuretics were decreased during her last admission due to significant hypotension which required IV fluid boluses to help resolve the hypotension. Lasix was therefore decreased from 60 mg to 20 mg. It appears this may have tipped her into heart failure again. * She is now on her previous dose of p.o. 60 mg daily. * Monitor intake and output. Fluid restriction to 1500 cc daily. * On metoprolol and Jardiance. Entresto was discontinued at previous admission due to hypotension. Will monitor to see if Entresto can be resumed. * She was tachycardic and tachypneic today and had to be put on BiPAP. She also required BiPAP intermittently during this admission. There was talk about whether she would need BiPAP on discharge which she would need to follow with newspaper distributor supervisor to be evaluated to see if she does need BiPAP on outpatient basis. #COPD: On Roflumilast. On 2 L of oxygen at baseline but has required BiPAP intermittently. #Elevated D-dimer: * Unable to do CTA or VQ scan due to impaired kidney function and abnormal CTA. * Duplex of the lower extremities were negative. * #GERD: On PPI #Hyperlipidemia: On statin #Benign essential hypertension: On metoprolol. IV hydralazine prn #Type 2 diabetes mellitus: On Lantus 15 units twice daily. Insulin sliding scale. Accu-Cheks ACHS. #History of multinodular gallbladder. Stable DVT prophylaxis: lovenox sc 40mg daily Dispositino: awaiting placement. Appeal filed against insurance denial of placement. 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 Will order glucerna shake 4x/day w/ medpass for increased nutrition if consumed May need to consider more aggressive nutrition support if remains on bipap w/ no po intake - will monitor and make rec as indicated. Discharge Plan Admission Admit Date/Time: 04/02/25 05:16 Primary Reason for Your Visit: acute on chronic HF Attending Provider: Melba Hartmann Primary Care Provider: Ramone Smiley Consulting Providers: Sandeep Carlton; Maria Alejandra Mendez Instructions Patient Instructions: Coping with Heart Failure Discharge Orders/Prescriptions Prescriptions: New furosemide 20 mg Tablet 60 mg PO DAILY Qty: 90 2RF metoprolol tartrate 25 mg Tablet 25 mg PO BID Qty: 60 2RF Continued Januvia 50 mg tablet 50 mg PO DAILY Jardiance 10 mg tablet 10 mg PO DAILY multivitamin Tablet 1 tab PO DAILY pravastatin 20 mg tablet 20 mg PO DAILY aspirin 81 MG tablet,chewable 81 mg PO DAILY magnesium oxide 400 MG tablet 400 mg PO BID pantoprazole 40 MG tablet 40 mg PO DAILY roflumilast 500 mcg tablet 500 mcg PO DAILY ascorbic acid (vitamin C) [Vitamin C] 250 mg tablet 250 mg PO DAILY insulin lispro [Humalog KwikPen Insulin] 100 unit/mL Insulin Pen 10 unit subcut TIDAC Rx Instructions: Hold if glucose less than 120 mg/dl Mounjaro 5 mg/0.5 mL pen injector 5 mg subcut QWEEK Patient Comments: PT STATes she takes on mondays menthol-zinc oxide [CalaSoothe] 0.44-20.6 % ointment 1 applic topical 4X/DAY PRN (Reason: skin irritation) psyllium husk [Daily Fiber] 0.4 gram capsule 0.4 g PO DAILY mecobalamin (vitamin B12) [B12 Active] 1,000 mcg tablet,chewable 1,000 mcg PO DAILY azelastine 137 mcg (0.1 %) spray,non-aerosol 1 - 2 spray INTRANASAL BID acetaminophen 500 mg Tablet 1,000 mg PO Q6H PRN (Reason: Pain Score 1-3) Rocklatan 0.02-0.005 % Drops 1 drp EACH EYE DAILY potassium chloride [K-Tab] 20 mEq tablet extended release 20 meq PO BID ipratropium-albuterol 0.5 mg-3 mg(2.5 mg base)/3 mL Solution For Nebulization 3 ml inhalation Q6H.RT Qty: 120 0RF albuterol sulfate 90 mcg/actuation HFA aerosol inhaler 2 puff inhalation Q6H PRN (Reason: shortness of breath or wheezing) cetirizine 10 mg tablet 10 mg PO DAILY hydroxyzine HCl 25 mg tablet 12.5 mg PO QHS guaifenesin [Mucinex] 600 mg Tablet Extended Release 12hr 600 mg PO BID Qty: 0 0RF gabapentin 100 mg capsule 100 mg PO QHS 3 Days Qty: 3 0RF ipratropium bromide 21 mcg (0.03 %) spray,non-aerosol 1 - 2 spray INTRANASAL Q6H PRN (Reason: allergy symptoms) insulin glargine [Lantus Solostar U-100 Insulin] 100 unit/mL (3 mL) insulin pen 20 unit subcut BID (DME) lancets [TRUEplus Lancets] 28 gauge misc MISCELLANEOUS Breztri Aerosphere 160-9-4.8 mcg/actuation HFA aerosol inhaler 2 inh inhalation BID diazepam 2 mg tablet 2 mg PO BID PRN (Reason: muscle spasm) Qty: 10 0RF Entresto 24-26 mg Tablet 1 tab PO BID Qty: 60 2RF Discontinued furosemide [Lasix] 20 mg tablet 20 mg PO DAILY Qty: 30 2RF metoprolol tartrate 25 mg tablet 12.5 mg PO BID Qty: 30 2RF doxycycline hyclate 100 mg tablet 100 mg PO BID Qty: 14 0RF Referrals / Follow Up: Ramone Smiley MD [Primary Care Provider] - Todd Jasmine DO [Med Staff - Active Staff] - Within 1 Month (see to be evaluated for BIPAP) Disposition Disposition (needs filled in before D/C Order can be placed): Custodial Facility
--- NOTE | 2025-04-08 13:08 | DS.PCM_ITS ---
Providers Date of Admission: 04/02/25 Date of Discharge: 04/08/25 Primary Care Physician: Dr. Ramone Smiley MD Reason For Visit: ACURE RESPIRATORY FAILURE Diagnosis Discharge Diagnosis (1) Acute on chronic hypoxic respiratory failure: Status: Chronic Code(s): J96.21 - Acute and chronic respiratory failure with hypoxia (2) Acute exacerbation of chronic heart failure: Status: Acute Code(s): I50.9 - Heart failure, unspecified Plan #Acute on chronic hypoxic respiratory failure due to acute on chronic combined heart failure * Remains on 2 L of oxygen. On p.o. Lasix 60 mg daily. * Has known EF of 35 to 40%. * Her diuretics were decreased during her last admission due to significant hypotension which required IV fluid boluses to help resolve the hypotension. Lasix was therefore decreased from 60 mg to 20 mg. It appears this may have tipped her into heart failure again. * She is now on her previous dose of p.o. 60 mg daily. * Monitor intake and output. Fluid restriction to 1500 cc daily. * On metoprolol and Jardiance. Entresto was discontinued at previous admission due to hypotension. Will monitor to see if Entresto can be resumed. * She was tachycardic and tachypneic today and had to be put on BiPAP. She also required BiPAP intermittently during this admission. There was talk about whether she would need BiPAP on discharge which she would need to follow with software applications developer to be evaluated to see if she does need BiPAP on outpatient basis. #COPD: On Roflumilast. On 2 L of oxygen at baseline but has required BiPAP intermittently. #Elevated D-dimer: * Unable to do CTA or VQ scan due to impaired kidney function and abnormal CTA. * Duplex of the lower extremities were negative. * #GERD: On PPI #Hyperlipidemia: On statin #Benign essential hypertension: On metoprolol. IV hydralazine prn #Type 2 diabetes mellitus: On Lantus 15 units twice daily. Insulin sliding scale. Accu-Cheks ACHS. #History of multinodular gallbladder. Stable DVT prophylaxis: lovenox sc 40mg daily Dispositino: awaiting placement. Appeal filed against insurance denial of placement. Medications at Discharge Home Medications aspirin 81 mg chewable tablet 81 mg PO DAILY [facility] 05/23/16 magnesium oxide 400 mg (241.3 mg magnesium) tablet 400 mg PO BID SUPPLEMENT 08/16/18 pantoprazole 40 mg tablet,delayed release 40 mg PO DAILY ACID REFLUX 12/02/19 empagliflozin 10 mg tablet (Jardiance) 10 mg PO DAILY DIABETES 10/18/20 sitagliptin phosphate 50 mg tablet (Januvia) 50 mg PO DAILY DIABETES 10/18/20 multivitamin 1 tab PO DAILY VITAMIN 12/06/21 pravastatin 20 mg tablet 20 mg PO DAILY CHOLESTEROL 12/06/21 ascorbic acid (vitamin C) 250 mg tablet (Vitamin C) 250 mg PO DAILY SUPPLEMENT 08/13/23 roflumilast 500 mcg tablet 500 mcg PO DAILY COPD 08/13/23 insulin lispro 100 unit/mL subcutaneous pen (Humalog KwikPen (U-100) Insulin) 10 unit subcut TIDAC short acting insulin 12/30/23 budesonide 160 mcg-glycopyr 9 mcg-formot 4.8 mcg/actuation HFA inhaler (Breztri Aerosphere) 2 inh inhalation BID breathing 01/07/25 insulin glargine 100 unit/mL (3 mL) subcutaneous pen (Lantus Solostar U-100 Insulin) 20 unit subcut BID diabetes 01/07/25 ipratropium bromide 21 mcg (0.03 %) nasal spray 1 - 2 spray intranasal Q6H PRN allergy symptoms 01/07/25 lancets 28 gauge (TRUEplus Lancets) 01/07/25 acetaminophen 500 mg tablet 1,000 mg PO Q6H PRN Pain Score 1-3 01/15/25 azelastine 137 mcg (0.1 %) nasal spray 1 - 2 spray intranasal BID nasal spray 01/15/25 mecobalamin (vitamin B12) 1,000 mcg chewable tablet (B12 Active) 1,000 mcg PO DAILY health maintenance 01/15/25 menthol 0.44 %-zinc oxide 20.6 % topical ointment (CalaSoothe) 1 applic topical 4X/DAY PRN skin irritation 01/15/25 netarsudil 0.02 %-latanoprost 0.005 % eye drops (Rocklatan) 1 drp EACH EYE DAILY eye drops 01/15/25 psyllium husk 0.4 gram capsule (Daily Fiber) 0.4 g PO DAILY constipation 05/18/25 tirzepatide 5 mg/0.5 mL subcutaneous pen injector (Mounjaro) 5 mg subcut QWEEK diabetes 01/15/25 potassium chloride 20 mEq tablet,extended release (K-Tab) 20 meq PO BID supplement 02/04/25 ipratropium 0.5 mg-albuterol 3 mg (2.5 mg base)/3 mL nebulization soln 3 ml inhalation Q6H.RT sob #120 amps 02/06/25 albuterol sulfate 90 mcg/actuation aerosol inhaler 2 puff inhalation Q6H PRN shortness of breath or wheezing 02/09/25 cetirizine 10 mg tablet 10 mg PO DAILY allergy 02/09/25 hydroxyzine HCl 25 mg tablet 12.5 mg PO QHS allergies 02/09/25 gabapentin 100 mg capsule 100 mg PO QHS NERVE PAIN 3 days #3 caps 02/17/25 guaifenesin 600 mg tablet, extended release 12 hr (Mucinex) 600 mg PO BID cough #0 tabs 02/17/25 diazepam 2 mg tablet 2 mg PO BID PRN muscle spasm #10 TABLETS 03/21/25 sacubitril 24 mg-valsartan 26 mg tablet (Entresto) 1 tab PO BID #60 tabs 03/25/25 furosemide 20 mg tablet 60 mg (3 x 20 mg) PO DAILY #90 tabs 04/08/25 metoprolol tartrate 25 mg tablet 25 mg PO BID #60 tabs 04/08/25 Hospital Course Operations None Summary of Care Provided Minutes Spent on Discharge: 45 Hospital Course: Patient is an 80 y/o with an extensive PMH as outlined who was admitted via the ED On 04/08/2025 with a complaint of shortness of breath which had began 2 days prior to admission and gradually worsened. Patient had recently been admitted in [place] for similar complaints from March 21 to March 26. During that admission she also experienced significant low blood pressure requiring IV boluses. Her Lasix was therefore cut down from 60 mg to 20 mg daily and her metoprolol was also decreased from 25 mg twice daily to 12.5 mg twice daily. However she says after she went home started getting more short of breath worsened and so she called the EMS. When EMS arrived she was saturating at 60% on nonrebreather mask. She also complained of bilateral lower extremity edema. Chest x-ray showed interval development of asymmetric edema interval development of diffuse lung opacities with relative sparing of the right upper lobe but not in the cardiac region. She was admitted to be managed for acute on chronic hypoxic respiratory failure requiring BiPAP likely due to acute on chronic exacerbation of heart failure with reduced ejection fraction. She was admitted to the ICU and started on IV Lasix diuresis. Her D-dimer was also elevated but she could not have a CTA or VQ scan due to her underlying abnormal renal function and underlying lung pathology. She was initially started on therapeutic Lovenox per Dr. Sacks of the lower extremities were ordered and were negative so the therapeutic Lovenox was discontinued. His shortness of breath gradually improved with the diuresis and she was transferred out of the ICU to the PCU. She was resumed on her previous dose of Lasix 60 mg daily and her metoprolol was also increased to 25 mg twice daily due to her heart rate be poorly controlled. Patient was deemed as needing placement in care home facility. However subsequently her placement was denied by insurance. An appeal was launched and appeal was eventually successful. Patient was therefore discharged to the care home facility on 04/08/2025. Patient was seen and examined with her nurse by her bedside on day of discharge. She felt well and had no complaints. She denied any shortness of breath, chest pain, palpitations, nausea vomiting or any other symptoms. Review of systems otherwise negative. Labs and vitals reviewed. Home medication reviewed and reconciled. Physical Exam Const alert, oriented x3 and no apparent distress General Appearance: cooperative and comfortable HEENT normocephalic, head/scalp atraumatic, hearing grossly normal bilaterally and moist oral mucous membranes Mouth: oral and palatal mucosa normal Eyes PERRL, EOMs intact bilaterally and conjunctivae normal Neck no lymphadenopathy and supple Lymph Lymphatic: no lymphadenopathy noted Resp Resp Narrative: mildly diminished breath sounds bibasally, no wheezes or crackles. on 2L of oxygen by nasal canula Cardio regular rate, regular rhythm, S1 normal heart sound and S2 normal heart sound GI normal to inspection, nondistended, normoactive bowel sounds, soft to palpation, non-tender and non-distended Extremity normal to inspection, full ROM and no clubbing, cyanosis or edema General Extremity: no tenderness to palpation of joints or extremities Skin Skin Narrative: Patient has severe chronic venous stasis changes General Skin Exam: no breakdown Neuro oriented x3, CN's II-XII intact bilaterally, moves all extremities and no focal motor deficits Sensorium / Orientation: awake, alert, oriented to person, oriented to place and oriented to time Speech: speech normal Motor Exam: general weakness Psych thought process normal, cooperative and affect normal Appearance: appropriate Weight / BMI Weight Weight: 173 lb 8.061 oz Body Mass Index (BMI) 30.7 ABG / Lab / Microbiology Data 04/08/25 05:18 04/08/25 05:18 Laboratory: Laboratory Results - last 24 hr 04/07/25 17:27: POC Glucose 96 04/07/25 21:14: POC Glucose 158 H 04/07/25 22:13: POC Glucose 149 H 04/08/25 05:18: WBC 6.6, RBC 3.11 L, Hgb 8.1 L, Hct 26.8 L, MCV 86.2, MCH 26.0 L , MCHC 30.2 L, RDW Std Deviation 50.5 H, RDW Coeff of Vijay 16.0 H, Plt Count 307, MPV 11.2, Immature Gran % (Auto) 0.500, Neut % (Auto) 60.0, Lymph % (Auto) 25.4, [place] % (Auto) 10.6 H, Eos % (Auto) 2.7, Baso % (Auto) 0.8, Absolute Neuts (auto) 4.0, Absolute Lymphs (auto) 1.68, Nucleated RBC % 0, Sodium 135, Potassium 4.7, Chloride 98, Carbon Dioxide 26.7, Anion Gap 11, BUN 21 H, Creatinine 1.02, Estim Creat Clear Calc 42.97 L, Est GFR (MDRD) Non-Af 55 L, BUN/Creatinine Ratio 20.9 H, Glucose 106 H, Calcium 11.0 Microbiology: Microbiology 04/02/25 03:30 Blood Culture (Wb) - Anticubital Left Blood Culture - Final No growth in 5 days. 04/02/25 03:11 Blood Culture (Wb) - Anticubital Left Blood Culture - Final No growth in 5 days. 04/02/25 03:53 Urine, Clean Catch Urine Culture - Final Yeast, not Nithya albicans 04/02/25 15:35 Urine Catheter - Catheter Legionella Antigen - Final 04/02/25 15:35 Urine Catheter - Catheter Streptococcus pneumoniae Antigen (M - Final 04/02/25 04:20 Mucosa - Nasopharyngeal Respiratory Panel (PCR) - Final 04/02/25 03:05 Mucosa - Nasopharyngeal SARS-CoV-2, Influenza & RSV (PCR) - Final D/C Instructions Discharge Activity: Return to Normal Activity DC O2, CPAP, BIPAP Needs Home O2 Discharge instructions: Yes Type of respiratory needs?: Oxygen Oxygen frequency: Continuous Continuous oxygen liters per minute: 2 DC home with Oxygen: Yes Home O2 MD Review: I have reviewed the oxygen testing, and the patient qualifies for home oxygen equipment and portability. The patient is mobile in the home and the community. Meaningful Use Info Meaningful Use Meaningful Use Diagnoses (Choose all that apply): CHF CHF ALBA/ARB ordered at discharge?: Yes Documented LVEF (%): 40 Discharge Plan Admission Admit Date/Time: 04/02/25 05:16 Primary Reason for Your Visit: acute on chronic HF Attending Provider: Melba Hartmann Primary Care Provider: Ramone Smiley Consulting Providers: Sandeep Carlton; Maria Alejandra Mendez Instructions Patient Instructions: Coping with Heart Failure Discharge Orders/Prescriptions Prescriptions: New furosemide 20 mg Tablet 60 mg PO DAILY Qty: 90 2RF metoprolol tartrate 25 mg Tablet 25 mg PO BID Qty: 60 2RF Continued Januvia 50 mg tablet 50 mg PO DAILY Jardiance 10 mg tablet 10 mg PO DAILY multivitamin Tablet 1 tab PO DAILY pravastatin 20 mg tablet 20 mg PO DAILY aspirin 81 MG tablet,chewable 81 mg PO DAILY magnesium oxide 400 MG tablet 400 mg PO BID pantoprazole 40 MG tablet 40 mg PO DAILY roflumilast 500 mcg tablet 500 mcg PO DAILY ascorbic acid (vitamin C) [Vitamin C] 250 mg tablet 250 mg PO DAILY insulin lispro [Humalog KwikPen Insulin] 100 unit/mL Insulin Pen 10 unit subcut TIDAC Rx Instructions: Hold if glucose less than 120 mg/dl Mounjaro 5 mg/0.5 mL pen injector 5 mg subcut QWEEK Patient Comments: PT STATes she takes on mondays menthol-zinc oxide [CalaSoothe] 0.44-20.6 % ointment 1 applic topical 4X/DAY PRN (Reason: skin irritation) psyllium husk [Daily Fiber] 0.4 gram capsule 0.4 g PO DAILY mecobalamin (vitamin B12) [B12 Active] 1,000 mcg tablet,chewable 1,000 mcg PO DAILY azelastine 137 mcg (0.1 %) spray,non-aerosol 1 - 2 spray INTRANASAL BID acetaminophen 500 mg Tablet 1,000 mg PO Q6H PRN (Reason: Pain Score 1-3) Rocklatan 0.02-0.005 % Drops 1 drp EACH EYE DAILY potassium chloride [K-Tab] 20 mEq tablet extended release 20 meq PO BID ipratropium-albuterol 0.5 mg-3 mg(2.5 mg base)/3 mL Solution For Nebulization 3 ml inhalation Q6H.RT Qty: 120 0RF albuterol sulfate 90 mcg/actuation HFA aerosol inhaler 2 puff inhalation Q6H PRN (Reason: shortness of breath or wheezing) cetirizine 10 mg tablet 10 mg PO DAILY hydroxyzine HCl 25 mg tablet 12.5 mg PO QHS guaifenesin [Mucinex] 600 mg Tablet Extended Release 12hr 600 mg PO BID Qty: 0 0RF gabapentin 100 mg capsule 100 mg PO QHS 3 Days Qty: 3 0RF ipratropium bromide 21 mcg (0.03 %) spray,non-aerosol 1 - 2 spray INTRANASAL Q6H PRN (Reason: allergy symptoms) insulin glargine [Lantus Solostar U-100 Insulin] 100 unit/mL (3 mL) insulin pen 20 unit subcut BID (DME) lancets [TRUEplus Lancets] 28 gauge misc MISCELLANEOUS Breztri Aerosphere 160-9-4.8 mcg/actuation HFA aerosol inhaler 2 inh inhalation BID diazepam 2 mg tablet 2 mg PO BID PRN (Reason: muscle spasm) Qty: 10 0RF Entresto 24-26 mg Tablet 1 tab PO BID Qty: 60 2RF Discontinued furosemide [Lasix] 20 mg tablet 20 mg PO DAILY Qty: 30 2RF metoprolol tartrate 25 mg tablet 12.5 mg PO BID Qty: 30 2RF doxycycline hyclate 100 mg tablet 100 mg PO BID Qty: 14 0RF Referrals / Follow Up: Todd Jasmine DO [Med Staff - Active Staff] - Within 1 Month (see to be evaluated for BIPAP) Ramone Smiley MD [Primary Care Provider] - Disposition Disposition (needs filled in before D/C Order can be placed): [facility] Charges/Coding Visit Charges Inpatient E&M: 86529 Disch Hosp >30min
== END 2025-04-08 16:28 | disposition skilled nursing facility (03) | DRG 291 ==
LOC: ED 04:28 → ICU 04:38 → PCU 04-04 16:51
PROVIDERS: Internal Medicine; Admitting Provider Internal Medicine; Emergency Provider Emergency Medicine; PCP Family Medicine; Visit Provider Student in an Organized Health Care Education/Training Program
DX: I13.0 Hypertensive heart and chronic kidney disease with heart failure and stage 1 through stage 4 chronic kidney disease, or unspecified chronic kidney disease (principal); J96.21 Acute and chronic respiratory failure with hypoxia; I50.43 Acute on chronic combined systolic (congestive) and diastolic (congestive) heart failure; J44.9 Chronic obstructive pulmonary disease, unspecified; E11.22 Type 2 diabetes mellitus with diabetic chronic kidney disease; N18.31 Chronic kidney disease, stage 3a; Z68.32 Body mass index [BMI] 32.0-32.9, adult; E11.51 Type 2 diabetes mellitus with diabetic peripheral angiopathy without gangrene; E11.42 Type 2 diabetes mellitus with diabetic polyneuropathy; Z79.4 Long term (current) use of insulin; K21.9 Gastro-esophageal reflux disease without esophagitis; E78.5 Hyperlipidemia, unspecified; I25.10 Atherosclerotic heart disease of native coronary artery without angina pectoris; K59.04 Chronic idiopathic constipation; Z99.81 Dependence on supplemental oxygen; E66.9 Obesity, unspecified; N31.9 Neuromuscular dysfunction of bladder, unspecified; R79.1 Abnormal coagulation profile; R82.998 Other abnormal findings in urine; Z79.82 Long term (current) use of aspirin; Z79.84 Long term (current) use of oral hypoglycemic drugs; Z79.85 Long-term (current) use of injectable non-insulin antidiabetic drugs; Z79.899 Other long term (current) drug therapy; Z87.891 Personal history of nicotine dependence
CPT/HCPCS: 36415; 36600; 71045; 71260; 80048; 80053; 81001; 82803; 82962; 83605; 83735; 83880; 84100; 84443; 85018; 85025; 85027; 85379; 85610; 85730; 87040; 87086; 87088; 87449; 87631; 87633; 92526; 92610; 93005; 93970; 94002; 94003; 94640; 94762; 97162; 97166; 97530; 97535; 97802; 99252; 99285; P9047; Q9967; A4216; G0463; J1938

== ENCOUNTER 2025-04-11 09:11 | Emergency (ER) | payer MEDICARE, SELFPAY ==
[2025-04-11] VITALS (13 sets, daily range): BP systolic 94–152; BP diastolic 44–114; PULSE 82–104; RESP 16–30; TEMP 36.6–37; O2SAT 68–100; BMI 31.8
--- NOTE | 2025-04-11 09:17 | EKG12_ITS ---
Test Reason : ABNORMAL LABS Blood Pressure : */* mmHG Vent. Rate : 89 BPM Atrial Rate : 89 BPM P-R Int : 144 ms QRS Dur : 80 ms QT Int : 360 ms P-R-T Axes : 67 51 265 degrees QTcB Int : 438 ms Normal sinus rhythm ST & T wave abnormality, consider lateral ischemia Abnormal ECG Baseline artifact Confirmed by Carlos Moore [id number]), international editorial producer ATTILA ESPINO ([id number]) on 04/12/2025 9:36:29 AM Referred By: Confirmed By: Carlos Moore
--- NOTE | 2025-04-11 09:25 | EX.ED.DYSGE1 ---
HPI History of Present Illness Chief Complaint: Abn Labs Informant: patient and EMS Narrative Narrative: 80-year-old female sent to the ER from [facility] for high potassium, on labs done this morning. Staff states that no report was given to them, but EMS reported that she was just sent for an EKG. The patient states she is feeling a little more short of breath than usual, but otherwise she feels fine. She denies any chest discomfort or syncope. She states she always feels short of breath. She has some pain in her right low back that is not new. She states she received her meds this morning. [facility] Medical History COPD exacerbation Acute UTI Back muscle spasm Former smoker On home oxygen therapy Osteoporosis History of diabetes mellitus COPD exacerbation Hypoxia Elevated troponin Acute dyspnea COPD with exacerbation Anemia History of COPD Elevated brain natriuretic peptide (BNP) level Elevated troponin Acute hypoxemic respiratory failure Obesity (BMI 30.0-34.9) Elevated troponin Lactic acidosis Poor venous access Diabetic polyneuropathy Hypomagnesemia Debility Fracture of hip, left, closed Coronary artery disease Weakness Gastroenteritis Paronychia of left index finger Abscess Vaginal cyst Anxiety Depression Irregular heart beat Multiple thyroid nodules Postmenopausal bleeding Foraminal stenosis of lumbar region Lumbar spinal stenosis Diabetic retinopathy Colon polyp GERD (gastroesophageal reflux disease) Thyroid goiter Hyperlipidemia Hypokalemia Microcytic anemia Neurogenic bladder Hypophosphatemia Hypercalcemia Former smoker UTI (urinary tract infection) Iron deficiency anemia Aortic stenosis Hyponatremia Urine retention Chronic renal failure, stage 3 (moderate) Cellulitis and abscess of finger, unspecified Retinopathy Peripheral artery disease Leg weakness, bilateral GERD (gastroesophageal reflux disease) Chronic idiopathic constipation COPD (chronic obstructive pulmonary disease) Polypharmacy Hypertension Carpal tunnel syndrome of right wrist Strain of right rotator cuff capsule Rhinitis Urinary retention with incomplete bladder emptying Vitamin D deficiency Asthma Pruritus Goiter, nontoxic, multinodular Anemia Diabetes COPD (chronic obstructive pulmonary disease) History of constipation Hx of venous thrombosis and embolism History of malignant neoplasm of breast Hypertension Type 2 diabetes mellitus Asthma Home Medications ?Medication ?Instructions ?Recorded ?Last Taken ?Type aspirin 81 mg chewable tablet 81 mg PO DAILY HEART HEALTH 01/21/16 01/15/25 History magnesium oxide 400 mg (241.3 mg 400 mg PO BID SUPPLEMENT 08/16/18 01/15/25 History magnesium) tablet pantoprazole 40 mg tablet,delayed 40 mg PO DAILY ACID REFLUX 12/02/19 01/15/25 History release empagliflozin 10 mg tablet 10 mg PO DAILY DIABETES 10/18/20 01/15/25 History (Jardiance) sitagliptin phosphate 50 mg tablet 50 mg PO DAILY DIABETES 10/18/20 01/15/25 History (Januvia) multivitamin 1 tab PO DAILY VITAMIN 12/06/21 01/15/25 History pravastatin 20 mg tablet 20 mg PO DAILY CHOLESTEROL 12/06/21 01/15/25 History ascorbic acid (vitamin C) 250 mg 250 mg PO DAILY SUPPLEMENT 08/13/23 01/15/25 History tablet (Vitamin C) roflumilast 500 mcg tablet 500 mcg PO DAILY COPD 08/13/23 01/15/25 History insulin lispro 100 unit/mL 10 unit subcut TIDAC short acting 12/30/23 01/15/25 History subcutaneous pen (Humalog KwikPen insulin (U-100) Insulin) budesonide 160 mcg-glycopyr 9 2 inh inhalation BID breathing 01/07/25 01/15/25 History mcg-formot 4.8 mcg/actuation HFA inhaler (Breztri Aerosphere) insulin glargine 100 unit/mL (3 20 unit subcut BID diabetes 01/07/25 01/15/25 History mL) subcutaneous pen (Lantus Solostar U-100 Insulin) ipratropium bromide 21 mcg (0.03 1 - 2 spray intranasal Q6H PRN 01/07/25 Unknown History %) nasal spray allergy symptoms lancets 28 gauge (TRUEplus Lancets) 01/07/25 Unknown History acetaminophen 500 mg tablet 1,000 mg PO Q6H PRN Pain Score 1-3 01/15/25 Unknown History azelastine 137 mcg (0.1 %) nasal 1 - 2 spray intranasal BID nasal 01/15/25 01/15/25 History spray spray mecobalamin (vitamin B12) 1,000 1,000 mcg PO DAILY health 01/15/25 01/15/25 History mcg chewable tablet (B12 Active) maintenance menthol 0.44 %-zinc oxide 20.6 % 1 applic topical 4X/DAY PRN skin 01/15/25 Unknown History topical ointment (CalaSoothe) irritation netarsudil 0.02 %-latanoprost 1 drp EACH EYE DAILY eye drops 01/15/25 01/15/25 History 0.005 % eye drops (Rocklatan) psyllium husk 0.4 gram capsule 0.4 g PO DAILY constipation 01/15/25 01/15/25 History (Daily Fiber) tirzepatide 5 mg/0.5 mL 5 mg subcut QWEEK diabetes 01/15/25 Unknown History subcutaneous pen injector (Mounjaro) potassium chloride 20 mEq 20 meq PO BID supplement 02/04/25 Unknown History tablet,extended release (K-Tab) Held on 04/11/25. Instructions: until told otherwise ipratropium 0.5 mg-albuterol 3 mg 3 ml inhalation Q6H.RT sob #120 02/06/25 Unknown Rx (2.5 mg base)/3 mL nebulization amps soln albuterol sulfate 90 mcg/actuation 2 puff inhalation Q6H PRN 02/09/25 Unknown History aerosol inhaler shortness of breath or wheezing cetirizine 10 mg tablet 10 mg PO DAILY allergy 02/09/25 Unknown History hydroxyzine HCl 25 mg tablet 12.5 mg PO QHS allergies 02/09/25 Unknown History gabapentin 100 mg capsule 100 mg PO QHS NERVE PAIN 3 days 02/17/25 Unknown Rx #3 caps guaifenesin 600 mg tablet, 600 mg PO BID cough #0 tabs 02/17/25 Unknown Rx extended release 12 hr (Mucinex) sacubitril 24 mg-valsartan 26 mg 1 tab PO BID #60 tabs 03/25/25 Unknown Rx tablet (Entresto) diazepam 2 mg tablet 2 mg PO BID PRN muscle spasm #10 04/08/25 Unknown Rx TABLETS furosemide 20 mg tablet 60 mg (3 x 20 mg) PO DAILY #90 tabs 04/08/25 Unknown Rx metoprolol tartrate 25 mg tablet 25 mg PO BID #60 tabs 04/08/25 Unknown Rx Allergy/AdvReac Type Severity Reaction Status Date / Time adhesive tape (tape) Allergy NEEDS Verified 04/11/25 09:12 FOLLOW-UP cephalexin monohydrate (From Allergy Rash Verified 04/11/25 09:12 Keflex) clopidogrel bisulfate (From Allergy Other Verified 04/11/25 09:12 Plavix) oxycodone AdvReac Severe made me Verified 04/11/25 09:12 really crazy called regional guide on people amoxicillin AdvReac YEAST Verified 04/11/25 09:12 INFECTION Family History Daughter Breast cancer Father Hypertension Sister Cancer Kidney disease Mother Pancreatic cancer Surgical History History of left hip hemiarthroplasty S/P fine needle aspiration (~10/2020) H/O dilation and curettage (~07/10/20) History of Achilles tendon repair Retinopathy History of lumpectomy of left breast Social History household members: spouse Smoking Status: Former smoker alcohol intake: never substance use type: does not use caffeine: Yes what type of physical activity do you participate in: none seatbelt use: always do you feel safe at home: Yes additional social history: [employer]- retired ROS ROS ED Constitutional Constitutional ED: Denies chills or fever(s) Eyes Eyes: Denies change in vision or diplopia ENT ENT ED: Denies rhinorrhea or sore throat Cardiovascular Cardiovascular: Denies chest pain or palpitations Respiratory/Chest Respiratory/Chest: Reports dyspnea; Denies cough Gastrointestinal Gastrointestinal: Denies abdominal pain, diarrhea, nausea or vomiting Genitourinary Genitourinary ED: Denies dysuria or hematuria Musculoskeletal Musculoskeletal: Reports back pain; Denies neck pain Integumentary Denies abscess or rash Neurologic Neurologic: Denies headache(s), paresthesias or weakness Psychiatric Psychiatric: Denies suicidal thoughts EXAM Physical Exam Const Vital Signs: 04/11/25 09:12 04/11/25 09:17 04/11/25 09:49 Temperature 98.6 F Temperature Source Oral Pulse Rate 93 87 Respiratory Rate 24 H 19 H Respiratory Effort Normal Respiratory Pattern Normal Normal Blood Pressure 109/55 L Blood Pressure Mean 73 Pulse Ox 100 Oxygen Delivery Method Nasal Cannula Oxygen Flow Rate (L/min) 4 04/11/25 10:12 04/11/25 11:00 04/11/25 12:39 Temperature Temperature Source Pulse Rate 87 82 90 Respiratory Rate 16 18 19 H Respiratory Effort Respiratory Pattern Blood Pressure 99/64 94/78 96/44 L Blood Pressure Mean 75 83 61 Pulse Ox 100 98 95 Oxygen Delivery Method Nasal Cannula Room Air Oxygen Flow Rate (L/min) 2 04/11/25 13:15 04/11/25 13:31 04/11/25 13:41 Temperature Temperature Source Pulse Rate 102 H Respiratory Rate 20 H Respiratory Effort Respiratory Pattern Blood Pressure 152/114 H Blood Pressure Mean 128 Pulse Ox 68 79 98 Oxygen Delivery Method Nasal Cannula Oxygen Flow Rate (L/min) 2 04/11/25 13:42 04/11/25 13:45 04/11/25 14:00 Temperature Temperature Source Pulse Rate 102 H 104 H 97 Respiratory Rate 22 H 30 H Respiratory Effort Respiratory Pattern Blood Pressure 112/64 102/59 L 96/50 L Blood Pressure Mean 79 73 65 Pulse Ox 97 97 97 Oxygen Delivery Method Nasal Cannula Nasal Cannula Oxygen Flow Rate (L/min) 2 04/11/25 15:05 04/11/25 15:06 Temperature 97.9 F Temperature Source Pulse Rate 83 83 Respiratory Rate 18 18 Respiratory Effort Respiratory Pattern Blood Pressure 97/58 L 97/58 L Blood Pressure Mean 71 71 Pulse Ox 98 98 Oxygen Delivery Method Room Air Oxygen Flow Rate (L/min) Positive well nourished and well developed General Appearance ED: well developed and NAD HEENT Reports moist mucous membranes normocephalic and atraumatic Eyes PERRL and EOMs intact bilaterally Neck full ROM and supple Resp Resp Narrative: Tachypneic and grunting. Lungs are diminished throughout symmetrically otherwise fairly clear, but limited evaluation since patient is not able to sit up even with assistance because of pain in her back, so she rolls to the side and I have limited access to her back. Cardio regular rate, regular rhythm and no murmurs GI non-tender and non-distended Auscultation: normoactive bowel sounds Palpation: soft Back/Spine no CVA tenderness General Back: other FROM Extremity normal to inspection General Extremety ED: Yes edema; Negative for pulses abnormal or tenderness General Extremity: edema bilateral lower extremity Details: mild; Negative for pulses abnormal Neuro oriented x3, CN's II-XII intact bilaterally and no sensory deficits noted Sensorium / Orientation: awake and alert Motor Exam: general weakness Skin no rashes or lesions noted and no wounds MDM MDM MDM Narrative Medical decision making narrative: I reviewed the medication list from the [facility]. Includes furosemide as well as potassium supplementation. I reviewed her old labs. Today she has a potassium of 6.2, and a creatinine that is 1.24, little elevated compared with normal, 1.02 3 days ago, BUN elevated as well compared with baseline. We gave her a dose of Kayexalate after doing an EKG that shows no signs of hyperkalemia, nurses were unable to get an IV in order to give her a fluid bolus which is my intent, so instead we had her drink some fluid and we kept her here longer and then later did a repeat basic metabolic panel, the results of which I reviewed are below. Potassium now 5.3, creatinine down a little to 1.22. Patient is doing fine. I think she can be discharged and to stop the potassium supplementation at least temporarily. Discussed with Dr. Nicholas who agrees. Lab Data Attestation: I reviewed the patient's lab results. Labs: Laboratory Results - last 24 hr 04/11/25 13:15 Sodium 136 Potassium 5.3 H Chloride 100 Carbon Dioxide 25.5 Anion Gap 10 BUN 27 H Creatinine 1.22 H Estim Creat Clear Calc 36.57 L Est GFR (MDRD) Non-Af 45 L BUN/Creatinine Ratio 22.2 H Glucose 97 Calcium 10.7 Radiography Diagnostic Testing: Clinical Impression(s) from Imaging Studies Chest X-Ray 04/11/25 09:40 IMPRESSION: Interstitial and alveolar edema. Airspace opacity left lower lobe likely atelectasis and small volume pleural fluid. Reading Location: [facility] Rhythm Strip Rhythm Strip: Sinus Rhythm Rate: 90 Ectopy: None EKG Initial EKG: Attestation: I personally reviewed and interpreted this EKG as follows: Interpretation: Sinus Rhythm, No Acute Injury Pattern and Non-Specific ST Changes Comments: No peaked T waves, QRS is narrow Management Discussion w/another healthcare provider: PCP Discharge Plan Triage Chief Complaint: Abn Labs ED Provider: Aj Holley Dx/Rx/DC Orders Clinical Impression: Acute hyperkalemia, Acute renal insufficiency Instructions: ED Hyperkalemia Prescriptions: Continued Januvia 50 mg tablet 50 mg PO DAILY Jardiance 10 mg tablet 10 mg PO DAILY multivitamin Tablet 1 tab PO DAILY pravastatin 20 mg tablet 20 mg PO DAILY aspirin 81 MG tablet,chewable 81 mg PO DAILY magnesium oxide 400 MG tablet 400 mg PO BID pantoprazole 40 MG tablet 40 mg PO DAILY roflumilast 500 mcg tablet 500 mcg PO DAILY ascorbic acid (vitamin C) [Vitamin C] 250 mg tablet 250 mg PO DAILY insulin lispro [Humalog KwikPen Insulin] 100 unit/mL Insulin Pen 10 unit subcut TIDAC Rx Instructions: Hold if glucose less than 120 mg/dl Mounjaro 5 mg/0.5 mL pen injector 5 mg subcut QWEEK Patient Comments: PT STATes she takes on mondays menthol-zinc oxide [CalaSoothe] 0.44-20.6 % ointment 1 applic topical 4X/DAY PRN (Reason: skin irritation) psyllium husk [Daily Fiber] 0.4 gram capsule 0.4 g PO DAILY mecobalamin (vitamin B12) [B12 Active] 1,000 mcg tablet,chewable 1,000 mcg PO DAILY azelastine 137 mcg (0.1 %) spray,non-aerosol 1 - 2 spray INTRANASAL BID acetaminophen 500 mg Tablet 1,000 mg PO Q6H PRN (Reason: Pain Score 1-3) Rocklatan 0.02-0.005 % Drops 1 drp EACH EYE DAILY ipratropium-albuterol 0.5 mg-3 mg(2.5 mg base)/3 mL Solution For Nebulization 3 ml inhalation Q6H.RT Qty: 120 0RF albuterol sulfate 90 mcg/actuation HFA aerosol inhaler 2 puff inhalation Q6H PRN (Reason: shortness of breath or wheezing) cetirizine 10 mg tablet 10 mg PO DAILY hydroxyzine HCl 25 mg tablet 12.5 mg PO QHS guaifenesin [Mucinex] 600 mg Tablet Extended Release 12hr 600 mg PO BID Qty: 0 0RF gabapentin 100 mg capsule 100 mg PO QHS 3 Days Qty: 3 0RF ipratropium bromide 21 mcg (0.03 %) spray,non-aerosol 1 - 2 spray INTRANASAL Q6H PRN (Reason: allergy symptoms) insulin glargine [Lantus Solostar U-100 Insulin] 100 unit/mL (3 mL) insulin pen 20 unit subcut BID (DME) lancets [TRUEplus Lancets] 28 gauge misc MISCELLANEOUS Breztri Aerosphere 160-9-4.8 mcg/actuation HFA aerosol inhaler 2 inh inhalation BID Entresto 24-26 mg Tablet 1 tab PO BID Qty: 60 2RF furosemide 20 mg Tablet 60 mg PO DAILY Qty: 90 2RF metoprolol tartrate 25 mg Tablet 25 mg PO BID Qty: 60 2RF diazepam 2 mg tablet 2 mg PO BID PRN (Reason: muscle spasm) Qty: 10 0RF Held potassium chloride [K-Tab] 20 mEq tablet extended release 20 meq PO BID Hold Instructions: until told otherwise Primary Care Provider: Axel Nicholas Referrals: Axel Nicholas MD [Primary Care Provider] - As soon as possible Print Language: Albanian Disposition Disposition: Home, Self Care
--- NOTE | 2025-04-11 09:40 | RAD_ITS ---
PROCEDURE: CHEST 1 VIEW (PORTABLE) 04/11/2025 REASON FOR EXAM: SOB TECHNIQUE: Frontal view of the chest. COMPARISON: April 02, 2025 FINDINGS: Hardware: None Heart: The heart is enlarged. Aorta is atherosclerotic. Lungs: Mixed interstitial and airspace opacity in the perihilar and lower lungs. Atelectasis or airspace disease left lung base with scant left pleural fluid. No pneumothorax. Bones: Degenerative changes are identified within the thoracic spine. RAD/Chest 1 View (Portable) IMPRESSION: Interstitial and alveolar edema. Airspace opacity left lower lobe likely atele ctasis and small volume pleural fluid. Reading Location: [id number]
--- NOTE | 2025-04-11 12:40 | ED.RN ---
DIFFICULTY OBTAINING BLOOD WORK. LAB CALLED FOR STRAIGHT STICK TO OBTAIN REPEAT BMP
--- NOTE | 2025-04-11 12:58 | ED.RN ---
LAB IN ROOM ATTEMPTING TO OBTAIN BLOOD WORK
--- NOTE | 2025-04-11 13:03 | ED.RN ---
CALLED REQUESTING AN UPDATE ON THE PATIENT. PER PT. REQUEST UPDATE WAS PROVIDED
[2025-04-11 14:04] LABS: Anion Gap 10 (5-15); BUN 27 mg/dL (4-19); BUN/Creat Ratio 22.2 RATIO (10-20); Calcium,Total 10.7 mg/dL (7.6-11.0); Carbon Dioxide 25.5 mmol/L (21.0-32.0); Chloride 100 mmol/L (98-108); Estimated Creatinine Clearance 36.57 ml/min (50-250); Glucose 97 mg/dL (70-99); Potassium 5.3 mmol/L (3.3-5.1)
== END 2025-04-11 16:00 | disposition home or self-care (01) ==
PROVIDERS: Emergency Provider Emergency Medicine; PCP Internal Medicine; Visit Provider Emergency Medicine
DX: E87.5 Hyperkalemia (principal); J44.9 Chronic obstructive pulmonary disease, unspecified; E11.42 Type 2 diabetes mellitus with diabetic polyneuropathy; Z79.4 Long term (current) use of insulin; E11.22 Type 2 diabetes mellitus with diabetic chronic kidney disease; N18.30 Chronic kidney disease, stage 3 unspecified; I12.9 Hypertensive chronic kidney disease with stage 1 through stage 4 chronic kidney disease, or unspecified chronic kidney disease; I25.10 Atherosclerotic heart disease of native coronary artery without angina pectoris; Z79.51 Long term (current) use of inhaled steroids; Z79.82 Long term (current) use of aspirin; Z79.84 Long term (current) use of oral hypoglycemic drugs; Z79.899 Other long term (current) drug therapy; Z87.891 Personal history of nicotine dependence
CPT/HCPCS: 99285; 71045; 80048; 93005; 94640; P9612; A4216

== ENCOUNTER 2025-04-13 08:16 | Inpatient (IN) | payer MEDICARE, SELFPAY ==
[2025-04-13] VITALS (19 sets, daily range): BP systolic 81–147; BP diastolic 54–130; PULSE 87–112; RESP 22–37; TEMP 36.1–37.3; O2SAT 93–100; BMI 31.5; BMI 30.7
--- NOTE | 2025-04-13 08:32 | EDS_ITS ---
HPI History of Present Illness Chief Complaint: Shortness of Breath Narrative Narrative: 80-year-old female history of COPD on 3 L via nasal cannula at baseline, diabetes, CAD, CHF presents emergency department for complaint of shortness of breath. Patient states over the past couple days she has been experiencing more shortness of breath wheezing and congestion. Does have intermittent cough. Denies any fevers, leg edema, chest pain. Has been using home nebulizers without relief. Patient called EMS and they had given her albuterol en route to the ED. [facility] Medical History COPD exacerbation Acute UTI Back muscle spasm Former smoker On home oxygen therapy Osteoporosis History of diabetes mellitus COPD exacerbation Hypoxia Elevated troponin Acute dyspnea COPD with exacerbation Anemia History of COPD Elevated brain natriuretic peptide (BNP) level Elevated troponin Acute hypoxemic respiratory failure Obesity (BMI 30.0-34.9) Elevated troponin Lactic acidosis Poor venous access Diabetic polyneuropathy Hypomagnesemia Debility Fracture of hip, left, closed Coronary artery disease Weakness Gastroenteritis Paronychia of left index finger Abscess Vaginal cyst Anxiety Depression Irregular heart beat Multiple thyroid nodules Postmenopausal bleeding Foraminal stenosis of lumbar region Lumbar spinal stenosis Diabetic retinopathy Colon polyp GERD (gastroesophageal reflux disease) Thyroid goiter Hyperlipidemia Hypokalemia Microcytic anemia Neurogenic bladder Hypophosphatemia Hypercalcemia Former smoker UTI (urinary tract infection) Iron deficiency anemia Aortic stenosis Hyponatremia Urine retention Chronic renal failure, stage 3 (moderate) Cellulitis and abscess of finger, unspecified Retinopathy Peripheral artery disease Leg weakness, bilateral GERD (gastroesophageal reflux disease) Chronic idiopathic constipation COPD (chronic obstructive pulmonary disease) Polypharmacy Hypertension Carpal tunnel syndrome of right wrist Strain of right rotator cuff capsule Rhinitis Urinary retention with incomplete bladder emptying Vitamin D deficiency Asthma Pruritus Goiter, nontoxic, multinodular Anemia Diabetes COPD (chronic obstructive pulmonary disease) History of constipation Hx of venous thrombosis and embolism History of malignant neoplasm of breast Hypertension Type 2 diabetes mellitus Asthma Home Medications ?Medication ?Instructions ?Recorded ?Last Taken ?Type aspirin 81 mg chewable tablet 81 mg PO DAILY HEART HEA LTH 01/21/16 01/15/25 History magnesium oxide 400 mg (241.3 mg 400 mg PO BID SUPPLEM ENT 08/16/18 01/15/25 History magnesium) tablet pantoprazole 40 mg tablet,delayed 40 mg PO DAILY ACID REFLUX 12/02/19 01/15/25 History release empagliflozin 10 mg tablet 10 mg PO DAILY DIABETES 01/15/25 History (Jardiance) sitagliptin phosphate 50 mg tablet 50 mg PO DAILY DIAB ETES 10/18/20 01/15/25 History (Januvia) multivitamin 1 tab PO DAILY VITAMIN 12/0601/15/25 History pravastatin 20 mg tablet 20 mg PO DAILY CHOLESTEROL 0 12/06/21 01/15/25 History ascorbic acid (vitamin C) 250 mg 250 mg PO DAILY SUPPL EMENT 08/13/23 01/15/25 History tablet (Vitamin C) roflumilast 500 mcg tablet 500 mcg PO DAILY COPD 08/1301/15/25 History insulin lispro 100 unit/mL 10 unit subcut TIDAC short acting 12/30/23 01/15/25 History subcutaneous pen (Humalog KwikPen insulin (U-100) Insulin) Held on 04/13/25. Instructions: MD Ordered budesonide 160 mcg-glycopyr 9 2 inh inhalation BID franklyn athing 01/07/25 01/15/25 History mcg-formot 4.8 mcg/actuation HFA inhaler (Breztri Aerosphere) insulin glargine 100 unit/mL (3 20 unit subcut BID marco a betes 01/07/25 01/15/25 History mL) subcutaneous pen (Lantus Solostar U-100 Insulin) ipratropium bromide 21 mcg (0.03 1 - 2 spray intranasa l Q6H PRN 01/07/25 Unknown History %) nasal spray allergy symptoms lancets 28 gauge (TRUEplus Lancets) 01/07/25 Unknown History acetaminophen 500 mg tablet 1,000 mg PO Q6H PRN Pain S core 1-3 01/15/25 Unknown History azelastine 137 mcg (0.1 %) nasal 1 - 2 spray intranasa l BID nasal 01/15/25 01/15/25 History spray spray mecobalamin (vitamin B12) 1,000 1,000 mcg PO DAILY hea lth 01/15/25 01/15/25 History mcg chewable tablet (B12 Active) maintenance menthol 0.44 %-zinc oxide 20.6 % 1 applic topical 4X/D AY PRN skin 01/15/25 Unknown History topical ointment (CalaSoothe) irritation netarsudil 0.02 %-latanoprost 1 drp EACH EYE DAILY eye drops 01/15/25 01/15/25 History 0.005 % eye drops (Rocklatan) psyllium husk 0.4 gram capsule 0.4 g PO DAILY constipa tion 01/15/25 01/15/25 History (Daily Fiber) tirzepatide 5 mg/0.5 mL 5 mg subcut QWEEK diabetes 0 01/15/25 Unknown History subcutaneous pen injector (Mounjaro) potassium chloride 20 mEq 20 meq PO BID supplement 03/24 Unknown History tablet,extended release (K-Tab) ipratropium 0.5 mg-albuterol 3 mg 3 ml inhalation Q6H. RT sob #120 02/06/25 Unknown Rx (2.5 mg base)/3 mL nebulization amps soln albuterol sulfate 90 mcg/actuation 2 puff inhalation Q 6H PRN 02/09/25 Unknown History aerosol inhaler shortness of breath or wheez ing cetirizine 10 mg tablet 10 mg PO DAILY allergy 02/09 Unknown History hydroxyzine HCl 25 mg tablet 12.5 mg PO QHS allergies 02/09/25 Unknown History gabapentin 100 mg capsule 100 mg PO QHS NERVE PAIN 3 days 02/17/25 Unknown Rx #3 caps guaifenesin 600 mg tablet, 600 mg PO BID cough #0 tabs 02/17/25 Unknown Rx extended release 12 hr (Mucinex) sacubitril 24 mg-valsartan 26 mg 1 tab PO BID #60 tabs 03/25/25 Unknown Rx tablet (Entresto) furosemide 20 mg tablet 60 mg (3 x 20 mg) PO DAILY # 90 tabs 04/08/25 Unknown Rx metoprolol tartrate 25 mg tablet 25 mg PO BID #60 tabs 04/08/25 Unknown Rx diazepam 2 mg tablet 2 mg PO BID muscle spasm Unknown History Allergy/AdvReac Type Severity Reaction Status Date / Time adhesive tape (tape) Allergy NEEDS Verified 04/13/25 08:41 FOLLOW-UP cephalexin monohydrate (From Allergy Rash Verified 04/13/25 08:41 Keflex) clopidogrel bisulfate (From Allergy Other Verified 04/13/25 08:41 Plavix) oxycodone AdvReac Severe made me Verified 04/13/25 08:41 really crazy 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 amoxicillin AdvReac YEAST Verified 04/13/25 08:41 INFECTION Family History Daughter Breast cancer Father Hypertension Sister Cancer Kidney disease Mother Pancreatic cancer Surgical History History of left hip hemiarthroplasty S/P fine needle aspiration (~10/2020) H/O dilation and curettage (~07/10/20) History of Achilles tendon repair Retinopathy History of lumpectomy of left breast Social History household members: spouse Smoking Status: Former smoker alcohol intake: never substance use type: does not use caffeine: Yes what type of physical activity do you participate in: none seatbelt use: always do you feel safe at home: Yes additional social history: [employer]- retired EXAM Physical Exam Const Vital Signs: 04/13/25 08:18 04/13/25 08:22 04/13/25 08:43 Temperature 99 F 99 F Temperature Source Oral Oral Pulse Rate 107 H 104 H Respiratory Rate 34 H 25 H Respiratory Effort Respiratory Depth Respiratory Pattern Blood Pressure 147/130 H 108/55 L Blood Pressure Mean 135 72 Pulse Ox 100 100 Oxygen Delivery Method Simple Mask Simple Mask Simple Mask Oxygen Flow Rate (L/min) 3 04/13/25 08:43 04/13/25 08:48 04/13/25 08:48 Temperature Temperature Source Pulse Rate 112 H Respiratory Rate 26 H Respiratory Effort Accessory Muscle Use Respiratory Depth Shallow Respiratory Pattern Tachypnea Blood Pressure Blood Pressure Mean Pulse Ox 100 Oxygen Delivery Method Simple Mask Simple Mask Oxygen Flow Rate (L/min) 3 04/13/25 09:25 04/13/25 10:02 04/13/25 10:52 Temperature 99.1 F 99.1 F Temperature Source Oral Pulse Rate 108 H 97 Respiratory Rate 37 H 29 H Respiratory Effort Respiratory Depth Respiratory Pattern Blood Pressure 95/56 L 145/117 H Blood Pressure Mean 69 126 Pulse Ox 99 98 Oxygen Delivery Method Nasal Cannula Oxygen Flow Rate (L/min) 3 Positive obese General Appearance ED: other lethargic Nutritional Appearance: obese HEENT Reports moist mucous membranes Eyes PERRL Neck supple and no JVD Chest Wall palpation of chest normal Resp Resp Narrative: on baseline O2 requirement of 3L via simple mask Effort and Inspection: other some accessory muscle use Auscultation: wheezes expiratory wheezes and diminished lung sounds bilateral (bases) Cardio regular rhythm and no murmurs Rate: tachycardic GI Inspection: Negative for abdominal distention Palpation: soft; Negative for tender Extremity General Extremety ED: Negative for edema General Extremity: Negative for edema Neuro oriented x3 Sensorium / Orientation: alert Sepsis Attestation Sepsis Alert: Yes Sepsis Attestation: Agree w/Sepsis Date exam was performed: 04/13/25 Time exam was performed: 09:45 Possible Source of Sepsis: Pulmonary Sepsis Organ Dysfunction Criteria Present: SBP < 90 mmHg or MAP < 65 mmHg Supportive Findings: SIRS criteria met with tachypnea, tachycardia and lactate 2.0 Fluid Resuscitation Fluid Resuscitation ordered: Lesser volume fluid bolus ordered Amount of fluid ordered: 1,000 (mL) Reason for lesser fluid bolus:: Concern for fluid overload, Heart failure and BP Responded to a lesser volume Sepsis Note Sepsis Attestation: Sepsis re-evaluation was performed Response to fluids: Fluid responsive hypotension MDM MDM MDM Narrative Medical decision making narrative: 80-year-old female history of COPD on 3 L via nasal cannula at baseline, diabetes, CAD, CHF presents emergency department for complaint of shortness of breath. Patient states over the past couple days she has been experiencing more shortness of breath wheezing and congestion. Does have intermittent cough. Denies any fevers, leg edema, chest pain. Has been using home nebulizers without relief. On physical exam patient was noted to have end expiratory wheezing with decreased lung sounds bilateral bases. Patient is using accessory muscle use however she is on baseline oxygen requirement 3 L. Initially tachycardic however patient did receive albuterol treatment prior to arrival. We have been giving DuoNebs along with Solu-Medrol for suspected COPD exacerbation. However on chart review patient does have a history of CHF and pleural effusions. Patient denying any history of blood clots. Chest x-ray independently interpreted by myself showing evidence of pulmonary edema largely unchanged from 04/11. BNP does appear largely elevated at 32,000. This along with chest x-ray suspect CHF exacerbation. Patient's pressures soft in the high 80s to low 90s. Do not feel that diuresis can be done at this time due to low blood pressure. Patient also having elevated lactate meeting SIRS criteria started 1 L IV fluid along with ceftriaxone and Zithromax for concern of COPD with end expiratory wheezing on physical exam concern for superimposed COPD exacerbation. I did not feel full 30 cc/kg sepsis fluid bolus was appropriate in the setting of CHF symptomatic with pulmonary edema on chest x-ray. Patient at baseline oxygen requirement on 3 L nasal cannula. Patient is appearing a little lethargic though alert and oriented with some stimulation verbally. ABG showing metabolic alkalosis no high CO2 retention. Suspect tachycardia likely secondary to subsequent breathing treatments with albuterol. Patient does not have any history of PE. Spoke to Dr. Bartlett, hospitalist who agrees to see patient for further workup and admission in the setting of CHF exacerbation with likely superimposed COPD exacerbation. Lab Data Attestation: I reviewed the patient's lab results. Lab results narrative: Labs show a stable hemoglobin compared to 04/11, potassium of 5 no EKG changes. Creatinine showing LIA elevation at 1.5 from 1.2 on 04/11. Largely elevated BNP 32,000 and compared to 12,000 on 04/02. Lactate at 2.0. 0-hour troponin 313. Will trend with 2-hour. Suspect likely elevation secondary to chronic CHF. ABG obtained showing metabolic alkalosis, CO2 40, HCO3 29 and pH 7.47. Labs: Laboratory Results - last 24 hr 04/13/25 08:30 WBC 8.4 RBC 3.03 L Hgb 8.0 L Hct 26.3 L MCV 86.8 MCH 26.4 L MCHC 30.4 L RDW Std Deviation 51.8 H RDW Coeff of Vijay 16.6 H Plt Count 344 MPV 10.7 Immature Gran % (Auto) 0.600 Neut % (Auto) 77.7 H Lymph % (Auto) 12.5 L [place] % (Auto) 8.5 Eos % (Auto) 0.2 Baso % (Auto) 0.5 Absolute Neuts (auto) 6.5 Absolute Lymphs (auto) 1.04 Nucleated RBC % 0 Sodium 137 Potassium 5.0 Chloride 100 Carbon Dioxide 24.1 Anion Gap 13 BUN 34 H Creatinine 1.58 H Estim Creat Clear Calc 28.09 L Est GFR (MDRD) Non-Af 33 L BUN/Creatinine Ratio 21.5 H Glucose 179 H Lactic Acid 2.0 Calcium 10.9 Troponin T High Sens 313 H* [place] [address] H ABG Data ABG results: ABG 04/13/25 09:34 Specimen Type ART Sample Site R Brach pH 7.47 H Bicarbonate Actual 29.3 H Total CO2 31 Base Excess 6 H O2 Saturation 97 O2 % 3.0 ABG pCO2 40.0 ABG pO2 81 Joe Test Positive O2 Delivery Device Cannula Vent Mode Not entered Radiography Chest X-Ray - ED: 1 View and Read by ED Physician (Pulmonary edema largely unchanged from previous on 04/11/2025) Diagnostic Testing: Clinical Impression(s) from Imaging Studies Chest X-Ray 04/13/25 09:15 IMPRESSION: Mild cardiomegaly. Vascular congestion and CHF. Reading Location: [place] [id number] EKG Initial EKG: Attestation: I personally reviewed and interpreted this EKG as follows: Interpretation: Sinus Tachycardia and - (Ventricular rate 106, HI 136, QTc 459. Normal axis. No signs of ST elevation or depression or diversions consistent with ischemia) Management Discussion w/another healthcare provider: Hospitalist Discharge Plan Dx/Rx/DC Orders Clinical Impression: CHF exacerbation, Chronic hypoxic respiratory failure, Sepsis Disposition Disposition: Acute Care Hospital [facility]
[2025-04-13 08:49] LABS: Hematocrit 26.3 % (37-47); Hemoglobin 8.0 g/dL (12.0-15.0); Immature Granulocytes Count 0.050 X10^3/uL (0.0-0.0); Mean Corp Hgb Conc 30.4 g/dL (32-36); Mean Corpuscular Volume 86.8 fL (81-99); Mean Platelet Vol. 10.7 fl (6.2-12.0); NRBC Flagged by Analyzer 0 % (0-5); Platelet Count 344 K/mm3 (150-450); RBC Distribution Width CV 16.6 % (11.6-14.6); RBC Distribution Width SD 51.8 fl (35.1-43.9); Red Blood Count 3.03 M/mm3 (4.2-5.4); White Blood Count 8.4 K/mm3 (4.4-11.0)
--- NOTE | 2025-04-13 09:15 | RAD_ITS ---
PROCEDURE: CHEST 1 VIEW (PORTABLE) 04/13/2025 REASON FOR EXAM: SOB TECHNIQUE: Frontal view of the chest. COMPARISON: Prior study dated April 11/2025. FINDINGS: Hardware: EKG electrodes are seen. Heart: Mild cardiomegaly Lungs: Mild vascular congestion and CHF. Left basilar atelectasis. Bones: Degenerative changes are identified within the thoracic spine. Other: RAD/Chest 1 View (Portable) IMPRESSION: Mild cardiomegaly. Vascular congestion and CHF. Reading Location: [place] [id number]
[2025-04-13 09:32] LABS: Anion Gap 13 (5-15); BUN 34 mg/dL (4-19); BUN/Creat Ratio 21.5 RATIO (10-20); Calcium,Total 10.9 mg/dL (7.6-11.0); Carbon Dioxide 24.1 mmol/L (21.0-32.0); Chloride 100 mmol/L (98-108); Estimated Creatinine Clearance 28.09 ml/min (50-250); Glucose 179 mg/dL (70-99); Potassium 5.0 mmol/L (3.3-5.1); Pro- Brain NATRIURETIC PEPTIDE 32513 pg/mL (<=1800)
[2025-04-13 09:39] LABS: Allen Test Positive; Base Excess 6 mmol/L (-2 to +2); FI02 3.0; PO2 81 mmHG (75-100); SITE R Brach; SO2 97 % (95-99)
[2025-04-13 09:40] LABS: Troponin T High Sensitivity 313 ng/L (<=14)
--- NOTE | 2025-04-13 10:49 | PCM.HP.STD ---
[facility] - General General Date of Admission: 04/13/25 Date of Service: 04/13/25 Chief Complaint: Shortness of breath HPI Narrative OLGA DONALDSON, is a 80 F who presented to [facility] ED on 04/13/2025 with worsening shortness of breath. Patient has had multiple hospitalizations here in the last several months. Medical history significant for COPD with chronic respiratory failure on 2 L at home, combined systolic and diastolic heart failure, and type 2 diabetes mellitus. She most recently was hospitalized here from 04/02-04/08 for acute on chronic hypoxic respiratory failure secondary to CHF exacerbation. Was noted that her diuretics were discontinued during the prior admission in February due to hypotension, and it was suspected that this led to volume overload. She was able to be diuresed during this March hospitalization and was stable on 2 L on discharge. It appears she was discharged to a nursing facility but today she presented from home with her son. She lives at home with her son and . Patient noted to ED staff that she had been experiencing more shortness of breath, congestion and cough over the past few days. She was using her home nebulizers with no relief. And route to the ED she was given DuoNebs with minimal improvement. On arrival to the ED she was requiring 3 L nasal cannula to maintain appropriate oxygen saturations. BP was borderline low. Chest x-ray showed mild cardiomegaly with vascular congestion concerning for recurrent CHF exacerbation with possible pneumonia as well. Given her low blood pressures, ED opted to treat for COPD exacerbation and pneumonia with no diuretic given. Hospitalist was then contacted for admission. I saw the patient at bedside in the ED, son was present. Importantly, patient did appear to have some degree of altered mentation. She was making appropriate eye contact with me with questions and mumbled short answers. Noted that she does feel short of breath and that she denies any current pain. However, she was easily falling asleep during the encounter. She was also noted to be quite shaky. Was suspected that the shakiness was due to the several doses of DuoNebs that she had received before I saw her. Son noted that she had some degree of somnolence yesterday as well, though today it seemed a bit more prominent than yesterday. Unclear reason for this degree of somnolence. Her blood pressure on multiple checks for me was running in the 90s to 100s systolic over 60s diastolic. Will be admitted for further management. Shortly after arrival to the floor, nursing staff noted to me that patient's lactic acid had worsened from 2.0 to 3.6. They also noted that she continued to wax and wane from a mentation standpoint for them. Decision was made to obtain CT brain as well as CT chest/abdomen/pelvis without contrast (due to LIA). CT brain showed a focal hypodensity in the left frontal lobe that could represent acute/subacute ischemic changes. CT chest abdomen pelvis showed bilateral pleural effusions, left lower lobe density likely representing some component of atelectasis but superimposed infection cannot be excluded, new large volume fluid within the bilateral flanks concerning for anasarca. Given the CT brain finding, MRI brain was ordered. Discussed with nursing staff and was noted that given patient's waxing and waning mentation, NIH scores would be difficult to obtain so decision made to hold off on getting these. Importantly, patient had no overt weakness in her upper or lower extremities noted. Patient is on a baby aspirin, and she was escalated from pravastatin to high intensity atorvastatin. Patient was also given a dose of IV Lasix 60 mg, with repeat lactic acid improving at 2.5. [facility] Medical History COPD exacerbation Acute UTI Back muscle spasm Former smoker On home oxygen therapy Osteoporosis History of diabetes mellitus COPD exacerbation Hypoxia Elevated troponin Acute dyspnea COPD with exacerbation Anemia History of COPD Elevated brain natriuretic peptide (BNP) level Elevated troponin Acute hypoxemic respiratory failure Obesity (BMI 30.0-34.9) Elevated troponin Lactic acidosis Poor venous access Diabetic polyneuropathy Hypomagnesemia Debility Fracture of hip, left, closed Coronary artery disease Weakness Gastroenteritis Paronychia of left index finger Abscess Vaginal cyst Anxiety Depression Irregular heart beat Multiple thyroid nodules Postmenopausal bleeding Foraminal stenosis of lumbar region Lumbar spinal stenosis Diabetic retinopathy Colon polyp GERD (gastroesophageal reflux disease) Thyroid goiter Hyperlipidemia Hypokalemia Microcytic anemia Neurogenic bladder Hypophosphatemia Hypercalcemia Former smoker UTI (urinary tract infection) Iron deficiency anemia Aortic stenosis Hyponatremia Urine retention Chronic renal failure, stage 3 (moderate) Cellulitis and abscess of finger, unspecified Retinopathy Peripheral artery disease Leg weakness, bilateral GERD (gastroesophageal reflux disease) Chronic idiopathic constipation COPD (chronic obstructive pulmonary disease) Polypharmacy Hypertension Carpal tunnel syndrome of right wrist Strain of right rotator cuff capsule Rhinitis Urinary retention with incomplete bladder emptying Vitamin D deficiency Asthma Pruritus Goiter, nontoxic, multinodular Anemia Diabetes COPD (chronic obstructive pulmonary disease) History of constipation Hx of venous thrombosis and embolism History of malignant neoplasm of breast Hypertension Type 2 diabetes mellitus Asthma Home Medications ?Medication ?Instructions ?Recorded ?Last Taken ?Type aspirin 81 mg chewable tablet 81 mg PO DAILY HEART HEALTH 01/21/16 01/15/25 History magnesium oxide 400 mg (241.3 mg 400 mg PO BID SUPPLEMENT 08/16/18 01/15/25 History magnesium) tablet pantoprazole 40 mg tablet,delayed 40 mg PO DAILY ACID REFLUX 12/02/19 01/15/25 History release empagliflozin 10 mg tablet 10 mg PO DAILY DIABETES 10/18/20 01/15/25 History (Jardiance) sitagliptin phosphate 50 mg tablet 50 mg PO DAILY DIABETES 10/18/20 01/15/25 History (Januvia) multivitamin 1 tab PO DAILY VITAMIN 12/06/21 01/15/25 History pravastatin 20 mg tablet 20 mg PO DAILY CHOLESTEROL 12/06/21 01/15/25 History ascorbic acid (vitamin C) 250 mg 250 mg PO DAILY SUPPLEMENT 08/13/23 01/15/25 History tablet (Vitamin C) roflumilast 500 mcg tablet 500 mcg PO DAILY COPD 08/13/23 01/15/25 History insulin lispro 100 unit/mL 10 unit subcut TIDAC short acting 12/30/23 01/15/25 History subcutaneous pen (Humalog KwikPen insulin (U-100) Insulin) Held on 04/13/25. Instructions: MD Ordered budesonide 160 mcg-glycopyr 9 2 inh inhalation BID breathing 01/07/25 01/15/25 History mcg-formot 4.8 mcg/actuation HFA inhaler (Breztri Aerosphere) insulin glargine 100 unit/mL (3 20 unit subcut BID diabetes 01/07/25 01/15/25 History mL) subcutaneous pen (Lantus Solostar U-100 Insulin) ipratropium bromide 21 mcg (0.03 1 - 2 spray intranasal Q6H PRN 01/07/25 Unknown History %) nasal spray allergy symptoms lancets 28 gauge (TRUEplus Lancets) 01/07/25 Unknown History acetaminophen 500 mg tablet 1,000 mg PO Q6H PRN Pain Score 1-3 01/15/25 Unknown History azelastine 137 mcg (0.1 %) nasal 1 - 2 spray intranasal BID nasal 01/15/25 01/15/25 History spray spray mecobalamin (vitamin B12) 1,000 1,000 mcg PO DAILY health 01/15/25 01/15/25 History mcg chewable tablet (B12 Active) maintenance menthol 0.44 %-zinc oxide 20.6 % 1 applic topical 4X/DAY PRN skin 01/15/25 Unknown History topical ointment (CalaSoothe) irritation netarsudil 0.02 %-latanoprost 1 drp EACH EYE DAILY eye drops 01/15/25 01/15/25 History 0.005 % eye drops (Rocklatan) psyllium husk 0.4 gram capsule 0.4 g PO DAILY constipation 01/15/25 01/15/25 History (Daily Fiber) tirzepatide 5 mg/0.5 mL 5 mg subcut QWEEK diabetes 01/15/25 Unknown History subcutaneous pen injector (Mounjaro) potassium chloride 20 mEq 20 meq PO BID supplement 02/04/25 Unknown History tablet,extended release (K-Tab) ipratropium 0.5 mg-albuterol 3 mg 3 ml inhalation Q6H.RT sob #120 02/06/25 Unknown Rx (2.5 mg base)/3 mL nebulization amps soln albuterol sulfate 90 mcg/actuation 2 puff inhalation Q6H PRN 02/09/25 Unknown History aerosol inhaler shortness of breath or wheezing cetirizine 10 mg tablet 10 mg PO DAILY allergy 02/09/25 Unknown History hydroxyzine HCl 25 mg tablet 12.5 mg PO QHS allergies 02/09/25 Unknown History gabapentin 100 mg capsule 100 mg PO QHS NERVE PAIN 3 days 02/17/25 Unknown Rx #3 caps guaifenesin 600 mg tablet, 600 mg PO BID cough #0 tabs 02/17/25 Unknown Rx extended release 12 hr (Mucinex) sacubitril 24 mg-valsartan 26 mg 1 tab PO BID #60 tabs 03/25/25 Unknown Rx tablet (Entresto) furosemide 20 mg tablet 60 mg (3 x 20 mg) PO DAILY #90 tabs 04/08/25 Unknown Rx metoprolol tartrate 25 mg tablet 25 mg PO BID #60 tabs 04/08/25 Unknown Rx diazepam 2 mg tablet 2 mg PO BID muscle spasm 04/13/25 Unknown History Allergy/AdvReac Type Severity Reaction Status Date / Time adhesive tape (tape) Allergy NEEDS Verified 04/13/25 08:41 FOLLOW-UP cephalexin monohydrate (From Allergy Rash Verified 04/13/25 08:41 Keflex) clopidogrel bisulfate (From Allergy Other Verified 04/13/25 08:41 Plavix) oxycodone AdvReac Severe made me Verified 04/13/25 08:41 really crazy called seed 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 on people amoxicillin AdvReac YEAST Verified 04/13/25 08:41 INFECTION Family History Daughter Breast cancer Father Hypertension Sister Cancer Kidney disease Mother Pancreatic cancer Surgical History History of left hip hemiarthroplasty S/P fine needle aspiration (~10/2020) H/O dilation and curettage (~07/10/20) History of Achilles tendon repair Retinopathy History of lumpectomy of left breast Social History household members: spouse Smoking Status: Former smoker alcohol intake: never substance use type: does not use caffeine: Yes what type of physical activity do you participate in: none seatbelt use: always do you feel safe at home: Yes additional social history: [employer]- retired ROS Review of Systems ROS Unobtainable: due to mental status Constitutional Constitutional: Reports fatigue and weakness; Denies chills or fever(s) Eyes Eyes: Denies change in vision Cardiovascular Cardiovascular: Denies chest pain Respiratory/Chest Respiratory/Chest: Reports shortness of breath at rest Gastrointestinal Gastrointestinal: Denies abdominal pain Musculoskeletal Musculoskeletal: Denies arthralgias or myalgias Vital Signs Vital Signs Vital Signs: 04/13/25 08:18 04/13/25 08:22 04/13/25 08:43 Temperature 99 F 99 F Temperature Source Oral Oral Pulse Rate 107 H 104 H Respiratory Rate 34 H 25 H Respiratory Effort Respiratory Depth Respiratory Pattern Blood Pressure 147/130 H 108/55 L Blood Pressure Mean 135 72 Pulse Ox 100 100 Oxygen Delivery Method Simple Mask Simple Mask Simple Mask Oxygen Flow Rate (L/min) 3 04/13/25 08:43 04/13/25 08:48 04/13/25 08:48 Temperature Temperature Source Pulse Rate 112 H Respiratory Rate 26 H Respiratory Effort Accessory Muscle Use Respiratory Depth Shallow Respiratory Pattern Tachypnea Blood Pressure Blood Pressure Mean Pulse Ox 100 Oxygen Delivery Method Simple Mask Simple Mask Oxygen Flow Rate (L/min) 3 04/13/25 09:25 04/13/25 10:02 Temperature 99.1 F Temperature Source Oral Pulse Rate 108 H Respiratory Rate 37 H Respiratory Effort Respiratory Depth Respiratory Pattern Blood Pressure 95/56 L Blood Pressure Mean 69 Pulse Ox 99 Oxygen Delivery Method Nasal Cannula Oxygen Flow Rate (L/min) 3 Weight Weight: 80.7 kg Body Mass Index (BMI) 31.5 Physical Exam Const alert and no apparent distress Constitutional Narrative: Elderly female, class I obesity, lethargic and somnolent appearing, making appropriate eye contact but with only a few short appropriate responses to questions noted, otherwise laying back comfortably in bed and in no acute distress. General Appearance: cooperative and comfortable Orientation / Consciousness: lethargic HEENT normocephalic, head/scalp atraumatic, hearing grossly normal bilaterally, nasal mucous membranes and turbinates normal and moist oral mucous membranes Eyes PERRL, EOMs intact bilaterally and conjunctivae normal Neck full ROM Chest inspection of chest normal Resp normal respiratory effort and no use of accessory muscles Resp Narrative: Breathing comfortably on 3 L nasal cannula at rest. Diminished breath sounds in bilateral lung bases with crackles noted bilaterally. Cardio regular rate, regular rhythm, no murmurs and peripheral pulses 2+ throughout GI normal to inspection, nondistended, normoactive bowel sounds, soft to palpation, non-tender and non-distended Back/Spine normal ROM Extremity Extremity Narrative: +1-2 lower extremity pitting edema noted. Skin no rashes or lesions noted Results Lab / Micro Data 04/14/25 02:27 04/14/25 02:27 Labs: Laboratory Results - last 24 hr 04/13/25 08:30: WBC 8.4, RBC 3.03 L, Hgb 8.0 L, Hct 26.3 L, MCV 86.8, MCH 26.4 L, MCHC 30.4 L, RDW Std Deviation 51.8 H, RDW Coeff of Vijay 16.6 H, Plt Count 344, MPV 10.7, Immature Gran % (Auto) 0.600, Neut % (Auto) 77.7 H, Lymph % (Auto) 12.5 L, [place] % (Auto) 8.5, Eos % (Auto) 0.2, Baso % (Auto) 0.5, Absolute Neuts (auto) 6.5, Absolute Lymphs (auto) 1.04, Nucleated RBC % 0, Sodium 137, Potassium 5.0, Chloride 100, Carbon Dioxide 24.1, Anion Gap 13, BUN 34 H, Creatinine 1.58 H, Estim Creat Clear Calc 28.09 L, Est GFR (MDRD) Non-Af 33 L, BUN/Creatinine Ratio 21.5 H, Glucose 179 H, Lactic Acid 2.0, Calcium 10.9, Troponin T High Sens 313 H* D, [place] [address] H ABG Data ABG results: ABG 04/13/25 09:34 Specimen Type ART Sample Site R Brach pH 7.47 H Bicarbonate Actual 29.3 H Total CO2 31 Base Excess 6 H O2 Saturation 97 O2 % 3.0 ABG pCO2 40.0 ABG pO2 81 Joe Test Positive O2 Delivery Device Cannula Vent Mode Not entered Imaging Radiology Impression Chest X-Ray 04/13/25 09:15 IMPRESSION: Mild cardiomegaly. Vascular congestion and CHF. Reading Location: [place] [id number] Assessment & Plan Assessment/Plan (1) CHF exacerbation: PLAN: Plan Patient is an 80-year-old female who presented [facility] ED on 04/14/2025 with worsening shortness of breath. 1. Acute hypoxia in setting of chronic hypoxic respiratory failure due to acute on chronic HFrEF with anasarca with concern for community-acquired pneumonia ? Admit under inpatient status to PCU. On home 2 L nasal cannula, requiring up to 3 L nasal cannula on admit to maintain appropriate saturations. Chest x-ray showed mild cardiomegaly with vascular congestion and CHF. CT chest/abdomen/pelvis without contrast showed bilateral pleural effusions with left lower lobe density concerning for atelectasis versus pneumonia, as well as new large volume fluid within the bilateral flanks concerning for anasarca. Afebrile with no leukocytosis, but procalcitonin significantly elevated at 24.50. BNP severely elevated at 32,000. Most recent echo on 01/20 showed EF 35 to 40%, moderate global hypokinesis of LV, evidence of diastolic dysfunction. Given worsening heart failure picture, repeat limited echo ordered. Will treat for possible pneumonia with IV Levaquin. Will start IV Lasix 60 mg twice daily and monitor BMP and urine output closely. Also need to monitor blood pressure closely. 2. Altered mental status with concern for CVA ? Neurology consulted. Patient with somnolence noted in the ED, though she did answer a few questions with short appropriate responses. Waxing and waning noted on the floor by ED staff. No overt sedating medications given to cause this. CT brain without contrast was obtained and showed a focal hypodensity in the left frontal lobe concerning for acute/subacute ischemic changes. Orders placed per stroke protocol order set and MRI brain ordered. However, discussed with nursing staff and due to difficulty obtaining NIH scores with mental status, NIH scoring was discontinued. Will continue to monitor closely and follow-up MRI brain as well as neurology recommendations. 3. LIA on CKD stage IIIa ? Creatinine 1.58 on admit, baseline appears to be around 1.0-1.2. Suspect due to cardiorenal syndrome. Treating with IV Lasix as above. Monitor daily BMP and urine output. 4. Elevated lactic acid ? Lactic acid 2.0 in the ED but then worsened to 3.6 on recheck. Suspected due to CHF exacerbation and some degree of hypoxia as above. Initiated on IV Lasix as above and lactic acid improved back to 2.4 and then 2.1. No acidosis noted on BMP. No need to monitor further lactic acid levels. 5. Elevated troponins ? Troponin trend 319 > 313. No ischemic EKG changes noted and no chest pain noted by patient. Suspect demand ischemia secondary to CHF exacerbation as above. Management as above. 6. Type 2 diabetes mellitus with diabetic neuropathy ? Glucose 179 on admit. Most recent A1c 10.6% in December. Repeat A1c ordered. Given suspected poor p.o. intake recently, will treat with reduced home dose of Lantus 15 units twice daily and sliding scale insulin with meals, adjust as needed. Continue home gabapentin. Hold home Jardiance and Mounjaro. 7. GERD ? Continue home PPI. 8. Class I obesity ? BMI 30.9 on admit. Complicates hospital course and care. DVT prophylaxis: Heparin subcu CODE STATUS: Full code, verified Expected disposition: TBD Total clinical time spent by myself addressing the patient's medical issues, reviewing all the data, and collaborating with patient's care team: 75 minutes. Charges/Coding Visit Charges Inpatient E&M: 79883 Init Hosp L3
--- NOTE | 2025-04-13 10:53 | ED.RN ---
patients asking for an update. informed she will be admitted to hospital. no further questions
[2025-04-13 10:59] LABS: Troponin T High Sens 2 HR 319 ng/L (<=14)
[2025-04-13] MEDS: Azithromycin 500 MG in 0.9% Normal Saline (250mL Bag) 250 ML 255 MG IV (11:04)
--- NOTE | 2025-04-13 11:55 | ECHOL_ITS ---
Reason For Study Reason For Study: CHF Procedure This was a limited 2D transthoracic echocardiogram. Myocardial strain analysis was performed in this exam to aid in the assessment of cardiac function. Patient scanned supine due to condition. Exam performed portable in patient room. Left Ventricle Normal LV size. Mild concentric left ventricular hypertrophy. Sigmoid septum. The global longitudinal strain = -5.8% (abnormal). The estimated ejection fraction is 20 %. Compared to previous study, the left ventricular systolic function has worsened.. Severe global left ventricular systolic dysfunction. Right Ventricle Normal right ventricle. Normal RV size. Normal systolic function. Atria The left atrium is mildly enlarged. Normal right atrium. Aneurysmal atrial septum. Cannot rule out tiny PFO. With left- to-right shunt through tiny PFO. Mitral Valve Bileaflet diffuse mitral valve thickening. Mild mitral valve stenosis. Mean transmitral valve gradient 3.3 mmHg. Peak transmitral valve gradient 8.5 mmHg. Heart rate 90 and regular. Mild-Moderate (1-2+) eccentric mitral valve insufficiency. Tricuspid Valve Mild (1+) tricuspid valve insufficiency. Pulmonary artery systolic pressure is 31 mmHg. Aortic Valve Moderate diffuse aortic valve calcification. Moderate diffuse aortic valve thickening. Cannot rule out bicuspid pathology with fusion of the left and noncoronary cusp. Peak aortic valve gradient 24 mmHg. Mean aortic valve gradient 15 mmHg. Mild to moderate aortic stenosis. Dimensionless index 0.5 and a valve area 1.5 cm2. Mild (1+) aortic valve insufficiency. Pulmonic Valve Trivial pulmonic valve insufficiency. Great Vessels Normal sized aortic root. The inferior vena cava is dilated. Pericardium/Pleural No pericardial effusion. Medication Performed a rapid injection of agitated mix of 9 cc saline and 1cc air to assess for atrial septal defect. MMode/2D Measurements & Calculations LVIDd: 4.9 cm IVSd: 0.98 cm LVOT diam: 2.0 cm LVIDs: 4.2 cm LVPWd: 0.96 cm FS: 14.6 % LVOT area: 3.0 cm2 LAV(MOD-bp): 97.1 ml LVAd ap4: 34.0 cm2 SV(MOD-sp4): 22.6 ml LAV(MOD-bp) Indexed: 52.8 ml/m2 LVLd ap4: 8.0 cm SI(MOD-sp4): 12.3 ml/m2 LAV(MOD-sp2): 101.2 ml EDV(MOD-sp4): 119.8 ml LAV(MOD-sp4): 83.6 ml EDV(sp4-el): 123.0 ml LVAs ap4: 30.0 cm2 LVLs ap4: 7.6 cm ESV(MOD-sp4): 97.2 ml ESV(sp4-el): 100.2 ml EF(MOD-sp4): 18.9 % EF(sp4-el): 18.6 % SV(sp4-el): 22.8 ml LA A4 area: 24.6 cm2 RA A4 area: 15.9 cm2 Time Measurements MV dec time: 0.12 sec Doppler Measurements & Calculations MV E max pino: 102.8 cm/sec Lat Peak E' Pino: 6.5 cm/sec Med Peak E' Pino: 5.1 cm/sec MV A max pino: 120.2 cm/sec E/E' lat: 15.9 E/E' med: 20.3 MV E/A: 0.85 MV V2 max: 138.9 cm/sec MV P1/2t max pino: 118.0 cm/sec Ao V2 max: 245.6 cm/sec MV max P.7 mmHg MV P1/2t: 39.1 msec Ao max P.1 mmHg MV V2 mean: 77.1 cm/sec Ao V2 mean: 183.0 cm/sec MV mean P.9 mmHg MV dec slope: 882.7 cm/sec2 Ao mean P.1 mmHg MV V2 VTI: 28.1 cm MVA(P1/2t): 5.6 cm2 Ao V2 VTI: 50.5 cm AV (velocity ratio): 0.49 MVA(VTI): 2.7 cm2 LORNA(I,D): 1.5 cm2 LORNA(V,D): 1.5 cm2 AI max pino: 340.7 cm/sec LV V1 max: 118.4 cm/sec MR max pino: 473.7 cm/sec AI max P.4 mmHg LV V1 max P.6 mmHg MR max P.7 mmHg AI dec slope: 466.2 cm/sec2 LV V1 mean P.5 mmHg MR mean pino: 336.8 cm/sec AI P1/2t: 214.1 msec LV V1 mean: 88.1 cm/sec MR mean P.1 mmHg LV V1 VTI: 24.8 cm MR VTI: 131.0 cm SV(LVOT): 75.3 ml TR max pino: 292.9 cm/sec TR max P.3 mmHg ECHO/Echo, Limited Study Interpretation Summary Mild concentric left ventricular hypertrophy. Normal LV size. The estimated ejection fraction is 20 %. Compared to previous study, the left ventricular systolic function has worsened .. Heavily calcified aortic valve with mild to moderate aortic valvular stenosis,M fernando aortic valve gradient 15 mmHg. Mild to moderate aortic stenosis.Peak aortic valve gradient 24 mmHg.Dimensionless in dex 0.5 and a valve area 1.5 cm2,Cannot rule out bicuspid pathology with fusion of the left and noncoronary cusp Mild tricuspid regurgitation with top normal right-sided pressures, pulmonary p ressure 31 mmHg Ordering Physician: Nestor Bartlett Referring Physician: Axel Nicholas Performed By: Jeet Walker RCS
[2025-04-13] MEDS: 0.9% Saline Lock 10 ML Syringe IV ×2 (13:07→18:15)
[2025-04-13 13:19] LABS: Reflex Lactate? Y
[2025-04-13 13:22] LABS: Procalcitonin 24.50 ng/mL (<=0.10)
--- NOTE | 2025-04-13 14:37 | CT_ITS ---
PROCEDURE: CT CHEST, ABD, PELVIS WO CONT 04/13/2025 REASON FOR EXAM: HYPOXIA, WORSENING LACTATE, ABD DISTENSION TECHNIQUE: Chest, abdomen and pelvis CT without intravenous contrast. Coronal and Sagittal reconstruction series were provided. One or more dose reduction techniques were used (e.g., Automated exposure control, adjustment of the mA and/or kV according to patient size, use of iterative reconstruction technique. RADIATION DOSE SUMMARY: CTDlvol: 27 mGy DLP: 3911 mGycm COMPARISON: 04/02/[address] 03/21/2025 CT abdomen pelvis. FINDINGS: CT CHEST: Enlarged thyroid with stable bilateral nodules. Degenerative changes of the spine. Severe atherosclerosis of a normal caliber abdominal aorta. Coronary artery calcifications are present. Enlarged heart. No pericardial effusion. Moderate [id number]-[id number]-right pleural effusions. Left lower lobe density which likely represents at least some component of atelectasis but superimposed infection can not be excluded. CT ABDOMEN / PELVIS: Noncontrast technique limits evaluation of the abdominal and pelvic viscera. Bilateral flank fluid which is new since the prior study. Left hip arthroplasty. Degenerative changes of the spine. Severe atherosclerosis. No suspicious lymphadenopathy. The liver, gallbladder, pancreas, spleen, and adrenals are unremarkable. Bilateral nonobstructive renal calculi. No hydroureteronephrosis. The urinary bladder is distended with urine. Uterine fibroids with partial calcification. Normal caliber large and small bowel. No free air. CT/CT Chest, Abd, Pelvis WO Cont IMPRESSION: Bilateral pleural effusions. Left lower lobe density likely representing some component of atelectasis. Sup erimposed infection can not be excluded. New large volume fluid within the bilateral flanks which may represent anasarca . Bilateral nonobstructive nephrolithiasis. Reading Location: [id number]
--- NOTE | 2025-04-13 14:37 | CT_ITS ---
PROCEDURE: BRAIN/HEAD WITHOUT CONTRAST 04/13/2025 REASON FOR EXAM: ALTERED MENTATION, WORSENING LACTATE TECHNIQUE: BRAIN/HEAD WITHOUT CONTRAST Coronal and Sagittal reconstruction series were provided. One or more dose reduction techniques were used (e.g., Automated exposure control, adjustment of the mA and/or kV according to patient size, use of iterative reconstruction technique. RADIATION DOSE SUMMARY: CTDlvol: 44.99 mGy DLP: 846.73 mGycm COMPARISON: None FINDINGS: Brain: Focal area of decreased attenuation in the left frontal lobe. This is suggestive of acute/subacute ischemia. Calcification of the basal ganglia. This is a normal variant. CSF Spaces: Mild generalized cerebral atrophy Sinuses/Mastoids: Clear at visualized levels Bones: CT/Brain/Head without Contrast IMPRESSION: Focal hypodensity in the left frontal lobe. This may represent acute/subacute ischemic changes. Reading Location: [place] [id number]
[2025-04-13] MEDS: Heparin Injection (Vial) 5,000 UNIT/ML VIAL 5000 UNIT SC ×2 (14:41→22:31)
--- NOTE | 2025-04-13 16:10 | CASEMGMT ---
Social Work Pt readmitted from [facility]. SW met with pt who states she has been doing well at [facility] and plans to return there at time of discharge. Pt will need a new precert prior to returning. DC quality assurance assistant updated and to send clinicals when they are available. Plan: Return to [facility], new precert will be needed TANIA Mandujano
[2025-04-13 19:51] LABS: Color, Urine Yellow (Yellow); Glucose, Dipstick 100 mg/dl (Normal); Ketone-Dipstick Negative (Negative); Leukocyte Esterase-Dipstick 500 /ul (Negative); Nitrite-Dipstick Negative (Negative); Occult Blood-Urine 10 /ul (Negative); Protein-Dipstick 30 mg/dl (Negative); Specific Gravity, Urine 1.010 (1.002-1.030); Urine Bilirubin Dipstick Negative (Negative)
[2025-04-13] MEDS: Budesonide Respules 0.5 MG/2 ML AMPUL.NEB. INHALATION (19:52)
[2025-04-13] MEDS: Insulin Glargine-YFGN 100 UNIT/ML Pen 15 UNIT SC (22:46)
[2025-04-14] VITALS (12 sets, daily range): BP systolic 93–100; BP diastolic 52–60; PULSE 102–111; RESP 17–36; TEMP 35.6–36.6; O2SAT 92–100; BMI 30.8
[2025-04-14 01:38] LABS: Reflex Lactate? Y
[2025-04-14 02:47] LABS: Hematocrit 25.4 % (37-47); Hemoglobin 7.6 g/dL (12.0-15.0); Mean Corp Hgb Conc 29.9 g/dL (32-36); Mean Corpuscular Volume 86.4 fL (81-99); Mean Platelet Vol. 10.6 fl (6.2-12.0); Platelet Count 327 K/mm3 (150-450); RBC Distribution Width CV 17.0 % (11.6-14.6); RBC Distribution Width SD 53.6 fl (35.1-43.9); Red Blood Count 2.94 M/mm3 (4.2-5.4); White Blood Count 6.9 K/mm3 (4.4-11.0)
[2025-04-14 03:06] LABS: Anion Gap 15 (5-15); BUN 45 mg/dL (4-19); BUN/Creat Ratio 24.7 RATIO (10-20); Calcium,Total 10.8 mg/dL (7.6-11.0); Carbon Dioxide 21.7 mmol/L (21.0-32.0); Chloride 99 mmol/L (98-108); Estimated Creatinine Clearance 24.20 ml/min (50-250); Glucose 319 mg/dL (70-99); Potassium 5.7 mmol/L (3.3-5.1)
[2025-04-14] MEDS: Heparin Injection (Vial) 5,000 UNIT/ML VIAL 5000 UNIT SC ×3 (06:29→22:59)
[2025-04-14] MEDS: Budesonide Respules 0.5 MG/2 ML AMPUL.NEB. INHALATION (06:55)
[2025-04-14] MEDS: Furosemide 500 MG in Empty Viaflex 50 mL 1 EACH CONT INF (09:01)
--- NOTE | 2025-04-14 09:10 | CASEMGMT ---
Addendum entered by Mariana Wilson 04/14/25 10:05: Pt will need new precert. SW updated. Mariana Wilson DC Planning Asst. Original Note: Discharge Planning Per SW, pt wishes to return to [facility]. Updates sent with note asking if new precert is needed. Awaiting response. Mariana Wilson DC Planning Asst.
[2025-04-14 09:19] LABS: Urea Nitrogen, Urine 368 mg/dL (NO RANGE EST.)
[2025-04-14 09:21] LABS: Cholesterol 121 mg/dL (<=200); Low Density Lipoprotein Calc. 71 mg/dL; Triglycerides 74 mg/dL; Very Low Density Lipoprotein 15 mg/dL (5-40); cholesterol:hdl ratio screen 3.44
--- NOTE | 2025-04-14 11:01 | PN.HOSP_ITS ---
Reason for Visit Chief Complaint: Shortness of breath Subjective Subjective Saw patient at bedside this morning. Patient was more alert this morning than yesterday but she remains somewhat confused. Was able to tell me she was in the hospital but could not say which hospital. Denied any pain or discomfort. Was able to participate in neurologic testing with no focal deficits noted. Objective Data Objective Data Vital Signs: Vital Signs Temp Pulse Resp BP Pulse Ox O2 Del Method O2 Flow Rate 96.1 F L 108 H 20 H 98/52 L 93 Nasal Cannula 4 04/14/25 03:37 04/14/25 06:56 04/14/25 06:56 04/14/25 03:37 04/14/25 06:56 04/14/25 06:56 04/14/25 06:56 Oxygen Flow Rate (L/min) 4 Oxygen Delivery Method Nasal Cannula Weight: 79 kg Body Mass Index (BMI) 30.8 Intake & Output: Intake and Output for Last 24 Hours 04/12/25 04/13/25 04/14/25 23:59 23:59 23:59 Intake Total 305 / 305 Output Total 1450 / 1450 50 / 50 Balance -1145 / -1145 -50 / -50 Lab / Micro Data 04/14/25 02:27 04/14/25 02:27 Labs: Laboratory Results - last 24 hr 04/13/25 10:22: Procalcitonin 24.50 H 04/13/25 13:30: Lactic Acid 3.6 H* 04/13/25 18:45: Urine Color Yellow, Urine Clarity Sl. Cloudy, Urine pH 7.0, Ur Specific [place] 1.010, Urine Protein 30 H, Urine Glucose (UA) 100 H, Urine Ketones Negative, Urine Occult Blood 10 H, Urine Nitrite Negative, Urine Bilirubin Negative, Urine Urobilinogen Normal, Ur Leukocyte Esterase 500 H, Ur Random Sodium 28, Urine Creatinine 74.50, Urine Urea Nitrogen 368 04/13/25 21:29: Lactic Acid 2.4 H* 04/13/25 22:35: POC Glucose 289 H 04/14/25 02:27: WBC 6.9, RBC 2.94 L, Hgb 7.6 L, Hct 25.4 L, MCV 86.4, MCH 25.9 L , MCHC 29.9 L, RDW Std Deviation 53.6 H, RDW Coeff of Vijay 17.0 H, Plt Count 327, MPV 10.6, Sodium 136, Potassium 5.7 H, Chloride 99, Carbon Dioxide 21.7, Anion Gap 15, BUN 45 H, Creatinine 1.81 H, Estim Creat Clear Calc 24.20 L, Est GFR (MDRD) Non-Af 28 L, BUN/Creatinine Ratio 24.7 H, Glucose 319 H, Lactic Acid 2.1 H*, Calcium 10.8, Triglycerides 74, Cholesterol 121, LDL Cholesterol, Calc 71, VLDL Cholesterol 15, HDL Cholesterol 35 L, Cholesterol/HDL Ratio 3.44 04/14/25 06:27: POC Glucose 318 H Micro: Microbiology 04/13/25 09:51 Mucosa - Nose SARS-CoV-2, Influenza & RSV (PCR) - Final Radiography Diagnostic Testing: Radiology Impression Echocardiogram 04/13/25 11:55 Interpretation Summary Mild concentric left ventricular hypertrophy. Normal LV size. The estimated ejection fraction is 20 %. Compared to previous study, the left ventricular systolic function has worsened.. Heavily calcified aortic valve with mild to moderate aortic valvular stenosis,Mean aortic valve gradient 15 mmHg. Mild to moderate aortic stenosis.Peak aortic valve gradient 24 mmHg.Dimensionless index 0.5 and a valve area 1.5 cm2,Cannot rule out bicuspid pathology with fusion of the left and noncoronary cusp Mild tricuspid regurgitation with top normal right-sided pressures, pulmonary pressure 31 mmHg Ordering Physician: Nestor Bartlett Referring Physician: Axel Nicholas Performed By: Jeet Walker, SARAH Brain CT 04/13/25 14:37 IMPRESSION: Focal hypodensity in the left frontal lobe. This may represent acute/subacute ischemic changes. Reading Location: [facility]--1 Chest/Abdomen/Pelvis CT 04/13/25 14:37 IMPRESSION: Bilateral pleural effusions. Left lower lobe density likely representing some component of atelectasis. Superimposed infection can not be excluded. New large volume fluid within the bilateral flanks which may represent anasarca. Bilateral nonobstructive nephrolithiasis. Reading Location: [facility] Physical Exam Const alert and no apparent distress Constitutional Narrative: Elderly female, class I obesity, more alert today compared to yesterday, still somewhat confused appearing with only some appropriate answers to questions, otherwise laying back comfortably in bed and in no acute distress. General Appearance: cooperative and comfortable HEENT normocephalic, head/scalp atraumatic, hearing grossly normal bilaterally, nasal mucous membranes and turbinates normal and moist oral mucous membranes Eyes PERRL, EOMs intact bilaterally and conjunctivae normal Neck full ROM Chest inspection of chest normal Resp normal respiratory effort and no use of accessory muscles Resp Narrative: Breathing comfortably on 2 L nasal cannula at rest. Diminished breath sounds in bilateral lung bases with mild crackles noted bilaterally, improving. Cardio regular rate, regular rhythm, no murmurs and peripheral pulses 2+ throughout GI normal to inspection, nondistended, normoactive bowel sounds, soft to palpation, non-tender and non-distended Back/Spine normal ROM Extremity Extremity Narrative: +1-2 lower extremity pitting edema noted, stable. Skin no rashes or lesions noted Neuro moves all extremities and no focal motor deficits Neuro Narrative: Generalized weakness noted. Assessment & Plan Assessment/Plan (1) CHF exacerbation: PLAN: Plan Patient is an 80-year-old female who presented [facility] ED on 04/14/2025 with worsening shortness of breath. 1. Acute hypoxia in setting of chronic hypoxic respiratory failure due to acute on chronic HFrEF with anasarca with concern for community-acquired pneumonia ? Cardiology following. On home 2 L nasal cannula, requiring up to 3 L nasal cannula on admit to maintain appropriate saturations. Chest x-ray showed mild cardiomegaly with vascular congestion and CHF. CT chest/abdomen/pelvis without contrast showed bilateral pleural effusions with left lower lobe density concerning for atelectasis versus pneumonia, as well as new large volume fluid within the bilateral flanks concerning for anasarca. Afebrile with no leukocytosis, but procalcitonin significantly elevated at 24.50. BNP severely elevated at 32,000. Most recent echo on 01/20 showed EF 35 to 40%, moderate global hypokinesis of LV, evidence of diastolic dysfunction. Repeat echo on evening of 04/13 showed worsening EF of 20% with severe global LV dysfunction. Initially on IV Lasix 60 mg twice daily, escalated to Lasix drip at 10 mL/h on morning of 04/14, will monitor urine output closely as well as daily BMP. Continue IV Levaquin for possible pneumonia as well. Weaned back to home 2 L nasal cannula on 04/14. 2. Altered mental status with concern for CVA ? Neurology following. Patient with somnolence noted in the ED, though she did answer a few questions with short appropriate responses. Had waxing and waning noted on the floor on evening of admission. CT brain without contrast showed a focal hypodensity in the left frontal lobe concerning for acute/subacute ischemic changes. Orders were placed per stroke protocol order set but due to difficulty obtaining NIH scores given mental status, NIH scoring was discontinued. Per neurology, suspect CT finding is more consistent with subacute CVA. MRI brain and MRA head/neck ordered; completion has been delayed due to her bladder stimulator. Continue aspirin and high intensity statin. 3. LIA on CKD stage IIIa with mild hyperkalemia ? Nephrology following. Creatinine 1.58 on admit, baseline appears to be around 1.0-1.2. Creatinine worsened to 1.8 on 04/14 and potassium slightly worsened to 5.7. Per nephrology, seems most consistent with cardiorenal syndrome. Treating with IV Lasix drip as above. Continue to monitor daily BMP and urine output. Low potassium diet ordered as well. 4. Elevated lactic acid ? Lactic acid 2.0 in the ED but then worsened to 3.6 on recheck. Suspected due to CHF exacerbation and some degree of hypoxia as above. Initiated on IV Lasix as above and lactic acid improved back to 2.4 and then 2.1. No acidosis noted on BMP. No need to monitor further lactic acid levels. 5. Elevated troponins ? Troponin trend 319 > 313. No ischemic EKG changes noted and no chest pain noted by patient. Suspect demand ischemia secondary to CHF exacerbation as above. Management as above. 6. Type 2 diabetes mellitus with diabetic neuropathy ? Glucose 179 on admit. Most recent A1c 10.6% in December. Repeat A1c ordered. Given suspected poor p.o. intake recently, will treat with reduced home dose of Lantus 15 units twice daily and sliding scale insulin with meals, adjust as needed. Continue home gabapentin. Hold home Jardiance and Mounjaro. 7. GERD ? Continue home PPI. 8. Class I obesity ? BMI 30.9 on admit. Complicates hospital course and care. 9. Acute urinary retention ? Patient noted to have significant urinary retention on evening of admission with 1400 cc on bladder scan. Suspect this is due to her altered mental status as above. Serna catheter placed at that time and will continue for now. 10. Chronic normocytic anemia ? Hemoglobin 8.0 on admit, baseline around 8. Mildly decreased to 7.6 on hospital day 2. No active signs of bleeding noted. Continue to monitor CBC daily. DVT prophylaxis: Heparin subcu CODE STATUS: Full code, verified Expected disposition: TBD Total clinical time spent by myself addressing the patient's medical issues, reviewing all the data, and collaborating with patient's care team: 35 minutes. Charges/Coding Visit Charges Inpatient E&M: 80750 Subs Hosp L2
[2025-04-14] MEDS: Azelastine HCl NASAL.SRY 1 SPRAY NASAL ×2 (11:35→22:59)
[2025-04-14] MEDS: Insulin Glargine-YFGN 100 UNIT/ML Pen 15 UNIT SC ×2 (11:36→22:57)
--- NOTE | 2025-04-14 13:12 | NEURO.CONS ---
Assessment and Plan: Neuro Assessment/Plan 80 y/o woman with h/o COPD on home oxygen, heart failure and DM p/w worsening of shortness of breath. Due to the concern of altered mental state, CT head was performed which showed subacute left frontal stroke. CT chest abdomen pelvis showed bilateral pleural effusions, left lower lobe density likely representing some component of atelectasis but superimposed infection cannot be excluded, new large volume fluid within the bilateral flanks concerning for anasarca. Given the CT brain finding, MRI brain was ordered. Today, patient reports feeling better and noticed to have mild aphasia mainly expressive/paraphrasic error. NIHSS-1. TTE- EF-20%. Diagnosis: Left MCA stroke, cryptogenic vs heart failure with low EF Plan: Continue ASA and statin. Follow up MRI Brain along with MRA head and neck. Follow up cardiology recs. OT/PT/[employer]. I personally attended this patient and spent a total time of 70 minutes evaluating this patient including clinical assessment, review of chart, medical history imaging, and determining appropriate treatment and workup. HPI Consult Data Date of Consult: 04/14/25 HPI Narrative HPI Narrative: 80 y/o woman with h/o COPD on home oxygen, heart failure and DM p/w worsening of shortness of breath. Due to the concern of altered mental state, CT head was performed which showed subacute left frontal stroke. CT chest abdomen pelvis showed bilateral pleural effusions, left lower lobe density likely representing some component of atelectasis but superimposed infection cannot be excluded, new large volume fluid within the bilateral flanks concerning for anasarca. Given the CT brain finding, MRI brain was ordered. Today, patient reports feeling better and noticed to have mild aphasia mainly expressive/paraphrasic error. NIHSS-1. TTE- EF-20%. FORMERLY [facility], [facility] Medical History COPD exacerbation Acute UTI Back muscle spasm Former smoker On home oxygen therapy Osteoporosis History of diabetes mellitus COPD exacerbation Hypoxia Elevated troponin Acute dyspnea COPD with exacerbation Anemia History of COPD Elevated brain natriuretic peptide (BNP) level Elevated troponin Acute hypoxemic respiratory failure Obesity (BMI 30.0-34.9) Elevated troponin Lactic acidosis Poor venous access Diabetic polyneuropathy Hypomagnesemia Debility Fracture of hip, left, closed Coronary artery disease Weakness Gastroenteritis Paronychia of left index finger Abscess Vaginal cyst Anxiety Depression Irregular heart beat Multiple thyroid nodules Postmenopausal bleeding Foraminal stenosis of lumbar region Lumbar spinal stenosis Diabetic retinopathy Colon polyp GERD (gastroesophageal reflux disease) Thyroid goiter Hyperlipidemia Hypokalemia Microcytic anemia Neurogenic bladder Hypophosphatemia Hypercalcemia Former smoker UTI (urinary tract infection) Iron deficiency anemia Aortic stenosis Hyponatremia Urine retention Chronic renal failure, stage 3 (moderate) Cellulitis and abscess of finger, unspecified Retinopathy Peripheral artery disease Leg weakness, bilateral GERD (gastroesophageal reflux disease) Chronic idiopathic constipation COPD (chronic obstructive pulmonary disease) Polypharmacy Hypertension Carpal tunnel syndrome of right wrist Strain of right rotator cuff capsule Rhinitis Urinary retention with incomplete bladder emptying Vitamin D deficiency Asthma Pruritus Goiter, nontoxic, multinodular Anemia Diabetes COPD (chronic obstructive pulmonary disease) History of constipation Hx of venous thrombosis and embolism History of malignant neoplasm of breast Hypertension Type 2 diabetes mellitus Asthma Home Medications ?Medication ?Instructions ?Recorded ?Last Taken ?Type aspirin 81 mg chewable tablet 81 mg PO DAILY HEART HEALTH 01/21/16 01/15/25 History magnesium oxide 400 mg (241.3 mg 400 mg PO BID SUPPLEMENT 08/16/18 01/15/25 History magnesium) tablet pantoprazole 40 mg tablet,delayed 40 mg PO DAILY ACID REFLUX 12/02/19 01/15/25 History release empagliflozin 10 mg tablet 10 mg PO DAILY DIABETES 10/18/20 01/15/25 History (Jardiance) sitagliptin phosphate 50 mg tablet 50 mg PO DAILY DIABETES 10/18/20 01/15/25 History (Januvia) multivitamin 1 tab PO DAILY VITAMIN 12/06/21 01/15/25 History pravastatin 20 mg tablet 20 mg PO DAILY CHOLESTEROL 12/06/21 01/15/25 History ascorbic acid (vitamin C) 250 mg 250 mg PO DAILY SUPPLEMENT 08/13/23 01/15/25 History tablet (Vitamin C) roflumilast 500 mcg tablet 500 mcg PO DAILY COPD 08/13/23 01/15/25 History insulin lispro 100 unit/mL 10 unit subcut TIDAC short acting 12/30/23 01/15/25 History subcutaneous pen (Humalog KwikPen insulin (U-100) Insulin) Held on 04/13/25. Instructions: Ordered budesonide 160 mcg-glycopyr 9 2 inh inhalation BID breathing 01/07/25 01/15/25 History mcg-formot 4.8 mcg/actuation HFA inhaler (Breztri Aerosphere) insulin glargine 100 unit/mL (3 20 unit subcut BID diabetes 01/07/25 01/15/25 History mL) subcutaneous pen (Lantus Solostar U-100 Insulin) ipratropium bromide 21 mcg (0.03 1 - 2 spray intranasal Q6H PRN 01/07/25 Unknown History %) nasal spray allergy symptoms lancets 28 gauge (TRUEplus Lancets) 01/07/25 Unknown History acetaminophen 500 mg tablet 1,000 mg PO Q6H PRN Pain Score 1-3 01/15/25 Unknown History azelastine 137 mcg (0.1 %) nasal 1 - 2 spray intranasal BID nasal 01/15/25 01/15/25 History spray spray mecobalamin (vitamin B12) 1,000 1,000 mcg PO DAILY health 01/15/25 01/15/25 History mcg chewable tablet (B12 Active) maintenance menthol 0.44 %-zinc oxide 20.6 % 1 applic topical 4X/DAY PRN skin 01/15/25 Unknown History topical ointment (CalaSoothe) irritation netarsudil 0.02 %-latanoprost 1 drp EACH EYE DAILY eye drops 01/15/25 01/15/25 History 0.005 % eye drops (Rocklatan) psyllium husk 0.4 gram capsule 0.4 g PO DAILY constipation 01/15/25 01/15/25 History (Daily Fiber) tirzepatide 5 mg/0.5 mL 5 mg subcut QWEEK diabetes 01/15/25 Unknown History subcutaneous pen injector (Prabhu) potassium chloride 20 mEq 20 meq PO BID supplement 02/04/25 Unknown History tablet,extended release (K-Tab) ipratropium 0.5 mg-albuterol 3 mg 3 ml inhalation Q6H.RT sob #120 02/06/25 Unknown Rx (2.5 mg base)/3 mL nebulization amps soln albuterol sulfate 90 mcg/actuation 2 puff inhalation Q6H PRN 02/09/25 Unknown History aerosol inhaler shortness of breath or wheezing cetirizine 10 mg tablet 10 mg PO DAILY allergy 02/09/25 Unknown History hydroxyzine HCl 25 mg tablet 12.5 mg PO QHS allergies 02/09/25 Unknown History gabapentin 100 mg capsule 100 mg PO QHS NERVE PAIN 3 days 02/17/25 Unknown Rx #3 caps guaifenesin 600 mg tablet, 600 mg PO BID cough #0 tabs 02/17/25 Unknown Rx extended release 12 hr (Mucinex) sacubitril 24 mg-valsartan 26 mg 1 tab PO BID #60 tabs 03/25/25 Unknown Rx tablet (Entresto) furosemide 20 mg tablet 60 mg (3 x 20 mg) PO DAILY #90 tabs 04/08/25 Unknown Rx metoprolol tartrate 25 mg tablet 25 mg PO BID #60 tabs 04/08/25 Unknown Rx diazepam 2 mg tablet 2 mg PO BID muscle spasm 04/13/25 Unknown History Allergy/AdvReac Type Severity Reaction Status Date / Time adhesive tape (tape) Allergy NEEDS Verified 04/13/25 08:41 FOLLOW-UP cephalexin monohydrate (From Allergy Rash Verified 04/13/25 08:41 Keflex) clopidogrel bisulfate (From Allergy Other Verified 04/13/25 08:41 Plavix) oxycodone AdvReac Severe made me Verified 04/13/25 08:41 really crazy 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 amoxicillin AdvReac YEAST Verified 04/13/25 08:41 INFECTION Family History Daughter Breast cancer Father Hypertension Sister Cancer Kidney disease Mother Pancreatic cancer Surgical History History of left hip hemiarthroplasty S/P fine needle aspiration (~10/2020) H/O dilation and curettage (~07/10/20) History of Achilles tendon repair Retinopathy History of lumpectomy of left breast Social History household members: spouse Smoking Status: Former smoker alcohol intake: never substance use type: does not use caffeine: Yes what type of physical activity do you participate in: none seatbelt use: always do you feel safe at home: Yes additional social history: [employer]- retired Vital Signs Vital Signs Vital Signs: 04/13/25 13:15 04/13/25 14:40 04/13/25 15:48 Temperature 97.0 F L Temperature Source Axillary Pulse Rate 98 87 Respiratory Rate 22 H 22 H Respiratory Effort Respiratory Depth Respiratory Pattern Blood Pressure 103/64 93/56 L Blood Pressure Mean 77 68 Blood Pressure Source Monitor Blood Pressure Position Semi-Fowlers Blood Pressure Location Left Arm Pulse Ox 100 99 93 Oxygen Delivery Method Nasal Cannula Nasal Cannula Room Air Oxygen Flow Rate (L/min) 3 2 04/13/25 16:09 04/13/25 16:10 04/13/25 19:30 Temperature 97.7 F L 97.7 F L Temperature Source Oral Oral Pulse Rate 92 96 Respiratory Rate 22 H 22 H 22 H Respiratory Effort Short of Breath Accessory Muscle Use Respiratory Depth Deep Respiratory Pattern Tachypnea Blood Pressure 102/59 L 88/61 L Blood Pressure Mean 73 70 Blood Pressure Source Monitor Monitor Blood Pressure Position Semi-Fowlers Semi-Fowlers Blood Pressure Location Left Arm Left Arm Pulse Ox 93 97 Oxygen Delivery Method Nasal Cannula Nasal Cannula Nasal Cannula Oxygen Flow Rate (L/min) 2 2 04/13/25 19:53 04/13/25 19:55 04/13/25 22:00 Temperature Temperature Source Pulse Rate 97 Respiratory Rate 28 H 22 H Respiratory Effort Short of Breath Accessory Muscle Use Respiratory Depth Deep Respiratory Pattern Tachypnea Blood Pressure Blood Pressure Mean Blood Pressure Source Blood Pressure Position Blood Pressure Location Pulse Ox 100 Oxygen Delivery Method Nasal Cannula Nasal Cannula Oxygen Flow Rate (L/min) 2 3 04/13/25 22:11 04/13/25 22:30 04/14/25 01:55 Temperature Temperature Source Pulse Rate 106 H Respiratory Rate 28 H Respiratory Effort Respiratory Depth Respiratory Pattern Tachypnea Blood Pressure 91/57 L Blood Pressure Mean 68 Blood Pressure Source Blood Pressure Position Blood Pressure Location Pulse Ox Oxygen Delivery Method Nasal Cannula Oxygen Flow Rate (L/min) 3 04/14/25 03:37 04/14/25 04:01 04/14/25 06:56 Temperature 96.1 F L Temperature Source Temporal Pulse Rate 102 H 108 H Respiratory Rate 20 H 20 H Respiratory Effort Respiratory Depth Respiratory Pattern Tachypnea Blood Pressure 98/52 L Blood Pressure Mean 67 Blood Pressure Source Blood Pressure Position Blood Pressure Location Pulse Ox 100 Oxygen Delivery Method Nasal Cannula Nasal Cannula Oxygen Flow Rate (L/min) 3 3 04/14/25 06:56 04/14/25 07:00 04/14/25 09:35 Temperature 97.6 F L Temperature Source Oral Pulse Rate 102 H 105 H Respiratory Rate 24 H Respiratory Effort Respiratory Depth Respiratory Pattern Blood Pressure 93/57 L Blood Pressure Mean 69 Blood Pressure Source Blood Pressure Position Blood Pressure Location Pulse Ox 93 100 Oxygen Delivery Method Nasal Cannula Nasal Cannula Oxygen Flow Rate (L/min) 4 4 04/14/25 10:00 04/14/25 10:00 Temperature 97.6 F L Temperature Source Oral Pulse Rate 105 H 105 H Respiratory Rate 24 H 24 H Respiratory Effort Normal Respiratory Depth Normal Respiratory Pattern Normal Blood Pressure 93/57 L Blood Pressure Mean 69 Blood Pressure Source Monitor Blood Pressure Position Semi-Fowlers Blood Pressure Location Right Arm Pulse Ox 100 100 Oxygen Delivery Method Nasal Cannula Nasal Cannula Oxygen Flow Rate (L/min) 4 2 Weight Weight: 79 kg Body Mass Index (BMI) 30.8 EEG Results Procedure Details EEG Procedure Details: OLGA DONALDSON is a 80 year old F with a past medical history of , who presents for evaluation of Electroencephalogram on DATE at TIME Physical Exam Narrative General: The patient appears nutritionally appropriate, well-groomed, and appears comfortable in no acute distress. Mental Status:? The patient?s mental status was normal including orientation.? Mild expressive aphasia noticed with paraphrasic errot.? Cranial nerves:? Visual white full, and extra-ocular motion was intact. Symmetric face. Motor: Normal strength in all extremities. Sensation: Intact to touch in all extremities.? Coordination:? Bilateral finger to nose was normal.? There was no dysmetria. Gait:? deferred. Lab / Micro Data 04/14/25 02:27 04/14/25 02:27 Labs: Laboratory Results - last 24 hr 04/13/25 10:22: Procalcitonin 24.50 H 04/13/25 13:30: Lactic Acid 3.6 H* 04/13/25 18:45: Urine Color Yellow, Urine Clarity Sl. Cloudy, Urine pH 7.0, Ur Specific [place] 1.010, Urine Protein 30 H, Urine Glucose (UA) 100 H, Urine Ketones Negative, Urine Occult Blood 10 H, Urine Nitrite Negative, Urine Bilirubin Negative, Urine Urobilinogen Normal, Ur Leukocyte Esterase 500 H, Ur Random Sodium 28, Urine Creatinine 74.50, Urine Urea Nitrogen 368 04/13/25 21:29: Lactic Acid 2.4 H* 04/13/25 22:35: POC Glucose 289 H 04/14/25 02:27: WBC 6.9, RBC 2.94 L, Hgb 7.6 L, Hct 25.4 L, MCV 86.4, MCH 25.9 L, MCHC 29.9 L, RDW Std Deviation 53.6 H, RDW Coeff of [place]ij[place] 17.0 H, Plt Count 327, MPV 10.6, Sodium 136, Potassium 5.7 H, Chloride 99, Carbon Dioxide 21.7, Anion Gap 15, BUN 45 H, Creatinine 1.81 H, Estim Creat Clear Calc 24.20 L, Est GFR (MDRD) Non-Af 28 L, BUN/Creatinine Ratio 24.7 H, Glucose 319 H, Lactic Acid 2.1 H*, Calcium 10.8, Triglycerides 74, Cholesterol 121, LDL Cholesterol, Calc 71, VLDL Cholesterol 15, HDL Cholesterol 35 L, Cholesterol/HDL Ratio 3.44 04/14/25 06:27: POC Glucose 318 H 04/14/25 11:29: POC Glucose 293 H Micro: Microbiology 04/13/25 09:51 Mucosa - Nose SARS-CoV-2, Influenza & RSV (PCR) - Final Imaging Radiology Impression Echocardiogram 04/13/25 11:55 Interpretation Summary Mild concentric left ventricular hypertrophy. Normal LV size. The estimated ejection fraction is 20 %. Compared to previous study, the left ventricular systolic function has worsened.. Heavily calcified aortic valve with mild to moderate aortic valvular stenosis,Mean aortic valve gradient 15 mmHg. Mild to moderate aortic stenosis.Peak aortic valve gradient 24 mmHg.Dimensionless index 0.5 and a valve area 1.5 cm2,Cannot rule out bicuspid pathology with fusion of the left and noncoronary cusp Mild tricuspid regurgitation with top normal right-sided pressures, pulmonary pressure 31 mmHg Ordering Physician: Nestor Bartlett Referring Physician: Axel Nicholas Performed By: Jeet Walker RCS Brain CT 04/13/25 14:37 IMPRESSION: Focal hypodensity in the left frontal lobe. This may represent acute/subacute ischemic changes. Reading Location: [id number] Chest/Abdomen/Pelvis CT 04/13/25 14:37 IMPRESSION: Bilateral pleural effusions. Left lower lobe density likely representing some component of atelectasis. Superimposed infection can not be excluded. New large volume fluid within the bilateral flanks which may represent anasarca. Bilateral nonobstructive nephrolithiasis. Reading Location: [id number] Active Medications Active Medications Active Medications: Current Medications Generic Name Dose Route Start Last Admin Trade Name Freq PRN Reason Stop Dose Admin Acetaminophen 650 mg 04/13/25 11:47 Acetaminophen 325 Mg Tablet PO Q6H PRN PRN Pain 1-10 Or Fever>100.7 Albuterol Sulfate 2.5 mg 04/13/25 11:55 Albuterol 2.5 Mg/3 Ml Vial.Neb. INHALATION Q6H PRN shortness of breath or wheezing Albuterol/Ipratropium 3 ml 04/13/25 11:47 04/14/25 06:55 Ipratropium/Albuterol Sulfate 3 Ml Ampul.Neb INHALATION 3 ml Q6H.RT MINESH Administration Ascorbic Acid 250 mg 04/14/25 10:00 04/14/25 11:10 Ascorbic Acid 500 Mg Tablet PO Not Given DAILY MINESH Aspirin 81 mg 04/14/25 08:00 04/14/25 11:54 Aspirin 81 Mg Tab.Chew PO Not Given BREAKFAST MINESH Atorvastatin Calcium 40 mg 04/13/25 22:00 04/13/25 22:32 Atorvastatin Calcium 40 Mg Tablet PO Not Given QHS MINESH Azelastine HCl 1 spray 04/13/25 22:00 04/14/25 11:35 Azelastine Hcl Nasal.Sry NASAL 1 spray BID MINESH Administration Budesonide 0.5 mg 04/13/25 12:15 04/14/25 06:55 Budesonide Respules 0.5 Mg/2 Ml Ampul.Neb. INHALATION 0.5 mg Q12H.RT MINESH Administration Cyanocobalamin 1,000 mcg 04/14/25 10:00 04/14/25 11:10 Cyanocobalamin 500 Mcg Tablet PO Not Given DAILY MINESH Gabapentin 100 mg 04/13/25 22:00 04/13/25 22:32 Gabapentin 100 Mg Capsule PO Not Given QHS MINESH Glucagon 1 mg 04/13/25 18:21 Glucagon 1 Mg/Ml Syringe IM X1 PRN Hypoglycemia Protocol Guaifenesin 600 mg 04/13/25 22:00 04/14/25 11:10 Guaifenesin 600 Mg Tablet PO Not Given BID MINESH Heparin Sodium (Porcine) 5,000 unit 04/13/25 14:00 04/14/25 06:29 Heparin Injection (Vial) 5,000 Unit/Ml Vial SC 5,000 unit Q8 MINESH Administration Hydralazine HCl 5 mg 04/13/25 18:18 Hydralazine 20 Mg/Ml Vial IV 04/14/25 18:18 Q30M PRN maintain BP parameters with HR <60 Hydroxyzine Pamoate 12.5 mg 04/13/25 22:00 04/13/25 22:32 Hydroxyzine Huma 25 Mg Capsule PO Not Given QHS MINESH Sodium Chloride 250 mls @ 15 mls/hr 04/13/25 11:52 IV .[id number] PRN Saline Flush Sodium Chloride 250 mls @ 15 mls/hr 04/13/25 11:52 IV .[id number] PRN Additional IVPB Infusion Dextrose 250 mls @ 0 mls/hr 04/13/25 18:21 Dextrose 10%-Water IV .Q0M PRN HYPOGLYCEMIA Protocol As Directed Furosemide 500 mg/ N/A 50 mls @ 1 mls/hr 04/14/25 08:30 04/14/25 09:01 CONT INF 10 mg/hr .Q50H MINESH 1 mls/hr Administration 10 MG/HR Levofloxacin 750 mg in 150 mls @ 100 mls/hr 04/14/25 08:30 Levaquin Iv IV 04/21/25 10:01 Q48 MINESH Insulin Glargine 15 unit 04/13/25 22:00 04/14/25 11:36 Insulin Glargine-Yfgn 100 Unit/Ml Pen SC 15 unit BID MINESH Administration Insulin Human Lispro 0 unit 04/13/25 22:00 04/14/25 11:37 Insulin Lispro 100 Unit/Ml Insuln.Pen SC 6 unit ACHS [facility] Administration Protocol Ipratropium [place] 1 spray 04/13/25 12:06 Ipratropium [place] 0.06% Nasal [place] NASAL Q6H PRN allergy symptoms Labetalol HCl 10 - 20 mg 04/13/25 18:18 Labetalol 20 Mg/4 Ml Vial IV 04/14/25 18:18 Q10M PRN PRN maintain BP parameters with HR >/=60 Loratadine 10 mg 04/14/25 10:00 04/14/25 11:11 Loratadine 10 Mg Tablet PO Not Given DAILY [facility] Magnesium Chloride 128 mg 04/13/25 22:00 04/14/25 11:10 Magnesium Chloride 64 Mg Delay Rel.Tablet PO Not Given BID [facility] Melatonin 3 mg 04/13/25 11:47 Melatonin 3 Mg Tablet PO QHS PRN PRN INSOMNIA Metoprolol Tartrate 25 mg 04/13/25 22:00 Metoprolol Tartrate 25 Mg Tablet PO BID [facility] Protocol Multivitamins 1 tablet 04/14/25 10:00 04/14/25 11:10 Multivitamins,Therapeutic Tablet PO Not Given DAILY [facility] Ondansetron HCl 4 mg 04/13/25 11:47 Ondansetron 4 Mg/2 Ml Vial IV Q8H PRN PRN NAUSEA/VOMITING Pantoprazole Sodium 40 mg 04/14/25 10:00 04/14/25 11:11 Pantoprazole Sodium 40 Mg Tablet PO Not Given DAILY [facility] Psyllium Hydrophilic Mucilloid 1 packet 04/14/25 10:00 04/14/25 11:43 Psyllium 1 Packet PO Not Given DAILY [facility] Sacubitril/Valsartan 1 each 04/13/25 22:00 Sacubitril/Valsartan 24/26 Mg Tablet PO BID [facility] Sodium Chloride 10 - 40 ml 04/13/25 11:52 04/13/25 18:15 0.9% Saline Lock 10 Ml Syringe IV 10 ml UD PRN Administration SALINE FLUSH NIHSS NIHSS 1a. Level of Consciousness: 0 - Alert; keenly responsive 1b. LOC Questions: 0 - Answers BOTH questions correctly 1c. LOC Commands: 0 - Performs BOTH tasks correctly 2. Best Gaze: 0 - Normal 3. Visual: 0 - No visual loss 4. Facial Palsy: 0 - Normal symmetrical movements 5a. Left Arm: 0 - No drift; arm holds 90 (or 45) degrees for full 10 seconds 5b. Right Arm: 0 - No drift; arm holds 90 (or 45) degrees for full 10 seconds 6a. Left Le - No drift; leg holds 30-degree position for full 5 seconds 6b. Right Le - No drift; leg holds 30-degree position for full 5 seconds 7. Limb Ataxia: 0 - Absent 8. Sensory: 0 - Normal; no sensory loss 9. Best Language: 1 - [id number] aphasia; 10. Dysarthria: 0 - Normal 11. Extinction and Inattention: 0 - No abnormality Total: 1
--- NOTE | 2025-04-14 14:19 | PCM.CONS.C ---
Assessment & Plan Assessment/Plan (1) Acute exacerbation of chronic heart failure: PLAN: Acute on chronic with reduced ejection fraction, near castration class III, agree with the current intravenous diuresis via Lasix drip and continue to monitor daily I's and O's, renal function as well as potassium level but clinically she has improved and based on examination there are obvious signs of fluid overload specially with the recent echocardiographic study demonstrating worsening LV systolic function from baseline 35% to currently 20%. After achieving euvolemic status, we will restart her low-dose Entresto/metoprolol succinate/Jardiance if systolic BP would allow but for the time being her systolic blood pressure in the upper 90s for which the GDMT is on hold. If clinical response is suboptimal can consider the addition of inotropic therapy in the form of dobutamine. Once renal function back to baseline can restart her SGL 2 receptor antagonist, Jardiance (2) Acute on chronic hypoxic respiratory failure: PLAN: Likely secondary to the above CHF exacerbation superimposed on a possible pneumonia for which IV antibiotics are being initiated in addition to bronchodilators (3) Acute renal insufficiency: PLAN: Likely secondary to cardiovascular condition and acute CHF for which we will continue intravenous diuresis and follow renal function/potassium daily. Appreciate nephrology opinion. Currently nonoliguric and not in severe acidosis (4) Obesity (BMI 30.0-34.9): PLAN: As above (5) Pneumonia: QUALIFIERS: Laterality: bilateral Lung location: unspecified part of lung Pneumonia type: due to unspecified organism Qualified Code(s): J18.9 - Pneumonia, unspecified organism PLAN: Antibiotics as per primary team HPI Consult Data Date of Consult: 04/14/25 HPI Narrative Reason for Consultation: Decompensated congestive heart failure with reduced ejection fraction HPI Narrative: OLGA DONALDSON, is a 80 F who presents with significant respiratory distress being transferred from a nursing facility with hypoxic respiratory failure and worsening respiratory distress which on home she is on 2 L nasal cannula usually but currently with mental status changes and elevated procalcitonin up to 24.5 in addition to severely elevated NT proBNP 32,000 and associated echocardiographic study that demonstrated worsening baseline LV systolic function from 35% to currently 20% with evidence of mild to moderate aortic stenosis. She had evidence of distal organ hypoperfusion based on lactic acidosis with elevated lactic acid up to 3.6 and acute kidney injury as well from a baseline creatinine 1.0 to currently 1.5 but nonoliguric. She had evidence of hyperkalemia as well for which she was admitted to telemetry floor for further intravenous diuresis based on the obvious signs of fluid overload playing a role in cardiorenal syndrome. No definitive apparent precipitating etiology except the possibility of pneumonia based on leukocytosis and elevated procalcitonin. CT brain demonstrated no significant abnormalities except possible left frontal lobe subacute ischemic changes however due to waxing and waning mental status changes, no further MRI imaging was performed. She was also noted to have elevated troponin enzymes but flat 319/313 with no major acute EKG changes. She denies any chest pain of anginal quality Noncontrast CT abdomen and pelvis demonstrated bilateral nonobstructive renal calculi but no obvious significant pathology and following the initiation of Lasix drip she has clinically improved and mental status back to baseline. She was also started on IV antibiotics for suspected pneumonia [facility] Medical History COPD exacerbation Acute UTI Back muscle spasm Former smoker On home oxygen therapy Osteoporosis History of diabetes mellitus COPD exacerbation Hypoxia Elevated troponin Acute dyspnea COPD with exacerbation Anemia History of COPD Elevated brain natriuretic peptide (BNP) level Elevated troponin Acute hypoxemic respiratory failure Obesity (BMI 30.0-34.9) Elevated troponin Lactic acidosis Poor venous access Diabetic polyneuropathy Hypomagnesemia Debility Fracture of hip, left, closed Coronary artery disease Weakness Gastroenteritis Paronychia of left index finger Abscess Vaginal cyst Anxiety Depression Irregular heart beat Multiple thyroid nodules Postmenopausal bleeding Foraminal stenosis of lumbar region Lumbar spinal stenosis Diabetic retinopathy Colon polyp GERD (gastroesophageal reflux disease) Thyroid goiter Hyperlipidemia Hypokalemia Microcytic anemia Neurogenic bladder Hypophosphatemia Hypercalcemia Former smoker UTI (urinary tract infection) Iron deficiency anemia Aortic stenosis Hyponatremia Urine retention Chronic renal failure, stage 3 (moderate) Cellulitis and abscess of finger, unspecified Retinopathy Peripheral artery disease Leg weakness, bilateral GERD (gastroesophageal reflux disease) Chronic idiopathic constipation COPD (chronic obstructive pulmonary disease) Polypharmacy Hypertension Carpal tunnel syndrome of right wrist Strain of right rotator cuff capsule Rhinitis Urinary retention with incomplete bladder emptying Vitamin D deficiency Asthma Pruritus Goiter, nontoxic, multinodular Anemia Diabetes COPD (chronic obstructive pulmonary disease) History of constipation Hx of venous thrombosis and embolism History of malignant neoplasm of breast Hypertension Type 2 diabetes mellitus Asthma Home Medications ?Medication ?Instructions ?Recorded ?Last Taken ?Type aspirin 81 mg chewable tablet 81 mg PO DAILY HEART HEALTH 01/21/16 01/15/25 History magnesium oxide 400 mg (241.3 mg 400 mg PO BID SUPPLEMENT 08/16/18 01/15/25 History magnesium) tablet pantoprazole 40 mg tablet,delayed 40 mg PO DAILY ACID REFLUX 12/02/19 01/15/25 History release empagliflozin 10 mg tablet 10 mg PO DAILY DIABETES 10/18/20 01/15/25 History (Jardiance) sitagliptin phosphate 50 mg tablet 50 mg PO DAILY DIABETES 10/18/20 01/15/25 History (Januvia) multivitamin 1 tab PO DAILY VITAMIN 12/06/21 01/15/25 History pravastatin 20 mg tablet 20 mg PO DAILY CHOLESTEROL 12/06/21 01/15/25 History ascorbic acid (vitamin C) 250 mg 250 mg PO DAILY SUPPLEMENT 08/13/23 01/15/25 History tablet (Vitamin C) roflumilast 500 mcg tablet 500 mcg PO DAILY COPD 08/13/23 01/15/25 History insulin lispro 100 unit/mL 10 unit subcut TIDAC short acting 12/30/23 01/15/25 History subcutaneous pen (Humalog KwikPen insulin (U-100) Insulin) Held on 04/13/25. Instructions: Ordered budesonide 160 mcg-glycopyr 9 2 inh inhalation BID breathing 01/07/25 01/15/25 History mcg-formot 4.8 mcg/actuation HFA inhaler (Breztri Aerosphere) insulin glargine 100 unit/mL (3 20 unit subcut BID diabetes 01/07/25 01/15/25 History mL) subcutaneous pen (Lantus Solostar U-100 Insulin) ipratropium bromide 21 mcg (0.03 1 - 2 spray intranasal Q6H PRN 01/07/25 Unknown History %) nasal spray allergy symptoms lancets 28 gauge (TRUEplus Lancets) 01/07/25 Unknown History acetaminophen 500 mg tablet 1,000 mg PO Q6H PRN Pain Score 1-3 01/15/25 Unknown History azelastine 137 mcg (0.1 %) nasal 1 - 2 spray intranasal BID nasal 01/15/25 01/15/25 History spray spray mecobalamin (vitamin B12) 1,000 1,000 mcg PO DAILY health 01/15/25 01/15/25 History mcg chewable tablet (B12 Active) maintenance menthol 0.44 %-zinc oxide 20.6 % 1 applic topical 4X/DAY PRN skin 01/15/25 Unknown History topical ointment (CalaSoothe) irritation netarsudil 0.02 %-latanoprost 1 drp EACH EYE DAILY eye drops 01/15/25 01/15/25 History 0.005 % eye drops (Rocklatan) psyllium husk 0.4 gram capsule 0.4 g PO DAILY constipation 01/15/25 01/15/25 History (Daily Fiber) tirzepatide 5 mg/0.5 mL 5 mg subcut QWEEK diabetes 01/15/25 Unknown History subcutaneous pen injector (Mounjaro) potassium chloride 20 mEq 20 meq PO BID supplement 02/04/25 Unknown History tablet,extended release (K-Tab) ipratropium 0.5 mg-albuterol 3 mg 3 ml inhalation Q6H.RT sob #120 02/06/25 Unknown Rx (2.5 mg base)/3 mL nebulization amps soln albuterol sulfate 90 mcg/actuation 2 puff inhalation Q6H PRN 02/09/25 Unknown History aerosol inhaler shortness of breath or wheezing cetirizine 10 mg tablet 10 mg PO DAILY allergy 02/09/25 Unknown History hydroxyzine HCl 25 mg tablet 12.5 mg PO QHS allergies 02/09/25 Unknown History gabapentin 100 mg capsule 100 mg PO QHS NERVE PAIN 3 days 02/17/25 Unknown Rx #3 caps guaifenesin 600 mg tablet, 600 mg PO BID cough #0 tabs 02/17/25 Unknown Rx extended release 12 hr (Mucinex) sacubitril 24 mg-valsartan 26 mg 1 tab PO BID #60 tabs 03/25/25 Unknown Rx tablet (Entresto) furosemide 20 mg tablet 60 mg (3 x 20 mg) PO DAILY #90 tabs 04/08/25 Unknown Rx metoprolol tartrate 25 mg tablet 25 mg PO BID #60 tabs 04/08/25 Unknown Rx diazepam 2 mg tablet 2 mg PO BID muscle spasm 04/13/25 Unknown History Allergy/AdvReac Type Severity Reaction Status Date / Time adhesive tape (tape) Allergy NEEDS Verified 04/13/25 08:41 FOLLOW-UP cephalexin monohydrate (From Allergy Rash Verified 04/13/25 08:41 Keflex) clopidogrel bisulfate (From Allergy Other Verified 04/13/25 08:41 Plavix) oxycodone AdvReac Severe made me Verified 04/13/25 08:41 really crazy called legislative correspondent on people amoxicillin AdvReac YEAST Verified 04/13/25 08:41 INFECTION Family History Daughter Breast cancer Father Hypertension Sister Cancer Kidney disease Mother Pancreatic cancer Surgical History History of left hip hemiarthroplasty S/P fine needle aspiration (~10/2020) H/O dilation and curettage (~07/10/20) History of Achilles tendon repair Retinopathy History of lumpectomy of left breast Social History household members: spouse Smoking Status: Former smoker alcohol intake: never substance use type: does not use caffeine: Yes what type of physical activity do you participate in: none seatbelt use: always do you feel safe at home: Yes additional social history: [employer]- retired ROS ROS Narrative As per HPI Physical Exam Const alert and no apparent distress Constitutional Narrative: Oriented x 1 HEENT normocephalic and head/scalp atraumatic Eyes PERRL and EOMs intact bilaterally Neck full ROM and no lymphadenopathy Carotids: normal carotid upstroke Lymph Lymphatic: no lymphadenopathy noted Chest inspection of chest normal Resp Resp Narrative: Diminished air entry in bilateral bases but no wheezing or crackles Cardio Cardio Narrative: S1-S2 with a systolic ejection murmur 3 out of 6 in the left upper sternal border and a very soft S3 gallop and a laterally displaced PMI 3 cm GI normal to inspection, nondistended, normoactive bowel sounds Palpation: no hepatosplenomegaly Back/Spine no CVA tenderness Extremity Extremity Narrative: Mild edema in bilateral lower extremities with chronic venous stasis Objective Data Vital Signs: Vital Signs Temp Pulse Resp BP Pulse Ox O2 Del Method O2 Flow Rate 97.6 F L 105 H 24 H 93/57 L 98 Nasal Cannula 2 04/14/25 10:00 04/14/25 10:00 04/14/25 10:00 04/14/25 10:00 04/14/25 12:25 04/14/25 10:00 04/14/25 14:02 Oxygen Flow Rate (L/min) 2 Oxygen Delivery Method Nasal Cannula Weight: 174 lb 2.643 oz Body Mass Index (BMI) 30.8 Intake & Output: Intake and Output for Last 24 Hours 04/12/25 04/13/25 04/14/25 23:59 23:59 23:59 Intake Total 305 / 305 Output Total 1450 / 1450 50 / 50 Balance -1145 / -1145 -50 / -50 Lab / Micro Data 04/14/25 02:27 04/14/25 02:27 Labs: Laboratory Results - last 24 hr 04/13/25 13:30: Lactic Acid 3.6 H* 04/13/25 18:45: Urine Color Yellow, Urine Clarity Sl. Cloudy, Urine pH 7.0, Ur Specific Hopkins 1.010, Urine Protein 30 H, Urine Glucose (UA) 100 H, Urine Ketones Negative, Urine Occult Blood 10 H, Urine Nitrite Negative, Urine Bilirubin Negative, Urine Urobilinogen Normal, Ur Leukocyte Esterase 500 H, Ur Random Sodium 28, Urine Creatinine 74.50, Urine Urea Nitrogen 368 04/13/25 21:29: Lactic Acid 2.4 H* 04/13/25 22:35: POC Glucose 289 H 04/14/25 02:27: WBC 6.9, RBC 2.94 L, Hgb 7.6 L, Hct 25.4 L, MCV 86.4, MCH 25.9 L, MCHC 29.9 L, RDW Std Deviation 53.6 H, RDW Coeff of Vijay 17.0 H, Plt Count 327, MPV 10.6, Sodium 136, Potassium 5.7 H, Chloride 99, Carbon Dioxide 21.7, Anion Gap 15, BUN 45 H, Creatinine 1.81 H, Estim Creat Clear Calc 24.20 L, Est GFR (MDRD) Non-Af 28 L, BUN/Creatinine Ratio 24.7 H, Glucose 319 H, Lactic Acid 2.1 H*, Calcium 10.8, Triglycerides 74, Cholesterol 121, LDL Cholesterol, Calc 71, VLDL Cholesterol 15, HDL Cholesterol 35 L, Cholesterol/HDL Ratio 3.44 04/14/25 06:27: POC Glucose 318 H 04/14/25 11:29: POC Glucose 293 H Micro: Microbiology 04/13/25 09:51 Mucosa - Nose SARS-CoV-2, Influenza & RSV (PCR) - Final ABG Data Attestation: I personally reviewed and interpreted this ABG as follows: Rhythm Strip Rhythm Strip: Sinus Rhythm Cardiology Labs/Tests 04/13/25 13:30: Lactic Acid 3.6 H* 04/13/25 18:45: Urine Color Yellow, Urine Clarity Sl. Cloudy, Urine pH 7.0, Ur Specific Hopkins 1.010, Urine Protein 30 H, Urine Glucose (UA) 100 H, Urine Ketones Negative, Urine Occult Blood 10 H, Urine Nitrite Negative, Urine Bilirubin Negative, Urine Urobilinogen Normal, Ur Leukocyte Esterase 500 H 04/13/25 21:29: Lactic Acid 2.4 H* 04/14/25 02:27: WBC 6.9, RBC 2.94 L, Hgb 7.6 L, Hct 25.4 L, MCV 86.4, MCH 25.9 L, MCHC 29.9 L, Plt Count 327, MPV 10.6, Sodium 136, Potassium 5.7 H, Chloride 99, Carbon Dioxide 21.7, Anion Gap 15, BUN 45 H, Creatinine 1.81 H, Est GFR (MDRD) Non-Af 28 L, BUN/Creatinine Ratio 24.7 H, Glucose 319 H, Lactic Acid 2.1 H*, Calcium 10.8, Triglycerides 74, Cholesterol 121, VLDL Cholesterol 15, HDL Cholesterol 35 L, Cholesterol/HDL Ratio 3.44 Rhythm: EKG: Sinus rhythm with diffuse nonspecific ST segment changes and early depolarization ECHO: Stress Test: Cardiac Cath: PCI: CT Surgery: Holter monitor: EPS: PPM: CXR: Chest CT Scan: Radiography Diagnostic Testing: Radiology Impression Echocardiogram 04/13/25 11:55 Interpretation Summary Mild concentric left ventricular hypertrophy. Normal LV size. The estimated ejection fraction is 20 %. Compared to previous study, the left ventricular systolic function has worsened.. Heavily calcified aortic valve with mild to moderate aortic valvular stenosis,Mean aortic valve gradient 15 mmHg. Mild to moderate aortic stenosis.Peak aortic valve gradient 24 mmHg.Dimensionless index 0.5 and a valve area 1.5 cm2,Cannot rule out bicuspid pathology with fusion of the left and noncoronary cusp Mild tricuspid regurgitation with top normal right-sided pressures, pulmonary pressure 31 mmHg Ordering Physician: Nestor Bartlett Referring Physician: Axel Nicholas Performed By: Jeet Walker RCS Brain CT 04/13/25 14:37 IMPRESSION: Focal hypodensity in the left frontal lobe. This may represent acute/subacute ischemic changes. [facility]Pelvis CT 04/13/25 14:37 IMPRESSION: Bilateral pleural effusions. Left lower lobe density likely representing some component of atelectasis. Superimposed infection can not be excluded. New large volume fluid within the bilateral flanks which may represent anasarca. Bilateral nonobstructive nephrolithiasis. Reading Location: [id number] Risk Score for UA/STEMI Assesmment (YES = 1) Risk Stratification Applicable: No
--- NOTE | 2025-04-14 14:46 | PCM.CONS.R ---
Assessment & Plan Assessment/Plan (1) Acute renal insufficiency: (2) Acute hyperkalemia: (3) Acute exacerbation of chronic heart failure: PLAN: Plan This is an 80-year-old female with past medical history significant for diabetes mellitus type 2, history of COPD, history of congestive heart failure, coronary artery disease, hypertension, chronic anemia who presented to the emergency room 04/13 with complaints of shortness of breath, patient admitted for acute hypoxia secondary to acute on chronic heart failure reduced EF and concern for pneumonia. Chest x-ray showed vascular congestion. Noncontrast CT abdomen/pelvis showed bilateral pleural effusions as well as new large volume fluid within bilateral flanks concerning for anasarca, distended bladder (now has mccall). BNP 32,000. Echo from December 2024 showed EF 35 to 40%, evidence of diastolic dysfunction, moderate global hypokinesis of LV; Echo from this admission: Estimated ejection fraction 20%, compared to previous study left ventricular systolic function worsened, heavily calcified aortic valve with mild to moderate aortic valve stenosis; cardiology has been consulted. Patient is on Lasix drip. Nephrology consulted in view of elevated creatinine. Baseline creatinine has been ranging around 1 mg/dL even up until last hospitalization. Creatinine 1.2 on April 11, yesterday creatinine 1.5 and today creatinine 1.8 mg/dL. UA 30 protein, 10 occult blood, +leukocytes. Likely fluctuation in serum creatinine from cardiorenal syndrome physiology, patient also noted to have some lower blood pressures. Noncontrast CT abdomen and pelvis no hydroureteronephrosis, bilateral nonobstructive renal calculi, distended bladder, she now has Mccall. Patient is hypervolemic and recommend continue with Lasix drip. We will continue to monitor renal function closely. Patient is nonoliguric. No acute indication for renal placement therapy. Bicarb is normal. Potassium elevated at 5.7, hopefully with diuresis potassium will improve. Her oral potassium supplement is on hold. Will also add low potassium diet restrictions. Further orders forthcoming as hospitalization evolves, thank you for allowing us to participate in the care of Ms. Pollard. Assessment and plan reviewed with Dr. London. HPI Consult Data Date of Consult: 04/14/25 HPI Narrative HPI Narrative: OLGA POLLARD, is a 80 F with past medical history significant for diabetes mellitus type 2, history of COPD, history of congestive heart failure, coronary artery disease, hypertension, chronic anemia who presented to the emergency room yesterday with complaints of shortness of breath, patient admitted for acute hypoxia secondary to acute on chronic heart failure reduced EF and concern for pneumonia. Chest x-ray showed vascular congestion. Noncontrast CT abdomen/pelvis showed bilateral pleural effusions as well as new large volume fluid within bilateral flanks concerning for anasarca. BNP elevated 32,000. Echo from December 2024 showed EF 35 to 40%, evidence of diastolic dysfunction, moderate global hypokinesis of LV; Echo from this admission: Estimated ejection fraction 20%, compared to previous study left ventricular systolic function worsened, heavily calcified aortic valve with mild to moderate aortic valve stenosis. Patient was initially given Lasix 60 mg IV but now she is on Lasix drip. Patient was just hospitalized from April 02 to April 08 for acute on chronic hypoxic respiratory failure secondary to congestive heart failure exacerbation and was discharged on Lasix 60 mg daily. Nephrology consulted in view of elevated creatinine. Patient reports she has not been seen by nephrology in past. Reviewing past baseline creatinine trends baseline creatinine ranging around 1 mg/dL. During last hospitalization serum creatinine ranged 0.9 to 1 mg/dL. On April 11 serum creatinine 1.2 mg/dL. Yesterday in the ER serum creatinine 1.5 and today creatinine 1.8 mg/dL. Patient reports appetite has been good. Denies any nausea, vomiting, diarrhea before hospitalization. Reports good appetite in the hospital. Denies NSAIDs. Patient does have Mccall. [facility] Medical History COPD exacerbation Acute UTI Back muscle spasm Former smoker On home oxygen therapy Osteoporosis History of diabetes mellitus COPD exacerbation Hypoxia Elevated troponin Acute dyspnea COPD with exacerbation Anemia History of COPD Elevated brain natriuretic peptide (BNP) level Elevated troponin Acute hypoxemic respiratory failure Obesity (BMI 30.0-34.9) Elevated troponin Lactic acidosis Poor venous access Diabetic polyneuropathy Hypomagnesemia Debility Fracture of hip, left, closed Coronary artery disease Weakness Gastroenteritis Paronychia of left index finger Abscess Vaginal cyst Anxiety Depression Irregular heart beat Multiple thyroid nodules Postmenopausal bleeding Foraminal stenosis of lumbar region Lumbar spinal stenosis Diabetic retinopathy Colon polyp GERD (gastroesophageal reflux disease) Thyroid goiter Hyperlipidemia Hypokalemia Microcytic anemia Neurogenic bladder Hypophosphatemia Hypercalcemia Former smoker UTI (urinary tract infection) Iron deficiency anemia Aortic stenosis Hyponatremia Urine retention Chronic renal failure, stage 3 (moderate) Cellulitis and abscess of finger, unspecified Retinopathy Peripheral artery disease Leg weakness, bilateral GERD (gastroesophageal reflux disease) Chronic idiopathic constipation COPD (chronic obstructive pulmonary disease) Polypharmacy Hypertension Carpal tunnel syndrome of right wrist Strain of right rotator cuff capsule Rhinitis Urinary retention with incomplete bladder emptying Vitamin D deficiency Asthma Pruritus Goiter, nontoxic, multinodular Anemia Diabetes COPD (chronic obstructive pulmonary disease) History of constipation Hx of venous thrombosis and embolism History of malignant neoplasm of breast Hypertension Type 2 diabetes mellitus Asthma Home Medications ?Medication ?Instructions ?Recorded ?Last Taken ?Type aspirin 81 mg chewable tablet 81 mg PO DAILY HEART HEALTH 01/21/16 01/15/25 History magnesium oxide 400 mg (241.3 mg 400 mg PO BID SUPPLEMENT 08/16/18 01/15/25 History magnesium) tablet pantoprazole 40 mg tablet,delayed 40 mg PO DAILY ACID REFLUX 12/02/19 01/15/25 History release empagliflozin 10 mg tablet 10 mg PO DAILY DIABETES 10/18/20 01/15/25 History (Jardiance) sitagliptin phosphate 50 mg tablet 50 mg PO DAILY DIABETES 10/18/20 01/15/25 History (Januvia) multivitamin 1 tab PO DAILY VITAMIN 12/06/21 01/15/25 History pravastatin 20 mg tablet 20 mg PO DAILY CHOLESTEROL 12/06/21 01/15/25 History ascorbic acid (vitamin C) 250 mg 250 mg PO DAILY SUPPLEMENT 08/13/23 01/15/25 History tablet (Vitamin C) roflumilast 500 mcg tablet 500 mcg PO DAILY COPD 08/13/23 01/15/25 History insulin lispro 100 unit/mL 10 unit subcut TIDAC short acting 12/30/23 01/15/25 History subcutaneous pen (Humalog KwikPen insulin (U-100) Insulin) Held on 04/13/25. Instructions: Ordered budesonide 160 mcg-glycopyr 9 2 inh inhalation BID breathing 01/07/25 01/15/25 History mcg-formot 4.8 mcg/actuation HFA inhaler (Breztri Aerosphere) insulin glargine 100 unit/mL (3 20 unit subcut BID diabetes 01/07/25 01/15/25 History mL) subcutaneous pen (Lantus Solostar U-100 Insulin) ipratropium bromide 21 mcg (0.03 1 - 2 spray intranasal Q6H PRN 01/07/25 Unknown History %) nasal spray allergy symptoms lancets 28 gauge (TRUEplus Lancets) 01/07/25 Unknown History acetaminophen 500 mg tablet 1,000 mg PO Q6H PRN Pain Score 1-3 01/15/25 Unknown History azelastine 137 mcg (0.1 %) nasal 1 - 2 spray intranasal BID nasal 01/15/25 01/15/25 History spray spray mecobalamin (vitamin B12) 1,000 1,000 mcg PO DAILY health 01/15/25 01/15/25 History mcg chewable tablet (B12 Active) maintenance menthol 0.44 %-zinc oxide 20.6 % 1 applic topical 4X/DAY PRN skin 01/15/25 Unknown History topical ointment (CalaSoothe) irritation netarsudil 0.02 %-latanoprost 1 drp EACH EYE DAILY eye drops 01/15/25 01/15/25 History 0.005 % eye drops (Rocklatan) psyllium husk 0.4 gram capsule 0.4 g PO DAILY constipation 01/15/25 01/15/25 History (Daily Fiber) tirzepatide 5 mg/0.5 mL 5 mg subcut QWEEK diabetes 01/15/25 Unknown History subcutaneous pen injector (Prabhu) potassium chloride 20 mEq 20 meq PO BID supplement 02/04/25 Unknown History tablet,extended release (K-Tab) ipratropium 0.5 mg-albuterol 3 mg 3 ml inhalation Q6H.RT sob #120 02/06/25 Unknown Rx (2.5 mg base)/3 mL nebulization amps soln albuterol sulfate 90 mcg/actuation 2 puff inhalation Q6H PRN 02/09/25 Unknown History aerosol inhaler shortness of breath or wheezing cetirizine 10 mg tablet 10 mg PO DAILY allergy 02/09/25 Unknown History hydroxyzine HCl 25 mg tablet 12.5 mg PO QHS allergies 02/09/25 Unknown History gabapentin 100 mg capsule 100 mg PO QHS NERVE PAIN 3 days 02/17/25 Unknown Rx #3 caps guaifenesin 600 mg tablet, 600 mg PO BID cough #0 tabs 02/17/25 Unknown Rx extended release 12 hr (Mucinex) sacubitril 24 mg-valsartan 26 mg 1 tab PO BID #60 tabs 03/25/25 Unknown Rx tablet (Entresto) furosemide 20 mg tablet 60 mg (3 x 20 mg) PO DAILY #90 tabs 04/08/25 Unknown Rx metoprolol tartrate 25 mg tablet 25 mg PO BID #60 tabs 04/08/25 Unknown Rx diazepam 2 mg tablet 2 mg PO BID muscle spasm 04/13/25 Unknown History Allergy/AdvReac Type Severity Reaction Status Date / Time adhesive tape (tape) Allergy NEEDS Verified 04/13/25 08:41 FOLLOW-UP cephalexin monohydrate (From Allergy Rash Verified 04/13/25 08:41 Keflex) clopidogrel bisulfate (From Allergy Other Verified 04/13/25 08:41 Plavix) oxycodone AdvReac Severe made me Verified 04/13/25 08:41 really crazy 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 amoxicillin AdvReac YEAST Verified 04/13/25 08:41 INFECTION Family History Daughter Breast cancer Father Hypertension Sister Cancer Kidney disease Mother Pancreatic cancer Surgical History History of left hip hemiarthroplasty S/P fine needle aspiration (~10/2020) H/O dilation and curettage (~07/10/20) History of Achilles tendon repair Retinopathy History of lumpectomy of left breast Social History household members: spouse Smoking Status: Former smoker alcohol intake: never substance use type: does not use caffeine: Yes what type of physical activity do you participate in: none seatbelt use: always do you feel safe at home: Yes additional social history: [employer]- retired ROS ROS Narrative As in HPI Physical Exam Narrative Alert and oriented x 3, no apparent distress S1, S2, RRR Diminished breath sounds. No rales or rhonchi. Currently on room air. Abdomen soft, nontender, positive bowel sounds Trace edema bilateral lower legs Indwelling Mccall with clear yellow urine in bag Lab / Micro Data 04/14/25 02:27 04/14/25 02:27 Labs: Laboratory Results - last 24 hr 04/13/25 18:45: Urine Color Yellow, Urine Clarity Sl. Cloudy, Urine pH 7.0, Ur Specific [place] 1.010, Urine Protein 30 H, Urine Glucose (UA) 100 H, Urine Ketones Negative, Urine Occult Blood 10 H, Urine Nitrite Negative, Urine Bilirubin Negative, Urine Urobilinogen Normal, Ur Leukocyte Esterase 500 H, Ur Random Sodium 28, Urine Creatinine 74.50, Urine Urea Nitrogen 368 04/13/25 21:29: Lactic Acid 2.4 H* 04/13/25 22:35: POC Glucose 289 H 04/14/25 02:27: WBC 6.9, RBC 2.94 L, Hgb 7.6 L, Hct 25.4 L, MCV 86.4, MCH 25.9 L, MCHC 29.9 L, RDW Std Deviation 53.6 H, RDW Coeff of Vijay 17.0 H, Plt Count 327, MPV 10.6, Sodium 136, Potassium 5.7 H, Chloride 99, Carbon Dioxide 21.7, Anion Gap 15, BUN 45 H, Creatinine 1.81 H, Estim Creat Clear Calc 24.20 L, Est GFR (MDRD) Non-Af 28 L, BUN/Creatinine Ratio 24.7 H, Glucose 319 H, Hemoglobin A1c 7.8 H, Lactic Acid 2.1 H*, Calcium 10.8, Triglycerides 74, Cholesterol 121, LDL Cholesterol, Calc 71, VLDL Cholesterol 15, HDL Cholesterol 35 L, Cholesterol/HDL Ratio 3.44 04/14/25 06:27: POC Glucose 318 H 04/14/25 11:29: POC Glucose 293 H Micro: Microbiology 04/13/25 09:51 Mucosa - Nose SARS-CoV-2, Influenza & RSV (PCR) - Final Imaging Radiology Impression Echocardiogram 04/13/25 11:55 Interpretation Summary Mild concentric left ventricular hypertrophy. Normal LV size. The estimated ejection fraction is 20 %. Compared to previous study, the left ventricular systolic function has worsened.. Heavily calcified aortic valve with mild to moderate aortic valvular stenosis,Mean aortic valve gradient 15 mmHg. Mild to moderate aortic stenosis.Peak aortic valve gradient 24 mmHg.Dimensionless index 0.5 and a valve area 1.5 cm2,Cannot rule out bicuspid pathology with fusion of the left and noncoronary cusp Mild tricuspid regurgitation with top normal right-sided pressures, pulmonary pressure 31 mmHg Ordering Physician: Nestor Bartlett Referring Physician: Axel Nicholas Performed By: Jeet Walker RCS Brain CT 04/13/25 14:37 IMPRESSION: Focal hypodensity in the left frontal lobe. This may represent acute/subacute ischemic changes. Reading Location: [facility] Chest/Abdomen/Pelvis CT 04/13/25 14:37 IMPRESSION: Bilateral pleural effusions. Left lower lobe density likely representing some component of atelectasis. Superimposed infection can not be excluded. New large volume fluid within the bilateral flanks which may represent anasarca. Bilateral nonobstructive nephrolithiasis. Reading Location: [id number]
--- NOTE | 2025-04-14 14:48 | CASEMGMT ---
Social Work PHQ-9 not completed as pt would not be able to participate at this time. JERSEY Wells
[2025-04-14] MEDS: 0.9% Saline Lock 10 ML Syringe IV ×2 (20:35→23:16)
[2025-04-14] MEDS: levoFLOXacin IV 750 MG/150 ML BAG 100 MG IV (20:35)
[2025-04-14] MEDS: hydrOXYzine PAM 25 MG Capsule 12.5 MG PO (23:12)
[2025-04-14] MEDS: Magnesium Chloride 64 MG Delay Rel.Tablet 128 MG PO (23:15)
[2025-04-15] VITALS (13 sets, daily range): BP systolic 97–123; BP diastolic 55–65; PULSE 104–119; RESP 12–40; TEMP 36.4–37; O2SAT 89–100; BMI 30.7
[2025-04-15] MEDS: Heparin Injection (Vial) 5,000 UNIT/ML VIAL 5000 UNIT SC ×3 (06:09→21:08)
[2025-04-15] MEDS: Budesonide Respules 0.5 MG/2 ML AMPUL.NEB. INHALATION ×2 (07:00→19:19)
--- NOTE | 2025-04-15 07:34 | CPS ---
decreased O2 to Room air at this time
[2025-04-15 07:58] LABS: Hematocrit 26.8 % (37-47); Hemoglobin 8.0 g/dL (12.0-15.0); Mean Corp Hgb Conc 29.9 g/dL (32-36); Mean Corpuscular Volume 85.9 fL (81-99); Mean Platelet Vol. 10.6 fl (6.2-12.0); Platelet Count 360 K/mm3 (150-450); RBC Distribution Width CV 17.0 % (11.6-14.6); RBC Distribution Width SD 53.1 fl (35.1-43.9); Red Blood Count 3.12 M/mm3 (4.2-5.4); White Blood Count 9.1 K/mm3 (4.4-11.0)
[2025-04-15 09:00] LABS: Anion Gap 12 (5-15); BUN 56 mg/dL (4-19); BUN/Creat Ratio 26.1 RATIO (10-20); Calcium,Total 11.1 mg/dL (7.6-11.0); Carbon Dioxide 25.5 mmol/L (21.0-32.0); Chloride 102 mmol/L (98-108); Estimated Creatinine Clearance 20.48 ml/min (50-250); Glucose 134 mg/dL (70-99); Potassium 5.2 mmol/L (3.3-5.1)
--- NOTE | 2025-04-15 09:31 | PN.NEURO_ITS ---
Assessment and Plan: Neuro Assessment/Plan Telestroke Attending Progress Note (Audio-Video interface) 80 y/o woman with h/o COPD on home oxygen, heart failure and DM p/w worsening of shortness of breath. Due to the concern of altered mental state, CT head was performed which showed subacute left frontal stroke. CT chest abdomen pelvis showed bilateral pleural effusions, left lower lobe density likely representing some component of atelectasis but superimposed infection cannot be excluded, new large volume fluid within the bilateral flanks concerning for anasarca. Given the CT brain finding, MRI brain was ordered. Today, patient reports feeling better and noticed to have mild aphasia mainly expressive/paraphrasic error with b/l LE drift. NIHSS-3. TTE- EF-20%. MRI brain could not be performed due to incompatibility with bladder stimulator Diagnosis: Left MCA stroke, cryptogenic vs heart failure with low EF Plan: Continue ASA and statin. Follow up repeat CT head today along with carotid doppler if CTA of head and neck can't be performed due to elevated creatinine. Follow up cardiology recs. 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 I personally attended this patient and spent a total time of 30 minutes evaluating this patient including clinical assessment, review of chart, medical history imaging, and determining appropriate treatment and workup. Subject: Neurology Subjective Today, patient reports feeling better and noticed to have mild aphasia mainly expressive/paraphrasic error with b/l LE drift. NIHSS-3. TTE- EF-20%. MRI brain could not be performed due to incompatibility with bladder stimulator EEG Results Procedure Details EEG Procedure Details: OLGA DONALDSON is a 80 year old F with a past medical history of , who presents for evaluation of Electroencephalogram on DATE at TIME Objective Data Objective Data Vital Signs: Vital Signs Temp Pulse Resp BP Pulse Ox O2 Del Method O2 Flow Rate 97.6 F L 104 H 28 H 97/65 100 Nasal Cannula 1 04/15/25 02:39 04/15/25 06:59 04/15/25 06:59 04/15/25 02:39 04/15/25 06:59 04/15/25 06:59 04/15/25 06:59 FiO2 35 04/15/25 03:48 Oxygen Flow Rate (L/min) 1 Oxygen Delivery Method Nasal Cannula Weight: 78.7 kg Body Mass Index (BMI) 30.7 Intake & Output: Intake and Output for Last 24 Hours 04/13/25 04/14/25 04/15/25 23:59 23:59 23:59 Intake Total 305 / 305 150 / 390 240 / 240 Output Total 1450 / 1450 50 / 400 650 / 650 Balance -1145 / -1145 100 / -10 -410 / -410 Lab / Micro Data 04/15/25 07:14 04/15/25 07:14 Labs: Laboratory Results - last 24 hr 04/14/25 02:27: Hemoglobin A1c 7.8 H 04/14/25 11:29: POC Glucose 293 H 04/14/25 17:02: POC Glucose 188 H 04/14/25 22:55: POC Glucose 278 H 04/15/25 06:08: POC Glucose 162 H 04/15/25 07:14: WBC 9.1, RBC 3.12 L, Hgb 8.0 L, Hct 26.8 L, MCV 85.9, MCH 25.6 L , MCHC 29.9 L, RDW Std Deviation 53.1 H, RDW Coeff of Vijay 17.0 H, Plt Count 360, MPV 10.6, Sodium 139, Potassium 5.2 H, Chloride 102, Carbon Dioxide 25.5, Anion Gap 12, BUN 56 H, Creatinine 2.14 H, Estim Creat Clear Calc 20.48 L, Est GFR (MDRD) Non-Af 23 L, BUN/Creatinine Ratio 26.1 H, Glucose 134 H, Calcium 11.1 H Micro: Microbiology 04/13/25 09:51 Mucosa - Nose SARS-CoV-2, Influenza & RSV (PCR) - Final Rhythm Strip Rhythm Strip: Sinus Rhythm NIHSS NIHSS 1a. Level of Consciousness: 0 - Alert; keenly responsive 1b. LOC Questions: 0 - Answers BOTH questions correctly 1c. LOC Commands: 0 - Performs BOTH tasks correctly 2. Best Gaze: 0 - Normal 3. Visual: 0 - No visual loss 4. Facial Palsy: 0 - Normal symmetrical movements 5a. Left Arm: 0 - No drift; arm holds 90 (or 45) degrees for full 10 seconds 5b. Right Arm: 0 - No drift; arm holds 90 (or 45) degrees for full 10 seconds 6a. Left Le - Drift; leg falls by the end of 5-seconds, but does not hit bed 6b. Right Le - Drift; leg falls by the end of 5-seconds, but does not hit bed 7. Limb Ataxia: 0 - Absent 8. Sensory: 0 - Normal; no sensory loss 9. Best Language: 1 - [id number] aphasia; 10. Dysarthria: 0 - Normal 11. Extinction and Inattention: 0 - No abnormality Total: 3
--- NOTE | 2025-04-15 13:28 | PN_ITS ---
Progress Note She is resting comfortable in bed. Assessment & Plan Assessment/Plan (1) Acute on chronic hypoxic respiratory failure: PLAN: Likely secondary to the above CHF exacerbation superimposed on a possible pneumonia for which IV antibiotics are being initiated in addition to br onchodilators (2) Acute exacerbation of chronic heart failure: PLAN: Acute on chronic with reduced ejection fraction, class III - Continue with intravenous diuresis via Lasix drip and continue to monitor daily I's and O's, renal function as well as potassium level but clinically she has improved and based on examination there are obvious signs of fluid overload specially with the recent echocardiographic study demonstrating worsening LV systolic function from baseline 35% to currently 20%. - After achieving euvolemic status, we will uptitrate her Entresto/metoprolol succinate and add Jardiance and spironolactone. If clinical response is suboptimal can consider the addition of inotropic therapy in the form of dobutamine - No inication for ischemic evaluation at this point
--- NOTE | 2025-04-15 13:47 | PCM.PN.CARD ---
Subjective Subjective she is resting comfortable in bed Objective Data Vital Signs: Vital Signs Temp Pulse Resp BP Pulse Ox O2 Del Method O2 Flow Rate 98.2 F 108 H 36 H 99/60 95 Nasal Cannula 2 04/15/25 09:45 04/15/25 09:45 04/15/25 09:45 04/15/25 09:45 04/15/25 13:42 04/15/25 13:42 04/15/25 13:42 FiO2 35 04/15/25 03:48 Oxygen Flow Rate (L/min) 2 Oxygen Delivery Method Nasal Cannula Weight: 173 lb 8.061 oz Body Mass Index (BMI) 30.7 Intake & Output: Intake and Output for Last 24 Hours 04/13/25 04/14/25 04/15/25 23:59 23:59 23:59 Intake Total 305 / 305 150 / 390 240 / 240 Output Total 1450 / 1450 50 / 400 650 / 650 Balance -1145 / -1145 100 / -10 -410 / -410 Lab / Micro Data 04/15/25 07:14 04/15/25 07:14 Labs: Laboratory Results - last 24 hr 04/14/25 02:27: Hemoglobin A1c 7.8 H 04/14/25 17:02: POC Glucose 188 H 04/14/25 22:55: POC Glucose 278 H 04/15/25 06:08: POC Glucose 162 H 04/15/25 07:14: WBC 9.1, RBC 3.12 L, Hgb 8.0 L, Hct 26.8 L, MCV 85.9, MCH 25.6 L, MCHC 29.9 L, RDW Std Deviation 53.1 H, RDW Coeff of Vijay 17.0 H, Plt Count 360, MPV 10.6, Sodium 139, Potassium 5.2 H, Chloride 102, Carbon Dioxide 25.5, Anion Gap 12, BUN 56 H, Creatinine 2.14 H, Estim Creat Clear Calc 20.48 L, Est GFR (MDRD) Non-Af 23 L, BUN/Creatinine Ratio 26.1 H, Glucose 134 H, Calcium 11.1 H 04/15/25 12:08: POC Glucose 93 Micro: Microbiology 04/13/25 09:30 Blood Culture (Wb) - Anticubital Left Blood Culture - Preliminary No growth in 48 hours. 04/13/25 08:30 Blood Culture (Wb) - Anticubital Left Blood Culture - Preliminary No growth in 48 hours. Rhythm Strip Rhythm Strip: Sinus Rhythm Cardiology Labs/Tests 04/14/25 02:27: Hemoglobin A1c 7.8 H 04/15/25 07:14: WBC 9.1, RBC 3.12 L, Hgb 8.0 L, Hct 26.8 L, MCV 85.9, MCH 25.6 L, MCHC 29.9 L, Plt Count 360, MPV 10.6, Sodium 139, Potassium 5.2 H, Chloride 102, Carbon Dioxide 25.5, Anion Gap 12, BUN 56 H, Creatinine 2.14 H, Est GFR (MDRD) Non-Af 23 L, BUN/Creatinine Ratio 26.1 H, Glucose 134 H, Calcium 11.1 H Echocardiogram 04/13/25 11:55 Interpretation Summary Mild concentric left ventricular hypertrophy. Normal LV size. The estimated ejection fraction is 20 %. Compared to previous study, the left ventricular systolic function has worsened.. Heavily calcified aortic valve with mild to moderate aortic valvular stenosis,Mean aortic valve gradient 15 mmHg. Mild to moderate aortic stenosis.Peak aortic valve gradient 24 mmHg.Dimensionless index 0.5 and a valve area 1.5 cm2,Cannot rule out bicuspid pathology with fusion of the left and noncoronary cusp Mild tricuspid regurgitation with top normal right-sided pressures, pulmonary pressure 31 mmHg Ordering Physician: Nestor Bartlett Referring Physician: Axel Nicholas Performed By: Jeet Walker RCS Brain CT 04/13/25 14:37 IMPRESSION: Focal hypodensity in the left frontal lobe. This may represent acute/subacute ischemic changes. Reading Location: [facility] Chest/Abdomen/Pelvis CT 04/13/25 14:37 IMPRESSION: Bilateral pleural effusions. Left lower lobe density likely representing some component of atelectasis. Superimposed infection can not be excluded. New large volume fluid within the bilateral flanks which may represent anasarca. Bilateral nonobstructive nephrolithiasis. Physical Exam Const no apparent distress Resp Auscultation: crackles Cardio Jugular Venous Distention: JVD Rate: regular rate GI normal to inspection, nondistended, normoactive bowel sounds Extremity General Extremity: edema Assessment & Plan Assessment/Plan (1) Acute on chronic hypoxic respiratory failure: PLAN: Likely secondary to the above CHF exacerbation superimposed on a possible pneumonia for which IV antibiotics are being initiated in addition to bronchodilators (2) Acute exacerbation of chronic heart failure: PLAN: Acute on chronic with reduced ejection fraction, class III - Continue with intravenous diuresis via Lasix drip and continue to monitor daily I's and O's, renal function as well as potassium level but clinically she has improved and based on examination there are obvious signs of fluid overload specially with the recent echocardiographic study demonstrating worsening LV systolic function from baseline 35% to currently 20%. - After achieving euvolemic status, we will uptitrate her Entresto/metoprolol succinate and add Jardiance and spironolactone. If clinical response is suboptimal can consider the addition of inotropic therapy in the form of dobutamine - No indication for ischemic evaluation at this point
[2025-04-15] MEDS: Furosemide 500 MG in Empty Viaflex 50 mL 1 EACH CONT INF (18:05)
--- NOTE | 2025-04-15 18:08 | PCM.PN.HOSP ---
Reason for Visit Chief Complaint: Shortness of breath Subjective Subjective Patient was seen and examined today, nursing states that she has been refusing to take her medications. I briefly talked with cardiology and they recommended continuing IV diuresis. Objective Data Objective Data Vital Signs: Vital Signs Temp Pulse Resp BP Pulse Ox O2 Del Method O2 Flow Rate 98.6 F 119 H 30 H 115/59 L 97 Nasal Cannula 2 04/15/25 15:00 04/15/25 15:00 04/15/25 15:00 04/15/25 15:00 04/15/25 15:00 04/15/25 15:00 04/15/25 15:00 FiO2 35 04/15/25 03:48 Oxygen Flow Rate (L/min) 2 Oxygen Delivery Method Nasal Cannula Weight: 78.7 kg Body Mass Index (BMI) 30.7 Intake & Output: Intake and Output for Last 24 Hours 04/13/25 04/14/25 04/15/25 23:59 23:59 23:59 Intake Total 305 / 305 150 / 390 273.07 / 273.07 Output Total 1450 / 1450 50 / 400 650 / 650 Balance -1145 / -1145 100 / -10 -376.93 / -376.93 Lab / Micro Data 04/15/25 07:14 04/15/25 07:14 Labs: Laboratory Results - last 24 hr 04/14/25 22:55: POC Glucose 278 H 04/15/25 06:08: POC Glucose 162 H 04/15/25 07:14: WBC 9.1, RBC 3.12 L, Hgb 8.0 L, Hct 26.8 L, MCV 85.9, MCH 25.6 L, MCHC 29.9 L, RDW Std Deviation 53.1 H, RDW Coeff of Vijay 17.0 H, Plt Count 360, MPV 10.6, Sodium 139, Potassium 5.2 H, Chloride 102, Carbon Dioxide 25.5, Anion Gap 12, BUN 56 H, Creatinine 2.14 H, Estim Creat Clear Calc 20.48 L, Est GFR (MDRD) Non-Af 23 L, BUN/Creatinine Ratio 26.1 H, Glucose 134 H, Calcium 11.1 H 04/15/25 12:08: POC Glucose 93 04/15/25 16:39: POC Glucose 82 Micro: Microbiology 04/13/25 09:30 Blood Culture (Wb) - Anticubital Left Blood Culture - Preliminary No growth in 48 hours. 04/13/25 08:30 Blood Culture (Wb) - Anticubital Left Blood Culture - Preliminary No growth in 48 hours. 04/13/25 09:51 Mucosa - Nose SARS-CoV-2, Influenza & RSV (PCR) - Final Rhythm Strip Rhythm Strip: Sinus Rhythm Physical Exam Const alert, oriented x3 and no apparent distress Constitutional Narrative: Patient appears frail General Appearance: cooperative, well kempt and well developed Orientation / Consciousness: awake, oriented to person and oriented to place HEENT normocephalic, head/scalp atraumatic and moist oral mucous membranes Eyes PERRL, EOMs intact bilaterally and conjunctivae normal Neck supple, no JVD, thyroid normal and no carotid bruits General: trachea midline Resp normal respiratory effort, no retractions, no use of accessory muscles and clear to auscultation bilaterally Auscultation: Negative for rales, rhonchi or wheezes Cardio regular rate, regular rhythm, S1 normal heart sound, S2 normal heart sound, no rub and no gallops GI normal to inspection, nondistended, normoactive bowel sounds, soft to palpation, non-tender and non-distended Extremity no clubbing, cyanosis or edema Skin no rashes or lesions noted General Skin Exam: no breakdown Neuro CN's II-XII intact bilaterally, moves all extremities, no focal motor deficits and no sensory deficits noted Sensorium / Orientation: awake, alert, oriented to person and oriented to place Speech: speech normal Psych Psych Narrative: Patient has flat affect Assessment & Plan Assessment/Plan (1) CHF exacerbation: PLAN: Plan 1. Acute exacerbation of chronic diastolic congestive heart failure-patient will remain on IV Lasix, labs will be monitored #2 ischemic cardiomyopathy-complicates care, management, recovery, and prognosis, EF is 20% #3 chronic hypoxic respiratory failure secondary to COPD and chronic diastolic congestive heart failure-pulse ox will be monitored, oxygen will be adjusted accordingly #4 acute kidney injury-BMP will be monitored, but may be necessary to stop the patient's IV Lasix #5 hyperkalemia-patient's BMP will be repeated tomorrow #6 possible community-acquired pneumonia-patient remains on Levaquin at this time, blood cultures showed no growth in 48 hours. #7 noncompliance by patient-patient has been refusing to take her oral medications, I will have a discussion with the patient's family about her care tomorrow Total clinical time spent by myself addressing the patient's medical issues, reviewing all of her data, and collaborating with patient's care team: 35-minute Charges/Coding Visit Charges Inpatient E&M: 32619 Subs Hosp L2
--- NOTE | 2025-04-15 18:39 | PCM.HOSP.N ---
Hospitalist Note I had a lengthy conversation with the patient's and son by phone brendaight, they want everything done to treat the patient at this point, I talked to them about the fact she may have had a left frontal stroke and also talked to them about the fact she has a severe cardiomyopathy. Finally, I talked to them about the fact she has been refusing her medications, the intimated to me that they would want further means carried out to make sure she takes her medicine (? Feeding tube). Also mention that the patient's renal function is declining and it may be necessary to stop her IV Lasix. It is my opinion that they do not fully understand how ill the patient is at this point or they are in denial. I told him that I would keep in touch with them if any major changes in her medical condition occurs.
--- NOTE | 2025-04-15 19:25 | CPS ---
Found pt on 1L spo2 was 88-89% RR 36 HR 115 moderate resp distress . BS with exp wheezing and scattered crackles. Offered bipap. Pt declined. RN aware. Notified RN during aerosol treatment.
--- NOTE | 2025-04-15 20:37 | NURSING ---
Blood sugar 69 was able to assist patient to drink an orange juice.
[2025-04-16] VITALS (9 sets, daily range): BP systolic 102–107; BP diastolic 40–66; PULSE 93–121; RESP 16–34; TEMP 36.5–36.9; O2SAT 95–100; BMI 30.5
[2025-04-16] MEDS: 0.9% Saline Lock 10 ML Syringe IV (01:41)
[2025-04-16] MEDS: Heparin Injection (Vial) 5,000 UNIT/ML VIAL 5000 UNIT SC ×3 (06:15→22:35)
[2025-04-16 06:48] LABS: Anion Gap 15 (5-15); BUN 53 mg/dL (4-19); BUN/Creat Ratio 29.0 RATIO (10-20); Calcium,Total 10.9 mg/dL (7.6-11.0); Carbon Dioxide 25.8 mmol/L (21.0-32.0); Chloride 103 mmol/L (98-108); Estimated Creatinine Clearance 23.87 ml/min (50-250); Glucose 95 mg/dL (70-99); Potassium 4.5 mmol/L (3.3-5.1)
[2025-04-16] MEDS: Budesonide Respules 0.5 MG/2 ML AMPUL.NEB. INHALATION ×2 (07:12→19:26)
[2025-04-16 09:16] LABS: Ferritin 183 ng/mL (22-378); Iron 14 ug/dL (50-170); Iron Binding Capacity,Unsat 200 ug/dL (228-428)
[2025-04-16 09:17] LABS: Iron Binding Capacity,Total 214 ug/dL (250-450)
[2025-04-16] MEDS: Psyllium 1 PACKET PO (09:26)
[2025-04-16] MEDS: Magnesium Chloride 64 MG Delay Rel.Tablet 128 MG PO ×2 (09:26→22:40)
[2025-04-16] MEDS: levoFLOXacin IV 750 MG/150 ML BAG 100 MG IV (10:47)
[2025-04-16] MEDS: Insulin Glargine-YFGN 100 UNIT/ML Pen 15 UNIT SC ×2 (10:47→22:33)
--- NOTE | 2025-04-16 11:41 | PN.CARD_ITS ---
Objective Data Vital Signs: Vital Signs Temp Pulse Resp BP Pulse Ox O2 Del Method O2 Flow Rate 98.4 F 106 H 16 106/66 96 Nasal Cannula 2 04/16/25 09:22 04/16/25 09:22 04/16/25 09:22 04/16/25 09:22 04/16/25 09:22 04/16/25 09:33 04/16/25 10:21 FiO2 35 04/15/25 03:48 Oxygen Flow Rate (L/min) 2 Oxygen Delivery Method Nasal Cannula Weight: 172 lb 6.424 oz Body Mass Index (BMI) 30.5 Intake & Output: Intake and Output for Last 24 Hours 04/14/25 04/15/25 04/16/25 23:59 23:59 23:59 Intake Total 150 / 390 733.07 / 733.07 Output Total 50 / 400 2200 / 2200 700 / 700 Balance 100 / -10 -1466.93 / -1466.93 -700 / -700 Lab / Micro Data 04/15/25 07:14 04/16/25 05:10 Labs: Laboratory Results - last 24 hr 04/15/25 12:08: POC Glucose 93 04/15/25 16:39: POC Glucose 82 04/15/25 20:20: POC Glucose 69 L 04/15/25 20:59: POC Glucose 92 04/16/25 05:10: Sodium 144, Potassium 4.5, Chloride 103, Carbon Dioxide 25.8, Anion Gap 15, BUN 53 H, Creatinine 1.83 H, Estim Creat Clear Calc 23.87 L, Est GFR (MDRD) Non-Af 27 L, BUN/Creatinine Ratio 29.0 H, Glucose 95, Calcium 10.9, I shyla 14 L, TIBC 214 L, Iron Saturation 6.5 L, Unsaturated IBC 200 L, Ferritin 183 04/16/25 06:13: POC Glucose 102 Micro: Microbiology 04/13/25 09:30 Blood Culture (Wb) - Anticubital Left Blood Culture - Preliminary No growth in 48 hours. 04/13/25 08:30 Blood Culture (Wb) - Anticubital Left Blood Culture - Preliminary No growth in 48 hours. Rhythm Strip Rhythm Strip: Sinus Rhythm Cardiology Labs/Tests 04/16/25 05:10: Sodium 144, Potassium 4.5, Chloride 103, Carbon Dioxide 25.8, Anion Gap 15, BUN 53 H, Creatinine 1.83 H, Est GFR (MDRD) Non-Af 27 L, B UN/Creatinine Ratio 29.0 H, Glucose 95, Calcium 10.9, Iron 14 L, TIBC 214 L, I shyla Saturation 6.5 L, Ferritin 183 Echocardiogram 04/13/25 11:55 Interpretation Summary Mild concentric left ventricular hypertrophy. Normal LV size. The estimated ejection fraction is 20 %. Compared to previous study, the left ventricular systolic function has worsened.. Heavily calcified aortic valve with mild to moderate aortic valvular stenosis,Mean aortic valve gradient 15 mmHg. Mild to moderate aortic stenosis.Peak aortic valve gradient 24 mmHg.Dimensionless index 0.5 and a valve area 1.5 cm2,Cannot rule out bicuspid pathology with fusion of the left and noncoronary cusp Mild tricuspid regurgitation with top normal right-sided pressures, pulmonary pressure 31 mmHg Ordering Physician: Nestor Bartlett Referring Physician: Axel Nicholas Performed By: Jeet Walker RCS Brain CT 04/13/25 14:37 IMPRESSION: Focal hypodensity in the left frontal lobe. This may represent acute/subacute ischemic changes. Reading Location: [facility]-1 Chest/Abdomen/Pelvis CT 04/13/25 14:37 IMPRESSION: Bilateral pleural effusions. Left lower lobe density likely representing some component of atelectasis. Superimposed infection can not be excluded. New large volume fluid within the bilateral flanks which may represent anasarca. Bilateral nonobstructive nephrolithiasis. Physical Exam Const no apparent distress Chest inspection of chest normal Resp normal respiratory effort Auscultation: crackles Cardio S1 normal heart sound and S2 normal heart sound Jugular Venous Distention: JVD GI normal to inspection, nondistended, normoactive bowel sounds Extremity General Extremity: edema Assessment & Plan Assessment/Plan (1) CHF exacerbation: QUALIFIERS: Heart failure type: systolic Qualified Code(s): I 50.23 - Acute on chronic systolic (congestive) heart failure PLAN: Acute on chronic with reduced ejection fraction, class III Stage C EF 20% - Continue with intravenous diuresis via Lasix drip and continue to monitor daily I's and O's, renal function as well as potassium level but clinically she has improved and based on examination there are obvious signs of fluid overload specially with the recent echocardiographic study demonstrating worsening LV systolic function from baseline 35% to currently 20%. - Increase Entresto to 49/51mg BID. if she is having hypotension and unable to titrate her GDMT. Switch her entresto to losartan 50 mg daily. - After achieving euvolemic status, we will uptitrate her metoprolol succinate and add Jardiance and spironolactone. She is reaching euvolemia. By tomorrow she can be switched to 40 Lasix IV BID then oral afterwards. - No indication for ischemic evaluation at this point. (2) Stroke: QUALIFIERS: CVA mechanism: unspecified Qualified Code(s): I63.9 - Cerebral infarction, unspecified PLAN: Left MCA stroke, cryptogenic on CT subacute. unable to obtain MRI, bladder simulator is incompatible with MRI. Continue with aspirin and atorvastatin (3) Chronic hypoxic respiratory failure: PLAN: Acute on chronic hypoxic respiratory failure: PLAN: Likely secondary to the above CHF exacerbation superimposed on a possible pneumonia for which IV antibiotics are being initiated in addition to bronchodilators
--- NOTE | 2025-04-16 18:08 | PN.HOSP_ITS ---
Reason for Visit Chief Complaint: Shortness of breath Subjective Subjective Patient was seen and examined today, nursing states that she talked her by phone today and seem to know who she was talking to. Her son was in the room today at the time of my examination, I explained to him that her mentation may be getting worse due to underlying dementia or the fact that she had a small stroke that was diagnosed during this admission. I talked briefly with cardiology about her care, they recommended transitioning her over to oral Lasix tomorrow. Objective Data Objective Data Vital Signs: Vital Signs Temp Pulse Resp BP Pulse Ox O2 Del Method O2 Flow Rate 98.0 F 106 H 16 102/40 L 100 Nasal Cannula 2 04/16/25 14:00 04/16/25 14:00 04/16/25 14:00 04/16/25 14:00 04/16/25 14:00 04/16/25 14:00 04/16/25 14:00 FiO2 35 04/15/25 03:48 Oxygen Flow Rate (L/min) 2 Oxygen Delivery Method Nasal Cannula Weight: 78.2 kg Body Mass Index (BMI) 30.5 Intake & Output: Intake and Output for Last 24 Hours 04/14/25 04/15/25 04/16/25 23:59 23:59 23:59 Intake Total 150 / 390 733.07 / 733.07 525 / 525 Output Total 50 / 400 2200 / 2200 1150 / 1150 Balance 100 / -10 -1466.93 / -1466.93 -625 / -625 Lab / Micro Data 04/15/25 07:14 04/16/25 05:10 Labs: Laboratory Results - last 24 hr 04/15/25 20:20: POC Glucose 69 L 04/15/25 20:59: POC Glucose 92 04/16/25 05:10: Sodium 144, Potassium 4.5, Chloride 103, Carbon Dioxide 25.8, Anion Gap 15, BUN 53 H, Creatinine 1.83 H, Estim Creat Clear Calc 23.87 L, Est GFR (MDRD) Non-Af 27 L, BUN/Creatinine Ratio 29.0 H, Glucose 95, Calcium 10.9, I shyla 14 L, TIBC 214 L, Iron Saturation 6.5 L, Unsaturated IBC 200 L, Ferritin 183 04/16/25 06:13: POC Glucose 102 04/16/25 10:44: POC Glucose 218 H 04/16/25 16:03: POC Glucose 321 H Micro: Microbiology 04/13/25 09:30 Blood Culture (Wb) - Anticubital Left Blood Culture - Preliminary No growth in 48 hours. 04/13/25 08:30 Blood Culture (Wb) - Anticubital Left Blood Culture - Preliminary No growth in 48 hours. 04/13/25 09:51 Mucosa - Nose SARS-CoV-2, Influenza & RSV (PCR) - Final Rhythm Strip Rhythm Strip: Sinus Rhythm Physical Exam Narrative alert, oriented x2 and no apparent distress Constitutional Narrative: Patient appears frail General Appearance: cooperative, well kempt and well developed Orientation / Consciousness: awake, oriented to person and oriented to place HEENT normocephalic, head/scalp atraumatic and moist oral mucous membranes Eyes PERRL, EOMs intact bilaterally and conjunctivae normal Neck supple, no JVD, thyroid normal and no carotid bruits General: trachea midline Resp normal respiratory effort, no retractions, no use of accessory muscles and clear to auscultation bilaterally Auscultation: Negative for rales, rhonchi or wheezes Cardio regular rate, regular rhythm, S1 normal heart sound, S2 normal heart sound, no rub and no gallops GI normal to inspection, nondistended, normoactive bowel sounds, soft to palpation, non-tender and non-distended Extremity no clubbing, cyanosis or edema Skin no rashes or lesions noted General Skin Exam: no breakdown Neuro CN's II-XII intact bilaterally, moves all extremities, no focal motor deficits and no sensory deficits noted Sensorium / Orientation: awake, alert, oriented to person and oriented to place Speech: speech normal Psych Psych Narrative: Patient has flat affect Assessment & Plan Assessment/Plan (1) Stroke: QUALIFIERS: CVA mechanism: unspecified Qualified Code(s): I63.9 - Cerebral infarction, unspecified (2) CHF exacerbation: QUALIFIERS: Heart failure type: systolic Qualified Code(s): I 50.23 - Acute on chronic systolic (congestive) heart failure PLAN: Plan 1. Acute exacerbation of chronic diastolic congestive heart failure-patient will remain on IV Lasix, labs will be monitored, anticipate possibly changing patient over to oral Lasix tomorrow #2 ischemic cardiomyopathy-complicates care, management, recovery, and prognosis, EF is 20% #3 chronic hypoxic respiratory failure secondary to COPD and chronic diastolic congestive heart failure-pulse ox will be monitored, oxygen will be adjusted accordingly #4 acute kidney injury-BMP will be monitored #5 hyperkalemia-corrected at this time #6 possible community-acquired pneumonia-patient remains on Levaquin at this time, blood cultures showed no growth in 48 hours. #7 Ischemic stroke left frontal lobe-left MCA distribution-continue aspirin and statin Total clinical time spent by myself addressing the patient's medical issues, reviewing all of her data, and collaborating with patient's care team: 35-minute Charges/Coding Visit Charges Inpatient E&M: 62287 Subs Hosp L2
--- NOTE | 2025-04-16 18:15 | CDU_ITS ---
Reason For Study Reason For Study: Left MCA stroke Rt. Velocities/BP Lt. Velocities/BP Prox CCA 44.7/5 cm/sec. Prox CCA 41.9/6 cm/sec. Mid CCA 40.9/5 cm/sec. Mid CCA 37.1/6.9 cm/sec. Dist CCA 34.3/3.1 cm/sec. Dist CCA 40.9 cm/sec. Prox ICA 85.3/20.1 cm/sec. Prox ICA 62.6/12.6 cm/sec. Mid ICA 57.9/13.5 cm/sec. Mid ICA 51.3/9.7 cm/sec. Dist ICA 58.9/16.3 cm/sec. Dist ICA 69.2/14.5 cm/sec. Rt. ICA/CCA = 2.09. Lt. ICA/CCA = 1.87. Prox ECA 42.8 cm/sec. Prox ECA 35.2/3.1 cm/sec. Rt. Vert. 65.5/9.7 cm/sec. Lt. Vert. 66.4/12.6 cm/sec. Right Extracranial There is homogeneous, smooth atherosclerotic plaque noted in the right common carotid artery. There is heterogeneous, irregular atherosclerotic plaque noted in the right internal carotid artery. There is heterogeneous, irregular atherosclerotic plaque noted in the right external carotid artery. Antegrade flow is noted in the right vertebral artery. Left Extracranial There is heterogeneous, irregular atherosclerotic plaque noted in the left common carotid artery. There is heterogeneous, irregular atherosclerotic plaque noted in the left internal carotid artery. There is heterogeneous, irregular atherosclerotic plaque noted in the left external carotid artery. Antegrade flow is noted in the left vertebral artery. Procedure Carotid Duplex [id number]. This is a Carotid Duplex examination using B-mode, color flow and specral Doppler. Exam performed portable in patient room. VL/Carotid Duplex Ultrasound Interpretation Summary Mild (<50%) stenosis right extracranial internal carotid. Mild (<50%) stenosis left extracranial internal carotid. Flow within the vertebral arteries is antegrade bilaterally. Ordering Physician: Lucio Borden Referring Physician: Axel Nicholas Performed By: Marley Moncada RVT
[2025-04-17] VITALS (12 sets, daily range): BP systolic 91–108; BP diastolic 54–59; PULSE 88–112; RESP 16–34; TEMP 36.2–36.7; O2SAT 90–100; BMI 30.6
[2025-04-17] MEDS: Budesonide Respules 0.5 MG/2 ML AMPUL.NEB. INHALATION ×2 (06:41→19:07)
[2025-04-17] MEDS: Heparin Injection (Vial) 5,000 UNIT/ML VIAL 5000 UNIT SC ×3 (06:45→21:12)
[2025-04-17] MEDS: Magnesium Chloride 64 MG Delay Rel.Tablet 128 MG PO ×2 (10:59→21:13)
[2025-04-17] MEDS: Psyllium 1 PACKET PO (11:00)
[2025-04-17] MEDS: Insulin Glargine-YFGN 100 UNIT/ML Pen 15 UNIT SC ×2 (11:02→21:13)
--- NOTE | 2025-04-17 11:43 | PCM.PN.REN ---
Subjective Subjective Sitting in chair. No overnight events. States breathing is better. Objective Data Objective Data Vital Signs: Vital Signs Temp Pulse Resp BP Pulse Ox O2 Del Method O2 Flow Rate 97.7 F L 112 H 20 H 105/59 L 98 Nasal Cannula 2 04/17/25 10:56 04/17/25 10:56 04/17/25 10:56 04/17/25 10:56 04/17/25 10:56 04/17/25 10:56 04/17/25 10:56 FiO2 35 04/15/25 03:48 Oxygen Flow Rate (L/min) 2 Oxygen Delivery Method Nasal Cannula Weight: 78.4 kg Body Mass Index (BMI) 30.6 Intake & Output: Intake and Output for Last 24 Hours 04/15/25 04/16/25 04/17/25 23:59 23:59 23:59 Intake Total 733.07 / 733.07 953.75 / 953.75 12.17 / 12.17 Output Total 2200 / 2200 1450 / 1450 500 / 500 Balance -1466.93 / -1466.93 -496.25 / -496.25 -487.83 / -487.83 Lab / Micro Data 04/15/25 07:14 04/16/25 05:10 Labs: Laboratory Results - last 24 hr 04/16/25 10:44: POC Glucose 218 H 04/16/25 16:03: POC Glucose 321 H 04/16/25 22:29: POC Glucose 278 H 04/17/25 06:43: POC Glucose 223 H Micro: Microbiology 04/13/25 09:30 Blood Culture (Wb) - Anticubital Left Blood Culture - Preliminary No growth in 48 hours. 04/13/25 08:30 Blood Culture (Wb) - Anticubital Left Blood Culture - Preliminary No growth in 48 hours. 04/13/25 09:51 Mucosa - Nose SARS-CoV-2, Influenza & RSV (PCR) - Final Rhythm Strip Rhythm Strip: Sinus Rhythm Physical Exam Narrative Alert and oriented, no apparent distress S1, S2, RRR Diminished breath sounds. No wheezes, rales or rhonchi. Abdomen soft, nontender, positive bowel sounds no edema bilateral lower legs or feet Indwelling Mccall with clear yellow urine in bag Assessment & Plan Assessment/Plan (1) Acute renal insufficiency: (2) Acute hyperkalemia: (3) Acute exacerbation of chronic heart failure: PLAN: Plan This is an 80-year-old female with past medical history significant for diabetes mellitus type 2, history of COPD, history of congestive heart failure, coronary artery disease, hypertension, chronic anemia who presented to the emergency room 04/13 with complaints of shortness of breath, patient admitted for acute hypoxia secondary to acute on chronic heart failure reduced EF and concern for pneumonia. Chest x-ray showed vascular congestion. Noncontrast CT abdomen/pelvis showed bilateral pleural effusions as well as new large volume fluid within bilateral flanks concerning for anasarca, distended bladder (now has mccall). BNP 32,000. Echo from December 2024 showed EF 35 to 40%, evidence of diastolic dysfunction, moderate global hypokinesis of LV; Echo from this admission: Estimated ejection fraction 20%, compared to previous study left ventricular systolic function worsened, heavily calcified aortic valve with mild to moderate aortic valve stenosis; cardiology following. No plan for ischemic evaluation at this time. - LIA superimposed on possible CKD stage 3. Baseline SCr was ranging ~1-1.2mg/dL. Patient was on Lasix drip, transitioned to intermittent Lasix IV. Now on oral Lasix. No lab work today. Creatinine 1.2 on April 11, --> SCr 1.8 mg/dL 04/14, SCr peaked 2.14 04/15, lab work from yesterday serum creatinine 1.8. UA 30 protein, 10 occult blood, +leukocytes. Likely fluctuation in serum creatinine from cardiorenal syndrome physiology, and renal hypoperfusion from hypotension. Noncontrast CT abdomen and pelvis no hydroureteronephrosis, bilateral nonobstructive renal calculi, distended bladder, she now has Mccall. Per cumulative I&O patient is net negative 3.5 L. Continue on oral lasix. May need to allow for higher SCr values so to achieve euvolemia. Volume status improved. No acute indication for MANAGER APPOINTMENT. Will follow SCr trajectory. K+ normal. We will arrange for hospital follow-up in [place] office once discharged from hospital. Nephrology plan reviewed wt Dr. Borden. Assessment and plan reviewed with Dr. London.
--- NOTE | 2025-04-17 12:17 | CASEMGMT ---
Discharge Planning Clinical updates sent to [facility] with note to submit for precert. Mariana Wilson DC Planning Asst.
--- NOTE | 2025-04-17 17:27 | PN.HOSP_ITS ---
Reason for Visit Chief Complaint: Shortness of breath Subjective Subjective Patient was seen and examined today, she is more alert and appropriate. She remains on nasal cannula oxygen. I talked briefly with nephrology about her care. Patient was changed over to oral Lasix today. Objective Data Objective Data Vital Signs: Vital Signs Temp Pulse Resp BP Pulse Ox O2 Del Method O2 Flow Rate 97.4 F L 99 18 103/54 L 100 Nasal Cannula 2 04/17/25 14:56 04/17/25 14:56 04/17/25 14:56 04/17/25 14:56 04/17/25 14:56 04/17/25 15:00 04/17/25 14:56 FiO2 35 04/15/25 03:48 Oxygen Flow Rate (L/min) 2 Oxygen Delivery Method Nasal Cannula Weight: 78.4 kg Body Mass Index (BMI) 30.6 Intake & Output: Intake and Output for Last 24 Hours 04/15/25 04/16/25 04/17/25 23:59 23:59 23:59 Intake Total 733.07 / 733.07 953.75 / 953.75 312.17 / 312.17 Output Total 2200 / 2200 1450 / 1450 775 / 775 Balance -1466.93 / -1466.93 -496.25 / -496.25 -462.83 / -462.83 Lab / Micro Data 04/15/25 07:14 04/16/25 05:10 Labs: Laboratory Results - last 24 hr 04/16/25 22:29: POC Glucose 278 H 04/17/25 06:43: POC Glucose 223 H 04/17/25 11:04: POC Glucose 194 H 04/17/25 16:36: POC Glucose 194 H Micro: Microbiology 04/13/25 09:30 Blood Culture (Wb) - Anticubital Left Blood Culture - Preliminary No growth in 48 hours. 04/13/25 08:30 Blood Culture (Wb) - Anticubital Left Blood Culture - Preliminary No growth in 48 hours. 04/13/25 09:51 Mucosa - Nose SARS-CoV-2, Influenza & RSV (PCR) - Final Radiography Diagnostic Testing: Radiology Impression Carotid Duplex 04/16/25 18:15 Interpretation Summary Mild (<50%) stenosis right extracranial internal carotid. Mild (<50%) stenosis left extracranial internal carotid. Flow within the vertebral arteries is antegrade bilaterally. Ordering Physician: Lucio Bodren Referring Physician: Axel Nicholas Performed By: Marley Moncada RVT Rhythm Strip Rhythm Strip: Sinus Rhythm Physical Exam Narrative alert, oriented x2 and no apparent distress Constitutional Narrative: Patient appears frail General Appearance: cooperative, well kempt and well developed Orientation / Consciousness: awake, oriented to person and oriented to place HEENT normocephalic, head/scalp atraumatic and moist oral mucous membranes Eyes PERRL, EOMs intact bilaterally and conjunctivae normal Neck supple, no JVD, thyroid normal and no carotid bruits General: trachea midline Resp normal respiratory effort, no retractions, no use of accessory muscles and clear to auscultation bilaterally Auscultation: Negative for rales, rhonchi or wheezes Cardio regular rate, regular rhythm, S1 normal heart sound, S2 normal heart sound, no rub and no gallops GI normal to inspection, nondistended, normoactive bowel sounds, soft to palpation, non-tender and non-distended Extremity no clubbing, cyanosis or edema Skin no rashes or lesions noted General Skin Exam: no breakdown Neuro CN's II-XII intact bilaterally, moves all extremities, no focal motor deficits and no sensory deficits noted Sensorium / Orientation: awake, alert, oriented to person and oriented to place Speech: speech normal Psych Psych Narrative: Patient has flat affect Assessment & Plan Assessment/Plan (1) Stroke: QUALIFIERS: CVA mechanism: unspecified Qualified Code(s): I63.9 - Cerebral infarction, unspecified (2) CHF exacerbation: QUALIFIERS: Heart failure type: systolic Qualified Code(s): I 50.23 - Acute on chronic systolic (congestive) heart failure PLAN: Plan 1. Acute exacerbation of chronic diastolic congestive heart failure-patient will remain on oral Lasix, labs will be monitored, patient will need pre-CERT to return to group home care #2 ischemic cardiomyopathy-complicates care, management, recovery, and prognosis, EF is 20% #3 chronic hypoxic respiratory failure secondary to COPD and chronic diastolic congestive heart failure-pulse ox will be monitored, oxygen will be adjusted accordingly #4 acute kidney injury-BMP will be monitored #5 hyperkalemia-corrected at this time #6 possible community-acquired pneumonia-patient remains on Levaquin at this time, blood cultures showed no growth in 48 hours. I will continue antibiotics for total of 7 days and then discontinue them. #7 Ischemic stroke left frontal lobe-left MCA distribution-continue aspirin and statin Total clinical time spent by myself addressing the patient's medical issues, reviewing all of her data, and collaborating with patient's care team: 35-minute Charges/Coding Visit Charges Inpatient E&M: 31553 Subs Hosp L2
[2025-04-17] MEDS: 0.9% Saline Lock 10 ML Syringe IV (21:28)
[2025-04-18] VITALS (7 sets, daily range): BP systolic 100–121; BP diastolic 52–84; PULSE 94–128; RESP 18–32; TEMP 36.1–36.6; O2SAT 97–99; BMI 30.6; BMI 29.5
[2025-04-18] MEDS: Heparin Injection (Vial) 5,000 UNIT/ML VIAL 5000 UNIT SC ×3 (05:49→22:42)
[2025-04-18 06:18] LABS: Anion Gap 12 (5-15); BUN 61 mg/dL (4-19); BUN/Creat Ratio 32.7 RATIO (10-20); Calcium,Total 11.3 mg/dL (7.6-11.0); Carbon Dioxide 28.5 mmol/L (21.0-32.0); Chloride 109 mmol/L (98-108); Estimated Creatinine Clearance 23.21 ml/min (50-250); Glucose 94 mg/dL (70-99); Potassium 4.1 mmol/L (3.3-5.1)
--- NOTE | 2025-04-18 10:13 | PCM.PN.REN ---
Subjective Subjective Resting in bed. No overnight events. Objective Data Objective Data Vital Signs: Vital Signs Temp Pulse Resp BP Pulse Ox O2 Del Method O2 Flow Rate 97.6 F L 98 22 H 106/58 L 97 Nasal Cannula 2 04/18/25 02:55 04/18/25 02:55 04/18/25 02:55 04/18/25 02:55 04/18/25 02:55 04/18/25 06:50 04/18/25 06:50 FiO2 35 04/15/25 03:48 Oxygen Flow Rate (L/min) 2 Oxygen Delivery Method Nasal Cannula Weight: 75.5 kg Body Mass Index (BMI) 29.5 Intake & Output: Intake and Output for Last 24 Hours 04/16/25 04/17/25 04/18/25 23:59 23:59 23:59 Intake Total 953.75 / 953.75 712.17 / 712.17 Output Total 1450 / 1450 1250 / 1450 600 / 600 Balance -496.25 / -496.25 -537.83 / -737.83 -600 / -600 Lab / Micro Data 04/15/25 07:14 04/18/25 04:51 Labs: Laboratory Results - last 24 hr 04/17/25 11:04: POC Glucose 194 H 04/17/25 16:36: POC Glucose 194 H 04/17/25 21:06: POC Glucose 197 H 04/18/25 04:51: Sodium 149 H, Potassium 4.1, Chloride 109 H, Carbon Dioxide 28.5, Anion Gap 12, BUN 61 H, Creatinine 1.85 H, Estim Creat Clear Calc 23.21 L, Est GFR (MDRD) Non-Af 27 L, BUN/Creatinine Ratio 32.7 H, Glucose 94, Calcium 11.3 H 04/18/25 05:46: POC Glucose 87 Micro: Microbiology 04/13/25 08:30 Blood Culture (Wb) - Anticubital Left Blood Culture - Final No growth in 5 days. 04/13/25 09:30 Blood Culture (Wb) - Anticubital Left Blood Culture - Preliminary No growth in 48 hours. 04/13/25 09:51 Mucosa - Nose SARS-CoV-2, Influenza & RSV (PCR) - Final Radiography Diagnostic Testing: Radiology Impression Carotid Duplex 04/16/25 18:15 Interpretation Summary Mild (<50%) stenosis right extracranial internal carotid. Mild (<50%) stenosis left extracranial internal carotid. Flow within the vertebral arteries is antegrade bilaterally. Ordering Physician: Lucio Borden Referring Physician: Axel Nicholas Performed By: Marley Moncada RVT Rhythm Strip Rhythm Strip: Sinus Rhythm Physical Exam Narrative Alert and oriented, no apparent distress S1, S2, RRR Lungs clear anteriorly and posteriorly. No rhonchi or rales noted. Abdomen soft, nontender, positive bowel sounds no edema bilateral lower legs or feet Indwelling Mccall with clear yellow urine in bag Assessment & Plan Assessment/Plan (1) Acute renal insufficiency: (2) Acute hyperkalemia: (3) Acute exacerbation of chronic heart failure: PLAN: Plan This is an 80-year-old female with past medical history significant for diabetes mellitus type 2, history of COPD, history of congestive heart failure, coronary artery disease, hypertension, chronic anemia who presented to the emergency room 04/13 with complaints of shortness of breath, patient admitted for acute hypoxia secondary to acute on chronic heart failure reduced EF and concern for pneumonia. Chest x-ray showed vascular congestion. Noncontrast CT abdomen/pelvis showed bilateral pleural effusions as well as new large volume fluid within bilateral flanks concerning for anasarca, distended bladder (now has mccall). BNP 32,000. Echo from December 2024 showed EF 35 to 40%, evidence of diastolic dysfunction, moderate global hypokinesis of LV; Echo from this admission: Estimated ejection fraction 20%, compared to previous study left ventricular systolic function worsened, heavily calcified aortic valve with mild to moderate aortic valve stenosis; cardiology following. No plan for ischemic evaluation at this time. - LIA superimposed on possible CKD stage 3. Baseline SCr was ranging ~1-1.2mg/dL. Patient was on Lasix drip, transitioned to intermittent Lasix IV. Now on oral Lasix. No lab work today. Creatinine 1.2 on April 11, --> SCr 1.8 mg/dL 04/14, SCr peaked 2.14 04/15, serum creatinine today 1.85. Likely fluctuation in serum creatinine from cardiorenal syndrome physiology, and renal hypoperfusion from hypotension. Noncontrast CT abdomen and pelvis no hydroureteronephrosis, bilateral nonobstructive renal calculi, distended bladder, she has Mccall. Per cumulative I&O patient is net negative 4.1 L. Continue on oral lasix 40mg po bid. May need to allow for higher SCr values so to achieve euvolemia. Volume status much improved. 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 Will follow SCr trajectory. K+ normal. We will arrange for hospital follow-up in [place] office once discharged from hospital. Possible discharge to ECF. Assessment and plan reviewed with Dr. London.
--- NOTE | 2025-04-18 10:14 | CASEMGMT ---
Social Work- SW spoke with pt spouse, Sarita, to answer questions regarding LTC. Pt spouse agreeable to discussion with Jaylyn/[facility]. SW forwarded pt spouse contact to Jaylyn. SW provided pt spouse with SW direct contact for any additional questions. Pt sleeping at this time and did not participate in conversation. SW remains available to follow. Pt currently pend precert for return to [facility]. TANIA Elizabeth
--- NOTE | 2025-04-18 10:25 | WOUNDNOTE ---
Was asked by nursing to assess buttocks. shear injury noted to bilateral buttocks. some moisture noted to the cleft. gently cleansed and pat dry. applied calmoseptine as a moisture barrier. the shear injury was present on admission. unable to get consent for wound photo since patient is confused. no photo taken at this time.
[2025-04-18] MEDS: Psyllium 1 PACKET PO (10:29)
[2025-04-18] MEDS: Magnesium Chloride 64 MG Delay Rel.Tablet 128 MG PO ×2 (10:29→22:43)
--- NOTE | 2025-04-18 16:28 | CASEMGMT ---
Social Work- MILE received notice from [facility]/Jaylyn that contact was made with pt spouse. Pt spouse will discuss [facility] MABEL parameters with family and follow-up with Jaylyn. MILE remains available to follow. Plan: HERMELINDA; pend precert TANIA Elizabeth
--- NOTE | 2025-04-18 18:45 | PCM.PN.HOSP ---
Reason for Visit Chief Complaint: Shortness of breath Subjective Subjective Patient was seen and examined today, she voices no complaints to this examiner. She remains on 2 L of oxygen at this time, patient's creatinine today was 1.85 which is stable. Objective Data Objective Data Vital Signs: Vital Signs Temp Pulse Resp BP Pulse Ox O2 Del Method O2 Flow Rate 97.8 F 99 20 H 100/52 L 99 Nasal Cannula 2 04/18/25 16:40 04/18/25 16:40 04/18/25 16:40 04/18/25 16:40 04/18/25 16:40 04/18/25 16:40 04/18/25 16:40 FiO2 35 04/15/25 03:48 Oxygen Flow Rate (L/min) 2 Oxygen Delivery Method Nasal Cannula Weight: 75.5 kg Body Mass Index (BMI) 29.5 Intake & Output: Intake and Output for Last 24 Hours 04/16/25 04/17/25 04/18/25 23:59 23:59 23:59 Intake Total 953.75 / 953.75 712.17 / 712.17 Output Total 1450 / 1450 1250 / 1450 600 / 600 Balance -496.25 / -496.25 -537.83 / -737.83 -600 / -600 Lab / Micro Data 04/15/25 07:14 04/18/25 04:51 Labs: Laboratory Results - last 24 hr 04/17/25 21:06: POC Glucose 197 H 04/18/25 04:51: Sodium 149 H, Potassium 4.1, Chloride 109 H, Carbon Dioxide 28.5, Anion Gap 12, BUN 61 H, Creatinine 1.85 H, Estim Creat Clear Calc 23.21 L, Est GFR (MDRD) Non-Af 27 L, BUN/Creatinine Ratio 32.7 H, Glucose 94, Calcium 11.3 H 04/18/25 05:46: POC Glucose 87 04/18/25 11:38: POC Glucose 67 L 04/18/25 12:10: POC Glucose 90 04/18/25 16:45: POC Glucose 131 H Micro: Microbiology 04/13/25 09:30 Blood Culture (Wb) - Anticubital Left Blood Culture - Final No growth in 5 days. 04/13/25 08:30 Blood Culture (Wb) - Anticubital Left Blood Culture - Final No growth in 5 days. 04/13/25 09:51 Mucosa - Nose SARS-CoV-2, Influenza & RSV (PCR) - Final Rhythm Strip Rhythm Strip: Sinus Rhythm Physical Exam Narrative alert, oriented x2 and no apparent distress Constitutional Narrative: Patient appears frail General Appearance: cooperative, well kempt and well developed Orientation / Consciousness: awake, oriented to person and oriented to place HEENT normocephalic, head/scalp atraumatic and moist oral mucous membranes Eyes PERRL, EOMs intact bilaterally and conjunctivae normal Neck supple, no JVD, thyroid normal and no carotid bruits General: trachea midline Resp normal respiratory effort, no retractions, no use of accessory muscles and clear to auscultation bilaterally Auscultation: Negative for rales, rhonchi or wheezes Cardio regular rate, regular rhythm, S1 normal heart sound, S2 normal heart sound, no rub and no gallops GI normal to inspection, nondistended, normoactive bowel sounds, soft to palpation, non-tender and non-distended Extremity no clubbing, cyanosis or edema Skin no rashes or lesions noted General Skin Exam: no breakdown Neuro CN's II-XII intact bilaterally, moves all extremities, no focal motor deficits and no sensory deficits noted Sensorium / Orientation: awake, alert, oriented to person and oriented to place Speech: speech normal Psych Psych Narrative: Patient has flat affect Assessment & Plan Assessment/Plan (1) CHF exacerbation: QUALIFIERS: Heart failure type: systolic Qualified Code(s): I50.23 - Acute on chronic systolic (congestive) heart failure (2) Stroke: QUALIFIERS: CVA mechanism: unspecified Qualified Code(s): I63.9 - Cerebral infarction, unspecified PLAN: Plan 1. Acute exacerbation of chronic diastolic congestive heart failure-patient will remain on oral Lasix, labs will be monitored, patient will need pre-CERT to return to [facility] #2 ischemic cardiomyopathy-complicates care, management, recovery, and prognosis, EF is 20% #3 chronic hypoxic respiratory failure secondary to COPD and chronic diastolic congestive heart failure-pulse ox will be monitored, oxygen will be adjusted accordingly #4 acute kidney injury-BMP will be monitored as necessary, I have decided to lower the patient's Lasix dose to 60 mg a day #5 hyperkalemia-corrected at this time #6 possible community-acquired pneumonia-I have decided to discontinue the patient's Levaquin, I feel she has completed a course of treatment #7 Ischemic stroke left frontal lobe-left MCA distribution-continue aspirin and statin Total clinical time spent by myself addressing the patient's medical issues, reviewing all of her data, and collaborating with patient's care team: 35-minute Charges/Coding Visit Charges Inpatient E&M: 55737 Subs Hosp L2
[2025-04-18] MEDS: Budesonide Respules 0.5 MG/2 ML AMPUL.NEB. INHALATION (19:37)
[2025-04-18] MEDS: hydrOXYzine PAM 25 MG Capsule PO (20:38)
--- NOTE | 2025-04-18 20:39 | CPS ---
Patient is complaining of shortness of breath at this time, she is tachycardic and seems highly anxious. Her breath sounds remain clear and diminished and her oxygen saturation is 98% on 2L nasal cannula. She is tachypneic and is declining to go on the bipap currently. She continues to try to get out of bed and wants someones hand to hold or for someone to remain at the bedside with her at all times. RN was made aware. Aerosol therapy did not seem to improve her symptoms or appearance of distress.
[2025-04-18] MEDS: 0.9% Saline Lock 10 ML Syringe IV (22:42)
[2025-04-18] MEDS: Insulin Glargine-YFGN 100 UNIT/ML Pen 15 UNIT SC (22:43)
[2025-04-19] VITALS (16 sets, daily range): BP systolic 100–120; BP diastolic 48–80; PULSE 81–168; RESP 16–28; TEMP 36.2–37.3; O2SAT 85–100; BMI 29.5; BMI 29.3
--- NOTE | 2025-04-19 04:04 | PCM.HOSP.N ---
Hospitalist Note Patient with intermittent bursts of tachycardia, normally on BB, on hold. Given BP normal range, no obvious reason to defer currently will resume with dose now and obtain mag level also.
[2025-04-19] MEDS: Heparin Injection (Vial) 5,000 UNIT/ML VIAL 5000 UNIT SC ×3 (06:10→21:00)
--- NOTE | 2025-04-19 06:18 | NURSING ---
pt BG 52,asymptomatic. Administered OJ x2, recheck 15 mins later BG 76
[2025-04-19] MEDS: Budesonide Respules 0.5 MG/2 ML AMPUL.NEB. INHALATION ×2 (06:52→20:10)
[2025-04-19 08:44] LABS: Anion Gap 11 (5-15); BUN 49 mg/dL (4-19); BUN/Creat Ratio 30.6 RATIO (10-20); Calcium,Total 11.1 mg/dL (7.6-11.0); Carbon Dioxide 29.0 mmol/L (21.0-32.0); Chloride 110 mmol/L (98-108); Estimated Creatinine Clearance 26.60 ml/min (50-250); Glucose 130 mg/dL (70-99); Magnesium 3.0 mg/dL (1.5-2.2); Potassium 4.7 mmol/L (3.3-5.1)
--- NOTE | 2025-04-19 09:54 | CASEMGMT ---
Social Work- SW met with pt to provide update that precert remains pending. Pt expresses no needs or concerns at this time. SW remains available to follow. Plan: HERMELINDA; pend precert TANIA Elizabeth
[2025-04-19] MEDS: Psyllium 1 PACKET PO (10:10)
[2025-04-19] MEDS: Magnesium Chloride 64 MG Delay Rel.Tablet 128 MG PO ×2 (10:10→21:02)
--- NOTE | 2025-04-19 10:25 | CASEMGMT ---
Addendum entered by Mariana Wilson 04/19/25 11:14: *MILE reviewed advanced directives prior to placing in chart. Mariana Wilson DC Planning Asst Original Note: Advanced Directives HC POA and Living Will rec'd from [facility] and placed in pts chart. MILE updated. Mariana Wilson DC Planning Asst
--- NOTE | 2025-04-19 11:19 | CASEMGMT ---
Advanced Directives- SW reviewed directives prior to placing on chart. Pt has living will and HCPOA naming as primary agent. TANIA Elizabeth
[2025-04-19] MEDS: Insulin Glargine-YFGN 100 UNIT/ML Pen 15 UNIT SC ×2 (12:06→21:01)
[2025-04-19] MEDS: Dext 5%-0.45% NS 1,000 ML 100 ML IV (12:16)
--- NOTE | 2025-04-19 13:10 | ST.MBS ---
Modified Barium Swallow Patient Information Study Date: 04/19/25 Study Time: 13:00 Direct Billable Minutes: 120 Total Minutes procedure & reportin Diagnosis: CVA I63.9; CHF I50.23 Referring Physician: Lucio Borden Reason for Referral: Assess swallow function, assess risk for aspiration, and determine recommendations for least restrictive diet textures and compensatory strategies to improve swallowing safety. Medical History: PMH: COPD w/ acute exacerbations, Former smoker, UTI, DM type 2, Hypoxia, Dyspnea, Diabetic polyneuropathy, CAD, Gastroenteritis, GERD, Irregular heart beat, HLD, Thyroid goiter, Anemia, Hyponatremia, PAD, Hyponatremia, Chronic renal failure stage 3, HTN, History of malignant neoplasm of breast ? See EMR for full PMH. Pt presented to [facility] ED 04/13/2025 w/ SOB, congestion, and cough a few days prior to admission. Pt?s son was concerned for altered mentation. She required 3L in the ED. Chest x-ray showed mild cardiomegaly with vascular congestion concerning for recurrent CHF exacerbation with possible pneumonia as well. Borderline low BP. Given her low blood pressures, ED opted to treat for COPD exacerbation and PNA. Pt admitted. Shortly after arrival to PCU, decision was made to obtain CT of the brain. CT brain showed a focal hypodensity in the left frontal lobe that could represent acute/subacute ischemic changes. ST ordered as part of CVA work up. ST completed cognitive evaluation. Pt was placed on minced and moist textures / thin liquids w/ feeding assistance. Pt was recommended for MBSS by BUSPERSON due to hx of PNA, COPD, and new CVA to rule out risk for aspiration. Patient has had multiple hospitalizations here in the last several months. Most recent hospitalization at [facility] from 04/02-04/08 for acute on chronic hypoxic respiratory failure secondary to CHF exacerbation w/ discharge to SNF on 2L via nasal cannula. Current Diet Ordered: Minced and Moist textures / Thin liquids Dentition: Upper Dentures and Lower Dentures Mental Status: Impaired (Confusion, unable to follow commands to take one sip at a time) Respiratory Status: Oxygenating on Room Air Penetration-Aspiration Scale Penetration-Aspiration Scale: OBJECTIVE ASSESSMENT OF SWALLOW FUNCTION (QUANTITATIVE ? PER TRIAL): PENETRATION / ASPIRATION SCALE (MUNOZ): 1 = does not enter airway 2 = enters airway/above vocal folds/ejected 3 = enters airway/above vocal folds/not ejected 4 = enters airway/contacts vocal folds/ejected 5 = enters airway/contacts vocal folds/not ejected 6 = enters airway/below vocal folds/ejected 7 = enters airway/below vocal folds/not ejected despite effort 8 = enters airway/below vocal folds/no effort VIDEOFLOROSCOPIC SCALE SCORE (MUNOZ): Grade I = aspiration of material that has penetrated into the laryngeal vestibule, intact cough reflex Grade II = aspiration < 10 % of the bolus, intact cough reflex Grade III = aspiration of < 10 % of the bolus, reduced cough reflex or aspiration of > 10 % of the bolus, intact cough reflex Grade IV = aspiration of > 10 % of the bolus, reduced cough reflex Penetration-Aspiration Scale Score Thin Liquid via teaspoon: Result: 1= does not enter airway Thin Liquid via teaspoon Trial 2: Result: 5= enters airways/contacts vocal folds/not ejected Thin Liquid via sequential sips: cup: Result: 2= enter airway/above vocal folds/ejected Early Thick Liquid via sequential sips: cup: Result: 2= enter airway/above vocal folds/ejected Pudding via teaspoon: Result: 2= enter airway/above vocal folds/ejected Comment: Esophageal screen - Retention in the middle and lower esophagus. 1/4 Cookie: Result: 1= does not enter airway Comment: Esophageal screen - Retention in the upper esophagus. Pudding remained in the lower esophagus. Thin Liquid via sequential sips:straw: Result: 1= does not enter airway Comment: Esophageal screen - Liquid wash had mostly cleared cookie and pudding retention from the esophagus; however, retention of barium liquid in the middle and lower esophagus on the final swallow of this trial. Post prandial laryngeal penetration w/ reflexive throat clear evidenced by trace residues in the laryngeal vestibule following esophageal screen. Oral Phase Labial Seal: No Labial Escape Tongue Control During Bolus Hold: Posterior escape of greater than half of bolus Bolus Preparation/Mastication: Disorganized chewing/mashing with solid pieces of bolus unchewed Bolus Transport/Lingual Motion: Repetitive/disorganized tongue motion Oral Residue: Residue collection on oral structures Pharyngeal Phase Initiation of Pharyngeal Swallow: Bolus head in pyriforms Soft Palate Elevation: Trace column of contrast/air between soft palate and pharyngeal wall Laryngeal Elevation: Partial superior movement thyroid cart/partial apprx aryt-epig petiole Anterior Hyoid Excursion: Partial anterior movement Epiglottic Movement: Complete inversion Laryngeal Vestibule Closure at Height of Swallow: Incomplete; narrow column of air/contrast in laryngeal vestibule Pharyngeal Stripping Wave: Present - complete Pharyngoesophageal Segment Opening: Parital distension and partial duration; parital obstruction of flow (trace retention in UES) Tongue Base Retraction: Narrow column of contrast between tongue base & post. pharyngeal wall Pharyngeal Residue: Trace residue within or on pharyngeal structures Esophageal Phase Esophageal Clearance: Esophageal retention Diagnosis/Impression Diagnosis: Mild-moderate oropharyngeal dysphagia R13.12; Esophageal dysphagia R13.14 MBS Impressions: The oral phase is primarily marked by... -Decreased bolus control w/ posterior loss of >1/2 of thin liquids to the pyriform sinuses prior to swallow onset. -Disorganized tongue motion for A-P transport. -Very prolonged mastication of cookie w/ small pieces of cookie un-chewed. The pharyngeal phase is primarily marked by... -Delayed swallow onset. -Decreased airway closure due to decreased anterior hyoid excursion and laryngeal elevation w/ deep laryngeal penetration of thin by tsp and post prandial laryngeal penetration of thin liquids via sequential straw. No aspiration. Pt would benefit from slowed rate of intake w/ liquids. The esophageal phase is primarily marked by... -Retention of pudding in the middle and lower esophagus. -Retention of cookie in the upper esophagus. -Liquid washes had mostly cleared cookie and pudding retention from the esophagus; however, retention of barium liquid remained in the middle and lower esophagus after the 4th swallow of liquids (final trial, sequential thin by straw). Recommendations Diet: Minced and Moist Textures and Thin Liquids Compensatory Strategies: Small Bites, Small Sips, Slow Rate, Alternate bites/solids and sips/liquids (1-2 sips after each bite) and Sitting upright (Sit upright 60min after po intake) Supervision: 1:1 Direct Supervision (Assist feeding as needed) Recommend Repeat Modified Barium Swallow: TBD Need for Skilled Speech Therapy Services: Yes Comment: -Train the patient, family, and staff in use of strategies to decrease risk for aspiration and reflux aspiration. Would consider use of bolus control straws. -Ongoing assessment of diet tolerance of recommended textures. Trial soft and bite size textures w/ BUSPERSON at bedside to consider further diet advancement. -If pt is able to reliably follow commands, train the patient in oropharyngeal exercise program to improve bolus control and airway closure (lingual resistance, effortful, CTAR). Goals to be added to acute speech therapy POC... LTG 1.0 The patient will consume least restrictive diet textures without overt s/s of aspiration with 90% acc with moderate verbal cues and assistance to utilize strategies to facilitate safe po intake. STG 1.1 Family and staff will cue and assist pt to ensure use of compensatory strategies to decrease risk for aspiration and reflux aspiration. STG 1.2 The patient will complete an oropharyngeal exercise program X10-15 reps, 3-5X daily with moderate verbal and visual cues to improve strength, ROM, and coordination of swallowing mechanism. Recommended Referrals: GI Consult (OP GI consult recommended) Education Completed: 1. Described result of evaluation. and 2. Pt understands evaluation & agrees with goals and treatment plan. Status Active ST Patient: Active Contact Information [facility] Speech Therapy:: Ebony Vogt M.A. CCC-BUSPERSON Speech-Language Pathologist [facility] [address] [place] [address] [email or web address] [phone]
--- NOTE | 2025-04-19 14:33 | CASEMGMT ---
Social Work- SW heard pt calling out as SW passed the room. SW inquired into how SW could assist pt. Pt reports that she does not know what she needs. Pt denies pain. Pt denies needing to use the bathroom. Pt denies needing a drink. Pt nurse came into room and offered medication for anxiety; pt identified that would be helpful. No other needs at this time. TANIA Elizabeth
--- NOTE | 2025-04-19 18:06 | PN.HOSP_ITS ---
Reason for Visit Chief Complaint: Shortness of breath Subjective Subjective Patient was seen and examined today, she remains on 2 L of oxygen. Made the decision to give the patient fluids due to her elevated sodium and creatinine. I went over this plan with nephrology today. Patient had a modified barium swallow which showed oropharyngeal dysphagia, her diet was changed slightly. Patient had an anxiety episode today and she was given IV Ativan. Objective Data Objective Data Vital Signs: Vital Signs Temp Pulse Resp BP Pulse Ox O2 Del Method O2 Flow Rate 98.4 F 81 16 118/76 100 Nasal Cannula 2 04/19/25 14:47 04/19/25 14:47 04/19/25 14:47 04/19/25 14:47 04/19/25 14:47 04/19/25 14:47 04/19/25 14:47 FiO2 35 04/15/25 03:48 Oxygen Flow Rate (L/min) 2 Oxygen Delivery Method Nasal Cannula Weight: 75.1 kg Body Mass Index (BMI) 29.3 Intake & Output: Intake and Output for Last 24 Hours 04/17/25 04/18/25 04/19/25 23:59 23:59 23:59 Intake Total 712.17 / 712.17 720 / 720 480 / 480 Output Total 1250 / 1450 1000 / 1300 1050 / 1050 Balance -537.83 / -737.83 -280 / -580 -570 / -570 Lab / Micro Data 04/15/25 07:14 04/19/25 07:41 Labs: Laboratory Results - last 24 hr 04/18/25 22:35: POC Glucose 164 H 04/19/25 06:08: POC Glucose 52 L 04/19/25 06:22: POC Glucose 52 L 04/19/25 06:34: POC Glucose 76 04/19/25 07:41: Sodium 149 H, Potassium 4.7, Chloride 110 H, Carbon Dioxide 29.0, Anion Gap 11, BUN 49 H, Creatinine 1.61 H, Estim Creat Clear Calc 26.60 L, Est GFR (MDRD) Non-Af 32 L, BUN/Creatinine Ratio 30.6 H, Glucose 130 H, Calcium 11.1 H, Magnesium 3.0 H 04/19/25 12:03: POC Glucose 143 H 04/19/25 17:12: POC Glucose 238 H Micro: Microbiology 04/13/25 09:30 Blood Culture (Wb) - Anticubital Left Blood Culture - Final No growth in 5 days. 04/13/25 08:30 Blood Culture (Wb) - Anticubital Left Blood Culture - Final No growth in 5 days. 04/13/25 09:51 Mucosa - Nose SARS-CoV-2, Influenza & RSV (PCR) - Final Rhythm Strip Rhythm Strip: Sinus Rhythm Physical Exam Narrative alert, oriented x2 and no apparent distress Constitutional Narrative: Patient appears frail General Appearance: cooperative, well kempt and well developed Orientation / Consciousness: awake, oriented to person and oriented to place HEENT normocephalic, head/scalp atraumatic and moist oral mucous membranes Eyes PERRL, EOMs intact bilaterally and conjunctivae normal Neck supple, no JVD, thyroid normal and no carotid bruits General: trachea midline Resp normal respiratory effort, no retractions, no use of accessory muscles and clear to auscultation bilaterally Auscultation: Negative for rales, rhonchi or wheezes Cardio regular rate, regular rhythm, S1 normal heart sound, S2 normal heart sound, no rub and no gallops GI normal to inspection, nondistended, normoactive bowel sounds, soft to palpation, non-tender and non-distended Extremity no clubbing, cyanosis or edema Skin no rashes or lesions noted General Skin Exam: no breakdown Neuro CN's II-XII intact bilaterally, moves all extremities, no focal motor deficits and no sensory deficits noted Sensorium / Orientation: awake, alert, oriented to person and oriented to place Speech: speech normal Psych Psych Narrative: Patient has flat affect Assessment & Plan Assessment/Plan (1) Stroke: QUALIFIERS: CVA mechanism: unspecified Qualified Code(s): I63.9 - Cerebral infarction, unspecified (2) CHF exacerbation: QUALIFIERS: Heart failure type: systolic Qualified Code(s): I 50.23 - Acute on chronic systolic (congestive) heart failure PLAN: Plan 1. Acute exacerbation of chronic diastolic congestive heart failure-patient will remain on oral Lasix, labs will be monitored, patient will need pre-CERT to return to jail care #2 ischemic cardiomyopathy-complicates care, management, recovery, and prognosis, EF is 20% #3 chronic hypoxic respiratory failure secondary to COPD and chronic diastolic congestive heart failure-pulse ox will be monitored, oxygen will be adjusted accordingly #4 acute kidney injury-BMP will be monitored as necessary, patient remains on Lasix and I have decided to give her fluids today, BMP will be rechecked tomorrow #5 hyperkalemia-corrected at this time #6 possible community-acquired pneumonia-I have decided to discontinue the patient's Levaquin, I feel she has completed a course of treatment #7 Ischemic stroke left frontal lobe-left MCA distribution-continue aspirin and statin #8 oropharyngeal dysphagia-patient's diet was changed by speech therapy. They are participating in her care Total clinical time spent by myself addressing the patient's medical issues, reviewing all of her data, and collaborating with patient's care team: 35-minute Charges/Coding Visit Charges Inpatient E&M: 53088 Subs Hosp L2
--- NOTE | 2025-04-19 18:46 | PN.RENAL_ITS ---
Subjective Subjective no new events Objective Data Objective Data Vital Signs: Vital Signs Temp Pulse Resp BP Pulse Ox O2 Del Method O2 Flow Rate 97.2 F L 94 28 H 114/54 L 96 Nasal Cannula 2 04/19/25 18:37 04/19/25 18:37 04/19/25 18:37 04/19/25 18:37 04/19/25 18:37 04/19/25 18:37 04/19/25 18:37 FiO2 35 04/15/25 03:48 Oxygen Flow Rate (L/min) 2 Oxygen Delivery Method Nasal Cannula Weight: 75.1 kg Body Mass Index (BMI) 29.3 Intake & Output: Intake and Output for Last 24 Hours 04/17/25 04/18/25 04/19/25 23:59 23:59 23:59 Intake Total 712.17 / 712.17 720 / 720 1110 / 1110 Output Total 1250 / 1450 1000 / 1300 1050 / 1050 Balance -537.83 / -737.83 -280 / -580 60 / 60 Lab / Micro Data 04/15/25 07:14 04/19/25 07:41 Labs: Laboratory Results - last 24 hr 04/18/25 22:35: POC Glucose 164 H 04/19/25 06:08: POC Glucose 52 L 04/19/25 06:22: POC Glucose 52 L 04/19/25 06:34: POC Glucose 76 04/19/25 07:41: Sodium 149 H, Potassium 4.7, Chloride 110 H, Carbon Dioxide 29.0, Anion Gap 11, BUN 49 H, Creatinine 1.61 H, Estim Creat Clear Calc 26.60 L, Est GFR (MDRD) Non-Af 32 L, BUN/Creatinine Ratio 30.6 H, Glucose 130 H, Calcium 11.1 H, Magnesium 3.0 H 04/19/25 12:03: POC Glucose 143 H 04/19/25 17:12: POC Glucose 238 H Micro: Microbiology 04/13/25 09:30 Blood Culture (Wb) - Anticubital Left Blood Culture - Final No growth in 5 days. 04/13/25 08:30 Blood Culture (Wb) - Anticubital Left Blood Culture - Final No growth in 5 days. 04/13/25 09:51 Mucosa - Nose SARS-CoV-2, Influenza & RSV (PCR) - Final Rhythm Strip Rhythm Strip: Sinus Rhythm Physical Exam Narrative Alert and oriented, no apparent distress S1, S2, RRR Lungs clear anteriorly and posteriorly. No rhonchi or rales noted. Abdomen soft, nontender, positive bowel sounds no edema bilateral lower legs or feet Assessment & Plan Assessment/Plan (1) Acute renal insufficiency: (2) Acute hyperkalemia: (3) Acute exacerbation of chronic heart failure: PLAN: Plan This is an 80-year-old female with past medical history significant for diabetes mellitus type 2, history of COPD, history of congestive heart failure, coronary artery disease, hypertension, chronic anemia who presented to the emergency room 04/13 with complaints of shortness of breath, patient admitted for acute hypoxia secondary to acute on chronic heart failure reduced EF and concern for pneumonia. Chest x-ray showed vascular congestion. Noncontrast CT abdomen/pelvis showed bilateral pleural effusions as well as new large volume fluid within bilateral flanks concerning for anasarca, distended bladder (now has mccall). BNP 32,000. Echo from December 2024 showed EF 35 to 40%, evidence of diastolic dysfunction, moderate global hypokinesis of LV; Echo from this admission: Estimated ejection fraction 20%, compared to previous study left ventricular systolic function worsened, heavily calcified aortic valve with mild to moderate aortic valve stenosis; cardiology following. No plan for ischemic evaluation at this time. - LIA superimposed on possible CKD stage 3. Baseline SCr was ranging ~1- 1.2mg/dL. Patient was on Lasix drip, transitioned to intermittent Lasix IV. Now on oral Lasix. Hypernatremia. low dose hypotonic fluids today dw hospitalist
[2025-04-19] MEDS: 0.9% Saline Lock 10 ML Syringe IV (21:44)
[2025-04-20] VITALS (16 sets, daily range): BP systolic 100–116; BP diastolic 51–64; PULSE 80–96; RESP 12–41; TEMP 35.9–36.8; O2SAT 92–100; BMI 29.5
--- NOTE | 2025-04-20 00:42 | CPS ---
pt refuses bipap and for last aerosol tx RT had to hold mask for pt. Pt kept pulling mask off , so RT held mask up to pt so she could still get her aerosol treatment.
[2025-04-20] MEDS: Heparin Injection (Vial) 5,000 UNIT/ML VIAL 5000 UNIT SC ×3 (06:46→21:13)
--- NOTE | 2025-04-20 06:55 | PCM.HOSP.N ---
Hospitalist Note AM BS 36, amp being administered given NPO status.
[2025-04-20] MEDS: 0.9% Saline Lock 10 ML Syringe IV (06:57)
--- NOTE | 2025-04-20 07:23 | CT_ITS ---
EXAM: NONCONTRAST CT SCAN OF THE HEAD CLINICAL HISTORY: Encephalopathy COMPARISON: April 13, 2025 TECHNIQUE: Serial axial series through the head were obtained without contrast. 2-D coronal and sagittal reformats were then obtained. FINDINGS: Brain: There is low-density in the left frontal region measuring a proximally 3.3 x 2.7 cm, axial image 21/46, diminished compared to the prior. There are atherosclerotic vascular calcifications involving the bilateral carotid siphons. The sella and pineal gland regions appear unremarkable. Basal ganglia calcifications appear stable. There is no evidence of cerebellar tonsillar herniation. Ventricles: There is no acute hydrocephalus. Basilar cisterns are patent. Paranasal sinuses: Well-aerated Mastoid air cells: Well-aerated. Calvarium: The bony calvarium is intact. Orbits: The bilateral globes are symmetric, without retrobulbar compressive mass lesion or hemorrhage. CT/STROKE Brain/Head without Cont IMPRESSION: There is low-density in the left frontal region measuring a proximally 3.3 x 2. 7 cm, axial image 21/46, diminished compared to the prior, likely resolving edema from subacute infarct. Reading Location: [facility]
--- NOTE | 2025-04-20 07:34 | CT_ITS ---
PROCEDURE: CTA HEAD AND NECK W/ CONTRAST 04/20/2025 REASON FOR EXAM: FACIAL DROOP TECHNIQUE: CTA HEAD AND NECK W/ CONTRAST Multiplanar Sagittal and Coronal images were obtained. 3D post processing was performed CONTRAST: Isovue 370 VOLUME: 100 mL One or more dose reduction techniques were used (e.g., Automated exposure control, adjustment of the mA and/or kV according to patient size, use of iterative reconstruction technique). RADIATION DOSE SUMMARY: CTDlvol: 28.75 mGy DLP: 906.68 mGycm COMPARISON: None FINDINGS: Coronary artery calcification. Bilateral pleural effusions. Fluid in the left major fissure. Findings suggestive of possible CHF. Aortic Arch: Normal size and branching pattern. Mild atherosclerotic plaque. Brachiocephalic and Subclavians: Mild atherosclerotic plaque without significant stenosis. RIGHT Carotid: Right CCA: Unremarkable. Right ICA: Large amount of calcific plaques. Maximum stenosis (NASCET): > 80 % Right ECA: Unremarkable. LEFT Carotid: Left CCA: Mild calcified and soft plaque. Left ICA: Large amount of calcific plaques. Maximum stenosis (NASCET): > 80 % Left ECA: Unremarkable. Vertebrals: Codominant. Arise from the subclavians. Both vertebrals form the basilar. RIGHT Vertebral: Unremarkable. LEFT Vertebral: Unremarkable. Anatomy: [place] anatomy is normal. Aneurysm or avm: No intracranial aneurysms or large vascular malformations are identified. Anterior cerebral arteries: Unremarkable: Middle cerebral arteries: Unremarkable. Basilar artery: Unremarkable. Posterior cerebral arteries: Unremarkable. Other major branches of the posterior circulation: Unremarkable. Major venous structures: Unremarkable. CT/CTA Head AND Neck W/ Contrast IMPRESSION: Calcific plaques at the origin of both internal carotid arteries and causing gr eater than 80% stenosis. Red Alert: Greater than 80% stenosis of both carotids The critical information above was relayed directly by me by telephone to Lucio Blanco on 04/20/2025 at 7:58 am with readback verification. Reading Location: [id number]
--- NOTE | 2025-04-20 07:50 | NURSING ---
Stroke alert assessment completed, patient returned to pcu room 101
--- NOTE | 2025-04-20 07:55 | RAD_ITS ---
PROCEDURE: CHEST 1 VIEW (PORTABLE) 04/20/2025 REASON FOR EXAM: CHF TECHNIQUE: Frontal view of the chest. COMPARISON: April 13, 2025 FINDINGS: Hardware: EKG leads. A PICC line is seen on the right side terminating at the proximal axillary region. Heart: Enlarged. Aorta is atherosclerotic. Lungs: Central congestion, mild edema is seen. Scant left pleural fluid with subsegmental atelectasis of the left base. Bones: Degenerative changes are identified within the thoracic spine. RAD/Chest 1 View (Portable) IMPRESSION: Cardiac enlargement, interstitial edema. Reading Location: [id number]
--- NOTE | 2025-04-20 08:29 | NURSING ---
Pt was found to have a blood sugar of 36 at 0640 04/20/25. at this time the patient was lethargic with generalized weakness and left sided facial droop and unable to take sips, so D10 bolus was given per protocol. Blood sugar recheck was found to be increased at 127.
--- NOTE | 2025-04-20 08:49 | CASEMGMT ---
Discharge Planning Updates sent to [facility] with note requesting status of precert. Awaiting response. Mariana Wilson DC Planning Asst.
[2025-04-20 09:05] LABS: Hematocrit 26.8 % (37-47); Hemoglobin 7.9 g/dL (12.0-15.0); Immature Granulocytes Count 0.030 X10^3/uL (0.0-0.0); Mean Corp Hgb Conc 29.5 g/dL (32-36); Mean Corpuscular Volume 87.0 fL (81-99); Mean Platelet Vol. 10.9 fl (6.2-12.0); NRBC Flagged by Analyzer 0 % (0-5); Platelet Count 292 K/mm3 (150-450); RBC Distribution Width CV 17.6 % (11.6-14.6); RBC Distribution Width SD 56.0 fl (35.1-43.9); Red Blood Count 3.08 M/mm3 (4.2-5.4); White Blood Count 8.0 K/mm3 (4.4-11.0)
[2025-04-20 09:27] LABS: AST(SGOT) 39 U/L (<=31); Alanine Aminotransfer ALT/SGPT 71 U/L (<=34); Albumin, Serum 3.1 g/dL (3.4-4.8); Alkaline Phosphatase 154 U/L (35-104); Anion Gap 11 (5-15); BUN 50 mg/dL (4-19); BUN/Creat Ratio 30.2 RATIO (10-20); Calcium,Total 10.7 mg/dL (7.6-11.0); Carbon Dioxide 26.2 mmol/L (21.0-32.0); Chloride 108 mmol/L (98-108); Estimated Creatinine Clearance 25.71 ml/min (50-250); Globulin 3.1 g/dL (2.2-4.2); Glucose 78 mg/dL (70-99); Potassium 3.9 mmol/L (3.3-5.1)
[2025-04-20] MEDS: Psyllium 1 PACKET PO (10:07)
[2025-04-20] MEDS: Magnesium Chloride 64 MG Delay Rel.Tablet 128 MG PO ×2 (10:07→21:11)
[2025-04-20] MEDS: Insulin Glargine-YFGN 100 UNIT/ML Pen 15 UNIT SC (10:14)
--- NOTE | 2025-04-20 14:27 | PN.RENAL_ITS ---
Objective Data Objective Data Vital Signs: Vital Signs Temp Pulse Resp BP Pulse Ox O2 Del Method O2 Flow Rate 97.4 F L 94 26 H 103/58 L 100 Nasal Cannula 4 04/20/25 10:00 04/20/25 10:07 04/20/25 10:00 04/20/25 10:07 04/20/25 10:00 04/20/25 10:00 04/20/25 10:00 FiO2 35 04/15/25 03:48 Oxygen Flow Rate (L/min) 4 Oxygen Delivery Method Nasal Cannula Weight: 75.5 kg Body Mass Index (BMI) 29.5 Intake & Output: Intake and Output for Last 24 Hours 04/18/25 04/19/25 04/20/25 23:59 23:59 23:59 Intake Total 720 / 720 1410 / 1410 250 / 250 Output Total 1000 / 1300 1300 / 1550 600 / 600 Balance -280 / -580 110 / -140 -350 / -350 Lab / Micro Data 04/20/25 08:35 04/20/25 08:35 Labs: Laboratory Results - last 24 hr 04/19/25 12:03: POC Glucose 143 H 04/19/25 17:12: POC Glucose 238 H 04/19/25 20:57: POC Glucose 239 H 04/20/25 06:48: POC Glucose 36 L* 04/20/25 08:35: WBC 8.0, RBC 3.08 L, Hgb 7.9 L, Hct 26.8 L, MCV 87.0, MCH 25.6 L , MCHC 29.5 L, RDW Std Deviation 56.0 H, RDW Coeff of Vijay 17.6 H, Plt Count 292, MPV 10.9, Immature Gran % (Auto) 0.400, Neut % (Auto) 75.7 H, Lymph % (Auto) 13.6 L, [place] % (Auto) 8.4, Eos % (Auto) 1.8, Baso % (Auto) 0.1, Absolute Neuts (auto) 6.0, Absolute Lymphs (auto) 1.08, Nucleated RBC % 0, Sodium 146 H, Potassium 3.9, Chloride 108, Carbon Dioxide 26.2, Anion Gap 11, BUN 50 H, C reatinine 1.67 H, Estim Creat Clear Calc 25.71 L, Est GFR (MDRD) Non-Af 31 L, B UN/Creatinine Ratio 30.2 H, Glucose 78, Calcium 10.7, Total Bilirubin 0.31, AST 39 H, ALT 71 H, Alkaline Phosphatase 154 H, Total Protein 6.2, Albumin 3.1 L, Globulin 3.1, Albumin/Globulin Ratio 1.0 04/20/25 11:26: POC Glucose 126 H Micro: Microbiology 04/13/25 09:30 Blood Culture (Wb) - Anticubital Left Blood Culture - Final No growth in 5 days. 04/13/25 08:30 Blood Culture (Wb) - Anticubital Left Blood Culture - Final No growth in 5 days. 04/13/25 09:51 Mucosa - Nose SARS-CoV-2, Influenza & RSV (PCR) - Final Radiography Diagnostic Testing: Radiology Impression Brain CT 04/20/25 07:23 IMPRESSION: There is low-density in the left frontal region measuring a proximally 3.3 x 2.7 cm, axial image , diminished compared to the prior, likely resolving edema from subacute infarct. Reading Location: [facility] Head/Neck CTA 04/20/25 07:34 IMPRESSION: Calcific plaques at the origin of both internal carotid arteries and causing greater than 80% stenosis. Red Alert: Greater than 80% stenosis of both carotids The critical information above was relayed directly by me by telephone to Lucio Borden on 04/20/2025 at 7:58 am with readback verification. Reading Location: [id number] Chest X-Ray 04/20/25 07:55 IMPRESSION: Cardiac enlargement, interstitial edema. Reading Location: [id number] Rhythm Strip Rhythm Strip: Sinus Rhythm Physical Exam Narrative Alert to name, no apparent distress S1, S2, RRR Lungs clear anteriorly and posteriorly. No rhonchi or rales noted. Abdomen soft, nontender, positive bowel sounds no edema bilateral lower legs or feet Assessment & Plan Assessment/Plan (1) Acute renal insufficiency: (2) Acute hyperkalemia: (3) Acute exacerbation of chronic heart failure: PLAN: Plan This is an 80-year-old female with past medical history significant for diabetes mellitus type 2, history of COPD, history of congestive heart failure, coronary artery disease, hypertension, chronic anemia who presented to the emergency room 04/13 with complaints of shortness of breath, patient admitted for acute hypoxia secondary to acute on chronic heart failure reduced EF and concern for pneumonia. Chest x-ray showed vascular congestion. Noncontrast CT abdomen/pelvis showed bilateral pleural effusions as well as new large volume fluid within bilateral flanks concerning for anasarca, distended bladder (now has mccall). BNP 32,000. Echo from December 2024 showed EF 35 to 40%, evidence of diastolic dysfunction, moderate global hypokinesis of LV; Echo from this admission: Estimated ejection fraction 20%, compared to previous study left ventricular systolic function worsened, heavily calcified aortic valve with mild to moderate aortic valve stenosis; cardiology following. No plan for ischemic evaluation at this time. - LIA superimposed on possible CKD stage 3. Baseline SCr was ranging ~1- 1.2mg/dL. Patient was on Lasix drip, transitioned to intermittent Lasix IV. Now on oral Lasix. SCr peaked ~2.1--> now Cr 1.6. Hypernatremia; had gentle IV fluids, sodium better today at 146. Peaked 149. Discharge planning in progress. Will arrange for hospital follow-up. Assessment and plan reviewed with Dr. London.
--- NOTE | 2025-04-20 18:29 | PN.HOSP_ITS ---
Reason for Visit Chief Complaint: Shortness of breath Subjective Subjective Patient was seen and examined today, earlier today a stroke team was called on the patient when it was noted that she was less responsive and had left facial droop. Patient's blood sugar was noted to be in the 30s, she was given D10 and blood sugar was repeated with normalization of the patient's blood sugar. Imaging studies were done acutely and showed no evidence of intracranial bleed or additional stroke, the area that was felt to be a stroke on the last CT had actually gotten smaller. I talked with the teleneurologist, she thought that administration of tenecteplase would actually cause more harm than benefit, by the time the patient was evaluated in CT, she was talking and had no facial droop. Chest x-ray obtained by me today showed vascular congestion, chemistry showed improvement in the patient's sodium and chloride, patient is currently on 4 L of oxygen and there is intermittently crying out. Objective Data Objective Data Vital Signs: Vital Signs Temp Pulse Resp BP Pulse Ox O2 Del Method O2 Flow Rate 98.3 F 91 30 H 102/54 L 100 Nasal Cannula 4 04/20/25 14:50 04/20/25 14:50 04/20/25 14:50 04/20/25 14:50 04/20/25 14:50 04/20/25 15:00 04/20/25 15:00 FiO2 35 04/15/25 03:48 Oxygen Flow Rate (L/min) 4 Oxygen Delivery Method Nasal Cannula Weight: 75.5 kg Body Mass Index (BMI) 29.5 Intake & Output: Intake and Output for Last 24 Hours 04/18/25 04/19/25 04/20/25 23:59 23:59 23:59 Intake Total 720 / 720 1410 / 1410 730 / 730 Output Total 1000 / 1300 1300 / 1550 1000 / 1000 Balance -280 / -580 110 / -140 -270 / -270 Lab / Micro Data 04/20/25 08:35 04/20/25 08:35 Labs: Laboratory Results - last 24 hr 04/19/25 20:57: POC Glucose 239 H 04/20/25 06:48: POC Glucose 36 L* 04/20/25 08:35: WBC 8.0, RBC 3.08 L, Hgb 7.9 L, Hct 26.8 L, MCV 87.0, MCH 25.6 L , MCHC 29.5 L, RDW Std Deviation 56.0 H, RDW Coeff of Vijay 17.6 H, Plt Count 292, MPV 10.9, Immature Gran % (Auto) 0.400, Neut % (Auto) 75.7 H, Lymph % (Auto) 13.6 L, [place] % (Auto) 8.4, Eos % (Auto) 1.8, Baso % (Auto) 0.1, Absolute Neuts (auto) 6.0, Absolute Lymphs (auto) 1.08, Nucleated RBC % 0, Sodium 146 H, Potassium 3.9, Chloride 108, Carbon Dioxide 26.2, Anion Gap 11, BUN 50 H, C reatinine 1.67 H, Estim Creat Clear Calc 25.71 L, Est GFR (MDRD) Non-Af 31 L, B UN/Creatinine Ratio 30.2 H, Glucose 78, Calcium 10.7, Total Bilirubin 0.31, AST 39 H, ALT 71 H, Alkaline Phosphatase 154 H, Total Protein 6.2, Albumin 3.1 L, Globulin 3.1, Albumin/Globulin Ratio 1.0 04/20/25 11:26: POC Glucose 126 H 04/20/25 17:10: POC Glucose 71 L Micro: Microbiology 04/13/25 09:30 Blood Culture (Wb) - Anticubital Left Blood Culture - Final No growth in 5 days. 04/13/25 08:30 Blood Culture (Wb) - Anticubital Left Blood Culture - Final No growth in 5 days. 04/13/25 09:51 Mucosa - Nose SARS-CoV-2, Influenza & RSV (PCR) - Final Radiography Diagnostic Testing: Radiology Impression Brain CT 04/20/25 07:23 IMPRESSION: There is low-density in the left frontal region measuring a proximally 3.3 x 2.7 cm, axial image , diminished compared to the prior, likely resolving edema from subacute infarct. [facility] 04/20/25 07:34 IMPRESSION: Calcific plaques at the origin of both internal carotid arteries and causing greater than 80% stenosis. Red Alert: Greater than 80% stenosis of both carotids The critical information above was relayed directly by me by telephone to Lucio Borden on 04/20/2025 at 7:58 am with readback verification. Reading Location: [id number] Chest X-Ray 04/20/25 07:55 IMPRESSION: Cardiac enlargement, interstitial edema. Reading Location: [id number] Rhythm Strip Rhythm Strip: Sinus Rhythm Physical Exam Narrative alert, oriented x2 and no apparent distress Constitutional Narrative: Patient appears frail General Appearance: cooperative, well kempt and well developed Orientation / Consciousness: awake, oriented to person and oriented to place HEENT normocephalic, head/scalp atraumatic and moist oral mucous membranes Eyes PERRL, EOMs intact bilaterally and conjunctivae normal Neck supple, no JVD, thyroid normal and no carotid bruits General: trachea midline Resp normal respiratory effort, no retractions, no use of accessory muscles and clear to auscultation bilaterally Auscultation: Negative for rales, rhonchi or wheezes Cardio regular rate, regular rhythm, S1 normal heart sound, S2 normal heart sound, no rub and no gallops GI normal to inspection, nondistended, normoactive bowel sounds, soft to palpation, non-tender and non-distended Extremity no clubbing, cyanosis or edema Skin no rashes or lesions noted General Skin Exam: no breakdown Neuro CN's II-XII intact bilaterally, moves all extremities, no focal motor deficits and no sensory deficits noted Sensorium / Orientation: awake, alert, oriented to person and oriented to place Speech: speech slow and indistinct at time Psych Psych Narrative: Patient has flat affect Assessment & Plan Assessment/Plan (1) CHF exacerbation: QUALIFIERS: Heart failure type: systolic Qualified Code(s): I 50.23 - Acute on chronic systolic (congestive) heart failure (2) Stroke: QUALIFIERS: CVA mechanism: unspecified Qualified Code(s): I63.9 - Cerebral infarction, unspecified PLAN: Plan 1. Acute exacerbation of chronic diastolic congestive heart failure-patient will remain on oral Lasix, labs will be monitored, patient will need pre-CERT to return to long term care #2 ischemic cardiomyopathy-complicates care, management, recovery, and prognosis, EF is 20% #3 chronic hypoxic respiratory failure secondary to COPD and chronic diastolic congestive heart failure-pulse ox will be monitored, oxygen will be adjusted accordingly #4 acute kidney injury-BMP will be monitored as necessary, patient remains on Lasix and I have decided to give her fluids today, BMP will be rechecked tomorrow #5 hyperkalemia-corrected at this time #6 possible community-acquired pneumonia- I feel she has completed a course of treatment #7 Ischemic stroke left frontal lobe-left MCA distribution-continue aspirin and statin #8 oropharyngeal dysphagia-patient's diet was changed by speech therapy. They are participating in her care #9 type 2 diabetes-patient had incidence of low blood sugar this morning, will reevaluate her insulin dosage, fingerstick blood sugars continue to be monitored and she will receive sliding scale insulin Total clinical time spent by myself addressing the patient's medical issues, reviewing all of her data, and collaborating with patient's care team: 35-minute Charges/Coding Visit Charges Inpatient E&M: 16233 Subs Hosp L2
[2025-04-20] MEDS: Budesonide Respules 0.5 MG/2 ML AMPUL.NEB. INHALATION (18:53)
[2025-04-20] MEDS: Iron Sucrose Complex (Venofer) 200 MG in 0.9% NaCl 100 ML 220 MG IV (20:05)
[2025-04-20] MEDS: MELATONIN 3 MG TABLET PO (22:57)
--- NOTE | 2025-04-20 23:39 | CPS ---
RT ATTEMPTED PAP THERAPY WITH PATIENT FOR THE NIGHT, HOWEVER SHE ONLY WORE FOR A COUPLE MINUTES BEFORE PATIENT WAS TAKING THE MASK OFF. PATIENT A BIT CONFUSED AT THIS TIME.
[2025-04-21 03:12] VITALS: BP 111/50; PULSE 90; RESP 24; TEMP 36.3; O2SAT 100
[2025-04-21 05:25] VITALS: BMI 29.5
[2025-04-21] MEDS: Heparin Injection (Vial) 5,000 UNIT/ML VIAL 5000 UNIT SC (06:21)
[2025-04-21 07:45] VITALS: O2SAT 97
--- NOTE | 2025-04-21 08:54 | CASEMGMT ---
Social Work Precert attained for pt to return to [place] today. MILE texted physician to let him know, it is anticipated pt will be d/c back to [place] today. Pt's had left a message for SW yesterday. MILE called him back, spoke w/both and son. MILE let them know we did get the precert for pt to return to [place] skilled today. 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 They have been working w/Jaylyn on Medicaid. MILE encouraged them to continue to work w/Jaylyn on this. MILE let and son know they will get a call once pt is set up to discharge. MILE called Jaylyn to check in w/her on the Medicaid. She states pt did not want to sign the papers, and pt's has not been able to come in to sign, so she emailed the documents to the son. She states will speak w/the pt again to see if she will sign the documents. MILE will continue to follow along w/d/c event planning intern, for d/c to [place] today. JERSEY Wells
--- NOTE | 2025-04-21 09:02 | CASEMGMT ---
Discharge Planning [facility] has obtained auth to admit. SHAWANDA CM aware. Mariana Wilson DC Planning Asst.
[2025-04-21] MEDS: 0.9% Saline Lock 10 ML Syringe IV (09:44)
[2025-04-21] MEDS: Iron Sucrose Complex 200 MG in 0.9% Normal Saline (100mL Bag) 100 ML 220 MG IV (09:44)
[2025-04-21 09:46] VITALS: BP 119/53; PULSE 103; RESP 28; TEMP 36.8; O2SAT 98
[2025-04-21 09:50] VITALS: BP 119/53; PULSE 103
[2025-04-21] MEDS: Magnesium Chloride 64 MG Delay Rel.Tablet 128 MG PO (09:50)
[2025-04-21] MEDS: Psyllium 1 PACKET PO (09:50)
[2025-04-21 10:03] LABS: Anion Gap 11 (5-15); BUN 45 mg/dL (4-19); BUN/Creat Ratio 28.4 RATIO (10-20); Calcium,Total 10.8 mg/dL (7.6-11.0); Carbon Dioxide 26.4 mmol/L (21.0-32.0); Chloride 111 mmol/L (98-108); Estimated Creatinine Clearance 27.36 ml/min (50-250); Glucose 76 mg/dL (70-99); Potassium 4.4 mmol/L (3.3-5.1)
--- NOTE | 2025-04-21 10:14 | PN.RENAL_ITS ---
Subjective Subjective Sitting in chair. More alert and oriented today. No complaints. Getting IV iron infusion. Objective Data Objective Data Vital Signs: Vital Signs Temp Pulse Resp BP Pulse Ox O2 Del Method O2 Flow Rate 98.2 F 103 H 28 H 119/53 L 98 Nasal Cannula 3 04/21/25 09:46 04/21/25 09:50 04/21/25 09:46 04/21/25 09:50 04/21/25 09:46 04/21/25 09:46 04/21/25 09:46 FiO2 3 04/21/25 03:12 Oxygen Flow Rate (L/min) 3 Oxygen Delivery Method Nasal Cannula Weight: 75.6 kg Body Mass Index (BMI) 29.5 Intake & Output: Intake and Output for Last 24 Hours 04/19/25 04/20/25 04/21/25 23:59 23:59 23:59 Intake Total 1410 / 1410 840 / 840 Output Total 1300 / 1550 1450 / 1450 150 / 150 Balance 110 / -140 -610 / -610 -150 / -150 Lab / Micro Data 04/20/25 08:35 04/21/25 08:15 Labs: Laboratory Results - last 24 hr 04/20/25 11:26: POC Glucose 126 H 04/20/25 17:10: POC Glucose 71 L 04/20/25 20:44: POC Glucose 93 04/20/25 21:16: POC Glucose 102 04/21/25 06:20: POC Glucose 70 L 04/21/25 08:15: Sodium 148 H, Potassium 4.4, Chloride 111 H, Carbon Dioxide 26.4, Anion Gap 11, BUN 45 H, Creatinine 1.57 H, Estim Creat Clear Calc 27.36 L, Est GFR (MDRD) Non-Af 33 L, BUN/Creatinine Ratio 28.4 H, Glucose 76, Calcium 10.8 Micro: Microbiology 04/13/25 09:30 Blood Culture (Wb) - Anticubital Left Blood Culture - Final No growth in 5 days. 04/13/25 08:30 Blood Culture (Wb) - Anticubital Left Blood Culture - Final No growth in 5 days. 04/13/25 09:51 Mucosa - Nose SARS-CoV-2, Influenza & RSV (PCR) - Final Rhythm Strip Rhythm Strip: Sinus Rhythm Physical Exam Narrative Alert and oriented, no apparent distress S1, S2, RRR Lungs clear anteriorly and posteriorly. No rhonchi or rales noted. Abdomen soft, nontender, positive bowel sounds no edema bilateral lower legs or feet Assessment & Plan Assessment/Plan (1) Acute renal insufficiency: (2) Acute hyperkalemia: (3) Acute exacerbation of chronic heart failure: PLAN: Plan This is an 80-year-old female with past medical history significant for diabetes mellitus type 2, history of COPD, history of congestive heart failure, coronary artery disease, hypertension, chronic anemia who presented to the emergency room 04/13 with complaints of shortness of breath, patient admitted for acute hypoxia secondary to acute on chronic heart failure reduced EF and concern for pneumonia. Chest x-ray showed vascular congestion. Noncontrast CT abdomen/pelvis showed bilateral pleural effusions as well as new large volume fluid within bilateral flanks concerning for anasarca, distended bladder (now has mccall). BNP 32,000. Echo from December 2024 showed EF 35 to 40%, evidence of diastolic dysfunction, moderate global hypokinesis of LV; Echo from this admission: Estimated ejection fraction 20%, compared to previous study left ventricular systolic function worsened, heavily calcified aortic valve with mild to moderate aortic valve stenosis; cardiology following. No plan for ischemic evaluation at this time. - LIA superimposed on possible CKD stage 3. Baseline SCr was ranging ~1- 1.2mg/dL. Patient was on Lasix drip, transitioned to intermittent Lasix IV. Now on oral Lasix. SCr peaked ~2.1--> now Cr 1.57. - Hypernatremia; had gentle IV fluids. Peaked 149. Today sodium 148. Encouraged increase free water intake. - Discharge planning in progress to [facility]CF. Will arrange for hospital follow-up. Assessment and plan reviewed with Dr. London.
--- NOTE | 2025-04-21 10:33 | CASEMGMT ---
Social Work Pt's called SW back again, asked SW questions about Medicaid. SW directed him to call Jaylyn with [employer] directly. Pt's then states that someone just called and said his is returning to [facility] today. SW reminded him that this SW is the one who called and spoke to him. Pt's asked again about the insurance, SW reminded him that pt is going back to the [facility] under his [employer]. SW again encouraged him to follow up w/Jaylyn about the Medicaid, as she knows how to work through the system better than this SW. Pt's states understanding. SW called Jaylyn, message left letting her know may call regarding the Medicaid application. JERSEY Wells
--- NOTE | 2025-04-21 10:55 | TREXTCAR_ITS ---
Diet Diet Order/Speech Therapy: INPATIENT Hospital Diet / Speech Therapy Order(s) 04/14/25 14:29 Diet: Carbohydrate Controlled Food consistency:: Mechanical (Minced/Moist) Liquid Consistency:: Regular/Thin Dietary Modifications:: Potassium Restricted Type of Dietary Supplement:: Glucerna Shake Diet Comments: 240ml glucerna shake with each meal Speech Therapy Comments: Direct sup, Assist feeding, SIPS ONE AT A TIME Routine Orders/Code Status Routine Lab Work: CBC (On 04/24/2025) and BMP (On 04/24/2025) Code Status: Full Code DC O2, CPAP, BIPAP needs Home O2 Discharge instructions: Yes Type of respiratory needs?: Oxygen Oxygen frequency: Continuous Continuous oxygen liters per minute: 3 L Wound(s) coccyx: Wound Type: Pressure Injury Therapies Weight Bearing: Full weight bearing Physical Therapy: Eval and Treat Occupational Therapy: Eval and Treat Speech Therapy: Eval and Treat Problem/Diagnosis (1) Acute renal insufficiency: Status: Inactive Code(s): N28.9 - Disorder of kidney and ureter, unspecified (2) Acute hyperkalemia: Status: Inactive Code(s): E87.5 - Hyperkalemia (3) Acute exacerbation of chronic heart failure: Status: Resolved Code(s): I50.9 - Heart failure, unspecified Plan 1. Acute exacerbation of chronic diastolic congestive heart failure-patient will remain on oral Lasix, labs will be monitored, patient will need pre-CERT to return to long term care #2 ischemic cardiomyopathy-complicates care, management, recovery, and prognosis, EF is 20% #3 chronic hypoxic respiratory failure secondary to COPD and chronic diastolic congestive heart failure-pulse ox will be monitored, oxygen will be adjusted accordingly #4 acute kidney injury-BMP will be monitored as necessary, patient remains on Lasix and I have decided to give her fluids today, BMP will be rechecked tomorrow #5 hyperkalemia-corrected at this time #6 possible community-acquired pneumonia- I feel she has completed a course of treatment #7 Ischemic stroke left frontal lobe-left MCA distribution-continue aspirin and statin #8 oropharyngeal dysphagia-patient's diet was changed by speech therapy. They are participating in her care #9 type 2 diabetes-patient had incidence of low blood sugar this morning, will reevaluate her insulin dosage, fingerstick blood sugars continue to be monitored and she will receive sliding scale insulin Total clinical time spent by myself addressing the patient's medical issues, reviewing all of her data, and collaborating with patient's care team: 35-minute Allergies/Procedures Done in Hospital Allergies adhesive tape (tape) Allergy (Verified 04/13/25 08:41) NEEDS FOLLOW-UP CLOTH TAPE cephalexin monohydrate (From Keflex) Allergy (Verified 04/13/25 08:41) Rash clopidogrel bisulfate (From Plavix) Allergy (Verified 04/13/25 08:41) Other oxycodone Adverse Reaction (Severe, Verified 04/13/25 08:41) made me really crazy called mortgage manager on people amoxicillin Adverse Reaction (Verified 04/13/25 08:41) YEAST INFECTION Procedures: 2-D Echocardiogram Type of Care/Length of Stay Estimated LOS: Convalescent Care Less Than 30 days Type of Care Needed: Skilled Rehab Potential: Good Prognosis: Good Additional Orders/Day of Discharge H&P will serve as current which was dated: 04/13/25 Day of Discharge: 04/21/25 Dietary and Speech Recommendations Dietitian Recommendations/Changes: Continue consistent carbohydrate diet with potassium restriction per [employer] recommendations. Will adjust to 240ml glucerna shake with meals. Will monitor weight trends. Speech Linguistic Eval Summary: The patient is well known to the evaluating speech therapist from prior admissions for dysphagia. Following a CT diagnosis of a left MCA stroke, a cognitive-linguistic evaluation was recommended. BCAT Form A was attempted but due to significant deficits, an informal assessment was performed. The patient was oriented only to name and city, unable to recall her year or identify the current setting. She could not name the month or year even with cues and a choice of two options. Auditory comprehension of one-step commands was 30% accurate. She showed confusion with tasks (e.g., wiggled her nose when asked to wiggle fingers). Yes/no accuracy was 70% for self-related questions, 50% for orientation/environment, and 30% for factual questions. Confrontation naming of tactile items in the room was 100% with five cues, but picture naming was 0% with perseveration (e.g., naming all items as ?fish?). Generative and divergent naming was absent. Automatic speech was within normal limits with initial cues. BIMS score was 2/15, with poor recall and orientation. She presents with severe cognitive-linguistic deficits likely due to the left MCA stroke and/or underlying dementia. Continued speech therapy is recommended at the current or next level of care to support return to prior level of function. Discharge Plan Admission Admit Date/Time: 04/13/25 11:00 Primary Reason for Your Visit: Acute left cerebral stroke, acute CHF Attending Provider: Lucio Borden Primary Care Provider: Axel Nicholas Consulting Providers: Elizabeth London; Nestor Bartlett Instructions Additional Instructions / Restrictions: You may want to consider reinstituting a low-dose ALBA or ARB if the patient's creatinine stabilizes, or alternately, resuming Entresto-either way, patient's kidney functions will have to be monitored closely Discharge Orders/Prescriptions Prescriptions: New atorvastatin 40 mg Tablet 80 mg PO QHS Qty: 0 0RF acetaminophen 325 mg Tablet 650 mg PO Q6H PRN PRN (Reason: Pain 1-10 Or Fever>100.7) Qty: 0 0RF ipratropium-albuterol 0.5 mg-3 mg(2.5 mg base)/3 mL Solution For Nebulization 3 ml inhalation Q6HWA.RT Qty: 0 0RF hydroxyzine HCl 10 mg Tablet 10 mg PO QHS Qty: 0 0RF insulin lispro [Humalog KwikPen Insulin] 100 unit/mL Insulin Pen See Protocol subcut ACHS Qty: 0 0RF Protocol: 4. Sliding Scale Insulin High-Med Dosing Condition: 150-199 mg/dl = 2 units Condition: 200-259 mg/dl = 4 units Condition: 260-324 mg/dl = 6 units Condition: 325-374 mg/dl = 8 units Condition: 375-409 mg/dl = 10 units Condition: 410-449 mg/dl = 11 units Condition: Greater than 449 call physician Protocol Text: Suggested for: - Patients on Total Daily Insulin Dose of 56-80 units - Patient who are known to be insulin resistant or septic HIGH MEDIUM DOSING ALGORITHM insulin glargine-yfgn 100 unit/mL (3 mL) Insulin Pen 10 unit subcut BID Qty: 0 0RF Continued Jardiance 10 mg tablet 10 mg PO DAILY multivitamin Tablet 1 tab PO DAILY aspirin 81 MG tablet,chewable 81 mg PO DAILY magnesium oxide 400 MG tablet 400 mg PO BID pantoprazole 40 MG tablet 40 mg PO DAILY roflumilast 500 mcg tablet 500 mcg PO DAILY ascorbic acid (vitamin C) [Vitamin C] 250 mg tablet 250 mg PO DAILY menthol-zinc oxide [CalaSoothe] 0.44-20.6 % ointment 1 applic topical 4X/DAY PRN (Reason: skin irritation) psyllium husk [Daily Fiber] 0.4 gram capsule 0.4 g PO DAILY mecobalamin (vitamin B12) [B12 Active] 1,000 mcg tablet,chewable 1,000 mcg PO DAILY Rocklatan 0.02-0.005 % Drops 1 drp EACH EYE DAILY albuterol sulfate 90 mcg/actuation HFA aerosol inhaler 2 puff inhalation Q6H PRN (Reason: shortness of breath or wheezing) cetirizine 10 mg tablet 10 mg PO DAILY guaifenesin [Mucinex] 600 mg Tablet Extended Release 12hr 600 mg PO BID Qty: 0 0RF gabapentin 100 mg capsule 100 mg PO QHS 3 Days Qty: 3 0RF (DME) lancets [TRUEplus Lancets] 28 gauge misc MISCELLANEOUS Breztri Aerosphere 160-9-4.8 mcg/actuation HFA aerosol inhaler 2 inh inhalation BID furosemide 20 mg Tablet 60 mg PO DAILY Qty: 90 2RF metoprolol tartrate 25 mg Tablet 25 mg PO BID Qty: 60 2RF Discontinued Januvia 50 mg tablet 50 mg PO DAILY pravastatin 20 mg tablet 20 mg PO DAILY insulin lispro [Humalog KwikPen Insulin] 100 unit/mL Insulin Pen 10 unit subcut TIDAC Rx Instructions: Hold if glucose less than 120 mg/dl Mounjaro 5 mg/0.5 mL pen injector 5 mg subcut QWEEK Patient Comments: PT STATes she takes on mondays azelastine 137 mcg (0.1 %) spray,non-aerosol 1 - 2 spray INTRANASAL BID acetaminophen 500 mg Tablet 1,000 mg PO Q6H PRN (Reason: Pain Score 1-3) potassium chloride [K-Tab] 20 mEq tablet extended release 20 meq PO BID ipratropium-albuterol 0.5 mg-3 mg(2.5 mg base)/3 mL Solution For Nebulization 3 ml inhalation Q6H.RT Qty: 120 0RF hydroxyzine HCl 25 mg tablet 12.5 mg PO QHS diazepam 2 mg tablet 2 mg PO BID ipratropium bromide 21 mcg (0.03 %) spray,non-aerosol 1 - 2 spray INTRANASAL Q6H PRN (Reason: allergy symptoms) insulin glargine [Lantus Solostar U-100 Insulin] 100 unit/mL (3 mL) insulin pen 20 unit subcut BID sacubitril-valsartan [Entresto] 24-26 mg Tablet 1 tab PO BID Qty: 60 2RF Referrals / Follow Up: Axel Nicholas MD [Primary Care Provider] - Disposition Disposition (needs filled in before D/C Order can be placed): [facility]
[2025-04-21 11:18] VITALS: BP 113/72; PULSE 88; RESP 24; TEMP 36.8; O2SAT 100
--- NOTE | 2025-04-21 11:19 | PCM.DC.SUM ---
Providers Date of Admission: 04/13/25 Date of Discharge: 04/21/25 Primary Care Physician: Dr. Axel Nicholas MD Consultations 04/13/25 18:18 Consult: Tele-Neurology Routine Consulting Provider: [facility] Reason for Consult: Acute Ischemic Stroke/TIA EMERGENT Consult: No Notified: Yes Date Notified: 04/13/25 Time Notified: 18:18 Method of Notification: Answering Service Nursing Unit Staff Notify [facility] of Tele-Neurology Consult: Yes 04/14/25 08:01 Consult: Cardiology Routine Consulting Provider: Rosalino Garcia Reason for Consult: worsening CHF w/ anasarca and worsening LIA EMERGENT Consult: No Notified: Yes Date Notified: 04/14/25 Time Notified: 08:13 Method of Notification: Text Consult: Nephrology Routine Consulting Provider: Elizabeth London Reason for Consult: worsening CHF w/ anasarca and worsening LIA EMERGENT Consult: No MD Notified: Yes Date Notified: 04/14/25 Time Notified: 08:23 Method of Notification: Answering Service Reason For Visit: ACUTE HFPEF, CONCERN FOR CAP Diagnosis Discharge Diagnosis (1) Acute renal insufficiency: Status: Inactive Code(s): N28.9 - Disorder of kidney and ureter, unspecified (2) Acute hyperkalemia: Status: Inactive Code(s): E87.5 - Hyperkalemia (3) Acute exacerbation of chronic heart failure: Status: Resolved Code(s): I50.9 - Heart failure, unspecified Plan 1. Acute exacerbation of chronic diastolic congestive heart failure-patient will remain on oral Lasix, labs will be monitored, patient will need pre-CERT to return to custodial care #2 ischemic cardiomyopathy-complicates care, management, recovery, and prognosis, EF is 20% #3 chronic hypoxic respiratory failure secondary to COPD and chronic diastolic congestive heart failure-pulse ox will be monitored, oxygen will be adjusted accordingly #4 acute kidney injury-BMP will be monitored as necessary, patient remains on Lasix and I have decided to give her fluids today, BMP will be rechecked tomorrow #5 hyperkalemia-corrected at this time #6 possible community-acquired pneumonia- I feel she has completed a course of treatment #7 Ischemic stroke left frontal lobe-left MCA distribution-continue aspirin and statin #8 oropharyngeal dysphagia-patient's diet was changed by speech therapy. They are participating in her care #9 type 2 diabetes-patient had incidence of low blood sugar this morning, will reevaluate her insulin dosage, fingerstick blood sugars continue to be monitored and she will receive sliding scale insulin Total clinical time spent by myself addressing the patient's medical issues, reviewing all of her data, and collaborating with patient's care team: 35-minute Medications at Discharge Home Medications aspirin 81 mg chewable tablet 81 mg PO DAILY HEART HEALTH 01/21/16 magnesium oxide 400 mg (241.3 mg magnesium) tablet 400 mg PO BID SUPPLEMENT 08/16/18 pantoprazole 40 mg tablet,delayed release 40 mg PO DAILY ACID REFLUX 12/02/19 empagliflozin 10 mg tablet (Jardiance) 10 mg PO DAILY DIABETES 10/18/20 multivitamin 1 tab PO DAILY VITAMIN 12/06/21 ascorbic acid (vitamin C) 250 mg tablet (Vitamin C) 250 mg PO DAILY SUPPLEMENT 08/13/23 roflumilast 500 mcg tablet 500 mcg PO DAILY COPD 08/13/23 budesonide 160 mcg-glycopyr 9 mcg-formot 4.8 mcg/actuation HFA inhaler (Breztri Aerosphere) 2 inh inhalation BID breathing 01/07/25 lancets 28 gauge (TRUEplus Lancets) 01/07/25 mecobalamin (vitamin B12) 1,000 mcg chewable tablet (B12 Active) 1,000 mcg PO DAILY health maintenance 01/15/25 menthol 0.44 %-zinc oxide 20.6 % topical ointment (CalaSoothe) 1 applic topical 4X/DAY PRN skin irritation 01/15/25 netarsudil 0.02 %-latanoprost 0.005 % eye drops (Monroelatan) 1 drp EACH EYE DAILY eye drops 01/15/25 psyllium husk 0.4 gram capsule (Daily Fiber) 0.4 g PO DAILY constipation 01/15/25 albuterol sulfate 90 mcg/actuation aerosol inhaler 2 puff inhalation Q6H PRN shortness of breath or wheezing 02/09/25 cetirizine 10 mg tablet 10 mg PO DAILY allergy 02/09/25 gabapentin 100 mg capsule 100 mg PO QHS NERVE PAIN 3 days #3 caps 02/17/25 guaifenesin 600 mg tablet, extended release 12 hr (Mucinex) 600 mg PO BID cough #0 tabs 02/17/25 furosemide 20 mg tablet 60 mg (3 x 20 mg) PO DAILY #90 tabs 04/08/25 metoprolol tartrate 25 mg tablet 25 mg PO BID #60 tabs 04/08/25 acetaminophen 325 mg tablet 650 mg (2 x 325 mg) PO Q6H PRN PRN Pain 1-10 Or Fever>100.7 #0 tabs 04/21/25 atorvastatin 40 mg tablet 80 mg (2 x 40 mg) PO QHS #0 tabs 04/21/25 hydroxyzine HCl 10 mg tablet 10 mg PO QHS #0 tabs 04/21/25 insulin glargine-yfgn 100 unit/mL (3 mL) subcutaneous pen 10 unit (0.1 mL) subcut BID #0 mL 04/21/25 insulin lispro 100 unit/mL subcutaneous pen (Humalog KwikPen (U-100) Insulin) See Protocol subcut ACHS #0 mL 04/21/25 ipratropium 0.5 mg-albuterol 3 mg (2.5 mg base)/3 mL nebulization soln 3 ml inhalation Q6HWA.RT #0 mL 04/21/25 Hospital Course Operations None Procedures 2-D Echocardiogram Summary of Care Provided Minutes Spent on Discharge: 33 Hospital Course: This 80-year-old black female was seen in the emergency room at [facility] after being transported in from a local extended care facility at which she was receiving inpatient skilled services due to shortness of breath. She had been complaining of wheezing and chest congestion as well as intermittent cough. Patient is on chronic oxygen at 3 L at the nursing facility. Labs were obtained, CBC showed a normal white blood cell count, hemoglobin was 8, and chemistry profile showed an elevated creatinine at 1.58 and elevated BUN at 34. Patient's troponin was elevated at 313 and her beta natruretic peptide was 32,513. Chest x-ray was performed which showed mild cardiomegaly with vascular congestion and CHF. Patient was admitted to PCU for treatment of congestive heart failure, she was placed on IV diuretics, shortly after arrival to the floor patient's mental status worsened and decision was made to get a CT of the brain, CT of the brain showed a focal hypodensity in the left frontal lobe that could represent an acute or subacute ischemic infarct. MRI of the brain could not be performed due to the fact the patient had bladder stimulator, echocardiogram was obtained which showed a severely decreased ejection fraction of 20% and the patient was seen in consultation by neurology. Patient's renal function worsened indicating acute kidney injury and she was seen in consultation by nephrology. Patient's mental alertness improved slightly but then she became less alert and a stroke team was ultimately called, by the time the patient reached CAT scan, patient was more alert, this episode happened in conjunction with a low blood sugar and it was felt that the hypoglycemia at least had a part in this episode. Patient improved slowly during her hospital stay, on 04/20/2025, patient was seen and examined:alert, oriented x2 and no apparent distress Constitutional Narrative: Patient appears frail General Appearance: cooperative, well kempt and well developed Orientation / Consciousness: awake, oriented to person and oriented to place HEENT normocephalic, head/scalp atraumatic and moist oral mucous membranes Eyes PERRL, EOMs intact bilaterally and conjunctivae normal Neck supple, no JVD, thyroid normal and no carotid bruits General: trachea midline Resp normal respiratory effort, no retractions, no use of accessory muscles and clear to auscultation bilaterally Auscultation: Negative for rales, rhonchi or wheezes Cardio regular rate, regular rhythm, S1 normal heart sound, S2 normal heart sound, no rub and no gallops GI normal to inspection, nondistended, normoactive bowel sounds, soft to palpation, non-tender and non-distended Extremity no clubbing, cyanosis or edema Skin no rashes or lesions noted General Skin Exam: no breakdown Neuro CN's II-XII intact bilaterally, moves all extremities, no focal motor deficits and no sensory deficits noted Sensorium / Orientation: awake, alert, oriented to person and oriented to place Speech: speech normal Psych Psych Narrative: Patient has flat affect Patient was felt to be stable for discharge back to her extended care facility on 04/20/2025. As an additional note, during the patient's hospitalization I had a long talk with the patient's and son concerning the patient's overall poor medical status-she has a very low ejection fraction-as well as chronic hypoxic respiratory failure and COPD along with CHF, they felt that the patient should be a full code however and wanted full measures during her hospitalization. Weight / BMI Weight Weight: 75.6 kg Body Mass Index (BMI) 29.5 ABG / Lab / Microbiology Data 04/20/25 08:35 04/21/25 08:15 Laboratory: Laboratory Results - last 24 hr 04/20/25 11:26: POC Glucose 126 H 04/20/25 17:10: POC Glucose 71 L 04/20/25 20:44: POC Glucose 93 04/20/25 21:16: POC Glucose 102 04/21/25 06:20: POC Glucose 70 L 04/21/25 08:15: Sodium 148 H, Potassium 4.4, Chloride 111 H, Carbon Dioxide 26.4, Anion Gap 11, BUN 45 H, Creatinine 1.57 H, Estim Creat Clear Calc 27.36 L, Est GFR (MDRD) Non-Af 33 L, BUN/Creatinine Ratio 28.4 H, Glucose 76, Calcium 10.8 Microbiology: Microbiology 04/13/25 09:30 Blood Culture (Wb) - Anticubital Left Blood Culture - Final No growth in 5 days. 04/13/25 08:30 Blood Culture (Wb) - Anticubital Left Blood Culture - Final No growth in 5 days. 04/13/25 09:51 Mucosa - Nose SARS-CoV-2, Influenza & RSV (PCR) - Final D/C Instructions DC O2, CPAP, BIPAP Needs Home O2 Discharge instructions: Yes Type of respiratory needs?: Oxygen Oxygen frequency: Continuous Continuous oxygen liters per minute: 3 L DC home with Oxygen: Yes Home O2 MD Review: I have reviewed the oxygen testing, and the patient qualifies for home oxygen equipment and portability. The patient is mobile in the home and the community. Meaningful Use Info Meaningful Use Meaningful Use Diagnoses (Choose all that apply): None applicable Discharge Plan Admission Admit Date/Time: 04/13/25 11:00 Primary Reason for Your Visit: Acute left cerebral stroke, acute CHF Attending Provider: Lucio Borden Primary Care Provider: Axel Nicholas Consulting Providers: Elizabeth London; Nestor Bartlett Instructions Additional Instructions / Restrictions: You may want to consider reinstituting a low-dose ALBA or ARB if the patient's creatinine stabilizes, or alternately, resuming Entresto-either way, patient's kidney functions will have to be monitored closely Discharge Orders/Prescriptions Prescriptions: New atorvastatin 40 mg Tablet 80 mg PO QHS Qty: 0 0RF acetaminophen 325 mg Tablet 650 mg PO Q6H PRN PRN (Reason: Pain 1-10 Or Fever>100.7) Qty: 0 0RF ipratropium-albuterol 0.5 mg-3 mg(2.5 mg base)/3 mL Solution For Nebulization 3 ml inhalation Q6HWA.RT Qty: 0 0RF hydroxyzine HCl 10 mg Tablet 10 mg PO QHS Qty: 0 0RF insulin lispro [Humalog KwikPen Insulin] 100 unit/mL Insulin Pen See Protocol subcut ACHS Qty: 0 0RF Protocol: 4. Sliding Scale Insulin High-Med Dosing Condition: 150-199 mg/dl = 2 units Condition: 200-259 mg/dl = 4 units Condition: 260-324 mg/dl = 6 units Condition: 325-374 mg/dl = 8 units Condition: 375-409 mg/dl = 10 units Condition: 410-449 mg/dl = 11 units Condition: Greater than 449 call physician Protocol Text: Suggested for: - Patients on Total Daily Insulin Dose of 56-80 units - Patient who are known to be insulin resistant or septic HIGH MEDIUM DOSING ALGORITHM insulin glargine-yfgn 100 unit/mL (3 mL) Insulin Pen 10 unit subcut BID Qty: 0 0RF Continued Jardiance 10 mg tablet 10 mg PO DAILY multivitamin Tablet 1 tab PO DAILY aspirin 81 MG tablet,chewable 81 mg PO DAILY magnesium oxide 400 MG tablet 400 mg PO BID pantoprazole 40 MG tablet 40 mg PO DAILY roflumilast 500 mcg tablet 500 mcg PO DAILY ascorbic acid (vitamin C) [Vitamin C] 250 mg tablet 250 mg PO DAILY menthol-zinc oxide [CalaSoothe] 0.44-20.6 % ointment 1 applic topical 4X/DAY PRN (Reason: skin irritation) psyllium husk [Daily Fiber] 0.4 gram capsule 0.4 g PO DAILY mecobalamin (vitamin B12) [B12 Active] 1,000 mcg tablet,chewable 1,000 mcg PO DAILY Rocklatan 0.02-0.005 % Drops 1 drp EACH EYE DAILY albuterol sulfate 90 mcg/actuation HFA aerosol inhaler 2 puff inhalation Q6H PRN (Reason: shortness of breath or wheezing) cetirizine 10 mg tablet 10 mg PO DAILY guaifenesin [Mucinex] 600 mg Tablet Extended Release 12hr 600 mg PO BID Qty: 0 0RF gabapentin 100 mg capsule 100 mg PO QHS 3 Days Qty: 3 0RF (DME) lancets [TRUEplus Lancets] 28 gauge misc MISCELLANEOUS Breztri Aerosphere 160-9-4.8 mcg/actuation HFA aerosol inhaler 2 inh inhalation BID furosemide 20 mg Tablet 60 mg PO DAILY Qty: 90 2RF metoprolol tartrate 25 mg Tablet 25 mg PO BID Qty: 60 2RF Discontinued Januvia 50 mg tablet 50 mg PO DAILY pravastatin 20 mg tablet 20 mg PO DAILY insulin lispro [Humalog KwikPen Insulin] 100 unit/mL Insulin Pen 10 unit subcut TIDAC Rx Instructions: Hold if glucose less than 120 mg/dl Mounjaro 5 mg/0.5 mL pen injector 5 mg subcut QWEEK Patient Comments: PT STATes she takes on mondays azelastine 137 mcg (0.1 %) spray,non-aerosol 1 - 2 spray INTRANASAL BID acetaminophen 500 mg Tablet 1,000 mg PO Q6H PRN (Reason: Pain Score 1-3) potassium chloride [K-Tab] 20 mEq tablet extended release 20 meq PO BID ipratropium-albuterol 0.5 mg-3 mg(2.5 mg base)/3 mL Solution For Nebulization 3 ml inhalation Q6H.RT Qty: 120 0RF hydroxyzine HCl 25 mg tablet 12.5 mg PO QHS diazepam 2 mg tablet 2 mg PO BID ipratropium bromide 21 mcg (0.03 %) spray,non-aerosol 1 - 2 spray INTRANASAL Q6H PRN (Reason: allergy symptoms) insulin glargine [Lantus Solostar U-100 Insulin] 100 unit/mL (3 mL) insulin pen 20 unit subcut BID sacubitril-valsartan [Entresto] 24-26 mg Tablet 1 tab PO BID Qty: 60 2RF Referrals / Follow Up: Axel Nicholas MD [Primary Care Provider] - Disposition Disposition (needs filled in before D/C Order can be placed): [facility] Charges/Coding Visit Charges Inpatient E&M: 32339 Disch Hosp >30min
[2025-04-21] MEDS: Insulin Glargine-YFGN 100 UNIT/ML Pen 10 UNIT SC (11:22)
--- NOTE | 2025-04-21 11:45 | CASEMGMT ---
Discharge Planning Discharge orders, signed med list, and transport time sent to [facility]. Physicians will transport pt by cot at 2:30p. Reasons for cot include but are not limited to; CHF exacerbation, AMS, a/o x1, varying cognition, unable to self-regulate O2 and need for supervision during transport. Nursing, SW, pt, and her updated. Mariana Wilson DC Planning Asst.
--- NOTE | 2025-04-21 12:30 | NURSING ---
Called in report to Shona MAYBERRY from [facility] at 12:30.
[2025-04-21 12:57] VITALS: BMI 29.5
== END 2025-04-21 14:17 | disposition skilled nursing facility (03) | DRG 291 ==
LOC: ED 10:53 → PCU 11:06
PROVIDERS: Family Medicine; Admitting Provider Hospitalist; Emergency Provider Student in an Organized Health Care Education/Training Program; PCP Internal Medicine; Visit Provider Internal Medicine
DX: I13.0 Hypertensive heart and chronic kidney disease with heart failure and stage 1 through stage 4 chronic kidney disease, or unspecified chronic kidney disease (principal); I63.512 Cerebral infarction due to unspecified occlusion or stenosis of left middle cerebral artery; J18.9 Pneumonia, unspecified organism; I50.23 Acute on chronic systolic (congestive) heart failure; I24.89 Other forms of acute ischemic heart disease; J44.0 Chronic obstructive pulmonary disease with (acute) lower respiratory infection; N17.9 Acute kidney failure, unspecified; J96.11 Chronic respiratory failure with hypoxia; E11.22 Type 2 diabetes mellitus with diabetic chronic kidney disease; N18.30 Chronic kidney disease, stage 3 unspecified; E66.811 Obesity, class 1; I25.10 Atherosclerotic heart disease of native coronary artery without angina pectoris; E11.42 Type 2 diabetes mellitus with diabetic polyneuropathy; E78.5 Hyperlipidemia, unspecified; K21.9 Gastro-esophageal reflux disease without esophagitis; I25.5 Ischemic cardiomyopathy; E87.5 Hyperkalemia; Z68.31 Body mass index [BMI] 31.0-31.9, adult; Z79.82 Long term (current) use of aspirin; Z79.84 Long term (current) use of oral hypoglycemic drugs; Z79.51 Long term (current) use of inhaled steroids; Z79.899 Other long term (current) drug therapy; Z86.718 Personal history of other venous thrombosis and embolism; Z87.891 Personal history of nicotine dependence
CPT/HCPCS: 36415; 36600; 70450; 70496; 70498; 71045; 71250; 74176; 74230; 80048; 80053; 80061; 81002; 82570; 82728; 82803; 82962; 83036; 83540; 83550; 83605; 83735; 83880; 84145; 84300; 84484; 84540; 85025; 85027; 87040; 87631; 92523; 92526; 92610; 92611; 93005; 93308; 93880; 94002; 94640; 94762; 97163; 97167; 97530; 97535; 99285; J1756; P9612; Q9957; Q9967; A4216; J1938

== ENCOUNTER 2025-04-24 11:29 | Inpatient (IN) | payer MEDICARE, SELFPAY ==
[2025-04-24] VITALS (22 sets, daily range): BP systolic 84–114; BP diastolic 33–96; PULSE 77–102; RESP 12–44; TEMP 36.5–37.6; O2SAT 92–100; BMI 31.1
--- NOTE | 2025-04-24 11:35 | EX.ED.DYSGE1 ---
HPI History of Present Illness Chief Complaint: Shortness of Breath Informant: patient Onset/Context/Timing Onset: Today Context: Gradual Onset Timing: Continuous Quality: Dyspnea Location: Chest Worsened by: Nothing Relieved by: Nothing Narrative Narrative: Patient presents with shortness of breath that became worse today. Patient states that he gradually got worse. Patient states it is constant. Patient denies any cough. Patient denies any chest pain. Patient is somewhat somnolent on examination. Patient is a poor informant. Patient was seen by a nurse practitioner at her extended care facility today. She reports the patient has been having some decreased oral intake and abdominal pain. She reports the patient refused blood work today. Patient was then referred to the emergency department. [facility] Medical History Neurogenic bladder Elevated d-dimer Obesity (BMI 30.0-34.9) Acute cystitis with hematuria Acute hypoxic respiratory failure Pneumonia COPD exacerbation Acute UTI Back muscle spasm Former smoker On home oxygen therapy Osteoporosis History of diabetes mellitus COPD exacerbation Hypoxia Elevated troponin Acute dyspnea COPD with exacerbation Anemia History of COPD Elevated brain natriuretic peptide (BNP) level Elevated troponin Acute hypoxemic respiratory failure Obesity (BMI 30.0-34.9) Elevated troponin Lactic acidosis Poor venous access Diabetic polyneuropathy Hypomagnesemia Debility Fracture of hip, left, closed Coronary artery disease Weakness Gastroenteritis Paronychia of left index finger Abscess Vaginal cyst Anxiety Depression Irregular heart beat Multiple thyroid nodules Postmenopausal bleeding Foraminal stenosis of lumbar region Lumbar spinal stenosis Diabetic retinopathy Colon polyp GERD (gastroesophageal reflux disease) Thyroid goiter Hyperlipidemia Hypokalemia Microcytic anemia Neurogenic bladder Hypophosphatemia Hypercalcemia Former smoker UTI (urinary tract infection) Iron deficiency anemia Aortic stenosis Hyponatremia Urine retention Chronic renal failure, stage 3 (moderate) Cellulitis and abscess of finger, unspecified Retinopathy Peripheral artery disease Leg weakness, bilateral GERD (gastroesophageal reflux disease) Chronic idiopathic constipation COPD (chronic obstructive pulmonary disease) Polypharmacy Hypertension Carpal tunnel syndrome of right wrist Strain of right rotator cuff capsule Rhinitis Urinary retention with incomplete bladder emptying Vitamin D deficiency Asthma Pruritus Goiter, nontoxic, multinodular Anemia Diabetes COPD (chronic obstructive pulmonary disease) History of constipation Hx of venous thrombosis and embolism History of malignant neoplasm of breast Hypertension Type 2 diabetes mellitus Asthma Home Medications ?Medication ?Instructions ?Recorded ?Last Taken ?Type aspirin 81 mg chewable tablet 81 mg PO DAILY [facility] 01/21/16 01/15/25 History magnesium oxide 400 mg (241.3 mg 400 mg PO BID SUPPLEMENT 08/16/18 01/15/25 History magnesium) tablet pantoprazole 40 mg tablet,delayed 40 mg PO DAILY ACID REFLUX 12/02/19 01/15/25 History release empagliflozin 10 mg tablet 10 mg PO DAILY DIABETES 10/18/20 01/15/25 History (Jardiance) multivitamin 1 tab PO DAILY VITAMIN 12/06/21 01/15/25 History ascorbic acid (vitamin C) 250 mg 250 mg PO DAILY SUPPLEMENT 08/13/23 01/15/25 History tablet (Vitamin C) roflumilast 500 mcg tablet 500 mcg PO DAILY COPD 08/13/23 01/15/25 History budesonide 160 mcg-glycopyr 9 2 inh inhalation BID breathing 01/07/25 01/15/25 History mcg-formot 4.8 mcg/actuation HFA inhaler (Breztri Aerosphere) lancets 28 gauge (TRUEplus Lancets) 01/07/25 Unknown History mecobalamin (vitamin B12) 1,000 1,000 mcg PO DAILY health 01/15/25 01/15/25 History mcg chewable tablet (B12 Active) maintenance menthol 0.44 %-zinc oxide 20.6 % 1 applic topical 4X/DAY PRN skin 01/15/25 Unknown History topical ointment (CalaSoothe) irritation netarsudil 0.02 %-latanoprost 1 drp EACH EYE DAILY eye drops 01/15/25 01/15/25 History 0.005 % eye drops (Rocklatan) psyllium husk 0.4 gram capsule 0.4 g PO DAILY constipation 01/15/25 01/15/25 History (Daily Fiber) albuterol sulfate 90 mcg/actuation 2 puff inhalation Q6H PRN 02/09/25 Unknown History aerosol inhaler shortness of breath or wheezing cetirizine 10 mg tablet 10 mg PO DAILY allergy 02/09/25 Unknown History gabapentin 100 mg capsule 100 mg PO QHS NERVE PAIN 3 days 02/17/25 Unknown Rx #3 caps guaifenesin 600 mg tablet, 600 mg PO BID cough #0 tabs 02/17/25 Unknown Rx extended release 12 hr (Mucinex) furosemide 20 mg tablet 60 mg (3 x 20 mg) PO DAILY #90 tabs 04/08/25 Unknown Rx metoprolol tartrate 25 mg tablet 25 mg PO BID #60 tabs 04/08/25 Unknown Rx acetaminophen 325 mg tablet 650 mg (2 x 325 mg) PO Q6H PRN PRN 04/21/25 Unknown Rx Pain 1-10 Or Fever>100.7 #0 tabs hydroxyzine HCl 10 mg tablet 10 mg PO QHS #0 tabs 04/21/25 Unknown Rx insulin lispro 100 unit/mL See Protocol subcut ACHS #0 mL 04/21/25 Unknown Rx subcutaneous pen (Humalog KwikPen (U-100) Insulin) ipratropium 0.5 mg-albuterol 3 mg 3 ml inhalation Q6HWA.RT #0 mL 04/21/25 Unknown Rx (2.5 mg base)/3 mL nebulization soln azelastine 137 mcg-fluticasone 50 1 spray intranasal BID 04/24/25 Unknown History mcg/spray nasal spray diazepam 2 mg tablet 2 mg PO BID muscle spasm 04/24/25 Unknown History insulin glargine-yfgn 100 unit/mL 20 unit subcut BID 04/24/25 Unknown History (3 mL) subcutaneous pen ipratropium bromide 21 mcg (0.03 2 spray intranasal Q6H 04/24/25 Unknown History %) nasal spray loratadine 10 mg tablet 10 mg PO DAILY 04/24/25 Unknown History (Allerclear) potassium chloride 20 mEq 20 meq PO BID 04/24/25 Unknown History tablet,extended release(part/cryst) pravastatin 20 mg tablet 20 mg PO DAILY 04/24/25 Unknown History sacubitril 24 mg-valsartan 26 mg 1 tab PO BID 04/24/25 Unknown History tablet (Entresto) sitagliptin phosphate 50 mg tablet 50 mg PO DAILY 04/24/25 Unknown History (Januvia) tirzepatide 5 mg/0.5 mL 5 mg subcut QWEEK 04/24/25 Unknown History subcutaneous pen injector (Mounjaro) Allergy/AdvReac Type Severity Reaction Status Date / Time adhesive tape (tape) Allergy NEEDS Verified 04/13/25 08:41 FOLLOW-UP cephalexin monohydrate (From Allergy Rash Verified 04/13/25 08:41 Keflex) clopidogrel bisulfate (From Allergy Other Verified 04/13/25 08:41 Plavix) oxycodone AdvReac Severe made me Verified 04/13/25 08:41 really crazy called [facility] emergency services manager on people amoxicillin AdvReac YEAST Verified 04/13/25 08:41 INFECTION Family History Daughter Breast cancer Father Hypertension Sister Cancer Kidney disease Mother Pancreatic cancer Surgical History History of left hip hemiarthroplasty S/P fine needle aspiration (~10/2020) H/O dilation and curettage (~07/10/20) History of Achilles tendon repair Retinopathy History of lumpectomy of left breast Social History household members: spouse Smoking Status: Former smoker alcohol intake: never substance use type: does not use caffeine: Yes what type of physical activity do you participate in: none seatbelt use: always do you feel safe at home: Yes additional social history: [employer]- retired ROS ROS ED Review of Systems ROS Unobtainable: due to mental status Constitutional Constitutional ED: Denies chills or fever(s) Cardiovascular Cardiovascular: Denies chest pain Respiratory/Chest Respiratory/Chest: Reports dyspnea; Denies cough Gastrointestinal Gastrointestinal: Reports abdominal pain; Denies nausea or vomiting Neurologic Neurologic: Reports weakness Allergic/Immunologic Allergic/Immunologic ED: Denies urticaria EXAM Physical Exam Const Vital Signs: 04/24/25 11:30 04/24/25 11:30 04/24/25 11:43 Temperature 98.6 F 98.6 F Temperature Source Axillary Axillary Pulse Rate 93 95 Respiratory Rate 42 H 44 H Respiratory Effort Short of Breath Labored Accessory Muscle Use Respiratory Pattern Hyperpnea Blood Pressure 84/56 L 84/56 L Blood Pressure Mean 65 65 Pulse Ox 100 100 Oxygen Delivery Method Nasal Cannula Nasal Cannula Nasal Cannula Oxygen Flow Rate (L/min) 2 2 2 Fraction of Inspired Oxygen (FIO2) 04/24/25 12:10 04/24/25 12:30 04/24/25 12:47 Temperature Temperature Source Pulse Rate 102 H Respiratory Rate 44 H Respiratory Effort Respiratory Pattern Tachypnea Blood Pressure Blood Pressure Mean Pulse Ox 96 100 Oxygen Delivery Method Nasal Cannula Nasal Cannula Oxygen Flow Rate (L/min) 2 Fraction of Inspired Oxygen (FIO2) 35 04/24/25 12:53 04/24/25 14:04 04/24/25 14:18 Temperature Temperature Source Pulse Rate 92 88 Respiratory Rate 40 H 39 H Respiratory Effort Respiratory Pattern Tachypnea Blood Pressure Blood Pressure Mean Pulse Ox 92 100 Oxygen Delivery Method Bi-pap Bi-pap Oxygen Flow Rate (L/min) Fraction of Inspired Oxygen (FIO2) 30 04/24/25 15:00 04/24/25 16:00 Temperature Temperature Source Pulse Rate 86 82 Respiratory Rate 40 H Respiratory Effort Respiratory Pattern Blood Pressure 114/96 H 96/39 L Blood Pressure Mean 102 58 Pulse Ox 100 Oxygen Delivery Method Bi-pap Oxygen Flow Rate (L/min) Fraction of Inspired Oxygen (FIO2) Positive well nourished and well developed General Appearance ED: well developed and NAD HEENT Reports moist mucous membranes Neck supple and no JVD Resp Resp Narrative: Patient is tachypneic. Patient has poor respiratory effort. Patient has diminished lung sounds. Auscultation: diminished lung sounds Cardio regular rate and regular rhythm GI non-distended Palpation: soft and tender epigastric, LLQ, RLQ, LUQ, RUQ, periumbilical and suprapubic; Negative for guarding or rebound tenderness present Extremity normal to inspection General Extremety ED: Negative for edema or tenderness General Extremity: Negative for edema Neuro CN's II-XII intact bilaterally Sensorium / Orientation: alert and orientation impaired Motor Exam: general weakness MDM MDM MDM Narrative Medical decision making narrative: Differential diagnosis includes bowel obstruction, perforation, electrolyte abnormality, dehydration, pneumonia, bronchitis, cardiac dysrhythmia, cardiac ischemia, sepsis, encephalopathy, and viral illness. CBC will be obtained to assess for leukocytosis and anemia. Comprehensive metabolic profile will be obtained to assess for electrolyte abnormality, hepatic function, and renal function. Lipase will be obtained to assess for pancreatitis. Lactate will be obtained to assess for sepsis. Urinalysis will be obtained to assess for urinary tract infection and hematuria. PT with INR and PTT will be obtained to assess for coagulopathy. Chest x-ray will be obtained to assess for pneumonia. EKG will be obtained to assess for cardiac dysrhythmia and cardiac ischemia. Blood cultures will be obtained to assess for sepsis. Urine cultures will be obtained to assess for urinary tract infection. Arterial blood gas will be obtained to assess for pH status and oxygenation. Serum ammonia level will be obtained to assess for hepatic encephalopathy. CT scan of the abdomen and pelvis will be obtained to assess for bowel obstruction and perforation. Lab Data Attestation: I reviewed the patient's lab results. Lab results narrative: CBC was reviewed. There is a leukocytosis of 14.7. Hemoglobin was 8.2 and hematocrit was 28.4. Platelets were normal. PT with INR and PTT were reviewed. Pro time was 18.9 and INR is 1.6. PTT was normal at 28.4. Comprehensive metabolic profile was reviewed. Sodium was slightly elevated at 149, potassium was mildly elevated at 5.5. BUN was elevated at 53 and creatinine was elevated 2.0. These are slightly increased from previous results. AST was elevated at 1312, ALT was 489, and alkaline phosphatase was 163. The AST and ALT were increased from previous results on 04/20/2025. Bilirubin was normal at 0.97. Ammonia level was reviewed and was normal at 18.4. Lipase was reviewed and was normal at 15. Urinalysis was reviewed. Leukocyte Estrace was 500. There are 25-50 white blood cells and 4+ yeast. Occult blood was 250 with greater than 100 red blood cells. Labs: Laboratory Results - last 24 hr 04/24/25 04/24/25 04/24/25 12:15 12:53 14:00 WBC 14.7 H RBC 3.25 L Hgb 8.2 L Hct 28.4 L MCV 87.4 MCH 25.2 L MCHC 28.9 L RDW Std Deviation 56.9 H RDW Coeff of Vijay 18.6 H Plt Count 327 MPV 11.2 Immature Gran % (Auto) 0.700 Neut % (Auto) 81.4 H Lymph % (Auto) 8.8 L Kimball % (Auto) 8.7 Eos % (Auto) 0.1 Baso % (Auto) 0.3 Absolute Neuts (auto) 11.9 H Absolute Lymphs (auto) 1.29 Nucleated RBC % 1.2 PT 18.9 H INR 1.6 APTT 28.4 Sodium 149 H Potassium 5.5 H Chloride 109 H Carbon Dioxide 24.4 Anion Gap 16 H BUN 53 H Creatinine 2.00 H Estim Creat Clear Calc 22.04 L Est GFR (MDRD) Non-Af 25 L BUN/Creatinine Ratio 26.6 H Glucose 242 H Lactic Acid 3.9 H* Calcium 10.8 Total Bilirubin 0.97 AST 1312 H ALT 489 H Alkaline Phosphatase 163 H Ammonia 18.4 Total Protein 6.7 Albumin 3.5 Globulin 3.3 Albumin/Globulin Ratio 1.1 Lipase 15 Urine Color Yellow Urine Clarity Cloudy Urine pH 6.0 Ur Specific [place] 1.015 Urine Protein 30 H Urine Glucose (UA) Normal Urine Ketones 5 H Urine Occult Blood 250 H Urine Nitrite Negative Urine Bilirubin Negative Urine Urobilinogen Normal Ur Leukocyte Esterase 500 H Urine RBC > 100 SEEN Urine WBC 25-50 SEEN Ur Squamous Epith Cells 0-5 SEEN Urine Bacteria 0 SEEN Urine Mucus 0 SEEN Urine Yeast 4+ POC Glucose 04/24/25 15:56 WBC RBC Hgb Hct MCV MCH MCHC RDW Std Deviation RDW Coeff of Vijay Plt Count MPV Immature Gran % (Auto) Neut % (Auto) Lymph % (Auto) Kimball % (Auto) Eos % (Auto) Baso % (Auto) Absolute Neuts (auto) Absolute Lymphs (auto) Nucleated RBC % PT INR APTT Sodium Potassium Chloride Carbon Dioxide Anion Gap BUN Creatinine Estim Creat Clear Calc Est GFR (MDRD) Non-Af BUN/Creatinine Ratio Glucose Lactic Acid Calcium Total Bilirubin AST ALT Alkaline Phosphatase Ammonia Total Protein Albumin Globulin Albumin/Globulin Ratio Lipase Urine Color Urine Clarity Urine pH Ur Specific [place] Urine Protein Urine Glucose (UA) Urine Ketones Urine Occult Blood Urine Nitrite Urine Bilirubin Urine Urobilinogen Ur Leukocyte Esterase Urine RBC Urine WBC Ur Squamous Epith Cells Urine Bacteria Urine Mucus Urine Yeast POC Glucose 228 H ABG Data ABG results: ABG 04/24/25 14:09 Specimen Type BALJIT Sample Site Not entered VBG pH 7.47 H VBG pO2 35 VBG HCO3 33 H VBG Total CO2 34 H VBG O2 Sat (Calc) 71 H VBG Base Excess 9 H POC Mix VBG pCO2 Pt Tmp 45.3 O2 Delivery Device Not entered Radiography Diagnostic Testing: Clinical Impression(s) from Imaging Studies Chest X-Ray 04/24/25 12:10 IMPRESSION: Cardiomegaly. Vascular congestion and CHF. Reading Location: [id number] Abdomen/Pelvis CT 04/24/25 13:27 IMPRESSION: Limited evaluation of the abdomen due to residual contrast. Large amount of fecal material seen in the rectum and distal colon. A Serna catheter is seen within the urinary bladder. Line multiple gallstones. Bilateral pleural effusions left greater than right and bibasilar atelectasis. Reading Location: [facility] Portable 1 view chest x-ray was obtained. On my independent interpretation, lung white showed vascular congestion and congestive heart failure. There is cardiomegaly. Bony thorax is normal. Radiologist also interpreted the x-ray and agrees. CT scan of the abdomen and pelvis was obtained. There is a large amount of fecal material in the rectum and distal colon. There are bilateral pleural effusions, worse on the left. EKG Initial EKG: Attestation: I personally reviewed and interpreted this EKG as follows: Interpretation: Sinus Rhythm (92) and Non-Specific ST Changes Comments: EKG was obtained. On my independent interpretation, it showed a normal sinus rhythm with a rate of 92. MA interval, QRS interval, and QTc intervals were all normal. [place] was normal. There are nonspecific ST-T wave changes. Prior EKG tracings: available for review Prior: Unchanged (04/13/2025) Treatment and Re-Evaluation :: Patient was given IV fluids. Patient was started on BiPAP. Patient was ordered Lasix, however, patient blood pressure dropped prior to administration of this. Patient was treated for the hyperkalemia with calcium gluconate, insulin, and dextrose. Patient was given a dose of Tylenol. Patient was started on Rocephin. Case was discussed with the hospitalist. She will admit the patient to ICU. Critical Care Time Critical Care Time: Yes Critical care time (excluding procedures): 30-74 minutes (41), Including time spent:, Discussing w/Patient &/or Family/[employer], Discussing w/Consultants, Arranging Admission or Transfer and Performing Direct Patient Care at Bedside Discharge Plan Triage Chief Complaint: Shortness of Breath ED Provider: Ramone Castillo Dx/Rx/DC Orders Clinical Impression: Sepsis, CHF exacerbation, Chronic hypoxic respiratory failure, Urinary tract infection, Abdominal pain, Chronic kidney disease Prescriptions: No Action Jardiance 10 mg tablet 10 mg PO DAILY multivitamin Tablet 1 tab PO DAILY aspirin 81 MG tablet,chewable 81 mg PO DAILY magnesium oxide 400 MG tablet 400 mg PO BID pantoprazole 40 MG tablet 40 mg PO DAILY roflumilast 500 mcg tablet 500 mcg PO DAILY ascorbic acid (vitamin C) [Vitamin C] 250 mg tablet 250 mg PO DAILY menthol-zinc oxide [CalaSoothe] 0.44-20.6 % ointment 1 applic topical 4X/DAY PRN (Reason: skin irritation) psyllium husk [Daily Fiber] 0.4 gram capsule 0.4 g PO DAILY mecobalamin (vitamin B12) [B12 Active] 1,000 mcg tablet,chewable 1,000 mcg PO DAILY Rocklatan 0.02-0.005 % Drops 1 drp EACH EYE DAILY albuterol sulfate 90 mcg/actuation HFA aerosol inhaler 2 puff inhalation Q6H PRN (Reason: shortness of breath or wheezing) cetirizine 10 mg tablet 10 mg PO DAILY guaifenesin [Mucinex] 600 mg Tablet Extended Release 12hr 600 mg PO BID Qty: 0 0RF gabapentin 100 mg capsule 100 mg PO QHS 3 Days Qty: 3 0RF acetaminophen 325 mg Tablet 650 mg PO Q6H PRN PRN (Reason: Pain 1-10 Or Fever>100.7) Qty: 0 0RF ipratropium-albuterol 0.5 mg-3 mg(2.5 mg base)/3 mL Solution For Nebulization 3 ml inhalation Q6HWA.RT Qty: 0 0RF hydroxyzine HCl 10 mg Tablet 10 mg PO QHS Qty: 0 0RF insulin lispro [Humalog KwikPen Insulin] 100 unit/mL Insulin Pen See Protocol subcut ACHS Qty: 0 0RF Protocol: 4. Sliding Scale Insulin High-Med Dosing Condition: 150-199 mg/dl = 2 units Condition: 200-259 mg/dl = 4 units Condition: 260-324 mg/dl = 6 units Condition: 325-374 mg/dl = 8 units Condition: 375-409 mg/dl = 10 units Condition: 410-449 mg/dl = 11 units Condition: Greater than 449 call physician Protocol Text: Suggested for: - Patients on Total Daily Insulin Dose of 56-80 units - Patient who are known to be insulin resistant or septic HIGH MEDIUM DOSING ALGORITHM azelastine-fluticasone 137-50 mcg/spray spray,non-aerosol 1 spray intranasal BID Rx Instructions: administer into each nostril diazepam 2 mg tablet 2 mg PO BID ipratropium bromide 21 mcg (0.03 %) spray,non-aerosol 2 spray INTRANASAL Q6H Patient Comments: [NO ORIGINAL SIG] sacubitril-valsartan [Entresto] 24-26 mg tablet 1 tab PO BID Januvia 50 mg tablet 50 mg PO DAILY Mounjaro 5 mg/0.5 mL pen injector 5 mg SUBCUT QWEEK Patient Comments: [NO ORIGINAL SIG] potassium chloride 20 mEq tablet,ER particles/crystals 20 meq PO BID insulin glargine-yfgn 100 unit/mL (3 mL) Insulin Pen 20 unit subcut BID pravastatin 20 mg tablet 20 mg PO DAILY loratadine [Allerclear] 10 mg tablet 10 mg PO DAILY (DME) lancets [TRUEplus Lancets] 28 gauge misc MISCELLANEOUS Breztri Aerosphere 160-9-4.8 mcg/actuation HFA aerosol inhaler 2 inh inhalation BID furosemide 20 mg Tablet 60 mg PO DAILY Qty: 90 2RF metoprolol tartrate 25 mg Tablet 25 mg PO BID Qty: 60 2RF Primary Care Provider: Axel Nicholas Referrals: Axel Nicholas MD [Primary Care Provider] - Print Language: Kinyarwanda Disposition Disposition: Acute Care Hospital [facility]
--- NOTE | 2025-04-24 12:10 | RAD_ITS ---
PROCEDURE: CHEST 1 VIEW (PORTABLE) 04/24/2025 REASON FOR EXAM: DYSPNEA TECHNIQUE: Frontal view of the chest. COMPARISON: Prior study dated April 20, 2025. FINDINGS: Hardware: EKG electrodes are seen. Heart: Moderate cardiomegaly. Lungs: Vascular congestion and mild CHF. Bones: Degenerative changes are identified within the thoracic spine. Other: RAD/Chest 1 View (Portable) IMPRESSION: Cardiomegaly. Vascular congestion and CHF. Reading Location: [facility]
--- NOTE | 2025-04-24 12:10 | EKG12_ITS ---
Test Reason : Blood Pressure : */* mmHG Vent. Rate : 92 BPM Atrial Rate : 92 BPM P-R Int : 142 ms QRS Dur : 84 ms QT Int : 358 ms P-R-T Axes : 58 51 -89 degrees QTcB Int : 442 ms Normal sinus rhythm Low voltage QRS ST & T wave abnormality, consider lateral ischemia Abnormal ECG Confirmed by IAM SABILLON ([id number]), editorial specialist ATTILA ESPINO ([id number]) on 04/25/2025 1:05:53 PM Referred By: Confirmed By: IAM SABILLON
[2025-04-24 12:31] LABS: Hematocrit 28.4 % (37-47); Hemoglobin 8.2 g/dL (12.0-15.0); Immature Granulocytes Count 0.110 X10^3/uL (0.0-0.0); Mean Corp Hgb Conc 28.9 g/dL (32-36); Mean Corpuscular Volume 87.4 fL (81-99); Mean Platelet Vol. 11.2 fl (6.2-12.0); NRBC Flagged by Analyzer 1.2 % (0-5); Platelet Count 327 K/mm3 (150-450); RBC Distribution Width CV 18.6 % (11.6-14.6); RBC Distribution Width SD 56.9 fl (35.1-43.9); Red Blood Count 3.25 M/mm3 (4.2-5.4); White Blood Count 14.7 K/mm3 (4.4-11.0)
[2025-04-24 12:40] LABS: Partial Thromboplast Time 28.4 Seconds (24.1-36.2); Prothrombin Time (Protime)PT. 18.9 SECONDS (11.7-14.9)
[2025-04-24 13:06] LABS: Mucous, Urine 0 SEEN /hpf (<or=2+)
[2025-04-24 13:07] LABS: Color, Urine Yellow (Yellow); Glucose, Dipstick Normal (Normal); Ketone-Dipstick 5 mg/dl (Negative); Leukocyte Esterase-Dipstick 500 /ul (Negative); Nitrite-Dipstick Negative (Negative); Occult Blood-Urine 250 /ul (Negative); Protein-Dipstick 30 mg/dl (Negative); Specific Gravity, Urine 1.015 (1.002-1.030); Urine Bilirubin Dipstick Negative (Negative)
[2025-04-24] MEDS: 0.9% Normal Saline (500mL Bag) 500 ML 999 ML IV (13:11)
[2025-04-24 13:15] LABS: Red Blood Cells-Urine > 100 SEEN /hpf (0-5)
[2025-04-24 13:17] LABS: Squamous Epithelial Cells - UA 0-5 SEEN /hpf (5-10); Yeast-Urine 4+ /hpf (None Seen)
--- NOTE | 2025-04-24 13:27 | CT_ITS ---
PROCEDURE: ABDOMEN/PELVIS WITHOUT CONT 04/24/2025 REASON FOR EXAM: ABDOMINAL PAIN Increasing shortness of breath. TECHNIQUE: ABDOMEN/PELVIS WITHOUT CONT Noncontrast technique limits evaluation of the abdominal and pelvic viscera. Coronal and Sagittal reconstruction series were provided. One or more dose reduction techniques were used (e.g., Automated exposure control, adjustment of the mA and/or kV according to patient size, use of iterative reconstruction technique). RADIATION DOSE SUMMARY: CTDlvol: 20.30 mGy DLP: 958.67 mGycm COMPARISON: Prior study dated April 13, 2025. FINDINGS: Lung bases: Bilateral pleural effusions left greater than right with bibasilar infiltration and/or atelectasis. Liver: Limited evaluation without IV contrast. No obvious abnormality is seen. Gallbladder: Multiple gallstones are seen within the dependent portion of the gallbladder lumen. Spleen: Normal size. Pancreas: Diffuse fatty atrophy. Adrenals: Unremarkable Kidneys: Unremarkable Bladder: A Serna catheter is seen within the bladder. The bladder is empty. Bowel: Large amount of residual barium is seen within the bowel limiting the evaluation. Large amount of fecal material is seen in the colorectal junction. This most likely represents a fecal Nahomy. Appendix: Not visualized Lymph nodes: Unremarkable. Vasculature: Extensive atherosclerotic calcification of the aorta and its major visceral branches. Peritoneum / Retroperitoneum: Unremarkable Bones: Degenerative changes of the spine. CT/Abdomen/Pelvis without Cont IMPRESSION: Limited evaluation of the abdomen due to residual contrast. Large amount of fecal material seen in the rectum and distal colon. A Serna catheter is seen within the urinary bladder. Line multiple gallstones. Bilateral pleural effusions left greater than right and bibasilar atelectasis. Reading Location: [id number]
[2025-04-24 13:28] LABS: AST(SGOT) 1312 U/L (<=31); Alanine Aminotransfer ALT/SGPT 489 U/L (<=34); Albumin, Serum 3.5 g/dL (3.4-4.8); Alkaline Phosphatase 163 U/L (35-104); Anion Gap 16 (5-15); BUN 53 mg/dL (4-19); BUN/Creat Ratio 26.6 RATIO (10-20); Calcium,Total 10.8 mg/dL (7.6-11.0); Carbon Dioxide 24.4 mmol/L (21.0-32.0); Chloride 109 mmol/L (98-108); Estimated Creatinine Clearance 22.04 ml/min (50-250); Globulin 3.3 g/dL (2.2-4.2); Glucose 242 mg/dL (70-99); Potassium 5.5 mmol/L (3.3-5.1)
[2025-04-24 14:12] LABS: SITE Not entered; VBG BASE EXCESS 9 mmol/L (-1.0-3.5); VBG PO2 35 mmHg (25-40); VBG SO2 71 % (50-70); VBG TCO2 34 mmol/L (23-33)
[2025-04-24 14:49] LABS: Ammonia 18.4 umol/L (11-51); Lipase 15 U/L (13-75)
--- NOTE | 2025-04-24 15:49 | ED.RN ---
Peg updated that patient is currently on BiPap and will more than likely be admitted to the hospital. No further questions from Peg nurse at this time
[2025-04-24] MEDS: Calcium Gluconate IV 3 GM in Syringe 1 EACH IV (16:08)
[2025-04-24] MEDS: Insulin Lispro 10 UNIT in Syringe 0 ML 6 UNIT IV (16:09)
--- NOTE | 2025-04-24 16:25 | ED.RN ---
Patient continues to pull BiPap mask off. Mask has been placed back on and patient continues to pull mask off. Patient placed in soft restraints. No family at bedside to redirect patient. Patient HOB raised 75 degrees, pt current pulled back to monitor patient.. Per Dr. Castillo patient can be placed in soft restraints
[2025-04-24] MEDS: Ceftriaxone 2 GM in 0.9% Normal Saline (50mL MB+) 50 ML IV (16:27)
[2025-04-24] MEDS: 0.9% Normal Saline (250mL Bag) 250 ML 999 ML IV (16:27)
[2025-04-24 16:30] LABS: Reflex Lactate? Y
--- NOTE | 2025-04-24 16:49 | ED.RN ---
Dr. mckeon at bedside, notified that pt. meets criteria for fluid resus and that [address] Mckay acknowledged, no further order.
--- NOTE | 2025-04-24 17:12 | PCM.HP.STD ---
HPI - General General Date of Admission: 04/24/25 Date of Service: 04/24/25 Chief Complaint: Shortness of breath and poor p.o. intake HPI Narrative OLGA DONALDSON, is [id number] female with a history of COPD, chronic hypoxic respiratory failure on home O2, GERD, diabetes, chronic diastolic heart failure who presented to [facility] ED 04/24/2025 with shortness of breath that worsened today. That has gradually worsened and is constant with no cough or chest pain. Patient did have decreased level of consciousness as well on presentation and is somewhat poor informant so history was obtained per report. Reportedly patient seen by FAC ENGINEER at [facility] and had been reporting some abdominal pain and decreased p.o. intake today as well as shortness of breath. When she refused blood work she was referred to the ED. In the ED temp 98.6, heart rate 93 and blood pressure 184/56, respiratory rate initially 42 and pulse ox 100% on 2 L nasal cannula. CBC showed a white blood cell count of 14.7, hemoglobin 8.2, sodium of 149 with potassium of 5.5, BUN of 53 and creatinine 2 which is up from 1.65 yesterday. AST found to be 1300 with an ALT of 489, alk phos of 163 and normal bili. UA somewhat suspicious however bacteria negative and lactic acid 3.9. VBG obtained which showed a pH of 7.47, bicarb of 33 with total carbon oxide of 34. Lipase 15 with ammonia 18.4. Chest x-ray demonstrated cardiomegaly and vascular congestion with CHF. Patient had Serna placed in the ED with instantly 1500 cc of dark urine out. CT abdomen pelvis with limited evaluation due to residual contrast in the abdomen but large amount of fecal material in rectum and distal colon, gallstones in dependent portion of gallbladder lumen, bilateral pleural effusions left greater than right with bibasilar infiltrate and/or atelectasis. Patient started on Rocephin for possible urinary source and hospitalist contacted for admission. Patient evaluated at bedside patient unable to purposely answer questions and is agitated and restless. Unable to obtain any additional history given patient's mental status and no family available at bedside. [facility] Medical History Neurogenic bladder Elevated d-dimer Obesity (BMI 30.0-34.9) Acute cystitis with hematuria Acute hypoxic respiratory failure Pneumonia COPD exacerbation Acute UTI Back muscle spasm Former smoker On home oxygen therapy Osteoporosis History of diabetes mellitus COPD exacerbation Hypoxia Elevated troponin Acute dyspnea COPD with exacerbation Anemia History of COPD Elevated brain natriuretic peptide (BNP) level Elevated troponin Acute hypoxemic respiratory failure Obesity (BMI 30.0-34.9) Elevated troponin Lactic acidosis Poor venous access Diabetic polyneuropathy Hypomagnesemia Debility Fracture of hip, left, closed Coronary artery disease Weakness Gastroenteritis Paronychia of left index finger Abscess Vaginal cyst Anxiety Depression Irregular heart beat Multiple thyroid nodules Postmenopausal bleeding Foraminal stenosis of lumbar region Lumbar spinal stenosis Diabetic retinopathy Colon polyp GERD (gastroesophageal reflux disease) Thyroid goiter Hyperlipidemia Hypokalemia Microcytic anemia Neurogenic bladder Hypophosphatemia Hypercalcemia Former smoker UTI (urinary tract infection) Iron deficiency anemia Aortic stenosis Hyponatremia Urine retention Chronic renal failure, stage 3 (moderate) Cellulitis and abscess of finger, unspecified Retinopathy Peripheral artery disease Leg weakness, bilateral GERD (gastroesophageal reflux disease) Chronic idiopathic constipation COPD (chronic obstructive pulmonary disease) Polypharmacy Hypertension Carpal tunnel syndrome of right wrist Strain of right rotator cuff capsule Rhinitis Urinary retention with incomplete bladder emptying Vitamin D deficiency Asthma Pruritus Goiter, nontoxic, multinodular Anemia Diabetes COPD (chronic obstructive pulmonary disease) History of constipation Hx of venous thrombosis and embolism History of malignant neoplasm of breast Hypertension Type 2 diabetes mellitus Asthma Home Medications ?Medication ?Instructions ?Recorded ?Last Taken ?Type aspirin 81 mg chewable tablet 81 mg PO DAILY HEART HEALTH 01/21/16 01/15/25 History magnesium oxide 400 mg (241.3 mg 400 mg PO BID SUPPLEMENT 08/16/18 01/15/25 History magnesium) tablet pantoprazole 40 mg tablet,delayed 40 mg PO DAILY ACID REFLUX 12/02/19 01/15/25 History release empagliflozin 10 mg tablet 10 mg PO DAILY DIABETES 10/18/20 01/15/25 History (Jardiance) multivitamin 1 tab PO DAILY VITAMIN 12/06/21 01/15/25 History ascorbic acid (vitamin C) 250 mg 250 mg PO DAILY SUPPLEMENT 08/13/23 01/15/25 History tablet (Vitamin C) roflumilast 500 mcg tablet 500 mcg PO DAILY COPD 08/13/23 01/15/25 History budesonide 160 mcg-glycopyr 9 2 inh inhalation BID breathing 01/07/25 01/15/25 History mcg-formot 4.8 mcg/actuation HFA inhaler (Breztri Aerosphere) lancets 28 gauge (TRUEplus Lancets) 01/07/25 Unknown History mecobalamin (vitamin B12) 1,000 1,000 mcg PO DAILY health 01/15/25 01/15/25 History mcg chewable tablet (B12 Active) maintenance menthol 0.44 %-zinc oxide 20.6 % 1 applic topical 4X/DAY PRN skin 01/15/25 Unknown History topical ointment (CalaSoothe) irritation netarsudil 0.02 %-latanoprost 1 drp EACH EYE DAILY eye drops 01/15/25 01/15/25 History 0.005 % eye drops (Rocklatan) psyllium husk 0.4 gram capsule 0.4 g PO DAILY constipation 01/15/25 01/15/25 History (Daily Fiber) albuterol sulfate 90 mcg/actuation 2 puff inhalation Q6H PRN 02/09/25 Unknown History aerosol inhaler shortness of breath or wheezing cetirizine 10 mg tablet 10 mg PO DAILY allergy 02/09/25 Unknown History gabapentin 100 mg capsule 100 mg PO QHS NERVE PAIN 3 days 02/17/25 Unknown Rx #3 caps guaifenesin 600 mg tablet, 600 mg PO BID cough #0 tabs 02/17/25 Unknown Rx extended release 12 hr (Mucinex) furosemide 20 mg tablet 60 mg (3 x 20 mg) PO DAILY #90 tabs 04/08/25 Unknown Rx metoprolol tartrate 25 mg tablet 25 mg PO BID #60 tabs 04/08/25 Unknown Rx acetaminophen 325 mg tablet 650 mg (2 x 325 mg) PO Q6H PRN PRN 04/21/25 Unknown Rx Pain 1-10 Or Fever>100.7 #0 tabs hydroxyzine HCl 10 mg tablet 10 mg PO QHS #0 tabs 04/21/25 Unknown Rx insulin lispro 100 unit/mL See Protocol subcut ACHS #0 mL 04/21/25 Unknown Rx subcutaneous pen (Humalog KwikPen (U-100) Insulin) ipratropium 0.5 mg-albuterol 3 mg 3 ml inhalation Q6HWA.RT #0 mL 04/21/25 Unknown Rx (2.5 mg base)/3 mL nebulization soln azelastine 137 mcg-fluticasone 50 1 spray intranasal BID 04/24/25 Unknown History mcg/spray nasal spray diazepam 2 mg tablet 2 mg PO BID muscle spasm 04/24/25 Unknown History insulin glargine-yfgn 100 unit/mL 20 unit subcut BID 04/24/25 Unknown History (3 mL) subcutaneous pen ipratropium bromide 21 mcg (0.03 2 spray intranasal Q6H 04/24/25 Unknown History %) nasal spray loratadine 10 mg tablet 10 mg PO DAILY 04/24/25 Unknown History (Allerclear) potassium chloride 20 mEq 20 meq PO BID 04/24/25 Unknown History tablet,extended release(part/cryst) pravastatin 20 mg tablet 20 mg PO DAILY 04/24/25 Unknown History sacubitril 24 mg-valsartan 26 mg 1 tab PO BID 04/24/25 Unknown History tablet (Entresto) sitagliptin phosphate 50 mg tablet 50 mg PO DAILY 04/24/25 Unknown History (Cata) tirzepatide 5 mg/0.5 mL 5 mg subcut QWEEK 04/24/25 Unknown History subcutaneous pen injector (Mounjaro) Allergy/AdvReac Type Severity Reaction Status Date / Time adhesive tape (tape) Allergy NEEDS Verified 04/13/25 08:41 FOLLOW-UP cephalexin monohydrate (From Allergy Rash Verified 04/13/25 08:41 Keflex) clopidogrel bisulfate (From Allergy Other Verified 04/13/25 08:41 Plavix) oxycodone AdvReac Severe made me Verified 04/13/25 08:41 really crazy called can filler on people amoxicillin AdvReac YEAST Verified 04/13/25 08:41 INFECTION Family History Daughter Breast cancer Father Hypertension Sister Cancer Kidney disease Mother Pancreatic cancer Surgical History History of left hip hemiarthroplasty S/P fine needle aspiration (~10/2020) H/O dilation and curettage (~07/10/20) History of Achilles tendon repair Retinopathy History of lumpectomy of left breast Social History household members: spouse Smoking Status: Former smoker alcohol intake: never substance use type: does not use caffeine: Yes what type of physical activity do you participate in: none seatbelt use: always do you feel safe at home: Yes additional social history: [employer]- retired ROS ROS Narrative Unable to obtain ROS secondary patient's mental status Vital Signs Vital Signs Vital Signs: 04/24/25 11:30 04/24/25 11:30 04/24/25 11:43 Temperature 98.6 F 98.6 F Temperature Source Axillary Axillary Pulse Rate 93 95 Respiratory Rate 42 H 44 H Respiratory Effort Short of Breath Labored Accessory Muscle Use Respiratory Pattern Hyperpnea Blood Pressure 84/56 L 84/56 L Blood Pressure Mean 65 65 Pulse Ox 100 100 Oxygen Delivery Method Nasal Cannula Nasal Cannula Nasal Cannula Oxygen Flow Rate (L/min) 2 2 2 Fraction of Inspired Oxygen (FIO2) 04/24/25 12:10 04/24/25 12:30 04/24/25 12:47 Temperature Temperature Source Pulse Rate 102 H Respiratory Rate 44 H Respiratory Effort Respiratory Pattern Tachypnea Blood Pressure Blood Pressure Mean Pulse Ox 96 100 Oxygen Delivery Method Nasal Cannula Nasal Cannula Oxygen Flow Rate (L/min) 2 Fraction of Inspired Oxygen (FIO2) 35 04/24/25 12:53 04/24/25 14:04 04/24/25 14:18 Temperature Temperature Source Pulse Rate 92 88 Respiratory Rate 40 H 39 H Respiratory Effort Respiratory Pattern Tachypnea Blood Pressure Blood Pressure Mean Pulse Ox 92 100 Oxygen Delivery Method Bi-pap Bi-pap Oxygen Flow Rate (L/min) Fraction of Inspired Oxygen (FIO2) 30 04/24/25 15:00 04/24/25 16:00 04/24/25 16:58 Temperature Temperature Source Pulse Rate 86 82 80 Respiratory Rate 40 H 36 H Respiratory Effort Respiratory Pattern Tachypnea Blood Pressure 114/96 H 96/39 L Blood Pressure Mean 102 58 Pulse Ox 100 100 Oxygen Delivery Method Bi-pap Oxygen Flow Rate (L/min) Fraction of Inspired Oxygen (FIO2) 30 Weight Weight: 79.6 kg Body Mass Index (BMI) 31.1 Physical Exam Narrative General: Laying in bed, agitated and restless HEENT: Atraumatic, normocephalic Eyes: Anicteric, normal conjunctiva, extraocular movements grossly intact Neck: Supple Respiratory: Diminished bilaterally and tachypneic Cardiovascular: Regular rate and rhythm GI: Soft, nondistended, no rigidity or guarding but patient nodded when asked if it was tender but it did not seem to localize Extremities: No peripheral edema Musculoskeletal: Moving all extremities Neuro: No overt focal neurological deficits though patient unable to participate in neuroexam Skin: No rashes appreciated Psych: Patient restless and agitated Results Lab / Micro Data 04/24/25 12:15 04/24/25 12:15 Labs: Laboratory Results - last 24 hr 04/24/25 12:15: WBC 14.7 H, RBC 3.25 L, Hgb 8.2 L, Hct 28.4 L, MCV 87.4, MCH 25.2 L, MCHC 28.9 L, RDW Std Deviation 56.9 H, RDW Coeff of Vijay 18.6 H, Plt Count 327, MPV 11.2, Immature Gran % (Auto) 0.700, Neut % (Auto) 81.4 H, Lymph % (Auto) 8.8 L, Mora % (Auto) 8.7, Eos % (Auto) 0.1, Baso % (Auto) 0.3, Absolute Neuts (auto) 11.9 H, Absolute Lymphs (auto) 1.29, Nucleated RBC % 1.2, PT 18.9 H, INR 1.6, APTT 28.4, Sodium 149 H, Potassium 5.5 H, Chloride 109 H, Carbon Dioxide 24.4, Anion Gap 16 H, BUN 53 H, Creatinine 2.00 H, Estim Creat Clear Calc 22.04 L, Est GFR (MDRD) Non-Af 25 L, BUN/Creatinine Ratio 26.6 H, Glucose 242 H, Lactic Acid 3.9 H*, Calcium 10.8, Total Bilirubin 0.97, AST 1312 H, ALT 489 H, Alkaline Phosphatase 163 H, Total Protein 6.7, Albumin 3.5, Globulin 3.3, Albumin/Globulin Ratio 1.1 04/24/25 12:53: Urine Color Yellow, Urine Clarity Cloudy, Urine pH 6.0, Ur Specific [place] 1.015, Urine Protein 30 H, Urine Glucose (UA) Normal, Urine Ketones 5 H, Urine Occult Blood 250 H, Urine Nitrite Negative, Urine Bilirubin Negative, Urine Urobilinogen Normal, Ur Leukocyte Esterase 500 H, Urine RBC > 100 SEEN, Urine WBC 25-50 SEEN, Ur Squamous Epith Cells 0-5 SEEN, Urine Bacteria 0 SEEN, Urine Mucus 0 SEEN, Urine Yeast 4+ 04/24/25 14:00: Ammonia 18.4, Lipase 15 04/24/25 15:56: POC Glucose 228 H ABG Data ABG results: ABG 04/24/25 14:09 Specimen Type BALJIT Sample Site Not entered VBG pH 7.47 H VBG pO2 35 VBG HCO3 33 H VBG Total CO2 34 H VBG O2 Sat (Calc) 71 H VBG Base Excess 9 H POC Mix VBG pCO2 Pt Tmp 45.3 O2 Delivery Device Not entered Imaging Radiology Impression Chest X-Ray 04/24/25 12:10 IMPRESSION: Cardiomegaly. Vascular congestion and CHF. Reading Location: [id number] Abdomen/Pelvis CT 04/24/25 13:27 IMPRESSION: Limited evaluation of the abdomen due to residual contrast. Large amount of fecal material seen in the rectum and distal colon. A Serna catheter is seen within the urinary bladder. Line multiple gallstones. Bilateral pleural effusions left greater than right and bibasilar atelectasis. Reading Location: [id number] Assessment & Plan Assessment/Plan (1) Sepsis: PLAN: Plan # Sepsis unclear definitive source - Patient tachypneic, elevated white blood cell count, LIA, lactic acid of 3.9, elevated liver enzymes, metabolic encephalopathy, now on BiPAP, INR 1.6 -Urine with blood, white cells, leuk esterase however no bacteria seen, 4+ yeast -CT of the abdomen did not reveal acute infectious etiology however did image the lung bases and it queried basilar infiltrate, given her shortness of breath prior to coming we will be treating empirically for possible pneumonic source -Pancultures -Also check COVID antigen and respiratory panel -Will broaden antibiotic coverage to Zosyn given her multiple recent hospitalizations -She was only given small amount of fluids in the ED due to her history of heart failure and kidney dysfunction -Will monitor in the ICU, we will give additional hydration cautiously -Will consult pitch worker - With patient's blood pressure and encephalopathy holding gabapentin and hydroxyzine, appears diazepam was filled in limited supply from the ED last month, unclear if she is still actively taking this, will need to clarify #LIA on CKD - Creatinine of 2 up from 1.65 yesterday -Suspect secondary to sepsis -Will cautiously proceed with further hydration -Patient did have 1500 out an improvement in her restlessness after Serna placement, possible that there is a component of postobstructive -Repeat in a.m., if any further worsening consider further workup and/or nephrology consult #fecaloma - Looking back at previous scans appears she has had a very large rectal stool burden before as well, will order Dulcolax and will likely need enemas - Will also schedule senna/docusate #Hyperkalemia - Received calcium, fluids and Lasix -Received insulin -Will repeat BMP - Hold home potassium supplementation #Elevated liver enzymes - May be due to the above -Abdominal pain is not focal, it is generalized and bilirubin within normal limits -Repeat in the a.m. -Can consider right upper quadrant ultrasound worsening or if there are any concerns for specific gallbladder pathology moving forward # Chronic hypoxic respiratory failure secondary to COPD and heart failure on 3 L home O2 -Patient saturating well, is only on BiPAP for work of breathing which I suspect may be in part compensatory due to her elevated lactic acid -I-S -Continue home nebs # Chronic heart failure with preserved ejection fraction -Daily weights -I's and O's -Hydrating cautiously - Hold metoprolol and Entresto given borderline blood pressures - Holding Lasix #Type 2 diabetes mellitus -Glucose checks and sliding scale insulin - Decrease home long-acting insulin - Holding home oral hypoglycemics #GERD -Continue PPI #DVT ppx: Heparin subcu Heydi Amaya MD Sepsis Attestation Sepsis Alert: Yes Sepsis Attestation: Agree w/Sepsis Date exam was performed: 04/24/25 Time exam was performed: 16:45 Possible Source of Sepsis: Pulmonary and Genitourinary Sepsis Organ Dysfunction Criteria Present: Acute Respiratory Failure (New need for BiPAP/CPAP or MV), INR > 1.5 or aPTT > 60 sec, Lactic Acid > 2 mmol/L and New/Unexplained change in mental status Supportive Findings: atient tachypneic, elevated white blood cell count, LIA, lactic acid of 3.9, elevated liver enzymes, metabolic encephalopathy, now on BiPAP, INR 1.6 Fluid Resuscitation Fluid resuscitation indicated?: Yes Fluid Resuscitation ordered: Lesser volume fluid bolus ordered Amount of fluid ordered: 500 Reason for lesser fluid bolus:: Heart failure and Renal Failure Charges/Coding Visit Charges Inpatient E&M: 45619 Init Hosp L3
[2025-04-24 17:13] LABS: Pro- Brain NATRIURETIC PEPTIDE 53692 pg/mL (<=1800)
--- NOTE | 2025-04-24 17:52 | ED.RN ---
Pt difficulty IV start, unable to obtain 2 large bore IV's
--- NOTE | 2025-04-24 18:10 | ED.RN ---
Report called to [facility]
[2025-04-24 20:53] LABS: Anion Gap 13 (5-15); BUN 54 mg/dL (4-19); BUN/Creat Ratio 25.6 RATIO (10-20); Calcium,Total 11.2 mg/dL (7.6-11.0); Carbon Dioxide 25.7 mmol/L (21.0-32.0); Chloride 112 mmol/L (98-108); Estimated Creatinine Clearance 20.89 ml/min (50-250); Glucose 175 mg/dL (70-99); Potassium 4.4 mmol/L (3.3-5.1)
[2025-04-24] MEDS: Piperacil/Tazobactam 3.375 GM in 0.9% Normal Saline (50mL MB+) 50 ML IV (22:02)
[2025-04-24] MEDS: Heparin Injection (Vial) 5,000 UNIT/ML VIAL 5000 UNIT SC (22:06)
[2025-04-24] MEDS: Insulin Glargine-YFGN 100 UNIT/ML Pen SC (22:09)
[2025-04-24] MEDS: 0.45% Normal Saline 1,000 ML 50 ML IV (22:43)
[2025-04-25] VITALS (29 sets, daily range): BP systolic 78–125; BP diastolic 34–78; PULSE 74–89; RESP 12–37; TEMP 36.3–36.8; O2SAT 90–100; BMI 29.5
[2025-04-25] MEDS: 0.9% Normal Saline (500mL Bag) 500 ML 999 ML IV (00:54)
[2025-04-25 04:32] LABS: Hematocrit 28.4 % (37-47); Hemoglobin 8.2 g/dL (12.0-15.0); Immature Granulocytes Count 0.050 X10^3/uL (0.0-0.0); Mean Corp Hgb Conc 28.9 g/dL (32-36); Mean Corpuscular Volume 88.8 fL (81-99); Mean Platelet Vol. 11.3 fl (6.2-12.0); NRBC Flagged by Analyzer 0.4 % (0-5); Platelet Count 256 K/mm3 (150-450); RBC Distribution Width CV 18.7 % (11.6-14.6); RBC Distribution Width SD 57.8 fl (35.1-43.9); Red Blood Count 3.20 M/mm3 (4.2-5.4); White Blood Count 10.1 K/mm3 (4.4-11.0)
[2025-04-25 04:49] LABS: AST(SGOT) 678 U/L (<=31); Alanine Aminotransfer ALT/SGPT 430 U/L (<=34); Albumin, Serum 3.4 g/dL (3.4-4.8); Alkaline Phosphatase 148 U/L (35-104); Anion Gap 13 (5-15); BUN 57 mg/dL (4-19); BUN/Creat Ratio 28.0 RATIO (10-20); Calcium,Total 11.1 mg/dL (7.6-11.0); Carbon Dioxide 25.7 mmol/L (21.0-32.0); Chloride 113 mmol/L (98-108); Estimated Creatinine Clearance 21.71 ml/min (50-250); Globulin 3.1 g/dL (2.2-4.2); Glucose 148 mg/dL (70-99); Potassium 4.4 mmol/L (3.3-5.1)
[2025-04-25] MEDS: Piperacil/Tazobactam 3.375 GM in 0.9% Normal Saline (50mL MB+) 50 ML IV ×3 (05:30→20:55)
[2025-04-25] MEDS: Budesonide Respules 0.5 MG/2 ML AMPUL.NEB. INHALATION ×2 (07:12→18:57)
--- NOTE | 2025-04-25 07:25 | PCM.PN.HOSP ---
Reason for Visit Chief Complaint: Shortness of breath and poor p.o. intake Subjective Subjective anxious. confused. Poor IV access and PICC line ordered. Objective Data Objective Data Vital Signs: Vital Signs Temp Pulse Resp BP Pulse Ox O2 Del Method O2 Flow Rate 36.7 C 82 24 H 100/54 L 95 Nasal Cannula 3 04/25/25 06:00 04/25/25 07:14 04/25/25 07:14 04/25/25 06:00 04/25/25 07:14 04/25/25 07:14 04/25/25 07:14 FiO2 35 04/25/25 04:00 Oxygen Flow Rate (L/min) 3 Oxygen Delivery Method Nasal Cannula Weight: 75.5 kg Body Mass Index (BMI) 29.5 Intake & Output: Intake and Output for Last 24 Hours 04/23/25 04/24/25 04/25/25 23:59 23:59 23:59 Intake Total 1080 / 1080 550 / 550 Output Total 400 / 400 Balance 1080 / 1080 150 / 150 Lab / Micro Data 04/25/25 04:20 04/25/25 04:20 Labs: Laboratory Results - last 24 hr 04/24/25 12:15: WBC 14.7 H, RBC 3.25 L, Hgb 8.2 L, Hct 28.4 L, MCV 87.4, MCH 25.2 L, MCHC 28.9 L, RDW Std Deviation 56.9 H, RDW Coeff of Vijay 18.6 H, Plt Count 327, MPV 11.2, Immature Gran % (Auto) 0.700, Neut % (Auto) 81.4 H, Lymph % (Auto) 8.8 L, [place] % (Auto) 8.7, Eos % (Auto) 0.1, Baso % (Auto) 0.3, Absolute Neuts (auto) 11.9 H, Absolute Lymphs (auto) 1.29, Nucleated RBC % 1.2, PT 18.9 H, INR 1.6, APTT 28.4, Sodium 149 H, Potassium 5.5 H, Chloride 109 H, Carbon Dioxide 24.4, Anion Gap 16 H, BUN 53 H, Creatinine 2.00 H, Estim Creat Clear Calc 22.04 L, Est GFR (MDRD) Non-Af 25 L, BUN/Creatinine Ratio 26.6 H, Glucose 242 H, Lactic Acid 3.9 H*, Calcium 10.8, Total Bilirubin 0.97, AST 1312 H, ALT 489 H, Alkaline Phosphatase 163 H, Total Protein 6.7, Albumin 3.5, Globulin 3.3, Albumin/Globulin Ratio 1.1 04/24/25 12:53: Urine Color Yellow, Urine Clarity Cloudy, Urine pH 6.0, Ur Specific [place] 1.015, Urine Protein 30 H, Urine Glucose (UA) Normal, Urine Ketones 5 H, Urine Occult Blood 250 H, Urine Nitrite Negative, Urine Bilirubin Negative, Urine Urobilinogen Normal, Ur Leukocyte Esterase 500 H, Urine RBC > 100 SEEN, Urine WBC 25-50 SEEN, Ur Squamous Epith Cells 0-5 SEEN, Urine Bacteria 0 SEEN, Urine Mucus 0 SEEN, Urine Yeast 4+ 04/24/25 14:00: Ammonia 18.4, [place] [address] H, Lipase 15 04/24/25 15:56: POC Glucose 228 H 04/24/25 17:28: POC Glucose 210 H 04/24/25 19:55: Sodium 151 H, Potassium 4.4, Chloride 112 H, Carbon Dioxide 25.7, Anion Gap 13, BUN 54 H, Creatinine 2.11 H, Estim Creat Clear Calc 20.89 L, Est GFR (MDRD) Non-Af 23 L, BUN/Creatinine Ratio 25.6 H, Glucose 175 H, Lactic Acid 2.7 H*, Calcium 11.2 H 04/24/25 22:08: POC Glucose 179 H 04/25/25 02:13: POC Glucose 121 H 04/25/25 04:20: WBC 10.1, RBC 3.20 L, Hgb 8.2 L, Hct 28.4 L, MCV 88.8, MCH 25.6 L, MCHC 28.9 L, RDW Std Deviation 57.8 H, RDW Coeff of Vijay 18.7 H, Plt Count 256, MPV 11.3, Immature Gran % (Auto) 0.500, Neut % (Auto) 76.3 H, Lymph % (Auto) 14.6 L, [place] % (Auto) 6.8, Eos % (Auto) 1.4, Baso % (Auto) 0.4, Absolute Neuts (auto) 7.7, Absolute Lymphs (auto) 1.47, Nucleated RBC % 0.4, Sodium 151 H, Potassium 4.4, Chloride 113 H, Carbon Dioxide 25.7, Anion Gap 13, BUN 57 H, Creatinine 2.03 H, Estim Creat Clear Calc 21.71 L, Est GFR (MDRD) Non-Af 24 L, BUN/Creatinine Ratio 28.0 H, Glucose 148 H, Calcium 11.1 H, Total Bilirubin 0.64, AST 678 H, ALT 430 H, Alkaline Phosphatase 148 H, Total Protein 6.5, Albumin 3.4, Globulin 3.1, Albumin/Globulin Ratio 1.1 04/25/25 05:28: POC Glucose 125 H Micro: Microbiology 04/24/25 19:05 Nasal Secretion SARS-CoV-2 Antigen (Rapid) - Final ABG Data ABG results: ABG 04/24/25 14:09 Specimen Type BALJIT Sample Site Not entered VBG pH 7.47 H VBG pO2 35 VBG HCO3 33 H VBG Total CO2 34 H VBG O2 Sat (Calc) 71 H VBG Base Excess 9 H POC Mix VBG pCO2 Pt Tmp 45.3 O2 Delivery Device Not entered Radiography Diagnostic Testing: Radiology Impression Chest X-Ray 04/24/25 12:10 IMPRESSION: Cardiomegaly. Vascular congestion and CHF. Reading Location: [facility] Abdomen/Pelvis CT 04/24/25 13:27 IMPRESSION: Limited evaluation of the abdomen due to residual contrast. Large amount of fecal material seen in the rectum and distal colon. A Serna catheter is seen within the urinary bladder. Line multiple gallstones. Bilateral pleural effusions left greater than right and bibasilar atelectasis. Reading Location: [facility] Physical Exam Narrative POCUS: Indication is for shock and heart failure. Subxiphoid view, IVC was noted to be dilated and noncompressible with inspiration. LV was grossly hypokinetic through subxiphoid, PLAX, and apical views. B-lines noted throughout the anterior pulmonary white. Due to anxiety, unable to visualize lateral as well as posterior lung white. Const Constitutional Narrative: lying on left side when I arrived. HEENT head/scalp atraumatic and moist oral mucous membranes Resp normal respiratory effort, no retractions, no use of accessory muscles and clear to auscultation bilaterally Cardio regular rate, regular rhythm, S1 normal heart sound and S2 normal heart sound GI normal to inspection, nondistended, normoactive bowel sounds, soft to palpation and non-tender Extremity General Extremity: edema bilateral lower extremity Details: moderate Neuro Sensorium / Orientation: awake Psych Mood & Affect: anxious Assessment & Plan Assessment/Plan (1) Sepsis: PLAN: Unclear source Follow up BCX, UCx. Respiratory panel, COVID negative. on pip/tazo CCM consult Unable to give patient's 30 cc/kg of IV fluids given her history of heart failure. (2) LIA (acute kidney injury): PLAN: On CKD IV. monitor (3) HFrEF (heart failure with reduced ejection fraction): PLAN: Acute on chronic Increased pleural effusion from February. Increased weight on admission from recent discharge about 4 kg. Given low BP, hold off on further furosemide. Echo shows an EF 20% (04/13/2025), mild to mod , mild TR (EF down from December where it was 35-40%) (4) Pleural effusion: PLAN: Worsened from February. Likely 2/2 CHF. Attempt to diuresis as able. If continues to worsen may need to consider thoracentesis. (5) Constipation: PLAN: Marked constipation. Add magnesium citrate. Given her agitation, patient would not tolerate suppositories. May need to consider enema if patient does not take the magnesium citrate. (6) Hypernatremia: PLAN: Ongoing since prior to his discharge (7) Hyperkalemia: PLAN: resolved after treatment (8) Difficult intravenous access: PLAN: PICC line ordered and is placing a triple-lumen catheter cumbersome and patient at high risk of self discontinuation agitation. PLAN: Plan DM2: on Glargine 5 BID, SSI. GERD: continue PPI. glaucoma: latanoprost VTE prophylaxis: SQ heparin. CODE STATUS: Verified as full upon admission. To clarify goals of care with the family. Charges/Coding Visit Charges Inpatient E&M: 85589 Subs Hosp L3
[2025-04-25] MEDS: Senna/Docusate Sodium 1 Tablet 2 TABLET PO ×2 (10:06→20:47)
[2025-04-25] MEDS: ROFLUMILAST 500 MCG TABLET PO (10:07)
[2025-04-25] MEDS: Azelastine HCl NASAL.SRY 1 SPRAY NASAL ×2 (10:07→20:54)
[2025-04-25] MEDS: Fluticasone 0.05% 1 SPRAY NASAL.SRY NASAL ×2 (10:08→20:54)
[2025-04-25] MEDS: Heparin Injection (Vial) 5,000 UNIT/ML VIAL 5000 UNIT SC ×2 (10:09→20:46)
--- NOTE | 2025-04-25 13:57 | CASEMGMT ---
Social Work SW participated in ICU rounds this morning. Pt is here from [place]. SW reached out to Jaylyn from [employer], pt's son and are working w/her to apply for Medicaid. She states that there is some money to be spent down, and there are some life insurance plans also that need addressed, but that pt will likely qualify. SW called pt's , son answered, he states pt's is talking on the other phone. Pt's son confirms the plan will be for pt to return to [place] at d/c. SW will send updates in [facility], will continue to follow. JERSEY Wells
--- NOTE | 2025-04-25 14:23 | CHAPLAIN ---
Type of Pastoral Visit _x__ Initial Visit ___ Follow-up Visit ___ On-call Visit ___ General Patient Visit ___ Spiritual Assessment ___ Family Conference ___ Bereavement ___ Rapid Response ___ Code Blue ___ Other (describe below) Pastoral Care Referral From ___ Patient ___ Family _x__ Nurse ___ Physician ___ Fast Food Supervisor ___ Manufacturing Specialist ___ Other (describe below) Sacrament/Intervention ___ Active listening ___ Anointing ___ Samaritan ___ Bereavement ___ Communion ___ Kristal exploration ___ ___ Life review ___ Prayer ___ Reconciliation ___ Sacrament of Sick _x__ Supportive presence ___ Wedding ___ Other (describe below) Pastoral Comments RN asked for visit to this patient who has been seen many times by this hardboard grinder; pt has been calling out to [place]; pt at time of visit however denied needs or concerns other than wanting to sleep; pt may be experiencing some confusion; supportive presence and reminders of good care and God's presence for her now
[2025-04-25] MEDS: Latanoprost 0.005% 1 Bottle 1 DRP EACH EYE (20:47)
[2025-04-25] MEDS: MELATONIN 10 MG TABLET PO (20:59)
[2025-04-26] VITALS (18 sets, daily range): BP systolic 77–122; BP diastolic 41–95; PULSE 65–94; RESP 14–38; TEMP 36.3–36.9; O2SAT 87–100; BMI 29.1
[2025-04-26 03:34] LABS: Hematocrit 26.2 % (37-47); Hemoglobin 7.7 g/dL (12.0-15.0); Immature Granulocytes Count 0.060 X10^3/uL (0.0-0.0); Mean Corp Hgb Conc 29.4 g/dL (32-36); Mean Corpuscular Volume 88.2 fL (81-99); Mean Platelet Vol. 11.5 fl (6.2-12.0); NRBC Flagged by Analyzer 0.5 % (0-5); Platelet Count 233 K/mm3 (150-450); RBC Distribution Width CV 19.2 % (11.6-14.6); RBC Distribution Width SD 59.8 fl (35.1-43.9); Red Blood Count 2.97 M/mm3 (4.2-5.4); White Blood Count 11.1 K/mm3 (4.4-11.0)
[2025-04-26 04:07] LABS: Anion Gap 13 (5-15); BUN 58 mg/dL (4-19); BUN/Creat Ratio 29.5 RATIO (10-20); Calcium,Total 10.7 mg/dL (7.6-11.0); Carbon Dioxide 25.4 mmol/L (21.0-32.0); Chloride 116 mmol/L (98-108); Estimated Creatinine Clearance 21.68 ml/min (50-250); Glucose 115 mg/dL (70-99); Potassium 3.8 mmol/L (3.3-5.1)
--- NOTE | 2025-04-26 04:49 | CPS ---
Patient did not wear Bipap overnight due to agitation and ripping leads off
[2025-04-26] MEDS: Piperacil/Tazobactam 3.375 GM in 0.9% Normal Saline (50mL MB+) 50 ML IV ×2 (05:15→14:10)
[2025-04-26] MEDS: Budesonide Respules 0.5 MG/2 ML AMPUL.NEB. INHALATION ×2 (06:38→20:15)
--- NOTE | 2025-04-26 07:31 | PCM.PN.HOSP ---
Reason for Visit Chief Complaint: Shortness of breath and poor p.o. intake Subjective Subjective Periodically agitated and somnloent. Objective Data Objective Data Vital Signs: Vital Signs Temp Pulse Resp BP Pulse Ox O2 Del Method O2 Flow Rate 36.6 C 78 22 H 107/58 L 94 Nasal Cannula 2 04/26/25 06:00 04/26/25 06:38 04/26/25 06:38 04/26/25 06:00 04/26/25 06:38 04/26/25 06:38 04/26/25 06:38 FiO2 35 04/25/25 04:00 Oxygen Flow Rate (L/min) 2 Oxygen Delivery Method Nasal Cannula Weight: 74.7 kg Body Mass Index (BMI) 29.1 Intake & Output: Intake and Output for Last 24 Hours 04/24/25 04/25/25 04/26/25 23:59 23:59 23:59 Intake Total 1080 / 1080 1272 / 1272 50 / 50 Output Total 675 / 1125 450 / 450 Balance 1080 / 1080 597 / 147 -400 / -400 Lab / Micro Data 04/26/25 03:25 04/26/25 03:25 Labs: Laboratory Results - last 24 hr 04/24/25 21:12: POC Glucose 169 H 04/25/25 10:06: POC Glucose 145 H 04/25/25 14:40: POC Glucose 126 H 04/25/25 17:58: POC Glucose 115 H 04/25/25 20:44: POC Glucose 112 H 04/26/25 01:13: POC Glucose 94 04/26/25 03:25: WBC 11.1 H, RBC 2.97 L, Hgb 7.7 L, Hct 26.2 L, MCV 88.2, MCH 25.9 L, MCHC 29.4 L, RDW Std Deviation 59.8 H, RDW Coeff of Vijay 19.2 H, Plt Count 233, MPV 11.5, Immature Gran % (Auto) 0.500, Neut % (Auto) 77.1 H, Lymph % (Auto) 12.8 L, Tate % (Auto) 6.6, Eos % (Auto) 2.6, Baso % (Auto) 0.4, Absolute Neuts (auto) 8.5 H, Absolute Lymphs (auto) 1.41, Nucleated RBC % 0.5, Sodium 154 H, Potassium 3.8, Chloride 116 H, Carbon Dioxide 25.4, Anion Gap 13, BUN 58 H, Creatinine 1.97 H, Estim Creat Clear Calc 21.68 L, Est GFR (MDRD) Non-Af 25 L, BUN/Creatinine Ratio 29.5 H, Glucose 115 H, Calcium 10.7 04/26/25 05:11: POC Glucose 110 H Micro: Microbiology 04/24/25 19:05 Mucosa - Nasopharyngeal Respiratory Panel (PCR) - Final 04/24/25 19:05 Nasal Secretion SARS-CoV-2 Antigen (Rapid) - Final Physical Exam Const Constitutional Narrative: awakes briefly, then doses off. HEENT head/scalp atraumatic and moist oral mucous membranes Neck no lymphadenopathy Resp Resp Narrative: coarse breath sounds bilatearlly. Cardio regular rate, regular rhythm, S1 normal heart sound and S2 normal heart sound GI normal to inspection, nondistended, normoactive bowel sounds, soft to palpation, non-tender and non-distended Neuro oriented x3 and CN's II-XII intact bilaterally Assessment & Plan Assessment/Plan (1) Sepsis: PLAN: Unclear source Follow up BCX, UCx. Respiratory panel, COVID negative. on pip/tazo CCM consult Unable to give patient's 30 cc/kg of IV fluids on admission given her history of heart failure. (2) LIA (acute kidney injury): PLAN: On CKD IV. Stable. monitor unable to administer IVF given findings of pulmonary edema on CXR Pt has since been started on furosemide. With the kidney function not worsening despite the furosemide, possibly could be hypoperfusion from her cardiomyopathy. (3) HFrEF (heart failure with reduced ejection fraction): PLAN: Acute on chronic Increased pleural effusion from February. Increased weight on admission from recent discharge about 4 kg. Echo shows an EF 20% (04/13/2025), mild to mod , mild TR (EF down from December where it was 35-40%) since started on furosemide: no ACEi/ARB/Entresto given LIA. (4) Pleural effusion: PLAN: Worsened from February. Likely 2/2 CHF. Attempt to diuresis as able. If continues to worsen may need to consider thoracentesis. (5) Constipation: PLAN: Resolved before mag citrate administered. (6) Hypernatremia: PLAN: Ongoing since prior to his discharge continue to monitor. (7) Hyperkalemia: PLAN: resolved after treatment (8) Difficult intravenous access: PLAN: PICC line placed PLAN: Plan DM2: on Glargine 5 BID, SSI. GERD: continue PPI. glaucoma: latanoprost VTE prophylaxis: SQ heparin. CODE STATUS: Verified as full upon admission. Pad of care met with the patient's family and the plan is were return to the retirement with hospice services. Patient's CODE STATUS is now DNR Comfort Care arrest no intubation. Charges/Coding Visit Charges Inpatient E&M: 20453 Subs Hosp L2
--- NOTE | 2025-04-26 08:30 | CASEMGMT ---
Discharge Planning Pt will need a new precert to return and no Palliative referral has been made by the snf. SW updated. Mariana Wilson DC Planning Asst.
--- NOTE | 2025-04-26 10:30 | CASEMGMT ---
Social Work SW attended ICU rounds. Referral has been made for Palliative Medicine. Palliative LABOR/EXCAVATOR has contacted family and has a meeting with them at 1pm today. SW to continue to follow. TANIA Mandujano
[2025-04-26] MEDS: Heparin Injection (Vial) 5,000 UNIT/ML VIAL 5000 UNIT SC (10:56)
[2025-04-26] MEDS: Azelastine HCl NASAL.SRY 1 SPRAY NASAL ×2 (10:57→22:55)
[2025-04-26] MEDS: Fluticasone 0.05% 1 SPRAY NASAL.SRY NASAL (11:02)
--- NOTE | 2025-04-26 11:11 | PCM.CONS.P ---
[facility] Medical History Neurogenic bladder Elevated d-dimer Obesity (BMI 30.0-34.9) Acute cystitis with hematuria Acute hypoxic respiratory failure Pneumonia COPD exacerbation Acute UTI Back muscle spasm Former smoker On home oxygen therapy Osteoporosis History of diabetes mellitus COPD exacerbation Hypoxia Elevated troponin Acute dyspnea COPD with exacerbation Anemia History of COPD Elevated brain natriuretic peptide (BNP) level Elevated troponin Acute hypoxemic respiratory failure Obesity (BMI 30.0-34.9) Elevated troponin Lactic acidosis Poor venous access Diabetic polyneuropathy Hypomagnesemia Debility Fracture of hip, left, closed Coronary artery disease Weakness Gastroenteritis Paronychia of left index finger Abscess Vaginal cyst Anxiety Depression Irregular heart beat Multiple thyroid nodules Postmenopausal bleeding Foraminal stenosis of lumbar region Lumbar spinal stenosis Diabetic retinopathy Colon polyp GERD (gastroesophageal reflux disease) Thyroid goiter Hyperlipidemia Hypokalemia Microcytic anemia Neurogenic bladder Hypophosphatemia Hypercalcemia Former smoker UTI (urinary tract infection) Iron deficiency anemia Aortic stenosis Hyponatremia Urine retention Chronic renal failure, stage 3 (moderate) Cellulitis and abscess of finger, unspecified Retinopathy Peripheral artery disease Leg weakness, bilateral GERD (gastroesophageal reflux disease) Chronic idiopathic constipation COPD (chronic obstructive pulmonary disease) Polypharmacy Hypertension Carpal tunnel syndrome of right wrist Strain of right rotator cuff capsule Rhinitis Urinary retention with incomplete bladder emptying Vitamin D deficiency Asthma Pruritus Goiter, nontoxic, multinodular Anemia Diabetes COPD (chronic obstructive pulmonary disease) History of constipation Hx of venous thrombosis and embolism History of malignant neoplasm of breast Hypertension Type 2 diabetes mellitus Asthma Home Medications ?Medication ?Instructions ?Recorded ?Last Taken ?Type aspirin 81 mg chewable tablet 81 mg PO DAILY HEART HEALTH 01/21/16 01/15/25 History magnesium oxide 400 mg (241.3 mg 400 mg PO BID SUPPLEMENT 08/16/18 01/15/25 History magnesium) tablet pantoprazole 40 mg tablet,delayed 40 mg PO DAILY ACID REFLUX 12/02/19 01/15/25 History release empagliflozin 10 mg tablet 10 mg PO DAILY DIABETES 10/18/20 01/15/25 History (Jardiance) multivitamin 1 tab PO DAILY VITAMIN 12/06/21 01/15/25 History ascorbic acid (vitamin C) 250 mg 250 mg PO DAILY SUPPLEMENT 08/13/23 01/15/25 History tablet (Vitamin C) roflumilast 500 mcg tablet 500 mcg PO DAILY COPD 08/13/23 01/15/25 History budesonide 160 mcg-glycopyr 9 2 inh inhalation BID breathing 01/07/25 01/15/25 History mcg-formot 4.8 mcg/actuation HFA inhaler (Breztri Aerosphere) lancets 28 gauge (TRUEplus Lancets) 01/07/25 Unknown History mecobalamin (vitamin B12) 1,000 1,000 mcg PO DAILY health 01/15/25 01/15/25 History mcg chewable tablet (B12 Active) maintenance menthol 0.44 %-zinc oxide 20.6 % 1 applic topical 4X/DAY PRN skin 01/15/25 Unknown History topical ointment (CalaSoothe) irritation netarsudil 0.02 %-latanoprost 1 drp EACH EYE DAILY eye drops 01/15/25 01/15/25 History 0.005 % eye drops (Rocklatan) psyllium husk 0.4 gram capsule 0.4 g PO DAILY constipation 01/15/25 01/15/25 History (Daily Fiber) albuterol sulfate 90 mcg/actuation 2 puff inhalation Q6H PRN 02/09/25 Unknown History aerosol inhaler shortness of breath or wheezing cetirizine 10 mg tablet 10 mg PO DAILY allergy 02/09/25 Unknown History gabapentin 100 mg capsule 100 mg PO QHS NERVE PAIN 3 days 02/17/25 Unknown Rx #3 caps guaifenesin 600 mg tablet, 600 mg PO BID cough #0 tabs 02/17/25 Unknown Rx extended release 12 hr (Mucinex) furosemide 20 mg tablet 60 mg (3 x 20 mg) PO DAILY #90 tabs 04/08/25 Unknown Rx metoprolol tartrate 25 mg tablet 25 mg PO BID #60 tabs 04/08/25 Unknown Rx acetaminophen 325 mg tablet 650 mg (2 x 325 mg) PO Q6H PRN PRN 04/21/25 Unknown Rx Pain 1-10 Or Fever>100.7 #0 tabs hydroxyzine HCl 10 mg tablet 10 mg PO QHS #0 tabs 04/21/25 Unknown Rx insulin lispro 100 unit/mL See Protocol subcut ACHS #0 mL 04/21/25 Unknown Rx subcutaneous pen (Humalog KwikPen (U-100) Insulin) ipratropium 0.5 mg-albuterol 3 mg 3 ml inhalation Q6HWA.RT #0 mL 04/21/25 Unknown Rx (2.5 mg base)/3 mL nebulization soln azelastine 137 mcg-fluticasone 50 1 spray intranasal BID 04/24/25 Unknown History mcg/spray nasal spray diazepam 2 mg tablet 2 mg PO BID muscle spasm 04/24/25 Unknown History insulin glargine-yfgn 100 unit/mL 20 unit subcut BID 04/24/25 Unknown History (3 mL) subcutaneous pen ipratropium bromide 21 mcg (0.03 2 spray intranasal Q6H 04/24/25 Unknown History %) nasal spray loratadine 10 mg tablet 10 mg PO DAILY 04/24/25 Unknown History (Allerclear) potassium chloride 20 mEq 20 meq PO BID 04/24/25 Unknown History tablet,extended release(part/cryst) pravastatin 20 mg tablet 20 mg PO DAILY 04/24/25 Unknown History sacubitril 24 mg-valsartan 26 mg 1 tab PO BID 04/24/25 Unknown History tablet (Entresto) sitagliptin phosphate 50 mg tablet 50 mg PO DAILY 04/24/25 Unknown History (Pateluvbob) tirzepatide 5 mg/0.5 mL 5 mg subcut QWEEK 04/24/25 Unknown History subcutaneous pen injector (Prabhu) Allergy/AdvReac Type Severity Reaction Status Date / Time adhesive tape (tape) Allergy NEEDS Verified 04/13/25 08:41 FOLLOW-UP cephalexin monohydrate (From Allergy Rash Verified 04/25/25 07:24 Keflex) clopidogrel bisulfate (From Allergy Other Verified 04/13/25 08:41 Plavix) oxycodone AdvReac Severe made me Verified 04/13/25 08:41 really crazy called keno writer/runner on people amoxicillin AdvReac YEAST Verified 04/13/25 08:41 INFECTION Family History Daughter Breast cancer Father Hypertension Sister Cancer Kidney disease Mother Pancreatic cancer Surgical History History of left hip hemiarthroplasty S/P fine needle aspiration (~10/2020) H/O dilation and curettage (~07/10/20) History of Achilles tendon repair Retinopathy History of lumpectomy of left breast Social History household members: spouse Smoking Status: Former smoker alcohol intake: never substance use type: does not use caffeine: Yes what type of physical activity do you participate in: none seatbelt use: always do you feel safe at home: Yes additional social history: [employer]- retired Prior Cardiac Testing/Procedures Prior Cardiac Testing/Procedures: Echocardiogram (Previous echocardiogram showed EF of 20% with mild to moderate aortic stenosis.) ROS ROS Narrative Patient was unable to participate initially but was able to participate in the afternoon Constitutional Constitutional: Reports as per HPI Eyes Eyes: Reports systems reviewed and no addt'l complaints, except as documented ENT HEENT: Reports systems reviewed and no addt'l complaints, except as documented Cardiovascular Cardiovascular: Reports dyspnea, dyspnea at rest, dyspnea on exertion and fatigue Respiratory/Chest Respiratory/Chest: Reports chest congestion Gastrointestinal Gastrointestinal: Reports systems reviewed and no addt'l complaints, except as documented and constipation Genitourinary Genitourinary: Reports as per HPI Musculoskeletal Musculoskeletal: Reports as per HPI Integumentary Integumentary: Reports as per HPI Neurologic Neurologic: Reports as per HPI Psychiatric Psychiatric: Reports as per HPI Hematologic/Lymphatic Hematologic/Lymphatic: Reports as per HPI Allergic/Immunologic Allergic/Immunologic: Reports as per HPI Physical Exam Const Constitutional Narrative: Patient is oriented x 2 Orientation / Consciousness: confused Resp Effort and Inspection: tachypneic Auscultation: crackles and diminished lung sounds Cardio regular rate GI GI Narrative: Large bowel movement reported today. Skin Skin Narrative: Lips for dry Neuro Neuro Narrative: Moves all extremities. Is able to answer orientation question of name, sons name, date of and that she is in the hosptial Psych affect normal Charges/Coding Palliative Care Palliative Care: 34610 New Pt Consult 80+ min HPI Current admission Current Code Status: Full code Associated Diagnosis: Sepsis, congestive heart failure, pulmonary edema, LIA, CHF with reduced EF 20%, hyperkalemia. Consult Data Date of Consult: 04/26/25 Location of consult: ICU to Reason for referral: Goals of care Referral source: Dr. Veras Palliative care diagnosis (Summary list): CHF with reduced EF of 20%, sepsis, LIA, Hyperkalemia Palliative care services/treatment (Accepted, as consult): Excepted by sonSarita Junior Case discussed with referring provider: Scheduled family meeting today for 1300: decision for DNRCC and in facility hospice HPI Narrative HPI Narrative: 04/26/2025 JPG: Prior to meeting with the patient at bedside, I reviewed documentation, labs and radiological studies. I also discussed patient's progress with RN. Per RN, patient continually takes nasal cannula out of her nose. Oxygen saturations on room air are 83% she is on home O2 at 2 L. I was consulted by the ICU physician for goals of care conversation as the patient is currently a full code and has had multiple hospital admissions in the last month. 02/15/2025 to 02/17/2025, 03/21/2025 to 03/25/2020:, 04/02/2025 to 04/08/2025, 04/13/2025 to 04/21/2025 and then readmitted on 04/24 for worsening symptoms. After discharge 04/21/2025 patient did go to [facility] and then readmitted. On readmission chest x-ray does show that the patient has bilateral pleural effusion possibly requiring thoracentesis, LIA with a BUN of 58, creatinine of 1.97 and a GFR 25. She is hyperatremic at 154. CT of the abdomen did show gallstones. She has an elevated liver enzymes AST 1312, ALT 489 and alkaline phosphate 163. I then met with the patient, Olga, at bedside. She was minimally interactive and was only able to tell me her date of being the fourth but was unable to tell me the year. Any other orientation questions were met with mumbles. She did not open her eyes during assessment. Patient was not able to provide review of systems. I then contacted the patient's family to set up a family meeting for goals of care going forward given the patient's multiple admissions to the hospital as well as declining mental and physical status. I did speak with her son, Diann Gatica whom is POA, during a family meeting at bedside with Olga (after Olga's whom is unable to participate in [facility] meeting related to dementia. ) Olga was alert and oriented x 2 during the meeting. She immediately recognized her son and was able to state his name, that she was in the hospital, she knew her name and date of . She was confused about the date and year. We were able to have a meaningful conversation about GOC with her and Sarita Arias endorsed that she does not wish to have CPR or be intubated. I discussed this with Sarita and he is in agreement that if his mothers heart were to stop, that we will allow for natural and provide comfort. Both are in agreement. We then discussed current quality of life issues. Sarita did express that his mother is mostly in bed and has not been able to get out of bed in a while. We discussed his mothers heart failure and latest ECHO with an EF of 20%. I explained to him what that means and he states understanding. She confirmed that she is tired of coming to the hospital and has been in the hospital more than out. We discussed options going forward to include hospice. Olga and Sarita both stated that they are familiar with hospice. I provided them with information about what that would look like for her. Olga states that she wants to no longer have blood draws and just wants to be comfortable. Sarita agreed with his mother and would like to transition Olga back to [facility] on hospice. They would like to start comfort measures here in the hospital. I did have Sarita Piper sign the DNRCC paperwork. Nurse, , did come to bedside to also confirm the decisions that Olga and Sarita were making and feels that they are aware of their decision and have good insight. All questions were answered. per ICU provider:OLGA DONALDSON, is [id number] female with a history of COPD, chronic hypoxic respiratory failure on home O2, GERD, diabetes, chronic diastolic heart failure who presented to [facility] ED 04/24/2025 with shortness of breath that worsened today. That has gradually worsened and is constant with no cough or chest pain. Patient did have decreased level of consciousness as well on presentation and is somewhat poor informant so history was obtained per report. Reportedly patient seen by SHIPPING SERVICES SALES REPRESENTATIVE at [facility] and had been reporting some abdominal pain and decreased p.o. intake today as well as shortness of breath. When she refused blood work she was referred to the ED. In the ED temp 98.6, heart rate 93 and blood pressure 184/56, respiratory rate initially 42 and pulse ox 100% on 2 L nasal cannula. CBC showed a white blood cell count of 14.7, hemoglobin 8.2, sodium of 149 with potassium of 5.5, BUN of 53 and creatinine 2 which is up from 1.65 yesterday. AST found to be 1300 with an ALT of 489, alk phos of 163 and normal bili. UA somewhat suspicious however bacteria negative and lactic acid 3.9. VBG obtained which showed a pH of 7.47, bicarb of 33 with total carbon oxide of 34. Lipase 15 with ammonia 18.4. Chest x-ray demonstrated cardiomegaly and vascular congestion with CHF. Patient had Serna placed in the ED with instantly 1500 cc of dark urine out. CT abdomen pelvis with limited evaluation due to residual contrast in the abdomen but large amount of fecal material in rectum and distal colon, gallstones in dependent portion of gallbladder lumen, bilateral pleural effusions left greater than right with bibasilar infiltrate and/or atelectasis. Patient started on Rocephin for possible urinary source and hospitalist contacted for admission. Patient evaluated at bedside patient unable to purposely answer questions and is agitated and restless. Unable to obtain any additional history given patient's mental status and no family available at bedside. Palliative Assessment Advanced Directive - Current Admission Advance Directive: Advance Directive ON ADMISSION - REFERENCE Do you have a Healthcare Yes 04/24/25 19:25 Living Will? Is a Healthcare Living Will Yes, It is scanned in 04/24/25 19:25 present in the medical record? Do you have a Healthcare Power Yes 04/24/25 19:25 of Human Service Worker? Is a Healthcare Power of Yes, It is scanned in 04/24/25 19:25 Human Service Worker present in the medical rec Do You Want Additional Yes 04/24/25 19:25 Information on Advanced Directives or Healthcare Proxy/DPOA comments: Patient's , Sarita Medina who has dementia, son, Sarita Erazo whom is coming for the patient's family today. Psychosocial/Spiritual Information Living situation/Marital status: Patient was living at home prior to multiple admissions. Most recently she has been living in nursing facilities and has spent a significant amount of time in the hospital. [place]: [place] Supports: Family Presybeterian/Kristal or spiritual preference: congregation Spiritual distress: denies Prior functional status: Patient has been living in nursing homes as of late and in bed Assistive devices at home: denies Cultrual issues: denies Information about the patient as a person: family Symptoms Palliative performance scale: 20 Palliative prognostic index: 15.0 (PPI is greater than 6.0, survival is less than 3 weeks). Prognosis is very guarded Dyspnea symptoms: Moderate Constipation symptoms: Moderate Nausea symptoms: None Vomiting symptoms: None Depression symptoms: None Anorexia symptoms: None (NPO currently ) Fatigue symptoms: Moderate Weakness symptoms: Moderate Confusion symptoms: Mild Side Effects & Interventions: Limited related to mental status Objective Data Objective Data Noted abnormals: Hemoglobin 7.7, hematocrit 26.9, sodium 154, BUN 58, creatinine 1.97, GFR 25, on 04/24/2025, AST 1312, ALT 489, alkaline phosphate 163. Vital Signs: Vital Signs Temp Pulse Resp BP Pulse Ox O2 Del Method O2 Flow Rate 97.8 F 78 22 H 107/58 L 94 Nasal Cannula 2 04/26/25 06:00 04/26/25 06:38 04/26/25 06:38 04/26/25 06:00 04/26/25 06:38 04/26/25 08:00 04/26/25 08:00 FiO2 35 04/25/25 04:00 Oxygen Flow Rate (L/min) 2 Oxygen Delivery Method Nasal Cannula Weight: 164 lb 10.965 oz Body Mass Index (BMI) 29.1 Intake & Output: Intake and Output for Last 24 Hours 04/24/25 04/25/25 04/26/25 23:59 23:59 23:59 Intake Total 1080 / 1080 1272 / 1272 50 / 50 Output Total 675 / 1125 625 / 625 Balance 1080 / 1080 597 / 147 -575 / -575 Lab / Micro Data Attestation: I reviewed the patient's lab results. 04/26/25 03:25 04/26/25 03:25 Labs: Laboratory Results - last 24 hr 04/25/25 14:40: POC Glucose 126 H 04/25/25 17:58: POC Glucose 115 H 04/25/25 20:44: POC Glucose 112 H 04/26/25 01:13: POC Glucose 94 04/26/25 03:25: WBC 11.1 H, RBC 2.97 L, Hgb 7.7 L, Hct 26.2 L, MCV 88.2, MCH 25.9 L, MCHC 29.4 L, RDW Std Deviation 59.8 H, RDW Coeff of Vijay 19.2 H, Plt Count 233, MPV 11.5, Immature Gran % (Auto) 0.500, Neut % (Auto) 77.1 H, Lymph % (Auto) 12.8 L, [place] % (Auto) 6.6, Eos % (Auto) 2.6, Baso % (Auto) 0.4, Absolute Neuts (auto) 8.5 H, Absolute Lymphs (auto) 1.41, Nucleated RBC % 0.5, Sodium 154 H, Potassium 3.8, Chloride 116 H, Carbon Dioxide 25.4, Anion Gap 13, BUN 58 H, Creatinine 1.97 H, Estim Creat Clear Calc 21.68 L, Est GFR (MDRD) Non-Af 25 L, BUN/Creatinine Ratio 29.5 H, Glucose 115 H, Calcium 10.7 04/26/25 05:11: POC Glucose 110 H Micro: Microbiology 04/24/25 19:05 Mucosa - Nasopharyngeal Respiratory Panel (PCR) - Final 04/24/25 19:05 Nasal Secretion SARS-CoV-2 Antigen (Rapid) - Final Impressions & Recommendations Patient & Family Issues discussed with the patient and family: Goals of care going forward: family and pt request comfort measures and hospice Patient goal: wants comfort focused care Family goal: wants to honor his mothers wishes and understands her desire for comfort focused care and hospice Recommentation Palliative recommendations: qualifies for hospice. I also recommend patient code status changed to DNR/DNI only, related to benefits versus burdens and chronic illnesses. Encouter Achieved as a result of this Palliative Care Encounter: [ [id number], [id number], [id number]] = 139 minutes were spent in total for this visit which consisted, primarily of counseling and education dealing with the complex and emotionally intense issues of symptom management and palliative care in the setting of serious and potentially life-threatening illness. Review of documentation, labs and radiological studies. ?Patient/family had the opportunity to ask questions Plan (1) HFrEF (heart failure with reduced ejection fraction): PLAN: Medical management per primary team (2) Chronic hypoxic respiratory failure: PLAN: Medical management per primary team (3) CHF exacerbation: QUALIFIERS: Heart failure type: systolic Qualified Code(s): I50.23 - Acute on chronic systolic (congestive) heart failure PLAN: Medical management per primary team (4) Hyperkalemia: PLAN: Medical management per primary team (5) Pleural effusion: PLAN: Medical management for primary team (6) Palliative care encounter: PLAN: - Family meeting to establish goals of care going forward -family/pt decision of DNRCC -pt and family requesting hospice in facility
--- NOTE | 2025-04-26 14:17 | CHAPLAIN ---
Type of Pastoral Visit ___ Initial Visit ___ Follow-up Visit ___ On-call Visit ___ General Patient Visit ___ Spiritual Assessment ___ Family Conference ___ Bereavement ___ Rapid Response ___ Code Blue _x__ Other (describe below) Pastoral Care Referral From ___ Patient ___ Family ___ Nurse ___ Physician ___ Radio Time Salesperson ___ Inserting Press Operator _x__ Other (describe below) Sacrament/Intervention _x__ Active listening ___ Anointing ___ Pentecostalism ___ Bereavement ___ Communion ___ Kristal exploration ___ ___ Life review _x__ Prayer ___ Reconciliation ___ Sacrament of Sick _x__ Supportive presence ___ Wedding ___ Other (describe below) Pastoral Comments Palliative Care RN notified this homeworker of patient choosing hospice; son is also present in patient's room; offered support to both patient and son; pt is awake and able to answer questions; pt welcomes prayer; son is tearful; offer of support to son who is slow to respond and to give much in dialogue; calm and kind words given with focus on the spiritual kristal of the patient
--- NOTE | 2025-04-26 14:22 | CASEMGMT ---
Social Work SW spoke with the patient's son and confirmed they want a referral sent to hospice. Referral was faxed to [facility]. APOLLO Rodriguez
--- NOTE | 2025-04-26 16:22 | CASEMGMT ---
Social Work Return call from [facility] and meeting has been set with family for 1330 tomorrow. Nursing updated. SW notified [facility] that family is requesting hospice care and return to [facility]. [facility] confirms they are able to accept pt back with hospice services. MILE will continue to follow for discharge planning. TANIA Mandujano
[2025-04-26] MEDS: LORazepam 2 MG/ML Bottle 0.5 MG SL ×2 (19:00→23:18)
[2025-04-27 03:00] VITALS: BP 122/57; PULSE 89; RESP 20; TEMP 36.6; O2SAT 100
[2025-04-27] MEDS: LORazepam 2 MG/ML Bottle 0.5 MG SL ×3 (04:03→13:14)
[2025-04-27 06:00] VITALS: BMI 28.6
[2025-04-27 07:20] VITALS: O2SAT 92
[2025-04-27 07:33] LABS: Hematocrit 29.4 % (37-47); Hemoglobin 8.5 g/dL (12.0-15.0); Immature Granulocytes Count 0.090 X10^3/uL (0.0-0.0); Mean Corp Hgb Conc 28.9 g/dL (32-36); Mean Corpuscular Volume 89.1 fL (81-99); Mean Platelet Vol. 11.7 fl (6.2-12.0); NRBC Flagged by Analyzer 0.9 % (0-5); POSITIVE MORPHOLOGY YES; Platelet Count 229 K/mm3 (150-450); RBC Distribution Width CV 19.7 % (11.6-14.6); RBC Distribution Width SD 61.4 fl (35.1-43.9); Red Blood Count 3.30 M/mm3 (4.2-5.4); White Blood Count 9.8 K/mm3 (4.4-11.0)
[2025-04-27 07:34] LABS: Differential Indicated SCAN CRITERIA MET
--- NOTE | 2025-04-27 07:39 | PCM.PN.HOSP ---
Reason for Visit Chief Complaint: Shortness of breath and poor p.o. intake Subjective Subjective palliative care met with family on 04/26 and they requested hospice in the facility. In the interim, medications have been deescalated and patient transferred to medical surgical floor. Objective Data Objective Data Vital Signs: Vital Signs Temp Pulse Resp BP Pulse Ox O2 Del Method O2 Flow Rate 36.6 C 89 20 H 122/57 H 92 Nasal Cannula 3 04/27/25 03:00 04/27/25 03:00 04/27/25 03:00 04/27/25 03:00 04/27/25 07:20 04/27/25 07:20 04/27/25 07:20 FiO2 35 04/25/25 04:00 Oxygen Flow Rate (L/min) 3 Oxygen Delivery Method Nasal Cannula Weight: 73.4 kg Body Mass Index (BMI) 28.6 Intake & Output: Intake and Output for Last 24 Hours 04/25/25 04/26/25 04/27/25 23:59 23:59 23:59 Intake Total 1272 / 1272 150 / 150 Output Total 675 / 1125 1325 / 1325 350 / 350 Balance 597 / 147 -1175 / -1175 -350 / -350 Lab / Micro Data 04/27/25 06:18 04/27/25 06:18 Labs: Laboratory Results - last 24 hr 04/26/25 10:54: POC Glucose 97 04/26/25 14:08: POC Glucose 99 04/26/25 18:35: POC Glucose 98 04/26/25 23:30: POC Glucose 99 04/27/25 06:00: POC Glucose 91 04/27/25 06:18: WBC 9.8, RBC 3.30 L, Hgb 8.5 L, Hct 29.4 L, MCV 89.1, MCH 25.8 L, MCHC 28.9 L, RDW Std Deviation 61.4 H, RDW Coeff of Vijay 19.7 H, Plt Count 229, MPV 11.7, Immature Gran % (Auto) 0.900, Neut % (Auto) 72.7 H, Lymph % (Auto) 16.4 L, [place] % (Auto) 6.6, Eos % (Auto) 2.7, Baso % (Auto) 0.7, Absolute Neuts (auto) 7.1, Absolute Lymphs (auto) 1.61, Nucleated RBC % 0.9 Micro: Microbiology 04/24/25 12:15 Blood Culture (Wb) - Anticubital Left Blood Culture - Preliminary No growth in 48 hours. 04/24/25 11:49 Blood Culture (Wb) - Anticubital Left Blood Culture - Preliminary No growth in 48 hours. 04/24/25 12:53 Urine, Catheterized Urine Culture - Final Yeast, not Nithya albicans 04/24/25 19:05 Mucosa - Nasopharyngeal Respiratory Panel (PCR) - Final 04/24/25 19:05 Nasal Secretion SARS-CoV-2 Antigen (Rapid) - Final Physical Exam Const Constitutional Narrative: Somnolent. Does not awaken to voice. HEENT head/scalp atraumatic and moist oral mucous membranes Cardio regular rate, regular rhythm, S1 normal heart sound and S2 normal heart sound GI normal to inspection, nondistended, normoactive bowel sounds, soft to palpation, non-tender and non-distended Extremity normal to inspection, full ROM and no clubbing, cyanosis or edema Neuro Sensorium / Orientation: awake and alert Assessment & Plan Assessment/Plan (1) Sepsis: PLAN: Unclear source Follow up BCX, UCx. Respiratory panel, COVID negative. Was on on pip/tazo but since plan is for hospice that has been discontinued. Patient did not receive 30 cc/kg of IV fluids on admission given her history of heart failure and cardiomyopathy. (2) LIA (acute kidney injury): PLAN: On CKD IV. Stable. unable to administer IVF given findings of pulmonary edema on CXR Pt has since been started on furosemide. With the kidney function not worsening despite the furosemide, possibly could be hypoperfusion from her cardiomyopathy. No additional workup given the plan is for hospice. (3) HFrEF (heart failure with reduced ejection fraction): PLAN: Acute on chronic Increased pleural effusion from February. Increased weight on admission from recent discharge about 4 kg. Echo shows an EF 20% (04/13/2025), mild to mod , mild TR (EF down from December where it was 35-40%) since started on furosemide: no ACEi/ARB/Entresto given LIA. No additional workup as patient is planning for hospice. (4) Pleural effusion: PLAN: Worsened from February. Likely 2/2 CHF. Attempt to diuresis as able. If continues to worsen may need to consider thoracentesis. If does become symptomatic may consider palliative thoracentesis. (5) Constipation: PLAN: Resolved before mag citrate administered. (6) Hypernatremia: PLAN: Ongoing since prior to his discharge continue to monitor. (7) Hyperkalemia: PLAN: resolved after treatment (8) Difficult intravenous access: PLAN: PICC line placed PLAN: Plan DM2: on Glargine 5 BID, SSI. GERD: continue PPI. glaucoma: latanoprost VTE prophylaxis: SQ heparin. CODE STATUS: Verified as full upon admission. Pad of care met with the patient's family and the plan is were return to the shelter with hospice services. Patient's CODE STATUS is now DNR Comfort Care arrest no intubation. Disposition: pending arrangement for hospice services at the facility. Charges/Coding Visit Charges Inpatient E&M: 26616 Subs Hosp L2
[2025-04-27 08:06] LABS: AST(SGOT) 231 U/L (<=31); Alanine Aminotransfer ALT/SGPT 337 U/L (<=34); Albumin, Serum 3.3 g/dL (3.4-4.8); Alkaline Phosphatase 145 U/L (35-104); Anion Gap 16 (5-15); BUN 53 mg/dL (4-19); BUN/Creat Ratio 30.0 RATIO (10-20); Calcium,Total 10.8 mg/dL (7.6-11.0); Carbon Dioxide 23.8 mmol/L (21.0-32.0); Chloride 119 mmol/L (98-108); Estimated Creatinine Clearance 23.93 ml/min (50-250); Globulin 3.5 g/dL (2.2-4.2); Glucose 90 mg/dL (70-99); Potassium 3.7 mmol/L (3.3-5.1)
[2025-04-27] MEDS: Azelastine HCl NASAL.SRY 1 SPRAY NASAL (08:15)
--- NOTE | 2025-04-27 08:49 | PN.PALL_ITS ---
Subjective Subjective pt is currently unable to participate. Objective Data Objective Data Vital Signs: Vital Signs Temp Pulse Resp BP Pulse Ox O2 Del Method O2 Flow Rate 97.9 F 89 20 H 122/57 H 92 Nasal Cannula 3 04/27/25 03:00 04/27/25 03:00 04/27/25 03:00 04/27/25 03:00 04/27/25 07:20 04/27/25 07:43 04/27/25 07:43 FiO2 35 04/25/25 04:00 Oxygen Flow Rate (L/min) 3 Oxygen Delivery Method Nasal Cannula Weight: 161 lb 13.109 oz Body Mass Index (BMI) 28.6 Intake & Output: Intake and Output for Last 24 Hours 04/25/25 04/26/25 04/27/25 23:59 23:59 23:59 Intake Total 1272 / 1272 150 / 150 Output Total 675 / 1125 1325 / 1325 350 / 350 Balance 597 / 147 -1175 / -1175 -350 / -350 Lab / Micro Data Attestation: I reviewed the patient's lab results. Lab results narrative: noted abnormal labs: Na+ 159, hemoglobin 8.5, BUN 53, Creat. 1.77, GFR 23, AST 231, ALT 337, ALK phos 145, ALbumin 3.3 04/27/25 06:18 04/27/25 06:18 Labs: Laboratory Results - last 24 hr 04/26/25 10:54: POC Glucose 97 04/26/25 14:08: POC Glucose 99 04/26/25 18:35: POC Glucose 98 04/26/25 23:30: POC Glucose 99 04/27/25 06:00: POC Glucose 91 04/27/25 06:18: WBC 9.8, RBC 3.30 L, Hgb 8.5 L, Hct 29.4 L, MCV 89.1, MCH 25.8 L , MCHC 28.9 L, RDW Std Deviation 61.4 H, RDW Coeff of Vijay 19.7 H, Plt Count 229, MPV 11.7, Immature Gran % (Auto) 0.900, Neut % (Auto) 72.7 H, Lymph % (Auto) 16.4 L, [place] % (Auto) 6.6, Eos % (Auto) 2.7, Baso % (Auto) 0.7, Absolute Neuts (auto) 7.1, Absolute Lymphs (auto) 1.61, Nucleated RBC % 0.9, Platelet Estimate ADEQUATE, Sodium 159 H, Potassium 3.7, Chloride 119 H, Carbon Dioxide 23.8, A nion Gap 16 H, BUN 53 H, Creatinine 1.77 H, Estim Creat Clear Calc 23.93 L, Est GFR (MDRD) Non-Af 29 L, BUN/Creatinine Ratio 30.0 H, Glucose 90, Calcium 10.8, Total Bilirubin 0.50, AST 231 H, ALT 337 H, Alkaline Phosphatase 145 H, Total Protein 6.8, Albumin 3.3 L, Globulin 3.5, Albumin/Globulin Ratio 0.9 Micro: Microbiology 04/24/25 12:53 Urine, Catheterized Urine Culture - Final Yeast, not Nithya albicans 04/24/25 12:15 Blood Culture (Wb) - Anticubital Left Blood Culture - Preliminary No growth in 48 hours. 04/24/25 11:49 Blood Culture (Wb) - Anticubital Left Blood Culture - Preliminary No growth in 48 hours. 04/24/25 19:05 Mucosa - Nasopharyngeal Respiratory Panel (PCR) - Final 04/24/25 19:05 Nasal Secretion SARS-CoV-2 Antigen (Rapid) - Final Physical Exam Narrative Pt is currently obtunded. Lung sounds are significantly diminished and she is using accessory muscles to breathe. Discussion with RN to administer Morphine SC as she did remove her PICC overnight. She did receive 2 doses of Ativan overnight. Const Negative for alert, oriented x3, no apparent distress, average body habitus, no limitations or healthy appearing Orientation / Consciousness: obtunded HEENT Mouth: dry mucous membranes and other Resp No normal respiratory effort, No normal air movement, No no retractions, No no use of accessory muscles, No clear to auscultation bilaterally and No percussion normal Effort and Inspection: labored, uses accessory muscles and paradoxical thoraco- abdominal movements Auscultation: diminished lung sounds bilateral Cardio regular rate Extremity General Extremity: edema Neuro No oriented x3, No CN's II-XII intact bilaterally, No no focal motor deficits and No deep tendon reflexes 2+ bilaterally Neuro Narrative: obtunded Sensorium / Orientation: obtunded Psych Activity / Motor Behavior: restless Charges/Coding Multi Select Codes Palliative Care Palliative Care: 81138 Follow up 50+ min Consulation Summary Current admission Current Code Status: DNRCC Associated Diagnosis: dyspnea, LIA, hypernatremia Consult Data Date of Consult: 04/26/25 Location of consult: ICU to OR3 Reason for referral: Goals of care Referral source: Dr. Veras Palliative care diagnosis (Summary list): CHF with reduced EF of 20%, sepsis, LIA, Hyperkalemia Palliative care services/treatment (Accepted, as consult): Excepted by Sarita santos Junior Case discussed with referring provider: current status and pending DC Palliative Assessment Advanced Directive - Current Admission Advance Directive: Advance Directive ON ADMISSION - REFERENCE 3 Do you have a Healthcare Yes 04/24/25 19:25 Living Will? Is a Healthcare Living Will Yes, It is scanned in 04/24/25 19:25 present in the medical record? Do you have a Healthcare Power Yes 04/24/25 19:25 of Valet Service Attendant? Is a Healthcare Power of Yes, It is scanned in 04/24/25 19:25 Valet Service Attendant present in the medical rec Do You Want Additional Yes 04/24/25 19:25 Information on Advanced Directives or Healthcare Proxy/DPOA comments: danielle Stein Symptoms Dyspnea symptoms: Severe (use of accessory muscles to breathe ) Nausea symptoms: None Vomiting symptoms: None Weakness symptoms: Severe Confusion symptoms: Severe Side Effects & Interventions: pt is currently obtunded Impression & Recommendations Impressions Impressions: 04/27/25: The pt is currently obtunded with use of accessory muscles to breathe. She appears to be actively dying. Will continue to monitor. Family meeting with hospice scheduled for today at 1330. I do recommend that the pt goes to the IPU with [facility] as she does qualify for services there. Overnight she received 2 doses of Ativan for restlessness. She did remove her own PICC overnight and will now receive medications SC for symptom management or SL. Message received from MILE to contact the patients for update as he is alert appears to understand the gravity of his wifes illness today. I did contact him via phone to update him about his wifes status currently and the discussion that I had with both Olga and his son today. He stated that he understands. He endorsed the decision Olga paco Sarita Erazo made yesterday to transition to Hospice services. He is aware that Olga's needs would best be met in the IPU as she is currently obtunded. He wants his to be comfortable for whatever time she has left. He plans to sit in on the meeting at 1330 via telephone. All questions answered. I did reassess Olga prior to the meeting with Hospice. She is currently moaning and not answering questions. Continues to use accessory muscles and recommended nursing to administer Morphine SC. Met with hospice nurse, whom states that she is eligable for IPU and will make that recommendation. Family has not arrived, yet for meeting . 04/26/2025 JPG: Prior to meeting with the patient at bedside, I reviewed documentation, labs and radiological studies. I also discussed patient's progress with RN. Per RN, patient continually takes nasal cannula out of her nose. Oxygen saturations on room air are 83% she is on home O2 at 2 L. I was consulted by the ICU physician for goals of care conversation as the patient is currently a full code and has had multiple hospital admissions in the last month. 02/15/2025 to 02/17/2025, 03/21/2025 to 03/25/2020:, 04/02/2025 to 04/08/2025, 04/13/2025 to 04/21/2025 and then readmitted on 04/24 for worsening symptoms. After discharge 04/21/2025 patient did go to [facility] and then readmitted. On readmission chest x-ray does show that the patient has bilateral pleural effusion possibly requiring thoracentesis, LIA with a BUN of 58, creatinine of 1.97 and a GFR 25. She is hyperatremic at 154. CT of the abdomen did show gallstones. She has an elevated liver enzymes AST 1312, ALT 489 and alkaline phosphate 163. I then met with the patient, Olga, at bedside. She was minimally interactive and was only able to tell me her date of being the fourth but was unable to tell me the year. Any other orientation questions were met with mumbles. She did not open her eyes during assessment. Patient was not able to provide review of systems. I then contacted the patient's family to set up a family meeting for goals of care going forward given the patient's multiple admissions to the hospital as well as declining mental and physical status. I did speak with her son, Diann Gatica whom is POA, during a family meeting at bedside with Olga (after Olga's whom is unable to participate in [facility] meeting related to dementia. ) Olga was alert and oriented x 2 during the meeting. She immediately recognized her son and was able to state his name, that she was in the hospital, she knew her name and date of . She was confused about the date and year. We were able to have a meaningful conversation about [facility] with her and Sarita ErazoJesus Arias endorsed that she does not wish to have CPR or be intubated. I discussed this with Sarita and he is in agreement that if his mothers heart were to stop, that we will allow for natural and provide comfort. Both are in agreement. We then discussed current quality of life issues. Sarita did express that his mother is mostly in bed and has not been able to get out of bed in a while. We discussed his mothers heart failure and latest ECHO with an EF of 20%. I explained to him what that means and he states understanding. She confirmed that she is tired of coming to the hospital and has been in the hospital more than out. We discussed options going forward to include hospice. Olga and Sarita both stated that they are familiar with hospice. I provided them with information about what that would look like for her. Olga states that she wants to no longer have blood draws and just wants to be comfortable. Sarita agreed with his mother and would like to transition Olga back to [facility] on hospice. They would like to start comfort measures here in the hospital. I did have Sarita ErazoJesus sign the DNRCC paperwork. Nurse, , did come to bedside to also confirm the decisions that Olga and Sarita were making and feels that they are aware of their decision and have good insight. All questions were answered. per ICU provider:OLGA DONALDSON, is [id number] female with a history of COPD, chronic hypoxic respiratory failure on home O2, GERD, diabetes, chronic diastolic heart failure who presented to [facility] ED 04/24/2025 with shortness of breath that worsened today. That has gradually worsened and is constant with no cough or chest pain. Patient did have decreased level of consciousness as well on presentation and is somewhat poor informant so history was obtained per report. Reportedly patient seen by HOURLY SIGN LANGUAGE INTERPRETER at extended care facility and had been reporting some abdominal pain and decreased p.o. intake today as well as shortness of breath. When she refused blood work she was referred to the ED. In the ED temp 98.6, heart rate 93 and blood pressure 184/56, respiratory rate initially 42 and pulse ox 100% on 2 L nasal cannula. CBC showed a white blood cell count of 14.7, hemoglobin 8.2, sodium of 149 with potassium of 5.5, BUN of 53 and creatinine 2 which is up from 1.65 yesterday. AST found to be 1300 with an ALT of 489, alk phos of 163 and normal bili. UA somewhat suspicious however bacteria negative and lactic acid 3.9. VBG obtained which showed a pH of 7.47, bicarb of 33 with total carbon oxide of 34. Lipase 15 with ammonia 18.4. Chest x-ray demonstrated cardiomegaly and vascular congestion with CHF. Patient had Serna placed in the ED with instantly 1500 cc of dark urine out. CT abdomen pelvis with limited evaluation due to residual contrast in the abdomen but large amount of fecal material in rectum and distal colon, gallstones in dependent portion of gallbladder lumen, bilateral pleural effusions left greater than right with bibasilar infiltrate and/or atelectasis. Patient started on Rocephin for possible urinary source and hospitalist contacted for admission. Patient evaluated at bedside patient unable to purposely answer questions and is agitated and restless. Unable to obtain any additional history given patient's mental status and no family available at bedside. Recommentation Palliative recommendations: based on presentation today, I do feel this patient would qualify for the IPU and would be best served there. Encouter Achieved as a result of this Palliative Care Encounter: [ [id number], [id number], [id number], [id number]] minutes were spent in total for this visit which consisted, primarily of counseling and education dealing with the complex and emotionally intense issues of symptom management and palliative care in the setting of serious and potentially life-threatening illness. Review of documentation, labs and radiological studies. ?Patient/family had the opportunity to ask questions Plan (1) Palliative care encounter: PLAN: -given pts presentation today, this pt would qualify for IPU with [facility] -[facility] meeting [facility] at [facility]30 -continue to give Morphine for symptom management. -Ativan as needed for restlessness (2) HFrEF (heart failure with reduced ejection fraction): PLAN: Pt is currently comfort measures only (3) Pleural effusion: PLAN: utilize Morphine SC for Dyspnea or preceieved pain (4) Hypernatremia: PLAN: comfort measures only
[2025-04-27 09:00] VITALS: BP 120/108; PULSE 94; RESP 40; TEMP 36.2; O2SAT 100
[2025-04-27] MEDS: morphine (oral solution) 10MG/0.5ML Syringe 5 MG SL/PO ×3 (09:51→16:28)
--- NOTE | 2025-04-27 10:29 | CASEMGMT ---
Social Work SW spoke with Palliative Care PULLBOAT ENGINEER who states pt would likely be appropriate for the IPU at [facility]. PULLBOAT ENGINEER notified of time of hospice meeting. Phone call received from pt's spouse inquiring about plan for pt. SW explained meeting between PULLBOAT ENGINEER and pt son yesterday and planned meeting with hospice today at 1:30. Spouse requested to be on speaker phone during meeting. MILE spoke with PULLBOAT ENGINEER and requested she call pt spouse and provide medical update on pt and reason for hospice referral. MILE provided emotional support to spouse. TANIA Mandujano
[2025-04-27 14:00] VITALS: BP 113/56; PULSE 87; RESP 36; TEMP 36.2; O2SAT 100
--- NOTE | 2025-04-27 14:14 | CASEMGMT ---
Social Work Nurse from [facility] has assessed pt and plan is for pt to go to the IPU today. [facility] notified. [place] [facility]. [facility]. TANIA Mandujano
--- NOTE | 2025-04-27 14:24 | PCM.DC.SUM ---
Providers Date of Admission: 04/24/25 Primary Care Physician: Dr. Axel Nicholas MD Consultations 04/24/25 18:49 Consult: Bi Application Developer / Pulmonary Medicine Routine Consulting Provider: Intensivists/Pulmonary Med Reason for Consult: sepsis, ?basilar infiltrate, unclear definitive source EMERGENT Consult: No MD Notified: Yes Date Notified: 04/24/25 Time Notified: 19:04 Method of Notification: Answering Service 04/26/25 13:37 Consult: Hospice / Outpatient Palliative Care Routine Consulting Provider: [facility] Reason for Consult: Pt wants to return to [place] with hospice services EMERGENT Consult: Yes MD Notified: Yes Date Notified: 04/26/25 Time Notified: 13:37 Method of Notification: Text Reason For Visit: SEPSIS Diagnosis Discharge Diagnosis (1) Palliative care encounter: Status: Acute Code(s): Z51.5 - Encounter for palliative care (2) HFrEF (heart failure with reduced ejection fraction): Status: Acute Code(s): I50.20 - Unspecified systolic (congestive) heart failure Plan: Acute on chronic Increased pleural effusion from February. Increased weight on admission from recent discharge about 4 kg. Echo shows an EF 20% (04/13/2025), mild to mod , mild TR (EF down from December where it was 35-40%) since started on furosemide: no ACEi/ARB/Entresto given LIA. No additional workup as patient is planning for hospice. (3) Pleural effusion: Status: Acute Code(s): J90 - Pleural effusion, not elsewhere classified Plan: Worsened from February. Likely 2/2 CHF. Attempt to diuresis as able. If continues to worsen may need to consider thoracentesis. If does become symptomatic may consider palliative thoracentesis. (4) Hypernatremia: Status: Acute Code(s): E87.0 - Hyperosmolality and hypernatremia Plan: Ongoing since prior to his discharge continue to monitor. Plan DM2: on Glargine 5 BID, SSI. GERD: continue PPI. glaucoma: latanoprost VTE prophylaxis: SQ heparin. CODE STATUS: Verified as full upon admission. Pad of care met with the patient's family and the plan is were return to the long term with hospice services. Patient's CODE STATUS is now DNR Comfort Care arrest no intubation. Disposition: pending arrangement for hospice services at the facility. Medications at Discharge Home Medications budesonide 160 mcg-glycopyr 9 mcg-formot 4.8 mcg/actuation HFA inhaler (Breztri Aerosphere) 2 inh inhalation BID breathing 01/07/25 netarsudil 0.02 %-latanoprost 0.005 % eye drops (Rocklatan) 1 drp EACH EYE DAILY eye drops 01/15/25 cetirizine 10 mg tablet 10 mg PO DAILY allergy 02/09/25 guaifenesin 600 mg tablet, extended release 12 hr (Mucinex) 600 mg PO BID cough #0 tabs 02/17/25 azelastine 137 mcg-fluticasone 50 mcg/spray nasal spray 1 spray intranasal BID 04/24/25 diazepam 2 mg tablet 2 mg PO BID muscle spasm 04/24/25 acetaminophen 650 mg rectal suppository 650 mg IN Q4H PRN PRN Pain 1-10 Or Fever #0 ea 04/27/25 acetaminophen 650 mg/20.3 mL oral solution 650 mg (20.3 mL) PO Q4H PRN PRN Pain 1-10 Or Fever #0 mL 04/27/25 bisacodyl 10 mg rectal suppository 10 mg IN DAILY PRN PRN Constipation #0 ea 04/27/25 glycopyrrolate 0.2 mg/mL injection solution 0.1 mg (0.5 mL) IV Q4H PRN Congestion #0 mL 04/27/25 lorazepam 2 mg/mL oral concentrate 0.5 mg (0.25 mL) sublingual Q4H PRN PRN Agitation #0 mL 04/27/25 morphine concentrate 10 mg/0.5 mL oral syringe (FOR ORAL USE ONLY) 5 mg (0.25 mL) PO/SL Q2H PRN PRN Pain 7-10/ RR >22 #0 ea 04/27/25 promethazine 25 mg tablet 12.5 mg (1/2 x 25 mg) PO/SL Q6H PRN PRN Nausea/Vomiting #0 tabs 04/27/25 saliva substitute combo no.9 (Biotene Dry Mouth Oral Rinse mouthwash) 15 ml mucous membrane Q1H PRN PRN Dry Mouth #0 mL 04/27/25 Hospital Course Operations None Procedures None Summary of Care Provided Hospital Course: Patient presented with concerns for sepsis. Unclear source. Patient was started on broad-spectrum antibiotics with pip-tazo. Patient also had acute kidney injury as well and was markedly constipated. Patient has a history of a cardiomyopathy with an EF of 20%. But patient was very confused and overall just appeared very unwell and had his had frequent hospitalization just this month. Palliative care was consulted and met with the patient's family. Plan is for the patient go to inpatient hospice unit today. Patient's CODE STATUS has been changed to DNR comfort care. Weight / BMI Weight Weight: 73.4 kg Body Mass Index (BMI) 28.6 ABG / Lab / Microbiology Data 04/27/25 06:18 04/27/25 06:18 Laboratory: Laboratory Results - last 24 hr 04/26/25 14:08: POC Glucose 99 04/26/25 18:35: POC Glucose 98 04/26/25 23:30: POC Glucose 99 04/27/25 06:00: POC Glucose 91 04/27/25 06:18: WBC 9.8, RBC 3.30 L, Hgb 8.5 L, Hct 29.4 L, MCV 89.1, MCH 25.8 L, MCHC 28.9 L, RDW Std Deviation 61.4 H, RDW Coeff of Vijay 19.7 H, Plt Count 229, MPV 11.7, Immature Gran % (Auto) 0.900, Neut % (Auto) 72.7 H, Lymph % (Auto) 16.4 L, [place] % (Auto) 6.6, Eos % (Auto) 2.7, Baso % (Auto) 0.7, Absolute Neuts (auto) 7.1, Absolute Lymphs (auto) 1.61, Nucleated RBC % 0.9, Platelet Estimate ADEQUATE, Sodium 159 H, Potassium 3.7, Chloride 119 H, Carbon Dioxide 23.8, Anion Gap 16 H, BUN 53 H, Creatinine 1.77 H, Estim Creat Clear Calc 23.93 L, Est GFR (MDRD) Non-Af 29 L, BUN/Creatinine Ratio 30.0 H, Glucose 90, Calcium 10.8, Total Bilirubin 0.50, AST 231 H, ALT 337 H, Alkaline Phosphatase 145 H, Total Protein 6.8, Albumin 3.3 L, Globulin 3.5, Albumin/Globulin Ratio 0.9 Microbiology: Microbiology 04/24/25 12:53 Urine, Catheterized Urine Culture - Final Yeast, not Nithya albicans 04/24/25 12:15 Blood Culture (Wb) - Anticubital Left Blood Culture - Preliminary No growth in 48 hours. 04/24/25 11:49 Blood Culture (Wb) - Anticubital Left Blood Culture - Preliminary No growth in 48 hours. 04/24/25 19:05 Mucosa - Nasopharyngeal Respiratory Panel (PCR) - Final 04/24/25 19:05 Nasal Secretion SARS-CoV-2 Antigen (Rapid) - Final D/C Instructions DC O2, CPAP, BIPAP Needs Home O2 Discharge instructions: Yes Type of respiratory needs?: Oxygen Oxygen frequency: Continuous Continuous oxygen liters per minute: 3 DC home with Oxygen: Yes Home O2 MD Review: I have reviewed the oxygen testing, and the patient qualifies for home oxygen equipment and portability. The patient is mobile in the home and the community. Meaningful Use Info Meaningful Use Meaningful Use Diagnoses (Choose all that apply): CHF CHF ALBA/ARB ordered at discharge?: No Reason ALBA/ARB not ordered?: Worsening renal dysfunctn Documented LVEF (%): 20 Discharge Plan Admission Admit Date/Time: 04/24/25 17:12 Primary Reason for Your Visit: sepsis. pneumonia Attending Provider: Ramone Veras Primary Care Provider: Axel Nicholas Consulting Providers: Heydi Amaya; Sandeep Nunez; Mindy Wagner; Queta Cortez; Mariah Childers; Emma Denson ZOOLOGY TECHNICAL OFFICER; Trista Rolle Discharge Orders/Prescriptions Prescriptions: New acetaminophen 650 mg Suppository 650 mg IN Q4H PRN PRN (Reason: Pain 1-10 Or Fever) Qty: 0 0RF glycopyrrolate 0.2 mg/mL Solution 0.1 mg IV Q4H PRN (Reason: Congestion) Qty: 0 0RF bisacodyl 10 mg Suppository 10 mg IN DAILY PRN PRN (Reason: Constipation) Qty: 0 0RF promethazine 25 mg Tablet 12.5 mg PO/SL Q6H PRN PRN (Reason: Nausea/Vomiting) Qty: 0 0RF lorazepam 2 mg/mL Concentrate 0.5 mg sublingual Q4H PRN PRN (Reason: Agitation) Qty: 0 0RF acetaminophen 650 mg/20.3 mL Solution 650 mg PO Q4H PRN PRN (Reason: Pain 1-10 Or Fever) Qty: 0 0RF Biotene Dry Mouth Oral Rinse Mouthwash 15 ml mucous membrane Q1H PRN PRN (Reason: Dry Mouth) Qty: 0 0RF morphine concentrate 10 mg/0.5 mL Syringe 5 mg PO/SL Q2H PRN PRN (Reason: Pain 7-10/ RR >22) Qty: 0 0RF Continued Rocklatan 0.02-0.005 % Drops 1 drp EACH EYE DAILY cetirizine 10 mg tablet 10 mg PO DAILY guaifenesin [Mucinex] 600 mg Tablet Extended Release 12hr 600 mg PO BID Qty: 0 0RF azelastine-fluticasone 137-50 mcg/spray spray,non-aerosol 1 spray intranasal BID Rx Instructions: administer into each nostril diazepam 2 mg tablet 2 mg PO BID Breztri Aerosphere 160-9-4.8 mcg/actuation HFA aerosol inhaler 2 inh inhalation BID Discontinued Jardiance 10 mg tablet 10 mg PO DAILY multivitamin Tablet 1 tab PO DAILY aspirin 81 MG tablet,chewable 81 mg PO DAILY magnesium oxide 400 MG tablet 400 mg PO BID pantoprazole 40 MG tablet 40 mg PO DAILY roflumilast 500 mcg tablet 500 mcg PO DAILY ascorbic acid (vitamin C) [Vitamin C] 250 mg tablet 250 mg PO DAILY menthol-zinc oxide [CalaSoothe] 0.44-20.6 % ointment 1 applic topical 4X/DAY PRN (Reason: skin irritation) psyllium husk [Daily Fiber] 0.4 gram capsule 0.4 g PO DAILY mecobalamin (vitamin B12) [B12 Active] 1,000 mcg tablet,chewable 1,000 mcg PO DAILY albuterol sulfate 90 mcg/actuation HFA aerosol inhaler 2 puff inhalation Q6H PRN (Reason: shortness of breath or wheezing) gabapentin 100 mg capsule 100 mg PO QHS 3 Days Qty: 3 0RF acetaminophen 325 mg Tablet 650 mg PO Q6H PRN PRN (Reason: Pain 1-10 Or Fever>100.7) Qty: 0 0RF ipratropium-albuterol 0.5 mg-3 mg(2.5 mg base)/3 mL Solution For Nebulization 3 ml inhalation Q6HWA.RT Qty: 0 0RF hydroxyzine HCl 10 mg Tablet 10 mg PO QHS Qty: 0 0RF insulin lispro [Humalog KwikPen Insulin] 100 unit/mL Insulin Pen See Protocol subcut ACHS Qty: 0 0RF Protocol: 4. Sliding Scale Insulin High-Med Dosing Condition: 150-199 mg/dl = 2 units Condition: 200-259 mg/dl = 4 units Condition: 260-324 mg/dl = 6 units Condition: 325-374 mg/dl = 8 units Condition: 375-409 mg/dl = 10 units Condition: 410-449 mg/dl = 11 units Condition: Greater than 449 call physician Protocol Text: Suggested for: - Patients on Total Daily Insulin Dose of 56-80 units - Patient who are known to be insulin resistant or septic HIGH MEDIUM DOSING ALGORITHM ipratropium bromide 21 mcg (0.03 %) spray,non-aerosol 2 spray INTRANASAL Q6H Patient Comments: [NO ORIGINAL SIG] sacubitril-valsartan [Entresto] 24-26 mg tablet 1 tab PO BID Januvia 50 mg tablet 50 mg PO DAILY Mounjaro 5 mg/0.5 mL pen injector 5 mg SUBCUT QWEEK Patient Comments: [NO ORIGINAL SIG] potassium chloride 20 mEq tablet,ER particles/crystals 20 meq PO BID insulin glargine-yfgn 100 unit/mL (3 mL) Insulin Pen 20 unit subcut BID pravastatin 20 mg tablet 20 mg PO DAILY loratadine [Allerclear] 10 mg tablet 10 mg PO DAILY (DME) lancets [TRUEplus Lancets] 28 gauge misc MISCELLANEOUS furosemide 20 mg Tablet 60 mg PO DAILY Qty: 90 2RF metoprolol tartrate 25 mg Tablet 25 mg PO BID Qty: 60 2RF Referrals / Follow Up: Axel Nicholas MD [Primary Care Provider] - Disposition Disposition (needs filled in before D/C Order can be placed): Hospice in Medical Facility Charges/Coding Visit Charges Inpatient E&M: 93332 Disch Hosp
--- NOTE | 2025-04-27 14:54 | PHA.DC_ITS ---
Pharmacy [place] Med Reconciliation Pharmacy Service has performed discharge medication reconciliation for this patient. The patient's discharge medication list was reviewed for discrepancies and discrepancies were resolved. Medications at Discharge Home Medications budesonide 160 mcg-glycopyr 9 mcg-formot 4.8 mcg/actuation HFA inhaler (Breztri Aerosphere) 2 inh inhalation BID breathing 01/07/25 netarsudil 0.02 %-latanoprost 0.005 % eye drops (Rocklatan) 1 drp EACH EYE DAILY eye drops 01/15/25 cetirizine 10 mg tablet 10 mg PO DAILY allergy 02/09/25 guaifenesin 600 mg tablet, extended release 12 hr (Mucinex) 600 mg PO BID cough #0 tabs 02/17/25 azelastine 137 mcg-fluticasone 50 mcg/spray nasal spray 1 spray intranasal BID 04/24/25 diazepam 2 mg tablet 2 mg PO BID muscle spasm 04/24/25 acetaminophen 650 mg rectal suppository 650 mg OK Q4H PRN PRN Pain 1-10 Or Fever #0 ea 04/27/25 acetaminophen 650 mg/20.3 mL oral solution 650 mg (20.3 mL) PO Q4H PRN PRN Pain 1-10 Or Fever #0 mL 04/27/25 bisacodyl 10 mg rectal suppository 10 mg OK DAILY PRN PRN Constipation #0 ea 04/27/25 glycopyrrolate 0.2 mg/mL injection solution 0.1 mg (0.5 mL) IV Q4H PRN Congestion #0 mL 04/27/25 lorazepam 2 mg/mL oral concentrate 0.5 mg (0.25 mL) sublingual Q4H PRN PRN Agitation #0 mL 04/27/25 morphine concentrate 10 mg/0.5 mL oral syringe (FOR ORAL USE ONLY) 5 mg (0.25 mL) PO/SL Q2H PRN PRN Pain 7-10/ RR >22 #0 ea 04/27/25 promethazine 25 mg tablet 12.5 mg (1/2 x 25 mg) PO/SL Q6H PRN PRN Nausea /Vomiting #0 tabs 04/27/25 saliva substitute combo no.9 (Biotene Dry Mouth Oral Rinse mouthwash) 15 ml mucous membrane Q1H PRN PRN Dry Mouth #0 mL 04/27/25
== END 2025-04-27 18:37 | disposition hospice, inpatient (51) | DRG 291 ==
LOC: ED 17:05 → ICU 17:21 → MS3 04-26 14:51
PROVIDERS: Admitting Provider Internal Medicine; Emergency Provider Emergency Medicine; PCP Internal Medicine
DX: I13.0 Hypertensive heart and chronic kidney disease with heart failure and stage 1 through stage 4 chronic kidney disease, or unspecified chronic kidney disease (principal); I50.23 Acute on chronic systolic (congestive) heart failure; N17.9 Acute kidney failure, unspecified; J96.11 Chronic respiratory failure with hypoxia; N18.4 Chronic kidney disease, stage 4 (severe); E11.22 Type 2 diabetes mellitus with diabetic chronic kidney disease; D50.9 Iron deficiency anemia, unspecified; E11.42 Type 2 diabetes mellitus with diabetic polyneuropathy; Z51.5 Encounter for palliative care; Z66 Do not resuscitate; J44.9 Chronic obstructive pulmonary disease, unspecified; F32.A Depression, unspecified; I35.0 Nonrheumatic aortic (valve) stenosis; E87.5 Hyperkalemia; E11.51 Type 2 diabetes mellitus with diabetic peripheral angiopathy without gangrene; E78.5 Hyperlipidemia, unspecified; I25.10 Atherosclerotic heart disease of native coronary artery without angina pectoris; F41.9 Anxiety disorder, unspecified; K21.9 Gastro-esophageal reflux disease without esophagitis; Z79.4 Long term (current) use of insulin; K59.04 Chronic idiopathic constipation; E83.42 Hypomagnesemia; R74.8 Abnormal levels of other serum enzymes; H40.9 Unspecified glaucoma; Z99.81 Dependence on supplemental oxygen; Z79.84 Long term (current) use of oral hypoglycemic drugs; Z79.51 Long term (current) use of inhaled steroids; Z79.85 Long-term (current) use of injectable non-insulin antidiabetic drugs; Z79.82 Long term (current) use of aspirin; Z86.718 Personal history of other venous thrombosis and embolism; Z79.899 Other long term (current) drug therapy; Z87.891 Personal history of nicotine dependence
CPT/HCPCS: 36415; 36569; 51702; 71045; 74176; 80048; 80053; 81001; 82140; 82803; 82962; 83605; 83690; 83880; 85025; 85610; 85730; 87040; 87086; 87088; 87633; 87811; 92610; 93005; 94002; 94003; 94640; 94762; 99285; A4216; J0612; J0696; J1938